=== PATIENT | female | born 1995 | race Caucasian/White ===

== ENCOUNTER 2022-07-21 11:40 | Day surgery (SDC) | payer OTHER, SELFPAY ==
[2022-07-21] VITALS (13 sets, daily range): BP systolic 110–158; BP diastolic 57–99; PULSE 86–136; RESP 12–26; TEMP 36.6–36.9; O2SAT 93–100; BMI 45.2
[2022-07-21 12:16] LABS: Hematocrit 40.3 % (36.0-48.0); Hemoglobin 13.6 g/dL (12.0-16.0); Mean Corpuscular HGB Conc 33.7 g/dL (29.9-35.2); Mean Corpuscular Volume 85.9 fL (81.0-99.0); Mean Platelet Volume 9.9 fL (9.5-13.5); Platelet Count 231 10^3/uL (150-450); Red Blood Count 4.69 10^6/uL (4.20-5.40); Red Cell Distribution Width 13.1 % (11.0-15.0); White Blood Count 8.1 10^3/uL (4.0-11.0)
[2022-07-21] MEDS: LACTATED RINGER'S SOLUTION 1,000 ML 50 ML IV ×3 (12:31→17:21)
[2022-07-21] MEDS: SCOPOLAMINE 1 EACH PATCH.TD.3 1 PATCH TD (12:50)
--- NOTE | 2022-07-21 15:17 | PC.NURSE ---
250 ML CLEAR PALE URINE NOTED
[2022-07-21] MEDS: LORAZEPAM 2 MG/ML 1 ML VIAL 0.5 MG IV (16:17)
[2022-07-21] MEDS: MIDAZOLAM HCL 2 MG/2 ML VIAL (16:24)
[2022-07-21] MEDS: HYDROMORPHONE HCL 1 MG/ML CARTRIDGE INJ (16:27)
--- NOTE | 2022-07-21 16:32 | PC.NURSE ---
1600- Patient arrives to PACU bay #2. Patient unresponsive to verbal and tactile stimuli. 1607- Patient jerking and shaking in bed. Unable to arouse patient. Pupil equal in size. Dr. Hallman aware. New orders received and patient medicated with Versed as ordered. 1617- Patient continues with jerking and twitching motion. Patient medicated with Ativan as ordered. Patient remains non-responsive to verbal and tactile stimuli. 1627- Patient more awake and c/o abdomina pain. Patient medicated with Dilaudid for pain as ordered.
[2022-07-21] MEDS: PROMETHAZINE HCL 25 MG/ML VIAL IM (16:50)
--- NOTE | 2022-07-21 17:16 | PC.NURSE ---
states that she typically requires a lot of pain medication.
--- NOTE | 2022-09-16 07:46 | PM.ONB ---
Brief Operative Note Date of procedure: 07/21/22 Pre-op diagnosis: PELVIC PAIN Post-op diagnosis: same Procedure: NAME OF PROCEDURE: [diagnostic laparoscopy with lysis of adhesions ] PROCEDURE: The patient was taken back to the Operating Room where she was placed in dorsal lithotomy position after given general anesthesia. The patient was prepped and draped in normal sterile fashion. A sponge stick was placed into the patient's vagina. Attention was turned to the patient's abdomen, where a small umbilical incision was made. The fascia was tented using Cherie clamps and the fascia was entered sharply. Confirmation of intraabdominal placement of the 10 mm port was confirmed under direct visualization using a laparoscope. The patient's abdomen was then insufflated using CO2 gas with approximately 4 liters. A second port was placed left laterally, this was done under direct visualization with a 5 mm port. Survey of the patient's abdomen demonstrated normal liver and gallbladder. Survey of the patient's pelvic anatomy demonstrated normal appearing ovaries and tubes as well as normal appearing uterus. No endometrial implants could be noted, no evidence of any pelvic disease was seen, normal appearing pelvic cavity. All instruments were removed from the patient's abdomen. The patient's abdomen was deinsufflated of CO2 gas. Lysis of adhesions bluntly The patient tolerated the procedure well. Sponge stick was removed from the patient's vagina. The patient's infraumbilical fascia was closed using #0 Vicryl on a GI needle. The patient's skin was closed laterally and infraumbilically using 4-0 Vicryl. The patient tolerated the procedure well. Sponge, lap and needle counts were correct x 2. The patient was taken to Recovery Room in stable condition.Clips from prior surgery noted adhered to bladder, the clips were grasped and gently removed
== END 2022-07-21 18:15 | disposition home or self-care (01) ==
LOC: SURGOUT 07-22 09:04
PROVIDERS: Visit Provider Obstetrics & Gynecology
PROC: (CPT 840; principal; 2022-07-21 13:20)
DX: R10.2 Pelvic and perineal pain (principal); N39.3 Stress incontinence (female) (male); J45.909 Unspecified asthma, uncomplicated; Z90.49 Acquired absence of other specified parts of digestive tract; Z90.710 Acquired absence of both cervix and uterus
CPT/HCPCS: 49329; 36415; 85027; J1170; J2704

== ENCOUNTER 2022-07-30 17:42 | Emergency (ER) | payer OTHER, SELFPAY ==
[2022-07-30 17:48] VITALS: BP 128/78; PULSE 85; RESP 16; TEMP 37.2; O2SAT 97; BMI 46.2
--- NOTE | 2022-07-30 18:23 | ED_ITS ---
HPI - Abdominal Pain General Chief Complaint: Abdominal Pain Stated Complaint: POST OP ISSUES Time Seen by Provider: 07/30/22 18:23 Source: patient Mode of arrival: walk-in History of Present Illness HPI narrative: Patient states on July 21 she had a laparoscopic surgery for lysis of adhesions done by Dr. Blas. She has nathan and the umbilical incision. She states she was given a prescription for 6-10 [place] since she is out of them. She states she is having pain just over the incision. She denies any abdominal pain, fever, chills, cough, chest pain, shortness of breath. She denies any wound adhesions, or drainage. She has taken Tylenol and Motrin has not had any relief of the pain. She denies any flank pain, hematuria, dysuria. She denies any vaginal bleeding, discharge. She denies any nausea, vomiting, diarrhea, or constipation. She denies any trauma. She has an appointment on Monday with Dr. Blas. Related Data Home Medications Medication Instructions Recorded Confirmed albuterol sulfate 0.63 mg/3 mL 90 mg inhalation Q4H PRN wheezing 07/20/22 07/20/22 solution for nebulization baclofen 10 mg tablet 10 mg PO Q8H 07/20/22 07/20/22 budesonide-formoterol HFA 160 2 inh inhalation BID 07/20/22 07/20/22 mcg-4.5 mcg/actuation aerosol inhaler (Symbicort) diazepam 10 mg tablet mg 07/20/22 epinephrine 0.3 mg/0.3 mL 0.3 mg IM Q10M PRN anaphylaxis 07/20/22 07/20/22 injection, auto-injector lamotrigine 150 mg tablet 150 mg PO .qhs 07/20/22 07/20/22 (Lamictal) lamotrigine 25 mg tablet (Lamictal) 25 mg PO QDAY 07/20/22 07/20/22 lithium carbonate 150 mg capsule 150 mg PO QDAY 07/20/22 07/20/22 lithium carbonate 300 mg tablet 300 mg PO .qhs 07/20/22 07/20/22 loratadine 10 mg tablet 10 mg PO QDAY 07/20/22 07/20/22 loratadine 10 mg tablet mg 07/20/22 montelukast 10 mg tablet mg 07/20/22 promethazine 25 mg tablet mg 07/20/22 trazodone 100 mg PO .qhs 07/20/22 07/20/22 Previous Rx's Medication Instructions Recorded amoxicillin 875 mg-potassium 1 tab PO Q12H #20 tabs 07/30/22 clavulanate 125 mg tablet hydrocodone 5 mg-acetaminophen 325 1 tab PO Q6H PRN pain 5 days #10 07/30/22 mg tablet tabs Allergies Allergy/AdvReac Type Severity Reaction Status Date / Time azithromycin [From Zithromax] AdvReac Intermediate Hives Verified 07/20/22 17:35 bee venom protein (honey bee) AdvReac Intermediate Hives Verified 07/20/22 17:35 metoclopramide [From Reglan] AdvReac Intermediate panic Verified 07/20/22 17:35 adhesive tape AdvReac Mild Rash Verified 07/20/22 17:35 cephalexin [From Keflex] AdvReac Mild Hives Verified 07/20/22 17:35 dextromethorphan AdvReac Mild Unknown Verified 07/20/22 17:35 [From [place] DM] pyrilamine [From [place] DM] AdvReac Mild Unknown Verified 07/20/22 17:35 propranolol AdvReac Hives Verified 07/20/22 17:35 Review of Systems ROS Status of ROS 10 or more systems reviewed and unremarkable except as noted in history and below [facility] Medical History (Updated 07/30/22 @ 18:40 by Shannon Payton MD) Surgical History (Updated 07/20/22 @ 18:18 by Irlanda Weiss RN) Family History (Updated 07/20/22 @ 17:40 by Irlanda Weiss RN) Other Acid reflux Acute renal disease Afib Chromosomal disorder Delayed developmental milestones Diabetes Family history of hypertension High cholesterol Neuro-irritability due to autonomic dysfunction Primary ciliary dyskinesia due to transposition of ciliary microtubules Pulmonary aspiration Tachycardia Social History (Updated 07/20/22 @ 18:20 by Irlanda Weiss, PRATIBHA) Within the past year, how often did you have a drink containing alcohol: never Score interpretation: A score less than 3 is consistent with normal alcohol consumption. 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 General: Nontoxic, Well-appearing and in no apparent distress. Skin: Warm, dry, no pallor noted. No Rash Head: Normocephalic, atraumatic. Neck: Supple, non-tender. Eye: Pupils are equal, round and EOMI. No scleral icterus. Ears, Nose, Mouth, and Throat: TM clear, no posterior oropharynx erythema or nasal mucosal hypertrophy, uvula is mid-line Oral mucosa is moist Cardiovascular: Regular Rate and Rhythm without murmur, gallop or rub. Respiratory: No accessory muscle use or respiratory distress. Lungs are clear to auscultation, no wheezing, rales or rhonchi Chest Wall: no tenderness Back: No midline thoracic or lumbar vertebral tenderness. No CVA tenderness Musculoskeletal: normal ROM, no calf or popliteal tenderness, no lower ex tremity edema/swelling GI: obese, Abdomen is soft, non-distended. Normal bowel sounds. No masses appreciated. Infraumbilical incision with nathan in place. This is small amount of localized erythema. There is no dehiscence noted no drainage. No areas of fluctuance. No tenderness to palpation. No rebound, guarding, or rigidity noted. Neurological: A&O x4. No cranial nerve dysfunction observed. No truncal ataxia. Moves all extremities. Sensation intact. Psychiatric: Cooperative and interactive. Normal mood and affect. Constitutional Vital Signs - 24 hr 07/30/22 17:48 Temperature 99.0 F Pulse Rate [Monitor] 85 Respiratory Rate 16 Blood Pressure [Right Arm] 128/78 H Pulse Oximetry 97 Oxygen Delivery Method Room Air Course Vital Signs Vital signs: Vital Signs Temperature 99.0 F 07/30/22 17:48 Pulse Rate 85 07/30/22 17:48 Respiratory Rate 16 07/30/22 17:48 Blood Pressure 128/78 H 07/30/22 17:48 Pulse Oximetry 97 07/30/22 17:48 Oxygen Delivery Method Room Air 07/30/22 17:48 Temperature 99.0 F 07/30/22 17:48 Pulse Rate 85 07/30/22 17:48 Respiratory Rate 16 07/30/22 17:48 Blood Pressure 128/78 H 07/30/22 17:48 Pulse Oximetry 97 07/30/22 17:48 Oxygen Delivery Method Room Air 07/30/22 17:48 MDM - Abdominal Pain MDM Narrative Medical decision making narrative: Patient denied abdominal pain. She states the pain is just in the incision. She is out of her pain medication. We discussed wound care. Patient was given a prescription for 10 Av[place]am and Augmentin. Patient is passing gas. She states she has taken amoxicillin in the past without any problems. She is nontoxic, abdomen is benign and nonsurgical. Stable for outpatient follow-up and treatment. At this time the patient is without objective evidence of an acute process requiring hospitalization or inpatient management. The patient has remained hemodynamically stable. No additional indication for emergent studies at this time. I answered all questions. Discussed discharge instructions including standard anticipatory guidance and what should prompt a return to the emergency department, including if they get worse are not getting better or develops any new or concerning symptoms. I've given them specific time frame in which to fol low-up, and who to follow-up with. The patient demonstrates understanding. Patient is nontoxic and stable for discharge with outpatient follow-up. This note was created with the assistance of a speech recognition program. Although the intention is to generate documents that actually reflects the content of the visit, no guarantees can be provided that every mistake has been identified and corrected by editing. Differential Diagnosis Differential diagnosis: Likely abdominal pain and acute appendicitis Lab Data Attestation: I reviewed the patient's lab results. Discharge Plan Discharge Chief Complaint: Abdominal Pain Clinical Impression: Post-op pain Patient Disposition: Home, Self-Care Time of Disposition Decision: 18:39 Condition: Good Mode of Transportation: Private Vehicle Prescriptions / Home Meds: New hydrocodone-acetaminophen 5-325 mg tablet 1 tab PO Q6H PRN (Reason: pain) 5 Days Qty: 10 0RF Rx Instructions: G89.18 amoxicillin-pot clavulanate 875-125 mg tablet 1 tab PO Q12H Qty: 20 0RF No Action albuterol sulfate 0.63 mg/3 mL solution for nebulization 90 mg inhalation Q4H PRN (Reason: wheezing) baclofen 10 mg tablet 10 mg PO Q8H lamotrigine [Lamictal] 150 mg tablet 150 mg PO .qhs loratadine 10 mg tablet 10 mg PO QDAY montelukast 10 mg tablet loratadine 10 mg tablet budesonide-formoterol [Symbicort] 160-4.5 mcg/actuation HFA aerosol inhaler 2 inh inhalation BID lamotrigine [Lamictal] 25 mg tablet 25 mg PO QDAY diazepam 10 mg tablet epinephrine 0.3 mg/0.3 mL auto-injector 0.3 mg IM Q10M PRN (Reason: anaphylaxis) Rx Instructions: for 2 doses lithium carbonate 150 mg capsule 150 mg PO QDAY lithium carbonate 300 mg tablet 300 mg PO .qhs promethazine 25 mg tablet trazodone 100 mg PO .qhs Instructions: Acute Wounds (ED) Stand Alone Forms: Portal Instructions Referrals: Zay Blas DO [Physician] - 08/02/22 (as scheduled) Lamont Blair MD [Primary Care Provider] - 1 week
== END 2022-07-30 18:53 | disposition home or self-care (01) ==
PROVIDERS: Emergency Provider Emergency Medicine; PCP Family Medicine
DX: G89.18 Other acute postprocedural pain (principal); R10.9 Unspecified abdominal pain; Z79.899 Other long term (current) drug therapy
CPT/HCPCS: 99282

== ENCOUNTER 2022-08-08 19:06 | Emergency (ER) | payer OTHER, SELFPAY ==
[2022-08-08 19:17] VITALS: BP 130/93; PULSE 91; RESP 18; TEMP 36.9; O2SAT 100; BMI 47.2
[2022-08-08 19:33] VITALS: BP 117/74; PULSE 81; RESP 16; TEMP 37.1; O2SAT 100; BMI 47.2
--- NOTE | 2022-08-08 19:53 | ED_ITS ---
HPI - General Adult General Chief complaint: Headache Stated complaint: HEADACHE, NAUSEA Time Seen by Provider: 08/08/22 19:11 Source: patient Mode of arrival: walk-in Limitations: no limitations History of Present Illness HPI narrative: the patient presented just with a headache for the last five days she has history of migraine she mentioned that the headache is associated with photosensitivity and nausea and that she usually get very frequently denying any head trauma or any other reason for headache right now The patient mentioned that usually she will get better by coming to the IV infusion of Phenergan Related Data Home Medications Medication Instructions Recorded Confirmed albuterol sulfate 0.63 mg/3 mL 90 mg inhalation Q4H PRN wheezing 07/20/22 08/08/22 solution for nebulization baclofen 10 mg tablet 10 mg PO Q8H 07/20/22 08/08/22 budesonide-formoterol HFA 160 2 inh inhalation BID 07/20/22 08/08/22 mcg-4.5 mcg/actuation aerosol inhaler (Symbicort) diazepam 10 mg tablet 10 mg PO BID 07/20/22 08/08/22 epinephrine 0.3 mg/0.3 mL 0.3 mg IM Q10M PRN anaphylaxis 07/20/22 08/08/22 injection, auto-injector lamotrigine 150 mg tablet 150 mg PO .qhs 07/20/22 08/08/22 (Lamictal) lamotrigine 25 mg tablet (Lamictal) 25 mg PO QDAY 07/20/22 08/08/22 lithium carbonate 150 mg capsule 150 mg PO QDAY 07/20/22 08/08/22 lithium carbonate 300 mg tablet 300 mg PO .qhs 07/20/22 08/08/22 montelukast 10 mg tablet 10 mg PO DAILY PRN allergies 07/20/22 08/08/22 trazodone 100 mg PO .qhs 07/20/22 08/08/22 codeine 10 mg-guaifenesin 100 mg/5 10 ml PO DAILY PRN cough 08/08/22 08/08/22 mL oral liquid Previous Rx's Medication Instructions Recorded amoxicillin 875 mg-potassium 1 tab PO Q12H #20 tabs 07/30/22 clavulanate 125 mg tablet meloxicam 15 mg tablet 15 mg PO DAILY PRN pain #10 tabs 08/08/22 Allergies Allergy/AdvReac Type Severity Reaction Status Date / Time dihydroergotamine Allergy Severe Rash Verified 08/08/22 19:44 azithromycin [From Zithromax] AdvReac Intermediate Hives Verified 08/08/22 19:44 bee venom protein (honey bee) AdvReac Intermediate Hives Verified 08/08/22 19:44 metoclopramide [From Reglan] AdvReac Intermediate panic Verified 08/08/22 19:44 adhesive tape AdvReac Mild Rash Verified 08/08/22 19:44 cephalexin [From Keflex] AdvReac Mild Hives Verified 08/08/22 19:44 dextromethorphan AdvReac Mild Unknown Verified 08/08/22 19:44 [From [place] DM] pyrilamine [From [place] DM] AdvReac Mild Unknown Verified 08/08/22 19:44 propranolol AdvReac Hives Verified 08/08/22 19:44 Review of Systems ROS Status of ROS 10 or more systems reviewed and unremarkable except as noted in history and below [facility] Medical History (Updated 08/08/22 @ 20:41 by Komal Damian MD) Surgical History (Updated 07/20/22 @ 18:18 by Irlanda Weiss RN) Family History (Updated 07/20/22 @ 17:40 by Irlanda Weiss, PRATIBHA) Other Acid reflux Acute renal disease Afib Chromosomal disorder Delayed developmental milestones Diabetes Family history of hypertension High cholesterol Neuro-irritability due to autonomic dysfunction Primary ciliary dyskinesia due to transposition of ciliary microtubules Pulmonary aspiration Tachycardia Social History (Updated 07/20/22 @ 18:20 by Irlanda Weiss, PRATIBHA) Within the past year, how often did you have a drink containing alcohol: never Score interpretation: A score less than 3 is consistent with normal alcohol consumption. 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 General: Well-appearing and in no apparent distress. Skin: Warm, dry, no pallor noted. No rash. Head: Normocephalic, atraumatic. Neck: Supple, non-tender. Eye: Pupils are equal, round and EOMI. No scleral icterus. Ears, Nose, Mouth, and Throat: TM are clear, no nasal mucosal hypertrophy. Oral mucosa is moist, no posterior oropharynx erythema, uvula is mid-line Cardiovascular: Regular Rate and Rhythm without murmur, gallop or rub. Respiratory: No accessory muscle use or respiratory distress. Lungs are clear to auscultation, no wheezing, rales or rhonchi Chest Wall: no tenderness Back: No midline thoracic or lumbar vertebral tenderness. No CVA tenderness Musculoskeletal: normal ROM, no calf or popliteal tenderness, no lower extremity edema/swelling GI: Abdomen is soft, non-distended. Normal bowel sounds. No masses appreciated. No tenderness to palpation. No rebound, guarding, or rigidity noted. Neurological: A&O x4. No cranial nerve dysfunction observed. No truncal ataxia. Moves all extremities. Sensation intact. Psychiatric: Cooperative and interactive. Normal mood and affect. Constitutional Vital Signs - 24 hr 08/08/22 19:17 08/08/22 19:33 08/08/22 21:51 Temperature 98.4 F 98.8 F Pulse Rate [Monitor] 91 H 81 74 Respiratory Rate 18 16 18 Blood Pressure [Left Arm] 130/93 H 117/74 104/63 Pulse Oximetry 100 100 98 Oxygen Delivery Method Room Air Room Air Room Air Course Vital Signs Vital signs: Vital Signs Temperature 98.4 F 08/08/22 19:17 Pulse Rate 91 H 08/08/22 19:17 Respiratory Rate 18 08/08/22 19:17 Blood Pressure 130/93 H 08/08/22 19:17 Pulse Oximetry 100 08/08/22 19:17 Oxygen Delivery Method Room Air 08/08/22 19:17 Temperature 98.8 F 08/08/22 19:33 Pulse Rate 74 08/08/22 21:51 Respiratory Rate 18 08/08/22 21:51 Blood Pressure 104/63 08/08/22 21:51 Pulse Oximetry 98 08/08/22 21:51 Oxygen Delivery Method Room Air 08/08/22 21:51 Medical Decision Making MDM Narrative Medical decision making narrative: the patient was treated in the Emergency Room with IV Phenergan as well as IV Toradol-----it was noted that after the treatment was over the patient was sleeping when he presented to evaluate her she mentioned that the headache is we nt down from ten over to 09/29 I explained to the patient that she will be discharged with anti-inflammatory and need to follow-up with her neurologist outpatient I explained to the patient after she asked about giving her one dose of Keppra that right now she will be discharged to follow up with neurology as an outpatient and Not indicated that the movement for treatment of the migraine The patient is to followup with primary care physician in next 2-3 days or to return to the emergency department should any of the signs or symptoms worsen or new symptoms develop. The patient agrees with the following Diagnosis and Treatment plan and the patient will be discharged home. Discharge Plan Discharge Chief Complaint: Headache Clinical Impression: Migraine Patient Disposition: Home, Self-Care Time of Disposition Decision: 22:10 Condition: Fair Mode of Transportation: Private Vehicle Prescriptions / Home Meds: New meloxicam 15 mg tablet 15 mg PO DAILY PRN (Reason: pain) Qty: 10 0RF No Action albuterol sulfate 0.63 mg/3 mL solution for nebulization 90 mg inhalation Q4H PRN (Reason: wheezing) baclofen 10 mg tablet 10 mg PO Q8H lamotrigine [Lamictal] 150 mg tablet 150 mg PO .qhs montelukast 10 mg tablet 10 mg PO DAILY PRN (Reason: allergies) budesonide-formoterol [Symbicort] 160-4.5 mcg/actuation HFA aerosol inhaler 2 inh inhalation BID lamotrigine [Lamictal] 25 mg tablet 25 mg PO QDAY diazepam 10 mg tablet 10 mg PO BID epinephrine 0.3 mg/0.3 mL auto-injector 0.3 mg IM Q10M PRN (Reason: anaphylaxis) Rx Instructions: for 2 doses lithium carbonate 150 mg capsule 150 mg PO QDAY lithium carbonate 300 mg tablet 300 mg PO .qhs trazodone 100 mg PO .qhs codeine-guaifenesin 10-100 mg/5 mL liquid 10 ml PO DAILY PRN (Reason: cough) amoxicillin-pot clavulanate 875-125 mg tablet 1 tab PO Q12H Qty: 20 0RF Instructions: Acute Headache (ED) Stand Alone Forms: Portal Instructions Referrals: Lamont Blair MD [Primary Care Provider] - 1 week Discharge Date/Time: 08/08/22 22:32
[2022-08-08] MEDS: KETOROLAC TROMETHAMINE 30 MG/ML VIAL 15 MG IVP (20:31)
[2022-08-08] MEDS: PROMETHAZINE HCL 25 MG in 0.9 % SODIUM CHLORIDE 50 ML 204 MG IV (20:31)
--- NOTE | 2022-08-08 21:49 | PC.NURSE ---
Patient woken for reassessment. States pain still bad. 09/29
[2022-08-08 21:51] VITALS: BP 104/63; PULSE 74; RESP 18; O2SAT 98
== END 2022-08-08 22:32 | disposition home or self-care (01) ==
PROVIDERS: Emergency Provider Emergency Medicine; PCP Family Medicine
DX: G43.909 Migraine, unspecified, not intractable, without status migrainosus (principal); Z79.899 Other long term (current) drug therapy
CPT/HCPCS: 96365; 96375; 99284

== ENCOUNTER 2022-08-31 16:16 | Emergency (ER) | payer OTHER, SELFPAY ==
[2022-08-31 16:20] VITALS: BP 110/64; PULSE 90; RESP 18; TEMP 36.6; O2SAT 97; BMI 45.3
--- NOTE | 2022-08-31 16:45 | ED_ITS ---
HPI - General Adult General Chief complaint: Headache Stated complaint: HEADACHE-MIGRAIN Time Seen by Provider: 08/31/22 16:28 Source: patient Mode of arrival: walk-in Limitations: no limitations History of Present Illness HPI narrative: 26-year-old female with past medical history of seizures and migraines presents for migraine for the past 7 days. Headache is located in the frontal area as well as the back of the neck. She complains of nausea. Gradual in onset and denies thunderclap headache. Admits to photophobia. She had an IM Solu-Medrol today by her PCP without relief. She had Toradol and Phenergan called into the pharmacy, but is not ready yet. She states that they just increased her Keppra for her headaches. Denies fever, dizziness, vision changes Related Data Home Medications Medication Instructions Recorded Confirmed albuterol sulfate 0.63 mg/3 mL 90 mg inhalation Q4H PRN wheezing 07/20/22 08/08/22 solution for nebulization baclofen 10 mg tablet 10 mg PO Q8H 07/20/22 08/08/22 budesonide-formoterol HFA 160 2 inh inhalation BID 07/20/22 08/08/22 mcg-4.5 mcg/actuation aerosol inhaler (Symbicort) diazepam 10 mg tablet 10 mg PO BID 07/20/22 08/08/22 epinephrine 0.3 mg/0.3 mL 0.3 mg IM Q10M PRN anaphylaxis 07/20/22 08/08/22 injection, auto-injector lamotrigine 150 mg tablet 150 mg PO .qhs 07/20/22 08/08/22 (Lamictal) lamotrigine 25 mg tablet (Lamictal) 25 mg PO QDAY 07/20/22 08/08/22 lithium carbonate 150 mg capsule 150 mg PO QDAY 07/20/22 08/08/22 lithium carbonate 300 mg tablet 300 mg PO .qhs 07/20/22 08/08/22 montelukast 10 mg tablet 10 mg PO DAILY PRN allergies 07/20/22 08/08/22 trazodone 100 mg PO .qhs 07/20/22 08/08/22 codeine 10 mg-guaifenesin 100 mg/5 10 ml PO DAILY PRN cough 08/08/22 08/08/22 mL oral liquid Previous Rx's Medication Instructions Recorded amoxicillin 875 mg-potassium 1 tab PO Q12H #20 tabs 07/30/22 clavulanate 125 mg tablet meloxicam 15 mg tablet 15 mg PO DAILY PRN pain #10 tabs 08/08/22 Allergies Allergy/AdvReac Type Severity Reaction Status Date / Time dihydroergotamine Allergy Severe Rash Verified 08/08/22 19:44 azithromycin [From Zithromax] AdvReac Intermediate Hives Verified 08/08/22 19:44 bee venom protein (honey bee) AdvReac Intermediate Hives Verified 08/08/22 19:44 metoclopramide [From Reglan] AdvReac Intermediate panic Verified 08/08/22 19:44 adhesive tape AdvReac Mild Rash Verified 08/08/22 19:44 cephalexin [From Keflex] AdvReac Mild Hives Verified 08/08/22 19:44 dextromethorphan AdvReac Mild Unknown Verified 08/08/22 19:44 [From [place] DM] pyrilamine [From [place] [facility]] AdvReac Mild Unknown Verified 08/08/22 19:44 propranolol AdvReac Hives Verified 08/08/22 19:44 Review of Systems ROS Status of ROS 10 or more systems reviewed and unremarkable except as noted in history and below [facility] Medical History (Updated 08/31/22 @ 16:52 by MARY Yadav) Surgical History (Updated 07/20/22 @ 18:18 by Irlanda Weiss RN) Family History (Updated 07/20/22 @ 17:40 by Irlanda Weiss RN) Other Acid reflux Acute renal disease Afib Chromosomal disorder Delayed developmental milestones Diabetes Family history of hypertension High cholesterol Neuro-irritability due to autonomic dysfunction Primary ciliary dyskinesia due to transposition of ciliary microtubules Pulmonary aspiration Tachycardia Social History (Updated 07/20/22 @ 18:20 by Irlanda Weiss RN) Within the past year, how often did you have a drink containing alcohol: never Score interpretation: A score less than 3 is consistent with normal alcohol consumption. 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 level of school completed/degree received: high school graduate Exam Narrative Exam Narrative: General: A&Ox3, no distress, talking in full an complete sentences skin: warm, dry, intact head: normocephalic, atraumatic eyes: PERRLA, EOMI, normal conjunctiva, no nystagmus nose: nares patent neck: supple, trachea midline, bilateral occipital neuralgia respiratory: non-labored, no wheezing, no retractions extremities: FROM x 4, strength +5/5 neuro: A&Ox3, no focal deficits psych: appropriate mood and affect, cooperative Constitutional Vital Signs, click to edit/add: Last Vital Signs Temp 98 F 08/31/22 16:20 Pulse 90 08/31/22 16:20 Resp 18 08/31/22 16:20 BP 110/64 08/31/22 16:20 Pulse Ox 97 08/31/22 16:20 O2 Del Method Room Air 08/31/22 16:20 Course Vital Signs Vital signs: Vital Signs Temperature 98 F 08/31/22 16:20 Pulse Rate 90 08/31/22 16:20 Respiratory Rate 18 08/31/22 16:20 Blood Pressure 110/64 08/31/22 16:20 Pulse Oximetry 97 08/31/22 16:20 Oxygen Delivery Method Room Air 08/31/22 16:20 Temperature 98 F 08/31/22 16:20 Pulse Rate 90 08/31/22 16:20 Respiratory Rate 18 08/31/22 16:20 Blood Pressure 110/64 08/31/22 16:20 Pulse Oximetry 97 08/31/22 16:20 Oxygen Delivery Method Room Air 08/31/22 16:20 Medical Decision Making MDM Narrative Medical decision making narrative: Medical records reviewed and she has 2 previous visits for pain. Patient is medicated with Toradol and Phenergan. She has bilateral occipital tenderness and will be given Norflex. Upon recheck, patient states that her pain has improved and she is ready to be discharged home. She is to follow-up with her neurologist and pick her prescriptions up that are at the pharmacy that were prescribed today. Afebrile, not tachycardic, not hypoxic, non toxic appearing and ambulating at baseline and hemodynamically stable to be d/c. answered all questions. pt in agreement with tx. educated when to return to ER. Discharge Plan Discharge Chief Complaint: Headache Clinical Impression: Bilateral occipital neuralgia Migraine Qualifiers: Migraine type: unspecified Status migrainosus presence: without status migrainosus Intractability: not intractable Qualified Code(s): G43.909 - Migraine, unspecified, not intractable, without status migrainosus Patient Disposition: Home, Self-Care Time of Disposition Decision: 18:02 Mode of Transportation: Private Vehicle Prescriptions / Home Meds: No Action albuterol sulfate 0.63 mg/3 mL solution for nebulization 90 mg inhalation Q4H PRN (Reason: wheezing) baclofen 10 mg tablet 10 mg PO Q8H lamotrigine [Lamictal] 150 mg tablet 150 mg PO .qhs montelukast 10 mg tablet 10 mg PO DAILY PRN (Reason: allergies) budesonide-formoterol [Symbicort] 160-4.5 mcg/actuation HFA aerosol inhaler 2 inh inhalation BID lamotrigine [Lamictal] 25 mg tablet 25 mg PO QDAY diazepam 10 mg tablet 10 mg PO BID epinephrine 0.3 mg/0.3 mL auto-injector 0.3 mg IM Q10M PRN (Reason: anaphylaxis) Rx Instructions: for 2 doses lithium carbonate 150 mg capsule 150 mg PO QDAY lithium carbonate 300 mg tablet 300 mg PO .qhs trazodone 100 mg PO .qhs codeine-guaifenesin 10-100 mg/5 mL liquid 10 ml PO DAILY PRN (Reason: cough) meloxicam 15 mg tablet 15 mg PO DAILY PRN (Reason: pain) Qty: 10 0RF amoxicillin-pot clavulanate 875-125 mg tablet 1 tab PO Q12H Qty: 20 0RF Instructions: Migraine Headache (ED) Stand Alone Forms: Portal Instructions Referrals: Lamont Blair MD [Primary Care Provider] - 1 week
[2022-08-31] MEDS: ORPHENADRINE 60 MG/ 2 ML VIAL 30 MG IV (17:23)
[2022-08-31] MEDS: 0.9 % SODIUM CHLORIDE 1,000 ML 1000 ML IV (17:23)
[2022-08-31] MEDS: PROMETHAZINE HCL 25 MG/ML VIAL 12.5 MG IV (17:23)
[2022-08-31] MEDS: KETOROLAC TROMETHAMINE 30 MG/ML VIAL 15 MG IVP (17:23)
== END 2022-08-31 18:19 | disposition home or self-care (01) ==
PROVIDERS: Emergency Provider Emergency Medicine Emergency Medical Services; PCP Family Medicine
DX: M54.81 Occipital neuralgia (principal); Z79.899 Other long term (current) drug therapy
CPT/HCPCS: 96374; 96375; 99284

== ENCOUNTER 2022-09-28 14:50 | Emergency (ER) | payer OTHER, SELFPAY ==
[2022-09-28 14:54] VITALS: BP 116/79; PULSE 95; RESP 16; TEMP 36.8; O2SAT 98; BMI 45.3
--- NOTE | 2022-09-28 15:36 | ED.GENADUL1 ---
Documented by User: MARY Celis 09/28/22 15:36 HPI - General Adult General Chief complaint: Headache Stated complaint: HEADACHE Time Seen by Provider: 09/28/22 15:35 Source: patient Mode of arrival: walk-in Limitations: no limitations Related Data Home Medications Medication Instructions Recorded Confirmed albuterol sulfate 0.63 mg/3 mL 90 mg inhalation Q4H PRN wheezing 07/20/22 08/08/22 solution for nebulization baclofen 10 mg tablet 10 mg PO Q8H 07/20/22 08/08/22 budesonide-formoterol HFA 160 2 inh inhalation BID 07/20/22 08/08/22 mcg-4.5 mcg/actuation aerosol inhaler (Symbicort) diazepam 10 mg tablet 10 mg PO BID 07/20/22 08/08/22 epinephrine 0.3 mg/0.3 mL 0.3 mg IM Q10M PRN anaphylaxis 07/20/22 08/08/22 injection, auto-injector lamotrigine 150 mg tablet 150 mg PO .qhs 07/20/22 08/08/22 (Lamictal) lamotrigine 25 mg tablet (Lamictal) 25 mg PO QDAY 07/20/22 08/08/22 lithium carbonate 150 mg capsule 150 mg PO QDAY 07/20/22 08/08/22 lithium carbonate 300 mg tablet 300 mg PO .qhs 07/20/22 08/08/22 montelukast 10 mg tablet 10 mg PO DAILY PRN allergies 07/20/22 08/08/22 trazodone 100 mg PO .qhs 07/20/22 08/08/22 codeine 10 mg-guaifenesin 100 mg/5 10 ml PO DAILY PRN cough 08/08/22 08/08/22 mL oral liquid Previous Rx's Medication Instructions Recorded amoxicillin 875 mg-potassium 1 tab PO Q12H #20 tabs 07/30/22 clavulanate 125 mg tablet meloxicam 15 mg tablet 15 mg PO DAILY PRN pain #10 tabs 08/08/22 promethazine 25 mg rectal 25 mg NM Q6H PRN nausea and 09/28/22 suppository vomiting #6 ea promethazine 25 mg tablet 25 mg PO BID PRN nausea and 09/28/22 vomiting #7 tabs Allergies Allergy/AdvReac Type Severity Reaction Status Date / Time dihydroergotamine Allergy Severe Rash Verified 08/08/22 19:44 azithromycin [From Zithromax] AdvReac Intermediate Hives Verified 08/08/22 19:44 bee venom protein (honey bee) AdvReac Intermediate Hives Verified 08/08/22 19:44 metoclopramide [From Reglan] AdvReac Intermediate panic Verified 08/08/22 19:44 adhesive tape AdvReac Mild Rash Verified 08/08/22 19:44 cephalexin [From Keflex] AdvReac Mild Hives Verified 08/08/22 19:44 dextromethorphan AdvReac Mild Unknown Verified 08/08/22 19:44 [From [place] DM] pyrilamine [From [place] [facility]] AdvReac Mild Unknown Verified 08/08/22 19:44 propranolol AdvReac Hives Verified 08/08/22 19:44 [facility] Medical History (Updated 09/28/22 @ 19:16 by Kings Wallace MD) Surgical History (Updated 07/20/22 @ 18:18 by Irlanda Weiss, PRATIBHA) Family History (Updated 07/20/22 @ 17:40 by Irlanda Weiss, PRATIBHA) Other Acid reflux Acute renal disease Afib Chromosomal disorder Delayed developmental milestones Diabetes Family history of hypertension High cholesterol Neuro-irritability due to autonomic dysfunction Primary ciliary dyskinesia due to transposition of ciliary microtubules Pulmonary aspiration Tachycardia Social History (Updated 07/20/22 @ 18:20 by Irlanda Weiss, RN) Within the past year, how often did you have a drink containing alcohol: never Score interpretation: A score less than 3 is consistent with normal alcohol consumption. 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 level of school completed/degree received: high school graduate Exam Constitutional Vital Signs, click to edit/add: Last Vital Signs Temp 98.3 F 09/28/22 14:54 Pulse 75 09/28/22 18:21 Resp 16 09/28/22 18:21 BP 131/75 09/28/22 18:21 Pulse Ox 100 09/28/22 18:27 O2 Del Method Room Air 09/28/22 18:27 Course Vital Signs Vital signs: Vital Signs Temperature 98.3 F 09/28/22 14:54 Pulse Rate 95 H 09/28/22 14:54 Respiratory Rate 16 09/28/22 14:54 Blood Pressure 116/79 09/28/22 14:54 Pulse Oximetry 98 09/28/22 14:54 Oxygen Delivery Method Room Air 09/28/22 14:54 Temperature 98.3 F 09/28/22 14:54 Pulse Rate 75 09/28/22 18:21 Respiratory Rate 16 09/28/22 18:21 Blood Pressure 131/75 09/28/22 18:21 Pulse Oximetry 100 09/28/22 18:27 Oxygen Delivery Method Room Air 09/28/22 18:27 Discharge Plan Discharge Chief Complaint: Headache Clinical Impression: Headache Patient Disposition: Home, Self-Care Condition: Fair Prescriptions / Home Meds: New promethazine 25 mg suppository 25 mg NM Q6H PRN (Reason: nausea and vomiting) Qty: 6 0RF promethazine 25 mg tablet 25 mg PO BID PRN (Reason: nausea and vomiting) Qty: 7 0RF No Action albuterol sulfate 0.63 mg/3 mL solution for nebulization 90 mg inhalation Q4H PRN (Reason: wheezing) baclofen 10 mg tablet 10 mg PO Q8H lamotrigine [Lamictal] 150 mg tablet 150 mg PO .qhs montelukast 10 mg tablet 10 mg PO DAILY PRN (Reason: allergies) budesonide-formoterol [Symbicort] 160-4.5 mcg/actuation HFA aerosol inhaler 2 inh inhalation BID lamotrigine [Lamictal] 25 mg tablet 25 mg PO QDAY diazepam 10 mg tablet 10 mg PO BID epinephrine 0.3 mg/0.3 mL auto-injector 0.3 mg IM Q10M PRN (Reason: anaphylaxis) Rx Instructions: for 2 doses lithium carbonate 150 mg capsule 150 mg PO QDAY lithium carbonate 300 mg tablet 300 mg PO .qhs trazodone 100 mg PO .qhs codeine-guaifenesin 10-100 mg/5 mL liquid 10 ml PO DAILY PRN (Reason: cough) meloxicam 15 mg tablet 15 mg PO DAILY PRN (Reason: pain) Qty: 10 0RF amoxicillin-pot clavulanate 875-125 mg tablet 1 tab PO Q12H Qty: 20 0RF Instructions: Acute Headache (ED), Acute Nausea and Vomiting (ED) Additional Instructions: Follow-up with the neurologist and psychiatrist. Stand Alone Forms: Portal Instructions Referrals: Lamont Blair MD [Primary Care Provider] - 1 week Discharge Date/Time: 09/28/22 19:20 Documented by User: Kings Wallace MD 09/28/22 19:44 HPI - General Adult General Chief complaint: Headache Stated complaint: HEADACHE Time Seen by Provider: 09/28/22 15:35 History of Present Illness HPI narrative: Patient is a 26-year-old female who is presenting to the Emergency Room with chief complaint of acute on chronic headache. Patient states the headaches and there continuously for the past week. Patient was do to have injections to her cervical spine on Monday, and then insurance denied or refused injections because she is having Botox injections next week. Patient has a neurologist at the [facility], she also has a psychiatrist at the [facility] as well. Patient states She is having bilateral frontomaxillary headache. Patient also had nausea and vomiting home. Patient has Zofran at home that is not helping. Patient has photophobia and phonophobia. Patient was dropped off to the Emergency Room by her boyfriend. Patient takes multiple psychiatric medications. Patient is seeing her psychiatrist on Monday. Patient also has been taking a stimulant to help give her energy during the day. She was taking 100 mg, the increasing to 200 mg of the stimulant of modonafil. Patient believes the increase in the stimulant is what caused her headaches in the past 7 days. Patient has decreased it back 200 mg today but came into the Emergency Room for evaluation of her acute on chronic headaches. Patient feels her mouth is dry. Patient has had Phenergan before the posterior headaches. Patient states she cannot take Reglan. Patient has diffuse abdominal cramping, she's had a complete hysterectomy. Patient denies any fall or abuse. No acute complaints. . All systems are negative except as noted/marked. All systems reviewed and otherwise negative. . Nurses note and vital signs reviewed and patient is not hypoxic. General: The patient appears well and in no apparent distress. Patient is resting comfortably on cart. Patient is not toxic, lethargic, or listless Skin: Warm, dry, no pallor noted. There is no rash noted. No petechiae, purpura. Head: Normocephalic, atraumatic, Patient has reproducible bilateral frontal and maxillary tenderness to palpation, frontal greater than maxillary. Patient has mild tenderness to palpation to paracervical soft tissue, proximal C3-C7, no meningeal signs or symptoms. Eye: Normal conjunctiva, no drainage, EOMI. PERRL Ears, Nose, Mouth, and Throat: oral mucosa is moist, Not dry. No other intraoral pathology noted. Nares patent. Mouth without vesicles. Cardiovascular: Regular Rate and Rhythm, no murmur, gallop, rub Respiratory: Patient is in no distress, no accessory muscle use, lungs are clear to auscultation, no wheezing, rales or rhonchi Back: non-tender, no CVA tenderness bilaterally to percussion. No CT LS midline pain GI: soft, Obese, no tenderness to palpation, no masses appreciated. No rebound, guarding, or rigidity noted. No flank pain bilateral, No distention Musculoskeletal: Patient has full range of motion of all of the extremities, no motor, sensory, or focal neurological deficits Neurological: A&O x3, normal speech Psychiatric: Cooperative Related Data Home Medications Medication Instructions Recorded Confirmed albuterol sulfate 0.63 mg/3 mL 90 mg inhalation Q4H PRN wheezing 07/20/22 08/08/22 solution for nebulization baclofen 10 mg tablet 10 mg PO Q8H 07/20/22 08/08/22 budesonide-formoterol HFA 160 2 inh inhalation BID 07/20/22 08/08/22 mcg-4.5 mcg/actuation aerosol inhaler (Symbicort) diazepam 10 mg tablet 10 mg PO BID 07/20/22 08/08/22 epinephrine 0.3 mg/0.3 mL 0.3 mg IM Q10M PRN anaphylaxis 07/20/22 08/08/22 injection, auto-injector lamotrigine 150 mg tablet 150 mg PO .qhs 07/20/22 08/08/22 (Lamictal) lamotrigine 25 mg tablet (Lamictal) 25 mg PO QDAY 07/20/22 08/08/22 lithium carbonate 150 mg capsule 150 mg PO QDAY 07/20/22 08/08/22 lithium carbonate 300 mg tablet 300 mg PO .qhs 07/20/22 08/08/22 montelukast 10 mg tablet 10 mg PO DAILY PRN allergies 07/20/22 08/08/22 trazodone 100 mg PO .qhs 07/20/22 08/08/22 codeine 10 mg-guaifenesin 100 mg/5 10 ml PO DAILY PRN cough 08/08/22 08/08/22 mL oral liquid Previous Rx's Medication Instructions Recorded amoxicillin 875 mg-potassium 1 tab PO Q12H #20 tabs 07/30/22 clavulanate 125 mg tablet meloxicam 15 mg tablet 15 mg PO DAILY PRN pain #10 tabs 08/08/22 promethazine 25 mg rectal 25 mg NM Q6H PRN nausea and 09/28/22 suppository vomiting #6 ea promethazine 25 mg tablet 25 mg PO BID PRN nausea and 09/28/22 vomiting #7 tabs Allergies Allergy/AdvReac Type Severity Reaction Status Date / Time dihydroergotamine Allergy Severe Rash Verified 08/08/22 19:44 azithromycin [From Zithromax] AdvReac Intermediate Hives Verified 08/08/22 19:44 bee venom protein (honey bee) AdvReac Intermediate Hives Verified 08/08/22 19:44 metoclopramide [From Reglan] AdvReac Intermediate panic Verified 08/08/22 19:44 adhesive tape AdvReac Mild Rash Verified 08/08/22 19:44 cephalexin [From Keflex] AdvReac Mild Hives Verified 08/08/22 19:44 dextromethorphan AdvReac Mild Unknown Verified 08/08/22 19:44 [From [place] DM] pyrilamine [From [place] DM] AdvReac Mild Unknown Verified 08/08/22 19:44 propranolol AdvReac Hives Verified 08/08/22 19:44 [facility] Medical History (Updated 09/28/22 @ 19:16 by Kings Wallace MD) Surgical History (Updated 07/20/22 @ 18:18 by Irlanda Weiss RN) Family History (Updated 07/20/22 @ 17:40 by Irlanda Weiss RN) Other Acid reflux Acute renal disease Afib Chromosomal disorder Delayed developmental milestones Diabetes Family history of hypertension High cholesterol Neuro-irritability due to autonomic dysfunction Primary ciliary dyskinesia due to transposition of ciliary microtubules Pulmonary aspiration Tachycardia Social History (Updated 07/20/22 @ 18:20 by Irlanda Weiss RN) Within the past year, how often did you have a drink containing alcohol: never Score interpretation: A score less than 3 is consistent with normal alcohol consumption. 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 level of school completed/degree received: high school graduate Exam Constitutional Vital Signs, click to edit/add: Last Vital Signs Temp 98.3 F 09/28/22 14:54 Pulse 75 09/28/22 18:21 Resp 16 09/28/22 18:21 BP 131/75 09/28/22 18:21 Pulse Ox 100 09/28/22 18:27 O2 Del Method Room Air 09/28/22 18:27 Course Vital Signs Vital signs: Vital Signs Temperature 98.3 F 09/28/22 14:54 Pulse Rate 95 H 09/28/22 14:54 Respiratory Rate 16 09/28/22 14:54 Blood Pressure 116/79 09/28/22 14:54 Pulse Oximetry 98 09/28/22 14:54 Oxygen Delivery Method Room Air 09/28/22 14:54 Temperature 98.3 F 09/28/22 14:54 Pulse Rate 75 09/28/22 18:21 Respiratory Rate 16 09/28/22 18:21 Blood Pressure 131/75 09/28/22 18:21 Pulse Oximetry 100 09/28/22 18:27 Oxygen Delivery Method Room Air 09/28/22 18:27 Medical Decision Making [facility] Narrative Medical decision making narrative: 1750 Patient did call the nursing staff, patient was having some chest tightness, shortness of breath, itching as well. Patient had EKG that showed no acute changes, she is given Decadron and Benadryl. Patient's headache has not improved yet. Patient is aware she'll receive no narcotics for headaches today. Patient is not asking, I just educated the patient we don't treat headaches with narcotics typically 0 Patient was feeling better. The edges taken off her headache. Patient tolerated ice chips well without difficulty. Patient has no skin itching, irritation, chest pain or shortness of breath at discharge. Patient was educated to follow-up with her PCP and also psychiatrist. Patient will follow-up with her neurologist as well. Patient will continue medication as prescribed, no questions at discharge. ECG Data Attestation: I personally reviewed and interpreted this ECG as follows: Interpretation: EKG interpretation. Normal sinus rhythm at 70 beats a minute. right axis deviation. Q waves noted. No acute ST elevation, no ectopy, QTC of 411. Discharge Plan Discharge Chief Complaint: Headache Clinical Impression: Headache Patient Disposition: Home, Self-Care Condition: Fair Prescriptions / Home Meds: New promethazine 25 mg suppository 25 mg NM Q6H PRN (Reason: nausea and vomiting) Qty: 6 0RF promethazine 25 mg tablet 25 mg PO BID PRN (Reason: nausea and vomiting) Qty: 7 0RF No Action albuterol sulfate 0.63 mg/3 mL solution for nebulization 90 mg inhalation Q4H PRN (Reason: wheezing) baclofen 10 mg tablet 10 mg PO Q8H lamotrigine [Lamictal] 150 mg tablet 150 mg PO .qhs montelukast 10 mg tablet 10 mg PO DAILY PRN (Reason: allergies) budesonide-formoterol [Symbicort] 160-4.5 mcg/actuation HFA aerosol inhaler 2 inh inhalation BID lamotrigine [Lamictal] 25 mg tablet 25 mg PO QDAY diazepam 10 mg tablet 10 mg PO BID epinephrine 0.3 mg/0.3 mL auto-injector 0.3 mg IM Q10M PRN (Reason: anaphylaxis) Rx Instructions: for 2 doses lithium carbonate 150 mg capsule 150 mg PO QDAY lithium carbonate 300 mg tablet 300 mg PO .qhs trazodone 100 mg PO .qhs codeine-guaifenesin 10-100 mg/5 mL liquid 10 ml PO DAILY PRN (Reason: cough) meloxicam 15 mg tablet 15 mg PO DAILY PRN (Reason: pain) Qty: 10 0RF amoxicillin-pot clavulanate 875-125 mg tablet 1 tab PO Q12H Qty: 20 0RF Instructions: Acute Headache (ED), Acute Nausea and Vomiting (ED) Additional Instructions: Follow-up with the neurologist and psychiatrist. Stand Alone Forms: Portal Instructions Referrals: Lamont Blair MD [Primary Care Provider] - 1 week Discharge Date/Time: 09/28/22 19:20
[2022-09-28] MEDS: PROMETHAZINE HCL 25 MG/ML VIAL 12.5 MG IV (16:54)
[2022-09-28] MEDS: ORPHENADRINE 60 MG/ 2 ML VIAL IV (16:54)
[2022-09-28] MEDS: 0.9 % SODIUM CHLORIDE 1,000 ML 1000 ML IV (16:55)
[2022-09-28] MEDS: KETOROLAC TROMETHAMINE 30 MG/ML VIAL IVP (16:55)
[2022-09-28] MEDS: ONDANSETRON PF 4 MG/2 ML VIAL IV (16:55)
[2022-09-28 17:37] VITALS: PULSE 78
[2022-09-28 17:40] VITALS: PULSE 84; RESP 19; O2SAT 100
--- NOTE | 2022-09-28 17:53 | ECG_ITS ---
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
[2022-09-28 18:10] VITALS: PULSE 84; RESP 15; O2SAT 97
[2022-09-28 18:21] VITALS: BP 131/75; PULSE 75; RESP 16; O2SAT 99
[2022-09-28] MEDS: DEXAMETHASONE SODIUM PHOSPHATE 10 MG/ML VIAL IV (18:22)
[2022-09-28] MEDS: DIPHENHYDRAMINE HCL 50 MG/ML (1ML) VIAL IV (18:22)
[2022-09-28 18:27] VITALS: O2SAT 100
== END 2022-09-28 19:20 | disposition home or self-care (01) ==
PROVIDERS: Emergency Provider Emergency Medicine; PCP Family Medicine
DX: R51.9 Headache, unspecified (principal); Z79.899 Other long term (current) drug therapy
CPT/HCPCS: 93005; 96374; 96375; 99284; J1100

== ENCOUNTER 2022-10-12 18:17 | Emergency (ER) | payer OTHER, SELFPAY ==
[2022-10-12 18:25] VITALS: BP 154/92; PULSE 84; RESP 16; TEMP 37.3; O2SAT 98; BMI 45.2
[2022-10-12 19:51] VITALS: BP 151/83; PULSE 86; RESP 14; O2SAT 94
--- NOTE | 2022-10-12 20:22 | ED.GENADUL1 ---
HPI - General Adult General Chief complaint: Headache Stated complaint: Allergic Reaction Time Seen by Provider: 10/12/22 18:44 Source: patient Mode of arrival: walk-in Limitations: no limitations History of Present Illness HPI narrative: history of migraines for many years. States usually migraines 1/2 of the month. States she was seen at [facility] earlier today for Botox injections for her migraines. States at the time of the injections she had 4/10 migraine. Was informed her migraines may worsen after the Botox injections. When she returned home her headaches increased. She states she had a fever also. Called [facility] and they advised her to take Benadry and zofran and rest. She called again because of the headache and they advised her to go to the ER. She arrives here with a headache. Has low grade fever 99. no localized weakness of her extremities. Does have nausea and vomiting and photophobia Related Data Home Medications Medication Instructions Recorded Confirmed albuterol sulfate 0.63 mg/3 mL 90 mg inhalation Q4H PRN wheezing 07/20/22 08/08/22 solution for nebulization baclofen 10 mg tablet 10 mg PO Q8H 07/20/22 08/08/22 budesonide-formoterol HFA 160 2 inh inhalation BID 07/20/22 08/08/22 mcg-4.5 mcg/actuation aerosol inhaler (Symbicort) diazepam 10 mg tablet 10 mg PO BID 07/20/22 08/08/22 epinephrine 0.3 mg/0.3 mL 0.3 mg IM Q10M PRN anaphylaxis 07/20/22 08/08/22 injection, auto-injector lamotrigine 150 mg tablet 150 mg PO .qhs 07/20/22 08/08/22 (Lamictal) lamotrigine 25 mg tablet (Lamictal) 25 mg PO QDAY 07/20/22 08/08/22 lithium carbonate 150 mg capsule 150 mg PO QDAY 07/20/22 08/08/22 lithium carbonate 300 mg tablet 300 mg PO .qhs 07/20/22 08/08/22 montelukast 10 mg tablet 10 mg PO DAILY PRN allergies 07/20/22 08/08/22 trazodone 100 mg PO .qhs 07/20/22 08/08/22 codeine 10 mg-guaifenesin 100 mg/5 10 ml PO DAILY PRN cough 08/08/22 08/08/22 mL oral liquid Previous Rx's Medication Instructions Recorded amoxicillin 875 mg-potassium 1 tab PO Q12H #20 tabs 07/30/22 clavulanate 125 mg tablet meloxicam 15 mg tablet 15 mg PO DAILY PRN pain #10 tabs 08/08/22 promethazine 25 mg rectal 25 mg ME Q6H PRN nausea and 09/28/22 suppository vomiting #6 ea promethazine 25 mg tablet 25 mg PO BID PRN nausea and 09/28/22 vomiting #7 tabs Allergies Allergy/AdvReac Type Severity Reaction Status Date / Time dihydroergotamine Allergy Severe Rash Verified 08/08/22 19:44 azithromycin [From Zithromax] AdvReac Intermediate Hives Verified 08/08/22 19:44 bee venom protein (honey bee) AdvReac Intermediate Hives Verified 08/08/22 19:44 metoclopramide [From Reglan] AdvReac Intermediate panic Verified 08/08/22 19:44 adhesive tape AdvReac Mild Rash Verified 08/08/22 19:44 cephalexin [From Keflex] AdvReac Mild Hives Verified 08/08/22 19:44 dextromethorphan AdvReac Mild Unknown Verified 08/08/22 19:44 [From [place] DM] pyrilamine [From [place] [facility]] AdvReac Mild Unknown Verified 08/08/22 19:44 propranolol AdvReac Hives Verified 08/08/22 19:44 Review of Systems ROS Status of ROS 10 or more systems reviewed and unremarkable except as noted in history and below [facility] Medical History (Updated 10/13/22 @ 00:22 by Denzel Juarez MD) Surgical History (Updated 07/20/22 @ 18:18 by Irlanda Weiss RN) Family History (Updated 07/20/22 @ 17:40 by Irlanda Weiss RN) Other Acid reflux Acute renal disease Afib Chromosomal disorder Delayed developmental milestones Diabetes Family history of hypertension High cholesterol Neuro-irritability due to autonomic dysfunction Primary ciliary dyskinesia due to transposition of ciliary microtubules Pulmonary aspiration Tachycardia Social History (Updated 07/20/22 @ 18:20 by Irlanda Weiss RN) Within the past year, how often did you have a drink containing alcohol: never Score interpretation: A score less than 3 is consistent with normal alcohol consumption. 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 level of school completed/degree received: high school graduate Exam Constitutional Vital Signs, click to edit/add: Last Vital Signs Temp 98.1 F 10/12/22 23:19 Pulse 86 10/12/22 19:51 Resp 14 10/12/22 19:51 BP 151/83 H 10/12/22 19:51 Pulse Ox 94 L 10/12/22 19:51 O2 Del Method Room Air 10/12/22 18:25 Common normals: no apparent distress, oriented x3, alert and well nourished Eye Common normals: PERRL, EOMs intact bilaterally, conjunctivae normal and no scleral icterus Neck & C-Spine Common normals: full ROM Respiratory Common normals: normal respiratory effort, no retractions, no use of accessory muscles and clear to auscultation bilaterally Cardio Common normals: regular rate, regular rhythm, S1 normal heart sound and S2 normal heart sound GI Common normals: Normal to inspection, nondistended, normoactive bowel sounds present, soft to palpation and non-tender Extremity Common normals: normal to inspection Neuro Common normals: oriented x3, CN's II-XII intact bilaterally, moves all extremities, no focal motor deficits and no sensory deficits noted Psych Appearance: grossly normal Course Vital Signs Vital signs: Vital Signs Temperature 99.2 F 10/12/22 18:25 Pulse Rate 84 10/12/22 18:25 Respiratory Rate 16 10/12/22 18:25 Blood Pressure 154/92 H 10/12/22 18:25 Pulse Oximetry 98 10/12/22 18:25 Oxygen Delivery Method Room Air 10/12/22 18:25 Temperature 98.1 F 10/12/22 23:19 Pulse Rate 86 10/12/22 19:51 Respiratory Rate 14 10/12/22 19:51 Blood Pressure 151/83 H 10/12/22 19:51 Pulse Oximetry 94 L 10/12/22 19:51 Oxygen Delivery Method Room Air 10/12/22 18:25 Medical Decision Making MDM Narrative Medical decision making narrative: patient presents with chronic migraines. has botox injections at [facility] and was told she would likely have a rebound migraine after the procedure. States she had fever at home but temperature here was 99. she also complained that her face felt itchy after Botox injections. Face without any evidence of a rash. Treated with Solumedrol, Benadry and phenergan. Migraine improved some. She is now stating the treatment is wearing off and that in the past she has required benadryl at least 2 times and Toradol as well. Her labs are normal including normal WBC 6.5. will plan 2nd Benadryl injection and toradol and reassess . Patient is feeling better. Still has headache but feels it is improved enough that she can now go home and rest in her own bed. patient discharged but advised close follow up given her atypical presentation. Should follow up with her doctor tomorrow or with [facility] Lab Data Labs: Lab Results 10/12/22 Range/Units 21:00 WBC 6.5 (4.0-11.0) 10^3/uL RBC 4.21 (4.20-5.40) 10^6/uL Hgb 12.4 (12.0-16.0) g/dL Hct 36.7 (36.0-48.0) % MCV 87.2 (81.0-99.0) fL MCH 29.5 (26.7-34.0) pg MCHC 33.8 (29.9-35.2) g/dL RDW 13.1 (11.0-15.0) % Plt Count 246 (150-450) 10^3/uL MPV 9.6 (9.5-13.5) fL Neut % (Auto) 64.4 (43.0-75.0) % Lymph % (Auto) 26.0 (20.5-60.0) % [place] % (Auto) 5.9 (1.7-12.0) % Eos % (Auto) 2.9 (0.9-7.0) % Baso % (Auto) 0.3 (0.2-2.0) % Neut # (Auto) 4.2 (1.4-6.5) 10^3/uL Lymph # (Auto) 1.7 (1.2-3.8) 10^3/uL [place] # (Auto) 0.4 (0.3-0.8) 10^3/uL Eos # (Auto) 0.2 (0.0-0.7) 10^3/uL Baso # (Auto) 0.0 (0.0-0.1) 10^3/uL Abs Immat Gran (auto) 0.03 (0.00-0.03) 10^3/uL Imm/Tot Granulo (auto) 0.5 (0.0-0.5) % Sodium 136 (136-145) mmol/L Potassium 3.4 L (3.5-5.1) mmol/L Chloride 105 (98-107) mmol/L Carbon Dioxide 26.0 (21.0-32.0) mmol/L Anion Gap 8.4 BUN 10.0 (7.0-18.0) mg/dL Creatinine 0.76 (0.55-1.02) mg/dL Est GFR ( Amer) >60 (>=60) Est GFR (Non-Af Amer) >60 (>=60) BUN/Creatinine Ratio 13.2 Glucose 90 (74-106) mg/dL Calcium 8.6 (8.5-10.1) mg/dL Total Bilirubin 0.2 (0.2-1.0) mg/dL AST 9 L (15-37) U/L ALT 14 (14-59) U/L Alkaline Phosphatase 73 (46-116) U/L Total Protein 6.8 (6.4-8.2) g/dL Albumin 3.6 (3.4-5.0) g/dL Globulin 3.2 g/dL Albumin/Globulin Ratio 1.1 Discharge Plan Discharge Chief Complaint: Headache Clinical Impression: Migraine Patient Disposition: Home, Self-Care Prescriptions / Home Meds: No Action albuterol sulfate 0.63 mg/3 mL solution for nebulization 90 mg inhalation Q4H PRN (Reason: wheezing) baclofen 10 mg tablet 10 mg PO Q8H lamotrigine [Lamictal] 150 mg tablet 150 mg PO .qhs montelukast 10 mg tablet 10 mg PO DAILY PRN (Reason: allergies) budesonide-formoterol [Symbicort] 160-4.5 mcg/actuation HFA aerosol inhaler 2 inh inhalation BID lamotrigine [Lamictal] 25 mg tablet 25 mg PO QDAY diazepam 10 mg tablet 10 mg PO BID epinephrine 0.3 mg/0.3 mL auto-injector 0.3 mg IM Q10M PRN (Reason: anaphylaxis) Rx Instructions: for 2 doses lithium carbonate 150 mg capsule 150 mg PO QDAY lithium carbonate 300 mg tablet 300 mg PO .qhs trazodone 100 mg PO .qhs codeine-guaifenesin 10-100 mg/5 mL liquid 10 ml PO DAILY PRN (Reason: cough) meloxicam 15 mg tablet 15 mg PO DAILY PRN (Reason: pain) Qty: 10 0RF promethazine 25 mg suppository 25 mg ME Q6H PRN (Reason: nausea and vomiting) Qty: 6 0RF promethazine 25 mg tablet 25 mg PO BID PRN (Reason: nausea and vomiting) Qty: 7 0RF amoxicillin-pot clavulanate 875-125 mg tablet 1 tab PO Q12H Qty: 20 0RF Instructions: Migraine Headache (ED) Additional Instructions: follow up with your doctor tomorrow for recheck or follow up with [facility] tomorrow Stand Alone Forms: Portal Instructions Referrals: Lamont Blair MD [Primary Care Provider] - 1 week
--- NOTE | 2022-10-12 20:33 | CT_ITS ---
The [address] [address] Patient Name: MARGARET PLATT MRN: [id number] date: 1995 Sex: F Assigned Patient Location: ER Current Patient Location: ER Accession/Order Number: [id number] Exam Date: 10/12/2022 21:20 Report Date: 10/12/2022 21:45 At the request of: MANJINDER DEAL Procedure: CT head/brain wo con EXAM: CT head/brain wo con HISTORY: headache COMPARISON: None. TECHNIQUE: Axial CT scans through the head were obtained without IV contrast administration. Dose reduction techniques were achieved by using: automated exposure control and/or adjustment of mA and /or kV according to patient size and/or use of iterative reconstruction technique. FINDINGS: There is no acute intracranial hemorrhage or abnormal extra-axial fluid collection. No mass effect or midline shift is seen. There is no evidence of large acute territorial infarction. There is no hydrocephalus. To the limit of CT, the posterior fossa appears unremarkable. The calvaria and extra cranial soft tissues are unremarkable. The visualized orbits show no abnormal mass. The visualized paranasal sinuses show no air-fluid level. There is a small retention cyst in the right sphenoid sinus. Mastoid air cells are clear. CT/CT head/brain wo con IMPRESSION: No acute intracranial process. Electronically authenticated by: SINDY KING Date: 10/12/2022 21:45
[2022-10-12] MEDS: METHYLPREDNISOLONE SOD SUCC PF 125 MG/2 ML VIAL IVP (21:11)
[2022-10-12] MEDS: DIPHENHYDRAMINE HCL 50 MG/ML (1ML) VIAL IV ×2 (21:11→23:47)
[2022-10-12] MEDS: MAGNESIUM SULFATE IN WATER 50 ML 1.25 GM IV (21:12)
[2022-10-12 21:22] LABS: Basophils Percent Auto 0.3 % (0.2-2.0); Eosinophils Absolute Auto 0.2 10^3/uL (0.0-0.7); Eosinophils Percent Auto 2.9 % (0.9-7.0); Hematocrit 36.7 % (36.0-48.0); Hemoglobin 12.4 g/dL (12.0-16.0); Immature Granulocytes Abs Auto 0.03 10^3/uL (0.00-0.03); Immature Granulocytes Pct Auto 0.5 % (0.0-0.5); Lymphocytes Absolute Auto 1.7 10^3/uL (1.2-3.8); Mean Corpuscular HGB Conc 33.8 g/dL (29.9-35.2); Mean Corpuscular Hemoglobin 29.5 pg (26.7-34.0); Mean Corpuscular Volume 87.2 fL (81.0-99.0); Mean Platelet Volume 9.6 fL (9.5-13.5); Monocytes Absolute Auto 0.4 10^3/uL (0.3-0.8); Monocytes Percent Auto 5.9 % (1.7-12.0); Neutrophils Absolute Auto 4.2 10^3/uL (1.4-6.5); Neutrophils Percent Auto 64.4 % (43.0-75.0); Platelet Count 246 10^3/uL (150-450); Red Blood Count 4.21 10^6/uL (4.20-5.40); Red Cell Distribution Width 13.1 % (11.0-15.0); White Blood Count 6.5 10^3/uL (4.0-11.0)
[2022-10-12 21:36] LABS: Alanine Aminotransferase 14 U/L (14-59); Albumin Globulin Ratio 1.1; Albumin Level 3.6 g/dL (3.4-5.0); Alkaline Phosphatase 73 U/L (46-116); Anion Gap 8.4; Aspartate Amino Transferase 9 U/L (15-37); BUN Creatinine Ratio 13.2; Bilirubin Total 0.2 mg/dL (0.2-1.0); Calcium 8.6 mg/dL (8.5-10.1); Chloride 105 mmol/L (98-107); Estimated GFR (African America >60 (>=60); Estimated GFR (Non-African Ame >60 (>=60); Globulin 3.2 g/dL; Glucose 90 mg/dL (74-106); Potassium 3.4 mmol/L (3.5-5.1); Sodium 136 mmol/L (136-145); Total Protein 6.8 g/dL (6.4-8.2)
[2022-10-12] MEDS: PROMETHAZINE HCL 25 MG/ML VIAL 12.5 MG IV (21:42)
[2022-10-12 23:19] VITALS: TEMP 36.7
[2022-10-12] MEDS: KETOROLAC TROMETHAMINE 30 MG/ML VIAL IVP (23:47)
[2022-10-13 00:27] VITALS: PULSE 72; RESP 14; O2SAT 98
== END 2022-10-13 00:29 | disposition home or self-care (01) ==
PROVIDERS: Emergency Provider Internal Medicine; PCP Family Medicine
DX: G43.909 Migraine, unspecified, not intractable, without status migrainosus (principal); Z79.899 Other long term (current) drug therapy
CPT/HCPCS: 36415; 70450; 80053; 85025; 96365; 96375; 96376; 99285; J2930

== ENCOUNTER 2022-11-08 08:46 | Emergency (ER) | payer OTHER, SELFPAY ==
[2022-11-08 08:50] VITALS: BP 118/70; PULSE 86; RESP 16; TEMP 36.6; O2SAT 96; BMI 43.5
[2022-11-08] MEDS: DIPHENHYDRAMINE HCL 50 MG/ML (1ML) VIAL IM (09:10)
[2022-11-08] MEDS: METHYLPREDNISOLONE SOD SUCC PF 125 MG/2 ML VIAL IM (09:10)
[2022-11-08] MEDS: PROMETHAZINE HCL 25 MG/ML VIAL IM (09:10)
--- NOTE | 2022-11-08 09:16 | ED.GENADUL1 ---
HPI - General Adult General Chief complaint: Headache Stated complaint: MIGRAINE Time Seen by Provider: 11/08/22 08:54 Source: patient Mode of arrival: walk-in Limitations: no limitations History of Present Illness HPI narrative: [age] female presents for a migraine headache. It's above both eyes. No trauma fever or stiff neck and she's had this for about three days. She's been taking Zomig at home as well as some zltu-ovz-zrcvhrx medications including ibuprofen. She gets frequent migraine headaches and gets Botox injections in [place]. No localized weakness. The headache is continuous. Related Data Home Medications Medication Instructions Recorded Confirmed albuterol sulfate 0.63 mg/3 mL 90 mg inhalation Q4H PRN wheezing 07/20/22 08/08/22 solution for nebulization baclofen 10 mg tablet 10 mg PO Q8H 07/20/22 08/08/22 budesonide-formoterol HFA 160 2 inh inhalation BID 07/20/22 08/08/22 mcg-4.5 mcg/actuation aerosol inhaler (Symbicort) diazepam 10 mg tablet 10 mg PO BID 07/20/22 08/08/22 epinephrine 0.3 mg/0.3 mL 0.3 mg IM Q10M PRN anaphylaxis 07/20/22 08/08/22 injection, auto-injector lamotrigine 150 mg tablet 150 mg PO .qhs 07/20/22 08/08/22 (Lamictal) lamotrigine 25 mg tablet (Lamictal) 25 mg PO QDAY 07/20/22 08/08/22 lithium carbonate 150 mg capsule 150 mg PO QDAY 07/20/22 08/08/22 lithium carbonate 300 mg tablet 300 mg PO .qhs 07/20/22 08/08/22 montelukast 10 mg tablet 10 mg PO DAILY PRN allergies 07/20/22 08/08/22 trazodone 100 mg PO .qhs 07/20/22 08/08/22 Previous Rx's Medication Instructions Recorded meloxicam 15 mg tablet 15 mg PO DAILY PRN pain #10 tabs 08/08/22 promethazine 25 mg rectal 25 mg MO Q6H PRN nausea and 09/28/22 suppository vomiting #6 ea promethazine 25 mg tablet 25 mg PO BID PRN nausea and 09/28/22 vomiting #7 tabs mvcffulvtq-uyuuqfctyupyn-gwugtypw 1 cap PO Q6H PRN pain #20 caps 11/08/22 50 mg-300 mg-40 mg capsule (Fioricet) loratadine 5 mg-pseudoephedrine ER 1 tab PO Q12H PRN nasal congestion 11/08/22 120 mg tablet,extended #20 tabs release,12hr (Claritin-D 12 Hour) Allergies Allergy/AdvReac Type Severity Reaction Status Date / Time dihydroergotamine Allergy Severe Rash Verified 08/08/22 19:44 azithromycin [From Zithromax] AdvReac Intermediate Hives Verified 08/08/22 19:44 bee venom protein (honey bee) AdvReac Intermediate Hives Verified 08/08/22 19:44 metoclopramide [From Reglan] AdvReac Intermediate panic Verified 08/08/22 19:44 adhesive tape AdvReac Mild Rash Verified 08/08/22 19:44 cephalexin [From Keflex] AdvReac Mild Hives Verified 08/08/22 19:44 dextromethorphan AdvReac Mild Unknown Verified 08/08/22 19:44 [From [place] DM] pyrilamine [From [place] DM] AdvReac Mild Unknown Verified 08/08/22 19:44 propranolol AdvReac Hives Verified 08/08/22 19:44 Review of Systems ROS Narrative A ten point review of systems is negative except as noted above. [facility] Medical History (Updated 11/08/22 @ 11:25 by Wild Kendall MD) Surgical History (Updated 07/20/22 @ 18:18 by Irlanda Weiss RN) Family History (Updated 07/20/22 @ 17:40 by Irlanda Weiss RN) Other Acid reflux Acute renal disease Afib Chromosomal disorder Delayed developmental milestones Diabetes Family history of hypertension High cholesterol Neuro-irritability due to autonomic dysfunction Primary ciliary dyskinesia due to transposition of ciliary microtubules Pulmonary aspiration Tachycardia Social History (Updated 07/20/22 @ 18:20 by Irlanda Weiss RN) Within the past year, how often did you have a drink containing alcohol: never Score interpretation: A score less than 3 is consistent with normal alcohol consumption. 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 General: The patient appears well and in no apparent distress. Patient is resting comfortably on cart. Skin: Warm, dry, no pallor noted. There is no rash noted. Head: Normocephalic, atraumatic, no nuchal rigidity Eye: Normal conjunctiva, no drainage, EOMI. PERRL Ears, Nose, Mouth, and Throat: oral mucosa is moist. Nares patent. Cardiovascular: Regular Rate and Rhythm Respiratory: Patient is in no distress, no accessory muscle use, lungs are clear to auscultation, no wheezing, rales or rhonchi Back: non-tender GI: soft and nontender Musculoskeletal: The patient has no evidence of calf tenderness, no pitting edema, symmetrical pulses noted bilaterally Neurological: A&O x4, normal speech; upper and lower extremity strength five out of five and symmetric Psychiatric: Cooperative Constitutional Vital Signs, click to edit/add: Last Vital Signs Temp 97.8 F 11/08/22 08:50 Pulse 75 11/08/22 10:14 Resp 16 11/08/22 10:14 BP 126/86 11/08/22 10:14 Pulse Ox 98 11/08/22 10:14 O2 Del Method Room Air 11/08/22 08:50 Course Vital Signs Vital signs: Vital Signs Temperature 97.8 F 11/08/22 08:50 Pulse Rate 86 11/08/22 08:50 Respiratory Rate 16 11/08/22 08:50 Blood Pressure 118/70 11/08/22 08:50 Pulse Oximetry 96 11/08/22 08:50 Oxygen Delivery Method Room Air 11/08/22 08:50 Temperature 97.8 F 11/08/22 08:50 Pulse Rate 75 11/08/22 10:14 Respiratory Rate 16 11/08/22 10:14 Blood Pressure 126/86 11/08/22 10:14 Pulse Oximetry 98 11/08/22 10:14 Oxygen Delivery Method Room Air 11/08/22 08:50 Medical Decision Making [facility] Narrative Medical decision making narrative: the patient was given IM Phenergan, IM Benadryl, IM Solu-Medrol, and then IM Toradol and feels improved and is able to be discharged home. She'll be treated symptomatically. Treatment diagnosis and follow-up were discussed with the patient. I've no clinical suspicion of intracranial hemorrhage. Differential Diagnosis Differential Diagnosis: migraine headache, tension headache, intracranial hemorrhage, viral uri Discharge Plan Discharge Chief Complaint: Headache Clinical Impression: Migraine Patient Disposition: Home, Self-Care Time of Disposition Decision: 11:20 Condition: Good Mode of Transportation: Private Vehicle Prescriptions / Home Meds: New finrmhezcz-zfbixrswbzzez-varw [Fioricet] 50-300-40 mg capsule 1 cap PO Q6H PRN (Reason: pain) Qty: 20 0RF Claritin-D 12 Hour 5-120 mg tablet extended release 12 hr 1 tab PO Q12H PRN (Reason: nasal congestion) Qty: 20 0RF No Action albuterol sulfate 0.63 mg/3 mL solution for nebulization 90 mg inhalation Q4H PRN (Reason: wheezing) baclofen 10 mg tablet 10 mg PO Q8H lamotrigine [Lamictal] 150 mg tablet 150 mg PO .qhs montelukast 10 mg tablet 10 mg PO DAILY PRN (Reason: allergies) budesonide-formoterol [Symbicort] 160-4.5 mcg/actuation HFA aerosol inhaler 2 inh inhalation BID lamotrigine [Lamictal] 25 mg tablet 25 mg PO QDAY diazepam 10 mg tablet 10 mg PO BID epinephrine 0.3 mg/0.3 mL auto-injector 0.3 mg IM Q10M PRN (Reason: anaphylaxis) Rx Instructions: for 2 doses lithium carbonate 150 mg capsule 150 mg PO QDAY lithium carbonate 300 mg tablet 300 mg PO .qhs trazodone 100 mg PO .qhs meloxicam 15 mg tablet 15 mg PO DAILY PRN (Reason: pain) Qty: 10 0RF promethazine 25 mg suppository 25 mg MO Q6H PRN (Reason: nausea and vomiting) Qty: 6 0RF promethazine 25 mg tablet 25 mg PO BID PRN (Reason: nausea and vomiting) Qty: 7 0RF Instructions: Migraine Headache (ED) Stand Alone Forms: Portal Instructions Referrals: Lamont Blair MD [Primary Care Provider] - 1 week
[2022-11-08] MEDS: KETOROLAC TROMETHAMINE 60 MG/2 ML VIAL IM (10:09)
[2022-11-08 10:14] VITALS: BP 126/86; PULSE 75; RESP 16; O2SAT 98
== END 2022-11-08 11:32 | disposition home or self-care (01) ==
PROVIDERS: Emergency Provider Emergency Medicine; PCP Family Medicine
DX: G43.909 Migraine, unspecified, not intractable, without status migrainosus (principal)
CPT/HCPCS: 96372; 99284; J2930

== ENCOUNTER 2022-11-24 13:16 | Emergency (ER) | payer OTHER, SELFPAY ==
[2022-11-24 13:24] VITALS: BP 109/67; PULSE 90; RESP 20; TEMP 36.8; O2SAT 96; BMI 45.3
--- NOTE | 2022-11-24 14:00 | US_ITS ---
[address] [address] Patient Name: MARGARET PLATT MRN: [id number] date: 1995 Sex: F Assigned Patient Location: ER Current Patient Location: ER Accession/Order Number: [id number] Exam Date: 11/24/2022 14:38 Report Date: 11/24/2022 15:34 At the request of: PATRICIA WALSH Procedure: US pelvis transvaginal EXAMINATION: US pelvis transvaginal HISTORY: pelvic pain COMPARISON: No relevant comparison available. FINDINGS: The uterus is surgically absent The ovaries are not visualized The vaginal canal and cervix appear normal No ascites US/US pelvis transvaginal IMPRESSION: Nonvisualization of the uterus and ovaries No acute abnormality observed Electronically authenticated by: NUZHAT BAUMANN Date: 11/24/2022 15:34
--- NOTE | 2022-11-24 14:02 | ED_ITS ---
HPI - Abdominal Pain General Chief Complaint: Abdominal Pain Stated Complaint: ABDOMINAL PAIN Time Seen by Provider: 11/24/22 13:48 Source: patient Mode of arrival: walk-in Limitations: no limitations History of Present Illness HPI narrative: 27 year old female presents to the ED for low abd/pelvic pain. Onset was 11/20/22. Reports N/V. States she saw her RESEARCH ASSOCIATE yesterday and a pelvic ultrasound was ordered. She has not completed the ultrasound. She had a hysterectomy last year. Reports her RESEARCH ASSOCIATE was concerned about ovarian cysts. Denies fever, chills, injury, diarrhea, dysuria, vaginal bleeding. She was plac ed on flagyl yesterday for her vaginal discharge with odor. Rates her pain 9/10 at this time. Related Data Home Medications Medication Instructions Recorded Confirmed albuterol sulfate 0.63 mg/3 mL 90 mg inhalation Q4H PRN wheezing 07/20/22 08/08/22 solution for nebulization baclofen 10 mg tablet 10 mg PO Q8H 07/20/22 08/08/22 budesonide-formoterol HFA 160 2 inh inhalation BID 07/20/22 08/08/22 mcg-4.5 mcg/actuation aerosol inhaler (Symbicort) diazepam 10 mg tablet 10 mg PO BID 07/20/22 08/08/22 epinephrine 0.3 mg/0.3 mL 0.3 mg IM Q10M PRN anaphylaxis 07/20/22 08/08/22 injection, auto-injector lamotrigine 150 mg tablet 150 mg PO .qhs 07/20/22 08/08/22 (Lamictal) lamotrigine 25 mg tablet (Lamictal) 25 mg PO QDAY 07/20/22 08/08/22 lithium carbonate 150 mg capsule 150 mg PO QDAY 07/20/22 08/08/22 lithium carbonate 300 mg tablet 300 mg PO .qhs 07/20/22 08/08/22 montelukast 10 mg tablet 10 mg PO DAILY PRN allergies 07/20/22 08/08/22 trazodone 100 mg PO .qhs 07/20/22 08/08/22 Previous Rx's Medication Instructions Recorded meloxicam 15 mg tablet 15 mg PO DAILY PRN pain #10 tabs 08/08/22 promethazine 25 mg rectal 25 mg GA Q6H PRN nausea and 09/28/22 suppository vomiting #6 ea promethazine 25 mg tablet 25 mg PO BID PRN nausea and 09/28/22 vomiting #7 tabs ctbeotefza-upjqrykfzwmgk-puvfvjbi 1 cap PO Q6H PRN pain #20 caps 11/08/22 50 mg-300 mg-40 mg capsule (Fioricet) loratadine 5 mg-pseudoephedrine ER 1 tab PO Q12H PRN nasal congestion 11/08/22 120 mg tablet,extended #20 tabs release,12hr (Claritin-D 12 Hour) promethazine 25 mg tablet 25 mg PO TID PRN nausea and 11/24/22 vomiting #10 tabs Allergies Allergy/AdvReac Type Severity Reaction Status Date / Time dihydroergotamine Allergy Severe Rash Verified 08/08/22 19:44 azithromycin [From Zithromax] AdvReac Intermediate Hives Verified 08/08/22 19:44 bee venom protein (honey bee) AdvReac Intermediate Hives Verified 08/08/22 19:44 metoclopramide [From Reglan] AdvReac Intermediate panic Verified 08/08/22 19:44 adhesive tape AdvReac Mild Rash Verified 08/08/22 19:44 cephalexin [From Keflex] AdvReac Mild Hives Verified 08/08/22 19:44 dextromethorphan AdvReac Mild Unknown Verified 08/08/22 19:44 [From [place] DM] pyrilamine [From [place] DM] AdvReac Mild Unknown Verified 08/08/22 19:44 propranolol AdvReac Hives Verified 08/08/22 19:44 Review of Systems ROS Constitutional Denies: fever or chills Cardiovascular Denies: chest pain Respiratory Denies: shortness of breath Gastrointestinal Reports: abdominal pain, nausea and vomiting; Denies: diarrhea or constipation Genitourinary Reports: pelvic pain; Denies: painful urination, urinary frequency, urinary urgency, blood in urine or vaginal bleeding Musculoskeletal Denies: back pain or neck pain Integumentary/Breast Denies: rash Neurological Denies: headache [facility] Medical History (Updated 11/24/22 @ 16:19 by Tania Elizabeth) Abscess of vagina ?N76.0 - Acute vaginitis (ICD-10) Acne ?L70.9 - Acne, unspecified (ICD-10) Anxiety ?F41.9 - Anxiety disorder, unspecified (ICD-10) Asthma ?J45.909 - Unspecified asthma, uncomplicated (ICD-10) Blood in urine ?R31.9 - Hematuria, unspecified (ICD-10) Brain mass ?G93.89 - Other specified disorders of brain (ICD-10) Bronchitis ?J40 - Bronchitis, not specified as acute or chronic (ICD-10) COVID-19 ?U07.1 - COVID-19 (ICD-10) Depression ?F32.A - Depression, unspecified (ICD-10) Dyspareunia Dysuria ?R30.0 - Dysuria (ICD-10) Fall ?W19.XXXA - Unspecified fall, initial encounter (ICD-10) GERD (gastroesophageal reflux disease) ?K21.9 - Gastro-esophageal reflux disease without esophagitis (ICD-10) Head injury ?S09.90XA - Unspecified injury of head, initial encounter (ICD-10) Kidney stones ?N20.0 - Calculus of kidney (ICD-10) Curt curt ?B74.3 - Loiasis (ICD-10) Low back pain ?M54.50 - Low back pain, unspecified (ICD-10) Migraine ?G43.909 - Migraine, unspecified, not intractable, without status migrainosus (ICD-10) Mitral valve prolapse ?I34.1 - Nonrheumatic mitral (valve) prolapse (ICD-10) Nausea ?R11.0 - Nausea (ICD-10) Neck pain ?M54.2 - Cervicalgia (ICD-10) PCOS (polycystic ovarian syndrome) ?E28.2 - Polycystic ovarian syndrome (ICD-10) Pneumonia ?J18.9 - Pneumonia, unspecified organism (ICD-10) Seizure ?R56.9 - Unspecified convulsions (ICD-10) Stress incontinence ?N39.3 - Stress incontinence (female) (male) (ICD-10) Vaginal delivery ?O80 - Encounter for full-term uncomplicated delivery (ICD-10) Surgical History (Updated 07/20/22 @ 18:18 by Irlanda Weiss RN) H/O: ?Z98.891 - History of uterine scar from previous surgery (ICD-10) History of appendectomy ?Z90.49 - Acquired absence of other specified parts of digestive tract (ICD- 10) Hx laparoscopic cholecystectomy ?Z90.49 - Acquired absence of other specified parts of digestive tract (ICD- 10) S/P RAVI-BSO ?Z90.710 - Acquired absence of both cervix and uterus (ICD-10) ?Z90.722 - Acquired absence of ovaries, bilateral (ICD-10) ?Z90.79 - Acquired absence of other genital organ(s) (ICD-10) Family History (Updated 07/20/22 @ 17:40 by Irlanda Weiss RN) Other Acid reflux Acute renal disease Afib Chromosomal disorder Delayed developmental milestones Diabetes Family history of hypertension High cholesterol Neuro-irritability due to autonomic dysfunction Primary ciliary dyskinesia due to transposition of ciliary microtubules Pulmonary aspiration Tachycardia Social History (Updated 07/20/22 @ 18:20 by Irlanda Weiss, PRATIBHA) Within the past year, how often did you have a drink containing alcohol: never Score interpretation: A score less than 3 is consistent with normal alcohol consumption. 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 level of school completed/degree received: high school graduate Exam Constitutional Vital Signs, click to edit/add: Last Vital Signs Temp 98.3 F 11/24/22 13:24 Pulse 90 11/24/22 13:24 Resp 20 11/24/22 13:24 BP 109/67 11/24/22 13:24 Pulse Ox 96 11/24/22 13:24 O2 Del Method Room Air 11/24/22 13:24 Common normals: oriented x3 General appearance: cooperative; not ill appearing [facility] Common normals: normocephalic Mouth: lip normal (MMM) Eye Common normals: no scleral icterus Neck & C-Spine Common normals: supple Respiratory Common normals: normal respiratory effort Effort & inspection: able to speak in complete sentences and symmetric chest movement Cardio Common normals: regular rate GI Common normals: soft to palpation and non-tender Palpation: no guarding and not rigid Extremity Common normals: normal capillary refill Course Vital Signs Vital signs: Vital Signs Temperature 98.3 F 11/24/22 13:24 Pulse Rate 90 11/24/22 13:24 Respiratory Rate 20 11/24/22 13:24 Blood Pressure 109/67 11/24/22 13:24 Pulse Oximetry 96 11/24/22 13:24 Oxygen Delivery Method Room Air 11/24/22 13:24 Temperature 98.3 F 11/24/22 13:24 Pulse Rate 90 11/24/22 13:24 Respiratory Rate 20 11/24/22 13:24 Blood Pressure 109/67 11/24/22 13:24 Pulse Oximetry 96 11/24/22 13:24 Oxygen Delivery Method Room Air 11/24/22 13:24 MDM - Abdominal Pain MDM Narrative Medical decision making narrative: Pelvic ultrasound showed no acute findings. The patient declined to provide a urine specimen. She was not actively vomiting here in the ED. She reported she has been taking Zofran at home. A prescription was provided for Phenergan. Follow up with pcp and RESEARCH ASSOCIATE for a recheck, further evaluation and treatment. Medical Records Attestation: I reviewed the patient's medical records. Lab Data Attestation: I reviewed the patient's lab results. Imaging Data US- pelvis: Radiologist's impression: Procedure: US pelvis transvaginal EXAMINATION: US pelvis transvaginal HISTORY: pelvic pain COMPARISON: No relevant comparison available. FINDINGS: The uterus is surgically absent The ovaries are not visualized The vaginal canal and cervix appear normal No ascites US/US pelvis transvaginal IMPRESSION: Nonvisualization of the uterus and ovaries No acute abnormality observed Electronically authenticated by: NUZHAT BAUMANN Date: 11/24/2022 15:34 Discharge Plan Discharge Chief Complaint: Abdominal Pain Clinical Impression: Pelvic pain, Nausea & vomiting Patient Disposition: Home, Self-Care Time of Disposition Decision: 16:15 Condition: Good Mode of Transportation: Private Vehicle Prescriptions / Home Meds: New promethazine 25 mg tablet 25 mg PO TID PRN (Reason: nausea and vomiting) Qty: 10 0RF No Action albuterol sulfate 0.63 mg/3 mL solution for nebulization 90 mg inhalation Q4H PRN (Reason: wheezing) baclofen 10 mg tablet 10 mg PO Q8H lamotrigine [Lamictal] 150 mg tablet 150 mg PO .qhs montelukast 10 mg tablet 10 mg PO DAILY PRN (Reason: allergies) budesonide-formoterol [Symbicort] 160-4.5 mcg/actuation HFA aerosol inhaler 2 inh inhalation BID lamotrigine [Lamictal] 25 mg tablet 25 mg PO QDAY diazepam 10 mg tablet 10 mg PO BID epinephrine 0.3 mg/0.3 mL auto-injector 0.3 mg IM Q10M PRN (Reason: anaphylaxis) Rx Instructions: for 2 doses lithium carbonate 150 mg capsule 150 mg PO QDAY lithium carbonate 300 mg tablet 300 mg PO .qhs trazodone 100 mg PO .qhs meloxicam 15 mg tablet 15 mg PO DAILY PRN (Reason: pain) Qty: 10 0RF promethazine 25 mg suppository 25 mg GA Q6H PRN (Reason: nausea and vomiting) Qty: 6 0RF promethazine 25 mg tablet 25 mg PO BID PRN (Reason: nausea and vomiting) Qty: 7 0RF [id number] [Fioricet] 50-300-40 mg capsule 1 cap PO Q6H PRN (Reason: pain) Qty: 20 0RF Claritin-D 12 Hour 5-120 mg tablet extended release 12 hr 1 tab PO Q12H PRN (Reason: nasal congestion) Qty: 20 0RF Instructions: Acute Nausea and Vomiting (ED), Pelvic Pain (ED) Additional Instructions: Follow up with your RESEARCH ASSOCIATE for a recheck, further evaluation and treatment. Return to the ER if your condition worsens. Stand Alone Forms: Portal Instructions Referrals: Lamont Blair MD [Primary Care Provider] - 1 week Discharge Date/Time: 11/24/22 16:25
[2022-11-24] MEDS: KETOROLAC TROMETHAMINE 60 MG/2 ML VIAL IM (14:14)
[2022-11-24] MEDS: PROMETHAZINE HCL 25 MG/ML VIAL IM (14:14)
[2022-11-24] MEDS: MORPHINE SULFATE 4 MG/ML VIAL IM (15:21)
== END 2022-11-24 16:25 | disposition home or self-care (01) ==
PROVIDERS: Emergency Provider Emergency Medicine; PCP Family Medicine
DX: R10.2 Pelvic and perineal pain (principal); R11.2 Nausea with vomiting, unspecified; F41.9 Anxiety disorder, unspecified; Z86.16 Personal history of COVID-19; K21.9 Gastro-esophageal reflux disease without esophagitis; F32.A Depression, unspecified; Z87.442 Personal history of urinary calculi; I34.1 Nonrheumatic mitral (valve) prolapse; E28.2 Polycystic ovarian syndrome; Z87.01 Personal history of pneumonia (recurrent); Z79.899 Other long term (current) drug therapy; Z98.891 History of uterine scar from previous surgery; Z90.49 Acquired absence of other specified parts of digestive tract; Z90.710 Acquired absence of both cervix and uterus; Z90.722 Acquired absence of ovaries, bilateral; Z90.79 Acquired absence of other genital organ(s)
CPT/HCPCS: 76830; 96372; 99284

== ENCOUNTER 2022-12-20 18:02 | Emergency (ER) | payer OTHER, SELFPAY ==
[2022-12-20 18:09] VITALS: BP 125/83; PULSE 99; RESP 20; TEMP 36.7; O2SAT 96; BMI 45.3
--- NOTE | 2022-12-20 18:19 | ECG_ITS ---
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
[2022-12-20 19:39] VITALS: PULSE 87
--- NOTE | 2022-12-20 19:45 | XR_ITS ---
The [address] [address] Patient Name: MARGARET PLATT MRN: [id number] date: 1995 Sex: F Assigned Patient Location: ER Current Patient Location: ER Accession/Order Number: [id number] Exam Date: 12/20/2022 19:50 Report Date: 12/20/2022 20:18 At the request of: KIMMY MARKER Procedure: XR chest 2V EXAM: XR chest 2V HISTORY: SOB and chest pain for 7 days. COMPARISON: 02/22/2019 TECHNIQUE: Upright PA and lateral chest x-ray FINDINGS: The heart is not enlarged and the vasculature is not distended. No acute infiltrate, effusion or pneumothorax is identified. The osseous structures are grossly intact. XR/XR chest 2V IMPRESSION: No acute infiltrate or evidence of cardiac decompensation. The overall appearance of the chest is essentially unchanged. Electronically authenticated by: POLLO DAIGLE Date: 12/20/2022 20:18
--- NOTE | 2022-12-20 19:46 | ED_ITS ---
HPI - SOB/Dyspnea General Chief Complaint: Upper Respiratory Infection Stated Complaint: CHST PAIN SHORTNESS OF BREATH Time Seen by Provider: 12/20/22 19:32 Source: patient Mode of arrival: walk-in Limitations: no limitations History of Present Illness HPI Narrative: 27-year-old female with a history of asthma presents for evaluation of generalized chest pain and cough with shortness of breath. She states that she has been sick for the past 8 days. She went to urgent care yesterday and had an x-ray performed. She states that she tested negative for COVID 19 and was told that she had pneumonia. She was given a prescription for prednisone and 2 antibiotics one that sounds like doxycycline and another one that she states started with a CL that was not available at the pharmacy. She has been using her albuterol without improvement. She has a dry cough. She does not have any lower extremity pain or swelling. She is not on control because she has had a hysterectomy and she does not smoke. She denies any dizziness or syncope. She states she has not been able to take cough medication containing dextromethorphan because she is ALLERGIC to it. Related Data Home Medications Medication Instructions Recorded Confirmed albuterol sulfate 0.63 mg/3 mL 90 mg inhalation Q4H PRN wheezing 07/20/22 08/08/22 solution for nebulization baclofen 10 mg tablet 10 mg PO Q8H 07/20/22 08/08/22 budesonide-formoterol HFA 160 2 inh inhalation BID 07/20/22 08/08/22 mcg-4.5 mcg/actuation aerosol inhaler (Symbicort) diazepam 10 mg tablet 10 mg PO BID 07/20/22 08/08/22 epinephrine 0.3 mg/0.3 mL 0.3 mg IM Q10M PRN anaphylaxis 07/20/22 08/08/22 injection, auto-injector lamotrigine 150 mg tablet 150 mg PO .qhs 07/20/22 08/08/22 (Lamictal) lamotrigine 25 mg tablet (Lamictal) 25 mg PO QDAY 07/20/22 08/08/22 lithium carbonate 150 mg capsule 150 mg PO QDAY 07/20/22 08/08/22 lithium carbonate 300 mg tablet 300 mg PO .qhs 07/20/22 08/08/22 montelukast 10 mg tablet 10 mg PO DAILY PRN allergies 07/20/22 08/08/22 trazodone 100 mg PO .qhs 07/20/22 08/08/22 Previous Rx's Medication Instructions Recorded meloxicam 15 mg tablet 15 mg PO DAILY PRN pain #10 tabs 08/08/22 promethazine 25 mg rectal 25 mg NV Q6H PRN nausea and 09/28/22 suppository vomiting #6 ea promethazine 25 mg tablet 25 mg PO BID PRN nausea and 09/28/22 vomiting #7 tabs [id number]-zteocxiknmjcv-jjskakuf 1 cap PO Q6H PRN pain #20 caps 11/08/22 50 mg-300 mg-40 mg capsule (Fioricet) loratadine 5 mg-pseudoephedrine ER 1 tab PO Q12H PRN nasal congestion 11/08/22 120 mg tablet,extended #20 tabs release,12hr (Claritin-D 12 Hour) promethazine 25 mg tablet 25 mg PO TID PRN nausea and 11/24/22 vomiting #10 tabs Allergies Allergy/AdvReac Type Severity Reaction Status Date / Time dihydroergotamine Allergy Severe Rash Verified 08/08/22 19:44 azithromycin [From Zithromax] AdvReac Intermediate Hives Verified 08/08/22 19:44 bee venom protein (honey bee) AdvReac Intermediate Hives Verified 08/08/22 19:44 metoclopramide [From Reglan] AdvReac Intermediate panic Verified 08/08/22 19:44 adhesive tape AdvReac Mild Rash Verified 08/08/22 19:44 cephalexin [From Keflex] AdvReac Mild Hives Verified 08/08/22 19:44 dextromethorphan AdvReac Mild Unknown Verified 08/08/22 19:44 [From [place] DM] pyrilamine [From [place] [facility]] AdvReac Mild Unknown Verified 08/08/22 19:44 propranolol AdvReac Hives Verified 08/08/22 19:44 Review of Systems ROS Status of ROS 10 or more systems reviewed and unremarkable except as noted in history and below [facility] Medical History (Updated 12/20/22 @ 20:47 by Dinorah Driver MD) Abscess of vagina ?N76.0 - Acute vaginitis (ICD-10) Acne ?L70.9 - Acne, unspecified (ICD-10) Anxiety ?F41.9 - Anxiety disorder, unspecified (ICD-10) Asthma ?J45.909 - Unspecified asthma, uncomplicated (ICD-10) Blood in urine ?R31.9 - Hematuria, unspecified (ICD-10) Brain mass ?G93.89 - Other specified disorders of brain (ICD-10) Bronchitis ?J40 - Bronchitis, not specified as acute or chronic (ICD-10) COVID-19 ?U07.1 - COVID-19 (ICD-10) Depression ?F32.A - Depression, unspecified (ICD-10) Dyspareunia Dysuria ?R30.0 - Dysuria (ICD-10) Fall ?W19.XXXA - Unspecified fall, initial encounter (ICD-10) GERD (gastroesophageal reflux disease) ?K21.9 - Gastro-esophageal reflux disease without esophagitis (ICD-10) Head injury ?S09.90XA - Unspecified injury of head, initial encounter (ICD-10) Kidney stones ?N20.0 - Calculus of kidney (ICD-10) Curt curt ?B74.3 - Loiasis (ICD-10) Low back pain ?M54.50 - Low back pain, unspecified (ICD-10) Migraine ?G43.909 - Migraine, unspecified, not intractable, without status migrainosus (ICD-10) Mitral valve prolapse ?I34.1 - Nonrheumatic mitral (valve) prolapse (ICD-10) Nausea ?R11.0 - Nausea (ICD-10) Neck pain ?M54.2 - Cervicalgia (ICD-10) PCOS (polycystic ovarian syndrome) ?E28.2 - Polycystic ovarian syndrome (ICD-10) Pneumonia ?J18.9 - Pneumonia, unspecified organism (ICD-10) Seizure ?R56.9 - Unspecified convulsions (ICD-10) Stress incontinence ?N39.3 - Stress incontinence (female) (male) (ICD-10) Vaginal delivery ?O80 - Encounter for full-term uncomplicated delivery (ICD-10) Surgical History (Updated 07/20/22 @ 18:18 by Irlanda Weiss RN) H/O: ?Z98.891 - History of uterine scar from previous surgery (ICD-10) History of appendectomy ?Z90.49 - Acquired absence of other specified parts of digestive tract (ICD- 10) Hx laparoscopic cholecystectomy ?Z90.49 - Acquired absence of other specified parts of digestive tract (ICD- 10) S/P RAVI-BSO ?Z90.710 - Acquired absence of both cervix and uterus (ICD-10) ?Z90.722 - Acquired absence of ovaries, bilateral (ICD-10) ?Z90.79 - Acquired absence of other genital organ(s) (ICD-10) Family History (Updated 07/20/22 @ 17:40 by Irlanda Weiss RN) Other Acid reflux Acute renal disease Afib Chromosomal disorder Delayed developmental milestones Diabetes Family history of hypertension High cholesterol Neuro-irritability due to autonomic dysfunction Primary ciliary dyskinesia due to transposition of ciliary microtubules Pulmonary aspiration Tachycardia Social History (Updated 07/20/22 @ 18:20 by Irlanda Weiss RN) Within the past year, how often did you have a drink containing alcohol: never Score interpretation: A score less than 3 is consistent with normal alcohol consumption. 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 General: Non toxic, overweight female, she is speaking complete sentences, no respiratory distress Skin: Warm, dry, no pallor noted. There is no rash noted. Head: Normocephalic, atraumatic Eye: Normal conjunctiva, no drainage, EOMI. PERRL Ears, Nose, Mouth, and Throat: oral mucosa is moist. Nares patent. Cardiovascular: Regular Rate and Rhythm, No murmurs rubs or gallops appreciated Respiratory: Patient is in no distress, no accessory muscle use, lungs are clear to auscultation, no wheezing, rales or rhonchi Back: non-tender, no CVA tenderness bilaterally to percussion. GI: Normal bowel sounds, no tenderness to palpation, no masses appreciated. No rebound, guarding, or rigidity noted. Musculoskeletal: The patient has no evidence of calf tenderness, no pitting edema, symmetrical pulses noted bilaterally Neurological: A&O x4, normal speech Psychiatric: Cooperative Constitutional Vital Signs, click to edit/add: Last Vital Signs Temp 98.1 F 12/20/22 18:09 Pulse 87 12/20/22 20:05 Resp 22 12/20/22 20:05 BP 125/83 12/20/22 18:09 Pulse Ox 96 12/20/22 20:05 O2 Del Method Room Air 12/20/22 18:09 Course Vital Signs Vital signs: Vital Signs Temperature 98.1 F 12/20/22 18:09 Pulse Rate 99 H 12/20/22 18:09 Respiratory Rate 20 12/20/22 18:09 Blood Pressure 125/83 12/20/22 18:09 Pulse Oximetry 96 12/20/22 18:09 Oxygen Delivery Method Room Air 12/20/22 18:09 Temperature 98.1 F 12/20/22 18:09 Pulse Rate 87 12/20/22 20:05 Respiratory Rate 22 12/20/22 20:05 Blood Pressure 125/83 12/20/22 18:09 Pulse Oximetry 96 12/20/22 20:05 Oxygen Delivery Method Room Air 12/20/22 18:09 MDM - SOB/Dyspnea MDM Narrative Medical decision making narrative: 27-year-old female, nonsmoker, with a history of asthma presents for evaluation of 8 days of nonproductive cough, generalized, non-radiating chest pain with mild shortness of breath. She was seen in urgent care yesterday and told that she had pneumonia and given a prescription for steroids and 2 antibiotics. She has only been able to get a prescription for one of the antibiotics because the other one was out of stock at her pharmacy. Vital signs are stable. Her physical exam is benign. Her lungs are clear. EKG is a normal sinus rhythm. CXR was read by radiology as no acute infiltrate. She has a normal white count and hemoglobin. Her electrolytes are normal. She has normal troponin. D-dimer is also normal at 0.52. She was medicated in the ER with a Duoneb treatment. I discussed the results of her labs and gave her a copy of her chest x-ray report. I offered her a prescription for Tessalon Perles which she is in agreement with. I explained to her that she should continue her current treatment regimen and not expected to work in 24 hours. She most likely needs the steroids more than the antibiotics and I did discuss this with her. She is otherwise stable for discharge. Medical Records Medical records narrative: The [address] [address] XRay Report Signed Patient: MARGARET PLATT MR#: [id number] : 1995 Acct:[id number] Age/Sex: 27 / F ADM Date: 12/20/22 Loc: ER Attending Dr: Ordering Physician: Dinorah Driver Date of Service: 12/20/22 Procedure(s): XR chest 2V Accession Number(s): [id number] cc: Dinorahalexandr Driver; Lamont Blair M.D.~ The [place] [address] Patient Name: MARGARET PLATT MRN: [facility]:[id number] date: 1995 Sex: F Assigned Patient Location: ER Current Patient Location: ER Accession/Order Number: [id number] Exam Date: 12/20/2022 19:50 Report Date: 12/20/2022 20:18 At the request of: DINORAHALEXANDR DRIVER Procedure: XR chest 2V EXAM: XR chest 2V HISTORY: SOB and chest pain for 7 days. COMPARISON: 02/22/2019 TECHNIQUE: Upright PA and lateral chest x-ray FINDINGS: The heart is not enlarged and the vasculature is not distended. No acute infiltrate, effusion or pneumothorax is identified. The osseous structures are grossly intact. XR/XR chest 2V IMPRESSION: No acute infiltrate or evidence of cardiac decompensation. The overall appearance of the chest is essentially unchanged. Lab Data Labs: Lab Results 12/20/22 Range/Units 20:00 WBC 8.5 (4.0-11.0) 10^3/uL RBC 4.15 L (4.20-5.40) 10^6/uL Hgb 11.9 L (12.0-16.0) g/dL Hct 36.7 (36.0-48.0) % MCV 88.4 (81.0-99.0) fL MCH 28.7 (26.7-34.0) pg MCHC 32.4 (29.9-35.2) g/dL RDW 12.2 (11.0-15.0) % Plt Count 225 (150-450) 10^3/uL MPV 10.1 (9.5-13.5) fL Neut % (Auto) 71.5 (43.0-75.0) % Lymph % (Auto) 19.5 L (20.5-60.0) % [place] % (Auto) 5.5 (1.7-12.0) % Eos % (Auto) 2.8 (0.9-7.0) % Baso % (Auto) 0.5 (0.2-2.0) % Neut # (Auto) 6.1 (1.4-6.5) 10^3/uL Lymph # (Auto) 1.7 (1.2-3.8) 10^3/uL [place] # (Auto) 0.5 (0.3-0.8) 10^3/uL Eos # (Auto) 0.2 (0.0-0.7) 10^3/uL Baso # (Auto) 0.0 (0.0-0.1) 10^3/uL Abs Immat Gran (auto) 0.02 (0.00-0.03) 10^3/uL Imm/Tot Granulo (auto) 0.2 (0.0-0.5) % D-Dimer 0.52 (<=0.59) mg/L FEU Sodium 137 (136-145) mmol/L Potassium 3.5 (3.5-5.1) mmol/L Chloride 105 (98-107) mmol/L Carbon Dioxide 24.8 (21.0-32.0) mmol/L Anion Gap 10.7 BUN 10.0 (7.0-18.0) mg/dL Creatinine 0.56 (0.55-1.02) mg/dL Est GFR ( Amer) >60 (>=60) Est GFR (Non-Af Amer) >60 (>=60) BUN/Creatinine Ratio 17.9 Glucose 85 (74-106) mg/dL Calcium 8.6 (8.5-10.1) mg/dL Total Bilirubin 0.5 (0.2-1.0) mg/dL AST 15 (15-37) U/L ALT 18 (14-59) U/L Alkaline Phosphatase 79 (46-116) U/L Troponin I High Sens 4.1 (4.0-51.3) pg/mL Total Protein 6.7 (6.4-8.2) g/dL Albumin 3.5 (3.4-5.0) g/dL Globulin 3.2 g/dL Albumin/Globulin Ratio 1.1 ECG Data Attestation: I personally reviewed and interpreted this ECG as follows: (Sinus rhythm at 82 beats for minute, normal axis, normal intervals, no acute ST segment elevation or T-wave inversion) Discharge Plan Discharge Chief Complaint: Upper Respiratory Infection Clinical Impression: Viral upper respiratory tract infection with cough Patient Disposition: Home, Self-Care Time of Disposition Decision: 20:47 Condition: Good Prescriptions / Home Meds: No Action albuterol sulfate 0.63 mg/3 mL solution for nebulization 90 mg inhalation Q4H PRN (Reason: wheezing) baclofen 10 mg tablet 10 mg PO Q8H lamotrigine [Lamictal] 150 mg tablet 150 mg PO .qhs montelukast 10 mg tablet 10 mg PO DAILY PRN (Reason: allergies) budesonide-formoterol [Symbicort] 160-4.5 mcg/actuation HFA aerosol inhaler 2 inh inhalation BID lamotrigine [Lamictal] 25 mg tablet 25 mg PO QDAY diazepam 10 mg tablet 10 mg PO BID epinephrine 0.3 mg/0.3 mL auto-injector 0.3 mg IM Q10M PRN (Reason: anaphylaxis) Rx Instructions: for 2 doses lithium carbonate 150 mg capsule 150 mg PO QDAY lithium carbonate 300 mg tablet 300 mg PO .qhs trazodone 100 mg PO .qhs meloxicam 15 mg tablet 15 mg PO DAILY PRN (Reason: pain) Qty: 10 0RF promethazine 25 mg suppository 25 mg NV Q6H PRN (Reason: nausea and vomiting) Qty: 6 0RF promethazine 25 mg tablet 25 mg PO BID PRN (Reason: nausea and vomiting) Qty: 7 0RF xfaxlngiul-jufsebphzpzhj-bunc [Fioricet] 50-300-40 mg capsule 1 cap PO Q6H PRN (Reason: pain) Qty: 20 0RF Claritin-D 12 Hour 5-120 mg tablet extended release 12 hr 1 tab PO Q12H PRN (Reason: nasal congestion) Qty: 20 0RF promethazine 25 mg tablet 25 mg PO TID PRN (Reason: nausea and vomiting) Qty: 10 0RF Instructions: Upper Respiratory Infection (ED), Viral Syndrome (ED) Stand Alone Forms: Portal Instructions Referrals: Lamont Blair MD [Primary Care Provider] - 1 week
[2022-12-20 20:05] VITALS: PULSE 87; RESP 22; O2SAT 96
[2022-12-20] MEDS: IPRATROPIUM/ALBUTEROL SULFATE 3 ML AMPUL.NEB IH (20:05)
[2022-12-20 20:14] LABS: Basophils Percent Auto 0.5 % (0.2-2.0); Eosinophils Absolute Auto 0.2 10^3/uL (0.0-0.7); Eosinophils Percent Auto 2.8 % (0.9-7.0); Hematocrit 36.7 % (36.0-48.0); Hemoglobin 11.9 g/dL (12.0-16.0); Immature Granulocytes Abs Auto 0.02 10^3/uL (0.00-0.03); Immature Granulocytes Pct Auto 0.2 % (0.0-0.5); Lymphocytes Absolute Auto 1.7 10^3/uL (1.2-3.8); Lymphocytes Percent Auto 19.5 % (20.5-60.0); Mean Corpuscular HGB Conc 32.4 g/dL (29.9-35.2); Mean Corpuscular Hemoglobin 28.7 pg (26.7-34.0); Mean Corpuscular Volume 88.4 fL (81.0-99.0); Mean Platelet Volume 10.1 fL (9.5-13.5); Monocytes Absolute Auto 0.5 10^3/uL (0.3-0.8); Monocytes Percent Auto 5.5 % (1.7-12.0); Neutrophils Absolute Auto 6.1 10^3/uL (1.4-6.5); Neutrophils Percent Auto 71.5 % (43.0-75.0); Platelet Count 225 10^3/uL (150-450); Red Blood Count 4.15 10^6/uL (4.20-5.40); Red Cell Distribution Width 12.2 % (11.0-15.0); White Blood Count 8.5 10^3/uL (4.0-11.0)
[2022-12-20 20:29] LABS: Anion Gap 10.7
[2022-12-20 20:31] LABS: Alanine Aminotransferase 18 U/L (14-59); Albumin Globulin Ratio 1.1; Albumin Level 3.5 g/dL (3.4-5.0); Alkaline Phosphatase 79 U/L (46-116); Aspartate Amino Transferase 15 U/L (15-37); BUN Creatinine Ratio 17.9; Bilirubin Total 0.5 mg/dL (0.2-1.0); Calcium 8.6 mg/dL (8.5-10.1); Carbon Dioxide 24.8 mmol/L (21.0-32.0); Chloride 105 mmol/L (98-107); D Dimer 0.52 mg/L FEU (<=0.59); Estimated GFR (African America >60 (>=60); Estimated GFR (Non-African Ame >60 (>=60); Globulin 3.2 g/dL; Glucose 85 mg/dL (74-106); Potassium 3.5 mmol/L (3.5-5.1); Sodium 137 mmol/L (136-145); Total Protein 6.7 g/dL (6.4-8.2); Troponin I High Sensitivity 4.1 pg/mL (4.0-51.3)
[2022-12-20 21:04] VITALS: BP 128/80; PULSE 78; RESP 18; O2SAT 98
== END 2022-12-20 21:04 | disposition home or self-care (01) ==
PROVIDERS: Emergency Provider Emergency Medicine; PCP Family Medicine
DX: J06.9 Acute upper respiratory infection, unspecified (principal); R05.9 Cough, unspecified; J45.909 Unspecified asthma, uncomplicated; Z79.899 Other long term (current) drug therapy; Z90.710 Acquired absence of both cervix and uterus; F41.9 Anxiety disorder, unspecified; Z86.16 Personal history of COVID-19; K21.9 Gastro-esophageal reflux disease without esophagitis; Z87.442 Personal history of urinary calculi; E28.2 Polycystic ovarian syndrome; Z87.01 Personal history of pneumonia (recurrent); Z98.891 History of uterine scar from previous surgery; Z90.49 Acquired absence of other specified parts of digestive tract; Z90.722 Acquired absence of ovaries, bilateral; Z90.79 Acquired absence of other genital organ(s)
CPT/HCPCS: 36415; 71046; 80053; 84484; 85025; 85378; 93005; 94640; 99285

== ENCOUNTER 2022-12-27 20:26 | Outpatient (REF) | payer OTHER, SELFPAY ==
[2023-01-02 13:08] LABS: Age Gdln ACOG Testing Note (.); IGP, rfx Aptima HPV ASCU Note (.)
== END 2022-12-27 20:27 | disposition home or self-care (01) ==
LOC: LAB 20:26
PROVIDERS: PCP Family Medicine; Visit Provider Obstetrics & Gynecology
DX: Z01.419 Encounter for gynecological examination (general) (routine) without abnormal findings (principal)
CPT/HCPCS: G0145

== ENCOUNTER 2023-01-06 12:39 | Outpatient (OUT) | payer OTHER, SELFPAY | END 2023-01-06 12:40 | disposition home or self-care (01) | PROVIDERS: PCP Family Medicine; Visit Provider Obstetrics & Gynecology | DX: Z01.818 Encounter for other preprocedural examination (principal); R10.2 Pelvic and perineal pain; N93.9 Abnormal uterine and vaginal bleeding, unspecified ==

== ENCOUNTER 2023-01-20 08:18 | Day surgery (SDC) | payer OTHER, SELFPAY ==
[2023-01-06 13:20] VITALS: BP 103/71; PULSE 82; RESP 20; TEMP 36.5; O2SAT 94; BMI 45.5
[2023-01-20] VITALS (18 sets, daily range): BP systolic 97–130; BP diastolic 63–83; PULSE 70–89; RESP 11–19; TEMP 36.1–36.9; O2SAT 94–100
[2023-01-20 08:29] LABS: Basophils Absolute Auto 0.1 10^3/uL (0.0-0.1); Basophils Percent Auto 0.6 % (0.2-2.0); Eosinophils Absolute Auto 0.3 10^3/uL (0.0-0.7); Eosinophils Percent Auto 3.5 % (0.9-7.0); Hematocrit 37.9 % (36.0-48.0); Hemoglobin 12.5 g/dL (12.0-16.0); Immature Granulocytes Abs Auto 0.03 10^3/uL (0.00-0.03); Immature Granulocytes Pct Auto 0.4 % (0.0-0.5); Lymphocytes Absolute Auto 2.5 10^3/uL (1.2-3.8); Lymphocytes Percent Auto 30.2 % (20.5-60.0); Mean Corpuscular Hemoglobin 29.4 pg (26.7-34.0); Mean Corpuscular Volume 89.2 fL (81.0-99.0); Mean Platelet Volume 9.3 fL (9.5-13.5); Monocytes Absolute Auto 0.5 10^3/uL (0.3-0.8); Monocytes Percent Auto 6.1 % (1.7-12.0); Neutrophils Absolute Auto 4.9 10^3/uL (1.4-6.5); Neutrophils Percent Auto 59.2 % (43.0-75.0); Platelet Count 234 10^3/uL (150-450); Red Blood Count 4.25 10^6/uL (4.20-5.40); Red Cell Distribution Width 12.4 % (11.0-15.0); White Blood Count 8.2 10^3/uL (4.0-11.0)
--- NOTE | 2023-01-20 09:09 | PC.NURSE ---
Anesthesia aware of last seizure
[2023-01-20] MEDS: LACTATED RINGER'S SOLUTION 1,000 ML 50 ML IV (09:10)
[2023-01-20] MEDS: SCOPOLAMINE 1 MG/3 DAYS TRANSDERM PATCH 1 PATCH TD (09:43)
[2023-01-20] MEDS: ALBUTEROL SULFATE 2.5 MG/3 ML VIAL NEB IH (11:44)
[2023-01-20] MEDS: PROMETHAZINE HCL 25 MG/ML VIAL 12.5 MG IV (11:55)
[2023-01-20] MEDS: HALOPERIDOL LACTATE 5 MG/ML VIAL IV (12:00)
[2023-01-20] MEDS: MEPERIDINE HCL/PF 25 MG/ML VIAL IVP (12:05)
[2023-01-20] MEDS: HYDROMORPHONE HCL 1 MG/ML CARTRIDGE IV (12:10)
[2023-01-20] MEDS: LACTATED RINGER'S SOLUTION 1,000 ML 75 ML IV (12:36)
--- NOTE | 2023-01-20 12:52 | P.ON_ITS ---
Brief Operative Note Date of procedure: 01/20/23 Pre-op diagnosis: pelvic pain, dysparuenia Post-op diagnosis: same as pre-op Procedure: NAME OF PROCEDURE: [diagnostic laparoscopy with extensive lysis of omental adhesions PROCEDURE: The patient was taken back to the Operating Room where she was placed in dorsal lithotomy position after given general anesthesia. The patient was prepped and draped in normal sterile fashion. A sponge stick was placed into the patient's vagina. Attention was turned to the patient's abdomen, where a small umbilical incision was made. The fascia was tented using Cherie clamps and the fascia was entered sharply. Confirmation of intraabdominal placement of the 10 mm port was confirmed under direct visualization using a laparoscope. The patient's abdomen was then insufflated using CO2 gas with approximately 4 liters. A second port was placed left laterally, this was done under direct visualization with a 5 mm port. Survey of the patient's abdomen demonstrated normal liver and gallbladder. Survey of the patient's pelvic anatomy demonstrated absent uterus and tubes, could not visual lt ovary, rt ovary identified and normal in appearance. Extensive omental adhesion were transected and lysed using the ligasure. No endometrial implants could be noted, no evidence of any pelvic disease was seen, normal appearing pelvic cavity. All instruments were removed from the patient's abdomen. The patient's abdomen was deinsufflated of CO2 gas. The patient tolerated the procedure well. Sponge stick was removed from the patient's vagina. The patient's infraumbilical fascia was closed using #0 Vicryl on a GI needle. The patient's skin was closed laterally and infraumbilically using 4-0 Vicryl. The patient tolerated the procedure well. Sponge, lap and needle counts were correct x 2. The patient was taken to Recovery Room in stable condition. Anesthesia: ISAÍASA Surgeon: Zay Blas Vice President Media Relations: Suzan Hensley Estimated blood loss (mL): 10 Pathology: none sent Condition: stable Disposition: PACU
[2023-01-20] MEDS: HYDROCODONE/ACET 5-325 MG TABLET 2 TAB PO (18:17)
--- NOTE | 2023-01-20 19:15 | RESP.RT ---
decreased down to 2L
--- NOTE | 2023-01-20 19:35 | PC.NURSE ---
3 band aids to abdomen with drainage observed.
[2023-01-20] MEDS: LACTATED RINGER'S SOLUTION 1,000 ML 125 ML IV (20:59)
[2023-01-20] MEDS: IBUPROFEN 600 MG TABLET 800 MG PO (21:47)
[2023-01-21 02:54] VITALS: O2SAT 92
[2023-01-21 03:43] VITALS: O2SAT 99
--- NOTE | 2023-01-21 03:43 | RESP.RT ---
decreased down to room air
[2023-01-21 05:59] VITALS: BP 123/72; PULSE 87; RESP 18; TEMP 36.7; O2SAT 92
[2023-01-21] MEDS: HYDROCODONE/ACET 5-325 MG TABLET 2 TAB PO (06:05)
== END 2023-01-21 06:59 | disposition home or self-care (01) ==
LOC: SURGOUT 12:52 → MS 13:22
PROVIDERS: PCP Family Medicine; Visit Provider Obstetrics & Gynecology
PROC: (CPT 840; principal; 2023-01-20 09:30)
DX: R10.2 Pelvic and perineal pain (principal); N94.10 Unspecified dyspareunia; K66.0 Peritoneal adhesions (postprocedural) (postinfection); N93.9 Abnormal uterine and vaginal bleeding, unspecified; J45.909 Unspecified asthma, uncomplicated; F32.A Depression, unspecified; Z90.49 Acquired absence of other specified parts of digestive tract; Z90.710 Acquired absence of both cervix and uterus; Z98.51 Tubal ligation status; R56.9 Unspecified convulsions; E66.01 Morbid (severe) obesity due to excess calories; Z68.42 Body mass index [BMI] 45.0-49.9, adult; K21.9 Gastro-esophageal reflux disease without esophagitis
CPT/HCPCS: 49329; 36415; 85025; 94640; 94667; 94761; J1170; J2704

== ENCOUNTER 2023-01-26 09:50 | Observation (INO) | payer OTHER, SELFPAY ==
[2023-01-26] VITALS (9 sets, daily range): BP systolic 106–138; BP diastolic 55–83; PULSE 87–108; RESP 16–24; TEMP 36.6–36.8; O2SAT 91–96; BMI 46.3; BMI 43.4
--- NOTE | 2023-01-26 10:21 | ED_ITS ---
HPI - SOB/Dyspnea General Chief Complaint: Shortness of Breath/Dyspnea Stated Complaint: SHORTNESS OF BREATH/ POST OPERATIVE Time Seen by Provider: 01/26/23 10:21 Mode of arrival: walk-in Limitations: no limitations History of Present Illness HPI Narrative: this patient here complaining of increasing shortness of breath. She was at her [facility]M SETTER's office for routine postop evaluation. She's been ill since Monday. She's on dual nebulizers every six hours. Urgent care start her on prednisone Monday. She is not running a fever. She is known to be a severe asthmatic. She is also on Singulair, asthma medication and ALLERGY medication as well. She's not have a Covid test she's not had a chest x-ray. Related Data Home Medications Medication Instructions Recorded Confirmed albuterol sulfate 0.63 mg/3 mL 90 mg inhalation Q4H PRN wheezing 07/20/22 01/26/23 solution for nebulization baclofen 10 mg tablet 10 mg PO Q8H 07/20/22 01/26/23 budesonide-formoterol HFA 160 2 inh inhalation BID 07/20/22 01/26/23 mcg-4.5 mcg/actuation aerosol inhaler (Symbicort) diazepam 10 mg tablet 10 mg PO BID 07/20/22 01/26/23 epinephrine 0.3 mg/0.3 mL 0.3 mg IM Q10M PRN anaphylaxis 07/20/22 01/26/23 injection, auto-injector lamotrigine 150 mg tablet 150 mg PO .qhs 07/20/22 01/26/23 (Lamictal) lamotrigine 25 mg tablet (Lamictal) 500 mg PO QDAY 07/20/22 01/26/23 lithium carbonate 150 mg capsule 150 mg PO QDAY 07/20/22 01/26/23 lithium carbonate 300 mg tablet 300 mg PO .qhs 07/20/22 01/26/23 trazodone 300 mg PO .qhs 07/20/22 01/26/23 chlorzoxazone 500 mg tablet 500 mg PO TID 01/06/23 01/26/23 estradiol 0.5 mg tablet 0.5 mg PO DAILY 01/06/23 01/26/23 ciprofloxacin HCl 500 mg tablet mg 01/26/23 Previous Rx's Medication Instructions Recorded [id number] 1 cap PO Q6H PRN pain #20 caps 11/08/22 50 mg-300 mg-40 mg capsule (Fioricet) loratadine 5 mg-pseudoephedrine ER 1 tab PO Q12H PRN nasal congestion 11/08/22 120 mg tablet,extended #20 tabs release,12hr (Claritin-D 12 Hour) promethazine 25 mg tablet 25 mg PO TID PRN nausea and 11/24/22 vomiting #10 tabs ibuprofen 800 mg tablet 800 mg PO Q8H PRN pain 14 days #40 01/20/23 tabs Allergies Allergy/AdvReac Type Severity Reaction Status Date / Time dihydroergotamine Allergy Severe Rash Verified 01/06/23 13:03 buspirone Allergy Hives Verified 01/06/23 13:03 carbamazepine Allergy Unknown Verified 01/06/23 13:03 ciprofloxacin [From Cipro] Allergy Hives Verified 01/20/23 08:43 levetiracetam [From Keppra] Allergy ITCHING Verified 01/20/23 08:42 azithromycin [From Zithromax] AdvReac Intermediate Hives Verified 01/06/23 13:03 bee venom protein (honey bee) AdvReac Intermediate Hives Verified 01/06/23 13:03 metoclopramide [From Reglan] AdvReac Intermediate panic Verified 01/06/23 13:03 adhesive tape AdvReac Mild Rash Verified 01/06/23 13:03 cephalexin [From Keflex] AdvReac Mild Hives Verified 01/06/23 13:03 dextromethorphan AdvReac Mild Unknown Verified 01/06/23 13:03 [From [place] DM] pyrilamine [From [place] DM] AdvReac Mild Unknown Verified 01/06/23 13:03 propranolol AdvReac Hives Verified 01/06/23 13:03 [facility] Medical History (Updated 01/26/23 @ 12:34 by Jesse Estrada MD) Combative behavior ?R46.89 - Other symptoms and signs involving appearance and behavior (ICD-10) Postoperative nausea and vomiting ?R11.2 - Nausea with vomiting, unspecified (ICD-10) ?Z98.890 - Other specified postprocedural states (ICD-10) Vaginal bleeding ?N93.9 - Abnormal uterine and vaginal bleeding, unspecified (ICD-10) Abscess of vagina ?N76.0 - Acute vaginitis (ICD-10) PCOS (polycystic ovarian syndrome) ?E28.2 - Polycystic ovarian syndrome (ICD-10) Mitral valve prolapse ?I34.1 - Nonrheumatic mitral (valve) prolapse (ICD-10) Vaginal delivery ?O80 - Encounter for full-term uncomplicated delivery (ICD-10) Nausea ?R11.0 - Nausea (ICD-10) GERD (gastroesophageal reflux disease) ?K21.9 - Gastro-esophageal reflux disease without esophagitis (ICD-10) Depression ?F32.A - Depression, unspecified (ICD-10) Blood in urine ?R31.9 - Hematuria, unspecified (ICD-10) Acne ?L70.9 - Acne, unspecified (ICD-10) Dyspareunia Brain mass ?G93.89 - Other specified disorders of brain (ICD-10) Pneumonia ?J18.9 - Pneumonia, unspecified organism (ICD-10) Kidney stones ?N20.0 - Calculus of kidney (ICD-10) COVID-19 ?U07.1 - COVID-19 (ICD-10) Bronchitis ?J40 - Bronchitis, not specified as acute or chronic (ICD-10) Asthma ?J45.909 - Unspecified asthma, uncomplicated (ICD-10) Stress incontinence ?N39.3 - Stress incontinence (female) (male) (ICD-10) Dysuria ?R30.0 - Dysuria (ICD-10) Seizure ?R56.9 - Unspecified convulsions (ICD-10) Neck pain ?M54.2 - Cervicalgia (ICD-10) Migraine ?G43.909 - Migraine, unspecified, not intractable, without status migrainosus (ICD-10) Low back pain ?M54.50 - Low back pain, unspecified (ICD-10) Head injury ?S09.90XA - Unspecified injury of head, initial encounter (ICD-10) Anxiety ?F41.9 - Anxiety disorder, unspecified (ICD-10) Surgical History (Updated 01/06/23 @ 12:50 by Rocio Schwartz NP) H/O laparoscopy (07/21/22) ?Z98.890 - Other specified postprocedural states (ICD-10) S/P RAVI-BSO ?Z90.710 - Acquired absence of both cervix and uterus (ICD-10) ?Z90.722 - Acquired absence of ovaries, bilateral (ICD-10) ?Z90.79 - Acquired absence of other genital organ(s) (ICD-10) Hx laparoscopic cholecystectomy ?Z90.49 - Acquired absence of other specified parts of digestive tract (ICD- 10) H/O: ?Z98.891 - History of uterine scar from previous surgery (ICD-10) History of appendectomy ?Z90.49 - Acquired absence of other specified parts of digestive tract (ICD- 10) Family History (Updated 07/20/22 @ 17:40 by Irlanda Weiss RN) Other Acid reflux Acute renal disease Afib Chromosomal disorder Delayed developmental milestones Diabetes Family history of hypertension High cholesterol Neuro-irritability due to autonomic dysfunction Primary ciliary dyskinesia due to transposition of ciliary microtubules Pulmonary aspiration Tachycardia Social History (Updated 01/20/23 @ 08:49 by Joyce Zhong) Within the past year, how often did you have a drink containing alcohol: never Score interpretation: A score less than 3 is consistent with normal alcohol consumption. 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 Respiratory rate is twenty. Pulse oximetry ninety-six ninety-eight percent on room air. She on examination scan it's warm and dry with no pallor or diaphoresis or cyanosis. Eye examination shows no conjunctivitis. Chest examination shows decreased aeration bilaterally with some end expiratory wheezing. With coughing maneuvers she does have more bronchospasm and coughing. Heart rate and rhythm are normal. Lower extremities do not show evidence of deep vein thrombosis or phlebitis or erythema. Constitutional Vital Signs, click to edit/add: Last Vital Signs Temp 97.8 F 01/26/23 10:01 Pulse 97 H 01/26/23 10:01 Resp 24 01/26/23 10:01 BP 134/69 01/26/23 10:01 Pulse Ox 96 01/26/23 10:01 O2 Del Method Room Air 01/26/23 10:01 Course Vital Signs Vital signs: Vital Signs Temperature 97.8 F 01/26/23 10:01 Pulse Rate 97 H 01/26/23 10:01 Respiratory Rate 24 01/26/23 10:01 Blood Pressure 134/69 01/26/23 10:01 Pulse Oximetry 96 01/26/23 10:01 Oxygen Delivery Method Room Air 01/26/23 10:01 Temperature 97.8 F 01/26/23 10:01 Pulse Rate 97 H 01/26/23 10:01 Respiratory Rate 24 01/26/23 10:01 Blood Pressure 134/69 01/26/23 10:01 Pulse Oximetry 96 01/26/23 10:01 Oxygen Delivery Method Room Air 01/26/23 10:01 MDM - SOB/Dyspnea MDM Narrative Medical decision making narrative: patient's received a DuoNeb and submits venous Solu-Medrol here. She was reevaluated. She is moving more air and does not have as much bronchospasm. Her chest x-ray was normal. Both her influenza and cold or testing are negative. She believes she should be admitted to the hospital because she will go take care of herself at home with for special needs children. So she is requesting admission.I did speak to the hospitalist who agrees to put her in for continuation of supportive care. He has low risk factors for pulmonary embolism Discharge Plan Discharge Chief Complaint: Shortness of Breath/Dyspnea Clinical Impression: Reactive airway disease with wheezing with acute exacerbation Patient Disposition: Admitted as Observation Time of Disposition Decision: 12:34 Prescriptions / Home Meds: No Action albuterol sulfate 0.63 mg/3 mL solution for nebulization 90 mg inhalation Q4H PRN (Reason: wheezing) baclofen 10 mg tablet 10 mg PO Q8H lamotrigine [Lamictal] 150 mg tablet 150 mg PO .qhs budesonide-formoterol [Symbicort] 160-4.5 mcg/actuation HFA aerosol inhaler 2 inh inhalation BID lamotrigine [Lamictal] 25 mg tablet 500 mg PO QDAY diazepam 10 mg tablet 10 mg PO BID epinephrine 0.3 mg/0.3 mL auto-injector 0.3 mg IM Q10M PRN (Reason: anaphylaxis) Rx Instructions: for 2 doses lithium carbonate 150 mg capsule 150 mg PO QDAY lithium carbonate 300 mg tablet 300 mg PO .qhs trazodone 300 mg PO .qhs [id number] [Fioricet] 50-300-40 mg capsule 1 cap PO Q6H PRN (Reason: pain) Qty: 20 0RF Claritin-D 12 Hour 5-120 mg tablet extended release 12 hr 1 tab PO Q12H PRN (Reason: nasal congestion) Qty: 20 0RF promethazine 25 mg tablet 25 mg PO TID PRN (Reason: nausea and vomiting) Qty: 10 0RF chlorzoxazone 500 mg tablet 500 mg PO TID estradiol 0.5 mg tablet 0.5 mg PO DAILY ibuprofen 800 mg tablet 800 mg PO Q8H PRN (Reason: pain) 14 Days Qty: 40 0RF ciprofloxacin HCl 500 mg tablet Referrals: Lamont Blair MD [Primary Care Provider] - 1 week
--- NOTE | 2023-01-26 10:23 | XR_ITS ---
The [address] [address] Patient Name: MARGARET PLATT MRN: [id number] date: 1995 Sex: F Assigned Patient Location: ER Current Patient Location: ER Accession/Order Number: [id number] Exam Date: 01/26/2023 10:48 Report Date: 01/26/2023 11:07 At the request of: DENNIS TAMAYO Procedure: XR chest 1V EXAM: Chest x-ray HISTORY: . dyspnea . COMPARISON: None. TECHNIQUE: Angled view of the chest FINDINGS: Heart and vascularity are unremarkable. Lungs are free of focal infiltrates. No effusions are noted. Grossly no bony abnormality is appreciated. XR/XR chest 1V IMPRESSION: No acute heart or lung disease identified. Electronically authenticated by: NUZHAT MICHAUD Date: 01/26/2023 11:07
[2023-01-26] MEDS: IPRATROPIUM/ALBUTEROL SULFATE 3 ML AMPUL.NEB IH ×4 (10:35→23:57)
[2023-01-26] MEDS: METHYLPREDNISOLONE SOD SUCC PF 125 MG/2 ML VIAL IVP (10:46)
[2023-01-26 11:58] LABS: Influenza Virus A Antigen Negative; Influenza Virus B Antigen Negative; Internal Control Within Normal Limits
[2023-01-26 11:59] LABS: SARS-CoV-2 Ag NEGATIVE (NEGATIVE)
--- NOTE | 2023-01-26 14:26 | P.HP_ITS ---
<Statement entered by Shaikh Joanna MD - 01/27/23 13:36> This documentation has been reviewed and approved. Patient was not seen or interviewed by me. Chart reviewed and case d/w Eloina. Agree with her clinical documentation, treatment plan <Statement entered by Basil Aviles MD - 01/26/23 21:03> This documentation has been sent to me to co sign however I am not working with this individual and am signing with no other alternative thus do not validate the note. H&P: HPI History of Present Illness Chief complaint: SHORTNESS OF BREATH/ POST OPERATIVE Narrative: 01/26/23 2627 This is a 27-year-old female patient with a past medical history as outlined below including asthma, PCOS, migraine headaches, GERD, depression and anxiety, and seizure disorders; who presented to the ED today complaining of persistent asthma exacerbation with shortness of breath and activity intolerance. The patient reports that she had a exploratory lap per Dr. Blas last Monday (1 week ago). She was discharged home on Monday. By Monday evening she was beginning to have increased shortness of breath and wheezing. She presented to urgent care on Monday morning and was treated with p.o. steroids, antibiotics, and DuoNeb breathing treatments. Her symptoms have slowly worsened and she is severely activity intolerant by today and presented to the ED for further evaluation. Workup in the ED was mostly unremarkable with negative COVID and influenza swabs and chest x-ray with no acute disease identified. She was briefly on nasal cannula in the ED but was able to be weaned off after breathing treatments and Solu-Medrol were administered. The patient was initially supposed to discharge home but she felt like she was still to activity intolerance and would have difficulty at home. She is being admitted to the hospitalist service under observation for further treatment. At the time of my exam the patient is resting in bed comfortably without respiratory distress. She reports severe coughing that leads to vomiting and significant activity intolerance. She also reports poor p.o. intake over the last several days after her surgery and d/t gagging with prolonged coughing. She reports using her DuoNebs and HFA inhalers excessively over the last several days. On exam her lung sounds remain very tight with I&D wheezing scattered throughout with primary inspiratory wheezing noted. She remained stable without hypoxia on room air. Review of Systems ROS Status of ROS 10 or more systems reviewed and unremark able except as noted in history and below [facility] Medical History (Updated 01/26/23 @ 14:48 by Eloina Ledezma NP) Pelvic pain ?R10.2 - Pelvic and perineal pain (ICD-10) Headache ?R51.9 - Headache, unspecified (ICD-10) Bilateral occipital neuralgia ?M54.81 - Occipital neuralgia (ICD-10) Migraine ?G43.909 - Migraine, unspecified, not intractable, without status migrainosus (ICD-10) Post-op pain ?G89.18 - Other acute postprocedural pain (ICD-10) Combative behavior ?R46.89 - Other symptoms and signs involving appearance and behavior (ICD-10) Postoperative nausea and vomiting ?R11.2 - Nausea with vomiting, unspecified (ICD-10) ?Z98.890 - Other specified postprocedural states (ICD-10) Vaginal bleeding ?N93.9 - Abnormal uterine and vaginal bleeding, unspecified (ICD-10) Abscess of vagina ?N76.0 - Acute vaginitis (ICD-10) PCOS (polycystic ovarian syndrome) ?E28.2 - Polycystic ovarian syndrome (ICD-10) Mitral valve prolapse ?I34.1 - Nonrheumatic mitral (valve) prolapse (ICD-10) Vaginal delivery ?O80 - Encounter for full-term uncomplicated delivery (ICD-10) Nausea ?R11.0 - Nausea (ICD-10) GERD (gastroesophageal reflux disease) ?K21.9 - Gastro-esophageal reflux disease without esophagitis (ICD-10) Depression ?F32.A - Depression, unspecified (ICD-10) Blood in urine ?R31.9 - Hematuria, unspecified (ICD-10) Acne ?L70.9 - Acne, unspecified (ICD-10) Dyspareunia Brain mass ?G93.89 - Other specified disorders of brain (ICD-10) Pneumonia ?J18.9 - Pneumonia, unspecified organism (ICD-10) Kidney stones ?N20.0 - Calculus of kidney (ICD-10) COVID-19 ?U07.1 - COVID-19 (ICD-10) Bronchitis ?J40 - Bronchitis, not specified as acute or chronic (ICD-10) Asthma ?J45.909 - Unspecified asthma, uncomplicated (ICD-10) Stress incontinence ?N39.3 - Stress incontinence (female) (male) (ICD-10) Dysuria ?R30.0 - Dysuria (ICD-10) Seizure ?R56.9 - Unspecified convulsions (ICD-10) Neck pain ?M54.2 - Cervicalgia (ICD-10) Migraine ?G43.909 - Migraine, unspecified, not intractable, without status migrainosus (ICD-10) Low back pain ?M54.50 - Low back pain, unspecified (ICD-10) Head injury ?S09.90XA - Unspecified injury of head, initial encounter (ICD-10) Anxiety ?F41.9 - Anxiety disorder, unspecified (ICD-10) Surgical History (Updated 01/06/23 @ 12:50 by Rocio Schwartz NP) H/O laparoscopy (07/21/22) ?Z98.890 - Other specified postprocedural states (ICD-10) S/P RAVI-BSO ?Z90.710 - Acquired absence of both cervix and uterus (ICD-10) ?Z90.722 - Acquired absence of ovaries, bilateral (ICD-10) ?Z90.79 - Acquired absence of other genital organ(s) (ICD-10) Hx laparoscopic cholecystectomy ?Z90.49 - Acquired absence of other specified parts of digestive tract (ICD- 10) H/O: ?Z98.891 - History of uterine scar from previous surgery (ICD-10) History of appendectomy ?Z90.49 - Acquired absence of other specified parts of digestive tract (ICD- 10) Family History (Updated 07/20/22 @ 17:40 by Irlanda Weiss RN) Other Acid reflux Acute renal disease Afib Chromosomal disorder Delayed developmental milestones Diabetes Family history of hypertension High cholesterol Neuro-irritability due to autonomic dysfunction Primary ciliary dyskinesia due to transposition of ciliary microtubules Pulmonary aspiration Tachycardia Social History (Updated 01/20/23 @ 08:49 by Joyce Zhong) Within the past year, how often did you have a drink containing alcohol: never Score interpretation: A score less than 3 is consistent with normal alcohol consumption. 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 level of school completed/degree received: high school graduate Gender Identity: female Meds Home Medications and Allergies Home Medications Medication Instructions Recorded Confirmed Type baclofen 10 mg tablet 10 mg PO TID PRN spasms 07/20/22 01/26/23 History diazepam 10 mg tablet 10 mg PO BID 07/20/22 01/26/23 History epinephrine 0.3 mg/0.3 mL 0.3 mg IM Q10M PRN anaphylaxis 07/20/22 01/26/23 His tory injection, auto-injector trazodone 300 mg PO .qhs 07/20/22 01/26/23 History estradiol 0.5 mg tablet 0.5 mg PO QAM 01/06/23 01/26/23 History albuterol sulfate 2.5 mg/3 mL 2.5 mg inhalation Q6H 01/26/23 01/26/23 History (0.083 %) solution for nebulization ibuprofen 800 mg tablet 800 mg PO Q8H PRN pain 01/26/23 01/26/23 History lithium carbonate 300 mg capsule 300 mg PO BID 01/26/23 01/26/23 History loratadine-pseudoephedrine ER 10 1 tab PO DAILY 01/26/23 01/26/23 History mg-240 mg tablet,extended [id number] (AllerClear D-24hr) promethazine 25 mg tablet 12.5 mg PO Q6H PRN nausea and 01/26/23 01/26/23 History vomiting Allergies Allergy/AdvReac Type Severity Reaction Status Date / Time dihydroergotamine Allergy Severe Rash Verified 01/06/23 13:03 buspirone Allergy Hives Verified 01/06/23 13:03 carbamazepine Allergy Unknown Verified 01/06/23 13:03 ciprofloxacin [From Cipro] Allergy Hives Verified 01/20/23 08:43 levetiracetam [From Keppra] Allergy ITCHING Verified 01/20/23 08:42 azithromycin [From Zithromax] AdvReac Intermediate Hives Verified 01/06/23 13:03 bee venom protein (honey bee) AdvReac Intermediate Hives Verified 01/06/23 13:03 metoclopramide [From Reglan] AdvReac Intermediate panic Verified 01/06/23 13:03 adhesive tape AdvReac Mild Rash Verified 01/06/23 13:03 cephalexin [From Keflex] AdvReac Mild Hives Verified 01/06/23 13:03 dextromethorphan AdvReac Mild Unknown Verified 01/06/23 13:03 [From [place] DM] pyrilamine [From [place] DM] AdvReac Mild Unknown Verified 01/06/23 13:03 propranolol AdvReac Hives Verified 01/06/23 13:03 Exam Constitutional Vital Signs, click to edit/add: Last Vital Signs Temp 98.3 F 01/26/23 13:50 Pulse 87 01/26/23 13:50 Resp 20 01/26/23 13:50 BP 138/83 01/26/23 13:50 Pulse Ox 95 01/26/23 13:50 O2 Del Method Room Air 01/26/23 13:50 Common normals: no apparent distress, oriented x3, alert and well nourished General appearance: cooperative Orientation/consciousness: Yes awake HENMT Common normals: normocephalic, head/scalp atraumatic, hearing grossly normal bilaterally and external nose normal Mouth: moist mucous membranes abnormal Details: cracked Eye Common normals: PERRL, EOMs intact bilaterally, conjunctivae normal and no scleral icterus Alignment: alignment normal Eyelid: eyelids normal Neck & C-Spine Common normals: full ROM, supple and no JVD Chest Common normals: inspection of chest normal Chest: symmetrical chest wall rise Respiratory Common normals: normal respiratory effort, no retractions and no use of accessory muscles Effort & inspection: able to speak in complete sentences Auscultation: wheezes (I&E scattered throughout. Primarily insp whz noted.Tight. Poor air exchange) and diminished lung sounds (Very diminished BLL) Cardio Common normals: no JVD, regular rate, regular rhythm, S1 normal heart sound, S2 normal heart sound, no gallops, no clicks, no murmurs, no rub and peripheral pulses 2+ throughout GI Common normals: Normal to inspection, nondistended, normoactive bowel sounds present, soft to palpation, no hepatosplenomegaly, no masses and no bruits Palpation: tender ([place] incision tend. Healing well, no redness/drng) Bladder/kidney exam: bladder normal to palpation Bimanual exam- vagina & uterus: bladder normal to palpation Back & Pelvis Common normals: thoracic and lumbar spine normal to inspection Extremity Common normals: normal capillary refill General: normal exam except as noted and edema (Trace bilat insteps); no clubbing and no cyanosis Neuro Robyn Coma Scale: GCS not evaluated Common normals: CN's II-XII intact bilaterally, moves all extremities, no focal motor deficits and no sensory deficits noted Speech: speech normal Motor exam: strength 5/5 throughout Psych Common normals: mental status grossly normal, thought process normal, affect normal and activity/motor behavior normal Results Pulse Oximetry Attestation: I have reviewed the pertinent pulse oximetry results. Assessment and Plan Assessment and Plan (1) Reactive airway disease with wheezing with acute exacerbation: Assessment and Plan: ACUTE * Adm observation * Duoneb q4h scheduled, alb neb q2h PRN * Pulmicort nebs BID * Solumedrol 125 mg given in ED - continue w/ 40 mg q8h * Mag sulfate 2gm IVPB now - smooth muscle relaxation * No indication for ABX at this time * Continue home Claritin and Singulair * CBC, CMP now & in AM (2) Nausea & vomiting: Assessment and Plan: ACUTE * Post operative N/V last week * Persistent now w/ coughing only * Zofran IVP for nausea (3) Dehydration: Assessment and Plan: ACUTE * Clinical dehydration on exam * LR at 125/hr * CMP now and in AM (4) Postoperative abdominal pain: Assessment and Plan: SUBACUTE * Exp lap last one week ago w/ lysis of adhesions * Continue home PRN [place]
[2023-01-26] MEDS: ONDANSETRON PF 4 MG/2 ML VIAL IV (14:52)
[2023-01-26 14:57] LABS: Anion Gap 11.9; BUN Creatinine Ratio 23.3; Calcium 8.9 mg/dL (8.5-10.1); Carbon Dioxide 27.1 mmol/L (21.0-32.0); Chloride 103 mmol/L (98-107); Estimated GFR (African America >60 (>=60); Estimated GFR (Non-African Ame >60 (>=60); Glucose 82 mg/dL (74-106); Sodium 138 mmol/L (136-145)
[2023-01-26] MEDS: LACTATED RINGER'S SOLUTION 1,000 ML 125 ML IV ×2 (15:25→22:02)
[2023-01-26] MEDS: MAGNESIUM SULFATE IN WATER 2 GM/50 ML PREMIX IV (15:28)
[2023-01-26 15:57] LABS: Basophils Percent Auto 0.1 % (0.2-2.0); Eosinophils Percent Auto 0.3 % (0.9-7.0); Hematocrit 37.8 % (36.0-48.0); Hemoglobin 12.3 g/dL (12.0-16.0); Immature Granulocytes Abs Auto 0.06 10^3/uL (0.00-0.03); Immature Granulocytes Pct Auto 0.6 % (0.0-0.5); Lymphocytes Absolute Auto 1.4 10^3/uL (1.2-3.8); Lymphocytes Percent Auto 13.6 % (20.5-60.0); Mean Corpuscular HGB Conc 32.5 g/dL (29.9-35.2); Mean Corpuscular Hemoglobin 29.3 pg (26.7-34.0); Mean Platelet Volume 9.2 fL (9.5-13.5); Monocytes Absolute Auto 0.1 10^3/uL (0.3-0.8); Neutrophils Absolute Auto 8.5 10^3/uL (1.4-6.5); Neutrophils Percent Auto 84.4 % (43.0-75.0); Platelet Count 259 10^3/uL (150-450); Red Cell Distribution Width 12.9 % (11.0-15.0); White Blood Count 10.1 10^3/uL (4.0-11.0)
[2023-01-26] MEDS: HYDROCODONE/ACET 5-325 MG TABLET 1 TAB PO (16:00)
[2023-01-26 16:19] LABS: SARS-CoV-2 NAA NOT DETECTED (NOT DETECTE)
[2023-01-26] MEDS: GUAIFENESIN 600 MG TAB.ER.12H PO (17:02)
[2023-01-26] MEDS: BUDESONIDE 0.5 MG/2 ML AMPULE NEB IH (20:06)
[2023-01-26] MEDS: METHYLPREDNISOLONE SOD SUCC PF 40 MG/ML VIAL IVP (20:47)
[2023-01-26] MEDS: KETOROLAC TROMETHAMINE 30 MG/ML VIAL 15 MG IVP (20:47)
[2023-01-26] MEDS: LITHIUM CARBONATE 150 MG CAPSULE 300 MG PO (20:48)
[2023-01-26] MEDS: ENOXAPARIN SODIUM 40 MG/0.4 ML SYRINGE SUBQ (20:48)
[2023-01-26] MEDS: DIPHENHYDRAMINE HCL 25 MG CAPSULE 75 MG PO (20:48)
[2023-01-26] MEDS: DIAZEPAM 5 MG TABLET 10 MG PO (20:49)
[2023-01-26] MEDS: MAGNESIUM OXIDE 400 MG TABLET PO (20:49)
[2023-01-26] MEDS: ORPHENADRINE CITRATE 100 MG TABLET.ER PO (20:49)
[2023-01-26] MEDS: BACLOFEN 10 MG TABLET PO (21:48)
[2023-01-26] MEDS: TRAZODONE HCL 150 MG TABLET 300 MG PO (21:48)
[2023-01-26] MEDS: LAMOTRIGINE 100 MG TABLET 200 MG PO (21:48)
[2023-01-27 00:05] VITALS: PULSE 85; RESP 20; O2SAT 96
[2023-01-27] MEDS: GUAIFENESIN 600 MG TAB.ER.12H PO (05:07)
[2023-01-27] MEDS: METHYLPREDNISOLONE SOD SUCC PF 40 MG/ML VIAL IVP ×2 (05:07→11:36)
[2023-01-27 05:16] VITALS: PULSE 89; RESP 20; O2SAT 95
[2023-01-27] MEDS: IPRATROPIUM/ALBUTEROL SULFATE 3 ML AMPUL.NEB IH ×2 (05:16→09:24)
[2023-01-27 05:26] VITALS: BP 117/67; PULSE 81; RESP 18; TEMP 36.4; O2SAT 96
[2023-01-27] MEDS: LACTATED RINGER'S SOLUTION 1,000 ML 125 ML IV (06:10)
[2023-01-27 06:54] LABS: Basophils Percent Auto 0.1 % (0.2-2.0); Eosinophils Percent Auto 0.1 % (0.9-7.0); Hematocrit 35.8 % (36.0-48.0); Hemoglobin 11.4 g/dL (12.0-16.0); Immature Granulocytes Pct Auto 0.9 % (0.0-0.5); Lymphocytes Absolute Auto 0.7 10^3/uL (1.2-3.8); Lymphocytes Percent Auto 5.8 % (20.5-60.0); Mean Corpuscular HGB Conc 31.8 g/dL (29.9-35.2); Mean Corpuscular Hemoglobin 29.5 pg (26.7-34.0); Mean Corpuscular Volume 92.5 fL (81.0-99.0); Mean Platelet Volume 9.2 fL (9.5-13.5); Monocytes Absolute Auto 0.4 10^3/uL (0.3-0.8); Monocytes Percent Auto 3.7 % (1.7-12.0); Neutrophils Absolute Auto 10.5 10^3/uL (1.4-6.5); Neutrophils Percent Auto 89.4 % (43.0-75.0); Platelet Count 273 10^3/uL (150-450); Red Blood Count 3.87 10^6/uL (4.20-5.40); White Blood Count 11.7 10^3/uL (4.0-11.0)
[2023-01-27 07:00] LABS: Alanine Aminotransferase 35 U/L (14-59); Albumin Globulin Ratio 0.9; Albumin Level 3.2 g/dL (3.4-5.0); Alkaline Phosphatase 72 U/L (46-116); Anion Gap 16.1; Aspartate Amino Transferase 14 U/L (15-37); BUN Creatinine Ratio 19.1; Bilirubin Total 0.2 mg/dL (0.2-1.0); Calcium 8.3 mg/dL (8.5-10.1); Carbon Dioxide 21.1 mmol/L (21.0-32.0); Chloride 105 mmol/L (98-107); Estimated GFR (African America >60 (>=60); Estimated GFR (Non-African Ame >60 (>=60); Globulin 3.5 g/dL; Glucose 131 mg/dL (74-106); Potassium 4.2 mmol/L (3.5-5.1); Sodium 138 mmol/L (136-145); Total Protein 6.7 g/dL (6.4-8.2)
[2023-01-27] MEDS: LAMOTRIGINE 25 MG TABLET PO (09:22)
[2023-01-27] MEDS: CETIRIZINE HCL 10 MG TABLET PO (09:22)
[2023-01-27] MEDS: LITHIUM CARBONATE 150 MG CAPSULE 300 MG PO (09:22)
[2023-01-27] MEDS: DIAZEPAM 5 MG TABLET 10 MG PO (09:22)
[2023-01-27] MEDS: ESTRADIOL 1 MG TABLET 0.5 MG PO (09:22)
[2023-01-27] MEDS: BUDESONIDE 0.5 MG/2 ML AMPULE NEB IH (09:24)
[2023-01-27 09:25] VITALS: PULSE 98; O2SAT 96
--- NOTE | 2023-01-27 09:33 | CM.NOTE ---
Rounding with Dr. Marshall. Pt. states she feels 100% better. RT at bedside and receiving breathing treatment at this time. Likely discharge today, no anticipated needs.
--- NOTE | 2023-01-27 12:11 | PM.DS1 ---
DS: Providers Provider Date of admission: 01/26/23 12:34 Primary care physician: Lamont Blair MD Attending physician on discharge: Shaikh Joanna Discharging clinician: Shaikh Joanna Anticipated date of discharge: 01/27/23 DS: Diagnosis Discharge Diagnosis (1) Reactive airway disease with wheezing with acute exacerbation: Assessment and plan: Admitted for asthma exacerbation. Doing well. No wheezing on exam today. Comfortable. Stable for d/c Qualifiers: Asthma severity: severe Asthma persistence: persistent Qualified Code(s): J45.51 - Severe persistent asthma with (acute) exacerbation (2) Nausea & vomiting: Assessment and plan: Had poor PO intake, nausea and vomiting - suspect due to asthma along with recent diagnostic laparoscopy affecting her ability to eat adequately. Doing well, toelrating diet. Qualifiers: Vomiting type: unspecified Qualified Code(s): R11.2 - Nausea with vomiting, unspecified (3) Dehydration: Assessment and plan: Improved (4) Postoperative abdominal pain: Assessment and plan: Controlled (5) Bipolar disorder: Assessment and plan: c/w home meds Qualifiers: Active/Remission status: in full remission Most recent bipolar episode type: unspecified type Qualified Code(s): F31.70 - Bipolar disorder, currently in remission, most recent episode unspecified (6) Seizure disorder: Assessment and plan: on lamotrigine. well controlled DS: Summary Hospital Course Hospital Course: Patient presented with worsening SOB - admitted for asthma exacerbation. She had recent diagnostic laparoscopy about a week ago and with cough - she would sometimes vomit and experiencing worsening of her abdominal pain.. She is doing much better today with no active complains to offer. W/u in ED revealed no sig abnormality. She was treated with systemic steroids and duonebs overnight with improvement in her clinica/resp status. Status at Discharge Functional status at discharge: independent ambulation Overall status at discharge: patient is back to baseline Time Spent with Patient Time attestation: Total time spent providing and/or coordinating discharge services: Time spent: greater than 30 minutes Exam Constitutional Vital Signs, click to edit/add: Last Vital Signs Temp 97.5 F L 01/27/23 05:26 Pulse 98 H 01/27/23 09:25 Resp 18 01/27/23 05:26 BP 117/67 01/27/23 05:26 Pulse Ox 96 01/27/23 09:25 O2 Del Method Room Air 01/27/23 09:25 Documenting provider has reviewed patient's vital signs: yes Common normals: no apparent distress and oriented x3 General appearance: cooperative Respiratory Common normals: normal respiratory effort and clear to auscultation bilaterally Effort & inspection: able to speak in complete sentences Auscultation: clear to auscultation bilaterally Cardio Common normals: regular rate, S1 normal heart sound and S2 normal heart sound Rate: regular rate Heart sounds: S1 normal and S2 normal GI Common normals: Normal to inspection, nondistended, normoactive bowel sounds present, soft to palpation, non-tender and no hepatosplenomegaly Palpation: soft and no hepatosplenomegaly Neuro Common normals: oriented x3, moves all extremities and no focal motor deficits Psych Common normals: mental status grossly normal, denies hallucinations, denies homicidal ideation and denies suicidal ideation DS: Data Data Completed and Pending Labs on day of discharge: Labs from last 24 hours 01/27/23 01/26/23 01/26/23 06:38 15:50 10:51 WBC 11.7 H 10.1 RBC 3.87 L 4.20 Hgb 11.4 L 12.3 Hct 35.8 L 37.8 MCV 92.5 90.0 MCH 29.5 29.3 MCHC 31.8 32.5 RDW 13.0 12.9 Plt Count 273 259 MPV 9.2 L 9.2 L Neut % (Auto) 89.4 H 84.4 H Lymph % (Auto) 5.8 L 13.6 L Alfalfa % (Auto) 3.7 1.0 L Eos % (Auto) 0.1 L 0.3 L Baso % (Auto) 0.1 L 0.1 L Neut # (Auto) 10.5 H 8.5 H Lymph # (Auto) 0.7 L 1.4 Alfalfa # (Auto) 0.4 0.1 L Eos # (Auto) 0.0 0.0 Baso # (Auto) 0.0 0.0 Abs Immat Gran (auto) 0.10 H 0.06 H Imm/Tot Granulo (auto) 0.9 H 0.6 H Sodium 138 138 Potassium 4.2 4.0 Chloride 105 103 Carbon Dioxide 21.1 27.1 Anion Gap 16.1 11.9 BUN 13.0 17.0 Creatinine 0.68 0.73 Est GFR ( Amer) >60 >60 Est GFR (Non-Af Amer) >60 >60 BUN/Creatinine Ratio 19.1 23.3 Glucose 131 H 82 Calcium 8.3 L 8.9 Total Bilirubin 0.2 AST 14 L ALT 35 Alkaline Phosphatase 72 Total Protein 6.7 Albumin 3.2 L Globulin 3.5 Albumin/Globulin Ratio 0.9 SARS-CoV-2 RNA ([facility]) Not detected Discharge Plan Discharge Disposition: Home, Self-Care Discharge Medications: New prednisone 20 mg tablet 20 mg PO BID 5 Days Qty: 10 0RF Continued baclofen 10 mg tablet 10 mg PO TID PRN (Reason: spasms) Rx Instructions: per refill hx: last filled 01/17/23 for QTY 90 / 30 days diazepam 10 mg tablet 10 mg PO BID Rx Instructions: per refill hx: last filled 12/31/22 for QTY 60 / 30 days epinephrine 0.3 mg/0.3 mL auto-injector 0.3 mg IM Q10M PRN (Reason: anaphylaxis) Rx Instructions: for 2 doses trazodone 300 mg PO .qhs Rx Instructions: per refill hx: last filled 01/17/23 for QTY 30 / 30 days estradiol 0.5 mg tablet 0.5 mg PO QAM AllerClear D-24hr 10-240 mg tablet extended release 24 hr 1 tab PO DAILY Rx Instructions: per refill hx: last filled 01/17/23 for QTY 30 / 30 days ibuprofen 800 mg tablet 800 mg PO Q8H PRN (Reason: pain) Rx Instructions: per refill hx: last filled 01/21/23 QTY 40 for 13 days promethazine 25 mg tablet 12.5 mg PO Q6H PRN (Reason: nausea and vomiting) Rx Instructions: per refill hx: last filled 01/17/23 for QTY 90 / 22 days lithium carbonate 300 mg capsule 300 mg PO BID Rx Instructions: per refill hx: last filled 01/17/23 for QTY 60 / 30 days orphenadrine citrate 100 mg tablet extended release 100 mg PO PRN lamotrigine 200 mg tablet 200 mg PO .hs lamotrigine 25 mg tablet 25 mg PO .q am toradol 10 mg tablet 10 mg PO Q6H PRN (Reason: migraine headache) magnesium 400 mg tablet See Rx Instructions .ROUTE .COMPLEX PRN (Reason: migraine headache) Rx Instructions: PRN; diphenhydramine HCl [Benadryl] 25 mg capsule 75 mg PO PRN PRN (Reason: migraine headache) Patient Instructions: Asthma (DC) Forms: Portal Instructions Follow Up Appointments: @ 2:20 with MARY Child [address] [place] [address] Alejandra Vidal [phone] Patient is to call Dr. Jason (pulmonary) on Monday and schedule a New Patient follow up appt. for 7-10 days. Office #: [phone]
[2023-01-28 10:11] LABS: Lithium (Eskalith(R)), Serum 0.2 mmol/L (0.5-1.2)
--- NOTE | 2023-01-30 15:03 | CM.DCFOLLOWU ---
Person spoke with: Sandie How are you feeling? Still not great How is your pain? No pain Did you understand your discharge instructions? Yes Do you have any questions about your discharge instructions? No Were you given any prescriptions at discharge? Yes Were you able to get your prescriptions filled? Yes Do you understand how to take your medications as ordered? Yes Do you have any questions about your follow up appointment and do you plan to keep your follow up appointment? No scheduled with primary care but still need to make pulmonology appt. Is there anything else that you would like to discuss? No Questions/Comments/Concerns/Other:
[2023-01-30 17:09] LABS: Lamotrigine (Lamictal), Serum <1.0 ug/mL (2.0-20.0)
--- OUTSIDE RECORDS SUMMARY | 2023-02-08 03:12 | XMS_ITS | CCD ---
Author Name Unknown Address [address] [place] [address] Organization [facility] Care Team Providers Care Singer And Unloader Name Role Phone Maria Del Rosario Hahn (Historical) Primary Care Provide r Unavailable Sandhya SPINDRAW OPERATOR - DOPSTER, Angélica Pamela Primary Care Provider SANDHYA ANGÉLICA Santiago Primary Care Unavailable VIELKA CHING Attending Unavailable Sandhya SPINDRAW OPERATOR - DOPSTER, Angélica Pamela Primary Care Provider 1( [phone] LUCILA MOTA Attending Unavailable LYNDSEY STEWART Referring Unavailable DANIELKrupa ANGÉLICA Pamela Primary Care Unavailable LUCILA MOTA Admitting Unavailable Maria Del Rosario Hahn (Historical) Primary Care Provide r Unavailable KRISTOFER BURCIAGA Attending Unavailab Zay Tavarez Referring Unavailable Maria Del Rosario Hahn (Historical) Primary Care Provide r Unavailable BRICE ., CHAYITO Admitting Unavailable BRICE ., CHAYITO Attending Unavailable BRICE ., CHAYITO Consulting Unavailable LAURITA, DR SPENSER Garcia Primary Care Unavailable LEONARDO ., DR GUTIERREZ Admitting Unavailable LEONARDO ., DR GUTIERREZ Attending Unavailable NADMIKEY, DR SPENSER Garcia Primary Care Unavailable LEONARDO ., DR GUTIERREZ Consulting Unavailable DIAB ., L[facility] Attending Unavailable DIAB ., [facility] Consulting Unavailable MATHEUSC, DR GOMEZ Primary Care Unavailable DIAB ., [facility]UH Admitting Unavailable MANJINDER DEAL Attending Unavailable MANJINDER DEAL Consulting Unavailable MANJINDER DEAL Admitting Unavailable LAURITA, DR SPENSER Garcia Primary Care Unavailable JEFFERSON .MARY Consulting Unavaildeshaun e ANASTASIA, DR GOMEZ Primary Care Unavailable PAY ., DR SOLORIO Admitting Unavailable PAY ., DR SOLORIO Attending Unavailable LEONARDO ., DR GUTIERREZ Consulting Unavailable LEONARDO ., DR GUTIERREZ Admitting Unavailable LEONARDO ., DR GUTIERREZ Attending Unavailable REQUEST, DR NONE LISTED Primary Care Unavaila ble SUKHDEEP DOCKERY Attending Unavailable SUKHDEEP DOCKERY Admitting Unavailable KUNKrupa, DR ANGÉLICA Santiago Primary Care Unavailable GRECHNY ., MARY WHITNEY Consulting Unavailabl e ANASTASIIA, HOSM Consulting Unavailable SUKHDEEP DOCKERY Attending Unavailable KUNKrupa, DR ANGÉLICA Santiago Primary Care Unavailable SUKHDEEP DOCKERY Admitting Unavailable HAY ., DR HARMAN Consulting Unavailable SUKHDEEP DOCKERY Consulting Unavailable NABILA TONY Consulting Unavailable FAWWAD, LEW H Admitting Unavailable FAWWAD, LEW H Attending Unavailable ZISYDNIE, DR LOPEZ Santiago Consulting Unavailable REQUEST, NONE LISTED Primary Care Unavaila ble PAY ., DR SOLORIO Consulting Unavailable SAY, MANJINDER Consulting Unavailable FAWWAD, LEW H Consulting Unavailable SAY, MANJINDER Admitting Unavailable SAY, MANJINDER Attending Unavailable SAY, MANJINDER Consulting Unavailable SANDHYA, DR ANGÉLICA Santiago Primary Care Unavailable SAY, MANJINDER Attending Unavailable SAY, MANJINDER Consulting Unavailable REQUEST, DR NONE LISTED Primary Care Unavaila ble SAY, MANJINDER Admitting Unavailable PATRICIA WALSH Consulting Unavailable [facility] [place]OMEZ Primary Care Unavailable HAY ., DR HARMAN Attending Unavailable HAY ., DR HARMAN Admitting Unavailable NEWSTEWART, NICHOLAS Consulting Unavailable UNLU, SINDY Consulting Unavailable LEONARDO ., DR GUTIERREZ Admitting Unavailable LEONARDO ., DR GUTIERREZ Consulting Unavailable [facility] Primary Care Unavailable LEONARDO ., DR GUTIERREZ Attending Unavailable KUNS, DR ANGÉLICA Santiago Primary Care Unavailable LEONARDO ., DR GUTIERREZ Admitting Unavailable LEONARDO ., DR GUTIERREZ Attending Unavailable LEONARDO ., DR GUTIERREZ Consulting Unavailable LEONARDO ., DR GUTIERREZ Admitting Unavailable LEONARDO ., DR GUTIERREZ Attending Unavailable NADERER, DR SPENSER Garcia Primary Care Unavailable [facility] Primary Care Unavailable HAY ., DR HARMAN Consulting Unavailable HAY ., DR HARMAN Admitting Unavailable HAY ., DR HARMAN Attending Unavailable KONNICOLE KING Consulting Unavailable KUNKrupa, DR ANGÉLICA Santiago Primary Care Unavailable MARKER ., DR ONEAL Attending Unavailable MARKER ., DR ONEAL Consulting Unavailable MARKER ., DR ONEAL Admitting Unavailable ROBIN IRBY Consulting Unavailable SAY, MANJINDER Attending Unavailable SAY, MANJINDER Consulting Unavailable SAY, MANJINDER Admitting Unavailable KUNS, DR ANGÉLICA Santiago Primary Care Unavailable KUNS, DR ANGÉLICA Santiago Referring Unavailable LEONARDO ., DR GUTIERREZ Admitting Unavailable LEONARDO ., DR GUTIERREZ Attending Unavailable LEONARDO ., DR GUTIERREZ Consulting Unavailable REQUEST, DR RM LISTED Primary Care Unavaila ble AGUBOSIM, BARON Consulting Unavailable LEONARDO ., DR GUTIERREZ Procedure Practitioner Unavail able LONG, KRYSTIN Consulting Unavailable LUCIE, KLEBER Consulting Unavailable DORKOSKIE, SHARDA Consulting Unavailable ALECIA ., DENNIS Admitting Unavailable ALECIA ., DENNIS Attending Unavailable MISC, DR GOMEZ Primary Care Unavailable HAY ., DR HARMAN Consulting Unavailable RIZZO, ANKUR Consulting Unavailable ALECIA ., DENNIS Consulting Unavailable KUNS, DR ANGÉLICA Santiago Primary Care Unavailable LEONARDO ., DR GUTIERREZ Admitting Unavailable LEONARDO ., DR GUTIERREZ Attending Unavailable COELHO, MARIPOSA Consulting Unavailable LESLY, BLUE Primary Care Unavailable HAY ., DR HARMAN Attending Unavailable HAY ., DR HARMAN Consulting Unavailable HAY ., DR HARMAN Admitting Unavailable AHDOOT, NELI Consulting Unavailable MARIA DEL ROSARIO HAHN Referring Unavailable MARIA DEL ROSARIO HAHN Referring Unavailable GREENLOGAN Attending Unavailable GREENLOGAN Attending Unavailable ОЛЬГА AGUILAR Attending Unavailable BIDDLECOMSUZAN Attending Unavailable GREENLOGAN Referring Unavailable GREENLOGAN Attending Unavailable DAVID GOLDMAN Attending Unavailable DAVID GOLDMAN Admitting Unavailable MARKER, DINORAH ESCUDERO Referring Unavailable GREENLOGAN Attending Unavailable JESSE WHARTON Attending Unavailable MARIA DEL ROSARIO HAHN Referring Unavailable Ramsey Maloney Attending Unavailab le Ramsey Maloney Admitting Unavailab le NON STAFF Primary Care Unavailable ZAY BLAS Attending Unavailable Allergies Allergy Classification Reported Allergen(s) Allergy Type Date of Onset Reaction(s) Facility (20 sources) Azithromycin; Translations: [AZITHROMYCIN] Drug Allergy 1 Hives, Other: See Comments [facility] [employer] (2 sources) carBAMazepine Drug Allergy 1 Other (See Comments) [facility] (20 sources) Cephalexin; Translations: [CEPHALEXIN] Drug Allergy 1 Hives, Rash [facility] (20 sources) Metoclopramide; Translations: [METOCLOPRAMIDE] Drug Allergy 1 Hives, Intolerance [facility] (2 sources) Propranolol Drug Allergy 1 Hives, Other (See Comments) [employer] (20 sources) Adhesive Tape-Silicones; Translations: [ADHESIVE TAPE-SILICONES] Drug Allergy 2 Rash [facility] (20 sources) Dextromethorphan / Pyrilamine; Translations: [PYRILAMINE-DEXTROME THORPHAN] [facility] Work Phone: (20 sources) vortioxetine; Translations: [VORTIOXETINE] [facility] Work Phone: (17 sources) Dihydroergotamine; Translations: [DIHYDROERGOTAMINE] Drug Allergy 3 Intolerance [facility] (1 source) Azithromycin Drug Allergy [facility] (1 source) bee venom Drug allergy (disorder) [facility] (1 source) Cephalexin Drug Allergy [facility] (1 source) Desonide Drug Allergy [facility] (1 source) Iothalamate Drug Allergy [facility] (1 source) Propranolol Drug Allergy 1 [facility] (1 source) [place] [facility] Drug allergy (disorder) 2 [facility] (6 sources) levETIRAcetam; Translations: [LEVETIRACETAM] Drug Allergy 3 Itching [facility] Work Phone: Medications Current Medications Medication Drug Class(es) Dates Sig (Normalized) Sig (Original) Acetaminophen (2 sources) Start: 10-19-2021 acetaminophen (TYLENOL) tablet 1,000 mg Start: 10-19-2021 End: 10-19-2021 acetaminophen (TYLENOL) tabl et 650 mg lidocaine 0.04 mg/mg medicated patch (1 source) Antiarrhythmic, Amide Local Anesthetic Start: 10-20-2021 lidocaine 4 % external patch 1 patch loperamide hydrochloride 2 mg oral capsule (1 source) Opioid Agonist Start: 10-20-2021 loperamide (IMODIUM) capsule 2 mg methocarbamol 500 mg oral tablet (3 sources) Muscle Relaxant Start: 09-12-2022 End: 10-12-2022 take 1 tablet by mouth twice daily methocarbamol (ROBAXIN) 500 mg tablet Take 1 tablet by mouth twice daily. 60 tablet 2 09/12/2022 10/12/2022 Discontinued (Lack of Efficacy) Comment on above: Take 1 tablet by sami twice daily. ondansetron (ZOFRAN-ODT) disintegrating tablet 4 mg (1 source) Start: 10-19-2021 ondansetron (Z OFRAN-ODT) disintegrating tablet 4 mg Completed/Discontinued Medications Medication Drug Class(es) Dates Sig (Normalized) Sig (Original) baclofen 10 mg oral tablet (10 sources) gamma-Aminobutyric Acid-ergic Agonist Start: 11-22-2021 baclofen (LIORESAL) 10 mg tablet onabotulinumtoxina 200 unt injection (7 sources) Acetylcholine Release Inhibitor Start: 10-12-2022 onabotulinum toxin type A 200 Units injection (BOTOX) cariprazine 4.5 mg oral capsule (4 sources) Atypical Antipsychotic cariprazine (VRAYLAR) 4.5 mg capsule Vraylar 4.5 mg capsule 0 Active Comment on above: Vraylar 4.5 mg capsu le chlorzoxazone 500 mg oral tablet (6 sources) Muscle Relaxant Start: 10-12-2022 End: 12-09-2022 take 1 tablet by mouth three times daily as needed for headache chlorzoxazone (PARAFON FORTE DSC) 500 mg tablet Indications: Chronic migraine w/o aura, not intractable, w/o stat migr , Cervicalgia , Migraine without aura and without status migrainosus, not intractable Take 1 tablet by mouth up to three times a day as needed, immediately at onset of headache for rescue. 30 tablet 0 12/09/2022 Active Comment on above: Take 1 tablet by sami up to three times a day as needed, immediately at onset of headache for rescue. cyclobenzaprine hydrochloride 10 mg oral tablet (2 sources) Muscle Relaxant End: 10-20-2021 take 1 tablet by mouth three times daily cyclobenzaprine (FLEXERIL) 10 MG tablet Take 10 mg by mouth 3 times daily 0 10/20/2021 Discontinued (Stop Taking at Discharge) diazePAM 10 mg oral tablet (20 sources) Benzodiazepine Start: 10-04-2022 diazePAM (VALIUM) 10 mg tablet take 1 tablet by sami th every six hours as needed for anxiety diazePAM (VALIUM) 5 MG tablet Take 5 mg by mouth every 6 hours as needed for Anxiety. 0 Suspended 1 ml diphenhydrAMINE hydrochloride 50 mg/ml cartridge (1 source) Histamine-1 Receptor Antagonist Start: 12-24-2020 End: 12-24-2020 diphenhydrAMINE (BENADRYL) injection 50 mg 0.4 ml enoxaparin sodium 100 mg/ml prefilled syringe (1 source) Low Molecular Weight Heparin Start: 10-19-2021 inject 40 mg by subcutaneous injection once daily 40 mg, SubCUTAneous, DAILY, First dose on Mon10/19/21 at 1245, Until Discontinued Indication of Use: Prophylaxis-DVT/PE FLUoxetine 20 mg oral capsule (2 sources) Serotonin Reuptake Inhibitor End: 10-20-2021 take 3 capsules by mouth once daily FLUoxetine (PROZAC) 20 MG capsule Take 60 mg by mouth daily 0 10/20/2021 Discontinued (Stop Taking at Discharge) 1.5 ml fremanezumab-vfrm 150 mg/ml auto-injector (4 sources) Start: 11-25-2020 fremanezumab-vfrm (AJOVY AUTOINJECTOR) 225 mg/1.5 mL auto-injector Ajovy 225 mg/1.5 mL subcutaneous auto-injector 0 11/25/2020 Active Comment on above: Ajovy 225 mg/1.5 mL subcutaneous auto-injector gabapentin 600 mg oral tablet (6 sources) Anti-epileptic Agent Start: 10-23-2021 gabapenti n (NEURONTIN) 600 mg tablet End: 10-20-2021 gabapentin (NEURONTIN) 600 M G tablet Take 300 mg by mouth 3 times daily. 0 10/20/2021 Discontinued (Stop Taking at Discharge) take 1 tablet by sami th once daily gabapentin (NEURONTIN) 600 MG tablet Take 600 mg by mouth nightly. 0 Active gadoteridol (PROHANCE) injection 20 mL (1 source) Start: 10-19-2021 End: 10-19-2021 gadoteridol (PROHANCE) injection 20 mL 1 ml galcanezumab-gnlm 120 mg/ml auto-injector (20 sources) Start: 09-27-2022 End: 11-10-2022 inject 1 mL by subcutaneous injection every month galcanezumab-gnlm (EMGALITY PEN) 120 mg/mL pen Inject 1 mL subcutaneously once every month. Do not shake. 1 Each 11 09/27/2022 11/10/2022 Discontinued (Course of therapy completed) Start: 09-27-2022 End: 11-10-2022 inject 2 doses by subcutaneous injection every month galcanezumab-gnlm 120 mg/mL subcutaneous pen injector (EMGALITY) Inject 2 Pens subcutaneously one time only for 1 dose. For first month only. Refrigerate. Do not shake. 2 Each 0 09/27/2022 11/10/2022 Discontinued (Course of therapy completed) Start: 06-24-2022 inject 1 mL by subcu taneous injection every month galcanezumab-gnlm (EMGALITY PEN) 120 mg/mL pen Inject 1 mL subcutaneously once every month. Do not shake. 1 Each 2 06/24/2022 Active Start: 06-24-2022 inject 2 doses by carlos bcutaneous injection every month galcanezumab-gnlm 120 mg/mL subcutaneous pen injector (EMGALITY) Inject 2 Pens subcutaneously one time only for 1 dose. For first month only. Refrigerate. Do not shake. 2 Each 0 06/24/2022 Active Comment on above: Inject 1 mL subcutan eously once every month. Do not shake. Inject 2 Pens subcut aneously one time only for 1 dose. For first month only. Refrigerate. Do not shake. ketorolac tromethamine 10 mg oral tablet (15 sources) Nonsteroidal Anti-inflammatory Drug, Cyclooxygenase Inhibitor Start: 05-08-2022 End: 12-09-2022 take 1 tablet by mouth every six hours as needed keTORolac (TORADOL) 10 mg tablet Take 1 tablet by mouth every 6 hours as needed (severe migraine). 20 tablet 2 12/09/2022 Active Start: 12-24-2020 End: 12-24-2020 ketorolac (TORADOL) injectio n 15 mg Comment on above: Take 1 tablet by sami th every 6 hours as needed (severe migraine). Take 10 mg by mouth. lamoTRIgine 150 mg oral tablet (20 sources) Mood Stabilizer, Anti-epileptic Agent Start: 11-23-2021 lamoTRIgine (LAMICTAL) 150 mg tablet Start: 10-21-2021 take 2 tablets by mo [facility] once daily lamoTRIgine (LAMICTAL) 25 MG tablet Take 2 tablets by mouth daily 30 tablet 3 10/21/2021 Active Start: 10-19-2021 lamoTRIgine (L AMICTAL) tablet 50 mg levETIRAcetam 250 mg oral ta blet (3 sources) Start: 08-08-2022 levETIRAcetam (KEPPRA) 250 mg tablet Take 1 at bedtime. Can increase to bid after 2 weeks if needed 60 tablet 2 08/08/2022 Active Comment on above: Take 1 at bedtime. C an increase to bid after 2 weeks if needed lithium carbonate 300 mg oral tablet (17 sources) Start: 06-13-2022 lithium carbon ate 300 mg tablet LORazepam 2 mg oral tablet (2 sources) Benzodiazepine End: 10-20-2021 take 1 tablet by mouth twice daily LORazepam (ATIVAN) 2 MG tablet Take 2 mg by mouth 2 times daily. 0 10/20/2021 Discontinued (Stop Taking at Discharge) magnesium oxide 400 mg oral capsule (17 sources) magnesium oxide 400 mg magnesium cap magnesium 400 mg (as magnesium oxide) capsule 0 Active Comment on above: magnesium 400 mg (as magnesium oxide) capsule 2 ml midazolam 1 mg/ml injection (1 source) Benzodiazepine Start: 10-19-2021 End: 10-19-2021 midazolam PF (VERSED) injection 1 mg naratriptan 2.5 mg oral tablet (4 sources) Serotonin-1b and Serotonin-1d Receptor Agonist Start: 12-03-2021 take 1 tablet by mouth every four hours as needed naratriptan (AMERGE) 2.5 mg tablet Take 1 tablet by mouth as needed. 2.5 mg at onset of headache, may repeat in 4 hours if needed 10 tablet 5 12/03/2021 Active Comment on above: [facility] 2.5 mg at onset of headache, may repeat in 4 hours if needed 2 ml ondansetron 2 mg/ml injection (1 source) Serotonin-3 Receptor Antagonist Start: 12-24-2020 End: 12-24-2020 ondansetron (ZOFRAN) injection 4 mg 12 hr orphenadrine citrate 100 mg extended release oral tablet (2 sources) Muscle Relaxant Start: 12-12-2022 take 1 tablet by mouth every twelve hours as needed orphenadrine ER (NORFLEX) 100 mg tablet Take 1 tablet by mouth two times a day as needed. 30 tablet 5 12/12/2022 Active Comment on above: Take 1 tablet by sami th two times a day as needed. polyethylene glycol [id number] mg powder for oral solution (1 source) Osmotic Laxative Start: 10-19-2021 17 g, Oral, D AILY PRN, Starting on Mon10/19/21 at 1226, Until Discontinued, Constipation First line therapy for constipation promethazine hydrochloride 12.5 mg oral tablet (18 sources) Phenothiazine Start: 06-22-2022 End: 08-31-2022 take 1 tablet by mouth every six hours as needed promethazine (PHENERGAN) 12.5 mg tablet Take 1 tablet by mouth every 6 hours as needed. 90 tablet 2 08/31/2022 Active Comment on above: Take 12.5 mg by mout h every 6 hours as needed. Take 1 tablet by sami th every 6 hours as needed. 5 ml sodium chloride 9 mg/ml injection (6 sources) Start: 10-19-2021 take 1 dose intravenously twice daily 5-40 mL, IntraVENous, EVERY 12 HOURS SCHEDULED (2 times per day), First dose on Mon10/19/21 at 2100, Until Discontinued For Line Patency: Peripheral IV = 5 mL; Midline or Central Line = 10 mL/lumen. If following IV push medication, administer flush at same rate as the IV push. Flush volume is determined by type of infusion therapy being given. For non-viscous solutions use: Peripheral IV = 5 mL Midline or Central Line = 10 mL/lumen For viscous solutions (i.e. blood components, parenteral nutrition, contrast media, or after obtaining blood sample) use: Peripheral IV = 10 mL Midline or Central Line = 20 mL/lumen Start: 10-19-2021 sodium chlorid e flush 0.9 % injection 10 mL Start: 10-19-2021 End: 10-20-2021 IntraVENous, at 125 mL/hr, CONTINUOUS, Starting on Mon10/19/21 at 1245 Start: 10-19-2021 IntraVENous, a t 5-250 mL/hr, PRN, if patient receiving piggyback infusions and maintenance fluids are not ordered OR KVO fluids to protect IV site / prevent frequent line interruptions/ long duration, Starting on Mon10/19/21 at 1226 For piggyback infusion, administer at same rate as piggyback for a total of 25 mL. Enter 25 mL into dose field and piggyback rate into rate field of order. If piggyback is infusing at a rate less than 100 mL/hr, enter 25 mL into dose field and 100 mL/hr into rate field of order. For KVO fluids, enter rate of 20 mL/hr or less into rate field of order. Start: 10-19-2021 take 5-40 mL intrave nously once as needed 5-40 mL, IntraVENous, PRN, Starting on Mon10/19/21 at 1226, Until Discontinued, Line Care, After every IV line use For Line Patency: Peripheral IV = 5 mL; Midline or Central Line = 10 mL/lumen. If following IV push medication, administer flush at same rate as the IV push. Flush volume is determined by type of infusion therapy being given. For non-viscous solutions use: Peripheral IV = 5 mL Midline or Central Line = 10 mL/lumen For viscous solutions (i.e. blood components, parenteral nutrition, contrast media, or after obtaining blood sample) use: Peripheral IV = 10 mL Midline or Central Line = 20 mL/lumen Start: 12-24-2020 End: 12-24-2020 0.9 % sodium chloride bolus SUMAtriptan 100 mg oral tablet (3 sources) Serotonin-1b and Serotonin-1d Receptor Agonist End: 12-03-2021 SUMAtriptan (IMITREX) 100 mg tablet Take 100 mg by mouth. 0 12/03/2021 Discontinued (Lack of Efficacy) Comment on above: Take 100 mg by mouth . traZODone hydrochloride 100 mg oral tablet (17 sources) Serotonin Reuptake Inhibitor Start: 06-13-2022 traZODone (DESYREL) 100 mg tablet 24 hr venlafaxine 75 mg extended release oral capsule (5 sources) Serotonin and Norepinephrine Reuptake Inhibitor venlafaxine ER (EFFEXOR XR) 75 mg 24 hr capsule venlafaxine ER 75 mg capsule,extended release 24 hr 0 Active take 1 capsule by mouth once ann ly venlafaxine (EFFEXOR XR) 75 MG extended release capsule Take 75 mg by mouth daily 0 Suspended Comment on above: venlafaxine ER 75 mg capsule,extended release 24 hr vilazodone hydrochloride 20 mg oral tablet (17 sources) Start: 04-20-2022 vilazodone ( IBRYD) 20 mg tablet ZOLMitriptan 5 mg/actuat nasal spray (17 sources) Serotonin-1b and Serotonin-1d Receptor Agonist Start: 06-24-2022 ZOLMitriptan (ZOMIG) 5 mg nasal spray Use 1 [place] in the nose as needed at onset of migraine headache. If symptoms persist or return, may repeat dose in other nostril after 2 hours. Maximum of 2 sprays per 24 hours 10 Each 2 06/24/2022 Active Start: 06-24-2022 take 1 spray(s) nasa l route every twenty-four hours as needed ZOLMitriptan (ZOMIG) 5 mg nasal spray Use 1 [place] in the nose as needed. SPRAY IN 1 NOSTRIL AT ONSET OF MIGRAINE HEADACHE. If symptoms persist or return, may repeat dose after 2 hours. Maximum: 5 mg/dose; 10 mg per 24 hours 10 Each 2 06/24/2022 Active Comment on above: Use 1 [place] in the n ose as needed. SPRAY IN 1 NOSTRIL AT ONSET OF MIGRAINE HEADACHE. If symptoms persist or return, may repeat dose after 2 hours. Maximum: 5 mg/dose; 10 mg per 24 hours Use 1 [place] in the n ose as needed at onset of migraine headache. If symptoms persist or return, may repeat dose in other nostril after 2 hours. Maximum of 2 sprays per 24 hours Problems Active Problems Problem Classification Problem Date Documented Da te Episodic/Chronic Anxiety disorders (1 source) Anxiety disorder, unspecified; Translations: [ANXIETY DISORDER UNSPECIFIED] Onset: 06-22-2022 Chronic Asthma (1 source) Unspecified asthma, uncomplicated; Translations: [UNSPECIFIED ASTHMA UNCOMPLICATED] Onset: 06-22-2022 Chronic Coma; stupor; and brain damage (1 source) Somnolence; Translations: [SOMNOLENCE] Onset: 06-22-2022 Episodic E Codes: Fall (1 source) Unspecified fall, initial encounter; Translations: [UNSPECIFIED FALL INITIAL ENCOUNTER] Onset: 05-25-2022 Episodic Endometriosis (1 source) Endometriosis, unspecified; Translations: [ENDOMETRIOSIS UNSPECIFIED] Onset: 08-18-2021 Chronic Epilepsy; convulsions (4 sources) Seizure disorder; Translations: [Epilepsy, unspecified, not intractable, without status epilepticus] Onset: 10-19-2021 Chronic Esophageal disorders (1 source) Gastro-esophageal reflux disease without esophagitis; Translations: [GERD WITHOUT ESOPHAGITIS] Onset: 06-22-2022 Chronic Genitourinary symptoms and ill-defined conditions (1 source) Stress incontinence (female) (male); Translations: [STRESS INCONTINENCE FEMALE MALE] Onset: 07-14-2022 Chronic Genitourinary symptoms and ill-defined conditions (1 source) Painful micturition, unspecified; Translations: [PAINFUL MICTURITION UNSPECIFIED] Onset: 07-14-2022 Episodic Headache; including migraine (20 sources) Migraine; Translations: [Migraine, unspecified, not intractable, without status migrainosus] Onset: 01-07-2022 Chronic Headache; including migraine (1 source) Headache; Translations: [Chronic intractable headache, unspecified headache type] Episodic Headache; including migraine (4 sources) Headache; including migraine; Translations: [HEADACHE UNSPECIFIED] Onset: 06-10-2022 Heart valve disorders (1 source) Nonrheumatic mitral (valve) prolapse; Translations: [NONRHEUMATIC MITRAL VALVE PROLAPSE] Onset: 06-16-2022 Chronic Menstrual disorders (1 source) Dysmenorrhea, unspecified; Translations: [DYSMENORRHEA UNSPECIFIED] Onset: 10-08-2021 Chronic Miscellaneous mental health disorders (20 sources) Dissociative convulsions; Translations: [Conversion disorder with seizures or convulsions] Onset: 10-20-2021 Chronic Mood disorders (2 sources) Bipolar disorder, unspecified; Translations: [Major depressive disorder, single episode, unspecified] Onset: 10-21-2021 Chronic Mood disorders (1 source) Mood disorders; Translations: [DEPRESSION UNSPECIFIED] Onset: 06-22-2022 Nausea and vomiting (10 sources) Nausea; Translations: [Nausea with vomiting, unspecified] Onset: 08-14-2021 Episodic Other aftercare (1 source) Other termite technician (current) drug therapy; Translations: [OTH AIRCRAFT MECHANIC ARMAMENT CURRENT DRUG THERAPY] Onset: 06-22-2022 Episodic Other endocrine disorders (1 source) Polycystic ovarian syndrome; Translations: [POLYCYSTIC OVARIAN SYNDROME] Onset: 06-16-2022 Chronic Other female genital disorders (1 source) Unspecified dyspareunia; Translations: [UNSPECIFIED DYSPAREUNIA] Onset: 07-14-2022 Chronic Other female genital disorders (1 source) Abnormal uterine and vaginal bleeding, unspecified; Translations: [ABNORMAL UTERINE VAGINAL BLEED UNS] Onset: 10-08-2021 Chronic Other gastrointestinal disorders (1 source) Other constipation; Translations: [OTHER CONSTIPATION] Onset: 06-22-2022 Episodic Other injuries and conditions due to external causes (4 sources) Unspecified injury of head, initial encounter; Translations: [UNSPECIFIED INJURY HEAD INITIAL ENC] Onset: 05-23-2022 Episodic Other liver diseases (1 source) Fatty (change of) liver, not elsewhere classified; Translations: [FATTY CHANGE LIVER NEC] Onset: 01-19-2022 Chronic Other nervous system disorders (1 source) Tremor; Translations: [Tremor, unspecified] Episodic Other nutritional; endocrine; and metabolic disorders (1 source) Morbid (severe) obesity due to excess calories; Translations: [MORBID SEVERE OBES D/T EXCESS DAJUAN] Onset: 06-22-2022 Chronic Other nutritional; endocrine; and metabolic disorders (1 source) Body mass index (BMI) 45.0-49.9, adult; Translations: [BODY MASS INDEX BMI 45.0-49.9 ADULT] Onset: 06-22-2022 Chronic Residual codes; unclassified (1 source) Acquired absence of other specified parts of digestive tract; Translations: [ACQ ABSENCE OTH PART DIGESTV TRACT] Onset: 06-22-2022 Episodic Spondylosis; intervertebral disc disorders; other back problems (2 sources) Cervicalgia; Translations: [Neck pain] Onset: 05-25-2022 12-09-2022 Episodic Unclassified (3 sources) LOW BACK PAIN, UNSPECIFIED; Translations: [LOW BACK PAIN, UNSPECIFIED] Onset: 01-19-2022 Unclassified (1 source) CONTACT W/AND (SUSP) EXPOS COVID-19; Translations: [CONTACT W/AND (SUSP) EXPOS COVID-19] Onset: 04-04-2022 Past or Other Problems Problem Classification Problem Date Documented Da te Episodic/Chronic Abdominal pain (6 sources) Unspecified abdominal pain; Translations: [Pelvic and perineal pain] Onset: 08-17-2021 Episodic Contraceptive and procreative management (1 source) Tubal ligation status; Translations: [TUBAL LIGATION STATUS] Onset: 10-08-2021 Episodic Epilepsy; convulsions (20 sources) Neurological finding; Translations: [Unspecified convulsions] Onset: 10-19-2021 Episodic Other gastrointestinal disorders (1 source) Diarrhea, unspecified; Translations: [DIARRHEA UNSPECIFIED] Onset: 10-08-2021 Episodic Other liver diseases (1 source) Hepatomegaly, not elsewhere classified; Translations: [HEPATOMEGALY NEC] Onset: 01-19-2022 Episodic Other nervous system disorders (5 sources) Other acute postprocedural pain; Translations: [OTHER ACUTE POSTPROCEDURAL PAIN] Onset: 10-05-2021 Episodic Residual codes; unclassified (1 source) Acquired absence of both cervix and uterus; Translations: [ACQUIRED ABSENCE BOTH CERVIX AND UTERUS] Onset: 01-19-2022 Episodic Residual codes; unclassified (1 source) Other specified postprocedural states; Translations: [OTH SPECIFIED POSTPROCEDURAL STATES] Onset: 10-08-2021 Episodic Unclassified (1 source) LOW BACK PAIN, UNSPECIFIED; Translations: [LOW BACK PAIN, UNSPECIFIED] Onset: 01-14-2022 Urinary tract infections (1 source) Urinary tract infection, site not specified; Translations: [UTI SITE NOT SPECIFIED] Onset: 08-18-2021 Episodic Results Test Name Value Interpretation Reference Range Patricia Martin 12-13-2022 [facility]ASHIR Telephone ([facility]) CONI NICHOLSON ([id number]) 1995 F Date Time Provider Department 12/13/22 LOGAN BARTH [facility] During your visit today, we recorded the following information about you: Jannette Mcleod RN 12/13/2022 2:10 PM Signed Received approval for Orphenadrine Citrate ER. See attached approval. Scan on 12/13/2022 1:58 PM by Provider, External, PA-C: PA Approval for Orphenadrine Citrate Allergies As of Date: 12/13/2022 Noted Allergy Reaction DIHYDROERGOTAMINE 07/27/2022 5 - Intolerance Comments: Chest tightness, numbness and tingling in bilateral extremities, increased anxiety ADHESIVE TAPE-SILICONES 12/03/2021 2 - Rash AZITHROMYCIN 12/03/2021 14 - Other: See Comments KEFLEX (CEPHALEXIN) 12/03/2021 2 - Rash KEPPRA (LEVETIRACETAM) 11/11/2022 9 - Itching PYRILAMINE-DEXTROMETHORPHAN 01/07/2022 4 - Hives REGLAN (METOCLOPRAMIDE) 12/03/2021 5 - Intolerance VORTIOXETINE 08/06/2021 4 - Hives Date Reviewed: 12/12/2022 Reviewed by: Logan Barth APRN.DOPSTER - Fully Assessed Prescriptions as of 12/13/2022 - orphenadrine ER (NORFLEX) 100 mg tablet Take 1 tablet by mouth two times a day as needed. - keTORolac (TORADOL) 10 mg tablet Take 1 tablet by mouth every 6 hours as needed (severe migraine). - promethazine (PHENERGAN) 12.5 mg tablet Take 1 tablet by mouth every 6 hours as needed. - lithium carbonate 300 mg tablet - magnesium oxide 400 mg magnesium cap magnesium 400 mg (as magnesium oxide) capsule - traZODone (DESYREL) 100 mg tablet - vilazodone (VIIBRYD) 20 mg tablet - ZOLMitriptan (ZOMIG) 5 mg nasal spray Use 1 [place] in the nose as needed at onset of migraine headache. If symptoms persist or return, may repeat dose in other nostril after 2 hours. Maximum of 2 sprays per 24 hours - lamoTRIgine (LAMICTAL) 150 mg tablet - diazePAM (VALIUM) 10 mg tablet Facility-Administered Medications as of 12/13/2022 - onabotulinum toxin type A 200 Units injection (BOTOX) Problem List As Of Date 12/13/2022 Noted Resolved Seizure-like activity (HCC) [R56.9] 04/01/2022 Psychogenic nonepileptic seizure [F44.5] 10/20/2021 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 w*06/24/2022 Encounter Status:[facility] ([id number]) 1995 F Date Time Provider Department 12/13/22 LOGAN BARTH During your visit today, we recorded the following information about you: Mendoza Dooley 12/13/2022 2:27 PM Signed Called patient to schedule for 3 days of Non DHE IV infusions. She started she was currently driving and would call back to schedule Logan Barth APRN.DOPSTER P Headache Infusion Scheduling Pool; P C21 Botox Pool Pls schedule for infusions, and also her next botox treatment - thank you. KG Allergies As of Date: 12/13/2022 Noted Allergy Reaction DIHYDROERGOTAMINE 07/27/2022 5 - Intolerance Comments: Chest tightness, numbness and tingling in bilateral extremities, increased anxiety ADHESIVE TAPE-SILICONES 12/03/2021 2 - Rash AZITHROMYCIN 12/03/2021 14 - Other: See Comments KEFLEX (CEPHALEXIN) 12/03/2021 2 - Rash KEPPRA (LEVETIRACETAM) 11/11/2022 9 - Itching PYRILAMINE-DEXTROMETHORPHAN 01/07/2022 4 - Hives REGLAN (METOCLOPRAMIDE) 12/03/2021 5 - Intolerance VORTIOXETINE 08/06/2021 4 - Hives Date Reviewed: 12/12/2022 Reviewed by: Logan Barth APRN.DOPSTER - Fully Assessed Reason for Visit: Infusion [464] Cmt: HEADACHE INFUSIONS Prescriptions as of 12/13/2022 - orphenadrine ER (NORFLEX) 100 mg tablet Take 1 tablet by mouth two times a day as needed. - keTORolac (TORADOL) 10 mg tablet Take 1 tablet by mouth every 6 hours as needed (severe migraine). - promethazine (PHENERGAN) 12.5 mg tablet Take 1 tablet by mouth every 6 hours as needed. - lithium carbonate 300 mg tablet - magnesium oxide 400 mg magnesium cap magnesium 400 mg (as magnesium oxide) capsule - traZODone (DESYREL) 100 mg tablet - vilazodone (VIIBRYD) 20 mg tablet - ZOLMitriptan (ZOMIG) 5 mg nasal spray Use 1 [place] in the nose as needed at onset of migraine headache. If symptoms persist or return, may repeat dose in other nostril after 2 hours. Maximum of 2 sprays per 24 hours - lamoTRIgine (LAMICTAL) 150 mg tablet - diazePAM (VALIUM) 10 mg tablet Facility-Administered Medications as of 12/13/2022 - onabotulinum toxin type A 200 Units injection (BOTOX) Problem List As Of Date 12/13/2022 Noted Resolved Seizure-like activity (HCC) [R56.9] 04/01/2022 Psychogenic nonepileptic seizure [F44.5] 10/20/2021 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 w*06/24/2022 Encounter Status:Closed by MENDOZA DOOLEY on 12/13/22 [facility] 11-10-2022 [facility] Telephone (NIQ) CONI NICHOLSON ([id number]) 1995 F Date Time Provider Department 11/10/22 SUZAN DRIVER During your visit today, we recorded the following information about you: Bonnie Howard 11/10/2022 8:29 AM Signed NI PHONE Name of caller : Margaret Relationship to patient : Self If not self Will need patient permission to release results or disclose health information with called documented in fyi. Was permission obtained from patient ? Yes Patient identified by Name and Date of . ( Coin Nicholson, 1995). Yes Reason for Call : Other Patient wants to get infusions scheduled. Number to return call [phone] Okay to leave a message ? Yes Last office visit 10/12/22 with [employer] Next office visit Not scheduled. Thank you calling [facility]. You will receive a return call within 48 hours ( or 2 business days if close to the weekend). If you feel that this is an urgent issue and needs immediate attention, it is recommended that you contact your primary care provider office or proceed to your nearest Urgent Care Center of Emergency Room ED for evaluation/treatment. Mendoza Dooley 11/10/2022 9:29 AM Signed PATIENT SCHEDULED FOR TRIAGE AND TENTATIVE INFUSION Allergies As of Date: 11/10/2022 Noted Allergy Reaction DIHYDROERGOTAMINE 07/27/2022 5 - Intolerance Comments: Chest tightness, numbness and tingling in bilateral extremities, increased anxiety ADHESIVE TAPE-SILICONES 12/03/2021 2 - Rash AZITHROMYCIN 12/03/2021 14 - Other: See Comments KEFLEX (CEPHALEXIN) 12/03/2021 2 - Rash PYRILAMINE-DEXTROMETHORPHAN 01/07/2022 4 - Hives REGLAN (METOCLOPRAMIDE) 12/03/2021 5 - Intolerance VORTIOXETINE 08/06/2021 4 - Hives Date Reviewed: 10/12/2022 Reviewed by: Suzan Driver APRN.DOPSTER - Fully Assessed Reason for Visit: Infusion [464] Prescriptions as of 11/10/2022 - chlorzoxazone (PARAFON FORTE DSC) 500 mg tablet Take 1 tablet by mouth up to three times a day as needed, immediately at onset of headache for rescue. - galcanezumab-gnlm (EMGALITY PEN) 120 mg/mL pen Inject 1 mL subcutaneously once every month. Do not shake. - galcanezumab-gnlm 120 mg/mL subcutaneous pen injector (EMGALITY) Inject 2 Pens subcutaneously one time only for 1 dose. For first month only. Refrigerate. Do not shake. - promethazine (PHENERGAN) 12.5 mg tablet Take 1 tablet by mouth every 6 hours as needed. - keTORolac (TORADOL) 10 mg tablet Take 1 tablet by mouth every 6 hours as needed (severe migraine). - lithium carbonate 300 mg tablet - magnesium oxide 400 mg magnesium cap magnesium 400 mg (as magnesium oxide) capsule - traZODone (DESYREL) 100 mg tablet - vilazodone (VIIBRYD) 20 mg tablet - ZOLMitriptan (ZOMIG) 5 mg nasal spray Use 1 [place] in the nose as needed at onset of migraine headache. If symptoms persist or return, may repeat dose in other nostril after 2 hours. Maximum of 2 sprays per 24 hours - lamoTRIgine (LAMICTAL) 150 mg tablet - diazePAM (VALIUM) 10 mg tablet Facility-Administered Medications as of 11/10/2022 - onabotulinum toxin type A 200 Units injection (BOTOX) Problem List As Of Date 11/10/2022 Noted Resolved Seizure-like activity (HCC) [R56.9] 04/01/2022 Psychogenic nonepileptic seizure [F44.5] 10/20/2021 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 w*06/24/2022 Encounter Status:Closed by MENDOZA DOOLEY on 11/10/22 [facility] CNOVon 10-12-2022 CNOV Office Visit ([facility] ) CONI NICHOLSON ([id number]) 1995 F Date Time Provider Department 10/12/22 10:15 AM SUZAN DRIVER [facility] During your visit today, we recorded the following information about you: Pulse Blood pressure Weight Height 91/minute 133/63 108.8 kg 1.549 m Suzan DriverUMANG.DOPSTER 10/12/2022 11:03 AM Addendum AFTER VISIT CARE BOTOX INJECTION While these procedures can be extremely helpful as part of your headache treatment plan, they can irritate the muscles and tissues in your head, neck and shoulders. Proper follow-up care is important to avoid muscle spasms and temporary pain increase within the following 3-5 days after your clinic visit. Here are some tips to help decrease side-effects that may occur and maximize the effectiveness of your pain relief. [email or web address] Download the Chronic Migraine Anatomy Andrzej (by [employer]) to learn more about botox. -HYDRATION Hydration is important to help nourish your muscles and tissues. Drink 60-80 oz of non caffeinated fluid at least for 3 days after your visit. -REST Rest will help avoid further irritation of muscle and tissues. Remember that you need to give your body time to adjust. NO strenuous activity for at least the first 24 hours after your visit. Gentle stretching, yoga, meditation or even swimming is OK and encouraged. -No massages, rubbing around the areas injected or hair appointments for 48 hours. -No laying flat for the remainder of the day until bedtime tonight. Sit up in a recliner if you'd like to rest or sleep. -ICE/HEAT Since these procedures irritate muscles, there can be some swelling. Alternating ice and heat every 3-5 times per day may help decrease this, while also optimizing pain relief Use cool gel packs for ice for 10 min. Use a warm moist towel covered with a dry towel on neck and shoulders. Alternate stretching each side of the neck. -STRETCHING Slow, gentle stretching of the neck and shoulders once every hour is helpful to avoid muscle spasms. -TREAT MUSCLE SPASMS If you are already prescribed a muscle relaxer such as baclofen, tizanidine or flexeril, use as directed. If you do not have one, talk to your provider to find out if this would be safe for you to use. If you are paying out of pocket for Botox go online to Botox Savings Program and see if you qualify for reimbursement. [email or web address].loanDepot/ Return in 3 months for your next Botox Injection. Schedule your appointment when you check out today. Parafon Forte (Chlorzoxazone) - 500 mg Take 1 tablet by mouth immediately at onset of headache, up to three times a day as needed. This is an abortive for headache rescue. This is a muscle relaxer. Do not take any other muscle relaxers or opioids while taking this medication. This medication may make you drowsy. Please do not drive or operate machinery while taking this medication. Suzan Driver APRN.DOPSTER 10/12/2022 11:04 AM Signed New Onabotulinum Toxin A (BotoxTM) for Migraine Indication: Chronic Intractable Migraine Treatment #: 1 Referral Expiration: 09/14/2023 Number of moderate-severe migraine days/month: 15 Number of mild migraine days/month: 0 Number of headache free days/month: 15 (360 headache-free hours) The patient has been assessed for disorders which could contribute to breathing or swallowing difficulty, and there is no contraindication with PREEMPT Botox. There is no documented allergic reaction/hypersensitivity to any botulinum toxin and there is no active infection at proposed injection site. HEADACHE SCORES: Headache Questions 06/24/2022 08/31/2022 09/12/2022 ER visits since last office visit: 8 2 - Hospital stays since last office visit 2 0 - Limited ADLs in the last month: 15 15 - Days headache pain free in the last month: 10 15 - Days per month with ALL of the following symptoms - decreased productivity, light sensitivity and nausea: 15 15 - Initial improvement of headache after botox injection at last visit: Not applicable, I did not have a botox injection at my last visit Not applicable, I did not have a botox injection at my last visit - PRN medication usage in the last month: - 15 - Patient impression of improvement since last visit: Much worse Minimally improved No change HIT-6 06/24/2022 08/08/2022 09/12/2022 HIT-6 78 (Severe impact) 72 (Severe impact) 78 (Severe impact) OMID - 2/7 SCORES 06/24/2022 08/08/2022 09/12/2022 OMID-2 Score 1 2 6 OMID-7 Score - - 21 Migraine Specific QOL - Higher scores indicate better HRQL 06/24/2022 08/08/2022 09/12/2022 Role Function-Restrictive Transformed Score (range: 0-100) 0 0 0 Role Function-Preventive Transformed Score (range: 0-100) 0 20 0 Emotional Function Transformed Score (range: 0-100) 0 40 0 PHQ-9 06/24/2022 (more content not included)... Normal [facility] CNPNon 09-29-2022 CNPN Telephone ([facility]) CONI NICHOLSON ([id number]) 1995 F Date Time Provider Department 09/29/22 ANGELY COTTON [facility] During your visit today, we recorded the following information about you: Angely Cotton RN 09/29/2022 11:55 AM Signed [facility] received prescription(s) for Zomig 5MG nasal spray . Benefits investigation was conducted, indicating that a prior authorization is required. PA was initiated and pending review through [employer]. All pertinent clinical information was submitted to insurance. CM Cohen: [id number] Ordering Provider: Logan Barth APRN.DOPSTER Angely Cotton RN [facility] P: , F: Angely Cotton RN 10/07/2022 3:17 PM Signed Ambulatory Pharmacy Prior Authorization Note Provider Intervention Required?: No- Pharmacy completed on your behalf. Rx Plan: Medicaid MCO ([facility] Drug: Zomig 5MG nasal spray Cover My Meds Cohen: [id number] Determination: Approved Prior Authorization/Case #: n/a Prior Authorization Expiration: 03/27/23 Time to PA Submission in CMM: 15 min Time to PA Determination in CMM: Same day Additional Information: PLEASE NOTE: Pt will need follow up office visit to review/document efficacy and tolerability of treatment before prior auth expiration. Please ensure a future follow up appt is scheduled with your patient. This will ensure no interruption in patient's ability to obtain medication refills. Prescriptions will now be processed through [facility] for determination of next steps. For questions relating to this submission, please contact [facility] at [phone] Allergies As of Date: 09/29/2022 Noted Allergy Reaction DIHYDROERGOTAMINE 07/27/2022 5 - Intolerance Comments: Chest tightness, numbness and tingling in bilateral extremities, increased anxiety ADHESIVE TAPE-SILICONES 12/03/2021 2 - Rash AZITHROMYCIN 12/03/2021 14 - Other: See Comments KEFLEX (CEPHALEXIN) 12/03/2021 2 - Rash PYRILAMINE-DEXTROMETHORPHAN 01/07/2022 4 - Hives REGLAN (METOCLOPRAMIDE) 12/03/2021 5 - Intolerance VORTIOXETINE 08/06/2021 4 - Hives Date Reviewed: 09/12/2022 Reviewed by: Logan Barth APRN.DOPSTER - Fully Assessed Reason for Visit: Insurance Authorization [1693] Cmt: Zomig 5MG nasal spray Prescriptions as of 10/07/2022 - galcanezumab-gnlm (EMGALITY PEN) 120 mg/mL pen Inject 1 mL subcutaneously once every month. Do not shake. - galcanezumab-gnlm 120 mg/mL subcutaneous pen injector (EMGALITY) Inject 2 Pens subcutaneously one time only for 1 dose. For first month only. Refrigerate. Do not shake. - methocarbamol (ROBAXIN) 500 mg tablet Take 1 tablet by mouth twice daily. - promethazine (PHENERGAN) 12.5 mg tablet Take 1 tablet by mouth every 6 hours as needed. - keTORolac (TORADOL) 10 mg tablet Take 1 tablet by mouth every 6 hours as needed (severe migraine). - lithium carbonate 300 mg tablet - magnesium oxide 400 mg magnesium cap magnesium 400 mg (as magnesium oxide) capsule - traZODone (DESYREL) 100 mg tablet - vilazodone (VIIBRYD) 20 mg tablet - ZOLMitriptan (ZOMIG) 5 mg nasal spray Use 1 [place] in the nose as needed at onset of migraine headache. If symptoms persist or return, may repeat dose in other nostril after 2 hours. Maximum of 2 sprays per 24 hours - lamoTRIgine (LAMICTAL) 150 mg tablet - diazePAM (VALIUM) 10 mg tablet Problem List As Of Date 09/29/2022 Noted Resolved Seizure-like activity (HCC) [R56.9] 04/01/2022 Psychogenic nonepileptic seizure [F44.5] 10/20/2021 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 w*06/24/2022 Encounter Status:Closed by ANGELY COTTON on 10/07/22 [facility] 09[facility]13-20[facility] CONI NICHOLSON ([id number]) 1995 F Date Time Provider Department 09/13/22 LOGAN BARTH [facility] During your visit today, we recorded the following information about you: Enedina Tsai RN 09/13/2022 1:31 PM Signed Botox referral sent to pharmacy. PRATIBHA Graham Latonda 09/14/2022 2:43 PM Signed Patient has been scheduled. Allergies As of Date: 09/13/2022 Noted Allergy Reaction DIHYDROERGOTAMINE 07/27/2022 5 - Intolerance Comments: Chest tightness, numbness and tingling in bilateral extremities, increased anxiety ADHESIVE TAPE-SILICONES 12/03/2021 2 - Rash AZITHROMYCIN 12/03/2021 14 - Other: See Comments KEFLEX (CEPHALEXIN) 12/03/2021 2 - Rash PYRILAMINE-DEXTROMETHORPHAN 01/07/2022 4 - Hives REGLAN (METOCLOPRAMIDE) 12/03/2021 5 - Intolerance VORTIOXETINE 08/06/2021 4 - Hives Date Reviewed: 09/12/2022 Reviewed by: Logan Barth APRN.DOPSTER - Fully Assessed Reason for Visit: Referral Request [124] Prescriptions as of 09/14/2022 - methocarbamol (ROBAXIN) 500 mg tablet Take 1 tablet by mouth twice daily. - promethazine (PHENERGAN) 12.5 mg tablet Take 1 tablet by mouth every 6 hours as needed. - keTORolac (TORADOL) 10 mg tablet Take 1 tablet by mouth every 6 hours as needed (severe migraine). - lithium carbonate 300 mg tablet - magnesium oxide 400 mg magnesium cap magnesium 400 mg (as magnesium oxide) capsule - traZODone (DESYREL) 100 mg tablet - vilazodone (VIIBRYD) 20 mg tablet - ZOLMitriptan (ZOMIG) 5 mg nasal spray Use 1 [place] in the nose as needed. SPRAY IN 1 NOSTRIL AT ONSET OF MIGRAINE HEADACHE. If symptoms persist or return, may repeat dose after 2 hours. Maximum: 5 mg/dose; 10 mg per 24 hours - lamoTRIgine (LAMICTAL) 150 mg tablet - diazePAM (VALIUM) 10 mg tablet Problem List As Of Date 09/13/2022 Noted Resolved Seizure-like activity (HCC) [R56.9] 04/01/2022 Psychogenic nonepileptic seizure [F44.5] 10/20/2021 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 w*06/24/2022 Encounter Status:Closed by ENEDINA TSAI on 09/13/22 [facility] CNCOon 09-08-2022 [facility]CO Letter Text [facility] CNPNon 07-05-2022 [facility] Telephone ([facility]) CONI NICHOLSON ([id number]) 1995 F Date Time Provider Department 07/05/22 ANGELY COTTON[facility]RX During your visit today, we recorded the following information about you: Angely Cotton RN 07/05/2022 1:18 PM Signed [facility] received prescription(s) for Emgality 120MG/ML auto-injectors (migraine) . Benefits investigation was conducted, indicating that a prior authorization is required. PA was initiated and pending review through [employer]. All pertinent clinical information was submitted to insurance. CMM Cohen: [id number] Ordering Provider: GABBI Johnston Alisha, RN [facility] P: , F: Angely Cotton RN 07/11/2022 12:55 PM Signed Ambulatory Pharmacy Prior Authorization Note Provider Intervention Required?: No- Pharmacy completed on your behalf. Rx Plan: Medicaid MCO ([facility]) Drug: Emgality 120MG/ML auto-injectors (migraine) Cover My Meds Cohen: [id number] Determination: Denied PA Denied because: Step therapy requirement Prior Authorization/Case #: n/a Prior Authorization Expiration: n/a Time to PA Submission in CMM: 15 min Time to PA Determination in CMM: 1 day Additional Information: Full letter scanned into chart for reference, please review letter for full details. No further action by [facility] for now and existing order to be profiled. Angely Cotton RN [facility] P: , F: For questions relating to this submission, please contact [facility] at [phone] Logan Barth APRN.CNP 07/20/2022 12:44 PM Signed She will have follow up visit after infusions, will discuss alternative treatment options at visit. Logan Barth APRN.Sylvia Mcwilliams 08/29/2022 12:12 PM Signed Patient saw Dr. Wharton 08/08/2022, are we able to use these notes to appeal? Tamiko Riggs RN 08/30/2022 11:[address] Wharton' notes have no information or info needed for an appeal so this cannot be used. PRATIBHA Benson [place] 08/30/2022 2:45 PM Signed I did schedule patient for 08/31/2022 as backup, so those notes can be used. Thank you. Logan Barth APRN.CNP 08/31/2022 4:49 PM Addendum I saw her today. Please use my note to appeal. Thanks, Logan Barth APRN.Tamiko Colin RN 09/08/2022 2:57 PM Signed Appeal letter sent. Tamiko Riggs RN Dinorah Sofia 09/26/2022 3:34 PM Signed Recall letter placed. Uploaded to chart via [employer]. PLEASE SEND NEW RX TO PHARMACY FOR PROCESSING. Logan Barth APRN.CNP 09/27/2022 11:34 AM Signed The following approved medication requests have been transmitted electronically. Requested Prescriptions Signed Prescriptions Disp Refills galcanezumab-gnlm (EMGALITY PEN) 120 mg/mL pen 1 Each 11 Sig: Inject 1 mL subcutaneously once every month. Do not shake. Authorizing Provider: LOGAN BARTH APRN.CNP Green, Koli, APRN.CNP 09/27/2022 11:35 AM Signed Addended by: LOGAN BARTH on: 09/27/2022 11:35 AM Modules accepted: Orders Logan Barth APRN.CNP 09/27/2022 11:37 AM Signed The following approved medication requests have been transmitted electronically. Requested Prescriptions Signed Prescriptions Disp Refills galcanezumab-gnlm (EMGALITY PEN) 120 mg/mL pen 1 Each 11 Sig: Inject 1 mL subcutaneously once every month. Do not shake. Authorizing Provider: LOGAN BARTH galcanezumab-gnlm 120 mg/mL subcutaneous pen injector (EMGALITY) 2 Each 0 Sig: Inject 2 Pens subcutaneously one time only for 1 dose. For first month only. Refrigerate. Do not shake. Authorizing Provider: LOGAN BARTH APRN.CNP Green, Koli, APRN.CNP 09/27/2022 11:37 AM Signed Addended by: LOGAN BARTH on: 09/27/2022 11:37 AM Modules accepted: Orders Allergies As of Date: 07/05/2022 Noted Allergy Reaction ADHESIVE TAPE-SILICONES 12/03/2021 2 - Rash AZITHROMYCIN 12/03/2021 14 - Other: See Comments KEFLEX (CEPHALEXIN) 12/03/2021 2 - Rash PYRILAMINE-DEXTROMETHORPHAN 01/07/2022 4 - Hives REGLAN (METOCLOPRAMIDE) 12/03/2021 5 - Intolerance VORTIOXETINE 08/06/2021 4 - Hives Date Reviewed: 06/24/2022 Reviewed by: Logan Barth APRN.CNP - Fully Assessed Reason for Visit: Insurance Authorization [[id number]] Cmt: Emgality 120MG/ML auto-injectors (migraine) Order(s):Order #: [id number] Order #: [id number] Prescriptions as of 09/27/2022 - galcanezumab-gnlm (EMGALITY PEN) 120 mg/mL pen Inject 1 mL subcutaneously once every month. Do not shake. - galcanezumab-gnlm 120 mg/mL subcutaneous pen injector (EMGALITY) Inject 2 Pens subcutaneously one time only for 1 dose. For first month only. Refrigerate. Do not shake. - methocarbamol (ROBAXIN) 500 mg tablet Take 1 tablet by mouth twice daily. - prometh (more content not included)... Normal [facility] Veronica 06-27-2022 BASHIR Telephone (NIQ) MARGARET NICHOLSON ([id number]) 1995 F Date Time Provider Department 06/27/22 LOGAN BARTH During your visit today, we recorded the following information about you: Mendoza Dooley 06/27/2022 3:00 PM Signed Spoke to patient about scheduling infusions. Patient would like to callback once she can figure out transportation. Logan Barth APRN.FADY P Headache Infusion Scheduling Pool Please sched for infusions - therapy plan placed. GABBI Johnston 06/29/2022 11:55 AM Signed Patient is scheduled for 3 days of IV Infusions. Allergies As of Date: 06/27/2022 Noted Allergy Reaction ADHESIVE TAPE-SILICONES 12/03/2021 2 - Rash AZITHROMYCIN 12/03/2021 14 - Other: See Comments KEFLEX (CEPHALEXIN) 12/03/2021 2 - Rash PYRILAMINE-DEXTROMETHORPHAN 01/07/2022 4 - Hives REGLAN (METOCLOPRAMIDE) 12/03/2021 5 - Intolerance VORTIOXETINE 08/06/2021 4 - Hives Date Reviewed: 06/24/2022 Reviewed by: Logan Barth APRN.DOPSTER - Fully Assessed Reason for Visit: Appointment [186] Cmt: infusion Prescriptions as of 06/29/2022 - lithium carbonate 300 mg tablet - magnesium oxide 400 mg magnesium cap magnesium 400 mg (as magnesium oxide) capsule - promethazine (PHENERGAN) 12.5 mg tablet Take 12.5 mg by mouth every 6 hours as needed. - traZODone (DESYREL) 100 mg tablet - vilazodone (VIIBRYD) 20 mg tablet - galcanezumab-gnlm (EMGALITY PEN) 120 mg/mL pen Inject 1 mL subcutaneously once every month. Do not shake. - galcanezumab-gnlm 120 mg/mL subcutaneous pen injector (EMGALITY) Inject 2 Pens subcutaneously one time only for 1 dose. For first month only. Refrigerate. Do not shake. - ZOLMitriptan (ZOMIG) 5 mg nasal spray Use 1 [place] in the nose as needed. SPRAY IN 1 NOSTRIL AT ONSET OF MIGRAINE HEADACHE. If symptoms persist or return, may repeat dose after 2 hours. Maximum: 5 mg/dose; 10 mg per 24 hours - lamoTRIgine (LAMICTAL) 150 mg tablet - diazePAM (VALIUM) 10 mg tablet - baclofen (LIORESAL) 10 mg tablet Problem List As Of Date 06/27/2022 Noted Resolved Seizure-like activity (HCC) [R56.9] 04/01/2022 Psychogenic nonepileptic seizure [F44.5] 10/20/2021 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 w*06/24/2022 Encounter Status:Closed by MENDOZA DOOLEY on 06/27/22 Normal [facility] BLOOD GASES BTYon 06-20-2022 02 MODE ROOM AIR Normal [facility] Comment on above: Performed By: #### B MP #### [facility] [address] [place] [address] Dr. Ibis Jimenez ALLENS TEST Positive Normal [facility] Comment on above: Performed By: #### B MP #### [facility] [address] [place] [address] Dr. Ibis Jimenez Base excess Calc (Bld) [Moles/Vol] -1.6000 mmol/L Normal -2.0-2.0 [facility] Comment on above: Performed By: #### B MP #### [facility] [address] [place] [address] Dr. Ibis Jimenez BIPAP PRESSURE Normal [facility] Comment on above: Performed By: #### B MP #### [facility] [address] [place] [address] Dr. Ibis Jimenez CPAP Normal [facility] Comment on above: Performed By: #### B MP #### [facility] [address] [address] [address] Ibis Jimenez FIO2 Normal [facility] Comment on above: Performed By: #### B MP #### [facility] [address] [place] [address] Dr. Ibis Jimenez HCO3 (Bld) [Moles/Vol] 23.8 mmol/L Normal 22.0-26.0 [facility] Comment on above: Performed By: #### B MP #### [facility] [address] [place] [address] Dr. Ibis iJmenez LPM Normal [facility] Comment on above: Performed By: #### B MP #### [facility] [address] [place] [address] Dr. Ibis Jimenez MINUTE VOLUME Normal [facility] Comment on above: Performed By: #### B MP #### [facility] [address] [place] [address] Dr. Ibis Jimenez Oxygen (Bld) [Partial pressure] 75.5 mm[Hg] Critically low 80.0-100.0 [facility] Comment on above: Performed By: #### B MP #### [facility] [address] [place] [address] Dr. Ibis Jimenez Oxygen saturation in Blood 95.8 % Normal 95.0-100. 0 [facility] Comment on above: Performed By: #### B MP #### [facility] [address] [place] [address] Dr. Ibis Jimenez PCO2 41.8 mmHg Normal 35.0-45.0 [facility] Comment on above: Performed By: #### B MP #### [facility] [address] [place] [address] Dr. Ibis Jimeenz PEEP Normal [facility] Comment on above: Performed By: #### B MP #### [facility] [address] [place] [address] Dr. Ibis Jimenez pH (Bld) 7.363 [pH] Normal 7.350-7.450 [facility] Comment on above: Performed By: #### B MP #### [facility] [address] [place] [address] Dr. Ibis Jimenez PIP Normal [facility] Comment on above: Performed By: #### B MP #### [facility] [address] [place] [address] Dr. Ibis Jimenez PS Normal [facility] Comment on above: Performed By: #### B MP #### [facility] [address] [place] [address] Dr. Ibis Jimenez PUNCTURE SITE LR Normal [facility] Comment on above: Performed By: #### B MP #### [facility] [address] [place] [address] Dr. Ibis Jimenez RATE Normal [facility] Comment on above: Performed By: #### B MP #### [facility] [address] [place] [address] Dr. Ibis Jimenez VENT MODE Normal [facility] Comment on above: Performed By: #### B MP #### [facility] [address] [place] [address] Dr. Ibis Jimenez VT Normal [facility] Comment on above: Performed By: #### B MP #### [facility] [address] [place] [address] Dr. Ibis Jimenez CBC AUTO DIFFon 06-20-2022 BASO # 0.0 103/ul Normal 0.0-0.1 [facility] Comment on above: Performed By: #### A CET, SALYC #### [facility] [address] [place] [address] Dr. Ibis Jimenez Basophils/100 WBC (Bld) 0.5 % Normal 0.2-2.0 [facility] Comment on above: Performed By: #### A CET, SALYC #### [facility] [address] [place] [address] Dr. Ibis Jimenez EO # 0.3 103/ul Normal 0.0-0.7 [facility] Comment on above: Performed By: #### A CET, SALYC #### [facility] [address] [place] [address] Dr. Ibis Jimenez Eosinophils/100 WBC (Bld) 4.2 % Normal 0.9-7.0 [facility] Comment on above: Performed By: #### A CET, SALYC #### [facility] [address] [place] [address] Dr. Ibis Jimenez Erythrocyte distribution wid th (RBC) [Ratio] 13.2 % Normal 11.0-15.0 [facility] Comment on above: Performed By: #### A CET, SALYC #### [facility] [address] [place] [address] Dr. Ibis Jimenez Hematocrit (Bld) [Volume fraction] 36.5 % Normal 3 6.0-48.0 [facility] Comment on above: Performed By: #### A CET, SALYC #### [facility] [address] [place] [address] Dr. Ibis Jimenez Hemoglobin (Bld) [Mass/Vol] 11.7 g/dL Critically low 12.0 -16.0 [facility] Comment on above: Performed By: #### A CET, SALYC #### [facility] [address] [address] [address] Ibis Jimenez IG # 0.05 10e3/ul Critically high 0.00-0.03 [facility] Comment on above: Performed By: #### A CET, SALYC #### [facility] [address] [address] [address] Ibis Jimenez IG % 0.8 % Critically high 0.0-0.5 [facility] Comment on above: Performed By: #### A CET, SALYC #### [facility] [address] [address] [address] Ibis Jimenez LYMPH # 1.7 103/ul Normal 1.2-3.8 [facility] Comment on above: Performed By: #### A CET, SALYC #### [facility] [address] [place] [address] Dr. Ibis Jimenez Lymphocytes/100 WBC (Bld) 26.9 % Normal 20.5-60.0 [facility] Comment on above: Performed By: #### A CET, SALYC #### [facility] [address] [place] [address] Dr. Ibis Jimenez MANUAL DIFF REQ NO Normal [facility] Comment on above: Performed By: #### A CET, SALYC #### [facility] [address] [place] [address] Dr. Ibis Jimenez MCH (RBC) [Entitic mass] 28.7 pg Normal 26.7-34.0 [facility] Comment on above: Performed By: #### A CET, SALYC #### [facility] [address] [place] [address] Dr. Ibis Jimenez MCHC (RBC) [Mass/Vol] 32.1 g/dL Normal 29.9-35.2 [facility] Comment on above: Performed By: #### A CET, SALYC #### [facility] [address] [place] [address] Dr. Ibis Jimenez MCV (RBC) [Entitic vol] 89.7 fL Normal 81.0-99.0 [facility] Comment on above: Performed By: #### A CET, SALYC #### [facility] [address] [place] [address] Dr. Ibis Jimenez MONO # 0.6 103/ul Normal 0.3-0.8 [facility] Comment on above: Performed By: #### A CET, SALYC #### [facility] [address] [place] [address] Dr. Ibis Jimenez Monocytes/100 WBC (Bld) 8.9 % Normal 1.7-12.0 [facility] Comment on above: Performed By: #### A CET, SALYC #### [facility] [address] [place] [address] Dr. Ibis Jimenez NEUT # 3.8 103/ul Normal 1.4-6.5 [facility] Comment on above: Performed By: #### A CET, SALYC #### [facility] [address] [place] [address] Dr. Ibis Jimenez Neutrophils/100 WBC (Bld) 58.7 % Normal 43.0-75.0 [facility] Comment on above: Performed By: #### A CET, SALYC #### [facility] [address] [place] [address] Dr. Ibis Jimenez Platelet mean volume (Bld) [Entitic vol] 9.3 fL Critically low 9.5-13.5 [facility] Comment on above: Performed By: #### A CET, SALYC #### [facility] [address] [place] [address] Dr. Ibis Jimenez PLT 188 103/ul Normal 150-450 [facility] Comment on above: Performed By: #### A CET, SALYC #### [facility] [address] [place] [address] Dr. Ibis Jimenez RBC 4.07 106/ul Critically low 4.20-5.40 [facility] Comment on above: Performed By: #### A CET, SALYC #### [facility] [address] [place] [address] Dr. Ibis Jimenez WBC 6.4 103/ul Normal 4.0-11.0 [facility] Comment on above: Performed By: #### A BEE DAVISYC #### [facility] [address] [place] [address] Dr. Ibis Jimenez DRUG SCREEN RAPID (URINE)on 06-20-2022 AMP Negative Normal NEGATIVE [facility] Comment on above: Performed By: #### B MP #### [facility] [address] [place] [address] Dr. Ibis Jimenez BAR Positive Abnormal NEGATIVE [facility] Comment on above: Performed By: #### B MP #### [facility] [address] [place] [address] Dr. Ibis Jimenez BUP Negative Normal NEGATIVE [facility] Comment on above: Performed By: #### B MP #### [facility] [address] [place] [address] Dr. Ibis Jimenez BZO Positive Abnormal NEGATIVE [facility] Comment on above: Performed By: #### B MP #### [facility] [address] [place] [address] Dr. Ibis Jimenez SEMAJ Negative Normal NEGATIVE [facility] Comment on above: Performed By: #### B MP #### [facility] [address] [place] [address] Dr. Ibis Jimenez CUT-OFFS SEE BELOW Normal [facility] Comment on above: Result Comment: AMP (Amphetamine): 500ng/mL, BAR (Barbituates): 200 ng/mL, BZO (Benzodiazepines): 150 ng/mL, BUP (Buprenorphine): 10 ng/mL, SEMAJ (Cocaine): 150 ng/mL, mAMP (Methamphetamine): 500 ng/mL, MTD (Methadone): 200 ng/mL, OPI (Opiates): 100 ng/mL, OXY (Oxycodone): 100 ng/mL, PCP (Phencyclidine): 25 ng/mL, PPX (Propoxyphene): 300 ng/mL, THC (Cannabinoids): 50 ng/mL, TCA (Trycyclic Antidepressants): 300 ng/mL Performed By: #### B MP #### [facility] [address] [place] [address] Dr. Ibis Jimenez DRUG CUT HEADER DRUG CLASS TEST SYST EM CUT-OFF CONCENTRATIONS ARE FOLLOWS: Normal [facility] Comment on above: Performed By: #### B MP #### [facility] [address] [place] [address] Dr. Ibis Jimenez mAMP Negative Normal NEGATIVE [facility] Comment on above: Performed By: #### B MP #### [facility] [address] [place] [address] Dr. Ibis Jimenez MTD Negative Normal NEGATIVE [facility] Comment on above: Performed By: #### B MP #### [facility] [address] [place] [address] Dr. Ibis Jimenez OPI Negative Normal NEGATIVE [facility] Comment on above: Performed By: #### B MP #### [facility] [address] [place] [address] Dr. Ibis Jimenez OXY Negative Normal NEGATIVE [facility] Comment on above: Performed By: #### B MP #### [facility] [address] [place] [address] Dr. Ibis Jimenez PCP Negative Normal NEGATIVE [facility] Comment on above: Performed By: #### B MP #### [facility] [address] [place] [address] Dr. Ibis Jimenez PPX Negative Normal NEGATIVE [facility] Comment on above: Performed By: #### B MP #### [facility] [address] [place] [address] Dr. Ibis Jimenez TCA Positive Abnormal NEGATIVE [facility] Comment on above: Performed By: #### B MP #### [facility] [address] [place] [address] Dr. Ibis Jimenez THC Positive Abnormal NEGATIVE [facility] Comment on above: Performed By: #### B MP #### [facility] [address] [place] [address] Dr. Ibis Jimenez ER URINE PROFILEon 3 Bilirubin Ql (U) Negative Normal NEGATIVE [facility] Comment on above: Performed By: #### A CET, SALYC #### [facility] [address] [place] [address] Dr. Ibis Jimenez Clarity (U) CLEAR Normal CLEAR [facility] Comment on above: Performed By: #### A CET, SALYC #### [facility] [address] [place] [address] Dr. Ibis Jimenez Color (U) YELLOW Normal YELLOW [facility] Comment on above: Performed By: #### A CET, SALYC #### [facility] [address] [place] [address] Dr. Ibis RODRIGUEZ A micrscopic examina tion will be performed if indicated. Normal [facility] l Comment on above: Performed By: #### A CET, SALYC #### [facility] [address] [place] [address] Dr. Ibis Jimenez Glucose Ql (U) Negative Normal NEGATIVE [facility] Comment on above: Performed By: #### A CET, SALYC #### [facility] [address] [place] [address] Dr. Ibis Jimenez Hemoglobin Ql (U) Negative Normal NEGATIVE [facility] Comment on above: Performed By: #### A CET, SALYC #### [facility] [address] [place] [address] Dr. Ibis Jimenez Ketones Ql (U) Negative Normal NEGATIVE [facility] Comment on above: Performed By: #### A CET, SALYC #### [facility] [address] [place] [address] Dr. Ibis Jimenez LEUKOCYTES Negative Normal NEGATIVE [facility] Comment on above: Performed By: #### A CET, SALYC #### [facility] [address] [place] [address] Dr. Ibis Jimenez Nitrite Ql (U) Negative Normal NEGATIVE [facility] Comment on above: Performed By: #### A CET, SALYC #### [facility] [address] [place], [place] [id number] Dr. Ibis Jimenez pH (U) 5.0 [pH] Normal 5-9 [facility] Comment on above: Performed By: #### A CET, SALYC #### [facility] [address] [place] [address] Dr. Ibis Jimenez SPEC GRAVITY >=1.030 Abnormal 1.005-<=1.025 [facility] Comment on above: Performed By: #### A CET, SALYC #### [facility] [address] [place] [address] Dr. Ibis Jimenez UA PROTEIN Negative Normal NEGATIVE/ TRACE [facility] Comment on above: Performed By: #### A CET, SALYC #### [facility] [address] [place] [address] Dr. Ibis Jimenez UR MICRO IND NOT INDICATED Normal [facility] Comment on above: Performed By: #### A CET, SALYC #### [facility] [address] [place] [address] Dr. Ibis Jimenez Urobilinogen Qn (U) 0.2 {Dinorah'U}/dL Normal 0.2 - 1. 0 [facility] Comment on above: Performed By: #### A CET, SALYC #### [facility] [address] [place] [address] Dr. Ibis Jimenez PROF CHEM 8 (BAS METB)on Anion gap [Moles/Vol] 13.1 mmol/L Normal [facility] Comment on above: Performed By: #### M DAVID #### [facility] [address] [place] [address] Dr. Ibis Jimenez Calcium [Mass/Vol] 8.3 mg/dL Critically low 8.5-10.1 [facility] Comment on above: Performed By: #### M DAVID #### [facility] [address] [place] [address] Dr. Ibis Jimenez Chloride [Moles/Vol] 109 mmol/L Critically high 98-107 [facility] Comment on above: Performed By: #### M DAVID #### [facility] [address] [address] [address] Ibis Jimenez CO2 [Moles/Vol] 25.7 mmol/L Normal 21.0-32.0 [facility] Comment on above: Performed By: #### M DAVID #### [facility] [address] [address] [address] Ibis Jimenez Creatinine [Mass/Vol] 0.82 mg/dL Normal 0.55-1.02 [facility] Comment on above: Performed By: #### M DAVID #### [facility] [address] [address] [address] Ibis Jimenez EGFR-AF [facility] LUCIAN >60 Normal >=60 [facility] Comment on above: Performed By: #### M DAVID #### [facility] [address] [address] [address] Ibis Jimenez EGFR-NON AF [facility]CI[facility] >60 Normal >=60 [facility] Comment on above: Performed By: #### M DAVID #### [facility] [address] [address] [address] Ibis Jimenez Glucose [Mass/Vol] 95 mg/dL Normal 74-106 [facility] Comment on above: Performed By: #### M DAVID #### [facility] [address] [address] [address] Ibis Jimenez Potassium [Moles/Vol] 3.8 mmol/L Normal 3.5-5.1 [facility] Comment on above: Performed By: #### M DAVID #### [facility] [address] [address] [address] Ibis Jimenez Sodium [Moles/Vol] 144 mmol/L Normal 136-145 [facility] Comment on above: Performed By: #### M DAVID #### [facility] [address] [address] [address] Ibis Jimenez Urea nitrogen [Mass/Vol] 16.0 mg/dL Normal 7.0-18.0 [facility] Comment on above: Performed By: #### M DAVID #### [facility] [address] [address] [address] Ibis Jimenez Urea nitrogen/Creatinine [Mass ratio] 19.5 mg/mg Normal [facility] Comment on above: Performed By: #### M DAVID #### [facility] [address] [place] [address] Dr. Ibis Jimenez ACETAMINOPHENon 06-19-2022 Acetaminophen [Mass/Vol] ug/mL Critically low 10.0-30 .0 [facility] Comment on above: Performed By: #### A CET, SALYC #### [facility] [address] [place] [address] Dr. Ibis Jimenez DRUG SCREEN RAPID (URINE)on 06-19-2022 AMP Negative Normal NEGATIVE [facility] Comment on above: Performed By: #### M DAVID #### [facility] [address] [place] [address] Dr. Ibis Jimenez BAR Positive Abnormal NEGATIVE [facility] Comment on above: Performed By: #### M DAVID #### [facility] [address] [place] [address] Dr. Ibis Jimenez BUP Negative Normal NEGATIVE [facility] Comment on above: Performed By: #### M DAVID #### [facility] [address] [place] [address] Dr. Ibis Jimenez BZO Positive Abnormal NEGATIVE [facility] Comment on above: Performed By: #### M DAVID #### [facility] [address] [place] [address] Dr. Ibis Jimenez SEMAJ Negative Normal NEGATIVE [facility] Comment on above: Performed By: #### M DAVID #### [facility] [address] [place] [address] Dr. Ibis Jimenez CUT-OFFS SEE BELOW Normal [facility] Comment on above: Result Comment: AMP (Amphetamine): 500ng/mL, BAR (Barbituates): 200 ng/mL, BZO (Benzodiazepines): 150 ng/mL, BUP (Buprenorphine): 10 ng/mL, SEMAJ (Cocaine): 150 ng/mL, mAMP (Methamphetamine): 500 ng/mL, MTD (Methadone): 200 ng/mL, OPI (Opiates): 100 ng/mL, OXY (Oxycodone): 100 ng/mL, PCP (Phencyclidine): 25 ng/mL, PPX (Propoxyphene): 300 ng/mL, THC (Cannabinoids): 50 ng/mL, TCA (Trycyclic Antidepressants): 300 ng/mL Performed By: #### M DAVID #### [facility] [address] [place] [address] Dr. Ibis Jimenez DRUG CUT HEADER DRUG CLASS TEST SYST EM CUT-OFF CONCENTRATIONS ARE FOLLOWS: Normal [facility] Comment on above: Performed By: #### M DAVID #### [facility] [address] [place] [address] Dr. Ibis Jimenez mAMP Negative Normal NEGATIVE [facility] Comment on above: Performed By: #### M DAVID #### [facility] [address] [place] [address] Dr. Ibis Jimenez MTD Negative Normal NEGATIVE [facility] Comment on above: Performed By: #### M DAVID #### [facility] [address] [place] [address] Dr. Ibis Jimenez OPI Positive Abnormal NEGATIVE [facility] Comment on above: Performed By: #### M DAVID #### [facility] [address] [place] [address] Dr. Ibis Jimenez OXY Negative Normal NEGATIVE [facility] Comment on above: Performed By: #### M DAVID #### [facility] [address] [place] [address] Dr. Ibis Jimenez PCP Negative Normal NEGATIVE [facility] Comment on above: Performed By: #### M DAVID #### [facility] [address] [place] [address] Dr. Ibis Jimenez PPX Negative Normal NEGATIVE [facility] Comment on above: Performed By: #### M DAVID #### [facility] [address] [place] [address] Dr. Ibis Jimenez TCA Negative Normal NEGATIVE [facility] Comment on above: Performed By: #### M DAVID #### [facility] [address] [place] [address] Dr. Ibis Jimenez THC Positive Abnormal NEGATIVE [facility] Comment on above: Performed By: #### M DAVID #### [facility] [address] [place] [address] Dr. Ibis Jimenez ER URINE PROFILEon 3 Bilirubin Ql (U) Negative Normal NEGATIVE The [facility] Comment on above: Performed By: #### M DAVID #### [facility] [address] [place] [address] Dr. Ibis Jimenez Clarity (U) CLEAR Normal CLEAR [facility] Comment on above: Performed By: #### M DAVID #### [facility] [address] [place] [address] Dr. Ibis Jimenez Color (U) YELLOW Normal YELLOW The [facility] Comment on above: Performed By: #### M DAVID #### [facility] [address] [place] [address] Dr. Ibis Jimenez ERUAHD A micrscopic examina tion will be performed if indicated. Normal The [facility] l Comment on above: Performed By: #### M DAVID #### [facility] [address] [place] [address] Dr. Ibis Jimenez Glucose Ql (U) Negative Normal NEGATIVE The [facility] Comment on above: Performed By: #### M DAVID #### [facility] [address] [place] [address] Dr. Ibis Jimenez Hemoglobin Ql (U) TRACE-INTACT Abnormal NEGATIVE The [facility] Comment on above: Performed By: #### M DAVID #### [facility] [address] [place] [address] Dr. Ibis Jimenez Ketones Ql (U) Negative Normal NEGATIVE [facility] Comment on above: Performed By: #### M DAVID #### [facility] [address] [place] [address] Dr. Ibis Jimenez LEUKOCYTES Negative [facility]IVE [facility] Comment on above: Performed By: #### M DAVID #### [facility] [address] [address] [address] Ibis Jimenez Nitrite Ql (U) Negative Normal NEGATIVE The [facility] Comment on above: Performed By: #### M DAVID #### [facility] [address] [address] [address] Ibis Jimenez pH (U) 6.0 [pH] Normal 5-9 [facility] Comment on above: Performed By: #### M DAVID #### [facility] [address] [address] [address] Ibis Jimenez Protein (U) [Mass/Vol] 30 mg/dL Abnormal NEGATIVE/ TRA CE [facility] Comment on above: Performed By: #### M DAVID #### [facility] [address] [place] [address] Dr. Ibis Jimenez SPEC GRAVITY 1.025 Normal 1.005-<=1.025 [facility] Comment on above: Performed By: #### M DAVID #### [facility] [address] [place] [address] Dr. Ibis Jimenez UR MICRO IND INDICATED Normal [facility] Comment on above: Performed By: #### M DAVID #### [facility] [address] [place] [address] Dr. Ibis Jimenez Urobilinogen Qn (U) 0.2 {Dinorah'U}/dL Normal 0.2 - 1. 0 [facility] Comment on above: Performed By: #### M DAVID #### [facility] [address] [place] [address] Dr. Ibis Jimenez ETHANOL (BLD ALC)on 06-20-19 23 ALC NOTE NOTE: 80 mg/dl is th e legal limit for a blood alcohol level Normal The [facility] Comment on above: Performed By: #### A MM #### [facility] [address] [place] [address] Dr. Ibis Jimenez Ethanol [Mass/Vol] mg/dL Normal The [facility] Comment on above: Performed By: #### A MM #### [facility] [address] [address] [address] Ibis Jimenez POINT OF CARE GLUCOSEon 05-23 Glucose [Mass/Vol] 88 mg/dL Normal 74-106 [facility] Comment on above: Performed By: #### C VDTBH #### [facility] [address] [address] [address] Ibis Jimenez URon 06-19-2022 , QUAL Negative Normal NEGATIVE [facility] Comment on above: Performed By: #### M DAVID #### [facility] [address] [address] [address] Ibis Jimenez PROF CHEM 8 (BAS METB)on Anion gap [Moles/Vol] 12.6 mmol/L Normal [facility] Comment on above: Performed By: #### A MM #### [facility] [address] [place] [address] Dr. Ibis Jimenez Calcium [Mass/Vol] 8.4 mg/dL Critically low 8.5-10.1 [facility] Comment on above: Performed By: #### A MM #### [facility] [address] [address] [address] Ibis Jimenez Chloride [Moles/Vol] 107 mmol/L Normal 98-107 [facility] Comment on above: Performed By: #### A MM #### [facility] [address] [place] [address] Dr. Ibis Jimenez CO2 [Moles/Vol] 22.5 mmol/L Normal 21.0-32.0 [facility] Comment on above: Performed By: #### A MM #### [facility] [address] [place] [address] Dr. Ibis Jimenez Creatinine [Mass/Vol] 0.82 mg/dL Normal 0.55-1.02 [facility] Comment on above: Performed By: #### A MM #### [facility] [address] [place] [address] Dr. Ibis Jimenez EGFR-AF [facility] LUCIAN >60 Normal >=60 [facility] Comment on above: Performed By: #### A MM #### [facility] [address] [address] [address] Ibis Jimenez EGFR-NON AF [facility] LUCIAN >60 Normal >=60 [facility] Comment on above: Performed By: #### A MM #### [facility] [address] [address] [address] Ibis Jimenez Glucose [Mass/Vol] 87 mg/dL Normal 74-106 [facility] Comment on above: Performed By: #### A MM #### [facility] [address] [address] [address] Ibis Jimenez Potassium [Moles/Vol] 4.1 mmol/L Normal 3.5-5.1 [facility] Comment on above: Performed By: #### A MM #### [facility] [address] [place] [address] Dr. Ibis Jimenez Sodium [Moles/Vol] 138 mmol/L Normal 136-145 [facility] Comment on above: Performed By: #### A MM #### [facility] [address] [place] [address] Dr. Ibis Jimenez Urea nitrogen [Mass/Vol] 22.0 mg/dL Critically high 7.0-18 .0 [facility] Comment on above: Performed By: #### A MM #### [facility] [address] [place] [address] Dr. Ibis Jimenez Urea nitrogen/Creatinine [Mass ratio] 26.8 mg/mg Normal [facility] Comment on above: Performed By: #### A MM #### [facility] [address] [address] [address] Ibis Jimenez SALICYLATEon 06-19-2022 SALICYLATE <2.8 Normal <=19.9 [facility] Comment on above: Performed By: #### A KORI DAVIS #### [facility] [address] [place] [address] Dr. Ibis Jimenez URINE MICROSCOPIC ONLYon BACTERIA NONE SEEN Normal NONE SEEN [facility] Comment on above: Performed By: #### M DAVID #### [facility] [address] [place] [address] Dr. Ibis Jimenez Bacteria identified Cx Nom (U) NOT INDICATED Normal [facility] Comment on above: Performed By: #### M DAVID #### [facility] [address] [place] [address] Dr. Ibis Jimenez CAST SEEN Abnormal NONE SEEN [facility] Comment on above: Performed By: #### M DAVID #### [facility] [address] [place] [address] Dr. Ibis Jimenez Crystals LM Nom (Urine sed) NONE SEEN Normal NONE SEE N [facility] Comment on above: Performed By: #### M DAVID #### [facility] [address] [place] [address] Dr. Ibis Jimenez Epithelial cells LM Ql (Urin e sed) MODERATE Abnormal NONE SEEN /RARE [facility] Comment on above: Performed By: #### M DAVID #### [facility] [address] [place] [address] Dr. Ibis Jimenez HYALINE CAST FEW Normal [facility] Comment on above: Performed By: #### M DAVID #### [facility] [address] [place] [address] Dr. Ibis Jimenez MUCOUS NONE SEEN Normal NONE SEEN [facility] Comment on above: Performed By: #### M DAVID #### [facility] [address] [place] [address] Dr. Ibis Jimenez RBC 2-5 Abnormal 0-2 [facility] Comment on above: Performed By: #### M DAVID #### [facility] [address] [place] [address] Dr. Ibis Jimenez WBC NONE SEEN Normal NONE SEEN [facility] Comment on above: Performed By: #### M DAVID #### [facility] [address] [place] [address] Dr. Ibis Jimenez CBC AUTO DIFFon 06-11-2022 BASO # 0.0 103/ul Normal 0.0-0.1 [facility] Comment on above: Performed By: #### C VDTBH #### [facility] [address] [place] [address] Dr. Ibis Jimenez Basophils/100 WBC (Bld) 0.3 % Normal 0.2-2.0 [facility] Comment on above: Performed By: #### C VDTBH #### [facility] [address] [place] [address] Dr. Ibis Jimenez EO # 0.0 103/ul Normal 0.0-0.7 [facility] Comment on above: Performed By: #### C VDTBH #### [facility] [address] [place] [address] Dr. Ibis Jimenez Eosinophils/100 WBC (Bld) 0.1 % Critically low 0.9-7. 0 [facility] Comment on above: Performed By: #### C VDTBH #### [facility] [address] [place] [address] Dr. Ibis Jimenez Erythrocyte distribution wid th (RBC) [Ratio] 13.2 % Normal 11.0-15.0 [facility] Comment on above: Performed By: #### C VDTBH #### [facility] [address] [place] [address] Dr. Ibis Jimenez Hematocrit (Bld) [Volume fraction] 38.5 % Normal 3 6.0-48.0 [facility] Comment on above: Performed By: #### C VDTBH #### [facility] [address] [place] [address] Dr. Ibis Jimenez Hemoglobin (Bld) [Mass/Vol] 12.4 g/dL Normal 12.0-16. 0 [facility] Comment on above: Performed By: #### C VDTBH #### [facility] [address] [place] [address] Dr. Ibis Jimenez IG # 0.20 10e3/ul Critically high 0.00-0.03 [facility] Comment on above: Performed By: #### C VDTBH #### [facility] [address] [place] [address] Dr. Ibis Jimenez IG % 1.8 % Critically high 0.0-0.5 [facility] Comment on above: Performed By: #### C VDTBH #### [facility] [address] [place] [address] Dr. Ibis Jimenez LYMPH # 0.5 103/ul Critically low 1.2-3.8 [facility] Comment on above: Performed By: #### C VDTBH #### [facility] [address] [place] [address] Dr. Ibis Jimenez Lymphocytes/100 WBC (Bld) 4.6 % Critically low 20.5-6 0.0 [facility] Comment on above: Performed By: #### C VDTBH #### [facility] [address] [place] [address] Dr. Ibis Jimenez MANUAL DIFF REQ NO Normal [facility] Comment on above: Performed By: #### C VDTBH #### [facility] [address] [place] [address] Dr. Ibis Jimenez MCH (RBC) [Entitic mass] 28.2 pg Normal 26.7-34.0 [facility] Comment on above: Performed By: #### C VDTBH #### [facility] [address] [place] [address] Dr. Ibis Jimenez MCHC (RBC) [Mass/Vol] 32.2 g/dL Normal 29.9-35.2 [facility] Comment on above: Performed By: #### C VDTBH #### [facility] [address] [place] [address] Dr. Ibis Jimenez MCV (RBC) [Entitic vol] 87.5 fL Normal 81.0-99.0 [facility] Comment on above: Performed By: #### C VDTBH #### [facility] [address] [place] [address] Dr. Ibis Jimenez MONO # 0.1 103/ul Critically low 0.3-0.8 [facility] Comment on above: Performed By: #### C VDTBH #### [facility] [address] [place] [address] Dr. Ibis Jimenez Monocytes/100 WBC (Bld) 1.3 % Critically low 1.7-12.0 [facility] Comment on above: Performed By: #### C VDTBH #### [facility] [address] [place] [address] Dr. Ibis Jimenez NEUT # 10.1 103/ul Critically high 1.4-6.5 [facility] Comment on above: Performed By: #### C VDTBH #### [facility] [address] [place] [address] Dr. Ibis Jimenez Neutrophils/100 WBC (Bld) 91.9 % Critically high 43.0- 75.0 [facility] Comment on above: Performed By: #### C VDTBH #### [facility] [address] [place] [address] Dr. Ibis Jimenez Platelet mean volume (Bld) [Entitic vol] 9.1 fL Critically low 9.5-13.5 [facility] Comment on above: Performed By: #### C VDTBH #### [facility] [address] [place] [address] Dr. Ibis Jimenez PLT 240 103/ul Normal 150-450 [facility] Comment on above: Performed By: #### C VDTBH #### [facility] [address] [place] [address] Dr. Ibis Jimenez RBC 4.40 106/ul Normal 4.20-5.40 [facility] Comment on above: Performed By: #### C VDTBH #### [facility] [address] [place] [address] Dr. Ibis Jimenez WBC 11.0 103/ul Normal 4.0-11.0 [facility] Comment on above: Performed By: #### C VDTBH #### [facility] [address] [place] [address] Dr. Ibis Jimenez PROF 14(COMP METB)on 023 Albumin [Mass/Vol] 3.3 g/dL Critically low 3.4-5.0 [facility] Comment on above: Performed By: #### B MP #### [facility] [address] [place] [address] Dr. Ibis Jimenez Albumin/Globulin [Mass ratio] 0.9 {ratio} Normal [facility] Comment on above: Performed By: #### B MP #### [facility] [address] [place] [address] Dr. Ibis Jimenez ALP [Catalytic activity/Vol] 63 U/L Normal 46-116 [facility] Comment on above: Performed By: #### B MP #### [facility] [address] [address] [address] Ibis Jimenez ALT [Catalytic activity/Vol] 32 U/L Normal 14-59 [facility] Comment on above: Performed By: #### B MP #### [facility] [address] [place] [address] Dr. Ibis Jimenez Anion gap [Moles/Vol] 12.9 mmol/L Normal [facility] Comment on above: Performed By: #### B MP #### [facility] [address] [place] [address] Dr. Ibis Jimenez AST [Catalytic activity/Vol] 14 U/L Critically low 15- 37 [facility] Comment on above: Performed By: #### B MP #### [facility] [address] [place] [address] Dr. Ibis Jimenez Bilirubin [Mass/Vol] 0.2 mg/dL Normal 0.2-1.0 [facility] Comment on above: Performed By: #### B MP #### [facility] [address] [place] [address] Dr. Ibis Jimenez Calcium [Mass/Vol] 8.5 mg/dL Normal 8.5-10.1 [facility] Comment on above: Performed By: #### B MP #### [facility] [address] [place] [address] Dr. Ibis Jimenez Chloride [Moles/Vol] 106 mmol/L Normal 98-107 [facility] Comment on above: Performed By: #### B MP #### [facility] [address] [place] [address] Dr. Ibis Jimenez CO2 [Moles/Vol] 26.6 mmol/L Normal 21.0-32.0 [facility] Comment on above: Performed By: #### B MP #### [facility] [address] [address] [address] Ibis Jimenez Creatinine [Mass/Vol] 0.89 mg/dL Normal 0.55-1.02 [facility] Comment on above: Performed By: #### B MP #### [facility] [address] [address] [address] Ibis Jimenez EGFR-AF [facility]CIAN >60 Normal >=60 [facility] Comment on above: Performed By: #### B MP #### [facility] [address] [address] [address] Ibis Jimenez EGFR-NON AF [facility] LUCIAN >60 Normal >=60 [facility] Comment on above: Performed By: #### B MP #### [facility] [address] [address] [address] Ibis Jimenez Globulin (S) [Mass/Vol] 3.6 g/dL Normal [facility] Comment on above: Performed By: #### B MP #### [facility] [address] [address] [address] Ibis Jimenez Glucose [Mass/Vol] 134 mg/dL Critically high 74-106 [facility] Comment on above: Performed By: #### B MP #### [facility] [address] [address] [address] Ibis Jimenez Potassium [Moles/Vol] 4.5 mmol/L Normal 3.5-5.1 [facility] Comment on above: Performed By: #### B MP #### [facility] [address] [address] [address] Ibis Jimenez Protein [Mass/Vol] 6.9 g/dL Normal 6.4-8.2 [facility] Comment on above: Performed By: #### B MP #### [facility] [address] [address] [address] Ibis Jimenez Sodium [Moles/Vol] 141 mmol/L Normal 136-145 [facility] Comment on above: Performed By: #### B MP #### [facility] [address] [place], [place] [address] Dr. Ibis Jimenez Urea nitrogen [Mass/Vol] 15.0 mg/dL Normal 7.0-18.0 [facility] Comment on above: Performed By: #### B MP #### [facility] [address] [place], [place] [address] Dr. Ibis Jimenez Urea nitrogen/Creatinine [Mass ratio] 16.9 mg/mg Normal [facility] Comment on above: Performed By: #### B MP #### [facility] [address] [place], [place] [address] HEAD WO CONon 05-23-2022 CT HEAD WO CON EXAMINATION: CT HEAD CON, 05/23/2022 6:45 PM EDT HISTORY: Traumatic AND/OR non-traumatic injury COMPARISON: None. TECHNIQUE: CT scan of the head was performed without IV contrast. CT dose reduction technique was used, including Automated Exposure Control. FINDINGS: BRAIN PARENCHYMA/CSF SPACES: Ventricles are normal in size for age. There is no hemorrhage, mass effect or midline shift. There are no other significant findings. PARANASAL SINUSES: Mild to moderate right frontal sinus disease. Mild bilateral ethmoid sinus disease. SKULL BASE AND CALVARIUM: Normal. EXTRACRANIAL SOFT TISSUES: Normal. IMPRESSION: 1. No acute intracranial abnormality. 2. Sinus disease as described. Electronically authenticated by: NICHOLAS MARCUS Date: 2022-05-23 19:25 Normal [facility] CT LSHANALEI WO CONon [address] [facility] CT CERVICAL SPINE WI THOUT CONTRAST. CT LUMBAR SPINE WITHOUT CONTRAST HISTORY: Traumatic AND/OR non-traumatic injury. COMPARISON: CT abdomen and pelvis 01/14/2022, CT cervical spine from 08/28/2020. TECHNIQUE: Axial CT scans through the cervical spine and lumbar spine were obtained without contrast administration. Sagittal and coronal reconstruction images were obtained. Dose reduction techniques were achieved by using automated exposure control and/or adjustment of mA and/or kV according to patient size and/or use of iterative reconstruction technique. CT CERVICAL SPINE FINDINGS: No acute fracture or posttraumatic malalignment is seen. There is straightening of the normal cervical lordotic curvature. The prevertebral soft tissue space appears normal. Visualized neck shows no adenopathy. Visualized lung apices are clear. IMPRESSION: No acute fracture or posttraumatic malalignment. Straightening of cervical lordosis, may be related to positioning or muscle spasm. CT LUMBAR SPINE FINDINGS: No acute fracture or subluxation is seen. The vertebral body heights and alignment are maintained. The disc spaces are preserved. Facet joints are unremarkable. No significant disc herniation, spinal canal or neural foraminal stenosis. There are mild degenerative changes of bilateral sacroiliac joints with vacuum phenomenon. The soft tissues are unremarkable. IMPRESSION: No acute fracture or subluxation. Mild degenerative changes of bilateral sacroiliac joints with vacuum phenomenon. Electronically authenticated by: SINDY UNLU Date: 2022-05-23 19:41 Normal [facility] CBC W Auto Differential pane l (Bld)on 04-01-2022 Basophils (Bld) [#/Vol] 10*3/uL Normal <0.11 [facility] Comment on above: Order Comment: Speci men Type: BLOOD SPECIMENOrdering Facility: [facility] Address: [address] [place] [address] Performed By: #### 5 7021-8 ####[facility] LABIA [id number] [place] [address] [place] Basophils/100 WBC (Bld) 0.1 % Normal [facility] Comment on above: Order Comment: Speci men Type: BLOOD SPECIMENOrdering Facility: [facility] Address: [address] [place] [address] Performed By: #### 5 7021-8 ####[facility] LABCLIA [id number] [place] [address] [place] Differential cell count method Nom (Bld) Auto Normal [facility] Comment on above: Order Comment: Speci men Type: BLOOD SPECIMENOrdering Facility: [facility] Address: [address] [address] Performed By: #### 5 7021-8 ####[facility] LABCLIA [id number] [place] [address] [place] Eosinophils (Bld) [#/Vol] 10*3/uL Normal <0.46 [facility] Comment on above: Order Comment: Speci men Type: BLOOD SPECIMENOrdering Facility: [facility] Address: [address] [place] [address] Performed By: #### 5 7021-8 ####[facility] LABCLIA [id number] [place] [address] [place] Eosinophils/100 WBC (Bld) 0.1 % Normal [facility] Comment on above: Order Comment: Speci men Type: BLOOD SPECIMENOrdering Facility: [facility] Address: [address] [place] [address] Performed By: #### 5 7021-8 ####[facility] [facility] [id number] [place] [address] [place] Erythrocyte distribution wid th (RBC) [Ratio] 12.6 % Normal 11.5-15.0 [facility] Comment on above: Order Comment: Speci men Type: BLOOD SPECIMENOrdering Facility: [facility] Address: [address] [place], [place] [address] Performed By: #### 5 7021-8 ####[facility] LABCLIA [id number] [place] [address] [place] Hematocrit (Bld) [Volume fraction] 40.6 % Normal 3 6.0-46.0 [facility] Comment on above: Order Comment: Speci men Type: BLOOD SPECIMENOrdering Facility: [facility] Address: [address] [place], [place] [address] Performed By: #### 5 7021-8 ####[facility] LABCLIA [id number] [place] [address] [place] Hemoglobin (Bld) [Mass/Vol] 13.6 g/dL Normal 11.5-15. 5 [facility] Comment on above: Order Comment: Speci men Type: BLOOD SPECIMENOrdering Facility: [facility] Address: [address] Performed By: #### 5 7021-8 ####[facility] LABCLIA [id number] [place] [address] [place] Immature granulocytes (Bld) [#/Vol] 0.04 10*3/uL Normal <0.10 [facility] Comment on above: Order Comment: Speci men Type: BLOOD SPECIMENOrdering Facility: [facility] Address: [address] [place] [address] Performed By: #### 5 7021-8 ####[facility] LABCLIA [id number] [address] [place] Immature granulocytes/100 WBC (Bld) 0.5 % Normal [facility] Comment on above: Order Comment: Speci men Type: BLOOD SPECIMENOrdering Facility: [facility] Address: [address] Performed By: #### 5 7021-8 ####[facility] LABCLIA [id number] [place] [address] [place] Lymphocytes (Bld) [#/Vol] 0.84 10*3/uL Low 1.00-4.0 0 [facility] Comment on above: Order Comment: Speci men Type: BLOOD SPECIMENOrdering Facility: [facility] Address: [address] Performed By: #### 5 7021-8 ####[facility] LABCLIA [id number] [place] [address] [place] Lymphocytes/100 WBC (Bld) 9.5 % Normal [facility] Comment on above: Order Comment: Speci men Type: BLOOD SPECIMENOrdering Facility: [facility] Address: [address] Performed By: #### 5 7021-8 ####[facility] LABCLIA [id number] [place] [address] [place] MCH (RBC) [Entitic mass] 28.8 pg Normal 26.0-34.0 [facility] Comment on above: Order Comment: Speci men Type: BLOOD SPECIMENOrdering Facility: [facility] Address: [address] [place] [address] Performed By: #### 5 7021-8 ####[facility] [id number] [address] STATES OF [facility] MCHC (RBC) [Mass/Vol] 33.5 g/dL Normal 30.5-36.0 [facility] Comment on above: Order Comment: Speci men Type: BLOOD SPECIMENOrdering Facility: [facility] Address: [address] [place] [address] Performed By: #### 5 7021-8 ####[facility] [id number] [address] STATES OF [facility] MCV (RBC) [Entitic vol] 85.8 fL Normal 80.0-100.0 [facility] Comment on above: Order Comment: Speci men Type: BLOOD SPECIMENOrdering Facility: [facility] Address: [address] [place], [place] [address] Performed By: #### 5 7021-8 ####[facility] [id number] [place] [address] [place] Monocytes (Bld) [#/Vol] 0.06 10*3/uL Normal <0.87 [facility] Comment on above: Order Comment: Speci men Type: BLOOD SPECIMENOrdering Facility: [facility] Address: [address] [place], [place] [address] Performed By: #### 5 7021-8 ####[facility] [id number] [address] OF [facility] Monocytes/100 WBC (Bld) 0.7 % Normal [facility] Comment on above: Order Comment: Speci men Type: BLOOD SPECIMENOrdering Facility: [facility] Address: [address] Performed By: #### 5 7021-8 ####[facility] LABCLIA [id number] [place] [address] [place] Neutrophils (Bld) [#/Vol] 7.87 10*3/uL High 1.45-7.5 0 [facility] Comment on above: Order Comment: Speci men Type: BLOOD SPECIMENOrdering Facility: [facility] Address: [address] Performed By: #### 5 7021-8 ####[facility] LABCLIA [id number] [place] [address] [place] Neutrophils/100 WBC (Bld) 89.1 % Normal [facility] Comment on above: Order Comment: Speci men Type: BLOOD SPECIMENOrdering Facility: [facility] Address: [address] Performed By: #### 5 7021-8 ####[facility] LABCLIA [id number] [place] [address] [place] Nucleated RBC (Bld) [#/Vol] 10*3/uL Normal <0.01 [facility] Comment on above: Order Comment: Speci men Type: BLOOD SPECIMENOrdering Facility: [facility] Address: [address] Performed By: #### 5 7021-8 ####[facility] LABCLIA [id number] [place] [address] [place] Nucleated RBC/100 WBC (Bld) [Ratio] 0.0 /100 WBC Normal [facility] Comment on above: Order Comment: Speci men Type: BLOOD SPECIMENOrdering Facility: [facility] Address: [address] Performed By: #### 5 7021-8 ####[facility] LABCLIA [id number] [place] [address] [place] Platelet mean volume (Bld) [Entitic vol] 10.0 fL Normal 9.0-12.7 [facility] Comment on above: Order Comment: Speci men Type: BLOOD SPECIMENOrdering Facility: [facility] Address: [address] [place], [place] [address] Performed By: #### 5 7021-8 ####[facility] LABIA [id number] [place] [address] [place] Platelets (Bld) [#/Vol] 219 10*3/uL Normal 150-400 [facility] Comment on above: Order Comment: Speci men Type: BLOOD SPECIMENOrdering Facility: [facility] Address: [address] [place], [place] [address] Result Comment: No c lot detected. Performed By: #### 5 7021-8 ####[facility] LABIA [id number] [place] [address] [place] RBC (Bld) [#/Vol] 4.73 10*6/uL Normal 3.90-5.20 [facility] Comment on above: Order Comment: Speci men Type: BLOOD SPECIMENOrdering Facility: [facility] Address: [address] [place] [address] Performed By: #### 5 7021-8 ####[facility] LABIA [id number] [place] [address] [place] WBC (Bld) [#/Vol] 8.83 10*3/uL Normal 3.70-11.00 [facility] Comment on above: Order Comment: Speci men Type: BLOOD SPECIMENOrdering Facility: [facility] Address: [address] [place], [place] [address] Performed By: #### 5 7021-8 ####[facility] LABCLIA [id number] [place] [id number] OF [facility] CNDSon 04-01-2022 CNDS HNO ID: [id number] Author: Lo Coyle PA-C Service: Neurology Adult Epilepsy Author Type: Physician Meal Miller Type: Discharge Summary Filed: 04/01/2022 5:40 PM Note Text: Attestation signed by David Goldman MD at 04/02/2022 9:36 AM [facility] ATTENDING NOTE Date of Service: April 02, 2022 [facility] STAFF PHYSICIAN NOTE OF PERSONAL INVOLVEMENT IN CARE Patient was seen by me on rounds on this date of discharge. I have reviewed the discharge note obtained and documented by Lo as above. Please see my separate phase report for details of history, EEG interpretation, and overall impression. My personal estimated time with this patient for final examination, discharge preparation, and discussion of the hospital stay including instructions on medications and continued care was approximately 25 minutes, which is in addition to the time spent documented above. I have performed the substantive portion including [id number] and relevant services for a total of < 30 minutes. David Goldman MD Staff Physician [facility] [address] [facility], [place] [address] Office DISCHARGE SUMMARY PATIENT NAME: Margaret Nicholson ADMISSION DATE: 04/01/2022 DISCHARGE DATE: 04/01/2022 ADMITTING SERVICE: Epilepsy ATTENDING PHYSICIAN: David Goldman MD Code Status: Not on file Referring/Secondary Physician: Dr. Dolan Highest Readmission Risk Score: 9 The 30 day readmissions risk score is derived from an internally validated risk model which evaluates patient level characteristics, utilization history, medication orders and lab results up until the day of discharge. Patients with a score of 40 or above are considered highest risk for readmission. Specific patient level drivers will be listed at the bottom of the summary. The 30 day readmissions risk score is derived from an internally validated risk model which evaluates patient level characteristics, utilization history, medication orders and lab results up until the day of discharge. Patients with a score of 40 or above are considered highest risk for readmission. Specific patient level drivers will be listed at the bottom of the summary. REASON FOR HOSPITALIZATION: Diagnosis of Events IMPORTANT TESTS AND PROCEDURES: Continuous Video EEG HOSPITAL COURSE: Margaret Nicholson is a 26 year old female who presented to the [facility] EM[facility] on 04/01/2022 for diagnosis. Medications were continued during the admission. Patient noted to have multiple typical events . Please see separate video-EEG report for details. Prior to discharge, antiepileptic medications were continued at home dosing without changes: LTG 50mg/150mg . Transitions of Care Critical Issues: None LABS AND PROCEDURES PENDING AT DISCHARGE: Finalized Video EEG Report CONSULTING TEAMS DURING HOSPITALIZATION: None Treatment Team: Attending Provider: David Goldman MD PATIENT CONDITION AT DISCHARGE: Stable DISCHARGE DISPOSITION: Home with Self Care Discharge Physical Exam: VITAL SIGNS: BP 115/57 Pulse 84 Temp 36.6 ?C (97.9 ?F) (Oral) Resp 18 Ht 157.5 cm (5' 2 ) Wt 113.4 kg (250 lb) SpO2 97% BMI 45.73 kg/m? GENERAL: Alert, no distress, cooperative Cardiac - RRR per monitor Respiratory - non-labored breathing NEURO: Mental Status: Alert and oriented to person, place and time. Able to follow 1 and 2 step commands. Cranial Nerves: Pupils equal and reactive to light, extraocular muscles intact. No nystagmus, face movements symmetric. Motor: Moves all extremities equally. Gait exam deferred INFORMATION PROVIDED TO PATIENT: Nonepileptic events- DIET: Resume pre-hospital diet ACTIVITY: Resume pre-hospital activity ALLERGIES Allergen Reactions Adhesive Tape-Silic* Rash Azithromycin Other: See Comments Keflex [Cephalexin] Rash Pyrilamine-Dextrome* Hives Reglan [Metoclopram* Intolerance Vortioxetine Hives DISCHARGE MEDICATION: Current Discharge Medication List CONTINUE these medications which have NOT CHANGED lamoTRIgine (LAMICTAL) 150 mg tablet venlafaxine ER (EFFEXOR XR) 75 mg 24 hr capsule venlafaxine ER 75 mg capsule,extended release 24 hr cariprazine (VRAYLAR) 4.5 mg capsule Vraylar 4.5 mg capsule gabapentin (NEURONTIN) 600 mg tablet diazePAM (VALIUM) 10 mg tablet baclofen (LIORESAL) 10 mg tablet fremanezumab-vfrm (AJOVY AUTOINJECTOR) 225 mg/1.5 mL auto-injector Ajovy 225 mg/1.5 mL subcutaneous auto-injector naratriptan (AMERGE) 2.5 mg Take 2.5 mg by mouth as needed. 2.5 mg at onset of headache, may repeat in 4 hours if needed Qty: 10 tablet Refills: 5 PLAN OF CARE: Plan of care discussed with Provider, RN, Patient FUTURE APPOINTMENTS: Please follow up with your Epileptologist. Dr. Good (more content not included)... Normal C [facility] CT HEAD WO CONon 04-01-2022 CT HEAD WO CON Study: CT HEAD WO CO N HISTORY: HEADACHE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 SNAP benefits and Medicaid. SOCIAL SUPPORTS: Patient identifies her fiance and her parents as her most significant support, informing her parents are watching her children during her hospitalization. ABUSE/NEGLECT/EXPLOITATION CONCERNS: None identified at this time. COLLATERAL INFORMATION: None gathered. CLINICAL IMPRESSION: Patient presents as bright in affect, friendly and cooperative with SW assessment. 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 Patient has a history of PTSD, bipolar disorder, depression and anxiety. She is currently well established with local mental health provide (more content not included)... Normal [facility] TSH SerPl-aCncon 04-01-2022 TSH Qn 0.537 m[IU]/L Normal 0.270-4.200 [facility] Comment on above: Order Comment: Speci men Type: BLOOD SPECIMENOrdering Facility: [facility] Address: [address] [place] [address] [place] [address] Result Comment: If t he patient is , TSH reference range varies by gestational period: First Trimester (weeks 9-12): 0.180-2.990 mIU/L Second Trimester: 0.110-3.980 mIU/L Third Trimester: 0.480-4.710 mIU/L Sanford Fernández et al. A Practical Approach for the Verifications and Determination of Site- and Trimester-Specific Reference Intervals for Thyroid Function tests in . Thyroid, 2019:29:3:412-420. Lior Gan, et al. 2017 Guidelines of the [place] Thyroid Association for the Diagnosis and Management of Thyroid Disease during and the . Thyroid, 2017:27:3:315-389. Performed By: #### 2 4323-8, 16659-2, 2777-1, 3016-3 ####[facility]CLIA [id number] [facility] [address] STATES OF [facility] URINE MICROSCOPIC ONLYon BACTERIA TRACE Abnormal NONE SEEN [facility] Comment on above: Performed By: #### A CET, SALYC #### [facility] [address] [place] [address] Dr. Ibis Jimenez Bacteria identified Cx Nom (U) NOT INDICATED Normal [facility] Comment on above: Performed By: #### A CET, SALYC #### [facility] [address] [place] [address] Dr. Ibis Jimenez CAST NONE SEEN Normal NONE SEEN [facility] Comment on above: Performed By: #### A CET, SALYC #### [facility] [address] [place] [address] Dr. Ibis Jimenez Crystals LM Nom (Urine sed) NONE SEEN Normal NONE SEE N [facility] Comment on above: Performed By: #### A CET, SALYC #### [facility] [address] [place] [address] Dr. Ibis Jimenez Epithelial cells LM Ql (Urine sed) RARE Normal N ONE SEEN /RARE [facility] Comment on above: Performed By: #### A CET, SALYC #### [facility] [address] [place] [address] Dr. Ibis Jimenez MUCOUS TRACE Abnormal NONE SEEN [facility] Comment on above: Performed By: #### A CET, SALYC #### [facility] [address] [place] [address] Dr. Ibis Jimenez RBC 0-2 Normal 0-2 [facility] Comment on above: Performed By: #### A CET, SALYC #### [facility] [address] [place] [address] Dr. Ibis Jimenez WBC NONE SEEN Normal NONE SEEN [facility] Comment on above: Performed By: #### A BEE DAVISYC #### [facility] [address] [place] [address] Dr. Ibis Jimenez AMMONIAon 03-31-2022 Ammonia (P) [Moles/Vol] 31 umol/L Normal 11-32 T [facility] Comment on above: Performed By: #### A MM #### [facility] [address] [place] [address] Dr. Ibis Jimenez CBC AUTO DIFFon 03-31-2022 BASO # 0.0 103/ul Normal 0.0-0.1 [facility] Comment on above: Performed By: #### A MM #### [facility] [address] [place] [address] Dr. Ibis Jimenez Basophils/100 WBC (Bld) 0.4 % Normal 0.2-2.0 [facility] Comment on above: Performed By: #### A MM #### [facility] [address] [place] [address] Dr. Ibis Jimenez EO # 0.5 103/ul Normal 0.0-0.7 [facility] Comment on above: Performed By: #### A MM #### [facility] [address] [place] [address] Dr. Ibis Jimenez Eosinophils/100 WBC (Bld) 6.4 % Normal 0.9-7.0 [facility] Comment on above: Performed By: #### A MM #### [facility] [address] [place] [address] Dr. Ibis Jimenez Erythrocyte distribution wid th (RBC) [Ratio] 12.8 % Normal 11.0-15.0 [facility] Comment on above: Performed By: #### A MM #### [facility] [address] [place] [address] Dr. Ibis Jimenez Hematocrit (Bld) [Volume fraction] 36.6 % Normal 3 6.0-48.0 [facility] Comment on above: Performed By: #### A MM #### [facility] [address] [address] [address] Ibis Jimenez Hemoglobin (Bld) [Mass/Vol] 12.5 g/dL Normal 12.0-16. 0 [facility] Comment on above: Performed By: #### A MM #### [facility] [address] [address] [address] Ibis Jimenez IG # 0.02 10e3/ul Normal 0.00-0.03 [facility] Comment on above: Performed By: #### A MM #### [facility] [address] [address] [address] Ibis Jimenez IG % 0.3 % Normal 0.0-0.5 [facility] Comment on above: Performed By: #### A MM #### [facility] [address] [place] [address] Dr. Ibis Jimenez LYMPH # 2.0 103/ul Normal 1.2-3.8 [facility] Comment on above: Performed By: #### A MM #### [facility] [address] [place] [address] Dr. Ibis Jimenez Lymphocytes/100 WBC (Bld) 25.0 % Normal 20.5-60.0 [facility] Comment on above: Performed By: #### A MM #### [facility] [address] [place] [address] Dr. Ibis Jimenez MANUAL DIFF REQ NO Normal [facility] Comment on above: Performed By: #### A MM #### [facility] [address] [address] [address] Ibis Jimenez MCH (RBC) [Entitic mass] 29.5 pg Normal 26.7-34.0 [facility] Comment on above: Performed By: #### A MM #### [facility] [address] [place] [address] Dr. Ibis Jimenez MCHC (RBC) [Mass/Vol] 34.2 g/dL Normal 29.9-35.2 [facility] Comment on above: Performed By: #### A MM #### [facility] [address] [place] [address] Dr. Ibis Jimenez MCV (RBC) [Entitic vol] 86.3 fL Normal 81.0-99.0 [facility] Comment on above: Performed By: #### A MM #### [facility] [address] [place] [address] Dr. Ibis Jimenez MONO # 0.4 103/ul Normal 0.3-0.8 [facility] Comment on above: Performed By: #### A MM #### [facility] [address] [place] [address] Dr. Ibis Jimenez Monocytes/100 WBC (Bld) 5.6 % Normal 1.7-12.0 [facility] Comment on above: Performed By: #### A MM #### [facility] [address] [place] [address] Dr. Ibis Jimenez NEUT # 4.9 103/ul Normal 1.4-6.5 [facility] Comment on above: Performed By: #### A MM #### [facility] [address] [place] [address] Dr. Ibis Jimenez Neutrophils/100 WBC (Bld) 62.3 % Normal 43.0-75.0 [facility] Comment on above: Performed By: #### A MM #### [facility] [address] [place] [address] Dr. Ibis Jimenez Platelet mean volume (Bld) [Entitic vol] 9.5 fL Normal 9.5-13.5 [facility] Comment on above: Performed By: #### A MM #### [facility] [address] [place] [address] Dr. Ibis Jimenez PLT 246 103/ul Normal 150-450 [facility] Comment on above: Performed By: #### A MM #### [facility] [address] [place] [address] Dr. Ibis iJmenez RBC 4.24 106/ul Normal 4.20-5.40 [facility] Comment on above: Performed By: #### A MM #### [facility] [address] [place] [address] Dr. Ibis Jimenez WBC 7.8 103/ul Normal 4.0-11.0 [facility] Comment on above: Performed By: #### A MM #### [facility] [address] [place] [address] Dr. Ibis Jimenez CULTURE BLOODon 03-31-2022 Microscopic examination of blood, culture Culture Observations: NO GROWTH AT 5 DAYS. Normal The [facility] Comment on above: Performed By: #### B [id number] #### [facility] [address] [place] [address] Dr. Ibis Jimenez Microscopic examination of blood, culture Culture Observations: NO GROWTH AT 5 DAYS. Normal The [facility] Comment on above: Performed By: #### B MP #### [facility] [address] [place] [address] Dr. Ibis Jimenez LACTATE/LACTIC ACIDon 2022 Lactate [Moles/Vol] 2.8 mmol/L Critically high 0.4-1.9 [facility] Comment on above: Performed By: #### C VDTBH #### [facility] [address] [place] [address] Dr. Ibis Jimenez PROF 14(COMP METB)on 023 Albumin [Mass/Vol] 3.4 g/dL Normal 3.4-5.0 [facility] Comment on above: Performed By: #### B MP #### [facility] [address] [place] [address] Dr. Ibis Jimenez Albumin/Globulin [Mass ratio] 1.2 {ratio} Normal [facility] Comment on above: Performed By: #### B MP #### [facility] [address] [place] [address] Dr. Ibis Jimenez ALP [Catalytic activity/Vol] 85 U/L Normal 46-116 [facility] Comment on above: Performed By: #### B MP #### [facility] [address] [place] [address] Dr. Ibis Jimenez ALT [Catalytic activity/Vol] 18 U/L Normal 14-59 [facility] Comment on above: Performed By: #### B MP #### [facility] [address] [address] [address] Ibis Jimenez Anion gap [Moles/Vol] 13.2 mmol/L Normal [facility] Comment on above: Performed By: #### B MP #### [facility] [address] [address] [address] Ibis Jimenez AST [Catalytic activity/Vol] 11 U/L Critically low 15- 37 [facility] Comment on above: Performed By: #### B MP #### [facility] [address] [address] [address] Ibis Jimenez Bilirubin [Mass/Vol] 0.2 mg/dL Normal 0.2-1.0 [facility] Comment on above: Performed By: #### B MP #### [facility] [address] [address] [address] Ibis Jimenez Calcium [Mass/Vol] 8.6 mg/dL Normal 8.5-10.1 [facility] Comment on above: Performed By: #### B MP #### [facility] [address] [address] [address] Ibis Jimenez Chloride [Moles/Vol] 105 mmol/L Normal 98-107 [facility] Comment on above: Performed By: #### B MP #### [facility] [address] [address] [address] Ibis Jimenez CO2 [Moles/Vol] 25.1 mmol/L Normal 21.0-32.0 [facility] Comment on above: Performed By: #### B MP #### [facility] [address] [address] [address] Ibis Jimenez Creatinine [Mass/Vol] 0.80 mg/dL Normal 0.55-1.02 [facility] Comment on above: Performed By: #### B MP #### [facility] [address] [address] [address] Iibs Jimenez EGFR-AF [facility] >60 Normal >=60 [facility] Comment on above: Performed By: #### B MP #### [facility] [address] [address] [address] Ibis Jimenez EGFR-NON AF [facility] >60 Normal >=60 [facility] Comment on above: Performed By: #### B MP #### [facility] [address] [address] [address] Ibis Jimenez Globulin (S) [Mass/Vol] 2.9 g/dL Normal T [facility] Comment on above: Performed By: #### B MP #### [facility] [address] [address] [address] Ibis Jimenez Glucose [Mass/Vol] 99 mg/dL Normal 74-106 [facility] Comment on above: Performed By: #### B MP #### [facility] [address] [address] [address] Ibis Jimenez Potassium [Moles/Vol] 3.3 mmol/L Critically low 3.5-5.1 [facility] Comment on above: Performed By: #### B MP #### [facility] [address] [address] [address] Ibis Jimenez Protein [Mass/Vol] 6.3 g/dL Critically low 6.4-8.2 [facility] Comment on above: Performed By: #### B MP #### [facility] [address] [address] [address] Ibis Jimenez Sodium [Moles/Vol] 140 mmol/L Normal 136-145 [facility] Comment on above: Performed By: #### B MP #### [facility] [address] [address] [address] Ibis Jimenez Urea nitrogen [Mass/Vol] 10.0 mg/dL Normal 7.0-18.0 [facility] Comment on above: Performed By: #### B MP #### [facility] [address] [address] [address] Ibis Jimenez Urea nitrogen/Creatinine [Mass ratio] 12.5 mg/mg Normal [facility] Comment on above: Performed By: #### B MP #### [facility] [address] [place] [address] Dr. Ibis Jimenez CBC AUTO DIFFon 01-14-2022 BASO # 0.0 103/ul Normal 0.0-0.1 [facility] Comment on above: Performed By: #### A MM #### [facility] [address] [place] [address] Dr. Ibis Jimenez Basophils/100 WBC (Bld) 0.3 % Normal 0.2-2.0 [facility] Comment on above: Performed By: #### A MM #### [facility] [address] [place] [address] Dr. Ibis Jimenez EO # 0.2 103/ul Normal 0.0-0.7 [facility] Comment on above: Performed By: #### A MM #### [facility] [address] [place] [address] Dr. Ibis Jimenez Eosinophils/100 WBC (Bld) 2.7 % Normal 0.9-7.0 [facility] Comment on above: Performed By: #### A MM #### [facility] [address] [place] [address] Dr. Ibis Jimenez Erythrocyte distribution wid th (RBC) [Ratio] 13.2 % Normal 11.0-15.0 [facility] Comment on above: Performed By: #### A MM #### [facility] [address] [place] [address] Dr. Ibis Jimenez Hematocrit (Bld) [Volume fraction] 35.7 % Critically low 36.0-48.0 [facility] Comment on above: Performed By: #### A MM #### [facility] [address] [place] [address] Dr. Ibis Jimenez Hemoglobin (Bld) [Mass/Vol] 12.2 g/dL Normal 12.0-16. 0 [facility] Comment on above: Performed By: #### A MM #### [facility] [address] [place] [address] Dr. Ibis Jimenez IG # 0.04 10e3/ul Critically high 0.00-0.03 The [facility] Comment on above: Performed By: #### A MM #### [facility] [address] [place] [address] Dr. Ibis Jimenez IG % 0.5 % Normal 0.0-0.5 [facility] Comment on above: Performed By: #### A MM #### [facility] [address] [place] [address] Dr. Ibis Jimenez LYMPH # 2.1 103/ul Normal 1.2-3.8 [facility] Comment on above: Performed By: #### A MM #### [facility] [address] [place] [address] Dr. Ibis Jimenez Lymphocytes/100 WBC (Bld) 27.3 % Normal 20.5-60.0 [facility] Comment on above: Performed By: #### A MM #### [facility] [address] [place] [address] Dr. Ibis Jimenez MANUAL DIFF REQ NO Normal [facility] Comment on above: Performed By: #### A MM #### [facility] [address] [place] [address] Dr. Ibis Jimenez MCH (RBC) [Entitic mass] 29.0 pg Normal 26.7-34.0 [facility] Comment on above: Performed By: #### A MM #### [facility] [address] [place] [address] Dr. Ibis Jimenez MCHC (RBC) [Mass/Vol] 34.2 g/dL Normal 29.9-35.2 [facility] Comment on above: Performed By: #### A MM #### [facility] [address] [place] [address] Dr. Ibis Jimenez MCV (RBC) [Entitic vol] 84.8 fL Normal 81.0-99.0 [facility] Comment on above: Performed By: #### A MM #### [facility] [address] [place] [address] Dr. Ibis Jimenez MONO # 0.7 103/ul Normal 0.3-0.8 [facility] Comment on above: Performed By: #### A MM #### [facility] [address] [address] [address] Ibis Jimenez Monocytes/100 WBC (Bld) 8.7 % Normal 1.7-12.0 [facility] Comment on above: Performed By: #### A MM #### [facility] [address] [place] [address] Dr. Ibis Jimenez NEUT # 4.7 103/ul Normal 1.4-6.5 [facility] Comment on above: Performed By: #### A MM #### [facility] [address] [place] [address] Dr. Ibis Jimenez Neutrophils/100 WBC (Bld) 60.5 % Normal 43.0-75.0 [facility] Comment on above: Performed By: #### A MM #### [facility] [address] [place] [address] Dr. Ibis Jimenez Platelet mean volume (Bld) [Entitic vol] 9.6 fL Normal 9.5-13.5 [facility] Comment on above: Performed By: #### A MM #### [facility] [address] [place] [address] Dr. Ibis Jimenez PLT 212 103/ul Normal 150-450 [facility] Comment on above: Performed By: #### A MM #### [facility] [address] [place] [address] Dr. Ibis Jimenez RBC 4.21 106/ul Normal 4.20-5.40 [facility] Comment on above: Performed By: #### A MM #### [facility] [address] [place] [address] Dr. Ibis Jimenez WBC 7.7 103/ul Normal 4.0-11.0 [facility] Comment on above: Performed By: #### A MM #### [facility] [address] [place] [address] ABD/PELV W CONon 01-15-20 CT ABD/PELV W CON EXAM: CT ABD/PELV W CON REASON FOR EXAM: Female, 26 years, UNSPECIFIED ABDOMINAL PAIN. TECHNIQUE: Computed tomography of the abdomen and pelvis is performed in the axial projection from the lung bases to the pubic symphysis. Sagittal and coronal reconstructed images are performed. Dose reduction techniques were achieved by using automated exposure control and/or adjustment of mA and/or KVP according to patient size and/or use of iterative reconstruction technique. A total of 100 mL Omnipaque 300 IV contrast was given. Study was performed without oral contrast. COMPARISON: 10/06/2021 FINDINGS: Lung bases: The lung bases are clear. There is no pleural effusion. The visualized portions of the heart are unremarkable. Liver: The liver is enlarged. The liver has decreased attenuation consistent with steatosis. Gallbladder: The gallbladder has been removed. Spleen: The spleen is normal. Pancreas: The pancreas is normal. Adrenal glands: The adrenal glands are normal bilaterally. Right kidney: The kidney is normal in size. There is no renal calculus or hydronephrosis. Left kidney: The kidney is normal in size. There is no renal calculus or hydronephrosis. Stomach: The stomach is normal. Small bowel: The small bowel is normal. Large bowel: The colon is normal. Appendix: There has been an appendectomy. Aorta: The aorta is normal. IVC: The IVC is normal. Retroperitoneum: Normal retroperitoneum. Bladder: The bladder is normal. Pelvic organs: The uterus is absent, consistent with hysterectomy. Abdominal wall: Postoperative changes are seen to the anterior low abdominal wall. Osseous structures: Normal bony structures. IMPRESSION: Hepatic steatosis and hepatomegaly. Postoperative changes of cholecystectomy, appendectomy, and hysterectomy. No bowel obstruction or acute renal pathology. Electronically authenticated by: TONY DAHL Date: 2022-01-14 20:01 Normal [facility] l ER URINE PROFILEon 2 Bilirubin Ql (U) Negative Normal NEGATIVE [facility] Comment on above: Performed By: #### A KORI DAVIS #### [facility] [address] [place] [address] Dr. Ibis Jimenez Clarity (U) CLEAR Normal CLEAR [facility] Comment on above: Performed By: #### A RYNA SALYC #### [facility] [address] [place], [place] [address] Dr. Ibis Jimenez Color (U) LT. YELLOW Normal YELLOW [facility] Comment on above: Performed By: #### A CET, SALYC #### [facility] [address] [place] [address] Dr. Ibis RODRIGUEZ A micrscopic examina tion will be performed if indicated. Normal [facility] l Comment on above: Performed By: #### A CET, SALYC #### [facility] [address] [place] [address] Dr. Ibis Jimenez Glucose Ql (U) Negative Normal NEGATIVE [facility] Comment on above: Performed By: #### A CET, SALYC #### [facility] [address] [place] [address] Dr. Ibis Jimenez Hemoglobin Ql (U) Negative Normal NEGATIVE The [facility] Comment on above: Performed By: #### A CET, SALYC #### [facility] [address] [place] [address] Dr. Ibis Jimenez Ketones Ql (U) Negative Normal NEGATIVE [facility] Comment on above: Performed By: #### A CET, SALYC #### [facility] [address] [place] [address] Dr. Ibis Jimenez LEUKOCYTES TRACE Abnormal NEGATIVE [facility] Comment on above: Performed By: #### A CET, SALYC #### [facility] [address] [place] [address] Dr. Ibis Jimenez Nitrite Ql (U) Negative Normal NEGATIVE [facility] Comment on above: Performed By: #### A CET, SALYC #### [facility] [address] [place] [address] Dr. Ibis Jimenez pH (U) 5.5 [pH] Normal 5-9 [facility] Comment on above: Performed By: #### A CET, SALYC #### [facility] [address] [place] [address] Dr. Ibis Jimenez SPEC GRAVITY 1.025 Normal 1.005-<=1.025 [facility] Comment on above: Performed By: #### A CET, SALYC #### [facility] [address] [place], [place] [id number] Dr. Ibis Jimenez UA PROTEIN Negative Normal NEGATIVE/ TRACE [facility] Comment on above: Performed By: #### A CET, SALYC #### [facility] [address] [place] [address] Dr. Ibis Jimenez UR MICRO IND INDICATED Normal [facility] Comment on above: Performed By: #### A CET, SALYC #### [facility] [address] [place] [address] Dr. Ibis Jimenez Urobilinogen Qn (U) 0.2 {Dinorah'U}/dL Normal 0.2 - 1. 0 [facility] Comment on above: Performed By: #### A RYAN SALYC #### [facility] [address] [place] [address] Dr. Ibis Jimenez URon 01-14-2022 , QUAL Negative Normal NEGATIVE [facility] Comment on above: Performed By: #### A RYAN SALYC #### [facility] [address] [place] [address] Dr. Ibis Jimenez PROF CHEM 8 (BAS METB)on Anion gap [Moles/Vol] 9.9 mmol/L Normal [facility] Comment on above: Performed By: #### B MP #### [facility] [address] [place] [address] Dr. Ibis Jimenez Calcium [Mass/Vol] 8.6 mg/dL Normal 8.5-10.1 [facility] Comment on above: Performed By: #### B MP #### [facility] [address] [place] [address] Dr. Ibis Jimenez Chloride [Moles/Vol] 105 mmol/L Normal 98-107 [facility] Comment on above: Performed By: #### B MP #### [facility] [address] [place] [address] Dr. Ibis Jimenez CO2 [Moles/Vol] 27.5 mmol/L Normal 21.0-32.0 [facility] Comment on above: Performed By: #### B MP #### [facility] [address] [place], [place] [id number] Dr. Ibis Jimenez Creatinine [Mass/Vol] 0.70 mg/dL Normal 0.55-1.02 [facility] Comment on above: Performed By: #### B MP #### [facility] [address] [place] [address] Dr. Ibis Jimenez EGFR-AF [facility] >60 Normal >=60 [facility] Comment on above: Performed By: #### B MP #### [facility] [address] [address] [address] Ibis Jimenez EGFR-NON AF [facility] >60 Normal >=60 [facility] Comment on above: Performed By: #### B MP #### [facility] [address] [place] [address] Dr. Ibis Jimenez Glucose [Mass/Vol] 83 mg/dL Normal 74-106 [facility] Comment on above: Performed By: #### B MP #### [facility] [address] [place] [address] Dr. Ibis Jimenez Potassium [Moles/Vol] 4.4 mmol/L Normal 3.5-5.1 [facility] Comment on above: Performed By: #### B MP #### [facility] [address] [place] [address] Dr. Ibis Jimenez Sodium [Moles/Vol] 138 mmol/L Normal 136-145 [facility] Comment on above: Performed By: #### B MP #### [facility] [address] [place] [address] Dr. Ibis Jimenez Urea nitrogen [Mass/Vol] 13.0 mg/dL Normal 7.0-18.0 [facility] Comment on above: Performed By: #### B MP #### [facility] [address] [place] [address] Dr. Ibis Jimenez Urea nitrogen/Creatinine [Mass ratio] 18.6 mg/mg Normal [facility] Comment on above: Performed By: #### B MP #### [facility] [address] [place] [address] Dr. Ibis Jimenez URINE MICROSCOPIC ONLYon BACTERIA NONE SEEN Normal NONE SEEN [facility] Comment on above: Performed By: #### A CET, SALYC #### [facility] [address] [place] [address] Dr. Ibis Jimenez Bacteria identified Cx Nom (U) NOT INDICATED Normal [facility] Comment on above: Performed By: #### A CET, SALYC #### [facility] [address] [place] [address] Dr. Ibis Jimenez CAST NONE SEEN Normal NONE SEEN [facility] Comment on above: Performed By: #### A CET, SALYC #### [facility] [address] [place] [address] Dr. Ibis Jimenez Crystals LM Nom (Urine sed) NONE SEEN Normal NONE SEE N [facility] Comment on above: Performed By: #### A CET, SALYC #### [facility] [address] [place] [address] Dr. Ibis Jimenez Epithelial cells LM Ql (Urine sed) FEW Abnormal N ONE SEEN /RARE [facility] Comment on above: Performed By: #### A CET, SALYC #### [facility] [address] [place] [address] Dr. Ibis Jimenez MUCOUS NONE SEEN Normal NONE SEEN [facility] Comment on above: Performed By: #### A CET, SALYC #### [facility] [address] [place] [address] Dr. Ibis Jimenez RBC NONE SEEN Abnormal 0-2 [facility] Comment on above: Performed By: #### A CET, SALYC #### [facility] [address] [place] [address] Dr. Ibis Jimenez WBC NONE SEEN Normal NONE SEEN [facility] Comment on above: Performed By: #### A CET, SALYC #### [facility] [address] [place] [address] Dr. Ibis Jimenez CBC AUTO DIFFon 01-07-2022 BASO # 0.0 103/ul Normal 0.0-0.1 [facility] Comment on above: Performed By: #### A CET, SALYC #### [facility] [address] [place] [address] Dr. Ibis Jimenez Basophils/100 WBC (Bld) 0.2 % Normal 0.2-2.0 [facility] Comment on above: Performed By: #### A CET, SALYC #### [facility] [address] [place] [address] Dr. Ibis Jimenez EO # 0.0 103/ul Normal 0.0-0.7 [facility] Comment on above: Performed By: #### A CET, SALYC #### [facility] [address] [place] [address] Dr. Ibis Jimenez Eosinophils/100 WBC (Bld) 0.4 % Critically low 0.9-7. 0 [facility] Comment on above: Performed By: #### A CET, SALYC #### [facility] [address] [place] [address] Dr. Ibis Jimenez Erythrocyte distribution wid th (RBC) [Ratio] 13.2 % Normal 11.0-15.0 [facility] Comment on above: Performed By: #### A CET, SALYC #### [facility] [address] [place] [address] Dr. Ibis Jimenez Hematocrit (Bld) [Volume fraction] 39.7 % Normal 3 6.0-48.0 [facility] Comment on above: Performed By: #### A CET, SALYC #### [facility] [address] [place] [address] Dr. Ibis Jimenez Hemoglobin (Bld) [Mass/Vol] 13.4 g/dL Normal 12.0-16. 0 [facility] Comment on above: Performed By: #### A CET, SALYC #### [facility] [address] [place] [address] Dr. Ibis Jimenez IG # 0.06 10e3/ul Critically high 0.00-0.03 [facility] Comment on above: Performed By: #### A CET, SALYC #### [facility] [address] [place] [address] Dr. Ibis Jimenez IG % 0.5 % Normal 0.0-0.5 [facility] Comment on above: Performed By: #### A CET, SALYC #### [facility] [address] [place] [address] Dr. Ibis Jimenez LYMPH # 2.6 103/ul Normal 1.2-3.8 [facility] Comment on above: Performed By: #### A CET, SALYC #### [facility] [address] [place] [address] Dr. Ibis Jimenez Lymphocytes/100 WBC (Bld) 23.8 % Normal 20.5-60.0 [facility] Comment on above: Performed By: #### A CET, SALYC #### [facility] [address] [place] [address] Dr. Ibis Jimenez MANUAL DIFF REQ NO Normal [facility] Comment on above: Performed By: #### A CET, SALYC #### [facility] [address] [place] [address] Dr. Ibis Jimenez MCH (RBC) [Entitic mass] 28.8 pg Normal 26.7-34.0 [facility] Comment on above: Performed By: #### A CET, SALYC #### [facility] [address] [place] [address] Dr. Ibis Jimenez MCHC (RBC) [Mass/Vol] 33.8 g/dL Normal 29.9-35.2 [facility] Comment on above: Performed By: #### A CET, SALYC #### [facility] [address] [place] [address] Dr. Ibis Jimenez MCV (RBC) [Entitic vol] 85.2 fL Normal 81.0-99.0 [facility] Comment on above: Performed By: #### A CET, SALYC #### [facility] [address] [place] [address] Dr. Ibis Jimenez MONO # 0.8 103/ul Normal 0.3-0.8 [facility] Comment on above: Performed By: #### A CET, SALYC #### [facility] [address] [place] [address] Dr. Ibis Jimenez Monocytes/100 WBC (Bld) 7.7 % Normal 1.7-12.0 [facility] Comment on above: Performed By: #### A CET, SALYC #### [facility] [address] [place] [address] Dr. Ibis Jimenez NEUT # 7.4 103/ul Critically high 1.4-6.5 [facility] Comment on above: Performed By: #### A CET, SALYC #### [facility] [address] [place] [address] Dr. Ibis Jimenez Neutrophils/100 WBC (Bld) 67.4 % Normal 43.0-75.0 [facility] Comment on above: Performed By: #### A CET, SALYC #### [facility] [address] [place] [address] Dr. Ibis Jimenez Platelet mean volume (Bld) [Entitic vol] 9.8 fL Normal 9.5-13.5 [facility] Comment on above: Performed By: #### A CET, SALYC #### [facility] [address] [place] [address] Dr. Ibis Jimenez PLT 261 103/ul Normal 150-450 [facility] Comment on above: Performed By: #### A CET, SALYC #### [facility] [address] [place] [address] Dr. Ibis Jimenez RBC 4.66 106/ul Normal 4.20-5.40 [facility] Comment on above: Performed By: #### A CET, SALYC #### [facility] [address] [place] [address] Dr. Ibis Jimenez WBC 10.9 103/ul Normal 4.0-11.0 [facility] Comment on above: Performed By: #### A CET, SALYC #### [facility] [address] [place] [address] Dr. Ibis Jimenez PROF CHEM 8 (BAS METB)on Anion gap [Moles/Vol] 14.1 mmol/L Normal Th [facility] Comment on above: Performed By: #### B MP #### [facility] [address] [address] [address] Ibis Jimenez Calcium [Mass/Vol] 8.5 mg/dL Normal 8.5-10.1 [facility] Comment on above: Performed By: #### B MP #### [facility] [address] [address] [address] Ibis Jimenez Chloride [Moles/Vol] 103 mmol/L Normal 98-107 [facility] Comment on above: Performed By: #### B MP #### [facility] [address] [address] [address] Ibis Jimenez CO2 [Moles/Vol] 22.5 mmol/L Normal 21.0-32.0 [facility] Comment on above: Performed By: #### B MP #### [facility] [address] [place] [address] Dr. Ibis Jimenez Creatinine [Mass/Vol] 0.64 mg/dL Normal 0.55-1.02 [facility] Comment on above: Performed By: #### B MP #### [facility] [address] [address] [address] Ibis Jimenez EGFR-AF [facility]CI[facility] >60 Normal >=60 [facility] Comment on above: Performed By: #### B MP #### [facility] [address] [address] [address] Ibis Jimenez EGFR-NON AF [facility] >60 Normal >=60 [facility] Comment on above: Performed By: #### B MP #### [facility] [address] [address] [address] Ibis Jimenez Glucose [Mass/Vol] 141 mg/dL Critically high 74-106 [facility] Comment on above: Performed By: #### B MP #### [facility] [address] [address] [address] Ibis Jimenez Potassium [Moles/Vol] 3.6 mmol/L Normal 3.5-5.1 [facility] Comment on above: Performed By: #### B MP #### [facility] [address] [address] [address] Ibis Jimenez Sodium [Moles/Vol] 136 mmol/L Normal 136-145 [facility] Comment on above: Performed By: #### B MP #### [facility] [address] [place] [address] Dr. Ibis Jimenez Urea nitrogen [Mass/Vol] 16.0 mg/dL Normal 7.0-18.0 [facility] Comment on above: Performed By: #### B MP #### [facility] [address] [place] [address] Dr. Ibis Jimenez Urea nitrogen/Creatinine [Mass ratio] 25.0 mg/mg Normal [facility] Comment on above: Performed By: #### B MP #### [facility] [address] [place] [address] Dr. Ibis Jimenez CBC AUTO DIFFon 11-04-2021 BASO # 0.0 103/ul Normal 0.0-0.1 [facility] Comment on above: Performed By: #### A CET, SALYC #### [facility] [address] [place] [address] Dr. Ibis Jimenez Basophils/100 WBC (Bld) 0.4 % Normal 0.2-2.0 [facility] Comment on above: Performed By: #### A CET, SALYC #### [facility] [address] [place] [address] Dr. Ibis Jimenez EO # 0.2 103/ul Normal 0.0-0.7 [facility] Comment on above: Performed By: #### A CET, SALYC #### [facility] [address] [place] [address] Dr. Ibis Jimenez Eosinophils/100 WBC (Bld) 4.1 % Normal 0.9-7.0 [facility] Comment on above: Performed By: #### A CET, SALYC #### [facility] [address] [place] [address] Dr. Ibis Jimenez Erythrocyte distribution wid th (RBC) [Ratio] 13.2 % Normal 11.0-15.0 [facility] Comment on above: Performed By: #### A CET, SALYC #### [facility] [address] [place] [address] Dr. Ibis Jimenez Hematocrit (Bld) [Volume fraction] 34.3 % Critically low 36.0-48.0 [facility] Comment on above: Performed By: #### A CET, SALYC #### [facility] [address] [place] [address] Dr. Ibis Jimenez Hemoglobin (Bld) [Mass/Vol] 11.5 g/dL Critically low 12.0 -16.0 [facility] Comment on above: Performed By: #### A CET, SALYC #### [facility] [address] [place] [address] Dr. Ibis Jimenez IG # 0.01 10e3/ul Normal 0.00-0.03 [facility] Comment on above: Performed By: #### A CET, SALYC #### [facility] [address] [place] [address] Dr. Ibis Jimenez IG % 0.2 % Normal 0.0-0.5 [facility] Comment on above: Performed By: #### A CET, SALYC #### [facility] [address] [place] [address] Dr. Ibis Jimenez LYMPH # 1.5 103/ul Normal 1.2-3.8 [facility] Comment on above: Performed By: #### A CET, SALYC #### [facility] [address] [place] [address] Dr. Ibis Jimenez Lymphocytes/100 WBC (Bld) 26.4 % Normal 20.5-60.0 [facility] Comment on above: Performed By: #### A CET, SALYC #### [facility] [address] [place] [address] Dr. Ibis Jimenez MANUAL DIFF REQ NO Normal [facility] Comment on above: Performed By: #### A CET, SALYC #### [facility] [address] [place] [address] Dr. Ibis Jimenez MCH (RBC) [Entitic mass] 28.8 pg Normal 26.7-34.0 [facility] Comment on above: Performed By: #### A CET, SALYC #### [facility] [address] [place] [address] Dr. Ibis Jimenez MCHC (RBC) [Mass/Vol] 33.5 g/dL Normal 29.9-35.2 [facility] Comment on above: Performed By: #### A CET, SALYC #### [facility] [address] [place] [address] Dr. Ibis Jimenez MCV (RBC) [Entitic vol] 86.0 fL Normal 81.0-99.0 [facility] Comment on above: Performed By: #### A CET, SALYC #### [facility] [address] [place] [address] Dr. Ibis Jimenez MONO # 0.5 103/ul Normal 0.3-0.8 [facility] Comment on above: Performed By: #### A CET, SALYC #### [facility] [address] [place] [address] Dr. Ibis Jimenez Monocytes/100 WBC (Bld) 8.2 % Normal 1.7-12.0 [facility] Comment on above: Performed By: #### A CET, SALYC #### [facility] [address] [place] [address] Dr. Ibis Jimenez NEUT # 3.4 103/ul Normal 1.4-6.5 [facility] Comment on above: Performed By: #### A CET, SALYC #### [facility] [address] [place] [address] Dr. Ibis Jimenez Neutrophils/100 WBC (Bld) 60.7 % Normal 43.0-75.0 [facility] Comment on above: Performed By: #### A CET, SALYC #### [facility] [address] [place] [address] Dr. Ibis Jimenez Platelet mean volume (Bld) [Entitic vol] 9.9 fL Normal 9.5-13.5 [facility] Comment on above: Performed By: #### A CET, SALYC #### [facility] [address] [address] [address] Ibis Jimenez PLT 222 103/ul Normal 150-450 [facility] Comment on above: Performed By: #### A CET, SALYC #### [facility] [address] [address] [address] Ibis Jimenez RBC 3.99 106/ul Critically low 4.20-5.40 [facility] Comment on above: Performed By: #### A CET, SALYC #### [facility] [address] [place] [address] Dr. Ibsi Jimenez WBC 5.6 103/ul Normal 4.0-11.0 [facility] Comment on above: Performed By: #### A CET, SALYC #### [facility] [address] [place] [address] Dr. Ibis Jimenez PROF CHEM 8 (BAS METB)on Anion gap [Moles/Vol] 10.5 mmol/L Normal [facility] Comment on above: Performed By: #### B MP #### [facility] [address] [place] [address] Dr. Ibis Jimenez Calcium [Mass/Vol] 8.8 mg/dL Normal 8.5-10.1 [facility] Comment on above: Performed By: #### B MP #### [facility] [address] [place] [address] Dr. Ibis Jimenez Chloride [Moles/Vol] 105 mmol/L Normal 98-107 [facility] Comment on above: Performed By: #### B MP #### [facility] [address] [place] [address] Dr. Ibis Jimenez CO2 [Moles/Vol] 24.9 mmol/L Normal 21.0-32.0 [facility] Comment on above: Performed By: #### B MP #### [facility] [address] [place] [address] Dr. Ibis Jimenez Creatinine [Mass/Vol] 0.71 mg/dL Normal 0.55-1.02 [facility] Comment on above: Performed By: #### B MP #### [facility] [address] [address] [address] Ibis Jimenez EGFR-AF [facility] >60 Normal >=60 [facility] Comment on above: Performed By: #### B MP #### [facility] [address] [address] [address] Ibis Jimenez EGFR-NON AF [facility] >60 Normal >=60 [facility] Comment on above: Performed By: #### B MP #### [facility] [address] [address] [address] Ibis Jimenez Glucose [Mass/Vol] 103 mg/dL Normal 74-106 [facility] Comment on above: Performed By: #### B MP #### [facility] [address] [address] [address] Ibis Jimenez Potassium [Moles/Vol] 3.4 mmol/L Critically low 3.5-5.1 [facility] Comment on above: Performed By: #### B MP #### [facility] [address] [address] [address] Ibis Jimenez Sodium [Moles/Vol] 137 mmol/L Normal 136-145 [facility] Comment on above: Performed By: #### B MP #### [facility] [address] [address] [address] Ibis Jimenez Urea nitrogen [Mass/Vol] 17.0 mg/dL Normal 7.0-18.0 [facility] Comment on above: Performed By: #### B MP #### [facility] [address] [address] [address] Ibis Jimenez Urea nitrogen/Creatinine [Mass ratio] 23.9 mg/mg Normal [facility] Comment on above: Performed By: #### B MP #### [facility] [address] [address] [address] Ibis Jimenez Basic Metab w/rfx MGon 10-20 (cont.) Normal [facility] [place] Comment on above: Result Comment: Aver age GFR for 20-29 years old: 116 mL/min/1.73sq m Chronic Kidney Disease: <60 mL/min/1.73sq m Kidney failure: <15 mL/min/1.73sq m eGFR calculated using average adult body mass. Additional eGFR calculator available at: http://www.Electrikus/multiple_crcl_2012.htm Performed By: #### B MPX #### [address] [address] Global Compensation Director: Tavon Nicole MD Anion gap [Moles/Vol] 10 mmol/L Normal 9-17 [facility] Comment on above: Performed By: #### B MPX #### [address] [address] Global Compensation Director: Tavon Nicole MD Calcium [Mass/Vol] 7.8 mg/dL Low 8.6-10.4 [facility] Comment on above: Performed By: #### B MPX #### [address] [address] Global Compensation Director: Tavon Nicole MD Chloride [Moles/Vol] 109 mmol/L High 98-107 [facility] Comment on above: Performed By: #### B MPX #### [address] [address] Global Compensation Director: Tavon Nicole MD CO2 [Moles/Vol] 20 mmol/L Normal 20-31 [facility] Comment on above: Performed By: #### B MPX #### [address] [address] Global Compensation Director: Tavon Nicole MD Creatinine [Mass/Vol] 0.45 mg/dL Low 0.50-0.90 [facility] Comment on above: Performed By: #### B MPX #### [address] [address] Global Compensation Director: Tavon Nicole MD GFR, Amer >60 Normal >60 [facility] Comment on above: Performed By: #### B MPX #### [address] [address] Global Compensation Director: Tavon Nicole MD GFR,non Amer >60 Normal >60 [facility] Comment on above: Performed By: #### B MPX #### [address] [address] Global Compensation Director: Tavon Nicole MD Glucose [Mass/Vol] 84 mg/dL Normal 70-99 [facility] Comment on above: Performed By: #### B MPX #### [address] [address] Global Compensation Director: Tavon Nicole MD Potassium [Moles/Vol] 4.1 mmol/L Normal 3.7-5.3 [facility] Comment on above: Result Comment: SPEC IMEN SLIGHTLY HEMOLYZED, RESULTS MAY BE ADVERSELY AFFECTED. Performed By: #### B MPX #### [address] [address] Global Compensation Director: Tavon Nicole MD Sodium [Moles/Vol] 139 mmol/L Normal 135-144 [facility] Comment on above: Performed By: #### B MPX #### [address] [address] Global Compensation Director: Tavon Nicole MD Urea nitrogen [Mass/Vol] 8 mg/dL Normal 6-20 [facility] Comment on above: Performed By: #### B MPX #### [facility] [address] [place] [id number] Global Compensation Director: Tavon Nicole MD Basic Metabolic Panel w/ Ref rossi to MGon 10-20-2021 Anion gap [Moles/Vol] 10 mmol/L 9 - 17 mmol/L [facility] Calcium [Mass/Vol] 7.8 mg/dL Low 8.6 - 10.4 mg/dL [facility] Chloride [Moles/Vol] 109 mmol/L High 98 - 107 mmol/L [facility] CO2 [Moles/Vol] 20 mmol/L 20 - 31 mmol/L [facility] Creatinine [Mass/Vol] 0.45 mg/dL Low 0.5 - 0.9 mg/d L [facility] GFR >60 60 - PINF mL/mi n [facility] GFR Non- >60 60 - PINF m L/min [facility] GFR/1.73 sq M.predicted MDRD (S/P/Bld) [Vol rate/Area] [facility] Comment on above: Average GFR for 20-2 9 years old: 116 mL/min/1.73sq m Chronic Kidney Disease: <60 mL/min/1.73sq m Kidney failure: <15 mL/min/1.73sq m eGFR calculated using average adult body mass. Additional eGFR calculator available at: http://www.Electrikus/multiple_crcl_2012.htm Glucose [Mass/Vol] 84 mg/dL 70 - 99 mg/dL [facility] Interpretation and review of laboratory results Abnormal [facility] Potassium [Moles/Vol] 4.1 mmol/L 3.7 - 5.3 mmol /L [facility] Comment on above: SPECIMEN SLIGHTLY HE MOLYZED, RESULTS MAY BE ADVERSELY AFFECTED. Sodium [Moles/Vol] 139 mmol/L 135 - 144 mmol/L [facility] Urea nitrogen (BldV) [Mass/Vol] 8 mg/dL 6 - 20 mg/dL [facility] CBC with Auto Differentialon 10-20-2021 Absolute Eos # 0.15 [facility] Absolute Immature Granulocyte [facility] Absolute Lymph # 1.48 [facility] Absolute Murray # 0.[address] [facility] Basophils (Bld) [#/Vol] 0.03 10*3/uL [facility] Basophils/100 WBC (Bld) 1 % 0 - 2 % B [facility] Eosinophils/100 WBC (Bld) 3 % 1 - 4 % [facility] Hematocrit (Bld) [Volume fraction] 35.5 % Low 36.3 - 47.1 % [facility] Hemoglobin (Bld) [Mass/Vol] 11.3 g/dL Low 11.9 - 15.1 g/dL [facility] Immature granulocytes/100 WBC (Bld) 0 % 0 [facility] Interpretation and review of laboratory results Abnormal [facility] Lymphocytes/100 WBC (Bld) 34 % 24 - 43 % [facility] MCH (RBC) [Entitic mass] 27.9 pg 25.2 - 33.5 pg [facility] MCHC (RBC) [Mass/Vol] 31.8 g/dL 28.4 - 34.8 g/dL [facility] MCV (RBC) [Entitic vol] 87.7 fL 82.6 - 102.9 fL [facility] Monocytes/100 WBC (Bld) 6 % 3 - 12 % B [facility] NRBC Automated 0.0 0.0 per 100 WBC [facility] Platelet distribution width (Bld) [Ratio] 12.9 % 11.8 - 14.4 % [facility] Platelets (Bld) [#/Vol] See Reflexed IPF Result [facility] RBC (Bld) [#/Vol] 4.05 10*6/uL 3.95 - 5.1 1 m/uL [facility] Segmented neutrophils/100 WBC (Bld) 55 % 36 - 65 % [facility] Segs Absolute 2.42 [facility] WBC (Bld) [#/Vol] 4.4 10*3/uL [facility] CBC with Diffon 10-20-2021 Abs. Basophil 0.03 k/uL Normal 0.00-0.20 [facility] Comment on above: Performed By: #### C DP, IPF #### [facility] [place], [place] [id number] Global Compensation Director: Tavon Nicole MD Abs.Imm.Granulocyte <0.03 Normal 0.00-0.30 [facility] Comment on above: Performed By: #### C DP, IPF #### [address] [address] Global Compensation Director: Tavon Nicole MD Abs.Neutrophil (Seg) 2.42 k/uL Normal 1.50-8.10 [facility] Comment on above: Performed By: #### C DP, IPF #### [address] [address] Global Compensation Director: Tavon Nicole MD Basophils/100 WBC (Bld) 1 % Normal 0-2 [facility] Comment on above: Performed By: #### C DP, IPF #### [place] [address] Global Compensation Director: Tavon Nicole MD Eosinophils (Bld) [#/Vol] 0.15 10*3/uL Normal 0.00-0.4 4 [facility] Comment on above: Performed By: #### C DP, IPF #### [address] [address] Global Compensation Director: Tavon Nicole MD Eosinophils/100 WBC (Bld) 3 % Normal 1-4 [facility] Comment on above: Performed By: #### C DP, IPF #### [address] [address] Global Compensation Director: Tavon Nicole MD Immature granulocytes/100 WBC (Bld) 0 % Normal 0 [facility] Comment on above: Performed By: #### C DP, IPF #### [place] [address] Global Compensation Director: Tavon Nicole MD Lymphocytes (Bld) [#/Vol] 1.48 10*3/uL Normal 1.10-3.7 0 [facility] Comment on above: Performed By: #### C DP, IPF #### [address] [address] Global Compensation Director: Tavon Nicole MD Lymphocytes/100 WBC (Bld) 34 % Normal 24-43 [facility] Comment on above: Performed By: #### C DP, IPF #### [address] [address] Global Compensation Director: Tavon Nicole MD Monocytes (Bld) [#/Vol] 0.28 10*3/uL Normal 0.10-1.20 [facility] Comment on above: Performed By: #### C DP, IPF #### [address] [address] Global Compensation Director: Tavon Nicole MD Monocytes/100 WBC (Bld) 6 % Normal 3-12 [facility] Comment on above: Performed By: #### C DP, IPF #### [address] [address] Global Compensation Director: Tavon Nicole MD Neutrophil (Seg) 55 % Normal 36-65 [facility] Comment on above: Performed By: #### C DP, IPF #### [address] [address] Global Compensation Director: Tavon Nicole MD Erythrocyte distribution wid th (RBC) [Ratio] 12.9 % Normal 11.8-14.4 [facility] Comment on above: Performed By: #### C DP, IPF #### [address] [address] Global Compensation Director: Tavon Nicole MD Hematocrit (Bld) [Volume fraction] 35.5 % Low 3 6.3-47.1 [facility] Comment on above: Performed By: #### C DP, IPF #### [address] [address] Global Compensation Director: Tavon Nicole MD Hemoglobin (Bld) [Mass/Vol] 11.3 g/dL Low 11.9-15. 1 [facility] Comment on above: Performed By: #### C DP, IPF #### [address] [address] Global Compensation Director: Tavon Nicole MD MCH (RBC) [Entitic mass] 27.9 pg Normal 25.2-33.5 [facility] Comment on above: Performed By: #### C DP, IPF #### [address] [address] Global Compensation Director: Tavon Nicole MD MCHC (RBC) [Mass/Vol] 31.8 g/dL Normal 28.4-34.8 [facility] Comment on above: Performed By: #### C DP, IPF #### [place] [address] Global Compensation Director: Tavon Nicole MD MCV (RBC) [Entitic vol] 87.7 fL Normal 82.6-102.9 [facility] Comment on above: Performed By: #### C DP, IPF #### [address] [address] Global Compensation Director: Tavon Nicole MD NRBC Automated 0.0 per 100 WBC Normal 0.0 [facility] Comment on above: Performed By: #### C DP, IPF #### [place] [address] Global Compensation Director: Tavon Nicole MD Platelet Count See Reflexed IPF Result Normal 138-453 [facility] Comment on above: Performed By: #### C DP, IPF #### [address] [address] Global Compensation Director: Tavon Nicole MD RBC (Bld) [#/Vol] 4.05 10*6/uL Normal 3.95-5.11 [facility] Comment on above: Performed By: #### C DP, IPF #### [facility] [address] [place] [address] Global Compensation Director: Tavon Nicole MD WBC (Bld) [#/Vol] 4.4 10*3/uL Normal 3.5-11.3 [facility] Comment on above: Performed By: #### C DP, IPF #### [facility] [address] [place] [address] Global Compensation Director: Tavon Nicole MD EEG video monitoringon 10-20 Raiza Land MD 12:11 PM Referring physician: Chris Blanchard APRN Date:10/20/2021 Start Time:10/19/2021 @1258 End Time: 10/20/2021 @ 1200 Indication Patient with recurrent events Introduction This continuous video-EEG was acquired using a PostedIn workstation at 256 samples/s. Electrodes were placed according to the International 10-20 system. Automated spike and seizure detection algorithms were applied. Video was recorded during this study. Description During the maximal alert state, a well-regulated 9 Hz posterior dominant rhythm was seen which was symmetrical and attenuated to eye opening. No consistent focal slowing or interhemispheric asymmetry was noted. Normal sleep structures were observed. There were no interictal epileptiform discharges or electrographic seizures. Events 10/19/2021 @ 1806 and 1935 Clinically: sudden onset, rapid moderate amplitude head shaking, started side to side then variable direction, eyes were closed on first event then was intermittently open during the seconds event, hands flapping not in synchrony then sudden stop. At times event the activity were variable unique mpltide ans frequency. EEG: showed motion and EMG artifact, it has sudden onset and offset, no post event slowing. Impression Normal continuous video-EEG. The events that were captured did not correlate with epileptic seizures. No epileptiform discharges were identified. Please note the absence of such activity in this record cannot conclusively rule out an epileptic disorder. If such is still clinically suspected, a repeat study with prolonged sampling may be helpful. Raiza Land MD Epilepsy Board Certified. Neurology Board Certified. Electronically Signed JEREMIAH MCKAY Work Phone: EEG video monitoringOrdered By: Raiza Land on 10-20-[address] [facility] [employer] Work Phone: Immature Platelet Fractionon 10-20-2021 Platelet, Fluorescence Platelet clumps p resent, count appears adequate. [facility] [employer] PLT, Immature Fract.on 10-20 Platelet, Fluoresc. Platelet clumps pres ent, count appears adequate. Normal 138-453 [facility] Comment on above: Performed By: #### C DP, IPF #### [facility] [address] [place] [id number] Global Compensation Director: Tavon Nicole MD PROLACTINon 10-20-2021 Prolactin 41.7 ng/mL Critically high 4.8-23.3 [facility] Comment on above: Performed By: #### C VDTBH #### [facility] [address] [place], [place] [address] Dr. Ibis Jimenez CBCon 10-19-2021 Erythrocyte distribution wid th (RBC) [Ratio] 12.9 % Normal 11.8-14.4 [facility] Comment on above: Performed By: #### T ROPI, LACTIC, CMPX, CBC #### [facility] [address] [place] [phone] Global Compensation Director: Tavon Nicole MD Hematocrit (Bld) [Volume fraction] 31.5 % Low 3 6.3-47.1 [facility] Comment on above: Performed By: #### T ROPI, LACTIC, CMPX, CBC #### [facility] [address] [place] [address] Global Compensation Director: Tavon Nicole MD Hemoglobin (Bld) [Mass/Vol] 10.8 g/dL Low 11.9-15. 1 [facility] Comment on above: Performed By: #### T ROPI, LACTIC, CMPX, CBC #### [facility] [address] [place] [id number] Global Compensation Director: Tavon Nicole MD MCH (RBC) [Entitic mass] 29.1 pg Normal 25.2-33.5 [facility] Comment on above: Performed By: #### T ROPI, LACTIC, CMPX, CBC #### [address] [address] Global Compensation Director: Tavon Nicole MD MCHC (RBC) [Mass/Vol] 34.3 g/dL Normal 28.4-34.8 [facility] Comment on above: Performed By: #### T ROPI, LACTIC, CMPX, CBC #### [address] [address] Global Compensation Director: Tavon Nicole MD MCV (RBC) [Entitic vol] 84.9 fL Normal 82.6-102.9 M [facility] Comment on above: Performed By: #### T ROPI, LACTIC, CMPX, CBC #### [address] [address] Global Compensation Director: Tavon Nicole MD NRBC Automated 0.0 per 100 WBC Normal 0.0 [facility] Comment on above: Performed By: #### T ROPI, LACTIC, CMPX, CBC #### [address] [address] Global Compensation Director: Tavon Nicole MD Platelet mean volume (Bld) [Entitic vol] 9.8 fL Normal 8.1-13.5 [facility] Comment on above: Performed By: #### T ROPI, LACTIC, CMPX, CBC #### [address] [address] Global Compensation Director: Tavon Nicole MD Platelets (Bld) [#/Vol] 281 10*3/uL Normal 138-453 [facility] Comment on above: Performed By: #### T ROPI, LACTIC, CMPX, CBC #### [address] [place] [phone] Global Compensation Director: Tavon Nicole MD RBC (Bld) [#/Vol] 3.71 10*6/uL Low 3.95-5.11 [facility] Comment on above: Performed By: #### T ROPI, LACTIC, CMPX, CBC #### [facility] [address] [place], [place] [phone] Global Compensation Director: Tavon Nicole MD WBC (Bld) [#/Vol] 5.0 10*3/uL Normal 3.5-11.3 [facility] Comment on above: Performed By: #### T ROPI, LACTIC, CMPX, CBC #### [facility] [address] [place], [place] [phone] Global Compensation Director: Tavon Nicole MD Hematocrit (Bld) [Volume fraction] 31.5 % Low 36.3 - 47.1 % [facility] Hemoglobin (Bld) [Mass/Vol] 10.8 g/dL Low 11.9 - 1 5.1 g/dL [facility] Interpretation and review of laboratory results Abnormal [facility] MCH (RBC) [Entitic mass] 29.1 pg 25.2 - 33.5 pg [facility] MCHC (RBC) [Mass/Vol] 34.3 g/dL 28.4 - 34.8 g/ dL [facility] MCV (RBC) [Entitic vol] 84.9 fL 82.6 - 102.9 fL [facility] NRBC Automated 0.0 0.0 per 100 WBC [facility] Platelet distribution width (Bld) [Ratio] 12.9 % 11.8 - 14.4 % [facility] Platelet mean volume (Bld) [Entitic vol] 9.8 fL 8.1 - 13.5 fL [facility] Platelets (Bld) [#/Vol] 281 10*3/uL [facility] RBC (Bld) [#/Vol] 3.71 10*6/uL Low 3.95 - 5.11 m/uL [facility] WBC (Bld) [#/Vol] 5.0 10*3/uL [facility] CBC AUTO DIFFon 10-19-2021 EO # 0.2 103/ul Normal 0.0-0.7 [facility] Comment on above: Performed By: #### A MM #### [facility] [address] [place] [address] Dr. Ibis Jimenez Eosinophils/100 WBC (Bld) 3.9 % Normal 0.9-7.0 [facility] Comment on above: Performed By: #### A MM #### [facility] [address] [place] [address] Dr. Ibis Jimenez Erythrocyte distribution wid th (RBC) [Ratio] 13.1 % Normal 11.0-15.0 [facility] Comment on above: Performed By: #### A MM #### [facility] [address] [place] [address] Dr. Ibis Jimenez Hematocrit (Bld) [Volume fraction] 33.4 % Critically low 36.0-48.0 [facility] Comment on above: Performed By: #### A MM #### [facility] [address] [place] [address] Dr. Ibis Jimenez Hemoglobin (Bld) [Mass/Vol] 11.1 g/dL Critically low 12.0 -16.0 [facility] Comment on above: Performed By: #### A MM #### [facility] [address] [place] [address] Dr. Ibis Jimenez LYMPH # 1.2 103/ul Normal 1.2-3.8 [facility] Comment on above: Performed By: #### A MM #### [facility] [address] [place] [address] Dr. Ibis Jimenez Lymphocytes/100 WBC (Bld) 25.9 % Normal 20.5-60.0 [facility] Comment on above: Performed By: #### A MM #### [facility] [address] [place] [address] Dr. Ibis Jimenez MCHC (RBC) [Mass/Vol] 33.2 g/dL Normal 29.9-35.2 [facility] Comment on above: Performed By: #### A MM #### [facility] [address] [place] [address] Dr. Ibis Jimenez MCV (RBC) [Entitic vol] 85.9 fL Normal 81.0-99.0 [facility] Comment on above: Performed By: #### A MM #### [facility] [address] [place] [address] Dr. Ibis Jimenez Monocytes/100 WBC (Bld) 7.7 % Normal 1.7-12.0 [facility] Comment on above: Performed By: #### A MM #### [facility] [address] [place] [address] Dr. Ibis Jimenez NEUT # 2.9 103/ul Normal 1.4-6.5 [facility] Comment on above: Performed By: #### A MM #### [facility] [address] [place] [address] Dr. Ibis Jimenez Neutrophils/100 WBC (Bld) 61.5 % Normal 43.0-75.0 [facility] Comment on above: Performed By: #### A MM #### [facility] [address] [place] [address] Dr. Ibis Jimenez PLT 264 103/ul Normal 150-450 [facility] Comment on above: Performed By: #### A MM #### [facility] [address] [place] [address] Dr. Ibis Jimenez RBC 3.89 106/ul Critically low 4.20-5.40 [facility] Comment on above: Performed By: #### A MM #### [facility] [address] [place] [address] Dr. Ibis Jimenez WBC 4.7 103/ul Normal 4.0-11.0 [facility] Comment on above: Performed By: #### A MM #### [facility] [address] [place] [address] Dr. Ibis Jimenez BASO # 0.0 103/ul Normal 0.0-0.1 [facility] Comment on above: Performed By: #### A MM #### [facility] [address] [place] [address] Dr. Ibis Jmienez Performed By: #### C VDTBH #### [facility] [address] [place] [address] Dr. Ibis Jimenez Basophils/100 WBC (Bld) 0.6 % Normal 0.2-2.0 [facility] Comment on above: Performed By: #### A MM #### [facility] [address] [place] [address] Dr. Ibis Jimenez Performed By: #### C VDTBH #### [facility] [address] [place] [address] Dr. Ibis Jimenez EO # 0.3 103/ul Normal 0.0-0.7 [facility] Comment on above: Performed By: #### C VDTBH #### [facility] [address] [place] [address] Dr. Ibis Jimenez Eosinophils/100 WBC (Bld) 5.0 % Normal 0.9-7.0 [facility] Comment on above: Performed By: #### C VDTBH #### [facility] [address] [place] [address] Dr. Ibis Jimenez Erythrocyte distribution wid th (RBC) [Ratio] 12.8 % Normal 11.0-15.0 [facility] Comment on above: Performed By: #### C VDTBH #### [facility] [address] [place] [address] Dr. Ibis Jimenez Hematocrit (Bld) [Volume fraction] 38.0 % Normal 3 6.0-48.0 [facility] Comment on above: Performed By: #### C VDTBH #### [facility] [address] [place] [address] Dr. Ibis Jimenez Hemoglobin (Bld) [Mass/Vol] 12.7 g/dL Normal 12.0-16. 0 [facility] Comment on above: Performed By: #### C VDTBH #### [facility] [address] [place] [address] Dr. Ibis Jimenez IG # 0.02 10e3/ul Normal 0.00-0.03 [facility] Comment on above: Performed By: #### A MM #### [facility] [address] [place] [address] Dr. Ibis Jimenez Performed By: #### C VDTBH #### [facility] [address] [place] [address] Dr. Ibis Jimenez IG % 0.4 % Normal 0.0-0.5 [facility] Comment on above: Performed By: #### A MM #### [facility] [address] [place] [address] Dr. Ibis Jimenez Performed By: #### C VDTBH #### [facility] [address] [place] [address] Dr. Ibis Jimenez LYMPH # 1.7 103/ul Normal 1.2-3.8 [facility] Comment on above: Performed By: #### C VDTBH #### [facility] [address] [place] [address] Dr. Ibis Jimenez Lymphocytes/100 WBC (Bld) 30.7 % Normal 20.5-60.0 [facility] Comment on above: Performed By: #### C VDTBH #### [facility] [address] [place] [address] Dr. Ibis Jimenez MANUAL DIFF REQ NO Normal [facility] Comment on above: Performed By: #### A MM #### [facility] [address] [place] [address] Dr. Ibis Jimenez Performed By: #### C VDTBH #### [facility] [address] [place] [address] Dr. Ibis Jimenez MCH (RBC) [Entitic mass] 28.5 pg Normal 26.7-34.0 [facility] Comment on above: Performed By: #### A MM #### [facility] [address] [place] [address] Dr. Ibis Jimenez Performed By: #### C VDTBH #### [facility] [address] [place] [address] Dr. Ibis Jimenez MCHC (RBC) [Mass/Vol] 33.4 g/dL Normal 29.9-35.2 [facility] Comment on above: Performed By: #### C VDTBH #### [facility] [address] [place] [address] Dr. Ibis Jimenez MCV (RBC) [Entitic vol] 85.2 fL Normal 81.0-99.0 [facility] Comment on above: Performed By: #### C VDTBH #### [facility] [address] [place] [address] Dr. Ibis Jimenez MONO # 0.4 103/ul Normal 0.3-0.8 [facility] Comment on above: Performed By: #### A MM #### [facility] [address] [place] [address] Dr. Ibis Jimenez Performed By: #### C VDTBH #### [facility] [address] [place] [address] Dr. Ibis Jimenez Monocytes/100 WBC (Bld) 8.1 % Normal 1.7-12.0 [facility] Comment on above: Performed By: #### C VDTBH #### [facility] [address] [place] [address] Dr. Ibis Jimenez NEUT # 3.0 103/ul Normal 1.4-6.5 [facility] Comment on above: Performed By: #### C VDTBH #### [facility] [address] [place] [address] Dr. Ibis Jimenez Neutrophils/100 WBC (Bld) 55.2 % Normal 43.0-75.0 [facility] Comment on above: Performed By: #### C VDTBH #### [facility] [address] [place] [address] Dr. Ibis Jimenez Platelet mean volume (Bld) [Entitic vol] 9.5 fL Normal 9.5-13.5 [facility] Comment on above: Performed By: #### A MM #### [facility] [address] [place] [address] Dr. Ibis Jimenez Performed By: #### C VDTBH #### [facility] [address] [place] [address] Dr. Ibis Jimenez PLT 343 103/ul Normal 150-450 [facility] Comment on above: Performed By: #### C VDTBH #### [facility] [address] [place] [address] Dr. Ibis Jimenez RBC 4.46 106/ul Normal 4.20-5.40 [facility] Comment on above: Performed By: #### C VDTBH #### [facility] [address] [place] [address] Dr. Ibis Jimenez WBC 5.4 103/ul Normal 4.0-11.0 [facility] Comment on above: Performed By: #### C VDTBH #### [facility] [address] [place] [address] HEAD WO CONon 10-19-2021 CT HEAD WO CON EXAMINATION: CT HEAD WO CON HISTORY: seizures COMPARISON: CT head 04/07/2021 TECHNIQUE: Axial CT images were obtained without IV contrast. Dose reduction techniques were achieved by using automated exposure control and/or adjustment of mA and/or kV according to patient size and/or use of iterative reconstruction technique. FINDINGS: BRAIN: No edema, hemorrhage, mass, acute infarction, or inappropriate atrophy. CSF SPACES: No hydrocephalus, subarachnoid hemorrhage, or mass. Appropriate for age. SKULL: No fracture, mass, or other significant visible lesion. SINUSES: No significant mucosal thickening or fluid on the limited views. ORBITS: No appreciable abnormality on the limited views. OTHER: Negative IMPRESSION: 1. No intracranial hemorrhage or appreciable acute abnormality. 2. Unremarkable CT study of the brain. Consider follow-up MRI. Electronically authenticated by: LOPEZ REYNOLDS Date: 2021-10-19 07:31 Normal [facility] Comp Metabolic Pr/rfx MGon 0 10-19-2021 (cont.) Normal [facility] Comment on above: Result Comment: Aver age GFR for 20-29 years old: 116 mL/min/1.73sq m Chronic Kidney Disease: <60 mL/min/1.73sq m Kidney failure: <15 mL/min/1.73sq m eGFR calculated using average adult body mass. Additional eGFR calculator available at: http://www.[employer]ot/multiple_crcl_2012.htm Performed By: #### T ROPI, LACTIC, CMPX, CBC #### [facility] [address] [place] [phone] Global Compensation Director: Tavon Nicole MD Albumin [Mass/Vol] 3.5 g/dL Normal 3.5-5.2 [facility] Comment on above: Performed By: #### T ROPI, LACTIC, CMPX, CBC #### [facility] [address] [place] [phone] Global Compensation Director: Tavon Nicole MD Albumin/Glob Ratio 1.4 Normal 1.0-2.5 [facility] Comment on above: Performed By: #### T ROPI, LACTIC, CMPX, CBC #### [facility] [address] [place] [phone] Global Compensation Director: Tavon Nicole MD Alkaline Phos 69 U/L Normal 35-104 [facility] Comment on above: Performed By: #### T ROPI, LACTIC, CMPX, CBC #### [facility] [address] [place] [phone] Global Compensation Director: Tavon Nicole MD ALT [Catalytic activity/Vol] 15 U/L Normal 5-33 [facility] Comment on above: Performed By: #### T ROPI, LACTIC, CMPX, CBC #### [facility] [address] [place] [phone] Global Compensation Director: Tavon Nicole MD Anion gap [Moles/Vol] 13 mmol/L Normal 9-17 [facility] Comment on above: Performed By: #### T ROPI, LACTIC, CMPX, CBC #### [facility] [address] [place] [phone] Global Compensation Director: Tavon Nicole MD AST [Catalytic activity/Vol] 12 U/L Normal <32 [facility] Comment on above: Performed By: #### T ROPI, LACTIC, CMPX, CBC #### [address] [address] Global Compensation Director: Tavon Nicole MD Bilirubin [Mass/Vol] 0.24 mg/dL Low 0.3-1.2 [facility] Comment on above: Performed By: #### T ROPI, LACTIC, CMPX, CBC #### [address] [address] Global Compensation Director: Tavon Nicole MD Calcium [Mass/Vol] 8.1 mg/dL Low 8.6-10.4 [facility] Comment on above: Performed By: #### T ROPI, LACTIC, CMPX, CBC #### [address] [address] Global Compensation Director: Tavon Nicole MD Chloride [Moles/Vol] 107 mmol/L Normal 98-107 [facility] Comment on above: Performed By: #### T ROPI, LACTIC, CMPX, CBC #### [address] [address] Global Compensation Director: Tavon Nicole MD CO2 [Moles/Vol] 19 mmol/L Low 20-31 [facility] Comment on above: Performed By: #### T ROPI, LACTIC, CMPX, CBC #### [facility] [address] [place] [phone] Global Compensation Director: Tavon Nicole MD Creatinine [Mass/Vol] 0.53 mg/dL Normal 0.50-0.90 [facility] Comment on above: Performed By: #### T ROPI, LACTIC, CMPX, CBC #### [facility] [address] [place] [address] [place] [address] Global Compensation Director: Tavon Nicole MD GFR, Amer >60 Normal >60 [facility] Comment on above: Performed By: #### T ROPI, LACTIC, CMPX, CBC #### [facility] [address] [place] [phone] Global Compensation Director: Tavon Nicole MD GFR,non Amer >60 Normal >60 [facility] Comment on above: Performed By: #### T ROPI, LACTIC, CMPX, CBC #### [facility] [address] [place] [phone] Global Compensation Director: Tavon Nicole MD Glucose [Mass/Vol] 81 mg/dL Normal 70-99 [facility] Comment on above: Performed By: #### T ROPI, LACTIC, CMPX, CBC #### [facility] [address] [place] [phone] Global Compensation Director: Tavon Nicole MD Potassium [Moles/Vol] 3.9 mmol/L Normal 3.7-5.3 [facility] Comment on above: Performed By: #### T ROPI, LACTIC, CMPX, CBC #### [facility] [address] [place] [phone] Global Compensation Director: Tavon Nicole MD Protein [Mass/Vol] 6.0 g/dL Low 6.4-8.3 [facility] Comment on above: Performed By: #### T ROPI, LACTIC, CMPX, CBC #### [facility] [address] [place] [phone] Global Compensation Director: Tavon Nicole MD Sodium [Moles/Vol] 139 mmol/L Normal 135-144 [facility] Comment on above: Performed By: #### T ROPI, LACTIC, CMPX, CBC #### [facility] [address] [place] [phone] Global Compensation Director: Tavon Nicole MD Urea nitrogen [Mass/Vol] 10 mg/dL Normal 6-20 [facility] Comment on above: Performed By: #### T ROPI, LACTIC, CMPX, CBC #### [facility] [address] [place] [address] Global Compensation Director: Tavon Nicole MD Comprehensive Metabolic Pane l w/ Reflex to MGon 10-19-2021 Albumin [Mass/Vol] 3.5 g/dL 3.5 - 5.2 g/dL [facility] Albumin/Globulin [Mass ratio] 1.4 {ratio} 1 - 2.5 [facility] ALP (Bld) [Catalytic activity/Vol] 69 U/L 35 - 104 U/L [facility] ALT [Catalytic activity/Vol] 15 U/L 5 - 33 U/L [facility] Anion gap [Moles/Vol] 13 mmol/L 9 - 17 mmol/L [facility] AST [Catalytic activity/Vol] 12 U/L NINF - 32 U/L [facility] Bilirubin [Mass/Vol] 0.24 mg/dL Low 0.3 - 1.2 mg/dL [facility] Calcium [Mass/Vol] 8.1 mg/dL Low 8.6 - 10.4 mg/dL [facility] Chloride [Moles/Vol] 107 mmol/L 98 - 107 mmol/L [facility] CO2 [Moles/Vol] 19 mmol/L Low 20 - 31 mmol/L [facility] Creatinine [Mass/Vol] 0.53 mg/dL 0.5 - 0.9 mg/d L [facility] Free PSA/Total PSA [Mass fraction] 6.0 g/dL Low 6.4 - 8.3 g/dL [facility] GFR >60 60 - PINF mL/mi n [facility] GFR Non- >60 60 - PINF m L/min [facility] GFR/1.73 sq M.predicted MDRD (S/P/Bld) [Vol rate/Area] [facility] Comment on above: Average GFR for 20-2 9 years old: 116 mL/min/1.73sq m Chronic Kidney Disease: <60 mL/min/1.73sq m Kidney failure: <15 mL/min/1.73sq m eGFR calculated using average adult body mass. Additional eGFR calculator available at: http://www.[employer]/multiple_crcl_2012.htm Glucose [Mass/Vol] 81 mg/dL 70 - 99 mg/dL [facility] Interpretation and review of laboratory results Abnormal [facility] Potassium [Moles/Vol] 3.9 mmol/L 3.7 - 5.3 mmol /L [facility] Sodium [Moles/Vol] 139 mmol/L 135 - 144 mmol/L [facility] Urea nitrogen (BldV) [Mass/Vol] 10 mg/dL 6 - 20 mg/dL [facility] Covid-19 PCR ([facility])on 09-22 SARS-CoV-2 (COVID-19) RNA SAURABH+probe Ql (Unsp spec) Not detected Normal NOT DETECTED [facility] Comment on above: Result Comment: When diagnostic testing is negative, the possibility of a false negative should be considered in the context of a patient's recent exposures and the presence of clinical signs and symptoms consistent with SARS-CoV-2. This test is not yet approved or cleared by the [place] FDA. When there are no FDA-approved or cleared tests available, and other criteria are met, FDA can make tests available under an emergency access mechanism called an Emergency Use Authorization (EUA). The EUA for this test is supported by the [employer] of Health and Human Service's declaration that circumstances exist to justify the emergency use of in vitro diagnostics for the detection and/or diagnosis of the virus that causes COVID-19. This EUA will remain in effect for the duration of the COVID-19 declaration justifying emergency of IVDs, unless it is terminated or revoked by the FDA (after which the test may no longer be used). Performed By: #### [facility] #### [facility] [address] [place] [address] Dr. Ibis Jimenez DRUG SCREEN RAPID (URINE)on 10-19-2021 AMP Negative Normal NEGATIVE [facility] Comment on above: Performed By: #### B MP #### [facility] [address] [place] [address] Dr. Ibis Jimenez BAR Positive Abnormal NEGATIVE [facility] Comment on above: Performed By: #### B MP #### [facility] [address] [place] [address] Dr. Ibis Jimenez BUP Negative Normal NEGATIVE [facility] Comment on above: Performed By: #### B MP #### [facility] [address] [place] [address] Dr. Ibis Jimenez BZO Positive Abnormal NEGATIVE [facility] Comment on above: Performed By: #### B MP #### [facility] [address] [place] [address] Dr. Ibis Jimenez SEMAJ Negative Normal NEGATIVE [facility] Comment on above: Performed By: #### B MP #### [facility] [address] [place] [address] Dr. Ibis Jimenez CUT-OFFS SEE BELOW Normal [facility] Comment on above: Result Comment: AMP (Amphetamine): 500ng/mL, BAR (Barbituates): 200 ng/mL, BZO (Benzodiazepines): 150 ng/mL, BUP (Buprenorphine): 10 ng/mL, SEMAJ (Cocaine): 150 ng/mL, mAMP (Methamphetamine): 500 ng/mL, MTD (Methadone): 200 ng/mL, OPI (Opiates): 100 ng/mL, OXY (Oxycodone): 100 ng/mL, PCP (Phencyclidine): 25 ng/mL, PPX (Propoxyphene): 300 ng/mL, THC (Cannabinoids): 50 ng/mL, TCA (Trycyclic Antidepressants): 300 ng/mL Performed By: #### B MP #### [facility] [address] [place] [address] Dr. Ibis Jimenez DRUG CUT HEADER DRUG CLASS TEST SYST EM CUT-OFF CONCENTRATIONS ARE FOLLOWS: Normal [facility] Comment on above: Performed By: #### B MP #### [facility] [address] [place] [address] Dr. Ibis Jimenez mAMP Negative Normal NEGATIVE [facility] Comment on above: Performed By: #### B MP #### [facility] [address] [place] [address] Dr. Ibis Jimenez MTD Negative Normal NEGATIVE [facility] Comment on above: Performed By: #### B MP #### [facility] [address] [place] [address] Dr. Ibis Jimenez OPI Positive Abnormal NEGATIVE [facility] Comment on above: Performed By: #### B MP #### [facility] [address] [place] [address] Dr. Ibis Jimenez OXY Positive Abnormal NEGATIVE [facility] Comment on above: Performed By: #### B MP #### [facility] [address] [place] [address] Dr. Ibis Jimenez PCP Negative Normal NEGATIVE [facility] Comment on above: Performed By: #### B MP #### [facility] [address] [place] [address] Dr. Ibis Jimenez PPX Negative Normal NEGATIVE [facility] Comment on above: Performed By: #### B MP #### [facility] [address] [place] [address] Dr. Ibis Jimenez TCA Negative Normal NEGATIVE [facility] Comment on above: Performed By: #### B MP #### [facility] [address] [place] [address] Dr. Ibis Jimenez THC Negative Normal NEGATIVE [facility] Comment on above: Performed By: #### B MP #### [facility] [address] [place] [address] Dr. Ibis Jimenez ER URINE PROFILEon 2 Bilirubin Ql (U) Negative Normal NEGATIVE [facility] Comment on above: Performed By: #### B MP #### [facility] [address] [place] [address] Dr. Ibis Jimenez Clarity (U) CLEAR Normal CLEAR [facility] Comment on above: Performed By: #### B MP #### [facility] [address] [place] [address] Dr. Ibis Jimenez Color (U) YELLOW Normal YELLOW [facility] ostal Comment on above: Performed By: #### B MP #### [facility] [address] [place] [address] Dr. Ibis Jimenez ERUAHKishan A micrscopic examina tion will be performed if indicated. Normal The [facility] l Comment on above: Performed By: #### B MP #### [facility] [address] [place] [address] Dr. Ibis Jimenez Glucose Ql (U) Negative Normal NEGATIVE [facility] Comment on above: Performed By: #### B MP #### [facility] [address] [place] [address] Dr. Ibis Jimenez Hemoglobin Ql (U) TRACE-INTACT Abnormal NEGATIVE [facility] Comment on above: Performed By: #### B MP #### [facility] [address] [place] [address] Dr. Ibis Jimenez Ketones Ql (U) Negative Normal NEGATIVE [facility] Comment on above: Performed By: #### B MP #### [facility] [address] [place] [address] Dr. Ibis Jimenez LEUKOCYTES Negative Normal NEGATIVE [facility] Comment on above: Performed By: #### B MP #### [facility] [address] [place] [address] Dr. Ibis Jimenez Nitrite Ql (U) Negative Normal NEGATIVE [facility] Comment on above: Performed By: #### B MP #### [facility] [address] [place] [address] Dr. Ibis Jimenez pH (U) 5.5 [pH] Normal 5-9 [facility] Comment on above: Performed By: #### B MP #### [facility] [address] [place] [address] Dr. Ibis Jimenez SPEC GRAVITY >=1.030 Abnormal 1.005-<=1.025 [facility] Comment on above: Performed By: #### B MP #### [facility] [address] [place] [address] Dr. Ibis Jimenez UA PROTEIN Negative Normal NEGATIVE/ TRACE [facility] Comment on above: Performed By: #### B MP #### [facility] [address] [place] [address] Dr. Ibis Jimenez UR MICRO IND INDICATED Normal [facility] Comment on above: Performed By: #### B MP #### [facility] [address] [place] [address] Dr. Ibis Jimenez Urobilinogen Qn (U) 0.2 {Dinorah'U}/dL Normal 0.2 - 1. 0 [facility] Comment on above: Performed By: #### B MP #### [facility] [address] [place] [address] Dr. Ibis Jimenez LACTATE/LACTIC ACIDon 2021 Lactate [Moles/Vol] 1.2 mmol/L Normal 0.4-1.9 [facility] Comment on above: Performed By: #### A MM #### [facility] [address] [place] [address] Dr. Ibis Jimenez Lactic Acidon 10-19-2021 Lactic Acid,Whole Bl 0.9 mmol/L Normal 0.7-2.1 [facility] Comment on above: Performed By: #### T ROPI, LACTIC, CMPX, CBC #### [id number] [place] [address] Global Compensation Director: Tavon Nicole MD Lactic Acid, Whole Blood 0.9 mmol/L 0.7 - 2.1 m mol/L [facility] MONOon 10-19-2021 Monocytes (Bld) [#/Vol] Negative Normal NEGATIVE [facility] Comment on above: Performed By: #### M DAVID #### [facility] [address] [place] [address] Dr. Ibis Jimenez MRI BRAIN W WO CONTRASTon MRI BRAIN W WO CONTRAST EXAMINATION: MRI OF THE BRAIN WITHOUT AND WITH CONTRAST 10/19/2021 3:24 pm TECHNIQUE: Multiplanar multisequence MRI of the head/brain was performed without and with the administration of intravenous contrast. COMPARISON: Head CT 12/24/2020 HISTORY: ORDERING SYSTEM PROVIDED HISTORY: seizure protocol FINDINGS: INTRACRANIAL STRUCTURES/VENTRICLES: No evidence of an acute infarct or other acute parenchymal process. No evidence of acute intracranial hemorrhage. There is no evidence of an intracranial mass or extraaxial fluid collection. No significant mass effect or midline shift. The white matter signal intensity is within normal limits for patient's age. There is no significant volume loss. The ventricles are within normal limits of size and configuration for age. The sellar/suprasellar regions appear unremarkable. The normal signal voids within the major intracranial vessels appear maintained. The hippocampal formations are grossly unremarkable. No evidence of abnormal parenchymal or leptomeningeal enhancement. ORBITS: The visualized portion of the orbits demonstrate no acute abnormality. SINUSES: The visualized paranasal sinuses and mastoid air cells are well aerated. BONES/SOFT TISSUES: The bone marrow signal intensity appears normal. The soft tissues demonstrate no acute abnormality. IMPRESSION: Unremarkable MR brain. Interpreted by: Carlos Marks DO Signed by: Carlos Marks DO 10/19/21 Final result Normal [facility] Unremarkable MR brai n. [facility] RIS CONSOLIDATE D EXAMINATION: MRI OF THE BRAIN WITHOUT AND WITH CONTRAST 10/19/2021 3:24 pm TECHNIQUE: Multiplanar multisequence MRI of the head/brain was performed without and with the administration of intravenous contrast. COMPARISON: Head CT 12/24/2020 HISTORY: ORDERING SYSTEM PROVIDED HISTORY: seizure protocol FINDINGS: INTRACRANIAL STRUCTURES/VENTRICLES: No evidence of an acute infarct or other acute parenchymal process. No evidence of acute intracranial hemorrhage. There is no evidence of an intracranial mass or extraaxial fluid collection. No significant mass effect or midline shift. The white matter signal intensity is within normal limits for patient's age. There is no significant volume loss. The ventricles are within normal limits of size and configuration for age. The sellar/suprasellar regions appear unremarkable. The normal signal voids within the major intracranial vessels appear maintained. The hippocampal formations are grossly unremarkable. No evidence of abnormal parenchymal or leptomeningeal enhancement. ORBITS: The visualized portion of the orbits demonstrate no acute abnormality. SINUSES: The visualized paranasal sinuses and mastoid air cells are well aerated. BONES/SOFT TISSUES: The bone marrow signal intensity appears normal. The soft tissues demonstrate no acute abnormality. [facility] RIS CONSOLIDATE D Carlos Marks DO - 10/19/2021 EXAMINATION: MRI OF THE BRAIN WITHOUT AND WITH CONTRAST 10/19/2021 3:24 pm TECHNIQUE: Multiplanar multisequence MRI of the head/brain was performed without and with the administration of intravenous contrast. COMPARISON: Head CT 12/24/2020 HISTORY: ORDERING SYSTEM PROVIDED HISTORY: seizure protocol FINDINGS: INTRACRANIAL STRUCTURES/VENTRICLES: No evidence of an acute infarct or other acute parenchymal process. No evidence of acute intracranial hemorrhage. There is no evidence of an intracranial mass or extraaxial fluid collection. No significant mass effect or midline shift. The white matter signal intensity is within normal limits for patient's age. There is no significant volume loss. The ventricles are within normal limits of size and configuration for age. The sellar/suprasellar regions appear unremarkable. The normal signal voids within the major intracranial vessels appear maintained. The hippocampal formations are grossly unremarkable. No evidence of abnormal parenchymal or leptomeningeal enhancement. ORBITS: The visualized portion of the orbits demonstrate no acute abnormality. SINUSES: The visualized paranasal sinuses and mastoid air cells are well aerated. BONES/SOFT TISSUES: The bone marrow signal intensity appears normal. The soft tissues demonstrate no acute abnormality. IMPRESSION: Unremarkable MR brain. [employer] Phone: Radiology Study observation (narrative) [employer] Phone: MRI BRAIN W WO CONTRASTOrder ed By: Carlos aMrks on 10-19-2021 [facility] [employer] Work Phone: PH VENOUS BLOODon 10-19-2021 PCO2 VENOUS 36.6 mmHg Critically low 40.0-52.0 [facility] Comment on above: Performed By: #### B MP #### [facility] [address] [place] [address] [address] Ibis Jimenez pH VENOUS 7.387 Normal 7.330-7.430 [facility] Comment on above: Performed By: #### B MP #### [facility] [address] [address] [address] Ibis Jimenez PROF CHEM 8 (BAS METB)on Anion gap [Moles/Vol] 11.9 mmol/L Normal [facility] Comment on above: Performed By: #### M DAVID #### [facility] [address] [address] [address] Ibis Jimenez Calcium [Mass/Vol] 9.1 mg/dL Normal 8.5-10.1 [facility] Comment on above: Performed By: #### M DAVID #### [facility] [address] [address] [address] Ibis Jimenez Chloride [Moles/Vol] 104 mmol/L Normal 98-107 [facility] Comment on above: Performed By: #### M DAVID #### [facility] [address] [address] [address] Ibis Jimenez CO2 [Moles/Vol] 26.7 mmol/L Normal 21.0-32.0 [facility] Comment on above: Performed By: #### M DAVID #### [facility] [address] [address] [address] Ibis Jimenez Creatinine [Mass/Vol] 0.78 mg/dL Normal 0.55-1.02 [facility] Comment on above: Performed By: #### M DAVID #### [facility] [address] [address] [address] Ibis Jimenez EGFR-AF ST LUCIAN >60 Normal >=60 [facility] Comment on above: Performed By: #### M DAVID #### [facility] [address] [address] [address] bIis Jimenez EGFR-NON AF [facility] LUCIAN >60 Normal >=60 [facility] Comment on above: Performed By: #### M DAVID #### [facility] [address] [address] [address] Ibis Jimenez Glucose [Mass/Vol] 96 mg/dL Normal 74-106 [facility] Comment on above: Performed By: #### M DAVID #### [facility] [address] [address] [address] Ibis Jimenez Potassium [Moles/Vol] 3.6 mmol/L Normal 3.5-5.1 [facility] Comment on above: Performed By: #### M DAVID #### [facility] [address] [address] [address] Ibis Jimenez Sodium [Moles/Vol] 139 mmol/L Normal 136-145 [facility] Comment on above: Performed By: #### M DAVID #### [facility] [address] [address] [address] Ibis Jimenez Urea nitrogen [Mass/Vol] 14.0 mg/dL Normal 7.0-18.0 [facility] Comment on above: Performed By: #### M DAVID #### [facility] [address] [address] [address] Ibis Jimenez Urea nitrogen/Creatinine [Mass ratio] 17.9 mg/mg Normal [facility] Comment on above: Performed By: #### M DAVID #### [facility] [address] [address] [address] Ibis Jimenez TSHon 10-19-2021 TSH 1.389 uIU/mL Normal 0.358-3.740 [facility] Comment on above: Performed By: #### A CETBEEYC #### [facility] [address] [address] [address] Ibis Jimenez Troponinon 10-19-2021 Troponin, High Sens <6 Normal 0-14 [facility] Comment on above: Result Comment: High Sensitivity Troponin values cannot be compared with other Troponin methodologies. Patients with high levels of Biotin oral intake (i.e >5mg/day) may have falsely decreased Troponin levels. Samples collected within 8 hours of biotin intake may require additional information for diagnosis. Performed By: #### T ROPI, LACTIC, CMPX, CBC #### [facility] [place] [address] Global Compensation Director: Tavon Nicole MD Troponin, High Sensitivity ng/L 0 - 14 ng /L [facility] Comment on above: High Sensitivity Troponin values cannot be compared with other Troponin methodologies. Patients with high levels of Biotin oral intake (i.e >5mg/day) may have falsely decreased Troponin levels. Samples collected within 8 hours of biotin intake may require additional information for diagnosis. JEREMIAH BURROWS [facility] URINE MICROSCOPIC ONLYon BACTERIA TRACE Abnormal NONE SEEN [facility] Comment on above: Performed By: #### B MP #### [facility] [address] [place] [address] Dr. Ibis Jimenez Bacteria identified Cx Nom (U) NOT INDICATED Normal [facility] Comment on above: Performed By: #### B MP #### [facility] [address] [place] [address] Dr. Ibis Jimenez CAST NONE SEEN Normal NONE SEEN [facility] Comment on above: Performed By: #### B MP #### [facility] [address] [place] [address] Dr. Ibis Jimenez Crystals LM Nom (Urine sed) NONE SEEN Normal NONE SEE N [facility] Comment on above: Performed By: #### B MP #### [facility] [address] [place] [address] Dr. Ibis Jimenez Epithelial cells LM Ql (Urine sed) RARE Normal N ONE SEEN /RARE [facility] Comment on above: Performed By: #### B MP #### [facility] [address] [place] [address] Dr. Ibis Jimenez MUCOUS LARGE Abnormal NONE SEEN [facility] Comment on above: Performed By: #### B MP #### [facility] [address] [place] [address] Dr. Ibis Jimenez RBC 2-5 Abnormal 0-2 [facility] Comment on above: Performed By: #### B MP #### [facility] [address] [place] [address] Dr. Ibis Jimenez WBC 0-2 Abnormal NONE SEEN [facility] Comment on above: Performed By: #### B MP #### [facility] [address] [place] [address] ABD/PELVIS WO CONon 10-06 CT ABD/PELVIS WO CON Indication: Pelvic pain status post hysterectomy. Comparison: 08/14/2021 exam. Procedure: Axial images were made from the diaphragms through the symphysis pubis. No oral or IV contrast was given. Dose reduction techniques were achieved by using automated exposure control and/or adjustment of mA and/or kV according to patient size and/or use of iterative reconstruction technique. Findings: Pelvis: Status post hysterectomy. A 7.1 x 4.2 x 6.6 cm fluid collection is seen anterior to the rectum (LOC: 324). Postoperative changes are seen in anterior pelvic wall. No pelvic adenopathy or masses. Unremarkable bladder. Liver/Biliary System: No liver masses. No intra or extrahepatic biliary dilatation. Status postcholecystectomy. Pancreas/Spleen: No pancreatic masses are seen. Pancreatic duct is not dilated. No evidence of pancreatitis. No splenomegaly. Kidneys/Adrenals: No renal or ureteral stones are seen. No hydronephrosis or hydroureter. No adrenal nodules. Aorta/Vessels: No evidence of aortic aneurysm. Evaluation of vessels is limited due to lack of IV contrast. Bowel/Fluid/Nodes: No bowel dilatation. No bowel wall thickening. No ascites or fluid collections in the abdomen. No adenopathy. Lung bases: Small atelectasis at right lung base. No pleural effusions. Other findings: No aggressive osseous lesions are seen. Impression: 1. A 7.1 x 4.2 x 6.6 cm fluid collection anterior to the rectum. 2. Postoperative changes in anterior pelvic wall, status post hysterectomy. 3. Small atelectasis at right lung base. Electronically authenticated by: JASS LAURENT Date: 2021-10-06 20:08 Normal [facility] ER URINE PROFILEon 2 Bilirubin Ql (U) Negative Normal NEGATIVE [facility] Comment on above: Performed By: #### M DAVID #### [facility] [address] [place], [place] [address] Dr. Ibis Jimenez Clarity (U) CLEAR Normal CLEAR [facility] Comment on above: Performed By: #### M DAVID #### [facility] [address] [place], [place] [address] Dr. Ibis Jimenez Color (U) LT. YELLOW Normal YELLOW [facility] Comment on above: Performed By: #### M DAVID #### [facility] [address] [address] [address] Ibis RODRIGUEZ A micrscopic examina tion will be performed if indicated. Normal [facility] l Comment on above: Performed By: #### M DAVID #### [facility] [address] [address] [address] Ibis Jimenez Glucose Ql (U) Negative Normal NEGATIVE [facility] Comment on above: Performed By: #### M DAVID #### [facility] [address] [address] [address] Ibis Jimenez Hemoglobin Ql (U) Negative Normal NEGATIVE The [facility] Comment on above: Performed By: #### M DAVID #### [facility] [address] [place] [address] Dr. Ibis Jimenez Ketones Ql (U) Negative Normal NEGATIVE [facility] Comment on above: Performed By: #### M DAVID #### [facility] [address] [address] [address] Ibis Jimenez LEUKOCYTES Negative Normal NEGATIVE [facility] Comment on above: Performed By: #### M DAVID #### [facility] [address] [address] [address] Ibis Jimenez Nitrite Ql (U) Negative Normal NEGATIVE [facility] Comment on above: Performed By: #### M DAVID #### [facility] [address] [address] [address] Ibis Jimenez pH (U) 8.0 [pH] Normal 5-9 [facility] Comment on above: Performed By: #### M DAVID #### [facility] [address] [address] [address] Ibis Jimenez SPEC GRAVITY 1.010 Normal 1.005-<=1.025 [facility] Comment on above: Performed By: #### M DAVID #### [facility] [address] [address] [address] Ibis Jimenez UA PROTEIN Negative Normal NEGATIVE/ TRACE [facility] Comment on above: Performed By: #### M DAVID #### [facility] [address] [address] [address] Ibis Jimenez UR MICRO IND NOT INDICATED Normal [facility] Comment on above: Performed By: #### M DAVID #### [facility] [address] [address] [address] Ibis Jimenez Urobilinogen Qn (U) 0.2 {Dinorah'U}/dL Normal 0.2 - 1. 0 [facility] Comment on above: Performed By: #### M DAVID #### [facility] [address] [address] [address] Ibis Jimenez ER URINE PROFILEon 2 Bilirubin Ql (U) Negative Normal NEGATIVE [facility] Comment on above: Performed By: #### C VDTBH #### [facility] [address] [place] [address] Dr. Ibis Jimenez Clarity (U) CLEAR Normal CLEAR [facility] Comment on above: Performed By: #### C VDTBH #### [facility] [address] [place] [address] Dr. Ibis Jimenez Color (U) YELLOW Normal YELLOW [facility] Comment on above: Performed By: #### C VDTBH #### [facility] [address] [place] [address] Dr. Ibis Jimenez ERUAHD A micrscopic examina tion will be performed if indicated. Normal [facility] l Comment on above: Performed By: #### C VDTBH #### [facility] [address] [place] [address] Dr. Ibis Jimenez Glucose Ql (U) Negative Normal NEGATIVE [facility] Comment on above: Performed By: #### C VDTBH #### [facility] [address] [place] [address] Dr. Ibis Jimenez Hemoglobin Ql (U) Negative Normal NEGATIVE [facility] Comment on above: Performed By: #### C VDTBH #### [facility] [address] [place] [address] Dr. Ibis Jimenez Ketones Ql (U) Negative Normal NEGATIVE [facility] Comment on above: Performed By: #### C VDTBH #### [facility] [address] [place] [address] Dr. Ibis Jimenez LEUKOCYTES Negative Normal NEGATIVE [facility] Comment on above: Performed By: #### C VDTBH #### [facility] [address] [place] [address] Dr. Ibis Jimenez Nitrite Ql (U) Negative Normal NEGATIVE [facility] Comment on above: Performed By: #### C VDTBH #### [facility] [address] [place] [address] Dr. Iibs Jimenez pH (U) 6.0 [pH] Normal 5-9 [facility] Comment on above: Performed By: #### C VDTBH #### [facility] [address] [place] [address] Dr. Ibis Jimenez SPEC GRAVITY 1.025 Normal 1.005-<=1.025 [facility] Comment on above: Performed By: #### C VDTBH #### [facility] [address] [place] [address] Dr. Ibis Jimenez UA PROTEIN Negative Normal NEGATIVE/ TRACE [facility] Comment on above: Performed By: #### C VDTBH #### [facility] [address] [place] [address] Dr. Ibis Jimenez UR MICRO IND NOT INDICATED Normal [facility] Comment on above: Performed By: #### C VDTBH #### [facility] [address] [place] [address] Dr. Ibis Jimenez Urobilinogen Qn (U) 0.2 {Dinorah'U}/dL Normal 0.2 - 1. 0 [facility] Comment on above: Performed By: #### C VDTBH #### [facility] [address] [place] [address] Dr. Ibis Jimenez CBC AUTO DIFFon 10-03-2021 BASO # 0.0 103/ul Normal 0.0-0.1 [facility] Comment on above: Performed By: #### B MP #### [facility] [address] [place] [address] Dr. Ibis Jimenez Basophils/100 WBC (Bld) 0.3 % Normal 0.2-2.0 [facility] Comment on above: Performed By: #### B MP #### [facility] [address] [place] [address] Dr. Ibis Jimenez EO # 0.3 103/ul Normal 0.0-0.7 [facility] Comment on above: Performed By: #### B MP #### [facility] [address] [place] [address] Dr. Ibis Jimenez Eosinophils/100 WBC (Bld) 4.1 % Normal 0.9-7.0 [facility] Comment on above: Performed By: #### B MP #### [facility] [address] [place] [address] Dr. Ibis Jimenez Erythrocyte distribution wid th (RBC) [Ratio] 13.2 % Normal 11.0-15.0 [facility] Comment on above: Performed By: #### B MP #### [facility] [address] [place] [address] Dr. Ibis Jimenez Hematocrit (Bld) [Volume fraction] 35.7 % Critically low 36.0-48.0 [facility] Comment on above: Performed By: #### B MP #### [facility] [address] [place] [address] Dr. Ibis Jimenez Hemoglobin (Bld) [Mass/Vol] 11.6 g/dL Critically low 12.0 -16.0 [facility] Comment on above: Performed By: #### B MP #### [facility] [address] [place] [address] Dr. Ibis Jimenez IG # 0.02 10e3/ul Normal 0.00-0.03 [facility] Comment on above: Performed By: #### B MP #### [facility] [address] [place] [address] Dr. Ibis Jimenez IG % 0.3 % Normal 0.0-0.5 [facility] Comment on above: Performed By: #### B MP #### [facility] [address] [place] [address] Dr. Ibis Jimenez LYMPH # 1.5 103/ul Normal 1.2-3.8 [facility] Comment on above: Performed By: #### B MP #### [facility] [address] [place] [address] Dr. Ibis Jimenez Lymphocytes/100 WBC (Bld) 24.3 % Normal 20.5-60.0 [facility] Comment on above: Performed By: #### B MP #### [facility] [address] [place] [address] Dr. Ibis Jimenez MANUAL DIFF REQ NO Normal [facility] Comment on above: Performed By: #### B MP #### [facility] [address] [place] [address] Dr. Ibis Jimenez MCH (RBC) [Entitic mass] 28.9 pg Normal 26.7-34.0 [facility] Comment on above: Performed By: #### B MP #### [facility] [address] [place] [address] Dr. Ibis Jimenez MCHC (RBC) [Mass/Vol] 32.5 g/dL Normal 29.9-35.2 [facility] Comment on above: Performed By: #### B MP #### [facility] [address] [place] [address] Dr. Ibis Jimenez MCV (RBC) [Entitic vol] 89.0 fL Normal 81.0-99.0 [facility] Comment on above: Performed By: #### B MP #### [facility] [address] [place] [address] Dr. Ibis Jimenez MONO # 0.5 103/ul Normal 0.3-0.8 [facility] Comment on above: Performed By: #### B MP #### [facility] [address] [place] [address] Dr. Ibis Jimenez Monocytes/100 WBC (Bld) 7.3 % Normal 1.7-12.0 [facility] Comment on above: Performed By: #### B MP #### [facility] [address] [address] [address] Ibis Jimenez NEUT # 4.0 103/ul Normal 1.4-6.5 [facility] Comment on above: Performed By: #### B MP #### [facility] [address] [address] [address] Ibis Jimenez Neutrophils/100 WBC (Bld) 63.7 % Normal 43.0-75.0 [facility] Comment on above: Performed By: #### B MP #### [facility] [address] [place] [address] Dr. Ibis Jimenez Platelet mean volume (Bld) [Entitic vol] 9.7 fL Normal 9.5-13.5 [facility] Comment on above: Performed By: #### B MP #### [facility] [address] [address] [address] Ibis Jimenez PLT 237 103/ul Normal 150-450 [facility] Comment on above: Performed By: #### B MP #### [facility] [address] [place] [address] Dr. Ibis Jimenez RBC 4.01 106/ul Critically low 4.20-5.40 [facility] Comment on above: Performed By: #### B MP #### [facility] [address] [address] [address] Ibis Jimenez WBC 6.3 103/ul Normal 4.0-11.0 [facility] Comment on above: Performed By: #### B MP #### [facility] [address] [address] [address] Ibis Jimenez LACTATE/LACTIC ACIDon 2021 Lactate [Moles/Vol] 1.2 mmol/L Normal 0.4-1.9 [facility] Comment on above: Performed By: #### A MM #### [facility] [address] [place] [address] Dr. Ibis Jimenez BUNon 10-02-2021 Urea nitrogen [Mass/Vol] 7.0 mg/dL Normal 7.0-18.0 [facility] Comment on above: Performed By: #### C VDTB #### [facility] [address] [place] [address] Dr. Ibis Jimenez CBC AUTO DIFFon 10-02-2021 BASO # 0.0 103/ul Normal 0.0-0.1 [facility] Comment on above: Performed By: #### A MM #### [facility] [address] [place] [address] Dr. Ibis Jimenez Basophils/100 WBC (Bld) 0.2 % Normal 0.2-2.0 [facility] Comment on above: Performed By: #### A MM #### [facility] [address] [place] [address] Dr. Ibis Jimenez EO # 0.0 103/ul Normal 0.0-0.7 [facility] Comment on above: Performed By: #### A MM #### [facility] [address] [place] [address] Dr. Ibis Jimenez Eosinophils/100 WBC (Bld) 0.3 % Critically low 0.9-7. 0 [facility] Comment on above: Performed By: #### A MM #### [facility] [address] [place] [address] Dr. Ibis Jimenez Erythrocyte distribution wid th (RBC) [Ratio] 12.7 % Normal 11.0-15.0 [facility] Comment on above: Performed By: #### A MM #### [facility] [address] [place] [address] Dr. Ibis Jimenez Hematocrit (Bld) [Volume fraction] 43.4 % Normal 3 6.0-48.0 [facility] Comment on above: Performed By: #### A MM #### [facility] [address] [place] [address] Dr. Ibis Jimenez Hemoglobin (Bld) [Mass/Vol] 14.6 g/dL Normal 12.0-16. 0 [facility] Comment on above: Performed By: #### A MM #### [facility] [address] [address] [address] Ibis Jimenez IG # 0.03 10e3/ul Normal 0.00-0.03 [facility] Comment on above: Performed By: #### A MM #### [facility] [address] [place] [address] Dr. Ibis Jimenez IG % 0.3 % Normal 0.0-0.5 [facility] Comment on above: Performed By: #### A MM #### [facility] [address] [place] [address] Dr. Ibis Jimenez LYMPH # 1.2 103/ul Normal 1.2-3.8 [facility] Comment on above: Performed By: #### A MM #### [facility] [address] [place] [address] Dr. Ibis Jimenez Lymphocytes/100 WBC (Bld) 11.6 % Critically low 20.5-6 0.0 [facility] Comment on above: Performed By: #### A MM #### [facility] [address] [place] [address] Dr. Ibis Jimenez MANUAL DIFF REQ NO Normal [facility] Comment on above: Performed By: #### A MM #### [facility] [address] [place] [address] Dr. Ibis Jimenez MCH (RBC) [Entitic mass] 28.5 pg Normal 26.7-34.0 [facility] Comment on above: Performed By: #### A MM #### [facility] [address] [place] [address] Dr. Ibis Jimenez MCHC (RBC) [Mass/Vol] 33.6 g/dL Normal 29.9-35.2 [facility] Comment on above: Performed By: #### A MM #### [facility] [address] [place] [address] Dr. Ibis Jimenez MCV (RBC) [Entitic vol] 84.6 fL Normal 81.0-99.0 [facility] Comment on above: Performed By: #### A MM #### [facility] [address] [place] [address] Dr. Ibis Jimenez MONO # 0.6 103/ul Normal 0.3-0.8 [facility] Comment on above: Performed By: #### A MM #### [facility] [address] [place] [address] Dr. Ibis Jimenez Monocytes/100 WBC (Bld) 5.9 % Normal 1.7-12.0 [facility] Comment on above: Performed By: #### A MM #### [facility] [address] [place] [address] Dr. Ibis Jimenez NEUT # 8.2 103/ul Critically high 1.4-6.5 [facility] Comment on above: Performed By: #### A MM #### [facility] [address] [place] [address] Dr. Ibis Jimenez Neutrophils/100 WBC (Bld) 81.7 % Critically high 43.0- 75.0 [facility] Comment on above: Performed By: #### A MM #### [facility] [address] [place] [address] Dr. Ibis Jimenez Platelet mean volume (Bld) [Entitic vol] 9.8 fL Normal 9.5-13.5 [facility] Comment on above: Performed By: #### A MM #### [facility] [address] [place] [address] Dr. Ibis Jimenez PLT 264 103/ul Normal 150-450 [facility] Comment on above: Performed By: #### A MM #### [facility] [address] [place] [address] Dr. Ibis Jimenez RBC 5.13 106/ul Normal 4.20-5.40 [facility] Comment on above: Performed By: #### A MM #### [facility] [address] [place] [address] Dr. Ibis Jimenez WBC 10.1 103/ul Normal 4.0-11.0 [facility] Comment on above: Performed By: #### A MM #### [facility] [address] [place] [address] Dr. Ibis Jimenez CREATININEon 10-02-2021 Creatinine [Mass/Vol] 0.69 mg/dL Normal 0.55-1.02 [facility] Comment on above: Performed By: #### C VDTBH #### [facility] [address] [place] [address] Dr. Ibis Jimenez EGFR-AF [facility] >60 Normal >=60 [facility] Comment on above: Performed By: #### C VDTBH #### [facility] [address] [place] [address] Dr. Ibis Jimenez EGFR-NON AF [facility] >60 Normal >=60 [facility] Comment on above: Performed By: #### C VDTBH #### [facility] [address] [place] [address] Dr. Ibis Jimenez CBC AUTO DIFFon 10-01-2021 BASO # 0.0 103/ul Normal 0.0-0.1 [facility] Comment on above: Performed By: #### A MM #### [facility] [address] [place] [address] Dr. Ibis Jimenez Basophils/100 WBC (Bld) 0.3 % Normal 0.2-2.0 [facility] Comment on above: Performed By: #### A MM #### [facility] [address] [place] [address] Dr. Ibis Jimenez EO # 0.1 103/ul Normal 0.0-0.7 [facility] Comment on above: Performed By: #### A MM #### [facility] [address] [place] [address] Dr. Ibis Jimenez Eosinophils/100 WBC (Bld) 1.9 % Normal 0.9-7.0 [facility] Comment on above: Performed By: #### A MM #### [facility] [address] [place] [address] Dr. Ibis Jimenez Erythrocyte distribution wid th (RBC) [Ratio] 12.7 % Normal 11.0-15.0 [facility] Comment on above: Performed By: #### A MM #### [facility] [address] [address] [address] Ibis Jimenez Hematocrit (Bld) [Volume fraction] 38.1 % Normal 3 6.0-48.0 [facility] Comment on above: Performed By: #### A MM #### [facility] [address] [place] [address] Dr. Ibis Jimenez Hemoglobin (Bld) [Mass/Vol] 12.7 g/dL Normal 12.0-16. 0 [facility] Comment on above: Performed By: #### A MM #### [facility] [address] [address] [address] Ibis Jimenez IG # 0.02 10e3/ul Normal 0.00-0.03 [facility] Comment on above: Performed By: #### A MM #### [facility] [address] [place] [address] Dr. Ibis Jimenez IG % 0.3 % Normal 0.0-0.5 [facility] Comment on above: Performed By: #### A MM #### [facility] [address] [place] [address] Dr. Ibis Jimenez LYMPH # 1.9 103/ul Normal 1.2-3.8 [facility] Comment on above: Performed By: #### A MM #### [facility] [address] [place] [address] Dr. Ibis Jimenez Lymphocytes/100 WBC (Bld) 30.5 % Normal 20.5-60.0 [facility] Comment on above: Performed By: #### A MM #### [facility] [address] [place] [address] Dr. Ibis Jimenez MANUAL DIFF REQ NO Normal [facility] Comment on above: Performed By: #### A MM #### [facility] [address] [place] [address] Dr. Ibis Jimenez MCH (RBC) [Entitic mass] 28.3 pg Normal 26.7-34.0 [facility] Comment on above: Performed By: #### A MM #### [facility] [address] [place] [address] Dr. Ibis Jimenez MCHC (RBC) [Mass/Vol] 33.3 g/dL Normal 29.9-35.2 [facility] Comment on above: Performed By: #### A MM #### [facility] [address] [place] [address] Dr. Ibis Jimenez MCV (RBC) [Entitic vol] 85.0 fL Normal 81.0-99.0 [facility] Comment on above: Performed By: #### A MM #### [facility] [address] [place] [address] Dr. Ibis Jimenez MONO # 0.3 103/ul Normal 0.3-0.8 [facility] Comment on above: Performed By: #### A MM #### [facility] [address] [place] [address] Dr. Ibis Jimenez Monocytes/100 WBC (Bld) 5.2 % Normal 1.7-12.0 [facility] Comment on above: Performed By: #### A MM #### [facility] [address] [place] [address] Dr. Ibis Jimenez NEUT # 3.9 103/ul Normal 1.4-6.5 [facility] Comment on above: Performed By: #### A MM #### [facility] [address] [place] [address] Dr. Ibis Jimenez Neutrophils/100 WBC (Bld) 61.8 % Normal 43.0-75.0 [facility] Comment on above: Performed By: #### A MM #### [facility] [address] [place] [address] Dr. Ibis Jimenez Platelet mean volume (Bld) [Entitic vol] 9.7 fL Normal 9.5-13.5 [facility] Comment on above: Performed By: #### A MM #### [facility] [address] [place] [address] Dr. Ibis Jimenez PLT 255 103/ul Normal 150-450 [facility] Comment on above: Performed By: #### A MM #### [facility] [address] [address] [address] Ibis Jimenez RBC 4.48 106/ul Normal 4.20-5.40 [facility] Comment on above: Performed By: #### A MM #### [facility] [address] [address] [address] Ibis Jimenez WBC 6.3 103/ul Normal 4.0-11.0 [facility] Comment on above: Performed By: #### A MM #### [facility] [address] [address] [address] Ibis Jimenez PREG HCG QUALon 10-01-2021 , QUAL Negative Normal NEGATIVE [facility] Comment on above: Performed By: #### M DAVID #### [facility] [address] [place] [address] Dr. Ibis Jimenez Covid-19 PCR [facility] 09-20 SARS-CoV-2 (COVID-19) RNA SAURABH+probe Ql (Unsp spec) Not detected Normal NOT DETECTED [facility] Comment on above: Result Comment: This test is not yet approved or cleared by the [place] FDA. When there are no FDA-approved or cleared tests available, and other criteria are met, FDA can make tests available under an emergency access mechanism called an Emergency Use Authorization (EUA). The EUA for this test is supported by the [place] of Health and Human Service's (HHS's) declaration that circumstances exist to justify the emergency use of in vitro diagnostics for the detection and/or diagnosis of the virus that causes COVID-19. This EUA will remain in effect (meaning this test can be used) for the duration of the COVID-19 declaration justifying emergency of IVDs, unless it is terminated or revoked by FDA (after which the test may no longer be used). When diagnostic testing is negative, the possibility of a false negative should be considered in the context of a patient's recent exposures and the presence of clinical signs and symptoms consistent with SARS-CoV-2. Performed By: #### B MP #### [facility] [address] [address] [address] Ibis Jimenez TYPE AND SCREENon 09-29-2021 TYPE AND SCREEN Negative Normal [facility] Comment on above: Performed By: #### B MP #### [facility] [address] [place] [address] [address] [address] Ibis Jimenez Covid-19 PCR (CVDTB)on SARS-CoV-2 (COVID-19) RNA SAURABH+probe Ql (Unsp spec) Not detected Normal NOT DETECTED [facility] Comment on above: Result Comment: This test is not yet approved or cleared by the [place] FDA. When there are no FDA-approved or cleared tests available, and other criteria are met, FDA can make tests available under an emergency access mechanism called an Emergency Use Authorization (EUA). The EUA for this test is supported by the [place] of Health and Human Service's (HHS's) declaration that circumstances exist to justify the emergency use of in vitro diagnostics for the detection and/or diagnosis of the virus that causes COVID-19. This EUA will remain in effect (meaning this test can be used) for the duration of the COVID-19 declaration justifying emergency of IVDs, unless it is terminated or revoked by FDA (after which the test may no longer be used). When diagnostic testing is negative, the possibility of a false negative should be considered in the context of a patient's recent exposures and the presence of clinical signs and symptoms consistent with SARS-CoV-2. Performed By: #### C VDTB #### [facility] [address] [place] [address] Dr. Ibis Jimenez TYPE AND SCREENon 09-21-2021 TYPE AND SCREEN Negative Normal [facility] Comment on above: Performed By: #### B MP #### [facility] [address] [place] [address] [address] [address] Ibis Jimenez CHLAMYDIA/GONOCOCCUS SAURABH (SW AB/URINE/PAPon 08-17-2021 Chlamydia trachomatis, SAURABH Negative Normal Negative [facility] Comment on above: Performed By: #### A CET, SALYC #### [facility] [address] [place] [address] [address] [address] Ibis Jimenez Neisseria gonorrhoeae, SAURABH Negative Normal Negative [facility] Comment on above: Performed By: #### A CET, SALYC #### [facility] [address] [place] [address] Dr. Ibis Jimenez CBC AUTO DIFFon 08-14-2021 BASO # 0.0 103/ul Normal 0.0-0.1 [facility] Comment on above: Performed By: #### C VDTBH #### [facility] [address] [place] [address] Dr. Ibis Jimenez Basophils/100 WBC (Bld) 0.3 % Normal 0.2-2.0 [facility] Comment on above: Performed By: #### C VDTBH #### [facility] [address] [place] [address] Dr. Ibis Jimenez EO # 0.2 103/ul Normal 0.0-0.7 [facility] Comment on above: Performed By: #### C VDTBH #### [facility] [address] [place] [address] Dr. Ibis Jimenez Eosinophils/100 WBC (Bld) 2.5 % Normal 0.9-7.0 [facility] Comment on above: Performed By: #### C VDTBH #### [facility] [address] [place] [address] Dr. Ibis Jimenez Erythrocyte distribution wid th (RBC) [Ratio] 13.0 % Normal 11.0-15.0 [facility] Comment on above: Performed By: #### C VDTBH #### [facility] [address] [place] [address] Dr. Ibis Jimenez Hematocrit (Bld) [Volume fraction] 38.1 % Normal 3 6.0-48.0 [facility] Comment on above: Performed By: #### C VDTBH #### [facility] [address] [place] [address] Dr. Ibis Jimenez Hemoglobin (Bld) [Mass/Vol] 12.8 g/dL Normal 12.0-16. 0 [facility] Comment on above: Performed By: #### C VDTBH #### [facility] [address] [place] [address] Dr. Ibis Jimenez IG # 0.02 10e3/ul Normal 0.00-0.03 [facility] Comment on above: Performed By: #### C VDTBH #### [facility] [address] [place] [address] Dr. Ibis Jimenez IG % 0.3 % Normal 0.0-0.5 [facility] Comment on above: Performed By: #### C VDTBH #### [facility] [address] [place] [address] Dr. Ibis Jimenez LYMPH # 1.5 103/ul Normal 1.2-3.8 [facility] Comment on above: Performed By: #### C VDTBH #### [facility] [address] [place] [address] Dr. Ibis Jimenez Lymphocytes/100 WBC (Bld) 22.5 % Normal 20.5-60.0 [facility] Comment on above: Performed By: #### C VDTBH #### [facility] [address] [place] [address] Dr. Ibis Jimenez MANUAL DIFF REQ NO Normal [facility] Comment on above: Performed By: #### C VDTBH #### [facility] [address] [place] [address] Dr. Ibis Jimenez MCH (RBC) [Entitic mass] 28.6 pg Normal 26.7-34.0 [facility] Comment on above: Performed By: #### C VDTBH #### [facility] [address] [place] [address] Dr. Ibis Jimenez MCHC (RBC) [Mass/Vol] 33.6 g/dL Normal 29.9-35.2 [facility] Comment on above: Performed By: #### C VDTBH #### [facility] [address] [place] [address] Dr. Ibis Jimenez MCV (RBC) [Entitic vol] 85.0 fL Normal 81.0-99.0 [facility] Comment on above: Performed By: #### C VDTBH #### [facility] [address] [place] [address] Dr. Ibis Jimenez MONO # 0.4 103/ul Normal 0.3-0.8 [facility] Comment on above: Performed By: #### C VDTBH #### [facility] [address] [place] [address] Dr. Ibis Jimenez Monocytes/100 WBC (Bld) 6.3 % Normal 1.7-12.0 [facility] Comment on above: Performed By: #### C VDTBH #### [facility] [address] [place] [address] Dr. Ibis Jimenez NEUT # 4.6 103/ul Normal 1.4-6.5 [facility] Comment on above: Performed By: #### C VDTBH #### [facility] [address] [place] [address] Dr. Ibis Jimenez Neutrophils/100 WBC (Bld) 68.1 % Normal 43.0-75.0 [facility] Comment on above: Performed By: #### C VDTBH #### [facility] [address] [place] [address] Dr. Ibis Jimenez Platelet mean volume (Bld) [Entitic vol] 9.8 fL Normal 9.5-13.5 [facility] Comment on above: Performed By: #### C VDTBH #### [facility] [address] [place] [address] Dr. Ibis Jimenez PLT 243 103/ul Normal 150-450 [facility] Comment on above: Performed By: #### C VDTBH #### [facility] [address] [place] [address] Dr. Ibis Jimenez RBC 4.48 106/ul Normal 4.20-5.40 [facility] Comment on above: Performed By: #### C VDTBH #### [facility] [address] [place] [address] Dr. Ibis Jimenez WBC 6.7 103/ul Normal 4.0-11.0 [facility] Comment on above: Performed By: #### C VDTBH #### [facility] [address] [address] [address] ABD/PELVIS WO CONon 08-14 CT ABD/PELVIS WO CON TECHNIQUE: CT abdom en and pelvis. Helically acquired axial images of the abdomen and pelvis from the diaphragm to the iliac crest and the iliac crest to the symphysis pubis. Sagittal and coronal multiplanar reconstructions. . HISTORY: Nausea and vomiting COMPARISON: CT abdomen/pelvis dated 02/21/2020 FINDINGS: The lung bases are clear. The heart size is normal. Patient is post cholecystectomy. Surgical clips are seen in the gallbladder fossa. Mild diffuse low-attenuation of the liver is seen, which is a nonspecific finding, but which can be seen with mild diffuse fatty infiltration. The spleen, pancreas and bilateral adrenal glands appear unremarkable on this noncontrast examination. Bilateral kidneys have an unremarkable noncontrast appearance. There is no evidence for nephrolithiasis or hydronephrosis bilaterally. No ureteral calculus is seen bilaterally. The urinary bladder appears unremarkable. The stomach and duodenum appear unremarkable. Nonobstructive bowel pattern is seen. The appendix is not identified, consistent with reported history of prior appendectomy. No abnormal pericecal inflammatory changes are seen. No significant bowel wall thickening is seen. No significant free fluid or abnormal fluid collection is seen in the abdomen and pelvis. The vascular structures and should normal caliber. The abdominal wall and visualized soft tissues appear unremarkable. No acute osseous abnormality is seen. IMPRESSION: No evidence for acute abnormality on this noncontrast examination. Likely mild diffuse fatty infiltration of liver. Prior cholecystectomy and appendectomy. Electronically authenticated by: NELI COTTO Date: 2021-08-14 18:00 Normal [facility] ER URINE PROFILEon 2 Bilirubin Ql (U) SMALL Abnormal NEGATIVE [facility] Comment on above: Performed By: #### B MP #### [facility] [address] [place] [address] Dr. Ibis Jimenez Clarity (U) CLEAR Normal CLEAR [facility] Comment on above: Performed By: #### B MP #### [facility] [address] [place] [address] Dr. Ibis Jimenez Color (U) YELLOW Normal YELLOW [facility] Comment on above: Performed By: #### B MP #### [facility] [address] [address] [address] Ibis RODRIGUEZ A micrscopic examina tion will be performed if indicated. Normal [facility] Comment on above: Performed By: #### B MP #### [facility] [address] [address] [address] Ibis Jimenez Glucose Ql (U) Negative Normal NEGATIVE [facility] Comment on above: Performed By: #### B MP #### [facility] [address] [address] [address] Ibis Jimenez Hemoglobin Ql (U) SMALL Abnormal NEGATIVE [facility] Comment on above: Performed By: #### B MP #### [facility] [address] [place] [address] Dr. Ibis Jimenez Ketones Ql (U) TRACE Abnormal NEGATIVE [facility] Comment on above: Performed By: #### B MP #### [facility] [address] [place] [address] Dr. Ibis Jimenez LEUKOCYTES Negative Normal NEGATIVE [facility] Comment on above: Performed By: #### B MP #### [facility] [address] [place] [address] Dr. Ibis Jimenez Nitrite Ql (U) Negative Normal NEGATIVE [facility] Comment on above: Performed By: #### B MP #### [facility] [address] [place] [address] Dr. Ibis Jimenez pH (U) 5.5 [pH] Normal 5-9 [facility] Comment on above: Performed By: #### B MP #### [facility] [address] [place] [address] Dr. Ibis Jimenez SPEC GRAVITY >=1.030 Abnormal 1.005-<=1.025 [facility] Comment on above: Performed By: #### B MP #### [facility] [address] [place] [address] Dr. Ibis Jimenez UA PROTEIN TRACE Normal NEGATIVE/ TRACE [facility] Comment on above: Performed By: #### B MP #### [facility] [address] [address] [address] Ibis Jimenez UR MICRO IND INDICATED Normal [facility] Comment on above: Performed By: #### B MP #### [facility] [address] [address] [address] Ibis Jimenez Urobilinogen Qn (U) 1.0 {Dinorah'U}/dL Normal 0.2 - 1. 0 [facility] Comment on above: Performed By: #### B MP #### [facility] [address] [place] [address] Dr. Ibis Jimenez URon 08-14-2021 , QUAL Negative Normal NEGATIVE [facility] Comment on above: Performed By: #### B MP #### [facility] [address] [place] [address] Dr. Ibis Jimenez PROF CHEM 8 (BAS METB)on Anion gap [Moles/Vol] 15.3 mmol/L Normal [facility] Comment on above: Performed By: #### B MP #### [facility] [address] [place] [address] Dr. Ibis Jimenez Calcium [Mass/Vol] 8.4 mg/dL Critically low 8.5-10.1 [facility] Comment on above: Performed By: #### B MP #### [facility] [address] [place] [address] Dr. Ibis Jimenez Chloride [Moles/Vol] 106 mmol/L Normal 98-107 [facility] Comment on above: Performed By: #### B MP #### [facility] [address] [place] [address] Dr. Ibis Jimenez CO2 [Moles/Vol] 22.3 mmol/L Normal 21.0-32.0 [facility] Comment on above: Performed By: #### B MP #### [facility] [address] [place] [address] Dr. Ibis Jimenez Creatinine [Mass/Vol] 0.75 mg/dL Normal 0.55-1.02 [facility] Comment on above: Performed By: #### B MP #### [facility] [address] [address] [address] Ibis Jimenez EGFR-AF [facility] LUCIAN >60 Normal >=60 [facility] Comment on above: Performed By: #### B MP #### [facility] [address] [place] [address] Dr. Ibis Jimenez EGFR-NON AF [facility] LUCIAN >60 Normal >=60 [facility] Comment on above: Performed By: #### B MP #### [facility] [address] [address] [address] Ibis Jimenez Glucose [Mass/Vol] 107 mg/dL Critically high 74-106 [facility] Comment on above: Performed By: #### B MP #### [facility] [address] [place] [address] Dr. Ibis Jimenez Potassium [Moles/Vol] 3.6 mmol/L Normal 3.5-5.1 [facility] Comment on above: Performed By: #### B MP #### [facility] [address] [place] [address] Dr. Ibis Jimenez Sodium [Moles/Vol] 140 mmol/L Normal 136-145 [facility] Comment on above: Performed By: #### B MP #### [facility] [address] [place] [address] Dr. Ibis Jimenez Urea nitrogen [Mass/Vol] 13.0 mg/dL Normal 7.0-18.0 [facility] Comment on above: Performed By: #### B MP #### [facility] [address] [place] [address] Dr. Ibis Jimenez Urea nitrogen/Creatinine [Mass ratio] 17.3 mg/mg Normal [facility] Comment on above: Performed By: #### B MP #### [facility] [address] [place] [address] Dr. Ibis Jimenez URINE MICROSCOPIC ONLYon BACTERIA TRACE Abnormal NONE SEEN [facility] Comment on above: Performed By: #### B MP #### [facility] [address] [place] [address] Dr. Ibis Jimenez Bacteria identified Cx Nom (U) NOT INDICATED Normal [facility] Comment on above: Performed By: #### B MP #### [facility] [address] [place] [address] Dr. Ibis Jimenez CAST NONE SEEN Normal NONE SEEN [facility] Comment on above: Performed By: #### B MP #### [facility] [address] [place] [address] Dr. Ibis Jimenez Crystals LM Nom (Urine sed) NONE SEEN Normal NONE SEE N [facility] Comment on above: Performed By: #### B MP #### [facility] [address] [place] [address] Dr. Ibis Jimenez Epithelial cells LM Ql (Urin e sed) MANY Abnormal NONE SEEN /RARE [facility] Comment on above: Performed By: #### B MP #### [facility] [address] [place] [address] Dr. Ibis Jimenez MUCOUS SMALL Abnormal NONE SEEN [facility] Comment on above: Performed By: #### B MP #### [facility] [address] [place] [address] Dr. Ibis Jimenez RBC 2-5 Abnormal 0-2 [facility] Comment on above: Performed By: #### B MP #### [facility] [address] [place] [address] Dr. Ibis Jimenez WBC 2-5 Abnormal NONE SEEN [facility] Comment on above: Performed By: #### B MP #### [facility] [address] [place] [address] Dr. Ibis Jimenez CBC Auto DifferentialOrdered By: Vielka Ching on 12-24-2020 [employer] # 0.44 [facility] Work Phone: Absolute Immature Granulocyte 0.05 [facility] Work Phone: Absolute Lymph # 2.48 [facility] Work Phone: Absolute Murray # 0.55 [facility] Work Phone: Basophils (Bld) [#/Vol] 10*3/uL [employer] Phone: Basophils/100 WBC (Bld) 0 % 0 - 2 % [employer] Phone: Differential Type NOT REPORTED [employer] Phone: Eosinophils/100 WBC (Bld) 5 % High 1 - 4 % [employer] Phone: Hematocrit (Bld) [Volume fraction] 37.4 % 36.3 - 47.1 % [employer] Phone: Hemoglobin.gastrointestina l spec 1 Ql (Stl) 12.3 g/dL 11.9 - 15.1 g/dL [employer] Phone: Immature granulocytes/100 WBC (Bld) 1 % High 0 [facility] [facility] Phone: Interpretation and review of laboratory results Abnormal [employer] Work Phone: Lymphocytes/100 WBC (Bld) 30 % 24 - 43 % [employer] [facility] Phone: MCH (RBC) [Entitic mass] 28.5 pg 25.2 - 33.5 pg [employer] Phone: MCHC (RBC) [Mass/Vol] 32.9 g/dL 28.4 - 34.8 g/dL [employer] Phone: MCV (RBC) [Entitic vol] 86.8 fL 82.6 - 102.9 fL [employer] [facility] Phone: Monocytes/100 WBC (Bld) 7 % 3 - 12 % [employer] Phone: NRBC Automated 0.0 0.0 per 100 WBC [employer] [facility] Phone: Platelet distribution width (Bld) [Ratio] 12.7 % 11.8 - 14.4 % [employer] [facility] Phone: Platelet Estimate NOT REPORTED [employer] Phone: Platelet mean volume (Bld) [Entitic vol] 9.4 fL 8.1 - 13.5 fL [employer] Phone: Platelets (Bld) [#/Vol] 252 10*3/uL [employer] Phone: RBC (Bld) [#/Vol] 4.31 10*6/uL 3.95 - 5.1 1 m/uL [employer] Phone: RBC (Bld) [#/Vol] NOT REPORTED [employer] [facility] Phone: Segmented neutrophils/100 WBC (Bld) 57 % 36 - 65 % [employer] [facility] Phone: Segs Absolute 4.78 [employer] [facility] Work Phone: WBC (Bld) [#/Vol] 8.3 10*3/uL [employer] [facility] Phone: WBC (Bld) [#/Vol] NOT REPORTED [employer] Phone: [employer] Phone: CBC with Diffon 12-24-2020 Abs. Basophil <0.03 Normal 0.00-0.[address] [facility] Comment on above: Performed By: #### C MPX, CDP #### [address] [place] [address] Global Compensation Director: Souleymane Pineda MD Abs.Imm.Granulocyte 0.05 k/uL Normal 0.00-0.30 [facility] Comment on above: Performed By: #### C MPX, CDP #### [facility] [address] [place] [address] Global Compensation Director: Souleymane Pineda MD Abs.Neutrophil (Seg) 4.78 k/uL Normal 1.50-8.10 [facility] Comment on above: Performed By: #### C MPX, CDP #### [address] [place], [place] [id number] Global Compensation Director: Souleymane Pineda MD Basophils/100 WBC (Bld) 0 % Normal 0-2 M [facility] Comment on above: Performed By: #### C MPX, CDP #### [facility] [address] [place], [place] [id number] Global Compensation Director: Souleymane Pineda MD Eosinophils (Bld) [#/Vol] 0.44 10*3/uL Normal 0.00-0.4 4 [facility] Comment on above: Performed By: #### C MPX, CDP #### [address] [place], [id number] Global Compensation Director: Souleymane Pineda MD Eosinophils/100 WBC (Bld) 5 % High 1-4 [facility] Comment on above: Performed By: #### C MPX, CDP #### [address] [place], [id number] Global Compensation Director: Souleymane Pineda MD Erythrocyte distribution wid th (RBC) [Ratio] 12.7 % Normal 11.8-14.4 [facility] Comment on above: Performed By: #### C MPX, CDP #### [address] [place], [id number] Global Compensation Director: Souleymane Pineda MD Hematocrit (Bld) [Volume fraction] 37.4 % Normal 3 6.3-47.1 [facility] Comment on above: Performed By: #### C MPX, CDP #### [address] [place], [place] [id number] Global Compensation Director: Souleymane Pineda MD Hemoglobin (Bld) [Mass/Vol] 12.3 g/dL Normal 11.9-15. 1 [facility] Comment on above: Performed By: #### C MPX, CDP #### [address] [place] [address] Global Compensation Director: Souleymane Pineda MD Immature granulocytes/100 WBC (Bld) 1 % High 0 [facility] Comment on above: Performed By: #### C MPX, CDP #### [facility] [address] [place] [address] Global Compensation Director: Souleymane Pineda MD Lymphocytes (Bld) [#/Vol] 2.48 10*3/uL Normal 1.10-3.7 0 [facility] Comment on above: Performed By: #### C MPX, CDP #### [facility] [address] [place], [place] [id number] Global Compensation Director: Souleymane Pineda MD Lymphocytes/100 WBC (Bld) 30 % Normal 24-43 [facility] Comment on above: Performed By: #### C MPX, CDP #### [address] [place], [place] [id number] Global Compensation Director: Souleymane Pineda MD MCH (RBC) [Entitic mass] 28.5 pg Normal 25.2-33.5 [facility] Comment on above: Performed By: #### C MPX, CDP #### [address] [place], [place] 1918383 Global Compensation Director: Souleymane Pineda MD MCHC (RBC) [Mass/Vol] 32.9 g/dL Normal 28.4-34.8 [facility] Comment on above: Performed By: #### C MPX, CDP #### [facility] [address] [place] [address] Dr[address] [place], [place] [id number] Global Compensation Director: Souleymane Pineda MD MCV (RBC) [Entitic vol] 86.8 fL Normal 82.6-102.9 M [facility] Comment on above: Performed By: #### C MPX, CDP #### [address] [place] [address] Global Compensation Director: Souleymane Pineda MD Monocytes (Bld) [#/Vol] 0.55 10*3/uL Normal 0.10-1.20 [facility] Comment on above: Performed By: #### C MPX, CDP #### [facility] [address] [place] [address] Global Compensation Director: Souleymane Pineda MD Monocytes/100 WBC (Bld) 7 % Normal 3-12 M [facility] Comment on above: Performed By: #### C MPX, CDP #### [facility] [address] [place], [place] [id number] Global Compensation Director: Souleymane Pineda MD Neutrophil (Seg) 57 % Normal 36-65 [facility] Comment on above: Performed By: #### C MPX, CDP #### [facility] [address] [place] [address] Global Compensation Director: Souleymane Pineda MD NRBC Automated 0.0 per 100 WBC Normal 0.0 [facility] Comment on above: Performed By: #### C MPX, CDP #### [facility] [address] [place], [place] [id number] Global Compensation Director: Souleymane Pineda MD Platelet mean volume (Bld) [Entitic vol] 9.4 fL Normal 8.1-13.5 [facility] Comment on above: Performed By: #### C MPX, CDP #### [facility] [address] [address] Dr. [place], [place] [id number] Global Compensation Director: Souleymane Pineda MD Platelets (Bld) [#/Vol] 252 10*3/uL Normal 138-453 [facility] Comment on above: Performed By: #### C MPX, CDP #### [facility] [address] [place] [address] Global Compensation Director: Souleymane Pineda MD RBC (Bld) [#/Vol] 4.31 10*6/uL Normal 3.95-5.11 [facility] Comment on above: Performed By: #### C MPX, CDP #### [facility] [address] [place] [address] Global Compensation Director: Souleymane Pineda MD WBC (Bld) [#/Vol] 8.3 10*3/uL Normal 3.5-11.3 [facility] Comment on above: Performed By: #### C MPX, CDP #### [facility] [address] [place] [address] [place] [address] Global Compensation Director: Souleymane Pineda MD Auto Diff Performed NOT REPORTED Normal [facility] Comment on above: Performed By: #### C MPX, CDP #### [address] [place], [place] [id number] Global Compensation Director: Souleymane Pineda MD Platelet Comment NOT REPORTED Normal [facility] Comment on above: Performed By: #### C MPX, CDP #### [address] [place] [address] Global Compensation Director: Souleymane Pineda MD RBC morphology finding Nom (Bld) NOT REPORTED Normal [facility] Comment on above: Performed By: #### C MPX, CDP #### [address] [place], [place] [id number] Global Compensation Director: Souleymane Pineda MD WBC Morphology NOT REPORTED Normal [facility] Comment on above: Performed By: #### C MPX, CDP #### [address] [place], [place] [id number] Global Compensation Director: Souleymane Pineda MD CT HEAD WO CONTRASTon 2020 CT HEAD WO CONTRAST EXAMINATION: CT OF THE HEAD WITHOUT CONTRAST 12/24/2020 8:27 pm TECHNIQUE: CT of the head was performed without the administration of intravenous contrast. Dose modulation, iterative reconstruction, and/or weight based adjustment of the mA/kV was utilized to reduce the radiation dose to as low as reasonably achievable. COMPARISON: None. HISTORY: ORDERING SYSTEM PROVIDED HISTORY: headache TECHNOLOGIST PROVIDED HISTORY: headache Decision Support Exception - unselect if not a suspected or confirmed emergency medical condition->Emergency Medical Condition (MA) Is the patient ?->No FINDINGS: BRAIN/VENTRICLES: There is no acute intracranial hemorrhage, mass effect or midline shift. No abnormal extra-axial fluid collection. The antonio-white differentiation is maintained without evidence of an acute infarct. There is no evidence of hydrocephalus. ORBITS: The visualized portion of the orbits demonstrate no acute abnormality. SINUSES: Fehy-ak-aekstmta paranasal sinus mucosal thickening. SOFT TISSUES/SKULL: No acute abnormality of the visualized skull or soft tissues. IMPRESSION: No acute intracranial abnormality. Interpreted by: Edwin Bentley MD Signed by: Edwin Bentley MD 12/24/20 Final result Normal [facility] CT Head WO ContrastOrdered B y: Vielka Ching on 12-24-2020 No acute intracranial abnormality. [facility] [facility] Phone: EXAMINATION: CT OF T HE HEAD WITHOUT CONTRAST 12/24/2020 8:27 pm TECHNIQUE: CT of the head was performed without the administration of intravenous contrast. Dose modulation, iterative reconstruction, and/or weight based adjustment of the mA/kV was utilized to reduce the radiation dose to as low as reasonably achievable. COMPARISON: None. HISTORY: ORDERING SYSTEM PROVIDED HISTORY: headache TECHNOLOGIST PROVIDED HISTORY: headache Decision Support Exception - unselect if not a suspected or confirmed emergency medical condition->Emergency Medical Condition (MA) Is the patient ?->No FINDINGS: BRAIN/VENTRICLES: There is no acute intracranial hemorrhage, mass effect or midline shift. No abnormal extra-axial fluid collection. The antonio-white differentiation is maintained without evidence of an acute infarct. There is no evidence of hydrocephalus. ORBITS: The visualized portion of the orbits demonstrate no acute abnormality. SINUSES: Lsix-hr-kybiqdnx paranasal sinus mucosal thickening. SOFT TISSUES/SKULL: No acute abnormality of the visualized skull or soft tissues. [facility] Phone: Dimitri, Mhpn Incoming R adiant Results From [facility] - 12/24/2020 8:49 PM EDT EXAMINATION: CT OF THE HEAD WITHOUT CONTRAST 12/24/2020 8:27 pm TECHNIQUE: CT of the head was performed without the administration of intravenous contrast. Dose modulation, iterative reconstruction, and/or weight based adjustment of the mA/kV was utilized to reduce the radiation dose to as low as reasonably achievable. COMPARISON: None. HISTORY: ORDERING SYSTEM PROVIDED HISTORY: headache TECHNOLOGIST PROVIDED HISTORY: headache Decision Support Exception - unselect if not a suspected or confirmed emergency medical condition->Emergency Medical Condition (MA) Is the patient ?->No FINDINGS: BRAIN/VENTRICLES: There is no acute intracranial hemorrhage, mass effect or midline shift. No abnormal extra-axial fluid collection. The antonio-white differentiation is maintained without evidence of an acute infarct. There is no evidence of hydrocephalus. ORBITS: The visualized portion of the orbits demonstrate no acute abnormality. SINUSES: Udts-dj-fewgvqor paranasal sinus mucosal thickening. SOFT TISSUES/SKULL: No acute abnormality of the visualized skull or soft tissues. IMPRESSION: No acute intracranial abnormality. [facility] Work Phone: [facility] Work Phone: Comp Metabolic Pr/rfx MGon 1 02-24-2020 Bilirubin [Mass/Vol] mg/dL Low 0.3-1.2 [facility] Comment on above: Performed By: #### C RONNX, CDP #### [facility] [address] [place] [address] Global Compensation Director: Souleymane Pineda MD (cont.) Normal [facility] Comment on above: Result Comment: Aver age GFR for 20-29 years old: 116 mL/min/1.73sq m Chronic Kidney Disease: <60 mL/min/1.73sq m Kidney failure: <15 mL/min/1.73sq m eGFR calculated using average adult body mass. Additional eGFR calculator available at: http://[email or web address].com/multiple_crcl_2012.htm Performed By: #### C MPX, CDP #### [facility] [address] [place] [address] Global Compensation Director: Souleymane Pineda MD Albumin [Mass/Vol] 4.0 g/dL Normal 3.5-5.2 [facility] Comment on above: Performed By: #### C MPX, CDP #### [facility] [address] [place], [place] [id number] Global Compensation Director: Souleymane Pineda MD Albumin/Glob Ratio 1.5 Normal 1.0-2.5 [facility] Comment on above: Performed By: #### C MPX, CDP #### [facility] [address] [place], [place] [phone] Global Compensation Director: Souelymane Pineda MD Alkaline Phos 90 U/L Normal 35-[address] [facility] Comment on above: Performed By: #### C MPX, CDP #### [facility] [address] [place], [place] [phone] Global Compensation Director: Souleymane Pineda MD ALT [Catalytic activity/Vol] 40 U/L High 5-33 [facility] Comment on above: Performed By: #### C MPX, CDP #### [facility] [address] [place], [place] [phone] Global Compensation Director: Souleymane Pineda MD Anion gap [Moles/Vol] 11 mmol/L Normal 9-17 [facility] Comment on above: Performed By: #### C MPX, CDP #### [facility] [address] [place], [place] [phone] Global Compensation Director: Souleymane Pineda MD AST [Catalytic activity/Vol] 19 U/L Normal <32 [facility] Comment on above: Performed By: #### C MPX, CDP #### [facility] [address] [place], [place] [phone] Global Compensation Director: Souleymane Pineda MD BUN/CRE Ratio 15 Normal 9-[address] [facility] Comment on above: Performed By: #### C MPX, CDP #### [facility] [address] [place], [place] [phone] Global Compensation Director: Souleymane Pineda MD Calcium [Mass/Vol] 8.9 mg/dL Normal 8.6-10.4 [facility] Comment on above: Performed By: #### C MPX, CDP #### [facility] [address] [place], [place] [phone] Global Compensation Director: Souleymane Pineda MD Chloride [Moles/Vol] 104 mmol/L Normal 98-107 [facility] Comment on above: Performed By: #### C MPX, CDP #### [facility] [address] [place], [place] [phone] Global Compensation Director: Souleymane Pineda MD CO2 [Moles/Vol] 24 mmol/L Normal 20-31 [facility] Comment on above: Performed By: #### C MPX, CDP #### [facility] [address] [place], [place] [phone] Global Compensation Director: Souleymane Pineda MD Creatinine [Mass/Vol] 0.60 mg/dL Normal 0.50-0.90 [facility] Comment on above: Performed By: #### C MPX, CDP #### [facility] [address] [place], [place] [phone] Global Compensation Director: Souleymane Pineda MD GFR, Amer >60 Normal >60 [facility] Comment on above: Performed By: #### C MPX, CDP #### [facility] [address] [place], [place] [phone] Global Compensation Director: Souleymane Pineda MD GFR,non Amer >60 Normal >60 [facility] Comment on above: Performed By: #### C MPX, CDP #### [facility] [address] [place], [place] [phone] Global Compensation Director: Souleymane Pineda MD Glucose [Mass/Vol] 91 mg/dL Normal 70-99 [facility] Comment on above: Performed By: #### C MPX, CDP #### [facility] [address] [place], [place] [phone] Global Compensation Director: Souleymane Pineda MD Potassium [Moles/Vol] 4.0 mmol/L Normal 3.7-5.3 [facility] Comment on above: Performed By: #### C MPX, CDP #### [facility] [address] [place] [address] [place] [address] Global Compensation Director: Souleymane Pineda MD Protein [Mass/Vol] 6.7 g/dL Normal 6.4-8.3 [facility] Comment on above: Performed By: #### C MPX, CDP #### [facility] [address] [place] [address] Dr[place], [place] [id number] Global Compensation Director: Souleymane Pineda MD Sodium [Moles/Vol] 139 mmol/L Normal 135-144 [facility] Comment on above: Performed By: #### C MPX, CDP #### [address] [place] [address] Global Compensation Director: Souleymane Pineda MD Staging: Normal [facility] Comment on above: Result Comment: Stag e 1: Some kidney damage normal GFR Stage 2: Mild kidney damage GFR 60-89 Stage 3: Moderate kidney damage GFR 30-59 Stage 4: Severe kidney damage GFR 15-29 Stage 5: Severe kidney damage GFR <15 ESRD - chronic treatment by dialysis or transplant Performed By: #### C MPX, CDP #### [address] [place] [id number] Global Compensation Director: Souleymane Pineda MD Urea nitrogen [Mass/Vol] 9 mg/dL Normal 6-20 [facility] Comment on above: Performed By: #### C MPX, CDP #### [facility] [address] [address] [place] [address] Global Compensation Director: Souleymane Pineda MD Comprehensive Metabolic Pane l w/ Reflex to MGOrdered By: Vielka Ching on 12-24-2020 Albumin [Mass/Vol] 4 g/dL 3.5 - 5.2 g/dL [facility] [employer] Work Phone: Albumin/Globulin [Mass ratio] 1.5 {ratio} [facility] Phone: ALP (Bld) [Catalytic activity/Vol] 90 U/L 35 - 104 U/L [facility] Phone: ALT [Catalytic activity/Vol] 40 U/L High 5 - 33 [facility]/L [facility]: Anion gap [Moles/Vol] 11 mmol/L 9 - 17 mmol/L [facility]: AST [Catalytic activity/Vol] 19 U/L <[address] [facility] Phone: Bilirubin [Mass/Vol] mg/dL Low 0.3 - 1.2 mg/dL [facility] Phone: Calcium [Mass/Vol] 8.9 mg/dL 8.6 - 10.4 mg/dL [facility] Phone: Chloride [Moles/Vol] 104 mmol/L 98 - 107 mmol/L [facility]: CO2 [Moles/Vol] 24 mmol/L 20 - 31 mmol/L [facility]: Creatinine [Mass/Vol] 0.6 mg/dL 0.50 - 0.90 mg/dL [facility] Phone: Free PSA/Total PSA [Mass fraction] 6.7 g/dL 6.4 - 8.3 g/dL [facility] Phone: GFR >60 >60 mL/min [employer] Phone: GFR Non- >60 >60 mL/min [facility] Phone: Glucose [Mass/Vol] 91 mg/dL 70 - 99 mg/dL [facility] [employer] Work Phone: Interpretation and review of laboratory results Abnormal [facility] Work Phone: Potassium [Moles/Vol] 4.0 mmol/L 3.7 - 5.3 mmol /L [employer] Phone: Sodium [Moles/Vol] 139 mmol/L 135 - 144 mmol/L [facility] [facility] Phone: Urea nitrogen (BldV) [Mass/Vol] 9 mg/dL 6 - 20 mg/dL [facility] Phone: Urea nitrogen/Creatinine (Bld) [Mass ratio] 15 [facility] Phone: [facility] Phone: Laboratory - Chemistry and C hemistry - challengeOrdered By: Vielka Ching on 12-24-2020 GFR/1.73 sq M.predicted MDRD (S/P/Bld) [Vol rate/Area] [facility] Phone: Comment on above: Average GFR for 20-2 9 years old: 116 mL/min/1.73sq m Chronic Kidney Disease: <60 mL/min/1.73sq m Kidney failure: <15 mL/min/1.73sq m eGFR calculated using average adult body mass. Additional eGFR calculator available at: http://[email or web address]/multiple_crcl_2011.htm Stage 1: Some kidney damage normal GFR Stage 2: Mild kidney damage GFR 60-89 Stage 3: Moderate kidney damage GFR 30-59 Stage 4: Severe kidney damage GFR 15-29 Stage 5: Severe kidney damage GFR <15 ESRD - chronic treatment by dialysis or transplant Vital Signs Date Time Vital Sign Value Performing Clinician Anup mccray 11-11-2022 10:55-0400 Diastolic blood pressure 63 mm[Hg] Infusion 8 Work Phone: [facility] 11-11-2022 10:55-0400 Heart rate 83 /min Infusion 8 Work Phone: [facility] 11-11-2022 10:55-0400 Systolic blood pressure 110 mm[Hg] Infusion 8 Work Phone: [facility] 07-28-2022 10:15-0400 Diastolic blood pressure 50 mm[Hg] Infusion 8 Work Phone: [facility] 07-28-2022 10:15-0400 Heart rate 80 /min Infusion 8 Work Phone: [facility] 07-28-2022 10:15-0400 Systolic blood pressure 105 mm[Hg] Infusion 8 Work Phone: [facility] 12-03-2021 09:47-0400 Diastolic blood pressure 81 mm[Hg] Jesse Wharton MD Work Phone: [facility] 12-03-2021 09:47-0400 Heart rate 66 /min Jesse Wharton MD Work Phone: [facility] 12-03-2021 09:47-0400 SaO2% (BldA) [Mass fraction] 100 % Jesse Wharton MD Work Phone: [facility] 12-03-2021 09:47-0400 Systolic blood pressure 131 mm[Hg] Jesse Wharton MD Work Phone: [facility] 10-20-2021 12:00-0400 Diastolic blood pressure 101 mm[Hg] Lucila Mota MD Work Phone: [facility] [employer] 10-20-2021 12:00-0400 Heart rate 85 /min Lucila Mota MD Work Phone: [facility] [employer] 10-20-2021 12:00-0400 Respiratory rate 12 /min Lucila Mota MD Work Phone: [facility] [employer] 10-20-2021 12:00-0400 SaO2% (BldA) [Mass fraction] 98 % Lucila Mota MD Work Phone: [facility] [employer] 10-20-2021 12:00-0400 Systolic blood pressure 136 mm[Hg] Lucila Mota MD Work Phone: [facility] [employer] 10-20-2021 08:00-0400 Body temperature 98.2 [degF] Lucila Mota MD Work Phone: [facility] [employer] 12-24-2020 19:36-0400 Body temperature 99 [degF] Vielka Ching DO Work Phone: [employer] Work Phone: 12-24-2020 19:36-0400 Diastolic blood pressure 80 mm[Hg] Vielka Ching DO Work Phone: [employer] Work Phone: 12-24-2020 19:36-0400 Heart rate 108 /min Vielka Ching DO Work Phone: [employer] Work Phone: 12-24-2020 19:36-0400 Respiratory rate 20 /min Vielka Ching DO Work Phone: [employer] Work Phone: 12-24-2020 19:36-0400 SaO2% (BldA) [Mass fraction] 96 % Vielka Ching DO Work Phone: [employer] Work Phone: 12-24-2020 19:36-0400 Systolic blood pressure 136 mm[Hg] Vielka Ching DO Work Phone: [employer] Work Phone: Encounters Encounter Date Encounter Type Care Provider Facility Start: 01-26-2023 End: 01-26-2023 ambulatory ZAY GREERO Not Available Start: 12-13-2022 Refill Logan Barth APR N.DOPSTER Work Phone: [facility] Comment on above: Refill Request Infusion (HEADACHE I NFUSIONS) Start: 12-12-2022 End: 12-12-2022 ambulatory KOLI GREEN Facility:[facility] Start: 12-09-2022 Refill Ольга zazueta SPINDRAW OPERATOR.DOPSTER Work Phone: Neurology Comment on above: Refill Request Start: 11-11-2022 End: 11-11-2022 ambulatory Infusion Main Chair 8 Work Phone: Neurology Comment on above: 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 with status migrainosus (Primary Dx) Start: 11-10-2022 End: 11-10-2022 ambulatory ОЛЬГА AGUILAR Facility:[facility] Start: 11-10-2022 End: 11-10-2022 ambulatory Ольга Aguilar SPINDRAW OPERATOR.DOPSTER Work Phone: Neurology Comment on above: 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 with status migrainosus (Primary Dx) Nerve block Start: 11-10-2022 Telephone encounter Suzan dinero SPINDRAW OPERATOR.DOPSTER Work Phone: Neurology Comment on above: Infusion Start: 11-10-2022 End: 11-10-2022 Telemedicine consultation with patient Ольга Aguilar SPINDRAW OPERATOR.DOPSTER Work Phone: [facility] Start: 10-12-2022 End: 10-12-2022 ambulatory Suzan Driver SPINDRAW OPERATOR.DOPSTER Work Phone: Neurology Comment on above: Botox Start: 10-12-2022 E-mail encounter fro m caregiver Suzan Driver APRN.DOPSTER Work Phone: [facility] Start: 09-29-2022 Telephone encounter Angely rousseau RN Work Phone: [facility] Comment on above: Insurance Authorizat ion (Zomig 5MG nasal spray/) Start: 09-27-2022 ambulatory Logan Barth APR N.DOPSTER Work Phone: [facility] Comment on above: My apt Monday Start: 09-16-2022 ambulatory Logan Barth APR N.DOPSTER Work Phone: [facility] Start: 09-16-2022 Patient encounter procedure Logan Barth SPINDRAW OPERATOR.DOPSTER Work Phone: [facility]UR HEADACHE [facility] Comment on above: Appointment Start: 09-12-2022 End: 09-12-2022 ambulatory LOGAN BARTH Facility:[facility] Start: 08-31-2022 End: 08-31-2022 ambulatory LOGAN GREEN Facility:[facility] Start: 08-31-2022 End: 08-31-2022 ambulatory Logan Green SPINDRAW OPERATOR.DOPSTER Work Phone: Neurology Comment on above: Chronic migraine w/o aura, not intractable, w/o stat migr (Primary Dx) Start: 08-31-2022 End: 08-31-2022 Telemedicine consultation with patient Logan Barth SPINDRAW OPERATOR.DOPSTER Work Phone: [facility] Start: 08-19-2022 ambulatory Ramsey Nunn acility:[facility] Start: 08-09-2022 ambulatory Logan Barth APR N.DOPSTER Work Phone: [facility]UR HEADACHE [facility] Comment on above: Pain Start: 08-08-2022 End: 08-08-2022 ambulatory Jesse Wharton MD Work Phone: Neurology Comment on above: 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 with status migrainosus (Primary Dx) Start: 08-08-2022 End: 08-08-2022 Telemedicine consultation with patient Jesse Wharton MD Work Phone: [facility] Start: 08-07-2022 ambulatory Jesse rick MD Work Phone: Neurology Comment on above: Name of medication Start: 07-29-2022 End: 07-29-2022 ambulatory MARIA DEL ROSARIO HAHN Facility:[facility] Start: 07-28-2022 End: 07-28-2022 [facility] Start: 07-28-2022 End: 07-28-2022 ambulatory Infusion Main Chair 8 Work Phone: Neurology Comment on above: 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 with status migrainosus (Primary Dx) Start: 07-27-2022 End: 07-27-2022 ambulatory MARIA DEL ROSARIO HAHN Facility:[facility] Start: 07-21-[address] ZAY BLAS . Facili ty:[facility] Start: 07-14-2022 Encounter for other preprocedural examination DR ZAY BLAS . [facility] Start: 07-12-2022 End: 07-13-[address] ZAY BLAS . Facility:[facility] Start: 07-12-2022 End: 07-13-2022 Encounter for other preprocedural examination DR ZAY BLAS . Facility:[facility] Start: 07-05-2022 ambulatory KRISTOFER BURCIAGA Facility:[facility] Start: 06-27-2022 Telephone encounter Logan Barth APRN.CNP Work Phone: Neurology Comment on above: Appointment (infusio n) Start: 06-24-2022 End: 06-24-2022 ambulatory LOGAN BARTH Facility:[facility] Start: 06-20-2022 End: 06-20-2022 ambulatory MANJINDER DEAL Facility:[facility] Start: 06-19-2022 End: 06-19-2022 ambulatory CHAYITO NARVAEZ . Facility:[facility] Start: 06-13-2022 Admission to establishment Jesse Wharton MD Work Phone: Neurology Comment on above: Admission Start: 06-13-2022 ambulatory Jesse rick MD Work Phone: [facility] Start: 06-11-2022 End: 06-11-2022 ambulatory DENNIS ALSTON . Facility:[facility] Start: 06-08-2022 End: 06-08-2022 ambulatory MARY PAULINO . Facility:[facility] Start: 06-07-2022 ambulatory Jesse rick MD Work Phone: Neurology Comment on above: Migraines Start: 05-23-2022 End: 05-24-2022 ambulatory PATRICIA WALSH Facility:[facility] Start: 05-08-2022 End: 05-08-2022 ambulatory LUH CAPONE . Facility:[facility] Start: 04-01-2022 End: 04-01-2022 Evaluation and management of inpatient DAVID GOLDMAN Facility:[facility] Start: 03-31-2022 End: 04-01-[address] ANGÉLICA ARTHUR Facility:[facility] Start: 01-14-2022 End: 01-14-2022 ambulatory SUKHDEEP DOCKERY Facility:[facility] Start: 01-07-2022 End: 01-07-2022 ambulatory MANJINDER DEAL Facility:[facility] Start: 12-19-2021 ambulatory Jesse rick MD Work Phone: Neurology Comment on above: Medication Start: 12-03-2021 End: 12-03-2021 Patient encounter procedure Jesse Wharton MD Work Phone: Neurology Comment on above: Chronic migraine w/o aura, not intractable, w/o stat migr (Primary Dx) Start: 11-10-2021 End: 11-10-2021 ambulatory Nelly Saldaña KRISTOFER Work Phone: Neurology Comment on above: Seizure-like activit y (HCC) (Primary Dx) Start: 11-10-2021 End: 11-10-2021 Telemedicine consultation with patient Nelly Saldaña KRISTOFER Work Phone: [facility] Start: 11-09-2021 ambulatory Tyrone Dolan MD, PhD Work Phone: [facility] Start: 11-09-2021 Patient encounter procedure Tyrone Dolan MD, PhD Work Phone: Neurology Comment on above: Request Veido appoin tment Start: 11-08-2021 ambulatory Tyrone Dolan MD, PhD Work Phone: [facility] Start: 11-08-2021 Patient encounter procedure Tyrone Dolan MD, PhD Work Phone: Neurology Comment on above: Appointment Start: 11-08-2021 Telephone encounter Tyrone Dolan MD, PhD Work Phone: Neurology Comment on above: Orders Start: 11-04-2021 End: 11-04-2021 ambulatory MANJINDER SAY Facility: Start: 10-29-2021 End: 10-29-2021 ambulatory Tyrone Dolan MD, PhD Work Phone: Neurology Comment on above: Psychogenic nonepile ptic seizure (Primary Dx); Spells of trembling; Chronic intractable headache, unspecified headache type Start: 10-29-2021 End: 10-29-2021 Telemedicine consultation with patient Tyrone Dolan MD, PhD Work Phone: [facility] Start: 10-26-2021 Patient encounter procedure Román Storey MD Work Phone: Neurology Comment on above: Seizure-like activit y (HCC) (Primary Dx) Start: 10-19-2021 End: 10-20-2021 Evaluation and management of inpatient LUCILA MOTA [facility] Start: 10-19-2021 End: 10-20-2021 Evaluation and management of inpatient Lucila Mota MD Work Phone: [facility] Start: 10-19-2021 End: 10-19-2021 ambulatory SHAIKH Jospeh WALLS Facility:[facility] Start: 10-07-2021 End: 10-07-[address] ZAY BLAS . Facility:[facility] Start: 10-06-2021 End: 10-06-2021 ambulatory SUKHDEEP DOCKERY Facility:[facility] Start: 10-03-2021 End: 10-04-2021 ambulatory MANJINDER DEAL Facility:[facility] Start: 10-01-2021 End: 10-02-2021 Evaluation and management of inpatient DR ANGÉLICA ARTHUR Facility:[facility] Start: 10-01-2021 Encounter for preprocedural laboratory examination DR ZAY BLAS . [facility] Start: 09-29-2021 End: 09-30-[address] ZAY BLAS . Facility:[facility] Start: 09-29-2021 End: 09-30-2021 Encounter for preprocedural laboratory examination DR ZAY BLAS . Facility:[facility] Start: 09-21-2021 End: 09-22-[address] ANGÉLICA ARTHUR Facility:[facility] Start: 09-14-2021 End: 09-15-[address] ANGÉLICA ARTHUR Facility:[facility] Start: 08-14-2021 End: 08-14-2021 ambulatory BLUE GRACE Facility:[facility] Start: 08-14-2021 End: 08-14-2021 ambulatory BLUE GRACE Facility:[facility] Start: 12-24-2020 End: 12-24-2020 Emergency department patient visit ANGÉLICA ARTHUR [facility] Start: 12-24-2020 End: 12-24-2020 Emergency department patient visit Vielka Ching DO Work Phone: [facility] ED Comment on above: Migraine without sta tus migrainosus, not intractable, unspecified migraine type (Primary Dx) Start: 02-18-2020 End: 02-18-2020 Telephone encounter Román Storey Work Phone: Neurology Comment on above: Future Appointment ( [place], [place], Any) Procedures Date Procedure Procedure Detail Performing Clinician Start: 10-29-2021 Adult depression scr eening assessment Tyrone Dolan MD, PhD Work Phone: Start: 10-20-2021 EEG VIDEO MONITORING Marcy Perez SPINDRAW OPERATOR - DOPSTER Work Phone: Start: 10-20-2021 BASIC METABOLIC PANE L W/ REFLEX TO MG FOR LOW K Puri Rikki Mota MD Work Phone: Start: 10-20-2021 Blood count complete auto&auto difrntl wbc Lo Perez SPINDRAW OPERATOR - DOPSTER Work Phone: Start: 10-20-2021 IMMATURE PLATELET FRACTION Lo Perez SPINDRAW OPERATOR - DOPSTER Work Phone: Start: 10-19-2021 Assay of lactate Uday Perez SPINDRAW OPERATOR [employer] Work Phone: Start: 10-19-2021 Ecg routine ecg w/le ast 12 lds w/i&r Lo Perez SPINDRAW OPERATOR - DOPSTER Work Phone: Start: 10-19-2021 Mri brain brain stem w/o w/contrast material Lo Perez SPINDRAW OPERATOR - DOPSTER Work Phone: Start: 10-19-2021 RESPIRATORY CARE EVALUATION ONLY Lo Perez SPINDRAW OPERATOR - DOPSTER Work Phone: Start: 10-01-2021 Resection of Bilater al Fallopian Tubes, Open Approach CHAYITO NARVAEZ . Start: 10-01-2021 Resection of Uterus, Open Approach CHAYITO NARVAEZ . Start: 12-24-2020 Blood count complete auto&auto difrntl wbc Vielka Ching DO Work Phone: Start: 12-24-2020 Ct head/brain w/o co ntrast material Vielka Ching DO Work Phone: Plan of Treatment Date Care Activity Detail Author Start: 09-20-2025 DTaP/Tdap/Td vaccine (7 - Td or Tdap) DTaP/Tdap/Td vaccine (7 - Td or Tdap) [facility] Start: 09-20-2025 Urine microalbumin profile DTaP,Tdap,Td Vaccine (7 - Td or Tdap) [facility] Start: 10-29-2022 Adult depression screening assessment DEPRESSION SCREENING [facility] Start: 10-21-2022 Influenza vaccination [facility] Start: 02-20-2022 DEPRESSION ASSESSMENT DEPRESSION ASSESSMENT [facility] Start: 10-26-2021 End: 10-26-2022 SARS-CoV-2 (COVID-19) RNA [Presence] in Respiratory specimen by SAURABH with probe detection PRE-PROCEDURE & PRE-OPERATIVE COVID Microbiology Routine Seizure-like activity (HCC) Expected: 10/26/2021, Expires: 10/26/2022 [facility] Work Phone: Comment on above: Expected: 10/26/2021 , Expires: 10/26/2022 Start: 10-21-2021 Influenza vaccination [facility] Start: 02-20-2021 DEPRESSION ASSESSMENT DEPRESSION ASS ESSMENT [facility] Start: 10-21-2020 Influenza vaccination Flu vaccine (# 1) [facility] Phone: Start: 11-13-2016 PAP TESTING PAP TESTING [facility] Start: 11-13-2016 Screening for malign ant neoplasm of cervix Pap smear [facility] Start: 11-13-2014 Urine microalbumin profile [facility] Start: 11-13-2013 Hepatitis C screening Hepatitis C [facility] Start: 11-13-2013 HEPATITIS C SCRE[facility] Start: 11-13-2013 HIV SCREENING HIV SCREENING [facility] Start: 2011 Screening for Chlamy rose trachomatis Chlamydia screen [facility] Start: 11-13-2010 HIV screening HIV screen [facility] [employer] Start: 11-13-2009 PEDS TO ADULT TRANSI TION ANNUAL ASSESSMENT PEDS TO ADULT TRANSITION ANNUAL ASSESSMENT [facility] Start: 2007 Adult depression screening assessment DEPRESSION SCREENING [facility] Start: 2007 COVID-19 Vaccine (1) COVID-19 Vaccin e (1) [facility] Phone: Start: 2007 Depression Screen Depression Screen [employer] Start: 2007 PEDS TO ADULT TRANSI TION INITIAL DISCUSSION PEDS TO ADULT TRANSITION INITIAL DISCUSSION [facility] Start: 11-13-2006 HPV VACCINE (1 - 2-d ose series) HPV VACCINE (1 - 2-dose series) [facility] Start: 11-13-2004 HPV VACCINE (1 - 2-d ose series) HPV VACCINE (1 - 2-dose series) [facility] Start: 05-13-1996 COVID-19 Vaccine (#1) COVID-19 Vacci ne (#1) [facility] [employer] Start: 1995 HEPATITIS B (1 of 3 - 3-dose series) HEPATITIS B (1 of 3 - 3-dose series) [facility] Start: 1995 Hepatitis B Vaccine (1 of 3 - 3-dose series) Hepatitis B Vaccine (1 of 3 - 3-dose series) [facility] Start: 1995 Hepatitis C screening Hepatitis C [facility] [facility] Phone: End: 10-26-2021 Basic Metabolic Panel w/ Reflex to MG Basic Metabolic Panel w/ Reflex to MG Lab Routine Daily for 7 Days starting 10/20/2021 until 10/26/2021 [employer] Phone: Comment on above: Daily for 7 Days sta rting 10/20/2021 until 10/26/2021 End: 10-26-2021 CBC W Auto Differential panel - Blood CBC with Auto Differential Lab Routine Daily for 7 Days starting 10/20/2021 until 10/26/2021, 1 completed [employer] Phone: Comment on above: Daily for 7 Days sta rting 10/20/2021 until 10/26/2021, 1 completed EKG 12 Lead EKG 12 Lead ECG Routine 10/19/2021 5:55 PM EDT [employer] Phone: End: 10-29-2022 EPIL AMBULATORY EEG EPIL AMBULATORY EEG NEUROLOGY Routine Psychogenic nonepileptic seizure Spells of trembling 1 Occurrences starting 10/29/2021 until 10/29/2022 [facility] Work Phone: Comment on above: 1 Occurrences starti ng 10/29/2021 until 10/29/2022 End: 10-26-2022 EPIL EEG LEAD PLACEMENT EPIL EEG LEAD PLACEMENT NEUROLOGY Routine Seizure-like activity (HCC) 1 Occurrences starting 10/26/2021 until 10/26/2022 [facility] Work Phone: Comment on above: 1 Occurrences starti ng 10/26/2021 until 10/26/2022 End: 11-08-2022 EPIL EEG ROUTINE EPIL EEG ROUTINE NEUROLOGY Routine Seizure-like activity (HCC) 1 Occurrences starting 11/08/2021 until 11/08/2022 [facility] Work Phone: Comment on above: 1 Occurrences starti ng 11/08/2021 until 11/08/2022 EPIL VEEG ADMIT TO EMU/PMU EPIL VEEG ADMIT TO EMU/PMU NEUROLOGY Routine Seizure-like activity (HCC) Ordered: 10/26/2021 [facility] Work Phone: Comment on above: Ordered: 10/26/2021 Oxygen therapy [[facility] Data Set] Initiate Oxygen Therapy Protocol Respiratory Care Routine As Needed until discontinued starting 10/19/2021 [facility] Work Phone: Comment on above: As Needed until disc ontinued starting 10/19/2021 [facility] Immunizations Immunization Date Immunization Notes Care Provider Fa cili 12-08-2017 influenza virus vacc ine, unspecified formulation Suzan Driver APRN.FADY Work Phone: [facility] Payers Date Payer Category Payer Self-pay 2017 Medicaid [employer] [employer] [place] [employer] [id number] 2017-Present Medicaid [id number] 2013 Medicaid [id number] 2011 Unknown 1995 Unknown [id number] 2.16.840.1.045057.3.579.2.173 1995 Unknown [id number] 2.16.840.1.826961.3.579.2.175 1995 Unknown [id number] 2.16.840.1.909491.3.579.2.727 1995 Unknown [id number] 2.16.840.1.537048.3.579.2.593 1995 Unknown [id number] 2.16.840.1.233438.3.579.2.593 1995 Unknown [id number] 2.16.840.1.791222.3.579.2.593 1995 Unknown [id number] 2.16.840.1.489396.3.579.2.593 1995 Unknown [id number] 2.16.840.1.811336.3.579.2.593 1995 Unknown [id number] 2.16.840.1.372752.3.579.2.593 1995 Unknown [id number] 2.16.840.1.484490.3.579.2.593 1995 Unknown [id number] 2.16.840.1.414800.3.579.2.593 1995 Unknown [id number] 2.16.840.1.064137.3.579.2.593 1995 Unknown [id number] 2.16.840.1.041605.3.579.2.593 1995 Unknown [id number] 2.16.840.1.624417.3.579.2.593 1995 Unknown [id number] 2.16.840.1.959233.3.579.2.593 1995 Unknown [id number] 2.16.840.1.535749.3.579.2.593 1995 Unknown [id number] 2.16.840.1.753368.3.579.2.593 1995 Unknown [id number] 2.16.840.1.010697.3.579.2.593 1995 Unknown [id number] 2.16.840.1.964435.3.579.2.593 1995 Unknown [id number] 2.16.840.1.651081.3.579.2.593 1995 Unknown [id number] 2.16.840.1.456837.3.579.2.593 1995 Unknown [id number] 2.16.840.1.410508.3.579.2.593 1995 Unknown [id number] 2.16.840.1.036447.3.579.2.593 1995 Unknown [id number] 2.16.840.1.006079.3.579.2.593 1995 Unknown [id number] 2.16.840.1.813353.3.579.2.593 1995 Unknown [id number] 2.16.840.1.704399.3.579.2.1259 1959 Unknown [id number] [id number].3.6 [id number] Social History Date Type Detail Facility Tobacco smoking stat [facility] Unknown if ever smoked [facility] Start: 1995 Sex Assigned At Not on file [facility] Start: 12-24-2020 End: 10-12-2022 Tobacco smoking status NEIS Never smoker [facility] Phone: Start: 12-24-2020 End: 10-12-2022 Tobacco use and exposure Never used [employer] Start: 12-24-2020 Alcohol intake Ex-drinker (finding) [employer] Work Phone: Start: 10-16-2021 End: 07-28-2022 Exposure to SARS-CoV-2 (event) Not sure [employer] Tobacco smoking stat us NHIS Tobacco smoking consumption unknown [facility] Work Phone: Start: 06-23-2022 End: 08-08-2022 History of Social function [facility] Start: 06-23-2022 End: 08-08-2022 Patient Health Questionnaire 2 item (PHQ-2) [Reported] [facility] Adult Depression Screening Assessment 2 [facility] Clinical Notes 12-24-2020 to 12-13-2022 Telephone Encounter - Mendoza Dooley - 12/13/2022 2:24 PM EDTTelephone Encounter - Jannette Mcleod RN - 12/13/2022 10:36 AM EDTTelephone Encounter - Wellington Reilly - 12/09/2022 10:15 AM EDT Note Date & Type Note Facility 12-13-2022 Miscellaneous Notes Images from the original note were not included. Called patient to schedule for 3 days of Non DHE IV infusions. She started she was currently driving and would call back to schedule Logan Barth APRN.FADY P Headache Infusion Scheduling Pool; P C21 Botox Pool Pls schedule for infusions, and also her next botox treatment - thank you. KG documented in this encounter [facility] 12-13-2022 Miscellaneous Notes PA submitted through CoverMyMeds for Orphenadrine Citrate ER 100mg. Cohen Code: [id number] documented in this encounter [facility] 12-12-2022 Note HNO ID: [id number] Author: Logan Barth APRN.CNP Service: ? Author Type: Nurse Practitioner Type: Progress Notes Filed: 12/12/2022 5:28 PM Note Text: Headache Center - Follow up Virtual Visit This visit was conducted as a virtual visit, with patient's permission, via Zoom. Patient location - Jarod Nicholson was identified by name and and consented to the video evaluation and its limitations. Based on this evaluation it may be necessary for them to schedule a follow up evaluation with me or other neurologists for formal physical examination and if necessary,other studies. I have communicated my name and active licensure. The patient's identity and physical location were verified at the time of this visit. Either the patient or their legal indirect sales representative has been informed of the risks and benefits of -- and alternatives to -- treatment through a remote evaluation and consents to proceed with the evaluation remotely. Accompanied by: Self Primary Problem List: ACTIVE PROBLEM LIST Seizure-Like Activity (Hcc) Psychogenic Nonepileptic Seizure Intractable Chronic Migraine Without Aura and With Status Migrainosus Chief Complaint: headaches Impression and Plan from last visit 11/10/2022, Harika: IMPRESSION: Coni Nicholson is a 26 year old year old female, with a history of asthma, anxiety, depression, PCOS, occipital neuralgia, psychogenic nonepileptic seizures, and migraine . Her headache keeps coming back, abortives only decrease the intensity of the headachewho presents virtually with need for infusion therapy for migraines. PLAN: Therapy plan placed: yes Non DHE(due to itching perineum with DHE) Home meds to hold (triptan/muscle relaxer/OTC/NSAIDs): Parafon Forte,Toradol,Phenergan,Zomig Interval Headache History: Pt logged in 10 mins late for her 30 min visit and was accommodated. Coni Nicholson is a 27 year old year old female, with a history of asthma, anxiety, depression, PCOS, occipital neuralgia, psychogenic nonepileptic seizures, and migraine following up today virtually for headaches. Since the last visit, the patient states that their headaches have not changed. She sent mc message on 12/07: Hey I?m out of my muscle relaxer and it didn?t seem to help really and there no change in my mingrains Can we talk about a different shot or maybe another infusion and to maybe nerve block and changing my muscle relaxer. Headaches have been worse for the past month, went to ED 12/08. Had only one infusion 11/11 which helped, but was told there was only one day ordered so she did not return for any more infusions. Headache 1 Number of migraine headache days/month: 15 Number of headache free days/month: 10 Days missed from work or school in the last month: 15 days Preventative: Botox, Lamictal, Emgality Abortive: Parafon Forte, Toradol, Phenergan, Zomig Analgesic Ketorolac (Toradol) Anti-Convulsant Lamotrigine (Lamictal) Topiramate (Topamax, Trokendi XL, Qudexy) Anti-Depressant and Antipsychotic Amitriptyline (Elavil) [place] (Eskalith, Lithobid) Nortriptyline (Pamelor, Aventyl) Anti-Migraine Dihydroergotamine (DHE-45, Migranal) Naratriptan (Amerge) Sumatriptan (Imitrex, Sumavel) Zolmitriptan (Zomig) Blood Pressure Propranolol (Inderal) MABs Fremanezumab (Ajovy) Galcanezumab (Emgality) Muscle Relaxer Baclofen (Lioresal) ineffective Methocarbamol (Robaxin) ineffective Orphenadrine (Norflex, Norgesic forte) helpful Tizanidine (Zanaflex) ineffective Supplements Magnesium No past medical history on file. No past surgical history on file. ALLERGIES Allergen Reactions Dihydroergotamine Intolerance Chest tightness, numbness and tingling in bilateral extremities, increased anxiety Adhesive Tape-Silic* Rash Azithromycin Other: See Comments Keflex [Cephalexin] Rash Keppra [Levetiracet* Itching Pyrilamine-Dextrome* Hives Reglan [Metoclopram* Intolerance Vortioxetine Hives Current Medications: orphenadrine ER (NORFLEX) 100 mg tabletTake 1 tablet by mouth two times a day as needed.Disp: 30 tabletRfl: 5 keTORolac (TORADOL) 10 mg tabletTake 1 tablet by mouth every 6 hours as needed (severe migraine).Disp: 20 tabletRfl: 2 promethazine (PHENERGAN) 12.5 mg tabletTake 1 tablet by mouth every 6 hours as needed.Disp: 90 tabletRfl: 2 lithium carbonate 300 mg tabletDisp: Rfl: magnesium oxide 400 mg magnesium capmagnesium 400 mg (as magnesium oxide) capsuleDisp: Rfl: traZODone (DESYREL) 100 mg tabletDisp: Rfl: vilazodone (VIIBRYD) 20 mg tabletDisp: Rfl: ZOLMitriptan (ZOMIG) 5 mg nasal sprayUse 1 [place] in the nose as needed at onset of migraine headache. If symptoms persist or return, may repeat dose in other nostril after 2 hours. Maximum of 2 sprays per 24 hoursDisp: 10 EachRfl: 2 lamoTRIgine (LAMICTAL) 150 mg tabletDisp: Rfl: diazePAM (VALIUM) 10 mg tabletDisp: Rfl: I have reviewed the Hea (more content not included)... [facility] 12-09-2022 Miscellaneous Notes Patient would also like to know if new muscle relaxer can be sent to pharmacy as the current one does not really help However is new one is unable to be sent patient would like current medication to be refilled Patient has been scheduled for an appt Physician: Harika Call from patient requesting refill. Please E-Scribe Last office visit 11/10/22 with Harika virtual Next office visit 12/12/22 with Green virtual Per Patient She is out of medication and would like to know if the provider can send a urgent refill as she is experiencing symptoms Requested Prescriptions Pending Prescriptions Disp Refills chlorzoxazone (PARAFON FORTE DSC) 500 mg tablet 30 tablet 0 Sig: Take 1 tablet by mouth up to three times a day as needed, immediately at onset of headache for rescue. keTORolac (TORADOL) 10 mg tablet 20 tablet 2 Sig: Take 1 tablet by mouth every 6 hours as needed (severe migraine). Pharmacy Name: [facility] documented in this encounter [facility] 11-11-2022 Note HNO ID: [id number] Author: Suzan Driver APRN.DOPSTER Service: ? Author Type: Nurse Practitioner Type: Progress Notes Filed: 11/11/2022 11:26 AM Note Text: Coni Nicholson in for day 1 of PINEDA infusions. Pt experienced itching with keppra. Benadryl given and itching resolved. Pt has had this reaction with keppra in the past, so it has been added to her SE/intolerance list. Keppra removed from therapy plan. Depakote considered, but cannot be given d/t pt taking lamictal. Pt denies other symptoms such as throat tightness, SOB. Pt ok to d/c since symptoms have resolved. Suzan Driver APRN.DOPSTER [facility] 11-11-2022 History of Presen t illness Narrative Coni Nicholson in for day 1 of PINEDA infusions. Pt experienced itching with keppra. Benadryl given and itching resolved. Pt has had this reaction with keppra in the past, so it has been added to her SE/intolerance list. Keppra removed from therapy plan. Depakote considered, but cannot be given d/t pt taking lamictal. Pt denies other symptoms such as throat tightness, SOB. Pt ok to d/c since symptoms have resolved. Suzan Driver APRN.DOPSTER 0824: Patient in for first day of IV infusions. Patient rated headache 8/10. Patient stated severe nausea and severe dizziness. Patient educated on medications to be administered. Patient verbalized understanding and agreed to proceed with infusions. She does have a bobtail driver. She would like PRN benadryl for sedation. She also would prefer second line anti emetic, phenergan. She stated it is more effective than zofran for her. 1025: Pt slept through infusion and woke up stating her whole body feels itchy. No rash/hives noted. Denies and SOB, chest pain, etc. Pt stated she has gotten itchy in the past with keppra and has received extra dose of benadryl in the past with it. Message sent to Suzan Driver CHIROPRACTIC NEUROLOGIST to update. Benadryl hypersensitivity released and administered. Pt also very nauseated. PRN zofran administered. 1050: Pt fell back asleep. Woke pt up and she she stated relief from all itching. Denies any other symptoms/side effects at this time. Pts infusions complete. Pt rated headache 7/10. Pt stated mild nausea and denied dizziness. 1055: Suzan Driver CHIROPRACTIC NEUROLOGIST in txt room to see patient. 1105: Pt discharged from treatment room via wheelchair due to drowsiness to her significant other. 1110: When cleaning chair after pt left, white pill found in chair. Tablet identified as baclofen. During initial assessment, after reviewing home medication list, pt denied any other medications missing from the list. Baclofen not listed on home medication list. Suzan Driver CHIROPRACTIC NEUROLOGIST notified. documented in this encounter [facility] 11-11-2022 Note HNO ID: [id number] Author: Coretta Quintanilla RN Service: ? Author Type: Registered Nurse Type: Progress Notes Filed: 11/11/2022 11:27 AM Note Text: 0824: Patient in for first day of IV infusions. Patient rated headache 8/10. Patient stated severe nausea and severe dizziness. Patient educated on medications to be administered. Patient verbalized understanding and agreed to proceed with infusions. She does have a bobtail driver. She would like PRN benadryl for sedation. She also would prefer second line anti emetic, phenergan. She stated it is more effective than zofran for her. 1025: Pt slept through infusion and woke up stating her whole body feels itchy. No rash/hives noted. Denies and SOB, chest pain, etc. Pt stated she has gotten itchy in the past with keppra and has received extra dose of benadryl in the past with it. Message sent to Suzan Driver CHIROPRACTIC NEUROLOGIST to update. Benadryl hypersensitivity released and administered. Pt also very nauseated. PRN zofran administered. 1050: Pt fell back asleep. Woke pt up and she she stated relief from all itching. Denies any other symptoms/side effects at this time. Pts infusions complete. Pt rated headache 7/10. Pt stated mild nausea and denied dizziness. 1055: Suzan Driver CHIROPRACTIC NEUROLOGIST in txt room to see patient. 1105: Pt discharged from treatment room via wheelchair due to drowsiness to her significant other. 1110: When cleaning chair after pt left, white pill found in chair. Tablet identified as baclofen. During initial assessment, after reviewing home medication list, pt denied any other medications missing from the list. Baclofen not listed on home medication list. Suzan Driver CHIROPRACTIC NEUROLOGIST notified. [facility] 11-10-2022 Note HNO ID: [id number] Author: Ольга Aguilar APRN.DOPSTER Service: ? Author Type: Nurse Practitioner Type: Progress Notes Filed: 11/10/2022 1:58 PM Note Text: Headache Center - Virtual Visit Infusion Triage This visit was conducted as a virtual visit, with patient's permission, via ZOOM. It required patient-provider interaction for the medical decision making as documented below. Patient stated name and Patient location [facility] I have communicated my name and active licensure. The patient's identity and physical location were verified at the time of this visit. Either the patient or their legal indirect sales representative has been informed of the risks and benefits of -- and alternatives to -- treatment through a remote evaluation and consents to proceed with the evaluation remotely. HPI: Coni Nicholson is a 26 year old year old female, with a history of asthma, anxiety, depression, PCOS, occipital neuralgia, psychogenic nonepileptic seizures, and migraine following up today virtually to discuss infusion therapy. Date of last visit: 10/12/22 Rhina Driver APRN Onset of current headache: 2 weeks What medications have you tried for this headache cycle: ER x 1, Toradol, Parafon Forte, Zomig NS New health events/diagnosis since last visit ([place]/stroke/DM/HTN/etc): no Cardiovascular risk factors: none Past infusion intolerances: July 2022(Zofran,phenergan,benadryl,D HE,Toradol,Keppra,mag,robaxin,) DHE itching perineum Headache 1 Location: frontal Quality/Description: throbbing, pressure and piercing/stabbing Associated Symptoms: Photophobia: yes Phonophobia: yes Nausea: yes Vomiting: yes Other symptoms: neck pain Worse with activity: yes Number of migraine headache days/month: 6 Migraine headache severity: 6/10 Number of headache free days/month: 10 Duration of headaches with treatment: intermittent Triggers: stress, weather changes, sleep- too little, fasting/hunger and dehydration Onset of headache to peak: varies Positional changes: no Most common time of day for headache to begin: anytime Aura: sunspots, blurred vision and 'pixelated vision' Allodynia: yes - occipital Days missed from work or school in the last month: 18 days Headache status since the last visit: worse Lifestyle: Sleep: 5-6 hours Exercise: home videos, treadmill Current Preventative: Botox ,Lamictal , Emgality Current Abortive: Parafon Forte, Toradol,Phenergan,Zomig Labs to Review: Component Latest Ref Rng AND Units 04/01/2022 WBC 3.70 - 11.00 k/uL 8.83 RBC 3.90 - 5.20 m/uL 4.73 Hemoglobin 11.5 - 15.5 g/dL 13.6 Hematocrit 36.0 - 46.0 % 40.6 MCV 80.0 - 100.0 fL 85.8 MCH 26.0 - 34.0 pg 28.8 MCHC 30.5 - 36.0 g/dL 33.5 RDW-CV 11.5 - 15.0 % 12.6 Platelet Count 150 - 400 k/uL 219 MPV 9.0 - 12.7 fL 10.0 Neut% % 89.1 Abs Neut (ANC) 1.45 - 7.50 k/uL 7.87 (H) Lymph% % 9.5 Abs Lymph 1.00 - 4.00 k/uL 0.84 (L) Murray% % 0.7 Abs Murray <0.87 k/uL 0.06 Eosin% % 0.1 Abs Eosin <0.46 k/uL <0.03 Baso% % 0.1 Abs Baso <0.11 k/uL <0.03 Immature Gran % % 0.5 IMMATURE GRANS (ABS) <0.10 k/uL 0.04 NRBC /100 WBC 0.0 Absolute nRBC <0.01 k/uL <0.01 DTYPE Auto Protein, Total 6.3 - 8.0 g/dL 6.9 Albumin 3.9 - 4.9 g/dL 4.2 Calcium 8.5 - 10.2 mg/dL 8.9 Bilirubin, Total 0.2 - 1.3 mg/dL 0.3 Alkaline Phosphatase 34 - 123 U/L 84 AST 13 - 35 U/L 14 ALT 7 - 38 U/L 12 Glucose 74 - 99 mg/dL 120 (H) BUN 7 - 21 mg/dL 11 Creatinine 0.58 - 0.96 mg/dL 0.64 Sodium 136 - 144 mmol/L 139 Potassium 3.7 - 5.1 mmol/L 4.5 Chloride 97 - 105 mmol/L 105 CO2 22 - 30 mmol/L 20 (L) Anion Gap 9 - 18 mmol/L 14 eGFR >=60 mL/min/1.73mA? 125 Magnesium 1.7 - 2.3 mg/dL 1.8 Phosphorus 2.7 - 4.8 mg/dL 2.7 TSH 0.270 - 4.200 mIU/L 0.537 [place] 0.6 - 1.2 mmol/L 0.1 (L) Analgesic Ketorolac (Toradol) Anti-Convulsant Lamotrigine (Lamictal) Topiramate (Topamax, Trokendi XL, Qudexy) Anti-Depressant and Antipsychotic Amitriptyline (Elavil) [place] (Eskalith, Lithobid) Nortriptyline (Pamelor, Aventyl) Anti-Migraine Dihydroergotamine (DHE-45, Migranal) Naratriptan (Amerge) Sumatriptan (Imitrex, Sumavel) Zolmitriptan (Zomig) Blood Pressure Propranolol (Inderal) MABs Fremanezumab (Ajovy) Galcanezumab (Emgality) Muscle Relaxer Baclofen (Lioresal) ineffective Methocarbamol (Robaxin) ineffective Orphenadrine (Norflex, Norgesic forte) helpful Tizanidine (Zanaflex) ineffective Supplements Magnesium No past surgical history on file. ALLERGIES Allergen Reactions Dihydroergotamine Intolerance Chest tightness, numbness and tingling in bilateral extremities, increased anxiety Adhesive Tape-Silic* Rash Azithromycin Other: See Comments Keflex [Cephalexin] Rash Pyrilamine-Dextrome* Hives Reglan [Metoclopram* Intolerance Vortioxetine Hives Current Medications: chlorzoxazone (PARAFON FORTE DSC) 500 mg tabletTake 1 tablet by mouth up to three times a day as need (more content not included)... [facility] 11-10-2022 History of Presen t illness Narrative Images from the original note were not included. Headache Center - Virtual Visit Infusion Triage This visit was conducted as a virtual visit, with patient's permission, via ZOOM. It required patient-provider interaction for the medical decision making as documented below. Patient stated name and Patient location [facility] I have communicated my name and active licensure. The patient's identity and physical location were verified at the time of this visit. Either the patient or their legal indirect sales representative has been informed of the risks and benefits of -- and alternatives to -- treatment through a remote evaluation and consents to proceed with the evaluation remotely. HPI: Coni Nicholson is a 26 year old year old female, with a history of asthma, anxiety, depression, PCOS, occipital neuralgia, psychogenic nonepileptic seizures, and migraine following up today virtually to discuss infusion therapy. Date of last visit: 10/12/22 Rhina Driver APRN Onset of current headache: 2 weeks What medications have you tried for this headache cycle: ER x 1, Toradol, Parafon Forte, Zomig NS New health events/diagnosis since last visit ([place]/stroke/DM/HTN/etc): no Cardiovascular risk factors: none Past infusion intolerances: July 2022(Zofran,phenergan,benadryl,D HE,Toradol,Keppra,mag,robaxin,) DHE itching perineum Headache 1 Location: frontal Quality/Description: throbbing, pressure and piercing/stabbing Associated Symptoms: Photophobia: yes Phonophobia: yes Nausea: yes Vomiting: yes Other symptoms: neck pain Worse with activity: yes Number of migraine headache days/month: 6 Migraine headache severity: 6/10 Number of headache free days/month: 10 Duration of headaches with treatment: intermittent Triggers: stress, weather changes, sleep- too little, fasting/hunger and dehydration Onset of headache to peak: varies Positional changes: no Most common time of day for headache to begin: anytime Aura: sunspots, blurred vision and 'pixelated vision' Allodynia: yes - occipital Days missed from work or school in the last month: 18 days Headache status since the last visit: worse Lifestyle: Sleep: 5-6 hours Exercise: home videos, treadmill Current Preventative: Botox ,Lamictal , Emgality Current Abortive: Parafon Forte, Toradol,Phenergan,Zomig Labs to Review: Component Latest Ref Rng & Units 04/01/2022 WBC 3.70 - 11.00 k/uL 8.83 RBC 3.90 - 5.20 m/uL 4.73 Hemoglobin 11.5 - 15.5 g/dL 13.6 Hematocrit 36.0 - 46.0 % 40.6 MCV 80.0 - 100.0 fL 85.8 MCH 26.0 - 34.0 pg 28.8 MCHC 30.5 - 36.0 g/dL 33.5 RDW-CV 11.5 - 15.0 % 12.6 Platelet Count 150 - 400 k/uL 219 MPV 9.0 - 12.7 fL 10.0 Neut% % 89.1 Abs Neut (ANC) 1.45 - 7.50 k/uL 7.87 (H) Lymph% % 9.5 Abs Lymph 1.00 - 4.00 k/uL 0.84 (L) Murray% % 0.7 Abs Murray <0.87 k/uL 0.06 Eosin% % 0.1 Abs Eosin <0.46 k/uL <0.03 Baso% % 0.1 Abs Baso <0.11 k/uL <0.03 Immature Gran % % 0.5 IMMATURE GRANS (ABS) <0.10 k/uL 0.04 NRBC /100 WBC 0.0 Absolute nRBC <0.01 k/uL <0.01 DTYPE Auto Protein, Total 6.3 - 8.0 g/dL 6.9 Albumin 3.9 - 4.9 g/dL 4.2 Calcium 8.5 - 10.2 mg/dL 8.9 Bilirubin, Total 0.2 - 1.3 mg/dL 0.3 Alkaline Phosphatase 34 - 123 U/L 84 AST 13 - 35 U/L 14 ALT 7 - 38 U/L 12 Glucose 74 - 99 mg/dL 120 (H) BUN 7 - 21 mg/dL 11 Creatinine 0.58 - 0.96 mg/dL 0.64 Sodium 136 - 144 mmol/L 139 Potassium 3.7 - 5.1 mmol/L 4.5 Chloride 97 - 105 mmol/L 105 CO2 22 - 30 mmol/L 20 (L) Anion Gap 9 - 18 mmol/L 14 eGFR >=60 mL/min/1.73m 125 Magnesium 1.7 - 2.3 mg/dL 1.8 Phosphorus 2.7 - 4.8 mg/dL 2.7 TSH 0.270 - 4.200 mIU/L 0.537 [place] 0.6 - 1.2 mmol/L 0.1 (L) Analgesic Ketorolac (Toradol) Anti-Convulsant Lamotrigine (Lamictal) Topiramate (Topamax, Trokendi XL, Qudexy) Anti-Depressant and Antipsychotic Amitriptyline (Elavil) [place] (Eskalith, Lithobid) Nortriptyline (Pamelor, Aventyl) Anti-Migraine Dihydroergotamine (DHE-45, Migranal) Naratriptan (Amerge) Sumatriptan (Imitrex, Sumavel) Zolmitriptan (Zomig) Blood Pressure Propranolol (Inderal) MABs Fremanezumab (Ajovy) Galcanezumab (Emgality) Muscle Relaxer Baclofen (Lioresal) ineffective Methocarbamol (Robaxin) ineffective Orphenadrine (Norflex, Norgesic forte) helpful Tizanidine (Zanaflex) ineffective Supplements Magnesium No past surgical history on file. ALLERGIES Allergen Reactions Dihydroergotamine Intolerance Chest tightness, numbness and tingling in bilateral extremities, increased anxiety Adhesive Tape-Silic* Rash Azithromycin Other: See Comments Keflex [Cephalexin] Rash Pyrilamine-Dextrome* Hives Reglan [Metoclopram* Intolerance Vortioxetine Hives Current Medications: chlorzoxazone (PARAFON FORTE DSC) 500 mg tablet^Take 1 tablet by mouth up to three times a day as needed, immediately at onset of headache for rescue.^Disp: 30 tablet^Rfl: 0 galcanezumab-gnlm (EMGALITY PEN) 120 mg/mL pen^Inject 1 mL subcutaneously once every month. Do not shake.^Disp: 1 Each^Rfl: 11 (Patient not taking: Reported on 10/12/2022) galcanezumab-gnlm 120 mg/mL subcutaneous pen injector (EMGALITY)^Inject 2 Pens subcutaneously one time only for 1 dose. For first month only. Refrigerate. Do not shake.^Disp: 2 Each^Rfl: 0 (Patient not taking: Reported on 10/12/2022) promethazine (PHENERGAN) 12.5 mg tablet^Take 1 tablet by mouth every 6 hours as needed.^Disp: 90 tablet^Rfl: 2 keTORolac (TORADOL) 10 mg tablet^Take 1 tablet by mouth every 6 hours as needed (severe migraine).^Disp: 20 tablet^Rfl: 2 lithium carbonate 300 mg tablet^^Disp: ^Rfl: magnesium oxide 400 mg magnesium cap^magnesium 400 mg (as magnesium oxide) capsule^Disp: ^Rfl: traZODone (DESYREL) 100 mg tablet^^Disp: ^Rfl: vilazodone (VIIBRYD) 20 mg tablet^^Disp: ^Rfl: ZOLMitriptan (ZOMIG) 5 mg nasal spray^Use 1 [place] in the nose as needed at onset of migraine headache. If symptoms persist or return, may repeat dose in other nostril after 2 hours. Maximum of 2 sprays per 24 hours^Disp: 10 Each^Rfl: 2 lamoTRIgine (LAMICTAL) 150 mg tablet^^Disp: ^Rfl: diazePAM (VALIUM) 10 mg tablet^^Disp: ^Rfl: HEADACHE SCORES: Headache Questions 08/31/2022 09/12/2022 11/10/2022 ER visits since last office visit: 2 - 4 Hospital stays since last office visit 0 - 1 Limited ADLs in the last month: 15 - 18 Days missed from work or school in the last month: - - 18 Days headache pain free in the last month: 15 - 10 Days per month with ALL of the following symptoms - decreased productivity, light sensitivity and nausea: 15 - 6 Initial improvement of headache after botox injection at last visit: Not applicable, I did not have a botox injection at my last visit - No change PRN medication usage in the last month: 15 - 15 Patient impression of improvement since last visit: Minimally improved No change Minimally improved HIT-6 08/08/2022 09/12/2022 11/10/2022 HIT-6 72 (Severe impact) 78 (Severe impact) 78 (Severe impact) OMID - 2/7 SCORES 08/08/2022 09/12/2022 11/10/2022 OMID-2 Score 2 6 6 OMID-7 Score - 21 14 Migraine Specific QOL - Higher scores indicate better HRQL 08/08/2022 09/12/2022 11/10/2022 Role Function-Restrictive Transformed Score (range: 0-100) 0 0 20 Role Function-Preventive Transformed Score (range: 0-100) 20 0 20 Emotional Function Transformed Score (range: 0-100) 40 0 33.33 PHQ-9 08/08/2022 09/12/2022 11/10/2022 Score 7 21 8 I have reviewed the Health Status Assessment responses and discussed these with the patient: yes Ольга Aguilar APRN.DOPSTER HEADACHE SCORES: Headache Questions 06/24/2022 08/31/2022 09/12/2022 ER visits since last office visit: 8 2 - Hospital stays since last office visit 2 0 - Limited ADLs in the last month: 15 15 - Days headache pain free in the last month: 10 15 - Days per month with ALL of the following symptoms - decreased productivity, light sensitivity and nausea: 15 15 - Initial improvement of headache after botox injection at last visit: Not applicable, I did not have a botox injection at my last visit Not applicable, I did not have a botox injection at my last visit - PRN medication usage in the last month: - 15 - Patient impression of improvement since last visit: Much worse Minimally improved No change HIT-6 06/24/2022 08/08/2022 09/12/2022 HIT-6 78 (Severe impact) 72 (Severe impact) 78 (Severe impact) OMID - 2/7 SCORES 06/24/2022 08/08/2022 09/12/2022 OMID-2 Score 1 2 6 OMID-7 Score - - 21 Migraine Specific QOL - Higher scores indicate better HRQL 06/24/2022 08/08/2022 09/12/2022 Role Function-Restrictive Transformed Score (range: 0-100) 0 0 0 Role Function-Preventive Transformed Score (range: 0-100) 0 20 0 Emotional Function Transformed Score (range: 0-100) 0 40 0 PHQ-9 06/24/2022 08/08/2022 09/12/2022 Score 8 7 21 Review of Systems: Review of system : unchanged from the previous visit (sleep patterns, mood, energy, appetite, stress, exercising). Sleep: Frequent awakenings Mood: irritable Energy: Low Appetite: decreased Weight: loss 12 lbs Stress: High Exercising: Yes, videos, treadmill Physical Examination: Vital Signs: No vital signs taken due to nature of virtual visit. General: well appearing, in no acute distress, alert, obese Pain Behaviors: solicited verbal complaints Neurological: Mental Status: Alert and oriented to person, place and time. Affect is normal. Speech is spontaneous and fluent without dysarthria and normal in rate, volume and articulation. 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 Attention span and concentration are good. HEENT: Head is normocephalic and features were symmetric. Musculoskeletal: Patient able to sit upright in chair for entirety of visit. Cranial Nerves: III, IV, -EOMI: full. VII-face is symmetric without evidence of weakness. VIII-hearing intact. IMPRESSION: Coni Nicholson is a 26 year old year old female, with a history of asthma, anxiety, depression, PCOS, occipital neuralgia, psychogenic nonepileptic seizures, and migraine . Her headache keeps coming back, abortives only decrease the intensity of the headachewho presents virtually with need for infusion therapy for migraines. PLAN: Therapy plan placed: yes Non DHE(due to itching perineum with DHE) Home meds to hold (triptan/muscle relaxer/OTC/NSAIDs): Parafon Forte,Toradol,Phenergan,Zomig Instruct patient to follow up via phone/MyChart 7 days after infusion: yes 45 day follow up appointment: yes MEDICATION TREATMENT: Medications to Start Taking None HEADACHE MANAGEMENT: (You are the primary guardian of your health and headache. Keep track of all medications: This includes the reason for use, side effects and benefits.) Level of Service: Virtual Visit 25 minutes Ольга Aguilar APRN.FADY Headache Section [facility] November 10, 2022 documented in this encounter [facility] 11-10-2022 Miscellaneous Notes PATIENT SCHEDULED FOR TRIAGE AND TENTATIVE INFUSION NI PHONE Name of caller : Margaret Relationship to patient : Self If not self Will need patient permission to release results or disclose health information with called documented in fyi. Was permission obtained from patient ? Yes Patient identified by Name and Date of . ( Coni Nicholson, 1995). Yes Reason for Call : Other Patient wants to get infusions scheduled. Number to return call [phone] Okay to leave a message ? Yes Last office visit 10/12/22 with U[facility] Next office visit Not scheduled. Thank you calling [facility]. You will receive a return call within 48 hours ( or 2 business days if close to the weekend). If you feel that this is an urgent issue and needs immediate attention, it is recommended that you contact your primary care provider office or proceed to your nearest Urgent Care Center of Emergency Room ED for evaluation/treatment. documented in this encounter [facility] 10-12-2022 Note HNO ID: [id number] Author: Suzan Driver APRN.DOPSTER Service: ? Author Type: Nurse Practitioner Type: Progress Notes Filed: 10/12/2022 11:04 AM Note Text: Outpatient Headache Clinic - Follow Up Visit VS: BP 133/63 (BP Site: Left Arm, BP Position: Sitting, BP Cuff Size: Large Adult) Pulse 91 Ht 154.9 cm (5' 1 ) Wt 108.8 kg (239 lb 12.8 oz) SpO2 97% BMI 45.31 kg/m? Current Abortive: robaxin Change needed for current abortive? Yes - Specify: Ineffective Miscellaneous Patient Concerns: Pt interested in trialing a different muscle relaxer. Baclofen, tizanidine and robaxin are ineffective. Will trial parafon forte for rescue. Plan: Trial parafon forte Stop robaxin MEDICATION TREATMENT: Medications to Start Taking chlorzoxazone (PARAFON FORTE DSC) 500 mg tablet Take 1 tablet by mouth up to three times a day as needed, immediately at onset of headache for rescue. Headache education was done. Discussed lifestyle modification including increased oral hydration, decreased caffeine, exercise and stress management. Discussed treatment options including preventive and acute medications, natural supplements, and infusion therapy. Discussed medication overuse headache and to limit use of acute treatments to no more than 2 days/week or 10 days/month. Discussed medication side effects, adverse reactions and drug interactions. This was an additional level of service provided that was separate from the botox procedure. Level of service: [facility] level 3 (20-29 min). Time spent 20 min on the day of service, which included preparing to see the patient, [id number] patient care, completing clinical documentation, obtaining and/or reviewing separately obtained history, performing a medically appropriate examination, counseling and educating the patient/family/caregiver, and ordering medications, tests, or procedures. Suzan Driver APRN.DOPSTER BOTOX PROCEDURE VISIT New Onabotulinum Toxin A (BotoxTM) for Migraine Indication: Chronic Intractable Migraine Treatment #: 1 Referral Expiration: 09/14/2023 Number of moderate-severe migraine days/month: 15 Number of mild migraine days/month: 0 Number of headache free days/month: 15 (360 headache-free hours) Migraine severity: 710 The patient has been assessed for disorders which could contribute to breathing or swallowing difficulty, and there is no contraindication with PREEMPT Botox. There is no documented allergic reaction/hypersensitivity to any botulinum toxin and there is no active infection at proposed injection site. HEADACHE SCORES: Headache Questions 06/24/2022 08/31/2022 09/12/2022 ER visits since last office visit: 8 2 - Hospital stays since last office visit 2 0 - Limited ADLs in the last month: 15 15 - Days headache pain free in the last month: 10 15 - Days per month with ALL of the following symptoms - decreased productivity, light sensitivity and nausea: 15 15 - Initial improvement of headache after botox injection at last visit: Not applicable, I did not have a botox injection at my last visit Not applicable, I did not have a botox injection at my last visit - PRN medication usage in the last month: - 15 - Patient impression of improvement since last visit: Much worse Minimally improved No change HIT-6 06/24/2022 08/08/2022 09/12/2022 HIT-6 78 (Severe impact) 72 (Severe impact) 78 (Severe impact) OMID - 2/7 SCORES 06/24/2022 08/08/2022 09/12/2022 OMID-2 Score 1 2 6 OMID-7 Score - - 21 Migraine Specific QOL - Higher scores indicate better HRQL 06/24/2022 08/08/2022 09/12/2022 Role Function-Restrictive Transformed Score (range: 0-100) 0 0 0 Role Function-Preventive Transformed Score (range: 0-100) 0 20 0 Emotional Function Transformed Score (range: 0-100) 0 40 0 PHQ-9 06/24/2022 08/08/2022 09/12/2022 Score 8 7 21 Patient name: Coni Nicholson : 1995 ALLERGIES Allergen Reactions Dihydroergotamine Intolerance Chest tightness, numbness and tingling in bilateral extremities, increased anxiety Adhesive Tape-Silic* Rash Azithromycin Other: See Comments Keflex [Cephalexin] Rash Pyrilamine-Dextrome* Hives Reglan [Metoclopram* Intolerance Vortioxetine Hives UNIVERSAL PROTOCOL / SAFETY CHECKLIST Procedure: Onabotulinum toxin A for migraine Informed Consent Consent Obtained: Written [place] Protocol A moment to CARE was completed SIGN IN Personnel directly involved with the procedure wore the appropriate PPE Special Equipment: N/A Patient/Surrogate Stated/Verified: Patient name, Date of , Relevant allergies and Intended procedure TIME OUT Intended patient and procedure match the source document(s) Consent documented and matches the intended procedure No relevant labs, photos, and/or imaging studies were applicable for review. No correct side/site applicable for marking and visibility. No medicat (more content not included)... [facility] 10-12-2022 Note HNO ID: [id number] Author: Suzan Driver APRN.DOPSTER Service: ? Author Type: Nurse Practitioner Type: Progress Notes Filed: 10/12/2022 11:04 AM Note Text: New Onabotulinum Toxin A (BotoxTM) for Migraine Indication: Chronic Intractable Migraine Treatment #: 1 Referral Expiration: 09/14/2023 Number of moderate-severe migraine days/month: 15 Number of mild migraine days/month: 0 Number of headache free days/month: 15 (360 headache-free hours) The patient has been assessed for disorders which could contribute to breathing or swallowing difficulty, and there is no contraindication with PREEMPT Botox. There is no documented allergic reaction/hypersensitivity to any botulinum toxin and there is no active infection at proposed injection site. HEADACHE SCORES: Headache Questions 06/24/2022 08/31/2022 09/12/2022 ER visits since last office visit: 8 2 - Hospital stays since last office visit 2 0 - Limited ADLs in the last month: 15 15 - Days headache pain free in the last month: 10 15 - Days per month with ALL of the following symptoms - decreased productivity, light sensitivity and nausea: 15 15 - Initial improvement of headache after botox injection at last visit: Not applicable, I did not have a botox injection at my last visit Not applicable, I did not have a botox injection at my last visit - PRN medication usage in the last month: - 15 - Patient impression of improvement since last visit: Much worse Minimally improved No change HIT-6 06/24/2022 08/08/2022 09/12/2022 HIT-6 78 (Severe impact) 72 (Severe impact) 78 (Severe impact) OMID - 2/7 SCORES 06/24/2022 08/08/2022 09/12/2022 OMID-2 Score 1 2 6 OMID-7 Score - - 21 Migraine Specific QOL - Higher scores indicate better HRQL 06/24/2022 08/08/2022 09/12/2022 Role Function-Restrictive Transformed Score (range: 0-100) 0 0 0 Role Function-Preventive Transformed Score (range: 0-100) 0 20 0 Emotional Function Transformed Score (range: 0-100) 0 40 0 PHQ-9 06/24/2022 08/08/2022 09/12/2022 Score 8 7 21 VS: BP 133/63 (BP Site: Left Arm, BP Position: Sitting, BP Cuff Size: Large Adult) Pulse 91 Ht 154.9 cm (5' 1 ) Wt 108.8 kg (239 lb 12.8 oz) SpO2 97% BMI 45.31 kg/m? Patient name: Coni Nicholson : 1995 ALLERGIES Allergen Reactions Dihydroergotamine Intolerance Chest tightness, numbness and tingling in bilateral extremities, increased anxiety Adhesive Tape-Silic* Rash Azithromycin Other: See Comments Keflex [Cephalexin] Rash Pyrilamine-Dextrome* Hives Reglan [Metoclopram* Intolerance Vortioxetine Hives UNIVERSAL PROTOCOL / SAFETY CHECKLIST Procedure: Onabotulinum toxin A for migraine Informed Consent Consent Obtained: Written [place] Protocol A moment to CARE was completed SIGN IN Personnel directly involved with the procedure wore the appropriate PPE Special Equipment: N/A Patient/Surrogate Stated/Verified: Patient name, Date of , Relevant allergies and Intended procedure TIME OUT Intended patient and procedure match the source document(s) Consent documented and matches the intended procedure No relevant labs, photos, and/or imaging studies were applicable for review. No correct side/site applicable for marking and visibility. Medications required for procedure verified. No fire risk assessment and interventions applicable. No implant(s) inserted. SIGN OUT No specimen collected. No instruments, equipment or retained foreign bodies applicable. Post-procedure follow-up management communicated and Plan of Care Visit completed when applicable Written Consent Obtained: Written Injection Sites Left (Units) Left (Sites) Right (Units) Right (Sites) TOTAL (Units) Helmet Coverer 5 1 5 1 10 Procerus Units: 5 Sites: 1 5 Frontalis 10 2 10 2 20 Temporalis 20 4 20 4 40 Occipitalis 15 3 15 3 30 Cervical PSP 10 2 10 2 20 Trapezius 15 3 15 3 30 Total Units used: 155 Total Units wasted: 45 Prior Therapies Duration of Use Dose Side effect Analgesic Ketorolac (Toradol) Anti-Convulsant Lamotrigine (Lamictal) Topiramate (Topamax, Trokendi XL, Qudexy) Anti-Depressant and Antipsychotic Amitriptyline (Elavil) [place] (Eskalith, Lithobid) Nortriptyline (Pamelor, Aventyl) Anti-Migraine Naratriptan (Amerge) Sumatriptan (Imitrex, Sumavel) Zolmitriptan (Zomig) Blood Pressure Propranolol (Inderal) MABs Fremanezumab (Ajovy) Supplements Magnesium Suzan Driver APRN.DOPSTER Headache Section [facility] October 12, 2022 [facility] 10-06-2022 Miscellaneous Notes Ambulatory Pharmacy Prior Authorization Note Provider Intervention Required?: No- Pharmacy completed on your behalf. Rx Plan: Medicaid [facility] ([place]) Drug: Zomig 5MG nasal spray Cover My Meds Cohen: [id number] Determination: Approved Prior Authorization/Case #: n/a Prior Authorization Expiration: 03/27/23 Time to PA Submission in CMM: 15 min Time to PA Determination in CMM: Same day Additional Information: PLEASE NOTE: Pt will need follow up office visit to review/document efficacy and tolerability of treatment before prior auth expiration. Please ensure a future follow up appt is scheduled with your patient. This will ensure no interruption in patient's ability to obtain medication refills. Prescriptions will now be processed through [facility] for determination of next steps. For questions relating to this submission, please contact [facility] at [phone] [facility] received prescription(s) for Zomig 5MG nasal spray . Benefits investigation was conducted, indicating that a prior authorization is required. PA was initiated and pending review through [employer]. All pertinent clinical information was submitted to insurance. [facility] Cohen: [id number] Ordering Provider: Logan Barth APRN.CNP Murtaugh, Alisha, RN [facility] P: , F: documented in this encounter [facility] 09-28-2022 Miscellaneous Notes Patient last seen on 09/12/22. documented in this encounter [facility] 09-12-2022 Note HNO ID: [id number] Author: Logan Barth APRN.FADY Service: ? Author Type: Nurse Practitioner Type: Progress Notes Filed: 09/12/2022 9:35 AM Note Text: Headache Center - Follow up Virtual Visit During this COVID-19 pandemic, patient's headache clinic evaluation was scheduled as a virtual visit using the following platform Zoom - patient currently located in [place] Coni Nicholson was identified by name and and consented to the video evaluation and its limitations. Based on this evaluation it may be necessary for them to schedule a follow up evaluation with me or other neurologists for formal physical examination and if necessary,other studies. I have communicated my name and active licensure. The patient's identity and physical location were verified at the time of this visit. Either the patient or their legal indirect sales representative has been informed of the risks and benefits of -- and alternatives to -- treatment through a remote evaluation and consents to proceed with the evaluation remotely. Accompanied by: Self Primary Problem List: ACTIVE PROBLEM LIST Seizure-Like Activity (Hcc) Psychogenic Nonepileptic Seizure Intractable Chronic Migraine Without Aura and With Status Migrainosus Chief Complaint: headaches Impression and Plan from last visit 08/31/2022, me: Margaret Nicholson is a 26 year old year old female, with a history of asthma, anxiety, depression, PCOS, occipital neuralgia, psychogenic nonepileptic seizures, and migraine. Headaches were previously well controlled on Ajovy, but this is no longer covered by insurance. Has been in ED for headaches many times since discontinuing it. She does not have an effective rescue medication. Her neurological examination is essentially normal at this visit. PLAN: - Increase Keppra to 500 qhs - Emgality and Zomig NS - will follow up on auths/appeals - Toradol prn more severe migraine, rx refill sent to pharmacy - Phenergan prn, rx refill sent to pharmacy - Consider nerve block, botox Interval Headache History: Coni Nicholson is a 26 year old year old female, with a history of asthma, anxiety, depression, PCOS, occipital neuralgia, psychogenic nonepileptic seizures, and migraine following up today virtually for headaches. Since the last visit, the patient states that her headaches have improved. Keppra has helped headaches but she reports it has been making her feel irritable and angry at the world. Feels baclofen is no longer helpful and wondering if she can try a different muscle relaxant. Has tried tizanidine in the past and it did not help. She has not heard back about Emgality. Headache HPI Preventative: Lamictal 300 qhs - for depression/anxiety, lithium (also depression/anxiety) 400 qhs, mag ox 400 Abortive: naratriptan, phenergan, baclofen 10 tid, toradol Analgesic Ketorolac (Toradol) Anti-Convulsant Lamotrigine (Lamictal) Topiramate (Topamax, Trokendi XL, Qudexy) Anti-Depressant and Antipsychotic Amitriptyline (Elavil) [place] (Eskalith, Lithobid) Nortriptyline (Pamelor, Aventyl) Anti-Migraine Naratriptan (Amerge) Sumatriptan (Imitrex, Sumavel) Zolmitriptan (Zomig) Blood Pressure Propranolol (Inderal) MABs Fremanezumab (Ajovy) Supplements Magnesium History reviewed. No pertinent past medical history. History reviewed. No pertinent surgical history. ALLERGIES Allergen Reactions Dihydroergotamine Intolerance Chest tightness, numbness and tingling in bilateral extremities, increased anxiety Adhesive Tape-Silic* Rash Azithromycin Other: See Comments Keflex [Cephalexin] Rash Pyrilamine-Dextrome* Hives Reglan [Metoclopram* Intolerance Vortioxetine Hives Current Medications: methocarbamol (ROBAXIN) 500 mg tablet Take 1 tablet by mouth twice daily. promethazine (PHENERGAN) 12.5 mg tablet Take 1 tablet by mouth every 6 hours as needed. keTORolac (TORADOL) 10 mg tablet Take 1 tablet by mouth every 6 hours as needed (severe migraine). lithium carbonate 300 mg tablet magnesium oxide 400 mg magnesium cap magnesium 400 mg (as magnesium oxide) capsule traZODone (DESYREL) 100 mg tablet vilazodone (VIIBRYD) 20 mg tablet ZOLMitriptan (ZOMIG) 5 mg nasal spray Use 1 [place] in the nose as needed. SPRAY IN 1 NOSTRIL AT ONSET OF MIGRAINE HEADACHE. If symptoms persist or return, may repeat dose after 2 hours. Maximum: 5 mg/dose; 10 mg per 24 hours lamoTRIgine (LAMICTAL) 150 mg tablet diazePAM (VALIUM) 10 mg tablet I have reviewed the Health Status Assessment responses and discussed these with the patient: yes Logan Barth APRN.DOPSTER HEADACHE SCORES: Headache Questions 06/24/2022 08/31/2022 09/12/2022 ER visits since last office visit: 8 2 - Hospital stays since last office visit 2 0 - Limited ADLs in the last month: 15 15 - Days headache pain free in the last month: 10 15 - Days per month with ALL of the following symptoms - decreased productivity, light sensit (more content not included)... [facility] 08-31-2022 Note HNO ID: [id number] Author: Logan Barth APRN.FADY Service: ? Author Type: Nurse Practitioner Type: Progress Notes Filed: 08/31/2022 3:44 PM Note Text: Headache Center - Follow up Virtual Visit During this COVID-19 pandemic, patient's headache clinic evaluation was scheduled as a virtual visit using the following platform Zoom - patient currently located in [place] Coni Nicholson was identified by name and and consented to the video evaluation and its limitations. Based on this evaluation it may be necessary for them to schedule a follow up evaluation with me or other neurologists for formal physical examination and if necessary,other studies. I have communicated my name and active licensure. The patient's identity and physical location were verified at the time of this visit. Either the patient or their legal indirect sales representative has been informed of the risks and benefits of -- and alternatives to -- treatment through a remote evaluation and consents to proceed with the evaluation remotely. Accompanied by: Self Primary Problem List: ACTIVE PROBLEM LIST Seizure-Like Activity (Hcc) Psychogenic Nonepileptic Seizure Intractable Chronic Migraine Without Aura and With Status Migrainosus Chief Complaint: dizziness and headaches Impression and Plan from last visit 08/08/2022, Samples: Pt that I saw once 9 or so months ago. At the time, did not need preventative med. Since, the PINEDA's have worsened. She has been seeing one of the CHIROPRACTIC NEUROLOGIST's. It sounds like the plan is Emgality and Zomig nasal spray but it has been 2 months and she still hasn't heard about whether it has been approved. Has infusions which helped some. [place] kekenara worked the best. Has an appt with CHIROPRACTIC NEUROLOGIST in a week. I will give jeremy today until she can find out where emgality and zomig stand. Answered all questions. Interval Headache History: Coni Nicholson is a 26 year old year old female, with a history of asthma, anxiety, depression, PCOS, occipital neuralgia, psychogenic nonepileptic seizures, and migraine following up today virtually for headaches and dizziness. Plan when I last saw her on 06/24 was to start Emgality and Zomig, but she has not heard back about meds.Infusions helped for a little while, about [address] Wharton restarted her on Keppra 08/08, since that seemed to be most helpful in the past. It makes her tired but she is not getting seizures anymore with her migraines. Not sure it's helping the headaches though. She takes 250 at night and an extra 250 prn migraine. Headache 1 Number of migraine headache days/month: 15 Number of headache free days/month: 15 Preventative: Lamictal 100/150 - for depression/anxiety, lithium (also depression/anxiety), mag ox 400, keppra 250 qhs Abortive: naratriptan, phenergan, baclofen 10 tid, toradol, keppra 250 Prior therapies: Analgesic Ketorolac (Toradol) Anti-Convulsant Lamotrigine (Lamictal) Topiramate (Topamax, Trokendi XL, Qudexy) Anti-Depressant and Antipsychotic Amitriptyline (Elavil) [place] (Eskalith, Lithobid) Nortriptyline (Pamelor, Aventyl) Anti-Migraine Naratriptan (Amerge) Sumatriptan (Imitrex, Sumavel) Zolmitriptan (Zomig) Blood Pressure Propranolol (Inderal) MABs Fremanezumab (Ajovy) Supplements Magnesium No past medical history on file. No past surgical history on file. ALLERGIES Allergen Reactions Dihydroergotamine Intolerance Chest tightness, numbness and tingling in bilateral extremities, increased anxiety Adhesive Tape-Silic* Rash Azithromycin Other: See Comments Keflex [Cephalexin] Rash Pyrilamine-Dextrome* Hives Reglan [Metoclopram* Intolerance Vortioxetine Hives Current Medications: promethazine (PHENERGAN) 12.5 mg tablet Take 1 tablet by mouth every 6 hours as needed. keTORolac (TORADOL) 10 mg tablet Take 1 tablet by mouth every 6 hours as needed (severe migraine). levETIRAcetam (KEPPRA) 250 mg tablet Take 1 at bedtime. Can increase to bid after 2 weeks if needed lithium carbonate 300 mg tablet magnesium oxide 400 mg magnesium cap magnesium 400 mg (as magnesium oxide) capsule traZODone (DESYREL) 100 mg tablet vilazodone (VIIBRYD) 20 mg tablet galcanezumab-gnlm (EMGALITY PEN) 120 mg/mL pen Inject 1 mL subcutaneously once every month. Do not shake. galcanezumab-gnlm 120 mg/mL subcutaneous pen injector (EMGALITY) Inject 2 Pens subcutaneously one time only for 1 dose. For first month only. Refrigerate. Do not shake. ZOLMitriptan (ZOMIG) 5 mg nasal spray Use 1 [place] in the nose as needed. SPRAY IN 1 NOSTRIL AT ONSET OF MIGRAINE HEADACHE. If symptoms persist or return, may repeat dose after 2 hours. Maximum: 5 mg/dose; 10 mg per 24 hours lamoTRIgine (LAMICTAL) 150 mg tablet diazePAM (VALIUM) 10 mg tablet baclofen (LIORESAL) 10 mg tablet I have reviewed the Health Status Assessment responses and discussed these with the patient: yes Logan Barth APRN.DOPSTER HEADACHE SCORES: H (more content not included)... [facility] 08-31-2022 History of Presen t illness Narrative Headache Center - Follow up Virtual Visit During this COVID-19 pandemic, patient's headache clinic evaluation was scheduled as a virtual visit using the following platform Zoom - patient currently located in [facility] was identified by name and and consented to the video evaluation and its limitations. Based on this evaluation it may be necessary for them to schedule a follow up evaluation with me or other neurologists for formal physical examination and if necessary,other studies. I have communicated my name and active licensure. The patient's identity and physical location were verified at the time of this visit. Either the patient or their legal indirect sales representative has been informed of the risks and benefits of -- and alternatives to -- treatment through a remote evaluation and consents to proceed with the evaluation remotely. Accompanied by: Self Primary Problem List: ACTIVE PROBLEM LIST Seizure-Like Activity (Hcc) Psychogenic Nonepileptic Seizure Intractable Chronic Migraine Without Aura and With Status Migrainosus Chief Complaint: dizziness and headaches Impression and Plan from last visit 08/08/2022, Samples: Pt that I saw once 9 or so months ago. At the time, did not need preventative med. Since, the PINEDA's have worsened. She has been seeing one of the CHIROPRACTIC NEUROLOGIST's. It sounds like the plan is Emgality and Zomig nasal spray but it has been 2 months and she still hasn't heard about whether it has been approved. Has infusions which helped some. [place] keppra worked the best. Has an appt with CHIROPRACTIC NEUROLOGIST in a week. I will give keppra today until she can find out where emgality and zomig stand. Answered all questions. Interval Headache History: Coni Nicholson is a 26 year old year old female, with a history of asthma, anxiety, depression, PCOS, occipital neuralgia, psychogenic nonepileptic seizures, and migraine following up today virtually for headaches and dizziness. Plan when I last saw her on 06/24 was to start Emgality and Zomig, but she has not heard back about meds.Infusions helped for a little while, about [address] Wharton restarted her on Keppra 08/08, since that seemed to be most helpful in the past. It makes her tired but she is not getting seizures anymore with her migraines. Not sure it's helping the headaches though. She takes 250 at night and an extra 250 prn migraine. Headache 1 Number of migraine headache days/month: 15 Number of headache free days/month: 15 Preventative: Lamictal 100/150 - for depression/anxiety, lithium (also depression/anxiety), mag ox 400, keppra 250 qhs Abortive: naratriptan, phenergan, baclofen 10 tid, toradol, keppra 250 Prior therapies: Analgesic Ketorolac (Toradol) Anti-Convulsant Lamotrigine (Lamictal) Topiramate (Topamax, Trokendi XL, Qudexy) Anti-Depressant and Antipsychotic Amitriptyline (Elavil) [place] (Eskalith, Lithobid) Nortriptyline (Pamelor, Aventyl) Anti-Migraine Naratriptan (Amerge) Sumatriptan (Imitrex, Sumavel) Zolmitriptan (Zomig) Blood Pressure Propranolol (Inderal) MABs Fremanezumab (Ajovy) Supplements Magnesium No past medical history on file. No past surgical history on file. ALLERGIES Allergen Reactions Dihydroergotamine Intolerance Chest tightness, numbness and tingling in bilateral extremities, increased anxiety Adhesive Tape-Silic* Rash Azithromycin Other: See Comments Keflex [Cephalexin] Rash Pyrilamine-Dextrome* Hives Reglan [Metoclopram* Intolerance Vortioxetine Hives Current Medications: promethazine (PHENERGAN) 12.5 mg tablet Take 1 tablet by mouth every 6 hours as needed. keTORolac (TORADOL) 10 mg tablet Take 1 tablet by mouth every 6 hours as needed (severe migraine). levETIRAcetam (KEPPRA) 250 mg tablet Take 1 at bedtime. Can increase to bid after 2 weeks if needed lithium carbonate 300 mg tablet magnesium oxide 400 mg magnesium cap magnesium 400 mg (as magnesium oxide) capsule traZODone (DESYREL) 100 mg tablet vilazodone (VIIBRYD) 20 mg tablet galcanezumab-gnlm (EMGALITY PEN) 120 mg/mL pen Inject 1 mL subcutaneously once every month. Do not shake. galcanezumab-gnlm 120 mg/mL subcutaneous pen injector (EMGALITY) Inject 2 Pens subcutaneously one time only for 1 dose. For first month only. Refrigerate. Do not shake. ZOLMitriptan (ZOMIG) 5 mg nasal spray Use 1 [place] in the nose as needed. SPRAY IN 1 NOSTRIL AT ONSET OF MIGRAINE HEADACHE. If symptoms persist or return, may repeat dose after 2 hours. Maximum: 5 mg/dose; 10 mg per 24 hours lamoTRIgine (LAMICTAL) 150 mg tablet diazePAM (VALIUM) 10 mg tablet baclofen (LIORESAL) 10 mg tablet I have reviewed the Health Status Assessment responses and discussed these with the patient: yes Logan Barth APRN.DOPSTER HEADACHE SCORES: Headache Questions 06/24/2022 08/31/2022 ER visits since last office visit: 8 2 Hospital stays since last office visit 2 0 Limited ADLs in the last month: 15 15 Days headache pain free in the last month: 10 15 Days per month with ALL of the following symptoms - decreased productivity, light sensitivity and nausea: 15 15 Initial improvement of headache after botox injection at last visit: Not applicable, I did not have a botox injection at my last visit Not applicable, I did not have a botox injection at my last visit PRN medication usage in the last month: - 15 Patient impression of improvement since last visit: Much worse Minimally improved HIT-6 06/24/2022 08/08/2022 HIT-6 78 (Severe impact) 72 (Severe impact) OMID - 2/7 SCORES 10/29/2021 06/24/2022 08/08/2022 OMID-2 Score 2 1 2 Migraine Specific QOL - Higher scores indicate better HRQL 06/24/2022 08/08/2022 Role Function-Restrictive Transformed Score (range: 0-100) 0 0 Role Function-Preventive Transformed Score (range: 0-100) 0 20 Emotional Function Transformed Score (range: 0-100) 0 40 PHQ-9 10/29/2021 06/24/2022 08/08/2022 Score 14 8 7 Review of Systems: Review of system: unchanged from the previous visit (sleep patterns, mood, energy, appetite, stress, exercising). Physical Examination: Vital Signs: There were no vitals taken for this visit. General: well appearing, in no acute distress, alert Pain Behaviors: squinting Neurological: Mental Status: Alert and oriented to person, place and time. Affect is normal. Speech is spontaneous and fluent without dysarthria. Short and residential memory, cognition and general fund of knowledge are good. Attention span and concentration are excellent. HEENT: Head is normocephalic and features were symmetric. Musculoskeletal: Patient able to sit up right in chair for entirety of visit. Cranial Nerves: III, IV, -EOMI: full. VII-face is symmetric without evidence of weakness. VIII-hearing intact. IMPRESSION: No diagnosis found. IMPRESSION: Margaret Nicholson is a 26 year old year old female, with a history of asthma, anxiety, depression, PCOS, occipital neuralgia, psychogenic nonepileptic seizures, and migraine. Headaches were previously well controlled on Ajovy, but this is no longer covered by insurance. Has been in ED for headaches many times since discontinuing it. She does not have an effective rescue medication. Her neurological examination is essentially normal at this visit. PLAN: - Increase Keppra to 500 qhs - Emgality and Zomig NS - will follow up on auths/appeals - Toradol prn more severe migraine, rx refill sent to pharmacy - Phenergan prn, rx refill sent to pharmacy - Consider nerve block, botox Prior Authorization: We will get a precert for Calcitonin Gene Related Peptide Monoclonal Antibody, Galcanezumab. This patient meets AHS criteria for treatment with CGRP MAB, She has Chronic Migraine Headache (CM), Chronic Migraine without aura, without mention of intractable migraine without mention of status migrainosus which occurs at least 15 days per month for at least 4 hours per day. The FDA has approved CGRP MAB for prevention of migraine. Specifically, the patient has 15 migraines per month, lasting 4 or more hours/d associated with photophobia, phonophobia, nausea, neck pain for three or more months. Medication overuse headache has been ruled out. Patient is not currently taking a Gepant for acute treatment of her migraine. The following preventative medications have been tried for 3 or more months without benefit or discontinued due and/or side effects. Anti-Convulsant Lamotrigine (Lamictal) Topiramate (Topamax, Trokendi XL, Qudexy) Anti-Depressant and Antipsychotic Amitriptyline (Elavil) [place] (Eskalith, Lithobid) Nortriptyline (Pamelor, Aventyl) Blood Pressure Propranolol (Inderal) MABs Fremanezumab (Ajovy) Supplements Magnesium The following abortive medications have been tried but require high frequency use which can lead to Medication Overuse Headache: Analgesic Ketorolac (Toradol) Anti-Migraine Naratriptan (Amerge) Sumatriptan (Imitrex, Sumavel) Zolmitriptan (Zomig) HEADACHE MANAGEMENT: (You are the primary guardian of your health and headache. Keep track of all medications: This includes the reason for use, side effects and benefits.) MEDICATION TREATMENT: Medications to Start Taking promethazine (PHENERGAN) 12.5 mg tablet Take 1 tablet by mouth every 6 hours as needed. keTORolac (TORADOL) 10 mg tablet Take 1 tablet by mouth every 6 hours as needed (severe migraine). Discussed pathophysiology of headache. Discussed use of headache diary. Discussed triggers and lifestyle modifications including limiting caffeine consumption. Discussed treatment options, both abortive and preventive medications. Instructed patient about medications. Discussed potential adverse effects and drug interactions of medications. Headache education was done. Discussed lifestyle modification including increased oral hydration, decreased caffeine, exercise and stress management. Discussed treatment options including preventive and acute medications, natural supplements, and infusion therapy. Discussed medication overuse headache and to limit use of acute treatments to no more than 2 days/week or 10 days/month. Discussed medication side effects, adverse reactions and drug interactions. Written educational materials and patient instructions outlining all of the above were given. RESEARCH: None at this time Follow-up: 3 months Level of Service: Virtual Visit 30 minutes Logan Barth APRN.DOPSTER Headache Section [facility] August 31, 2022 documented in this encounter [facility] 08-11-2022 Miscellaneous Notes Patient just completed 3 days of Infusions 07/27, 07/28, and 07/29. She is also scheduled for a follow up on 08/16. Would you like me to try to move her appt sooner? Patient last seen on 08/08/22. 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 Vida Vazquez RN August 10, 2022 10:01 AM documented in this encounter [facility] 08-08-2022 Note HNO ID: [id number] Author: Jesse Wharton MD Service: ? Author Type: Physician Type: Progress Notes Filed: 08/08/2022 3:22 PM Note Text: VV I have communicated my name and active licensure. The patient's identity and physical location were verified at the time of this visit. Either the patient or their legal indirect sales representative has been informed of the risks and benefits of -- and alternatives to -- treatment through a remote evaluation and consents to proceed with the evaluation remotely. Pt that I saw once 9 or so months ago. At the time, did not need preventative med. Since, the PINEDA's have worsened. She has been seeing one of the CHIROPRACTIC NEUROLOGIST's. It sounds like the plan is Emgality and Zomig nasal spray but it has been 2 months and she still hasn't heard about whether it has been approved. Has infusions which helped some. [place] keppra worked the best. Has an appt with CHIROPRACTIC NEUROLOGIST in a week. I will give keppra today until she can find out where emgality and zomig stand. Answered all questions. Jesse Wharton MD Time spent: 18 mins (10 mins direct pt contact) [facility] 08-08-2022 History of Presen t illness Narrative VV I have communicated my name and active licensure. The patient's identity and physical location were verified at the time of this visit. Either the patient or their legal indirect sales representative has been informed of the risks and benefits of -- and alternatives to -- treatment through a remote evaluation and consents to proceed with the evaluation remotely. Pt that I saw once 9 or so months ago. At the time, did not need preventative med. Since, the PINEDA's have worsened. She has been seeing one of the CHIROPRACTIC NEUROLOGIST's. It sounds like the plan is Emgality and Zomig nasal spray but it has been 2 months and she still hasn't heard about whether it has been approved. Has infusions which helped some. [place] keppra worked the best. Has an appt with CHIROPRACTIC NEUROLOGIST in a week. I will give keppra today until she can find out where emgality and zomig stand. Answered all questions. Jesse Wharton MD Time spent: 18 mins (10 mins direct pt contact) documented in this encounter [facility] 07-29-2022 Note HNO ID: [id number] Author: Leonie Whitaker RN Service: ? Author Type: Registered Nurse Type: Progress Notes Filed: 07/29/2022 2:37 PM Note Text: Patient in for day 3 of infusion therapy. Patient rated headache pain 10 out of 10. Patient has severe nausea and mild dizziness. Education was provided for the patient on medications and treatment plan for the day. The patient verbalized understanding and agreed to the infusion. Patient reporting lower extremity edema starting yesterday. Bilateral feet and legs are swollen, no warmth or redness. Bilateral hands also appear swollen. Eloina Knight APRN. CNP in infusion room to assess patient . No change to therapy plan and advises patient to schedule follow up. Patient requesting second dose of IV benadryl for anxiety. 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 IV removed and patient discharged from infusion room to bobtail driver [facility] 07-29-2022 Note HNO ID: [id number] Author: Eloina Knight APRN.CNP Service: ? Author Type: Nurse Practitioner Type: Progress Notes Filed: 07/29/2022 2:37 PM Note Text: Margaret Nicholson presents today for day three of three days of IV infusions. Current Treatment Plan: DHE Vital Signs: BP 116/66 Pulse 79 Additional Concerns: Patient with lower extremity swelling today. Discussed importance of elevating her extremities and likely from increase in fluid volume. Also discussed that infusions can take 3 full days to work as she has not had relief. Discharge Instructions/Follow Up: Schedule follow up with ANDRZEJ next week to discuss response to IV treatment and next steps. Eloina Knight APRN.CNP July 29, 2022 [facility] 07-28-2022 Note HNO ID: [id number] Author: Leonie Whitaker RN Service: ? Author Type: Registered Nurse Type: Progress Notes Filed: 07/28/2022 11:32 AM Note Text: Patient in for day 2 of infusion therapy. Patient rated headache pain 10 out of 10. Patient has severe nausea and moderate dizziness. Education was provided for the patient on medications and treatment plan for the day. The patient verbalized understanding and agreed to the infusion. 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 IV removed and patient discharged from infusion room [facility] 07-28-2022 History of Presen t illness Narrative Patient in for day 2 of infusion therapy. Patient rated headache pain 10 out of 10. Patient has severe nausea and moderate dizziness. Education was provided for the patient on medications and treatment plan for the day. The patient verbalized understanding and agreed to the infusion. 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 IV removed and patient discharged from infusion room documented in this encounter [facility] 07-27-2022 Note HNO ID: [id number] Author: Coretta Quintanilla RN Service: ? Author Type: Registered Nurse Type: Progress Notes Filed: 07/28/2022 12:11 PM Note Text: Patient in for day 1 of infusion therapy. Patient rated headache pain 8 out of 10. Patient has severe nausea and mild dizziness. Education was provided for the patient on medications and treatment plan for the day. The patient verbalized understanding and agreed to the infusion. Patient reports that zofran is not effective for nausea for her, requests different pre-medication anti-emetic. Misty West APRN. DOPSTER messaged and orders phenergan PO to be given 1458: During first quarter dose of DHE, pt stated she is having chest tightness and numbness/tingling in bilateral hands and feet. Chest tightness rated at 5/10. Pt also feeling hot/flushed and reprting increased anxiety. DHE infusion stopped and primary fluids infusing. 1502: Chest tightness resolved. Pt still having mild tingling in bilateral feet. 1504: Pt requesting additional dose of PRN benadryl for increased anxiety. 1508: Pt stated all tingling/numbness/tightness completely resolved. Pt verbalized improvement in anxiety as well. Infusion complete, patient reports 2/10 headache, no nausea or dizziness. IV removed and patient discharged from infusion room. DHE added to patient's allergy/intolerance list and provider notified. [facility] 07-27-2022 Note HNO ID: [id number] Author: Misty West APRN.DOPSTER Service: ? Author Type: Nurse Practitioner Type: Progress Notes Filed: 07/28/2022 12:11 PM Note Text: Margaret Nicholson presents today for day 1 of three days of IV infusions. Current Treatment Plan: DHE Vital Signs: BP 117/81 Pulse 71 Additional Concerns: Could not tolerate DHE Follow up: for IV infusion 07/28/2022 Misty West APRN.CNP July 27, 2022 [facility] 06-27-2022 Miscellaneous Notes Images from the original note were not included. Spoke to patient about scheduling infusions. Patient would like to callback once she can figure out transportation. Logan Barth APRN.CNP P Headache Infusion Scheduling Pool Please sched for infusions - therapy plan placed. Logan Barth APRN.CNP documented in this encounter [facility] 06-24-2022 Note HNO ID: [id number] Author: Logan Barth APRN.CNP Service: ? Author Type: Nurse Practitioner Type: Progress Notes Filed: 07/27/2022 8:24 AM Note Text: Headache Center - Follow up Virtual Visit During this COVID-19 pandemic, patient's headache clinic evaluation was scheduled as a virtual visit using the following platform Zoom - patient currently located in [place] Margaret Nicholson was identified by name and and consented to the video evaluation and its limitations. Based on this evaluation it may be necessary for them to schedule a follow up evaluation with me or other neurologists for formal physical examination and if necessary,other studies. I have communicated my name and active licensure. The patient's identity and physical location were verified at the time of this visit. Either the patient or their legal indirect sales representative has been informed of the risks and benefits of -- and alternatives to -- treatment through a remote evaluation and consents to proceed with the evaluation remotely. Accompanied by: Self Primary Problem List: ACTIVE PROBLEM LIST Seizure-Like Activity (Hcc) Psychogenic Nonepileptic Seizure Intractable Chronic Migraine Without Aura and With Status Migrainosus Chief Complaint: dizziness Impression and Plan from last visit 12/03/2021, Samples: Ms. Nicholson has around 4 headaches a month at most. She actually probably has them only 3 times a month. They are of long duration. I think we are focused on abortive treatment now. I gave her Amerge as an abortive and recommended on the first day of the headache she take 3 ibuprofen with it as well. Another option might be Treximet, Frova or Relpax. If all that fails consider Nurtec. If I did have to add a prevention medicine I might increase her Effexor or consider adding Zonegran. I think the real treatment is going to be in her very intensive outpatient therapy. It is not a surprise that she is having intractable headaches as she is having to go through the trauma therapy. Hopefully when that improves will the headaches. Interval Headache History: Margaret Nicholson is a 26 year old year old female, with a history of asthma, anxiety, depression, PCOS, occipital neuralgia, psychogenic nonepileptic seizures, and migraine following up today virtually for headaches. Since the last visit, the patient states that her headaches are much worse. [employer] message 06/13: I was recently admitted to the [facility] for a horrible migraine I need to make a follow up visit to talk about what is the the next steps for these migraines and are they stress related? 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 Migraines and seizures keep recurring. Admitted to EMU, EEG did not show seizure activity despite observing her having seizure like episode, told stress induced. Thinks migraine triggers it because it comes before the seizure. This has been happening for a year or so. Migraine cocktail in ED sometimes helps, sometimes not, and if migraine gets worse she will have seizures. Sometimes back of head/neck pain baclofen helps, naratriptan does not help nor did Imitrex. When she was on Ajovy she had much less frequent migraines, but thinks wore off over time, and she had to stop it because insurance would no longer cover. Headache 1 Number of migraine headache days/month: 15 Number of headache free days/month: 10 Preventative: Lamictal 100/150 - for depression/anxiety, lithium (also depression/anxiety), mag ox 400 Abortive: naratriptan, phenergan, baclofen 10 tid Analgesic Ketorolac (Toradol) Anti-Convulsant Lamotrigine (Lamictal) Topiramate (Topamax, Trokendi XL, Qudexy) Anti-Depressant and Antipsychotic Amitriptyline (Elavil) [place] (Eskalith, Lithobid) Nortriptyline (Pamelor, Aventyl) Anti-Migraine Naratriptan (Amerge) Sumatriptan (Imitrex, Sumavel) Zolmitriptan (Zomig) Blood Pressure Propranolol (Inderal) MABs Fremanezumab (Ajovy) Supplements Magnesium History reviewed. No pertinent past medical history. History reviewed. No pertinent surgical history. ALLERGIES Allergen Reactions Adhesive Tape-Silic* Rash Azithromycin Other: See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 ([facility]) on 08/06/21 for migraines and seizures. There was no mention of brain mass in this documentation. She was referred to Dr. Muse for an occipital nerve block, started on Baclofen. She was instructed to get an EEG and MRI Brain with/without contrast that she was previously provided scripts for. Per the notes, patient is supposed to be on Lamictal 50mg daily but this is not one of the medications the family brought in. Patient recently underwent a total hysterectomy due to fibroids/cysts which mom states runs in the family. Mom states patient does not drink alcohol, use recreational drugs or smoke. On arrival to the Neuro ICU, Adrienne (CAMPUS AMBASSADOR) witnessed two brief (~10 seconds) episodes of generalized full body shaking. Episodes resolved without intervention. Patient examined shortly after the second episode. She opens her eyes with noxious stimuli. After a lot of encouragement, she weakly raised her arms and wiggled her toes. She will not answer simple orientation questions but when asked about pain she states her head, neck and belly hurt. States she fell a couple of days ago. She also was able to tell us that she has 4 children. No focal deficits noted. Patient not cooperative with examination. Last 24h: Patient had an episode of full body shaking lasting about 20 seconds last night witnessed by nursing, resolved spontaneously. Discussed with Dr. Land at that time and there was no EEG correlation. Patient had at least 3 more brief episodes of full body shaking overnight lasting <60 seconds each time. LTME with no epileptiform discharges. This morning, patient is Aox3 and following commands. She has a cheerful demeanor, states she was able to talk to her babies last night. Walked back from the bathroom with stand by assistance. Asking when she can get the LTME off. MRI brain results discussed with patient and mom. Records requested from [facility] where patient states she was seen and told about a brain mass. CURRENT MEDICATIONS: SCHEDULED MEDICATIONS: sodium chloride flush 5-40 mL IntraVENous 2 times per day enoxaparin 40 mg SubCUTAneous Daily lamoTRIgine 50 mg Oral Daily lidocaine 1 patch TransDERmal Daily CONTINUOUS INFUSIONS: sodium chloride PRN MEDICATIONS: sodium chloride flush, sodium chloride, ondansetron OR ondansetron, polyethylene glycol, sodium chloride flush, acetaminophen OR acetaminophen VITALS: Temperature Range: Temp: 98.5 F (36.9 C) Temp Av.7 F (37.1 C) Min: 98.3 F (36.8 C) Max: 98.9 F (37.2 C) BP Range: Systolic (24hrs), Av , Min:98 , Max:146 Diastolic (24hrs), Av, Min:52, Max:92 Pulse Range: Pulse Av.1 Min: 58 Max: 120 Respiration Range: Resp Av.1 Min: 12 Max: 19 Current Pulse Ox: SpO2: 97 % 24HR Pulse Ox Range: SpO2 Av.7 % Min: 97 % Max: 100 % Patient Vitals for the past 12 hrs: BP Temp Temp src Pulse Resp SpO2 10/20/21 0600 (!) 100/56 -- -- 83 19 97 % 10/20/21 0500 113/60 -- -- 74 19 99 % 10/20/21 0400 (!) 107/57 -- -- 75 16 99 % 10/20/21 0300 (!) 108/56 98.5 F (36.9 C) Oral 71 15 98 % 10/20/21 0200 (!) 100/53 -- -- 76 15 99 % 10/20/21 0100 (!) 98/52 98.7 F (37.1 C) -- 74 17 99 % 10/20/21 0000 127/71 98.8 F (37.1 C) Oral 88 14 99 % 10/19/21 2300 119/62 98.9 F (37.2 C) -- 72 19 99 % 10/19/21 2200 114/60 98.3 F (36.8 C) -- 73 16 97 % 10/19/21 2100 (!) 112/57 98.5 F (36.9 C) -- 78 13 97 % 08/30/22 2000 128/78 98.7 F (37.1 C) -- 80 16 100 % 10/19/21 1900 125/66 -- -- 87 12 -- There is no height or weight on file to calculate BMI. []<16 Severe malnutrition []16-16.99 Moderate malnutrition []17-18.49 Mild malnutrition []18.5-24.9 Normal []25-29.9 Overweight (not obese) []30-34.9 Obese class 1 (Low Risk) []35-39.9 Obese class 2 (Moderate Risk) []?40 Obese class 3 (High Risk) RECENT LABS: Lab Results Component Value Date WBC 4.4 10/20/2021 HGB 11.3 (L) 10/20/2021 HCT 35.5 (L) 10/20/2021 PLT See Reflexed IPF Result 10/20/2021 ALT 15 10/19/2021 AST 12 10/19/2021 NA 139 10/19/2021 K 3.9 10/19/2021 CL 107 10/19/2021 CREATININE 0.53 10/19/2021 BUN 10 10/19/2021 CO2 19 (L) 10/19/2021 24 HOUR INTAKE/OUTPUT: Intake/Output Summary (Last 24 hours) at 10/20/2021 0649 Last data filed at 10/19/2021 1800 Gross per 24 hour Intake -- Output 700 ml Net -700 ml IMAGING: MRI BRAIN W WO CONTRAST Result Date: 10/19/2021 Unremarkable MR brain. Labs and Images reviewed with: [] Dr. Nayan Badillo [] Dr. Efrain Castorena [x] Dr. Lucila Mota [] There are no new interval images to review. PHYSICAL EXAM CONSTITUTIONAL: Overweight. Sitting on the side of the bed after walking back from the bathroom. Alert and oriented x 3, in no acute distress. GCS 15. Nontoxic. No dysarthria. No aphasia. Cheerful demeanor. HEAD: normocephalic, atraumatic EYES: PERRL, EOMI ENT: moist mucous membranes NECK: supple, symmetric LUNGS: Equal air entry bilaterally, clear CARDIOVASCULAR: normal s1 / s2, RRR, distal pulses intact ABDOMEN: Soft, no rigidity NEUROLOGIC: Mental Status: A & O x3,awake Cranial Nerves: cranial nerves II-XII are grossly intact Motor Exam: Drift: absent Tone: normal Motor exam is symmetrical 5 out of 5 all extremities bilaterally Sensory: Touch: Right Upper Extremity: normal Left Upper Extremity: normal Right Lower Extremity: normal Left Lower Extremity: normal DRAINS: [x] There are no drains for Neuro Critical Care to monitor at this time. ASSESSMENT AND PLAN: This is a 25 y.o. female with a history of migraine headaches, anxiety, depression, seizures and recent total hysterectomy who presented as a transfer from [facility] for seizure like episodes. NEUROLOGIC: - Psychogenic nonepileptic seizures - MRI Brain with/without contrast unremarkable - LTME 10/19-10/20 did not show any epileptiform discharges, no EEG correlation with events captured - Continue home Lamictal 50mg QD (started by Psych) - F/U Psychiatrist (patient has appt 10/21) and Psychologist for behavioral therapy - Reduce stress - No need for AEDs - Goal SBP<160 - Neuro checks per protocol CARDIOVASCULAR: - Goal SBP<160, normotension - Check Troponin <6, EKG NSR - Continue telemetry PULMONARY: - Maintaining O2 sats on room air - History of asthma, Albuterol PRN RENAL/FLUID/ELECTROLYTE: - Normal renal functioning - BUN 8/ Creatinine 0.41 - Monitor urine output - Stop IVF - Replace electrolytes PRN - Daily BMP GI/NUTRITION: NUTRITION: - Passed nursing swallow evaluation - Start Regular diet - Bowel regimen: Glycolax PRN - GI prophylaxis: N/A ID: - Afebrile, Tmax 38.6C - No leukocytosis, WBC 4.4 - UA negative - Continue to monitor for fevers - Daily CBC HEME: - H&H 13.7/43.7 - Platelets 193 - Daily CBC ENDOCRINE: - Continue to monitor blood glucose, goal <180 OTHER: - PT/OT PROPHYLAXIS: Stress ulcer: N/A DVT PROPHYLAXIS: - SCD sleeves - Thigh High - Lovenox 40mg QD DISPOSITION: [x] OK for out of ICU from Neuro Critical Care standpoint. Plan for discharge home this afternoon. We will continue to follow along. For any changes in exam or patient status please contact Neuro Critical Care. UMANG Garcia CNP Neuro Critical Care Pager [phone] 10/20/2021 6:49 AM ALTM is running. Pt has MRI/ CT compatible electrodes Per patient mom, she is alert and oriented normally, but she is sedated at this point due to having multiple seizures. PT has a history of asthma and take ventolin 2 puffs PRN and nebulized albuterol PRN. She does not wear O2 at home, however, she currently on 1 liter saturating at 100%. documented in this encounter [email or web address] Phone: 10-01-2021 Note DISCHARGE SUMMARY DISCHARGE DATE: 10/02/2021 PRIMARY DIAGNOSES: 1. Menorrhagia. 2. Dysmenorrhea. 3. Dyspareunia. 4. Pelvic pain. PROCEDURE: Total abdominal hysterectomy with bilateral salpingectomy with cystoscopy. HOSPITAL COURSE: As expected. Please see chart for full details. LABORATORY DATA: Please see chart. COMPLICATIONS: None. DISCHARGE CONDITION: Stable. CONSULTATION: Anesthesia. DISCHARGE INSTRUCTIONS: 1.Diet: Regular. 2.Medications: a.Percocet 5/325 one to two p.o. every 4-6 hours p.r.n. pain. b.Motrin 800 one p.o. every 8 hours p.r.n. pain. 3.Followup in one week. Restrictions: Pelvic rest for 6 weeks. No heavy lifting. May drive when pain free and no longer on narcotics. [facility] 10-01-2021 Note OPERATIVE NOTE OPERATION DATE: 10/01/2021 PROCEDURE: Total abdominal hysterectomy with partial bilateral salpingectomy with cystoscopy. PREOPERATIVE DIAGNOSIS: Menorrhagia, dysmenorrhea, dyspareunia, pelvic pain. POSTOPERATIVE DIAGNOSIS: Menorrhagia, dysmenorrhea, dyspareunia, pelvic pain. ANESTHESIA: General. SURGEON: Zay Blas D.O. HOTEL SUPERINTENDENT: VERNA Yap URINE OUTPUT: Yellow and clear. BLOOD LOSS: 200 mL. FINDINGS: Significant adhesions of the bladder to the anterior abdominal wall. Normal appearing ovaries. Evidence of bilateral tubal ligation. Normal appearing uterus. SPECIMEN: Uterus and tubes. PROCEDURE: Patient was taken back to the Operating Room where she was given general anesthesia without difficulty. She was then prepped and draped in the normal sterile fashion. A Pfannenstiel skin incision was then made 2 cm above the symphysis and pubis and carried down to underlying rectus fascia using a Bovie. The fascia was incised in the midline and extended bilaterally using Smalls scissors. Two Cherie clamps were placed on the superior aspect of the fascia and dissected off the underlying rectus muscle. The same was performed on the inferior aspect as well. The muscle was then in the midline. The peritoneum was identified and entered bluntly. Peritoneum was then extended superiorly and inferiorly with good visualization of the bladder. An O'Castaneda- O-William retractor was placed into the patient's abdomen. The bowel was packed away with moist laparotomy sponges and the bladder blade was inserted. A Leahey tenaculum was placed on the patient's uterus and used for retraction. LigaSure apparatus was then used to come across the mesosalpinx from the fimbriated end to the uteroovarian ligament on the patient's right side which was then cauterized and transected. This was carried down serially through the broad ligament and across the round ligament. The bladder flap was then created using the Metzenbaum scissors, and the bladder was easily dissected off the patient's lower uterine segment. A curved Clarence was placed across the uterine artery on the right side which was clamped, transected, and suture ligated using #0 Monocryl. This was performed on the contralateral side as well. The bladder was further dissected and a Zeppelin clamp was then placed across the uterosacral and cardinal ligaments. This was transected and suture ligated using #0 Monocryl. This was performed on the contralateral side as well. The uterus was then amputated using Jaclyn scissors. The patient's cuff was closed using #0 PDS in a running locked fashion and this was transfixed to the ipsilateral uterosacral and cardinal ligaments. Excellent hemostasis was assured. The patient's abdomen was copiously irrigated using warm saline. Cystoscopy was performed. Bladder was intact. Efflux was noted from both ostia. Cystoscope was removed. After excellent hemostasis was assured, all instruments were removed from the patient's abdomen. The patient's peritoneum was closed using 3-0 Vicryl in a running fashion. The patient's fascia was closed using #0 Vicryl in a running fashion. The patient's skin was closed using 4-0 Vicryl on a Joaquín needle. The patient tolerated the procedure well. Sponge, lap, and needle counts were correct times two. Patient taken to the Recovery Room in stable condition. ?? [facility] 08-14-2021 Note PROCEDURE: US PELVIS TRANSVAG, 08/14/2021 9:01 AM EDT CLINICAL INDICATIONS: Acute pelvic pain, symptoms for 3 days 4 para 4. Personal history of endometriosis COMPARISON: CT abdomen 02/21/2020 TECHNIQUE: Transvaginal pelvic sonogram, grayscale color and spectral evaluation. FINDINGS: Uterus: 10.0 x 6.1 x 4.6 cm. Heterogeneous endometrial echo complex measures up to 1.3 cm. Subcentimeter nabothian paracervical cyst is seen. Focal uterine abnormality is not evident. Right ovary: 3.4 x 2.6 x 3.1 cm, volume 14 mL. Dominant ovarian follicle measures 2.7 x 1.9 x 2.3 cm. A small daughter cyst is favored. Left ovary: 2.4 x 1.9 x 2.5 cm, volume 6 mL. There is decreased anatomic resolution the left kidney given patient pain for acoustic transmission. Normal sonographic morphology. DUPLEX PELVIC VASCULATURE: There is intact flow within the ovarian tissue bilaterally by color-flow assessment. Combined arterial and venous spectral tracing is identified from within. Right resistive index 0.49. Left 0.40. No significant free fluid. IMPRESSION: 1. Subcentimeter nabothian paracervical cyst 2. Heterogeneous endometrium upper normal caliber, 1.3 cm. 3. Dominant 2.7 cm right ovarian follicle 4. Normal left ovarian volume in morphology. There is decreased anatomic resolution given severe pain while imaging the left adnexa. 5. No convincing sonographic sign of adnexal torsion Electronically authenticated by: NICOLE MEDELLIN Date: 2021-08-14 10:19 [facility] 12-24-2020 Hospital Discharg e Vielka Langston DO - 12/24/2020 Continue all home medications as prescribed. Follow up with your family doctor and neurologist. Return to the emergency department for new, worsening or worrisome symptoms. documented in this encounter [employer] Phone: Evaluation note Diagnosis Migraine without status migrainosus, not intractable, unspecified migraine type- Primary documented in this encounter [employer] Phone: evaluation note* Diagnosis Seizure-like activity (HCC)- Primary Other convulsions Seizure disorder (HCC) Unspecified epilepsy without mention of intractable epilepsy Psychogenic nonepileptic seizure documented in this encounter JEREMIAH BURR[facility] [employer] Phone: evaluation note* Diagnosis Seizure-like activity (HCC)- Primary Other convulsions [facility] Psychogenic nonepileptic seizure- Primary Spells of trembling Abnormal involuntary movements Chronic intractable headache, unspecified headache type [facility] Diagnosis Seizure-like activity (HCC)- Primary Other convulsions Psychogenic nonepileptic seizure [facility] Diagnosis Seizure-like activity (HCC)- Primary Other convulsions [facility] Diagnosis Chronic migraine w/o aura, not intractable, w/o stat migr- Primary [facility] Diagnosis 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 with status migrainosus- Primary Chronic migraine without aura, with intractable migraine, so stated, with status migrainosus [facility] Diagnosis 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 with status migrainosus- Primary Chronic migraine without aura, with intractable migraine, so stated, with status migrainosus [facility] Diagnosis Chronic migraine w/o aura, not intractable, w/o stat migr- Primary [facility] Diagnosis 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 with status migrainosus- Primary Chronic migraine without aura, with intractable migraine, so stated, with status migrainosus [facility] Diagnosis 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 with status migrainosus- Primary Chronic migraine without aura, with intractable migraine, so stated, with status migrainosus [facility] Chronic migraine w/o aura, not intractable, w/o stat migr Cervicalgia Migraine without aura and without status migrainosus, not intractable Migraine without aura, without mention of intractable migraine without mention of status migrainosus documented in this encounter [facility] for referral (narrative)* Outpatient Procedure (Routine) - Pending Review Specialty Diagnoses / Procedures [facility] Diagnoses Seizure-like activity (HCC) Procedures EPIL EEG LEAD PLACEMENT EEG EXTENDED MONITORING 61-119 MINUTES ELECTROENCEPHALOGRAM REC COMA/SLEEP ONLY Geri Madera APRN.CNP [address] [place] [address] [place] [address] Referral ID Status Reason Start Date Expiration Date Visits Requested Visits Authorized [id number] Pending Review Auto-Generat ed Referral 10/26/2021 10/26/2022 1 1 [facility] for referral (narrative)* Outpatient Procedure (Routine) - Pending Review Specialty Diagnoses / Procedures Referred By Contac t Referred To [facility] Diagnoses Psychogenic nonepileptic seizure Spells of trembling Procedures EPIL AMBULATORY EEG EEG COMPLETE STD PHYS/QHP&GT;84 HR W/O Tyrone Diaz MD, PhD [id number] [place] [address] [place] [id number] Referral ID Status Reason Start Date Expiration Date Visits Requested Visits Authorized [id number] Pending Review Auto-Generat ed Referral 10/29/2021 10/29/2022 1 1 * Outpatient Procedure (Routine) - Pending Review Specialty Diagnoses / Procedures [facility] Diagnoses Psychogenic nonepileptic seizure Spells of trembling Procedures EPIL AMBULATORY EEG EEG COMPLETE STD PHYS/QHP&GT;84 HR W/O VID Tyrone Dolan MD, PhD [address] [place] [address] [place] [address] Referral ID Status Reason Start Date Expiration Date Visits Requested Visits Authorized [id number] Pending Review Auto-Generat ed Referral 10/29/2021 10/29/2022 1 1 * Consult, Test, Treat (Routine) - Authorized Specialty Diagnoses / Procedures Referred By Contac t Referred To Contact Diagnoses Chronic intractable headache, unspecified headache type Procedures CONSULT TO HEADACHE CLINIC OFFICE/OUTPATIENT [facility] MDM 60-74 MINUTES Tyrone Dolan MD, PhD [address] [place] [address] Referral ID Status Reason Start Date Expiration Date Visits Requested Visits Authorized [id number] Authorized PCP Requested Referral 10/29/2021 10/29/2022 1 [facility] Procedure (Routine) - Pending Review Specialty Diagnoses / Procedures Referred By Contac t [facility] Diagnoses Seizure-like activity (HCC) Procedures EPIL EEG ROUTINE ELECTROENCEPHALOGRAM REC COMA/SLEEP ONLY Nelly Saldaña PA-C [address] [place] [address] [place] [address] Referral ID Status Reason Start Date Expiration Date Visits Requested Visits Authorized [id number] Pending Review Auto-Generat ed Referral 11/08/2021 11/08/2022 1 1 [facility] Advance Directives No Advanced Directives Records FoundDocuments on File Type Date 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 ACP-Advance Directive ACP-Power of Research Animal Attendant Latest Code Status on File Code Status Date Activated Date Inactivated Comments Full Code 10/19/2021 12:27 PM Full Code 10/19/2021 12:23 PM 10/19/2021 12:27 PM Summary Purpose Family History No Family History Records FoundNo Family History Records FoundNo Family History Records FoundNo Family History Records FoundNo Family History Records FoundNo Family History Records FoundNo Family History Records Found Medications Administered Section Inactive Administered Medications - up to 3 most recent administrations Medication Order MAR Action Action Date Dose Rate Site diphenhydrAMINE 25 mg injection (BENADRYL) 25 mg, INTRAVENOUS, NEEDED, 2 doses, Starting on Meg 07/28/22 at 0741, Until Meg 07/28/22 at 1332, Sedation/Dystonia/Akathis ia/Anxiety 3rd line Given 07/28/2022 8:28 AM EDT 25 mg keTORolac 30 mg injection (Toradol) 30 mg, INTRAVENOUS, ONCE, 1 dose, On Meg 07/28/22 at 0800, Ketorolac (Toradol) is indicated for the short-term (up to 5 days) management of moderately severe acute pain. Continuation of ketorolac (Toradol) beyond 5 days increases the risk of developing serious adverse events. Please verify the duration of therapy for ketorolac (Toradol)., If ordered PRN for pain, patient/guardian may elect to receive this medication for higher pain levels INSTEAD of the opioid, if preferred: N/A Given 07/28/2022 8:26 AM EDT 30 mg levETIRAcetam 500 mg injection (KEPPRA) 500 mg, INTRAVENOUS, ONCE, 1 dose, On Meg 07/28/22 at 0800, Administer IV push over 2-5 minutes. Given 07/28/2022 8:23 AM EDT 500 mg magnesium sulfate 1 g in D5W 100 mL 1 g, INTRAVENOUS, at 100-200 mL/hr, Administer over 0.5-1 Hours, ONCE, 1 dose, On Meg 07/28/22 at 0800, Magnesium Sulfate IV bolus will be infused at a rate of 1 gram/hr. The following care areas may administer a magnesium sulfate bolus at a rate of 2 grams/hr if necessary: 1) ICUs/PACU/ED 2) Adult Hematology/Oncology 3) Labor and Delivery 4) Cardiac Step Down 5) Headache Clinic The following care areas may administer a magnesium sulfate bolus at a rate of GREATER than 2 grams/hr if necessary: 1) Adult and Pediatric Asthma Exacerbations 2) [place] 3) Pediatric BMT and Hematology/Oncology 4) Eclampsia or Preeclampsia New Bag/Syringe/Bottle 07/28/2022 9:08 AM EDT 1 g 100 mL/hr methocarbamol iv infusion 1,000 mg in NaCl 0.9% 100 mL (ROBAXIN) 1,000 mg, INTRAVENOUS, Administer over 30 Minutes, ONCE, 1 dose, On Meg 07/28/22 at 0800, Administer IV while in recumbent position. Maintain position for at least 10-15 minutes following infusion. New Bag/Syringe/Bottle 07/28/2022 8:32 AM EDT 1,000 mg promethazine 25 mg tab(s) (PHENERGAN) 25 mg, ORAL, EVERY 4 HOURS NEEDED, 2 doses, Starting on Meg 07/28/22 at 0741, Until Meg 07/28/22 at 1332, Nausea/Vomiting - First Line - Enteral Given 07/28/2022 8:21 AM EDT 25 mg Inactive Administered Medications - up to 3 most recent administrations Medication Order MAR Action Action Date Dose Rate Site diphenhydrAMINE 25 mg injection (BENADRYL) 25 mg, INTRAVENOUS, NEEDED, 2 doses, Starting on Mon11/11/22 at 0823, Until Mon11/11/22 at 1326, Sedation/Dystonia/Akathis ia/Anxiety 3rd line Given 11/11/2022 8:39 AM EDT 25 mg diphenhydrAMINE 50 mg injection (BENADRYL) 50 mg, INTRAVENOUS, NEEDED, 1 dose, Starting on Mon11/11/22 at 1025, Until Mon11/11/22 at 1028, Administer per hypersensitivity/anaphyla xis grading in nursing communication Given 11/11/2022 10:28 AM EDT 50 mg keTORolac 30 mg injection (Toradol) 30 mg, INTRAVENOUS, ONCE, 1 dose, On Mon11/11/22 at 0830, Ketorolac (Toradol) is indicated for the short-term (up to 5 days) management of moderately severe acute pain. Continuation of ketorolac (Toradol) beyond 5 days increases the risk of developing serious adverse events. Please verify the duration of therapy for ketorolac (Toradol)., If ordered PRN for pain, patient/guardian may elect to receive this medication for higher pain levels INSTEAD of the opioid, if preferred: N/A Given 11/11/2022 8:42 AM EDT 30 mg levETIRAcetam 500 mg injection (KEPPRA) 500 mg, INTRAVENOUS, ONCE, 1 dose, On Mon11/11/22 at 0830, Administer IV push over 2-5 minutes. Given 11/11/2022 8:45 AM EDT 500 mg magnesium sulfate 1 g in D5W 100 mL 1 g, INTRAVENOUS, at 100-200 mL/hr, Administer over 0.5-1 Hours, ONCE, 1 dose, On Mon11/11/22 at 0830, Magnesium Sulfate IV bolus will be infused at a rate of 1 gram/hr. The following care areas may administer a magnesium sulfate bolus at a rate of 2 grams/hr if necessary: 1) ICUs/PACU/ED 2) Adult Hematology/Oncology 3) Labor and Delivery 4) Cardiac Step Down 5) Headache Clinic The following care areas may administer a magnesium sulfate bolus at a rate of GREATER than 2 grams/hr if necessary: 1) Adult and Pediatric Asthma Exacerbations 2) [place] 3) Pediatric BMT and Hematology/Oncology 4) Eclampsia or Preeclampsia New Bag/Syringe/Bottle 11/11/2022 9:21 AM EDT 1 g 100 mL/hr methocarbamol iv infusion 1,000 mg in NaCl 0.9% 100 mL (ROBAXIN) 1,000 mg, INTRAVENOUS, Administer over 30 Minutes, ONCE, 1 dose, On Mon11/11/22 at 0830, Administer IV while in recumbent position. Maintain position for at least 10-15 minutes following infusion. New Bag/Syringe/Bottle 11/11/2022 8:50 AM EDT 1,000 mg NaCl 0.9% 500 mL iv bolus 500 mL, INTRAVENOUS, at 999 mL/hr, Administer over 0.5 Hours, ONCE, 1 dose, On Mon11/11/22 at 0830 New Bag/Syringe/Bottle 11/11/2022 8:40 AM EDT 500 mL 999 mL/hr ondansetron (PF) 8 mg injection (ZOFRAN) 8 mg, INTRAVENOUS, EVERY 1 HOUR NEEDED, 2 doses, Starting on Mon11/11/22 at 0823, Until Mon11/11/22 at 1326, Nausea/Vomiting - First Line - Parenteral Given 11/11/2022 10:31 AM EDT 8 mg promethazine 25 mg tab(s) (PHENERGAN) 25 mg, ORAL, NEEDED, 1 dose, Starting on Mon11/11/22 at 0823, Until Mon11/11/22 at 0839, Nausea/Vomiting - Second Line - Enteral Given 11/11/2022 8:39 AM EDT 25 mg Reason for Referral Specialty Diagnoses / Procedures Referred By Contac t Referred To Contact Samples, MD Jesse [address] [place] [address] Referral ID Status Reason Start Date Expiration Date Visits Re quested Visits Authorized [id number] Closed 1 1 Additional Source Comments Source Comments (unrecognize d section and content) In the event this informatio n is protected by the Federal Confidentiality of Alcohol and Drug Abuse Patient Records regulations: The Federal rules restrict any use of the information to criminally investigate or prosecute any alcohol or drug abuse patient.[facility] the event this information is protected by the Federal Confidentiality of Alcohol and Drug Abuse Patient Records regulations: The Federal rules restrict any use of the information to criminally investigate or prosecute any alcohol or drug abuse patient.[facility] the event this information is protected by the Federal Confidentiality of Alcohol and Drug Abuse Patient Records regulations: The Federal rules restrict any use of the information to criminally investigate or prosecute any alcohol or drug abuse patient.[facility] the event this information is protected by the Federal Confidentiality of Alcohol and Drug Abuse Patient Records regulations: The Federal rules restrict any use of the information to criminally investigate or prosecute any alcohol or drug abuse patient.[facility] the event this information is protected by the Federal Confidentiality of Alcohol and Drug Abuse Patient Records regulations: The Federal rules restrict any use of the information to criminally investigate or prosecute any alcohol or drug abuse patient.[facility] the event this information is protected by the Federal Confidentiality of Alcohol and Drug Abuse Patient Records regulations: The Federal rules restrict any use of the information to criminally investigate or prosecute any alcohol or drug abuse patient.[facility] the event this information is protected by the Federal Confidentiality of Alcohol and Drug Abuse Patient Records regulations: The Federal rules restrict any use of the information to criminally investigate or prosecute any alcohol or drug abuse patient.[facility] the event this information is protected by the Federal Confidentiality of Alcohol and Drug Abuse Patient Records regulations: The Federal rules restrict any use of the information to criminally investigate or prosecute any alcohol or drug abuse patient.[facility] the event this information is protected by the Federal Confidentiality of Alcohol and Drug Abuse Patient Records regulations: The Federal rules restrict any use of the information to criminally investigate or prosecute any alcohol or drug abuse patient.[facility] the event this information is protected by the Federal Confidentiality of Alcohol and Drug Abuse Patient Records regulations: The Federal rules restrict any use of the information to criminally investigate or prosecute any alcohol or drug abuse patient.[facility] the event this information is protected by the Federal Confidentiality of Alcohol and Drug Abuse Patient Records regulations: The Federal rules restrict any use of the information to criminally investigate or prosecute any alcohol or drug abuse patient.[facility] the event this information is protected by the Federal Confidentiality of Alcohol and Drug Abuse Patient Records regulations: The Federal rules restrict any use of the information to criminally investigate or prosecute any alcohol or drug abuse patient.[facility] the event this information is protected by the Federal Confidentiality of Alcohol and Drug Abuse Patient Records regulations: The Federal rules restrict any use of the information to criminally investigate or prosecute any alcohol or drug abuse patient.[facility] the event this information is protected by the Federal Confidentiality of Alcohol and Drug Abuse Patient Records regulations: The Federal rules restrict any use of the information to criminally investigate or prosecute any alcohol or drug abuse patient.[facility] the event this information is protected by the Federal Confidentiality of Alcohol and Drug Abuse Patient Records regulations: The Federal rules restrict any use of the information to criminally investigate or prosecute any alcohol or drug abuse patient.[facility] the event this information is protected by the Federal Confidentiality of Alcohol and Drug Abuse Patient Records regulations: The Federal rules restrict any use of the information to criminally investigate or prosecute any alcohol or drug abuse patient.[facility] the event this information is protected by the Federal Confidentiality of Alcohol and Drug Abuse Patient Records regulations: The Federal rules restrict any use of the information to criminally investigate or prosecute any alcohol or drug abuse patient.[facility] the event this information is protected by the Federal Confidentiality of Alcohol and Drug Abuse Patient Records regulations: The Federal rules restrict any use of the information to criminally investigate or prosecute any alcohol or drug abuse patient.[facility] the event this information is protected by the Federal Confidentiality of Alcohol and Drug Abuse Patient Records regulations: The Federal rules restrict any use of the information to criminally investigate or prosecute any alcohol or drug abuse patient.[facility] the event this information is protected by the Federal Confidentiality of Alcohol and Drug Abuse Patient Records regulations: The Federal rules restrict any use of the information to criminally investigate or prosecute any alcohol or drug abuse patient.[facility] the event this information is protected by the Federal Confidentiality of Alcohol and Drug Abuse Patient Records regulations: The Federal rules restrict any use of the information to criminally investigate or prosecute any alcohol or drug abuse patient.[facility] the event this information is protected by the Federal Confidentiality of Alcohol and Drug Abuse Patient Records regulations: The Federal rules restrict any use of the information to criminally investigate or prosecute any alcohol or drug abuse patient.[facility] the event this information is protected by the Federal Confidentiality of Alcohol and Drug Abuse Patient Records regulations: The Federal rules restrict any use of the information to criminally investigate or prosecute any alcohol or drug abuse patient.[facility] the event this information is protected by the Federal Confidentiality of Alcohol and Drug Abuse Patient Records regulations: The Federal rules restrict any use of the information to criminally investigate or prosecute any alcohol or drug abuse patient.[facility] the event this information is protected by the Federal Confidentiality of Alcohol and Drug Abuse Patient Records regulations: The Federal rules restrict any use of the information to criminally investigate or prosecute any alcohol or drug abuse patient.[facility] the event this information is protected by the Federal Confidentiality of Alcohol and Drug Abuse Patient Records regulations: The Federal rules restrict any use of the information to criminally investigate or prosecute any alcohol or drug abuse patient.[facility] the event this information is protected by the Federal Confidentiality of Alcohol and Drug Abuse Patient Records regulations: The Federal rules restrict any use of the information to criminally investigate or prosecute any alcohol or drug abuse patient.[facility] the event this information is protected by the Federal Confidentiality of Alcohol and Drug Abuse Patient Records regulations: The Federal rules restrict any use of the information to criminally investigate or prosecute any alcohol or drug abuse patient.[facility] Reason for Visit (unrecogniz ed section and content) Reason Comments Future Appointment New PT, [place], Any Reason Comments Migraine seen at [facility] yest erday for Migrane and D & C for miscarrage Reason Comments New Patient Reason Comments Orders Reason Comments Seizures Follow Up Reason Comments Migraine x 2 week lasts up to 4 days light sensitivity, sees silver dots looks like stars. Goes into convulsions during migraines. No meds for migraines has ever worked. Reason Comments Appointment infusion Reason Comments Infusion Headache Specialty Diagnoses / Procedures Referred By Contac t Referred To Contact Neurology / HEADACHE Diagnoses DHE Procedures INFUSION HEADACHE Maria Del Rosario Hahn MD [address] [place] [address] Neur Headache [address] [place] [address] Referral ID Status Reason Start Date Expiration Date Visits Re quested Visits Authorized [id number] Closed 07/28/2022 09/26/2022 1 1 Reason Comments Chronic Migraine Reason Comments Chronic Migraine Reason Comments Insurance Authorization Zomig 5MG nasal spray Reason Comments Infusion Reason Comments Migraine Specialty Diagnoses / Procedures Referred By Contac t Referred To Contact Neurology / HEADACHE Diagnoses POSSIBLE DHE/WAITING FOR ORDERS Procedures INFUSION HEADACHE Self Neur Headache [address] [place] [address] Referral ID Status Reason Start Date Expiration Date V isits Requested Visits Authorized [id number] Authorized 11/10/2022 02/08/2023 1 99 Reason Onset Date Comments Refill Request 12/09/2022 Reason Onset Date Comments Refill Request 12/13/2022 Reason Comments Infusion HEADACHE INFUSIONS Scheduled Active and Recently Administ ered Medications (unrecognized section and content) Medication Order 12/22/2020 12/23/2020 12/24/2020 0.9 % sodium chloride bolus (COMPLETED) 1,000 mL, IntraVENous, at 1,000 mL/hr, Administer over 1 Hours, ONCE, On Meg 12/24/20 at 2030, For 1 dose 2041 (New Bag - Prov ider: Praveena Ruffin RN)2145 (Stopped - Provider: Praveena Ruffin RN) diphenhydrAMINE (BENADRYL) injection 50 mg (COMPLETED) 50 mg, IntraVENous, ONCE, On Meg 12/24/20 at 2030, For 1 dose 2044 (Given - Provid er: Praveena Ruffin RN) ketorolac (TORADOL) injection 15 mg (COMPLETED) 15 mg, IntraVENous, ONCE, On Meg 12/24/20 at 2030, For 1 dose 2044 (Given - Provid er: Praveena Ruffin RN) ondansetron (ZOFRAN) injection 4 mg (COMPLETED) 4 mg, IntraVENous, ONCE, On Meg 12/24/20 at 2030, For 1 dose 2043 (Given - Provid er: Praveena Ruffin RN) Scheduled Medication Order 10/18/2021 10/19/2021 10/20/2021 enoxaparin (LOVENOX) injection 40 mg 40 mg, SubCUTAneous, DAILY, First dose on Mon10/19/21 at 1245, Until Discontinued, Indication of Use: Prophylaxis-DVT/PE 1832 (Given - Provider: Adrienne Stephens RN) 0834 (Given - Provider: Clementine Cm RN) lamoTRIgine (LAMICTAL) tablet 50 mg 50 mg, Oral, DAILY, First dose on Mon10/19/21 at 1445, Until Discontinued 144 (Due) 0834 (Given - Provider: Clementine Cm RN) lidocaine 4 % external patch 1 patch 1 patch, TransDERmal, Administer over 12 Hours, DAILY, First dose on Mon10/20/21 at 0900, Apply 1 skin 2 packs daily for 12 hours on, 12 hours off 08 (Patch Applied - Provider: Clementine Cm RN)2033 (Due: Patch Removed - Provider: Clementine Cm RN) midazolam PF (VERSED) injection 1 mg (COMPLETED) 1 mg, IntraVENous, ONCE, 1 dose, On Mon10/19/21 at 1515, OK to repeat x1 for MRI 1707 (Given - Provider: Adrienne Stephens RN) sodium chloride flush 0.9 % injection 5-40 mL 5-40 mL, IntraVENous, EVERY 12 HOURS SCHEDULED (2 times per day), First dose on Mon10/19/21 at 2100, Until Discontinued, For Line Patency: Peripheral IV = 5 mL; Midline or Central Line = 10 mL/lumen. If following IV push medication, administer flush at same rate as the IV push. Flush volume is determined by type of infusion therapy being given. For non-viscous solutions use: Peripheral IV = 5 mL Midline or Central Line = 10 mL/lumen For viscous solutions (i.e. blood components, parenteral nutrition, contrast media, or after obtaining blood sample) use: Peripheral IV = 10 mL Midline or Central Line = 20 mL/lumen 2044 (Given - Provider: Brittney Santana RN) 1114 (Canceled Entry - Provider: Clementine R Novotney, RN)2100 (Due) Continuous Medication Order 10/18/2021 10/19/2021 10/20/2021 0.9 % sodium chloride infusion (CANCELED) IntraVENous, at 125 mL/hr, CONTINUOUS, Starting on Mon10/19/21 at 1245 1740 (New Bag - Provider: Adrienne Stephens RN) 0714 (Stopped - Provider: Yun Neal RN) PRN Medication Order 10/18/2021 10/19/2021 10/20/2021 0.9 % sodium chloride infusion IntraVENous, at 5-250 mL/hr, PRN, if patient receiving piggyback infusions and maintenance fluids are not ordered OR KVO fluids to protect IV site / prevent frequent line interruptions/ long duration, Starting on Mon10/19/21 at 1226, For piggyback infusion, administer at same rate as piggyback for a total of 25 mL. Enter 25 mL into dose field and piggyback rate into rate field of order. If piggyback is infusing at a rate less than 100 mL/hr, enter 25 mL into dose field and 100 mL/hr into rate field of order. For KVO fluids, enter rate of 20 mL/hr or less into rate field of order. acetaminophen (TYLENOL) suppository 650 mg(Linked Group 1) 650 mg, Rectal, EVERY 6 HOURS PRN, Starting on Mon10/19/21 at 2354, Until Discontinued, Pain Mild (1-3), Fever, For temp greater than 100.4 F (38 C), Administer if oral route cannot be used. 0003 (See Alternativ e - Provider: Brittney Santana RN)0834 (See Alternative - Provider: Clementine Cm RN) acetaminophen (TYLENOL) tablet 1,000 mg(Linked Group 1) 1,000 mg, Oral, EVERY 6 HOURS PRN, Starting on Mon10/19/21 at 2354, Until Discontinued, Pain Mild (1-3), Fever, For temp greater than 100.4 F (38 C), Maximum dose of acetaminophen is 4000 mg from all sources in 24 hours. 0003 (Given - Provid er: Brittney Santana RN - Comment: incision from c section)0834 (Given - Provider: Clementine Cm RN) acetaminophen (TYLENOL) tablet 650 mg (CANCELED) 650 mg, Oral, EVERY 6 HOURS PRN, Starting on Mon10/19/21 at 1226, Until Mon10/19/21 at 2354, Pain Mild (1-3), Fever, For temp greater than 100.4 F (38 C), Maximum dose of acetaminophen is 4000 mg from all sources in 24 hours. 1832 (Given - Provider: Adrienne Stephens RN) gadoteridol (PROHANCE) injection 20 mL (COMPLETED) 20 mL, IntraVENous, IMG ONCE PRN, 1 dose, Starting on Mon10/19/21 at 1552, Until Mon10/19/21 at 1552, Other 1552 (Given - Provider: Dinorah Cruz) loperamide (IMODIUM) capsule 2 mg 2 mg, Oral, 4 TIMES DAILY PRN, Starting on Mon10/20/21 at 1046, Until Discontinued, Diarrhea, After each loose stool. 1215 (Given - Provid er: Clementine Cm RN) ondansetron (ZOFRAN) injection 4 mg(Linked Group 2) 4 mg, IntraVENous, EVERY 6 HOURS PRN, Starting on Mon10/19/21 at 1226, Until Discontinued, Nausea, Vomiting, Administer if oral route cannot be used. ondansetron (ZOFRAN-ODT) disintegrating tablet 4 mg(Linked Group 2) 4 mg, Oral, EVERY 8 HOURS PRN, Starting on Mon10/19/21 at 1226, Until Discontinued, Nausea, Vomiting polyethylene glycol (GLYCOLAX) packet 17 g 17 g, Oral, DAILY PRN, Starting on Mon10/19/21 at 1226, Until Discontinued, Constipation, First line therapy for constipation sodium chloride flush 0.9 % injection 10 mL 10 mL, IntraVENous, PRN, Starting on Mon10/19/21 at 1619, Until Discontinued, Line Care sodium chloride flush 0.9 % injection 5-40 mL 5-40 mL, IntraVENous, PRN, Starting on Mon10/19/21 at 1226, Until Discontinued, Line Care, After every IV line use, For Line Patency: Peripheral IV = 5 mL; Midline or Central Line = 10 mL/lumen. If following IV push medication, administer flush at same rate as the IV push. Flush volume is determined by type of infusion therapy being given. For non-viscous solutions use: Peripheral IV = 5 mL Midline or Central Line = 10 mL/lumen For viscous solutions (i.e. blood components, parenteral nutrition, contrast media, or after obtaining blood sample) use: Peripheral IV = 10 mL Midline or Central Line = 20 mL/lumen Linked Groups Order Group 1: acetaminophen (TYLENOL) tablet 1,000 mgJump to med 1,000 mg, Oral, EVERY 6 HOURS PRN, Starting on Mon10/19/21 at 2354, Until Discontinued, Pain Mild (1-3), Fever, For temp greater than 100.4 F (38 C)
Maximum dose of acetaminophen is 4000 mg from all sources in 24 hours.
Or acetaminophen (TYLENOL) suppository 650 mgJump to med 650 mg, Rectal, EVERY 6 HOURS PRN, Starting on Mon10/19/21 at 2354, Until Discontinued, Pain Mild (1-3), Fever, For temp greater than 100.4 F (38 C)
Administer if oral route cannot be used.
Group 2: ondansetron (ZOFRAN-ODT) disintegrating tablet 4 mgJump to med 4 mg, Oral, EVERY 8 HOURS PRN, Starting on Mon10/19/21 at 1226, Until Discontinued, Nausea, Vomiting Or ondansetron (ZOFRAN) injection 4 mgJump to med 4 mg, IntraVENous, EVERY 6 HOURS PRN, Starting on Mon10/19/21 at 1226, Until Discontinued, Nausea, Vomiting
Administer if oral route cannot be used.
INFORMATION SOURCE (unrecogn ized section and content) DATE CREATED AUTHOR 12/26/2020 [facility] DATE CREATED AUTHOR AUTHOR'S ORGANIZ ATION 10/25/2021 [facility] DATE CREATED AUTHOR AUTHOR'S ORGANIZ ATION 05/26/2022 [facility] DATE CREATED AUTHOR AUTHOR'S ORGANIZ ATION 08/02/2022 [facility] DATE CREATED AUTHOR AUTHOR'S ORGANIZ ATION 12/15/2022 [facility] DATE CREATED AUTHOR AUTHOR'S ORGANIZ ATION 01/17/2023 [facility] DATE CREATED AUTHOR AUTHOR'S ORGANKYLE ATION 01/28/2023 [facility] EPIC Ordered Prescriptions (unrec ognized section and content) Prescription Sig Dispensed Refills Start Date End Da te lamoTRIgine (LAMICTAL) 25 MG tablet Take 2 tablets by mouth daily 30 tablet 3 10/21/2021 Care Teams (unrecognized sec tion and content) [employer] Relationship Specialty Start Date End Date Angélica Arthur, [employer] - [employer] [address] [place] [address] PCP - General Nurse Practitioner 12/24/20 [employer] Relationship Specialty Start Date End Date Hoy, Maria Del Rosario M (Historical) PCP - General 05/21/13 [employer] Relationship Specialty Start Date End Date Hoy, Maria Del Rosario M (Historical) PCP - General 05/21/13 [employer] Relationship Specialty Start Date End Date Hoy, Maria Del Rosario M (Historical) PCP - General 05/21/13 [employer] Relationship Specialty Start Date End Date Hoy, Maria Del Rosario M (Historical) PCP - General 05/21/13 [employer] Relationship Specialty Start Date End Date Hoy, Maria Del Rosario M (Historical) PCP - General 05/21/13 [employer] Relationship Specialty Start Date End Date Hoy, Maria Del Rosario M (Historical) PCP - General 05/21/13 [employer] Relationship Specialty Start Date End Date Hoy, Maria Del Rosario M (Historical) PCP - General 05/21/13 [employer] Relationship Specialty Start Date End Date Hoy, Maria Del Rosario M (Historical) PCP - General 05/21/13 [employer] Relationship Specialty Start Date End Date Hoy, Maria Del Rosario M (Historical) PCP - General 05/21/13 [employer] Relationship Specialty Start Date End Date Hoy, Maria Del Rosario M (Historical) PCP - General 05/21/13 [employer] Relationship Specialty Start Date End Date Hoy, Maria Del Rosario M (Historical) PCP - General 05/21/13 [employer] Relationship Specialty Start Date End Date Hoy, Maria Del Rosario M (Historical) PCP - General 05/21/13 [employer] Relationship Specialty Start Date End Date Hoy, Maria Del Rosario M (Historical) PCP - General 05/21/13 [employer] Relationship Specialty Start Date End Date Hoy, Maria Del Rosario M (Historical) PCP - General 05/21/13 [employer] Relationship Specialty Start Date End Date Hoy, Maria Del Rosario M (Historical) PCP - General 05/21/13 [employer] Relationship Specialty Start Date End Date Hoy, Maria Del Rosario M (Historical) PCP - General 05/21/13 [employer] Relationship Specialty Start Date End Date Hoy, Maria Del Rosario M (Historical) PCP - General 05/21/13 [employer] Relationship Specialty Start Date End Date Hoy, Maria Del Rosario M (Historical) PCP - General 05/21/13 [employer] Relationship Specialty Start Date End Date Hoy, Maria Del Rosario M (Historical) PCP - General 05/21/13 [employer] Relationship Specialty Start Date End Date Hoy, Maria Del Rosario M (Historical) PCP - General 05/21/13 [employer] Relationship Specialty Start Date End Date Hoy, Maria Del Rosario M (Historical) PCP - General 05/21/13 [employer] Relationship Specialty Start Date End Date Hoy, Maria Del Rosario M (Historical) PCP - General 05/21/13 FOR RECORDS PERTAINING TO PATIENTS WHO ARE OR HAVE BEEN ENROLLED IN A CHEMICAL DEPENDENCY/SUBSTANCEABUSE PROGRAM, SOME INFORMATION MAY BE OMITTED. This clinical summary was aggregated from multiple sources. Caution should be exercised in using it in the provision of clinical care. This summary normalizes information from multiple sources, and as a consequence, information in this document may materially change the coding, format and clinical context of patient data. In addition, data may be omitted in some cases. CLINICAL DECISIONS SHOULD BE BASED ON THE PRIMARY CLINICAL RECORDS. [facility] [employer] [facility]. provides no warranty or guarantee of the accuracy or completeness of information in this document.
== END 2023-01-27 13:30 | disposition home or self-care (01) ==
LOC: ER 12:34 → MS 12:49
PROVIDERS: Nurse Practitioner; Admitting Provider Internal Medicine; Emergency Provider Emergency Medicine Emergency Medical Services; PCP Family Medicine; Visit Provider Internal Medicine
DX: J45.51 Severe persistent asthma with (acute) exacerbation (principal); R11.2 Nausea with vomiting, unspecified; E86.0 Dehydration; G89.18 Other acute postprocedural pain; R10.9 Unspecified abdominal pain; F31.70 Bipolar disorder, currently in remission, most recent episode unspecified; F41.9 Anxiety disorder, unspecified; K21.9 Gastro-esophageal reflux disease without esophagitis; G40.909 Epilepsy, unspecified, not intractable, without status epilepticus; Z79.899 Other long term (current) drug therapy; Z20.822 Contact with and (suspected) exposure to COVID-19; Z90.710 Acquired absence of both cervix and uterus; Z90.722 Acquired absence of ovaries, bilateral; Z90.79 Acquired absence of other genital organ(s); Z90.49 Acquired absence of other specified parts of digestive tract; Z98.891 History of uterine scar from previous surgery; Z98.890 Other specified postprocedural states; Z86.16 Personal history of COVID-19; Z87.01 Personal history of pneumonia (recurrent); Z87.442 Personal history of urinary calculi
CPT/HCPCS: 36415; 71045; 80048; 80053; 80175; 80178; 85025; 87635; 87798; 87804; 87811; 94640; 96361; 96365; 96372; 96375; 96376; 99285; G0378; J2920; J2930

== ENCOUNTER 2023-02-25 22:33 | Emergency (ER) | payer OTHER, SELFPAY ==
[2023-02-25 22:37] VITALS: BP 103/64; PULSE 110; RESP 20; TEMP 37.2; O2SAT 99; BMI 45.3
--- OUTSIDE RECORDS SUMMARY | 2023-02-25 22:40 | XMS_ITS | CCD ---
Author Name Unknown Address [address] [place] [address] Organization [facility] Care Team Providers Care Head Loft Worker Name Role Phone Maria Del Rosario Hahn (Historical) Primary Care Provide r Unavailable Sandhya LINER REROLL TENDER - THREAD SEPARATOR, Angélica Pamela Primary Care Provider SANDHYA ANGÉLICA Santiago Primary Care Unavailable VIELKA CHING Attending Unavailable Sandhya LINER REROLL TENDER - THREAD SEPARATOR, Angélica Pamela Primary Care Provider LUCILA MOTA Attending Unavailable LYNDSEY STEWART Referring [...] MANJINDER Admitting Unavailable PATRICIA WALSH Consulting Unavailable [facility] [place] GOMEZ Primary Care Unavailable HAY ., DR HARMAN Attending Unavailable HAY ., DR HARMAN Admitting Unavailable NEWSTEWART, NICHOLAS Consulting Unavailable UNLU, SINDY Consulting Unavailable LEONARDO ., DR GUTIERREZ Admitting Unavailable LEONARDO ., DR GUTIERREZ Consulting Unavailable [facility] Primary Care Unavailable LEONARDO ., DR GUTIERREZ Attending Unavailable KUNS, DR ANGÉLICA Santiago Primary Care Unavailable LEONARDO ., DR GUTIERREZ Admitting Unavailable LEONARDO ., DR GUTIERREZ Attending Unavailable LEONARDO ., DR GUTIERREZ Consulting Unavailable LEONARDO ., DR GUTIERREZ Admitting Unavailable LEONARDO ., DR GUTIERREZ Attending Unavailable NADERER, DR SPENSER Garcia Primary Care Unavailable [facility] Primary Care Unavailable HAY ., DR HARMAN [...] Unavailable MARIA DEL ROSARIO HAHN Referring Unavailable HOMARIA DEL ROSARIO Giles Referring Unavailable GREENLOGAN Attending Unavailable GREENLOGAN Attending Unavailable JEFFОЛЬГА GEE Attending Unavailable BIDDLECOMSUZAN Attending Unavailable GREEN, CAMERONI Referring Unavailable GREENLOGAN Attending Unavailable DAVID GOLDMAN Attending Unavailable DAVID GOLDMAN Admitting Unavailable MARKER, DINORAH ESCUDERO Referring Unavailable GREENLOGAN Attending Unavailable SAMPLES, JESSE Attending Unavailable MARIA DEL ROSARIO HAHN Referring Unavailable LEONARDOZAY MOSER Attending Unavailable LEONARDOZAY Attending Unavailable Ramsey Maloney Attending Unavailab le Ramsey Maloney Admitting Unavailab le NON STAFF Primary Care Unavailable Allergies Allergy Classification Reported Allergen(s) Allergy Type Date of Onset Reaction(s) Facility (20 sources) Azithromycin; Translations: [AZITHROMYCIN] Drug Allergy 1 Hives, Other: See Comments [facility] Ratio (2 sources) carBAMazepine Drug Allergy 1 Other (See Comments) [facility] (20 sources) Cephalexin; Translations: [CEPHALEXIN] Drug Allergy 1 Hives, Rash [facility] (20 sources) Metoclopramide; Translations: [METOCLOPRAMIDE] Drug Allergy 1 Hives, Intolerance [facility] (2 sources) Propranolol Drug Allergy 1 Hives, Other (See Comments) [facility] (20 sources) Adhesive Tape-Silicones; Translations: [ADHESIVE TAPE-SILICONES] Drug Allergy 2 Rash [facility] (20 sources) Dextromethorphan / Pyrilamine; Translations: [PYRILAMINE-DEXTROME THORPHAN] Drug Allergy 2 [facility] Work Phone: (20 sources) vortioxetine; Translations: [VORTIOXETINE] Drug Allergy 2 [facility] Work Phone: (17 sources) Dihydroergotamine; Translations: [DIHYDROERGOTAMINE] Drug Allergy 3 Intolerance [facility] (1 source) Azithromycin Drug Allergy [facility] (1 source) bee venom Drug allergy (disorder) [facility] (1 source) Cephalexin Drug Allergy [facility] (1 source) Desonide Drug Allergy [facility] (1 source) Iothalamate Drug Allergy [facility] (1 source) Propranolol Drug Allergy 1 [facility] (1 source) [place] [facility] Drug allergy (disorder) 2 [facility] (6 sources) levETIRAcetam; Translations: [LEVETIRACETAM] Drug Allergy 3 Itching [facility] Work Phone: Medications Current Medications Medication Drug [...] above: Take 1 tablet by sami th twice daily. ondansetron (ZOFRAN-ODT) disintegrating tablet 4 mg (1 source) Start: 10-19-2021 ondansetron (ZOFRAN-ODT) disintegrating tablet 4 mg Completed/Discontinued Medications Medication Drug Class(es) Dates Sig (Normalized) Sig (Original) baclofen 10 mg oral tablet (10 sources) gamma-Aminobutyric Acid-ergic Agonist Start: 2 baclofen (LIORESAL) 10 mg tablet onabotulinumtoxina 200 unt injection (7 sources) Acetylcholine Release Inhibitor Start: 3 onabotulinum toxin type A 200 Units injection (BOTOX) cariprazine 4.5 mg oral capsule (4 sources) Atypical Antipsychotic cariprazine (VRAYLAR) 4.5 mg capsule Vraylar 4.5 mg capsule 0 Active Comment on above: Vraylar 4.5 mg capsu le chlorzoxazone 500 mg oral tablet (6 sources) Muscle Relaxant Start: 3 End: 3 take 1 tablet by mouth three times [...] above: Take 1 tablet by sami th up to three times a day as needed, immediately at onset of headache for rescue. cyclobenzaprine hydrochloride 10 mg oral tablet (2 sources) Muscle Relaxant End: 2 take 1 tablet by mouth three times daily cyclobenzaprine (FLEXERIL) 10 MG tablet Take 10 mg by mouth 3 times daily 0 10/20/2021 Discontinued (Stop Taking at Discharge) diazePAM 10 mg oral tablet (20 sources) Benzodiazepine Start: diazePAM (VALIUM) 10 mg tablet take 1 [...] tablet (6 sources) Anti-epileptic Agent Start: 10-23-2021 gabapentin (NEURONTIN) 600 mg tablet End: 10-20-2021 gabapentin [...] sources) Nonsteroidal Anti-inflammatory Drug, Cyclooxygenase Inhibitor Start: 3 End: 3 take 1 tablet by mouth every six [...] Start: 10-21-2021 take 2 tablets by mo [facility] once daily lamoTRIgine (LAMICTAL) 25 MG tablet Take 2 tablets by mouth daily 30 tablet 3 10/21/2021 Active Start: 10-19-2021 lamoTRIgine (L AMICTAL) tablet 50 mg levETIRAcetam 250 mg oral tablet (3 sources) Start: 08-08-2022 levETIRAcetam (KEPPRA) 250 mg tablet Take 1 at bedtime. Can increase to bid after 2 weeks if needed 60 tablet 2 08/08/2022 Active Comment on above: Take 1 at bedtime. C an increase to bid after 2 weeks if needed lithium carbonate 300 mg oral tablet (17 sources) Start: 06-13-2022 lithium carbonate 300 mg tablet LORazepam 2 mg oral [...] Comment on above: [facility] 2.5 mg at onset [...] a day as needed. polyethylene glycol 3350 [id number] mg powder for oral solution (1 source) Osmotic Laxative Start: 10-19-2021 17 g, Oral, DAILY PRN, Starting on [...] as needed. Take 1 tablet by sami every 6 hours as needed. 5 ml sodium chloride 9 mg/ml injection (6 sources) Start: 10-19-2021 take 1 dose intravenously twice daily 5-40 mL, IntraVENous, EVERY 12 HOURS SCHEDULED (2 times per day), First dose on Mon10/19/21 at 2100, Until Discontinued For Line Patency: Peripheral IV = 5 mL; Midline or Central Line = 10 mL/lumen.&nbs p; If following IV push medication, administer flush at same rate as the IV push. Flush volume is determined by type of infusion therapy being given. &nbsp ;For non-viscous solutions use: Periphe ral IV = 5 mL Midline or Central Line = 10 mL/lumen &nb sp;For viscous solutions (i.e. blood components, parenteral nutrition, contrast media, or after obtaining blood sample) use: Periphe ral IV = 10 mL Midline or Central [...] oral tablet (17 sources) Start: 04-20-2022 vilazodone (VIIBRYD) 20 mg tablet ZOLMitriptan 5 mg/actuat nasal spray (17 sources) Serotonin-1b and Serotonin-1d Receptor Agonist Start: 06-24-2022 ZOLMitriptan (ZOMIG) 5 mg nasal spray Use 1 [place] in the nose as needed at onset of migraine headache. If symptoms persist or return, may repeat dose in other nostril after 2 hours. Maximum of 2 sprays per 24 hours 10 Each 2 06/24/2022 Active Start: 06-24-2022 take 1 spray(s) nasa l route every twenty-four hours as needed ZOLMitriptan (ZOMIG) 5 mg nasal spray Use 1 [place] in the nose as needed. SPRAY IN 1 NOSTRIL AT ONSET OF MIGRAINE HEADACHE. If symptoms persist or return, may repeat dose after 2 hours. Maximum: 5 mg/dose; 10 mg per 24 hours 10 Each 2 06/24/2022 Active Comment on above: Use 1 [place] in the n ose as needed. SPRAY IN 1 NOSTRIL AT ONSET OF MIGRAINE HEADACHE. If symptoms persist or return, may repeat dose after 2 hours. Maximum: 5 mg/dose; 10 mg per 24 hours Use 1 [place] in the n ose as needed at [...] 08-14-2021 Episodic Other aftercare (1 source) Other bistro server (current) drug therapy; Translations: [OTH HAND KISS SETTER CURRENT DRUG THERAPY] Onset: 06-22-2022 Episodic Other [...] Results Test Name Value Interpretation Reference Range Facility Veronica 12-13-2022 BASHIR Telephone ([facility]) ---- CONI NICHOLSON ([id number]) 1995 F Date Time Provider Department 12/13/22 LOGAN BARTH [facility] During your visit today, we recorded the [...] Rash KEPPRA (LEVETIRACETAM) 11/11/2022 9 - Itching PYRILAMINE-DEXTROME THORPHAN 01/07/2022 4 - Hives REGLAN (METOCLOPRAMIDE) 12/03/2021 5 - Intolerance VORTIOXETINE 08/06/2021 4 - Hives Date Reviewed: 12/12/2022 Reviewed by: Logan Barth APRN.THREAD SEPARATOR - Fully Assessed Prescriptions as of 12/13/2022 [...] (ZOMIG) 5 mg nasal spray Use 1 [place] in the nose as needed at onset of migraine headache. If symptoms persist or return, may repeat dose in other nostril after 2 hours. Maximum of 2 sprays per 24 hours - lamoTRIgine (LAMICTAL) 150 mg tablet - diazePAM (VALIUM) 10 mg tablet Facility-Administer ed Medications as of 12/13/2022 - onabotulinum toxin type A 200 Units injection (BOTOX) Problem List As Of Date 12/13/2022 Noted Resolved Seizure-like activity (HCC) [R56.9] 04/01/2022 Psychogenic nonepileptic seizure [F44.5] 10/20/2021 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 w*06/24/2022 Encounter Status:Closed by JANNETTE MCLEOD [facility] CONI [facility]ICHOL[facility] ([id number]) 1995 F Date Time Provider Department 12/13/22 LOGAN BARTH NITravis During your visit today, we recorded the following information about you: Mendoza Dooley 12/13/2022 2:27 PM Signed Called patient to schedule for 3 days of Non DHE IV infusions. She started she was currently driving and would call back to schedule Logan Barth APRN.THREAD SEPARATOR P Headache Infusion Scheduling Pool; P C21 [...] Rash KEPPRA (LEVETIRACETAM) 11/11/2022 9 - Itching PYRILAMINE-DEXTROME THORPHAN 01/07/2022 4 - Hives REGLAN (METOCLOPRAMIDE) 12/03/2021 5 - Intolerance VORTIOXETINE 08/06/2021 4 - Hives Date Reviewed: 12/12/2022 Reviewed by: Logan Barth APRN.THREAD SEPARATOR - Fully Assessed Reason for Visit: Infusion [...] (ZOMIG) 5 mg nasal spray Use 1 [place] in the nose as needed at onset of migraine headache. If symptoms persist or return, may repeat dose in other nostril after 2 hours. Maximum of 2 sprays per 24 hours - lamoTRIgine (LAMICTAL) 150 mg tablet - diazePAM (VALIUM) 10 mg tablet Facility-Administer ed Medications as of 12/13/2022 - onabotulinum toxin type A 200 Units injection (BOTOX) Problem List As Of Date 12/13/2022 Noted Resolved Seizure-like activity (HCC) [R56.9] 04/01/2022 Psychogenic nonepileptic seizure [F44.5] 10/20/2021 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 w*06/24/2022 Encounter Status:Closed by MENDOZA DOOLEY on 12/13/22 [facility] BASHIR Telephone (NIQ) ---- CONI NICHOLSON ([id number]) 1995 F Date Time Provider Department 11/10/22 [...] get infusions scheduled. Number to return call [phone] Okay to leave a message ? Yes Last office visit 10/12/22 with Fliiby Next office visit Not scheduled. Thank you calling [facility]. You will receive a return call within 48 hours ( or 2 business days if close to the weekend). If you feel that this is an urgent issue and needs immediate attention, it is recommended that you contact your primary care provider office or proceed to your nearest Urgent Care Center of Emergency Room ED for evaluation/treatmen Mendoza Rashid 11/10/2022 9:29 AM Signed PATIENT SCHEDULED FOR TRIAGE AND TENTATIVE INFUSION Allergies As of Date: 11/10/2022 Noted Allergy Reaction DIHYDROERGOTAMINE 07/27/2022 5 - Intolerance Comments: Chest tightness, numbness and tingling in bilateral extremities, increased anxiety ADHESIVE TAPE-SILICONES 12/03/2021 2 - Rash AZITHROMYCIN 12/03/2021 14 - Other: See Comments KEFLEX (CEPHALEXIN) 12/03/2021 2 - Rash PYRILAMINE-DEXTROME THORPHAN 01/07/2022 4 - Hives REGLAN (METOCLOPRAMIDE) 12/03/2021 5 - Intolerance VORTIOXETINE 08/06/2021 4 - Hives Date Reviewed: 10/12/2022 Reviewed by: Suzan Driver APRN.THREAD SEPARATOR - Fully Assessed Reason for Visit: Infusion [...] (ZOMIG) 5 mg nasal spray Use 1 [place] in the nose as needed at onset of migraine headache. If symptoms persist or return, may repeat dose in other nostril after 2 hours. Maximum of 2 sprays per 24 hours - lamoTRIgine (LAMICTAL) 150 mg tablet - diazePAM (VALIUM) 10 mg tablet Facility-Administer ed Medications as of 11/10/2022 - onabotulinum toxin type A 200 Units injection (BOTOX) Problem List As Of Date 11/10/2022 Noted Resolved Seizure-like activity (HCC) [R56.9] 04/01/2022 Psychogenic nonepileptic seizure [F44.5] 10/20/2021 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 w*06/24/2022 Encounter Status:Closed by MENDOZA DOOLEY on 11/10/22 [facility] ARMANIOVshira 10-12-2022 CNOV Office Visit ([facility]) ---- CONI NICHOLSON ([id number]) 1995 F Date Time Provider Department 10/12/22 10:15 AM SUZAN DRIVER [facility] During your visit today, we recorded the following information about you: Pulse Blood pressure Weight Height 91/minute 133/63 108.8 kg 1.549 m Suzan Driver APRN.THREAD SEPARATOR 10/12/2022 11:03 AM Addendum AFTER VISIT CARE [...] maximize the effectiveness of your pain relief. https://my.[facility].org/health/ treatments/8312-bot drqllp-nzhnu-rwvpkh ions Download the Chronic Migraine Anatomy Andrzej (by [employer]) to learn more about botox. -HYDRATION Hydration [...] and see if you qualify for reimbursement. https://www.botoxsa [employer]/ Return in 3 months for your next [...] machinery while taking this medication. Suzan Driver APRN.THREAD SEPARATOR 10/12/2022 11:04 AM Signed New Onabotulinum Toxin [...] PREEMPT Botox. There is no documented allergic reaction/hypersensi tivity to any botulinum toxin and there is [...] indicate better HRQL 06/24/2022 08/08/2022 09/12/2022 Role Function-Restrictiv e Transformed Score (range: 0-100) 0 0 0 Role Function-Preventive Transformed Score (range: 0-100) 0 20 0 Emotional Function Transformed Score (range: 0-100) 0 40 0 PHQ-9 06/24/2022more content not included)... Normal [facility] CNPNon 09-29-2022 CNPN Telephone ([facility]) ---- CONI NICHOLSON ([id number]) 1995 F Date Time Provider Department 09/29/22 ANGELY COTTON [facility] During your visit today, we recorded the following information about you: Angely Cotton RN 09/29/2022 11:55 AM Signed [facility] received prescription(s) for Zomig 5MG nasal spray . Benefits investigation was conducted, indicating that a prior authorization is required. PA was initiated and pending review through [employer]. All pertinent clinical information was submitted to insurance. CMM Cohen: [id number] Ordering Provider: Logan Barth APRN.THREAD SEPARATOR Angely Cotton RN [facility] P: , F: Angely Cotton RN 10/07/2022 3:17 PM Signed Ambulatory Pharmacy Prior Authorization Note Provider Intervention Required?: No- Pharmacy completed on your behalf. Rx Plan: Medicaid [facility]CO ([facility]) Drug: Zomig 5MG nasal spray Cover My Meds Cohen: [id number] Determination: Approved Prior Authorization/Case #: n/a Prior [...] refills. Prescriptions will now be processed through [facility] for determination of next steps. For questions relating to this submission, please contact [facility] at [phone] Allergies As of Date: 09/29/2022 Noted Allergy Reaction DIHYDROERGOTAMINE 07/27/2022 5 - Intolerance Comments: Chest tightness, numbness and tingling in bilateral extremities, increased anxiety ADHESIVE TAPE-SILICONES 12/03/2021 2 - Rash AZITHROMYCIN 12/03/2021 14 - Other: See Comments KEFLEX (CEPHALEXIN) 12/03/2021 2 - Rash PYRILAMINE-DEXTROME THORPHAN 01/07/2022 4 - Hives REGLAN (METOCLOPRAMIDE) 12/03/2021 5 - Intolerance VORTIOXETINE 08/06/2021 4 - Hives Date Reviewed: 09/12/2022 Reviewed by: Logan Barth APRN.THREAD SEPARATOR - Fully Assessed Reason for Visit: Insurance Authorization [[id number]] Cmt: Zomig 5MG nasal spray Prescriptions as [...] (ZOMIG) 5 mg nasal spray Use 1 [place] in the nose as needed at onset [...] Encounter Status:Closed by ANGELY COTTON on 10/07/22 [facility] 09-13-2022 [facility] Telephone ([facility]) ---- CONI NICHOLSON ([id number]) 1995 F Date Time Provider Department 09/13/22 LOGAN BARTH [facility] During your visit today, we [...] Comments KEFLEX (CEPHALEXIN) 12/03/2021 2 - Rash PYRILAMINE-DEXTROME THORPHAN 01/07/2022 4 - Hives REGLAN (METOCLOPRAMIDE) 12/03/2021 5 - Intolerance VORTIOXETINE 08/06/2021 4 - Hives Date Reviewed: 09/12/2022 Reviewed by: Logan Barth APRN.THREAD SEPARATOR - Fully Assessed Reason for Visit: Referral [...] (ZOMIG) 5 mg nasal spray Use 1 [place] in the nose as needed. SPRAY IN [...] Encounter Status:Closed by ENEDINA TSAI on 09/13/22 [facility] CNCOon 09-08-2022 CNCO Letter Text [facility] CNPNon [facility] ---- CONI NICHOLSON ([id number]) 1995 F Date Time Provider Department 07/05/22 ANGELY COTTON [facility] During your visit today, we recorded the following information about you: Angely Cotton RN 07/05/2022 1:18 PM Signed [facility] received prescription(s) for Emgality 120MG/ML auto-injectors (migraine) . Benefits investigation was conducted, indicating that a prior authorization is required. PA was initiated and pending review through [employer]. All pertinent clinical information was submitted to insurance. CMM Cohen: [id number] Ordering Provider: GABBI Johnston Alisha, RN [facility] P: , F: Angely Cotton RN 07/11/2022 12:55 PM Signed Ambulatory Pharmacy Prior Authorization Note Provider Intervention Required?: No- Pharmacy completed on your behalf. Rx Plan: Medicaid [facility]CO ([facility]) Drug: Emgality 120MG/ML auto-injectors (migraine) Cover My Meds Cohen: [id number] Determination: Denied PA Denied because: Step therapy requirement Prior Authorization/Case #: n/a Prior Authorization Expiration: n/a Time to PA Submission in CMM: 15 min Time to PA Determination in CMM: 1 day Additional Information: Full letter scanned into chart for reference, please review letter for full details. No further action by [facility] for now and existing order to be profiled. Angely Cotton RN [facility] P: , F: For questions relating to this submission, please contact [facility] at [phone] Logan Barth APRN.CNP 07/20/2022 12:44 PM Signed She will have follow up visit after infusions, will discuss alternative treatment options at visit. GABBI Johnston [place] 08/29/2022 12:12 PM Signed Patient saw Dr. Borrego 08/08/2022, are we able to use these notes to appeal? Tamiko Riggs RN 08/30/2022 11:[address] Borrego' notes have no information or info needed [...] Recall letter placed. Uploaded to chart via [employer]. PLEASE SEND NEW RX TO PHARMACY FOR [...] Comments KEFLEX (CEPHALEXIN) 12/03/2021 2 - Rash PYRILAMINE-DEXTROME THORPHAN 01/07/2022 4 - Hives REGLAN (METOCLOPRAMIDE) 12/03/2021 5 - Intolerance VORTIOXETINE 08/06/2021 4 - Hives Date Reviewed: 06/24/2022 Reviewed by: Logan Barth APRN.THREAD SEPARATOR - Fully Assessed Reason for Visit: Insurance Authorization [[id number]] Cmt: Emgality 120MG/ML auto-injectors (migraine) Order(s):Order #: [id number] Order #: [id number] Prescriptions as of 09/27/2022 - galcanezumab-gnlm (EMGALITY [...] - prometh (more content not included)... Normal [facility] Veronica 06-27-2022 BASHIR Telephone (NIQ) ---- MARGARET NICHOLSON ([id number]) 1995 F Date Time Provider Department 06/27/22 LOGAN BARTH During your visit today, we recorded the following information about you: Mendoza Dooley 06/27/2022 3:00 PM Signed Spoke to patient about scheduling infusions. Patient would like to callback once she can figure out transportation. GABBI Johnston Headache Infusion Scheduling Pool Please sched for infusions - therapy plan placed. GABBI Johnston 06/29/2022 11:55 AM Signed Patient is scheduled for 3 days of IV Infusions. Allergies As of Date: 06/27/2022 Noted Allergy Reaction ADHESIVE TAPE-SILICONES 12/03/2021 2 - Rash AZITHROMYCIN 12/03/2021 14 - Other: See Comments KEFLEX (CEPHALEXIN) 12/03/2021 2 - Rash PYRILAMINE-DEXTROME THORPHAN 01/07/2022 4 - Hives REGLAN (METOCLOPRAMIDE) 12/03/2021 5 - Intolerance VORTIOXETINE 08/06/2021 4 - Hives Date Reviewed: 06/24/2022 Reviewed by: Logan Barth APRN.THREAD SEPARATOR - Fully Assessed Reason for Visit: Appointment [...] (ZOMIG) 5 mg nasal spray Use 1 [place] in the nose as needed. SPRAY IN [...] Status:Closed by MENDOZA DOOLEY on 06/27/22 Normal [facility] BLOOD GASES BTYon 06-20-2022 02 MODE ROOM AIR Normal [facility] Comment on above: Performed By: #### B MP #### [facility] [address] [address] [address] Ibis Jimenez ALLENS TEST Positive [facility] Comment on above: Performed By: #### B MP #### [facility] [address] [address] [address] Ibis Jimenez Base excess Calc (Bld) [Moles/Vol] -1.6000 mmol/L Normal -2.0-2.0 [facility] Comment on above: Performed By: #### B MP #### [facility] [address] [address] [address] Ibis Jimenez BIPAP PRESSURE [facility] Comment on above: Performed By: #### B MP #### [facility] [address] [address] [address] Ibis Jimenez CPAP [facility] Comment on above: Performed By: #### B MP #### [facility] [address] [address] [address] Ibis Jimenez FIO2 [facility] Comment on above: Performed By: #### B MP #### [facility] [address] [address] [address] Ibis Jimenez HCO3 (Bld) [Moles/Vol] 23.8 mmol/L Normal 22.0-26.0 [facility] Comment on above: Performed By: #### B MP #### [facility] [address] [address] [address] Ibis Jimenez LPM [facility] Comment on above: Performed By: #### B MP #### [facility] [address] [address] [address] Ibis Jimenez MINUTE VOLUME Normal [facility] Comment on above: Performed By: #### B MP #### [facility] [address] [place] [address] Dr. Ibis Jimenez Oxygen (Bld) [Partial pressure] 75.5 mm[Hg] Critically low 80.0-100.0 [facility] Comment on above: Performed By: #### B MP #### [facility] [address] [address] [address] Ibis Jimenez Oxygen saturation in Blood 95.8 % Normal 95.0-100.0 [facility] Comment on above: Performed By: #### B MP #### [facility] [address] [address] [address] Ibis Jimenez PCO2 41.8 mmHg Normal 35.0-45.0 [facility] Comment on above: Performed By: #### B MP #### [facility] [address] [place] [address] Dr. Ibis Jimenez PEEP [facility] Comment on above: Performed By: #### B MP #### [facility] [address] [place] [address] Dr. Ibis Jimenez pH (Bld) 7.363 [pH] Normal 7.350-7.450 [facility] Comment on above: Performed By: #### B MP #### [facility] [address] [place] [address] [facility] Comment on above: Performed By: #### B MP #### [facility] [address] [place] [address] Dr. Ibis Jimenez PS [facility] Comment on above: Performed By: #### B MP #### [facility] [address] [place] [address] Dr. Ibis Jimenez PUNCTURE SITE LR [facility] Comment on above: Performed By: #### B MP #### [facility] [address] [place] [address] Dr. Ibis Jimenez RATE [facility] Comment on above: Performed By: #### B MP #### [facility] [address] [place] [address] Dr. Ibis Jimenez VENT MODE [facility] Comment on above: Performed By: #### B MP #### [facility] [address] [place] [address] Dr. Ibis Jimenez [facility] Comment on above: Performed By: #### B MP #### [facility] [address] [place] [address] Dr. Ibis Jimenez CBC AUTO DIFFon 06-20-2022 BASO # 0.0 103/ul Normal 0.0-0.1 [facility] Comment on above: Performed By: #### A CET, SALYC #### [facility] [address] [place] [address] Dr. Ibis Jimenez Basophils/100 WBC (Bld) 0.5 % Normal 0.2-2.0 [facility] Comment on above: Performed By: #### A CET, SALYC #### [facility] [address] [place] [address] Dr. Ibis Jimenez EO # 0.3 103/ul Normal 0.0-0.7 [facility] Comment on above: Performed By: #### A CET, SALYC #### [facility] [address] [place] [address] Dr. Ibis Jimenez Eosinophils/100 WBC (Bld) 4.2 % Normal 0.9-7.0 [facility] Comment on above: Performed By: #### A CET, SALYC #### [facility] [address] [place] [address] Dr. Ibis Jimenez Erythrocyte distribution width (RBC) [Ratio] 13.2 % Normal 11.0-15.0 [facility] Comment on above: Performed By: #### A CET, SALYC #### [facility] [address] [place] [address] Dr. Ibis Jimenez Hematocrit (Bld) [Volume fraction] 36.5 % Normal 36.0-48.0 [facility] Comment on above: Performed By: #### A CET, SALYC #### [facility] [address] [place] [address] Dr. Ibis Jimenez Hemoglobin (Bld) [Mass/Vol] 11.7 g/dL Critically low 12.0-16.0 [facility] Comment on above: Performed By: #### A CET, SALYC #### [facility] [address] [place] [address] Dr. Ibis Jimenez IG # 0.05 10e3/ul Critically high 0.00-0.03 [facility] Comment on above: Performed By: #### A CET, SALYC #### [facility] [address] [place] [address] Dr. Ibis Jimenez IG % 0.8 % Critically high 0.0-0.5 [facility] Comment on above: Performed By: #### A CET, SALYC #### [facility] [address] [place] [address] Dr. Ibis Jimenez LYMPH # 1.7 103/ul Normal 1.2-3.8 [facility] Comment on above: Performed By: #### A CET, SALYC #### [facility] [address] [place] [address] Dr. Ibis Jimenez Lymphocytes/100 WBC (Bld) 26.9 % Normal 20.5-60.0 [facility] Comment on above: Performed By: #### A CET, SALYC #### [facility] [address] [place] [address] Dr. Ibis Jimenez MANUAL DIFF REQ NO Normal [facility] Comment on above: Performed By: #### A CET, SALYC #### [facility] [address] [place] [address] Dr. Ibis Jimenez MCH (RBC) [Entitic mass] 28.7 pg Normal 26.7-34.0 [facility] Comment on above: Performed By: #### A CET, SALYC #### [facility] [address] [place] [address] Dr. Ibis Jimenez MCHC (RBC) [Mass/Vol] 32.1 g/dL Normal 29.9-35.2 [facility] Comment on above: Performed By: #### A CET, SALYC #### [facility] [address] [place] [address] Dr. Ibis Jimenez MCV (RBC) [Entitic vol] 89.7 fL Normal 81.0-99.0 [facility] Comment on above: Performed By: #### A CET, SALYC #### [facility] [address] [place] [address] Dr. Ibis Jimenez MONO # 0.6 103/ul Normal 0.3-0.8 [facility] Comment on above: Performed By: #### A CET, SALYC #### [facility] [address] [place] [address] Dr. Ibis Jimenez Monocytes/100 WBC (Bld) 8.9 % Normal 1.7-12.0 [facility] Comment on above: Performed By: #### A CET, SALYC #### [facility] [address] [place] [address] Dr. Ibis Jimenez NEUT # 3.8 103/ul Normal 1.4-6.5 [facility] Comment on above: Performed By: #### A CET, SALYC #### [facility] [address] [place] [address] Dr. Ibis Jimenez Neutrophils/100 WBC (Bld) 58.7 % Normal 43.0-75.0 [facility] Comment on above: Performed By: #### A CET, SALYC #### [facility] [address] [place] [address] Dr. Ibis Jimenez Platelet mean volume (Bld) [Entitic vol] 9.3 fL Critically low 9.5-13.5 [facility] Comment on above: Performed By: #### A CET, SALYC #### [facility] [address] [place] [address] Dr. Ibis Jimenez PLT 188 103/ul Normal 150-450 [facility] Comment on above: Performed By: #### A CET, SALYC #### [facility] [address] [place] [address] Dr. Ibis Jimenez RBC 4.07 106/ul Critically low 4.20-5.40 [facility] Comment on above: Performed By: #### A CET, SALYC #### [facility] [address] [place] [address] Dr. Ibis Jimenez WBC 6.4 103/ul Normal 4.0-11.0 [facility] Comment on above: Performed By: #### A CET, SALYC #### [facility] [address] [place] [address] Dr. Ibis Jimenez DRUG SCREEN RAPID (URINE)on 06-20-2022 AMP Negative Normal NEGATIVE [facility] Comment on above: Performed By: #### B MP #### [facility] [address] [place] [address] Dr. Ibis Jimenez BAR Positive Abnormal NEGATIVE [facility] Comment on above: Performed By: #### B MP #### [facility] [address] [place] [address] Dr. Ibis Jimenez BUP Negative Normal NEGATIVE [facility] Comment on above: Performed By: #### B MP #### [facility] [address] [place] [address] Dr. Ibis Jimenez BZO Positive Abnormal NEGATIVE [facility] Comment on above: Performed By: #### B MP #### [facility] [address] [place] [address] Dr. Ibis Jimenez SEMAJ Negative Normal NEGATIVE [facility] Comment on above: Performed By: #### B MP #### [facility] [address] [place] [address] Dr. Ibis Jimenez CUT-OFFS SEE BELOW Normal [facility] Comment on above: Result Comment: AMP (Amphetamine): 500ng/mL, BAR (Barbituates): 200 ng/mL, BZO (Benzodiazepines): 150 ng/mL, BUP (Buprenorphine): 10 ng/mL, SEMAJ (Cocaine): 150 ng/mL, mAMP (Methamphetamine): 500 ng/mL, MTD (Methadone): 200 ng/mL, OPI (Opiates): 100 ng/mL, OXY (Oxycodone): 100 ng/mL, PCP (Phencyclidine): 25 ng/mL, PPX (Propoxyphene): 300 ng/mL, THC (Cannabinoids): 50 ng/mL, TCA (Trycyclic Antidepressants): 300 ng/mL Performed By: #### B MP #### [facility] [address] [place] [address] Dr. Ibis Jimenez DRUG CUT HEADER DRUG CLASS TEST SYSTEM CUT-OFF CONCENTRATIONS ARE FOLLOWS: Normal [facility] Comment on above: Performed By: #### B MP #### [facility] [address] [place] [address] Dr. Ibis Jimenez mAMP Negative Normal NEGATIVE [facility] Comment on above: Performed By: #### B MP #### [facility] [address] [address] [address] Ibis Jimenez MTD Negative Normal NEGATIVE [facility] Comment on above: Performed By: #### B MP #### [facility] [address] [place] [address] Dr. Ibis Jimenez OPI Negative Normal NEGATIVE [facility] Comment on above: Performed By: #### B MP #### [facility] [address] [place] [address] Dr. Ibis Jimenez OXY Negative Normal NEGATIVE [facility] Comment on above: Performed By: #### B MP #### [facility] [address] [place] [address] Dr. Ibis Jimenez PCP Negative Normal NEGATIVE [facility] Comment on above: Performed By: #### B MP #### [facility] [address] [place] [address] Dr. Ibis Jimenez PPX Negative Normal NEGATIVE [facility] Comment on above: Performed By: #### B MP #### [facility] [address] [place] [address] Dr. Ibis Jimenez TCA Positive Abnormal NEGATIVE [facility] Comment on above: Performed By: #### B MP #### [facility] [address] [place] [address] Dr. Ibis Jimenez THC Positive Abnormal NEGATIVE [facility] Comment on above: Performed By: #### B MP #### [facility] [address] [place] [address] Dr. Ibis Jimenez ER URINE PROFILEon 3 Bilirubin Ql (U) Negative Normal NEGATIVE [facility] Comment on above: Performed By: #### A CET, SALYC #### [facility] [address] [place] [address] Dr. Ibis Jimenez Clarity (U) CLEAR Normal CLEAR [facility] Comment on above: Performed By: #### A CET, SALYC #### [facility] [address] [place] [address] Dr. Ibis Jimenez Color (U) YELLOW Normal YELLOW [facility] Comment on above: Performed By: #### A CET, SALYC #### [facility] [address] [place] [address] Dr. Ibis Garcia micrscopic examination will be performed if indicated. Normal [facility] Comment on above: Performed By: #### A CET, SALYC #### [facility] [address] [place] [address] Dr. Ibis Jimenez Glucose Ql (U) Negative Normal NEGATIVE [facility] Comment on above: Performed By: #### A CET, SALYC #### [facility] [address] [place] [address] Dr. Ibis Jimenez Hemoglobin Ql (U) Negative Normal NEGATIVE [facility] Comment on above: Performed By: #### A CET, SALYC #### [facility] [address] [place] [address] Dr. Ibis Jimenez Ketones Ql (U) Negative Normal NEGATIVE [facility] Comment on above: Performed By: #### A CET, SALYC #### [facility] [address] [place] [address] Dr. Ibis Jimenez LEUKOCYTES Negative Normal NEGATIVE [facility] Comment on above: Performed By: #### A CET, SALYC #### [facility] [address] [place] [address] Dr. Ibis Jimenez Nitrite Ql (U) Negative Normal NEGATIVE [facility] Comment on above: Performed By: #### A CET, SALYC #### [facility] [address] [place] [address] Dr. Ibis Jimenez pH (U) 5.0 [pH] Normal 5-9 [facility] Comment on above: Performed By: #### A CET, SALYC #### [facility] [address] [place] [address] Dr. Ibis Jimenez SPEC GRAVITY >=1.030 Abnormal 1.005-<=1.02 5 [facility] Comment on above: Performed By: #### A CET, SALYC #### [facility] [address] [address] [address] Ibis Jimenez UA PROTEIN Negative Normal NEGATIVE/ TRACE [facility] Comment on above: Performed By: #### A CET, SALYC #### [facility] [address] [place] [address] Dr. Ibis Jimenez UR MICRO IND NOT INDICATED Normal [facility] Comment on above: Performed By: #### A CET, SALYC #### [facility] [address] [place] [address] Dr. Ibis Jimenez Urobilinogen Qn (U) 0.2 {Dinorah'U}/dL Normal 0.2 - 1. 0 [facility] Comment on above: Performed By: #### A CET, SALYC #### [facility] [address] [place] [address] Dr. Ibis Jimenez PROF CHEM 8 (BAS METB)on Anion gap [Moles/Vol] 13.1 mmol/L Normal [facility] Comment on above: Performed By: #### M DAVID #### [facility] [address] [place] [address] Dr. Ibis Jimenez Calcium [Mass/Vol] 8.3 mg/dL Critically low 8.5-10.1 [facility] Comment on above: Performed By: #### M DAVID #### [facility] [address] [place] [address] Dr. Ibis Jimenez Chloride [Moles/Vol] 109 mmol/L Critically high 98-107 [facility] Comment on above: Performed By: #### M DAVID #### [facility] [address] [place] [address] Dr. Ibis Jimenez CO2 [Moles/Vol] 25.7 mmol/L Normal 21.0-32.0 [facility] Comment on above: Performed By: #### M DAVID #### [facility] [address] [place] [address] Dr. Ibis Jimenez Creatinine [Mass/Vol] 0.82 mg/dL Normal 0.55-1.02 [facility] Comment on above: Performed By: #### M DAVID #### [facility] [address] [address] [address] Ibis Jimeenz EGFR-AF BARBADIAN >60 Normal >=60 [facility] Comment on above: Performed By: #### M DAVID #### [facility] [address] [address] [address] Ibis Jimenez EGFR-NON AF BARBADIAN >60 Normal >=60 [facility] Comment on above: Performed By: #### M DAVID #### [facility] [address] [address] [address] Ibis Jimenez Glucose [Mass/Vol] 95 mg/dL Normal 74-106 [facility] Comment on above: Performed By: #### M DAVID #### [facility] [address] [address] [address] Ibis Jimenez Potassium [Moles/Vol] 3.8 mmol/L Normal 3.5-5.1 [facility] Comment on above: Performed By: #### M DAVID #### [facility] [address] [address] [address] Ibis Jimenez Sodium [Moles/Vol] 144 mmol/L Normal 136-145 [facility] Comment on above: Performed By: #### M DAVID #### [facility] [address] [address] [address] Ibis Jimenez Urea nitrogen [Mass/Vol] 16.0 mg/dL Normal 7.0-18.0 [facility] Comment on above: Performed By: #### M DAVID #### [facility] [address] [address] [address] Ibis Jimenez Urea nitrogen/Creatinine [Mass ratio] 19.5 mg/mg Normal [facility] Comment on above: Performed By: #### M DAVID #### [facility] [address] [address] [address] Ibis Jimenez ACETAMINOPHENon 06-19-2022 Acetaminophen [Mass/Vol] ug/mL Critically low 10.0-30.0 [facility] Comment on above: Performed By: #### A KORI DAVIS #### [facility] [address] [address] [address] Ibis Jimenez DRUG SCREEN RAPID (URINE)on 06-19-2022 AMP Negative Normal NEGATIVE [facility] Comment on above: Performed By: #### M DAVID #### [facility] [address] [address] [address] Ibis Jimenez BAR Positive Abnormal NEGATIVE [facility] Comment on above: Performed By: #### M DAVID #### [facility] [address] [address] [address] Ibis Jimenez BUP Negative Normal NEGATIVE [facility] Comment on above: Performed By: #### M DAVID #### [facility] [address] [place] [address] Dr. Ibis Jimenez BZO Positive Abnormal NEGATIVE [facility] Comment on above: Performed By: #### M DAVID #### [facility] [address] [place] [address] Dr. Ibis Jimenez SEMAJ Negative Normal NEGATIVE [facility] Comment on above: Performed By: #### M DAVID #### [facility] [address] [address] [address] Ibis Jimenez CUT-OFFS SEE BELOW Normal [facility] Comment on above: Result Comment: AMP (Amphetamine): 500ng/mL, BAR (Barbituates): 200 ng/mL, BZO (Benzodiazepines): 150 ng/mL, BUP (Buprenorphine): 10 ng/mL, SEMAJ (Cocaine): 150 ng/mL, mAMP (Methamphetamine): 500 ng/mL, MTD (Methadone): 200 ng/mL, OPI (Opiates): 100 ng/mL, OXY (Oxycodone): 100 ng/mL, PCP (Phencyclidine): 25 ng/mL, PPX (Propoxyphene): 300 ng/mL, THC (Cannabinoids): 50 ng/mL, TCA (Trycyclic Antidepressants): 300 ng/mL Performed By: #### M DAVID #### [facility] [address] [place] [address] Dr. Ibis Jimenez DRUG CUT HEADER DRUG CLASS TEST SYSTEM CUT-OFF CONCENTRATIONS ARE FOLLOWS: Normal [facility] Comment on above: Performed By: #### M DAVID #### [facility] [address] [address] [address] Ibis Jimenez mAMP Negative Normal NEGATIVE [facility] Comment on above: Performed By: #### M DAVID #### [facility] [address] [address] [address] Ibis Jimenez MTD Negative Normal NEGATIVE [facility] Comment on above: Performed By: #### M DAVID #### [facility] [address] [address] [address] Ibis Jimenez OPI Positive Abnormal NEGATIVE [facility] Comment on above: Performed By: #### M DAVID #### [facility] [address] [address] [address] Ibis Jimenez OXY Negative Normal NEGATIVE [facility] Comment on above: Performed By: #### M DAVID #### [facility] [address] [address] [address] Ibis Jimenez PCP Negative Normal NEGATIVE [facility] Comment on above: Performed By: #### M DAVID #### [facility] [address] [address] [address] Ibis Jimenez PPX Negative Normal NEGATIVE [facility] Comment on above: Performed By: #### M DAVID #### [facility] [address] [address] [address] Ibis Jimenez TCA Negative Normal NEGATIVE [facility] Comment on above: Performed By: #### M DAVID #### [facility] [address] [address] [address] Ibis Jimenez THC Positive Abnormal NEGATIVE [facility] Comment on above: Performed By: #### M DAVID #### [facility] [address] [address] [address] Ibis Jimenez ER URINE PROFILEon 3 Bilirubin Ql (U) Negative Normal NEGATIVE [facility] Comment on above: Performed By: #### M DAVID #### [facility] [address] [place] [address] Dr. Ibis Jimenez Clarity (U) CLEAR Normal CLEAR [facility] Comment on above: Performed By: #### M DAVID #### [facility] [address] [address] [address] Ibis Jimenez Color (U) YELLOW Normal YELLOW [facility] Comment on above: Performed By: #### M DAVID #### [facility] [address] [place] [address] Dr. Ibis Jimenez ERUAHD A micrscopic examination will be performed if indicated. Normal [facility] Comment on above: Performed By: #### M DAVID #### [facility] [address] [address] [address] Ibis Jimenez Glucose Ql (U) Negative Normal NEGATIVE [facility] Comment on above: Performed By: #### M DAVID #### [facility] [address] [place] [address] Dr. Ibis Jimenez Hemoglobin Ql (U) TRACE-INTACT Abnormal NEGATIVE [facility] Comment on above: Performed By: #### M DAVID #### [facility] [address] [place] [address] Dr. Ibis Jimenez Ketones Ql (U) Negative Normal NEGATIVE [facility] Comment on above: Performed By: #### M DAVID #### [facility] [address] [place] [address] Dr. Ibis Jimenez LEUKOCYTES Negative Normal NEGATIVE [facility] Comment on above: Performed By: #### M DAVID #### [facility] [address] [place] [address] Dr. Ibis Jimenez Nitrite Ql (U) Negative Normal NEGATIVE [facility] Comment on above: Performed By: #### M DAVID #### [facility] [address] [place] [address] Dr. Ibis Jimenez pH (U) 6.0 [pH] Normal 5-9 [facility] Comment on above: Performed By: #### M DAVID #### [facility] [address] [place] [address] Dr. Ibis Jimenez Protein (U) [Mass/Vol] 30 mg/dL Abnormal NEGAT ADALGISA/ TRACE [facility] Comment on above: Performed By: #### M DAVID #### [facility] [address] [address] [address] Ibis Jimenez SPEC GRAVITY 1.025 Normal 1.005-<=1.02 5 [facility] Comment on above: Performed By: #### M DAVID #### [facility] [address] [address] [address] Ibis Jimenez UR MICRO IND INDICATED Normal [facility] Comment on above: Performed By: #### M DAVID #### [facility] [address] [address] [address] Ibis Jimenez Urobilinogen Qn (U) 0.2 {Dinorah'U}/dL Normal 0.2 - 1. 0 [facility] Comment on above: Performed By: #### M DAVID #### [facility] [address] [place] [address] Dr. Ibis Jimenez ETHANOL (BLD ALC)on 06-20-19 23 ALC NOTE NOTE: 80 mg/dl is the legal limit for a blood alcohol level Normal [facility] Comment on above: Performed By: #### A MM #### [facility] [address] [place] [address] Dr. Ibis Jimenez Ethanol [Mass/Vol] mg/dL Normal [facility] Comment on above: Performed By: #### A MM #### [facility] [address] [place] [address] Dr. Ibis Jimenez POINT OF CARE GLUCOSEon 05-23 Glucose [Mass/Vol] 88 mg/dL Normal 74-106 [facility] Comment on above: Performed By: #### C VDTBH #### [facility] [address] [address] [address] Ibis Jimenez URon 06-19-2022 , QUAL Negative Normal NEGATIVE [facility] Comment on above: Performed By: #### M DAVID #### [facility] [address] [place] [address] Dr. Ibis Jimenez PROF CHEM 8 (BAS METB)on Anion gap [Moles/Vol] 12.6 mmol/L Normal [facility] Comment on above: Performed By: #### A MM #### [facility] [address] [place] [address] Dr. Ibis Jimenez Calcium [Mass/Vol] 8.4 mg/dL Critically low 8.5-10.1 [facility] Comment on above: Performed By: #### A MM #### [facility] [address] [place] [address] Dr. Ibis Jimenez Chloride [Moles/Vol] 107 mmol/L Normal 98-107 [facility] Comment on above: Performed By: #### A MM #### [facility] [address] [place] [address] Dr. Ibis Jimenez CO2 [Moles/Vol] 22.5 mmol/L Normal 21.0-32.0 [facility] Comment on above: Performed By: #### A MM #### [facility] [address] [place] [address] Dr. Ibis Jimenez Creatinine [Mass/Vol] 0.82 mg/dL Normal 0.55-1.02 [facility] Comment on above: Performed By: #### A MM #### [facility] [address] [place] [address] Dr. Ibis Jimenez EGFR-AF BARBADIAN >60 Normal >=60 [facility] Comment on above: Performed By: #### A MM #### [facility] [address] [place] [address] Dr. Ibis Jimenez EGFR-NON AF BARBADIAN >60 Normal >=60 [facility] Comment on above: Performed By: #### A MM #### [facility] [address] [place] [address] Dr. Ibis Jimenez Glucose [Mass/Vol] 87 mg/dL Normal 74-106 [facility] Comment on above: Performed By: #### A MM #### [facility] [address] [place] [address] Dr. Ibis Jimenez Potassium [Moles/Vol] 4.1 mmol/L Normal 3.5-5.1 [facility] Comment on above: Performed By: #### A MM #### [facility] [address] [address] [address] Ibis Jimenez Sodium [Moles/Vol] 138 mmol/L Normal 136-145 [facility] Comment on above: Performed By: #### A MM #### [facility] [address] [place] [address] Dr. Ibis Jimenez Urea nitrogen [Mass/Vol] 22.0 mg/dL Critically high 7.0-18.0 [facility] Comment on above: Performed By: #### A MM #### [facility] [address] [place] [address] Dr. Ibis Jimenez Urea nitrogen/Creatinine [Mass ratio] 26.8 mg/mg Normal [facility] Comment on above: Performed By: #### A MM #### [facility] [address] [place] [address] Dr. Ibis Jimenez SALICYLATEon 06-19-2022 SALICYLATE <2.8 Normal <=19.9 [facility] Comment on above: Performed By: #### A CET, SALYC #### [facility] [address] [place] [address] Dr. Ibis Jimenez URINE MICROSCOPIC ONLYon BACTERIA NONE SEEN Normal NONE SEEN [facility] Comment on above: Performed By: #### M DAVID #### [facility] [address] [place] [address] Dr. Ibis Jimenez Bacteria identified Cx Nom (U) NOT INDICATED Normal [facility] Comment on above: Performed By: #### M DAVID #### [facility] [address] [place] [address] Dr. Ibis Jimenez CAST SEEN Abnormal NONE SEEN [facility] Comment on above: Performed By: #### M DAVID #### [facility] [address] [place] [address] Dr. Ibis Jimenez Crystals LM Nom (Urine sed) NONE SEEN Normal NONE SEEN [facility] Comment on above: Performed By: #### M DAVID #### [facility] [address] [place] [address] Dr. Ibis Jimenez Epithelial cells LM Ql (Urine sed) MODERATE Abnormal NONE SEEN /RARE [facility] Comment on above: Performed By: #### M DAVID #### [facility] [address] [place] [address] Dr. Ibis Jimenez HYALINE CAST FEW Normal [facility] Comment on above: Performed By: #### M DAVID #### [facility] [address] [place] [address] Dr. Ibis Jimenez MUCOUS NONE SEEN Normal NONE SEEN [facility] Comment on above: Performed By: #### M DAVID #### [facility] [address] [place] [address] Dr. Ibis Jimenez RBC 2-5 Abnormal 0-2 [facility] Comment on above: Performed By: #### M DAVID #### [facility] [address] [place] [address] Dr. Ibis Jimenez WBC NONE SEEN Normal NONE SEEN [facility] Comment on above: Performed By: #### M DAVID #### [facility] [address] [place] [address] Dr. Ibis Jimenez CBC AUTO DIFFon 06-11-2022 BASO # 0.0 103/ul Normal 0.0-0.1 [facility] Comment on above: Performed By: #### C VDTBH #### [facility] [address] [place] [address] Dr. Ibis Jimenez Basophils/100 WBC (Bld) 0.3 % Normal 0.2-2.0 [facility] Comment on above: Performed By: #### C VDTBH #### [facility] [address] [place] [address] Dr. Ibis Jimenez EO # 0.0 103/ul Normal 0.0-0.7 [facility] Comment on above: Performed By: #### C VDTBH #### [facility] [address] [place] [address] Dr. Ibis Jimenez Eosinophils/100 WBC (Bld) 0.1 % Critically low 0.9-7.0 [facility] Comment on above: Performed By: #### C VDTBH #### [facility] [address] [place] [address] Dr. Ibis Jimenez Erythrocyte distribution width (RBC) [Ratio] 13.2 % Normal 11.0-15.0 [facility] Comment on above: Performed By: #### C VDTBH #### [facility] [address] [place] [address] Dr. Ibis Jimenez Hematocrit (Bld) [Volume fraction] 38.5 % Normal 36.0-48.0 [facility] Comment on above: Performed By: #### C VDTBH #### [facility] [address] [place] [address] Dr. Ibis Jimenez Hemoglobin (Bld) [Mass/Vol] 12.4 g/dL Normal 12.0-16.0 [facility] Comment on above: Performed By: #### C VDTBH #### [facility] [address] [place] [address] Dr. Ibis Jimenez IG # 0.20 10e3/ul Critically high 0.00-0.03 [facility] Comment on above: Performed By: #### C VDTBH #### [facility] [address] [place] [address] Dr. Ibis Jimenez IG % 1.8 % Critically high 0.0-0.5 [facility] Comment on above: Performed By: #### C VDTBH #### [facility] [address] [place] [address] Dr. Ibis Jimenez LYMPH # 0.5 103/ul Critically low 1.2-3.8 [facility] Comment on above: Performed By: #### C VDTBH #### [facility] [address] [place] [address] Dr. Ibis Jimenez Lymphocytes/100 WBC (Bld) 4.6 % Critically low 20.5-60.0 [facility] Comment on above: Performed By: #### C VDTBH #### [facility] [address] [place] [address] Dr. Ibis Jimenez MANUAL DIFF REQ NO Normal [facility] Comment on above: Performed By: #### C VDTBH #### [facility] [address] [address] [address] Ibis Jimenez MCH (RBC) [Entitic mass] 28.2 pg Normal 26.7-34.0 [facility] Comment on above: Performed By: #### C VDTBH #### [facility] [address] [place] [address] Dr. Ibis Jimenez MCHC (RBC) [Mass/Vol] 32.2 g/dL Normal 29.9-35.2 [facility] Comment on above: Performed By: #### C VDTBH #### [facility] [address] [place] [address] Dr. Ibis Jimenez MCV (RBC) [Entitic vol] 87.5 fL Normal 81.0-99.0 [facility] Comment on above: Performed By: #### C VDTBH #### [facility] [address] [place] [address] Dr. Ibis Jimenez MONO # 0.1 103/ul Critically low 0.3-0.8 [facility] Comment on above: Performed By: #### C VDTBH #### [facility] [address] [place] [address] Dr. Ibis Jimenez Monocytes/100 WBC (Bld) 1.3 % Critically low 1.7-12.0 [facility] Comment on above: Performed By: #### C VDTBH #### [facility] [address] [place] [address] Dr. Ibis Jimenez NEUT # 10.1 103/ul Critically high 1.4-6.5 [facility] Comment on above: Performed By: #### C VDTBH #### [facility] [address] [place] [address] Dr. Ibis Jimenez Neutrophils/100 WBC (Bld) 91.9 % Critically high 43.0-75.0 [facility] Comment on above: Performed By: #### C VDTBH #### [facility] [address] [place] [address] Dr. Ibis Jimenez Platelet mean volume (Bld) [Entitic vol] 9.1 fL Critically low 9.5-13.5 [facility] Comment on above: Performed By: #### C VDTBH #### [facility] [address] [place] [address] Dr. Ibis Jimenez PLT 240 103/ul Normal 150-450 [facility] Comment on above: Performed By: #### C VDTBH #### [facility] [address] [place] [address] Dr. Ibis Jimenez RBC 4.40 106/ul Normal 4.20-5.40 [facility] Comment on above: Performed By: #### C VDTBH #### [facility] [address] [place] [address] Dr. Ibis Jimenez WBC 11.0 103/ul Normal 4.0-11.0 [facility] Comment on above: Performed By: #### C VDTBH #### [facility] [address] [place] [address] Dr. Ibis Jimenez PROF 14(COMP METB)on 023 Albumin [Mass/Vol] 3.3 g/dL Critically low 3.4-5.0 [facility] Comment on above: Performed By: #### B MP #### [facility] [address] [place] [address] Dr. Ibis Jimenez Albumin/Globulin [Mass ratio] 0.9 {ratio} Normal [facility] Comment on above: Performed By: #### B MP #### [facility] [address] [place] [address] Dr. Ibis Jimenez ALP [Catalytic activity/Vol] 63 U/L Normal 46-116 [facility] Comment on above: Performed By: #### B MP #### [facility] [address] [place] [address] Dr. Ibis Jimenez ALT [Catalytic activity/Vol] 32 U/L Normal 14-59 [facility] Comment on above: Performed By: #### B MP #### [facility] [address] [place] [address] Dr. Ibis Jimenez Anion gap [Moles/Vol] 12.9 mmol/L Normal [facility] Comment on above: Performed By: #### B MP #### [facility] [address] [address] [address] Ibis Jimenez AST [Catalytic activity/Vol] 14 U/L Critically low 15-37 [facility] Comment on above: Performed By: #### B MP #### [facility] [address] [address] [address] Ibis Jimenez Bilirubin [Mass/Vol] 0.2 mg/dL Normal 0.2-1.0 [facility] Comment on above: Performed By: #### B MP #### [facility]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 Author: Gabino Cadena RN Service: Nursing Author Type: Registered Nurse Type: Nursing Progress Note Filed: 04/01/2022 5:55 AM Note Text: The patient arrives to [address] at this time via cart escorted [...] admission questions when patient condition allows. Normal [facility] Phosphate [Mass/Vol] 2.7 mg/dL Normal 2.7-4.8 [facility] Comment on above: Order Comment: Speci men Type: BLOOD SPECIMENOrdering Facility: [facility] Address: [address] [place] [address] Performed By: #### 2 4323-8, 62769-0, 2776-, 3015-3 ####[facility] [id number] [place] [address] [place] SARS-CoV-2 RNA Resp Ql SAURABH+p robeon 04-01-2022 SARS-CoV-2 (COVID-19) RNA SAURABH+probe Ql (Resp) COVID 19 RESULT: Not detected The method used is RT-PCR or an equivalent NAAT method. Reference Range(the expected result in uninfected individuals): Not detected Normal [facility] Comment on above: Performed By: #### 9 4500-6 #### [facility] CLIA [id number] [address] [place] [address] [place] SOCIAL WORKon 04-01-2022 SOCIAL WORK HNO ID: [id number] Author: GABRIELE Huynh Service: Social Work Author Type: Staffing Administrator Type: Social Work Filed: 04/01/2022 4:21 PM [...] with her current mental health provider for management/treatmen t. HISTORY OBTAINED FROM: Patient CHILDHOOD HISTORY: Patient provides limited history regarding her childhood stating that's confidential information when this auto service writer asks about history of trauma during childhood. She then confirms a trauma history and states this was not from her current parents and does not provide additional history. EDUCATION/EMPLOYMEN T HISTORY: Patient informs she is currently taking [...] informs she has income from her children's [employer] benefits. PSYCHIATRIC HISTORY: Per chart review, patient has a history of depression, anxiety, PTSD, and bipolar disorder; these diagnoses are confirmed by patient. She reports having a [facility], Lucy, [facility] and also has a psychiatrist. Patient informs [...] are watching her children during her hospitalization. ABUSE/NEGLECT/EXPLO ITATION CONCERNS: None identified at this time. COLLATERAL [...] health provide (more content not included)... Normal [facility] TSH SerPl-aCncon 04-01-2022 TSH Qn 0.537 m[IU]/L Normal 0.270-4.200 [facility] Comment on above: Order Comment: Speci men Type: BLOOD SPECIMENOrdering Facility: [facility] Address: [address] [place], [place] [address] Result Comment: If t he patient is , TSH reference range varies by gestational period: First Trimester (weeks 9-12): 0.180-2.990 mIU/L Second Trimester: 0.110-3.980 mIU/L Third Trimester: 0.480-4.710 mIU/L Sanford Fernández et al. A Practical Approach for the Verifications and Determination of Site- and Trimester-Specific Reference Intervals for Thyroid Function tests in . Thyroid, 2019:29:3:412-420. Lior E, et al. 2017 Guidelines of the [place] Thyroid Association for the Diagnosis and Management of Thyroid Disease during and the . Thyroid, 2017:27:3:315-389. Performed By: #### 2 4323-8, 98539-7, 2777-1, 3016-3 ####[facility] LABCLIA [id number] [facility] [id number] [place] [address] [place] URINE MICROSCOPIC ONLYon BACTERIA TRACE Abnormal NONE SEEN [facility] Comment on above: Performed By: #### A CET, SALYC #### [facility] [address] [place] [address] Dr. Ibis Jimenez Bacteria identified Cx Nom (U) NOT INDICATED Normal [facility] Comment on above: Performed By: #### A CET, SALYC #### [facility] [address] [place] [address] Dr. Ibis Jimenez CAST NONE SEEN Normal NONE SEEN [facility] Comment on above: Performed By: #### A CET, SALYC #### [facility] [address] [place] [address] Dr. Ibis Jimenez Crystals LM Nom (Urine sed) NONE SEEN Normal NONE SEEN [facility] Comment on above: Performed By: #### A CET, SALYC #### [facility] [address] [place] [address] Dr. Ibis Jimenez Epithelial cells LM Ql (Urine sed) RARE Normal NONE SEEN /RARE [facility] Comment on above: Performed By: #### A CET, SALYC #### [facility] [address] [place] [address] Dr. Ibis Jimeenz MUCOUS TRACE Abnormal NONE SEEN [facility] Comment on above: Performed By: #### A CET, SALYC #### [facility] [address] [place] [address] Dr. Ibis Jimenez RBC 0-2 Normal 0-2 [facility] Comment on above: Performed By: #### A CET, SALYC #### [facility] [address] [place] [address] Dr. Ibis Jimenez WBC NONE SEEN Normal NONE SEEN [facility] Comment on above: Performed By: #### A CET, SALYC #### [facility] [address] [place] [address] Dr. Ibis Jimenez AMMONIAon 03-31-2022 Ammonia (P) [Moles/Vol] 31 umol/L Normal 11-32 T [facility] Comment on above: Performed By: #### A MM #### [facility] [address] [place] [address] Dr. Ibis Jimenez CBC AUTO DIFFon 03-31-2022 BASO # 0.0 103/ul Normal 0.0-0.1 [facility] Comment on above: Performed By: #### A MM #### [facility] [address] [place] [address] Dr. Ibis Jimenez Basophils/100 WBC (Bld) 0.4 % Normal 0.2-2.0 [facility] Comment on above: Performed By: #### A MM #### [facility] [address] [place] [address] Dr. Ibis Jimenez EO # 0.5 103/ul Normal 0.0-0.7 [facility] Comment on above: Performed By: #### A MM #### [facility] [address] [place] [address] Dr. Ibis Jimenez Eosinophils/100 WBC (Bld) 6.4 % Normal 0.9-7.0 [facility] Comment on above: Performed By: #### A MM #### [facility] [address] [place] [address] Dr. Ibis Jimenez Erythrocyte distribution width (RBC) [Ratio] 12.8 % Normal 11.0-15.0 [facility] Comment on above: Performed By: #### A MM #### [facility] [address] [place] [address] Dr. Ibis Jimenez Hematocrit (Bld) [Volume fraction] 36.6 % Normal 36.0-48.0 [facility] Comment on above: Performed By: #### A MM #### [facility] [address] [place] [address] Dr. Ibis Jimenez Hemoglobin (Bld) [Mass/Vol] 12.5 g/dL Normal 12.0-16.0 [facility] Comment on above: Performed By: #### A MM #### [facility] [address] [place] [address] Dr. Ibis Jimenez IG # 0.02 10e3/ul Normal 0.00-0.03 [facility] Comment on above: Performed By: #### A MM #### [facility] [address] [place] [address] Dr. Ibis Jimenez IG % 0.3 % Normal 0.0-0.5 [facility] Comment on above: Performed By: #### A MM #### [facility] [address] [place] [address] Dr. Ibis Jimenez LYMPH # 2.0 103/ul Normal 1.2-3.8 [facility] Comment on above: Performed By: #### A MM #### [facility] [address] [place] [address] Dr. Ibis Jimenez Lymphocytes/100 WBC (Bld) 25.0 % Normal 20.5-60.0 [facility] Comment on above: Performed By: #### A MM #### [facility] [address] [place] [address] Dr. Ibis Jimenez MANUAL DIFF REQ NO Normal [facility] Comment on above: Performed By: #### A MM #### [facility] [address] [place] [address] Dr. Ibis Jimenez MCH (RBC) [Entitic mass] 29.5 pg Normal 26.7-34.0 [facility] Comment on above: Performed By: #### A MM #### [facility] [address] [place] [address] Dr. Ibis Jimenez MCHC (RBC) [Mass/Vol] 34.2 g/dL Normal 29.9-35.2 [facility] Comment on above: Performed By: #### A MM #### [facility] [address] [place] [address] Dr. Ibis Jimenez MCV (RBC) [Entitic vol] 86.3 fL Normal 81.0-99.0 [facility] Comment on above: Performed By: #### A MM #### [facility] [address] [place] [address] Dr. Ibis Jimenez MONO # 0.4 103/ul Normal 0.3-0.8 [facility] Comment on above: Performed By: #### A MM #### [facility] [address] [place] [address] Dr. Ibis Jimenez Monocytes/100 WBC (Bld) 5.6 % Normal 1.7-12.0 [facility] Comment on above: Performed By: #### A MM #### [facility] [address] [place] [address] Dr. Ibis Jimenez NEUT # 4.9 103/ul Normal 1.4-6.5 [facility] Comment on above: Performed By: #### A MM #### [facility] [address] [place] [address] Dr. Ibis Jimenez Neutrophils/100 WBC (Bld) 62.3 % Normal 43.0-75.0 [facility] Comment on above: Performed By: #### A MM #### [facility] [address] [place] [address] Dr. Ibis Jimenez Platelet mean volume (Bld) [Entitic vol] 9.5 fL Normal 9.5-13.5 [facility] Comment on above: Performed By: #### A MM #### [facility] [address] [place] [address] Dr. Ibis Jimenez PLT 246 103/ul Normal 150-450 [facility] Comment on above: Performed By: #### A MM #### [facility] [address] [place] [address] Dr. Ibis Jimenez RBC 4.24 106/ul Normal 4.20-5.40 [facility] Comment on above: Performed By: #### A MM #### [facility] [address] [place] [address] Dr. Ibis Jimenez WBC 7.8 103/ul Normal 4.0-11.0 [facility] Comment on above: Performed By: #### A MM #### [facility] [address] [place] [address] Dr. Ibis Jimenez CULTURE BLOODon 03-31-2022 Microscopic examination of blood, culture Culture Observations: NO GROWTH AT 5 DAYS. Normal [facility] Comment on above: Performed By: #### B LDCX2 #### [facility] [address] [place] [address] Dr. Ibis Jimenez Microscopic examination of blood, culture Culture Observations: NO GROWTH AT 5 DAYS. Normal [facility] Comment on above: Performed By: #### B MP #### [facility] [address] [place] [address] Dr. Ibis Jimenez LACTATE/LACTIC ACIDon 2022 Lactate [Moles/Vol] 2.8 mmol/L Critically high 0.4-1.9 [facility] Comment on above: Performed By: #### C VDTBH #### [facility] [address] [place], [place] [id number] Dr. Ibis Jimneez PROF 14(COMP METB)on 023 Albumin [Mass/Vol] 3.4 g/dL Normal 3.4-5.0 [facility] Comment on above: Performed By: #### B MP #### [facility] [address] [place] [address] Dr. Ibis Jimenez Albumin/Globulin [Mass ratio] 1.2 {ratio} Normal [facility] Comment on above: Performed By: #### B MP #### [facility] [address] [place] [address] Dr. Ibis Jimenez ALP [Catalytic activity/Vol] 85 U/L Normal 46-116 [facility] Comment on above: Performed By: #### B MP #### [facility] [address] [place] [address] Dr. Ibis Jimenez ALT [Catalytic activity/Vol] 18 U/L Normal 14-59 [facility] Comment on above: Performed By: #### B MP #### [facility] [address] [place] [address] Dr. Ibis Jimenez Anion gap [Moles/Vol] 13.2 mmol/L Normal [facility] Comment on above: Performed By: #### B MP #### [facility] [address] [place] [address] Dr. Ibis Jimenez AST [Catalytic activity/Vol] 11 U/L Critically low 15-37 [facility] Comment on above: Performed By: #### B MP #### [facility] [address] [place] [address] Dr. Ibis Jimenez Bilirubin [Mass/Vol] 0.2 mg/dL Normal 0.2-1.0 [facility] Comment on above: Performed By: #### B MP #### [facility] [address] [place] [address] Dr. Ibis Jimenez Calcium [Mass/Vol] 8.6 mg/dL Normal 8.5-10.1 [facility] Comment on above: Performed By: #### B MP #### [facility] [address] [place] [address] Dr. Ibis Jimenez Chloride [Moles/Vol] 105 mmol/L Normal 98-107 [facility] Comment on above: Performed By: #### B MP #### [facility] [address] [address] [address] Ibis Jimenez CO2 [Moles/Vol] 25.1 mmol/L Normal 21.0-32.0 [facility] Comment on above: Performed By: #### B MP #### [facility] [address] [address] [address] Ibis Jimenez Creatinine [Mass/Vol] 0.80 mg/dL Normal 0.55-1.02 [facility] Comment on above: Performed By: #### B MP #### [facility] [address] [place] [address] Dr. Ibis Jimenez EGFR-AF BARBADIAN >60 Normal >=60 [facility] Comment on above: Performed By: #### B MP #### [facility] [address] [address] [address] Ibis Jimenez EGFR-NON AF BARBADIAN >60 Normal >=60 [facility] Comment on above: Performed By: #### B MP #### [facility] [address] [address] [address] Ibis Jimenez Globulin (S) [Mass/Vol] 2.9 g/dL Normal T [facility] Comment on above: Performed By: #### B MP #### [facility] [address] [address] [address] Ibis Jimenez Glucose [Mass/Vol] 99 mg/dL Normal 74-106 [facility] Comment on above: Performed By: #### B MP #### [facility] [address] [address] [address] Ibis Jimenez Potassium [Moles/Vol] 3.3 mmol/L Critically low 3.5-5.1 [facility] Comment on above: Performed By: #### B MP #### [facility] [address] [place] [address] Dr. Ibis Jimenez Protein [Mass/Vol] 6.3 g/dL Critically low 6.4-8.2 [facility] Comment on above: Performed By: #### B MP #### [facility] [address] [place] [address] Dr. Ibis Jimenez Sodium [Moles/Vol] 140 mmol/L Normal 136-145 [facility] Comment on above: Performed By: #### B MP #### [facility] [address] [place] [address] Dr. Ibis Jimenez Urea nitrogen [Mass/Vol] 10.0 mg/dL Normal 7.0-18.0 [facility] Comment on above: Performed By: #### B MP #### [facility] [address] [place] [address] Dr. Ibis Jimenez Urea nitrogen/Creatinine [Mass ratio] 12.5 mg/mg Normal [facility] Comment on above: Performed By: #### B MP #### [facility] [address] [place] [address] Dr. Ibis Jimenez CBC AUTO DIFFon 01-14-2022 BASO # 0.0 103/ul Normal 0.0-0.1 [facility] Comment on above: Performed By: #### A MM #### [facility] [address] [place] [address] Dr. Ibis Jimenez Basophils/100 WBC (Bld) 0.3 % Normal 0.2-2.0 [facility] Comment on above: Performed By: #### A MM #### [facility] [address] [place] [address] Dr. Ibis Jimenez EO # 0.2 103/ul Normal 0.0-0.7 [facility] Comment on above: Performed By: #### A MM #### [facility] [address] [place] [address] Dr. Ibis Jimenez Eosinophils/100 WBC (Bld) 2.7 % Normal 0.9-7.0 [facility] Comment on above: Performed By: #### A MM #### [facility] [address] [place] [address] Dr. Ibis Jimenez Erythrocyte distribution width (RBC) [Ratio] 13.2 % Normal 11.0-15.0 [facility] Comment on above: Performed By: #### A MM #### [facility] [address] [place] [address] Dr. Ibis Jimenez Hematocrit (Bld) [Volume fraction] 35.7 % Critically low 36.0-48.0 [facility] Comment on above: Performed By: #### A MM #### [facility] [address] [place] [address] Dr. Ibis Jimenez Hemoglobin (Bld) [Mass/Vol] 12.2 g/dL Normal 12.0-16.0 [facility] Comment on above: Performed By: #### A MM #### [facility] [address] [place] [address] Dr. Ibis Jimenez IG # 0.04 10e3/ul Critically high 0.00-0.03 [facility] Comment on above: Performed By: #### A MM #### [facility] [address] [place] [address] Dr. Ibis Jimenez IG % 0.5 % Normal 0.0-0.5 [facility] Comment on above: Performed By: #### A MM #### [facility] [address] [place] [address] Dr. Ibis Jimenez LYMPH # 2.1 103/ul Normal 1.2-3.8 [facility] Comment on above: Performed By: #### A MM #### [facility] [address] [place] [address] Dr. Ibis Jimenez Lymphocytes/100 WBC (Bld) 27.3 % Normal 20.5-60.0 [facility] Comment on above: Performed By: #### A MM #### [facility] [address] [place] [address] Dr. Ibis Jimenez MANUAL DIFF REQ NO Normal [facility] Comment on above: Performed By: #### A MM #### [facility] [address] [place] [address] Dr. Ibis Jimenez MCH (RBC) [Entitic mass] 29.0 pg Normal 26.7-34.0 [facility] Comment on above: Performed By: #### A MM #### [facility] [address] [address] [address] Ibis Jimenez MCHC (RBC) [Mass/Vol] 34.2 g/dL Normal 29.9-35.2 [facility] Comment on above: Performed By: #### A MM #### [facility] [address] [place] [address] Dr. Ibis Jimenez MCV (RBC) [Entitic vol] 84.8 fL Normal 81.0-99.0 [facility] Comment on above: Performed By: #### A MM #### [facility] [address] [place] [address] Dr. Ibis Jimenez MONO # 0.7 103/ul Normal 0.3-0.8 [facility] Comment on above: Performed By: #### A MM #### [facility] [address] [place] [address] Dr. Ibis Jimenez Monocytes/100 WBC (Bld) 8.7 % Normal 1.7-12.0 [facility] Comment on above: Performed By: #### A MM #### [facility] [address] [place] [address] Dr. Ibis Jimenez NEUT # 4.7 103/ul Normal 1.4-6.5 [facility] Comment on above: Performed By: #### A MM #### [facility] [address] [place] [address] Dr. Ibis Jimenez Neutrophils/100 WBC (Bld) 60.5 % Normal 43.0-75.0 [facility] Comment on above: Performed By: #### A MM #### [facility] [address] [place] [address] Dr. Ibis Jimenez Platelet mean volume (Bld) [Entitic vol] 9.6 fL Normal 9.5-13.5 [facility] Comment on above: Performed By: #### A MM #### [facility] [address] [place] [address] Dr. Ibis Jimenez PLT 212 103/ul Normal 150-450 [facility] Comment on above: Performed By: #### A MM #### [facility] [address] [place], [place] [address] Dr. Ibis Jimenez RBC 4.21 106/ul Normal 4.20-5.40 [facility] Comment on above: Performed By: #### A MM #### [facility] [address] [place], [place] [address] Dr. Ibis Jimenez WBC 7.7 103/ul Normal 4.0-11.0 [facility] Comment on above: Performed By: #### A MM #### [facility] [address] [place], [place] [address] ABD/PELV W CONon [...] TONY DAHL Date: 2022-01-14 20:01 Normal [facility] ER URINE PROFILEon 2 Bilirubin Ql (U) Negative Normal NEGATIVE [facility] Comment on above: Performed By: #### A CET, SALYC #### [facility] [address] [place] [address] Dr. Ibis Jimenez Clarity (U) CLEAR Normal CLEAR [facility] Comment on above: Performed By: #### A CET, SALYC #### [facility] [address] [address] [address] Ibis Jimenez Color (U) LT. YELLOW Normal YELLOW [facility] Comment on above: Performed By: #### A CET, SALYC #### [facility] [address] [place] [address] Dr. Ibis RODRIGUEZ A micrscopic examination will be performed if indicated. Normal [facility] Comment on above: Performed By: #### A CET, SALYC #### [facility] [address] [place] [address] Dr. Ibis Jimenez Glucose Ql (U) Negative Normal NEGATIVE [facility] Comment on above: Performed By: #### A CET, SALYC #### [facility] [address] [place] [address] Dr. Ibis Jimenez Hemoglobin Ql (U) Negative Normal NEGATIVE [facility] Comment on above: Performed By: #### A CET, SALYC #### [facility] [address] [place] [address] Dr. Ibis Jimenez Ketones Ql (U) Negative Normal NEGATIVE [facility] Comment on above: Performed By: #### A CET, SALYC #### [facility] [address] [place] [address] Dr. Ibis Jimenez LEUKOCYTES TRACE Abnormal NEGATIVE [facility] Comment on above: Performed By: #### A CET, SALYC #### [facility] [address] [place] [address] Dr. Ibis Jimenez Nitrite Ql (U) Negative Normal NEGATIVE [facility] Comment on above: Performed By: #### A CET, SALYC #### [facility] [address] [place] [address] Dr. Ibis Jimenez pH (U) 5.5 [pH] Normal 5-9 [facility] Comment on above: Performed By: #### A CET, SALYC #### [facility] [address] [place] [address] Dr. Ibis Jimenez SPEC GRAVITY 1.025 Normal 1.005-<=1.[address] [place] [address] Comment on above: Performed By: #### A CET, SALYC #### [facility] [address] [place] [address] Dr. Ibis Jimenez UA PROTEIN Negative Normal NEGATIVE/ TRACE [facility] Comment on above: Performed By: #### A CET, SALYC #### [facility] [address] [place] [address] Dr. Ibis Jimenez UR MICRO IND INDICATED Normal [facility] Comment on above: Performed By: #### A CET, SALYC #### [facility] [address] [place] [address] Dr. Ibis Jimenez Urobilinogen Qn (U) 0.2 {Dinorah'U}/dL Normal 0.2 - 1. 0 [facility] Comment on above: Performed By: #### A CET, SALYC #### [facility] [address] [place] [address] Dr. Ibis Jimenez URon 01-14-2022 , QUAL Negative Normal NEGATIVE [facility] Comment on above: Performed By: #### A CET, SALYC #### [facility] [address] [place] [address] Dr. Ibis Jimenez PROF CHEM 8 (BAS METB)on Anion gap [Moles/Vol] 9.9 mmol/L Normal [facility] Comment on above: Performed By: #### B MP #### [facility] [address] [place] [address] Dr. Ibis Jimenez Calcium [Mass/Vol] 8.6 mg/dL Normal 8.5-10.1 [facility] Comment on above: Performed By: #### B MP #### [facility] [address] [place] [address] Dr. Ibis Jimenez Chloride [Moles/Vol] 105 mmol/L Normal 98-107 [facility] Comment on above: Performed By: #### B MP #### [facility] [address] [address] [address] Ibis Jimenez CO2 [Moles/Vol] 27.5 mmol/L Normal 21.0-32.0 [facility] Comment on above: Performed By: #### B MP #### [facility] [address] [place] [address] Dr. Ibis Jimenez Creatinine [Mass/Vol] 0.70 mg/dL Normal 0.55-1.02 [facility] Comment on above: Performed By: #### B MP #### [facility] [address] [place] [address] Dr. Ibis Jimenez EGFR-AF BARBADIAN >60 Normal >=60 [facility] Comment on above: Performed By: #### B MP #### [facility] [address] [place] [address] Dr. Ibis Jimenez EGFR-NON AF BARBADIAN >60 Normal >=60 [facility] Comment on above: Performed By: #### B MP #### [facility] [address] [place] [address] Dr. Ibis Jimenez Glucose [Mass/Vol] 83 mg/dL Normal 74-106 [facility] Comment on above: Performed By: #### B MP #### [facility] [address] [place] [address] Dr. Ibis Jimenez Potassium [Moles/Vol] 4.4 mmol/L Normal 3.5-5.1 [facility] Comment on above: Performed By: #### B MP #### [facility] [address] [place] [address] Dr. Ibis Jimenez Sodium [Moles/Vol] 138 mmol/L Normal 136-145 [facility] Comment on above: Performed By: #### B MP #### [facility] [address] [place] [address] Dr. Ibis Jimenez Urea nitrogen [Mass/Vol] 13.0 mg/dL Normal 7.0-18.0 [facility] Comment on above: Performed By: #### B MP #### [facility] [address] [place] [address] Dr. Ibis Jimenez Urea nitrogen/Creatinine [Mass ratio] 18.6 mg/mg Normal [facility] Comment on above: Performed By: #### B MP #### [facility] [address] [place] [address] Dr. Ibis Jimenez URINE MICROSCOPIC ONLYon BACTERIA NONE SEEN Normal NONE SEEN [facility] Comment on above: Performed By: #### A CET, SALYC #### [facility] [address] [place] [address] Dr. Ibis Jimenez Bacteria identified Cx Nom (U) NOT INDICATED Normal [facility] Comment on above: Performed By: #### A CET, SALYC #### [facility] [address] [place] [address] Dr. Ibis Jimenez CAST NONE SEEN Normal NONE SEEN [facility] Comment on above: Performed By: #### A CET, SALYC #### [facility] [address] [place] [address] Dr. Ibis Jimenez Crystals LM Nom (Urine sed) NONE SEEN Normal NONE SEEN [facility] Comment on above: Performed By: #### A CET, SALYC #### [facility] [address] [place] [address] Dr. Ibis Jimenez Epithelial cells LM Ql (Urine sed) FEW Abnormal NONE SEEN /RARE [facility] Comment on above: Performed By: #### A CET, SALYC #### [facility] [address] [place] [address] Dr. Ibis Jimenez MUCOUS NONE SEEN Normal NONE SEEN [facility] Comment on above: Performed By: #### A CET, SALYC #### [facility] [address] [place] [address] Dr. Ibis Jimenez RBC NONE SEEN Abnormal 0-2 [facility] Comment on above: Performed By: #### A CET, SALYC #### [facility] [address] [place] [address] Dr. Ibis Jimenez WBC NONE SEEN Normal NONE SEEN [facility] Comment on above: Performed By: #### A CET, SALYC #### [facility] [address] [place] [address] Dr. Ibis Jimenez CBC AUTO DIFFon 01-07-2022 BASO # 0.0 103/ul Normal 0.0-0.1 [facility] Comment on above: Performed By: #### A CET, SALYC #### [facility] [address] [place] [address] Dr. Ibis Jimenez Basophils/100 WBC (Bld) 0.2 % Normal 0.2-2.0 [facility] Comment on above: Performed By: #### A CET, SALYC #### [facility] [address] [place] [address] Dr. Ibis Jimenez EO # 0.0 103/ul Normal 0.0-0.7 [facility] Comment on above: Performed By: #### A CET, SALYC #### [facility] [address] [place] [address] Dr. Ibis Jimenez Eosinophils/100 WBC (Bld) 0.4 % Critically low 0.9-7.0 [facility] Comment on above: Performed By: #### A CET, SALYC #### [facility] [address] [place] [address] Dr. Ibis Jimenez Erythrocyte distribution width (RBC) [Ratio] 13.2 % Normal 11.0-15.0 [facility] Comment on above: Performed By: #### A CET, SALYC #### [facility] [address] [place] [address] Dr. Ibis Jimenez Hematocrit (Bld) [Volume fraction] 39.7 % Normal 36.0-48.0 [facility] Comment on above: Performed By: #### A CET, SALYC #### [facility] [address] [place] [address] Dr. Iibs Jimenez Hemoglobin (Bld) [Mass/Vol] 13.4 g/dL Normal 12.0-16.0 [facility] Comment on above: Performed By: #### A CET, SALYC #### [facility] [address] [place] [address] Dr. Ibis Jimenez IG # 0.06 10e3/ul Critically high 0.00-0.03 [facility] Comment on above: Performed By: #### A CET, SALYC #### [facility] [address] [place] [address] Dr. Ibis Jimenez IG % 0.5 % Normal 0.0-0.5 [facility] Comment on above: Performed By: #### A CET, SALYC #### [facility] [address] [place] [address] Dr. Ibis Jimenez LYMPH # 2.6 103/ul Normal 1.2-3.8 [facility] Comment on above: Performed By: #### A CET, SALYC #### [facility] [address] [place] [address] Dr. Ibis Jimenez Lymphocytes/100 WBC (Bld) 23.8 % Normal 20.5-60.0 [facility] Comment on above: Performed By: #### A CET, SALYC #### [facility] [address] [place] [address] Dr. Ibis Jimenez MANUAL DIFF REQ NO Normal [facility] Comment on above: Performed By: #### A CET, SALYC #### [facility] [address] [place] [address] Dr. Ibis Jimenez MCH (RBC) [Entitic mass] 28.8 pg Normal 26.7-34.0 [facility] Comment on above: Performed By: #### A CET, SALYC #### [facility] [address] [place] [address] Dr. Ibis Jimenez MCHC (RBC) [Mass/Vol] 33.8 g/dL Normal 29.9-35.2 [facility] Comment on above: Performed By: #### A CET, SALYC #### [facility] [address] [place] [address] Dr. Ibis Jimenez MCV (RBC) [Entitic vol] 85.2 fL Normal 81.0-99.0 [facility] Comment on above: Performed By: #### A CET, SALYC #### [facility] [address] [place] [address] Dr. Ibis Jimenez MONO # 0.8 103/ul Normal 0.3-0.8 [facility] Comment on above: Performed By: #### A CET, SALYC #### [facility] [address] [place] [address] Dr. Ibis Jimenez Monocytes/100 WBC (Bld) 7.7 % Normal 1.7-12.0 [facility] Comment on above: Performed By: #### A CET, SALYC #### [facility] [address] [place] [address] Dr. Ibis Jimenez NEUT # 7.4 103/ul Critically high 1.4-6.5 [facility] Comment on above: Performed By: #### A CET, SALYC #### [facility] [address] [place] [address] Dr. Ibis Jimenez Neutrophils/100 WBC (Bld) 67.4 % Normal 43.0-75.0 [facility] Comment on above: Performed By: #### A CET, SALYC #### [facility] [address] [place] [address] Dr. Ibis Jimenez Platelet mean volume (Bld) [Entitic vol] 9.8 fL Normal 9.5-13.5 [facility] Comment on above: Performed By: #### A CET, SALYC #### [facility] [address] [place] [address] Dr. Ibis Jimenez PLT 261 103/ul Normal 150-450 [facility] Comment on above: Performed By: #### A CET, SALYC #### [facility] [address] [place] [address] Dr. Ibis Jimenez RBC 4.66 106/ul Normal 4.20-5.40 [facility] Comment on above: Performed By: #### A CET, SALYC #### [facility] [address] [address] [address] Ibis Jimenez WBC 10.9 103/ul Normal 4.0-11.0 [facility] Comment on above: Performed By: #### A KORI DVAIS #### [facility] [address] [address] [address] Ibis Jimenez PROF CHEM 8 (BAS METB)on Anion gap [Moles/Vol] 14.1 mmol/L Normal [facility] Comment on above: Performed By: #### B MP #### [facility] [address] [address] [address] Ibis Jimenez Calcium [Mass/Vol] 8.5 mg/dL Normal 8.5-10.1 [facility] Comment on above: Performed By: #### B MP #### [facility] [address] [place] [address] Dr. Ibis Jimenez Chloride [Moles/Vol] 103 mmol/L Normal 98-107 [facility] Comment on above: Performed By: #### B MP #### [facility] [address] [address] [address] Ibis Jimenez CO2 [Moles/Vol] 22.5 mmol/L Normal 21.0-32.0 [facility] Comment on above: Performed By: #### B MP #### [facility] [address] [place] [address] Dr. Ibis Jimenez Creatinine [Mass/Vol] 0.64 mg/dL Normal 0.55-1.02 [facility] Comment on above: Performed By: #### B MP #### [facility] [address] [place] [address] Dr. Ibis Jimenez EGFR-AF BARBADIAN >60 Normal >=60 [facility] Comment on above: Performed By: #### B MP #### [facility] [address] [address] [address] Ibis Jimenez EGFR-NON AF BARBADIAN >60 Normal >=60 [facility] Comment on above: Performed By: #### B MP #### [facility] [address] [address] [address] Ibis Jimenez Glucose [Mass/Vol] 141 mg/dL Critically high 74-106 [facility] Comment on above: Performed By: #### B MP #### [facility] [address] [address] [address] Ibis Jimenez Potassium [Moles/Vol] 3.6 mmol/L Normal 3.5-5.1 [facility] Comment on above: Performed By: #### B MP #### [facility] [address] [place] [address] Dr. Ibis Jimenez Sodium [Moles/Vol] 136 mmol/L Normal 136-145 [facility] Comment on above: Performed By: #### B MP #### [facility] [address] [place] [address] Dr. Ibis Jimenez Urea nitrogen [Mass/Vol] 16.0 mg/dL Normal 7.0-18.0 [facility] Comment on above: Performed By: #### B MP #### [facility] [address] [place] [address] Dr. Ibis Jimenez Urea nitrogen/Creatinine [Mass ratio] 25.0 mg/mg Normal [facility] Comment on above: Performed By: #### B MP #### [facility] [address] [place] [address] Dr. Ibis Jimenez CBC AUTO DIFFon 11-04-2021 BASO # 0.0 103/ul Normal 0.0-0.1 [facility] Comment on above: Performed By: #### A CET SALYC #### [facility] [address] [place] [address] Dr. Ibis Jimenez Basophils/100 WBC (Bld) 0.4 % Normal 0.2-2.0 [facility] Comment on above: Performed By: #### A CET, SALYC #### [facility] [address] [place] [address] Dr. Ibis Jimenez EO # 0.2 103/ul Normal 0.0-0.7 [facility] Comment on above: Performed By: #### A CET SALYC #### [facility] [address] [place] [address] Dr. Ibis Jimenez Eosinophils/100 WBC (Bld) 4.1 % Normal 0.9-7.0 [facility] Comment on above: Performed By: #### A CET, SALYC #### [facility] [address] [place] [address] Dr. Ibis Jimenez Erythrocyte distribution width (RBC) [Ratio] 13.2 % Normal 11.0-15.0 [facility] Comment on above: Performed By: #### A CET, SALYC #### [facility] [address] [place] [address] Dr. Ibis Jimenez Hematocrit (Bld) [Volume fraction] 34.3 % Critically low 36.0-48.0 [facility] Comment on above: Performed By: #### A CET, SALYC #### [facility] [address] [place] [address] Dr. Ibis Jimenez Hemoglobin (Bld) [Mass/Vol] 11.5 g/dL Critically low 12.0-16.0 [facility] Comment on above: Performed By: #### A CET, SALYC #### [facility] [address] [place] [address] Dr. Ibis Jimenez IG # 0.01 10e3/ul Normal 0.00-0.03 [facility] Comment on above: Performed By: #### A CET, SALYC #### [facility] [address] [place] [address] Dr. Ibis Jimenez IG % 0.2 % Normal 0.0-0.5 [facility] Comment on above: Performed By: #### A CET, SALYC #### [facility] [address] [place] [address] Dr. Ibis Jimenez LYMPH # 1.5 103/ul Normal 1.2-3.8 [facility] Comment on above: Performed By: #### A CET, SALYC #### [facility] [address] [place] [address] Dr. Ibis Jimenez Lymphocytes/100 WBC (Bld) 26.4 % Normal 20.5-60.0 [facility] Comment on above: Performed By: #### A CET, SALYC #### [facility] [address] [place] [address] Dr. Ibis Jimenez MANUAL DIFF REQ NO Normal [facility] Comment on above: Performed By: #### A CET, SALYC #### [facility] [address] [place] [address] Dr. Ibis Jimenez MCH (RBC) [Entitic mass] 28.8 pg Normal 26.7-34.0 [facility] Comment on above: Performed By: #### A CET, SALYC #### [facility] [address] [place] [address] Dr. Ibis Jimenez MCHC (RBC) [Mass/Vol] 33.5 g/dL Normal 29.9-35.2 [facility] Comment on above: Performed By: #### A CET, SALYC #### [facility] [address] [place] [address] Dr. Ibis Jimenez MCV (RBC) [Entitic vol] 86.0 fL Normal 81.0-99.0 [facility] Comment on above: Performed By: #### A CET, SALYC #### [facility] [address] [place] [address] Dr. Ibis Jimenez MONO # 0.5 103/ul Normal 0.3-0.8 [facility] Comment on above: Performed By: #### A CET, SALYC #### [facility] [address] [place] [address] Dr. Ibis Jimenez Monocytes/100 WBC (Bld) 8.2 % Normal 1.7-12.0 [facility] Comment on above: Performed By: #### A CET, SALYC #### [facility] [address] [place] [address] Dr. Ibis Jimenez NEUT # 3.4 103/ul Normal 1.4-6.5 [facility] Comment on above: Performed By: #### A CET, SALYC #### [facility] [address] [place] [address] Dr. Ibis Jimenez Neutrophils/100 WBC (Bld) 60.7 % Normal 43.0-75.0 [facility] Comment on above: Performed By: #### A CET, SALYC #### [facility] [address] [place] [address] Dr. Ibis Jimenez Platelet mean volume (Bld) [Entitic vol] 9.9 fL Normal 9.5-13.5 [facility] Comment on above: Performed By: #### A CET, SALYC #### [facility] [address] [address] [address] Ibis Jimenez PLT 222 103/ul Normal 150-450 [facility] Comment on above: Performed By: #### A CET, SALYC #### [facility] [address] [place] [address] Dr. Ibis Jimenez RBC 3.99 106/ul Critically low 4.20-5.40 [facility] Comment on above: Performed By: #### A CET, SALYC #### [facility] [address] [place] [address] Dr. Ibis Jimenez WBC 5.6 103/ul Normal 4.0-11.0 [facility] Comment on above: Performed By: #### A CET, SALYC #### [facility] [address] [place] [address] Dr. Ibis Jimenez PROF CHEM 8 (BAS METB)on Anion gap [Moles/Vol] 10.5 mmol/L Normal [facility] Comment on above: Performed By: #### B MP #### [facility] [address] [place] [address] Dr. Ibis Jimenez Calcium [Mass/Vol] 8.8 mg/dL Normal 8.5-10.1 [facility] Comment on above: Performed By: #### B MP #### [facility] [address] [place] [address] Dr. Ibis Jimenez Chloride [Moles/Vol] 105 mmol/L Normal 98-107 [facility] Comment on above: Performed By: #### B MP #### [facility] [address] [place] [address] Dr. Ibis Jimenez CO2 [Moles/Vol] 24.9 mmol/L Normal 21.0-32.0 [facility] Comment on above: Performed By: #### B MP #### [facility] [address] [address] [address] Ibis Jimenez Creatinine [Mass/Vol] 0.71 mg/dL Normal 0.55-1.02 [facility] Comment on above: Performed By: #### B MP #### [facility] [address] [address] [address] Ibis Jimenez EGFR-AF BARBADIAN >60 Normal >=60 [facility] Comment on above: Performed By: #### B MP #### [facility] [address] [address] [address] Ibis Jimenez EGFR-NON AF BARBADIAN >60 Normal >=60 [facility] Comment on above: Performed By: #### B MP #### [facility] [address] [address] [address] Ibis Jimenez Glucose [Mass/Vol] 103 mg/dL Normal 74-106 [facility] Comment on above: Performed By: #### B MP #### [facility] [address] [address] [address] Ibis Jimenez Potassium [Moles/Vol] 3.4 mmol/L Critically low 3.5-5.1 [facility] Comment on above: Performed By: #### B MP #### [facility] [address] [address] [address] Ibis Jimenez Sodium [Moles/Vol] 137 mmol/L Normal 136-145 [facility] Comment on above: Performed By: #### B MP #### [facility] [address] [address] [address] Ibis Jimenez Urea nitrogen [Mass/Vol] 17.0 mg/dL Normal 7.0-18.0 [facility] Comment on above: Performed By: #### B MP #### [facility] [address] [address] [address] Ibis Jimenez Urea nitrogen/Creatinine [Mass ratio] 23.9 mg/mg Normal [facility] Comment on above: Performed By: #### B MP #### [facility] [address] [place], [place] [address] Dr. Ibis Jimenez Basic Metab w/rfx MGon 10-20 (cont.) Normal [facility] Comment on above: Result Comment: Aver age GFR for 20-29 years old: 116 mL/min/1.73sq m Chronic Kidney Disease: <60 mL/min/1.73sq m Kidney failure: <15 mL/min/1.73sq m eGFR calculated using average adult body mass. Additional eGFR calculator available at: http://[email or web address]_crcl_2011.htm Performed By: #### B MPX #### [address] [address] New Account Interviewer: Tavon Nicole MD Anion gap [Moles/Vol] 10 mmol/L Normal 9-17 [facility] Comment on above: Performed By: #### B MPX #### [address] [address] New Account Interviewer: Tavon Nicole MD Calcium [Mass/Vol] 7.8 mg/dL Low 8.6-10.4 [facility] Comment on above: Performed By: #### B MPX #### [address] [address] New Account Interviewer: Tavon Nicole MD Chloride [Moles/Vol] 109 mmol/L High 98-107 [facility] Comment on above: Performed By: #### B MPX #### [address] [address] New Account Interviewer: Tavon Nicole MD CO2 [Moles/Vol] 20 mmol/L Normal - [facility] Comment on above: Performed By: #### B MPX #### [address] [address] New Account Interviewer: Tavon Nicole MD Creatinine [Mass/Vol] 0.45 mg/dL Low 0.50-0.90 [facility] Comment on above: Performed By: #### B MPX #### [address] [address] New Account Interviewer: Tavon Nicole MD GFR, Amer >60 Normal >60 [facility] Comment on above: Performed By: #### B MPX #### [facility] [employer] [address] [place] [id number] New Account Interviewer: Tavon Nicole MD GFR,non Amer >60 Normal >60 [facility] Comment on above: Performed By: #### B MPX #### [address] [address] New Account Interviewer: Tavon Nicole MD Glucose [Mass/Vol] 84 mg/dL Normal 70-99 [facility] Comment on above: Performed By: #### B MPX #### [address] [address] New Account Interviewer: Tavon Nicole MD Potassium [Moles/Vol] 4.1 mmol/L Normal 3.7-5.3 [facility] Comment on above: Result Comment: SPEC IMEN SLIGHTLY HEMOLYZED, RESULTS MAY BE ADVERSELY AFFECTED. Performed By: #### B MPX #### [address] [address] New Account Interviewer: Tavon Nicole MD Sodium [Moles/Vol] 139 mmol/L Normal 135-144 [facility] Comment on above: Performed By: #### B MPX #### [facility] [employer] [address] [place] [id number] New Account Interviewer: Tavon Nicole MD Urea nitrogen [Mass/Vol] 8 mg/dL Normal 6-20 [facility] Comment on above: Performed By: #### B MPX #### [facility] [address] [place] [address] New Account Interviewer: Tavon Nicole MD Basic Metabolic Panel w/ Ref rossi to MGon 10-20-2021 Anion gap [Moles/Vol] 10 mmol/L 9 - 17 mmol/L [facility] Calcium [Mass/Vol] 7.8 mg/dL Low 8.6 - 10. 4 mg/dL [facility] Chloride [Moles/Vol] 109 mmol/L High 98 - 10 7 mmol/L [facility] CO2 [Moles/Vol] 20 mmol/L 20 - 31 mmol/L [facility] Creatinine [Mass/Vol] 0.45 mg/dL Low 0.5 - 0.9 mg/dL [facility] GFR >60 60 - PI NF mL/min [facility] GFR Non- >60 60 - PINF mL/min [facility] GFR/1.73 sq M.predicted MDRD (S/P/Bld) [Vol rate/Area] [facility] Comment on above: Average GFR for 20-2 9 years old: 116 mL/min/1.73sq m Chronic Kidney Disease: <60 mL/min/1.73sq m Kidney failure: <15 mL/min/1.73sq m eGFR calculated using average adult body mass. Additional eGFR calculator available at: http://[email or web address]_crcl_2012.htm Glucose [Mass/Vol] 84 mg/dL 70 - 99 mg/dL [facility] Interpretation and review of laboratory results Abnormal [facility] Potassium [Moles/Vol] 4.1 mmol/L 3.7 - 5.3 mmol/L [facility] Comment on above: SPECIMEN SLIGHTLY HE MOLYZED, RESULTS MAY BE ADVERSELY AFFECTED. Sodium [Moles/Vol] 139 mmol/L 135 - 144 mmol/L [facility] Urea nitrogen (BldV) [Mass/Vol] 8 mg/dL 6 - 20 mg/dL [facility] CBC with Auto Differentialon 10-20-2021 Absolute Eos # 0.15 [facility] Absolute Immature Granulocyte [facility] Absolute Lymph # 1.48 [facility] Absolute [place] # 0.28 [facility] Basophils (Bld) [#/Vol] 0.03 10*3/uL [facility] Basophils/100 WBC (Bld) 1 % 0 - 2 % B [facility] Eosinophils/100 WBC (Bld) 3 % 1 - 4 % [facility] Hematocrit (Bld) [Volume fraction] 35.5 % Low 36.3 - 47.1 % [facility] Hemoglobin (Bld) [Mass/Vol] 11.3 g/dL Low 11.9 - 15.1 g/dL [facility] Immature granulocytes/100 WBC (Bld) 0 % 0 [facility] Interpretation and review of laboratory results Abnormal [facility] Lymphocytes/100 WBC (Bld) 34 % 24 - 43 % [facility] MCH (RBC) [Entitic mass] 27.9 pg 25.2 - 33.5 pg [facility] MCHC (RBC) [Mass/Vol] 31.8 g/dL 28.4 - 34.8 g/dL [facility] MCV (RBC) [Entitic vol] 87.7 fL 82.6 - 102.9 fL [facility] Monocytes/100 WBC (Bld) 6 % 3 - 12 % B [facility] NRBC Automated 0.0 0.0 per 100 WBC [facility] Platelet distribution width (Bld) [Ratio] 12.9 % 11.8 - 14.4 % [facility] Platelets (Bld) [#/Vol] See Reflexed IPF Result [facility] RBC (Bld) [#/Vol] 4.05 10*6/uL 3.95 - 5.1 1 m/uL [facility] Segmented neutrophils/100 WBC (Bld) 55 % 36 - 65 % [facility] Segs Absolute 2.42 [facility] WBC (Bld) [#/Vol] 4.4 10*3/uL [facility] CBC with Diffon 10-20-2021 Abs. Basophil 0.03 k/uL Normal 0.00-0.20 [facility] Comment on above: Performed By: #### C DP, IPF #### [place] [address] New Account Interviewer: Tavon Nicole MD Abs.Imm.Granulocyte <0.03 Normal 0.00-0.30 [facility] Comment on above: Performed By: #### C DP, IPF #### [place] [address] New Account Interviewer: Tavon Nicole MD Abs.Neutrophil (Seg) 2.42 k/uL Normal 1.50-8.10 [facility] Comment on above: Performed By: #### C DP, IPF #### [place] [address] New Account Interviewer: Tavon Nicole MD Basophils/100 WBC (Bld) 1 % Normal 0-2 [facility] Comment on above: Performed By: #### C DP, IPF #### [place] [address] New Account Interviewer: Tavon Nicole MD Eosinophils (Bld) [#/Vol] 0.15 10*3/uL Normal 0.00-0.44 [facility] Comment on above: Performed By: #### C DP, IPF #### [place] [address] New Account Interviewer: Tavon Nicole MD Eosinophils/100 WBC (Bld) 3 % Normal 1-4 [facility] Comment on above: Performed By: #### C DP, IPF #### [place] [address] New Account Interviewer: Tavon Nicole MD Immature granulocytes/100 WBC (Bld) 0 % Normal 0 [facility] Comment on above: Performed By: #### C DP, IPF #### [address] [address] New Account Interviewer: Tavon Nicole MD Lymphocytes (Bld) [#/Vol] 1.48 10*3/uL Normal 1.10-3.70 [facility] Comment on above: Performed By: #### C DP, IPF #### [address] [address] New Account Interviewer: Tavon Nicole MD Lymphocytes/100 WBC (Bld) 34 % Normal 24-43 [facility] Comment on above: Performed By: #### C DP, IPF #### [address] [address] New Account Interviewer: Tavon Nicole MD Monocytes (Bld) [#/Vol] 0.28 10*3/uL Normal 0.10-1.20 [facility] Comment on above: Performed By: #### C DP, IPF #### [address] [address] New Account Interviewer: Tavon Nicole MD Monocytes/100 WBC (Bld) 6 % Normal 3-12 [facility] Comment on above: Performed By: #### C DP, IPF #### [address] [address] New Account Interviewer: Tavon Nicole MD Neutrophil (Seg) 55 % Normal 36-65 [facility] Comment on above: Performed By: #### C DP, IPF #### [address] [address] New Account Interviewer: Tavon Nicole MD Erythrocyte distribution width (RBC) [Ratio] 12.9 % Normal 11.8-14.4 [facility] Comment on above: Performed By: #### C DP, IPF #### [address] [address] New Account Interviewer: Tavon Nicole MD Hematocrit (Bld) [Volume fraction] 35.5 % Low 36.3-47.1 [facility] Comment on above: Performed By: #### C DP, IPF #### [address] [address] New Account Interviewer: Tavon Nicole MD Hemoglobin (Bld) [Mass/Vol] 11.3 g/dL Low 11.9-15.1 [facility] Comment on above: Performed By: #### C DP, IPF #### [address] [address] New Account Interviewer: Tavon Nicole MD MCH (RBC) [Entitic mass] 27.9 pg Normal 25.2-33.5 [facility] Comment on above: Performed By: #### C DP, IPF #### [address] [address] New Account Interviewer: Tavon Nicole MD MCHC (RBC) [Mass/Vol] 31.8 g/dL Normal 28.4-34.8 [facility] Comment on above: Performed By: #### C DP, IPF #### [address] [address] New Account Interviewer: Tavon Nicole MD MCV (RBC) [Entitic vol] 87.7 fL Normal 82.6-102.9 [facility] Comment on above: Performed By: #### C DP, IPF #### [address] [address] New Account Interviewer: Tavon Nicole MD NRBC Automated 0.0 per 100 WBC Normal 0.0 [facility] Comment on above: Performed By: #### C DP, IPF #### [address] [address] New Account Interviewer: Tavon Nicole MD Platelet Count See Reflexed IPF Result Normal 138-453 [facility] Comment on above: Performed By: #### C DP, IPF #### [facility] [address] [place] [address] New Account Interviewer: Tavon Nicole MD RBC (Bld) [#/Vol] 4.05 10*6/uL Normal 3.95-5.11 [facility] Comment on above: Performed By: #### C DP, IPF #### [facility] [address] [place] [address] New Account Interviewer: Tavon Nicole MD WBC (Bld) [#/Vol] 4.4 10*3/uL Normal 3.5-11.3 [facility] Comment on above: Performed By: #### C DP, IPF #### [facility] [address] [place] [address] New Account Interviewer: Tavon Nicole MD EEG video monitoringon 10-20 Raiza Land MD 10/20/2021 12:11 PM Referring physician: Chris Blanchard [employer]ER Date:10/20/2021 Start Time:10/19/2021 @1258 End Time: 10/20/2021 @ 1200 Indication Patient with recurrent events Introduction This continuous video-EEG was acquired using a SideStep workstation at 256 samples/s. Electrodes were placed [...] Board Certified. Neurology Board Certified. Electronically Signed [facility] [employer] Work Phone: EEG video monitoringOrdered By: Raiza Land on 10-20-2021 [facility] [employer] Work Phone: Immature Platelet Fractionon 10-20-2021 Platelet, Fluorescence Platelet clumps present, count appears adequate. [facility] [employer] [facility] [employer] PLT, Immature Fract.on 10-20 Platelet, Fluoresc. Platelet clumps present, count appears adequate. Normal 138-453 [facility] Comment on above: Performed By: #### C DP, IPF #### [facility] [employer] [address] [place] [address] New Account Interviewer: Tavon Nicole MD PROLACTINon 10-20-2021 Prolactin 41.7 ng/mL Critically high 4.8-23.3 [facility] Comment on above: Performed By: #### C VDTBH #### [facility] [address] [address] [address] Ibis Jimenez CBCon 6 Erythrocyte distribution width (RBC) [Ratio] 12.9 % Normal 11.8-14.4 [facility] Comment on above: Performed By: #### T ROPI, LACTIC, CMPX, CBC #### [facility] [employer] [address] [place] [address] New Account Interviewer: Tavon Nicole MD Hematocrit (Bld) [Volume fraction] 31.5 % Low 36.3-47.1 [facility] Comment on above: Performed By: #### T ROPI, LACTIC, CMPX, CBC #### [facility] [employer] [address] [place] [address] New Account Interviewer: Tavon Nicole MD Hemoglobin (Bld) [Mass/Vol] 10.8 g/dL Low 11.9-15.1 [facility] Comment on above: Performed By: #### T ROPI, LACTIC, CMPX, CBC #### [address] [address] New Account Interviewer: Tavon Nicole MD MCH (RBC) [Entitic mass] 29.1 pg Normal 25.2-33.5 [facility] Comment on above: Performed By: #### T ROPI, LACTIC, CMPX, CBC #### [address] [address] New Account Interviewer: Tavon Nicole MD MCHC (RBC) [Mass/Vol] 34.3 g/dL Normal 28.4-34.8 [facility] Comment on above: Performed By: #### T ROPI, LACTIC, CMPX, CBC #### [address] [address] New Account Interviewer: Tavon Nicole MD MCV (RBC) [Entitic vol] 84.9 fL Normal 82.6-102.9 [facility] Comment on above: Performed By: #### T ROPI, LACTIC, CMPX, CBC #### [address] [address] New Account Interviewer: Tavon Nicole MD NRBC Automated 0.0 per 100 WBC Normal 0.0 [facility] Comment on above: Performed By: #### T ROPI, LACTIC, CMPX, CBC #### [address] [address] New Account Interviewer: Tavon Nicole MD Platelet mean volume (Bld) [Entitic vol] 9.8 fL Normal 8.1-13.5 [facility] Comment on above: Performed By: #### T ROPI, LACTIC, CMPX, CBC #### [address] [address] New Account Interviewer: Tavon Nicole MD Platelets (Bld) [#/Vol] 281 10*3/uL Normal 138-453 [facility] Comment on above: Performed By: #### T ROPI, LACTIC, CMPX, CBC #### [facility] [address] [place], [place] [id number] New Account Interviewer: Tavon Nicole MD RBC (Bld) [#/Vol] 3.71 10*6/uL Low 3.95-5.11 [facility] Comment on above: Performed By: #### T ROPI, LACTIC, CMPX, CBC #### [facility] [address] [place], [place] [phone] New Account Interviewer: Tavon Nicole MD WBC (Bld) [#/Vol] 5.0 10*3/uL Normal 3.5-11.3 [facility] Comment on above: Performed By: #### T ROPI, LACTIC, CMPX, CBC #### [facility] [address] [place], [place] [id number] New Account Interviewer: Tavon Nicole MD Hematocrit (Bld) [Volume fraction] 31.5 % Low 36.3 - 47.1 % [facility] Hemoglobin (Bld) [Mass/Vol] 10.8 g/dL Low 11.9 - 15.1 g/dL [facility] Interpretation and review of laboratory results Abnormal [facility] MCH (RBC) [Entitic mass] 29.1 pg 25.2 - 33.5 pg [facility] MCHC (RBC) [Mass/Vol] 34.3 g/dL 28.4 - 34.8 g/dL [facility] MCV (RBC) [Entitic vol] 84.9 fL 82.6 - 102.9 fL [facility] NRBC Automated 0.0 0.0 per 100 WBC [facility] Platelet distribution width (Bld) [Ratio] 12.9 % 11.8 - 14.4 % [facility] Platelet mean volume (Bld) [Entitic vol] 9.8 fL 8.1 - 13.5 fL [facility] Platelets (Bld) [#/Vol] 281 10*3/uL [facility] RBC (Bld) [#/Vol] 3.71 10*6/uL Low 3.95 - 5.1 1 m/uL [facility] WBC (Bld) [#/Vol] 5.0 10*3/uL [facility] CBC AUTO DIFFon 10-19-2021 EO # 0.2 103/ul Normal 0.0-0.7 [facility] Comment on above: Performed By: #### A MM #### [facility] [address] [place] [address] Dr. Ibis Jimenez Eosinophils/100 WBC (Bld) 3.9 % Normal 0.9-7.0 [facility] Comment on above: Performed By: #### A MM #### [facility] [address] [place] [address] Dr. Ibis Jimenez Erythrocyte distribution width (RBC) [Ratio] 13.1 % Normal 11.0-15.0 [facility] Comment on above: Performed By: #### A MM #### [facility] [address] [place] [address] Dr. Ibis Jimenez Hematocrit (Bld) [Volume fraction] 33.4 % Critically low 36.0-48.0 [facility] Comment on above: Performed By: #### A MM #### [facility] [address] [place] [address] Dr. Ibis Jimenez Hemoglobin (Bld) [Mass/Vol] 11.1 g/dL Critically low 12.0-16.0 [facility] Comment on above: Performed By: #### A MM #### [facility] [address] [place] [address] Dr. Ibis Jimenez LYMPH # 1.2 103/ul Normal 1.2-3.8 [facility] Comment on above: Performed By: #### A MM #### [facility] [address] [place] [address] Dr. Ibis Jimenez Lymphocytes/100 WBC (Bld) 25.9 % Normal 20.5-60.0 [facility] Comment on above: Performed By: #### A MM #### [facility] [address] [place] [address] Dr. Ibis Jimenez MCHC (RBC) [Mass/Vol] 33.2 g/dL Normal 29.9-35.2 [facility] Comment on above: Performed By: #### A MM #### [facility] [address] [place] [address] Dr. Ibis Jimenez MCV (RBC) [Entitic vol] 85.9 fL Normal 81.0-99.0 [facility] Comment on above: Performed By: #### A MM #### [facility] [address] [place] [address] Dr. Ibis Jimenez Monocytes/100 WBC (Bld) 7.7 % Normal 1.7-12.0 [facility] Comment on above: Performed By: #### A MM #### [facility] [address] [place] [address] Dr. Ibis Jimenez NEUT # 2.9 103/ul Normal 1.4-6.5 [facility] Comment on above: Performed By: #### A MM #### [facility] [address] [place] [address] Dr. Ibis Jimenez Neutrophils/100 WBC (Bld) 61.5 % Normal 43.0-75.0 [facility] Comment on above: Performed By: #### A MM #### [facility] [address] [place] [address] Dr. Ibis Jimenez PLT 264 103/ul Normal 150-450 [facility] Comment on above: Performed By: #### A MM #### [facility] [address] [place] [address] Dr. Ibis Jimenez RBC 3.89 106/ul Critically low 4.20-5.40 [facility] Comment on above: Performed By: #### A MM #### [facility] [address] [place] [address] Dr. Ibis Jimenez WBC 4.7 103/ul Normal 4.0-11.0 [facility] Comment on above: Performed By: #### A MM #### [facility] [address] [place] [address] Dr. Ibis Jimenez BASO # 0.0 103/ul Normal 0.0-0.1 [facility] Comment on above: Performed By: #### A MM #### [facility] [address] [place] [address] Dr. Ibis Jimenez Performed By: #### C VDTBH #### [facility] [address] [place] [address] Dr. Ibis Jimenez Basophils/100 WBC (Bld) 0.6 % Normal 0.2-2.0 [facility] Comment on above: Performed By: #### A MM #### [facility] [address] [place] [address] Dr. Ibis Jimenez Performed By: #### C VDTBH #### [facility] [address] [place] [address] Dr. Ibis Jimenez EO # 0.3 103/ul Normal 0.0-0.7 [facility] Comment on above: Performed By: #### C VDTBH #### [facility] [address] [place] [address] Dr. Ibis Jimenez Eosinophils/100 WBC (Bld) 5.0 % Normal 0.9-7.0 [facility] Comment on above: Performed By: #### C VDTBH #### [facility] [address] [place] [address] Dr. Ibis Jimenez Erythrocyte distribution width (RBC) [Ratio] 12.8 % Normal 11.0-15.0 [facility] Comment on above: Performed By: #### C VDTBH #### [facility] [address] [place] [address] Dr. Ibis Jimenez Hematocrit (Bld) [Volume fraction] 38.0 % Normal 36.0-48.0 [facility] Comment on above: Performed By: #### C VDTBH #### [facility] [address] [place] [address] Dr. Ibis Jimenez Hemoglobin (Bld) [Mass/Vol] 12.7 g/dL Normal 12.0-16.0 [facility] Comment on above: Performed By: #### C VDTBH #### [facility] [address] [place] [address] Dr. Ibis Jimenez IG # 0.02 10e3/ul Normal 0.00-0.03 [facility] Comment on above: Performed By: #### A MM #### [facility] [address] [place] [address] Dr. Ibis Jimenez Performed By: #### C VDTBH #### [facility] [address] [place] [address] Dr. Ibis Jimenez IG % 0.4 % Normal 0.0-0.5 [facility] Comment on above: Performed By: #### A MM #### [facility] [address] [place] [address] Dr. Ibis Jimenez Performed By: #### C VDTBH #### [facility] [address] [place] [address] Dr. Ibis Jimenez LYMPH # 1.7 103/ul Normal 1.2-3.8 [facility] Comment on above: Performed By: #### C VDTBH #### [facility] [address] [place] [address] Dr. Ibis Jimenez Lymphocytes/100 WBC (Bld) 30.7 % Normal 20.5-60.0 [facility] Comment on above: Performed By: #### C VDTBH #### [facility] [address] [place] [address] Dr. Ibis Jimenez MANUAL DIFF REQ NO Normal [facility] Comment on above: Performed By: #### A MM #### [facility] [address] [place] [address] Dr. Ibis Jimenez Performed By: #### C VDTBH #### [facility] [address] [place] [address] Dr. Ibis Jimenez MCH (RBC) [Entitic mass] 28.5 pg Normal 26.7-34.0 [facility] Comment on above: Performed By: #### A MM #### [facility] [address] [place] [address] Dr. Ibis Jimenez Performed By: #### C VDTBH #### [facility] [address] [place] [address] Dr. Ibis Jimenez MCHC (RBC) [Mass/Vol] 33.4 g/dL Normal 29.9-35.2 [facility] Comment on above: Performed By: #### C VDTBH #### [facility] [address] [place] [address] Dr. Ibis Jimenez MCV (RBC) [Entitic vol] 85.2 fL Normal 81.0-99.0 [facility] Comment on above: Performed By: #### C VDTBH #### [facility] [address] [place] [address] Dr. Ibis Jimenez MONO # 0.4 103/ul Normal 0.3-0.8 [facility] Comment on above: Performed By: #### A MM #### [facility] [address] [place] [address] Dr. Ibis Jimenez Performed By: #### C VDTBH #### [facility] [address] [place] [address] Dr. Ibis Jimenez Monocytes/100 WBC (Bld) 8.1 % Normal 1.7-12.0 [facility] Comment on above: Performed By: #### C VDTBH #### [facility] [address] [place] [address] Dr. Ibis Jimenez NEUT # 3.0 103/ul Normal 1.4-6.5 [facility] Comment on above: Performed By: #### C VDTBH #### [facility] [address] [place] [address] Dr. Ibis Jimenez Neutrophils/100 WBC (Bld) 55.2 % Normal 43.0-75.0 [facility] Comment on above: Performed By: #### C VDTBH #### [facility] [address] [place] [address] Dr. Ibis Jimenez Platelet mean volume (Bld) [Entitic vol] 9.5 fL Normal 9.5-13.5 [facility] Comment on above: Performed By: #### A MM #### [facility] [address] [place] [address] Dr. Ibis Jimenez Performed By: #### C VDTBH #### [facility] [address] [place] [address] [address] [address] Ibis Jimenez PLT 343 103/ul Normal 150-450 [facility] Comment on above: Performed By: #### C VDTBH #### [facility] [address] [place] [address] Dr. Ibis Jimenez RBC 4.46 106/ul Normal 4.20-5.40 [facility] Comment on above: Performed By: #### C VDTBH #### [facility] [address] [place] [address] Dr. Ibis Jimenez WBC 5.4 103/ul Normal 4.0-11.0 [facility] Comment on above: Performed By: #### C VDTBH #### [facility] [address] [place] [address] HEAD WO CONon [...] by: LOPEZ REYNOLDS Date: 2021-10-19 07:31 Normal [facility] Comp Metabolic Pr/rfx MGon 0 10-19-2021 (cont.) Normal [facility] Comment on above: Result Comment: Aver age GFR for 20-29 years old: 116 mL/min/1.73sq m Chronic Kidney Disease: <60 mL/min/1.73sq m Kidney failure: <15 mL/min/1.73sq m eGFR calculated using average adult body mass. Additional eGFR calculator available at: http://[email or web address]/multiple_crcl_2012.htm Performed By: #### T ROPI, LACTIC, CMPX, CBC #### [facility] [address] [place] [address] New Account Interviewer: Tavon Nicole MD Albumin [Mass/Vol] 3.5 g/dL Normal 3.5-5.2 [facility] Comment on above: Performed By: #### T ROPI, LACTIC, CMPX, CBC #### [facility] [employer] [address] [place] [address] New Account Interviewer: Tavon Nicole MD Albumin/Glob Ratio 1.4 Normal 1.0-2.5 [facility] Comment on above: Performed By: #### T ROPI, LACTIC, CMPX, CBC #### [facility] [employer] [address] [place] [address] New Account Interviewer: Tavon Nicole MD Alkaline Phos 69 U/L Normal 35-104 [facility] Comment on above: Performed By: #### T ROPI, LACTIC, CMPX, CBC #### [facility] [employer] [address] [place] [address] New Account Interviewer: Tavon Nicole MD ALT [Catalytic activity/Vol] 15 U/L Normal 5-33 [facility] Comment on above: Performed By: #### T ROPI, LACTIC, CMPX, CBC #### [facility] [employer] [address] [place] [address] New Account Interviewer: Tavon Nicole MD Anion gap [Moles/Vol] 13 mmol/L Normal 9-17 [facility] Comment on above: Performed By: #### T ROPI, LACTIC, CMPX, CBC #### [facility] [address] [place] [address] New Account Interviewer: Tavon Nicole MD AST [Catalytic activity/Vol] 12 U/L Normal <32 [facility] Comment on above: Performed By: #### T ROPI, LACTIC, CMPX, CBC #### [facility] [address] [place] [address] New Account Interviewer: Tavon Nicole MD Bilirubin [Mass/Vol] 0.24 mg/dL Low 0.3-1.2 [facility] Comment on above: Performed By: #### T ROPI, LACTIC, CMPX, CBC #### [facility] [employer] [address] [place] [address] New Account Interviewer: Tavon Nicole MD Calcium [Mass/Vol] 8.1 mg/dL Low 8.6-10.4 [facility] Comment on above: Performed By: #### T ROPI, LACTIC, CMPX, CBC #### [address] [address] New Account Interviewer: Tavon Nicole MD Chloride [Moles/Vol] 107 mmol/L Normal 98-107 [facility] Comment on above: Performed By: #### T ROPI, LACTIC, CMPX, CBC #### [facility] [employer] [address] [place] [address] New Account Interviewer: Tavon Nicole MD CO2 [Moles/Vol] 19 mmol/L Low 20-31 [facility] Comment on above: Performed By: #### T ROPI, LACTIC, CMPX, CBC #### [facility] [employer] [address] [place] [address] New Account Interviewer: Tavon Nicole MD Creatinine [Mass/Vol] 0.53 mg/dL Normal 0.50-0.90 [facility] Comment on above: Performed By: #### T ROPI, LACTIC, CMPX, CBC #### [facility] [employer] [address] [place] [address] New Account Interviewer: Tavon Nicole MD GFR, Amer >60 Normal >60 [facility] Comment on above: Performed By: #### T ROPI, LACTIC, CMPX, CBC #### [facility] [address] [place] [address] New Account Interviewer: Tavon Nicole MD GFR,non Amer >60 Normal >60 [facility] Comment on above: Performed By: #### T ROPI, LACTIC, CMPX, CBC #### [facility] [employer] [address] [place] [phone] New Account Interviewer: Tavon Nicole MD Glucose [Mass/Vol] 81 mg/dL Normal 70-99 [facility] Comment on above: Performed By: #### T ROPI, LACTIC, CMPX, CBC #### [facility] [employer] [address] [place] [address] New Account Interviewer: Tavon Nicole MD Potassium [Moles/Vol] 3.9 mmol/L Normal 3.7-5.3 [facility] Comment on above: Performed By: #### T ROPI, LACTIC, CMPX, CBC #### [address] [address] New Account Interviewer: Tavon Nicole MD Protein [Mass/Vol] 6.0 g/dL Low 6.4-8.3 [facility] Comment on above: Performed By: #### T ROPI, LACTIC, CMPX, CBC #### [facility] [employer] [address] [place] [address] New Account Interviewer: Tavon Nicole MD Sodium [Moles/Vol] 139 mmol/L Normal 135-144 [facility] Comment on above: Performed By: #### T ROPI, LACTIC, CMPX, CBC #### [facility] [employer] [address] [place] [address] [place] [id number] New Account Interviewer: Tavon Nicole MD Urea nitrogen [Mass/Vol] 10 mg/dL Normal 6-20 [facility] Comment on above: Performed By: #### T ROPI, LACTIC, CMPX, CBC #### [facility] [address] [place], [place] [id number] New Account Interviewer: Tavon Nicole MD Comprehensive Metabolic Pane l w/ Reflex to MGon 10-19-2021 Albumin [Mass/Vol] 3.5 g/dL 3.5 - 5.2 g/dL [facility] Albumin/Globulin [Mass ratio] 1.4 {ratio} 1 - 2.5 [facility] ALP (Bld) [Catalytic activity/Vol] 69 U/L 35 - 104 U/L [facility] ALT [Catalytic activity/Vol] 15 U/L 5 - 33 U/L [facility] Anion gap [Moles/Vol] 13 mmol/L 9 - 17 mmol/L [facility] AST [Catalytic activity/Vol] 12 U/L NINF - 32 U/L [facility] Bilirubin [Mass/Vol] 0.24 mg/dL Low 0.3 - 1 .2 mg/dL [facility] Calcium [Mass/Vol] 8.1 mg/dL Low 8.6 - 10. 4 mg/dL [facility] Chloride [Moles/Vol] 107 mmol/L 98 - 10 7 mmol/L [facility] CO2 [Moles/Vol] 19 mmol/L Low 20 - 31 mmol/L [facility] Creatinine [Mass/Vol] 0.53 mg/dL 0.5 - 0.9 mg/dL [facility] Free PSA/Total PSA [Mass fraction] 6.0 g/dL Low 6.4 - 8.3 g/dL [facility] GFR >60 60 - PI NF mL/min [facility] GFR Non- >60 60 - PINF mL/min [facility] GFR/1.73 sq M.predicted MDRD (S/P/Bld) [Vol rate/Area] [facility] Comment on above: Average GFR for 20-2 9 years old: 116 mL/min/1.73sq m Chronic Kidney Disease: <60 mL/min/1.73sq m Kidney failure: <15 mL/min/1.73sq m eGFR calculated using average adult body mass. Additional eGFR calculator available at: http://www.[employer]/multiple_crcl_2012.htm Glucose [Mass/Vol] 81 mg/dL 70 - 99 mg/dL [facility] Interpretation and review of laboratory results Abnormal [facility] Potassium [Moles/Vol] 3.9 mmol/L 3.7 - 5.3 mmol/L [facility] Sodium [Moles/Vol] 139 mmol/L 135 - 144 mmol/L [facility] Urea nitrogen (BldV) [Mass/Vol] 10 mg/dL 6 - 20 mg/dL [facility] Covid-19 PCR ([facility])on 09-22 SARS-CoV-2 (COVID-19) RNA SAURABH+probe Ql (Unsp spec) Not detected Normal NOT DETECTED [facility] Comment on above: Result Comment: When diagnostic [...] for this test is supported by the [place] of Health and Human Service's declaration that [...] longer be used). Performed By: #### [facility] #### [facility] [address] [place] [address] Dr. Ibis Jimenez DRUG SCREEN RAPID (URINE)on 10-19-2021 AMP Negative Normal NEGATIVE [facility] Comment on above: Performed By: #### B MP #### [facility] [address] [place] [address] Dr. Ibis Jimenez BAR Positive Abnormal NEGATIVE [facility] Comment on above: Performed By: #### B MP #### [facility] [address] [place] [address] Dr. Ibis Jimenez BUP Negative Normal NEGATIVE [facility] Comment on above: Performed By: #### B MP #### [facility] [address] [place] [address] Dr. Ibis Jimenez BZO Positive Abnormal NEGATIVE [facility] Comment on above: Performed By: #### B MP #### [facility] [address] [place] [address] Dr. Ibis Jimenez SEMAJ Negative Normal NEGATIVE [facility] Comment on above: Performed By: #### B MP #### [facility] [address] [place] [address] Dr. Ibis Jimenez CUT-OFFS SEE BELOW Normal [facility] Comment on above: Result Comment: AMP (Amphetamine): 500ng/mL, BAR (Barbituates): 200 ng/mL, BZO (Benzodiazepines): 150 ng/mL, BUP (Buprenorphine): 10 ng/mL, SEMAJ (Cocaine): 150 ng/mL, mAMP (Methamphetamine): 500 ng/mL, MTD (Methadone): 200 ng/mL, OPI (Opiates): 100 ng/mL, OXY (Oxycodone): 100 ng/mL, PCP (Phencyclidine): 25 ng/mL, PPX (Propoxyphene): 300 ng/mL, THC (Cannabinoids): 50 ng/mL, TCA (Trycyclic Antidepressants): 300 ng/mL Performed By: #### B MP #### [facility] [address] [place] [address] Dr. Ibis Jimenez DRUG CUT HEADER DRUG CLASS TEST SYSTEM CUT-OFF CONCENTRATIONS ARE FOLLOWS: Normal [facility] Comment on above: Performed By: #### B MP #### [facility] [address] [place] [address] Dr. Ibis Jimenez mAMP Negative Normal NEGATIVE [facility] Comment on above: Performed By: #### B MP #### [facility] [address] [place] [address] Dr. Ibis Jimenez MTD Negative Normal NEGATIVE [facility] Comment on above: Performed By: #### B MP #### [facility] [address] [place] [address] Dr. Ibis Jimenez OPI Positive Abnormal NEGATIVE [facility] Comment on above: Performed By: #### B MP #### [facility] [address] [place] [address] Dr. Ibis Jimenez OXY Positive Abnormal NEGATIVE [facility] Comment on above: Performed By: #### B MP #### [facility] [address] [place] [address] Dr. Iibs Jimenez PCP Negative Normal NEGATIVE [facility] Comment on above: Performed By: #### B MP #### [facility] [address] [place] [address] Dr. Ibis Jimenez PPX Negative Normal NEGATIVE [facility] Comment on above: Performed By: #### B MP #### [facility] [address] [place] [address] Dr. Ibis Jimenez TCA Negative Normal NEGATIVE [facility] Comment on above: Performed By: #### B MP #### [facility] [address] [place] [address] Dr. Ibis Jimenez THC Negative Normal NEGATIVE [facility] Comment on above: Performed By: #### B MP #### [facility] [address] [place] [address] Dr. Ibis Jimenez ER URINE PROFILEon 2 Bilirubin Ql (U) Negative Normal NEGATIVE [facility] Comment on above: Performed By: #### B MP #### [facility] [address] [place] [address] Dr. Ibis iJmenez Clarity (U) CLEAR Normal CLEAR [facility] Comment on above: Performed By: #### B MP #### [facility] [address] [place] [address] Dr. Ibis Jimenez Color (U) YELLOW Normal YELLOW [facility] Comment on above: Performed By: #### B MP #### [facility] [address] [place] [address] Dr. Ibis RODRIGUEZ A micrscopic examination will be performed if indicated. Normal [facility] Comment on above: Performed By: #### B MP #### [facility] [address] [place] [address] Dr. Ibis Jimenez Glucose Ql (U) Negative Normal NEGATIVE [facility] Comment on above: Performed By: #### B MP #### [facility] [address] [place] [address] Dr. Ibis Jimenez Hemoglobin Ql (U) TRACE-INTACT Abnormal NEGATIVE [facility] Comment on above: Performed By: #### B MP #### [facility] [address] [place] [address] Dr. Ibis Jimenez Ketones Ql (U) Negative Normal NEGATIVE [facility] Comment on above: Performed By: #### B MP #### [facility] [address] [place] [address] Dr. Ibis Jimenez LEUKOCYTES Negative Normal NEGATIVE [facility] Comment on above: Performed By: #### B MP #### [facility] [address] [place] [address] Dr. Ibis Jimenez Nitrite Ql (U) Negative Normal NEGATIVE [facility] Comment on above: Performed By: #### B MP #### [facility] [address] [place] [address] Dr. Ibis Jimenez pH (U) 5.5 [pH] Normal 5-9 [facility] Comment on above: Performed By: #### B MP #### [facility] [address] [place] [address] Dr. Ibis Jimenez SPEC GRAVITY >=1.030 Abnormal 1.005-<=1.[address] [place] [address] Comment on above: Performed By: #### B MP #### [facility] [address] [place] [address] Dr. Ibis Jimenez UA PROTEIN Negative Normal NEGATIVE/ TRACE [facility] Comment on above: Performed By: #### B MP #### [facility] [address] [place] [address] Dr. Ibis Jimenez UR MICRO IND INDICATED Normal [facility] Comment on above: Performed By: #### B MP #### [facility] [address] [place] [address] Dr. Ibis Jimenez Urobilinogen Qn (U) 0.2 {Dinorah'U}/dL Normal 0.2 - 1. 0 [facility] Comment on above: Performed By: #### B MP #### [facility] [address] [place] [address] Dr. Ibis Jimenez LACTATE/LACTIC ACIDon 2021 Lactate [Moles/Vol] 1.2 mmol/L Normal 0.4-1.9 [facility] Comment on above: Performed By: #### A MM #### [facility] [address] [place] [address] Dr. Ibis Jimenez Lactic Acidon 10-19-2021 Lactic Acid,Whole Bl 0.9 mmol/L Normal 0.7-2.1 [facility] Comment on above: Performed By: #### T ROPI, LACTIC, CMPX, CBC #### [facility] [address] [place] [address] New Account Interviewer: Tavon Nicole MD Lactic Acid, Whole Blood 0.9 mmol/L 0.7 - 2.1 mmol/L [facility] MONOon 10-19-2021 Monocytes (Bld) [#/Vol] Negative Normal NEGATIVE [facility] Comment on above: Performed By: #### M DAVID #### [facility] [address] [place] [address] Dr. Ibis Jimenez MRI BRAIN W WO CONTRASTon MRI BRAIN W WO CONTRAST EXAMINATION: MRI OF THE BRAIN WITHOUT AND WITH CONTRAST 10/19/2021 3:24 pm TECHNIQUE: Multiplanar multisequence MRI of the head/brain was performed without and with the administration of intravenous contrast. COMPARISON: Head CT 12/24/2020 HISTORY: ORDERING SYSTEM PROVIDED HISTORY: seizure protocol FINDINGS: INTRACRANIAL STRUCTURES/VENTRICL ES: No evidence of an acute infarct or [...] Carlos Marks DO 10/19/21 Final result Normal [facility] Unremarkable MR brain. [facility] EXAMINATION: MRI OF THE BRAIN WITHOUT AND WITH CONTRAST 10/19/2021 3:24 pm TECHNIQUE: Multiplanar multisequence MRI of the head/brain was performed without and with the administration of intravenous contrast. COMPARISON: Head CT 12/24/2020 HISTORY: ORDERING SYSTEM PROVIDED HISTORY: seizure protocol FINDINGS: INTRACRANIAL STRUCTURES/VENTRICL ES: No evidence of an acute infarct or [...] The soft tissues demonstrate no acute abnormality. [facility] Carlos Marks DO - 10/19/2021 EXAMINATION: MRI OF THE BRAIN WITHOUT AND WITH CONTRAST 10/19/2021 3:24 pm TECHNIQUE: Multiplanar multisequence MRI of the head/brain was performed without and with the administration of intravenous contrast. COMPARISON: Head CT 12/24/2020 HISTORY: ORDERING SYSTEM PROVIDED HISTORY: seizure protocol FINDINGS: INTRACRANIAL STRUCTURES/VENTRICL ES: No evidence of an acute infarct or [...] no acute abnormality. IMPRESSION: Unremarkable MR brain. [employer] Phone: Radiology Study observation (narrative) [employer] Phone: MRI BRAIN W WO CONTRASTOrder ed By: Carlos Marks on 10-19-2021 [facility] [employer] Phone: PH VENOUS BLOODon 10-19-2021 PCO2 VENOUS 36.6 mmHg Critically low 40.0-52.0 [facility] Comment on above: Performed By: #### B MP #### [facility] [address] [place], [place] [address] Dr. Ibis Jimenez pH VENOUS 7.387 Normal 7.330-7.430 [facility] Comment on above: Performed By: #### B MP #### [facility] [address] [place], [place] [address] Dr. Ibis Jimenez PROF CHEM 8 (BAS METB)on Anion gap [Moles/Vol] 11.9 mmol/L Normal [facility] Comment on above: Performed By: #### M DAVID #### [facility] [address] [place] [address] [address] Ibis Jimenez Calcium [Mass/Vol] 9.1 mg/dL Normal 8.5-10.1 [facility] Comment on above: Performed By: #### M DAVID #### [facility] [address] [place] [address] [address] Ibis Jimenez Chloride [Moles/Vol] 104 mmol/L Normal 98-107 [facility] Comment on above: Performed By: #### M DAVID #### [facility] [address] [place] [address] [address] Ibis Jimenez CO2 [Moles/Vol] 26.7 mmol/L Normal 21.0-32.0 [facility] Comment on above: Performed By: #### M DAVID #### [facility] [address] [place] [address] Dr. Ibis Jimenez Creatinine [Mass/Vol] 0.78 mg/dL Normal 0.55-1.02 [facility] Comment on above: Performed By: #### M DAVID #### [facility] [address] [place] [address] [address] Ibis Jimenez EGFR-AF BARBADIAN >60 Normal >=60 [facility] Comment on above: Performed By: #### M DAVID #### [facility] [address] [place] [address] Dr. Ibis Jimenez EGFR-NON AF BARBADIAN >60 Normal >=60 [facility] Comment on above: Performed By: #### M DAVID #### [facility] [address] [place] [address] [address] Ibis Jimenez Glucose [Mass/Vol] 96 mg/dL Normal 74-106 [facility] Comment on above: Performed By: #### M DAVID #### [facility] [address] [place] [address] [address] Ibis Jimenez Potassium [Moles/Vol] 3.6 mmol/L Normal 3.5-5.1 [facility] Comment on above: Performed By: #### M DAVID #### [facility] [address] [place], [place] [address] Dr. Ibis Jimenez Sodium [Moles/Vol] 139 mmol/L Normal 136-145 [facility] Comment on above: Performed By: #### M DAVID #### [facility] [address] [place], [place] [address] Dr. Ibis Jimenez Urea nitrogen [Mass/Vol] 14.0 mg/dL Normal 7.0-18.0 [facility] Comment on above: Performed By: #### M DAVID #### [facility] [address] [place], [place] [address] Dr. Ibis Jimenez Urea nitrogen/Creatinine [Mass ratio] 17.9 mg/mg Normal [facility] Comment on above: Performed By: #### M DAVID #### [facility] [address] [place] [address] [address] Ibis Jimenez TSHon 10-19-2021 TSH 1.389 uIU/mL Normal 0.358-3.740 [facility] Comment on above: Performed By: #### A CET, SALYC #### [facility] [address] [place], [place] [address] Dr. Ibis Jimenez Troponinon 10-19-2021 Troponin, High Sens <6 Normal 0-14 [facility] Comment on above: Result Comment: High Sensitivity Troponin values cannot be compared with other Troponin methodologies. Patients with high levels of Biotin oral intake (i.e >5mg/day) may have falsely decreased Troponin levels. Samples collected within 8 hours of biotin intake may require additional information for diagnosis. Performed By: #### T ROPI, LACTIC, CMPX, CBC #### [employer] [address] [place] [address] New Account Interviewer: Tavon Nicole MD Troponin, High Sensitivity ng/L 0 - 14 ng/L [facility] Comment on above: High Sensitivity Troponin values cannot be compared with other Troponin methodologies. Patients with high levels of Biotin oral intake (i.e >5mg/day) may have falsely decreased Troponin levels. Samples collected within 8 hours of biotin intake may require additional information for diagnosis. [facility] URINE MICROSCOPIC ONLYon BACTERIA TRACE Abnormal NONE SEEN [facility] Comment on above: Performed By: #### B MP #### [facility] [address] [place] [address] Dr. Ibis Jimenez Bacteria identified Cx Nom (U) NOT INDICATED Normal [facility] Comment on above: Performed By: #### B MP #### [facility] [address] [place] [address] Dr. Ibis Jimenez CAST NONE SEEN Normal NONE SEEN [facility] Comment on above: Performed By: #### B MP #### [facility] [address] [place] [address] Dr. Ibis Jimenez Crystals LM Nom (Urine sed) NONE SEEN Normal NONE SEEN [facility] Comment on above: Performed By: #### B MP #### [facility] [address] [place] [address] Dr. Ibis Jimenez Epithelial cells LM Ql (Urine sed) RARE Normal NONE SEEN /RARE [facility] Comment on above: Performed By: #### B MP #### [facility] [address] [place] [address] Dr. Ibis Jimenez MUCOUS LARGE Abnormal NONE SEEN [facility] Comment on above: Performed By: #### B MP #### [facility] [address] [place] [address] Dr. Ibis Jimenez RBC 2-5 Abnormal 0-2 [facility] Comment on above: Performed By: #### B MP #### [facility] [address] [place] [address] Dr. Ibis Jimenez WBC 0-2 Abnormal NONE SEEN [facility] Comment on above: Performed By: #### B MP #### [facility] [address] [place] [address] ABD/PELVIS WO CONon [...] No intra or extrahepatic biliary dilatation. Status postcholecystectomy . Pancreas/Spleen: No pancreatic masses are seen. Pancreatic [...] by: JASS LAURENT Date: 2021-10-06 20:08 Normal [facility] ER URINE PROFILEon 2 Bilirubin Ql (U) Negative Normal NEGATIVE [facility] Comment on above: Performed By: #### M DAVID #### [facility] [address] [place] [address] Dr. Ibis Jimenez Clarity (U) CLEAR Normal CLEAR [facility] Comment on above: Performed By: #### M DAVID #### [facility] [address] [place] [address] Dr. Ibis Jimenez Color (U) LT. YELLOW Normal YELLOW [facility] Comment on above: Performed By: #### M DAVID #### [facility] [address] [place] [address] Dr. Ibis Jimenez ERUAHD A micrscopic examination will be performed if indicated. Normal [facility] Comment on above: Performed By: #### M DAVID #### [facility] [address] [place] [address] [address] Ibis Jimenez Glucose Ql (U) Negative Normal NEGATIVE [facility] Comment on above: Performed By: #### M DAVID #### [facility] [address] [place] [address] [address] Ibis Jimenez Hemoglobin Ql (U) Negative Normal NEGATIVE [facility] Comment on above: Performed By: #### M DAVID #### [facility] [address] [place] [address] [address] Ibis Jimenez Ketones Ql (U) Negative Normal NEGATIVE [facility] Comment on above: Performed By: #### M DAVID #### [facility] [address] [place] [address] [address] Ibis Jimenez LEUKOCYTES Negative Normal NEGATIVE [facility] Comment on above: Performed By: #### M DAVID #### [facility] [address] [place] [address] Dr. Ibis Jimenez Nitrite Ql (U) Negative Normal NEGATIVE [facility] Comment on above: Performed By: #### M DAVID #### [facility] [address] [place] [address] [address] Ibis Jimenez pH (U) 8.0 [pH] Normal 5-9 [facility] Comment on above: Performed By: #### M DAVID #### [facility] [address] [place] [address] Dr. Ibis Jimenez SPEC GRAVITY 1.010 Normal 1.005-<=1.02 5 [facility] Comment on above: Performed By: #### M DAVID #### [facility] [address] [place] [address] Dr. Ibis Jimenez UA PROTEIN Negative Normal NEGATIVE/ TRACE [facility] Comment on above: Performed By: #### M DAVID #### [facility] [address] [place] [address] Dr. Ibis Jimenez UR MICRO IND NOT INDICATED Normal [facility] Comment on above: Performed By: #### M DAVID #### [facility] [address] [place] [address] [address] Ibis Jimenez Urobilinogen Qn (U) 0.2 {Dinorah'U}/dL Normal 0.2 - 1. 0 [facility] Comment on above: Performed By: #### M ADVID #### [facility] [address] [place] [address] Dr. Ibis Jimenez ER URINE PROFILEon 2 Bilirubin Ql (U) Negative Normal NEGATIVE [facility] Comment on above: Performed By: #### C VDTBH #### [facility] [address] [place] [address] Dr. Ibis Jimenez Clarity (U) CLEAR Normal CLEAR [facility] Comment on above: Performed By: #### C VDTBH #### [facility] [address] [place] [address] Dr. Ibis Jimenez Color (U) YELLOW Normal YELLOW [facility] Comment on above: Performed By: #### C VDTBH #### [facility] [address] [place] [address] Dr. Ibis LOZOYAAHKishan A micrscopic examination will be performed if indicated. Normal [facility] Comment on above: Performed By: #### C VDTBH #### [facility] [address] [place] [address] Dr. Ibis Jimenez Glucose Ql (U) Negative Normal NEGATIVE [facility] Comment on above: Performed By: #### C VDTBH #### [facility] [address] [place] [address] Dr. Ibis Jimenez Hemoglobin Ql (U) Negative Normal NEGATIVE [facility] Comment on above: Performed By: #### C VDTBH #### [facility] [address] [place] [address] Dr. Ibis Jimenez Ketones Ql (U) Negative Normal NEGATIVE [facility] Comment on above: Performed By: #### C VDTBH #### [facility] [address] [place] [address] Dr. Ibis Jimenez LEUKOCYTES Negative Normal NEGATIVE [facility] Comment on above: Performed By: #### C VDTBH #### [facility] [address] [place] [address] Dr. Ibis Jimenez Nitrite Ql (U) Negative Normal NEGATIVE [facility] Comment on above: Performed By: #### C VDTBH #### [facility] [address] [place] [address] Dr. Ibis Jimenez pH (U) 6.0 [pH] Normal 5-9 [facility] Comment on above: Performed By: #### C VDTBH #### [facility] [address] [place] [address] Dr. Ibis Jimenez SPEC GRAVITY 1.025 Normal 1.005-<=1.02 5 [facility] Comment on above: Performed By: #### C VDTBH #### [facility] [address] [place] [address] Dr. Ibis Jimenez UA PROTEIN Negative Normal NEGATIVE/ TRACE [facility] Comment on above: Performed By: #### C VDTBH #### [facility] [address] [place] [address] Dr. Ibis Jimenez UR MICRO IND NOT INDICATED Normal [facility] Comment on above: Performed By: #### C VDTBH #### [facility] [address] [place] [address] Dr. Ibis Jimenez Urobilinogen Qn (U) 0.2 {Dinorah'U}/dL Normal 0.2 - 1. 0 [facility] Comment on above: Performed By: #### C VDTBH #### [facility] [address] [place] [address] Dr. Ibis Jimenez CBC AUTO DIFFon 10-03-2021 BASO # 0.0 103/ul Normal 0.0-0.1 [facility] Comment on above: Performed By: #### B MP #### [facility] [address] [place] [address] Dr. Ibis Jimenez Basophils/100 WBC (Bld) 0.3 % Normal 0.2-2.0 [facility] Comment on above: Performed By: #### B MP #### [facility] [address] [place] [address] Dr. Ibis Jimenez EO # 0.3 103/ul Normal 0.0-0.7 [facility] Comment on above: Performed By: #### B MP #### [facility] [address] [place] [address] Dr. Ibis Jimenez Eosinophils/100 WBC (Bld) 4.1 % Normal 0.9-7.0 [facility] Comment on above: Performed By: #### B MP #### [facility] [address] [place] [address] Dr. Ibis Jimenez Erythrocyte distribution width (RBC) [Ratio] 13.2 % Normal 11.0-15.0 [facility] Comment on above: Performed By: #### B MP #### [facility] [address] [place] [address] Dr. Ibis Jimenez Hematocrit (Bld) [Volume fraction] 35.7 % Critically low 36.0-48.0 [facility] Comment on above: Performed By: #### B MP #### [facility] [address] [place] [address] Dr. Ibis Jimenez Hemoglobin (Bld) [Mass/Vol] 11.6 g/dL Critically low 12.0-16.0 [facility] Comment on above: Performed By: #### B MP #### [facility] [address] [place] [address] Dr. Ibis Jimenez IG # 0.02 10e3/ul Normal 0.00-0.03 [facility] Comment on above: Performed By: #### B MP #### [facility] [address] [place] [address] Dr. Ibis Jimenez IG % 0.3 % Normal 0.0-0.5 [facility] Comment on above: Performed By: #### B MP #### [facility] [address] [place] [address] Dr. Ibis Jimneez LYMPH # 1.5 103/ul Normal 1.2-3.8 [facility] Comment on above: Performed By: #### B MP #### [facility] [address] [place] [address] Dr. Ibis Jimenez Lymphocytes/100 WBC (Bld) 24.3 % Normal 20.5-60.0 [facility] Comment on above: Performed By: #### B MP #### [facility] [address] [place] [address] Dr. Ibis Jimenez MANUAL DIFF REQ NO Normal [facility] Comment on above: Performed By: #### B MP #### [facility] [address] [place] [address] Dr. Ibis Jimenez MCH (RBC) [Entitic mass] 28.9 pg Normal 26.7-34.0 [facility] Comment on above: Performed By: #### B MP #### [facility] [address] [place] [address] Dr. Ibis Jimenez MCHC (RBC) [Mass/Vol] 32.5 g/dL Normal 29.9-35.2 [facility] Comment on above: Performed By: #### B MP #### [facility] [address] [place] [address] Dr. Ibis Jimenez MCV (RBC) [Entitic vol] 89.0 fL Normal 81.0-99.0 [facility] Comment on above: Performed By: #### B MP #### [facility] [address] [place] [address] Dr. Ibis Jimenez MONO # 0.5 103/ul Normal 0.3-0.8 [facility] Comment on above: Performed By: #### B MP #### [facility] [address] [place] [address] Dr. Ibis Jimenez Monocytes/100 WBC (Bld) 7.3 % Normal 1.7-12.0 [facility] Comment on above: Performed By: #### B MP #### [facility] [address] [place] [address] Dr. Ibis Jimenez NEUT # 4.0 103/ul Normal 1.4-6.5 [facility] Comment on above: Performed By: #### B MP #### [facility] [address] [place] [address] Dr. Ibis Jimenez Neutrophils/100 WBC (Bld) 63.7 % Normal 43.0-75.0 [facility] Comment on above: Performed By: #### B MP #### [facility] [address] [place] [address] Dr. Ibis Jimenez Platelet mean volume (Bld) [Entitic vol] 9.7 fL Normal 9.5-13.5 [facility] Comment on above: Performed By: #### B MP #### [facility] [address] [place] [address] Dr. Ibis Jimenez PLT 237 103/ul Normal 150-450 [facility] Comment on above: Performed By: #### B MP #### [facility] [address] [place] [address] Dr. Ibis Jimenez RBC 4.01 106/ul Critically low 4.20-5.40 [facility] Comment on above: Performed By: #### B MP #### [facility] [address] [place] [address] Dr. Ibis Jimenez WBC 6.3 103/ul Normal 4.0-11.0 [facility] Comment on above: Performed By: #### B MP #### [facility] [address] [place] [address] Dr. Ibis Jimenez LACTATE/LACTIC ACIDon 2021 Lactate [Moles/Vol] 1.2 mmol/L Normal 0.4-1.9 [facility] Comment on above: Performed By: #### A MM #### [facility] [address] [place] [address] Dr. Ibis Jimenez BUNon 10-02-2021 Urea nitrogen [Mass/Vol] 7.0 mg/dL Normal 7.0-18.0 [facility] Comment on above: Performed By: #### C VDTBH #### [facility] [address] [place] [address] Dr. Ibis Jimenez CBC AUTO DIFFon 10-02-2021 BASO # 0.0 103/ul Normal 0.0-0.1 [facility] Comment on above: Performed By: #### A MM #### [facility] [address] [place] [address] Dr. Ibis Jimenez Basophils/100 WBC (Bld) 0.2 % Normal 0.2-2.0 [facility] Comment on above: Performed By: #### A MM #### [facility] [address] [place] [address] Dr. Ibis Jimenez EO # 0.0 103/ul Normal 0.0-0.7 [facility] Comment on above: Performed By: #### A MM #### [facility] [address] [place] [address] Dr. Ibis Jimenez Eosinophils/100 WBC (Bld) 0.3 % Critically low 0.9-7.0 [facility] Comment on above: Performed By: #### A MM #### [facility] [address] [place] [address] Dr. Ibis Jimenez Erythrocyte distribution width (RBC) [Ratio] 12.7 % Normal 11.0-15.0 [facility] Comment on above: Performed By: #### A MM #### [facility] [address] [place] [address] Dr. Ibis Jimenez Hematocrit (Bld) [Volume fraction] 43.4 % Normal 36.0-48.0 [facility] Comment on above: Performed By: #### A MM #### [facility] [address] [place] [address] Dr. Ibis Jimenez Hemoglobin (Bld) [Mass/Vol] 14.6 g/dL Normal 12.0-16.0 [facility] Comment on above: Performed By: #### A MM #### [facility] [address] [place] [address] Dr. Ibis Jimenez IG # 0.03 10e3/ul Normal 0.00-0.03 [facility] Comment on above: Performed By: #### A MM #### [facility] [address] [place] [address] Dr. Ibis Jimenez IG % 0.3 % Normal 0.0-0.5 [facility] Comment on above: Performed By: #### A MM #### [facility] [address] [place] [address] Dr. Ibis Jimenez LYMPH # 1.2 103/ul Normal 1.2-3.8 [facility] Comment on above: Performed By: #### A MM #### [facility] [address] [place] [address] Dr. Ibis Jimenez Lymphocytes/100 WBC (Bld) 11.6 % Critically low 20.5-60.0 [facility] Comment on above: Performed By: #### A MM #### [facility] [address] [place] [address] Dr. Ibis Jimenez MANUAL DIFF REQ NO Normal [facility] Comment on above: Performed By: #### A MM #### [facility] [address] [place] [address] Dr. Ibis Jimenez MCH (RBC) [Entitic mass] 28.5 pg Normal 26.7-34.0 [facility] Comment on above: Performed By: #### A MM #### [facility] [address] [place] [address] Dr. Ibis Jimenez MCHC (RBC) [Mass/Vol] 33.6 g/dL Normal 29.9-35.2 [facility] Comment on above: Performed By: #### A MM #### [facility] [address] [place] [address] Dr. Ibis Jimenez MCV (RBC) [Entitic vol] 84.6 fL Normal 81.0-99.0 [facility] Comment on above: Performed By: #### A MM #### [facility] [address] [place] [address] Dr. Ibis Jimenez MONO # 0.6 103/ul Normal 0.3-0.8 [facility] Comment on above: Performed By: #### A MM #### [facility] [address] [place] [address] Dr. Ibis Jimenez Monocytes/100 WBC (Bld) 5.9 % Normal 1.7-12.0 [facility] Comment on above: Performed By: #### A MM #### [facility] [address] [place] [address] Dr. Ibis Jimenez NEUT # 8.2 103/ul Critically high 1.4-6.5 [facility] Comment on above: Performed By: #### A MM #### [facility] [address] [place] [address] Dr. Ibis Jimenez Neutrophils/100 WBC (Bld) 81.7 % Critically high 43.0-75.0 [facility] Comment on above: Performed By: #### A MM #### [facility] [address] [place] [address] Dr. Ibis Jimenez Platelet mean volume (Bld) [Entitic vol] 9.8 fL Normal 9.5-13.5 [facility] Comment on above: Performed By: #### A MM #### [facility] [address] [place] [address] Dr. Ibis Jimenez PLT 264 103/ul Normal 150-450 [facility] Comment on above: Performed By: #### A MM #### [facility] [address] [place] [address] Dr. Ibis Jimenez RBC 5.13 106/ul Normal 4.20-5.40 [facility] Comment on above: Performed By: #### A MM #### [facility] [address] [place] [address] Dr. Ibis Jimenez WBC 10.1 103/ul Normal 4.0-11.0 [facility] Comment on above: Performed By: #### A MM #### [facility] [address] [place] [address] Dr. Ibis Jimenez CREATININEon 10-02-2021 Creatinine [Mass/Vol] 0.69 mg/dL Normal 0.55-1.02 [facility] Comment on above: Performed By: #### C VDTBH #### [facility] [address] [place] [address] Dr. Ibis Jimenez EGFR-AF BARBADIAN >60 Normal >=60 [facility] Comment on above: Performed By: #### C VDTBH #### [facility] [address] [place] [address] Dr. Ibis Jimenez EGFR-NON AF BAR[place]IAN >60 Normal >=60 [facility] Comment on above: Performed By: #### C VDTBH #### [facility] [address] [place] [address] Dr. Ibis Jimenez CBC AUTO DIFFon 10-01-2021 BASO # 0.0 103/ul Normal 0.0-0.1 [facility] Comment on above: Performed By: #### A MM #### [facility] [address] [place] [address] Dr. Ibis Jimenez Basophils/100 WBC (Bld) 0.3 % Normal 0.2-2.0 [facility] Comment on above: Performed By: #### A MM #### [facility] [address] [place] [address] Dr. Ibis Jimenez EO # 0.1 103/ul Normal 0.0-0.7 [facility] Comment on above: Performed By: #### A MM #### [facility] [address] [place] [address] Dr. Ibis Jimenez Eosinophils/100 WBC (Bld) 1.9 % Normal 0.9-7.0 [facility] Comment on above: Performed By: #### A MM #### [facility] [address] [place] [address] Dr. Ibis Jimenez Erythrocyte distribution width (RBC) [Ratio] 12.7 % Normal 11.0-15.0 [facility] Comment on above: Performed By: #### A MM #### [facility] [address] [place] [address] Dr. Ibis Jimenez Hematocrit (Bld) [Volume fraction] 38.1 % Normal 36.0-48.0 [facility] Comment on above: Performed By: #### A MM #### [facility] [address] [place] [address] Dr. Ibis Jimenez Hemoglobin (Bld) [Mass/Vol] 12.7 g/dL Normal 12.0-16.0 [facility] Comment on above: Performed By: #### A MM #### [facility] [address] [place] [address] Dr. Ibis Jimenez IG # 0.02 10e3/ul Normal 0.00-0.03 [facility] Comment on above: Performed By: #### A MM #### [facility] [address] [place] [address] Dr. Ibis Jimenez IG % 0.3 % Normal 0.0-0.5 [facility] Comment on above: Performed By: #### A MM #### [facility] [address] [place] [address] Dr. Ibis Jimenez LYMPH # 1.9 103/ul Normal 1.2-3.8 [facility] Comment on above: Performed By: #### A MM #### [facility] [address] [place] [address] Dr. Ibis Jimenez Lymphocytes/100 WBC (Bld) 30.5 % Normal 20.5-60.0 [facility] Comment on above: Performed By: #### A MM #### [facility] [address] [place] [address] Dr. Ibis Jimenez MANUAL DIFF REQ NO Normal [facility] Comment on above: Performed By: #### A MM #### [facility] [address] [place] [address] Dr. Ibis Jimenez MCH (RBC) [Entitic mass] 28.3 pg Normal 26.7-34.0 [facility] Comment on above: Performed By: #### A MM #### [facility] [address] [place] [address] Dr. Ibis Jimenez MCHC (RBC) [Mass/Vol] 33.3 g/dL Normal 29.9-35.2 [facility] Comment on above: Performed By: #### A MM #### [facility] [address] [place] [address] Dr. Ibis Jimenez MCV (RBC) [Entitic vol] 85.0 fL Normal 81.0-99.0 [facility] Comment on above: Performed By: #### A MM #### [facility] [address] [place] [address] Dr. Ibis Jimenez MONO # 0.3 103/ul Normal 0.3-0.8 [facility] Comment on above: Performed By: #### A MM #### [facility] [address] [address] [address] Ibis Jimenez Monocytes/100 WBC (Bld) 5.2 % Normal 1.7-12.0 [facility] Comment on above: Performed By: #### A MM #### [facility] [address] [address] [address] Ibis Jimenez NEUT # 3.9 103/ul Normal 1.4-6.5 [facility] Comment on above: Performed By: #### A MM #### [facility] [address] [address] [address] Ibis Jimenez Neutrophils/100 WBC (Bld) 61.8 % Normal 43.0-75.0 [facility] Comment on above: Performed By: #### A MM #### [facility] [address] [place] [address] Dr. Ibis Jimenez Platelet mean volume (Bld) [Entitic vol] 9.7 fL Normal 9.5-13.5 [facility] Comment on above: Performed By: #### A MM #### [facility] [address] [place] [address] Dr. Ibis Jimenez PLT 255 103/ul Normal 150-450 [facility] Comment on above: Performed By: #### A MM #### [facility] [address] [place] [address] Dr. Ibis Jimenez RBC 4.48 106/ul Normal 4.20-5.40 [facility] Comment on above: Performed By: #### A MM #### [facility] [address] [place] [address] Dr. bIis Jimenez WBC 6.3 103/ul Normal 4.0-11.0 [facility] Comment on above: Performed By: #### A MM #### [facility] [address] [place] [address] Dr. Ibis Jimenez PREG HCG QUALon 10-01-2021 , QUAL Negative Normal NEGATIVE [facility] Comment on above: Performed By: #### M DAVID #### [facility] [address] [address] [address] Ibis Jimenez Covid-19 PCR (CVDTB)on 09-20 SARS-CoV-2 (COVID-19) RNA SAURABH+probe Ql (Unsp spec) Not detected Normal NOT DETECTED [facility] Comment on above: Result Comment: This test is not yet approved or cleared by the [place] FDA. When there are no FDA-approved or cleared tests available, and other criteria are met, FDA can make tests available under an emergency access mechanism called an Emergency Use Authorization (EUA). The EUA for this test is supported by the [place] of Health and Human Service's (HHS's) declaration [...] SARS-CoV-2. Performed By: #### B MP #### [facility] [address] [place] [address] Dr. Ibis Jimenez TYPE AND SCREENon 09-29-2021 TYPE AND SCREEN Negative Normal [facility] Comment on above: Performed By: #### B MP #### [facility] [address] [place] [address] Dr. Ibis Jimenez Covid-19 PCR (CVDTBH)on SARS-CoV-2 (COVID-19) RNA SAURABH+probe Ql (Unsp spec) Not detected Normal NOT DETECTED [facility] Comment on above: Result Comment: This test is not yet approved or cleared by the [place] FDA. When there are no FDA-approved or cleared tests available, and other criteria are met, FDA can make tests available under an emergency access mechanism called an Emergency Use Authorization (EUA). The EUA for this test is supported by the [place] of Health and Human Service's (HHS's) declaration [...] consistent with SARS-CoV-2. Performed By: #### C VDTBH #### [facility] [address] [place] [address] Dr. Ibis Jimenez TYPE AND SCREENon 09-21-2021 TYPE AND SCREEN Negative Normal [facility] Comment on above: Performed By: #### B MP #### [facility] [address] [place] [address] Dr. Ibis Jimenez CHLAMYDIA/GONOCOCCUS SAURABH (SW AB/URINE/PAPon 08-17-2021 Chlamydia trachomatis, SAURABH Negative Normal Negative [facility] Comment on above: Performed By: #### A CET, SALYC #### [facility] [address] [place] [address] Dr. Ibis Jimenez Neisseria gonorrhoeae, SAURABH Negative Normal Negative [facility] Comment on above: Performed By: #### A CET, SALYC #### [facility] [address] [place] [address] Dr. Ibis Jimenez CBC AUTO DIFFon 08-14-2021 BASO # 0.0 103/ul Normal 0.0-0.1 [facility] Comment on above: Performed By: #### C VDTBH #### [facility] [address] [place] [address] Dr. Ibis Jimenez Basophils/100 WBC (Bld) 0.3 % Normal 0.2-2.0 [facility] Comment on above: Performed By: #### C VDTBH #### [facility] [address] [place] [address] Dr. Ibis Jimenez EO # 0.2 103/ul Normal 0.0-0.7 [facility] Comment on above: Performed By: #### C VDTBH #### [facility] [address] [place] [address] Dr. Ibis Jimenez Eosinophils/100 WBC (Bld) 2.5 % Normal 0.9-7.0 [facility] Comment on above: Performed By: #### C VDTBH #### [facility] [address] [place] [address] Dr. Ibis Jimenez Erythrocyte distribution width (RBC) [Ratio] 13.0 % Normal 11.0-15.0 [facility] Comment on above: Performed By: #### C VDTBH #### [facility] [address] [place] [address] Dr. Ibis Jimenez Hematocrit (Bld) [Volume fraction] 38.1 % Normal 36.0-48.0 [facility] Comment on above: Performed By: #### C VDTBH #### [facility] [address] [place] [address] Dr. Ibis Jimenez Hemoglobin (Bld) [Mass/Vol] 12.8 g/dL Normal 12.0-16.0 [facility] Comment on above: Performed By: #### C VDTBH #### [facility] [address] [place] [address] Dr. Ibis Jimenez IG # 0.02 10e3/ul Normal 0.00-0.03 [facility] Comment on above: Performed By: #### C VDTBH #### [facility] [address] [place] [address] Dr. Ibis Jimenez IG % 0.3 % Normal 0.0-0.5 [facility] Comment on above: Performed By: #### C VDTBH #### [facility] [address] [place] [address] Dr. Ibis Jimenez LYMPH # 1.5 103/ul Normal 1.2-3.8 [facility] Comment on above: Performed By: #### C VDTBH #### [facility] [address] [place] [address] Dr. Ibis Jimenez Lymphocytes/100 WBC (Bld) 22.5 % Normal 20.5-60.0 [facility] Comment on above: Performed By: #### C VDTBH #### [facility] [address] [place] [address] Dr. Ibis Jimenze MANUAL DIFF REQ NO Normal [facility] Comment on above: Performed By: #### C VDTBH #### [facility] [address] [place] [address] Dr. Ibis Jimenez MCH (RBC) [Entitic mass] 28.6 pg Normal 26.7-34.0 [facility] Comment on above: Performed By: #### C VDTBH #### [facility] [address] [place] [address] Dr. Ibis Jimenez MCHC (RBC) [Mass/Vol] 33.6 g/dL Normal 29.9-35.2 [facility] Comment on above: Performed By: #### C VDTBH #### [facility] Laboratory [address] [place] [address] Dr. Ibis Jimenez MCV (RBC) [Entitic vol] 85.0 fL Normal 81.0-99.0 [facility] Comment on above: Performed By: #### C VDTBH #### [facility] [address] [place] [address] Dr. Ibis Jimenez MONO # 0.4 103/ul Normal 0.3-0.8 [facility] Comment on above: Performed By: #### C VDTBH #### [facility] [address] [place] [address] Dr. Ibis Jimenez Monocytes/100 WBC (Bld) 6.3 % Normal 1.7-12.0 [facility] Comment on above: Performed By: #### C VDTBH #### [facility] [address] [place] [address] Dr. Ibis Jimenez NEUT # 4.6 103/ul Normal 1.4-6.5 [facility] Comment on above: Performed By: #### C VDTBH #### [facility] [address] [place] [address] Dr. Ibis Jimenez Neutrophils/100 WBC (Bld) 68.1 % Normal 43.0-75.0 [facility] Comment on above: Performed By: #### C VDTBH #### [facility] [address] [place] [address] Dr. Ibis Jimenez Platelet mean volume (Bld) [Entitic vol] 9.8 fL Normal 9.5-13.5 [facility] Comment on above: Performed By: #### C VDTBH #### [facility] [address] [place] [address] Dr. Ibis Jimenez PLT 243 103/ul Normal 150-450 [facility] Comment on above: Performed By: #### C VDTBH #### [facility] [address] [place] [address] Dr. Ibis Jimenez RBC 4.48 106/ul Normal 4.20-5.40 [facility] Comment on above: Performed By: #### C VDTBH #### [facility] [address] [place] [address] Dr. Ibis Jimenez WBC 6.7 103/ul Normal 4.0-11.0 [facility] Comment on above: Performed By: #### C VDTBH #### [facility] [address] [place] [address] ABD/PELVIS WO CONon 08-14 CT ABD/PELVIS WO CON TECHNIQUE: CT abdomen and pelvis. Helically acquired axial images of [...] NELI COTTO Date: 2021-08-14 18:00 Normal [facility] ER URINE PROFILEon 2 Bilirubin Ql (U) SMALL Abnormal NEGATIVE [facility] Comment on above: Performed By: #### B MP #### [facility] [address] [place] [address] Dr. Ibis Jimenez Clarity (U) CLEAR Normal CLEAR [facility] Comment on above: Performed By: #### B MP #### [facility] [address] [place] [address] Dr. Ibis Jimenez Color (U) YELLOW Normal YELLOW [facility] Comment on above: Performed By: #### B MP #### [facility] [address] [place] [address] Dr. Ibis Jimenez ERUAHD A micrscopic examination will be performed if indicated. Normal [facility] Comment on above: Performed By: #### B MP #### [facility] [address] [place] [address] Dr. Ibis Jimenez Glucose Ql (U) Negative Normal NEGATIVE [facility] Comment on above: Performed By: #### B MP #### [facility] [address] [place] [address] Dr. Ibis Jimenez Hemoglobin Ql (U) SMALL Abnormal NEGATIVE [facility] Comment on above: Performed By: #### B MP #### [facility] [address] [place] [address] Dr. Ibis Jimenez Ketones Ql (U) TRACE Abnormal NEGATIVE [facility] Comment on above: Performed By: #### B MP #### [facility] [address] [place] [address] Dr. Ibis Jimenez LEUKOCYTES Negative Normal NEGATIVE [facility] Comment on above: Performed By: #### B MP #### [facility] [address] [place] [address] Dr. Ibis Jimenez Nitrite Ql (U) Negative Normal NEGATIVE [facility] Comment on above: Performed By: #### B MP #### [facility] [address] [address] [address] Ibis Jimenez pH (U) 5.5 [pH] Normal 5-9 [facility] Comment on above: Performed By: #### B MP #### [facility] [address] [place] [address] Dr. Ibis Jimenez SPEC GRAVITY >=1.030 Abnormal 1.005-<=1.02 5 [facility] Comment on above: Performed By: #### B MP #### [facility] [address] [place] [address] Dr. Ibis Jimenez UA PROTEIN TRACE Normal NEGATIVE/ TRACE [facility] Comment on above: Performed By: #### B MP #### [facility] [address] [place] [address] Dr. Ibis Jimenez UR MICRO IND INDICATED Normal [facility] Comment on above: Performed By: #### B MP #### [facility] [address] [place] [address] Dr. Ibis Jimenez Urobilinogen Qn (U) 1.0 {Dinorah'U}/dL Normal 0.2 - 1. 0 [facility] Comment on above: Performed By: #### B MP #### [facility] [address] [place] [address] Dr. Ibis Jimenez URon 08-14-2021 , QUAL Negative Normal NEGATIVE [facility] Comment on above: Performed By: #### B MP #### [facility] [address] [place] [address] Dr. Ibis Jimenez PROF CHEM 8 (BAS METB)on Anion gap [Moles/Vol] 15.3 mmol/L Normal [facility] Comment on above: Performed By: #### B MP #### [facility] [address] [place] [address] Dr. Ibis Jimenez Calcium [Mass/Vol] 8.4 mg/dL Critically low 8.5-10.1 [facility] Comment on above: Performed By: #### B MP #### [facility] [address] [place] [address] Dr. Ibis Jimenez Chloride [Moles/Vol] 106 mmol/L Normal 98-107 [facility] Comment on above: Performed By: #### B MP #### [facility] [address] [place] [address] Dr. Ibis Jimenez CO2 [Moles/Vol] 22.3 mmol/L Normal 21.0-32.0 [facility] Comment on above: Performed By: #### B MP #### [facility] [address] [place] [address] Dr. Ibis Jimenez Creatinine [Mass/Vol] 0.75 mg/dL Normal 0.55-1.02 [facility] Comment on above: Performed By: #### B MP #### [facility] [address] [place] [address] Dr. Ibis Jimenez EGFR-AF BARBADIAN >60 Normal >=60 [facility] Comment on above: Performed By: #### B MP #### [facility] [address] [place] [address] Dr. Ibis Jimenez EGFR-NON AF BARBADIAN >60 Normal >=60 [facility] Comment on above: Performed By: #### B MP #### [facility] [address] [place] [address] Dr. Ibis Jimenez Glucose [Mass/Vol] 107 mg/dL Critically high 74-106 [facility] Comment on above: Performed By: #### B MP #### [facility] [address] [place] [address] Dr. Ibis Jimenez Potassium [Moles/Vol] 3.6 mmol/L Normal 3.5-5.1 [facility] Comment on above: Performed By: #### B MP #### [facility] [address] [place] [address] Dr. Ibis Jimenez Sodium [Moles/Vol] 140 mmol/L Normal 136-145 [facility] Comment on above: Performed By: #### B MP #### [facility] [address] [place] [address] Dr. Ibis Jimenez Urea nitrogen [Mass/Vol] 13.0 mg/dL Normal 7.0-18.0 [facility] Comment on above: Performed By: #### B MP #### [facility] [address] [place] [address] Dr. Ibis Jimenez Urea nitrogen/Creatinine [Mass ratio] 17.3 mg/mg Normal [facility] Comment on above: Performed By: #### B MP #### [facility] [address] [place] [address] Dr. Ibis Jimenez URINE MICROSCOPIC ONLYon BACTERIA TRACE Abnormal NONE SEEN [facility] Comment on above: Performed By: #### B MP #### [facility] [address] [place] [address] Dr. Ibis Jimenez Bacteria identified Cx Nom (U) NOT INDICATED Normal [facility] Comment on above: Performed By: #### B MP #### [facility] [address] [place] [address] Dr. Ibis Jimenez CAST NONE SEEN Normal NONE SEEN [facility] Comment on above: Performed By: #### B MP #### [facility] [address] [place] [address] Dr. Ibis Jimenez Crystals LM Nom (Urine sed) NONE SEEN Normal NONE SEEN [facility] Comment on above: Performed By: #### B MP #### [facility] [address] [place] [address] Dr. Ibis Jimenez Epithelial cells LM Ql (Urine sed) MANY Abnormal NONE SEEN /RARE [facility] Comment on above: Performed By: #### B MP #### [facility] [address] [place] [address] Dr. Ibis Jimenez MUCOUS SMALL Abnormal NONE SEEN [facility] Comment on above: Performed By: #### B MP #### [facility] [address] [place], [place] [address] Dr. Ibis Jimenez RBC 2-5 Abnormal 0-2 [facility] Comment on above: Performed By: #### B MP #### [facility] [address] [place], [place] [address] Dr. Ibis Jimenez WBC 2-5 Abnormal NONE SEEN [facility] Comment on above: Performed By: #### B MP #### [facility] [address] [place], [place] [address] Dr. Ibis Jimenez CBC Auto DifferentialOrdered By: Vielka Ching on 12-24-2020 [employer] # 0.44 [employer] [facility] Work Phone: Absolute Immature Granulocyte 0.05 [employer] Work Phone: [employer] Lymph # 2.48 [employer] [facility] Work Phone: [employer] [place] # 0.55 [facility] Work Phone: Basophils (Bld) [#/Vol] 10*3/uL [employer] Work Phone: Basophils/100 WBC (Bld) 0 % 0 - 2 % [employer] Work Phone: Differential Type NOT REPORTED [employer] Phone: Eosinophils/100 WBC (Bld) 5 % High 1 - 4 % [employer] Phone: Hematocrit (Bld) [Volume fraction] 37.4 % 36.3 - 47.1 % [employer] Work Phone: Hemoglobin.gastrointest inal spec 1 Ql (Stl) 12.3 g/dL 11.9 - 15.1 g/dL [employer] Work Phone: Immature granulocytes/100 WBC (Bld) 1 % High 0 [employer] Work Phone: Interpretation and review of laboratory results Abnormal [employer] Phone: Lymphocytes/100 WBC (Bld) 30 % 24 - 43 % [employer] Phone: MCH (RBC) [Entitic mass] 28.5 pg 25.2 - 33.5 pg [employer] Phone: MCHC (RBC) [Mass/Vol] 32.9 g/dL 28.4 - 34.8 g/dL [employer] Phone: MCV (RBC) [Entitic vol] 86.8 fL 82.6 - 102.9 fL [employer] Phone: Monocytes/100 WBC (Bld) 7 % 3 - 12 % [employer] Phone: NRBC Automated 0.0 0.0 per 100 WBC [employer] Phone: Platelet distribution width (Bld) [Ratio] 12.7 % 11.8 - 14.4 % [employer] Phone: Platelet Estimate NOT REPORTED [employer] Phone: Platelet mean volume (Bld) [Entitic vol] 9.4 fL 8.1 - 13.5 fL [employer] Phone: Platelets (Bld) [#/Vol] 252 10*3/uL [employer] Phone: RBC (Bld) [#/Vol] 4.31 10*6/uL 3.95 - 5.1 1 m/uL [employer] Work Phone: RBC (Bld) [#/Vol] NOT REPORTED [employer] Phone: Segmented neutrophils/100 WBC (Bld) 57 % 36 - 65 % [employer] Phone: Segs Absolute 4.78 [employer] Work Phone: WBC (Bld) [#/Vol] 8.3 10*3/uL [employer] Phone: WBC (Bld) [#/Vol] NOT REPORTED [employer] Phone: [facility] Work Phone: CBC with Diffon 12-24-2020 Abs. Basophil <0.03 Normal 0.00-0.20 [facility] Comment on above: Performed By: #### C MPX, CDP #### [address] [place], [place] [id number] New [employer] Interviewer: Souleymane Pineda MD Abs.Imm.Granulocyte 0.05 k/uL Normal 0.00-0.30 [facility] Comment on above: Performed By: #### C MPX, CDP #### [address] [place], [place] [id number] New Account Interviewer: Souleymane Pineda MD Abs.Neutrophil (Seg) 4.78 k/uL Normal 1.50-8.[address] [facility] Comment on above: Performed By: #### C MPX, CDP #### [address] [place], [place] [id number] New Account Interviewer: Souleymane Pineda MD Basophils/100 WBC (Bld) 0 % Normal 0-2 [facility] Comment on above: Performed By: #### C MPX, CDP #### [address] [place] [address] New Account Interviewer: Souleymane Pineda MD Eosinophils (Bld) [#/Vol] 0.44 10*3/uL Normal 0.00-0.44 [facility] Comment on above: Performed By: #### C MPX, CDP #### [address] [place], [place] [id number] New Account Interviewer: Souleymane Pineda MD Eosinophils/100 WBC (Bld) 5 % High 1-4 [facility] Comment on above: Performed By: #### C MPX, CDP #### [address] [place] [address] New Account Interviewer: Souleymane Pineda MD Erythrocyte distribution width (RBC) [Ratio] 12.7 % Normal 11.8-14.4 [facility] Comment on above: Performed By: #### C MPX, CDP #### [facility] [address] [place] [address] New Account Interviewer: Souleymane Pineda MD Hematocrit (Bld) [Volume fraction] 37.4 % Normal 36.3-47.1 [facility] Comment on above: Performed By: #### C MPX, CDP #### [facility] [address] [place] [address] New Account Interviewer: Souleymane Pineda MD Hemoglobin (Bld) [Mass/Vol] 12.3 g/dL Normal 11.9-15.1 [facility] Comment on above: Performed By: #### C MPX, CDP #### [facility] [address] [place] [address] Dr[address] [place], [place] [id number] New Account Interviewer: Souleymane Pineda MD Immature granulocytes/100 WBC (Bld) 1 % High 0 [facility] Comment on above: Performed By: #### C MPX, CDP #### [address] [place], [place] [id number] New Account Interviewer: Souleymane Pineda MD Lymphocytes (Bld) [#/Vol] 2.48 10*3/uL Normal 1.10-3.70 [facility] Comment on above: Performed By: #### C MPX, CDP #### [facility] [address] [place] [address] New Account Interviewer: Souleymane Pineda MD Lymphocytes/100 WBC (Bld) 30 % Normal 24-43 [facility] Comment on above: Performed By: #### C MPX, CDP #### [facility] [address] [place] [address] New Account Interviewer: Souleymane Pineda MD MCH (RBC) [Entitic mass] 28.5 pg Normal 25.2-33.5 [facility] Comment on above: Performed By: #### C MPX, CDP #### [facility] [address] [place] [address] New Account Interviewer: Souleymane Pineda MD MCHC (RBC) [Mass/Vol] 32.9 g/dL Normal 28.4-34.8 [facility] Comment on above: Performed By: #### C MPX, CDP #### [address] [place] [address] New Account Interviewer: Souleymane Pineda MD MCV (RBC) [Entitic vol] 86.8 fL Normal 82.6-102.9 [facility] Comment on above: Performed By: #### C MPX, CDP #### [address] [place] [address] New Account Interviewer: Souleymane Pineda MD Monocytes (Bld) [#/Vol] 0.55 10*3/uL Normal 0.10-1.20 [facility] Comment on above: Performed By: #### C MPX, CDP #### [address] [place], [place] [id number] New Account Interviewer: Souleymane Pineda MD Monocytes/100 WBC (Bld) 7 % Normal 3-12 [facility] Comment on above: Performed By: #### C MPX, CDP #### [address] [place] [address] New Account Interviewer: Souleymane Pineda MD Neutrophil (Seg) 57 % Normal 36-65 [facility] Comment on above: Performed By: #### C MPX, CDP #### [facility] [address] [place] [address] New Account Interviewer: Souleymane Pineda MD NRBC Automated 0.0 per 100 WBC Normal 0.0 [facility] Comment on above: Performed By: #### C MPX, CDP #### [facility] [address] [place], [place] [id number] New Account Interviewer: Souleymane Pineda MD Platelet mean volume (Bld) [Entitic vol] 9.4 fL Normal 8.1-13.5 [facility] Comment on above: Performed By: #### C MPX, CDP #### [facility] [address] [place], [place] [id number] New Account Interviewer: Souleymane Pineda MD Platelets (Bld) [#/Vol] 252 10*3/uL Normal 138-453 [facility] Comment on above: Performed By: #### C MPX, CDP #### [address] [place], [place] [id number] New Account Interviewer: Souleymane Pineda MD RBC (Bld) [#/Vol] 4.31 10*6/uL Normal 3.95-5.11 [facility] Comment on above: Performed By: #### C MPX, CDP #### [address] [place], [place] [id number] New Account Interviewer: Souleymane Pineda MD WBC (Bld) [#/Vol] 8.3 10*3/uL Normal 3.5-11.3 [facility] Comment on above: Performed By: #### C MPX, CDP #### [address] [place], [place] [id number] New Account Interviewer: Souleymane Pineda MD Auto Diff Performed NOT REPORTED Normal [facility] Comment on above: Performed By: #### C MPX, CDP #### [facility] [address] [place], [place] [id number] New Account Interviewer: Souleymane Pineda MD Platelet Comment NOT REPORTED Normal [facility] Comment on above: Performed By: #### C MPX, CDP #### [facility] [address] [place], [place] [id number] New Account Interviewer: Souleymane Pineda MD RBC morphology finding Nom (Bld) NOT REPORTED Normal [facility] Comment on above: Performed By: #### C MPX, CDP #### [facility] [address] [place] [address] New Account Interviewer: Souleymane Pineda MD WBC Morphology NOT REPORTED Normal [facility] Comment on above: Performed By: #### C MPX, CDP #### [facility] [address] [place] [address] New Account Interviewer: Souleymane Pineda MD CT HEAD WO CONTRASTon [...] not a suspected or confirmed emergency medical condition->Emergenc y Medical Condition (MA) Is the patient ?->No FINDINGS: BRAIN/VENTRICLES: There is no acute intracranial hemorrhage, mass effect or midline shift. No abnormal extra-axial fluid collection. The antonio-white differentiation is maintained without evidence of an acute infarct. There is no evidence of hydrocephalus. ORBITS: The visualized portion of the orbits demonstrate no acute abnormality. SINUSES: Saze-bu-dpqdukdl paranasal sinus mucosal thickening. SOFT TISSUES/SKULL: No acute abnormality of the visualized skull or soft tissues. IMPRESSION: No acute intracranial abnormality. Interpreted by: Edwin Bentley MD Signed by: Edwin Bentley MD 12/24/20 Final result Normal [facility] CT Head WO ContrastOrdered B y: Vielka Ching on 12-24-2020 No acute intracranial abnormality. [facility] Work Phone: EXAMINATION: CT OF THE HEAD WITHOUT CONTRAST [...] not a suspected or confirmed emergency medical condition->Emergenc y Medical Condition (MA) Is the patient ?->No FINDINGS: BRAIN/VENTRICLES: There is no acute intracranial hemorrhage, mass effect or midline shift. No abnormal extra-axial fluid collection. The antonio-white differentiation is maintained without evidence of an acute infarct. There is no evidence of hydrocephalus. ORBITS: The visualized portion of the orbits demonstrate no acute abnormality. SINUSES: Yynu-nl-itibnbaw paranasal sinus mucosal thickening. SOFT TISSUES/SKULL: No acute abnormality of the visualized skull or soft tissues. [employer] Phone: Dimitri, [facility] Incoming Radiant Results From [employer] - 12/24/2020 8:49 PM EDT EXAMINATION: CT [...] not a suspected or confirmed emergency medical condition->Emergenc y Medical Condition (MA) Is the patient ?->No FINDINGS: BRAIN/VENTRICLES: There is no acute intracranial hemorrhage, mass effect or midline shift. No abnormal extra-axial fluid collection. The antonio-white differentiation is maintained without evidence of an acute infarct. There is no evidence of hydrocephalus. ORBITS: The visualized portion of the orbits demonstrate no acute abnormality. SINUSES: Gdbs-hl-jnrqlbxa paranasal sinus mucosal thickening. SOFT TISSUES/SKULL: No acute abnormality of the visualized skull or soft tissues. IMPRESSION: No acute intracranial abnormality. [employer] Phone: [employer] Phone: Comp Metabolic Pr/rfx MGon 1 02-24-2020 Bilirubin [Mass/Vol] mg/dL Low 0.3-1.[address] [facility] Comment on above: Performed By: #### C MPX, CDP #### [facility] [address] [place] [address] New Account Interviewer: Souleymane Pineda MD (cont.) Normal [facility] Comment on above: Result Comment: Aver age GFR for 20-29 years old: 116 mL/min/1.73sq m Chronic Kidney Disease: <60 mL/min/1.73sq m Kidney failure: <15 mL/min/1.73sq m eGFR calculated using average adult body mass. Additional eGFR calculator available at: http://[email or web address]/multiple_crcl_2012.htm Performed By: #### C MPX, CDP #### [facility] [address] [place] [address] New Account Interviewer: Souleymane Pineda MD Albumin [Mass/Vol] 4.0 g/dL Normal 3.5-5.2 [facility] Comment on above: Performed By: #### C MPX, CDP #### [facility] [address] [place] [address] New Account Interviewer: Souleymane Pineda MD Albumin/Glob Ratio 1.5 Normal 1.0-2.5 [facility] Comment on above: Performed By: #### C MPX, CDP #### [facility] [address] [place] [address] New Account Interviewer: Souleymane Pineda MD Alkaline Phos 90 U/L Normal 35-104 [facility] Comment on above: Performed By: #### C MPX, CDP #### [facility] [address] [place] [address] New Account Interviewer: Souleymane Pineda MD ALT [Catalytic activity/Vol] 40 U/L High 5-33 [facility] Comment on above: Performed By: #### C MPX, CDP #### [facility] [address] [place] [address] New Account Interviewer: Souleymane Pineda MD Anion gap [Moles/Vol] 11 mmol/L Normal 9-17 [facility] Comment on above: Performed By: #### C MPX, CDP #### [facility] [address] [place] [address] New Account Interviewer: Souleymane Pineda MD AST [Catalytic activity/Vol] 19 U/L Normal <32 [facility] Comment on above: Performed By: #### C MPX, CDP #### [facility] [address] [place] [address] New Account Interviewer: Souleymane Pineda MD BUN/CRE Ratio 15 Normal 9-20 [facility] Comment on above: Performed By: #### C MPX, CDP #### [facility] [address] [place], [place] [id number] New Account Interviewer: Souleymane Pineda MD Calcium [Mass/Vol] 8.9 mg/dL Normal 8.6-10.4 [facility] Comment on above: Performed By: #### C MPX, CDP #### [facility] [address] [place], [place] [id number] New Account Interviewer: Souleymane Pineda MD Chloride [Moles/Vol] 104 mmol/L Normal 98-[address] [facility] Comment on above: Performed By: #### C MPX, CDP #### [facility] [address] [place], [place] [id number] New Account Interviewer: Souleymane Pineda MD CO2 [Moles/Vol] 24 mmol/L Normal 20-31 [facility] Comment on above: Performed By: #### C MPX, CDP #### [facility] [address] [place] [id number] New Account Interviewer: Souleymane Pineda MD Creatinine [Mass/Vol] 0.60 mg/dL Normal 0.50-0.90 [facility] Comment on above: Performed By: #### C MPX, CDP #### [facility] [address] [place], [place] [id number] New Account Interviewer: Souleymane Pineda MD GFR, Amer >60 Normal >60 [facility] Comment on above: Performed By: #### C MPX, CDP #### [facility] [address] [place], [place] [id number] New Account Interviewer: Souleymane Pineda MD GFR,non Amer >60 Normal >[address] [facility] Comment on above: Performed By: #### C MPX, CDP #### [facility] [address] [place], [place] [id number] New Account Interviewer: Souleymane Pineda MD Glucose [Mass/Vol] 91 mg/dL Normal 70-99 [facility] Comment on above: Performed By: #### C MPX, CDP #### [facility] [address] [place], [place] [id number] New Account Interviewer: Solueymane Pineda MD Potassium [Moles/Vol] 4.0 mmol/L Normal 3.7-5.3 [facility] Comment on above: Performed By: #### C MPX, CDP #### [facility] [address] [place], [place] [id number] New Account Interviewer: Souleymane Pineda MD Protein [Mass/Vol] 6.7 g/dL Normal 6.4-8.3 [facility] Comment on above: Performed By: #### C MPX, CDP #### [facility] [address] [place], [place] [id number] New Account Interviewer: Souleymane Pineda MD Sodium [Moles/Vol] 139 mmol/L Normal 135-144 [facility] Comment on above: Performed By: #### C MPX, CDP #### [facility] [address] [place], [place] [id number] New Account Interviewer: Souleymane Pineda MD Staging: Normal [facility] Comment on above: Result Comment: Stag e 1: Some kidney damage normal GFR Stage 2: Mild kidney damage GFR 60-89 Stage 3: Moderate kidney damage GFR 30-59 Stage 4: Severe kidney damage GFR 15-29 Stage 5: Severe kidney damage GFR <15 ESRD - chronic treatment by dialysis or transplant Performed By: #### C MPX, CDP #### [facility] [address] [place] [address] New Account Interviewer: Souleymane Pineda MD Urea nitrogen [Mass/Vol] 9 mg/dL Normal 6-20 [facility] Comment on above: Performed By: #### C MPX, CDP #### [facility] [address] [place] [address] New Account Interviewer: Souleymane Pineda MD Comprehensive Metabolic Pane l w/ Reflex to MGOrdered By: Vielka Ching on 12-24-2020 Albumin [Mass/Vol] 4 g/dL 3.5 - 5.2 g/dL [employer] Phone: Albumin/Globulin [Mass ratio] 1.5 {ratio} [employer] Phone: ALP (Bld) [Catalytic activity/Vol] 90 U/L 35 - 104 [facility]/L [facility]: ALT [Catalytic activity/Vol] 40 U/L High 5 - 33 U/L [facility] Phone: Anion gap [Moles/Vol] 11 mmol/L 9 - 17 mmol/L [facility] Phone: AST [Catalytic activity/Vol] 19 U/L <32 [employer] Phone: Bilirubin [Mass/Vol] mg/dL Low 0.3 - 1 .2 mg/dL [employer] Phone: Calcium [Mass/Vol] 8.9 mg/dL 8.6 - 10. 4 mg/dL [employer] Phone: Chloride [Moles/Vol] 104 mmol/L 98 - 10 7 mmol/L [employer] Phone: CO2 [Moles/Vol] 24 mmol/L 20 - 31 mmol/L [employer] Phone: Creatinine [Mass/Vol] 0.6 mg/dL 0.50 - 0.90 mg/dL [employer] Phone: Free PSA/Total PSA [Mass fraction] 6.7 g/dL 6.4 - 8.3 g/dL [employer] Phone: GFR >60 >60 mL/min Wordy Phone: GFR Non- >60 >60 mL/min [employer] Phone: Glucose [Mass/Vol] 91 mg/dL 70 - 99 mg/dL [employer] Phone: Interpretation and review of laboratory results Abnormal [employer] Phone: Potassium [Moles/Vol] 4.0 mmol/L 3.7 - 5.3 mmol/L [employer] Phone: Sodium [Moles/Vol] 139 mmol/L 135 - 144 mmol/L [employer] Phone: Urea nitrogen (BldV) [Mass/Vol] 9 mg/dL 6 - 20 mg/dL [employer] Phone: Urea nitrogen/Creatinine (Bld) [Mass ratio] 15 [employer] Phone: [employer] Phone: Laboratory - Chemistry and C hemistry - challengeOrdered By: Vielka Ching on 12-24-2020 GFR/1.73 sq M.predicted MDRD (S/P/Bld) [Vol rate/Area] [employer] Phone: Comment on above: Average GFR for 20-2 9 years old: 116 mL/min/1.73sq m Chronic Kidney Disease: <60 mL/min/1.73sq m Kidney failure: <15 mL/min/1.73sq m eGFR calculated using average adult body mass. Additional eGFR calculator available at: http://[email or web address]_crcl_[email or web address].htm Stage 1: Some kidney damage normal GFR [...] pressure 63 mm[Hg] Infusion 8 Work Phone: [facility] 11-11-2022 10:55-0400 Heart rate 83 /min Infusion 8 Work Phone: [facility] 11-11-2022 10:55-0400 Systolic blood pressure 110 mm[Hg] Infusion 8 Work Phone: [facility] 07-28-2022 10:15-0400 Diastolic blood pressure 50 mm[Hg] Infusion 8 Work Phone: [facility] 07-28-2022 10:15-0400 Heart rate 80 /min Infusion 8 Work Phone: [facility] 07-28-2022 10:15-0400 Systolic blood pressure 105 mm[Hg] Infusion 8 Work Phone: [facility] 12-03-2021 09:47-0400 Diastolic blood pressure 81 mm[Hg] Jesse Borrego MD Work Phone: [facility] 12-03-2021 09:47-0400 Heart rate 66 /min Jesse Borrego MD Work Phone: [facility] 12-03-2021 09:47-0400 SaO2% (BldA) [Mass fraction] 100 % Jesse Borrego MD Work Phone: [facility] 12-03-2021 09:47-0400 Systolic blood pressure 131 mm[Hg] Jesse Borrego MD Work Phone: [facility] 10-20-2021 12:00-0400 Diastolic blood pressure 101 mm[Hg] Lucila Mota MD Work Phone: [facility] 10-20-2021 12:00-0400 Heart rate 85 /min Lucila Mota MD Work Phone: [facility] 10-20-2021 12:00-0400 Respiratory rate 12 /min Lucila Mota MD Work Phone: [facility] 10-20-2021 12:00-0400 SaO2% (BldA) [Mass fraction] 98 % Lucila Mota MD Work Phone: [facility] 10-20-2021 12:00-0400 Systolic blood pressure 136 mm[Hg] Lucila Mota MD Work Phone: [facility] [employer] 10-20-2021 08:00-0400 Body temperature 98.2 [degF] Lucila Mota MD Work Phone: [facility] 12-24-2020 19:36-0400 Body temperature 99 [degF] Vielka Ching DO Work Phone: [employer] Work Phone: 12-24-2020 19:36-0400 Diastolic blood pressure 80 mm[Hg] Vielka Ching DO Work Phone: [employer] Work Phone: 12-24-2020 19:36-0400 Heart rate 108 /min Vielka Ching DO Work Phone: [employer] Work Phone: 12-24-2020 19:36-0400 Respiratory rate 20 /min Vielka Ching DO Work Phone: [employer] Work Phone: 12-24-2020 19:36-0400 SaO2% (BldA) [Mass fraction] 96 % Vielka Ching DO Work Phone: [employer] Work Phone: 12-24-2020 19:36-0400 Systolic blood pressure 136 mm[Hg] Vielka Ching DO Work Phone: [facility] Work Phone: Encounters Encounter Date Encounter Type Care Provider Facility Start: 02-07-2023 End: 02-07-2023 ambulatory ZAY LEONARDO Not Available Start: 01-26-2023 End: 01-26-2023 ambulatory ZAY LEONARDO Not Available Start: 12-13-2022 Refill Logan Barth APR N.THREAD SEPARATOR Work Phone: Neurology Headache [facility] Comment on above: Refill Request Infusion (HEADACHE I NFUSIONS) Start: 12-12-2022 End: 12-12-2022 ambulatory LOGAN BARTH Facility:[facility] Start: 12-09-2022 Refill Ольга zazueta LINER REROLL TENDER.THREAD SEPARATOR Work Phone: Neurology Comment on above: Refill Request Start: 11-11-2022 End: 11-11-2022 ambulatory Infusion Main Chair 8 Work Phone: Neurology Comment on above: 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 with status migrainosus (Primary Dx) Start: 11-10-2022 End: 11-10-2022 ambulatory ОЛЬГА AGUILAR Facility:[facility] Start: 11-10-2022 End: 11-10-2022 ambulatory Ольга Aguilar LINER REROLL TENDER.THREAD SEPARATOR Work Phone: Neurology Comment on above: 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 with status migrainosus (Primary Dx) Nerve block Start: 11-10-2022 Telephone encounter Suzan dinero APRN.THREAD SEPARATOR Work Phone: Neurology Comment on above: Infusion Start: 11-10-2022 End: 11-10-2022 Telemedicine consultation with patient Ольга Aguilar LINER REROLL TENDER.THREAD SEPARATOR Work Phone: [facility] Start: 11-10-2022 ambulatory Ramsey Nunn acility:[facility] Start: 10-12-2022 End: 10-12-2022 ambulatory Suzan Driver LINER REROLL TENDER.THREAD SEPARATOR Work Phone: Neurology Comment on above: Botox Start: 10-12-2022 E-mail encounter alexus m caregiver Suzan Driver LINER REROLL TENDER.THREAD SEPARATOR Work Phone: [facility] Start: 09-29-2022 Telephone encounter Angely rousseau RN Work Phone: [facility] Home Delivery Comment on above: Insurance Authorizat ion (Zomig 5MG nasal spray/) Start: 09-27-2022 ambulatory Cameronnisha Green APR N.THREAD SEPARATOR Work Phone: [facility] Comment on above: My apt Monday Start: 09-16-2022 ambulatory Logan Green APR N.THREAD SEPARATOR Work Phone: [facility] Start: 09-16-2022 Patient encounter procedure Logan Barth LINER REROLL TENDER.THREAD SEPARATOR Work Phone: [facility] Comment on above: Appointment Start: 09-12-2022 End: 09-12-2022 ambulatory LOGAN BARTH Facility:[facility] Start: 08-31-2022 End: 08-31-2022 ambulatory LOGAN BARTH Facility:[facility] Start: 08-31-2022 End: 08-31-2022 ambulatory Logan Barth LINER REROLL TENDER.THREAD SEPARATOR Work Phone: Neurology Comment on above: Chronic migraine w/o aura, not intractable, w/o stat migr (Primary Dx) Start: 08-31-2022 End: 08-31-2022 Telemedicine consultation with patient Logan Barth LINER REROLL TENDER.THREAD SEPARATOR Work Phone: [facility] Start: 08-09-2022 ambulatory Logan Green APR N.THREAD SEPARATOR Work Phone: [facility] Comment on above: Pain Start: 08-08-2022 End: 08-08-2022 ambulatory Jesse Borrego MD Work Phone: Neurology Comment on above: 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 with status migrainosus (Primary Dx) Start: 08-08-2022 End: 08-08-2022 Telemedicine consultation with patient Jesse Borrego MD Work Phone: [facility] Start: 08-07-2022 ambulatory Jesse rick MD Work Phone: Neurology Comment on above: Name of medication Start: 07-29-2022 End: 07-29-2022 ambulatory MARIA DEL ROSARIO HAHN Facility:[facility] Start: 07-28-2022 End: 07-28-2022 ambulatory MARIA DEL ROSARIO HAHN Facility:[facility] Start: 07-28-2022 End: 07-28-2022 ambulatory Infusion Main Chair 8 Work Phone: Neurology Comment on above: 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 with status migrainosus (Primary Dx) Start: 07-27-2022 End: 07-27-2022 ambulatory MARIA DEL ROSARIOODETTE HAHN Facility:[facility] Start: 07-21-[address] ZAY BLAS . Facili ty:[facility]1 Start: 07-14-2022 Encounter for other preprocedural examination DR ZAY BLAS . [facility] Start: 07-12-2022 End: 07-13-[address] ZAY BLAS . Facility: Start: 07-12-2022 End: 07-13-2022 Encounter for other preprocedural examination DR ZAY BLAS . Facility: Start: 07-05-2022 ambulatory KRISTOFER Nunn acility:[facility] Start: 06-27-2022 Telephone encounter Logan Barth APRN.CNP Work Phone: Neurology Comment on above: Appointment (infusio n) Start: 06-24-2022 End: 06-24-2022 ambulatory LOGAN BARTH Facility:[facility] Start: 06-20-2022 End: 06-20-2022 ambulatory MANJINDER DEAL Facility: Start: 06-19-2022 End: 06-19-2022 ambulatory CHAYITO NARVAEZ . Facility:[facility] Start: 06-13-2022 Admission to establishment Jesse Borrego MD Work Phone: Neurology Comment on above: Admission Start: 06-13-2022 ambulatory Jesse rick MD Work Phone: [facility] Start: 06-11-2022 End: 06-11-2022 ambulatory DENNIS MTZP . Facility:[facility] Start: 06-08-2022 End: 06-08-2022 ambulatory MARY PAULINO . Facility:[facility] Start: 06-07-2022 ambulatory Jesse rick MD Work Phone: Neurology Comment on above: Migraines Start: 05-23-2022 End: 05-24-2022 ambulatory PATRICIA WALSH Facility:[facility] Start: 05-08-2022 End: 05-08-2022 ambulatory LUH CAPONE . Facility:[facility] Start: 04-01-2022 End: 04-01-2022 Evaluation and management of inpatient DAVID GOLDMAN Facility:[facility] Start: 03-31-2022 End: 04-01-[address] ANGÉLICA ARTHUR Facility:[facility] Start: 01-14-2022 End: 01-14-2022 ambulatory SUKHDEEP DOCKERY Facility:[facility] Start: 01-07-2022 End: 01-07-2022 ambulatory MANJINDER DEAL Facility:[facility] Start: 12-19-2021 ambulatory Jesse rick MD Work Phone: Neurology Comment on above: Medication Start: 12-03-2021 End: 12-03-2021 Patient encounter procedure Jesse Borrego MD Work Phone: Neurology Comment on above: Chronic migraine w/o aura, not intractable, w/o stat migr (Primary Dx) Start: 11-10-2021 End: 11-10-2021 ambulatory Nelly Piotr MINER Work Phone: Neurology Comment on above: Seizure-like activit y (HCC) (Primary Dx) Start: 11-10-2021 End: 11-10-2021 Telemedicine consultation with patient Nelly Saldaña PA-C Work Phone: [facility] Start: 11-09-2021 ambulatory Tyrone Dolan MD, PhD Work Phone: [facility] Start: 11-09-2021 Patient encounter procedure Tyrone Dolan MD, PhD Work Phone: Neurology Comment on above: Request Veido appoin tment Start: 11-08-2021 ambulatory Tyrone Dolan MD, PhD Work Phone: [facility] Start: 11-08-2021 Patient encounter procedure Tyrone Dolan MD, PhD Work Phone: Neurology Comment on above: Appointment Start: 11-08-2021 Telephone encounter Tyrone Dolan MD, PhD Work Phone: Neurology Comment on above: Orders Start: 11-04-2021 End: 11-04-2021 ambulatory MANJINDER DEAL Facility:[facility] Start: 10-29-2021 End: 10-29-2021 ambulatory Tyrone Dolan MD, PhD Work Phone: Neurology Comment on above: Psychogenic nonepile ptic seizure (Primary Dx); Spells of trembling; Chronic intractable headache, unspecified headache type Start: 10-29-2021 End: 10-29-2021 Telemedicine consultation with patient Tyrone Dolan MD, PhD Work Phone: [facility] Start: 10-26-2021 Patient encounter procedure Román Storey MD Work Phone: Neurology Comment on above: Seizure-like activit y (HCC) (Primary Dx) Start: 10-19-2021 End: 10-20-2021 Evaluation and management of inpatient LUCILA MOTA [facility] Start: 10-19-2021 End: 10-20-2021 Evaluation and management of inpatient Lucila Mota MD Work Phone: [address] Neuro ICU Start: 10-19-2021 End: 10-19-2021 ambulatory SHAIKH Joseph WALLS Facility:[facility] Start: 10-07-2021 End: 10-07-[address] ZAY BLAS . Facility:[facility] Start: 10-06-2021 End: 10-06-2021 ambulatory SUKHDEEP DOCKERY Facility:[facility] Start: 10-03-2021 End: 10-04-2021 ambulatory MANJINDER DEAL Facility:[facility] Start: 10-01-2021 End: 10-02-2021 Evaluation and management of inpatient DR ANGÉLICA ARTHUR Facility:[facility] Start: 10-01-2021 Encounter for preprocedural laboratory examination DR ZAY BLAS . [facility] Start: 09-29-2021 End: 09-30-[address] ZAY BLAS . Facility:[facility] Start: 09-29-2021 End: 09-30-2021 Encounter for preprocedural laboratory examination DR ZAY BLAS . Facility:[facility] Start: 09-21-2021 End: 09-22-[address] ANGÉLICA ARTHUR Facility:[facility] Start: 09-14-2021 End: 09-15-[address] ANGÉLICA ARTHUR Facility:[facility] Start: 08-14-2021 End: 08-14-2021 ambulatory BLUE LESLY Facility:[facility] Start: 08-14-2021 End: 08-14-2021 ambulatory [facility] Facility:[facility] Start: 12-24-2020 End: 12-24-2020 Emergency department patient visit [facility] Start: 12-24-2020 End: 12-24-2020 Emergency department patient visit Vielka Joshua PETIT Work Phone: [facility] ED Comment on above: Migraine without sta tus migrainosus, not intractable, unspecified migraine type (Primary Dx) Start: 02-18-2020 End: 02-18-2020 Telephone encounter Imad Najm Work Phone: Neurology Comment on above: Future Appointment ( [place], [place], Any) Procedures Date Procedure Procedure Detail Performing Clinician Start: 10-29-2021 Adult depression scr eening assessment Tyrone Dolan MD, PhD Work Phone: Start: 10-20-2021 EEG VIDEO MONITORING Marcy sommershira Chris LINER REROLL TENDER - THREAD SEPARATOR Work Phone: Start: 10-20-2021 BASIC METABOLIC PANE L W/ REFLEX TO MG FOR LOW K Puri Rikki Mota MD Work Phone: Start: 10-20-2021 Blood count complete auto&auto difrntl wbc Lo Perez LINER REROLL TENDER - THREAD SEPARATOR Work Phone: Start: 10-20-2021 IMMATURE PLATELET FRACTION Lo Perez LINER REROLL TENDER - THREAD SEPARATOR Work Phone: Start: 10-19-2021 Assay of lactate Uday Perez LINER REROLL TENDER - THREAD SEPARATOR Work Phone: Start: 10-19-2021 Ecg routine ecg w/le ast 12 lds w/i&r Lo Perez LINER REROLL TENDER - THREAD SEPARATOR Work Phone: Start: 10-19-2021 Mri brain brain stem w/o w/contrast material Lo Perez LINER REROLL TENDER - THREAD SEPARATOR Work Phone: Start: 10-19-2021 RESPIRATORY CARE EVALUATION ONLY Lo Perez LINER REROLL TENDER - THREAD SEPARATOR Work Phone: Start: 10-01-2021 Resection of Bilater [...] vaccine (7 - Td or Tdap) [facility] Start: 09-20-2025 Urine microalbumin profile DTaP,Tdap,Td Vaccine (7 - Td or Tdap) [facility] Start: 10-29-2022 Adult depression screening assessment DEPRESSION SCREENING [facility] Start: 10-21-2022 Influenza vaccination C [facility] Start: 02-20-2022 DEPRESSION ASSESSMENT DEPRESSION ASS [facility] Start: 10-26-2021 End: 10-26-2022 SARS-CoV-2 (COVID-19) RNA [Presence] in Respiratory specimen by SAURABH with probe detection PRE-PROCEDURE & PRE-OPERATIVE COVID Microbiology Routine Seizure-like activity (HCC) Expected: 10/26/2021, Expires: 10/26/2022 [facility] Work Phone: Comment on above: Expected: 10/26/2021 , Expires: 10/26/2022 Start: 10-21-2021 Influenza vaccination [facility] Start: 02-20-2021 [facility]ION [facility]ESS[facility] Start: 10-21-2020 Influenza vaccination Flu vaccine (# 1) [employer] Phone: Start: 11-13-2016 PAP TESTING PAP TESTING [facility] Start: 11-13-2016 Screening for malign ant neoplasm of cervix Pap [facility] Start: 11-13-2014 Urine microalbumin profile [facility] Start: 11-13-2013 Hepatitis C screening Hepatitis C mt reen [facility] Start: 11-13-2013 HEPATITIS C SCREENING HEPATITIS C SC REENING [facility] Start: 11-13-2013 HIV SCREENING HIV SCREENING [facility] Start: 2011 Screening for Chlamy rose trachomatis Chlamydia screen [facility] [employer] Start: 11-13-2010 HIV screening HIV screen [facility] Start: 11-13-2009 PEDS TO ADULT TRANSITION ANNUAL ASSESSMENT PEDS TO ADULT TRANSITION ANNUAL ASSESSMENT [facility] Start: 2007 Adult depression screening assessment DEPRESSION SCREENING [facility] Start: 2007 COVID-19 Vaccine (1) COVID-19 Vaccin e (1) [employer] Phone: Start: 2007 Depression Screen [facility] Screen [facility] Start: 2007 PEDS TO ADULT TRANSITION INITIAL DISCUSSION PEDS TO ADULT TRANSITION INITIAL DISCUSSION [facility] Start: 11-13-2006 HPV VACCINE (1 - 2-d ose series) HPV VACCINE (1 - 2-dose series) [facility] Start: 11-13-2004 HPV VACCINE (1 - 2-d ose series) HPV VACCINE (1 - 2-dose series) [facility] Start: 05-13-1996 COVID-19 Vaccine (#1) COVID-19 Vacci ne (#1) [facility] Start: 1995 HEPATITIS B (1 of 3 - 3-dose series) HEPATITIS B (1 of 3 - 3-dose series) [facility] Start: 1995 Hepatitis B Vaccine (1 of 3 - 3-dose series) Hepatitis B Vaccine (1 of 3 - 3-dose series) [facility] Start: 1995 Hepatitis C screening [facility] Phone: End: 09-06-2022 Basic Metabolic Panel w/ Reflex to MG Basic Metabolic Panel w/ Reflex to MG Lab Routine Daily for 7 Days starting 10/20/2021 until 10/26/2021 [facility] Work Phone: Comment on above: Daily for 7 Days sta rting 10/20/2021 until 10/26/2021 End: 10-26-2021 CBC W Auto Differential panel - Blood CBC with Auto Differential Lab Routine Daily for 7 Days starting 10/20/2021 until 10/26/2021, 1 completed 3[facility]der Work Phone: Comment on above: Daily for 7 Days sta rting 10/20/2021 until 10/26/2021, 1 completed EKG 12 Lead EKG 12 Lead ECG Routine 10/19/2021 5:55 PM EDT [facility] Work Phone: End: 10-29-2022 EPIL AMBULATORY EEG EPIL AMBULATORY EEG NEUROLOGY Routine Psychogenic nonepileptic seizure Spells of trembling 1 Occurrences starting 10/29/2021 until 10/29/2022 [facility] Work Phone: Comment on above: 1 Occurrences starti ng 10/29/2021 until 10/29/2022 End: 10-26-2022 EPIL EEG LEAD PLACEMENT EPIL EEG LEAD PLACEMENT NEUROLOGY Routine Seizure-like activity (HCC) 1 Occurrences starting 10/26/2021 until 10/26/2022 [facility] Work Phone: Comment on above: 1 Occurrences starti ng 10/26/2021 until 10/26/2022 End: 11-08-2022 EPIL EEG ROUTINE EPIL EEG ROUTINE NEUROLOGY Routine Seizure-like activity (HCC) 1 Occurrences starting 11/08/2021 until 11/08/2022 [facility] Work Phone: Comment on above: 1 Occurrences starti ng 11/08/2021 until 11/08/2022 EPIL VEEG ADMIT TO EMU/PMU EPIL VEEG ADMIT TO EMU/PMU NEUROLOGY Routine Seizure-like activity (HCC) Ordered: 10/26/2021 [facility] Work Phone: Comment on above: Ordered: 10/26/2021 Oxygen therapy [[facility] Data Set] Initiate Oxygen Therapy Protocol Respiratory Care Routine As Needed until discontinued starting 10/19/2021 [facility]H [facility]URR[facility] Work Phone: Comment on above: As Needed until disc ontinued starting 10/19/2021 [facility] Immunizations Immunization Date Immunization Notes Care Provider Fa mayelin 12-08-2017 influenza virus vacc ine, unspecified formulation Suzan Driver LINER REROLL TENDER.[facility] Work Phone: [facility] Payers Date Payer Category Payer Self-pay 2017 Medicaid [employer] [employer] [place] [employer] [id number] 2017-Present Medicaid [id number] 2013 Medicaid [id number] 2011 Unknown 1995 Unknown [id number] 1995 Unknown [id number] [id number] 1995 Unknown [id number] 2.16.840.1.418139.3.579.2.727 1995 Unknown [id number] 2.16.840.1.104020.3.579.2.593 1995 Unknown [id number] 2.16.840.1.915446.3.579.2.593 1995 Unknown [id number] 2.16.840.1.874187.3.579.2.593 1995 Unknown [id number] 2.16.840.1.414714.3.579.2.593 1995 Unknown [id number] 2.16.840.1.790394.3.579.2.593 1995 Unknown [id number] 2.16.840.1.442063.3.579.2.593 1995 Unknown [id number] 2.16.840.1.794082.3.579.2.593 1995 Unknown [id number] 2.16.840.1.977906.3.579.2.593 1995 Unknown [id number] 2.16.840.1.252283.3.579.2.593 1995 Unknown [id number] 2.16.840.1.660457.3.579.2.593 1995 Unknown [id number] 2.16.840.1.009882.3.579.2.593 1995 Unknown [id number] 2.16.840.1.112202.3.579.2.593 1995 Unknown [id number] 2.16.840.1.516232.3.579.2.593 1995 Unknown [id number] 2.16.840.1.671342.3.579.2.593 1995 Unknown [id number] 2.16.840.1.083248.3.579.2.593 1995 Unknown [id number] 1995 Unknown [id number] 1995 Unknown [id number] 1995 Unknown [id number] 1995 Unknown [id number] 1995 Unknown [id number] 1995 Unknown [id number] 1995 Unknown [id number] 1995 Unknown [id number] 1959 Unknown [id number] Social History Date Type Detail Facility Tobacco smoking stat [facility] Unknown if ever smoked [facility] Start: 1995 Sex Assigned At Not on file [facility] Start: 12-24-2020 End: 10-12-2022 Tobacco smoking status NHIS Never smoker [employer] Phone: Start: 12-24-2020 End: 10-12-2022 Tobacco use and exposure Never used [employer] Start: 12-24-2020 Alcohol intake Ex-drinker (finding) [employer] Phone: Start: 10-16-2021 End: 07-28-2022 Exposure to SARS-CoV-2 (event) Not sure [facility] [employer] Tobacco smoking stat [facility] Tobacco smoking consumption unknown [facility] Work Phone: Start: 06-23-2022 End: 08-08-2022 History of Social function [facility] Start: 06-23-2022 End: 08-08-2022 Patient Health Questionnaire 2 item (PHQ-2) [Reported] [facility] Adult Depression Screening Assessment 2 [facility] Clinical Notes 12-24-2020 to 12-13-2022 Telephone Encounter [...] would call back to schedule Logan Barth APRN.THREAD SEPARATOR P Headache Infusion Scheduling Pool; P C21 Botox Pool Pls schedule for infusions, and also her next botox treatment - thank you. KG documented in this encounter [facility] 12-13-2022 Miscellaneous Notes PA submitted through CoverMyMeds for Orphenadrine Citrate ER 100mg. Cohen Code: [id number] documented in this encounter [facility] 12-12-2022 Note HNO ID: [id number] Author: Logan Barth APRN.FADY Service: ? Author [...] visit. Either the patient or their legal wireless sales representative has been informed of the risks and benefits of -- and alternatives to -- treatment through a remote evaluation and consents to proceed with the evaluation remotely. Accompanied by: Self Primary Problem List: ACTIVE PROBLEM LIST Seizure-Like Activity (Hcc) Psychogenic Nonepileptic Seizure Intractable Chronic Migraine Without Aura and With Status Migrainosus Chief Complaint: headaches Impression and Plan from last visit 11/10/2022, Jeff: IMPRESSION: Coni Nicholson is a 26 year [...] their headaches have not changed. She sent [employer] message on 12/07: Hey I?m out of [...] XL, Qudexy) Anti-Depressant and Antipsychotic Amitriptyline (Elavil) Vandemere (Eskalith, Lithobid) Nortriptyline (Pamelor, Aventyl) Anti-Migraine Dihydroergotamine [...] ZOLMitriptan (ZOMIG) 5 mg nasal sprayUse 1 [place] in the nose as needed at onset of migraine headache. If symptoms persist or return, may repeat dose in other nostril after 2 hours. Maximum of 2 sprays per 24 hoursDisp: 10 EachRfl: 2 lamoTRIgine (LAMICTAL) 150 mg tabletDisp: Rfl: diazePAM (VALIUM) 10 mg tabletDisp: Rfl: I have reviewed the Hea (more content not included)... [facility] 12-09-2022 Miscellaneous Notes Patient would also like to know if new muscle relaxer can be sent to pharmacy as the current one does not really help However is new one is unable to be sent patient would like current medication to be refilled Patient has been scheduled for an appt Physician: Jeff Call from patient requesting refill. Please E-Scribe Last office visit 11/10/22 with Jeff virtual Next office visit 12/12/22 with Tab virtual Per Patient She is out of [...] Name: Emory Reilly documented in this encounter [facility] 11-11-2022 Note HNO ID: [id number] Author: Suzan Driver APRN.THREAD SEPARATOR Service: ? Author Type: Nurse Practitioner Type: [...] d/c since symptoms have resolved. Suzan Driver APRN.THREAD SEPARATOR [facility] 11-11-2022 History of Presen t illness Narrative Coni L Nicholson in for day 1 of PINEDA [...] d/c since symptoms have resolved. Suzan Driver APRN.THREAD SEPARATOR 0824: Patient in for first day of IV infusions. Patient rated headache 8/10. Patient stated severe nausea and severe dizziness. Patient educated on medications to be administered. Patient verbalized understanding and agreed to proceed with infusions. 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 She would like PRN benadryl for [...] with it. Message sent to Suzan Driver [employer] to update. Benadryl hypersensitivity released and administered. Pt also very nauseated. PRN zofran administered. 1050: Pt fell back asleep. Woke pt up and she she stated relief from all itching. Denies any other symptoms/side effects at this time. Pts infusions complete. Pt rated headache 7/10. Pt stated mild nausea and denied dizziness. 1055: Suzan Driver [employer] WORKER in txt room to see patient. 1105: Pt discharged from treatment room via wheelchair due to drowsiness to her significant other. 1110: When cleaning chair after pt left, white pill found in chair. Tablet identified as baclofen. During initial assessment, after reviewing home medication list, pt denied any other medications missing from the list. Baclofen not listed on home medication list. Suzan Driver NP notified. documented in this encounter [facility] 11-11-2022 Note HNO ID: [id number] Author: Coretta Quintanilla RN Service: ? Author Type: Registered Nurse Type: Progress Notes Filed: 11/11/2022 11:27 AM Note Text: 0824: Patient in for first day of IV infusions. Patient rated headache 8/10. Patient stated severe nausea and severe dizziness. Patient educated on medications to be administered. Patient verbalized understanding and agreed to proceed with infusions. 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 She would like PRN benadryl for [...] with it. Message sent to Suzan Driver NP to update. Benadryl hypersensitivity released and administered. Pt also very nauseated. PRN zofran administered. 1050: Pt fell back asleep. Woke pt up and she she stated relief from all itching. Denies any other symptoms/side effects at this time. Pts infusions complete. Pt rated headache 7/10. Pt stated mild nausea and denied dizziness. 1055: Suzan Driver NP in txt room to see patient. 1105: Pt discharged from treatment room via wheelchair due to drowsiness to her significant other. 1110: When cleaning chair after pt left, white pill found in chair. Tablet identified as baclofen. During initial assessment, after reviewing home medication list, pt denied any other medications missing from the list. Baclofen not listed on home medication list. Suzan Driver NP notified. [facility] 11-10-2022 Note HNO ID: [id number] Author: Ольга Aguilar APRN.FADY Service: ? Author Type: Nurse Practitioner Type: Progress Notes Filed: 11/10/2022 1:58 PM Note Text: Headache Center - Virtual Visit Infusion Triage This visit was conducted as a virtual visit, with patient's permission, via ZOOM. It required patient-provider interaction for the medical decision making as documented below. Patient stated name and Patient location [facility] I have communicated my name and active licensure. The patient's identity and physical location were verified at the time of this visit. Either the patient or their legal wireless sales representative has been informed of the [...] therapy. Date of last visit: 10/12/22 Rhina Drievr APRN Onset of current headache: 2 weeks What medications have you tried for this headache cycle: ER x 1, Toradol, Parafon Forte, Zomig NS New health events/diagnosis since last visit ([place]/stroke/DM/HTN/etc): no Cardiovascular risk factors: none Past infusion [...] Lymph 1.00 - 4.00 k/uL 0.84 (L) [place]% % 0.7 Abs [place] <0.87 k/uL 0.06 Eosin% % 0.1 Abs [...] 2.7 TSH 0.270 - 4.200 mIU/L 0.537 Vandemere 0.6 - 1.2 mmol/L 0.1 (L) Analgesic Ketorolac (Toradol) Anti-Convulsant Lamotrigine (Lamictal) Topiramate (Topamax, Trokendi XL, Qudexy) Anti-Depressant and Antipsychotic Amitriptyline (Elavil) Vandemere (Eskalith, Lithobid) Nortriptyline (Pamelor, Aventyl) Anti-Migraine Dihydroergotamine [...] day as need (more content not included)... [facility] 11-10-2022 History of Presen t illness Narrative Images from the original note were not included. Headache Center - Virtual Visit Infusion Triage This visit was conducted as a virtual visit, with patient's permission, via ZOOM. It required patient-provider interaction for the medical decision making as documented below. Patient stated name and Patient location [facility] I have communicated my name and active licensure. The patient's identity and physical location were verified at the time of this visit. Either the patient or their legal wireless sales representative has been informed of the [...] NS New health events/diagnosis since last visit ([place]/stroke/DM/HTN/etc): no Cardiovascular risk factors: none Past infusion [...] Lymph 1.00 - 4.00 k/uL 0.84 (L) [place]% % 0.7 Abs [place] <0.87 k/uL 0.06 Eosin% % 0.1 Abs [...] 2.7 TSH 0.270 - 4.200 mIU/L 0.537 Vandemere 0.6 - 1.2 mmol/L 0.1 (L) Analgesic Ketorolac (Toradol) Anti-Convulsant Lamotrigine (Lamictal) Topiramate (Topamax, Trokendi XL, Qudexy) Anti-Depressant and Antipsychotic Amitriptyline (Elavil) Vandemere (Eskalith, Lithobid) Nortriptyline (Pamelor, Aventyl) Anti-Migraine Dihydroergotamine [...] ZOLMitriptan (ZOMIG) 5 mg nasal spray^Use 1 [place] in the nose as needed at onset [...] these with the patient: yes Ольга Aguilar APRN.THREAD SEPARATOR HEADACHE SCORES: Headache Questions 06/24/2022 08/31/2022 09/12/2022 [...] in rate, volume and articulation. Short and bistro server memory, cognition and general fund of knowledge [...] Service: Virtual Visit 25 minutes Ольга Aguilar APRN.THREAD SEPARATOR Headache Section [facility] November 10, 2022 documented in this encounter [facility] 11-10-2022 Miscellaneous Notes PATIENT SCHEDULED FOR TRIAGE AND TENTATIVE INFUSION NI PHONE Name of caller : Margaret Relationship to patient : Self If not self Will need patient permission to release results or disclose health information with called documented in i. Was permission obtained from patient ? Yes Patient identified by Name and Date of . ( Coni Nicholson, 1995). Yes Reason for Call : Other Patient wants to get infusions scheduled. Number to return call [phone] Okay to leave a message ? Yes Last office visit 10/12/22 with Fliiby Next office visit Not scheduled. Thank you calling [facility] [place]. You will receive a return call within 48 hours ( or 2 business days if close to the weekend). If you feel that this is an urgent issue and needs immediate attention, it is recommended that you contact your primary care provider office or proceed to your nearest Urgent Care Center of Emergency Room ED for evaluation/treatment. documented in this encounter [facility] 10-12-2022 Note HNO ID: [id number] Author: Suzan Driver APRN.CNP Service: ? Author Type: Nurse Practitioner [...] from the botox procedure. Level of service: Est level 3 (20-29 min). Time spent 20 min on the day of service, which included preparing to see the patient, mgil-wo-nflu patient care, completing clinical documentation, obtaining and/or reviewing separately obtained history, performing a medically appropriate examination, counseling and educating the patient/family/caregiver, and ordering medications, tests, or procedures. Suzan Driver APRN.FADY BOTOX PROCEDURE VISIT New Onabotulinum Toxin A (BotoxTM) for Migraine Indication: Chronic Intractable Migraine Treatment #: 1 Referral Expiration: 09/14/2023 Number of moderate-severe migraine days/month: 15 Number of mild migraine days/month: 0 Number of headache free days/month: 15 (360 headache-free hours) Migraine severity: 08/29 The patient has been assessed for disorders [...] for migraine Informed Consent Consent Obtained: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 (HCC)- Primary Other convulsions Psychogenic nonepileptic seizure documented in this encounter [facility] note* Diagnosis Seizure-like activity (HCC)- Primary Other convulsions documented in this encounter [facility] note* Diagnosis Chronic migraine w/o aura, not intractable, w/o stat migr- Primary documented in this encounter [facility] note* Diagnosis 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 with status migrainosus- Primary Chronic migraine without aura, with intractable migraine, so stated, with status migrainosus documented in this encounter [facility] note* Diagnosis 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 with status migrainosus- Primary Chronic migraine without aura, with intractable migraine, so stated, with status migrainosus documented in this encounter [facility] note* Diagnosis Chronic migraine w/o aura, not intractable, w/o stat migr- Primary documented in this encounter [facility] note* Diagnosis 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 with status migrainosus- Primary Chronic migraine without aura, with intractable migraine, so stated, with status migrainosus [facility] Diagnosis 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 with status migrainosus- Primary Chronic migraine without aura, with intractable migraine, so stated, with status migrainosus documented in this encounter [facility] note* Diagnosis Chronic migraine w/o aura, not intractable, w/o stat migr Cervicalgia Migraine without aura and without status migrainosus, not intractable Migraine without aura, without mention of intractable migraine without mention of status migrainosus documented in this encounter [facility] for referral (narrative)* Outpatient Procedure (Routine) - Pending Review Specialty Diagnoses / Procedures Referred By Sushma veloz Referred To [facility] Diagnoses Seizure-like activity (HCC) Procedures EPIL EEG LEAD PLACEMENT EEG EXTENDED MONITORING 61-119 MINUTES ELECTROENCEPHALOGRAM REC COMA/SLEEP ONLY Geri Madera, LINER REROLL TENDER.THREAD SEPARATOR [address] [place] [address] [facility] [address] [place] [address] Referral ID Status Reason Start Date Expiration Date Visits Requested Visits Authorized [id number] Pending Review Auto-Generat ed Referral 10/26/2021 10/26/2022 1 1 [facility] for referral (narrative)* Outpatient Procedure (Routine) - Pending Review Specialty Diagnoses / Procedures Referred By Contac t Referred To [facility] Diagnoses Psychogenic nonepileptic seizure Spells of trembling Procedures EPIL AMBULATORY EEG EEG COMPLETE STD PHYS/QHP&GT;84 HR W/O Tyrone Diaz MD, PhD [address] [place] [address] [place] [address] Referral ID Status Reason Start Date Expiration Date Visits Requested Visits Authorized [id number] Pending Review Auto-Generat ed Referral 10/29/2021 10/29/2022 1 1 * Outpatient Procedure (Routine) - Pending Review Specialty Diagnoses / Procedures Referred By Contac t Referred To Contact [facility] Diagnoses Psychogenic nonepileptic seizure Spells of trembling Procedures EPIL AMBULATORY EEG EEG COMPLETE STD PHYS/QHP&GT;84 HR W/O Tyrone Diaz MD, PhD [address] [address] Referral ID Status Reason Start Date Expiration Date Visits Requested Visits Authorized [id number] Pending Review Auto-Generat ed Referral 10/29/2021 10/29/2022 1 1 * Consult, Test, Treat (Routine) - Authorized Specialty Diagnoses / Procedures Referred By Contac t Referred To Contact Diagnoses Chronic intractable headache, unspecified headache type Procedures CONSULT TO HEADACHE CLINIC OFFICE/OUTPATIENT NEW HIGH MDM 60-74 MINUTES Tyrone Dolan MD, PhD [address] [address] Referral ID Status Reason Start Date Expiration Date Visits Requested Visits Authorized [id number] Authorized PCP Requested Referral 10/29/2021 10/29/2022 1 1 [facility] Outpatient Procedure (Routine) - Pending Review Specialty Diagnoses / Procedures Referred By Sushma veloz Referred To Contact [facility] Diagnoses Seizure-like activity (HCC) Procedures EPIL EEG ROUTINE ELECTROENCEPHALOGRAM REC COMA/SLEEP ONLY Nelly Saldaña PA-C [address] [facility] [address] [place] [id number] [facility] [address] [place] [address] Referral ID Status Reason Start Date Expiration Date Visits Requested Visits Authorized [id number] Pending Review Auto-Generat ed Referral 11/08/2021 11/08/2022 1 1 [facility] Advance Directives No Advanced Directives Records FoundDocuments on File Type Date Recorded 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 Expl 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 ACP-Advance Directive ACP-Power of Tree Puller Latest Code Status on File Code Status [...] Referral Specialty Diagnoses / Procedures Referred By Sushma veloz Referred To Contact Jesse Borrego MD [address] [place] [address] Referral ID Status Reason Start Date Expiration Date Visits Re quested Visits Authorized [id number] Closed 1 1 Additional Source Comments Source Comments (unrecognize d section and content) In the event this informatio n is protected by the Federal Confidentiality of Alcohol and Drug Abuse Patient Records regulations: The Federal rules restrict any use of the information to criminally investigate or prosecute any alcohol or drug abuse patient.[facility] the event this information is protected by the Federal Confidentiality of Alcohol and Drug Abuse Patient Records regulations: The Federal rules restrict any use of the information to criminally investigate or prosecute any alcohol or drug abuse patient.[facility] the event this information is protected by the Federal Confidentiality of Alcohol and Drug Abuse Patient Records regulations: The Federal rules restrict any use of the information to criminally investigate or prosecute any alcohol or drug abuse patient.[facility] the event this information is protected by the Federal Confidentiality of Alcohol and Drug Abuse Patient Records regulations: The Federal rules restrict any use of the information to criminally investigate or prosecute any alcohol or drug abuse patient.[facility] the event this information is protected by the Federal Confidentiality of Alcohol and Drug Abuse Patient Records regulations: The Federal rules restrict any use of the information to criminally investigate or prosecute any alcohol or drug abuse patient.[facility] the event this information is protected by the Federal Confidentiality of Alcohol and Drug Abuse Patient Records regulations: The Federal rules restrict any use of the information to criminally investigate or prosecute any alcohol or drug abuse patient.[facility] the event this information is protected by the Federal Confidentiality of Alcohol and Drug Abuse Patient Records regulations: The Federal rules restrict any use of the information to criminally investigate or prosecute any alcohol or drug abuse patient.[facility] the event this information is protected by the Federal Confidentiality of Alcohol and Drug Abuse Patient Records regulations: The Federal rules restrict any use of the information to criminally investigate or prosecute any alcohol or drug abuse patient.[facility] the event this information is protected by the Federal Confidentiality of Alcohol and Drug Abuse Patient Records regulations: The Federal rules restrict any use of the information to criminally investigate or prosecute any alcohol or drug abuse patient.[facility] the event this information is protected by the Federal Confidentiality of Alcohol and Drug Abuse Patient Records regulations: The Federal rules restrict any use of the information to criminally investigate or prosecute any alcohol or drug abuse patient.[facility] the event this information is protected by the Federal Confidentiality of Alcohol and Drug Abuse Patient Records regulations: The Federal rules restrict any use of the information to criminally investigate or prosecute any alcohol or drug abuse patient.[facility] the event this information is protected by the Federal Confidentiality of Alcohol and Drug Abuse Patient Records regulations: The Federal rules restrict any use of the information to criminally investigate or prosecute any alcohol or drug abuse patient.[facility] the event this information is protected by the Federal Confidentiality of Alcohol and Drug Abuse Patient Records regulations: The Federal rules restrict any use of the information to criminally investigate or prosecute any alcohol or drug abuse patient.[facility] the event this information is protected by the Federal Confidentiality of Alcohol and Drug Abuse Patient Records regulations: The Federal rules restrict any use of the information to criminally investigate or prosecute any alcohol or drug abuse patient.[facility]In the event this information is protected by the Federal Confidentiality of Alcohol and Drug Abuse Patient Records regulations: The Federal rules restrict any use of the information to criminally investigate or prosecute any alcohol or drug abuse patient.[facility] SouthIn the event this information is protected by the Federal Confidentiality of Alcohol and Drug Abuse Patient Records regulations: The Federal rules restrict any use of the information to criminally investigate or prosecute any alcohol or drug abuse patient.[facility] SouthIn the event this information is protected by the Federal Confidentiality of Alcohol and Drug Abuse Patient Records regulations: The Federal rules restrict any use of the information to criminally investigate or prosecute any alcohol or drug abuse patient.[facility] SouthIn the event this information is protected by the Federal Confidentiality of Alcohol and Drug Abuse Patient Records regulations: The Federal rules restrict any use of the information to criminally investigate or prosecute any alcohol or drug abuse patient.[facility] SouthIn the event this information is protected by the Federal Confidentiality of Alcohol and Drug Abuse Patient Records regulations: The Federal rules restrict any use of the information to criminally investigate or prosecute any alcohol or drug abuse patient.[facility] SouthIn the event this information is protected by the Federal Confidentiality of Alcohol and Drug Abuse Patient Records regulations: The Federal rules restrict any use of the information to criminally investigate or prosecute any alcohol or drug abuse patient.[facility] SouthIn the event this information is protected by the Federal Confidentiality of Alcohol and Drug Abuse Patient Records regulations: The Federal rules restrict any use of the information to criminally investigate or prosecute any alcohol or drug abuse patient.[facility] SouthIn the event this information is protected by the Federal Confidentiality of Alcohol and Drug Abuse Patient Records regulations: The Federal rules restrict any use of the information to criminally investigate or prosecute any alcohol or drug abuse patient.[facility] SouthIn the event this information is protected by the Federal Confidentiality of Alcohol and Drug Abuse Patient Records regulations: The Federal rules restrict any use of the information to criminally investigate or prosecute any alcohol or drug abuse patient.[facility] SouthIn the event this information is protected by the Federal Confidentiality of Alcohol and Drug Abuse Patient Records regulations: The Federal rules restrict any use of the information to criminally investigate or prosecute any alcohol or drug abuse patient.[facility] SouthIn the event this information is protected by the Federal Confidentiality of Alcohol and Drug Abuse Patient Records regulations: The Federal rules restrict any use of the information to criminally investigate or prosecute any alcohol or drug abuse patient.[facility] SouthIn the event this information is protected by the Federal Confidentiality of Alcohol and Drug Abuse Patient Records regulations: The Federal rules restrict any use of the information to criminally investigate or prosecute any alcohol or drug abuse patient.[facility] SouthIn the event this information is protected by the Federal Confidentiality of Alcohol and Drug Abuse Patient Records regulations: The Federal rules restrict any use of the information to criminally investigate or prosecute any alcohol or drug abuse patient.[facility] SouthIn the event this information is protected by the Federal Confidentiality of Alcohol and Drug Abuse Patient Records regulations: The Federal rules restrict any use of the information to criminally investigate or prosecute any alcohol or drug abuse patient.[facility] Reason for Visit (unrecogniz ed section and content) Reason Comments Future Appointment [place], [place], Any Reason Comments Migraine seen at [facility] yest erday for Migrane and D & [...] INFUSION HEADACHE Maria Del Rosario Hahn MD [address] [place] [address] Neur Headache [address] [place] [address] Referral ID Status Reason Start Date Expiration Date Visits Re quested Visits Authorized [id number] Closed 07/28/2022 09/26/2022 1 1 Reason Comments Chronic Migraine Reason Comments Chronic Migraine Reason Comments Insurance Authorization Zomig 5MG nasal spray Reason Comments Infusion Reason Comments Migraine Specialty Diagnoses / Procedures Referred By Contac t Referred To Contact Neurology / HEADACHE Diagnoses POSSIBLE DHE/WAITING FOR ORDERS Procedures INFUSION HEADACHE Self Neur Headache [address] [place] [address] Referral ID Status Reason Start Date Expiration Date V isits Requested Visits Authorized [id number] Authorized 11/10/2022 02/08/2023 1 99 Reason Onset [...] Use: Prophylaxis-DVT/PE 1832 (Given - Provider: Adrienne Stephens, PRATIBHA) 0834 (Given - Provider: Clementine Cm, PRATIBHA) lamoTRIgine (LAMICTAL) tablet 50 mg 50 mg, Oral, DAILY, First dose on Mon10/19/21 at 1445, Until Discontinued 1445 (Due) 0834 (Given - Provider: Clementine Cm, PRATIBHA) lidocaine 4 % external patch 1 patch 1 patch, TransDERmal, Administer over 12 Hours, DAILY, First dose on Mon10/20/21 at 0900, Apply 1 skin 2 packs daily for 12 hours on, 12 hours off 0834 (Patch Applied - Provider: Clementine Cm, RN)2033 (Due: Patch Removed - Provider: Clementine Cm RN) midazolam PF (VERSED) injection 1 mg (COMPLETED) 1 mg, IntraVENous, ONCE, 1 dose, On Mon10/19/21 at 1515, OK to repeat x1 for MRI 1707 (Given - Provider: Adrienne Stephens, RN) sodium chloride flush 0.9 % injection [...] RN) 1114 (Canceled Entry - Provider: Clementine Cm, PRATIBHA)2100 (Due) Continuous Medication Order 10/18/2021 10/19/2021 10/20/2021 0.9 % sodium chloride infusion (CANCELED) IntraVENous, at 125 mL/hr, CONTINUOUS, Starting on Mon10/19/21 at 1245 1740 (New Bag - Provider: Adrienne Stephens, PRATIBHA) 0714 (Stopped - Provider: Yun Neal RN) [...] Santana RN)0834 (See Alternative - Provider: Clementine Cm, PRATIBHA) acetaminophen (TYLENOL) tablet 1,000 mg(Linked Group 1) [...] 24 hours. 1832 (Given - Provider: Adrienne Stephens, PRATIBHA) gadoteridol (PROHANCE) injection 20 mL (COMPLETED) 20 [...] section and content) DATE CREATED AUTHOR 12/26/2020 [facility] DATE CREATED AUTHOR AUTHOR'S ORGANIZ ATION 10/25/2021 [facility] DATE CREATED AUTHOR AUTHOR'S ORGANIZ ATION 05/26/2022 [facility] DATE CREATED AUTHOR AUTHOR'S ORGANIZ ATION 08/02/2022 [facility] DATE CREATED AUTHOR AUTHOR'S ORGANIZ ATION 12/15/2022 [facility] DATE CREATED AUTHOR AUTHOR'S ORGANIZ ATION 02/10/2023 [facility] DATE CREATED AUTHOR AUTHOR'S ORGANIZ ATION 02/21/2023 [facility] Ordered Prescriptions (unrec ognized section and content) Prescription Sig Dispensed Refills Start Date End Da te lamoTRIgine (LAMICTAL) 25 MG tablet Take 2 tablets by mouth daily 30 tablet 3 10/21/2021 Care Teams (unrecognized sec tion and content) Head Loft Worker Relationship Specialty Start Date End Date Angélica Arthur, LINER REROLL TENDER - THREAD SEPARATOR [address] [place] [address] PCP - General Nurse Practitioner 12/24/20 Head Loft Worker Relationship Specialty Start Date End Date Maria Del Rosario Hahn (Historical) PCP - General 05/21/13 Head Loft Worker Relationship Specialty Start Date End Date Maria Del Rosario Hahn (Historical) PCP - General 05/21/13 Head Loft Worker Relationship Specialty Start Date End Date Maria Del Rosario Hahn (Historical) PCP - General 05/21/13 Head Loft Worker Relationship Specialty Start Date End Date Hoy, Maria Del Rosario M (Historical) PCP - General 05/21/13 Head Loft Worker Relationship Specialty Start Date End Date Hoy, Maria Del Rosario M (Historical) PCP - General 05/21/13 Head Loft Worker Relationship Specialty Start Date End Date Hoy, Maria Del Rosario M (Historical) PCP - General 05/21/13 Head Loft Worker Relationship Specialty Start Date End Date Hoy, Maria Del Rosario M (Historical) PCP - General 05/21/13 Head Loft Worker Relationship Specialty Start Date End Date Hoy, Maria Del Rosario M (Historical) PCP - General 05/21/13 Head Loft Worker Relationship Specialty Start Date End Date Hoy, Maria Del Rosario M (Historical) PCP - General 05/21/13 Head Loft Worker Relationship Specialty Start Date End Date Hoy, Maria Del Rosario M (Historical) PCP - General 05/21/13 Head Loft Worker Relationship Specialty Start Date End Date Hoy, Maria Del Rosario M (Historical) PCP - General 05/21/13 Head Loft Worker Relationship Specialty Start Date End Date Hoy, Maria Del Rosario M (Historical) PCP - General 05/21/13 Head Loft Worker Relationship Specialty Start Date End Date Hoy, Maria Del Rosario M (Historical) PCP - General 05/21/13 Head Loft Worker Relationship Specialty Start Date End Date Hoy, Maria Del Rosario M (Historical) PCP - General 05/21/13 Head Loft Worker Relationship Specialty Start Date End Date Hoy, Maria Del Rosario M (Historical) PCP - General 05/21/13 Head Loft Worker Relationship Specialty Start Date End Date Hoy, Maria Del Rosario M (Historical) PCP - General 05/21/13 Head Loft Worker Relationship Specialty Start Date End Date Hoy, Maria Del Rosario M (Historical) PCP - General 05/21/13 Head Loft Worker Relationship Specialty Start Date End Date Hoy, Maria Del Rosario M (Historical) PCP - General 05/21/13 Head Loft Worker Relationship Specialty Start Date End Date Hoy, Maria Del Rosario M (Historical) PCP - General 05/21/13 Head Loft Worker Relationship Specialty Start Date End Date Hoy, Maria Del Rosario M (Historical) PCP - General 05/21/13 Head Loft Worker Relationship Specialty Start Date End Date Hoy, Maria Del Rosario M (Historical) PCP - General 05/21/13 Head Loft Worker Relationship Specialty Start Date End Date Hoy, [...] BE BASED ON THE PRIMARY CLINICAL RECORDS. [facility]. provides no warranty or guarantee of the accuracy or completeness of information in this document.
--- NOTE | 2023-02-25 22:48 | ED.GENADUL1 ---
HPI - General Adult General Chief complaint: Headache Stated complaint: MIGRAINE Time Seen by Provider: 02/25/23 22:35 Source: patient Mode of arrival: walk-in Limitations: no limitations History of Present Illness HPI narrative: 27-year-old female presents for chief complaint of headache. She's had it for five days and it's continuous. She has a history of migraine headaches. She sees a neurologist in [place] and gets Botox injections and some other infusions. No fever or trauma. No localized weakness. She's noticed that her left eye was a bit puffy. No drainage from it. Related Data Home Medications Medication Instructions Recorded Confirmed baclofen 10 mg tablet 10 mg PO TID PRN spasms 07/20/22 01/26/23 diazepam 10 mg tablet 10 mg PO BID 07/20/22 01/26/23 epinephrine 0.3 mg/0.3 mL 0.3 mg IM Q10M PRN anaphylaxis 07/20/22 01/26/23 injection, auto-injector trazodone 300 mg PO .qhs 07/20/22 01/26/23 estradiol 0.5 mg tablet 0.5 mg PO QAM 01/06/23 01/26/23 diphenhydramine HCl 25 mg capsule 75 mg PO PRN PRN migraine headache 01/26/23 01/26/23 (Benadryl) ibuprofen 800 mg tablet 800 mg PO Q8H PRN pain 01/26/23 01/26/23 lamotrigine 200 mg tablet 200 mg PO .hs 01/26/23 01/26/23 lamotrigine 25 mg tablet 25 mg PO .q am 01/26/23 01/26/23 lithium carbonate 300 mg capsule 300 mg PO BID 01/26/23 01/26/23 loratadine-pseudoephedrine ER 10 1 tab PO DAILY 01/26/23 01/26/23 mg-240 mg tablet,extended [id number] (AllerClear D-24hr) magnesium See Rx Instructions .Route 01/26/23 01/26/23 .COMPLEX PRN migraine headache orphenadrine citrate 100 mg 100 mg PO PRN migraine 01/26/23 01/26/23 tablet,extended release promethazine 25 mg tablet 12.5 mg PO Q6H PRN nausea and 12/07/23 12/07/23 vomiting toradol 10 mg PO Q6H PRN migraine headache 01/26/23 01/27/23 Previous Rx's Medication Instructions Recorded prednisone 20 mg tablet 20 mg PO BID 5 days #10 tabs 01/27/23 sulfacetamide sodium 10 % eye drops 2 drp ophthalmic (eye) Q4H #15 mL 02/26/23 Allergies Allergy/AdvReac Type Severity Reaction Status Date / Time dihydroergotamine Allergy Severe Rash Verified 02/25/23 22:37 buspirone Allergy Hives Verified 02/25/23 22:37 carbamazepine Allergy Unknown Verified 02/25/23 22:37 ciprofloxacin [From Cipro] Allergy Hives Verified 02/25/23 22:37 levetiracetam [From Keppra] Allergy ITCHING Verified 02/25/23 22:37 azithromycin [From Zithromax] AdvReac Intermediate Hives Verified 02/25/23 22:37 bee venom protein (honey bee) AdvReac Intermediate Hives Verified 02/25/23 22:37 metoclopramide [From Reglan] AdvReac Intermediate panic Verified 02/25/23 22:37 adhesive tape AdvReac Mild Rash Verified 02/25/23 22:37 cephalexin [From Keflex] AdvReac Mild Hives Verified 02/25/23 22:37 dextromethorphan AdvReac Mild Unknown Verified 02/25/23 22:37 [From [place] [facility]] pyrilamine [From [place] [facility]] AdvReac Mild Unknown Verified 02/25/23 22:37 propranolol AdvReac Hives Verified 02/25/23 22:37 Review of Systems ROS Narrative A ten point review of systems is negative except as noted above. [facility] Medical History (Updated 02/26/23 @ 00:36 by Wild Kendall MD) Seizure disorder ?G40.909 - Epilepsy, unspecified, not intractable, without status epilepticus (ICD-10) Bipolar disorder ?F31.9 - Bipolar disorder, unspecified (ICD-10) Pelvic pain ?R10.2 - Pelvic and perineal pain (ICD-10) Headache ?R51.9 - Headache, unspecified (ICD-10) Bilateral occipital neuralgia ?M54.81 - Occipital neuralgia (ICD-10) Migraine ?G43.909 - Migraine, unspecified, not intractable, without status migrainosus (ICD-10) Post-op pain ?G89.18 - Other acute postprocedural pain (ICD-10) Combative behavior ?R46.89 - Other symptoms and signs involving appearance and behavior (ICD-10) Postoperative nausea and vomiting ?R11.2 - Nausea with vomiting, unspecified (ICD-10) ?Z98.890 - Other specified postprocedural states (ICD-10) Vaginal bleeding ?N93.9 - Abnormal uterine and vaginal bleeding, unspecified (ICD-10) Abscess of vagina ?N76.0 - Acute vaginitis (ICD-10) PCOS (polycystic ovarian syndrome) ?E28.2 - Polycystic ovarian syndrome (ICD-10) Mitral valve prolapse ?I34.1 - Nonrheumatic mitral (valve) prolapse (ICD-10) Vaginal delivery ?O80 - Encounter for full-term uncomplicated delivery (ICD-10) Nausea ?R11.0 - Nausea (ICD-10) GERD (gastroesophageal reflux disease) ?K21.9 - Gastro-esophageal reflux disease without esophagitis (ICD-10) Depression ?F32.A - Depression, unspecified (ICD-10) Blood in urine ?R31.9 - Hematuria, unspecified (ICD-10) Acne ?L70.9 - Acne, unspecified (ICD-10) Dyspareunia Brain mass ?G93.89 - Other specified disorders of brain (ICD-10) Pneumonia ?J18.9 - Pneumonia, unspecified organism (ICD-10) Kidney stones ?N20.0 - Calculus of kidney (ICD-10) COVID-19 ?U07.1 - COVID-19 (ICD-10) Bronchitis ?J40 - Bronchitis, not specified as acute or chronic (ICD-10) Asthma ?J45.909 - Unspecified asthma, uncomplicated (ICD-10) Stress incontinence ?N39.3 - Stress incontinence (female) (male) (ICD-10) Dysuria ?R30.0 - Dysuria (ICD-10) Seizure ?R56.9 - Unspecified convulsions (ICD-10) Neck pain ?M54.2 - Cervicalgia (ICD-10) Migraine ?G43.909 - Migraine, unspecified, not intractable, without status migrainosus (ICD-10) Low back pain ?M54.50 - Low back pain, unspecified (ICD-10) Head injury ?S09.90XA - Unspecified injury of head, initial encounter (ICD-10) Anxiety ?F41.9 - Anxiety disorder, unspecified (ICD-10) Surgical History (Updated 01/06/23 @ 12:50 by Rocio Schwartz NP) H/O laparoscopy (07/21/22) ?Z98.890 - Other specified postprocedural states (ICD-10) S/P RAVI-BSO ?Z90.710 - Acquired absence of both cervix and uterus (ICD-10) ?Z90.722 - Acquired absence of ovaries, bilateral (ICD-10) ?Z90.79 - Acquired absence of other genital organ(s) (ICD-10) Hx laparoscopic cholecystectomy ?Z90.49 - Acquired absence of other specified parts of digestive tract (ICD-10) H/O: ?Z98.891 - History of uterine scar from previous surgery (ICD-10) History of appendectomy ?Z90.49 - Acquired absence of other specified parts of digestive tract (ICD-10) Family History (Updated 07/20/22 @ 17:40 by Irlanda Weiss RN) Other Acid reflux Acute renal disease Afib Chromosomal disorder Delayed developmental milestones Diabetes Family history of hypertension High cholesterol Neuro-irritability due to autonomic dysfunction Primary ciliary dyskinesia due to transposition of ciliary microtubules Pulmonary aspiration Tachycardia Social History (Updated 01/20/23 @ 08:49 by Joyce Zhong) Within the past year, how often did you have a drink containing alcohol: never Score interpretation: A score less than 3 is consistent with normal alcohol consumption. 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 General: The patient appears well and in no apparent distress. Patient is resting comfortably on cart. Skin: Warm, dry, no pallor noted. There is no rash noted. Head: Normocephalic, atraumatic Eye: Normal conjunctiva, no drainage, EOMI. PERRL; left eye has mild chemosis. Ears, Nose, Mouth, and Throat: oral mucosa is moist. Nares patent. Cardiovascular: Regular Rate and Rhythm Respiratory: Patient is in no distress, no accessory muscle use, lungs are clear to auscultation, no wheezing, rales or rhonchi Back: non-tender GI: no tenderness to palpation, no masses appreciated. No rebound, guarding, or rigidity noted. Musculoskeletal: The patient has no evidence of calf tenderness, no pitting edema, symmetrical pulses noted bilaterally Neurological: A&O, normal speech; upper and lower extremity strength intact. Psychiatric: Cooperative Constitutional Vital Signs, click to edit/add: Last Vital Signs Temp 98.9 F 02/25/23 22:37 Pulse 110 H 02/25/23 22:37 Resp 20 02/25/23 22:37 BP 103/64 02/25/23 22:37 Pulse Ox 99 02/25/23 22:37 Course Vital Signs Vital signs: Vital Signs Temperature 98.9 F 02/25/23 22:37 Pulse Rate 110 H 02/25/23 22:37 Respiratory Rate 20 02/25/23 22:37 Blood Pressure 103/64 02/25/23 22:37 Pulse Oximetry 99 02/25/23 22:37 Temperature 98.9 F 02/25/23 22:37 Pulse Rate 110 H 02/25/23 22:37 Respiratory Rate 20 02/25/23 22:37 Blood Pressure 103/64 02/25/23 22:37 Pulse Oximetry 99 02/25/23 22:37 Medical Decision Making MDM Narrative Medical decision making narrative: The patient is improved with medications given. She'll also be prescribed Bleph-10 for her eyes. Treatment diagnosis and follow-up were discussed with the patient. I have no clinical suspicion of acute intracranial pathology. Differential Diagnosis Differential Diagnosis: migraine headache, conjunctivitis, intracranial hemorrhage Discharge Plan Discharge Chief Complaint: Headache Clinical Impression: Migraine, Conjunctivitis Patient Disposition: Home, Self-Care Time of Disposition Decision: 00:36 Condition: Good Mode of Transportation: Private Vehicle Prescriptions / Home Meds: New sulfacetamide sodium 10 % drops 2 drp ophthalmic (eye) Q4H Qty: 15 0RF No Action baclofen 10 mg tablet 10 mg PO TID PRN (Reason: spasms) Rx Instructions: per refill hx: last filled 01/17/23 for QTY 90 / 30 days diazepam 10 mg tablet 10 mg PO BID Rx Instructions: per refill hx: last filled 12/31/22 for QTY 60 / 30 days epinephrine 0.3 mg/0.3 mL auto-injector 0.3 mg IM Q10M PRN (Reason: anaphylaxis) Rx Instructions: for 2 doses trazodone 300 mg PO .qhs Rx Instructions: per refill hx: last filled 01/17/23 for QTY 30 / 30 days estradiol 0.5 mg tablet 0.5 mg PO QAM AllerClear D-24hr 10-240 mg tablet extended release 24 hr 1 tab PO DAILY Rx Instructions: per refill hx: last filled 01/17/23 for QTY 30 / 30 days ibuprofen 800 mg tablet 800 mg PO Q8H PRN (Reason: pain) Rx Instructions: per refill hx: last filled 01/21/23 QTY 40 for 13 days promethazine 25 mg tablet 12.5 mg PO Q6H PRN (Reason: nausea and vomiting) Rx Instructions: per refill hx: last filled 01/17/23 for QTY 90 / 22 days lithium carbonate 300 mg capsule 300 mg PO BID Rx Instructions: per refill hx: last filled 01/17/23 for QTY 60 / 30 days orphenadrine citrate 100 mg tablet extended release 100 mg PO PRN lamotrigine 200 mg tablet 200 mg PO .hs lamotrigine 25 mg tablet 25 mg PO .q am toradol 10 mg tablet 10 mg PO Q6H PRN (Reason: migraine headache) magnesium 400 mg tablet See Rx Instructions .ROUTE .COMPLEX PRN (Reason: migraine headache) Rx Instructions: PRN; diphenhydramine HCl [Benadryl] 25 mg capsule 75 mg PO PRN PRN (Reason: migraine headache) prednisone 20 mg tablet 20 mg PO BID 5 Days Qty: 10 0RF Instructions: Migraine Headache (ED), Conjunctivitis (ED) Stand Alone Forms: Portal Instructions Referrals: Lamont Blair MD [Primary Care Provider] - 1 week
[2023-02-25] MEDS: KETOROLAC TROMETHAMINE 60 MG/2 ML VIAL IM (23:08)
[2023-02-25] MEDS: DIPHENHYDRAMINE HCL 50 MG/ML (1ML) VIAL 25 MG IM (23:09)
[2023-02-25] MEDS: METHYLPREDNISOLONE SOD SUCC PF 125 MG/2 ML VIAL IM (23:09)
[2023-02-25] MEDS: ONDANSETRON 4 MG RAPDIS TABLET SL (23:37)
[2023-02-25] MEDS: MORPHINE SULFATE 4 MG/ML VIAL 10 MG IM (23:59)
[2023-02-26 00:45] VITALS: BP 110/72; PULSE 84; RESP 16; TEMP 36.8; O2SAT 96
== END 2023-02-26 00:59 | disposition home or self-care (01) ==
PROVIDERS: Emergency Provider Emergency Medicine; PCP Family Medicine
DX: G43.909 Migraine, unspecified, not intractable, without status migrainosus (principal); H10.9 Unspecified conjunctivitis; G40.909 Epilepsy, unspecified, not intractable, without status epilepticus; F31.9 Bipolar disorder, unspecified; E28.2 Polycystic ovarian syndrome; I34.1 Nonrheumatic mitral (valve) prolapse; K21.9 Gastro-esophageal reflux disease without esophagitis; Z86.16 Personal history of COVID-19; Z87.442 Personal history of urinary calculi; Z87.01 Personal history of pneumonia (recurrent); Z79.899 Other long term (current) drug therapy; J45.909 Unspecified asthma, uncomplicated; F41.9 Anxiety disorder, unspecified; Z98.890 Other specified postprocedural states; Z90.710 Acquired absence of both cervix and uterus; Z90.722 Acquired absence of ovaries, bilateral; Z90.79 Acquired absence of other genital organ(s); Z90.49 Acquired absence of other specified parts of digestive tract; Z98.891 History of uterine scar from previous surgery
CPT/HCPCS: 99284; J1200; J1885; J2270; J2930; Q0162

== ENCOUNTER 2023-03-03 08:54 | Observation (INO) | payer OTHER, SELFPAY ==
[2023-03-03] VITALS (10 sets, daily range): BP systolic 93–148; BP diastolic 57–92; PULSE 75–110; RESP 16–24; TEMP 36.1–36.6; O2SAT 90–98; BMI 46.3; BMI 102.9
--- OUTSIDE RECORDS SUMMARY | 2023-03-03 09:02 | XMS_ITS | CCD ---
Author Name Unknown Address [address] [place] [address] Organization [facility] Care Team Providers Care Supervisor Varnish Name Role Phone Maria Del Rosario Hahn (Historical) Primary Care Provide r Unavailable Sandhya POWER ELECTRONICS ENGINEER - STRUCTURAL DRAFTSMAN, Angélica Pamela Primary Care Provider SANDHYA ANGÉLICA Santiago Primary Care Unavailable VIELKA CHING Attending Unavailable Sandhya POWER ELECTRONICS ENGINEER - STRUCTURAL DRAFTSMAN, Angélica Pamela Primary Care Provider LUCILA MOTA Attending Unavailable LYNDSEY STEWART Referring Unavailable DANIELKrupa ANGÉLICA Pamela Primary Care Unavailable LUCILA MOTA Admitting Unavailable Maria Del Rosario Hahn (Historical) Primary Care Provide r Unavailable KRISTOFER BURCIAGA Attending Unavailab Zay Tavarez Referring Unavailable Maria Del Rosario Hahn (Historical) Primary Care Provide r Unavailable BRICE ., CHAYITO Admitting Unavailable BRICE ., CHAYITO Attending Unavailable BRICE ., CHYAITO Consulting Unavailable LAURITA, DR SPENSER Garcia Primary [...] MANJINDER Admitting Unavailable PATRICIA WALSH Consulting Unavailable [facility], DR GOMEZ Primary Care Unavailable HAY ., DR HARMAN Attending Unavailable HAY ., DR HARMAN Admitting Unavailable NEWSTEWART, NICHOLAS Consulting Unavailable UNLU, SINDY Consulting Unavailable LEONARDO ., DR GUTIERREZ Admitting Unavailable LEONARDO ., DR GUTIERREZ Consulting Unavailable [facility] Primary Care Unavailable LEONARDO ., DR GUTIERREZ Attending Unavailable KUNS, DR ANGÉLICA Santiago Primary Care Unavailable LEONARDO ., DR GUTIERREZ Admitting Unavailable LEONARDO ., DR GUTIERREZ Attending Unavailable LEONARDO ., DR GUTIERREZ Consulting Unavailable LEONARDO ., DR GUTIERREZ Admitting Unavailable LEONARDO ., DR GUTIERREZ Attending Unavailable NADERER, DR SPENSER Garcia Primary Care Unavailable [facility] Primary Care Unavailable HAY ., DR HARMAN [...] Consulting Unavailable LUCIE, KLEBER Consulting Unavailable DORKOSKIE, SHIRLENE Consulting Unavailable ALECIA ., DENNIS Admitting Unavailable [...] HARMAN Admitting Unavailable AHDOOT, NELI Consulting Unavailable ZAY BLAS Attending Unavailable LEONARDOZAY Attending Unavailable HaiderDomenicoan Attending Unavailab le HaiderRamsey Admitting Unavailab le NON STAFF Primary Care Unavailable MARIA DEL ROSARIO HAHN Referring Unavailable MARIA DEL ROSARIO HAHN Referring Unavailable LOGAN BARTH Attending Unavailable LOGAN BARTH Attending Unavailable ОЛЬГА AGUILAR Attending Unavailable LOGAN BARTH Referring Unavailable BIDSUZAN CORTES Attending Unavailable LOGAN BARTH Attending Unavailable DINORAH IVY Referring Unavailable DAVID GOLDMAN Admitting Unavailable DAVID GOLDMAN Attending Unavailable LOGAN BARTH Attending Unavailable SAMPLESJESSE Attending Unavailable MARIA DEL ROSARIO HAHN Referring Unavailable Allergies Allergy Classification Reported Allergen(s) Allergy Type Date of Onset Reaction(s) Facility (20 sources) Azithromycin; Translations: [AZITHROMYCIN] Drug Allergy 1 Hives, Other: See Comments [facility] [email or web address] (2 sources) carBAMazepine Drug Allergy 1 Other (See Comments) [facility] (20 sources) Cephalexin; Translations: [CEPHALEXIN] Drug Allergy 1 Hives, Rash [facility] (20 sources) Metoclopramide; Translations: [METOCLOPRAMIDE] Drug Allergy 1 Hives, Intolerance [facility] (2 sources) Propranolol Drug Allergy 1 Hives, Other (See Comments) [facility] (20 sources) Adhesive Tape-Silicones; Translations: [ADHESIVE TAPE-SILICONES] Drug Allergy 2 Rash [facility] (20 sources) Dextromethorphan / Pyrilamine; Translations: [PYRILAMINE-DEXTROME THORPHAN] Drug Allergy 2 [facility] Work Phone: (20 sources) vortioxetine; Translations: [VORTIOXETINE] [facility] Work Phone: (17 sources) Dihydroergotamine; Translations: [DIHYDROERGOTAMINE] Drug Allergy 3 Intolerance [facility] (1 source) Azithromycin Drug Allergy [facility] (1 source) bee venom Drug allergy (disorder) [facility] (1 source) Cephalexin Drug Allergy [facility] (1 source) Desonide Drug Allergy [facility] (1 source) Iothalamate Drug Allergy [facility] (1 source) Propranolol Drug Allergy 1 [facility] (1 source) [place] DM Drug allergy (disorder) 2 [facility] (6 sources) levETIRAcetam; Translations: [LEVETIRACETAM] Drug Allergy 3 Itching [facility] Work Phone: Medications Current Medications [...] Start: 10-21-2021 [facility] 2 tablets [facility] lamoTRIgine (LAMICTAL) 25 MG [...] Comment on above: [facility]. 2.5 mg at onset of [...] a day as needed. polyethylene glycol [phone] [id number] mg powder for oral solution (1 source) [...] (ZOMIG) 5 mg nasal spray Use 1 [place] in the nose as needed at onset of migraine headache. If symptoms persist or return, may repeat dose in other nostril after 2 hours. Maximum of 2 sprays per 24 hours 10 Each 2 06/24/2022 Active Start: 06-24-2022 take 1 spray(s) nasa l route every twenty-four hours as needed ZOLMitriptan (ZOMIG) 5 mg nasal spray Use 1 [place] in the nose as needed. SPRAY IN 1 NOSTRIL AT ONSET OF MIGRAINE HEADACHE. If symptoms persist or return, may repeat dose after 2 hours. Maximum: 5 mg/dose; 10 mg per 24 hours 10 Each 2 06/24/2022 Active Comment on above: Use 1 [place] in the n ose as needed. SPRAY IN 1 NOSTRIL AT ONSET OF MIGRAINE HEADACHE. If symptoms persist or return, may repeat dose after 2 hours. Maximum: 5 mg/dose; 10 mg per 24 hours Use 1 [place] in the n ose as needed at [...] 08-14-2021 Episodic Other aftercare (1 source) Other [facility] (current) drug therapy; Translations: [OTH CROP RANCH HAND CURRENT DRUG THERAPY] Onset: 06-22-2022 Episodic Other [...] Reference Range Facility Veronica 12-13-2022 BASHIR Telephone ([facility]) ---- CONI NICHOLSON ([id number]) 1995 F Date Time Provider Department 12/13/22 LOGAN BARTH [facility] During your visit today, we recorded [...] Date Reviewed: 12/12/2022 Reviewed by: Logan Barth APRN.STRUCTURAL DRAFTSMAN - Fully Assessed Prescriptions as of 12/13/2022 [...] (ZOMIG) 5 mg nasal spray Use 1 [place] in the nose as needed at onset [...] Encounter Status:Closed by JANNETTE MCLEOD [facility] CONI NICHOL[facility] ([id number]) 1995 F Date Time Provider Department 12/13/22 LOGAN BARTH NITravis During your visit today, we recorded the following information about you: Mendoza Dooley 12/13/2022 2:27 PM Signed Called patient to schedule for 3 days of Non DHE IV infusions. She started she was currently driving and would call back to schedule Logan Barth APRN.STRUCTURAL DRAFTSMAN P Headache Infusion Scheduling Pool; P C21 [...] Date Reviewed: 12/12/2022 Reviewed by: Logan Barth APRN.STRUCTURAL DRAFTSMAN - Fully Assessed Reason for Visit: Infusion [...] (ZOMIG) 5 mg nasal spray Use 1 [place] in the nose as needed at onset [...] Encounter Status:Closed by MENDOZA DOOLEY on 12/13/22 [facility] BASHIR Tele[facility] (NIQ) ---- CONI NICHOLSON ([id number]) 1995 F Date Time Provider Department 11/10/22 [...] get infusions scheduled. Number to return call [phone] Okay to leave a message ? Yes Last office visit 10/12/22 with [facility] Next office visit Not scheduled. Thank you calling [facility]. You will receive a return call within [...] Date Reviewed: 10/12/2022 Reviewed by: Suzan Driver APRN.STRUCTURAL DRAFTSMAN - Fully Assessed Reason for Visit: Infusion [...] (ZOMIG) 5 mg nasal spray Use 1 [place] in the nose as needed at onset [...] by MENDOZA DOOLEY on 11/10/22 [facility] ARMANIOVshira 10-12-2022 CNOV Office Visit ([facility]) ---- CONI NICHOLSON ([id number]) 1995 F Date Time Provider Department 10/12/22 10:15 AM [address] [facility] During your visit today, we recorded the following information about you: Pulse Blood pressure Weight Height 91/minute 133/63 108.8 kg 1.549 m Suzan Driver APRN.STRUCTURAL DRAFTSMAN 10/12/2022 11:03 AM Addendum AFTER VISIT CARE [...] maximize the effectiveness of your pain relief. https://my.[facility].org/health/ treatments/8312-bot zqyvmc-taruw-hpigzp ions Download the Chronic Migraine Anatomy Andrzej (by [employer]) to learn more about botox. -HYDRATION Hydration [...] see if you qualify for reimbursement. https://www.botoxsa [employer]proContactual.com/ Return in 3 months for your next [...] machinery while taking this medication. Suzan Driver APRN.STRUCTURAL DRAFTSMAN 10/12/2022 11:04 AM Signed New Onabotulinum Toxin [...] 0 PHQ-9 06/24/2022more content not included)... Normal [facility] CNPNon 09-29-2022 CNPN Telephone ([facility]) ---- CONI NICHOLSON ([id number]) 1995 F Date Time Provider Department 09/29/22 ANGELY COTTON [facility] During your visit today, we recorded the following information about you: Angely Cotton RN 09/29/2022 11:55 AM Signed [facility] received prescription(s) for Zomig 5MG nasal spray . Benefits investigation was conducted, indicating that a prior authorization is required. PA was initiated and pending review through [employer]. All pertinent clinical information was submitted to insurance. CMM Cohen: [id number] Ordering Provider: Logan Barth APRN.STRUCTURAL DRAFTSMAN Angely Cotton RN [facility] P: , F: Angely Cotton RN 10/07/2022 3:17 PM Signed Ambulatory Pharmacy Prior Authorization Note Provider Intervention Required?: No- Pharmacy completed on your behalf. Rx Plan: Medicaid MCO ([facility]) Drug: Zomig 5MG nasal spray Cover My Meds Cohen: [id number] Determination: Approved Prior Authorization/Case #: n/a Prior [...] refills. Prescriptions will now be processed through [facility] for determination of next steps. For questions relating to this submission, please contact [facility] at [phone] Allergies As of Date: 09/29/2022 Noted Allergy [...] Date Reviewed: 09/12/2022 Reviewed by: Logan Barth APRN.STRUCTURAL DRAFTSMAN - Fully Assessed Reason for Visit: Insurance Authorization [8423] Cmt: Zomig 5MG nasal spray Prescriptions as [...] (ZOMIG) 5 mg nasal spray Use 1 [place] in the nose as needed at onset [...] Encounter Status:Closed by ANGELY COTTON on 10/07/22 [facility] 09-13-2022 [facility] Telephone (NHMNS2) ---- CONI NICHOLSON ([id number]) 1995 F Date Time Provider Department 09/13/[address] [facility] During your visit today, we recorded the [...] Date Reviewed: 09/12/2022 Reviewed by: Logan Barth APRN.STRUCTURAL DRAFTSMAN - Fully Assessed Reason for Visit: Referral [...] (ZOMIG) 5 mg nasal spray Use 1 [place] in the nose as needed. SPRAY IN [...] by ENEDINA TSAI on 09/13/22 [facility] CNCOon 09-08-2022 CNCO Letter Text [facility] CNPNon [facility]-2022 [facility] ---- CONI NICHOLSON ([id number]) 1995 F Date Time Provider Department 07/05/22 ANGELY COTTON [facility] During your visit today, we recorded the following information about you: Angely Cotton RN 07/05/2022 1:18 PM Signed [facility] received prescription(s) for Emgality 120MG/ML auto-injectors (migraine) . Benefits investigation was conducted, indicating that a prior authorization is required. PA was initiated and pending review through [employer]. All pertinent clinical information was submitted to insurance. CMM Cohen: [id number] Ordering Provider: GABBI Johnston Alisha, RN [facility] P: , F: Angely Cotton RN 07/11/2022 12:55 PM Signed Ambulatory Pharmacy Prior Authorization Note Provider Intervention Required?: No- Pharmacy completed on your behalf. Rx Plan: Medicaid MCO ([facility]) Drug: Emgality 120MG/ML auto-injectors (migraine) Cover My Meds Cohen: [id number] Determination: Denied PA Denied because: Step therapy requirement Prior Authorization/Case #: n/a Prior Authorization Expiration: n/a Time to PA Submission in CMM: 15 min Time to PA Determination in CMM: 1 day Additional Information: Full letter scanned into chart for reference, please review letter for full details. No further action by [facility] for now and existing order to be profiled. Angely Cotton RN [facility] P: , F: For questions relating to this submission, please contact [facility] at [phone] Logan Barth APRN.CNP 07/20/2022 12:44 PM Signed [...] Recall letter placed. Uploaded to chart via [employer]. PLEASE SEND NEW RX TO PHARMACY FOR [...] Date Reviewed: 06/24/2022 Reviewed by: Logan Barth APRN.STRUCTURAL DRAFTSMAN - Fully Assessed Reason for Visit: Insurance Authorization [1153] Cmt: Emgality 120MG/ML auto-injectors (migraine) Order(s):Order #: [id number] Order #: [id number] Prescriptions as of 09/27/2022 - galcanezumab-gnlm (EMGALITY [...] - prometh (more content not included)... [facility] ---- CONI NICHOLSON ([id number]) 1995 F Date Time Provider Department 07/04/22 LOGAN BARTH [facility] During your visit today, we recorded the following information about you: Shirlene Leon 07/04/2022 4:01 PM Signed Ambulatory Pharmacy Prior Authorization Note Provider Intervention Required?: Yes- [place] Medicaid (PCN: [id number]) requires prior authorization to be submitted by the provider. Prior authorization forms required for submission can be found at: [email or web address].medica id.[place].gov/SPConte nt/DocumentLibrary/ Forms Drug: EMGALITY PEN 120 mg/mL pen Additional Information: n/a URGENT! Please select Urgent when requesting prior authorization using either [employer] or [facility] sites. This should result in a 24 hour turnaround from [facility]. Please send electronic fax using [employer] or [facility] or manually fax completed paperwork to [phone] with ATTN: PA Help Desk. Any questions, please contact us at [facility] [phone] Enedina Tsai RN 07/27/2022 8:32 AM Addendum Submitted PA via [employer] Margaret Nicholson (Cohen: [id number]) Emgality 120MG/ML auto-injectors (migraine) Form: [place] Managed Medicaid [email or web address] Standard Pharmacy Prior Authorization Form Your PA has been faxed to the [facility] as a paper copy. Please contact the [facility] directly if you haven't received a determination in a typical timeframe. You will be notified of the determination electronically and via fax. Enedina Tsai RN Allergies As of Date: 07/04/2022 Noted Allergy Reaction ADHESIVE TAPE-SILICONES 12/03/2021 2 - Rash AZITHROMYCIN 12/03/2021 14 - Other: See Comments KEFLEX (CEPHALEXIN) 12/03/2021 2 - Rash PYRILAMINE-DEXTROME THORPHAN 01/07/2022 4 - Hives REGLAN (METOCLOPRAMIDE) 12/03/2021 5 - Intolerance VORTIOXETINE 08/06/2021 4 - Hives Date Reviewed: 06/24/2022 Reviewed by: Logan Barth APRN.STRUCTURAL DRAFTSMAN - Fully Assessed Prescriptions as of 02/28/2023 - promethazine (PHENERGAN) 12.5 mg tablet Take 1 tablet by mouth every 6 hours as needed. - orphenadrine ER (NORFLEX) 100 mg tablet [...] (ZOMIG) 5 mg nasal spray Use 1 [place] in the nose as needed at onset of migraine headache. If symptoms persist or return, may repeat dose in other nostril after 2 hours. 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 SPRAY IN [...] Status:Closed by MENDOZA DOOLEY on 06/27/22 Normal [facility] BLOOD GASES BTYon 06-20-2022 02 MODE ROOM AIR Normal [facility] Comment on above: Performed By: #### B MP #### [facility] [address] [place] [address] Dr. Ibis BETH TEST Positive Normal [facility] Comment on above: Performed By: #### B MP #### [facility] [address] [address] [address] Ibis Jimenez Base excess Calc (Bld) [Moles/Vol] -1.6000 mmol/L Normal -2.0-2.0 [facility] Comment on above: Performed By: #### B MP #### [facility] [address] [address] [address] Ibis Jimenez BIPAP PRESSURE Normal [facility] Comment on above: Performed By: #### B MP #### [facility] [address] [address] [address] Ibis Jimenez CPAP [facility] Comment on above: Performed By: #### B MP #### [facility] [address] [place] [address] Dr. Ibis Jimenez FIO2 [facility] Comment on above: Performed By: #### B MP #### [facility] [address] [address] [address] Ibis Jimenez HCO3 (Bld) [Moles/Vol] 23.8 mmol/L Normal 22.0-26.0 [facility] Comment on above: Performed By: #### B MP #### [facility] [address] [place] [address] Dr. Ibis Jimenez LPM [facility] Comment on above: Performed By: #### B MP #### [facility] [address] [place] [address] Dr. Ibis Jimenez MINUTE VOLUME Normal [facility] Comment on above: Performed By: #### B MP #### [facility] [address] [place] [address] Dr. Ibis Jimenez Oxygen (Bld) [Partial pressure] 75.5 mm[Hg] Critically low 80.0-100.0 [facility] Comment on above: Performed By: #### B MP #### [facility] [address] [place] [address] Dr. Ibis Jimenez Oxygen saturation in Blood 95.8 % Normal 95.0-100.0 [facility] Comment on above: Performed By: #### B MP #### [facility] [address] [address] [address] Ibis Jimenez PCO2 41.8 mmHg Normal 35.0-45.0 [facility] Comment on above: Performed By: #### B MP #### [facility] [address] [address] [address] Ibis Jimenez PEEP [facility] Comment on above: Performed By: #### B MP #### [facility] [address] [address] [address] Ibis Jimenez pH (Bld) 7.363 [pH] Normal 7.350-7.450 [facility] Comment on above: Performed By: #### B MP #### [facility] [address] [place] [address] Dr. Ibis Jimenez [facility] Comment on above: Performed By: #### B MP #### [facility] [address] [address] [address] Ibis Jimenez [facility] Comment on above: Performed By: #### B MP #### [facility] [address] [address] [address] Ibis Jimenez PUNCTURE SITE LR [facility] Comment on above: Performed By: #### B MP #### [facility] [address] [place] [address] Dr. Ibis Jimenez RATE [facility] Comment on above: Performed By: #### B MP #### [facility] [address] [address] [address] Ibis Jimenez VENT MODE [facility] Comment on above: Performed By: #### B MP #### [facility] [address] [address] [address] Ibis Jimenez [facility] Comment on above: Performed By: #### B MP #### [facility] [address] [place] [address] Dr. Ibis Jimenez CBC AUTO DIFFon 06-20-2022 BASO # 0.0 103/ul Normal 0.0-0.1 [facility] Comment on above: Performed By: #### A CET, SALYC #### [facility] [address] [place] [address] Dr. Ibis Jimenez Basophils/100 WBC (Bld) 0.5 % Normal 0.2-2.0 [facility] Comment on above: Performed By: #### A CET, SALYC #### [facility] [address] [place] [address] Dr. Ibis Jimenez EO # 0.3 103/ul Normal 0.0-0.7 [facility] Comment on above: Performed By: #### A CET, SALYC #### [facility] [address] [place] [address] Dr. Ibis Jimenez Eosinophils/100 WBC (Bld) 4.2 % Normal 0.9-7.0 [facility] Comment on above: Performed By: #### A CET, SALYC #### [facility] [address] [place] [address] Dr. Ibis Jimenez Erythrocyte distribution width (RBC) [Ratio] 13.2 % Normal 11.0-15.0 [facility] Comment on above: Performed By: #### A CET, SALYC #### [facility] [address] [place] [address] Dr. Ibis Jimenez Hematocrit (Bld) [Volume fraction] 36.5 % Normal 36.0-48.0 [facility] Comment on above: Performed By: #### A CET, SALYC #### [facility] [address] [place] [address] Dr. Ibis Jimenez Hemoglobin (Bld) [Mass/Vol] 11.7 g/dL Critically low 12.0-16.0 [facility] Comment on above: Performed By: #### A CET, SALYC #### [facility] [address] [place] [address] Dr. Ibis Jimenez IG # 0.05 10e3/ul Critically high 0.00-0.03 [facility] Comment on above: Performed By: #### A CET, SALYC #### [facility] [address] [place] [address] Dr. Ibis Jimenez IG % 0.8 % Critically high 0.0-0.5 [facility] Comment on above: Performed By: #### A CET, SALYC #### [facility] [address] [place] [address] Dr. Ibis Jimenez LYMPH # 1.7 103/ul Normal 1.2-3.8 [facility] Comment on above: Performed By: #### A CET, SALYC #### [facility] [address] [place] [address] Dr. Ibis Jimenez Lymphocytes/100 WBC (Bld) 26.9 % Normal 20.5-60.0 [facility] Comment on above: Performed By: #### A CET, SALYC #### [facility] [address] [place] [address] Dr. Ibis Jimenez MANUAL DIFF REQ NO Normal [facility] Comment on above: Performed By: #### A CET, SALYC #### [facility] [address] [place] [address] Dr. Ibis Jimenez MCH (RBC) [Entitic mass] 28.7 pg Normal 26.7-34.0 [facility] Comment on above: Performed By: #### A CET, SALYC #### [facility] [address] [place] [address] Dr. Ibis Jimenez MCHC (RBC) [Mass/Vol] 32.1 g/dL Normal 29.9-35.2 [facility] Comment on above: Performed By: #### A CET, SALYC #### [facility] [address] [place] [address] Dr. Ibis Jimenez MCV (RBC) [Entitic vol] 89.7 fL Normal 81.0-99.0 [facility] Comment on above: Performed By: #### A CET, SALYC #### [facility] [address] [place] [address] Dr. Ibis Jimenez MONO # 0.6 103/ul Normal 0.3-0.8 [facility] Comment on above: Performed By: #### A CET, SALYC #### [facility] [address] [address] [address] Ibis Jimenez Monocytes/100 WBC (Bld) 8.9 % Normal 1.7-12.0 [facility] Comment on above: Performed By: #### A CET, SALYC #### [facility] [address] [place] [address] Dr. Ibis Jimenez NEUT # 3.8 103/ul Normal 1.4-6.5 [facility] Comment on above: Performed By: #### A CET, SALYC #### [facility] [address] [place] [address] Dr. Ibis Jimenez Neutrophils/100 WBC (Bld) 58.7 % Normal 43.0-75.0 [facility] Comment on above: Performed By: #### A CET, SALYC #### [facility] [address] [place] [address] Dr. Ibis Jimenez Platelet mean volume (Bld) [Entitic vol] 9.3 fL Critically low 9.5-13.5 [facility] Comment on above: Performed By: #### A CET, SALYC #### [facility] [address] [place] [address] Dr. Ibis Jimenez PLT 188 103/ul Normal 150-450 [facility] Comment on above: Performed By: #### A CET, SALYC #### [facility] [address] [place] [address] Dr. Ibis Jimenez RBC 4.07 106/ul Critically low 4.20-5.40 [facility] Comment on above: Performed By: #### A CET, SALYC #### [facility] [address] [place] [address] Dr. Ibis Jimenez WBC 6.4 103/ul Normal 4.0-11.0 [facility] Comment on above: Performed By: #### A CET, SALYC #### [facility] [address] [place] [address] Dr. Ibis Jimenez DRUG SCREEN RAPID (URINE)on 06-20-2022 AMP Negative Normal NEGATIVE [facility] Comment on above: Performed By: #### B MP #### [facility] [address] [place] [address] Dr. Ibis Jimenez BAR Positive Abnormal NEGATIVE [facility] Comment on above: Performed By: #### B MP #### [facility] [address] [place] [address] Dr. Ibis Jimenez BUP Negative Normal NEGATIVE [facility] Comment on above: Performed By: #### B MP #### [facility] [address] [place] [address] Dr. Ibis Jimenez BZO Positive Abnormal NEGATIVE [facility] Comment on above: Performed By: #### B MP #### [facility] [address] [place] [address] Dr. Ibis Jimenez SEMAJ Negative Normal NEGATIVE [facility] Comment on above: Performed By: #### B MP #### [facility] [address] [place] [address] Dr. Ibis Jimenez CUT-OFFS SEE BELOW Normal [facility] Comment on above: Result Comment: AMP [...] ng/mL Performed By: #### B MP #### [facility] [address] [place] [address] Dr. Ibis Jimeenz DRUG CUT HEADER DRUG CLASS TEST SYSTEM CUT-OFF CONCENTRATIONS ARE FOLLOWS: Normal [facility] Comment on above: Performed By: #### B MP #### [facility] [address] [place] [address] Dr. Ibis Jimenez mAMP Negative Normal NEGATIVE [facility] Comment on above: Performed By: #### B MP #### [facility] [address] [place] [address] Dr. Ibis Jimenez MTD Negative Normal NEGATIVE [facility] Comment on above: Performed By: #### B MP #### [facility] [address] [address] [address] Ibis Jimenez OPI Negative Normal NEGATIVE [facility] Comment on above: Performed By: #### B MP #### [facility] [address] [place] [address] Dr. Ibis Jimenez OXY Negative Normal NEGATIVE [facility] Comment on above: Performed By: #### B MP #### [facility] [address] [place] [address] Dr. Ibis Jimenez PCP Negative Normal NEGATIVE [facility] Comment on above: Performed By: #### B MP #### [facility] [address] [place] [address] Dr. Ibis Jimenez PPX Negative Normal NEGATIVE [facility] Comment on above: Performed By: #### B MP #### [facility] [address] [place] [address] Dr. Ibis Jimenez TCA Positive Abnormal NEGATIVE [facility] Comment on above: Performed By: #### B MP #### [facility] [address] [place] [address] Dr. Ibis Jimenez THC Positive Abnormal NEGATIVE [facility] Comment on above: Performed By: #### B MP #### [facility] [address] [place] [address] Dr. Ibis Jimenez ER URINE PROFILEon 3 Bilirubin Ql (U) Negative Normal NEGATIVE [facility] Comment on above: Performed By: #### A CET, SALYC #### [facility] [address] [place] [address] Dr. Ibis Jimenez Clarity (U) CLEAR Normal CLEAR [facility] Comment on above: Performed By: #### A CET, SALYC #### [facility] [address] [place] [address] Dr. Ibis Jimenez Color (U) YELLOW Normal YELLOW [facility] Comment on above: Performed By: #### A CET, SALYC #### [facility] [address] [place] [address] Dr. Ibis Garcia micrscopic examination will be performed if indicated. Normal [facility] Comment on above: Performed By: #### A CET, SALYC #### [facility] [address] [place] [address] Dr. Ibis Jimenez Glucose Ql (U) Negative Normal NEGATIVE [facility] Comment on above: Performed By: #### A CET, SALYC #### [facility] [address] [place] [address] Dr. Ibis Jimenez Hemoglobin Ql (U) Negative Normal NEGATIVE [facility] Comment on above: Performed By: #### A CET, SALYC #### [facility] [address] [place] [address] Dr. Ibis Jimenez Ketones Ql (U) Negative Normal NEGATIVE [facility] Comment on above: Performed By: #### A CET, SALYC #### [facility] [address] [place] [address] Dr. Ibis Jimenez LEUKOCYTES Negative Normal NEGATIVE [facility] Comment on above: Performed By: #### A CET, SALYC #### [facility] [address] [place] [address] Dr. Ibis Jimenez Nitrite Ql (U) Negative Normal NEGATIVE [facility] Comment on above: Performed By: #### A CET, SALYC #### [facility] [address] [place] [address] Dr. Ibis Jimeenz pH (U) 5.0 [pH] Normal 5-9 [facility] Comment on above: Performed By: #### A CET, SALYC #### [facility] [address] [place] [address] Dr. Ibis Jimenez SPEC GRAVITY >=1.030 Abnormal 1.005-<=1.02 5 [facility] Comment on above: Performed By: #### A CET, SALYC #### [facility] [address] [place] [address] Dr. Ibis Jimenez UA PROTEIN Negative Normal NEGATIVE/ TRACE [facility] Comment on above: Performed By: #### A CET, SALYC #### [facility] [address] [address] [address] Ibis Jimenez UR MICRO IND NOT INDICATED Normal [facility] Comment on above: Performed By: #### A CET, SALYC #### [facility] [address] [address] [address] Ibis Jimenez Urobilinogen Qn (U) 0.2 {Dinorah'U}/dL Normal 0.2 - 1. 0 [facility] Comment on above: Performed By: #### A CET, SALYC #### [facility] [address] [address] [address] Ibis Jimenez PROF CHEM 8 (BAS METB)on Anion gap [Moles/Vol] 13.1 mmol/L Normal [facility] Comment on above: Performed By: #### M DAVID #### [facility] [address] [address] [address] Ibis Jimenez Calcium [Mass/Vol] 8.3 mg/dL Critically low 8.5-10.1 [facility] Comment on above: Performed By: #### M DAVID #### [facility] [address] [address] [address] Ibis Jimenez Chloride [Moles/Vol] 109 mmol/L Critically high 98-107 [facility] Comment on above: Performed By: #### M DAVID #### [facility] [address] [address] [address] Ibis Jimenez CO2 [Moles/Vol] 25.7 mmol/L Normal 21.0-32.0 [facility] Comment on above: Performed By: #### M DAVID #### [facility] [address] [address] [address] Ibis Jimenez Creatinine [Mass/Vol] 0.82 mg/dL Normal 0.55-1.02 [facility] Comment on above: Performed By: #### M DAVID #### [facility] [address] [address] [address] Ibis Jimenez EGFR-AF INDIAN >60 Normal >=60 [facility] Comment on above: Performed By: #### M DAVID #### [facility] [address] [address] [address] Ibis Jimenez EGFR-NON AF INDIAN >60 Normal >=60 [facility] Comment on above: Performed By: #### M DAVID #### [facility] [address] [address] [address] Ibis Jimenez Glucose [Mass/Vol] 95 mg/dL Normal 74-106 [facility] Comment on above: Performed By: #### M DAVID #### [facility] [address] [address] [address] Ibis Jimenez Potassium [Moles/Vol] 3.8 mmol/L Normal 3.5-5.1 [facility] Comment on above: Performed By: #### M DAVID #### [facility] [address] [place] [address] Dr. Ibis Jimenez Sodium [Moles/Vol] 144 mmol/L Normal 136-145 [facility] Comment on above: Performed By: #### M DAVID #### [facility] [address] [address] [address] Ibis Jimenez Urea nitrogen [Mass/Vol] 16.0 mg/dL Normal 7.0-18.0 [facility] Comment on above: Performed By: #### M DAVID #### [facility] [address] [place] [address] Dr. Ibis Jimenez Urea nitrogen/Creatinine [Mass ratio] 19.5 mg/mg Normal [facility] Comment on above: Performed By: #### M DAVID #### [facility] [address] [address] [address] Ibsi Jimenez ACETAMINOPHENon 06-19-2022 Acetaminophen [Mass/Vol] ug/mL Critically low 10.0-30.0 [facility] Comment on above: Performed By: #### A CET, SALYC #### [facility] [address] [address] [address] Ibis Jimenez DRUG SCREEN RAPID (URINE)on 06-19-2022 AMP Negative Normal NEGATIVE [facility] Comment on above: Performed By: #### M DAVID #### [facility] [address] [address] [address] Ibis Jimenez BAR Positive Abnormal NEGATIVE [facility] Comment on above: Performed By: #### M DAVID #### [facility] [address] [place] [address] Dr. Ibis Jimenez BUP Negative Normal NEGATIVE [facility] Comment on above: Performed By: #### M DAVID #### [facility] [address] [place] [address] Dr. Ibis Jimenez BZO Positive Abnormal NEGATIVE [facility] Comment on above: Performed By: #### M DAVID #### [facility] [address] [place] [address] Dr. Ibis Jimenez SEMAJ Negative Normal NEGATIVE [facility] Comment on above: Performed By: #### M DAVID #### [facility] [address] [place] [address] Dr. Ibis Jimenez CUT-OFFS SEE BELOW Normal [facility] Comment on above: Result Comment: AMP [...] ng/mL Performed By: #### M DAVID #### [facility] [address] [place] [address] Dr. Ibis Jimenez DRUG CUT HEADER DRUG CLASS TEST SYSTEM CUT-OFF CONCENTRATIONS ARE FOLLOWS: Normal [facility] Comment on above: Performed By: #### M DAVID #### [facility] [address] [place] [address] Dr. Ibis Jimenez mAMP Negative Normal NEGATIVE [facility] Comment on above: Performed By: #### M DAVID #### [facility] [address] [address] [address] Ibis Jimenez MTD Negative Normal NEGATIVE [facility] Comment on above: Performed By: #### M DAVID #### [facility] [address] [address] [address] Ibis Jimenez OPI Positive Abnormal NEGATIVE [facility] Comment on above: Performed By: #### M DAVID #### [facility] [address] [address] [address] Ibis Jimenez OXY Negative Normal NEGATIVE [facility] Comment on above: Performed By: #### M DAVID #### [facility] [address] [address] [address] Ibis Jimenez PCP Negative Normal NEGATIVE [facility] Comment on above: Performed By: #### M DAVID #### [facility] [address] [place] [address] Dr. Ibis Jimenez PPX Negative Normal NEGATIVE [facility] Comment on above: Performed By: #### M DAVID #### [facility] [address] [address] [address] Ibis Jimenez TCA Negative Normal NEGATIVE [facility] Comment on above: Performed By: #### M DAVID #### [facility] [address] [address] [address] Ibis Jimenez THC Positive Abnormal NEGATIVE [facility] Comment on above: Performed By: #### M DAVID #### [facility] [address] [address] [address] Ibis Jimenez ER URINE PROFILEon 3 Bilirubin Ql (U) Negative Normal NEGATIVE [facility] Comment on above: Performed By: #### M DAVID #### [facility] [address] [place] [address] Dr. Ibis Jimenez Clarity (U) CLEAR Normal CLEAR [facility] Comment on above: Performed By: #### M DAVID #### [facility] [address] [place] [address] Dr. Ibis Jimenez Color (U) YELLOW Normal YELLOW [facility] Comment on above: Performed By: #### M DAVID #### [facility] [address] [address] [address] Ibis RODRIGUEZ A micrscopic examination will be performed if indicated. Normal [facility] Comment on above: Performed By: #### M DAVID #### [facility] [address] [address] [address] Ibis Jimenez Glucose Ql (U) Negative Normal NEGATIVE [facility] Comment on above: Performed By: #### M DAVID #### [facility] [address] [address] [address] Ibis Jimenez Hemoglobin Ql (U) TRACE-INTACT Abnormal NEGATIVE [facility] Comment on above: Performed By: #### M DAVID #### [facility] [address] [address] [address] Ibis Jimenez Ketones Ql (U) Negative Normal NEGATIVE [facility] Comment on above: Performed By: #### M DAVID #### [facility] [address] [address] [address] Ibis Jimenez LEUKOCYTES Negative Normal NEGATIVE [facility] Comment on above: Performed By: #### M DAVID #### [facility] [address] [address] [address] Ibis Jimenez Nitrite Ql (U) Negative Normal NEGATIVE [facility] Comment on above: Performed By: #### M DAVID #### [facility] [address] [address] [address] Ibis Jimenez pH (U) 6.0 [pH] Normal 5-9 [facility] Comment on above: Performed By: #### M DAVID #### [facility] [address] [address] [address] Ibis Jimenez Protein (U) [Mass/Vol] 30 mg/dL Abnormal NEGAT ADALGISA/ TRACE [facility] Comment on above: Performed By: #### M DAVID #### [facility] [address] [place] [address] Dr. Ibis Jimenez SPEC GRAVITY 1.025 Normal 1.005-<=1.02 5 [facility] Comment on above: Performed By: #### M DAVID #### [facility] [address] [address] [address] Ibis Jimenez UR MICRO IND INDICATED Normal [facility] Comment on above: Performed By: #### M DAVID #### [facility] [address] [address] [address] Ibis Jimenez Urobilinogen Qn (U) 0.2 {Dinorah'U}/dL Normal 0.2 - 1. 0 [facility] Comment on above: Performed By: #### M DAVID #### [facility] [address] [address] [address] Ibis Jimenez ETHANOL (BLD ALC)on 06-20-19 ALC NOTE NOTE: 80 mg/dl is the legal limit for a blood alcohol level Normal [facility] Comment on above: Performed By: #### A MM #### [facility] [address] [place] [address] Dr. Ibis Jimenez Ethanol [Mass/Vol] mg/dL Normal [facility] Comment on above: Performed By: #### A MM #### [facility] [address] [place] [address] Dr. Ibis Jimenez POINT OF CARE GLUCOSEon 05-23 Glucose [Mass/Vol] 88 mg/dL Normal 74-106 [facility] Comment on above: Performed By: #### C VDTBH #### [facility] [address] [place] [address] Dr. Ibis Jimenez URon 06-19-2022 , QUAL Negative Normal NEGATIVE [facility] Comment on above: Performed By: #### M DAVID #### [facility] [address] [address] [address] Ibis Jimenez PROF CHEM 8 (BAS METB)on Anion gap [Moles/Vol] 12.6 mmol/L Normal [facility] Comment on above: Performed By: #### A MM #### [facility] [address] [place] [address] Dr. Ibis Jimenez Calcium [Mass/Vol] 8.4 mg/dL Critically low 8.5-10.1 [facility] Comment on above: Performed By: #### A MM #### [facility] [address] [place] [address] Dr. Ibis Jimenez Chloride [Moles/Vol] 107 mmol/L Normal 98-107 [facility] Comment on above: Performed By: #### A MM #### [facility] [address] [place] [address] Dr. Ibis Jimenez CO2 [Moles/Vol] 22.5 mmol/L Normal 21.0-32.0 [facility] Comment on above: Performed By: #### A MM #### [facility] [address] [place] [address] Dr. Ibis Jimenez Creatinine [Mass/Vol] 0.82 mg/dL Normal 0.55-1.02 [facility] Comment on above: Performed By: #### A MM #### [facility] [address] [place] [address] Dr. Ibis Jimenez EGFR-AF INDIAN >60 Normal >=60 [facility] Comment on above: Performed By: #### A MM #### [facility] [address] [place] [address] Dr. Ibis Jimenez EGFR-NON AF INDIAN >60 Normal >=60 [facility] Comment on above: Performed By: #### A MM #### [facility] [address] [place] [address] Dr. Ibis Jimenez Glucose [Mass/Vol] 87 mg/dL Normal 74-106 [facility] Comment on above: Performed By: #### A MM #### [facility] [address] [place] [address] Dr. Ibis Jimenez Potassium [Moles/Vol] 4.1 mmol/L Normal 3.5-5.1 [facility] Comment on above: Performed By: #### A MM #### [facility] [address] [place] [address] Dr. Ibis Jimenez Sodium [Moles/Vol] 138 mmol/L Normal 136-145 [facility] Comment on above: Performed By: #### A MM #### [facility] [address] [address] [address] Ibis Jimenez Urea nitrogen [Mass/Vol] 22.0 mg/dL Critically high 7.0-18.0 [facility] Comment on above: Performed By: #### A MM #### [facility] [address] [place] [address] Dr. Ibis Jimenez Urea nitrogen/Creatinine [Mass ratio] 26.8 mg/mg Normal [facility] Comment on above: Performed By: #### A MM #### [facility] [address] [place] [address] Dr. Ibis Jimenez SALICYLATEon 06-19-2022 SALICYLATE <2.8 Normal <=19.9 [facility] Comment on above: Performed By: #### A CET, SALYC #### [facility] [address] [place] [address] Dr. Ibis Jimenez URINE MICROSCOPIC ONLYon BACTERIA NONE SEEN Normal NONE SEEN [facility] Comment on above: Performed By: #### M DAVID #### [facility] [address] [place] [address] Dr. Ibis Jimenez Bacteria identified Cx Nom (U) NOT INDICATED Normal [facility] Comment on above: Performed By: #### M DAVID #### [facility] [address] [place] [address] Dr. Ibis Jimenez CAST SEEN Abnormal NONE SEEN [facility] Comment on above: Performed By: #### M DAVID #### [facility] [address] [place] [address] Dr. Ibis Jimenez Crystals LM Nom (Urine sed) NONE SEEN Normal NONE SEEN [facility] Comment on above: Performed By: #### M DAVID #### [facility] [address] [place] [address] Dr. Ibis Jimenez Epithelial cells LM Ql (Urine sed) MODERATE Abnormal NONE SEEN /RARE [facility] Comment on above: Performed By: #### M DAVID #### [facility] [address] [place] [address] Dr. Ibis Jimenez HYALINE CAST FEW Normal [facility] Comment on above: Performed By: #### M DAVID #### [facility] [address] [address] [address] Ibis Jimenez MUCOUS NONE SEEN Normal NONE SEEN [facility] Comment on above: Performed By: #### M DAVID #### [facility] [address] [place] [address] Dr. Ibis Jimenez RBC 2-5 Abnormal 0-2 [facility] Comment on above: Performed By: #### M DAVID #### [facility] [address] [address] [address] Ibis Jimenez WBC NONE SEEN Normal NONE SEEN [facility] Comment on above: Performed By: #### M DAVID #### [facility] [address] [place] [address] Dr. Ibis Jimenez CBC AUTO DIFFon 06-11-2022 BASO # 0.0 103/ul Normal 0.0-0.1 [facility] Comment on above: Performed By: #### C VDTBH #### [facility] [address] [place] [address] Dr. Ibis Jimenez Basophils/100 WBC (Bld) 0.3 % Normal 0.2-2.0 [facility] Comment on above: Performed By: #### C VDTBH #### [facility] [address] [place] [address] Dr. Ibis Jimenez EO # 0.0 103/ul Normal 0.0-0.7 [facility] Comment on above: Performed By: #### C VDTBH #### [facility] [address] [place] [address] Dr. Ibis Jimenez Eosinophils/100 WBC (Bld) 0.1 % Critically low 0.9-7.0 [facility] Comment on above: Performed By: #### C VDTBH #### [facility] [address] [place] [address] Dr. Ibis Jimenez Erythrocyte distribution width (RBC) [Ratio] 13.2 % Normal 11.0-15.0 [facility] Comment on above: Performed By: #### C VDTBH #### [facility] [address] [place] [address] Dr. Ibis Jimenez Hematocrit (Bld) [Volume fraction] 38.5 % Normal 36.0-48.0 [facility] Comment on above: Performed By: #### C VDTBH #### [facility] [address] [place] [address] Dr. Ibis Jimenez Hemoglobin (Bld) [Mass/Vol] 12.4 g/dL Normal 12.0-16.0 [facility] Comment on above: Performed By: #### C VDTBH #### [facility] [address] [place] [address] Dr. Ibis Jimenez IG # 0.20 10e3/ul Critically high 0.00-0.03 [facility] Comment on above: Performed By: #### C VDTBH #### [facility] [address] [place] [address] Dr. Ibis Jimenez IG % 1.8 % Critically high 0.0-0.5 [facility] Comment on above: Performed By: #### C VDTBH #### [facility] [address] [place] [address] Dr. Ibis Jimenez LYMPH # 0.5 103/ul Critically low 1.2-3.8 [facility] Comment on above: Performed By: #### C VDTBH #### [facility] [address] [place] [address] Dr. Ibis Jimenez Lymphocytes/100 WBC (Bld) 4.6 % Critically low 20.5-60.0 [facility] Comment on above: Performed By: #### C VDTBH #### [facility] [address] [place] [address] Dr. Ibis Jimenez MANUAL DIFF REQ NO Normal [facility] Comment on above: Performed By: #### C VDTBH #### [facility] [address] [place] [address] Dr. Ibis Jimenez MCH (RBC) [Entitic mass] 28.2 pg Normal 26.7-34.0 [facility] Comment on above: Performed By: #### C VDTBH #### [facility] Laboratory [address] [place] [address] Dr. Ibis Jimenez MCHC (RBC) [Mass/Vol] 32.2 g/dL Normal 29.9-35.2 [facility] Comment on above: Performed By: #### C VDTBH #### [facility] [address] [place] [address] Dr. Ibis Jimenez MCV (RBC) [Entitic vol] 87.5 fL Normal 81.0-99.0 [facility] Comment on above: Performed By: #### C VDTBH #### [facility] [address] [place] [address] Dr. Ibis Jimenez MONO # 0.1 103/ul Critically low 0.3-0.8 [facility] Comment on above: Performed By: #### C VDTBH #### [facility] [address] [place] [address] Dr. Ibis Jimenez Monocytes/100 WBC (Bld) 1.3 % Critically low 1.7-12.0 [facility] Comment on above: Performed By: #### C VDTBH #### [facility] [address] [place] [address] Dr. Ibis Jimenez NEUT # 10.1 103/ul Critically high 1.4-6.5 [facility] Comment on above: Performed By: #### C VDTBH #### [facility] [address] [place] [address] Dr. Ibis Jimenez Neutrophils/100 WBC (Bld) 91.9 % Critically high 43.0-75.0 [facility] Comment on above: Performed By: #### C VDTBH #### [facility] [address] [place] [address] Dr. Ibis Jimenez Platelet mean volume (Bld) [Entitic vol] 9.1 fL Critically low 9.5-13.5 [facility] Comment on above: Performed By: #### C VDTBH #### [facility] [address] [place] [address] Dr. Ibis Jimenze PLT 240 103/ul Normal 150-450 [facility] Comment on above: Performed By: #### C VDTBH #### [facility] [address] [place] [address] Dr. Ibis Jimenez RBC 4.40 106/ul Normal 4.20-5.40 [facility] Comment on above: Performed By: #### C VDTBH #### [facility] [address] [place] [address] Dr. Ibis Jimenez WBC 11.0 103/ul Normal 4.0-11.0 [facility] Comment on above: Performed By: #### C VDTBH #### [facility] [address] [place] [address] Dr. Ibis Jimenez PROF 14(COMP METB)on 023 Albumin [Mass/Vol] 3.3 g/dL Critically low 3.4-5.0 [facility] Comment on above: Performed By: #### B MP #### [facility] [address] [place] [address] Dr. Ibis Jimenez Albumin/Globulin [Mass ratio] 0.9 {ratio} Normal [facility] Comment on above: Performed By: #### B MP #### [facility] [address] [place] [address] Dr. Ibis Jimenez ALP [Catalytic activity/Vol] 63 U/L Normal 46-116 [facility] Comment on above: Performed By: #### B MP #### [facility] [address] [place] [address] Dr. Ibis Jimenez ALT [Catalytic activity/Vol] 32 U/L Normal 14-59 [facility] Comment on above: Performed By: #### B MP #### [facility] [address] [place] [address] Dr. Ibis Jimenez Anion gap [Moles/Vol] 12.9 mmol/L Normal [facility] Comment on above: Performed By: #### B MP #### [facility] [address] [place] [address] Dr. Ibis Jimenez AST [Catalytic activity/Vol] 14 U/L Critically low 15-37 [facility] Comment on above: Performed By: #### B MP #### [facility] [address] [address] [address] Ibis Jimenez Bilirubin [Mass/Vol] 0.2 mg/dL Normal 0.2-1.0 [facility] Comment on above: Performed By: #### B MP #### [facility] [address] [address] [address] Ibis Jimenez Calcium [Mass/Vol] 8.5 mg/dL Normal 8.5-10.1 [facility] Comment on above: Performed By: #### B MP #### [facility] [address] [address] [address] Ibis Jimenez Chloride [Moles/Vol] 106 mmol/L Normal 98-107 [facility] Comment on above: Performed By: #### B MP #### [facility] [address] [address] [address] Ibis Jimenez CO2 [Moles/Vol] 26.6 mmol/L Normal 21.0-32.0 [facility] Comment on above: Performed By: #### B MP #### [facility] [address] [place] [address] Dr. Ibis Jimenez Creatinine [Mass/Vol] 0.89 mg/dL Normal 0.55-1.02 [facility] Comment on above: Performed By: #### B MP #### [facility] [address] [address] [address] Ibis Jimenez EGFR-AF INDIAN >60 Normal >=60 [facility] Comment on above: Performed By: #### B MP #### [facility] [address] [address] [address] Ibis Jimenez EGFR-NON AF INDIAN >60 Normal >=60 [facility] Comment on above: Performed By: #### B MP #### [facility] [address] [address] [address] Ibis Jimenez Globulin (S) [Mass/Vol] 3.6 g/dL Normal T [facility] Comment on above: Performed By: #### B MP #### [facility] [address] [address] [address] Ibis Jimenez Glucose [Mass/Vol] 134 mg/dL Critically high 74-106 T [facility] Comment on above: Performed By: #### B MP #### [facility] [address] [address] [address] Ibis Jimenez Potassium [Moles/Vol] 4.5 mmol/L Normal 3.5-5.1 [facility] Comment on above: Performed By: #### B MP #### [facility] [address] [address] [address] Ibis Jimenez Protein [Mass/Vol] 6.9 g/dL Normal 6.4-8.2 [facility] Comment on above: Performed By: #### B MP #### [facility] [address] [address] [address] Ibis Jimenez Sodium [Moles/Vol] 141 mmol/L Normal 136-145 [facility] Comment on above: Performed By: #### B MP #### [facility] [address] [address] [address] Ibis Jimenez Urea nitrogen [Mass/Vol] 15.0 mg/dL Normal 7.0-18.0 [facility] Comment on above: Performed By: #### B MP #### [facility] [address] [address] [address] Ibis Jimenez Urea nitrogen/Creatinine [Mass ratio] 16.9 mg/mg Normal [facility] Comment on above: Performed By: #### B MP #### [facility] [address] HEAD WO CONon [...] by: NICHOLAS MARCUS Date: 2022-05-23 19:25 Normal [facility] CT [place]SPINE WO CONon [address] [place] CERVICAL SPINE WITHOUT CONTRAST. [...] by: SINDY UNLU Date: 2022-05-23 19:41 Normal [facility] CBC W Auto Differential pane l (Bld)on 04-01-2022 Basophils (Bld) [#/Vol] 10*3/uL Normal <0.11 [facility] Comment on above: Order Comment: Speci men Type: BLOOD SPECIMEN Ordering Facility: [facility] Address: [address] [place] [id number] Performed By: #### 1 4334-7 #### [facility] CLIA [id number] [address] [place] [address] [place] Basophils/100 WBC (Bld) 0.1 % Normal [facility] Comment on above: Order Comment: Speci men Type: BLOOD SPECIMEN Ordering Facility: [facility] Address: [address] [place] [address] Performed By: #### 1 4334-7 #### [facility] CLIA [id number] [address] [place] [address] [place] Differential cell count method Nom (Bld) Auto Normal [facility] Comment on above: Order Comment: Speci men Type: BLOOD SPECIMEN Ordering Facility: [facility] Address: [address] [place] [address] Performed By: #### 1 4334-7 #### [facility] CLIA [id number] [address] [place] [address] [place] Eosinophils (Bld) [#/Vol] 10*3/uL Normal <0.46 [facility] Comment on above: Order Comment: Speci men Type: BLOOD SPECIMEN Ordering Facility: [facility] Address: [address] [place], [place] [address] Performed By: #### 1 4334-7 #### [facility] CLIA [id number] [address] [place] [address] [place] Eosinophils/100 WBC (Bld) 0.1 % Normal [facility] Comment on above: Order Comment: Speci men Type: BLOOD SPECIMEN Ordering Facility: [facility] Address: [address] [place], [place] [address] Performed By: #### 1 4334-7 #### [facility] CLIA [id number] [address] [place] [address] [place] Erythrocyte distribution width (RBC) [Ratio] 12.6 % Normal 11.5-15.0 [facility] Comment on above: Order Comment: Speci men Type: BLOOD SPECIMEN Ordering Facility: [facility] Address: [address] Performed By: #### 1 4334-7 #### [facility] CLIA [id number] [address] [place] [address] [place] Hematocrit (Bld) [Volume fraction] 40.6 % Normal 36.0-46.0 [facility] Comment on above: Order Comment: Speci men Type: BLOOD SPECIMEN Ordering Facility: [facility] Address: [address] Performed By: #### 1 4334-7 #### [facility] CLIA [id number] [address] [place] [address] [place] Hemoglobin (Bld) [Mass/Vol] 13.6 g/dL Normal 11.5-15.5 [facility] Comment on above: Order Comment: Speci men Type: BLOOD SPECIMEN Ordering Facility: [facility] Address: [address] Performed By: #### 1 4334-7 #### [facility] CLIA [id number] [address] [place] [address] [place] Immature granulocytes (Bld) [#/Vol] 0.04 10*3/uL Normal <0.10 [facility] Comment on above: Order Comment: Speci men Type: BLOOD SPECIMEN Ordering Facility: [facility] Address: [address] Performed By: #### 1 4334-7 #### [facility] CLIA [id number] [address] [place] [address] [place] Immature granulocytes/100 WBC (Bld) 0.5 % Normal [facility] Comment on above: Order Comment: Speci men Type: BLOOD SPECIMEN Ordering Facility: [facility] Address: [address] Performed By: #### 1 4334-7 #### [facility] CLIA [id number] [address] [place] [address] [place] Lymphocytes (Bld) [#/Vol] 0.84 10*3/uL Low 1.00-4.00 [facility] Comment on above: Order Comment: Speci men Type: BLOOD SPECIMEN Ordering Facility: [facility] Address: [address] [place] [address] Performed By: #### 1 4334-7 #### [facility] CLIA [id number] [address] [place] [address] [place] Lymphocytes/100 WBC (Bld) 9.5 % Normal [facility] Comment on above: Order Comment: Speci men Type: BLOOD SPECIMEN Ordering Facility: [facility] Address: [address] [place] [address] Performed By: #### 1 4334-7 #### [facility] CLIA [id number] [address] [place] [address] [place] MCH (RBC) [Entitic mass] 28.8 pg Normal 26.0-34.0 [facility] Comment on above: Order Comment: Speci men Type: BLOOD SPECIMEN Ordering Facility: [facility] Address: [address] [place] [address] Performed By: #### 1 4334-7 #### [facility] CLIA [id number] [address] [place] [address] [place] MCHC (RBC) [Mass/Vol] 33.5 g/dL Normal 30.5-36.0 [facility] Comment on above: Order Comment: Speci men Type: BLOOD SPECIMEN Ordering Facility: [facility] Address: [address] [place], [place] [address] Performed By: #### 1 4334-7 #### [facility] CLIA [id number] [address] [place] [address] [place] MCV (RBC) [Entitic vol] 85.8 fL Normal 80.0-100.0 [facility] Comment on above: Order Comment: Speci men Type: BLOOD SPECIMEN Ordering Facility: [facility] Address: [address] [place] [address] Performed By: #### 1 4334-7 #### [facility] CLIA [id number] [address] [place] [address] [place] Monocytes (Bld) [#/Vol] 0.06 10*3/uL Normal <0.87 [facility] Comment on above: Order Comment: Speci men Type: BLOOD SPECIMEN Ordering Facility: [facility] Address: [address] Performed By: #### 1 4334-7 #### [facility] CLIA [id number] [address] [place] [address] [place] Monocytes/100 WBC (Bld) 0.7 % Normal [facility] Comment on above: Order Comment: Speci men Type: BLOOD SPECIMEN Ordering Facility: [facility] Address: [address] Performed By: #### 1 4334-7 #### [facility] CLIA [id number] [address] [place] [address] [place] Neutrophils (Bld) [#/Vol] 7.87 10*3/uL High 1.45-7.50 [facility] Comment on above: Order Comment: Speci men Type: BLOOD SPECIMEN Ordering Facility: [facility] Address: [address] Performed By: #### 1 4334-7 #### [facility] CLIA [id number] [address] [place] [address] [place] Neutrophils/100 WBC (Bld) 89.1 % Normal [facility] Comment on above: Order Comment: Speci men Type: BLOOD SPECIMEN Ordering Facility: [facility] Address: [address] Performed By: #### 1 4334-7 #### [facility] CLIA [id number] [address] [place] [address] [place] Nucleated RBC (Bld) [#/Vol] 10*3/uL Normal <0.01 [facility] Comment on above: Order Comment: Speci men Type: BLOOD SPECIMEN Ordering Facility: [facility] Address: [address] [place] [address] Performed By: #### 1 4334-7 #### [facility] CLIA [id number] [address] [place] [address] [place] Nucleated RBC/100 WBC (Bld) [Ratio] 0.0 /100 WBC Normal [facility] Comment on above: Order Comment: Speci men Type: BLOOD SPECIMEN Ordering Facility: [facility] Address: [address] [place], [place] [address] Performed By: #### 1 4334-7 #### [facility] CLIA [id number] [address] [place] [address] [place] Platelet mean volume (Bld) [Entitic vol] 10.0 fL Normal 9.0-12.7 [facility] Comment on above: Order Comment: Speci men Type: BLOOD SPECIMEN Ordering Facility: [facility] Address: [address] [place] [phone] Performed By: #### 1 4334-7 #### [facility] CLIA [id number] [address] [place] [address] [place] Platelets (Bld) [#/Vol] 219 10*3/uL Normal 150-400 [facility] Comment on above: Order Comment: Speci men Type: BLOOD SPECIMEN Ordering Facility: [facility] Address: [address] [place] [address] Result Comment: No c lot detected. Performed By: #### 1 4334-7 #### [facility] CLIA [id number] [address] [place] [address] [place] RBC (Bld) [#/Vol] 4.73 10*6/uL Normal 3.90-5.20 [facility] Comment on above: Order Comment: Speci men Type: BLOOD SPECIMEN Ordering Facility: [facility] Address: [address] [place] [address] Performed By: #### 1 4334-7 #### [facility] CLIA [id number] [address] [place] [address] OF [facility] WBC (Bld) [#/Vol] 8.83 10*3/uL Normal 3.70-11.00 [facility] Comment on above: Order Comment: Speci men Type: BLOOD SPECIMEN Ordering Facility: [facility] Address: [address] [place] [address] Performed By: #### 1 4334-7 #### [facility] CLIA [id number] [address] [place] [address] OF [facility] CNDSon 04-01-2022 CNDS HNO ID: [id number] Author: Lo Coyle PA-C Service: Neurology Adult Epilepsy Author Type: Physician Horticultural Farmworker Type: Discharge Summary Filed: 04/01/2022 5:40 PM Note Text: ---- Attestation signed by David Goldman MD at 04/02/2022 9:36 AM [facility] ATTENDING NOTE Date of Service: April 02, 2022 [facility] STAFF PHYSICIAN NOTE OF PERSONAL INVOLVEMENT IN [...] I have performed the substantive portion including dvze-im-zhya and relevant services for a total of < 30 minutes. David Goldman MD Staff Physician [facility] [address] [place] [address] Office ---- DISCHARGE SUMMARY PATIENT NAME: Margaret [...] year old female who presented to the [facility] on 04/01/2022 for diagnosis. [...] Dr. Good (more content not included)... Normal [facility] CT HEAD WO CONon 04-01-2022 CT HEAD [...] ROBIN IRBY Date: 2022-03-31 22:40 Normal [facility] Comprehensive metabolic 2000 panelon 04-01-2022 Albumin [Mass/Vol] 4.2 g/dL Normal 3.9-4.9 [facility] Comment on above: Order Comment: Speci men Type: BLOOD SPECIMEN Ordering Facility: [facility] Address: [address] [address] Performed By: #### 1 4334-7 #### [facility] CLIA [id number] [address] [place] [address] [place] ALP [Catalytic activity/Vol] 84 U/L Normal 34-123 [facility] Comment on above: Order Comment: Speci men Type: BLOOD SPECIMEN Ordering Facility: [facility] Address: [address] Performed By: #### 1 4334-7 #### [facility] CLIA [id number] [address] [place] [address] [place] ALT [Catalytic activity/Vol] 12 U/L Normal 7-38 [facility] Comment on above: Order Comment: Speci men Type: BLOOD SPECIMEN Ordering Facility: [facility] Address: [address] [address] Performed By: #### 1 4334-7 #### [facility] CLIA [id number] [address] [place] [address] [place] Anion gap [Moles/Vol] 14 mmol/L Normal 9-18 [facility] Comment on above: Order Comment: Speci men Type: BLOOD SPECIMEN Ordering Facility: [facility] Address: [address] Performed By: #### 1 4334-7 #### [facility] CLIA [id number] [address] [place] [address] [place] AST [Catalytic activity/Vol] 14 U/L Normal 13-35 [facility] Comment on above: Order Comment: Speci men Type: BLOOD SPECIMEN Ordering Facility: [facility] Address: [address] [place] [address] Performed By: #### 1 4334-7 #### [facility] CLIA [id number] [address] [place] [address] [place] Bilirubin [Mass/Vol] 0.3 mg/dL Normal 0.2-1.3 [facility] Comment on above: Order Comment: Speci men Type: BLOOD SPECIMEN Ordering Facility: [facility] Address: [address] [place], [place] [address] Performed By: #### 1 4334-7 #### [facility] CLIA [id number] [address] [place] [address] [place] Calcium [Mass/Vol] 8.9 mg/dL Normal 8.5-10.2 [facility] Comment on above: Order Comment: Speci men Type: BLOOD SPECIMEN Ordering Facility: [facility] Address: [address] [place] [address] Performed By: #### 1 4334-7 #### [facility] CLIA [id number] [address] [place] [address] [place] Chloride [Moles/Vol] 105 mmol/L Normal 97-105 [facility] Comment on above: Order Comment: Speci men Type: BLOOD SPECIMEN Ordering Facility: [facility] Address: [address] [address] Performed By: #### 1 4334-7 #### [facility] CLIA [id number] [address] [place] [address] [place] CO2 [Moles/Vol] 20 mmol/L Low 22-30 [facility] Comment on above: Order Comment: Speci men Type: BLOOD SPECIMEN Ordering Facility: [facility] Address: [address] [address] Performed By: #### 1 4334-7 #### [facility] CLIA [id number] [address] [place] [address] OF [facility] Creatinine [Mass/Vol] 0.64 mg/dL Normal 0.58-0.96 [facility] Comment on above: Order Comment: Speci men Type: BLOOD SPECIMEN Ordering Facility: [facility] Address: [address] [address] Performed By: #### 1 4334-7 #### [facility] CLIA [id number] [address] [place] [address] ESTIMATED GLOMERULAR FILTRATION RATE 125 mL/min/1.73m??? Normal >=60 [facility] Comment on above: Order Comment: Speci men Type: BLOOD SPECIMEN Ordering Facility: [facility] Address: [address] [place] [address] Result Comment: Fatou mated Glomerular Filtration Rate [...] accurately reflect actual GFR. Performed By: #### 1 4334-7 #### [facility] CLIA [id number] [address] [place] [address] [place] Glucose [Mass/Vol] 120 mg/dL High 74-99 [facility] Comment on above: Order Comment: Speci men Type: BLOOD SPECIMEN Ordering Facility: [facility] Address: [address] [address] Result Comment: The [place] [employer] (ADA) provides guidance for cutoff [...] Standards of Medical Care in Diabetes 2016, [place] [employer]. Diabetes Care. 2016.39(Suppl 1). Performed By: #### 1 4334-7 #### [facility] CLIA [id number] [address] [place] [address] [place] Potassium [Moles/Vol] 4.5 mmol/L Normal 3.7-5.1 [facility] Comment on above: Order Comment: Chaitanya baker Type: BLOOD SPECIMEN Ordering Facility: [facility] Address: [address] [place] [address] Performed By: #### 1 4334-7 #### [facility] CLIA [id number] [address] [place] [address] [place] Protein [Mass/Vol] 6.9 g/dL Normal 6.3-8.0 [facility] Comment on above: Order Comment: Maria Luisai men Type: BLOOD SPECIMEN Ordering Facility: [facility] Address: [address] Performed By: #### 1 4334-7 #### [facility] CLIA [id number] [facility] [place] [address] [place] Sodium [Moles/Vol] 139 mmol/L Normal 136-144 [facility] Comment on above: Order Comment: Speci men Type: BLOOD SPECIMEN Ordering Facility: [facility] Address: [address] [address] Performed By: #### 1 4334-7 #### [facility] CLIA [id number] [address] [place] [address] [place] Urea nitrogen [Mass/Vol] 11 mg/dL Normal 7-21 [facility] Comment on above: Order Comment: Speci men Type: BLOOD SPECIMEN Ordering Facility: [facility] Address: [address] [address] Performed By: #### 1 4334-7 #### [facility] CLIA [id number] [address] [place] [address] OF [place] Covid-19 PCR (CVDTB)on 03-23 SARS-CoV-2 (COVID-19) RNA SAURABH+probe Ql (Unsp spec) Not detected Normal NOT DETECTED [facility] Comment on above: Result Comment: When [...] for this test is supported by the Emergency Vehicle Technician of Health and Human Service's declaration that [...] longer be used). Performed By: #### C VDTBH #### [facility] [address] [place] [address] Dr. Ibis Jimenez ECG COMPLETEon 04-01-2022 ECG COMPLETE Ventricular Rate : 98 BPM Atrial Rate : 98 BPM P-R Interval : 154 ms QRS Duration : 76 ms Q-T Interval : 364 ms QTC Calculation(Bazett) : 464 ms Calculated P Dema : 51 degrees Calculated R Dema : 60 degrees Calculated T Dema : 54 degrees NORMAL SINUS RHYTHM NORMAL ECG Confirmed by MD MELTON HEBA ([id number]) on 04/04/2022 2:47:00 PM NAME : MARGARET NICHOLSON PID : [id number] : 1995 Gender : Female Race : ORD : [id number] Procedure Date : Apr 01 2022 11:53:22 Edit Date : Apr 04 2022 14:47:01 Diagnosis: NORMAL SINUS RHYTHM NORMAL ECG Confirmed by MD MELTON HEBA ([id number]) on 04/04/2022 2:47:00 PM Test Reason : Chest Pain Location : 89 : M80 M080-06 Overread By : MD MELTON HEBA Edited By : MD MELTON HEBA Referred By : DINORAH IVY Acquired by : AUSTIN HSU Normal [facility] URINE PROFILEon 3 Bilirubin Ql (U) Negative Normal NEGATIVE [facility] Comment on above: Performed By: #### A CET SALYC #### [facility] [address] [place] [address] Dr. Ibis Jimenez Clarity (U) CLEAR Normal CLEAR [facility] Comment on above: Performed By: #### A CET, SALYC #### [facility] [address] [place] [address] Dr. Ibis Jimenez Color (U) YELLOW Normal YELLOW [facility] Comment on above: Performed By: #### A CET, SALYC #### [facility] [address] [place] [address] Dr. Ibis Jimenez ERUSYLVAIN A micrscopic examination will be performed if indicated. Normal [facility] Comment on above: Performed By: #### A CET, SALYC #### [facility] [address] [place] [address] Dr. Ibis Jimenez Glucose Ql (U) Negative Normal NEGATIVE [facility] Comment on above: Performed By: #### A CET, SALYC #### [facility] [address] [place] [address] Dr. Ibis Jimenez Hemoglobin Ql (U) SMALL Abnormal NEGATIVE [facility] Comment on above: Performed By: #### A CET, SALYC #### [facility] [address] [place] [address] Dr. Ibis Jimenez Ketones Ql (U) Negative Normal NEGATIVE [facility] Comment on above: Performed By: #### A CET, SALYC #### [facility] [address] [place] [address] Dr. Ibis Jimenez LEUKOCYTES Negative Normal NEGATIVE [facility] Comment on above: Performed By: #### A CET, SALYC #### [facility] [address] [place] [address] Dr. Ibis Jimenez Nitrite Ql (U) Negative Normal NEGATIVE [facility] Comment on above: Performed By: #### A CET, SALYC #### [facility] [address] [place] [address] Dr. Ibis Jimenez pH (U) 5.5 [pH] Normal 5-9 [facility] Comment on above: Performed By: #### A CET, SALYC #### [facility] [address] [place] [address] Dr. Ibis Jimenez SPEC GRAVITY >=1.030 Abnormal 1.005-<=1.[address] [place] [address] Comment on above: Performed By: #### A CET, SALYC #### [facility] [address] [place] [address] Dr. Ibis Jimenez UA PROTEIN Negative Normal NEGATIVE/ TRACE [facility] Comment on above: Performed By: #### A CET, SALYC #### [facility] [address] [place] [address] Dr. Ibis Jimenez UR MICRO IND INDICATED Normal [facility] Comment on above: Performed By: #### A CET, SALYC #### [facility] [address] [place] [address] Dr. Ibis Jimenez Urobilinogen Qn (U) 0.2 {Dinorah'U}/dL Normal 0.2 - 1. 0 [facility] Comment on above: Performed By: #### A KORI DAVIS #### [facility] [address] [address] [address] Ibis Jimenez HISTORY PHYSICALon 3 HISTORY PHYSICAL HNO ID: [id number] Author: David Goldman MD Service: Neurology Adult Epilepsy Author Type: Physician Type: HANDP Filed: 04/01/2022 5:15 PM Note Text: NEURO EPILEPSY ADMIT NOTE SERVICE DATE: 04/01/2022 SERVICE TIME: 5:10 AM NIGHT AND WEEKEND COVERAGE: After 5 pm and over the weekends, please page [phone] to contact the epilepsy resident/fellow/pro vider master control supervisor ATTENDING PHYSICIAN: Dr. Goldman [facility] UNIT: M60 - Adult Epilepsy Monitoring [...] transfer for seizure-like activity. Episodes began in 2018. [...] seizures. Margaret was transferred this morning from [place] [facility] for reported 15-16 seizures. She was given 1,000mg IV Keppra at 6 and a total of 4mg IV Ativan at (1mg at 2026, 1mg at 2118 and 2mg at 224). CT brain completed read as no acute intracranial abnormality. UA negative for infection. From ER records: Brought by her family's dean of men after she had some seizures at home. [...] After event, she complains memory issues/vision issues. [facility] admission documentation ([facility] [place]) ADMISSION DATE: 10/19/21 DISCHARGE DATE: 10/20/21 Patient was hooked up to mcfp video EEG monitoring or LTME. Overnight, patient [...] Onset: 2018 (more content not included)... Normal [facility] INFLUENZA A AND B AGon 04[facility] BELOW Normal [facility] Comment on above: Result Comment: Nega tive for Flu A protein angiten. Infection due to Flu A cannot be ruled out. Flu A angiten in the sample may be below the detection limit of the test. Performed By: #### A MM #### [facility] [address] [place] [address] Dr. Ibis Jim[facility] BEL[facility] Normal [facility] Comment on above: Result Comment: Nega tive for Flu B protein antigen. Infection due to Flu B cannot be ruled out. Flu B antigen in the sample may be below the detection limit of the test. Performed By: #### A MM #### [facility] [address] [place] [address] Dr. Ibis Jimenez INFLUENZA A AG Negative Normal NEGATIVE SEE COMMENT [facility] Comment on above: Performed By: #### A MM #### [facility] [address] [place] [address] Dr. Ibis Jimenez INFLUENZA B AG Negative Normal NEGATIVE SEE COMMENT [facility] Comment on above: Performed By: #### A MM #### [facility] [address] [place] [address] Dr. Ibis Jimenez LACTATE/LACTIC ACIDon 2022 Lactate [Moles/Vol] 1.9 mmol/L Normal 0.4-1.9 [facility] Comment on above: Performed By: #### L ACT #### [facility] [address] [address] [address] Ibis Jimenez [place] SerPl-sCncon 023 [place] [Moles/Vol] 0.1 mmol/L Low 0.6-1.2 [facility] Comment on above: Order Comment: Chaitanya baker Type: BLOOD SPECIMEN Ordering Facility: [facility] Address: [address] [place] [address] Result Comment: Refe rence ranges and high/low indicator flags are provided as general guidelines only. The treating physician must determine appropriate target levels/dosing based on the specific clinical situation. Performed By: #### 1 4334-7 #### [facility] CLIA [id number] [address] [place] [address] [place] Magnesium SerPl-mCncon 04-01 Magnesium [Mass/Vol] 1.8 mg/dL Normal 1.7-2.3 [facility] Comment on above: Order Comment: Chaitanya baker Type: BLOOD SPECIMEN Ordering Facility: [facility] Address: [address] [place] [address] Performed By: #### 1 4334-7 #### [facility] CLIA [id number] [address] [place] [address] [place] NURSING PROGon 04-01-2022 NURSING PROG HNO ID: [id number] Author: Gabino Cadena RN Service: Nursing Author [...] admission questions when patient condition allows. Normal [facility] Phosphate SerPl-mCncon 04-01 Phosphate [Mass/Vol] 2.7 mg/dL Normal 2.7-4.8 [facility] Comment on above: Order Comment: Chaitanya men Type: BLOOD SPECIMEN Ordering Facility: [facility] Address: [address] [id number] Performed By: #### 1 4334-7 #### [facility] CLIA [id number] [address] [place] [address] [place] SARS-CoV-2 RNA Resp Ql SAURABH+p robeon 04-01-2022 SARS-CoV-2 (COVID-19) RNA SAURABH+probe Ql (Resp) COVID 19 RESULT: Not detected The method used is RT-PCR or an equivalent NAAT method. Reference Range(the expected result in uninfected individuals): Not detected Normal [facility] Comment on above: Performed By: #### 9 4500-6 ####[facility] [id number] [address] [place] SOCIAL WORKon 04-01-2022 SOCIAL WORK HNO ID: [id number] Author: GABRIELE Huynh Service: Social Work Author Type: House Admin Type: Social Work Filed: 04/01/2022 4:21 PM [...] childhood stating that's confidential information when this sba underwriter asks about history of trauma during [...] informs she has income from her children's [employer] benefits. PSYCHIATRIC HISTORY: Per chart review, patient has a history of depression, anxiety, PTSD, and bipolar disorder; these diagnoses are confirmed by patient. She reports having a [facility], Lucy[facility] and also has a psychiatrist. Patient informs [...] health provide (more content not included)... Normal [facility] TSH SerPl-aCncon 04-01-2022 TSH Qn 0.537 m[IU]/L Normal 0.270-4.200 [facility] Comment on above: Order Comment: Speci men Type: BLOOD SPECIMEN Ordering Facility: [facility] Address: [address] [place] [id number] Result Comment: If t he patient is , TSH reference range varies by gestational period: First Trimester (weeks 9-12): 0.180-2.990 mIU/L Second Trimester: 0.110-3.980 mIU/L Third Trimester: 0.480-4.710 mIU/L Sanford Fernández et al. A Practical Approach for the Verifications and Determination of Site- and Trimester-Specific Reference Intervals for Thyroid Function tests in . Thyroid, 2019:29:3:412-420. Lior Gan et al. 2017 Guidelines of the [place] Thyroid [employer] for the Diagnosis and Management of Thyroid Disease during and the . Thyroid, 2017:27:3:315-389. Performed By: #### 1 4334-7 #### [facility] CLIA [id number] [address] [place] [address] [place] URINE MICROSCOPIC ONLYon BACTERIA TRACE Abnormal NONE SEEN [facility] Comment on above: Performed By: #### A CET, SALYC #### [facility] [address] [place] [address] Dr. Ibis Jimenez Bacteria identified Cx Nom (U) NOT INDICATED Normal [facility] Comment on above: Performed By: #### A CET, SALYC #### [facility] [address] [place] [address] Dr. Ibis Jimenez CAST NONE SEEN Normal NONE SEEN [facility] Comment on above: Performed By: #### A CET, SALYC #### [facility] [address] [place] [address] Dr. Ibis Jimneez Crystals LM Nom (Urine sed) NONE SEEN Normal NONE SEEN [facility] Comment on above: Performed By: #### A CET, SALYC #### [facility] [address] [place] [address] Dr. Ibis Jimenez Epithelial cells LM Ql (Urine sed) RARE Normal NONE SEEN /RARE [facility] Comment on above: Performed By: #### A CET, SALYC #### [facility] [address] [place] [address] Dr. Ibis Jimenez MUCOUS TRACE Abnormal NONE SEEN [facility] Comment on above: Performed By: #### A CET, SALYC #### [facility] [address] [place] [address] Dr. Ibis Jimenez RBC 0-2 Normal 0-2 [facility] Comment on above: Performed By: #### A CET, SALYC #### [facility] [address] [place] [address] Dr. Ibis Jimenez WBC NONE SEEN Normal NONE SEEN [facility] Comment on above: Performed By: #### A CET, SALYC #### [facility] [address] [place] [address] Dr. Ibis Jimenez AMMONIAon 03-31-2022 Ammonia (P) [Moles/Vol] 31 umol/L Normal 11-32 [facility] Comment on above: Performed By: #### A MM #### [facility] [address] [place] [address] Dr. Ibis Jimenez CBC AUTO DIFFon 03-31-2022 BASO # 0.0 103/ul Normal 0.0-0.1 [facility] Comment on above: Performed By: #### A MM #### [facility] [address] [place] [address] Dr. Ibis Jmienez Basophils/100 WBC (Bld) 0.4 % Normal 0.2-2.0 [facility] Comment on above: Performed By: #### A MM #### [facility] [address] [place] [address] Dr. Ibis Jimenez EO # 0.5 103/ul Normal 0.0-0.7 [facility] Comment on above: Performed By: #### A MM #### [facility] [address] [place] [address] Dr. Ibis Jimenez Eosinophils/100 WBC (Bld) 6.4 % Normal 0.9-7.0 [facility] Comment on above: Performed By: #### A MM #### [facility] [address] [place] [address] Dr. Ibis Jimenez Erythrocyte distribution width (RBC) [Ratio] 12.8 % Normal 11.0-15.0 [facility] Comment on above: Performed By: #### A MM #### [facility] [address] [place] [address] Dr. Ibis Jimenez Hematocrit (Bld) [Volume fraction] 36.6 % Normal 36.0-48.0 [facility] Comment on above: Performed By: #### A MM #### [facility] [address] [place] [address] Dr. Ibis Jimenez Hemoglobin (Bld) [Mass/Vol] 12.5 g/dL Normal 12.0-16.0 [facility] Comment on above: Performed By: #### A MM #### [facility] [address] [place] [address] Dr. Ibis Jimenez IG # 0.02 10e3/ul Normal 0.00-0.03 [facility] Comment on above: Performed By: #### A MM #### [facility] [address] [place] [address] Dr. Ibis Jimenez IG % 0.3 % Normal 0.0-0.5 [facility] Comment on above: Performed By: #### A MM #### [facility] [address] [place] [address] Dr. Ibis Jimenez LYMPH # 2.0 103/ul Normal 1.2-3.8 [facility] Comment on above: Performed By: #### A MM #### [facility] [address] [place] [address] Dr. Ibis Jimenez Lymphocytes/100 WBC (Bld) 25.0 % Normal 20.5-60.0 [facility] Comment on above: Performed By: #### A MM #### [facility] [address] [place] [address] Dr. Ibis Jimenez MANUAL DIFF REQ NO Normal [facility] Comment on above: Performed By: #### A MM #### [facility] [address] [place] [address] Dr. Ibis Jimenez MCH (RBC) [Entitic mass] 29.5 pg Normal 26.7-34.0 [facility] Comment on above: Performed By: #### A MM #### [facility] [address] [place] [address] Dr. Ibis Jimenez MCHC (RBC) [Mass/Vol] 34.2 g/dL Normal 29.9-35.2 [facility] Comment on above: Performed By: #### A MM #### [facility] [address] [place] [address] Dr. Ibis Jimenez MCV (RBC) [Entitic vol] 86.3 fL Normal 81.0-99.0 [facility] Comment on above: Performed By: #### A MM #### [facility] [address] [place] [address] Dr. Ibis Jimenez MONO # 0.4 103/ul Normal 0.3-0.8 [facility] Comment on above: Performed By: #### A MM #### [facility] [address] [place] [address] Dr. Ibis Jimenez Monocytes/100 WBC (Bld) 5.6 % Normal 1.7-12.0 T [facility] Comment on above: Performed By: #### A MM #### [facility] [address] [place] [address] Dr. Ibis Jimenez NEUT # 4.9 103/ul Normal 1.4-6.5 [facility] Comment on above: Performed By: #### A MM #### [facility] [address] [place] [address] Dr. Ibis Jimenez Neutrophils/100 WBC (Bld) 62.3 % Normal 43.0-75.0 [facility] Comment on above: Performed By: #### A MM #### [facility] [address] [place] [address] Dr. Ibis Jimenez Platelet mean volume (Bld) [Entitic vol] 9.5 fL Normal 9.5-13.5 [facility] Comment on above: Performed By: #### A MM #### [facility] [address] [place] [address] Dr. Ibis Jimenez PLT 246 103/ul Normal 150-450 [facility] Comment on above: Performed By: #### A MM #### [facility] [address] [place] [address] Dr. Ibis Jimenez RBC 4.24 106/ul Normal 4.20-5.40 [facility] Comment on above: Performed By: #### A MM #### [facility] [address] [place] [address] Dr. Ibis Jimenez WBC 7.8 103/ul Normal 4.0-11.0 [facility] Comment on above: Performed By: #### A MM #### [facility] [address] [place] [address] Dr. Ibis Jimenez CULTURE BLOODon 03-31-2022 Microscopic examination of blood, culture Culture Observations: NO GROWTH AT 5 DAYS. Normal [facility] Comment on above: Performed By: #### B LDCX2 #### [facility] [address] [place] [address] Dr. Ibis Jimenez Microscopic examination of blood, culture Culture Observations: NO GROWTH AT 5 DAYS. Normal [facility] Comment on above: Performed By: #### B MP #### [facility] [address] [place] [address] Dr. Ibis Jimenez LACTATE/LACTIC ACIDon 2022 Lactate [Moles/Vol] 2.8 mmol/L Critically high 0.4-1.9 [facility] Comment on above: Performed By: #### C VDTBH #### [facility] [address] [place] [address] Dr. Ibis Jimenez PROF 14(COMP METB)on 023 Albumin [Mass/Vol] 3.4 g/dL Normal 3.4-5.0 [facility] Comment on above: Performed By: #### B MP #### [facility] [address] [place] [address] Dr. Ibis Jimenez Albumin/Globulin [Mass ratio] 1.2 {ratio} Normal [facility] Comment on above: Performed By: #### B MP #### [facility] [address] [place] [address] Dr. Ibis Jimenez ALP [Catalytic activity/Vol] 85 U/L Normal 46-116 [facility] Comment on above: Performed By: #### B MP #### [facility] [address] [place] [address] Dr. Ibis Jimenez ALT [Catalytic activity/Vol] 18 U/L Normal 14-59 [facility] Comment on above: Performed By: #### B MP #### [facility] [address] [place] [address] Dr. Ibis Jimenez Anion gap [Moles/Vol] 13.2 mmol/L Normal [facility] Comment on above: Performed By: #### B MP #### [facility] [address] [place] [address] Dr. Ibis Jimenez AST [Catalytic activity/Vol] 11 U/L Critically low 15-37 [facility] Comment on above: Performed By: #### B MP #### [facility] [address] [address] [address] Ibis Jimenez Bilirubin [Mass/Vol] 0.2 mg/dL Normal 0.2-1.0 [facility] Comment on above: Performed By: #### B MP #### [facility] [address] [address] [address] Ibis Jimenez Calcium [Mass/Vol] 8.6 mg/dL Normal 8.5-10.1 [facility] Comment on above: Performed By: #### B MP #### [facility] [address] [address] [address] Ibis Jimenez Chloride [Moles/Vol] 105 mmol/L Normal 98-107 [facility] Comment on above: Performed By: #### B MP #### [facility] [address] [address] [address] Ibis Jimenez CO2 [Moles/Vol] 25.1 mmol/L Normal 21.0-32.0 [facility] Comment on above: Performed By: #### B MP #### [facility] [address] [address] [address] Ibis Jimenez Creatinine [Mass/Vol] 0.80 mg/dL Normal 0.55-1.02 [facility] Comment on above: Performed By: #### B MP #### [facility] [address] [address] [address] Ibis Jimenez EGFR-AF INDIAN >60 Normal >=60 [facility] Comment on above: Performed By: #### B MP #### [facility] [address] [address] [address] Ibis Jimenez EGFR-NON AF INDIAN >60 Normal >=60 [facility] Comment on above: Performed By: #### B MP #### [facility] [address] [address] [address] Ibis Jimenez Globulin (S) [Mass/Vol] 2.9 g/dL Normal T [facility] Comment on above: Performed By: #### B MP #### [facility] [address] [address] [address] Ibis Jimenez Glucose [Mass/Vol] 99 mg/dL Normal 74-106 [facility] Comment on above: Performed By: #### B MP #### [facility] [address] [address] [address] Ibis Jimenez Potassium [Moles/Vol] 3.3 mmol/L Critically low 3.5-5.1 [facility] Comment on above: Performed By: #### B MP #### [facility] [address] [address] [address] Ibis Jimenez Protein [Mass/Vol] 6.3 g/dL Critically low 6.4-8.2 [facility] Comment on above: Performed By: #### B MP #### [facility] [address] [place] [address] Dr. Ibis Jimenez Sodium [Moles/Vol] 140 mmol/L Normal 136-145 [facility] Comment on above: Performed By: #### B MP #### [facility] [address] [place] [address] Dr. Ibis Jimenez Urea nitrogen [Mass/Vol] 10.0 mg/dL Normal 7.0-18.0 [facility] Comment on above: Performed By: #### B MP #### [facility] [address] [place] [address] Dr. Ibis Jimenez Urea nitrogen/Creatinine [Mass ratio] 12.5 mg/mg Normal [facility] Comment on above: Performed By: #### B MP #### [facility] [address] [place] [address] Dr. Ibis Jimenez CBC AUTO DIFFon 01-14-2022 BASO # 0.0 103/ul Normal 0.0-0.1 [facility] Comment on above: Performed By: #### A MM #### [facility] [address] [place] [address] Dr. Ibis Jimenez Basophils/100 WBC (Bld) 0.3 % Normal 0.2-2.0 [facility] Comment on above: Performed By: #### A MM #### [facility] [address] [place] [address] Dr. Ibis Jimenez EO # 0.2 103/ul Normal 0.0-0.7 [facility] Comment on above: Performed By: #### A MM #### [facility] [address] [place] [address] Dr. Ibis Jimenez Eosinophils/100 WBC (Bld) 2.7 % Normal 0.9-7.0 [facility] Comment on above: Performed By: #### A MM #### [facility] [address] [place] [address] Dr. Ibis Jimenez Erythrocyte distribution width (RBC) [Ratio] 13.2 % Normal 11.0-15.0 [facility] Comment on above: Performed By: #### A MM #### [facility] [address] [place] [address] Dr. Ibis Jimenez Hematocrit (Bld) [Volume fraction] 35.7 % Critically low 36.0-48.0 [facility] Comment on above: Performed By: #### A MM #### [facility] [address] [place] [address] Dr. Ibis Jimenez Hemoglobin (Bld) [Mass/Vol] 12.2 g/dL Normal 12.0-16.0 [facility] Comment on above: Performed By: #### A MM #### [facility] [address] [place] [address] Dr. Ibis Jimenez IG # 0.04 10e3/ul Critically high 0.00-0.03 [facility] Comment on above: Performed By: #### A MM #### [facility] [address] [place] [address] Dr. Ibis Jimenez IG % 0.5 % Normal 0.0-0.5 [facility] Comment on above: Performed By: #### A MM #### [facility] [address] [place] [address] Dr. Ibis Jimenez LYMPH # 2.1 103/ul Normal 1.2-3.8 [facility] Comment on above: Performed By: #### A MM #### [facility] [address] [place] [address] Dr. Ibis Jimenez Lymphocytes/100 WBC (Bld) 27.3 % Normal 20.5-60.0 [facility] Comment on above: Performed By: #### A MM #### [facility] [address] [place] [address] Dr. Ibis Jimenez MANUAL DIFF REQ NO Normal [facility] Comment on above: Performed By: #### A MM #### [facility] [address] [place] [address] Dr. Ibis Jimenez MCH (RBC) [Entitic mass] 29.0 pg Normal 26.7-34.0 [facility] Comment on above: Performed By: #### A MM #### [facility] [address] [place] [address] Dr. Ibis Jimenez MCHC (RBC) [Mass/Vol] 34.2 g/dL Normal 29.9-35.2 [facility] Comment on above: Performed By: #### A MM #### [facility] [address] [place] [address] Dr. Ibis Jimenez MCV (RBC) [Entitic vol] 84.8 fL Normal 81.0-99.0 [facility] Comment on above: Performed By: #### A MM #### [facility] [address] [place] [address] Dr. Ibis Jimenez MONO # 0.7 103/ul Normal 0.3-0.8 [facility] Comment on above: Performed By: #### A MM #### [facility] [address] [place] [address] Dr. Ibis Jimenez Monocytes/100 WBC (Bld) 8.7 % Normal 1.7-12.0 [facility] Comment on above: Performed By: #### A MM #### [facility] [address] [place] [address] Dr. Ibis Jimenez NEUT # 4.7 103/ul Normal 1.4-6.5 [facility] Comment on above: Performed By: #### A MM #### [facility] [address] [place] [address] Dr. Ibis Jimenez Neutrophils/100 WBC (Bld) 60.5 % Normal 43.0-75.0 [facility] Comment on above: Performed By: #### A MM #### [facility] [address] [place] [address] Dr. Ibis Jimenez Platelet mean volume (Bld) [Entitic vol] 9.6 fL Normal 9.5-13.5 [facility] Comment on above: Performed By: #### A MM #### [facility] [address] [place] [address] Dr. Ibis Jimenez PLT 212 103/ul Normal 150-450 [facility] Comment on above: Performed By: #### A MM #### [facility] [address] [place] [address] Dr. Ibis Jimenez RBC 4.21 106/ul Normal 4.20-5.40 [facility] Comment on above: Performed By: #### A MM #### [facility] [address] [place] [address] Dr. Ibis Jimenez WBC 7.7 103/ul Normal 4.0-11.0 [facility] Comment on above: Performed By: #### A MM #### [facility] [address] [place] [address] ABD/PELV W CONon [...] TONY DAHL Date: 2022-01-14 20:01 Normal [facility] ER URINE PROFILEon 2 Bilirubin Ql (U) Negative Normal NEGATIVE [facility] Comment on above: Performed By: #### A CET, SALYC #### [facility] [address] [place] [address] Dr. Ibis Jimenez Clarity (U) CLEAR Normal CLEAR [facility] Comment on above: Performed By: #### A CET, SALYC #### [facility] [address] [place] [address] Dr. Ibis Jimenez Color (U) LT. YELLOW Normal YELLOW [facility] Comment on above: Performed By: #### A CET, SALYC #### [facility] [address] [place] [address] Dr. Ibis Jimenez ERUAHKishan A micrscopic examination will be performed if indicated. Normal [facility] Comment on above: Performed By: #### A CET, SALYC #### [facility] [address] [place] [address] Dr. Ibis Jimenez Glucose Ql (U) Negative Normal NEGATIVE [facility] Comment on above: Performed By: #### A CET, SALYC #### [facility] [address] [place] [address] Dr. Ibis Jimenez Hemoglobin Ql (U) Negative Normal NEGATIVE [facility] Comment on above: Performed By: #### A CET, SALYC #### [facility] [address] [place] [address] Dr. Ibis Jimenez Ketones Ql (U) Negative Normal NEGATIVE [facility] Comment on above: Performed By: #### A CET, SALYC #### [facility] [address] [place] [address] Dr. Ibis Jimenez LEUKOCYTES TRACE Abnormal NEGATIVE [facility] Comment on above: Performed By: #### A CET, SALYC #### [facility] [address] [place] [address] Dr. Ibis Jimenez Nitrite Ql (U) Negative Normal NEGATIVE [facility] Comment on above: Performed By: #### A CET, SALYC #### [facility] [address] [place] [address] Dr. Ibis Jimenez pH (U) 5.5 [pH] Normal 5-9 [facility] Comment on above: Performed By: #### A CET, SALYC #### [facility] [address] [place] [address] Dr. Ibis Jimenez SPEC GRAVITY 1.025 Normal 1.005-<=1.02 5 [facility] Comment on above: Performed By: #### A CET, SALYC #### [facility] [address] [place] [address] Dr. Ibis Jimenez UA PROTEIN Negative Normal NEGATIVE/ TRACE [facility] Comment on above: Performed By: #### A CET, SALYC #### [facility] [address] [place] [address] Dr. Ibis Jimenez UR MICRO IND INDICATED Normal [facility] Comment on above: Performed By: #### A CET, SALYC #### [facility] [address] [place] [address] Dr. Ibis Jimenez Urobilinogen Qn (U) 0.2 {Dinorah'U}/dL Normal 0.2 - 1. 0 [facility] Comment on above: Performed By: #### A CET, SALYC #### [facility] [address] [address] [address] Ibis Jimenez URon 01-14-2022 , QUAL Negative Normal NEGATIVE [facility] Comment on above: Performed By: #### A KORI DAVIS #### [facility] [address] [address] [address] Ibis Jimenez PROF CHEM 8 (BAS METB)on Anion gap [Moles/Vol] 9.9 mmol/L Normal [facility] Comment on above: Performed By: #### B MP #### [facility] [address] [address] [address] Ibis Jimenez Calcium [Mass/Vol] 8.6 mg/dL Normal 8.5-10.1 [facility] Comment on above: Performed By: #### B MP #### [facility] [address] [place] [address] Dr. Ibis Jimenez Chloride [Moles/Vol] 105 mmol/L Normal 98-107 [facility] Comment on above: Performed By: #### B MP #### [facility] [address] [address] [address] Ibis Jimenez CO2 [Moles/Vol] 27.5 mmol/L Normal 21.0-32.0 [facility] Comment on above: Performed By: #### B MP #### [facility] [address] [address] [address] Ibis Jimenez Creatinine [Mass/Vol] 0.70 mg/dL Normal 0.55-1.02 [facility] Comment on above: Performed By: #### B MP #### [facility] [address] [address] [address] Ibis Jimenez EGFR-AF INDIAN >60 Normal >=60 [facility] Comment on above: Performed By: #### B MP #### [facility] [address] [place] [address] Dr. Ibis Jimenez EGFR-NON AF INDIAN >60 Normal >=60 [facility] Comment on above: Performed By: #### B MP #### [facility] [address] [address] [address] Ibis Jimenez Glucose [Mass/Vol] 83 mg/dL Normal 74-106 [facility] Comment on above: Performed By: #### B MP #### [facility] [address] [place] [address] Dr. Ibis Jimenez Potassium [Moles/Vol] 4.4 mmol/L Normal 3.5-5.1 [facility] Comment on above: Performed By: #### B MP #### [facility] [address] [place] [address] Dr. Ibis Jimenez Sodium [Moles/Vol] 138 mmol/L Normal 136-145 [facility] Comment on above: Performed By: #### B MP #### [facility] [address] [place] [address] Dr. Ibis Jimenez Urea nitrogen [Mass/Vol] 13.0 mg/dL Normal 7.0-18.0 [facility] Comment on above: Performed By: #### B MP #### [facility] [address] [place] [address] Dr. Ibis Jimenez Urea nitrogen/Creatinine [Mass ratio] 18.6 mg/mg Normal [facility] Comment on above: Performed By: #### B MP #### [facility] [address] [place] [address] Dr. Ibis Jimenez URINE MICROSCOPIC ONLYon BACTERIA NONE SEEN Normal NONE SEEN [facility] Comment on above: Performed By: #### A CET SALYC #### [facility] [address] [place] [address] Dr. Ibis Jimenez Bacteria identified Cx Nom (U) NOT INDICATED Normal [facility] Comment on above: Performed By: #### A CET, SALYC #### [facility] [address] [place] [address] Dr. Ibis Jimenez CAST NONE SEEN Normal NONE SEEN [facility] Comment on above: Performed By: #### A CET, SALYC #### [facility] [address] [place] [address] Dr. Ibis Jimenez Crystals LM Nom (Urine sed) NONE SEEN Normal NONE SEEN [facility] Comment on above: Performed By: #### A CET, SALYC #### [facility] [address] [place] [address] Dr. Ibis Jimenez Epithelial cells LM Ql (Urine sed) FEW Abnormal NONE SEEN /RARE [facility] Comment on above: Performed By: #### A CET, SALYC #### [facility] [address] [place] [address] Dr. Ibis Jimenez MUCOUS NONE SEEN Normal NONE SEEN [facility] Comment on above: Performed By: #### A CET, SALYC #### [facility] [address] [place] [address] Dr. Ibis Jimenez RBC NONE SEEN Abnormal 0-2 [facility] Comment on above: Performed By: #### A CET, SALYC #### [facility] [address] [place] [address] Dr. Ibis Jimenez WBC NONE SEEN Normal NONE SEEN [facility] Comment on above: Performed By: #### A CET, SALYC #### [facility] [address] [place] [address] Dr. Ibis Jimenez CBC AUTO DIFFon 01-07-2022 BASO # 0.0 103/ul Normal 0.0-0.1 [facility] Comment on above: Performed By: #### A CET, SALYC #### [facility] [address] [place] [address] Dr. Ibis Jimenez Basophils/100 WBC (Bld) 0.2 % Normal 0.2-2.0 [facility] Comment on above: Performed By: #### A CET, SALYC #### [facility] [address] [place] [address] Dr. Ibis Jimenez EO # 0.0 103/ul Normal 0.0-0.7 [facility] Comment on above: Performed By: #### A CET, SALYC #### [facility] [address] [place] [address] Dr. Ibis Jimenez Eosinophils/100 WBC (Bld) 0.4 % Critically low 0.9-7.0 [facility] Comment on above: Performed By: #### A CET, SALYC #### [facility] [address] [address] [address] Ibis Jimenez Erythrocyte distribution width (RBC) [Ratio] 13.2 % Normal 11.0-15.0 [facility] Comment on above: Performed By: #### A CET, SALYC #### [facility] [address] [place] [address] Dr. Ibis Jimenez Hematocrit (Bld) [Volume fraction] 39.7 % Normal 36.0-48.0 [facility] Comment on above: Performed By: #### A CET, SALYC #### [facility] [address] [place] [address] Dr. Ibis Jimenez Hemoglobin (Bld) [Mass/Vol] 13.4 g/dL Normal 12.0-16.0 [facility] Comment on above: Performed By: #### A CET, SALYC #### [facility] [address] [place] [address] Dr. Ibis Jimenez IG # 0.06 10e3/ul Critically high 0.00-0.03 [facility] Comment on above: Performed By: #### A CET, SALYC #### [facility] [address] [place] [address] Dr. Ibis Jimenez IG % 0.5 % Normal 0.0-0.5 [facility] Comment on above: Performed By: #### A CET, SALYC #### [facility] [address] [place] [address] Dr. Ibis Jimenez LYMPH # 2.6 103/ul Normal 1.2-3.8 [facility] Comment on above: Performed By: #### A CET, SALYC #### [facility] [address] [place] [address] Dr. Ibis Jimenez Lymphocytes/100 WBC (Bld) 23.8 % Normal 20.5-60.0 [facility] Comment on above: Performed By: #### A CET, SALYC #### [facility] [address] [place] [address] Dr. Ibis Jimenez MANUAL DIFF REQ NO Normal [facility] Comment on above: Performed By: #### A CET, SALYC #### [facility] [address] [place] [address] Dr. Ibis Jimenez MCH (RBC) [Entitic mass] 28.8 pg Normal 26.7-34.0 [facility] Comment on above: Performed By: #### A CET, SALYC #### [facility] [address] [place] [address] Dr. Ibis Jimenez MCHC (RBC) [Mass/Vol] 33.8 g/dL Normal 29.9-35.2 [facility] Comment on above: Performed By: #### A CET, SALYC #### [facility] [address] [place] [address] Dr. Ibis Jimenez MCV (RBC) [Entitic vol] 85.2 fL Normal 81.0-99.0 [facility] Comment on above: Performed By: #### A CET, SALYC #### [facility] [address] [place] [address] Dr. Ibis Jimenez MONO # 0.8 103/ul Normal 0.3-0.8 [facility] Comment on above: Performed By: #### A CET, SALYC #### [facility] [address] [place] [address] Dr. Ibis Jimenez Monocytes/100 WBC (Bld) 7.7 % Normal 1.7-12.0 [facility] Comment on above: Performed By: #### A CET, SALYC #### [facility] [address] [place] [address] Dr. Ibis Jimenez NEUT # 7.4 103/ul Critically high 1.4-6.5 [facility] Comment on above: Performed By: #### A CET, SALYC #### [facility] [address] [place] [address] Dr. Ibis Jimenez Neutrophils/100 WBC (Bld) 67.4 % Normal 43.0-75.0 [facility] Comment on above: Performed By: #### A CET, SALYC #### [facility] [address] [place] [address] Dr. Ibis Jimenez Platelet mean volume (Bld) [Entitic vol] 9.8 fL Normal 9.5-13.5 [facility] Comment on above: Performed By: #### A CET, SALYC #### [facility] [address] [place] [address] Dr. Ibis Jimenez PLT 261 103/ul Normal 150-450 [facility] Comment on above: Performed By: #### A CET, SALYC #### [facility] [address] [place] [address] Dr. Ibis Jimenez RBC 4.66 106/ul Normal 4.20-5.40 [facility] Comment on above: Performed By: #### A CET, SALYC #### [facility] [address] [place] [address] Dr. Ibis Jimenez WBC 10.9 103/ul Normal 4.0-11.0 [facility] Comment on above: Performed By: #### A CET, SALYC #### [facility] [address] [place] [address] Dr. Ibis Jimenez PROF CHEM 8 (BAS METB)on Anion gap [Moles/Vol] 14.1 mmol/L Normal [facility] Comment on above: Performed By: #### B MP #### [facility] [address] [place] [address] Dr. Ibis Jimenez Calcium [Mass/Vol] 8.5 mg/dL Normal 8.5-10.1 [facility] Comment on above: Performed By: #### B MP #### [facility] [address] [place] [address] Dr. Ibis Jimenez Chloride [Moles/Vol] 103 mmol/L Normal 98-107 [facility] Comment on above: Performed By: #### B MP #### [facility] [address] [place] [address] Dr. Ibis Jimenez CO2 [Moles/Vol] 22.5 mmol/L Normal 21.0-32.0 [facility] Comment on above: Performed By: #### B MP #### [facility] [address] [place] [address] Dr. Ibis Jimenez Creatinine [Mass/Vol] 0.64 mg/dL Normal 0.55-1.02 [facility] Comment on above: Performed By: #### B MP #### [facility] [address] [place] [address] Dr. Ibis Jimenez EGFR-AF INDIAN >60 Normal >=60 [facility] Comment on above: Performed By: #### B MP #### [facility] [address] [place] [address] Dr. Ibis Jimenez EGFR-NON AF INDIAN >60 Normal >=60 [facility] Comment on above: Performed By: #### B MP #### [facility] [address] [address] [address] Ibis Jimenez Glucose [Mass/Vol] 141 mg/dL Critically high 74-106 [facility] Comment on above: Performed By: #### B MP #### [facility] [address] [place] [address] Dr. Ibis Jimenez Potassium [Moles/Vol] 3.6 mmol/L Normal 3.5-5.1 [facility] Comment on above: Performed By: #### B MP #### [facility] [address] [place] [address] Dr. Ibis Jimenez Sodium [Moles/Vol] 136 mmol/L Normal 136-145 [facility] Comment on above: Performed By: #### B MP #### [facility] [address] [place] [address] Dr. Ibis Jimenez Urea nitrogen [Mass/Vol] 16.0 mg/dL Normal 7.0-18.0 [facility] Comment on above: Performed By: #### B MP #### [facility] [address] [place] [address] Dr. Ibis Jimenez Urea nitrogen/Creatinine [Mass ratio] 25.0 mg/mg Normal [facility] Comment on above: Performed By: #### B MP #### [facility] [address] [place] [address] Dr. Ibis Jimenez CBC AUTO DIFFon 11-04-2021 BASO # 0.0 103/ul Normal 0.0-0.1 [facility] Comment on above: Performed By: #### A CET, SALYC #### [facility] [address] [place] [address] Dr. Ibis Jimenez Basophils/100 WBC (Bld) 0.4 % Normal 0.2-2.0 [facility] Comment on above: Performed By: #### A CET, SALYC #### [facility] [address] [place] [address] Dr. Ibis Jimenez EO # 0.2 103/ul Normal 0.0-0.7 [facility] Comment on above: Performed By: #### A CET, SALYC #### [facility] [address] [place] [address] Dr. Ibis Jimenez Eosinophils/100 WBC (Bld) 4.1 % Normal 0.9-7.0 [facility] Comment on above: Performed By: #### A CET, SALYC #### [facility] [address] [place] [address] Dr. Ibis Jimenez Erythrocyte distribution width (RBC) [Ratio] 13.2 % Normal 11.0-15.0 [facility] Comment on above: Performed By: #### A CET, SALYC #### [facility] [address] [place] [address] Dr. Ibis Jimenez Hematocrit (Bld) [Volume fraction] 34.3 % Critically low 36.0-48.0 [facility] Comment on above: Performed By: #### A CET, SALYC #### [facility] [address] [place] [address] Dr. Ibis Jimenez Hemoglobin (Bld) [Mass/Vol] 11.5 g/dL Critically low 12.0-16.0 [facility] Comment on above: Performed By: #### A CET, SALYC #### [facility] [address] [place] [address] Dr. Ibis Jimenez IG # 0.01 10e3/ul Normal 0.00-0.03 [facility] Comment on above: Performed By: #### A CET, SALYC #### [facility] [address] [place] [address] Dr. Ibis Jimenez IG % 0.2 % Normal 0.0-0.5 [facility] Comment on above: Performed By: #### A CET, SALYC #### [facility] [address] [place] [address] Dr. Ibis Jimenez LYMPH # 1.5 103/ul Normal 1.2-3.8 [facility] Comment on above: Performed By: #### A CET, SALYC #### [facility] [address] [place] [address] Dr. Ibis Jimenez Lymphocytes/100 WBC (Bld) 26.4 % Normal 20.5-60.0 [facility] Comment on above: Performed By: #### A CET, SALYC #### [facility] [address] [place] [address] Dr. Ibis Jimenez MANUAL DIFF REQ NO Normal [facility] Comment on above: Performed By: #### A CET, SALYC #### [facility] [address] [place] [address] Dr. Ibis Jimenez MCH (RBC) [Entitic mass] 28.8 pg Normal 26.7-34.0 [facility] Comment on above: Performed By: #### A CET, SALYC #### [facility] [address] [place] [address] Dr. Ibis Jimenez MCHC (RBC) [Mass/Vol] 33.5 g/dL Normal 29.9-35.2 [facility] Comment on above: Performed By: #### A CET, SALYC #### [facility] [address] [place] [address] Dr. Ibis Jimenez MCV (RBC) [Entitic vol] 86.0 fL Normal 81.0-99.0 [facility] Comment on above: Performed By: #### A CET, SALYC #### [facility] [address] [place] [address] Dr. Ibis Jimenez MONO # 0.5 103/ul Normal 0.3-0.8 [facility] Comment on above: Performed By: #### A CET, SALYC #### [facility] [address] [address] [address] Ibis Jimenez Monocytes/100 WBC (Bld) 8.2 % Normal 1.7-12.0 [facility] Comment on above: Performed By: #### A CET, SALYC #### [facility] [address] [place] [address] Dr. Ibis Jimenez NEUT # 3.4 103/ul Normal 1.4-6.5 [facility] Comment on above: Performed By: #### A CET, SALYC #### [facility] [address] [place] [address] Dr. Ibis Jimenez Neutrophils/100 WBC (Bld) 60.7 % Normal 43.0-75.0 [facility] Comment on above: Performed By: #### A CET, SALYC #### [facility] [address] [place] [address] Dr. Ibis Jimenez Platelet mean volume (Bld) [Entitic vol] 9.9 fL Normal 9.5-13.5 [facility] Comment on above: Performed By: #### A CET, SALYC #### [facility] [address] [place] [address] Dr. Ibis Jimenez PLT 222 103/ul Normal 150-450 [facility] Comment on above: Performed By: #### A CET, SALYC #### [facility] [address] [place] [address] Dr. Ibis Jimenez RBC 3.99 106/ul Critically low 4.20-5.40 [facility] Comment on above: Performed By: #### A CET, SALYC #### [facility] [address] [place] [address] Dr. Ibis Jimenez WBC 5.6 103/ul Normal 4.0-11.0 [facility] Comment on above: Performed By: #### A CET, SALYC #### [facility] [address] [place] [address] Dr. Ibis Jimenez PROF CHEM 8 (BAS METB)on Anion gap [Moles/Vol] 10.5 mmol/L Normal [facility] Comment on above: Performed By: #### B MP #### [facility] [address] [address] [address] Ibis Jimenez Calcium [Mass/Vol] 8.8 mg/dL Normal 8.5-10.1 [facility] Comment on above: Performed By: #### B MP #### [facility] [address] [address] [address] Ibis Jimenez Chloride [Moles/Vol] 105 mmol/L Normal 98-107 [facility] Comment on above: Performed By: #### B MP #### [facility] [address] [address] [address] Ibis Jimenez CO2 [Moles/Vol] 24.9 mmol/L Normal 21.0-32.0 [facility] Comment on above: Performed By: #### B MP #### [facility] [address] [address] [address] Ibis Jimenez Creatinine [Mass/Vol] 0.71 mg/dL Normal 0.55-1.02 [facility] Comment on above: Performed By: #### B MP #### [facility] [address] [address] [address] Ibis Jimenez EGFR-AF INDIAN >60 Normal >=60 [facility] Comment on above: Performed By: #### B MP #### [facility] [address] [address] [address] Ibis Jimenez EGFR-NON AF INDIAN >60 Normal >=60 [facility] Comment on above: Performed By: #### B MP #### [facility] [address] [address] [address] Ibis Jimenez Glucose [Mass/Vol] 103 mg/dL Normal 74-106 [facility] Comment on above: Performed By: #### B MP #### [facility] [address] [address] [address] Ibis Jimenez Potassium [Moles/Vol] 3.4 mmol/L Critically low 3.5-5.1 [facility] Comment on above: Performed By: #### B MP #### [facility] [address] [place], [place] [address] Dr. Ibis Jimenez Sodium [Moles/Vol] 137 mmol/L Normal 136-145 [facility] Comment on above: Performed By: #### B MP #### [facility] [facility] [address] [place], [place] [address] Dr. Ibis Jimenez Urea nitrogen [Mass/Vol] 17.0 mg/dL Normal 7.0-18.0 [facility] Comment on above: Performed By: #### B MP #### [facility] [address] [place], [place] [address] Dr. Ibis Jimenez Urea nitrogen/Creatinine [Mass ratio] 23.9 mg/mg Normal [facility] Comment on above: Performed By: #### B MP #### [facility] [address] [place], [place] [address] Dr. Ibis Jimenez Basic Metab w/rfx MGon 10-20 (cont.) Normal [facility] Comment on above: Result Comment: Aver age GFR for 20-29 years old: 116 mL/min/1.73sq m Chronic Kidney Disease: <60 mL/min/1.73sq m Kidney failure: <15 mL/min/1.73sq m eGFR calculated using average adult body mass. Additional eGFR calculator available at: http://www.[employer]/multiple_crcl_2012.htm Performed By: #### B MPX #### [facility] [employer] [address] [place] [address] [employer]: Tavon Nicole MD Anion gap [Moles/Vol] 10 mmol/L Normal 9-17 [facility] Comment on above: Performed By: #### B MPX #### [facility] [employer] [address] [place] [phone] [employer]: Tavon Nicole MD Calcium [Mass/Vol] 7.8 mg/dL Low 8.6-10.4 [facility] Comment on above: Performed By: #### B MPX #### [address] [address] [employer]: Tavon Nicole MD Chloride [Moles/Vol] 109 mmol/L High 98-107 [facility] Comment on above: Performed By: #### B MPX #### [facility] [address] [place] [address] [employer]: Tavon Nicole MD CO2 [Moles/Vol] 20 mmol/L Normal 20-31 [facility] Comment on above: Performed By: #### B MPX #### [address] [address] [employer]: Tavon Nicole MD Creatinine [Mass/Vol] 0.45 mg/dL Low 0.50-0.90 [facility] Comment on above: Performed By: #### B MPX #### [address] [address] [employer]: Tavon Nicole MD GFR, Amer >60 Normal >60 [facility] Comment on above: Performed By: #### B MPX #### [address] [address] [employer]: Tavon Nicole MD GFR,non Amer >60 Normal >60 [facility] Comment on above: Performed By: #### B MPX #### [address] [address] [employer]: Tavon Nicole MD Glucose [Mass/Vol] 84 mg/dL Normal 70-99 [facility] Comment on above: Performed By: #### B MPX #### [address] [address] [employer]: Tavon Nicole MD Potassium [Moles/Vol] 4.1 mmol/L Normal 3.7-5.3 [facility] Comment on above: Result Comment: SPEC IMEN SLIGHTLY HEMOLYZED, RESULTS MAY BE ADVERSELY AFFECTED. Performed By: #### B MPX #### [facility] [address] [place], [place] [phone] [employer]: Tavon Nicole MD Sodium [Moles/Vol] 139 mmol/L Normal 135-144 [facility] Comment on above: Performed By: #### B MPX #### [facility] [address] [place], [place] [phone] [employer]: Tavon Nicole MD Urea nitrogen [Mass/Vol] 8 mg/dL Normal 6-20 [facility] Comment on above: Performed By: #### B MPX #### [facility] [address] [place], [place] [phone] [employer]: Tavon Nicole MD Basic Metabolic Panel w/ Ref rossi to MGon 10-20-2021 Anion gap [Moles/Vol] 10 mmol/L 9 - 17 mmol/L [facility] Calcium [Mass/Vol] 7.8 mg/dL Low 8.6 - 10. 4 mg/dL [facility] Chloride [Moles/Vol] 109 mmol/L High 98 - 10 7 mmol/L [facility] CO2 [Moles/Vol] 20 mmol/L 20 - 31 mmol/L [facility] Creatinine [Mass/Vol] 0.45 mg/dL Low 0.5 - 0.9 mg/dL [facility] GFR >60 60 - PI NF mL/min [facility] GFR Non- >60 60 - PINF mL/min [facility] GFR/1.73 sq M.predicted MDRD (S/P/Bld) [Vol rate/Area] [facility] Comment on above: Average GFR for 20-2 9 years old: 116 mL/min/1.73sq m Chronic Kidney Disease: <60 mL/min/1.73sq m Kidney failure: <15 mL/min/1.73sq m eGFR calculated using average adult body mass. Additional eGFR calculator available at: http://www.[employer]/multiple_crcl_2012.htm Glucose [Mass/Vol] 84 mg/dL 70 - 99 mg/dL [facility] Interpretation and review of laboratory results Abnormal [facility] Potassium [Moles/Vol] 4.1 mmol/L 3.7 - 5.3 mmol/L [facility] Comment on above: SPECIMEN SLIGHTLY HE MOLYZED, RESULTS MAY BE ADVERSELY AFFECTED. Sodium [Moles/Vol] 139 mmol/L 135 - 144 mmol/L [facility] Urea nitrogen (BldV) [Mass/Vol] 8 mg/dL 6 - 20 mg/dL [facility] CBC with Auto Differentialon 10-20-2021 Absolute Eos # 0.15 [facility] Absolute Immature Granulocyte [facility] Absolute Lymph # 1[facility]48 [facility] Absolute Grainger # 0.[address] [facility] Basophils (Bld) [#/Vol] 0.03 10*3/uL [facility] Basophils/100 WBC (Bld) 1 % 0 - 2 % B ON [facility] Eosinophils/100 WBC (Bld) 3 % 1 - 4 % [facility] Hematocrit (Bld) [Volume fraction] 35.5 % Low 36.3 - 47.1 % [facility] Hemoglobin (Bld) [Mass/Vol] 11.3 g/dL Low 11.9 - 15.1 g/dL [facility] Immature granulocytes/100 WBC (Bld) 0 % 0 [facility] Interpretation and review of laboratory results Abnormal [facility] Lymphocytes/100 WBC (Bld) 34 % 24 - 43 % [facility] MCH (RBC) [Entitic mass] 27.9 pg 25.2 - 33.5 pg [facility] MCHC (RBC) [Mass/Vol] 31.8 g/dL 28.4 - 34.8 g/dL [facility] MCV (RBC) [Entitic vol] 87.7 fL 82.6 - 102.9 fL [facility] Monocytes/100 WBC (Bld) 6 % 3 - 12 % B ON [facility] NRBC Automated 0.0 0.0 per 100 WBC [facility] Platelet distribution width (Bld) [Ratio] 12.9 % 11.8 - 14.4 % [facility] Platelets (Bld) [#/Vol] See Reflexed IPF Result [facility] RBC (Bld) [#/Vol] 4.05 10*6/uL 3.95 - 5.1 1 m/uL [facility] Segmented neutrophils/100 WBC (Bld) 55 % 36 - 65 % [facility] Segs Absolute 2.42 [facility] WBC (Bld) [#/Vol] 4.4 10*3/uL [facility] CBC with Diffon 10-20-2021 Abs. Basophil 0.03 k/uL Normal 0.00-0.20 [facility] Comment on above: Performed By: #### C DP, IPF #### [place] [address] [employer]: Tavon Nicole MD Abs.Imm.Granulocyte <0.03 Normal 0.00-0.30 [facility] Comment on above: Performed By: #### C DP, IPF #### [place] [address] [employer]: Tavon Nicole MD Abs.Neutrophil (Seg) 2.42 k/uL Normal 1.50-8.10 [facility] Comment on above: Performed By: #### C DP, IPF #### [place] [address] [employer]: Tavon Nicole MD Basophils/100 WBC (Bld) 1 % Normal 0-2 [facility] Comment on above: Performed By: #### C DP, IPF #### [place] [address] [employer]: Tavon Nicole MD Eosinophils (Bld) [#/Vol] 0.15 10*3/uL Normal 0.00-0.44 [facility] Comment on above: Performed By: #### C DP, IPF #### [address] [address] [employer]: Tavon Nicole MD Eosinophils/100 WBC (Bld) 3 % Normal 1-4 [facility] Comment on above: Performed By: #### C DP, IPF #### [address] [address] [employer]: Tavon Nicole MD Immature granulocytes/100 WBC (Bld) 0 % Normal 0 [facility] Comment on above: Performed By: #### C DP, IPF #### [address] [address] [employer]: Tavon Nicole MD Lymphocytes (Bld) [#/Vol] 1.48 10*3/uL Normal 1.10-3.70 [facility] Comment on above: Performed By: #### C DP, IPF #### [address] [address] [employer]: Tavon Nicole MD Lymphocytes/100 WBC (Bld) 34 % Normal 24-43 [facility] Comment on above: Performed By: #### C DP, IPF #### [address] [address] [employer]: Tavon Nicole MD Monocytes (Bld) [#/Vol] 0.28 10*3/uL Normal 0.10-1.20 [facility] Comment on above: Performed By: #### C DP, IPF #### [address] [address] [employer]: Tavon Nicole MD Monocytes/100 WBC (Bld) 6 % Normal 3-12 M [facility] Comment on above: Performed By: #### C DP, IPF #### [address] [address] [employer]: Tavon Nicole MD Neutrophil (Seg) 55 % Normal 36-65 [facility] Comment on above: Performed By: #### C DP, IPF #### [address] [address] [employer]: Tavon Nicole MD Erythrocyte distribution width (RBC) [Ratio] 12.9 % Normal 11.8-14.4 [facility] Comment on above: Performed By: #### C DP, IPF #### [address] [address] [employer]: Tavon Nicole MD Hematocrit (Bld) [Volume fraction] 35.5 % Low 36.3-47.1 [facility] Comment on above: Performed By: #### C DP, IPF #### [address] [address] [employer]: Tavon Nicole MD Hemoglobin (Bld) [Mass/Vol] 11.3 g/dL Low 11.9-15.1 [facility] Comment on above: Performed By: #### C DP, IPF #### [address] [address] [employer]: Tavon iNcole MD MCH (RBC) [Entitic mass] 27.9 pg Normal 25.2-33.5 [facility] Comment on above: Performed By: #### C DP, IPF #### [address] [address] [employer]: Tavon Nicole MD MCHC (RBC) [Mass/Vol] 31.8 g/dL Normal 28.4-34.8 [facility] Comment on above: Performed By: #### C DP, IPF #### [address] [address] [employer]: Tavon Nicole MD MCV (RBC) [Entitic vol] 87.7 fL Normal 82.6-102.9 M [facility] Comment on above: Performed By: #### C DP, IPF #### [address] [address] [employer]: Tavon Nicole MD NRBC Automated 0.0 per 100 WBC Normal 0.0 [facility] Comment on above: Performed By: #### C DP, IPF #### [address] [address] [employer]: Tavon Nicole MD Platelet Count See Reflexed IPF Result Normal 138-453 [facility] Comment on above: Performed By: #### C DP, IPF #### [address] [address] [employer]: Tavon Nicole MD RBC (Bld) [#/Vol] 4.05 10*6/uL Normal 3.95-5.11 [facility] Comment on above: Performed By: #### C DP, IPF #### [address] [address] [employer]: Tavon Nicole MD WBC (Bld) [#/Vol] 4.4 10*3/uL Normal 3.5-11.3 [facility] Comment on above: Performed By: #### C DP, IPF #### [address] [address] [employer]: Tavon Nicole MD EEG video monitoringon 10-20 Raiza Land MD 10/20/2021 12:11 PM Referring physician: Chris Blanchard APRN Date:10/20/2021 Start Time:10/19/2021 @1258 End Time: 10/20/2021 @ 1200 Indication Patient with recurrent events Introduction This continuous video-EEG was acquired using a [employer] workstation at 256 samples/s. Electrodes were placed [...] Board Certified. Neurology Board Certified. Electronically Signed [facility] Work Phone: EEG video monitoringOrdered By: Raiza Land on 10-20-2021 [facility] Work Phone: Immature Platelet Fractionon 10-20-2021 Platelet, Fluorescence Platelet clumps present, count appears adequate. [facility] PLT, Immature Fract.on 10-20 Platelet, Fluoresc. Platelet clumps present, count appears adequate. Normal 138-453 [facility] Comment on above: Performed By: #### C DP, IPF #### [facility] [address] [place] [address] [employer]: Tavon Nicole MD PROLACTINon 10-20-2021 Prolactin 41.7 ng/mL Critically high 4.8-23.3 [facility] Comment on above: Performed By: #### C VDTBH #### [facility] [address] [place], [place] [address] Dr. Ibis Jimenez CBCon 10-19-2021 Erythrocyte distribution width (RBC) [Ratio] 12.9 % Normal 11.8-14.4 [facility] Comment on above: Performed By: #### T ROPI, LACTIC, CMPX, CBC #### [facility] [address] [place] [address] [employer]: Tavon Nicole MD Hematocrit (Bld) [Volume fraction] 31.5 % Low 36.3-47.1 [facility] Comment on above: Performed By: #### T ROPI, LACTIC, CMPX, CBC #### [facility] [address] [place] [address] [employer]: Tavon Nicole MD Hemoglobin (Bld) [Mass/Vol] 10.8 g/dL Low 11.9-15.1 [facility] Comment on above: Performed By: #### T ROPI, LACTIC, CMPX, CBC #### [address] [address] [employer]: Tavon Nicole MD MCH (RBC) [Entitic mass] 29.1 pg Normal 25.2-33.5 [facility] Comment on above: Performed By: #### T ROPI, LACTIC, CMPX, CBC #### [facility] [employer] [address] [place] [address] [employer]: Tavon Nicole MD MCHC (RBC) [Mass/Vol] 34.3 g/dL Normal 28.4-34.8 [facility] Comment on above: Performed By: #### T ROPI, LACTIC, CMPX, CBC #### [facility] [employer] [address] [place] [address] [employer]: Tavon Nicole MD MCV (RBC) [Entitic vol] 84.9 fL Normal 82.6-102.9 [facility] Comment on above: Performed By: #### T ROPI, LACTIC, CMPX, CBC #### [facility] [employer] [address] [place] [phone] [employer]: Tavon Nicole MD NRBC Automated 0.0 per 100 WBC Normal 0.0 [facility] Comment on above: Performed By: #### T ROPI, LACTIC, CMPX, CBC #### [facility] [employer] [address] [place] [address] [employer]: Tavon Nicole MD Platelet mean volume (Bld) [Entitic vol] 9.8 fL Normal 8.1-13.5 [facility] Comment on above: Performed By: #### T ROPI, LACTIC, CMPX, CBC #### [facility] [employer] [address] [place] [address] [employer]: Tavon Nicole MD Platelets (Bld) [#/Vol] 281 10*3/uL Normal 138-453 [facility] Comment on above: Performed By: #### T ROPI, LACTIC, CMPX, CBC #### [facility] [employer] [address] [place] [address] [employer]: Tavon Nicole MD RBC (Bld) [#/Vol] 3.71 10*6/uL Low 3.95-5.11 [facility] Comment on above: Performed By: #### T ROPI, LACTIC, CMPX, CBC #### [facility] [employer] [address] [place] [address] [employer]: Tavon Nicole MD WBC (Bld) [#/Vol] 5.0 10*3/uL Normal 3.5-11.3 [facility] Comment on above: Performed By: #### T ROPI, LACTIC, CMPX, CBC #### [facility] [employer] [address] [place] [address] [employer]: Tavon Nicole MD Hematocrit (Bld) [Volume fraction] 31.5 % Low 36.3 - 47.1 % [facility] Hemoglobin (Bld) [Mass/Vol] 10.8 g/dL Low 11.9 - 15.1 g/dL [facility] Interpretation and review of laboratory results Abnormal [facility] MCH (RBC) [Entitic mass] 29.1 pg 25.2 - 33.5 pg [facility] MCHC (RBC) [Mass/Vol] 34.3 g/dL 28.4 - 34.8 g/dL [facility] MCV (RBC) [Entitic vol] 84.9 fL 82.6 - 102.9 fL [facility] NRBC Automated 0.0 0.0 per 100 WBC [facility] Platelet distribution width (Bld) [Ratio] 12.9 % 11.8 - 14.4 % [facility] Platelet mean volume (Bld) [Entitic vol] 9.8 fL 8.1 - 13.5 fL [facility] Platelets (Bld) [#/Vol] 281 10*3/uL [facility] RBC (Bld) [#/Vol] 3.71 10*6/uL Low 3.95 - 5.1 1 m/uL [facility] WBC (Bld) [#/Vol] 5.0 10*3/uL [facility] CBC AUTO DIFFon 10-19-2021 EO # 0.2 103/ul Normal 0.0-0.7 [facility] Comment on above: Performed By: #### A MM #### [facility] [address] [place] [address] Dr. Ibis Jimenez Eosinophils/100 WBC (Bld) 3.9 % Normal 0.9-7.0 [facility] Comment on above: Performed By: #### A MM #### [facility] [address] [place] [address] [address] Ibis Jimenez Erythrocyte distribution width (RBC) [Ratio] 13.1 % Normal 11.0-15.0 [facility] Comment on above: Performed By: #### A MM #### [facility] [address] [place] [address] Dr. Ibis Jimenez Hematocrit (Bld) [Volume fraction] 33.4 % Critically low 36.0-48.0 [facility] Comment on above: Performed By: #### A MM #### [facility] [address] [place] [address] Dr. Ibis Jimenez Hemoglobin (Bld) [Mass/Vol] 11.1 g/dL Critically low 12.0-16.0 [facility] Comment on above: Performed By: #### A MM #### [facility] [address] [place] [address] Dr. Ibis Jimenez LYMPH # 1.2 103/ul Normal 1.2-3.8 [facility] Comment on above: Performed By: #### A MM #### [facility] [address] [place] [address] Dr. Ibis Jimenez Lymphocytes/100 WBC (Bld) 25.9 % Normal 20.5-60.0 [facility] Comment on above: Performed By: #### A MM #### [facility] [address] [place] [address] Dr. Ibis Jimenez MCHC (RBC) [Mass/Vol] 33.2 g/dL Normal 29.9-35.2 [facility] Comment on above: Performed By: #### A MM #### [facility] [address] [place] [address] Dr. Ibis Jimenez MCV (RBC) [Entitic vol] 85.9 fL Normal 81.0-99.0 [facility] Comment on above: Performed By: #### A MM #### [facility] [address] [place] [address] Dr. Ibis Jimenez Monocytes/100 WBC (Bld) 7.7 % Normal 1.7-12.0 [facility] Comment on above: Performed By: #### A MM #### [facility] [address] [place] [address] Dr. Ibis Jimenez NEUT # 2.9 103/ul Normal 1.4-6.5 [facility] Comment on above: Performed By: #### A MM #### [facility] [address] [place] [address] Dr. Ibis Jimenez Neutrophils/100 WBC (Bld) 61.5 % Normal 43.0-75.0 [facility] Comment on above: Performed By: #### A MM #### [facility] [address] [place] [address] Dr. Ibis Jimenez PLT 264 103/ul Normal 150-450 [facility] Comment on above: Performed By: #### A MM #### [facility] [address] [place] [address] Dr. Ibis Jimenez RBC 3.89 106/ul Critically low 4.20-5.40 [facility] Comment on above: Performed By: #### A MM #### [facility] [address] [place] [address] Dr. Ibis Jimenez WBC 4.7 103/ul Normal 4.0-11.0 [facility] Comment on above: Performed By: #### A MM #### [facility] [address] [place] [address] Dr. Ibis Jimenez BASO # 0.0 103/ul Normal 0.0-0.1 [facility] Comment on above: Performed By: #### A MM #### [facility] [address] [place] [address] Dr. Ibis Jimenez Performed By: #### C VDTBH #### [facility] [address] [place] [address] Dr. Ibis Jimenez Basophils/100 WBC (Bld) 0.6 % Normal 0.2-2.0 [facility] Comment on above: Performed By: #### A MM #### [facility] [address] [place] [address] Dr. Ibis Jimenez Performed By: #### C VDTBH #### [facility] [address] [place] [address] Dr. Ibis Jimenez EO # 0.3 103/ul Normal 0.0-0.7 [facility] Comment on above: Performed By: #### C VDTBH #### [facility] [address] [place] [address] Dr. Ibis Jimenez Eosinophils/100 WBC (Bld) 5.0 % Normal 0.9-7.0 [facility] Comment on above: Performed By: #### C VDTBH #### [facility] [address] [place] [address] Dr. Ibis Jimenez Erythrocyte distribution width (RBC) [Ratio] 12.8 % Normal 11.0-15.0 [facility] Comment on above: Performed By: #### C VDTBH #### [facility] [address] [place] [address] Dr. Ibis Jimenez Hematocrit (Bld) [Volume fraction] 38.0 % Normal 36.0-48.0 [facility] Comment on above: Performed By: #### C VDTBH #### [facility] [address] [place] [address] Dr. Ibis Jimenez Hemoglobin (Bld) [Mass/Vol] 12.7 g/dL Normal 12.0-16.0 [facility] Comment on above: Performed By: #### C VDTBH #### [facility] [address] [place] [address] Dr. Ibis Jimenez IG # 0.02 10e3/ul Normal 0.00-0.03 [facility] Comment on above: Performed By: #### A MM #### [facility] [address] [place] [address] Dr. Ibis Jimenez Performed By: #### C VDTBH #### [facility] [address] [place] [address] Dr. Ibis Jimenez IG % 0.4 % Normal 0.0-0.5 [facility] Comment on above: Performed By: #### A MM #### [facility] [address] [place] [address] Dr. Ibis Jimenez Performed By: #### C VDTBH #### [facility] [address] [place] [address] Dr. Ibis Jimenez LYMPH # 1.7 103/ul Normal 1.2-3.8 [facility] Comment on above: Performed By: #### C VDTBH #### [facility] [address] [place] [address] Dr. Ibis Jimenez Lymphocytes/100 WBC (Bld) 30.7 % Normal 20.5-60.0 [facility] Comment on above: Performed By: #### C VDTBH #### [facility] [address] [place] [address] Dr. Ibis Jimenez MANUAL DIFF REQ NO Normal [facility] Comment on above: Performed By: #### A MM #### [facility] [address] [place] [address] Dr. Ibis Jimenez Performed By: #### C VDTBH #### [facility] [address] [place] [address] Dr. Ibis Jimenez MCH (RBC) [Entitic mass] 28.5 pg Normal 26.7-34.0 [facility] Comment on above: Performed By: #### A MM #### [facility] [address] [place] [address] Dr. Ibis Jimenez Performed By: #### C VDTBH #### [facility] [address] [place] [address] Dr. Ibis Jimenez MCHC (RBC) [Mass/Vol] 33.4 g/dL Normal 29.9-35.2 [facility] Comment on above: Performed By: #### C VDTBH #### [facility] [address] [place] [address] Dr. Ibis Jimenez MCV (RBC) [Entitic vol] 85.2 fL Normal 81.0-99.0 [facility] Comment on above: Performed By: #### C VDTBH #### [facility] [address] [place] [address] Dr. Ibis Jimenez MONO # 0.4 103/ul Normal 0.3-0.8 [facility] Comment on above: Performed By: #### A MM #### [facility] [address] [place] [address] Dr. Ibis Jimenez Performed By: #### C VDTBH #### [facility] [address] [place] [address] Dr. Ibis Jimenez Monocytes/100 WBC (Bld) 8.1 % Normal 1.7-12.0 [facility] Comment on above: Performed By: #### C VDTBH #### [facility] [address] [place] [address] Dr. Ibis Jimenez NEUT # 3.0 103/ul Normal 1.4-6.5 [facility] Comment on above: Performed By: #### C VDTBH #### [facility] [address] [place] [address] Dr. Ibis Jimenez Neutrophils/100 WBC (Bld) 55.2 % Normal 43.0-75.0 [facility] Comment on above: Performed By: #### C VDTBH #### [facility] [address] [place] [address] Dr. Ibis Jimenez Platelet mean volume (Bld) [Entitic vol] 9.5 fL Normal 9.5-13.5 [facility] Comment on above: Performed By: #### A MM #### [facility] [address] [place] [address] Dr. Ibis Jimenez Performed By: #### C VDTBH #### [facility] [address] [place] [address] Dr. Ibis Jimenez PLT 343 103/ul Normal 150-450 [facility] Comment on above: Performed By: #### C VDTBH #### [facility] [address] [place] [address] Dr. Ibis Jimenez RBC 4.46 106/ul Normal 4.20-5.40 [facility] Comment on above: Performed By: #### C VDTBH #### [facility] [address] [place] [address] Dr. Ibis Jimenez WBC 5.4 103/ul Normal 4.0-11.0 [facility] Comment on above: Performed By: #### C VDTBH #### [facility] [address] [place] [address] HEAD WO CONon [...] by: LOPEZ REYNOLDS Date: 2021-10-19 07:31 Normal [facility] Comp Metabolic Pr/rfx MGon 0 10-19-2021 (cont.) Normal [facility] Comment on above: Result Comment: Aver age GFR for 20-29 years old: 116 mL/min/1.73sq m Chronic Kidney Disease: <60 mL/min/1.73sq m Kidney failure: <15 mL/min/1.73sq m eGFR calculated using average adult body mass. Additional eGFR calculator available at: http://www.Microarrays/multiple_crcl_2012.htm Performed By: #### T ROPI, LACTIC, CMPX, CBC #### [facility] [address] [place] [phone] [employer]: Tavon Nicole MD Albumin [Mass/Vol] 3.5 g/dL Normal 3.5-5.2 [facility] Comment on above: Performed By: #### T ROPI, LACTIC, CMPX, CBC #### [facility] [address] [place] [address] [phone] [employer]: Tavon Nicole MD Albumin/Glob Ratio 1.4 Normal 1.0-2.5 [facility] Comment on above: Performed By: #### T ROPI, LACTIC, CMPX, CBC #### [facility] [address] [place] [address] [phone] [employer]: Tavon Nicole MD Alkaline Phos 69 U/L Normal 35-104 [facility] Comment on above: Performed By: #### T ROPI, LACTIC, CMPX, CBC #### [facility] [employer] [address] [place] [phone] [employer]: Tavon Nicole MD ALT [Catalytic activity/Vol] 15 U/L Normal 5-33 [facility] Comment on above: Performed By: #### T ROPI, LACTIC, CMPX, CBC #### [address] [address] [employer]: Tavon Nicole MD Anion gap [Moles/Vol] 13 mmol/L Normal 9-17 [facility] Comment on above: Performed By: #### T ROPI, LACTIC, CMPX, CBC #### [address] [address] [employer]: Tavon Nicole MD AST [Catalytic activity/Vol] 12 U/L Normal <32 [facility] Comment on above: Performed By: #### T ROPI, LACTIC, CMPX, CBC #### [address] [address] [employer]: Tavon Nicole MD Bilirubin [Mass/Vol] 0.24 mg/dL Low 0.3-1.2 [facility] Comment on above: Performed By: #### T ROPI, LACTIC, CMPX, CBC #### [address] [address] [employer]: Tavon Nicole MD Calcium [Mass/Vol] 8.1 mg/dL Low 8.6-10.4 [facility] Comment on above: Performed By: #### T ROPI, LACTIC, CMPX, CBC #### [facility] [employer] [address] [place] [phone] [employer]: Tavon Nicole MD Chloride [Moles/Vol] 107 mmol/L Normal 98-107 [facility] Comment on above: Performed By: #### T ROPI, LACTIC, CMPX, CBC #### [facility] [address] [place] [phone] [employer]: Tavon Nicole MD CO2 [Moles/Vol] 19 mmol/L Low 20-31 [facility] Comment on above: Performed By: #### T ROPI, LACTIC, CMPX, CBC #### [facility] [address] [place] [phone] [employer]: Tavon Nicole MD Creatinine [Mass/Vol] 0.53 mg/dL Normal 0.50-0.90 [facility] Comment on above: Performed By: #### T ROPI, LACTIC, CMPX, CBC #### [facility] [address] [place] [phone] [employer]: Tavon Nicole MD GFR, Amer >60 Normal >60 [facility] Comment on above: Performed By: #### T ROPI, LACTIC, CMPX, CBC #### [facility] [address] [place] [phone] [employer]: Tavon Nicole MD GFR,non Amer >60 Normal >60 [facility] Comment on above: Performed By: #### T ROPI, LACTIC, CMPX, CBC #### [facility] [address] [place] [phone] [employer]: Tavon Nicole MD Glucose [Mass/Vol] 81 mg/dL Normal 70-99 [facility] Comment on above: Performed By: #### T ROPI, LACTIC, CMPX, CBC #### [facility] [address] [place] [phone] [employer]: Tavon Nicole MD Potassium [Moles/Vol] 3.9 mmol/L Normal 3.7-5.3 [facility] Comment on above: Performed By: #### T ROPI, LACTIC, CMPX, CBC #### [facility] [address] [place] [address] [phone] [employer]: Tavon Nicole MD Protein [Mass/Vol] 6.0 g/dL Low 6.4-8.3 [facility] Comment on above: Performed By: #### T ROPI, LACTIC, CMPX, CBC #### [facility] [address], [place] [phone] [employer]: Tavon Nicole MD Sodium [Moles/Vol] 139 mmol/L Normal 135-144 [facility] Comment on above: Performed By: #### T ROPI, LACTIC, CMPX, CBC #### [facility] [address], [place] [phone] [employer]: Tavon Nicole MD Urea nitrogen [Mass/Vol] 10 mg/dL Normal 6-20 [facility] Comment on above: Performed By: #### T ROPI, LACTIC, CMPX, CBC #### [facility] [address], [place] [phone] [employer]: Tavon Nicole MD Comprehensive Metabolic Pane l w/ Reflex to MGon 10-19-2021 Albumin [Mass/Vol] 3.5 g/dL 3.5 - 5.2 g/dL [facility] Albumin/Globulin [Mass ratio] 1.4 {ratio} 1 - 2.5 [facility] ALP (Bld) [Catalytic activity/Vol] 69 U/L 35 - 104 U/L [facility] ALT [Catalytic activity/Vol] 15 U/L 5 - 33 U/L [facility] Anion gap [Moles/Vol] 13 mmol/L 9 - 17 mmol/L [facility] AST [Catalytic activity/Vol] 12 U/L NINF - 32 U/L [facility] Bilirubin [Mass/Vol] 0.24 mg/dL Low 0.3 - 1 .2 mg/dL [facility] Calcium [Mass/Vol] 8.1 mg/dL Low 8.6 - 10. 4 mg/dL [facility] Chloride [Moles/Vol] 107 mmol/L 98 - 10 7 mmol/L [facility] CO2 [Moles/Vol] 19 mmol/L Low 20 - 31 mmol/L [facility] Creatinine [Mass/Vol] 0.53 mg/dL 0.5 - 0.9 mg/dL [facility] Free PSA/Total PSA [Mass fraction] 6.0 g/dL Low 6.4 - 8.3 g/dL [facility] GFR >60 60 - PI NF mL/min [facility] GFR Non- >60 60 - PINF mL/min [facility] GFR/1.73 sq M.predicted MDRD (S/P/Bld) [Vol rate/Area] [facility] Comment on above: Average GFR for 20-2 9 years old: 116 mL/min/1.73sq m Chronic Kidney Disease: <60 mL/min/1.73sq m Kidney failure: <15 mL/min/1.73sq m eGFR calculated using average adult body mass. Additional eGFR calculator available at: http://www.Microarrays/multiple_crcl_2012.htm Glucose [Mass/Vol] 81 mg/dL 70 - 99 mg/dL [facility] Interpretation and review of laboratory results Abnormal [facility] Potassium [Moles/Vol] 3.9 mmol/L 3.7 - 5.3 mmol/L [facility] Sodium [Moles/Vol] 139 mmol/L 135 - 144 mmol/L [facility] Urea nitrogen (BldV) [Mass/Vol] 10 mg/dL 6 - 20 mg/dL [facility] Covid-19 PCR (CVDTBH)on 09-22 SARS-CoV-2 (COVID-19) RNA SAURABH+probe Ql (Unsp spec) Not detected Normal NOT DETECTED [facility] Comment on above: Result Comment: When [...] for this test is supported by the [place] of Health and Human Service's declaration that [...] used). Performed By: #### C VDTB #### [facility] [address] [place] [address] Dr. Ibis Jimenez DRUG SCREEN RAPID (URINE)on 10-19-2021 AMP Negative Normal NEGATIVE [facility] Comment on above: Performed By: #### B MP #### [facility] [address] [place] [address] Dr. Ibis Jimenez BAR Positive Abnormal NEGATIVE [facility] Comment on above: Performed By: #### B MP #### [facility] [address] [place] [address] Dr. Ibis Jimenez BUP Negative Normal NEGATIVE [facility] Comment on above: Performed By: #### B MP #### [facility] [address] [place] [address] Dr. Ibis Jimenez BZO Positive Abnormal NEGATIVE [facility] Comment on above: Performed By: #### B MP #### [facility] [address] [place] [address] Dr. Ibis Jimenez SEMAJ Negative Normal NEGATIVE [facility] Comment on above: Performed By: #### B MP #### [facility] [address] [place] [address] Dr. Ibis Jimenez CUT-OFFS SEE BELOW Normal [facility] Comment on above: Result Comment: AMP [...] ng/mL Performed By: #### B MP #### [facility] [address] [place] [address] Dr. Ibis Jimenez DRUG CUT HEADER DRUG CLASS TEST SYSTEM CUT-OFF CONCENTRATIONS ARE FOLLOWS: Normal [facility] Comment on above: Performed By: #### B MP #### [facility] [address] [place] [address] Dr. Ibis Jimenez mAMP Negative Normal NEGATIVE [facility] Comment on above: Performed By: #### B MP #### [facility] [address] [place] [address] Dr. Ibis Jimenez MTD Negative Normal NEGATIVE [facility] Comment on above: Performed By: #### B MP #### [facility] [address] [place] [address] Dr. Ibis Jimenez OPI Positive Abnormal NEGATIVE [facility] Comment on above: Performed By: #### B MP #### [facility] [address] [place] [address] Dr. Ibis Jimenez OXY Positive Abnormal NEGATIVE [facility] Comment on above: Performed By: #### B MP #### [facility] [address] [place] [address] Dr. Ibis Jimenez PCP Negative Normal NEGATIVE [facility] Comment on above: Performed By: #### B MP #### [facility] [address] [place] [address] Dr. Ibis Jimenez PPX Negative Normal NEGATIVE [facility] Comment on above: Performed By: #### B MP #### [facility] [address] [place] [address] Dr. Ibis Jimenez TCA Negative Normal NEGATIVE [facility] Comment on above: Performed By: #### B MP #### [facility] [address] [place] [address] Dr. Ibis Jimenez THC Negative Normal NEGATIVE [facility] Comment on above: Performed By: #### B MP #### [facility] [address] [address] [address] Ibis Jimenez ER URINE PROFILEon 2 Bilirubin Ql (U) Negative Normal NEGATIVE [facility] Comment on above: Performed By: #### B MP #### [facility] [address] [address] [address] Ibis Jimenez Clarity (U) CLEAR Normal CLEAR [facility] Comment on above: Performed By: #### B MP #### [facility] [address] [place] [address] Dr. Ibis Jimenez Color (U) YELLOW Normal YELLOW [facility] Comment on above: Performed By: #### B MP #### [facility] [address] [place] [address] Dr. Ibis RODRIGUEZ A micrscopic examination will be performed if indicated. Normal [facility] Comment on above: Performed By: #### B MP #### [facility] [address] [place] [address] Dr. Ibis Jimenez Glucose Ql (U) Negative Normal NEGATIVE [facility] Comment on above: Performed By: #### B MP #### [facility] [address] [place] [address] Dr. Ibis Jimenez Hemoglobin Ql (U) TRACE-INTACT Abnormal NEGATIVE [facility] Comment on above: Performed By: #### B MP #### [facility] [address] [address] [address] Ibis Jimenez Ketones Ql (U) Negative Normal NEGATIVE [facility] Comment on above: Performed By: #### B MP #### [facility] [address] [address] [address] Ibis Jimenez LEUKOCYTES Negative Normal NEGATIVE [facility] Comment on above: Performed By: #### B MP #### [facility] [address] [place] [address] Dr. Ibis Jimenez Nitrite Ql (U) Negative Normal NEGATIVE [facility] Comment on above: Performed By: #### B MP #### [facility] [address] [place] [address] Dr. Ibis Jimenez pH (U) 5.5 [pH] Normal 5-9 [facility] Comment on above: Performed By: #### B MP #### [facility] [address] [place] [address] Dr. Ibis Jimenez SPEC GRAVITY >=1.030 Abnormal 1.005-<=1.[address] [place] [address] Comment on above: Performed By: #### B MP #### [facility] [address] [place] [address] Dr. Ibis Jimenez UA PROTEIN Negative Normal NEGATIVE/ TRACE [facility] Comment on above: Performed By: #### B MP #### [facility] [address] [place] [address] Dr. Ibis Jimenez UR MICRO IND INDICATED Normal [facility] Comment on above: Performed By: #### B MP #### [facility] [address] [place] [address] Dr. Ibis Jimenez Urobilinogen Qn (U) 0.2 {Dinorah'U}/dL Normal 0.2 - 1. 0 [facility] Comment on above: Performed By: #### B MP #### [facility] [address] [place] [address] Dr. Ibis Jimenez LACTATE/LACTIC ACIDon 2021 Lactate [Moles/Vol] 1.2 mmol/L Normal 0.4-1.9 [facility] Comment on above: Performed By: #### A MM #### [facility] [address] [place] [address] Dr. Ibis Jimenez Lactic Acidon 10-19-2021 Lactic Acid,Whole Bl 0.9 mmol/L Normal 0.7-2.1 [facility] Comment on above: Performed By: #### T ROPI, LACTIC, CMPX, CBC #### [facility] [address], [place] [phone] [employer]: Tavon Nicole MD Lactic Acid, Whole Blood 0.9 mmol/L 0.7 - 2.1 mmol/L [facility] MONOon 10-19-2021 Monocytes (Bld) [#/Vol] Negative Normal NEGATIVE [facility] Comment on above: Performed By: #### M DAVID #### [facility] [address] [address] [address] Ibis Jimenez MRI BRAIN W WO [...] Carlos Marks DO 10/19/21 Final result Normal [facility] Unremarkable MR brain. [facility] RIS CONSOLIDATED EXAMINATION: MRI OF THE BRAIN WITHOUT [...] The soft tissues demonstrate no acute abnormality. [facility] Carlos Marks, DO - 10/19/2021 EXAMINATION: MRI OF THE [...] no acute abnormality. IMPRESSION: Unremarkable MR brain. [employer] Phone: Radiology Study observation (narrative) [employer] Phone: MRI BRAIN W WO CONTRASTOrder ed By: Carlos Marks on 10-19-2021 [employer] Phone: PH VENOUS BLOODon 10-19-2021 PCO2 VENOUS 36.6 mmHg Critically low 40.0-52.0 [facility] Comment on above: Performed By: #### B MP #### [facility] [address] [place] [address] Dr. Ibis Jimenez pH VENOUS 7.387 Normal 7.330-7.430 [facility] Comment on above: Performed By: #### B MP #### [facility] [address] [place] [address] Dr. Ibis Jimenez PROF CHEM 8 (BAS METB)on Anion gap [Moles/Vol] 11.9 mmol/L Normal [facility] Comment on above: Performed By: #### M DAVID #### [facility] [address] [place] [address] Dr. Ibis Jimenez Calcium [Mass/Vol] 9.1 mg/dL Normal 8.5-10.1 [facility] Comment on above: Performed By: #### M DAVID #### [facility] [address] [place] [address] Dr. Ibis Jimenez Chloride [Moles/Vol] 104 mmol/L Normal 98-107 [facility] Comment on above: Performed By: #### M DAVID #### [facility] [address] [place] [address] Dr. Ibis Jimenez CO2 [Moles/Vol] 26.7 mmol/L Normal 21.0-32.0 [facility] Comment on above: Performed By: #### M DAVID #### [facility] [address] [place] [address] Dr. Ibis Jimenez Creatinine [Mass/Vol] 0.78 mg/dL Normal 0.55-1.02 [facility] Comment on above: Performed By: #### M DAVID #### [facility] [address] [place] [address] Dr. Ibis Jimenez EGFR-AF INDIAN >60 Normal >=60 [facility] Comment on above: Performed By: #### M DAVID #### [facility] [address] [place] [address] Dr. Ibis Jimenez EGFR-NON AF INDIAN >60 Normal >=60 [facility] Comment on above: Performed By: #### M DAVID #### [facility] [address] [address] [address] Ibis Jimenez Glucose [Mass/Vol] 96 mg/dL Normal 74-106 [facility] Comment on above: Performed By: #### M DAVID #### [facility] [address] [address] [address] Ibis Jimenez Potassium [Moles/Vol] 3.6 mmol/L Normal 3.5-5.1 [facility] Comment on above: Performed By: #### M DAVID #### [facility] [address] [address] [address] Ibis Jimenez Sodium [Moles/Vol] 139 mmol/L Normal 136-145 [facility] Comment on above: Performed By: #### M DAVID #### [facility] [address] [address] [address] Ibis Jimenez Urea nitrogen [Mass/Vol] 14.0 mg/dL Normal 7.0-18.0 [facility] Comment on above: Performed By: #### M DAVID #### [facility] [address] [address] [address] Ibis Jimenez Urea nitrogen/Creatinine [Mass ratio] 17.9 mg/mg Normal [facility] Comment on above: Performed By: #### M DAVID #### [facility] [address] [address] [address] Ibis Jimenez TSHon 10-19-2021 TSH 1.389 uIU/mL Normal 0.358-3.740 [facility] Comment on above: Performed By: #### A KORI DAVIS #### [facility] [address] [address] [address] Ibis Jimenez Troponinon 10-19-2021 Troponin, High Sens <6 Normal 0-14 [facility] Comment on above: Result Comment: High Sensitivity Troponin values cannot be compared with other Troponin methodologies. Patients with high levels of Biotin oral intake (i.e >5mg/day) may have falsely decreased Troponin levels. Samples collected within 8 hours of biotin intake may require additional information for diagnosis. Performed By: #### T ROPI, LACTIC, CMPX, CBC #### [facility] [employer] [address] [place] [address] [employer]: Tavon Nicole MD Troponin, High Sensitivity ng/L 0 - 14 ng/L [facility] Comment on above: High Sensitivity Troponin values cannot be compared with other Troponin methodologies. Patients with high levels of Biotin oral intake (i.e >5mg/day) may have falsely decreased Troponin levels. Samples collected within 8 hours of biotin intake may require additional information for diagnosis. [facility] URINE MICROSCOPIC ONLYon BACTERIA TRACE Abnormal NONE SEEN [facility] Comment on above: Performed By: #### B MP #### [facility] [address] [place] [address] Dr. Ibis Jimenez Bacteria identified Cx Nom (U) NOT INDICATED Normal [facility] Comment on above: Performed By: #### B MP #### [facility] [address] [place] [address] Dr. Ibis Jimenez CAST NONE SEEN Normal NONE SEEN [facility] Comment on above: Performed By: #### B MP #### [facility] [address] [place] [address] Dr. Ibis Jimenez Crystals LM Nom (Urine sed) NONE SEEN Normal NONE SEEN [facility] Comment on above: Performed By: #### B MP #### [facility] [address] [place] [address] Dr. Ibis Jimenez Epithelial cells LM Ql (Urine sed) RARE Normal NONE SEEN /RARE [facility] Comment on above: Performed By: #### B MP #### [facility] [address] [place] [address] Dr. Ibis Jimenez MUCOUS LARGE Abnormal NONE SEEN [facility] Comment on above: Performed By: #### B MP #### [facility] [address] [place] [address] Dr. Ibis Jimenez RBC 2-5 Abnormal 0-2 [facility] Comment on above: Performed By: #### B MP #### [facility] [address] [place], [place] [address] Dr. Ibis Jimenez WBC 0-2 Abnormal NONE SEEN [facility] Comment on above: Performed By: #### B MP #### [facility] [address] [place], [place] [address] ABD/PELVIS WO CONon [...] by: JASS LAURENT Date: 2021-10-06 20:08 Normal [facility] ER URINE PROFILEon 2 Bilirubin Ql (U) Negative Normal NEGATIVE [facility] Comment on above: Performed By: #### M DAVID #### [facility] [address] [place] [address] Dr. Ibis Jimenez Clarity (U) CLEAR Normal CLEAR [facility] Comment on above: Performed By: #### M DAVID #### [facility] [address] [place] [address] Dr. Ibis Jimenez Color (U) LT. YELLOW Normal YELLOW [facility] Comment on above: Performed By: #### M DAVID #### [facility] [address] [place] [address] Dr. Ibis RODRIGUEZ A micrscopic examination will be performed if indicated. Normal [facility] Comment on above: Performed By: #### M DAVID #### [facility] [address] [place] [address] Dr. Ibis Jimenez Glucose Ql (U) Negative Normal NEGATIVE [facility] Comment on above: Performed By: #### M DAVID #### [facility] [address] [place] [address] Dr. Ibis Jimenez Hemoglobin Ql (U) Negative Normal NEGATIVE [facility] Comment on above: Performed By: #### M DAVID #### [facility] [address] [place] [address] Dr. Ibis Jimenez Ketones Ql (U) Negative Normal NEGATIVE [facility] Comment on above: Performed By: #### M DAVID #### [facility] [address] [place] [address] Dr. Ibis Jimenez LEUKOCYTES Negative Normal NEGATIVE [facility] Comment on above: Performed By: #### M DAVID #### [facility] [address] [place] [address] Dr. Ibis Jimenez Nitrite Ql (U) Negative Normal NEGATIVE [facility] Comment on above: Performed By: #### M DAVID #### [facility] [address] [place] [address] Dr. Ibis Jimenez pH (U) 8.0 [pH] Normal 5-9 [facility] Comment on above: Performed By: #### M DAVID #### [facility] [address] [place] [address] Dr. Ibis Jimenez SPEC GRAVITY 1.010 Normal 1.005-<=1.02 5 [facility] Comment on above: Performed By: #### M DAVID #### [facility] [address] [place] [address] Dr. Ibis Jimenez UA PROTEIN Negative Normal NEGATIVE/ TRACE [facility] Comment on above: Performed By: #### M DAVID #### [facility] [address] [place] [address] Dr. Ibis Jimenez UR MICRO IND NOT INDICATED Normal [facility] Comment on above: Performed By: #### M DAVID #### [facility] [address] [place] [address] Dr. Ibis Jimenez Urobilinogen Qn (U) 0.2 {Dinorah'U}/dL Normal 0.2 - 1. 0 [facility] Comment on above: Performed By: #### M DAVID #### [facility] [address] [place] [address] Dr. Ibis Jimenez ER URINE PROFILEon 2 Bilirubin Ql (U) Negative Normal NEGATIVE [facility] Comment on above: Performed By: #### C VDTBH #### [facility] [address] [place] [address] Dr. Ibis Jimenez Clarity (U) CLEAR Normal CLEAR [facility] Comment on above: Performed By: #### C VDTBH #### [facility] [address] [place] [address] Dr. Ibis Jimenez Color (U) YELLOW Normal YELLOW [facility] Comment on above: Performed By: #### C VDTBH #### [facility] [address] [place] [address] Dr. Ibis Jimenez ERUAHD A micrscopic examination will be performed if indicated. Normal [facility] Comment on above: Performed By: #### C VDTBH #### [facility] [address] [place] [address] Dr. Ibis Jimenez Glucose Ql (U) Negative Normal NEGATIVE [facility] Comment on above: Performed By: #### C VDTBH #### [facility] [address] [place] [address] Dr. Ibis Jimenez Hemoglobin Ql (U) Negative Normal NEGATIVE [facility] Comment on above: Performed By: #### C VDTBH #### [facility] [address] [place] [address] Dr. Ibis Jimenez Ketones Ql (U) Negative Normal NEGATIVE [facility] Comment on above: Performed By: #### C VDTBH #### [facility] [address] [place] [address] Dr. Ibis Jimenez LEUKOCYTES Negative Normal NEGATIVE [facility] Comment on above: Performed By: #### C VDTBH #### [facility] [address] [place] [address] Dr. Ibis Jimenez Nitrite Ql (U) Negative Normal NEGATIVE [facility] Comment on above: Performed By: #### C VDTBH #### [facility] [address] [place] [address] Dr. Ibis Jimenez pH (U) 6.0 [pH] Normal 5-9 [facility] Comment on above: Performed By: #### C VDTB #### [facility] [address] [place] [address] Dr. Ibis Jimenez SPEC GRAVITY 1.025 Normal 1.005-<=1.02 5 [facility] Comment on above: Performed By: #### C VDTBH #### [facility] [address] [place] [address] Dr. Ibis Jimenez UA PROTEIN Negative Normal NEGATIVE/ TRACE [facility] Comment on above: Performed By: #### C VDTBH #### [facility] [address] [place] [address] Dr. Ibis Jimenez UR MICRO IND NOT INDICATED Normal [facility] Comment on above: Performed By: #### C VDTBH #### [facility] [address] [place] [address] Dr. Ibis Jimenez Urobilinogen Qn (U) 0.2 {Dinorah'U}/dL Normal 0.2 - 1. 0 [facility] Comment on above: Performed By: #### C VDTB #### [facility] [address] [address] [address] Ibis Jimenez CBC AUTO DIFFon 10-03-2021 BASO # 0.0 103/ul Normal 0.0-0.1 [facility] Comment on above: Performed By: #### B MP #### [facility] [address] [address] [address] Ibis Jimenez Basophils/100 WBC (Bld) 0.3 % Normal 0.2-2.0 [facility] Comment on above: Performed By: #### B MP #### [facility] [address] [address] [address] Ibis Jimenez EO # 0.3 103/ul Normal 0.0-0.7 [facility] Comment on above: Performed By: #### B MP #### [facility] [address] [place] [address] Dr. Ibis Jimenez Eosinophils/100 WBC (Bld) 4.1 % Normal 0.9-7.0 [facility] Comment on above: Performed By: #### B MP #### [facility] [address] [address] [address] Ibis Jimenez Erythrocyte distribution width (RBC) [Ratio] 13.2 % Normal 11.0-15.0 [facility] Comment on above: Performed By: #### B MP #### [facility] [address] [address] [address] Ibis Jimenez Hematocrit (Bld) [Volume fraction] 35.7 % Critically low 36.0-48.0 [facility] Comment on above: Performed By: #### B MP #### [facility] [address] [address] [address] Ibis Jimenez Hemoglobin (Bld) [Mass/Vol] 11.6 g/dL Critically low 12.0-16.0 [facility] Comment on above: Performed By: #### B MP #### [facility] [address] [address] [address] Ibis Jimenez IG # 0.02 10e3/ul Normal 0.00-0.03 [facility] Comment on above: Performed By: #### B MP #### [facility] [address] [place] [address] Dr. Ibis Jimenez IG % 0.3 % Normal 0.0-0.5 [facility] Comment on above: Performed By: #### B MP #### [facility] [address] [place] [address] Dr. Ibis Jimenez LYMPH # 1.5 103/ul Normal 1.2-3.8 [facility] Comment on above: Performed By: #### B MP #### [facility] [address] [place] [address] Dr. Ibis Jimenez Lymphocytes/100 WBC (Bld) 24.3 % Normal 20.5-60.0 [facility] Comment on above: Performed By: #### B MP #### [facility] [address] [place] [address] Dr. Ibis Jimenez MANUAL DIFF REQ NO Normal [facility] Comment on above: Performed By: #### B MP #### [facility] [address] [place] [address] Dr. Ibis Jimenez MCH (RBC) [Entitic mass] 28.9 pg Normal 26.7-34.0 [facility] Comment on above: Performed By: #### B MP #### [facility] [address] [place] [address] Dr. Ibis Jimenez MCHC (RBC) [Mass/Vol] 32.5 g/dL Normal 29.9-35.2 [facility] Comment on above: Performed By: #### B MP #### [facility] [address] [place] [address] Dr. Ibis Jimenez MCV (RBC) [Entitic vol] 89.0 fL Normal 81.0-99.0 [facility] Comment on above: Performed By: #### B MP #### [facility] [address] [place] [address] Dr. Ibis Jimenez MONO # 0.5 103/ul Normal 0.3-0.8 [facility] Comment on above: Performed By: #### B MP #### [facility] [address] [address] [address] Ibis Jimenez Monocytes/100 WBC (Bld) 7.3 % Normal 1.7-12.0 [facility] Comment on above: Performed By: #### B MP #### [facility] [address] [address] [address] Ibis Jimenez NEUT # 4.0 103/ul Normal 1.4-6.5 [facility] Comment on above: Performed By: #### B MP #### [facility] [address] [place] [address] Dr. Ibis Jimenez Neutrophils/100 WBC (Bld) 63.7 % Normal 43.0-75.0 [facility] Comment on above: Performed By: #### B MP #### [facility] [address] [place] [address] Dr. Ibis Jimenez Platelet mean volume (Bld) [Entitic vol] 9.7 fL Normal 9.5-13.5 [facility] Comment on above: Performed By: #### B MP #### [facility] [address] [place] [address] Dr. Ibis Jimenez PLT 237 103/ul Normal 150-450 [facility] Comment on above: Performed By: #### B MP #### [facility] [address] [place] [address] Dr. Ibis Jimenez RBC 4.01 106/ul Critically low 4.20-5.40 [facility] Comment on above: Performed By: #### B MP #### [facility] [address] [place] [address] Dr. Ibis Jimenez WBC 6.3 103/ul Normal 4.0-11.0 [facility] Comment on above: Performed By: #### B MP #### [facility] [address] [place] [address] Dr. Ibis Jimenez LACTATE/LACTIC ACIDon 2021 Lactate [Moles/Vol] 1.2 mmol/L Normal 0.4-1.9 [facility] Comment on above: Performed By: #### A MM #### [facility] [address] [place] [address] Dr. Ibis Jimenez BUNon 10-02-2021 Urea nitrogen [Mass/Vol] 7.0 mg/dL Normal 7.0-18.0 [facility] Comment on above: Performed By: #### C VDTBH #### [facility] [address] [place] [address] Dr. Ibis Jimenez CBC AUTO DIFFon 10-02-2021 BASO # 0.0 103/ul Normal 0.0-0.1 [facility] Comment on above: Performed By: #### A MM #### [facility] [address] [place] [address] Dr. Ibis Jimenez Basophils/100 WBC (Bld) 0.2 % Normal 0.2-2.0 [facility] Comment on above: Performed By: #### A MM #### [facility] [address] [place] [address] Dr. Ibis Jimenez EO # 0.0 103/ul Normal 0.0-0.7 [facility] Comment on above: Performed By: #### A MM #### [facility] [address] [place] [address] Dr. Ibis Jimenez Eosinophils/100 WBC (Bld) 0.3 % Critically low 0.9-7.0 [facility] Comment on above: Performed By: #### A MM #### [facility] [address] [place] [address] Dr. Ibis Jimenez Erythrocyte distribution width (RBC) [Ratio] 12.7 % Normal 11.0-15.0 [facility] Comment on above: Performed By: #### A MM #### [facility] [address] [place] [address] Dr. Ibis Jimenez Hematocrit (Bld) [Volume fraction] 43.4 % Normal 36.0-48.0 [facility] Comment on above: Performed By: #### A MM #### [facility] [address] [place] [address] Dr. Ibis Jimenez Hemoglobin (Bld) [Mass/Vol] 14.6 g/dL Normal 12.0-16.0 [facility] Comment on above: Performed By: #### A MM #### [facility] [address] [place] [address] Dr. Ibis Jimenez IG # 0.03 10e3/ul Normal 0.00-0.03 [facility] Comment on above: Performed By: #### A MM #### [facility] [address] [place] [address] Dr. Ibis Jimenez IG % 0.3 % Normal 0.0-0.5 [facility] Comment on above: Performed By: #### A MM #### [facility] [address] [place] [address] Dr. Ibis Jimenez LYMPH # 1.2 103/ul Normal 1.2-3.8 [facility] Comment on above: Performed By: #### A MM #### [facility] [address] [place] [address] Dr. Ibis Jimenez Lymphocytes/100 WBC (Bld) 11.6 % Critically low 20.5-60.0 [facility] Comment on above: Performed By: #### A MM #### [facility] [address] [place] [address] Dr. Ibis Jimenez MANUAL DIFF REQ NO Normal [facility] Comment on above: Performed By: #### A MM #### [facility] [address] [place] [address] Dr. Ibis Jimenez MCH (RBC) [Entitic mass] 28.5 pg Normal 26.7-34.0 [facility] Comment on above: Performed By: #### A MM #### [facility] [address] [place] [address] Dr. Ibis Jimenez MCHC (RBC) [Mass/Vol] 33.6 g/dL Normal 29.9-35.2 [facility] Comment on above: Performed By: #### A MM #### [facility] [address] [place] [address] Dr. Ibis Jimenez MCV (RBC) [Entitic vol] 84.6 fL Normal 81.0-99.0 [facility] Comment on above: Performed By: #### A MM #### [facility] [address] [address] [address] Ibis Jimenez MONO # 0.6 103/ul Normal 0.3-0.8 [facility] Comment on above: Performed By: #### A MM #### [facility] [address] [address] [address] Ibis Jimenez Monocytes/100 WBC (Bld) 5.9 % Normal 1.7-12.0 [facility] Comment on above: Performed By: #### A MM #### [facility] [address] [address] [address] Ibis Jimenez NEUT # 8.2 103/ul Critically high 1.4-6.5 [facility] Comment on above: Performed By: #### A MM #### [facility] [address] [place] [address] Dr. Ibis Jimenez Neutrophils/100 WBC (Bld) 81.7 % Critically high 43.0-75.0 [facility] Comment on above: Performed By: #### A MM #### [facility] [address] [address] [address] Ibis Jimenez Platelet mean volume (Bld) [Entitic vol] 9.8 fL Normal 9.5-13.5 [facility] Comment on above: Performed By: #### A MM #### [facility] [address] [address] [address] Ibis Jimenez PLT 264 103/ul Normal 150-450 [facility] Comment on above: Performed By: #### A MM #### [facility] [address] [address] [address] Ibis Jimenez RBC 5.13 106/ul Normal 4.20-5.40 [facility] Comment on above: Performed By: #### A MM #### [facility] [address] [place] [address] Dr. Ibis Jimenez WBC 10.1 103/ul Normal 4.0-11.0 [facility] Comment on above: Performed By: #### A MM #### [facility] [address] [place] [address] Dr. Ibis Jimenez CREATININEon 10-02-2021 Creatinine [Mass/Vol] 0.69 mg/dL Normal 0.55-1.02 [facility] Comment on above: Performed By: #### C VDTBH #### [facility] [address] [place] [address] Dr. Ibis Jimenez EGFR-AF INDIAN >60 Normal >=60 [facility] Comment on above: Performed By: #### C VDTBH #### [facility] [address] [place] [address] Dr. Ibis Jimenez EGFR-NON AF INDIAN >60 Normal >=60 [facility] Comment on above: Performed By: #### C VDTBH #### [facility] [address] [place] [address] Dr. Ibis Jimenez CBC AUTO DIFFon 10-01-2021 BASO # 0.0 103/ul Normal 0.0-0.1 [facility] Comment on above: Performed By: #### A MM #### [facility] [address] [place] [address] Dr. Ibis Jimenez Basophils/100 WBC (Bld) 0.3 % Normal 0.2-2.0 [facility] Comment on above: Performed By: #### A MM #### [facility] [address] [place] [address] Dr. Ibis Jimenez EO # 0.1 103/ul Normal 0.0-0.7 [facility] Comment on above: Performed By: #### A MM #### [facility] [address] [place] [address] Dr. Ibis Jimenez Eosinophils/100 WBC (Bld) 1.9 % Normal 0.9-7.0 [facility] Comment on above: Performed By: #### A MM #### [facility] [address] [place] [address] Dr. Ibis Jimenez Erythrocyte distribution width (RBC) [Ratio] 12.7 % Normal 11.0-15.0 [facility] Comment on above: Performed By: #### A MM #### [facility] [address] [place] [address] Dr. Ibis Jimenez Hematocrit (Bld) [Volume fraction] 38.1 % Normal 36.0-48.0 [facility] Comment on above: Performed By: #### A MM #### [facility] [address] [place] [address] Dr. Ibis Jimenez Hemoglobin (Bld) [Mass/Vol] 12.7 g/dL Normal 12.0-16.0 [facility] Comment on above: Performed By: #### A MM #### [facility] [address] [place] [address] Dr. Ibis Jimenez IG # 0.02 10e3/ul Normal 0.00-0.03 [facility] Comment on above: Performed By: #### A MM #### [facility] [address] [place] [address] Dr. Ibis Jimenez IG % 0.3 % Normal 0.0-0.5 [facility] Comment on above: Performed By: #### A MM #### [facility] [address] [place] [address] Dr. Ibis Jimenez LYMPH # 1.9 103/ul Normal 1.2-3.8 [facility] Comment on above: Performed By: #### A MM #### [facility] [address] [place] [address] Dr. Ibis Jimenez Lymphocytes/100 WBC (Bld) 30.5 % Normal 20.5-60.0 [facility] Comment on above: Performed By: #### A MM #### [facility] [address] [place] [address] Dr. Ibis Jimenez MANUAL DIFF REQ NO Normal [facility] Comment on above: Performed By: #### A MM #### [facility] [address] [place] [address] Dr. Ibis Jimenez MCH (RBC) [Entitic mass] 28.3 pg Normal 26.7-34.0 [facility] Comment on above: Performed By: #### A MM #### [facility] [address] [place] [address] Dr. Ibis Jimenez MCHC (RBC) [Mass/Vol] 33.3 g/dL Normal 29.9-35.2 [facility] Comment on above: Performed By: #### A MM #### [facility] [address] [place] [address] Dr. Ibis Jimenez MCV (RBC) [Entitic vol] 85.0 fL Normal 81.0-99.0 [facility] Comment on above: Performed By: #### A MM #### [facility] [address] [place] [address] Dr. Ibis Jimenez MONO # 0.3 103/ul Normal 0.3-0.8 [facility] Comment on above: Performed By: #### A MM #### [facility] [address] [place] [address] Dr. Ibis Jimenez Monocytes/100 WBC (Bld) 5.2 % Normal 1.7-12.0 [facility] Comment on above: Performed By: #### A MM #### [facility] [address] [place] [address] Dr. Ibis Jimenez NEUT # 3.9 103/ul Normal 1.4-6.5 [facility] Comment on above: Performed By: #### A MM #### [facility] [address] [place] [address] Dr. Ibis Jimenez Neutrophils/100 WBC (Bld) 61.8 % Normal 43.0-75.0 [facility] Comment on above: Performed By: #### A MM #### [facility] [address] [place] [address] Dr. Ibis Jimenez Platelet mean volume (Bld) [Entitic vol] 9.7 fL Normal 9.5-13.5 [facility] Comment on above: Performed By: #### A MM #### [facility] [address] [place] [address] Dr. Ibis Jimenez PLT 255 103/ul Normal 150-450 [facility] Comment on above: Performed By: #### A MM #### [facility] [address] [place] [address] Dr. Ibis Jimenez RBC 4.48 106/ul Normal 4.20-5.40 [facility] Comment on above: Performed By: #### A MM #### [facility] [address] [place] [address] Dr. Ibis Jimenez WBC 6.3 103/ul Normal 4.0-11.0 [facility] Comment on above: Performed By: #### A MM #### [facility] [address] [place] [address] Dr. Ibis Jimenez PREG HCG QUALon 10-01-2021 , QUAL Negative Normal NEGATIVE [facility] Comment on above: Performed By: #### M DAVID #### [facility] [address] [place] [address] Dr. Ibis Jimenez [facility] SARS-CoV-2 (COVID-19) RNA SAURABH+probe Ql (Unsp spec) Not detected Normal NOT DETECTED [facility] Comment on above: Result Comment: This test is not yet approved or cleared by the [place] FDA. When there are no FDA-approved or cleared tests available, and other criteria are met, FDA can make tests available under an emergency access mechanism called an Emergency Use Authorization (EUA). The EUA for this test is supported by the [place] of Health and Human Service's (HHS's) declaration [...] SARS-CoV-2. Performed By: #### B MP #### [facility] [address] [place] [address] Dr. Ibis Jimenez TYPE AND SCREENon 09-29-2021 TYPE AND SCREEN Negative Normal [facility] Comment on above: Performed By: #### B MP #### [facility] [address] [place] [address] Dr. Ibis Jimenez Covid-19 PCR ([facility])on SARS-CoV-2 (COVID-19) RNA SAURABH+probe Ql (Unsp spec) Not detected Normal NOT DETECTED [facility] Comment on above: Result Comment: This test is not yet approved or cleared by the [place] FDA. When there are no FDA-approved or cleared tests available, and other criteria are met, FDA can make tests available under an emergency access mechanism called an Emergency Use Authorization (EUA). The EUA for this test is supported by the [place] of Health and Human Service's (HHS's) declaration [...] SARS-CoV-2. Performed By: #### C VDTB #### [facility] [address] [place] [address] Dr. Ibis Jimenez TYPE AND SCREENon 09-21-2021 TYPE AND SCREEN Negative Normal [facility] Comment on above: Performed By: #### B MP #### [facility] [address] [place] [address] Dr. Ibis Jimenez CHLAMYDIA/GONOCOCCUS SAURABH (SW AB/URINE/PAPon 08-17-2021 Chlamydia trachomatis, SAURABH Negative Normal Negative [facility] Comment on above: Performed By: #### A CET SALYC #### [facility] [address] [place] [address] Dr. Ibis Jimenez Neisseria gonorrhoeae, SAURABH Negative Normal Negative [facility] Comment on above: Performed By: #### A CET, SALYC #### [facility] [address] [place] [address] Dr. Ibis Jimenez CBC AUTO DIFFon 08-14-2021 BASO # 0.0 103/ul Normal 0.0-0.1 [facility] Comment on above: Performed By: #### C VDTBH #### [facility] [address] [place] [address] Dr. Ibsi Jimenez Basophils/100 WBC (Bld) 0.3 % Normal 0.2-2.0 [facility] Comment on above: Performed By: #### C VDTBH #### [facility] [address] [place] [address] Dr. Ibis Jimenez EO # 0.2 103/ul Normal 0.0-0.7 [facility] Comment on above: Performed By: #### C VDTBH #### [facility] [address] [place] [address] Dr. Ibis Jimenez Eosinophils/100 WBC (Bld) 2.5 % Normal 0.9-7.0 [facility] Comment on above: Performed By: #### C VDTBH #### [facility] [address] [place] [address] Dr. Ibis Jimenez Erythrocyte distribution width (RBC) [Ratio] 13.0 % Normal 11.0-15.0 [facility] Comment on above: Performed By: #### C VDTBH #### [facility] [address] [place] [address] Dr. Ibis Jimenez Hematocrit (Bld) [Volume fraction] 38.1 % Normal 36.0-48.0 [facility] Comment on above: Performed By: #### C VDTBH #### [facility] [address] [place] [address] Dr. Ibis Jimenez Hemoglobin (Bld) [Mass/Vol] 12.8 g/dL Normal 12.0-16.0 [facility] Comment on above: Performed By: #### C VDTBH #### [facility] [address] [place] [address] Dr. Ibis Jimenez IG # 0.02 10e3/ul Normal 0.00-0.03 [facility] Comment on above: Performed By: #### C VDTBH #### [facility] [address] [address] [address] Ibis Jimenez IG % 0.3 % Normal 0.0-0.5 [facility] Comment on above: Performed By: #### C VDTBH #### [facility] [address] [address] [address] Ibis Jimenez LYMPH # 1.5 103/ul Normal 1.2-3.8 [facility] Comment on above: Performed By: #### C VDTBH #### [facility] [address] [place] [address] Dr. Ibis Jimenez Lymphocytes/100 WBC (Bld) 22.5 % Normal 20.5-60.0 [facility] Comment on above: Performed By: #### C VDTBH #### [facility] [address] [place] [address] Dr. Ibis Jimenez MANUAL DIFF REQ NO Normal [facility] Comment on above: Performed By: #### C VDTBH #### [facility] [address] [place] [address] Dr. Ibis Jimenez MCH (RBC) [Entitic mass] 28.6 pg Normal 26.7-34.0 [facility] Comment on above: Performed By: #### C VDTBH #### [facility] [address] [place] [address] Dr. Ibis Jimenez MCHC (RBC) [Mass/Vol] 33.6 g/dL Normal 29.9-35.2 [facility] Comment on above: Performed By: #### C VDTBH #### [facility] [address] [place] [address] Dr. Ibis Jimenez MCV (RBC) [Entitic vol] 85.0 fL Normal 81.0-99.0 [facility] Comment on above: Performed By: #### C VDTBH #### [facility] [address] [place] [address] Dr. Ibis Jimenez MONO # 0.4 103/ul Normal 0.3-0.8 [facility] Comment on above: Performed By: #### C VDTBH #### [facility] [address] [place] [address] Dr. Ibis Jimenez Monocytes/100 WBC (Bld) 6.3 % Normal 1.7-12.0 [facility] Comment on above: Performed By: #### C VDTBH #### [facility] [address] [place] [address] Dr. Ibis Jimenez NEUT # 4.6 103/ul Normal 1.4-6.5 [facility] Comment on above: Performed By: #### C VDTBH #### [facility] [address] [place] [address] Dr. Ibis Jimenez Neutrophils/100 WBC (Bld) 68.1 % Normal 43.0-75.0 [facility] Comment on above: Performed By: #### C VDTBH #### [facility] [address] [place] [address] Dr. Ibis Jimenez Platelet mean volume (Bld) [Entitic vol] 9.8 fL Normal 9.5-13.5 [facility] Comment on above: Performed By: #### C VDTBH #### [facility] [facility] [address] [place] [address] Dr. Ibis Jimenez PLT 243 103/ul Normal 150-450 [facility] Comment on above: Performed By: #### C VDTBH #### [facility] [address] [place] [address] Dr. Ibis Jimenez RBC 4.48 106/ul Normal 4.20-5.40 [facility] Comment on above: Performed By: #### C VDTBH #### [facility] [address] [place] [address] Dr. Ibis Jimenez WBC 6.7 103/ul Normal 4.0-11.0 [facility] Comment on above: Performed By: #### C VDTBH #### [facility] [address] [place] [address] ABD/PELVIS WO CONon [...] NELI COTTO Date: 2021-08-14 18:00 Normal [facility] ER URINE PROFILEon 2 Bilirubin Ql (U) SMALL Abnormal NEGATIVE [facility] Comment on above: Performed By: #### B MP #### [facility] [address] [place] [address] Dr. Ibis Jimenez Clarity (U) CLEAR Normal CLEAR [facility] Comment on above: Performed By: #### B MP #### [facility] [address] [address] [address] bIis Jimenez Color (U) YELLOW Normal YELLOW [facility] Comment on above: Performed By: #### B MP #### [facility] [address] [address] [address] Ibis Jimenez ERUAHD A micrscopic examination will be performed if indicated. Normal [facility] Comment on above: Performed By: #### B MP #### [facility] [address] [address] [address] Ibis Jimenez Glucose Ql (U) Negative Normal NEGATIVE [facility] Comment on above: Performed By: #### B MP #### [facility] [address] [address] [address] Ibis Jimenez Hemoglobin Ql (U) SMALL Abnormal NEGATIVE [facility] Comment on above: Performed By: #### B MP #### [facility] [address] [address] [address] Ibis Jimenez Ketones Ql (U) TRACE Abnormal NEGATIVE [facility] Comment on above: Performed By: #### B MP #### [facility] [address] [place] [address] Dr. Ibis Jimenez LEUKOCYTES Negative Normal NEGATIVE [facility] Comment on above: Performed By: #### B MP #### [facility] [address] [address] [address] Ibis Jimenez Nitrite Ql (U) Negative Normal NEGATIVE [facility] Comment on above: Performed By: #### B MP #### [facility] [address] [address] [address] Ibis Jimenez pH (U) 5.5 [pH] Normal 5-9 [facility] Comment on above: Performed By: #### B MP #### [facility] [address] [place] [address] Dr. Ibis Jimenez SPEC GRAVITY >=1.030 Abnormal 1.005-<=1.[address] [place] [address] Comment on above: Performed By: #### B MP #### [facility] [address] [place] [address] Dr. Ibis Jimenez UA PROTEIN TRACE Normal NEGATIVE/ TRACE [facility] Comment on above: Performed By: #### B MP #### [facility] [address] [place] [address] Dr. Ibis Jimenez UR MICRO IND INDICATED Normal [facility] Comment on above: Performed By: #### B MP #### [facility] [address] [place] [address] Dr. Ibis Jimenez Urobilinogen Qn (U) 1.0 {Dinorah'U}/dL Normal 0.2 - 1. 0 [facility] Comment on above: Performed By: #### B MP #### [facility] [address] [address] [address] Ibis Jimenez URon 08-14-2021 , QUAL Negative Normal NEGATIVE [facility] Comment on above: Performed By: #### B MP #### [facility] [address] [address] [address] Ibis Jimenez PROF CHEM 8 (BAS METB)on Anion gap [Moles/Vol] 15.3 mmol/L Normal [facility] Comment on above: Performed By: #### B MP #### [facility] [address] [place] [address] Dr. Ibis Jimenez Calcium [Mass/Vol] 8.4 mg/dL Critically low 8.5-10.1 [facility] Comment on above: Performed By: #### B MP #### [facility] [address] [address] [address] Ibis Jimenez Chloride [Moles/Vol] 106 mmol/L Normal 98-107 [facility] Comment on above: Performed By: #### B MP #### [facility] [address] [place] [address] Dr. Ibis Jimenez CO2 [Moles/Vol] 22.3 mmol/L Normal 21.0-32.0 [facility] Comment on above: Performed By: #### B MP #### [facility] [address] [address] [address] Ibis Jimenez Creatinine [Mass/Vol] 0.75 mg/dL Normal 0.55-1.02 [facility] Comment on above: Performed By: #### B MP #### [facility] [address] [place] [address] Dr. Ibis Jimenez EGFR-AF INDIAN >60 Normal >=60 [facility] Comment on above: Performed By: #### B MP #### [facility] [address] [place] [address] Dr. Ibis Jimenez EGFR-NON AF INDIAN >60 Normal >=60 [facility] Comment on above: Performed By: #### B MP #### [facility] [address] [address] [address] Ibis Jimenez Glucose [Mass/Vol] 107 mg/dL Critically high 74-106 [facility] Comment on above: Performed By: #### B MP #### [facility] [address] [address] [address] Ibis Jimenez Potassium [Moles/Vol] 3.6 mmol/L Normal 3.5-5.1 [facility] Comment on above: Performed By: #### B MP #### [facility] [address] [place] [address] Dr. Ibis Jimenez Sodium [Moles/Vol] 140 mmol/L Normal 136-145 [facility] Comment on above: Performed By: #### B MP #### [facility] [address] [place] [address] Dr. Ibis Jimenez Urea nitrogen [Mass/Vol] 13.0 mg/dL Normal 7.0-18.0 [facility] Comment on above: Performed By: #### B MP #### [facility] [address] [place] [address] Dr. Ibis Jimenez Urea nitrogen/Creatinine [Mass ratio] 17.3 mg/mg Normal [facility] Comment on above: Performed By: #### B MP #### [facility] [address] [place] [address] Dr. Ibis Jimenez URINE MICROSCOPIC ONLYon BACTERIA TRACE Abnormal NONE SEEN [facility] Comment on above: Performed By: #### B MP #### [facility] [address] [place] [address] Dr. Ibis Jimenez Bacteria identified Cx Nom (U) NOT INDICATED Normal [facility] Comment on above: Performed By: #### B MP #### [facility] [address] [place] [address] Dr. Ibis Jimenez CAST NONE SEEN Normal NONE SEEN [facility] Comment on above: Performed By: #### B MP #### [facility] [address] [address] [address] Ibis Jimenez Crystals LM Nom (Urine sed) NONE SEEN Normal NONE SEEN [facility] Comment on above: Performed By: #### B MP #### [facility] [address] [address] [address] Ibis Jimenez Epithelial cells LM Ql (Urine sed) MANY Abnormal NONE SEEN /RARE [facility] Comment on above: Performed By: #### B MP #### [facility] [address] [address] [address] Ibis Jimenez MUCOUS SMALL Abnormal NONE SEEN [facility] Comment on above: Performed By: #### B MP #### [facility] [address] [address] [address] Ibis Jimenez RBC 2-5 Abnormal 0-2 [facility] Comment on above: Performed By: #### B MP #### [facility] [address] [address] [address] Ibis iJmenez WBC 2-5 Abnormal NONE SEEN [facility] Comment on above: Performed By: #### B MP #### [facility] [address] [address] [address] Ibis Jimenez CBC Auto DifferentialOrdered By: Vielka Ching on 12-24-2020 [facility] # 0.44 [facility] Work Phone: Absolute Immature Granulocyte 0.05 [employer] [facility] Work Phone: Absolute Lymph # 2.48 [employer] [facility] Work Phone: Absolute Grainger # 0.55 [facility] Work Phone: Basophils (Bld) [#/Vol] 10*3/uL M [employer] Work Phone: Basophils/100 WBC (Bld) 0 % 0 - 2 % M [employer] Work Phone: Differential Type NOT REPORTED [employer] Work Phone: Eosinophils/100 WBC (Bld) 5 % High 1 - 4 % [employer] Phone: Hematocrit (Bld) [Volume fraction] 37.4 % 36.3 - 47.1 % [employer] Phone: Hemoglobin.gastrointest inal spec 1 Ql (Stl) 12.3 g/dL 11.9 - 15.1 g/dL [employer] Phone: Immature granulocytes/100 WBC (Bld) 1 % High 0 [employer] Phone: Interpretation and review of laboratory results Abnormal [employer] Phone: Lymphocytes/100 WBC (Bld) 30 % 24 - 43 % [employer] Phone: MCH (RBC) [Entitic mass] 28.5 pg 25.2 - 33.5 pg [employer] Phone: MCHC (RBC) [Mass/Vol] 32.9 g/dL 28.4 - 34.8 g/dL [employer] Phone: MCV (RBC) [Entitic vol] 86.8 fL 82.6 - 102.9 fL [employer] Phone: Monocytes/100 WBC (Bld) 7 % 3 - 12 % M [employer] Phone: NRBC Automated 0.0 0.0 per 100 WBC [employer] Phone: Platelet distribution width (Bld) [Ratio] 12.7 % 11.8 - 14.4 % [employer] Phone: Platelet Estimate NOT REPORTED [employer] Phone: Platelet mean volume (Bld) [Entitic vol] 9.4 fL 8.1 - 13.5 fL [employer] Phone: Platelets (Bld) [#/Vol] 252 10*3/uL [employer] Phone: RBC (Bld) [#/Vol] 4.31 10*6/uL 3.95 - 5.1 1 m/uL [facility] Work Phone: RBC (Bld) [#/Vol] NOT REPORTED [facility] [employer] Work Phone: Segmented neutrophils/100 WBC (Bld) 57 % 36 - 65 % [facility] [employer] Work Phone: Segs Absolute 4.78 [facility] Work Phone: WBC (Bld) [#/Vol] 8.3 10*3/uL [facility] Work Phone: WBC (Bld) [#/Vol] NOT REPORTED [facility] Work Phone: [facility] [employer] Work Phone: CBC with Diffon 12-24-2020 Abs. Basophil <0.03 Normal 0.00-0.20 [facility] Comment on above: Performed By: #### C MPX, CDP #### [address] [place] [address] [employer]: Souleymane Pineda MD Abs.Imm.Granulocyte 0.05 k/uL Normal 0.00-0.30 [facility] Comment on above: Performed By: #### C MPX, CDP #### [address] [place], [place] [id number] [employer]: Souleymane Pineda MD Abs.Neutrophil (Seg) 4.78 k/uL Normal 1.50-8.10 [facility] Comment on above: Performed By: #### C MPX, CDP #### [address] [place] [address] [employer]: Souleymane Pineda MD Basophils/100 WBC (Bld) 0 % Normal 0-2 [facility] Comment on above: Performed By: #### C MPX, CDP #### [address] [place] [address] [employer]: Souleymane Pineda MD Eosinophils (Bld) [#/Vol] 0.44 10*3/uL Normal 0.00-0.44 [facility] Comment on above: Performed By: #### C MPX, CDP #### [facility] [address] [place] [address] Dr. [place], [place] [id number] [employer]: Souleymane Pineda MD Eosinophils/100 WBC (Bld) 5 % High 1-4 [facility] Comment on above: Performed By: #### C MPX, CDP #### [address] [place], [place] [id number] [employer]: Souleymane Pineda MD Erythrocyte distribution width (RBC) [Ratio] 12.7 % Normal 11.8-14.4 [facility] Comment on above: Performed By: #### C MPX, CDP #### [address] [place], [facility] [employer]: Souleymane Pineda MD Hematocrit (Bld) [Volume fraction] 37.4 % Normal 36.3-47.1 [facility] Comment on above: Performed By: #### C MPX, CDP #### [address] [place], [place] [id number] [employer]: Souleymane Pineda MD Hemoglobin (Bld) [Mass/Vol] 12.3 g/dL Normal 11.9-15.1 [facility] Comment on above: Performed By: #### C MPX, CDP #### [facility] [address] [place] [address] Dr[place], [place] [id number] [employer]: Souleymane Pineda MD Immature granulocytes/100 WBC (Bld) 1 % High 0 [facility] Comment on above: Performed By: #### C MPX, CDP #### [facility] [address] [place] [address] [place] [address] [employer]: Souleymane Pineda MD Lymphocytes (Bld) [#/Vol] 2.48 10*3/uL Normal 1.10-3.70 [facility] Comment on above: Performed By: #### C MPX, CDP #### [address] [place] [address] [employer]: Souleymane Pineda MD Lymphocytes/100 WBC (Bld) 30 % Normal 24-43 [facility] Comment on above: Performed By: #### C MPX, CDP #### [address] [place] [address] [employer]: Souleymane Pineda MD MCH (RBC) [Entitic mass] 28.5 pg Normal 25.2-33.5 [facility] Comment on above: Performed By: #### C MPX, CDP #### [address] [place] [address] [employer]: Souleymane Pineda MD MCHC (RBC) [Mass/Vol] 32.9 g/dL Normal 28.4-34.[address] [facility] Comment on above: Performed By: #### C MPX, CDP #### [address] [place] [address] [employer]: Souleymane Pineda MD MCV (RBC) [Entitic vol] 86.8 fL Normal 82.6-102.9 [facility] Comment on above: Performed By: #### C MPX, CDP #### [address] [place] [address] [employer]: Souleymane Pineda MD Monocytes (Bld) [#/Vol] 0.55 10*3/uL Normal 0.10-1.20 [facility] Comment on above: Performed By: #### C MPX, CDP #### [address] [place] [address] [employer]: Souleymane Pineda MD Monocytes/100 WBC (Bld) 7 % Normal 3-12 [facility] Comment on above: Performed By: #### C MPX, CDP #### [facility] [address] [place], [place] [id number] [employer]: Souleymane Pineda MD Neutrophil (Seg) 57 % Normal 36-65 [facility] Comment on above: Performed By: #### C MPX, CDP #### [facility] [address] [place], [place] [id number] [employer]: Souleymane Pineda MD NRBC Automated 0.0 per 100 WBC Normal 0.0 [facility] Comment on above: Performed By: #### C MPX, CDP #### [facility] [address] [place], [place] [id number] [employer]: Souleymane Pineda MD Platelet mean volume (Bld) [Entitic vol] 9.4 fL Normal 8.1-13.5 [facility] Comment on above: Performed By: #### C MPX, CDP #### [address] [place], [place] [address]83 [employer]: Souleymane Pineda MD Platelets (Bld) [#/Vol] 252 10*3/uL Normal 138-453 [facility] Comment on above: Performed By: #### C MPX, CDP #### [address] [place] [address] [employer]: Souleymane Pineda MD RBC (Bld) [#/Vol] 4.31 10*6/uL Normal 3.95-5.11 [facility] Comment on above: Performed By: #### C MPX, CDP #### [facility] [address] [place] [address] [employer]: Souleymane Pineda MD WBC (Bld) [#/Vol] 8.3 10*3/uL Normal 3.5-11.3 [facility] Comment on above: Performed By: #### C MPX, CDP #### [facility] [address] [place] [address] [employer]: Souleymane Pineda MD Auto Diff Performed NOT REPORTED Normal [facility] Comment on above: Performed By: #### C MPX, CDP #### [facility] [address] [place] [address] [employer]: Souleymane Pineda MD Platelet Comment NOT REPORTED Normal [facility] Comment on above: Performed By: #### C MPX, CDP #### [facility] [address] [place] [address] [employer]: Souleymane Pineda MD RBC morphology finding Nom (Bld) NOT REPORTED Normal [facility] Comment on above: Performed By: #### C MPX, CDP #### [facility] [address] [place] [address] [place] [address] [employer]: Souleymane Pineda MD WBC Morphology NOT REPORTED Normal [facility] Comment on above: Performed By: #### C MPX, CDP #### [facility] [address] [place] [address] Dr[place], [place] [id number] [employer]: Souleymane Pineda MD CT HEAD WO CONTRASTon [...] the orbits demonstrate no acute abnormality. SINUSES: Jztc-vb-rhrclbez paranasal sinus mucosal thickening. SOFT TISSUES/SKULL: No acute abnormality of the visualized skull or soft tissues. IMPRESSION: No acute intracranial abnormality. Interpreted by: Edwin Bentley MD Signed by: Edwin Bentley MD 12/24/20 Final result Normal [facility] CT Head WO ContrastOrdered B y: Vielka Ching on 12-24-2020 No acute intracranial abnormality. [employer] Phone: EXAMINATION: CT OF THE HEAD WITHOUT [...] the orbits demonstrate no acute abnormality. SINUSES: Urbp-jl-jfztfjty paranasal sinus mucosal thickening. SOFT TISSUES/SKULL: No acute abnormality of the visualized skull or soft tissues. [employer] Phone: Dimitri, [facility] Incoming Radiant Results From [employer] - 12/24/2020 8:49 PM EDT EXAMINATION: CT [...] the orbits demonstrate no acute abnormality. SINUSES: Gtba-gl-cplxieix paranasal sinus mucosal thickening. SOFT TISSUES/SKULL: No acute abnormality of the visualized skull or soft tissues. IMPRESSION: No acute intracranial abnormality. [facility] Work Phone: [facility] Work Phone: Comp Metabolic Pr/rfx MGon 1 02-24-2020 Bilirubin [Mass/Vol] mg/dL Low 0.3-1.2 [facility] Comment on above: Performed By: #### C RONNX, CDP #### [facility] [address] [place] [address] [employer]: Souleymane Pineda MD (cont.) Normal [facility] Comment on above: Result Comment: Aver age GFR for 20-29 years old: 116 mL/min/1.73sq m Chronic Kidney Disease: <60 mL/min/1.73sq m Kidney failure: <15 mL/min/1.73sq m eGFR calculated using average adult body mass. Additional eGFR calculator available at: http://www.[employer]/multiple_crcl_2012.htm Performed By: #### C JULIA, CDP #### [address] [place] [address] [employer]: Souleymane Pineda MD Albumin [Mass/Vol] 4.0 g/dL Normal 3.5-5.2 [facility] Comment on above: Performed By: #### C RONNX, CDP #### [facility] [address] [place] [address] [employer]: Souleymane Pineda MD Albumin/Glob Ratio 1.5 Normal 1.0-2.5 [facility] Comment on above: Performed By: #### C RONNX, CDP #### [facility] [address] [place] [id number] [employer]: Souleymane Pineda MD Alkaline Phos 90 U/L Normal 35-104 [facility] Comment on above: Performed By: #### C MPX, CDP #### [facility] [address] [place], [place] [id number] [employer]: Souleymane Pineda MD ALT [Catalytic activity/Vol] 40 U/L High 5-33 [facility] Comment on above: Performed By: #### C MPX, CDP #### [facility] [address] [place], [place] [id number] [employer]: Souleymane Pineda MD Anion gap [Moles/Vol] 11 mmol/L Normal 9-[address] [facility] Comment on above: Performed By: #### C MPX, CDP #### [facility] [address] [place], [place] [id number] [employer]: Souleymane Pineda MD AST [Catalytic activity/Vol] 19 U/L Normal <32 [facility] Comment on above: Performed By: #### C MPX, CDP #### [facility] [address] [place], [place] [id number] [employer]: Souleymane Pineda MD BUN/CRE Ratio 15 Normal 9-20 [facility] Comment on above: Performed By: #### C MPX, CDP #### [facility] [address] [place], [place] [id number] [employer]: Souleymane Pineda MD Calcium [Mass/Vol] 8.9 mg/dL Normal 8.6-10.4 [facility] Comment on above: Performed By: #### C MPX, CDP #### [facility] [address] [place], [place] [id number] [employer]: Souleymane Pineda MD Chloride [Moles/Vol] 104 mmol/L Normal 98-107 [facility] Comment on above: Performed By: #### C MPX, CDP #### [facility] [address] [place], [place] [id number] [employer]: Souleymane Pineda MD CO2 [Moles/Vol] 24 mmol/L Normal 20-31 [facility] Comment on above: Performed By: #### C MPX, CDP #### [facility] [address] [place], [place] [id number] [employer]: Souleymane Pineda MD Creatinine [Mass/Vol] 0.60 mg/dL Normal 0.50-0.[address] [facility] Comment on above: Performed By: #### C MPX, CDP #### [facility] [address] [place], [place] [id number] [employer]: Souleymane Pineda MD GFR, Amer >60 Normal >60 [facility] Comment on above: Performed By: #### C MPX, CDP #### [facility] [address] [place], [place] [id number] [employer]: Souleymane Pineda MD GFR,non Amer >60 Normal >60 [facility] Comment on above: Performed By: #### C MPX, CDP #### [facility] [address] [place], [place] [id number] [employer]: Souleymane Pineda MD Glucose [Mass/Vol] 91 mg/dL Normal 70-99 [facility] Comment on above: Performed By: #### C MPX, CDP #### [facility] [address] [place], [place] [address]208483 [employer]: Souleymane Pineda MD Potassium [Moles/Vol] 4.0 mmol/L Normal 3.7-5.[address] [facility] Comment on above: Performed By: #### C MPX, CDP #### [facility] [address] [place], [place] [id number] [employer]: Souleymane Pineda MD Protein [Mass/Vol] 6.7 g/dL Normal 6.4-8.3 [facility] Comment on above: Performed By: #### C MPX, CDP #### [facility] [address] [place] [address] [employer]: Souleymane Pineda MD Sodium [Moles/Vol] 139 mmol/L Normal 135-144 [facility] Comment on above: Performed By: #### C MPX, CDP #### [facility] [address] [place] [address] [employer]: Souleymane Pineda MD Staging: Normal [facility] Comment on above: Result Comment: Stag e 1: Some kidney damage normal GFR Stage 2: Mild kidney damage GFR 60-89 Stage 3: Moderate kidney damage GFR 30-59 Stage 4: Severe kidney damage GFR 15-29 Stage 5: Severe kidney damage GFR <15 ESRD - chronic treatment by dialysis or transplant Performed By: #### C MPX, CDP #### [facility] [address] [place] [address] [employer]: Souleymane Pineda MD Urea nitrogen [Mass/Vol] 9 mg/dL Normal 6-20 [facility] Comment on above: Performed By: #### C MPX, CDP #### [facility] [address] [place] [address] [place] [address] [employer]: Souleymane Pineda MD Comprehensive Metabolic Pane l w/ Reflex to MGOrdered By: Vielka Ching on 12-24-2020 Albumin [Mass/Vol] 4 g/dL 3.5 - 5.2 g/dL [employer] [facility] Work Phone: Albumin/Globulin [Mass ratio] 1.5 {ratio} [employer] Phone: ALP (Bld) [Catalytic activity/Vol] 90 U/L 35 - 104 U/L [employer] Phone: ALT [Catalytic activity/Vol] 40 U/L High 5 - 33 U/L [employer] Phone: Anion gap [Moles/Vol] 11 mmol/L 9 - 17 mmol/L [employer] Phone: AST [Catalytic activity/Vol] 19 U/L <32 [employer] Phone: Bilirubin [Mass/Vol] mg/dL Low 0.3 - 1 .2 mg/dL [employer] Phone: Calcium [Mass/Vol] 8.9 mg/dL 8.6 - 10. 4 mg/dL [employer] Phone: Chloride [Moles/Vol] 104 mmol/L 98 - 10 7 mmol/L [employer] Phone: CO2 [Moles/Vol] 24 mmol/L 20 - 31 mmol/L [employer] Phone: Creatinine [Mass/Vol] 0.6 mg/dL 0.50 - 0.90 mg/dL [employer] Phone: Free PSA/Total PSA [Mass fraction] 6.7 g/dL 6.4 - 8.3 g/dL [employer] Phone: GFR >60 >60 mL/min [employer] Phone: GFR Non- >60 >60 mL/min [employer] Phone: Glucose [Mass/Vol] 91 mg/dL 70 - 99 mg/dL [employer] Phone: Interpretation and review of laboratory results Abnormal [employer] Phone: Potassium [Moles/Vol] 4.0 mmol/L 3.7 - 5.3 mmol/L [employer] Phone: Sodium [Moles/Vol] 139 mmol/L 135 - 144 mmol/L [employer] Phone: Urea nitrogen (BldV) [Mass/Vol] 9 mg/dL 6 - 20 mg/dL [employer] Phone: Urea nitrogen/Creatinine (Bld) [Mass ratio] 15 [employer] Work Phone: [employer] Work Phone: Laboratory - Chemistry and C hemistry - challengeOrdered By: Vielka Ching on 12-24-2020 GFR/1.73 sq M.predicted MDRD (S/P/Bld) [Vol rate/Area] [facility] Work Phone: Comment on above: Average GFR for 20-2 9 years old: 116 mL/min/1.73sq m Chronic Kidney Disease: <60 mL/min/1.73sq m Kidney failure: <15 mL/min/1.73sq m eGFR calculated using average adult body mass. Additional eGFR calculator available at: http://www.Microarrays/multiple_crcl_2012.htm Stage 1: Some kidney damage normal GFR [...] pressure 63 mm[Hg] Infusion 8 Work Phone: [facility] 11-11-2022 10:55-0400 Heart rate 83 /min Infusion 8 Work Phone: [facility] 11-11-2022 10:55-0400 Systolic blood pressure 110 mm[Hg] Infusion 8 Work Phone: [facility] 07-28-2022 10:15-0400 Diastolic blood pressure 50 mm[Hg] Infusion 8 Work Phone: [facility] 07-28-2022 10:15-0400 Heart rate 80 /min Infusion 8 Work Phone: [facility] 07-28-2022 10:15-0400 Systolic blood pressure 105 mm[Hg] Infusion 8 Work Phone: [facility] 12-03-2021 09:47-0400 Diastolic blood pressure 81 mm[Hg] Jessecristiana Borrego Work Phone: [facility] 12-03-2021 09:47-0400 Heart rate 66 /min Jesse Borrego MD Work Phone: [facility] 12-03-2021 09:47-0400 SaO2% (BldA) [Mass fraction] 100 % Jesse Salima Work Phone: [facility] 12-03-2021 09:47-0400 Systolic blood pressure 131 mm[Hg] Jesse Borrego MD Work Phone: [facility] 10-20-2021 12:00-0400 Diastolic blood pressure 101 mm[Hg] Lucila Mota MD Work Phone: [facility] [employer] 10-20-2021 12:00-0400 Heart rate 85 /min Lucila Mota MD Work Phone: [facility] [employer] 10-20-2021 12:00-0400 Respiratory rate 12 /min Lucila Mota MD Work Phone: [facility] [employer] 10-20-2021 12:00-0400 SaO2% (BldA) [Mass fraction] 98 % Lucila Mota MD Work Phone: [facility] [employer] 10-20-2021 12:00-0400 Systolic blood pressure 136 mm[Hg] Lucila Mota MD Work Phone: [employer] 10-20-2021 08:00-0400 Body temperature 98.2 [degF] Lucila Mota MD Work Phone: [facility] [employer] 12-24-2020 19:36-0400 Body temperature 99 [degF] Vielka Ching DO Work Phone: [employer] Work Phone: 12-24-2020 19:36-0400 Diastolic blood pressure 80 mm[Hg] Vielka Ching DO Work Phone: [employer] Work Phone: 12-24-2020 19:36-0400 Heart rate 108 /min Vielka Ching [employer] Work Phone: [employer] Work Phone: 12-24-2020 19:36-0400 Respiratory rate 20 /min Vielka Ching DO Work Phone: [employer] Work Phone: 12-24-2020 19:36-0400 SaO2% (BldA) [Mass fraction] 96 % Vielka Ching [employer] Work Phone: [employer] Work Phone: 12-24-2020 19:36-0400 Systolic blood pressure 136 mm[Hg] Vielka Ching DO Work Phone: [employer] Work Phone: Encounters Encounter Date Encounter Type Care Provider Facility Start: 02-07-2023 End: 02-07-2023 ambulatory ZAY LEONARDO Not Available Start: 01-26-2023 End: 01-26-2023 ambulatory ZAY LEONARDO Not Available Start: 12-13-2022 Refill Cameroni Green APR N.STRUCTURAL DRAFTSMAN Work Phone: Neurology Headache [facility] Comment on above: Refill Request Infusion (HEADACHE I NFUSIONS) Start: 12-12-2022 End: 12-12-2022 ambulatory KOLI GREEN Facility:[facility] Start: 12-09-2022 Refill Ольга Cardona er POWER ELECTRONICS ENGINEER.STRUCTURAL DRAFTSMAN Work Phone: Neurology Comment on above: Refill Request Start: 11-11-2022 End: 11-11-2022 ambulatory Infusion Main Chair 8 Work Phone: Neurology Comment on above: 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 with status migrainosus (Primary Dx) Start: 11-10-2022 End: 11-10-2022 ambulatory ОЛЬГА Rhina AGUILAR Facility:[facility] Start: 11-10-2022 End: 11-10-2022 ambulatory Ольга Aguilar POWER ELECTRONICS ENGINEER.STRUCTURAL DRAFTSMAN Work Phone: Neurology Comment on above: 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 with status migrainosus (Primary Dx) Nerve block Start: 11-10-2022 Telephone encounter Suzan dinero APRN.STRUCTURAL DRAFTSMAN Work Phone: Neurology Comment on above: Infusion Start: 11-10-2022 End: 11-10-2022 Telemedicine consultation with patient Ольга Aguilar UMANG.STRUCTURAL DRAFTSMAN Work Phone: [facility] Start: 11-10-2022 ambulatory Ramsey Nunn acility:[facility] Start: 10-12-2022 End: 10-12-2022 ambulatory Suzan Uche HECK.STRUCTURAL DRAFTSMAN Work Phone: Neurology Comment on above: Botox Start: 10-12-2022 E-mail encounter alexus brown caregiver Suzan Uche HECK.FADY Work Phone: [facility] Start: 09-29-2022 Telephone encounter Angely rousseau RN Work Phone: [facility] Comment on above: Insurance Authorizat ion (Zomig 5MG nasal spray/) Start: 09-27-2022 ambulatory Logan Barth APR N.STRUCTURAL DRAFTSMAN Work Phone: NEUR HEADACHE [facility] Comment on above: My apt Monday Start: 09-16-2022 ambulatory Logan Barth APR N.STRUCTURAL DRAFTSMAN Work Phone: [facility] Start: 09-16-2022 Patient encounter procedure Logan Barth APRN.STRUCTURAL DRAFTSMAN Work Phone: NEUR HEADACHE [facility] Comment on above: Appointment Start: 09-12-2022 End: 09-12-2022 ambulatory LOGAN BARTH Facility:[facility] Start: 08-31-2022 End: 08-31-2022 ambulatory LOGAN BARTH Facility:[facility] Start: 08-31-2022 End: 08-31-2022 ambulatory Logan Barth POWER ELECTRONICS ENGINEER.STRUCTURAL DRAFTSMAN Work Phone: Neurology Comment on above: Chronic migraine w/o aura, not intractable, w/o stat migr (Primary Dx) Start: 08-31-2022 End: 08-31-2022 Telemedicine consultation with patient Logan Barth POWER ELECTRONICS ENGINEER.STRUCTURAL DRAFTSMAN Work Phone: [facility] Start: 08-09-2022 ambulatory Logan Barth APR N.STRUCTURAL DRAFTSMAN Work Phone: NEUR HEADACHE [facility] Comment on above: Pain Start: 08-08-2022 End: 08-08-2022 ambulatory Jesse Borrego MD Work Phone: Neurology Comment on above: 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 with status migrainosus (Primary Dx) Start: 08-08-2022 End: 08-08-2022 Telemedicine consultation with patient Jesse Salima Work Phone: [facility] Start: 08-07-2022 ambulatory Jesse rick MD Work Phone: Neurology Comment on above: Name of medication Start: 07-29-2022 End: 07-29-2022 ambulatory MARIA DEL ROSARIO HAHN Facility:[facility] Start: 07-28-2022 End: 07-28-2022 ambulatory MARIA DEL ROSARIOODETTE HAHN Facility:[facility] Start: 07-28-2022 End: 07-28-2022 ambulatory Infusion Main Chair 8 Work Phone: Neurology Comment on above: 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 with status migrainosus (Primary Dx) Start: 07-27-2022 End: 07-27-2022 ambulatory MARIA DEL ROSARIO HAHN Facility:[facility] Start: 07-21-[address] ZAY BLAS . Facili ty:[facility] Start: 07-14-2022 Encounter for other preprocedural examination DR ZAY BLAS . [facility] Start: 07-12-2022 End: 07-13-[address] ZAY BLAS . Facility:[facility] Start: 07-12-2022 End: 07-13-2022 Encounter for other preprocedural examination DR ZAY BLAS . Facility:[facility] Start: 07-05-2022 ambulatory KRISTOFER Nunn acility:[facility] Start: 06-27-2022 Telephone encounter Logan Tab SCHMITTN.STRUCTURAL DRAFTSMAN Work Phone: Neurology Comment on above: Appointment (infusio n) Start: 06-24-2022 End: 06-24-2022 ambulatory LOGAN BARTH Facility:[facility] Start: 06-20-2022 End: 06-20-2022 ambulatory MANJINDER [...] Migraines Start: 05-23-2022 End: 05-24-2022 ambulatory PATRICIA Shane WALSH Facility:[facility] Start: 05-08-2022 End: 05-08-2022 ambulatory LUH CAPONE . Facility:[facility] Start: 04-01-2022 End: 04-01-2022 Evaluation and management of inpatient DINORAH IVY Facility:[facility] Start: 03-31-2022 End: 04-01-[address] [...] Start: 11-10-2021 End: 11-10-2021 ambulatory Nelly Saldaña PA-C Work Phone: Neurology Comment on above: Seizure-like activit y (HCC) (Primary Dx) Start: 11-10-2021 End: 11-10-2021 Telemedicine consultation with patient Nelly Saldaña KRISTOFER Work Phone: [facility] Start: 11-09-2021 ambulatory Tyrone Dolan MD, PhD Work Phone: [facility] Start: 11-09-2021 Patient encounter procedure Tyrone Dolan MD, PhD Work Phone: Neurology Comment on above: Request Georgianaido appoin tment Start: 11-08-2021 ambulatory Tyrone Dolan MD, PhD Work Phone: [facility] Start: 11-08-2021 Patient encounter procedure Tyrone Dolan MD, PhD Work Phone: Neurology Comment on above: Appointment Start: 11-08-2021 Telephone encounter Tyrone Dolan MD, PhD Work Phone: Neurology Comment on above: Orders Start: 11-04-2021 End: 11-04-2021 ambulatory MANJINDER GLADSTONE Facility: Start: 10-29-2021 End: 10-29-2021 ambulatory Tyrone Dolan MD, PhD Work Phone: Neurology Comment on above: Psychogenic nonepile ptic seizure (Primary Dx); Spells of trembling; Chronic intractable headache, unspecified headache type Start: 10-29-2021 End: 10-29-2021 Telemedicine consultation with patient Tyrone Dolan MD, PhD Work Phone: [facility] Start: 10-26-2021 Patient encounter procedure Román Storey MD Work Phone: Neurology Comment on above: Seizure-like activit y (HCC) (Primary Dx) Start: 10-19-2021 End: 10-20-2021 Evaluation and management of inpatient LUCILA MOTA [facility] Start: 10-19-2021 End: 10-20-2021 Evaluation and management of inpatient Lucila Mota MD Work Phone: [facility] 1B Neuro ICU Start: 10-19-2021 End: 10-19-2021 ambulatory Joseph KAVITA Facility:[facility] Start: 10-07-2021 End: 10-07-[address] ZAY BLAS . Facility:[facility] Start: 10-06-2021 End: 10-06-2021 ambulatory SUKHDEEP Kishan MAURERMINOO Facility:[facility] Start: 10-03-2021 End: 10-04-2021 ambulatory MANJINDER DEAL Facility:[facility] Start: 10-01-2021 End: 10-02-2021 Evaluation and management of inpatient DR ANGÉLICA ARTHUR Facility:[facility] Start: 10-01-2021 Encounter for preprocedural laboratory examination DR ZAY BLAS . [facility] Start: 09-29-2021 End: 09-30-[address] ZAY BLAS . Facility:[facility] Start: 09-29-2021 End: 09-30-2021 Encounter for preprocedural laboratory examination DR ZAY BLAS . Facility:[facility] Start: 09-21-2021 End: 09-22-[address] AGNÉLICA ARTHUR Facility:[facility] Start: 09-14-2021 End: 09-15-[address] ANGÉLICA ARTHUR Facility:[facility] Start: 08-14-2021 End: 08-14-2021 ambulatory BLUE GRACE Facility:[facility] Start: 08-14-2021 End: 08-14-2021 ambulatory BLUE GRACE Facility:[facility] Start: 12-24-2020 End: 12-24-2020 Emergency department patient visit ANGÉLICA ARTHUR [facility] Start: 12-24-2020 End: 12-24-2020 Emergency department patient visit Vielka Joshua PETIT Work Phone: [facility] ED Comment on above: Migraine without [...] Start: 10-20-2021 EEG VIDEO MONITORING Marcy Perez POWER ELECTRONICS ENGINEER - [facility] Work Phone: Start: 10-20-2021 BASIC METABOLIC PANE L W/ REFLEX TO MG FOR LOW K Puri Rikki Mota MD Work Phone: Start: 10-20-2021 Blood count complete auto&auto difrntl wbc Lo Perez [facility] Work Phone: Start: 10-20-2021 IMMATURE PLATELET FRACTION Lo Perez [facility] Work Phone: Start: 10-19-2021 Assay of lactate Alexiso radha Perez [facility] Work Phone: Start: 10-19-2021 Ecg routine ecg w/le ast 12 lds w/i&r Lo Perez [facility] Work Phone: Start: 10-19-2021 Mri brain brain stem w/o w/contrast material Lo Perez [facility] Work Phone: Start: 10-19-2021 RESPIRATORY CARE EVALUATION ONLY Lo Perez [facility] Work Phone: Start: 10-01-2021 Resection of Bilater [...] DTaP/Tdap/Td vaccine (7 - Td or Tdap) [facility] Start: 09-20-2025 Urine microalbumin profile DTaP,Tdap,Td Vaccine (7 - Td or Tdap) [facility] Start: 10-29-2022 Adult depression screening assessment DEPRESSION SCREENING [facility] Start: 10-21-2022 Influenza vaccination [facility] Start: 02-20-2022 DEPRESSION ASSESSMENT DEPRESSION ASS [facility] Start: 10-26-2021 End: 10-26-2022 SARS-CoV-2 (COVID-19) RNA [Presence] in Respiratory specimen by SAURABH with probe detection PRE-PROCEDURE & PRE-OPERATIVE COVID Microbiology Routine Seizure-like activity (HCC) Expected: 10/26/2021, Expires: 10/26/2022 [facility] Work Phone: Comment on above: Expected: 10/26/2021 , Expires: 10/26/2022 Start: 10-21-2021 Influenza vaccination B ON [facility] Start: 02-20-2021 DEPRESSION ASSESSMENT DEPRESSION ASS [facility] Start: 10-21-2020 Influenza vaccination Flu vaccine (# 1) [facility] Phone: Start: 11-13-2016 PAP TESTING PAP TESTING [facility] Start: 11-13-2016 Screening for malign ant neoplasm of cervix Pap smear [facility] Start: 11-13-2014 Urine microalbumin profile [facility] Start: 11-13-2013 Hepatitis C screening Hepatitis C sc reen [facility] Start: 11-13-2013 HEPATITIS C SCREENING HEPATITIS C [facility] Start: 11-13-2013 HIV SCREENING HIV SCREENING [facility] Start: 2011 Screening for Chlamy rose trachomatis Chlamydia screen [facility] Start: 11-13-2010 HIV screening HIV screen [facility] Start: 11-13-2009 PEDS TO ADULT TRANSITION ANNUAL ASSESSMENT PEDS TO ADULT TRANSITION ANNUAL ASSESSMENT [facility] Start: 2007 Adult depression screening assessment DEPRESSION SCREENING [facility] Start: 2007 COVID-19 Vaccine (1) COVID-19 Vaccin e (1) [employer] Phone: Start: 2007 Depression Screen Depression Screen [facility] Start: 2007 PEDS TO ADULT TRANSITION INITIAL DISCUSSION PEDS TO ADULT TRANSITION INITIAL DISCUSSION [facility] Start: 11-13-2006 HPV VACCINE (1 - 2-d ose series) HPV VACCINE (1 - 2-dose series) [facility] Start: 11-13-2004 HPV VACCINE (1 - 2-d ose series) HPV VACCINE (1 - 2-dose series) [facility] Start: 05-13-1996 COVID-19 Vaccine (#1) COVID-19 Vacci ne (#1) [facility] [employer] Start: 1995 HEPATITIS B (1 of 3 - 3-dose series) HEPATITIS B (1 of 3 - 3-dose series) [facility] Start: 1995 Hepatitis B Vaccine (1 of 3 - 3-dose series) Hepatitis B Vaccine (1 of 3 - 3-dose series) [facility] Start: 1995 Hepatitis C screening Hepatitis C [facility] [employer] Phone: End: 10-26-2021 Basic Metabolic Panel w/ Reflex to MG Basic Metabolic Panel w/ Reflex to MG Lab Routine Daily for 7 Days starting 10/20/2021 until 10/26/2021 [employer] Phone: Comment on above: Daily for 7 Days sta rting 10/20/2021 until 10/26/2021 End: 10-26-2021 CBC W Auto Differential panel - Blood CBC with Auto Differential Lab Routine Daily for 7 Days starting 10/20/2021 until 10/26/2021, 1 completed [employer] Phone: Comment on above: Daily for 7 Days sta rting 10/20/2021 until 10/26/2021, 1 completed EKG 12 Lead EKG 12 Lead ECG Routine 10/19/2021 5:55 PM EDT [employer] Phone: End: 10-29-2022 EPIL AMBULATORY EEG EPIL AMBULATORY EEG NEUROLOGY Routine Psychogenic nonepileptic seizure Spells of trembling 1 Occurrences starting 10/29/2021 until 10/29/2022 [facility] [employer] Work Phone: Comment on above: 1 Occurrences starti ng 10/29/2021 until 10/29/2022 End: 10-26-2022 EPIL EEG LEAD PLACEMENT EPIL EEG LEAD PLACEMENT NEUROLOGY Routine Seizure-like activity (HCC) 1 Occurrences starting 10/26/2021 until 10/26/2022 [facility] Work Phone: Comment on above: 1 Occurrences starti ng 10/26/2021 until 10/26/2022 End: 11-08-2022 EPIL EEG ROUTINE EPIL EEG ROUTINE NEUROLOGY Routine Seizure-like activity (HCC) 1 Occurrences starting 11/08/2021 until 11/08/2022 [facility] Work Phone: Comment on above: 1 Occurrences starti ng 11/08/2021 until 11/08/2022 EPIL VEEG ADMIT TO EMU/PMU EPIL VEEG ADMIT TO EMU/PMU NEUROLOGY Routine Seizure-like activity (HCC) Ordered: 10/26/2021 [facility] Work Phone: Comment on above: Ordered: 10/26/2021 Oxygen therapy [[facility] Data Set] Initiate Oxygen Therapy Protocol Respiratory Care Routine As Needed until discontinued starting 10/19/2021 [facility] Work Phone: Comment on above: As Needed until disc ontinued starting 10/19/2021 [facility] Immunizations Immunization Date Immunization Notes Care Provider Preethi black 12-08-2017 influenza virus vacc ine, unspecified formulation Suzan Driver APRN.STRUCTURAL DRAFTSMAN Work Phone: [facility] Payers Date Payer Category Payer Self-pay 2017 Medicaid [place] [employer] [employer] [id number] 2017-Present Medicaid [id number] 2013 Medicaid [id number] 2011 Unknown 1995 Unknown [id number] 2.16.840.1.699637.3.579.2.173 1995 Unknown [id number] 2.16.840.1.743177.3.579.2.175 1995 Unknown [id number] 2.16.840.1.723292.3.579.2.727 1995 Unknown [id number] 2.16.840.1.939454.3.579.2.593 1995 Unknown [id number] 2.16.840.1.881514.3.579.2.593 1995 Unknown [id number] 2.16.840.1.394477.3.579.2.593 1995 Unknown [id number] 2.16.840.1.881967.3.579.2.593 1995 Unknown [id number] 2.16.840.1.218199.3.579.2.593 1995 Unknown [id number] 2.16.840.1.340144.3.579.2.593 1995 Unknown [id number] 2.16.840.1.319612.3.579.2.593 1995 Unknown [id number] 2.16.840.1.284383.3.579.2.593 1995 Unknown [id number] 2.16.840.1.696728.3.579.2.593 1995 Unknown [id number] 2.16.840.1.965693.3.579.2.593 1995 Unknown [id number] 2.16.840.1.392452.3.579.2.593 1995 Unknown [id number] 2.16.840.1.558251.3.579.2.593 1995 Unknown [id number] 2.16.840.1.924869.3.579.2.593 1995 Unknown [id number] 2.16.840.1.885322.3.579.2.593 1995 Unknown [id number] 2.16.840.1.156009.3.579.2.593 1995 Unknown [id number] 2.16.840.1.424718.3.579.2.593 1995 Unknown [id number] 2.16.840.1.799433.3.579.2.593 1995 Unknown [id number] 2.16.840.1.872511.3.579.2.593 1995 Unknown [id number] 2.16.840.1.899635.3.579.2.593 1995 Unknown [id number] 2.16.840.1.432250.3.579.2.593 1995 Unknown [id number] 2.16.840.1.160389.3.579.2.593 1995 Unknown [id number] 2.16.840.1.664361.3.579.2.593 1995 Unknown [id number] 2.16.840.1.646726.3.579.2.1259 1995 Unknown [id number] 2.16.840.1.794690.3.579.2.1259 1959 Unknown [id number] 1.2.840.273351.1.13.239.2.7.3.6 [id number] Social History Date Type Detail Facility Tobacco smoking stat [facility] Unknown if ever smoked [facility] Start: 1995 Sex Assigned At Not on file [facility] Start: 12-24-2020 End: 10-12-2022 Tobacco smoking status WVIS Never smoker [employer] Phone: Start: 12-24-2020 End: 10-12-2022 Tobacco use and exposure Never used [employer] Start: 12-24-2020 Alcohol intake Ex-drinker (finding) [employer] Phone: Start: 10-16-2021 End: 07-28-2022 Exposure to SARS-CoV-2 (event) Not sure [employer] Tobacco smoking stat us [facility] Tobacco smoking consumption unknown [facility] Work Phone: Start: 06-23-2022 End: 08-08-2022 History of Social function [facility] Start: 06-23-2022 End: 08-08-2022 Patient Health Questionnaire 2 item (PHQ-2) [Reported] [facility] Adult Depression Screening Assessment 2 [facility] Clinical Notes 12-24-2020 to 12-13-2022 [...] would call back to schedule Logan Barth APRN.STRUCTURAL DRAFTSMAN P Headache Infusion Scheduling Pool; P C21 Botox Pool Pls schedule for infusions, and also her next botox treatment - thank you. KG documented in this encounter [facility] 12-13-2022 Miscellaneous Notes PA submitted through [employer] for Orphenadrine Citrate ER 100mg. Cohen Code: [id number] documented in this encounter [facility] 12-12-2022 Note HNO ID: [id number] Author: Logan Barth APRN.FADY Service: ? Author [...] visit. Either the patient or their legal passenger representative has been informed of the risks [...] XL, Qudexy) Anti-Depressant and Antipsychotic Amitriptyline (Elavil) [place]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 Epilepsy [facility] Review of Records Patient: Margaret Nicholson Address: [address] [place] [address] Impression: Review of records for Margaret Nicholson, [...] cholecystectomy, caesarean , tubal ligation PRIOR EVALUATIONS: [place] [address] Video EEG ([facility], 10/19/2021-10/20/2021): Normal continuous video-EEG. The events that were captured did not correlate with epileptic seizures. No epileptiform discharges were identified. MRI brain wo/w contrast ([facility], 10/19/2021): Unremarkable MRI of the brain ANDRZEJ Recommendations: - Admit to U for VEEG monitoring, diagnostic evaluation Location: Main [place] - Visit with epileptologist prior to admission - Additional testing to be considered by epilepsy clinicians Signed: Geri Madera APRN.STRUCTURAL DRAFTSMAN October 26, [address] Storey for review and recommendations. --------- Recommendations (as discussed with Dr. Storey): - Please proceed with the above plan. Please route this encounter to the EMU Scheduling Pool ( P EMU ) or PMU Scheduling Pool ( P PMU ) through LOS & Follow up PHASE 1.0 AND 1.5 ORDER SYNOPSIS Patient: Margaret Nicholson ([id number]) Best contact number: [phone] Insurance: No coverage found. Scheduling Team: Please call for adult patients: Mendoza Torres ([phone]) Chucky Cantor ([phone]) Fabiola Sharpe([phone]) Nikkie Mahajan([phone]) Please call for pediatric patients: Chucky Cantor ([phone]) Fabiola Sharpe ([phone]) Mendoza Torres ([phone]) Nikkie Mahajan([phone]) Appointments and Tests PRE-PROCEDURE & PRE-OPERATIVE COVID [...] off/on office visits. documented in this encounter [facility] 10-20-2021 Hospital Discharg e instructions UMANG Garcia [...] sent through Care Everywhere.Non-Epileptic Seizure: General Info ([place])documented in this encounter [facility] Work Phone: 10-20-2021 History of Presen t [...] hysterectomy who presented as a transfer from [facility] for seizure like episodes. Per [...] [facility], [facility] 12. Per documentation, patient had at least 13 seizure like episodes, lasting 10-60 seconds, described as grand mal. She was given 10mg Valium IV, 1g Keppra IV, 720mg Phenobarbital IV. CT Head without contrast unremarkable. Labs unremarkable including normal TSH, lactic, negative UA. Transferred to [facility] Neuro ICU for further management. Per mother, [...] brain mass recently (last 6 months) at [facility] and is supposed to have a brain biopsy in November 2021. Patient recently saw Dr. Vicky De Dios ([facility]) on 08/06/21 for migraines and [...] On arrival to the Neuro ICU, Adrienne (RODEO PERFORMER) witnessed two brief (~10 seconds) episodes of [...] with patient and mom. Records requested from [facility] where patient states she was seen and [...] hysterectomy who presented as a transfer from [place] ED for seizure like episodes. NEUROLOGIC: - [...] UMANG Garcia CNP Neuro Critical Care Pager [phone] 10/20/2021 6:49 AM ALTM is running. Pt [...] at 100%. [facility] Work Phone: 10-01-2021 Note DISCHARGE SUMMARY DISCHARGE DATE: [...] free and no longer on narcotics. [facility] 10-01-2021 Note OPERATIVE NOTE OPERATION DATE: 10/01/2021 PROCEDURE: Total abdominal hysterectomy with partial bilateral salpingectomy with cystoscopy. PREOPERATIVE DIAGNOSIS: Menorrhagia, dysmenorrhea, dyspareunia, pelvic pain. POSTOPERATIVE DIAGNOSIS: Menorrhagia, dysmenorrhea, dyspareunia, pelvic pain. ANESTHESIA: General. SURGEON: Zay Blas D.O. MAGNETIC TAPE TYPEWRITER OPERATOR: VERNA Yap URINE OUTPUT: Yellow and clear. [...] Recovery Room in stable condition. ?? [facility] 08-14-2021 Note PROCEDURE: US PELVIS TRANSVAG, [...] by: NICOLE MEDELLIN Date: 2021-08-14 10:19 [facility] 12-24-2020 Hospital Vielka Griffiths DO - 12/24/2020 Continue all home medications as prescribed. Follow up with your family doctor and neurologist. Return to the emergency department for new, worsening or worrisome symptoms. documented in this encounter [employer] Phone: Evaluation note Diagnosis Migraine without status migrainosus, not intractable, unspecified migraine type- Primary documented in this encounter [employer] Phone: evaluation note* Diagnosis Seizure-like activity (HCC)- Primary Other convulsions Seizure disorder (HCC) Unspecified epilepsy without mention of intractable epilepsy Psychogenic nonepileptic seizure documented in this encounter JEREMIAH SINGHBAKARI [employer] Phone: evaluation note* Diagnosis Seizure-like activity (HCC)- Primary Other convulsions [facility] [place] Diagnosis Psychogenic nonepileptic seizure- Primary Spells of trembling Abnormal involuntary movements Chronic intractable headache, unspecified headache type [facility] [place] [facility] Diagnosis Seizure-like activity (HCC)- Primary Other convulsions Psychogenic nonepileptic seizure [facility] [place] [facility]* Diagnosis Seizure-like activity (HCC)- Primary Other convulsions [facility] [place] [facility] Diagnosis Chronic migraine w/o aura, not intractable, w/o stat migr- Primary [facility] [place] [facility]* Diagnosis 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 with status migrainosus- Primary Chronic migraine without aura, with intractable migraine, so stated, with status migrainosus [facility] [place] [facility]* Diagnosis 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 with status migrainosus- Primary Chronic migraine without aura, with intractable migraine, so stated, with status migrainosus [facility] [place] [facility]* Diagnosis Chronic migraine w/o aura, not intractable, w/o stat migr- Primary documented [facility] this [facility] [place] [facility]* Diagnosis 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 with status migrainosus- Primary Chronic migraine without aura, with intractable migraine, so stated, with status migrainosus documented [facility] [place] [facility]* Diagnosis 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 with status migrainosus- Primary Chronic migraine without aura, with intractable migraine, so stated, with status migrainosus documented [facility] [place] [facility]* Diagnosis Chronic migraine w/o aura, not intractable, w/o stat migr Cervicalgia Migraine without aura and without status migrainosus, not intractable Migraine without aura, without mention of intractable migraine without mention of status migrainosus documented in this encounter [facility] for referral (narrative)* Outpatient Procedure (Routine) - Pending Review Specialty Diagnoses / Procedures Referred By Contac t Referred To [facility] Diagnoses Seizure-like activity (HCC) Procedures EPIL EEG LEAD PLACEMENT EEG EXTENDED MONITORING 61-119 MINUTES ELECTROENCEPHALOGRAM REC COMA/SLEEP ONLY Geri Madera APRN.CNP [address] [place] [address] [place] [address] Referral ID Status Reason Start Date Expiration Date Visits Requested Visits Authorized [id number] Pending Review Auto-Generat ed Referral 10/26/2021 10/26/2022 1 1 [facility] for referral (narrative)* Outpatient Procedure (Routine) - Pending Review Specialty Diagnoses / Procedures Referred By Contac t Referred To [facility] Diagnoses Psychogenic nonepileptic seizure Spells of trembling Procedures EPIL AMBULATORY EEG EEG COMPLETE STD PHYS/QHP&GT;84 HR W/O Tyrone Diaz MD, PhD [id number] [place] [address] Referral ID Status Reason Start Date Expiration Date Visits Requested Visits Authorized [id number] Pending Review Auto-Generat ed Referral 10/29/2021 10/29/2022 1 1 * Outpatient Procedure (Routine) - Pending Review Specialty Diagnoses / Procedures Referred By Contac t Referred To [facility] Diagnoses Psychogenic nonepileptic seizure Spells of trembling Procedures EPIL AMBULATORY EEG EEG COMPLETE STD PHYS/QHP&GT;84 HR W/O Tyrone Diaz MD, PhD [id number] [place] [address] Referral ID Status Reason Start Date Expiration Date Visits Requested Visits Authorized [id number] Pending Review Auto-Generat ed Referral 10/29/2021 10/29/2022 1 1 * Consult, Test, Treat (Routine) - Authorized Specialty Diagnoses / Procedures Referred By Contac t Referred To Contact Diagnoses Chronic intractable headache, unspecified headache type Procedures CONSULT TO HEADACHE CLINIC OFFICE/OUTPATIENT [facility] MDM 60-74 MINUTES Tyrone Dolan MD, PhD [address] [facility] [address] [place] [address] Referral ID Status Reason Start Date Expiration Date Visits Requested Visits Authorized [id number] Authorized PCP Requested Referral 10/29/2021 10/29/2022 1 1 [facility] Outpatient Procedure (Routine) - Pending Review Specialty Diagnoses / Procedures Referred By Contac t Referred To Contact [facility] Diagnoses Seizure-like activity (HCC) Procedures EPIL EEG ROUTINE ELECTROENCEPHALOGRAM REC COMA/SLEEP ONLY Nelly Saldaña PA-C [address] [place] [address] [place] [address] Referral ID Status Reason Start Date Expiration Date Visits Requested Visits Authorized [id number] Pending Review Auto-Generat ed Referral 11/08/2021 11/08/2022 1 1 [facility] Advance Directives No Advanced Directives Records FoundDocuments on File Type Date Recorded Patient Director Of Graduate Medical Education Expl anation ACP-Advance Directive ACP-Power of Circular Clerk Latest Code Status on File Code Status [...] t Referred To Contact Samples, MD Jesse [address] [place] [address] Referral ID Status Reason Start Date Expiration Date Visits Re quested Visits Authorized [id number] Closed 1 1 Additional Source Comments Source Comments (unrecognize d section and content) In the event this informatio n is protected by the Federal Confidentiality of Alcohol and Drug Abuse Patient Records regulations: The Federal rules restrict any use of the information to criminally investigate or prosecute any alcohol or drug abuse patient.[facility] the event this information is protected by the Federal Confidentiality of Alcohol and Drug Abuse Patient Records regulations: The Federal rules restrict any use of the information to criminally investigate or prosecute any alcohol or drug abuse patient.[facility] the event this information is protected by the Federal Confidentiality of Alcohol and Drug Abuse Patient Records regulations: The Federal rules restrict any use of the information to criminally investigate or prosecute any alcohol or drug abuse patient.[facility] the event this information is protected by the Federal Confidentiality of Alcohol and Drug Abuse Patient Records regulations: The Federal rules restrict any use of the information to criminally investigate or prosecute any alcohol or drug abuse patient.[facility] the event this information is protected by the Federal Confidentiality of Alcohol and Drug Abuse Patient Records regulations: The Federal rules restrict any use of the information to criminally investigate or prosecute any alcohol or drug abuse patient.[facility] the event this information is protected by the Federal Confidentiality of Alcohol and Drug Abuse Patient Records regulations: The Federal rules restrict any use of the information to criminally investigate or prosecute any alcohol or drug abuse patient.[facility] the event this information is protected by the Federal Confidentiality of Alcohol and Drug Abuse Patient Records regulations: The Federal rules restrict any use of the information to criminally investigate or prosecute any alcohol or drug abuse patient.[facility] the event this information is protected by the Federal Confidentiality of Alcohol and Drug Abuse Patient Records regulations: The Federal rules restrict any use of the information to criminally investigate or prosecute any alcohol or drug abuse patient.[facility] the event this information is protected by the Federal Confidentiality of Alcohol and Drug Abuse Patient Records regulations: The Federal rules restrict any use of the information to criminally investigate or prosecute any alcohol or drug abuse patient.[facility] the event this information is protected by the Federal Confidentiality of Alcohol and Drug Abuse Patient Records regulations: The Federal rules restrict any use of the information to criminally investigate or prosecute any alcohol or drug abuse patient.[facility] the event this information is protected by the Federal Confidentiality of Alcohol and Drug Abuse Patient Records regulations: The Federal rules restrict any use of the information to criminally investigate or prosecute any alcohol or drug abuse patient.[facility] the event this information is protected by the Federal Confidentiality of Alcohol and Drug Abuse Patient Records regulations: The Federal rules restrict any use of the information to criminally investigate or prosecute any alcohol or drug abuse patient.[facility] the event this information is protected by the Federal Confidentiality of Alcohol and Drug Abuse Patient Records regulations: The Federal rules restrict any use of the information to criminally investigate or prosecute any alcohol or drug abuse patient.[facility] the event this information is protected by the Federal Confidentiality of Alcohol and Drug Abuse Patient Records regulations: The Federal rules restrict any use of the information to criminally investigate or prosecute any alcohol or drug abuse patient.[facility] the event this information is protected by the Federal Confidentiality of Alcohol and Drug Abuse Patient Records regulations: The Federal rules restrict any use of the information to criminally investigate or prosecute any alcohol or drug abuse patient.[facility] the event this information is protected by the Federal Confidentiality of Alcohol and Drug Abuse Patient Records regulations: The Federal rules restrict any use of the information to criminally investigate or prosecute any alcohol or drug abuse patient.[facility] the event this information is protected by the Federal Confidentiality of Alcohol and Drug Abuse Patient Records regulations: The Federal rules restrict any use of the information to criminally investigate or prosecute any alcohol or drug abuse patient.[facility] the event this information is protected by the Federal Confidentiality of Alcohol and Drug Abuse Patient Records regulations: The Federal rules restrict any use of the information to criminally investigate or prosecute any alcohol or drug abuse patient.[facility] the event this information is protected by the Federal Confidentiality of Alcohol and Drug Abuse Patient Records regulations: The Federal rules restrict any use of the information to criminally investigate or prosecute any alcohol or drug abuse patient.[facility] the event this information is protected by the Federal Confidentiality of Alcohol and Drug Abuse Patient Records regulations: The Federal rules restrict any use of the information to criminally investigate or prosecute any alcohol or drug abuse patient.[facility] the event this information is protected by the Federal Confidentiality of Alcohol and Drug Abuse Patient Records regulations: The Federal rules restrict any use of the information to criminally investigate or prosecute any alcohol or drug abuse patient.[facility] the event this information is protected by the Federal Confidentiality of Alcohol and Drug Abuse Patient Records regulations: The Federal rules restrict any use of the information to criminally investigate or prosecute any alcohol or drug abuse patient.[facility] the event this information is protected by the Federal Confidentiality of Alcohol and Drug Abuse Patient Records regulations: The Federal rules restrict any use of the information to criminally investigate or prosecute any alcohol or drug abuse patient.[facility] the event this information is protected by the Federal Confidentiality of Alcohol and Drug Abuse Patient Records regulations: The Federal rules restrict any use of the information to criminally investigate or prosecute any alcohol or drug abuse patient.[facility] the event this information is protected by the Federal Confidentiality of Alcohol and Drug Abuse Patient Records regulations: The Federal rules restrict any use of the information to criminally investigate or prosecute any alcohol or drug abuse patient.[facility] the event this information is protected by the Federal Confidentiality of Alcohol and Drug Abuse Patient Records regulations: The Federal rules restrict any use of the information to criminally investigate or prosecute any alcohol or drug abuse patient.[facility] the event this information is protected by the Federal Confidentiality of Alcohol and Drug Abuse Patient Records regulations: The Federal rules restrict any use of the information to criminally investigate or prosecute any alcohol or drug abuse patient.[facility] the event this information is protected by the Federal Confidentiality of Alcohol and Drug Abuse Patient Records regulations: The Federal rules restrict any use of the information to criminally investigate or prosecute any alcohol or drug abuse patient.[facility] Reason for Visit (unrecogniz ed section and content) Reason Comments Future Appointment [place], [place], Any Reason Comments Migraine seen at [place] yest erday for Migrane and D & [...] Headache Specialty Diagnoses / Procedures Referred By Sushma t Referred To Contact Neurology / HEADACHE Diagnoses DHE Procedures INFUSION HEADACHE Maria Del Rosario Hahn MD [address] [place] [address] Neur Headache Main [address] [place] [address] Referral ID Status Reason Start Date Expiration Date Visits Re quested Visits Authorized [id number] Closed 07/28/2022 09/26/2022 1 1 Reason Comments Chronic Migraine Reason Comments Chronic Migraine Reason Comments Insurance Authorization Zomig 5MG nasal spray Reason Comments Infusion Reason Comments Migraine Specialty Diagnoses / Procedures Referred By Contac t Referred To Contact Neurology / HEADACHE Diagnoses POSSIBLE DHE/WAITING FOR ORDERS Procedures INFUSION HEADACHE Self Neur Headache Main [address] [id number] Referral ID Status Reason Start Date Expiration Date V isits Requested Visits Authorized [id number] Authorized 11/10/2022 02/08/2023 1 99 Reason Onset [...] 1245, Until Discontinued, Indication of Use: Prophylaxis-DVT/PE 183 (Given - Provider: Adrienne Stephens RN) 0834 (Given - Provider: Clementine Cm, PRATIBHA) [...] 1515, OK to repeat x1 for MRI 170 (Given - Provider: Adrienne Stephens RN) sodium [...] RN) 1114 (Canceled Entry - Provider: Clementine Cm RN)2100 (Due) Continuous Medication Order 10/18/2021 10/19/2021 [...] section and content) DATE CREATED AUTHOR 12/26/2020 [facility] DATE CREATED AUTHOR AUTHOR'S ORGANIZ ATION 10/25/2021 [facility] DATE CREATED AUTHOR AUTHOR'S ORGANIZ ATION 05/26/2022 [facility] DATE CREATED AUTHOR AUTHOR'S ORGANIZ ATION 08/02/2022 [facility] DATE CREATED AUTHOR AUTHOR'S ORGANIZ ATION 02/10/2023 [facility] DATE CREATED AUTHOR AUTHOR'S ORGANIZ ATION 02/21/2023 [facility] DATE CREATED AUTHOR AUTHOR'S ORGANIZ ATION 03/01/2023 [facility] Ordered Prescriptions (unrec ognized section and content) Prescription Sig Dispensed Refills Start Date End Da te lamoTRIgine (LAMICTAL) 25 MG tablet Take 2 tablets by mouth daily 30 tablet 3 10/21/2021 Care Teams (unrecognized sec tion and content) Supervisor Varnish Relationship Specialty Start Date End Date Angélica Arthur, POWER ELECTRONICS ENGINEER - STRUCTURAL DRAFTSMAN [address] [place] [address] PCP - General Nurse Practitioner 12/24/20 Supervisor Varnish Relationship Specialty Start Date End Date Hoy, Maria Del Rosario M (Historical) PCP - General 05/21/13 Supervisor Varnish Relationship Specialty Start Date End Date Hoy, Maria Del Rosario M (Historical) PCP - General 05/21/13 Supervisor Varnish Relationship Specialty Start Date End Date Hoy, Maria Del Rosario M (Historical) PCP - General 05/21/13 Supervisor Varnish Relationship Specialty Start Date End Date Hoy, Maria Del Rosario M (Historical) PCP - General 05/21/13 Supervisor Varnish Relationship Specialty Start Date End Date Hoy, Maria Del Rosario M (Historical) PCP - General 05/21/13 Supervisor Varnish Relationship Specialty Start Date End Date Hoy, Maria Del Rosario M (Historical) PCP - General 05/21/13 Supervisor Varnish Relationship Specialty Start Date End Date Hoy, Maria Del Rosario M (Historical) PCP - General 05/21/13 Supervisor Varnish Relationship Specialty Start Date End Date Hoy, Maria Del Rosario M (Historical) PCP - General 05/21/13 Supervisor Varnish Relationship Specialty Start Date End Date Hoy, Maria Del Rosario M (Historical) PCP - General 05/21/13 Supervisor Varnish Relationship Specialty Start Date End Date Hoy, Maria Del Rosario M (Historical) PCP - General 05/21/13 Supervisor Varnish Relationship Specialty Start Date End Date Hoy, Maria Del Rosario M (Historical) PCP - General 05/21/13 Supervisor Varnish Relationship Specialty Start Date End Date Hoy, Maria Del Rosario M (Historical) PCP - General 05/21/13 Supervisor Varnish Relationship Specialty Start Date End Date Hoy, Maria Del Rosario M (Historical) PCP - General 05/21/13 Supervisor Varnish Relationship Specialty Start Date End Date Hoy, Maria Del Rosario M (Historical) PCP - General 05/21/13 Supervisor Varnish Relationship Specialty Start Date End Date Hoy, Maria Del Rosario M (Historical) PCP - General 05/21/13 Supervisor Varnish Relationship Specialty Start Date End Date Hoy, Maria Del Rosario M (Historical) PCP - General 05/21/13 Supervisor Varnish Relationship Specialty Start Date End Date Hoy, Maria Del Rosario M (Historical) PCP - General 05/21/13 Supervisor Varnish Relationship Specialty Start Date End Date Hoy, Maria Del Rosario M (Historical) PCP - General 05/21/13 Supervisor Varnish Relationship Specialty Start Date End Date Hoy, Maria Del Rosario M (Historical) PCP - General 05/21/13 Supervisor Varnish Relationship Specialty Start Date End Date Hoy, Maria Del Rosario M (Historical) PCP - General 05/21/13 Supervisor Varnish Relationship Specialty Start Date End Date Hoy, Maria Del Rosario M (Historical) PCP - General 05/21/13 Supervisor Varnish Relationship Specialty Start Date End Date Hoy, [...] BE BASED ON THE PRIMARY CLINICAL RECORDS. [facility] [employer]. provides no warranty or guarantee of the accuracy or completeness of information in this document.
--- NOTE | 2023-03-03 09:37 | XR_ITS ---
The [address] [address] Patient Name: MARGARET PLATT MRN: [id number] date: 1995 Sex: F Assigned Patient Location: ER Current Patient Location: ER Accession/Order Number: [id number] Exam Date: 03/03/2023 09:40 Report Date: 03/03/2023 10:00 At the request of: DENNIS TAMAYO Procedure: XR chest 1V FRONTAL CHEST; 03/03/2023 9:40 AM EST Clinical History:dyspnea Comparison: 01/26/2023 . AP portable upright film. No apparent change osseous structures. No change cardiac and mediastinal silhouettes or rosalba. No failure pattern. No focal infiltrate. No pleural effusion. Lungs are well expanded. XR/XR chest 1V IMPRESSION: 1. No acute findings Electronically authenticated by: NICOLE CORNEJO Date: 03/03/2023 10:00
--- NOTE | 2023-03-03 09:42 | ED.URI1 ---
HPI - URI/Sore Throat General Chief Complaint: Upper Respiratory Infection Stated Complaint: SHORTNESS OF BREATH Time Seen by Provider: 03/03/23 09:36 Source: patient History of Present Illness HPI Narrative: patient's here for continued shortness of breath and coughing. Historically said she started getting sick seven days ago. She states her initial symptoms were slight runny nose slight headache increasing cough and shortness of breath. Five days ago she went to local urgent care and they started her on Cipro and steroids. She's been using back to back nebulizer treatments at home. She says she was admitted to the hospital here several months ago for exacerbation of asthma. She does not use tobacco products. She's not had any sputum production. She denies any pain or pressure in her chest. She says she just developed a little bit of sore throat yesterday. She states that the urgent care tested her for Covid it was negative. She retested several days at home and it was still negative. She was not tested for influenza or respiratorry syncytial virus that she is aware of. She does not have any gastrointestinal symptoms today. Her vital signs are noted. She does have pulse ox ninety-five percent on room air. Rest rewrite is clinically elevated when I examine her. Related Data Home Medications Medication Instructions Recorded Confirmed baclofen 10 mg tablet 10 mg PO TID PRN spasms 07/20/22 03/03/23 diazepam 10 mg tablet 10 mg PO BID 07/20/22 03/03/23 epinephrine 0.3 mg/0.3 mL 0.3 mg IM Q10M PRN anaphylaxis 07/20/22 03/03/23 injection, auto-injector trazodone 300 mg PO .qhs 07/20/22 03/03/23 estradiol 0.5 mg tablet 0.5 mg PO QAM 01/06/23 03/03/23 diphenhydramine HCl 25 mg capsule 75 mg PO PRN PRN migraine headache 01/26/23 03/03/23 (Benadryl) ibuprofen 800 mg tablet 800 mg PO Q8H PRN pain 01/26/23 03/03/23 lamotrigine 200 mg tablet 200 mg PO .hs 01/26/23 03/03/23 lamotrigine 25 mg tablet 25 mg PO .q am 01/26/23 01/26/23 lithium carbonate 300 mg capsule 300 mg PO BID 01/26/23 03/03/23 loratadine-pseudoephedrine ER 10 1 tab PO DAILY 01/26/23 01/26/23 mg-240 mg tablet,extended [id number] (AllerClear D-24hr) magnesium See Rx Instructions .Route 01/26/23 03/03/23 .COMPLEX PRN migraine headache orphenadrine citrate 100 mg 100 mg PO PRN migraine 01/26/23 03/03/23 tablet,extended release promethazine 25 mg tablet 12.5 mg PO Q6H PRN nausea and 01/26/23 03/03/23 vomiting toradol 10 mg PO Q6H PRN migraine headache 01/26/23 03/03/23 albuterol sulfate 2.5 mg/3 mL 2.5 mg inhalation Q4H PRN 03/03/23 03/03/23 (0.083 %) solution for nebulization shortness of breath or wheezing Previous Rx's Medication Instructions Recorded prednisone 20 mg tablet 20 mg PO BID 5 days #10 tabs 01/27/23 ondansetron 4 mg disintegrating 4 mg PO Q6H PRN nausea and 02/26/23 tablet vomiting #20 tabs sulfacetamide sodium 10 % eye drops 2 drp ophthalmic (eye) Q4H #15 mL 02/26/23 Allergies Allergy/AdvReac Type Severity Reaction Status Date / Time buspirone Allergy Hives Verified 03/03/23 09:09 carbamazepine Allergy Unknown Verified 03/03/23 09:09 levetiracetam [From Keppra] Allergy ITCHING Verified 03/03/23 09:09 azithromycin [From Zithromax] AdvReac Intermediate Hives Verified 03/03/23 09:09 bee venom protein (honey bee) AdvReac Intermediate Hives Verified 03/03/23 09:09 metoclopramide [From Reglan] AdvReac Intermediate panic Verified 03/03/23 09:09 adhesive tape AdvReac Mild Rash Verified 03/03/23 09:09 cephalexin [From Keflex] AdvReac Mild Hives Verified 03/03/23 09:09 dextromethorphan AdvReac Mild Unknown Verified 03/03/23 09:09 [From [place] [facility]] pyrilamine [From [place] [facility]] AdvReac Mild Unknown Verified 03/03/23 09:09 propranolol AdvReac Hives Verified 03/03/23 09:09 [facility] Medical History (Updated 03/03/23 @ 11:37 by Jesse Estrada MD) Seizure disorder ?G40.909 - Epilepsy, unspecified, not intractable, without status epilepticus (ICD-10) Bipolar disorder ?F31.9 - Bipolar disorder, unspecified (ICD-10) Pelvic pain ?R10.2 - Pelvic and perineal pain (ICD-10) Headache ?R51.9 - Headache, unspecified (ICD-10) Bilateral occipital neuralgia ?M54.81 - Occipital neuralgia (ICD-10) Migraine ?G43.909 - Migraine, unspecified, not intractable, without status migrainosus (ICD-10) Post-op pain ?G89.18 - Other acute postprocedural pain (ICD-10) Combative behavior ?R46.89 - Other symptoms and signs involving appearance and behavior (ICD-10) Postoperative nausea and vomiting ?R11.2 - Nausea with vomiting, unspecified (ICD-10) ?Z98.890 - Other specified postprocedural states (ICD-10) Vaginal bleeding ?N93.9 - Abnormal uterine and vaginal bleeding, unspecified (ICD-10) Abscess of vagina ?N76.0 - Acute vaginitis (ICD-10) PCOS (polycystic ovarian syndrome) ?E28.2 - Polycystic ovarian syndrome (ICD-10) Mitral valve prolapse ?I34.1 - Nonrheumatic mitral (valve) prolapse (ICD-10) Vaginal delivery ?O80 - Encounter for full-term uncomplicated delivery (ICD-10) Nausea ?R11.0 - Nausea (ICD-10) GERD (gastroesophageal reflux disease) ?K21.9 - Gastro-esophageal reflux disease without esophagitis (ICD-10) Depression ?F32.A - Depression, unspecified (ICD-10) Blood in urine ?R31.9 - Hematuria, unspecified (ICD-10) Acne ?L70.9 - Acne, unspecified (ICD-10) Dyspareunia Brain mass ?G93.89 - Other specified disorders of brain (ICD-10) Pneumonia ?J18.9 - Pneumonia, unspecified organism (ICD-10) Kidney stones ?N20.0 - Calculus of kidney (ICD-10) COVID-19 ?U07.1 - COVID-19 (ICD-10) Bronchitis ?J40 - Bronchitis, not specified as acute or chronic (ICD-10) Asthma ?J45.909 - Unspecified asthma, uncomplicated (ICD-10) Stress incontinence ?N39.3 - Stress incontinence (female) (male) (ICD-10) Dysuria ?R30.0 - Dysuria (ICD-10) Seizure ?R56.9 - Unspecified convulsions (ICD-10) Neck pain ?M54.2 - Cervicalgia (ICD-10) Migraine ?G43.909 - Migraine, unspecified, not intractable, without status migrainosus (ICD-10) Low back pain ?M54.50 - Low back pain, unspecified (ICD-10) Head injury ?S09.90XA - Unspecified injury of head, initial encounter (ICD-10) Anxiety ?F41.9 - Anxiety disorder, unspecified (ICD-10) Surgical History (Updated 01/06/23 @ 12:50 by Rocio Schwartz NP) H/O laparoscopy (07/21/22) ?Z98.890 - Other specified postprocedural states (ICD-10) S/P RAVI-BSO ?Z90.710 - Acquired absence of both cervix and uterus (ICD-10) ?Z90.722 - Acquired absence of ovaries, bilateral (ICD-10) ?Z90.79 - Acquired absence of other genital organ(s) (ICD-10) Hx laparoscopic cholecystectomy ?Z90.49 - Acquired absence of other specified parts of digestive tract (ICD-10) H/O: ?Z98.891 - History of uterine scar from previous surgery (ICD-10) History of appendectomy ?Z90.49 - Acquired absence of other specified parts of digestive tract (ICD-10) Family History (Updated 07/20/22 @ 17:40 by Irlanda Weiss RN) Other Acid reflux Acute renal disease Afib Chromosomal disorder Delayed developmental milestones Diabetes Family history of hypertension High cholesterol Neuro-irritability due to autonomic dysfunction Primary ciliary dyskinesia due to transposition of ciliary microtubules Pulmonary aspiration Tachycardia Social History (Updated 01/20/23 @ 08:49 by Joyce Zhong) Within the past year, how often did you have a drink containing alcohol: never Score interpretation: A score less than 3 is consistent with normal alcohol consumption. 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 She does have a bronchospastic type cough. There is no cyanosis there is no stridor is no upper airway obstruction. Her voice is normal. Lungs disclose decreased aeration bilaterally with bronchospasm. Her skin integumentary normal no evidence of petechiae purpura rash or exanthem. There is no leg edema. She does not have any abdominal tenderness. Her cognition and mentation are normal with exception of the anxiety. Incidentally old charts indicate that she does have bipolar illness. ENT examination shows no over or evidence of airway obstruction or rhinitis. There is no conjunctivitis. She is in very aggressive with breathing treatments at home. She was given IV Solu-Medrol in the Emergency Room and another DuoNeb. Constitutional Vital Signs, click to edit/add: Last Vital Signs Temp 98 F 03/03/23 08:57 Pulse 98 H 03/03/23 09:37 Resp 20 03/03/23 08:57 BP 148/92 H 03/03/23 08:57 Pulse Ox 95 03/03/23 09:37 O2 Del Method Room Air 03/03/23 09:37 Course Vital Signs Vital signs: Vital Signs Temperature 98 F 03/03/23 08:57 Pulse Rate 104 H 03/03/23 08:57 Respiratory Rate 20 03/03/23 08:57 Blood Pressure 148/92 H 03/03/23 08:57 Pulse Oximetry 95 03/03/23 08:57 Oxygen Delivery Method Room Air 03/03/23 08:57 Temperature 98 F 03/03/23 08:57 Pulse Rate 98 H 03/03/23 09:37 Respiratory Rate 20 03/03/23 08:57 Blood Pressure 148/92 H 03/03/23 08:57 Pulse Oximetry 95 03/03/23 09:37 Oxygen Delivery Method Room Air 03/03/23 09:37 MDM - URI/Sore Throat MDM Narrative Medical decision making narrative: the patient does not have any abnormalities on her chest x-ray but she does have improvement of her wheezing but gets hypoxic desaturating and ninety-one percent when she ambulates in the hallway here. We will go and talk to primary care on-call physician about admission and supportive care for her. Her viral testing titers were all negative. Discharge Plan Discharge Chief Complaint: Upper Respiratory Infection Clinical Impression: Acute exacerbation of extrinsic asthma Patient Disposition: Admitted as Observation Time of Disposition Decision: 11:37 Prescriptions / Home Meds: No Action baclofen 10 mg tablet 10 mg PO TID PRN (Reason: spasms) Rx Instructions: per refill hx: last filled 01/17/23 for QTY 90 / 30 days diazepam 10 mg tablet 10 mg PO BID Rx Instructions: per refill hx: last filled 12/31/22 for QTY 60 / 30 days epinephrine 0.3 mg/0.3 mL auto-injector 0.3 mg IM Q10M PRN (Reason: anaphylaxis) Rx Instructions: for 2 doses trazodone 300 mg PO .qhs Rx Instructions: per refill hx: last filled 01/17/23 for QTY 30 / 30 days sulfacetamide sodium 10 % drops 2 drp ophthalmic (eye) Q4H Qty: 15 0RF ondansetron 4 mg tablet,disintegrating 4 mg PO Q6H PRN (Reason: nausea and vomiting) Qty: 20 0RF albuterol sulfate 2.5 mg /3 mL (0.083 %) solution for nebulization 2.5 mg inhalation Q4H PRN (Reason: shortness of breath or wheezing) estradiol 0.5 mg tablet 0.5 mg PO QAM AllerClear D-24hr 10-240 mg tablet extended release 24 hr 1 tab PO DAILY Rx Instructions: per refill hx: last filled 01/17/23 for QTY 30 / 30 days ibuprofen 800 mg tablet 800 mg PO Q8H PRN (Reason: pain) Rx Instructions: per refill hx: last filled 01/21/23 QTY 40 for 13 days promethazine 25 mg tablet 12.5 mg PO Q6H PRN (Reason: nausea and vomiting) Rx Instructions: per refill hx: last filled 01/17/23 for QTY 90 / 22 days lithium carbonate 300 mg capsule 300 mg PO BID Rx Instructions: per refill hx: last filled 01/17/23 for QTY 60 / 30 days orphenadrine citrate 100 mg tablet extended release 100 mg PO PRN lamotrigine 200 mg tablet 200 mg PO .hs lamotrigine 25 mg tablet 25 mg PO .q am toradol 10 mg tablet 10 mg PO Q6H PRN (Reason: migraine headache) magnesium 400 mg tablet See Rx Instructions .ROUTE .COMPLEX PRN (Reason: migraine headache) Rx Instructions: PRN; diphenhydramine HCl [Benadryl] 25 mg capsule 75 mg PO PRN PRN (Reason: migraine headache) prednisone 20 mg tablet 20 mg PO BID 5 Days Qty: 10 0RF Referrals: Lamont Blair MD [Primary Care Provider] - 1 week
[2023-03-03] MEDS: METHYLPREDNISOLONE SOD SUCC PF 125 MG/2 ML VIAL IVP (10:10)
[2023-03-03 10:24] LABS: Influenza Virus A Antigen Negative; Influenza Virus B Antigen Negative; Internal Control Within Normal Limits; Respiratory Syncytial Virus Not Detected (NOT DETECTE)
[2023-03-03 10:24] LABS: Basophils Percent Auto 0.2 % (0.2-2.0); Eosinophils Absolute Auto 0.3 10^3/uL (0.0-0.7); Eosinophils Percent Auto 2.3 % (0.9-7.0); Hematocrit 35.3 % (36.0-48.0); Hemoglobin 11.7 g/dL (12.0-16.0); Immature Granulocytes Abs Auto 0.05 10^3/uL (0.00-0.03); Immature Granulocytes Pct Auto 0.4 % (0.0-0.5); Lymphocytes Absolute Auto 1.1 10^3/uL (1.2-3.8); Lymphocytes Percent Auto 9.3 % (20.5-60.0); Mean Corpuscular HGB Conc 33.1 g/dL (29.9-35.2); Mean Corpuscular Hemoglobin 28.7 pg (26.7-34.0); Mean Corpuscular Volume 86.7 fL (81.0-99.0); Mean Platelet Volume 9.6 fL (9.5-13.5); Monocytes Absolute Auto 0.6 10^3/uL (0.3-0.8); Monocytes Percent Auto 4.6 % (1.7-12.0); Neutrophils Percent Auto 83.2 % (43.0-75.0); Platelet Count 219 10^3/uL (150-450); Red Blood Count 4.07 10^6/uL (4.20-5.40); Red Cell Distribution Width 12.6 % (11.0-15.0); White Blood Count 12.1 10^3/uL (4.0-11.0)
[2023-03-03 10:25] LABS: SARS-CoV-2 Ag NEGATIVE (NEGATIVE)
[2023-03-03] MEDS: IPRATROPIUM/ALBUTEROL SULFATE 3 ML AMPUL.NEB IH ×4 (10:30→23:27)
[2023-03-03 10:45] LABS: Anion Gap 15.8; BUN Creatinine Ratio 18.3; Calcium 8.7 mg/dL (8.5-10.1); Carbon Dioxide 23.3 mmol/L (21.0-32.0); Chloride 106 mmol/L (98-107); Estimated GFR (African America >60 (>=60); Estimated GFR (Non-African Ame >60 (>=60); Glucose 91 mg/dL (74-106); Potassium 4.1 mmol/L (3.5-5.1); Sodium 141 mmol/L (136-145)
--- OUTSIDE RECORDS SUMMARY | 2023-03-03 11:58 | XMS_ITS | CCD ---
Author Name Unknown Address [address] [place] [address] Organization [facility] Care Team Providers Care Social Science Instructor Name Role Phone Maria Del Rosario Hahn (Historical) Primary Care Provide r Unavailable Sandhya EXPERIMENTAL TECHNICIAN - SOURCING ENGINEER, Angélica Pamela Primary Care Provider SANDHYA ANGÉLICA Santiago Primary Care Unavailable VIELKA CHING Attending Unavailable Sandhya EXPERIMENTAL TECHNICIAN - SOURCING ENGINEER, Angélica Pamela Primary Care Provider LUCILA MOTA [...] MANJINDER Admitting Unavailable PATRICIA WALSH Consulting Unavailable [facility] [place] Primary Care Unavailable HAY ., DR HARMAN Attending Unavailable HAY ., DR HARMAN Admitting Unavailable NEWSTEWART, NICHOLAS Consulting Unavailable UNLU, SINDY Consulting Unavailable LEONARDO ., DR GUTIERREZ Admitting Unavailable LEONARDO ., DR GUTIERREZ Consulting Unavailable [facility] Primary Care Unavailable LEONARDO ., DR GUTIERREZ Attending Unavailable KUNS, DR ANGÉLICA Santiago Primary Care Unavailable LEONARDO ., DR GUTIERREZ Admitting Unavailable LEONARDO ., DR GUTIERREZ Attending Unavailable LEONARDO ., DR GUTIERREZ Consulting Unavailable LEONARDO ., DR GUTIERREZ Admitting Unavailable LEONARDO ., DR GUTIERREZ Attending Unavailable NADERER, DR SPENSER Garcia Primary Care Unavailable [facility] Primary Care Unavailable HAY ., [...] Drug Allergy 1 Hives, Other: See Comments [facility] Flavorvanil (2 sources) carBAMazepine Drug Allergy 1 Other (See Comments) [facility] (20 sources) Cephalexin; Translations: [CEPHALEXIN] Drug Allergy 1 Hives, Rash [facility] (20 sources) Metoclopramide; Translations: [METOCLOPRAMIDE] Drug Allergy 1 Hives, Intolerance [facility] (2 sources) Propranolol Drug Allergy 1 Hives, Other (See Comments) [facility] (20 sources) Adhesive Tape-Silicones; Translations: [ADHESIVE TAPE-SILICONES] Drug Allergy 2 Rash [facility] (20 sources) Dextromethorphan / Pyrilamine; Translations: [PYRILAMINE-DEXTROME THORPHAN] Drug Allergy 2 [facility] Work Phone: (20 sources) vortioxetine; Translations: [VORTIOXETINE] [facility] Work Phone: (17 sources) Dihydroergotamine; Translations: [DIHYDROERGOTAMINE] Drug Allergy 3 Intolerance [facility] (1 source) Azithromycin Drug Allergy [facility] (1 source) bee venom Drug allergy (disorder) [facility] (1 source) Cephalexin Drug Allergy [facility] (1 source) Desonide Drug Allergy [facility] (1 source) Iothalamate Drug Allergy [facility] (1 source) Propranolol Drug Allergy 1 [facility] (1 source) [place] DM Drug allergy (disorder) 2 [facility] (6 sources) levETIRAcetam; Translations: [LEVETIRACETAM] Drug Allergy 3 Itching [facility] Work Phone: Medications Current Medications Medication [...] Start: 10-21-2021 take 2 tablets by mo [facility] once daily lamoTRIgine (LAMICTAL) 25 MG [...] Comment on above: Take 1 tablet by [facility]. 2.5 mg at onset [...] a day as needed. polyethylene glycol [phone] mg powder for oral solution (1 source) [...] (ZOMIG) 5 mg nasal spray Use 1 [place] in the nose as needed at onset of migraine headache. If symptoms persist or return, may repeat dose in other nostril after 2 hours. Maximum of 2 sprays per 24 hours 10 Each 2 06/24/2022 Active Start: 06-24-2022 take 1 spray(s) nasa l route every twenty-four hours as needed ZOLMitriptan (ZOMIG) 5 mg nasal spray Use 1 [place] in the nose as needed. SPRAY IN 1 NOSTRIL AT ONSET OF MIGRAINE HEADACHE. If symptoms persist or return, may repeat dose after 2 hours. Maximum: 5 mg/dose; 10 mg per 24 hours 10 Each 2 06/24/2022 Active Comment on above: Use 1 [place] in the n ose as needed. SPRAY IN 1 NOSTRIL AT ONSET OF MIGRAINE HEADACHE. If symptoms persist or return, may repeat dose after 2 hours. Maximum: 5 mg/dose; 10 mg per 24 hours Use 1 [place] in the n ose as needed at [...] 08-14-2021 Episodic Other aftercare (1 source) Other usp (current) drug therapy; Translations: [OTH [employer] SERV[employer] SALES REPRESENTATIVES CURRENT DRUG THERAPY] Onset: 06-22-2022 Episodic Other [...] Facility Veronica 12-13-2022 BASHIR Telephone ([facility]) ---- CONI NICHOLSON ([id number]) 1995 F Date Time Provider Department 12/13/22 LOGAN BARTH [facility] During your visit today, we recorded [...] Date Reviewed: 12/12/2022 Reviewed by: Logan Barth APRN.SOURCING ENGINEER - Fully Assessed Prescriptions as of 12/13/2022 [...] (ZOMIG) 5 mg nasal spray Use 1 [place] in the nose as needed at onset [...] Encounter Status:Closed by JANNETTE MCLEOD [facility] CONI [facility]ICHOL[facility] ([id number]) 1995 F Date Time Provider Department 12/13/22 LOGAN BARTH N[facility]is During your visit today, we recorded the following information about you: Mendoza Dooley 12/13/2022 2:27 PM Signed Called patient to schedule for 3 days of Non DHE IV infusions. She started she was currently driving and would call back to schedule Logan Barth APRN.SOURCING ENGINEER P Headache Infusion Scheduling Pool; P C21 [...] Date Reviewed: 12/12/2022 Reviewed by: Logan Barth APRN.SOURCING ENGINEER - Fully Assessed Reason for Visit: Infusion [...] (ZOMIG) 5 mg nasal spray Use 1 [place] in the nose as needed at onset [...] Encounter Status:Closed by MENDOZA DOOLEY on 12/13/22 [facility] BASHIR [facility] (NIQ) ---- CONI NICHOLSON ([id number]) 1995 F Date Time Provider Department 11/10/22 [...] get infusions scheduled. Number to return call [phone] Okay to leave a message ? Yes Last office visit 10/12/22 with [email or web address] Next office visit Not scheduled. Thank you calling [facility]. You will receive a return call within [...] Date Reviewed: 10/12/2022 Reviewed by: Suzan Driver APRN.SOURCING ENGINEER - Fully Assessed Reason for Visit: Infusion [...] (ZOMIG) 5 mg nasal spray Use 1 [place] in the nose as needed at onset [...] Encounter Status:Closed by MENDOZA DOOLEY on 11/10/22 [facility] ARMANIOVshira 10-12-2022 CNOV Office Visit ([facility]) ---- CONI NICHOLSON ([id number]) 1995 F Date Time Provider Department 10/12/22 10:15 AM SUZAN DRIVER [facility] During your visit today, we recorded the following information about you: Pulse Blood pressure Weight Height 91/minute 133/63 108.8 kg 1.549 m Suzan Driver APRN.SOURCING ENGINEER 10/12/2022 11:03 AM Addendum AFTER VISIT CARE [...] the effectiveness of your pain relief. https://my.[facility].org/health/ treatments/8312-bot aqdomz-xejhz-jtmdho ions Download the Chronic Migraine Anatomy Andrzej (by [employer]) to learn more about botox. -HYDRATION Hydration [...] see if you qualify for reimbursement. https://www.botoxsa NeuroVistagspromy6sense.com/ Return in 3 months for your next [...] machinery while taking this medication. Suzan Driver APRN.SOURCING ENGINEER 10/12/2022 11:04 AM Signed New Onabotulinum Toxin [...] 0 PHQ-9 06/24/2022more content not included)... Normal [facility] CNPNon 09-29-2022 CNPN Telephone ([facility]) ---- CONI NICHOLSON ([id number]) 1995 F Date Time Provider Department 09/29/22 ANGELY COTTON [facility] During your visit today, we recorded the following information about you: Angely Cotton RN 09/29/2022 11:55 AM Signed [facility] received prescription(s) for Zomig 5MG nasal spray . Benefits investigation was conducted, indicating that a prior authorization is required. PA was initiated and pending review through [employer]. All pertinent clinical information was submitted to insurance. CMM Cohen: [id number] Ordering Provider: Logan Barth APRN.SOURCING ENGINEER Angely Cotton RN [facility] P: , F: Angely Cotton RN 10/07/2022 3:17 PM Signed Ambulatory Pharmacy Prior Authorization Note Provider Intervention Required?: No- Pharmacy completed on your behalf. Rx Plan: Medicaid MCO ([facility]) Drug: Zomig 5MG nasal spray Cover My Meds Cohen: [id number] Determination: Approved Prior Authorization/Case #: n/a Prior [...] refills. Prescriptions will now be processed through [facility] for determination of next steps. For questions relating to this submission, please contact [facility] at [phone] Allergies As of Date: 09/29/2022 Noted Allergy [...] Date Reviewed: 09/12/2022 Reviewed by: Logan Barth APRN.SOURCING ENGINEER - Fully Assessed Reason for Visit: Insurance Authorization [[id number]] Cmt: Zomig 5MG nasal spray Prescriptions as [...] (ZOMIG) 5 mg nasal spray Use 1 [place] in the nose as needed at onset [...] Encounter Status:Closed by ANGELY COTTON on 10/07/22 [facility] 09-13-2022 [facility] Telephone ([facility]MNS2) ---- CONI NICHOLSON ([id number]) 1995 F Date Time Provider Department 09/13/22 LOGAN BARTH [facility] During your visit today, we recorded [...] Date Reviewed: 09/12/2022 Reviewed by: Logan Barth APRN.SOURCING ENGINEER - Fully Assessed Reason for Visit: Referral [...] (ZOMIG) 5 mg nasal spray Use 1 [place] in the nose as needed. SPRAY IN [...] Encounter Status:Closed by ENEDINA TSAI on 09/13/22 [facility] CNCOon 09-08-2022 CNCO Letter Text [facility] CNPNon [facility]-20[facility] CONI NICHOLSON ([id number]) 1995 F Date Time Provider Department 07/05/22 ANGELY COTTON [facility] During your visit today, we recorded the following information about you: Angely Cotton RN 07/05/2022 1:18 PM Signed [facility] received prescription(s) for Emgality 120MG/ML auto-injectors (migraine) . Benefits investigation was conducted, indicating that a prior authorization is required. PA was initiated and pending review through [employer]. All pertinent clinical information was submitted to insurance. CMM Cohen: [id number] Ordering Provider: GABBI Johnston Alisha, RN [facility] P: , F: Angely Cotton RN 07/11/2022 12:55 PM Signed Ambulatory Pharmacy Prior Authorization Note Provider Intervention Required?: No- Pharmacy completed on your behalf. Rx Plan: Medicaid MCO ([facility]) Drug: Emgality 120MG/ML auto-injectors (migraine) Cover My Meds Cohen: [id number] Determination: Denied PA Denied because: Step therapy requirement Prior Authorization/Case #: n/a Prior Authorization Expiration: n/a Time to PA Submission in CMM: 15 min Time to PA Determination in CMM: 1 day Additional Information: Full letter scanned into chart for reference, please review letter for full details. No further action by [facility] for now and existing order to be profiled. Angely Cotton RN [facility] P: , F: For questions relating to this submission, please contact [facility] at [phone] Logan Barth APRN.CNP 07/20/2022 12:44 PM Signed [...] Recall letter placed. Uploaded to chart via [employer]. PLEASE SEND NEW RX TO PHARMACY FOR [...] Date Reviewed: 06/24/2022 Reviewed by: Logan Barth APRN.SOURCING ENGINEER - Fully Assessed Reason for Visit: Insurance Authorization [[id number]] Cmt: Emgality 120MG/ML auto-injectors (migraine) Order(s):Order #: [id number] Order #: [id number] Prescriptions as of 09/27/2022 - galcanezumab-gnlm (EMGALITY [...] - prometh (more content not included)... [facility] ---- CONI NICHOLSON ([id number]) 1995 F Date Time Provider Department 07/04/22 LOGAN BARTH [facility] During your visit today, we recorded the following information about you: Shirlene Leon 07/04/2022 4:01 PM Signed Ambulatory Pharmacy Prior Authorization Note Provider Intervention Required?: Yes- [place] Medicaid (PCN: [id number]) requires prior authorization to be submitted by the provider. Prior authorization forms required for submission can be found at: [email or web address].medica id.[place].gov/[email or web address] [email or web address]/[email or web address]/ Forms Drug: EMGALITY PEN 120 mg/mL pen Additional Information: n/a URGENT! Please select Urgent when requesting prior authorization using either [employer] or [facility] sites. This should result in a 24 hour turnaround from [facility]. Please send electronic fax using [employer] or [facility] or manually fax completed paperwork to [phone] with ATTN: PA Help Desk. Any questions, please contact us at [facility] [phone] Enedina Tsai RN 07/27/2022 8:32 AM Addendum Submitted PA via [employer]. Margaret Nicholson (Cohen: [id number]) Emgality 120MG/ML auto-injectors (migraine) Form: [place] Managed Medicaid Purchasing [employer] Standard Pharmacy Prior Authorization Form Your PA has been faxed to the [facility] as a paper copy. Please contact the [facility] directly if you haven't received a determination [...] Date Reviewed: 06/24/2022 Reviewed by: Logan Barth APRN.SOURCING ENGINEER - Fully Assessed Prescriptions as of 02/28/2023 [...] (ZOMIG) 5 mg nasal spray Use 1 [place] in the nose as needed at onset [...] Encounter Status:Closed by SHIRLENE LEON on 02/28/23 [facility] Veronica 06-27-2022 BASHIR Telephone (NIQ) ---- MARGARET NICHOLSON ([id number]) 1995 F Date Time Provider Department 06/27/22 [...] Date Reviewed: 06/24/2022 Reviewed by: Logan Barth APRN.SOURCING ENGINEER - Fully Assessed Reason for Visit: Appointment [...] (ZOMIG) 5 mg nasal spray Use 1 [place] in the nose as needed. SPRAY IN [...] Status:Closed by MENDOZA DOOLEY on 06/27/22 Normal [facility] BLOOD GASES BTYon 06-20-2022 02 MODE ROOM AIR Normal [facility] Comment on above: Performed By: #### B MP #### [facility] [address] [place] [address] Dr. Ibis BETH TEST Positive Normal [facility] Comment on above: Performed By: #### B MP #### [facility] [address] [address] [address] Ibis Jimenez Base excess Calc (Bld) [Moles/Vol] -1.6000 mmol/L Normal -2.0-2.[address] [facility] Comment on above: Performed By: #### B MP #### [facility] [address] [address] [address] Ibis Jimenez BIPAP PRESSURE Normal [facility] Comment on above: Performed By: #### B MP #### [facility] [address] [address] [address] Ibis Jimenez CPAP [facility] Comment on above: Performed By: #### B MP #### [facility] [address] [place] [address] Dr. Ibis Jimenez FIO2 [facility] Comment on above: Performed By: #### B MP #### [facility] [address] [address] [address] Ibis Jimenez HCO3 (Bld) [Moles/Vol] 23.8 mmol/L Normal 22.0-26.0 [facility] Comment on above: Performed By: #### B MP #### [facility] [address] [place] [address] Dr. Ibis Jimenez LPM [facility] Comment on above: Performed By: #### B MP #### [facility] [address] [place] [address] Dr. Ibis Jimenez MINUTE VOLUME Normal [facility] Comment on above: Performed By: #### B MP #### [facility] [address] [place] [address] Dr. Ibis Jimenez Oxygen (Bld) [Partial pressure] 75.5 mm[Hg] Critically low 80.0-100.[address] [facility] Comment on above: Performed By: #### B MP #### [facility] [address] [place] [address] Dr. Ibis Jimenez Oxygen saturation in Blood 95.8 % Normal 95.0-100.[address] [facility] Comment on above: Performed By: #### B MP #### [facility] [address] [address] [address] Ibis Jimenez PCO2 41.8 mmHg Normal 35.0-45.[address] [facility] Comment on above: Performed By: #### B MP #### [facility] [address] [address] [address] Ibis Jimenez PEEP [facility] Comment on above: Performed By: #### B MP #### [facility] [address] [address] [address] Ibis Jimenez pH (Bld) 7.363 [pH] Normal 7.350-7.[address] [facility] Comment on above: Performed By: #### B MP #### [facility] [address] [place] [address] Dr. Ibis Jimenez [facility] Comment on above: Performed By: #### B MP #### [facility] [address] [address] [address] Ibis Jimenez [facility] Comment on above: Performed By: #### B MP #### [facility] [address] [address] [address] Ibis Jimenez PUNCTURE SITE LR [facility] Comment on above: Performed By: #### B MP #### [facility] [address] [place] [address] Dr. Ibis Jimenez RATE [facility] Comment on above: Performed By: #### B MP #### [facility] [address] [address] [address] Ibis Jimenez VENT MODE [facility] Comment on above: Performed By: #### B MP #### [facility] [address] [address] [address] Ibis Jimenez [facility] Comment on above: Performed By: #### B MP #### [facility] [address] [place] [address] Dr. Ibis Jimenez CBC AUTO DIFFon 06-20-2022 BASO # 0.0 103/ul Normal 0.0-0.[address] [facility] Comment on above: Performed By: #### A CET, SALYC #### [facility] [address] [place] [address] Dr. Ibis Jimenez Basophils/100 WBC (Bld) 0.5 % Normal 0.2-2.0 [facility] Comment on above: Performed By: #### A CET, SALYC #### [facility] [address] [place] [address] Dr. Ibis Jimenez EO # 0.3 103/ul Normal 0.0-0.[address] [facility] Comment on above: Performed By: #### A CET, SALYC #### [facility] [address] [place] [address] Dr. Ibis Jimenez Eosinophils/100 WBC (Bld) 4.2 % Normal 0.9-7.[address] [facility] Comment on above: Performed By: #### A CET, SALYC #### [facility] [address] [place] [address] Dr. Ibis Jimenez Erythrocyte distribution width (RBC) [Ratio] 13.2 % Normal 11.0-15.[address] [facility] Comment on above: Performed By: #### A CET, SALYC #### [facility] [address] [place] [address] Dr. Ibis Jimenez Hematocrit (Bld) [Volume fraction] 36.5 % Normal 36.0-48.[address] [facility] Comment on above: Performed By: #### A CET, SALYC #### [facility] [address] [place] [address] Dr. Ibis Jimenez Hemoglobin (Bld) [Mass/Vol] 11.7 g/dL Critically low 12.0-16.[address] [facility] Comment on above: Performed By: #### A CET, SALYC #### [facility] [address] [place] [address] Dr. Ibis Jimenez IG # 0.05 10e3/ul Critically high 0.00-0.03 [facility] Comment on above: Performed By: #### A CET, SALYC #### [facility] [address] [place] [address] Dr. Ibis Jimenez IG % 0.8 % Critically high 0.0-0.5 [facility] Comment on above: Performed By: #### A CET, SALYC #### [facility] [address] [place] [address] Dr. Ibis Jimenez LYMPH # 1.7 103/ul Normal 1.2-3.[address] [facility] Comment on above: Performed By: #### A CET, SALYC #### [facility] [address] [place] [address] Dr. Ibis Jimenez Lymphocytes/100 WBC (Bld) 26.9 % Normal 20.5-60.[address] [facility] Comment on above: Performed By: #### A CET, SALYC #### [facility] [address] [place] [address] Dr. Ibis Jimenez MANUAL DIFF REQ NO Normal [facility] Comment on above: Performed By: #### A CET, SALYC #### [facility] [address] [place] [address] Dr. Ibis Jimenez MCH (RBC) [Entitic mass] 28.7 pg Normal 26.7-34.[address] [facility] Comment on above: Performed By: #### A CET, SALYC #### [facility] [address] [place] [address] Dr. Ibis Jimenez MCHC (RBC) [Mass/Vol] 32.1 g/dL Normal 29.9-35.[address] [facility] Comment on above: Performed By: #### A CET, SALYC #### [facility] [address] [place] [address] Dr. Ibis Jimenez MCV (RBC) [Entitic vol] 89.7 fL Normal 81.0-99.0 [facility] Comment on above: Performed By: #### A CET, SALYC #### [facility] [address] [place] [address] Dr. Ibis Jimenez MONO # 0.6 103/ul Normal 0.3-0.[address] [facility] Comment on above: Performed By: #### A CET, SALYC #### [facility] [address] [address] [address] Ibis Jimenez Monocytes/100 WBC (Bld) 8.9 % Normal 1.7-12.0 [facility] Comment on above: Performed By: #### A CET, SALYC #### [facility] [address] [place] [address] Dr. Ibis Jimenez NEUT # 3.8 103/ul Normal 1.4-6.[address] [facility] Comment on above: Performed By: #### A CET, SALYC #### [facility] [address] [place] [address] Dr. Ibis Jimenez Neutrophils/100 WBC (Bld) 58.7 % Normal 43.0-75.[address] [facility] Comment on above: Performed By: #### A CET, SALYC #### [facility] [address] [place] [address] Dr. Ibis Jimenez Platelet mean volume (Bld) [Entitic vol] 9.3 fL Critically low 9.5-13.[address] [facility] Comment on above: Performed By: #### A CET, SALYC #### [facility] [address] [place] [address] Dr. Ibis Jimenez PLT 188 103/ul Normal 150-[address] [facility] Comment on above: Performed By: #### A CET, SALYC #### [facility] [address] [place] [address] Dr. Ibis Jimenez RBC 4.07 106/ul Critically low 4.20-5.40 [facility] Comment on above: Performed By: #### A CET, SALYC #### [facility] [address] [place] [address] Dr. Ibis Jimenez WBC 6.4 103/ul Normal 4.0-11.[address] [facility] Comment on above: Performed By: #### A CET, SALYC #### [facility] [address] [place] [address] Dr. Ibis Jimenez DRUG SCREEN RAPID (URINE)on 06-20-2022 AMP Negative Normal NEGATIVE [facility] Comment on above: Performed By: #### B MP #### [facility] [address] [place] [address] Dr. Ibis Jimenez BAR Positive Abnormal NEGATIVE [facility] Comment on above: Performed By: #### B MP #### [facility] [address] [place] [address] Dr. Ibis Jimenez BUP Negative Normal NEGATIVE [facility] Comment on above: Performed By: #### B MP #### [facility] [address] [place] [address] Dr. Ibis Jimenez BZO Positive Abnormal NEGATIVE [facility] Comment on above: Performed By: #### B MP #### [facility] [address] [place] [address] Dr. Ibis Jimenez SEMAJ Negative Normal NEGATIVE [facility] Comment on above: Performed By: #### B MP #### [facility] [address] [place] [address] Dr. Ibis Jimenez CUT-OFFS SEE BELOW Normal [facility] Comment on above: Result Comment: AMP [...] ng/mL Performed By: #### B MP #### [facility] [address] [place] [address] Dr. Ibis Jimenez DRUG CUT HEADER DRUG CLASS TEST SYSTEM CUT-OFF CONCENTRATIONS ARE FOLLOWS: Normal [facility] Comment on above: Performed By: #### B MP #### [facility] [address] [place] [address] Dr. Ibis Jimenez mAMP Negative Normal NEGATIVE [facility] Comment on above: Performed By: #### B MP #### [facility] [address] [place] [address] Dr. Ibis Jimenez MTD Negative Normal NEGATIVE [facility] Comment on above: Performed By: #### B MP #### [facility] [address] [address] [address] Ibis Jimenez OPI Negative Normal NEGATIVE [facility] Comment on above: Performed By: #### B MP #### [facility] [address] [place] [address] Dr. Ibis Jimenez OXY Negative Normal NEGATIVE [facility] Comment on above: Performed By: #### B MP #### [facility] [address] [place] [address] Dr. Ibis Jimenez PCP Negative Normal NEGATIVE [facility] Comment on above: Performed By: #### B MP #### [facility] [address] [place] [address] Dr. Ibis Jimenez PPX Negative Normal NEGATIVE [facility] Comment on above: Performed By: #### B MP #### [facility] [address] [place] [address] Dr. Ibis Jimenez TCA Positive Abnormal NEGATIVE [facility] Comment on above: Performed By: #### B MP #### [facility] [address] [place] [address] Dr. Ibis Jimenez THC Positive Abnormal NEGATIVE [facility] Comment on above: Performed By: #### B MP #### [facility] [address] [place] [address] Dr. Ibis Jimenez ER URINE PROFILEon 3 Bilirubin Ql (U) Negative Normal NEGATIVE [facility] Comment on above: Performed By: #### A CET, SALYC #### [facility] [address] [place] [address] Dr. Ibis Jimenez Clarity (U) CLEAR Normal CLEAR [facility] Comment on above: Performed By: #### A CET, SALYC #### [facility] [address] [place] [address] Dr. Ibis Jimenez Color (U) YELLOW Normal YELLOW [facility] Comment on above: Performed By: #### A CET, SALYC #### [facility] [address] [place] [address] Dr. Ibis Garcia micrscopic examination will be performed if indicated. Normal [facility] Comment on above: Performed By: #### A CET, SALYC #### [facility] [address] [place] [address] Dr. Ibis Jimenez Glucose Ql (U) Negative Normal NEGATIVE [facility] Comment on above: Performed By: #### A CET, SALYC #### [facility] [address] [place] [address] Dr. Ibis Jimenez Hemoglobin Ql (U) Negative Normal NEGATIVE [facility] Comment on above: Performed By: #### A CET, SALYC #### [facility] [address] [place] [address] Dr. Ibis Jimenez Ketones Ql (U) Negative Normal NEGATIVE [facility] Comment on above: Performed By: #### A CET, SALYC #### [facility] [address] [place] [address] Dr. Ibis Jimenez LEUKOCYTES Negative Normal NEGATIVE [facility] Comment on above: Performed By: #### A CET, SALYC #### [facility] [address] [place] [address] Dr. Ibis Jimenez Nitrite Ql (U) Negative Normal NEGATIVE [facility] Comment on above: Performed By: #### A CET, SALYC #### [facility] [address] [place] [address] Dr. Ibis Jimenez pH (U) 5.0 [pH] Normal 5-[address] [facility] Comment on above: Performed By: #### A CET, SALYC #### [facility] [address] [place] [address] Dr. Ibis Jimenez SPEC GRAVITY >=1.030 Abnormal 1.005-<=1.[address] [facility] Comment on above: Performed By: #### A CET, SALYC #### [facility] [address] [place] [address] Dr. Ibis Jimenez UA PROTEIN Negative Normal NEGATIVE/ TRACE [facility] Comment on above: Performed By: #### A CET, SALYC #### [facility] [address] [address] [address] Ibis Jimenez UR MICRO IND NOT INDICATED Normal [facility] Comment on above: Performed By: #### A CET, SALYC #### [facility] [address] [address] [address] Ibis Jimenez Urobilinogen Qn (U) 0.2 {Dinorah'U}/dL Normal 0.2 - 1. [address] [facility] Comment on above: Performed By: #### A CET, SALYC #### [facility] [address] [address] [address] Ibis Jimenez PROF CHEM 8 (BAS METB)on Anion gap [Moles/Vol] 13.1 mmol/L Normal [facility] Comment on above: Performed By: #### M DAVID #### [facility] [address] [address] [address] Ibis Jimenez Calcium [Mass/Vol] 8.3 mg/dL Critically low 8.5-10.[address] [facility] Comment on above: Performed By: #### M DAVID #### [facility] [address] [address] [address] Ibis Jimenez Chloride [Moles/Vol] 109 mmol/L Critically high 98-[address] [facility] Comment on above: Performed By: #### M DAVID #### [facility] [address] [address] [address] Ibis Jimenez CO2 [Moles/Vol] 25.7 mmol/L Normal 21.0-32.0 [facility] Comment on above: Performed By: #### M DAVID #### [facility] [address] [address] [address] Ibis Jimenez Creatinine [Mass/Vol] 0.82 mg/dL Normal 0.55-1.[address] [facility] Comment on above: Performed By: #### M DAVID #### [facility] [address] [address] [address] Ibis Jimenez EGFR-AF CITIZEN OF [place] >60 Normal >=60 [facility] Comment on above: Performed By: #### M DAVID #### [facility] [address] [address] [address] Ibis Jimenez EGFR-NON AF CITIZEN OF [place] >60 Normal >=[address] [facility] Comment on above: Performed By: #### M DAVID #### [facility] [address] [address] [address] Ibis Jimenez Glucose [Mass/Vol] 95 mg/dL Normal 74-106 [facility] Comment on above: Performed By: #### M DAVID #### [facility] [address] [address] [address] Ibis Jimenez Potassium [Moles/Vol] 3.8 mmol/L Normal 3.5-5.[address] [facility] Comment on above: Performed By: #### M DAVID #### [facility] [address] [place] [address] Dr. Ibis Jimenez Sodium [Moles/Vol] 144 mmol/L Normal 136-145 [facility] Comment on above: Performed By: #### M DAVID #### [facility] [address] [address] [address] Ibis Jimenez Urea nitrogen [Mass/Vol] 16.0 mg/dL Normal 7.0-18.[address] [facility] Comment on above: Performed By: #### M DAVID #### [facility] [address] [place] [address] Dr. Ibis Jimenez Urea nitrogen/Creatinine [Mass ratio] 19.5 mg/mg Normal [facility] Comment on above: Performed By: #### M DAVID #### [facility] [address] [address] [address] Ibis Jimenez ACETAMINOPHENon 06-19-2022 Acetaminophen [Mass/Vol] ug/mL Critically low 10.0-30.[address] [facility] Comment on above: Performed By: #### A CET, SALYC #### [facility] [address] [address] [address] Ibis Jimenez DRUG SCREEN RAPID (URINE)on 06-19-2022 AMP Negative Normal NEGATIVE [facility] Comment on above: Performed By: #### M DAVID #### [facility] [address] [address] [address] Ibis Jimenez BAR Positive Abnormal NEGATIVE [facility] Comment on above: Performed By: #### M DAVID #### [facility] [address] [place] [address] Dr. Ibis Jimenez BUP Negative Normal NEGATIVE [facility] Comment on above: Performed By: #### M DAVID #### [facility] [address] [place] [address] Dr. Ibis Jimenez BZO Positive Abnormal NEGATIVE [facility] Comment on above: Performed By: #### M DAVDI #### [facility] [address] [place] [address] Dr. Ibis Jimenez SEMAJ Negative Normal NEGATIVE [facility] Comment on above: Performed By: #### M DAVID #### [facility] [address] [place] [address] Dr. Ibis Jimenez CUT-OFFS SEE BELOW Normal [facility] Comment on above: Result Comment: AMP [...] ng/mL Performed By: #### M DAVID #### [facility] [address] [place] [address] Dr. Ibis Jimenez DRUG CUT HEADER DRUG CLASS TEST SYSTEM CUT-OFF CONCENTRATIONS ARE FOLLOWS: Normal [facility] Comment on above: Performed By: #### M DAVID #### [facility] [address] [place] [address] Dr. Ibis Jimenez mAMP Negative Normal NEGATIVE [facility] Comment on above: Performed By: #### M DAVID #### [facility] [address] [address] [address] Ibis Jimenez MTD Negative Normal NEGATIVE [facility] Comment on above: Performed By: #### M DAVID #### [facility] [address] [address] [address] Ibis Jimenez OPI Positive Abnormal NEGATIVE [facility] Comment on above: Performed By: #### M DAVID #### [facility] [address] [address] [address] Ibis Jimenez OXY Negative Normal NEGATIVE [facility] Comment on above: Performed By: #### M DAVID #### [facility] [address] [address] [address] Ibis Jimenez PCP Negative Normal NEGATIVE [facility] Comment on above: Performed By: #### M DAVID #### [facility] [address] [place] [address] Dr. Ibis Jimenez PPX Negative Normal NEGATIVE [facility] Comment on above: Performed By: #### M DAVID #### [facility] [address] [address] [address] Ibis Jimenez TCA Negative Normal NEGATIVE [facility] Comment on above: Performed By: #### M DAVID #### [facility] [address] [address] [address] Ibis Jimenez THC Positive Abnormal NEGATIVE [facility] Comment on above: Performed By: #### M DAVID #### [facility] [address] [address] [address] Ibis Jimenez ER URINE PROFILEon 3 Bilirubin Ql (U) Negative Normal NEGATIVE [facility] Comment on above: Performed By: #### M DAVID #### [facility] [address] [place] [address] Dr. Ibis Jimenez Clarity (U) CLEAR Normal CLEAR [facility] Comment on above: Performed By: #### M DAVID #### [facility] [address] [place] [address] Dr. Ibis Jimenez Color (U) YELLOW Normal YELLOW [facility] Comment on above: Performed By: #### M DAVID #### [facility] [address] [address] [address] Ibis RODRIGUEZ A micrscopic examination will be performed if indicated. Normal [facility] Comment on above: Performed By: #### M DAVID #### [facility] [address] [address] [address] Ibis Jimenez Glucose Ql (U) Negative Normal NEGATIVE [facility] Comment on above: Performed By: #### M DAVID #### [facility] [address] [address] [address] Ibis Jimenez Hemoglobin Ql (U) TRACE-INTACT Abnormal NEGATIVE [facility] Comment on above: Performed By: #### M DAVID #### [facility] [address] [address] [address] Ibis Jimenez Ketones Ql (U) Negative Normal NEGATIVE [facility] Comment on above: Performed By: #### M DAVID #### [facility] [address] [address] [address] Ibis Jimenez LEUKOCYTES Negative Normal NEGATIVE [facility] Comment on above: Performed By: #### M DAVID #### [facility] [address] [address] [address] Ibis Jimenez Nitrite Ql (U) Negative Normal NEGATIVE [facility] Comment on above: Performed By: #### M DAVID #### [facility] [address] [address] [address] Ibis Jmienez pH (U) 6.0 [pH] Normal 5-[address] [facility] Comment on above: Performed By: #### M DAVID #### [facility] [address] [address] [address] Ibis Jimenez Protein (U) [Mass/Vol] 30 mg/dL Abnormal NEGAT ADALGISA/ TRACE [facility] Comment on above: Performed By: #### M DAVID #### [facility] [address] [place] [address] Dr. Ibis Jimenez SPEC GRAVITY 1.025 Normal 1.005-<=1.[address] [facility] Comment on above: Performed By: #### M DAVID #### [facility] [address] [address] [address] Ibis Jimenez UR MICRO IND INDICATED Normal [facility] Comment on above: Performed By: #### M DAVID #### [facility] [address] [address] [address] Ibis Jimenez Urobilinogen Qn (U) 0.2 {Dinorah'U}/dL Normal 0.2 - 1. [address] [facility] Comment on above: Performed By: #### M DAVID #### [facility] [address] [address] [address] Ibis Jimenez ETHANOL (BLD ALC)on 06-20-19 ALC NOTE NOTE: 80 mg/dl is the legal limit for a blood alcohol level Normal [facility] Comment on above: Performed By: #### A MM #### [facility] [address] [place] [address] Dr. Ibis Jimenez Ethanol [Mass/Vol] mg/dL Normal [facility] Comment on above: Performed By: #### A MM #### [facility] [address] [place] [address] Dr. Ibis Jimenez POINT OF CARE GLUCOSEon 05-23 Glucose [Mass/Vol] 88 mg/dL Normal 74-106 [facility] Comment on above: Performed By: #### C VDTBH #### [facility] [address] [place] [address] Dr. Ibis Jimenez URon 06-19-2022 , QUAL Negative Normal NEGATIVE [facility] Comment on above: Performed By: #### M DAVID #### [facility] [address] [address] [address] Ibis Jimenez PROF CHEM 8 (BAS METB)on Anion gap [Moles/Vol] 12.6 mmol/L Normal [facility] Comment on above: Performed By: #### A MM #### [facility] [address] [place] [address] Dr. Ibis Jimenez Calcium [Mass/Vol] 8.4 mg/dL Critically low 8.5-10.1 [facility] Comment on above: Performed By: #### A MM #### [facility] [address] [place] [address] Dr. Ibis Jimenez Chloride [Moles/Vol] 107 mmol/L Normal 98-[address] [facility] Comment on above: Performed By: #### A MM #### [facility] [address] [place] [address] Dr. Ibis Jimenez CO2 [Moles/Vol] 22.5 mmol/L Normal 21.0-32.0 [facility] Comment on above: Performed By: #### A MM #### [facility] [address] [place] [address] Dr. Ibis Jimenez Creatinine [Mass/Vol] 0.82 mg/dL Normal 0.55-1.[address] [facility] Comment on above: Performed By: #### A MM #### [facility] [address] [place] [address] Dr. Ibis Jimenez EGFR-AF CITIZEN OF [place] >60 Normal >=60 [facility] Comment on above: Performed By: #### A MM #### [facility] [address] [place] [address] Dr. Ibis Jimenez EGFR-NON AF CITIZEN OF [place] >60 Normal >=[address] [facility] Comment on above: Performed By: #### A MM #### [facility] [address] [place] [address] Dr. Ibis Jimenez Glucose [Mass/Vol] 87 mg/dL Normal 74-106 [facility] Comment on above: Performed By: #### A MM #### [facility] [address] [place] [address] Dr. Ibis Jimenez Potassium [Moles/Vol] 4.1 mmol/L Normal 3.5-5.[address] [facility] Comment on above: Performed By: #### A MM #### [facility] [address] [place] [address] Dr. Ibis Jimenez Sodium [Moles/Vol] 138 mmol/L Normal 136-145 [facility] Comment on above: Performed By: #### A MM #### [facility] [address] [address] [address] Ibis Jimenez Urea nitrogen [Mass/Vol] 22.0 mg/dL Critically high 7.0-18.0 [facility] Comment on above: Performed By: #### A MM #### [facility] [address] [place] [address] Dr. Ibis Jimenez Urea nitrogen/Creatinine [Mass ratio] 26.8 mg/mg Normal [facility] Comment on above: Performed By: #### A MM #### [facility] [address] [place] [address] Dr. Ibis Jimenez SALICYLATEon 06-19-2022 SALICYLATE <2.8 Normal <=19.9 [facility] Comment on above: Performed By: #### A CET, SALYC #### [facility] [address] [place] [address] Dr. Ibis Jimenez URINE MICROSCOPIC ONLYon BACTERIA NONE SEEN Normal NONE SEEN [facility] Comment on above: Performed By: #### M DAVID #### [facility] [address] [place] [address] Dr. Ibis Jimenez Bacteria identified Cx Nom (U) NOT INDICATED Normal [facility] Comment on above: Performed By: #### M DAVID #### [facility] [address] [place] [address] Dr. Ibis Jimenez CAST SEEN Abnormal NONE SEEN [facility] Comment on above: Performed By: #### M DAVID #### [facility] [address] [place] [address] Dr. Ibis Jimenez Crystals LM Nom (Urine sed) NONE SEEN Normal NONE SEEN [facility] Comment on above: Performed By: #### M DAVID #### [facility] [address] [place] [address] Dr. Ibis Jimenez Epithelial cells LM Ql (Urine sed) MODERATE Abnormal NONE SEEN /RARE [facility] Comment on above: Performed By: #### M DAVID #### [facility] [address] [place] [address] Dr. Ibis Jimenez HYALINE CAST FEW Normal [facility] Comment on above: Performed By: #### M DAVID #### [facility] [address] [address] [address] Ibis Jimenez MUCOUS NONE SEEN Normal NONE SEEN [facility] Comment on above: Performed By: #### M DAVID #### [facility] [address] [place] [address] Dr. Ibis Jimenez RBC 2-5 Abnormal 0-[address] [facility] Comment on above: Performed By: #### M DAVID #### [facility] [address] [address] [address] Ibis Jimenez WBC NONE SEEN Normal NONE SEEN [facility] Comment on above: Performed By: #### M DAVID #### [facility] [address] [place] [address] Dr. Ibis Jimenez CBC AUTO DIFFon 06-11-2022 BASO # 0.0 103/ul Normal 0.0-0.[address] [facility] Comment on above: Performed By: #### C VDTBH #### [facility] [address] [place] [address] Dr. Ibis Jimenez Basophils/100 WBC (Bld) 0.3 % Normal 0.2-2.0 [facility] Comment on above: Performed By: #### C VDTBH #### [facility] [address] [place] [address] Dr. Ibis Jimenez EO # 0.0 103/ul Normal 0.0-0.[address] [facility] Comment on above: Performed By: #### C VDTBH #### [facility] [address] [place] [address] Dr. Ibis Jimenez Eosinophils/100 WBC (Bld) 0.1 % Critically low 0.9-7.[address] [facility] Comment on above: Performed By: #### C VDTBH #### [facility] [address] [place] [address] Dr. Ibis Jimenez Erythrocyte distribution width (RBC) [Ratio] 13.2 % Normal 11.0-15.[address] [facility] Comment on above: Performed By: #### C VDTBH #### [facility] [address] [place] [address] Dr. Ibis Jimenez Hematocrit (Bld) [Volume fraction] 38.5 % Normal 36.0-48.[address] [facility] Comment on above: Performed By: #### C VDTBH #### [facility] [address] [place] [address] Dr. Ibis Jimenez Hemoglobin (Bld) [Mass/Vol] 12.4 g/dL Normal 12.0-16.[address] [facility] Comment on above: Performed By: #### C VDTBH #### [facility] [address] [place] [address] Dr. Ibis Jimenez IG # 0.20 10e3/ul Critically high 0.00-0.03 [facility] Comment on above: Performed By: #### C VDTBH #### [facility] [address] [place] [address] Dr. Ibis Jimenez IG % 1.8 % Critically high 0.0-0.5 [facility] Comment on above: Performed By: #### C VDTBH #### [facility] [address] [place] [address] Dr. Ibis Jimenez LYMPH # 0.5 103/ul Critically low 1.2-3.8 [facility] Comment on above: Performed By: #### C VDTBH #### [facility] [address] [place] [address] Dr. Ibis Jimenez Lymphocytes/100 WBC (Bld) 4.6 % Critically low 20.5-60.[address] [facility] Comment on above: Performed By: #### C VDTBH #### [facility] [address] [place] [address] Dr. Ibis Jimenez MANUAL DIFF REQ NO Normal [facility] Comment on above: Performed By: #### C VDTBH #### [facility] [address] [place] [address] Dr. Ibis Jimenez MCH (RBC) [Entitic mass] 28.2 pg Normal 26.7-34.[address] [facility] Comment on above: Performed By: #### C VDTBH #### [facility] [address] [place] [address] Dr. Ibis Jimenez MCHC (RBC) [Mass/Vol] 32.2 g/dL Normal 29.9-35.[address] [facility] Comment on above: Performed By: #### C VDTBH #### [facility] [address] [place] [address] Dr. Ibis Jimenez MCV (RBC) [Entitic vol] 87.5 fL Normal 81.0-99.0 [facility] Comment on above: Performed By: #### C VDTBH #### [facility] [address] [place] [address] Dr. Ibis Jimenez MONO # 0.1 103/ul Critically low 0.3-0.8 [facility] Comment on above: Performed By: #### C VDTBH #### [facility] [address] [place] [address] Dr. Ibis Jimenez Monocytes/100 WBC (Bld) 1.3 % Critically low 1.7-12.[address] [facility] Comment on above: Performed By: #### C VDTBH #### [facility] [address] [place] [address] Dr. Ibis Jimenez NEUT # 10.1 103/ul Critically high 1.4-6.5 [facility] Comment on above: Performed By: #### C VDTBH #### [facility] [address] [place] [address] Dr. Ibis Jimenez Neutrophils/100 WBC (Bld) 91.9 % Critically high 43.0-75.[address] [facility] Comment on above: Performed By: #### C VDTBH #### [facility] [address] [place] [address] Dr. Ibis Jimenez Platelet mean volume (Bld) [Entitic vol] 9.1 fL Critically low 9.5-13.[address] [facility] Comment on above: Performed By: #### C VDTBH #### [facility] [address] [place] [address] Dr. Ibis Jimenez PLT 240 103/ul Normal 150-[address] [facility] Comment on above: Performed By: #### C VDTBH #### [facility] [address] [place] [address] Dr. Ibis Jimenez RBC 4.40 106/ul Normal 4.20-5.[address] [facility] Comment on above: Performed By: #### C VDTBH #### [facility] [address] [place] [address] Dr. Ibis Jimenez WBC 11.0 103/ul Normal 4.0-11.[address] [facility] Comment on above: Performed By: #### C VDTBH #### [facility] [address] [place] [address] Dr. Ibis Jimenez PROF 14(COMP METB)on 023 Albumin [Mass/Vol] 3.3 g/dL Critically low 3.4-5.[address] [facility] [facility] Comment on above: Performed By: #### B MP #### [facility] [address] [place] [address] Dr. Ibis Jimenez Albumin/Globulin [Mass ratio] 0.9 {ratio} Normal [facility] Comment on above: Performed By: #### B MP #### [facility] [address] [place] [address] Dr. Ibis Jimenez ALP [Catalytic activity/Vol] 63 U/L Normal 46-[address] [facility] Comment on above: Performed By: #### B MP #### [facility] [address] [place] [address] Dr. Ibis Jimenez ALT [Catalytic activity/Vol] 32 U/L Normal 14-[address] [facility] Comment on above: Performed By: #### B MP #### [facility] [address] [place] [address] Dr. Ibis Jimenez Anion gap [Moles/Vol] 12.9 mmol/L Normal [facility] Comment on above: Performed By: #### B MP #### [facility] [address] [place] [address] Dr. Ibis Jimenez AST [Catalytic activity/Vol] 14 U/L Critically low 15-37 [facility] Comment on above: Performed By: #### B MP #### [facility] [address] [address] [address] Ibis Jimenez Bilirubin [Mass/Vol] 0.2 mg/dL Normal 0.2-1.[address] [facility] Comment on above: Performed By: #### B MP #### [facility] [address] [address] [address] Ibis Jimenez Calcium [Mass/Vol] 8.5 mg/dL Normal 8.5-10.1 [facility] Comment on above: Performed By: #### B MP #### [facility] [address] [address] [address] Ibis Jimenez Chloride [Moles/Vol] 106 mmol/L Normal 98-[address] [facility] Comment on above: Performed By: #### B MP #### [facility] [address] [address] [address] Ibis Jimenez CO2 [Moles/Vol] 26.6 mmol/L Normal 21.0-32.0 [facility] Comment on above: Performed By: #### B MP #### [facility] [address] [place] [address] Dr. Ibis Jimenez Creatinine [Mass/Vol] 0.89 mg/dL Normal 0.55-1.[address] [facility] Comment on above: Performed By: #### B MP #### [facility] [address] [address] [address] Ibis Jimenez EGFR-AF CITIZEN OF [place] >60 Normal >=60 [facility] Comment on above: Performed By: #### B MP #### [facility] [address] [address] [address] Ibis Jimenez EGFR-NON AF CITIZEN OF [place] >60 Normal >=[address] [facility] Comment on above: Performed By: #### B MP #### [facility] [address] [address] [address] Ibis Jimenez Globulin (S) [Mass/Vol] 3.6 g/dL Normal T [facility] Comment on above: Performed By: #### B MP #### [facility] [address] [address] [address] Ibis Jimenez Glucose [Mass/Vol] 134 mg/dL Critically high 74-106 T [facility] Comment on above: Performed By: #### B MP #### [facility] [address] [address] [address] Ibis Jimenez Potassium [Moles/Vol] 4.5 mmol/L Normal 3.5-5.[address] [facility] Comment on above: Performed By: #### B MP #### [facility] [address] [address] [address] Ibis Jimenez Protein [Mass/Vol] 6.9 g/dL Normal 6.4-8.2 [facility] Comment on above: Performed By: #### B MP #### [facility] [address] [address] [address] Ibis Jimenez Sodium [Moles/Vol] 141 mmol/L Normal 136-145 [facility] Comment on above: Performed By: #### B MP #### [facility] [address] [address] [address] Ibis Jimenez Urea nitrogen [Mass/Vol] 15.0 mg/dL Normal 7.0-18.[address] [facility] Comment on above: Performed By: #### B MP #### [facility] [address] [address] [address] Ibis Jimenez Urea nitrogen/Creatinine [Mass ratio] 16.9 mg/mg Normal [facility] Comment on above: Performed By: #### B MP #### [facility] [address] HEAD WO CONon [...] NICHOLAS MARCUS Date: 2022-05-23 19:25 Normal [facility] CT LSPINE WO CONon [address] LSM[address] WO CON CT CERVICAL SPINE WITHOUT CONTRAST. [...] by: SINDY UNLU Date: 2022-05-23 19:[address] [facility] CBC W Auto Differential pane l (Bld)on 04-01-2022 Basophils (Bld) [#/Vol] 10*3/uL Normal <0.11 C [facility] Comment on above: Order Comment: Speci men Type: BLOOD SPECIMEN [facility] Facility[facility] Address: [address] [place] [phone] Performed By: #### 1 4334-7 #### [facility] CLIA [id number] [address] [place] [address] [place] Basophils/100 WBC (Bld) 0.1 % Normal [facility] Comment on above: Order Comment: Speci men Type: BLOOD SPECIMEN Ordering Facility: [facility] Address: [address] [place] [address] Performed By: #### 1 4334-7 #### [facility] CLIA [id number] [address] [place] [address] [place] Differential cell count method Nom (Bld) Auto Normal [facility] Comment on above: Order Comment: Speci men Type: BLOOD SPECIMEN Ordering Facility: [facility] Address: [address] [place] [address] Performed By: #### 1 4334-7 #### [facility] CLIA [id number] [address] [place] [address] [place] Eosinophils (Bld) [#/Vol] 10*3/uL Normal <0.46 [facility] Comment on above: Order Comment: Speci men Type: BLOOD SPECIMEN Ordering Facility: [facility] Address: [address] [place], [place] [address] Performed By: #### 1 4334-7 #### [facility] CLIA [id number] [address] [place] [address] [place] Eosinophils/100 WBC (Bld) 0.1 % Normal [facility] Comment on above: Order Comment: Speci men Type: BLOOD SPECIMEN Ordering Facility: [facility] Address: [address] [place], [place] [address] Performed By: #### 1 4334-7 #### [facility] CLIA [id number] [address] [place] [address] [place] Erythrocyte distribution width (RBC) [Ratio] 12.6 % Normal 11.5-15.0 [facility] Comment on above: Order Comment: Speci men Type: BLOOD SPECIMEN Ordering Facility: [facility] Address: [address] Performed By: #### 1 4334-7 #### [facility] CLIA [id number] [address] [place] [address] [place] Hematocrit (Bld) [Volume fraction] 40.6 % Normal 36.0-46.0 [facility] Comment on above: Order Comment: Speci men Type: BLOOD SPECIMEN Ordering Facility: [facility] Address: [address] Performed By: #### 1 4334-7 #### [facility] CLIA [id number] [address] [place] [address] [place] Hemoglobin (Bld) [Mass/Vol] 13.6 g/dL Normal 11.5-15.5 [facility] Comment on above: Order Comment: Speci men Type: BLOOD SPECIMEN Ordering Facility: [facility] Address: [address] Performed By: #### 1 4334-7 #### [facility] CLIA [id number] [address] [place] [address] [place] Immature granulocytes (Bld) [#/Vol] 0.04 10*3/uL Normal <0.10 [facility] Comment on above: Order Comment: Speci men Type: BLOOD SPECIMEN Ordering Facility: [facility] Address: [address] Performed By: #### 1 4334-7 #### [facility] CLIA [id number] [address] [place] [address] [place] Immature granulocytes/100 WBC (Bld) 0.5 % Normal [facility] Comment on above: Order Comment: Speci men Type: BLOOD SPECIMEN Ordering Facility[facility] Address: [address] Performed By: #### 1 4334-7 #### [facility] CLIA [id number] [address] [place] [address] [place] Lymphocytes (Bld) [#/Vol] 0.84 10*3/uL Low 1.00-4.00 [facility] Comment on above: Order Comment: Speci men Type: BLOOD SPECIMEN Ordering Facility[facility] Address: [address] [place] [address] Performed By: #### 1 4334-7 #### [facility] CLIA [id number] [address] [place] [address] [place] Lymphocytes/100 WBC (Bld) 9.5 % Normal [facility] Comment on above: Order Comment: Speci men Type: BLOOD SPECIMEN Ordering Facility[facility] Address: [address] [place] [address] Performed By: #### 1 4334-7 #### [facility] CLIA [id number] [address] [place] [address] [place] MCH (RBC) [Entitic mass] 28.8 pg Normal 26.0-34.0 [facility] Comment on above: Order Comment: Speci men Type: BLOOD SPECIMEN Ordering Facility[facility] Address: [address] [place] [address] Performed By: #### 1 4334-7 #### [facility] CLIA [id number] [address] [place] [address] [place] MCHC (RBC) [Mass/Vol] 33.5 g/dL Normal 30.5-36.0 [facility] Comment on above: Order Comment: Speci men Type: BLOOD SPECIMEN Ordering Facility[facility] Address: [address] [place], [place] [address] Performed By: #### 1 4334-7 #### [facility] CLIA [id number] [address] [place] [address] [place] MCV (RBC) [Entitic vol] 85.8 fL Normal 80.0-100.0 C [facility] Comment on above: Order Comment: Speci men Type: BLOOD SPECIMEN Ordering Facility[facility] Address: [address] [place] [address] Performed By: #### 1 4334-7 #### [facility] CLIA [id number] [address] [place] [address] [place] Monocytes (Bld) [#/Vol] 0.06 10*3/uL Normal <0.87 [facility] Comment on above: Order Comment: Speci men Type: BLOOD SPECIMEN Ordering [facility] Address: [address] Performed By: #### 1 4334-7 #### [facility] CLIA [id number] [address] [place] [address] [place] Monocytes/100 WBC (Bld) 0.7 % Normal [facility] Comment on above: Order Comment: Speci men Type: BLOOD SPECIMEN Order[facility] Address: [address] Performed By: #### 1 4334-7 #### [facility] CLIA [id number] [address] [place] [address] [place] Neutrophils (Bld) [#/Vol] 7.87 10*3/uL High 1.45-7.50 [facility] Comment on above: Order Comment: Speci men Type: BLOOD SPECIMEN Ordering [facility] Address: [address] Performed By: #### 1 4334-7 #### [facility] CLIA [id number] [address] [place] [address] [place] Neutrophils/100 WBC (Bld) 89.1 % Normal [facility] Comment on above: Order Comment: Speci men Type: BLOOD SPECIMEN Order[facility] Address: [address] Performed By: #### 1 4334-7 #### [facility] CLIA [id number] [address] [place] [address] [place] Nucleated RBC (Bld) [#/Vol] 10*3/uL Normal <0.01 [facility] Comment on above: Order Comment: Speci men Type: BLOOD SPECIMEN Order[facility] Facility[facility] Address: [address] [place] [address] Performed By: #### 1 4334-7 #### [facility] CLIA [id number] [address] [place] [address] [place] Nucleated RBC/100 WBC (Bld) [Ratio] 0.0 /100 WBC Normal [facility] Comment on above: Order Comment: Speci men Type: BLOOD SPECIMEN Ordering Facility[facility] Address: [address] [place], [place] [address] Performed By: #### 1 4334-7 #### [facility] CLIA [id number] [address] [place] [address] [place] Platelet mean volume (Bld) [Entitic vol] 10.0 fL Normal 9.0-12.7 [facility] Comment on above: Order Comment: Speci men Type: BLOOD SPECIMEN Ordering Facility[facility] Address: [address] [place] [phone] Performed By: #### 1 4334-7 #### [facility] CLIA [id number] [address] [place] [address] [place] Platelets (Bld) [#/Vol] 219 10*3/uL Normal 150-400 [facility] Comment on above: Order Comment: Speci men Type: BLOOD SPECIMEN Ordering Facility[facility] Address: [address] [place] [address] Result Comment: No c lot detected. Performed By: #### 1 4334-7 #### [facility] CLIA [id number] [address] [place] [address] [place] RBC (Bld) [#/Vol] 4.73 10*6/uL Normal 3.90-5.20 [facility] Comment on above: Order Comment: Speci men Type: BLOOD SPECIMEN Order[facility] Address: [address] [place] [address] Performed By: #### 1 4334-7 #### [facility] CLIA [id number] [address] [place] [address] [facility] WBC (Bld) [#/Vol] 8.83 10*3/uL Normal 3.70-11.00 [facility] Comment on above: Order Comment: Speci men Type: BLOOD SPECIMEN Ordering Facility[facility] Address: [address] [place] [address] Performed By: #### 1 4334-7 #### [facility] CLIA [id number] [address] [place] [address] [facility] CNDSon 04-01-2022 CNDS HNO ID: [id number] Author: Lo Coyle PA-C Service: Neurology Adult Epilepsy Author Type: Physician [employer] Type: Discharge Summary Filed: 04/01/2022 5:40 PM Note Text: ---- Attestation signed by David Goldman MD at 04/02/2022 9:36 AM [facility] ATTENDING NOTE Date of Service: April 02, 2022 [facility] STAFF PHYSICIAN NOTE OF PERSONAL INVOLVEMENT [...] I have performed the substantive portion including [id number] and relevant services for a total of < 30 minutes. David Goldman MD Staff Physician [facility] [address] [place] [address] Office ---- DISCHARGE SUMMARY PATIENT NAME: Margaret [...] year old female who presented to the [facility] on 04/01/2022 for diagnosis. Medications were [...] Dr. Good (more content not included)... Normal [facility] CT HEAD WO CONon 04-01-2022 CT [...] ROBIN IRBY Date: 2022-03-31 22:40 Normal [facility] Comprehensive metabolic 2000 panelon 04-01-2022 Albumin [Mass/Vol] 4.2 g/dL Normal 3.9-4.9 [facility] Comment on above: Order Comment: Speci men Type: BLOOD SPECIMEN Order[facility] Address: [address] [address] Performed By: #### 1 4334-7 #### [facility] CLIA [id number] [address] [place] [address] [place] ALP [Catalytic activity/Vol] 84 U/L Normal 34-123 [facility] Comment on above: Order Comment: Speci men Type: BLOOD SPECIMEN Order[facility] Address: [address] Performed By: #### 1 4334-7 #### [facility] CLIA [id number] [address] [place] [address] [place] ALT [Catalytic activity/Vol] 12 U/L Normal 7-38 [facility] Comment on above: Order Comment: Speci men Type: BLOOD SPECIMEN Order[facility] Address: [address] [address] Performed By: #### 1 4334-7 #### [facility] CLIA [id number] [address] [place] [address] [place] Anion gap [Moles/Vol] 14 mmol/L Normal 9-18 [facility] Comment on above: Order Comment: Speci men Type: BLOOD SPECIMEN Order[facility] Address: [address] Performed By: #### 1 4334-7 #### [facility] CLIA [id number] [address] [place] [address] [place] AST [Catalytic activity/Vol] 14 U/L Normal 13-35 [facility] Comment on above: Order Comment: Speci men Type: BLOOD SPECIMEN Order[facility] Address: [address] [place] [address] Performed By: #### 1 4334-7 #### [facility] CLIA [id number] [address] [place] [address] [place] Bilirubin [Mass/Vol] 0.3 mg/dL Normal 0.2-1.3 [facility] Comment on above: Order Comment: Speci men Type: BLOOD SPECIMEN Order[facility] Address: [address] [place], [place] [address] Performed By: #### 1 4334-7 #### [facility] CLIA [id number] [address] [place] [address] [place] Calcium [Mass/Vol] 8.9 mg/dL Normal 8.5-10.2 [facility] Comment on above: Order Comment: Speci men Type: BLOOD SPECIMEN Order[facility] Facility[facility] Address: [address] [place] [address] Performed By: #### 1 4334-7 #### [facility] CLIA [id number] [address] [place] [address] [place] Chloride [Moles/Vol] 105 mmol/L Normal 97-105 [facility] Comment on above: Order Comment: Speci men Type: BLOOD SPECIMEN [facility] Address: [address] [address] Performed By: #### 1 4334-7 #### [facility] CLIA [id number] [address] [place] [address] [place] CO2 [Moles/Vol] 20 mmol/L Low 22-30 [facility] Comment on above: Order Comment: Speci men Type: BLOOD SPECIMEN [facility] Address: [address] [address] Performed By: #### 1 4334-7 #### [facility] CLIA [id number] [address] [place] [address] [facility] Creatinine [Mass/Vol] 0.64 mg/dL Normal 0.58-0.96 [facility] Comment on above: Order Comment: Speci men Type: BLOOD SPECIMEN Order[facility] Address: [address] [address] Performed By: #### 1 4334-7 #### [facility] CLIA [id number] [address] [place] [address] ESTIMATED GLOMERULAR FILTRATION RATE 125 mL/min/1.73m??? Normal >=60 [facility] Comment on above: Order Comment: Speci men Type: BLOOD SPECIMEN Order[facility] Address: [address] [place] [address] Result Comment: Fatou mated Glomerular Filtration Rate [...] GFR. Performed By: #### 1 4334-7 #### [facility] CLIA [id number] [address] [place] [address] [place] Glucose [Mass/Vol] 120 mg/dL High 74-99 [facility] Comment on above: Order Comment: Speci men Type: BLOOD SPECIMEN Order[facility] Address: [address] [address] Result Comment: The [place] [employer] Association (ADA) provides guidance for cutoff [...] Standards of Medical Care in Diabetes 2016, [place] [employer]. Diabetes Care. 2016.39(Suppl 1). Performed By: #### 1 4334-7 #### [facility] CLIA [id number] [address] [place] [address] [place] Potassium [Moles/Vol] 4.5 mmol/L Normal 3.7-5.1 [facility] Comment on above: Order Comment: Chaitanya baker Type: BLOOD SPECIMEN Order[facility] Address: [address] [place] [address] Performed By: #### 1 4334-7 #### [facility] CLIA [id number] [address] [place] [address] [place] Protein [Mass/Vol] 6.9 g/dL Normal 6.3-8.0 [facility] Comment on above: Order Comment: Maria Luisai men Type: BLOOD SPECIMEN Order[facility] Address: [address] Performed By: #### 1 4334-7 #### [facility] CLIA [id number] [facility] [place] [address] [place] Sodium [Moles/Vol] 139 mmol/L Normal 136-144 [facility] Comment on above: Order Comment: Speci men Type: BLOOD SPECIMEN [facility] Address: [address] [address] Performed By: #### 1 4334-7 #### [facility] CLIA [id number] [address] [place] [address] [place] Urea nitrogen [Mass/Vol] 11 mg/dL Normal 7-21 [facility] Comment on above: Order Comment: Speci men Type: BLOOD SPECIMEN [facility] Address: [address] [address] Performed By: #### 1 4334-7 #### [facility] CLIA [id number] [address] [place] [address] [place] Covid-19 PCR (CVDTB)on 03-23 SARS-CoV-2 (COVID-19) RNA SAURABH+probe Ql (Unsp spec) Not detected Normal NOT DETECTED [facility] Comment on above: Result Comment: When [...] for this test is supported by the Instrument Designer of Health and Human Service's declaration that [...] used). Performed By: #### C VDTBH #### [facility] [address] [place] [address] Dr. Ibis Jimenez ECG COMPLETEon 04-01-2022 ECG COMPLETE Ventricular Rate : 98 BPM Atrial Rate : 98 BPM P-R Interval : 154 ms QRS Duration : 76 ms Q-T Interval : 364 ms QTC Calculation(Bazett) : 464 ms Calculated P [place] : 51 degrees Calculated R [place] : 60 degrees Calculated T [place] : 54 degrees NORMAL SINUS RHYTHM NORMAL ECG Confirmed by MD MELTON HEBA ([id number]) on 04/04/2022 2:47:00 PM NAME : MARGARET NICHOLSON PID : [id number] : 1995 Gender : Female Race : ORD : [id number] Procedure Date : Apr 01 2022 11:53:22 Edit Date : Apr 04 2022 14:47:01 Diagnosis: NORMAL SINUS RHYTHM NORMAL ECG Confirmed by MD MELTON HEBA ([id number]) on 04/04/2022 2:47:00 PM Test Reason : Chest Pain Location : 89 : M80 M080-06 Overread By : MD MELTON HEBA Edited By : MD MELTON HEBA Referred By : DINORAH IVY Acquired by : AUSTIN HSU Normal [facility] URINE PROFILEon 3 Bilirubin Ql (U) Negative Normal NEGATIVE [facility] Comment on above: Performed By: #### A CET SALYC #### [facility] [address] [place] [address] Dr. Ibis Jimenez Clarity (U) CLEAR Normal CLEAR [facility] Comment on above: Performed By: #### A CET, SALYC #### [facility] [address] [place] [address] Dr. Ibis Jimenez Color (U) YELLOW Normal YELLOW [facility] Comment on above: Performed By: #### A CET, SALYC #### [facility] [address] [place] [address] Dr. Ibis Jimenez ERUSYLVAIN A micrscopic examination will be performed if indicated. Normal [facility] Comment on above: Performed By: #### A CET, SALYC #### [facility] [address] [place] [address] Dr. Ibis Jimenez Glucose Ql (U) Negative Normal NEGATIVE [facility] Comment on above: Performed By: #### A CET, SALYC #### [facility] [address] [place] [address] Dr. Ibis Jimenez Hemoglobin Ql (U) SMALL Abnormal NEGATIVE [facility] Comment on above: Performed By: #### A CET, SALYC #### [facility] [address] [place] [address] Dr. Ibis Jimenez Ketones Ql (U) Negative Normal NEGATIVE [facility] Comment on above: Performed By: #### A CET, SALYC #### [facility] [address] [place] [address] Dr. Ibis Jimenez LEUKOCYTES Negative Normal NEGATIVE [facility] Comment on above: Performed By: #### A CET, SALYC #### [facility] [address] [place] [address] Dr. Ibis Jimenez Nitrite Ql (U) Negative Normal NEGATIVE [facility] Comment on above: Performed By: #### A CET, SALYC #### [facility] [address] [place] [address] Dr. Ibis Jimenez pH (U) 5.5 [pH] Normal 5-[address] [facility] Comment on above: Performed By: #### A CET, SALYC #### [facility] [address] [place] [address] Dr. Ibis Jimenez SPEC GRAVITY >=1.030 Abnormal 1.005-<=1.[address] [place] [address] Comment on above: Performed By: #### A CET, SALYC #### [facility] [address] [place] [address] Dr. Ibis Jimenez UA PROTEIN Negative Normal NEGATIVE/ TRACE [facility] Comment on above: Performed By: #### A CET, SALYC #### [facility] [address] [place] [address] Dr. Ibis Jimenez UR MICRO IND INDICATED Normal [facility] Comment on above: Performed By: #### A CET, SALYC #### [facility] [address] [place] [address] Dr. Ibis Jimenez Urobilinogen Qn (U) 0.2 {Dinorah'U}/dL Normal 0.2 - 1. 0 [facility] Comment on above: Performed By: #### A KORI DAVIS #### [facility] [address] [address] [address] Ibis Jimenez HISTORY PHYSICALon 3 HISTORY PHYSICAL HNO ID: [id number] Author: David Goldman MD Service: Neurology Adult Epilepsy Author Type: Physician Type: HANDP Filed: 04/01/2022 5:15 PM Note Text: NEURO EPILEPSY ADMIT NOTE SERVICE DATE: 04/01/2022 SERVICE TIME: 5:10 AM NIGHT AND WEEKEND COVERAGE: After 5 pm and over the weekends, please page [phone] to contact the epilepsy resident/fellow/pro vider retail sales consultant ATTENDING PHYSICIAN: Dr. Goldman [facility] UNIT: M60 - Adult Epilepsy Monitoring Unit [...] seizures. Margaret was transferred this morning from [place] [facility] for reported 15-16 seizures. She was given 1,000mg IV Keppra at 6 and a total of 4mg IV Ativan at (1mg at 2026, 1mg at 2118 and 2mg at 224). CT brain completed read as no acute intracranial abnormality. UA negative for infection. From ER records: Brought by her family's web production manager after she had some seizures at home. [...] After event, she complains memory issues/vision issues. [facility] admission documentation ([facility] [place]) ADMISSION DATE: 10/19/21 DISCHARGE DATE: 10/20/21 Patient [...] Onset: 2018 (more content not included)... Normal [facility] INFLUENZA A AND B [facility] BELOW Normal [facility] Comment on above: Result Comment: Nega tive for Flu A protein angiten. Infection due to Flu A cannot be ruled out. Flu A angiten in the sample may be below the detection limit of the test. Performed By: #### A MM #### [facility] [address] [place] [address] Dr. Ibis Jimenez [facility] BEL[facility] Normal [facility] Comment on above: Result Comment: Nega tive for Flu B protein antigen. Infection due to Flu B cannot be ruled out. Flu B antigen in the sample may be below the detection limit of the test. Performed By: #### A MM #### [facility] [address] [place] [address] Dr. Ibis Jimenez INFLUENZA A AG Negative Normal NEGATIVE SEE COMMENT [facility] Comment on above: Performed By: #### A MM #### [facility] [address] [place] [address] Dr. Ibis Jimenez INFLUENZA B AG Negative Normal NEGATIVE SEE COMMENT [facility] Comment on above: Performed By: #### A MM #### [facility] [address] [place] [address] Dr. Ibis Jimenez LACTATE/LACTIC ACIDon 2022 Lactate [Moles/Vol] 1.9 mmol/L Normal 0.4-1.9 [facility] Comment on above: Performed By: #### L ACT #### [facility] [address] [address] [address] Ibis Jimenez Baring SerPl-sCncon 023 Baring [Moles/Vol] 0.1 mmol/L Low 0.6-1.2 [facility] Comment on above: Order Comment: Chaitanya baker Type: BLOOD SPECIMEN Ordering Facility: [facility] Address: [address] [place] [address] Result Comment: Refe rence ranges and high/low indicator flags are provided as general guidelines only. The treating physician must determine appropriate target levels/dosing based on the specific clinical situation. Performed By: #### 1 4334-7 #### [facility] CLIA [id number] [address] [place] [address] [place] Magnesium SerPl-mCncon 04-01 Magnesium [Mass/Vol] 1.8 mg/dL Normal 1.7-2.3 [facility] Comment on above: Order Comment: Chaitanya baker Type: BLOOD SPECIMEN Ordering Facility: [facility] Address: [address] [place] [address] Performed By: #### 1 4334-7 #### [facility] CLIA [id number] [address] [place] [address] [place] NURSING PROGon 04-01-2022 NURSING PROG HNO ID: [id number] Author: Gabino Cadena RN Service: Nursing Author Type: Registered Nurse Type: Nursing Progress Note Filed: 04/01/2022 5:55 AM Note Text: The patient arrives to [facility] bed 6 at this time via cart [...] admission questions when patient condition allows. Normal [facility] Phosphate SerPl-mCncon 04-01 Phosphate [Mass/Vol] 2.7 mg/dL Normal 2.7-4.8 [facility] Comment on above: Order Comment: Chaitanya men Type: BLOOD SPECIMEN Ordering Facility: [facility] Address: [address] [id number] Performed By: #### 1 4334-7 #### [facility] CLIA [id number] [address] [place] [address] [place] SARS-CoV-2 RNA Resp Ql SAURABH+p robeon 04-01-2022 SARS-CoV-2 (COVID-19) RNA SAURABH+probe Ql (Resp) COVID 19 RESULT: Not detected The method used is RT-PCR or an equivalent NAAT method. Reference Range(the expected result in uninfected individuals): Not detected Normal [facility] Comment on above: Performed By: #### 9 4500-6 ####[facility] [id number] [address] [place] SOCIAL WORKon 04-01-2022 SOCIAL WORK HNO ID: [id number] Author: GABRIELE Huynh Service: Social Work Author Type: Heel Sewer Type: Social Work Filed: 04/01/2022 4:21 PM [...] childhood stating that's confidential information when this investment underwriter asks about history of trauma during [...] informs she has income from her children's [employer] benefits. PSYCHIATRIC HISTORY: Per chart review, patient has a history of depression, anxiety, PTSD, and bipolar disorder; these diagnoses are confirmed by patient. She [facility] and also has a psychiatrist. Patient informs [...] health provide (more content not included)... Normal [facility] TSH SerPl-aCncon 04-01-2022 TSH Qn 0.537 m[IU]/L Normal 0.270-4.200 [facility] Comment on above: Order Comment: Speci men Type: BLOOD SPECIMEN Ordering Facility: [facility] Address: [address] [place] [id number] Result Comment: If t he patient is , TSH reference range varies by gestational period: First Trimester (weeks 9-12): 0.180-2.990 mIU/L Second Trimester: 0.110-3.980 mIU/L Third Trimester: 0.480-4.710 mIU/L Sanford Fernández et al. A Practical Approach for the Verifications and Determination of Site- and Trimester-Specific Reference Intervals for Thyroid Function tests in . Thyroid, 2019:29:3:412-420. Lior Gan et al. 2017 Guidelines of the [place] Thyroid Association for the Diagnosis and Management of Thyroid Disease during and the . Thyroid, 2017:27:3:315-389. Performed By: #### 1 4334-7 #### [facility] CLIA [id number] [address] [place] [address] [place] URINE MICROSCOPIC ONLYon BACTERIA TRACE Abnormal NONE SEEN [facility] Comment on above: Performed By: #### A CET, SALYC #### [facility] [address] [place] [address] Dr. Ibis Jimenez Bacteria identified Cx Nom (U) NOT INDICATED Normal [facility] Comment on above: Performed By: #### A CET, SALYC #### [facility] [address] [place] [address] Dr. Ibis Jimenez CAST NONE SEEN Normal NONE SEEN [facility] Comment on above: Performed By: #### A CET, SALYC #### [facility] [address] [place] [address] Dr. Ibis Jimenez Crystals LM Nom (Urine sed) NONE SEEN Normal NONE SEEN [facility] Comment on above: Performed By: #### A CET, SALYC #### [facility] [address] [place] [address] Dr. Ibis Jimenez Epithelial cells LM Ql (Urine sed) RARE Normal NONE SEEN /RARE [facility] Comment on above: Performed By: #### A CET, SALYC #### [facility] [address] [place] [address] Dr. Ibis Jimenez MUCOUS TRACE Abnormal NONE SEEN [facility] Comment on above: Performed By: #### A CET, SALYC #### [facility] [address] [place] [address] Dr. Ibis Jimenez RBC 0-2 Normal 0-2 [facility] Comment on above: Performed By: #### A CET, SALYC #### [facility] [address] [place] [address] Dr. Ibis Jimenez WBC NONE SEEN Normal NONE SEEN [facility] Comment on above: Performed By: #### A CET, SALYC #### [facility] [address] [place] [address] Dr. Ibis Jimenez AMMONIAon 03-31-2022 Ammonia (P) [Moles/Vol] 31 umol/L Normal 11-32 [facility] Comment on above: Performed By: #### A MM #### [facility] [address] [place] [address] Dr. Ibis Jimenez CBC AUTO DIFFon 03-31-2022 BASO # 0.0 103/ul Normal 0.0-0.[address] [facility] Comment on above: Performed By: #### A MM #### [facility] [address] [place] [address] Dr. Ibis Jimenez Basophils/100 WBC (Bld) 0.4 % Normal 0.2-2.0 [facility] Comment on above: Performed By: #### A MM #### [facility] [address] [place] [address] Dr. Ibis Jimenez EO # 0.5 103/ul Normal 0.0-0.[address] [facility] Comment on above: Performed By: #### A MM #### [facility] [address] [place] [address] Dr. Ibis Jimenez Eosinophils/100 WBC (Bld) 6.4 % Normal 0.9-7.[address] [facility] Comment on above: Performed By: #### A MM #### [facility] [address] [place] [address] Dr. Ibis Jimenez Erythrocyte distribution width (RBC) [Ratio] 12.8 % Normal 11.0-15.[address] [facility] Comment on above: Performed By: #### A MM #### [facility] [address] [place] [address] Dr. Ibis Jimenez Hematocrit (Bld) [Volume fraction] 36.6 % Normal 36.0-48.[address] [facility] Comment on above: Performed By: #### A MM #### [facility] [address] [place] [address] Dr. Ibis Jimenez Hemoglobin (Bld) [Mass/Vol] 12.5 g/dL Normal 12.0-16.[address] [facility] Comment on above: Performed By: #### A MM #### [facility] [address] [place] [address] Dr. Ibis Jimenez IG # 0.02 10e3/ul Normal 0.00-0.[address] [facility] Comment on above: Performed By: #### A MM #### [facility] [address] [place] [address] Dr. Ibis Jimenez IG % 0.3 % Normal 0.0-0.[address] [facility] Comment on above: Performed By: #### A MM #### [facility] [address] [place] [address] Dr. Ibis Jimenez LYMPH # 2.0 103/ul Normal 1.2-3.[address] [facility] Comment on above: Performed By: #### A MM #### [facility] [address] [place] [address] Dr. Ibis Jimenez Lymphocytes/100 WBC (Bld) 25.0 % Normal 20.5-60.[address] [facility] Comment on above: Performed By: #### A MM #### [facility] [address] [place] [address] Dr. Ibis Jimenez MANUAL DIFF REQ NO Normal [facility] Comment on above: Performed By: #### A MM #### [facility] [address] [place] [address] Dr. Ibis Jimenez MCH (RBC) [Entitic mass] 29.5 pg Normal 26.7-34.[address] [facility] Comment on above: Performed By: #### A MM #### [facility] [address] [place] [address] Dr. Ibis Jimenez MCHC (RBC) [Mass/Vol] 34.2 g/dL Normal 29.9-35.[address] [facility] Comment on above: Performed By: #### A MM #### [facility] [address] [place] [address] Dr. Ibis Jimenez MCV (RBC) [Entitic vol] 86.3 fL Normal 81.0-99.0 [facility] Comment on above: Performed By: #### A MM #### [facility] [address] [place] [address] Dr. Ibis Jimenez MONO # 0.4 103/ul Normal 0.3-0.[address] [facility] Comment on above: Performed By: #### A MM #### [facility] [address] [place] [address] Dr. Ibis Jimenez Monocytes/100 WBC (Bld) 5.6 % Normal 1.7-12.0 T [facility] Comment on above: Performed By: #### A MM #### [facility] [address] [place] [address] Dr. Ibis Jimenez NEUT # 4.9 103/ul Normal 1.4-6.[address] [facility] Comment on above: Performed By: #### A MM #### [facility] [address] [place] [address] Dr. Ibis Jimenez Neutrophils/100 WBC (Bld) 62.3 % Normal 43.0-75.[address] [facility] Comment on above: Performed By: #### A MM #### [facility] [address] [place] [address] Dr. Ibis Jimenez Platelet mean volume (Bld) [Entitic vol] 9.5 fL Normal 9.5-13.[address] [facility] Comment on above: Performed By: #### A MM #### [facility] [address] [place] [address] Dr. Ibis Jimenez PLT 246 103/ul Normal 150-[address] [facility] Comment on above: Performed By: #### A MM #### [facility] [address] [place] [address] Dr. Ibis Jimenez RBC 4.24 106/ul Normal 4.20-5.[address] [facility] Comment on above: Performed By: #### A MM #### [facility] [address] [place] [address] Dr. Ibis Jimenez WBC 7.8 103/ul Normal 4.0-11.[address] [facility] Comment on above: Performed By: #### A MM #### [facility] [address] [place] [address] Dr. Ibis Jimenez CULTURE BLOODon 03-31-2022 Microscopic examination of blood, culture Culture Observations: NO GROWTH AT 5 DAYS. Normal [facility] Comment on above: Performed By: #### B [id number] #### [facility] [address] [place] [address] Dr. Ibis Jimenez Microscopic examination of blood, culture Culture Observations: NO GROWTH AT [address] [facility] Comment on above: Performed By: #### B MP #### [facility] [address] [place] [address] Dr. Ibis Jimenez LACTATE/LACTIC ACIDon 2022 Lactate [Moles/Vol] 2.8 mmol/L Critically high 0.4-1.[address] [facility] Comment on above: Performed By: #### C VDTBH #### [facility] [address] [place] [address] Dr. Ibis Jimenez PROF 14(COMP METB)on 023 Albumin [Mass/Vol] 3.4 g/dL Normal 3.4-5.0 [facility] Comment on above: Performed By: #### B MP #### [facility] [address] [place] [address] Dr. Ibis Jimenez Albumin/Globulin [Mass ratio] 1.2 {ratio} Normal [facility] Comment on above: Performed By: #### B MP #### [facility] [address] [place] [address] Dr. Ibis Jimenez ALP [Catalytic activity/Vol] 85 U/L Normal 46-[address] [facility] Comment on above: Performed By: #### B MP #### [facility] [address] [place] [address] Dr. Ibis Jimenez ALT [Catalytic activity/Vol] 18 U/L Normal 14-[address] [facility] Comment on above: Performed By: #### B MP #### [facility] [address] [place] [address] Dr. Ibis Jimenez Anion gap [Moles/Vol] 13.2 mmol/L Normal [facility] Comment on above: Performed By: #### B MP #### [facility] [address] [place] [address] Dr. Ibis Jimenez AST [Catalytic activity/Vol] 11 U/L Critically low 15-[address] [facility] Comment on above: Performed By: #### B MP #### [facility] [address] [address] [address] Ibis Jimenez Bilirubin [Mass/Vol] 0.2 mg/dL Normal 0.2-1.[address] [facility] Comment on above: Performed By: #### B MP #### [facility] [address] [address] [address] Ibis Jimenez Calcium [Mass/Vol] 8.6 mg/dL Normal 8.5-10.1 [facility] Comment on above: Performed By: #### B MP #### [facility] [address] [address] [address] Ibis Jimenez Chloride [Moles/Vol] 105 mmol/L Normal 98-[address] [facility] Comment on above: Performed By: #### B MP #### [facility] [address] [address] [address] Ibis Jimenez CO2 [Moles/Vol] 25.1 mmol/L Normal 21.0-32.0 [facility] Comment on above: Performed By: #### B MP #### [facility] [address] [address] [address] Ibis Jimenez Creatinine [Mass/Vol] 0.80 mg/dL Normal 0.55-1.[address] [facility] Comment on above: Performed By: #### B MP #### [facility] [address] [address] [address] Ibis Jimenez EGFR-AF CITIZEN OF [place] >60 Normal >=60 [facility] Comment on above: Performed By: #### B MP #### [facility] [address] [address] [address] Ibis Jimenez EGFR-NON AF CITIZEN OF [place] >60 Normal >=[address] [facility] Comment on above: Performed By: #### B MP #### [facility] [address] [address] [address] Ibis Jimenez Globulin (S) [Mass/Vol] 2.9 g/dL Normal T [facility] Comment on above: Performed By: #### B MP #### [facility] [address] [address] [address] Ibis Jimenez Glucose [Mass/Vol] 99 mg/dL Normal 74-106 [facility] Comment on above: Performed By: #### B MP #### [facility] [address] [address] [address] Ibis Jimenez Potassium [Moles/Vol] 3.3 mmol/L Critically low 3.5-5.[address] [facility] Comment on above: Performed By: #### B MP #### [facility] [address] [address] [address] Ibis Jimenez Protein [Mass/Vol] 6.3 g/dL Critically low 6.4-8.2 [facility] Comment on above: Performed By: #### B MP #### [facility] [address] [place] [address] Dr. Ibis Jimenez Sodium [Moles/Vol] 140 mmol/L Normal 136-145 [facility] Comment on above: Performed By: #### B MP #### [facility] [address] [place] [address] Dr. Ibis Jimenez Urea nitrogen [Mass/Vol] 10.0 mg/dL Normal 7.0-18.[address] [facility] Comment on above: Performed By: #### B MP #### [facility] [address] [place] [address] Dr. Ibis Jimenez Urea nitrogen/Creatinine [Mass ratio] 12.5 mg/mg Normal [facility] Comment on above: Performed By: #### B MP #### [facility] [address] [place] [address] Dr. Ibis Jimenez CBC AUTO DIFFon 01-14-2022 BASO # 0.0 103/ul Normal 0.0-0.[address] [facility] Comment on above: Performed By: #### A MM #### [facility] [address] [place] [address] Dr. Ibis Jimenez Basophils/100 WBC (Bld) 0.3 % Normal 0.2-2.0 [facility] Comment on above: Performed By: #### A MM #### [facility] [address] [place] [address] Dr. Ibis Jimenez EO # 0.2 103/ul Normal 0.0-0.7 [facility] Comment on above: Performed By: #### A MM #### [facility] [address] [place] [address] Dr. Ibis Jimenez Eosinophils/100 WBC (Bld) 2.7 % Normal 0.9-7.[address] [facility] Comment on above: Performed By: #### A MM #### [facility] [address] [place] [address] Dr. Ibis Jimenez Erythrocyte distribution width (RBC) [Ratio] 13.2 % Normal 11.0-15.[address] [facility] Comment on above: Performed By: #### A MM #### [facility] [address] [place] [address] Dr. Ibis Jimenez Hematocrit (Bld) [Volume fraction] 35.7 % Critically low 36.0-48.[address] [facility] Comment on above: Performed By: #### A MM #### [facility] [address] [place] [address] Dr. Ibis Jimenez Hemoglobin (Bld) [Mass/Vol] 12.2 g/dL Normal 12.0-16.[address] [facility] Comment on above: Performed By: #### A MM #### [facility] [address] [place] [address] Dr. Ibis Jimenez IG # 0.04 10e3/ul Critically high 0.00-0.03 [facility] Comment on above: Performed By: #### A MM #### [facility] [address] [place] [address] Dr. Ibis Jimenez IG % 0.5 % Normal 0.0-0.5 [facility] Comment on above: Performed By: #### A MM #### [facility] [address] [place] [address] Dr. Ibis Jimenez LYMPH # 2.1 103/ul Normal 1.2-3.8 [facility] Comment on above: Performed By: #### A MM #### [facility] [address] [place] [address] Dr. Ibis Jimenez Lymphocytes/100 WBC (Bld) 27.3 % Normal 20.5-60.[address] [facility] Comment on above: Performed By: #### A MM #### [facility] [address] [place] [address] Dr. Ibis Jimenez MANUAL DIFF REQ NO Normal [facility] Comment on above: Performed By: #### A MM #### [facility] [address] [place] [address] Dr. Ibis Jimenez MCH (RBC) [Entitic mass] 29.0 pg Normal 26.7-34.[address] [facility] Comment on above: Performed By: #### A MM #### [facility] [address] [place] [address] Dr. Ibis Jimenez MCHC (RBC) [Mass/Vol] 34.2 g/dL Normal 29.9-35.[address] [facility] Comment on above: Performed By: #### A MM #### [facility] [address] [place] [address] Dr. Ibis Jimenez MCV (RBC) [Entitic vol] 84.8 fL Normal 81.0-99.0 [facility] Comment on above: Performed By: #### A MM #### [facility] [address] [place] [address] Dr. Ibis Jimenez MONO # 0.7 103/ul Normal 0.3-0.[address] [facility] Comment on above: Performed By: #### A MM #### [facility] [address] [place] [address] Dr. Ibis Jimenez Monocytes/100 WBC (Bld) 8.7 % Normal 1.7-12.0 [facility] Comment on above: Performed By: #### A MM #### [facility] [address] [place] [address] Dr. Ibis Jimenez NEUT # 4.7 103/ul Normal 1.4-6.[address] [facility] Comment on above: Performed By: #### A MM #### [facility] [address] [place] [address] Dr. Ibis Jimenez Neutrophils/100 WBC (Bld) 60.5 % Normal 43.0-75.[address] [facility] Comment on above: Performed By: #### A MM #### [facility] [address] [place] [address] Dr. Ibis Jimenez Platelet mean volume (Bld) [Entitic vol] 9.6 fL Normal 9.5-13.[address] [facility] Comment on above: Performed By: #### A MM #### [facility] [address] [place] [address] Dr. Ibis Jimenez PLT 212 103/ul Normal 150-[address] [facility] Comment on above: Performed By: #### A MM #### [facility] [address] [place] [address] Dr. Ibis Jimenez RBC 4.21 106/ul Normal 4.20-5.40 [facility] Comment on above: Performed By: #### A MM #### [facility] [address] [place] [address] Dr. Ibis Jimenez WBC 7.7 103/ul Normal 4.0-11.0 [facility] Comment on above: Performed By: #### A MM #### [facility] [address] [place] [address] ABD/PELV W CONon [...] TONY DAHL Date: 2022-01-14 20:01 Normal [facility] ER URINE PROFILEon 2 Bilirubin Ql (U) Negative Normal NEGATIVE [facility] Comment on above: Performed By: #### A CET, SALYC #### [facility] [facility] [address] [place] [address] Dr. Ibis Jimenez Clarity (U) CLEAR Normal CLEAR [facility] Comment on above: Performed By: #### A CET, SALYC #### [facility] [address] [place] [address] Dr. Ibis Jimenez Color (U) LT. YELLOW Normal YELLOW [facility] Comment on above: Performed By: #### A CET, SALYC #### [facility] [address] [place] [address] Dr. Ibis Jimenez ERUAHKishan A micrscopic examination will be performed if indicated. Normal [facility] Comment on above: Performed By: #### A CET, SALYC #### [facility] [address] [place] [address] Dr. Ibis Jimenez Glucose Ql (U) Negative Normal NEGATIVE [facility] Comment on above: Performed By: #### A CET, SALYC #### [facility] [address] [place] [address] Dr. Ibis Jimenez Hemoglobin Ql (U) Negative Normal NEGATIVE [facility] Comment on above: Performed By: #### A CET, SALYC #### [facility] [address] [place] [address] Dr. Ibis Jimenez Ketones Ql (U) Negative Normal NEGATIVE [facility] Comment on above: Performed By: #### A CET, SALYC #### [facility] [address] [place] [address] Dr. Ibis Jimenez LEUKOCYTES TRACE Abnormal NEGATIVE [facility] Comment on above: Performed By: #### A CET, SALYC #### [facility] [address] [place] [address] Dr. Ibis Jimenez Nitrite Ql (U) Negative Normal NEGATIVE [facility] Comment on above: Performed By: #### A CET, SALYC #### [facility] [address] [place] [address] Dr. Ibis Jimenez pH (U) 5.5 [pH] Normal 5-[address] [facility] Comment on above: Performed By: #### A CET, SALYC #### [facility] [address] [place] [address] Dr. Ibis Jimenez SPEC GRAVITY 1.025 Normal 1.005-<=1.[address] [facility] Comment on above: Performed By: #### A CET, SALYC #### [facility] [address] [place] [address] Dr. Ibis Jimenez UA PROTEIN Negative Normal NEGATIVE/ TRACE [facility] Comment on above: Performed By: #### A CET, SALYC #### [facility] [address] [place] [address] Dr. Ibis Jimenez UR MICRO IND INDICATED Normal [facility] Comment on above: Performed By: #### A CET, SALYC #### [facility] [address] [place] [address] Dr. Ibis Jimenez Urobilinogen Qn (U) 0.2 {Dinorah'U}/dL Normal 0.2 - 1. [address] [facility] Comment on above: Performed By: #### A CET, SALYC #### [facility] [address] [address] [address] Ibis Jimenez URon 01-14-2022 , QUAL Negative Normal NEGATIVE The [facility] Comment on above: Performed By: #### A KORI DAVIS #### [facility] [address] [address] [address] Ibis Jimenez PROF CHEM 8 (BAS METB)on Anion gap [Moles/Vol] 9.9 mmol/L Normal [facility] Comment on above: Performed By: #### B MP #### [facility] [address] [address] [address] Ibis Jimenez Calcium [Mass/Vol] 8.6 mg/dL Normal 8.5-10.1 [facility] Comment on above: Performed By: #### B MP #### [facility] [address] [place] [address] Dr. Ibis Jimenez Chloride [Moles/Vol] 105 mmol/L Normal 98-[address] [facility] Comment on above: Performed By: #### B MP #### [facility] [address] [address] [address] Ibis Jimenez CO2 [Moles/Vol] 27.5 mmol/L Normal 21.0-32.0 [facility] Comment on above: Performed By: #### B MP #### [facility] [address] [address] [address] Ibis Jimenez Creatinine [Mass/Vol] 0.70 mg/dL Normal 0.55-1.[address] [facility] Comment on above: Performed By: #### B MP #### [facility] [address] [address] [address] Ibis Jimenez EGFR-AF CITIZEN OF [place] >60 Normal >=60 [facility] Comment on above: Performed By: #### B MP #### [facility] [address] [place] [address] Dr. Ibis Jimenez EGFR-NON AF CITIZEN OF [place] >60 Normal >=[address] [facility] Comment on above: Performed By: #### B MP #### [facility] [address] [address] [address] Ibis Jimenez Glucose [Mass/Vol] 83 mg/dL Normal 74-106 [facility] Comment on above: Performed By: #### B MP #### [facility] [address] [place] [address] Dr. Ibis Jimenez Potassium [Moles/Vol] 4.4 mmol/L Normal 3.5-5.[address] [facility] Comment on above: Performed By: #### B MP #### [facility] [address] [place] [address] Dr. Ibis Jimenez Sodium [Moles/Vol] 138 mmol/L Normal 136-145 [facility] Comment on above: Performed By: #### B MP #### [facility] [address] [place] [address] Dr. Ibis Jimenez Urea nitrogen [Mass/Vol] 13.0 mg/dL Normal 7.0-18.[address] [facility] Comment on above: Performed By: #### B MP #### [facility] [address] [place] [address] Dr. Ibis Jimenez Urea nitrogen/Creatinine [Mass ratio] 18.6 mg/mg Normal [facility] Comment on above: Performed By: #### B MP #### [facility] [address] [place] [address] Dr. Ibis Jimenez URINE MICROSCOPIC ONLYon BACTERIA NONE SEEN Normal NONE SEEN [facility] Comment on above: Performed By: #### A CET SALYC #### [facility] [address] [place] [address] Dr. Ibis Jimenez Bacteria identified Cx Nom (U) NOT INDICATED Normal [facility] Comment on above: Performed By: #### A CET, SALYC #### [facility] [address] [place] [address] Dr. Ibis Jimenez CAST NONE SEEN Normal NONE SEEN [facility] Comment on above: Performed By: #### A CET, SALYC #### [facility] [address] [place] [address] Dr. Ibis Jimenez Crystals LM Nom (Urine sed) NONE SEEN Normal NONE SEEN [facility] Comment on above: Performed By: #### A CET, SALYC #### [facility] [address] [place] [address] Dr. Ibis Jimenez Epithelial cells LM Ql (Urine sed) FEW Abnormal NONE SEEN /RARE [facility] Comment on above: Performed By: #### A CET, SALYC #### [facility] [address] [place] [address] Dr. Ibis Jimenez MUCOUS NONE SEEN Normal NONE SEEN [facility] Comment on above: Performed By: #### A CET, SALYC #### [facility] [address] [place] [address] Dr. Ibis Jimenez RBC NONE SEEN Abnormal 0-[address] [facility] Comment on above: Performed By: #### A CET, SALYC #### [facility] [address] [place] [address] Dr. Ibis Jimenez WBC NONE SEEN Normal NONE SEEN [facility] Comment on above: Performed By: #### A CET, SALYC #### [facility] [address] [place] [address] Dr. Ibis Jimenez CBC AUTO DIFFon 01-07-2022 BASO # 0.0 103/ul Normal 0.0-0.[address] [facility] Comment on above: Performed By: #### A CET, SALYC #### [facility] [address] [place] [address] Dr. Ibis Jimenez Basophils/100 WBC (Bld) 0.2 % Normal 0.2-2.0 [facility] Comment on above: Performed By: #### A CET, SALYC #### [facility] [address] [place] [address] Dr. Ibis Jimenez EO # 0.0 103/ul Normal 0.0-0.[address] [facility] Comment on above: Performed By: #### A CET, SALYC #### [facility] [address] [place] [address] Dr. Ibis Jimenez Eosinophils/100 WBC (Bld) 0.4 % Critically low 0.9-7.[address] [facility] Comment on above: Performed By: #### A CET, SALYC #### [facility] [address] [address] [address] Ibis Jimenez Erythrocyte distribution width (RBC) [Ratio] 13.2 % Normal 11.0-15.[address] [facility] Comment on above: Performed By: #### A CET, SALYC #### [facility] [address] [place] [address] Dr. Ibis Jimenez Hematocrit (Bld) [Volume fraction] 39.7 % Normal 36.0-48.[address] [facility] Comment on above: Performed By: #### A CET, SALYC #### [facility] [address] [place] [address] Dr. Ibis Jimenez Hemoglobin (Bld) [Mass/Vol] 13.4 g/dL Normal 12.0-16.[address] [facility] Comment on above: Performed By: #### A CET, SALYC #### [facility] [address] [place] [address] Dr. Ibis Jimenez IG # 0.06 10e3/ul Critically high 0.00-0.03 [facility] Comment on above: Performed By: #### A CET, SALYC #### [facility] [address] [place] [address] Dr. Ibis Jimenez IG % 0.5 % Normal 0.0-0.[address] [facility] Comment on above: Performed By: #### A CET, SALYC #### [facility] [address] [place] [address] Dr. bIis Jimenez LYMPH # 2.6 103/ul Normal 1.2-3.[address] [facility] Comment on above: Performed By: #### A CET, SALYC #### [facility] [address] [place] [address] Dr. Ibis Jimenez Lymphocytes/100 WBC (Bld) 23.8 % Normal 20.5-60.[address] [facility] Comment on above: Performed By: #### A CET, SALYC #### [facility] [address] [place] [address] Dr. Ibis Jimenez MANUAL DIFF REQ NO Normal [facility] Comment on above: Performed By: #### A CET, SALYC #### [facility] [address] [place] [address] Dr. Ibis Jimenez MCH (RBC) [Entitic mass] 28.8 pg Normal 26.7-34.[address] [facility] Comment on above: Performed By: #### A CET, SALYC #### [facility] [address] [place] [address] Dr. Ibis Jimenez MCHC (RBC) [Mass/Vol] 33.8 g/dL Normal 29.9-35.[address] [facility] Comment on above: Performed By: #### A CET, SALYC #### [facility] [address] [place] [address] Dr. Ibis Jimenez MCV (RBC) [Entitic vol] 85.2 fL Normal 81.0-99.0 [facility] Comment on above: Performed By: #### A CET, SALYC #### [facility] [address] [place] [address] Dr. Ibis Jimenez MONO # 0.8 103/ul Normal 0.3-0.[address] [facility] Comment on above: Performed By: #### A CET, SALYC #### [facility] [address] [place] [address] Dr. Ibis Jimenez Monocytes/100 WBC (Bld) 7.7 % Normal 1.7-12.0 [facility] Comment on above: Performed By: #### A CET, SALYC #### [facility] [address] [place] [address] Dr. Ibis Jimenez NEUT # 7.4 103/ul Critically high 1.4-6.5 [facility] Comment on above: Performed By: #### A CET, SALYC #### [facility] [address] [place] [address] Dr. Ibis Jimenez Neutrophils/100 WBC (Bld) 67.4 % Normal 43.0-75.[address] [facility] Comment on above: Performed By: #### A CET, SALYC #### [facility] [address] [place] [address] Dr. Ibis Jimenez Platelet mean volume (Bld) [Entitic vol] 9.8 fL Normal 9.5-13.[address] [facility] Comment on above: Performed By: #### A CET, SALYC #### [facility] [address] [place] [address] Dr. Ibis Jimenez PLT 261 103/ul Normal 150-[address] [facility] Comment on above: Performed By: #### A CET, SALYC #### [facility] [address] [place] [address] Dr. Ibis Jimenez RBC 4.66 106/ul Normal 4.20-5.[address] [facility] Comment on above: Performed By: #### A CET, SALYC #### [facility] [address] [place] [address] Dr. Ibis Jimenez WBC 10.9 103/ul Normal 4.0-11.[address] [facility] Comment on above: Performed By: #### A CET, SALYC #### [facility] [address] [place] [address] Dr. Ibis Jimenez PROF CHEM 8 (BAS METB)on Anion gap [Moles/Vol] 14.1 mmol/L Normal [facility] Comment on above: Performed By: #### B MP #### [facility] [address] [place] [address] Dr. Ibis Jimenez Calcium [Mass/Vol] 8.5 mg/dL Normal 8.5-10.1 [facility] Comment on above: Performed By: #### B MP #### [facility] [address] [place] [address] Dr. Ibis Jimenez Chloride [Moles/Vol] 103 mmol/L Normal 98-[address] [facility] Comment on above: Performed By: #### B MP #### [facility] [address] [place] [address] Dr. Ibis Jimenez CO2 [Moles/Vol] 22.5 mmol/L Normal 21.0-32.0 [facility] Comment on above: Performed By: #### B MP #### [facility] [address] [place] [address] Dr. Ibis Jimenez Creatinine [Mass/Vol] 0.64 mg/dL Normal 0.55-1.[address] [facility] Comment on above: Performed By: #### B MP #### [facility] [address] [place] [address] Dr. Ibis Jimenez EGFR-AF CITIZEN OF [place] >60 Normal >=60 [facility] Comment on above: Performed By: #### B MP #### [facility] [address] [place] [address] Dr. Ibis Jimenez EGFR-NON AF CITIZEN OF [place] >60 Normal >=[address] [facility] Comment on above: Performed By: #### B MP #### [facility] [address] [address] [address] Ibis Jimenez Glucose [Mass/Vol] 141 mg/dL Critically high 74-106 T [facility] Comment on above: Performed By: #### B MP #### [facility] [address] [place] [address] Dr. Ibis Jimenez Potassium [Moles/Vol] 3.6 mmol/L Normal 3.5-5.[address] [facility] Comment on above: Performed By: #### B MP #### [facility] [address] [place] [address] Dr. Ibis Jimenez Sodium [Moles/Vol] 136 mmol/L Normal 136-145 [facility] Comment on above: Performed By: #### B MP #### [facility] [address] [place] [address] Dr. Ibis Jimenez Urea nitrogen [Mass/Vol] 16.0 mg/dL Normal 7.0-18.[address] [facility] Comment on above: Performed By: #### B MP #### [facility] [address] [place] [address] Dr. Ibis Jimenez Urea nitrogen/Creatinine [Mass ratio] 25.0 mg/mg Normal [facility] Comment on above: Performed By: #### B MP #### [facility] [address] [place] [address] Dr. Ibis Jimenez CBC AUTO DIFFon 11-04-2021 BASO # 0.0 103/ul Normal 0.0-0.[address] [facility] Comment on above: Performed By: #### A CET, SALYC #### [facility] [address] [place] [address] Dr. Ibis Jimenez Basophils/100 WBC (Bld) 0.4 % Normal 0.2-2.0 [facility] Comment on above: Performed By: #### A CET, SALYC #### [facility] [address] [place] [address] Dr. Ibis Jimenez EO # 0.2 103/ul Normal 0.0-0.[address] [facility] Comment on above: Performed By: #### A CET, SALYC #### [facility] [address] [place] [address] Dr. Ibis Jimenez Eosinophils/100 WBC (Bld) 4.1 % Normal 0.9-7.[address] [facility] Comment on above: Performed By: #### A CET, SALYC #### [facility] [address] [place] [address] Dr. Ibis Jimenez Erythrocyte distribution width (RBC) [Ratio] 13.2 % Normal 11.0-15.[address] [facility] Comment on above: Performed By: #### A CET, SALYC #### [facility] [address] [place] [address] Dr. Ibis Jimenez Hematocrit (Bld) [Volume fraction] 34.3 % Critically low 36.0-48.[address] [facility] Comment on above: Performed By: #### A CET, SALYC #### [facility] [address] [place] [address] Dr. Ibis Jimenez Hemoglobin (Bld) [Mass/Vol] 11.5 g/dL Critically low 12.0-16.[address] [facility] Comment on above: Performed By: #### A CET, SALYC #### [facility] [address] [place] [address] Dr. Ibis Jimenez IG # 0.01 10e3/ul Normal 0.00-0.[address] [facility] Comment on above: Performed By: #### A CET, SALYC #### [facility] [address] [place] [address] Dr. Ibis Jimenez IG % 0.2 % Normal 0.0-0.[address] [facility] Comment on above: Performed By: #### A CET, SALYC #### [facility] [address] [place] [address] Dr. Ibis Jimenez LYMPH # 1.5 103/ul Normal 1.2-3.[address] [facility] Comment on above: Performed By: #### A CET, SALYC #### [facility] [address] [place] [address] Dr. Ibis Jimenez Lymphocytes/100 WBC (Bld) 26.4 % Normal 20.5-60.[address] [facility] Comment on above: Performed By: #### A CET, SALYC #### [facility] [address] [place] [address] Dr. Ibis Jimenez MANUAL DIFF REQ NO Normal [facility] Comment on above: Performed By: #### A CET, SALYC #### [facility] [address] [place] [address] Dr. Ibis Jimenez MCH (RBC) [Entitic mass] 28.8 pg Normal 26.7-34.[address] [facility] Comment on above: Performed By: #### A CET, SALYC #### [facility] [address] [place] [address] Dr. Ibis Jimenez MCHC (RBC) [Mass/Vol] 33.5 g/dL Normal 29.9-35.[address] [facility] Comment on above: Performed By: #### A CET, SALYC #### [facility] [address] [place] [address] Dr. Ibis Jimenez MCV (RBC) [Entitic vol] 86.0 fL Normal 81.0-99.0 [facility] Comment on above: Performed By: #### A CET, SALYC #### [facility] [address] [place] [address] Dr. Ibis Jimenez MONO # 0.5 103/ul Normal 0.3-0.[address] [facility] Comment on above: Performed By: #### A CET, SALYC #### [facility] [address] [address] [address] Ibis Jimenez Monocytes/100 WBC (Bld) 8.2 % Normal 1.7-12.0 [facility] Comment on above: Performed By: #### A CET, SALYC #### [facility] [address] [place] [address] Dr. Ibis Jimenez NEUT # 3.4 103/ul Normal 1.4-6.[address] [facility] Comment on above: Performed By: #### A CET, SALYC #### [facility] [address] [place] [address] Dr. Ibis Jimenez Neutrophils/100 WBC (Bld) 60.7 % Normal 43.0-75.[address] [facility] Comment on above: Performed By: #### A CET, SALYC #### [facility] [address] [place] [address] Dr. Ibsi Jimenez Platelet mean volume (Bld) [Entitic vol] 9.9 fL Normal 9.5-13.[address] [facility] Comment on above: Performed By: #### A CET, SALYC #### [facility] [address] [place] [address] Dr. Ibis Jimenez PLT 222 103/ul Normal 150-[address] [facility] Comment on above: Performed By: #### A CET, SALYC #### [facility] [address] [place] [address] Dr. Ibis Jimenez RBC 3.99 106/ul Critically low 4.20-5.40 [facility] Comment on above: Performed By: #### A CET, SALYC #### [facility] [address] [place] [address] Dr. Ibis Jimenez WBC 5.6 103/ul Normal 4.0-11.[address] [facility] Comment on above: Performed By: #### A CET, SALYC #### [facility] [address] [place] [address] Dr. Ibis Jimenez PROF CHEM 8 (BAS METB)on Anion gap [Moles/Vol] 10.5 mmol/L Normal [facility] Comment on above: Performed By: #### B MP #### [facility] [address] [address] [address] Ibis Jimenez Calcium [Mass/Vol] 8.8 mg/dL Normal 8.5-10.1 [facility] Comment on above: Performed By: #### B MP #### [facility] [address] [address] [address] Ibis Jimenez Chloride [Moles/Vol] 105 mmol/L Normal 98-[address] [facility] Comment on above: Performed By: #### B MP #### [facility] [address] [address] [address] Ibis Jimenez CO2 [Moles/Vol] 24.9 mmol/L Normal 21.0-32.0 [facility] Comment on above: Performed By: #### B MP #### [facility] [address] [address] [address] Ibis Jimenez Creatinine [Mass/Vol] 0.71 mg/dL Normal 0.55-1.[address] [facility] Comment on above: Performed By: #### B MP #### [facility] [address] [address] [address] Ibis Jimenez EGFR-AF CITIZEN OF [place] >60 Normal >=60 [facility] Comment on above: Performed By: #### B MP #### [facility] [address] [address] [address] Ibis Jimenez EGFR-NON AF CITIZEN OF [place] >60 Normal >=60 [facility] Comment on above: Performed By: #### B MP #### [facility] [address] [address] [address] Ibis Jimenez Glucose [Mass/Vol] 103 mg/dL Normal 74-106 [facility] Comment on above: Performed By: #### B MP #### [facility] [address] [address] [address] Ibis Jimenez Potassium [Moles/Vol] 3.4 mmol/L Critically low 3.5-5.[address] [facility] Comment on above: Performed By: #### B MP #### [facility] [address] [place], [place] [address] Dr. Ibis Jimenez Sodium [Moles/Vol] 137 mmol/L Normal 136-145 [facility] Comment on above: Performed By: #### B MP #### [facility] [address] [place], [place] [address] Dr. Ibis Jimenez Urea nitrogen [Mass/Vol] 17.0 mg/dL Normal 7.0-18.[address] [facility] Comment on above: Performed By: #### B MP #### [facility] [address] [place], [place] [address] Dr. Ibis Jimenez Urea nitrogen/Creatinine [Mass ratio] 23.9 mg/mg Normal [facility] Comment on above: Performed By: #### B MP #### [facility] [address] [place], [place] [address] Dr. Ibis Jimenez Basic Metab w/rfx MGon 10-20 (cont.) Normal [facility] Comment on above: Result Comment: Aver age GFR for 20-29 years old: 116 mL/min/1.73sq m Chronic Kidney Disease: <60 mL/min/1.73sq m Kidney failure: <15 mL/min/1.73sq m eGFR calculated using average adult body mass. Additional eGFR calculator available at: http://www.[employer]/multiple_crcl_2012.htm Performed By: #### B MPX #### [facility] [address] [place] [address] Employment Specialist/Program Manager: Tavon Nicole MD Anion gap [Moles/Vol] 10 mmol/L Normal 9-17 [facility] Comment on above: Performed By: #### B MPX #### [facility] [address] [place] [address] [id number] Employment Specialist/Program Manager: Tavon Nicole MD Calcium [Mass/Vol] 7.8 mg/dL Low 8.6-10.4 [facility] Comment on above: Performed By: #### B MPX #### [address] [address] Employment Specialist/Program Manager: Tavon Nicole MD Chloride [Moles/Vol] 109 mmol/L High 98-107 [facility] Comment on above: Performed By: #### B MPX #### [facility] [address] [place] [id number] Employment Specialist/Program Manager: Tavon Nicole MD CO2 [Moles/Vol] 20 mmol/L Normal 20-31 [facility] Comment on above: Performed By: #### B MPX #### [address] [address] Employment Specialist/Program Manager: Tavon Nicole MD Creatinine [Mass/Vol] 0.45 mg/dL Low 0.50-0.90 [facility] Comment on above: Performed By: #### B MPX #### [address] [address] Employment Specialist/Program Manager: Tavon Nicole MD GFR, Amer >60 Normal >60 [facility] Comment on above: Performed By: #### B MPX #### [address] [address] Employment Specialist/Program Manager: Tavon Nicole MD GFR,non Amer >60 Normal >60 [facility] Comment on above: Performed By: #### B MPX #### [address] [address] Employment Specialist/Program Manager: Tavon Nicole MD Glucose [Mass/Vol] 84 mg/dL Normal 70-99 [facility] Comment on above: Performed By: #### B MPX #### [address] [address] Employment Specialist/Program Manager: Tavon Nicole MD Potassium [Moles/Vol] 4.1 mmol/L Normal 3.7-5.3 [facility] Comment on above: Result Comment: SPEC IMEN SLIGHTLY HEMOLYZED, RESULTS MAY BE ADVERSELY AFFECTED. Performed By: #### B MPX #### [facility] [address] [place], [place] [id number] Employment Specialist/Program Manager: Tavon Nicole MD Sodium [Moles/Vol] 139 mmol/L Normal 135-144 [facility] Comment on above: Performed By: #### B MPX #### [facility] [address] [place], [place] [id number] Employment Specialist/Program Manager: Tavon Nicole MD Urea nitrogen [Mass/Vol] 8 mg/dL Normal 6-20 [facility] Comment on above: Performed By: #### B MPX #### [facility] [address] [place], [place] [id number] Employment Specialist/Program Manager: Tavon Nicole MD Basic Metabolic Panel w/ Ref rossi to MGon 10-20-2021 Anion gap [Moles/Vol] 10 mmol/L 9 - 17 mmol/L [facility] Calcium [Mass/Vol] 7.8 mg/dL Low 8.6 - 10. 4 mg/dL [facility] Chloride [Moles/Vol] 109 mmol/L High 98 - 10 7 mmol/L [facility] CO2 [Moles/Vol] 20 mmol/L 20 - 31 mmol/L [facility] Creatinine [Mass/Vol] 0.45 mg/dL Low 0.5 - 0.9 mg/dL [facility] GFR >60 60 - PI NF mL/min [facility] GFR Non- >60 60 - PINF mL/min [facility] GFR/1.73 sq M.predicted MDRD (S/P/Bld) [Vol rate/Area] [facility] Comment on above: Average GFR for 20-2 9 years old: 116 mL/min/1.73sq m Chronic Kidney Disease: <60 mL/min/1.73sq m Kidney failure: <15 mL/min/1.73sq m eGFR calculated using average adult body mass. Additional eGFR calculator available at: http://www.Bellstrike.Arriendas.cl/multiple_crcl_2012.htm Glucose [Mass/Vol] 84 mg/dL 70 - 99 mg/dL [facility] Interpretation and review of laboratory results Abnormal [facility] Potassium [Moles/Vol] 4.1 mmol/L 3.7 - 5.3 mmol/L [facility] Comment on above: SPECIMEN SLIGHTLY HE MOLYZED, RESULTS MAY BE ADVERSELY AFFECTED. Sodium [Moles/Vol] 139 mmol/L 135 - 144 mmol/L [facility] Urea nitrogen (BldV) [Mass/Vol] 8 mg/dL 6 - 20 mg/dL [facility] CBC with Auto Differentialon 10-20-2021 Absolute Eos # 0.15 [facility] Absolute Immature Granulocyte [facility] Absolute Lymph # 1.48 [facility] Absolute [place] # 0.28 [facility] Basophils (Bld) [#/Vol] 0.03 10*3/uL [facility] Basophils/100 WBC (Bld) 1 % 0 - 2 % B ON [facility] Eosinophils/100 WBC (Bld) 3 % 1 - 4 % [facility] Hematocrit (Bld) [Volume fraction] 35.5 % Low 36.3 - 47.1 % [facility] Hemoglobin (Bld) [Mass/Vol] 11.3 g/dL Low 11.9 - 15.1 g/dL [facility] Immature granulocytes/100 WBC (Bld) 0 % 0 [facility] Interpretation and review of laboratory results Abnormal [facility] Lymphocytes/100 WBC (Bld) 34 % 24 - 43 % [facility] MCH (RBC) [Entitic mass] 27.9 pg 25.2 - 33.5 pg [facility] MCHC (RBC) [Mass/Vol] 31.8 g/dL 28.4 - 34.8 g/dL [facility] MCV (RBC) [Entitic vol] 87.7 fL 82.6 - 102.9 fL [facility] Monocytes/100 WBC (Bld) 6 % 3 - 12 % B ON [facility] NRBC Automated 0.0 0.0 per 100 WBC [facility] Platelet distribution width (Bld) [Ratio] 12.9 % 11.8 - 14.4 % [facility] Platelets (Bld) [#/Vol] See Reflexed IPF Result [facility] RBC (Bld) [#/Vol] 4.05 10*6/uL 3.95 - 5.1 1 m/uL [facility] Segmented neutrophils/100 WBC (Bld) 55 % 36 - 65 % [facility] Segs Absolute 2.42 [facility] WBC (Bld) [#/Vol] 4.4 10*3/uL [facility] CBC with Diffon 10-20-2021 Abs. Basophil 0.03 k/uL Normal 0.00-0.20 [facility] Comment on above: Performed By: #### C DP, IPF #### [place] [address] Employment Specialist/Program Manager: Tavon Nicole MD Abs.Imm.Granulocyte <0.03 Normal 0.00-0.30 [facility] Comment on above: Performed By: #### C DP, IPF #### [place] [address] Employment Specialist/Program Manager: Tavon Nicole MD Abs.Neutrophil (Seg) 2.42 k/uL Normal 1.50-8.10 [facility] Comment on above: Performed By: #### C DP, IPF #### [place] [address] Employment Specialist/Program Manager: Tavon Nicole MD Basophils/100 WBC (Bld) 1 % Normal 0-2 [facility] Comment on above: Performed By: #### C DP, IPF #### [place] [address] Employment Specialist/Program Manager: Tavon Nicole MD Eosinophils (Bld) [#/Vol] 0.15 10*3/uL Normal 0.00-0.44 [facility] Comment on above: Performed By: #### C DP, IPF #### [address] [address] Employment Specialist/Program Manager: Tavon Nicole MD Eosinophils/100 WBC (Bld) 3 % Normal 1-4 [facility] Comment on above: Performed By: #### C DP, IPF #### [address] [address] Employment Specialist/Program Manager: Tavon Nicole MD Immature granulocytes/100 WBC (Bld) 0 % Normal 0 [facility] Comment on above: Performed By: #### C DP, IPF #### [address] [address] Employment Specialist/Program Manager: Tavon Nicole MD Lymphocytes (Bld) [#/Vol] 1.48 10*3/uL Normal 1.10-3.70 [facility] Comment on above: Performed By: #### C DP, IPF #### [address] [address] Employment Specialist/Program Manager: Tavon Nicole MD Lymphocytes/100 WBC (Bld) 34 % Normal 24-43 [facility] Comment on above: Performed By: #### C DP, IPF #### [address] [address] Employment Specialist/Program Manager: Tavon Nicole MD Monocytes (Bld) [#/Vol] 0.28 10*3/uL Normal 0.10-1.20 [facility] Comment on above: Performed By: #### C DP, IPF #### [address] [address] Employment Specialist/Program Manager: Tavon Nicole MD Monocytes/100 WBC (Bld) 6 % Normal 3-12 [facility] Comment on above: Performed By: #### C DP, IPF #### [address] [address] Employment Specialist/Program Manager: Tavon Nicole MD Neutrophil (Seg) 55 % Normal 36-65 [facility] Comment on above: Performed By: #### C DP, IPF #### [address] [address] Employment Specialist/Program Manager: Tavon Nicole MD Erythrocyte distribution width (RBC) [Ratio] 12.9 % Normal 11.8-14.4 [facility] Comment on above: Performed By: #### C DP, IPF #### [address] [address] Employment Specialist/Program Manager: Tavon Nicole MD Hematocrit (Bld) [Volume fraction] 35.5 % Low 36.3-47.1 [facility] Comment on above: Performed By: #### C DP, IPF #### [address] [address] Employment Specialist/Program Manager: Tavon Nicole MD Hemoglobin (Bld) [Mass/Vol] 11.3 g/dL Low 11.9-15.1 [facility] Comment on above: Performed By: #### C DP, IPF #### [address] [address] Employment Specialist/Program Manager: Tavon Nicole MD MCH (RBC) [Entitic mass] 27.9 pg Normal 25.2-33.5 [facility] Comment on above: Performed By: #### C DP, IPF #### [address] [address] Employment Specialist/Program Manager: Tavon Nicole MD MCHC (RBC) [Mass/Vol] 31.8 g/dL Normal 28.4-34.8 [facility] Comment on above: Performed By: #### C DP, IPF #### [address] [address] Employment Specialist/Program Manager: Tavon Nicole MD MCV (RBC) [Entitic vol] 87.7 fL Normal 82.6-102.9 [facility] Comment on above: Performed By: #### C DP, IPF #### [address] [address] Employment Specialist/Program Manager: Tavon Nicole MD NRBC Automated 0.0 per 100 WBC Normal 0.0 [facility] Comment on above: Performed By: #### C DP, IPF #### [address] [address] Employment Specialist/Program Manager: Tavon Nicole MD Platelet Count See Reflexed IPF Result Normal 138-453 [facility] Comment on above: Performed By: #### C DP, IPF #### [address] [address] Employment Specialist/Program Manager: Tavon Nicole MD RBC (Bld) [#/Vol] 4.05 10*6/uL Normal 3.95-5.11 [facility] Comment on above: Performed By: #### C DP, IPF #### [address] [address] Employment Specialist/Program Manager: Tavon Nicole MD WBC (Bld) [#/Vol] 4.4 10*3/uL Normal 3.5-11.3 [facility] Comment on above: Performed By: #### C DP, IPF #### [address] [address] Employment Specialist/Program Manager: Tavon Nicole MD EEG video monitoringon 10-20 Raiza Land MD 10/20/2021 12:11 PM Referring physician: Chris Blanchard APRN Date:10/20/2021 Start Time:10/19/2021 @1258 End Time: 10/20/2021 @ 1200 Indication Patient with recurrent events Introduction This continuous video-EEG was acquired using a [employer] workstation at 256 samples/s. Electrodes were placed [...] Board Certified. Neurology Board Certified. Electronically Signed [facility] Work Phone: EEG video monitoringOrdered By: Raiza Land on 10-20-2021 [facility] Work Phone: Immature Platelet Fractionon 10-20-2021 Platelet, Fluorescence Platelet clumps present, count appears adequate. [facility] PLT, Immature Fract.on 10-20 Platelet, Fluoresc. Platelet clumps present, count appears adequate. Normal 138-453 [facility] Comment on above: Performed By: #### C DP, IPF #### [facility] [address] [place] [address] Employment Specialist/Program Manager: Tavon Nicole MD PROLACTINon 10-20-2021 Prolactin 41.7 ng/mL Critically high 4.8-23.[address] [facility] Comment on above: Performed By: #### C VDTBH #### [facility] [address] [place], [place] [address] Dr. Ibis Jimenez CBCon 10-19-2021 Erythrocyte distribution width (RBC) [Ratio] 12.9 % Normal 11.8-14.4 [facility] Comment on above: Performed By: #### T ROPI, LACTIC, CMPX, CBC #### [facility] [address] [place] [address] Employment Specialist/Program Manager: Tavon Nicole MD Hematocrit (Bld) [Volume fraction] 31.5 % Low 36.3-47.1 [facility] Comment on above: Performed By: #### T ROPI, LACTIC, CMPX, CBC #### [facility] [address] [place] [address] Employment Specialist/Program Manager: Tavon Nicole MD Hemoglobin (Bld) [Mass/Vol] 10.8 g/dL Low 11.9-15.1 [facility] Comment on above: Performed By: #### T ROPI, LACTIC, CMPX, CBC #### [address] [address] Employment Specialist/Program Manager: Tavon Nicole MD MCH (RBC) [Entitic mass] 29.1 pg Normal 25.2-33.5 [facility] Comment on above: Performed By: #### T ROPI, LACTIC, CMPX, CBC #### [facility] [address] [place] [address] Employment Specialist/Program Manager: Tavon Nicole MD MCHC (RBC) [Mass/Vol] 34.3 g/dL Normal 28.4-34.8 [facility] Comment on above: Performed By: #### T ROPI, LACTIC, CMPX, CBC #### [facility] [address] [place] [address] Employment Specialist/Program Manager: Tavon Nicole MD MCV (RBC) [Entitic vol] 84.9 fL Normal 82.6-102.9 [facility] Comment on above: Performed By: #### T ROPI, LACTIC, CMPX, CBC #### [facility] [address] [place] [phone] Employment Specialist/Program Manager: Tavon Nicole MD NRBC Automated 0.0 per 100 WBC Normal 0.0 [facility] Comment on above: Performed By: #### T ROPI, LACTIC, CMPX, CBC #### [facility] [address] [place] [address] Employment Specialist/Program Manager: Tavon Nicole MD Platelet mean volume (Bld) [Entitic vol] 9.8 fL Normal 8.1-13.5 [facility] Comment on above: Performed By: #### T ROPI, LACTIC, CMPX, CBC #### [facility] [address] [place] [address] Employment Specialist/Program Manager: Tavon Nicole MD Platelets (Bld) [#/Vol] 281 10*3/uL Normal 138-453 [facility] Comment on above: Performed By: #### T ROPI, LACTIC, CMPX, CBC #### [facility] [address] [place] [address] Employment Specialist/Program Manager: Tavon Nicole MD RBC (Bld) [#/Vol] 3.71 10*6/uL Low 3.95-5.11 [facility] Comment on above: Performed By: #### T ROPI, LACTIC, CMPX, CBC #### [facility] [address] [place] [address] Employment Specialist/Program Manager: Tavon Nicole MD WBC (Bld) [#/Vol] 5.0 10*3/uL Normal 3.5-11.3 [facility] Comment on above: Performed By: #### T ROPI, LACTIC, CMPX, CBC #### [facility] [address] [place] [address] Employment Specialist/Program Manager: Tavon Nicole MD Hematocrit (Bld) [Volume fraction] 31.5 % Low 36.3 - 47.1 % [facility] Hemoglobin (Bld) [Mass/Vol] 10.8 g/dL Low 11.9 - 15.1 g/dL [facility] Interpretation and review of laboratory results Abnormal [facility] MCH (RBC) [Entitic mass] 29.1 pg 25.2 - 33.5 pg [facility] MCHC (RBC) [Mass/Vol] 34.3 g/dL 28.4 - 34.8 g/dL [facility] MCV (RBC) [Entitic vol] 84.9 fL 82.6 - 102.9 fL [facility] NRBC Automated 0.0 0.0 per 100 WBC [facility] Platelet distribution width (Bld) [Ratio] 12.9 % 11.8 - 14.4 % [facility] Platelet mean volume (Bld) [Entitic vol] 9.8 fL 8.1 - 13.5 fL [facility] Platelets (Bld) [#/Vol] 281 10*3/uL [facility] RBC (Bld) [#/Vol] 3.71 10*6/uL Low 3.95 - 5.1 1 m/uL [facility] WBC (Bld) [#/Vol] 5.0 10*3/uL [facility] CBC AUTO DIFFon 10-19-2021 EO # 0.2 103/ul Normal 0.0-0.[address] [facility] Comment on above: Performed By: #### A MM #### [facility] [address] [place] [address] Dr. Ibis Jimenez Eosinophils/100 WBC (Bld) 3.9 % Normal 0.9-7.0 [facility] Comment on above: Performed By: #### A MM #### [facility] [address] [address] [address] Ibis Jimenez Erythrocyte distribution width (RBC) [Ratio] 13.1 % Normal 11.0-15.[address] [facility] Comment on above: Performed By: #### A MM #### [facility] [address] [place] [address] Dr. Ibis Jimenez Hematocrit (Bld) [Volume fraction] 33.4 % Critically low 36.0-48.[address] [facility] Comment on above: Performed By: #### A MM #### [facility] [address] [place] [address] Dr. Ibis Jimenez Hemoglobin (Bld) [Mass/Vol] 11.1 g/dL Critically low 12.0-16.[address] [facility] Comment on above: Performed By: #### A MM #### [facility] [address] [place] [address] Dr. Ibis Jimenez LYMPH # 1.2 103/ul Normal 1.2-3.[address] [facility] Comment on above: Performed By: #### A MM #### [facility] [address] [place] [address] Dr. Ibis Jimenez Lymphocytes/100 WBC (Bld) 25.9 % Normal 20.5-60.[address] [facility] Comment on above: Performed By: #### A MM #### [facility] [address] [place] [address] Dr. Ibis Jimenez MCHC (RBC) [Mass/Vol] 33.2 g/dL Normal 29.9-35.[address] [facility] Comment on above: Performed By: #### A MM #### [facility] [address] [place] [address] Dr. Ibis Jimenez MCV (RBC) [Entitic vol] 85.9 fL Normal 81.0-99.0 [facility] Comment on above: Performed By: #### A MM #### [facility] [address] [place] [address] Dr. Ibis Jimenez Monocytes/100 WBC (Bld) 7.7 % Normal 1.7-12.0 [facility] Comment on above: Performed By: #### A MM #### [facility] [address] [place] [address] Dr. Ibis Jimenez NEUT # 2.9 103/ul Normal 1.4-6.[address] [facility] Comment on above: Performed By: #### A MM #### [facility] [address] [place] [address] Dr. Ibis Jimenez Neutrophils/100 WBC (Bld) 61.5 % Normal 43.0-75.[address] [facility] Comment on above: Performed By: #### A MM #### [facility] [address] [place] [address] Dr. Ibis Jimenez PLT 264 103/ul Normal 150-[address] [facility] Comment on above: Performed By: #### A MM #### [facility] [address] [place] [address] Dr. Ibis Jimenez RBC 3.89 106/ul Critically low 4.20-5.40 [facility] Comment on above: Performed By: #### A MM #### [facility] [address] [place] [address] Dr. Ibis Jimenez WBC 4.7 103/ul Normal 4.0-11.[address] [facility] Comment on above: Performed By: #### A MM #### [facility] [address] [place] [address] Dr. Ibis Jimenez BASO # 0.0 103/ul Normal 0.0-0.[address] [facility] Comment on above: Performed By: #### A MM #### [facility] [address] [place] [address] Dr. Ibis Jimenez Performed By: #### C VDTBH #### [facility] [address] [place] [address] Dr. Ibis Jimenez Basophils/100 WBC (Bld) 0.6 % Normal 0.2-2.0 [facility] Comment on above: Performed By: #### A MM #### [facility] [address] [place] [address] Dr. Ibis Jimenez Performed By: #### C VDTBH #### [facility] [address] [place] [address] Dr. Ibis Jimenez EO # 0.3 103/ul Normal 0.0-0.[address] [facility] Comment on above: Performed By: #### C VDTBH #### [facility] [address] [place] [address] Dr. Ibis Jimenez Eosinophils/100 WBC (Bld) 5.0 % Normal 0.9-7.[address] [facility] Comment on above: Performed By: #### C VDTBH #### [facility] [address] [place] [address] Dr. Ibis Jimenez Erythrocyte distribution width (RBC) [Ratio] 12.8 % Normal 11.0-15.[address] [facility] Comment on above: Performed By: #### C VDTBH #### [facility] [address] [place] [address] Dr. Ibis Jimenez Hematocrit (Bld) [Volume fraction] 38.0 % Normal 36.0-48.[address] [facility] Comment on above: Performed By: #### C VDTBH #### [facility] [address] [place] [address] Dr. Ibis Jimenez Hemoglobin (Bld) [Mass/Vol] 12.7 g/dL Normal 12.0-16.[address] [facility] Comment on above: Performed By: #### C VDTBH #### [facility] [address] [place] [address] Dr. Ibis Jimenez IG # 0.02 10e3/ul Normal 0.00-0.[address] [facility] Comment on above: Performed By: #### A MM #### [facility] [address] [place] [address] Dr. Ibis Jimenez Performed By: #### C VDTBH #### [facility] [address] [place] [address] Dr. Ibis Jimenez IG % 0.4 % Normal 0.0-0.[address] [facility] Comment on above: Performed By: #### A MM #### [facility] [address] [place] [address] Dr. Ibis Jimenez Performed By: #### C VDTBH #### [facility] [address] [place] [address] Dr. Ibis Jimenez LYMPH # 1.7 103/ul Normal 1.2-3.[address] [facility] Comment on above: Performed By: #### C VDTBH #### [facility] [address] [place] [address] Dr. Ibis Jimenez Lymphocytes/100 WBC (Bld) 30.7 % Normal 20.5-60.[address] [facility] Comment on above: Performed By: #### C VDTBH #### [facility] [address] [place] [address] Dr. Ibis Jimenez MANUAL DIFF REQ NO Normal [facility] Comment on above: Performed By: #### A MM #### [facility] [address] [place] [address] Dr. Ibis Jimenez Performed By: #### C VDTBH #### [facility] [address] [place] [address] Dr. Ibis Jimenez MCH (RBC) [Entitic mass] 28.5 pg Normal 26.7-34.[address] [facility] Comment on above: Performed By: #### A MM #### [facility] [address] [place] [address] Dr. Ibis Jimenez Performed By: #### C VDTBH #### [facility] [address] [place] [address] Dr. Ibis Jimenez MCHC (RBC) [Mass/Vol] 33.4 g/dL Normal 29.9-35.[address] [facility] Comment on above: Performed By: #### C VDTBH #### [facility] [address] [place] [address] Dr. Ibis Jimenez MCV (RBC) [Entitic vol] 85.2 fL Normal 81.0-99.0 [facility] Comment on above: Performed By: #### C VDTBH #### [facility] [address] [place] [address] Dr. Ibis Jimenez MONO # 0.4 103/ul Normal 0.3-0.[address] [facility] Comment on above: Performed By: #### A MM #### [facility] [address] [place] [address] Dr. Ibis Jimenez Performed By: #### C VDTBH #### [facility] [address] [place] [address] Dr. Ibis Jimenez Monocytes/100 WBC (Bld) 8.1 % Normal 1.7-12.0 [facility] Comment on above: Performed By: #### C VDTBH #### [facility] [address] [place] [address] Dr. Ibis Jimenez NEUT # 3.0 103/ul Normal 1.4-6.[address] [facility] Comment on above: Performed By: #### C VDTBH #### [facility] [address] [place] [address] Dr. Ibis Jimenez Neutrophils/100 WBC (Bld) 55.2 % Normal 43.0-75.[address] [facility] Comment on above: Performed By: #### C VDTBH #### [facility] [address] [place] [address] Dr. Ibis Jimenez Platelet mean volume (Bld) [Entitic vol] 9.5 fL Normal 9.5-13.[address] [facility] Comment on above: Performed By: #### A MM #### [facility] [address] [place] [address] Dr. Ibis Jimenez Performed By: #### C VDTBH #### [facility] [address] [place] [address] Dr. Ibis Jimenez PLT 343 103/ul Normal 150-450 [facility] Comment on above: Performed By: #### C VDTBH #### [facility] [address] [place] [address] Dr. Ibis Jimenez RBC 4.46 106/ul Normal 4.20-5.40 [facility] Comment on above: Performed By: #### C VDTBH #### [facility] [address] [place] [address] Dr. Ibis Jimenez WBC 5.4 103/ul Normal 4.0-11.[address] [facility] Comment on above: Performed By: #### C VDTBH #### [facility] [address] [place] [address] HEAD WO CONon [...] by: LOPEZ REYNOLDS Date: 2021-10-19 07:[address] [facility] Comp Metabolic Pr/rfx MGon 0 10-19-2021 (cont.) Normal [facility] Comment on above: Result Comment: Aver age GFR for 20-29 years old: 116 mL/min/1.73sq m Chronic Kidney Disease: <60 mL/min/1.73sq m Kidney failure: <15 mL/min/1.73sq m eGFR calculated using average adult body mass. Additional eGFR calculator available at: http://www.[employer]iger[employer]/multiple_crcl_2012.htm Performed By: #### T ROPI, LACTIC, CMPX, CBC #### [facility] [address] [place] [phone] Employment Specialist/Program Manager: Tavon Nicole MD Albumin [Mass/Vol] 3.5 g/dL Normal 3.5-5.2 [facility] Comment on above: Performed By: #### T ROPI, LACTIC, CMPX, CBC #### [facility] [address] [place] [address] [phone] Employment Specialist/Program Manager: Tavon Nicole MD Albumin/Glob Ratio 1.4 Normal 1.0-2.5 [facility] Comment on above: Performed By: #### T ROPI, LACTIC, CMPX, CBC #### [facility] [address] [place] [address] [phone] Employment Specialist/Program Manager: Tavon Nicole MD Alkaline Phos 69 U/L Normal 35-104 [facility] Comment on above: Performed By: #### T ROPI, LACTIC, CMPX, CBC #### [facility] [address] [place] [phone] Employment Specialist/Program Manager: Tavon Nicole MD ALT [Catalytic activity/Vol] 15 U/L Normal 5-33 [facility] Comment on above: Performed By: #### T ROPI, LACTIC, CMPX, CBC #### [address] [id number] Employment Specialist/Program Manager: Tavon Nicole MD Anion gap [Moles/Vol] 13 mmol/L Normal 9-17 [facility] Comment on above: Performed By: #### T ROPI, LACTIC, CMPX, CBC #### [address] [address] Employment Specialist/Program Manager: Tavon Nicole MD AST [Catalytic activity/Vol] 12 U/L Normal <32 [facility] Comment on above: Performed By: #### T ROPI, LACTIC, CMPX, CBC #### [address] [address] Employment Specialist/Program Manager: Tavon Nicole MD Bilirubin [Mass/Vol] 0.24 mg/dL Low 0.3-1.2 [facility] Comment on above: Performed By: #### T ROPI, LACTIC, CMPX, CBC #### [address] [address] Employment Specialist/Program Manager: Tavon Nicole MD Calcium [Mass/Vol] 8.1 mg/dL Low 8.6-10.4 [facility] Comment on above: Performed By: #### T ROPI, LACTIC, CMPX, CBC #### [facility] [address] [place] [id number] Employment Specialist/Program Manager: Tavon Nicole MD Chloride [Moles/Vol] 107 mmol/L Normal 98-107 [facility] Comment on above: Performed By: #### T ROPI, LACTIC, CMPX, CBC #### [facility] [address] [place] [phone] Employment Specialist/Program Manager: Tavon Nicole MD CO2 [Moles/Vol] 19 mmol/L Low 20-31 [facility] Comment on above: Performed By: #### T ROPI, LACTIC, CMPX, CBC #### [facility] [address] [place] [address] Employment Specialist/Program Manager: Tavon Nicole MD Creatinine [Mass/Vol] 0.53 mg/dL Normal 0.50-0.90 [facility] Comment on above: Performed By: #### T ROPI, LACTIC, CMPX, CBC #### [facility] [address] [place] [phone] Employment Specialist/Program Manager: Tavon Nicole MD GFR, Amer >60 Normal >60 [facility] Comment on above: Performed By: #### T ROPI, LACTIC, CMPX, CBC #### [facility] [address] [place] [address] Employment Specialist/Program Manager: Tavon Nicole MD GFR,non Amer >60 Normal >60 [facility] Comment on above: Performed By: #### T ROPI, LACTIC, CMPX, CBC #### [facility] [address] [place] [address] Employment Specialist/Program Manager: Tavon Nicole MD Glucose [Mass/Vol] 81 mg/dL Normal 70-99 [facility] Comment on above: Performed By: #### T ROPI, LACTIC, CMPX, CBC #### [facility] [address] [place] [address] Employment Specialist/Program Manager: Tavon Nicole MD Potassium [Moles/Vol] 3.9 mmol/L Normal 3.7-5.3 [facility] Comment on above: Performed By: #### T ROPI, LACTIC, CMPX, CBC #### [facility] [address] [place] [address] [phone] Employment Specialist/Program Manager: Tavon Nicole MD Protein [Mass/Vol] 6.0 g/dL Low 6.4-8.3 [facility] Comment on above: Performed By: #### T ROPI, LACTIC, CMPX, CBC #### [facility] [address] [place], [place] [phone] Employment Specialist/Program Manager: Tavon Nicole MD Sodium [Moles/Vol] 139 mmol/L Normal 135-144 [facility] Comment on above: Performed By: #### T ROPI, LACTIC, CMPX, CBC #### [facility] [address] [place], [place] [phone] Employment Specialist/Program Manager: Tavon Nicole MD Urea nitrogen [Mass/Vol] 10 mg/dL Normal 6-20 [facility] Comment on above: Performed By: #### T ROPI, LACTIC, CMPX, CBC #### [facility] [address] [place], [place] [phone] Employment Specialist/Program Manager: Tavon Nicole MD Comprehensive Metabolic Pane l w/ Reflex to MGon 10-19-2021 Albumin [Mass/Vol] 3.5 g/dL 3.5 - 5.2 g/dL [facility] Albumin/Globulin [Mass ratio] 1.4 {ratio} 1 - 2.5 [facility] ALP (Bld) [Catalytic activity/Vol] 69 U/L 35 - 104 U/L [facility] ALT [Catalytic activity/Vol] 15 U/L 5 - 33 U/L [facility] Anion gap [Moles/Vol] 13 mmol/L 9 - 17 mmol/L [facility] AST [Catalytic activity/Vol] 12 U/L NINF - 32 U/L [facility] Bilirubin [Mass/Vol] 0.24 mg/dL Low 0.3 - 1 .2 mg/dL [facility] Calcium [Mass/Vol] 8.1 mg/dL Low 8.6 - 10. 4 mg/dL [facility] Chloride [Moles/Vol] 107 mmol/L 98 - 10 7 mmol/L [facility] CO2 [Moles/Vol] 19 mmol/L Low 20 - 31 mmol/L [facility] Creatinine [Mass/Vol] 0.53 mg/dL 0.5 - 0.9 mg/dL [facility] Free PSA/Total PSA [Mass fraction] 6.0 g/dL Low 6.4 - 8.3 g/dL [facility] GFR >60 60 - PI NF mL/min [facility] GFR Non- >60 60 - PINF mL/min [facility] GFR/1.73 sq M.predicted MDRD (S/P/Bld) [Vol rate/Area] [facility] Comment on above: Average GFR for 20-2 9 years old: 116 mL/min/1.73sq m Chronic Kidney Disease: <60 mL/min/1.73sq m Kidney failure: <15 mL/min/1.73sq m eGFR calculated using average adult body mass. Additional eGFR calculator available at: http://www.[employer]/multiple_crcl_2012.htm Glucose [Mass/Vol] 81 mg/dL 70 - 99 mg/dL [facility] Interpretation and review of laboratory results Abnormal [facility] Potassium [Moles/Vol] 3.9 mmol/L 3.7 - 5.3 mmol/L [facility] Sodium [Moles/Vol] 139 mmol/L 135 - 144 mmol/L [facility] Urea nitrogen (BldV) [Mass/Vol] 10 mg/dL 6 - 20 mg/dL [facility] Covid-19 PCR (CVDTBH)on 09-22 SARS-CoV-2 (COVID-19) RNA SAURABH+probe Ql (Unsp spec) Not detected Normal NOT DETECTED [facility] Comment on above: Result Comment: When [...] for this test is supported by the [place] [employer]'s declaration that [...] used). Performed By: #### C VDTB #### [facility] [address] [place] [address] Dr. Ibis Jimenez DRUG SCREEN RAPID (URINE)on 10-19-2021 AMP Negative Normal NEGATIVE [facility] Comment on above: Performed By: #### B MP #### [facility] [address] [place] [address] Dr. Ibis Jimenez BAR Positive Abnormal NEGATIVE [facility] Comment on above: Performed By: #### B MP #### [facility] [address] [place] [address] Dr. Ibis Jimenez BUP Negative Normal NEGATIVE [facility] Comment on above: Performed By: #### B MP #### [facility] [address] [place] [address] Dr. Ibis Jimenez BZO Positive Abnormal NEGATIVE [facility] Comment on above: Performed By: #### B MP #### [facility] [address] [place] [address] Dr. Ibis Jimenez SEMAJ Negative Normal NEGATIVE [facility] Comment on above: Performed By: #### B MP #### [facility] [address] [place] [address] Dr. Ibis Jmienez CUT-OFFS SEE BELOW Normal [facility] Comment on above: Result Comment: AMP [...] ng/mL Performed By: #### B MP #### [facility] [address] [place] [address] Dr. Ibis Jimenez DRUG CUT HEADER DRUG CLASS TEST SYSTEM CUT-OFF CONCENTRATIONS ARE FOLLOWS: Normal [facility] Comment on above: Performed By: #### B MP #### [facility] [address] [place] [address] Dr. Ibis Jimenez mAMP Negative Normal NEGATIVE [facility] Comment on above: Performed By: #### B MP #### [facility] [address] [place] [address] Dr. Ibis Jimenez MTD Negative Normal NEGATIVE [facility] Comment on above: Performed By: #### B MP #### [facility] [address] [place] [address] Dr. Ibis Jimenez OPI Positive Abnormal NEGATIVE [facility] Comment on above: Performed By: #### B MP #### [facility] [address] [place] [address] Dr. Ibis Jimenez OXY Positive Abnormal NEGATIVE [facility] Comment on above: Performed By: #### B MP #### [facility] [address] [place] [address] Dr. Ibis Jimenez PCP Negative Normal NEGATIVE [facility] Comment on above: Performed By: #### B MP #### [facility] [address] [place] [address] Dr. Ibis Jimenez PPX Negative Normal NEGATIVE [facility] Comment on above: Performed By: #### B MP #### [facility] [address] [place] [address] Dr. Ibis Jimenez TCA Negative Normal NEGATIVE [facility] Comment on above: Performed By: #### B MP #### [facility] [address] [place] [address] Dr. Ibis Jimenez THC Negative Normal NEGATIVE [facility] Comment on above: Performed By: #### B MP #### [facility] [address] [address] [address] Ibis Jimenez ER URINE PROFILEon 2 Bilirubin Ql (U) Negative Normal NEGATIVE [facility] Comment on above: Performed By: #### B MP #### [facility] [address] [address] [address] Ibis Jimenez Clarity (U) CLEAR Normal CLEAR [facility] Comment on above: Performed By: #### B MP #### [facility] [address] [place] [address] Dr. Ibis Jimenez Color (U) YELLOW Normal YELLOW [facility] Comment on above: Performed By: #### B MP #### [facility] [address] [place] [address] Dr. Ibis RODRIGUEZ A micrscopic examination will be performed if indicated. Normal [facility] Comment on above: Performed By: #### B MP #### [facility] [address] [place] [address] Dr. Ibis Jimenez Glucose Ql (U) Negative Normal NEGATIVE [facility] Comment on above: Performed By: #### B MP #### [facility] [address] [place] [address] Dr. Ibis Jimenez Hemoglobin Ql (U) TRACE-INTACT Abnormal NEGATIVE [facility] Comment on above: Performed By: #### B MP #### [facility] [address] [address] [address] Ibis Jimenez Ketones Ql (U) Negative Normal NEGATIVE [facility] Comment on above: Performed By: #### B MP #### [facility] [address] [address] [address] Ibis Jimenez LEUKOCYTES Negative Normal NEGATIVE [facility] Comment on above: Performed By: #### B MP #### [facility] [address] [place] [address] Dr. Ibis Jimenez Nitrite Ql (U) Negative Normal NEGATIVE [facility] Comment on above: Performed By: #### B MP #### [facility] [address] [place] [address] Dr. Ibis Jimenez pH (U) 5.5 [pH] Normal 5-[address] [facility] Comment on above: Performed By: #### B MP #### [facility] [address] [place] [address] Dr. Ibis Jimenez SPEC GRAVITY >=1.030 Abnormal 1.005-<=1.[address] [place] [address] Comment on above: Performed By: #### B MP #### [facility] [address] [place] [address] Dr. Ibis Jimenez UA PROTEIN Negative Normal NEGATIVE/ TRACE [facility] Comment on above: Performed By: #### B MP #### [facility] [address] [place] [address] Dr. Ibis Jimenez UR MICRO IND INDICATED Normal [facility] Comment on above: Performed By: #### B MP #### [facility] [address] [place] [address] Dr. Ibis Jimenez Urobilinogen Qn (U) 0.2 {Dinorah'U}/dL Normal 0.2 - 1. [address] [facility] Comment on above: Performed By: #### B MP #### [facility] [address] [place] [address] Dr. Ibis Jimenez LACTATE/LACTIC ACIDon 2021 Lactate [Moles/Vol] 1.2 mmol/L Normal 0.4-1.9 [facility] Comment on above: Performed By: #### A MM #### [facility] [address] [place] [address] Dr. Ibis Jimenez Lactic Acidon 10-19-2021 Lactic Acid,Whole Bl 0.9 mmol/L Normal 0.7-2.1 [facility] Comment on above: Performed By: #### T ROPI, LACTIC, CMPX, CBC #### [facility] [address] [place], [place] [phone] Employment Specialist/Program Manager: Tavon Nicole MD Lactic Acid, Whole Blood 0.9 mmol/L 0.7 - 2.1 mmol/L [facility] MONOon 10-19-2021 Monocytes (Bld) [#/Vol] Negative Normal NEGATIVE T [facility] Comment on above: Performed By: #### M DAVID #### [facility] [address] [address] [address] Ibis Jimenez MRI BRAIN W WO [...] Carlos Marks DO 10/19/21 Final result Normal [facility] Unremarkable MR brain. [facility] RIS CONSOLIDATED EXAMINATION: MRI OF THE BRAIN [...] The soft tissues demonstrate no acute abnormality. [facility] Carlos Marks, DO - 10/19/2021 EXAMINATION: [...] no acute abnormality. IMPRESSION: Unremarkable MR brain. [employer] Phone: Radiology Study observation (narrative) [employer] Phone: MRI BRAIN W WO CONTRASTOrder ed By: Carlos Marks on 10-19-2021 [employer] Phone: PH VENOUS BLOODon 10-19-2021 PCO2 VENOUS 36.6 mmHg Critically low 40.0-52.0 [facility] Comment on above: Performed By: #### B MP #### [facility] [address] [place] [address] Dr. Ibis Jimenez pH VENOUS 7.387 Normal 7.330-7.[address] [facility] Comment on above: Performed By: #### B MP #### [facility] [address] [place] [address] Dr. Ibis Jimenez PROF CHEM 8 (BAS METB)on Anion gap [Moles/Vol] 11.9 mmol/L Normal [facility] Comment on above: Performed By: #### M DAVID #### [facility] [address] [place] [address] Dr. Ibis Jimenez Calcium [Mass/Vol] 9.1 mg/dL Normal 8.5-10.1 [facility] Comment on above: Performed By: #### M DAVDI #### [facility] [address] [place] [address] Dr. Ibis Jimenez Chloride [Moles/Vol] 104 mmol/L Normal 98-[address] [facility] Comment on above: Performed By: #### M DAVID #### [facility] [address] [place] [address] Dr. Ibis Jimenez CO2 [Moles/Vol] 26.7 mmol/L Normal 21.0-32.0 [facility] Comment on above: Performed By: #### M DAVID #### [facility] [address] [place] [address] Dr. Ibis Jimenez Creatinine [Mass/Vol] 0.78 mg/dL Normal 0.55-1.[address] [facility] Comment on above: Performed By: #### M DAVID #### [facility] [address] [place] [address] Dr. Ibis Jimenez EGFR-AF CITIZEN OF [place] >60 Normal >=60 [facility] Comment on above: Performed By: #### M DAVID #### [facility] [address] [place] [address] Dr. Ibis Jimenez EGFR-NON AF CITIZEN OF [place] >60 Normal >=[address] [facility] Comment on above: Performed By: #### M DAVID #### [facility] [address] [address] [address] Ibis Jimenez Glucose [Mass/Vol] 96 mg/dL Normal 74-106 [facility] Comment on above: Performed By: #### M DAVID #### [facility] [address] [address] [address] Ibis Jimenez Potassium [Moles/Vol] 3.6 mmol/L Normal 3.5-5.[address] [facility] Comment on above: Performed By: #### M DAVID #### [facility] [address] [address] [address] Ibis Jimenez Sodium [Moles/Vol] 139 mmol/L Normal 136-145 [facility] Comment on above: Performed By: #### M DAVID #### [facility] [address] [address] [address] Ibis Jimenez Urea nitrogen [Mass/Vol] 14.0 mg/dL Normal 7.0-18.[address] [facility] Comment on above: Performed By: #### M DAVID #### [facility] [address] [address] [address] Ibis Jimenez Urea nitrogen/Creatinine [Mass ratio] 17.9 mg/mg Normal [facility] Comment on above: Performed By: #### M DAVID #### [facility] [address] [address] [address] Ibis Jimenez TSHon 10-19-2021 TSH 1.389 uIU/mL Normal 0.358-3.740 [facility] Comment on above: Performed By: #### A KORI DAVIS #### [facility] [address] [address] [address] Ibis Jimenez Troponinon 10-19-2021 Troponin, High Sens <6 Normal 0-14 [facility] Comment on above: Result Comment: High Sensitivity Troponin values cannot be compared with other Troponin methodologies. Patients with high levels of Biotin oral intake (i.e >5mg/day) may have falsely decreased Troponin levels. Samples collected within 8 hours of biotin intake may require additional information for diagnosis. Performed By: #### T ROPI, LACTIC, CMPX, CBC #### [facility] [address] [place] [address] Employment Specialist/Program Manager: Tavon Nicole MD Troponin, High Sensitivity ng/L 0 - 14 ng/L [facility] Comment on above: High Sensitivity Troponin values cannot be compared with other Troponin methodologies. Patients with high levels of Biotin oral intake (i.e >5mg/day) may have falsely decreased Troponin levels. Samples collected within 8 hours of biotin intake may require additional information for diagnosis. [facility] URINE MICROSCOPIC ONLYon BACTERIA TRACE Abnormal NONE SEEN [facility] Comment on above: Performed By: #### B MP #### [facility] [address] [place] [address] Dr. Ibis Jimenez Bacteria identified Cx Nom (U) NOT INDICATED Normal [facility] Comment on above: Performed By: #### B MP #### [facility] [address] [place] [address] Dr. Ibis Jimenez CAST NONE SEEN Normal NONE SEEN [facility] Comment on above: Performed By: #### B MP #### [facility] [address] [place] [address] Dr. Ibis Jimenez Crystals LM Nom (Urine sed) NONE SEEN Normal NONE SEEN [facility] Comment on above: Performed By: #### B MP #### [facility] [address] [place] [address] Dr. Ibis Jimenez Epithelial cells LM Ql (Urine sed) RARE Normal NONE SEEN /RARE [facility] Comment on above: Performed By: #### B MP #### [facility] [address] [place] [address] Dr. Ibis Jimenez MUCOUS LARGE Abnormal NONE SEEN [facility] Comment on above: Performed By: #### B MP #### [facility] [address] [place] [address] Dr. Ibis Jimenez RBC 2-5 Abnormal 0-2 [facility] Comment on above: Performed By: #### B MP #### [facility] [address] [place], [place] [address] Dr. Ibis Jimenez WBC 0-2 Abnormal NONE SEEN [facility] Comment on above: Performed By: #### B MP #### [facility] [address] [place], [place] [address] ABD/PELVIS WO CONon [...] JASS LAURENT Date: 2021-10-06 20:08 Normal [facility] ER URINE PROFILEon 2 Bilirubin Ql (U) Negative Normal NEGATIVE [facility] Comment on above: Performed By: #### M DAVID #### [facility] [address] [place] [address] Dr. Ibis Jimenez Clarity (U) CLEAR Normal CLEAR [facility] Comment on above: Performed By: #### M DAVID #### [facility] [address] [place] [address] Dr. Ibis Jimenez Color (U) LT. YELLOW Normal YELLOW [facility] Comment on above: Performed By: #### M DAVID #### [facility] [address] [place] [address] Dr. Ibis RODRIGUEZ A micrscopic examination will be performed if indicated. Normal [facility] Comment on above: Performed By: #### M DAVID #### [facility] [address] [place] [address] Dr. Ibis Jimenez Glucose Ql (U) Negative Normal NEGATIVE [facility] Comment on above: Performed By: #### M DAVID #### [facility] [address] [place] [address] Dr. Ibis Jimenez Hemoglobin Ql (U) Negative Normal NEGATIVE [facility] Comment on above: Performed By: #### M DAVID #### [facility] [address] [place] [address] Dr. Ibis Jimenez Ketones Ql (U) Negative Normal NEGATIVE [facility] Comment on above: Performed By: #### M DAVID #### [facility] [address] [place] [address] Dr. Ibis Jimenez LEUKOCYTES Negative Normal NEGATIVE [facility] Comment on above: Performed By: #### M DAVID #### [facility] [address] [place] [address] Dr. Ibis Jimenez Nitrite Ql (U) Negative Normal NEGATIVE [facility] Comment on above: Performed By: #### M DAVID #### [facility] [address] [place] [address] Dr. Ibis Jimenez pH (U) 8.0 [pH] Normal 5-9 [facility] Comment on above: Performed By: #### M DAVID #### [facility] [address] [place] [address] Dr. Ibis Jimenez SPEC GRAVITY 1.010 Normal 1.005-<=1.02 5 [facility] Comment on above: Performed By: #### M DAVID #### [facility] [address] [place] [address] Dr. Ibis Jimenez UA PROTEIN Negative Normal NEGATIVE/ TRACE [facility] Comment on above: Performed By: #### M DAVID #### [facility] [address] [place] [address] Dr. Ibis Jimenez UR MICRO IND NOT INDICATED Normal [facility] Comment on above: Performed By: #### M DAVID #### [facility] [address] [place] [address] Dr. Ibis Jimenez Urobilinogen Qn (U) 0.2 {Dinorah'U}/dL Normal 0.2 - 1. [address] [facility] Comment on above: Performed By: #### M DAVID #### [facility] [address] [place] [address] Dr. Ibis Jimenez ER URINE PROFILEon 2 Bilirubin Ql (U) Negative Normal NEGATIVE [facility] Comment on above: Performed By: #### C VDTBH #### [facility] [address] [place] [address] Dr. Ibis Jimenez Clarity (U) CLEAR Normal CLEAR [facility] Comment on above: Performed By: #### C VDTBH #### [facility] [address] [place] [address] Dr. Ibis Jimenez Color (U) YELLOW Normal YELLOW [facility] Comment on above: Performed By: #### C VDTBH #### [facility] [address] [place] [address] Dr. Ibis Jimenez ERUAHD A micrscopic examination will be performed if indicated. Normal [facility] Comment on above: Performed By: #### C VDTBH #### [facility] [address] [place] [address] Dr. Ibis Jimenez Glucose Ql (U) Negative Normal NEGATIVE [facility] Comment on above: Performed By: #### C VDTBH #### [facility] [address] [place] [address] Dr. Ibis Jimenez Hemoglobin Ql (U) Negative Normal NEGATIVE [facility] Comment on above: Performed By: #### C VDTBH #### [facility] [address] [place] [address] Dr. Ibis Jimenez Ketones Ql (U) Negative Normal NEGATIVE [facility] Comment on above: Performed By: #### C VDTBH #### [facility] [address] [place] [address] Dr. Ibis Jimenez LEUKOCYTES Negative Normal NEGATIVE [facility] Comment on above: Performed By: #### C VDTBH #### [facility] [address] [place] [address] Dr. Ibis Jimenez Nitrite Ql (U) Negative Normal NEGATIVE [facility] Comment on above: Performed By: #### C VDTBH #### [facility] [address] [place] [address] Dr. Ibis Jimenez pH (U) 6.0 [pH] Normal 5-[address] [facility] Comment on above: Performed By: #### C VDTB #### [facility] [address] [place] [address] Dr. Ibis Jimenez SPEC GRAVITY 1.025 Normal 1.005-<=1.[address] [facility] Comment on above: Performed By: #### C VDTBH #### [facility] [address] [place] [address] Dr. Ibis Jimenez UA PROTEIN Negative Normal NEGATIVE/ TRACE [facility] Comment on above: Performed By: #### C VDTBH #### [facility] [address] [place] [address] Dr. Ibis Jimenez UR MICRO IND NOT INDICATED Normal [facility] Comment on above: Performed By: #### C VDTBH #### [facility] [address] [place] [address] Dr. Ibis Jimenez Urobilinogen Qn (U) 0.2 {Dinorah'U}/dL Normal 0.2 - 1. [address] [facility] Comment on above: Performed By: #### C VDTB #### [facility] [address] [address] [address] Ibis Jimenez CBC AUTO DIFFon 10-03-2021 BASO # 0.0 103/ul Normal 0.0-0.[address] [facility] Comment on above: Performed By: #### B MP #### [facility] [address] [address] [address] Ibis Jimenze Basophils/100 WBC (Bld) 0.3 % Normal 0.2-2.0 [facility] Comment on above: Performed By: #### B MP #### [facility] [address] [address] [address] Ibis Jimenez EO # 0.3 103/ul Normal 0.0-0.[address] [facility] Comment on above: Performed By: #### B MP #### [facility] [address] [place] [address] Dr. Ibis Jimenez Eosinophils/100 WBC (Bld) 4.1 % Normal 0.9-7.[address] [facility] Comment on above: Performed By: #### B MP #### [facility] [address] [address] [address] Ibis Jimenez Erythrocyte distribution width (RBC) [Ratio] 13.2 % Normal 11.0-15.[address] [facility] Comment on above: Performed By: #### B MP #### [facility] [address] [address] [address] Ibis Jimenez Hematocrit (Bld) [Volume fraction] 35.7 % Critically low 36.0-48.[address] [facility] Comment on above: Performed By: #### B MP #### [facility] [address] [address] [address] Ibis Jimenez Hemoglobin (Bld) [Mass/Vol] 11.6 g/dL Critically low 12.0-16.[address] [facility] Comment on above: Performed By: #### B MP #### [facility] [address] [address] [address] Ibis Jimenez IG # 0.02 10e3/ul Normal 0.00-0.[address] [facility] Comment on above: Performed By: #### B MP #### [facility] [address] [place] [address] Dr. Ibis Jimenez IG % 0.3 % Normal 0.0-0.[address] [facility] Comment on above: Performed By: #### B MP #### [facility] [address] [place] [address] Dr. Ibis Jimenez LYMPH # 1.5 103/ul Normal 1.2-3.[address] [facility] Comment on above: Performed By: #### B MP #### [facility] [address] [place] [address] Dr. Ibis Jimenez Lymphocytes/100 WBC (Bld) 24.3 % Normal 20.5-60.[address] [facility] Comment on above: Performed By: #### B MP #### [facility] [address] [place] [address] Dr. Ibis Jimenez MANUAL DIFF REQ NO Normal [facility] Comment on above: Performed By: #### B MP #### [facility] [address] [place] [address] Dr. Ibis Jimenez MCH (RBC) [Entitic mass] 28.9 pg Normal 26.7-34.[address] [facility] Comment on above: Performed By: #### B MP #### [facility] [address] [place] [address] Dr. Ibis Jimenez MCHC (RBC) [Mass/Vol] 32.5 g/dL Normal 29.9-35.[address] [facility] Comment on above: Performed By: #### B MP #### [facility] [address] [place] [address] Dr. Ibis Jimenez MCV (RBC) [Entitic vol] 89.0 fL Normal 81.0-99.0 [facility] Comment on above: Performed By: #### B MP #### [facility] [address] [place] [address] Dr. Ibis Jimenez MONO # 0.5 103/ul Normal 0.3-0.[address] [facility] Comment on above: Performed By: #### B MP #### [facility] [address] [address] [address] Ibis Jimenez Monocytes/100 WBC (Bld) 7.3 % Normal 1.7-12.0 [facility] Comment on above: Performed By: #### B MP #### [facility] [address] [address] [address] Ibis Jimenez NEUT # 4.0 103/ul Normal 1.4-6.[address] [facility] Comment on above: Performed By: #### B MP #### [facility] [address] [place] [address] Dr. Ibis Jimenez Neutrophils/100 WBC (Bld) 63.7 % Normal 43.0-75.[address] [facility] Comment on above: Performed By: #### B MP #### [facility] [address] [place] [address] Dr. Ibis Jimenez Platelet mean volume (Bld) [Entitic vol] 9.7 fL Normal 9.5-13.[address] [facility] Comment on above: Performed By: #### B MP #### [facility] [address] [place] [address] Dr. Ibis Jimenez PLT 237 103/ul Normal 150-[address] [facility] Comment on above: Performed By: #### B MP #### [facility] [address] [place] [address] Dr. Ibis Jimenez RBC 4.01 106/ul Critically low 4.20-5.40 [facility] Comment on above: Performed By: #### B MP #### [facility] [address] [place] [address] Dr. Ibis Jimenez WBC 6.3 103/ul Normal 4.0-11.[address] [facility] Comment on above: Performed By: #### B MP #### [facility] [address] [place] [address] Dr. Ibis Jimenez LACTATE/LACTIC ACIDon 2021 Lactate [Moles/Vol] 1.2 mmol/L Normal 0.4-1.9 [facility] Comment on above: Performed By: #### A MM #### [facility] [address] [place] [address] Dr. Ibis Jimenez BUNon 10-02-2021 Urea nitrogen [Mass/Vol] 7.0 mg/dL Normal 7.0-18.[address] [facility] Comment on above: Performed By: #### C VDTBH #### [facility] [address] [place] [address] Dr. Ibis Jimenez CBC AUTO DIFFon 10-02-2021 BASO # 0.0 103/ul Normal 0.0-0.[address] [facility] Comment on above: Performed By: #### A MM #### [facility] [address] [place] [address] Dr. Ibis Jimenez Basophils/100 WBC (Bld) 0.2 % Normal 0.2-2.0 [facility] Comment on above: Performed By: #### A MM #### [facility] [address] [place] [address] Dr. Ibis Jimenez EO # 0.0 103/ul Normal 0.0-0.[address] [facility] Comment on above: Performed By: #### A MM #### [facility] [address] [place] [address] Dr. Ibis Jimenez Eosinophils/100 WBC (Bld) 0.3 % Critically low 0.9-7.[address] [facility] Comment on above: Performed By: #### A MM #### [facility] [address] [place] [address] Dr. Ibis Jimenez Erythrocyte distribution width (RBC) [Ratio] 12.7 % Normal 11.0-15.[address] [facility] Comment on above: Performed By: #### A MM #### [facility] [address] [place] [address] Dr. Ibis Jimenez Hematocrit (Bld) [Volume fraction] 43.4 % Normal 36.0-48.[address] [facility] Comment on above: Performed By: #### A MM #### [facility] [address] [place] [address] Dr. Ibis Jimenez Hemoglobin (Bld) [Mass/Vol] 14.6 g/dL Normal 12.0-16.[address] [facility] Comment on above: Performed By: #### A MM #### [facility] [address] [place] [address] Dr. Ibis Jimenez IG # 0.03 10e3/ul Normal 0.00-0.[address] [facility] Comment on above: Performed By: #### A MM #### [facility] [address] [place] [address] Dr. Ibis Jimenez IG % 0.3 % Normal 0.0-0.[address] [facility] Comment on above: Performed By: #### A MM #### [facility] [address] [place] [address] Dr. Ibis Jimenez LYMPH # 1.2 103/ul Normal 1.2-3.[address] [facility] Comment on above: Performed By: #### A MM #### [facility] [address] [place] [address] Dr. Ibis Jimenez Lymphocytes/100 WBC (Bld) 11.6 % Critically low 20.5-60.[address] [facility] Comment on above: Performed By: #### A MM #### [facility] [address] [place] [address] Dr. Ibis Jimenez MANUAL DIFF REQ NO Normal [facility] Comment on above: Performed By: #### A MM #### [facility] [address] [place] [address] Dr. Ibis Jimenez MCH (RBC) [Entitic mass] 28.5 pg Normal 26.7-34.[address] [facility] Comment on above: Performed By: #### A MM #### [facility] [address] [place] [address] Dr. Ibis Jimenez MCHC (RBC) [Mass/Vol] 33.6 g/dL Normal 29.9-35.[address] [facility] Comment on above: Performed By: #### A MM #### [facility] [address] [place] [address] Dr. Ibis Jimenez MCV (RBC) [Entitic vol] 84.6 fL Normal 81.0-99.0 [facility] Comment on above: Performed By: #### A MM #### [facility] [address] [address] [address] Ibis Jimenez MONO # 0.6 103/ul Normal 0.3-0.[address] [facility] Comment on above: Performed By: #### A MM #### [facility] [address] [address] [address] Ibis Jimenez Monocytes/100 WBC (Bld) 5.9 % Normal 1.7-12.0 [facility] Comment on above: Performed By: #### A MM #### [facility] [address] [address] [address] Ibis Jimenez NEUT # 8.2 103/ul Critically high 1.4-6.5 [facility] Comment on above: Performed By: #### A MM #### [facility] [address] [place] [address] Dr. Ibis Jimenez Neutrophils/100 WBC (Bld) 81.7 % Critically high 43.0-75.[address] [facility] Comment on above: Performed By: #### A MM #### [facility] [address] [address] [address] Ibis Jimenez Platelet mean volume (Bld) [Entitic vol] 9.8 fL Normal 9.5-13.[address] [facility] Comment on above: Performed By: #### A MM #### [facility] [address] [address] [address] Ibis Jimenez PLT 264 103/ul Normal 150-450 [facility] Comment on above: Performed By: #### A MM #### [facility] [address] [address] [address] Ibis Jimenez RBC 5.13 106/ul Normal 4.20-5.40 [facility] Comment on above: Performed By: #### A MM #### [facility] [address] [place] [address] Dr. Ibis Jimenez WBC 10.1 103/ul Normal 4.0-11.0 [facility] Comment on above: Performed By: #### A MM #### [facility] [address] [place] [address] Dr. Ibis Jimenez CREATININEon 10-02-2021 Creatinine [Mass/Vol] 0.69 mg/dL Normal 0.55-1.[address] [facility] Comment on above: Performed By: #### C VDTBH #### [facility] [address] [place] [address] Dr. Ibis Jimenez EGFR-AF CITIZEN OF [place] >60 Normal >=60 [facility] Comment on above: Performed By: #### C VDTBH #### [facility] [address] [place] [address] Dr. Ibis Jimenez EGFR-NON AF CITIZEN OF [place] >60 Normal >=[address] [facility] Comment on above: Performed By: #### C VDTBH #### [facility] [address] [place] [address] Dr. Ibis Jimenez CBC AUTO DIFFon 10-01-2021 BASO # 0.0 103/ul Normal 0.0-0.[address] [facility] Comment on above: Performed By: #### A MM #### [facility] [address] [place] [address] Dr. Ibis Jimenez Basophils/100 WBC (Bld) 0.3 % Normal 0.2-2.0 [facility] Comment on above: Performed By: #### A MM #### [facility] [address] [place] [address] Dr. Ibis Jimenez EO # 0.1 103/ul Normal 0.0-0.[address] [facility] Comment on above: Performed By: #### A MM #### [facility] [address] [place] [address] Dr. Ibis Jimenez Eosinophils/100 WBC (Bld) 1.9 % Normal 0.9-7.[address] [facility] Comment on above: Performed By: #### A MM #### [facility] [address] [place] [address] Dr. Ibis Jimenez Erythrocyte distribution width (RBC) [Ratio] 12.7 % Normal 11.0-15.[address] [facility] Comment on above: Performed By: #### A MM #### [facility] [address] [place] [address] Dr. Ibis Jimenez Hematocrit (Bld) [Volume fraction] 38.1 % Normal 36.0-48.[address] [facility] Comment on above: Performed By: #### A MM #### [facility] [address] [place] [address] Dr. Ibis Jimenez Hemoglobin (Bld) [Mass/Vol] 12.7 g/dL Normal 12.0-16.[address] [facility] Comment on above: Performed By: #### A MM #### [facility] [address] [place] [address] Dr. Ibis Jimenez IG # 0.02 10e3/ul Normal 0.00-0.[address] [facility] Comment on above: Performed By: #### A MM #### [facility] [address] [place] [address] Dr. Ibis Jimenez IG % 0.3 % Normal 0.0-0.[address] [facility] Comment on above: Performed By: #### A MM #### [facility] [address] [place] [address] Dr. Ibis Jimenez LYMPH # 1.9 103/ul Normal 1.2-3.[address] [facility] Comment on above: Performed By: #### A MM #### [facility] [address] [place] [address] Dr. Ibis Jimenez Lymphocytes/100 WBC (Bld) 30.5 % Normal 20.5-60.[address] [facility] Comment on above: Performed By: #### A MM #### [facility] [address] [place] [address] Dr. Ibis Jimenez MANUAL DIFF REQ NO Normal [facility] Comment on above: Performed By: #### A MM #### [facility] [address] [place] [address] Dr. Ibis Jimenez MCH (RBC) [Entitic mass] 28.3 pg Normal 26.7-34.[address] [facility] Comment on above: Performed By: #### A MM #### [facility] [address] [place] [address] Dr. Ibis Jimenez MCHC (RBC) [Mass/Vol] 33.3 g/dL Normal 29.9-35.[address] [facility] Comment on above: Performed By: #### A MM #### [facility] [address] [place] [address] Dr. Ibis Jimenez MCV (RBC) [Entitic vol] 85.0 fL Normal 81.0-99.0 [facility] Comment on above: Performed By: #### A MM #### [facility] [address] [place] [address] Dr. Ibis Jimenez MONO # 0.3 103/ul Normal 0.3-0.[address] [facility] Comment on above: Performed By: #### A MM #### [facility] [address] [place] [address] Dr. Ibis Jimenez Monocytes/100 WBC (Bld) 5.2 % Normal 1.7-12.0 [facility] Comment on above: Performed By: #### A MM #### [facility] [address] [place] [address] Dr. Ibis Jimenez NEUT # 3.9 103/ul Normal 1.4-6.[address] [facility] Comment on above: Performed By: #### A MM #### [facility] [address] [place] [address] Dr. Ibis Jimenez Neutrophils/100 WBC (Bld) 61.8 % Normal 43.0-75.[address] [facility] Comment on above: Performed By: #### A MM #### [facility] [address] [place] [address] Dr. Ibis Jimenez Platelet mean volume (Bld) [Entitic vol] 9.7 fL Normal 9.5-13.[address] [facility] Comment on above: Performed By: #### A MM #### [facility] [address] [place] [address] Dr. Ibis Jimenez PLT 255 103/ul Normal 150-450 [facility] Comment on above: Performed By: #### A MM #### [facility] [address] [place] [address] Dr. Ibis Jimenez RBC 4.48 106/ul Normal 4.20-5.40 [facility] Comment on above: Performed By: #### A MM #### [facility] [address] [place] [address] Dr. Ibis Jimenez WBC 6.3 103/ul Normal 4.0-11.[address] [facility] Comment on above: Performed By: #### A MM #### [facility] [address] [place] [address] Dr. Ibis Jimenez PREG HCG QUALon 10-01-2021 , QUAL Negative Normal NEGATIVE [facility] Comment on above: Performed By: #### M DAVID #### [facility] [address] [place] [address] Dr. Ibis Jimenez [facility]20 SARS-CoV-2 (COVID-19) RNA SAURABH+probe Ql (Unsp spec) Not detected Normal NOT DETECTED [facility] Comment on above: Result Comment: This test is not yet approved or cleared by the [place] FDA. When there are no FDA-approved or cleared tests available, and other criteria are met, FDA can make tests available under an emergency access mechanism called an Emergency Use Authorization (EUA). The EUA for this test is supported by the [place] of Health and Human Service's (HHS's) declaration [...] SARS-CoV-2. Performed By: #### B MP #### [facility] [address] [place] [address] Dr. Ibis Jimenez TYPE AND SCREENon 09-29-2021 TYPE AND SCREEN Negative Normal [facility] Comment on above: Performed By: #### B MP #### [facility] [address] [place] [address] Dr. Ibis Jimenez Covid-19 PCR ([facility])on SARS-CoV-2 (COVID-19) RNA SAURABH+probe Ql (Unsp spec) Not detected Normal NOT DETECTED [facility] Comment on above: Result Comment: This test is not yet approved or cleared by the [place] FDA. When there are no FDA-approved or cleared tests available, and other criteria are met, FDA can make tests available under an emergency access mechanism called an Emergency Use Authorization (EUA). The EUA for this test is supported by the [place] of Health and Human Service's (HHS's) declaration [...] SARS-CoV-2. Performed By: #### C VDTB #### [facility] [address] [place] [address] Dr. Ibis Jimenez TYPE AND SCREENon 09-21-2021 TYPE AND SCREEN Negative Normal [facility] Comment on above: Performed By: #### B MP #### [facility] [address] [place] [address] Dr. Ibis Jimenez CHLAMYDIA/GONOCOCCUS SAURABH (SW AB/URINE/PAPon 08-17-2021 Chlamydia trachomatis, SAURABH Negative Normal Negative [facility] Comment on above: Performed By: #### A CET SALYC #### [facility] [address] [place] [address] Dr. Ibis Jimenez Neisseria gonorrhoeae, SAURABH Negative Normal Negative [facility] Comment on above: Performed By: #### A CET, SALYC #### [facility] [address] [place] [address] Dr. Ibis Jimenez CBC AUTO DIFFon 08-14-2021 BASO # 0.0 103/ul Normal 0.0-0.[address] [facility] Comment on above: Performed By: #### C VDTBH #### [facility] [address] [place] [address] Dr. Ibis Jimenez Basophils/100 WBC (Bld) 0.3 % Normal 0.2-2.0 [facility] Comment on above: Performed By: #### C VDTBH #### [facility] [address] [place] [address] Dr. Ibis Jimenez EO # 0.2 103/ul Normal 0.0-0.[address] [facility] Comment on above: Performed By: #### C VDTBH #### [facility] [address] [place] [address] Dr. Ibis Jimenez Eosinophils/100 WBC (Bld) 2.5 % Normal 0.9-7.[address] [facility] Comment on above: Performed By: #### C VDTBH #### [facility] [address] [place] [address] Dr. Ibis Jimenez Erythrocyte distribution width (RBC) [Ratio] 13.0 % Normal 11.0-15.[address] [facility] Comment on above: Performed By: #### C VDTBH #### [facility] [address] [place] [address] Dr. Ibis Jimenez Hematocrit (Bld) [Volume fraction] 38.1 % Normal 36.0-48.[address] [facility] Comment on above: Performed By: #### C VDTBH #### [facility] [address] [place] [address] Dr. Ibis Jimenez Hemoglobin (Bld) [Mass/Vol] 12.8 g/dL Normal 12.0-16.[address] [facility] Comment on above: Performed By: #### C VDTBH #### [facility] [address] [place] [address] Dr. Ibis Jimenez IG # 0.02 10e3/ul Normal 0.00-0.[address] [facility] Comment on above: Performed By: #### C VDTBH #### [facility] [address] [address] [address] Ibis Jimenez IG % 0.3 % Normal 0.0-0.[address] [facility] Comment on above: Performed By: #### C VDTBH #### [facility] [address] [address] [address] Ibis Jimenez LYMPH # 1.5 103/ul Normal 1.2-3.[address] [facility] Comment on above: Performed By: #### C VDTBH #### [facility] [address] [place] [address] Dr. Ibis Jimenez Lymphocytes/100 WBC (Bld) 22.5 % Normal 20.5-60.[address] [facility] Comment on above: Performed By: #### C VDTBH #### [facility] [address] [place] [address] Dr. Ibis Jimenez MANUAL DIFF REQ NO Normal [facility] Comment on above: Performed By: #### C VDTBH #### [facility] [address] [place] [address] Dr. Ibis Jimenez MCH (RBC) [Entitic mass] 28.6 pg Normal 26.7-34.[address] [facility] Comment on above: Performed By: #### C VDTBH #### [facility] [address] [place] [address] Dr. Ibis Jimenez MCHC (RBC) [Mass/Vol] 33.6 g/dL Normal 29.9-35.[address] [facility] Comment on above: Performed By: #### C VDTBH #### [facility] [address] [place] [address] Dr. Ibis Jimenez MCV (RBC) [Entitic vol] 85.0 fL Normal 81.0-99.0 [facility] Comment on above: Performed By: #### C VDTBH #### [facility] [address] [place] [address] Dr. Ibis Jimenez MONO # 0.4 103/ul Normal 0.3-0.[address] [facility] Comment on above: Performed By: #### C VDTBH #### [facility] [address] [place] [address] Dr. Ibis Jimenez Monocytes/100 WBC (Bld) 6.3 % Normal 1.7-12.0 [facility] Comment on above: Performed By: #### C VDTBH #### [facility] [address] [place] [address] Dr. Ibis Jimenez NEUT # 4.6 103/ul Normal 1.4-6.[address] [facility] Comment on above: Performed By: #### C VDTBH #### [facility] [address] [place] [address] Dr. Ibis Jimenez Neutrophils/100 WBC (Bld) 68.1 % Normal 43.0-75.[address] [facility] Comment on above: Performed By: #### C VDTBH #### [facility] [address] [place] [address] Dr. Ibis Jimenez Platelet mean volume (Bld) [Entitic vol] 9.8 fL Normal 9.5-13.[address] [facility] Comment on above: Performed By: #### C VDTBH #### [facility] [address] [place] [address] Dr. Ibis Jimenez PLT 243 103/ul Normal 150-[address] [facility] Comment on above: Performed By: #### C VDTBH #### [facility] [address] [place] [address] Dr. Ibis Jimenez RBC 4.48 106/ul Normal 4.20-5.[address] [facility] Comment on above: Performed By: #### C VDTBH #### [facility] [address] [place] [address] Dr. Ibis Jimenez WBC 6.7 103/ul Normal 4.0-11.[address] [facility] Comment on above: Performed By: #### C VDTBH #### [facility] [address] [place] [address] ABD/PELVIS WO CONon [...] NELI COTTO Date: 2021-08-14 18:00 Normal [facility] ER URINE PROFILEon 2 Bilirubin Ql (U) SMALL Abnormal NEGATIVE [facility] Comment on above: Performed By: #### B MP #### [facility] [facility] [address] [place] [address] Dr. Ibis Jimenez Clarity (U) CLEAR Normal CLEAR [facility] Comment on above: Performed By: #### B MP #### [facility] [address] [address] [address] Ibis Jimenez Color (U) YELLOW Normal YELLOW [facility] Comment on above: Performed By: #### B MP #### [facility] [address] [address] [address] Ibis Jimenez ERUAHD A micrscopic examination will be performed if indicated. Normal [facility] Comment on above: Performed By: #### B MP #### [facility] [address] [address] [address] Ibis Jimenez Glucose Ql (U) Negative Normal NEGATIVE [facility] Comment on above: Performed By: #### B MP #### [facility] [address] [address] [address] Ibis Jimenez Hemoglobin Ql (U) SMALL Abnormal NEGATIVE [facility] Comment on above: Performed By: #### B MP #### [facility] [address] [address] [address] Ibis Jimenez Ketones Ql (U) TRACE Abnormal NEGATIVE [facility] Comment on above: Performed By: #### B MP #### [facility] [address] [place] [address] Dr. Ibis Jimenez LEUKOCYTES Negative Normal NEGATIVE [facility] Comment on above: Performed By: #### B MP #### [facility] [address] [address] [address] Ibis Jimenez Nitrite Ql (U) Negative Normal NEGATIVE [facility] Comment on above: Performed By: #### B MP #### [facility] [address] [address] [address] Ibis Jimenez pH (U) 5.5 [pH] Normal 5-[address] [facility] Comment on above: Performed By: #### B MP #### [facility] [address] [place] [address] Dr. Ibis Jimenez SPEC GRAVITY >=1.030 Abnormal 1.005-<=1.[address] [place] [address] Comment on above: Performed By: #### B MP #### [facility] [address] [place] [address] Dr. Ibis Jimenez UA PROTEIN TRACE Normal NEGATIVE/ TRACE [facility] Comment on above: Performed By: #### B MP #### [facility] [address] [place] [address] Dr. Ibis Jimenez UR MICRO IND INDICATED Normal [facility] Comment on above: Performed By: #### B MP #### [facility] [address] [place] [address] Dr. Ibis Jimenez Urobilinogen Qn (U) 1.0 {Dinorah'U}/dL Normal 0.2 - 1. [address] [facility] Comment on above: Performed By: #### B MP #### [facility] [address] [address] [address] Ibis Jimenez URon 08-14-2021 , QUAL Negative Normal NEGATIVE [facility] Comment on above: Performed By: #### B MP #### [facility] [address] [address] [address] Ibis Jimenez PROF CHEM 8 (BAS METB)on Anion gap [Moles/Vol] 15.3 mmol/L Normal [facility] Comment on above: Performed By: #### B MP #### [facility] [address] [place] [address] Dr. Ibis Jimenez Calcium [Mass/Vol] 8.4 mg/dL Critically low 8.5-10.[address] [facility] Comment on above: Performed By: #### B MP #### [facility] [address] [address] [address] Ibis Jimenez Chloride [Moles/Vol] 106 mmol/L Normal 98-[address] [facility] Comment on above: Performed By: #### B MP #### [facility] [address] [place] [address] Dr. Ibis Jimenez CO2 [Moles/Vol] 22.3 mmol/L Normal 21.0-32.0 [facility] Comment on above: Performed By: #### B MP #### [facility] [address] [address] [address] Ibis Jimenez Creatinine [Mass/Vol] 0.75 mg/dL Normal 0.55-1.02 [facility] Comment on above: Performed By: #### B MP #### [facility] [address] [place] [address] Dr. Ibis Jimenez EGFR-AF CITIZEN OF [place] >60 Normal >=60 [facility] Comment on above: Performed By: #### B MP #### [facility] [address] [place] [address] Dr. Ibis Jimenez EGFR-NON AF CITIZEN OF [place] >60 Normal >=[address] [facility] Comment on above: Performed By: #### B MP #### [facility] [address] [address] [address] Ibis Jimenez Glucose [Mass/Vol] 107 mg/dL Critically high 74-106 T [facility] Comment on above: Performed By: #### B MP #### [facility] [address] [address] [address] Ibis Jimenez Potassium [Moles/Vol] 3.6 mmol/L Normal 3.5-5.[address] [facility] Comment on above: Performed By: #### B MP #### [facility] [address] [place] [address] Dr. Ibis Jimenez Sodium [Moles/Vol] 140 mmol/L Normal 136-145 [facility] Comment on above: Performed By: #### B MP #### [facility] [address] [place] [address] Dr. Ibis Jimenez Urea nitrogen [Mass/Vol] 13.0 mg/dL Normal 7.0-18.[address] [facility] Comment on above: Performed By: #### B MP #### [facility] [address] [place] [address] Dr. Ibis Jimenez Urea nitrogen/Creatinine [Mass ratio] 17.3 mg/mg Normal [facility] Comment on above: Performed By: #### B MP #### [facility] [address] [place] [address] Dr. Ibis Jimenez URINE MICROSCOPIC ONLYon BACTERIA TRACE Abnormal NONE SEEN [facility] Comment on above: Performed By: #### B MP #### [facility] [address] [place] [address] Dr. Ibis Jimenez Bacteria identified Cx Nom (U) NOT INDICATED Normal [facility] Comment on above: Performed By: #### B MP #### [facility] [address] [place] [address] Dr. Ibis Jimenez CAST NONE SEEN Normal NONE SEEN [facility] Comment on above: Performed By: #### B MP #### [facility] [address] [address] [address] Ibis Jimenez Crystals LM Nom (Urine sed) NONE SEEN Normal NONE SEEN [facility] Comment on above: Performed By: #### B MP #### [facility] [address] [address] [address] Ibis Jimenez Epithelial cells LM Ql (Urine sed) MANY Abnormal NONE SEEN /RARE [facility] Comment on above: Performed By: #### B MP #### [facility] [address] [address] [address] Ibis Jimenez MUCOUS SMALL Abnormal NONE SEEN [facility] Comment on above: Performed By: #### B MP #### [facility] [address] [address] [address] Ibis Jimenez RBC 2-5 Abnormal 0-2 [facility] Comment on above: Performed By: #### B MP #### [facility] [address] [address] [address] Ibis Jimenez WBC 2-5 Abnormal NONE SEEN [facility] Comment on above: Performed By: #### B MP #### [facility] [address] [address] [address] Ibis Jimenez CBC Auto DifferentialOrdered By: Vielka Ching on 12-24-2020 [facility] # 0.44 [facility] Work Phone: Absolute Immature Granulocyte 0.[address] [facility] Work Phone: Absolute Lymph # 2.48 [facility] Work Phone: Absolute [facility] [place] # 0.55 [facility] Work Phone: Basophils (Bld) [#/Vol] 10*3/uL [employer] Work Phone: Basophils/100 WBC (Bld) 0 % 0 - 2 % [employer] Work Phone: Differential Type NOT REPORTED [employer] Work Phone: Eosinophils/100 WBC (Bld) 5 % High 1 - 4 % [employer] Phone: Hematocrit (Bld) [Volume fraction] 37.4 % 36.3 - 47.1 % [employer] Phone: Hemoglobin.gastrointest inal spec 1 Ql (Stl) 12.3 g/dL 11.9 - 15.1 g/dL [employer] Phone: Immature granulocytes/100 WBC (Bld) 1 % High 0 [employer] Phone: Interpretation and review of laboratory results Abnormal [employer] Phone: Lymphocytes/100 WBC (Bld) 30 % 24 - 43 % [employer] Phone: MCH (RBC) [Entitic mass] 28.5 pg 25.2 - 33.5 pg [employer] Phone: MCHC (RBC) [Mass/Vol] 32.9 g/dL 28.4 - 34.8 g/dL [employer] Phone: MCV (RBC) [Entitic vol] 86.8 fL 82.6 - 102.9 fL [employer] Phone: Monocytes/100 WBC (Bld) 7 % 3 - 12 % [employer] Phone: NRBC Automated 0.0 0.0 per 100 WBC [employer] Phone: Platelet distribution width (Bld) [Ratio] 12.7 % 11.8 - 14.4 % [employer] Phone: Platelet Estimate NOT REPORTED [employer] Phone: Platelet mean volume (Bld) [Entitic vol] 9.4 fL 8.1 - 13.5 fL [employer] Phone: Platelets (Bld) [#/Vol] 252 10*3/uL [employer] Phone: RBC (Bld) [#/Vol] 4.31 10*6/uL 3.95 - 5.1 1 m/uL [facility] Work Phone: RBC (Bld) [#/Vol] NOT REPORTED [facility] [employer] Work Phone: Segmented neutrophils/100 WBC (Bld) 57 % 36 - 65 % [facility] [employer] Work Phone: Segs [facility] 4.78 [facility] Work Phone: WBC (Bld) [#/Vol] 8.3 10*3/uL [facility] Work Phone: WBC (Bld) [#/Vol] NOT REPORTED [facility] Work Phone: [facility] [employer] Work Phone: CBC with Diffon 12-24-2020 Abs. Basophil <0.03 Normal 0.00-0.20 [facility] Comment on above: Performed By: #### C MPX, CDP #### [address] [place] [address] Employment Specialist/Program Manager: Souleymane Pineda MD Abs.Imm.Granulocyte 0.05 k/uL Normal 0.00-0.30 [facility] Comment on above: Performed By: #### C MPX, CDP #### [address] [place], [place] [id number] Employment Specialist/Program Manager: Souleymane Pineda MD Abs.Neutrophil (Seg) 4.78 k/uL Normal 1.50-8.10 [facility] Comment on above: Performed By: #### C MPX, CDP #### [address] [place] [address] Employment Specialist/Program Manager: Souleymane Pineda MD Basophils/100 WBC (Bld) 0 % Normal 0-2 M [facility] Comment on above: Performed By: #### C MPX, CDP #### [address] [place] [address] Employment Specialist/Program Manager: Souleymane Pineda MD Eosinophils (Bld) [#/Vol] 0.44 10*3/uL Normal 0.00-0.44 [facility] Comment on above: Performed By: #### C MPX, CDP #### [facility] [address] [place] [address] Dr. [place], [place] [id number] Employment Specialist/Program Manager: Souleymane Pineda MD Eosinophils/100 WBC (Bld) 5 % High 1-4 [facility] Comment on above: Performed By: #### C MPX, CDP #### [address] [place], [place] [id number] Employment Specialist/Program Manager: Souleymane Pineda MD Erythrocyte distribution width (RBC) [Ratio] 12.7 % Normal 11.8-14.4 [facility] Comment on above: Performed By: #### C MPX, CDP #### [address] [place], [facility] Employment Specialist/Program Manager: Souleymane Pineda MD Hematocrit (Bld) [Volume fraction] 37.4 % Normal 36.3-47.1 [facility] Comment on above: Performed By: #### C MPX, CDP #### [address] [place], [place] [id number] Employment Specialist/Program Manager: Souleymane Pineda MD Hemoglobin (Bld) [Mass/Vol] 12.3 g/dL Normal 11.9-15.1 [facility] Comment on above: Performed By: #### C MPX, CDP #### [facility] [address] [place] [address] Dr[place], [place] [id number] Employment Specialist/Program Manager: Souleymane Pineda MD Immature granulocytes/100 WBC (Bld) 1 % High 0 [facility] Comment on above: Performed By: #### C MPX, CDP #### [facility] [address] [place] [address] [place] [address] Employment Specialist/Program Manager: Souleymane Pineda MD Lymphocytes (Bld) [#/Vol] 2.48 10*3/uL Normal 1.10-3.70 [facility] Comment on above: Performed By: #### C MPX, CDP #### [address] [place] [address] Employment Specialist/Program Manager: Souleymane Pineda MD Lymphocytes/100 WBC (Bld) 30 % Normal 24-43 [facility] Comment on above: Performed By: #### C MPX, CDP #### [address] [place] [address] Employment Specialist/Program Manager: Souleymane Pineda MD MCH (RBC) [Entitic mass] 28.5 pg Normal 25.2-33.5 [facility] Comment on above: Performed By: #### C MPX, CDP #### [address] [place] [address] Employment Specialist/Program Manager: Souleymane Pineda MD MCHC (RBC) [Mass/Vol] 32.9 g/dL Normal 28.4-34.8 [facility] Comment on above: Performed By: #### C MPX, CDP #### [address] [place] [address] Employment Specialist/Program Manager: Souleymane Pineda MD MCV (RBC) [Entitic vol] 86.8 fL Normal 82.6-102.9 [facility] Comment on above: Performed By: #### C MPX, CDP #### [address] [place] [address] Employment Specialist/Program Manager: Souleymane Pineda MD Monocytes (Bld) [#/Vol] 0.55 10*3/uL Normal 0.10-1.20 [facility] Comment on above: Performed By: #### C MPX, CDP #### [address] [place] [address] Employment Specialist/Program Manager: Souleymane Pineda MD Monocytes/100 WBC (Bld) 7 % Normal 3-12 M [facility] Comment on above: Performed By: #### C MPX, CDP #### [facility] [address] [place], [place] [id number] Employment Specialist/Program Manager: Souleymane Pineda MD Neutrophil (Seg) 57 % Normal 36-65 [facility] Comment on above: Performed By: #### C MPX, CDP #### [facility] [address] [place], [place] [id number] Employment Specialist/Program Manager: Souleymane Pineda MD NRBC Automated 0.0 per 100 WBC Normal 0.0 [facility] Comment on above: Performed By: #### C MPX, CDP #### [facility] [address] [place], [place] [id number] Employment Specialist/Program Manager: Souleymane Pineda MD Platelet mean volume (Bld) [Entitic vol] 9.4 fL Normal 8.1-13.5 [facility] Comment on above: Performed By: #### C MPX, CDP #### [address] [place], [place] [id number] Employment Specialist/Program Manager: Souleymane Pineda MD Platelets (Bld) [#/Vol] 252 10*3/uL Normal 138-453 [facility] Comment on above: Performed By: #### C MPX, CDP #### [address] [place] [address] Employment Specialist/Program Manager: Souleymane Pineda MD RBC (Bld) [#/Vol] 4.31 10*6/uL Normal 3.95-5.11 [facility] Comment on above: Performed By: #### C MPX, CDP #### [facility] [address] [place] [address] Employment Specialist/Program Manager: Souleymane Pineda MD WBC (Bld) [#/Vol] 8.3 10*3/uL Normal 3.5-11.3 [facility] Comment on above: Performed By: #### C MPX, CDP #### [facility] [address] [place] [address] Employment Specialist/Program Manager: Souleymane Pineda MD Auto Diff Performed NOT REPORTED Normal [facility] Comment on above: Performed By: #### C MPX, CDP #### [facility] [address] [place] [address] Employment Specialist/Program Manager: Souleymane Pineda MD Platelet Comment NOT REPORTED Normal [facility] Comment on above: Performed By: #### C MPX, CDP #### [facility] [address] [place] [address] Employment Specialist/Program Manager: Souleymane Pineda MD RBC morphology finding Nom (Bld) NOT REPORTED Normal [facility] Comment on above: Performed By: #### C MPX, CDP #### [facility] [address] [place] [address] [place] [address] Employment Specialist/Program Manager: Souleymane Pineda MD WBC Morphology NOT REPORTED Normal [facility] Comment on above: Performed By: #### C MPX, CDP #### [facility] [address] [place] [address] Dr. [place], [place] [id number] Employment Specialist/Program Manager: Souleymane Pineda MD CT HEAD WO CONTRASTon [...] the orbits demonstrate no acute abnormality. SINUSES: Cjkx-jk-awlprmkw paranasal sinus mucosal thickening. SOFT TISSUES/SKULL: No acute abnormality of the visualized skull or soft tissues. IMPRESSION: No acute intracranial abnormality. Interpreted by: Edwin Bentley MD Signed by: Edwin Bentley MD 12/24/20 Final result Normal [facility] CT Head WO ContrastOrdered B y: Vielka Ching on 12-24-2020 No acute intracranial abnormality. [employer] Phone: EXAMINATION: CT OF THE HEAD WITHOUT [...] the orbits demonstrate no acute abnormality. SINUSES: Ylyd-il-zqtdbvaf paranasal sinus mucosal thickening. SOFT TISSUES/SKULL: No acute abnormality of the visualized skull or soft tissues. [employer] Phone: Dimitri, Rust Incoming Radiant Results From [facility] [facility] - 12/24/2020 8:49 PM EDT EXAMINATION: CT [...] the orbits demonstrate no acute abnormality. SINUSES: Ckjo-ys-yvbrzvjy paranasal sinus mucosal thickening. SOFT TISSUES/SKULL: No acute abnormality of the visualized skull or soft tissues. IMPRESSION: No acute intracranial abnormality. [facility] Work Phone: [facility] Work Phone: Comp Metabolic Pr/rfx MGon 1 02-24-2020 Bilirubin [Mass/Vol] mg/dL Low 0.3-1.2 [facility] Comment on above: Performed By: #### C RONNX, CDP #### [facility] [address] [place] [address] Employment Specialist/Program Manager: Souleymane Pineda MD (cont.) Normal [facility] Comment on above: Result Comment: Aver age GFR for 20-29 years old: 116 mL/min/1.73sq m Chronic Kidney Disease: <60 mL/min/1.73sq m Kidney failure: <15 mL/min/1.73sq m eGFR calculated using average adult body mass. Additional eGFR calculator available at: http://www.Bellstrike.Arriendas.cl/multiple_crcl_2012.htm Performed By: #### C JULIA, CDP #### [address] [place] [address] Employment Specialist/Program Manager: Souleymane Pineda MD Albumin [Mass/Vol] 4.0 g/dL Normal 3.5-5.2 [facility] Comment on above: Performed By: #### C RONNX, CDP #### [facility] [address] [place] [address] Employment Specialist/Program Manager: Souleymane Pineda MD Albumin/Glob Ratio 1.5 Normal 1.0-2.5 [facility] Comment on above: Performed By: #### C RONNX, CDP #### [facility] [address] [place] [id number] Employment Specialist/Program Manager: Souleymane Pineda MD Alkaline Phos 90 U/L Normal 35-104 [facility] Comment on above: Performed By: #### C MPX, CDP #### [facility] [address] [place], [place] [id number] Employment Specialist/Program Manager: Souleymane Pineda MD ALT [Catalytic activity/Vol] 40 U/L High 5-33 [facility] Comment on above: Performed By: #### C MPX, CDP #### [facility] [address] [place], [place] [id number] Employment Specialist/Program Manager: Souleymane Pineda MD Anion gap [Moles/Vol] 11 mmol/L Normal 9-17 [facility] Comment on above: Performed By: #### C MPX, CDP #### [facility] [address] [place], [place] [id number] Employment Specialist/Program Manager: Souleymane Pineda MD AST [Catalytic activity/Vol] 19 U/L Normal <32 [facility] Comment on above: Performed By: #### C MPX, CDP #### [facility] [address] [place], [place] [address]83 Employment Specialist/Program Manager: Souleymane Pineda MD BUN/CRE Ratio 15 Normal 9-20 [facility] Comment on above: Performed By: #### C MPX, CDP #### [facility] [address] [place], [place] [id number] Employment Specialist/Program Manager: Souleymane Pineda MD Calcium [Mass/Vol] 8.9 mg/dL Normal 8.6-10.4 [facility] Comment on above: Performed By: #### C MPX, CDP #### [facility] [address] [place], [place] 2345383 Employment Specialist/Program Manager: Souleymane Pineda MD Chloride [Moles/Vol] 104 mmol/L Normal 98-107 [facility] Comment on above: Performed By: #### C MPX, CDP #### [facility] [address] [place], [place] [phone] Employment Specialist/Program Manager: Souleymane Pineda MD CO2 [Moles/Vol] 24 mmol/L Normal 20-31 [facility] Comment on above: Performed By: #### C MPX, CDP #### [facility] [address] [place], [place] 1597383 Employment Specialist/Program Manager: Souleymane Pineda MD Creatinine [Mass/Vol] 0.60 mg/dL Normal 0.50-0.90 [facility] Comment on above: Performed By: #### C MPX, CDP #### [facility] [address] [place], [place] 150[address]183 Employment Specialist/Program Manager: Souleymane Pineda MD GFR, Amer >60 Normal >60 [facility] Comment on above: Performed By: #### C MPX, CDP #### [facility] [address] [place], [place] 5909283 Employment Specialist/Program Manager: Souleymane Pineda MD GFR,non Amer >60 Normal >60 [facility] Comment on above: Performed By: #### C MPX, CDP #### [facility] [address] [place], [place] [phone] Employment Specialist/Program Manager: Souleymane Pineda MD Glucose [Mass/Vol] 91 mg/dL Normal 70-99 [facility] Comment on above: Performed By: #### C MPX, CDP #### [facility] [address] [place], [place] [phone] Employment Specialist/Program Manager: Souleymane Pineda MD Potassium [Moles/Vol] 4.0 mmol/L Normal 3.7-5.3 [facility] Comment on above: Performed By: #### C MPX, CDP #### [facility] [address] [place], [place] [address]83 Employment Specialist/Program Manager: Souleymane Pineda MD Protein [Mass/Vol] 6.7 g/dL Normal 6.4-8.3 [facility] Comment on above: Performed By: #### C MPX, CDP #### [facility] [address] [place] [address] Employment Specialist/Program Manager: Souleymane Pineda MD Sodium [Moles/Vol] 139 mmol/L Normal 135-144 [facility] Comment on above: Performed By: #### C MPX, CDP #### [facility] [address] [place] [address] Employment Specialist/Program Manager: Souleymane Pineda MD Staging: Normal [facility] Comment on above: Result Comment: Stag e 1: Some kidney damage normal GFR Stage 2: Mild kidney damage GFR 60-89 Stage 3: Moderate kidney damage GFR 30-59 Stage 4: Severe kidney damage GFR 15-29 Stage 5: Severe kidney damage GFR <15 ESRD - chronic treatment by dialysis or transplant Performed By: #### C MPX, CDP #### [facility] [address] [place] [address] Employment Specialist/Program Manager: Souleymane Pineda MD Urea nitrogen [Mass/Vol] 9 mg/dL Normal 6-20 [facility] Comment on above: Performed By: #### C MPX, CDP #### [facility] [address] [place] [address] [place] [address] Employment Specialist/Program Manager: Souleymane Pineda MD Comprehensive Metabolic Pane l w/ Reflex to MGOrdered By: Vielka Ching on 12-24-2020 Albumin [Mass/Vol] 4 g/dL 3.5 - 5.2 g/dL [facility] Work Phone: Albumin/Globulin [Mass ratio] 1.5 {ratio} [employer] Phone: ALP (Bld) [Catalytic activity/Vol] 90 U/L 35 - 104 U/L [employer] Phone: ALT [Catalytic activity/Vol] 40 U/L High 5 - 33 U/L [employer] Phone: Anion gap [Moles/Vol] 11 mmol/L 9 - 17 mmol/L [employer] Phone: AST [Catalytic activity/Vol] 19 U/L <32 [employer] Phone: Bilirubin [Mass/Vol] mg/dL Low 0.3 - 1 .2 mg/dL [employer] Phone: Calcium [Mass/Vol] 8.9 mg/dL 8.6 - 10. 4 mg/dL [employer]: Chloride [Moles/Vol] 104 mmol/L 98 - 10 7 mmol/L [employer] Phone: CO2 [Moles/Vol] 24 mmol/L 20 - 31 mmol/L [employer] Phone: Creatinine [Mass/Vol] 0.6 mg/dL 0.50 - 0.90 mg/dL [employer] Phone: Free PSA/Total PSA [Mass fraction] 6.7 g/dL 6.4 - 8.3 g/dL [employer] Phone: GFR >60 >60 mL/min [employer] Phone: GFR Non- >60 >60 mL/min [employer]: Glucose [Mass/Vol] 91 mg/dL 70 - 99 mg/dL [employer] Phone: Interpretation and review of laboratory results Abnormal [employer] Phone: Potassium [Moles/Vol] 4.0 mmol/L 3.7 - 5.3 mmol/L [employer] Phone: Sodium [Moles/Vol] 139 mmol/L 135 - 144 mmol/L [employer] Phone: Urea nitrogen (BldV) [Mass/Vol] 9 mg/dL 6 - 20 mg/dL [employer] Phone: Urea nitrogen/Creatinine (Bld) [Mass ratio] 15 [employer] Work Phone: [facility] [employer] Work Phone: Laboratory - Chemistry and C hemistry - challengeOrdered By: Vielka Ching on 12-24-2020 GFR/1.73 sq M.predicted MDRD (S/P/Bld) [Vol rate/Area] [email or web address] Work Phone: Comment on above: Average GFR for 20-2 9 years old: 116 mL/min/1.73sq m Chronic Kidney Disease: <60 mL/min/1.73sq m Kidney failure: <15 mL/min/1.73sq m eGFR calculated using average adult body mass. Additional eGFR calculator available at: http://[email or web address]/multiple_crcl_2012.htm Stage 1: Some kidney damage normal GFR [...] pressure 63 mm[Hg] Infusion 8 Work Phone: [facility] 11-11-2022 10:55-0400 Heart rate 83 /min Infusion 8 Work Phone: [facility] 11-11-2022 10:55-0400 Systolic blood pressure 110 mm[Hg] Infusion 8 Work Phone: [facility] 07-28-2022 10:15-0400 Diastolic blood pressure 50 mm[Hg] Infusion 8 Work Phone: [facility] 07-28-2022 10:15-0400 Heart rate 80 /min Infusion 8 Work Phone: [facility] 07-28-2022 10:15-0400 Systolic blood pressure 105 mm[Hg] Infusion 8 Work Phone: [facility] 12-03-2021 09:47-0400 Diastolic blood pressure 81 mm[Hg] Jessecristiana Borrego Work Phone: [facility] 12-03-2021 09:47-0400 Heart rate 66 /min Jesse Borrego MD Work Phone: [facility] 12-03-2021 09:47-0400 SaO2% (BldA) [Mass fraction] 100 % Jesse Salima Work Phone: [facility] 12-03-2021 09:47-0400 Systolic blood pressure 131 mm[Hg] Jesse Borrego MD Work Phone: [facility] 10-20-2021 12:00-0400 Diastolic blood pressure 101 mm[Hg] Lucila Mota MD Work Phone: [facility] [employer] 10-20-2021 12:00-0400 Heart rate 85 /min Lucila Mota MD Work Phone: [facility] [employer] 10-20-2021 12:00-0400 Respiratory rate 12 /min Lucila Mota MD Work Phone: [facility] [employer] 10-20-2021 12:00-0400 SaO2% (BldA) [Mass fraction] 98 % Lucila Mota MD Work Phone: [facility] [employer] 10-20-2021 12:00-0400 Systolic blood pressure 136 mm[Hg] Lucila Mota MD Work Phone: [employer] 10-20-2021 08:00-0400 Body temperature 98.2 [degF] Lucila Mota MD Work Phone: [facility] [employer] 12-24-2020 19:36-0400 Body temperature 99 [degF] Vielka Ching DO Work Phone: [facility] Work Phone: 12-24-2020 19:36-0400 Diastolic blood pressure 80 mm[Hg] Vielka Ching DO Work Phone: [facility] Work Phone: 12-24-2020 19:36-0400 Heart rate 108 /min Vielka Ching [employer] Work Phone: [facility] Work Phone: 12-24-2020 19:36-0400 Respiratory rate 20 /min Vielka Ching DO Work Phone: [facility] Work Phone: 12-24-2020 19:36-0400 SaO2% (BldA) [Mass fraction] 96 % Vielka Ching [employer] Work Phone: [facility] Work Phone: 12-24-2020 19:36-0400 Systolic blood pressure 136 mm[Hg] Vielka Ching DO Work Phone: [facility] Work Phone: Encounters Encounter Date Encounter Type Care Provider Facility Start: 02-07-2023 End: 02-07-2023 ambulatory ZAY LEONARDO Not Available Start: 01-26-2023 End: 01-26-2023 ambulatory ZAY LEONARDO Not Available Start: 12-13-2022 Refill Cameroni Green APR N.SOURCING ENGINEER Work Phone: Neurology Headache [facility] Comment on above: Refill Request Infusion (HEADACHE I NFUSIONS) Start: 12-12-2022 End: 12-12-2022 ambulatory KOLI GREEN Facility:[facility] Start: 12-09-2022 Refill Ольга Cardona er EXPERIMENTAL TECHNICIAN.SOURCING ENGINEER Work Phone: Neurology Comment on above: Refill Request Start: 11-11-2022 End: 11-11-2022 ambulatory Infusion Main Chair 8 Work Phone: Neurology Comment on above: 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 with status migrainosus (Primary Dx) Start: 11-10-2022 End: 11-10-2022 ambulatory ОЛЬГА Rhina AGUILAR Facility:[facility] Start: 11-10-2022 End: 11-10-2022 ambulatory Ольга Aguilar EXPERIMENTAL TECHNICIAN.SOURCING ENGINEER Work Phone: Neurology Comment on above: 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 with status migrainosus (Primary Dx) Nerve block Start: 11-10-2022 Telephone encounter Suzan dinero APRN.SOURCING ENGINEER Work Phone: Neurology Comment on above: Infusion Start: 11-10-2022 End: 11-10-2022 Telemedicine consultation with patient Ольга Aguilar UMANG.SOURCING ENGINEER Work Phone: [facility] Start: 11-10-2022 ambulatory Ramsey Nunn acility:[facility] Start: 10-12-2022 End: 10-12-2022 ambulatory Suzan Uche HECK.SOURCING ENGINEER Work Phone: Neurology Comment on above: Botox Start: 10-12-2022 E-mail encounter alexus brown caregiver Suzan Uche HECK.FADY Work Phone: [facility] Start: 09-29-2022 Telephone encounter Angely rousseau RN Work Phone: [facility] Comment on above: Insurance Authorizat ion (Zomig 5MG nasal spray/) Start: 09-27-2022 ambulatory Logan Barth APR N.SOURCING ENGINEER Work Phone: [facility] Comment on above: My apt Monday Start: 09-16-2022 ambulatory Logan Barth APR N.SOURCING ENGINEER Work Phone: [facility] Start: 09-16-2022 Patient encounter procedure Logan Barth APRN.SOURCING ENGINEER Work Phone: [facility] Comment on above: Appointment Start: 09-12-2022 End: 09-12-2022 ambulatory LOGAN BARTH Facility:[facility] Start: 08-31-2022 End: 08-31-2022 ambulatory LOGAN BARTH Facility:[facility] Start: 08-31-2022 End: 08-31-2022 ambulatory Logan Barth EXPERIMENTAL TECHNICIAN.SOURCING ENGINEER Work Phone: Neurology Comment on above: Chronic migraine w/o aura, not intractable, w/o stat migr (Primary Dx) Start: 08-31-2022 End: 08-31-2022 Telemedicine consultation with patient Logan Barth EXPERIMENTAL TECHNICIAN.SOURCING ENGINEER Work Phone: [facility] Start: 08-09-2022 ambulatory Logan Barth APR N.SOURCING ENGINEER Work Phone: [facility] Comment on above: Pain Start: 08-08-2022 End: 08-08-2022 ambulatory Jesse Borrego MD Work Phone: Neurology Comment on above: 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 with status migrainosus (Primary Dx) Start: 08-08-2022 End: 08-08-2022 Telemedicine consultation with patient Jesse Salima Work Phone: [facility] Start: 08-07-2022 ambulatory Jesse rick MD Work Phone: Neurology Comment on above: Name of medication Start: 07-29-2022 End: 07-29-2022 ambulatory MARIA DEL ROSARIO HAHN Facility:[facility] Start: 07-28-2022 End: 07-28-2022 ambulatory MARIA DEL ROSARIOODETTE HAHN Facility:[facility] Start: 07-28-2022 End: 07-28-2022 ambulatory Infusion Main Chair 8 Work Phone: Neurology Comment on above: 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 with status migrainosus (Primary Dx) Start: 07-27-2022 End: 07-27-2022 ambulatory MARIA DEL ROSARIO HAHN Facility:[facility] Start: 07-21-[address] ZAY BLAS . Facili ty:[facility] Start: 07-14-2022 Encounter for other preprocedural examination DR ZAY BLAS . [facility] Start: 07-12-2022 End: 07-13-[address] ZAY BLAS . Facility:[facility] Start: 07-12-2022 End: 07-13-2022 Encounter for other preprocedural examination DR ZAY BLAS . Facility:[facility] Start: 07-05-2022 ambulatory KRISTOFER Nunn acility:[facility] Start: 06-27-2022 Telephone encounter Logan Tab SCHMITTN.SOURCING ENGINEER Work Phone: Neurology Comment on above: Appointment (infusio n) Start: 06-24-2022 End: 06-24-2022 ambulatory LOGAN BARTH Facility:[facility] Start: 06-20-2022 End: 06-20-2022 ambulatory MANJINDER [...] Evaluation and management of inpatient DINORAH IVY Facility:[facility] Start: 03-31-2022 End: 04-01-[address] ANGÉLICA ARTHUR Facility:[facility] Start: 01-14-2022 End: 01-14-2022 ambulatory SUKHDEEP DOCKERY Facility:[facility] Start: 01-07-2022 End: 01-07-2022 ambulatory MANJINDER DEAL Facility:[facility] Start: 12-19-2021 ambulatory Jesse rick MD Work Phone: Neurology Comment on above: Medication Start: 12-03-2021 End: 12-03-2021 Patient encounter procedure Jesse Borreog MD Work Phone: Neurology Comment on above: Chronic migraine w/o aura, not intractable, w/o stat migr (Primary Dx) Start: 11-10-2021 End: 11-10-2021 ambulatory Nelly Saldaña PA-C Work Phone: Neurology Comment on above: Seizure-like activit y (HCC) (Primary Dx) Start: 11-10-2021 End: 11-10-2021 Telemedicine consultation with patient Nelly Saldaña KRISTOFER Work Phone: [facility] Start: 11-09-2021 ambulatory Tyrone Dolan MD, PhD Work Phone: [facility] Start: 11-09-2021 Patient encounter procedure Tyrone Dolan MD, PhD Work Phone: Neurology Comment on above: Request Georgianaido appoin tment Start: 11-08-2021 ambulatory Tyrone Dolan MD, PhD Work Phone: [facility] Start: 11-08-2021 Patient encounter procedure Tyrone Dolan MD, PhD Work Phone: Neurology Comment on above: Appointment Start: 11-08-2021 Telephone encounter Tyrone Dolan MD, PhD Work Phone: Neurology Comment on above: Orders Start: 11-04-2021 End: 11-04-2021 ambulatory MANJINDER WOOLRICH Facility: Start: 10-29-2021 End: 10-29-2021 ambulatory Tyrone Dolan MD, PhD Work Phone: Neurology Comment on above: Psychogenic nonepile ptic seizure (Primary Dx); Spells of trembling; Chronic intractable headache, unspecified headache type Start: 10-29-2021 End: 10-29-2021 Telemedicine consultation with patient Tyrone Dolan MD, PhD Work Phone: [facility] Start: 10-26-2021 Patient encounter procedure Román Storey MD Work Phone: Neurology Comment on above: Seizure-like activit y (HCC) (Primary Dx) Start: 10-19-2021 End: 10-20-2021 Evaluation and management of inpatient LUCILA MOTA [facility] Start: 10-19-2021 End: 10-20-2021 Evaluation and management of inpatient Lucila Mota MD Work Phone: [facility] Neuro ICU Start: 10-19-2021 End: 10-19-2021 ambulatory Joseph KAVITA Facility:[facility] Start: 10-07-2021 End: 10-07-[address] ZAY BLAS . Facility:[facility] Start: 10-06-2021 End: 10-06-2021 ambulatory SUKHDEEP Kishan MAURERMINOO Facility:[facility] Start: 10-03-2021 End: 10-04-2021 ambulatory MANJINDER DEAL Facility:[facility] Start: 10-01-2021 End: 10-02-2021 Evaluation and management of inpatient DR ANGÉLICA ARTHUR Facility:[facility] Start: 10-01-2021 Encounter for preprocedural laboratory examination DR ZAY BLAS . [facility] Start: 09-29-2021 End: 09-30-[address] [...] 12-24-2020 Emergency department patient visit ANGÉLICA ARTHUR [facility] Start: 12-24-2020 End: 12-24-2020 Emergency department patient visit Vielka Joshua PETIT Work Phone: [facility] ED Comment on above: Migraine without [...] Start: 10-20-2021 EEG VIDEO MONITORING Marcy Perez EXPERIMENTAL TECHNICIAN - [facility] Work Phone: Start: 10-20-2021 BASIC METABOLIC PANE L W/ REFLEX TO MG FOR LOW K Puri Rikki Mota MD Work Phone: Start: 10-20-2021 Blood count complete auto&auto difrntl wbc Lo Perez [facility] Work Phone: Start: 10-20-2021 IMMATURE PLATELET FRACTION Lo Perez [facility] Work Phone: Start: 10-19-2021 Assay of lactate Alexiso radha Perez [facility] Work Phone: Start: 10-19-2021 Ecg routine ecg w/le ast 12 lds w/i&r Lo Perez [facility] Work Phone: Start: 10-19-2021 Mri brain brain stem w/o w/contrast material Lo Perez [facility] Work Phone: Start: 10-19-2021 RESPIRATORY CARE EVALUATION ONLY Lo Perez [facility] Work Phone: Start: 10-01-2021 Resection of Bilater [...] DTaP/Tdap/Td vaccine (7 - Td or Tdap) [facility] Start: 09-20-2025 Urine microalbumin profile DTaP,Tdap,Td Vaccine (7 - Td or Tdap) [facility] Start: 10-29-2022 Adult depression screening assessment DEPRESSION SCREENING [facility] Start: 10-21-2022 Influenza vaccination [facility] Start: 02-20-2022 DEPRESSION ASSESSMENT DEPRESSION ASS [facility] Start: 10-26-2021 End: 10-26-2022 SARS-CoV-2 (COVID-19) RNA [Presence] in Respiratory specimen by SAURABH with probe detection PRE-PROCEDURE & PRE-OPERATIVE COVID Microbiology Routine Seizure-like activity (HCC) Expected: 10/26/2021, Expires: 10/26/2022 [facility] Work Phone: Comment on above: Expected: 10/26/2021 , Expires: 10/26/2022 Start: 10-21-2021 Influenza vaccination B ON [facility] Start: 02-20-2021 DEPRESSION ASSESSMENT DEPRESSION ASS [facility] Start: 10-21-2020 Influenza vaccination Flu [facility] (# [facility] Start: 11-13-2016 PAP TESTING PAP TESTING [facility] Start: 11-13-2016 Screening for malign ant neoplasm of cervix Pap smear [facility] Start: 11-13-2014 Urine microalbumin profile [facility] Start: 11-13-2013 Hepatitis C screening Hepatitis C sc reen [facility] Start: 11-13-2013 HEPATITIS C SCREENING HEPATITIS C SC [facility] Start: 11-13-2013 HIV SCREENING HIV SCREENING [facility] Start: 2011 Screening for Chlamy rose trachomatis Chlamydia screen [facility] Start: 11-13-2010 HIV screening HIV screen [facility] Start: 11-13-2009 PEDS TO ADULT TRANSITION ANNUAL ASSESSMENT PEDS TO ADULT TRANSITION ANNUAL ASSESSMENT [facility] Start: 2007 Adult depression screening assessment DEPRESSION SCREENING [facility] Start: 2007 COVID-19 Vaccine (1) COVID-19 Vaccin e (1) [facility] Phone: Start: 2007 Depression Screen Depression Screen [facility] Start: 2007 PEDS TO ADULT TRANSITION INITIAL DISCUSSION PEDS TO ADULT TRANSITION INITIAL DISCUSSION [facility] Start: 11-13-2006 HPV VACCINE (1 - 2-d ose series) HPV VACCINE (1 - 2-dose series) [facility] Start: 11-13-2004 HPV VACCINE (1 - 2-d ose series) HPV VACCINE (1 - 2-dose series) [facility] Start: 05-13-1996 COVID-19 Vaccine (#1) COVID-19 Vacci ne (#1) [facility] Start: 1995 HEPATITIS B (1 of 3 - 3-dose series) HEPATITIS B (1 of 3 - 3-dose series) [facility] Start: 1995 Hepatitis B Vaccine (1 of 3 - 3-dose series) Hepatitis B Vaccine (1 of 3 - 3-dose series) [facility] Start: 1995 Hepatitis C screening Hepatitis C [facility] [employer] Phone: End: 10-26-2021 Basic Metabolic Panel w/ Reflex to MG Basic Metabolic Panel w/ Reflex to MG Lab Routine Daily for 7 Days starting 10/20/2021 until 10/26/2021 [employer] Phone: Comment on above: Daily for 7 Days sta rting 10/20/2021 until 10/26/2021 End: 10-26-2021 CBC W Auto Differential panel - Blood CBC with Auto Differential Lab Routine Daily for 7 Days starting 10/20/2021 until 10/26/2021, 1 completed [employer] Phone: Comment on above: Daily for 7 Days sta rting 10/20/2021 until 10/26/2021, 1 completed EKG 12 Lead EKG 12 Lead ECG Routine 10/19/2021 5:55 PM EDT [employer] Phone: End: 10-29-2022 EPIL AMBULATORY EEG EPIL AMBULATORY EEG NEUROLOGY Routine Psychogenic nonepileptic seizure Spells of trembling 1 Occurrences starting 10/29/2021 until 10/29/2022 [facility] Work Phone: Comment on above: 1 Occurrences starti ng 10/29/2021 until 10/29/2022 End: 10-26-2022 EPIL EEG LEAD PLACEMENT EPIL EEG LEAD PLACEMENT NEUROLOGY Routine Seizure-like activity (HCC) 1 Occurrences starting 10/26/2021 until 10/26/2022 [facility] Work Phone: Comment on above: 1 Occurrences starti ng 10/26/2021 until 10/26/2022 End: 11-08-2022 EPIL EEG ROUTINE EPIL EEG ROUTINE NEUROLOGY Routine Seizure-like activity (HCC) 1 Occurrences starting 11/08/2021 until 11/08/2022 [facility] Work Phone: Comment on above: 1 Occurrences starti ng 11/08/2021 until 11/08/2022 EPIL VEEG ADMIT TO EMU/PMU EPIL VEEG ADMIT TO EMU/PMU NEUROLOGY Routine Seizure-like activity (HCC) Ordered: 10/26/2021 [facility] Work Phone: Comment on above: Ordered: 10/26/2021 Oxygen therapy [[facility] Data Set] Initiate Oxygen Therapy Protocol Respiratory Care Routine As Needed until discontinued starting 10/19/2021 [facility] Work Phone: Comment on above: As Needed until disc ontinued starting 10/19/2021 [facility] Immunizations Immunization Date Immunization Notes Care Provider Preethi black 12-08-2017 influenza virus vacc ine, unspecified formulation Suzan Driver APRN.SOURCING ENGINEER Work Phone: [facility] Payers Date Payer Category Payer Self-pay 2017 Medicaid [employer] [employer] [place] [employer] [id number] 2017-Present Medicaid [id number] 2013 Medicaid [id number] 2011 Unknown 1995 Unknown [id number] 2.16.840.1.736690.3.579.2.173 1995 Unknown [id number] 2.16.840.1.543883.3.579.2.175 1995 Unknown [id number] 2.16.840.1.399314.3.579.2.727 1995 Unknown [id number] 2.16.840.1.693143.3.579.2.593 1995 Unknown [id number] 2.16.840.1.188607.3.579.2.593 1995 Unknown [id number] 2.16.840.1.255724.3.579.2.593 1995 Unknown [id number] 2.16.840.1.882532.3.579.2.593 1995 Unknown [id number] 2.16.840.1.759095.3.579.2.593 1995 Unknown [id number] 2.16.840.1.234843.3.579.2.593 1995 Unknown [id number] 2.16.840.1.571306.3.579.2.593 1995 Unknown [id number] 2.16.840.1.385313.3.579.2.593 1995 Unknown [id number] 2.16.840.1.734997.3.579.2.593 1995 Unknown [id number] 2.16.840.1.247546.3.579.2.593 1995 Unknown [id number] 2.16.840.1.604032.3.579.2.593 1995 Unknown [id number] 2.16.840.1.687391.3.579.2.593 1995 Unknown [id number] 2.16.840.1.007615.3.579.2.593 1995 Unknown [id number] 2.16.840.1.492728.3.579.2.593 1995 Unknown [id number] 2.16.840.1.861327.3.579.2.593 1995 Unknown [id number]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 documented in this encounter [facility] 11-08-2021 Miscellaneous Notes Order placed. Nelly Saldaña PA-C Good Afternoon, Dr. Dolan placed an Str[facility] Ambulatory EEG for the patient. In order to send over the order to stratus the patient will need an Routine EEG order on file. Can someone please assist with placing the order? Thank you, Chucky documented in this encounter [facility] 10-29-2021 History of Presen t illness Narrative [facility] Epilepsy Center Patient Name: Margaret Nicholson Date [...] complains memory issues/vision issues. OSH admission documentation ([facility] [place]) ADMISSION DATE: 10/19/21 DISCHARGE DATE: 10/20/21 Patient [...] treatment of PNES with specialized CBT at [facility] psychology program. -No driving Patient agreed Consult headache center for headache. Continue to follow up local psychiatrist/conseling for mood disorder, anxiety and PTSD. I spent 58 minutes including face to face on the date of the service, preparing to see the patient, reviewing medical records, completing clinical documentation, counseling, and ordering medications, tests, or procedures. Tyrone Dolan MD PhD Staff, Epilepsy Center [facility] [place], [place] Primary Care Physician: Maria Del Rosario Brown (Historical) Jose Antonio (Inactive) No address on file Referring Physician: SELF Ms. Margaret Nicholson [address] [place] [address] documented in this encounter [facility] 10-26-2021 History of Presen t illness Narrative [facility] Review of Records Patient: Margaret Nicholson Address: [address] [place] [address] Impression: Review of records for Margaret Nicholson, [...] cholecystectomy, caesarean , tubal ligation PRIOR EVALUATIONS: [place] [address] Video EEG ([facility], 10/19/2021-10/20/2021): Normal continuous video-EEG. The events that were captured did not correlate with epileptic seizures. No epileptiform discharges were identified. MRI brain wo/w contrast ([facility], 10/19/2021): Unremarkable MRI of the brain [id number] Recommendations: - Admit to U for VEEG monitoring, diagnostic evaluation Location: [facility] [place] - Visit with epileptologist prior to admission - Additional testing to be considered by epilepsy clinicians Signed: Geri Madera APRN.SOURCING ENGINEER October 26, [address] Storey for review and recommendations. --------- Recommendations (as discussed with Dr. Storey): - Please proceed with the above plan. Please route this encounter to the EMU Scheduling Pool ( P EMU ) or PMU Scheduling Pool ( P PMU ) through LOS & Follow up PHASE 1.0 AND 1.5 ORDER SYNOPSIS Patient: Margaret Nicholson ([id number]) Best contact number: [phone] Insurance: No coverage found. Scheduling Team: Please call for adult patients: Mendoza Torres ([phone]) Chucky Cantor ([phone]) Fabiola Sharpe([phone]) Nikkie Mahajan([phone]) Please call for pediatric patients: Chucky Cantor ([phone]) Fabiola Sharpe ([phone]) Mendoza Torres ([phone]) Nikkie Mahajan([phone]) Appointments and Tests PRE-PROCEDURE & PRE-OPERATIVE COVID [...] off/on office visits. documented in this encounter [facility] 10-20-2021 Hospital Discharg e instructions UMANG [...] sent through Care Everywhere.Non-Epileptic Seizure: General Info ([place])documented in this encounter [facility] Work Phone: 10-20-2021 History of Presen t [...] hysterectomy who presented as a transfer from [facility] for seizure like episodes. Per [...] [facility]. Per documentation, patient had at least 13 seizure like episodes, lasting 10-60 seconds, described as grand mal. She was given 10mg Valium IV, 1g Keppra IV, 720mg Phenobarbital IV. CT Head without contrast unremarkable. Labs unremarkable including normal TSH, lactic, negative UA. Transferred to [facility] Neuro ICU for further management. Per [...] brain mass recently (last 6 months) at [facility] and is supposed to have a brain biopsy in November 2021. Patient recently saw Dr. Vicky De Dios ([facility]) on 08/06/21 for migraines and seizures. [...] On arrival to the Neuro ICU, Adrienne (ARMATURE WINDER) witnessed two brief (~10 seconds) episodes of [...] with patient and mom. Records requested from [facility] where patient states she was seen and [...] hysterectomy who presented as a transfer from [place] [facility] for seizure like episodes. NEUROLOGIC: - [...] UMANG Garcia CNP Neuro Critical Care Pager [phone] 10/20/2021 6:49 AM ALTM is running. Pt [...] at 100%. documented in this encounter [facility] Work Phone: 10-01-2021 Note DISCHARGE SUMMARY DISCHARGE [...] free and no longer on narcotics. [facility] 10-01-2021 Note OPERATIVE NOTE OPERATION DATE: 10/01/2021 PROCEDURE: Total abdominal hysterectomy with partial bilateral salpingectomy with cystoscopy. PREOPERATIVE DIAGNOSIS: Menorrhagia, dysmenorrhea, dyspareunia, pelvic pain. POSTOPERATIVE DIAGNOSIS: Menorrhagia, dysmenorrhea, dyspareunia, pelvic pain. ANESTHESIA: General. SURGEON: Zay Blas D.O. RIGHT OF WAY MAN: VERNA Yap URINE OUTPUT: Yellow and clear. [...] Recovery Room in stable condition. ?? [facility] 08-14-2021 Note PROCEDURE: US PELVIS TRANSVAG, [...] by: NICOLE MEDELLIN Date: 2021-08-14 10:19 [facility] 12-24-2020 Hospital Vielka Griffiths DO - 12/24/2020 Continue all home medications as prescribed. Follow up with your family doctor and neurologist. Return to the emergency department for new, worsening or worrisome symptoms. documented in this encounter [employer] Phone: Evaluation note Diagnosis Migraine without status migrainosus, not intractable, unspecified migraine type- Primary documented in this encounter [employer] Phone: evaluation note* Diagnosis Seizure-like activity (HCC)- Primary Other convulsions Seizure disorder (HCC) Unspecified epilepsy without mention of intractable epilepsy Psychogenic nonepileptic seizure documented in this encounter JEREMIAH SINGHBAKARI [employer] Phone: evaluation note* Diagnosis Seizure-like activity (HCC)- Primary Other convulsions [facility] encounter [facility] Diagnosis Psychogenic nonepileptic seizure- Primary Spells of trembling Abnormal involuntary movements Chronic intractable headache, unspecified headache type [facility] Diagnosis Seizure-like activity (HCC)- Primary Other convulsions Psychogenic nonepileptic seizure documented in this encounter [facility]* Diagnosis Seizure-like activity (HCC)- Primary Other convulsions [facility]* Diagnosis Chronic migraine w/o aura, not intractable, w/o stat migr- Primary [facility]* Diagnosis 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 with status migrainosus- Primary Chronic migraine without aura, with intractable migraine, so stated, with status migrainosus documented in this encounter [facility]* Diagnosis 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 with status migrainosus- Primary Chronic migraine without aura, with intractable migraine, so stated, with status migrainosus documented in this encounter [facility]* Diagnosis Chronic migraine w/o aura, not intractable, w/o stat migr- Primary [facility]* Diagnosis 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 with status migrainosus- Primary Chronic migraine without aura, with intractable migraine, so stated, with status migrainosus [facility]* Diagnosis 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 with status migrainosus- Primary Chronic migraine without aura, with intractable migraine, so stated, with status migrainosus [facility]* Diagnosis Chronic migraine w/o aura, not intractable, w/o stat migr Cervicalgia Migraine without aura and without status migrainosus, not intractable Migraine without aura, without mention of intractable migraine without mention of status migrainosus documented in this encounter [facility] for referral (narrative)* Outpatient Procedure (Routine) - Pending Review Specialty Diagnoses / Procedures Referred By Contac t Referred To [facility] Diagnoses Seizure-like activity (HCC) Procedures EPIL EEG LEAD PLACEMENT EEG EXTENDED MONITORING 61-119 MINUTES ELECTROENCEPHALOGRAM REC COMA/SLEEP ONLY Geri Madera APRN.CNP [address] [place] [address] [place] [address] Referral ID Status Reason Start Date Expiration Date Visits Requested Visits Authorized [id number] Pending Review Auto-Generat ed Referral 10/26/2021 10/26/2022 1 1 [facility] for referral (narrative)* Outpatient Procedure (Routine) - Pending Review Specialty Diagnoses / Procedures Referred By Contac t Referred To [facility] Diagnoses Psychogenic nonepileptic seizure Spells of trembling Procedures EPIL AMBULATORY EEG EEG COMPLETE STD PHYS/QHP&GT;84 HR W/O Tyrone Diaz MD, PhD [id number] [place] [address] Referral ID Status Reason Start Date Expiration Date Visits Requested Visits Authorized [id number] Pending Review Auto-Generat ed Referral 10/29/2021 10/29/2022 1 1 * Outpatient Procedure (Routine) - Pending Review Specialty Diagnoses / Procedures Referred By Contac t Referred To [facility] Diagnoses Psychogenic nonepileptic seizure Spells of trembling Procedures EPIL AMBULATORY EEG EEG COMPLETE STD PHYS/QHP&GT;84 HR W/O Tyrone Diaz MD, PhD [id number] [place] [address] Referral ID Status Reason Start Date Expiration Date Visits Requested Visits Authorized [id number] Pending Review Auto-Generat ed Referral 10/29/2021 10/29/2022 1 1 * Consult, Test, Treat (Routine) - Authorized Specialty Diagnoses / Procedures Referred By Contac t Referred To Contact Diagnoses Chronic intractable headache, unspecified headache type Procedures CONSULT TO HEADACHE CLINIC OFFICE/OUTPATIENT [facility] MDM 60-74 MINUTES Tyrone Dolan MD, PhD [address] [facility] [address] [place] [address] Referral ID Status Reason Start Date Expiration Date Visits Requested Visits Authorized [id number] Authorized PCP Requested Referral 10/29/2021 10/29/2022 1 1 [facility] Procedure (Routine) - Pending Review Specialty Diagnoses / Procedures Referred By Contac t Referred To Contact [facility] Diagnoses Seizure-like activity (HCC) Procedures EPIL EEG ROUTINE ELECTROENCEPHALOGRAM REC COMA/SLEEP ONLY Nelly Saldaña PA-C [address] [place] [address] [place] [address] Referral ID Status Reason Start Date Expiration Date Visits Requested Visits Authorized [id number] Pending Review Auto-Generat ed Referral 11/08/2021 11/08/2022 1 1 [facility] Advance Directives No Advanced Directives Records FoundDocuments on File Type Date Recorded Patient Project Estimator Expl anation ACP-Advance Directive ACP-Power of Solar Energy Installation Manager Latest Code Status on File Code Status [...] t Referred To Contact Samples, MD Jesse [address] [place] [address] Referral ID Status Reason Start Date Expiration Date Visits Re quested Visits Authorized [id number] Closed 1 1 Additional Source Comments Source Comments (unrecognize d section and content) In the event this informatio n is protected by the Federal Confidentiality of Alcohol and Drug Abuse Patient Records regulations: The Federal rules restrict any use of the information to criminally investigate or prosecute any alcohol or drug abuse patient.[facility] event this information is protected by the Federal Confidentiality of Alcohol and Drug Abuse Patient Records regulations: The Federal rules restrict any use of the information to criminally investigate or prosecute any alcohol or drug abuse patient.[facility] the event this information is protected by the Federal Confidentiality of Alcohol and Drug Abuse Patient Records regulations: The Federal rules restrict any use of the information to criminally investigate or prosecute any alcohol or drug abuse patient.[facility] the event this information is protected by the Federal Confidentiality of Alcohol and Drug Abuse Patient Records regulations: The Federal rules restrict any use of the information to criminally investigate or prosecute any alcohol or drug abuse patient.[facility] the event this information is protected by the Federal Confidentiality of Alcohol and Drug Abuse Patient Records regulations: The Federal rules restrict any use of the information to criminally investigate or prosecute any alcohol or drug abuse patient.[facility] the event this information is protected by the Federal Confidentiality of Alcohol and Drug Abuse Patient Records regulations: The Federal rules restrict any use of the information to criminally investigate or prosecute any alcohol or drug abuse patient.[facility] the event this information is protected by the Federal Confidentiality of Alcohol and Drug Abuse Patient Records regulations: The Federal rules restrict any use of the information to criminally investigate or prosecute any alcohol or drug abuse patient.[facility] the event this information is protected by the Federal Confidentiality of Alcohol and Drug Abuse Patient Records regulations: The Federal rules restrict any use of the information to criminally investigate or prosecute any alcohol or drug abuse patient.[facility] the event this information is protected by the Federal Confidentiality of Alcohol and Drug Abuse Patient Records regulations: The Federal rules restrict any use of the information to criminally investigate or prosecute any alcohol or drug abuse patient.[facility] the event this information is protected by the Federal Confidentiality of Alcohol and Drug Abuse Patient Records regulations: The Federal rules restrict any use of the information to criminally investigate or prosecute any alcohol or drug abuse patient.[facility] the event this information is protected by the Federal Confidentiality of Alcohol and Drug Abuse Patient Records regulations: The Federal rules restrict any use of the information to criminally investigate or prosecute any alcohol or drug abuse patient.[facility] the event this information is protected by the Federal Confidentiality of Alcohol and Drug Abuse Patient Records regulations: The Federal rules restrict any use of the information to criminally investigate or prosecute any alcohol or drug abuse patient.[facility] the event this information is protected by the Federal Confidentiality of Alcohol and Drug Abuse Patient Records regulations: The Federal rules restrict any use of the information to criminally investigate or prosecute any alcohol or drug abuse patient.[facility] the event this information is protected by the Federal Confidentiality of Alcohol and Drug Abuse Patient Records regulations: The Federal rules restrict any use of the information to criminally investigate or prosecute any alcohol or drug abuse patient.[facility] the event this information is protected by the Federal Confidentiality of Alcohol and Drug Abuse Patient Records regulations: The Federal rules restrict any use of the information to criminally investigate or prosecute any alcohol or drug abuse patient.[facility] the event this information is protected by the Federal Confidentiality of Alcohol and Drug Abuse Patient Records regulations: The Federal rules restrict any use of the information to criminally investigate or prosecute any alcohol or drug abuse patient.[facility] the event this information is protected by the Federal Confidentiality of Alcohol and Drug Abuse Patient Records regulations: The Federal rules restrict any use of the information to criminally investigate or prosecute any alcohol or drug abuse patient.[facility] the event this information is protected by the Federal Confidentiality of Alcohol and Drug Abuse Patient Records regulations: The Federal rules restrict any use of the information to criminally investigate or prosecute any alcohol or drug abuse patient.[facility] the event this information is protected by the Federal Confidentiality of Alcohol and Drug Abuse Patient Records regulations: The Federal rules restrict any use of the information to criminally investigate or prosecute any alcohol or drug abuse patient.[facility] the event this information is protected by the Federal Confidentiality of Alcohol and Drug Abuse Patient Records regulations: The Federal rules restrict any use of the information to criminally investigate or prosecute any alcohol or drug abuse patient.[facility] HospitalIn the event this information is protected by the Federal Confidentiality of Alcohol and Drug Abuse Patient Records regulations: The Federal rules restrict any use of the information to criminally investigate or prosecute any alcohol or drug abuse patient.[facility] HospitalIn the event this information is protected by the Federal Confidentiality of Alcohol and Drug Abuse Patient Records regulations: The Federal rules restrict any use of the information to criminally investigate or prosecute any alcohol or drug abuse patient.[facility] HospitalIn the event this information is protected by the Federal Confidentiality of Alcohol and Drug Abuse Patient Records regulations: The Federal rules restrict any use of the information to criminally investigate or prosecute any alcohol or drug abuse patient.[facility] the event this information is protected by the Federal Confidentiality of Alcohol and Drug Abuse Patient Records regulations: The Federal rules restrict any use of the information to criminally investigate or prosecute any alcohol or drug abuse patient.[facility]In the event this information is protected by the Federal Confidentiality of Alcohol and Drug Abuse Patient Records regulations: The Federal rules restrict any use of the information to criminally investigate or prosecute any alcohol or drug abuse patient.[facility]In the event this information is protected by the Federal Confidentiality of Alcohol and Drug Abuse Patient Records regulations: The Federal rules restrict any use of the information to criminally investigate or prosecute any alcohol or drug abuse patient.[facility]In the event this information is protected by the Federal Confidentiality of Alcohol and Drug Abuse Patient Records regulations: The Federal rules restrict any use of the information to criminally investigate or prosecute any alcohol or drug abuse patient.[facility]In the event this information is protected by the Federal Confidentiality of Alcohol and Drug Abuse Patient Records regulations: The Federal rules restrict any use of the information to criminally investigate or prosecute any alcohol or drug abuse patient.[facility] Reason for Visit (unrecogniz ed section and content) Reason Comments Future Appointment [place], [place], Any Reason Comments Migraine seen at [facility] yest erday for Migrane and D & [...] INFUSION HEADACHE Maria Del Rosario Hahn MD [address] [place] [address] Neur Headache Main [address] [place] [address] Referral ID Status Reason Start Date Expiration Date Visits Re quested Visits Authorized [id number] Closed 07/28/2022 09/26/2022 1 1 Reason Comments Chronic Migraine Reason Comments Chronic Migraine Reason Comments Insurance Authorization Zomig 5MG nasal spray Reason Comments Infusion Reason Comments Migraine Specialty Diagnoses / Procedures Referred By Contac t Referred To Contact Neurology / HEADACHE Diagnoses POSSIBLE DHE/WAITING FOR ORDERS Procedures INFUSION HEADACHE Self Neur Headache Main [address] [id number] Referral ID Status Reason Start Date Expiration Date V isits Requested Visits Authorized [id number] Authorized 11/10/2022 02/08/2023 1 99 Reason Onset [...] content) DATE CREATED AUTHOR 12/26/2020 Maggie Espinal [facility] DATE CREATED AUTHOR AUTHOR'S ORGANIZ ATION 10/25/2021 [facility] DATE CREATED AUTHOR AUTHOR'S ORGANIZ ATION 05/26/2022 [facility] DATE CREATED AUTHOR AUTHOR'S ORGANIZ ATION 08/02/2022 [facility] DATE CREATED AUTHOR AUTHOR'S ORGANIZ ATION 02/10/2023 [facility] DATE CREATED AUTHOR AUTHOR'S ORGANIZ ATION 02/21/2023 [facility] DATE CREATED AUTHOR AUTHOR'S ORGANIZ ATION 03/01/2023 [facility] Ordered Prescriptions (unrec ognized section and content) Prescription Sig Dispensed Refills Start Date End Da te lamoTRIgine (LAMICTAL) 25 MG tablet Take 2 tablets by mouth daily 30 tablet 3 10/21/2021 Care Teams (unrecognized sec tion and content) Social Science Instructor Relationship Specialty Start Date End Date Angélica Arthur, EXPERIMENTAL TECHNICIAN - SOURCING ENGINEER [address] [place] [address] PCP - General Nurse Practitioner 12/24/20 Social Science Instructor Relationship Specialty Start Date End Date Hoy, Maria Del Rosario M (Historical) PCP - General 05/21/13 Social Science Instructor Relationship Specialty Start Date End Date Hoy, Maria Del Rosario M (Historical) PCP - General 05/21/13 Social Science Instructor Relationship Specialty Start Date End Date Hoy, Maria Del Rosario M (Historical) PCP - General 05/21/13 Social Science Instructor Relationship Specialty Start Date End Date Hoy, Maria Del Rosario M (Historical) PCP - General 05/21/13 Social Science Instructor Relationship Specialty Start Date End Date Hoy, Maria Del Rosario M (Historical) PCP - General 05/21/13 Social Science Instructor Relationship Specialty Start Date End Date Hoy, Maria Del Rosario M (Historical) PCP - General 05/21/13 Social Science Instructor Relationship Specialty Start Date End Date Hoy, Maria Del Rosario M (Historical) PCP - General 05/21/13 Social Science Instructor Relationship Specialty Start Date End Date Hoy, Maria Del Rosario M (Historical) PCP - General 05/21/13 Social Science Instructor Relationship Specialty Start Date End Date Hoy, Maria Del Rosario M (Historical) PCP - General 05/21/13 Social Science Instructor Relationship Specialty Start Date End Date Hoy, Maria Del Rosario M (Historical) PCP - General 05/21/13 Social Science Instructor Relationship Specialty Start Date End Date Hoy, Maria Del Rosario M (Historical) PCP - General 05/21/13 Social Science Instructor Relationship Specialty Start Date End Date Hoy, Maria Del Rosario M (Historical) PCP - General 05/21/13 Social Science Instructor Relationship Specialty Start Date End Date Hoy, Maria Del Rosario M (Historical) PCP - General 05/21/13 Social Science Instructor Relationship Specialty Start Date End Date Hoy, Maria Del Rosario M (Historical) PCP - General 05/21/13 Social Science Instructor Relationship Specialty Start Date End Date Hoy, Maria Del Rosario M (Historical) PCP - General 05/21/13 Social Science Instructor Relationship Specialty Start Date End Date Hoy, Maria Edl Rosario M (Historical) PCP - General 05/21/13 Social Science Instructor Relationship Specialty Start Date End Date Hoy, Maria Del Rosario M (Historical) PCP - General 05/21/13 Social Science Instructor Relationship Specialty Start Date End Date Hoy, Maria Del Rosario M (Historical) PCP - General 05/21/13 Social Science Instructor Relationship Specialty Start Date End Date Hoy, Maria Del Rosario M (Historical) PCP - General 05/21/13 Social Science Instructor Relationship Specialty Start Date End Date Hoy, Maria Del Rosario M (Historical) PCP - General 05/21/13 Social Science Instructor Relationship Specialty Start Date End Date Hoy, Maria Del Rosario M (Historical) PCP - General 05/21/13 Social Science Instructor Relationship Specialty Start Date End Date Hoy, [...] BE BASED ON THE PRIMARY CLINICAL RECORDS. [facility]. provides no warranty or guarantee of the accuracy or completeness of information in this document.
--- NOTE | 2023-03-03 14:10 | P.HP_ITS ---
<Statement entered by Abdifatah Brady MD - 03/03/23 18:24> This documentation has been reviewed and approved. Agree with assesment and plan - on my exam - jaden salvadorl with some wheezing but overall sounded improved from previous H&P: HPI History of Present Illness Chief complaint: SHORTNESS OF BREATH Narrative: 03/03/23 1400 This is a 27 yo female pt w/ a PMH as outlined below including bipolar disorder, asthma, and migraine headaches who presented to the ED c/o a 7 day course of URI symptoms and SOB. She reports onset of rhinorrhea, sore throat, and migraine headaches 7-10 days ago. 1 week ago she began to experience shortness of breath which has been persistent and unrelenting. She has been using frequent nebulizer breathing treatments and taking all of her other medications as prescribed. 5 days ago she was seen in an urgent care and was prescribed Cipro and prednisone without significant improvement in symptoms. Workup in the ED was relatively benign but did show mild leukocytosis (12.1), likely secondary to steroid administration. Covid, RSV, and Influenza swabs are negative. A CXR was unremarkable. She was wheezing on arrival to ED and was treated with Solu-Medrol and breathing treatments with some improvement in her respiratory status. The patient continues to complain of dyspnea and shortness of breath at rest with tachypnea noted and she was admitted to the hospitalist service in observation. At the time of my exam the patient is resting comfortably in bed. She is still mildly tachypneic with mild abdominal accessory muscle use noted. Her lung sounds are clear but very diminished throughout. She reports that previous administration of magnesium sulfate improved her symptoms and we will give that again today in an attempt to improve her respiratory status. Review of Systems ROS Status of ROS 10 or more systems reviewed and unremark able except as noted in history and below [facility] Medical History (Updated 03/03/23 @ 15:14 by Eloina Ledezma NP) Chronic pain disorder ?G89.4 - Chronic pain syndrome (ICD-10) Conjunctivitis ?H10.9 - Unspecified conjunctivitis (ICD-10) Migraine ?G43.909 - Migraine, unspecified, not intractable, without status migrainosus (ICD-10) Viral upper respiratory tract infection with cough ?J06.9 - Acute upper respiratory infection, unspecified (ICD-10) Seizure disorder ?G40.909 - Epilepsy, unspecified, not intractable, without status epilepticus (ICD-10) Bipolar disorder ?F31.9 - Bipolar disorder, unspecified (ICD-10) Pelvic pain ?R10.2 - Pelvic and perineal pain (ICD-10) Headache ?R51.9 - Headache, unspecified (ICD-10) Bilateral occipital neuralgia ?M54.81 - Occipital neuralgia (ICD-10) Migraine ?G43.909 - Migraine, unspecified, not intractable, without status migrainosus (ICD-10) Post-op pain ?G89.18 - Other acute postprocedural pain (ICD-10) Combative behavior ?R46.89 - Other symptoms and signs involving appearance and behavior (ICD-10) Postoperative nausea and vomiting ?R11.2 - Nausea with vomiting, unspecified (ICD-10) ?Z98.890 - Other specified postprocedural states (ICD-10) Vaginal bleeding ?N93.9 - Abnormal uterine and vaginal bleeding, unspecified (ICD-10) Abscess of vagina ?N76.0 - Acute vaginitis (ICD-10) PCOS (polycystic ovarian syndrome) ?E28.2 - Polycystic ovarian syndrome (ICD-10) Mitral valve prolapse ?I34.1 - Nonrheumatic mitral (valve) prolapse (ICD-10) Vaginal delivery ?O80 - Encounter for full-term uncomplicated delivery (ICD-10) Nausea ?R11.0 - Nausea (ICD-10) GERD (gastroesophageal reflux disease) ?K21.9 - Gastro-esophageal reflux disease without esophagitis (ICD-10) Depression ?F32.A - Depression, unspecified (ICD-10) Blood in urine ?R31.9 - Hematuria, unspecified (ICD-10) Acne ?L70.9 - Acne, unspecified (ICD-10) Dyspareunia Brain mass ?G93.89 - Other specified disorders of brain (ICD-10) Pneumonia ?J18.9 - Pneumonia, unspecified organism (ICD-10) Kidney stones ?N20.0 - Calculus of kidney (ICD-10) COVID-19 ?U07.1 - COVID-19 (ICD-10) Bronchitis ?J40 - Bronchitis, not specified as acute or chronic (ICD-10) Asthma ?J45.909 - Unspecified asthma, uncomplicated (ICD-10) Stress incontinence ?N39.3 - Stress incontinence (female) (male) (ICD-10) Dysuria ?R30.0 - Dysuria (ICD-10) Seizure ?R56.9 - Unspecified convulsions (ICD-10) Neck pain ?M54.2 - Cervicalgia (ICD-10) Migraine ?G43.909 - Migraine, unspecified, not intractable, without status migrainosus (ICD-10) Low back pain ?M54.50 - Low back pain, unspecified (ICD-10) Head injury ?S09.90XA - Unspecified injury of head, initial encounter (ICD-10) Anxiety ?F41.9 - Anxiety disorder, unspecified (ICD-10) Surgical History (Updated 01/06/23 @ 12:50 by Rocio Schwartz NP) H/O laparoscopy (07/21/22) ?Z98.890 - Other specified postprocedural states (ICD-10) S/P RAVI-BSO ?Z90.710 - Acquired absence of both cervix and uterus (ICD-10) ?Z90.722 - Acquired absence of ovaries, bilateral (ICD-10) ?Z90.79 - Acquired absence of other genital organ(s) (ICD-10) Hx laparoscopic cholecystectomy ?Z90.49 - Acquired absence of other specified parts of digestive tract (ICD- 10) H/O: ?Z98.891 - History of uterine scar from previous surgery (ICD-10) History of appendectomy ?Z90.49 - Acquired absence of other specified parts of digestive tract (ICD- 10) Family History (Updated 07/20/22 @ 17:40 by Irlanda Weiss RN) Other Acid reflux Acute renal disease Afib Chromosomal disorder Delayed developmental milestones Diabetes Family history of hypertension High cholesterol Neuro-irritability due to autonomic dysfunction Primary ciliary dyskinesia due to transposition of ciliary microtubules Pulmonary aspiration Tachycardia Social History (Updated 01/20/23 @ 08:49 by Joyce Zhong) Within the past year, how often did you have a drink containing alcohol: never Score interpretation: A score less than 3 is consistent with normal alcohol consumption. 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 level of school completed/degree received: high school graduate Gender Identity: female Meds Home Medications and Allergies Home Medications Medication Instructions Recorded Confirmed Type baclofen 10 mg tablet 10 mg PO TID spasms 07/20/22 03/03/23 History diazepam 10 mg tablet 10 mg PO BID 07/20/22 03/03/23 History epinephrine 0.3 mg/0.3 mL 0.3 mg IM Q10M PRN anaphylaxis 07/20/22 03/03/23 History injection, auto-injector estradiol 0.5 mg tablet 0.5 mg PO QAM 01/06/23 03/03/23 History diphenhydramine HCl 25 mg capsule 75 mg PO Q6H PRN migraine headache 01/26/23 03/03/23 History (Benadryl) ibuprofen 800 mg tablet 800 mg PO Q8H PRN pain 01/26/23 03/03/23 History lamotrigine 200 mg tablet 200 mg PO BID 01/26/23 03/03/23 History lithium carbonate 300 mg capsule 600 mg PO BID 01/26/23 03/03/23 History orphenadrine citrate 100 mg 100 mg PO BID PRN migraine 01/26/23 03/03/23 History tablet,extended release promethazine 25 mg tablet 12.5 mg PO Q6H PRN nausea and 01/26/23 03/03/23 History vomiting ondansetron 4 mg disintegrating 4 mg PO Q6H PRN nausea and 02/26/23 03/03/23 Rx tablet vomiting #20 tabs albuterol sulfate 2.5 mg/3 mL 2.5 mg inhalation Q4H PRN 03/03/23 03/03/23 History (0.083 %) solution for nebulization shortness of breath or wheezing ketorolac 10 mg tablet 10 mg PO Q6H PRN migraine headache 03/03/23 03/03/23 History magnesium oxide 400 mg PO .qhs 03/03/23 03/03/23 History trazodone 300 mg tablet 300 mg PO .qhs 03/03/23 03/03/23 History Allergies Allergy/AdvReac Type Severity Reaction Status Date / Time buspirone Allergy Hives Verified 03/03/23 09:09 carbamazepine Allergy Unknown Verified 03/03/23 09:09 levetiracetam [From Keppra] Allergy ITCHING Verified 03/03/23 09:09 azithromycin [From Zithromax] AdvReac Intermediate Hives Verified 03/03/23 09:09 bee venom protein (honey bee) AdvReac Intermediate Hives Verified 03/03/23 09:09 metoclopramide [From Reglan] AdvReac Intermediate panic Verified 03/03/23 09:09 adhesive tape AdvReac Mild Rash Verified 03/03/23 09:09 cephalexin [From Keflex] AdvReac Mild Hives Verified 03/03/23 09:09 dextromethorphan AdvReac Mild Unknown Verified 03/03/23 09:09 [From [place] DM] pyrilamine [From [place] DM] AdvReac Mild Unknown Verified 03/03/23 09:09 propranolol AdvReac Hives Verified 03/03/23 09:09 Exam Constitutional Vital Signs, click to edit/add: Last Vital Signs Temp 97.0 F L 03/03/23 11:56 Pulse 110 H 03/03/23 11:56 Resp 22 03/03/23 11:56 BP 132/91 03/03/23 11:56 Pulse Ox 94 L 03/03/23 14:08 O2 Del Method Room Air 03/03/23 14:08 Common normals: no apparent distress, oriented x3, alert and well nourished General appearance: cooperative Orientation/consciousness: Yes awake HENGA Common normals: normocephalic, head/scalp atraumatic, hearing grossly normal bilaterally, external nose normal and moist oral mucous membranes Eye Common normals: PERRL, EOMs intact bilaterally, conjunctivae normal and no scleral icterus Alignment: alignment normal Eyelid: eyelids normal Neck & C-Spine Common normals: full ROM, supple and no JVD Chest Common normals: inspection of chest normal Chest: symmetrical chest wall rise Respiratory Common normals: normal respiratory effort, no retractions, no use of accessory muscles and clear to auscultation bilaterally Auscultation: diminished lung sounds (Tight throughout) Cardio Common normals: no JVD, regular rate, regular rhythm, S1 normal heart sound, S2 normal heart sound, no gallops, no clicks, no murmurs, no rub and peripheral pulses 2+ throughout GI Common normals: Normal to inspection, nondistended, normoactive bowel sounds present, soft to palpation, non-tender, no hepatosplenomegaly, no masses and no bruits Bladder/kidney exam: bladder normal to palpation Back & Pelvis Common normals: thoracic and lumbar spine normal to inspection Extremity Common normals: normal capillary refill and no pedal edema General: normal exam except as noted; no clubbing and no cyanosis Neuro Robyn Coma Scale: GCS not evaluated Common normals: CN's II-XII intact bilaterally, moves all extremities, no focal motor deficits and no sensory deficits noted Speech: speech normal Motor exam: strength 5/5 throughout Psych Common normals: mental status grossly normal, thought process normal, affect normal and activity/motor behavior normal Results Labs Labs: Short CBC 03/03/23 Range/Units 10:15 WBC 12.1 H (4.0-11.0) 10^3/uL Hgb 11.7 L (12.0-16.0) g/dL Hct 35.3 L (36.0-48.0) % Plt Count 219 (150-450) 10^3/uL BMP 03/03/23 10:15 Sodium 141 Potassium 4.1 Chloride 106 Carbon Dioxide 23.3 BUN 11.0 Creatinine 0.60 Glucose 91 Calcium 8.7 Pulse Oximetry Attestation: I have reviewed the pertinent pulse oximetry results. Imaging Chest x-ray: Attestation: I have reviewed the pertinent imaging results. Radiologist's impression: IMPRESSION: 1. No acute findings Assessment and Plan Assessment and Plan (1) Acute exacerbation of extrinsic asthma: Assessment and Plan: ACUTE * Adm observation * Mild asthma exacerbation without hypoxia or reactive airway refractory to treatment * Persistent increased work of breathing/dyspnea * Scheduled duonebs and pulmicort nebs * PRN Albuterol nebs * Mag Sulfate 2gm IVPB now to improve smooth muscle relaxation, thus open airways * Solumedrol 125 mg x 1 given in ED, follow with 40 mg q6h * No indication for antibiotics at this time. Leukocytosis likely 2/2 to steroid administration. * CBC, CMP in AM (2) Migraine: Assessment and Plan: CHRONIC * Continue home PRN Benadryl and ibuprofen (3) Bipolar disorder: Assessment and Plan: CHRONIC * Continue home Lamotrigine and lithium Qualifiers: Active/Remission status: in full remission Most recent bipolar episode type: unspecified type Qualified Code(s): F31.70 - Bipolar disorder, currently in remission, most recent episode unspecified (4) Seizure disorder: Assessment and Plan: CHRONIC * Stress induced * Continue home lamotrigine and lithium (5) Chronic pain disorder: Assessment and Plan: CHRONIC * Continue home baclofen and orphenadrine
[2023-03-03] MEDS: KETOROLAC TROMETHAMINE 10 MG TABLET PO (15:31)
[2023-03-03] MEDS: ENOXAPARIN SODIUM 40 MG/0.4 ML SYRINGE SUBQ (15:32)
[2023-03-03] MEDS: DIPHENHYDRAMINE HCL 25 MG CAPSULE 75 MG PO (15:32)
[2023-03-03] MEDS: MAGNESIUM SULFATE IN WATER 2 GM/50 ML PREMIX IV (15:32)
[2023-03-03] MEDS: METHYLPREDNISOLONE SOD SUCC PF 40 MG/ML VIAL IVP (15:35)
[2023-03-03 17:01] LABS: Adenovirus NOT DETECTED (NOT DETECTE); Bordetella parapertussis NOT DETECTED (NOT DETECTE); Coronavirus 229E NOT DETECTED (NOT DETECTE); Coronavirus HKU1 NOT DETECTED (NOT DETECTE); Coronavirus NL63 NOT DETECTED (NOT DETECTE); Coronavirus OC43 NOT DETECTED (NOT DETECTE); Human Metapneumovirus NOT DETECTED (NOT DETECTE); Human Rhinovirus/Enterovirus NOT DETECTED (NOT DETECTE); Influenza A NOT DETECTED (NOT DETECTE); Influenza B NOT DETECTED (NOT DETECTE); Mycoplasma pneumoniae NOT DETECTED (NOT DETECTE); Parainfluenza Virus 1 NOT DETECTED (NOT DETECTE); Parainfluenza Virus 2 NOT DETECTED (NOT DETECTE); Parainfluenza Virus 3 NOT DETECTED (NOT DETECTE); Parainfluenza Virus 4 NOT DETECTED (NOT DETECTE); Respiratory Syncytial Virus NOT DETECTED (NOT DETECTE); SARS-CoV-2 NOT DETECTED (NOT DETECTE)
[2023-03-03] MEDS: BENZONATATE 100 MG CAPSULE 200 MG PO ×2 (17:53→22:03)
[2023-03-03] MEDS: LEVOFLOXACIN IN DEXTROSE 5 % 750 MG/150 ML IV.SOLN 100 MG IV (17:55)
[2023-03-03] MEDS: LAMOTRIGINE 100 MG TABLET 200 MG PO (21:21)
[2023-03-03] MEDS: LITHIUM CARBONATE 150 MG CAPSULE 600 MG PO (21:21)
[2023-03-03] MEDS: DIAZEPAM 5 MG TABLET 10 MG PO (21:21)
[2023-03-03] MEDS: BACLOFEN 10 MG TABLET PO (21:21)
[2023-03-03] MEDS: METHYLPREDNISOLONE SOD SUCC PF 40 MG/ML VIAL 125 MG IVP (21:22)
[2023-03-03] MEDS: TRAZODONE HCL 150 MG TABLET 300 MG PO (21:22)
[2023-03-03] MEDS: BUDESONIDE 0.5 MG/2 ML AMPULE NEB IH (23:27)
[2023-03-04] MEDS: METHYLPREDNISOLONE SOD SUCC PF 40 MG/ML VIAL 125 MG IVP ×2 (03:00→08:34)
[2023-03-04 04:00] VITALS: PULSE 87; RESP 16; O2SAT 95
[2023-03-04] MEDS: IPRATROPIUM/ALBUTEROL SULFATE 3 ML AMPUL.NEB IH ×3 (04:00→11:18)
[2023-03-04] MEDS: BENZONATATE 100 MG CAPSULE 200 MG PO (05:34)
[2023-03-04] MEDS: BACLOFEN 10 MG TABLET PO (05:34)
[2023-03-04 05:43] VITALS: BP 91/55; PULSE 102; RESP 20; TEMP 36.5; O2SAT 100
[2023-03-04 05:52] LABS: Basophils Percent Auto 0.1 % (0.2-2.0); Eosinophils Percent Auto 0.1 % (0.9-7.0); Hematocrit 38.9 % (36.0-48.0); Hemoglobin 12.7 g/dL (12.0-16.0); Immature Granulocytes Abs Auto 0.12 10^3/uL (0.00-0.03); Immature Granulocytes Pct Auto 0.8 % (0.0-0.5); Lymphocytes Absolute Auto 0.7 10^3/uL (1.2-3.8); Lymphocytes Percent Auto 4.6 % (20.5-60.0); Mean Corpuscular HGB Conc 32.6 g/dL (29.9-35.2); Mean Corpuscular Hemoglobin 29.4 pg (26.7-34.0); Mean Platelet Volume 10.2 fL (9.5-13.5); Monocytes Absolute Auto 0.1 10^3/uL (0.3-0.8); Monocytes Percent Auto 0.9 % (1.7-12.0); Neutrophils Percent Auto 93.5 % (43.0-75.0); Platelet Count 263 10^3/uL (150-450); Red Blood Count 4.32 10^6/uL (4.20-5.40); Red Cell Distribution Width 12.9 % (11.0-15.0); White Blood Count 14.9 10^3/uL (4.0-11.0)
[2023-03-04 06:04] LABS: Alanine Aminotransferase 28 U/L (14-59); Albumin Globulin Ratio 0.9; Albumin Level 3.5 g/dL (3.4-5.0); Alkaline Phosphatase 81 U/L (46-116); Anion Gap 17.9; Aspartate Amino Transferase <5 U/L (15-37); BUN Creatinine Ratio 14.3; Bilirubin Total 0.2 mg/dL (0.2-1.0); Carbon Dioxide 20.2 mmol/L (21.0-32.0); Chloride 106 mmol/L (98-107); Estimated GFR (African America >60 (>=60); Estimated GFR (Non-African Ame >60 (>=60); Globulin 3.9 g/dL; Glucose 195 mg/dL (74-106); Potassium 4.1 mmol/L (3.5-5.1); Sodium 140 mmol/L (136-145); Total Protein 7.4 g/dL (6.4-8.2)
[2023-03-04 07:56] VITALS: O2SAT 97
[2023-03-04] MEDS: LAMOTRIGINE 100 MG TABLET 200 MG PO (08:33)
[2023-03-04] MEDS: ESTRADIOL 1 MG TABLET 0.5 MG PO (08:33)
[2023-03-04] MEDS: DIAZEPAM 5 MG TABLET 10 MG PO (08:33)
[2023-03-04] MEDS: LITHIUM CARBONATE 150 MG CAPSULE 600 MG PO (08:33)
[2023-03-04 11:19] VITALS: O2SAT 96
[2023-03-04] MEDS: BUDESONIDE 0.5 MG/2 ML AMPULE NEB IH (11:21)
[2023-03-04] MEDS: PNEUMOCOCCAL 23 VACCINE 25 MCG/0.5 ML SYRINGE IM (11:28)
--- NOTE | 2023-03-04 15:35 | P.DS_ITS ---
DS: Providers Provider Date of admission: 03/03/23 11:32 Primary care physician: Lamont Blair MD Attending physician on discharge: Shaikh Joanna Discharging clinician: Shaikh Joanna Anticipated date of discharge: 03/04/23 DS: Diagnosis Discharge Diagnosis (1) Acute exacerbation of extrinsic asthma: (2) Migraine: Qualifiers: Migraine type: unspecified Status migrainosus presence: without status migrainosus Intractability: not intractable Qualified Code(s): G43.909 - Migraine, unspecified, not intractable, without status migrainosus (3) Bipolar disorder: Qualifiers: Active/Remission status: in full remission Most recent bipolar episode type: unspecified type Qualified Code(s): F31.70 - Bipolar disorder, currently in remission, most recent episode unspecified (4) Seizure disorder: (5) Chronic pain disorder: DS: Summary Hospital Course Hospital Course: 27 yo female pt hx of severe persistent asthma presented with worsening SOB, wheezing and was admitted for asthma exacerbation. She was treated as outpatient when she presented to ED with URI symptoms including cough, congestion, rhinorrhea about a week ago.Patient was treated with systemic steroids, duonebs and showed improvement in her clinical status and felt better today. Stable for discharge on PO prednisone. Patient educated on worrisome signs and symptoms that should prompt her to seek urgent care. in ED Status at Discharge Functional status at discharge: independent ambulation Overall status at discharge: patient is back to baseline Time Spent with Patient Time attestation: Total time spent providing and/or coordinating discharge services: Exam Constitutional Vital Signs, click to edit/add: Last Vital Signs Temp 97.7 F 03/04/23 05:43 Pulse 102 H 03/04/23 05:43 Resp 20 03/04/23 05:43 BP 91/55 03/04/23 05:43 Pulse Ox 96 03/04/23 11:19 O2 Del Method Room Air 03/04/23 11:19 Common normals: no apparent distress General appearance: cooperative and comfortable Respiratory Common normals: normal respiratory effort and no use of accessory muscles Auscultation: clear to auscultation bilaterally Cardio Common normals: regular rate, regular rhythm, S1 normal heart sound and S2 normal heart sound GI Common normals: Normal to inspection, nondistended, normoactive bowel sounds present, soft to palpation and non-tender Neuro Common normals: oriented x3 and moves all extremities Psych Common normals: mental status grossly normal, thought process normal, cooperative, denies hallucinations and denies homicidal ideation DS: Data Data Completed and Pending Labs on day of discharge: Labs from last 24 hours 03/04/23 03/03/23 04:26 10:01 WBC 14.9 H RBC 4.32 Hgb 12.7 Hct 38.9 MCV 90.0 MCH 29.4 MCHC 32.6 RDW 12.9 Plt Count 263 MPV 10.2 Neut % (Auto) 93.5 H Lymph % (Auto) 4.6 L [place] % (Auto) 0.9 L Eos % (Auto) 0.1 L Baso % (Auto) 0.1 L Neut # (Auto) 14.0 H Lymph # (Auto) 0.7 L [place] # (Auto) 0.1 L Eos # (Auto) 0.0 Baso # (Auto) 0.0 Abs Immat Gran (auto) 0.12 H Imm/Tot Granulo (auto) 0.8 H Sodium 140 Potassium 4.1 Chloride 106 Carbon Dioxide 20.2 L Anion Gap 17.9 BUN 12.0 Creatinine 0.84 Est GFR ( Amer) >60 Est GFR (Non-Af Amer) >60 BUN/Creatinine Ratio 14.3 Glucose 195 H Calcium 9.0 Total Bilirubin 0.2 AST <5 L ALT 28 Alkaline Phosphatase 81 Total Protein 7.4 Albumin 3.5 Globulin 3.9 Albumin/Globulin Ratio 0.9 Adenovirus (PCR) Not detected C. pneumoniae DNA (PCR) Not detected Coronavirus Type OC43 Not detected Coronavirus Type HKU1 Not detected Coronavirus Type 229E Not detected Coronavirus Type NL63 Not detected Human Metapneumovir PCR Not detected M. pneumoniae (PCR) Not detected Parainfluenza PCR Not detected Parainfluenza 2 (PCR) Not detected Parainfluenza 3 (PCR) Not detected Parainfluenza 4 (PCR) Not detected RSV (RT-PCR) Not detected Entero/Rhino (PCR) Not detected SARS-CoV-2 (PCR) Not detected Bordetella pertussis (PCR) Not detected B parapertussis DNA PCR Not detected Influenza Type A (PCR) Not detected Influenza Type B (PCR) Not detected Discharge Plan Discharge Disposition: Home, Self-Care Discharge Medications: New prednisone 20 mg tablet 20 mg PO BID 5 Days Qty: 10 0RF prednisone 20 mg tablet 20 mg PO BID 5 Days Qty: 10 0RF budesonide-formoterol [Symbicort] 160-4.5 mcg/actuation HFA aerosol inhaler 2 inh inhalation Q12H Qty: 10.2 0RF Continued baclofen 10 mg tablet 10 mg PO TID diazepam 10 mg tablet 10 mg PO BID epinephrine 0.3 mg/0.3 mL auto-injector 0.3 mg IM Q10M PRN (Reason: anaphylaxis) Rx Instructions: for 2 doses ondansetron 4 mg tablet,disintegrating 4 mg PO Q6H PRN (Reason: nausea and vomiting) Qty: 20 0RF albuterol sulfate 2.5 mg /3 mL (0.083 %) solution for nebulization 2.5 mg inhalation Q4H PRN (Reason: shortness of breath or wheezing) trazodone 300 mg tablet 300 mg PO .qhs magnesium oxide 400 mg magnesium tablet 400 mg PO .qhs ketorolac 10 mg tablet 10 mg PO Q6H PRN (Reason: migraine headache) estradiol 0.5 mg tablet 0.5 mg PO QAM ibuprofen 800 mg tablet 800 mg PO Q8H PRN (Reason: pain) promethazine 25 mg tablet 12.5 mg PO Q6H PRN (Reason: nausea and vomiting) lithium carbonate 300 mg capsule 600 mg PO BID orphenadrine citrate 100 mg tablet extended release 100 mg PO BID PRN (Reason: migraine) lamotrigine 200 mg tablet 200 mg PO BID diphenhydramine HCl [Benadryl] 25 mg capsule 75 mg PO Q6H PRN (Reason: migraine headache) Activity: increase activity as tolerated Diet: advance to your usual diet Patient Instructions: Prednisone (By mouth), Asthma (DC) Forms: Portal Instructions Follow Up Appointments: Call your PCP Dr Blair ([phone]) on Monday to schedule follow up Discharge Date/Time: 03/04/23 11:40
--- NOTE | 2023-03-06 15:11 | CM.DCFOLLOWU ---
Person spoke with: Sandie How are you feeling? Much better How is your pain? No pain Did you understand your discharge instructions? Yes Do you have any questions about your discharge instructions? No Were you given any prescriptions at discharge? Yes Were you able to get your prescriptions filled? Yes Do you understand how to take your medications as ordered? Yes Do you have any questions about your follow up appointment and do you plan to keep your follow up appointment? No I need to call to schedule Is there anything else that you would like to discuss? No Questions/Comments/Concerns/Other:
== END 2023-03-04 11:40 | disposition home or self-care (01) ==
LOC: ER 11:37 → MS 11:55
PROVIDERS: Nurse Practitioner; Admitting Provider Family Medicine; Emergency Provider Emergency Medicine Emergency Medical Services; PCP Family Medicine; Visit Provider Family Medicine
DX: J45.901 Unspecified asthma with (acute) exacerbation (principal); G43.909 Migraine, unspecified, not intractable, without status migrainosus; F31.70 Bipolar disorder, currently in remission, most recent episode unspecified; G40.909 Epilepsy, unspecified, not intractable, without status epilepticus; G89.4 Chronic pain syndrome; K21.9 Gastro-esophageal reflux disease without esophagitis; F41.9 Anxiety disorder, unspecified; I34.1 Nonrheumatic mitral (valve) prolapse; Z20.822 Contact with and (suspected) exposure to COVID-19; Z86.16 Personal history of COVID-19; Z87.01 Personal history of pneumonia (recurrent); Z87.442 Personal history of urinary calculi; Z90.710 Acquired absence of both cervix and uterus; Z90.722 Acquired absence of ovaries, bilateral; Z98.890 Other specified postprocedural states; Z90.49 Acquired absence of other specified parts of digestive tract; Z79.899 Other long term (current) drug therapy; Z98.891 History of uterine scar from previous surgery; Z23 Encounter for immunization
CPT/HCPCS: 0202U; 36415; 71045; 80048; 80053; 85025; 87420; 87635; 87804; 87811; 90732; 94640; 96365; 96366; 96367; 96372; 96375; 96376; 99285; G0009; G0378; J1650; J2920; J2930; J3475

== ENCOUNTER 2023-03-15 10:59 | Emergency (ER) | payer OTHER, SELFPAY ==
[2023-03-15 11:19] VITALS: BP 129/84; PULSE 101; RESP 16; TEMP 36.4; O2SAT 99; BMI 46.3
--- NOTE | 2023-03-15 11:27 | CT_ITS ---
The [address] [address] Patient Name: MARGARET PLATT MRN: [id number] date: 1995 Sex: F Assigned Patient Location: ER Current Patient Location: ED.MAIN Accession/Order Number: [id number] Exam Date: 03/15/2023 11:38 Report Date: 03/15/2023 11:58 At the request of: [facility] CAPONE Procedure: CT head/brain wo con EXAMINATION: CT head/brain wo con, 03/15/2023 11:38 AM EST HISTORY: headache COMPARISON: 10/12/2022 TECHNIQUE: CT scan of the head was performed without IV contrast. CT dose reduction technique was used, including Automated Exposure Control. FINDINGS: BRAIN: No edema, hemorrhage, mass, acute infarction, or inappropriate atrophy. CSF SPACES: No hydrocephalus, subarachnoid hemorrhage, or mass. Appropriate for age. SKULL: No fracture, mass, or other significant visible lesion. SINUSES: No significant mucosal thickening or fluid on the limited views. ORBITS: No appreciable abnormality on the limited views. OTHER: Negative CT/CT head/brain wo con IMPRESSION: No acute intracranial abnormality Electronically authenticated by: NUZHAT BAUMANN Date: 03/15/2023 11:58
--- OUTSIDE RECORDS SUMMARY | 2023-03-15 11:55 | XMS_ITS | CCD ---
Author Name Unknown Address [address] [place] [address] Organization [facility] Care Team Providers Care Frame Polisher Name Role Phone Maria Del Rosario Hahn (Historical) Primary Care Provide r Unavailable Sandhya FINISHING LAB TECHNICIAN - PUBLIC RELATIONS SUPERVISOR, Angélica Pamela Primary Care Provider SANDHYA ANGÉLICA Santiago Primary Care Unavailable VIELKA CHING Attending Unavailable Sandhya FINISHING LAB TECHNICIAN - PUBLIC RELATIONS SUPERVISOR, Angélica Pamela Primary Care Provider LUCILA MOTA Attending Unavailable LYNDSEY STEWART Referring Unavailable SANDHYA ANGÉLICA Pamela Primary Care Unavailable LUCILA MOTA [...] Care Unavailable JEFFERSON .MARY Consulting Unavaildeshaun e NAASTASIA, DR GOMEZ Primary Care Unavailable PAY ., [...] MANJINDER Admitting Unavailable PATRICIA WALSH Consulting Unavailable [facility], DR GOMEZ Primary Care Unavailable HAY ., DR HARMAN Attending Unavailable HAY ., DR HARMAN Admitting Unavailable NEWSTEWART, NICHOLAS Consulting Unavailable UNLU, SINDY Consulting Unavailable LEONARDO ., DR GUTIERREZ Admitting Unavailable LEONARDO ., DR GUTIERREZ Consulting Unavailable [facility] Primary Care Unavailable LEONARDO ., DR GUTIERREZ Attending Unavailable KUNS, DR ANGÉLICA Santigao Primary Care Unavailable LEONARDO ., DR GUTIERREZ Admitting Unavailable LEONARDO ., DR GUTIERREZ Attending Unavailable LEONARDO ., DR GUTIERREZ Consulting Unavailable LEONARDO ., DR GUTIERREZ Admitting Unavailable LEONARDO ., DR GUTIERREZ Attending Unavailable NADERER, DR SPENSER Garcia Primary Care Unavailable [facility] Primary Care Unavailable HAY ., DR HARMAN [...] DR GUTIERREZ Procedure Practitioner Unavail able LONG, KRYSTNI Consulting Unavailable LUCIE, KLEBER Consulting Unavailable DORKOSKIE, [...] GREENLOGAN Attending Unavailable ОЛЬГА AGUILAR Attending Unavailable GREENLOGAN Referring Unavailable BIDDLECOM, SUZAN Attending Unavailable GREEN, LOGAN Attending Unavailable MARKER, DINORAH ESCUDERO Referring Unavailable MIMIDAVID Admitting Unavailable MIMIDAVID Attending Unavailable GREENLOGAN Attending Unavailable SAMPLES, JESSE Attending Unavailable MARIA DEL ROSARIO HAHN M Referring Unavailable LEONARDOZAY Attending Unavailable LEONARDOZAY Ellis Attending Unavailable LEONARDOZAY Attending Unavailable Ramsey Maloney Attending Unavailab le Ramsey Maloney Admitting Unavailab le NON STAFF Primary Care Unavailable Allergies Allergy Classification Reported Allergen(s) Allergy Type Date of Onset Reaction(s) Facility (20 sources) Azithromycin; Translations: [AZITHROMYCIN] Drug Allergy 1 Hives, Other: See Comments [facility] (2 sources) carBAMazepine Drug Allergy 1 Other (See Comments) [facility] (20 sources) Cephalexin; Translations: [CEPHALEXIN] Drug Allergy 1 Hives, Rash [facility] (20 sources) Metoclopramide; Translations: [METOCLOPRAMIDE] Drug Allergy 1 Hives, Intolerance [facility] (2 sources) Propranolol Drug Allergy 1 Hives, Other (See Comments) [facility] (20 sources) Adhesive Tape-Silicones; Translations: [ADHESIVE TAPE-SILICONES] Drug Allergy 2 Rash [facility] (20 sources) Dextromethorphan / Pyrilamine; Translations: [PYRILAMINE-DEXTROME THORPHAN] [facility] Work Phone: (20 sources) vortioxetine; Translations: [VORTIOXETINE] Drug Allergy 2 [facility] Work Phone: (17 sources) Dihydroergotamine; Translations: [DIHYDROERGOTAMINE] Drug Allergy 3 Intolerance [facility] (1 source) Azithromycin Drug Allergy [facility] (1 source) bee venom Drug allergy (disorder) [facility] (1 source) Cephalexin Drug Allergy [facility] (1 source) Desonide Drug Allergy [facility] (1 source) Iothalamate Drug Allergy [facility] (1 source) Propranolol Drug Allergy 1 [facility] (1 source) [place] DM Drug allergy (disorder) 2 [facility] (6 sources) levETIRAcetam; Translations: [LEVETIRACETAM] Drug Allergy 3 Itching [facility] Work Phone: Medications Current Medications Medication [...] Start: 10-21-2021 take 2 tablets by mo [facility] once daily lamoTRIgine (LAMICTAL) 25 MG tablet [...] on above: Take 1 tablet by sami as needed. 2.5 mg at onset of [...] a day as needed. polyethylene glycol 3350 71033 mg powder for oral solution (1 source) [...] (ZOMIG) 5 mg nasal spray Use 1 [place] in the nose as needed at onset of migraine headache. If symptoms persist or return, may repeat dose in other nostril after 2 hours. Maximum of 2 sprays per 24 hours 10 Each 2 06/24/2022 Active Start: 06-24-2022 take 1 spray(s) nasa l route every twenty-four hours as needed ZOLMitriptan (ZOMIG) 5 mg nasal spray Use 1 [place] in the nose as needed. SPRAY IN 1 NOSTRIL AT ONSET OF MIGRAINE HEADACHE. If symptoms persist or return, may repeat dose after 2 hours. Maximum: 5 mg/dose; 10 mg per 24 hours 10 Each 2 06/24/2022 Active Comment on above: Use 1 [place] in the n ose as needed. SPRAY IN 1 NOSTRIL AT ONSET OF MIGRAINE HEADACHE. If symptoms persist or return, may repeat dose after 2 hours. Maximum: 5 mg/dose; 10 mg per 24 hours Use 1 [place] in the n ose as needed at [...] [Major depressive disorder, single episode, unspecified] Onset: 09-01-2022 Chronic Mood disorders (1 source) Mood disorders; Translations: [DEPRESSION UNSPECIFIED] Onset: 06-22-2022 Nausea and vomiting (10 sources) Nausea; Translations: [Nausea with vomiting, unspecified] Onset: 08-14-2021 Episodic Other aftercare (1 source) Other fci (current) drug therapy; Translations: [OTH USP CURRENT DRUG THERAPY] Onset: 06-22-2022 Episodic Other [...] Reference Range Facility Veronica 12-13-2022 BASHIR Telephone ([facility]) ---- CONI NICHOLSON ([id number]) 1995 F Date Time Provider Department 12/13/22 LOGAN BARTH [facility] During your visit today, we recorded the following information about you: Jannette Mcleod RN 12/13/2022 2:10 PM Signed Received approval for Orphenadrine Citrate ER. See attached approval. Scan on 12/13/2022 1:58 PM by Provider, External, PA-C: MARY Approval for Orphenadrine Citrate Allergies As of [...] Date Reviewed: 12/12/2022 Reviewed by: Logan Barth APRN.PUBLIC RELATIONS SUPERVISOR - Fully Assessed Prescriptions as of 12/13/2022 [...] (ZOMIG) 5 mg nasal spray Use 1 [place] in the nose as needed at onset [...] Encounter Status:Closed by JANNETTE MCLEOD [facility]ICHOL[facility] ([id number]) 1995 F Date Time Provider Department 12/13/22 LOGAN BARTH During your visit today, we recorded the following information about you: Mendoza Dooley 12/13/2022 2:27 PM Signed Called patient to schedule for 3 days of Non DHE IV infusions. She started she was currently driving and would call back to schedule Logan Barth APRN.PUBLIC RELATIONS SUPERVISOR P Headache Infusion Scheduling Pool; P C21 [...] Date Reviewed: 12/12/2022 Reviewed by: Logan Barth APRN.PUBLIC RELATIONS SUPERVISOR - Fully Assessed Reason for Visit: Infusion [...] (ZOMIG) 5 mg nasal spray Use 1 [place] in the nose as needed at onset [...] Encounter Status:Closed by MENDOZA DOOLEY on 12/13/22 [facility] Veronica 11-10-2022 BASHIR Telephone (NIQ) ---- CONI NICHOLSON ([id number]) 1995 F Date Time Provider Department 11/10/22 [...] get infusions scheduled. Number to return call [phone] Okay to leave a message ? Yes Last office visit 10/12/22 with [facility] Next office visit Not scheduled. Thank you [...] Date Reviewed: 10/12/2022 Reviewed by: Suzan Driver APRN.PUBLIC RELATIONS SUPERVISOR - Fully Assessed Reason for Visit: Infusion [...] (ZOMIG) 5 mg nasal spray Use 1 [place] in the nose as needed at onset [...] Encounter Status:Closed by MENDOZA DOOLEY on 11/10/22 [facility] CNOVshira 10-12-2022 CNOV Office Visit (UTMNS2) ---- CONI NICHOLSON ([id number]) 1995 F Date Time Provider Department 10/12/22 10:15 AM SUZAN DRIVER [facility] During your visit today, we recorded the following information about you: Pulse Blood pressure Weight Height 91/minute 133/63 108.8 kg 1.549 m Suzan Driver APRN.FADY 10/12/2022 11:03 AM Addendum AFTER VISIT CARE [...] maximize the effectiveness of your pain relief. https://my.[facility].org/health/ treatments/8312-bot uqkicc-pnqyw-kulrjx ions Download the Chronic Migraine Anatomy Andrzej (by [employer]) to learn more about botox. -HYDRATION Hydration [...] see if you qualify for reimbursement. https://www.botoxsa Traxiangsprogram.com/ Return in 3 months for your next [...] machinery while taking this medication. Suzan Driver APRN.PUBLIC RELATIONS SUPERVISOR 10/12/2022 11:04 AM Signed New Onabotulinum Toxin [...] PHQ-9 06/24/2022 (more content not included)... Normal [facility] CNPNon 09-29-2022 CNPN Telephone ([facility]OP[facility]) ---- CONI NICHOLSON ([id number]) 1995 F Date Time Provider Department 09/29/22 ANGELY COTTON [facility] During your visit today, we recorded the following information about you: Angely Cotton RN 09/29/2022 11:55 AM Signed [facility] received prescription(s) for Zomig 5MG nasal spray . Benefits investigation was conducted, indicating that a prior authorization is required. PA was initiated and pending review through [employer]. All pertinent clinical information was submitted to insurance. CM Cohen: [id number] Ordering Provider: Logan Barth APRN.Angely Schaefer RN [facility] P: , F: Angely Cotton RN 10/07/2022 3:17 PM Signed Ambulatory Pharmacy Prior Authorization Note Provider Intervention Required?: No- Pharmacy completed on your behalf. Rx Plan: Medicaid MCO ([facility]) Drug: Zomig 5MG nasal spray Cover My Meds Cohen: [id number] Determination: Approved Prior Authorization/Case #: n/a Prior [...] questions relating to this submission, please contact [facility] at [phone] Allergies As of Date: 09/29/2022 Noted Allergy [...] Date Reviewed: 09/12/2022 Reviewed by: Logan Barth APRN.PUBLIC RELATIONS SUPERVISOR - Fully Assessed Reason for Visit: Insurance [...] (ZOMIG) 5 mg nasal spray Use 1 [place] in the nose as needed at onset [...] Encounter Status:Closed by ANGELY COTTON on 10/07/22 [facility] Telephone (NHMNS2) ---- CONI NICHOLSON ([id number]) 1995 F Date Time Provider Department 09/13/22 LOGAN BARTH [facility] During your visit today, we [...] Date Reviewed: 09/12/2022 Reviewed by: Logan Barth APRN.PUBLIC RELATIONS SUPERVISOR - Fully Assessed Reason for Visit: Referral [...] (ZOMIG) 5 mg nasal spray Use 1 [place] in the nose as needed. SPRAY IN [...] Encounter Status:Closed by ENEDINA TSAI on 09/13/22 [facility] CNCOon 09-08-2022 CNCO Letter Text [facility] CNPNon 07-05-2022 CNPN Telephone ([facility]OP[facility]) ---- CONI NICHOLSON ([id number]) 1995 F Date Time Provider Department 07/05/22 ANGELY COTTON [facility] During your visit today, we recorded the following information about you: Angely Cotton RN 07/05/2022 1:18 PM Signed [facility] received prescription(s) for Emgality 120MG/ML auto-injectors (migraine) . Benefits investigation was conducted, indicating that a prior authorization is required. PA was initiated and pending review through [employer]. All pertinent clinical information was submitted to insurance. CMM Cohen: [id number] Ordering Provider: GABBI Johnston Alisha, RN [facility] P: , F: Angely Cotton RN 07/11/2022 12:55 PM Signed Ambulatory Pharmacy Prior Authorization Note Provider Intervention Required?: No- Pharmacy completed on your behalf. Rx Plan: Medicaid MCO ([facility]) Drug: Emgality 120MG/ML auto-injectors (migraine) Cover My Meds Cohen: [id number] Determination: Denied PA Denied because: Step therapy [...] order to be profiled. Angely Cotton RN [facility] P: , F: For questions relating to this submission, please contact [facility] at [phone] Logan Barth APRN.CNP 07/20/2022 12:44 PM Signed [...] 09/08/2022 2:57 PM Signed Appeal letter sent. PRATIBHA Benson Dinorah 09/26/2022 3:34 PM Signed Recall letter placed. Uploaded to chart via [employer]. PLEASE SEND NEW RX TO PHARMACY FOR PROCESSING. Logan Barth APRN.CNP 09/27/2022 11:34 AM Signed The following approved medication requests have been transmitted electronically. Requested Prescriptions Signed Prescriptions Disp Refills galcanezumab-gnlm (EMGALITY PEN) 120 mg/mL pen 1 Each 11 Sig: Inject 1 mL subcutaneously once every month. Do not shake. Authorizing Provider: LOGAN BARTH APRN.CNP Green, Koli, APRN.[facility] 09/27/2022 11:35 AM Signed Addended by: LOGAN [...] Date Reviewed: 06/24/2022 Reviewed by: Logan Barth APRN.PUBLIC RELATIONS SUPERVISOR - Fully Assessed Reason for Visit: Insurance Authorization [9943] Cmt: Emgality 120MG/ML auto-injectors (migraine) Order(s):Order #: [id number] Order #: [id number] Prescriptions as of 09/27/2022 - galcanezumab-gnlm (EMGALITY [...] - prometh (more content not included)... Normal [facility] CNPNon 07-04-2022 CNPN Telephone ([facility]) ---- CONI NICHOLSON ([id number]) 1995 F Date Time Provider Department 07/04/22 LOGAN BARTH [facility] During your visit today, we recorded the following information about you: Shirlene Leon 07/04/2022 4:01 PM Signed Ambulatory Pharmacy Prior Authorization Note Provider Intervention Required?: Yes- [place] Medicaid (PCN: [id number]) requires prior authorization to be submitted by the provider. Prior authorization forms required for submission can be found at: Https://spbm.medica id.[place].gov/SPConte nt/DocumentLibrary/ Forms Drug: EMGALITY PEN 120 mg/mL pen Additional Information: n/a URGENT! Please select Urgent when requesting prior authorization using either [employer] or [employer] sites. This should result in a 24 hour turnaround from [facility] [place]. Please send electronic fax using [employer] or [employer] or manually fax completed paperwork to [phone] with ATTN: PA Help Desk. Any questions, please contact us at [facility] [phone] Enedina Tsai RN 07/27/2022 8:32 AM Addendum Submitted PA via [employer]. Margaret Nicholson (Cohen: [id number]) Emgality 120MG/ML auto-injectors (migraine) Form: [place] Managed Medicaid [facility] Prior Authorization Form Your PA has been faxed to the plan as a paper copy. Please contact the [facility] [place] directly if you haven't received a determination [...] Date Reviewed: 06/24/2022 Reviewed by: Logan Barth APRN.PUBLIC RELATIONS SUPERVISOR - Fully Assessed Prescriptions as of 02/28/2023 [...] (ZOMIG) 5 mg nasal spray Use 1 [place] in the nose as needed at onset [...] Encounter Status:Closed by SHIRLENE LEON on 02/28/23 [facility] Veronica 06-27-2022 BASHIR Telephone (NIQ) ---- MARGARET NICHOLSON ([id number]) 1995 F Date Time Provider Department 06/27/22 [...] Date Reviewed: 06/24/2022 Reviewed by: Logan Barth APRN.PUBLIC RELATIONS SUPERVISOR - Fully Assessed Reason for Visit: Appointment [...] (ZOMIG) 5 mg nasal spray Use 1 [place] in the nose as needed. SPRAY IN [...] Status:Closed by MENDOZA DOOLEY on 06/27/22 Normal [facility] BLOOD GASES BTYon 06-20-2022 02 MODE ROOM AIR Normal [facility] Comment on above: Performed By: #### B MP #### [facility] [address] [place] [address] Dr. Ibis BETH TEST Positive [facility] Comment on above: Performed By: #### B MP #### [facility] [address] [address] [address] Ibis Jimenez Base excess Calc (Bld) [Moles/Vol] -1.6000 mmol/L Normal -2.0-2.0 [facility] Comment on above: Performed By: #### B MP #### [facility] [address] [address] [address] Ibis Jimenez BIPAP PRESSURE [facility] Comment on above: Performed By: #### B MP #### [facility] [address] [address] [address] Ibis Jimenez CPAP [facility] Comment on above: Performed By: #### B MP #### [facility] [address] [address] [address] Ibis Jimenez FIO2 [facility] Comment on above: Performed By: #### B MP #### [facility] [address] [address] [address] Ibis Jimenez HCO3 (Bld) [Moles/Vol] 23.8 mmol/L Normal 22.0-26.0 [facility] Comment on above: Performed By: #### B MP #### [facility] [address] [address] [address] Ibis Jimenez LPM [facility] Comment on above: Performed By: #### B MP #### [facility] [address] [address] [address] Ibis Jimenez MINUTE VOLUME Normal [facility] Comment on above: Performed By: #### B MP #### [facility] [address] [address] [address] Ibis Jimenez Oxygen (Bld) [Partial pressure] 75.5 mm[Hg] Critically low 80.0-100.0 [facility] Comment on above: Performed By: #### B MP #### [facility] [address] [address] [address] Ibis Jimenez Oxygen saturation in Blood 95.8 % Normal 95.0-100.0 [facility] Comment on above: Performed By: #### B MP #### [facility] [address] [address] [address] Ibis Jimenez PCO2 41.8 mmHg Normal 35.0-45.0 [facility] Comment on above: Performed By: #### B MP #### [facility] [address] [place] [address] Dr. Ibis Jimenez PEEP [facility] Comment on above: Performed By: #### B MP #### [facility] [address] [place] [address] Dr. Ibis Jimenez pH (Bld) 7.363 [pH] Normal 7.350-7.450 [facility] Comment on above: Performed By: #### B MP #### [facility] [address] [place] [address] Dr. Ibis Jimenez [facility] Comment on above: Performed By: #### B MP #### [facility] [address] [place] [address] Dr. Ibis Jimenez [facility] Comment on above: Performed By: #### B MP #### [facility] [address] [place] [address] Dr. Ibis Jimenez PUNCTURE SITE LR [facility] Comment on above: Performed By: #### B MP #### [facility] [address] [place] [address] Dr. Ibis Jimenez RATE [facility] Comment on above: Performed By: #### B MP #### [facility] [address] [place] [address] Dr. Ibis Jimenez VENT MODE [facility] Comment on above: Performed By: #### B MP #### [facility] [address] [place] [address] Dr. Ibis Jimenez [facility] Comment on above: Performed By: #### B MP #### [facility] [address] [place] [address] Dr. Ibis Jimenez CBC AUTO DIFFon 06-20-2022 BASO # 0.0 103/ul Normal 0.0-0.1 [facility] Comment on above: Performed By: #### A CET, SALYC #### [facility] [address] [place] [address] Dr. Ibis Jimenez Basophils/100 WBC (Bld) 0.5 % Normal 0.2-2.0 [facility] Comment on above: Performed By: #### A CET, SALYC #### [facility] [address] [place] [address] Dr. Ibis Jimenez EO # 0.3 103/ul Normal 0.0-0.7 [facility] Comment on above: Performed By: #### A CET, SALYC #### [facility] [address] [place] [address] Dr. Ibis Jimenez Eosinophils/100 WBC (Bld) 4.2 % Normal 0.9-7.0 [facility] Comment on above: Performed By: #### A CET, SALYC #### [facility] [address] [place] [address] Dr. Ibis Jimenez Erythrocyte distribution width (RBC) [Ratio] 13.2 % Normal 11.0-15.0 [facility] Comment on above: Performed By: #### A CET, SALYC #### [facility] [address] [place] [address] Dr. Ibis Jimenez Hematocrit (Bld) [Volume fraction] 36.5 % Normal 36.0-48.0 [facility] Comment on above: Performed By: #### A CET, SALYC #### [facility] [address] [place] [address] Dr. Ibis Jimenez Hemoglobin (Bld) [Mass/Vol] 11.7 g/dL Critically low 12.0-16.0 [facility] Comment on above: Performed By: #### A CET, SALYC #### [facility] [address] [place] [address] Dr. Ibis Jimenez IG # 0.05 10e3/ul Critically high 0.00-0.03 [facility] Comment on above: Performed By: #### A CET, SALYC #### [facility] [address] [place] [address] Dr. Ibis Jimenez IG % 0.8 % Critically high 0.0-0.5 [facility] Comment on above: Performed By: #### A CET, SALYC #### [facility] [address] [place] [address] Dr. Ibis Jimenez LYMPH # 1.7 103/ul Normal 1.2-3.8 [facility] Comment on above: Performed By: #### A CET, SALYC #### [facility] [address] [place] [address] Dr. Ibis Jimenez Lymphocytes/100 WBC (Bld) 26.9 % Normal 20.5-60.0 [facility] Comment on above: Performed By: #### A CET, SALYC #### [facility] [address] [place] [address] Dr. Ibis Jimenez MANUAL DIFF REQ NO Normal [facility] Comment on above: Performed By: #### A CET, SALYC #### [facility] [address] [place] [address] Dr. Ibis Jimenez MCH (RBC) [Entitic mass] 28.7 pg Normal 26.7-34.0 [facility] Comment on above: Performed By: #### A CET, SALYC #### [facility] [address] [place] [address] Dr. Ibis Jimenez MCHC (RBC) [Mass/Vol] 32.1 g/dL Normal 29.9-35.2 [facility] Comment on above: Performed By: #### A CET, SALYC #### [facility] [address] [place] [address] Dr. Ibis Jimenez MCV (RBC) [Entitic vol] 89.7 fL Normal 81.0-99.0 [facility] Comment on above: Performed By: #### A CET, SALYC #### [facility] [address] [place] [address] Dr. Ibis Jimenez MONO # 0.6 103/ul Normal 0.3-0.8 [facility] Comment on above: Performed By: #### A CET, SALYC #### [facility] [address] [address] [address] Ibis Jimenez Monocytes/100 WBC (Bld) 8.9 % Normal 1.7-12.0 [facility] Comment on above: Performed By: #### A CET, SALYC #### [facility] [address] [address] [address] Ibis Jimenez NEUT # 3.8 103/ul Normal 1.4-6.5 [facility] Comment on above: Performed By: #### A CET, SALYC #### [facility] [address] [place] [address] Dr. Ibis Jimenez Neutrophils/100 WBC (Bld) 58.7 % Normal 43.0-75.0 [facility] Comment on above: Performed By: #### A CET, SALYC #### [facility] [address] [place] [address] Dr. Ibis Jimenez Platelet mean volume (Bld) [Entitic vol] 9.3 fL Critically low 9.5-13.5 [facility] Comment on above: Performed By: #### A CET, SALYC #### [facility] [address] [place] [address] Dr. Ibis Jimenez PLT 188 103/ul Normal 150-450 [facility] Comment on above: Performed By: #### A CET, SALYC #### [facility] [address] [place] [address] Dr. Ibis Jimenez RBC 4.07 106/ul Critically low 4.20-5.40 [facility] Comment on above: Performed By: #### A CET, SALYC #### [facility] [address] [place] [address] Dr. Ibis Jimenez WBC 6.4 103/ul Normal 4.0-11.0 [facility] Comment on above: Performed By: #### A CET, SALYC #### [facility] [address] [place] [address] Dr. Ibis Jimenez DRUG SCREEN RAPID (URINE)on 06-20-2022 AMP Negative Normal NEGATIVE [facility] Comment on above: Performed By: #### B MP #### [facility] [address] [place] [address] Dr. Ibis Jimenez BAR Positive Abnormal NEGATIVE [facility] Comment on above: Performed By: #### B MP #### [facility] [address] [place] [address] Dr. Ibis Jimenez BUP Negative Normal NEGATIVE [facility] Comment on above: Performed By: #### B MP #### [facility] [address] [place] [address] Dr. Ibis Jimenez BZO Positive Abnormal NEGATIVE [facility] Comment on above: Performed By: #### B MP #### [facility] [address] [place] [address] Dr. Ibis Jimenez SEMAJ Negative Normal NEGATIVE [facility] Comment on above: Performed By: #### B MP #### [facility] [address] [place] [address] Dr. Ibis Jimenez CUT-OFFS SEE BELOW Normal [facility] Comment on above: Result Comment: AMP (Amphetamine): 500ng/mL, BAR (Barbituates): 200 ng/mL, BZO (Benzodiazepines): 150 ng/mL, BUP (Buprenorphine): 10 ng/mL, SEMAJ (Cocaine): 150 ng/mL, mAMP (Methamphetamine): 500 ng/mL, MTD (Methadone): 200 ng/mL, OPI (Opiates): 100 ng/mL, OXY (Oxycodone): 100 ng/mL, PCP (Phencyclidine): 25 ng/mL, PPX (Propoxyphene): 300 ng/mL, THC (Cannabinoids): 50 ng/mL, TCA (Trycyclic Antidepressants): 300 ng/mL Performed By: #### B MP #### [facility] [address] [place] [address] Dr. Ibis Jimenez DRUG CUT HEADER DRUG CLASS TEST SYSTEM CUT-OFF CONCENTRATIONS ARE FOLLOWS: Normal [facility] Comment on above: Performed By: #### B MP #### [facility] [address] [place] [address] Dr. Ibis Jimenez mAMP Negative Normal NEGATIVE [facility] Comment on above: Performed By: #### B MP #### [facility] [address] [place] [address] Dr. Ibis Jimenez MTD Negative Normal NEGATIVE [facility] Comment on above: Performed By: #### B MP #### [facility] [address] [place] [address] Dr. Ibis Jimenez OPI Negative Normal NEGATIVE [facility] Comment on above: Performed By: #### B MP #### [facility] [address] [place] [address] Dr. Ibis Jimenez OXY Negative Normal NEGATIVE [facility] Comment on above: Performed By: #### B MP #### [facility] [address] [place] [address] Dr. Ibis Jimenez PCP Negative Normal NEGATIVE [facility] Comment on above: Performed By: #### B MP #### [facility] [address] [place] [address] Dr. Ibis Jimenez PPX Negative Normal NEGATIVE [facility] Comment on above: Performed By: #### B MP #### [facility] [address] [place] [address] Dr. Ibis Jimenez TCA Positive Abnormal NEGATIVE [facility] Comment on above: Performed By: #### B MP #### [facility] [address] [place] [address] Dr. Ibis Jimenez THC Positive Abnormal NEGATIVE [facility] Comment on above: Performed By: #### B MP #### [facility] [address] [place] [address] Dr. Ibis Jimenez ER URINE PROFILEon 3 Bilirubin Ql (U) Negative Normal NEGATIVE [facility] Comment on above: Performed By: #### A CET, SALYC #### [facility] [address] [place] [address] Dr. Ibis Jimenez Clarity (U) CLEAR Normal CLEAR [facility] Comment on above: Performed By: #### A CET, SALYC #### [facility] [address] [place] [address] Dr. Ibis Jimenez Color (U) YELLOW Normal YELLOW [facility] Comment on above: Performed By: #### A CET, SALYC #### [facility] [address] [address] [address] Ibis Garcia micrscopic examination will be performed if indicated. Normal [facility] Comment on above: Performed By: #### A CET, SALYC #### [facility] [address] [place] [address] Dr. Ibis Jimenez Glucose Ql (U) Negative Normal NEGATIVE [facility] Comment on above: Performed By: #### A CET, SALYC #### [facility] [address] [place] [address] Dr. Ibis Jimenez Hemoglobin Ql (U) Negative Normal NEGATIVE [facility] Comment on above: Performed By: #### A CET, SALYC #### [facility] [address] [place] [address] Dr. Ibis Jimenez Ketones Ql (U) Negative Normal NEGATIVE [facility] Comment on above: Performed By: #### A CET, SALYC #### [facility] [address] [place] [address] Dr. Ibis Jimenez LEUKOCYTES Negative Normal NEGATIVE [facility] Comment on above: Performed By: #### A CET, SALYC #### [facility] [address] [place] [address] Dr. Ibis Jimenez Nitrite Ql (U) Negative Normal NEGATIVE [facility] Comment on above: Performed By: #### A CET, SALYC #### [facility] [address] [place] [address] Dr. Ibis Jimenez pH (U) 5.0 [pH] Normal 5-9 [facility] Comment on above: Performed By: #### A CET, SALYC #### [facility] [address] [place] [address] Dr. Ibis Jimenez SPEC GRAVITY >=1.030 Abnormal 1.005-<=1.02 5 [facility] Comment on above: Performed By: #### A CET, SALYC #### [facility] [address] [place] [address] Dr. Ibis Jimenez UA PROTEIN Negative Normal NEGATIVE/ TRACE [facility] Comment on above: Performed By: #### A CET, SALYC #### [facility] [address] [address] [address] Ibis Jimenez UR MICRO IND NOT INDICATED Normal [facility] Comment on above: Performed By: #### A CET, SALYC #### [facility] [address] [place] [address] Dr. Ibis Jimenez Urobilinogen Qn (U) 0.2 {Dinorah'U}/dL Normal 0.2 - 1. 0 [facility] Comment on above: Performed By: #### A CET, SALYC #### [facility] [address] [place] [address] Dr. Ibis Jimenez PROF CHEM 8 (BAS METB)on Anion gap [Moles/Vol] 13.1 mmol/L Normal [facility] Comment on above: Performed By: #### M DAVID #### [facility] [address] [place] [address] Dr. Ibis Jimenez Calcium [Mass/Vol] 8.3 mg/dL Critically low 8.5-10.1 [facility] Comment on above: Performed By: #### M DAVID #### [facility] [address] [place] [address] Dr. Ibis Jimenez Chloride [Moles/Vol] 109 mmol/L Critically high 98-107 [facility] Comment on above: Performed By: #### M DAVID #### [facility] [address] [place] [address] Dr. Ibis Jimenez CO2 [Moles/Vol] 25.7 mmol/L Normal 21.0-32.0 [facility] Comment on above: Performed By: #### M DAVID #### [facility] [address] [place] [address] Dr. Ibis Jimenez Creatinine [Mass/Vol] 0.82 mg/dL Normal 0.55-1.02 [facility] Comment on above: Performed By: #### M DAVID #### [facility] [address] [place] [address] Dr. Ibis Jimenez EGFR-AF EAST [place]ESE >60 Normal >=60 [facility] Comment on above: Performed By: #### M DAVID #### [facility] [address] [address] [address] Ibis Jimenez EGFR-NON AF EAST [place]ESE >60 Normal >=60 [facility] Comment on above: Performed By: #### M DAVID #### [facility] [address] [address] [address] Ibis Jimenez Glucose [Mass/Vol] 95 mg/dL Normal 74-106 [facility] Comment on above: Performed By: #### M DAVID #### [facility] [address] [address] [address] Ibis Jimenez Potassium [Moles/Vol] 3.8 mmol/L Normal 3.5-5.1 [facility] Comment on above: Performed By: #### M DAVID #### [facility] [address] [address] [address] Ibis Jimenez Sodium [Moles/Vol] 144 mmol/L Normal 136-145 [facility] Comment on above: Performed By: #### M DAVID #### [facility] [address] [address] [address] Ibis Jimenez Urea nitrogen [Mass/Vol] 16.0 mg/dL Normal 7.0-18.0 [facility] Comment on above: Performed By: #### M DAVID #### [facility] [address] [address] [address] Ibis Jimenez Urea nitrogen/Creatinine [Mass ratio] 19.5 mg/mg Normal [facility] Comment on above: Performed By: #### M DAVID #### [facility] [address] [address] [address] Ibis Jimenez ACETAMINOPHENon 06-19-2022 Acetaminophen [Mass/Vol] ug/mL Critically low 10.0-30.0 [facility] Comment on above: Performed By: #### A CET, SALYC #### [facility] [address] [address] [address] Ibis Jimenez DRUG SCREEN RAPID (URINE)on 06-19-2022 AMP Negative Normal NEGATIVE [facility] Comment on above: Performed By: #### M DAVID #### [facility] [address] [address] [address] Ibis Jimenez BAR Positive Abnormal NEGATIVE [facility] Comment on above: Performed By: #### M DAVID #### [facility] [address] [address] [address] Ibis Jimenez BUP Negative Normal NEGATIVE [facility] Comment on above: Performed By: #### M DAVID #### [facility] [address] [place] [address] Dr. Ibis Jimenez BZO Positive Abnormal NEGATIVE [facility] Comment on above: Performed By: #### M DAVID #### [facility] [address] [place] [address] Dr. Ibis Jimenez SEMAJ Negative Normal NEGATIVE [facility] Comment on above: Performed By: #### M DAVID #### [facility] [address] [place] [address] Dr. Ibis Jimenez CUT-OFFS SEE BELOW Normal [facility] Comment on above: Result Comment: AMP (Amphetamine): 500ng/mL, BAR (Barbituates): 200 ng/mL, BZO (Benzodiazepines): 150 ng/mL, BUP (Buprenorphine): 10 ng/mL, SEMAJ (Cocaine): 150 ng/mL, mAMP (Methamphetamine): 500 ng/mL, MTD (Methadone): 200 ng/mL, OPI (Opiates): 100 ng/mL, OXY (Oxycodone): 100 ng/mL, PCP (Phencyclidine): 25 ng/mL, PPX (Propoxyphene): 300 ng/mL, THC (Cannabinoids): 50 ng/mL, TCA (Trycyclic Antidepressants): 300 ng/mL Performed By: #### M DAVID #### [facility] [address] [place] [address] Dr. Ibis Jimenez DRUG CUT HEADER DRUG CLASS TEST SYSTEM CUT-OFF CONCENTRATIONS ARE FOLLOWS: Normal [facility] Comment on above: Performed By: #### M DAVID #### [facility] [address] [place] [address] Dr. Ibis Jimenez mAMP Negative Normal NEGATIVE [facility] Comment on above: Performed By: #### M DAVID #### [facility] [address] [address] [address] Ibis Jimenez MTD Negative Normal NEGATIVE [facility] Comment on above: Performed By: #### M DAVID #### [facility] [address] [address] [address] Ibis Jimenez OPI Positive Abnormal NEGATIVE [facility] Comment on above: Performed By: #### M DAVID #### [facility] [address] [place] [address] Dr. Ibis Jimenez OXY Negative Normal NEGATIVE [facility] Comment on above: Performed By: #### M DAVID #### [facility] [address] [place] [address] Dr. Ibis Jimenez PCP Negative Normal NEGATIVE [facility] Comment on above: Performed By: #### M DAVID #### [facility] [address] [place] [address] Dr. Ibis Jimenez PPX Negative Normal NEGATIVE [facility] Comment on above: Performed By: #### M DAVID #### [facility] [address] [address] [address] Ibis Jimenez TCA Negative Normal NEGATIVE [facility] Comment on above: Performed By: #### M DAVID #### [facility] [address] [place] [address] Dr. Ibis Jimenez THC Positive Abnormal NEGATIVE [facility] Comment on above: Performed By: #### M DAVID #### [facility] [address] [place] [address] Dr. Ibis Jimenez ER URINE PROFILEon 3 Bilirubin Ql (U) Negative Normal NEGATIVE [facility] Comment on above: Performed By: #### M DAVID #### [facility] [address] [place] [address] Dr. Ibis Jimenez Clarity (U) CLEAR Normal CLEAR [facility] Comment on above: Performed By: #### M DAVID #### [facility] [address] [place] [address] Dr. Ibis Jimenez Color (U) YELLOW Normal YELLOW [facility] Comment on above: Performed By: #### M DAVID #### [facility] [address] [address] [address] Ibis RODRIGUEZ A micrscopic examination will be performed if indicated. Normal [facility] Comment on above: Performed By: #### M DAVID #### [facility] [address] [place] [address] Dr. Ibis Jimenez Glucose Ql (U) Negative Normal NEGATIVE [facility] Comment on above: Performed By: #### M DAVID #### [facility] [address] [place] [address] Dr. Ibis Jimenez Hemoglobin Ql (U) TRACE-INTACT Abnormal NEGATIVE [facility] Comment on above: Performed By: #### M DAVID #### [facility] [address] [place] [address] Dr. Ibis Jimenez Ketones Ql (U) Negative Normal NEGATIVE [facility] Comment on above: Performed By: #### M DAVID #### [facility] [address] [place] [address] Dr. Ibis Jimenez LEUKOCYTES Negative Normal NEGATIVE [facility] Comment on above: Performed By: #### M DAVID #### [facility] [address] [place] [address] Dr. Ibis Jimenez Nitrite Ql (U) Negative Normal NEGATIVE [facility] Comment on above: Performed By: #### M DAVID #### [facility] [address] [place] [address] Dr. Ibis Jimenez pH (U) 6.0 [pH] Normal 5-9 [facility] Comment on above: Performed By: #### M DAIVD #### [facility] [address] [place] [address] Dr. Ibis Jimenez Protein (U) [Mass/Vol] 30 mg/dL Abnormal NEGAT ADALGISA/ TRACE [facility] Comment on above: Performed By: #### M DAVID #### [facility] [address] [place] [address] Dr. Ibis Jimenez SPEC GRAVITY 1.025 Normal 1.005-<=1.02 5 [facility] Comment on above: Performed By: #### M DAVID #### [facility] [address] [place] [address] Dr. Ibis Jimenez UR MICRO IND INDICATED Normal [facility] Comment on above: Performed By: #### M DAVID #### [facility] [address] [place] [address] Dr. Ibis Jimenez Urobilinogen Qn (U) 0.2 {Dinorah'U}/dL Normal 0.2 - 1. 0 [facility] Comment on above: Performed By: #### M DAVID #### [facility] [address] [place] [address] Dr. Ibis Jimenez ETHANOL (BLD ALC)on 06-20-19 ALC NOTE NOTE: 80 mg/dl is the legal limit for a blood alcohol level Normal [facility] Comment on above: Performed By: #### A MM #### [facility] [address] [place] [address] Dr. Ibis Jimenez Ethanol [Mass/Vol] mg/dL Normal [facility] Comment on above: Performed By: #### A MM #### [facility] [address] [place] [address] Dr. Ibis Jimenez POINT OF CARE GLUCOSEon 05-23 Glucose [Mass/Vol] 88 mg/dL Normal 74-106 [facility] Comment on above: Performed By: #### C VDTBH #### [facility] [address] [place] [address] Dr. Ibis Jimenez URon 06-19-2022 , QUAL Negative Normal NEGATIVE [facility] Comment on above: Performed By: #### M DAVID #### [facility] [address] [place] [address] Dr. Ibis Jimenez PROF CHEM 8 (BAS METB)on Anion gap [Moles/Vol] 12.6 mmol/L Normal [facility] Comment on above: Performed By: #### A MM #### [facility] [address] [place] [address] Dr. Ibis Jimenez Calcium [Mass/Vol] 8.4 mg/dL Critically low 8.5-10.1 [facility] Comment on above: Performed By: #### A MM #### [facility] [address] [place] [address] Dr. Ibis Jimenez Chloride [Moles/Vol] 107 mmol/L Normal 98-107 [facility] Comment on above: Performed By: #### A MM #### [facility] [address] [address] [address] Ibis Jimenez CO2 [Moles/Vol] 22.5 mmol/L Normal 21.0-32.0 [facility] Comment on above: Performed By: #### A MM #### [facility] [address] [place] [address] Dr. Ibis Jimenez Creatinine [Mass/Vol] 0.82 mg/dL Normal 0.55-1.02 [facility] Comment on above: Performed By: #### A MM #### [facility] [address] [place] [address] Dr. Ibis Jimenez EGFR-AF EAST [place] >60 Normal >=60 [facility] Comment on above: Performed By: #### A MM #### [facility] [address] [place] [address] Dr. Ibis Jimenez EGFR-NON AF [place] >60 Normal >=60 [facility] Comment on above: Performed By: #### A MM #### [facility] [address] [place] [address] Dr. Ibis Jimenez Glucose [Mass/Vol] 87 mg/dL Normal 74-106 [facility] Comment on above: Performed By: #### A MM #### [facility] [address] [place] [address] Dr. Ibis Jimenez Potassium [Moles/Vol] 4.1 mmol/L Normal 3.5-5.1 [facility] Comment on above: Performed By: #### A MM #### [facility] [address] [place] [address] Dr. Ibis Jimenez Sodium [Moles/Vol] 138 mmol/L Normal 136-145 [facility] Comment on above: Performed By: #### A MM #### [facility] [address] [address] [address] Ibis Jimenez Urea nitrogen [Mass/Vol] 22.0 mg/dL Critically high 7.0-18.0 [facility] Comment on above: Performed By: #### A MM #### [facility] [address] [address] [address] Ibis Jimenez Urea nitrogen/Creatinine [Mass ratio] 26.8 mg/mg Normal [facility] Comment on above: Performed By: #### A MM #### [facility] [address] [place] [address] Dr. Ibis Jimenez SALICYLATEon 06-19-2022 SALICYLATE <2.8 Normal <=19.9 [facility] Comment on above: Performed By: #### A CET, SALYC #### [facility] [address] [place] [address] Dr. Ibis Jimenez URINE MICROSCOPIC ONLYon BACTERIA NONE SEEN Normal NONE SEEN [facility] Comment on above: Performed By: #### M DAVID #### [facility] [address] [place] [address] Dr. Ibis Jimenez Bacteria identified Cx Nom (U) NOT INDICATED Normal [facility] Comment on above: Performed By: #### M DAVID #### [facility] [address] [place] [address] Dr. Ibis Jimenez CAST SEEN Abnormal NONE SEEN [facility] Comment on above: Performed By: #### M DAVID #### [facility] [address] [place] [address] Dr. Ibis Jimenez Crystals LM Nom (Urine sed) NONE SEEN Normal NONE SEEN [facility] Comment on above: Performed By: #### M DAVID #### [facility] [address] [place] [address] Dr. Ibis Jimenez Epithelial cells LM Ql (Urine sed) MODERATE Abnormal NONE SEEN /RARE [facility] Comment on above: Performed By: #### M DAVID #### [facility] [address] [place] [address] Dr. Ibis Jimenez HYALINE CAST FEW Normal [facility] Comment on above: Performed By: #### M DAVID #### [facility] [address] [address] [address] Ibis Jimenez MUCOUS NONE SEEN Normal NONE SEEN [facility] Comment on above: Performed By: #### M DAVID #### [facility] [address] [address] [address] Ibis Jimenez RBC 2-5 Abnormal 0-2 [facility] Comment on above: Performed By: #### M DAVID #### [facility] [address] [address] [address] Ibis Jimenez WBC NONE SEEN Normal NONE SEEN [facility] Comment on above: Performed By: #### M DAVID #### [facility] [address] [place] [address] Dr. Ibis Jimenez CBC AUTO DIFFon 06-11-2022 BASO # 0.0 103/ul Normal 0.0-0.1 [facility] Comment on above: Performed By: #### C VDTBH #### [facility] [address] [address] [address] Ibis Jimenez Basophils/100 WBC (Bld) 0.3 % Normal 0.2-2.0 [facility] Comment on above: Performed By: #### C VDTBH #### [facility] [address] [address] [address] Ibis Jimenez EO # 0.0 103/ul Normal 0.0-0.7 [facility] Comment on above: Performed By: #### C VDTBH #### [facility] [address] [address] [address] Ibis Jimenez Eosinophils/100 WBC (Bld) 0.1 % Critically low 0.9-7.0 [facility] Comment on above: Performed By: #### C VDTBH #### [facility] [address] [place] [address] Dr. Ibis Jimenez Erythrocyte distribution width (RBC) [Ratio] 13.2 % Normal 11.0-15.0 [facility] Comment on above: Performed By: #### C VDTBH #### [facility] [address] [place] [address] Dr. Ibis Jimenez Hematocrit (Bld) [Volume fraction] 38.5 % Normal 36.0-48.0 [facility] Comment on above: Performed By: #### C VDTBH #### [facility] [address] [place] [address] Dr. Ibis Jimenez Hemoglobin (Bld) [Mass/Vol] 12.4 g/dL Normal 12.0-16.0 [facility] Comment on above: Performed By: #### C VDTBH #### [facility] [address] [place] [address] Dr. Ibis Jimenez IG # 0.20 10e3/ul Critically high 0.00-0.03 [facility] Comment on above: Performed By: #### C VDTBH #### [facility] [address] [place] [address] Dr. Ibis Jimenez IG % 1.8 % Critically high 0.0-0.5 [facility] Comment on above: Performed By: #### C VDTBH #### [facility] [address] [place] [address] Dr. Ibis Jimenez LYMPH # 0.5 103/ul Critically low 1.2-3.8 [facility] Comment on above: Performed By: #### C VDTBH #### [facility] [address] [place] [address] Dr. Ibis Jimenez Lymphocytes/100 WBC (Bld) 4.6 % Critically low 20.5-60.0 [facility] Comment on above: Performed By: #### C VDTBH #### [facility] [address] [place] [address] Dr. Ibis Jimenez MANUAL DIFF REQ NO Normal [facility] Comment on above: Performed By: #### C VDTBH #### [facility] [address] [place] [address] Dr. Ibis Jimenez MCH (RBC) [Entitic mass] 28.2 pg Normal 26.7-34.0 [facility] Comment on above: Performed By: #### C VDTBH #### [facility] [address] [place] [address] Dr. Ibis Jimenez MCHC (RBC) [Mass/Vol] 32.2 g/dL Normal 29.9-35.2 [facility] Comment on above: Performed By: #### C VDTBH #### [facility] [address] [place] [address] Dr. Ibis Jimenez MCV (RBC) [Entitic vol] 87.5 fL Normal 81.0-99.0 [facility] Comment on above: Performed By: #### C VDTBH #### [facility] [address] [place] [address] Dr. Ibis Jimenez MONO # 0.1 103/ul Critically low 0.3-0.8 [facility] Comment on above: Performed By: #### C VDTBH #### [facility] [address] [place] [address] Dr. Ibis Jimenez Monocytes/100 WBC (Bld) 1.3 % Critically low 1.7-12.0 [facility] Comment on above: Performed By: #### C VDTBH #### [facility] [address] [place] [address] Dr. Ibis Jimenez NEUT # 10.1 103/ul Critically high 1.4-6.5 [facility] Comment on above: Performed By: #### C VDTBH #### [facility] [address] [place] [address] Dr. Ibis Jimenez Neutrophils/100 WBC (Bld) 91.9 % Critically high 43.0-75.0 [facility] Comment on above: Performed By: #### C VDTBH #### [facility] [address] [place] [address] Dr. Ibis Jimenez Platelet mean volume (Bld) [Entitic vol] 9.1 fL Critically low 9.5-13.5 [facility] Comment on above: Performed By: #### C VDTBH #### [facility] [address] [place] [address] Dr. Ibis Jimenez PLT 240 103/ul Normal 150-450 [facility] Comment on above: Performed By: #### C VDTBH #### [facility] [address] [place] [address] Dr. Ibis Jimenez RBC 4.40 106/ul Normal 4.20-5.40 [facility] Comment on above: Performed By: #### C VDTBH #### [facility] [address] [place] [address] Dr. Ibis Jimenez WBC 11.0 103/ul Normal 4.0-11.0 [facility] Comment on above: Performed By: #### C VDTBH #### [facility] [address] [place] [address] Dr. Ibis Jimenez PROF 14(COMP METB)on 023 Albumin [Mass/Vol] 3.3 g/dL Critically low 3.4-5.0 [facility] Comment on above: Performed By: #### B MP #### [facility] [address] [place] [address] Dr. Ibis Jimenez Albumin/Globulin [Mass ratio] 0.9 {ratio} Normal [facility] Comment on above: Performed By: #### B MP #### [facility] [address] [place] [address] Dr. Ibis Jimenez ALP [Catalytic activity/Vol] 63 U/L Normal 46-116 [facility] Comment on above: Performed By: #### B MP #### [facility] [address] [place] [address] Dr. Ibis Jimenez ALT [Catalytic activity/Vol] 32 U/L Normal 14-59 [facility] Comment on above: Performed By: #### B MP #### [facility] [address] [place] [address] Dr. Ibis Jimenez Anion gap [Moles/Vol] 12.9 mmol/L Normal [facility] Comment on above: Performed By: #### B MP #### [facility] [address] [place] [address] Dr. Ibis Jimenez AST [Catalytic activity/Vol] 14 U/L Critically low 15-37 [facility] Comment on above: Performed By: #### B MP #### [facility] [address] [place] [address] Dr. Ibis Jimenez Bilirubin [Mass/Vol] 0.2 mg/dL Normal 0.2-1.0 [facility] Comment on above: Performed By: #### B MP #### [facility] [address] [place] [address] Dr. Ibis Jimenez Calcium [Mass/Vol] 8.5 mg/dL Normal 8.5-10.1 [facility] Comment on above: Performed By: #### B MP #### [facility] [address] [place] [address] Dr. Ibis Jimenez Chloride [Moles/Vol] 106 mmol/L Normal 98-107 [facility] Comment on above: Performed By: #### B MP #### [facility] [address] [place] [address] Dr. Ibis Jimenez CO2 [Moles/Vol] 26.6 mmol/L Normal 21.0-32.0 [facility] Comment on above: Performed By: #### B MP #### [facility] [address] [place] [address] Dr. Ibis Jimenez Creatinine [Mass/Vol] 0.89 mg/dL Normal 0.55-1.02 [facility] Comment on above: Performed By: #### B MP #### [facility] [address] [place] [address] Dr. Ibis Jimenez EGFR-AF [place] >60 Normal >=60 [facility] Comment on above: Performed By: #### B MP #### [facility] [address] [place] [address] Dr. Ibis Jimenez EGFR-NON AF [place] >60 Normal >=60 [facility] Comment on above: Performed By: #### B MP #### [facility] [address] [place] [address] Dr. Ibis Jimenez Globulin (S) [Mass/Vol] 3.6 g/dL Normal T [facility] Comment on above: Performed By: #### B MP #### [facility] [address] [address] [address] Ibis Jimenez Glucose [Mass/Vol] 134 mg/dL Critically high 74-106 T [facility] Comment on above: Performed By: #### B MP #### [facility] [address] [address] [address] Ibis Jimenez Potassium [Moles/Vol] 4.5 mmol/L Normal 3.5-5.1 [facility] Comment on above: Performed By: #### B MP #### [facility] [address] [address] [address] Ibis Jimenez Protein [Mass/Vol] 6.9 g/dL Normal 6.4-8.2 [facility] Comment on above: Performed By: #### B MP #### [facility] [address] [place] [address] Dr. Ibis Jimenez Sodium [Moles/Vol] 141 mmol/L Normal 136-145 [facility] Comment on above: Performed By: #### B MP #### [facility] [address] [address] [address] Ibis Jimenez Urea nitrogen [Mass/Vol] 15.0 mg/dL Normal 7.0-18.0 [facility] Comment on above: Performed By: #### B MP #### [facility] [address] [place] [address] Dr. Ibis Jimenez Urea nitrogen/Creatinine [Mass ratio] 16.9 mg/mg Normal [facility] Comment on above: Performed By: #### B MP #### [facility] [address] HEAD WO CONon [...] NICHOLAS MARCUS Date: 2022-05-23 19:25 Normal [facility] CT [place] WO CONon [address] [place] CT CERVICAL SPINE WITHOUT CONTRAST. [...] SINDY UNLU Date: 2022-05-23 19:41 Normal [facility] CBC W Auto Differential pane l (Bld)on 04-01-2022 Basophils (Bld) [#/Vol] 10*3/uL Normal <0.11 [facility] Comment on above: Order Comment: Speci men Type: BLOOD SPECIMEN Ordering Facility: [facility] Address: [address] [place] [id number] Performed By: #### 1 4334-7 #### [facility] CLIA [id number] [address] [place] [address] [place] Basophils/100 WBC (Bld) 0.1 % Normal [facility] Comment on above: Order Comment: Speci men Type: BLOOD SPECIMEN Ordering Facility: [facility] Address: [address] [address] Performed By: #### 1 4334-7 #### [facility] CLIA [id number] [address] [place] [address] [place] Differential cell count method Nom (Bld) Auto Normal [facility] Comment on above: Order Comment: Speci men Type: BLOOD SPECIMEN Ordering Facility: [facility] Address: [address] [place] [address] Performed By: #### 1 4334-7 #### [facility] CLIA [id number] [address] [place] [address] [place] Eosinophils (Bld) [#/Vol] 10*3/uL Normal <0.46 [facility] Comment on above: Order Comment: Speci men Type: BLOOD SPECIMEN Ordering Facility: [facility] Address: [address] [place], [place] [address] Performed By: #### 1 4334-7 #### [facility] CLIA [id number] [address] [place] Eosinophils/100 WBC (Bld) 0.1 % Normal [facility] Comment on above: Order Comment: Speci men Type: BLOOD SPECIMEN Ordering Facility: [facility] Address: [address] [place], [place] [address] Performed By: #### 1 4334-7 #### [facility] CLIA [id number] [address] [place] [address] [place] Erythrocyte distribution width (RBC) [Ratio] 12.6 % Normal 11.5-15.0 [facility] Comment on above: Order Comment: Speci men Type: BLOOD SPECIMEN Ordering Facility: [facility] Address: [address] Performed By: #### 1 4334-7 #### [facility] CLIA [id number] [address] [place] [address] [place] Hematocrit (Bld) [Volume fraction] 40.6 % Normal 36.0-46.0 [facility] Comment on above: Order Comment: Speci men Type: BLOOD SPECIMEN Ordering Facility: [facility] Address: [address] Performed By: #### 1 4334-7 #### [facility] CLIA [id number] [address] [place] [address] [place] Hemoglobin (Bld) [Mass/Vol] 13.6 g/dL Normal 11.5-15.5 [facility] Comment on above: Order Comment: Speci men Type: BLOOD SPECIMEN Ordering Facility: [facility] Address: [address] Performed By: #### 1 4334-7 #### [facility] CLIA [id number] [address] [place] [address] [place] Immature granulocytes (Bld) [#/Vol] 0.04 10*3/uL Normal <0.10 [facility] Comment on above: Order Comment: Speci men Type: BLOOD SPECIMEN Ordering Facility: [facility] Address: [address] [place] [address] Performed By: #### 1 4334-7 #### [facility] CLIA [id number] [address] [place] [address] [place] Immature granulocytes/100 WBC (Bld) 0.5 % Normal [facility] Comment on above: Order Comment: Speci men Type: BLOOD SPECIMEN Ordering Facility: [facility] Address: [address] Performed By: #### 1 4334-7 #### [facility] CLIA [id number] [address] [place] [address] [place] Lymphocytes (Bld) [#/Vol] 0.84 10*3/uL Low 1.00-4.00 [facility] Comment on above: Order Comment: Speci men Type: BLOOD SPECIMEN Ordering Facility: [facility] Address: [address] [place] [address] Performed By: #### 1 4334-7 #### [facility] CLIA [id number] [address] [place] [address] [place] Lymphocytes/100 WBC (Bld) 9.5 % Normal [facility] Comment on above: Order Comment: Speci men Type: BLOOD SPECIMEN Ordering Facility: [facility] Address: [address] [place] [address] Performed By: #### 1 4334-7 #### [facility] CLIA [id number] [address] [place] [address] [place] MCH (RBC) [Entitic mass] 28.8 pg Normal 26.0-34.0 [facility] Comment on above: Order Comment: Speci men Type: BLOOD SPECIMEN Ordering Facility: [facility] Address: [address] [place] [address] Performed By: #### 1 4334-7 #### [facility] CLIA [id number] [address] [place] [address] [place] MCHC (RBC) [Mass/Vol] 33.5 g/dL Normal 30.5-36.0 [facility] Comment on above: Order Comment: Speci men Type: BLOOD SPECIMEN Ordering Facility: [facility] Address: [address] [place] [address] Performed By: #### 1 4334-7 #### [facility] CLIA [id number] [facility] [place] [address] [place] MCV (RBC) [Entitic vol] 85.8 fL Normal 80.0-100.0 [facility] Comment on above: Order Comment: Speci men Type: BLOOD SPECIMEN Ordering Facility: [facility] Address: [address] [place] [address] Performed By: #### 1 4334-7 #### [facility] CLIA [id number] [address] [place] [address] [place] Monocytes (Bld) [#/Vol] 0.06 10*3/uL Normal <0.87 [facility] Comment on above: Order Comment: Speci men Type: BLOOD SPECIMEN Ordering Facility: [facility] Address: [address] [place] [address] Performed By: #### 1 4334-7 #### [facility] CLIA [id number] [address] [place] [address] [place] Monocytes/100 WBC (Bld) 0.7 % Normal [facility] Comment on above: Order Comment: Speci men Type: BLOOD SPECIMEN Ordering Facility: [facility] Address: [address] [place], [place] [address] Performed By: #### 1 4334-7 #### [facility] CLIA [id number] [address] [place] [address] [place] Neutrophils (Bld) [#/Vol] 7.87 10*3/uL High 1.45-7.50 [facility] Comment on above: Order Comment: Speci men Type: BLOOD SPECIMEN Ordering Facility: [facility] Address: [address] [place], [place] [address] Performed By: #### 1 4334-7 #### [facility] CLIA [id number] [address] [place] [address] [place] Neutrophils/100 WBC (Bld) 89.1 % Normal [facility] Comment on above: Order Comment: Speci men Type: BLOOD SPECIMEN Ordering Facility: [facility] Address: [address] [place], [place] [address] Performed By: #### 1 4334-7 #### [facility] CLIA [id number] [address] [place] [address] [place] Nucleated RBC (Bld) [#/Vol] 10*3/uL Normal <0.01 [facility] Comment on above: Order Comment: Speci men Type: BLOOD SPECIMEN Ordering Facility: [facility] Address: [address] Performed By: #### 1 4334-7 #### [facility] CLIA [id number] [address] [place] [address] [place] Nucleated RBC/100 WBC (Bld) [Ratio] 0.0 /100 WBC Normal [facility] Comment on above: Order Comment: Speci men Type: BLOOD SPECIMEN Ordering Facility: [facility] Address: [address] [place], [place] [address] Performed By: #### 1 4334-7 #### [facility] CLIA [id number] [address] [place] [address] [place] Platelet mean volume (Bld) [Entitic vol] 10.0 fL Normal 9.0-12.7 [facility] Comment on above: Order Comment: Speci men Type: BLOOD SPECIMEN Ordering Facility: [facility] Address: [address] [place] [address] Performed By: #### 1 4334-7 #### [facility] CLIA [id number] [address] [place] [address] [place] Platelets (Bld) [#/Vol] 219 10*3/uL Normal 150-400 [facility] Comment on above: Order Comment: Speci men Type: BLOOD SPECIMEN Ordering Facility: [facility] Address: [address] [place], [place] [address] Result Comment: No c lot detected. Performed By: #### 1 4334-7 #### [facility] CLIA [id number] [address] [place] [address] [place] RBC (Bld) [#/Vol] 4.73 10*6/uL Normal 3.90-5.20 [facility] Comment on above: Order Comment: Speci men Type: BLOOD SPECIMEN Ordering Facility: [facility] Address: [address] [place] [address] Performed By: #### 1 4334-7 #### [facility] CLIA [id number] [address] [place] [address] WBC (Bld) [#/Vol] 8.83 10*3/uL Normal 3.70-11.00 [facility] Comment on above: Order Comment: Speci men Type: BLOOD SPECIMEN Ordering Facility: [facility] Address: [address] [place] [address] Performed By: #### 1 4334-7 #### [facility] [place] [id number] [address] [place] [address] CNDSon 04-01-2022 CNDS HNO ID: [id number] Author: Lo Coyle PA-C Service: Neurology Adult Epilepsy Author Type: Physician Diagnostic Technologist Type: Discharge Summary Filed: 04/01/2022 5:40 PM Note Text: ---- Attestation signed by David Goldman MD at 04/02/2022 9:36 AM [facility] ATTENDING NOTE Date of Service: April 02, 2022 [facility] STAFF PHYSICIAN NOTE OF PERSONAL INVOLVEMENT IN [...] I have performed the substantive portion including [id number] and relevant services for a total of < 30 minutes. David Goldman MD Staff Physician [facility] [address] [place] [address] Office ---- DISCHARGE SUMMARY PATIENT NAME: Margaret [...] Dr. Good (more content not included)... Normal [facility] CT HEAD WO CONon 04-01-2022 CT [...] ROBIN IRBY Date: 2022-03-31 22:40 Normal [facility] Comprehensive metabolic 2000 panelon 04-01-2022 Albumin [Mass/Vol] 4.2 g/dL Normal 3.9-4.9 [facility] Comment on above: Order Comment: Chaitanya baker Type: BLOOD SPECIMEN Ordering Facility: [facility] Address: [address] [address] Performed By: #### 1 4334-7 #### [facility] CLIA [id number] [address] [place] [address] [place] ALP [Catalytic activity/Vol] 84 U/L Normal 34-123 [facility] Comment on above: Order Comment: Chaitanya baker Type: BLOOD SPECIMEN Ordering Facility: [facility] Address: [address] [address] Performed By: #### 1 4334-7 #### [facility] CLIA [id number] [address] [place] [address] [place] ALT [Catalytic activity/Vol] 12 U/L Normal 7-38 [facility] Comment on above: Order Comment: Chaitanya baker Type: BLOOD SPECIMEN Ordering Facility: [facility] Address: [address] [address] Performed By: #### 1 4334-7 #### [facility] CLIA [id number] [address] [place] [address] [place] Anion gap [Moles/Vol] 14 mmol/L Normal 9-18 [facility] Comment on above: Order Comment: Speci men Type: BLOOD SPECIMEN Ordering Facility: [facility] Address: [address] Performed By: #### 1 4334-7 #### [facility] CLIA [id number] [address] [place] [address] [place] AST [Catalytic activity/Vol] 14 U/L Normal 13-35 [facility] Comment on above: Order Comment: Speci men Type: BLOOD SPECIMEN Ordering Facility: [facility] Address: [address] [place], [place] [address] Performed By: #### 1 4334-7 #### [facility] CLIA [id number] [address] [place] [address] [place] Bilirubin [Mass/Vol] 0.3 mg/dL Normal 0.2-1.3 [facility] Comment on above: Order Comment: Speci men Type: BLOOD SPECIMEN Ordering Facility: [facility] Address: [address] Performed By: #### 1 4334-7 #### [facility] CLIA [id number] [address] [place] [address] [place] Calcium [Mass/Vol] 8.9 mg/dL Normal 8.5-10.2 [facility] Comment on above: Order Comment: Speci men Type: BLOOD SPECIMEN Ordering Facility: [facility] Address: [address] [place] [address] Performed By: #### 1 4334-7 #### [facility] CLIA [id number] [address] [place] [address] [place] Chloride [Moles/Vol] 105 mmol/L Normal 97-105 [facility] Comment on above: Order Comment: Speci men Type: BLOOD SPECIMEN Ordering Facility: [facility] Address: [address] Performed By: #### 1 4334-7 #### [facility] CLIA [id number] [address] [place] [address] [place] CO2 [Moles/Vol] 20 mmol/L Low 22-30 [facility] Comment on above: Order Comment: Speci men Type: BLOOD SPECIMEN Ordering Facility: [facility] Address: [address] [address] Performed By: #### 1 4334-7 #### [facility] CLIA [id number] [address] [place] [address] [place] Creatinine [Mass/Vol] 0.64 mg/dL Normal 0.58-0.96 [facility] Comment on above: Order Comment: Speci men Type: BLOOD SPECIMEN Ordering Facility: [facility] Address: [address] [place], [place] [address] Performed By: #### 1 4334-7 #### [facility] CLIA [id number] [address] [place] [address] [place] ESTIMATED GLOMERULAR FILTRATION RATE 125 mL/min/1.73m??? Normal >=60 [facility] Comment on above: Order Comment: Speci men Type: BLOOD SPECIMEN Ordering Facility: [facility] Address: [address] Result Comment: Fatou mated Glomerular Filtration Rate [...] GFR. Performed By: #### 1 4334-7 #### [facility] CLIA [id number] [address] [place] [address] [place] Glucose [Mass/Vol] 120 mg/dL High 74-99 [facility] Comment on above: Order Comment: Specnisha baker Type: BLOOD SPECIMEN Ordering Facility: [facility] Address: [address] [place] [address] Result Comment: The [place] [employer] (ADA) provides guidance for cutoff [...] Standards of Medical Care in Diabetes 2016, [place] [employer]. Diabetes Care. 2016.39(Suppl 1). Performed By: #### 1 4334-7 #### [facility] CLIA [id number] [address] [place] [address] [place] Potassium [Moles/Vol] 4.5 mmol/L Normal 3.7-5.1 [facility] Comment on above: Order Comment: Chaitanya men Type: BLOOD SPECIMEN Ordering Facility: [facility] Address: [address] [place] [address] Performed By: #### 1 4334-7 #### [facility] CLIA [id number] [address] [place] [address] [place] Protein [Mass/Vol] 6.9 g/dL Normal 6.3-8.0 [facility] Comment on above: Order Comment: Chaitanya baker Type: BLOOD SPECIMEN Ordering Facility: [facility] Address: [address] [place] [address] Performed By: #### 1 4334-7 #### [facility] CLIA [id number] [address] [place] [address] [place] Sodium [Moles/Vol] 139 mmol/L Normal 136-144 [facility] Comment on above: Order Comment: Speci men Type: BLOOD SPECIMEN Ordering Facility: [facility] Address: [address] [address] Performed By: #### 1 4334-7 #### [facility] CLIA [id number] [address] [place] [address] [place] Urea nitrogen [Mass/Vol] 11 mg/dL Normal 7-21 [facility] Comment on above: Order Comment: Speci men Type: BLOOD SPECIMEN Ordering Facility: [facility] Address: [address] [address] Performed By: #### 1 4334-7 #### [facility] CLIA [id number] [address] [place] [address] [place] Covid-19 PCR (CVDTB)on 03-23 SARS-CoV-2 (COVID-19) RNA SAURABH+probe Ql (Unsp spec) Not detected Normal NOT DETECTED [facility] Comment on above: Result Comment: When [...] for this test is supported by the [place] of Health and Human Service's declaration that [...] used). Performed By: #### C VDTBH #### [facility] [address] [place] [address] Dr. Ibis Jimenez ECG COMPLETEon 04-01-2022 ECG COMPLETE Ventricular Rate : 98 BPM Atrial Rate : 98 BPM P-R Interval : 154 ms QRS Duration : 76 ms Q-T Interval : 364 ms QTC Calculation(Bazett) : 464 ms Calculated P [place] : 51 degrees Calculated R [place] : 60 degrees Calculated T [place] : 54 degrees NORMAL SINUS RHYTHM NORMAL ECG Confirmed by MD MELTON HEBA ([id number]) on 04/04/2022 2:47:00 PM NAME : MARGARET NICHOLSON PID : [id number] : 1995 Gender : Female Race : ORD : [id number] Procedure Date : Apr 01 2022 11:53:22 Edit Date : Apr 04 2022 14:47:01 Diagnosis: NORMAL SINUS RHYTHM NORMAL ECG Confirmed by MD MELTON HEBA ([id number]) on 04/04/2022 2:47:00 PM Test Reason : Chest Pain Location : 89 : M80 M080-06 Overread By : MD MELTON HEBA Edited By : MD MELTON HEBA Referred By : DINORAH IVY Acquired by : AUSTIN HSU Normal [facility] URINE PROFILEon 3 Bilirubin Ql (U) Negative Normal NEGATIVE [facility] Comment on above: Performed By: #### A CET, SALYC #### [facility] [address] [place] [address] Dr. Ibis Jimenez Clarity (U) CLEAR Normal CLEAR [facility] Comment on above: Performed By: #### A CET, SALYC #### [facility] [address] [place] [address] Dr. Ibis Jimenez Color (U) YELLOW Normal YELLOW [facility] Comment on above: Performed By: #### A CET, SALYC #### [facility] [address] [place] [address] Dr. Ibis RODRIGUEZ A micrscopic examination will be performed if indicated. Normal [facility] Comment on above: Performed By: #### A CET, SALYC #### [facility] [address] [place] [address] Dr. Ibis Jimenez Glucose Ql (U) Negative Normal NEGATIVE [facility] Comment on above: Performed By: #### A CET, SALYC #### [facility] [address] [place] [address] Dr. Ibis Jimenez Hemoglobin Ql (U) SMALL Abnormal NEGATIVE [facility] Comment on above: Performed By: #### A CET, SALYC #### [facility] [address] [place] [address] Dr. Ibis Jimenez Ketones Ql (U) Negative Normal NEGATIVE [facility] Comment on above: Performed By: #### A CET, SALYC #### [facility] [address] [place] [address] Dr. Ibis Jimenez LEUKOCYTES Negative Normal NEGATIVE [facility] Comment on above: Performed By: #### A CET, SALYC #### [facility] [address] [place] [address] Dr. Ibis Jimenez Nitrite Ql (U) Negative Normal NEGATIVE [facility] Comment on above: Performed By: #### A CET, SALYC #### [facility] [address] [place] [address] Dr. Ibis Jimenez pH (U) 5.5 [pH] Normal 5-9 [facility] Comment on above: Performed By: #### A CET, SALYC #### [facility] [address] [place] [address] Dr. Ibis Jimenez SPEC GRAVITY >=1.030 Abnormal 1.005-<=1.[address] [place] [address] Comment on above: Performed By: #### A CET, SALYC #### [facility] [address] [place] [address] Dr. Ibis Jimenez UA PROTEIN Negative Normal NEGATIVE/ TRACE [facility] Comment on above: Performed By: #### A CET, SALYC #### [facility] [address] [place] [address] Dr. Ibis Jimenez UR MICRO IND INDICATED Normal [facility] Comment on above: Performed By: #### A CET, SALYC #### [facility] [address] [place] [address] Dr. Ibis Jimenez Urobilinogen Qn (U) 0.2 {Dinorah'U}/dL Normal 0.2 - 1. 0 [facility] Comment on above: Performed By: #### A KORI DAVIS #### [facility] [address] [address] [address] Ibis Jimenez HISTORY PHYSICALon 3 HISTORY PHYSICAL HNO ID: [id number] Author: David Goldman MD Service: Neurology Adult Epilepsy Author Type: Physician Type: HANDP Filed: 04/01/2022 5:15 PM Note Text: NEURO EPILEPSY ADMIT NOTE SERVICE DATE: 04/01/2022 SERVICE TIME: 5:10 AM NIGHT AND WEEKEND COVERAGE: After 5 pm and over the weekends, please page [phone] to contact the epilepsy resident/fellow/pro vider tester semiconductor packages ATTENDING PHYSICIAN: Dr. Goldman [facility] UNIT: M60 - Adult Epilepsy Monitoring Unit [...] seizures. Margaret was transferred this morning from [place] [facility] for reported 15-16 seizures. She was given 1,000mg IV Keppra at 2155 and a total of 4mg IV Ativan at (1mg at 2026, 1mg at 2118 and 2mg at 224). CT brain completed read as no acute intracranial abnormality. UA negative for infection. From ER records: Brought by her family's beautician apprentice after she had some seizures at home. [...] After event, she complains memory issues/vision issues. [facility] admission documentation ([facility] [place]) ADMISSION DATE: 10/19/21 DISCHARGE DATE: 10/20/21 Patient was hooked up to fci video EEG monitoring or LTME. Overnight, patient [...] Onset: 2018 (more content not included)... Normal [facility] INFLUENZA A AND B [facility] 04[facility] SEE BELOW Normal [facility] Comment on above: Result Comment: Nega tive for Flu A protein angiten. Infection due to Flu A cannot be ruled out. Flu A angiten in the sample may be below the detection limit of the test. Performed By: #### A MM #### [facility] [address] [place] [address] Dr. [facility]bis [facility] Comment on above: Result Comment: Nega tive for Flu B protein antigen. Infection due to Flu B cannot be ruled out. Flu B antigen in the sample may be below the detection limit of the test. Performed By: #### A MM #### [facility] [address] [place] [address] Dr. Ibis Jimenez INFLUENZA A AG Negative Normal NEGATIVE SEE COMMENT [facility] Comment on above: Performed By: #### A MM #### [facility] [address] [place] [address] Dr. Ibis Jimenez INFLUENZA B AG Negative Normal NEGATIVE SEE COMMENT [facility] Comment on above: Performed By: #### A MM #### [facility] [address] [place] [address] Dr. Ibis Jimenez LACTATE/LACTIC ACIDon 2022 Lactate [Moles/Vol] 1.9 mmol/L Normal 0.4-1.9 [facility] Comment on above: Performed By: #### L ACT #### [facility] [address] [place], [place] [address] Dr. Ibis Jimenez Marie SerPl-sCncon 023 Marie [Moles/Vol] 0.1 mmol/L Low 0.6-1.2 [facility] Comment on above: Order Comment: Specnisha baker Type: BLOOD SPECIMEN Ordering Facility: [facility] Address: [address] [place] [address] Result Comment: Refe rence ranges and high/low indicator flags are provided as general guidelines only. The treating physician must determine appropriate target levels/dosing based on the specific clinical situation. Performed By: #### 1 4334-7 #### [facility] CLIA [id number] [address] [place] [address] OF [place] Magnesium SerPl-mCncon 04-01 Magnesium [Mass/Vol] 1.8 mg/dL Normal 1.7-2.3 [facility] Comment on above: Order Comment: Chaitanya baker Type: BLOOD SPECIMEN Ordering Facility: [facility] Address: [address] [place] [address] Performed By: #### 1 4334-7 #### [facility] CLIA [id number] [address] [place] [address] [place] NURSING PROGon 04-01-2022 NURSING PROG HNO ID: [id number] Author: Gabino Cadena RN Service: Nursing Author Type: Registered Nurse Type: Nursing Progress Note Filed: 04/01/2022 5:55 AM Note Text: The patient arrives to [facility] bed 6 at this time via cart [...] admission questions when patient condition allows. Normal [facility] Phosphate SerPl-mCncon 04-01 Phosphate [Mass/Vol] 2.7 mg/dL Normal 2.7-4.8 [facility] Comment on above: Order Comment: Speci men Type: BLOOD SPECIMEN Ordering Facility: [facility] Address: [address] [place] [address] Performed By: #### 1 4334-7 #### [facility] CLIA [id number] [address] [place] [address] [place] SARS-CoV-2 RNA Resp Ql SAURABH+p robeon 04-01-2022 SARS-CoV-2 (COVID-19) RNA SAURABH+probe Ql (Resp) COVID 19 RESULT: Not detected The method used is RT-PCR or an equivalent NAAT method. Reference Range(the expected result in uninfected individuals): Not detected Normal [facility] Comment on above: Performed By: #### 9 4500-6 ####[facility] [id number] [address] [place] SOCIAL WORKon 04-01-2022 SOCIAL WORK HNO ID: [id number] Author: GABRIELE Huynh Service: Social Work Author Type: [employer] Maker Type: Social Work Filed: 04/01/2022 4:21 PM [...] childhood stating that's confidential information when this procedure writer asks about history of trauma during [...] informs she has income from her children's [employer] benefits. PSYCHIATRIC HISTORY: Per chart review, patient has a history of depression, anxiety, PTSD, and bipolar disorder; these diagnoses are confirmed by patient. She reports having a therapist, Lucy, through [facility] and also has a psychiatrist. Patient informs [...] health provide (more content not included)... Normal [facility] TSH SerPl-aCncon 04-01-2022 TSH Qn 0.537 m[IU]/L Normal 0.270-4.200 [facility] Comment on above: Order Comment: Speci men Type: BLOOD SPECIMEN Ordering Facility: [facility] Address: [address] [place] [id number] Result Comment: If t he patient is , TSH reference range varies by gestational period: First Trimester (weeks 9-12): 0.180-2.990 mIU/L Second Trimester: 0.110-3.980 mIU/L Third Trimester: 0.480-4.710 mIU/L Sanford Fernández et al. A Practical Approach for the Verifications and Determination of Site- and Trimester-Specific Reference Intervals for Thyroid Function tests in . Thyroid, 2019:29:3:412-420. Lior Gan et al. 2017 Guidelines of the [place] Thyroid [employer] for the Diagnosis and Management of Thyroid Disease during and the . Thyroid, 2017:27:3:315-389. Performed By: #### 1 4334-7 #### [facility] CLIA [id number] [address] [place] [address] [place] [facility] URINE MICROSCOPIC ONLYon BACTERIA TRACE Abnormal NONE SEEN [facility] Comment on above: Performed By: #### A CET, SALYC #### [facility] [address] [place] [address] Dr. Ibis Jimenez Bacteria identified Cx Nom (U) NOT INDICATED Normal [facility] Comment on above: Performed By: #### A CET, SALYC #### [facility] [address] [place] [address] Dr. Ibis Jimenez CAST NONE SEEN Normal NONE SEEN [facility] Comment on above: Performed By: #### A CET, SALYC #### [facility] [address] [place] [address] Dr. Ibis Jimenez Crystals LM Nom (Urine sed) NONE SEEN Normal NONE SEEN [facility] Comment on above: Performed By: #### A CET, SALYC #### [facility] [address] [place] [address] Dr. Ibis Jimenez Epithelial cells LM Ql (Urine sed) RARE Normal NONE SEEN /RARE [facility] Comment on above: Performed By: #### A CET, SALYC #### [facility] [address] [place] [address] Dr. Ibis Jimenez MUCOUS TRACE Abnormal NONE SEEN [facility] Comment on above: Performed By: #### A CET, SALYC #### [facility] [address] [place] [address] Dr. Ibis Jimenez RBC 0-2 Normal 0-2 [facility] Comment on above: Performed By: #### A CET, SALYC #### [facility] [address] [place] [address] Dr. Ibis Jimenez WBC NONE SEEN Normal NONE SEEN [facility] Comment on above: Performed By: #### A CET, SALYC #### [facility] [address] [place] [address] Dr. Ibis Jimenez AMMONIAon 03-31-2022 Ammonia (P) [Moles/Vol] 31 umol/L Normal 11-32 [facility] Comment on above: Performed By: #### A MM #### [facility] [address] [place] [address] Dr. Ibis Jimenez CBC AUTO DIFFon 03-31-2022 BASO # 0.0 103/ul Normal 0.0-0.1 [facility] Comment on above: Performed By: #### A MM #### [facility] [address] [place] [address] Dr. Ibis Jimenez Basophils/100 WBC (Bld) 0.4 % Normal 0.2-2.0 [facility] Comment on above: Performed By: #### A MM #### [facility] [address] [place] [address] Dr. Ibis Jimenez EO # 0.5 103/ul Normal 0.0-0.7 [facility] Comment on above: Performed By: #### A MM #### [facility] [address] [place] [address] Dr. Ibis Jimenez Eosinophils/100 WBC (Bld) 6.4 % Normal 0.9-7.0 [facility] Comment on above: Performed By: #### A MM #### [facility] [address] [place] [address] Dr. Ibis Jimenez Erythrocyte distribution width (RBC) [Ratio] 12.8 % Normal 11.0-15.0 [facility] Comment on above: Performed By: #### A MM #### [facility] [address] [place] [address] Dr. Ibis Jimenez Hematocrit (Bld) [Volume fraction] 36.6 % Normal 36.0-48.0 [facility] Comment on above: Performed By: #### A MM #### [facility] [address] [place] [address] Dr. Ibis Jimenez Hemoglobin (Bld) [Mass/Vol] 12.5 g/dL Normal 12.0-16.0 [facility] Comment on above: Performed By: #### A MM #### [facility] [address] [place] [address] Dr. Ibis Jimenez IG # 0.02 10e3/ul Normal 0.00-0.03 [facility] Comment on above: Performed By: #### A MM #### [facility] [address] [place] [address] Dr. Ibis Jimenez IG % 0.3 % Normal 0.0-0.5 [facility] Comment on above: Performed By: #### A MM #### [facility] [address] [place] [address] Dr. Ibis Jimenez LYMPH # 2.0 103/ul Normal 1.2-3.8 [facility] Comment on above: Performed By: #### A MM #### [facility] [address] [place] [address] Dr. Ibis Jimenez Lymphocytes/100 WBC (Bld) 25.0 % Normal 20.5-60.0 [facility] Comment on above: Performed By: #### A MM #### [facility] [address] [place] [address] Dr. Ibis Jimenez MANUAL DIFF REQ NO Normal [facility] Comment on above: Performed By: #### A MM #### [facility] [address] [place] [address] Dr. Ibis Jimenez MCH (RBC) [Entitic mass] 29.5 pg Normal 26.7-34.0 [facility] Comment on above: Performed By: #### A MM #### [facility] [address] [place] [address] Dr. Ibis Jimenez MCHC (RBC) [Mass/Vol] 34.2 g/dL Normal 29.9-35.2 [facility] Comment on above: Performed By: #### A MM #### [facility] [address] [place] [address] Dr. Ibis Jimenez MCV (RBC) [Entitic vol] 86.3 fL Normal 81.0-99.0 [facility] Comment on above: Performed By: #### A MM #### [facility] [address] [place] [address] Dr. Ibis Jimenez MONO # 0.4 103/ul Normal 0.3-0.8 [facility] Comment on above: Performed By: #### A MM #### [facility] [address] [place] [address] Dr. Ibis Jimenez Monocytes/100 WBC (Bld) 5.6 % Normal 1.7-12.0 [facility] Comment on above: Performed By: #### A MM #### [facility] [address] [place] [address] Dr. Ibis Jimenez NEUT # 4.9 103/ul Normal 1.4-6.5 [facility] Comment on above: Performed By: #### A MM #### [facility] [address] [place] [address] Dr. Ibis Jimenez Neutrophils/100 WBC (Bld) 62.3 % Normal 43.0-75.0 [facility] Comment on above: Performed By: #### A MM #### [facility] [address] [place] [address] Dr. Ibis Jimenez Platelet mean volume (Bld) [Entitic vol] 9.5 fL Normal 9.5-13.5 [facility] Comment on above: Performed By: #### A MM #### [facility] [address] [place] [address] Dr. Ibis Jimenez PLT 246 103/ul Normal 150-450 [facility] Comment on above: Performed By: #### A MM #### [facility] [address] [place] [address] Dr. Ibis Jimenez RBC 4.24 106/ul Normal 4.20-5.40 [facility] Comment on above: Performed By: #### A MM #### [facility] [address] [place] [address] Dr. Ibis Jimenez WBC 7.8 103/ul Normal 4.0-11.0 [facility] Comment on above: Performed By: #### A MM #### [facility] [address] [place] [address] Dr. Ibis Jimenez CULTURE BLOODon 03-31-2022 Microscopic examination of blood, culture Culture Observations: NO GROWTH AT 5 DAYS. Normal [facility] Comment on above: Performed By: #### B LDCX2 #### [facility] [address] [place] [address] Dr. Ibis Jimenez Microscopic examination of blood, culture Culture Observations: NO GROWTH AT 5 DAYS. Normal [facility] Comment on above: Performed By: #### B MP #### [facility] [address] [place] [address] Dr. Ibis Jimenez LACTATE/LACTIC ACIDon 2022 Lactate [Moles/Vol] 2.8 mmol/L Critically high 0.4-1.9 [facility] Comment on above: Performed By: #### C VDTBH #### [facility] [address] [place] [address] Dr. Ibis Jimenez PROF 14(COMP METB)on 023 Albumin [Mass/Vol] 3.4 g/dL Normal 3.4-5.0 [facility] Comment on above: Performed By: #### B MP #### [facility] [address] [place] [address] Dr. Ibis Jimenez Albumin/Globulin [Mass ratio] 1.2 {ratio} Normal [facility] Comment on above: Performed By: #### B MP #### [facility] [address] [place] [address] Dr. Ibsi Jimenez ALP [Catalytic activity/Vol] 85 U/L Normal 46-116 [facility] Comment on above: Performed By: #### B MP #### [facility] [address] [place] [address] Dr. Ibis Jimenez ALT [Catalytic activity/Vol] 18 U/L Normal 14-59 [facility] Comment on above: Performed By: #### B MP #### [facility] [address] [place] [address] Dr. Ibis Jimenez Anion gap [Moles/Vol] 13.2 mmol/L Normal [facility] Comment on above: Performed By: #### B MP #### [facility] [address] [place] [address] Dr. Ibis Jimenez AST [Catalytic activity/Vol] 11 U/L Critically low 15-37 [facility] Comment on above: Performed By: #### B MP #### [facility] [address] [place] [address] Dr. Ibis Jimenez Bilirubin [Mass/Vol] 0.2 mg/dL Normal 0.2-1.0 [facility] Comment on above: Performed By: #### B MP #### [facility] [address] [address] [address] Ibis Jimenez Calcium [Mass/Vol] 8.6 mg/dL Normal 8.5-10.1 [facility] Comment on above: Performed By: #### B MP #### [facility] [address] [place] [address] Dr. Ibis Jimenez Chloride [Moles/Vol] 105 mmol/L Normal 98-107 [facility] Comment on above: Performed By: #### B MP #### [facility] [address] [place] [address] Dr. Ibis Jimenez CO2 [Moles/Vol] 25.1 mmol/L Normal 21.0-32.0 [facility] Comment on above: Performed By: #### B MP #### [facility] [address] [place] [address] Dr. Ibis Jimenez Creatinine [Mass/Vol] 0.80 mg/dL Normal 0.55-1.02 [facility] Comment on above: Performed By: #### B MP #### [facility] [address] [place] [address] Dr. Ibis Jimenez EGFR-AF [place]AST [place] >60 Normal >=60 [facility] Comment on above: Performed By: #### B MP #### [facility] [address] [place] [address] Dr. Ibis Jimenez EGFR-NON AF [place] >60 Normal >=60 [facility] Comment on above: Performed By: #### B MP #### [facility] [address] [place] [address] Dr. Ibis Jimenez Globulin (S) [Mass/Vol] 2.9 g/dL Normal T [facility] Comment on above: Performed By: #### B MP #### [facility] [address] [address] [address] Ibis Jimenez Glucose [Mass/Vol] 99 mg/dL Normal 74-106 [facility] Comment on above: Performed By: #### B MP #### [facility] [address] [address] [address] Ibis Jimenez Potassium [Moles/Vol] 3.3 mmol/L Critically low 3.5-5.1 [facility] Comment on above: Performed By: #### B MP #### [facility] [address] [address] [address] Ibis Jimenez Protein [Mass/Vol] 6.3 g/dL Critically low 6.4-8.2 [facility] Comment on above: Performed By: #### B MP #### [facility] [address] [place] [address] Dr. Ibis Jimenez Sodium [Moles/Vol] 140 mmol/L Normal 136-145 [facility] Comment on above: Performed By: #### B MP #### [facility] [address] [place] [address] Dr. Ibis Jimenez Urea nitrogen [Mass/Vol] 10.0 mg/dL Normal 7.0-18.0 [facility] Comment on above: Performed By: #### B MP #### [facility] [address] [place] [address] Dr. Ibis Jimenez Urea nitrogen/Creatinine [Mass ratio] 12.5 mg/mg Normal [facility] Comment on above: Performed By: #### B MP #### [facility] [address] [address] [address] Ibis Jimenez CBC AUTO DIFFon 01-14-2022 BASO # 0.0 103/ul Normal 0.0-0.1 [facility] Comment on above: Performed By: #### A MM #### [facility] [address] [address] [address] Ibis Jimenez Basophils/100 WBC (Bld) 0.3 % Normal 0.2-2.0 [facility] Comment on above: Performed By: #### A MM #### [facility] [address] [place] [address] Dr. Ibis Jimenez EO # 0.2 103/ul Normal 0.0-0.7 [facility] Comment on above: Performed By: #### A MM #### [facility] [address] [place] [address] Dr. Ibis Jimenez Eosinophils/100 WBC (Bld) 2.7 % Normal 0.9-7.0 [facility] Comment on above: Performed By: #### A MM #### [facility] [address] [place] [address] Dr. Ibis Jimenez Erythrocyte distribution width (RBC) [Ratio] 13.2 % Normal 11.0-15.0 [facility] Comment on above: Performed By: #### A MM #### [facility] [address] [place] [address] Dr. Ibis Jimenez Hematocrit (Bld) [Volume fraction] 35.7 % Critically low 36.0-48.0 [facility] Comment on above: Performed By: #### A MM #### [facility] [address] [place] [address] Dr. Ibis Jimenez Hemoglobin (Bld) [Mass/Vol] 12.2 g/dL Normal 12.0-16.0 [facility] Comment on above: Performed By: #### A MM #### [facility] [address] [place] [address] Dr. Ibis Jimenez IG # 0.04 10e3/ul Critically high 0.00-0.03 [facility] Comment on above: Performed By: #### A MM #### [facility] [address] [place] [address] Dr. Ibis Jimenez IG % 0.5 % Normal 0.0-0.5 [facility] Comment on above: Performed By: #### A MM #### [facility] [address] [place] [address] Dr. Ibis Jimenez LYMPH # 2.1 103/ul Normal 1.2-3.8 [facility] Comment on above: Performed By: #### A MM #### [facility] [address] [address] [address] Ibis Jimenez Lymphocytes/100 WBC (Bld) 27.3 % Normal 20.5-60.0 [facility] Comment on above: Performed By: #### A MM #### [facility] [address] [address] [address] Ibis Jimenez MANUAL DIFF REQ NO Normal [facility] Comment on above: Performed By: #### A MM #### [facility] [address] [place] [address] Dr. Ibis Jimenez MCH (RBC) [Entitic mass] 29.0 pg Normal 26.7-34.0 [facility] Comment on above: Performed By: #### A MM #### [facility] [address] [place] [address] Dr. Ibis Jimenez MCHC (RBC) [Mass/Vol] 34.2 g/dL Normal 29.9-35.2 [facility] Comment on above: Performed By: #### A MM #### [facility] [address] [place] [address] Dr. Ibis Jimenez MCV (RBC) [Entitic vol] 84.8 fL Normal 81.0-99.0 [facility] Comment on above: Performed By: #### A MM #### [facility] [address] [place] [address] Dr. Ibis Jimenez MONO # 0.7 103/ul Normal 0.3-0.8 [facility] Comment on above: Performed By: #### A MM #### [facility] [address] [place] [address] Dr. Ibis Jimenez Monocytes/100 WBC (Bld) 8.7 % Normal 1.7-12.0 [facility] Comment on above: Performed By: #### A MM #### [facility] [address] [place] [address] Dr. Ibis Jimenez NEUT # 4.7 103/ul Normal 1.4-6.5 [facility] Comment on above: Performed By: #### A MM #### [facility] [address] [place] [address] Dr. Ibis Jimenez Neutrophils/100 WBC (Bld) 60.5 % Normal 43.0-75.0 [facility] Comment on above: Performed By: #### A MM #### [facility] [address] [place] [address] Dr. Ibis Jimenez Platelet mean volume (Bld) [Entitic vol] 9.6 fL Normal 9.5-13.5 [facility] Comment on above: Performed By: #### A MM #### [facility] [address] [place] [address] Dr. Ibis Jimenez PLT 212 103/ul Normal 150-450 [facility] Comment on above: Performed By: #### A MM #### [facility] [address] [place] [address] Dr. Ibis Jimenez RBC 4.21 106/ul Normal 4.20-5.40 [facility] Comment on above: Performed By: #### A MM #### [facility] [address] [place] [address] Dr. Ibis Jimenez WBC 7.7 103/ul Normal 4.0-11.0 [facility] Comment on above: Performed By: #### A MM #### [facility] [address] [place] [address] ABD/PELV W CONon [...] TONY DAHL Date: 2022-01-14 20:01 Normal [facility] URINE PROFILEon 2 Bilirubin Ql (U) Negative Normal NEGATIVE [facility] Comment on above: Performed By: #### A CET, SALYC #### [facility] [address] [place] [address] Dr. Ibis Jimenez Clarity (U) CLEAR Normal CLEAR [facility] Comment on above: Performed By: #### A CET, SALYC #### [facility] [address] [place] [address] Dr. Ibis Jimenez Color (U) LT. YELLOW Normal YELLOW [facility] Comment on above: Performed By: #### A CET, SALYC #### [facility] [address] [place] [address] Dr. Ibis Jimenez ERUAHKishan A micrscopic examination will be performed if indicated. Normal [facility] Comment on above: Performed By: #### A CET, SALYC #### [facility] [address] [place] [address] Dr. Ibis iJmenez Glucose Ql (U) Negative Normal NEGATIVE [facility] Comment on above: Performed By: #### A CET, SALYC #### [facility] [address] [place], [place] [id number] Dr. Ibis Jimenez Hemoglobin Ql (U) Negative Normal NEGATIVE [facility] Comment on above: Performed By: #### A CET, SALYC #### [facility] [address] [place] [address] Dr. Ibis Jimenez Ketones Ql (U) Negative Normal NEGATIVE [facility] Comment on above: Performed By: #### A CET, SALYC #### [facility] [address] [place] [address] Dr. Ibis Jimenez LEUKOCYTES TRACE Abnormal NEGATIVE [facility] Comment on above: Performed By: #### A CET, SALYC #### [facility] [address] [place] [address] Dr. Ibis Jimenez Nitrite Ql (U) Negative Normal NEGATIVE [facility] Comment on above: Performed By: #### A CET, SALYC #### [facility] [address] [place] [address] Dr. Ibis Jimenez pH (U) 5.5 [pH] Normal 5-9 [facility] Comment on above: Performed By: #### A CET, SALYC #### [facility] [address] [place] [address] Dr. Ibis Jimenez SPEC GRAVITY 1.025 Normal 1.005-<=1.[address] [place] [address] Comment on above: Performed By: #### A CET, SALYC #### [facility] [address] [place] [address] Dr. Ibis Jimenez UA PROTEIN Negative Normal NEGATIVE/ TRACE [facility] Comment on above: Performed By: #### A CET, SALYC #### [facility] [address] [place] [address] Dr. Ibis Jimenez UR MICRO IND INDICATED Normal [facility] Comment on above: Performed By: #### A CET, SALYC #### [facility] [address] [place] [address] Dr. Ibis Jimenez Urobilinogen Qn (U) 0.2 {Dinorah'U}/dL Normal 0.2 - 1. 0 [facility] Comment on above: Performed By: #### A CET, SALYC #### [facility] [address] [address] [address] Ibis Jimenez URon 01-14-2022 , QUAL Negative Normal NEGATIVE [facility] Comment on above: Performed By: #### A CET, SALYC #### [facility] [address] [address] [address] Ibis Jimenez PROF CHEM 8 (BAS METB)on Anion gap [Moles/Vol] 9.9 mmol/L Normal [facility] Comment on above: Performed By: #### B MP #### [facility] [address] [address] [address] Ibis Jimenez Calcium [Mass/Vol] 8.6 mg/dL Normal 8.5-10.1 [facility] Comment on above: Performed By: #### B MP #### [facility] [address] [address] [address] Ibis Jimenez Chloride [Moles/Vol] 105 mmol/L Normal 98-107 [facility] Comment on above: Performed By: #### B MP #### [facility] [address] [address] [address] Ibis Jimenez CO2 [Moles/Vol] 27.5 mmol/L Normal 21.0-32.0 [facility] Comment on above: Performed By: #### B MP #### [facility] [address] [address] [address] Ibis Jimenez Creatinine [Mass/Vol] 0.70 mg/dL Normal 0.55-1.02 [facility] Comment on above: Performed By: #### B MP #### [facility] [address] [address] [address] Ibis Jimenez EGFR-AF EAST [place] >60 Normal >=60 [facility] Comment on above: Performed By: #### B MP #### [facility] [address] [address] [address] Ibis Jimenez EGFR-NON AF [place] >60 Normal >=60 [facility] Comment on above: Performed By: #### B MP #### [facility] [address] [place] [address] Dr. Ibis Jimenez Glucose [Mass/Vol] 83 mg/dL Normal 74-106 [facility] Comment on above: Performed By: #### B MP #### [facility] [address] [place] [address] Dr. Ibis Jimenez Potassium [Moles/Vol] 4.4 mmol/L Normal 3.5-5.1 [facility] Comment on above: Performed By: #### B MP #### [facility] [address] [place] [address] Dr. Ibis Jimenez Sodium [Moles/Vol] 138 mmol/L Normal 136-145 [facility] Comment on above: Performed By: #### B MP #### [facility] [address] [place] [address] Dr. Ibis Jimenez Urea nitrogen [Mass/Vol] 13.0 mg/dL Normal 7.0-18.0 [facility] Comment on above: Performed By: #### B MP #### [facility] [address] [place] [address] Dr. Ibis Jimenez Urea nitrogen/Creatinine [Mass ratio] 18.6 mg/mg Normal [facility] Comment on above: Performed By: #### B MP #### [facility] [address] [place] [address] Dr. Ibis Jimenez URINE MICROSCOPIC ONLYon BACTERIA NONE SEEN Normal NONE SEEN [facility] Comment on above: Performed By: #### A CET SALYC #### [facility] [address] [place] [address] Dr. Ibis Jimenez Bacteria identified Cx Nom (U) NOT INDICATED Normal [facility] Comment on above: Performed By: #### A CET, SALYC #### [facility] [address] [place] [address] Dr. Ibis Jimenez CAST NONE SEEN Normal NONE SEEN [facility] Comment on above: Performed By: #### A CET, SALYC #### [facility] [address] [place] [address] Dr. Ibis Jimenez Crystals LM Nom (Urine sed) NONE SEEN Normal NONE SEEN [facility] Comment on above: Performed By: #### A CET, SALYC #### [facility] [address] [place] [address] Dr. Ibis Jimenez Epithelial cells LM Ql (Urine sed) FEW Abnormal NONE SEEN /RARE [facility] Comment on above: Performed By: #### A CET, SALYC #### [facility] [address] [place] [address] Dr. Ibis Jimenez MUCOUS NONE SEEN Normal NONE SEEN [facility] Comment on above: Performed By: #### A CET, SALYC #### [facility] [address] [place] [address] Dr. Ibis Jimenez RBC NONE SEEN Abnormal 0-2 [facility] Comment on above: Performed By: #### A CET, SALYC #### [facility] [address] [place] [address] Dr. Ibis Jimenez WBC NONE SEEN Normal NONE SEEN [facility] Comment on above: Performed By: #### A CET, SALYC #### [facility] [address] [place] [address] Dr. Ibis Jimenez CBC AUTO DIFFon 01-07-2022 BASO # 0.0 103/ul Normal 0.0-0.1 [facility] Comment on above: Performed By: #### A CET, SALYC #### [facility] [address] [place] [address] Dr. Ibis Jimenez Basophils/100 WBC (Bld) 0.2 % Normal 0.2-2.0 [facility] Comment on above: Performed By: #### A CET, SALYC #### [facility] [address] [place] [address] Dr. Ibis Jimenez EO # 0.0 103/ul Normal 0.0-0.7 [facility] Comment on above: Performed By: #### A CET, SALYC #### [facility] [address] [place] [address] Dr. Ibis Jimenez Eosinophils/100 WBC (Bld) 0.4 % Critically low 0.9-7.0 [facility] Comment on above: Performed By: #### A CET, SALYC #### [facility] [address] [place] [address] Dr. Ibis Jimenez Erythrocyte distribution width (RBC) [Ratio] 13.2 % Normal 11.0-15.0 [facility] Comment on above: Performed By: #### A CET, SALYC #### [facility] [address] [place] [address] Dr. Ibis Jimenez Hematocrit (Bld) [Volume fraction] 39.7 % Normal 36.0-48.0 [facility] Comment on above: Performed By: #### A CET, SALYC #### [facility] [address] [place] [address] Dr. Ibis Jimenez Hemoglobin (Bld) [Mass/Vol] 13.4 g/dL Normal 12.0-16.0 [facility] Comment on above: Performed By: #### A CET, SALYC #### [facility] [address] [place] [address] Dr. Ibis Jimenez IG # 0.06 10e3/ul Critically high 0.00-0.03 [facility] Comment on above: Performed By: #### A CET, SALYC #### [facility] [address] [place] [address] Dr. Ibis Jimenez IG % 0.5 % Normal 0.0-0.5 [facility] Comment on above: Performed By: #### A CET, SALYC #### [facility] [address] [place] [address] Dr. Ibis Jimenez LYMPH # 2.6 103/ul Normal 1.2-3.8 [facility] Comment on above: Performed By: #### A CET, SALYC #### [facility] [address] [place] [address] Dr. Ibis Jimenez Lymphocytes/100 WBC (Bld) 23.8 % Normal 20.5-60.0 [facility] Comment on above: Performed By: #### A CET, SALYC #### [facility] [address] [place] [address] Dr. Ibis Jimenez MANUAL DIFF REQ NO Normal [facility] Comment on above: Performed By: #### A CET, SALYC #### [facility] [address] [place] [address] Dr. Ibis Jimenez MCH (RBC) [Entitic mass] 28.8 pg Normal 26.7-34.0 [facility] Comment on above: Performed By: #### A CET, SALYC #### [facility] [address] [place] [address] Dr. Ibis Jimenez MCHC (RBC) [Mass/Vol] 33.8 g/dL Normal 29.9-35.2 [facility] Comment on above: Performed By: #### A CET, SALYC #### [facility] [address] [place] [address] Dr. Ibis Jimenez MCV (RBC) [Entitic vol] 85.2 fL Normal 81.0-99.0 [facility] Comment on above: Performed By: #### A CET, SALYC #### [facility] [address] [place] [address] Dr. Ibis Jimenez MONO # 0.8 103/ul Normal 0.3-0.8 [facility] Comment on above: Performed By: #### A CET, SALYC #### [facility] [address] [place] [address] Dr. Ibis Jimenez Monocytes/100 WBC (Bld) 7.7 % Normal 1.7-12.0 [facility] Comment on above: Performed By: #### A CET, SALYC #### [facility] [address] [place] [address] Dr. Ibis Jimenez NEUT # 7.4 103/ul Critically high 1.4-6.5 [facility] Comment on above: Performed By: #### A CET, SALYC #### [facility] [address] [place] [address] Dr. Ibis Jimenez Neutrophils/100 WBC (Bld) 67.4 % Normal 43.0-75.0 [facility] Comment on above: Performed By: #### A CET, SALYC #### [facility] [address] [place] [address] Dr. Ibis Jimenez Platelet mean volume (Bld) [Entitic vol] 9.8 fL Normal 9.5-13.5 [facility] Comment on above: Performed By: #### A CET, SALYC #### [facility] [address] [place] [address] Dr. Ibis Jimenez PLT 261 103/ul Normal 150-450 [facility] Comment on above: Performed By: #### A CET, SALYC #### [facility] [address] [place] [address] Dr. Ibis Jimenez RBC 4.66 106/ul Normal 4.20-5.40 [facility] Comment on above: Performed By: #### A CET, SALYC #### [facility] [address] [place] [address] Dr. Ibis Jimenez WBC 10.9 103/ul Normal 4.0-11.0 [facility] Comment on above: Performed By: #### A RYAN, SALYC #### [facility] [address] [place] [address] Dr. Ibis Jimenez PROF CHEM 8 (BAS METB)on Anion gap [Moles/Vol] 14.1 mmol/L Normal [facility] Comment on above: Performed By: #### B MP #### [facility] [address] [place] [address] Dr. Ibis Jimenez Calcium [Mass/Vol] 8.5 mg/dL Normal 8.5-10.1 [facility] Comment on above: Performed By: #### B MP #### [facility] [address] [place] [address] Dr. Ibis Jimenez Chloride [Moles/Vol] 103 mmol/L Normal 98-107 [facility] Comment on above: Performed By: #### B MP #### [facility] [address] [place] [address] Dr. Ibis Jimenez CO2 [Moles/Vol] 22.5 mmol/L Normal 21.0-32.0 [facility] Comment on above: Performed By: #### B MP #### [facility] [address] [place] [address] Dr. Ibis Jimenez Creatinine [Mass/Vol] 0.64 mg/dL Normal 0.55-1.02 [facility] Comment on above: Performed By: #### B MP #### [facility] [address] [place] [address] Dr. Ibis Jimenez EGFR-AF [place] >60 Normal >=60 [facility] Comment on above: Performed By: #### B MP #### [facility] [address] [address] [address] Ibis Jimenez EGFR-NON AF [place] >60 Normal >=60 [facility] Comment on above: Performed By: #### B MP #### [facility] [address] [place] [address] Dr. Ibis Jimenez Glucose [Mass/Vol] 141 mg/dL Critically high 74-106 [facility] Comment on above: Performed By: #### B MP #### [facility] [address] [place] [address] Dr. Ibis Jimenez Potassium [Moles/Vol] 3.6 mmol/L Normal 3.5-5.1 [facility] Comment on above: Performed By: #### B MP #### [facility] [address] [place] [address] Dr. Ibis Jimenez Sodium [Moles/Vol] 136 mmol/L Normal 136-145 [facility] Comment on above: Performed By: #### B MP #### [facility] [address] [place] [address] Dr. Ibis Jimenez Urea nitrogen [Mass/Vol] 16.0 mg/dL Normal 7.0-18.0 [facility] Comment on above: Performed By: #### B MP #### [facility] [address] [place] [address] Dr. Ibis Jimenez Urea nitrogen/Creatinine [Mass ratio] 25.0 mg/mg Normal [facility] Comment on above: Performed By: #### B MP #### [facility] [address] [place] [address] Dr. Ibis Jimenez CBC AUTO DIFFon 11-04-2021 BASO # 0.0 103/ul Normal 0.0-0.1 [facility] Comment on above: Performed By: #### A CET, SALYC #### [facility] [address] [place] [address] Dr. Ibis Jimenez Basophils/100 WBC (Bld) 0.4 % Normal 0.2-2.0 [facility] Comment on above: Performed By: #### A CET, SALYC #### [facility] [address] [place] [address] Dr. Ibis Jimenez EO # 0.2 103/ul Normal 0.0-0.7 [facility] Comment on above: Performed By: #### A CET, SALYC #### [facility] [address] [place] [address] Dr. Ibis Jimenez Eosinophils/100 WBC (Bld) 4.1 % Normal 0.9-7.0 [facility] Comment on above: Performed By: #### A CET, SALYC #### [facility] [address] [place] [address] Dr. Ibis Jimenez Erythrocyte distribution width (RBC) [Ratio] 13.2 % Normal 11.0-15.0 [facility] Comment on above: Performed By: #### A CET, SALYC #### [facility] [address] [place] [address] Dr. Ibis Jimenez Hematocrit (Bld) [Volume fraction] 34.3 % Critically low 36.0-48.0 [facility] Comment on above: Performed By: #### A CET, SALYC #### [facility] [address] [place] [address] Dr. Ibis Jimenez Hemoglobin (Bld) [Mass/Vol] 11.5 g/dL Critically low 12.0-16.0 [facility] Comment on above: Performed By: #### A CET, SALYC #### [facility] [address] [place] [address] Dr. Ibis Jimenez IG # 0.01 10e3/ul Normal 0.00-0.03 [facility] Comment on above: Performed By: #### A CET, SALYC #### [facility] [address] [address] [address] Ibis Jimenez IG % 0.2 % Normal 0.0-0.5 [facility] Comment on above: Performed By: #### A CET, SALYC #### [facility] [address] [address] [address] Ibis Jimenez LYMPH # 1.5 103/ul Normal 1.2-3.8 [facility] Comment on above: Performed By: #### A CET, SALYC #### [facility] [address] [place] [address] Dr. Ibis Jimenez Lymphocytes/100 WBC (Bld) 26.4 % Normal 20.5-60.0 [facility] Comment on above: Performed By: #### A CET, SALYC #### [facility] [address] [place] [address] Dr. Ibis Jimenez MANUAL DIFF REQ NO Normal [facility] Comment on above: Performed By: #### A CET, SALYC #### [facility] [address] [place] [address] Dr. Ibis Jimenez MCH (RBC) [Entitic mass] 28.8 pg Normal 26.7-34.0 [facility] Comment on above: Performed By: #### A CET, SALYC #### [facility] [address] [place] [address] Dr. Ibis Jimenez MCHC (RBC) [Mass/Vol] 33.5 g/dL Normal 29.9-35.2 [facility] Comment on above: Performed By: #### A CET, SALYC #### [facility] [address] [place] [address] Dr. Ibis Jimenez MCV (RBC) [Entitic vol] 86.0 fL Normal 81.0-99.0 [facility] Comment on above: Performed By: #### A CET, SALYC #### [facility] [address] [place] [address] Dr. Ibis Jimenez MONO # 0.5 103/ul Normal 0.3-0.8 [facility] Comment on above: Performed By: #### A CET, SALYC #### [facility] [address] [address] [address] Ibis Jimenez Monocytes/100 WBC (Bld) 8.2 % Normal 1.7-12.0 [facility] Comment on above: Performed By: #### A CET, SALYC #### [facility] [address] [place] [address] Dr. Ibis Jimenez NEUT # 3.4 103/ul Normal 1.4-6.5 [facility] Comment on above: Performed By: #### A CET, SALYC #### [facility] [address] [place] [address] Dr. Ibis Jimenez Neutrophils/100 WBC (Bld) 60.7 % Normal 43.0-75.0 [facility] Comment on above: Performed By: #### A CET, SALYC #### [facility] [address] [place] [address] Dr. Ibis Jimenez Platelet mean volume (Bld) [Entitic vol] 9.9 fL Normal 9.5-13.5 [facility] Comment on above: Performed By: #### A CET, SALYC #### [facility] [address] [place] [address] Dr. Ibis Jimenez PLT 222 103/ul Normal 150-450 [facility] Comment on above: Performed By: #### A CET, SALYC #### [facility] [facility] [address] [place] [address] Dr. Ibis Jimenez RBC 3.99 106/ul Critically low 4.20-5.40 [facility] Comment on above: Performed By: #### A CET, SALYC #### [facility] [address] [place] [address] Dr. Ibis Jimenez WBC 5.6 103/ul Normal 4.0-11.0 [facility] Comment on above: Performed By: #### A CET, SALYC #### [facility] [address] [place] [address] Dr. Ibis Jimenez PROF CHEM 8 (BAS METB)on Anion gap [Moles/Vol] 10.5 mmol/L Normal Th e [facility] Comment on above: Performed By: #### B MP #### [facility] [address] [address] [address] Ibis Jimenez Calcium [Mass/Vol] 8.8 mg/dL Normal 8.5-10.1 [facility] Comment on above: Performed By: #### B MP #### [facility] [address] [address] [address] Ibis Jimenez Chloride [Moles/Vol] 105 mmol/L Normal 98-107 [facility] Comment on above: Performed By: #### B MP #### [facility] [address] [place] [address] Dr. Ibis Jimenez CO2 [Moles/Vol] 24.9 mmol/L Normal 21.0-32.0 [facility] Comment on above: Performed By: #### B MP #### [facility] [address] [place] [address] Dr. Ibis Jimenez Creatinine [Mass/Vol] 0.71 mg/dL Normal 0.55-1.02 [facility] Comment on above: Performed By: #### B MP #### [facility] [address] [place] [address] Dr. Ibis Jimenez EGFR-AF [place]AST [place] >60 Normal >=60 [facility] Comment on above: Performed By: #### B MP #### [facility] [address] [place] [address] Dr. Ibis Jimenez EGFR-NON AF [place] >60 Normal >=60 [facility] Comment on above: Performed By: #### B MP #### [facility] [address] [place] [address] Dr. Ibis Jimenez Glucose [Mass/Vol] 103 mg/dL Normal 74-106 [facility] Comment on above: Performed By: #### B MP #### [facility] [address] [place] [address] Dr. Ibis Jimenez Potassium [Moles/Vol] 3.4 mmol/L Critically low 3.5-5.1 [facility] Comment on above: Performed By: #### B MP #### [facility] [address] [place], [place] [address] Dr. Ibis Jimenez Sodium [Moles/Vol] 137 mmol/L Normal 136-145 [facility] Comment on above: Performed By: #### B MP #### [facility] [address] [place], [place] [address] Dr. Ibis Jimenez Urea nitrogen [Mass/Vol] 17.0 mg/dL Normal 7.0-18.0 [facility] Comment on above: Performed By: #### B MP #### [facility] [address] [place], [place] [address] Dr. Ibis Jimenez Urea nitrogen/Creatinine [Mass ratio] 23.9 mg/mg Normal [facility] Comment on above: Performed By: #### B MP #### [facility] [address] [place] [address] Dr. Ibis Jimenez Basic Metab w/rfx MGon 10-20 (cont.) Normal [facility] Comment on above: Result Comment: Aver age GFR for 20-29 years old: 116 mL/min/1.73sq m Chronic Kidney Disease: <60 mL/min/1.73sq m Kidney failure: <15 mL/min/1.73sq m eGFR calculated using average adult body mass. Additional eGFR calculator available at: http://www.[employer]/multiple_crcl_2012.htm Performed By: #### B MPX #### [facility] [address] [place], [place] [id number] [employer]: Tavon Nicole MD Anion gap [Moles/Vol] 10 mmol/L Normal 9-17 [facility] Comment on above: Performed By: #### B MPX #### [facility] [address] [place] [address] [employer]ic: Tavon Nicole MD Calcium [Mass/Vol] 7.8 mg/dL Low 8.6-10.4 [facility] Comment on above: Performed By: #### B MPX #### [address] [address] [employer]: Tavon Nicole MD Chloride [Moles/Vol] 109 mmol/L High 98-107 [facility] Comment on above: Performed By: #### B MPX #### [address] [address] [employer]: Tavon Nicole MD CO2 [Moles/Vol] 20 mmol/L Normal 20-31 [facility] Comment on above: Performed By: #### B MPX #### [address] [address] [employer]ic: Tavon Nicole MD Creatinine [Mass/Vol] 0.45 mg/dL Low 0.50-0.90 [facility] Comment on above: Performed By: #### B MPX #### [address] [address] [employer]: Tavon Nicole MD GFR, Amer >60 Normal >60 [facility] Comment on above: Performed By: #### B MPX #### [address] [address] [employer]: Tavon Nicole MD GFR,non Amer >60 Normal >60 [facility] Comment on above: Performed By: #### B MPX #### [address] [address] [employer]: Tavon Nicole MD Glucose [Mass/Vol] 84 mg/dL Normal 70-99 [facility] Comment on above: Performed By: #### B MPX #### [address] [address] [employer]: Tavon Nicole MD Potassium [Moles/Vol] 4.1 mmol/L Normal 3.7-5.3 [facility] Comment on above: Result Comment: SPEC IMEN SLIGHTLY HEMOLYZED, RESULTS MAY BE ADVERSELY AFFECTED. Performed By: #### B MPX #### [facility] [address] [place], [place] [id number] [employer]: Tavon Nicole MD Sodium [Moles/Vol] 139 mmol/L Normal 135-144 [facility] Comment on above: Performed By: #### B MPX #### [facility] [address] [place], [place] [id number] [employer]ic: Tavon Nicole MD Urea nitrogen [Mass/Vol] 8 mg/dL Normal 6-20 [facility] Comment on above: Performed By: #### B MPX #### [facility] [address] [place], [place] [id number] [employer]ic: Tavon Nicole MD Basic Metabolic Panel w/ Ref rossi to MGon 10-20-2021 Anion gap [Moles/Vol] 10 mmol/L 9 - 17 mmol/L [facility] Calcium [Mass/Vol] 7.8 mg/dL Low 8.6 - 10. 4 mg/dL [facility] Chloride [Moles/Vol] 109 mmol/L High 98 - 10 7 mmol/L [facility] CO2 [Moles/Vol] 20 mmol/L 20 - 31 mmol/L [facility] Creatinine [Mass/Vol] 0.45 mg/dL Low 0.5 - 0.9 mg/dL [facility] GFR >60 60 - PI NF mL/min [facility] GFR Non- >60 60 - PINF mL/min [facility] GFR/1.73 sq M.predicted MDRD (S/P/Bld) [Vol rate/Area] [facility] Comment on above: Average GFR for 20-2 9 years old: 116 mL/min/1.73sq m Chronic Kidney Disease: <60 mL/min/1.73sq m Kidney failure: <15 mL/min/1.73sq m eGFR calculated using average adult body mass. Additional eGFR calculator available at: http://www.globalrph.com/multiple_crcl_2012.htm Glucose [Mass/Vol] 84 mg/dL 70 - 99 mg/dL [facility] Interpretation and review of laboratory results Abnormal [facility] Potassium [Moles/Vol] 4.1 mmol/L 3.7 - 5.3 mmol/L [facility] Comment on above: SPECIMEN SLIGHTLY HE MOLYZED, RESULTS MAY BE ADVERSELY AFFECTED. Sodium [Moles/Vol] 139 mmol/L 135 - 144 mmol/L [facility] Urea nitrogen (BldV) [Mass/Vol] 8 mg/dL 6 - 20 mg/dL [facility] CBC with Auto Differentialon 10-20-2021 Absolute Eos # 0.15 [facility] Absolute Immature Granulocyte [facility] Absolute Lymph # 1.48 [facility] Absolute Banks # 0.28 [facility] Basophils (Bld) [#/Vol] 0.03 10*3/uL [facility] Basophils/100 WBC (Bld) 1 % 0 - 2 % B ON [facility] Eosinophils/100 WBC (Bld) 3 % 1 - 4 % [facility] Hematocrit (Bld) [Volume fraction] 35.5 % Low 36.3 - 47.1 % [facility] Hemoglobin (Bld) [Mass/Vol] 11.3 g/dL Low 11.9 - 15.1 g/dL [facility] Immature granulocytes/100 WBC (Bld) 0 % 0 [facility] Interpretation and review of laboratory results Abnormal [facility] Lymphocytes/100 WBC (Bld) 34 % 24 - 43 % [facility] MCH (RBC) [Entitic mass] 27.9 pg 25.2 - 33.5 pg [facility] MCHC (RBC) [Mass/Vol] 31.8 g/dL 28.4 - 34.8 g/dL [facility] MCV (RBC) [Entitic vol] 87.7 fL 82.6 - 102.9 fL [facility] Monocytes/100 WBC (Bld) 6 % 3 - 12 % B ON [facility] NRBC Automated 0.0 0.0 per 100 WBC [facility] Platelet distribution width (Bld) [Ratio] 12.9 % 11.8 - 14.4 % [facility] Platelets (Bld) [#/Vol] See Reflexed IPF Result [facility] RBC (Bld) [#/Vol] 4.05 10*6/uL 3.95 - 5.1 1 m/uL [facility] Segmented neutrophils/100 WBC (Bld) 55 % 36 - 65 % [facility] Segs Absolute 2.42 [facility] WBC (Bld) [#/Vol] 4.4 10*3/uL [facility] CBC with Diffon 10-20-2021 Abs. Basophil 0.03 k/uL Normal 0.00-0.20 [facility] Comment on above: Performed By: #### C DP, IPF #### [place] [address] [employer]: Tavon Nicole MD Abs.Imm.Granulocyte <0.03 Normal 0.00-0.30 [facility] Comment on above: Performed By: #### C DP, IPF #### [place] [address] [employer]: Tavon Nicole MD Abs.Neutrophil (Seg) 2.42 k/uL Normal 1.50-8.10 [facility] Comment on above: Performed By: #### C DP, IPF #### [place] [address] [employer]: Tavon Nicole MD Basophils/100 WBC (Bld) 1 % Normal 0-2 [facility] Comment on above: Performed By: #### C DP, IPF #### [place] [address] [employer]: Tavon Nicole MD Eosinophils (Bld) [#/Vol] 0.15 10*3/uL Normal 0.00-0.44 [facility] Comment on above: Performed By: #### C DP, IPF #### [address] [address] [employer]: Tavon Nicole MD Eosinophils/100 WBC (Bld) 3 % Normal 1-4 [facility] Comment on above: Performed By: #### C DP, IPF #### [address] [address] [employer]: Tavon Nicole MD Immature granulocytes/100 WBC (Bld) 0 % Normal 0 [facility] Comment on above: Performed By: #### C DP, IPF #### [address] [address] [employer]: Tavon Nicole MD Lymphocytes (Bld) [#/Vol] 1.48 10*3/uL Normal 1.10-3.70 [facility] Comment on above: Performed By: #### C DP, IPF #### [address] [address] [employer]: Tavon Nicole MD Lymphocytes/100 WBC (Bld) 34 % Normal 24-43 [facility] Comment on above: Performed By: #### C DP, IPF #### [address] [address] [employer]: Tavon Nicole MD Monocytes (Bld) [#/Vol] 0.28 10*3/uL Normal 0.10-1.20 [facility] Comment on above: Performed By: #### C DP, IPF #### [address] [address] [employer]: Tavon Nicole MD Monocytes/100 WBC (Bld) 6 % Normal 3-12 [facility] Comment on above: Performed By: #### C DP, IPF #### [address] [address] [employer]: Tavon Nicole MD Neutrophil (Seg) 55 % Normal 36-65 [facility] Comment on above: Performed By: #### C DP, IPF #### [address] [address] [employer]: Tavon Nicole MD Erythrocyte distribution width (RBC) [Ratio] 12.9 % Normal 11.8-14.4 [facility] Comment on above: Performed By: #### C DP, IPF #### [address] [address] [employer]: Tavon Nicole MD Hematocrit (Bld) [Volume fraction] 35.5 % Low 36.3-47.1 [facility] Comment on above: Performed By: #### C DP, IPF #### [address] [address] [employer]: Tavon Nicole MD Hemoglobin (Bld) [Mass/Vol] 11.3 g/dL Low 11.9-15.1 [facility] Comment on above: Performed By: #### C DP, IPF #### [address] [address] [employer]: Tavon Nicole MD MCH (RBC) [Entitic mass] 27.9 pg Normal 25.2-33.5 [facility] Comment on above: Performed By: #### C DP, IPF #### [address] [address] [employer]ic: Tavon Nicole MD MCHC (RBC) [Mass/Vol] 31.8 g/dL Normal 28.4-34.8 [facility] Comment on above: Performed By: #### C DP, IPF #### [address] [address] [employer]ic: Tavon Nicole MD MCV (RBC) [Entitic vol] 87.7 fL Normal 82.6-102.9 [facility] Comment on above: Performed By: #### C DP, IPF #### [address] [address] [employer]ic: Tavon Nicole MD NRBC Automated 0.0 per 100 WBC Normal 0.0 [facility] Comment on above: Performed By: #### C DP, IPF #### [address] [address] [employer]: Tavon Nicole MD Platelet Count See Reflexed IPF Result Normal 138-453 [facility] Comment on above: Performed By: #### C DP, IPF #### [address] [address] [employer]ic: Tavon Nicole MD RBC (Bld) [#/Vol] 4.05 10*6/uL Normal 3.95-5.11 [facility] Comment on above: Performed By: #### C DP, IPF #### [address] [address] [employer]: Tavon Nicole MD WBC (Bld) [#/Vol] 4.4 10*3/uL Normal 3.5-11.3 [facility] Comment on above: Performed By: #### C DP, IPF #### [address] [address] [employer]ic: Tavon Nicole MD EEG video monitoringon 10-20 Raiza Land MD 10/20/2021 12:11 PM Referring physician: Chris Blanchard APRN Date:10/20/2021 Start Time:10/19/2021 @1258 End Time: 10/20/2021 @ 1200 Indication Patient with recurrent events Introduction This continuous video-EEG was acquired using a Banjo workstation at 256 samples/s. Electrodes were placed [...] Board Certified. Neurology Board Certified. Electronically Signed [facility] Work Phone: EEG video monitoringOrdered By: Raiza Land on 10-20-2021 [facility] Work Phone: Immature Platelet Fractionon 10-20-2021 Platelet, Fluorescence Platelet clumps present, count appears adequate. [facility] PLT, Immature Fract.on 10-20 Platelet, Fluoresc. Platelet clumps present, count appears adequate. Normal 138-453 [facility] Comment on above: Performed By: #### C DP, IPF #### [facility] [address] [place] [address] [employer]ic: Tavon Nicole MD PROLACTINon 10-20-2021 Prolactin 41.7 ng/mL Critically high 4.8-23.3 [facility] Comment on above: Performed By: #### C VDTBH #### [facility] [address] [place], [place] [address] Dr. Ibis Jimenez CBCon 10-19-2021 Erythrocyte distribution width (RBC) [Ratio] 12.9 % Normal 11.8-14.4 [facility] Comment on above: Performed By: #### T ROPI, LACTIC, CMPX, CBC #### [address] [address] [employer]: Tavon Nicole MD Hematocrit (Bld) [Volume fraction] 31.5 % Low 36.3-47.1 [facility] Comment on above: Performed By: #### T ROPI, LACTIC, CMPX, CBC #### [address] [address] [employer]: Tavon Nicole MD Hemoglobin (Bld) [Mass/Vol] 10.8 g/dL Low 11.9-15.1 [facility] Comment on above: Performed By: #### T ROPI, LACTIC, CMPX, CBC #### [address] [address] [employer]: Tavon Nicole MD MCH (RBC) [Entitic mass] 29.1 pg Normal 25.2-33.5 [facility] Comment on above: Performed By: #### T ROPI, LACTIC, CMPX, CBC #### [facility] [address] [place] [address] [employer]ic: Tavon Nicole MD MCHC (RBC) [Mass/Vol] 34.3 g/dL Normal 28.4-34.8 [facility] Comment on above: Performed By: #### T ROPI, LACTIC, CMPX, CBC #### [facility] [address] [place] [address] [employer]ic: Tavon Nicole MD MCV (RBC) [Entitic vol] 84.9 fL Normal 82.6-102.9 [facility] Comment on above: Performed By: #### T ROPI, LACTIC, CMPX, CBC #### [address] [address] [employer]ic: Tavon Nicole MD NRBC Automated 0.0 per 100 WBC Normal 0.0 [facility] Comment on above: Performed By: #### T ROPI, LACTIC, CMPX, CBC #### [address] [address] [employer]ic: Tavon Nicole MD Platelet mean volume (Bld) [Entitic vol] 9.8 fL Normal 8.1-13.5 [facility] Comment on above: Performed By: #### T ROPI, LACTIC, CMPX, CBC #### [address] [address] [employer]: Tavon Nicole MD Platelets (Bld) [#/Vol] 281 10*3/uL Normal 138-453 [facility] Comment on above: Performed By: #### T ROPI, LACTIC, CMPX, CBC #### [address] [address] [employer]: Tavon Nicole MD RBC (Bld) [#/Vol] 3.71 10*6/uL Low 3.95-5.11 [facility] Comment on above: Performed By: #### T ROPI, LACTIC, CMPX, CBC #### [address] [address] [employer]: Tavon Nicole MD WBC (Bld) [#/Vol] 5.0 10*3/uL Normal 3.5-11.3 [facility] Comment on above: Performed By: #### T ROPI, LACTIC, CMPX, CBC #### [address] [address] [employer]: Tavon Nicole MD Hematocrit (Bld) [Volume fraction] 31.5 % Low 36.3 - 47.1 % [facility] Hemoglobin (Bld) [Mass/Vol] 10.8 g/dL Low 11.9 - 15.1 g/dL [facility] Interpretation and review of laboratory results Abnormal [facility] MCH (RBC) [Entitic mass] 29.1 pg 25.2 - 33.5 pg [facility] MCHC (RBC) [Mass/Vol] 34.3 g/dL 28.4 - 34.8 g/dL [facility] MCV (RBC) [Entitic vol] 84.9 fL 82.6 - 102.9 fL [facility] NRBC Automated 0.0 0.0 per 100 WBC [facility] Platelet distribution width (Bld) [Ratio] 12.9 % 11.8 - 14.4 % [facility] Platelet mean volume (Bld) [Entitic vol] 9.8 fL 8.1 - 13.5 fL [facility] Platelets (Bld) [#/Vol] 281 10*3/uL [facility] RBC (Bld) [#/Vol] 3.71 10*6/uL Low 3.95 - 5.1 1 m/uL [facility] WBC (Bld) [#/Vol] 5.0 10*3/uL [facility] CBC AUTO DIFFon 10-19-2021 EO # 0.2 103/ul Normal 0.0-0.7 [facility] Comment on above: Performed By: #### A MM #### [facility] [address] [place] [address] Dr. Ibis Jimenez Eosinophils/100 WBC (Bld) 3.9 % Normal 0.9-7.0 [facility] Comment on above: Performed By: #### A MM #### [facility] [address] [address] [address] Ibis Jimenez Erythrocyte distribution width (RBC) [Ratio] 13.1 % Normal 11.0-15.0 [facility] Comment on above: Performed By: #### A MM #### [facility] [address] [place] [address] Dr. Ibis Jimenez Hematocrit (Bld) [Volume fraction] 33.4 % Critically low 36.0-48.0 [facility] Comment on above: Performed By: #### A MM #### [facility] [address] [address] [address] Ibis Jimenez Hemoglobin (Bld) [Mass/Vol] 11.1 g/dL Critically low 12.0-16.0 [facility] Comment on above: Performed By: #### A MM #### [facility] [address] [place] [address] Dr. Ibis Jimenez LYMPH # 1.2 103/ul Normal 1.2-3.8 [facility] Comment on above: Performed By: #### A MM #### [facility] [address] [place] [address] Dr. Ibis Jimenez Lymphocytes/100 WBC (Bld) 25.9 % Normal 20.5-60.0 [facility] Comment on above: Performed By: #### A MM #### [facility] [address] [place] [address] Dr. Ibis Jimenez MCHC (RBC) [Mass/Vol] 33.2 g/dL Normal 29.9-35.2 [facility] Comment on above: Performed By: #### A MM #### [facility] [address] [place] [address] Dr. Ibis Jimenze MCV (RBC) [Entitic vol] 85.9 fL Normal 81.0-99.0 [facility] Comment on above: Performed By: #### A MM #### [facility] [address] [place] [address] Dr. Ibis Jimenez Monocytes/100 WBC (Bld) 7.7 % Normal 1.7-12.0 [facility] Comment on above: Performed By: #### A MM #### [facility] [address] [place] [address] Dr. Ibis Jimenez NEUT # 2.9 103/ul Normal 1.4-6.5 [facility] Comment on above: Performed By: #### A MM #### [facility] [address] [place] [address] Dr. Ibis Jimenez Neutrophils/100 WBC (Bld) 61.5 % Normal 43.0-75.0 [facility] Comment on above: Performed By: #### A MM #### [facility] [address] [place] [address] Dr. Ibis Jimenez PLT 264 103/ul Normal 150-450 [facility] Comment on above: Performed By: #### A MM #### [facility] [address] [place] [address] Dr. Ibis Jimenez RBC 3.89 106/ul Critically low 4.20-5.40 [facility] Comment on above: Performed By: #### A MM #### [facility] [address] [place] [address] Dr. Ibis Jimenez WBC 4.7 103/ul Normal 4.0-11.0 [facility] Comment on above: Performed By: #### A MM #### [facility] [address] [place] [address] Dr. Ibis Jimeenz BASO # 0.0 103/ul Normal 0.0-0.1 [facility] Comment on above: Performed By: #### A MM #### [facility] [address] [place] [address] Dr. Ibis Jimenez Performed By: #### C VDTBH #### [facility] [address] [place] [address] Dr. Ibis Jimenez Basophils/100 WBC (Bld) 0.6 % Normal 0.2-2.0 [facility] Comment on above: Performed By: #### A MM #### [facility] [address] [place] [address] Dr. Ibis Jimenez Performed By: #### C VDTBH #### [facility] [address] [place] [address] Dr. Ibis Jimenez EO # 0.3 103/ul Normal 0.0-0.7 [facility] Comment on above: Performed By: #### C VDTBH #### [facility] [address] [place] [address] Dr. Ibis Jimenez Eosinophils/100 WBC (Bld) 5.0 % Normal 0.9-7.0 [facility] Comment on above: Performed By: #### C VDTBH #### [facility] [address] [place] [address] Dr. Ibis Jimenez Erythrocyte distribution width (RBC) [Ratio] 12.8 % Normal 11.0-15.0 [facility] Comment on above: Performed By: #### C VDTBH #### [facility] [address] [place] [address] Dr. Ibis Jimenez Hematocrit (Bld) [Volume fraction] 38.0 % Normal 36.0-48.0 [facility] Comment on above: Performed By: #### C VDTBH #### [facility] [address] [place] [address] Dr. Ibis Jimenez Hemoglobin (Bld) [Mass/Vol] 12.7 g/dL Normal 12.0-16.0 [facility] Comment on above: Performed By: #### C VDTBH #### [facility] [address] [place] [address] Dr. Ibis Jimenez IG # 0.02 10e3/ul Normal 0.00-0.03 [facility] Comment on above: Performed By: #### A MM #### [facility] [address] [place] [address] Dr. Ibis Jimenez Performed By: #### C VDTBH #### [facility] [address] [place] [address] Dr. Ibis Jimenez IG % 0.4 % Normal 0.0-0.5 [facility] Comment on above: Performed By: #### A MM #### [facility] [address] [place] [address] Dr. Ibis Jimenez Performed By: #### C VDTBH #### [facility] [address] [place] [address] Dr. Ibis Jimenez LYMPH # 1.7 103/ul Normal 1.2-3.8 [facility] Comment on above: Performed By: #### C VDTBH #### [facility] [address] [place] [address] Dr. Ibis Jimenez Lymphocytes/100 WBC (Bld) 30.7 % Normal 20.5-60.0 [facility] Comment on above: Performed By: #### C VDTBH #### [facility] [address] [place] [address] Dr. Ibis Jimenez MANUAL DIFF REQ NO Normal [facility] Comment on above: Performed By: #### A MM #### [facility] [address] [place] [address] Dr. Ibis Jimenez Performed By: #### C VDTBH #### [facility] [facility] [address] [place] [address] Dr. Ibis Jimenez MCH (RBC) [Entitic mass] 28.5 pg Normal 26.7-34.0 [facility] Comment on above: Performed By: #### A MM #### [facility] [address] [place] [address] Dr. Ibis Jimenez Performed By: #### C VDTBH #### [facility] [address] [place] [address] Dr. Ibis Jimenez MCHC (RBC) [Mass/Vol] 33.4 g/dL Normal 29.9-35.2 [facility] Comment on above: Performed By: #### C VDTBH #### [facility] [address] [place] [address] Dr. Ibis Jimenez MCV (RBC) [Entitic vol] 85.2 fL Normal 81.0-99.0 [facility] Comment on above: Performed By: #### C VDTBH #### [facility] [address] [place] [address] Dr. Ibis Jimenez MONO # 0.4 103/ul Normal 0.3-0.8 [facility] Comment on above: Performed By: #### A MM #### [facility] [address] [place] [address] Dr. Ibis Jimenez Performed By: #### C VDTBH #### [facility] [address] [place] [address] Dr. Ibis Jimenez Monocytes/100 WBC (Bld) 8.1 % Normal 1.7-12.0 [facility] Comment on above: Performed By: #### C VDTBH #### [facility] [address] [place] [address] Dr. Ibis Jimenez NEUT # 3.0 103/ul Normal 1.4-6.5 [facility] Comment on above: Performed By: #### C VDTBH #### [facility] [address] [place] [address] Dr. Ibis Jimenez Neutrophils/100 WBC (Bld) 55.2 % Normal 43.0-75.0 [facility] Comment on above: Performed By: #### C VDTBH #### [facility] [address] [place] [address] Dr. Ibis Jimenez Platelet mean volume (Bld) [Entitic vol] 9.5 fL Normal 9.5-13.5 [facility] Comment on above: Performed By: #### A MM #### [facility] [address] [place] [address] Dr. Ibis Jimenez Performed By: #### C VDTBH #### [facility] [address] [place] [address] Dr. Ibis Jimenez PLT 343 103/ul Normal 150-450 [facility] Comment on above: Performed By: #### C VDTBH #### [facility] [address] [place] [address] Dr. Ibis Jimenez RBC 4.46 106/ul Normal 4.20-5.40 [facility] Comment on above: Performed By: #### C VDTBH #### [facility] [address] [place] [address] Dr. Ibis Jimenez WBC 5.4 103/ul Normal 4.0-11.0 [facility] Comment on above: Performed By: #### C VDTBH #### [facility] [address] [place] [address] HEAD WO CONon [...] by: LOPEZ REYNOLDS Date: 2021-10-19 07:31 Normal [facility] Comp Metabolic Pr/rfx MGon 0 10-19-2021 (cont.) Normal [facility] Comment on above: Result Comment: Aver age GFR for 20-29 years old: 116 mL/min/1.73sq m Chronic Kidney Disease: <60 mL/min/1.73sq m Kidney failure: <15 mL/min/1.73sq m eGFR calculated using average adult body mass. Additional eGFR calculator available at: http://www.Modac[employer].RE2/multiple_crcl_2012.htm Performed By: #### T ROPI, LACTIC, CMPX, CBC #### [facility] [address] [place] [address] [phone] [employer]: Tavon Nicole MD Albumin [Mass/Vol] 3.5 g/dL Normal 3.5-5.2 [facility] Comment on above: Performed By: #### T ROPI, LACTIC, CMPX, CBC #### [facility] [address] [place] [address] [phone] [employer]ic: Tavon Nicole MD Albumin/Glob Ratio 1.4 Normal 1.0-2.5 [facility] Comment on above: Performed By: #### T ROPI, LACTIC, CMPX, CBC #### [facility] [address] [place] [address] [phone] [employer]ic: Tavon Nicole MD Alkaline Phos 69 U/L Normal 35-104 [facility] Comment on above: Performed By: #### T ROPI, LACTIC, CMPX, CBC #### [facility] [address] [place] [address] [phone] [employer]ic: Tavon Nicole MD ALT [Catalytic activity/Vol] 15 U/L Normal 5-33 [facility] Comment on above: Performed By: #### T ROPI, LACTIC, CMPX, CBC #### [facility] [address] [place] [address] [phone] [employer]ic: Tavon Nicole MD Anion gap [Moles/Vol] 13 mmol/L Normal 9-17 [facility] Comment on above: Performed By: #### T ROPI, LACTIC, CMPX, CBC #### [facility] [address] [place] [address] 53153 [employer]ic: Tavon Nicole MD AST [Catalytic activity/Vol] 12 U/L Normal <32 [facility] Comment on above: Performed By: #### T ROPI, LACTIC, CMPX, CBC #### [facility] [address] [place] [address] [phone] [employer]ic: Tavon Nicole MD Bilirubin [Mass/Vol] 0.24 mg/dL Low 0.3-1.2 [facility] Comment on above: Performed By: #### T ROPI, LACTIC, CMPX, CBC #### [facility] [address] [place] [address] [phone] [employer]ic: Tavon Nicole MD Calcium [Mass/Vol] 8.1 mg/dL Low 8.6-10.4 [facility] Comment on above: Performed By: #### T ROPI, LACTIC, CMPX, CBC #### [facility] [address] [place] [address] [phone] [employer]ic: Tavon Nicole MD Chloride [Moles/Vol] 107 mmol/L Normal 98-107 [facility] Comment on above: Performed By: #### T ROPI, LACTIC, CMPX, CBC #### [facility] [address] [place] [address] [phone] [employer]ic: Tavon Nicole MD CO2 [Moles/Vol] 19 mmol/L Low 20-31 [facility] Comment on above: Performed By: #### T ROPI, LACTIC, CMPX, CBC #### [facility] [address] [place] [address] [phone] [employer]ic: Tavon Nicole MD Creatinine [Mass/Vol] 0.53 mg/dL Normal 0.50-0.90 [facility] Comment on above: Performed By: #### T ROPI, LACTIC, CMPX, CBC #### [facility] [address] [place] [address] [phone] [employer]ic: Tavon Nicole MD GFR, Amer >60 Normal >60 [facility] Comment on above: Performed By: #### T ROPI, LACTIC, CMPX, CBC #### [facility] [address] [place] [address] [phone] [employer]ic: Tavon Nicole MD GFR,non Amer >60 Normal >60 [facility] Comment on above: Performed By: #### T ROPI, LACTIC, CMPX, CBC #### [facility] [address] [place] [address] 05457 [employer]ic: Tavon Nicole MD Glucose [Mass/Vol] 81 mg/dL Normal 70-99 [facility] Comment on above: Performed By: #### T ROPI, LACTIC, CMPX, CBC #### [facility] [address] [place] [address] [phone] [employer]ic: Tavon Nicole MD Potassium [Moles/Vol] 3.9 mmol/L Normal 3.7-5.3 [facility] Comment on above: Performed By: #### T ROPI, LACTIC, CMPX, CBC #### [facility] [address] [place], [place] [phone] [employer]ic: Tavon Nicole MD Protein [Mass/Vol] 6.0 g/dL Low 6.4-8.3 [facility] Comment on above: Performed By: #### T ROPI, LACTIC, CMPX, CBC #### [facility] [address] [place], [place] [phone] [employer]ic: Tavon Nicole MD Sodium [Moles/Vol] 139 mmol/L Normal 135-144 [facility] Comment on above: Performed By: #### T ROPI, LACTIC, CMPX, CBC #### [facility] [place], [place] [phone] [employer]ic: Tavon Nicole MD Urea nitrogen [Mass/Vol] 10 mg/dL Normal 6-20 [facility] Comment on above: Performed By: #### T ROPI, LACTIC, CMPX, CBC #### [facility] [place], [place] [phone] [employer]ic: Tavon Nicole MD Comprehensive Metabolic Pane l w/ Reflex to MGon 10-19-2021 Albumin [Mass/Vol] 3.5 g/dL 3.5 - 5.2 g/dL [facility] Albumin/Globulin [Mass ratio] 1.4 {ratio} 1 - 2.5 [facility] ALP (Bld) [Catalytic activity/Vol] 69 U/L 35 - 104 U/L [facility] ALT [Catalytic activity/Vol] 15 U/L 5 - 33 U/L [facility] Anion gap [Moles/Vol] 13 mmol/L 9 - 17 mmol/L [facility] AST [Catalytic activity/Vol] 12 U/L NINF - 32 U/L [facility] Bilirubin [Mass/Vol] 0.24 mg/dL Low 0.3 - 1 .2 mg/dL [facility] Calcium [Mass/Vol] 8.1 mg/dL Low 8.6 - 10. 4 mg/dL [facility] Chloride [Moles/Vol] 107 mmol/L 98 - 10 7 mmol/L [facility] CO2 [Moles/Vol] 19 mmol/L Low 20 - 31 mmol/L [facility] Creatinine [Mass/Vol] 0.53 mg/dL 0.5 - 0.9 mg/dL [facility] Free PSA/Total PSA [Mass fraction] 6.0 g/dL Low 6.4 - 8.3 g/dL [facility] GFR >60 60 - PI NF mL/min [facility] GFR Non- >60 60 - PINF mL/min [facility] GFR/1.73 sq M.predicted MDRD (S/P/Bld) [Vol rate/Area] [facility] Comment on above: Average GFR for 20-2 9 years old: 116 mL/min/1.73sq m Chronic Kidney Disease: <60 mL/min/1.73sq m Kidney failure: <15 mL/min/1.73sq m eGFR calculated using average adult body mass. Additional eGFR calculator available at: http://www.[employer]/multiple_crcl_2012.htm Glucose [Mass/Vol] 81 mg/dL 70 - 99 mg/dL [facility] Interpretation and review of laboratory results Abnormal [facility] Potassium [Moles/Vol] 3.9 mmol/L 3.7 - 5.3 mmol/L [facility] Sodium [Moles/Vol] 139 mmol/L 135 - 144 mmol/L [facility] Urea nitrogen (BldV) [Mass/Vol] 10 mg/dL 6 - 20 mg/dL [facility] Covid-19 PCR (CVDTBH)on 09-22 SARS-CoV-2 (COVID-19) RNA SAURABH+probe Ql (Unsp spec) Not detected Normal NOT DETECTED [facility] Comment on above: Result Comment: When [...] for this test is supported by the [employer] Dock Attendant of Health and Human Service's declaration that [...] used). Performed By: #### C VDTB #### [facility] [address] [place] [address] Dr. Ibis Jimenez DRUG SCREEN RAPID (URINE)on 10-19-2021 AMP Negative Normal NEGATIVE [facility] Comment on above: Performed By: #### B MP #### [facility] [address] [place] [address] Dr. Ibis Jimenez BAR Positive Abnormal NEGATIVE [facility] Comment on above: Performed By: #### B MP #### [facility] [address] [place] [address] Dr. Ibis Jimenez BUP Negative Normal NEGATIVE [facility] Comment on above: Performed By: #### B MP #### [facility] [address] [place] [address] Dr. Ibis Jimenez BZO Positive Abnormal NEGATIVE [facility] Comment on above: Performed By: #### B MP #### [facility] [address] [place] [address] Dr. Ibis Jimenez SEMAJ Negative Normal NEGATIVE [facility] Comment on above: Performed By: #### B MP #### [facility] [address] [place] [address] Dr. Ibis Jimenez CUT-OFFS SEE BELOW Normal [facility] Comment on above: Result Comment: AMP [...] ng/mL Performed By: #### B MP #### [facility] [address] [place] [address] Dr. Ibis Jimenez DRUG CUT HEADER DRUG CLASS TEST SYSTEM CUT-OFF CONCENTRATIONS ARE FOLLOWS: Normal [facility] Comment on above: Performed By: #### B MP #### [facility] [address] [place] [address] Dr. Ibis Jimenez mAMP Negative Normal NEGATIVE [facility] Comment on above: Performed By: #### B MP #### [facility] [address] [place] [address] Dr. Ibis Jimenez MTD Negative Normal NEGATIVE [facility] Comment on above: Performed By: #### B MP #### [facility] [address] [place] [address] Dr. Ibis Jimenez OPI Positive Abnormal NEGATIVE [facility] Comment on above: Performed By: #### B MP #### [facility] [address] [place] [address] Dr. Ibis Jimenez OXY Positive Abnormal NEGATIVE [facility] Comment on above: Performed By: #### B MP #### [facility] [address] [place] [address] Dr. Ibis Jimenez PCP Negative Normal NEGATIVE [facility] Comment on above: Performed By: #### B MP #### [facility] [address] [place] [address] Dr. Ibis Jimenez PPX Negative Normal NEGATIVE [facility] Comment on above: Performed By: #### B MP #### [facility] [address] [place] [address] Dr. Ibis Jimenez TCA Negative Normal NEGATIVE [facility] Comment on above: Performed By: #### B MP #### [facility] [address] [place] [address] Dr. Ibis Jimenez THC Negative Normal NEGATIVE [facility] Comment on above: Performed By: #### B MP #### [facility] [address] [place] [address] Dr. Ibis Jimenez ER URINE PROFILEon 2 Bilirubin Ql (U) Negative Normal NEGATIVE [facility] Comment on above: Performed By: #### B MP #### [facility] [address] [place] [address] Dr. Ibis Jimenez Clarity (U) CLEAR Normal CLEAR [facility] Comment on above: Performed By: #### B MP #### [facility] [address] [place] [address] Dr. Ibis Jimenez Color (U) YELLOW Normal YELLOW [facility] Comment on above: Performed By: #### B MP #### [facility] [address] [place] [address] Dr. Ibis LOZOYAKishan A micrscopic examination will be performed if indicated. Normal [facility] Comment on above: Performed By: #### B MP #### [facility] [address] [place] [address] Dr. Ibis Jimenez Glucose Ql (U) Negative Normal NEGATIVE [facility] Comment on above: Performed By: #### B MP #### [facility] [address] [place] [address] Dr. Ibis Jimenez Hemoglobin Ql (U) TRACE-INTACT Abnormal NEGATIVE [facility] Comment on above: Performed By: #### B MP #### [facility] [address] [place] [address] Dr. Ibis Jimenez Ketones Ql (U) Negative Normal NEGATIVE [facility] Comment on above: Performed By: #### B MP #### [facility] [address] [place] [address] Dr. Ibis Jimenez LEUKOCYTES Negative Normal NEGATIVE [facility] Comment on above: Performed By: #### B MP #### [facility] [address] [place] [address] Dr. Ibis Jimenez Nitrite Ql (U) Negative Normal NEGATIVE [facility] Comment on above: Performed By: #### B MP #### [facility] [address] [place] [address] Dr. Ibis Jimenez pH (U) 5.5 [pH] Normal 5-9 [facility] Comment on above: Performed By: #### B MP #### [facility] [address] [place] [address] Dr. Ibis Jimenez SPEC GRAVITY >=1.030 Abnormal 1.005-<=1.02 5 [facility] Comment on above: Performed By: #### B MP #### [facility] [address] [place] [address] Dr. Ibis Jimenez UA PROTEIN Negative Normal NEGATIVE/ TRACE [facility] Comment on above: Performed By: #### B MP #### [facility] [address] [place] [address] Dr. Ibis Jimenez UR MICRO IND INDICATED Normal [facility] Comment on above: Performed By: #### B MP #### [facility] [address] [place] [address] Dr. Ibis Jimenez Urobilinogen Qn (U) 0.2 {Dinorah'U}/dL Normal 0.2 - 1. 0 [facility] Comment on above: Performed By: #### B MP #### [facility] [address] [place] [address] Dr. Ibis Jimenez LACTATE/LACTIC ACIDon 2021 Lactate [Moles/Vol] 1.2 mmol/L Normal 0.4-1.9 [facility] Comment on above: Performed By: #### A MM #### [facility] [address] [place] [address] Dr. Ibis Jimenez Lactic Acidon 10-19-2021 Lactic Acid,Whole Bl 0.9 mmol/L Normal 0.7-2.1 [facility] Comment on above: Performed By: #### T ROPI, LACTIC, CMPX, CBC #### [address] [id number] [employer] Mechanic: Tavon Nicole MD Lactic Acid, Whole Blood 0.9 mmol/L 0.7 - 2.1 mmol/L [facility] MONOon 10-19-2021 Monocytes (Bld) [#/Vol] Negative Normal NEGATIVE T [facility] Comment on above: Performed By: #### M DAVID #### [facility] [address] [address] [address] Ibis Jimenez MRI BRAIN W WO [...] Carlos Marks DO 10/19/21 Final result Normal [facility] Unremarkable MR brain. [facility] RIS CONSOLIDATED EXAMINATION: MRI OF THE [...] The soft tissues demonstrate no acute abnormality. [facility] Carlos Marks, DO - 10/19/2021 EXAMINATION: [...] no acute abnormality. IMPRESSION: Unremarkable MR brain. [employer] Phone: Radiology Study observation (narrative) [employer] Phone: MRI BRAIN W WO CONTRASTOrder ed By: Carlos Marks on 10-19-2021 [employer] Phone: PH VENOUS BLOODon 10-19-2021 PCO2 VENOUS 36.6 mmHg Critically low 40.0-52.0 [facility] Comment on above: Performed By: #### B MP #### [facility] [address] [place] [address] Dr. Ibis Jimenez pH VENOUS 7.387 Normal 7.330-7.430 [facility] Comment on above: Performed By: #### B MP #### [facility] [address] [address] [address] Ibis Jimenez PROF CHEM 8 (BAS METB)on Anion gap [Moles/Vol] 11.9 mmol/L Normal [facility] Comment on above: Performed By: #### M DAVID #### [facility] [address] [place] [address] Dr. Ibis Jimeenz Calcium [Mass/Vol] 9.1 mg/dL Normal 8.5-10.1 [facility] Comment on above: Performed By: #### M DAVID #### [facility] [address] [address] [address] Ibis Jimenez Chloride [Moles/Vol] 104 mmol/L Normal 98-107 [facility] Comment on above: Performed By: #### M DAVID #### [facility] [address] [place] [address] Dr. Ibis Jimenez CO2 [Moles/Vol] 26.7 mmol/L Normal 21.0-32.0 [facility] Comment on above: Performed By: #### M DAVID #### [facility] [address] [address] [address] Iibs Jimenez Creatinine [Mass/Vol] 0.78 mg/dL Normal 0.55-1.02 [facility] Comment on above: Performed By: #### M DAVID #### [facility] [address] [place] [address] Dr. Ibis Jimenez EGFR-AF EAST TIMORESE >60 Normal >=60 [facility] Comment on above: Performed By: #### M DAVID #### [facility] [address] [address] [address] Ibis Jimenez EGFR-NON AF EAST [place] >60 Normal >=60 [facility] Comment on above: Performed By: #### M DAVID #### [facility] [address] [address] [address] Ibis Jimenez Glucose [Mass/Vol] 96 mg/dL Normal 74-106 [facility] Comment on above: Performed By: #### M DAVID #### [facility] [address] [address] [address] Ibis Jimenez Potassium [Moles/Vol] 3.6 mmol/L Normal 3.5-5.1 [facility] Comment on above: Performed By: #### M DAVID #### [facility] [address] [address] [address] Ibis Jimenez Sodium [Moles/Vol] 139 mmol/L Normal 136-145 [facility] Comment on above: Performed By: #### M DAVID #### [facility] [address] [address] [address] Ibis Jimenez Urea nitrogen [Mass/Vol] 14.0 mg/dL Normal 7.0-18.0 [facility] Comment on above: Performed By: #### M DAVID #### [facility] [address] [address] [address] Ibis Jimenez Urea nitrogen/Creatinine [Mass ratio] 17.9 mg/mg Normal [facility] Comment on above: Performed By: #### M DAVID #### [facility] [address] [address] [address] Ibis Jimenez TSHon 10-19-2021 TSH 1.389 uIU/mL Normal 0.358-3.740 [facility] Comment on above: Performed By: #### A KORI DAVIS #### [facility] [address] [address] [address] Ibis Jimenez Troponinon 10-19-2021 Troponin, High Sens <6 Normal 0-14 [facility] Comment on above: Result Comment: High Sensitivity Troponin values cannot be compared with other Troponin methodologies. Patients with high levels of Biotin oral intake (i.e >5mg/day) may have falsely decreased Troponin levels. Samples collected within 8 hours of biotin intake may require additional information for diagnosis. Performed By: #### T ROPI, LACTIC, CMPX, CBC #### [facility] [address] [place] [address] [employer]ic: Tavon Nicole MD Troponin, High Sensitivity ng/L 0 - 14 ng/L [facility] Comment on above: High Sensitivity Troponin values cannot be compared with other Troponin methodologies. Patients with high levels of Biotin oral intake (i.e >5mg/day) may have falsely decreased Troponin levels. Samples collected within 8 hours of biotin intake may require additional information for diagnosis. [facility] URINE MICROSCOPIC ONLYon BACTERIA TRACE Abnormal NONE SEEN [facility] Comment on above: Performed By: #### B MP #### [facility] [address] [place] [address] Dr. Ibis Jimenez Bacteria identified Cx Nom (U) NOT INDICATED Normal [facility] Comment on above: Performed By: #### B MP #### [facility] [address] [place] [address] Dr. Ibis Jimenez CAST NONE SEEN Normal NONE SEEN [facility] Comment on above: Performed By: #### B MP #### [facility] [address] [place] [address] Dr. Ibis Jimenez Crystals LM Nom (Urine sed) NONE SEEN Normal NONE SEEN [facility] Comment on above: Performed By: #### B MP #### [facility] [address] [place] [address] Dr. Ibis Jimenez Epithelial cells LM Ql (Urine sed) RARE Normal NONE SEEN /RARE [facility] Comment on above: Performed By: #### B MP #### [facility] [address] [place] [address] Dr. Ibis Jimenez MUCOUS LARGE Abnormal NONE SEEN [facility] Comment on above: Performed By: #### B MP #### [facility] [address] [place] [address] Dr. Ibis Jimenez RBC 2-5 Abnormal 0-2 [facility] Comment on above: Performed By: #### B MP #### [facility] [address] [place], [place] [address] Dr. Ibis Jimenez WBC 0-2 Abnormal NONE SEEN [facility] Comment on above: Performed By: #### B MP #### [facility] [address] [place], [place] [address] ABD/PELVIS WO CONon [...] JASS LAURENT Date: 2021-10-06 20:08 Normal [facility] ER URINE PROFILEon 2 Bilirubin Ql (U) Negative Normal NEGATIVE [facility] Comment on above: Performed By: #### M DAVID #### [facility] [address] [address] [address] Ibis Jimenez Clarity (U) CLEAR Normal CLEAR [facility] Comment on above: Performed By: #### M DAVID #### [facility] [address] [address] [address] Ibis Jimenez Color (U) LT. YELLOW Normal YELLOW [facility] Comment on above: Performed By: #### M DAVID #### [facility] [address] [place] [address] Dr. Ibis RODRIGUEZ A micrscopic examination will be performed if indicated. Normal [facility] Comment on above: Performed By: #### M DAVID #### [facility] [address] [place] [address] Dr. Ibis Jimenez Glucose Ql (U) Negative Normal NEGATIVE [facility] Comment on above: Performed By: #### M DAVID #### [facility] [address] [place] [address] Dr. Ibis Jimenez Hemoglobin Ql (U) Negative Normal NEGATIVE [facility] Comment on above: Performed By: #### M DAVID #### [facility] [address] [place] [address] Dr. Ibis Jimenez Ketones Ql (U) Negative Normal NEGATIVE [facility] Comment on above: Performed By: #### M DAVID #### [facility] [address] [place] [address] Dr. Ibis Jimenez LEUKOCYTES Negative Normal NEGATIVE [facility] Comment on above: Performed By: #### M DAVID #### [facility] [address] [place] [address] Dr. Ibis Jimenez Nitrite Ql (U) Negative Normal NEGATIVE [facility] Comment on above: Performed By: #### M DAVID #### [facility] [address] [place] [address] Dr. Ibis Jimenez pH (U) 8.0 [pH] Normal 5-9 [facility] Comment on above: Performed By: #### M DAVID #### [facility] [address] [place] [address] Dr. Ibis Jimenez SPEC GRAVITY 1.010 Normal 1.005-<=1.02 5 [facility] Comment on above: Performed By: #### M DAVID #### [facility] [address] [place] [address] Dr. Ibis Jimenez UA PROTEIN Negative Normal NEGATIVE/ TRACE [facility] Comment on above: Performed By: #### M DAVID #### [facility] [address] [address] [address] Ibis Jimenez UR MICRO IND NOT INDICATED Normal [facility] Comment on above: Performed By: #### M DAVID #### [facility] [address] [place] [address] Dr. Ibis Jimenez Urobilinogen Qn (U) 0.2 {Dinorah'U}/dL Normal 0.2 - 1. 0 [facility] Comment on above: Performed By: #### M DAVID #### [facility] [address] [place] [address] Dr. Ibis Jimenez ER URINE PROFILEon 2 Bilirubin Ql (U) Negative Normal NEGATIVE [facility] Comment on above: Performed By: #### C VDTBH #### [facility] [address] [place] [address] Dr. Ibis Jimenez Clarity (U) CLEAR Normal CLEAR [facility] Comment on above: Performed By: #### C VDTBH #### [facility] [address] [place] [address] Dr. Ibis Jimenez Color (U) YELLOW Normal YELLOW [facility] Comment on above: Performed By: #### C VDTBH #### [facility] [address] [place] [address] Dr. Ibis LOZOYAKishan A micrscopic examination will be performed if indicated. Normal [facility] Comment on above: Performed By: #### C VDTBH #### [facility] [address] [place] [address] Dr. Ibis Jimenez Glucose Ql (U) Negative Normal NEGATIVE [facility] Comment on above: Performed By: #### C VDTBH #### [facility] [address] [place] [address] Dr. Ibis Jimenez Hemoglobin Ql (U) Negative Normal NEGATIVE [facility] Comment on above: Performed By: #### C VDTBH #### [facility] [address] [place] [address] Dr. Ibis Jimenez Ketones Ql (U) Negative Normal NEGATIVE [facility] Comment on above: Performed By: #### C VDTBH #### [facility] [address] [place] [address] Dr. Ibis Jimenez LEUKOCYTES Negative Normal NEGATIVE [facility] Comment on above: Performed By: #### C VDTBH #### [facility] [address] [place] [address] Dr. Ibis Jimenez Nitrite Ql (U) Negative Normal NEGATIVE [facility] Comment on above: Performed By: #### C VDTBH #### [facility] [address] [place] [address] Dr. Ibis Jimenez pH (U) 6.0 [pH] Normal 5-9 [facility] Comment on above: Performed By: #### C VDTBH #### [facility] [address] [place] [address] Dr. Ibis Jimenez SPEC GRAVITY 1.025 Normal 1.005-<=1.02 5 [facility] Comment on above: Performed By: #### C VDTBH #### [facility] [address] [place] [address] Dr. Ibis Jimenez UA PROTEIN Negative Normal NEGATIVE/ TRACE [facility] Comment on above: Performed By: #### C VDTBH #### [facility] [address] [place] [address] Dr. Ibis Jimenez UR MICRO IND NOT INDICATED Normal [facility] Comment on above: Performed By: #### C VDTBH #### [facility] [address] [place] [address] Dr. Ibis Jimenez Urobilinogen Qn (U) 0.2 {Dinorah'U}/dL Normal 0.2 - 1. 0 [facility] Comment on above: Performed By: #### C VDTBH #### [facility] [address] [address] [address] Ibis Jimenez CBC AUTO DIFFon 10-03-2021 BASO # 0.0 103/ul Normal 0.0-0.1 [facility] Comment on above: Performed By: #### B MP #### [facility] [address] [address] [address] Ibis Jimenez Basophils/100 WBC (Bld) 0.3 % Normal 0.2-2.0 [facility] Comment on above: Performed By: #### B MP #### [facility] [address] [address] [address] Ibis Jimenez EO # 0.3 103/ul Normal 0.0-0.7 [facility] Comment on above: Performed By: #### B MP #### [facility] [address] [place] [address] Dr. Ibis Jimenez Eosinophils/100 WBC (Bld) 4.1 % Normal 0.9-7.0 [facility] Comment on above: Performed By: #### B MP #### [facility] [address] [place] [address] Dr. Ibis Jimenez Erythrocyte distribution width (RBC) [Ratio] 13.2 % Normal 11.0-15.0 [facility] Comment on above: Performed By: #### B MP #### [facility] [address] [place] [address] Dr. Ibis Jiemnez Hematocrit (Bld) [Volume fraction] 35.7 % Critically low 36.0-48.0 [facility] Comment on above: Performed By: #### B MP #### [facility] [address] [place] [address] Dr. Ibis Jimenez Hemoglobin (Bld) [Mass/Vol] 11.6 g/dL Critically low 12.0-16.0 [facility] Comment on above: Performed By: #### B MP #### [facility] [address] [place] [address] Dr. Ibis Jimenez IG # 0.02 10e3/ul Normal 0.00-0.03 [facility] Comment on above: Performed By: #### B MP #### [facility] [address] [place] [address] Dr. Ibis Jimenez IG % 0.3 % Normal 0.0-0.5 [facility] Comment on above: Performed By: #### B MP #### [facility] [address] [place] [address] Dr. Ibis Jimenez LYMPH # 1.5 103/ul Normal 1.2-3.8 [facility] Comment on above: Performed By: #### B MP #### [facility] [address] [place] [address] Dr. Ibis Jimenez Lymphocytes/100 WBC (Bld) 24.3 % Normal 20.5-60.0 [facility] Comment on above: Performed By: #### B MP #### [facility] [address] [place] [address] Dr. Ibis Jimenez MANUAL DIFF REQ NO Normal [facility] Comment on above: Performed By: #### B MP #### [facility] [address] [place] [address] Dr. Ibis Jimenez MCH (RBC) [Entitic mass] 28.9 pg Normal 26.7-34.0 [facility] Comment on above: Performed By: #### B MP #### [facility] [address] [place] [address] Dr. Ibis Jimenez MCHC (RBC) [Mass/Vol] 32.5 g/dL Normal 29.9-35.2 [facility] Comment on above: Performed By: #### B MP #### [facility] [address] [place] [address] Dr. Ibis Jimenez MCV (RBC) [Entitic vol] 89.0 fL Normal 81.0-99.0 [facility] Comment on above: Performed By: #### B MP #### [facility] [address] [place] [address] Dr. Ibis Jimenez MONO # 0.5 103/ul Normal 0.3-0.8 [facility] Comment on above: Performed By: #### B MP #### [facility] [address] [address] [address] Ibis Jimenez Monocytes/100 WBC (Bld) 7.3 % Normal 1.7-12.0 [facility] Comment on above: Performed By: #### B MP #### [facility] [address] [address] [address] Ibis Jimenez NEUT # 4.0 103/ul Normal 1.4-6.5 [facility] Comment on above: Performed By: #### B MP #### [facility] [address] [address] [address] Ibis Jimenez Neutrophils/100 WBC (Bld) 63.7 % Normal 43.0-75.0 [facility] Comment on above: Performed By: #### B MP #### [facility] [address] [address] [address] Ibis Jimenez Platelet mean volume (Bld) [Entitic vol] 9.7 fL Normal 9.5-13.5 [facility] Comment on above: Performed By: #### B MP #### [facility] [address] [address] [address] Ibis Jimenez PLT 237 103/ul Normal 150-450 [facility] Comment on above: Performed By: #### B MP #### [facility] [address] [address] [address] Ibis Jimenez RBC 4.01 106/ul Critically low 4.20-5.40 [facility] Comment on above: Performed By: #### B MP #### [facility] [address] [address] [address] Ibis Jimenez WBC 6.3 103/ul Normal 4.0-11.0 [facility] Comment on above: Performed By: #### B MP #### [facility] [address] [address] [address] Ibis Jimenez LACTATE/LACTIC ACIDon 2021 Lactate [Moles/Vol] 1.2 mmol/L Normal 0.4-1.9 [facility] Comment on above: Performed By: #### A MM #### [facility] [address] [place] [address] Dr. Ibis Jimenez BUNon 10-02-2021 Urea nitrogen [Mass/Vol] 7.0 mg/dL Normal 7.0-18.0 [facility] Comment on above: Performed By: #### C VDTBH #### [facility] [address] [place] [address] Dr. Ibis Jimenez CBC AUTO DIFFon 10-02-2021 BASO # 0.0 103/ul Normal 0.0-0.1 [facility] Comment on above: Performed By: #### A MM #### [facility] [address] [place] [address] Dr. Ibis Jimenez Basophils/100 WBC (Bld) 0.2 % Normal 0.2-2.0 [facility] Comment on above: Performed By: #### A MM #### [facility] [address] [place] [address] Dr. Ibis Jimenez EO # 0.0 103/ul Normal 0.0-0.7 [facility] Comment on above: Performed By: #### A MM #### [facility] [address] [place] [address] Dr. Ibis Jimenez Eosinophils/100 WBC (Bld) 0.3 % Critically low 0.9-7.0 [facility] Comment on above: Performed By: #### A MM #### [facility] [address] [place] [address] Dr. Ibis Jimenez Erythrocyte distribution width (RBC) [Ratio] 12.7 % Normal 11.0-15.0 [facility] Comment on above: Performed By: #### A MM #### [facility] [address] [place] [address] Dr. Ibis Jimenez Hematocrit (Bld) [Volume fraction] 43.4 % Normal 36.0-48.0 [facility] Comment on above: Performed By: #### A MM #### [facility] [address] [place] [address] Dr. Ibis Jimenez Hemoglobin (Bld) [Mass/Vol] 14.6 g/dL Normal 12.0-16.0 [facility] Comment on above: Performed By: #### A MM #### [facility] [address] [place] [address] Dr. Ibis Jimenez IG # 0.03 10e3/ul Normal 0.00-0.03 [facility] Comment on above: Performed By: #### A MM #### [facility] [address] [place] [address] Dr. Ibis Jimenez IG % 0.3 % Normal 0.0-0.5 [facility] Comment on above: Performed By: #### A MM #### [facility] [address] [place] [address] Dr. Ibis Jimenez LYMPH # 1.2 103/ul Normal 1.2-3.8 [facility] Comment on above: Performed By: #### A MM #### [facility] [address] [place] [address] Dr. Ibis Jimenez Lymphocytes/100 WBC (Bld) 11.6 % Critically low 20.5-60.0 [facility] Comment on above: Performed By: #### A MM #### [facility] [address] [place] [address] Dr. Ibis Jimenez MANUAL DIFF REQ NO Normal [facility] Comment on above: Performed By: #### A MM #### [facility] [address] [place] [address] Dr. Ibis Jimenez MCH (RBC) [Entitic mass] 28.5 pg Normal 26.7-34.0 [facility] Comment on above: Performed By: #### A MM #### [facility] [address] [place] [address] Dr. Ibis Jimenez MCHC (RBC) [Mass/Vol] 33.6 g/dL Normal 29.9-35.2 [facility] Comment on above: Performed By: #### A MM #### [facility] [address] [place] [address] Dr. Ibis Jimenez MCV (RBC) [Entitic vol] 84.6 fL Normal 81.0-99.0 [facility] Comment on above: Performed By: #### A MM #### [facility] [address] [place] [address] Dr. Ibis Jimenez MONO # 0.6 103/ul Normal 0.3-0.8 [facility] Comment on above: Performed By: #### A MM #### [facility] [address] [place] [address] Dr. Ibis Jimenez Monocytes/100 WBC (Bld) 5.9 % Normal 1.7-12.0 [facility] Comment on above: Performed By: #### A MM #### [facility] [address] [place] [address] Dr. Ibis Jimenez NEUT # 8.2 103/ul Critically high 1.4-6.5 [facility] Comment on above: Performed By: #### A MM #### [facility] [address] [place] [address] Dr. Ibis Jimenez Neutrophils/100 WBC (Bld) 81.7 % Critically high 43.0-75.0 [facility] Comment on above: Performed By: #### A MM #### [facility] [address] [place] [address] Dr. Ibis Jimenez Platelet mean volume (Bld) [Entitic vol] 9.8 fL Normal 9.5-13.5 [facility] Comment on above: Performed By: #### A MM #### [facility] [address] [place] [address] Dr. Ibis Jimenez PLT 264 103/ul Normal 150-450 [facility] Comment on above: Performed By: #### A MM #### [facility] [address] [place] [address] Dr. Ibis Jimenez RBC 5.13 106/ul Normal 4.20-5.40 [facility] Comment on above: Performed By: #### A MM #### [facility] [address] [place] [address] Dr. Ibis Jimenez WBC 10.1 103/ul Normal 4.0-11.0 [facility] Comment on above: Performed By: #### A MM #### [facility] [address] [place] [address] Dr. Ibis Jimenez CREATININEon 10-02-2021 Creatinine [Mass/Vol] 0.69 mg/dL Normal 0.55-1.02 [facility] Comment on above: Performed By: #### C VDTBH #### [facility] [address] [place] [address] Dr. Ibis Jimenez EGFR-AF [place] >60 Normal >=60 [facility] Comment on above: Performed By: #### C VDTBH #### [facility] [address] [place] [address] Dr. Ibis Jimenez EGFR-NON AF [place] >60 Normal >=60 [facility] Comment on above: Performed By: #### C VDTBH #### [facility] [address] [place] [address] Dr. Ibis Jimenez CBC AUTO DIFFon 10-01-2021 BASO # 0.0 103/ul Normal 0.0-0.1 [facility] Comment on above: Performed By: #### A MM #### [facility] [address] [place] [address] Dr. Ibis Jimenez Basophils/100 WBC (Bld) 0.3 % Normal 0.2-2.0 [facility] Comment on above: Performed By: #### A MM #### [facility] [address] [place] [address] Dr. Ibis Jimenez EO # 0.1 103/ul Normal 0.0-0.7 [facility] Comment on above: Performed By: #### A MM #### [facility] [address] [place] [address] Dr. Ibis Jimenez Eosinophils/100 WBC (Bld) 1.9 % Normal 0.9-7.0 [facility] Comment on above: Performed By: #### A MM #### [facility] [address] [place] [address] Dr. Ibis Jimenez Erythrocyte distribution width (RBC) [Ratio] 12.7 % Normal 11.0-15.0 [facility] Comment on above: Performed By: #### A MM #### [facility] [address] [address] [address] Ibis Jimenez Hematocrit (Bld) [Volume fraction] 38.1 % Normal 36.0-48.0 [facility] Comment on above: Performed By: #### A MM #### [facility] [address] [place] [address] Dr. Ibis Jimenez Hemoglobin (Bld) [Mass/Vol] 12.7 g/dL Normal 12.0-16.0 [facility] Comment on above: Performed By: #### A MM #### [facility] [address] [place] [address] Dr. Ibis Jimenez IG # 0.02 10e3/ul Normal 0.00-0.03 [facility] Comment on above: Performed By: #### A MM #### [facility] [address] [place] [address] Dr. Ibis Jimenez IG % 0.3 % Normal 0.0-0.5 [facility] Comment on above: Performed By: #### A MM #### [facility] [address] [place] [address] Dr. Ibis Jimenez LYMPH # 1.9 103/ul Normal 1.2-3.8 [facility] Comment on above: Performed By: #### A MM #### [facility] [address] [place] [address] Dr. Ibis Jimenez Lymphocytes/100 WBC (Bld) 30.5 % Normal 20.5-60.0 [facility] Comment on above: Performed By: #### A MM #### [facility] [address] [place] [address] Dr. Ibis Jimenez MANUAL DIFF REQ NO Normal [facility] Comment on above: Performed By: #### A MM #### [facility] [address] [place] [address] Dr. Ibis Jimenez MCH (RBC) [Entitic mass] 28.3 pg Normal 26.7-34.0 [facility] Comment on above: Performed By: #### A MM #### [facility] [address] [address] [address] Ibis Jimenez MCHC (RBC) [Mass/Vol] 33.3 g/dL Normal 29.9-35.2 [facility] Comment on above: Performed By: #### A MM #### [facility] [address] [address] [address] Ibis Jimenez MCV (RBC) [Entitic vol] 85.0 fL Normal 81.0-99.0 [facility] Comment on above: Performed By: #### A MM #### [facility] [address] [address] [address] Ibis Jimenez MONO # 0.3 103/ul Normal 0.3-0.8 [facility] Comment on above: Performed By: #### A MM #### [facility] [address] [place] [address] Dr. Ibis Jimenez Monocytes/100 WBC (Bld) 5.2 % Normal 1.7-12.0 [facility] Comment on above: Performed By: #### A MM #### [facility] [address] [place] [address] Dr. Ibis Jimenez NEUT # 3.9 103/ul Normal 1.4-6.5 [facility] Comment on above: Performed By: #### A MM #### [facility] [address] [place] [address] Dr. Ibis Jimenez Neutrophils/100 WBC (Bld) 61.8 % Normal 43.0-75.0 [facility] Comment on above: Performed By: #### A MM #### [facility] [address] [place] [address] Dr. Ibis Jimenez Platelet mean volume (Bld) [Entitic vol] 9.7 fL Normal 9.5-13.5 [facility] Comment on above: Performed By: #### A MM #### [facility] [address] [place] [address] Dr. Ibis Jimenez PLT 255 103/ul Normal 150-450 [facility] Comment on above: Performed By: #### A MM #### [facility] [address] [address] [address] Ibis Jimenez RBC 4.48 106/ul Normal 4.20-5.40 [facility] Comment on above: Performed By: #### A MM #### [facility] [address] [place] [address] Dr. Ibis Jimenez WBC 6.3 103/ul Normal 4.0-11.0 [facility] Comment on above: Performed By: #### A MM #### [facility] [address] [address] [address] Ibis Jimenez PREG HCG QUALon 10-01-2021 , QUAL Negative Normal NEGATIVE [facility] Comment on above: Performed By: #### M DAVID #### [facility] [address] [place] [address] Dr. Ibis Jimenez Covid-19 PCR (CVDTB)on 09-20 SARS-CoV-2 (COVID-19) RNA SAURABH+probe Ql (Unsp spec) Not detected Normal NOT DETECTED [facility] Comment on above: Result Comment: This test is not yet approved or cleared by the [place] FDA. When there are no FDA-approved or cleared tests available, and other criteria are met, FDA can make tests available under an emergency access mechanism called an Emergency Use Authorization (EUA). The EUA for this test is supported by the [place] of Health and Human Service's (HHS's) declaration [...] SARS-CoV-2. Performed By: #### B MP #### [facility] [address] [place] [address] Dr. Ibis Jimenez TYPE AND SCREENon 09-29-2021 TYPE AND SCREEN Negative Normal [facility] Comment on above: Performed By: #### B MP #### [facility] [address] [place] [address] [id number] [address] Ibis Jimenez Covid-19 PCR ([facility])on SARS-CoV-2 (COVID-19) RNA SAURABH+probe Ql (Unsp spec) Not detected Normal NOT DETECTED [facility] Comment on above: Result Comment: This test is not yet approved or cleared by the [place] FDA. When there are no FDA-approved or cleared tests available, and other criteria are met, FDA can make tests available under an emergency access mechanism called an Emergency Use Authorization (EUA). The EUA for this test is supported by the [place] of Health and Human Service's (HHS's) declaration [...] SARS-CoV-2. Performed By: #### C VDTB #### [facility] [address] [place] [address] Dr. Ibis Jimenez TYPE AND SCREENon 09-21-2021 TYPE AND SCREEN Negative Normal [facility] Comment on above: Performed By: #### B MP #### [facility] [address] [place] [address] [id number] [address] Ibis Jimenez CHLAMYDIA/GONOCOCCUS SAURABH (SW AB/URINE/PAPon 08-17-2021 Chlamydia trachomatis, SAURABH Negative Normal Negative [facility] Comment on above: Performed By: #### A CET, SALYC #### [facility] [address] [place] [id number] [address] Ibis Jimenez Neisseria gonorrhoeae, SAURABH Negative Normal Negative [facility] Comment on above: Performed By: #### A CET, SALYC #### [facility] [address] [place] [id number] Dr. Ibis Jimenez CBC AUTO DIFFon 08-14-2021 BASO # 0.0 103/ul Normal 0.0-0.1 [facility] Comment on above: Performed By: #### C VDTBH #### [facility] [address] [place] [address] Dr. Ibis Jimenez Basophils/100 WBC (Bld) 0.3 % Normal 0.2-2.0 [facility] Comment on above: Performed By: #### C VDTBH #### [facility] [address] [place] [address] Dr. Ibis Jimenez EO # 0.2 103/ul Normal 0.0-0.7 [facility] Comment on above: Performed By: #### C VDTBH #### [facility] [address] [place] [address] Dr. Ibis Jimenez Eosinophils/100 WBC (Bld) 2.5 % Normal 0.9-7.0 [facility] Comment on above: Performed By: #### C VDTBH #### [facility] [address] [place] [address] Dr. Ibis Jimenez Erythrocyte distribution width (RBC) [Ratio] 13.0 % Normal 11.0-15.0 [facility] Comment on above: Performed By: #### C VDTBH #### [facility] [address] [place] [address] Dr. Ibis Jimenez Hematocrit (Bld) [Volume fraction] 38.1 % Normal 36.0-48.0 [facility] Comment on above: Performed By: #### C VDTBH #### [facility] [address] [place] [address] Dr. Ibis Jimenez Hemoglobin (Bld) [Mass/Vol] 12.8 g/dL Normal 12.0-16.0 [facility] Comment on above: Performed By: #### C VDTBH #### [facility] [address] [place] [address] Dr. Ibis Jimenez IG # 0.02 10e3/ul Normal 0.00-0.03 [facility] Comment on above: Performed By: #### C VDTBH #### [facility] [address] [address] [address] Ibis Jimenez IG % 0.3 % Normal 0.0-0.5 [facility] Comment on above: Performed By: #### C VDTBH #### [facility] [address] [address] [address] Ibis Jimenez LYMPH # 1.5 103/ul Normal 1.2-3.8 [facility] Comment on above: Performed By: #### C VDTBH #### [facility] [address] [address] [address] Ibis Jimenez Lymphocytes/100 WBC (Bld) 22.5 % Normal 20.5-60.0 [facility] Comment on above: Performed By: #### C VDTBH #### [facility] [address] [place] [address] Dr. Ibis Jimenez MANUAL DIFF REQ NO Normal [facility] Comment on above: Performed By: #### C VDTBH #### [facility] [address] [address] [address] Ibis Jimenez MCH (RBC) [Entitic mass] 28.6 pg Normal 26.7-34.0 [facility] Comment on above: Performed By: #### C VDTBH #### [facility] [address] [address] [address] Ibis Jimenez MCHC (RBC) [Mass/Vol] 33.6 g/dL Normal 29.9-35.2 [facility] Comment on above: Performed By: #### C VDTBH #### [facility] [address] [address] [address] Ibis Jimenez MCV (RBC) [Entitic vol] 85.0 fL Normal 81.0-99.0 [facility] Comment on above: Performed By: #### C VDTBH #### [facility] [address] [address] [address] Ibis Jimenez MONO # 0.4 103/ul Normal 0.3-0.8 [facility] Comment on above: Performed By: #### C VDTBH #### [facility] [address] [place] [address] Dr. Ibis Jimenez Monocytes/100 WBC (Bld) 6.3 % Normal 1.7-12.0 [facility] Comment on above: Performed By: #### C VDTBH #### [facility] [address] [place] [address] Dr. Ibis Jimenez NEUT # 4.6 103/ul Normal 1.4-6.5 [facility] Comment on above: Performed By: #### C VDTBH #### [facility] [address] [place] [address] Dr. Ibis Jimenez Neutrophils/100 WBC (Bld) 68.1 % Normal 43.0-75.0 [facility] Comment on above: Performed By: #### C VDTBH #### [facility] [address] [place] [address] Dr. Ibis Jimenez Platelet mean volume (Bld) [Entitic vol] 9.8 fL Normal 9.5-13.5 [facility] Comment on above: Performed By: #### C VDTBH #### [facility] [address] [place] [address] Dr. Ibis Jimenez PLT 243 103/ul Normal 150-450 [facility] Comment on above: Performed By: #### C VDTBH #### [facility] [address] [place] [address] Dr. Ibis Jimenez RBC 4.48 106/ul Normal 4.20-5.40 [facility] Comment on above: Performed By: #### C VDTBH #### [facility] [address] [place] [address] Dr. Ibis Jimenez WBC 6.7 103/ul Normal 4.0-11.0 [facility] Comment on above: Performed By: #### C VDTBH #### [facility] [address] [place] [address] ABD/PELVIS WO CONon 06-25 -2022 CT ABD/PELVIS WO CON TECHNIQUE: CT abdomen [...] Prior cholecystectomy and appendectomy. Electronically authenticated by: ENLI COTTO Date: 2021-08-14 18:00 Normal [facility] URINE PROFILEon 2 Bilirubin Ql (U) SMALL Abnormal NEGATIVE [facility] Comment on above: Performed By: #### B MP #### [facility] [address] [place] [address] Dr. Ibis Jimenez Clarity (U) CLEAR Normal CLEAR [facility] Comment on above: Performed By: #### B MP #### [facility] [address] [address] [address] Ibis Jimenez Color (U) YELLOW Normal YELLOW [facility] Comment on above: Performed By: #### B MP #### [facility] [address] [address] [address] Ibis Jimenez ERUAHD A micrscopic examination will be performed if indicated. Normal [facility] Comment on above: Performed By: #### B MP #### [facility] [address] [address] [address] Ibis Jimenez Glucose Ql (U) Negative Normal NEGATIVE [facility] Comment on above: Performed By: #### B MP #### [facility] [address] [place] [address] Dr. Ibis Jimenez Hemoglobin Ql (U) SMALL Abnormal NEGATIVE [facility] Comment on above: Performed By: #### B MP #### [facility] [address] [address] [address] Ibis Jimenez Ketones Ql (U) TRACE Abnormal NEGATIVE [facility] Comment on above: Performed By: #### B MP #### [facility] [address] [place] [address] Dr. Ibis Jimenez LEUKOCYTES Negative Normal NEGATIVE [facility] Comment on above: Performed By: #### B MP #### [facility] [address] [place] [address] Dr. Ibis Jimenez Nitrite Ql (U) Negative Normal NEGATIVE [facility] Comment on above: Performed By: #### B MP #### [facility] [address] [place] [address] Dr. Ibis Jimenez pH (U) 5.5 [pH] Normal 5-9 [facility] Comment on above: Performed By: #### B MP #### [facility] [address] [place] [address] Dr. Ibis Jimenez SPEC GRAVITY >=1.030 Abnormal 1.005-<=1.02 5 [facility] Comment on above: Performed By: #### B MP #### [facility] [address] [place] [address] Dr. Ibis Jimenez UA PROTEIN TRACE Normal NEGATIVE/ TRACE [facility] Comment on above: Performed By: #### B MP #### [facility] [address] [place] [address] Dr. Ibis Jimenez UR MICRO IND INDICATED Normal [facility] Comment on above: Performed By: #### B MP #### [facility] [address] [address] [address] Ibis Jimenez Urobilinogen Qn (U) 1.0 {Dinorah'U}/dL Normal 0.2 - 1. 0 [facility] Comment on above: Performed By: #### B MP #### [facility] [address] [address] [address] Ibis Jimenez URon 08-14-2021 , QUAL Negative Normal NEGATIVE [facility] Comment on above: Performed By: #### B MP #### [facility] [address] [address] [address] Ibis Jimenez PROF CHEM 8 (BAS METB)on Anion gap [Moles/Vol] 15.3 mmol/L Normal [facility] Comment on above: Performed By: #### B MP #### [facility] [address] [place] [address] Dr. Ibis Jimenez Calcium [Mass/Vol] 8.4 mg/dL Critically low 8.5-10.1 [facility] Comment on above: Performed By: #### B MP #### [facility] [address] [address] [address] Ibis Jimenez Chloride [Moles/Vol] 106 mmol/L Normal 98-107 [facility] Comment on above: Performed By: #### B MP #### [facility] [address] [place] [address] Dr. Ibis Jimenez CO2 [Moles/Vol] 22.3 mmol/L Normal 21.0-32.0 [facility] Comment on above: Performed By: #### B MP #### [facility] [address] [address] [address] Ibis Jimenez Creatinine [Mass/Vol] 0.75 mg/dL Normal 0.55-1.02 [facility] Comment on above: Performed By: #### B MP #### [facility] [address] [address] [address] Ibis Jimenez EGFR-AF EAST [place] >60 Normal >=60 [facility] Comment on above: Performed By: #### B MP #### [facility] [address] [place] [address] Dr. Ibis Jimenez EGFR-NON AF [place] >60 Normal >=60 [facility] Comment on above: Performed By: #### B MP #### [facility] [address] [place] [address] Dr. Ibis Jimenez Glucose [Mass/Vol] 107 mg/dL Critically high 74-106 [facility] Comment on above: Performed By: #### B MP #### [facility] [address] [place] [address] Dr. Ibis Jimenez Potassium [Moles/Vol] 3.6 mmol/L Normal 3.5-5.1 [facility] Comment on above: Performed By: #### B MP #### [facility] [address] [place] [address] Dr. Ibis Jimenez Sodium [Moles/Vol] 140 mmol/L Normal 136-145 [facility] Comment on above: Performed By: #### B MP #### [facility] [address] [place] [address] Dr. Ibis Jimenez Urea nitrogen [Mass/Vol] 13.0 mg/dL Normal 7.0-18.0 [facility] Comment on above: Performed By: #### B MP #### [facility] [address] [place] [address] Dr. Ibis Jimenez Urea nitrogen/Creatinine [Mass ratio] 17.3 mg/mg Normal [facility] Comment on above: Performed By: #### B MP #### [facility] [address] [place] [address] Dr. Ibis Jimenez URINE MICROSCOPIC ONLYon BACTERIA TRACE Abnormal NONE SEEN [facility] Comment on above: Performed By: #### B MP #### [facility] [address] [place] [address] Dr. Ibis Jimenez Bacteria identified Cx Nom (U) NOT INDICATED Normal [facility] Comment on above: Performed By: #### B MP #### [facility] [address] [place] [address] Dr. Ibis Jimenez CAST NONE SEEN Normal NONE SEEN [facility] Comment on above: Performed By: #### B MP #### [facility] [address] [address] [address] Ibis Jimenez Crystals LM Nom (Urine sed) NONE SEEN Normal NONE SEEN [facility] Comment on above: Performed By: #### B MP #### [facility] [address] [address] [address] Ibis Jimenez Epithelial cells LM Ql (Urine sed) MANY Abnormal NONE SEEN /RARE [facility] Comment on above: Performed By: #### B MP #### [facility] [address] [address] [address] Ibis Jimenez MUCOUS SMALL Abnormal NONE SEEN [facility] Comment on above: Performed By: #### B MP #### [facility] [address] [address] [address] Ibis Jimenez RBC 2-5 Abnormal 0-2 [facility] Comment on above: Performed By: #### B MP #### [facility] [address] [address] [address] Ibis Jimenez WBC 2-5 Abnormal NONE SEEN [facility] Comment on above: Performed By: #### B MP #### [facility] [address] [address] [address] Ibis Jimenez CBC Auto DifferentialOrdered By: Vielka Ching on 12-24-2020 [employer] Eos # 0.44 [employer] [facility] Work Phone: Absolute Immature Granulocyte 0.05 [employer] Work Phone: Absolute Lymph # 2.48 [employer] [facility] Work Phone: [employer] Banks # 0.55 [facility] Work Phone: Basophils (Bld) [#/Vol] 10*3/uL [employer] Work Phone: Basophils/100 WBC (Bld) 0 % 0 - 2 % M [employer] Work Phone: Differential Type NOT REPORTED [employer] Work Phone: Eosinophils/100 WBC (Bld) 5 % High 1 - 4 % [employer] Phone: Hematocrit (Bld) [Volume fraction] 37.4 % 36.3 - 47.1 % [employer] Phone: Hemoglobin.gastrointest inal spec 1 Ql (Stl) 12.3 g/dL 11.9 - 15.1 g/dL [employer] Phone: Immature granulocytes/100 WBC (Bld) 1 % High 0 [employer] Phone: Interpretation and review of laboratory results Abnormal [employer] Phone: Lymphocytes/100 WBC (Bld) 30 % 24 - 43 % [employer] Phone: MCH (RBC) [Entitic mass] 28.5 pg 25.2 - 33.5 pg [employer] Phone: MCHC (RBC) [Mass/Vol] 32.9 g/dL 28.4 - 34.8 g/dL [employer] Phone: MCV (RBC) [Entitic vol] 86.8 fL 82.6 - 102.9 fL [employer] Phone: Monocytes/100 WBC (Bld) 7 % 3 - 12 % M [employer] Phone: NRBC Automated 0.0 0.0 per 100 WBC [employer] Phone: Platelet distribution width (Bld) [Ratio] 12.7 % 11.8 - 14.4 % [employer] Phone: Platelet Estimate NOT REPORTED [employer] Phone: Platelet mean volume (Bld) [Entitic vol] 9.4 fL 8.1 - 13.5 fL [employer] Phone: Platelets (Bld) [#/Vol] 252 10*3/uL [employer] Phone: RBC (Bld) [#/Vol] 4.31 10*6/uL 3.95 - 5.1 1 m/uL [facility] Work Phone: RBC (Bld) [#/Vol] NOT REPORTED [facility] Work Phone: Segmented neutrophils/100 WBC (Bld) 57 % 36 - 65 % [employer] Work Phone: Segs Absolute 4.78 [facility] [employer] Work Phone: WBC (Bld) [#/Vol] 8.3 10*3/uL [facility] Work Phone: WBC (Bld) [#/Vol] NOT REPORTED [facility] Work Phone: [facility] Work Phone: CBC with Diffon 12-24-2020 Abs. Basophil <0.03 Normal 0.00-0.20 [facility] Comment on above: Performed By: #### C MPX, CDP #### [facility] [address] [place] [address] [place] [address] [employer]: Souleymane Pineda MD Abs.Imm.Granulocyte 0.05 k/uL Normal 0.00-0.30 [facility] Comment on above: Performed By: #### C MPX, CDP #### [address] [place] [id number] [employer]: Souleymane Pineda MD Abs.Neutrophil (Seg) 4.78 k/uL Normal 1.50-8.10 [facility] Comment on above: Performed By: #### C MPX, CDP #### [address] [place] [address] [employer]: Souleymane Pineda MD Basophils/100 WBC (Bld) 0 % Normal 0-2 M [facility] Comment on above: Performed By: #### C MPX, CDP #### [address] [place], [facility]83 [employer]: Souleymane Pineda MD Eosinophils (Bld) [#/Vol] 0.44 10*3/uL Normal 0.00-0.44 [facility] Comment on above: Performed By: #### C MPX, CDP #### [facility] [address] [place], [facility]83 [employer]: Souleymane Pineda MD Eosinophils/100 WBC (Bld) 5 % High 1-4 [facility] Comment on above: Performed By: #### C MPX, CDP #### [facility] [address] [place] [address] [employer]: Souleymane Pineda MD Erythrocyte distribution width (RBC) [Ratio] 12.7 % Normal 11.8-14.4 [facility] Comment on above: Performed By: #### C MPX, CDP #### [facility] [address] [place] [address] Dr. [place], [facility]83 [employer]: Souleymane Pineda MD Hematocrit (Bld) [Volume fraction] 37.4 % Normal 36.3-47.1 [facility] Comment on above: Performed By: #### C MPX, CDP #### [facility] [address] [place] [address] Dr. [place], [facility]83 [employer]: Souleymane Pineda MD Hemoglobin (Bld) [Mass/Vol] 12.3 g/dL Normal 11.9-15.1 [facility] Comment on above: Performed By: #### C MPX, CDP #### [facility] [address] [place], [facility]83 [employer]: Souleymane Pineda MD Immature granulocytes/100 WBC (Bld) 1 % High 0 [facility] Comment on above: Performed By: #### C MPX, CDP #### [facility] [address] [place], [facility]83 [employer]: Souleymane Pineda MD Lymphocytes (Bld) [#/Vol] 2.48 10*3/uL Normal 1.10-3.70 [facility] Comment on above: Performed By: #### C MPX, CDP #### [address] [place], [place] [id number] [employer]: Souleymane Pineda MD Lymphocytes/100 WBC (Bld) 30 % Normal 24-43 [facility] Comment on above: Performed By: #### C MPX, CDP #### [address] [place], [place] [id number] [employer]: Souleymane Pineda MD MCH (RBC) [Entitic mass] 28.5 pg Normal 25.2-33.5 [facility] Comment on above: Performed By: #### C MPX, CDP #### [address] [place], [place] [id number] [employer]: Souleymane Pineda MD MCHC (RBC) [Mass/Vol] 32.9 g/dL Normal 28.4-34.8 [facility] Comment on above: Performed By: #### C MPX, CDP #### [address] [place], [place] [id number] [employer]: Souleymane Pineda MD MCV (RBC) [Entitic vol] 86.8 fL Normal 82.6-102.9 M [facility] Comment on above: Performed By: #### C MPX, CDP #### [address] [place], [place] [address]83 [employer]: Souleymane Pineda MD Monocytes (Bld) [#/Vol] 0.55 10*3/uL Normal 0.10-1.20 [facility] Comment on above: Performed By: #### C MPX, CDP #### [address] [place] [address] [employer]: Souleymane Pineda MD Monocytes/100 WBC (Bld) 7 % Normal 3-12 M [facility] Comment on above: Performed By: #### C MPX, CDP #### [facility] [address] [place], [place] [id number] [employer]: Souleymane Pineda MD Neutrophil (Seg) 57 % Normal 36-65 [facility] Comment on above: Performed By: #### C MPX, CDP #### [facility] [address] [place], [place] [id number] [employer]: Souleymane Pineda MD NRBC Automated 0.0 per 100 WBC Normal 0.0 [facility] Comment on above: Performed By: #### C MPX, CDP #### [facility] [address] [place], [place] [id number] [employer]: Souleymane Pineda MD Platelet mean volume (Bld) [Entitic vol] 9.4 fL Normal 8.1-13.5 [facility] Comment on above: Performed By: #### C MPX, CDP #### [address] [place], [place] [id number] [employer]: Souleymane Pineda MD Platelets (Bld) [#/Vol] 252 10*3/uL Normal 138-453 [facility] Comment on above: Performed By: #### C MPX, CDP #### [facility] [address] [place] [address] Dr. [place], [place] [id number] [employer]: Souleymane Pineda MD RBC (Bld) [#/Vol] 4.31 10*6/uL Normal 3.95-5.11 [facility] Comment on above: Performed By: #### C MPX, CDP #### [facility] [address] [place] [address] [employer]: Souleymane Pineda MD WBC (Bld) [#/Vol] 8.3 10*3/uL Normal 3.5-11.3 [facility] Comment on above: Performed By: #### C MPX, CDP #### [facility] [address] [place], [place] [id number] [employer]: Souleymane Pineda MD Auto Diff Performed NOT REPORTED Normal [facility] Comment on above: Performed By: #### C MPX, CDP #### [facility] [address] [place], [place] [id number] [employer]: Souleymane Pineda MD Platelet Comment NOT REPORTED Normal [facility] Comment on above: Performed By: #### C MPX, CDP #### [facility] [address] [place], [place] [phone] [employer]: Souleymane Pineda MD RBC morphology finding Nom (Bld) NOT REPORTED Normal [facility] Comment on above: Performed By: #### C MPX, CDP #### [facility] [address] [place], [place] [id number] [employer]: Souleymane Pineda MD WBC Morphology NOT REPORTED Normal [facility] Comment on above: Performed By: #### C MPX, CDP #### [facility] [address] [place] [address] [place] [address] [employer]: Souleymane Pineda MD CT HEAD WO CONTRASTon [...] the orbits demonstrate no acute abnormality. SINUSES: Vkbl-[id number] paranasal sinus mucosal thickening. SOFT TISSUES/SKULL: No acute abnormality of the visualized skull or soft tissues. IMPRESSION: No acute intracranial abnormality. Interpreted by: Edwin Bentley MD Signed by: Edwin Bentley MD 12/24/20 Final result Normal [facility] CT Head WO ContrastOrdered B y: Vielka Ching on 12-24-2020 No acute intracranial abnormality. [employer] Phone: EXAMINATION: CT OF THE HEAD WITHOUT [...] the orbits demonstrate no acute abnormality. SINUSES: Pryt-kk-vbqowabp paranasal sinus mucosal thickening. SOFT TISSUES/SKULL: No acute abnormality of the visualized skull or soft tissues. [employer] Phone: Dimitri, [facility] Incoming Radiant Results From [employer] - 12/24/2020 8:49 PM EDT EXAMINATION: CT [...] the orbits demonstrate no acute abnormality. SINUSES: Yyfi-nk-[id number] paranasal sinus mucosal thickening. SOFT TISSUES/SKULL: No acute abnormality of the visualized skull or soft tissues. IMPRESSION: No acute intracranial abnormality. [facility] Work Phone: [facility] Work Phone: Comp Metabolic Pr/rfx MGon 1 02-24-2020 Bilirubin [Mass/Vol] mg/dL Low 0.3-1.2 [facility] Comment on above: Performed By: #### C RONNX, CDP #### [address] [place] [address] [employer]: Souleymane Pineda MD (cont.) Normal [facility] Comment on above: Result Comment: Aver age GFR for 20-29 years old: 116 mL/min/1.73sq m Chronic Kidney Disease: <60 mL/min/1.73sq m Kidney failure: <15 mL/min/1.73sq m eGFR calculated using average adult body mass. Additional eGFR calculator available at: http://[email or web address].RE2/multiple_crcl_2012.htm Performed By: #### C JULIA, CDP #### [address] [place] [address] [employer]: Souleymane Pineda MD Albumin [Mass/Vol] 4.0 g/dL Normal 3.5-5.2 [facility] Comment on above: Performed By: #### C RONNX, CDP #### [facility] [address] [place] [address] [employer]: Souleymane Pineda MD Albumin/Glob Ratio 1.5 Normal 1.0-2.5 [facility] Comment on above: Performed By: #### C MPX, CDP #### [facility] [address] [place], [place] [id number] [employer]: Souleymane Pineda MD Alkaline Phos 90 U/L Normal 35-104 [facility] Comment on above: Performed By: #### C MPX, CDP #### [facility] [address] [place], [place] [phone] [employer]: Souleymane Pineda MD ALT [Catalytic activity/Vol] 40 U/L High 5-33 [facility] Comment on above: Performed By: #### C MPX, CDP #### [facility] [address] [place], [place] [address]83 [employer]: Souleymane Pineda MD Anion gap [Moles/Vol] 11 mmol/L Normal 9-17 [facility] Comment on above: Performed By: #### C MPX, CDP #### [facility] [address] [place], [place] [phone] [employer]: Souleymane Pineda MD AST [Catalytic activity/Vol] 19 U/L Normal <32 [facility] Comment on above: Performed By: #### C MPX, CDP #### [facility] [address] [place], [place] [id number] [employer]: Souleymane Pineda MD BUN/CRE Ratio 15 Normal 9-20 [facility] Comment on above: Performed By: #### C MPX, CDP #### [facility] [address] [place], [place] [id number] Automotive Light Mechanic: Souleymane Pineda MD Calcium [Mass/Vol] 8.9 mg/dL Normal 8.6-10.4 [facility] Comment on above: Performed By: #### C MPX, CDP #### [facility] [address] [place], [place] [id number] [employer]otive Light Mechanic: Souleymane Pineda MD Chloride [Moles/Vol] 104 mmol/L Normal 98-107 [facility] Comment on above: Performed By: #### C MPX, CDP #### [facility] [address] [place], [place] [id number] Automotive Light Mechanic: Souleymane Pineda MD CO2 [Moles/Vol] 24 mmol/L Normal 20-31 [facility] Comment on above: Performed By: #### C MPX, CDP #### [facility] [address] [place], [place] [id number] Automotive Light Mechanic: Souleymane Pineda MD Creatinine [Mass/Vol] 0.60 mg/dL Normal 0.50-0.90 [facility] Comment on above: Performed By: #### C MPX, CDP #### [facility] [address] [place], [place] [id number] Automotive Light Mechanic: Souleymane Pineda MD GFR, Amer >60 Normal >60 [facility] Comment on above: Performed By: #### C MPX, CDP #### [facility] [address] [place], [place] [id number] Automotive Light Mechanic: Souleymane Pineda MD GFR,non Amer >60 Normal >60 [facility] Comment on above: Performed By: #### C MPX, CDP #### [facility] [address] [place], [place] [id number] Automotive Light Mechanic: Souleymane Pineda MD Glucose [Mass/Vol] 91 mg/dL Normal 70-99 [facility] Comment on above: Performed By: #### C MPX, CDP #### [facility] [address] [place], [place] [id number] Automotive Light Mechanic: Souleymane Pineda MD Potassium [Moles/Vol] 4.0 mmol/L Normal 3.7-5.3 [facility] Comment on above: Performed By: #### C MPX, CDP #### [facility] [address] [place], [place] [id number] Automotive Light Mechanic: Souleymane Pineda MD Protein [Mass/Vol] 6.7 g/dL Normal 6.4-8.3 [facility] Comment on above: Performed By: #### C MPX, CDP #### [facility] [address] [place] [address] Automotive Light Mechanic: Souleymane Pineda MD Sodium [Moles/Vol] 139 mmol/L Normal 135-144 [facility] Comment on above: Performed By: #### C MPX, CDP #### [facility] [address] [place] [address] Automotive Light Mechanic: Souleymane Pineda MD Staging: Normal [facility] Comment on above: Result Comment: Stag e 1: Some kidney damage normal GFR Stage 2: Mild kidney damage GFR 60-89 Stage 3: Moderate kidney damage GFR 30-59 Stage 4: Severe kidney damage GFR 15-29 Stage 5: Severe kidney damage GFR <15 ESRD - chronic treatment by dialysis or transplant Performed By: #### C MPX, CDP #### [facility] [address] [place], [place] [id number] Automotive Light Mechanic: Souleymane Pineda MD Urea nitrogen [Mass/Vol] 9 mg/dL Normal 6-20 [facility] Comment on above: Performed By: #### C MPX, CDP #### [facility] [address] [place] [address] Automotive Light Mechanic: Souleymane Pineda MD Comprehensive Metabolic Pane l w/ Reflex to MGOrdered By: Vielka Ching on 12-24-2020 Albumin [Mass/Vol] 4 g/dL 3.5 - 5.2 g/dL [facility] Work Phone: Albumin/Globulin [Mass ratio] 1.5 {ratio} [facility] [employer] Phone: ALP (Bld) [Catalytic activity/Vol] 90 U/L 35 - 104 U/L [facility] Work Phone: ALT [Catalytic activity/Vol] 40 U/L High 5 - 33 U/L [employer] Phone: Anion gap [Moles/Vol] 11 mmol/L 9 - 17 mmol/L [employer] Phone: AST [Catalytic activity/Vol] 19 U/L <32 [employer] Phone: Bilirubin [Mass/Vol] mg/dL Low 0.3 - 1 .2 mg/dL [employer] Phone: Calcium [Mass/Vol] 8.9 mg/dL 8.6 - 10. 4 mg/dL [employer] Phone: Chloride [Moles/Vol] 104 mmol/L 98 - 10 7 mmol/L [employer] Phone: CO2 [Moles/Vol] 24 mmol/L 20 - 31 mmol/L [employer] Phone: Creatinine [Mass/Vol] 0.6 mg/dL 0.50 - 0.90 mg/dL [employer] Phone: Free PSA/Total PSA [Mass fraction] 6.7 g/dL 6.4 - 8.3 g/dL [employer] Phone: GFR >60 >60 mL/min [employer] Phone: GFR Non- >60 >60 mL/min [employer] Phone: Glucose [Mass/Vol] 91 mg/dL 70 - 99 mg/dL [employer] Phone: Interpretation and review of laboratory results Abnormal [employer] Phone: Potassium [Moles/Vol] 4.0 mmol/L 3.7 - 5.3 mmol/L [employer] Phone: Sodium [Moles/Vol] 139 mmol/L 135 - 144 mmol/L [employer] Phone: Urea nitrogen (BldV) [Mass/Vol] 9 mg/dL 6 - 20 mg/dL [employer] Work Phone: Urea nitrogen/Creatinine (Bld) [Mass ratio] 15 [employer] Work Phone: [facility] Work Phone: Laboratory - Chemistry and C hemistry - challengeOrdered By: Vielka Ching on 12-24-2020 GFR/1.73 sq M.predicted MDRD (S/P/Bld) [Vol rate/Area] [facility] Work Phone: Comment on above: Average GFR for 20-2 9 years old: 116 mL/min/1.73sq m Chronic Kidney Disease: <60 mL/min/1.73sq m Kidney failure: <15 mL/min/1.73sq m eGFR calculated using average adult body mass. Additional eGFR calculator available at: http://www.[employer]/multiple_crcl_2012.htm Stage 1: Some kidney damage normal GFR [...] pressure 63 mm[Hg] Infusion 8 Work Phone: [facility] 11-11-2022 10:55-0400 Heart rate 83 /min Infusion 8 Work Phone: [facility] 11-11-2022 10:55-0400 Systolic blood pressure 110 mm[Hg] Infusion 8 Work Phone: [facility] 07-28-2022 10:15-0400 Diastolic blood pressure 50 mm[Hg] Infusion 8 Work Phone: [facility] 07-28-2022 10:15-0400 Heart rate 80 /min Infusion 8 Work Phone: [facility] 07-28-2022 10:15-0400 Systolic blood pressure 105 mm[Hg] Infusion 8 Work Phone: [facility] 12-03-2021 09:47-0400 Diastolic blood pressure 81 mm[Hg] Jesse Salima Work Phone: [facility] 12-03-2021 09:47-0400 Heart rate 66 /min Jesse Salima Work Phone: [facility] 12-03-2021 09:47-0400 SaO2% (BldA) [Mass fraction] 100 % Jesse Salima Work Phone: [facility] 12-03-2021 09:47-0400 Systolic blood pressure 131 mm[Hg] Jesse Borrego Work Phone: [facility] 10-20-2021 12:00-0400 Diastolic blood pressure 101 mm[Hg] Lucila Mota MD Work Phone: [facility] [employer] 10-20-2021 12:00-0400 Heart rate 85 /min Lucila Mota MD Work Phone: [facility] [employer] 10-20-2021 12:00-0400 Respiratory rate 12 /min Lucila Mota MD Work Phone: [facility] [employer] 10-20-2021 12:00-0400 SaO2% (BldA) [Mass fraction] 98 % Lucila Mota MD Work Phone: [facility] [employer] 10-20-2021 12:00-0400 Systolic blood pressure 136 mm[Hg] Lucila Mota MD Work Phone: [facility] [employer] 10-20-2021 08:00-0400 Body temperature 98.2 [degF] Lucila Mota MD Work Phone: [facility] [employer] 12-24-2020 19:36-0400 Body temperature 99 [degF] Vielka Ching DO Work Phone: [employer] Work Phone: 12-24-2020 19:36-0400 Diastolic blood pressure 80 mm[Hg] Vielka Ching DO Work Phone: [employer] Work Phone: 12-24-2020 19:36-0400 Heart rate 108 /min Vielka Ching DO Work Phone: [employer] Work Phone: 12-24-2020 19:36-0400 Respiratory rate 20 /min Vielka Ching DO Work Phone: [employer] Work Phone: 12-24-2020 19:36-0400 SaO2% (BldA) [Mass fraction] 96 % Vielka Ching DO Work Phone: [employer] Work Phone: 12-24-2020 19:36-0400 Systolic blood pressure 136 mm[Hg] Vielka Ching DO Work Phone: [employer] Work Phone: Encounters Encounter Date Encounter Type Care Provider Facility Start: 03-07-2023 End: 03-07-2023 ambulatory ZAY LEONARDO Not Available Start: 02-07-2023 End: 02-07-2023 ambulatory ZAY LEONARDO Not Available Start: 01-26-2023 End: 01-26-2023 ambulatory ZAY LEONARDO Not Available Start: 12-13-2022 Refill Logan Barth APR N.PUBLIC RELATIONS SUPERVISOR Work Phone: Neurology Headache [facility] Comment on above: Refill Request Infusion (HEADACHE I NFUSIONS) Start: 12-12-2022 End: 12-12-2022 ambulatory LOGAN BARTH Facility:[facility] Start: 12-09-2022 Refill Ольга Cardona er FINISHING LAB TECHNICIAN.PUBLIC RELATIONS SUPERVISOR Work Phone: Neurology Comment on above: Refill Request Start: 12-02-2022 ambulatory Ramsey Nunn acility:[facility] Start: 11-11-2022 End: 11-11-2022 ambulatory Infusion Main Chair 8 Work Phone: Neurology Comment on above: 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 with status migrainosus (Primary Dx) Start: 11-10-2022 End: 11-10-2022 ambulatory ОЛЬГА AGUILAR Facility:[facility] Start: 11-10-2022 End: 11-10-2022 ambulatory Ольга Aguilar FINISHING LAB TECHNICIAN.PUBLIC RELATIONS SUPERVISOR Work Phone: Neurology Comment on above: 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 with status migrainosus (Primary Dx) Nerve block Start: 11-10-2022 Telephone encounter Suzan dinero APRN.PUBLIC RELATIONS SUPERVISOR Work Phone: Neurology Comment on above: Infusion Start: 11-10-2022 End: 11-10-2022 Telemedicine consultation with patient Ольга Aguilar FINISHING LAB TECHNICIAN.PUBLIC RELATIONS SUPERVISOR Work Phone: [facility] Start: 10-12-2022 End: 10-12-2022 ambulatory Suzan Driver APRN.PUBLIC RELATIONS SUPERVISOR Work Phone: Neurology Comment on above: Botox Start: 10-12-2022 E-mail encounter fro m caregiver Suzan Uche HECK.PUBLIC RELATIONS SUPERVISOR Work Phone: [facility] Start: 09-29-2022 Telephone encounter Angely rousseau RN Work Phone: [facility] Comment on above: Insurance Authorizat ion (Zomig 5MG nasal spray/) Start: 09-27-2022 ambulatory Logan Barth APR N.PUBLIC RELATIONS SUPERVISOR Work Phone: NEUR HEADACHE [facility] Comment on above: My apt Monday Start: 09-16-2022 ambulatory Logan Barth APR N.PUBLIC RELATIONS SUPERVISOR Work Phone: [facility] Start: 09-16-2022 Patient encounter procedure Logan Barth FINISHING LAB TECHNICIAN.PUBLIC RELATIONS SUPERVISOR Work Phone: [facility]UR [facility] Comment on above: Appointment Start: 09-12-2022 End: 09-12-2022 ambulatory LOGAN BARTH Facility:[facility] Start: 08-31-2022 End: 08-31-2022 ambulatory LOGAN BARTH Facility:[facility] Start: 08-31-2022 End: 08-31-2022 ambulatory Logan Barth FINISHING LAB TECHNICIAN.PUBLIC RELATIONS SUPERVISOR Work Phone: Neurology Comment on above: Chronic migraine w/o aura, not intractable, w/o stat migr (Primary Dx) Start: 08-31-2022 End: 08-31-2022 Telemedicine consultation with patient Logan Barth APRN.PUBLIC RELATIONS SUPERVISOR Work Phone: [facility] Start: 08-09-2022 ambulatory Logan Barth APR N.PUBLIC RELATIONS SUPERVISOR Work Phone: NEUR [facility]AC[facility] Comment on above: Pain Start: 08-08-2022 End: 08-08-2022 ambulatory Jesse Borrego MD Work Phone: Neurology Comment on above: 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 with status migrainosus (Primary Dx) Start: 08-08-2022 End: 08-08-2022 Telemedicine consultation with patient Jesse Borrego MD Work Phone: [facility] Start: 08-07-2022 ambulatory Jesse rick MD Work Phone: Neurology Comment on above: Name of medication Start: 07-29-2022 End: 07-29-2022 ambulatory MARIA DEL ROSARIO HAHN Facility:[facility] Start: 07-28-2022 End: 07-28-2022 ambulatory MARIA DEL ROSARIO HAHN Facility:[facility] Start: 07-28-2022 End: 07-28-2022 ambulatory Infusion Main Chair 8 Work Phone: Neurology Comment on above: 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 with status migrainosus (Primary Dx) Start: 07-27-2022 End: 07-27-2022 ambulatory MARIA DEL ROSARIO HAHN Facility:[facility] Start: 07-21-[address] ZAY BLAS . Facili ty:[facility] Start: 07-14-2022 Encounter for other preprocedural examination DR ZAY BLAS . [facility] Start: 07-12-2022 End: 07-13-[address] ZAY BLAS . Facility:[facility] Start: 07-12-2022 End: 07-13-2022 Encounter for other preprocedural examination DR ZAY BLAS . Facility:[facility] Start: 07-05-2022 ambulatory KRISTOFER Nunn acility:[facility] Start: 06-27-2022 Telephone encounter Logan Barth FINISHING LAB TECHNICIAN.PUBLIC RELATIONS SUPERVISOR Work Phone: Neurology Comment on above: Appointment (infusio n) Start: 06-24-2022 End: 06-24-2022 ambulatory LOGAN BARTH Facility:[facility] Start: 06-20-2022 End: 06-20-2022 ambulatory MANJINDER [...] Evaluation and management of inpatient DINORAH IVY Facility:[facility] Start: 03-31-2022 End: 04-01-[address] [...] with patient Nelly Saldaña KRISTOFER Work Phone: [facility] Start: 11-09-2021 ambulatory Tyrone Dolan MD, PhD Work Phone: [facility] Start: 11-09-2021 Patient encounter procedure Tyrone Dolan MD, PhD Work Phone: Neurology Comment on above: Request Didi castaneda tment Start: 11-08-2021 ambulatory Tyrone Dolan MD, PhD Work Phone: [facility] Start: 11-08-2021 Patient encounter procedure Tyrone Dolan MD, PhD Work Phone: Neurology Comment on above: Appointment Start: 11-08-2021 Telephone encounter Tyrone Dolan MD, PhD Work Phone: Neurology Comment on above: Orders Start: 11-04-2021 End: 11-04-2021 ambulatory MANJINDER KAMIAH Facility: Start: 10-29-2021 End: 10-29-2021 ambulatory Tyrone Dolan MD, PhD Work Phone: Neurology Comment on above: Psychogenic nonepile ptic seizure (Primary Dx); Spells of trembling; Chronic intractable headache, unspecified headache type Start: 10-29-2021 End: 10-29-2021 Telemedicine consultation with patient Tyrone Dolan MD, PhD Work Phone: [facility] Start: 10-26-2021 Patient encounter procedure Román Storey MD Work Phone: Neurology Comment on above: Seizure-like activit y (HCC) (Primary Dx) Start: 10-19-2021 End: 10-20-2021 Evaluation and management of inpatient [facility] Start: 10-19-2021 End: 10-20-2021 Evaluation and management of inpatient Lucila Mota MD Work Phone: [facility] Start: 10-19-2021 End: 10-19-2021 ambulatory SHAIKH Joseph ISRAELRACHELKishan Facility:[facility] Start: 10-07-2021 End: 10-07-[address] ZAY BLAS . Facility:[facility] Start: 10-06-2021 End: 10-06-2021 ambulatory SUKHDEEP Kishan MAURERMINOO Facility:[facility] Start: 10-03-2021 End: 10-04-2021 ambulatory MANJINDER DEAL Facility:[facility] Start: 10-01-2021 End: 10-02-2021 Evaluation and management of inpatient DR ANGÉLICA ARTHUR Facility:[facility] Start: 10-01-2021 Encounter for preprocedural laboratory examination DR ZAY BLAS . [facility] Start: 09-29-2021 End: 09-30-[address] ZAY [...] 12-24-2020 Emergency department patient visit ANGÉLICA ARTHUR [facility] Start: 12-24-2020 End: 12-24-2020 Emergency department patient visit Vielka Ching DO Work Phone: [facility] ED Comment on above: Migraine without sta [...] Start: 10-20-2021 EEG VIDEO MONITORING Marcy Perez FINISHING LAB TECHNICIAN [employer] Work Phone: Start: 10-20-2021 BASIC METABOLIC PANE L W/ REFLEX TO MG FOR LOW K Puri Rikki Mota MD Work Phone: Start: 10-20-2021 Blood count complete auto&auto difrntl wbc Lo Perez [facility] [employer] [facility] Work Phone: Start: 10-20-2021 IMMATURE PLATELET FRACTION Lo Perez [facility] [employer] [facility] Work Phone: Start: 10-19-2021 Assay of lactate Uday Perez [facility] [employer] Work Phone: Start: 10-19-2021 Ecg routine ecg w/le ast 12 lds w/i&r Lo Perez [facility] [employer] [facility] Work Phone: Start: 10-19-2021 Mri brain brain stem w/o w/contrast material Lo Perez FINISHING LAB TECHNICIAN [employer] [facility] Work Phone: Start: 10-19-2021 RESPIRATORY CARE EVALUATION ONLY Lo Perez FINISHING LAB TECHNICIAN [employer] [facility] Work Phone: Start: 10-01-2021 Resection of [...] DTaP/Tdap/Td vaccine (7 - Td or Tdap) [facility] Start: 09-20-2025 Urine microalbumin profile DTaP,Tdap,Td Vaccine (7 - Td or Tdap) [facility] Start: 10-29-2022 Adult depression screening assessment DEPRESSION SCREENING [facility] Start: 10-21-2022 Influenza vaccination [facility] Start: 02-20-2022 DEPRESSION ASSESSMENT DEPRESSION ASS [facility] Start: 10-26-2021 End: 10-26-2022 SARS-CoV-2 (COVID-19) RNA [Presence] in Respiratory specimen by SAURABH with probe detection PRE-PROCEDURE & PRE-OPERATIVE COVID Microbiology Routine Seizure-like activity (HCC) Expected: 10/26/2021, Expires: 10/26/2022 [facility] Work Phone: Comment on above: Expected: 10/26/2021 , Expires: 10/26/2022 Start: 10-21-2021 Influenza vaccination B [facility] [employer] Start: 02-20-2021 DEPRESSION ASSESSMENT DEPRESSION ASS [facility] Start: 10-21-2020 Influenza vaccination Flu vaccine (# 1) [employer] Phone: Start: 11-13-2016 PAP TESTING PAP TESTING [facility] Start: 11-13-2016 Screening for malign ant neoplasm of cervix Pap smear [facility] Start: 11-13-2014 Urine microalbumin profile [facility] Start: 11-13-2013 Hepatitis C screening Hepatitis C [facility] Start: 11-13-2013 HEPATITIS C SCREENING HEPATITIS C [facility] Start: 11-13-2013 HIV SCREENING HIV SCREENING [facility] Start: 2011 Screening for Chlamy rose trachomatis Chlamydia screen [facility] Start: 11-13-2010 HIV screening HIV screen [facility] [employer] [facility] [facility] [employer] Start: 11-13-2009 PEDS TO ADULT TRANSITION ANNUAL ASSESSMENT PEDS TO ADULT TRANSITION ANNUAL ASSESSMENT [facility] Start: 2007 Adult depression screening assessment DEPRESSION SCREENING [facility] Start: 2007 COVID-19 Vaccine (1) COVID-19 Vaccin e (1) [employer] Phone: Start: 2007 Depression Screen Depression Screen [facility] Start: 2007 PEDS TO ADULT TRANSITION INITIAL DISCUSSION PEDS TO ADULT TRANSITION INITIAL DISCUSSION [facility] Start: 11-13-2006 HPV VACCINE (1 - 2-d ose series) HPV VACCINE (1 - 2-dose series) [facility] Start: 11-13-2004 HPV VACCINE (1 - 2-d ose series) HPV VACCINE (1 - 2-dose series) [facility] Start: 05-13-1996 COVID-19 Vaccine (#1) COVID-19 Vacci ne (#1) [facility] Start: 1995 HEPATITIS B (1 of 3 - 3-dose series) HEPATITIS B (1 of 3 - 3-dose series) [facility] Start: 1995 Hepatitis B Vaccine (1 of 3 - 3-dose series) Hepatitis B Vaccine (1 of 3 - 3-dose series) [facility] Start: 1995 Hepatitis C screening Hepatitis C [facility] [employer] Phone: End: 10-26-2021 Basic Metabolic Panel w/ Reflex to MG Basic Metabolic Panel w/ Reflex to MG Lab Routine Daily for 7 Days starting 10/20/2021 until 10/26/2021 [employer] Phone: Comment on above: Daily for 7 Days sta rting 10/20/2021 until 10/26/2021 End: 10-26-2021 CBC W Auto Differential panel - Blood CBC with Auto Differential Lab Routine Daily for 7 Days starting 10/20/2021 until 10/26/2021, 1 completed [employer] Phone: Comment on above: Daily for 7 Days sta rting 10/20/2021 until 10/26/2021, 1 completed EKG 12 Lead EKG 12 Lead ECG Routine 10/19/2021 5:55 PM EDT [employer] Phone: End: 10-29-2022 EPIL AMBULATORY EEG EPIL AMBULATORY EEG NEUROLOGY Routine Psychogenic nonepileptic seizure Spells of trembling 1 Occurrences starting 10/29/2021 until 10/29/2022 [facility] Work Phone: Comment on above: 1 Occurrences starti ng 10/29/2021 until 10/29/2022 End: 10-26-2022 EPIL EEG LEAD PLACEMENT EPIL EEG LEAD PLACEMENT NEUROLOGY Routine Seizure-like activity (HCC) 1 Occurrences starting 10/26/2021 until 10/26/2022 [facility] Work Phone: Comment on above: 1 Occurrences starti ng 10/26/2021 until 10/26/2022 End: 11-08-2022 EPIL EEG ROUTINE EPIL EEG ROUTINE NEUROLOGY Routine Seizure-like activity (HCC) 1 Occurrences starting 11/08/2021 until 11/08/2022 [facility] Work Phone: Comment on above: 1 Occurrences starti ng 11/08/2021 until 11/08/2022 EPIL VEEG ADMIT TO EMU/PMU EPIL VEEG ADMIT TO EMU/PMU NEUROLOGY Routine Seizure-like activity (HCC) Ordered: 10/26/2021 [facility] Work Phone: Comment on above: Ordered: 10/26/2021 Oxygen therapy [[facility] Data Set] Initiate Oxygen Therapy Protocol Respiratory Care Routine As Needed until discontinued starting 10/19/2021 [facility] Work Phone: Comment on above: As Needed until disc ontinued starting 10/19/2021 [facility] c [facility] Immunizations Immunization Date Immunization Notes Care Provider Israel black 12-08-2017 influenza virus vacc ine, unspecified formulation Suzan Driver APRN.PUBLIC RELATIONS SUPERVISOR Work Phone: [facility] Payers Date Payer Category Payer Self-pay 2017 Medicaid [place] [employer] [place] [employer] [id number] 2017-Present Medicaid [id number] 2013 Medicaid [id number] 2011 Unknown 1995 Unknown [id number] 2.16.840.1.312225.3.579.2.173 1995 Unknown [id number] 2.16.840.1.724109.3.579.2.175 1995 Unknown [id number] 2.16.840.1.500462.3.579.2.727 1995 Unknown [id number] 2.16.840.1.410825.3.579.2.593 1995 Unknown [id number] 2.16.840.1.099199.3.579.2.593 1995 Unknown [id number] 2.16.840.1.113971.3.579.2.593 1995 Unknown [id number] 2.16.840.1.899081.3.579.2.593 1995 Unknown [id number] 2.16.840.1.874657.3.579.2.593 1995 Unknown [id number] 2.16.840.1.005171.3.579.2.593 1995 Unknown [id number] 2.16.840.1.862071.3.579.2.593 1995 Unknown [id number] 2.16.840.1.664867.3.579.2.593 1995 Unknown [id number] 2.16.840.1.772235.3.579.2.593 1995 Unknown [id number] 2.16.840.1.903240.3.579.2.593 1995 Unknown [id number] 2.16.840.1.270696.3.579.2.593 1995 Unknown [id number] 2.16.840.1.569413.3.579.2.593 1995 Unknown [id number] 2.16.840.1.021223.3.579.2.593 1995 Unknown [id number] 2.16.840.1.200426.3.579.2.593 1995 Unknown [id number] 2.16.840.1.302592.3.579.2.593 1995 Unknown [id number] 2.16.840.1.842714.3.579.2.593 1995 Unknown [id number] 2.16.840.1.624444.3.579.2.593 1995 Unknown [id number] 2.16.840.1.306275.3.579.2.593 1995 Unknown [id number] 2.16.840.1.834789.3.579.2.593 1995 Unknown [id number] 2.16.840.1.364873.3.579.2.593 1995 Unknown [id number] 2.16.840.1.075713.3.579.2.593 1995 Unknown [id number] 2.16.840.1.674782.3.579.2.593 1995 Unknown [id number] 2.16.840.1.253773.3.579.2.1259 1995 Unknown [id number] 2.16.840.1.829691.3.579.2.1259 1995 Unknown [id number] 2.16.840.1.271201.3.579.2.1259 1959 Unknown [id number] [id number].3.6 [id number] Social History Date Type Detail Facility Tobacco smoking stat [facility] Unknown if ever smoked [facility] Start: 1995 Sex Assigned At Not on file [facility] Start: 12-24-2020 End: 10-12-2022 Tobacco smoking status UTIS Never smoker [employer] Phone: Start: 12-24-2020 End: 10-12-2022 Tobacco use and exposure Never used [employer] Start: 12-24-2020 Alcohol intake Ex-drinker (finding) [employer] Work Phone: Start: 10-16-2021 End: 07-28-2022 Exposure to SARS-CoV-2 (event) Not sure [employer] Tobacco smoking stat us [facility] Tobacco smoking consumption unknown [facility] Work Phone: Start: 06-23-2022 End: 08-08-2022 History of Social function [facility] Start: 06-23-2022 End: 08-08-2022 Patient Health Questionnaire 2 item (PHQ-2) [Reported] [facility] Adult Depression Screening Assessment 2 [facility] Clinical Notes 12-24-2020 to 12-13-2022 Telephone [...] thank you. KG documented in this encounter [facility] 12-13-2022 Miscellaneous Notes PA submitted through CoverMyMeds for Orphenadrine Citrate ER 100mg. Cohen Code: [id number] documented in this encounter [facility] 12-12-2022 Note HNO ID: [id number] Author: Logan Barth APRN.CNP Service: ? Author [...] visit. Either the patient or their legal school admissions representative has been informed of the risks [...] XL, Qudexy) Anti-Depressant and Antipsychotic Amitriptyline (Elavil) Marie (Eskalith, Lithobid) Nortriptyline (Pamelor, Aventyl) Anti-Migraine Dihydroergotamine [...] ZOLMitriptan (ZOMIG) 5 mg nasal sprayUse 1 [place] in the nose as needed at onset of migraine headache. If symptoms persist or return, may repeat dose in other nostril after 2 hours. Maximum of 2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 [facility] 10-29-2021 History of Presen t illness Narrative [facility] Patient Name: Margaret Nicholson Date [...] complains memory issues/vision issues. OSH admission documentation ([facility] [place]) ADMISSION DATE: 10/19/21 DISCHARGE DATE: 10/20/21 Patient was hooked up to [facility]ci video EEG monitoring or LTME. Overnight, patient [...] Dolan MD PhD Staff, Epilepsy [facility] [place], [place] Primary Care Physician: Maria Del Rosario Lynn (Historical) Jose Antonio (Inactive) No address on file Referring Physician: SELF Ms. Margaret Nicholson [address] [facility] [address] documented in this encounter [facility] 10-26-2021 History of Presen t illness Narrative [facility] Review of Records Patient: Margaret Nicholson Address: [address] [place] [id number] Impression: Review of records for Margaret Nicholson, [...] cholecystectomy, caesarean , tubal ligation PRIOR EVALUATIONS: [place] [address] Video EEG ([facility], 10/19/2021-10/20/2021): Normal continuous video-EEG. The events that were captured did not correlate with epileptic seizures. No epileptiform discharges were identified. MRI brain wo/w contrast ([facility], 10/19/2021): Unremarkable MRI of the brain ANDRZEJ Recommendations: - Admit to EMU for VEEG monitoring, diagnostic evaluation Location: [facility] [place] - Visit with epileptologist prior to admission - Additional testing to be considered by epilepsy clinicians Signed: Geri Madera APRN.PUBLIC RELATIONS SUPERVISOR October 26, [address] Storey for review and recommendations. --------- MD Recommendations (as discussed with Dr. Storey): - Please proceed with the above plan. Please route this encounter to the EMU Scheduling Pool ( P EMU ) or PMU Scheduling Pool ( P PMU ) through LOS & Follow up PHASE 1.0 AND 1.5 ORDER SYNOPSIS Patient: Margaret Nicholson ([id number]) Best contact number: [phone] Insurance: No coverage found. Scheduling Team: Please call for adult patients: Mendoza Torres ([phone]) Chucky Cantor ([phone]) Fabiola Sharpe([phone]) Nikkie Mahajan([phone]) Please call for pediatric patients: Chucky Cantor ([phone]) Fabiola Sharpe ([phone]) Mendoza Torres ([phone]) Nikkie Mahajan([phone]) Appointments and Tests PRE-PROCEDURE & PRE-OPERATIVE COVID ([facility] COVID PRE-PROCEDURE TESTING PANEL) EPIL EEG LEAD PLACEMENT EPIL VEEG ADMIT TO EMU/PMU Consultations None Please route this encounter to the EMU Scheduling pool ( P EMU ) or PMU Scheduling pool ( P PMU ) through LOS & Follow up Scheduling coordinators: For all VNS patients being scheduled for JESSY, please schedule VNS off/on office visits. documented in this encounter [facility] 10-20-2021 Hospital Discharg e UMANG Diaz [...] sent through Care Everywhere.Non-Epileptic Seizure: General Info (Irish)documented in this encounter JEREMIAH BURROWS [employer] Work Phone: 10-20-2021 History of Presen t [...] hysterectomy who presented as a transfer from [facility] for seizure like episodes. Per records, patient's boyfriend called EMS this morning as patient had multiple episodes of seizure like episodes. On EMS arrival, patient was laying in bed with violent 5 second full body tremors/convulsion like activity . Significant other had reported patient had 3 other episodes prior to their arrival. Per records, patient had another similar episode en route to [facility] ED. On arrival to [facility] ED, GCS 12. Per documentation, patient had at least 13 seizure like episodes, lasting 10-60 seconds, described as grand mal. She was given 10mg Valium IV, 1g Keppra IV, 720mg Phenobarbital IV. CT Head without contrast unremarkable. Labs unremarkable including normal TSH, lactic, negative UA. Transferred to [facility] Neuro ICU for further management. Per [...] brain mass recently (last 6 months) at [facility] and is supposed to have a brain biopsy in November 2021. Patient recently saw Dr. Vicky De Dios ([facility]) on 08/06/21 for migraines and seizures. [...] On arrival to the Neuro ICU, Adrienne (DYE ROOM HELPER) witnessed two brief (~10 seconds) episodes of [...] with patient and mom. Records requested from [facility] where patient states she was seen [...] (36.9 C) -- 78 13 97 % 10/19/211999 128/78 98.7 F (37.1 C) -- 80 [...] hysterectomy who presented as a transfer from [place] ED for seizure like episodes. NEUROLOGIC: - [...] patient status please contact Neuro Critical Care. Lo Perez APRN - [facility] Neuro Critical Care Pager [phone] 10/20/2021 6:49 AM ALTM is running. Pt [...] at 100%. documented in this encounter [employer] Phone: 10-01-2021 Note DISCHARGE SUMMARY DISCHARGE DATE: [...] pain free and no longer on narcotics. [facility] 10-01-2021 Note OPERATIVE NOTE OPERATION DATE: 10/01/2021 PROCEDURE: Total abdominal hysterectomy with partial bilateral salpingectomy with cystoscopy. PREOPERATIVE DIAGNOSIS: Menorrhagia, dysmenorrhea, dyspareunia, pelvic pain. POSTOPERATIVE DIAGNOSIS: Menorrhagia, dysmenorrhea, dyspareunia, pelvic pain. ANESTHESIA: General. SURGEON: Zay Blas D.O. FUR TRIMMER: VERNA Yap URINE OUTPUT: Yellow and clear. [...] Recovery Room in stable condition. ?? [facility] 08-14-2021 Note PROCEDURE: US PELVIS TRANSVAG, [...] authenticated by: NICOLE MEDELLIN Date: 2021-08-14 10:19 [facility] 12-24-2020 Hospital DischVielka Luis DO - 12/24/2020 Continue all home medications as prescribed. Follow up with your family doctor and neurologist. Return to the emergency department for new, worsening or worrisome symptoms. documented in this encounter [employer] Phone: Evaluation note Diagnosis Migraine without status migrainosus, not intractable, unspecified migraine type- Primary documented in this encounter [employer] Phone: evaluation note* Diagnosis Seizure-like activity (HCC)- Primary Other convulsions Seizure disorder (HCC) Unspecified epilepsy without mention of intractable epilepsy Psychogenic nonepileptic seizure documented in this encounter JEREMIAH BURROWS [employer] Phone: evaluation note* Diagnosis Seizure-like activity (HCC)- Primary Other convulsions [facility] Psychogenic nonepileptic seizure- Primary Spells of trembling Abnormal involuntary movements Chronic intractable headache, unspecified headache type [facility] Diagnosis Seizure-like activity (HCC)- Primary Other convulsions Psychogenic nonepileptic seizure [facility] Diagnosis Seizure-like activity (HCC)- Primary Other convulsions [facility] Diagnosis Chronic migraine w/o aura, not intractable, w/o stat migr- Primary [facility] Diagnosis 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 with status migrainosus- Primary Chronic migraine without aura, with intractable migraine, so stated, with status migrainosus [facility] Diagnosis 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 with status migrainosus- Primary Chronic migraine without aura, with intractable migraine, so stated, with status migrainosus [facility] Diagnosis Chronic migraine w/o aura, not intractable, w/o stat migr- Primary [facility] Diagnosis 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 with status migrainosus- Primary Chronic migraine without aura, with intractable migraine, so stated, with status migrainosus [facility] Diagnosis 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 with status migrainosus- Primary Chronic migraine without aura, with intractable migraine, so stated, with status migrainosus [facility] Chronic migraine w/o aura, not intractable, w/o stat migr Cervicalgia Migraine without aura and without status migrainosus, not intractable Migraine without aura, without mention of intractable migraine without mention of status migrainosus documented in this encounter [facility] for referral (narrative)* Outpatient Procedure (Routine) - Pending Review Specialty Diagnoses / Procedures Referred By Contac t Referred To [facility] Diagnoses Seizure-like activity (HCC) Procedures EPIL EEG LEAD PLACEMENT EEG EXTENDED MONITORING 61-119 MINUTES ELECTROENCEPHALOGRAM REC COMA/SLEEP ONLY Geri Madera APRN.CNP [address] [place] [address] [place] [address] Referral ID Status Reason Start Date Expiration Date Visits Requested Visits Authorized [id number] Pending Review Auto-Generat ed Referral 10/26/2021 10/26/2022 1 1 [facility] for referral (narrative)* Outpatient Procedure (Routine) - Pending Review Specialty Diagnoses / Procedures Referred By Sushma t Referred To [facility] Diagnoses Psychogenic nonepileptic seizure Spells of trembling Procedures EPIL AMBULATORY EEG EEG COMPLETE STD PHYS/QHP&GT;84 HR W/O Tyrone Diaz MD, PhD [address] [facility] [address] [place] [address] [facility] [address] [place], [place] [id number] Referral ID Status Reason Start Date Expiration Date Visits Requested Visits Authorized [id number] Pending Review Auto-Generat ed Referral 10/29/2021 10/29/2022 1 1 * Outpatient Procedure (Routine) - Pending Review Specialty Diagnoses / Procedures [facility] Diagnoses Psychogenic nonepileptic seizure Spells of trembling Procedures EPIL AMBULATORY EEG EEG COMPLETE STD PHYS/QHP&GT;84 HR W/O VID Tyrone Dolan MD, PhD [address] [facility] [place] [place] [address] [place] [address] Referral ID Status Reason Start Date Expiration Date Visits Requested Visits Authorized [id number] Pending Review Auto-Generat ed Referral 10/29/2021 10/29/2022 1 1 * Consult, Test, Treat (Routine) - Authorized Specialty Diagnoses / Procedures Referred By Contac t Referred To Contact Diagnoses Chronic intractable headache, unspecified headache type Procedures CONSULT TO HEADACHE CLINIC OFFICE/OUTPATIENT [facility] MDM 60-74 MINUTES Tyrone Dolan MD, PhD [address] [facility] [place] [address] Referral ID Status Reason Start Date Expiration Date Visits Requested Visits Authorized [id number] Authorized PCP Requested Referral 10/29/2021 10/29/2022 1 1 [facility] Procedure (Routine) - Pending Review Specialty Diagnoses / Procedures Referred By Contac t Referred [facility] Diagnoses Seizure-like activity (HCC) Procedures EPIL EEG ROUTINE ELECTROENCEPHALOGRAM REC COMA/SLEEP ONLY Nelly Saldaña PA-C [address] [place] [address] [place] [address] Referral ID Status Reason Start Date Expiration Date Visits Requested Visits Authorized [id number] Pending Review Auto-Generat ed Referral 11/08/2021 11/08/2022 1 1 [facility] Advance Directives No Advanced Directives Records FoundDocuments on File Type Date Recorded Patient Train Brakeman Expl anation ACP-Advance Directive ACP-Power of Cardiopulmonary Technician And Eeg Tech Latest Code Status on File Code Status [...] t Referred To Contact Samples, MD Jesse [address] [place] [address] Referral ID Status Reason Start Date Expiration Date Visits Re quested Visits Authorized [id number] Closed 1 1 Additional Source Comments Source Comments (unrecognize d section and content) In the event this informatio n is protected by the Federal Confidentiality of Alcohol and Drug Abuse Patient Records regulations: The Federal rules restrict any use of the information to criminally investigate or prosecute any alcohol or drug abuse patient.[facility] the event this information is protected by the Federal Confidentiality of Alcohol and Drug Abuse Patient Records regulations: The Federal rules restrict any use of the information to criminally investigate or prosecute any alcohol or drug abuse patient.[facility] the event this information is protected by the Federal Confidentiality of Alcohol and Drug Abuse Patient Records regulations: The Federal rules restrict any use of the information to criminally investigate or prosecute any alcohol or drug abuse patient.[facility] the event this information is protected by the Federal Confidentiality of Alcohol and Drug Abuse Patient Records regulations: The Federal rules restrict any use of the information to criminally investigate or prosecute any alcohol or drug abuse patient.[facility] the event this information is protected by the Federal Confidentiality of Alcohol and Drug Abuse Patient Records regulations: The Federal rules restrict any use of the information to criminally investigate or prosecute any alcohol or drug abuse patient.[facility] the event this information is protected by the Federal Confidentiality of Alcohol and Drug Abuse Patient Records regulations: The Federal rules restrict any use of the information to criminally investigate or prosecute any alcohol or drug abuse patient.[facility] the event this information is protected by the Federal Confidentiality of Alcohol and Drug Abuse Patient Records regulations: The Federal rules restrict any use of the information to criminally investigate or prosecute any alcohol or drug abuse patient.[facility] the event this information is protected by the Federal Confidentiality of Alcohol and Drug Abuse Patient Records regulations: The Federal rules restrict any use of the information to criminally investigate or prosecute any alcohol or drug abuse patient.[facility] the event this information is protected by the Federal Confidentiality of Alcohol and Drug Abuse Patient Records regulations: The Federal rules restrict any use of the information to criminally investigate or prosecute any alcohol or drug abuse patient.[facility] the event this information is protected by the Federal Confidentiality of Alcohol and Drug Abuse Patient Records regulations: The Federal rules restrict any use of the information to criminally investigate or prosecute any alcohol or drug abuse patient.[facility] the event this information is protected by the Federal Confidentiality of Alcohol and Drug Abuse Patient Records regulations: The Federal rules restrict any use of the information to criminally investigate or prosecute any alcohol or drug abuse patient.[facility] the event this information is protected by the Federal Confidentiality of Alcohol and Drug Abuse Patient Records regulations: The Federal rules restrict any use of the information to criminally investigate or prosecute any alcohol or drug abuse patient.[facility] the event this information is protected by the Federal Confidentiality of Alcohol and Drug Abuse Patient Records regulations: The Federal rules restrict any use of the information to criminally investigate or prosecute any alcohol or drug abuse patient.[facility] the event this information is protected by the Federal Confidentiality of Alcohol and Drug Abuse Patient Records regulations: The Federal rules restrict any use of the information to criminally investigate or prosecute any alcohol or drug abuse patient.[facility] the event this information is protected by the Federal Confidentiality of Alcohol and Drug Abuse Patient Records regulations: The Federal rules restrict any use of the information to criminally investigate or prosecute any alcohol or drug abuse patient.[facility] the event this information is protected by the Federal Confidentiality of Alcohol and Drug Abuse Patient Records regulations: The Federal rules restrict any use of the information to criminally investigate or prosecute any alcohol or drug abuse patient.[facility] the event this information is protected by the Federal Confidentiality of Alcohol and Drug Abuse Patient Records regulations: The Federal rules restrict any use of the information to criminally investigate or prosecute any alcohol or drug abuse patient.[facility] the event this information is protected by the Federal Confidentiality of Alcohol and Drug Abuse Patient Records regulations: The Federal rules restrict any use of the information to criminally investigate or prosecute any alcohol or drug abuse patient.[facility]In the event this information is protected by the Federal Confidentiality of Alcohol and Drug Abuse Patient Records regulations: The Federal rules restrict any use of the information to criminally investigate or prosecute any alcohol or drug abuse patient.[facility] the event this information is protected by the Federal Confidentiality of Alcohol and Drug Abuse Patient Records regulations: The Federal rules restrict any use of the information to criminally investigate or prosecute any alcohol or drug abuse patient.[facility]In the event this information is protected by the Federal Confidentiality of Alcohol and Drug Abuse Patient Records regulations: The Federal rules restrict any use of the information to criminally investigate or prosecute any alcohol or drug abuse patient.[facility]In the event this information is protected by the Federal Confidentiality of Alcohol and Drug Abuse Patient Records regulations: The Federal rules restrict any use of the information to criminally investigate or prosecute any alcohol or drug abuse patient.[facility]In the event this information is protected by the Federal Confidentiality of Alcohol and Drug Abuse Patient Records regulations: The Federal rules restrict any use of the information to criminally investigate or prosecute any alcohol or drug abuse patient.[facility]In the event this information is protected by the Federal Confidentiality of Alcohol and Drug Abuse Patient Records regulations: The Federal rules restrict any use of the information to criminally investigate or prosecute any alcohol or drug abuse patient.[facility]In the event this information is protected by the Federal Confidentiality of Alcohol and Drug Abuse Patient Records regulations: The Federal rules restrict any use of the information to criminally investigate or prosecute any alcohol or drug abuse patient.[facility]In the event this information is protected by the Federal Confidentiality of Alcohol and Drug Abuse Patient Records regulations: The Federal rules restrict any use of the information to criminally investigate or prosecute any alcohol or drug abuse patient.[facility]In the event this information is protected by the Federal Confidentiality of Alcohol and Drug Abuse Patient Records regulations: The Federal rules restrict any use of the information to criminally investigate or prosecute any alcohol or drug abuse patient.[facility]In the event this information is protected by the Federal Confidentiality of Alcohol and Drug Abuse Patient Records regulations: The Federal rules restrict any use of the information to criminally investigate or prosecute any alcohol or drug abuse patient.[facility] Reason for Visit (unrecogniz ed section and content) Reason Comments Future Appointment [place], [place], Any Reason Comments Migraine seen at [place] yest erday for Migrane and D & [...] Maria Del Rosario Hahn MD [address] [place] [address] Neur Headache Main [address] [place] [address] Referral ID Status Reason Start Date Expiration Date Visits Re quested Visits Authorized [id number] Closed 07/28/2022 09/26/2022 1 1 Reason Comments Chronic Migraine Reason Comments Chronic Migraine Reason Comments Insurance Authorization Zomig 5MG nasal spray Reason Comments Infusion Reason Comments Migraine Specialty Diagnoses / Procedures Referred By Contac t Referred To Contact Neurology / HEADACHE Diagnoses POSSIBLE DHE/WAITING FOR ORDERS Procedures INFUSION HEADACHE Self Neur Headache Main [address] [place] [address] Referral ID Status Reason Start Date Expiration Date V isits Requested Visits Authorized [id number] Authorized 11/10/2022 02/08/2023 1 99 Reason Onset [...] 1245, Until Discontinued, Indication of Use: Prophylaxis-DVT/PE 1831 (Given - Provider: Adrienne Stephens RN) 0834 (Given - Provider: Clementine Cm, PRATIBHA) lamoTRIgine (LAMICTAL) tablet 50 mg 50 mg, Oral, DAILY, First dose on Mon10/19/21 at 1445, Until Discontinued 1444 (Due) 08 (Given - Provider: Clementine Cm, PRATIBHA) lidocaine 4 % external patch 1 patch 1 patch, TransDERmal, Administer over 12 Hours, DAILY, First dose on Mon10/20/21 at 0900, Apply 1 skin 2 packs daily for 12 hours on, 12 hours off 833 (Patch Applied - Provider: Clementine Cm RN)2033 [...] 2044 (Given - Provider: Brittney Santana RN) 111 (Canceled Entry - Provider: Clementine Cm RN)2100 [...] section and content) DATE CREATED AUTHOR 12/26/2020 [facility] DATE CREATED AUTHOR AUTHOR'S ORGANIZ ATION 10/25/2021 [facility] DATE CREATED AUTHOR AUTHOR'S ORGANIZ ATION 05/26/2022 [facility] DATE CREATED AUTHOR AUTHOR'S ORGANIZ ATION 08/02/2022 [facility] DATE CREATED AUTHOR AUTHOR'S ORGANIZ ATION 03/01/2023 [facility] DATE CREATED AUTHOR AUTHOR'S ORGANIZ ATION 03/08/2023 [facility] DATE CREATED AUTHOR AUTHOR'S WOODROW ATION 03/11/2023 [facility] Ordered Prescriptions (unrec ognized section and content) Prescription Sig Dispensed Refills Start Date End Da te lamoTRIgine (LAMICTAL) 25 MG tablet Take 2 tablets by mouth daily 30 tablet 3 10/21/2021 Care Teams (unrecognized sec tion and content) Frame Polisher Relationship Specialty Start Date End Date Angélica Arthur, FINISHING LAB TECHNICIAN - PUBLIC RELATIONS SUPERVISOR [address] [place] [address] PCP - General Nurse Practitioner 12/24/20 Frame Polisher Relationship Specialty Start Date End Date Hoy, Maria Del Rosario M (Historical) PCP - General 05/21/13 Frame [employer] Relationship Specialty Start Date End Date Hoy, Maria Del Rosario M (Historical) PCP - General 05/21/13 Frame Polisher Relationship Specialty Start Date End Date Hoy, Maria Del Rosario M (Historical) PCP - General 05/21/13 Frame Polisher Relationship Specialty Start Date End Date Hoy, Maria Del Rosario M (Historical) PCP - General 05/21/13 Frame Polisher Relationship Specialty Start Date End Date Hoy, Maria Del Rosario M (Historical) PCP - General 05/21/13 Frame Polisher Relationship Specialty Start Date End Date Hoy, Maria Del Rosario M (Historical) PCP - General 05/21/13 Frame Polisher Relationship Specialty Start Date End Date Hoy, Maria Del Rosario M (Historical) PCP - General 05/21/13 Frame Polisher Relationship Specialty Start Date End Date Hoy, Maria Del Rosario M (Historical) PCP - General 05/21/13 Frame Polisher Relationship Specialty Start Date End Date Hoy, Maria Del Rosario M (Historical) PCP - General 05/21/13 Frame Polisher Relationship Specialty Start Date End Date Hoy, Maria Del Rosario M (Historical) PCP - General 05/21/13 Frame Polisher Relationship Specialty Start Date End Date Hoy, Maria Del Rosario M (Historical) PCP - General 05/21/13 Frame Polisher Relationship Specialty Start Date End Date Hoy, Maria Del Rosario M (Historical) PCP - General 05/21/13 Frame Polisher Relationship Specialty Start Date End Date Hoy, Maria Del Rosario M (Historical) PCP - General 05/21/13 Frame Polisher Relationship Specialty Start Date End Date Hoy, Maria Del Rosario M (Historical) PCP - General 05/21/13 Frame Polisher Relationship Specialty Start Date End Date Hoy, Maria Del Rosario M (Historical) PCP - General 05/21/13 Frame Polisher Relationship Specialty Start Date End Date Hoy, Maria Del Rosario M (Historical) PCP - General 05/21/13 Frame Polisher Relationship Specialty Start Date End Date Hoy, Maria Del Rosario M (Historical) PCP - General 05/21/13 Frame Polisher Relationship Specialty Start Date End Date Hoy, Maria Del Rosario M (Historical) PCP - General 05/21/13 Frame Polisher Relationship Specialty Start Date End Date Hoy, Maria Del Rosario M (Historical) PCP - General 05/21/13 Frame Polisher Relationship Specialty Start Date End Date Hoy, Maria Del Rosario M (Historical) PCP - General 05/21/13 Frame Polisher Relationship Specialty Start Date End Date Hoy, Maria Del Rosario M (Historical) PCP - General 05/21/13 Frame Polisher Relationship Specialty Start Date End Date Hoy, [...] BE BASED ON THE PRIMARY CLINICAL RECORDS. [facility]. provides no warranty or guarantee of the accuracy or completeness of information in this document.
--- NOTE | 2023-03-15 13:01 | ED.GENADUL1 ---
HPI - General Adult General Chief complaint: Headache Stated complaint: headache Time Seen by Provider: 03/15/23 11:26 Source: patient Mode of arrival: walk-in Limitations: no limitations History of Present Illness HPI narrative: Patient presenting to us with a headache she have history of multiple presentation with similar migraine symptoms there is no changes in her headache , she does have nausea and vomiting and also photosensitivity and she mentioned that she tried all her medication at home with no effect. The patient is coming to the ER requesting the cocktail that we give for migraine Related Data Home Medications Medication Instructions Recorded Confirmed baclofen 10 mg tablet 10 mg PO TID spasms 07/20/22 03/03/23 diazepam 10 mg tablet 10 mg PO BID 07/20/22 03/03/23 epinephrine 0.3 mg/0.3 mL 0.3 mg IM Q10M PRN anaphylaxis 07/20/22 03/03/23 injection, auto-injector estradiol 0.5 mg tablet 0.5 mg PO QAM 01/06/23 03/03/23 diphenhydramine HCl 25 mg capsule 75 mg PO Q6H PRN migraine headache 01/26/23 03/03/23 (Benadryl) ibuprofen 800 mg tablet 800 mg PO Q8H PRN pain 01/26/23 03/03/23 lamotrigine 200 mg tablet 200 mg PO BID 01/26/23 03/03/23 lithium carbonate 300 mg capsule 600 mg PO BID 01/26/23 03/03/23 orphenadrine citrate 100 mg 100 mg PO BID PRN migraine 01/26/23 03/03/23 tablet,extended release promethazine 25 mg tablet 12.5 mg PO Q6H PRN nausea and 01/26/23 03/03/23 vomiting albuterol sulfate 2.5 mg/3 mL 2.5 mg inhalation Q4H PRN 03/03/23 03/03/23 (0.083 %) solution for nebulization shortness of breath or wheezing ketorolac 10 mg tablet 10 mg PO Q6H PRN migraine headache 03/03/23 03/03/23 magnesium oxide 400 mg PO .qhs 03/03/23 03/03/23 trazodone 300 mg tablet 300 mg PO .qhs 03/03/23 03/03/23 Previous Rx's Medication Instructions Recorded ondansetron 4 mg disintegrating 4 mg PO Q6H PRN nausea and 02/26/23 tablet vomiting #20 tabs budesonide-formoterol HFA 160 2 inh inhalation Q12H #10.2 grams 03/04/23 mcg-4.5 mcg/actuation aerosol inhaler (Symbicort) prednisone 20 mg tablet 20 mg PO BID 5 days #10 tabs 03/04/23 prednisone 20 mg tablet 20 mg PO BID 5 days #10 tabs 03/04/23 Allergies Allergy/AdvReac Type Severity Reaction Status Date / Time buspirone Allergy Hives Verified 03/03/23 09:09 carbamazepine Allergy Unknown Verified 03/03/23 09:09 levetiracetam [From Keppra] Allergy ITCHING Verified 03/03/23 09:09 azithromycin [From Zithromax] AdvReac Intermediate Hives Verified 03/03/23 09:09 bee venom protein (honey bee) AdvReac Intermediate Hives Verified 03/03/23 09:09 metoclopramide [From Reglan] AdvReac Intermediate panic Verified 03/03/23 09:09 adhesive tape AdvReac Mild Rash Verified 03/03/23 09:09 cephalexin [From Keflex] AdvReac Mild Hives Verified 03/03/23 09:09 dextromethorphan AdvReac Mild Unknown Verified 03/03/23 09:09 [From [facility] [facility]] pyrilamine [From [facility] [facility]] AdvReac Mild Unknown Verified 03/03/23 09:09 propranolol AdvReac Hives Verified 03/03/23 09:09 Review of Systems ROS Status of ROS 10 or more systems reviewed and unremarkable except as noted in history and below [facility] Medical History (Updated 03/15/23 @ 14:35 by Komal Damian MD) Chronic pain disorder ?G89.4 - Chronic pain syndrome (ICD-10) Conjunctivitis ?H10.9 - Unspecified conjunctivitis (ICD-10) Migraine ?G43.909 - Migraine, unspecified, not intractable, without status migrainosus (ICD-10) Viral upper respiratory tract infection with cough ?J06.9 - Acute upper respiratory infection, unspecified (ICD-10) Seizure disorder ?G40.909 - Epilepsy, unspecified, not intractable, without status epilepticus (ICD-10) Bipolar disorder ?F31.9 - Bipolar disorder, unspecified (ICD-10) Pelvic pain ?R10.2 - Pelvic and perineal pain (ICD-10) Headache ?R51.9 - Headache, unspecified (ICD-10) Bilateral occipital neuralgia ?M54.81 - Occipital neuralgia (ICD-10) Migraine ?G43.909 - Migraine, unspecified, not intractable, without status migrainosus (ICD-10) Post-op pain ?G89.18 - Other acute postprocedural pain (ICD-10) Combative behavior ?R46.89 - Other symptoms and signs involving appearance and behavior (ICD-10) Postoperative nausea and vomiting ?R11.2 - Nausea with vomiting, unspecified (ICD-10) ?Z98.890 - Other specified postprocedural states (ICD-10) Vaginal bleeding ?N93.9 - Abnormal uterine and vaginal bleeding, unspecified (ICD-10) Abscess of vagina ?N76.0 - Acute vaginitis (ICD-10) PCOS (polycystic ovarian syndrome) ?E28.2 - Polycystic ovarian syndrome (ICD-10) Mitral valve prolapse ?I34.1 - Nonrheumatic mitral (valve) prolapse (ICD-10) Vaginal delivery ?O80 - Encounter for full-term uncomplicated delivery (ICD-10) Nausea ?R11.0 - Nausea (ICD-10) GERD (gastroesophageal reflux disease) ?K21.9 - Gastro-esophageal reflux disease without esophagitis (ICD-10) Depression ?F32.A - Depression, unspecified (ICD-10) Blood in urine ?R31.9 - Hematuria, unspecified (ICD-10) Acne ?L70.9 - Acne, unspecified (ICD-10) Dyspareunia Brain mass ?G93.89 - Other specified disorders of brain (ICD-10) Pneumonia ?J18.9 - Pneumonia, unspecified organism (ICD-10) Kidney stones ?N20.0 - Calculus of kidney (ICD-10) COVID-19 ?U07.1 - COVID-19 (ICD-10) Bronchitis ?J40 - Bronchitis, not specified as acute or chronic (ICD-10) Asthma ?J45.909 - Unspecified asthma, uncomplicated (ICD-10) Stress incontinence ?N39.3 - Stress incontinence (female) (male) (ICD-10) Dysuria ?R30.0 - Dysuria (ICD-10) Seizure ?R56.9 - Unspecified convulsions (ICD-10) Neck pain ?M54.2 - Cervicalgia (ICD-10) Migraine ?G43.909 - Migraine, unspecified, not intractable, without status migrainosus (ICD-10) Low back pain ?M54.50 - Low back pain, unspecified (ICD-10) Head injury ?S09.90XA - Unspecified injury of head, initial encounter (ICD-10) Anxiety ?F41.9 - Anxiety disorder, unspecified (ICD-10) Surgical History (Updated 01/06/23 @ 12:50 by Rocio Schwartz NP) H/O laparoscopy (07/21/22) ?Z98.890 - Other specified postprocedural states (ICD-10) S/P RAVI-BSO ?Z90.710 - Acquired absence of both cervix and uterus (ICD-10) ?Z90.722 - Acquired absence of ovaries, bilateral (ICD-10) ?Z90.79 - Acquired absence of other genital organ(s) (ICD-10) Hx laparoscopic cholecystectomy ?Z90.49 - Acquired absence of other specified parts of digestive tract (ICD-10) H/O: ?Z98.891 - History of uterine scar from previous surgery (ICD-10) History of appendectomy ?Z90.49 - Acquired absence of other specified parts of digestive tract (ICD-10) Family History (Updated 07/20/22 @ 17:40 by Irlanda Weiss RN) Other Acid reflux Acute renal disease Afib Chromosomal disorder Delayed developmental milestones Diabetes Family history of hypertension High cholesterol Neuro-irritability due to autonomic dysfunction Primary ciliary dyskinesia due to transposition of ciliary microtubules Pulmonary aspiration Tachycardia Social History (Updated 01/20/23 @ 08:49 by Joyce Zhong) Within the past year, how often did you have a drink containing alcohol: never Score interpretation: A score less than 3 is consistent with normal alcohol consumption. 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 General: Well-appearing and in no apparent distress. Skin: Warm, dry, no pallor noted. No rash. Head: Normocephalic, atraumatic. Neck: Supple, non-tender. Eye: Pupils are equal, round and EOMI. No scleral icterus. Ears, Nose, Mouth, and Throat: TM are clear, no nasal mucosal hypertrophy. Oral mucosa is moist, no posterior oropharynx erythema, uvula is mid-line Cardiovascular: Regular Rate and Rhythm without murmur, gallop or rub. Respiratory: No accessory muscle use or respiratory distress. Lungs are clear to auscultation, no wheezing, rales or rhonchi Chest Wall: no tenderness Back: No midline thoracic or lumbar vertebral tenderness. No CVA tenderness Musculoskeletal: normal ROM, no calf or popliteal tenderness, no lower extremity edema/swelling GI: Abdomen is soft, non-distended. Normal bowel sounds. No masses appreciated. No tenderness to palpation. No rebound, guarding, or rigidity noted. Neurological: A&O x4. No cranial nerve dysfunction observed. No truncal ataxia. Moves all extremities. Sensation intact. Psychiatric: Cooperative and interactive. Normal mood and affect. Constitutional Vital Signs, click to edit/add: Last Vital Signs Temp 97.6 F 03/15/23 11:19 Pulse 101 H 03/15/23 11:19 Resp 16 03/15/23 11:19 BP 129/84 03/15/23 11:19 Pulse Ox 99 03/15/23 11:19 O2 Del Method Room Air 03/15/23 14:19 Course Vital Signs Vital signs: Vital Signs Temperature 97.6 F 03/15/23 11:19 Pulse Rate 101 H 03/15/23 11:19 Respiratory Rate 16 03/15/23 11:19 Blood Pressure 129/84 03/15/23 11:19 Pulse Oximetry 99 03/15/23 11:19 Oxygen Delivery Method Room Air 03/15/23 11:19 Temperature 97.6 F 03/15/23 11:19 Pulse Rate 101 H 03/15/23 11:19 Respiratory Rate 16 03/15/23 11:19 Blood Pressure 129/84 03/15/23 11:19 Pulse Oximetry 99 03/15/23 11:19 Oxygen Delivery Method Room Air 03/15/23 14:19 Medical Decision Making MDM Narrative Medical decision making narrative: The patient CT head showed no acute significant pathology Initially the patient was treated with Compazine as well as Toradol after which when I came to assess her she was sleeping but when she woke up she mentioned that she still have the headache I did explain to her that right now she will be given the Benadryl and then she will be discharged to go rest at home the patient to follow-up with neurology as outpatient The patient is to follow up with primary care physician in next 2-3 days or to return to the emergency department should any of the signs or symptoms worsen or new symptoms develop. The patient agrees with the following Diagnosis and Treatment plan and the patient will be discharged home. Discharge Plan Discharge Chief Complaint: Headache Clinical Impression: Migraine Qualifiers: Migraine type: other Status migrainosus presence: without status migrainosus Intractability: not intractable Qualified Code(s): G43.809 - Other migraine, not intractable, without status migrainosus Patient Disposition: Home, Self-Care Time of Disposition Decision: 14:35 Prescriptions / Home Meds: No Action baclofen 10 mg tablet 10 mg PO TID diazepam 10 mg tablet 10 mg PO BID epinephrine 0.3 mg/0.3 mL auto-injector 0.3 mg IM Q10M PRN (Reason: anaphylaxis) Rx Instructions: for 2 doses ondansetron 4 mg tablet,disintegrating 4 mg PO Q6H PRN (Reason: nausea and vomiting) Qty: 20 0RF albuterol sulfate 2.5 mg /3 mL (0.083 %) solution for nebulization 2.5 mg inhalation Q4H PRN (Reason: shortness of breath or wheezing) trazodone 300 mg tablet 300 mg PO .qhs magnesium oxide 400 mg magnesium tablet 400 mg PO .qhs ketorolac 10 mg tablet 10 mg PO Q6H PRN (Reason: migraine headache) prednisone 20 mg tablet 20 mg PO BID 5 Days Qty: 10 0RF prednisone 20 mg tablet 20 mg PO BID 5 Days Qty: 10 0RF budesonide-formoterol [Symbicort] 160-4.5 mcg/actuation HFA aerosol inhaler 2 inh inhalation Q12H Qty: 10.2 0RF estradiol 0.5 mg tablet 0.5 mg PO QAM ibuprofen 800 mg tablet 800 mg PO Q8H PRN (Reason: pain) promethazine 25 mg tablet 12.5 mg PO Q6H PRN (Reason: nausea and vomiting) lithium carbonate 300 mg capsule 600 mg PO BID orphenadrine citrate 100 mg tablet extended release 100 mg PO BID PRN (Reason: migraine) lamotrigine 200 mg tablet 200 mg PO BID diphenhydramine HCl [Benadryl] 25 mg capsule 75 mg PO Q6H PRN (Reason: migraine headache) Stand Alone Forms: Portal Instructions Referrals: Lamont Blair MD [Primary Care Provider] - 1 week
[2023-03-15] MEDS: PROCHLORPERAZINE 10 MG/2 ML VIAL IM (13:14)
[2023-03-15] MEDS: KETOROLAC TROMETHAMINE 60 MG/2 ML VIAL IM (13:15)
[2023-03-15] MEDS: DIPHENHYDRAMINE HCL 50 MG/ML (1ML) VIAL 25 MG IM (14:42)
[2023-03-15 14:46] VITALS: PULSE 75; RESP 15; TEMP 36.6; O2SAT 98
== END 2023-03-15 14:52 | disposition home or self-care (01) ==
PROVIDERS: Emergency Provider Emergency Medicine; PCP Family Medicine
DX: G43.909 Migraine, unspecified, not intractable, without status migrainosus (principal); G40.909 Epilepsy, unspecified, not intractable, without status epilepticus; F31.9 Bipolar disorder, unspecified; K21.9 Gastro-esophageal reflux disease without esophagitis; Z86.16 Personal history of COVID-19; Z87.01 Personal history of pneumonia (recurrent); Z87.442 Personal history of urinary calculi; G93.89 Other specified disorders of brain; J45.909 Unspecified asthma, uncomplicated; F41.9 Anxiety disorder, unspecified; Z79.899 Other long term (current) drug therapy; Z90.710 Acquired absence of both cervix and uterus; Z90.722 Acquired absence of ovaries, bilateral; Z90.49 Acquired absence of other specified parts of digestive tract
CPT/HCPCS: 70450; 96372; 99285; J0780; J1200; J1885

== ENCOUNTER 2023-03-25 13:04 | Emergency (ER) | payer OTHER, SELFPAY ==
[2023-03-25 13:18] VITALS: BP 144/99; PULSE 103; RESP 18; TEMP 36.7; O2SAT 96; BMI 47.2
--- OUTSIDE RECORDS SUMMARY | 2023-03-25 13:40 | XMS_ITS | CCD ---
Author Name Unknown Address [address] [place] [address] Organization [facility] Care Team Providers Care [employer] Name Role Phone Maria Del Rosario Hahn (Historical) Primary Care Provide r Unavailable Sandhya FISH FARM LABORER - ADMITTING COUNSELOR, Angélica Santiago Primary Care Provider 1( [phone] SANDHYA ANGÉLICA Santiago Primary Care Unavailable VIELKA CHING Attending Unavailable Kuns FISH FARM LABORER - ADMITTING COUNSELOR, Angélica Santiago Primary Care Provider LUCILA MOTA Attending Unavailable PAYLYNDSEY Referring Unavailable SANDHYA ANGÉLICA Pamela Primary Care [...] Attending Unavailable DIAB ., [facility] Consulting Unavailable MISC, DR GOMEZ Primary Care Unavailable DIAB ., [facility] Admitting Unavailable MANJINDER DEAL Attending Unavailable MANJINDER DEAL Consulting Unavailable MANJINDER DEAL Admitting Unavailable LAURITA, DR SPENSER Garcia Primary Care Unavailable MARY KASPER Consulting Unavaildeshaun e ANASTASIA, DR GOMEZ Primary [...] ., MARY WHITNEY Consulting Unavailabl e ANASTASIIA, JASS Consulting Unavailable SUKHDEEP DOCKERY Attending Unavailable SANDHYA, DR ANGÉLICA Santiago Primary Care Unavailable SUKHDEEP DOCKERY Admitting Unavailable HAY ., DR HARMAN Consulting Unavailable SUKHDEEP DOCKERY Consulting Unavailable NABILA TONY Consulting Unavailable FAWWAD, LEW H Admitting Unavailable FAWWAD, LEW H Attending Unavailable ZIEBER, DR LOPEZ Santiago Consulting Unavailable REQUEST, NONE [...] Admitting Unavailable PATRICIA WALSH Consulting Unavailable [facility], DR GOMEZ Primary Care Unavailable HAY ., DR HARMAN Attending Unavailable HAY ., DR HARMAN Admitting Unavailable NEWSTEWART, NICHOLAS Consulting Unavailable UNLU, SINDY Consulting Unavailable LEONARDO ., DR GUTIERREZ Admitting Unavailable LEONARDO ., DR GUTIERREZ Consulting Unavailable [facility] Primary Care Unavailable LEONARDO ., DR GUTIERREZ Attending Unavailable KUNKrupa, DR ANGÉLICA Santiago Primary Care Unavailable LEONARDO ., DR GUTIERREZ Admitting Unavailable LEONARDO ., DR GUTIERREZ Attending Unavailable LEONARDO ., DR GUTIERREZ Consulting Unavailable LEONARDO ., DR GUTIERREZ Admitting Unavailable LEONARDO ., DR GUTIERREZ Attending Unavailable NADERER, DR SPENSER Garcia Primary Care Unavailable [facility] Primary Care Unavailable HAY ., DR HARMAN [...] MANJINDER Consulting Unavailable SAY, MANJINDER Admitting Unavailable KUNKrupa, DR ANGÉLICA Santiago Primary Care Unavailable KUNS, [...] HARMAN Admitting Unavailable AHDOOT, NELI Consulting Unavailable HaiderSamuelRamsey Attending Unavailab le Haider, Ramsey Admitting Unavailab le NON STAFF Primary Care Unavailable LEONARDOHARRISY Attending Unavailable LEONARDO, ZAY Attending Unavailable NADERERSPENSER Attending Unavailable LEONARDO, ZAY Attending Unavailable LEONARDO, ZAY Attending Unavailable GREEN, LOGAN Attending Unavailable HOY, MARIA DEL ROSARIO M Referring Unavailable HOY, MARIA DEL ROSARIO M Referring Unavailable HOY MARIA DEL ROSARIO M Referring Unavailable MARKER, DINORAH ESCUDERO Referring Unavailable MIMIDAVID Giles Attending Unavailable DAVID GOLDMAN Admitting Unavailable JESSE WHARTON Attending Unavailable GREENMONICAI Attending Unavailable GREENLOGAN Attending Unavailable BIDDLECOM, SUZAN Attending Unavailable GREEN, MONICAI Referring Unavailable ОЛЬГА AGUILAR Attending Unavailable GREEN, LOGAN Attending Unavailable BIDDLECOM, SUZAN Attending Unavailable GREENLOGAN Attending Unavailable Allergies Allergy Classification Reported Allergen(s) Allergy Type Date of Onset Reaction(s) Facility (20 sources) Azithromycin; Translations: [AZITHROMYCIN] Drug Allergy 12-25-19 21 Hives, Other: See Comments [facility] (2 sources) carBAMazepine Drug Allergy 12-25-19 21 Other (See Comments) [facility] (20 sources) Cephalexin; Translations: [CEPHALEXIN] Drug Allergy 12-25-19 21 Hives, Rash [facility] (20 sources) Metoclopramide; Translations: [METOCLOPRAMIDE] Drug Allergy 12-25-19 21 Hives, Intolerance [facility] (2 sources) Propranolol Drug Allergy 12-25-19 21 Hives, Other (See Comments) [facility] (20 sources) Adhesive Tape-Silicones; Translations: [ADHESIVE TAPE-SILICONES] Drug Allergy 12-04-19 22 Rash [facility] (20 sources) Dextromethorphan / Pyrilamine; Translations: [PYRILAMINE-DEXTROM ETHORPHAN] Drug Allergy 01-08-20 22 [facility] Work Phone: (20 sources) vortioxetine; Translations: [VORTIOXETINE] Drug Allergy 08-07-19 22 [facility] Work Phone: (17 sources) Dihydroergotamine; Translations: [DIHYDROERGOTAMINE] Drug Allergy 07-28-19 23 Intolerance [facility] (1 source) Azithromycin Drug Allergy [facility] (1 source) bee venom Drug allergy (disorder) [facility] (1 source) Cephalexin Drug Allergy [facility] (1 source) Desonide Drug Allergy [facility] (1 source) Iothalamate Drug Allergy [facility] (1 source) Propranolol Drug Allergy 12-21-19 21 [facility] (1 source) [place] [facility] Drug allergy (disorder) 01-08-20 22 [facility] (6 sources) levETIRAcetam; Translations: [LEVETIRACETAM] Drug Allergy 11-12-19 23 Itching [facility] Work Phone: (1 source) DIVALPROEX; Translations: [DIVALPROEX] Propensity to adverse reactions to drug (disorder) 03-22-19 24 [facility] Repository Medications Current Medications Medication Drug Class(es) Dates [...] mg oral tablet (20 sources) Benzodiazepine Start: 2 diazePAM (VALIUM) 10 mg tablet take 1 [...] Start: 10-21-2021 take 2 tablets by mo uth once daily lamoTRIgine (LAMICTAL) 25 MG tablet [...] above: Take 1 tablet by sami th as needed. 2.5 mg at onset of [...] a day as needed. polyethylene glycol 3350 59196 mg powder for oral solution (1 source) [...] (ZOMIG) 5 mg nasal spray Use 1 Manteno in the nose as needed at onset of migraine headache. If symptoms persist or return, may repeat dose in other nostril after 2 hours. Maximum of 2 sprays per 24 hours 10 Each 2 06/24/2022 Active Start: 06-24-2022 take 1 spray(s) nasa l route every twenty-four hours as needed ZOLMitriptan (ZOMIG) 5 mg nasal spray Use 1 Manteno in the nose as needed. SPRAY IN 1 NOSTRIL AT ONSET OF MIGRAINE HEADACHE. If symptoms persist or return, may repeat dose after 2 hours. Maximum: 5 mg/dose; 10 mg per 24 hours 10 Each 2 06/24/2022 Active Comment on above: Use 1 Manteno in the n ose as needed. SPRAY IN 1 NOSTRIL AT ONSET OF MIGRAINE HEADACHE. If symptoms persist or return, may repeat dose after 2 hours. 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 I explained that she would neeed a follow up to have orders updated since patient has not been seen since 12/12/22. Patient I scheduled for virtual follow up to discuss orders. Mendoza Dooley 03/21/2023 4:01 PM Signed Patient is re-scheduled for triage visit Allergies As of Date: 03/21/2023 Noted Allergy Reaction DIHYDROERGOTAMINE 07/27/2022 5 - [...] Date Reviewed: 12/12/2022 Reviewed by: Logan Barth APRN.ADMITTING COUNSELOR - Fully Assessed Reason for Visit: Patient Request [[id number]] Cmt: Headache infusions Prescriptions as of 03/21/2023 - ZOLMitriptan (ZOMIG) 5 mg nasal spray Use 1 Manteno in the nose as needed at onset of migraine headache. If symptoms persist or return, may repeat dose in other nostril after 2 hours. Maximum of 2 sprays per 24 hours - orphenadrine ER (NORFLEX) 100 mg tablet Take 1 tablet by mouth two times a day as needed. - promethazine (PHENERGAN) 12.5 mg tablet Take [...] - vilazodone (VIIBRYD) 20 mg tablet - lamoTRIgine (LAMICTAL) 150 mg tablet - diazePAM (VALIUM) 10 mg tablet Facility-Administer ed Medications as of 03/21/2023 - onabotulinum toxin type A 200 Units injection (BOTOX) Problem List As Of Date 03/21/2023 Noted Resolved Seizure-like activity (HCC) [R56.9] 04/01/2022 Psychogenic nonepileptic seizure [F44.5] 10/20/2021 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 w*06/24/2022 Encounter Status:Closed by MENDOZA DOOLEY on 03/21/23 [facility] 12-13-2022 CNPN Telephone ([facility]) ---- CONI NICHOLSON ([id number]) 1995 F Date Time Provider Department 12/13/22 LOGAN BARTH [facility] During your visit today, we recorded the following information about you: Jannette Mcleod, PRATIBHA 12/13/2022 2:10 PM Signed Received approval for Orphenadrine Citrate ER. See attached approval. Scan on 12/13/2022 1:58 PM by Provider, External, KOKIC: MARY Approval for Orphenadrine Citrate Allergies As [...] Date Reviewed: 12/12/2022 Reviewed by: Logan Barth APRN.ADMITTING COUNSELOR - Fully Assessed Prescriptions as of 12/13/2022 [...] (ZOMIG) 5 mg nasal spray Use 1 Manteno in the nose as needed at onset [...] Encounter Status:Closed by JANNETTE MCLEOD on 12/13/[address] [facility] CONI NICHOL[facility] ([id number]) 1995 F Date Time Provider Department 12/13/22 LOGAN BARTH During your visit today, we recorded the following information about you: Mendoza Dooley 12/13/2022 2:27 PM Signed Called patient to schedule for 3 days of Non DHE IV infusions. She started she was currently driving and would call back to schedule Logan Barth APRN.ADMITTING COUNSELOR P Headache Infusion Scheduling Pool; P C21 [...] Date Reviewed: 12/12/2022 Reviewed by: Logan Barth APRN.FADY - Fully Assessed Reason for Visit: Infusion [...] (ZOMIG) 5 mg nasal spray Use 1 Manteno in the nose as needed at onset [...] Encounter Status:Closed by MENDOZA DOOLEY on 12/13/22 [facility] 11-10-2022 FADY Telephone (NIQ) ---- CONI NICHOLSON ([id number]) 1995 F Date Time Provider Department 11/10/22 [...] get infusions scheduled. Number to return call [phone] Okay to leave a message ? Yes Last office visit 10/12/22 with [facility] Next office visit Not scheduled. Thank you calling [facility]. You will receive a return [...] Date Reviewed: 10/12/2022 Reviewed by: Suzan Driver APRN.ADMITTING COUNSELOR - Fully Assessed Reason for Visit: Infusion [...] (ZOMIG) 5 mg nasal spray Use 1 Manteno in the nose as needed at onset [...] Encounter Status:Closed by MENDOZA DOOLEY on 11/10/22 [facility] CNOVon 10-12-2022 CNOV Office Visit ([facility]2) ---- CONI NICHOLSON ([id number]) 1995 F Date Time Provider Department 10/12/22 10:15 AM SUZAN DRIVER [facility] During your visit today, we recorded the following information about you: Pulse Blood pressure Weight Height 91/minute 133/63 108.8 kg 1.549 m Suzan Driver APRN.ADMITTING COUNSELOR 10/12/2022 11:03 AM Addendum AFTER VISIT CARE [...] maximize the effectiveness of your pain relief. https://[email or web address].org/health/ treatments/8312-bot pjipnq-szgpj-lklzxj ions Download the Chronic Migraine Anatomy Andrzej (by [employer]) to learn more about botox. -HYDRATION Hydration [...] see if you qualify for reimbursement. https://www.botoxsa [employer].RTB-Media/ Return in 3 months for your next [...] machinery while taking this medication. Suzan Driver APRN.FADY 10/12/2022 11:04 AM Signed New Onabotulinum Toxin [...] 0 PHQ-9 06/24/2022more content not included)... Normal [facility] Veronica 09-29-2022 FADYN Telephone ([facility]) ---- CONI NICHOLSON ([id number]) 1995 F Date Time Provider Department 09/29/22 ANGELY COTTON [facility] During your visit today, we recorded the following information about you: Angely Cotton RN 09/29/2022 11:55 AM Signed [facility] received prescription(s) for Zomig 5MG nasal spray . Benefits investigation was conducted, indicating that a prior authorization is required. PA was initiated and pending review through [employer]. All pertinent clinical information was submitted to insurance. CMM Cohen: [id number] Ordering Provider: Logan Barth APRN.CNP Murtaugh, Alisha, RN [facility] P: , F: Angely Cotton RN 10/07/2022 3:17 PM Signed Ambulatory Pharmacy Prior Authorization Note Provider Intervention Required?: No- Pharmacy completed on your behalf. Rx Plan: Medicaid MCO ([facility]) Drug: Zomig 5MG nasal spray Cover My Meds Cohen: [id number] Determination: Approved Prior Authorization/Case #: n/a Prior [...] refills. Prescriptions will now be processed through [facility] for determination of next steps. For questions relating to this submission, please contact [facility] at [phone] Allergies As of Date: 09/29/2022 Noted Allergy [...] Date Reviewed: 09/12/2022 Reviewed by: Logan Barth APRN.ADMITTING COUNSELOR - Fully Assessed Reason for Visit: Insurance Authorization [[id number]] Cmt: Zomig 5MG nasal spray Prescriptions as [...] (ZOMIG) 5 mg nasal spray Use 1 Manteno in the nose as needed at onset [...] Encounter Status:Closed by ANGELY COTTON on 10/07/[address] [facility] CONI NICHOLSON ([id number]) 1995 F Date Time Provider Department 09/13/22 LOGAN BARTH [facility] During your visit today, we recorded [...] Date Reviewed: 09/12/2022 Reviewed by: Logan Barth APRN.[facility] - Fully Assessed Reason for Visit: Referral [...] (ZOMIG) 5 mg nasal spray Use 1 Manteno in the nose as needed. SPRAY IN [...] Encounter Status:Closed by ENEDINA TSAI on 09/13/22 [facility] CNCOon 09-08-2022 CNCO Letter Text [facility] CNPNon 07-05-2022 CNPMichael Telephone ([facility]) ---- CONI NICHOLSON ([id number]) 1995 F Date Time Provider Department 07/05/22 ANGELY COTTON [facility] During your visit today, we recorded the following information about you: Angely Cotton RN 07/05/2022 1:18 PM Signed [facility] received prescription(s) for Emgality 120MG/ML auto-injectors (migraine) . Benefits investigation was conducted, indicating that a prior authorization is required. PA was initiated and pending review through [employer]. All pertinent clinical information was submitted to insurance. CMM Cohen: [id number] Ordering Provider: Logan Barth APRN.Angely Schaefer RN [facility] P: , F: Angely Cotton RN 07/11/2022 12:55 PM Signed Ambulatory Pharmacy Prior Authorization Note Provider Intervention Required?: No- Pharmacy completed on your behalf. Rx Plan: Medicaid MCO ([facility]) Drug: Emgality 120MG/ML auto-injectors (migraine) Cover My Meds Cohen: [id number] Determination: Denied PA Denied because: Step therapy requirement Prior Authorization/Case #: n/a Prior Authorization Expiration: n/a Time to PA Submission in CMM: 15 min Time to PA Determination in CMM: 1 day Additional Information: Full letter scanned into chart for reference, please review letter for full details. No further action by [facility] for now and existing order to be profiled. Angely Cotton RN [facility] P: , F: For questions relating to this submission, please contact [facility] at [phone] Logan Barth APRN.CNP 07/20/2022 12:44 PM Signed She will have follow up visit after infusions, will discuss alternative treatment options at visit. GABBI Johnston [facility] 08/29/2022 12:12 PM Signed Patient saw Dr. Wharton 08/08/2022, are we able to use these notes to appeal? Tamiko Riggs RN 08/30/2022 11:[address] Wharton' notes have no information or info needed for an appeal so this cannot be used. PRATIBHA Benson [facility] 08/30/2022 2:45 PM Signed I did schedule patient for 08/31/2022 as backup, so those notes can be used. Thank you. Logan Barth APRN.CNP 08/31/2022 4:49 PM Addendum I saw her today. Please use my note to appeal. Thanks, GABBI Johnston Kristen, RN 09/08/2022 2:57 PM Signed Appeal letter sent. PRATIBHA Benson Melissa 09/26/2022 3:34 PM Signed Recall letter placed. Uploaded to chart via OnBase. PLEASE SEND NEW RX TO PHARMACY FOR [...] 11:35 AM Modules accepted: Orders Logan Barth APRN.[facility] 09/27/2022 11:37 AM Signed The following approved [...] Authorizing Provider: LOGAN BARTH APRN.CNP Green, Koli, APRN.[facility] 09/27/2022 11:37 AM Signed Addended by: LOGAN [...] Reason for Visit: Insurance Authorization [1693] Cmt: Emgality 120MG/ML auto-injectors (migraine) Order(s):Order #: [id number] Order #: [id number] Prescriptions as of 09/27/2022 - galcanezumab-gnlm (EMGALITY [...] - prometh (more content not included)... [facility] ---- CONI NICHOLSON ([id number]) 1995 F Date Time Provider Department 07/04/22 LOGAN BARTH [facility] During your visit today, we recorded the following information about you: Shirlene Leon 07/04/2022 4:01 PM Signed Ambulatory Pharmacy Prior Authorization Note Provider Intervention Required?: Yes- [place] Medicaid (PCN: [id number]) requires prior authorization to be submitted by the provider. Prior authorization forms required for submission can be found at: [email or web address] nt/DocumentLibrary/ Forms Drug: EMGALITY PEN 120 mg/mL pen Additional Information: n/a URGENT! Please select Urgent when requesting prior authorization using either [facility] or [facility] sites. This should result in a 24 hour turnaround from plan. Please send electronic fax using [employer] or [employer] or manually fax completed paperwork to [phone] with ATTN: PA Help Desk. Any questions, please contact us at [facility] [phone] Enedina Tsai RN 07/27/2022 8:32 AM Addendum Submitted PA via coverChamelic. Margaret Nicholson (Cohen: [id number]) Emgality 120MG/ML auto-injectors (migraine) Form: [place] Managed Medicaid [facility] Prior Authorization Form Your PA has been faxed to the plan as a paper copy. Please contact the plan directly if you haven't received a determination [...] Date Reviewed: 06/24/2022 Reviewed by: Logan Barth APRN.ADMITTING COUNSELOR - Fully Assessed Prescriptions as of 02/28/2023 [...] (ZOMIG) 5 mg nasal spray Use 1 Manteno in the nose as needed at onset [...] Encounter Status:Closed by SHIRLENE LEON on 02/28/23 [facility] Veronica 06-27-2022 BASHIR Telephone (NIQ) ---- AISLINN NICHOLSONANDRA Fernández ([id number]) 1995 F Date Time Provider Department 06/27/22 LOGAN BARTH During your visit today, we recorded the following information about you: Mendoza Dooley 06/27/2022 3:00 PM Signed Spoke to patient about scheduling infusions. Patient would like to callback once she can figure out transportation. Logan Barth APRN.FADY P Headache Infusion Scheduling Pool Please sched for infusions - therapy plan placed. Logan Barth APRN.FADY Dooley 06/29/2022 11:55 AM Signed Patient is scheduled [...] APRN.CNP - Fully Assessed Reason for Visit: Appointment [...] (ZOMIG) 5 mg nasal spray Use 1 Manteno in the nose as needed. SPRAY IN [...] Status:Closed by MENDOZA DOOLEY on 06/27/22 Normal [facility] BLOOD GASES BTYon 06-20-2022 02 [address] AIR Normal [facility] Comment on above: Performed By: #### B MP #### [facility] [address] [place] [address] Dr. Ibis Jimenez ALLENS TEST Positive Normal [facility] Comment on above: Performed By: #### B MP #### [facility] [address] [address] [address] Ibis Jimenez Base excess Calc (Bld) [Moles/Vol] -1.6000 mmol/L Normal -2.0-2.0 [facility] Comment on above: Performed By: #### B MP #### [facility] [address] [place] [address] Dr. Ibis Jimenez BIPAP PRESSURE Normal [facility] Comment on above: Performed By: #### B MP #### [facility] [address] [place] [address] Dr. Ibis Jimenez CPAP [facility] Comment on above: Performed By: #### B MP #### [facility] [address] [address] [address] Ibis Jimenez FIO2 [facility] Comment on above: Performed By: #### B MP #### [facility] [address] [place] [address] Dr. Ibis Jimenez HCO3 (Bld) [Moles/Vol] 23.8 mmol/L Normal 22.0-26.0 [facility] Comment on above: Performed By: #### B MP #### [facility] [address] [place] [address] Dr. Ibis Jimenez LPM [facility] Comment on above: Performed By: #### B MP #### [facility] [address] [place] [address] Dr. Ibis Jimenez MINUTE VOLUME [facility] Comment on above: Performed By: #### B MP #### [facility] [address] [place] [address] Dr. Ibis Jimenez Oxygen (Bld) [Partial pressure] 75.5 mm[Hg] Critically low 80.0-100.0 [facility] Comment on above: Performed By: #### B MP #### [facility] [address] [place] [address] Dr. Ibis Jimenez Oxygen saturation in Blood 95.8 % Normal 95.0-100.0 [facility] Comment on above: Performed By: #### B MP #### [facility] [address] [place] [address] Dr. Ibis Jimenez PCO2 41.8 mmHg Normal 35.0-45.0 [facility] Comment on above: Performed By: #### B MP #### [facility] [address] [place] [address] Dr. Ibis Jimenez PEEP [facility] Comment on above: Performed By: #### B MP #### [facility] [address] [place] [address] Dr. Ibis Jimenez pH (Bld) 7.363 [pH] Normal 7.350-7.450 [facility] Comment on above: Performed By: #### B MP #### [facility] [address] [place] [address] Dr. Ibis Jimenez [facility] Comment on above: Performed By: #### B MP #### [facility] [address] [place] [address] Dr. Ibis Jimenez [facility] Comment on above: Performed By: #### B MP #### [facility] [address] [place] [address] Dr. Ibis Jimenez PUNCTURE SITE LR [facility] Comment on above: Performed By: #### B MP #### [facility] [address] [place] [address] Dr. Ibis Jimenez [facility] Comment on above: Performed By: #### B MP #### [facility] [address] [place] [address] Dr. Ibis Jimenez VENT [facility] Comment on above: Performed By: #### B MP #### [facility] [address] [place] [address] Dr. Ibis Jimenez [facility] Comment on above: Performed By: #### B MP #### [facility] [address] [place] [address] Dr. Ibis Jimenez CBC AUTO DIFFon 06-20-2022 BASO # 0.0 103/ul Normal 0.0-0.1 [facility] Comment on above: Performed By: #### A CET SALYC #### [facility] [address] [place] [address] Dr. Ibis Jimenez Basophils/100 WBC (Bld) 0.5 % Normal 0.2-2.0 [facility] Comment on above: Performed By: #### A CET SALYC #### [facility] [address] [place] [address] Dr. Ibis Jimenez EO # 0.3 103/ul Normal 0.0-0.7 [facility] Comment on above: Performed By: #### A CET SALYC #### [facility] [address] [place] [address] Dr. Ibis Jimenez Eosinophils/100 WBC (Bld) 4.2 % Normal 0.9-7.0 [facility] Comment on above: Performed By: #### A CET, SALYC #### [facility] [address] [place] [address] Dr. Ibis Jimenez Erythrocyte distribution width (RBC) [Ratio] 13.2 % Normal 11.0-15.0 [facility] Comment on above: Performed By: #### A CET, SALYC #### [facility] [address] [place] [address] Dr. Ibis Jimenez Hematocrit (Bld) [Volume fraction] 36.5 % Normal 36.0-48.0 [facility] Comment on above: Performed By: #### A CET, SALYC #### [facility] [address] [place] [address] Dr. Ibis Jimenez Hemoglobin (Bld) [Mass/Vol] 11.7 g/dL Critically low 12.0-16.0 [facility] Comment on above: Performed By: #### A CET, SALYC #### [facility] [address] [place] [address] Dr. Ibis Jimenez IG # 0.05 10e3/ul Critically high 0.00-0.03 [facility] Comment on above: Performed By: #### A CET, SALYC #### [facility] [address] [place] [address] Dr. Ibis Jimenez IG % 0.8 % Critically high 0.0-0.5 [facility] Comment on above: Performed By: #### A CET, SALYC #### [facility] [address] [place] [address] Dr. Ibis Jimenez LYMPH # 1.7 103/ul Normal 1.2-3.8 [facility] Comment on above: Performed By: #### A CET, SALYC #### [facility] [address] [place] [address] Dr. Ibis Jimenez Lymphocytes/100 WBC (Bld) 26.9 % Normal 20.5-60.0 [facility] Comment on above: Performed By: #### A CET, SALYC #### [facility] [address] [place] [address] Dr. Ibis Jimenez MANUAL DIFF REQ NO Normal [facility] Comment on above: Performed By: #### A CET, SALYC #### [facility] [address] [place] [address] Dr. Ibis Jimenez MCH (RBC) [Entitic mass] 28.7 pg Normal 26.7-34.0 [facility] Comment on above: Performed By: #### A CET, SALYC #### [facility] [address] [place] [address] Dr. Ibis Jimenez MCHC (RBC) [Mass/Vol] 32.1 g/dL Normal 29.9-35.2 [facility] Comment on above: Performed By: #### A CET, SALYC #### [facility] [address] [place] [address] Dr. Ibis Jimenez MCV (RBC) [Entitic vol] 89.7 fL Normal 81.0-99.0 [facility] Comment on above: Performed By: #### A CET, SALYC #### [facility] [address] [place] [address] Dr. Ibis Jimenez MONO # 0.6 103/ul Normal 0.3-0.8 [facility] Comment on above: Performed By: #### A CET, SALYC #### [facility] [address] [place] [address] Dr. Ibis Jimenez Monocytes/100 WBC (Bld) 8.9 % Normal 1.7-12.0 [facility] Comment on above: Performed By: #### A CET, SALYC #### [facility] [address] [place] [address] Dr. Ibis Jimenez NEUT # 3.8 103/ul Normal 1.4-6.5 [facility] Comment on above: Performed By: #### A CET, SALYC #### [facility] [address] [place] [address] Dr. Ibis Jimenez Neutrophils/100 WBC (Bld) 58.7 % Normal 43.0-75.0 [facility] Comment on above: Performed By: #### A CET, SALYC #### [facility] [address] [place] [address] Dr. Ibis Jimenez Platelet mean volume (Bld) [Entitic vol] 9.3 fL Critically low 9.5-13.5 [facility] Comment on above: Performed By: #### A CET, SALYC #### [facility] [address] [place] [address] Dr. Ibis Jimenez PLT 188 103/ul Normal 150-450 [facility] Comment on above: Performed By: #### A CET, SALYC #### [facility] [address] [place] [address] Dr. Ibis Jimenez RBC 4.07 106/ul Critically low 4.20-5.40 [facility] Comment on above: Performed By: #### A CET, SALYC #### [facility] [address] [place] [address] Dr. Ibis Jimenez WBC 6.4 103/ul Normal 4.0-11.0 [facility] Comment on above: Performed By: #### A CET, SALYC #### [facility] [address] [place] [address] Dr. Ibis Jimenez DRUG SCREEN RAPID (URINE)on 06-20-2022 AMP Negative Normal NEGATIVE [facility] Comment on above: Performed By: #### B MP #### [facility] [address] [place] [address] Dr. Ibis Jimenez BAR Positive Abnormal NEGATIVE [facility] Comment on above: Performed By: #### B MP #### [facility] [address] [place] [address] Dr. Ibis Jimenez BUP Negative Normal NEGATIVE [facility] Comment on above: Performed By: #### B MP #### [facility] [address] [place] [address] Dr. Ibis Jimenez BZO Positive Abnormal NEGATIVE [facility] Comment on above: Performed By: #### B MP #### [facility] [address] [place] [address] Dr. Ibis Jimenez SEMAJ Negative Normal NEGATIVE [facility] Comment on above: Performed By: #### B MP #### [facility] [address] [place] [address] Dr. Ibis Jimenez CUT-OFFS SEE BELOW Normal [facility] Comment on above: Result Comment: AMP [...] ng/mL Performed By: #### B MP #### [facility] [address] [place] [address] Dr. Ibis Jimenez DRUG CUT HEADER DRUG CLASS TEST SYSTEM CUT-OFF CONCENTRATIONS ARE FOLLOWS: Normal [facility] Comment on above: Performed By: #### B MP #### [facility] [address] [place] [address] Dr. Ibis Jimenez mAMP Negative Normal NEGATIVE [facility] Comment on above: Performed By: #### B MP #### [facility] [address] [place] [address] Dr. Ibis Jimenez MTD Negative Normal NEGATIVE [facility] Comment on above: Performed By: #### B MP #### [facility] [address] [place] [address] Dr. Ibis Jimenez OPI Negative Normal NEGATIVE [facility] Comment on above: Performed By: #### B MP #### [facility] [address] [place] [address] Dr. Ibis Jimenez OXY Negative Normal NEGATIVE [facility] Comment on above: Performed By: #### B MP #### [facility] [address] [place] [address] Dr. Ibis Jimenez PCP Negative Normal NEGATIVE [facility] Comment on above: Performed By: #### B MP #### [facility] [address] [address] [address] Ibis Jimenez PPX Negative Normal NEGATIVE [facility] Comment on above: Performed By: #### B MP #### [facility] [address] [place] [address] Dr. Ibis Jimenez TCA Positive Abnormal NEGATIVE [facility] Comment on above: Performed By: #### B MP #### [facility] [address] [place] [address] Dr. Ibis Jimenez THC Positive Abnormal NEGATIVE [facility] Comment on above: Performed By: #### B MP #### [facility] [address] [place] [address] Dr. Ibis Jimenez ER URINE PROFILEon 3 Bilirubin Ql (U) Negative Normal NEGATIVE [facility] Comment on above: Performed By: #### A CET, SALYC #### [facility] [address] [place] [address] Dr. Ibis Jimenez Clarity (U) CLEAR Normal CLEAR [facility] Comment on above: Performed By: #### A CET, SALYC #### [facility] [address] [place] [address] Dr. Ibis Jimenez Color (U) YELLOW Normal YELLOW [facility] Comment on above: Performed By: #### A CET, SALYC #### [facility] [address] [place] [address] Dr. Ibis RODRIGUEZ A micrscopic examination will be performed if indicated. Normal [facility] Comment on above: Performed By: #### A CET, SALYC #### [facility] [address] [place] [address] Dr. Ibis Jimenez Glucose Ql (U) Negative Normal NEGATIVE [place] Comment on above: Performed By: #### A CET, SALYC #### [facility] [address] [place] [address] Dr. Ibis Jimenez Hemoglobin Ql (U) Negative Normal NEGATIVE [facility] Comment on above: Performed By: #### A CET, SALYC #### [facility] [address] [place] [address] Dr. Ibis Jimenez Ketones Ql (U) Negative Normal NEGATIVE [place] Comment on above: Performed By: #### A CET, SALYC #### [facility] [address] [place] [address] Dr. Ibis Jimenez LEUKOCYTES Negative Normal NEGATIVE [facility] Comment on above: Performed By: #### A CET, SALYC #### [facility] [address] [place] [address] Dr. Ibis Jimenez Nitrite Ql (U) Negative Normal NEGATIVE [place] Comment on above: Performed By: #### A CET, SALYC #### [facility] [address] [place] [address] Dr. Ibis Jimenez pH (U) 5.0 [pH] Normal 5-9 [facility] Comment on above: Performed By: #### A CET, SALYC #### [facility] [address] [place] [address] Dr. Ibis Jimenez SPEC GRAVITY >=1.030 Abnormal 1.005-<=1.[address] [facility] Comment on above: Performed By: #### A CET, SALYC #### [facility] [address] [place] [address] Dr. Ibis Jimenez UA PROTEIN Negative Normal NEGATIVE/ TRACE [facility] Comment on above: Performed By: #### A CET, SALYC #### [facility] [address] [place] [address] Dr. Ibis Jimenez UR MICRO IND NOT INDICATED Normal [facility] Comment on above: Performed By: #### A CET, SALYC #### [facility] [address] [place] [address] Dr. Ibis Jimenez Urobilinogen Qn (U) 0.2 {Dinorah'U}/dL Normal 0.2 - 1. 0 [facility] Comment on above: Performed By: #### A CET, SALYC #### [facility] [address] [place] [address] Dr. Ibis Jimenez PROF CHEM 8 (BAS METB)on Anion gap [Moles/Vol] 13.1 mmol/L Normal [facility] Comment on above: Performed By: #### M DAVID #### [facility] [address] [address] [address] Ibis Jimenez Calcium [Mass/Vol] 8.3 mg/dL Critically low 8.5-10.1 [facility] Comment on above: Performed By: #### M DAVID #### [facility] [address] [address] [address] Ibis Jimenez Chloride [Moles/Vol] 109 mmol/L Critically high 98-107 [facility] Comment on above: Performed By: #### M DAVID #### [facility] [address] [place] [address] Dr. Ibis Jimenez CO2 [Moles/Vol] 25.7 mmol/L Normal 21.0-32.0 [facility] Comment on above: Performed By: #### M DAVID #### [facility] [address] [place] [address] Dr. Ibis Jimenez Creatinine [Mass/Vol] 0.82 mg/dL Normal 0.55-1.02 [facility] Comment on above: Performed By: #### M DAVID #### [facility] [address] [place] [address] Dr. Ibis Jimenez EGFR-AF CYMRAES >60 Normal >=60 [facility] Comment on above: Performed By: #### M DAVID #### [facility] [address] [place] [address] Dr. Ibis Jimenez EGFR-NON AF CYMRAES >60 Normal >=60 [facility] Comment on above: Performed By: #### M DAVID #### [facility] [address] [place] [address] Dr. Ibis Jimenez Glucose [Mass/Vol] 95 mg/dL Normal 74-106 [facility] Comment on above: Performed By: #### M DAVID #### [facility] [address] [place] [address] Dr. Ibis Jimenez Potassium [Moles/Vol] 3.8 mmol/L Normal 3.5-5.1 [facility] Comment on above: Performed By: #### M DAVID #### [facility] [address] [place] [address] Dr. Ibis Jimenez Sodium [Moles/Vol] 144 mmol/L Normal 136-145 [facility] Comment on above: Performed By: #### M DAVID #### [facility] [address] [place] [address] Dr. Ibis Jimenez Urea nitrogen [Mass/Vol] 16.0 mg/dL Normal 7.0-18.0 [facility] Comment on above: Performed By: #### M DAVID #### [facility] [address] [place] [address] Dr. Ibis Jimenez Urea nitrogen/Creatinine [Mass ratio] 19.5 mg/mg Normal [facility] Comment on above: Performed By: #### M DAVID #### [facility] [address] [place] [address] Dr. Ibis Jimenez ACETAMINOPHENon 06-19-2022 Acetaminophen [Mass/Vol] ug/mL Critically low 10.0-30.0 [facility] Comment on above: Performed By: #### A KORI DAVIS #### [facility] [address] [place] [address] Dr. Ibis Jimenez DRUG SCREEN RAPID (URINE)on 06-19-2022 AMP Negative Normal NEGATIVE [facility] Comment on above: Performed By: #### M DAVID #### [facility] [address] [place] [address] Dr. Ibis Jimenez BAR Positive Abnormal NEGATIVE [facility] Comment on above: Performed By: #### M DAVID #### [facility] [address] [place] [address] Dr. Ibis Jimenez BUP Negative Normal NEGATIVE [facility] Comment on above: Performed By: #### M DAVID #### [facility] [address] [place] [address] Dr. Ibis Jimenez BZO Positive Abnormal NEGATIVE [facility] Comment on above: Performed By: #### M DAVID #### [facility] [address] [address] [address] Ibis Jimenez SEMAJ Negative Normal NEGATIVE [facility] Comment on above: Performed By: #### M DAVID #### [facility] [address] [address] [address] Ibis Jimenez CUT-OFFS SEE BELOW Normal [facility] Comment on above: Result Comment: AMP [...] ng/mL Performed By: #### M DAVID #### [facility] [address] [place] [address] Dr. Ibis Jimenez DRUG CUT HEADER DRUG CLASS TEST SYSTEM CUT-OFF CONCENTRATIONS ARE FOLLOWS: Normal [facility] Comment on above: Performed By: #### M DAVID #### [facility] [address] [address] [address] Ibis Jimenez mAMP Negative Normal NEGATIVE [facility] Comment on above: Performed By: #### M DAVID #### [facility] [address] [address] [address] Ibis Jimenez MTD Negative Normal NEGATIVE [facility] Comment on above: Performed By: #### M DAVID #### [facility] [address] [address] [address] Ibis Jimenez OPI Positive Abnormal NEGATIVE [facility] Comment on above: Performed By: #### M DAVID #### [facility] [address] [address] [address] Ibis Jimenez OXY Negative Normal NEGATIVE [facility] Comment on above: Performed By: #### M DAVID #### [facility] [address] [address] [address] Ibis Jimenez PCP Negative Normal NEGATIVE [facility] Comment on above: Performed By: #### M DAVID #### [facility] [address] [address] [address] Ibis Jimenez PPX Negative Normal NEGATIVE [facility] Comment on above: Performed By: #### M DAVID #### [facility] [address] [place] [address] Dr. Ibis Jimenez TCA Negative Normal NEGATIVE [facility] Comment on above: Performed By: #### M DAVID #### [facility] [address] [address] [address] Ibis Jimenez THC Positive Abnormal NEGATIVE [facility] Comment on above: Performed By: #### M ADVID #### [facility] [address] [place] [address] Dr. Ibis Jimenez ER URINE PROFILEon 3 Bilirubin Ql (U) Negative Normal NEGATIVE [facility] Comment on above: Performed By: #### M DAVID #### [facility] [address] [place] [address] Dr. Ibis Jimenez Clarity (U) CLEAR Normal CLEAR [facility] Comment on above: Performed By: #### M DAVID #### [facility] [address] [place] [address] Dr. bIis Jimenez Color (U) YELLOW Normal YELLOW [facility] Comment on above: Performed By: #### M DAVID #### [facility] [address] [place] [address] Dr. Ibis Jimenez ERUSYLVAIN A micrscopic examination will be performed if indicated. Normal [facility] Comment on above: Performed By: #### M DAVID #### [facility] [address] [place] [address] Dr. Ibis Jimenez Glucose Ql (U) Negative Normal NEGATIVE [place] Comment on above: Performed By: #### M DAVID #### [facility] [address] [place] [address] Dr. Ibis Jimenez Hemoglobin Ql (U) TRACE-INTACT Abnormal NEGATIVE [facility] Comment on above: Performed By: #### M DAVID #### [facility] [address] [address] [address] Ibis Jimenez Ketones Ql (U) Negative Normal NEGATIVE [place] Comment on above: Performed By: #### M DAVID #### [facility] [address] [place] [address] Dr. Ibis Jimenez LEUKOCYTES Negative Normal NEGATIVE [facility] Comment on above: Performed By: #### M DAVID #### [facility] [address] [place] [address] Dr. Ibis Jimenez Nitrite Ql (U) Negative Normal NEGATIVE [place] Comment on above: Performed By: #### M DAVID #### [facility] [address] [place] [address] Dr. Ibis Jimenez pH (U) 6.0 [pH] Normal 5-9 [facility] Comment on above: Performed By: #### M DAVID #### [facility] [address] [place] [address] Dr. Ibis Jimenez Protein (U) [Mass/Vol] 30 mg/dL Abnormal NEGAT ADALGISA/ TRACE [facility] Comment on above: Performed By: #### M DAVID #### [facility] [address] [place] [address] Dr. Ibis Jimenez SPEC GRAVITY 1.025 Normal 1.005-<=1.[address] [facility] Comment on above: Performed By: #### M DAVID #### [facility] [address] [place] [address] Dr. Ibis Jimenez UR MICRO IND INDICATED Normal [facility] Comment on above: Performed By: #### M DAVID #### [facility] [address] [place] [address] Dr. Ibis Jimenez Urobilinogen Qn (U) 0.2 {Dinorah'U}/dL Normal 0.2 - 1. 0 [facility] Comment on above: Performed By: #### M DAVID #### [facility] [address] [place] [address] Dr. Ibis Jimenez ETHANOL (BLD ALC)on 06-20-19 ALC NOTE NOTE: 80 mg/dl is the legal limit for a blood alcohol level Normal [facility] Comment on above: Performed By: #### A MM #### [facility] [address] [place] [address] Dr. Ibis Jimenez Ethanol [Mass/Vol] mg/dL Normal [facility] Comment on above: Performed By: #### A MM #### [facility] [address] [address] [address] Ibis Jimenez POINT OF CARE GLUCOSEon 05-23 Glucose [Mass/Vol] 88 mg/dL Normal 74-106 [facility] Comment on above: Performed By: #### C VDTBH #### [facility] [address] [place] [address] Dr. Ibis Jimenez URon 06-19-2022 , QUAL Negative Normal NEGATIVE [facility] Comment on above: Performed By: #### M DAVID #### [facility] [address] [place] [address] Dr. Ibis Jimenez PROF CHEM 8 (BAS METB)on Anion gap [Moles/Vol] 12.6 mmol/L Normal [facility] Comment on above: Performed By: #### A MM #### [facility] [address] [place] [address] Dr. Ibis Jimenez Calcium [Mass/Vol] 8.4 mg/dL Critically low 8.5-10.1 [facility] Comment on above: Performed By: #### A MM #### [facility] [address] [place] [address] Dr. Ibis Jimenez Chloride [Moles/Vol] 107 mmol/L Normal 98-107 [facility] Comment on above: Performed By: #### A MM #### [facility] [address] [place] [address] Dr. Ibis Jimenez CO2 [Moles/Vol] 22.5 mmol/L Normal 21.0-32.0 [facility] Comment on above: Performed By: #### A MM #### [facility] [address] [address] [address] Ibis Jimenez Creatinine [Mass/Vol] 0.82 mg/dL Normal 0.55-1.02 [facility] Comment on above: Performed By: #### A MM #### [facility] [address] [address] [address] Ibis Jimenez EGFR-AF CYMRAES >60 Normal >=60 [facility] Comment on above: Performed By: #### A MM #### [facility] [address] [place] [address] Dr. Ibis Jimenez EGFR-NON AF CYMRAES >60 Normal >=60 [facility] Comment on above: Performed By: #### A MM #### [facility] [address] [place] [address] Dr. Ibis Jimenez Glucose [Mass/Vol] 87 mg/dL Normal 74-106 [facility] Comment on above: Performed By: #### A MM #### [facility] [address] [address] [address] Ibis Jimenez Potassium [Moles/Vol] 4.1 mmol/L Normal 3.5-5.1 [facility] Comment on above: Performed By: #### A MM #### [facility] [address] [place] [address] Dr. Ibis Jimenez Sodium [Moles/Vol] 138 mmol/L Normal 136-145 [facility] Comment on above: Performed By: #### A MM #### [facility] [address] [address] [address] Ibis Jimenez Urea nitrogen [Mass/Vol] 22.0 mg/dL Critically high 7.0-18.0 [facility] Comment on above: Performed By: #### A MM #### [facility] [address] [place] [address] Dr. Ibis Jimenez Urea nitrogen/Creatinine [Mass ratio] 26.8 mg/mg Normal [facility] Comment on above: Performed By: #### A MM #### [facility] [address] [place] [address] Dr. Ibis Jimenez SALICYLATEon 06-19-2022 SALICYLATE <2.8 Normal <=19.9 [facility] Comment on above: Performed By: #### A KORI DAVIS #### [facility] [address] [address] [address] Ibis Jimenez URINE MICROSCOPIC ONLYon BACTERIA NONE SEEN Normal NONE SEEN [facility] Comment on above: Performed By: #### M DAVID #### [facility] [address] [address] [address] Ibis Jimenez Bacteria identified Cx Nom (U) NOT INDICATED Normal [facility] Comment on above: Performed By: #### M DAVID #### [facility] [address] [address] [address] Ibis Jimenez CAST SEEN Abnormal NONE SEEN [facility] Comment on above: Performed By: #### M DAVID #### [facility] [address] [address] [address] Ibis Jimenez Crystals LM Nom (Urine sed) NONE SEEN Normal NONE SEEN [facility] Comment on above: Performed By: #### M DAVID #### [facility] [address] [address] [address] Ibis Jimenez Epithelial cells LM Ql (Urine sed) MODERATE Abnormal NONE SEEN /RARE [facility] Comment on above: Performed By: #### M DAVID #### [facility] [address] [address] [address] Ibis Jimenez HYALINE CAST FEW Normal [facility] Comment on above: Performed By: #### M DAVID #### [facility] [address] [address] [address] Ibis Jimenez MUCOUS NONE SEEN Normal NONE SEEN [facility] Comment on above: Performed By: #### M DAVID #### [facility] [address] [place] [address] Dr. Ibis Jimenez RBC 2-5 Abnormal 0-2 [facility] Comment on above: Performed By: #### M DAVID #### [facility] [address] [address] [address] Ibis Jimenez WBC NONE SEEN Normal NONE SEEN [facility] Comment on above: Performed By: #### M DAVID #### [facility] [address] [place] [address] Dr. Ibis Jimenez CBC AUTO DIFFon 06-11-2022 BASO # 0.0 103/ul Normal 0.0-0.1 [facility] Comment on above: Performed By: #### C VDTBH #### [facility] [address] [place] [address] Dr. Ibis Jimenez Basophils/100 WBC (Bld) 0.3 % Normal 0.2-2.0 [facility] Comment on above: Performed By: #### C VDTBH #### [facility] [address] [place] [address] Dr. Ibis Jimenez EO # 0.0 103/ul Normal 0.0-0.7 [facility] Comment on above: Performed By: #### C VDTBH #### [facility] [address] [place] [address] Dr. Ibis Jimenez Eosinophils/100 WBC (Bld) 0.1 % Critically low 0.9-7.0 [facility] Comment on above: Performed By: #### C VDTBH #### [facility] [address] [place] [address] Dr. Ibis Jimenez Erythrocyte distribution width (RBC) [Ratio] 13.2 % Normal 11.0-15.0 [facility] Comment on above: Performed By: #### C VDTBH #### [facility] [address] [place] [address] Dr. Ibis Jimenez Hematocrit (Bld) [Volume fraction] 38.5 % Normal 36.0-48.0 [facility] Comment on above: Performed By: #### C VDTBH #### [facility] [address] [place] [address] Dr. Ibis Jimenez Hemoglobin (Bld) [Mass/Vol] 12.4 g/dL Normal 12.0-16.0 [facility] Comment on above: Performed By: #### C VDTBH #### [facility] [address] [place] [address] Dr. Ibis Jimenez IG # 0.20 10e3/ul Critically high 0.00-0.03 [facility] Comment on above: Performed By: #### C VDTBH #### [facility] [address] [place] [address] Dr. Ibis Jimenez IG % 1.8 % Critically high 0.0-0.5 [facility] Comment on above: Performed By: #### C VDTBH #### [facility] [address] [place] [address] Dr. Ibis Jimenez LYMPH # 0.5 103/ul Critically low 1.2-3.8 [place] Comment on above: Performed By: #### C VDTBH #### [facility] [address] [place] [address] Dr. Ibis Jimenez Lymphocytes/100 WBC (Bld) 4.6 % Critically low 20.5-60.0 [facility] Comment on above: Performed By: #### C VDTBH #### [facility] [address] [place] [address] Dr. Ibis Jimenez MANUAL DIFF REQ NO Normal [facility] Comment on above: Performed By: #### C VDTBH #### [facility] [address] [place] [address] Dr. Ibis Jimenez MCH (RBC) [Entitic mass] 28.2 pg Normal 26.7-34.0 [facility] Comment on above: Performed By: #### C VDTBH #### [facility] [address] [place] [address] Dr. Ibis Jimenez MCHC (RBC) [Mass/Vol] 32.2 g/dL Normal 29.9-35.2 [facility] Comment on above: Performed By: #### C VDTBH #### [facility] [address] [place] [address] Dr. Ibis Jimenez MCV (RBC) [Entitic vol] 87.5 fL Normal 81.0-99.0 [facility] Comment on above: Performed By: #### C VDTBH #### [facility] [address] [place] [address] Dr. Ibis Jimenez MONO # 0.1 103/ul Critically low 0.3-0.8 [facility] Comment on above: Performed By: #### C VDTBH #### [facility] [address] [place] [address] Dr. Ibis Jimenez Monocytes/100 WBC (Bld) 1.3 % Critically low 1.7-12.0 [facility] Comment on above: Performed By: #### C VDTBH #### [facility] [address] [place] [address] Dr. Ibis Jimenez NEUT # 10.1 103/ul Critically high 1.4-6.5 [facility] Comment on above: Performed By: #### C VDTBH #### [facility] [address] [place] [address] Dr. Ibis Jimenez Neutrophils/100 WBC (Bld) 91.9 % Critically high 43.0-75.0 [facility] Comment on above: Performed By: #### C VDTBH #### [facility] [address] [place] [address] Dr. Ibis Jimenez Platelet mean volume (Bld) [Entitic vol] 9.1 fL Critically low 9.5-13.5 [facility] Comment on above: Performed By: #### C VDTBH #### [facility] [address] [place] [address] Dr. Ibis Jimenez PLT 240 103/ul Normal 150-450 [facility] Comment on above: Performed By: #### C VDTBH #### [facility] [address] [place] [address] Dr. Ibis Jimenez RBC 4.40 106/ul Normal 4.20-5.40 [facility] Comment on above: Performed By: #### C VDTBH #### [facility] [address] [place] [address] Dr. Ibis Jimenez WBC 11.0 103/ul Normal 4.0-11.0 [facility] Comment on above: Performed By: #### C VDTBH #### [facility] [address] [place] [address] Dr. Ibis Jimenez PROF 14(COMP METB)on 023 Albumin [Mass/Vol] 3.3 g/dL Critically low 3.4-5.0 [facility] Comment on above: Performed By: #### B MP #### [facility] [address] [place] [address] Dr. Ibis Jimenez Albumin/Globulin [Mass ratio] 0.9 {ratio} Normal [facility] Comment on above: Performed By: #### B MP #### [facility] [address] [place] [address] Dr. Ibis Jimenez ALP [Catalytic activity/Vol] 63 U/L Normal 46-116 [facility] Comment on above: Performed By: #### B MP #### [facility] [address] [place] [address] Dr. Ibis Jimenez ALT [Catalytic activity/Vol] 32 U/L Normal 14-59 [facility] Comment on above: Performed By: #### B MP #### [facility] [address] [place] [address] Dr. Ibis Jimenez Anion gap [Moles/Vol] 12.9 mmol/L Normal [facility] Comment on above: Performed By: #### B MP #### [facility] [address] [place] [address] Dr. Ibis Jimenez AST [Catalytic activity/Vol] 14 U/L Critically low 15-37 [facility] Comment on above: Performed By: #### B MP #### [facility] [address] [place] [address] Dr. Ibis Jimenez Bilirubin [Mass/Vol] 0.2 mg/dL Normal 0.2-1.0 [facility] Comment on above: Performed By: #### B MP #### [facility] [address] [place] [address] Dr. Ibis Jimenez Calcium [Mass/Vol] 8.5 mg/dL Normal 8.5-10.1 [facility] Comment on above: Performed By: #### B MP #### [facility] [address] [address] [address] Ibis Jimenez Chloride [Moles/Vol] 106 mmol/L Normal 98-107 [facility] Comment on above: Performed By: #### B MP #### [facility] [address] [address] [address] Ibis Jimenez CO2 [Moles/Vol] 26.6 mmol/L Normal 21.0-32.0 [facility] Comment on above: Performed By: #### B MP #### [facility] [address] [address] [address] Ibis Jimenez Creatinine [Mass/Vol] 0.89 mg/dL Normal 0.55-1.02 [facility] Comment on above: Performed By: #### B MP #### [facility] [address] [place] [address] Dr. Ibis Jimenez EGFR-AF CYMRAES >60 Normal >=60 [facility] Comment on above: Performed By: #### B MP #### [facility] [address] [address] [address] Ibis Jimenez EGFR-NON AF CYMRAES >60 Normal >=60 [facility] Comment on above: Performed By: #### B MP #### [facility] [address] [address] [address] Ibis Jimenez Globulin (S) [Mass/Vol] 3.6 g/dL Normal [facility] Comment on above: Performed By: #### B MP #### [facility] [address] [place] [address] Dr. Ibis Jimenez Glucose [Mass/Vol] 134 mg/dL Critically high 74-106 [facility] Comment on above: Performed By: #### B MP #### [facility] [address] [address] [address] Ibis Jimenez Potassium [Moles/Vol] 4.5 mmol/L Normal 3.5-5.1 [facility] Comment on above: Performed By: #### B MP #### [facility] [address] [place] [address] Dr. Ibis Jimenez Protein [Mass/Vol] 6.9 g/dL Normal 6.4-8.2 [facility] Comment on above: Performed By: #### B MP #### [facility] [address] [address] [address] Ibis Jimenez Sodium [Moles/Vol] 141 mmol/L Normal 136-145 [facility] Comment on above: Performed By: #### B MP #### [facility] [address] [address] [address] Ibis Jimenez Urea nitrogen [Mass/Vol] 15.0 mg/dL Normal 7.0-18.0 [facility] Comment on above: Performed By: #### B MP #### [facility] [address] [address] [address] Ibis Jimenez Urea nitrogen/Creatinine [Mass ratio] 16.9 mg/mg Normal [facility] Comment on above: Performed By: #### B MP #### [facility] [address] [address] [address] HEAD WO CONon 05-23-2022 CT HEAD WO CON EXAMINATION: [facility] HEAD [facility], 05/23/2022 6:45 PM EDT HISTORY: Traumatic AND/OR [...] NICHOLAS MARCUS Date: 2022-05-23 19:25 Normal [facility] CT [facility] WO CONon [address] [facility] WITHOUT CONTRAST. CT LUMBAR [...] with vacuum phenomenon. Electronically authenticated by: SINDY LIAOU Date: 2022-05-23 19:41 Normal [facility] CBC W Auto Differential pane l (Bld)on 04-01-2022 Basophils (Bld) [#/Vol] 10*3/uL Normal <0.11 [facility] Comment on above: Order Comment: Speci men Type: BLOOD SPECIMEN Ordering Facility: [facility] Address: [address] [phone] Performed By: #### 2 4323-8, 01248-1, 2777-1, 6-3 #### [facility] CLIA [id number] [address] [place] [address] [place] Basophils/100 WBC (Bld) 0.1 % Normal [facility] Comment on above: Order Comment: Speci men Type: BLOOD SPECIMEN Ordering Facility: [facility] Address: [address] [phone] Performed By: #### 2 4323-8, 92759-5, 2777-1, 3016-3 #### [facility] CLIA [id number] [address] [place] [address] [place] Differential cell count method Nom (Bld) Auto Normal [facility] Comment on above: Order Comment: Speci men Type: BLOOD SPECIMEN Ordering Facility: [facility] Address: [address] [place] [address] Performed By: #### 2 4323-8, 60033-4, 2777-1, 3016-3 #### [facility] CLIA [id number] [address] [place] [address] [place] Eosinophils (Bld) [#/Vol] 10*3/uL Normal <0.46 [facility] Comment on above: Order Comment: Speci men Type: BLOOD SPECIMEN Ordering Facility: [facility] Address: [address] [place] [address] Performed By: #### 2 4323-8, 29133-7, 277-1, 3016-3 #### [facility] CLIA [id number] [address] [place] [address] [place] Eosinophils/100 WBC (Bld) 0.1 % Normal [facility] Comment on above: Order Comment: Speci men Type: BLOOD SPECIMEN Ordering Facility: [facility] Address: [address] [place] [address] Performed By: #### 2 4323-8, 40715-6, 2777-1, 3016-3 #### [facility] CLIA [id number] [address] [place] [address] [place] Erythrocyte distribution width (RBC) [Ratio] 12.6 % Normal 11.5-15.0 [facility] Comment on above: Order Comment: Speci men Type: BLOOD SPECIMEN Ordering Facility: [facility] Address: [address] [place] [address] Performed By: #### 2 4323-8, 64511-0, 2777-1, 3016-3 #### [facility] CLIA [id number] [address] [place] [address] [place] Hematocrit (Bld) [Volume fraction] 40.6 % Normal 36.0-46.0 [facility] Comment on above: Order Comment: Speci men Type: BLOOD SPECIMEN Ordering Facility: [facility] Address: [address] [place] [address] Performed By: #### 2 4323-8, 32972-8, 2777-1, 3016-3 #### [facility] CLIA [id number] [address] [place] [address] [place] Hemoglobin (Bld) [Mass/Vol] 13.6 g/dL Normal 11.5-15.5 [facility] Comment on above: Order Comment: Speci men Type: BLOOD SPECIMEN Ordering Facility: [facility] Address: [address] [place] [address] Performed By: #### 2 4323-8, 69279-6, 277-, 6-3 #### [facility] CLIA [id number] [address] [place] [address] [place] Immature granulocytes (Bld) [#/Vol] 0.04 10*3/uL Normal <0.10 [facility] Comment on above: Order Comment: Speci men Type: BLOOD SPECIMEN Ordering Facility: [facility] Address: [address] [place] [address] Performed By: #### 2 4323-8, 55951-0, 277-, 6-3 #### [facility] CLIA [id number] [address] [place] [address] [place] Immature granulocytes/100 WBC (Bld) 0.5 % Normal [facility] Comment on above: Order Comment: Speci men Type: BLOOD SPECIMEN Ordering Facility: [facility] Address: [address] [place], [place] [phone] Performed By: #### 2 4323-8, 85130-0, 277-1, 6-3 #### [facility] CLIA [id number] [address] [place] [address] [place] Lymphocytes (Bld) [#/Vol] 0.84 10*3/uL Low 1.00-4.00 [facility] Comment on above: Order Comment: Speci men Type: BLOOD SPECIMEN Ordering Facility: [facility] Address: [address] [place] [address] Performed By: #### 2 4323-8, 94543-7, 2777-1, 3016-3 #### [facility] CLIA [id number] [address] [place] [address] [place] Lymphocytes/100 WBC (Bld) 9.5 % Normal [facility] Comment on above: Order Comment: Speci men Type: BLOOD SPECIMEN Ordering Facility: [facility] Address: [address] [place] [address] Performed By: #### 2 4323-8, 97686-5, 2777-1, 6-3 #### [facility] CLIA [id number] [address] [place] [address] [place] MCH (RBC) [Entitic mass] 28.8 pg Normal 26.0-34.0 [facility] Comment on above: Order Comment: Speci men Type: BLOOD SPECIMEN Ordering Facility: [facility] Address: [address] [place] [address] Performed By: #### 2 4323-8, 14852-6, 277-1, 6-3 #### [facility] CLIA [id number] [address] [place] [address] [place] MCHC (RBC) [Mass/Vol] 33.5 g/dL Normal 30.5-36.0 [facility] Comment on above: Order Comment: Speci men Type: BLOOD SPECIMEN Ordering Facility: [facility] Address: [address] [place] [address] Performed By: #### 2 4323-8, 86184-4, 2777-1, 6-3 #### [facility] CLIA [id number] [address] [id number] [place] MCV (RBC) [Entitic vol] 85.8 fL Normal 80.0-100.0 [facility] Comment on above: Order Comment: Speci men Type: BLOOD SPECIMEN Ordering Facility: [facility] Address: [address] [place] [address] Performed By: #### 2 4323-8, 44925-9, 2777-1, 6-3 #### [facility] CLIA [id number] [address] [place] [address] [place] Monocytes (Bld) [#/Vol] 0.06 10*3/uL Normal <0.87 [facility] Comment on above: Order Comment: Speci men Type: BLOOD SPECIMEN Ordering Facility: [facility] Address: [address] [place], [place] [phone] Performed By: #### 2 4323-8, 82793-5, 277-, 6-3 #### [facility] CLIA [id number] [address] [place] [address] [place] Monocytes/100 WBC (Bld) 0.7 % Normal [facility] Comment on above: Order Comment: Speci men Type: BLOOD SPECIMEN Ordering Facility: [facility] Address: [address] [place], [place] [phone] Performed By: #### 2 4323-8, 94693-2, 277-, 6-3 #### [facility] CLIA [id number] [address] [place] [address] [place] Neutrophils (Bld) [#/Vol] 7.87 10*3/uL High 1.45-7.50 [facility] Comment on above: Order Comment: Speci men Type: BLOOD SPECIMEN Ordering Facility: [facility] Address: [address] [place], [place] [phone] Performed By: #### 2 4323-8, 64560-2, 2777-1, 3016-3 #### [facility] CLIA [id number] [address] [place] [address] [place] Neutrophils/100 WBC (Bld) 89.1 % Normal [facility] Comment on above: Order Comment: Speci men Type: BLOOD SPECIMEN Ordering Facility: [facility] Address: [address] [place], [place] [phone] Performed By: #### 2 4323-8, 45110-6, 2777-1, 3016-3 #### [facility] CLIA [id number] [address] [place] [address] [place] Nucleated RBC (Bld) [#/Vol] 10*3/uL Normal <0.01 [facility] Comment on above: Order Comment: Speci men Type: BLOOD SPECIMEN Ordering Facility: [facility] Address: [address] [place], [place] [phone] Performed By: #### 2 4323-8, 12302-8, 2777-1, 3016-3 #### [facility] CLIA [id number] [address] [place] [address] [place] Nucleated RBC/100 WBC (Bld) [Ratio] 0.0 /100 WBC Normal [facility] Comment on above: Order Comment: Speci men Type: BLOOD SPECIMEN Ordering Facility: [facility] Address: [address] [place], [place] [phone] Performed By: #### 2 4323-8, 60212-0, 2777-1, 3016-3 #### [facility] CLIA [id number] [address] [place] [address] [place] Platelet mean volume (Bld) [Entitic vol] 10.0 fL Normal 9.0-12.7 [facility] Comment on above: Order Comment: Speci men Type: BLOOD SPECIMEN Ordering Facility: [facility] Address: [address] [place], [place] [address] Performed By: #### 2 4323-8, 31701-9, 2776-1, 6-3 #### [facility] CLIA [id number] [address] [place] [address] [place] Platelets (Bld) [#/Vol] 219 10*3/uL Normal 150-400 [facility] Comment on above: Order Comment: Speci men Type: BLOOD SPECIMEN Ordering Facility: [facility] Address: [address] [place] [address] Result Comment: No c lot detected. Performed By: #### 2 4323-8, 31116-7, 2776-, 3015-3 #### [facility] CLIA [id number] [address] [place] [address] [place] RBC (Bld) [#/Vol] 4.73 10*6/uL Normal 3.90-5.20 [facility] Comment on above: Order Comment: Speci men Type: BLOOD SPECIMEN Ordering Facility: [facility] Address: [address] [place] [address] Performed By: #### 2 4323-8, 74804-7, 2776-, 3015-3 #### [facility] CLIA [id number] [address] [place] [address] [place] WBC (Bld) [#/Vol] 8.83 10*3/uL Normal 3.70-11.00 [facility] Comment on above: Order Comment: Speci men Type: BLOOD SPECIMEN Ordering Facility: [facility] Address: [address] [place] [address] Performed By: #### 2 4323-8, 35561-4, 2776-, 3015-3 #### [facility] CLIA [id number] [address] [place] [address] [place] CNDSon 04-01-2022 CNDS HNO ID: [id number] Author: Lo Coyle PA-C Service: Neurology Adult Epilepsy Author Type: Physician [employer] Type: Discharge Summary Filed: 04/01/2022 5:40 PM Note Text: ---- Attestation signed by David Goldman MD at 04/02/2022 9:36 AM [facility] ATTENDING NOTE Date of Service: April 02, 2022 [facility] STAFF PHYSICIAN NOTE OF PERSONAL [...] I have performed the substantive portion including [id number] and relevant services for a total of < 30 minutes. David Goldman MD Staff Physician [facility] [address] [place] [address] Office ---- DISCHARGE SUMMARY PATIENT NAME: Margaret [...] year old female who presented to the [facility] on 04/01/2022 for diagnosis. [...] Dr. Good (more content not included)... Normal [facility] CT HEAD WO CONon 04-01-2022 CT HEAD [...] ROBIN IRBY Date: 2022-03-31 22:40 Normal [facility] Comprehensive metabolic 2000 panelon 04-01-2022 Albumin [Mass/Vol] 4.2 g/dL Normal 3.9-4.9 [facility] Comment on above: Order Comment: Speci men Type: BLOOD SPECIMEN Ordering Facility: [facility] Address: [address] [place] [phone] Performed By: #### 2 0273-8, 19999-4, 2777-1, 3016-3 #### [facility] CLIA [id number] [address] [place] [address] [place] ALP [Catalytic activity/Vol] 84 U/L Normal 34-123 [facility] Comment on above: Order Comment: Speci men Type: BLOOD SPECIMEN Ordering Facility: [facility] Address: [address] [place], [place] [id number] Performed By: #### 2 4323-8, 89000-5, 2777-1, 3016-3 #### [facility] CLIA [id number] [address] [place] [address] [place] ALT [Catalytic activity/Vol] 12 U/L Normal 7-38 [facility] Comment on above: Order Comment: Speci men Type: BLOOD SPECIMEN Ordering Facility: [facility] Address: [address] [place], [place] [phone] Performed By: #### 2 4323-8, 53273-2, 2777-1, 3016-3 #### [facility] CLIA [id number] [address] [place] [address] [place] Anion gap [Moles/Vol] 14 mmol/L Normal 9-18 [facility] Comment on above: Order Comment: Speci men Type: BLOOD SPECIMEN Ordering Facility: [facility] Address: [address] [place] [phone] Performed By: #### 2 4323-8, 35606-9, 277-1, 3016-3 #### [facility] CLIA [id number] [address] [place], [place] [id number] [place] AST [Catalytic activity/Vol] 14 U/L Normal 13-35 [facility] Comment on above: Order Comment: Speci men Type: BLOOD SPECIMEN Ordering Facility: [facility] Address: [address] [place], [place] [id number] Performed By: #### 2 4323-8, , 2776-1, 6-3 #### [facility] CLIA [id number] [address] [place], [place] [address] [place] Bilirubin [Mass/Vol] 0.3 mg/dL Normal 0.2-1.3 [facility] Comment on above: Order Comment: Speci men Type: BLOOD SPECIMEN Ordering Facility: [facility] Address: [address] [place], [place] [id number] Performed By: #### 2 4323-8, , 2776-, 3016-3 #### [facility] CLIA [id number] [address] [place] [address] [place] Calcium [Mass/Vol] 8.9 mg/dL Normal 8.5-10.2 [facility] Comment on above: Order Comment: Speci men Type: BLOOD SPECIMEN Ordering Facility: [facility] Address: [address] [place], [place] [id number] Performed By: #### 2 4323-8, 39876-7, 2776-, 3016-3 #### [facility] CLIA [id number] [address] [place] [address] [place] Chloride [Moles/Vol] 105 mmol/L Normal 97-105 [facility] Comment on above: Order Comment: Speci men Type: BLOOD SPECIMEN Ordering Facility: [facility] Address: [address] [place], [place] [address] Performed By: #### 2 4323-8, 72511-9, 2776-1, 3016-3 #### [facility] CLIA [id number] [address] [place] [address] [place] CO2 [Moles/Vol] 20 mmol/L Low 22-30 [facility] Comment on above: Order Comment: Speci men Type: BLOOD SPECIMEN Ordering Facility: [facility] Address: [address] [place], [place] [id number] Performed By: #### 2 4323-8, 65961-2, 2777-1, 3016-3 #### [facility] CLIA [id number] [address] [place] [address] [place] Creatinine [Mass/Vol] 0.64 mg/dL Normal 0.58-0.96 [facility] Comment on above: Order Comment: Specnisha men Type: BLOOD SPECIMEN Ordering Facility: [facility] Address: [address] [place] [address] Performed By: #### 2 4323-8, 18282-1, 7-1, 3016-3 #### [facility] CLIA [id number] [address] [place] [address] [place] ESTIMATED GLOMERULAR FILTRATION RATE 125 mL/min/1.73m??? Normal >=60 [facility] Comment on above: Order Comment: Chaitanya baker Type: BLOOD SPECIMEN Ordering Facility: [facility] Address: [address] [place] [address] Result Comment: Fatou mated Glomerular Filtration Rate [...] actual GFR. Performed By: #### 2 4323-8, 39422-1, 277-1, 3016-3 #### [facility] CLIA [id number] [address] [place] [address] [place] Glucose [Mass/Vol] 120 mg/dL High 74-99 [facility] Comment on above: Order Comment: Maria Luisai samuel Type: BLOOD SPECIMEN Ordering Facility: [facility] Address: [address] [place] [address] Result Comment: The [place] Diabetes Association (ADA) provides guidance for cutoff [...] Standards of Medical Care in Diabetes 2016, [place] [employer] Association. Diabetes Care. 2016.39(Suppl 1). Performed By: #### 2 4323-8, 33601-0, 2777-1, 3016-3 #### [facility] CLIA [id number] [address] [place] [address] [place] Potassium [Moles/Vol] 4.5 mmol/L Normal 3.7-5.1 [facility] Comment on above: Order Comment: Speci men Type: BLOOD SPECIMEN Ordering Facility: [facility] Address: [address] [place] [address] Performed By: #### 2 4323-8, 81003-4, 2777-1, 3016-3 #### [facility] CLIA [id number] [address] [place] [address] [place] Protein [Mass/Vol] 6.9 g/dL Normal 6.3-8.0 [facility] Comment on above: Order Comment: Chaitanya baker Type: BLOOD SPECIMEN Ordering Facility: [facility] Address: [address] [id number] Performed By: #### 2 4323-8, 24650-1, 2777-1, 3016-3 #### [facility] CLIA [id number] [address] [place] [address] [place] Sodium [Moles/Vol] 139 mmol/L Normal 136-144 [facility] Comment on above: Order Comment: Maria Luisai men Type: BLOOD SPECIMEN Ordering Facility: [facility] Address: [address] [place] [address] Performed By: #### 2 4323-8, 69446-7, 2777-1, 6-3 #### [facility] CLIA [id number] [facility] [place] [id number] [place] Urea nitrogen [Mass/Vol] 11 mg/dL Normal 7-21 [facility] Comment on above: Order Comment: Speci men Type: BLOOD SPECIMEN Ordering Facility: [facility] Address: [address] [place], [place] [phone] Performed By: #### 2 4323-8, 49287-3, 277-, 6-3 #### [facility] CLIA [id number] [facility] [place] [id number] [place] Covid-19 PCR ([facility]on 03-23 SARS-CoV-2 (COVID-19) RNA SAURABH+probe Ql (Unsp spec) Not detected Normal NOT DETECTED [facility] Comment on above: Result Comment: When [...] for this test is supported by the [place] of Health and Human Service's declaration that [...] used). Performed By: #### C VDTB #### [facility] [address] [place], [place] [address] Dr. Ibis Jimenez ECG COMPLETEon 04-01-2022 ECG COMPLETE Ventricular Rate : 98 BPM Atrial Rate : 98 BPM P-R Interval : 154 ms QRS Duration : 76 ms Q-T Interval : 364 ms QTC Calculation(Bazett) : 464 ms Calculated P Acosta : 51 degrees Calculated R Acosta : 60 degrees Calculated T Acosta : 54 degrees NORMAL SINUS RHYTHM NORMAL ECG Confirmed by MD MELTON HEBA ([id number]) on 04/04/2022 2:47:00 PM NAME : MARGARET NICHOLSON PID : [id number] : 1995 Gender : Female Race : ORD : [id number] Procedure Date : Apr 01 2022 11:53:22 Edit Date : Apr 04 2022 14:47:01 Diagnosis: NORMAL SINUS RHYTHM NORMAL ECG Confirmed by MD MELTON HEBA ([id number]) on 04/04/2022 2:47:00 PM Test Reason : Chest Pain Location : 89 : M80 M080-06 Overread By : MD MELTON HEBA Edited By : MD MELTON HEBA Referred By : DINORAH IVY Acquired by : AUSTIN HSU [facility] URINE PROFILEon 3 Bilirubin Ql (U) Negative Normal NEGATIVE [facility] Comment on above: Performed By: #### A CET, SALYC #### [facility] [address] [place] [address] Dr. Ibis Jimenez Clarity (U) CLEAR Normal CLEAR [facility] Comment on above: Performed By: #### A CET, SALYC #### [facility] [address] [place] [address] Dr. Ibis Jimenez Color (U) YELLOW Normal YELLOW [facility] Comment on above: Performed By: #### A CET, SALYC #### [facility] [address] [place] [address] Dr. Ibis Jimenez ERUAHD A micrscopic examination will be performed if indicated. Normal [facility] [place] [facility] Comment on above: Performed By: #### A CET, SALYC #### [facility] [address] [place] [address] Dr. Ibis Jimenez Glucose Ql (U) Negative Normal NEGATIVE [place] Comment on above: Performed By: #### A CET, SALYC #### [facility] [address] [place] [address] Dr. Ibis Jimenez Hemoglobin Ql (U) SMALL Abnormal NEGATIVE [facility] Comment on above: Performed By: #### A CET, SALYC #### [facility] [address] [place] [address] Dr. Ibis Jimenez Ketones Ql (U) Negative Normal NEGATIVE [facility] Comment on above: Performed By: #### A CET, SALYC #### [facility] [address] [place] [address] Dr. Ibis Jimenez LEUKOCYTES Negative Normal NEGATIVE [facility] Comment on above: Performed By: #### A CET, SALYC #### [facility] [address] [place] [address] Dr. Ibis Jimenez Nitrite Ql (U) Negative Normal NEGATIVE [facility] Comment on above: Performed By: #### A CET, SALYC #### [facility] [address] [place] [address] Dr. Ibis Jimenez pH (U) 5.5 [pH] Normal 5-9 [facility] Comment on above: Performed By: #### A CET, SALYC #### [facility] [address] [place] [address] Dr. Ibis Jimenez SPEC GRAVITY >=1.030 Abnormal 1.005-<=1.[address] [facility] Comment on above: Performed By: #### A CET, SALYC #### [facility] [address] [place] [address] Dr. Ibis Jimenez UA PROTEIN Negative Normal NEGATIVE/ TRACE [facility] Comment on above: Performed By: #### A CET, SALYC #### [facility] [address] [place] [address] Dr. Ibis Jimenez UR MICRO IND INDICATED Normal [facility] Comment on above: Performed By: #### A CET, SALYC #### [facility] [address] [place] [address] Dr. Ibis Jimenez Urobilinogen Qn (U) 0.2 {Dinorah'U}/dL Normal 0.2 - 1. [address] [facility] Comment on above: Performed By: #### A CET, SALYC #### [facility] [address] [address] [address] Ibis Jimenez HISTORY PHYSICALon 3 HISTORY PHYSICAL HNO ID: [id number] Author: David Goldman MD Service: Neurology Adult Epilepsy Author Type: Physician Type: HANDP Filed: 04/01/2022 5:15 PM Note Text: NEURO EPILEPSY ADMIT NOTE SERVICE DATE: 04/01/2022 SERVICE TIME: 5:10 AM NIGHT AND WEEKEND COVERAGE: After 5 pm and over the weekends, please page [phone] to contact the epilepsy resident/fellow/pro vider consumer sales representative ATTENDING PHYSICIAN: Dr. Goldman [facility] UNIT: M60 - Adult Epilepsy [...] drowsy and unable to provide any history. Fiamanda endorses that since November, her seizures have been infrequent, occurring every few months. He describes them as full body shaking, brief, and without warning. He endorses she has had falls in the past with seizures. Margaret was transferred this morning from [facility] for reported 15-16 seizures. She was given 1,000mg IV Keppra at 2155 and a total of 4mg IV Ativan at (1mg at 2026, 1mg at 2118 and 2mg at 2241). CT brain completed read as no acute intracranial abnormality. UA negative for infection. From ER records: Brought by her family's flight test shop mechanic after she had some seizures at home. [...] event, she complains memory issues/vision issues. [facility] admission documentation ([facility] [place]) ADMISSION DATE: 10/19/21 DISCHARGE DATE: 10/20/21 Patient was hooked up to jail video EEG monitoring or LTME. Overnight, patient [...] drive CURRENT SEIZURE TYPES: Type A: Onset: 2019 (more content not included)... Normal [facility] INFLUENZA A AND B AGon 04-01 INFLUANEGH SEE BELOW Normal [facility] Comment on above: Result Comment: Nega tive for Flu A protein angiten. Infection due to Flu A cannot be ruled out. Flu A angiten in the sample may be below the detection limit of the test. Performed By: #### A MM #### [facility] [address] [place] [address] Dr. Ibis Jimenez INFLUBNEGH SEE BELOW Normal [facility] Comment on above: Result Comment: Nega tive for Flu B protein antigen. Infection due to Flu B cannot be ruled out. Flu B antigen in the sample may be below the detection limit of the test. Performed By: #### A MM #### [facility] [address] [place] [address] Dr. Ibis Jimenez INFLUENZA A AG Negative Normal NEGATIVE SEE COMMENT [facility] Comment on above: Performed By: #### A MM #### [facility] [address] [place] [address] Dr. Ibis Jimenez INFLUENZA B AG Negative Normal NEGATIVE SEE COMMENT [facility] Comment on above: Performed By: #### A MM #### [facility] [address] [place] [address] Dr. Ibis Jimenez LACTATE/LACTIC ACIDon 2022 Lactate [Moles/Vol] 1.9 mmol/L Normal 0.4-1.9 [facility] Comment on above: Performed By: #### L ACT #### [facility] [address] [address] [address] Ibis Jimenez [place] SerPl-sCncon 023 [place] [Moles/Vol] 0.1 mmol/L Low 0.6-1.2 [facility] Comment on above: Order Comment: Chaitanya baker Type: BLOOD SPECIMENOrdering Facility: [facility] Address: [address] [place] [address] Result Comment: Refe rence ranges and high/low indicator flags are provided as general guidelines only. The treating physician must determine appropriate target levels/dosing based on the specific clinical situation. Performed By: #### 1 4334-7 ####[facility] [id number] [address] [place] Magnesium SerPl-mCncon 04-01 Magnesium [Mass/Vol] 1.8 mg/dL Normal 1.7-2.3 [facility] Comment on above: Order Comment: Speci men Type: BLOOD SPECIMEN Ordering Facility: [facility] Address: [address] [place] [address] Performed By: #### 2 4323-8, 01550-4, 2777-1, 3016-3 #### [facility] CLIA [id number] [address] [place] [address] [place] NURSING PROGon 04-01-2022 NURSING PROG HNO ID: [id number] Author: Gabino Cadena RN Service: Nursing Author Type: Registered Nurse Type: Nursing Progress Note Filed: 04/01/2022 5:55 AM Note Text: The patient arrives to [facility] bed 6 at this time via cart [...] admission questions when patient condition allows. Normal [facility] Phosphate SerPl-mCncon 04-01 Phosphate [Mass/Vol] 2.7 mg/dL Normal 2.7-4.8 [facility] Comment on above: Order Comment: Speci men Type: BLOOD SPECIMEN Ordering Facility: [facility] Address: [address] [place], [place] [address] [address] Performed By: #### 2 4323-8, 50757-0, 2777-1, 3016-3 #### [facility] CLIA [id number] [address] [place] [address] [place] SARS-CoV-2 RNA Resp Ql SAURABH+p robeon 04-01-2022 SARS-CoV-2 (COVID-19) RNA SAURABH+probe Ql (Resp) COVID 19 RESULT: Not detected The method used is RT-PCR or an equivalent NAAT method. Reference Range(the expected result in uninfected individuals): Not detected Normal [facility] Comment on above: Performed By: #### 2 4323-8, , 277-1, 3016-3 #### [facility] CLIA [id number] [address] [place] [address] [place] SOCIAL WORKon 04-01-2022 SOCIAL WORK HNO ID: [id number] Author: GABRIELE Huynh Service: Social Work Author Type: Herpetologist Type: Social Work Filed: 04/01/2022 4:21 PM [...] childhood stating that's confidential information when this story writer asks about history of trauma during [...] informs she has income from her children's [employer] benefits. PSYCHIATRIC HISTORY: Per chart review, patient has a history of depression, anxiety, PTSD, and bipolar disorder; these diagnoses are confirmed by patient. She reports having a therapist, Lucy, through [employer] and also has a psychiatrist. Patient informs [...] health provide (more content not included)... Normal [facility] TSH SerPl-aCncon 04-01-2022 TSH Qn 0.537 m[IU]/L Normal 0.270-4.200 [facility] Comment on above: Order Comment: Speci men Type: BLOOD SPECIMEN Ordering Facility: [facility] Address: [address] [place] [id number] Result Comment: If t he patient is , TSH reference range varies by gestational period: First Trimester (weeks 9-12): 0.180-2.990 mIU/L Second Trimester: 0.110-3.980 mIU/L Third Trimester: 0.480-4.710 mIU/L Sanford Fernández et al. A Practical Approach for the Verifications and Determination of Site- and Trimester-Specific Reference Intervals for Thyroid Function tests in . Thyroid, 2019:29:3:412-420. Lior Gan et al. 2017 Guidelines of the [place] Thyroid Association for the Diagnosis and Management of Thyroid Disease during and the . Thyroid, 2017:27:3:315-389. Performed By: #### 2 4323-8, 91493-5, 2777-1, 3016-3 #### [facility] CLIA [id number] [address] [place] [address] [place] URINE MICROSCOPIC ONLYon BACTERIA TRACE Abnormal NONE SEEN [facility] Comment on above: Performed By: #### A CET, SALYC #### [facility] [address] [place] [address] Dr. Ibis Jimenez Bacteria identified Cx Nom (U) NOT INDICATED Normal [facility] Comment on above: Performed By: #### A CET, SALYC #### [facility] [address] [place] [address] Dr. Ibis Jimenez CAST NONE SEEN Normal NONE SEEN [facility] Comment on above: Performed By: #### A CET, SALYC #### [facility] [address] [place] [address] Dr. Ibis Jimenez Crystals LM Nom (Urine sed) NONE SEEN Normal NONE SEEN [facility] Comment on above: Performed By: #### A CET, SALYC #### [facility] [address] [place] [address] Dr. Ibis Jimenez Epithelial cells LM Ql (Urine sed) RARE Normal NONE SEEN /RARE [facility] Comment on above: Performed By: #### A CET, SALYC #### [facility] [address] [place] [address] Dr. Ibis Jimenez MUCOUS TRACE Abnormal NONE SEEN [facility] Comment on above: Performed By: #### A CET, SALYC #### [facility] [address] [place] [address] Dr. Ibis Jimenez RBC 0-2 Normal 0-2 [facility] Comment on above: Performed By: #### A CET, SALYC #### [facility] [address] [place] [address] Dr. Ibis Jimenez WBC NONE SEEN Normal NONE SEEN [facility] Comment on above: Performed By: #### A CET, SALYC #### [facility] [address] [place] [address] Dr. Ibis Jimenez AMMONIAon 03-31-2022 Ammonia (P) [Moles/Vol] 31 umol/L Normal 11-32 [facility] Comment on above: Performed By: #### A MM #### [facility] [address] [place] [address] Dr. Ibis Jimenez CBC AUTO DIFFon 03-31-2022 BASO # 0.0 103/ul Normal 0.0-0.1 [facility] Comment on above: Performed By: #### A MM #### [facility] [address] [place] [address] Dr. Ibis Jimenez Basophils/100 WBC (Bld) 0.4 % Normal 0.2-2.0 [facility] Comment on above: Performed By: #### A MM #### [facility] [address] [place] [address] Dr. Ibis Jimenez EO # 0.5 103/ul Normal 0.0-0.7 [facility] Comment on above: Performed By: #### A MM #### [facility] [address] [place] [address] Dr. Ibis Jimenez Eosinophils/100 WBC (Bld) 6.4 % Normal 0.9-7.0 [facility] Comment on above: Performed By: #### A MM #### [facility] [address] [place] [address] Dr. Ibis Jimenez Erythrocyte distribution width (RBC) [Ratio] 12.8 % Normal 11.0-15.0 [facility] Comment on above: Performed By: #### A MM #### [facility] [address] [place] [address] Dr. Ibis Jimenez Hematocrit (Bld) [Volume fraction] 36.6 % Normal 36.0-48.0 [facility] Comment on above: Performed By: #### A MM #### [facility] [address] [place] [address] Dr. Ibis Jimenez Hemoglobin (Bld) [Mass/Vol] 12.5 g/dL Normal 12.0-16.0 [facility] Comment on above: Performed By: #### A MM #### [facility] [address] [place] [address] Dr. Ibis Jimenez IG # 0.02 10e3/ul Normal 0.00-0.03 [facility] Comment on above: Performed By: #### A MM #### [facility] [address] [place] [address] Dr. Ibis Jimenez IG % 0.3 % Normal 0.0-0.5 [facility] Comment on above: Performed By: #### A MM #### [facility] [address] [place] [address] Dr. Ibis Jimenez LYMPH # 2.0 103/ul Normal 1.2-3.8 [facility] Comment on above: Performed By: #### A MM #### [facility] [address] [place] [address] Dr. Ibis Jimenez Lymphocytes/100 WBC (Bld) 25.0 % Normal 20.5-60.0 [facility] Comment on above: Performed By: #### A MM #### [facility] [address] [place] [address] Dr. Ibis Jimenez MANUAL DIFF REQ NO Normal [facility] Comment on above: Performed By: #### A MM #### [facility] [address] [place] [address] Dr. Ibis Jimenez MCH (RBC) [Entitic mass] 29.5 pg Normal 26.7-34.0 [facility] Comment on above: Performed By: #### A MM #### [facility] [address] [place] [address] Dr. Ibis Jimenez MCHC (RBC) [Mass/Vol] 34.2 g/dL Normal 29.9-35.2 [facility] Comment on above: Performed By: #### A MM #### [facility] [address] [place] [address] Dr. Ibis Jimenez MCV (RBC) [Entitic vol] 86.3 fL Normal 81.0-99.0 [facility] Comment on above: Performed By: #### A MM #### [facility] [address] [place] [address] Dr. Ibis Jimenez MONO # 0.4 103/ul Normal 0.3-0.8 [facility] Comment on above: Performed By: #### A MM #### [facility] [address] [place] [address] Dr. Ibis Jimenez Monocytes/100 WBC (Bld) 5.6 % Normal 1.7-12.0 [facility] Comment on above: Performed By: #### A MM #### [facility] [address] [place] [address] Dr. Ibis Jimenez NEUT # 4.9 103/ul Normal 1.4-6.5 [facility] Comment on above: Performed By: #### A MM #### [facility] [address] [place] [address] Dr. Ibis Jimenez Neutrophils/100 WBC (Bld) 62.3 % Normal 43.0-75.0 [facility] Comment on above: Performed By: #### A MM #### [facility] [address] [place] [address] Dr. Ibis Jimenez Platelet mean volume (Bld) [Entitic vol] 9.5 fL Normal 9.5-13.5 [facility] Comment on above: Performed By: #### A MM #### [facility] [address] [place] [address] Dr. Ibis Jimenez PLT 246 103/ul Normal 150-450 [facility] Comment on above: Performed By: #### A MM #### [facility] [address] [place] [address] Dr. Ibis Jimenez RBC 4.24 106/ul Normal 4.20-5.40 [facility] Comment on above: Performed By: #### A MM #### [facility] [address] [place] [address] Dr. Ibis Jimenez WBC 7.8 103/ul Normal 4.0-11.0 [facility] Comment on above: Performed By: #### A MM #### [facility] [address] [place] [address] Dr. Ibis Jimenez CULTURE BLOODon 03-31-2022 Microscopic examination of blood, culture Culture Observations: NO GROWTH AT [address] [facility] Comment on above: Performed By: #### B LDCX2 #### [facility] [address] [place] [address] Dr. Ibis Jimenez Microscopic examination of blood, culture Culture Observations: NO GROWTH AT [address] [facility] Comment on above: Performed By: #### B MP #### [facility] [address] [place] [address] Dr. Ibis Jimenez LACTATE/LACTIC ACIDon 2022 Lactate [Moles/Vol] 2.8 mmol/L Critically high 0.4-1.9 [facility] Comment on above: Performed By: #### C VDTBH #### [facility] [address] [place] [address] Dr. Ibis Jimenez PROF 14(COMP METB)on 023 Albumin [Mass/Vol] 3.4 g/dL Normal 3.4-5.0 [facility] Comment on above: Performed By: #### B MP #### [facility] [address] [place] [address] Dr. Ibis Jimenez Albumin/Globulin [Mass ratio] 1.2 {ratio} [facility] Comment on above: Performed By: #### B MP #### [facility] [address] [place] [address] Dr. Ibis Jimenez ALP [Catalytic activity/Vol] 85 U/L Normal 46-116 [facility] Comment on above: Performed By: #### B MP #### [facility] [address] [place] [address] Dr. Ibis Jimenez ALT [Catalytic activity/Vol] 18 U/L Normal 14-59 [facility] Comment on above: Performed By: #### B MP #### [facility] [address] [place] [address] Dr. Ibis Jimenez Anion gap [Moles/Vol] 13.2 mmol/L Normal [facility] Comment on above: Performed By: #### B MP #### [facility] [address] [place] [address] Dr. Ibis Jimenez AST [Catalytic activity/Vol] 11 U/L Critically low 15-37 [facility] Comment on above: Performed By: #### B MP #### [facility] [address] [address] [address] Ibis Jimenez Bilirubin [Mass/Vol] 0.2 mg/dL Normal 0.2-1.0 [facility] Comment on above: Performed By: #### B MP #### [facility] [address] [address] [address] Ibis Jimenez Calcium [Mass/Vol] 8.6 mg/dL Normal 8.5-10.1 [facility] Comment on above: Performed By: #### B MP #### [facility] [address] [place] [address] Dr. Ibis Jimenez Chloride [Moles/Vol] 105 mmol/L Normal 98-107 [facility] Comment on above: Performed By: #### B MP #### [facility] [address] [address] [address] Ibis Jimenez CO2 [Moles/Vol] 25.1 mmol/L Normal 21.0-32.0 [facility] Comment on above: Performed By: #### B MP #### [facility] [address] [place] [address] Dr. Ibis Jimenez Creatinine [Mass/Vol] 0.80 mg/dL Normal 0.55-1.02 [facility] Comment on above: Performed By: #### B MP #### [facility] [address] [address] [address] Ibis Jimenez EGFR-AF CYMRAES >60 Normal >=60 [facility] Comment on above: Performed By: #### B MP #### [facility] [address] [address] [address] Ibis Jimenez EGFR-NON AF CYMRAES >60 Normal >=60 [facility] Comment on above: Performed By: #### B MP #### [facility] [address] [place] [address] Dr. Ibis Jimenez Globulin (S) [Mass/Vol] 2.9 g/dL Normal [facility] Comment on above: Performed By: #### B MP #### [facility] [address] [address] [address] Ibis Jimenez Glucose [Mass/Vol] 99 mg/dL Normal 74-106 [facility] Comment on above: Performed By: #### B MP #### [facility] [address] [address] [address] Ibis Jimenez Potassium [Moles/Vol] 3.3 mmol/L Critically low 3.5-5.1 [facility] Comment on above: Performed By: #### B MP #### [facility] [address] [address] [address] Ibis Jimenez Protein [Mass/Vol] 6.3 g/dL Critically low 6.4-8.2 [facility] Comment on above: Performed By: #### B MP #### [facility] [address] [address] [address] Ibis Jimenez Sodium [Moles/Vol] 140 mmol/L Normal 136-145 [facility] Comment on above: Performed By: #### B MP #### [facility] [address] [address] [address] Ibis Jimenez Urea nitrogen [Mass/Vol] 10.0 mg/dL Normal 7.0-18.0 [facility] Comment on above: Performed By: #### B MP #### [facility] [address] [address] [address] Ibis Jimenez Urea nitrogen/Creatinine [Mass ratio] 12.5 mg/mg Normal [facility] Comment on above: Performed By: #### B MP #### [facility] [address] [address] [address] Ibis Jimenez CBC AUTO DIFFon 01-14-2022 BASO # 0.0 103/ul Normal 0.0-0.1 [facility] Comment on above: Performed By: #### A MM #### [facility] [address] [address] [address] Ibis Jimenez Basophils/100 WBC (Bld) 0.3 % Normal 0.2-2.0 [facility] Comment on above: Performed By: #### A MM #### [facility] [address] [address] [address] Ibis Jimenez EO # 0.2 103/ul Normal 0.0-0.7 [facility] Comment on above: Performed By: #### A MM #### [facility] [address] [place] [address] Dr. Ibis Jimenez Eosinophils/100 WBC (Bld) 2.7 % Normal 0.9-7.0 [facility] Comment on above: Performed By: #### A MM #### [facility] [address] [place] [address] Dr. Ibis Jimenez Erythrocyte distribution width (RBC) [Ratio] 13.2 % Normal 11.0-15.0 [facility] Comment on above: Performed By: #### A MM #### [facility] [address] [place] [address] Dr. Ibis Jimenez Hematocrit (Bld) [Volume fraction] 35.7 % Critically low 36.0-48.0 [facility] Comment on above: Performed By: #### A MM #### [facility] [address] [place] [address] Dr. Ibis Jimenez Hemoglobin (Bld) [Mass/Vol] 12.2 g/dL Normal 12.0-16.0 [facility] Comment on above: Performed By: #### A MM #### [facility] [address] [place] [address] Dr. Ibis Jimenez IG # 0.04 10e3/ul Critically high 0.00-0.03 [facility] Comment on above: Performed By: #### A MM #### [facility] [address] [place] [address] Dr. Ibis Jimenez IG % 0.5 % Normal 0.0-0.5 [facility] Comment on above: Performed By: #### A MM #### [facility] [address] [place] [address] Dr. Ibis Jimenez LYMPH # 2.1 103/ul Normal 1.2-3.8 [facility] Comment on above: Performed By: #### A MM #### [facility] [address] [place] [address] Dr. Ibis Jimenez Lymphocytes/100 WBC (Bld) 27.3 % Normal 20.5-60.0 [facility] Comment on above: Performed By: #### A MM #### [facility] [address] [place] [address] Dr. Ibis Jimenez MANUAL DIFF REQ NO Normal [facility] Comment on above: Performed By: #### A MM #### [facility] [address] [place] [address] Dr. Ibis Jimenez MCH (RBC) [Entitic mass] 29.0 pg Normal 26.7-34.0 [facility] Comment on above: Performed By: #### A MM #### [facility] [address] [place] [address] Dr. Ibis Jimenez MCHC (RBC) [Mass/Vol] 34.2 g/dL Normal 29.9-35.2 [facility] Comment on above: Performed By: #### A MM #### [facility] [address] [place] [address] Dr. Ibis Jimenez MCV (RBC) [Entitic vol] 84.8 fL Normal 81.0-99.0 [facility] Comment on above: Performed By: #### A MM #### [facility] [address] [place] [address] Dr. Ibis Jimenez MONO # 0.7 103/ul Normal 0.3-0.8 [facility] Comment on above: Performed By: #### A MM #### [facility] [address] [place] [address] Dr. Ibis Jimenez Monocytes/100 WBC (Bld) 8.7 % Normal 1.7-12.0 [facility] Comment on above: Performed By: #### A MM #### [facility] [address] [place] [address] Dr. Ibis Jimenez NEUT # 4.7 103/ul Normal 1.4-6.5 [facility] Comment on above: Performed By: #### A MM #### [facility] [address] [place] [address] Dr. Ibis Jimenez Neutrophils/100 WBC (Bld) 60.5 % Normal 43.0-75.0 [facility] Comment on above: Performed By: #### A MM #### [facility] [address] [place] [address] Dr. Ibis Jimenez Platelet mean volume (Bld) [Entitic vol] 9.6 fL Normal 9.5-13.5 [facility] Comment on above: Performed By: #### A MM #### [facility] [address] [place] [address] Dr. Ibis Jimenez PLT 212 103/ul Normal 150-450 [facility] Comment on above: Performed By: #### A MM #### [facility] [address] [place] [address] Dr. Ibis Jimenez RBC 4.21 106/ul Normal 4.20-5.40 [facility] Comment on above: Performed By: #### A MM #### [facility] [address] [place] [address] Dr. Ibis Jimenez WBC 7.7 103/ul Normal 4.0-11.0 [facility] Comment on above: Performed By: #### A MM #### [facility] [address] [place] [address] ABD/PELV W CONon [...] by: TONY DAHL Date: 2022-01-14 20:[address] [facility] ER URINE PROFILEon 2 Bilirubin Ql (U) Negative Normal NEGATIVE [facility] Comment on above: Performed By: #### A CET, SALYC #### [facility] [address] [place] [address] Dr. Ibis Jimenez Clarity (U) CLEAR Normal CLEAR [facility] Comment on above: Performed By: #### A CET, SALYC #### [facility] [address] [place] [address] Dr. Ibis Jimenez Color (U) LT. YELLOW Normal YELLOW [facility] Comment on above: Performed By: #### A CET, SALYC #### [facility] [address] [address] [address] Ibis Jimenez ERUAHD A micrscopic examination will be performed if indicated. Normal [facility] Comment on above: Performed By: #### A CET, SALYC #### [facility] [address] [place] [address] Dr. Ibis Jimenez Glucose Ql (U) Negative Normal NEGATIVE [facility] Comment on above: Performed By: #### A CET, SALYC #### [facility] [address] [place] [address] Dr. Ibis Jimenez Hemoglobin Ql (U) Negative Normal NEGATIVE [facility] Comment on above: Performed By: #### A CET, SALYC #### [facility] [address] [place] [address] Dr. Ibis Jimenez Ketones Ql (U) Negative Normal NEGATIVE [facility] Comment on above: Performed By: #### A CET, SALYC #### [facility] [address] [place] [address] Dr. Ibis Jimenez LEUKOCYTES TRACE Abnormal NEGATIVE [facility] Comment on above: Performed By: #### A CET, SALYC #### [facility] [address] [place] [address] Dr. Ibis Jimenez Nitrite Ql (U) Negative Normal NEGATIVE [place] Comment on above: Performed By: #### A CET, SALYC #### [facility] [address] [place] [address] Dr. Ibis Jimenez pH (U) 5.5 [pH] Normal 5-9 [facility] Comment on above: Performed By: #### A CET, SALYC #### [facility] [address] [place] [address] Dr. Ibis Jimenez SPEC GRAVITY 1.025 Normal 1.005-<=1.[address] [facility] Comment on above: Performed By: #### A CET, SALYC #### [facility] [address] [place] [address] Dr. Ibis Jimenez UA PROTEIN Negative Normal NEGATIVE/ TRACE [facility] Comment on above: Performed By: #### A CET, SALYC #### [facility] [address] [place] [address] Dr. Ibis Jimenez UR MICRO IND INDICATED Normal [facility] Comment on above: Performed By: #### A CET, SALYC #### [facility] [address] [place] [address] Dr. Ibis Jimenez Urobilinogen Qn (U) 0.2 {Dinorah'U}/dL Normal 0.2 - 1. 0 [facility] Comment on above: Performed By: #### A CET, SALYC #### [facility] [address] [address] [address] Ibis Jimenez URon 01-14-2022 , QUAL Negative Normal NEGATIVE [facility] Comment on above: Performed By: #### A CET, SALYC #### [facility] [address] [address] [address] Ibis Jimenez PROF CHEM 8 (BAS METB)on Anion gap [Moles/Vol] 9.9 mmol/L Normal [facility] Comment on above: Performed By: #### B MP #### [facility] [address] [address] [address] Ibis Jimenez Calcium [Mass/Vol] 8.6 mg/dL Normal 8.5-10.1 [facility] Comment on above: Performed By: #### B MP #### [facility] [address] [address] [address] Ibis Jimenez Chloride [Moles/Vol] 105 mmol/L Normal 98-107 [facility] Comment on above: Performed By: #### B MP #### [facility] [address] [address] [address] Ibis Jimenez CO2 [Moles/Vol] 27.5 mmol/L Normal 21.0-32.0 [facility] Comment on above: Performed By: #### B MP #### [facility] [address] [address] [address] Ibis Jimenez Creatinine [Mass/Vol] 0.70 mg/dL Normal 0.55-1.02 [facility] Comment on above: Performed By: #### B MP #### [facility] [address] [address] [address] Ibis Jimenez EGFR-AF CYMRAES >60 Normal >=60 [facility] Comment on above: Performed By: #### B MP #### [facility] [address] [address] [address] Ibis Jimenez EGFR-NON AF CYMRAES >60 Normal >=60 [facility] Comment on above: Performed By: #### B MP #### [facility] [address] [address] [address] Ibis Jimenez Glucose [Mass/Vol] 83 mg/dL Normal 74-106 [facility] Comment on above: Performed By: #### B MP #### [facility] [address] [place] [address] Dr. Ibis Jimenez Potassium [Moles/Vol] 4.4 mmol/L Normal 3.5-5.1 [facility] Comment on above: Performed By: #### B MP #### [facility] [address] [place] [address] Dr. Ibis Jimenez Sodium [Moles/Vol] 138 mmol/L Normal 136-145 [facility] Comment on above: Performed By: #### B MP #### [facility] [address] [place] [address] Dr. Ibis Jimenez Urea nitrogen [Mass/Vol] 13.0 mg/dL Normal 7.0-18.0 [facility] Comment on above: Performed By: #### B MP #### [facility] [address] [place] [address] Dr. Ibis Jimenez Urea nitrogen/Creatinine [Mass ratio] 18.6 mg/mg Normal [facility] Comment on above: Performed By: #### B MP #### [facility] [address] [place] [address] Dr. Ibis Jimenez URINE MICROSCOPIC ONLYon BACTERIA NONE SEEN Normal NONE SEEN [facility] Comment on above: Performed By: #### A CET SALYC #### [facility] [address] [place] [address] Dr. Ibis Jimenez Bacteria identified Cx Nom (U) NOT INDICATED Normal [facility] Comment on above: Performed By: #### A CET, SALYC #### [facility] [address] [place] [address] Dr. Ibis Jimenez CAST NONE SEEN Normal NONE SEEN [facility] Comment on above: Performed By: #### A CET, SALYC #### [facility] [address] [place] [address] Dr. Ibis Jimenez Crystals LM Nom (Urine sed) NONE SEEN Normal NONE SEEN [facility] Comment on above: Performed By: #### A CET, SALYC #### [facility] [address] [place] [address] Dr. Ibis Jimenez Epithelial cells LM Ql (Urine sed) FEW Abnormal NONE SEEN /RARE [facility] Comment on above: Performed By: #### A CET, SALYC #### [facility] [address] [place] [address] Dr. Ibis Jimenez MUCOUS NONE SEEN Normal NONE SEEN [facility] Comment on above: Performed By: #### A CET, SALYC #### [facility] [address] [place] [address] Dr. Ibis Jimenez RBC NONE SEEN Abnormal 0-2 [facility] Comment on above: Performed By: #### A CET, SALYC #### [facility] [address] [place] [address] Dr. Ibis Jimenez WBC NONE SEEN Normal NONE SEEN [facility] Comment on above: Performed By: #### A CET, SALYC #### [facility] [address] [place] [address] Dr. Ibis Jimenez CBC AUTO DIFFon 01-07-2022 BASO # 0.0 103/ul Normal 0.0-0.1 [facility] Comment on above: Performed By: #### A CET, SALYC #### [facility] [address] [place] [address] Dr. Ibis Jimenez Basophils/100 WBC (Bld) 0.2 % Normal 0.2-2.0 [facility] Comment on above: Performed By: #### A CET, SALYC #### [facility] [address] [place] [address] Dr. Ibis Jimenez EO # 0.0 103/ul Normal 0.0-0.7 [facility] Comment on above: Performed By: #### A CET, SALYC #### [facility] [address] [place] [address] Dr. Ibis Jimenez Eosinophils/100 WBC (Bld) 0.4 % Critically low 0.9-7.0 [facility] Comment on above: Performed By: #### A CET, SALYC #### [facility] [address] [place] [address] Dr. Ibis Jimenez Erythrocyte distribution width (RBC) [Ratio] 13.2 % Normal 11.0-15.0 [facility] Comment on above: Performed By: #### A CET, SALYC #### [facility] [address] [place] [address] Dr. Ibis Jimenez Hematocrit (Bld) [Volume fraction] 39.7 % Normal 36.0-48.0 [facility] Comment on above: Performed By: #### A CET, SALYC #### [facility] [address] [place] [address] Dr. Ibis Jimenez Hemoglobin (Bld) [Mass/Vol] 13.4 g/dL Normal 12.0-16.0 [facility] Comment on above: Performed By: #### A CET, SALYC #### [facility] [address] [place] [address] Dr. Ibis Jimenez IG # 0.06 10e3/ul Critically high 0.00-0.03 [facility] Comment on above: Performed By: #### A CET, SALYC #### [facility] [address] [place] [address] Dr. Ibis Jimenez IG % 0.5 % Normal 0.0-0.5 [facility] Comment on above: Performed By: #### A CET, SALYC #### [facility] [address] [place] [address] Dr. Ibis Jimenez LYMPH # 2.6 103/ul Normal 1.2-3.8 [facility] Comment on above: Performed By: #### A CET, SALYC #### [facility] [address] [place] [address] Dr. Ibis Jimenez Lymphocytes/100 WBC (Bld) 23.8 % Normal 20.5-60.0 [facility] Comment on above: Performed By: #### A CET, SALYC #### [facility] [address] [place] [address] Dr. Ibis Jimenez MANUAL DIFF REQ NO Normal [facility] Comment on above: Performed By: #### A CET, SALYC #### [facility] [address] [place] [address] Dr. Ibis Jimenez MCH (RBC) [Entitic mass] 28.8 pg Normal 26.7-34.0 [facility] Comment on above: Performed By: #### A CET, SALYC #### [facility] [address] [place] [address] Dr. Ibis Jimenez MCHC (RBC) [Mass/Vol] 33.8 g/dL Normal 29.9-35.2 [facility] Comment on above: Performed By: #### A CET, SALYC #### [facility] [address] [place] [address] Dr. Ibis Jimenez MCV (RBC) [Entitic vol] 85.2 fL Normal 81.0-99.0 [facility] Comment on above: Performed By: #### A CET, SALYC #### [facility] [address] [place] [address] Dr. Ibis Jimenez MONO # 0.8 103/ul Normal 0.3-0.8 [facility] Comment on above: Performed By: #### A CET, SALYC #### [facility] [address] [place] [address] Dr. Ibis Jimenez Monocytes/100 WBC (Bld) 7.7 % Normal 1.7-12.0 [facility] Comment on above: Performed By: #### A CET, SALYC #### [facility] [address] [place] [address] Dr. Ibis Jimenez NEUT # 7.4 103/ul Critically high 1.4-6.5 [facility] Comment on above: Performed By: #### A CET, SALYC #### [facility] [address] [place] [address] Dr. Ibis Jimenez Neutrophils/100 WBC (Bld) 67.4 % Normal 43.0-75.0 [facility] Comment on above: Performed By: #### A CET, SALYC #### [facility] [address] [place] [address] Dr. Ibis Jimenez Platelet mean volume (Bld) [Entitic vol] 9.8 fL Normal 9.5-13.5 [facility] Comment on above: Performed By: #### A CET, SALYC #### [facility] [address] [place] [address] Dr. Ibis Jimenez PLT 261 103/ul Normal 150-450 [facility] Comment on above: Performed By: #### A CET, SALYC #### [facility] [address] [place] [address] Dr. Ibis Jimenez RBC 4.66 106/ul Normal 4.20-5.40 [facility] Comment on above: Performed By: #### A CET, SALYC #### [facility] [address] [place] [address] Dr. Ibis Jimenez WBC 10.9 103/ul Normal 4.0-11.0 [facility] Comment on above: Performed By: #### A CET, SALYC #### [facility] [address] [place] [address] Dr. Ibis Jimenez PROF CHEM 8 (BAS METB)on Anion gap [Moles/Vol] 14.1 mmol/L Normal [facility] Comment on above: Performed By: #### B MP #### [facility] [address] [place] [address] Dr. Ibis Jimenez Calcium [Mass/Vol] 8.5 mg/dL Normal 8.5-10.1 [facility] Comment on above: Performed By: #### B MP #### [facility] [address] [place] [address] Dr. Ibis Jimenez Chloride [Moles/Vol] 103 mmol/L Normal 98-107 [facility] Comment on above: Performed By: #### B MP #### [facility] [address] [place] [address] Dr. Ibis Jimenez CO2 [Moles/Vol] 22.5 mmol/L Normal 21.0-32.0 [facility] Comment on above: Performed By: #### B MP #### [facility] [address] [address] [address] Ibis Jimenez Creatinine [Mass/Vol] 0.64 mg/dL Normal 0.55-1.02 [facility] Comment on above: Performed By: #### B MP #### [facility] [address] [address] [address] Ibis Jimenez EGFR-AF CYMRAES >60 Normal >=60 [facility] Comment on above: Performed By: #### B MP #### [facility] [address] [address] [address] Ibis Jimenez EGFR-NON AF CYMRAES >60 Normal >=60 [facility] Comment on above: Performed By: #### B MP #### [facility] [address] [address] [address] Ibis Jimenez Glucose [Mass/Vol] 141 mg/dL Critically high 74-106 [facility] Comment on above: Performed By: #### B MP #### [facility] [address] [address] [address] Ibis Jimenez Potassium [Moles/Vol] 3.6 mmol/L Normal 3.5-5.1 [facility] Comment on above: Performed By: #### B MP #### [facility] [address] [place] [address] Dr. Ibis Jimenez Sodium [Moles/Vol] 136 mmol/L Normal 136-145 [facility] Comment on above: Performed By: #### B MP #### [facility] [address] [address] [address] Ibis Jimeenz Urea nitrogen [Mass/Vol] 16.0 mg/dL Normal 7.0-18.0 [facility] Comment on above: Performed By: #### B MP #### [facility] [address] [place] [address] Dr. Ibis Jimenez Urea nitrogen/Creatinine [Mass ratio] 25.0 mg/mg Normal [facility] Comment on above: Performed By: #### B MP #### [facility] [address] [place] [address] Dr. Ibis Jimenez CBC AUTO DIFFon 11-04-2021 BASO # 0.0 103/ul Normal 0.0-0.1 [facility] [facility] Comment on above: Performed By: #### A CET, SALYC #### [facility] [address] [place] [address] Dr. Ibis Jimenez Basophils/100 WBC (Bld) 0.4 % Normal 0.2-2.0 [facility] Comment on above: Performed By: #### A CET, SALYC #### [facility] [address] [place] [address] Dr. Ibis Jimenez EO # 0.2 103/ul Normal 0.0-0.7 [facility] Comment on above: Performed By: #### A CET, SALYC #### [facility] [address] [place] [address] Dr. Ibis Jimenez Eosinophils/100 WBC (Bld) 4.1 % Normal 0.9-7.0 [facility] Comment on above: Performed By: #### A CET, SALYC #### [facility] [address] [place] [address] Dr. Ibis Jimenez Erythrocyte distribution width (RBC) [Ratio] 13.2 % Normal 11.0-15.0 [facility] Comment on above: Performed By: #### A CET, SALYC #### [facility] [address] [place] [address] Dr. Ibis Jimenez Hematocrit (Bld) [Volume fraction] 34.3 % Critically low 36.0-48.0 [facility] Comment on above: Performed By: #### A CET, SALYC #### [facility] [address] [place] [address] Dr. Ibis Jimenez Hemoglobin (Bld) [Mass/Vol] 11.5 g/dL Critically low 12.0-16.0 [facility] Comment on above: Performed By: #### A CET, SALYC #### [facility] [address] [place] [address] Dr. Ibis Jimenez IG # 0.01 10e3/ul Normal 0.00-0.03 [facility] Comment on above: Performed By: #### A CET, SALYC #### [facility] [address] [address] [address] Ibis Jimenez IG % 0.2 % Normal 0.0-0.5 [facility] Comment on above: Performed By: #### A CET, SALYC #### [facility] [address] [address] [address] Ibis Jimenez LYMPH # 1.5 103/ul Normal 1.2-3.8 [facility] Comment on above: Performed By: #### A CET, SALYC #### [facility] [address] [place] [address] Dr. Ibis Jimenez Lymphocytes/100 WBC (Bld) 26.4 % Normal 20.5-60.0 [facility] Comment on above: Performed By: #### A CET, SALYC #### [facility] [address] [place] [address] Dr. Ibis Jimenez MANUAL DIFF REQ NO Normal [facility] Comment on above: Performed By: #### A CET, SALYC #### [facility] [address] [place] [address] Dr. Ibis Jimenez MCH (RBC) [Entitic mass] 28.8 pg Normal 26.7-34.0 [facility] Comment on above: Performed By: #### A CET, SALYC #### [facility] [address] [place] [address] Dr. Ibis Jimenez MCHC (RBC) [Mass/Vol] 33.5 g/dL Normal 29.9-35.2 [facility] Comment on above: Performed By: #### A CET, SALYC #### [facility] [address] [place] [address] Dr. Ibis Jimenez MCV (RBC) [Entitic vol] 86.0 fL Normal 81.0-99.0 [facility] Comment on above: Performed By: #### A CET, SALYC #### [facility] [address] [place] [address] Dr. Ibis Jimenez MONO # 0.5 103/ul Normal 0.3-0.8 [facility] Comment on above: Performed By: #### A CET, SALYC #### [facility] [address] [address] [address] Ibis Jimenez Monocytes/100 WBC (Bld) 8.2 % Normal 1.7-12.0 [facility] Comment on above: Performed By: #### A CET, SALYC #### [facility] [address] [place] [address] Dr. Ibis Jimenez NEUT # 3.4 103/ul Normal 1.4-6.5 [facility] Comment on above: Performed By: #### A CET, SALYC #### [facility] [address] [place] [address] Dr. Ibis Jimenez Neutrophils/100 WBC (Bld) 60.7 % Normal 43.0-75.0 [facility] Comment on above: Performed By: #### A CET, SALYC #### [facility] [address] [place] [address] Dr. Ibis Jimenez Platelet mean volume (Bld) [Entitic vol] 9.9 fL Normal 9.5-13.5 [facility] Comment on above: Performed By: #### A CET, SALYC #### [facility] [address] [place] [address] Dr. Ibis Jimenez PLT 222 103/ul Normal 150-450 [facility] Comment on above: Performed By: #### A CET, SALYC #### [facility] [address] [place] [address] Dr. Ibis Jimenez RBC 3.99 106/ul Critically low 4.20-5.40 [facility] Comment on above: Performed By: #### A CET, SALYC #### [facility] [address] [place] [address] Dr. Ibis Jimenez WBC 5.6 103/ul Normal 4.0-11.0 [facility] Comment on above: Performed By: #### A CET, SALYC #### [facility] [address] [place] [address] Dr. Ibis Jimenez PROF CHEM 8 (BAS METB)on Anion gap [Moles/Vol] 10.5 mmol/L Normal Th [facility] Comment on above: Performed By: #### B MP #### [facility] [address] [address] [address] Ibis Jimenez Calcium [Mass/Vol] 8.8 mg/dL Normal 8.5-10.1 [facility] Comment on above: Performed By: #### B MP #### [facility] [address] [address] [address] Ibis Jimenez Chloride [Moles/Vol] 105 mmol/L Normal 98-107 [facility] Comment on above: Performed By: #### B MP #### [facility] [address] [place] [address] Dr. Ibis Jimenez CO2 [Moles/Vol] 24.9 mmol/L Normal 21.0-32.0 [facility] Comment on above: Performed By: #### B MP #### [facility] [address] [place] [address] Dr. Ibis Jimenez Creatinine [Mass/Vol] 0.71 mg/dL Normal 0.55-1.02 [facility] Comment on above: Performed By: #### B MP #### [facility] [address] [place] [address] Dr. Ibis Jimenez EGFR-AF CYMRAES >60 Normal >=60 [facility] Comment on above: Performed By: #### B MP #### [facility] [address] [place] [address] Dr. Ibis Jimenez EGFR-NON AF CYMRAES >60 Normal >=60 [facility] Comment on above: Performed By: #### B MP #### [facility] [address] [address] [address] Ibis Jimenez Glucose [Mass/Vol] 103 mg/dL Normal 74-106 [facility] Comment on above: Performed By: #### B MP #### [facility] [address] [place] [address] Dr. Ibis Jimenez Potassium [Moles/Vol] 3.4 mmol/L Critically low 3.5-5.1 [facility] Comment on above: Performed By: #### B MP #### [facility] [address] [place], [place] [address] Dr. Ibis Jimenez Sodium [Moles/Vol] 137 mmol/L Normal 136-145 [facility] Comment on above: Performed By: #### B MP #### [facility] [address] [place], [place] [address] Dr. Ibis Jimenez Urea nitrogen [Mass/Vol] 17.0 mg/dL Normal 7.0-18.0 [facility] Comment on above: Performed By: #### B MP #### [facility] [address] [place], [place] [address] Dr. Ibis Jimenez Urea nitrogen/Creatinine [Mass ratio] 23.9 mg/mg Normal [facility] Comment on above: Performed By: #### B MP #### [facility] [address] [place] [address] Dr. Ibis Jimenez Basic Metab w/rfx MGon 10-20 (cont.) Normal [facility] Comment on above: Result Comment: Aver age GFR for 20-29 years old: 116 mL/min/1.73sq m Chronic Kidney Disease: <60 mL/min/1.73sq m Kidney failure: <15 mL/min/1.73sq m eGFR calculated using average adult body mass. Additional eGFR calculator available at: http://www.[employer]/multiple_crcl_2012.htm Performed By: #### B MPX #### [facility] [employer] [address] [place], [place] [id number] [employer] Operator: Tavon Nicole MD Anion gap [Moles/Vol] 10 mmol/L Normal 9-17 [facility] Comment on above: Performed By: #### B MPX #### [facility] [employer] [address] [place] [address] [employer]: Tavon Nicole MD Calcium [Mass/Vol] 7.8 mg/dL Low 8.6-10.4 [facility] Comment on above: Performed By: #### B MPX #### [address] [address] [employer]: Tavon Nicole MD Chloride [Moles/Vol] 109 mmol/L High 98-107 [facility] Comment on above: Performed By: #### B MPX #### [address] [address] [employer]: Tavon Nicole MD CO2 [Moles/Vol] 20 mmol/L Normal 20-31 [facility] Comment on above: Performed By: #### B MPX #### [address] [address] [employer]: Tavon Nicole MD Creatinine [Mass/Vol] 0.45 mg/dL Low 0.50-0.90 [facility] Comment on above: Performed By: #### B MPX #### [address] [address] [employer]: Tavon Nicole MD GFR, Amer >60 Normal >60 [facility] Comment on above: Performed By: #### B MPX #### [address] [address] [employer] Operator: Tavon Nicole MD GFR,non Amer >60 Normal >60 [facility] Comment on above: Performed By: #### B MPX #### [address] [address] [employer] Operator: Tavon Nicole MD Glucose [Mass/Vol] 84 mg/dL Normal 70-99 [facility] Comment on above: Performed By: #### B MPX #### [address] [address] [employer] Operator: Tavon Nicole MD Potassium [Moles/Vol] 4.1 mmol/L Normal 3.7-5.3 [facility] Comment on above: Result Comment: SPEC IMEN SLIGHTLY HEMOLYZED, RESULTS MAY BE ADVERSELY AFFECTED. Performed By: #### B MPX #### [facility] [address] [place], [place] [id number] [employer] Operator: Tavon Nicole MD Sodium [Moles/Vol] 139 mmol/L Normal 135-144 [facility] Comment on above: Performed By: #### B MPX #### [facility] [address] [place], [place] [id number] [employer] Operator: Tavon Nicole MD Urea nitrogen [Mass/Vol] 8 mg/dL Normal 6-20 [facility] Comment on above: Performed By: #### B MPX #### [facility] [place], [place] [phone] [employer] Operator: Tavon Nicole MD Basic Metabolic Panel w/ Ref rossi to MGon 10-20-2021 Anion gap [Moles/Vol] 10 mmol/L 9 - 17 mmol/L [facility] Calcium [Mass/Vol] 7.8 mg/dL Low 8.6 - 10. 4 mg/dL [employer] [email or web address] Chloride [Moles/Vol] 109 mmol/L High 98 - 10 7 mmol/L [employer] [facility] CO2 [Moles/Vol] 20 mmol/L 20 - 31 mmol/L [facility] Creatinine [Mass/Vol] 0.45 mg/dL Low 0.5 - 0.9 mg/dL [facility] GFR >60 60 - PI NF mL/min [facility] GFR Non- >60 60 - PINF mL/min [facility] GFR/1.73 sq M.predicted MDRD (S/P/Bld) [Vol rate/Area] [facility] Comment on above: Average GFR for 20-2 9 years old: 116 mL/min/1.73sq m Chronic Kidney Disease: <60 mL/min/1.73sq m Kidney failure: <15 mL/min/1.73sq m eGFR calculated using average adult body mass. Additional eGFR calculator available at: http://www.[employer]rph.[employer]/multiple_crcl_2012.htm Glucose [Mass/Vol] 84 mg/dL 70 - 99 mg/dL [facility] Interpretation and review of laboratory results Abnormal [facility] Potassium [Moles/Vol] 4.1 mmol/L 3.7 - 5.3 mmol/L [facility] Comment on above: SPECIMEN SLIGHTLY HE MOLYZED, RESULTS MAY BE ADVERSELY AFFECTED. Sodium [Moles/Vol] 139 mmol/L 135 - 144 mmol/L [facility] Urea nitrogen (BldV) [Mass/Vol] 8 mg/dL 6 - 20 mg/dL [facility] CBC with Auto Differentialon 10-20-2021 Absolute Eos # 0.15 [facility] Absolute Immature Granulocyte [facility] Absolute Lymph # 1.48 [facility] Absolute Runnels # 0.28 [facility] Basophils (Bld) [#/Vol] 0.03 10*3/uL [facility] Basophils/100 WBC (Bld) 1 % 0 - 2 % B ON [facility] Eosinophils/100 WBC (Bld) 3 % 1 - 4 % [facility] Hematocrit (Bld) [Volume fraction] 35.5 % Low 36.3 - 47.1 % [facility] Hemoglobin (Bld) [Mass/Vol] 11.3 g/dL Low 11.9 - 15.1 g/dL [facility] Immature granulocytes/100 WBC (Bld) 0 % 0 [facility] Interpretation and review of laboratory results Abnormal [facility] Lymphocytes/100 WBC (Bld) 34 % 24 - 43 % [facility] MCH (RBC) [Entitic mass] 27.9 pg 25.2 - 33.5 pg [facility] MCHC (RBC) [Mass/Vol] 31.8 g/dL 28.4 - 34.8 g/dL [facility] MCV (RBC) [Entitic vol] 87.7 fL 82.6 - 102.9 fL [facility] Monocytes/100 WBC (Bld) 6 % 3 - 12 % B ON [facility] NRBC Automated 0.0 0.0 per 100 WBC [facility] Platelet distribution width (Bld) [Ratio] 12.9 % 11.8 - 14.4 % [facility] Platelets (Bld) [#/Vol] See Reflexed IPF Result [facility] RBC (Bld) [#/Vol] 4.05 10*6/uL 3.95 - 5.1 1 m/uL [facility] Segmented neutrophils/100 WBC (Bld) 55 % 36 - 65 % [facility] Segs Absolute 2.42 [facility] WBC (Bld) [#/Vol] 4.4 10*3/uL [facility] CBC with Diffon 10-20-2021 Abs. Basophil 0.03 k/uL Normal 0.00-0.20 [facility] Comment on above: Performed By: #### C DP, IPF #### [place] [address] [employer]: Tavon Nicole MD Abs.Imm.Granulocyte <0.03 Normal 0.00-0.30 [facility] Comment on above: Performed By: #### C DP, IPF #### [place] [address] [employer] Operator: Tavon Nicole MD Abs.Neutrophil (Seg) 2.42 k/uL Normal 1.50-8.10 [facility] Comment on above: Performed By: #### C DP, IPF #### [place] [address] [employer] Operator: Tavon Nicole MD Basophils/100 WBC (Bld) 1 % Normal 0-2 [facility] Comment on above: Performed By: #### C DP, IPF #### [facility] [employer] [address] [place] [address] [employer] Operator: Tavon Nicole MD Eosinophils (Bld) [#/Vol] 0.15 10*3/uL Normal 0.00-0.44 [facility] Comment on above: Performed By: #### C DP, IPF #### [address] [address] [employer] Operator: Tavon Nicole MD Eosinophils/100 WBC (Bld) 3 % Normal 1-4 [facility] Comment on above: Performed By: #### C DP, IPF #### [address] [address] [employer] Operator: Tavon Nicole MD Immature granulocytes/100 WBC (Bld) 0 % Normal 0 [facility] Comment on above: Performed By: #### C DP, IPF #### [address] [address] [employer] Operator: Tavon Nicole MD Lymphocytes (Bld) [#/Vol] 1.48 10*3/uL Normal 1.10-3.70 [facility] Comment on above: Performed By: #### C DP, IPF #### [address] [address] [employer] Operator: Tavon Nicole MD Lymphocytes/100 WBC (Bld) 34 % Normal 24-43 [facility] Comment on above: Performed By: #### C DP, IPF #### [address] [address] [employer] Operator: Tavon Nicole MD Monocytes (Bld) [#/Vol] 0.28 10*3/uL Normal 0.10-1.20 [facility] Comment on above: Performed By: #### C DP, IPF #### [address] [address] [employer] Operator: Tavon Nicole MD Monocytes/100 WBC (Bld) 6 % Normal 3-12 [facility] Comment on above: Performed By: #### C DP, IPF #### [address] [place] [address] [employer] Operator: Tavon Nicole MD Neutrophil (Seg) 55 % Normal 36-65 [facility] Comment on above: Performed By: #### C DP, IPF #### [address] [address] [employer] Operator: Tavon Nicole MD Erythrocyte distribution width (RBC) [Ratio] 12.9 % Normal 11.8-14.4 [facility] Comment on above: Performed By: #### C DP, IPF #### [address] [address] [employer] Operator: Tavon Nicole MD Hematocrit (Bld) [Volume fraction] 35.5 % Low 36.3-47.1 [facility] Comment on above: Performed By: #### C DP, IPF #### [address] [address] [employer] Operator: Tavon Nicole MD Hemoglobin (Bld) [Mass/Vol] 11.3 g/dL Low 11.9-15.1 [facility] Comment on above: Performed By: #### C DP, IPF #### [address] [address] [employer] Operator: Tavon Nicole MD MCH (RBC) [Entitic mass] 27.9 pg Normal 25.2-33.5 [facility] Comment on above: Performed By: #### C DP, IPF #### [address] [address] [employer] Operator: Tavon Nicole MD MCHC (RBC) [Mass/Vol] 31.8 g/dL Normal 28.4-34.8 [facility] Comment on above: Performed By: #### C DP, IPF #### [address] [address] [employer] Operator: Tavon Nicole MD MCV (RBC) [Entitic vol] 87.7 fL Normal 82.6-102.9 [facility] Comment on above: Performed By: #### C DP, IPF #### [address] [address] [employer] Operator: Tavon Nicole MD NRBC Automated 0.0 per 100 WBC Normal 0.0 [facility] Comment on above: Performed By: #### C DP, IPF #### [address] [address] [employer] Operator: Tavon Nicole MD Platelet Count See Reflexed IPF Result Normal 138-453 [facility] Comment on above: Performed By: #### C DP, IPF #### [address] [address] [employer] Operator: Tavon Nicole MD RBC (Bld) [#/Vol] 4.05 10*6/uL Normal 3.95-5.11 [facility] Comment on above: Performed By: #### C DP, IPF #### [address] [address] [employer] Operator: Tavon Nicole MD WBC (Bld) [#/Vol] 4.4 10*3/uL Normal 3.5-11.3 [facility] Comment on above: Performed By: #### C DP, IPF #### [address] [address] [employer] Operator: Tavon Nicole MD EEG video monitoringon 10-20 Raiza Land MD 10/20/2021 12:11 PM Referring physician: Chris Blanchard APRN Date:10/20/2021 Start Time:10/19/2021 @1258 End Time: 10/20/2021 @ 1200 Indication Patient with recurrent events Introduction This continuous video-EEG was acquired using a [employer] workstation at 256 samples/s. Electrodes were placed [...] Board Certified. Neurology Board Certified. Electronically Signed [facility] Work Phone: EEG video monitoringOrdered By: Raiza Land on 10-20-2021 [facility] Work Phone: Immature Platelet Fractionon 10-20-2021 Platelet, Fluorescence Platelet clumps present, count appears adequate. [facility] O&P Pro PLT, Immature Fract.on 10-20 Platelet, Fluoresc. Platelet clumps present, count appears adequate. Normal 138-453 [facility] Comment on above: Performed By: #### C DP, IPF #### [employer] [address] [place] [address] [employer]fer Machine Operator: Tavon Nicole MD PROLACTINon 10-20-2021 Prolactin 41.7 ng/mL Critically high 4.8-23.3 [facility] Comment on above: Performed By: #### C VDTBH #### [facility] [address] [place], [place] [address] Dr. Ibis Jimenez CBCon 10-19-2021 Erythrocyte distribution width (RBC) [Ratio] 12.9 % Normal 11.8-14.4 [facility] Comment on above: Performed By: #### T ROPI, LACTIC, CMPX, CBC #### [address] [address] [employer] Operator: Tavon Nicole MD Hematocrit (Bld) [Volume fraction] 31.5 % Low 36.3-47.1 [facility] Comment on above: Performed By: #### T ROPI, LACTIC, CMPX, CBC #### [facility] [employer] [address] [place] [address] Wafer Machine Operator: Tavon Nicole MD Hemoglobin (Bld) [Mass/Vol] 10.8 g/dL Low 11.9-15.1 [facility] Comment on above: Performed By: #### T ROPI, LACTIC, CMPX, CBC #### [facility] [employer] [address] [place] [address] Wafer Machine Operator: Tavon Nicole MD MCH (RBC) [Entitic mass] 29.1 pg Normal 25.2-33.5 [facility] Comment on above: Performed By: #### T ROPI, LACTIC, CMPX, CBC #### [facility] [employer] [address] [place] [address] Wa[employer] Operator: Tavon Nicole MD MCHC (RBC) [Mass/Vol] 34.3 g/dL Normal 28.4-34.8 [facility] Comment on above: Performed By: #### T ROPI, LACTIC, CMPX, CBC #### [place] [address] [employer] Operator: Tavon Nicole MD MCV (RBC) [Entitic vol] 84.9 fL Normal 82.6-102.9 [facility] Comment on above: Performed By: #### T ROPI, LACTIC, CMPX, CBC #### [place] [address] [employer] Operator: Tavon Nicole MD NRBC Automated 0.0 per 100 WBC Normal 0.0 [facility] Comment on above: Performed By: #### T ROPI, LACTIC, CMPX, CBC #### [facility] [address] [place] [address] [employer] Operator: Tavon Nicole MD Platelet mean volume (Bld) [Entitic vol] 9.8 fL Normal 8.1-13.5 [facility] Comment on above: Performed By: #### T ROPI, LACTIC, CMPX, CBC #### [facility] [employer] [address] [place] [address] [employer] Operator: Tavon Nicole MD Platelets (Bld) [#/Vol] 281 10*3/uL Normal 138-453 [facility] Comment on above: Performed By: #### T ROPI, LACTIC, CMPX, CBC #### [facility] [employer] [address] [place] [address] Wa[employer] Operator: Tavon Nicole MD RBC (Bld) [#/Vol] 3.71 10*6/uL Low 3.95-5.11 [facility] Comment on above: Performed By: #### T ROPI, LACTIC, CMPX, CBC #### [facility] [employer] [address] [place] [address] [employer] Operator: Tavon Nicole MD WBC (Bld) [#/Vol] 5.0 10*3/uL Normal 3.5-11.3 [facility] Comment on above: Performed By: #### T ROPI, LACTIC, CMPX, CBC #### [facility] [employer] [address] [place] [address] [employer] Operator: Tavon Nicole MD Hematocrit (Bld) [Volume fraction] 31.5 % Low 36.3 - 47.1 % [facility] Hemoglobin (Bld) [Mass/Vol] 10.8 g/dL Low 11.9 - 15.1 g/dL [facility] Interpretation and review of laboratory results Abnormal [facility] MCH (RBC) [Entitic mass] 29.1 pg 25.2 - 33.5 pg [facility] MCHC (RBC) [Mass/Vol] 34.3 g/dL 28.4 - 34.8 g/dL [facility] MCV (RBC) [Entitic vol] 84.9 fL 82.6 - 102.9 fL [facility] NRBC Automated 0.0 0.0 per 100 WBC [facility] Platelet distribution width (Bld) [Ratio] 12.9 % 11.8 - 14.4 % [facility] Platelet mean volume (Bld) [Entitic vol] 9.8 fL 8.1 - 13.5 fL [facility] Platelets (Bld) [#/Vol] 281 10*3/uL [facility] RBC (Bld) [#/Vol] 3.71 10*6/uL Low 3.95 - 5.1 1 m/uL [facility] WBC (Bld) [#/Vol] 5.0 10*3/uL [facility] CBC AUTO DIFFon 10-19-2021 EO # 0.2 103/ul Normal 0.0-0.7 [facility] Comment on above: Performed By: #### A MM #### [facility] [address] [address] [address] Ibis Jimenez Eosinophils/100 WBC (Bld) 3.9 % Normal 0.9-7.0 [facility] Comment on above: Performed By: #### A MM #### [facility] [address] [address] [address] Ibis Jimenez Erythrocyte distribution width (RBC) [Ratio] 13.1 % Normal 11.0-15.0 [facility] Comment on above: Performed By: #### A MM #### [facility] [address] [address] [address] Ibis Jimenez Hematocrit (Bld) [Volume fraction] 33.4 % Critically low 36.0-48.0 [facility] Comment on above: Performed By: #### A MM #### [facility] [address] [place] [address] Dr. Ibis Jimenez Hemoglobin (Bld) [Mass/Vol] 11.1 g/dL Critically low 12.0-16.0 [facility] Comment on above: Performed By: #### A MM #### [facility] [address] [place] [address] Dr. Ibis Jimenez LYMPH # 1.2 103/ul Normal 1.2-3.8 [facility] Comment on above: Performed By: #### A MM #### [facility] [address] [place] [address] Dr. Ibis Jimenez Lymphocytes/100 WBC (Bld) 25.9 % Normal 20.5-60.0 [facility] Comment on above: Performed By: #### A MM #### [facility] [address] [place] [address] Dr. Ibis Jimenez MCHC (RBC) [Mass/Vol] 33.2 g/dL Normal 29.9-35.2 [facility] Comment on above: Performed By: #### A MM #### [facility] [address] [place] [address] Dr. Ibis Jimenez MCV (RBC) [Entitic vol] 85.9 fL Normal 81.0-99.0 [facility] Comment on above: Performed By: #### A MM #### [facility] [address] [place] [address] Dr. Ibis Jimenez Monocytes/100 WBC (Bld) 7.7 % Normal 1.7-12.0 [facility] Comment on above: Performed By: #### A MM #### [facility] [address] [place] [address] Dr. Ibis Jimenez NEUT # 2.9 103/ul Normal 1.4-6.5 [facility] Comment on above: Performed By: #### A MM #### [facility] [address] [place] [address] Dr. Ibis Jimenez Neutrophils/100 WBC (Bld) 61.5 % Normal 43.0-75.0 [facility] Comment on above: Performed By: #### A MM #### [facility] [address] [place] [address] Dr. Ibis Jimenez PLT 264 103/ul Normal 150-450 [facility] Comment on above: Performed By: #### A MM #### [facility] [address] [place] [address] Dr. Ibis Jimenez RBC 3.89 106/ul Critically low 4.20-5.40 [facility] Comment on above: Performed By: #### A MM #### [facility] [address] [place] [address] Dr. Ibis Jimenez WBC 4.7 103/ul Normal 4.0-11.0 [facility] Comment on above: Performed By: #### A MM #### [facility] [address] [place] [address] Dr. Ibis Jimenez BASO # 0.0 103/ul Normal 0.0-0.1 [facility] Comment on above: Performed By: #### A MM #### [facility] [address] [place] [address] Dr. Ibis Jimenez Performed By: #### C VDTB #### [facility] [address] [place] [address] Dr. Ibis Jimenez Basophils/100 WBC (Bld) 0.6 % Normal 0.2-2.0 [facility] Comment on above: Performed By: #### A MM #### [facility] [address] [place] [address] Dr. Ibis Jimenez Performed By: #### C VDTBH #### [facility] [address] [place] [address] Dr. Ibis Jimenez EO # 0.3 103/ul Normal 0.0-0.7 [facility] Comment on above: Performed By: #### C VDTBH #### [facility] [address] [place] [address] Dr. Ibis Jimenez Eosinophils/100 WBC (Bld) 5.0 % Normal 0.9-7.0 [facility] Comment on above: Performed By: #### C VDTBH #### [facility] [address] [place] [address] Dr. Ibis Jimenez Erythrocyte distribution width (RBC) [Ratio] 12.8 % Normal 11.0-15.0 [facility] Comment on above: Performed By: #### C VDTBH #### [facility] [address] [place] [address] Dr. Ibis Jimenez Hematocrit (Bld) [Volume fraction] 38.0 % Normal 36.0-48.0 [facility] Comment on above: Performed By: #### C VDTBH #### [facility] [address] [place] [address] Dr. Ibis Jimenez Hemoglobin (Bld) [Mass/Vol] 12.7 g/dL Normal 12.0-16.0 [facility] Comment on above: Performed By: #### C VDTBH #### [facility] [address] [place] [address] Dr. Ibis Jimenez IG # 0.02 10e3/ul Normal 0.00-0.03 [facility] Comment on above: Performed By: #### A MM #### [facility] [address] [place] [address] Dr. Ibis Jimenez Performed By: #### C VDTBH #### [facility] [address] [place] [address] Dr. Ibis Jimenez IG % 0.4 % Normal 0.0-0.5 [facility] Comment on above: Performed By: #### A MM #### [facility] [address] [place] [address] Dr. Ibis Jimenez Performed By: #### C VDTBH #### [facility] [address] [place] [address] Dr. Ibis Jimenez LYMPH # 1.7 103/ul Normal 1.2-3.8 [facility] Comment on above: Performed By: #### C VDTBH #### [facility] [address] [place] [address] Dr. Ibis Jimenez Lymphocytes/100 WBC (Bld) 30.7 % Normal 20.5-60.0 [facility] Comment on above: Performed By: #### C VDTBH #### [facility] [address] [place] [address] Dr. Ibis Jimenez MANUAL DIFF REQ NO Normal [facility] Comment on above: Performed By: #### A MM #### [facility] [address] [place] [address] Dr. Ibis Jimenez Performed By: #### C VDTBH #### [facility] [address] [place] [address] Dr. Ibis Jimenez MCH (RBC) [Entitic mass] 28.5 pg Normal 26.7-34.0 [facility] Comment on above: Performed By: #### A MM #### [facility] [address] [place] [address] Dr. Ibis Jimenez Performed By: #### C VDTBH #### [facility] [address] [place] [address] Dr. Ibis Jimenez MCHC (RBC) [Mass/Vol] 33.4 g/dL Normal 29.9-35.2 [facility] Comment on above: Performed By: #### C VDTBH #### [facility] [address] [place] [address] Dr. Ibis Jimenez MCV (RBC) [Entitic vol] 85.2 fL Normal 81.0-99.0 [facility] Comment on above: Performed By: #### C VDTBH #### [facility] [address] [place] [address] Dr. Ibis Jimenez MONO # 0.4 103/ul Normal 0.3-0.8 [facility] Comment on above: Performed By: #### A MM #### [facility] [address] [place] [address] Dr. Ibis Jimenez Performed By: #### C VDTBH #### [facility] [address] [place] [address] Dr. Ibis Jimenez Monocytes/100 WBC (Bld) 8.1 % Normal 1.7-12.0 [facility] Comment on above: Performed By: #### C VDTBH #### [facility] [address] [place] [address] Dr. Ibsi Jimenez NEUT # 3.0 103/ul Normal 1.4-6.5 [facility] Comment on above: Performed By: #### C VDTBH #### [facility] [address] [place] [address] Dr. Ibis Jimenez Neutrophils/100 WBC (Bld) 55.2 % Normal 43.0-75.0 [facility] Comment on above: Performed By: #### C VDTBH #### [facility] [address] [place] [address] Dr. Ibis Jimenez Platelet mean volume (Bld) [Entitic vol] 9.5 fL Normal 9.5-13.5 [facility] Comment on above: Performed By: #### A MM #### [facility] [address] [place] [address] Dr. Ibis Jimenez Performed By: #### C VDTBH #### [facility] [address] [place] [address] Dr. Ibis Jimenez PLT 343 103/ul Normal 150-450 [facility] Comment on above: Performed By: #### C VDTBH #### [facility] [address] [place] [address] Dr. Ibis Jimenez RBC 4.46 106/ul Normal 4.20-5.40 [facility] Comment on above: Performed By: #### C VDTBH #### [facility] [address] [place] [address] Dr. Ibis Jimenez WBC 5.4 103/ul Normal 4.0-11.0 [facility] Comment on above: Performed By: #### C VDTBH #### [facility] [address] [place] [address] HEAD WO CONon [...] by: LOPEZ REYNOLDS Date: 2021-10-19 07:[address] [facility] Comp Metabolic Pr/rfx MGon 0 10-19-2021 (cont.) Normal [facility] Comment on above: Result Comment: Aver age GFR for 20-29 years old: 116 mL/min/1.73sq m Chronic Kidney Disease: <60 mL/min/1.73sq m Kidney failure: <15 mL/min/1.73sq m eGFR calculated using average adult body mass. Additional eGFR calculator available at: http://www.[employer]/multiple_crcl_2012.htm Performed By: #### T ROPI, LACTIC, CMPX, CBC #### [facility] [employer] [address] [place] [id number] [employer] Operator: Tavon Nicole MD Albumin [Mass/Vol] 3.5 g/dL Normal 3.5-5.2 [facility] Comment on above: Performed By: #### T ROPI LACTIC, CMPX, CBC #### [facility] [address] [place] [address] [phone] [employer] Operator: Tavon Nicole MD Albumin/Glob Ratio 1.4 Normal 1.0-2.5 [facility] Comment on above: Performed By: #### T ROPI, LACTIC, CMPX, CBC #### [employer] [address] [place] [id number] [employer] Operator: Tavon Nicole MD Alkaline Phos 69 U/L Normal 35-104 [facility] Comment on above: Performed By: #### T ROPI, LACTIC, CMPX, CBC #### [facility] [address] [place] [phone] [employer] Operator: Tavon Nicole MD ALT [Catalytic activity/Vol] 15 U/L Normal 5-33 [facility] Comment on above: Performed By: #### T ROPI, LACTIC, CMPX, CBC #### [facility] [address] [place] [address] [id number] [employer] Operator: Tavon Nicole MD Anion gap [Moles/Vol] 13 mmol/L Normal 9-17 [facility] Comment on above: Performed By: #### T ROPI, LACTIC, CMPX, CBC #### [facility] [employer] [address] [place] [address] [phone] [employer] Operator: Tavon Nicole MD AST [Catalytic activity/Vol] 12 U/L Normal <32 [facility] Comment on above: Performed By: #### T ROPI, LACTIC, CMPX, CBC #### [address] [id number] [employer] Operator: Tavon Nicole MD Bilirubin [Mass/Vol] 0.24 mg/dL Low 0.3-1.2 [facility] Comment on above: Performed By: #### T ROPI, LACTIC, CMPX, CBC #### [facility] [employer] [address] [place] [phone] [employer] Operator: Tavon Nicole MD Calcium [Mass/Vol] 8.1 mg/dL Low 8.6-10.4 [facility] Comment on above: Performed By: #### T ROPI, LACTIC, CMPX, CBC #### [facility] [employer] [address] [place] [id number] Wa[employer] Operator: Tavon Nicole MD Chloride [Moles/Vol] 107 mmol/L Normal 98-107 [facility] Comment on above: Performed By: #### T ROPI, LACTIC, CMPX, CBC #### [facility] [address] [place] [phone] [employer] Operator: Tavon Nicole MD CO2 [Moles/Vol] 19 mmol/L Low 20-31 [facility] Comment on above: Performed By: #### T ROPI, LACTIC, CMPX, CBC #### [facility] [address] [place] [address] [phone] [employer] Operator: Tavon Nicole MD Creatinine [Mass/Vol] 0.53 mg/dL Normal 0.50-0.90 [facility] Comment on above: Performed By: #### T ROPI, LACTIC, CMPX, CBC #### [facility] [address] [place] [address] [phone] Wa[employer] Operator: Tavon Nicole MD GFR, Amer >60 Normal >60 [facility] Comment on above: Performed By: #### T ROPI, LACTIC, CMPX, CBC #### [facility] [address] [place] [id number] Wa[employer] Operator: Tavon Nicole MD GFR,non Amer >60 Normal >60 [facility] Comment on above: Performed By: #### T ROPI, LACTIC, CMPX, CBC #### [facility] [employer] [address] [place] [phone] Wafer Machine Operator: Tavon Nicole MD Glucose [Mass/Vol] 81 mg/dL Normal 70-99 [facility] Comment on above: Performed By: #### T ROPI, LACTIC, CMPX, CBC #### [facility] [address] [place] [phone] Wa[employer] Operator: Tavon Nicole MD Potassium [Moles/Vol] 3.9 mmol/L Normal 3.7-5.3 [facility] Comment on above: Performed By: #### T ROPI, LACTIC, CMPX, CBC #### [facility] [address] [place], [place] [phone] [employer] Operator: Tavon Nicole MD Protein [Mass/Vol] 6.0 g/dL Low 6.4-8.3 [facility] Comment on above: Performed By: #### T ROPI, LACTIC, CMPX, CBC #### [facility] [address] [place], [place] [phone] [employer] Operator: Tavon Nicole MD Sodium [Moles/Vol] 139 mmol/L Normal 135-144 [facility] Comment on above: Performed By: #### T ROPI, LACTIC, CMPX, CBC #### [facility] [address] [place], [place] [phone] [employer] Operator: Tavon Nicole MD Urea nitrogen [Mass/Vol] 10 mg/dL Normal 6-20 [facility] Comment on above: Performed By: #### T ROPI, LACTIC, CMPX, CBC #### [facility] [address] [place], [place] [phone] [employer] Operator: Tavon Nicole MD Comprehensive Metabolic Pane l w/ Reflex to MGon 10-19-2021 Albumin [Mass/Vol] 3.5 g/dL 3.5 - 5.2 g/dL [facility] Albumin/Globulin [Mass ratio] 1.4 {ratio} 1 - 2.5 [facility] ALP (Bld) [Catalytic activity/Vol] 69 U/L 35 - 104 U/L [facility] ALT [Catalytic activity/Vol] 15 U/L 5 - 33 U/L [facility] Anion gap [Moles/Vol] 13 mmol/L 9 - 17 mmol/L [facility] AST [Catalytic activity/Vol] 12 U/L NINF - 32 U/L [facility] Bilirubin [Mass/Vol] 0.24 mg/dL Low 0.3 - 1 .2 mg/dL [facility] Calcium [Mass/Vol] 8.1 mg/dL Low 8.6 - 10. 4 mg/dL [facility] Chloride [Moles/Vol] 107 mmol/L 98 - 10 7 mmol/L [facility] CO2 [Moles/Vol] 19 mmol/L Low 20 - 31 mmol/L [facility] Creatinine [Mass/Vol] 0.53 mg/dL 0.5 - 0.9 mg/dL [facility] Free PSA/Total PSA [Mass fraction] 6.0 g/dL Low 6.4 - 8.3 g/dL [facility] GFR >60 60 - PI NF mL/min [facility] GFR Non- >60 60 - PINF mL/min [facility] GFR/1.73 sq M.predicted MDRD (S/P/Bld) [Vol rate/Area] [facility] Comment on above: Average GFR for 20-2 9 years old: 116 mL/min/1.73sq m Chronic Kidney Disease: <60 mL/min/1.73sq m Kidney failure: <15 mL/min/1.73sq m eGFR calculated using average adult body mass. Additional eGFR calculator available at: http://www.[employer]/multiple_crcl_2012.htm Glucose [Mass/Vol] 81 mg/dL 70 - 99 mg/dL [facility] Interpretation and review of laboratory results Abnormal [facility] Potassium [Moles/Vol] 3.9 mmol/L 3.7 - 5.3 mmol/L [facility] Sodium [Moles/Vol] 139 mmol/L 135 - 144 mmol/L [facility] Urea nitrogen (BldV) [Mass/Vol] 10 mg/dL 6 - 20 mg/dL [facility] Covid-19 PCR (CVDTB)on 09-22 SARS-CoV-2 (COVID-19) RNA SAURABH+probe Ql (Unsp spec) Not detected Normal NOT DETECTED [facility] Comment on above: Result Comment: When [...] for this test is supported by the [employer] and Human Service's declaration that [...] used). Performed By: #### C VDTB #### [facility] [address] [place] [address] Dr. Ibis Jimenez DRUG SCREEN RAPID (URINE)on 10-19-2021 AMP Negative Normal NEGATIVE [facility] Comment on above: Performed By: #### B MP #### [facility] [address] [place] [address] Dr. Ibis Jimenez BAR Positive Abnormal NEGATIVE [facility] Comment on above: Performed By: #### B MP #### [facility] [address] [place] [address] Dr. Ibis Jimenez BUP Negative Normal NEGATIVE [facility] Comment on above: Performed By: #### B MP #### [facility] [address] [place] [address] Dr. Ibis Jimenez BZO Positive Abnormal NEGATIVE [facility] Comment on above: Performed By: #### B MP #### [facility] [address] [place] [address] Dr. Ibis Jimenez SEMAJ Negative Normal NEGATIVE [facility] Comment on above: Performed By: #### B MP #### [facility] [address] [place] [address] Dr. Ibis Jimenez CUT-OFFS SEE BELOW Normal [facility] Comment on above: Result Comment: AMP [...] ng/mL Performed By: #### B MP #### [facility] [address] [place] [address] Dr. Ibis Jimenez DRUG CUT HEADER DRUG CLASS TEST SYSTEM CUT-OFF CONCENTRATIONS ARE FOLLOWS: Normal [facility] Comment on above: Performed By: #### B MP #### [facility] [address] [place] [address] Dr. Ibis Jimenez mAMP Negative Normal NEGATIVE [facility] Comment on above: Performed By: #### B MP #### [facility] [address] [place] [address] Dr. Ibis Jimenez MTD Negative Normal NEGATIVE [facility] Comment on above: Performed By: #### B MP #### [facility] [address] [place] [address] Dr. Ibis Jimenez OPI Positive Abnormal NEGATIVE [facility] Comment on above: Performed By: #### B MP #### [facility] [address] [place] [address] Dr. Ibis Jimenez OXY Positive Abnormal NEGATIVE [facility] Comment on above: Performed By: #### B MP #### [facility] [address] [place] [address] Dr. Iibs Jimenez PCP Negative Normal NEGATIVE [facility] Comment on above: Performed By: #### B MP #### [facility] [address] [place] [address] Dr. Ibis Jimenez PPX Negative Normal NEGATIVE [facility] Comment on above: Performed By: #### B MP #### [facility] [address] [place] [address] Dr. Ibis Jimenez TCA Negative Normal NEGATIVE [facility] Comment on above: Performed By: #### B MP #### [facility] [address] [place] [address] Dr. Ibis Jimenez THC Negative Normal NEGATIVE [facility] Comment on above: Performed By: #### B MP #### [facility] [address] [place] [address] Dr. Ibis Jimenez ER URINE PROFILEon 2 Bilirubin Ql (U) Negative Normal NEGATIVE [facility] Comment on above: Performed By: #### B MP #### [facility] [address] [place] [address] Dr. Ibis Jimenez Clarity (U) CLEAR Normal CLEAR [facility] Comment on above: Performed By: #### B MP #### [facility] [address] [place] [address] Dr. Ibis Jimenez Color (U) YELLOW Normal YELLOW [facility] Comment on above: Performed By: #### B MP #### [facility] [address] [place] [address] Dr. Ibis RODRIGUEZ A micrscopic examination will be performed if indicated. Normal [facility] Comment on above: Performed By: #### B MP #### [facility] [address] [place] [address] Dr. Ibis Jimenez Glucose Ql (U) Negative Normal NEGATIVE [place] Comment on above: Performed By: #### B MP #### [facility] [address] [place] [address] Dr. Ibis Jimenez Hemoglobin Ql (U) TRACE-INTACT Abnormal NEGATIVE [facility] Comment on above: Performed By: #### B MP #### [facility] [address] [place] [address] Dr. Ibis Jimenez Ketones Ql (U) Negative Normal NEGATIVE [place] Comment on above: Performed By: #### B MP #### [facility] [address] [place] [address] Dr. Ibis Jimenez LEUKOCYTES Negative Normal NEGATIVE [facility] Comment on above: Performed By: #### B MP #### [facility] [address] [place] [address] Dr. Ibis Jimenez Nitrite Ql (U) Negative Normal NEGATIVE [place] Comment on above: Performed By: #### B MP #### [facility] [address] [place] [address] Dr. Ibis Jimenez pH (U) 5.5 [pH] Normal 5-9 [facility] Comment on above: Performed By: #### B MP #### [facility] [address] [place] [address] Dr. Ibis Jimenez SPEC GRAVITY >=1.030 Abnormal 1.005-<=1.[address] [facility] Comment on above: Performed By: #### B MP #### [facility] [address] [place] [address] Dr. Ibis Jimenez UA PROTEIN Negative Normal NEGATIVE/ TRACE [facility] Comment on above: Performed By: #### B MP #### [facility] [address] [place] [address] Dr. Ibis Jimenez UR MICRO IND INDICATED Normal [facility] Comment on above: Performed By: #### B MP #### [facility] [address] [place] [address] Dr. Ibis Jimenez Urobilinogen Qn (U) 0.2 {Dinorah'U}/dL Normal 0.2 - 1. 0 [facility] Comment on above: Performed By: #### B MP #### [facility] [address] [place] [address] Dr. Ibis Jimenez LACTATE/LACTIC ACIDon 2021 Lactate [Moles/Vol] 1.2 mmol/L Normal 0.4-1.9 [facility] Comment on above: Performed By: #### A MM #### [facility] [address] [place] [address] Dr. Ibis Jimenez Lactic Acidon 10-19-2021 Lactic Acid,Whole Bl 0.9 mmol/L Normal 0.7-2.1 [facility] Comment on above: Performed By: #### T ROPI, LACTIC, CMPX, CBC #### [place] [id number] [place] [phone] [employer] Machine Operator: Tavon Nicole MD Lactic Acid, Whole Blood 0.9 mmol/L 0.7 - 2.1 mmol/L [facility] MONOon 10-19-2021 Monocytes (Bld) [#/Vol] Negative Normal NEGATIVE [facility] Comment on above: Performed By: #### M DAVID #### [facility] [address] [place] [address] [address] Ibis Jimenez MRI BRAIN W WO [...] Carlos Marks DO 10/19/21 Final result Normal [facility] Unremarkable MR brain. [facility] RIS CONSOLIDATED EXAMINATION: MRI OF THE BRAIN [...] The soft tissues demonstrate no acute abnormality. [facility] RIS Carlos Uribe, DO - 10/19/2021 EXAMINATION: MRI OF THE [...] no acute abnormality. IMPRESSION: Unremarkable MR brain. [facility] Phone: Radiology Study observation (narrative) [employer] [facility] Phone: MRI BRAIN W WO CONTRASTOrder ed By: Carlos Marks on 10-19-2021 [facility] Phone: PH VENOUS BLOODon 10-19-2021 PCO2 VENOUS 36.6 mmHg Critically low 40.0-52.0 [facility] Comment on above: Performed By: #### B MP #### [facility] [address] [place] [address] [address] Ibis Jimenez pH VENOUS 7.387 Normal 7.330-7.430 [facility] Comment on above: Performed By: #### B MP #### [facility] [address] [place] [address] [address] Ibis Jimenez PROF CHEM 8 (BAS METB)on Anion gap [Moles/Vol] 11.9 mmol/L Normal [facility] Comment on above: Performed By: #### M DAVID #### [facility] [address] [place] [address] Dr. Ibis Jimenez Calcium [Mass/Vol] 9.1 mg/dL Normal 8.5-10.1 [facility] Comment on above: Performed By: #### M DAVID #### [facility] [address] [address] [address] Ibis Jimenez Chloride [Moles/Vol] 104 mmol/L Normal 98-107 [facility] Comment on above: Performed By: #### M DAVID #### [facility] [address] [place] [address] Dr. Ibis Jimenez CO2 [Moles/Vol] 26.7 mmol/L Normal 21.0-32.0 [facility] Comment on above: Performed By: #### M DAVID #### [facility] [address] [address] [address] Ibis Jimenez Creatinine [Mass/Vol] 0.78 mg/dL Normal 0.55-1.02 [facility] Comment on above: Performed By: #### M DAVID #### [facility] [address] [address] [address] Ibis Jimenez EGFR-AF CYMRAES >60 Normal >=60 [facility] Comment on above: Performed By: #### M DAVID #### [facility] [address] [place] [address] [address] Ibis Jimenez EGFR-NON AF CYMRAES >60 Normal >=60 [facility] Comment on above: Performed By: #### M DAVID #### [facility] [address] [place] [address] [address] Ibis Jimenez Glucose [Mass/Vol] 96 mg/dL Normal 74-106 [facility] Comment on above: Performed By: #### M DAVID #### [facility] [address] [address] [address] Ibis Jimenez Potassium [Moles/Vol] 3.6 mmol/L Normal 3.5-5.1 [facility] Comment on above: Performed By: #### M DAVID #### [facility] [address] [address] [address] Ibis Jimenez Sodium [Moles/Vol] 139 mmol/L Normal 136-145 [facility] Comment on above: Performed By: #### M DAVID #### [facility] [address] [address] Dr[address] Ibis Jimenez Urea nitrogen [Mass/Vol] 14.0 mg/dL Normal 7.0-18.0 [facility] Comment on above: Performed By: #### M DAVID #### [facility] [address] [address] [address] Ibis Jimenez Urea nitrogen/Creatinine [Mass ratio] 17.9 mg/mg Normal [facility] Comment on above: Performed By: #### M DAVID #### [facility] [address] [address] [address] Ibis Jimenez TSHon 10-19-2021 TSH 1.389 uIU/mL Normal 0.358-3.740 [facility] Comment on above: Performed By: #### A KORI DAVIS #### [facility] [address] [address] [address] Ibis Jimenez Troponinon 10-19-2021 Troponin, High Sens <6 Normal 0-14 [facility] Comment on above: Result Comment: High Sensitivity Troponin values cannot be compared with other Troponin methodologies. Patients with high levels of Biotin oral intake (i.e >5mg/day) may have falsely decreased Troponin levels. Samples collected within 8 hours of biotin intake may require additional information for diagnosis. Performed By: #### T ROPI, LACTIC, CMPX, CBC #### [facility] [address] [place] [address] [employer] Machine Operator: Tavon Nicole MD Troponin, High Sensitivity ng/L 0 - 14 ng/L [facility] Comment on above: High Sensitivity Troponin values cannot be compared with other Troponin methodologies. Patients with high levels of Biotin oral intake (i.e >5mg/day) may have falsely decreased Troponin levels. Samples collected within 8 hours of biotin intake may require additional information for diagnosis. [facility] URINE MICROSCOPIC ONLYon BACTERIA TRACE Abnormal NONE SEEN [facility] Comment on above: Performed By: #### B MP #### [facility] [address] [place] [address] Dr. Ibis Jimenez Bacteria identified Cx Nom (U) NOT INDICATED Normal [facility] Comment on above: Performed By: #### B MP #### [facility] [address] [place] [address] Dr. Ibis Jimenez CAST NONE SEEN Normal NONE SEEN [facility] Comment on above: Performed By: #### B MP #### [facility] [address] [place] [address] Dr. Ibis Jimenez Crystals LM Nom (Urine sed) NONE SEEN Normal NONE SEEN [facility] Comment on above: Performed By: #### B MP #### [facility] [address] [place] [address] Dr. Ibis Jimenez Epithelial cells LM Ql (Urine sed) RARE Normal NONE SEEN /RARE [facility] Comment on above: Performed By: #### B MP #### [facility] [address] [place] [address] Dr. Ibis Jimenez MUCOUS LARGE Abnormal NONE SEEN [facility] Comment on above: Performed By: #### B MP #### [facility] [address] [place] [address] Dr. Ibis Jimenez RBC 2-5 Abnormal 0-2 [facility] Comment on above: Performed By: #### B MP #### [facility] [address] [place], [place] [address] Dr. Ibis Jimenez WBC 0-2 Abnormal NONE SEEN [facility] Comment on above: Performed By: #### B MP #### [facility] [address] [place], [place] [address] ABD/PELVIS WO CONon [...] JASS LAURENT Date: 2021-10-06 20:08 Normal [facility] URINE PROFILEon 2 Bilirubin Ql (U) Negative Normal NEGATIVE [facility] Comment on above: Performed By: #### M DAVID #### [facility] [address] [address] [address] Ibis Jimenez Clarity (U) CLEAR Normal CLEAR [facility] Comment on above: Performed By: #### M DAVID #### [facility] [address] [address] [address] Ibis Jimenez Color (U) LT. YELLOW Normal YELLOW [facility] Comment on above: Performed By: #### M DAVID #### [facility] [address] [address] [address] Ibis RODRIGUEZ A micrscopic examination will be performed if indicated. Normal [facility] Comment on above: Performed By: #### M DAVID #### [facility] [address] [place] [address] Dr. Ibis Jimenez Glucose Ql (U) Negative Normal NEGATIVE [facility] Comment on above: Performed By: #### M DAIVD #### [facility] [address] [place] [address] Dr. Ibis Jimenez Hemoglobin Ql (U) Negative Normal NEGATIVE [facility] Comment on above: Performed By: #### M DAVID #### [facility] [address] [address] [address] Ibis Jimenez Ketones Ql (U) Negative Normal NEGATIVE [facility] Comment on above: Performed By: #### M DAVID #### [facility] [address] [address] [address] Ibis Jimenez LEUKOCYTES Negative Normal NEGATIVE [facility] Comment on above: Performed By: #### M DAVID #### [facility] [address] [address] [address] Ibis Jimenez Nitrite Ql (U) Negative Normal NEGATIVE [facility] Comment on above: Performed By: #### M DAVID #### [facility] [address] [place] [address] Dr. Ibis Jimenez pH (U) 8.0 [pH] Normal 5-9 [facility] Comment on above: Performed By: #### M DAVID #### [facility] [address] [address] [address] Ibis Jimenez SPEC GRAVITY 1.010 Normal 1.005-<=1.[address] [facility] Comment on above: Performed By: #### M DAVID #### [facility] [address] [address] [address] Ibis Jimenez UA PROTEIN Negative Normal NEGATIVE/ TRACE [facility] Comment on above: Performed By: #### M DAVID #### [facility] [address] [address] [address] Ibis Jimenez UR MICRO IND NOT INDICATED Normal [facility] Comment on above: Performed By: #### M DAVID #### [facility] [address] [address] [address] bIis Jimenez Urobilinogen Qn (U) 0.2 {Dinorah'U}/dL Normal 0.2 - 1. 0 [facility] Comment on above: Performed By: #### M DAVID #### [facility] [address] [address] [address] Ibis Jimenez ER URINE PROFILEon 2 Bilirubin Ql (U) Negative Normal NEGATIVE [facility] Comment on above: Performed By: #### C VDTBH #### [facility] [address] [place] [address] Dr. Ibis Jimenez Clarity (U) CLEAR Normal CLEAR [facility] Comment on above: Performed By: #### C VDTBH #### [facility] [address] [address] [address] Ibis Jimenez Color (U) YELLOW Normal YELLOW [facility] Comment on above: Performed By: #### C VDTBH #### [facility] [address] [address] [address] Ibis RODRIGUEZ A micrscopic examination will be performed if indicated. Normal [facility] Comment on above: Performed By: #### C VDTBH #### [facility] [address] [address] [address] Ibis Jimenez Glucose Ql (U) Negative Normal NEGATIVE [facility] Comment on above: Performed By: #### C VDTBH #### [facility] [address] [place] [address] Dr. Ibis Jimenez Hemoglobin Ql (U) Negative Normal NEGATIVE [facility] Comment on above: Performed By: #### C VDTBH #### [facility] [address] [place] [address] Dr. Ibis Jimenez Ketones Ql (U) Negative Normal NEGATIVE [facility] Comment on above: Performed By: #### C VDTBH #### [facility] [address] [place] [address] Dr. Ibis Jimenez LEUKOCYTES Negative Normal NEGATIVE [facility] Comment on above: Performed By: #### C VDTBH #### [facility] [address] [place] [address] Dr. Ibis Jimenez Nitrite Ql (U) Negative Normal NEGATIVE [place] Comment on above: Performed By: #### C VDTBH #### [facility] [address] [place] [address] Dr. Ibis Jimenez pH (U) 6.0 [pH] Normal 5-9 [facility] Comment on above: Performed By: #### C VDTBH #### [facility] [address] [place] [address] Dr. Ibis Jimenez SPEC GRAVITY 1.025 Normal 1.005-<=1.[address] [facility] Comment on above: Performed By: #### C VDTBH #### [facility] [address] [place] [address] Dr. Ibis Jimenez UA PROTEIN Negative Normal NEGATIVE/ TRACE [facility] Comment on above: Performed By: #### C VDTBH #### [facility] [address] [place] [address] Dr. Ibis Jimenez UR MICRO IND NOT INDICATED Normal [facility] Comment on above: Performed By: #### C VDTBH #### [facility] [address] [place] [address] Dr. Ibis Jimenez Urobilinogen Qn (U) 0.2 {Dinorah'U}/dL Normal 0.2 - 1. 0 [facility] Comment on above: Performed By: #### C VDTBH #### [facility] [address] [place] [address] Dr. Ibis Jimenez CBC AUTO DIFFon 10-03-2021 BASO # 0.0 103/ul Normal 0.0-0.1 [facility] Comment on above: Performed By: #### B MP #### [facility] [address] [place] [address] Dr. Ibis Jimenez Basophils/100 WBC (Bld) 0.3 % Normal 0.2-2.0 [facility] Comment on above: Performed By: #### B MP #### [facility] [address] [place] [address] Dr. Ibis Jimenez EO # 0.3 103/ul Normal 0.0-0.7 [facility] Comment on above: Performed By: #### B MP #### [facility] [address] [place] [address] Dr. Ibis Jimenez Eosinophils/100 WBC (Bld) 4.1 % Normal 0.9-7.0 [facility] Comment on above: Performed By: #### B MP #### [facility] [address] [place] [address] Dr. Ibis Jimenez Erythrocyte distribution width (RBC) [Ratio] 13.2 % Normal 11.0-15.0 [facility] Comment on above: Performed By: #### B MP #### [facility] [address] [place] [address] Dr. Ibis Jimenez Hematocrit (Bld) [Volume fraction] 35.7 % Critically low 36.0-48.0 [facility] Comment on above: Performed By: #### B MP #### [facility] [address] [place] [address] Dr. Ibis Jimenez Hemoglobin (Bld) [Mass/Vol] 11.6 g/dL Critically low 12.0-16.0 [facility] Comment on above: Performed By: #### B MP #### [facility] [address] [place] [address] Dr. Ibis Jimenez IG # 0.02 10e3/ul Normal 0.00-0.03 [facility] Comment on above: Performed By: #### B MP #### [facility] [address] [place] [address] Dr. Ibis Jimenez IG % 0.3 % Normal 0.0-0.5 [facility] Comment on above: Performed By: #### B MP #### [facility] [address] [place] [address] Dr. Ibis Jimenez LYMPH # 1.5 103/ul Normal 1.2-3.8 [facility] Comment on above: Performed By: #### B MP #### [facility] [address] [place] [address] Dr. Ibis Jimenez Lymphocytes/100 WBC (Bld) 24.3 % Normal 20.5-60.0 [facility] Comment on above: Performed By: #### B MP #### [facility] [address] [place] [address] Dr. Ibis Jimenez MANUAL DIFF REQ NO Normal [facility] Comment on above: Performed By: #### B MP #### [facility] [address] [place] [address] Dr. Ibis Jimenez MCH (RBC) [Entitic mass] 28.9 pg Normal 26.7-34.0 [facility] Comment on above: Performed By: #### B MP #### [facility] [address] [place] [address] Dr. Ibis Jimenez MCHC (RBC) [Mass/Vol] 32.5 g/dL Normal 29.9-35.2 [facility] Comment on above: Performed By: #### B MP #### [facility] [address] [place] [address] Dr. Ibis Jimenez MCV (RBC) [Entitic vol] 89.0 fL Normal 81.0-99.0 [facility] Comment on above: Performed By: #### B MP #### [facility] [address] [place] [address] Dr. Ibis Jimenez MONO # 0.5 103/ul Normal 0.3-0.8 [facility] Comment on above: Performed By: #### B MP #### [facility] [address] [address] [address] Ibis Jimenez Monocytes/100 WBC (Bld) 7.3 % Normal 1.7-12.0 [facility] Comment on above: Performed By: #### B MP #### [facility] [address] [address] [address] Ibis Jimenez NEUT # 4.0 103/ul Normal 1.4-6.5 [facility] Comment on above: Performed By: #### B MP #### [facility] [address] [address] [address] Ibis Jimenez Neutrophils/100 WBC (Bld) 63.7 % Normal 43.0-75.0 [facility] Comment on above: Performed By: #### B MP #### [facility] [address] [address] [address] Ibis Jimenez Platelet mean volume (Bld) [Entitic vol] 9.7 fL Normal 9.5-13.5 [facility] Comment on above: Performed By: #### B MP #### [facility] [address] [address] [address] Ibis Jimenez PLT 237 103/ul Normal 150-450 [facility] Comment on above: Performed By: #### B MP #### [facility] [address] [address] [address] Ibis Jimenez RBC 4.01 106/ul Critically low 4.20-5.40 [facility] Comment on above: Performed By: #### B MP #### [facility] [address] [address] [address] Ibis Jimenez WBC 6.3 103/ul Normal 4.0-11.0 [facility] Comment on above: Performed By: #### B MP #### [facility] [address] [address] [address] Ibis Jimenez LACTATE/LACTIC ACIDon 2021 Lactate [Moles/Vol] 1.2 mmol/L Normal 0.4-1.9 [facility] Comment on above: Performed By: #### A MM #### [facility] [address] [place] [address] Dr. Ibis Jimenez BUNon 10-02-2021 Urea nitrogen [Mass/Vol] 7.0 mg/dL Normal 7.0-18.0 [facility] Comment on above: Performed By: #### C VDTB #### [facility] [address] [place] [address] Dr. Ibis Jimenez CBC AUTO DIFFon 10-02-2021 BASO # 0.0 103/ul Normal 0.0-0.1 [facility] Comment on above: Performed By: #### A MM #### [facility] [address] [place] [address] Dr. Ibis Jimenez Basophils/100 WBC (Bld) 0.2 % Normal 0.2-2.0 [facility] Comment on above: Performed By: #### A MM #### [facility] [address] [place] [address] Dr. Ibis Jimenez EO # 0.0 103/ul Normal 0.0-0.7 [facility] Comment on above: Performed By: #### A MM #### [facility] [address] [place] [address] Dr. Ibis Jimenez Eosinophils/100 WBC (Bld) 0.3 % Critically low 0.9-7.0 [facility] Comment on above: Performed By: #### A MM #### [facility] [address] [place] [address] Dr. Ibis Jimenez Erythrocyte distribution width (RBC) [Ratio] 12.7 % Normal 11.0-15.0 [facility] Comment on above: Performed By: #### A MM #### [facility] [address] [place] [address] Dr. Ibis Jimenez Hematocrit (Bld) [Volume fraction] 43.4 % Normal 36.0-48.0 [facility] Comment on above: Performed By: #### A MM #### [facility] [address] [place] [address] Dr. Ibis Jimenez Hemoglobin (Bld) [Mass/Vol] 14.6 g/dL Normal 12.0-16.0 [facility] Comment on above: Performed By: #### A MM #### [facility] [address] [place] [address] Dr. Ibis Jimenez IG # 0.03 10e3/ul Normal 0.00-0.03 [facility] Comment on above: Performed By: #### A MM #### [facility] [address] [place] [address] Dr. Ibis Jimenez IG % 0.3 % Normal 0.0-0.5 [facility] Comment on above: Performed By: #### A MM #### [facility] [address] [place] [address] Dr. Ibis Jimenez LYMPH # 1.2 103/ul Normal 1.2-3.8 [facility] Comment on above: Performed By: #### A MM #### [facility] [address] [place] [address] Dr. Ibis Jimenez Lymphocytes/100 WBC (Bld) 11.6 % Critically low 20.5-60.0 [facility] Comment on above: Performed By: #### A MM #### [facility] [address] [place] [address] Dr. Ibis Jimenez MANUAL DIFF REQ NO Normal [facility] Comment on above: Performed By: #### A MM #### [facility] [address] [place] [address] Dr. Ibis Jimenez MCH (RBC) [Entitic mass] 28.5 pg Normal 26.7-34.0 [facility] Comment on above: Performed By: #### A MM #### [facility] [address] [place] [address] Dr. Ibis Jimenez MCHC (RBC) [Mass/Vol] 33.6 g/dL Normal 29.9-35.2 [facility] Comment on above: Performed By: #### A MM #### [facility] [address] [place] [address] Dr. Ibis Jimenez MCV (RBC) [Entitic vol] 84.6 fL Normal 81.0-99.0 [facility] Comment on above: Performed By: #### A MM #### [facility] [address] [place] [address] Dr. Ibis Jimenez MONO # 0.6 103/ul Normal 0.3-0.8 [facility] Comment on above: Performed By: #### A MM #### [facility] [address] [place] [address] Dr. Ibis Jimenez Monocytes/100 WBC (Bld) 5.9 % Normal 1.7-12.0 [facility] Comment on above: Performed By: #### A MM #### [facility] [address] [place] [address] Dr. Ibis Jimenez NEUT # 8.2 103/ul Critically high 1.4-6.5 [facility] Comment on above: Performed By: #### A MM #### [facility] [address] [place] [address] Dr. Ibis Jimenez Neutrophils/100 WBC (Bld) 81.7 % Critically high 43.0-75.0 [facility] Comment on above: Performed By: #### A MM #### [facility] [address] [place] [address] Dr. Ibis Jimenez Platelet mean volume (Bld) [Entitic vol] 9.8 fL Normal 9.5-13.5 [facility] Comment on above: Performed By: #### A MM #### [facility] [address] [place] [address] Dr. Ibis Jimenez PLT 264 103/ul Normal 150-450 [facility] Comment on above: Performed By: #### A MM #### [facility] [address] [place] [address] Dr. Ibis Jimenez RBC 5.13 106/ul Normal 4.20-5.40 [facility] Comment on above: Performed By: #### A MM #### [facility] [address] [place] [address] Dr. Ibis Jimenez WBC 10.1 103/ul Normal 4.0-11.0 [facility] Comment on above: Performed By: #### A MM #### [facility] [address] [place] [address] Dr. Ibis Jimenez CREATININEon 10-02-2021 Creatinine [Mass/Vol] 0.69 mg/dL Normal 0.55-1.02 [facility] Comment on above: Performed By: #### C VDTBH #### [facility] [address] [place] [address] Dr. bIis Jimenez EGFR-AF CYMRAES >60 Normal >=60 [facility] Comment on above: Performed By: #### C VDTBH #### [facility] [address] [place] [address] Dr. Ibis Jimenez EGFR-NON AF CYMRAES >60 Normal >=60 [facility] Comment on above: Performed By: #### C VDTBH #### [facility] [address] [place] [address] Dr. Ibis Jimenez CBC AUTO DIFFon 10-01-2021 BASO # 0.0 103/ul Normal 0.0-0.1 [facility] Comment on above: Performed By: #### A MM #### [facility] [address] [place] [address] Dr. Ibis Jimenez Basophils/100 WBC (Bld) 0.3 % Normal 0.2-2.0 [facility] Comment on above: Performed By: #### A MM #### [facility] [address] [place] [address] Dr. Ibis Jimenez EO # 0.1 103/ul Normal 0.0-0.7 [facility] Comment on above: Performed By: #### A MM #### [facility] [address] [place] [address] Dr. Ibis Jimenez Eosinophils/100 WBC (Bld) 1.9 % Normal 0.9-7.0 [facility] Comment on above: Performed By: #### A MM #### [facility] [address] [place] [address] Dr. Ibis Jimenez Erythrocyte distribution width (RBC) [Ratio] 12.7 % Normal 11.0-15.0 [facility] Comment on above: Performed By: #### A MM #### [facility] [address] [place] [address] Dr. Ibis Jimenez Hematocrit (Bld) [Volume fraction] 38.1 % Normal 36.0-48.0 [facility] Comment on above: Performed By: #### A MM #### [facility] [address] [place] [address] Dr. Ibis Jimenez Hemoglobin (Bld) [Mass/Vol] 12.7 g/dL Normal 12.0-16.0 [facility] Comment on above: Performed By: #### A MM #### [facility] [address] [place] [address] Dr. Ibis Jimenez IG # 0.02 10e3/ul Normal 0.00-0.03 [facility] Comment on above: Performed By: #### A MM #### [facility] [address] [place] [address] Dr. Ibis Jimenez IG % 0.3 % Normal 0.0-0.5 [facility] Comment on above: Performed By: #### A MM #### [facility] [address] [place] [address] Dr. Ibis Jimenez LYMPH # 1.9 103/ul Normal 1.2-3.8 [facility] Comment on above: Performed By: #### A MM #### [facility] [address] [place] [address] Dr. Ibis Jimenez Lymphocytes/100 WBC (Bld) 30.5 % Normal 20.5-60.0 [facility] Comment on above: Performed By: #### A MM #### [facility] [address] [place] [address] Dr. Ibis Jimenez MANUAL DIFF REQ NO Normal [facility] Comment on above: Performed By: #### A MM #### [facility] [address] [place] [address] Dr. Ibis Jimenez MCH (RBC) [Entitic mass] 28.3 pg Normal 26.7-34.0 [facility] Comment on above: Performed By: #### A MM #### [facility] [address] [address] [address] Ibis Jimenez MCHC (RBC) [Mass/Vol] 33.3 g/dL Normal 29.9-35.2 [facility] Comment on above: Performed By: #### A MM #### [facility] [address] [place] [address] Dr. Ibis Jimenez MCV (RBC) [Entitic vol] 85.0 fL Normal 81.0-99.0 [facility] Comment on above: Performed By: #### A MM #### [facility] [address] [place] [address] Dr. Ibis Jimenez MONO # 0.3 103/ul Normal 0.3-0.8 [facility] Comment on above: Performed By: #### A MM #### [facility] [address] [place] [address] Dr. Ibis Jimenez Monocytes/100 WBC (Bld) 5.2 % Normal 1.7-12.0 [facility] Comment on above: Performed By: #### A MM #### [facility] [address] [place] [address] Dr. Ibis Jimenez NEUT # 3.9 103/ul Normal 1.4-6.5 [facility] Comment on above: Performed By: #### A MM #### [facility] [address] [place] [address] Dr. Ibis Jimenez Neutrophils/100 WBC (Bld) 61.8 % Normal 43.0-75.0 [facility] Comment on above: Performed By: #### A MM #### [facility] [address] [place] [address] Dr. Ibis Jimenez Platelet mean volume (Bld) [Entitic vol] 9.7 fL Normal 9.5-13.5 [facility] Comment on above: Performed By: #### A MM #### [facility] [address] [place] [address] Dr. Ibis Jimenez PLT 255 103/ul Normal 150-450 [facility] Comment on above: Performed By: #### A MM #### [facility] [address] [address] [address] Ibis Jimenez RBC 4.48 106/ul Normal 4.20-5.40 [facility] Comment on above: Performed By: #### A MM #### [facility] [address] [place] [address] Dr. Ibis Jimenez WBC 6.3 103/ul Normal 4.0-11.0 [facility] Comment on above: Performed By: #### A MM #### [facility] [address] [address] [address] Ibis Jimenez PREG HCG QUALon 10-01-2021 , QUAL Negative Normal NEGATIVE [facility] Comment on above: Performed By: #### M DAVID #### [facility] [address] [place] [address] Dr. Ibis Jimenez Covid-19 PCR ([facility]on 09-20 SARS-CoV-2 (COVID-19) RNA SAURABH+probe Ql (Unsp spec) Not detected Normal NOT DETECTED [facility] Comment on above: Result Comment: This test is not yet approved or cleared by the [place] FDA. When there are no FDA-approved or cleared tests available, and other criteria are met, FDA can make tests available under an emergency access mechanism called an Emergency Use Authorization (EUA). The EUA for this test is supported by the [place] of Health and Human Service's (HHS's) declaration [...] SARS-CoV-2. Performed By: #### B MP #### [facility] [address] [place] [address] Dr. Ibis Jimenez TYPE AND SCREENon 09-29-2021 TYPE AND SCREEN Negative Normal [facility] Comment on above: Performed By: #### B MP #### [facility] [address] [place] [address] Dr. Ibis Jimenez Covid-19 PCR (CVDTB)on SARS-CoV-2 (COVID-19) RNA SAURABH+probe Ql (Unsp spec) Not detected Normal NOT DETECTED [facility] Comment on above: Result Comment: This test is not yet approved or cleared by the [place] FDA. When there are no FDA-approved or cleared tests available, and other criteria are met, FDA can make tests available under an emergency access mechanism called an Emergency Use Authorization (EUA). The EUA for this test is supported by the [place] of Health and Human Service's (HHS's) declaration [...] SARS-CoV-2. Performed By: #### C VDTB #### [facility] [address] [place] [address] Dr. Ibis Jimenez TYPE AND SCREENon 09-21-2021 TYPE AND SCREEN Negative Normal [facility] Comment on above: Performed By: #### B MP #### [facility] [address] [place] [address] [address] [address] Ibis Jimenez CHLAMYDIA/GONOCOCCUS SAURABH (SW AB/URINE/PAPon 08-17-2021 Chlamydia trachomatis, SAURABH Negative Normal Negative [facility] Comment on above: Performed By: #### A CET, SALYC #### [facility] [address] [place] [address] [address] [address] Ibis Jimenez Neisseria gonorrhoeae, SAURABH Negative Normal Negative [facility] Comment on above: Performed By: #### A CET, SALYC #### [facility] [address] [place] [address] Dr. Ibis Jimenez CBC AUTO DIFFon 08-14-2021 BASO # 0.0 103/ul Normal 0.0-0.1 [facility] Comment on above: Performed By: #### C VDTBH #### [facility] [address] [place] [address] Dr. Ibis Jimenez Basophils/100 WBC (Bld) 0.3 % Normal 0.2-2.0 [facility] Comment on above: Performed By: #### C VDTBH #### [facility] [address] [place] [address] Dr. Ibis Jimenez EO # 0.2 103/ul Normal 0.0-0.7 [facility] Comment on above: Performed By: #### C VDTBH #### [facility] [address] [place] [address] Dr. Ibis Jimenez Eosinophils/100 WBC (Bld) 2.5 % Normal 0.9-7.0 [facility] Comment on above: Performed By: #### C VDTBH #### [facility] [address] [place] [address] Dr. Ibis Jimenez Erythrocyte distribution width (RBC) [Ratio] 13.0 % Normal 11.0-15.0 [facility] Comment on above: Performed By: #### C VDTBH #### [facility] [address] [place] [address] Dr. Ibis Jimenez Hematocrit (Bld) [Volume fraction] 38.1 % Normal 36.0-48.0 [facility] Comment on above: Performed By: #### C VDTBH #### [facility] [address] [place] [address] Dr. Ibis Jimenez Hemoglobin (Bld) [Mass/Vol] 12.8 g/dL Normal 12.0-16.0 [facility] Comment on above: Performed By: #### C VDTBH #### [facility] [address] [place] [address] Dr. Ibis Jimenez IG # 0.02 10e3/ul Normal 0.00-0.03 [facility] Comment on above: Performed By: #### C VDTBH #### [facility] [address] [place] [address] Dr. Ibis Jimenez IG % 0.3 % Normal 0.0-0.5 [facility] Comment on above: Performed By: #### C VDTBH #### [facility] [address] [place] [address] Dr. Ibis Jimenez LYMPH # 1.5 103/ul Normal 1.2-3.8 [facility] Comment on above: Performed By: #### C VDTBH #### [facility] [address] [place] [address] Dr. Ibis Jimenez Lymphocytes/100 WBC (Bld) 22.5 % Normal 20.5-60.0 [facility] Comment on above: Performed By: #### C VDTBH #### [facility] [address] [place] [address] Dr. Ibis Jimenez MANUAL DIFF REQ NO Normal [facility] Comment on above: Performed By: #### C VDTBH #### [facility] [address] [place] [address] Dr. Ibis Jimenez MCH (RBC) [Entitic mass] 28.6 pg Normal 26.7-34.0 [facility] Comment on above: Performed By: #### C VDTBH #### [facility] [address] [place] [address] Dr. Ibis Jimenez MCHC (RBC) [Mass/Vol] 33.6 g/dL Normal 29.9-35.2 [facility] Comment on above: Performed By: #### C VDTBH #### [facility] [address] [place] [address] Dr. Ibis Jimenez MCV (RBC) [Entitic vol] 85.0 fL Normal 81.0-99.0 [facility] Comment on above: Performed By: #### C VDTBH #### [facility] [address] [place] [address] Dr. Ibis Jimenez MONO # 0.4 103/ul Normal 0.3-0.8 [facility] Comment on above: Performed By: #### C VDTBH #### [facility] [address] [place] [address] Dr. Ibis Jimenez Monocytes/100 WBC (Bld) 6.3 % Normal 1.7-12.0 [facility] Comment on above: Performed By: #### C VDTBH #### [facility] [address] [place] [address] Dr. Ibis Jimenez NEUT # 4.6 103/ul Normal 1.4-6.5 [facility] Comment on above: Performed By: #### C VDTBH #### [facility] [address] [place] [address] Dr. Ibis Jimenez Neutrophils/100 WBC (Bld) 68.1 % Normal 43.0-75.0 [facility] Comment on above: Performed By: #### C VDTBH #### [facility] [address] [place] [address] Dr. Ibis Jimenez Platelet mean volume (Bld) [Entitic vol] 9.8 fL Normal 9.5-13.5 [facility] Comment on above: Performed By: #### C VDTBH #### [facility] [address] [place] [address] Dr. Ibis Jimenez PLT 243 103/ul Normal 150-450 [facility] Comment on above: Performed By: #### C VDTBH #### [facility] [address] [place] [address] Dr. Ibis Jimenez RBC 4.48 106/ul Normal 4.20-5.40 [facility] Comment on above: Performed By: #### C VDTBH #### [facility] [address] [place] [address] Dr. Ibis Jimenez WBC 6.7 103/ul Normal 4.0-11.0 [facility] Comment on above: Performed By: #### C VDTBH #### [facility] [address] [place] [address] ABD/PELVIS WO CONon [...] NELI COTTO Date: 2021-08-14 18:00 Normal [facility] URINE PROFILEon 2 Bilirubin Ql (U) SMALL Abnormal NEGATIVE [facility] Comment on above: Performed By: #### B MP #### [facility] [address] [place] [address] Dr. Ibis Jimenez Clarity (U) CLEAR Normal CLEAR [facility] Comment on above: Performed By: #### B MP #### [facility] [address] [address] [address] Ibis Jimenez Color (U) YELLOW Normal YELLOW [facility] Comment on above: Performed By: #### B MP #### [facility] [address] [address] [address] Ibis Jimenez ERUAHD A micrscopic examination will be performed if indicated. Normal [facility] Comment on above: Performed By: #### B MP #### [facility] [address] [place] [address] Dr. Ibis Jimenez Glucose Ql (U) Negative Normal NEGATIVE [place] Comment on above: Performed By: #### B MP #### [facility] [address] [place] [address] Dr. Ibis Jimenez Hemoglobin Ql (U) SMALL Abnormal NEGATIVE [facility] Comment on above: Performed By: #### B MP #### [facility] [address] [place] [address] Dr. Ibis Jimenez Ketones Ql (U) TRACE Abnormal NEGATIVE [place] Comment on above: Performed By: #### B MP #### [facility] [address] [place] [address] Dr. Ibis Jimenez LEUKOCYTES Negative Normal NEGATIVE [facility] Comment on above: Performed By: #### B MP #### [facility] [address] [place] [address] Dr. Ibis Jimenez Nitrite Ql (U) Negative Normal NEGATIVE [place] Comment on above: Performed By: #### B MP #### [facility] [address] [place] [address] Dr. Ibis Jimenez pH (U) 5.5 [pH] Normal 5-9 [facility] Comment on above: Performed By: #### B MP #### [facility] [address] [place] [address] Dr. Ibis Jimenez SPEC GRAVITY >=1.030 Abnormal 1.005-<=1.[address] [facility] Comment on above: Performed By: #### B MP #### [facility] [address] [place] [address] Dr. Ibis Jimenez UA PROTEIN TRACE Normal NEGATIVE/ TRACE [facility] Comment on above: Performed By: #### B MP #### [facility] [address] [place] [address] Dr. Ibis Jimenez UR MICRO IND INDICATED Normal [facility] Comment on above: Performed By: #### B MP #### [facility] [address] [address] [address] Ibis Jimenez Urobilinogen Qn (U) 1.0 {Dinorah'U}/dL Normal 0.2 - 1. 0 [facility] Comment on above: Performed By: #### B MP #### [facility] [address] [address] [address] Ibis Jimenez URon 08-14-2021 , QUAL Negative Normal NEGATIVE [facility] Comment on above: Performed By: #### B MP #### [facility] [address] [address] [address] Ibis Jimenez PROF CHEM 8 (BAS METB)on Anion gap [Moles/Vol] 15.3 mmol/L Normal [facility] Comment on above: Performed By: #### B MP #### [facility] [address] [address] [address] Ibis Jimenez Calcium [Mass/Vol] 8.4 mg/dL Critically low 8.5-10.1 [facility] Comment on above: Performed By: #### B MP #### [facility] [address] [address] [address] Ibis Jimenez Chloride [Moles/Vol] 106 mmol/L Normal 98-107 [facility] Comment on above: Performed By: #### B MP #### [facility] [address] [address] [address] Ibis Jimenez CO2 [Moles/Vol] 22.3 mmol/L Normal 21.0-32.0 [facility] Comment on above: Performed By: #### B MP #### [facility] [address] [address] [address] Ibis Jimenez Creatinine [Mass/Vol] 0.75 mg/dL Normal 0.55-1.02 [facility] Comment on above: Performed By: #### B MP #### [facility] [address] [place] [address] Dr. Ibis Jimenez EGFR-AF CYMRAES >60 Normal >=60 [facility] Comment on above: Performed By: #### B MP #### [facility] [address] [place] [address] Dr. Ibis Jimenez EGFR-NON AF CYMRAES >60 Normal >=60 [facility] Comment on above: Performed By: #### B MP #### [facility] [address] [address] [address] Ibis Jimenez Glucose [Mass/Vol] 107 mg/dL Critically high 74-106 [facility] Comment on above: Performed By: #### B MP #### [facility] [address] [place] [address] Dr. Ibis Jimenez Potassium [Moles/Vol] 3.6 mmol/L Normal 3.5-5.1 [facility] Comment on above: Performed By: #### B MP #### [facility] [address] [place] [address] Dr. Ibis Jimenez Sodium [Moles/Vol] 140 mmol/L Normal 136-145 [facility] Comment on above: Performed By: #### B MP #### [facility] [address] [place] [address] Dr. Ibis Jimenez Urea nitrogen [Mass/Vol] 13.0 mg/dL Normal 7.0-18.0 [facility] Comment on above: Performed By: #### B MP #### [facility] [address] [place] [address] Dr. Ibis Jimenez Urea nitrogen/Creatinine [Mass ratio] 17.3 mg/mg Normal [facility] Comment on above: Performed By: #### B MP #### [facility] [address] [place] [address] Dr. Ibis Jimenez URINE MICROSCOPIC ONLYon BACTERIA TRACE Abnormal NONE SEEN [facility] Comment on above: Performed By: #### B MP #### [facility] [address] [place] [address] Dr. Ibis Jimenez Bacteria identified Cx Nom (U) NOT INDICATED Normal [facility] Comment on above: Performed By: #### B MP #### [facility] [address] [place] [address] Dr. Ibis Jimenez CAST NONE SEEN Normal NONE SEEN [facility] Comment on above: Performed By: #### B MP #### [facility] [address] [address] [address] Ibis Jimenez Crystals LM Nom (Urine sed) NONE SEEN Normal NONE SEEN [facility] Comment on above: Performed By: #### B MP #### [facility] [address] [address] [address] Ibis Jimenez Epithelial cells LM Ql (Urine sed) MANY Abnormal NONE SEEN /RARE [facility] Comment on above: Performed By: #### B MP #### [facility] [address] [address] [address] Ibis Jimenez MUCOUS SMALL Abnormal NONE SEEN [facility] Comment on above: Performed By: #### B MP #### [facility] [address] [address] [address] Ibis Jimenez RBC 2-5 Abnormal 0-2 [facility] Comment on above: Performed By: #### B MP #### [facility] [address] [address] [address] Ibis Jimenez WBC 2-5 Abnormal NONE SEEN [facility] Comment on above: Performed By: #### B MP #### [facility] [address] [address] [address] Ibis Jimenez CBC Auto DifferentialOrdered By: Vielka Ching on 12-24-2020 [employer] # 0.44 [employer] [facility] Work Phone: Absolute Immature Granulocyte 0.05 [facility] Work Phone: Absolute Lymph # 2.48 [employer] [facility] Work Phone: Absolute Runnels # 0.55 [facility] Work Phone: Basophils (Bld) [#/Vol] 10*3/uL [employer] Work Phone: Basophils/100 WBC (Bld) 0 % 0 - 2 % M [employer] Work Phone: Differential Type NOT REPORTED [employer] Work Phone: Eosinophils/100 WBC (Bld) 5 % High 1 - 4 % [employer] Phone: Hematocrit (Bld) [Volume fraction] 37.4 % 36.3 - 47.1 % [employer] Phone: Hemoglobin.gastrointest inal spec 1 Ql (Stl) 12.3 g/dL 11.9 - 15.1 g/dL [employer] Phone: Immature granulocytes/100 WBC (Bld) 1 % High 0 [employer] Phone: Interpretation and review of laboratory results Abnormal [employer] Phone: Lymphocytes/100 WBC (Bld) 30 % 24 - 43 % [employer] Phone: MCH (RBC) [Entitic mass] 28.5 pg 25.2 - 33.5 pg [employer] Phone: MCHC (RBC) [Mass/Vol] 32.9 g/dL 28.4 - 34.8 g/dL [employer] Phone: MCV (RBC) [Entitic vol] 86.8 fL 82.6 - 102.9 fL [employer] Phone: Monocytes/100 WBC (Bld) 7 % 3 - 12 % [employer] Phone: NRBC Automated 0.0 0.0 per 100 WBC [employer] Phone: Platelet distribution width (Bld) [Ratio] 12.7 % 11.8 - 14.4 % [employer] Phone: Platelet Estimate NOT REPORTED [employer] Phone: Platelet mean volume (Bld) [Entitic vol] 9.4 fL 8.1 - 13.5 fL [employer] Phone: Platelets (Bld) [#/Vol] 252 10*3/uL [employer] Phone: RBC (Bld) [#/Vol] 4.31 10*6/uL 3.95 - 5.1 1 m/uL [facility] [employer] Work Phone: RBC (Bld) [#/Vol] NOT REPORTED [facility] [employer] Work Phone: Segmented neutrophils/100 WBC (Bld) 57 % 36 - 65 % [facility] [employer] Work Phone: Segs Absolute 4.78 [facility] [employer] Work Phone: WBC (Bld) [#/Vol] 8.3 10*3/uL [facility] [employer] Work Phone: WBC (Bld) [#/Vol] NOT REPORTED [facility] [employer] Work Phone: [facility] [employer] Work Phone: CBC with Diffon 12-24-2020 Abs. Basophil <0.03 Normal 0.00-0.20 [facility] Comment on above: Performed By: #### C MPX, CDP #### [address] [place] [address] [employer] Machine Operator: Souleymane Pineda MD Abs.Imm.Granulocyte 0.05 k/uL Normal 0.00-0.30 [facility] Comment on above: Performed By: #### C MPX, CDP #### [address] [place] [address] [employer] Operator: Souleymane Pineda MD Abs.Neutrophil (Seg) 4.78 k/uL Normal 1.50-8.10 [facility] Comment on above: Performed By: #### C MPX, CDP #### [address] [place] [address] [employer] Operator: Souleymane Pineda MD Basophils/100 WBC (Bld) 0 % Normal 0-2 M [facility] Comment on above: Performed By: #### C MPX, CDP #### [facility] [address] [place] [address] Dr[place], [place] [id number] [employer] Operator: Souleymane Pineda MD Eosinophils (Bld) [#/Vol] 0.44 10*3/uL Normal 0.00-0.44 [facility] Comment on above: Performed By: #### C MPX, CDP #### [address] [place], [place] [id number] [employer] Operator: Souleymane Pineda MD Eosinophils/100 WBC (Bld) 5 % High 1-4 [facility] Comment on above: Performed By: #### C MPX, CDP #### [address] [place], [facility] [employer] Operator: Souleymane Pineda MD Erythrocyte distribution width (RBC) [Ratio] 12.7 % Normal 11.8-14.4 [facility] Comment on above: Performed By: #### C MPX, CDP #### [address] [place], [place] [id number] [employer] Operator: Souleymane Pineda MD Hematocrit (Bld) [Volume fraction] 37.4 % Normal 36.3-47.1 [facility] Comment on above: Performed By: #### C MPX, CDP #### [address] [place], [place] [id number] [employer] Operator: Souleymane Pineda MD Hemoglobin (Bld) [Mass/Vol] 12.3 g/dL Normal 11.9-15.1 [facility] Comment on above: Performed By: #### C MPX, CDP #### [address] [place] [address] [employer] Operator: Souleymane Pineda MD Immature granulocytes/100 WBC (Bld) 1 % High 0 [facility] Comment on above: Performed By: #### C MPX, CDP #### [address] [place], [place] [id number] [employer] Operator: Souleymane Pineda MD Lymphocytes (Bld) [#/Vol] 2.48 10*3/uL Normal 1.10-3.70 [facility] Comment on above: Performed By: #### C MPX, CDP #### [facility] [address] [place] [address] [employer] Operator: Souleymane Pineda MD Lymphocytes/100 WBC (Bld) 30 % Normal 24-43 [facility] Comment on above: Performed By: #### C MPX, CDP #### [facility] [address] [place] [address] [employer] Operator: Souleymane Pineda MD MCH (RBC) [Entitic mass] 28.5 pg Normal 25.2-33.5 [facility] Comment on above: Performed By: #### C MPX, CDP #### [address] [place], [place] [address]83 [employer] Operator: Souleymane Pineda MD MCHC (RBC) [Mass/Vol] 32.9 g/dL Normal 28.4-34.8 [facility] Comment on above: Performed By: #### C MPX, CDP #### [address] [place], [place] [id number] [employer] Operator: Souleymane Pineda MD MCV (RBC) [Entitic vol] 86.8 fL Normal 82.6-102.9 M [facility] Comment on above: Performed By: #### C MPX, CDP #### [address] [place], [place] [id number] [employer] Operator: Souleymane Pineda MD Monocytes (Bld) [#/Vol] 0.55 10*3/uL Normal 0.10-1.20 [facility] Comment on above: Performed By: #### C MPX, CDP #### [facility] [address] [place] [address] [employer] Machine Operator: Souleymane Pineda MD Monocytes/100 WBC (Bld) 7 % Normal 3-12 M [facility] Comment on above: Performed By: #### C MPX, CDP #### [facility] [address] [place], [place] [address]83 [employer] Operator: Souleymane Pineda MD Neutrophil (Seg) 57 % Normal 36-65 [facility] Comment on above: Performed By: #### C MPX, CDP #### [facility] [address] [place], [place] [id number] [employer] Operator: Souleymane Pineda MD NRBC Automated 0.0 per 100 WBC Normal 0.0 [facility] Comment on above: Performed By: #### C MPX, CDP #### [facility] [address] [place], [place] [id number] [employer] Operator: Souleymane Pineda MD Platelet mean volume (Bld) [Entitic vol] 9.4 fL Normal 8.1-13.5 [facility] Comment on above: Performed By: #### C MPX, CDP #### [address] [place], [place] [id number] [employer] Operator: Souleymane Pineda MD Platelets (Bld) [#/Vol] 252 10*3/uL Normal 138-453 [facility] [place] Comment on above: Performed By: #### C MPX, CDP #### [facility] [address] [place], [place] [id number] [employer] Operator: Souleymane Pineda MD RBC (Bld) [#/Vol] 4.31 10*6/uL Normal 3.95-5.11 [facility] Comment on above: Performed By: #### C MPX, CDP #### [facility] [address] [place] [address] [employer]fer Machine Operator: Souleymane Pineda MD WBC (Bld) [#/Vol] 8.3 10*3/uL Normal 3.5-11.3 [facility] Comment on above: Performed By: #### C MPX, CDP #### [facility] [address] [place] [address] [employer] Machine Operator: Souleymane Pineda MD Auto Diff Performed NOT REPORTED Normal [facility] Comment on above: Performed By: #### C MPX, CDP #### [facility] [address] [place], [facility] [employer] Operator: Souleymane Pineda MD Platelet Comment NOT REPORTED Normal [facility] Comment on above: Performed By: #### C MPX, CDP #### [facility] [address] [place], [place] [address] Wa[employer] Operator: Souleymane Pineda MD RBC morphology finding Nom (Bld) NOT REPORTED Normal [facility] Comment on above: Performed By: #### C MPX, CDP #### [facility] [address] [place], [facility] [employer] Operator: Souleymane Pineda MD WBC Morphology NOT REPORTED Normal [facility] Comment on above: Performed By: #### C MPX, CDP #### [facility] [address] [place] [address] [address] [place] [id number] Wafer Machine Operator: Souleymane Pineda MD CT HEAD WO CONTRASTon [...] the orbits demonstrate no acute abnormality. SINUSES: [id number] paranasal sinus mucosal thickening. SOFT TISSUES/SKULL: No acute abnormality of the visualized skull or soft tissues. IMPRESSION: No acute intracranial abnormality. Interpreted by: Edwin Bentley MD Signed by: Edwin Bentley MD 12/24/20 Final result Normal [facility] CT Head WO ContrastOrdered B y: Vielka Ching on 12-24-2020 No acute intracranial abnormality. [facility] Phone: EXAMINATION: CT OF THE HEAD WITHOUT [...] the orbits demonstrate no acute abnormality. SINUSES: Qqjk-qc-xrdalyfv paranasal sinus mucosal thickening. SOFT TISSUES/SKULL: No acute abnormality of the visualized skull or soft tissues. [facility] Phone: Dimitri, [facility] Incoming Radiant Results From [employer]Jag[employer] - 12/24/2020 8:49 PM EDT EXAMINATION: CT [...] the orbits demonstrate no acute abnormality. SINUSES: Gbfz-nu-axxobzma paranasal sinus mucosal thickening. SOFT TISSUES/SKULL: No acute abnormality of the visualized skull or soft tissues. IMPRESSION: No acute intracranial abnormality. [facility] Work Phone: [facility] Work Phone: Comp Metabolic Pr/rfx MGon 1 02-24-2020 Bilirubin [Mass/Vol] mg/dL Low 0.3-1.2 [facility] Comment on above: Performed By: #### C MPX, CDP #### [facility] [address] [place] [address] [place] [address] Wafer Machine Operator: Souleymane Pineda MD (cont.) Normal [facility] Comment on above: Result Comment: Aver age GFR for 20-29 years old: 116 mL/min/1.73sq m Chronic Kidney Disease: <60 mL/min/1.73sq m Kidney failure: <15 mL/min/1.73sq m eGFR calculated using average adult body mass. Additional eGFR calculator available at: http://www.Mambu.[employer]B-Media/multiple_crcl_2012.htm Performed By: #### C JULIA, CDP #### [facility] [address] [place] [address] [place] [address] Wafer Machine Operator: Souleymane Pineda MD Albumin [Mass/Vol] 4.0 g/dL Normal 3.5-5.2 [facility] Comment on above: Performed By: #### C MPX, CDP #### [address] [place] [address] Wafer Machine Operator: Souleymane Pineda MD Albumin/Glob Ratio 1.5 Normal 1.0-2.5 [facility] Comment on above: Performed By: #### C MPX, CDP #### [facility] [address] [place], [place] [id number] Wafer Machine Operator: Souleymane Pineda MD Alkaline Phos 90 U/L Normal 35-104 [facility] Comment on above: Performed By: #### C MPX, CDP #### [facility] [address] [place], [place] [id number] Wafer Machine Operator: Souleymane Pineda MD ALT [Catalytic activity/Vol] 40 U/L High 5-33 [facility] Comment on above: Performed By: #### C MPX, CDP #### [facility] [address] [place], [place] [id number] Wafer Machine Operator: Souleymane Pineda MD Anion gap [Moles/Vol] 11 mmol/L Normal 9-17 [facility] Comment on above: Performed By: #### C MPX, CDP #### [facility] [address] [place], [place] [id number] Wafer Machine Operator: Souleymane Pineda MD AST [Catalytic activity/Vol] 19 U/L Normal <32 [facility] Comment on above: Performed By: #### C MPX, CDP #### [facility] [address] [place], [place] [id number] Wafer Machine Operator: Souleymane Pineda MD BUN/CRE Ratio 15 Normal 9-20 [facility] Comment on above: Performed By: #### C MPX, CDP #### [facility] [address] [place], [place] [id number] Wafer Machine Operator: Souleymane Pineda MD Calcium [Mass/Vol] 8.9 mg/dL Normal 8.6-10.4 [facility] Comment on above: Performed By: #### C MPX, CDP #### [facility] [address] [place], [place] [id number] Wafer Machine Operator: Souleymane Pineda MD Chloride [Moles/Vol] 104 mmol/L Normal 98-107 [facility] Comment on above: Performed By: #### C MPX, CDP #### [facility] [address] [place], [place] [id number] Wafer Machine Operator: Souleymane Pineda MD CO2 [Moles/Vol] 24 mmol/L Normal 20-31 [facility] Comment on above: Performed By: #### C MPX, CDP #### [facility] [address] [place], [place] [id number] Wafer Machine Operator: Souleymane Pineda MD Creatinine [Mass/Vol] 0.60 mg/dL Normal 0.50-0.90 [facility] Comment on above: Performed By: #### C MPX, CDP #### [facility] [address] [place], [place] [id number] Wafer Machine Operator: Souleymane Pineda MD GFR, Amer >60 Normal >60 [facility] Comment on above: Performed By: #### C MPX, CDP #### [facility] [address] [place], [place] [id number] Wafer Machine Operator: Souleymane Pineda MD GFR,non Amer >60 Normal >60 [facility] Comment on above: Performed By: #### C MPX, CDP #### [facility] [address] [place], [place] [id number] Wafer Machine Operator: Souleymane Pineda MD Glucose [Mass/Vol] 91 mg/dL Normal 70-99 [facility] Comment on above: Performed By: #### C MPX, CDP #### [facility] [address] [place], [place] [id number] Wafer Machine Operator: Souleymane Pineda MD Potassium [Moles/Vol] 4.0 mmol/L Normal 3.7-5.3 [facility] Comment on above: Performed By: #### C MPX, CDP #### [facility] [address] [place] [address] Wafer Machine Operator: Souleymane Pineda MD Protein [Mass/Vol] 6.7 g/dL Normal 6.4-8.3 [facility] Comment on above: Performed By: #### C MPX, CDP #### [facility] [address] [place] [address] Wafer Machine Operator: Souleymane Pineda MD Sodium [Moles/Vol] 139 mmol/L Normal 135-144 [facility] Comment on above: Performed By: #### C MPX, CDP #### [facility] [address] [place] [address] Wafer Machine Operator: Souleymane Pineda MD Staging: Normal [facility] Comment on above: Result Comment: Stag e 1: Some kidney damage normal GFR Stage 2: Mild kidney damage GFR 60-89 Stage 3: Moderate kidney damage GFR 30-59 Stage 4: Severe kidney damage GFR 15-29 Stage 5: Severe kidney damage GFR <15 ESRD - chronic treatment by dialysis or transplant Performed By: #### C MPX, CDP #### [facility] [address] [place] [address] Wafer Machine Operator: Souleymane Pineda MD Urea nitrogen [Mass/Vol] 9 mg/dL Normal 6-20 [facility] Comment on above: Performed By: #### C MPX, CDP #### [facility] [address] [place] [address] Wafer Machine Operator: Souleymane Pineda MD Comprehensive Metabolic Pane l w/ Reflex to MGOrdered By: Vielka Ching on 12-24-2020 Albumin [Mass/Vol] 4 g/dL 3.5 - 5.2 g/dL [facility] Work Phone: Albumin/Globulin [Mass ratio] 1.5 {ratio} [facility] [employer] Phone: ALP (Bld) [Catalytic activity/Vol] 90 U/L 35 - 104 U/L [facility] Work Phone: ALT [Catalytic activity/Vol] 40 U/L High 5 - 33 U/L [facility] Phone: Anion gap [Moles/Vol] 11 mmol/L 9 - 17 mmol/L [employer] Phone: AST [Catalytic activity/Vol] 19 U/L <32 [employer] Phone: Bilirubin [Mass/Vol] mg/dL Low 0.3 - 1 .2 mg/dL [employer] Phone: Calcium [Mass/Vol] 8.9 mg/dL 8.6 - 10. 4 mg/dL [employer] Phone: Chloride [Moles/Vol] 104 mmol/L 98 - 10 7 mmol/L [employer] Phone: CO2 [Moles/Vol] 24 mmol/L 20 - 31 mmol/L [employer] Phone: Creatinine [Mass/Vol] 0.6 mg/dL 0.50 - 0.90 mg/dL [employer] Phone: Free PSA/Total PSA [Mass fraction] 6.7 g/dL 6.4 - 8.3 g/dL [employer] Phone: GFR >60 >60 mL/min [facility] Phone: GFR Non- >60 >60 mL/min [employer] Phone: Glucose [Mass/Vol] 91 mg/dL 70 - 99 mg/dL [employer] Phone: Interpretation and review of laboratory results Abnormal [employer] Phone: Potassium [Moles/Vol] 4.0 mmol/L 3.7 - 5.3 mmol/L [employer] Phone: Sodium [Moles/Vol] 139 mmol/L 135 - 144 mmol/L [employer] Phone: Urea nitrogen (BldV) [Mass/Vol] 9 mg/dL 6 - 20 mg/dL [employer] Work Phone: Urea nitrogen/Creatinine (Bld) [Mass ratio] 15 [employer] Work Phone: [employer] Work Phone: Laboratory - Chemistry and C hemistry - challengeOrdered By: Vielka Ching on 12-24-2020 GFR/1.73 sq M.predicted MDRD (S/P/Bld) [Vol rate/Area] [facility] Phone: Comment on above: Average GFR for 20-2 9 years old: 116 mL/min/1.73sq m Chronic Kidney Disease: <60 mL/min/1.73sq m Kidney failure: <15 mL/min/1.73sq m eGFR calculated using average adult body mass. Additional eGFR calculator available at: http://www.[employer]/multiple_crcl_2011.htm Stage 1: Some kidney damage normal GFR [...] pressure 63 mm[Hg] Infusion 8 Work Phone: [facility] 11-11-2022 10:55-0400 Heart rate 83 /min Infusion 8 Work Phone: [facility] 11-11-2022 10:55-0400 Systolic blood pressure 110 mm[Hg] Infusion 8 Work Phone: [facility] 07-28-2022 10:15-0400 Diastolic blood pressure 50 mm[Hg] Infusion 8 Work Phone: [facility] 07-28-2022 10:15-0400 Heart rate 80 /min Infusion 8 Work Phone: [facility] 07-28-2022 10:15-0400 Systolic blood pressure 105 mm[Hg] Infusion 8 Work Phone: [facility] 12-03-2021 09:47-0400 Diastolic blood pressure 81 mm[Hg] Jesse Wharton MD Work Phone: [facility] 12-03-2021 09:47-0400 Heart rate 66 /min Jesse Samples Work Phone: [facility] 12-03-2021 09:47-0400 SaO2% (BldA) [Mass fraction] 100 % Jesse Samples Work Phone: [facility] 12-03-2021 09:47-0400 Systolic blood pressure 131 mm[Hg] Jesse Wharton Work Phone: [facility] 10-20-2021 12:00-0400 Diastolic blood pressure 101 mm[Hg] Lucila Mota MD Work Phone: [facility] [employer] 10-20-2021 12:00-0400 Heart rate 85 /min Lucila Mota MD Work Phone: [employer] 10-20-2021 12:00-0400 Respiratory rate 12 /min Lucila Mota MD Work Phone: [employer] 10-20-2021 12:00-0400 SaO2% (BldA) [Mass fraction] 98 % Lucila Mota MD Work Phone: [employer] 10-20-2021 12:00-0400 Systolic blood pressure 136 mm[Hg] Lucila Mota MD Work Phone: [employer] 10-20-2021 08:00-0400 Body temperature 98.2 [degF] Lucila Mota MD Work Phone: [employer] 12-24-2020 19:36-0400 Body temperature 99 [degF] Vielka Ching DO Work Phone: [employer] Work Phone: 12-24-2020 19:36-0400 Diastolic blood pressure 80 mm[Hg] Vielka Ching DO Work Phone: [employer] Work Phone: 12-24-2020 19:36-0400 Heart rate 108 /min Vielka Ching DO Work Phone: [employer] Work Phone: 12-24-2020 19:36-0400 Respiratory rate 20 /min Vielka Ching DO Work Phone: [employer] Work Phone: 12-24-2020 19:36-0400 SaO2% (BldA) [Mass fraction] 96 % Vielka Ching DO Work Phone: [employer] Work Phone: 12-24-2020 19:36-0400 Systolic blood pressure 136 mm[Hg] Vielka Ching DO Work Phone: [employer] Work Phone: Encounters Encounter Date Encounter Type Care Provider Facility Start: 03-23-2023 End: 03-23-2023 ambulatory LOGAN BARTH Facility:[facility] Start: 03-22-2023 End: 03-22-2023 ambulatory SUZAN DRIVER Facility:[facility] Start: 03-21-2023 End: 03-21-2023 ambulatory SPENSER RAMSEYNABEELPamela Not Available Start: 03-20-2023 End: 03-20-2023 ambulatory ZAY LEONARDO Not Available Start: 03-07-2023 End: 03-07-2023 ambulatory ZAY LEONARDO Not Available Start: 02-07-2023 End: 02-07-2023 ambulatory ZAY LEONARDO Not Available Start: 01-26-2023 End: 01-26-2023 ambulatory ZAY LEONARDO Not Available Start: 01-18-2023 ambulatory Ramsey Nunn acility:[facility] Start: 12-13-2022 Refill Logan PhamADMITTING COUNSELOR Work Phone: Neurology Headache [facility] Comment on above: Refill Request Infusion (HEADACHE I NFUSIONS) Start: 12-12-2022 End: 12-12-2022 ambulatory LOGAN BARTH Facility:[facility] Start: 12-09-2022 Refill Ольга Cardona er FISH FARM LABORER.ADMITTING COUNSELOR Work Phone: Neurology Comment on above: Refill Request Start: 11-11-2022 End: 11-11-2022 ambulatory Infusion Main Chair 8 Work Phone: Neurology Comment on above: 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 with status migrainosus (Primary Dx) Start: 11-10-2022 End: 11-10-2022 ambulatory ОЛЬГА AGUILAR Facility:[facility] Start: 11-10-2022 End: 11-10-2022 ambulatory Ольга Aguilar FISH FARM LABORER.ADMITTING COUNSELOR Work Phone: Neurology Comment on above: 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 with status migrainosus (Primary Dx) Nerve block Start: 11-10-2022 Telephone encounter Suzan dinero APRN.CNP Work Phone: Neurology Comment on above: Infusion Start: 11-10-2022 End: 11-10-2022 Telemedicine consultation with patient Ольга Aguilar FISH FARM LABORER.ADMITTING COUNSELOR Work Phone: [facility] Start: 10-12-2022 End: 10-12-2022 ambulatory Suzan Driver APRN.CNP Work Phone: Neurology Comment on above: Botox Start: 10-12-2022 E-mail encounter alexus m caregiver Suzan Driver APRN.CNP Work Phone: [facility] Start: 09-29-2022 Telephone encounter Angely rousseau RN Work Phone: [facility] Home Delivery Comment on above: Insurance Authorizat ion (Zomig 5MG nasal spray/) Start: 09-27-2022 ambulatory Logan Barth APR N.FADY Work Phone: NEUR HEADACHE [facility] Comment on above: My apt Monday Start: 09-16-2022 ambulatory Logan Barth APR N.ADMITTING COUNSELOR Work Phone: [facility] Start: 09-16-2022 Patient encounter procedure Logan Barth APRN.ADMITTING COUNSELOR Work Phone: NEUR HEADACHE [facility] Comment on above: Appointment Start: 09-12-2022 End: 09-12-2022 ambulatory LOGAN BARTH Facility:[facility] Start: 08-31-2022 End: 08-31-2022 ambulatory LOGAN BARTH Facility:[facility] Start: 08-31-2022 End: 08-31-2022 ambulatory Logan Barth FISH FARM LABORER.ADMITTING COUNSELOR Work Phone: Neurology Comment on above: Chronic migraine w/o aura, not intractable, w/o stat migr (Primary Dx) Start: 08-31-2022 End: 08-31-2022 Telemedicine consultation with patient Logan Barth FISH FARM LABORER.ADMITTING COUNSELOR Work Phone: [facility] Start: 08-09-2022 ambulatory Logan Barth APR N.ADMITTING COUNSELOR Work Phone: NEUR HEADACHE [facility] Comment on above: Pain Start: 08-08-2022 End: 08-08-2022 ambulatory Jesse Wharton MD Work Phone: Neurology Comment on above: 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 with status migrainosus (Primary Dx) Start: 08-08-2022 End: 08-08-2022 Telemedicine consultation with patient Jesse Wharton MD Work Phone: [facility] Start: 08-07-2022 ambulatory Jesse rick MD Work Phone: Neurology Comment on above: Name of medication Start: 07-29-2022 End: 07-29-2022 ambulatory MARIA DEL ROSARIO HAHN Facility:[facility] Start: 07-28-2022 End: 07-28-2022 ambulatory MARIA DEL ROSARIO M SELMA Facility:[facility] Start: 07-28-2022 End: 07-28-2022 ambulatory Infusion Main Chair 8 Work Phone: Neurology Comment on above: 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 with status migrainosus (Primary Dx) Start: 07-27-2022 End: 07-27-2022 ambulatory MARIA DEL ROSARIO HAHN Facility:[facility] Start: 07-21-[address] ZAY BLAS . Facili ty:[facility] Start: 07-14-2022 Encounter for other preprocedural examination DR ZAY BLAS . [facility] Start: 07-12-2022 End: 07-13-[address] ZAY BLAS . Facility:[facility] Start: 07-12-2022 End: 07-13-2022 Encounter for other preprocedural examination DR ZAY BLAS . Facility:[facility] Start: 07-05-2022 ambulatory KRISTOFER Nunn acility:[facility] Start: 06-27-2022 Telephone encounter Logan Barth FISH FARM LABORER.ADMITTING COUNSELOR Work Phone: Neurology Comment on above: Appointment (infusio n) Start: 06-24-2022 End: 06-24-2022 ambulatory LOGAN BARTH Facility:[facility] Start: 06-20-2022 End: 06-20-2022 ambulatory MANJINDER DEAL [...] Evaluation and management of inpatient DINORAH IVY Facility:[facility] Start: 03-31-2022 End: 04-01-[address] ANGÉLICA [...] End: 11-10-2021 Telemedicine consultation with patient Nelly Piotr MINER Work Phone: [facility] Start: 11-09-2021 ambulatory Tyrone Dolan MD, PhD Work Phone: [facility] Start: 11-09-2021 Patient encounter procedure Tyrone Dolan MD, PhD Work Phone: Neurology Comment on above: Request Veido appoin tment Start: 11-08-2021 ambulatory Tyrone Dolan MD, PhD Work Phone: [facility] Start: 11-08-2021 Patient encounter procedure [...] patient Tyrone Dolan MD, PhD Work Phone: [facility] Start: 10-26-2021 Patient encounter procedure Román Storey MD Work Phone: Neurology Comment on above: Seizure-like activit y (HCC) (Primary Dx) Start: 10-19-2021 End: 10-20-2021 Evaluation and management of inpatient LUCILA MOTA [facility] Start: 10-19-2021 End: 10-20-2021 Evaluation and management [...] laboratory examination DR ZAY BLAS . [facility] Start: 09-29-2021 End: 09-30-[address] [...] 12-24-2020 Emergency department patient visit ANGÉLICA ARTHUR [facility] Start: 12-24-2020 End: 12-24-2020 Emergency department patient visit Vielka Ching DO Work Phone: [facility] ED Comment on above: Migraine without sta [...] Start: 10-20-2021 EEG VIDEO MONITORING Marcy Perez FISH FARM LABORER - ADMITTING COUNSELOR Work Phone: Start: 10-20-2021 BASIC METABOLIC PANE L W/ REFLEX TO MG FOR LOW K Puri Rikki Mota MD Work Phone: Start: 10-20-2021 Blood count complete auto&auto difrntl wbc Lo Perez FISH FARM LABORER - ADMITTING COUNSELOR Work Phone: Start: 10-20-2021 IMMATURE PLATELET FRACTION Lo Perez FISH FARM LABORER - ADMITTING COUNSELOR Work Phone: Start: 10-19-2021 Assay of lactate Uday Perez FISH FARM LABORER - ADMITTING COUNSELOR Work Phone: Start: 10-19-2021 Ecg routine ecg w/le ast 12 lds w/i&r Lo Perez FISH FARM LABORER - ADMITTING COUNSELOR Work Phone: Start: 10-19-2021 Mri brain brain stem w/o w/contrast material Lo Perez FISH FARM LABORER - ADMITTING COUNSELOR Work Phone: Start: 10-19-2021 RESPIRATORY CARE EVALUATION ONLY Lo Perez FISH FARM LABORER - ADMITTING COUNSELOR Work Phone: Start: 10-01-2021 Resection of Bilater [...] DTaP/Tdap/Td vaccine (7 - Td or Tdap) [facility] Start: 09-20-2025 Urine microalbumin profile DTaP,Tdap,Td Vaccine (7 - Td or Tdap) [facility] Start: 10-29-2022 Adult depression screening assessment DEPRESSION SCREENING [facility] Start: 10-21-2022 Influenza vaccination C [facility] Start: 02-20-2022 DEPRESSION ASSESSMENT DEPRESSION ASS [facility] Start: 10-26-2021 End: 10-26-2022 SARS-CoV-2 (COVID-19) RNA [Presence] in Respiratory specimen by SAURABH with probe detection PRE-PROCEDURE & PRE-OPERATIVE COVID Microbiology Routine Seizure-like activity (HCC) Expected: 10/26/2021, Expires: 10/26/2022 [facility] Work Phone: Comment on above: Expected: 10/26/2021 , Expires: 10/26/2022 Start: 10-21-2021 Influenza vaccination B ON [facility] Start: 02-20-2021 DEPRESSION ASSESSMENT DEPRESSION ASS [facility] Start: 10-21-2020 Influenza vaccination Flu vaccine (# 1) [facility] Work Phone: Start: 11-13-2016 PAP TESTING PAP TESTING [facility] Start: 11-13-2016 Screening for malign ant neoplasm of cervix Pap smear [facility] Start: 11-13-2014 Urine microalbumin profile [facility] Start: 11-13-2013 Hepatitis C screening Hepatitis C sc reen [facility] Start: 11-13-2013 HEPATITIS C SCREENING HEPATITIS C SC [facility] Start: 11-13-2013 HIV SCREENING HIV SCREENING [facility] Start: 2011 Screening for Chlamy rose trachomatis Chlamydia screen [facility] Start: 11-13-2010 HIV screening HIV screen [facility] Start: 11-13-2009 PEDS TO ADULT TRANSITION ANNUAL ASSESSMENT PEDS TO ADULT TRANSITION ANNUAL ASSESSMENT [facility] Start: 2007 Adult depression screening assessment DEPRESSION SCREENING [facility] Start: 2007 COVID-19 Vaccine (1) COVID-19 Vaccin e (1) [facility] Phone: Start: 2007 Depression Screen Depression Screen [employer] Start: 2007 PEDS TO ADULT TRANSITION INITIAL DISCUSSION PEDS TO ADULT TRANSITION INITIAL DISCUSSION [facility] Start: 11-13-2006 HPV VACCINE (1 - 2-d ose series) HPV VACCINE (1 - 2-dose series) [facility] Start: 11-13-2004 HPV VACCINE (1 - 2-d ose series) HPV VACCINE (1 - 2-dose series) [facility] Start: 05-13-1996 COVID-19 Vaccine (#1) COVID-19 Vacci ne (#1) [facility] Start: 1995 HEPATITIS B (1 of 3 - 3-dose series) HEPATITIS B (1 of 3 - 3-dose series) [facility] Start: 1995 Hepatitis B Vaccine (1 of 3 - 3-dose series) Hepatitis B Vaccine (1 of 3 - 3-dose series) [facility] Start: 1995 Hepatitis C screening Hepatitis C sc radha [employer] Phone: End: 10-26-2021 Basic Metabolic Panel w/ Reflex to MG Basic Metabolic Panel w/ Reflex to MG Lab Routine Daily for 7 Days starting 10/20/2021 until 10/26/2021 [facility] Phone: Comment on above: Daily for 7 Days sta rting 10/20/2021 until 10/26/2021 End: 10-26-2021 CBC W Auto Differential panel - Blood CBC with Auto Differential Lab Routine Daily for 7 Days starting 10/20/2021 until 10/26/2021, 1 completed [facility] Phone: Comment on above: Daily for 7 Days sta rting 10/20/2021 until 10/26/2021, 1 completed EKG 12 Lead EKG 12 Lead ECG Routine 10/19/2021 5:55 PM EDT [facility] Phone: End: 10-29-2022 EPIL AMBULATORY EEG EPIL AMBULATORY EEG NEUROLOGY Routine Psychogenic nonepileptic seizure Spells of trembling 1 Occurrences starting 10/29/2021 until 10/29/2022 [facility] Work Phone: Comment on above: 1 Occurrences starti ng 10/29/2021 until 10/29/2022 End: 10-26-2022 EPIL EEG LEAD PLACEMENT EPIL EEG LEAD PLACEMENT NEUROLOGY Routine Seizure-like activity (HCC) 1 Occurrences starting 10/26/2021 until 10/26/2022 [facility] Work Phone: Comment on above: 1 Occurrences starti ng 10/26/2021 until 10/26/2022 End: 11-08-2022 EPIL EEG ROUTINE EPIL EEG ROUTINE NEUROLOGY Routine Seizure-like activity (HCC) 1 Occurrences starting 11/08/2021 until 11/08/2022 [facility] Work Phone: Comment on above: 1 Occurrences starti ng 11/08/2021 until 11/08/2022 EPIL VEEG ADMIT TO EMU/PMU EPIL VEEG ADMIT TO EMU/PMU NEUROLOGY Routine Seizure-like activity (HCC) Ordered: 10/26/2021 [facility] Work Phone: Comment on above: Ordered: 10/26/2021 Oxygen therapy [[facility] Data Set] Initiate Oxygen Therapy Protocol Respiratory Care Routine As Needed until discontinued starting 10/19/2021 [facility] Work Phone: Comment on above: As Needed until disc ontinued starting 10/19/2021 [facility] Immunizations Immunization Date Immunization Notes Care Provider Fa wayne 12-08-2017 influenza virus vacc ine, unspecified formulation Suzan Driver APRN.FADY Work Phone: [facility] Payers Date Payer Category Payer Self-pay 2017 Medicaid [place] [id number] 2017-Present Medicaid [id number] 2013 Medicaid [id number] [id number] 2011 Unknown 1995 Unknown [id number] 2.16.840.1.830231.3.579.2.173 1995 Unknown [id number] 2.16.840.1.187847.3.579.2.175 1995 Unknown [id number] 2.16.840.1.492048.3.579.2.727 1995 Unknown [id number] 2.16.840.1.173322.3.579.2.593 1995 Unknown [id number] 2.16.840.1.988847.3.579.2.593 1995 Unknown [id number] 2.16.840.1.059117.3.579.2.593 1995 Unknown [id number] 2.16.840.1.999846.3.579.2.593 1995 Unknown [id number] 2.16.840.1.226177.3.579.2.593 1995 Unknown [id number] 2.16.840.1.387473.3.579.2.593 1995 Unknown [id number] 2.16.840.1.308470.3.579.2.593 1995 Unknown [id number] 2.16.840.1.424013.3.579.2.593 1995 Unknown [id number] 2.16.840.1.252336.3.579.2.593 1995 Unknown [id number] 2.16.840.1.558265.3.579.2.593 1995 Unknown [id number] 2.16.840.1.028285.3.579.2.593 1995 Unknown [id number] 2.16.840.1.564201.3.579.2.593 1995 Unknown [id number] 2.16.840.1.974947.3.579.2.593 1995 Unknown [id number] 2.16.840.1.993808.3.579.2.593 1995 Unknown [id number] 2.16.840.1.568683.3.579.2.593 1995 Unknown [id number] 2.16.840.1.977672.3.579.2.593 1995 Unknown [id number] 2.16.840.1.759846.3.579.2.593 1995 Unknown [id number] 2.16.840.1.739630.3.579.2.593 1995 Unknown [id number] 2.16.840.1.230929.3.579.2.593 1995 Unknown [id number] 2.16.840.1.972931.3.579.2.593 1995 Unknown [id number] 2.16.840.1.274393.3.579.2.593 1995 Unknown [id number] 2.16.840.1.096493.3.579.2.593 1995 Unknown [id number] 2.16.840.1.730303.3.579.2.1259 1995 Unknown [id number] 2.16.840.1.051754.3.579.2.1259 1995 Unknown [id number] 2.16.840.1.795659.3.579.2.1259 1995 Unknown [id number] 2.16.840.1.174654.3.579.2.1259 1995 Unknown [id number] 2.16.840.1.488324.3.579.2.1259 1959 Unknown [id number] 1.2.840.449211.1.13.239.2.7.3.6 [id number] Social History Date Type Detail Facility Tobacco smoking stat [facility] Unknown if ever smoked [facility] Start: 1995 Sex Assigned At Not on file [facility] Start: 12-24-2020 End: 10-12-2022 Tobacco smoking status NHIS Never smoker [employer] Phone: Start: 12-24-2020 End: 10-12-2022 Tobacco use and exposure Never used [employer] Start: 12-24-2020 Alcohol intake Ex-drinker (finding) [employer] Phone: Start: 10-16-2021 End: 07-28-2022 Exposure to SARS-CoV-2 (event) Not sure [employer] Tobacco smoking stat [facility] Tobacco smoking consumption unknown [place] [employer] Phone: Start: 06-23-2022 End: 08-08-2022 History of Social function [facility] Start: 06-23-2022 End: 08-08-2022 Patient Health Questionnaire 2 item (PHQ-2) [Reported] [facility] Adult Depression Screening Assessment 2 [facility] Clinical Notes 12-24-2020 to 03-23-2023 Telephone Encounter - Mendoza Dooley - 12/13/2022 2:24 PM EDTTelephone Encounter - Jannette Mcleod RN - 12/13/2022 10:36 AM EDTTelephone Encounter - Wellington Reilly - 12/09/2022 10:15 AM EDT Note Date & Type Note Facility 03-23-2023 Note HNO ID: [id number] Author: LOGAN BARTH APRN.ADMITTING COUNSELOR Service: ? Author Type: Nurse Practitioner Type: Progress Notes Filed: 03/23/2023 17:05 Note Text: Headache Center - Follow up [...] visit. Either the patient or their legal retail service representative has been informed of the risks and benefits of -- and alternatives to -- treatment through a remote evaluation and consents to proceed with the evaluation remotely. Accompanied by: Self Primary Problem List: ACTIVE PROBLEM LIST Seizure-Like Activity (Hcc) Psychogenic Nonepileptic Seizure Intractable Chronic Migraine Without Aura and With Status Migrainosus Chronic Migraine Without Aura, With Intractable Migraine, So Stated, With Status Migrainosus Chief Complaint: migraines Impression and Plan from last visit yesterday 03/22/2023, [place]: IMPRESSION: 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 with status migrainosus (primary encounter diagnosis) Coni Nicholson is a 27 year old year old female, with a history of asthma, anxiety, depression, PCOS, occipital neuralgia, psychogenic nonepileptic seizures and migraine following up today virtually to discuss infusion therapy. PLAN: Therapy plan placed: NON-DHE Home meds to hold (triptan/muscle relaxer/OTC/NSAIDs): toradol, norflex Interval Headache History: Pt logged in 16 minutes late for visit and was accommodated. Coni Nicholson is a 27 year old year old female, with a history of asthma, anxiety, depression, PCOS, occipital neuralgia, psychogenic nonepileptic seizures and migraine following up today virtually for headaches. Since the last visit, the patient states that their headaches are much worse. Reports she sees no change with botox. She had one round in November. Feels her migraines got worse afterwards. She would like to try another monthly self injection. She has tried Ajovy and Emgality, didn't do anything. Currently being treated for kidney stones and UTI. Also recently hospitalized for PNA. Headache 1 Number of migraine headache days/month: 15 Number of headache free days/month: 10 Days missed from work or school in the last month: 15 days Preventative: Botox, Lamictal Abortive: Parafon Forte, Toradol, Phenergan, Zomig Analgesic Ketorolac (Toradol) Anti-Convulsant Lamotrigine (Lamictal) Topiramate (Topamax, Trokendi XL, Qudexy) Anti-Depressant and Antipsychotic Amitriptyline (Elavil) [place] (Eskalith, Lithobid) Nortriptyline (Pamelor, Aventyl) Anti-Migraine Dihydroergotamine (DHE-45, Migranal) Naratriptan (Amerge) Sumatriptan (Imitrex, Sumavel) Zolmitriptan (Zomig) Blood Pressure Propranolol (Inderal) MABs Fremanezumab (Ajovy) Galcanezumab (Emgality) Botulinum Toxin Onabotulinum Toxin A (Botox) Muscle Relaxer Baclofen (Lioresal) ineffective Methocarbamol (Robaxin) ineffective Orphenadrine (Norflex, Norgesic forte) helpful Tizanidine (Zanaflex) ineffective Supplements Magnesium No past medical history on file. PAST SURGICAL HISTORY Procedure Laterality Date VAGINAL HYSTERECTOMY 2022 ALLERGIES Allergen Reactions Dihydroergotamine Intolerance Chest tightness, numbness and tingling in bilateral extremities, increased anxiety Adhesive Tape-Silic* Rash Azithromycin Other: See Comments Depakote [Divalproe* Hives Keflex [Cephalexin] Rash Keppra [Levetiracet* Itching Pyrilamine-Dextrome* Hives Reglan [Metoclopram* Intolerance Vortioxetine Hives Current Medications: Phentermine HCl 37.5 mg tablettake 1 tablet by mouth every morning before mealsDisp: Rfl: ZOLMitriptan (ZOMIG) 5 mg nasal sprayUse 1 Manteno in the nose as needed at onset of migraine headache. If symptoms persist or return, may repeat dose in other nostril after 2 hours. Maximum of 2 sprays per 24 hoursDisp: 10 EachRfl: 2 orphenadrine ER (NORFLEX) 100 mg tabletTake 1 tablet by mouth two times a day as needed.Disp: 30 tabletRfl: 5 promethazine (PHENERGAN) 12.5 mg tabletTake 1 tablet by mouth every 6 hours as needed.Disp: 90 tabletRfl: 5 keTORolac (TORADOL) 10 mg tabletTake 1 tablet by mouth every 6 hours as needed (severe migraine).Disp: 20 tabletRfl: 2 lithium carbonate 300 mg tabletDisp: Rfl: magnesium oxide 400 mg magnesium capmagnesium 400 mg (as magnesium oxide) capsuleDisp: Rfl: traZODone (DESYREL) 100 mg tabletDisp: Rfl: vilazodone (VIIBRYD) 20 mg tabletDisp: Rfl: lamoTRIgine (LAMICTAL) (more content not included)... [facility] 03-22-2023 Note HNO ID: [id number] Author: SUZAN DRIVER APRN.ADMITTING COUNSELOR Service: ? Author Type: Nurse Practitioner Type: Progress Notes Filed: 03/22/2023 16:40 Note Text: Headache Center - Virtual Visit Infusion Triage This visit was conducted as a virtual visit, with patient's permission, via Zoom. It required patient-provider interaction for the medical decision making as documented below. Patient stated name and Patient location [place] I have communicated my name and active licensure. The patient's identity and physical location were verified at the time of this visit. Either the patient or their legal retail service representative has been informed of the risks and benefits of -- and alternatives to -- treatment through a remote evaluation and consents to proceed with the evaluation remotely. Date of last visit: 12/12/22 with Logan Barth CNP PLAN: IV infusions x 3 - hold home nsaids and muscle relaxants Continue present medications as rx'ed She is due for botox shortly but not scheduled, will have schedulers contact her Parafon forte ineffective, will retrial Norflex instead If no improvement consider alternate CGRP mab, nerve block (her insurance requires auth) HPI: Coni Nicholson is a 27 year old year old female, with a history of asthma, anxiety, depression, PCOS, occipital neuralgia, psychogenic nonepileptic seizures and migraine, following up today virtually to discuss infusion therapy. Did not end up coming in for infusions after her November 2022 visit due to illness- had surgery then contracted pneumonia, kidney stone and UTI. She has been going to the ER a lot. Past infusion intolerances: She did not do well with DHE as she experienced chest tightness and paresthesias. Infusions 11/11/22 NON-DIHYDROERGOTAMINE Treatment 1 promethazine HCl 25 mg diphenhydramine HCl 25 mg 0.9 % sodium chloride 500 mL ketorolac tromethamine 30 mg levetiracetam 500 mg methocarbamol 1000 mg magnesium sulfate/D5W 1 g diphenhydramine HCl 50 mg ondansetron HCl/PF 8 mg Headache 1 Location: right, left and retro-orbital Quality/Description: throbbing and sharp Associated Symptoms: Photophobia: yes Phonophobia: yes Nausea: yes Number of migraine headache days/month: 30 Migraine headache severity: 5/10 Number of NON-migraine headache days/month: 0 Total Number of headache days/month: 30 Number of headache free days/month: 0 Days missed from work or school in the last month: 15 days Headache status since the last visit: worse Current Preventative: Botox PREEMPT Protocol (last round was 10/12/22) Current Abortive: zomig NS, norflex, phenergan, toradol Labs to Review: Yes, most recent CMP below CMP 3 mo ago Sodium 134 - 146 mmol/L 139 Potassium 3.5 - 5.0 mmol/L 4.0 Chloride 98 - 109 mmol/L 109 Carbon Dioxide 22 - 32 mmol/L 23 Anion Gap 5 - 15 mmol/L 7 BUN 5 - 23 mg/dL 16 Creatinine 0.40 - 1.00 mg/dL 0.81 Comment: METHOD TRACEABLE TO IDMS STANDARD Glucose 65 - 99 mg/dL 76 Calcium 8.5 - 10.5 mg/dL 9.3 Total Protein 6.0 - 8.0 g/dL 7.6 Albumin 3.2 - 5.3 g/dL 4.3 Alkaline Phosphatase 39 - 130 U/L 77 AST 0 - 41 U/L 14 ALT 0 - 31 U/L 16 Total bilirubin 0.3 - 1.2 mg/dL 0.4 eGFR (CKD-EPI)non-race dependent >59 ml/min/1.73sq.m >90 Analgesic Ketorolac (Toradol) Anti-Convulsant Lamotrigine (Lamictal) Topiramate (Topamax, Trokendi XL, Qudexy) Anti-Depressant and Antipsychotic Amitriptyline (Elavil) [place] (Eskalith, Lithobid) Nortriptyline (Pamelor, Aventyl) Anti-Migraine Dihydroergotamine (DHE-45, Migranal) Naratriptan (Amerge) Sumatriptan (Imitrex, Sumavel) Zolmitriptan (Zomig) Blood Pressure Propranolol (Inderal) MABs Fremanezumab (Ajovy) Galcanezumab (Emgality) Botulinum Toxin Onabotulinum Toxin A (Botox) Muscle Relaxer Baclofen (Lioresal) ineffective Methocarbamol (Robaxin) [...] Reglan [Metoclopram* Intolerance Vortioxetine Hives Current Medications: ZOLMitriptan (ZOMIG) 5 mg nasal sprayUse 1 Manteno in the nose as needed at onset of migraine headache. If symptoms persist or return, may repeat dose in other nostril after 2 hours. Maximum of 2 sprays per 24 hoursDisp: 10 EachRfl: 2 orphenadrine ER (NORFLEX) 100 mg tabletTake 1 tablet by mouth two times a day as needed.Disp: 30 tabletRfl: 5 promethazine (PHENERGAN) 12.5 mg tabletTake 1 tablet by mouth every 6 hours as needed.Disp: 90 tabletRfl: 5 keTORolac (TORADOL) 1 (more content not included)... [facility] 12-13-2022 Miscellaneous Notes Images from the original note were not included. Called patient to schedule for 3 days of Non DHE IV infusions. She started she was currently driving and would call back to schedule Logan Barth APRN.ADMITTING COUNSELOR P Headache Infusion Scheduling Pool; P C21 Botox Pool Pls schedule for infusions, and also her next botox treatment - thank you. KG documented in this encounter [facility] 10-24-2023 Miscellaneous Notes PA submitted through CoverMyMeds for Orphenadrine Citrate ER 100mg. Cohen Code: [id number] documented in this encounter [facility] 12-12-2022 Note HNO ID: [id number] Author: Logan Barth APRN.ADMITTING COUNSELOR Service: ? Author Type: Nurse Practitioner Type: [...] visit. Either the patient or their legal retail service representative has been informed of the risks [...] XL, Qudexy) Anti-Depressant and Antipsychotic Amitriptyline (Elavil) [place] (Eskalith, Lithobid) Nortriptyline (Pamelor, Aventyl) Anti-Migraine Dihydroergotamine [...] ZOLMitriptan (ZOMIG) 5 mg nasal sprayUse 1 Manteno in the nose as needed at onset of migraine headache. If symptoms persist or return, may repeat dose in other nostril after 2 hours. Maximum of 2 sprays per 24 hoursDisp: 10 EachRfl: 2 lamoTRIgine (LAMICTAL) 150 mg tabletDisp: Rfl: diazePAM (VALIUM) 10 mg tabletDisp: Rfl: I have reviewed the Hea (more content not included)... [facility] 12-09-2022 Miscellaneous Notes Patient would also like [...] E-Scribe Last office visit 11/10/22 with Harika pettit Next office visit 12/12/22 with Tab pettit Per Patient She is out of medication [...] Name: Emory Reilly documented in this encounter [facility] 11-11-2022 Note HNO ID: [id number] Author: Suzan Driver APRN.FADY Service: ? Author Type: Nurse Practitioner Type: Progress Notes Filed: 11/11/2022 11:26 AM Note Text: Coni Pradeep Nicholson in for day 1 of PINEDA [...] d/c since symptoms have resolved. Suzan Driver APRN.ADMITTING COUNSELOR [facility] 11-11-2022 History of Presen t illness Narrative Coni Pradeep Nicholson in for day 1 of PINEDA [...] d/c since symptoms have resolved. Suzan Driver APRN.ADMITTING COUNSELOR 0824: Patient in for first day of IV infusions. Patient rated headache 8/10. Patient stated severe nausea and severe dizziness. Patient educated on medications to be administered. Patient verbalized understanding and agreed to proceed with infusions. 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 She would like PRN benadryl for [...] with it. Message sent to Suzan Driver SHANK TURNER to update. Benadryl hypersensitivity released and administered. Pt also very nauseated. PRN zofran administered. 1050: Pt fell back asleep. Woke pt up and she she stated relief from all itching. Denies any other symptoms/side effects at this time. Pts infusions complete. Pt rated headache 7/10. Pt stated mild nausea and denied dizziness. 1055: Suzan Driver SHANK TURNER in txt room to see patient. 1105: [...] Driver NP notified. documented in this encounter [facility] 11-11-2022 Note HNO ID: [id number] Author: Coretta Quintanilla RN Service: ? Author Type: Registered Nurse Type: Progress Notes Filed: 11/11/2022 11:27 AM Note Text: 0824: Patient in for first day of IV infusions. Patient rated headache 8/10. Patient stated severe nausea and severe dizziness. Patient educated on medications to be administered. Patient verbalized understanding and agreed to proceed with infusions. 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 She would like PRN benadryl for [...] with it. Message sent to Suzan Driver SHANK TURNER to update. Benadryl hypersensitivity released and administered. Pt also very nauseated. PRN zofran administered. 1050: Pt fell back asleep. Woke pt up and she she stated relief from all itching. Denies any other symptoms/side effects at this time. Pts infusions complete. Pt rated headache 7/10. Pt stated mild nausea and denied dizziness. 1055: Suzan Driver SHANK TURNER in txt room to see patient. 1105: Pt discharged from treatment room via wheelchair due to drowsiness to her significant other. 1110: When cleaning chair after pt left, white pill found in chair. Tablet identified as baclofen. During initial assessment, after reviewing home medication list, pt denied any other medications missing from the list. Baclofen not listed on home medication list. Suzan Driver SHANK TURNER notified. [facility] 11-10-2022 Note HNO ID: [id number] Author: Ольга Aguilar APRN.ADMITTING COUNSELOR Service: ? Author Type: Nurse Practitioner Type: Progress Notes Filed: 11/10/2022 1:58 PM Note Text: Headache Center - Virtual Visit Infusion Triage This visit was conducted as a virtual visit, with patient's permission, via ZOOM. It required patient-provider interaction for the medical decision making as documented below. Patient stated name and Patient location [facility] I have communicated my name and active licensure. The patient's identity and physical location were verified at the time of this visit. Either the patient or their legal retail service representative has been informed of the risks [...] NS New health events/diagnosis since last visit (ID/stroke/DM/HTN/etc): no Cardiovascular risk factors: none Past infusion intolerances: July 2022(Zofran,phenergan,benadryl,D HE,Toradol,Keppra,mag,robaxin,) DHE itching perineum Headache 1 Location: frontal Quality/Description: throbbing, pressure and piercing/stabbing Associated Symptoms: Photophobia: yes Phonophobia: yes Nausea: yes Vomiting: yes Other symptoms: neck pain Worse with activity: yes Number of migraine headache days/month: 6 Migraine headache severity: 10 Number of headache free days/month: 10 Duration [...] Lymph 1.00 - 4.00 k/uL 0.84 (L) Runnels% % 0.7 Abs Runnels <0.87 k/uL 0.06 Eosin% % 0.1 Abs [...] 2.7 TSH 0.270 - 4.200 mIU/L 0.537 [place] 0.6 - 1.2 mmol/L 0.1 (L) Analgesic Ketorolac (Toradol) Anti-Convulsant Lamotrigine (Lamictal) Topiramate (Topamax, Trokendi XL, Qudexy) Anti-Depressant and Antipsychotic Amitriptyline (Elavil) [place] (Eskalith, Lithobid) Nortriptyline (Pamelor, Aventyl) Anti-Migraine Dihydroergotamine [...] day as need (more content not included)... [facility] 11-10-2022 History of Presen t illness Narrative Images from the original note were not included. Headache Center - Virtual Visit Infusion Triage This visit was conducted as a virtual visit, with patient's permission, via ZOOM. It required patient-provider interaction for the medical decision making as documented below. Patient stated name and Patient location [facility] I have communicated my name and active licensure. The patient's identity and physical location were verified at the time of this visit. Either the patient or their legal retail service representative has been informed of the risks [...] infusion therapy. Date of last visit: 10/12/22 hRina Driver APRN Onset of current headache: 2 weeks What medications have you tried for this headache cycle: ER x 1, Toradol, Parafon Forte, Zomig NS New health events/diagnosis since last visit (ID/stroke/DM/HTN/etc): no Cardiovascular risk factors: none Past infusion [...] Lymph 1.00 - 4.00 k/uL 0.84 (L) Runnels% % 0.7 Abs Runnels <0.87 k/uL 0.06 Eosin% % 0.1 Abs [...] 2.7 TSH 0.270 - 4.200 mIU/L 0.537 [place] 0.6 - 1.2 mmol/L 0.1 (L) Analgesic Ketorolac (Toradol) Anti-Convulsant Lamotrigine (Lamictal) Topiramate (Topamax, Trokendi XL, Qudexy) Anti-Depressant and Antipsychotic Amitriptyline (Elavil) [place] (Eskalith, Lithobid) Nortriptyline (Pamelor, Aventyl) Anti-Migraine Dihydroergotamine [...] ZOLMitriptan (ZOMIG) 5 mg nasal spray^Use 1 Manteno in the nose as needed at onset [...] these with the patient: yes Ольга Aguilar APRN.ADMITTING COUNSELOR HEADACHE SCORES: Headache Questions 06/24/2022 08/31/2022 09/12/2022 [...] in rate, volume and articulation. Short and jail memory, cognition and general fund of knowledge [...] 25 minutes Ольга Aguilar APRN.FADY Headache Section [facility] November 10, 2022 documented in this encounter [facility] 11-10-2022 Miscellaneous Notes PATIENT SCHEDULED FOR [...] get infusions scheduled. Number to return call [phone] Okay to leave a message ? Yes Last office visit 10/12/22 with Uche Next office visit Not scheduled. Thank you calling [facility] [place]. You will receive a return call within 48 hours ( or 2 business days if close to the weekend). If you feel that this is an urgent issue and needs immediate attention, it is recommended that you contact your primary care provider office or proceed to your nearest Urgent Care Center of Emergency Room ED for evaluation/treatment. documented in this encounter [facility] 10-12-2022 Note HNO ID: [id number] Author: Suzan Driver APRN.FADY Service: ? Author Type: Nurse Practitioner [...] from the botox procedure. Level of service: [facility] level 3 (20-29 min). Time spent 20 min on the day of service, which included preparing to see the patient, [id number] patient care, completing clinical documentation, obtaining and/or reviewing separately obtained history, performing a medically appropriate examination, counseling and educating the patient/family/caregiver, and ordering medications, tests, or procedures. Suzan Driver APRN.ADMITTING COUNSELOR BOTOX PROCEDURE VISIT [place]ulinum Toxin A (BotoxTM) for Migraine Indication: Chronic Intractable Migraine Treatment #: 1 Referral Expiration: 09/14/2023 Number of moderate-severe migraine days/month: 15 Number of mild migraine days/month: 0 Number of headache free days/month: 15 (360 headache-free hours) Migraine severity: 10 The patient has been assessed for disorders which could contribute to breathing or swallowing difficulty, and there is no contraindication with PREEMPT Botox. There is no documented allergic reaction/hypersensitivity to any botulinum toxin and there is no active infection at proposed injection site. HEADACHE SCORES: Headache Questions 06/24/2022 08/31/202209/1209/12/2022 ER visits since last office visit: 8 [...] for migraine Informed Consent Consent Obtained: Written [place] Protocol A moment to CARE was completed [...] visibility. No medicat (more content not included)... [facility] 10-12-2022 Note HNO ID: [id number] Author: Suzan Driver APRN.ADMITTING COUNSELOR Service: ? Author Type: Nurse Practitioner Type: [...] for migraine Informed Consent Consent Obtained: Written [place] Protocol A moment to CARE was completed [...] (Sites) Right (Units) Right (Sites) TOTAL (Units) Big Data Developer 5 1 5 1 10 Procerus Units: [...] XL, Qudexy) Anti-Depressant and Antipsychotic Amitriptyline (Elavil) [place] (Eskalith, Lithobid) Nortriptyline (Pamelor, Aventyl) Anti-Migraine Naratriptan (Amerge) Sumatriptan (Imitrex, Sumavel) Zolmitriptan (Zomig) Blood Pressure Propranolol (Inderal) MABs Fremanezumab (Ajovy) Supplements Magnesium Suzan Driver APRN.FADY Headache Section [facility] October 12, 2022 [facility]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 PHYS/QHP&GT;84 HR W/O VID Tyrone Dolan MD, PhD [address] [place] [address] [place] [address] Referral ID Status Reason Start Date Expiration Date Visits Requested Visits Authorized [id number] Pending Review Auto-Generat ed Referral 10/29/2021 10/29/2022 1 1 * Consult, Test, Treat (Routine) - Authorized Specialty Diagnoses / Procedures Referred By Contac t Referred To Contact Diagnoses Chronic intractable headache, unspecified headache type Procedures CONSULT TO HEADACHE CLINIC OFFICE/OUTPATIENT [facility] MDM 60-74 MINUTES Tyrone Dolan MD, PhD [address] [place] [address] Referral ID Status Reason Start Date Expiration Date Visits Requested Visits Authorized [id number] Authorized PCP Requested Referral 10/29/2021 10/29/2022 1 1 [facility] for referral (narrative)* Outpatient Procedure (Routine) - Pending Review Specialty Diagnoses / Procedures Referred By Contac t Referred To Contact [facility] Diagnoses Seizure-like activity (HCC) Procedures EPIL EEG ROUTINE ELECTROENCEPHALOGRAM REC COMA/SLEEP ONLY Nelly Saldaña PA-C [address] [place] [address] [facility] [address] [place] [address] Referral ID Status Reason Start Date Expiration Date Visits Requested Visits Authorized [id number] Pending Review Auto-Generat ed Referral 11/08/2021 11/08/2022 1 1 [facility] Advance Directives No Advanced Directives Records FoundDocuments on File Type Date Recorded Patient Reserve Officer Expl anation ACP-Advance Directive ACP-Power of Trim Setter Helper Latest Code Status on File Code Status [...] t Referred To Contact Samples, MD Jesse [address] [place] [address] Referral ID Status Reason Start Date Expiration Date Visits Re quested Visits Authorized [id number] Closed 1 1 Additional Source Comments Source Comments (unrecognize d section and content) In the event this informatio n is protected by the Federal Confidentiality of Alcohol and Drug Abuse Patient Records regulations: The Federal rules restrict any use of the information to criminally investigate or prosecute any alcohol or drug abuse patient.[facility] the event this information is protected by the Federal Confidentiality of Alcohol and Drug Abuse Patient Records regulations: The Federal rules restrict any use of the information to criminally investigate or prosecute any alcohol or drug abuse patient.[facility] the event this information is protected by the Federal Confidentiality of Alcohol and Drug Abuse Patient Records regulations: The Federal rules restrict any use of the information to criminally investigate or prosecute any alcohol or drug abuse patient.[facility] the event this information is protected by the Federal Confidentiality of Alcohol and Drug Abuse Patient Records regulations: The Federal rules restrict any use of the information to criminally investigate or prosecute any alcohol or drug abuse patient.[facility] the event this information is protected by the Federal Confidentiality of Alcohol and Drug Abuse Patient Records regulations: The Federal rules restrict any use of the information to criminally investigate or prosecute any alcohol or drug abuse patient.[facility] the event this information is protected by the Federal Confidentiality of Alcohol and Drug Abuse Patient Records regulations: The Federal rules restrict any use of the information to criminally investigate or prosecute any alcohol or drug abuse patient.[facility] the event this information is protected by the Federal Confidentiality of Alcohol and Drug Abuse Patient Records regulations: The Federal rules restrict any use of the information to criminally investigate or prosecute any alcohol or drug abuse patient.[facility] the event this information is protected by the Federal Confidentiality of Alcohol and Drug Abuse Patient Records regulations: The Federal rules restrict any use of the information to criminally investigate or prosecute any alcohol or drug abuse patient.[facility] the event this information is protected by the Federal Confidentiality of Alcohol and Drug Abuse Patient Records regulations: The Federal rules restrict any use of the information to criminally investigate or prosecute any alcohol or drug abuse patient.[facility] the event this information is protected by the Federal Confidentiality of Alcohol and Drug Abuse Patient Records regulations: The Federal rules restrict any use of the information to criminally investigate or prosecute any alcohol or drug abuse patient.[facility] the event this information is protected by the Federal Confidentiality of Alcohol and Drug Abuse Patient Records regulations: The Federal rules restrict any use of the information to criminally investigate or prosecute any alcohol or drug abuse patient.[facility] the event this information is protected by the Federal Confidentiality of Alcohol and Drug Abuse Patient Records regulations: The Federal rules restrict any use of the information to criminally investigate or prosecute any alcohol or drug abuse patient.[facility] the event this information is protected by the Federal Confidentiality of Alcohol and Drug Abuse Patient Records regulations: The Federal rules restrict any use of the information to criminally investigate or prosecute any alcohol or drug abuse patient.[facility] the event this information is protected by the Federal Confidentiality of Alcohol and Drug Abuse Patient Records regulations: The Federal rules restrict any use of the information to criminally investigate or prosecute any alcohol or drug abuse patient.[facility] the event this information is protected by the Federal Confidentiality of Alcohol and Drug Abuse Patient Records regulations: The Federal rules restrict any use of the information to criminally investigate or prosecute any alcohol or drug abuse patient.[facility] the event this information is protected by the Federal Confidentiality of Alcohol and Drug Abuse Patient Records regulations: The Federal rules restrict any use of the information to criminally investigate or prosecute any alcohol or drug abuse patient.[facility] the event this information is protected by the Federal Confidentiality of Alcohol and Drug Abuse Patient Records regulations: The Federal rules restrict any use of the information to criminally investigate or prosecute any alcohol or drug abuse patient.[facility] the event this information is protected by the Federal Confidentiality of Alcohol and Drug Abuse Patient Records regulations: The Federal rules restrict any use of the information to criminally investigate or prosecute any alcohol or drug abuse patient.[facility] the event this information is protected by the Federal Confidentiality of Alcohol and Drug Abuse Patient Records regulations: The Federal rules restrict any use of the information to criminally investigate or prosecute any alcohol or drug abuse patient.[facility] the event this information is protected by the Federal Confidentiality of Alcohol and Drug Abuse Patient Records regulations: The Federal rules restrict any use of the information to criminally investigate or prosecute any alcohol or drug abuse patient.[facility] the event this information is protected by the Federal Confidentiality of Alcohol and Drug Abuse Patient Records regulations: The Federal rules restrict any use of the information to criminally investigate or prosecute any alcohol or drug abuse patient.[facility] the event this information is protected by the Federal Confidentiality of Alcohol and Drug Abuse Patient Records regulations: The Federal rules restrict any use of the information to criminally investigate or prosecute any alcohol or drug abuse patient.[facility] the event this information is protected by the Federal Confidentiality of Alcohol and Drug Abuse Patient Records regulations: The Federal rules restrict any use of the information to criminally investigate or prosecute any alcohol or drug abuse patient.[facility] the event this information is protected by the Federal Confidentiality of Alcohol and Drug Abuse Patient Records regulations: The Federal rules restrict any use of the information to criminally investigate or prosecute any alcohol or drug abuse patient.[facility] the event this information is protected by the Federal Confidentiality of Alcohol and Drug Abuse Patient Records regulations: The Federal rules restrict any use of the information to criminally investigate or prosecute any alcohol or drug abuse patient.[facility] the event this information is protected by the Federal Confidentiality of Alcohol and Drug Abuse Patient Records regulations: The Federal rules restrict any use of the information to criminally investigate or prosecute any alcohol or drug abuse patient.[facility] the event this information is protected by the Federal Confidentiality of Alcohol and Drug Abuse Patient Records regulations: The Federal rules restrict any use of the information to criminally investigate or prosecute any alcohol or drug abuse patient.[facility] the event this information is protected by the Federal Confidentiality of Alcohol and Drug Abuse Patient Records regulations: The Federal rules restrict any use of the information to criminally investigate or prosecute any alcohol or drug abuse patient.[facility] Reason for Visit (unrecogniz ed section and content) Reason Comments Future Appointment [place], Any Reason Comments Migraine seen at [facility] yest erday for Migrane and D & [...] INFUSION HEADACHE Maria Del Rosario Hahn MD [address] [place] [address] Neur Headache Main [address] [place] [address] Referral ID Status Reason Start Date Expiration Date Visits Re quested Visits Authorized [id number] Closed 07/28/2022 09/26/2022 1 1 Reason Comments Chronic Migraine Reason Comments Chronic Migraine Reason Comments Insurance Authorization Zomig 5MG nasal spray Reason Comments Infusion Reason Comments Migraine Specialty Diagnoses / Procedures Referred By Contac t Referred To Contact Neurology / HEADACHE Diagnoses POSSIBLE DHE/WAITING FOR ORDERS Procedures INFUSION HEADACHE Self Neur Headache [address] [place] [address] Referral ID Status Reason Start Date Expiration Date V isits Requested Visits Authorized [id number] Authorized 11/10/2022 02/08/2023 1 99 Reason Onset [...] mg (COMPLETED) 15 mg, IntraVENous, ONCE, On Mon12/24/20 at 2030, For 1 dose 2044 (Given - Provid er: Praveena Ruffin RN) ondansetron (ZOFRAN) injection 4 mg (COMPLETED) 4 mg, IntraVENous, ONCE, On Mon12/24/20 at 2030, For 1 dose 2043 (Given [...] off 0834 (Patch Applied - Provider: Clementine Cm RN)2033 [...] Midline or Central Line = 20 mL/lumen 2045 (Given - Provider: Brittney Santana RN) 1114 [...] section and content) DATE CREATED AUTHOR 12/26/2020 [facility] DATE CREATED AUTHOR AUTHOR'S ORGANIZ ATION 10/25/2021 [facility] DATE CREATED AUTHOR AUTHOR'S ORGANIZ ATION 05/26/2022 Edil Salmon [facility] DATE CREATED AUTHOR AUTHOR'S ORGANIZ ATION 08/02/2022 [facility] DATE CREATED AUTHOR AUTHOR'S ORGANIZ ATION 03/22/2023 [facility] DATE CREATED AUTHOR AUTHOR'S ORGANIZ ATION 03/22/2023 [facility] EPIC DATE CREATED AUTHOR AUTHOR'S ORGANIZ ATION 03/24/2023 [facility] Ordered Prescriptions (unrec ognized section and content) Prescription Sig Dispensed Refills Start Date End Da te lamoTRIgine (LAMICTAL) 25 MG tablet Take 2 tablets by mouth daily 30 tablet 3 10/21/2021 Care Teams (unrecognized sec tion and content) [employer] Relationship Specialty Start Date End Date Angélica Arthur, FISH FARM LABORER - ADMITTING COUNSELOR [address] [place] [id number] PCP - General Nurse Practitioner 12/24/20 [employer] Relationship Specialty Start Date End Date HoyNoamMaria Del Rosario M (Historical) PCP - General 05/21/13 [employer] Relationship Specialty Start Date End Date Hoy Maria Del Rosario M (Historical) PCP - General 05/21/13 [employer] Relationship Specialty Start Date End Date Hoy Maria Del Rosario M (Historical) PCP - General 05/21/13 [employer] Relationship Specialty Start Date End Date Hoy Maria Del Rosario M (Historical) PCP - General 05/21/13 [employer] Relationship Specialty Start Date End Date Hoy, Maria Del Rosario M (Historical) PCP - General 05/21/13 [employer] Relationship Specialty Start Date End Date Hoy, Maria Del Rosario M (Historical) PCP - General 05/21/13 [employer] Relationship Specialty Start Date End Date Hoy, Maria Del Rosario M (Historical) PCP - General 05/21/13 [employer] Relationship Specialty Start Date End Date Hoy, Maria Del Rosario M (Historical) PCP - General 05/21/13 [employer] Relationship Specialty Start Date End Date Hoy, Maria Del Rosario M (Historical) PCP - General 05/21/13 [employer] Relationship Specialty Start Date End Date Hoy Maria Del Rosario M (Historical) PCP - General 05/21/13 [employer] Relationship Specialty Start Date End Date Hoy, Maria Del Rosario M (Historical) PCP - General 05/21/13 [employer] Relationship Specialty Start Date End Date Hoy, Maria Del Rosario M (Historical) PCP - General 05/21/13 [employer] Relationship Specialty Start Date End Date Hoy, Maria Del Rosario M (Historical) PCP - General 05/21/13 [employer] Relationship Specialty Start Date End Date Hoy, Maria Del Rosario M (Historical) PCP - General 05/21/13 [employer] Relationship Specialty Start Date End Date Hoy, Maria Del Rosario M (Historical) PCP - General 05/21/13 [employer] Relationship Specialty Start Date End Date Hoy, Maria Del Rosario M (Historical) PCP - General 05/21/13 [employer] Relationship Specialty Start Date End Date Hoy, Maria Del Rosario M (Historical) PCP - General 05/21/13 [employer] Relationship Specialty Start Date End Date Hoy, Maria Del Rosario M (Historical) PCP - General 05/21/13 [employer] Relationship Specialty Start Date End Date Hoy, Maria Del Rosario M (Historical) PCP - General 05/21/13 [employer] Relationship Specialty Start Date End Date Hoy, Maria Del Rosario M (Historical) PCP - General 05/21/13 [employer] Relationship Specialty Start Date End Date Hoy, Maria Del Rosario M (Historical) PCP - General 05/21/13 [employer] Relationship Specialty Start Date End Date Hoy, [...] BE BASED ON THE PRIMARY CLINICAL RECORDS. [employer] [facility]. provides no warranty or guarantee of the accuracy or completeness of information in this document.
[2023-03-25 14:54] VITALS: BP 102/57; PULSE 105; RESP 18; O2SAT 98
--- NOTE | 2023-03-25 15:10 | ED_ITS ---
HPI - General Adult General Chief complaint: Headache Stated complaint: headache Time Seen by Provider: 03/25/23 15:06 Source: patient Mode of arrival: walk-in Limitations: no limitations History of Present Illness HPI narrative: Patient is a 27-year-old female well-known to this emergency department for history of chronic migraines who presents for a headache for the last 2 to 3 days. She was seen in this emergency department 1 week ago on 03/15/[address] of the brain. She states she has some pain to the back of the head but mostly the pain is above her eyes which is typical for her. She has had no visual loss, peripheral paresthesias, fevers. She reports multiple associated episodes of nausea and vomiting and states she has not been able to eat or drink much in the last several days. She is not concerned for . She takes sumatriptan and Zomig at home which is prescribed to her by her neurologist at the [facility]. She states she is due for an infusion at the [facility] on the of this month. Related Data Home Medications Medication Instructions Recorded Confirmed baclofen 10 mg tablet 10 mg PO TID spasms 07/20/22 03/03/23 diazepam 10 mg tablet 10 mg PO BID 07/20/22 03/03/23 epinephrine 0.3 mg/0.3 mL 0.3 mg IM Q10M PRN anaphylaxis 07/20/22 03/03/23 injection, auto-injector estradiol 0.5 mg tablet 0.5 mg PO QAM 01/06/23 03/03/23 diphenhydramine HCl 25 mg capsule 75 mg PO Q6H PRN migraine headache 01/26/23 03/03/23 (Benadryl) ibuprofen 800 mg tablet 800 mg PO Q8H PRN pain 01/26/23 03/03/23 lamotrigine 200 mg tablet 200 mg PO BID 01/26/23 03/03/23 lithium carbonate 300 mg capsule 600 mg PO BID 01/26/23 03/03/23 orphenadrine citrate 100 mg 100 mg PO BID PRN migraine 01/26/23 03/03/23 tablet,extended release promethazine 25 mg tablet 12.5 mg PO Q6H PRN nausea and 01/26/23 03/03/23 vomiting albuterol sulfate 2.5 mg/3 mL 2.5 mg inhalation Q4H PRN 03/03/23 03/03/23 (0.083 %) solution for nebulization shortness of breath or wheezing ketorolac 10 mg tablet 10 mg PO Q6H PRN migraine headache 03/03/23 03/03/23 magnesium oxide 400 mg PO .qhs 03/03/23 03/03/23 trazodone 300 mg tablet 300 mg PO .qhs 03/03/23 03/03/23 Previous Rx's Medication Instructions Recorded ondansetron 4 mg disintegrating 4 mg PO Q6H PRN nausea and 02/26/23 tablet vomiting #20 tabs budesonide-formoterol HFA 160 2 inh inhalation Q12H #10.2 grams 03/04/23 mcg-4.5 mcg/actuation aerosol inhaler (Symbicort) prednisone 20 mg tablet 20 mg PO BID 5 days #10 tabs 03/04/23 prednisone 20 mg tablet 20 mg PO BID 5 days #10 tabs 03/04/23 prochlorperazine 25 mg rectal 25 mg IA BID PRN nausea and 03/25/23 suppository (Compazine) vomiting #12 ea Allergies Allergy/AdvReac Type Severity Reaction Status Date / Time buspirone Allergy Hives Verified 03/03/23 09:09 carbamazepine Allergy Unknown Verified 03/03/23 09:09 levetiracetam [From Keppra] Allergy ITCHING Verified 03/03/23 09:09 azithromycin [From Zithromax] AdvReac Intermediate Hives Verified 03/03/23 09:09 bee venom protein (honey bee) AdvReac Intermediate Hives Verified 03/03/23 09:09 metoclopramide [From Reglan] AdvReac Intermediate panic Verified 03/03/23 09:09 adhesive tape AdvReac Mild Rash Verified 03/03/23 09:09 cephalexin [From Keflex] AdvReac Mild Hives Verified 03/03/23 09:09 dextromethorphan AdvReac Mild Unknown Verified 03/03/23 09:09 [From [place] DM] pyrilamine [From [place] DM] AdvReac Mild Unknown Verified 03/03/23 09:09 propranolol AdvReac Hives Verified 03/03/23 09:09 Review of Systems ROS Constitutional Denies: fever or chills Eyes Denies: change in vision Ears, nose, mouth, and throat Denies: throat pain or nasal congestion Cardiovascular Denies: chest pain Respiratory Denies: shortness of breath Gastrointestinal Reports: nausea and vomiting Musculoskeletal Reports: neck pain; Denies: back pain, extremity pain, extremity swelling, joint pain or limited range of motion Integumentary/Breast Denies: rash Neurological Reports: headache; Denies: numbness in extremities or weakness in extremities Endocrine Denies: excessive urination [facility] Medical History (Updated 03/25/23 @ 16:33 by MARY Celis) Chronic pain disorder ?G89.4 - Chronic pain syndrome (ICD-10) Conjunctivitis ?H10.9 - Unspecified conjunctivitis (ICD-10) Migraine ?G43.909 - Migraine, unspecified, not intractable, without status migrainosus (ICD-10) Viral upper respiratory tract infection with cough ?J06.9 - Acute upper respiratory infection, unspecified (ICD-10) Seizure disorder ?G40.909 - Epilepsy, unspecified, not intractable, without status epilepticus (ICD-10) Bipolar disorder ?F31.9 - Bipolar disorder, unspecified (ICD-10) Pelvic pain ?R10.2 - Pelvic and perineal pain (ICD-10) Headache ?R51.9 - Headache, unspecified (ICD-10) Bilateral occipital neuralgia ?M54.81 - Occipital neuralgia (ICD-10) Migraine ?G43.909 - Migraine, unspecified, not intractable, without status migrainosus (ICD-10) Post-op pain ?G89.18 - Other acute postprocedural pain (ICD-10) Combative behavior ?R46.89 - Other symptoms and signs involving appearance and behavior (ICD-10) Postoperative nausea and vomiting ?R11.2 - Nausea with vomiting, unspecified (ICD-10) ?Z98.890 - Other specified postprocedural states (ICD-10) Vaginal bleeding ?N93.9 - Abnormal uterine and vaginal bleeding, unspecified (ICD-10) Abscess of vagina ?N76.0 - Acute vaginitis (ICD-10) PCOS (polycystic ovarian syndrome) ?E28.2 - Polycystic ovarian syndrome (ICD-10) Mitral valve prolapse ?I34.1 - Nonrheumatic mitral (valve) prolapse (ICD-10) Vaginal delivery ?O80 - Encounter for full-term uncomplicated delivery (ICD-10) Nausea ?R11.0 - Nausea (ICD-10) GERD (gastroesophageal reflux disease) ?K21.9 - Gastro-esophageal reflux disease without esophagitis (ICD-10) Depression ?F32.A - Depression, unspecified (ICD-10) Blood in urine ?R31.9 - Hematuria, unspecified (ICD-10) Acne ?L70.9 - Acne, unspecified (ICD-10) Dyspareunia Brain mass ?G93.89 - Other specified disorders of brain (ICD-10) Pneumonia ?J18.9 - Pneumonia, unspecified organism (ICD-10) Kidney stones ?N20.0 - Calculus of kidney (ICD-10) COVID-19 ?U07.1 - COVID-19 (ICD-10) Bronchitis ?J40 - Bronchitis, not specified as acute or chronic (ICD-10) Asthma ?J45.909 - Unspecified asthma, uncomplicated (ICD-10) Stress incontinence ?N39.3 - Stress incontinence (female) (male) (ICD-10) Dysuria ?R30.0 - Dysuria (ICD-10) Seizure ?R56.9 - Unspecified convulsions (ICD-10) Neck pain ?M54.2 - Cervicalgia (ICD-10) Migraine ?G43.909 - Migraine, unspecified, not intractable, without status migrainosus (ICD-10) Low back pain ?M54.50 - Low back pain, unspecified (ICD-10) Head injury ?S09.90XA - Unspecified injury of head, initial encounter (ICD-10) Anxiety ?F41.9 - Anxiety disorder, unspecified (ICD-10) Surgical History (Updated 01/06/23 @ 12:50 by Rocio Schwartz NP) H/O laparoscopy (07/21/22) ?Z98.890 - Other specified postprocedural states (ICD-10) S/P RAVI-BSO ?Z90.710 - Acquired absence of both cervix and uterus (ICD-10) ?Z90.722 - Acquired absence of ovaries, bilateral (ICD-10) ?Z90.79 - Acquired absence of other genital organ(s) (ICD-10) Hx laparoscopic cholecystectomy ?Z90.49 - Acquired absence of other specified parts of digestive tract (ICD- 10) H/O: ?Z98.891 - History of uterine scar from previous surgery (ICD-10) History of appendectomy ?Z90.49 - Acquired absence of other specified parts of digestive tract (ICD- 10) Family History (Updated 07/20/22 @ 17:40 by Irlanda Weiss RN) Other Acid reflux Acute renal disease Afib Chromosomal disorder Delayed developmental milestones Diabetes Family history of hypertension High cholesterol Neuro-irritability due to autonomic dysfunction 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 level of school completed/degree received: high school graduate Gender Identity: female Exam Narrative Exam Narrative: Gen.: Awake, alert, in no distress Head: Normocephalic, atraumatic ENT: Moist mucous membranes, No nuchal rigidity or photophobia noted; Clear speech Respiratory: No respiratory distress Extremities: Moves extremities equally Psych: Normal mood and affect Neuro: No focal neuro deficit Skin: Warm, dry, intact Constitutional Vital Signs, click to edit/add: Last Vital Signs Temp 98.1 F 03/25/23 13:18 Pulse 105 H 03/25/23 14:54 Resp 18 03/25/23 14:54 BP 102/57 03/25/23 14:54 Pulse Ox 98 03/25/23 14:54 O2 Del Method Room Air 03/25/23 13:18 Course Vital Signs Vital signs: Vital Signs Temperature 98.1 F 03/25/23 13:18 Pulse Rate 103 H 03/25/23 13:18 Respiratory Rate 18 03/25/23 13:18 Blood Pressure 144/99 H 03/25/23 13:18 Pulse Oximetry 96 03/25/23 13:18 Oxygen Delivery Method Room Air 03/25/23 13:18 Temperature 98.1 F 03/25/23 13:18 Pulse Rate 105 H 03/25/23 14:54 Respiratory Rate 18 03/25/23 14:54 Blood Pressure 102/57 03/25/23 14:54 Pulse Oximetry 98 03/25/23 14:54 Oxygen Delivery Method Room Air 03/25/23 13:18 Medical Decision Making MDM Narrative Medical decision making narrative: Patient had unremarkable CT imaging of the brain 1 week ago, she has no new falls or injuries. No focal neurodeficits. Headache is consistent with previous. She has unremarkable vital signs. IV was attempted without success, patient is a notoriously difficult IV start. Intramuscular injections were given in the ER. She was in the emergency department for 3-1/2 hours with no episodes of emesis. She is discharged home with a prescription of Compazine to follow-up with her neurologist at [facility]. Return to the ER if symptoms change or worsen.Patient reevaluated by attending physician prior to discharge. Patient request morphine on reevaluation, she is not typically given morphine for her headaches, I do not feel this is indicated for this patient given her history of chronic headaches. Her previous visits for migraine do not show that she was given morphine. She was given a Fioricet and discharged home with a prescription for Compazine. Return to the ER if symptoms change or worsen Medical Records Medical records reviewed: Yes I reviewed the patient's medical records Discharge Plan Discharge Chief Complaint: Headache Clinical Impression: Headache Patient Disposition: Home, Self-Care Time of Disposition Decision: 16:33 Condition: Good Prescriptions / Home Meds: New prochlorperazine [Compazine] 25 mg suppository 25 mg IA BID PRN (Reason: nausea and vomiting) Qty: 12 0RF No Action baclofen 10 mg tablet 10 mg PO TID diazepam 10 mg tablet 10 mg PO BID epinephrine 0.3 mg/0.3 mL auto-injector 0.3 mg IM Q10M PRN (Reason: anaphylaxis) Rx Instructions: for 2 doses ondansetron 4 mg tablet,disintegrating 4 mg PO Q6H PRN (Reason: nausea and vomiting) Qty: 20 0RF albuterol sulfate 2.5 mg /3 mL (0.083 %) solution for nebulization 2.5 mg inhalation Q4H PRN (Reason: shortness of breath or wheezing) trazodone 300 mg tablet 300 mg PO .qhs magnesium oxide 400 mg magnesium tablet 400 mg PO .qhs ketorolac 10 mg tablet 10 mg PO Q6H PRN (Reason: migraine headache) prednisone 20 mg tablet 20 mg PO BID 5 Days Qty: 10 0RF prednisone 20 mg tablet 20 mg PO BID 5 Days Qty: 10 0RF budesonide-formoterol [Symbicort] 160-4.5 mcg/actuation HFA aerosol inhaler 2 inh inhalation Q12H Qty: 10.2 0RF estradiol 0.5 mg tablet 0.5 mg PO QAM ibuprofen 800 mg tablet 800 mg PO Q8H PRN (Reason: pain) promethazine 25 mg tablet 12.5 mg PO Q6H PRN (Reason: nausea and vomiting) lithium carbonate 300 mg capsule 600 mg PO BID orphenadrine citrate 100 mg tablet extended release 100 mg PO BID PRN (Reason: migraine) lamotrigine 200 mg tablet 200 mg PO BID diphenhydramine HCl [Benadryl] 25 mg capsule 75 mg PO Q6H PRN (Reason: migraine headache) Instructions: Acute Headache (ED) Stand Alone Forms: Portal Instructions Referrals: Lamont Blair MD [Primary Care Provider] - 1 week
[2023-03-25] MEDS: DIPHENHYDRAMINE HCL 50 MG/ML (1ML) VIAL 25 MG IM (15:54)
[2023-03-25] MEDS: KETOROLAC TROMETHAMINE 60 MG/2 ML VIAL IM (15:54)
[2023-03-25] MEDS: PROCHLORPERAZINE 10 MG/2 ML VIAL IM (15:55)
[2023-03-25] MEDS: ORPHENADRINE 60 MG/ 2 ML VIAL IM (15:56)
[2023-03-25] MEDS: BUTALB/ACETAMINOPHEN/CAFFEINE 50-325-40MG TABLET 1 TAB PO (16:39)
[2023-03-25 16:44] VITALS: BP 121/88; PULSE 94; RESP 18; O2SAT 99
== END 2023-03-25 16:46 | disposition home or self-care (01) ==
PROVIDERS: Emergency Provider Emergency Medicine; PCP Family Medicine
DX: R51.9 Headache, unspecified (principal); F31.9 Bipolar disorder, unspecified; G40.909 Epilepsy, unspecified, not intractable, without status epilepticus; K21.9 Gastro-esophageal reflux disease without esophagitis; J45.909 Unspecified asthma, uncomplicated; F41.9 Anxiety disorder, unspecified; G89.4 Chronic pain syndrome; I34.1 Nonrheumatic mitral (valve) prolapse; Z87.01 Personal history of pneumonia (recurrent); Z86.16 Personal history of COVID-19; Z87.442 Personal history of urinary calculi; Z90.710 Acquired absence of both cervix and uterus; Z79.899 Other long term (current) drug therapy; Z90.722 Acquired absence of ovaries, bilateral; Z90.79 Acquired absence of other genital organ(s); Z90.49 Acquired absence of other specified parts of digestive tract; Z98.891 History of uterine scar from previous surgery; Z98.890 Other specified postprocedural states
CPT/HCPCS: 99284; J0780; J1200; J1885; J2360

== ENCOUNTER 2023-04-27 15:37 | Emergency (ER) | payer OTHER, SELFPAY ==
[2023-04-27 15:40] VITALS: BP 118/86; PULSE 105; RESP 18; TEMP 36.6; O2SAT 98; BMI 47.2
--- NOTE | 2023-04-27 16:03 | ED.GENADUL1 ---
HPI - General Adult General Chief complaint: Headache Stated complaint: Headache Time Seen by Provider: 04/27/23 15:54 Source: patient Mode of arrival: walk-in Limitations: no limitations History of Present Illness HPI narrative: This patient is here complaining of a headache. She has intense nausea with a headache today. She has been a frequent visitor here for similar problems in the past. She actually does not participate in a study at the [facility]. Her last series of injections for headache was approximately a month ago. This is her first recurring headaches since that time. She has failed Botox therapies in the past. She says that usually there is a combination of medications in the ER here that usually are helpful. She has not been running a fever. There is nothing different or unusual about this headache. It was not abrupt in onset. She does not have severe neck pain. She has had plenty of CT imaging in the past. She does have allergies so we cannot use Reglan for her. She has not had a cough sore throat or influenza type symptoms. She has not had a fever at home. She has not been on any recent antibiotics. She does not have sinus dry and is her symptomatology. Related Data Home Medications Medication Instructions Recorded Confirmed baclofen 10 mg tablet 10 mg PO TID spasms 07/20/22 04/27/23 diazepam 10 mg tablet 10 mg PO BID 07/20/22 04/27/23 epinephrine 0.3 mg/0.3 mL 0.3 mg IM Q10M PRN anaphylaxis 07/20/22 04/27/23 injection, auto-injector estradiol 0.5 mg tablet 0.5 mg PO QAM 01/06/23 04/27/23 diphenhydramine HCl 25 mg capsule 75 mg PO Q6H PRN migraine headache 01/26/23 04/27/23 (Benadryl) ibuprofen 800 mg tablet 800 mg PO Q8H PRN pain 01/26/23 04/27/23 lamotrigine 200 mg tablet 200 mg PO BID 01/26/23 04/27/23 lithium carbonate 300 mg capsule 600 mg PO BID 01/26/23 04/27/23 orphenadrine citrate 100 mg 100 mg PO BID PRN migraine 01/26/23 04/27/23 tablet,extended release promethazine 25 mg tablet 12.5 mg PO Q6H PRN nausea and 01/26/23 04/27/23 vomiting albuterol sulfate 2.5 mg/3 mL 2.5 mg inhalation Q4H PRN 03/03/23 04/27/23 (0.083 %) solution for nebulization shortness of breath or wheezing ketorolac 10 mg tablet 10 mg PO Q6H PRN migraine headache 03/03/23 04/27/23 magnesium oxide 400 mg PO .qhs 03/03/23 04/27/23 trazodone 300 mg tablet 300 mg PO .qhs 03/03/23 04/27/23 erenumab-aooe 70 mg/mL mg subcut 04/27/23 subcutaneous auto-injector (Aimovig Autoinjector) lithium carbonate 300 mg tablet 300 mg PO Q12H 04/27/23 04/27/23 Previous Rx's Medication Instructions Recorded ondansetron 4 mg disintegrating 4 mg PO Q6H PRN nausea and 02/26/23 tablet vomiting #20 tabs budesonide-formoterol HFA 160 2 inh inhalation Q12H #10.2 grams 03/04/23 mcg-4.5 mcg/actuation aerosol inhaler (Symbicort) Allergies Allergy/AdvReac Type Severity Reaction Status Date / Time buspirone Allergy Hives Verified 03/03/23 09:09 carbamazepine Allergy Unknown Verified 03/03/23 09:09 levetiracetam [From Keppra] Allergy ITCHING Verified 03/03/23 09:09 azithromycin [From Zithromax] AdvReac Intermediate Hives Verified 03/03/23 09:09 bee venom protein (honey bee) AdvReac Intermediate Hives Verified 03/03/23 09:09 metoclopramide [From Reglan] AdvReac Intermediate panic Verified 03/03/23 09:09 adhesive tape AdvReac Mild Rash Verified 03/03/23 09:09 cephalexin [From Keflex] AdvReac Mild Hives Verified 03/03/23 09:09 dextromethorphan AdvReac Mild Unknown Verified 03/03/23 09:09 [From [place] DM] pyrilamine [From [place] DM] AdvReac Mild Unknown Verified 03/03/23 09:09 propranolol AdvReac Hives Verified 03/03/23 09:09 [facility] Medical History (Updated 04/27/23 @ 18:04 by Jesse Estrada MD) Chronic pain disorder ?G89.4 - Chronic pain syndrome (ICD-10) Conjunctivitis ?H10.9 - Unspecified conjunctivitis (ICD-10) Migraine ?G43.909 - Migraine, unspecified, not intractable, without status migrainosus (ICD-10) Viral upper respiratory tract infection with cough ?J06.9 - Acute upper respiratory infection, unspecified (ICD-10) Seizure disorder ?G40.909 - Epilepsy, unspecified, not intractable, without status epilepticus (ICD-10) Bipolar disorder ?F31.9 - Bipolar disorder, unspecified (ICD-10) Pelvic pain ?R10.2 - Pelvic and perineal pain (ICD-10) Headache ?R51.9 - Headache, unspecified (ICD-10) Bilateral occipital neuralgia ?M54.81 - Occipital neuralgia (ICD-10) Migraine ?G43.909 - Migraine, unspecified, not intractable, without status migrainosus (ICD-10) Post-op pain ?G89.18 - Other acute postprocedural pain (ICD-10) Combative behavior ?R46.89 - Other symptoms and signs involving appearance and behavior (ICD-10) Postoperative nausea and vomiting ?R11.2 - Nausea with vomiting, unspecified (ICD-10) ?Z98.890 - Other specified postprocedural states (ICD-10) Vaginal bleeding ?N93.9 - Abnormal uterine and vaginal bleeding, unspecified (ICD-10) Abscess of vagina ?N76.0 - Acute vaginitis (ICD-10) PCOS (polycystic ovarian syndrome) ?E28.2 - Polycystic ovarian syndrome (ICD-10) Mitral valve prolapse ?I34.1 - Nonrheumatic mitral (valve) prolapse (ICD-10) Vaginal delivery ?O80 - Encounter for full-term uncomplicated delivery (ICD-10) Nausea ?R11.0 - Nausea (ICD-10) GERD (gastroesophageal reflux disease) ?K21.9 - Gastro-esophageal reflux disease without esophagitis (ICD-10) Depression ?F32.A - Depression, unspecified (ICD-10) Blood in urine ?R31.9 - Hematuria, unspecified (ICD-10) Acne ?L70.9 - Acne, unspecified (ICD-10) Dyspareunia Brain mass ?G93.89 - Other specified disorders of brain (ICD-10) Pneumonia ?J18.9 - Pneumonia, unspecified organism (ICD-10) Kidney stones ?N20.0 - Calculus of kidney (ICD-10) COVID-19 ?U07.1 - COVID-19 (ICD-10) Bronchitis ?J40 - Bronchitis, not specified as acute or chronic (ICD-10) Asthma ?J45.909 - Unspecified asthma, uncomplicated (ICD-10) Stress incontinence ?N39.3 - Stress incontinence (female) (male) (ICD-10) Dysuria ?R30.0 - Dysuria (ICD-10) Seizure ?R56.9 - Unspecified convulsions (ICD-10) Neck pain ?M54.2 - Cervicalgia (ICD-10) Migraine ?G43.909 - Migraine, unspecified, not intractable, without status migrainosus (ICD-10) Low back pain ?M54.50 - Low back pain, unspecified (ICD-10) Head injury ?S09.90XA - Unspecified injury of head, initial encounter (ICD-10) Anxiety ?F41.9 - Anxiety disorder, unspecified (ICD-10) Surgical History (Updated 01/06/23 @ 12:50 by Rocio Schwartz NP) H/O laparoscopy (07/21/22) ?Z98.890 - Other specified postprocedural states (ICD-10) S/P RAVI-BSO ?Z90.710 - Acquired absence of both cervix and uterus (ICD-10) ?Z90.722 - Acquired absence of ovaries, bilateral (ICD-10) ?Z90.79 - Acquired absence of other genital organ(s) (ICD-10) Hx laparoscopic cholecystectomy ?Z90.49 - Acquired absence of other specified parts of digestive tract (ICD-10) H/O: ?Z98.891 - History of uterine scar from previous surgery (ICD-10) History of appendectomy ?Z90.49 - Acquired absence of other specified parts of digestive tract (ICD-10) Family History (Updated 07/20/22 @ 17:40 by Irlanda Weiss RN) Other Acid reflux Acute renal disease Afib Chromosomal disorder Delayed developmental milestones Diabetes Family history of hypertension High cholesterol Neuro-irritability due to autonomic dysfunction 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 She does not have nuchal rigidity or meningeal irritation and her cognition and mentation orientation are normal with a GCS of 15. Blood pressure is good. On HEENT the pupils are 5 mm and reactive bilaterally. There is no nystagmus. There is no visual field defect and her extraocular muscles are normal. There is no facial asymmetry. She has no meningeal irritation. Her hypopharynx is not erythematous her voice is normal there is no lesions in the oral cavity. There is no skin lesions on her facial area there is no facial droop. She has no respiratory distress. Constitutional Vital Signs, click to edit/add: Last Vital Signs Temp 97.8 F 04/27/23 15:40 Pulse 105 H 04/27/23 15:40 Resp 18 04/27/23 15:40 BP 118/86 04/27/23 15:40 Pulse Ox 98 04/27/23 15:40 Course Vital Signs Vital signs: Vital Signs Temperature 97.8 F 04/27/23 15:40 Pulse Rate 105 H 04/27/23 15:40 Respiratory Rate 18 04/27/23 15:40 Blood Pressure 118/86 04/27/23 15:40 Pulse Oximetry 98 04/27/23 15:40 Temperature 97.8 F 04/27/23 15:40 Pulse Rate 105 H 04/27/23 15:40 Respiratory Rate 18 04/27/23 15:40 Blood Pressure 118/86 04/27/23 15:40 Pulse Oximetry 98 04/27/23 15:40 Medical Decision Making MDM Narrative Medical decision making narrative: I approach this patient who has been here previous episodes for migraines with a multiple drug regimen without using any opioids. That was agreeable with her. She was given a combination of medications as well as IV hydration which I believe will be helpful because she has not been eating and drinking much. Fortunately after IV fluids and medication she is feeling substantially improved. No further treatment recommendations were made at this time. I do not believe she needs any imaging or LP at this time Discharge Plan Discharge Stand Alone Forms: Portal Instructions Chief Complaint: Headache Clinical Impression: Migraine, Migraine Patient Disposition: Home, Self-Care Time of Disposition Decision: 18:03 Prescriptions / Home Meds: No Action baclofen 10 mg tablet 10 mg PO TID diazepam 10 mg tablet 10 mg PO BID epinephrine 0.3 mg/0.3 mL auto-injector 0.3 mg IM Q10M PRN (Reason: anaphylaxis) Rx Instructions: for 2 doses ondansetron 4 mg tablet,disintegrating 4 mg PO Q6H PRN (Reason: nausea and vomiting) Qty: 20 0RF albuterol sulfate 2.5 mg /3 mL (0.083 %) solution for nebulization 2.5 mg inhalation Q4H PRN (Reason: shortness of breath or wheezing) trazodone 300 mg tablet 300 mg PO .qhs magnesium oxide 400 mg magnesium tablet 400 mg PO .qhs ketorolac 10 mg tablet 10 mg PO Q6H PRN (Reason: migraine headache) budesonide-formoterol [Symbicort] 160-4.5 mcg/actuation HFA aerosol inhaler 2 inh inhalation Q12H Qty: 10.2 0RF Aimovig Autoinjector 70 mg/mL auto-injector SUBCUT lithium carbonate 300 mg tablet 300 mg PO Q12H estradiol 0.5 mg tablet 0.5 mg PO QAM ibuprofen 800 mg tablet 800 mg PO Q8H PRN (Reason: pain) promethazine 25 mg tablet 12.5 mg PO Q6H PRN (Reason: nausea and vomiting) lithium carbonate 300 mg capsule 600 mg PO BID orphenadrine citrate 100 mg tablet extended release 100 mg PO BID PRN (Reason: migraine) lamotrigine 200 mg tablet 200 mg PO BID diphenhydramine HCl [Benadryl] 25 mg capsule 75 mg PO Q6H PRN (Reason: migraine headache) Additional Instructions: Rest and quiet the remainder of the evening. May take 2 Aleve or [id number] ibuprofen for the next 24 hours only Referrals: Lamont Blair MD [Primary Care Provider] - 1 week
[2023-04-27] MEDS: 0.9 % SODIUM CHLORIDE 1,000 ML 999 ML IV (16:23)
[2023-04-27] MEDS: DIPHENHYDRAMINE HCL 50 MG/ML (1ML) VIAL 12.5 MG IV ×2 (16:24→17:10)
[2023-04-27] MEDS: ONDANSETRON PF 4 MG/2 ML VIAL IV (16:24)
[2023-04-27] MEDS: KETOROLAC TROMETHAMINE 60 MG/2 ML VIAL IVP (16:25)
[2023-04-27] MEDS: ORPHENADRINE 60 MG/ 2 ML VIAL IV (16:26)
[2023-04-27 16:32] VITALS: BP 118/86; PULSE 83; RESP 18; O2SAT 99
[2023-04-27] MEDS: DEXAMETHASONE SOD PHOS 10 MG/ML VIAL IV (17:11)
== END 2023-04-27 18:15 | disposition home or self-care (01) ==
PROVIDERS: Emergency Provider Emergency Medicine Emergency Medical Services; PCP Family Medicine
DX: G43.909 Migraine, unspecified, not intractable, without status migrainosus (principal); G40.909 Epilepsy, unspecified, not intractable, without status epilepticus; F31.9 Bipolar disorder, unspecified; M54.81 Occipital neuralgia; I34.1 Nonrheumatic mitral (valve) prolapse; E28.2 Polycystic ovarian syndrome; K21.9 Gastro-esophageal reflux disease without esophagitis; Z86.16 Personal history of COVID-19; Z87.01 Personal history of pneumonia (recurrent); Z87.442 Personal history of urinary calculi; J45.909 Unspecified asthma, uncomplicated; N39.3 Stress incontinence (female) (male); F41.9 Anxiety disorder, unspecified; Z90.710 Acquired absence of both cervix and uterus; Z90.722 Acquired absence of ovaries, bilateral; Z90.79 Acquired absence of other genital organ(s); Z90.49 Acquired absence of other specified parts of digestive tract; Z79.899 Other long term (current) drug therapy
CPT/HCPCS: 96374; 96375; 96376; 99284; J1100

== ENCOUNTER 2023-05-12 12:30 | Observation (INO) | payer OTHER, SELFPAY ==
[2023-05-12] VITALS (7 sets, daily range): BP systolic 113–141; BP diastolic 64–91; PULSE 74–102; RESP 16–20; TEMP 36.8–37.6; O2SAT 93–99; BMI 47.1; BMI 47.9
[2023-05-12] MEDS: PROMETHAZINE HCL 12.5 MG in 0.9 % SODIUM CHLORIDE 50 ML 204 MG IV (13:05)
[2023-05-12] MEDS: 0.9 % SODIUM CHLORIDE 1,000 ML 999 ML IV (13:05)
[2023-05-12] MEDS: HYDROMORPHONE HCL 1 MG/ML CARTRIDGE IVP (13:06)
--- NOTE | 2023-05-12 13:27 | ED.GENADUL1 ---
HPI - General Adult General Chief complaint: Headache Stated complaint: HEADACHE Time Seen by Provider: 05/12/23 12:41 Source: patient Mode of arrival: walk-in History of Present Illness HPI narrative: Patient complains of a global headache that began 4 days ago. She has been in contact with her [facility] neurologist and had been started on Zomig. She says that she has been vomiting as well and the Zofran she has at home has not been helping. Therefore she has taken some doses of Zomig but also has vomited while trying to take the same medication. She also complained of puffiness and clear drainage to both eyes. She is concerned about potential infection. She does not wear contact lenses. Vision is not affected at this time. When she called the [facility] today to let them know that the medications are not helping, they told her to come to the emergency department for treatment and evaluation. She has chronic, recurrent headaches - Previously diagnosed with migraines - And said that this is typical of her previous episodes with the exception of the eye puffiness and drainage. She does not recall anything getting into the eye and does not work with any devices that might yield high velocity projectile Related Data Home Medications ?Medication ?Instructions ?Recorded ?Confirmed baclofen 10 mg tablet 10 mg PO TID spasms 07/20/22 04/27/23 diazepam 10 mg tablet 10 mg PO BID 07/20/22 04/27/23 epinephrine 0.3 mg/0.3 mL 0.3 mg IM Q10M PRN anaphylaxis 07/20/22 04/27/23 injection, auto-injector estradiol 0.5 mg tablet 0.5 mg PO QAM 01/06/23 04/27/23 diphenhydramine HCl 25 mg capsule 75 mg PO Q6H PRN migraine headache 01/26/23 04/27/23 (Benadryl) ibuprofen 800 mg tablet 800 mg PO Q8H PRN pain 01/26/23 04/27/23 lamotrigine 200 mg tablet 200 mg PO BID 01/26/23 04/27/23 lithium carbonate 300 mg capsule 600 mg PO BID 01/26/23 04/27/23 orphenadrine citrate 100 mg 100 mg PO BID PRN migraine 01/26/23 04/27/23 tablet,extended release promethazine 25 mg tablet 12.5 mg PO Q6H PRN nausea and 01/26/23 04/27/23 vomiting albuterol sulfate 2.5 mg/3 mL 2.5 mg inhalation Q4H PRN 03/03/23 04/27/23 (0.083 %) solution for nebulization shortness of breath or wheezing ketorolac 10 mg tablet 10 mg PO Q6H PRN migraine headache 03/03/23 04/27/23 magnesium oxide 400 mg PO .qhs 03/03/23 04/27/23 trazodone 300 mg tablet 300 mg PO .qhs 03/03/23 04/27/23 erenumab-aooe 70 mg/mL mg subcut 04/27/23 subcutaneous auto-injector (Aimovig Autoinjector) lithium carbonate 300 mg tablet 300 mg PO Q12H 04/27/23 04/27/23 Previous Rx's ?Medication ?Instructions ?Recorded ondansetron 4 mg disintegrating 4 mg PO Q6H PRN nausea and 02/26/23 tablet vomiting #20 tabs budesonide-formoterol HFA 160 2 inh inhalation Q12H #10.2 grams 03/04/23 mcg-4.5 mcg/actuation aerosol inhaler (Symbicort) tobramycin 0.3 %-dexamethasone 0.1 1 drp ophthalmic (eye) Q6H 7 days 05/12/23 % eye drops,suspension #5 mL Allergies Allergy/AdvReac Type Severity Reaction Status Date / Time buspirone Allergy Hives Verified 03/03/23 09:09 carbamazepine Allergy Unknown Verified 03/03/23 09:09 levetiracetam [From Keppra] Allergy ITCHING Verified 03/03/23 09:09 azithromycin [From Zithromax] AdvReac Intermediate Hives Verified 03/03/23 09:09 bee venom protein (honey bee) AdvReac Intermediate Hives Verified 03/03/23 09:09 metoclopramide [From Reglan] AdvReac Intermediate panic Verified 03/03/23 09:09 adhesive tape AdvReac Mild Rash Verified 03/03/23 09:09 cephalexin [From Keflex] AdvReac Mild Hives Verified 03/03/23 09:09 dextromethorphan AdvReac Mild Unknown Verified 03/03/23 09:09 [From [place] [facility]] pyrilamine [From [place] [facility]] AdvReac Mild Unknown Verified 03/03/23 09:09 propranolol AdvReac Hives Verified 03/03/23 09:09 [facility] Medical History (Updated 05/12/23 @ 13:30 by Manpreet Hensley) Chronic pain disorder ?G89.4 - Chronic pain syndrome (ICD-10) Conjunctivitis ?H10.9 - Unspecified conjunctivitis (ICD-10) Migraine ?G43.909 - Migraine, unspecified, not intractable, without status migrainosus (ICD-10) Viral upper respiratory tract infection with cough ?J06.9 - Acute upper respiratory infection, unspecified (ICD-10) Seizure disorder ?G40.909 - Epilepsy, unspecified, not intractable, without status epilepticus (ICD-10) Bipolar disorder ?F31.9 - Bipolar disorder, unspecified (ICD-10) Pelvic pain ?R10.2 - Pelvic and perineal pain (ICD-10) Headache ?R51.9 - Headache, unspecified (ICD-10) Bilateral occipital neuralgia ?M54.81 - Occipital neuralgia (ICD-10) Migraine ?G43.909 - Migraine, unspecified, not intractable, without status migrainosus (ICD-10) Post-op pain ?G89.18 - Other acute postprocedural pain (ICD-10) Combative behavior ?R46.89 - Other symptoms and signs involving appearance and behavior (ICD-10) Postoperative nausea and vomiting ?R11.2 - Nausea with vomiting, unspecified (ICD-10) ?Z98.890 - Other specified postprocedural states (ICD-10) Vaginal bleeding ?N93.9 - Abnormal uterine and vaginal bleeding, unspecified (ICD-10) Abscess of vagina ?N76.0 - Acute vaginitis (ICD-10) PCOS (polycystic ovarian syndrome) ?E28.2 - Polycystic ovarian syndrome (ICD-10) Mitral valve prolapse ?I34.1 - Nonrheumatic mitral (valve) prolapse (ICD-10) Vaginal delivery ?O80 - Encounter for full-term uncomplicated delivery (ICD-10) Nausea ?R11.0 - Nausea (ICD-10) GERD (gastroesophageal reflux disease) ?K21.9 - Gastro-esophageal reflux disease without esophagitis (ICD-10) Depression ?F32.A - Depression, unspecified (ICD-10) Blood in urine ?R31.9 - Hematuria, unspecified (ICD-10) Acne ?L70.9 - Acne, unspecified (ICD-10) Dyspareunia Brain mass ?G93.89 - Other specified disorders of brain (ICD-10) Pneumonia ?J18.9 - Pneumonia, unspecified organism (ICD-10) Kidney stones ?N20.0 - Calculus of kidney (ICD-10) COVID-19 ?U07.1 - COVID-19 (ICD-10) Bronchitis ?J40 - Bronchitis, not specified as acute or chronic (ICD-10) Asthma ?J45.909 - Unspecified asthma, uncomplicated (ICD-10) Stress incontinence ?N39.3 - Stress incontinence (female) (male) (ICD-10) Dysuria ?R30.0 - Dysuria (ICD-10) Seizure ?R56.9 - Unspecified convulsions (ICD-10) Neck pain ?M54.2 - Cervicalgia (ICD-10) Migraine ?G43.909 - Migraine, unspecified, not intractable, without status migrainosus (ICD-10) Low back pain ?M54.50 - Low back pain, unspecified (ICD-10) Head injury ?S09.90XA - Unspecified injury of head, initial encounter (ICD-10) Anxiety ?F41.9 - Anxiety disorder, unspecified (ICD-10) Surgical History (Updated 01/06/23 @ 12:50 by Rocio Schwartz NP) H/O laparoscopy (07/21/22) ?Z98.890 - Other specified postprocedural states (ICD-10) S/P RAVI-BSO ?Z90.710 - Acquired absence of both cervix and uterus (ICD-10) ?Z90.722 - Acquired absence of ovaries, bilateral (ICD-10) ?Z90.79 - Acquired absence of other genital organ(s) (ICD-10) Hx laparoscopic cholecystectomy ?Z90.49 - Acquired absence of other specified parts of digestive tract (ICD-10) H/O: ?Z98.891 - History of uterine scar from previous surgery (ICD-10) History of appendectomy ?Z90.49 - Acquired absence of other specified parts of digestive tract (ICD-10) Family History (Updated 07/20/22 @ 17:40 by Irlanda Weiss RN) Other Acid reflux Acute renal disease Afib Chromosomal disorder Delayed developmental milestones Diabetes Family history of hypertension High cholesterol Neuro-irritability due to autonomic dysfunction 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 afebrile General: Well-appearing and in no apparent distress. Skin: Warm, dry, no pallor noted. No rash. Head: Normocephalic, atraumatic. Neck: Supple, non-tender. No meningismus Eye: Pupils are equal, round and EOMI. No scleral icterus. She has bilateral conjunctivitis and blepharitis with clear tearing but no purulent drainage. Ears, Nose, Mouth, and Throat: Oral mucosa is moist Cardiovascular: Regular Rate and Rhythm without murmur, gallop or rub. Respiratory: No accessory muscle use or respiratory distress. Lungs are clear to auscultation, no wheezing, rales or rhonchi GI: Abdomen is soft, non-distended. Normal bowel sounds. No tenderness to palpation. No rebound, guarding, or rigidity noted. Neurological: A&O x4. No cranial nerve dysfunction observed. No truncal ataxia. Moves all extremities. Sensation intact. Psychiatric: Cooperative and interactive. Normal mood and affect. Constitutional Vital Signs, click to edit/add: Last Vital Signs Temp 98.3 F 05/12/23 15:31 Pulse 94 H 05/12/23 15:31 Resp 16 05/12/23 15:31 BP 113/80 05/12/23 15:31 Pulse Ox 98 05/12/23 15:31 O2 Del Method Room Air 05/12/23 12:36 Course Vital Signs Vital signs: Vital Signs Temperature 99.7 F 05/12/23 12:36 Pulse Rate 77 05/12/23 12:36 Respiratory Rate 18 05/12/23 12:36 Blood Pressure 119/73 05/12/23 12:36 Pulse Oximetry 99 05/12/23 12:36 Oxygen Delivery Method Room Air 05/12/23 12:36 Temperature 98.3 F 05/12/23 15:31 Pulse Rate 94 H 05/12/23 15:31 Respiratory Rate 16 05/12/23 15:31 Blood Pressure 113/80 05/12/23 15:31 Pulse Oximetry 98 05/12/23 15:31 Oxygen Delivery Method Room Air 05/12/23 12:36 Medical Decision Making MDM Narrative Medical decision making narrative: Peripheral IV established and she received medicine for her pain and nausea, in addition to a liter of NS IVF. Additionally I am going to prescribe TobraDex eyedrops for her to take at home once she is discharged. On recheck at 1405, the patient's nausea is unchanged. her headache decreased from 10/10 to 7/10. She was ordered to receive IV Zofan, IV Magnesium and IV Solumedrol. Her pain did not improve further. Patient's PCP contacted and after discussing the patient's case, Dr Blair agreed to admit the patient to [facility] for intractable migraine cephalgia. Patient happy to be admitted. Discharge Plan Discharge Stand Alone Forms: Portal Instructions Chief Complaint: Headache Clinical Impression: Migraine, Acute conjunctivitis, bilateral Patient Disposition: Admitted as Observation Time of Disposition Decision: 15:10 Prescriptions / Home Meds: New tobramycin-dexamethasone 0.3-0.1 % drops,suspension 1 drp ophthalmic (eye) Q6H 7 Days Qty: 5 0RF Rx Instructions: apply to both eyes No Action baclofen 10 mg tablet 10 mg PO TID diazepam 10 mg tablet 10 mg PO BID epinephrine 0.3 mg/0.3 mL auto-injector 0.3 mg IM Q10M PRN (Reason: anaphylaxis) Rx Instructions: for 2 doses ondansetron 4 mg tablet,disintegrating 4 mg PO Q6H PRN (Reason: nausea and vomiting) Qty: 20 0RF albuterol sulfate 2.5 mg /3 mL (0.083 %) solution for nebulization 2.5 mg inhalation Q4H PRN (Reason: shortness of breath or wheezing) trazodone 300 mg tablet 300 mg PO .qhs magnesium oxide 400 mg magnesium tablet 400 mg PO .qhs ketorolac 10 mg tablet 10 mg PO Q6H PRN (Reason: migraine headache) budesonide-formoterol [Symbicort] 160-4.5 mcg/actuation HFA aerosol inhaler 2 inh inhalation Q12H Qty: 10.2 0RF Aimovig Autoinjector 70 mg/mL auto-injector SUBCUT lithium carbonate 300 mg tablet 300 mg PO Q12H estradiol 0.5 mg tablet 0.5 mg PO QAM ibuprofen 800 mg tablet 800 mg PO Q8H PRN (Reason: pain) promethazine 25 mg tablet 12.5 mg PO Q6H PRN (Reason: nausea and vomiting) lithium carbonate 300 mg capsule 600 mg PO BID orphenadrine citrate 100 mg tablet extended release 100 mg PO BID PRN (Reason: migraine) lamotrigine 200 mg tablet 200 mg PO BID diphenhydramine HCl [Benadryl] 25 mg capsule 75 mg PO Q6H PRN (Reason: migraine headache) Print Language: Swedish Instructions: Migraine Headache (ED), Conjunctivitis (ED) Referrals: Lamont Blair MD [Primary Care Provider] - 1 week
[2023-05-12] MEDS: METHYLPREDNISOLONE SOD SUCC PF 125 MG/2 ML VIAL IVP (14:32)
[2023-05-12] MEDS: ONDANSETRON PF 4 MG/2 ML VIAL IV ×2 (14:32→22:00)
[2023-05-12] MEDS: MAGNESIUM SULFATE/D5W 1 GM/100 ML PIGGYBACK IV (14:33)
[2023-05-12] MEDS: DIPHENHYDRAMINE HCL 50 MG/ML (1ML) VIAL 25 MG IV (15:42)
--- OUTSIDE RECORDS SUMMARY | 2023-05-12 16:21 | XMS_ITS | CCD ---
Author Organization [facility] Care Team Providers Care Psychiatric Secretary Name Role Phone Maria Del Rosario Hahn (Historical) Primary Care Provide r Unavailable Randells AIRPLANE ELECTRICAL REPAIRER - LAND PLANNER, Angélica Santiago Primary Care Provider SANDHYA ANGÉLICA Santiago Primary Care Unavailable VIELKA CHING Attending Unavailable Kuns AIRPLANE ELECTRICAL REPAIRER - LAND PLANNER, Angélica Santiago Primary Care Provider LUCILA MOTA Attending Unavailable PAYLYNDSEY Referring Unavailable ANGÉLICA ARTHUR Primary Care Unavailable LUCILA MOTA Admitting Unavailable [...] ., DR GUTIERREZ Attending Unavailable REQUEST, DR ABDALLA LISTED Primary Care Unavaila SUKHDEEP Centeno Attending Unavailable SUKHDEEP DOCKERY Admitting Unavailable KUNKrupa, DR ANGÉLICA Santiago Primary Care Unavailable GRECHNY ., MARY WHITNEY Consulting Unavaildeshaun LAURENT, JASS Consulting Unavailable SUKHDEEP DOCKERY Attending Unavailable KUNS, DR ANGÉLICA Santiago Primary Care Unavailable SUKHDEEP DOCKERY Admitting Unavailable HAY ., DR HARMAN Consulting Unavailable SUKHDEEP DOCKERY Consulting Unavailable NABILA TONY Consulting Unavailable FAWWAD, LEW H Admitting Unavailable FAWWAD, LEW H Attending Unavailable ZISYDNIE, DR LOPEZ Santiago Consulting Unavailable REQUEST, DR NONE LISTED Primary Care Unavaila ble PAY ., DR SOLORIO Consulting Unavailable SAY, MANJINDER Consulting Unavailable FAWWAD, LEW H Consulting Unavailable SAY, MANJINDER Admitting Unavailable SAY, MANJINDER Attending Unavailable SAY, MANJINDER Consulting Unavailable KUNKrupa, DR ANGÉLICA Santiago Primary Care Unavailable SAY, MANJINDER Attending Unavailable SAY, MANJINDER Consulting Unavailable REQUEST, DR NONE LISTED Primary Care Unavaila ble SAY, MANJINDER Admitting Unavailable PATRICIA WALSH Consulting Unavailable [facility] [place]OMEZ Primary Care Unavailable HAY ., DR HARMAN Attending Unavailable HAY ., DR HARMAN Admitting Unavailable NEWSTEWART, NICHOLAS Consulting Unavailable UNLU, SINDY Consulting Unavailable LEONARDO ., DR GUTIERREZ Admitting Unavailable LEONARDO ., DR GUTIERREZ Consulting Unavailable [facility] Primary Care Unavailable LEONARDO ., DR GUTIERREZ Attending Unavailable KUNS, DR ANGÉLICA Santiago Primary Care Unavailable LEONARDO ., DR GUTIERREZ Admitting Unavailable LEONARDO ., DR GUTIERREZ Attending Unavailable LEONARDO ., DR GUTIERREZ Consulting Unavailable LEONARDO ., DR GUTIERREZ Admitting Unavailable LEONARDO ., DR GUTIERREZ Attending Unavailable NADERER, DR SPENSER Garcia Primary Care Unavailable [facility] Primary Care Unavailable HAY ., DR HARMAN Consulting Unavailable HAY ., DR HARMAN Admitting Unavailable HAY ., DR HARMAN Attending Unavailable KONNICOLE KING Consulting Unavailable KUNS, DR ANGÉLICA Santiago Primary Care Unavailable MARKER ., DR ONEAL Attending Unavailable MARKER ., DR ONEAL Consulting Unavailable MARKER ., DR ONEAL Admitting Unavailable SCHNEBLE, ROBIN Consulting Unavailable SAY, MANJINDER Attending Unavailable SAY, MANJINDER Consulting Unavailable SAY, MANJINDER Admitting Unavailable KUNKrupa, DR ANGÉLICA Santiago Primary Care Unavailable KUNKrupa, DR ANGÉLICA Santiago Referring Unavailable LEONARDO ., DR GUTIERREZ Admitting Unavailable LEONARDO ., DR GUTIERREZ Attending Unavailable LEONARDO ., DR GUTIERREZ Consulting Unavailable REQUEST, DR RM LISTED Primary Care Unavaila ble AGUBOSIM, BARON Consulting Unavailable LEONARDO ., DR GUTIERREZ Procedure Practitioner Unavail able SATYA, KRYSTIN Consulting Unavailable LUCIE, KLEBER Consulting Unavailable DORKOSKIE, SHIRLENE Consulting Unavailable ALECIA ., DENNIS Admitting Unavailable ALECIA ., DENNIS Attending Unavailable MISC, DR GOMEZ Primary Care Unavailable HAY ., DR HARMAN Consulting Unavailable RIZZO, ANKUR Consulting Unavailable ALECIA ., DENNIS Consulting Unavailable KUNS, DR ANGLÉICA Santiago Primary Care Unavailable LEONARDO ., DR GUTIERREZ Admitting Unavailable LEONARDO ., DR GUTIERREZ Attending Unavailable COELHO, MARIPOSA Consulting Unavailable LESLY, BLUE Primary Care Unavailable HAY ., DR HARMAN Attending Unavailable HAY ., DR HARMAN Consulting Unavailable HAY ., DR HARMAN Admitting Unavailable AHDOOT, NELI Consulting Unavailable LEONARDOHARRISY Attending Unavailable LEONARDO, ZAY Attending Unavailable NADERERSPENSER Attending Unavailable LEONARDO, ZAY Attending Unavailable LEONARDOZAY Attending Unavailable BIDDLECOM, SUZAN Referring Unavailable BIDDLECOM, SUZAN Attending Unavailable BIDDLECOM, SUZAN Referring Unavailable BIDDLECOM, SUZAN Attending Unavailable BIDDLECOM, SUZAN Referring Unavailable HOY, MARIA DEL ROSARIO M Referring Unavailable GREEN, KOLI Attending Unavailable GREEN, KOLI Attending Unavailable GREEN, KOLI Referring Unavailable BIDDLECOM, SUZAN Attending Unavailable JESSE WHARTON Attending Unavailable GREEN, KOLI Attending Unavailable HOY, MARIA DEL ROSARIO M Referring Unavailable HOY, MARIA DEL ROSARIO M Referring Unavailable ОЛЬГА AGUILAR Attending Unavailable GREEN, KOLI Attending Unavailable BIDDLECOM, SUZAN Attending Unavailable GREEN, KOLI Attending Unavailable Haider, Ramsey Attending Unavailab le Haider, Ramsey Admitting Unavailab le NON STAFF Primary Care Unavailable Allergies Allergy Classification Reported Allergen(s) Allergy Type Date of Onset Reaction(s) Facility (20 sources) Azithromycin; Translations: [AZITHROMYCIN] Drug Allergy 1 Hives, Other: See Comments [facility] (2 sources) carBAMazepine Drug Allergy 1 Other (See Comments) [facility] (20 sources) Cephalexin; Translations: [CEPHALEXIN] Drug Allergy 1 Hives, Rash [facility] (20 sources) Metoclopramide; Translations: [METOCLOPRAMIDE] Drug Allergy 1 Hives, Intolerance [facility] (2 sources) Propranolol Drug Allergy 1 Hives, Other (See Comments) [facility] (20 sources) Adhesive Tape-Silicones; Translations: [ADHESIVE TAPE-SILICONES] Drug Allergy 2 Rash [facility] (20 sources) Dextromethorphan / Pyrilamine; Translations: [PYRILAMINE-DEXTROME THORPHAN] Drug Allergy 2 [facility] Work Phone: (20 sources) vortioxetine; Translations: [VORTIOXETINE] Drug Allergy 2 [facility] Work Phone: (20 sources) Dihydroergotamine; Translations: [DIHYDROERGOTAMINE] Drug Allergy 3 Intolerance [facility] (1 source) Azithromycin Drug Allergy [facility] (1 source) bee venom Drug allergy (disorder) [facility] (1 source) Cephalexin Drug Allergy [facility] (1 source) Desonide Drug Allergy [facility] (1 source) Iothalamate Drug Allergy [facility] (1 source) Propranolol Drug Allergy 1 [facility] (1 source) Junction DM Drug allergy (disorder) 2 [facility] (13 sources) levETIRAcetam; Translations: [LEVETIRACETAM] Drug Allergy 3 Itching [facility] Work Phone: (2 sources) Valproate; Translations: [DIVALPROEX] Drug Allergy 4 Hives [facility] Work Phone: Medications Current Medications Medication [...] Sig (Original) baclofen 10 mg oral tablet (15 sources) gamma-Aminobutyric Acid-ergic Agonist Start: 2 baclofen (LIORESAL) 10 mg tablet Comment on above: Take 10 mg by mouth three times a day as needed. onabotulinumtoxina 200 unt injection (14 sources) Acetylcholine Release Inhibitor Start: 3 onabotulinum [...] 1245, Until Discontinued Indication of Use: Prophylaxis-DVT/PE 1 ml erenumab-aooe 70 mg/ml auto-injector (7 sources) Start: 03-23-2023 inject 1 mL by subcutaneous injection every month erenumab-aooe (AIMOVIG AUTOINJECTOR) 70 mg/mL auto-injector Inject 1 mL subcutaneously once every month. Do not shake. 1 Each 03/23/2023 Active Comment on above: Inject 1 mL subcutan eously once every month. Do not shake. FLUoxetine 20 mg oral capsule (2 sources) [...] shake. ketorolac tromethamine 10 mg oral tablet (20 sources) Nonsteroidal Anti-inflammatory Drug, Cyclooxygenase Inhibitor Start: take 1 tablet by mouth every six hours as needed keTORolac (TORADOL) 10 mg tablet Take 1 tablet by mouth every 6 hours as needed (severe migraine). 20 tablet 2 03/16/2023 Active Start: 05-08-2022 End: 12-09-2022 take 1 tablet [...] needed lithium carbonate 300 mg oral tablet (20 sources) Start: 06-13-2022 lithium carbonate 300 mg tablet LORazepam 2 mg oral tablet (2 sources) Benzodiazepine End: 10-20-2021 take 1 tablet by mouth twice daily LORazepam (ATIVAN) 2 MG tablet Take 2 mg by mouth 2 times daily. 0 10/20/2021 Discontinued (Stop Taking at Discharge) lumateperone (CAPLYTA) 10.5 mg capsule (5 sources) take 1 capsule by mouth once daily lumateperone (CAPLYTA) 10.5 mg capsule Take 10.5 mg by mouth once daily. 0 Active Comment on above: Take 10.5 mg by mout h once daily. magnesium oxide 400 mg oral capsule (20 sources) magnesium oxide 400 mg magnesium cap [...] citrate 100 mg extended release oral tablet (9 sources) Muscle Relaxant Start: 03-17-2023 take 1 tablet by mouth every twelve hours as needed orphenadrine ER (NORFLEX) 100 mg tablet Take 1 tablet by mouth two times a day as needed. 30 tablet 5 03/17/2023 Active Start: 12-12-2022 take 1 tablet by sami th every twelve hours as needed orphenadrine ER (NORFLEX) 100 mg tablet Take 1 tablet by mouth two times a day as needed. 30 tablet 5 12/12/2022 Active Comment on above: Take 1 tablet by sami th two times a day as needed. phentermine hydrochloride 37.5 mg oral tablet (7 sources) Sympathomimetic Amine Anorectic Start: take 1 tablet by mouth once daily before mealtime Phentermine HCl 37.5 mg tablet take 1 tablet by mouth every morning before meals 0 03/21/2023 Active Comment on above: take 1 tablet by sami th every morning before meals polyethylene glycol 3350 [id number] mg powder for oral solution (1 source) Osmotic Laxative Start: 022 17 g, Oral, DAILY PRN, Starting on Mon10/19/21 at 1226, Until Discontinued, Constipation First line therapy for constipation promethazine hydrochloride 12.5 mg oral tablet (20 sources) Phenothiazine Start: 024 take 1 tablet by mouth every six hours as needed promethazine (PHENERGAN) 12.5 mg tablet Take 1 tablet by mouth every 6 hours as needed. 90 tablet 5 03/17/2023 Active Start: 06-22-2022 End: 08-31-2022 take 1 tablet [...] chloride 9 mg/ml injection (6 sources) Start: take 1 dose intravenously twice daily 5-40 mL, IntraVENous, EVERY 12 HOURS SCHEDULED (2 times per day), First dose on Mon10/19/21 at 2100, Until Discontinued For Line Patency: Peripheral IV = 5 mL; Midline or Central Line = 10 mL/lumen. & nbsp;If following IV push medication, administer flush at same rate as the IV push. Flush volume is determined by type of infusion therapy being given. Fo r non-viscous solutions use: Peripheral IV = 5 [...] . traZODone hydrochloride 100 mg oral tablet (20 sources) Serotonin Reuptake Inhibitor Start: 06-13-2022 traZODone [...] hr vilazodone hydrochloride 20 mg oral tablet (20 sources) Start: 04-20-2022 End: 04-12-2023 vilazodone (VIIBRYD) 20 mg tablet ZOLMitriptan 5 mg/actuat nasal spray (20 sources) Serotonin-1b and Serotonin-1d Receptor Agonist Start: 03-17-2023 ZOLMitriptan (ZOMIG) 5 mg nasal spray Use 1 [place] in the nose as needed at onset of migraine headache. If symptoms persist or return, may repeat dose in other nostril after 2 hours. Maximum of 2 sprays per 24 hours 10 Each 2 03/17/2023 Active Start: 06-24-2022 ZOLMitriptan ( ZOMIG) 5 mg nasal spray Use 1 [place] in the nose as needed at onset of migraine headache. If symptoms persist or return, may repeat dose in other nostril after 2 hours. Maximum of 2 sprays per 24 hours 10 Each 2 06/24/2022 Active Start: 06-24-2022 take 1 spray(s) nasa l route every twenty-four hours as needed ZOLMitriptan (ZOMIG) 5 mg nasal spray Use 1 [place] in the nose as needed. SPRAY IN 1 NOSTRIL AT ONSET OF MIGRAINE HEADACHE. If symptoms persist or return, may repeat dose after 2 hours. Maximum: 5 mg/dose; 10 mg per 24 hours 10 Each 2 06/24/2022 Active Comment on above: Use 1 [place] in the n ose as needed. SPRAY IN 1 NOSTRIL AT ONSET OF MIGRAINE HEADACHE. If symptoms persist or return, may repeat dose after 2 hours. Maximum: 5 mg/dose; 10 mg per 24 hours Use 1 [place] in the n ose as needed at [...] 08-14-2021 Episodic Other aftercare (1 source) Other snf (current) drug therapy; Translations: [OTH BUFFER OPERATOR CURRENT DRUG THERAPY] Onset: 06-22-2022 Episodic Other [...] Test Name Value Interpretation Reference Range Facility OVon 04-14-2023 CNOV Office Visit ([facility]2) ---- CONI NICHOLSON ([id number]) 1995 F Date Time Provider Department 04/14/23 8:30 AM SUZAN DRIVER [facility] During your visit today, we recorded the following information about you: Suzan Driver APRN.LAND PLANNER 04/14/2023 10:49 AM Signed [facility] ANDRZEJ Note Primary Problem List: ACTIVE PROBLEM LIST Seizure-Like Activity (Hcc) Psychogenic Nonepileptic Seizure Intractable Chronic Migraine Without Aura and With Status Migrainosus Chronic Migraine Without Aura, With Intractable Migraine, So Stated, With Status Migrainosus Subjective: Coni Nicholson is a 27 year old year old female, with a history of asthma, anxiety, depression, PCOS, occipital neuralgia, psychogenic nonepileptic seizures, and migraine following up today for day 3 of infusions. 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 Current Preventative: recently prescribed aimovig Current Abortive: zomig NS, norflex, phenergan, toradol, baclofen ALLERGIES Allergen Reactions Dihydroergotamine Intolerance Chest tightness, numbness and tingling in bilateral extremities, increased anxiety Adhesive Tape-Silic* Rash Azithromycin Other: See Comments Keflex [Cephalexin] Rash Keppra [Levetiracet* Itching Pyrilamine-Dextrome * Hives Reglan [Metoclopram* Intolerance Vortioxetine Hives Current Medications: lumateperone (CAPLYTA) 10.5 mg capsuleTake 10.5 mg by mouth once daily.Disp: Rfl: baclofen 10 mg tabletTake 10 mg by mouth three times a day as needed.Disp: Rfl: Phentermine HCl 37.5 mg tablettake 1 tablet by mouth every morning before mealsDisp: Rfl: (Patient not taking: Reported on 04/12/2023) erenumab-aooe (AIMOVIG AUTOINJECTOR) 70 mg/mL auto-injectorInject 1 mL subcutaneously once every month. Do not shake.Disp: 1 EachRfl: 11 ZOLMitriptan (ZOMIG) 5 mg nasal sprayUse 1 [place] in the nose as needed at onset [...] Rfl: traZODone (DESYREL) 100 mg tabletDisp: Rfl: lamoTRIgine (LAMICTAL) 150 mg tabletDisp: Rfl: diazePAM (VALIUM) 10 mg tabletDisp: Rfl: Review of Systems: Review of system : unchanged from the previous visit (sleep patterns, mood, energy, appetite, stress, exercising). Sleep: Insomnia Mood: normal and irritable Stress: High Objective: VS: See RN note. General: well appearing, in no acute distress, alert Neurological: Pain Behaviors: squinting Musculoskeletal: No gross joint deformities. Mental Status: Alert and oriented to person, place and time. Affect is normal and appropriate. Speech is spontaneous and fluent without dysarthria, normal in rate, volume and articulation, and clear, coherent, and relevant. Short and superintendent container terminal memory, cognition and general fund of knowledge are good. Attention span and concentration are good. Cranial Nerves: VII-face is symmetric without evidence of weakness. VIII-hearing intact. Assessment: 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 with status migrainosus (primary encounter diagnosis) Pt reports zofran not very effective, but she does respond well to compazine. Compazine added to replace zofran for 2nd line antiemetic. Plan: Coni Nicholson is a 27 year old year old female, following up today for day 3 of infusions. Response to infusions: pain and nausea are improving Follow up/ discharge plan: f/u in 3 months Start aimovig this Level of service: Est level 4 (30-39 min). Time spent 30 min on the day of service, which included preparing to see the patient, udub-br-ifgi patient care, completing clinical documentation, obtaining and/or reviewing separately obtained history, performing a medically appropriate examination, counseling and educating the patient/family/patient care technician, and ordering medications, tests, or procedures. Suzan Driver APRN.[facility] Headache Section [facility] Suzan Driver APRN.CNP 04/14/2023 10:49 AM Signed Follow up/ discharge plan: f/u in 3 months Start aimovig this Aimovig Information Aimovig is a CGRP monoclonal antibody (MAB). CGRP is a substance in the brain that plays a chong role in causing migraine. Aimovig was specifically developed t (more content not included)... Normal [facility] CNPNon 04-13-2023 [facility] Telephone ([facility]2) ---- CONI NICHOLSON ([id number]) 1995 F Date Time Provider Department 04/13/23 LOGAN BARTH [facility] During your visit today, we recorded the following information about you: Johana Cancino RN 04/13/2023 9:30 AM Signed Patient is currently receiving infusions for headache. She is interested in learning about reboot program. Please schedule for evaluation. PRATIBHA Bliss Kelly 04/17/2023 12:44 PM Signed Patient is schedule.d Allergies As of Date: 04/13/2023 Noted Allergy Reaction DIHYDROERGOTAMINE 07/27/2022 5 - Intolerance Comments: Chest tightness, numbness and tingling in bilateral extremities, increased anxiety ADHESIVE TAPE-SILICONES 12/03/2021 2 - Rash AZITHROMYCIN 12/03/2021 14 - Other: See Comments KEFLEX (CEPHALEXIN) 12/03/2021 2 - Rash KEPPRA (LEVETIRACETAM) 11/11/2022 9 - Itching PYRILAMINE-DEXTROME THORPHAN 01/07/2022 4 - Hives REGLAN (METOCLOPRAMIDE) 12/03/2021 5 - Intolerance VORTIOXETINE 08/06/2021 4 - Hives Date Reviewed: 04/13/2023 Reviewed by: Johana Cancino RN - Fully Assessed Reason for Visit: Appointment [[id number]] Cmt: Patient currently receiving infusions for headache. She is interested in learning about reboot program. Please schedule patient for evaluation if appropriate to proceed. Prescriptions as of 04/17/2023 - lumateperone (CAPLYTA) 10.5 mg capsule Take 10.5 mg by mouth once daily. - baclofen 10 mg tablet Take 10 mg by mouth three times a day as needed. - Phentermine HCl 37.5 mg tablet take 1 tablet by mouth every morning before meals - erenumab-aooe (AIMOVIG AUTOINJECTOR) 70 mg/mL auto-injector Inject 1 mL subcutaneously once every month. Do not shake. - ZOLMitriptan (ZOMIG) 5 mg nasal spray Use 1 [place] in the nose as needed at onset [...] - traZODone (DESYREL) 100 mg tablet - lamoTRIgine (LAMICTAL) 150 mg tablet - diazePAM (VALIUM) 10 mg tablet Facility-Administer ed Medications as of 04/17/2023 - onabotulinum toxin type A 200 Units injection (BOTOX) Problem List As Of Date 04/13/2023 Noted Resolved Seizure-like activity (HCC) [R56.9] 04/01/2022 Psychogenic nonepileptic seizure [F44.5] 10/20/2021 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 w*06/24/2022 Chronic migraine without aura, with intractable* 024 Encounter Status:Closed by JOHANA CANCINO on 04/13/23 [facility] CNOVon 04-12-2023 CNOV Office Visit (WAMNS2) ---- CONI NICHOLSON ([id number]) 1995 Date Time Provider Department 04/12/23 1:30 PM SUZAN DRIVER [facility] During your visit today, we recorded the following information about you: Suzan Driver APRN.LAND PLANNER 04/12/2023 11:52 AM Signed General Headache Education and Headache Prevention Strategies: 1. Maintain a headache diary; learn to identify and avoid triggers. Common triggers include: Emotional triggers: Emotional/Upset family or friends Emotional/Upset occupation Business reversal/success Anticipation anxiety Crisis-serious Post-crisis periodNew job/position Physical triggers: Vacation Day Weekend Strenuous Exercise High Altitude Location New Move Day Physical Illness Oversleep/Not enough sleep Weather changes Light: Photophobia or light sesnitivity treatment involves a balance between desensitization and reduction in overly strong input. Use dark polarized glasses outside, but not inside. Avoid bright or fluorescent light, but do not dim environment to the point that going into a normally lit room hurts. Consider FL-41 tint lenses, which reduce the most irritating wavelengths without blocking too much light. These can be obtained at [employer] or [employer]: see list below. 2. Limit use of acute treatments (uszj-bjt-kdfnvra medications, triptans, etc.) to no more than 2 days per week or 10 days per month to prevent medication overuse headache (rebound headache). 3. Follow a regular schedule (including weekends and holidays): Don't skip meals. Eat a balanced diet. 8 hours of sleep nightly. Minimize stress. Exercise 30 minutes per day. Walking is great exercise. Being overweight is associated with a 5 times increased risk of chronic migraine. Keep well hydrated and drink 6-8 glasses of water per day. Limit caffeine to 200 mg per day. 4. Initiate non-pharmacologic measures at the earliest onset of your headache. Rest and quiet environment. Relax and reduce stress. Geozknf5Naftc is a free andrzej that can instruct you on some simple relaxtion and breathing techniques. Http://[employer] is a free website that provides teaching videos on relaxation. Also, there are many apps that can be downloaded for ?mindful? relaxation. An andrzej called YOGA NIDRA will help walk you through mindfulness. Cold compresses. 5. Don't wait!! Take the maximum allowable dosage of prescribed medication at the first sign of migraine. 6. Compliance: Take prescribed medication regularly as directed and at the first sign of a migraine. 7. Communicate: Call your physician when problems arise, especially if your headaches change, increase in frequency/severity, or become associated with neurological symptoms (weakness, numbness, slurred speech, etc.). 8. Headache/pain management therapies: Consider various complementary methods, including meditation, behavioral therapy, psychological counselling, biofeedback, massage therapy, acupuncture, dry needling, and other modalities. Such measures may reduce the need for medications. Counseling for pain management, where patients learn to function and ignore/minimize their pain, seems to work very well. 9. Recommend changing family's attention and focus away from patient's headaches. Instead, emphasize daily activities. If first question of day is 'How are your headaches/Do you have a headache today?', then patient will constantly think about headaches, thus making them worse. Goal is to re-direct attention away from headaches, toward daily activities and other distractions. 10. Helpful Websites: www.AmericanHeadach eSociety.org www.migrainetrust.o rg www.headaches.org www.migraine.org.uk www.achenet.org 11. HEADACHE EXPECTATIONS: There are many types of headaches, and only a rare few in which complete relief can be expected. In general, there is no cure for headache, especially migraine based headaches. There is nothing available that completely prevents headaches from occurring, breaking through, or having periodic flare-ups and fluctuations. Regardless of what you are using on a daily basis for prevention, episodic headaches should still be expected, and periods where frequency may escalate and fluctuate are unavoidable. There is no quick fix for most headaches. Furthermore, the longer you have had high frequency headaches (such as chronic daily headache), the longer it will likely take to expect any improvement. In fact, some people will never improve, regardless of how many medications or other treatments we try. Our treatment strategy is to evaluate for possible causes of your headache, although testing is usually always normal, even in cases of daily continuous headaches for years. Most types of headache such as migraine are electrical brain disorders (similar to how epilepsy i (more content not included)... Normal [facility] 03-27-2023 CNPN Telephone (MNOPRX) ---- CONI NICHOLSON ([id number]) 1995 F Date Time Provider Department 03/27/23 ANGELY COTTON MNOPRX During your visit today, we recorded the following information about you: Angely Cotton RN 03/27/2023 1:05 PM Signed [facility] received prescription(s) for Aimovig 70MG/ML auto-injectors . Benefits investigation was conducted, indicating that a prior authorization is required. PA was initiated and pending review through [employer]. All pertinent clinical information was submitted to insurance. [facility] Chong: [id number] Ordering Provider: Logan Barth APRN.Angely Schaefer RN [facility] P: , F: Angely Cotton RN 04/03/2023 12:43 PM Signed Ambulatory Pharmacy Prior Authorization Note Provider Intervention Required?: No- Pharmacy completed on your behalf. Rx Plan: Medicaid MCO ([facility]) Drug: Aimovig 70MG/ML auto-injectors Cover My Meds Chong: [id number] Determination: Approved Prior Authorization/Case #: n/a Prior Authorization Expiration: 09/22/23 Time to PA Submission in CMM: 15 [...] refills. Prescriptions will now be processed through [facility] for determination of next steps. For questions relating to this submission, please contact [facility] at [phone] Allergies As of Date: 03/27/2023 Noted Allergy Reaction DIHYDROERGOTAMINE 07/27/2022 5 - Intolerance Comments: Chest tightness, numbness and tingling in bilateral extremities, increased anxiety ADHESIVE TAPE-SILICONES 12/03/2021 2 - Rash AZITHROMYCIN 12/03/2021 14 - Other: See Comments DEPAKOTE (DIVALPROEX) 03/22/2023 4 - Hives KEFLEX (CEPHALEXIN) 12/03/2021 2 - Rash KEPPRA (LEVETIRACETAM) 11/11/2022 9 - Itching PYRILAMINE-DEXTROME THORPHAN 01/07/2022 4 - Hives REGLAN (METOCLOPRAMIDE) 12/03/2021 5 - Intolerance VORTIOXETINE 08/06/2021 4 - Hives Date Reviewed: 03/23/2023 Reviewed by: Logan Barth APRN.[place] PLANNER - Fully Assessed Reason for Visit: Insurance Authorization [[id number]] Cmt: Aimovig 70MG/ML auto-injectors Prescriptions as of 04/03/2023 - Phentermine HCl 37.5 mg tablet take 1 tablet by mouth every morning before meals - erenumab-aooe (AIMOVIG AUTOINJECTOR) 70 mg/mL auto-injector Inject 1 mL subcutaneously once every month. Do not shake. - ZOLMitriptan (ZOMIG) 5 mg nasal spray Use 1 [place] in the nose as needed at onset [...] mg tablet Facility-Administer ed Medications as of 04/03/2023 - onabotulinum toxin type A 200 Units injection (BOTOX) Problem List As Of Date 03/27/2023 Noted Resolved Seizure-like activity (HCC) [R56.9] 04/01/2022 Psychogenic nonepileptic seizure [F44.5] 10/20/2021 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 w*06/24/2022 Chronic migraine without aura, with intractable* 024 Encounter Status:Closed by ANGELY COTTON on 04/03/23 [facility] 03-21-2023 BASHIR Telephone (NIQ) ---- CONI NICHOLSON ([id number]) 1995 F Date Time Provider Department 03/21/23 LOGAN BARTH During your visit today, we [...] Date Reviewed: 12/12/2022 Reviewed by: Logan Barth APRN.LAND PLANNER - Fully Assessed Reason for Visit: Patient Request [[id number]] Cmt: Headache infusions Prescriptions as of 03/21/2023 - ZOLMitriptan (ZOMIG) 5 mg nasal spray Use 1 [place] in the nose as needed at onset [...] Encounter Status:Closed by MENDOZA DOOLEY on 03/21/23 [facility] ---- CONI NICHOLSON ([id number]) 1995 F Date Time Provider Department 12/13/22 LOGAN BARTH [facility] During your visit today, we recorded the following information about you: Jannette Mcleod, PRATIBHA 12/13/2022 2:10 PM Signed Received approval for Orphenadrine Citrate ER. See attached approval. Scan on 12/13/2022 1:58 PM by Provider, KOKI FrancisC: MARY Approval for Orphenadrine Citrate Allergies As [...] Date Reviewed: 12/12/2022 Reviewed by: Logan Barth APRN.LAND PLANNER - Fully Assessed Prescriptions as of 12/13/2022 [...] (ZOMIG) 5 mg nasal spray Use 1 [place] in the nose as needed at onset [...] Encounter Status:Closed by JANNETTE MCLEOD on 12/13/22 [facility] BASHIR Telephone (NIQ) ---- CONI NICHOLSON ([id number]) 1995 F Date Time Provider Department 12/13/22 LOGAN BARTH During your visit today, we recorded the following information about you: Mendoza Dooley 12/13/2022 2:27 PM Signed Called patient to schedule for 3 days of Non DHE IV infusions. She started she was currently driving and would call back to schedule Logan Barth APRN.LAND PLANNER P Headache Infusion Scheduling Pool; P C21 [...] Date Reviewed: 12/12/2022 Reviewed by: Logan Barth APRN.LAND PLANNER - Fully Assessed Reason for Visit: Infusion [...] (ZOMIG) 5 mg nasal spray Use 1 [place] in the nose as needed at onset [...] Encounter Status:Closed by MENDOZA DOOLEY on 12/13/22 [facility] CNPN Telephone (NIQ) ---- CONI NICHOLSON ([id number]) 1995 F Date Time Provider Department 11/10/22 [...] get infusions scheduled. Number to return call [phone] Okay to leave a message ? Yes Last office visit 10/12/22 with [facility] Next office visit Not scheduled. Thank you calling [facility] [place]. You will receive a return call within [...] Date Reviewed: 10/12/2022 Reviewed by: Suzan Driver APRN.LAND PLANNER - Fully Assessed Reason for Visit: Infusion [...] (ZOMIG) 5 mg nasal spray Use 1 [place] in the nose as needed at onset [...] Encounter Status:Closed by MENDOZA DOOLEY on 11/10/22 Normal [facility] CNOVon 10-12-2022 CNOV Office Visit (NHMNS2) ---- GIULIACAROLINACONI L ([id number]) 1995 F Date Time Provider Department 10/12/22 10:15 AM SUZAN DRIVER [facility] During your visit today, we recorded the following information about you: Pulse Blood pressure Weight Height 91/minute 133/63 108.8 kg 1.549 m Suzan Driver APRN.LAND PLANNER 10/12/2022 11:03 AM Addendum AFTER VISIT CARE [...] maximize the effectiveness of your pain relief. https://my.[facility].org/health/ treatments/8312-bot koncta-hkooo-sbumer ions Download the Chronic Migraine Anatomy Andrzej (by EUDOWEB) to learn more about botox. -HYDRATION Hydration [...] see if you qualify for reimbursement. https://www.botoxsa The Trade Desk[employer]/ Return in 3 months for your next [...] machinery while taking this medication. Suzan Driver APRN.LAND PLANNER 10/12/2022 11:04 AM Signed New Onabotulinum Toxin [...] PHQ-9 06/24/2022 (more content not included)... Normal [facility] CNPNon 09-29-2022 CNPN Telephone (MNOPRX) ---- CONI NICHOLSON ([id number]) 1995 F Date Time Provider Department 09/29/22 ANGELY COTTON MNOPRX During your visit today, we recorded the following information about you: Angely Cotton RN 09/29/2022 11:55 AM Signed [facility] received prescription(s) for Zomig 5MG nasal spray . Benefits investigation was conducted, indicating that a prior authorization is required. PA was initiated and pending review through [email or web address]. All pertinent clinical information was submitted to insurance. CMM Chong: [id number] Ordering Provider: Logan Barth APRN.CNP Murtaugh, Alisha, RN [facility] P: , F: Angely Cotton RN 10/07/2022 3:17 PM Signed Ambulatory Pharmacy Prior Authorization Note Provider Intervention Required?: No- Pharmacy completed on your behalf. Rx Plan: Medicaid MCO ([facility]) Drug: Zomig 5MG nasal spray Cover My Meds Chong: [id number] Determination: Approved Prior Authorization/Case #: n/a Prior [...] refills. Prescriptions will now be processed through [facility] for determination of next steps. For questions relating to this submission, please contact [facility] at [phone] Allergies As of Date: 09/29/2022 Noted Allergy [...] Date Reviewed: 09/12/2022 Reviewed by: Logan Barth APRN.CNP - Fully Assessed Reason for Visit: Insurance Authorization [[id number]] Cmt: Zomig 5MG nasal spray Prescriptions as [...] (ZOMIG) 5 mg nasal spray Use 1 [place] in the nose as needed at onset [...] Encounter Status:Closed by ANGELY COTTON on 10/07/22 [facility] 09-13-2022 [facility] Telephone (NHMNS2) ---- CONI NICHOLSON ([id number]) 1995 F Date Time Provider Department 09/13/22 LOGAN BARTH [facility] During your visit today, we recorded the following information about you: Enedina Tsai RN 09/13/2022 1:31 PM Signed Botox referral sent to pharmacy. PRATIBHA Grahamjulia Pieter 09/14/2022 2:43 PM Signed Patient has been [...] Date Reviewed: 09/12/2022 Reviewed by: Logan Barth APRN.LAND PLANNER - Fully Assessed Reason for Visit: Referral [...] (ZOMIG) 5 mg nasal spray Use 1 [place] in the nose as needed. SPRAY IN [...] Encounter Status:Closed by ENEDINA TSAI on 09/13/22 [facility] CNCOon 09-08-2022 CNCO Letter Text [facility] CNPNon 07-05-2022 CNPN Telephone (MNOPRX) ---- NICHOLSONCONI ARNETT ([id number]) 1995 F Date Time Provider Department 07/05/22 ANGELY COTTON MNOPRX During your visit today, we recorded the following information about you: Angely Cotton RN 07/05/2022 1:18 PM Signed [facility] received prescription(s) for Emgality 120MG/ML auto-injectors (migraine) . Benefits investigation was conducted, indicating that a prior authorization is required. PA was initiated and pending review through [employer]. All pertinent clinical information was submitted to insurance. CMM Chong: [id number] Ordering Provider: Logan Barth APRN.Angely Schaefer RN [facility] P: , F: Angely Cotton RN 07/11/2022 12:55 PM Signed Ambulatory Pharmacy Prior Authorization Note Provider Intervention Required?: No- Pharmacy completed on your behalf. Rx Plan: Medicaid MCO ([facility]) Drug: Emgality 120MG/ML auto-injectors (migraine) Cover My Meds Chong: [id number] Determination: Denied PA Denied because: Step therapy requirement Prior Authorization/Case #: n/a Prior Authorization Expiration: n/a Time to PA Submission in CMM: 15 min Time to PA Determination in CMM: 1 day Additional Information: Full letter scanned into chart for reference, please review letter for full details. No further action by [facility] for now and existing order to be profiled. Angely Cotton RN [facility] P: , F: For questions relating to this submission, please contact [facility] at [phone] Logan Barth APRN.CNP 07/20/2022 12:44 PM Signed She will have follow up visit after infusions, will discuss alternative treatment options at visit. G[facility]BI [facility] 08/29/2022 12:12 PM Signed Patient saw Dr. Wharton 08/08/2022, are we able to use these notes to appeal? Tamiko Riggs RN 08/30/2022 11:[address] Wharton' notes have no information or info needed for an appeal so this cannot be used. Tamiko Riggs RN [facility] 08/30/2022 2:45 PM Signed I did schedule [...] Authorizing Provider: LOGAN BARTH APRN.CNP Green, Koli, APRN.[facility] 09/27/2022 11:37 AM Signed Addended by: [...] Date Reviewed: 06/24/2022 Reviewed by: Logan Barth APRN.LAND PLANNER - Fully Assessed Reason for Visit: Insurance Authorization [[id number]] Cmt: Emgality 120MG/ML auto-injectors (migraine) Order(s):Order #: [id number] Order #: [id number] Prescriptions as of 09/27/2022 - galcanezumab-gnlm (EMGALITY [...] - prometh (more content not included)... Normal [facility] 07-04-2022 FADYN Telephone (MNOPRX) ---- GIULIACONI L ([id number]) 1995 F Date Time Provider Department 07/04/22 LOGAN BARTH MNOPRX During your visit today, we recorded the following information about you: Shirlene Leon 07/04/2022 4:01 PM Signed Ambulatory Pharmacy Prior Authorization Note Provider Intervention Required?: Yes- [place] Medicaid (PCN: [id number]) requires prior authorization to be submitted by the provider. Prior authorization forms required for submission can be found at: [email or web address]/ Forms Drug: EMGALITY PEN 120 mg/mL pen Additional Information: n/a URGENT! Please select Urgent when requesting prior authorization using either [employer] or [facility] sites. This should result in a 24 hour turnaround from [facility]. Please send electronic fax using [employer] or [employer] or manually fax completed paperwork to [phone] with ATTN: PA Help Desk. Any questions, please contact us at [facility] [phone] Enedina Tsai RN 07/27/2022 8:32 AM Addendum Submitted PA via covermyNimbles. Margaret Nicholson (Hcong: [id number]) Emgality 120MG/ML auto-injectors (migraine) Form: [place] Managed Medicaid [facility] Prior Authorization Form Your PA [...] Date Reviewed: 06/24/2022 Reviewed by: Logan Barth APRN.LAND PLANNER - Fully Assessed Prescriptions as of 02/28/2023 [...] (ZOMIG) 5 mg nasal spray Use 1 [place] in the nose as needed at onset [...] Encounter Status:Closed by SHIRLENE LEON on 02/28/23 [facility] Veronica 06-27-2022 BASHIR Telephone (NIQ) ---- MARGARET NICHOLSON ([id number]) 1995 F Date Time Provider Department 06/27/22 [...] Date Reviewed: 06/24/2022 Reviewed by: Logan Barth APRN.FADY - Fully Assessed Reason for Visit: Appointment [...] (ZOMIG) 5 mg nasal spray Use 1 [place] in the nose as needed. SPRAY IN [...] Status:Closed by MENDOZA DOOLEY on 06/27/22 Normal [facility] BLOOD GASES BTYon 06-20-2022 02 MODE ROOM AIR Normal [facility] Comment on above: Performed By: #### B MP #### [facility] [address] [place] [address] Dr. Ibis Jimenez ALLENS TEST Positive [facility] Comment on above: Performed By: #### B MP #### [facility] [address] [place] [address] Dr. Ibis Jimenez Base excess Calc (Bld) [Moles/Vol] -1.6000 mmol/L Normal -2.0-2.0 [facility] Comment on above: Performed By: #### B MP #### [facility] [address] [place] [address] Dr. Ibis Jimenez BIPAP PRESSURE [facility] Comment on above: Performed By: #### B MP #### [facility] [address] [place] [address] Dr. Ibis Jimenez CPAP [facility] Comment on above: Performed By: #### B MP #### [facility] [address] [place] [address] Dr. Ibis Jimenez FIO2 [facility] Comment on above: Performed By: #### B MP #### [facility] [address] [place] [address] Dr. Ibis Jimenez HCO3 (Bld) [Moles/Vol] 23.8 mmol/L Normal 22.0-26.0 [facility] Comment on above: Performed By: #### B MP #### [facility] [address] [place] [address] Dr. Ibis Jimenez [facility] Comment on above: Performed By: #### B MP #### [facility] [address] [address] [address] Ibis Jimenez MINUTE VOLUME Normal [facility] Comment on above: Performed By: #### B MP #### [facility] [address] [place] [address] Dr. Ibis Jimenez Oxygen (Bld) [Partial pressure] 75.5 mm[Hg] Critically low 80.0-100.0 [facility] Comment on above: Performed By: #### B MP #### [facility] [address] [place] [address] Dr. Ibis Jimenez Oxygen saturation in Blood 95.8 % Normal 95.0-100.0 [facility] Comment on above: Performed By: #### B MP #### [facility] [address] [place] [address] Dr. Ibis Jimenez PCO2 41.8 mmHg Normal 35.0-45.0 [facility] Comment on above: Performed By: #### B MP #### [facility] [address] [place] [address] Dr. Ibis Jimenez PEEP [facility] Comment on above: Performed By: #### B MP #### [facility] [address] [place] [address] Dr. Ibis Jimenez pH (Bld) 7.363 [pH] Normal 7.350-7.450 [facility] Comment on above: Performed By: #### B MP #### [facility] [address] [place] [address] Dr. Ibis Jimenez PIP [facility] Comment on above: Performed By: #### B MP #### [facility] [address] [place] [address] Dr. Ibis Jimenez PS [facility] Comment on above: Performed By: #### B MP #### [facility] [address] [place] [address] Dr. Ibis Jimenez PUNCTURE SITE LR [facility] Comment on above: Performed By: #### B MP #### [facility] [address] [place] [address] Dr. Ibis Jimenez [facility] Comment on above: Performed By: #### B MP #### [facility] [address] [place] [address] Dr. Ibis Jimenez [facility] Comment on above: Performed By: #### B MP #### [facility] [address] [place] [address] Dr. Ibis Jimenez [facility] Comment on above: Performed By: #### B MP #### [facility] [address] [place] [address] Dr. Ibis Jimenez CBC AUTO DIFFon 06-20-2022 BASO # 0.0 103/ul Normal 0.0-0.1 [facility] Comment on above: Performed By: #### A CET, SALYC #### [facility] [address] [place] [address] Dr. Ibis Jimenez Basophils/100 WBC (Bld) 0.5 % Normal 0.2-2.0 [facility] Comment on above: Performed By: #### A CET, SALYC #### [facility] [address] [place] [address] Dr. Ibis Jimenez EO # 0.3 103/ul Normal 0.0-0.7 [facility] Comment on above: Performed By: #### A CET, SALYC #### [facility] [address] [place] [address] Dr. Ibis Jimenez Eosinophils/100 WBC (Bld) 4.2 % Normal 0.9-7.0 [facility] Comment on above: Performed By: #### A CET, SALYC #### [facility] [address] [place] [address] Dr. Ibis Jimenez Erythrocyte distribution width (RBC) [Ratio] 13.2 % Normal 11.0-15.0 [facility] Comment on above: Performed By: #### A CET, SALYC #### [facility] [address] [place] [address] Dr. Ibis Jimenez Hematocrit (Bld) [Volume fraction] 36.5 % Normal 36.0-48.0 [facility] Comment on above: Performed By: #### A CET, SALYC #### [facility] [address] [place] [address] Dr. Ibis Jimenez Hemoglobin (Bld) [Mass/Vol] 11.7 g/dL Critically low 12.0-16.0 [facility] Comment on above: Performed By: #### A CET, SALYC #### [facility] [address] [place] [address] Dr. Ibis Jimenez IG # 0.05 10e3/ul Critically high 0.00-0.03 [facility] Comment on above: Performed By: #### A CET, SALYC #### [facility] [address] [place] [address] Dr. Ibis Jimenez IG % 0.8 % Critically high 0.0-0.5 [facility] Comment on above: Performed By: #### A CET, SALYC #### [facility] [address] [place] [address] Dr. Ibis Jimenez LYMPH # 1.7 103/ul Normal 1.2-3.8 [facility] Comment on above: Performed By: #### A CET, SALYC #### [facility] [address] [place] [address] Dr. Ibis Jimenez Lymphocytes/100 WBC (Bld) 26.9 % Normal 20.5-60.0 [facility] Comment on above: Performed By: #### A CET, SALYC #### [facility] [address] [place] [address] Dr. Ibis Jimenez MANUAL DIFF REQ NO Normal [facility] Comment on above: Performed By: #### A CET, SALYC #### [facility] [address] [place] [address] Dr. Ibis Jimenez MCH (RBC) [Entitic mass] 28.7 pg Normal 26.7-34.0 [facility] Comment on above: Performed By: #### A CET, SALYC #### [facility] [address] [place] [address] Dr. Ibis Jimenez MCHC (RBC) [Mass/Vol] 32.1 g/dL Normal 29.9-35.2 [facility] Comment on above: Performed By: #### A CET, SALYC #### [facility] [address] [place] [address] Dr. Ibis Jimenez MCV (RBC) [Entitic vol] 89.7 fL Normal 81.0-99.0 [facility] Comment on above: Performed By: #### A CET, SALYC #### [facility] [address] [place] [address] Dr. Ibis Jimenez MONO # 0.6 103/ul Normal 0.3-0.8 [facility] Comment on above: Performed By: #### A CET, SALYC #### [facility] [address] [place] [address] Dr. Ibis Jimenez Monocytes/100 WBC (Bld) 8.9 % Normal 1.7-12.0 [facility] Comment on above: Performed By: #### A CET, SALYC #### [facility] [address] [place] [address] Dr. Ibis Jimenez NEUT # 3.8 103/ul Normal 1.4-6.5 [facility] Comment on above: Performed By: #### A CET, SALYC #### [facility] [address] [place] [address] Dr. Ibis Jimenez Neutrophils/100 WBC (Bld) 58.7 % Normal 43.0-75.0 [facility] Comment on above: Performed By: #### A CET, SALYC #### [facility] [address] [place] [address] Dr. Ibis Jimenez Platelet mean volume (Bld) [Entitic vol] 9.3 fL Critically low 9.5-13.5 [facility] Comment on above: Performed By: #### A CET, SALYC #### [facility] [address] [place] [address] Dr. Ibis Jimenez PLT 188 103/ul Normal 150-450 [facility] Comment on above: Performed By: #### A CET, SALYC #### [facility] [address] [address] [address] Ibis Jimenez RBC 4.07 106/ul Critically low 4.20-5.40 [facility] Comment on above: Performed By: #### A CET, SALYC #### [facility] [address] [address] [address] Ibis Jimenez WBC 6.4 103/ul Normal 4.0-11.0 [facility] Comment on above: Performed By: #### A CET, SALYC #### [facility] [address] [address] [address] Ibis Jimenez DRUG SCREEN RAPID (URINE)on 06-20-2022 AMP Negative Normal NEGATIVE [facility] Comment on above: Performed By: #### B MP #### [facility] [address] [place] [address] Dr. Ibis Jimenez BAR Positive Abnormal NEGATIVE [facility] Comment on above: Performed By: #### B MP #### [facility] [address] [place] [address] Dr. Ibis Jimenez BUP Negative Normal NEGATIVE [facility] Comment on above: Performed By: #### B MP #### [facility] [address] [place] [address] Dr. Ibis Jimenez BZO Positive Abnormal NEGATIVE [facility] Comment on above: Performed By: #### B MP #### [facility] [address] [place] [address] Dr. Ibis Jimenez SEMAJ Negative Normal NEGATIVE [facility] Comment on above: Performed By: #### B MP #### [facility] [address] [place] [address] Dr. Ibis Jimenez CUT-OFFS SEE BELOW Normal [facility] Comment on above: Result Comment: AMP [...] ng/mL Performed By: #### B MP #### [facility] [address] [place] [address] Dr. Ibis Jimenez DRUG CUT HEADER DRUG CLASS TEST SYSTEM CUT-OFF CONCENTRATIONS ARE FOLLOWS: Normal [facility] [facility] Comment on above: Performed By: #### B MP #### [facility] [address] [place] [address] Dr. Ibis Jimenez mAMP Negative Normal NEGATIVE [facility] Comment on above: Performed By: #### B MP #### [facility] [address] [place] [address] Dr. Ibis Jimenez MTD Negative Normal NEGATIVE [facility] Comment on above: Performed By: #### B MP #### [facility] [address] [place] [address] Dr. Ibis Jimenez OPI Negative Normal NEGATIVE [facility] Comment on above: Performed By: #### B MP #### [facility] [address] [place] [address] Dr. Ibis Jimenez OXY Negative Normal NEGATIVE [facility] Comment on above: Performed By: #### B MP #### [facility] [address] [place] [address] Dr. Ibis Jimenez PCP Negative Normal NEGATIVE [facility] Comment on above: Performed By: #### B MP #### [facility] [address] [place] [address] Dr. Ibis Jimenez PPX Negative Normal NEGATIVE [facility] Comment on above: Performed By: #### B MP #### [facility] [address] [place] [address] Dr. Ibis Jimenez TCA Positive Abnormal NEGATIVE [facility] Comment on above: Performed By: #### B MP #### [facility] [address] [place] [address] Dr. Ibis Jimenez THC Positive Abnormal NEGATIVE [facility] Comment on above: Performed By: #### B MP #### [facility] [address] [place] [address] Dr. Ibis Jimenez ER URINE PROFILEon 3 Bilirubin Ql (U) Negative Normal NEGATIVE [facility] Comment on above: Performed By: #### A CET, SALYC #### [facility] [address] [place] [address] Dr. Ibis Jimenez Clarity (U) CLEAR Normal CLEAR [facility] Comment on above: Performed By: #### A CET, SALYC #### [facility] [address] [place] [address] Dr. Ibis Jimenez Color (U) YELLOW Normal YELLOW [facility] Comment on above: Performed By: #### A CET, SALYC #### [facility] [address] [place] [address] Dr. Ibis Garcia micrscopic examination will be performed if indicated. Normal [facility] Comment on above: Performed By: #### A CET, SALYC #### [facility] [address] [place] [address] Dr. Ibis Jimenez Glucose Ql (U) Negative Normal NEGATIVE [facility] Comment on above: Performed By: #### A CET, SALYC #### [facility] [address] [place] [address] Dr. Ibis Jimenez Hemoglobin Ql (U) Negative Normal NEGATIVE [facility] Comment on above: Performed By: #### A CET, SALYC #### [facility] [address] [place] [address] Dr. Ibis Jimenez Ketones Ql (U) Negative Normal NEGATIVE [facility] Comment on above: Performed By: #### A CET, SALYC #### [facility] [address] [place] [address] Dr. Ibis Jimenez LEUKOCYTES Negative Normal NEGATIVE [facility] Comment on above: Performed By: #### A CET, SALYC #### [facility] [address] [place] [address] Dr. Ibis Jimenez Nitrite Ql (U) Negative Normal NEGATIVE [facility] Comment on above: Performed By: #### A CET, SALYC #### [facility] [address] [place] [address] Dr. Ibis Jimenez pH (U) 5.0 [pH] Normal 5-9 [facility] Comment on above: Performed By: #### A CET, SALYC #### [facility] [address] [place] [address] Dr. Ibis Jimenez SPEC GRAVITY >=1.030 Abnormal 1.005-<=1.02 5 [facility] Comment on above: Performed By: #### A CET, SALYC #### [facility] [address] [place] [address] Dr. Ibis Jimenez UA PROTEIN Negative Normal NEGATIVE/ TRACE [facility] Comment on above: Performed By: #### A CET, SALYC #### [facility] [address] [place] [address] Dr. Ibis Jimenez UR MICRO IND NOT INDICATED Normal [facility] Comment on above: Performed By: #### A CET, SALYC #### [facility] [address] [place] [address] Dr. Ibis Jimenez Urobilinogen Qn (U) 0.2 {Dinorah'U}/dL Normal 0.2 - 1. 0 [facility] Comment on above: Performed By: #### A CET, SALYC #### [facility] [address] [place] [address] Dr. Ibis Jimenez PROF CHEM 8 (BAS METB)on Anion gap [Moles/Vol] 13.1 mmol/L Normal [facility] Comment on above: Performed By: #### M DAVID #### [facility] [address] [place] [address] Dr. Ibis Jimenez Calcium [Mass/Vol] 8.3 mg/dL Critically low 8.5-10.1 [facility] Comment on above: Performed By: #### M DAVID #### [facility] [address] [place] [address] Dr. Ibis Jimenez Chloride [Moles/Vol] 109 mmol/L Critically high 98-107 [facility] Comment on above: Performed By: #### M DAVID #### [facility] [address] [address] [address] Ibis Jimenez CO2 [Moles/Vol] 25.7 mmol/L Normal 21.0-32.0 [facility] Comment on above: Performed By: #### M DAVID #### [facility] [address] [address] [address] Ibis Jimenez Creatinine [Mass/Vol] 0.82 mg/dL Normal 0.55-1.02 [facility] Comment on above: Performed By: #### M DAVID #### [facility] [address] [address] [address] Ibis Jimenez EGFR-AF TURKISH >60 Normal >=60 [facility] Comment on above: Performed By: #### M DAVID #### [facility] [address] [address] [address] Ibis Jimenez EGFR-NON AF TURKISH >60 Normal >=60 [facility] Comment on above: Performed By: #### M DAVID #### [facility] [address] [address] [address] Ibis Jimenez Glucose [Mass/Vol] 95 mg/dL Normal 74-106 [facility] Comment on above: Performed By: #### M DAVID #### [facility] [address] [address] [address] Ibis Jimenez Potassium [Moles/Vol] 3.8 mmol/L Normal 3.5-5.1 [facility] Comment on above: Performed By: #### M DAVID #### [facility] [address] [address] [address] Ibis Jimenez Sodium [Moles/Vol] 144 mmol/L Normal 136-145 [facility] Comment on above: Performed By: #### M DAVID #### [facility] [address] [address] [address] Ibis Jimenez Urea nitrogen [Mass/Vol] 16.0 mg/dL Normal 7.0-18.0 [facility] Comment on above: Performed By: #### M DAVID #### [facility] [address] [address] [address] Ibis Jimenez Urea nitrogen/Creatinine [Mass ratio] 19.5 mg/mg Normal [facility] Comment on above: Performed By: #### M DAVID #### [facility] [address] [place] [address] Dr. Ibis Jimenez ACETAMINOPHENon 06-19-2022 Acetaminophen [Mass/Vol] ug/mL Critically low 10.0-30.0 [facility] Comment on above: Performed By: #### A CET, SALYC #### [facility] [address] [place] [address] Dr. Ibis Jimenez DRUG SCREEN RAPID (URINE)on 06-19-2022 AMP Negative Normal NEGATIVE [facility] Comment on above: Performed By: #### M DAVID #### [facility] [address] [place] [address] Dr. Ibis Jimenez BAR Positive Abnormal NEGATIVE [facility] Comment on above: Performed By: #### M DAVID #### [facility] [address] [place] [address] Dr. Ibis Jimenez BUP Negative Normal NEGATIVE [facility] Comment on above: Performed By: #### M DAVID #### [facility] [address] [place] [address] Dr. Ibis Jimenez BZO Positive Abnormal NEGATIVE [facility] Comment on above: Performed By: #### M DAVID #### [facility] [address] [place] [address] Dr. Ibis Jimenez SEMAJ Negative Normal NEGATIVE [facility] Comment on above: Performed By: #### M DAVID #### [facility] [address] [place] [address] Dr. Ibis Jimenez CUT-OFFS SEE BELOW Normal [facility] Comment on above: Result Comment: AMP [...] ng/mL Performed By: #### M DAVID #### [facility] [address] [place] [address] Dr. Ibis Jimenez DRUG CUT HEADER DRUG CLASS TEST SYSTEM CUT-OFF CONCENTRATIONS ARE FOLLOWS: Normal [facility] Comment on above: Performed By: #### M DAVID #### [facility] [address] [place] [address] Dr. Ibis Jimenez mAMP Negative Normal NEGATIVE [facility] Comment on above: Performed By: #### M DAVID #### [facility] [address] [place] [address] Dr. Ibis Jimenez MTD Negative Normal NEGATIVE [facility] Comment on above: Performed By: #### M DAVID #### [facility] [address] [place] [address] Dr. Ibis Jimenez OPI Positive Abnormal NEGATIVE [facility] Comment on above: Performed By: #### M DAVID #### [facility] [address] [place] [address] Dr. Ibis Jimenez OXY Negative Normal NEGATIVE [facility] Comment on above: Performed By: #### M DAVID #### [facility] [address] [place] [address] Dr. Ibis Jimenez PCP Negative Normal NEGATIVE [facility] Comment on above: Performed By: #### M DAVID #### [facility] [address] [place] [address] Dr. Ibis Jimenez PPX Negative Normal NEGATIVE [facility] Comment on above: Performed By: #### M DAVID #### [facility] [address] [place] [address] Dr. Ibis Jimenze TCA Negative Normal NEGATIVE [facility] Comment on above: Performed By: #### M DAVID #### [facility] [address] [address] [address] Ibis Jimenez THC Positive Abnormal NEGATIVE [facility] Comment on above: Performed By: #### M DAVID #### [facility] [address] [place] [address] Dr. Ibis Jimenez ER URINE PROFILEon 3 Bilirubin Ql (U) Negative Normal NEGATIVE [facility] Comment on above: Performed By: #### M DAVID #### [facility] [address] [place] [address] Dr. Ibis Jimenez Clarity (U) CLEAR Normal CLEAR [facility] Comment on above: Performed By: #### M DAVID #### [facility] [address] [place] [address] Dr. Ibis Jimenez Color (U) YELLOW Normal YELLOW [facility] Comment on above: Performed By: #### M DAVID #### [facility] [address] [place] [address] Dr. Ibis RODRIGUEZ A micrscopic examination will be performed if indicated. Normal [facility] Comment on above: Performed By: #### M DAVID #### [facility] [address] [place] [address] Dr. Ibis Jimenez Glucose Ql (U) Negative Normal NEGATIVE [facility] Comment on above: Performed By: #### M DAVID #### [facility] [address] [place] [address] Dr. Ibis Jimenez Hemoglobin Ql (U) TRACE-INTACT Abnormal NEGATIVE [facility] Comment on above: Performed By: #### M DAVID #### [facility] [address] [place] [address] Dr. Ibis Jimenez Ketones Ql (U) Negative Normal NEGATIVE [facility] Comment on above: Performed By: #### M DAVID #### [facility] [address] [place] [address] Dr. Ibis Jimenez LEUKOCYTES Negative Normal NEGATIVE [facility] Comment on above: Performed By: #### M DAVID #### [facility] [address] [place] [address] Dr. Ibis Jimenez Nitrite Ql (U) Negative Normal NEGATIVE [facility] Comment on above: Performed By: #### M DAVID #### [facility] [address] [address] [address] Ibis Jimenez pH (U) 6.0 [pH] Normal 5-9 [facility] Comment on above: Performed By: #### M DAVID #### [facility] [address] [address] [address] Ibis Jimenez Protein (U) [Mass/Vol] 30 mg/dL Abnormal NEGAT ADALGISA/ TRACE [facility] Comment on above: Performed By: #### M DAVID #### [facility] [address] [address] [address] Ibis Jimenez SPEC GRAVITY 1.025 Normal 1.005-<=1.02 5 [facility] Comment on above: Performed By: #### M DAVID #### [facility] [address] [place] [address] Dr. Ibis Jimenez UR MICRO IND INDICATED Normal [facility] Comment on above: Performed By: #### M DAVID #### [facility] [address] [address] [address] Ibis Jimenez Urobilinogen Qn (U) 0.2 {Dinorah'U}/dL Normal 0.2 - 1. 0 [facility] Comment on above: Performed By: #### M DAVID #### [facility] [address] [place] [address] Dr. Ibis Jimenez ETHANOL (BLD ALC)on 06-20-19 ALC NOTE NOTE: 80 mg/dl is the legal limit for a blood alcohol level Normal [facility] Comment on above: Performed By: #### A MM #### [facility] [address] [address] [address] Ibis Jimenez Ethanol [Mass/Vol] mg/dL Normal [facility] Comment on above: Performed By: #### A MM #### [facility] [address] [place] [address] Dr. Ibis Jimenez POINT OF CARE GLUCOSEon 05-23 Glucose [Mass/Vol] 88 mg/dL Normal 74-106 [facility] Comment on above: Performed By: #### C VDTBH #### [facility] [address] [address] [address] Ibis Jimenez URon 06-19-2022 , QUAL Negative Normal NEGATIVE [facility] Comment on above: Performed By: #### M DAVID #### [facility] [address] [place] [address] Dr. Ibis Jimenez PROF CHEM 8 (BAS METB)on Anion gap [Moles/Vol] 12.6 mmol/L Normal [facility] Comment on above: Performed By: #### A MM #### [facility] [address] [place] [address] Dr. Ibis Jimenez Calcium [Mass/Vol] 8.4 mg/dL Critically low 8.5-10.1 [facility] Comment on above: Performed By: #### A MM #### [facility] [address] [place] [address] Dr. Ibis Jimenez Chloride [Moles/Vol] 107 mmol/L Normal 98-107 [facility] Comment on above: Performed By: #### A MM #### [facility] [address] [place] [address] Dr. Ibis Jimenez CO2 [Moles/Vol] 22.5 mmol/L Normal 21.0-32.0 [facility] Comment on above: Performed By: #### A MM #### [facility] [address] [place] [address] Dr. Ibis Jimenez Creatinine [Mass/Vol] 0.82 mg/dL Normal 0.55-1.02 [facility] Comment on above: Performed By: #### A MM #### [facility] [address] [place] [address] Dr. Ibis Jimenez EGFR-AF TURKISH >60 Normal >=60 [facility] Comment on above: Performed By: #### A MM #### [facility] [address] [place] [address] Dr. Ibis Jimenez EGFR-NON AF TURKISH >60 Normal >=60 [facility] Comment on above: Performed By: #### A MM #### [facility] [address] [address] [address] Ibis Jimenez Glucose [Mass/Vol] 87 mg/dL Normal 74-106 [facility] Comment on above: Performed By: #### A MM #### [facility] [address] [address] [address] Ibis Jimenez Potassium [Moles/Vol] 4.1 mmol/L Normal 3.5-5.1 [facility] Comment on above: Performed By: #### A MM #### [facility] [address] [address] [address] Ibis Jimenez Sodium [Moles/Vol] 138 mmol/L Normal 136-145 [facility] Comment on above: Performed By: #### A MM #### [facility] [address] [address] [address] Ibis Jimenez Urea nitrogen [Mass/Vol] 22.0 mg/dL Critically high 7.0-18.0 [facility] Comment on above: Performed By: #### A MM #### [facility] [address] [address] [address] Ibis Jimenez Urea nitrogen/Creatinine [Mass ratio] 26.8 mg/mg Normal [facility] Comment on above: Performed By: #### A MM #### [facility] [address] [place] [address] Dr. Ibis Jimenez SALICYLATEon 06-19-2022 SALICYLATE <2.8 Normal <=19.9 [facility] Comment on above: Performed By: #### A CET, SALYC #### [facility] [address] [address] [address] Ibis Jimenez URINE MICROSCOPIC ONLYon BACTERIA NONE SEEN Normal NONE SEEN [facility] Comment on above: Performed By: #### M DAVID #### [facility] [address] [address] [address] Ibis Jimenez Bacteria identified Cx Nom (U) NOT INDICATED Normal [facility] Comment on above: Performed By: #### M DAVID #### [facility] [address] [address] [address] Ibis Jimenez CAST SEEN Abnormal NONE SEEN [facility] Comment on above: Performed By: #### M DAVID #### [facility] [address] [place] [address] Dr. Ibis Jimenez Crystals LM Nom (Urine sed) NONE SEEN Normal NONE SEEN [facility] Comment on above: Performed By: #### M DAVID #### [facility] [address] [address] [address] Ibis Jimenez Epithelial cells LM Ql (Urine sed) MODERATE Abnormal NONE SEEN /RARE [facility] Comment on above: Performed By: #### M DAVID #### [facility] [address] [place] [address] Dr. Ibis Jimenez HYALINE CAST FEW Normal [facility] Comment on above: Performed By: #### M DAVID #### [facility] [address] [place] [address] Dr. Ibis Jimenez MUCOUS NONE SEEN Normal NONE SEEN [facility] Comment on above: Performed By: #### M DAVID #### [facility] [address] [place] [address] Dr. Ibis Jimenez RBC 2-5 Abnormal 0-2 [facility] Comment on above: Performed By: #### M DAVID #### [facility] [address] [place] [address] Dr. Ibis Jimenez WBC NONE SEEN Normal NONE SEEN [facility] Comment on above: Performed By: #### M DAVID #### [facility] [address] [place] [address] Dr. Ibis Jimenez CBC AUTO DIFFon 06-11-2022 BASO # 0.0 103/ul Normal 0.0-0.1 [facility] Comment on above: Performed By: #### C VDTBH #### [facility] [address] [place] [address] Dr. Ibis Jimenez Basophils/100 WBC (Bld) 0.3 % Normal 0.2-2.0 [facility] Comment on above: Performed By: #### C VDTBH #### [facility] [address] [address] [address] Ibis Jimenez EO # 0.0 103/ul Normal 0.0-0.7 [facility] Comment on above: Performed By: #### C VDTBH #### [facility] [address] [address] [address] Ibis Jimenez Eosinophils/100 WBC (Bld) 0.1 % Critically low 0.9-7.0 [facility] Comment on above: Performed By: #### C VDTBH #### [facility] [address] [place] [address] Dr. Ibis Jimenez Erythrocyte distribution width (RBC) [Ratio] 13.2 % Normal 11.0-15.0 [facility] Comment on above: Performed By: #### C VDTBH #### [facility] [address] [place] [address] Dr. Ibis Jimenez Hematocrit (Bld) [Volume fraction] 38.5 % Normal 36.0-48.0 [facility] Comment on above: Performed By: #### C VDTBH #### [facility] [address] [place] [address] Dr. Ibis Jimenez Hemoglobin (Bld) [Mass/Vol] 12.4 g/dL Normal 12.0-16.0 [facility] Comment on above: Performed By: #### C VDTBH #### [facility] [address] [place] [address] Dr. Ibis Jimenez IG # 0.20 10e3/ul Critically high 0.00-0.03 [facility] Comment on above: Performed By: #### C VDTBH #### [facility] [address] [place] [address] Dr. Ibis Jimenez IG % 1.8 % Critically high 0.0-0.5 [facility] Comment on above: Performed By: #### C VDTBH #### [facility] [address] [place] [address] Dr. Ibis Jimenez LYMPH # 0.5 103/ul Critically low 1.2-3.8 [facility] Comment on above: Performed By: #### C VDTBH #### [facility] [address] [address] [address] Ibis Jimenez Lymphocytes/100 WBC (Bld) 4.6 % Critically low 20.5-60.0 [facility] Comment on above: Performed By: #### C VDTBH #### [facility] [address] [address] [address] Ibis Jimenez MANUAL DIFF REQ NO Normal [facility] Comment on above: Performed By: #### C VDTBH #### [facility] [address] [place] [address] Dr. Ibis Jimenez MCH (RBC) [Entitic mass] 28.2 pg Normal 26.7-34.0 [facility] Comment on above: Performed By: #### C VDTBH #### [facility] [address] [place] [address] Dr. Ibis Jimenez MCHC (RBC) [Mass/Vol] 32.2 g/dL Normal 29.9-35.2 [facility] Comment on above: Performed By: #### C VDTBH #### [facility] [address] [place] [address] Dr. Ibis Jimenez MCV (RBC) [Entitic vol] 87.5 fL Normal 81.0-99.0 [facility] Comment on above: Performed By: #### C VDTBH #### [facility] [address] [place] [address] Dr. Ibis Jimenez MONO # 0.1 103/ul Critically low 0.3-0.8 [facility] Comment on above: Performed By: #### C VDTBH #### [facility] [address] [place] [address] Dr. Ibis Jimenez Monocytes/100 WBC (Bld) 1.3 % Critically low 1.7-12.0 [facility] Comment on above: Performed By: #### C VDTBH #### [facility] [address] [place] [address] Dr. Ibis Jimenez NEUT # 10.1 103/ul Critically high 1.4-6.5 [facility] Comment on above: Performed By: #### C VDTBH #### [facility] [address] [place] [address] Dr. Ibis Jimenez Neutrophils/100 WBC (Bld) 91.9 % Critically high 43.0-75.0 [facility] Comment on above: Performed By: #### C VDTBH #### [facility] [address] [place] [address] Dr. Ibis Jimenez Platelet mean volume (Bld) [Entitic vol] 9.1 fL Critically low 9.5-13.5 [facility] Comment on above: Performed By: #### C VDTBH #### [facility] [address] [place] [address] Dr. Ibis Jimenez PLT 240 103/ul Normal 150-450 [facility] Comment on above: Performed By: #### C VDTBH #### [facility] [address] [place] [address] Dr. Ibis Jimenez RBC 4.40 106/ul Normal 4.20-5.40 [facility] Comment on above: Performed By: #### C VDTBH #### [facility] [address] [place] [address] Dr. Ibis Jimenez WBC 11.0 103/ul Normal 4.0-11.0 [facility] Comment on above: Performed By: #### C VDTBH #### [facility] [address] [place] [address] Dr. Ibis Jimenez PROF 14(COMP METB)on 023 Albumin [Mass/Vol] 3.3 g/dL Critically low 3.4-5.0 [facility] Comment on above: Performed By: #### B MP #### [facility] [address] [place] [address] Dr. Ibis Jimenez Albumin/Globulin [Mass ratio] 0.9 {ratio} Normal [facility] Comment on above: Performed By: #### B MP #### [facility] [address] [place] [address] Dr. Ibis Jimenez ALP [Catalytic activity/Vol] 63 U/L Normal 46-116 [facility] Comment on above: Performed By: #### B MP #### [facility] [address] [address] [address] Ibis Jimenez ALT [Catalytic activity/Vol] 32 U/L Normal 14-59 [facility] Comment on above: Performed By: #### B MP #### [facility] [address] [address] [address] Ibis Jimenez Anion gap [Moles/Vol] 12.9 mmol/L Normal [facility] Comment on above: Performed By: #### B MP #### [facility] [address] [address] [address] Ibis Jimenez AST [Catalytic activity/Vol] 14 U/L Critically low 15-37 [facility] Comment on above: Performed By: #### B MP #### [facility] [address] [address] [address] Ibis Jimenez Bilirubin [Mass/Vol] 0.2 mg/dL Normal 0.2-1.0 [facility] Comment on above: Performed By: #### B MP #### [facility] [address] [address] [address] Ibis Jimenez Calcium [Mass/Vol] 8.5 mg/dL Normal 8.5-10.1 [facility] Comment on above: Performed By: #### B MP #### [facility] [address] [address] [address] Ibis Jimenez Chloride [Moles/Vol] 106 mmol/L Normal 98-107 [facility] Comment on above: Performed By: #### B MP #### [facility] [address] [address] [address] Ibis Jimenez CO2 [Moles/Vol] 26.6 mmol/L Normal 21.0-32.0 [facility] Comment on above: Performed By: #### B MP #### [facility] [address] [address] [address] Ibis Jimenez Creatinine [Mass/Vol] 0.89 mg/dL Normal 0.55-1.02 [facility] Comment on above: Performed By: #### B MP #### [facility] [address] [address] [address] Ibis Jimenez EGFR-AF TURKISH >60 Normal >=60 [facility] Comment on above: Performed By: #### B MP #### [facility] [address] [address] [address] Ibis Jimenez EGFR-NON AF TURKISH >60 Normal >=60 [facility] Comment on above: Performed By: #### B MP #### [facility] [address] [address] [address] Ibis Jimenez Globulin (S) [Mass/Vol] 3.6 g/dL Normal [facility] Comment on above: Performed By: #### B MP #### [facility] [address] [address] [address] Ibis Jimenez Glucose [Mass/Vol] 134 mg/dL Critically high 74-106 [facility] Comment on above: Performed By: #### B MP #### [facility] [address] [address] [address] Ibis Jimenez Potassium [Moles/Vol] 4.5 mmol/L Normal 3.5-5.1 [facility] Comment on above: Performed By: #### B MP #### [facility] [address] [address] [address] Ibis Jimenez Protein [Mass/Vol] 6.9 g/dL Normal 6.4-8.2 [facility] Comment on above: Performed By: #### B MP #### [facility] [address] [address] [address] Ibis Jimenez Sodium [Moles/Vol] 141 mmol/L Normal 136-145 [facility] Comment on above: Performed By: #### B MP #### [facility] [address] [address] [address] Ibis Jimenez Urea nitrogen [Mass/Vol] 15.0 mg/dL Normal 7.0-18.0 [facility] Comment on above: Performed By: #### B MP #### [facility] [address] [place], [place] [address] Dr. Ibis Jimenez Urea nitrogen/Creatinine [Mass ratio] 16.9 mg/mg Normal [facility] Comment on above: Performed By: #### B MP #### [facility] [address] [place], [place] [address] HEAD WO CONon [...] NICHOLAS MARCUS Date: 2022-05-23 19:25 Normal [facility] CT LSPINE WO CONon [address] [facility] CT CERVICAL SPINE WITHOUT CONTRAST. CT LUMBAR [...] SINDY LIAOU Date: 2022-05-23 19:41 Normal [facility] CT HEAD WO CONon 04-01-2022 CT [...] ROBIN IRBY Date: 2022-03-31 22:40 Normal [facility] Covid-19 PCR (CVDTB)on 03-23 SARS-CoV-2 (COVID-19) RNA SAURABH+probe Ql (Unsp spec) Not detected Normal NOT DETECTED [facility] Comment on above: Result Comment: When [...] for this test is supported by the Shareholder of Health and Human Service's declaration that [...] used). Performed By: #### C VDTB #### [facility] [address] [place] [address] Dr. Ibis Jimenez ER URINE PROFILEon 3 Bilirubin Ql (U) Negative Normal NEGATIVE [facility] Comment on above: Performed By: #### A CET, SALYC #### [facility] [address] [place] [address] Dr. Ibis Jimenez Clarity (U) CLEAR Normal CLEAR [facility] Comment on above: Performed By: #### A CET, SALYC #### [facility] [address] [place] [address] Dr. Ibis Jimenez Color (U) YELLOW Normal YELLOW [facility] Comment on above: Performed By: #### A CET, SALYC #### [facility] [address] [place] [address] Dr. Ibis Jimenez ERUAHD A micrscopic examination will be performed if indicated. Normal [facility] Comment on above: Performed By: #### A CET, SALYC #### [facility] [address] [place] [address] Dr. Ibis Jimenez Glucose Ql (U) Negative Normal NEGATIVE [facility] Comment on above: Performed By: #### A CET, SALYC #### [facility] [address] [place] [address] Dr. Ibis Jimenez Hemoglobin Ql (U) SMALL Abnormal NEGATIVE [facility] Comment on above: Performed By: #### A CET, SALYC #### [facility] [address] [place] [address] Dr. Ibis Jimenez Ketones Ql (U) Negative Normal NEGATIVE [facility] Comment on above: Performed By: #### A CET, SALYC #### [facility] [address] [place] [address] Dr. Ibis Jimenez LEUKOCYTES Negative Normal NEGATIVE [facility] Comment on above: Performed By: #### A CET, SALYC #### [facility] [address] [place] [address] Dr. Ibis Jimenez Nitrite Ql (U) Negative Normal NEGATIVE [facility] Comment on above: Performed By: #### A CET, SALYC #### [facility] [address] [place] [address] Dr. Ibis Jimenez pH (U) 5.5 [pH] Normal 5-9 [facility] Comment on above: Performed By: #### A CET, SALYC #### [facility] [address] [place] [address] Dr. Ibis Jimenez SPEC GRAVITY >=1.030 Abnormal 1.005-<=1.02 5 [facility] Comment on above: Performed By: #### A CET, SALYC #### [facility] [address] [place] [address] Dr. Ibis Jimenez UA PROTEIN Negative Normal NEGATIVE/ TRACE [facility] Comment on above: Performed By: #### A CET, SALYC #### [facility] [address] [place] [address] Dr. Ibis Jimenez UR MICRO IND INDICATED Normal [facility] Comment on above: Performed By: #### A CET, SALYC #### [facility] [address] [place] [address] Dr. Ibis Jimenez Urobilinogen Qn (U) 0.2 {Dinorah'U}/dL Normal 0.2 - 1. 0 [facility] Comment on above: Performed By: #### A CET, SALYC #### [facility] [address] [place] [address] Dr. Ibis Jimenez INFLUENZA A AND B AGon 04-01 INFLUANEGH SEE BELOW Normal [facility] Comment on above: Result Comment: Nega tive for Flu A protein angiten. Infection due to Flu A cannot be ruled out. Flu A angiten in the sample may be below the detection limit of the test. Performed By: #### A MM #### [facility] [address] [place] [address] Dr. Ibis Jimenez [facility] SEE BELOW Normal [facility] Comment on above: Result Comment: Nega tive for Flu B protein antigen. Infection due to Flu B cannot be ruled out. Flu B antigen in the sample may be below the detection limit of the test. Performed By: #### A MM #### [facility] [address] [place] [address] Dr. Ibis Jimenez INFLUENZA A AG Negative Normal NEGATIVE SEE COMMENT [facility] Comment on above: Performed By: #### A MM #### [facility] [address] [place] [address] Dr. Ibis Jimenez INFLUENZA B AG Negative Normal NEGATIVE SEE COMMENT [facility] Comment on above: Performed By: #### A MM #### [facility] [address] [place] [address] Dr. Ibis Jimenez LACTATE/LACTIC ACIDon 2022 Lactate [Moles/Vol] 1.9 mmol/L Normal 0.4-1.9 [facility] Comment on above: Performed By: #### L ACT #### [facility] [address] [place] [address] Dr. Ibis Jimenez URINE MICROSCOPIC ONLYon BACTERIA TRACE Abnormal NONE SEEN [facility] Comment on above: Performed By: #### A CET, SALYC #### [facility] [address] [place] [address] Dr. Ibis Jimenez Bacteria identified Cx Nom (U) NOT INDICATED Normal [facility] Comment on above: Performed By: #### A CET, SALYC #### [facility] [address] [place] [address] Dr. Ibis Jimenez CAST NONE SEEN Normal NONE SEEN [facility] Comment on above: Performed By: #### A CET, SALYC #### [facility] [address] [place] [address] Dr. Ibis Jimenez Crystals LM Nom (Urine sed) NONE SEEN Normal NONE SEEN [facility] Comment on above: Performed By: #### A CET, SALYC #### [facility] [address] [place] [address] Dr. Ibis Jimenez Epithelial cells LM Ql (Urine sed) RARE Normal NONE SEEN /RARE [facility] Comment on above: Performed By: #### A CET, SALYC #### [facility] [address] [place] [address] Dr. Ibis Jimenez MUCOUS TRACE Abnormal NONE SEEN [facility] Comment on above: Performed By: #### A CET, SALYC #### [facility] [address] [place] [address] Dr. Ibis Jimenez RBC 0-2 Normal 0-2 [facility] Comment on above: Performed By: #### A CET, SALYC #### [facility] [address] [place] [address] Dr. Ibis Jimenez WBC NONE SEEN Normal NONE SEEN [facility] Comment on above: Performed By: #### A CET, SALYC #### [facility] [address] [place] [address] Dr. Ibis Jimenez AMMONIAon 03-31-2022 Ammonia (P) [Moles/Vol] 31 umol/L Normal 11-32 [facility] Comment on above: Performed By: #### A MM #### [facility] [address] [place] [address] Dr. Ibis Jimenez CBC AUTO DIFFon 03-31-2022 BASO # 0.0 103/ul Normal 0.0-0.1 [facility] Comment on above: Performed By: #### A MM #### [facility] [address] [place] [address] Dr. Ibis Jimenez Basophils/100 WBC (Bld) 0.4 % Normal 0.2-2.0 [facility] Comment on above: Performed By: #### A MM #### [facility] [address] [place] [address] Dr. Ibis Jimenez EO # 0.5 103/ul Normal 0.0-0.7 [facility] Comment on above: Performed By: #### A MM #### [facility] [address] [place] [address] Dr. Ibis Jimenez Eosinophils/100 WBC (Bld) 6.4 % Normal 0.9-7.0 [facility] Comment on above: Performed By: #### A MM #### [facility] [address] [place] [address] Dr. Ibis Jimenez Erythrocyte distribution width (RBC) [Ratio] 12.8 % Normal 11.0-15.0 [facility] Comment on above: Performed By: #### A MM #### [facility] [address] [place] [address] Dr. Ibis Jimenez Hematocrit (Bld) [Volume fraction] 36.6 % Normal 36.0-48.0 [facility] Comment on above: Performed By: #### A MM #### [facility] [address] [place] [address] Dr. Ibis Jimenez Hemoglobin (Bld) [Mass/Vol] 12.5 g/dL Normal 12.0-16.0 [facility] Comment on above: Performed By: #### A MM #### [facility] [address] [place] [address] Dr. Ibis Jimenez IG # 0.02 10e3/ul Normal 0.00-0.03 [facility] Comment on above: Performed By: #### A MM #### [facility] [address] [place] [address] Dr. Ibis Jimenez IG % 0.3 % Normal 0.0-0.5 [facility] Comment on above: Performed By: #### A MM #### [facility] [address] [place] [address] Dr. Ibis Jimenez LYMPH # 2.0 103/ul Normal 1.2-3.8 [facility] Comment on above: Performed By: #### A MM #### [facility] [address] [place] [address] Dr. Ibis Jimenez Lymphocytes/100 WBC (Bld) 25.0 % Normal 20.5-60.0 [facility] Comment on above: Performed By: #### A MM #### [facility] [address] [place] [address] Dr. Ibis Jimenez MANUAL DIFF REQ NO Normal [facility] Comment on above: Performed By: #### A MM #### [facility] [address] [place] [address] Dr. Ibis Jimenez MCH (RBC) [Entitic mass] 29.5 pg Normal 26.7-34.0 [facility] Comment on above: Performed By: #### A MM #### [facility] [address] [place] [address] Dr. Ibis Jimenez MCHC (RBC) [Mass/Vol] 34.2 g/dL Normal 29.9-35.2 [facility] Comment on above: Performed By: #### A MM #### [facility] [address] [place] [address] Dr. Ibis Jimenez MCV (RBC) [Entitic vol] 86.3 fL Normal 81.0-99.0 [facility] Comment on above: Performed By: #### A MM #### [facility] [address] [place] [address] Dr. Ibis Jimenez MONO # 0.4 103/ul Normal 0.3-0.8 [facility] Comment on above: Performed By: #### A MM #### [facility] [address] [place] [address] Dr. Ibis Jimenez Monocytes/100 WBC (Bld) 5.6 % Normal 1.7-12.0 [facility] Comment on above: Performed By: #### A MM #### [facility] [address] [place] [address] Dr. Ibis Jimenez NEUT # 4.9 103/ul Normal 1.4-6.5 [facility] Comment on above: Performed By: #### A MM #### [facility] [address] [place] [address] Dr. Ibis Jimenez Neutrophils/100 WBC (Bld) 62.3 % Normal 43.0-75.0 [facility] Comment on above: Performed By: #### A MM #### [facility] [address] [place] [address] Dr. Ibis Jimenez Platelet mean volume (Bld) [Entitic vol] 9.5 fL Normal 9.5-13.5 [facility] Comment on above: Performed By: #### A MM #### [facility] [address] [place] [address] Dr. Ibis Jimenez PLT 246 103/ul Normal 150-450 [facility] Comment on above: Performed By: #### A MM #### [facility] [address] [place] [address] Dr. Ibis Jimenez RBC 4.24 106/ul Normal 4.20-5.40 [facility] Comment on above: Performed By: #### A MM #### [facility] [address] [place] [address] Dr. Ibis Jimenez WBC 7.8 103/ul Normal 4.0-11.0 [facility] Comment on above: Performed By: #### A MM #### [facility] [address] [place] [address] Dr. Ibis Jimenez CULTURE BLOODon 03-31-2022 Microscopic examination of blood, culture Culture Observations: NO GROWTH AT 5 DAYS. Normal [facility] Comment on above: Performed By: #### B LDCX2 #### [facility] [address] [place] [address] Dr. Ibis Jimenez Microscopic examination of blood, culture Culture Observations: NO GROWTH AT 5 DAYS. Normal [facility] Comment on above: Performed By: #### B MP #### [facility] [address] [place] [address] Dr. Ibis Jimenez LACTATE/LACTIC ACIDon 2022 Lactate [Moles/Vol] 2.8 mmol/L Critically high 0.4-1.9 [facility] Comment on above: Performed By: #### C VDTBH #### [facility] [address] [place] [address] Dr. Ibis Jimenez PROF 14(COMP METB)on 023 Albumin [Mass/Vol] 3.4 g/dL Normal 3.4-5.0 [facility] Comment on above: Performed By: #### B MP #### [facility] [address] [place] [address] Dr. Ibis Jimenez Albumin/Globulin [Mass ratio] 1.2 {ratio} Normal [facility] Comment on above: Performed By: #### B MP #### [facility] [address] [address] [address] Ibis Jimenez ALP [Catalytic activity/Vol] 85 U/L Normal 46-116 [facility] Comment on above: Performed By: #### B MP #### [facility] [address] [address] [address] Ibis Jimenez ALT [Catalytic activity/Vol] 18 U/L Normal 14-59 [facility] Comment on above: Performed By: #### B MP #### [facility] [address] [address] [address] Ibis Jimenez Anion gap [Moles/Vol] 13.2 mmol/L Normal [facility] Comment on above: Performed By: #### B MP #### [facility] [address] [place] [address] Dr. Ibis Jimenez AST [Catalytic activity/Vol] 11 U/L Critically low 15-37 [facility] Comment on above: Performed By: #### B MP #### [facility] [address] [address] [address] Ibis Jimenez Bilirubin [Mass/Vol] 0.2 mg/dL Normal 0.2-1.0 [facility] Comment on above: Performed By: #### B MP #### [facility] [address] [place] [address] Dr. Ibis Jimenez Calcium [Mass/Vol] 8.6 mg/dL Normal 8.5-10.1 [facility] Comment on above: Performed By: #### B MP #### [facility] [address] [address] [address] Ibis Jimenez Chloride [Moles/Vol] 105 mmol/L Normal 98-107 [facility] Comment on above: Performed By: #### B MP #### [facility] [address] [address] [address] Ibis Jimenez CO2 [Moles/Vol] 25.1 mmol/L Normal 21.0-32.0 [facility] Comment on above: Performed By: #### B MP #### [facility] [address] [address] [address] Ibis Jimenez Creatinine [Mass/Vol] 0.80 mg/dL Normal 0.55-1.02 [facility] Comment on above: Performed By: #### B MP #### [facility] [address] [address] [address] Ibis Jimenez EGFR-AF TURKISH >60 Normal >=60 [facility] Comment on above: Performed By: #### B MP #### [facility] [address] [address] [address] Ibis Jimenez EGFR-NON AF TURKISH >60 Normal >=60 [facility] Comment on above: Performed By: #### B MP #### [facility] [address] [place] [address] Dr. Ibis Jimenez Globulin (S) [Mass/Vol] 2.9 g/dL Normal [facility] Comment on above: Performed By: #### B MP #### [facility] [address] [place] [address] Dr. Ibis Jimenez Glucose [Mass/Vol] 99 mg/dL Normal 74-106 [facility] Comment on above: Performed By: #### B MP #### [facility] [address] [place] [address] Dr. Ibis Jimenez Potassium [Moles/Vol] 3.3 mmol/L Critically low 3.5-5.1 [facility] Comment on above: Performed By: #### B MP #### [facility] [address] [place] [address] Dr. Ibis Jimenez Protein [Mass/Vol] 6.3 g/dL Critically low 6.4-8.2 [facility] Comment on above: Performed By: #### B MP #### [facility] [address] [place] [address] Dr. Ibis Jimenez Sodium [Moles/Vol] 140 mmol/L Normal 136-145 [facility] Comment on above: Performed By: #### B MP #### [facility] [address] [place] [address] Dr. Ibis Jimenez Urea nitrogen [Mass/Vol] 10.0 mg/dL Normal 7.0-18.0 [facility] Comment on above: Performed By: #### B MP #### [facility] [address] [place] [address] Dr. Ibis Jimenez Urea nitrogen/Creatinine [Mass ratio] 12.5 mg/mg Normal [facility] Comment on above: Performed By: #### B MP #### [facility] [address] [place] [address] Dr. Ibis Jimenez CBC AUTO DIFFon 01-14-2022 BASO # 0.0 103/ul Normal 0.0-0.1 [facility] Comment on above: Performed By: #### A MM #### [facility] [address] [place] [address] Dr. Ibis Jimenez Basophils/100 WBC (Bld) 0.3 % Normal 0.2-2.0 [facility] Comment on above: Performed By: #### A MM #### [facility] [address] [place] [address] Dr. Ibis Jimenez EO # 0.2 103/ul Normal 0.0-0.7 [facility] Comment on above: Performed By: #### A MM #### [facility] [address] [place] [address] Dr. Ibis Jimenez Eosinophils/100 WBC (Bld) 2.7 % Normal 0.9-7.0 [facility] Comment on above: Performed By: #### A MM #### [facility] [address] [place] [address] Dr. Ibis Jimenez Erythrocyte distribution width (RBC) [Ratio] 13.2 % Normal 11.0-15.0 [facility] Comment on above: Performed By: #### A MM #### [facility] [address] [place] [address] Dr. Ibis Jimenez Hematocrit (Bld) [Volume fraction] 35.7 % Critically low 36.0-48.0 [facility] Comment on above: Performed By: #### A MM #### [facility] [address] [place] [address] Dr. Ibis Jimenez Hemoglobin (Bld) [Mass/Vol] 12.2 g/dL Normal 12.0-16.0 [facility] Comment on above: Performed By: #### A MM #### [facility] [address] [place] [address] Dr. Ibis Jimenez IG # 0.04 10e3/ul Critically high 0.00-0.03 [facility] Comment on above: Performed By: #### A MM #### [facility] [address] [place] [address] Dr. Ibis Jimenez IG % 0.5 % Normal 0.0-0.5 [facility] Comment on above: Performed By: #### A MM #### [facility] [address] [place] [address] Dr. Ibis Jimenez LYMPH # 2.1 103/ul Normal 1.2-3.8 [facility] Comment on above: Performed By: #### A MM #### [facility] [address] [place] [address] Dr. Ibis Jimenez Lymphocytes/100 WBC (Bld) 27.3 % Normal 20.5-60.0 [facility] Comment on above: Performed By: #### A MM #### [facility] [address] [place] [address] Dr. Ibis Jimenez MANUAL DIFF REQ NO Normal [facility] Comment on above: Performed By: #### A MM #### [facility] [address] [place] [address] Dr. Ibis Jimenez MCH (RBC) [Entitic mass] 29.0 pg Normal 26.7-34.0 [facility] Comment on above: Performed By: #### A MM #### [facility] [address] [place] [address] Dr. Ibis Jimenez MCHC (RBC) [Mass/Vol] 34.2 g/dL Normal 29.9-35.2 [facility] Comment on above: Performed By: #### A MM #### [facility] [address] [place] [address] Dr. Ibis Jimenez MCV (RBC) [Entitic vol] 84.8 fL Normal 81.0-99.0 [facility] Comment on above: Performed By: #### A MM #### [facility] [address] [place] [address] Dr. Ibis Jimenez MONO # 0.7 103/ul Normal 0.3-0.8 [facility] Comment on above: Performed By: #### A MM #### [facility] [address] [place] [address] Dr. Ibis Jimenez Monocytes/100 WBC (Bld) 8.7 % Normal 1.7-12.0 [facility] Comment on above: Performed By: #### A MM #### [facility] [address] [place] [address] Dr. Ibis Jimenez NEUT # 4.7 103/ul Normal 1.4-6.5 [facility] Comment on above: Performed By: #### A MM #### [facility] [address] [place] [address] Dr. Ibis Jimenez Neutrophils/100 WBC (Bld) 60.5 % Normal 43.0-75.0 [facility] Comment on above: Performed By: #### A MM #### [facility] [address] [place] [address] Dr. Ibis Jimenez Platelet mean volume (Bld) [Entitic vol] 9.6 fL Normal 9.5-13.5 [facility] Comment on above: Performed By: #### A MM #### [facility] [address] [place] [address] Dr. Ibis Jimenez PLT 212 103/ul Normal 150-450 [facility] Comment on above: Performed By: #### A MM #### [facility] [address] [place] [address] Dr. Ibis Jimenez RBC 4.21 106/ul Normal 4.20-5.40 [facility] Comment on above: Performed By: #### A MM #### [facility] [address] [place] [address] Dr. Ibis Jimenez WBC 7.7 103/ul Normal 4.0-11.0 [facility] Comment on above: Performed By: #### A MM #### [facility] [address] ABD/PELV W CONon 01-15-[address] ABD/PELV W CON EXAM: CT ABD/PELV [...] TONY DAHL Date: 2022-01-14 20:01 Normal [facility] URINE PROFILEon 2 Bilirubin Ql (U) Negative Normal NEGATIVE [facility] Comment on above: Performed By: #### A CET, SALYC #### [facility] [address] [place] [address] Dr. Ibis Jimenez Clarity (U) CLEAR Normal CLEAR [facility] Comment on above: Performed By: #### A CET, SALYC #### [facility] [address] [place] [address] Dr. Ibis Jimenez Color (U) LT. YELLOW Normal YELLOW [facility] Comment on above: Performed By: #### A CET, SALYC #### [facility] [address] [place] [address] Dr. Ibis RODRIGUEZ A micrscopic examination will be performed if indicated. Normal [facility] Comment on above: Performed By: #### A CET, SALYC #### [facility] [address] [place] [address] Dr. Ibis Jimenez Glucose Ql (U) Negative Normal NEGATIVE [facility] Comment on above: Performed By: #### A CET, SALYC #### [facility] [address] [place] [address] Dr. Ibis Jimenez Hemoglobin Ql (U) Negative Normal NEGATIVE [facility] Comment on above: Performed By: #### A CET, SALYC #### [facility] [address] [place] [address] Dr. Ibis Jimenez Ketones Ql (U) Negative Normal NEGATIVE [facility] Comment on above: Performed By: #### A CET, SALYC #### [facility] [address] [place] [address] Dr. Ibis Jimenez LEUKOCYTES TRACE Abnormal NEGATIVE [facility] Comment on above: Performed By: #### A CET, SALYC #### [facility] [address] [place] [address] Dr. Ibis Jimenez Nitrite Ql (U) Negative Normal NEGATIVE [facility] Comment on above: Performed By: #### A CET, SALYC #### [facility] [address] [place] [address] Dr. Ibis Jimenez pH (U) 5.5 [pH] Normal 5-9 [facility] Comment on above: Performed By: #### A CET, SALYC #### [facility] [address] [place] [address] Dr. Ibis Jimenez SPEC GRAVITY 1.025 Normal 1.005-<=1.02 5 [facility] Comment on above: Performed By: #### A CET, SALYC #### [facility] [address] [place] [address] Dr. Ibis Jimenez UA PROTEIN Negative Normal NEGATIVE/ TRACE [facility] Comment on above: Performed By: #### A CET, SALYC #### [facility] [address] [place] [address] Dr. Ibis Jimenez UR MICRO IND INDICATED Normal [facility] Comment on above: Performed By: #### A CET, SALYC #### [facility] [address] [place] [address] Dr. Ibis Jimenez Urobilinogen Qn (U) 0.2 {Dinorah'U}/dL Normal 0.2 - 1. 0 [facility] Comment on above: Performed By: #### A CET, SALYC #### [facility] [address] [place] [address] Dr. Ibis Jimenez URon 01-14-2022 , QUAL Negative Normal NEGATIVE [facility] Comment on above: Performed By: #### A CET, SALYC #### [facility] [address] [place] [address] Dr. Ibis Jimenez PROF CHEM 8 (BAS METB)on Anion gap [Moles/Vol] 9.9 mmol/L Normal [facility] Comment on above: Performed By: #### B MP #### [facility] [address] [place] [address] Dr. Ibis Jimenez Calcium [Mass/Vol] 8.6 mg/dL Normal 8.5-10.1 [facility] Comment on above: Performed By: #### B MP #### [facility] [address] [place] [address] Dr. Ibis Jimenez Chloride [Moles/Vol] 105 mmol/L Normal 98-107 [facility] Comment on above: Performed By: #### B MP #### [facility] [address] [address] [address] Ibis Jimenez CO2 [Moles/Vol] 27.5 mmol/L Normal 21.0-32.0 [facility] Comment on above: Performed By: #### B MP #### [facility] [address] [place] [address] Dr. Ibis Jimenez Creatinine [Mass/Vol] 0.70 mg/dL Normal 0.55-1.02 [facility] Comment on above: Performed By: #### B MP #### [facility] [address] [place] [address] Dr. Ibis Jimenez EGFR-AF TURKISH >60 Normal >=60 [facility] Comment on above: Performed By: #### B MP #### [facility] [address] [place] [address] Dr. Ibis Jimenez EGFR-NON AF TURKISH >60 Normal >=60 [facility] Comment on above: Performed By: #### B MP #### [facility] [address] [place] [address] Dr. Ibis Jimenez Glucose [Mass/Vol] 83 mg/dL Normal 74-106 [facility] Comment on above: Performed By: #### B MP #### [facility] [address] [place] [address] Dr. Ibis Jimenez Potassium [Moles/Vol] 4.4 mmol/L Normal 3.5-5.1 [facility] Comment on above: Performed By: #### B MP #### [facility] [address] [place] [address] Dr. Ibis Jimenez Sodium [Moles/Vol] 138 mmol/L Normal 136-145 [facility] Comment on above: Performed By: #### B MP #### [facility] [address] [place] [address] Dr. Ibis Jimenez Urea nitrogen [Mass/Vol] 13.0 mg/dL Normal 7.0-18.0 [facility] Comment on above: Performed By: #### B MP #### [facility] [address] [place] [address] Dr. Ibis Jimenez Urea nitrogen/Creatinine [Mass ratio] 18.6 mg/mg Normal [facility] Comment on above: Performed By: #### B MP #### [facility] [address] [place] [address] Dr. Ibis Jimenez URINE MICROSCOPIC ONLYon BACTERIA NONE SEEN Normal NONE SEEN [facility] Comment on above: Performed By: #### A CET, SALYC #### [facility] [address] [place] [address] Dr. Ibis Jimenez Bacteria identified Cx Nom (U) NOT INDICATED Normal [facility] Comment on above: Performed By: #### A CET, SALYC #### [facility] [address] [place] [address] Dr. Ibis Jimenez CAST NONE SEEN Normal NONE SEEN [facility] Comment on above: Performed By: #### A CET, SALYC #### [facility] [address] [place] [address] Dr. Ibis Jimenez Crystals LM Nom (Urine sed) NONE SEEN Normal NONE SEEN [facility] Comment on above: Performed By: #### A CET, SALYC #### [facility] [address] [place] [address] Dr. Ibis Jimenez Epithelial cells LM Ql (Urine sed) FEW Abnormal NONE SEEN /RARE [facility] Comment on above: Performed By: #### A CET, SALYC #### [facility] [address] [place] [address] Dr. Ibis Jimenez MUCOUS NONE SEEN Normal NONE SEEN [facility] Comment on above: Performed By: #### A CET, SALYC #### [facility] [address] [place] [address] Dr. Ibis Jimenez RBC NONE SEEN Abnormal 0-2 [facility] Comment on above: Performed By: #### A CET, SALYC #### [facility] [address] [place] [address] Dr. Ibis Jimenez WBC NONE SEEN Normal NONE SEEN [facility] Comment on above: Performed By: #### A CET, SALYC #### [facility] [address] [place] [address] Dr. Ibis Jimenez CBC AUTO DIFFon 01-07-2022 BASO # 0.0 103/ul Normal 0.0-0.1 [facility] Comment on above: Performed By: #### A CET, SALYC #### [facility] [address] [place] [address] Dr. Ibis Jimenez Basophils/100 WBC (Bld) 0.2 % Normal 0.2-2.0 [facility] Comment on above: Performed By: #### A CET, SALYC #### [facility] [address] [place] [address] Dr. Ibis Jimenez EO # 0.0 103/ul Normal 0.0-0.7 [facility] Comment on above: Performed By: #### A CET, SALYC #### [facility] [address] [place] [address] Dr. Ibis Jimenez Eosinophils/100 WBC (Bld) 0.4 % Critically low 0.9-7.0 [facility] Comment on above: Performed By: #### A CET, SALYC #### [facility] [address] [place] [address] Dr. Ibis Jimenez Erythrocyte distribution width (RBC) [Ratio] 13.2 % Normal 11.0-15.0 [facility] Comment on above: Performed By: #### A CET, SALYC #### [facility] [address] [place] [address] Dr. Ibis Jimenez Hematocrit (Bld) [Volume fraction] 39.7 % Normal 36.0-48.0 [facility] Comment on above: Performed By: #### A CET, SALYC #### [facility] [address] [place] [address] Dr. Ibis Jimenez Hemoglobin (Bld) [Mass/Vol] 13.4 g/dL Normal 12.0-16.0 [facility] Comment on above: Performed By: #### A CET, SALYC #### [facility] [address] [place] [address] Dr. Ibis Jimenez IG # 0.06 10e3/ul Critically high 0.00-0.03 [facility] Comment on above: Performed By: #### A CET, SALYC #### [facility] [address] [address] [address] Ibis Jimenez IG % 0.5 % Normal 0.0-0.5 [facility] Comment on above: Performed By: #### A CET, SALYC #### [facility] [address] [address] [address] Ibis Jimenez LYMPH # 2.6 103/ul Normal 1.2-3.8 [facility] Comment on above: Performed By: #### A CET, SALYC #### [facility] [address] [place] [address] Dr. Ibis Jimenez Lymphocytes/100 WBC (Bld) 23.8 % Normal 20.5-60.0 [facility] Comment on above: Performed By: #### A CET, SALYC #### [facility] [address] [place] [address] Dr. Ibis Jimenez MANUAL DIFF REQ NO Normal [facility] Comment on above: Performed By: #### A CET, SALYC #### [facility] [address] [place] [address] Dr. Ibis Jimenez MCH (RBC) [Entitic mass] 28.8 pg Normal 26.7-34.0 [facility] Comment on above: Performed By: #### A CET, SALYC #### [facility] [address] [place] [address] Dr. Ibis Jimenez MCHC (RBC) [Mass/Vol] 33.8 g/dL Normal 29.9-35.2 [facility] Comment on above: Performed By: #### A CET, SALYC #### [facility] [address] [place] [address] Dr. Ibis Jimenez MCV (RBC) [Entitic vol] 85.2 fL Normal 81.0-99.0 [facility] Comment on above: Performed By: #### A CET, SALYC #### [facility] [address] [place] [address] Dr. Ibis Jimenez MONO # 0.8 103/ul Normal 0.3-0.8 [facility] Comment on above: Performed By: #### A CET, SALYC #### [facility] [address] [place] [address] Dr. Ibis Jimenez Monocytes/100 WBC (Bld) 7.7 % Normal 1.7-12.0 [facility] Comment on above: Performed By: #### A CET, SALYC #### [facility] [address] [place] [address] Dr. Ibis Jimenez NEUT # 7.4 103/ul Critically high 1.4-6.5 [facility] Comment on above: Performed By: #### A CET, SALYC #### [facility] [address] [place] [address] Dr. Ibis Jimenez Neutrophils/100 WBC (Bld) 67.4 % Normal 43.0-75.0 [facility] Comment on above: Performed By: #### A CET, SALYC #### [facility] [address] [place] [address] Dr. Ibis Jimenez Platelet mean volume (Bld) [Entitic vol] 9.8 fL Normal 9.5-13.5 [facility] Comment on above: Performed By: #### A CET, SALYC #### [facility] [address] [place] [address] Dr. Ibis Jimenez PLT 261 103/ul Normal 150-450 [facility] Comment on above: Performed By: #### A CET, SALYC #### [facility] [address] [place] [address] Dr. Ibis Jimenez RBC 4.66 106/ul Normal 4.20-5.40 [facility] Comment on above: Performed By: #### A CET, SALYC #### [facility] [address] [place] [address] Dr. Ibis Jimenez WBC 10.9 103/ul Normal 4.0-11.0 [facility] Comment on above: Performed By: #### A CET, SALYC #### [facility] [address] [place] [address] Dr. Ibis Jimenez PROF CHEM 8 (BAS METB)on Anion gap [Moles/Vol] 14.1 mmol/L Normal [facility] Comment on above: Performed By: #### B MP #### [facility] [address] [place] [address] Dr. Ibis Jimenez Calcium [Mass/Vol] 8.5 mg/dL Normal 8.5-10.1 [facility] Comment on above: Performed By: #### B MP #### [facility] [address] [address] [address] Ibis Jimenez Chloride [Moles/Vol] 103 mmol/L Normal 98-107 [facility] Comment on above: Performed By: #### B MP #### [facility] [address] [place] [address] Dr. Ibis Jimenez CO2 [Moles/Vol] 22.5 mmol/L Normal 21.0-32.0 [facility] Comment on above: Performed By: #### B MP #### [facility] [address] [place] [address] Dr. Ibis Jimenez Creatinine [Mass/Vol] 0.64 mg/dL Normal 0.55-1.02 [facility] Comment on above: Performed By: #### B MP #### [facility] [address] [place] [address] Dr. Ibis Jimenez EGFR-AF TURKISH >60 Normal >=60 [facility] Comment on above: Performed By: #### B MP #### [facility] [address] [place] [address] Dr. Ibis Jimenez EGFR-NON AF TURKISH >60 Normal >=60 [facility] Comment on above: Performed By: #### B MP #### [facility] [address] [address] [address] Ibis Jimenez Glucose [Mass/Vol] 141 mg/dL Critically high 74-106 [facility] Comment on above: Performed By: #### B MP #### [facility] [address] [place] [address] Dr. Ibis Jimenez Potassium [Moles/Vol] 3.6 mmol/L Normal 3.5-5.1 [facility] Comment on above: Performed By: #### B MP #### [facility] [address] [place] [address] Dr. Ibis Jimenez Sodium [Moles/Vol] 136 mmol/L Normal 136-145 [facility] Comment on above: Performed By: #### B MP #### [facility] [address] [place] [address] Dr. Ibis Jimenez Urea nitrogen [Mass/Vol] 16.0 mg/dL Normal 7.0-18.0 [facility] Comment on above: Performed By: #### B MP #### [facility] [address] [place] [address] Dr. Ibis Jimenez Urea nitrogen/Creatinine [Mass ratio] 25.0 mg/mg Normal [facility] Comment on above: Performed By: #### B MP #### [facility] [address] [place] [address] Dr. Ibis Jimenez CBC AUTO DIFFon 11-04-2021 BASO # 0.0 103/ul Normal 0.0-0.1 [facility] Comment on above: Performed By: #### A CET, SALYC #### [facility] [address] [place] [address] Dr. Ibis Jimenez Basophils/100 WBC (Bld) 0.4 % Normal 0.2-2.0 [facility] Comment on above: Performed By: #### A CET, SALYC #### [facility] [address] [place] [address] Dr. Ibis Jimenez EO # 0.2 103/ul Normal 0.0-0.7 [facility] Comment on above: Performed By: #### A CET, SALYC #### [facility] [address] [place] [address] Dr. Ibis Jimenez Eosinophils/100 WBC (Bld) 4.1 % Normal 0.9-7.0 [facility] Comment on above: Performed By: #### A CET, SALYC #### [facility] [address] [place] [address] Dr. Ibis Jimenez Erythrocyte distribution width (RBC) [Ratio] 13.2 % Normal 11.0-15.0 [facility] Comment on above: Performed By: #### A CET, SALYC #### [facility] [address] [place] [address] Dr. Ibis Jimenez Hematocrit (Bld) [Volume fraction] 34.3 % Critically low 36.0-48.0 [facility] Comment on above: Performed By: #### A CET, SALYC #### [facility] [address] [place] [address] Dr. Ibis Jimenez Hemoglobin (Bld) [Mass/Vol] 11.5 g/dL Critically low 12.0-16.0 [facility] Comment on above: Performed By: #### A CET, SALYC #### [facility] [address] [place] [address] Dr. Ibis Jimenez IG # 0.01 10e3/ul Normal 0.00-0.03 [facility] Comment on above: Performed By: #### A CET, SALYC #### [facility] [address] [place] [address] Dr. Ibis Jimenez IG % 0.2 % Normal 0.0-0.5 [facility] Comment on above: Performed By: #### A CET, SALYC #### [facility] [address] [place] [address] Dr. Ibis Jimenez LYMPH # 1.5 103/ul Normal 1.2-3.8 [facility] Comment on above: Performed By: #### A CET, SALYC #### [facility] [address] [place] [address] Dr. Ibis Jimenez Lymphocytes/100 WBC (Bld) 26.4 % Normal 20.5-60.0 [facility] Comment on above: Performed By: #### A CET, SALYC #### [facility] [address] [place] [address] Dr. Ibis Jimenez MANUAL DIFF REQ NO Normal [facility] Comment on above: Performed By: #### A CET, SALYC #### [facility] [address] [place] [address] Dr. Ibis Jimenez MCH (RBC) [Entitic mass] 28.8 pg Normal 26.7-34.0 [facility] Comment on above: Performed By: #### A CET, SALYC #### [facility] [address] [place] [address] Dr. Ibis Jimenez MCHC (RBC) [Mass/Vol] 33.5 g/dL Normal 29.9-35.2 [facility] Comment on above: Performed By: #### A CET, SALYC #### [facility] [address] [place] [address] Dr. Ibis Jimenez MCV (RBC) [Entitic vol] 86.0 fL Normal 81.0-99.0 [facility] Comment on above: Performed By: #### A CET, SALYC #### [facility] [address] [place] [address] Dr. Ibis Jimenez MONO # 0.5 103/ul Normal 0.3-0.8 [facility] Comment on above: Performed By: #### A CET, SALYC #### [facility] [address] [place] [address] Dr. Ibis Jimenez Monocytes/100 WBC (Bld) 8.2 % Normal 1.7-12.0 [facility] Comment on above: Performed By: #### A CET, SALYC #### [facility] [address] [place] [address] Dr. Ibis Jimenez NEUT # 3.4 103/ul Normal 1.4-6.5 [facility] Comment on above: Performed By: #### A CET, SALYC #### [facility] [address] [place] [address] Dr. Ibis Jimenez Neutrophils/100 WBC (Bld) 60.7 % Normal 43.0-75.0 [facility] Comment on above: Performed By: #### A CET, SALYC #### [facility] [address] [place] [address] Dr. Ibsi Jimenez Platelet mean volume (Bld) [Entitic vol] 9.9 fL Normal 9.5-13.5 [facility] Comment on above: Performed By: #### A CET, SALYC #### [facility] [address] [address] [address] Ibis Jimenez PLT 222 103/ul Normal 150-450 [facility] Comment on above: Performed By: #### A CET, SALYC #### [facility] [address] [address] [address] Ibis Jimenez RBC 3.99 106/ul Critically low 4.20-5.40 [facility] Comment on above: Performed By: #### A CET, SALYC #### [facility] [address] [address] [address] Ibis Jimenez WBC 5.6 103/ul Normal 4.0-11.0 [facility] Comment on above: Performed By: #### A CET, SALYC #### [facility] [address] [place] [address] Dr. Ibis Jimenez PROF CHEM 8 (BAS METB)on Anion gap [Moles/Vol] 10.5 mmol/L Normal [facility] Comment on above: Performed By: #### B MP #### [facility] [address] [place] [address] Dr. Ibis Jimenez Calcium [Mass/Vol] 8.8 mg/dL Normal 8.5-10.1 [facility] Comment on above: Performed By: #### B MP #### [facility] [address] [place] [address] Dr. Ibis Jimenez Chloride [Moles/Vol] 105 mmol/L Normal 98-107 [facility] Comment on above: Performed By: #### B MP #### [facility] [address] [place] [address] Dr. Ibis Jimenez CO2 [Moles/Vol] 24.9 mmol/L Normal 21.0-32.0 [facility] Comment on above: Performed By: #### B MP #### [facility] [address] [place] [address] Dr. Ibis Jimenez Creatinine [Mass/Vol] 0.71 mg/dL Normal 0.55-1.02 [facility] Comment on above: Performed By: #### B MP #### [facility] [address] [address] [address] Ibis Jimenez EGFR-AF TURKISH >60 Normal >=60 [facility] Comment on above: Performed By: #### B MP #### [facility] [address] [address] [address] Ibis Jimenez EGFR-NON AF TURKISH >60 Normal >=60 [facility] Comment on above: Performed By: #### B MP #### [facility] [address] [address] [address] Ibis Jimenez Glucose [Mass/Vol] 103 mg/dL Normal 74-106 [facility] Comment on above: Performed By: #### B MP #### [facility] [address] [address] [address] Ibis Jimenez Potassium [Moles/Vol] 3.4 mmol/L Critically low 3.5-5.1 [facility] Comment on above: Performed By: #### B MP #### [facility] [address] [address] [address] Ibis Jimenez Sodium [Moles/Vol] 137 mmol/L Normal 136-145 [facility] Comment on above: Performed By: #### B MP #### [facility] [address] [address] [address] Ibis Jimenez Urea nitrogen [Mass/Vol] 17.0 mg/dL Normal 7.0-18.0 [facility] Comment on above: Performed By: #### B MP #### [facility] [address] [address] [address] Ibis Jimenez Urea nitrogen/Creatinine [Mass ratio] 23.9 mg/mg Normal [facility] Comment on above: Performed By: #### B MP #### [facility] [address] [address] [address] Ibis Jimenez Basic Metab w/rfx MGon 10-20 (cont.) Normal [facility] Comment on above: Result Comment: Aver age GFR for 20-29 years old: 116 mL/min/1.73sq m Chronic Kidney Disease: <60 mL/min/1.73sq m Kidney failure: <15 mL/min/1.73sq m eGFR calculated using average adult body mass. Additional eGFR calculator available at: http://www.WineNice/multiple_crcl_2012.htm Performed By: #### B MPX #### [address] [address] Substitute Nurse: Tavon Nicole MD Anion gap [Moles/Vol] 10 mmol/L Normal 9-17 [facility] Comment on above: Performed By: #### B MPX #### [address] [address] Substitute Nurse: Tavon Nicole MD Calcium [Mass/Vol] 7.8 mg/dL Low 8.6-10.4 [facility] Comment on above: Performed By: #### B MPX #### [address] [address] Substitute Nurse: Tavon Nicole MD Chloride [Moles/Vol] 109 mmol/L High 98-107 [facility] Comment on above: Performed By: #### B MPX #### [address] [address] Substitute Nurse: Tavon Nicole MD CO2 [Moles/Vol] 20 mmol/L Normal 20-31 [facility] Comment on above: Performed By: #### B MPX #### [address] [address] Substitute Nurse: Tavon Nicole MD Creatinine [Mass/Vol] 0.45 mg/dL Low 0.50-0.90 [facility] Comment on above: Performed By: #### B MPX #### [address] [address] Substitute Nurse: Tavon Nicole MD GFR, Amer >60 Normal >60 [facility] Comment on above: Performed By: #### B MPX #### [facility] [place] [address] Substitute Nurse: Tavon Nicole MD GFR,non Amer >60 Normal >60 [facility] Comment on above: Performed By: #### B MPX #### [facility] [employer] [address] [place] [address] Substitute Nurse: Tavon Nicole MD Glucose [Mass/Vol] 84 mg/dL Normal 70-99 [facility] Comment on above: Performed By: #### B MPX #### [facility] [employer] [address] [place] [address] Substitute Nurse: Tavon Nicole MD Potassium [Moles/Vol] 4.1 mmol/L Normal 3.7-5.3 [facility] Comment on above: Result Comment: SPEC IMEN SLIGHTLY HEMOLYZED, RESULTS MAY BE ADVERSELY AFFECTED. Performed By: #### B MPX #### [facility] [employer] [address] [place] [address] Substitute Nurse: Tavon Nicole MD Sodium [Moles/Vol] 139 mmol/L Normal 135-144 [facility] Comment on above: Performed By: #### B MPX #### [facility] [address] [place] [address] Substitute Nurse: Tavon Nicole MD Urea nitrogen [Mass/Vol] 8 mg/dL Normal 6-20 [facility] Comment on above: Performed By: #### B MPX #### [facility] [employer] [address] [place] [phone] Substitute Nurse: Tavon Nicole MD Basic Metabolic Panel w/ Ref rossi to MGon 10-20-2021 Anion gap [Moles/Vol] 10 mmol/L 9 - 17 mmol/L [facility] Calcium [Mass/Vol] 7.8 mg/dL Low 8.6 - 10. 4 mg/dL [facility] Chloride [Moles/Vol] 109 mmol/L High 98 - 10 7 mmol/L [facility] CO2 [Moles/Vol] 20 mmol/L 20 - 31 mmol/L [facility] Creatinine [Mass/Vol] 0.45 mg/dL Low 0.5 - 0.9 mg/dL [facility] GFR >60 60 - PI NF mL/min [facility] GFR Non- >60 60 - PINF mL/min [facility] GFR/1.73 sq M.predicted MDRD (S/P/Bld) [Vol rate/Area] [facility] Comment on above: Average GFR for 20-2 9 years old: 116 mL/min/1.73sq m Chronic Kidney Disease: <60 mL/min/1.73sq m Kidney failure: <15 mL/min/1.73sq m eGFR calculated using average adult body mass. Additional eGFR calculator available at: http://www.WineNice/multiple_crcl_2012.htm Glucose [Mass/Vol] 84 mg/dL 70 - 99 mg/dL [facility] Interpretation and review of laboratory results Abnormal [facility] Potassium [Moles/Vol] 4.1 mmol/L 3.7 - 5.3 mmol/L [facility] Comment on above: SPECIMEN SLIGHTLY HE MOLYZED, RESULTS MAY BE ADVERSELY AFFECTED. Sodium [Moles/Vol] 139 mmol/L 135 - 144 mmol/L [facility] Urea nitrogen (BldV) [Mass/Vol] 8 mg/dL 6 - 20 mg/dL [facility] CBC with Auto Differentialon 10-20-2021 Absolute Eos # 0.15 [facility] Absolute Immature Granulocyte [facility] Absolute Lymph # 1.48 [facility] Absolute Villalba # 0.28 [facility] Basophils (Bld) [#/Vol] 0.03 10*3/uL [facility] Basophils/100 WBC (Bld) 1 % 0 - 2 % B ON [facility] Eosinophils/100 WBC (Bld) 3 % 1 - 4 % [facility] Hematocrit (Bld) [Volume fraction] 35.5 % Low 36.3 - 47.1 % [facility] Hemoglobin (Bld) [Mass/Vol] 11.3 g/dL Low 11.9 - 15.1 g/dL [facility] Immature granulocytes/100 WBC (Bld) 0 % 0 [facility] Interpretation and review of laboratory results Abnormal [facility] Lymphocytes/100 WBC (Bld) 34 % 24 - 43 % [facility] MCH (RBC) [Entitic mass] 27.9 pg 25.2 - 33.5 pg [facility] MCHC (RBC) [Mass/Vol] 31.8 g/dL 28.4 - 34.8 g/dL [facility] MCV (RBC) [Entitic vol] 87.7 fL 82.6 - 102.9 fL [facility] Monocytes/100 WBC (Bld) 6 % 3 - 12 % B [facility] NRBC Automated 0.0 0.0 per 100 WBC [facility] Platelet distribution width (Bld) [Ratio] 12.9 % 11.8 - 14.4 % [facility] Platelets (Bld) [#/Vol] See Reflexed IPF Result [facility] RBC (Bld) [#/Vol] 4.05 10*6/uL 3.95 - 5.1 1 m/uL [facility] Segmented neutrophils/100 WBC (Bld) 55 % 36 - 65 % [facility] Segs Absolute 2.42 [facility] WBC (Bld) [#/Vol] 4.4 10*3/uL [facility] CBC with Diffon 10-20-2021 Abs. Basophil 0.03 k/uL Normal 0.00-0.20 [facility] Comment on above: Performed By: #### C DP, IPF #### [facility] [address] [place] [address] Substitute Nurse: Tavon Nicole MD Abs.Imm.Granulocyte <0.03 Normal 0.00-0.30 [facility] Comment on above: Performed By: #### C DP, IPF #### [address] [address] Substitute Nurse: Tavon Nicole MD Abs.Neutrophil (Seg) 2.42 k/uL Normal 1.50-8.10 [facility] Comment on above: Performed By: #### C DP, IPF #### [address] [address] Substitute Nurse: Tavon Nicole MD Basophils/100 WBC (Bld) 1 % Normal 0-2 [facility] Comment on above: Performed By: #### C DP, IPF #### [address] [address] Substitute Nurse: Tavon Nicole MD Eosinophils (Bld) [#/Vol] 0.15 10*3/uL Normal 0.00-0.44 [facility] Comment on above: Performed By: #### C DP, IPF #### [address] [address] Substitute Nurse: Tavon Nicole MD Eosinophils/100 WBC (Bld) 3 % Normal 1-4 [facility] Comment on above: Performed By: #### C DP, IPF #### [address] [address] Substitute Nurse: Tavon Nicole MD Immature granulocytes/100 WBC (Bld) 0 % Normal 0 [facility] Comment on above: Performed By: #### C DP, IPF #### [address] [address] Substitute Nurse: Tavon Nicole MD Lymphocytes (Bld) [#/Vol] 1.48 10*3/uL Normal 1.10-3.70 [facility] Comment on above: Performed By: #### C DP, IPF #### [address] [address] Substitute Nurse: Tavon Nicole MD Lymphocytes/100 WBC (Bld) 34 % Normal 24-43 [facility] Comment on above: Performed By: #### C DP, IPF #### [address] [address] Substitute Nurse: Tavon Nicole MD Monocytes (Bld) [#/Vol] 0.28 10*3/uL Normal 0.10-1.20 [facility] Comment on above: Performed By: #### C DP, IPF #### [address] [address] Substitute Nurse: Tavon Nicole MD Monocytes/100 WBC (Bld) 6 % Normal 3-12 [facility] Comment on above: Performed By: #### C DP, IPF #### [address] [address] Substitute Nurse: Tavon Nicole MD Neutrophil (Seg) 55 % Normal 36-65 [facility] Comment on above: Performed By: #### C DP, IPF #### [address] [address] Substitute Nurse: Tavon Nicole MD Erythrocyte distribution width (RBC) [Ratio] 12.9 % Normal 11.8-14.4 [facility] Comment on above: Performed By: #### C DP, IPF #### [address] [address] Substitute Nurse: Tavon Nicole MD Hematocrit (Bld) [Volume fraction] 35.5 % Low 36.3-47.1 [facility] Comment on above: Performed By: #### C DP, IPF #### [address] [address] Substitute Nurse: Tavon Nicole MD Hemoglobin (Bld) [Mass/Vol] 11.3 g/dL Low 11.9-15.1 [facility] Comment on above: Performed By: #### C DP, IPF #### [address] [address] Substitute Nurse: Tavon Nicole MD MCH (RBC) [Entitic mass] 27.9 pg Normal 25.2-33.5 [facility] Comment on above: Performed By: #### C DP, IPF #### [address] [address] Substitute Nurse: Tavon Nicole MD MCHC (RBC) [Mass/Vol] 31.8 g/dL Normal 28.4-34.8 [facility] Comment on above: Performed By: #### C DP, IPF #### [address] [address] Substitute Nurse: Tavon Nicole MD MCV (RBC) [Entitic vol] 87.7 fL Normal 82.6-102.9 [facility] Comment on above: Performed By: #### C DP, IPF #### [address] [address] Substitute Nurse: Tavon Nicole MD NRBC Automated 0.0 per 100 WBC Normal 0.0 [facility] Comment on above: Performed By: #### C DP, IPF #### [place] [address] Substitute Nurse: Tavon Nicole MD Platelet Count See Reflexed IPF Result Normal 138-453 [facility] Comment on above: Performed By: #### C DP, IPF #### [place] [address] Substitute Nurse: Tavon Nicole MD RBC (Bld) [#/Vol] 4.05 10*6/uL Normal 3.95-5.11 [facility] Comment on above: Performed By: #### C DP, IPF #### [address] [place] [address] Substitute Nurse: Tavon Nicole MD WBC (Bld) [#/Vol] 4.4 10*3/uL Normal 3.5-11.3 [facility] Comment on above: Performed By: #### C DP, IPF #### [facility] [employer] [address] [place] [address] Substitute Nurse: Tavon Nicole MD EEG video monitoringon 10-20 Raiza Land MD 10/20/2021 12:11 PM Referring physician: Chris Blanchard [employer] Date:10/20/2021 Start Time:10/19/2021 @1258 End Time: 10/20/2021 @ 1200 Indication Patient with recurrent events Introduction This continuous video-EEG was acquired using a [employer] workstation at 256 samples/s. Electrodes were placed [...] Board Certified. Neurology Board Certified. Electronically Signed [employer] Work Phone: EEG video monitoringOrdered By: Raiza Land on 10-20-2021 [facility] [employer] Work Phone: Immature Platelet Fractionon 10-20-2021 Platelet, Fluorescence Platelet clumps present, count appears adequate. [facility] [employer] [facility] [employer] PLT, Immature Fract.on 10-20 Platelet, Fluoresc. Platelet clumps present, count appears adequate. Normal 138-453 [facility] Comment on above: Performed By: #### C DP, IPF #### [facility] [address] [place] [phone] Substitute Nurse: Tavon Nicole MD PROLACTINon 10-20-2021 Prolactin 41.7 ng/mL Critically high 4.8-23.3 [facility] Comment on above: Performed By: #### C VDTBH #### [facility] [address] [place] [address] Dr. Ibis Jimenez CBCon 10-19-2021 Erythrocyte distribution width (RBC) [Ratio] 12.9 % Normal 11.8-14.4 [facility] Comment on above: Performed By: #### T ROPBrodie LACTIC, CMPX, CBC #### [facility] [employer] [address] [place] [phone] Substitute Nurse: Tavon Nicole MD Hematocrit (Bld) [Volume fraction] 31.5 % Low 36.3-47.1 [facility] Comment on above: Performed By: #### T ROPI, LACTIC, CMPX, CBC #### [facility] [address] [place], [place] [phone] Substitute Nurse: Tavon Nicole MD Hemoglobin (Bld) [Mass/Vol] 10.8 g/dL Low 11.9-15.1 [facility] Comment on above: Performed By: #### T ROPI, LACTIC, CMPX, CBC #### [facility] [address] [place], [place] [phone] Substitute Nurse: Tavon Nicole MD MCH (RBC) [Entitic mass] 29.1 pg Normal 25.2-33.5 [facility] Comment on above: Performed By: #### T ROPI, LACTIC, CMPX, CBC #### [address] [address] Substitute Nurse: Tavon Nicole MD MCHC (RBC) [Mass/Vol] 34.3 g/dL Normal 28.4-34.8 [facility] Comment on above: Performed By: #### T ROPI, LACTIC, CMPX, CBC #### [address] [address] Substitute Nurse: Tavon Nicole MD MCV (RBC) [Entitic vol] 84.9 fL Normal 82.6-102.9 [facility] Comment on above: Performed By: #### T ROPI, LACTIC, CMPX, CBC #### [address] [address] Substitute Nurse: Tavon Nicole MD NRBC Automated 0.0 per 100 WBC Normal 0.0 [facility] Comment on above: Performed By: #### T ROPI, LACTIC, CMPX, CBC #### [address] [address] Substitute Nurse: Tavon Nicole MD Platelet mean volume (Bld) [Entitic vol] 9.8 fL Normal 8.1-13.5 [facility] Comment on above: Performed By: #### T ROPI, LACTIC, CMPX, CBC #### [address] [address] Substitute Nurse: Tavon Nicole MD Platelets (Bld) [#/Vol] 281 10*3/uL Normal 138-453 [facility] Comment on above: Performed By: #### T ROPI, LACTIC, CMPX, CBC #### [address] [address] Substitute Nurse: Tavon Nicole MD RBC (Bld) [#/Vol] 3.71 10*6/uL Low 3.95-5.11 [facility] Comment on above: Performed By: #### T ROPI, LACTIC, CMPX, CBC #### [facility] [address] [place], [place] [phone] Substitute Nurse: Tavon Nicole MD WBC (Bld) [#/Vol] 5.0 10*3/uL Normal 3.5-11.3 [facility] Comment on above: Performed By: #### T ROPI, LACTIC, CMPX, CBC #### [facility] [address] [place], [place] [phone] Substitute Nurse: Tavon Nicole MD Hematocrit (Bld) [Volume fraction] 31.5 % Low 36.3 - 47.1 % [facility] Hemoglobin (Bld) [Mass/Vol] 10.8 g/dL Low 11.9 - 15.1 g/dL [facility] Interpretation and review of laboratory results Abnormal [facility] MCH (RBC) [Entitic mass] 29.1 pg 25.2 - 33.5 pg [facility] MCHC (RBC) [Mass/Vol] 34.3 g/dL 28.4 - 34.8 g/dL [facility] MCV (RBC) [Entitic vol] 84.9 fL 82.6 - 102.9 fL [facility] NRBC Automated 0.0 0.0 per 100 WBC [facility] Platelet distribution width (Bld) [Ratio] 12.9 % 11.8 - 14.4 % [facility] Platelet mean volume (Bld) [Entitic vol] 9.8 fL 8.1 - 13.5 fL [facility] Platelets (Bld) [#/Vol] 281 10*3/uL [facility] RBC (Bld) [#/Vol] 3.71 10*6/uL Low 3.95 - 5.1 1 m/uL [facility] WBC (Bld) [#/Vol] 5.0 10*3/uL [facility] CBC AUTO DIFFon 10-19-2021 EO # 0.2 103/ul Normal 0.0-0.7 [facility] Comment on above: Performed By: #### A MM #### [facility] [address] [place] [address] Dr. Ibis Jimenez Eosinophils/100 WBC (Bld) 3.9 % Normal 0.9-7.0 [facility] Comment on above: Performed By: #### A MM #### [facility] [address] [place] [address] Dr. Ibis Jimenez Erythrocyte distribution width (RBC) [Ratio] 13.1 % Normal 11.0-15.0 [facility] Comment on above: Performed By: #### A MM #### [facility] [address] [place] [address] Dr. Ibis Jimenez Hematocrit (Bld) [Volume fraction] 33.4 % Critically low 36.0-48.0 [facility] Comment on above: Performed By: #### A MM #### [facility] [address] [place] [address] Dr. Ibis Jimenez Hemoglobin (Bld) [Mass/Vol] 11.1 g/dL Critically low 12.0-16.0 [facility] Comment on above: Performed By: #### A MM #### [facility] [address] [place] [address] Dr. Ibis Jimenez LYMPH # 1.2 103/ul Normal 1.2-3.8 [facility] Comment on above: Performed By: #### A MM #### [facility] [address] [place] [address] Dr. Ibis Jimenez Lymphocytes/100 WBC (Bld) 25.9 % Normal 20.5-60.0 [facility] Comment on above: Performed By: #### A MM #### [facility] [address] [place] [address] Dr. Ibis Jimenez MCHC (RBC) [Mass/Vol] 33.2 g/dL Normal 29.9-35.2 [facility] Comment on above: Performed By: #### A MM #### [facility] [address] [place] [address] Dr. Ibis Jimenez MCV (RBC) [Entitic vol] 85.9 fL Normal 81.0-99.0 [facility] Comment on above: Performed By: #### A MM #### [facility] [address] [place] [address] Dr. Ibis Jimenez Monocytes/100 WBC (Bld) 7.7 % Normal 1.7-12.0 [facility] Comment on above: Performed By: #### A MM #### [facility] [address] [place] [address] Dr. Ibis Jimenez NEUT # 2.9 103/ul Normal 1.4-6.5 [facility] Comment on above: Performed By: #### A MM #### [facility] [address] [place] [address] Dr. Ibis Jimenez Neutrophils/100 WBC (Bld) 61.5 % Normal 43.0-75.0 [facility] Comment on above: Performed By: #### A MM #### [facility] [address] [place] [address] Dr. Ibis Jimenez PLT 264 103/ul Normal 150-450 [facility] Comment on above: Performed By: #### A MM #### [facility] [address] [place] [address] Dr. Ibis Jimenez RBC 3.89 106/ul Critically low 4.20-5.40 [facility] Comment on above: Performed By: #### A MM #### [facility] [address] [place] [address] Dr. Ibis Jimenez WBC 4.7 103/ul Normal 4.0-11.0 [facility] Comment on above: Performed By: #### A MM #### [facility] [address] [place] [address] Dr. Ibis Jimenez BASO # 0.0 103/ul Normal 0.0-0.1 [facility] Comment on above: Performed By: #### A MM #### [facility] [address] [place] [address] Dr. Ibis Jimenez Performed By: #### C VDTBH #### [facility] [address] [place] [address] Dr. Ibis Jimenez Basophils/100 WBC (Bld) 0.6 % Normal 0.2-2.0 [facility] Comment on above: Performed By: #### A MM #### [facility] [address] [place] [address] Dr. Ibis Jimenez Performed By: #### C VDTBH #### [facility] [address] [place] [address] Dr. Ibis Jimenez EO # 0.3 103/ul Normal 0.0-0.7 [facility] Comment on above: Performed By: #### C VDTBH #### [facility] [address] [place] [address] Dr. Ibis Jimenez Eosinophils/100 WBC (Bld) 5.0 % Normal 0.9-7.0 [facility] Comment on above: Performed By: #### C VDTBH #### [facility] [address] [place] [address] Dr. Ibis Jimenez Erythrocyte distribution width (RBC) [Ratio] 12.8 % Normal 11.0-15.0 [facility] Comment on above: Performed By: #### C VDTBH #### [facility] [address] [place] [address] Dr. Ibis Jimenez Hematocrit (Bld) [Volume fraction] 38.0 % Normal 36.0-48.0 [facility] Comment on above: Performed By: #### C VDTBH #### [facility] [address] [place] [address] Dr. Ibis Jimenez Hemoglobin (Bld) [Mass/Vol] 12.7 g/dL Normal 12.0-16.0 [facility] Comment on above: Performed By: #### C VDTBH #### [facility] [address] [place] [address] Dr. Ibis Jimenez IG # 0.02 10e3/ul Normal 0.00-0.03 [facility] Comment on above: Performed By: #### A MM #### [facility] [address] [place] [address] Dr. Ibis Jimenez Performed By: #### C VDTBH #### [facility] [address] [place] [address] Dr. Ibis Jimenez IG % 0.4 % Normal 0.0-0.5 [facility] Comment on above: Performed By: #### A MM #### [facility] [address] [place] [address] Dr. Ibis Jimenez Performed By: #### C VDTBH #### [facility] [address] [place] [address] Dr. Ibis Jimenez LYMPH # 1.7 103/ul Normal 1.2-3.8 [facility] Comment on above: Performed By: #### C VDTBH #### [facility] [address] [place] [address] Dr. Ibis Jimenez Lymphocytes/100 WBC (Bld) 30.7 % Normal 20.5-60.0 [facility] Comment on above: Performed By: #### C VDTBH #### [facility] [address] [place] [address] Dr. Ibis Jimenez MANUAL DIFF REQ NO Normal [facility] Comment on above: Performed By: #### A MM #### [facility] [address] [place] [address] Dr. Ibis Jimenez Performed By: #### C VDTBH #### [facility] [address] [place] [address] Dr. Ibis Jimenez MCH (RBC) [Entitic mass] 28.5 pg Normal 26.7-34.0 [facility] Comment on above: Performed By: #### A MM #### [facility] [address] [place] [address] Dr. Ibis Jimenez Performed By: #### C VDTBH #### [facility] [address] [place] [address] Dr. Ibis Jimenez MCHC (RBC) [Mass/Vol] 33.4 g/dL Normal 29.9-35.2 [facility] Comment on above: Performed By: #### C VDTBH #### [facility] [address] [place] [address] Dr. Ibis Jimenez MCV (RBC) [Entitic vol] 85.2 fL Normal 81.0-99.0 [facility] Comment on above: Performed By: #### C VDTBH #### [facility] [address] [place] [address] Dr. Ibis Jimenez MONO # 0.4 103/ul Normal 0.3-0.8 [facility] Comment on above: Performed By: #### A MM #### [facility] [address] [place] [address] Dr. Ibis Jimenez Performed By: #### C VDTBH #### [facility] [address] [place] [address] Dr. Ibis Jimenez Monocytes/100 WBC (Bld) 8.1 % Normal 1.7-12.0 [facility] Comment on above: Performed By: #### C VDTBH #### [facility] [address] [place] [address] Dr. Ibis Jimenez NEUT # 3.0 103/ul Normal 1.4-6.5 [facility] Comment on above: Performed By: #### C VDTBH #### [facility] [address] [place] [address] Dr. Ibis Jimenez Neutrophils/100 WBC (Bld) 55.2 % Normal 43.0-75.0 [facility] Comment on above: Performed By: #### C VDTBH #### [facility] [address] [place] [address] Dr. Ibis Jimenez Platelet mean volume (Bld) [Entitic vol] 9.5 fL Normal 9.5-13.5 [facility] Comment on above: Performed By: #### A MM #### [facility] [address] [place] [address] Dr. Ibis Jimenez Performed By: #### C VDTBH #### [facility] [address] [place] [address] Dr. Ibis Jimenez PLT 343 103/ul Normal 150-450 [facility] Comment on above: Performed By: #### C VDTBH #### [facility] [address], [place] [address] Dr. Ibis Jimenez RBC 4.46 106/ul Normal 4.20-5.40 [facility] Comment on above: Performed By: #### C VDTBH #### [facility] [address], [place] [address] Dr. Ibis Jimenez WBC 5.4 103/ul Normal 4.0-11.0 [facility] Comment on above: Performed By: #### C VDTBH #### [facility] [address], [place] [address] HEAD WO CONon [...] by: LOPEZ REYNOLDS Date: 2021-10-19 07:31 Normal [facility] Comp Metabolic Pr/rfx MGon 0 10-19-2021 (cont.) Normal [facility] Comment on above: Result Comment: Aver age GFR for 20-29 years old: 116 mL/min/1.73sq m Chronic Kidney Disease: <60 mL/min/1.73sq m Kidney failure: <15 mL/min/1.73sq m eGFR calculated using average adult body mass. Additional eGFR calculator available at: http://www.[employer]/multiple_crcl_2011.htm Performed By: #### T ROPI, LACTIC, CMPX, CBC #### [address] [address] Substitute Nurse: Tavon Nicole MD Albumin [Mass/Vol] 3.5 g/dL Normal 3.5-5.2 [facility] Comment on above: Performed By: #### T ROPI, LACTIC, CMPX, CBC #### [address] [address] Substitute Nurse: Tavon Nicole MD Albumin/Glob Ratio 1.4 Normal 1.0-2.5 [facility] Comment on above: Performed By: #### T ROPI, LACTIC, CMPX, CBC #### [address] [address] Substitute Nurse: Tavon Nicole MD Alkaline Phos 69 U/L Normal 35-104 [facility] Comment on above: Performed By: #### T ROPI, LACTIC, CMPX, CBC #### [address] [address] Substitute Nurse: Tavon Nicole MD ALT [Catalytic activity/Vol] 15 U/L Normal 5-33 [facility] Comment on above: Performed By: #### T ROPI, LACTIC, CMPX, CBC #### [address] [address] Substitute Nurse: Tavon Nicole MD Anion gap [Moles/Vol] 13 mmol/L Normal 9-17 [facility] Comment on above: Performed By: #### T ROPI, LACTIC, CMPX, CBC #### [address] [address] Substitute Nurse: Tavon Nicole MD AST [Catalytic activity/Vol] 12 U/L Normal <32 [facility] Comment on above: Performed By: #### T ROPI, LACTIC, CMPX, CBC #### [address] [address] Substitute Nurse: Tavon Nciole MD Bilirubin [Mass/Vol] 0.24 mg/dL Low 0.3-1.2 [facility] Comment on above: Performed By: #### T ROPI, LACTIC, CMPX, CBC #### [facility] [address] [place] [address] Substitute Nurse: Tavon Nicole MD Calcium [Mass/Vol] 8.1 mg/dL Low 8.6-10.4 [facility] Comment on above: Performed By: #### T ROPI, LACTIC, CMPX, CBC #### [facility] [employer] [address] [place] [address] Substitute Nurse: Tavon Nicole MD Chloride [Moles/Vol] 107 mmol/L Normal 98-107 [facility] Comment on above: Performed By: #### T ROPI, LACTIC, CMPX, CBC #### [address] [address] Substitute Nurse: Tavon Nicole MD CO2 [Moles/Vol] 19 mmol/L Low 20-31 [facility] Comment on above: Performed By: #### T ROPI, LACTIC, CMPX, CBC #### [facility] [employer] [address] [place] [address] Substitute Nurse: Tavon Nicole MD Creatinine [Mass/Vol] 0.53 mg/dL Normal 0.50-0.90 [facility] Comment on above: Performed By: #### T ROPI, LACTIC, CMPX, CBC #### [address] [address] Substitute Nurse: Tavon Nicole MD GFR, Amer >60 Normal >60 [facility] Comment on above: Performed By: #### T ROPI, LACTIC, CMPX, CBC #### [facility] [employer] [address] [place] [address] Substitute Nurse: Tavon Nicole MD GFR,non Amer >60 Normal >60 [facility] Comment on above: Performed By: #### T ROPI, LACTIC, CMPX, CBC #### [facility] [address] [place] [address] Substitute Nurse: Tavon Nicole MD Glucose [Mass/Vol] 81 mg/dL Normal 70-99 [facility] Comment on above: Performed By: #### T ROPI, LACTIC, CMPX, CBC #### [facility] [address] [place] [address] Substitute Nurse: Tavon Nicole MD Potassium [Moles/Vol] 3.9 mmol/L Normal 3.7-5.3 [facility] Comment on above: Performed By: #### T ROPI, LACTIC, CMPX, CBC #### [facility] [address] [place] [address] Substitute Nurse: Tavon Nicole MD Protein [Mass/Vol] 6.0 g/dL Low 6.4-8.3 [facility] Comment on above: Performed By: #### T ROPI, LACTIC, CMPX, CBC #### [facility] [address] [place] [address] Substitute Nurse: Tavon Nicole MD Sodium [Moles/Vol] 139 mmol/L Normal 135-144 [facility] Comment on above: Performed By: #### T ROPI, LACTIC, CMPX, CBC #### [facility] [address] [place] [address] Substitute Nurse: Tavon Nicole MD Urea nitrogen [Mass/Vol] 10 mg/dL Normal 6-20 [facility] Comment on above: Performed By: #### T ROPI, LACTIC, CMPX, CBC #### [facility] [address] [place] [address] Substitute Nurse: Tavon Nicole MD Comprehensive Metabolic Pane l w/ Reflex to MGon 10-19-2021 Albumin [Mass/Vol] 3.5 g/dL 3.5 - 5.2 g/dL [facility] Albumin/Globulin [Mass ratio] 1.4 {ratio} 1 - 2.5 [facility] ALP (Bld) [Catalytic activity/Vol] 69 U/L 35 - 104 U/L [facility] ALT [Catalytic activity/Vol] 15 U/L 5 - 33 U/L [facility] Anion gap [Moles/Vol] 13 mmol/L 9 - 17 mmol/L [facility] AST [Catalytic activity/Vol] 12 U/L NINF - 32 U/L [facility] Bilirubin [Mass/Vol] 0.24 mg/dL Low 0.3 - 1 .2 mg/dL [facility] Calcium [Mass/Vol] 8.1 mg/dL Low 8.6 - 10. 4 mg/dL [facility] Chloride [Moles/Vol] 107 mmol/L 98 - 10 7 mmol/L [facility] CO2 [Moles/Vol] 19 mmol/L Low 20 - 31 mmol/L [facility] Creatinine [Mass/Vol] 0.53 mg/dL 0.5 - 0.9 mg/dL [facility] Free PSA/Total PSA [Mass fraction] 6.0 g/dL Low 6.4 - 8.3 g/dL [facility] GFR >60 60 - PI NF mL/min [facility] GFR Non- >60 60 - PINF mL/min [facility] GFR/1.73 sq M.predicted MDRD (S/P/Bld) [Vol rate/Area] [facility] Comment on above: Average GFR for 20-2 9 years old: 116 mL/min/1.73sq m Chronic Kidney Disease: <60 mL/min/1.73sq m Kidney failure: <15 mL/min/1.73sq m eGFR calculated using average adult body mass. Additional eGFR calculator available at: http://www.[email or web address]/multiple_crcl_2011.htm Glucose [Mass/Vol] 81 mg/dL 70 - 99 mg/dL [facility] Interpretation and review of laboratory results Abnormal [facility] Potassium [Moles/Vol] 3.9 mmol/L 3.7 - 5.3 mmol/L [facility] Sodium [Moles/Vol] 139 mmol/L 135 - 144 mmol/L [facility] Urea nitrogen (BldV) [Mass/Vol] 10 mg/dL 6 - 20 mg/dL [facility] Covid-19 PCR (CVDTBH)on 09-22 SARS-CoV-2 (COVID-19) RNA SAURABH+probe Ql (Unsp spec) Not detected Normal NOT DETECTED [facility] Comment on above: Result Comment: When [...] for this test is supported by the Shareholder of Health and Human Service's declaration that [...] used). Performed By: #### C VDTBH #### [facility] [address] [place] [address] Dr. Ibis Jimenez DRUG SCREEN RAPID (URINE)on 10-19-2021 AMP Negative Normal NEGATIVE [facility] Comment on above: Performed By: #### B MP #### [facility] [address] [place] [address] Dr. Ibis Jimenez BAR Positive Abnormal NEGATIVE [facility] Comment on above: Performed By: #### B MP #### [facility] [address] [address] [address] Ibis Jimenez BUP Negative Normal NEGATIVE [facility] Comment on above: Performed By: #### B MP #### [facility] [address] [place] [address] Dr. Ibis Jimenez BZO Positive Abnormal NEGATIVE [facility] Comment on above: Performed By: #### B MP #### [facility] [address] [place] [address] Dr. Ibis Jimenez SEMAJ Negative Normal NEGATIVE [facility] Comment on above: Performed By: #### B MP #### [facility] [address] [place] [address] Dr. Ibis Jimenez CUT-OFFS SEE BELOW Normal [facility] Comment on above: Result Comment: AMP [...] ng/mL Performed By: #### B MP #### [facility] [address] [place] [address] Dr. Ibis Jimenez DRUG CUT HEADER DRUG CLASS TEST SYSTEM CUT-OFF CONCENTRATIONS ARE FOLLOWS: Normal [facility] Comment on above: Performed By: #### B MP #### [facility] [address] [place] [address] Dr. Ibis Jimenez mAMP Negative Normal NEGATIVE [facility] Comment on above: Performed By: #### B MP #### [facility] [address] [place] [address] Dr. Ibis Jimenez MTD Negative Normal NEGATIVE [facility] Comment on above: Performed By: #### B MP #### [facility] [address] [place] [address] Dr. Ibis Jimenez OPI Positive Abnormal NEGATIVE [facility] Comment on above: Performed By: #### B MP #### [facility] [address] [place] [address] Dr. Ibis Jimenez OXY Positive Abnormal NEGATIVE [facility] Comment on above: Performed By: #### B MP #### [facility] [address] [place] [address] Dr. Ibis Jimenez PCP Negative Normal NEGATIVE [facility] Comment on above: Performed By: #### B MP #### [facility] [address] [place] [address] Dr. Ibis Jimenez PPX Negative Normal NEGATIVE [facility] Comment on above: Performed By: #### B MP #### [facility] [address] [place] [address] Dr. Ibis Jimenez TCA Negative Normal NEGATIVE [facility] Comment on above: Performed By: #### B MP #### [facility] [address] [place] [address] Dr. Ibis Jimenez THC Negative Normal NEGATIVE [facility] Comment on above: Performed By: #### B MP #### [facility] [address] [place] [address] Dr. Ibis Jimenez ER URINE PROFILEon 2 Bilirubin Ql (U) Negative Normal NEGATIVE [facility] Comment on above: Performed By: #### B MP #### [facility] [address] [place] [address] Dr. Ibis Jimenez Clarity (U) CLEAR Normal CLEAR [facility] Comment on above: Performed By: #### B MP #### [facility] [address] [place] [address] Dr. Ibis Jimenez Color (U) YELLOW Normal YELLOW [facility] Comment on above: Performed By: #### B MP #### [facility] [address] [place] [address] Dr. Ibis RODRIGUEZ A micrscopic examination will be performed if indicated. Normal [facility] Comment on above: Performed By: #### B MP #### [facility] [address] [place] [address] Dr. Ibis Jimenez Glucose Ql (U) Negative Normal NEGATIVE [facility] Comment on above: Performed By: #### B MP #### [facility] [address] [place] [address] Dr. Ibis Jimenez Hemoglobin Ql (U) TRACE-INTACT Abnormal NEGATIVE [facility] Comment on above: Performed By: #### B MP #### [facility] [address] [place] [address] Dr. Ibis Jimenez Ketones Ql (U) Negative Normal NEGATIVE [facility] Comment on above: Performed By: #### B MP #### [facility] [address] [place] [address] Dr. Ibis Jimenez LEUKOCYTES Negative Normal NEGATIVE [facility] Comment on above: Performed By: #### B MP #### [facility] [address] [place] [address] Dr. Ibis Jimenez Nitrite Ql (U) Negative Normal NEGATIVE [facility] Comment on above: Performed By: #### B MP #### [facility] [address] [place] [address] Dr. Ibis Jimenez pH (U) 5.5 [pH] Normal 5-9 [facility] Comment on above: Performed By: #### B MP #### [facility] [address] [place] [address] Dr. Ibis Jimenez SPEC GRAVITY >=1.030 Abnormal 1.005-<=1.02 5 [facility] Comment on above: Performed By: #### B MP #### [facility] [address] [place] [address] Dr. Ibis Jimenez UA PROTEIN Negative Normal NEGATIVE/ TRACE [facility] Comment on above: Performed By: #### B MP #### [facility] [address] [place] [address] Dr. Ibis Jimenez UR MICRO IND INDICATED Normal [facility] Comment on above: Performed By: #### B MP #### [facility] [address] [place] [address] Dr. Ibis Jimenez Urobilinogen Qn (U) 0.2 {Dinorah'U}/dL Normal 0.2 - 1. 0 [facility] Comment on above: Performed By: #### B MP #### [facility] [address] [place] [address] [address] [address] Ibis Jimenez LACTATE/LACTIC ACIDon 2021 Lactate [Moles/Vol] 1.2 mmol/L Normal 0.4-1.9 [facility] Comment on above: Performed By: #### A MM #### [facility] [address] [place], [place] [id number] Dr. Ibis Jimenez Lactic Acidon 10-19-2021 Lactic Acid,Whole Bl 0.9 mmol/L Normal 0.7-2.1 [facility] Comment on above: Performed By: #### T ROPI, LACTIC, CMPX, CBC #### [facility] [address] [place] [address] Substitute Nurse: Tavon Nicole MD Lactic Acid, Whole Blood 0.9 mmol/L 0.7 - 2.1 mmol/L [facility] MONOon 10-19-2021 Monocytes (Bld) [#/Vol] Negative Normal NEGATIVE [facility] Comment on above: Performed By: #### M DAVID #### [facility] [address] [place], [place] [id number] Dr. Ibis Jimenez MRI BRAIN W WO [...] Carlos Marks DO 10/19/21 Final result Normal [facility] Unremarkable MR brain. [facility] EXAMINATION: MRI OF THE BRAIN WITHOUT [...] soft tissues demonstrate no acute abnormality. [facility] Carlos Marks DO - 10/19/2021 EXAMINATION: [...] no acute abnormality. IMPRESSION: Unremarkable MR brain. [employer] Phone: Radiology Study observation (narrative) [employer] Phone: MRI BRAIN W WO CONTRASTOrder ed By: Carlos Marks on 10-19-2021 [facility] [employer] Phone: PH VENOUS BLOODon 10-19-2021 PCO2 VENOUS 36.6 mmHg Critically low 40.0-52.0 [facility] Comment on above: Performed By: #### B MP #### [facility] [address] [place] [address] Dr. Ibis Jimenez pH VENOUS 7.387 Normal 7.330-7.430 [facility] Comment on above: Performed By: #### B MP #### [facility] [address] [place] [address] Dr. Ibis Jimenez PROF CHEM 8 (BAS METB)on Anion gap [Moles/Vol] 11.9 mmol/L Normal [facility] Comment on above: Performed By: #### M DAVID #### [facility] [address] [place] [address] Dr. Ibis Jimenez Calcium [Mass/Vol] 9.1 mg/dL Normal 8.5-10.1 [facility] Comment on above: Performed By: #### M DAVID #### [facility] [address] [place] [address] Dr. Ibis Jimenez Chloride [Moles/Vol] 104 mmol/L Normal 98-107 [facility] Comment on above: Performed By: #### M DAVID #### [facility] [address] [address] [address] Ibis Jimenez CO2 [Moles/Vol] 26.7 mmol/L Normal 21.0-32.0 [facility] Comment on above: Performed By: #### M DAVID #### [facility] [address] [address] [address] Ibis Jimenez Creatinine [Mass/Vol] 0.78 mg/dL Normal 0.55-1.02 [facility] Comment on above: Performed By: #### M DAVID #### [facility] [address] [address] [address] Ibis Jimenez EGFR-AF TURKISH >60 Normal >=60 [facility] Comment on above: Performed By: #### M DAVID #### [facility] [address] [address] [address] Ibis Jimenez EGFR-NON AF TURKISH >60 Normal >=60 [facility] Comment on above: Performed By: #### M DAVID #### [facility] [address] [address] [address] Ibis Jimenez Glucose [Mass/Vol] 96 mg/dL Normal 74-106 [facility] Comment on above: Performed By: #### M DAVID #### [facility] [address] [address] [address] Ibis Jimenez Potassium [Moles/Vol] 3.6 mmol/L Normal 3.5-5.1 [facility] Comment on above: Performed By: #### M DAVID #### [facility] [address] [address] [address] Ibis Jimenez Sodium [Moles/Vol] 139 mmol/L Normal 136-145 [facility] Comment on above: Performed By: #### M DAVID #### [facility] [address] [address] [address] Ibis Jimenez Urea nitrogen [Mass/Vol] 14.0 mg/dL Normal 7.0-18.0 [facility] Comment on above: Performed By: #### M DAVID #### [facility] [address] [address] [address] Ibis Jimenez Urea nitrogen/Creatinine [Mass ratio] 17.9 mg/mg Normal [facility] Comment on above: Performed By: #### M DAVID #### [facility] [address] [address] [address] Ibis Jimenez TSHon 10-19-2021 TSH 1.389 uIU/mL Normal 0.358-3.740 [facility] Comment on above: Performed By: #### A CET, SALYC #### [facility] [address] [address] [address] Ibis Jimenez Troponinon 10-19-2021 Troponin, High Sens <6 Normal 0-14 [facility] Comment on above: Result Comment: High Sensitivity Troponin values cannot be compared with other Troponin methodologies. Patients with high levels of Biotin oral intake (i.e >5mg/day) may have falsely decreased Troponin levels. Samples collected within 8 hours of biotin intake may require additional information for diagnosis. Performed By: #### T ROPI, LACTIC, CMPX, CBC #### [employer] [address] [place] [address] Substitute Nurse: Tavon Nicole MD Troponin, High Sensitivity ng/L 0 - 14 ng/L [facility] Comment on above: High Sensitivity Troponin values cannot be compared with other Troponin methodologies. Patients with high levels of Biotin oral intake (i.e >5mg/day) may have falsely decreased Troponin levels. Samples collected within 8 hours of biotin intake may require additional information for diagnosis. [facility] URINE MICROSCOPIC ONLYon BACTERIA TRACE Abnormal NONE SEEN [facility] Comment on above: Performed By: #### B MP #### [facility] [address] [place] [address] Dr. Ibis Jimenez Bacteria identified Cx Nom (U) NOT INDICATED Normal [facility] Comment on above: Performed By: #### B MP #### [facility] [address] [address] [address] Ibis Jimenez CAST NONE SEEN Normal NONE SEEN [facility] Comment on above: Performed By: #### B MP #### [facility] [address] [place] [address] Dr. Ibis Jimenez Crystals LM Nom (Urine sed) NONE SEEN Normal NONE SEEN [facility] Comment on above: Performed By: #### B MP #### [facility] [address] [place] [address] Dr. Ibis Jimenez Epithelial cells LM Ql (Urine sed) RARE Normal NONE SEEN /RARE [facility] Comment on above: Performed By: #### B MP #### [facility] [address] [place] [address] Dr. Ibis Jimenez MUCOUS LARGE Abnormal NONE SEEN [facility] Comment on above: Performed By: #### B MP #### [facility] [address] [place] [address] Dr. Ibis Jimenez RBC 2-5 Abnormal 0-2 [facility] Comment on above: Performed By: #### B MP #### [facility] [address] [place] [address] Dr. Ibis Jimenez WBC 0-2 Abnormal NONE SEEN [facility] Comment on above: Performed By: #### B MP #### [facility] [address] [place] [address] ABD/PELVIS WO CONon [...] JASS LAURENT Date: 2021-10-06 20:08 Normal [facility] ER URINE PROFILEon 2 Bilirubin Ql (U) Negative Normal NEGATIVE [facility] Comment on above: Performed By: #### M DAVID #### [facility] [address] [place] [address] Dr. Ibis Jimenez Clarity (U) CLEAR Normal CLEAR [facility] Comment on above: Performed By: #### M DAVID #### [facility] [address] [place] [address] Dr. Ibis Jimenez Color (U) LT. YELLOW Normal YELLOW [facility] Comment on above: Performed By: #### M DAVID #### [facility] [address] [place] [address] Dr. Ibis Jimenez ERUKishan A micrscopic examination will be performed if indicated. Normal [facility] Comment on above: Performed By: #### M DAVID #### [facility] [address] [place] [address] Dr. Ibis Jimenez Glucose Ql (U) Negative Normal NEGATIVE [facility] Comment on above: Performed By: #### M DAVID #### [facility] [address] [place] [address] Dr. Ibis Jimenez Hemoglobin Ql (U) Negative Normal NEGATIVE [facility] Comment on above: Performed By: #### M DAVID #### [facility] [address] [place] [address] Dr. Ibis Jimenez Ketones Ql (U) Negative Normal NEGATIVE [facility] Comment on above: Performed By: #### M DAVID #### [facility] [address] [place] [address] Dr. Ibis Jimenez LEUKOCYTES Negative Normal NEGATIVE [facility] Comment on above: Performed By: #### M DAVID #### [facility] [address] [address] [address] Ibis Jimenez Nitrite Ql (U) Negative Normal NEGATIVE [facility] Comment on above: Performed By: #### M DAVID #### [facility] [address] [place] [address] Dr. Ibis Jimenez pH (U) 8.0 [pH] Normal 5-9 [facility] Comment on above: Performed By: #### M DAVID #### [facility] [address] [place] [address] Dr. Ibis Jimenez SPEC GRAVITY 1.010 Normal 1.005-<=1.02 5 [facility] Comment on above: Performed By: #### M DAVID #### [facility] [address] [place] [address] Dr. Ibis Jimenez UA PROTEIN Negative Normal NEGATIVE/ TRACE [facility] Comment on above: Performed By: #### M DAVID #### [facility] [address] [place] [address] Dr. Ibis Jimenez UR MICRO IND NOT INDICATED Normal [facility] Comment on above: Performed By: #### M DAVID #### [facility] [address] [place] [address] Dr. Ibis Jimenez Urobilinogen Qn (U) 0.2 {Dinorah'U}/dL Normal 0.2 - 1. 0 [facility] Comment on above: Performed By: #### M DAVID #### [facility] [address] [place] [address] Dr. Ibis Jimenez ER URINE PROFILEon 2 Bilirubin Ql (U) Negative Normal NEGATIVE [facility] Comment on above: Performed By: #### C VDTBH #### [facility] [address] [address] [address] Ibis Jimenez Clarity (U) CLEAR Normal CLEAR [facility] Comment on above: Performed By: #### C VDTBH #### [facility] [address] [place] [address] Dr. Ibis Jimenez Color (U) YELLOW Normal YELLOW [facility] Comment on above: Performed By: #### C VDTBH #### [facility] [address] [place] [address] Dr. Ibis RODRIGUEZ A micrscopic examination will be performed if indicated. Normal [facility] Comment on above: Performed By: #### C VDTBH #### [facility] [address] [place] [address] Dr. Ibis Jimenez Glucose Ql (U) Negative Normal NEGATIVE [facility] Comment on above: Performed By: #### C VDTBH #### [facility] [address] [place] [address] Dr. Ibis Jimenez Hemoglobin Ql (U) Negative Normal NEGATIVE [facility] Comment on above: Performed By: #### C VDTBH #### [facility] [address] [place] [address] Dr. Ibis Jimenez Ketones Ql (U) Negative Normal NEGATIVE [facility] Comment on above: Performed By: #### C VDTBH #### [facility] [address] [place] [address] Dr. Ibis Jimenez LEUKOCYTES Negative Normal NEGATIVE [facility] Comment on above: Performed By: #### C VDTBH #### [facility] [address] [place] [address] Dr. Ibis Jimenez Nitrite Ql (U) Negative Normal NEGATIVE [facility] Comment on above: Performed By: #### C VDTBH #### [facility] [address] [place] [address] Dr. Ibis Jimenez pH (U) 6.0 [pH] Normal 5-9 [facility] Comment on above: Performed By: #### C VDTBH #### [facility] [address] [place] [address] Dr. Ibis Jimenez SPEC GRAVITY 1.025 Normal 1.005-<=1.02 5 [facility] Comment on above: Performed By: #### C VDTBH #### [facility] [address] [place] [address] Dr. Ibis Jimenez UA PROTEIN Negative Normal NEGATIVE/ TRACE [facility] Comment on above: Performed By: #### C VDTBH #### [facility] [address] [place] [address] Dr. Ibis Jimenez UR MICRO IND NOT INDICATED Normal [facility] Comment on above: Performed By: #### C VDTBH #### [facility] [address] [place] [address] Dr. Ibis Jimenez Urobilinogen Qn (U) 0.2 {Dinorah'U}/dL Normal 0.2 - 1. 0 [facility] Comment on above: Performed By: #### C VDTBH #### [facility] [address] [place] [address] Dr. Ibis Jimenez CBC AUTO DIFFon 10-03-2021 BASO # 0.0 103/ul Normal 0.0-0.1 [facility] Comment on above: Performed By: #### B MP #### [facility] [address] [place] [address] Dr. Ibis Jimenez Basophils/100 WBC (Bld) 0.3 % Normal 0.2-2.0 [facility] Comment on above: Performed By: #### B MP #### [facility] [address] [place] [address] Dr. Ibis Jimenez EO # 0.3 103/ul Normal 0.0-0.7 [facility] Comment on above: Performed By: #### B MP #### [facility] [address] [place] [address] Dr. Ibis Jimenez Eosinophils/100 WBC (Bld) 4.1 % Normal 0.9-7.0 [facility] Comment on above: Performed By: #### B MP #### [facility] [address] [place] [address] Dr. Ibis Jimenez Erythrocyte distribution width (RBC) [Ratio] 13.2 % Normal 11.0-15.0 [facility] Comment on above: Performed By: #### B MP #### [facility] [address] [place] [address] Dr. Ibis Jimenez Hematocrit (Bld) [Volume fraction] 35.7 % Critically low 36.0-48.0 [facility] Comment on above: Performed By: #### B MP #### [facility] [address] [place] [address] Dr. Ibis Jimenez Hemoglobin (Bld) [Mass/Vol] 11.6 g/dL Critically low 12.0-16.0 [facility] Comment on above: Performed By: #### B MP #### [facility] [address] [place] [address] Dr. Ibis Jimenez IG # 0.02 10e3/ul Normal 0.00-0.03 [facility] Comment on above: Performed By: #### B MP #### [facility] [address] [place] [address] Dr. Ibis Jimenez IG % 0.3 % Normal 0.0-0.5 [facility] Comment on above: Performed By: #### B MP #### [facility] [address] [place] [address] Dr. Ibis Jimenez LYMPH # 1.5 103/ul Normal 1.2-3.8 [facility] Comment on above: Performed By: #### B MP #### [facility] [address] [place] [address] Dr. Ibis Jimenez Lymphocytes/100 WBC (Bld) 24.3 % Normal 20.5-60.0 [facility] Comment on above: Performed By: #### B MP #### [facility] [address] [place] [address] Dr. Ibis Jimenez MANUAL DIFF REQ NO Normal [facility] Comment on above: Performed By: #### B MP #### [facility] [address] [place] [address] Dr. Ibis Jimenez MCH (RBC) [Entitic mass] 28.9 pg Normal 26.7-34.0 [facility] Comment on above: Performed By: #### B MP #### [facility] [address] [place] [address] Dr. Ibis Jimenez MCHC (RBC) [Mass/Vol] 32.5 g/dL Normal 29.9-35.2 [facility] Comment on above: Performed By: #### B MP #### [facility] [address] [place] [address] Dr. Ibis Jimenez MCV (RBC) [Entitic vol] 89.0 fL Normal 81.0-99.0 [facility] Comment on above: Performed By: #### B MP #### [facility] [address] [place] [address] Dr. Ibis Jimenez MONO # 0.5 103/ul Normal 0.3-0.8 [facility] Comment on above: Performed By: #### B MP #### [facility] [address] [place] [address] Dr. Ibis Jimenez Monocytes/100 WBC (Bld) 7.3 % Normal 1.7-12.0 [facility] Comment on above: Performed By: #### B MP #### [facility] [address] [place] [address] Dr. Ibis Jimenez NEUT # 4.0 103/ul Normal 1.4-6.5 [facility] Comment on above: Performed By: #### B MP #### [facility] [address] [place] [address] Dr. Ibis Jimenez Neutrophils/100 WBC (Bld) 63.7 % Normal 43.0-75.0 [facility] Comment on above: Performed By: #### B MP #### [facility] [address] [place] [address] Dr. Ibis Jimenez Platelet mean volume (Bld) [Entitic vol] 9.7 fL Normal 9.5-13.5 [facility] Comment on above: Performed By: #### B MP #### [facility] [address] [place] [address] Dr. Ibis Jimenez PLT 237 103/ul Normal 150-450 [facility] Comment on above: Performed By: #### B MP #### [facility] [address] [place] [address] Dr. Ibis Jimenez RBC 4.01 106/ul Critically low 4.20-5.40 [facility] Comment on above: Performed By: #### B MP #### [facility] [address] [place] [address] Dr. Ibis Jimenez WBC 6.3 103/ul Normal 4.0-11.0 [facility] Comment on above: Performed By: #### B MP #### [facility] [address] [place] [address] Dr. Ibis Jimenez LACTATE/LACTIC ACIDon 2021 Lactate [Moles/Vol] 1.2 mmol/L Normal 0.4-1.9 [facility] Comment on above: Performed By: #### A MM #### [facility] [address] [place] [address] Dr. Ibis Jimenez BUNon 10-02-2021 Urea nitrogen [Mass/Vol] 7.0 mg/dL Normal 7.0-18.0 [facility] Comment on above: Performed By: #### C VDTB #### [facility] [address] [place] [address] Dr. Ibis Jimenez CBC AUTO DIFFon 10-02-2021 BASO # 0.0 103/ul Normal 0.0-0.1 [facility] Comment on above: Performed By: #### A MM #### [facility] [address] [place] [address] Dr. Ibis Jimenez Basophils/100 WBC (Bld) 0.2 % Normal 0.2-2.0 [facility] Comment on above: Performed By: #### A MM #### [facility] [address] [place] [address] Dr. Ibis Jimenez EO # 0.0 103/ul Normal 0.0-0.7 [facility] Comment on above: Performed By: #### A MM #### [facility] [address] [place] [address] Dr. Ibis Jimenez Eosinophils/100 WBC (Bld) 0.3 % Critically low 0.9-7.0 [facility] Comment on above: Performed By: #### A MM #### [facility] [address] [place] [address] Dr. Ibis Jimenez Erythrocyte distribution width (RBC) [Ratio] 12.7 % Normal 11.0-15.0 [facility] Comment on above: Performed By: #### A MM #### [facility] [address] [place] [address] Dr. Ibis Jimenez Hematocrit (Bld) [Volume fraction] 43.4 % Normal 36.0-48.0 [facility] Comment on above: Performed By: #### A MM #### [facility] [address] [place] [address] Dr. Ibis Jimenez Hemoglobin (Bld) [Mass/Vol] 14.6 g/dL Normal 12.0-16.0 [facility] Comment on above: Performed By: #### A MM #### [facility] [address] [place] [address] Dr. Ibis Jimenez IG # 0.03 10e3/ul Normal 0.00-0.03 [facility] Comment on above: Performed By: #### A MM #### [facility] [address] [place] [address] Dr. Ibis Jimenez IG % 0.3 % Normal 0.0-0.5 [facility] Comment on above: Performed By: #### A MM #### [facility] [address] [place] [address] Dr. Ibis Jimenez LYMPH # 1.2 103/ul Normal 1.2-3.8 [facility] Comment on above: Performed By: #### A MM #### [facility] [address] [place] [address] Dr. Ibis Jimenez Lymphocytes/100 WBC (Bld) 11.6 % Critically low 20.5-60.0 [facility] Comment on above: Performed By: #### A MM #### [facility] [address] [place] [address] Dr. Ibis Jimenez MANUAL DIFF REQ NO Normal [facility] Comment on above: Performed By: #### A MM #### [facility] [address] [place] [address] Dr. Ibis Jimenez MCH (RBC) [Entitic mass] 28.5 pg Normal 26.7-34.0 [facility] Comment on above: Performed By: #### A MM #### [facility] [address] [place] [address] Dr. Ibis Jimenez MCHC (RBC) [Mass/Vol] 33.6 g/dL Normal 29.9-35.2 [facility] Comment on above: Performed By: #### A MM #### [facility] [address] [place] [address] Dr. Ibis Jimenez MCV (RBC) [Entitic vol] 84.6 fL Normal 81.0-99.0 [facility] Comment on above: Performed By: #### A MM #### [facility] [address] [place] [address] Dr. Ibis Jimenez MONO # 0.6 103/ul Normal 0.3-0.8 [facility] Comment on above: Performed By: #### A MM #### [facility] [address] [place] [address] Dr. Ibis Jimenez Monocytes/100 WBC (Bld) 5.9 % Normal 1.7-12.0 [facility] Comment on above: Performed By: #### A MM #### [facility] [address] [place] [address] Dr. Ibis Jimenez NEUT # 8.2 103/ul Critically high 1.4-6.5 [facility] Comment on above: Performed By: #### A MM #### [facility] [address] [place] [address] Dr. Ibis Jimenez Neutrophils/100 WBC (Bld) 81.7 % Critically high 43.0-75.0 [facility] Comment on above: Performed By: #### A MM #### [facility] [address] [place] [address] Dr. Ibis Jimenez Platelet mean volume (Bld) [Entitic vol] 9.8 fL Normal 9.5-13.5 [facility] Comment on above: Performed By: #### A MM #### [facility] [address] [place] [address] Dr. Ibis Jimenez PLT 264 103/ul Normal 150-450 [facility] Comment on above: Performed By: #### A MM #### [facility] [address] [place] [address] Dr. Ibis Jimenez RBC 5.13 106/ul Normal 4.20-5.40 [facility] Comment on above: Performed By: #### A MM #### [facility] [address] [place] [address] Dr. Ibis Jimenez WBC 10.1 103/ul Normal 4.0-11.0 [facility] Comment on above: Performed By: #### A MM #### [facility] [address] [place] [address] Dr. Ibis Jimenez CREATININEon 10-02-2021 Creatinine [Mass/Vol] 0.69 mg/dL Normal 0.55-1.02 [facility] Comment on above: Performed By: #### C VDTBH #### [facility] [address] [place] [address] Dr. Ibis Jimenez EGFR-AF TURKISH >60 Normal >=60 [facility] Comment on above: Performed By: #### C VDTBH #### [facility] [address] [place] [address] Dr. Ibis Jimenez EGFR-NON AF TURKISH >60 Normal >=60 [facility] Comment on above: Performed By: #### C VDTBH #### [facility] [address] [place] [address] Dr. Ibis Jimenez CBC AUTO DIFFon 10-01-2021 BASO # 0.0 103/ul Normal 0.0-0.1 [facility] Comment on above: Performed By: #### A MM #### [facility] [address] [place] [address] Dr. Ibis Jimenez Basophils/100 WBC (Bld) 0.3 % Normal 0.2-2.0 [facility] Comment on above: Performed By: #### A MM #### [facility] [address] [place] [address] Dr. Ibis Jimenez EO # 0.1 103/ul Normal 0.0-0.7 [facility] Comment on above: Performed By: #### A MM #### [facility] [address] [place] [address] Dr. Ibis Jimenez Eosinophils/100 WBC (Bld) 1.9 % Normal 0.9-7.0 [facility] Comment on above: Performed By: #### A MM #### [facility] [address] [place] [address] Dr. Ibis Jimenez Erythrocyte distribution width (RBC) [Ratio] 12.7 % Normal 11.0-15.0 [facility] Comment on above: Performed By: #### A MM #### [facility] [address] [place] [address] Dr. Ibis Jimenez Hematocrit (Bld) [Volume fraction] 38.1 % Normal 36.0-48.0 [facility] Comment on above: Performed By: #### A MM #### [facility] [address] [place] [address] Dr. Ibis Jimenez Hemoglobin (Bld) [Mass/Vol] 12.7 g/dL Normal 12.0-16.0 [facility] Comment on above: Performed By: #### A MM #### [facility] [address] [place] [address] Dr. Ibis Jimenez IG # 0.02 10e3/ul Normal 0.00-0.03 [facility] Comment on above: Performed By: #### A MM #### [facility] [address] [place] [address] Dr. Ibis Jimenez IG % 0.3 % Normal 0.0-0.5 [facility] Comment on above: Performed By: #### A MM #### [facility] [address] [place] [address] Dr. Ibis Jimenez LYMPH # 1.9 103/ul Normal 1.2-3.8 [facility] Comment on above: Performed By: #### A MM #### [facility] [address] [place] [address] Dr. Ibis Jimenez Lymphocytes/100 WBC (Bld) 30.5 % Normal 20.5-60.0 [facility] Comment on above: Performed By: #### A MM #### [facility] [address] [place] [address] Dr. Ibis Jimenez MANUAL DIFF REQ NO Normal [facility] Comment on above: Performed By: #### A MM #### [facility] [address] [place] [address] Dr. Ibis Jimenez MCH (RBC) [Entitic mass] 28.3 pg Normal 26.7-34.0 [facility] Comment on above: Performed By: #### A MM #### [facility] [address] [place] [address] Dr. Ibis Jimenez MCHC (RBC) [Mass/Vol] 33.3 g/dL Normal 29.9-35.2 [facility] Comment on above: Performed By: #### A MM #### [facility] [address] [place] [address] Dr. Ibis Jimenez MCV (RBC) [Entitic vol] 85.0 fL Normal 81.0-99.0 [facility] Comment on above: Performed By: #### A MM #### [facility] [address] [place] [address] Dr. Ibis Jimenez MONO # 0.3 103/ul Normal 0.3-0.8 [facility] Comment on above: Performed By: #### A MM #### [facility] [address] [place] [address] Dr. Ibis Jimenez Monocytes/100 WBC (Bld) 5.2 % Normal 1.7-12.0 [facility] Comment on above: Performed By: #### A MM #### [facility] [address] [place] [address] Dr. Ibis Jimenez NEUT # 3.9 103/ul Normal 1.4-6.5 [facility] Comment on above: Performed By: #### A MM #### [facility] [address] [place] [address] Dr. Ibis Jimenez Neutrophils/100 WBC (Bld) 61.8 % Normal 43.0-75.0 [facility] Comment on above: Performed By: #### A MM #### [facility] [address] [place] [address] Dr. Ibis Jimenez Platelet mean volume (Bld) [Entitic vol] 9.7 fL Normal 9.5-13.5 [facility] Comment on above: Performed By: #### A MM #### [facility] [address] [place] [address] Dr. Ibis Jimenez PLT 255 103/ul Normal 150-450 [facility] Comment on above: Performed By: #### A MM #### [facility] [address] [place] [address] Dr. Ibis Jimenez RBC 4.48 106/ul Normal 4.20-5.40 [facility] Comment on above: Performed By: #### A MM #### [facility] [address] [place] [address] Dr. Ibis Jimenez WBC 6.3 103/ul Normal 4.0-11.0 [facility] Comment on above: Performed By: #### A MM #### [facility] [address] [place] [address] Dr. Ibis Jimenez PREG HCG QUALon 10-01-2021 , QUAL Negative Normal NEGATIVE [facility] Comment on above: Performed By: #### M DAVID #### [facility] [address] [place] [address] Dr. Ibis Jimenez [facility] SARS-CoV-2 (COVID-19) RNA SAURABH+probe Ql (Unsp spec) Not detected Normal NOT DETECTED [facility] Comment on above: Result Comment: This test is not yet approved or cleared by the [place] FDA. When there are no FDA-approved or cleared tests available, and other criteria are met, FDA can make tests available under an emergency access mechanism called an Emergency Use Authorization (EUA). The EUA for this test is supported by the [place] of Health and Human Service's (HHS's) declaration [...] SARS-CoV-2. Performed By: #### B MP #### [facility] [address] [address] [address] Ibis Jimenez TYPE AND SCREENon 09-29-2021 TYPE AND SCREEN Negative Normal [facility] Comment on above: Performed By: #### B MP #### [facility] [address] [address] [address] Ibis Jimenez Covid-19 PCR ([facility])on SARS-CoV-2 (COVID-19) RNA SAURABH+probe Ql (Unsp spec) Not detected Normal NOT DETECTED [facility] Comment on above: Result Comment: This test is not yet approved or cleared by the [place] FDA. When there are no FDA-approved or cleared tests available, and other criteria are met, FDA can make tests available under an emergency access mechanism called an Emergency Use Authorization (EUA). The EUA for this test is supported by the [place] of Health and Human Service's (HHS's) declaration [...] SARS-CoV-2. Performed By: #### C VDTBH #### [facility] [address] [place] [address] Dr. Ibis Jimenez TYPE AND SCREENon 09-21-2021 TYPE AND SCREEN Negative Normal [facility] Comment on above: Performed By: #### B MP #### [facility] [address] [place] [address] Dr. Ibis Jimenez CHLAMYDIA/GONOCOCCUS SAURABH ( AB/URINE/PAPon 08-17-2021 Chlamydia trachomatis, SAURABH Negative Normal Negative [facility] Comment on above: Performed By: #### A KORI DAVIS #### [facility] [address] [place] [address] Dr. Ibis Jimenez Neisseria gonorrhoeae, SAURABH Negative Normal Negative [facility] Comment on above: Performed By: #### A RYAN SALYC #### [facility] [address] [place] [address] Dr. Ibis Jimenez CBC AUTO DIFFon 08-14-2021 BASO # 0.0 103/ul Normal 0.0-0.1 [facility] Comment on above: Performed By: #### C VDTBH #### [facility] [address] [place] [address] Dr. Ibis Jimenez Basophils/100 WBC (Bld) 0.3 % Normal 0.2-2.0 [facility] Comment on above: Performed By: #### C VDTBH #### [facility] [address] [place] [address] Dr. Ibis Jimenez EO # 0.2 103/ul Normal 0.0-0.7 [facility] Comment on above: Performed By: #### C VDTBH #### [facility] [address] [place] [address] Dr. Ibis Jimenez Eosinophils/100 WBC (Bld) 2.5 % Normal 0.9-7.0 [facility] Comment on above: Performed By: #### C VDTBH #### [facility] [address] [place] [address] Dr. Ibis Jimenez Erythrocyte distribution width (RBC) [Ratio] 13.0 % Normal 11.0-15.0 [facility] Comment on above: Performed By: #### C VDTBH #### [facility] [address] [place] [address] Dr. Ibsi Jimenez Hematocrit (Bld) [Volume fraction] 38.1 % Normal 36.0-48.0 [facility] Comment on above: Performed By: #### C VDTBH #### [facility] [address] [place] [address] Dr. Ibis Jimenez Hemoglobin (Bld) [Mass/Vol] 12.8 g/dL Normal 12.0-16.0 [facility] Comment on above: Performed By: #### C VDTBH #### [facility] [address] [place] [address] Dr. Ibis Jimenez IG # 0.02 10e3/ul Normal 0.00-0.03 [facility] Comment on above: Performed By: #### C VDTBH #### [facility] [address] [place] [address] Dr. Ibis Jimenez IG % 0.3 % Normal 0.0-0.5 [facility] Comment on above: Performed By: #### C VDTBH #### [facility] [address] [place] [address] Dr. Ibis Jimenez LYMPH # 1.5 103/ul Normal 1.2-3.8 [facility] Comment on above: Performed By: #### C VDTBH #### [facility] [address] [place] [address] Dr. Ibis Jimenez Lymphocytes/100 WBC (Bld) 22.5 % Normal 20.5-60.0 [facility] Comment on above: Performed By: #### C VDTBH #### [facility] [address] [place] [address] Dr. Ibis Jimenez MANUAL DIFF REQ NO Normal [facility] Comment on above: Performed By: #### C VDTBH #### [facility] [address] [place] [address] Dr. Ibis Jimenez MCH (RBC) [Entitic mass] 28.6 pg Normal 26.7-34.0 [facility] Comment on above: Performed By: #### C VDTBH #### [facility] [address] [place] [address] Dr. Ibis Jimenez MCHC (RBC) [Mass/Vol] 33.6 g/dL Normal 29.9-35.2 [facility] Comment on above: Performed By: #### C VDTBH #### [facility] [address] [place] [address] Dr. Ibis Jimenez MCV (RBC) [Entitic vol] 85.0 fL Normal 81.0-99.0 [facility] Comment on above: Performed By: #### C VDTBH #### [facility] [address] [place] [address] Dr. Ibis Jimenez MONO # 0.4 103/ul Normal 0.3-0.8 [facility] Comment on above: Performed By: #### C VDTBH #### [facility] [address] [place] [address] Dr. Ibis Jimenez Monocytes/100 WBC (Bld) 6.3 % Normal 1.7-12.0 [facility] Comment on above: Performed By: #### C VDTBH #### [facility] [address] [place] [address] Dr. Ibis Jimenez NEUT # 4.6 103/ul Normal 1.4-6.5 [facility] Comment on above: Performed By: #### C VDTBH #### [facility] [address] [place] [address] Dr. Ibis Jimenez Neutrophils/100 WBC (Bld) 68.1 % Normal 43.0-75.0 [facility] Comment on above: Performed By: #### C VDTBH #### [facility] [address] [place] [address] Dr. Ibis Jimenez Platelet mean volume (Bld) [Entitic vol] 9.8 fL Normal 9.5-13.5 [facility] Comment on above: Performed By: #### C VDTBH #### [facility] [address], [place] [address] Dr. Ibis Jimenez PLT 243 103/ul Normal 150-450 [facility] Comment on above: Performed By: #### C VDTBH #### [facility] [address], [place] [address] Dr. Ibis Jimenez RBC 4.48 106/ul Normal 4.20-5.40 The [facility] Comment on above: Performed By: #### C VDTBH #### [facility] [address], [place] [address] Dr. Ibis Jimenez WBC 6.7 103/ul Normal 4.0-11.0 [facility] Comment on above: Performed By: #### C VDTBH #### [facility] [address], [place] [address] ABD/PELVIS WO CONon [...] NELI COTTO Date: 2021-08-14 18:00 Normal [facility] ER URINE PROFILEon 2 Bilirubin Ql (U) SMALL Abnormal NEGATIVE [facility] [place] [facility] Comment on above: Performed By: #### B MP #### [facility] [address] [place] [address] Dr. Ibis Jimenez Clarity (U) CLEAR Normal CLEAR [facility] Comment on above: Performed By: #### B MP #### [facility] [address] [place] [address] Dr. Ibis Jimenez Color (U) YELLOW Normal YELLOW [facility] Comment on above: Performed By: #### B MP #### [facility] [address] [place] [address] Dr. Ibis Jimenez ERUSYLVAIN A micrscopic examination will be performed if indicated. Normal [facility] Comment on above: Performed By: #### B MP #### [facility] [address] [place] [address] Dr. Ibis Jimenez Glucose Ql (U) Negative Normal NEGATIVE [facility] Comment on above: Performed By: #### B MP #### [facility] [address] [place] [address] Dr. Ibis Jimenez Hemoglobin Ql (U) SMALL Abnormal NEGATIVE [facility] Comment on above: Performed By: #### B MP #### [facility] [address] [address] [address] Ibis Jimenez Ketones Ql (U) TRACE Abnormal NEGATIVE [facility] Comment on above: Performed By: #### B MP #### [facility] [address] [place] [address] Dr. Ibis Jimenez LEUKOCYTES Negative Normal NEGATIVE [facility] Comment on above: Performed By: #### B MP #### [facility] [address] [place] [address] Dr. Ibis Jimenez Nitrite Ql (U) Negative Normal NEGATIVE [facility] Comment on above: Performed By: #### B MP #### [facility] [address] [place] [address] Dr. Ibis Jimenez pH (U) 5.5 [pH] Normal 5-9 [facility] Comment on above: Performed By: #### B MP #### [facility] [address] [place] [address] Dr. Ibis Jimenez SPEC GRAVITY >=1.030 Abnormal 1.005-<=1.02 5 [facility] Comment on above: Performed By: #### B MP #### [facility] [address] [place] [address] Dr. Ibis Jimenez UA PROTEIN TRACE Normal NEGATIVE/ TRACE [facility] Comment on above: Performed By: #### B MP #### [facility] [address] [place] [address] Dr. Ibis Jimenez UR MICRO IND INDICATED Normal [facility] Comment on above: Performed By: #### B MP #### [facility] [address] [place] [address] Dr. Ibis Jimenez Urobilinogen Qn (U) 1.0 {Dinorah'U}/dL Normal 0.2 - 1. 0 [facility] Comment on above: Performed By: #### B MP #### [facility] [address] [place] [address] Dr. Ibis Jimenez URon 08-14-2021 , QUAL Negative Normal NEGATIVE [facility] Comment on above: Performed By: #### B MP #### [facility] [address] [place] [address] Dr. Ibis Jimenez PROF CHEM 8 (BAS METB)on Anion gap [Moles/Vol] 15.3 mmol/L Normal [facility] Comment on above: Performed By: #### B MP #### [facility] [address] [place] [address] Dr. Ibis Jimenez Calcium [Mass/Vol] 8.4 mg/dL Critically low 8.5-10.1 [facility] Comment on above: Performed By: #### B MP #### [facility] [address] [address] [address] Ibis Jimenez Chloride [Moles/Vol] 106 mmol/L Normal 98-107 [facility] Comment on above: Performed By: #### B MP #### [facility] [address] [address] [address] Ibis Jimenez CO2 [Moles/Vol] 22.3 mmol/L Normal 21.0-32.0 [facility] Comment on above: Performed By: #### B MP #### [facility] [address] [place] [address] Dr. Ibis Jimenez Creatinine [Mass/Vol] 0.75 mg/dL Normal 0.55-1.02 [facility] Comment on above: Performed By: #### B MP #### [facility] [address] [place] [address] Dr. Ibis Jimenez EGFR-AF TURKISH >60 Normal >=60 [facility] [place] [facility] Comment on above: Performed By: #### B MP #### [facility] [address] [address] [address] Ibis Jimenez EGFR-NON AF TURKISH >60 Normal >=60 [facility] Comment on above: Performed By: #### B MP #### [facility] [address] [address] [address] Ibis Jimenez Glucose [Mass/Vol] 107 mg/dL Critically high 74-106 [facility] Comment on above: Performed By: #### B MP #### [facility] [address] [address] [address] Ibis Jimenez Potassium [Moles/Vol] 3.6 mmol/L Normal 3.5-5.1 [facility] Comment on above: Performed By: #### B MP #### [facility] [address] [address] [address] Ibis Jimenez Sodium [Moles/Vol] 140 mmol/L Normal 136-145 [facility] Comment on above: Performed By: #### B MP #### [facility] [address] [address] [address] Ibis Jimenez Urea nitrogen [Mass/Vol] 13.0 mg/dL Normal 7.0-18.0 [facility] Comment on above: Performed By: #### B MP #### [facility] [address] [place] [address] Dr. Ibis Jimenez Urea nitrogen/Creatinine [Mass ratio] 17.3 mg/mg Normal [facility] Comment on above: Performed By: #### B MP #### [facility] [address] [place] [address] Dr. Ibis Jimenez URINE MICROSCOPIC ONLYon BACTERIA TRACE Abnormal NONE SEEN [facility] Comment on above: Performed By: #### B MP #### [facility] [address] [place] [address] Dr. Ibis Jimenez Bacteria identified Cx Nom (U) NOT INDICATED Normal [facility] Comment on above: Performed By: #### B MP #### [facility] [address] [place] [address] Dr. Ibis Jimenez CAST NONE SEEN Normal NONE SEEN [facility] Comment on above: Performed By: #### B MP #### [facility] [address] [place] [address] Dr. Ibis Jimenez Crystals LM Nom (Urine sed) NONE SEEN Normal NONE SEEN [facility] Comment on above: Performed By: #### B MP #### [facility] [address] [place] [address] Dr. Ibis Jimenez Epithelial cells LM Ql (Urine sed) MANY Abnormal NONE SEEN /RARE [facility] Comment on above: Performed By: #### B MP #### [facility] [address] [place] [address] Dr. Ibis Jimenez MUCOUS SMALL Abnormal NONE SEEN [facility] Comment on above: Performed By: #### B MP #### [facility] [address] [place] [address] Dr. Ibis Jimenez RBC 2-5 Abnormal 0-2 [facility] Comment on above: Performed By: #### B MP #### [facility] [address] [place] [address] Dr. Ibis Jimenez WBC 2-5 Abnormal NONE SEEN [facility] Comment on above: Performed By: #### B MP #### [facility] [address] [address] [address] Ibis Jimenez CBC Auto DifferentialOrdered By: Vielka Ching on 12-24-2020 Absolute [employer]os # 0.44 [employer] [facility] Work Phone: Absolute Immature Granulocyte 0.05 [employer] Work Phone: Absolute Lymph # 2.48 [employer] [facility] Work Phone: Absolute Villalba # 0.55 [employer] [facility] Work Phone: Basophils (Bld) [#/Vol] 10*3/uL [employer] Work Phone: Basophils/100 WBC (Bld) 0 % 0 - 2 % [employer] Work Phone: Differential Type NOT REPORTED [employer] Work Phone: Eosinophils/100 WBC (Bld) 5 % High 1 - 4 % [employer] Work Phone: Hematocrit (Bld) [Volume fraction] 37.4 % 36.3 - 47.1 % [employer] Work Phone: Hemoglobin.gastrointest inal spec 1 Ql (Stl) 12.3 g/dL 11.9 - 15.1 g/dL [employer] Phone: Immature granulocytes/100 WBC (Bld) 1 % High 0 [employer] Work Phone: Interpretation and review of laboratory results Abnormal [employer] Phone: Lymphocytes/100 WBC (Bld) 30 % 24 - 43 % [employer] Work Phone: MCH (RBC) [Entitic mass] 28.5 pg 25.2 - 33.5 pg [employer] Work Phone: MCHC (RBC) [Mass/Vol] 32.9 g/dL 28.4 - 34.8 g/dL [employer] Work Phone: MCV (RBC) [Entitic vol] 86.8 fL 82.6 - 102.9 fL [facility] Phone: Monocytes/100 WBC (Bld) 7 % 3 - 12 % [facility] Work Phone: NRBC Automated 0.0 0.0 per 100 WBC [employer] Phone: Platelet distribution width (Bld) [Ratio] 12.7 % 11.8 - 14.4 % [employer] Phone: Platelet Estimate NOT REPORTED [employer] Phone: Platelet mean volume (Bld) [Entitic vol] 9.4 fL 8.1 - 13.5 fL [employer] Phone: Platelets (Bld) [#/Vol] 252 10*3/uL [employer] Phone: RBC (Bld) [#/Vol] 4.31 10*6/uL 3.95 - 5.1 1 m/uL [employer] Work Phone: RBC (Bld) [#/Vol] NOT REPORTED [employer] Phone: Segmented neutrophils/100 WBC (Bld) 57 % 36 - 65 % [employer] Phone: Segs Absolute 4.78 [employer] Work Phone: WBC (Bld) [#/Vol] 8.3 10*3/uL [employer] Work Phone: WBC (Bld) [#/Vol] NOT REPORTED [employer] Phone: [employer] Phone: CBC with Diffon 12-24-2020 Abs. Basophil <0.03 Normal 0.00-0.20 [facility] Comment on above: Performed By: #### C JULIA, CDP #### [facility] [address] [place], [place] [id number] Substitute Nurse: Souleymane Pineda MD Abs.Imm.Granulocyte 0.05 k/uL Normal 0.00-0.30 [facility] Comment on above: Performed By: #### C MPX, CDP #### [facility] [address] [place], [place] [id number] Substitute Nurse: Souleymane Pineda MD Abs.Neutrophil (Seg) 4.78 k/uL Normal 1.50-8.10 [facility] Comment on above: Performed By: #### C MPX, CDP #### [address] [place], [place] [id number] Substitute Nurse: Souleymane Pineda MD Basophils/100 WBC (Bld) 0 % Normal 0-2 [facility] Comment on above: Performed By: #### C MPX, CDP #### [address] [place], [place] [address]83 Substitute Nurse: Souleymane Pineda MD Eosinophils (Bld) [#/Vol] 0.44 10*3/uL Normal 0.00-0.44 [facility] Comment on above: Performed By: #### C MPX, CDP #### [address] [place], [place] [id number] Substitute Nurse: Souleymane Pineda MD Eosinophils/100 WBC (Bld) 5 % High 1-4 [facility] Comment on above: Performed By: #### C MPX, CDP #### [facility] [address] [place] [address] Dr. [place], [place] [address] Substitute Nurse: Souleymane Pineda MD Erythrocyte distribution width (RBC) [Ratio] 12.7 % Normal 11.8-14.4 [facility] Comment on above: Performed By: #### C MPX, CDP #### [facility] [address] [place] [address] [place] [address] Substitute Nurse: Souleymane Pineda MD Hematocrit (Bld) [Volume fraction] 37.4 % Normal 36.3-47.1 [facility] Comment on above: Performed By: #### C MPX, CDP #### [facility] [address] [place] [address] Substitute Nurse: Souleymane Pineda MD Hemoglobin (Bld) [Mass/Vol] 12.3 g/dL Normal 11.9-15.1 [facility] Comment on above: Performed By: #### C MPX, CDP #### [facility] [address] [place] [address] Substitute Nurse: Souleymane Pineda MD Immature granulocytes/100 WBC (Bld) 1 % High 0 [facility] Comment on above: Performed By: #### C MPX, CDP #### [address] [place], [place] [id number] Substitute Nurse: Souleymane Pineda MD Lymphocytes (Bld) [#/Vol] 2.48 10*3/uL Normal 1.10-3.70 [facility] Comment on above: Performed By: #### C MPX, CDP #### [address] [place] [address] Substitute Nurse: Souleymane Pineda MD Lymphocytes/100 WBC (Bld) 30 % Normal 24-43 [facility] Comment on above: Performed By: #### C MPX, CDP #### [facility] [address] [place] [address] Dr. [place], [place] [id number] Substitute Nurse: Souleymane Pineda MD MCH (RBC) [Entitic mass] 28.5 pg Normal 25.2-33.5 [facility] Comment on above: Performed By: #### C MPX, CDP #### [address] [place] [address] Substitute Nurse: Souleymane Pineda MD MCHC (RBC) [Mass/Vol] 32.9 g/dL Normal 28.4-34.8 [facility] Comment on above: Performed By: #### C MPX, CDP #### [facility] [address] [place], [facility] Substitute Nurse: Souleymane Pineda MD MCV (RBC) [Entitic vol] 86.8 fL Normal 82.6-102.9 [facility] Comment on above: Performed By: #### C MPX, CDP #### [address] [place], [facility] Substitute Nurse: Souleymane Pineda MD Monocytes (Bld) [#/Vol] 0.55 10*3/uL Normal 0.10-1.20 [facility] Comment on above: Performed By: #### C MPX, CDP #### [address] [place], [place] [address] Substitute Nurse: Souleymane Pineda MD Monocytes/100 WBC (Bld) 7 % Normal 3-12 [facility] Comment on above: Performed By: #### C MPX, CDP #### [address] [place], [facility]83 Substitute Nurse: Souleymane Pineda MD Neutrophil (Seg) 57 % Normal 36-65 [facility] Comment on above: Performed By: #### C MPX, CDP #### [address] [place], [place] [address] Substitute Nurse: Souleymane Pineda MD NRBC Automated 0.0 per 100 WBC Normal 0.0 [facility] Comment on above: Performed By: #### C MPX, CDP #### [address] [place], [facility]83 Substitute Nurse: Souleymane Pineda MD Platelet mean volume (Bld) [Entitic vol] 9.4 fL Normal 8.1-13.5 [facility] Comment on above: Performed By: #### C MPX, CDP #### [address] [place], [place] [address]83 Substitute Nurse: Souleymane Pineda MD Platelets (Bld) [#/Vol] 252 10*3/uL Normal 138-453 [facility] Comment on above: Performed By: #### C MPX, CDP #### [facility] [address] [place], [place] [id number] Substitute Nurse: Souleymane Pineda MD RBC (Bld) [#/Vol] 4.31 10*6/uL Normal 3.95-5.11 [facility] Comment on above: Performed By: #### C MPX, CDP #### [facility] [address] [place], [place] [address]83 Substitute Nurse: Souleymane Pineda MD WBC (Bld) [#/Vol] 8.3 10*3/uL Normal 3.5-11.3 [facility] Comment on above: Performed By: #### C MPX, CDP #### [facility] [address] [place] [address] Substitute Nurse: Souleymane Pineda MD Auto Diff Performed NOT REPORTED Normal [facility] Comment on above: Performed By: #### C MPX, CDP #### [address] [place], [place] [address]83 Substitute Nurse: Souleymane Pineda MD Platelet Comment NOT REPORTED Normal [facility] Comment on above: Performed By: #### C MPX, CDP #### [facility] [address] [place], [place] [address]83 Substitute Nurse: Souleymane Pineda MD RBC morphology finding Nom (Bld) NOT REPORTED Normal [facility] Comment on above: Performed By: #### C MPX, CDP #### [facility] [address] [place], [place] [address]648[address] Substitute Nurse: Souleymane Pineda MD WBC Morphology NOT REPORTED Normal [facility] Comment on above: Performed By: #### C MPX, CDP #### [facility] [address] [place] [address] Substitute Nurse: Souleymane Pineda MD CT HEAD WO CONTRASTon [...] the orbits demonstrate no acute abnormality. SINUSES: Jrfl-bt-wqvwuiqe paranasal sinus mucosal thickening. SOFT TISSUES/SKULL: No acute abnormality of the visualized skull or soft tissues. IMPRESSION: No acute intracranial abnormality. Interpreted by: Edwin Bentley MD Signed by: Edwin Bentley MD 12/24/20 Final result Normal [facility] CT Head WO ContrastOrdered B y: Vielka [...] the orbits demonstrate no acute abnormality. SINUSES: Gwxc-wy-cbocjlah paranasal sinus mucosal thickening. SOFT TISSUES/SKULL: No acute abnormality of the visualized skull or soft tissues. [facility] Phone: Dimitri, Mhpn Incoming Radiant Results From [email or web address] - 12/24/2020 8:49 PM EDT EXAMINATION: CT [...] the orbits demonstrate no acute abnormality. SINUSES: Rvyc-pv-tlpizhso paranasal sinus mucosal thickening. SOFT TISSUES/SKULL: No acute abnormality of the visualized skull or soft tissues. IMPRESSION: No acute intracranial abnormality. [facility] Phone: [facility] Phone: Comp Metabolic Pr/rfx MGon 1 02-24-2020 Bilirubin [Mass/Vol] mg/dL Low 0.3-1.2 [facility] Comment on above: Performed By: #### C MPX, CDP #### [facility] [address] [place] [address] Substitute Nurse: Souleymane Pineda MD (cont.) Normal [facility] Comment on above: Result Comment: Aver age GFR for 20-29 years old: 116 mL/min/1.73sq m Chronic Kidney Disease: <60 mL/min/1.73sq m Kidney failure: <15 mL/min/1.73sq m eGFR calculated using average adult body mass. Additional eGFR calculator available at: http://www.[employer]/multiple_crcl_2012.htm Performed By: #### C MPX, CDP #### [facility] [address] [place] [address] Dr. [place], [place] [id number] Substitute Nurse: Souleymane Pineda MD Albumin [Mass/Vol] 4.0 g/dL Normal 3.5-5.2 [facility] Comment on above: Performed By: #### C MPX, CDP #### [facility] [address] [place] [address] Dr. [place], [place] [id number] Substitute Nurse: Souleymane Pineda MD Albumin/Glob Ratio 1.5 Normal 1.0-2.5 [facility] Comment on above: Performed By: #### C MPX, CDP #### [facility] [address] [place] [address] Dr. [place], [place] [id number] Substitute Nurse: Souleymane Pineda MD Alkaline Phos 90 U/L Normal 35-104 [facility] Comment on above: Performed By: #### C MPX, CDP #### [address] [place], [place] [address]683 Substitute Nurse: Souleymane Pineda MD ALT [Catalytic activity/Vol] 40 U/L High 5-33 [facility] Comment on above: Performed By: #### C MPX, CDP #### [facility] [address] [place], [place] [address]83 Substitute Nurse: Souleymane Pineda MD Anion gap [Moles/Vol] 11 mmol/L Normal 9-17 [facility] Comment on above: Performed By: #### C MPX, CDP #### [facility] [address] [place] [address] Dr. [place], [place] [address]12783 Substitute Nurse: Souleymane Pineda MD AST [Catalytic activity/Vol] 19 U/L Normal <32 [facility] Comment on above: Performed By: #### C MPX, CDP #### [facility] [address] [place], [place] [address]83 Substitute Nurse: Souleymane Pineda MD BUN/CRE Ratio 15 Normal 9-20 [facility] Comment on above: Performed By: #### C MPX, CDP #### [facility] [address] [place], [place] [address]83 Substitute Nurse: Souleymane Pineda MD Calcium [Mass/Vol] 8.9 mg/dL Normal 8.6-10.4 [facility] Comment on above: Performed By: #### C MPX, CDP #### [facility] [address] [place], [place] [address]83 Substitute Nurse: Souleymane Pineda MD Chloride [Moles/Vol] 104 mmol/L Normal 98-107 [facility] Comment on above: Performed By: #### C MPX, CDP #### [facility] [address] [place], [place] [address]783 Substitute Nurse: Souleymane Pineda MD CO2 [Moles/Vol] 24 mmol/L Normal 20-31 [facility] Comment on above: Performed By: #### C MPX, CDP #### [facility] [address] [place], [place] [address] Substitute Nurse: Souleymane Pineda MD Creatinine [Mass/Vol] 0.60 mg/dL Normal 0.50-0.90 [facility] Comment on above: Performed By: #### C MPX, CDP #### [facility] [address] [place] [address] Substitute Nurse: Souleymane Pineda MD GFR, Amer >60 Normal >60 [facility] Comment on above: Performed By: #### C MPX, CDP #### [facility] [address] [place] [address] Substitute Nurse: Souleymane Pineda MD GFR,non Amer >60 Normal >60 [facility] Comment on above: Performed By: #### C MPX, CDP #### [facility] [address] [place], [place] 6457483 Substitute Nurse: Souleymane Pineda MD Glucose [Mass/Vol] 91 mg/dL Normal 70-99 [facility] Comment on above: Performed By: #### C MPX, CDP #### [facility] [address] [place], [place] 12[address] Substitute Nurse: Souleymane Pineda MD Potassium [Moles/Vol] 4.0 mmol/L Normal 3.7-5.3 [facility] Comment on above: Performed By: #### C MPX, CDP #### [address] [place], [place] [address]283 Substitute Nurse: Souleymane Pineda MD Protein [Mass/Vol] 6.7 g/dL Normal 6.4-8.3 [facility] Comment on above: Performed By: #### C MPX, CDP #### [address] [place], [place] [address]83 Substitute Nurse: Souleymane Pineda MD Sodium [Moles/Vol] 139 mmol/L Normal 135-144 [facility] Comment on above: Performed By: #### C MPX, CDP #### [facility] [address] [place] [address] Dr. [place], [place] [id number] Substitute Nurse: Souleymane Pineda MD Staging: Normal [facility] Comment on above: Result Comment: Stag e 1: Some kidney damage normal GFR Stage 2: Mild kidney damage GFR 60-89 Stage 3: Moderate kidney damage GFR 30-59 Stage 4: Severe kidney damage GFR 15-29 Stage 5: Severe kidney damage GFR <15 ESRD - chronic treatment by dialysis or transplant Performed By: #### C MPX, CDP #### [facility] [address] [place] [address] [place] [address] Substitute Nurse: Souleymane Pineda MD Urea nitrogen [Mass/Vol] 9 mg/dL Normal 6-20 [facility] Comment on above: Performed By: #### C MPX, CDP #### [facility] [address] [place] [address] Substitute Nurse: Souleymane Pineda MD Comprehensive Metabolic Pane l w/ Reflex to MGOrdered By: Vielka Ching on 12-24-2020 Albumin [Mass/Vol] 4 g/dL 3.5 - 5.2 g/dL [facility] Phone: Albumin/Globulin [Mass ratio] 1.5 {ratio} [facility] Phone: ALP (Bld) [Catalytic activity/Vol] 90 U/L 35 - 104 U/L [facility] Phone: ALT [Catalytic activity/Vol] 40 U/L High 5 - 33 U/L [facility] Phone: Anion gap [Moles/Vol] 11 mmol/L 9 - 17 mmol/L [facility] Phone: AST [Catalytic activity/Vol] 19 U/L <32 [facility] Phone: Bilirubin [Mass/Vol] mg/dL Low 0.3 - 1 .2 mg/dL [facility] Phone: Calcium [Mass/Vol] 8.9 mg/dL 8.6 - 10. 4 mg/dL [facility] Phone: Chloride [Moles/Vol] 104 mmol/L 98 - 10 7 mmol/L [facility] Phone: CO2 [Moles/Vol] 24 mmol/L 20 - 31 mmol/L [facility] Phone: Creatinine [Mass/Vol] 0.6 mg/dL 0.50 - 0.90 mg/dL [facility] Phone: Free PSA/Total PSA [Mass fraction] 6.7 g/dL 6.4 - 8.3 g/dL [facility] Phone: GFR >60 >60 mL/min [facility] Phone: GFR Non- >60 >60 mL/min [facility] Phone: Glucose [Mass/Vol] 91 mg/dL 70 - 99 mg/dL [facility] Phone: Interpretation and review of laboratory results Abnormal [facility] Phone: Potassium [Moles/Vol] 4.0 mmol/L 3.7 - 5.3 mmol/L [facility] Phone: Sodium [Moles/Vol] 139 mmol/L 135 - 144 mmol/L [facility] Phone: Urea nitrogen (BldV) [Mass/Vol] 9 mg/dL 6 - 20 mg/dL [facility] Phone: Urea nitrogen/Creatinine (Bld) [Mass ratio] 15 [facility] Phone: [facility] Phone: Laboratory - Chemistry and C hemistry - challengeOrdered By: Vielka Ching on 12-24-2020 GFR/1.73 sq M.predicted MDRD (S/P/Bld) [Vol rate/Area] [facility] Phone: Comment on above: Average GFR for 20-2 9 years old: 116 mL/min/1.73sq m Chronic Kidney Disease: <60 mL/min/1.73sq m Kidney failure: <15 mL/min/1.73sq m eGFR calculated using average adult body mass. Additional eGFR calculator available at: http://www.[employer]/multiple_crcl_2012.htm Stage 1: Some kidney damage normal GFR Stage 2: Mild kidney damage GFR 60-89 Stage 3: Moderate kidney damage GFR 30-59 Stage 4: Severe kidney damage GFR 15-29 Stage 5: Severe kidney damage GFR <15 ESRD - chronic treatment by dialysis or transplant Vital Signs Date Time Vital Sign Value Performing Clinician Anup mccray 04-14-2023 11:08-0500 Diastolic blood pressure 62 mm[Hg] Infusion 7 Work Phone: [facility] 04-14-2023 11:08-0500 Heart rate 84 /min Infusion 7 Work Phone: [facility] 04-14-2023 11:08-0500 Systolic blood pressure 109 mm[Hg] Infusion 7 Work Phone: [facility] 04-13-2023 10:50-0500 Diastolic blood pressure 63 mm[Hg] Infusion 7 Work Phone: [facility] 04-13-2023 10:50-0500 Heart rate 86 /min Infusion 7 Work Phone: [facility] 04-13-2023 10:50-0500 Systolic blood pressure 127 mm[Hg] Infusion 7 Work Phone: [facility] 04-12-2023 13:45-0500 Diastolic blood pressure 58 mm[Hg] Infusion 7 Work Phone: [facility] 04-12-2023 13:45-0500 Heart rate 79 /min Infusion 7 Work Phone: [facility] 04-12-2023 13:45-0500 Systolic blood pressure 120 mm[Hg] Infusion 7 Work Phone: [facility] 11-11-2022 10:55-0400 Diastolic blood pressure 63 mm[Hg] Infusion 8 Work Phone: [facility] 11-11-2022 10:55-0400 Heart rate 83 /min Infusion 8 Work Phone: [facility] 11-11-2022 10:55-0400 Systolic blood pressure 110 mm[Hg] Infusion 8 Work Phone: [facility] 07-28-2022 10:15-0400 Diastolic blood pressure 50 mm[Hg] Infusion 8 Work Phone: [facility] 07-28-2022 10:15-0400 Heart rate 80 /min Infusion 8 Work Phone: [facility] 07-28-2022 10:15-0400 Systolic blood pressure 105 mm[Hg] Infusion 8 Work Phone: [facility] 12-03-2021 09:47-0400 Diastolic blood pressure 81 mm[Hg] Jesse Salima MORENO Work Phone: [facility] 12-03-2021 09:47-0400 Heart rate 66 /min Jesse Samples Work Phone: [facility] 12-03-2021 09:47-0400 SaO2% (BldA) [Mass fraction] 100 % Jesse Samples Work Phone: [facility] 12-03-2021 09:47-0400 Systolic blood pressure 131 mm[Hg] Jesse Samples Work Phone: [facility] 10-20-2021 12:00-0400 Diastolic blood pressure 101 mm[Hg] uLcila Mota MD [facility] 10-20-2021 12:00-0400 Heart rate 85 /min Lucila Mota MD [facility] 10-20-2021 12:00-0400 Respiratory rate 12 /min Lucila [facility]ota MD [facility] 10-20-2021 12:00-0400 SaO2% (BldA) [Mass fraction] 98 % Lucila Mota MD Work Phone: [facility] [employer] 10-20-2021 12:00-0400 Systolic blood pressure 136 mm[Hg] Lucila Mota MD Work Phone: [facility] [employer] 10-20-2021 08:00-0400 Body temperature 98.2 [degF] Lucila [facility]ota MD [facility] 12-24-2020 19:36-0400 Body temperature 99 [degF] Vielka Ching DO Work Phone: [employer] Work Phone: 12-24-2020 19:36-0400 Diastolic blood pressure 80 mm[Hg] Vielka Ching DO Work Phone: [employer] Work Phone: 12-24-2020 19:36-0400 Heart rate 108 /min Vielka Ching DO Work Phone: [employer] Work Phone: 12-24-2020 19:36-0400 Respiratory rate 20 /min Vielka Ching DO Work Phone: [employer] Work Phone: 12-24-2020 19:36-0400 SaO2% (BldA) [Mass fraction] 96 % Vielka Ching [employer] Work Phone: [facility] Phone: 12-24-2020 19:36-0400 Systolic blood pressure 136 mm[Hg] Vielka Ching DO Work Phone: [employer] Work Phone: Encounters Encounter Date Encounter Type Care Provider Facility Start: 04-14-2023 End: 04-14-2023 ambulatory SUZAN DRIVER Facility:[facility] Start: 04-14-2023 End: 04-14-2023 ambulatory Infusion Main Chair 7 Work Phone: Neurology Comment on above: Chronic migraine wit hout aura, with intractable migraine, so stated, with status migrainosus (Primary Dx); 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 with status migrainosus Start: 04-14-2023 End: 04-14-2023 Patient encounter procedure Suzan Driver [employer]PLANE ELECTRICAL REPA[employer] Work Phone: Neurology Comment on above: 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 with status migrainosus (Primary Dx); 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 without status migrainosus Start: 04-13-2023 Telephone encounter Logan Barth APRN.LAND PL[employer] Work Phone: Neurology Comment on above: Appointment (Patient currently receiving infusions for headache. She is interested in learning about reboot program. Please schedule patient for evaluation if appropriate to proceed.) Start: 04-13-2023 End: 04-13-2023 ambulatory SUZAN DRIVER Facility:[facility] Start: 04-13-2023 End: 04-13-2023 ambulatory Infusion Main Chair 7 Work Phone: Neurology Comment on above: Chronic migraine wit hout aura, with intractable migraine, so stated, with status migrainosus (Primary Dx); 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 with status migrainosus Start: 04-12-2023 End: 04-12-2023 ambulatory SUZAN PUENTEGEO Facility:[facility] Start: 04-12-2023 End: 04-12-2023 ambulatory SUZAN PUENTEGEO Facility:[facility] Start: 04-12-2023 End: 04-12-2023 Patient encounter procedure Suzan Bidgeo [employer] Work Phone: Neurology Comment on above: 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 with status migrainosus (Primary Dx) Start: 04-12-2023 End: 04-12-2023 ambulatory Infusion Main Chair 7 Work Phone: Neurology Comment on above: Chronic migraine wit hout aura, with intractable migraine, so stated, with status migrainosus (Primary Dx); 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 with status migrainosus Start: 03-27-2023 Telephone encounter Angely rousseau RN Work Phone: [facility] Comment on above: Insurance Authorizat ion (Aimovig 70MG/ML auto-injectors/) Start: 03-23-2023 End: 03-23-2023 ambulatory LOGAN BARTH Facility:[facility] Start: 03-22-2023 End: 03-22-2023 ambulatory SUZAN NEISHA Facility:[facility] Start: 03-21-2023 End: 03-21-2023 ambulatory SPENSER SHAY Not Available Start: 03-20-2023 End: 03-20-2023 ambulatory ZAY BLAS Not Available Start: 03-07-2023 End: 03-07-2023 ambulatory ZAY BLAS Not Available Start: 02-17-2023 ambulatory Ramsey Nunn acility:[facility] Start: 02-07-2023 End: 02-07-2023 ambulatory ZAY LEONARDO Not Available Start: 01-26-2023 End: 01-26-2023 ambulatory ZAY LEONARDO Not Available Start: 12-13-2022 Refill Cameroni Green APR [employer] Work Phone: Neurology Headache Psychiatric Comment on above: Refill Request Infusion (HEADACHE I NFUSIONS) Start: 12-12-2022 End: 12-12-2022 ambulatory KOLI GREEN Facility:[facility] Start: 12-09-2022 Refill Ольга Arredondol er [employer]PLANE ELECTRICAL REPAIRER[employer]NER Work Phone: Neurology Comment on above: Refill Request Start: 11-11-2022 End: 11-11-2022 ambulatory Infusion Main Chair 8 Work Phone: Neurology Comment on above: 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 with status migrainosus (Primary Dx) Start: 11-10-2022 End: 11-10-2022 ambulatory ОЛЬГА J JEFF Facility:[facility] Start: 11-10-2022 End: 11-10-2022 ambulatory Ольга Lantigua Jeff [employer]PLANE ELECTRICAL REPAIRER.[employer]NER Work Phone: Neurology Comment on above: 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 with status migrainosus (Primary Dx) Nerve block Start: 11-10-2022 Telephone encounter Suzan dinero APRN.[employer] Work Phone: Neurology Comment on above: Infusion Start: 11-10-2022 End: 11-10-2022 Telemedicine consultation with patient Ольга Arredondoler AIRPLANE ELECTRICAL REPAIRER.[employer] PL[employer]NER Work Phone: [facility] Start: 10-12-2022 End: 10-12-2022 ambulatory Suzan Driver APRN.[employer] Work Phone: Neurology Comment on above: Botox Start: 10-12-2022 E-mail encounter fro m caregiver Suzan Driver APRN.[employer] PL[employer] Work Phone: [facility] Start: 09-29-2022 Telephone encounter Angely rousseau RN Work Phone: [facility] Comment on above: Insurance Authorizat ion (Zomig 5MG nasal spray/) Start: 09-27-2022 ambulatory Logan Barth APR [employer] Work Phone: [facility] Comment on above: My apt Monday Start: 09-16-2022 ambulatory Logan Tab APR [employer] Work Phone: [facility] Start: 09-16-2022 Patient encounter procedure Logan Barth AIRPLANE ELECTRICAL REPAIRER.[employer] PL[employer]NER Work Phone: [facility] HEADACHE [facility] Comment on above: Appointment Start: 09-12-2022 End: 09-12-2022 ambulatory LOGAN BARTH Facility:[facility] Start: 08-31-2022 End: 08-31-2022 ambulatory LOGAN BARTH Facility:[facility] Start: 08-31-2022 End: 08-31-2022 ambulatory Logan Barth AIRPLANE ELECTRICAL REPAIRER[employer]NER Work Phone: Neurology Comment on above: Chronic migraine w/o aura, not intractable, w/o stat migr (Primary Dx) Start: 08-31-2022 End: 08-31-2022 Telemedicine consultation with patient Logan Barth APRN.[employer] PL[employer] Work Phone: [facility] Start: 08-09-2022 ambulatory Logan Barth APR [employer] Work Phone: [facility] Comment on above: Pain Start: 08-08-2022 End: 08-08-2022 ambulatory Jesse Wharton MD Work Phone: Neurology Comment on above: 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 with status migrainosus (Primary Dx) Start: 08-08-2022 End: 08-08-2022 Telemedicine consultation with patient Jesse Wharton MD Work Phone: [facility] Start: 08-07-2022 ambulatory Jesse rick MD Work Phone: Neurology Comment on above: Name of medication Start: 07-29-2022 End: 07-29-2022 ambulatory MARIA DEL ROSARIO HAHN Facility:[facility] Start: 07-28-2022 End: 07-28-2022 ambulatory MARIA DEL ROSARIO HAHN Facility:[facility] Start: 07-28-2022 End: 07-28-2022 ambulatory Infusion Main Chair 8 Work Phone: Neurology Comment on above: 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 with status migrainosus (Primary Dx) Start: 07-27-2022 End: 07-27-2022 ambulatory MARIA DEL ROSARIO HAHN Facility:[facility] Start: 07-21-[address] ZAY BLAS . Facili ty:[facility] Start: 07-14-2022 Encounter for other preprocedural examination DR ZAY BLAS . [facility] Start: 07-12-2022 End: 07-13-[address] ZAY BLAS . Facility:[facility] Start: 07-12-2022 End: 07-13-2022 Encounter for other preprocedural examination DR ZAY BLAS . Facility:[facility] Start: 07-05-2022 ambulatory KRISTOFER Nunn acility:[facility] Start: 06-27-2022 Telephone encounter Logan Barth APRN.[employer] PL[employer] Work Phone: Neurology Comment on above: Appointment (infusio n) Start: 06-24-2022 End: 06-24-2022 ambulatory LOGAN BARTH Facility:[facility] Start: 06-20-2022 End: 06-20-2022 ambulatory MANJINDER DEAL Facility:[facility] Start: 06-19-2022 End: 06-19-2022 ambulatory CHAYITO NARVAEZ . Facility:[facility] Start: 06-13-2022 Admission to establishment Jesse Wharton MD Work Phone: Neurology Comment on above: Admission Start: 06-13-2022 ambulatory Jesse rick MD Work Phone: [facility] Start: 06-11-2022 End: 06-11-2022 ambulatory DENNIS ALSTON . Facility:[facility] Start: 06-08-2022 End: 06-08-2022 ambulatory MARY PAULINO . Facility:[facility] Start: 06-07-2022 ambulatory Jesse rick MD Work Phone: Neurology Comment on above: Migraines Start: 05-23-2022 End: 05-24-2022 ambulatory PATRICIA WALSH Facility:[facility] Start: 05-08-2022 End: 05-08-2022 ambulatory LUH Damon Facility:[facility] Start: 03-31-2022 End: 04-01-[address] ANGÉLICA [...] with patient Nelly Saldaña PA-C Work Phone: [facility] Start: 11-09-2021 ambulatory Tyrone Dolan MD, PhD Work Phone: [facility] Start: 11-09-2021 Patient encounter procedure Tyrone Dolan MD, PhD Work Phone: Neurology Comment on above: Request Veido appoin tment Start: 11-08-2021 ambulatory Tyrone Dolan MD, PhD Work Phone: [facility] Start: 11-08-2021 Patient encounter procedure [...] patient Tyrone Dolan MD, PhD Work Phone: [facility] Start: 10-26-2021 Patient encounter procedure Román Storey MD Work Phone: Neurology Comment on above: Seizure-like activit y (HCC) (Primary Dx) Start: 10-19-2021 End: 10-20-2021 Evaluation and management of inpatient LUCILA MOTA [facility] Start: 10-19-2021 End: 10-20-2021 Evaluation and management of inpatient Lucila Mota MD Work Phone: [address] Neuro ICU Start: 10-19-2021 End: 10-19-2021 ambulatory SHAIKH Joseph WALLS Facility:[facility] Start: 10-07-2021 End: 10-07-[address] ZAY BLAS . Facility:[facility] Start: 10-06-2021 End: 10-06-2021 ambulatory SUKHDEEP DOCKERY Facility:[facility] Start: 10-03-2021 End: 10-04-2021 ambulatory MANJINDER DEAL Facility:[facility] Start: 10-01-2021 End: 10-02-2021 Evaluation and management of inpatient DR ANGÉLICA ARTHUR Facility:[facility] Start: 10-01-2021 Encounter for preprocedural laboratory examination DR ZAY BLAS . [facility] Start: 09-29-2021 End: 09-30-[address] ZAY BLAS . Facility:[facility] Start: 09-29-2021 End: 09-30-2021 Encounter for preprocedural laboratory examination DR ZAY BLAS . Facility:[facility] Start: 09-21-2021 End: 09-22-[address] ANGÉLICA ARTHUR Facility:[facility] Start: 09-14-2021 End: 09-15-[address] ANGÉLICA ARTHUR Facility:[facility] Start: 08-14-2021 End: 08-14-2021 ambulatory BLUE GRACE Facility:[facility] Start: 08-14-2021 End: 08-14-2021 ambulatory BLUELIZZETTE GRACE Facility:[facility] Start: 12-24-2020 End: 12-24-2020 Emergency department patient visit ANGÉLICA ARTHUR [facility] Start: 12-24-2020 End: 12-24-2020 Emergency department patient visit Vielka Ching DO Work Phone: [facility] ED Comment on above: Migraine without sta tus migrainosus, not intractable, unspecified migraine type (Primary Dx) Start: 02-18-2020 End: 02-18-2020 Telephone encounter Román Storey Work Phone: Neurology Comment on above: Future Appointment ( [place], [place], [place]) Procedures Date Procedure Procedure Detail Performing Clinician Start: 10-29-2021 Adult depression scr eening assessment Tyrone Dolan MD, PhD Work Phone: Start: 10-20-2021 EEG VIDEO MONITORING Marcy altman Chris AIRPLANE ELECTRICAL REPAIRER - [employer] Work Phone: Start: 10-20-2021 BASIC METABOLIC PANE L W/ REFLEX TO MG FOR LOW K Puri Rikki Mota MD Work Phone: Start: 10-20-2021 Blood count complete auto&auto difrntl wbc Lo Perez AIRPLANE ELECTRICAL REPAIRER - [employer] Work Phone: Start: 10-20-2021 IMMATURE PLATELET FRACTION Lo Perez [employer]PL[employer] ELECTRICAL REPAIRER - [employer] Work Phone: Start: 10-19-2021 Assay of lactate Madiso radha Perez AIRPLANE ELECTRICAL REPAIRER - [employer] Work Phone: Start: 10-19-2021 Ecg routine ecg w/le ast 12 lds w/i&r Lo Perez [employer]PL[employer] ELECTRICAL REPAIRER - [employer] Work Phone: Start: 10-19-2021 Mri brain brain stem w/o w/contrast material Lo Perez AIRPLANE ELECTRICAL REPAIRER - [employer] Work Phone: Start: 10-19-2021 RESPIRATORY CARE EVALUATION ONLY oL Perez AIRPLANE ELECTRICAL REPAIRER - [employer]AND PL[employer]NER Work Phone: Start: 10-01-2021 Resection of Bilater [...] vaccine (7 - Td or Tdap) [facility] Start: 09-20-2025 Urine microalbumin profile [facility] Start: 02-20-2023 Depression Assessment Depression Ass [facility] Start: 10-29-2022 Adult depression screening assessment DEPRESSION SCREENING [facility] Start: 10-21-2022 Influenza vaccination [facility] Start: 02-20-2022 DEPRESSION ASSESSMENT DEPRESSION ASS [facility] Start: 10-26-2021 End: 10-26-2022 SARS-CoV-2 (COVID-19) RNA [Presence] in Respiratory specimen by SAURABH with probe detection PRE-PROCEDURE & PRE-OPERATIVE COVID Microbiology Routine Seizure-like activity (HCC) Expected: 10/26/2021, Expires: 10/26/2022 [facility] Work Phone: Comment on above: Expected: 10/26/2021 , Expires: 10/26/2022 Start: 10-21-2021 Influenza vaccination [facility] Start: 02-20-2021 DEPRESSION ASSESSMENT DEPRESSION ASS [facility] Start: 10-21-2020 Influenza vaccination Flu vaccine (# 1) [employer] Work Phone: Start: 11-13-2016 PAP TESTING PAP TESTING [facility] Start: 11-13-2016 Screening for malign ant neoplasm of cervix [facility] Start: 11-13-2014 Urine microalbumin profile [facility] Start: 11-13-2013 Hepatitis C screening [facility] Start: 11-13-2013 HEPATITIS C SCREENING HEPATITIS C SC KALE [facility] Start: 11-13-2013 HIV SCREENING HIV SCREENING [facility] Start: 11-13-2013 HIV screening HIV Screening [facility] Start: 2011 Screening for Chlamy rose trachomatis Chlamydia screen [facility] [employer] Start: 11-13-2010 HIV screening HIV screen [facility] Start: 11-13-2009 PEDS TO ADULT TRANSITION ANNUAL ASSESSMENT PEDS TO ADULT TRANSITION ANNUAL ASSESSMENT [facility] Start: 2007 Adult depression screening assessment DEPRESSION SCREENING [facility] Start: 2007 COVID-19 Vaccine (1) COVID-19 Vaccin e (1) [facility] Phone: Start: 2007 [facility] Start: 2007 PEDS TO ADULT TRANSITION INITIAL DISCUSSION PEDS TO ADULT TRANSITION INITIAL DISCUSSION [facility] Start: 11-13-2006 HPV VACCINE (1 - 2-d ose series) HPV VACCINE (1 - 2-dose series) [facility] Start: 11-13-2004 HPV VACCINE (1 - 2-d ose series) HPV VACCINE (1 - 2-dose series) [facility] Start: 05-13-1996 COVID-19 Vaccine (#1) COVID-19 Vacci ne (#1) [facility] Start: 1995 HEPATITIS B (1 of 3 - 3-dose series) HEPATITIS B (1 of 3 - 3-dose series) [facility] Start: 1995 Hepatitis B Vaccine (1 of 3 - 3-dose series) Hepatitis B Vaccine (1 of 3 - 3-dose series) [facility] Start: 1995 Hepatitis C screening Hepatitis [facility] Phone: End: 10-26-2021 Basic Metabolic Panel w/ Reflex to MG Basic Metabolic Panel w/ Reflex to MG Lab Routine Daily for 7 Days starting 10/20/2021 until 10/26/2021 [facility] [employer] Phone: Comment on above: Daily for 7 Days sta rting 10/20/2021 until 10/26/2021 End: 10-26-2021 CBC W Auto Differential panel - Blood CBC with Auto Differential Lab Routine Daily for 7 Days starting 10/20/2021 until 10/26/2021, 1 completed [employer] Work Phone: Comment on above: Daily for 7 Days sta rting 10/20/2021 until 10/26/2021, 1 completed EKG 12 Lead EKG 12 Lead ECG Routine 10/19/2021 5:55 PM EDT [employer] Work Phone: End: 10-29-2022 EPIL AMBULATORY EEG EPIL AMBULATORY EEG NEUROLOGY Routine Psychogenic nonepileptic seizure Spells of trembling 1 Occurrences starting 10/29/2021 until 10/29/2022 [facility] Work Phone: Comment on above: 1 Occurrences starti ng 10/29/2021 until 10/29/2022 End: 10-26-2022 EPIL EEG LEAD PLACEMENT EPIL EEG LEAD PLACEMENT NEUROLOGY Routine Seizure-like activity (HCC) 1 Occurrences starting 10/26/2021 until 10/26/2022 [facility] Work Phone: Comment on above: 1 Occurrences starti ng 10/26/2021 until 10/26/2022 End: 11-08-2022 EPIL EEG ROUTINE EPIL EEG ROUTINE NEUROLOGY Routine Seizure-like activity (HCC) 1 Occurrences starting 11/08/2021 until 11/08/2022 [facility] Work Phone: Comment on above: 1 Occurrences starti ng 11/08/2021 until 11/08/2022 EPIL VEEG ADMIT TO EMU/PMU EPIL VEEG ADMIT TO EMU/PMU NEUROLOGY Routine Seizure-like activity (HCC) Ordered: 10/26/2021 [facility] Work Phone: Comment on above: Ordered: 10/26/2021 Oxygen therapy [[facility] Data Set] Initiate Oxygen Therapy Protocol Respiratory Care Routine As Needed until discontinued starting 10/19/2021 [employer] Work Phone: Comment on above: As Needed until disc ontinued starting 10/19/2021 [facility] Immunizations Immunization Date Immunization Notes Care Provider Preethi black 12-08-2017 influenza virus vacc ine, unspecified formulation Suzan Driver APRN[employer] Work Phone: [facility] Payers Date Payer Category Payer Self-pay 2017 Medicaid [place] [employer] [place] [employer] [id number] 2017-Present Medicaid [id number] 2013 Medicaid [id number] 2011 Unknown 1995 Unknown [id number] 2.16.840.1.553266.3.579.2.173 1995 Unknown [id number] 2.16840.1.288876.3.579.2.175 1995 Unknown [id number] 2.16840.1.446326.3.579.2.727 1995 Unknown [id number] 2.16840.1.755536.3.579.2.593 1995 Unknown [id number] 2.16.840.1.596759.3.579.2.593 1995 Unknown [id number] 2.16.840.1.231487.3.579.2.593 1995 Unknown [id number] 2.16.840.1.333628.3.579.2.593 1995 Unknown [id number] 2.16840.1.068219.3.579.2.593 1995 Unknown [id number] 2.16.840.1.729175.3.579.2.593 1995 Unknown [id number] 2.16.840.1.796117.3.579.2.593 1995 Unknown [id number] 2.16.840.1.164652.3.579.2.593 1995 Unknown [id number] 2.16.840.1.490152.3.579.2.593 1995 Unknown [id number] 2.16.840.1.442178.3.579.2.593 1995 Unknown [id number] 2.16.840.1.106996.3.579.2.593 1995 Unknown [id number] 2.16840.1.820013.3.579.2.593 1995 Unknown [id number] 2.16840.1.111459.3.579.2.593 1995 Unknown [id number] 2.16840.1.418303.3.579.2.593 1995 Unknown [id number] 2.16840.1.923210.3.579.2.593 1995 Unknown [id number] 2.16840.1.463514.3.579.2.593 1995 Unknown [id number] 2.16840.1.172839.3.579.2.593 1995 Unknown [id number] 2.16.840.1.455226.3.579.2.593 1995 Unknown [id number] 2.16.840.1.991936.3.579.2.593 1995 Unknown [id number] 2.16.840.1.703600.3.579.2.593 1995 Unknown [id number] 2.16840.1.538514.3.579.2.593 1995 Unknown [id number] 2.16.840.1.001253.3.579.2.593 1995 Unknown [id number] 2.16.840.1.407931.3.579.2.9 1995 Unknown [id number] 2.16.840.1.876299.3.579.2.9 1995 Unknown [id number] 2.16.840.1.354001.3.579.2.9 1995 Unknown [id number] 2.16.840.1.693897.3.579.2.9 1995 Unknown [id number] 2.16.840.1.294396.3.579.2.1259 1959 Unknown [id number] [id number] [id number] Social History Date Type Detail Facility Tobacco smoking stat [facility] Unknown if ever smoked [facility] Start: 1995 Sex Assigned At Not on file [facility] Start: 12-24-2020 End: 10-12-2022 Tobacco smoking status WAIS Never smoker [facility] Phone: Start: 12-24-2020 End: 10-12-2022 Tobacco use and exposure Never used [facility] Start: 12-24-2020 Alcohol intake Ex-drinker (finding) [employer] Phone: Start: 10-16-2021 End: 07-28-2022 Exposure to SARS-CoV-2 (event) Not sure [facility] Tobacco smoking stat [facility] Tobacco smoking consumption unknown [facility] Work Phone: Start: 06-23-2022 End: 08-08-2022 History of Social function [facility] Start: 06-23-2022 End: 08-08-2022 Patient Health Questionnaire 2 item (PHQ-2) [Reported] [facility] Adult Depression Screening Assessment 2 [facility] Clinical Notes 12-24-2020 to 04-14-2023 Patient InstructionsBiSuzan grace APRN.[employer] - 04/14/2023 8:30 AM Inocencio Braun, PRATIBHA - 04/14/2023 8:19 AM Johana Jones, PRATIBHA - 04/13/2023 9:39 AM ESTPatient InstructionsAttachments Note Date & Type Note Facility 04-14-2023 Instructions Suzan Driver APRN.[facility] - 04/14/2023 10:49 AM EST Follow up/ discharge plan: f/u in 3 months Start aimovig this weekend Aimovig Information Aimovig is a CGRP monoclonal antibody (MAB). CGRP is a substance in the brain that plays a chong role in causing migraine. Aimovig was specifically developed to block the CGRP receptor, so that CGRP cannot attach to it, thus preventing migraine. Aimovig is a once monthly injection to help prevent migraine. Try to inject on the same date each month (such as the of each month or the of each month) so that you can keep track of when your injection is due. Schedule a follow up appointment after the 3rd month of injections so we can evaluate efficacy. It can take 3-6 months of injections to notice improvement in migraine frequency and/or severity. Most patients tolerate Aimovig well. The most common side effects are constipation, worsening high blood pressure, and injection site reactions (bleeding, bruising, rash). Go to the website to learn more about Aimovig, download the copay card, and watch the video on how to give the injection: [email or web address].[email or web address] Aimovig must be approved by your insurance company through a prior authorization process which usually takes a few weeks. If it is denied, please let us know. If you have trouble getting your medication from the pharmacy and they need information for the prior authorization process, please let us know, because your pharmacy does not always contact us. Your pharmacy will not fill this medication (even if you have refills at the pharmacy) if this med has not been approved by your insurance or if the prior authorization has . Eventually the prior auth will (usually after 3-12 months, depending on your insurance). A new appointment is required in order for the prior authorization to be renewed. If this med is approved, please ask your insurance or pharmacy the prior authorization expiration date and make sure you have an appointment with us at least 3-4 weeks before it expires so that you are able to get your medication refilled without delays. documented in this encounter [facility] 04-14-2023 Note HNO ID: [id number] Author: SUZAN DRIVER APRN.CNP Service: ? Author Type: Nurse Practitioner Type: Progress Notes Filed: 04/14/2023 10:49 Note Text: [facility] Infusion ANDRZEJ Note Primary Problem List: ACTIVE PROBLEM LIST Seizure-Like Activity (Hcc) Psychogenic Nonepileptic Seizure Intractable Chronic Migraine Without Aura and With Status Migrainosus Chronic Migraine Without Aura, With Intractable Migraine, So Stated, With Status Migrainosus Subjective: Coni Nicholson is a 27 year old year old female, with a history of asthma, anxiety, depression, PCOS, occipital neuralgia, psychogenic nonepileptic seizures, and migraine following up today for day 3 of infusions. 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 Current Preventative: recently prescribed aimovig Current Abortive: zomig NS, norflex, phenergan, toradol, baclofen ALLERGIES Allergen Reactions Dihydroergotamine Intolerance Chest tightness, numbness and tingling in bilateral extremities, increased anxiety Adhesive Tape-Silic* Rash Azithromycin Other: See Comments Keflex [Cephalexin] Rash Keppra [Levetiracet* Itching Pyrilamine-Dextrome* Hives Reglan [Metoclopram* Intolerance Vortioxetine Hives Current Medications: lumateperone (CAPLYTA) 10.5 mg capsuleTake 10.5 mg by mouth once daily.Disp: Rfl: baclofen 10 mg tabletTake 10 mg by mouth three times a day as needed.Disp: Rfl: Phentermine HCl 37.5 mg tablettake 1 tablet by mouth every morning before mealsDisp: Rfl: (Patient not taking: Reported on 04/12/2023) erenumab-aooe (AIMOVIG AUTOINJECTOR) 70 mg/mL auto-injectorInject 1 mL subcutaneously once every month. Do not shake.Disp: 1 EachRfl: 11 ZOLMitriptan (ZOMIG) 5 mg nasal sprayUse 1 [place] in the nose as needed at onset [...] Rfl: traZODone (DESYREL) 100 mg tabletDisp: Rfl: lamoTRIgine (LAMICTAL) 150 mg tabletDisp: Rfl: diazePAM (VALIUM) 10 mg tabletDisp: Rfl: Review of Systems: Review of system : unchanged from the previous visit (sleep patterns, mood, energy, appetite, stress, exercising). Sleep: Insomnia Mood: normal and irritable Stress: High Objective: VS: See RN note. General: well appearing, in no acute distress, alert Neurological: Pain Behaviors: squinting Musculoskeletal: No gross joint deformities. Mental Status: Alert and oriented to person, place and time. Affect is normal and appropriate. Speech is spontaneous and fluent without dysarthria, normal in rate, volume and articulation, and clear, coherent, and relevant. Short and snf memory, cognition and general fund of knowledge are good. Attention span and concentration are good. Cranial Nerves: VII-face is symmetric without evidence of weakness. VIII-hearing intact. Assessment: 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 with status migrainosus (primary encounter diagnosis) Pt reports zofran not very effective, but she does respond well to compazine. Compazine added to replace zofran for 2nd line antiemetic. Plan: Coni Nicholson is a 27 year old year old female, following up today for day 3 of infusions. Response to infusions: pain and nausea are improving Follow up/ discharge plan: f/u in 3 months Start aimovig this weekend Level of service: Est level 4 (30-39 min). Time spent 30 min on the day of service, which included preparing to see the patient, [id number] patient care, completing clinical documentation, obtaining and/or reviewing separately obtained history, performing a medically appropriate examination, counseling and educating the patient/family/caregiver, and ordering medications, tests, or procedures. Suzan Driver APRN.[place] PLANNER Headache Section [facility] 04-14-2023 Note HNO ID: [id number] Author: INOCENCIO NAIR RN Service: ? Author Type: Registered Nurse Type: Progress Notes Filed: 04/14/2023 11:51 Note Text: Pt in for 3rd day of infusion. Pt rated headache 6/10. Pt has severe nausea and moderate dizziness. Educated pt on medications to be administered. Pt agreed to proceed as ordered. Patient has delivery driver assistant today. @0915: Patient tearful and c/o PIV site burning and very painful. No infiltration or redness of site noted, Ice-pack placed over PIV site. After a few minutes pt reported the ice-pack did not help and wanted PIV to be removed. PIV site removed. Patient remained very anxious and tearful, and requesting if anything else can be given for anxiety. [facility] GULLET SLITTER notified. New PIV site started, 2nd dose of Benadryl given for anxiety. 2nd line: Compazine given for severe nausea. Per [facility] GULLET SLITTER to hold Periactin today as the two doses of Benadryl and Compazine can cause drowsiness. Pts infusion complete, tolerated infusion. Headache 4/10. Pt stated no nausea and moderate dizziness. PIV site removed. Pt discharged from txt room at 1124 via wheelchair to ride in [facility]. [facility] 04-14-2023 History of Presen t illness Narrative Images from the original note were not included. [facility] Infusion ANDRZEJ Note Primary Problem List: ACTIVE PROBLEM LIST Seizure-Like Activity (Hcc) Psychogenic Nonepileptic Seizure Intractable Chronic Migraine Without Aura and With Status Migrainosus Chronic Migraine Without Aura, With Intractable Migraine, So Stated, With Status Migrainosus Subjective: Coni Nicholson is a 27 year old year old female, with a history of asthma, anxiety, depression, PCOS, occipital neuralgia, psychogenic nonepileptic seizures, and migraine following up today for day 3 of infusions. Therapy Plan: NON-DHE Current Pain level: 610 Nausea: SEVERE Baseline Pain Level: 4/10 Hysterectomy for contraceptive Has a delivery driver assistant Current Preventative: recently prescribed aimovig Current Abortive: zomig NS, norflex, phenergan, toradol, baclofen ALLERGIES Allergen Reactions Dihydroergotamine Intolerance Chest tightness, numbness and tingling in bilateral extremities, increased anxiety Adhesive Tape-Silic* Rash Azithromycin Other: See Comments Keflex [Cephalexin] Rash Keppra [Levetiracet* Itching Pyrilamine-Dextrome* Hives Reglan [Metoclopram* Intolerance Vortioxetine Hives Current Medications: lumateperone (CAPLYTA) 10.5 mg capsule^Take 10.5 mg by mouth once daily.^Disp: ^Rfl: baclofen 10 mg tablet^Take 10 mg by mouth three times a day as needed.^Disp: ^Rfl: Phentermine HCl 37.5 mg tablet^take 1 tablet by mouth every morning before meals^Disp: ^Rfl: (Patient not taking: Reported on 04/12/2023) erenumab-aooe (AIMOVIG AUTOINJECTOR) 70 mg/mL auto-injector^Inject 1 mL subcutaneously once every month. Do not shake.^Disp: 1 Each^Rfl: 11 ZOLMitriptan (ZOMIG) 5 mg nasal spray^Use 1 [place] in the nose as needed at onset of migraine headache. If symptoms persist or return, may repeat dose in other nostril after 2 hours. Maximum of 2 sprays per 24 hours^Disp: 10 Each^Rfl: 2 orphenadrine ER (NORFLEX) 100 mg tablet^Take 1 tablet by mouth two times a day as needed.^Disp: 30 tablet^Rfl: 5 promethazine (PHENERGAN) 12.5 mg tablet^Take 1 tablet by mouth every 6 hours as needed.^Disp: 90 tablet^Rfl: 5 keTORolac (TORADOL) 10 mg tablet^Take 1 tablet by mouth every 6 hours as needed (severe migraine).^Disp: 20 tablet^Rfl: 2 lithium carbonate 300 mg tablet^^Disp: ^Rfl: magnesium oxide 400 mg magnesium cap^magnesium 400 mg (as magnesium oxide) capsule^Disp: ^Rfl: traZODone (DESYREL) 100 mg tablet^^Disp: ^Rfl: lamoTRIgine (LAMICTAL) 150 mg tablet^^Disp: ^Rfl: diazePAM (VALIUM) 10 mg tablet^^Disp: ^Rfl: Review of Systems: Review of system : unchanged from the previous visit (sleep patterns, mood, energy, appetite, stress, exercising). Sleep: Insomnia Mood: normal and irritable Stress: High Objective: VS: See RN note. General: well appearing, in no acute distress, alert Neurological: Pain Behaviors: squinting Musculoskeletal: No gross joint deformities. Mental Status: Alert and oriented to person, place and time. Affect is normal and appropriate. Speech is spontaneous and fluent without dysarthria, normal in rate, volume and articulation, and clear, coherent, and relevant. Short and snf memory, cognition and general fund of knowledge are good. Attention span and concentration are good. Cranial Nerves: VII-face is symmetric without evidence of weakness. VIII-hearing intact. Assessment: 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 with status migrainosus (primary encounter diagnosis) Pt reports zofran not very effective, but she does respond well to compazine. Compazine added to replace zofran for 2nd line antiemetic. Plan: Coni Nicholson is a 27 year old year old female, following up today for day 3 of infusions. Response to infusions: pain and nausea are improving Follow up/ discharge plan: f/u in 3 months Start aimovig this weekend Level of service: Est level 4 (30-39 min). Time spent 30 min on the day of service, which included preparing to see the patient, [id number] patient care, completing clinical documentation, obtaining and/or reviewing separately obtained history, performing a medically appropriate examination, counseling and educating the patient/family/caregiver, and ordering medications, tests, or procedures. Suzan Driver APRN.FADY Headache Section [facility] documented in this encounter [facility] 04-14-2023 History of Presen t illness Narrative Pt in for 3rd day of infusion. Pt rated headache 6/10. Pt has severe nausea and moderate dizziness. Educated pt on medications to be administered. Pt agreed to proceed as ordered. Patient has delivery driver assistant today. @0915: Patient tearful and c/o PIV site burning and very painful. No infiltration or redness of site noted, Ice-pack placed over PIV site. After a few minutes pt reported the ice-pack did not help and wanted PIV to be removed. PIV site removed. Patient remained very anxious and tearful, and requesting if anything else can be given for anxiety. [facility] [employer]TER notified. New PIV site started, 2nd dose of Benadryl given for anxiety. 2nd line: Compazine given for severe nausea. [facility] to hold Periactin today as the two doses of Benadryl and Compazine can cause drowsiness. Pts infusion complete, tolerated infusion. Headache 4/10. Pt stated no nausea and moderate dizziness. PIV site removed. Pt discharged from txt room at 1124 via wheelchair to ride in lobby. documented in this encounter [facility] 04-13-2023 Note HNO ID: [id number] Author: JOHANA CANCINO RN Service: ? Author Type: Registered Nurse Type: Progress Notes Filed: 04/13/2023 11:15 Note Text: Pt in for second day of infusion. Pt rated headache 7/10. Pt has severe nausea and mild dizziness. Educated pt on medications to be administered. Pt agreed to proceed as ordered. Patient requested Benadryl at the beginning of TX and she would like to get Periactin toward the end. She is holding Baclofen and Norflex. She held Diazepam last night and this am. Usually she takes Diazepam twice daily. Educated patient to hold NSAIDS , she is receiving Toradol in TX room. Patient stated she slept most of the day after first infusion. She is requesting the same schedule of medications as on day 1. Stated it worked for her. PINEDA still 7/10 but she is able to sleep and this regimen takes the edge of anxiety. She is working with a psychiatrist in [place] . Voiced stress is her biggest trigger for headaches. 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 I mentioned to patient our reboot program . Patient very interested to learn about it. Message send to our professional sports scout and Rhina Lim to set up patient for evaluation. 1020 Patient sleeping on and off. Nausea subsiding. Patient declined Zofran. Stated Zofran ineffective. 1050 Infusion complete. Patient slept on and off. Nausea resolved. PINEDA 6/10. Patient verbal , appears sedated . D/c [facility] wheel [facility] her [facility] [employer] 04-13-2023 History of Presen t illness Narrative Pt in for second day of infusion. Pt rated headache 7/10. Pt has severe nausea and mild dizziness. Educated pt on medications to be administered. Pt agreed to proceed as ordered. Patient requested Benadryl at the beginning of TX and she would like to get Periactin toward the end. She is holding Baclofen and Norflex. She held Diazepam last night and this am. Usually she takes Diazepam twice daily. Educated patient to hold NSAIDS , she is receiving Toradol in TX room. Patient stated she slept most of the day after first infusion. She is requesting the same schedule of medications as on day 1. Stated it worked for her. PINEDA still 7/10 but she is able to sleep and this regimen takes the edge of anxiety. She is working with a psychiatrist in [place] . Voiced stress is her biggest trigger for headaches. 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 I mentioned to patient our reboot program . Patient very interested to learn about it. Message send to our professional sports scout and Rhina Lim to set up patient for evaluation. 1020 Patient sleeping on and off. Nausea subsiding. Patient declined Zofran. Stated Zofran ineffective. 1050 Infusion complete. Patient slept on and off. Nausea resolved. PINEDA 6/10. Patient verbal , appears sedated . D/c via wheel chair to her in [facility]. documented in this encounter [facility] 04-13-2023 Miscellaneous Notes Patient is currently receiving infusions for headache. She is interested in learning about reboot program. Please schedule for evaluation. Johana Cancino RN documented in this encounter [facility] 04-12-2023 Note HNO ID: [id number] Author: SUZAN DRIVER APRN.[place] PLANNER Service: ? Author Type: Nurse Practitioner Type: Progress Notes Filed: 04/12/2023 11:52 Note Text: Headache Center Infusion ANDRZEJ Note Primary Problem List: ACTIVE PROBLEM LIST Seizure-Like Activity (Hcc) Psychogenic Nonepileptic Seizure Intractable Chronic Migraine Without Aura and With Status Migrainosus Chronic Migraine Without Aura, With Intractable Migraine, So Stated, With Status Migrainosus Subjective: Coni Nicholson is a 27 year old year old female, with a history of asthma, anxiety, depression, PCOS, occipital neuralgia, psychogenic nonepileptic seizures, and migraine following up today for day 1 of infusions. Therapy Plan: NON-DHE New health conditions since orders were placed: NO Cardiovascular risk factors (CT/STROKE/CAD/HTN): no Last triptan dose: none in 2 weeks Last muscle relaxer dose: none in past 2 week Last NSAID dose: none in last 2 weeks Current Pain level: 8/10 Nausea: severe Baseline Pain Level: 4/10 Has a delivery driver assistant Current Preventative: Botox PREEMPT Protocol (last round was 10/12/22), recently prescribed aimovig Current Abortive: zomig NS, norflex, phenergan, toradol ALLERGIES Allergen Reactions Dihydroergotamine Intolerance Chest tightness, numbness and tingling in bilateral extremities, increased anxiety Adhesive Tape-Silic* Rash Azithromycin Other: See Comments Depakote [Divalproe* Hives Keflex [Cephalexin] Rash Keppra [Levetiracet* Itching Pyrilamine-Dextrome* Hives Reglan [Metoclopram* Intolerance Vortioxetine Hives Current Medications: Phentermine HCl 37.5 mg tablettake 1 tablet by mouth every morning before mealsDisp: Rfl: erenumab-aooe (AIMOVIG AUTOINJECTOR) 70 mg/mL auto-injectorInject 1 mL subcutaneously once every month. Do not shake.Disp: 1 EachRfl: 11 ZOLMitriptan (ZOMIG) 5 mg nasal sprayUse 1 [place] in the nose as needed at onset [...] (VIIBRYD) 20 mg tabletDisp: Rfl: lamoTRIgine (LAMICTAL) 150 mg tabletDisp: Rfl: diazePAM (VALIUM) 10 mg tabletDisp: Rfl: Review of Systems: Review of system : unchanged from the previous visit (sleep patterns, mood, energy, appetite, stress, exercising). Sleep: Insomnia Mood: normal and irritable Stress: High Objective: VS: See RN note. General: well appearing, in no acute distress, alert Neurological: Pain Behaviors: squinting Musculoskeletal: No gross joint deformities. Mental Status: Alert and oriented to person, place and time. Affect is normal and appropriate. Speech is spontaneous and fluent without dysarthria, normal in rate, volume and articulation, and clear, coherent, and relevant. Short and superintendent container terminal memory, cognition and general fund of knowledge are good. Attention span and concentration are good. Cranial Nerves: VII-face is symmetric without evidence of weakness. VIII-hearing intact. Assessment: 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 with status migrainosus (primary encounter diagnosis) Pt requesting depakote, but it's listed as an allergy. RN removed it b/c pt denies it's an allergy. Pt takes lamictal and cannot receive depakote d/t interaction. Plan: Coni Nicholson is a 27 year old year old female, following up today for day 1 of infusions. proceed with non-dhe infusions Level of service: Est level 3 (20-29 min). Time spent 25 min on the day of service, which included preparing to see the patient, [id number] patient care, completing clinical documentation, obtaining and/or reviewing separately obtained history, performing a medically appropriate examination, counseling and educating the patient/family/caregiver, and ordering medications, tests, or procedures. Suzan Driver APRN.[place] PL[employer]NER Headache Section [facility] 04-12-2023 Note HNO ID: [id number] Author: SUZAN JEFF RN Service: ? Author Type: Registered Nurse Type: Progress Notes Filed: 04/12/2023 13:59 Note Text: 1105 Patient in for first day of IV infusions. Patient rated headache 8/10. Patient stated severe nausea and mild dizziness. Patient educated on medications to be administered. Patient verbalized understanding and agreed to proceed with infusions. Patient requested the PRN IV Benadryl vs oral periactin for sedation. Rhina Driver GULLET SLITTER updated and agreeable. PIV started on 3rd attempt. Pt tolerated well. Warm blanket given for comfort. 1224 Patient requesting something else for her pain/nausea. Refused zofran and requested periactin to see how it works . PO periactin given to patient. Assisted patient to and from bathroom without incident. Patient back in position of comfort. 1345 Patient sleeping. Patient awakened as infusions are complete. Pt tolerated infusion well. Pt rated headache 6/10. Pt stated no nausea and mild dizziness. Pt discharged from treatment room with delivery driver assistant via wheelchair due to effects from oral medications. [facility] 04-12-2023 History of Presen t illness Narrative Images from the original note were not included. Headache [facility] Infusion ANDRZEJ Note Primary Problem List: ACTIVE PROBLEM LIST Seizure-Like Activity (Hcc) Psychogenic Nonepileptic Seizure Intractable Chronic Migraine Without Aura and With Status Migrainosus Chronic Migraine Without Aura, With Intractable Migraine, So Stated, With Status Migrainosus Subjective: Coni Nicholson is a 27 year old year old female, with a history of asthma, anxiety, depression, PCOS, occipital neuralgia, psychogenic nonepileptic seizures, and migraine following up today for day 1 of infusions. Therapy Plan: NON-DHE New health conditions since orders were placed: NO Cardiovascular risk factors (CT/STROKE/CAD/HTN): no Last triptan dose: none in 2 weeks Last muscle relaxer dose: none in past 2 week Last NSAID dose: none in last 2 weeks Current Pain level: 8 Nausea: severe Baseline Pain Level: 4/10 Has a delivery driver assistant Current Preventative: Botox PREEMPT Protocol (last round was 10/12/22), recently prescribed aimovig Current Abortive: zomig NS, norflex, phenergan, toradol ALLERGIES Allergen Reactions Dihydroergotamine Intolerance Chest tightness, numbness and tingling in bilateral extremities, increased anxiety Adhesive Tape-Silic* Rash Azithromycin Other: See Comments Depakote [Divalproe* Hives Keflex [Cephalexin] Rash Keppra [Levetiracet* Itching Pyrilamine-Dextrome* Hives Reglan [Metoclopram* Intolerance Vortioxetine Hives Current Medications: Phentermine HCl 37.5 mg tablet^take 1 tablet by mouth every morning before meals^Disp: ^Rfl: erenumab-aooe (AIMOVIG AUTOINJECTOR) 70 mg/mL auto-injector^Inject 1 mL subcutaneously once every month. Do not shake.^Disp: 1 Each^Rfl: 11 ZOLMitriptan (ZOMIG) 5 mg nasal spray^Use 1 [place] in the nose as needed at onset of migraine headache. If symptoms persist or return, may repeat dose in other nostril after 2 hours. Maximum of 2 sprays per 24 hours^Disp: 10 Each^Rfl: 2 orphenadrine ER (NORFLEX) 100 mg tablet^Take 1 tablet by mouth two times a day as needed.^Disp: 30 tablet^Rfl: 5 promethazine (PHENERGAN) 12.5 mg tablet^Take 1 tablet by mouth every 6 hours as needed.^Disp: 90 tablet^Rfl: 5 keTORolac (TORADOL) 10 mg tablet^Take 1 tablet by mouth every 6 hours as needed (severe migraine).^Disp: 20 tablet^Rfl: 2 lithium carbonate 300 mg tablet^^Disp: ^Rfl: magnesium oxide 400 mg magnesium cap^magnesium 400 mg (as magnesium oxide) capsule^Disp: ^Rfl: traZODone (DESYREL) 100 mg tablet^^Disp: ^Rfl: vilazodone (VIIBRYD) 20 mg tablet^^Disp: ^Rfl: lamoTRIgine (LAMICTAL) 150 mg tablet^^Disp: ^Rfl: diazePAM (VALIUM) 10 mg tablet^^Disp: ^Rfl: Review of Systems: Review of system : unchanged from the previous visit (sleep patterns, mood, energy, appetite, stress, exercising). Sleep: Insomnia Mood: normal and irritable Stress: High Objective: VS: See RN note. General: well appearing, in no acute distress, alert Neurological: Pain Behaviors: squinting Musculoskeletal: No gross joint deformities. Mental Status: Alert and oriented to person, place and time. Affect is normal and appropriate. Speech is spontaneous and fluent without dysarthria, normal in rate, volume and articulation, and clear, coherent, and relevant. Short and superintendent container terminal memory, cognition and general fund of knowledge are good. Attention span and concentration are good. Cranial Nerves: VII-face is symmetric without evidence of weakness. VIII-hearing intact. Assessment: 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 with status migrainosus (primary encounter diagnosis) Pt requesting depakote, but it's listed as an allergy. RN removed it b/c pt denies it's an allergy. Pt takes lamictal and cannot receive depakote d/t interaction. Plan: Coni Nicholson is a 27 year old year old female, following up today for day 1 of infusions. proceed with non-dhe infusions Level of service: Est level 3 (20-29 min). Time spent 25 min on the day of service, which included preparing to see the patient, [id number] patient care, completing clinical documentation, obtaining and/or reviewing separately obtained history, performing a medically appropriate examination, counseling and educating the patient/family/caregiver, and ordering medications, tests, or procedures. Suzan Driver APRN.FADY Headache [facility] documented in this encounter [facility] 04-12-2023 History of Presen t illness Narrative 1105 Patient in for first day of IV infusions. Patient rated headache 8/10. Patient stated severe nausea and mild dizziness. Patient educated on medications to be administered. Patient verbalized understanding and agreed to proceed with infusions. Patient requested the PRN IV Benadryl vs oral periactin for sedation. Rhina Driver GULLET SLITTER updated and agreeable. PIV started on 3rd attempt. Pt tolerated well. Warm blanket given for comfort. 1224 Patient requesting something else for her pain/nausea. Refused zofran and requested periactin to see how it works . PO periactin given to patient. Assisted patient to and from bathroom without incident. Patient back in position of comfort. 1345 Patient sleeping. Patient awakened as infusions are complete. Pt tolerated infusion well. Pt rated headache 6/10. Pt stated no nausea and mild dizziness. Pt discharged from treatment room with delivery driver assistant via wheelchair due to effects from oral medications. documented in this encounter [facility] 04-12-2023 Instructions Suzan Driver APRN.LAND PLANNER - 04/12/2023 11:52 AM EST General Headache Education and Headache Prevention Strategies: 1. Maintain a headache diary; learn to identify and avoid triggers. Common triggers include: Emotional triggers: Emotional/Upset family or friends Emotional/Upset occupation Business reversal/success Anticipation anxiety Crisis-serious Post-crisis periodNew job/position Physical triggers: Vacation Day Weekend Strenuous Exercise High Altitude Location New Move Day Physical Illness Oversleep/Not enough sleep Weather changes Light: Photophobia or light sesnitivity treatment involves a balance between desensitization and reduction in overly strong input. Use dark polarized glasses outside, but not inside. Avoid bright or fluorescent light, but do not dim environment to the point that going into a normally lit room hurts. Consider FL-41 tint lenses, which reduce the most irritating wavelengths without blocking too much light. These can be obtained at [employer] or [employer]: see list below. 2. Limit use of acute treatments (mlkd-eat-cijnnnw medications, triptans, etc.) to no more than 2 days per week or 10 days per month to prevent medication overuse headache (rebound headache). 3. Follow a regular schedule (including weekends and holidays): Don't skip meals. Eat a balanced diet. 8 hours of sleep nightly. Minimize stress. Exercise 30 minutes per day. Walking is great exercise. Being overweight is associated with a 5 times increased risk of chronic migraine. Keep well hydrated and drink 6-8 glasses of water per day. Limit caffeine to 200 mg per day. 4. Initiate non-pharmacologic measures at the earliest onset of your headache. Rest and quiet environment. Relax and reduce stress. Dtaeovu8Sjmqt is a free andrzej that can instruct you on some simple relaxtion and breathing techniques. Http://YouGov is a free website that provides teaching videos on relaxation. Also, there are many apps that can be downloaded for mindful relaxation. An andrzej called YOGA NIDRA will help walk you through mindfulness. Cold compresses. 5. Don't wait!! Take the maximum allowable dosage of prescribed medication at the first sign of migraine. 6. Compliance: Take prescribed medication regularly as directed and at the first sign of a migraine. 7. Communicate: Call your physician when problems arise, especially if your headaches change, increase in frequency/severity, or become associated with neurological symptoms (weakness, numbness, slurred speech, etc.). 8. Headache/pain management therapies: Consider various complementary methods, including meditation, behavioral therapy, psychological counselling, biofeedback, massage therapy, acupuncture, dry needling, and other modalities. Such measures may reduce the need for medications. Counseling for pain management, where patients learn to function and ignore/minimize their pain, seems to work very well. 9. Recommend changing family's attention and focus away from patient's headaches. Instead, emphasize daily activities. If first question of day is 'How are your headaches/Do you have a headache today?', then patient will constantly think about headaches, thus making them worse. Goal is to re-direct attention away from headaches, toward daily activities and other distractions. 10. Helpful Websites: www.AmericanHeadacheSociety.org www.migrainetrust.org www.headaches.org www.migraine.org.uk www.achenet.org 11. HEADACHE EXPECTATIONS: There are many types of headaches, and only a rare few in which complete relief can be expected. In general, there is no cure for headache, especially migraine based headaches. There is nothing available that completely prevents headaches from occurring, breaking through, or having periodic flare-ups and fluctuations. Regardless of what you are using on a daily basis for prevention, episodic headaches should still be expected, and periods where frequency may escalate and fluctuate are unavoidable. There is no quick fix for most headaches. Furthermore, the longer you have had high frequency headaches (such as chronic daily headache), the longer it will likely take to expect any improvement. In fact, some people will never improve, regardless of how many medications or other treatments we try. Our treatment strategy is to evaluate for possible causes of your headache, although testing is usually always normal, even in cases of daily continuous headaches for years. Most types of headache such as migraine are electrical brain disorders (similar to how epilepsy is an electrical brain disorders). Therefore, there is no testing that will reveal this dysfunctional electrical circuitry such on MRI, or other testing. We try to find a medication that may help lessen the frequency and/or severity of your headaches. The goal is not to completely stop them from happening, although if that happens, great! Different people respond to different medications, and some people just don't respond to anything, so it's usually a matter of trying different options. We can not predict if or when exactly you will respond to a treatment that we provide. Preventive headache medications take 4-6 weeks to start working, and 2-3 months to see full effect, assuming you reach an effective dose. Therefore, calling or messaging frequently because you have a headache flare prior to the 3 month genaro is unlikely to change anything, and unfortunately there is nothing available that will expedite this, so please try to avoid this. Our recommendation will generally be to give it adequate time first. If you are unable to wait it out for medications to work, we can also try IV infusions for some temporary relief. In general, the best that preventive medications or other treatments (including Botox) are able to offer in migraine management (variable in other headache types) is a 50% improvement in frequency and/or severity of headache. That is our goal, and any additional benefit is considered a bonus. Some people do significantly better than this, others do not get close to this. Therefore, if your headaches are not improving by at least 3 months on your preventive strategy, contact us and we can discuss further adjustments. Keep in mind that complete headache cure is not a realistic expectation. Our Team: The nursing staff, and medical assistants are a major part of YOUR TREATMENT TEAM and will be handling your phone calls and inquiries, if any. Unless explicitly told otherwise at the time of your office visit, your study results and ensuing treatment plans will be released via Epom and discussed during your follow-up appointment. Follow-up appointments are primarily provided by the Nurse Practitioners and Physician s Assistants in order to provide timely, accessible care. Epom: Please ask the schedulers to give you an activation code. The main way of communication is by [employer]hart rather than phone lines, so if you have not signed up, please do so. Epom is also the way that you can review your labs and testing. We are not able to contact everyone to tell them results are normal. If you do not hear back from us regarding testing you have had, it should be considered normal or within normal range. If you have any questions about the results, you are free to message us. Epom is meant for simple questions regarding medications, possible side effects, or other simple straight forward questions in limited sentences, rather than multiple paragraphs of discussion. Epom is not meant for, or efficient for these complex questions, extensive questions, extensive medication adjustments, complex new symptoms or concerns. These issues beyond simple questions require a follow up visit with myself, one of our physician assistants, nurse practitioners, or a Virtual Visit via computer or smart phone, as detailed further down. Please contact [employer] Support if you are having issues with Epom or logging in to your virtual visit appointment. You can reach them at [phone] Refills: Please pay attention to when your refills will need to be renewed. Due to the volume of phone calls daily, this could potentially take a few days, although we certainly try to honor your refill requests as soon as we can. You should call at least 1 week in advance of needing a refill to ensure you do not run out of medication. Keep in mind that refill requests on Fridays may not be filled until the following week. The Headache and Facial Pain Section does not complete disability or any other insurance-related forms/documention. We will complete FMLA forms. All of the office notes, study results, and other pertinent documentation generated as part of your evaluation will be available to you and to your Primary Care Physician (PCP). Use of this material to complete such forms will be at the discretion of your PCP/referring physician. HEADACHE DIET: Foods and beverages which may trigger migraine Note that only 20% of headache patients are food sensitive. You will know if you are food sensitive if you get a headache consistently 20 minutes to 2 hours after eating a certain food. Only cut out a food if it causes headaches, otherwise you might remove foods you enjoy! What matters most for diet is to eat a well balanced healthy diet full of vegetables and low fat protein, and to not miss meals. Chocolate, other sweets ALL cheeses except cottage and cream cheese Dairy products, yogurt, sour cream, ice cream Liver Meat extracts (Bovril, Marmite, meat tenderizers) Meats or fish which have undergone aging, fermenting, pickling or smoking. These include: Hotdogs,salami,Lox,sausage, mortadellas,smoked salmon, pepperoni, Pickled reynoso Pods of broad carmona (Singaporean beans, Malay pea pods, Stateless (jc) beans, frazier and navy beans Ripe avocado, ripe banana Yeast extracts or active yeast preparations such as Owen's or Maria Elena's (commercial bakes goods are permitted) Tomato based foods, pizza (lasagna, etc.) MSG (monosodium glutamate) is disguised as many things; look for these common aliases: Monopotassium glutamate Autolysed yeast Hydrolysed protein Sodium caseinate flavorings all natural preservatives Nutrasweet Avoid all other foods that convincingly provoke headaches. documented in this encounter [facility] 04-03-2023 Miscellaneous Notes Ambulatory Pharmacy Prior Authorization Note Provider Intervention Required?: No- Pharmacy completed on your behalf. Rx Plan: Medicaid [facility] ([facility]) Drug: Aimovig 70MG/ML auto-injectors Cover My Meds Chong: [id number] Determination: Approved Prior Authorization/Case #: n/a Prior Authorization Expiration: 09/22/23 Time to PA Submission in CMM: 15 [...] refills. Prescriptions will now be processed through [facility] for determination of next steps. For questions relating to this submission, please contact [facility] at [phone] [facility] received prescription(s) for Aimovig 70MG/ML auto-injectors . Benefits investigation was conducted, indicating that a prior authorization is required. PA was initiated and pending review through [employer]. All pertinent clinical information was submitted to insurance. CM Chong: [id number] Ordering Provider: Logan Barth APRN.Angely Schaefer RN [facility] P: , F: documented in this encounter [facility] 03-23-2023 Note HNO ID: [id number] Author: LOGAN BARTH APRN.FADY Service: ? Author Type: Nurse Practitioner [...] visit. Either the patient or their legal public utilities sales representative has been informed of the [...] XL, Qudexy) Anti-Depressant and Antipsychotic Amitriptyline (Elavil) [place] (Eskalith, Lithobid) Nortriptyline (Pamelor, Aventyl) Anti-Migraine Dihydroergotamine [...] ZOLMitriptan (ZOMIG) 5 mg nasal sprayUse 1 [place] in the nose as needed at onset [...] Rfl: lamoTRIgine (LAMICTAL) (more content not included)... [facility] 03-22-2023 Note HNO ID: [id number] Author: SUZAN DRIVER APRN.LAND PLANNER Service: ? Author Type: Nurse Practitioner Type: Progress Notes Filed: 03/22/2023 16:40 Note Text: Headache Center - Virtual Visit Infusion Triage This visit was conducted as a virtual visit, with patient's permission, via Zoom. It required patient-provider interaction for the medical decision making as documented below. Patient stated name and Patient location [place] I have communicated my name and active licensure. The patient's identity and physical location were verified at the time of this visit. Either the patient or their legal public utilities sales representative has been informed of the [...] Preventative: Botox PREEMPT Protocol (last round was 8/23/23) Current Abortive: zomig NS, norflex, phenergan, toradol [...] XL, Qudexy) Anti-Depressant and Antipsychotic Amitriptyline (Elavil) [place] (Eskalith, Lithobid) Nortriptyline (Pamelor, Aventyl) Anti-Migraine Dihydroergotamine [...] ZOLMitriptan (ZOMIG) 5 mg nasal sprayUse 1 [place] in the nose as needed at onset [...] keTORolac (TORADOL) 1 (more content not included)... [facility] 12-13-2022 Miscellaneous Notes Images from the original note were not included. Called patient to schedule for 3 days of Non DHE IV infusions. She started she was currently driving and would call back to schedule Logan Barth APRN.LAND PLANNER P Headache Infusion Scheduling Pool; P C21 Botox Pool Pls schedule for infusions, and also her next botox treatment - thank you. KG documented in this encounter [facility] 12-13-2022 Miscellaneous Notes PA submitted through [employer]MyMeds for Orphenadrine Citrate ER 100mg. Chong Code: [id number] documented in this encounter [facility] 12-12-2022 Note HNO ID: [id number] Author: Logan Barth APRN.FADY Service: ? Author [...] visit. Either the patient or their legal public utilities sales representative has been informed of the [...] their headaches have not changed. She sent message on 12/07: Hey I?m out of [...] XL, Qudexy) Anti-Depressant and Antipsychotic Amitriptyline (Elavil) [place] (Eskalith, Lithobid) Nortriptyline (Pamelor, Aventyl) Anti-Migraine Dihydroergotamine [...] ZOLMitriptan (ZOMIG) 5 mg nasal sprayUse 1 [place] in the nose as needed at onset of migraine headache. If symptoms persist or return, may repeat dose in other nostril after 2 hours. Maximum of 2 sprays per 24 hoursDisp: 10 EachRfl: 2 lamoTRIgine (LAMICTAL) 150 mg tabletDisp: Rfl: diazePAM (VALIUM) 10 mg tabletDisp: Rfl: I have reviewed the Hea (more content not included)... [facility] 12-09-2022 Miscellaneous Notes Patient would also like [...] Name: Emory Reilly documented in this encounter [facility] 11-11-2022 Note HNO ID: [id number] Author: Suzan Driver APRN.LAND PLANNER Service: ? Author Type: Nurse Practitioner Type: [...] since symptoms have resolved. Suzan Driver APRN.FADY [facility] 11-11-2022 History of Presen t illness Narrative [...] d/c since symptoms have resolved. Suzan Driver APRN.LAND PLANNER 0824: Patient in for first day of IV infusions. Patient rated headache 8/10. Patient stated severe nausea and severe dizziness. Patient educated on medications to be administered. Patient verbalized understanding and agreed to proceed with infusions. 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 She would like PRN benadryl for sedation. [...] with it. Message sent to Suzan Driver GULLET SLITTER to update. Benadryl hypersensitivity released and administered. Pt also very nauseated. PRN zofran administered. 1050: Pt fell back asleep. Woke pt up and she she stated relief from all itching. Denies any other symptoms/side effects at this time. Pts infusions complete. Pt rated headache 7/10. Pt stated mild nausea and denied dizziness. 1055: Suzan Driver GULLET SLITTER in txt room to see patient. 1105: Pt discharged from treatment room via wheelchair due to drowsiness to her significant other. 1110: When cleaning chair after pt left, white pill found in chair. Tablet identified as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 like episodes. NEUROLOGIC: - [...] UMANG Garcia CNP Neuro Critical Care Pager [phone] 10/20/2021 6:49 AM ALTM is running. Pt [...] at 100%. documented in this encounter [employer] Phone: 10-01-2021 Note DISCHARGE SUMMARY DISCHARGE DATE: [...] pain free and no longer on narcotics. [facility] 10-01-2021 Note OPERATIVE NOTE OPERATION DATE: 10/01/2021 PROCEDURE: Total abdominal hysterectomy with partial bilateral salpingectomy with cystoscopy. PREOPERATIVE DIAGNOSIS: Menorrhagia, dysmenorrhea, dyspareunia, pelvic pain. POSTOPERATIVE DIAGNOSIS: Menorrhagia, dysmenorrhea, dyspareunia, pelvic pain. ANESTHESIA: General. SURGEON: Zay Blas D.O. CARD RUNNER: VERNA aYp URINE OUTPUT: Yellow and clear. BLOOD LOSS: [...] Recovery Room in stable condition. ?? [facility] 08-14-2021 Note PROCEDURE: US PELVIS TRANSVAG, [...] authenticated by: NICOLE MEDELLIN Date: 2021-08-14 10:19 [facility] 12-24-2020 Hospital DischVielka Luis DO - 12/24/2020 Continue all home medications as prescribed. Follow up with your family doctor and neurologist. Return to the emergency department for new, worsening or worrisome symptoms. documented in this encounter [employer] Phone: Evaluation note Diagnosis Migraine without status migrainosus, not intractable, unspecified migraine type- Primary documented in this encounter [employer] Phone: evaluation note* Diagnosis Seizure-like activity (HCC)- Primary Other convulsions Seizure disorder (HCC) Unspecified epilepsy without mention of intractable epilepsy Psychogenic nonepileptic seizure documented in this encounter [facility] [employer] Phone: evaluation note* Diagnosis Seizure-like activity (HCC)- Primary Other convulsions [facility] Diagnosis Psychogenic nonepileptic seizure- Primary Spells of trembling Abnormal involuntary movements Chronic intractable headache, unspecified headache type [facility] Diagnosis Seizure-like activity (HCC)- Primary Other convulsions Psychogenic nonepileptic seizure [facility] Diagnosis Seizure-like activity (HCC)- Primary Other convulsions [facility]* Diagnosis Chronic migraine w/o aura, not intractable, w/o stat migr- Primary [facility] Diagnosis 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 with status migrainosus- Primary Chronic migraine without aura, with intractable migraine, so stated, with status migrainosus [facility] Diagnosis 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 with status migrainosus- Primary Chronic migraine without aura, with intractable migraine, so stated, with status migrainosus [facility] Diagnosis Chronic migraine w/o aura, not intractable, w/o stat migr- Primary [facility]* Diagnosis 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 with status migrainosus- Primary Chronic migraine without aura, with intractable migraine, so stated, with status migrainosus [facility] Diagnosis 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 with status migrainosus- Primary Chronic migraine without aura, with intractable migraine, so stated, with status migrainosus [facility]* Diagnosis Chronic migraine w/o aura, not intractable, w/o stat migr Cervicalgia Migraine without aura and without status migrainosus, not intractable Migraine without aura, without mention of intractable migraine without mention of status migrainosus [facility] Diagnosis 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 with status migrainosus- Primary Chronic migraine without aura, with intractable migraine, so stated, with status migrainosus 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 with status migrainosus- Primary Chronic migraine without aura, with intractable migraine, so stated, with status migrainosus [facility] Diagnosis Chronic migraine without aura, with intractable migraine, so stated, with status migrainosus- Primary 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 with status migrainosus Chronic migraine without aura, with intractable migraine, so stated, with status migrainosus 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 with status migrainosus- Primary Chronic migraine without aura, with intractable migraine, so stated, with status migrainosus documented in this encounter [facility] note* Diagnosis Chronic migraine without aura, with intractable migraine, so stated, with status migrainosus- Primary 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 with status migrainosus Chronic migraine without aura, with intractable migraine, so stated, with status migrainosus 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 with status migrainosus- Primary Chronic migraine without aura, with intractable migraine, so stated, with status migrainosus documented in this encounter [facility] note* Diagnosis 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 with status migrainosus- Primary Chronic migraine without aura, with intractable migraine, so stated, with status migrainosus 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 without status migrainosus Chronic migraine without aura, with intractable migraine, so stated, without mention of status migrainosus documented in this encounter [facility] note* Diagnosis Chronic migraine without aura, with intractable migraine, so stated, with status migrainosus- Primary 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 with status migrainosus Chronic migraine without aura, with intractable migraine, so stated, with status migrainosus [facility] Outpatient Procedure (Routine) - Pending Review Specialty Diagnoses / Procedures Referred By Sushma veloz Referred To Contact [facility]OLOG[facility] [place] Diagnoses Seizure-like activity (HCC) Procedures EPIL EEG LEAD PLACEMENT EEG EXTENDED MONITORING 61-119 MINUTES ELECTROENCEPHALOGRAM REC COMA/SLEEP ONLY Geri Madera APRN.CNP [address] [place] [address] [facility] [address] [place] [address] Referral ID Status Reason Start Date Expiration Date Visits Requested Visits Authorized [id number] Pending Review Auto-Generat ed Referral 10/26/2021 10/26/2022 [address] [facility] for referral (narrative)* Outpatient Procedure (Routine) - Pending Review Specialty Diagnoses / Procedures Referred By Contac t Referred To Contact [facility]UROLOGICAL [place] Diagnoses Psychogenic nonepileptic seizure Spells of trembling Procedures EPIL AMBULATORY EEG EEG COMPLETE STD PHYS/QHP&GT;84 HR W/O Tyrone Diaz MD, PhD [address] [address] [place] [address] Referral ID Status Reason Start Date Expiration Date Visits Requested Visits Authorized [id number] Pending Review Auto-Generat ed Referral 10/29/2021 10/29/2022 1 1 * Outpatient Procedure (Routine) - Pending Review Specialty Diagnoses / Procedures Referred By Contac t Referred To [facility] Diagnoses Psychogenic nonepileptic seizure Spells of trembling Procedures EPIL AMBULATORY EEG EEG COMPLETE STD PHYS/QHP&GT;84 HR W/O Tyrone Diaz MD, PhD [address] [place] [address] [place] [address] Referral ID Status Reason Start Date Expiration Date Visits Requested Visits Authorized [id number] Pending Review Auto-Generat ed Referral 10/29/2021 10/29/2022 1 1 * Consult, Test, Treat (Routine) - Authorized Specialty Diagnoses / Procedures Referred By Contac t Referred To Contact Diagnoses Chronic intractable headache, unspecified headache type Procedures CONSULT TO HEADACHE CLINIC OFFICE/OUTPATIENT NEW HIGH MDM 60-74 MINUTES Tyrone Dolan MD, PhD [address] [address] Referral ID Status Reason Start Date Expiration Date Visits Requested Visits Authorized [id number] Authorized PCP Requested Referral 10/29/2021 10/29/2022 1 1 [facility] Procedure (Routine) - Pending Review Specialty Diagnoses / Procedures Referred By Sushma veloz Referred [facility] Diagnoses Seizure-like activity (HCC) Procedures EPIL EEG ROUTINE ELECTROENCEPHALOGRAM REC COMA/SLEEP ONLY Nelly Saldaña PA-C [address] [address] [facility] [place] [address] [place] [id number] Referral ID Status Reason Start Date Expiration Date Visits Requested Visits Authorized [id number] Pending Review Auto-Generat ed Referral 11/08/2021 11/08/2022 1 1 [facility] Advance Directives No Advanced Directives Records FoundDocuments on File Type Date Recorded Patient Freight Car Inspector Expl anation ACP-Advance Directive ACP-Power of Life Skills Teacher Latest Code Status on File Code Status [...] Referred By Sushma veloz Referred To Contact SamplesJesse MD [address] [place] [address] Referral ID Status Reason Start Date Expiration Date Visits Re quested Visits Authorized [id number] Closed 1 1 Specialty Diagnoses / Procedures Referred By Sushma veloz Referred To Contact Diagnoses 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 with status migrainosus 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 without status migrainosus Procedures PROVIDER ORDERED FOLLOW UP OFFICE/OUTPATIENT [facility] 60 MINUTES Suzan Driver APRN.CNP [address] [place] [address] Referral ID Status Reason Start Date Expiration Date Visits Requested Visits Authorized [id number] Authorized PCP Requested Referral 07/13/2023 04/13/2024 1 1 Additional Source Comments Source Comments (unrecognize d section and content) In the event this informatio n is protected by the Federal Confidentiality of Alcohol and Drug Abuse Patient Records regulations: The Federal rules restrict any use of the information to criminally investigate or prosecute any alcohol or drug abuse patient.[facility] the event this information is protected by the Federal Confidentiality of Alcohol and Drug Abuse Patient Records regulations: The Federal rules restrict any use of the information to criminally investigate or prosecute any alcohol or drug abuse patient.[facility] HospitalIn the event this information is protected by the Federal Confidentiality of Alcohol and Drug Abuse Patient Records regulations: The Federal rules restrict any use of the information to criminally investigate or prosecute any alcohol or drug abuse patient.[facility] HospitalIn the event this information is protected by the Federal Confidentiality of Alcohol and Drug Abuse Patient Records regulations: The Federal rules restrict any use of the information to criminally investigate or prosecute any alcohol or drug abuse patient.[facility] HospitalIn the event this information is protected by the Federal Confidentiality of Alcohol and Drug Abuse Patient Records regulations: The Federal rules restrict any use of the information to criminally investigate or prosecute any alcohol or drug abuse patient.[facility] HospitalIn the event this information is protected by the Federal Confidentiality of Alcohol and Drug Abuse Patient Records regulations: The Federal rules restrict any use of the information to criminally investigate or prosecute any alcohol or drug abuse patient.[facility] HospitalIn the event this information is protected by the Federal Confidentiality of Alcohol and Drug Abuse Patient Records regulations: The Federal rules restrict any use of the information to criminally investigate or prosecute any alcohol or drug abuse patient.[facility] HospitalIn the event this information is protected by the Federal Confidentiality of Alcohol and Drug Abuse Patient Records regulations: The Federal rules restrict any use of the information to criminally investigate or prosecute any alcohol or drug abuse patient.[facility] HospitalIn the event this information is protected by the Federal Confidentiality of Alcohol and Drug Abuse Patient Records regulations: The Federal rules restrict any use of the information to criminally investigate or prosecute any alcohol or drug abuse patient.[facility] HospitalIn the event this information is protected by the Federal Confidentiality of Alcohol and Drug Abuse Patient Records regulations: The Federal rules restrict any use of the information to criminally investigate or prosecute any alcohol or drug abuse patient.[facility] HospitalIn the event this information is protected by the Federal Confidentiality of Alcohol and Drug Abuse Patient Records regulations: The Federal rules restrict any use of the information to criminally investigate or prosecute any alcohol or drug abuse patient.[facility] HospitalIn the event this information is protected by the Federal Confidentiality of Alcohol and Drug Abuse Patient Records regulations: The Federal rules restrict any use of the information to criminally investigate or prosecute any alcohol or drug abuse patient.[facility] HospitalIn the event this information is protected by the Federal Confidentiality of Alcohol and Drug Abuse Patient Records regulations: The Federal rules restrict any use of the information to criminally investigate or prosecute any alcohol or drug abuse patient.[facility] HospitalIn the event this information is protected by the Federal Confidentiality of Alcohol and Drug Abuse Patient Records regulations: The Federal rules restrict any use of the information to criminally investigate or prosecute any alcohol or drug abuse patient.[facility] HospitalIn the event this information is protected by the Federal Confidentiality of Alcohol and Drug Abuse Patient Records regulations: The Federal rules restrict any use of the information to criminally investigate or prosecute any alcohol or drug abuse patient.[facility] HospitalIn the event this information is protected by the Federal Confidentiality of Alcohol and Drug Abuse Patient Records regulations: The Federal rules restrict any use of the information to criminally investigate or prosecute any alcohol or drug abuse patient.[facility] HospitalIn the event this information is protected by the Federal Confidentiality of Alcohol and Drug Abuse Patient Records regulations: The Federal rules restrict any use of the information to criminally investigate or prosecute any alcohol or drug abuse patient.[facility] HospitalIn the event this information is protected by the Federal Confidentiality of Alcohol and Drug Abuse Patient Records regulations: The Federal rules restrict any use of the information to criminally investigate or prosecute any alcohol or drug abuse patient.[facility] HospitalIn the event this information is protected by the Federal Confidentiality of Alcohol and Drug Abuse Patient Records regulations: The Federal rules restrict any use of the information to criminally investigate or prosecute any alcohol or drug abuse patient.[facility] HospitalIn the event this information is protected by the Federal Confidentiality of Alcohol and Drug Abuse Patient Records regulations: The Federal rules restrict any use of the information to criminally investigate or prosecute any alcohol or drug abuse patient.[facility] HospitalIn the event this information is protected by the Federal Confidentiality of Alcohol and Drug Abuse Patient Records regulations: The Federal rules restrict any use of the information to criminally investigate or prosecute any alcohol or drug abuse patient.[facility] HospitalIn the event this information is protected by the Federal Confidentiality of Alcohol and Drug Abuse Patient Records regulations: The Federal rules restrict any use of the information to criminally investigate or prosecute any alcohol or drug abuse patient.[facility] HospitalIn the event this information is protected by the Federal Confidentiality of Alcohol and Drug Abuse Patient Records regulations: The Federal rules restrict any use of the information to criminally investigate or prosecute any alcohol or drug abuse patient.[facility] HospitalIn the event this information is protected by the Federal Confidentiality of Alcohol and Drug Abuse Patient Records regulations: The Federal rules restrict any use of the information to criminally investigate or prosecute any alcohol or drug abuse patient.[facility] HospitalIn the event this information is protected by the Federal Confidentiality of Alcohol and Drug Abuse Patient Records regulations: The Federal rules restrict any use of the information to criminally investigate or prosecute any alcohol or drug abuse patient.[facility] HospitalIn the event this information is protected by the Federal Confidentiality of Alcohol and Drug Abuse Patient Records regulations: The Federal rules restrict any use of the information to criminally investigate or prosecute any alcohol or drug abuse patient.[facility] HospitalIn the event this information is protected by the Federal Confidentiality of Alcohol and Drug Abuse Patient Records regulations: The Federal rules restrict any use of the information to criminally investigate or prosecute any alcohol or drug abuse patient.[facility] HospitalIn the event this information is protected by the Federal Confidentiality of Alcohol and Drug Abuse Patient Records regulations: The Federal rules restrict any use of the information to criminally investigate or prosecute any alcohol or drug abuse patient.[facility] HospitalIn the event this information is protected by the Federal Confidentiality of Alcohol and Drug Abuse Patient Records regulations: The Federal rules restrict any use of the information to criminally investigate or prosecute any alcohol or drug abuse patient.[facility] HospitalIn the event this information is protected by the Federal Confidentiality of Alcohol and Drug Abuse Patient Records regulations: The Federal rules restrict any use of the information to criminally investigate or prosecute any alcohol or drug abuse patient.[facility] HospitalIn the event this information is protected by the Federal Confidentiality of Alcohol and Drug Abuse Patient Records regulations: The Federal rules restrict any use of the information to criminally investigate or prosecute any alcohol or drug abuse patient.[facility] HospitalIn the event this information is protected by the Federal Confidentiality of Alcohol and Drug Abuse Patient Records regulations: The Federal rules restrict any use of the information to criminally investigate or prosecute any alcohol or drug abuse patient.[facility] HospitalIn the event this information is protected by the Federal Confidentiality of Alcohol and Drug Abuse Patient Records regulations: The Federal rules restrict any use of the information to criminally investigate or prosecute any alcohol or drug abuse patient.[facility] HospitalIn the event this information is protected by the Federal Confidentiality of Alcohol and Drug Abuse Patient Records regulations: The Federal rules restrict any use of the information to criminally investigate or prosecute any alcohol or drug abuse patient.[facility] HospitalIn the event this information is protected by the Federal Confidentiality of Alcohol and Drug Abuse Patient Records regulations: The Federal rules restrict any use of the information to criminally investigate or prosecute any alcohol or drug abuse patient.[facility] Reason for Visit (unrecogniz ed section and content) Reason Comments Headache Infusion Specialty Diagnoses / Procedures Referred By Contac t Referred To Contact Neurology / HEADACHE Diagnoses NON-DHE #1 Procedures INFUSION HEADACHE Suzan Driver APRN.[employer] PL[employer]NER [address] [place] [address] Neur Headache Main [address] [place] [address] Referral ID Status Reason Start Date Expiration Date V isits Requested Visits Authorized [id number] Authorized 04/12/2023 02/20/2024 99 99 Reason Comments Future Appointment [place], [place], Any Reason Comments Migraine seen at [facility] yest erday for Migrane and D & [...] INFUSION HEADACHE Maria Del Rosario Hahn MD [address] [place] [address] Neur Headache Main [address] [place] [address] Referral ID Status Reason Start Date Expiration Date Visits Re quested Visits Authorized [id number] Closed 07/28/2022 09/26/2022 1 1 Reason Comments Chronic Migraine Reason Comments Chronic Migraine Reason Comments Insurance Authorization Zomig 5MG nasal spray Reason Comments Infusion Reason Comments Migraine Specialty Diagnoses / Procedures Referred By Contac t Referred To Contact Neurology / HEADACHE Diagnoses POSSIBLE DHE/WAITING FOR ORDERS Procedures INFUSION HEADACHE Self Neur Headache Main [address] [place] [address] Referral ID Status Reason Start Date Expiration Date V isits Requested Visits Authorized [id number] Authorized 11/10/2022 02/08/2023 1 99 Reason Onset Date Comments Refill Request 12/09/2022 Reason Onset Date Comments Refill Request 12/13/2022 Reason Comments Infusion HEADACHE INFUSIONS Reason Comments Insurance Authorization Aimovig 70MG/ML auto-injectors Specialty Diagnoses / Procedures Referred By Contac t Referred To Contact Neurology / HEADACHE Diagnoses NON-DHE #1 Procedures INFUSION HEADACHE Suzan Driver APRN.[employer] [address] [place] [address] Neur Headache Main [address] [place] [id number] Reason Comments Appointment Patient currently re ceiving infusions for headache. She is interested in learning about reboot program. Please schedule patient for evaluation if appropriate to proceed. Reason Comments Migraine Scheduled Active and Recently Administ ered Medications [...] dose 2044 (Given - Provid er: Praveena Augustin, RN) ondansetron (ZOFRAN) injection 4 mg (COMPLETED) 4 mg, IntraVENous, ONCE, On Meg 12/24/20 at 2030, For 1 dose 2043 (Given - Provid er: Praveena Ruffin RN) Scheduled Medication Order 10/18/2021 10/19/2021 10/20/2021 enoxaparin (LOVENOX) injection 40 mg 40 mg, SubCUTAneous, DAILY, First dose on Mon10/19/21 at 1245, Until Discontinued, Indication of Use: Prophylaxis-DVT/PE 1831 (Given - Provider: Adrienne Stephens, PRATIBHA) 0834 (Given - Provider: Clementine Cm RN) lamoTRIgine (LAMICTAL) tablet 50 mg 50 mg, Oral, DAILY, First dose on Mon10/19/21 at 1445, Until Discontinued 1444 (Due) 08 (Given - Provider: Clementine Cm RN) lidocaine [...] 20 mL/lumen 2044 (Given - Provider: Brittney Santana, RN) 1114 (Canceled Entry - Provider: Clementine Cm, PRATIBHA)2100 (Due) Continuous Medication Order 10/18/2021 10/19/2021 10/20/2021 0.9 % sodium chloride infusion (CANCELED) IntraVENous, at 125 mL/hr, CONTINUOUS, Starting on Mon10/19/21 at 1245 1740 (New Bag - Provider: Adrienne Stephens, PRATBIHA) 0714 (Stopped - Provider: Yun Neal RN) [...] section and content) DATE CREATED AUTHOR [facility] DATE CREATED AUTHOR AUTHOR'S ORGANIZ ATION 10/25/2021 [facility] DATE CREATED AUTHOR AUTHOR'S ORGANIZ ATION 05/26/2022 [facility] DATE CREATED AUTHOR AUTHOR'S ORGANIZ ATION 08/02/2022 Sean Roberts [facility] DATE CREATED AUTHOR AUTHOR'S ORGANIZ ATION 03/22/2023 [facility] DATE CREATED AUTHOR AUTHOR'S ORGANIZ ATION [facility]20[facility] DATE CREATED AUTHOR AUTHOR'S ORGANIZ ATION 05/06/2023 [facility] Ordered Prescriptions (unrec ognized section and content) Prescription Sig Dispensed Refills Start Date End Da te lamoTRIgine (LAMICTAL) 25 MG tablet Take 2 tablets by mouth daily 30 tablet 3 10/21/2021 Care Teams (unrecognized sec tion and content) Psychiatric Secretary Relationship Specialty Start Date End Date Angélica Arthur, AIRPLANE ELECTRICAL REPAIRER - [employer]AND PLANNER [address] [place] [id number] PCP - General Nurse Practitioner 12/24/20 Psychiatric Secretary Relationship Specialty Start Date End Date Hoy, Maria Del Rosario M (Historical) PCP - General 05/21/13 Psychiatric Secretary Relationship Specialty Start Date End Date Hoy, Maria Del Rosario M (Historical) PCP - General 05/21/13 Psychiatric Secretary Relationship Specialty Start Date End Date Hoy, Maria Del Rosario M (Historical) PCP - General 05/21/13 Psychiatric Secretary Relationship Specialty Start Date End Date Hoy, Maria Del Rosario M (Historical) PCP - General 05/21/13 Psychiatric Secretary Relationship Specialty Start Date End Date Hoy, Maria Del Rosario M (Historical) PCP - General 05/21/13 Psychiatric Secretary Relationship Specialty Start Date End Date Hoy, Maria Del Rosario M (Historical) PCP - General 05/21/13 Psychiatric Secretary Relationship Specialty Start Date End Date Hoy, Maria Del Rosario M (Historical) PCP - General 05/21/13 Psychiatric Secretary Relationship Specialty Start Date End Date Hoy, Maria Del Rosario M (Historical) PCP - General 05/21/13 Psychiatric Secretary Relationship Specialty Start Date End Date Hoy, Maria Del Rosario M (Historical) PCP - General 05/21/13 Psychiatric Secretary Relationship Specialty Start Date End Date Hoy, Maria Del Rosario M (Historical) PCP - General 05/21/13 Psychiatric Secretary Relationship Specialty Start Date End Date Hoy, Maria Del Rosario M (Historical) PCP - General 05/21/13 Psychiatric Secretary Relationship Specialty Start Date End Date Hoy, Maria Del Rosario M (Historical) PCP - General 05/21/13 Psychiatric Secretary Relationship Specialty Start Date End Date Hoy, Maria Del Rosario M (Historical) PCP - General 05/21/13 Psychiatric Secretary Relationship Specialty Start Date End Date HoNoam beanlas M (Historical) PCP - General 05/21/13 Psychiatric Secretary Relationship Specialty Start Date End Date HoNoam beanlas M (Historical) PCP - General 05/21/13 Psychiatric Secretary Relationship Specialty Start Date End Date HoyNoamMaria Del Rosario M (Historical) PCP - General 05/21/13 Psychiatric Secretary Relationship Specialty Start Date End Date HoyNoamMaria Del Rosario M (Historical) PCP - General 05/21/13 Psychiatric Secretary Relationship Specialty Start Date End Date HoyNoamMaria Del Rosario M (Historical) PCP - General 05/21/13 Psychiatric Secretary Relationship Specialty Start Date End Date HoyNoamMaria Del Rosario M (Historical) PCP - General 05/21/13 Psychiatric Secretary Relationship Specialty Start Date End Date HoNoam beanlas M (Historical) PCP - General 05/21/13 Psychiatric Secretary Relationship Specialty Start Date End Date HoNoam beanlas M (Historical) PCP - General 05/21/13 Psychiatric Secretary Relationship Specialty Start Date End Date HoNoam beanlas M (Historical) PCP - General 05/21/13 Psychiatric Secretary Relationship Specialty Start Date End Date HoNoam beanlas M (Historical) PCP - General 05/21/13 Psychiatric Secretary Relationship Specialty Start Date End Date HoNoam beanlas M (Historical) PCP - General 05/21/13 Psychiatric Secretary Relationship Specialty Start Date End Date HoNoam beanlas M (Historical) PCP - General 05/21/13 Psychiatric Secretary Relationship Specialty Start Date End Date HoNoam beanlas M (Historical) PCP - General 05/21/13 Psychiatric Secretary Relationship Specialty Start Date End Date HoNoam beanlas M (Historical) PCP - General 05/21/13 Psychiatric Secretary Relationship Specialty Start Date End Date HoNoam beanlas M (Historical) PCP - General 05/21/13 Inactive Administered Medications - up to 3 most recent administrations Administered Medications (un recognized section and content) Medication Order MAR Action Action Date Dose Rate Site cyproheptadine 4 mg tab(s) (PERIACTIN) 4 mg, ORAL, ONCE, 1 dose, On Mon04/12/23 at 1130 Given 04/12/2023 12:24 PM EST 4 mg diphenhydrAMINE 25 mg injection (BENADRYL) 25 mg, INTRAVENOUS, NEEDED, 2 doses, Starting on Mon04/12/23 at 1103, Until Mon04/12/23 at 1559, Sedation/Dystonia/Akathis ia/Anxiety 3rd line Given 04/12/2023 11:43 AM EST 25 mg keTORolac 30 mg injection (Toradol) 30 mg, INTRAVENOUS, ONCE, 1 dose, On Mon04/12/23 at 1130, Ketorolac (Toradol) is indicated for the short-term [...] of the opioid, if preferred: N/A Given 04/12/2023 11:42 AM EST 30 mg magnesium sulfate 2 g in NaCl 0.9% 250 mL 2 g, INTRAVENOUS, at 125-250 mL/hr, Administer over 1-2 Hours, ONCE, 1 dose, On Mon04/12/23 at 1130, Magnesium Sulfate IV bolus will be infused [...] Hematology/Oncology 4) Eclampsia or Preeclampsia New Bag/Syringe/Bottle 04/12/2023 12:24 PM EST 2 g 280 mL/hr methocarbamol iv infusion 1,000 mg in NaCl 0.9% 100 mL (ROBAXIN) 1,000 mg, INTRAVENOUS, Administer over 30 Minutes, ONCE, 1 dose, On Mon04/12/23 at 1130, Administer IV while in recumbent position. Maintain position for at least 10-15 minutes following infusion. New Bag/Syringe/Bottle 04/12/2023 11:50 AM EST 1,000 mg NaCl 0.9% 1,000 mL iv bolus 1,000 mL, INTRAVENOUS, at 999 mL/hr, Administer over 1 Hours, ONCE, 1 dose, On Mon04/12/23 at 1130 New Bag/Syringe/Bottle 04/12/2023 11:30 AM EST 1,000 mL 999 mL/hr promethazine 25 mg tab(s) (PHENERGAN) 25 mg, ORAL, EVERY 4 HOURS NEEDED, 2 doses, Starting on Mon04/12/23 at 1103, Until Mon04/12/23 at 1559, Nausea/Vomiting - First Line - Enteral Given 04/12/2023 11:42 AM EST 25 mg Inactive Administered Medications - up to 3 most recent administrations Medication Order MAR Action Action Date Dose Rate Site cyproheptadine 4 mg tab(s) (PERIACTIN) 4 mg, ORAL, ONCE, 1 dose, On Meg 04/13/23 at 0830 Given 04/13/2023 10:36 AM EST 4 mg diphenhydrAMINE 25 mg injection (BENADRYL) 25 mg, INTRAVENOUS, NEEDED, 2 doses, Starting on Meg 04/13/23 at 0819, Until Meg 04/13/23 at 1315, Sedation/Dystonia/Akathis ia/Anxiety 3rd line Given 04/13/2023 9:04 AM EST 25 mg keTORolac 30 mg injection (Toradol) 30 mg, INTRAVENOUS, ONCE, 1 dose, On Meg 04/13/23 at 0830, Ketorolac (Toradol) is indicated for [...] of the opioid, if preferred: N/A Given 04/13/2023 9:09 AM EST 30 mg magnesium sulfate 2 g in NaCl 0.9% 250 mL 2 g, INTRAVENOUS, at 125-250 mL/hr, Administer over 1-2 Hours, ONCE, 1 dose, On Meg 04/13/23 at 0830, Magnesium Sulfate IV bolus will [...] Hematology/Oncology 4) Eclampsia or Preeclampsia New Bag/Syringe/Bottle 04/13/2023 9:46 AM EST 2 g 250 mL/hr methocarbamol iv infusion 1,000 mg in NaCl 0.9% 100 mL (ROBAXIN) 1,000 mg, INTRAVENOUS, Administer over 30 Minutes, ONCE, 1 dose, On Meg 04/13/23 at 0830, Administer IV while in recumbent position. Maintain position for at least 10-15 minutes following infusion. New Bag/Syringe/Bottle 04/13/2023 9:12 AM EST 1,000 mg NaCl 0.9% 1,000 mL iv bolus 1,000 mL, INTRAVENOUS, at 999 mL/hr, Administer over 1 Hours, ONCE, 1 dose, On Mon04/13/23 at 0830 New Bag/Syringe/Bottle 04/13/2023 8:53 AM EST 1,000 mL 999 mL/hr promethazine 25 mg tab(s) (PHENERGAN) 25 mg, ORAL, EVERY 4 HOURS NEEDED, 2 doses, Starting on Mon04/13/23 at 0819, Until Mon04/13/23 at 1315, Nausea/Vomiting - First Line - Enteral Given 04/13/2023 9:03 AM EST 25 mg Inactive Administered Medications - up to 3 most recent administrations Medication Order MAR Action Action Date Dose Rate Site diphenhydrAMINE 25 mg injection (BENADRYL) 25 mg, INTRAVENOUS, NEEDED, 2 doses, Starting on Mon04/14/23 at 0819, Until Mon04/14/23 at 0928, Sedation/Dystonia/Akathisia/Anxiety 3rd line Given 04/14/2023 9:28 AM EST 25 mg Given 04/14/2023 8:46 AM EST 25 mg keTORolac 30 mg injection (Toradol) 30 mg, INTRAVENOUS, ONCE, 1 dose, On Mon04/14/23 at 0830, Ketorolac (Toradol) is indicated for [...] of the opioid, if preferred: N/A Given 04/14/2023 8:49 AM EST 30 mg magnesium sulfate 2 g in NaCl 0.9% 250 mL 2 g, INTRAVENOUS, at 125-250 mL/hr, Administer over 1-2 Hours, ONCE, 1 dose, On Mon04/14/23 at 0830, Magnesium Sulfate IV bolus will [...] Hematology/Oncology 4) Eclampsia or Preeclampsia New Bag/Syringe/Bottle 04/14/2023 10:07 AM EST 2 g 250 mL/hr methocarbamol iv infusion 1,000 mg in NaCl 0.9% 100 mL (ROBAXIN) 1,000 mg, INTRAVENOUS, Administer over 30 Minutes, ONCE, 1 dose, On Mon04/14/23 at 0830, Administer IV while in recumbent position. Maintain position for at least 10-15 minutes following infusion. Restarted 04/14/2023 9:30 AM EST New Bag/Syringe/Bottle 04/14/2023 8:53 AM EST 1,000 mg NaCl 0.9% 1,000 mL iv bolus 1,000 mL, INTRAVENOUS, at 999 mL/hr, Administer over 1 Hours, ONCE, 1 dose, On Mon04/14/23 at 0830 Restarted 04/14/2023 9:30 AM EST 999 mL/h r New Bag/Syringe/Bottle 04/14/2023 8:53 AM EST 1,000 mL 9 99 mL/hr prochlorperazine 10 mg injection (COMPAZINE) 10 mg, INTRAVENOUS, NEEDED, 1 dose, Starting on Mon04/14/23 at 1019, Until Mon04/14/23 at 1028, Nausea/Vomiting - Second Line - Parenteral, IV push over 2-5 minutes. If prochlorperazine PO order also exists, use prochlorperazine IV when patient is unable to tolerate PO. Protect From Light Given 04/14/2023 10:28 AM EST 10 mg promethazine 25 mg tab(s) (PHENERGAN) 25 mg, ORAL, EVERY 4 HOURS NEEDED, 2 doses, Starting on Mon04/14/23 at 0819, Until Mon04/14/23 at 1351, Nausea/Vomiting - First Line - Enteral Given 04/14/2023 8:45 AM EST 25 mg FOR RECORDS PERTAINING TO PATIENTS WHO ARE [...] BE BASED ON THE PRIMARY CLINICAL RECORDS. [facility]. provides no warranty or guarantee of the accuracy or completeness of information in this document.
[2023-05-12] MEDS: 0.9 % SODIUM CHLORIDE 1,000 ML 100 ML IV (17:01)
[2023-05-12] MEDS: KETOROLAC TROMETHAMINE 30 MG/ML VIAL IVP (18:35)
[2023-05-12] MEDS: PROMETHAZINE HCL 25 MG in 0.9 % SODIUM CHLORIDE 50 ML 204 MG IV (18:36)
[2023-05-12 19:27] LABS: Glucometer 170 mg/dL (74-106)
[2023-05-12] MEDS: ACETAMINOPHEN 500 MG TABLET 1000 MG PO (20:47)
[2023-05-13] MEDS: 0.9 % SODIUM CHLORIDE 1,000 ML 100 ML IV (01:33)
[2023-05-13] MEDS: KETOROLAC TROMETHAMINE 30 MG/ML VIAL IVP (02:52)
[2023-05-13] MEDS: ONDANSETRON PF 4 MG/2 ML VIAL IV ×2 (02:52→09:09)
[2023-05-13 04:00] VITALS: BP 109/70; PULSE 74; RESP 18; TEMP 36.6
[2023-05-13 05:13] LABS: PCO2 VBG 42.1 mmHg (40.0-52.0); pH VBG 7.316 (7.330-7.430)
[2023-05-13 05:19] LABS: Basophils Percent Auto 0.1 % (0.2-2.0); Hematocrit 36.4 % (36.0-48.0); Hemoglobin 11.6 g/dL (12.0-16.0); Immature Granulocytes Abs Auto 0.04 10^3/uL (0.00-0.03); Immature Granulocytes Pct Auto 0.4 % (0.0-0.5); Lymphocytes Absolute Auto 0.7 10^3/uL (1.2-3.8); Lymphocytes Percent Auto 6.6 % (20.5-60.0); Mean Corpuscular HGB Conc 31.9 g/dL (29.9-35.2); Mean Corpuscular Hemoglobin 28.2 pg (26.7-34.0); Mean Corpuscular Volume 88.6 fL (81.0-99.0); Mean Platelet Volume 9.8 fL (9.5-13.5); Monocytes Absolute Auto 0.2 10^3/uL (0.3-0.8); Monocytes Percent Auto 1.8 % (1.7-12.0); Neutrophils Percent Auto 91.1 % (43.0-75.0); Platelet Count 248 10^3/uL (150-450); Red Blood Count 4.11 10^6/uL (4.20-5.40); Red Cell Distribution Width 12.5 % (11.0-15.0)
[2023-05-13 08:00] VITALS: BP 125/73; PULSE 66; RESP 18; TEMP 36.7; O2SAT 97
[2023-05-13 08:58] VITALS: TEMP 36.7
--- NOTE | 2023-05-13 09:21 | PM.HP ---
HPI H&P: HPI History of Present Illness Chief complaint: HEADACHE INTRACTABLE MIGRAINE Narrative: patient is a 27-year-old female with past medical history of chronic migraine headaches without aura. She sees a neurologist at the [facility] and sees her monthly for infusions, and is also on a new controller medication as well as abortive medication of Zomig. Yesterday she developed a migraine headache with some bilateral conjunctivitis and presented to the Emergency Room with increased nausea and vomiting despite trying her home medications. She was admitted for observation overnight. This morning she is without any nausea or vomiting, does state that she is tired but would just like to go home and sleep in her own bed. Her laboratory results this morning are within normal range. Patient will be discharged home today with refills on oral Phenergan, tramadol, Toradol. She has a follow-up appointment with her neurologist 05/31/2023 she is encouraged to keep this. Also tobramycin was sent by the Emergency Room physician for her bilateral conjunctivitis. Patient denies any other issues or complaints at the time of admission/discharge. Opioid HPI Opioid Management Most Recent Opioid Data: Last Pain Assessment 05/13/23 12:19 Last ED Pain Assessment 05/12/23 13:23 Last MAR Pain Assessment 05/13/23 03:59 Last ORT Total Score 1 05/12/23 16:27 Last ORT Risk Category Low Risk 05/12/23 16:27 Review of Systems ROS Narrative ROS: a complete review of systems were reviewed with patient and are positive as below or listed in History of Chief Complaint. General: no fever, chills, night sweats Head:headache,no trauma, visual changes, nausea or vomiting Skin: no reported rashes, itching or sores Eyes: no blurriness of vision, bilateral eye redness Ears: no reported hearing loss, vertigo, earache, or tinnitus Throat: no sore throat, hoarseness, swelling of neck, or tongue pain Heart: no chest pain Lungs: no shortness of breath or cough GI: no diarrhea or vomiting/nausea Urinary: no urinary urgency, frequency or pain Neuro: no numbness or tingling HEM: no bleeding issues or bruising ENDO: no thyroid problems Psych: no anxiety or depression PFSH PFSH Medical History Chronic pain disorder ?G89.4 - Chronic pain syndrome (ICD-10) Conjunctivitis ?H10.9 - Unspecified conjunctivitis (ICD-10) Migraine ?G43.909 - Migraine, unspecified, not intractable, without status migrainosus (ICD-10) Viral upper respiratory tract infection with cough ?J06.9 - Acute upper respiratory infection, unspecified (ICD-10) Seizure disorder ?G40.909 - Epilepsy, unspecified, not intractable, without status epilepticus (ICD-10) Bipolar disorder ?F31.9 - Bipolar disorder, unspecified (ICD-10) Pelvic pain ?R10.2 - Pelvic and perineal pain (ICD-10) Headache ?R51.9 - Headache, unspecified (ICD-10) Bilateral occipital neuralgia ?M54.81 - Occipital neuralgia (ICD-10) Migraine ?G43.909 - Migraine, unspecified, not intractable, without status migrainosus (ICD-10) Post-op pain ?G89.18 - Other acute postprocedural pain (ICD-10) Combative behavior ?R46.89 - Other symptoms and signs involving appearance and behavior (ICD-10) Postoperative nausea and vomiting ?R11.2 - Nausea with vomiting, unspecified (ICD-10) ?Z98.890 - Other specified postprocedural states (ICD-10) Vaginal bleeding ?N93.9 - Abnormal uterine and vaginal bleeding, unspecified (ICD-10) Abscess of vagina ?N76.0 - Acute vaginitis (ICD-10) PCOS (polycystic ovarian syndrome) ?E28.2 - Polycystic ovarian syndrome (ICD-10) Mitral valve prolapse ?I34.1 - Nonrheumatic mitral (valve) prolapse (ICD-10) Vaginal delivery ?O80 - Encounter for full-term uncomplicated delivery (ICD-10) Nausea ?R11.0 - Nausea (ICD-10) GERD (gastroesophageal reflux disease) ?K21.9 - Gastro-esophageal reflux disease without esophagitis (ICD-10) Depression ?F32.A - Depression, unspecified (ICD-10) Blood in urine ?R31.9 - Hematuria, unspecified (ICD-10) Acne ?L70.9 - Acne, unspecified (ICD-10) Dyspareunia Brain mass ?G93.89 - Other specified disorders of brain (ICD-10) Pneumonia ?J18.9 - Pneumonia, unspecified organism (ICD-10) Kidney stones ?N20.0 - Calculus of kidney (ICD-10) COVID-19 ?U07.1 - COVID-19 (ICD-10) Bronchitis ?J40 - Bronchitis, not specified as acute or chronic (ICD-10) Asthma ?J45.909 - Unspecified asthma, uncomplicated (ICD-10) Stress incontinence ?N39.3 - Stress incontinence (female) (male) (ICD-10) Dysuria ?R30.0 - Dysuria (ICD-10) Seizure ?R56.9 - Unspecified convulsions (ICD-10) Neck pain ?M54.2 - Cervicalgia (ICD-10) Migraine ?G43.909 - Migraine, unspecified, not intractable, without status migrainosus (ICD-10) Low back pain ?M54.50 - Low back pain, unspecified (ICD-10) Head injury ?S09.90XA - Unspecified injury of head, initial encounter (ICD-10) Anxiety ?F41.9 - Anxiety disorder, unspecified (ICD-10) Surgical History H/O laparoscopy (07/21/22) ?Z98.890 - Other specified postprocedural states (ICD-10) S/P RAVI-BSO ?Z90.710 - Acquired absence of both cervix and uterus (ICD-10) ?Z90.722 - Acquired absence of ovaries, bilateral (ICD-10) ?Z90.79 - Acquired absence of other genital organ(s) (ICD-10) Hx laparoscopic cholecystectomy ?Z90.49 - Acquired absence of other specified parts of digestive tract (ICD-10) H/O: ?Z98.891 - History of uterine scar from previous surgery (ICD-10) History of appendectomy ?Z90.49 - Acquired absence of other specified parts of digestive tract (ICD-10) Family History Other Acid reflux Acute renal disease Afib Chromosomal disorder Delayed developmental milestones Diabetes Family history of hypertension High cholesterol Neuro-irritability due to autonomic dysfunction 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 level of school completed/degree received: high school graduate Gender Identity: female Meds Home Medications and Allergies Home Medications ?Medication ?Instructions ?Recorded ?Confirmed ?Type baclofen 10 mg tablet 10 mg PO TID spasms 07/20/22 05/12/23 History diazepam 10 mg tablet 10 mg PO BID 07/20/22 05/12/23 History epinephrine 0.3 mg/0.3 mL 0.3 mg IM Q10M PRN anaphylaxis 07/20/22 05/12/23 History injection, auto-injector estradiol 0.5 mg tablet 0.5 mg PO QAM 01/06/23 05/12/23 History diphenhydramine HCl 25 mg capsule 75 mg PO Q6H PRN migraine headache 01/26/23 05/12/23 History (Benadryl) ibuprofen 800 mg tablet 800 mg PO Q8H PRN pain 01/26/23 05/12/23 History lamotrigine 200 mg tablet 200 mg PO BID 01/26/23 05/12/23 History orphenadrine citrate 100 mg 100 mg PO BID PRN migraine 01/26/23 05/12/23 History tablet,extended release promethazine 25 mg tablet 12.5 mg PO Q6H PRN nausea and 01/26/23 05/12/23 History vomiting ondansetron 4 mg disintegrating 4 mg PO Q6H PRN nausea and 02/26/23 05/12/23 Rx tablet vomiting #20 tabs albuterol sulfate 2.5 mg/3 mL 2.5 mg inhalation Q4H PRN 03/03/23 05/12/23 History (0.083 %) solution for nebulization shortness of breath or wheezing ketorolac 10 mg tablet 10 mg PO Q6H PRN migraine headache 03/03/23 05/12/23 History magnesium oxide 400 mg PO .qhs 03/03/23 05/12/23 History trazodone 300 mg tablet 300 mg PO .qhs 03/03/23 05/12/23 History budesonide-formoterol HFA 160 2 inh inhalation Q12H #10.2 grams 03/04/23 05/12/23 Rx mcg-4.5 mcg/actuation aerosol inhaler (Symbicort) erenumab-aooe 70 mg/mL 70 mg subcut ONCE PRN migraine 04/27/23 05/12/23 History subcutaneous auto-injector headache (Aimovig Autoinjector) lithium carbonate 300 mg tablet 300 mg PO Q12H 04/27/23 05/12/23 History tobramycin 0.3 %-dexamethasone 0.1 1 drp ophthalmic (eye) Q6H 7 days 05/12/23 Rx % eye drops,suspension #5 mL ketorolac 10 mg tablet 10 mg PO Q8H PRN pain 2 days #6 05/13/23 Rx tabs promethazine 25 mg tablet 25 mg PO Q6H PRN nausea and 05/13/23 Rx vomiting 3 days #12 tabs tramadol 50 mg tablet 50 mg PO BID PRN pain 3 days #6 05/13/23 Rx tabs Allergies Allergy/AdvReac Type Severity Reaction Status Date / Time dihydroergotamine Allergy Unknown Verified 05/12/23 17:18 vortioxetine Allergy Unknown Verified 05/12/23 17:19 buspirone Allergy Hives Verified 03/03/23 09:09 carbamazepine Allergy Unknown Verified 03/03/23 09:09 levetiracetam [From Keppra] Allergy ITCHING Verified 03/03/23 09:09 azithromycin [From Zithromax] AdvReac Intermediate Hives Verified 03/03/23 09:09 bee venom protein (honey bee) AdvReac Intermediate Hives Verified 03/03/23 09:09 metoclopramide [From Reglan] AdvReac Intermediate panic Verified 03/03/23 09:09 adhesive tape AdvReac Mild Rash Verified 03/03/23 09:09 cephalexin [From Keflex] AdvReac Mild Hives Verified 03/03/23 09:09 dextromethorphan AdvReac Mild Unknown Verified 03/03/23 09:09 [From [place] [facility]] pyrilamine [From [place] [facility]] AdvReac Mild Unknown Verified 03/03/23 09:09 propranolol AdvReac Hives Verified 03/03/23 09:09 Exam Narrative Exam Narrative: General: Patient is alert, and oriented to person, place and time with normal affect, proper hygiene Skin: no visible rashes, or ulcers Head: atraumatic, acephalic Eyes: PERRLA, no nystagmus present, conjunctiva with erythema bilaterally, no discharge, no scleral icterus Ears: normal gross auditory acuity Heart: Normal rate and rhythm, no murmurs/rubs/gallops Lungs: no audible wheezes, crackles and normal breath sounds all lung duarte Abdomen: Normal audible bowel sounds, no distension, No palpable masses, no organomegaly, no rebound/guarding/ or rigidity Musculoskeletal:no swelling bilateral lower extremities Neuro: CN II-X grossly intact Constitutional Vital Signs, click to edit/add: Last Vital Signs Temp 98.0 F 05/13/23 08:58 Pulse 66 05/13/23 08:00 Resp 18 05/13/23 08:00 BP 125/73 05/13/23 08:00 Pulse Ox 97 05/13/23 08:00 O2 Del Method Room Air 05/13/23 04:00 Results Labs Labs: Short CBC 05/13/23 Range/Units 04:57 WBC 11.0 (4.0-11.0) 10^3/uL Hgb 11.6 L (12.0-16.0) g/dL Hct 36.4 (36.0-48.0) % Plt Count 248 (150-450) 10^3/uL ABG ABG results: 05/13/23 04:57 VBG pH 7.316 L VBG pCO2 42.1 Assessment and Plan Assessment and Plan (1) Migraine: Assessment and Plan: patient received Toradol, Benadryl, promethazine which seemed to improve her symptoms. She'll be discharged home later today with refills. She is to keep her appointment with her neurologist in May. Qualifiers: Migraine type: chronic migraine (15 or more days per month) without aura Status migrainosus presence: with status migrainosus Intractability: intractable Qualified Code(s): G43.711 - Chronic migraine without aura, intractable, with status migrainosus (2) Acute conjunctivitis, bilateral: Assessment and Plan: tinea tobramycin ?7 days Qualifiers: Acute conjunctivitis type: bacterial Qualified Code(s): H10.33 - Unspecified acute conjunctivitis, bilateral Plan patient is observation status and is expected to be discharged home later today.
[2023-05-13 12:19] VITALS: BP 132/55; PULSE 76; RESP 18; TEMP 36.6; O2SAT 94
--- NOTE | 2023-05-13 14:52 | PC.NURSE ---
Project/[employer] asked Marcelle Kelley Rn to print off discharge instructions at this time as rfp writer and primary nurse cannot print discharge instructions
--- NOTE | 2023-05-13 15:37 | PC.NURSE ---
patient informed aid at time of discharge that she had d/c paper work from nurse and was ready to go. nursing called patient and educated patient on discharge instructions and to keep follow up with neurologist. patient refused to return to get copy of discharge instructions.
--- NOTE | 2023-05-13 16:06 | P.DS_ITS ---
DS: Providers Provider Date of admission: 05/12/23 16:04 Primary care physician: Lamont Blair MD Admitting clinician: Lamont Blair Discharging clinician: Krystle Hallman DS: Diagnosis Discharge Diagnosis (1) Migraine: Qualifiers: Intractability: intractable Migraine type: chronic migraine (15 or more days per month) without aura Status migrainosus presence: with status migrainosus Qualified Code(s): G43.711 - Chronic migraine without aura, intractable, with status migrainosus (2) Acute conjunctivitis, bilateral: Qualifiers: Acute conjunctivitis type: bacterial Qualified Code(s): H10.33 - Unspecified acute conjunctivitis, bilateral DS: Summary Hospital Course Hospital Course: please see H and P dated 05/13/23 Status at Discharge Functional status at discharge: independent ambulation Overall status at discharge: patient is back to baseline Time Spent with Patient Time attestation: Total time spent providing and/or coordinating discharge services: Time spent: less than 30 minutes Exam Narrative Exam Narrative: please see H and P exam dated 05/13/23 Constitutional Vital Signs, click to edit/add: Last Vital Signs Temp 97.9 F 05/13/23 12:19 Pulse 76 05/13/23 12:19 Resp 18 05/13/23 12:19 BP 132/55 05/13/23 12:19 Pulse Ox 94 L 05/13/23 12:19 O2 Del Method Room Air 05/13/23 12:19 DS: Data Data Completed and Pending Labs on day of discharge: Labs from last 24 hours 05/13/23 05/12/23 04:57 19:15 WBC 11.0 RBC 4.11 L Hgb 11.6 L Hct 36.4 MCV 88.6 MCH 28.2 MCHC 31.9 RDW 12.5 Plt Count 248 MPV 9.8 Neut % (Auto) 91.1 H Lymph % (Auto) 6.6 L [place] % (Auto) 1.8 Eos % (Auto) 0.0 L Baso % (Auto) 0.1 L Neut # (Auto) 10.0 H Lymph # (Auto) 0.7 L [place] # (Auto) 0.2 L Eos # (Auto) 0.0 Baso # (Auto) 0.0 Abs Immat Gran (auto) 0.04 H Imm/Tot Granulo (auto) 0.4 VBG pH 7.316 L VBG pCO2 42.1 POC Glucose 170 H Discharge Plan Discharge Disposition: Home, Self-Care Discharge Medications: New tobramycin-dexamethasone 0.3-0.1 % drops,suspension 1 drp ophthalmic (eye) Q6H 7 Days Qty: 5 0RF Rx Instructions: apply to both eyes promethazine 25 mg tablet 25 mg PO Q6H PRN (Reason: nausea and vomiting) 3 Days Qty: 12 0RF ketorolac 10 mg tablet 10 mg PO Q8H PRN (Reason: pain) 2 Days Qty: 6 0RF tramadol 50 mg tablet 50 mg PO BID PRN (Reason: pain) 3 Days Qty: 6 0RF Rx Instructions: ICD: G43.11 Continued baclofen 10 mg tablet 10 mg PO TID diazepam 10 mg tablet 10 mg PO BID epinephrine 0.3 mg/0.3 mL auto-injector 0.3 mg IM Q10M PRN (Reason: anaphylaxis) Rx Instructions: for 2 doses ondansetron 4 mg tablet,disintegrating 4 mg PO Q6H PRN (Reason: nausea and vomiting) Qty: 20 0RF albuterol sulfate 2.5 mg /3 mL (0.083 %) solution for nebulization 2.5 mg inhalation Q4H PRN (Reason: shortness of breath or wheezing) trazodone 300 mg tablet 300 mg PO .qhs magnesium oxide 400 mg magnesium tablet 400 mg PO .qhs ketorolac 10 mg tablet 10 mg PO Q6H PRN (Reason: migraine headache) budesonide-formoterol [Symbicort] 160-4.5 mcg/actuation HFA aerosol inhaler 2 inh inhalation Q12H Qty: 10.2 0RF Aimovig Autoinjector 70 mg/mL auto-injector 70 mg SUBCUT ONCE PRN (Reason: migraine headache) lithium carbonate 300 mg tablet 300 mg PO Q12H estradiol 0.5 mg tablet 0.5 mg PO QAM ibuprofen 800 mg tablet 800 mg PO Q8H PRN (Reason: pain) promethazine 25 mg tablet 12.5 mg PO Q6H PRN (Reason: nausea and vomiting) orphenadrine citrate 100 mg tablet extended release 100 mg PO BID PRN (Reason: migraine) lamotrigine 200 mg tablet 200 mg PO BID diphenhydramine HCl [Benadryl] 25 mg capsule 75 mg PO Q6H PRN (Reason: migraine headache) Activity: increase activity as tolerated Diet: advance to your usual diet Print Language: Amharic Patient Instructions: Tobramycin (Into the eye), Promethazine (By mouth), Ketorolac (By mouth), Tramadol (By mouth), Acute Headache (DC) Forms: Portal Instructions Follow Up Appointments: Keep appt with Neurologist may 31, 2023 Discharge Date/Time: 05/13/23 13:20
--- NOTE | 2023-05-15 15:51 | CM.DCFOLLOWU ---
05/14- 1st attempt. No answer
--- NOTE | 2023-05-17 12:35 | CM.DCFOLLOWU ---
2nd attempt- no answer
--- NOTE | 2023-05-18 12:41 | CM.DCFOLLOWU ---
Person spoke with: Sandie Nicholson How are you feeling? better How is your pain? 6 put have been worse Did you understand your discharge instructions? yes Do you have any questions about your discharge instructions? no Were you given any prescriptions at discharge? yes Were you able to get your prescriptions filled? yes Do you understand how to take your medications as ordered? yes Do you have any questions about your follow up appointment and do you plan to keep your follow up appointment? no Is there anything else that you would like to discuss? no Questions/Comments/Concerns/Other: none
== END 2023-05-13 13:20 | disposition home or self-care (01) ==
LOC: ER 16:13 → MS 16:15
PROVIDERS: Admitting Provider Family Medicine; Emergency Provider Emergency Medicine; PCP Family Medicine; Visit Provider Family Medicine
DX: G43.711 Chronic migraine without aura, intractable, with status migrainosus (principal); H10.33 Unspecified acute conjunctivitis, bilateral; G89.4 Chronic pain syndrome; G40.909 Epilepsy, unspecified, not intractable, without status epilepticus; F31.9 Bipolar disorder, unspecified; K21.9 Gastro-esophageal reflux disease without esophagitis; J45.909 Unspecified asthma, uncomplicated; F41.9 Anxiety disorder, unspecified; Z79.899 Other long term (current) drug therapy; Z90.49 Acquired absence of other specified parts of digestive tract; Z90.710 Acquired absence of both cervix and uterus; Z90.722 Acquired absence of ovaries, bilateral; Z90.79 Acquired absence of other genital organ(s); Z98.891 History of uterine scar from previous surgery; Z98.890 Other specified postprocedural states; Z87.442 Personal history of urinary calculi; Z87.01 Personal history of pneumonia (recurrent); Z86.16 Personal history of COVID-19
CPT/HCPCS: 36415; 82800; 85025; 96361; 96365; 96367; 96375; 96376; 99285; G0378; J1170; J2930

== ENCOUNTER 2023-05-29 19:13 | Emergency (ER) | payer OTHER, SELFPAY ==
--- OUTSIDE RECORDS SUMMARY | 2023-05-29 19:21 | XMS_ITS | CCD ---
Author Organization [facility] Care Team Providers Care Terrazzo Finisher Name Role Phone Maria Del Rosario Hahn (Historical) Primary Care Provide r Unavailable Daniels CONCRETE SMOOTHER - CEMENTER OIL WELL, Angélica Santiago Primary Care Provider DANIELKrupa ANGÉLICA Santiago Primary Care Unavailable VIELKA CHING Attending Unavailable Kuns CONCRETE SMOOTHER - CEMENTER OIL WELL, Angélica Santiago Primary Care Provider LUCILA MOTA Attending Unavailable LYNDSEY STEWART Referring Unavailable SANDHYA ANGÉLICA Santiago Primary Care Unavailable LUCILA MOTA Admitting Unavailable [...] REQUEST, DR ABDALLA LISTED Primary Care Unavaila ble SUKHDEEP DOCKERY Attending Unavailable SUKHDEEP DOCKERY Admitting Unavailable KUNKrupa, DR ANGÉLICA Santiago Primary Care Unavailable GRECHNY ., MARY WHITNEY Consulting Unavaildeshaun LAURENT, JASS Consulting Unavailable SUKHDEEP DOCKERY Attending Unavailable KUNKrupa, DR ANGÉLICA Santiago Primary Care Unavailable SUKHDEEP DOCKERY Admitting Unavailable HAY ., DR HARMAN Consulting Unavailable SUKHDEEP DOCKERY Consulting Unavailable TONY DAHL Consulting Unavailable FAWWAD, LEW H Admitting Unavailable [...] GOMEZ Primary Care Unavailable HAY ., DR HRAMAN Attending Unavailable HAY ., DR HARMAN Admitting Unavailable NEWSTEWART, NICHOLAS Consulting Unavailable UNLU, SINDY Consulting Unavailable LEONARDO ., DR GUTIERREZ Admitting Unavailable LEONARDO ., DR GUTIERREZ Consulting Unavailable [facility] Primary Care Unavailable LEONARDO ., DR GUTIERREZ Attending Unavailable KUNS, DR ANGÉLICA Santiago Primary Care Unavailable LEONARDO ., DR GUTIERREZ Admitting Unavailable LEONARDO ., DR GUTIERREZ Attending Unavailable LEONARDO ., DR GUTIERREZ Consulting Unavailable LEONARDO ., DR GUTIERREZ Admitting Unavailable LEONARDO ., DR GUTIERREZ Attending Unavailable NADERER, DR SPENSER Garcia Primary Care Unavailable [facility] Primary Care Unavailable HAY ., DR HARMAN Consulting Unavailable HAY ., DR HARMAN Admitting Unavailable HAY ., DR HARMAN Attending Unavailable NICOLE MEDELLIN Consulting Unavailable KUNKrupa, DR ANGÉLICA Santiago Primary Care Unavailable MARKER ., DR ONEAL Attending Unavailable MARKER ., DR ONEAL Consulting Unavailable MARKER ., DR ONEAL Admitting Unavailable SCHNEROBIN KING Consulting Unavailable SAY, MANJINDER Attending Unavailable SAY, [...] NADERERSPENSER Attending Unavailable LEONARDO, ZAY Attending Unavailable LEONARDOHARRISY Attending Unavailable BIDDLECOM, SUZAN Referring Unavailable BIDDLECOM, [...] Drug Allergy 1 Hives, Other: See Comments [facility] (2 sources) carBAMazepine Drug Allergy 1 Other (See Comments) [facility] (20 sources) Cephalexin; Translations: [CEPHALEXIN] Drug Allergy 1 Hives, Rash [facility] (20 sources) Metoclopramide; Translations: [METOCLOPRAMIDE] Drug Allergy 1 Hives, Intolerance [facility] (2 sources) Propranolol Drug Allergy 1 Hives, Other (See Comments) [facility] (20 sources) Adhesive Tape-Silicones; Translations: [ADHESIVE TAPE-SILICONES] Drug Allergy 2 Rash [facility] (20 sources) Dextromethorphan / Pyrilamine; Translations: [PYRILAMINE-DEXTROME THORPHAN] Drug Allergy 2 [facility] Work Phone: (20 sources) vortioxetine; Translations: [VORTIOXETINE] Drug Allergy 2 [facility] Work Phone: (20 sources) Dihydroergotamine; Translations: [DIHYDROERGOTAMINE] Drug Allergy 3 Intolerance [facility] (1 source) Azithromycin Drug Allergy [facility] (1 source) bee venom Drug allergy (disorder) [facility] (1 source) Cephalexin Drug Allergy [facility] (1 source) Desonide Drug Allergy [facility] (1 source) Iothalamate Drug Allergy [facility] (1 source) Propranolol Drug Allergy 1 [facility] (1 source) [place] DM Drug allergy (disorder) 2 [facility] (13 sources) levETIRAcetam; Translations: [LEVETIRACETAM] Drug Allergy 3 Itching [facility] Work Phone: (2 sources) Valproate; Translations: [DIVALPROEX] Drug Allergy 4 Hives [facility] Work Phone: Medications Current Medications Medication Drug [...] every morning before meals polyethylene glycol 3350 31279 mg powder for oral solution (1 source) [...] (ZOMIG) 5 mg nasal spray Use 1 Jber in the nose as needed at onset of migraine headache. If symptoms persist or return, may repeat dose in other nostril after 2 hours. Maximum of 2 sprays per 24 hours 10 Each 2 03/17/2023 Active Start: 06-24-2022 ZOLMitriptan ( ZOMIG) 5 mg nasal spray Use 1 Jber in the nose as needed at onset of migraine headache. If symptoms persist or return, may repeat dose in other nostril after 2 hours. Maximum of 2 sprays per 24 hours 10 Each 2 06/24/2022 Active Start: 06-24-2022 take 1 spray(s) nasa l route every twenty-four hours as needed ZOLMitriptan (ZOMIG) 5 mg nasal spray Use 1 Jber in the nose as needed. SPRAY IN 1 NOSTRIL AT ONSET OF MIGRAINE HEADACHE. If symptoms persist or return, may repeat dose after 2 hours. Maximum: 5 mg/dose; 10 mg per 24 hours 10 Each 2 06/24/2022 Active Comment on above: Use 1 Jber in the n ose as needed. SPRAY IN 1 NOSTRIL AT ONSET OF MIGRAINE HEADACHE. If symptoms persist or return, may repeat dose after 2 hours. Maximum: 5 mg/dose; 10 mg per 24 hours Use 1 Jber in the n ose as needed at [...] 08-14-2021 Episodic Other aftercare (1 source) Other linesperson (current) drug therapy; Translations: [OTH REIMBURSEMENT DIRECTOR CURRENT DRUG THERAPY] Onset: 06-22-2022 Episodic Other [...] Test Name Value Interpretation Reference Range Facility CNOVon 04-14-2023 CNOV Office Visit (NHMNS2) ---- CONI NICHOLSON ([id number]) 1995 F Date Time Provider Department 04/14/23 8:30 AM SUZAN DRIVER [facility] During your visit today, we recorded the following information about you: Suzan Driver APRN.CEMENTER OIL WELL 04/14/2023 10:49 AM Signed Headache Center Infusion [...] Level: 4/10 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 Short and residential memory, cognition and general [...] which included preparing to see the patient, deum-tt-qiir patient care, completing clinical documentation, obtaining and/or reviewing separately obtained history, performing a medically appropriate examination, counseling and educating the patient/family/managed care coordinator, and ordering medications, tests, or procedures. Suzan Driver APRN.[facility] Headache Section [facility] Suzan Driver APRN.CNP 04/14/2023 10:49 AM Signed Follow up/ discharge plan: f/u in 3 months Start aimovig this Aimovig Information Aimovig is a CGRP monoclonal antibody (MAB). CGRP is a substance in the brain that plays a chong role in causing migraine. Aimovig was specifically developed t (more content not included)... Normal [facility] CNPNon 04-13-2023 [facility] Telephone (VTMNS2) ---- CONI NICHOLSON ([id number]) 1995 F Date Time Provider Department 04/13/23 LOGAN BARTH [facility] During your visit today, we recorded [...] (ZOMIG) 5 mg nasal spray Use 1 Jber in the nose as needed at onset [...] Encounter Status:Closed by JOHANA CANCINO on 04/13/23 [facility] CNOVon 04-12-2023 CNOV Office Visit (VTMNS2) ---- CONI NICHOLSON ([id number]) 1995 F Date Time Provider Department 04/12/23 1:30 PM SUZAN DRIVER [facility] During your visit today, we recorded the following information about you: Suzan Driver APRN.CEMENTER OIL WELL 04/12/2023 11:52 AM Signed General Headache Education [...] much light. These can be obtained at [employer] or [employer]: see list below. 2. Limit use of acute treatments (hcdb-stt-puqmnes medications, triptans, etc.) to no more than [...] and quiet environment. Relax and reduce stress. Qakwtgq1Chavn is a free andrzej that can instruct you on some simple relaxtion and breathing techniques. Http://Evoinfinity is a free website that provides teaching [...] epilepsy i (more content not included)... Normal [facility] 03-27-2023 CNPRadha Telephone (MNOPRX) ---- CONI NICHOLSON ([id number]) 1995 F Date Time Provider Department 03/27/23 ANGELY COTTON [facility]OP[facility] During your visit today, we recorded the following information about you: Angely Cotton RN 03/27/2023 1:05 PM Signed [facility] received prescription(s) for Aimovig 70MG/ML auto-injectors . Benefits investigation was conducted, indicating that a prior authorization is required. PA was initiated and pending review through [employer]+. All pertinent clinical information was submitted to insurance. [facility] Chong: [id number] Ordering Provider: Logan Barth APRN.Angely Schaefer RN [facility] P: , F: Angely Cotton RN 04/03/2023 12:43 PM Signed Ambulatory Pharmacy Prior Authorization Note Provider Intervention Required?: No- Pharmacy completed on your behalf. Rx Plan: Medicaid MCO ([facility]) Drug: Aimovig 70MG/ML auto-injectors Cover My Meds Chong: [id number] Determination: Approved Prior Authorization/Case #: n/a Prior [...] refills. Prescriptions will now be processed through [facility] for determination of next steps. For questions relating to this submission, please contact [facility] at [phone] Allergies As of Date: 03/27/2023 Noted Allergy [...] Date Reviewed: 03/23/2023 Reviewed by: Logan Barth APRN.CEMENTER OIL WELL - Fully Assessed Reason for Visit: Insurance Authorization [[id number]] Cmt: Aimovig 70MG/ML auto-injectors Prescriptions as of 04/03/2023 - Phentermine HCl 37.5 mg tablet take 1 tablet by mouth every morning before meals - erenumab-aooe (AIMOVIG AUTOINJECTOR) 70 mg/mL auto-injector Inject 1 mL subcutaneously once every month. Do not shake. - ZOLMitriptan (ZOMIG) 5 mg nasal spray Use 1 Jber in the nose as needed at onset [...] Encounter Status:Closed by [facility]TON [facility]03[facility] (NIQ) ---- CONI NICHOLSON ([id number]) 1995 F Date Time Provider Department 03/21/23 [...] Date Reviewed: 12/12/2022 Reviewed by: Logan Barth APRN.CEMENTER OIL WELL - Fully Assessed Reason for Visit: Patient Request [2116] Cmt: Headache infusions Prescriptions as of 03/21/2023 - ZOLMitriptan (ZOMIG) 5 mg nasal spray Use 1 Jber in the nose as needed at onset [...] Encounter Status:Closed by MENDOZA DOOLEY on 03/21/23 [facility] CNPNon 12-13[facility]2022 [facility] ---- CONI NICHOLSON ([id number]) 1995 F Date Time Provider Department 12/13/22 LOGAN BARTH [facility] During your visit today, we recorded [...] Date Reviewed: 12/12/2022 Reviewed by: Logan Barth APRN.CEMENTER OIL WELL - Fully Assessed Prescriptions as of 12/13/2022 [...] (ZOMIG) 5 mg nasal spray Use 1 Jber in the nose as needed at onset [...] Status:Closed by JANNETTE MCLEOD on 12/13/22 [facility] CONI NICHOL[facility] ([id number]) 1995 F Date Time Provider Department 12/13/22 LOGAN BARTH During your visit today, we recorded the following information about you: Mendoza Dooley 12/13/2022 2:27 PM Signed Called patient to schedule for 3 days of Non DHE IV infusions. She started she was currently driving and would call back to schedule Logan Barth APRN.CEMENTER OIL WELL P Headache Infusion Scheduling Pool; P C21 [...] Date Reviewed: 12/12/2022 Reviewed by: Logan Barth APRN.CEMENTER OIL WELL - Fully Assessed Reason for Visit: Infusion [...] (ZOMIG) 5 mg nasal spray Use 1 Jber in the nose as needed at onset [...] Status:Closed by MENDOZA DOOLEY on 12/13/22 [facility] CNPN Telephone (NIQ) ---- CONI NICHOLSON ([id number]) 1995 F Date Time Provider Department 11/10/22 [...] get infusions scheduled. Number to return call [phone] Okay to leave a message ? Yes Last office visit 10/12/22 with [facility] Next office visit Not scheduled. Thank you calling [facility]. You will receive a return [...] Date Reviewed: 10/12/2022 Reviewed by: Suzan Driver APRN.CEMENTER OIL WELL - Fully Assessed Reason for Visit: Infusion [...] (ZOMIG) 5 mg nasal spray Use 1 Jber in the nose as needed at onset [...] Status:Closed by MENDOZA DOOLEY on 11/10/22 Normal [facility] CNOVon 10-12-2022 CNOV Office Visit (NHMNS2) ---- NICHOLSONCONI Pradeep ([id number]) 1995 F Date Time Provider Department 10/12/22 10:15 AM SUZAN DRIVER [facility] During your visit today, we recorded the following information about you: Pulse Blood pressure Weight Height 91/minute 133/63 108.8 kg 1.549 m Suzan Driver APRN.CEMENTER OIL WELL 10/12/2022 11:03 AM Addendum AFTER VISIT CARE [...] maximize the effectiveness of your pain relief. https://.[email or web address]/health/ treatments/8312-bot gabjgs-uytve-bkeygx ions Download the Chronic Migraine Anatomy Andrzej (by [employer]icianPortal) to learn more about botox. -HYDRATION Hydration [...] see if you qualify for reimbursement. https://www.botoxsa Myla.DiObex/ Return in 3 months for your next [...] machinery while taking this medication. Suzan Driver APRN.CEMENTER OIL WELL 10/12/2022 11:04 AM Signed New Onabotulinum Toxin [...] PHQ-9 06/24/2022 (more content not included)... Normal [facility] Veronica 09-29-2022 CNPN Telephone (MNOPRX) ---- CONI NICHOLSON ([id number]) 1995 F Date Time Provider Department 09/29/22 ANGELY COTTONOPRX During your visit today, we recorded the following information about you: Angely Cotton RN 09/29/2022 11:55 AM Signed [facility] received prescription(s) for Zomig 5MG nasal spray . Benefits investigation was conducted, indicating that a prior authorization is required. PA was initiated and pending review through CoverMyMeds.[email or web address]. All pertinent clinical information was submitted to insurance. CMM Chong: [id number] Ordering Provider: Logan Barth APRN.CNP Murtaugh, Alisha, RN [facility] P: , F: Angely Cotton RN 10/07/2022 3:17 PM Signed Ambulatory Pharmacy Prior Authorization Note Provider Intervention Required?: No- Pharmacy completed on your behalf. Rx Plan: Medicaid MCO ([facility]) Drug: Zomig 5MG nasal spray Cover My Meds Chong: [id number] Determination: Approved Prior Authorization/Case #: n/a Prior [...] refills. Prescriptions will now be processed through [facility] for determination of next steps. For questions relating to this submission, please contact [facility] at [phone] Allergies As of Date: 09/29/2022 Noted Allergy [...] Date Reviewed: 09/12/2022 Reviewed by: Logan Barth APRN.FADY - Fully Assessed Reason for Visit: Insurance Authorization [[id number]] Cmt: Zomig 5MG nasal spray Prescriptions as [...] (ZOMIG) 5 mg nasal spray Use 1 Jber in the nose as needed at onset [...] Encounter Status:Closed by ANGELY COTTON on 10/07/22 [facility] 09-13-2022 [facility] Telephone (NHMNS2) ---- CONI NICHOLSON ([id number]) 1995 F Date Time Provider Department 09/13/22 LOGAN BARTH [facility] During your visit today, we recorded the following information about you: Enedina Tsai, RN 09/13/2022 1:31 PM Signed Botox referral sent to pharmacy. Enedina Tsai RN Jia Moymila 09/14/2022 2:43 PM Signed Patient has been [...] Date Reviewed: 09/12/2022 Reviewed by: Logan Barth APRN.CEMENTER OIL WELL - Fully Assessed Reason for Visit: Referral [...] (ZOMIG) 5 mg nasal spray Use 1 Jber in the nose as needed. SPRAY IN [...] Encounter Status:Closed by ENEDINA TSAI on 09/13/22 [facility] CNCOon 09-08-2022 CNCO Letter Text [facility] CNPNon 07-05-2022 CNPN Telephone (MNOPRX) ---- NICHOLSONCONI ARNETT ([id number]) 1995 F Date Time Provider Department 07/05/22 ANGELY COTTON [facility] During your visit today, we recorded the following information about you: Angely Cotton RN 07/05/2022 1:18 PM Signed [facility] received prescription(s) for Emgality 120MG/ML auto-injectors (migraine) . Benefits investigation was conducted, indicating that a prior authorization is required. PA was initiated and pending review through [employer]. All pertinent clinical information was submitted to insurance. CMM Chong: [id number] Ordering Provider: Logan Barth APRN.CEMENTER OIL WELL Angely Cotton RN [facility] P: , F: Angely Cotton RN 07/11/2022 12:55 PM Signed Ambulatory Pharmacy Prior Authorization Note Provider Intervention Required?: No- Pharmacy completed on your behalf. Rx Plan: Medicaid MCO ([facility]) Drug: Emgality 120MG/ML auto-injectors (migraine) Cover My Meds Chong: [id number] Determination: Denied PA Denied because: Step therapy requirement Prior Authorization/Case #: n/a Prior Authorization Expiration: n/a Time to PA Submission in CMM: 15 min Time to PA Determination in CMM: 1 day Additional Information: Full letter scanned into chart for reference, please review letter for full details. No further action by [facility] for now and existing order to be profiled. Angely Cotton RN [facility] P: , F: For questions relating to this submission, please contact [facility] at [phone] Logan Barth APRN.CNP 07/20/2022 12:44 PM Signed She will have follow up visit after infusions, will discuss alternative treatment options at visit. GABBI Johnston [facility] Sylvia 08/29/2022 12:12 PM Signed Patient saw Dr. Wharton 08/08/2022, are we able to use these notes to appeal? Tamiko Riggs RN 08/30/2022 11:[address] Wharton' notes have no information or info needed for an appeal so this cannot be used. Tamiko Riggs RN [facility] 08/30/2022 2:45 PM Signed I did [...] NEW RX TO PHARMACY FOR PROCESSING. Logan aBrth APRN.CNP 09/27/2022 11:34 AM Signed The following [...] Authorizing Provider: LOGAN BARTH APRN.CNP Green, Koli, APRN.[facility] 09/27/2022 11:37 AM Signed Addended by: LOGAN [...] Date Reviewed: 06/24/2022 Reviewed by: Logan Barth APRN.CEMENTER OIL WELL - Fully Assessed Reason for Visit: Insurance Authorization [[id number]] Cmt: Emgality 120MG/ML auto-injectors (migraine) Order(s):Order #: [id number] Order #: [id number] Prescriptions as of 09/27/2022 - galcanezumab-gnlm (EMGALITY [...] - prometh (more content not included)... Normal [facility] 07-04-2022 FADYN Telephone (MNOPRX) ---- CONI NICHOLSON ([id number]) 1995 F Date Time Provider Department 07/04/22 TAB LOGAN MNOPRX During your visit today, we recorded the following information about you: Shirlene Leon 07/04/2022 4:01 PM Signed Ambulatory Pharmacy Prior Authorization Note Provider Intervention Required?: Yes- [place] Medicaid (PCN: [id number]) requires prior authorization to be submitted by the provider. Prior authorization forms required for submission can be found at: [email or web address] nt/DocumentLibrary/ Forms Drug: EMGALITY PEN 120 mg/mL pen Additional Information: n/a URGENT! Please select Urgent when requesting prior authorization using either [employer] or [facility] sites. This should result in a 24 hour turnaround from [facility][note 3]. Please send electronic fax using [employer] or [employer] or manually fax completed paperwork to [phone] with ATTN: PA Help Desk. Any questions, please contact us at [facility] [phone] Enedina Tsai RN 07/27/2022 8:32 AM Addendum Submitted PA via covermyBeth[facility]s. Margaret Nicholson (Chong: [id number]) Emgality 120MG/ML auto-injectors (migraine) Form: [place] Managed Medicaid [facility] Prior Authorization Form Your PA [...] Date Reviewed: 06/24/2022 Reviewed by: Logan Barth APRN.CEMENTER OIL WELL - Fully Assessed Prescriptions as of 02/28/2023 [...] (ZOMIG) 5 mg nasal spray Use 1 Jber in the nose as needed at onset [...] Encounter Status:Closed by SHIRLENE LEON on 02/28/23 [facility]ac 06-27-2022 BASHIR Telephone (NIQ) ---- MARGARET [id number]) 1995 F Date Time Provider Department 06/27/22 LOGAN BARTH During your visit today, we recorded the following information about you: Mendoza Dooley 06/27/2022 3:00 PM Signed Spoke to patient about scheduling infusions. Patient would like to callback once she can figure out transportation. Logan Barth APRN.CNP P Headache Infusion Scheduling Pool Please sched for infusions - therapy plan placed. Logan Barth APRN.CNP Mendoza Soumya 06/29/2022 11:55 AM Signed Patient is scheduled [...] (ZOMIG) 5 mg nasal spray Use 1 Jber in the nose as needed. SPRAY IN [...] by MENDOZA DOOLEY on 06/27/22 Normal [facility] BLOOD GASES BTYon 06-20-2022 02 MODE ROOM AIR Normal [facility] Comment on above: Performed By: #### B MP #### [facility] [address] [place] [address] Dr. Ibis Jimenez ALLENS TEST Positive [facility] Comment on above: Performed By: #### B MP #### [facility] [address] [place] [address] Dr. Ibis Jimenez Base excess Calc (Bld) [Moles/Vol] -1.6000 mmol/L Normal -2.0-2.0 [facility] Comment on above: Performed By: #### B MP #### [facility] [address] [place] [address] Dr. Ibis Jimenez BIPAP PRESSURE [facility] Comment on above: Performed By: #### B MP #### [facility] [address] [place] [address] Dr. Ibis Jimenez CPAP [facility] Comment on above: Performed By: #### B MP #### [facility] [address] [place] [address] Dr. Ibis Jimenez FIO2 [facility] Comment on above: Performed By: #### B MP #### [facility] [address] [place] [address] Dr. Ibis Jimenez HCO3 (Bld) [Moles/Vol] 23.8 mmol/L Normal 22.0-26.0 [facility] Comment on above: Performed By: #### B MP #### [facility] [address] [place] [address] Dr. [facility] Comment on above: Performed By: #### B MP #### [facility] [address] [address] [address] Ibis Jimenez MINUTE VOLUME Normal [facility] Comment on above: Performed By: #### B MP #### [facility] [address] [place] [address] Dr. Ibis Jimenez Oxygen (Bld) [Partial pressure] 75.5 mm[Hg] Critically low 80.0-100.0 [facility] Comment on above: Performed By: #### B MP #### [facility] [address] [place] [address] Dr. Ibis Jimenez Oxygen saturation in Blood 95.8 % Normal 95.0-100.0 [facility] Comment on above: Performed By: #### B MP #### [facility] [address] [place] [address] Dr. Ibis Jimenez PCO2 41.8 mmHg Normal 35.0-45.0 [facility] Comment on above: Performed By: #### B MP #### [facility] [address] [place] [address] Dr. Ibis Jimenez PEEP [facility] Comment on above: Performed By: #### B MP #### [facility] [address] [place] [address] Dr. Ibis Jimenez pH (Bld) 7.363 [pH] Normal 7.350-7.450 [facility] Comment on above: Performed By: #### B MP #### [facility] [address] [place] [address] Dr. Ibis Jimenez PIP [facility] Comment on above: Performed By: #### B MP #### [facility] [address] [place] [address] Dr. Ibis Jimenez PS [facility] Comment on above: Performed By: #### B MP #### [facility] [address] [place] [address] Dr. Ibis Jimenez PUNCTURE SITE LR [facility] Comment on above: Performed By: #### B MP #### [facility] [address] [place] [address] Dr. Ibis Jimenez [facility] Comment on above: Performed By: #### B MP #### [facility] [address] [place] [address] Dr. Ibis Jimenez [facility] Comment on above: Performed By: #### B MP #### [facility] [address] [place] [address] Dr. Ibis Jimenez [facility] Comment on above: Performed By: #### B MP #### [facility] [address] [place] [address] Dr. Ibis Jimenez CBC AUTO DIFFon 06-20-2022 BASO # 0.0 103/ul Normal 0.0-0.1 [facility] Comment on above: Performed By: #### A CET, SALYC #### [facility] [address] [place] [address] Dr. Ibis Jimenez Basophils/100 WBC (Bld) 0.5 % Normal 0.2-2.0 [facility] Comment on above: Performed By: #### A CET, SALYC #### [facility] [address] [place] [address] Dr. Ibis Jimenez EO # 0.3 103/ul Normal 0.0-0.7 [facility] Comment on above: Performed By: #### A CET, SALYC #### [facility] [address] [place] [address] Dr. Ibis Jimenez Eosinophils/100 WBC (Bld) 4.2 % Normal 0.9-7.0 [facility] Comment on above: Performed By: #### A CET, SALYC #### [facility] [address] [place] [address] Dr. Ibis Jimenez Erythrocyte distribution width (RBC) [Ratio] 13.2 % Normal 11.0-15.0 [facility] Comment on above: Performed By: #### A CET, SALYC #### [facility] [address] [place] [address] Dr. Ibis Jimenez Hematocrit (Bld) [Volume fraction] 36.5 % Normal 36.0-48.0 [facility] Comment on above: Performed By: #### A CET, SALYC #### [facility] [address] [place] [address] Dr. Ibis Jimenez Hemoglobin (Bld) [Mass/Vol] 11.7 g/dL Critically low 12.0-16.0 [facility] Comment on above: Performed By: #### A CET, SALYC #### [facility] [address] [place] [address] Dr. Ibis Jimenez IG # 0.05 10e3/ul Critically high 0.00-0.[address] [facility] Comment on above: Performed By: #### A CET, SALYC #### [facility] [address] [place] [address] Dr. Ibis Jimenez IG % 0.8 % Critically high 0.0-0.5 [facility] Comment on above: Performed By: #### A CET, SALYC #### [facility] [address] [place] [address] Dr. Ibis Jimenez LYMPH # 1.7 103/ul Normal 1.2-3.8 [facility] Comment on above: Performed By: #### A CET, SALYC #### [facility] [address] [place] [address] Dr. Ibis Jimenez Lymphocytes/100 WBC (Bld) 26.9 % Normal 20.5-60.0 [facility] Comment on above: Performed By: #### A CET, SALYC #### [facility] [address] [place] [address] Dr. Ibis Jimenez MANUAL DIFF REQ NO Normal [facility] Comment on above: Performed By: #### A CET, SALYC #### [facility] [address] [place] [address] Dr. Ibis Jimenez MCH (RBC) [Entitic mass] 28.7 pg Normal 26.7-34.0 [facility] Comment on above: Performed By: #### A CET, SALYC #### [facility] [address] [place] [address] Dr. Ibis Jimenez MCHC (RBC) [Mass/Vol] 32.1 g/dL Normal 29.9-35.2 [facility] Comment on above: Performed By: #### A CET, SALYC #### [facility] [address] [place] [address] Dr. Ibis Jimenez MCV (RBC) [Entitic vol] 89.7 fL Normal 81.0-99.0 [facility] Comment on above: Performed By: #### A CET, SALYC #### [facility] [address] [place] [address] Dr. Ibis Jimenez MONO # 0.6 103/ul Normal 0.3-0.8 [facility] Comment on above: Performed By: #### A CET, SALYC #### [facility] [address] [place] [address] Dr. Ibis Jimenez Monocytes/100 WBC (Bld) 8.9 % Normal 1.7-12.0 [facility] Comment on above: Performed By: #### A CET, SALYC #### [facility] [address] [place] [address] Dr. Ibis Jimenez NEUT # 3.8 103/ul Normal 1.4-6.5 [facility] Comment on above: Performed By: #### A CET, SALYC #### [facility] [address] [place] [address] Dr. Ibis Jimenez Neutrophils/100 WBC (Bld) 58.7 % Normal 43.0-75.0 [facility] Comment on above: Performed By: #### A CET, SALYC #### [facility] [address] [place] [address] Dr. Ibis Jimenez Platelet mean volume (Bld) [Entitic vol] 9.3 fL Critically low 9.5-13.5 [facility] Comment on above: Performed By: #### A CET, SALYC #### [facility] [address] [place] [address] Dr. Ibis Jimenez PLT 188 103/ul Normal 150-450 [facility] Comment on above: Performed By: #### A CET, SALYC #### [facility] [address] [address] [address] Ibis Jimenez RBC 4.07 106/ul Critically low 4.20-5.40 [facility] Comment on above: Performed By: #### A CET, SALYC #### [facility] [address] [address] [address] Ibis Jimenez WBC 6.4 103/ul Normal 4.0-11.0 [facility] Comment on above: Performed By: #### A CET, SALYC #### [facility] [address] [address] [address] Ibis Jimenez DRUG SCREEN RAPID (URINE)on 06-20-2022 AMP Negative Normal NEGATIVE [facility] Comment on above: Performed By: #### B MP #### [facility] [address] [place] [address] Dr. Ibis Jimenez BAR Positive Abnormal NEGATIVE [facility] Comment on above: Performed By: #### B MP #### [facility] [address] [place] [address] Dr. Ibis Jimenez BUP Negative Normal NEGATIVE [facility] Comment on above: Performed By: #### B MP #### [facility] [address] [place] [address] Dr. Ibis Jimenez BZO Positive Abnormal NEGATIVE [facility] Comment on above: Performed By: #### B MP #### [facility] [address] [place] [address] Dr. Ibis Jimenez SEMAJ Negative Normal NEGATIVE [facility] Comment on above: Performed By: #### B MP #### [facility] [address] [place] [address] Dr. Ibis Jimenez CUT-OFFS SEE BELOW Normal [facility] Comment on above: Result Comment: [...] ng/mL Performed By: #### B MP #### [facility] [address] [place] [address] Dr. Ibis Jimenez DRUG CUT HEADER DRUG CLASS TEST SYSTEM CUT-OFF CONCENTRATIONS ARE FOLLOWS: Normal [facility] Comment on above: Performed By: #### B MP #### [facility] [address] [place] [address] Dr. Ibis Jimenez mAMP Negative Normal NEGATIVE [facility] Comment on above: Performed By: #### B MP #### [facility] [address] [place] [address] Dr. Ibis Jimenez MTD Negative Normal NEGATIVE [facility] Comment on above: Performed By: #### B MP #### [facility] [address] [place] [address] Dr. Ibis Jimenez OPI Negative Normal NEGATIVE [facility] Comment on above: Performed By: #### B MP #### [facility] [address] [place] [address] Dr. Ibis Jimenez OXY Negative Normal NEGATIVE [facility] Comment on above: Performed By: #### B MP #### [facility] [address] [place] [address] Dr. Ibis Jimenez PCP Negative Normal NEGATIVE [facility] Comment on above: Performed By: #### B MP #### [facility] [address] [place] [address] Dr. Ibis Jimenez PPX Negative Normal NEGATIVE [facility] Comment on above: Performed By: #### B MP #### [facility] [address] [place] [address] Dr. Ibis Jimenez TCA Positive Abnormal NEGATIVE [facility] Comment on above: Performed By: #### B MP #### [facility] [address] [place] [address] Dr. Ibis Jimenez THC Positive Abnormal NEGATIVE [facility] Comment on above: Performed By: #### B MP #### [facility] [address] [place] [address] Dr. Ibis Jimenez ER URINE PROFILEon 3 Bilirubin Ql (U) Negative Normal NEGATIVE [facility] Comment on above: Performed By: #### A CET, SALYC #### [facility] [address] [place] [address] Dr. Ibis Jimenez Clarity (U) CLEAR Normal CLEAR [facility] Comment on above: Performed By: #### A CET, SALYC #### [facility] [address] [place] [address] Dr. Ibis Jimenez Color (U) YELLOW Normal YELLOW [facility] Comment on above: Performed By: #### A CET, SALYC #### [facility] [address] [place] [address] Dr. Ibis Garcia micrscopic examination will be performed if indicated. Normal [facility] Comment on above: Performed By: #### A CET, SALYC #### [facility] [address] [place] [address] Dr. Ibis Jimenez Glucose Ql (U) Negative Normal NEGATIVE [facility] Comment on above: Performed By: #### A CET, SALYC #### [facility] [address] [place] [address] Dr. Ibis Jimenez Hemoglobin Ql (U) Negative Normal NEGATIVE [facility] Comment on above: Performed By: #### A CET, SALYC #### [facility] [address] [place] [address] Dr. Ibis Jimenez Ketones Ql (U) Negative Normal NEGATIVE [facility] Comment on above: Performed By: #### A CET, SALYC #### [facility] [address] [place] [address] Dr. Ibis Jimenez LEUKOCYTES Negative Normal NEGATIVE [facility] Comment on above: Performed By: #### A CET, SALYC #### [facility] [address] [place] [address] Dr. Ibis Jimenez Nitrite Ql (U) Negative Normal NEGATIVE [facility] Comment on above: Performed By: #### A CET, SALYC #### [facility] [address] [address] [address] Ibis Jimenez pH (U) 5.0 [pH] Normal 5-9 [facility] Comment on above: Performed By: #### A CET, SALYC #### [facility] [address] [place] [address] Dr. Ibis Jimenez SPEC GRAVITY >=1.030 Abnormal 1.005-<=1.02 5 [facility] Comment on above: Performed By: #### A CET, SALYC #### [facility] [address] [place] [address] Dr. Ibis Jimenez UA PROTEIN Negative Normal NEGATIVE/ TRACE [facility] Comment on above: Performed By: #### A CET, SALYC #### [facility] [address] [place] [address] Dr. Ibis Jimenez UR MICRO IND NOT INDICATED Normal [facility] Comment on above: Performed By: #### A CET, SALYC #### [facility] [address] [place] [address] Dr. Ibis Jimenez Urobilinogen Qn (U) 0.2 {Dinorah'U}/dL Normal 0.2 - 1. 0 [facility] Comment on above: Performed By: #### A CET, SALYC #### [facility] [address] [place] [address] Dr. Ibis Jimenez PROF CHEM 8 (BAS METB)on Anion gap [Moles/Vol] 13.1 mmol/L Normal [facility] Comment on above: Performed By: #### M DAVID #### [facility] [address] [place] [address] Dr. Ibis Jimenez Calcium [Mass/Vol] 8.3 mg/dL Critically low 8.5-10.1 [facility] Comment on above: Performed By: #### M DAVID #### [facility] [address] [place] [address] Dr. Ibis Jimenez Chloride [Moles/Vol] 109 mmol/L Critically high 98-107 [facility] Comment on above: Performed By: #### M DAVID #### [facility] [address] [address] [address] Ibis Jimenez CO2 [Moles/Vol] 25.7 mmol/L Normal 21.0-32.0 [facility] Comment on above: Performed By: #### M DAVID #### [facility] [address] [address] [address] Ibis Jimenez Creatinine [Mass/Vol] 0.82 mg/dL Normal 0.55-1.02 [facility] Comment on above: Performed By: #### M DAVID #### [facility] [address] [address] [address] Ibis Jimenez EGFR-AF [place]AST [place] >60 Normal >=60 [facility] Comment on above: Performed By: #### M DAVID #### [facility] [address] [address] [address] Ibis Jimenez EGFR-NON AF [place] >60 Normal >=60 [facility] Comment on above: Performed By: #### M DAVID #### [facility] [address] [address] [address] Ibis Jimenez Glucose [Mass/Vol] 95 mg/dL Normal 74-106 [facility] Comment on above: Performed By: #### M DAVID #### [facility] [address] [address] [address] Ibis Jimenez Potassium [Moles/Vol] 3.8 mmol/L Normal 3.5-5.1 [facility] Comment on above: Performed By: #### M DAVID #### [facility] [address] [address] [address] Ibis Jimenez Sodium [Moles/Vol] 144 mmol/L Normal 136-145 [facility] Comment on above: Performed By: #### M DAVID #### [facility] [address] [address] [address] Ibis Jimenez Urea nitrogen [Mass/Vol] 16.0 mg/dL Normal 7.0-18.0 [facility] Comment on above: Performed By: #### M DAVID #### [facility] [address] [place] [address] Dr. Ibis Jimenez Urea nitrogen/Creatinine [Mass ratio] 19.5 mg/mg Normal [facility] Comment on above: Performed By: #### M DAVID #### [facility] [address] [place] [address] Dr. Ibis Jimenez ACETAMINOPHENon 06-19-2022 Acetaminophen [Mass/Vol] ug/mL Critically low 10.0-30.0 [facility] Comment on above: Performed By: #### A CET, SALYC #### [facility] [address] [place] [address] Dr. Ibis Jimenez DRUG SCREEN RAPID (URINE)on 06-19-2022 AMP Negative Normal NEGATIVE [facility] Comment on above: Performed By: #### M DAVID #### [facility] [address] [place] [address] Dr. Ibis Jimenez BAR Positive Abnormal NEGATIVE [facility] Comment on above: Performed By: #### M DAVID #### [facility] [address] [place] [address] Dr. Ibis Jimenez BUP Negative Normal NEGATIVE [facility] Comment on above: Performed By: #### M DAVID #### [facility] [address] [place] [address] Dr. Ibis Jimenez BZO Positive Abnormal NEGATIVE [facility] Comment on above: Performed By: #### M DAVID #### [facility] [address] [place] [address] Dr. Ibis Jimenez SEMAJ Negative Normal NEGATIVE [facility] Comment on above: Performed By: #### M DAVID #### [facility] [address] [place] [address] Dr. Ibis Jimenez CUT-OFFS SEE BELOW Normal [facility] Comment on above: Result Comment: [...] ng/mL Performed By: #### M DAVID #### [facility] [address] [place] [address] Dr. Ibis Jimenez DRUG CUT HEADER DRUG CLASS TEST SYSTEM CUT-OFF CONCENTRATIONS ARE FOLLOWS: Normal [facility] Comment on above: Performed By: #### M DAVID #### [facility] [address] [place] [address] Dr. Ibis Jimenez mAMP Negative Normal NEGATIVE [facility] Comment on above: Performed By: #### M DAVID #### [facility] [address] [place] [address] Dr. Ibis Jimenez MTD Negative Normal NEGATIVE [facility] Comment on above: Performed By: #### M DAVID #### [facility] [address] [place] [address] Dr. Ibis Jimenez OPI Positive Abnormal NEGATIVE [facility] Comment on above: Performed By: #### M DAVID #### [facility] [address] [place] [address] Dr. Ibis Jimenez OXY Negative Normal NEGATIVE [facility] Comment on above: Performed By: #### M DAVID #### [facility] [address] [place] [address] Dr. Ibis Jimenez PCP Negative Normal NEGATIVE [facility] Comment on above: Performed By: #### M DAVID #### [facility] [address] [place] [address] Dr. Ibis Jimenez PPX Negative Normal NEGATIVE [facility] Comment on above: Performed By: #### M DAVID #### [facility] [address] [place] [address] Dr. Ibis Jimenez TCA Negative Normal NEGATIVE [facility] Comment on above: Performed By: #### M DAVID #### [facility] [address] [address] [address] Ibis Jimenez THC Positive Abnormal NEGATIVE [facility] Comment on above: Performed By: #### M DAVID #### [facility] [address] [place] [address] Dr. Ibis MELÉNDEZ URINE PROFILEon 3 Bilirubin Ql (U) Negative Normal NEGATIVE [facility] Comment on above: Performed By: #### M DAVID #### [facility] [address] [place] [address] Dr. Ibis Jimenez Clarity (U) CLEAR Normal CLEAR [facility] Comment on above: Performed By: #### M DAVID #### [facility] [address] [place] [address] Dr. Ibis Jimenez Color (U) YELLOW Normal YELLOW [facility] Comment on above: Performed By: #### M DAVID #### [facility] [address] [place] [address] Dr. Ibis RODRIGUEZ A micrscopic examination will be performed if indicated. Normal [facility] Comment on above: Performed By: #### M DAVID #### [facility] [address] [place] [address] Dr. Ibis Jimenez Glucose Ql (U) Negative Normal NEGATIVE [facility] Comment on above: Performed By: #### M DAVID #### [facility] [address] [place] [address] Dr. Ibis Jimenez Hemoglobin Ql (U) TRACE-INTACT Abnormal NEGATIVE [facility] Comment on above: Performed By: #### M DAVID #### [facility] [address] [place] [address] Dr. Ibis Jimenez Ketones Ql (U) Negative Normal NEGATIVE [facility] Comment on above: Performed By: #### M DAVID #### [facility] [address] [place] [address] Dr. Ibis Jimenez LEUKOCYTES Negative Normal NEGATIVE [facility] Comment on above: Performed By: #### M DAVID #### [facility] [address] [place] [address] Dr. Ibis Jimenez Nitrite Ql (U) Negative Normal NEGATIVE [facility] Comment on above: Performed By: #### M DAVID #### [facility] [address] [address] [address] Ibis Jimenez pH (U) 6.0 [pH] Normal 5-9 [facility] Comment on above: Performed By: #### M DAVID #### [facility] [address] [address] [address] Ibis Jimenez Protein (U) [Mass/Vol] 30 mg/dL Abnormal NEGAT ADALGISA/ TRACE [facility] Comment on above: Performed By: #### M DAVID #### [facility] [address] [address] [address] Ibis Jimenez SPEC GRAVITY 1.025 Normal 1.005-<=1.02 5 [facility] Comment on above: Performed By: #### M DAVID #### [facility] [address] [place] [address] Dr. Ibis Jimenez UR MICRO IND INDICATED Normal [facility] Comment on above: Performed By: #### M DAVID #### [facility] [address] [address] [address] Ibis Jimenez Urobilinogen Qn (U) 0.2 {Dinorah'U}/dL Normal 0.2 - 1. 0 [facility] Comment on above: Performed By: #### M DAVID #### [facility] [address] [place] [address] Dr. Ibis Jimenez ETHANOL (BLD ALC)on 06-20-19 ALC NOTE NOTE: 80 mg/dl is the legal limit for a blood alcohol level Normal [facility] Comment on above: Performed By: #### A MM #### [facility] [address] [place] [address] Dr. Ibis Jimenez Ethanol [Mass/Vol] mg/dL Normal [facility] Comment on above: Performed By: #### A MM #### [facility] [address] [place] [address] Dr. Ibis Jimenez POINT OF CARE GLUCOSEon 05-23 Glucose [Mass/Vol] 88 mg/dL Normal 74-106 [facility] Comment on above: Performed By: #### C VDTBH #### [facility] [address] [address] [address] Ibis Jimenez URon 06-19-2022 , QUAL Negative Normal NEGATIVE [facility] Comment on above: Performed By: #### M DAVID #### [facility] [address] [address] [address] Ibis Jimenez PROF CHEM 8 (BAS METB)on Anion gap [Moles/Vol] 12.6 mmol/L Normal [facility] Comment on above: Performed By: #### A MM #### [facility] [address] [place] [address] Dr. Ibis Jimenez Calcium [Mass/Vol] 8.4 mg/dL Critically low 8.5-10.1 [facility] Comment on above: Performed By: #### A MM #### [facility] [address] [place] [address] Dr. Ibis Jimenez Chloride [Moles/Vol] 107 mmol/L Normal 98-107 [facility] Comment on above: Performed By: #### A MM #### [facility] [address] [place] [address] Dr. Ibis Jimenez CO2 [Moles/Vol] 22.5 mmol/L Normal 21.0-32.0 [facility] Comment on above: Performed By: #### A MM #### [facility] [address] [place] [address] Dr. Ibis Jimenez Creatinine [Mass/Vol] 0.82 mg/dL Normal 0.55-1.02 [facility] Comment on above: Performed By: #### A MM #### [facility] [address] [place] [address] Dr. Ibis Jimenez EGFR-AF EAST TIMORESE >60 Normal >=60 [facility] Comment on above: Performed By: #### A MM #### [facility] [address] [place] [address] Dr. Ibis Jimenez EGFR-NON AF EAST TIMORESE >60 Normal >=60 [facility] Comment on above: Performed By: #### A MM #### [facility] [address] [address] [address] Ibis Jimenez Glucose [Mass/Vol] 87 mg/dL Normal 74-106 [facility] Comment on above: Performed By: #### A MM #### [facility] [address] [address] [address] Ibis Jimenez Potassium [Moles/Vol] 4.1 mmol/L Normal 3.5-5.1 [facility] Comment on above: Performed By: #### A MM #### [facility] [address] [address] [address] Ibis Jimenez Sodium [Moles/Vol] 138 mmol/L Normal 136-145 [facility] Comment on above: Performed By: #### A MM #### [facility] [address] [place] [address] Dr. Ibis Jimenez Urea nitrogen [Mass/Vol] 22.0 mg/dL Critically high 7.0-18.0 [facility] Comment on above: Performed By: #### A MM #### [facility] [address] [place] [address] Dr. Ibis Jimenez Urea nitrogen/Creatinine [Mass ratio] 26.8 mg/mg Normal [facility] Comment on above: Performed By: #### A MM #### [facility] [address] [place] [address] Dr. Ibis Jimenez SALICYLATEon 06-19-2022 SALICYLATE <2.8 Normal <=19.9 [facility] Comment on above: Performed By: #### A CET, SALYC #### [facility] [address] [address] [address] Ibis Jimenez URINE MICROSCOPIC ONLYon BACTERIA NONE SEEN Normal NONE SEEN [facility] Comment on above: Performed By: #### M DAVID #### [facility] [address] [address] [address] Ibis Jimenez Bacteria identified Cx Nom (U) NOT INDICATED Normal [facility] Comment on above: Performed By: #### M DAVID #### [facility] [address] [place] [address] Dr. Ibis Jimenez CAST SEEN Abnormal NONE SEEN [facility] Comment on above: Performed By: #### M DAVID #### [facility] [address] [place] [address] Dr. Ibis Jimenez Crystals LM Nom (Urine sed) NONE SEEN Normal NONE SEEN [facility] Comment on above: Performed By: #### M DAVID #### [facility] [address] [place] [address] Dr. Ibis Jimenez Epithelial cells LM Ql (Urine sed) MODERATE Abnormal NONE SEEN /RARE [facility] Comment on above: Performed By: #### M DAVID #### [facility] [address] [place] [address] Dr. Ibis Jimenez HYALINE CAST FEW Normal [facility] Comment on above: Performed By: #### M DAVID #### [facility] [address] [place] [address] Dr. Ibis Jimenez MUCOUS NONE SEEN Normal NONE SEEN [facility] Comment on above: Performed By: #### M DAVID #### [facility] [address] [place] [address] Dr. Ibis Jimenez RBC 2-5 Abnormal 0-2 [facility] Comment on above: Performed By: #### M DAVID #### [facility] [address] [place] [address] Dr. Ibis Jimenez WBC NONE SEEN Normal NONE SEEN [facility] Comment on above: Performed By: #### M DAVID #### [facility] [address] [place] [address] Dr. Ibis Jimenez CBC AUTO DIFFon 06-11-2022 BASO # 0.0 103/ul Normal 0.0-0.1 [facility] Comment on above: Performed By: #### C VDTBH #### [facility] [address] [place] [address] Dr. Ibis Jimenez Basophils/100 WBC (Bld) 0.3 % Normal 0.2-2.0 [facility] Comment on above: Performed By: #### C VDTBH #### [facility] [address] [address] [address] Ibis Jimenez EO # 0.0 103/ul Normal 0.0-0.7 [facility] Comment on above: Performed By: #### C VDTBH #### [facility] [address] [address] [address] Ibis Jimenez Eosinophils/100 WBC (Bld) 0.1 % Critically low 0.9-7.0 [facility] Comment on above: Performed By: #### C VDTBH #### [facility] [address] [place] [address] Dr. Ibis Jimenez Erythrocyte distribution width (RBC) [Ratio] 13.2 % Normal 11.0-15.0 [facility] Comment on above: Performed By: #### C VDTBH #### [facility] [address] [place] [address] Dr. Ibis Jimenez Hematocrit (Bld) [Volume fraction] 38.5 % Normal 36.0-48.0 [facility] Comment on above: Performed By: #### C VDTBH #### [facility] [address] [place] [address] Dr. Ibis Jimenez Hemoglobin (Bld) [Mass/Vol] 12.4 g/dL Normal 12.0-16.0 [facility] Comment on above: Performed By: #### C VDTBH #### [facility] [address] [place] [address] Dr. Ibis Jimenez IG # 0.20 10e3/ul Critically high 0.00-0.[address] [facility] Comment on above: Performed By: #### C VDTBH #### [facility] [address] [place] [address] Dr. Ibis Jimenez IG % 1.8 % Critically high 0.0-0.5 [facility] Comment on above: Performed By: #### C VDTBH #### [facility] [address] [place] [address] Dr. Ibis Jimenez LYMPH # 0.5 103/ul Critically low 1.2-3.8 [facility] Comment on above: Performed By: #### C VDTBH #### [facility] [address] [place] [address] Dr. Ibis Jimenez Lymphocytes/100 WBC (Bld) 4.6 % Critically low 20.5-60.0 [facility] Comment on above: Performed By: #### C VDTBH #### [facility] [address] [place] [address] Dr. Ibis Jimenez MANUAL DIFF REQ NO Normal [facility] Comment on above: Performed By: #### C VDTBH #### [facility] [address] [place] [address] Dr. Ibis Jimenez MCH (RBC) [Entitic mass] 28.2 pg Normal 26.7-34.0 [facility] Comment on above: Performed By: #### C VDTBH #### [facility] [address] [place] [address] Dr. Ibis Jimenez MCHC (RBC) [Mass/Vol] 32.2 g/dL Normal 29.9-35.2 [facility] Comment on above: Performed By: #### C VDTBH #### [facility] [address] [place] [address] Dr. Ibis Jimenez MCV (RBC) [Entitic vol] 87.5 fL Normal 81.0-99.0 [facility] Comment on above: Performed By: #### C VDTBH #### [facility] [address] [place] [address] Dr. Ibis Jimenez MONO # 0.1 103/ul Critically low 0.3-0.8 [facility] Comment on above: Performed By: #### C VDTBH #### [facility] [address] [place] [address] Dr. Ibis Jimenez Monocytes/100 WBC (Bld) 1.3 % Critically low 1.7-12.0 [facility] Comment on above: Performed By: #### C VDTBH #### [facility] [address] [place] [address] Dr. Ibis Jimenez NEUT # 10.1 103/ul Critically high 1.4-6.5 [facility] Comment on above: Performed By: #### C VDTBH #### [facility] [address] [place] [address] Dr. Ibis Jimenez Neutrophils/100 WBC (Bld) 91.9 % Critically high 43.0-75.0 [facility] Comment on above: Performed By: #### C VDTBH #### [facility] [address] [place] [address] Dr. Ibis Jimenez Platelet mean volume (Bld) [Entitic vol] 9.1 fL Critically low 9.5-13.5 [facility] Comment on above: Performed By: #### C VDTBH #### [facility] [address] [place] [address] Dr. Ibis Jimenez PLT 240 103/ul Normal 150-450 [facility] Comment on above: Performed By: #### C VDTBH #### [facility] [address] [place] [address] Dr. Ibis Jimenez RBC 4.40 106/ul Normal 4.20-5.40 [facility] Comment on above: Performed By: #### C VDTBH #### [facility] [address] [place] [address] Dr. Ibis Jimenez WBC 11.0 103/ul Normal 4.0-11.0 [facility] Comment on above: Performed By: #### C VDTBH #### [facility] [address] [place] [address] Dr. Ibis Jimenez PROF 14(COMP METB)on 023 Albumin [Mass/Vol] 3.3 g/dL Critically low 3.4-5.0 [facility] Comment on above: Performed By: #### B MP #### [facility] [address] [place] [address] Dr. Ibis Jimenez Albumin/Globulin [Mass ratio] 0.9 {ratio} Normal [facility] Comment on above: Performed By: #### B MP #### [facility] [address] [place] [address] Dr. Ibis Jimenez ALP [Catalytic activity/Vol] 63 U/L Normal 46-116 [facility] Comment on above: Performed By: #### B MP #### [facility] [address] [address] [address] Ibis Jimenez ALT [Catalytic activity/Vol] 32 U/L Normal 14-59 [facility] Comment on above: Performed By: #### B MP #### [facility] [address] [address] [address] Ibis Jimenez Anion gap [Moles/Vol] 12.9 mmol/L Normal Th [facility] Comment on above: Performed By: #### B MP #### [facility] [address] [address] [address] Ibis Jimenez AST [Catalytic activity/Vol] 14 U/L Critically low 15-37 [facility] Comment on above: Performed By: #### B MP #### [facility] [address] [address] [address] Ibis Jimenez Bilirubin [Mass/Vol] 0.2 mg/dL Normal 0.2-1.0 [facility] Comment on above: Performed By: #### B MP #### [facility] [address] [place] [address] Dr. Ibis Jimenez Calcium [Mass/Vol] 8.5 mg/dL Normal 8.5-10.1 [facility] Comment on above: Performed By: #### B MP #### [facility] [address] [address] [address] Ibis Jimenez Chloride [Moles/Vol] 106 mmol/L Normal 98-107 [facility] Comment on above: Performed By: #### B MP #### [facility] [address] [address] [address] Ibis Jimenez CO2 [Moles/Vol] 26.6 mmol/L Normal 21.0-32.0 [facility] Comment on above: Performed By: #### B MP #### [facility] [address] [address] [address] Ibis Jimenez Creatinine [Mass/Vol] 0.89 mg/dL Normal 0.55-1.02 [facility] Comment on above: Performed By: #### B MP #### [facility] [address] [address] [address] Ibis Jimenez EGFR-AF EAST [place] >60 Normal >=60 [facility] Comment on above: Performed By: #### B MP #### [facility] [address] [address] [address] Ibis Jimenez EGFR-NON AF [place] >60 Normal >=60 [facility] Comment on above: Performed By: #### B MP #### [facility] [address] [address] [address] Ibis Jimenez Globulin (S) [Mass/Vol] 3.6 g/dL Normal [facility] Comment on above: Performed By: #### B MP #### [facility] [address] [address] [address] Ibis Jimenez Glucose [Mass/Vol] 134 mg/dL Critically high 74-106 [facility] Comment on above: Performed By: #### B MP #### [facility] [address] [address] [address] Ibis Jimenez Potassium [Moles/Vol] 4.5 mmol/L Normal 3.5-5.1 [facility] Comment on above: Performed By: #### B MP #### [facility] [address] [address] [address] Ibis Jimenez Protein [Mass/Vol] 6.9 g/dL Normal 6.4-8.2 [facility] Comment on above: Performed By: #### B MP #### [facility] [address] [address] [address] Ibis Jimenez Sodium [Moles/Vol] 141 mmol/L Normal 136-145 [facility] Comment on above: Performed By: #### B MP #### [facility] [address] [address] [address] Ibis Jimenez Urea nitrogen [Mass/Vol] 15.0 mg/dL Normal 7.0-18.0 [facility] Comment on above: Performed By: #### B MP #### [facility] [address] [place], [place] [address] Dr. Ibis Jimenez Urea nitrogen/Creatinine [Mass ratio] 16.9 mg/mg Normal [facility] Comment on above: Performed By: #### B MP #### [facility] [address] [place], [place] [address] HEAD WO CONon [...] NICHOLAS MARCUS Date: 2022-05-23 19:25 Normal [facility] CT LSPINE WO CONon [address] [facility] CT CERVICAL SPINE WITHOUT CONTRAST. CT LUMBAR [...] by: SINDY KING Date: 2022-05-23 19:41 Normal [facility] CT HEAD WO CONon 04-01-2022 CT [...] ROBIN IRBY Date: 2022-03-31 22:40 Normal [facility] SARS-CoV-2 (COVID-19) RNA SAURABH+probe Ql (Unsp spec) Not detected Normal NOT DETECTED [facility] Comment on above: Result Comment: When [...] for this test is supported by the [place] of [employer] and Human Service's declaration that [...] used). Performed By: #### C VDTB #### [facility] [address] [place] [address] Dr. Ibis Jimenez ER URINE PROFILEon 3 Bilirubin Ql (U) Negative Normal NEGATIVE [facility] Comment on above: Performed By: #### A CET, SALYC #### [facility] [address] [place] [address] Dr. Ibis Jimenez Clarity (U) CLEAR Normal CLEAR [facility] Comment on above: Performed By: #### A CET, SALYC #### [facility] [address] [place] [address] Dr. Ibis Jimenez Color (U) YELLOW Normal YELLOW [facility] Comment on above: Performed By: #### A CET, SALYC #### [facility] [address] [place] [address] Dr. Ibis Jimenez ERUAHD A micrscopic examination will be performed if indicated. Normal [facility] Comment on above: Performed By: #### A CET, SALYC #### [facility] [address] [place] [address] Dr. Ibis Jimenez Glucose Ql (U) Negative Normal NEGATIVE [facility] Comment on above: Performed By: #### A CET, SALYC #### [facility] [address] [place] [address] Dr. Ibis Jimenez Hemoglobin Ql (U) SMALL Abnormal NEGATIVE [facility] Comment on above: Performed By: #### A CET, SALYC #### [facility] [address] [place] [address] Dr. Ibis Jimenez Ketones Ql (U) Negative Normal NEGATIVE [facility] Comment on above: Performed By: #### A CET, SALYC #### [facility] [address] [place] [address] Dr. Ibis Jimenez LEUKOCYTES Negative Normal NEGATIVE [facility] Comment on above: Performed By: #### A CET, SALYC #### [facility] [address] [place] [address] Dr. Ibis Jimenez Nitrite Ql (U) Negative Normal NEGATIVE [facility] Comment on above: Performed By: #### A CET, SALYC #### [facility] [address] [place] [address] Dr. Ibis Jimenez pH (U) 5.5 [pH] Normal 5-9 [facility] Comment on above: Performed By: #### A CET, SALYC #### [facility] [address] [place] [address] Dr. Ibis Jimenez SPEC GRAVITY >=1.030 Abnormal 1.005-<=1.02 5 [facility] Comment on above: Performed By: #### A CET, SALYC #### [facility] [address] [place] [address] Dr. Ibis Jimenez UA PROTEIN Negative Normal NEGATIVE/ TRACE [facility] Comment on above: Performed By: #### A CET, SALYC #### [facility] [address] [place] [address] Dr. Ibis Jimenez UR MICRO IND INDICATED Normal [facility] Comment on above: Performed By: #### A CET, SALYC #### [facility] [address] [place] [address] Dr. Ibis Jimenez Urobilinogen Qn (U) 0.2 {Dinorah'U}/dL Normal 0.2 - 1. 0 [facility] Comment on above: Performed By: #### A CET, SALYC #### [facility] [address] [place] [address] Dr. Ibis Jimenez INFLUENZA A AND B AGon 04-01 INFLUANEGH SEE BELOW Normal [facility] Comment on above: Result Comment: Nega tive for Flu A protein angiten. Infection due to Flu A cannot be ruled out. Flu A angiten in the sample may be below the detection limit of the test. Performed By: #### A MM #### [facility] [address] [place] [address] Dr. Ibis Jimenez [facility] SEE BELOW Normal [facility] Comment on above: Result Comment: Nega tive for Flu B protein antigen. Infection due to Flu B cannot be ruled out. Flu B antigen in the sample may be below the detection limit of the test. Performed By: #### A MM #### [facility] [address] [place] [address] Dr. Ibis Jimenez INFLUENZA A AG Negative Normal NEGATIVE SEE COMMENT [facility] Comment on above: Performed By: #### A MM #### [facility] [address] [place] [address] Dr. Ibis Jimenez INFLUENZA B AG Negative Normal NEGATIVE SEE COMMENT [facility] Comment on above: Performed By: #### A MM #### [facility] [address] [place] [address] Dr. Ibis Jimenez LACTATE/LACTIC ACIDon 2022 Lactate [Moles/Vol] 1.9 mmol/L Normal 0.4-1.9 [facility] Comment on above: Performed By: #### L ACT #### [facility] [address] [place] [address] Dr. Ibis Jimenez URINE MICROSCOPIC ONLYon BACTERIA TRACE Abnormal NONE SEEN [facility] Comment on above: Performed By: #### A CET, SALYC #### [facility] [address] [place] [address] Dr. Ibis Jimenez Bacteria identified Cx Nom (U) NOT INDICATED Normal [facility] Comment on above: Performed By: #### A CET, SALYC #### [facility] [address] [place] [address] Dr. Ibis Jimenez CAST NONE SEEN Normal NONE SEEN [facility] Comment on above: Performed By: #### A CET, SALYC #### [facility] [address] [place] [address] Dr. Ibis Jimenez Crystals LM Nom (Urine sed) NONE SEEN Normal NONE SEEN [facility] Comment on above: Performed By: #### A CET, SALYC #### [facility] [address] [place] [address] Dr. Ibis Jimenez Epithelial cells LM Ql (Urine sed) RARE Normal NONE SEEN /RARE [facility] Comment on above: Performed By: #### A CET, SALYC #### [facility] [address] [place] [address] Dr. Ibis Jimenez MUCOUS TRACE Abnormal NONE SEEN [facility] Comment on above: Performed By: #### A CET, SALYC #### [facility] [address] [place] [address] Dr. Ibis Jimenez RBC 0-2 Normal 0-2 [facility] Comment on above: Performed By: #### A CET, SALYC #### [facility] [address] [place] [address] Dr. Ibis Jimenez WBC NONE SEEN Normal NONE SEEN [facility] Comment on above: Performed By: #### A CET, SALYC #### [facility] [address] [place] [address] Dr. Ibis Jimenez AMMONIAon 03-31-2022 Ammonia (P) [Moles/Vol] 31 umol/L Normal 11-32 [facility] Comment on above: Performed By: #### A MM #### [facility] [address] [place] [address] Dr. Ibis Jiemnez CBC AUTO DIFFon 03-31-2022 BASO # 0.0 103/ul Normal 0.0-0.1 [facility] Comment on above: Performed By: #### A MM #### [facility] [address] [place] [address] Dr. Ibis Jimenez Basophils/100 WBC (Bld) 0.4 % Normal 0.2-2.0 [facility] Comment on above: Performed By: #### A MM #### [facility] [address] [place] [address] Dr. Ibis Jimenez EO # 0.5 103/ul Normal 0.0-0.7 [facility] Comment on above: Performed By: #### A MM #### [facility] [address] [place] [address] Dr. Ibis Jimenez Eosinophils/100 WBC (Bld) 6.4 % Normal 0.9-7.0 [facility] Comment on above: Performed By: #### A MM #### [facility] [address] [place] [address] Dr. Ibis Jimenez Erythrocyte distribution width (RBC) [Ratio] 12.8 % Normal 11.0-15.0 [facility] Comment on above: Performed By: #### A MM #### [facility] [address] [place] [address] Dr. Ibis Jimenez Hematocrit (Bld) [Volume fraction] 36.6 % Normal 36.0-48.0 [facility] Comment on above: Performed By: #### A MM #### [facility] [address] [place] [address] Dr. Ibis Jimenez Hemoglobin (Bld) [Mass/Vol] 12.5 g/dL Normal 12.0-16.0 [facility] Comment on above: Performed By: #### A MM #### [facility] [address] [place] [address] Dr. Ibis Jimenez IG # 0.02 10e3/ul Normal 0.00-0.03 [facility] Comment on above: Performed By: #### A MM #### [facility] [address] [place] [address] Dr. Ibis Jimenez IG % 0.3 % Normal 0.0-0.5 [facility] Comment on above: Performed By: #### A MM #### [facility] [address] [place] [address] Dr. Ibis Jimenez LYMPH # 2.0 103/ul Normal 1.2-3.8 [facility] Comment on above: Performed By: #### A MM #### [facility] [address] [place] [address] Dr. Ibis Jimenez Lymphocytes/100 WBC (Bld) 25.0 % Normal 20.5-60.0 [facility] Comment on above: Performed By: #### A MM #### [facility] [address] [place] [address] Dr. Ibis Jimenez MANUAL DIFF REQ NO Normal [facility] Comment on above: Performed By: #### A MM #### [facility] [address] [place] [address] Dr. Ibis Jimenez MCH (RBC) [Entitic mass] 29.5 pg Normal 26.7-34.0 [facility] Comment on above: Performed By: #### A MM #### [facility] [address] [place] [address] Dr. Ibis Jimenez MCHC (RBC) [Mass/Vol] 34.2 g/dL Normal 29.9-35.2 [facility] Comment on above: Performed By: #### A MM #### [facility] [address] [place] [address] Dr. Ibis Jimenez MCV (RBC) [Entitic vol] 86.3 fL Normal 81.0-99.0 [facility] Comment on above: Performed By: #### A MM #### [facility] [address] [place] [address] Dr. Ibis Jimenez MONO # 0.4 103/ul Normal 0.3-0.8 [facility] Comment on above: Performed By: #### A MM #### [facility] [address] [place] [address] Dr. Ibis Jimenez Monocytes/100 WBC (Bld) 5.6 % Normal 1.7-12.0 [facility] Comment on above: Performed By: #### A MM #### [facility] [address] [place] [address] Dr. Ibis Jimenez NEUT # 4.9 103/ul Normal 1.4-6.5 [facility] Comment on above: Performed By: #### A MM #### [facility] [address] [place] [address] Dr. Ibis Jimenez Neutrophils/100 WBC (Bld) 62.3 % Normal 43.0-75.0 [facility] Comment on above: Performed By: #### A MM #### [facility] [address] [place] [address] Dr. Ibis Jimenez Platelet mean volume (Bld) [Entitic vol] 9.5 fL Normal 9.5-13.5 [facility] Comment on above: Performed By: #### A MM #### [facility] [address] [place] [address] Dr. Ibis Jimenez PLT 246 103/ul Normal 150-450 [facility] Comment on above: Performed By: #### A MM #### [facility] [address] [place] [address] Dr. Ibis Jimenez RBC 4.24 106/ul Normal 4.20-5.40 [facility] Comment on above: Performed By: #### A MM #### [facility] [address] [place] [address] Dr. Ibis Jimenez WBC 7.8 103/ul Normal 4.0-11.0 [facility] Comment on above: Performed By: #### A MM #### [facility] [address] [place] [address] Dr. Ibis Jimenez CULTURE BLOODon 03-31-2022 Microscopic examination of blood, culture Culture Observations: NO GROWTH AT 5 DAYS. Normal [facility] Comment on above: Performed By: #### B [id number] #### [facility] [address] [place] [address] Dr. Ibis Jimenez Microscopic examination of blood, culture Culture Observations: NO GROWTH AT 5 DAYS. Normal [facility] Comment on above: Performed By: #### B MP #### [facility] [address] [place] [address] Dr. Ibis Jimenez LACTATE/LACTIC ACIDon 2022 Lactate [Moles/Vol] 2.8 mmol/L Critically high 0.4-1.9 [facility] Comment on above: Performed By: #### C VDTBH #### [facility] [address] [place] [address] Dr. Ibis Jimenez PROF 14(COMP METB)on 023 Albumin [Mass/Vol] 3.4 g/dL Normal 3.4-5.0 [facility] Comment on above: Performed By: #### B MP #### [facility] [address] [place] [address] Dr. Ibis Jimenez Albumin/Globulin [Mass ratio] 1.2 {ratio} Normal [facility] Comment on above: Performed By: #### B MP #### [facility] [address] [address] [address] Ibis Jimenez ALP [Catalytic activity/Vol] 85 U/L Normal 46-116 [facility] Comment on above: Performed By: #### B MP #### [facility] [address] [address] [address] Ibis Jimenez ALT [Catalytic activity/Vol] 18 U/L Normal 14-59 [facility] Comment on above: Performed By: #### B MP #### [facility] [address] [address] [address] Ibis Jimenez Anion gap [Moles/Vol] 13.2 mmol/L Normal [facility] Comment on above: Performed By: #### B MP #### [facility] [address] [place] [address] Dr. Ibis Jimenez AST [Catalytic activity/Vol] 11 U/L Critically low 15-37 [facility] Comment on above: Performed By: #### B MP #### [facility] [address] [place] [address] Dr. Ibis Jimenez Bilirubin [Mass/Vol] 0.2 mg/dL Normal 0.2-1.0 [facility] Comment on above: Performed By: #### B MP #### [facility] [address] [place] [address] Dr. Ibis Jimenez Calcium [Mass/Vol] 8.6 mg/dL Normal 8.5-10.1 [facility] Comment on above: Performed By: #### B MP #### [facility] [address] [address] [address] Ibis Jimenez Chloride [Moles/Vol] 105 mmol/L Normal 98-107 [facility] Comment on above: Performed By: #### B MP #### [facility] [address] [address] [address] Ibis Jimenez CO2 [Moles/Vol] 25.1 mmol/L Normal 21.0-32.0 [facility] Comment on above: Performed By: #### B MP #### [facility] [address] [address] [address] Ibis Jimenez Creatinine [Mass/Vol] 0.80 mg/dL Normal 0.55-1.02 [facility] Comment on above: Performed By: #### B MP #### [facility] [address] [address] [address] Ibis Jimenez EGFR-AF [place]AST [place] >60 Normal >=60 [facility] Comment on above: Performed By: #### B MP #### [facility] [address] [address] [address] Ibis Jimenez EGFR-NON AF [place] >60 Normal >=60 [facility] Comment on above: Performed By: #### B MP #### [facility] [address] [place] [address] Dr. Ibis Jimenez Globulin (S) [Mass/Vol] 2.9 g/dL Normal [facility] Comment on above: Performed By: #### B MP #### [facility] [address] [place] [address] Dr. Ibis Jimenez Glucose [Mass/Vol] 99 mg/dL Normal 74-106 [facility] Comment on above: Performed By: #### B MP #### [facility] [address] [place] [address] Dr. Ibis Jimenez Potassium [Moles/Vol] 3.3 mmol/L Critically low 3.5-5.1 [facility] Comment on above: Performed By: #### B MP #### [facility] [address] [place] [address] Dr. Ibis Jimenez Protein [Mass/Vol] 6.3 g/dL Critically low 6.4-8.2 [facility] Comment on above: Performed By: #### B MP #### [facility] [address] [place] [address] Dr. Ibis Jimenez Sodium [Moles/Vol] 140 mmol/L Normal 136-145 [facility] Comment on above: Performed By: #### B MP #### [facility] [address] [place] [address] Dr. Ibis Jimenez Urea nitrogen [Mass/Vol] 10.0 mg/dL Normal 7.0-18.0 [facility] Comment on above: Performed By: #### B MP #### [facility] [address] [place] [address] Dr. Ibis Jimenez Urea nitrogen/Creatinine [Mass ratio] 12.5 mg/mg Normal [facility] Comment on above: Performed By: #### B MP #### [facility] [address] [place] [address] Dr. Ibis Jimenez CBC AUTO DIFFon 01-14-2022 BASO # 0.0 103/ul Normal 0.0-0.1 [facility] Comment on above: Performed By: #### A MM #### [facility] [address] [place] [address] Dr. Ibis Jimenez Basophils/100 WBC (Bld) 0.3 % Normal 0.2-2.0 [facility] Comment on above: Performed By: #### A MM #### [facility] [address] [place] [address] Dr. Ibis Jimenez EO # 0.2 103/ul Normal 0.0-0.7 [facility] Comment on above: Performed By: #### A MM #### [facility] [address] [place] [address] Dr. Ibis Jimenez Eosinophils/100 WBC (Bld) 2.7 % Normal 0.9-7.0 [facility] Comment on above: Performed By: #### A MM #### [facility] [address] [place] [address] Dr. Ibis Jimenez Erythrocyte distribution width (RBC) [Ratio] 13.2 % Normal 11.0-15.0 [facility] Comment on above: Performed By: #### A MM #### [facility] [address] [place] [address] Dr. Ibis Jimenez Hematocrit (Bld) [Volume fraction] 35.7 % Critically low 36.0-48.0 [facility] Comment on above: Performed By: #### A MM #### [facility] [address] [place] [address] Dr. Ibis Jimenez Hemoglobin (Bld) [Mass/Vol] 12.2 g/dL Normal 12.0-16.0 [facility] Comment on above: Performed By: #### A MM #### [facility] [address] [place] [address] Dr. Ibis Jimenez IG # 0.04 10e3/ul Critically high 0.00-0.[address] [facility] Comment on above: Performed By: #### A MM #### [facility] [address] [place] [address] Dr. Ibis Jimenez IG % 0.5 % Normal 0.0-0.5 [facility] Comment on above: Performed By: #### A MM #### [facility] [address] [place] [address] Dr. Ibis Jimenez LYMPH # 2.1 103/ul Normal 1.2-3.8 [facility] Comment on above: Performed By: #### A MM #### [facility] [address] [place] [address] Dr. Ibis Jimenez Lymphocytes/100 WBC (Bld) 27.3 % Normal 20.5-60.0 [facility] Comment on above: Performed By: #### A MM #### [facility] [address] [place] [address] Dr. Ibis Jimenez MANUAL DIFF REQ NO Normal [facility] Comment on above: Performed By: #### A MM #### [facility] [address] [place] [address] Dr. Ibis Jimenez MCH (RBC) [Entitic mass] 29.0 pg Normal 26.7-34.0 [facility] Comment on above: Performed By: #### A MM #### [facility] [address] [place] [address] Dr. Ibis Jimenez MCHC (RBC) [Mass/Vol] 34.2 g/dL Normal 29.9-35.2 [facility] Comment on above: Performed By: #### A MM #### [facility] [address] [place] [address] Dr. Ibis Jimenez MCV (RBC) [Entitic vol] 84.8 fL Normal 81.0-99.0 [facility] Comment on above: Performed By: #### A MM #### [facility] [address] [place] [address] Dr. Ibis Jimenez MONO # 0.7 103/ul Normal 0.3-0.8 [facility] Comment on above: Performed By: #### A MM #### [facility] [address] [place] [address] Dr. Ibis Jimenez Monocytes/100 WBC (Bld) 8.7 % Normal 1.7-12.0 [facility] Comment on above: Performed By: #### A MM #### [facility] [address] [place] [address] Dr. Ibis Jimenez NEUT # 4.7 103/ul Normal 1.4-6.5 [facility] Comment on above: Performed By: #### A MM #### [facility] [address] [place] [address] Dr. Ibis Jimenez Neutrophils/100 WBC (Bld) 60.5 % Normal 43.0-75.0 [facility] Comment on above: Performed By: #### A MM #### [facility] [address] [place] [address] Dr. Ibis Jimenez Platelet mean volume (Bld) [Entitic vol] 9.6 fL Normal 9.5-13.5 [facility] Comment on above: Performed By: #### A MM #### [facility] [address] [place] [address] Dr. Ibis Jimenez PLT 212 103/ul Normal 150-450 [facility] Comment on above: Performed By: #### A MM #### [facility] [address] [place] [address] Dr. Ibis Jimenez RBC 4.21 106/ul Normal 4.20-5.40 [facility] Comment on above: Performed By: #### A MM #### [facility] [address] [place] [address] Dr. Ibis Jimenez WBC 7.7 103/ul Normal 4.0-11.0 [facility] Comment on above: Performed By: #### A MM #### [facility] [address] [address] [address] ABD/PELV W CONon [...] TONY DAHL Date: 2022-01-14 20:01 Normal [facility] URINE PROFILEon 2 Bilirubin Ql (U) Negative Normal NEGATIVE [facility] Comment on above: Performed By: #### A CET, SALYC #### [facility] [address] [place] [address] Dr. Ibis Jimenez Clarity (U) CLEAR Normal CLEAR [facility] Comment on above: Performed By: #### A CET, SALYC #### [facility] [address] [place] [address] Dr. Ibis Jimenez Color (U) LT. YELLOW Normal YELLOW [facility] Comment on above: Performed By: #### A CET, SALYC #### [facility] [address] [place] [address] Dr. Ibis RODRIGUEZ A micrscopic examination will be performed if indicated. Normal [facility] Comment on above: Performed By: #### A CET, SALYC #### [facility] [address] [place] [address] Dr. Ibis Jimenez Glucose Ql (U) Negative Normal NEGATIVE [facility] Comment on above: Performed By: #### A CET, SALYC #### [facility] [address] [place] [address] Dr. Ibis Jimenez Hemoglobin Ql (U) Negative Normal NEGATIVE [facility] Comment on above: Performed By: #### A CET, SALYC #### [facility] [address] [place] [address] Dr. Ibis Jimenez Ketones Ql (U) Negative Normal NEGATIVE [facility] Comment on above: Performed By: #### A CET, SALYC #### [facility] [address] [place] [address] Dr. Ibis Jimenez LEUKOCYTES TRACE Abnormal NEGATIVE [facility] Comment on above: Performed By: #### A CET, SALYC #### [facility] [address] [place] [address] Dr. Ibis Jimenez Nitrite Ql (U) Negative Normal NEGATIVE [facility] Comment on above: Performed By: #### A CET, SALYC #### [facility] [address] [place] [address] Dr. Ibis Jimenez pH (U) 5.5 [pH] Normal 5-9 [facility] Comment on above: Performed By: #### A CET, SALYC #### [facility] [address] [place] [address] Dr. Ibis Jimenez SPEC GRAVITY 1.025 Normal 1.005-<=1.02 5 [facility] Comment on above: Performed By: #### A CET, SALYC #### [facility] [address] [place] [address] Dr. Ibis Jimenez UA PROTEIN Negative Normal NEGATIVE/ TRACE [facility] Comment on above: Performed By: #### A CET, SALYC #### [facility] [address] [address] [address] Ibis Jimenez UR MICRO IND INDICATED Normal [facility] Comment on above: Performed By: #### A CET, SALYC #### [facility] [address] [place] [address] Dr. Ibis Jimenez Urobilinogen Qn (U) 0.2 {Dinorah'U}/dL Normal 0.2 - 1. 0 [facility] Comment on above: Performed By: #### A CET, SALYC #### [facility] [address] [place] [address] Dr. Ibis Jimenez URon 01-14-2022 , QUAL Negative Normal NEGATIVE [facility] Comment on above: Performed By: #### A CET, SALYC #### [facility] [address] [place] [address] Dr. Ibis Jimenez PROF CHEM 8 (BAS METB)on Anion gap [Moles/Vol] 9.9 mmol/L Normal [facility] Comment on above: Performed By: #### B MP #### [facility] [address] [place] [address] Dr. Ibis Jimenez Calcium [Mass/Vol] 8.6 mg/dL Normal 8.5-10.1 [facility] Comment on above: Performed By: #### B MP #### [facility] [address] [place] [address] Dr. Ibis Jimenez Chloride [Moles/Vol] 105 mmol/L Normal 98-107 [facility] Comment on above: Performed By: #### B MP #### [facility] [address] [address] [address] Ibis Jimenez CO2 [Moles/Vol] 27.5 mmol/L Normal 21.0-32.0 [facility] Comment on above: Performed By: #### B MP #### [facility] [address] [place] [address] Dr. Ibis Jimenez Creatinine [Mass/Vol] 0.70 mg/dL Normal 0.55-1.02 [facility] Comment on above: Performed By: #### B MP #### [facility] [address] [place] [address] Dr. Ibis Jimenez EGFR-AF [place] >60 Normal >=60 [facility] Comment on above: Performed By: #### B MP #### [facility] [address] [address] [address] Ibis Jimenez EGFR-NON AF [place] >60 Normal >=60 [facility] Comment on above: Performed By: #### B MP #### [facility] [address] [address] [address] Ibis Jimenez Glucose [Mass/Vol] 83 mg/dL Normal 74-106 [facility] Comment on above: Performed By: #### B MP #### [facility] [address] [address] [address] Ibis Jimenez Potassium [Moles/Vol] 4.4 mmol/L Normal 3.5-5.1 [facility] Comment on above: Performed By: #### B MP #### [facility] [address] [address] [address] Ibis Jimenez Sodium [Moles/Vol] 138 mmol/L Normal 136-145 [facility] Comment on above: Performed By: #### B MP #### [facility] [address] [place] [address] Dr. Ibis Jimenez Urea nitrogen [Mass/Vol] 13.0 mg/dL Normal 7.0-18.0 [facility] Comment on above: Performed By: #### B MP #### [facility] [address] [address] [address] Ibis Jimenez Urea nitrogen/Creatinine [Mass ratio] 18.6 mg/mg Normal [facility] Comment on above: Performed By: #### B MP #### [facility] [address] [place] [address] Dr. Ibis Jimenez URINE MICROSCOPIC ONLYon BACTERIA NONE SEEN Normal NONE SEEN [facility] Comment on above: Performed By: #### A CET, SALYC #### [facility] [address] [place] [address] Dr. Ibis Jimenez Bacteria identified Cx Nom (U) NOT INDICATED Normal [facility] Comment on above: Performed By: #### A CET, SALYC #### [facility] [address] [place] [address] Dr. Ibis Jimenez CAST NONE SEEN Normal NONE SEEN [facility] Comment on above: Performed By: #### A CET, SALYC #### [facility] [address] [place] [address] Dr. Ibis Jimenez Crystals LM Nom (Urine sed) NONE SEEN Normal NONE SEEN [facility] Comment on above: Performed By: #### A CET, SALYC #### [facility] [address] [place] [address] Dr. Ibis Jimenez Epithelial cells LM Ql (Urine sed) FEW Abnormal NONE SEEN /RARE [facility] Comment on above: Performed By: #### A CET, SALYC #### [facility] [address] [place] [address] Dr. Ibis Jimenez MUCOUS NONE SEEN Normal NONE SEEN [facility] Comment on above: Performed By: #### A CET, SALYC #### [facility] [address] [place] [address] Dr. Ibis Jimenez RBC NONE SEEN Abnormal 0-2 [facility] Comment on above: Performed By: #### A CET, SALYC #### [facility] [address] [place] [address] Dr. Ibis Jimenez WBC NONE SEEN Normal NONE SEEN [facility] Comment on above: Performed By: #### A CET, SALYC #### [facility] [address] [place] [address] Dr. Ibis Jimenez CBC AUTO DIFFon 01-07-2022 BASO # 0.0 103/ul Normal 0.0-0.1 [facility] Comment on above: Performed By: #### A CET, SALYC #### [facility] [address] [place] [address] Dr. Ibis Jimenez Basophils/100 WBC (Bld) 0.2 % Normal 0.2-2.0 [facility] Comment on above: Performed By: #### A CET, SALYC #### [facility] [address] [place] [address] Dr. Ibis Jimenez EO # 0.0 103/ul Normal 0.0-0.7 [facility] Comment on above: Performed By: #### A CET, SALYC #### [facility] [address] [place] [address] Dr. Ibis Jimenez Eosinophils/100 WBC (Bld) 0.4 % Critically low 0.9-7.0 [facility] Comment on above: Performed By: #### A CET, SALYC #### [facility] [address] [place] [address] Dr. Ibis Jimenez Erythrocyte distribution width (RBC) [Ratio] 13.2 % Normal 11.0-15.0 [facility] Comment on above: Performed By: #### A CET, SALYC #### [facility] [address] [place] [address] Dr. Ibis Jimenez Hematocrit (Bld) [Volume fraction] 39.7 % Normal 36.0-48.0 [facility] Comment on above: Performed By: #### A CET, SALYC #### [facility] [address] [place] [address] Dr. bIis Jimenez Hemoglobin (Bld) [Mass/Vol] 13.4 g/dL Normal 12.0-16.0 [facility] Comment on above: Performed By: #### A CET, SALYC #### [facility] [address] [place] [address] Dr. Ibis Jimenez IG # 0.06 10e3/ul Critically high 0.00-0.[address] [facility] Comment on above: Performed By: #### A CET, SALYC #### [facility] [address] [address] [address] Ibis Jimenez IG % 0.5 % Normal 0.0-0.5 [facility] Comment on above: Performed By: #### A CET, SALYC #### [facility] [address] [address] [address] Ibis Jimenez LYMPH # 2.6 103/ul Normal 1.2-3.8 [facility] Comment on above: Performed By: #### A CET, SALYC #### [facility] [address] [place] [address] Dr. Ibis Jimenez Lymphocytes/100 WBC (Bld) 23.8 % Normal 20.5-60.0 [facility] Comment on above: Performed By: #### A CET, SALYC #### [facility] [address] [place] [address] Dr. Ibis Jimenez MANUAL DIFF REQ NO Normal [facility] Comment on above: Performed By: #### A CET, SALYC #### [facility] [address] [place] [address] Dr. Ibis Jimenez MCH (RBC) [Entitic mass] 28.8 pg Normal 26.7-34.0 [facility] Comment on above: Performed By: #### A CET, SALYC #### [facility] [address] [place] [address] Dr. Ibis Jimenez MCHC (RBC) [Mass/Vol] 33.8 g/dL Normal 29.9-35.2 [facility] Comment on above: Performed By: #### A CET, SALYC #### [facility] [address] [place] [address] Dr. Ibis Jimenez MCV (RBC) [Entitic vol] 85.2 fL Normal 81.0-99.0 [facility] Comment on above: Performed By: #### A CET, SALYC #### [facility] [address] [place] [address] Dr. Ibis Jimenez MONO # 0.8 103/ul Normal 0.3-0.8 [facility] Comment on above: Performed By: #### A CET, SALYC #### [facility] [address] [address] [address] bIis Jimenez Monocytes/100 WBC (Bld) 7.7 % Normal 1.7-12.0 [facility] Comment on above: Performed By: #### A CET, SALYC #### [facility] [address] [place] [address] Dr. Ibis Jimenez NEUT # 7.4 103/ul Critically high 1.4-6.5 [facility] Comment on above: Performed By: #### A CET, SALYC #### [facility] [address] [place] [address] Dr. Ibis Jimenez Neutrophils/100 WBC (Bld) 67.4 % Normal 43.0-75.0 [facility] Comment on above: Performed By: #### A CET, SALYC #### [facility] [address] [place] [address] Dr. Ibis Jimenez Platelet mean volume (Bld) [Entitic vol] 9.8 fL Normal 9.5-13.5 [facility] Comment on above: Performed By: #### A CET, SALYC #### [facility] [address] [place] [address] Dr. Ibis Jimenez PLT 261 103/ul Normal 150-450 [facility] Comment on above: Performed By: #### A CET, SALYC #### [facility] [address] [place] [address] Dr. Ibis Jimenez RBC 4.66 106/ul Normal 4.20-5.40 [facility] Comment on above: Performed By: #### A CET, SALYC #### [facility] [address] [place] [address] Dr. Ibis Jimenez WBC 10.9 103/ul Normal 4.0-11.0 [facility] Comment on above: Performed By: #### A CET, SALYC #### [facility] [address] [place] [address] Dr. Ibis Jimenez PROF CHEM 8 (BAS METB)on Anion gap [Moles/Vol] 14.1 mmol/L Normal Th [facility] Comment on above: Performed By: #### B MP #### [facility] [address] [address] [address] Ibis Jimenez Calcium [Mass/Vol] 8.5 mg/dL Normal 8.5-10.1 [facility] Comment on above: Performed By: #### B MP #### [facility] [address] [address] [address] Ibis Jimenez Chloride [Moles/Vol] 103 mmol/L Normal 98-107 [facility] Comment on above: Performed By: #### B MP #### [facility] [address] [place] [address] Dr. Ibis Jimenez CO2 [Moles/Vol] 22.5 mmol/L Normal 21.0-32.0 [facility] Comment on above: Performed By: #### B MP #### [facility] [address] [address] [address] Ibis Jimenez Creatinine [Mass/Vol] 0.64 mg/dL Normal 0.55-1.02 [facility] Comment on above: Performed By: #### B MP #### [facility] [address] [place] [address] Dr. Ibis Jimenez EGFR-AF [place]AST [place] >60 Normal >=60 [facility] Comment on above: Performed By: #### B MP #### [facility] [address] [address] [address] Ibis Jimenez EGFR-NON AF [place] >60 Normal >=60 [facility] Comment on above: Performed By: #### B MP #### [facility] [address] [address] [address] Ibis Jimenez Glucose [Mass/Vol] 141 mg/dL Critically high 74-106 [facility] Comment on above: Performed By: #### B MP #### [facility] [address] [place] [address] Dr. Ibis Jimenez Potassium [Moles/Vol] 3.6 mmol/L Normal 3.5-5.1 [facility] Comment on above: Performed By: #### B MP #### [facility] [address] [address] [address] Ibis Jimenez Sodium [Moles/Vol] 136 mmol/L Normal 136-145 [facility] Comment on above: Performed By: #### B MP #### [facility] [address] [place] [address] Dr. Ibis Jimenez Urea nitrogen [Mass/Vol] 16.0 mg/dL Normal 7.0-18.0 [facility] Comment on above: Performed By: #### B MP #### [facility] [address] [place] [address] Dr. Ibis Jimenez Urea nitrogen/Creatinine [Mass ratio] 25.0 mg/mg Normal [facility] Comment on above: Performed By: #### B MP #### [facility] [address] [place] [address] Dr. Ibis Jimenez CBC AUTO DIFFon 11-04-2021 BASO # 0.0 103/ul Normal 0.0-0.1 [facility] Comment on above: Performed By: #### A CET, SALYC #### [facility] [address] [place] [address] Dr. Ibis Jimenez Basophils/100 WBC (Bld) 0.4 % Normal 0.2-2.0 [facility] Comment on above: Performed By: #### A CET, SALYC #### [facility] [address] [place] [address] Dr. Ibis Jimenez EO # 0.2 103/ul Normal 0.0-0.7 [facility] Comment on above: Performed By: #### A CET, SALYC #### [facility] [address] [place] [address] Dr. Ibis Jimenez Eosinophils/100 WBC (Bld) 4.1 % Normal 0.9-7.0 [facility] Comment on above: Performed By: #### A CET, SALYC #### [facility] [address] [place] [address] Dr. Ibis Jimenez Erythrocyte distribution width (RBC) [Ratio] 13.2 % Normal 11.0-15.0 [facility] Comment on above: Performed By: #### A CET, SALYC #### [facility] [address] [place] [address] Dr. Ibis Jimenez Hematocrit (Bld) [Volume fraction] 34.3 % Critically low 36.0-48.0 [facility] Comment on above: Performed By: #### A CET, SALYC #### [facility] [address] [place] [address] Dr. Ibis Jimenez Hemoglobin (Bld) [Mass/Vol] 11.5 g/dL Critically low 12.0-16.0 [facility] Comment on above: Performed By: #### A CET, SALYC #### [facility] [address] [place] [address] Dr. Ibis Jimenez IG # 0.01 10e3/ul Normal 0.00-0.03 [facility] Comment on above: Performed By: #### A CET, SALYC #### [facility] [address] [place] [address] Dr. Ibis Jimenez IG % 0.2 % Normal 0.0-0.5 [facility] Comment on above: Performed By: #### A CET, SALYC #### [facility] [address] [place] [address] Dr. Ibis Jimenez LYMPH # 1.5 103/ul Normal 1.2-3.8 [facility] Comment on above: Performed By: #### A CET, SALYC #### [facility] [address] [place] [address] Dr. Ibis Jimenez Lymphocytes/100 WBC (Bld) 26.4 % Normal 20.5-60.0 [facility] Comment on above: Performed By: #### A CET, SALYC #### [facility] [address] [place] [address] Dr. Ibis Jimenez MANUAL DIFF REQ NO Normal [facility] Comment on above: Performed By: #### A CET, SALYC #### [facility] [address] [place] [address] Dr. Ibis Jimenez MCH (RBC) [Entitic mass] 28.8 pg Normal 26.7-34.0 [facility] Comment on above: Performed By: #### A CET, SALYC #### [facility] [address] [place] [address] Dr. Ibis Jimenez MCHC (RBC) [Mass/Vol] 33.5 g/dL Normal 29.9-35.2 [facility] Comment on above: Performed By: #### A CET, SALYC #### [facility] [address] [place] [address] Dr. Ibis Jimenez MCV (RBC) [Entitic vol] 86.0 fL Normal 81.0-99.0 [facility] Comment on above: Performed By: #### A CET, SALYC #### [facility] [address] [place] [address] Dr. Ibis Jimenez MONO # 0.5 103/ul Normal 0.3-0.8 [facility] Comment on above: Performed By: #### A CET, SALYC #### [facility] [address] [place] [address] Dr. Ibis Jimenez Monocytes/100 WBC (Bld) 8.2 % Normal 1.7-12.0 [facility] Comment on above: Performed By: #### A CET, SALYC #### [facility] [address] [place] [address] Dr. Ibis Jimenez NEUT # 3.4 103/ul Normal 1.4-6.5 [facility] Comment on above: Performed By: #### A CET, SALYC #### [facility] [address] [place] [address] Dr. Ibis Jimenez Neutrophils/100 WBC (Bld) 60.7 % Normal 43.0-75.0 [facility] Comment on above: Performed By: #### A CET, SALYC #### [facility] [address] [place] [address] Dr. Ibis Jimenez Platelet mean volume (Bld) [Entitic vol] 9.9 fL Normal 9.5-13.5 [facility] Comment on above: Performed By: #### A CET, SALYC #### [facility] [address] [address] [address] Ibis Jimenez PLT 222 103/ul Normal 150-450 [facility] Comment on above: Performed By: #### A CET, SALYC #### [facility] [address] [address] [address] Ibis Jimenez RBC 3.99 106/ul Critically low 4.20-5.40 [facility] Comment on above: Performed By: #### A CET, SALYC #### [facility] [address] [place] [address] Dr. Ibis Jimenez WBC 5.6 103/ul Normal 4.0-11.0 [facility] Comment on above: Performed By: #### A CET, SALYC #### [facility] [address] [place] [address] Dr. Ibis Jimenez PROF CHEM 8 (BAS METB)on Anion gap [Moles/Vol] 10.5 mmol/L Normal [facility] Comment on above: Performed By: #### B MP #### [facility] [address] [place] [address] Dr. Ibis Jimenez Calcium [Mass/Vol] 8.8 mg/dL Normal 8.5-10.1 [facility] Comment on above: Performed By: #### B MP #### [facility] [address] [place] [address] Dr. Ibis Jimenez Chloride [Moles/Vol] 105 mmol/L Normal 98-107 [facility] Comment on above: Performed By: #### B MP #### [facility] [address] [place] [address] Dr. Ibis Jimenez CO2 [Moles/Vol] 24.9 mmol/L Normal 21.0-32.0 [facility] Comment on above: Performed By: #### B MP #### [facility] [address] [place] [address] Dr. Ibis Jimenez Creatinine [Mass/Vol] 0.71 mg/dL Normal 0.55-1.02 [facility] Comment on above: Performed By: #### B MP #### [facility] [address] [address] [address] Ibis Jimenez EGFR-AF [place] >60 Normal >=60 [facility] Comment on above: Performed By: #### B MP #### [facility] [address] [address] [address] Ibis Jimenez EGFR-NON AF [place] >60 Normal >=60 [facility] Comment on above: Performed By: #### B MP #### [facility] [address] [address] [address] Ibis Jimenez Glucose [Mass/Vol] 103 mg/dL Normal 74-106 [facility] Comment on above: Performed By: #### B MP #### [facility] [address] [address] [address] Ibis Jimenez Potassium [Moles/Vol] 3.4 mmol/L Critically low 3.5-5.1 [facility] Comment on above: Performed By: #### B MP #### [facility] [address] [address] [address] Ibis Jimenez Sodium [Moles/Vol] 137 mmol/L Normal 136-145 [facility] Comment on above: Performed By: #### B MP #### [facility] [address] [address] [address] Ibis Jimenez Urea nitrogen [Mass/Vol] 17.0 mg/dL Normal 7.0-18.0 [facility] Comment on above: Performed By: #### B MP #### [facility] [address] [address] [address] Ibis Jimenez Urea nitrogen/Creatinine [Mass ratio] 23.9 mg/mg Normal [facility] Comment on above: Performed By: #### B MP #### [facility] [address] [address] [address] Ibis Jimenez Basic Metab w/rfx MGon 10-20 (cont.) Normal [facility] Comment on above: Result Comment: Aver age GFR for 20-29 years old: 116 mL/min/1.73sq m Chronic Kidney Disease: <60 mL/min/1.73sq m Kidney failure: <15 mL/min/1.73sq m eGFR calculated using average adult body mass. Additional eGFR calculator available at: http://www.TouchOfModern.com/multiple_crcl_2012.htm Performed By: #### B MPX #### [address] [address] Product Safety Consultant: Tavon Nicole MD Anion gap [Moles/Vol] 10 mmol/L Normal 9-17 [facility] Comment on above: Performed By: #### B MPX #### [address] [address] Product Safety Consultant: Tavon Nicole MD Calcium [Mass/Vol] 7.8 mg/dL Low 8.6-10.4 [facility] Comment on above: Performed By: #### B MPX #### [address] [address] Product Safety Consultant: Tavon Nicole MD Chloride [Moles/Vol] 109 mmol/L High 98-107 [facility] Comment on above: Performed By: #### B MPX #### [address] [address] Product Safety Consultant: Tavon Nicole MD CO2 [Moles/Vol] 20 mmol/L Normal 20-31 [facility] Comment on above: Performed By: #### B MPX #### [address] [address] Product Safety Consultant: Tavon Nicole MD Creatinine [Mass/Vol] 0.45 mg/dL Low 0.50-0.90 [facility] Comment on above: Performed By: #### B MPX #### [address] [address] Product Safety Consultant: Tavon Nicole MD GFR, Amer >60 Normal >60 [facility] Comment on above: Performed By: #### B MPX #### [address] [address] Product Safety Consultant: Tavon Nicole MD GFR,non Amer >60 Normal >60 [facility] Comment on above: Performed By: #### B MPX #### [address] [address] Product Safety Consultant: Tavon Nicole MD Glucose [Mass/Vol] 84 mg/dL Normal 70-99 [facility] Comment on above: Performed By: #### B MPX #### [address] [address] Product Safety Consultant: Tavon Nicole MD Potassium [Moles/Vol] 4.1 mmol/L Normal 3.7-5.3 [facility] Comment on above: Result Comment: SPEC IMEN SLIGHTLY HEMOLYZED, RESULTS MAY BE ADVERSELY AFFECTED. Performed By: #### B MPX #### [address] [address] Product Safety Consultant: Tavon Nicole MD Sodium [Moles/Vol] 139 mmol/L Normal 135-144 [facility] Comment on above: Performed By: #### B MPX #### [address] [address] Product Safety Consultant: Tavon Nicole MD Urea nitrogen [Mass/Vol] 8 mg/dL Normal 6-20 [facility] Comment on above: Performed By: #### B MPX #### [facility] [employer] [address] [place] [id number] Product Safety Consultant: Tavon Nicole MD Basic Metabolic Panel w/ Ref rossi to MGon 10-20-2021 Anion gap [Moles/Vol] 10 mmol/L 9 - 17 mmol/L [facility] Calcium [Mass/Vol] 7.8 mg/dL Low 8.6 - 10. 4 mg/dL [facility] Chloride [Moles/Vol] 109 mmol/L High 98 - 10 7 mmol/L [facility] CO2 [Moles/Vol] 20 mmol/L 20 - 31 mmol/L [facility] Creatinine [Mass/Vol] 0.45 mg/dL Low 0.5 - 0.9 mg/dL [facility] GFR >60 60 - PI NF mL/min [facility] GFR Non- >60 60 - PINF mL/min [facility] GFR/1.73 sq M.predicted MDRD (S/P/Bld) [Vol rate/Area] [facility] Comment on above: Average GFR for 20-2 9 years old: 116 mL/min/1.73sq m Chronic Kidney Disease: <60 mL/min/1.73sq m Kidney failure: <15 mL/min/1.73sq m eGFR calculated using average adult body mass. Additional eGFR calculator available at: http://www.TouchOfModern.com/multiple_crcl_2012.htm Glucose [Mass/Vol] 84 mg/dL 70 - 99 mg/dL [facility] Interpretation and review of laboratory results Abnormal [facility] Potassium [Moles/Vol] 4.1 mmol/L 3.7 - 5.3 mmol/L [facility] Comment on above: SPECIMEN SLIGHTLY HE MOLYZED, RESULTS MAY BE ADVERSELY AFFECTED. Sodium [Moles/Vol] 139 mmol/L 135 - 144 mmol/L [facility] Urea nitrogen (BldV) [Mass/Vol] 8 mg/dL 6 - 20 mg/dL [facility] CBC with Auto Differentialon 10-20-2021 Absolute Eos # 0.15 [facility] Absolute Immature Granulocyte [facility] Absolute Lymph # 1.48 [facility] Absolute Union # 0.28 [facility] Basophils (Bld) [#/Vol] 0.03 10*3/uL [facility] Basophils/100 WBC (Bld) 1 % 0 - 2 % B ON [facility] Eosinophils/100 WBC (Bld) 3 % 1 - 4 % [facility] Hematocrit (Bld) [Volume fraction] 35.5 % Low 36.3 - 47.1 % [facility] Hemoglobin (Bld) [Mass/Vol] 11.3 g/dL Low 11.9 - 15.1 g/dL [facility] Immature granulocytes/100 WBC (Bld) 0 % 0 [facility] Interpretation and review of laboratory results Abnormal [facility] Lymphocytes/100 WBC (Bld) 34 % 24 - 43 % [facility] MCH (RBC) [Entitic mass] 27.9 pg 25.2 - 33.5 pg [facility] MCHC (RBC) [Mass/Vol] 31.8 g/dL 28.4 - 34.8 g/dL [facility] MCV (RBC) [Entitic vol] 87.7 fL 82.6 - 102.9 fL [facility] Monocytes/100 WBC (Bld) 6 % 3 - 12 % B ON [facility] NRBC Automated 0.0 0.0 per 100 WBC [facility] Platelet distribution width (Bld) [Ratio] 12.9 % 11.8 - 14.4 % [facility] Platelets (Bld) [#/Vol] See Reflexed IPF Result [facility] RBC (Bld) [#/Vol] 4.05 10*6/uL 3.95 - 5.1 1 m/uL [facility] Segmented neutrophils/100 WBC (Bld) 55 % 36 - 65 % [facility] Segs Absolute 2.42 [facility] WBC (Bld) [#/Vol] 4.4 10*3/uL [facility] CBC with Diffon 10-20-2021 Abs. Basophil 0.03 k/uL Normal 0.00-0.20 [facility] Comment on above: Performed By: #### C DP, IPF #### [employer] [address] [place] [address] Product Safety Consultant: Tavon Nicole MD Abs.Imm.Granulocyte <0.03 Normal 0.00-0.30 [facility] Comment on above: Performed By: #### C DP, IPF #### [address] [address] Product Safety Consultant: Tavon Nicole MD Abs.Neutrophil (Seg) 2.42 k/uL Normal 1.50-8.10 [facility] Comment on above: Performed By: #### C DP, IPF #### [address] [address] Product Safety Consultant: Tavon Nicole MD Basophils/100 WBC (Bld) 1 % Normal 0-2 [facility] Comment on above: Performed By: #### C DP, IPF #### [address] [address] Product Safety Consultant: Tavon Nicole MD Eosinophils (Bld) [#/Vol] 0.15 10*3/uL Normal 0.00-0.44 [facility] Comment on above: Performed By: #### C DP, IPF #### [address] [address] Product Safety Consultant: Tavon Nicole MD Eosinophils/100 WBC (Bld) 3 % Normal 1-4 [facility] Comment on above: Performed By: #### C DP, IPF #### [address] [address] Product Safety Consultant: Tavon Nicole MD Immature granulocytes/100 WBC (Bld) 0 % Normal 0 [facility] Comment on above: Performed By: #### C DP, IPF #### [address] [address] Product Safety Consultant: Tavon Nicole MD Lymphocytes (Bld) [#/Vol] 1.48 10*3/uL Normal 1.10-3.70 [facility] Comment on above: Performed By: #### C DP, IPF #### [address] [address] Product Safety Consultant: Tavon iNcole MD Lymphocytes/100 WBC (Bld) 34 % Normal 24-43 [facility] Comment on above: Performed By: #### C DP, IPF #### [address] [address] Product Safety Consultant: Tavon Nicole MD Monocytes (Bld) [#/Vol] 0.28 10*3/uL Normal 0.10-1.20 [facility] Comment on above: Performed By: #### C DP, IPF #### [address] [address] Product Safety Consultant: Tavon Nicole MD Monocytes/100 WBC (Bld) 6 % Normal 3-12 [facility] Comment on above: Performed By: #### C DP, IPF #### [address] [address] Product Safety Consultant: Tavon Nicole MD Neutrophil (Seg) 55 % Normal 36-65 [facility] Comment on above: Performed By: #### C DP, IPF #### [address] [address] Product Safety Consultant: Tavon Nicole MD Erythrocyte distribution width (RBC) [Ratio] 12.9 % Normal 11.8-14.4 [facility] Comment on above: Performed By: #### C DP, IPF #### [address] [address] Product Safety Consultant: Tavon Nicole MD Hematocrit (Bld) [Volume fraction] 35.5 % Low 36.3-47.1 [facility] Comment on above: Performed By: #### C DP, IPF #### [address] [address] Product Safety Consultant: Tavon Nicole MD Hemoglobin (Bld) [Mass/Vol] 11.3 g/dL Low 11.9-15.1 [facility] Comment on above: Performed By: #### C DP, IPF #### [address] [address] Product Safety Consultant: Tavon Nicole MD MCH (RBC) [Entitic mass] 27.9 pg Normal 25.2-33.5 [facility] Comment on above: Performed By: #### C DP, IPF #### [address] [address] Product Safety Consultant: Tavon Nicole MD MCHC (RBC) [Mass/Vol] 31.8 g/dL Normal 28.4-34.8 [facility] Comment on above: Performed By: #### C DP, IPF #### [address] [address] Product Safety Consultant: Tavon Nicole MD MCV (RBC) [Entitic vol] 87.7 fL Normal 82.6-102.9 [facility] Comment on above: Performed By: #### C DP, IPF #### [address] [address] Product Safety Consultant: Tavon Nicole MD NRBC Automated 0.0 per 100 WBC Normal 0.0 [facility] Comment on above: Performed By: #### C DP, IPF #### [place] [address] Product Safety Consultant: Tavon Nicole MD Platelet Count See Reflexed IPF Result Normal 138-453 [facility] Comment on above: Performed By: #### C DP, IPF #### [place] [address] Product Safety Consultant: Tavon Nicole MD RBC (Bld) [#/Vol] 4.05 10*6/uL Normal 3.95-5.11 [facility] Comment on above: Performed By: #### C DP, IPF #### [address] [place] [address] Product Safety Consultant: Tavon Nicole MD WBC (Bld) [#/Vol] 4.4 10*3/uL Normal 3.5-11.3 [facility] Comment on above: Performed By: #### C DP, IPF #### [facility] [employer] [address] [place] [address] Product Safety Consultant: Tavon Nicole MD EEG video monitoringon 10-20 Raiza Land MD 10/20/2021 12:11 PM Referring physician: Chris Blanchard [employer] Date:10/20/2021 Start Time:10/19/2021 @1258 End Time: 10/20/2021 @ 1200 Indication Patient with recurrent events Introduction This continuous video-EEG was acquired using a [employer] workstation at 256 samples/s. Electrodes were placed [...] Certified. Neurology Board Certified. Electronically Signed [facility] [employer] Work Phone: EEG video monitoringOrdered By: Raiza Land on 10-20-2021 [facility] [employer] Work Phone: Immature Platelet Fractionon 10-20-2021 Platelet, Fluorescence Platelet clumps present, count appears adequate. [facility] [employer] PLT, Immature Fract.on 10-20 Platelet, Fluoresc. Platelet clumps present, count appears adequate. Normal 138-453 [facility] Comment on above: Performed By: #### C DP, IPF #### [facility] [employer] [address] [place] [id number] Product Safety Consultant: Tavon Nicole MD PROLACTINon 10-20-2021 Prolactin 41.7 ng/mL Critically high 4.8-23.3 [facility] Comment on above: Performed By: #### C VDTBH #### [facility] [address] [address] [address] Ibis Jimenez CBCon 10-19-2021 Erythrocyte distribution width (RBC) [Ratio] 12.9 % Normal 11.8-14.4 [facility] Comment on above: Performed By: #### T ROPI, LACTIC, CMPX, CBC #### [facility] [address] [place] [phone] Product Safety Consultant: Tavon Nicole MD Hematocrit (Bld) [Volume fraction] 31.5 % Low 36.3-47.1 [facility] Comment on above: Performed By: #### T ROPI, LACTIC, CMPX, CBC #### [employer] [facility] [place] [address] Product Safety Consultant: Tavon Nicole MD Hemoglobin (Bld) [Mass/Vol] 10.8 g/dL Low 11.9-15.1 [facility] Comment on above: Performed By: #### T ROPI, LACTIC, CMPX, CBC #### [facility] [address] [place] [phone] Product Safety Consultant: Tavon Nicole MD MCH (RBC) [Entitic mass] 29.1 pg Normal 25.2-33.5 [facility] Comment on above: Performed By: #### T ROPI, LACTIC, CMPX, CBC #### [address] [address] Product Safety Consultant: Tavon Nicole MD MCHC (RBC) [Mass/Vol] 34.3 g/dL Normal 28.4-34.8 [facility] Comment on above: Performed By: #### T ROPI, LACTIC, CMPX, CBC #### [address] [address] Product Safety Consultant: Tavon Nicole MD MCV (RBC) [Entitic vol] 84.9 fL Normal 82.6-102.9 [facility] Comment on above: Performed By: #### T ROPI, LACTIC, CMPX, CBC #### [address] [address] Product Safety Consultant: Tavon Nicole MD NRBC Automated 0.0 per 100 WBC Normal 0.0 [facility] Comment on above: Performed By: #### T ROPI, LACTIC, CMPX, CBC #### [address] [address] Product Safety Consultant: Tavon Nicole MD Platelet mean volume (Bld) [Entitic vol] 9.8 fL Normal 8.1-13.5 [facility] Comment on above: Performed By: #### T ROPI, LACTIC, CMPX, CBC #### [address] [address] Product Safety Consultant: Tavon Nicole MD Platelets (Bld) [#/Vol] 281 10*3/uL Normal 138-453 [facility] Comment on above: Performed By: #### T ROPI, LACTIC, CMPX, CBC #### [address] [address] Product Safety Consultant: Tavon Nicole MD RBC (Bld) [#/Vol] 3.71 10*6/uL Low 3.95-5.11 [facility] Comment on above: Performed By: #### T ROPI, LACTIC, CMPX, CBC #### [facility] [address] [place], [place] [id number] Product Safety Consultant: Tavon Nicole MD WBC (Bld) [#/Vol] 5.0 10*3/uL Normal 3.5-11.3 [facility] Comment on above: Performed By: #### T ROPI LACTIC, CMPX, CBC #### [facility] [address] [place] [address] Product Safety Consultant: Tavon Nicole MD Hematocrit (Bld) [Volume fraction] 31.5 % Low 36.3 - 47.1 % [facility] Hemoglobin (Bld) [Mass/Vol] 10.8 g/dL Low 11.9 - 15.1 g/dL [facility] Interpretation and review of laboratory results Abnormal [facility] MCH (RBC) [Entitic mass] 29.1 pg 25.2 - 33.5 pg [facility] MCHC (RBC) [Mass/Vol] 34.3 g/dL 28.4 - 34.8 g/dL [facility] MCV (RBC) [Entitic vol] 84.9 fL 82.6 - 102.9 fL [facility] NRBC Automated 0.0 0.0 per 100 WBC [facility] Platelet distribution width (Bld) [Ratio] 12.9 % 11.8 - 14.4 % [facility] Platelet mean volume (Bld) [Entitic vol] 9.8 fL 8.1 - 13.5 fL [facility] Platelets (Bld) [#/Vol] 281 10*3/uL [facility] RBC (Bld) [#/Vol] 3.71 10*6/uL Low 3.95 - 5.1 1 m/uL [facility] WBC (Bld) [#/Vol] 5.0 10*3/uL [facility] CBC AUTO DIFFon 10-19-2021 EO # 0.2 103/ul Normal 0.0-0.7 [facility] Comment on above: Performed By: #### A MM #### [facility] [address] [place] [address] Dr. Ibis Jimenez Eosinophils/100 WBC (Bld) 3.9 % Normal 0.9-7.0 [facility] Comment on above: Performed By: #### A MM #### [facility] [address] [place] [address] Dr. Ibis Jimenez Erythrocyte distribution width (RBC) [Ratio] 13.1 % Normal 11.0-15.0 [facility] Comment on above: Performed By: #### A MM #### [facility] [address] [place] [address] Dr. Ibis Jimenez Hematocrit (Bld) [Volume fraction] 33.4 % Critically low 36.0-48.0 [facility] Comment on above: Performed By: #### A MM #### [facility] [address] [place] [address] Dr. Ibis Jimenez Hemoglobin (Bld) [Mass/Vol] 11.1 g/dL Critically low 12.0-16.0 [facility] Comment on above: Performed By: #### A MM #### [facility] [address] [place] [address] Dr. Ibis Jimenez LYMPH # 1.2 103/ul Normal 1.2-3.8 [facility] Comment on above: Performed By: #### A MM #### [facility] [address] [place] [address] Dr. Ibis Jimenez Lymphocytes/100 WBC (Bld) 25.9 % Normal 20.5-60.0 [facility] Comment on above: Performed By: #### A MM #### [facility] [address] [place] [address] Dr. Ibis Jimenez MCHC (RBC) [Mass/Vol] 33.2 g/dL Normal 29.9-35.2 [facility] Comment on above: Performed By: #### A MM #### [facility] [address] [place] [address] Dr. Ibis Jimenez MCV (RBC) [Entitic vol] 85.9 fL Normal 81.0-99.0 [facility] Comment on above: Performed By: #### A MM #### [facility] [address] [place] [address] Dr. Ibis Jimenez Monocytes/100 WBC (Bld) 7.7 % Normal 1.7-12.0 [facility] Comment on above: Performed By: #### A MM #### [facility] [address] [place] [address] Dr. Ibis Jimenez NEUT # 2.9 103/ul Normal 1.4-6.5 [facility] Comment on above: Performed By: #### A MM #### [facility] [address] [place] [address] Dr. Ibis Jimenez Neutrophils/100 WBC (Bld) 61.5 % Normal 43.0-75.0 [facility] Comment on above: Performed By: #### A MM #### [facility] [address] [place] [address] Dr. Ibis Jimenez PLT 264 103/ul Normal 150-450 [facility] Comment on above: Performed By: #### A MM #### [facility] [address] [place] [address] Dr. Ibis Jimenez RBC 3.89 106/ul Critically low 4.20-5.40 [facility] Comment on above: Performed By: #### A MM #### [facility] [address] [place] [address] Dr. Ibis Jimenez WBC 4.7 103/ul Normal 4.0-11.0 [facility] Comment on above: Performed By: #### A MM #### [facility] [address] [place] [address] Dr. Ibis Jimenez BASO # 0.0 103/ul Normal 0.0-0.1 [facility] Comment on above: Performed By: #### A MM #### [facility] [address] [place] [address] Dr. Ibis Jimenez Performed By: #### C VDTBH #### [facility] [address] [place] [address] Dr. Ibis Jimenez Basophils/100 WBC (Bld) 0.6 % Normal 0.2-2.0 [facility] Comment on above: Performed By: #### A MM #### [facility] [address] [place] [address] Dr. Ibis Jimenez Performed By: #### C VDTBH #### [facility] [address] [place] [address] Dr. Ibis Jimenez EO # 0.3 103/ul Normal 0.0-0.7 [facility] Comment on above: Performed By: #### C VDTBH #### [facility] [address] [place] [address] Dr. Ibis Jimenez Eosinophils/100 WBC (Bld) 5.0 % Normal 0.9-7.0 [facility] Comment on above: Performed By: #### C VDTBH #### [facility] [address] [place] [address] Dr. Ibis Jimenez Erythrocyte distribution width (RBC) [Ratio] 12.8 % Normal 11.0-15.0 [facility] Comment on above: Performed By: #### C VDTBH #### [facility] [address] [place] [address] Dr. Ibis Jimenez Hematocrit (Bld) [Volume fraction] 38.0 % Normal 36.0-48.0 [facility] Comment on above: Performed By: #### C VDTBH #### [facility] [address] [place] [address] Dr. Ibis Jimenez Hemoglobin (Bld) [Mass/Vol] 12.7 g/dL Normal 12.0-16.0 [facility] Comment on above: Performed By: #### C VDTBH #### [facility] [address] [place] [address] Dr. Ibis Jimenez IG # 0.02 10e3/ul Normal 0.00-0.03 [facility] Comment on above: Performed By: #### A MM #### [facility] [address] [place] [address] Dr. Ibis Jimenez Performed By: #### C VDTBH #### [facility] [address] [place] [address] Dr. Ibis Jimenez IG % 0.4 % Normal 0.0-0.5 [facility] Comment on above: Performed By: #### A MM #### [facility] [address] [place] [address] Dr. Ibis Jimenez Performed By: #### C VDTBH #### [facility] [address] [place] [address] Dr. Ibis Jimenez LYMPH # 1.7 103/ul Normal 1.2-3.8 [facility] Comment on above: Performed By: #### C VDTBH #### [facility] [address] [place] [address] Dr. Ibis Jimenez Lymphocytes/100 WBC (Bld) 30.7 % Normal 20.5-60.0 [facility] Comment on above: Performed By: #### C VDTBH #### [facility] [address] [place] [address] Dr. Ibis Jimenez MANUAL DIFF REQ NO Normal [facility] Comment on above: Performed By: #### A MM #### [facility] [address] [place] [address] Dr. Ibis Jimenez Performed By: #### C VDTBH #### [facility] [address] [place] [address] Dr. Ibis Jimenez MCH (RBC) [Entitic mass] 28.5 pg Normal 26.7-34.0 [facility] Comment on above: Performed By: #### A MM #### [facility] [address] [place] [address] Dr. Ibis Jimenez Performed By: #### C VDTBH #### [facility] [address] [place] [address] Dr. Ibis Jimenez MCHC (RBC) [Mass/Vol] 33.4 g/dL Normal 29.9-35.2 [facility] Comment on above: Performed By: #### C VDTBH #### [facility] [address] [place] [address] Dr. Ibis Jimenez MCV (RBC) [Entitic vol] 85.2 fL Normal 81.0-99.0 [facility] Comment on above: Performed By: #### C VDTBH #### [facility] [address] [place] [address] Dr. Ibis Jimenez MONO # 0.4 103/ul Normal 0.3-0.8 [facility] Comment on above: Performed By: #### A MM #### [facility] [address] [place] [address] Dr. Ibis Jimenez Performed By: #### C VDTBH #### [facility] [address] [place] [address] Dr. Ibis Jimenez Monocytes/100 WBC (Bld) 8.1 % Normal 1.7-12.0 [facility] Comment on above: Performed By: #### C VDTBH #### [facility] [address] [place] [address] Dr. Ibis Jimenez NEUT # 3.0 103/ul Normal 1.4-6.5 [facility] Comment on above: Performed By: #### C VDTBH #### [facility] [address] [place] [address] Dr. Ibis Jimenez Neutrophils/100 WBC (Bld) 55.2 % Normal 43.0-75.0 [facility] Comment on above: Performed By: #### C VDTBH #### [facility] [address] [place] [address] Dr. Ibis Jimenez Platelet mean volume (Bld) [Entitic vol] 9.5 fL Normal 9.5-13.5 [facility] Comment on above: Performed By: #### A MM #### [facility] [address] [place] [address] Dr. Ibis Jimenez Performed By: #### C VDTBH #### [facility] [address] [place] [address] Dr. Ibis Jimenez PLT 343 103/ul Normal 150-450 [facility] Comment on above: Performed By: #### C VDTBH #### [facility] [address] [place], [place] [address] Dr. Ibis Jimenez RBC 4.46 106/ul Normal 4.20-5.40 [facility] Comment on above: Performed By: #### C VDTBH #### [facility] [address] [place], [place] [address] Dr. Ibis Jimenez WBC 5.4 103/ul Normal 4.0-11.0 [facility] Comment on above: Performed By: #### C VDTBH #### [facility] [address] [place], [place] [address] HEAD WO CONon [...] by: LOPEZ REYNOLDS Date: 2021-10-19 07:31 Normal [facility] Comp Metabolic Pr/rfx MGon 0 10-19-2021 (cont.) Normal [facility] Comment on above: Result Comment: Aver age GFR for 20-29 years old: 116 mL/min/1.73sq m Chronic Kidney Disease: <60 mL/min/1.73sq m Kidney failure: <15 mL/min/1.73sq m eGFR calculated using average adult body mass. Additional eGFR calculator available at: http://www.[employer]DiObex/multiple_crcl_2011.htm Performed By: #### T ROPI, LACTIC, CMPX, CBC #### [facility] [employer] [address] [place] [phone] Product Safety Consultant: Tavon Nicole MD Albumin [Mass/Vol] 3.5 g/dL Normal 3.5-5.2 [facility] Comment on above: Performed By: #### T ROPI, LACTIC, CMPX, CBC #### [facility] [address] [place] [address] Product Safety Consultant: Tavon Nicole MD Albumin/Glob Ratio 1.4 Normal 1.0-2.5 [facility] Comment on above: Performed By: #### T ROPI, LACTIC, CMPX, CBC #### [facility] [employer] [address] [place] [address] Product Safety Consultant: Tavon Nicole MD Alkaline Phos 69 U/L Normal 35-104 [facility] Comment on above: Performed By: #### T ROPI, LACTIC, CMPX, CBC #### [address] [address] Product Safety Consultant: Tavon Nicole MD ALT [Catalytic activity/Vol] 15 U/L Normal 5-33 [facility] Comment on above: Performed By: #### T ROPI, LACTIC, CMPX, CBC #### [address] [address] Product Safety Consultant: Tavon Nicole MD Anion gap [Moles/Vol] 13 mmol/L Normal 9-17 [facility] Comment on above: Performed By: #### T ROPI, LACTIC, CMPX, CBC #### [address] [address] Product Safety Consultant: Tavon Nicole MD AST [Catalytic activity/Vol] 12 U/L Normal <32 [facility] Comment on above: Performed By: #### T ROPI, LACTIC, CMPX, CBC #### [facility] [address] [place] [address] Product Safety Consultant: Tavon Nicole MD Bilirubin [Mass/Vol] 0.24 mg/dL Low 0.3-1.2 [facility] Comment on above: Performed By: #### T ROPI, LACTIC, CMPX, CBC #### [facility] [address] [place] [address] Product Safety Consultant: Tavon Nicole MD Calcium [Mass/Vol] 8.1 mg/dL Low 8.6-10.4 [facility] Comment on above: Performed By: #### T ROPI, LACTIC, CMPX, CBC #### [facility] [employer] [address] [place] [phone] Product Safety Consultant: Tvaon Nicole MD Chloride [Moles/Vol] 107 mmol/L Normal 98-107 [facility] Comment on above: Performed By: #### T ROPI, LACTIC, CMPX, CBC #### [facility] [employer] [address] [place] [phone] Product Safety Consultant: Tavon Nicole MD CO2 [Moles/Vol] 19 mmol/L Low 20-31 [facility] Comment on above: Performed By: #### T ROPI, LACTIC, CMPX, CBC #### [facility] [employer] [address] [place] [address] Product Safety Consultant: Tavon Nicole MD Creatinine [Mass/Vol] 0.53 mg/dL Normal 0.50-0.90 [facility] Comment on above: Performed By: #### T ROPI, LACTIC, CMPX, CBC #### [facility] [employer] [address] [place] [phone] Product Safety Consultant: Tavon Nicole MD GFR, Amer >60 Normal >60 [facility] Comment on above: Performed By: #### T ROPI, LACTIC, CMPX, CBC #### [facility] [employer] [address] [place] [phone] Product Safety Consultant: Tavon Nicole MD GFR,non Amer >60 Normal >60 [facility] Comment on above: Performed By: #### T ROPI, LACTIC, CMPX, CBC #### [facility] [address] [place] [address] Product Safety Consultant: Tavon Nicole MD Glucose [Mass/Vol] 81 mg/dL Normal 70-99 [facility] Comment on above: Performed By: #### T ROPI, LACTIC, CMPX, CBC #### [facility] [address] [place] [address] Product Safety Consultant: Tavon Nicole MD Potassium [Moles/Vol] 3.9 mmol/L Normal 3.7-5.3 [facility] Comment on above: Performed By: #### T ROPI, LACTIC, CMPX, CBC #### [facility] [address] [place] [address] Product Safety Consultant: Tavon Nicole MD Protein [Mass/Vol] 6.0 g/dL Low 6.4-8.3 [facility] Comment on above: Performed By: #### T ROPI, LACTIC, CMPX, CBC #### [facility] [employer] [address] [place] [address] Product Safety Consultant: Tavon Nicole MD Sodium [Moles/Vol] 139 mmol/L Normal 135-144 [facility] Comment on above: Performed By: #### T ROPI, LACTIC, CMPX, CBC #### [facility] [address] [place] [address] Product Safety Consultant: Tavon Nicole MD Urea nitrogen [Mass/Vol] 10 mg/dL Normal 6-20 [facility] Comment on above: Performed By: #### T ROPI, LACTIC, CMPX, CBC #### [facility] [employer] [address] [place] [phone] Product Safety Consultant: Tavon Nicole MD Comprehensive Metabolic Pane l w/ Reflex to MGon 10-19-2021 Albumin [Mass/Vol] 3.5 g/dL 3.5 - 5.2 g/dL [facility] Albumin/Globulin [Mass ratio] 1.4 {ratio} 1 - 2.5 [facility] ALP (Bld) [Catalytic activity/Vol] 69 U/L 35 - 104 U/L [facility] ALT [Catalytic activity/Vol] 15 U/L 5 - 33 U/L [facility] Anion gap [Moles/Vol] 13 mmol/L 9 - 17 mmol/L [facility] AST [Catalytic activity/Vol] 12 U/L NINF - 32 U/L [facility] Bilirubin [Mass/Vol] 0.24 mg/dL Low 0.3 - 1 .2 mg/dL [facility] [place] Calcium [Mass/Vol] 8.1 mg/dL Low 8.6 - 10. 4 mg/dL [facility] Chloride [Moles/Vol] 107 mmol/L 98 - 10 7 mmol/L [facility] CO2 [Moles/Vol] 19 mmol/L Low 20 - 31 mmol/L [facility] Creatinine [Mass/Vol] 0.53 mg/dL 0.5 - 0.9 mg/dL [facility] Free PSA/Total PSA [Mass fraction] 6.0 g/dL Low 6.4 - 8.3 g/dL [facility] GFR >60 60 - PI NF mL/min [facility] GFR Non- >60 60 - PINF mL/min [facility] GFR/1.73 sq M.predicted MDRD (S/P/Bld) [Vol rate/Area] [facility] Comment on above: Average GFR for 20-2 9 years old: 116 mL/min/1.73sq m Chronic Kidney Disease: <60 mL/min/1.73sq m Kidney failure: <15 mL/min/1.73sq m eGFR calculated using average adult body mass. Additional eGFR calculator available at: http://www.[employer]DiObex/multiple_crcl_2012.htm Glucose [Mass/Vol] 81 mg/dL 70 - 99 mg/dL [facility] Interpretation and review of laboratory results Abnormal [facility] Potassium [Moles/Vol] 3.9 mmol/L 3.7 - 5.3 mmol/L [facility] Sodium [Moles/Vol] 139 mmol/L 135 - 144 mmol/L [facility] Urea nitrogen (BldV) [Mass/Vol] 10 mg/dL 6 - 20 mg/dL [facility] Covid-19 PCR (CVDTBH)on 09-22 SARS-CoV-2 (COVID-19) RNA SAURABH+probe Ql (Unsp spec) Not detected Normal NOT DETECTED [facility] Comment on above: Result Comment: When [...] for this test is supported by the [place] of Health and Human Service's declaration that [...] used). Performed By: #### C VDTBH #### [facility] [address] [place] [address] Dr. Ibis Jimenez DRUG SCREEN RAPID (URINE)on 10-19-2021 AMP Negative Normal NEGATIVE [facility] Comment on above: Performed By: #### B MP #### [facility] [address] [place] [address] Dr. Ibis Jimenez BAR Positive Abnormal NEGATIVE [facility] Comment on above: Performed By: #### B MP #### [facility] [address] [place] [address] Dr. Ibis Jimenez BUP Negative Normal NEGATIVE [facility] Comment on above: Performed By: #### B MP #### [facility] [address] [place] [address] Dr. Ibis Jimenez BZO Positive Abnormal NEGATIVE [facility] Comment on above: Performed By: #### B MP #### [facility] [address] [place] [address] Dr. Ibis Jimenez SEMAJ Negative Normal NEGATIVE [facility] Comment on above: Performed By: #### B MP #### [facility] [address] [place] [address] Dr. Ibis Jimenez CUT-OFFS SEE BELOW Normal [facility] Comment on above: Result Comment: AMP [...] ng/mL Performed By: #### B MP #### [facility] [address] [place] [address] Dr. Iibs Jimenez DRUG CUT HEADER DRUG CLASS TEST SYSTEM CUT-OFF CONCENTRATIONS ARE FOLLOWS: Normal [facility] Comment on above: Performed By: #### B MP #### [facility] [address] [place] [address] Dr. Ibis Jimenez mAMP Negative Normal NEGATIVE [facility] Comment on above: Performed By: #### B MP #### [facility] [address] [place] [address] Dr. Ibis Jimenez MTD Negative Normal NEGATIVE [facility] Comment on above: Performed By: #### B MP #### [facility] [address] [place] [address] Dr. Ibis Jimenez OPI Positive Abnormal NEGATIVE [facility] Comment on above: Performed By: #### B MP #### [facility] [address] [place] [address] Dr. Ibis Jimenez OXY Positive Abnormal NEGATIVE [facility] Comment on above: Performed By: #### B MP #### [facility] [address] [place] [address] Dr. Ibis Jimenez PCP Negative Normal NEGATIVE [facility] Comment on above: Performed By: #### B MP #### [facility] [address] [place] [address] Dr. Ibis Jimenez PPX Negative Normal NEGATIVE [facility] Comment on above: Performed By: #### B MP #### [facility] [address] [place] [address] Dr. Ibis Jimenez TCA Negative Normal NEGATIVE [facility] Comment on above: Performed By: #### B MP #### [facility] [address] [place] [address] Dr. Ibis Jimenez THC Negative Normal NEGATIVE [facility] Comment on above: Performed By: #### B MP #### [facility] [address] [place] [address] Dr. Ibis Jimenez ER URINE PROFILEon 2 Bilirubin Ql (U) Negative Normal NEGATIVE [facility] Comment on above: Performed By: #### B MP #### [facility] [address] [place] [address] Dr. Ibis Jimenez Clarity (U) CLEAR Normal CLEAR [facility] Comment on above: Performed By: #### B MP #### [facility] [address] [place] [address] Dr. Ibis Jimenez Color (U) YELLOW Normal YELLOW [facility] Comment on above: Performed By: #### B MP #### [facility] [address] [place] [address] Dr. Ibis Jimenez ERUSYLVAIN A micrscopic examination will be performed if indicated. Normal [facility] Comment on above: Performed By: #### B MP #### [facility] [address] [place] [address] Dr. Ibis Jimenez Glucose Ql (U) Negative Normal NEGATIVE [facility] Comment on above: Performed By: #### B MP #### [facility] [address] [place] [address] Dr. Ibis Jimenez Hemoglobin Ql (U) TRACE-INTACT Abnormal NEGATIVE [facility] Comment on above: Performed By: #### B MP #### [facility] [address] [place] [address] Dr. Ibis Jimenez Ketones Ql (U) Negative Normal NEGATIVE [facility] Comment on above: Performed By: #### B MP #### [facility] [address] [place] [address] Dr. Ibis Jimenez LEUKOCYTES Negative Normal NEGATIVE [facility] Comment on above: Performed By: #### B MP #### [facility] [address] [place] [address] Dr. Ibis Jimenez Nitrite Ql (U) Negative Normal NEGATIVE [facility] Comment on above: Performed By: #### B MP #### [facility] [address] [place] [address] Dr. Ibis Jimenez pH (U) 5.5 [pH] Normal 5-9 [facility] Comment on above: Performed By: #### B MP #### [facility] [address] [place] [address] Dr. Ibis Jimenez SPEC GRAVITY >=1.030 Abnormal 1.005-<=1.02 5 [facility] Comment on above: Performed By: #### B MP #### [facility] [address] [place] [address] Dr. Ibis Jimenez UA PROTEIN Negative Normal NEGATIVE/ TRACE [facility] Comment on above: Performed By: #### B MP #### [facility] [address] [place] [address] Dr. Ibis Jimenez UR MICRO IND INDICATED Normal [facility] Comment on above: Performed By: #### B MP #### [facility] [address] [place] [address] Dr. Ibis Jimenez Urobilinogen Qn (U) 0.2 {Dinorah'U}/dL Normal 0.2 - 1. 0 [facility] Comment on above: Performed By: #### B MP #### [facility] [address] [place] [address] [address] [address] Ibis Jimenez LACTATE/LACTIC ACIDon 2021 Lactate [Moles/Vol] 1.2 mmol/L Normal 0.4-1.9 [facility] Comment on above: Performed By: #### A MM #### [facility] [address] [place], [place] [id number] Dr. Ibis Jimenez Lactic Acidon 10-19-2021 Lactic Acid,Whole Bl 0.9 mmol/L Normal 0.7-2.1 [facility] Comment on above: Performed By: #### T ROPI, LACTIC, CMPX, CBC #### [facility] [address] [place] [address] Product Safety Consultant: Tavon Nicole MD Lactic Acid, Whole Blood 0.9 mmol/L 0.7 - 2.1 mmol/L [facility] MONOon 10-19-2021 Monocytes (Bld) [#/Vol] Negative Normal NEGATIVE [facility] Comment on above: Performed By: #### M DAVID #### [facility] [address] [place], [place] [id number] Dr. Ibis Jimenez MRI BRAIN W WO [...] Carlos Marks DO 10/19/21 Final result Normal [facility] Unremarkable MR brain. [facility] EXAMINATION: MRI OF THE BRAIN WITHOUT [...] The soft tissues demonstrate no acute abnormality. [facility] Carlos Marks DO - 10/19/2021 EXAMINATION: [...] no acute abnormality. IMPRESSION: Unremarkable MR brain. [employer] Phone: Radiology Study observation (narrative) [address] Phone: MRI BRAIN W WO CONTRASTOrder ed By: Carlos Marks on 10-19-2021 [facility] PH VENOUS BLOODon 10-19-2021 PCO2 VENOUS 36.6 mmHg Critically low 40.0-52.0 [facility] Comment on above: Performed By: #### B MP #### [facility] [address] [place] [address] Dr. Ibis Jimenez pH VENOUS 7.387 Normal 7.330-7.430 [facility] Comment on above: Performed By: #### B MP #### [facility] [address] [place] [address] Dr. Ibis Jimenez PROF CHEM 8 (BAS METB)on Anion gap [Moles/Vol] 11.9 mmol/L Normal [facility] Comment on above: Performed By: #### M DAVID #### [facility] [address] [place] [address] Dr. Ibis Jimenez Calcium [Mass/Vol] 9.1 mg/dL Normal 8.5-10.1 [facility] Comment on above: Performed By: #### M DAVID #### [facility] [address] [place] [address] Dr. Ibis Jimenez Chloride [Moles/Vol] 104 mmol/L Normal 98-107 [facility] Comment on above: Performed By: #### M DAVID #### [facility] [address] [address] [address] Ibis Jimenez CO2 [Moles/Vol] 26.7 mmol/L Normal 21.0-32.0 [facility] Comment on above: Performed By: #### M DAVID #### [facility] [address] [address] [address] Ibis Jimenez Creatinine [Mass/Vol] 0.78 mg/dL Normal 0.55-1.02 [facility] Comment on above: Performed By: #### M DAVID #### [facility] [address] [address] [address] Ibis Jimenez EGFR-AF EAST [place] >60 Normal >=60 [facility] Comment on above: Performed By: #### M DAVID #### [facility] [address] [address] [address] Ibis Jimenez EGFR-NON AF EAST [place] >60 Normal >=60 [facility] Comment on above: Performed By: #### M DAVID #### [facility] [address] [place] [address] Dr. Ibis Jimenez Glucose [Mass/Vol] 96 mg/dL Normal 74-106 [facility] Comment on above: Performed By: #### M DAVID #### [facility] [address] [address] [address] Ibis Jimenez Potassium [Moles/Vol] 3.6 mmol/L Normal 3.5-5.1 [facility] Comment on above: Performed By: #### M DAVID #### [facility] [address] [address] [address] Ibis Jimenez Sodium [Moles/Vol] 139 mmol/L Normal 136-145 [facility] Comment on above: Performed By: #### M DAVID #### [facility] [address] [address] [address] Ibis Jimenez Urea nitrogen [Mass/Vol] 14.0 mg/dL Normal 7.0-18.0 [facility] Comment on above: Performed By: #### M DAVID #### [facility] [address] [address] [address] Ibis Jimenez Urea nitrogen/Creatinine [Mass ratio] 17.9 mg/mg Normal [facility] Comment on above: Performed By: #### M DAVID #### [facility] [id number] Ibis Jimenez TSHon 10-19-2021 TSH 1.389 uIU/mL Normal 0.358-3.740 [facility] Comment on above: Performed By: #### A CET, SALYC #### [facility] [address] [place], [place] [id number] Dr. Ibis Jimenez Troponinon 10-19-2021 Troponin, High Sens <6 Normal 0-14 [facility] Comment on above: Result Comment: High Sensitivity Troponin values cannot be compared with other Troponin methodologies. Patients with high levels of Biotin oral intake (i.e >5mg/day) may have falsely decreased Troponin levels. Samples collected within 8 hours of biotin intake may require additional information for diagnosis. Performed By: #### T ROPI, LACTIC, CMPX, CBC #### [facility] [address] [place] [address] Product Safety Consultant: Tavon Nicole MD Troponin, High Sensitivity ng/L 0 - 14 ng/L [facility] Comment on above: High Sensitivity Troponin values cannot be compared with other Troponin methodologies. Patients with high levels of Biotin oral intake (i.e >5mg/day) may have falsely decreased Troponin levels. Samples collected within 8 hours of biotin intake may require additional information for diagnosis. [facility] URINE MICROSCOPIC ONLYon BACTERIA TRACE Abnormal NONE SEEN [facility] Comment on above: Performed By: #### B MP #### [facility] [address] [place], [place] [id number] Dr. Ibis Jimenez Bacteria identified Cx Nom (U) NOT INDICATED Normal [facility] Comment on above: Performed By: #### B MP #### [facility] [address] [place] [address] Dr. Ibis Jimenez CAST NONE SEEN Normal NONE SEEN [facility] Comment on above: Performed By: #### B MP #### [facility] [address] [place] [address] Dr. Ibis Jimenez Crystals LM Nom (Urine sed) NONE SEEN Normal NONE SEEN [facility] Comment on above: Performed By: #### B MP #### [facility] [address] [place] [address] Dr. Ibis Jimenez Epithelial cells LM Ql (Urine sed) RARE Normal NONE SEEN /RARE [facility] Comment on above: Performed By: #### B MP #### [facility] [address] [place] [address] Dr. Ibis Jimenez MUCOUS LARGE Abnormal NONE SEEN [facility] Comment on above: Performed By: #### B MP #### [facility] [address] [place] [address] Dr. Ibis Jimenez RBC 2-5 Abnormal 0-2 [facility] Comment on above: Performed By: #### B MP #### [facility] [address] [place] [address] Dr. Ibis Jimenez WBC 0-2 Abnormal NONE SEEN [facility] Comment on above: Performed By: #### B MP #### [facility] [address] [place] [address] ABD/PELVIS WO CONon [...] JASS LAURENT Date: 2021-10-06 20:08 Normal [facility] ER URINE PROFILEon 2 Bilirubin Ql (U) Negative Normal NEGATIVE [facility] Comment on above: Performed By: #### M DAVID #### [facility] [address] [place] [address] Dr. Ibis Jimenez Clarity (U) CLEAR Normal CLEAR [facility] Comment on above: Performed By: #### M DAVID #### [facility] [address] [place] [address] Dr. Ibis Jimenez Color (U) LT. YELLOW Normal YELLOW [facility] Comment on above: Performed By: #### M DAVID #### [facility] [address] [place] [address] Dr. Ibis Jimenez ERUKishan A micrscopic examination will be performed if indicated. Normal [facility] Comment on above: Performed By: #### M DAVID #### [facility] [address] [place] [address] Dr. Ibis Jimenez Glucose Ql (U) Negative Normal NEGATIVE [facility] Comment on above: Performed By: #### M DAVID #### [facility] [address] [place] [address] Dr. Ibis Jimenez Hemoglobin Ql (U) Negative Normal NEGATIVE [facility] Comment on above: Performed By: #### M DAVID #### [facility] [address] [place] [address] Dr. Ibis Jimenez Ketones Ql (U) Negative Normal NEGATIVE [facility] Comment on above: Performed By: #### M DAVID #### [facility] [address] [place] [address] Dr. Ibis Jimenez LEUKOCYTES Negative Normal NEGATIVE [facility] Comment on above: Performed By: #### M DAVID #### [facility] [address] [place] [address] Dr. Ibis Jimenez Nitrite Ql (U) Negative Normal NEGATIVE [facility] Comment on above: Performed By: #### M DAVID #### [facility] [address] [place] [address] Dr. Ibis Jimenez pH (U) 8.0 [pH] Normal 5-9 [facility] Comment on above: Performed By: #### M DAVID #### [facility] [address] [place] [address] Dr. Ibis Jimenez SPEC GRAVITY 1.010 Normal 1.005-<=1.02 5 [facility] Comment on above: Performed By: #### M DAVID #### [facility] [address] [place] [address] Dr. Ibis Jimenez UA PROTEIN Negative Normal NEGATIVE/ TRACE [facility] Comment on above: Performed By: #### M DAVID #### [facility] [address] [place] [address] Dr. Ibis Jimenez UR MICRO IND NOT INDICATED Normal [facility] Comment on above: Performed By: #### M DAVID #### [facility] [address] [place] [address] Dr. Ibis Jmienez Urobilinogen Qn (U) 0.2 {Dinorah'U}/dL Normal 0.2 - 1. 0 [facility] Comment on above: Performed By: #### M DAVID #### [facility] [address] [place] [address] Dr. Ibis Jimenez ER URINE PROFILEon 2 Bilirubin Ql (U) Negative Normal NEGATIVE [facility] Comment on above: Performed By: #### C VDTBH #### [facility] [address] [address] [address] Ibis Jimenez Clarity (U) CLEAR Normal CLEAR [facility] Comment on above: Performed By: #### C VDTBH #### [facility] [address] [place] [address] Dr. Ibis Jimenez Color (U) YELLOW Normal YELLOW [facility] Comment on above: Performed By: #### C VDTBH #### [facility] [address] [place] [address] Dr. Ibis RODRIGUEZ A micrscopic examination will be performed if indicated. Normal [facility] Comment on above: Performed By: #### C VDTBH #### [facility] [address] [place] [address] Dr. Ibis Jimenez Glucose Ql (U) Negative Normal NEGATIVE [facility] Comment on above: Performed By: #### C VDTBH #### [facility] [address] [place] [address] Dr. Ibis Jimenez Hemoglobin Ql (U) Negative Normal NEGATIVE [facility] Comment on above: Performed By: #### C VDTBH #### [facility] [address] [place] [address] Dr. Ibis Jimenez Ketones Ql (U) Negative Normal NEGATIVE [facility] Comment on above: Performed By: #### C VDTBH #### [facility] [address] [place] [address] Dr. Ibis Jimenez LEUKOCYTES Negative Normal NEGATIVE [facility] Comment on above: Performed By: #### C VDTBH #### [facility] [address] [place] [address] Dr. Ibis Jimenez Nitrite Ql (U) Negative Normal NEGATIVE [facility] Comment on above: Performed By: #### C VDTBH #### [facility] [address] [place] [address] Dr. Ibis Jimenez pH (U) 6.0 [pH] Normal 5-9 [facility] Comment on above: Performed By: #### C VDTBH #### [facility] [address] [place] [address] Dr. Ibis Jimenez SPEC GRAVITY 1.025 Normal 1.005-<=1.02 5 [facility] Comment on above: Performed By: #### C VDTBH #### [facility] [address] [place] [address] Dr. Ibis Jimenez UA PROTEIN Negative Normal NEGATIVE/ TRACE [facility] Comment on above: Performed By: #### C VDTBH #### [facility] [address] [place] [address] Dr. Ibis Jimenez UR MICRO IND NOT INDICATED Normal [facility] Comment on above: Performed By: #### C VDTBH #### [facility] [address] [place] [address] Dr. Ibis Jimenez Urobilinogen Qn (U) 0.2 {Dinorah'U}/dL Normal 0.2 - 1. 0 [facility] Comment on above: Performed By: #### C VDTBH #### [facility] [address] [place] [address] Dr. Ibis Jimenez CBC AUTO DIFFon 10-03-2021 BASO # 0.0 103/ul Normal 0.0-0.1 [facility] Comment on above: Performed By: #### B MP #### [facility] [address] [place] [address] Dr. Ibis Jimenez Basophils/100 WBC (Bld) 0.3 % Normal 0.2-2.0 [facility] Comment on above: Performed By: #### B MP #### [facility] [address] [place] [address] Dr. Ibis Jimenez EO # 0.3 103/ul Normal 0.0-0.7 [facility] Comment on above: Performed By: #### B MP #### [facility] [address] [place] [address] Dr. Ibis Jimenez Eosinophils/100 WBC (Bld) 4.1 % Normal 0.9-7.0 [facility] Comment on above: Performed By: #### B MP #### [facility] [address] [place] [address] Dr. Ibis Jimenez Erythrocyte distribution width (RBC) [Ratio] 13.2 % Normal 11.0-15.0 [facility] Comment on above: Performed By: #### B MP #### [facility] [address] [place] [address] Dr. Ibis Jimenez Hematocrit (Bld) [Volume fraction] 35.7 % Critically low 36.0-48.0 [facility] Comment on above: Performed By: #### B MP #### [facility] [address] [place] [address] Dr. Ibis Jimenez Hemoglobin (Bld) [Mass/Vol] 11.6 g/dL Critically low 12.0-16.0 [facility] Comment on above: Performed By: #### B MP #### [facility] [address] [place] [address] Dr. Ibis Jimenez IG # 0.02 10e3/ul Normal 0.00-0.03 [facility] Comment on above: Performed By: #### B MP #### [facility] [address] [place] [address] Dr. Ibis Jimenez IG % 0.3 % Normal 0.0-0.5 [facility] Comment on above: Performed By: #### B MP #### [facility] [address] [place] [address] Dr. Ibis Jimenez LYMPH # 1.5 103/ul Normal 1.2-3.8 [facility] Comment on above: Performed By: #### B MP #### [facility] [address] [place] [address] Dr. Ibis Jimenez Lymphocytes/100 WBC (Bld) 24.3 % Normal 20.5-60.0 [facility] Comment on above: Performed By: #### B MP #### [facility] [address] [place] [address] Dr. Ibis Jimenez MANUAL DIFF REQ NO Normal [facility] Comment on above: Performed By: #### B MP #### [facility] [address] [address] [address] Ibis Jimenez MCH (RBC) [Entitic mass] 28.9 pg Normal 26.7-34.0 [facility] Comment on above: Performed By: #### B MP #### [facility] [address] [place] [address] Dr. Ibis Jimenez MCHC (RBC) [Mass/Vol] 32.5 g/dL Normal 29.9-35.2 [facility] Comment on above: Performed By: #### B MP #### [facility] [address] [place] [address] Dr. Ibis Jimenez MCV (RBC) [Entitic vol] 89.0 fL Normal 81.0-99.0 [facility] Comment on above: Performed By: #### B MP #### [facility] [address] [place] [address] Dr. Ibis Jimenez MONO # 0.5 103/ul Normal 0.3-0.8 [facility] Comment on above: Performed By: #### B MP #### [facility] [address] [place] [address] Dr. Ibis Jimenez Monocytes/100 WBC (Bld) 7.3 % Normal 1.7-12.0 [facility] Comment on above: Performed By: #### B MP #### [facility] [address] [place] [address] Dr. Ibis Jimenez NEUT # 4.0 103/ul Normal 1.4-6.5 [facility] Comment on above: Performed By: #### B MP #### [facility] [address] [place] [address] Dr. Ibis Jimenez Neutrophils/100 WBC (Bld) 63.7 % Normal 43.0-75.0 [facility] Comment on above: Performed By: #### B MP #### [facility] [address] [place] [address] Dr. Ibis Jimenez Platelet mean volume (Bld) [Entitic vol] 9.7 fL Normal 9.5-13.5 [facility] Comment on above: Performed By: #### B MP #### [facility] [address] [place] [address] Dr. Ibis Jimenez PLT 237 103/ul Normal 150-450 [facility] Comment on above: Performed By: #### B MP #### [facility] [address] [place] [address] Dr. Ibis Jimenez RBC 4.01 106/ul Critically low 4.20-5.40 [facility] Comment on above: Performed By: #### B MP #### [facility] [address] [place] [address] Dr. Ibis Jimenez WBC 6.3 103/ul Normal 4.0-11.0 [facility] Comment on above: Performed By: #### B MP #### [facility] [address] [place] [address] Dr. Ibis Jimenez LACTATE/LACTIC ACIDon 2021 Lactate [Moles/Vol] 1.2 mmol/L Normal 0.4-1.9 [facility] Comment on above: Performed By: #### A MM #### [facility] [address] [place] [address] Dr. Ibis Jimenez BUNon 10-02-2021 Urea nitrogen [Mass/Vol] 7.0 mg/dL Normal 7.0-18.0 [facility] Comment on above: Performed By: #### C VDTB #### [facility] [address] [place] [address] Dr. Ibis Jimenez CBC AUTO DIFFon 10-02-2021 BASO # 0.0 103/ul Normal 0.0-0.1 [facility] Comment on above: Performed By: #### A MM #### [facility] [address] [place] [address] Dr. Ibis Jimenez Basophils/100 WBC (Bld) 0.2 % Normal 0.2-2.0 [facility] Comment on above: Performed By: #### A MM #### [facility] [address] [place] [address] Dr. Ibis Jimenez EO # 0.0 103/ul Normal 0.0-0.7 [facility] Comment on above: Performed By: #### A MM #### [facility] [address] [place] [address] Dr. Ibis Jimenez Eosinophils/100 WBC (Bld) 0.3 % Critically low 0.9-7.0 [facility] Comment on above: Performed By: #### A MM #### [facility] [address] [place] [address] Dr. Ibis Jimenez Erythrocyte distribution width (RBC) [Ratio] 12.7 % Normal 11.0-15.0 [facility] Comment on above: Performed By: #### A MM #### [facility] [address] [place] [address] Dr. Ibis Jimenez Hematocrit (Bld) [Volume fraction] 43.4 % Normal 36.0-48.0 [facility] Comment on above: Performed By: #### A MM #### [facility] Laboratory [address] [place] [address] Dr. Ibis Jimenez Hemoglobin (Bld) [Mass/Vol] 14.6 g/dL Normal 12.0-16.0 [facility] Comment on above: Performed By: #### A MM #### [facility] [address] [place] [address] Dr. Ibis Jimenez IG # 0.03 10e3/ul Normal 0.00-0.03 [facility] Comment on above: Performed By: #### A MM #### [facility] [address] [place] [address] Dr. Ibis Jimenez IG % 0.3 % Normal 0.0-0.5 [facility] Comment on above: Performed By: #### A MM #### [facility] [address] [place] [address] Dr. Ibis Jimenez LYMPH # 1.2 103/ul Normal 1.2-3.8 [facility] Comment on above: Performed By: #### A MM #### [facility] [address] [place] [address] Dr. Ibis Jimenez Lymphocytes/100 WBC (Bld) 11.6 % Critically low 20.5-60.0 [facility] Comment on above: Performed By: #### A MM #### [facility] [address] [place] [address] Dr. Ibis Jimenez MANUAL DIFF REQ NO Normal [facility] Comment on above: Performed By: #### A MM #### [facility] [address] [place] [address] Dr. Ibis Jimenez MCH (RBC) [Entitic mass] 28.5 pg Normal 26.7-34.0 [facility] Comment on above: Performed By: #### A MM #### [facility] [address] [place] [address] Dr. Ibis Jimenez MCHC (RBC) [Mass/Vol] 33.6 g/dL Normal 29.9-35.2 [facility] Comment on above: Performed By: #### A MM #### [facility] [address] [place] [address] Dr. Ibis Jimenez MCV (RBC) [Entitic vol] 84.6 fL Normal 81.0-99.0 [facility] Comment on above: Performed By: #### A MM #### [facility] [address] [place] [address] Dr. Ibis Jimenez MONO # 0.6 103/ul Normal 0.3-0.8 [facility] Comment on above: Performed By: #### A MM #### [facility] [address] [place] [address] Dr. Ibis Jimenez Monocytes/100 WBC (Bld) 5.9 % Normal 1.7-12.0 [facility] Comment on above: Performed By: #### A MM #### [facility] [address] [place] [address] Dr. Ibis Jimenez NEUT # 8.2 103/ul Critically high 1.4-6.5 [facility] Comment on above: Performed By: #### A MM #### [facility] [address] [place] [address] Dr. Ibis Jimenez Neutrophils/100 WBC (Bld) 81.7 % Critically high 43.0-75.0 [facility] Comment on above: Performed By: #### A MM #### [facility] [address] [place] [address] Dr. Ibis Jimenez Platelet mean volume (Bld) [Entitic vol] 9.8 fL Normal 9.5-13.5 [facility] Comment on above: Performed By: #### A MM #### [facility] [address] [place] [address] Dr. Ibis Jimenez PLT 264 103/ul Normal 150-450 [facility] Comment on above: Performed By: #### A MM #### [facility] [address] [place] [address] Dr. Ibis Jimenez RBC 5.13 106/ul Normal 4.20-5.40 [facility] Comment on above: Performed By: #### A MM #### [facility] [address] [place] [address] Dr. Ibis Jimenez WBC 10.1 103/ul Normal 4.0-11.0 [facility] Comment on above: Performed By: #### A MM #### [facility] [address] [place] [address] Dr. Ibis Jimenez CREATININEon 10-02-2021 Creatinine [Mass/Vol] 0.69 mg/dL Normal 0.55-1.02 [facility] Comment on above: Performed By: #### C VDTBH #### [facility] [address] [place] [address] Dr. Ibis Jimenez EGFR-AF [place] >60 Normal >=60 [facility] Comment on above: Performed By: #### C VDTBH #### [facility] [address] [place] [address] Dr. Ibis Jimenez EGFR-NON AF [place] >60 Normal >=60 [facility] Comment on above: Performed By: #### C VDTBH #### [facility] [address] [place] [address] Dr. Ibis Jimenez CBC AUTO DIFFon 10-01-2021 BASO # 0.0 103/ul Normal 0.0-0.1 [facility] Comment on above: Performed By: #### A MM #### [facility] [address] [place] [address] Dr. Ibis Jimenez Basophils/100 WBC (Bld) 0.3 % Normal 0.2-2.0 [facility] Comment on above: Performed By: #### A MM #### [facility] [address] [place] [address] Dr. Ibis Jimenez EO # 0.1 103/ul Normal 0.0-0.7 [facility] Comment on above: Performed By: #### A MM #### [facility] [address] [place] [address] Dr. Ibis Jimenez Eosinophils/100 WBC (Bld) 1.9 % Normal 0.9-7.0 [facility] Comment on above: Performed By: #### A MM #### [facility] [address] [place] [address] Dr. Ibis Jimenez Erythrocyte distribution width (RBC) [Ratio] 12.7 % Normal 11.0-15.0 [facility] Comment on above: Performed By: #### A MM #### [facility] [address] [place] [address] Dr. Ibis Jimenez Hematocrit (Bld) [Volume fraction] 38.1 % Normal 36.0-48.0 [facility] Comment on above: Performed By: #### A MM #### [facility] [address] [place] [address] Dr. Ibis Jimenez Hemoglobin (Bld) [Mass/Vol] 12.7 g/dL Normal 12.0-16.0 [facility] Comment on above: Performed By: #### A MM #### [facility] [address] [place] [address] Dr. Ibis Jimenez IG # 0.02 10e3/ul Normal 0.00-0.03 [facility] Comment on above: Performed By: #### A MM #### [facility] [address] [place] [address] Dr. Ibis Jimenez IG % 0.3 % Normal 0.0-0.5 [facility] Comment on above: Performed By: #### A MM #### [facility] [address] [place] [address] Dr. Ibis Jimenez LYMPH # 1.9 103/ul Normal 1.2-3.8 [facility] Comment on above: Performed By: #### A MM #### [facility] [address] [place] [address] Dr. Ibis Jimenez Lymphocytes/100 WBC (Bld) 30.5 % Normal 20.5-60.0 [facility] Comment on above: Performed By: #### A MM #### [facility] [address] [place] [address] Dr. Ibis Jimenez MANUAL DIFF REQ NO Normal [facility] Comment on above: Performed By: #### A MM #### [facility] [address] [place] [address] Dr. Ibis Jimenez MCH (RBC) [Entitic mass] 28.3 pg Normal 26.7-34.0 [facility] Comment on above: Performed By: #### A MM #### [facility] [address] [place] [address] Dr. bIis Jimenez MCHC (RBC) [Mass/Vol] 33.3 g/dL Normal 29.9-35.2 [facility] Comment on above: Performed By: #### A MM #### [facility] [address] [place] [address] Dr. Ibis Jimenez MCV (RBC) [Entitic vol] 85.0 fL Normal 81.0-99.0 [facility] Comment on above: Performed By: #### A MM #### [facility] [address] [place] [address] Dr. Ibis Jimenez MONO # 0.3 103/ul Normal 0.3-0.8 [facility] Comment on above: Performed By: #### A MM #### [facility] [address] [place] [address] Dr. Ibis Jimenez Monocytes/100 WBC (Bld) 5.2 % Normal 1.7-12.0 [facility] Comment on above: Performed By: #### A MM #### [facility] [address] [place] [address] Dr. Ibis Jimenez NEUT # 3.9 103/ul Normal 1.4-6.5 [facility] Comment on above: Performed By: #### A MM #### [facility] [address] [place] [address] Dr. Ibis Jimenez Neutrophils/100 WBC (Bld) 61.8 % Normal 43.0-75.0 [facility] Comment on above: Performed By: #### A MM #### [facility] [address] [place] [address] Dr. Ibis Jimenez Platelet mean volume (Bld) [Entitic vol] 9.7 fL Normal 9.5-13.5 [facility] Comment on above: Performed By: #### A MM #### [facility] [address] [place] [address] Dr. Ibis Jimenez PLT 255 103/ul Normal 150-450 [facility] Comment on above: Performed By: #### A MM #### [facility] [address] [place] [address] Dr. Ibis Jimenez RBC 4.48 106/ul Normal 4.20-5.40 [facility] Comment on above: Performed By: #### A MM #### [facility] [address] [place] [address] Dr. Ibis Jimenez WBC 6.3 103/ul Normal 4.0-11.0 [facility] Comment on above: Performed By: #### A MM #### [facility] [address] [place] [address] Dr. Ibis Jimenez PREG HCG QUALon 10-01-2021 , QUAL Negative Normal NEGATIVE [facility] Comment on above: Performed By: #### M DAVID #### [facility] [address] [place] [address] Dr. Ibis Jimenez Cov[facility]-19 PCR [facility]20 SARS-CoV-2 (COVID-19) RNA SAURABH+probe Ql (Unsp spec) Not detected Normal NOT DETECTED [facility] Comment on above: Result Comment: This test is not yet approved or cleared by the [place] FDA. When there are no FDA-approved or cleared tests available, and other criteria are met, FDA can make tests available under an emergency access mechanism called an Emergency Use Authorization (EUA). The EUA for this test is supported by the [place] of Health and Human Service's (HHS's) declaration [...] SARS-CoV-2. Performed By: #### B MP #### [facility] [address] [address] [address] Ibis Jimenez TYPE AND SCREENon 09-29-2021 TYPE AND SCREEN Negative Normal [facility] Comment on above: Performed By: #### B MP #### [facility] [address] [address] [address] Ibis Jimenez Covid-19 PCR (CVDTB)on SARS-CoV-2 (COVID-19) RNA SAURABH+probe Ql (Unsp spec) Not detected Normal NOT DETECTED [facility] Comment on above: Result Comment: This test is not yet approved or cleared by the [place] FDA. When there are no FDA-approved or cleared tests available, and other criteria are met, FDA can make tests available under an emergency access mechanism called an Emergency Use Authorization (EUA). The EUA for this test is supported by the [employer] of Health and Human Service's (HHS's) declaration [...] SARS-CoV-2. Performed By: #### C VDTBH #### [facility] [address] [place] [address] Dr. Ibis Jimenez TYPE AND SCREENon 09-21-2021 TYPE AND SCREEN Negative Normal [facility] Comment on above: Performed By: #### B MP #### [facility] [address] [place] [address] Dr. Ibis Jimenez CHLAMYDIA/GONOCOCCUS SAURABH ( AB/URINE/PAPon 08-17-2021 Chlamydia trachomatis, SAURABH Negative Normal Negative [facility] Comment on above: Performed By: #### A BEE DAVISYC #### [facility] [address] [place] [address] Dr. Ibis Jimenez Neisseria gonorrhoeae, SAURABH Negative Normal Negative [facility] Comment on above: Performed By: #### A RYAN SALYC #### [facility] [address] [place] [address] Dr. Ibis Jimenez CBC AUTO DIFFon 08-14-2021 BASO # 0.0 103/ul Normal 0.0-0.1 [facility] Comment on above: Performed By: #### C VDTBH #### [facility] [address] [place] [address] Dr. Ibis Jimenez Basophils/100 WBC (Bld) 0.3 % Normal 0.2-2.0 [facility] Comment on above: Performed By: #### C VDTBH #### [facility] [address] [place] [address] Dr. Ibis Jimenez EO # 0.2 103/ul Normal 0.0-0.7 [facility] Comment on above: Performed By: #### C VDTBH #### [facility] [address] [place] [address] Dr. Ibis Jimenez Eosinophils/100 WBC (Bld) 2.5 % Normal 0.9-7.0 [facility] Comment on above: Performed By: #### C VDTBH #### [facility] [address] [place] [address] Dr. Ibis Jimenez Erythrocyte distribution width (RBC) [Ratio] 13.0 % Normal 11.0-15.0 [facility] Comment on above: Performed By: #### C VDTBH #### [facility] [address] [place] [address] Dr. Ibis Jimenez Hematocrit (Bld) [Volume fraction] 38.1 % Normal 36.0-48.0 [facility] Comment on above: Performed By: #### C VDTBH #### [facility] [address] [place] [address] Dr. Ibis Jimenez Hemoglobin (Bld) [Mass/Vol] 12.8 g/dL Normal 12.0-16.0 [facility] Comment on above: Performed By: #### C VDTBH #### [facility] [address] [place] [address] Dr. Ibis Jimenez IG # 0.02 10e3/ul Normal 0.00-0.03 [facility] Comment on above: Performed By: #### C VDTBH #### [facility] [address] [place] [address] Dr. Ibis Jimenez IG % 0.3 % Normal 0.0-0.5 [facility] Comment on above: Performed By: #### C VDTBH #### [facility] [address] [place] [address] Dr. Ibis Jimenez LYMPH # 1.5 103/ul Normal 1.2-3.8 [facility] Comment on above: Performed By: #### C VDTBH #### [facility] [address] [place] [address] Dr. Ibis Jimenez Lymphocytes/100 WBC (Bld) 22.5 % Normal 20.5-60.0 [facility] Comment on above: Performed By: #### C VDTBH #### [facility] [address] [place] [address] Dr. Ibis Jimenez MANUAL DIFF REQ NO Normal [facility] Comment on above: Performed By: #### C VDTBH #### [facility] [address] [place] [address] Dr. Ibis Jimenez MCH (RBC) [Entitic mass] 28.6 pg Normal 26.7-34.0 [facility] Comment on above: Performed By: #### C VDTBH #### [facility] [address] [place] [address] Dr. Ibis Jimenez MCHC (RBC) [Mass/Vol] 33.6 g/dL Normal 29.9-35.2 [facility] Comment on above: Performed By: #### C VDTBH #### [facility] [address] [place] [address] Dr. Ibis Jimenez MCV (RBC) [Entitic vol] 85.0 fL Normal 81.0-99.0 [facility] Comment on above: Performed By: #### C VDTBH #### [facility] [address] [place] [address] Dr. Ibis Jimenez MONO # 0.4 103/ul Normal 0.3-0.8 [facility] Comment on above: Performed By: #### C VDTBH #### [facility] [address] [place] [address] Dr. Ibis Jimenez Monocytes/100 WBC (Bld) 6.3 % Normal 1.7-12.0 [facility] Comment on above: Performed By: #### C VDTBH #### [facility] [address] [place] [address] Dr. Ibis Jimenez NEUT # 4.6 103/ul Normal 1.4-6.5 [facility] Comment on above: Performed By: #### C VDTBH #### [facility] [address] [place] [address] Dr. Ibis Jimenez Neutrophils/100 WBC (Bld) 68.1 % Normal 43.0-75.0 [facility] Comment on above: Performed By: #### C VDTBH #### [facility] [address] [place] [address] Dr. Ibis Jimenez Platelet mean volume (Bld) [Entitic vol] 9.8 fL Normal 9.5-13.5 [facility] Comment on above: Performed By: #### C VDTBH #### [facility] [address] [place], [place] [address] Dr. Ibis Jimenez PLT 243 103/ul Normal 150-450 [facility] Comment on above: Performed By: #### C VDTBH #### [facility] [address] [place], [place] [address] Dr. Ibis Jimenez RBC 4.48 106/ul Normal 4.20-5.40 [facility] Comment on above: Performed By: #### C VDTBH #### [facility] [address] [place], [place] [address] Dr. Ibis Jimenez WBC 6.7 103/ul Normal 4.0-11.0 [facility] Comment on above: Performed By: #### C VDTBH #### [facility] [address] [place], [place] [address] ABD/PELVIS WO CONon [...] NELI COTTO Date: 2021-08-14 18:00 Normal [facility] ER URINE PROFILEon 2 Bilirubin Ql (U) SMALL Abnormal NEGATIVE [facility] Comment on above: Performed By: #### B MP #### [facility] [address] [place] [address] Dr. Ibis Jimenez Clarity (U) CLEAR Normal CLEAR [facility] Comment on above: Performed By: #### B MP #### [facility] [address] [place] [address] Dr. Ibis Jimenez Color (U) YELLOW Normal YELLOW [facility] Comment on above: Performed By: #### B MP #### [facility] [address] [place] [address] Dr. Ibis Jimenez ERUAHKishan A micrscopic examination will be performed if indicated. Normal [facility] Comment on above: Performed By: #### B MP #### [facility] [address] [place] [address] Dr. Ibis Jimenez Glucose Ql (U) Negative Normal NEGATIVE [facility] Comment on above: Performed By: #### B MP #### [facility] [address] [place] [address] Dr. Ibis Jimenez Hemoglobin Ql (U) SMALL Abnormal NEGATIVE [facility] Comment on above: Performed By: #### B MP #### [facility] [address] [place] [address] Dr. Ibis Jimenez Ketones Ql (U) TRACE Abnormal NEGATIVE [facility] Comment on above: Performed By: #### B MP #### [facility] [address] [place] [address] Dr. Ibis Jimenez LEUKOCYTES Negative Normal NEGATIVE [facility] Comment on above: Performed By: #### B MP #### [facility] [address] [place] [address] Dr. Ibis Jimenez Nitrite Ql (U) Negative Normal NEGATIVE [facility] Comment on above: Performed By: #### B MP #### [facility] [address] [place] [address] Dr. Ibis Jimenez pH (U) 5.5 [pH] Normal 5-9 [facility] Comment on above: Performed By: #### B MP #### [facility] [address] [place] [address] Dr. Ibis Jimenez SPEC GRAVITY >=1.030 Abnormal 1.005-<=1.02 5 [facility] Comment on above: Performed By: #### B MP #### [facility] [address] [place] [address] Dr. Ibis Jimenez UA PROTEIN TRACE Normal NEGATIVE/ TRACE [facility] Comment on above: Performed By: #### B MP #### [facility] [address] [place] [address] Dr. Ibis Jimenez UR MICRO IND INDICATED Normal [facility] Comment on above: Performed By: #### B MP #### [facility] [address] [place] [address] Dr. Ibis Jimenez Urobilinogen Qn (U) 1.0 {Dinorah'U}/dL Normal 0.2 - 1. 0 [facility] Comment on above: Performed By: #### B MP #### [facility] [address] [place] [address] Dr. Ibis Jimenez URon 08-14-2021 , QUAL Negative Normal NEGATIVE [facility] Comment on above: Performed By: #### B MP #### [facility] [address] [place] [address] Dr. Ibis Jimenez PROF CHEM 8 (BAS METB)on Anion gap [Moles/Vol] 15.3 mmol/L Normal [facility] Comment on above: Performed By: #### B MP #### [facility] [address] [place] [address] Dr. Ibis Jimenez Calcium [Mass/Vol] 8.4 mg/dL Critically low 8.5-10.1 [facility] Comment on above: Performed By: #### B MP #### [facility] [address] [address] [address] Ibis Jimenez Chloride [Moles/Vol] 106 mmol/L Normal 98-107 [facility] Comment on above: Performed By: #### B MP #### [facility] [address] [address] [address] Ibis Jimenez CO2 [Moles/Vol] 22.3 mmol/L Normal 21.0-32.0 [facility] Comment on above: Performed By: #### B MP #### [facility] [address] [address] [address] Ibis Jimenez Creatinine [Mass/Vol] 0.75 mg/dL Normal 0.55-1.02 [facility] Comment on above: Performed By: #### B MP #### [facility] [address] [address] [address] Ibis Jimenez EGFR-AF [place] >60 Normal >=60 [facility] Comment on above: Performed By: #### B MP #### [facility] [address] [address] [address] Ibis Jimenez EGFR-NON AF [place] >60 Normal >=60 [facility] Comment on above: Performed By: #### B MP #### [facility] [address] [address] [address] Ibis Jimenez Glucose [Mass/Vol] 107 mg/dL Critically high 74-106 [facility] Comment on above: Performed By: #### B MP #### [facility] [address] [address] [address] Ibis Jimenez Potassium [Moles/Vol] 3.6 mmol/L Normal 3.5-5.1 [facility] Comment on above: Performed By: #### B MP #### [facility] [address] [address] [address] Ibis Jimenez Sodium [Moles/Vol] 140 mmol/L Normal 136-145 [facility] Comment on above: Performed By: #### B MP #### [facility] [address] [address] [address] Ibis Jimenez Urea nitrogen [Mass/Vol] 13.0 mg/dL Normal 7.0-18.0 [facility] Comment on above: Performed By: #### B MP #### [facility] [address] [place] [address] Dr. Ibis Jimenez Urea nitrogen/Creatinine [Mass ratio] 17.3 mg/mg Normal [facility] Comment on above: Performed By: #### B MP #### [facility] [address] [place] [address] Dr. Ibis Jimenez URINE MICROSCOPIC ONLYon BACTERIA TRACE Abnormal NONE SEEN [facility] Comment on above: Performed By: #### B MP #### [facility] [address] [place] [address] Dr. Ibis Jimenez Bacteria identified Cx Nom (U) NOT INDICATED Normal [facility] Comment on above: Performed By: #### B MP #### [facility] [address] [place] [address] Dr. Ibis Jimenez CAST NONE SEEN Normal NONE SEEN [facility] [facility] Comment on above: Performed By: #### B MP #### [facility] [address] [place] [address] Dr. Ibis Jimenez Crystals LM Nom (Urine sed) NONE SEEN Normal NONE SEEN [facility] Comment on above: Performed By: #### B MP #### [facility] [address] [place] [address] Dr. Ibis Jimenez Epithelial cells LM Ql (Urine sed) MANY Abnormal NONE SEEN /RARE [facility] Comment on above: Performed By: #### B MP #### [facility] [address] [place] [address] Dr. Ibis Jimenez MUCOUS SMALL Abnormal NONE SEEN [facility] Comment on above: Performed By: #### B MP #### [facility] [address] [place] [address] Dr. Ibis Jimenez RBC 2-5 Abnormal 0-2 [facility] Comment on above: Performed By: #### B MP #### [facility] [address] [place] [address] Dr. Ibis Jimenez WBC 2-5 Abnormal NONE SEEN [facility] Comment on above: Performed By: #### B MP #### [facility] [address] [address] [address] Ibis Jimenez CBC Auto DifferentialOrdered By: Vielka Ching on 12-24-2020 Absolute Eos # 0.44 [employer] [facility] Work Phone: Absolute Immature Granulocyte 0.05 [employer] Work Phone: Absolute Lymph # 2.48 [employer] Work Phone: Absolute Union # 0.55 [employer] [facility] Work Phone: Basophils (Bld) [#/Vol] 10*3/uL M [employer] Work Phone: Basophils/100 WBC (Bld) 0 % 0 - 2 % M [employer] Work Phone: Differential Type NOT REPORTED [employer] Work Phone: Eosinophils/100 WBC (Bld) 5 % High 1 - 4 % [employer] Work Phone: Hematocrit (Bld) [Volume fraction] 37.4 % 36.3 - 47.1 % [employer] Work Phone: Hemoglobin.gastrointest inal spec 1 Ql (Stl) 12.3 g/dL 11.9 - 15.1 g/dL [employer] Phone: Immature granulocytes/100 WBC (Bld) 1 % High 0 [employer] Work Phone: Interpretation and review of laboratory results Abnormal [employer] Phone: Lymphocytes/100 WBC (Bld) 30 % 24 - 43 % [employer] Phone: MCH (RBC) [Entitic mass] 28.5 pg 25.2 - 33.5 pg [employer] Work Phone: MCHC (RBC) [Mass/Vol] 32.9 g/dL 28.4 - 34.8 g/dL [employer] Work Phone: MCV (RBC) [Entitic vol] 86.8 fL 82.6 - 102.9 fL [employer] Phone: Monocytes/100 WBC (Bld) 7 % 3 - 12 % [facility] Work Phone: NRBC Automated 0.0 0.0 per 100 WBC [employer] Phone: Platelet distribution width (Bld) [Ratio] 12.7 % 11.8 - 14.4 % [employer] Phone: Platelet Estimate NOT REPORTED [employer] Phone: Platelet mean volume (Bld) [Entitic vol] 9.4 fL 8.1 - 13.5 fL [employer] Phone: Platelets (Bld) [#/Vol] 252 10*3/uL [employer] Phone: RBC (Bld) [#/Vol] 4.31 10*6/uL 3.95 - 5.1 1 m/uL [employer] Work Phone: RBC (Bld) [#/Vol] NOT REPORTED [employer] Phone: Segmented neutrophils/100 WBC (Bld) 57 % 36 - 65 % [employer] Phone: Segs Absolute 4.78 [employer] Work Phone: WBC (Bld) [#/Vol] 8.3 10*3/uL [employer] Work Phone: WBC (Bld) [#/Vol] NOT REPORTED [employer] Phone: [employer] Work Phone: CBC with Diffon 12-24-2020 Abs. Basophil <0.03 Normal 0.00-0.20 [facility] Comment on above: Performed By: #### C JULIA, CDP #### [facility] [address] [place], [place] [id number] Product Safety Consultant: Souleymane Pineda MD Abs.Imm.Granulocyte 0.05 k/uL Normal 0.00-0.30 [facility] Comment on above: Performed By: #### C MPX, CDP #### [facility] [address] [place], [place] [id number] Product Safety Consultant: Souleymane Pineda MD Abs.Neutrophil (Seg) 4.78 k/uL Normal 1.50-8.10 [facility] Comment on above: Performed By: #### C MPX, CDP #### [address] [place], [place] [id number] Product Safety Consultant: Souleymane Pineda MD Basophils/100 WBC (Bld) 0 % Normal 0-2 [facility] Comment on above: Performed By: #### C MPX, CDP #### [address] [place], [facility] Product Safety Consultant: Souleymane Pineda MD Eosinophils (Bld) [#/Vol] 0.44 10*3/uL Normal 0.00-0.44 [facility] Comment on above: Performed By: #### C MPX, CDP #### [address] [place], [place] [id number] Product Safety Consultant: Souleymane Pineda MD Eosinophils/100 WBC (Bld) 5 % High 1-4 [facility] Comment on above: Performed By: #### C MPX, CDP #### [facility] [address] [place] [address] Dr. [place], [place] [id number] Product Safety Consultant: Souleymane Pineda MD Erythrocyte distribution width (RBC) [Ratio] 12.7 % Normal 11.8-14.4 [facility] Comment on above: Performed By: #### C MPX, CDP #### [facility] [address] [place], [place] [id number] Product Safety Consultant: Souleymane Pineda MD Hematocrit (Bld) [Volume fraction] 37.4 % Normal 36.3-47.1 [facility] Comment on above: Performed By: #### C MPX, CDP #### [facility] [address] [place] [address] Product Safety Consultant: Souleymane Pineda MD Hemoglobin (Bld) [Mass/Vol] 12.3 g/dL Normal 11.9-15.1 [facility] Comment on above: Performed By: #### C MPX, CDP #### [address] [place] [address] Product Safety Consultant: Souleymane Pineda MD Immature granulocytes/100 WBC (Bld) 1 % High 0 [facility] Comment on above: Performed By: #### C MPX, CDP #### [address] [place] [address] Product Safety Consultant: Souleymane Pineda MD Lymphocytes (Bld) [#/Vol] 2.48 10*3/uL Normal 1.10-3.70 [facility] Comment on above: Performed By: #### C MPX, CDP #### [address] [place] [address] Product Safety Consultant: Souleymane Pineda MD Lymphocytes/100 WBC (Bld) 30 % Normal 24-43 [facility] Comment on above: Performed By: #### C MPX, CDP #### [facility] [address] [place] [address] Dr. [place], [place] [id number] Product Safety Consultant: Souleymane Pineda MD MCH (RBC) [Entitic mass] 28.5 pg Normal 25.2-33.5 [facility] Comment on above: Performed By: #### C MPX, CDP #### [address] [place] [address] Product Safety Consultant: Souleymane Pineda MD MCHC (RBC) [Mass/Vol] 32.9 g/dL Normal 28.4-34.8 [facility] Comment on above: Performed By: #### C MPX, CDP #### [facility] [address] [place] [address] Dr. [place], [facility] Product Safety Consultant: Souleymane Pineda MD MCV (RBC) [Entitic vol] 86.8 fL Normal 82.6-102.[address] [facility] Comment on above: Performed By: #### C MPX, CDP #### [address] [place], [facility] Product Safety Consultant: Souleymane Pineda MD Monocytes (Bld) [#/Vol] 0.55 10*3/uL Normal 0.10-1.20 [facility] Comment on above: Performed By: #### C MPX, CDP #### [address] [place], [facility] Product Safety Consultant: Souleymane Pineda MD Monocytes/100 WBC (Bld) 7 % Normal 3-[address] [facility] Comment on above: Performed By: #### C MPX, CDP #### [address] [place], [facility] Product Safety Consultant: Souleymane Pineda MD Neutrophil (Seg) 57 % Normal 36-65 [facility] Comment on above: Performed By: #### C MPX, CDP #### [address] [place], [place] [address] Product Safety Consultant: Souleymane Pineda MD NRBC Automated 0.0 per 100 WBC Normal 0.0 [facility] Comment on above: Performed By: #### C MPX, CDP #### [address] [place], [facility] Product Safety Consultant: Souleymane Pineda MD Platelet mean volume (Bld) [Entitic vol] 9.4 fL Normal 8.1-13.5 [facility] Comment on above: Performed By: #### C MPX, CDP #### [address] [place], [place] [id number] Product Safety Consultant: Souleymane Pineda MD Platelets (Bld) [#/Vol] 252 10*3/uL Normal 138-453 [facility] Comment on above: Performed By: #### C MPX, CDP #### [facility] [address] [place], [place] [address] Product Safety Consultant: Souleymane Pineda MD RBC (Bld) [#/Vol] 4.31 10*6/uL Normal 3.95-5.11 [facility] Comment on above: Performed By: #### C MPX, CDP #### [facility] [address] [place], [place] [address] Product Safety Consultant: Souleymane Pineda MD WBC (Bld) [#/Vol] 8.3 10*3/uL Normal 3.5-11.3 [facility] Comment on above: Performed By: #### C MPX, CDP #### [facility] [address] [place] [address] Product Safety Consultant: Souleymane Pineda MD Auto Diff Performed NOT REPORTED Normal [facility] Comment on above: Performed By: #### C MPX, CDP #### [facility] [address] [place] [address] Dr. [place], [place] [id number] Product Safety Consultant: Souleymane Pineda MD Platelet Comment NOT REPORTED Normal [facility] Comment on above: Performed By: #### C MPX, CDP #### [facility] [address] [place] [address] Product Safety Consultant: Souleymane Pineda MD RBC morphology finding Nom (Bld) NOT REPORTED Normal [facility] Comment on above: Performed By: #### C MPX, CDP #### [facility] [address] [place], [place] [id number] Product Safety Consultant: Souleymane Pineda MD WBC Morphology NOT REPORTED Normal [facility] Comment on above: Performed By: #### C MPX, CDP #### [facility] [address] [place] [address] Product Safety Consultant: Souleymane Pineda MD CT HEAD WO CONTRASTon [...] the orbits demonstrate no acute abnormality. SINUSES: Lafn-hb-kcknvayn paranasal sinus mucosal thickening. SOFT TISSUES/SKULL: No acute abnormality of the visualized skull or soft tissues. IMPRESSION: No acute intracranial abnormality. Interpreted by: Edwin Bentley MD Signed by: Edwin Bentley MD 12/24/20 Final result Normal [facility] CT Head WO ContrastOrdered B y: Vielka Ching on 12-24-2020 No acute intracranial abnormality. [facility] Work Phone: EXAMINATION: CT OF THE HEAD [...] the orbits demonstrate no acute abnormality. SINUSES: Oyed-dl-lnryyyrp paranasal sinus mucosal thickening. SOFT TISSUES/SKULL: No acute abnormality of the visualized skull or soft tissues. [employer] Phone: Dimitri, Mhpn Incoming Radiant Results From [employer] - 12/24/2020 8:49 PM EDT EXAMINATION: CT [...] the orbits demonstrate no acute abnormality. SINUSES: Cyen-td-rrcallie paranasal sinus mucosal thickening. SOFT TISSUES/SKULL: No acute abnormality of the visualized skull or soft tissues. IMPRESSION: No acute intracranial abnormality. [employer] Phone: [employer] Phone: Comp Metabolic Pr/rfx MGon 1 02-24-2020 Bilirubin [Mass/Vol] mg/dL Low 0.3-1.2 [facility] Comment on above: Performed By: #### C MPX, CDP #### [facility] [address] [place] [address] Product Safety Consultant: Souleymane Pineda MD (cont.) Normal [facility] Comment on above: Result Comment: Aver age GFR for 20-29 years old: 116 mL/min/1.73sq m Chronic Kidney Disease: <60 mL/min/1.73sq m Kidney failure: <15 mL/min/1.73sq m eGFR calculated using average adult body mass. Additional eGFR calculator available at: http://www.TouchOfModern.com/multiple_crcl_2012.htm Performed By: #### C MPX, CDP #### [facility] [address] [place], [place] [id number] Product Safety Consultant: Souleymane Pineda MD Albumin [Mass/Vol] 4.0 g/dL Normal 3.5-5.2 [facility] Comment on above: Performed By: #### C MPX, CDP #### [facility] [address] [place], [place] [address] Product Safety Consultant: Souleymane Pineda MD Albumin/Glob Ratio 1.5 Normal 1.0-2.5 [facility] Comment on above: Performed By: #### C MPX, CDP #### [facility] [address] [place], [place] [address]83 Product Safety Consultant: Souleymane Pineda MD Alkaline Phos 90 U/L Normal 35-104 [facility] Comment on above: Performed By: #### C MPX, CDP #### [address] [place], [place] [address]83 Product Safety Consultant: Souleymane Pineda MD ALT [Catalytic activity/Vol] 40 U/L High 5-33 [facility] Comment on above: Performed By: #### C MPX, CDP #### [facility] [address] [place], [place] 4708483 Product Safety Consultant: Souleymane Pineda MD Anion gap [Moles/Vol] 11 mmol/L Normal 9-17 [facility] Comment on above: Performed By: #### C MPX, CDP #### [facility] [address] [place], [place] [address] Product Safety Consultant: Souleymane Pineda MD AST [Catalytic activity/Vol] 19 U/L Normal <32 [facility] Comment on above: Performed By: #### C MPX, CDP #### [facility] [address] [place] [address] Product Safety Consultant: Souleymane Pineda MD BUN/CRE Ratio 15 Normal 9-20 [facility] Comment on above: Performed By: #### C MPX, CDP #### [facility] [address] [place], [place] [address]83 Product Safety Consultant: Souleymane Pineda MD Calcium [Mass/Vol] 8.9 mg/dL Normal 8.6-10.4 [facility] Comment on above: Performed By: #### C MPX, CDP #### [facility] [address] [place], [place] 8556283 Product Safety Consultant: Souleymane Pineda MD Chloride [Moles/Vol] 104 mmol/L Normal 98-107 [facility] Comment on above: Performed By: #### C MPX, CDP #### [facility] [address] [place], [place] [address]175483 Product Safety Consultant: Souleymane Pineda MD CO2 [Moles/Vol] 24 mmol/L Normal 20-31 [facility] Comment on above: Performed By: #### C MPX, CDP #### [facility] [address] [place] [address] Product Safety Consultant: Souleymane Pineda MD Creatinine [Mass/Vol] 0.60 mg/dL Normal 0.50-0.90 [facility] Comment on above: Performed By: #### C MPX, CDP #### [facility] [address] [place] [address] Product Safety Consultant: Souleymane Pineda MD GFR, Amer >60 Normal >60 [facility] Comment on above: Performed By: #### C MPX, CDP #### [facility] [address] [place] [address] Product Safety Consultant: Souleymane Pineda MD GFR,non Amer >60 Normal >60 [facility] Comment on above: Performed By: #### C MPX, CDP #### [facility] [address] [place], [place] [address]36[address] Product Safety Consultant: Souleymane Pineda MD Glucose [Mass/Vol] 91 mg/dL Normal 70-99 [facility] Comment on above: Performed By: #### C MPX, CDP #### [facility] [address] [place], [place] [address]89[address] Product Safety Consultant: Souleymane Pineda MD Potassium [Moles/Vol] 4.0 mmol/L Normal 3.7-5.3 [facility] Comment on above: Performed By: #### C MPX, CDP #### [address] [place], [place] [address]3 Product Safety Consultant: Souleymane Pineda MD Protein [Mass/Vol] 6.7 g/dL Normal 6.4-8.3 [facility] Comment on above: Performed By: #### C MPX, CDP #### [address] [place], [place] [address] Product Safety Consultant: Souleymane Pineda MD Sodium [Moles/Vol] 139 mmol/L Normal 135-144 [facility] Comment on above: Performed By: #### C MPX, CDP #### [facility] [address] [place], [place] [address]83 Product Safety Consultant: Souleymane Pineda MD Staging: Normal [facility] Comment on above: Result Comment: Stag e 1: Some kidney damage normal GFR Stage 2: Mild kidney damage GFR 60-89 Stage 3: Moderate kidney damage GFR 30-59 Stage 4: Severe kidney damage GFR 15-29 Stage 5: Severe kidney damage GFR <15 ESRD - chronic treatment by dialysis or transplant Performed By: #### C MPX, CDP #### [facility] [address] [place] [address] Product Safety Consultant: Souleymane Pineda MD Urea nitrogen [Mass/Vol] 9 mg/dL Normal 6-20 [facility] Comment on above: Performed By: #### C MPX, CDP #### [facility] [address] [place] [address] Product Safety Consultant: Souleymane Pineda MD Comprehensive Metabolic Pane l w/ Reflex to MGOrdered By: Vielka Ching on 12-24-2020 Albumin [Mass/Vol] 4 g/dL 3.5 - 5.2 g/dL [employer] Phone: Albumin/Globulin [Mass ratio] 1.5 {ratio} [employer] Phone: ALP (Bld) [Catalytic activity/Vol] 90 U/L 35 - 104 U/L [facility] Phone: ALT [Catalytic activity/Vol] 40 U/L High 5 - 33 U/L [facility] Phone: Anion gap [Moles/Vol] 11 mmol/L 9 - 17 mmol/L [employer] Phone: AST [Catalytic activity/Vol] 19 U/L <32 [employer] Phone: Bilirubin [Mass/Vol] mg/dL Low 0.3 - 1 .2 mg/dL [employer] Phone: Calcium [Mass/Vol] 8.9 mg/dL 8.6 - 10. 4 mg/dL [employer] Phone: Chloride [Moles/Vol] 104 mmol/L 98 - 10 7 mmol/L [employer] Phone: CO2 [Moles/Vol] 24 mmol/L 20 - 31 mmol/L [employer] Phone: Creatinine [Mass/Vol] 0.6 mg/dL 0.50 - 0.90 mg/dL [employer] Phone: Free PSA/Total PSA [Mass fraction] 6.7 g/dL 6.4 - 8.3 g/dL [employer] Phone: GFR >60 >60 mL/min [employer] Phone: GFR Non- >60 >60 mL/min [employer] Phone: Glucose [Mass/Vol] 91 mg/dL 70 - 99 mg/dL [employer] Phone: Interpretation and review of laboratory results Abnormal [employer] Phone: Potassium [Moles/Vol] 4.0 mmol/L 3.7 - 5.3 mmol/L [employer] Phone: Sodium [Moles/Vol] 139 mmol/L 135 - 144 mmol/L [employer] Phone: Urea nitrogen (BldV) [Mass/Vol] 9 mg/dL 6 - 20 mg/dL [employer] Phone: Urea nitrogen/Creatinine (Bld) [Mass ratio] 15 [employer] Phone: [employer] Phone: Laboratory - Chemistry and C hemistry - challengeOrdered By: Vielka Ching on 12-24-2020 GFR/1.73 sq M.predicted MDRD (S/P/Bld) [Vol rate/Area] [employer] Phone: Comment on above: Average GFR for 20-2 9 years old: 116 mL/min/1.73sq m Chronic Kidney Disease: <60 mL/min/1.73sq m Kidney failure: <15 mL/min/1.73sq m eGFR calculated using average adult body mass. Additional eGFR calculator available at: http://www.[employer] Inc[employer]DiObex/multiple_crcl_2012.htm Stage 1: Some kidney damage normal GFR [...] pressure 62 mm[Hg] Infusion 7 Work Phone: [facility] 04-14-2023 11:08-0500 Heart rate 84 /min Infusion 7 Work Phone: [facility] 04-14-2023 11:08-0500 Systolic blood pressure 109 mm[Hg] Infusion 7 Work Phone: [facility] 04-13-2023 10:50-0500 Diastolic blood pressure 63 mm[Hg] Infusion 7 Work Phone: [facility] 04-13-2023 10:50-0500 Heart rate 86 /min Infusion 7 Work Phone: [facility] 04-13-2023 10:50-0500 Systolic blood pressure 127 mm[Hg] Infusion 7 Work Phone: [facility] 04-12-2023 13:45-0500 Diastolic blood pressure 58 mm[Hg] Infusion 7 Work Phone: [facility] 04-12-2023 13:45-0500 Heart rate 79 /min Infusion 7 Work Phone: [facility] 04-12-2023 13:45-0500 Systolic blood pressure 120 mm[Hg] Infusion 7 Work Phone: [facility] 11-11-2022 10:55-0400 Diastolic blood pressure 63 mm[Hg] Infusion 8 Work Phone: [facility] 11-11-2022 10:55-0400 Heart rate 83 /min Infusion 8 Work Phone: [facility] 11-11-2022 10:55-0400 Systolic blood pressure 110 mm[Hg] Infusion 8 Work Phone: [facility] 07-28-2022 10:15-0400 Diastolic blood pressure 50 mm[Hg] Infusion 8 Work Phone: [facility] 07-28-2022 10:15-0400 Heart rate 80 /min Infusion 8 Work Phone: [facility] 07-28-2022 10:15-0400 Systolic blood pressure 105 mm[Hg] Infusion 8 Work Phone: [facility] 12-03-2021 09:47-0400 Diastolic blood pressure 81 mm[Hg] Jesse Wharton MD Work Phone: [facility] 12-03-2021 09:47-0400 Heart rate 66 /min Jesse Wharton MD Work Phone: [facility] 12-03-2021 09:47-0400 SaO2% (BldA) [Mass fraction] 100 % Jesse Wharton MD Work Phone: [facility] 12-03-2021 09:47-0400 Systolic blood pressure 131 mm[Hg] Jesse Wharton MD Work Phone: [facility] 10-20-2021 12:00-0400 Diastolic blood pressure 101 mm[Hg] Lucila Mota MD Work Phone: [facility] [employer] 10-20-2021 12:00-0400 Heart rate 85 /min Lucila Mota MD Work Phone: [facility] [employer] 10-20-2021 12:00-0400 Respiratory rate 12 /min Lucila Mota MD Work Phone: [facility] 10-20-2021 12:00-0400 SaO2% (BldA) [Mass fraction] 98 % Lucila Mota MD Work Phone: [facility] [employer] 10-20-2021 12:00-0400 Systolic blood pressure 136 mm[Hg] Lucila Mota MD Work Phone: [facility] [employer] 10-20-2021 08:00-0400 Body temperature 98.2 [degF] Lucila Mota MD Work Phone: [facility] [employer] 12-24-2020 19:36-0400 Body temperature 99 [degF] Vielka Ching DO Work Phone: [employer] Work Phone: 12-24-2020 19:36-0400 Diastolic blood pressure 80 mm[Hg] Vielka Ching DO Work Phone: [employer] Work Phone: 12-24-2020 19:36-0400 Heart rate 108 /min Vielka Ching DO Work Phone: [employer] Work Phone: 12-24-2020 19:36-0400 Respiratory rate 20 /min Vielka Ching DO Work Phone: [employer] Work Phone: 12-24-2020 19:36-0400 SaO2% (BldA) [Mass fraction] 96 % Vielka Ching DO Work Phone: [employer] Work Phone: 12-24-2020 19:36-0400 Systolic blood pressure 136 mm[Hg] Vielka Ching DO Work Phone: [employer] Work Phone: Encounters Encounter Date Encounter Type Care Provider Facility Start: 04-17-2023 ambulatory Ramsey Nunn acility:[facility] Start: 04-14-2023 End: 04-14-2023 ambulatory SUZAN DRIVER Facility:[facility] Start: 04-14-2023 End: 04-14-2023 ambulatory Infusion Main Chair 7 Work Phone: Neurology Comment on above: Chronic migraine wit hout aura, with intractable migraine, so stated, with status migrainosus (Primary Dx); 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 with status migrainosus Start: 04-14-2023 End: 04-14-2023 Patient encounter procedure Suzan Driver APRN.[employer] Work Phone: Neurology Comment on above: 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 with status migrainosus (Primary Dx); 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 without status migrainosus Start: 04-13-2023 Telephone encounter Logan Barth APRN.[employer] Work Phone: Neurology Comment on above: Appointment (Patient currently receiving infusions for headache. She is interested in learning about reboot program. Please schedule patient for evaluation if appropriate to proceed.) Start: 04-13-2023 End: 04-13-2023 ambulatory SUZAN DRIVER Facility:[facility] Start: 04-13-2023 End: 04-13-2023 ambulatory Infusion Main Chair 7 Work Phone: Neurology Comment on above: Chronic migraine wit hout aura, with intractable migraine, so stated, with status migrainosus (Primary Dx); 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 with status migrainosus Start: 04-12-2023 End: 04-12-2023 ambulatory SUZAN DRIVER Facility:[facility] Start: 04-12-2023 End: 04-12-2023 ambulatory SUZAN DRIVER Facility:[facility] Start: 04-12-2023 End: 04-12-2023 Patient encounter procedure Suzan Driver APRN.CNP Work Phone: Neurology Comment on above: Intractable [...] Telephone encounter Angely rousseau RN Work Phone: [facility] Comment on above: Insurance Authorizat ion ([employer] 70MG/ML auto-injectors/) Start: 03-23-2023 End: 03-23-2023 ambulatory LOGAN BARTH Facility:[facility] Start: 03-22-2023 End: 03-22-2023 ambulatory SUZAN DRIVER Facility:[facility] Start: 03-21-2023 End: 03-21-2023 ambulatory SEPNSER SHAY Not Available Start: 03-20-2023 End: 03-20-2023 ambulatory ZAY BLAS Not Available Start: 03-07-2023 End: 03-07-2023 ambulatory ZAY LEONARDO Not Available Start: 02-07-2023 End: 02-07-2023 ambulatory ZAY LEONARDO Not Available Start: 01-26-2023 End: 01-26-2023 ambulatory ZAY LEONARDO Not Available Start: 12-13-2022 Refill Cameroni Green APR N.CEMENTER [employer] Work Phone: Neurology [facility] Comment on above: Refill Request Infusion (HEADACHE I NFUSIONS) Start: 12-12-2022 End: 12-12-2022 ambulatory KOLI GREEN Facility:[facility] Start: 12-09-2022 Refill Ольга Cardona marbin CONCRETE SMOOTHER.CEMENTER [employer] Work Phone: Neurology Comment on above: Refill Request Start: 11-11-2022 End: 11-11-2022 ambulatory Infusion Main Chair 8 Work Phone: Neurology Comment on above: 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 with status migrainosus (Primary Dx) Start: 11-10-2022 End: 11-10-2022 ambulatory ОЛЬГА Rhina JEFF Facility:[facility] Start: 11-10-2022 End: 11-10-2022 ambulatory Ольга Lantigua Jeff CONCRETE SMOOTHER.CEMENTER [employer] Work Phone: Neurology Comment on above: 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 with status migrainosus (Primary Dx) Nerve block Start: 11-10-2022 Telephone encounter Suzan dinero APRN.CEMENTER [employer] Work Phone: Neurology Comment on above: Infusion Start: 11-10-2022 End: 11-10-2022 Telemedicine consultation with patient Ольга Aguilar CONCRETE SMOOTHER.CEMENTER [employer] Work Phone: [facility] Start: 10-12-2022 End: 10-12-2022 ambulatory Suzan Driver APRN.CEMENTER [employer] Work Phone: Neurology Comment on above: Botox Start: 10-12-2022 E-mail encounter fro m caregiver Suzan Driver APRN.CNP Work Phone: [facility] Start: 09-29-2022 Telephone encounter Angely rousseau RN Work Phone: [facility] Comment on above: Insurance Authorizat ion (Zomig 5MG nasal spray/) Start: 09-27-2022 ambulatory Logan Barth APR N.CEMENTER [employer] Work Phone: [facility] Comment on above: My apt Monday Start: 09-16-2022 ambulatory Logan Barth APR N.CEMENTER [employer] Work Phone: [facility] Start: 09-16-2022 Patient encounter procedure Logan Barth CONCRETE SMOOTHER.CEMENTER [employer] Work Phone: [facility] Comment on above: Appointment Start: 09-12-2022 End: 09-12-2022 ambulatory LOGAN BARTH Facility:[facility] Start: 08-31-2022 End: 08-31-2022 ambulatory LOGAN BARTH Facility:[facility] Start: 08-31-2022 End: 08-31-2022 ambulatory Logan Barth CONCRETE SMOOTHER.CEMENTER [employer] Work Phone: Neurology Comment on above: Chronic migraine w/o aura, not intractable, w/o stat migr (Primary Dx) Start: 08-31-2022 End: 08-31-2022 Telemedicine consultation with patient Logan Barth APRN.CEMENTER [employer] Work Phone: [facility] Start: 08-09-2022 ambulatory Logan Barth APR N.CEMENTER [employer] Work Phone: [facility] Comment on above: Pain Start: 08-08-2022 End: 08-08-2022 ambulatory Jesse Wharton MD Work Phone: Neurology Comment on above: 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 with status migrainosus (Primary Dx) Start: 08-08-2022 End: 08-08-2022 Telemedicine consultation with patient Jesse Wharton MD Work Phone: [facility] Start: 08-07-2022 ambulatory Jesse rick MD Work Phone: Neurology Comment on above: Name of medication Start: 07-29-2022 End: 07-29-2022 ambulatory MARIA DEL ROSARIO HAHN Facility:[facility] Start: 07-28-2022 End: 07-28-2022 ambulatory MARIA DEL ROSARIO HAHN Facility:[facility] Start: 07-28-2022 End: 07-28-2022 ambulatory Infusion Main Chair 8 Work Phone: Neurology Comment on above: 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 with status migrainosus (Primary Dx) Start: 07-27-2022 End: 07-27-2022 ambulatory MARIA DEL ROSARIO HAHN Facility:[facility] Start: 07-21-[address] ZAY BLAS . Facili ty:[facility]1 Start: 07-14-2022 Encounter for other preprocedural examination DR ZAY BLAS . [facility] Start: 07-12-2022 End: 07-13-[address] ZAY BLAS . Facility: Start: 07-12-2022 End: 07-13-2022 Encounter for other preprocedural examination DR ZAY BLAS . Facility:[facility] Start: 07-05-2022 ambulatory KRISTOFER Nunn acility:[facility] Start: 06-27-2022 Telephone encounter Logan Barth APRN.CNP Work Phone: Neurology Comment on above: Appointment (infusio n) Start: 06-24-2022 End: 06-24-2022 ambulatory LOGAN BARTH Facility:[facility] Start: 06-20-2022 End: 06-20-2022 ambulatory MANJINDER [...] Facility:[facility] Start: 01-07-2022 End: 01-07-2022 ambulatory MANJINDER SAY Facility:[facility] Start: 12-19-2021 ambulatory Jesse rick MD [...] with patient Nelly Saldaña KRISTOFER Work Phone: [facility] Start: 11-09-2021 ambulatory Tyrone Dolan MD, PhD Work Phone: [facility] Start: 11-09-2021 Patient encounter procedure Tyrone Dolan MD, PhD Work Phone: Neurology Comment on above: Request Veido appoin tment Start: 11-08-2021 ambulatory Tyrone Dolan MD, PhD Work Phone: [facility] Start: 11-08-2021 Patient encounter procedure Tyrone [...] patient Tyrone Dolan MD, PhD Work Phone: [facility] Start: 10-26-2021 Patient encounter procedure Román Storey MD Work Phone: Neurology Comment on above: Seizure-like activit y (HCC) (Primary Dx) Start: 10-19-2021 End: 10-20-2021 Evaluation and management of inpatient LUCILA MOTA [facility] Start: 10-19-2021 End: 10-20-2021 Evaluation and management of inpatient Lucila Mota MD Work Phone: [facility] 1B Neuro ICU Start: 10-19-2021 End: 10-19-2021 ambulatory SHAIKH Joseph WALLS Facility:[facility] Start: 10-07-2021 End: 10-07-[address] ZAY BLAS . Facility:[facility] Start: 10-06-2021 End: 10-06-2021 ambulatory SUKHDEEP DOCKERY Facility:[facility] Start: 10-03-2021 End: 10-04-2021 ambulatory MANJINDER DEAL Facility:[facility] Start: 10-01-2021 End: 10-02-2021 Evaluation and management of inpatient DR ANGÉLICA ARTHUR Facility:[facility] Start: 10-01-2021 Encounter for preprocedural laboratory examination DR ZAY BLAS . [facility] Start: 09-29-2021 End: 09-30-[address] ZAY BLAS . Facility:[facility] Start: 09-29-2021 End: 09-30-2021 Encounter for preprocedural laboratory examination DR ZAY BLAS . Facility:[facility] Start: 09-21-2021 End: 09-22-[address] ANGÉLICA ARTHUR Facility:[facility] Start: 09-14-2021 End: 09-15-[address] ANGÉLICA SANCHEZKrupa Facility:[facility] Start: 08-14-2021 End: 08-14-2021 ambulatory BLUE GRACE Facility:[facility] Start: 08-14-2021 End: 08-14-2021 ambulatory BLUE GRACE Facility:[facility] Start: 12-24-2020 End: 12-24-2020 Emergency department patient visit ANGÉLICA ARTHUR [facility] Start: 12-24-2020 End: 12-24-2020 Emergency department patient visit Vielka Ching DO Work Phone: [facility] ED Comment on above: Migraine without sta [...] 10-20-2021 EEG VIDEO MONITORING Marcy altman Chris CONCRETE SMOOTHER - CEMENTER [employer] Work Phone: Start: 10-20-2021 BASIC METABOLIC PANE L W/ REFLEX TO MG FOR LOW K Puri Rikki Mota MD Work Phone: Start: 10-20-2021 Blood count complete auto&auto difrntl wbc Lo Perez CONCRETE SMOOTHER - [employer]EMENTER [employer] Work Phone: Start: 10-20-2021 IMMATURE PLATELET FRACTION Lo Perez CONCRETE SMOOTHER - [employer]EMENTER [employer] Work Phone: Start: 10-19-2021 Assay of lactate Madiso radha Perez CONCRETE SMOOTHER - CEMENTER [employer] Work Phone: Start: 10-19-2021 Ecg routine ecg w/le ast 12 lds w/i&r Lo Perez CONCRETE SMOOTHER - [employer]ER [employer] Work Phone: Start: 10-19-2021 Mri brain brain stem w/o w/contrast material Lo Perez CONCRETE SMOOTHER - [employer]EMENTER [employer] Work Phone: Start: 10-19-2021 RESPIRATORY CARE EVALUATION ONLY Lo Perez CONCRETE SMOOTHER - CEMENTER [employer] Work Phone: Start: 10-01-2021 Resection of Bilater [...] vaccine (7 - Td or Tdap) [facility] Start: 09-20-2025 Urine microalbumin profile [facility] Start: 02-20-2023 Depression Assessment Depression Ass [facility] Start: 10-29-2022 Adult depression screening assessment DEPRESSION SCREENING [facility] Start: 10-21-2022 Influenza vaccination C [facility] Start: 02-20-2022 DEPRESSION ASSESSMENT DEPRESSION ASS [facility] Start: 10-26-2021 End: 10-26-2022 SARS-CoV-2 (COVID-19) RNA [Presence] in Respiratory specimen by SAURABH with probe detection PRE-PROCEDURE & PRE-OPERATIVE COVID Microbiology Routine Seizure-like activity (HCC) Expected: 10/26/2021, Expires: 10/26/2022 [facility] Work Phone: Comment on above: Expected: 10/26/2021 , Expires: 10/26/2022 Start: 10-21-2021 Influenza vaccination B ON [facility] Start: 02-20-2021 DEPRESSION ASSESSMENT DEPRESSION ASS [facility] Start: 10-21-2020 Influenza vaccination Flu vaccine (# 1) [facility] [employer] Work Phone: Start: 11-13-2016 PAP TESTING PAP TESTING [facility] Start: 11-13-2016 Screening for malign ant neoplasm of cervix [facility] Start: 11-13-2014 Urine microalbumin profile [facility] Start: 11-13-2013 Hepatitis C screening B ON [facility] Start: 11-13-2013 HEPATITIS C SCREENING HEPATITIS C SC KALE [facility] Start: 11-13-2013 HIV SCREENING HIV SCREENING [facility] Start: 11-13-2013 HIV screening HIV Screening [facility] Start: 2011 Screening for Chlamy rose trachomatis Chlamydia screen [facility] [employer] Start: 11-13-2010 HIV screening HIV screen [facility] [employer] Start: 11-13-2009 PEDS TO ADULT TRANSITION ANNUAL ASSESSMENT PEDS TO ADULT TRANSITION ANNUAL ASSESSMENT [facility] Start: 2007 Adult depression screening assessment DEPRESSION SCREENING [facility] Start: 2007 COVID-19 Vaccine (1) COVID-19 Vaccin e (1) [employer] Phone: Start: 2007 Depression Screen [facility] Start: 2007 PEDS TO ADULT TRANSITION INITIAL DISCUSSION PEDS TO ADULT TRANSITION INITIAL DISCUSSION [facility] Start: 11-13-2006 HPV VACCINE (1 - 2-d ose series) HPV VACCINE (1 - 2-dose series) [facility] Start: 11-13-2004 HPV VACCINE (1 - 2-d ose series) HPV VACCINE (1 - 2-dose series) [facility] Start: 05-13-1996 COVID-19 Vaccine (#1) COVID-19 Vacci ne (#1) [facility] [employer] Start: 1995 HEPATITIS B (1 of 3 - 3-dose series) HEPATITIS B (1 of 3 - 3-dose series) [facility] Start: 1995 Hepatitis B Vaccine (1 of 3 - 3-dose series) Hepatitis B Vaccine (1 of 3 - 3-dose series) [facility] Start: 1995 Hepatitis C screening Hepatitis C [facility] [employer] Phone: End: 10-26-2021 Basic Metabolic Panel w/ Reflex to MG Basic Metabolic Panel w/ Reflex to MG Lab Routine Daily for 7 Days starting 10/20/2021 until 10/26/2021 [facility] [employer] Phone: Comment on above: Daily for 7 Days sta rting 10/20/2021 until 10/26/2021 End: 10-26-2021 CBC W Auto Differential panel - Blood CBC with Auto Differential Lab Routine Daily for 7 Days starting 10/20/2021 until 10/26/2021, 1 completed [employer] Work Phone: Comment on above: Daily for 7 Days sta rting 10/20/2021 until 10/26/2021, 1 completed EKG 12 Lead EKG 12 Lead ECG Routine 10/19/2021 5:55 PM EDT [employer] Work Phone: End: 10-29-2022 EPIL AMBULATORY EEG EPIL AMBULATORY EEG NEUROLOGY Routine Psychogenic nonepileptic seizure Spells of trembling 1 Occurrences starting 10/29/2021 until 10/29/2022 [facility] Work Phone: Comment on above: 1 Occurrences starti ng 10/29/2021 until 10/29/2022 End: 10-26-2022 EPIL EEG LEAD PLACEMENT EPIL EEG LEAD PLACEMENT NEUROLOGY Routine Seizure-like activity (HCC) 1 Occurrences starting 10/26/2021 until 10/26/2022 [facility] Work Phone: Comment on above: 1 Occurrences starti ng 10/26/2021 until 10/26/2022 End: 11-08-2022 EPIL EEG ROUTINE EPIL EEG ROUTINE NEUROLOGY Routine Seizure-like activity (HCC) 1 Occurrences starting 11/08/2021 until 11/08/2022 [facility] Work Phone: Comment on above: 1 Occurrences starti ng 11/08/2021 until 11/08/2022 EPIL VEEG ADMIT TO EMU/PMU EPIL VEEG ADMIT TO EMU/PMU NEUROLOGY Routine Seizure-like activity (HCC) Ordered: 10/26/2021 [facility] Work Phone: Comment on above: Ordered: 10/26/2021 Oxygen therapy [[facility] Data Set] Initiate Oxygen Therapy Protocol Respiratory Care Routine As Needed until discontinued starting 10/19/2021 [employer] Work Phone: Comment on above: As Needed until disc ontinued starting 10/19/2021 [facility] Immunizations Immunization Date Immunization Notes Care Provider Preethi black 12-08-2017 influenza virus vacc ine, unspecified formulation Suzan Driver APRN.[employer]EMENTER [employer] Work Phone: [facility] Payers Date Payer Category Payer Self-pay 2017 Medicaid [place] [employer] [place] [employer] [id number] 2017-Present Medicaid [id number] 2013 Medicaid [id number] 2011 Unknown 1995 Unknown [id number] 2.16.840.1.269756.3.579.2.173 1995 Unknown [id number] 2.16.840.1.802822.3.579.2.175 1995 Unknown [id number] 2.16840.1.530288.3.579.2.727 1995 Unknown [id number] 2.16840.1.656838.3.579.2.593 1995 Unknown [id number] 2.16.840.1.587780.3.579.2.593 1995 Unknown [id number] 2.16.840.1.099225.3.579.2.593 1995 Unknown [id number] 2.16.840.1.243404.3.579.2.593 1995 Unknown [id number] 2.16.840.1.187080.3.579.2.593 1995 Unknown [id number] 2.16.840.1.018440.3.579.2.593 1995 Unknown [id number] 2.16.840.1.977282.3.579.2.593 1995 Unknown [id number] 2.16.840.1.668249.3.579.2.593 1995 Unknown [id number] 2.16.840.1.995727.3.579.2.593 1995 Unknown [id number] 2.16.840.1.418920.3.579.2.593 1995 Unknown [id number] 2.16.840.1.726863.3.579.2.593 1995 Unknown [id number] 2.16.840.1.015169.3.579.2.593 1995 Unknown [id number] 2.16.840.1.824303.3.579.2.593 1995 Unknown [id number] 2.16.840.1.917791.3.579.2.593 1995 Unknown [id number] 2.16.840.1.551225.3.579.2.593 1995 Unknown [id number] 2.16.840.1.249645.3.579.2.593 1995 Unknown [id number] 2.16.840.1.329423.3.579.2.593 1995 Unknown [id number] 2.16.840.1.486823.3.579.2.593 1995 Unknown [id number] 2.16.840.1.816041.3.579.2.593 1995 Unknown [id number] 2.16.840.1.859598.3.579.2.593 1995 Unknown [id number] 2.16.840.1.173662.3.579.2.593 1995 Unknown [id number] 2.16.840.1.899475.3.579.2.593 1995 Unknown [id number] 2.16.840.1.350097.3.579.2.9 1995 Unknown [id number] 2.16.840.1.252646.3.579.2.1259 1995 Unknown [id number] 2.16.840.1.438092.3.579.2.9 1995 Unknown [id number] 2.16.840.1.542997.3.579.2.9 1995 Unknown [id number] 2.16.840.1.332852.3.579.2.1259 1959 Unknown [id number] 1.2.840.652198.1.13.239.2.7.3.6 [id number] Social History Date Type Detail Facility Tobacco smoking stat [facility] Unknown if ever smoked [facility] Start: 1995 Sex Assigned At Not on file [facility] Start: 12-24-2020 End: 10-12-2022 Tobacco smoking status VTIS Never smoker [employer] Phone: Start: 12-24-2020 End: 10-12-2022 Tobacco use and exposure Never used [employer] Start: 12-24-2020 Alcohol intake Ex-drinker (finding) [employer] Phone: Start: 10-16-2021 End: 07-28-2022 Exposure to SARS-CoV-2 (event) Not sure [employer] Tobacco smoking stat [facility] Tobacco smoking consumption unknown [facility] Work Phone: Start: 06-23-2022 End: 08-08-2022 History of Social function [facility] Start: 06-23-2022 End: 08-08-2022 Patient Health Questionnaire 2 item (PHQ-2) [Reported] [facility] Adult Depression Screening Assessment 2 [facility] Clinical Notes 12-24-2020 to 04-14-2023 Patient InstructionsBiSuzan grace APRN.[employer] - 04/14/2023 8:30 AM Inocencio Braun RN - 04/14/2023 8:19 AM Johana Jones RN - 04/13/2023 9:39 AM ESTPatient InstructionsAttachments Note Date & Type Note Facility 04-14-2023 Instructions Suzan Driver APRN.[facility] - 04/14/2023 10:49 AM EST Follow up/ [...] refilled without delays. documented in this encounter [facility] 04-14-2023 Note HNO ID: [id number] Author: SUZAN DRIVER APRN.CNP Service: ? 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 Short and linesperson memory, cognition and general fund of knowledge [...] which included preparing to see the patient, [id number] patient care, completing clinical documentation, obtaining and/or reviewing separately obtained history, performing a medically appropriate examination, counseling and educating the patient/family/caregiver, and ordering medications, tests, or procedures. Suzan Driver APRN.CEMENTER [employer] Headache Section [facility] 04-14-2023 Note HNO ID: [id number] Author: INOCENCIO NAIR RN Service: ? Author Type: Registered Nurse Type: Progress Notes Filed: 04/14/2023 11:51 Note Text: Pt in for 3rd day of infusion. Pt rated headache 6/10. Pt has severe nausea and moderate dizziness. Educated pt on medications to be administered. Pt agreed to proceed as ordered. 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 @0915: Patient tearful and c/o PIV site burning and very painful. No infiltration or redness of site noted, Ice-pack placed over PIV site. After a few minutes pt reported the ice-pack did not help and wanted PIV to be removed. PIV site removed. Patient remained very anxious and tearful, and requesting if anything else can be given for anxiety. [facility] BULLDOZER OPERATOR notified. New PIV site started, 2nd dose of Benadryl given for anxiety. 2nd line: Compazine given for severe nausea. Per [facility] BULLDOZER OPERATOR to hold Periactin today as the two doses of Benadryl and Compazine can cause drowsiness. Pts infusion complete, tolerated infusion. Headache 4/10. Pt stated no nausea and moderate dizziness. PIV site removed. Pt discharged from txt room at 1124 via wheelchair to ride in lobby. 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 Short and residential memory, cognition and general [...] which included preparing to see the patient, [id number] patient care, completing clinical documentation, obtaining and/or reviewing separately obtained history, performing a medically appropriate examination, counseling and educating the patient/family/caregiver, and ordering medications, tests, or procedures. Suzan Driver APRN.FADY Headache Section [facility] documented in this encounter [facility] 04-14-2023 History of Presen t illness Narrative Pt in for 3rd day of infusion. Pt rated headache 6/10. Pt has severe nausea and moderate dizziness. Educated pt on medications to be administered. Pt agreed to proceed as ordered. 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 @0915: Patient tearful and c/o PIV site burning and very painful. No infiltration or redness of site noted, Ice-pack placed over PIV site. After a few minutes pt reported the ice-pack did not help and wanted PIV to be removed. PIV site removed. Patient remained very anxious and tearful, and requesting if anything else can be given for anxiety. [facility] BULLDOZER OPERATOR notified. New PIV site started, 2nd dose of Benadryl given for anxiety. 2nd line: Compazine given for severe nausea. Per [facility] BULLDOZER OPERATOR to hold Periactin today as the two doses of Benadryl and Compazine can cause drowsiness. Pts infusion complete, tolerated infusion. Headache 4/10. Pt stated no nausea and moderate dizziness. PIV site removed. Pt discharged from txt room at 1124 via wheelchair to ride in lobby. documented in this encounter [facility] 04-13-2023 Note HNO ID: [id number] Author: JOHANA CANCINO RN Service: ? Author [...] She is working with a psychiatrist in [place] . Voiced stress is her biggest trigger for headaches. 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 I mentioned to patient our reboot program . Patient very interested to learn about it. Message send to our assistant brand manager and Rhina Lim to set up patient for evaluation. 1020 Patient sleeping on and off. Nausea subsiding. Patient declined Zofran. Stated Zofran ineffective. 1050 Infusion complete. Patient slept on and off. Nausea resolved. PINEDA 6/10. Patient verbal , appears sedated . [facility] 04-13-2023 History of Presen t illness Narrative [...] She is working with a psychiatrist in [place] . Voiced stress is her biggest trigger for headaches. 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 I mentioned to patient our reboot program . Patient very interested to learn about it. Message send to our assistant brand manager and Rhina Lim to set up patient for evaluation. 1020 Patient sleeping on and off. Nausea subsiding. Patient declined Zofran. Stated Zofran ineffective. 1050 Infusion complete. Patient slept on and off. Nausea resolved. PINEDA 6/10. Patient verbal , appears sedated . D/c via wheel chair to her in [facility]. documented in this encounter [facility] 04-13-2023 Miscellaneous Notes Patient is currently receiving infusions for headache. She is interested in learning about reboot program. Please schedule for evaluation. Johana Cancino RN documented in this encounter [facility] 04-12-2023 Note HNO ID: [id number] Author: SUZAN DRIVER APRN.[employer] Service: ? 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 Short and linesperson memory, cognition and general fund of knowledge [...] which included preparing to see the patient, [id number] patient care, completing clinical documentation, obtaining and/or reviewing separately obtained history, performing a medically appropriate examination, counseling and educating the patient/family/caregiver, and ordering medications, tests, or procedures. Suzan Driver APRN.[employer] Headache Section [facility] 04-12-2023 Note HNO ID: [id number] Author: SUZAN JEFF RN Service: ? Author [...] vs oral periactin for sedation. Rhina Driver BULLDOZER OPERATOR updated and agreeable. PIV started on 3rd [...] dizziness. Pt discharged from treatment room with bulk truck driver via wheelchair due to effects from oral medications. 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 Short and linesperson memory, cognition and general fund of knowledge [...] which included preparing to see the patient, smjq-vg-wibc patient care, completing clinical documentation, obtaining and/or reviewing separately obtained history, performing a medically appropriate examination, counseling and educating the patient/family/caregiver, and ordering medications, tests, or procedures. Suzan Driver APRN.FADY Headache Section [facility] documented in this encounter [facility] 04-12-2023 History of Presen t illness Narrative 1105 Patient in for first day of IV infusions. Patient rated headache 8/10. Patient stated severe nausea and mild dizziness. Patient educated on medications to be administered. Patient verbalized understanding and agreed to proceed with infusions. Patient requested the PRN IV Benadryl vs oral periactin for sedation. Rhina Driver BULLDOZER OPERATOR updated and agreeable. PIV started on 3rd [...] dizziness. Pt discharged from treatment room with bulk truck driver via wheelchair due to effects from oral medications. documented in this encounter [facility] 04-12-2023 Instructions Suzan Driver APRN.[employer] - 04/12/2023 11:52 AM EST General Headache [...] much light. These can be obtained at [employer] or [employer]: see list below. 2. Limit use of acute treatments (osli-tuk-ujpqwqh medications, triptans, etc.) to no more than [...] and quiet environment. Relax and reduce stress. Fovvtfa9Nfsyp is a free andrzej that can instruct you on some simple relaxtion and breathing techniques. Http://Evoinfinity is a free website that provides teaching [...] ensuing treatment plans will be released via MeMeMe and discussed during your follow-up appointment. Follow-up appointments are primarily provided by the Nurse Practitioners and Physician s Assistants in order to provide timely, accessible care. MeMeMe: Please ask the schedulers to give you an activation code. The main way of communication is by Dashwirehart rather than phone lines, so if you have not signed up, please do so. MeMeMe is also the way that you can review your labs and testing. We are not able to contact everyone to tell them results are normal. If you do not hear back from us regarding testing you have had, it should be considered normal or within normal range. If you have any questions about the results, you are free to message us. MeMeMe is meant for simple questions regarding medications, possible side effects, or other simple straight forward questions in limited sentences, rather than multiple paragraphs of discussion. MeMeMe is not meant for, or efficient for these complex questions, extensive questions, extensive medication adjustments, complex new symptoms or concerns. These issues beyond simple questions require a follow up visit with myself, one of our physician assistants, nurse practitioners, or a Virtual Visit via computer or smart phone, as detailed further down. Please contact [employer] if you are having issues with MeMeMe or logging in to your virtual visit appointment. You can reach them at [phone] Refills: Please pay attention to when your [...] pepperoni, Pickled reynoso Pods of broad carmona (South Sudanese beans, Wallisian pea pods, Ugandan (jc) beans, frazier and navy beans Ripe [...] convincingly provoke headaches. documented in this encounter [facility] 04-03-2023 Miscellaneous Notes Ambulatory Pharmacy Prior Authorization Note Provider Intervention Required?: No- Pharmacy completed on your behalf. Rx Plan: Medicaid MCO ([facility]) Drug: Aimovig 70MG/ML auto-injectors Cover My Meds Chong: [id number] Determination: Approved Prior Authorization/Case #: n/a Prior [...] refills. Prescriptions will now be processed through [facility] for determination of next steps. For questions relating to this submission, please contact [facility] at [phone] [facility] received prescription(s) for Aimovig 70MG/ML auto-injectors . Benefits investigation was conducted, indicating that a prior authorization is required. PA was initiated and pending review through 9+. All pertinent clinical information was submitted to insurance. CM Chong: [id number] Ordering Provider: Logan Barth APRN.[employer] Angely Cotton RN [facility] P: , F: documented in this encounter [facility] 03-23-2023 Note HNO ID: [id number] Author: LOGAN BARTH APRN.FADY Service: ? Author [...] visit. Either the patient or their legal promotional representative has been informed of the risks [...] XL, Qudexy) Anti-Depressant and Antipsychotic Amitriptyline (Elavil) Hector (Eskalith, Lithobid) Nortriptyline (Pamelor, Aventyl) Anti-Migraine Dihydroergotamine [...] ZOLMitriptan (ZOMIG) 5 mg nasal sprayUse 1 Jber in the nose as needed at onset [...] Rfl: lamoTRIgine (LAMICTAL) (more content not included)... [facility] 03-22-2023 Note HNO ID: [id number] Author: SUZAN DRIVER APRN.FADY Service: ? Author Type: Nurse Practitioner Type: Progress Notes Filed: 03/22/2023 16:40 Note Text: Headache Center - Virtual Visit Infusion Triage This visit was conducted as a virtual visit, with patient's permission, via Zoom. It required patient-provider interaction for the medical decision making as documented below. Patient stated name and Patient location [place] I have communicated my name and active licensure. The patient's identity and physical location were verified at the time of this visit. Either the patient or their legal promotional representative has been informed of the risks [...] XL, Qudexy) Anti-Depressant and Antipsychotic Amitriptyline (Elavil) Hector (Eskalith, Lithobid) Nortriptyline (Pamelor, Aventyl) Anti-Migraine Dihydroergotamine [...] ZOLMitriptan (ZOMIG) 5 mg nasal sprayUse 1 Jber in the nose as needed at onset [...] keTORolac (TORADOL) 1 (more content not included)... [facility] 12-13-2022 Miscellaneous Notes Images from the original note were not included. Called patient to schedule for 3 days of Non DHE IV infusions. She started she was currently driving and would call back to schedule Logan Barth APRN.[employer]IL WE[employer] P Headache Infusion Scheduling Pool; P C21 Botox Pool Pls schedule for infusions, and also her next botox treatment - thank you. KG documented in this encounter [facility] 12-13-2022 Miscellaneous Notes PA submitted through CoverMyMeds for Orphenadrine Citrate ER 100mg. Chong Code: [id number] documented in this encounter [facility] 12-12-2022 Note HNO ID: [id number] Author: Logan Barth APRN.FADY Service: ? Author [...] visit. Either the patient or their legal promotional representative has been informed of the risks [...] XL, Qudexy) Anti-Depressant and Antipsychotic Amitriptyline (Elavil) Hector (Eskalith, Lithobid) Nortriptyline (Pamelor, Aventyl) Anti-Migraine Dihydroergotamine [...] ZOLMitriptan (ZOMIG) 5 mg nasal sprayUse 1 Jber in the nose as needed at onset of migraine headache. If symptoms persist or return, may repeat dose in other nostril after 2 hours. Maximum of 2 sprays per 24 hoursDisp: 10 EachRfl: 2 lamoTRIgine (LAMICTAL) 150 mg tabletDisp: Rfl: diazePAM (VALIUM) 10 mg tabletDisp: Rfl: I have reviewed the Hea (more content not included)... [facility] 12-09-2022 Miscellaneous Notes Patient would also [...] Name: Emory Reilly documented in this encounter [facility] 11-11-2022 Note HNO ID: [id number] Author: Suzan Driver APRN.[employer] Service: ? Author Type: Nurse Practitioner Type: [...] symptoms have resolved. Suzan Driver APRN.FADY [facility] 11-11-2022 History of Presen t illness [...] d/c since symptoms have resolved. Suzan Driver APRN.CEMENT[employer]IL WELL 0824: Patient in for first day of IV infusions. Patient rated headache 8/10. Patient stated severe nausea and severe dizziness. Patient educated on medications to be administered. Patient verbalized understanding and agreed to proceed with infusions. 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 She would like PRN benadryl for [...] with it. Message sent to Suzan Driver BULLDOZER OPERATOR to update. Benadryl hypersensitivity released and administered. Pt also very nauseated. PRN zofran administered. 1050: Pt fell back asleep. Woke pt up and she she stated relief from all itching. Denies any other symptoms/side effects at this time. Pts infusions complete. Pt rated headache 7/10. Pt stated mild nausea and denied dizziness. 1055: Suzan Driver BULLDOZER OPERATOR in txt room to see patient. 1105: [...] Driver NP notified. documented in this encounter [facility] 11-11-2022 Note HNO ID: [id number] Author: Coretta Quintanilla RN Service: ? Author Type: Registered Nurse Type: Progress Notes Filed: 11/11/2022 11:27 AM Note Text: 0824: Patient in for first day of IV infusions. Patient rated headache 8/10. Patient stated severe nausea and severe dizziness. Patient educated on medications to be administered. Patient verbalized understanding and agreed to proceed with infusions. 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 She would like PRN benadryl for [...] with it. Message sent to Suzan Driver BULLDOZER OPERATOR to update. Benadryl hypersensitivity released and administered. Pt also very nauseated. PRN zofran administered. 1050: Pt fell back asleep. Woke pt up and she she stated relief from all itching. Denies any other symptoms/side effects at this time. Pts infusions complete. Pt rated headache 7/10. Pt stated mild nausea and denied dizziness. 1055: Suzan Driver BULLDOZER OPERATOR in txt room to see patient. 1105: Pt discharged from treatment room via wheelchair due to drowsiness to her significant other. 1110: When cleaning chair after pt left, white pill found in chair. Tablet identified as baclofen. During initial assessment, after reviewing home medication list, pt denied any other medications missing from the list. Baclofen not listed on home medication list. Suzan Driver BULLDOZER OPERATOR notified. [facility] 11-10-2022 Note HNO ID: [id number] Author: Ольга Aguilar APRN.[employer] Service: ? Author Type: Nurse Practitioner Type: Progress Notes Filed: 11/10/2022 1:58 PM Note Text: Headache Center - Virtual Visit Infusion Triage This visit was conducted as a virtual visit, with patient's permission, via ZOOM. It required patient-provider interaction for the medical decision making as documented below. Patient stated name and Patient location [facility] I have communicated my name and active licensure. The patient's identity and physical location were verified at the time of this visit. Either the patient or their legal promotional representative has been informed of the risks [...] NS New health events/diagnosis since last visit (NV/stroke/DM/HTN/etc): no Cardiovascular risk factors: none Past infusion [...] Lymph 1.00 - 4.00 k/uL 0.84 (L) Union% % 0.7 Abs Union <0.87 k/uL 0.06 Eosin% % 0.1 Abs [...] 2.7 TSH 0.270 - 4.200 mIU/L 0.537 Hector 0.6 - 1.2 mmol/L 0.1 (L) Analgesic Ketorolac (Toradol) Anti-Convulsant Lamotrigine (Lamictal) Topiramate (Topamax, Trokendi XL, Qudexy) Anti-Depressant and Antipsychotic Amitriptyline (Elavil) Hector (Eskalith, Lithobid) Nortriptyline (Pamelor, Aventyl) Anti-Migraine Dihydroergotamine [...] as need (more content not included)... [facility] 11-10-2022 History of Presen t illness [...] visit. Either the patient or their legal promotional representative has been informed of the risks [...] NS New health events/diagnosis since last visit (NV/stroke/DM/HTN/etc): no Cardiovascular risk factors: none Past infusion [...] Lymph 1.00 - 4.00 k/uL 0.84 (L) Union% % 0.7 Abs Union <0.87 k/uL 0.06 Eosin% % 0.1 Abs [...] 2.7 TSH 0.270 - 4.200 mIU/L 0.537 Hector 0.6 - 1.2 mmol/L 0.1 (L) Analgesic Ketorolac (Toradol) Anti-Convulsant Lamotrigine (Lamictal) Topiramate (Topamax, Trokendi XL, Qudexy) Anti-Depressant and Antipsychotic Amitriptyline (Elavil) Hector (Eskalith, Lithobid) Nortriptyline (Pamelor, Aventyl) Anti-Migraine Dihydroergotamine [...] ZOLMitriptan (ZOMIG) 5 mg nasal spray^Use 1 Jber in the nose as needed at onset [...] these with the patient: yes Ольга Aguilar APRN.[employer] WELL HEADACHE SCORES: Headache Questions 06/24/2022 08/31/2022 09/12/2022 [...] in rate, volume and articulation. Short and residential memory, cognition and general [...] 25 minutes Ольга Aguilar APRN.CNP Headache Section [facility] November 10, 2022 documented in this encounter [facility] 11-10-2022 Miscellaneous Notes PATIENT SCHEDULED FOR TRIAGE [...] get infusions scheduled. Number to return call [phone] Okay to leave a message ? Yes Last office visit 10/12/22 with Uche Next office visit Not scheduled. Thank you calling [facility] [place]. You will receive a return call within 48 hours ( or 2 business days if close to the weekend). If you feel that this is an urgent issue and needs immediate attention, it is recommended that you contact your primary care provider office or proceed to your nearest Urgent Care Center of Emergency Room ED for evaluation/treatment. documented in this encounter [facility] 10-12-2022 Note HNO ID: [id number] Author: Suzan Driver APRN.[employer] Service: ? Author Type: Nurse Practitioner Type: [...] which included preparing to see the patient, lvuf-ac-btas patient care, completing clinical documentation, obtaining and/or reviewing separately obtained history, performing a medically appropriate examination, counseling and educating the patient/family/caregiver, and ordering medications, tests, or procedures. Suzan Driver APRN.CEMENT[employer]IL WELL BOTOX PROCEDURE VISIT [place] Toxin A [...] for migraine Informed Consent Consent Obtained: Written [place] Protocol A moment to CARE was completed [...] No medicat (more content not included)... [facility] 10-12-2022 Note HNO ID: [id number] Author: Suzan Driver APRN.C[employer] WELL Service: ? Author Type: Nurse Practitioner Type: [...] impact) 72 (Severe impact) 78 (Severe impact) OIMD - 2/7 SCORES 06/24/2022 08/08/2022 09/12/2022 OMID-2 [...] for migraine Informed Consent Consent Obtained: Written [place] Protocol A moment to CARE was completed [...] (Sites) Right (Units) Right (Sites) TOTAL (Units) Office Services Specialist 5 1 5 1 10 Procerus [...] XL, Qudexy) Anti-Depressant and Antipsychotic Amitriptyline (Elavil) Hector (Eskalith, Lithobid) Nortriptyline (Pamelor, Aventyl) Anti-Migraine Naratriptan (Amerge) Sumatriptan (Imitrex, Sumavel) Zolmitriptan (Zomig) Blood Pressure Propranolol (Inderal) MABs Fremanezumab (Ajovy) Supplements Magnesium Suzan Driver, UMANG.CEMENTER [employer]IL WELL Headache Section [facility] October 12, 2022 [facility] 10-06-2022 Miscellaneous Notes Ambulatory Pharmacy Prior Authorization Note Provider Intervention Required?: No- Pharmacy completed on your behalf. Rx Plan: Medicaid [facility] ([facility]) Drug: Zomig 5MG nasal spray Cover My Meds Chong: [id number] Determination: Approved Prior Authorization/Case #: n/a Prior [...] refills. Prescriptions will now be processed through [facility] for determination of next steps. For questions relating to this submission, please contact [facility] at [phone] [facility] received prescription(s) for Zomig 5MG nasal spray . Benefits investigation was conducted, indicating that a prior authorization is required. PA was initiated and pending review through 9+. All pertinent clinical information was submitted to [facility]. [facility] Chong: [id number] Ordering Provider: Logan Barth APRN.CEMENT[employer]IL WELL Angely Cotton RN [facility] P: , F: documented in this encounter [facility] 09-28-2022 Miscellaneous Notes Patient last seen on 09/12/22. documented in this encounter [facility] 09-12-2022 Note HNO ID: [id number] Author: Logan Barth APRN.FADY Service: ? Author Type: Nurse Practitioner Type: Progress Notes Filed: 09/12/2022 9:35 AM Note Text: Headache Center - Follow up Virtual Visit During this COVID-19 pandemic, patient's headache clinic evaluation was scheduled as a virtual visit using the following platform Zoom - patient currently located in [place] Coni Nicholson was identified by name and [...] visit. Either the patient or their legal promotional representative has been informed of the risks [...] XL, Qudexy) Anti-Depressant and Antipsychotic Amitriptyline (Elavil) Hector (Eskalith, Lithobid) Nortriptyline (Pamelor, Aventyl) Anti-Migraine Naratriptan [...] (ZOMIG) 5 mg nasal spray Use 1 Jber in the nose as needed. SPRAY IN 1 NOSTRIL AT ONSET OF MIGRAINE HEADACHE. If symptoms persist or return, may repeat dose after 2 hours. Maximum: 5 mg/dose; 10 mg per 24 hours lamoTRIgine (LAMICTAL) 150 mg tablet diazePAM (VALIUM) 10 mg tablet I have reviewed the Health Status Assessment responses and discussed these with the patient: yes Logan Barth APRN.C[employer] WELL HEADACHE SCORES: Headache Questions 06/24/2022 08/31/2022 09/12/2022 [...] light sensit (more content not included)... [facility] 08-31-2022 Note HNO ID: [id number] Author: Logan Barth APRN.FADY Service: ? Author Type: Nurse Practitioner Type: Progress Notes Filed: 08/31/2022 3:44 PM Note Text: Headache Center - Follow up Virtual Visit During this COVID-19 pandemic, patient's headache clinic evaluation was scheduled as a virtual visit using the following platform Zoom - patient currently located in [place] Coni Nicholson was identified by name and [...] visit. Either the patient or their legal promotional representative has been informed of the risks [...] She has been seeing one of the BULLDOZER OPERATOR's. It sounds like the plan is Emgality and Zomig nasal spray but it has been 2 months and she still hasn't heard about whether it has been approved. Has infusions which helped some. [place] keppra worked the best. Has an appt with BULLDOZER OPERATOR in a week. I will give ewara today until she can find out where [...] XL, Qudexy) Anti-Depressant and Antipsychotic Amitriptyline (Elavil) Hector (Eskalith, Lithobid) Nortriptyline (Pamelor, Aventyl) Anti-Migraine Naratriptan [...] (ZOMIG) 5 mg nasal spray Use 1 Jber in the nose as needed. SPRAY IN [...] these with the patient: yes Logan Barth APRN.C[employer] WELL HEADACHE SCORES: H (more content not included)... [facility] 08-31-2022 History of Presen t illness Narrative Headache Center - Follow up Virtual Visit During this ID- pandemic, patient's headache clinic evaluation was scheduled as a virtual visit using the following platform Zoom - patient currently located in [facility] was identified by name and and consented [...] visit. Either the patient or their legal promotional representative has been informed of the risks [...] She has been seeing one of the BULLDOZER OPERATOR's. It sounds like the plan is Emgality and Zomig nasal spray but it has been 2 months and she still hasn't heard about whether it has been approved. Has infusions which helped some. [place] keppra worked the best. Has an appt with BULLDOZER OPERATOR in a week. I will give ewara today until she can find out where [...] XL, Qudexy) Anti-Depressant and Antipsychotic Amitriptyline (Elavil) Hector (Eskalith, Lithobid) Nortriptyline (Pamelor, Aventyl) Anti-Migraine Naratriptan [...] (ZOMIG) 5 mg nasal spray Use 1 Jber in the nose as needed. SPRAY IN [...] these with the patient: yes Logan Barth APRN.CEMENT[employer]IL WELL HEADACHE SCORES: Headache Questions 06/24/2022 08/31/2022 ER [...] spontaneous and fluent without dysarthria. Short and linesperson memory, cognition and general fund of knowledge [...] XL, Qudexy) Anti-Depressant and Antipsychotic Amitriptyline (Elavil) Hector (Eskalith, Lithobid) Nortriptyline (Pamelor, Aventyl) Blood Pressure [...] Service: Virtual Visit 30 minutes Logan Barth APRN.FADY Headache Section [facility] August 31, 2022 documented in this encounter [facility] 08-11-2022 Miscellaneous Notes Patient just completed 3 days of Infusions 07/27, 07/28, and 07/29. She is also scheduled for a follow up on 08/16. Would you like me to try to move her appt sooner? Patient last seen on 08/08/22. documented in this encounter [facility] 08-10-2022 Miscellaneous Notes Message left on identified voice mail box requesting name of medication patient is attempting to parts picker. Vida Vazquez RN August 10, 2022 10:01 AM documented in this encounter [facility] 08-08-2022 Note HNO ID: [id number] Author: Jesse Wharton MD Service: ? Author Type: Physician Type: Progress Notes Filed: 08/08/2022 3:22 PM Note Text: VV I have communicated my name and active licensure. The patient's identity and physical location were verified at the time of this visit. Either the patient or their legal promotional representative has been informed of the risks and benefits of -- and alternatives to -- treatment through a remote evaluation and consents to proceed with the evaluation remotely. Pt that I saw once 9 or so months ago. At the time, did not need preventative med. Since, the PINEDA's have worsened. She has been seeing one of the BULLDOZER OPERATOR's. It sounds like the plan is Emgality and Zomig nasal spray but it has been 2 months and she still hasn't heard about whether it has been approved. Has infusions which helped some. [place] keppra worked the best. Has an appt with BULLDOZER OPERATOR in a week. I will give keppra today until she can find out where emgality and zomig stand. Answered all questions. Jesse Wharton MD Time spent: 18 mins (10 mins direct pt contact) [facility] 08-08-2022 History of Presen t illness Narrative VV I have communicated my name and active licensure. The patient's identity and physical location were verified at the time of this visit. Either the patient or their legal promotional representative has been informed of the risks and benefits of -- and alternatives to -- treatment through a remote evaluation and consents to proceed with the evaluation remotely. Pt that I saw once 9 or so months ago. At the time, did not need preventative med. Since, the PINEDA's have worsened. She has been seeing one of the BULLDOZER OPERATOR's. It sounds like the plan is Emgality and Zomig nasal spray but it has been 2 months and she still hasn't heard about whether it has been approved. Has infusions which helped some. [place] keppra worked the best. Has an appt with BULLDOZER OPERATOR in a week. I will give keppra today until she can find out where emgality and zomig stand. Answered all questions. Jesse Wharton MD Time spent: 18 mins (10 mins direct pt contact) documented in this encounter [facility] 07-29-2022 Note HNO ID: [id number] Author: Leonie Whitaker RN Service: ? Author [...] hands also appear swollen. Eloina Knight APRN. CEMENTER [employer]IL WELL in infusion room to assess patient . No change to therapy plan and advises patient to schedule follow up. Patient requesting second dose of IV benadryl for anxiety. 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 IV removed and patient discharged from infusion room to bulk truck driver [facility] 07-29-2022 Note HNO ID: [id number] Author: Eloina Knight APRN.CNP Service: ? Author [...] Eloina Knight APRN.CNP July 29, 2022 [facility] 07-28-2022 Note HNO ID: [id number] Author: Leonie Whitaker RN Service: ? Author [...] to the infusion. 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 IV removed and patient discharged from infusion room [facility] 07-28-2022 History of Presen t illness Narrative Patient in for day 2 of infusion therapy. Patient rated headache pain 10 out of 10. Patient has severe nausea and moderate dizziness. Education was provided for the patient on medications and treatment plan for the day. The patient verbalized understanding and agreed to the infusion. 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 IV removed and patient discharged from infusion room documented in this encounter [facility] 07-27-2022 Note HNO ID: [id number] Author: Coretta Quintanilla, RN Service: ? Author [...] patient's allergy/intolerance list and provider notified. [facility] 07-27-2022 Note HNO ID: [id number] Author: Misty West APRN.CNP Service: ? Author Type: Nurse Practitioner Type: Progress Notes Filed: 07/28/2022 12:11 PM Note Text: Margaret L Nicholson presents today for day 1 of three days of IV infusions. Current Treatment Plan: DHE Vital Signs: BP 117/81 Pulse 71 Additional Concerns: Could not tolerate DHE Follow up: for IV infusion 07/28/2022 Misty West APRN.CNP July 27, 2022 [facility] 06-27-2022 Miscellaneous Notes Images from the original note were not included. Spoke to patient about scheduling infusions. Patient would like to callback once she can figure out transportation. Logan Barth APRN.CNP P Headache Infusion Scheduling Pool Please sched for infusions - therapy plan placed. Logan Barth APRN.CNP documented in this encounter [facility] 06-24-2022 Note HNO ID: [id number] Author: Logan Barth APRN.CNP Service: ? Author Type: Nurse Practitioner Type: Progress Notes Filed: 07/27/2022 8:24 AM Note Text: Headache Center - Follow up Virtual Visit During this COVID-19 pandemic, patient's headache clinic evaluation was scheduled as a virtual visit using the following platform Zoom - patient currently located in [place] Margaret Nicholson was identified by name and [...] visit. Either the patient or their legal promotional representative has been informed of the risks [...] states that her headaches are much worse. Ykone message 06/13: I was recently admitted to the [facility] for a horrible migraine I need [...] XL, Qudexy) Anti-Depressant and Antipsychotic Amitriptyline (Elavil) Hector (Eskalith, Lithobid) Nortriptyline (Pamelor, Aventyl) Anti-Migraine Naratriptan [...] not shake. (more content not included)... [facility] 06-14-2022 Miscellaneous Notes Spoke with patient [...] 2022 1:29 PM documented in this encounter [facility] 06-14-2022 Miscellaneous Notes NI PHONE Name of [...] admitted to the ER couple times in [facility] and all her medication is not working. Patient scheduled to see Dr. Wharton on 07/25 and she's on a wait list for sooner appts. Number to return call [phone] Corina Thorpe I called and spoke to Margaret and scheduled her follow up for the first available virtual visit in July and placed it on the wait list for a sooner appointment. documented in this encounter [facility] 12-21-2021 Miscellaneous Notes Spoke with patient - [...] 2021 9:01 AM documented in this encounter [facility] 12-03-2021 History of Presen t illness Narrative Dictation completed. Of note, she feels her neck hurts all of the time but I do not see that on the exam today. Jesse Wharton MD documented in this encounter [facility] 11-10-2021 History of Presen t illness Narrative [facility] [place] [facility] VIRTUAL VISIT Patient Name: Margaret [...] complains memory issues/vision issues. OSH admission documentation ([facility], [place]) ADMISSION DATE: 10/19/21 DISCHARGE DATE: 10/20/21 Patient [...] November 10, 2021 documented in this encounter [facility] 11-09-2021 Miscellaneous Notes [facility]vv 10/29/2021 Dr Dolan PLAN: -Patient agreed to have 3 days home Video EEG ([facility]) to confirm the diagnosis of PNES (patient needs to be at home with her 4 kids all have special needs). -Discussed treatment of PNES with specialized CBT at [facility] psychology program. -No driving Patient agreed Consult headache center for headache. Continue to follow up local psychiatrist/conseling for mood disorder, anxiety and PTSD. documented in this encounter [facility] 11-08-2021 Miscellaneous Notes Order placed. Nelly Saldaña PA-C Good Afternoon, Dr. Dolan placed an [facility] Ambulatory EEG for the patient. In order to send over the order to [facility] the patient will need an Routine EEG order on file. Can someone please assist with placing the order? Thank you, Chucky documented in this encounter [facility] 10-29-2021 History of Presen t illness Narrative [facility] [facility] Patient Name: Margaret Nicholson Date [...] complains memory issues/vision issues. OSH admission documentation ([facility], [place]) ADMISSION DATE: 10/19/21 DISCHARGE DATE: [...] treatment of PNES with specialized CBT at [facility] psychology program. -No driving Patient agreed [...] Dolan MD PhD Staff, Epilepsy Center [facility] [place], [place] Primary Care Physician: Maria Del Rosario Lynn (Historical) Jose Antonio (Inactive) No address on file Referring Physician: SELF Ms. Margaret Nicholson [address] [place] [address] documented in this encounter [facility] 10-26-2021 History of Presen t illness Narrative [facility] Epilepsy Center Review of Records Patient: Margaret Nicholson Address: [address] [place] [address] Impression: Review of records for Margaret Nicholson, [...] cholecystectomy, caesarean , tubal ligation PRIOR EVALUATIONS: [place] [address] Video EEG ([facility], 10/19/2021-10/20/2021): Normal continuous video-EEG. The events that were captured did not correlate with epileptic seizures. No epileptiform discharges were identified. MRI brain wo/w contrast ([facility], 10/19/2021): Unremarkable MRI of the brain ANDRZEJ Recommendations: - Admit to EMU for VEEG monitoring, diagnostic evaluation Location: Main [place] - Visit with epileptologist prior to admission - Additional testing to be considered by epilepsy clinicians Signed: Geri Madera APRN.[employer] October 26, [address] Storey for review and recommendations. --------- MD Recommendations (as discussed with Dr. Storey): - Please proceed with the above plan. Please route this encounter to the EMU Scheduling Pool ( P EMU ) or PMU Scheduling Pool ( P PMU ) through LOS & Follow up PHASE 1.0 AND 1.5 ORDER SYNOPSIS Patient: Margaret Nicholson ([id number]) Best contact number: [phone] Insurance: No coverage found. Scheduling Team: Please call for adult patients: Mendoza Torres ([phone]) Chucky Cantor ([phone]) Fabiola Sharpe([phone]) Nikkie Mahajan([phone]) Please call for pediatric patients: Chucky Cantor ([phone]) Fabiola Sharpe ([phone]) Mendoza Torres ([phone]) Nikkie Mahajan([phone]) Appointments and Tests PRE-PROCEDURE & PRE-OPERATIVE COVID [...] off/on office visits. documented in this encounter [facility] 10-20-2021 Hospital Discharg e instructions UMANG Garcia [...] sent through Care Everywhere.Non-Epileptic Seizure: General Info (South Sudanese)documented in this encounter [employer] Phone: 10-20-2021 History of Presen t illness [...] hysterectomy who presented as a transfer from [facility] for seizure like episodes. Per [...] [facility] ED, GCS 12. Per documentation, patient had at least 13 seizure like episodes, lasting 10-60 seconds, described as grand mal. She was given 10mg Valium IV, 1g Keppra IV, 720mg Phenobarbital IV. CT Head without contrast unremarkable. Labs unremarkable including normal TSH, lactic, negative UA. Transferred to [facility] Neuro ICU for further management. Per [...] brain mass recently (last 6 months) at [facility] and is supposed to have a brain biopsy in November 2021. Patient recently saw Dr. Vicky De Dios ([facility] Neu[facility]) on 08/06/21 for migraines and [...] On arrival to the Neuro ICU, Adrienne (FACTORY FOCUS TECHNICIAN) witnessed two brief (~10 seconds) episodes [...] with patient and mom. Records requested from [facility] where patient states she was [...] hysterectomy who presented as a transfer from [facility] for seizure like episodes. NEUROLOGIC: - [...] UMANG Garcia CNP Neuro Critical Care Pager [phone] 10/20/2021 6:49 AM ALTM is running. Pt [...] at 100%. documented in this encounter [employer] Phone: 10-01-2021 Note DISCHARGE SUMMARY DISCHARGE DATE: [...] pain free and no longer on narcotics. [facility] 10-01-2021 Note OPERATIVE NOTE OPERATION DATE: 10/01/2021 PROCEDURE: Total abdominal hysterectomy with partial bilateral salpingectomy with cystoscopy. PREOPERATIVE DIAGNOSIS: Menorrhagia, dysmenorrhea, dyspareunia, pelvic pain. POSTOPERATIVE DIAGNOSIS: Menorrhagia, dysmenorrhea, dyspareunia, pelvic pain. ANESTHESIA: General. SURGEON: Zay Blas D.O. [employer] ADVISOR: VERNA Yap URINE OUTPUT: Yellow and clear. [...] Recovery Room in stable condition. ?? [facility] 08-14-2021 Note PROCEDURE: US PELVIS TRANSVAG, [...] authenticated by: NICOLE MEDELLIN Date: 2021-08-14 10:19 [facility] 12-24-2020 Hospital DischVielka Luis DO - 12/24/2020 Continue all home medications as prescribed. Follow up with your family doctor and neurologist. Return to the emergency department for new, worsening or worrisome symptoms. documented in this encounter [employer] Phone: Evaluation note Diagnosis Migraine without status migrainosus, not intractable, unspecified migraine type- Primary documented in this encounter [employer] Phone: evaluation note* Diagnosis Seizure-like activity (HCC)- Primary Other convulsions Seizure disorder (HCC) Unspecified epilepsy without mention of intractable epilepsy Psychogenic nonepileptic seizure documented in this encounter JEREMIAH BURR[facility] [employer] Phone: evaluation note* Diagnosis Seizure-like activity (HCC)- Primary Other convulsions [facility] Diagnosis Psychogenic nonepileptic seizure- Primary Spells [...] with status migrainosus [facility] Diagnosis Chronic migraine without aura, with intractable migraine, so stated, with status migrainosus- Primary 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 with status migrainosus Chronic migraine without aura, with intractable migraine, so stated, with status migrainosus 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 with status migrainosus- Primary Chronic migraine without aura, with intractable migraine, so stated, with status migrainosus [facility] Diagnosis 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 with status migrainosus- Primary Chronic migraine without aura, with intractable migraine, so stated, with status migrainosus 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 without status migrainosus Chronic migraine without aura, with intractable migraine, so stated, without mention of status migrainosus [facility] Diagnosis Chronic migraine without aura, with intractable migraine, so stated, with status migrainosus- Primary 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 with status migrainosus Chronic migraine without aura, with intractable migraine, so stated, with status migrainosus [facility] Outpatient Procedure (Routine) - Pending Review Specialty Diagnoses / Procedures Referred By Sushma veloz Referred To [facility] Diagnoses Seizure-like activity (HCC) Procedures EPIL EEG LEAD PLACEMENT EEG EXTENDED MONITORING 61-119 MINUTES ELECTROENCEPHALOGRAM REC COMA/SLEEP ONLY Geri Madera APRN.CNP [address] [place] [address] [facility] [address] [place] [address] Referral ID Status Reason Start Date Expiration Date Visits Requested Visits Authorized [id number] Pending Review Auto-Generat ed Referral 10/26/2021 10/26/2022 1 1 [facility] for referral (narrative)* Outpatient Procedure (Routine) - Pending Review Specialty Diagnoses / Procedures Referred By Sushma veloz Referred To [facility] Diagnoses Psychogenic nonepileptic seizure Spells of trembling Procedures EPIL AMBULATORY EEG EEG COMPLETE STD PHYS/QHP&GT;84 HR W/O Tyrone Diaz MD, PhD [address] [place] [id number] [place] [address] Referral ID Status Reason Start Date Expiration Date Visits Requested Visits Authorized [id number] Pending Review Auto-Generat ed Referral 10/29/2021 10/29/2022 1 1 * Outpatient Procedure (Routine) - Pending Review Specialty Diagnoses / Procedures Referred By Contac t Referred To [facility] Diagnoses Psychogenic nonepileptic seizure Spells of trembling Procedures EPIL AMBULATORY EEG EEG COMPLETE STD PHYS/QHP&GT;84 HR W/O Tyrone Diaz MD, PhD [address] [place] [address] [place] [address] Referral ID Status Reason Start Date Expiration Date Visits Requested Visits Authorized [id number] Pending Review Auto-Generat ed Referral 10/29/2021 10/29/2022 1 1 * Consult, Test, Treat (Routine) - Authorized Specialty Diagnoses / Procedures Referred By Contac t Referred To Contact Diagnoses Chronic intractable headache, unspecified headache type Procedures CONSULT TO HEADACHE CLINIC OFFICE/OUTPATIENT NEW HIGH MDM 60-74 MINUTES Tyrone Dolan MD, PhD [address] [address] Referral ID Status Reason Start Date Expiration Date Visits Requested Visits Authorized [id number] Authorized PCP Requested Referral 10/29/2021 10/29/2022 1 1 [facility] Outpatient Procedure (Routine) - Pending Review Specialty Diagnoses / Procedures Referred By Sushma veloz [facility] Diagnoses Seizure-like activity (HCC) Procedures EPIL EEG ROUTINE ELECTROENCEPHALOGRAM REC COMA/SLEEP ONLY Nelly Saldaña PA-C [address] [place] [address] [facility] [place] [address] [place] [address] Referral ID Status Reason Start Date Expiration Date Visits Requested Visits Authorized [id number] Pending Review Auto-Generat ed Referral 11/08/2021 11/08/2022 1 1 [facility] Advance Directives No Advanced Directives Records FoundDocuments on File Type Date Recorded 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 ACP-Advance Directive ACP-Power of [employer] Latest Code Status on File Code Status [...] By Sushma veloz Referred To Contact Jesse Wharton MD [address] [place] [address] Referral ID Status Reason Start Date Expiration Date Visits Re quested Visits Authorized [id number] Closed 1 1 Specialty Diagnoses / Procedures Referred By Sushma veloz Referred To Contact Diagnoses 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 with status migrainosus 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 without status migrainosus Procedures PROVIDER ORDERED FOLLOW UP OFFICE/OUTPATIENT [employer] [facility] 60 MINUTES Suzan Drivre APRN.CNP [address] [place] [address] Referral ID Status Reason Start Date Expiration Date Visits Requested Visits Authorized [id number] Authorized PCP Requested Referral 07/13/2023 04/13/2024 1 1 Additional Source Comments Source Comments (unrecognize d section and content) In the event this informatio n is protected by the Federal Confidentiality of Alcohol and Drug Abuse Patient Records regulations: The Federal rules restrict any use of the information to criminally investigate or prosecute any alcohol or drug abuse patient.[facility] the event this information is protected by the Federal Confidentiality of Alcohol and Drug Abuse Patient Records regulations: The Federal rules restrict any use of the information to criminally investigate or prosecute any alcohol or drug abuse patient.[facility] Center[facility] the event this information is protected by the Federal Confidentiality of Alcohol and Drug Abuse Patient Records regulations: The Federal rules restrict any use of the information to criminally investigate or prosecute any alcohol or drug abuse patient.[facility] CenterIn the event this information is protected by the Federal Confidentiality of Alcohol and Drug Abuse Patient Records regulations: The Federal rules restrict any use of the information to criminally investigate or prosecute any alcohol or drug abuse patient.[facility] CenterIn the event this information is protected by the Federal Confidentiality of Alcohol and Drug Abuse Patient Records regulations: The Federal rules restrict any use of the information to criminally investigate or prosecute any alcohol or drug abuse patient.[facility] CenterIn the event this information is protected by the Federal Confidentiality of Alcohol and Drug Abuse Patient Records regulations: The Federal rules restrict any use of the information to criminally investigate or prosecute any alcohol or drug abuse patient.[facility] CenterIn the event this information is protected by the Federal Confidentiality of Alcohol and Drug Abuse Patient Records regulations: The Federal rules restrict any use of the information to criminally investigate or prosecute any alcohol or drug abuse patient.[facility] CenterIn the event this information is protected by the Federal Confidentiality of Alcohol and Drug Abuse Patient Records regulations: The Federal rules restrict any use of the information to criminally investigate or prosecute any alcohol or drug abuse patient.[facility] CenterIn the event this information is protected by the Federal Confidentiality of Alcohol and Drug Abuse Patient Records regulations: The Federal rules restrict any use of the information to criminally investigate or prosecute any alcohol or drug abuse patient.[facility] CenterIn the event this information is protected by the Federal Confidentiality of Alcohol and Drug Abuse Patient Records regulations: The Federal rules restrict any use of the information to criminally investigate or prosecute any alcohol or drug abuse patient.[facility] CenterIn the event this information is protected by the Federal Confidentiality of Alcohol and Drug Abuse Patient Records regulations: The Federal rules restrict any use of the information to criminally investigate or prosecute any alcohol or drug abuse patient.[facility] CenterIn the event this information is protected by the Federal Confidentiality of Alcohol and Drug Abuse Patient Records regulations: The Federal rules restrict any use of the information to criminally investigate or prosecute any alcohol or drug abuse patient.[facility] CenterIn the event this information is protected by the Federal Confidentiality of Alcohol and Drug Abuse Patient Records regulations: The Federal rules restrict any use of the information to criminally investigate or prosecute any alcohol or drug abuse patient.[facility] CenterIn the event this information is protected by the Federal Confidentiality of Alcohol and Drug Abuse Patient Records regulations: The Federal rules restrict any use of the information to criminally investigate or prosecute any alcohol or drug abuse patient.[facility] CenterIn the event this information is protected by the Federal Confidentiality of Alcohol and Drug Abuse Patient Records regulations: The Federal rules restrict any use of the information to criminally investigate or prosecute any alcohol or drug abuse patient.[facility] CenterIn the event this information is protected by the Federal Confidentiality of Alcohol and Drug Abuse Patient Records regulations: The Federal rules restrict any use of the information to criminally investigate or prosecute any alcohol or drug abuse patient.[facility] CenterIn the event this information is protected by the Federal Confidentiality of Alcohol and Drug Abuse Patient Records regulations: The Federal rules restrict any use of the information to criminally investigate or prosecute any alcohol or drug abuse patient.[facility] CenterIn the event this information is protected by the Federal Confidentiality of Alcohol and Drug Abuse Patient Records regulations: The Federal rules restrict any use of the information to criminally investigate or prosecute any alcohol or drug abuse patient.[facility] CenterIn the event this information is protected by the Federal Confidentiality of Alcohol and Drug Abuse Patient Records regulations: The Federal rules restrict any use of the information to criminally investigate or prosecute any alcohol or drug abuse patient.[facility] CenterIn the event this information is protected by the Federal Confidentiality of Alcohol and Drug Abuse Patient Records regulations: The Federal rules restrict any use of the information to criminally investigate or prosecute any alcohol or drug abuse patient.[facility] CenterIn the event this information is protected by the Federal Confidentiality of Alcohol and Drug Abuse Patient Records regulations: The Federal rules restrict any use of the information to criminally investigate or prosecute any alcohol or drug abuse patient.[facility] CenterIn the event this information is protected by the Federal Confidentiality of Alcohol and Drug Abuse Patient Records regulations: The Federal rules restrict any use of the information to criminally investigate or prosecute any alcohol or drug abuse patient.[facility] CenterIn the event this information is protected by the Federal Confidentiality of Alcohol and Drug Abuse Patient Records regulations: The Federal rules restrict any use of the information to criminally investigate or prosecute any alcohol or drug abuse patient.[facility] CenterIn the event this information is protected by the Federal Confidentiality of Alcohol and Drug Abuse Patient Records regulations: The Federal rules restrict any use of the information to criminally investigate or prosecute any alcohol or drug abuse patient.[facility] CenterIn the event this information is protected by the Federal Confidentiality of Alcohol and Drug Abuse Patient Records regulations: The Federal rules restrict any use of the information to criminally investigate or prosecute any alcohol or drug abuse patient.[facility] CenterIn the event this information is protected by the Federal Confidentiality of Alcohol and Drug Abuse Patient Records regulations: The Federal rules restrict any use of the information to criminally investigate or prosecute any alcohol or drug abuse patient.[facility] CenterIn the event this information is protected by the Federal Confidentiality of Alcohol and Drug Abuse Patient Records regulations: The Federal rules restrict any use of the information to criminally investigate or prosecute any alcohol or drug abuse patient.[facility] CenterIn the event this information is protected by the Federal Confidentiality of Alcohol and Drug Abuse Patient Records regulations: The Federal rules restrict any use of the information to criminally investigate or prosecute any alcohol or drug abuse patient.[facility] CenterIn the event this information is protected by the Federal Confidentiality of Alcohol and Drug Abuse Patient Records regulations: The Federal rules restrict any use of the information to criminally investigate or prosecute any alcohol or drug abuse patient.[facility] CenterIn the event this information is protected by the Federal Confidentiality of Alcohol and Drug Abuse Patient Records regulations: The Federal rules restrict any use of the information to criminally investigate or prosecute any alcohol or drug abuse patient.[facility] CenterIn the event this information is protected by the Federal Confidentiality of Alcohol and Drug Abuse Patient Records regulations: The Federal rules restrict any use of the information to criminally investigate or prosecute any alcohol or drug abuse patient.[facility] CenterIn the event this information is protected by the Federal Confidentiality of Alcohol and Drug Abuse Patient Records regulations: The Federal rules restrict any use of the information to criminally investigate or prosecute any alcohol or drug abuse patient.[facility] CenterIn the event this information is protected by the Federal Confidentiality of Alcohol and Drug Abuse Patient Records regulations: The Federal rules restrict any use of the information to criminally investigate or prosecute any alcohol or drug abuse patient.[facility] CenterIn the event this information is protected by the Federal Confidentiality of Alcohol and Drug Abuse Patient Records regulations: The Federal rules restrict any use of the information to criminally investigate or prosecute any alcohol or drug abuse patient.[facility] CenterIn the event this information is protected by the Federal Confidentiality of Alcohol and Drug Abuse Patient Records regulations: The Federal rules restrict any use of the information to criminally investigate or prosecute any alcohol or drug abuse patient.[facility] Reason for Visit (unrecogniz ed section and content) Reason Comments Headache Infusion Specialty Diagnoses / Procedures Referred By Contac t Referred To Contact Neurology / HEADACHE Diagnoses NON-DHE #1 Procedures INFUSION HEADACHE Suzan Driver APRN.[employer] [address] [place] [address] Neur Headache [address] [place] [address] Referral ID Status Reason Start Date Expiration Date V isits Requested Visits Authorized [id number] Authorized 04/12/2023 02/20/2024 99 99 Reason Comments Future Appointment [place] PT, [place], Any Reason Comments Migraine seen at [facility] yest erday for Migrane and D & [...] Maria Del Rosario Hahn MD [address] [place] [address] Neur Headache Main [address] [place] [address] Referral ID Status Reason Start Date Expiration Date Visits Re quested Visits Authorized [id number] Closed 07/28/2022 09/26/2022 1 1 Reason Comments Chronic Migraine Reason Comments Chronic Migraine Reason Comments Insurance Authorization Zomig 5MG nasal spray Reason Comments Infusion Reason Comments Migraine Specialty Diagnoses / Procedures Referred By Contac t Referred To Contact Neurology / HEADACHE Diagnoses POSSIBLE DHE/WAITING FOR ORDERS Procedures INFUSION HEADACHE Self Neur Headache [address] [place] [address] Referral ID Status Reason Start Date Expiration Date V isits Requested Visits Authorized [id number] Authorized 11/10/2022 02/08/2023 1 99 Reason Onset Date Comments Refill Request 12/09/2022 Reason Onset Date Comments Refill Request 12/13/2022 Reason Comments Infusion HEADACHE INFUSIONS Reason Comments Insurance Authorization Aimovig 70MG/ML auto-injectors Specialty Diagnoses / Procedures Referred By Contac t Referred To Contact Neurology / HEADACHE Diagnoses NON-DHE #1 Procedures INFUSION HEADACHE Suzan Driver APRN.[employer] [address] [place] [address] Neur Headache [address] [place] [id number] Reason Comments Appointment Patient currently re ceiving [...] Mon10/19/21 at 1445, Until Discontinued 144 (Due) 08 (Given - Provider: Clementine Cm [...] section and content) DATE CREATED AUTHOR [facility] DATE CREATED AUTHOR AUTHOR'S ORGANIZ ATION 10/25/2021 [facility] DATE CREATED AUTHOR AUTHOR'S ORGANIZ ATION 05/26/2022 [facility] DATE CREATED AUTHOR AUTHOR'S ORGANIZ ATION 08/02/2022 Sean Roberts [facility] DATE CREATED AUTHOR AUTHOR'S ORGANIZ ATION 03/22/2023 [facility] DATE CREATED AUTHOR AUTHOR'S ORGANIZ ATION 04/19/2023 [facility] DATE CREATED AUTHOR AUTHOR'S ORGANIZ ATION 05/26/2023 [facility] Ordered Prescriptions (unrec ognized section and content) Prescription Sig Dispensed Refills Start Date End Da te lamoTRIgine (LAMICTAL) 25 MG tablet Take 2 tablets by mouth daily 30 tablet 3 10/21/2021 Care Teams (unrecognized sec tion and content) Terrazzo Finisher Relationship Specialty Start Date End Date Angélica Arthur, CONCRETE SMOOTHER - [employer] [address] [place] [address] PCP - General Nurse Practitioner 12/24/20 [employer]ra[employer] Finisher Relationship Specialty Start Date End Date Hoy, Maria Del Rosario M (Historical) PCP - General 05/21/13 [employer]ra[employer] Finisher Relationship Specialty Start Date End Date Hoy, Maria Del Rosario M (Historical) PCP - General 05/21/13 Terrazzo Finisher Relationship Specialty Start Date End Date Hoy, Maria Del Rosario M (Historical) PCP - General 05/21/13 Terrazzo Finisher Relationship Specialty Start Date End Date Hoy, Maria Del Rosario M (Historical) PCP - General 05/21/13 Terrazzo Finisher Relationship Specialty Start Date End Date Hoy, Maria Del Rosario M (Historical) PCP - General 05/21/13 Terrazzo Finisher Relationship Specialty Start Date End Date Hoy, Maria Del Rosario M (Historical) PCP - General 05/21/13 Terrazzo Finisher Relationship Specialty Start Date End Date Hoy, Maria Del Rosario M (Historical) PCP - General 05/21/13 Terrazzo Finisher Relationship Specialty Start Date End Date Hoy, Maria Del Rosario M (Historical) PCP - General 05/21/13 Terrazzo Finisher Relationship Specialty Start Date End Date Hoy, Maria Del Rosario M (Historical) PCP - General 05/21/13 Terrazzo Finisher Relationship Specialty Start Date End Date Hoy, Maria Del Rosario M (Historical) PCP - General 05/21/13 Terrazzo Finisher Relationship Specialty Start Date End Date Hoy, Maria Del Rosario M (Historical) PCP - General 05/21/13 Terrazzo Finisher Relationship Specialty Start Date End Date Hoy, Maria Del Rosario M (Historical) PCP - General 05/21/13 Terrazzo Finisher Relationship Specialty Start Date End Date Hoy, Maria Del Rosario M (Historical) PCP - General 05/21/13 Terrazzo Finisher Relationship Specialty Start Date End Date Hoy, Maria Del Rosario M (Historical) PCP - General 05/21/13 Terrazzo Finisher Relationship Specialty Start Date End Date HoyNoamMaria Del Rosario M (Historical) PCP - General 05/21/13 Terrazzo Finisher Relationship Specialty Start Date End Date HoyNoamMaria Del Rosario M (Historical) PCP - General 05/21/13 Terrazzo Finisher Relationship Specialty Start Date End Date HoyNoamMaria Del Rosario M (Historical) PCP - General 05/21/13 Terrazzo Finisher Relationship Specialty Start Date End Date HoyNaomMaria Del Rosario M (Historical) PCP - General 05/21/13 Terrazzo Finisher Relationship Specialty Start Date End Date Hoy, Maria Del Rosario M (Historical) PCP - General 05/21/13 Terrazzo Finisher Relationship Specialty Start Date End Date HoyNoamMaria Del Rosario M (Historical) PCP - General 05/21/13 Terrazzo Finisher Relationship Specialty Start Date End Date HoyNoamMaria Del Rosario M (Historical) PCP - General 05/21/13 Terrazzo Finisher Relationship Specialty Start Date End Date HoNoam beanlas M (Historical) PCP - General 05/21/13 Terrazzo Finisher Relationship Specialty Start Date End Date HoyNoamMaria Del Rosario M (Historical) PCP - General 05/21/13 Terrazzo Finisher Relationship Specialty Start Date End Date HoNoam beanlas M (Historical) PCP - General 05/21/13 Terrazzo Finisher Relationship Specialty Start Date End Date HoNoam beanlas M (Historical) PCP - General 05/21/13 Terrazzo Finisher Relationship Specialty Start Date End Date HoNoam beanlas M (Historical) PCP - General 05/21/13 Terrazzo Finisher Relationship Specialty Start Date End Date HoNoam beanlas M (Historical) PCP - General 05/21/13 Terrazzo Finisher Relationship Specialty Start Date End Date HoyNoamAmria Del Rosario M (Historical) PCP - General 05/21/13 Inactive [...] mg, INTRAVENOUS, NEEDED, 2 doses, Starting on 2/21/24 at 1103, Until Mon04/12/23 at 1559, Sedation/Dystonia/Akathis [...] BE BASED ON THE PRIMARY CLINICAL RECORDS. [facility]. provides no warranty or guarantee of the accuracy or completeness of information in this document.
[2023-05-29 19:27] VITALS: BP 166/87; PULSE 90; TEMP 32.2; O2SAT 98; BMI 47.2
--- NOTE | 2023-05-29 20:30 | ED_ITS ---
HPI HPI - General Adult General Chief complaint: Headache Stated complaint: migraine Time Seen by Provider: 05/29/23 19:39 Source: patient Mode of arrival: walk-in Limitations: no limitations History of Present Illness HPI narrative: patient presents complaining of migraine headache. States started yesterday and associated with nausea and vomiting. Same location as prior migraine headache. No fever, neck stiffness or numbness/weakness of her extremities. Related Data Home Medications ?Medication ?Instructions ?Recorded ?Confirmed baclofen 10 mg tablet 10 mg PO TID spasms 07/20/22 05/12/23 diazepam 10 mg tablet 10 mg PO BID 07/20/22 05/12/23 epinephrine 0.3 mg/0.3 mL 0.3 mg IM Q10M PRN anaphylaxis 07/20/22 05/12/23 injection, auto-injector estradiol 0.5 mg tablet 0.5 mg PO QAM 01/06/23 05/12/23 diphenhydramine HCl 25 mg capsule 75 mg PO Q6H PRN migraine headache 01/26/23 05/12/23 (Benadryl) ibuprofen 800 mg tablet 800 mg PO Q8H PRN pain 01/26/23 05/12/23 lamotrigine 200 mg tablet 200 mg PO BID 01/26/23 05/12/23 orphenadrine citrate 100 mg 100 mg PO BID PRN migraine 01/26/23 05/12/23 tablet,extended release promethazine 25 mg tablet 12.5 mg PO Q6H PRN nausea and 01/26/23 05/12/23 vomiting albuterol sulfate 2.5 mg/3 mL 2.5 mg inhalation Q4H PRN 03/03/23 05/12/23 (0.083 %) solution for nebulization shortness of breath or wheezing ketorolac 10 mg tablet 10 mg PO Q6H PRN migraine headache 03/03/23 05/12/23 magnesium oxide 400 mg PO .qhs 03/03/23 05/12/23 trazodone 300 mg tablet 300 mg PO .qhs 03/03/23 05/12/23 erenumab-aooe 70 mg/mL 70 mg subcut ONCE PRN migraine 04/27/23 05/12/23 subcutaneous auto-injector headache (Aimovig Autoinjector) lithium carbonate 300 mg tablet 300 mg PO Q12H 04/27/23 05/12/23 Previous Rx's ?Medication ?Instructions ?Recorded ondansetron 4 mg disintegrating 4 mg PO Q6H PRN nausea and 02/26/23 tablet vomiting #20 tabs budesonide-formoterol HFA 160 2 inh inhalation Q12H #10.2 grams 03/04/23 mcg-4.5 mcg/actuation aerosol inhaler (Symbicort) tobramycin 0.3 %-dexamethasone 0.1 1 drp ophthalmic (eye) Q6H 7 days 05/12/23 % eye drops,suspension #5 mL ketorolac 10 mg tablet 10 mg PO Q8H PRN pain 2 days #6 05/13/23 tabs promethazine 25 mg tablet 25 mg PO Q6H PRN nausea and 05/13/23 vomiting 3 days #12 tabs tramadol 50 mg tablet 50 mg PO BID PRN pain 3 days #6 05/13/23 tabs Allergies Allergy/AdvReac Type Severity Reaction Status Date / Time dihydroergotamine Allergy Unknown Verified 05/29/23 19:27 vortioxetine Allergy Unknown Verified 05/29/23 19:27 buspirone Allergy Hives Verified 05/29/23 19:27 carbamazepine Allergy Unknown Verified 05/29/23 19:27 levetiracetam [From Keppra] Allergy ITCHING Verified 05/29/23 19:27 azithromycin [From Zithromax] AdvReac Intermediate Hives Verified 05/29/23 19:27 bee venom protein (honey bee) AdvReac Intermediate Hives Verified 05/29/23 19:27 metoclopramide [From Reglan] AdvReac Intermediate panic Verified 05/29/23 19:27 adhesive tape AdvReac Mild Rash Verified 05/29/23 19:27 cephalexin [From Keflex] AdvReac Mild Hives Verified 05/29/23 19:27 dextromethorphan AdvReac Mild Unknown Verified 05/29/23 19:27 [From [place] [facility]] pyrilamine [From [place] [facility]] AdvReac Mild Unknown Verified 05/29/23 19:27 propranolol AdvReac Hives Verified 05/29/23 19:27 Opioid HPI Opioid Management Most Recent Opioid Data: Last Pain Scale 4 05/13/23 10:22 Last ORT Total Score 1 05/12/23 16:27 Last ORT Risk Category Low Risk 05/12/23 16:27 Review of Systems ROS Status of ROS 10 or more systems reviewed and unremark able except as noted in history and below PFSH PFSH Medical History Chronic pain disorder ?G89.4 - Chronic pain syndrome (ICD-10) Conjunctivitis ?H10.9 - Unspecified conjunctivitis (ICD-10) Migraine ?G43.909 - Migraine, unspecified, not intractable, without status migrainosus (ICD-10) Viral upper respiratory tract infection with cough ?J06.9 - Acute upper respiratory infection, unspecified (ICD-10) Seizure disorder ?G40.909 - Epilepsy, unspecified, not intractable, without status epilepticus (ICD-10) Bipolar disorder ?F31.9 - Bipolar disorder, unspecified (ICD-10) Pelvic pain ?R10.2 - Pelvic and perineal pain (ICD-10) Headache ?R51.9 - Headache, unspecified (ICD-10) Bilateral occipital neuralgia ?M54.81 - Occipital neuralgia (ICD-10) Migraine ?G43.909 - Migraine, unspecified, not intractable, without status migrainosus (ICD-10) Post-op pain ?G89.18 - Other acute postprocedural pain (ICD-10) Combative behavior ?R46.89 - Other symptoms and signs involving appearance and behavior (ICD-10) Postoperative nausea and vomiting ?R11.2 - Nausea with vomiting, unspecified (ICD-10) ?Z98.890 - Other specified postprocedural states (ICD-10) Vaginal bleeding ?N93.9 - Abnormal uterine and vaginal bleeding, unspecified (ICD-10) Abscess of vagina ?N76.0 - Acute vaginitis (ICD-10) PCOS (polycystic ovarian syndrome) ?E28.2 - Polycystic ovarian syndrome (ICD-10) Mitral valve prolapse ?I34.1 - Nonrheumatic mitral (valve) prolapse (ICD-10) Vaginal delivery ?O80 - Encounter for full-term uncomplicated delivery (ICD-10) Nausea ?R11.0 - Nausea (ICD-10) GERD (gastroesophageal reflux disease) ?K21.9 - Gastro-esophageal reflux disease without esophagitis (ICD-10) Depression ?F32.A - Depression, unspecified (ICD-10) Blood in urine ?R31.9 - Hematuria, unspecified (ICD-10) Acne ?L70.9 - Acne, unspecified (ICD-10) Dyspareunia Brain mass ?G93.89 - Other specified disorders of brain (ICD-10) Pneumonia ?J18.9 - Pneumonia, unspecified organism (ICD-10) Kidney stones ?N20.0 - Calculus of kidney (ICD-10) COVID-19 ?U07.1 - COVID-19 (ICD-10) Bronchitis ?J40 - Bronchitis, not specified as acute or chronic (ICD-10) Asthma ?J45.909 - Unspecified asthma, uncomplicated (ICD-10) Stress incontinence ?N39.3 - Stress incontinence (female) (male) (ICD-10) Dysuria ?R30.0 - Dysuria (ICD-10) Seizure ?R56.9 - Unspecified convulsions (ICD-10) Neck pain ?M54.2 - Cervicalgia (ICD-10) Migraine ?G43.909 - Migraine, unspecified, not intractable, without status migrainosus (ICD-10) Low back pain ?M54.50 - Low back pain, unspecified (ICD-10) Head injury ?S09.90XA - Unspecified injury of head, initial encounter (ICD-10) Anxiety ?F41.9 - Anxiety disorder, unspecified (ICD-10) Surgical History H/O laparoscopy (07/21/22) ?Z98.890 - Other specified postprocedural states (ICD-10) S/P RAVI-BSO ?Z90.710 - Acquired absence of both cervix and uterus (ICD-10) ?Z90.722 - Acquired absence of ovaries, bilateral (ICD-10) ?Z90.79 - Acquired absence of other genital organ(s) (ICD-10) Hx laparoscopic cholecystectomy ?Z90.49 - Acquired absence of other specified parts of digestive tract (ICD- 10) H/O: ?Z98.891 - History of uterine scar from previous surgery (ICD-10) History of appendectomy ?Z90.49 - Acquired absence of other specified parts of digestive tract (ICD- 10) Family History Other Acid reflux Acute renal disease Afib Chromosomal disorder Delayed developmental milestones Diabetes Family history of hypertension High cholesterol Neuro-irritability due to autonomic dysfunction 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 level of school completed/degree received: high school graduate Gender Identity: female Exam Constitutional Vital Signs, click to edit/add: Last Vital Signs Temp 90 F L 05/29/23 19:27 Pulse 90 05/29/23 19:27 Resp 14 05/29/23 19:27 BP 166/87 H 05/29/23 19:27 Pulse Ox 98 05/29/23 19:27 O2 Del Method Room Air 05/29/23 19:27 Common normals: no apparent distress, oriented x3, no limitations, alert and well nourished HENMT Common normals: normocephalic and head/scalp atraumatic Eye Common normals: PERRL and EOMs intact bilaterally Other: photosensitive Respiratory Common normals: normal respiratory effort, no retractions and no use of accessory muscles Cardio Common normals: regular rate, regular rhythm, S1 normal heart sound and S2 normal heart sound Extremity Common normals: normal to inspection and full ROM Neuro Common normals: oriented x3, CN's II-XII intact bilaterally, moves all extremities and no focal motor deficits Psych Appearance: grossly normal Course Vital Signs Vital signs: Vital Signs Temperature 90 F L 05/29/23 19:27 Pulse Rate 90 05/29/23 19:27 Respiratory Rate 14 05/29/23 19:27 Blood Pressure 166/87 H 05/29/23 19:27 Pulse Oximetry 98 05/29/23 19:27 Oxygen Delivery Method Room Air 05/29/23 19:27 Temperature 90 F L 05/29/23 19:27 Pulse Rate 90 05/29/23 19:27 Respiratory Rate 14 05/29/23 19:27 Blood Pressure 166/87 H 05/29/23 19:27 Pulse Oximetry 98 05/29/23 19:27 Oxygen Delivery Method Room Air 05/29/23 19:27 Medical Decision Making MDM Narrative Medical decision making narrative: patient presents with recurrent migraine headache. Same as past migraines. Present for a couple of days. Treated and nausea resolved but still had some pain. Solumedrol IM added to help treat pain. Patient resting comfortably in the bed in no distress. Discharged home to follow up with her doctor Discharge Plan Discharge Stand Alone Forms: Portal Instructions Chief Complaint: Headache Clinical Impression: Migraine Patient Disposition: Home, Self-Care Prescriptions / Home Meds: No Action baclofen 10 mg tablet 10 mg PO TID diazepam 10 mg tablet 10 mg PO BID epinephrine 0.3 mg/0.3 mL auto-injector 0.3 mg IM Q10M PRN (Reason: anaphylaxis) Rx Instructions: for 2 doses ondansetron 4 mg tablet,disintegrating 4 mg PO Q6H PRN (Reason: nausea and vomiting) Qty: 20 0RF albuterol sulfate 2.5 mg /3 mL (0.083 %) solution for nebulization 2.5 mg inhalation Q4H PRN (Reason: shortness of breath or wheezing) trazodone 300 mg tablet 300 mg PO .qhs magnesium oxide 400 mg magnesium tablet 400 mg PO .qhs ketorolac 10 mg tablet 10 mg PO Q6H PRN (Reason: migraine headache) budesonide-formoterol [Symbicort] 160-4.5 mcg/actuation HFA aerosol inhaler 2 inh inhalation Q12H Qty: 10.2 0RF Aimovig Autoinjector 70 mg/mL auto-injector 70 mg SUBCUT ONCE PRN (Reason: migraine headache) lithium carbonate 300 mg tablet 300 mg PO Q12H tobramycin-dexamethasone 0.3-0.1 % drops,suspension 1 drp ophthalmic (eye) Q6H 7 Days Qty: 5 0RF Rx Instructions: apply to both eyes promethazine 25 mg tablet 25 mg PO Q6H PRN (Reason: nausea and vomiting) 3 Days Qty: 12 0RF ketorolac 10 mg tablet 10 mg PO Q8H PRN (Reason: pain) 2 Days Qty: 6 0RF tramadol 50 mg tablet 50 mg PO BID PRN (Reason: pain) 3 Days Qty: 6 0RF Rx Instructions: ICD: G43.11 estradiol 0.5 mg tablet 0.5 mg PO QAM ibuprofen 800 mg tablet 800 mg PO Q8H PRN (Reason: pain) promethazine 25 mg tablet 12.5 mg PO Q6H PRN (Reason: nausea and vomiting) orphenadrine citrate 100 mg tablet extended release 100 mg PO BID PRN (Reason: migraine) lamotrigine 200 mg tablet 200 mg PO BID diphenhydramine HCl [Benadryl] 25 mg capsule 75 mg PO Q6H PRN (Reason: migraine headache) Print Language: Frisian Instructions: Migraine Headache (ED) Additional Instructions: follow up with Dr Blair in a couple of days Referrals: Lamont Blair MD [Primary Care Provider] - 1 week Discharge Date/Time: 05/29/23 22:47
[2023-05-29] MEDS: KETOROLAC TROMETHAMINE 60 MG/2 ML VIAL IM (20:59)
[2023-05-29] MEDS: DIPHENHYDRAMINE HCL 50 MG/ML (1ML) VIAL IM (20:59)
[2023-05-29] MEDS: PROCHLORPERAZINE 10 MG/2 ML VIAL IM (21:00)
[2023-05-29] MEDS: METHYLPREDNISOLONE SOD SUCC PF 125 MG/2 ML VIAL IM (22:37)
== END 2023-05-29 22:47 | disposition home or self-care (01) ==
PROVIDERS: Emergency Provider Internal Medicine; PCP Family Medicine
DX: G43.909 Migraine, unspecified, not intractable, without status migrainosus (principal); Z79.899 Other long term (current) drug therapy; G89.4 Chronic pain syndrome; G40.909 Epilepsy, unspecified, not intractable, without status epilepticus; F31.9 Bipolar disorder, unspecified; K21.9 Gastro-esophageal reflux disease without esophagitis; Z87.01 Personal history of pneumonia (recurrent); Z86.16 Personal history of COVID-19; J45.909 Unspecified asthma, uncomplicated; F41.9 Anxiety disorder, unspecified; Z90.710 Acquired absence of both cervix and uterus; Z90.722 Acquired absence of ovaries, bilateral; Z90.79 Acquired absence of other genital organ(s); Z90.49 Acquired absence of other specified parts of digestive tract; Z98.890 Other specified postprocedural states
CPT/HCPCS: 96372; 99284; J2919

== ENCOUNTER 2023-06-26 07:38 | Emergency (ER) | payer OTHER, SELFPAY ==
[2023-06-26 07:42] VITALS: BP 131/89; PULSE 85; TEMP 37.1; O2SAT 97; BMI 47.2
[2023-06-26 07:50] VITALS: O2SAT 97
--- NOTE | 2023-06-26 07:50 | ED_ITS ---
HPI HPI - General Adult General Chief complaint: Headache Stated complaint: HEADACHE Time Seen by Provider: 06/26/23 07:40 Source: patient Mode of arrival: walk-in Limitations: no limitations History of Present Illness HPI narrative: 27-year-old female presents to the emergency department for headache. She has had 10 days since mostly frontal. No trauma fever or stiff neck. She has a l beth history of these headaches and this 1 is similar. She sees a neurologist in [place]. No localized weakness. Related Data Home Medications ?Medication ?Instructions ?Recorded ?Confirmed baclofen 10 mg tablet 10 mg PO TID spasms 07/20/22 05/12/23 diazepam 10 mg tablet 10 mg PO BID 07/20/22 05/12/23 epinephrine 0.3 mg/0.3 mL 0.3 mg IM Q10M PRN anaphylaxis 07/20/22 05/12/23 injection, auto-injector estradiol 0.5 mg tablet 0.5 mg PO QAM 01/06/23 05/12/23 diphenhydramine HCl 25 mg capsule 75 mg PO Q6H PRN migraine headache 01/26/23 05/12/23 (Benadryl) ibuprofen 800 mg tablet 800 mg PO Q8H PRN pain 01/26/23 05/12/23 lamotrigine 200 mg tablet 200 mg PO BID 01/26/23 05/12/23 orphenadrine citrate 100 mg 100 mg PO BID PRN migraine 01/26/23 05/12/23 tablet,extended release promethazine 25 mg tablet 12.5 mg PO Q6H PRN nausea and 01/26/23 05/12/23 vomiting albuterol sulfate 2.5 mg/3 mL 2.5 mg inhalation Q4H PRN 03/03/23 05/12/23 (0.083 %) solution for nebulization shortness of breath or wheezing ketorolac 10 mg tablet 10 mg PO Q6H PRN migraine headache 03/03/23 05/12/23 magnesium oxide 400 mg PO .qhs 03/03/23 05/12/23 trazodone 300 mg tablet 300 mg PO .qhs 03/03/23 05/12/23 erenumab-aooe 70 mg/mL 70 mg subcut ONCE PRN migraine 04/27/23 05/12/23 subcutaneous auto-injector headache (Aimovig Autoinjector) lithium carbonate 300 mg tablet 300 mg PO Q12H 04/27/23 05/12/23 Previous Rx's ?Medication ?Instructions ?Recorded ondansetron 4 mg disintegrating 4 mg PO Q6H PRN nausea and 02/26/23 tablet vomiting #20 tabs budesonide-formoterol HFA 160 2 inh inhalation Q12H #10.2 grams 03/04/23 mcg-4.5 mcg/actuation aerosol inhaler (Symbicort) tobramycin 0.3 %-dexamethasone 0.1 1 drp ophthalmic (eye) Q6H 7 days 05/12/23 % eye drops,suspension #5 mL ketorolac 10 mg tablet 10 mg PO Q8H PRN pain 2 days #6 05/13/23 tabs promethazine 25 mg tablet 25 mg PO Q6H PRN nausea and 05/13/23 vomiting 3 days #12 tabs tramadol 50 mg tablet 50 mg PO BID PRN pain 3 days #6 05/13/23 tabs Allergies Allergy/AdvReac Type Severity Reaction Status Date / Time dihydroergotamine Allergy Unknown Verified 05/29/23 19:27 vortioxetine Allergy Unknown Verified 05/29/23 19:27 buspirone Allergy Hives Verified 05/29/23 19:27 carbamazepine Allergy Unknown Verified 05/29/23 19:27 levetiracetam [From Keppra] Allergy ITCHING Verified 05/29/23 19:27 azithromycin [From Zithromax] AdvReac Intermediate Hives Verified 05/29/23 19:27 bee venom protein (honey bee) AdvReac Intermediate Hives Verified 05/29/23 19:27 metoclopramide [From Reglan] AdvReac Intermediate panic Verified 05/29/23 19:27 adhesive tape AdvReac Mild Rash Verified 05/29/23 19:27 cephalexin [From Keflex] AdvReac Mild Hives Verified 05/29/23 19:27 dextromethorphan AdvReac Mild Unknown Verified 05/29/23 19:27 [From [place] [facility]] pyrilamine [From [place] [facility]] AdvReac Mild Unknown Verified 05/29/23 19:27 propranolol AdvReac Hives Verified 05/29/23 19:27 Opioid HPI Opioid Management Most Recent Opioid Data: Last Pain Scale 10 06/26/23 07:58 Last MAR Pain Assessment 06/26/23 07:58 Last ORT Total Score 1 05/12/23 16:27 Last ORT Risk Category Low Risk 05/12/23 16:27 Review of Systems ROS Narrative A ten point review of systems is negative except as noted above. PFSH PFS Medical History Chronic pain disorder ?G89.4 - Chronic pain syndrome (ICD-10) Conjunctivitis ?H10.9 - Unspecified conjunctivitis (ICD-10) Migraine ?G43.909 - Migraine, unspecified, not intractable, without status migrainosus (ICD-10) Viral upper respiratory tract infection with cough ?J06.9 - Acute upper respiratory infection, unspecified (ICD-10) Seizure disorder ?G40.909 - Epilepsy, unspecified, not intractable, without status epilepticus (ICD-10) Bipolar disorder ?F31.9 - Bipolar disorder, unspecified (ICD-10) Pelvic pain ?R10.2 - Pelvic and perineal pain (ICD-10) Headache ?R51.9 - Headache, unspecified (ICD-10) Bilateral occipital neuralgia ?M54.81 - Occipital neuralgia (ICD-10) Migraine ?G43.909 - Migraine, unspecified, not intractable, without status migrainosus (ICD-10) Post-op pain ?G89.18 - Other acute postprocedural pain (ICD-10) Combative behavior ?R46.89 - Other symptoms and signs involving appearance and behavior (ICD-10) Postoperative nausea and vomiting ?R11.2 - Nausea with vomiting, unspecified (ICD-10) ?Z98.890 - Other specified postprocedural states (ICD-10) Vaginal bleeding ?N93.9 - Abnormal uterine and vaginal bleeding, unspecified (ICD-10) Abscess of vagina ?N76.0 - Acute vaginitis (ICD-10) PCOS (polycystic ovarian syndrome) ?E28.2 - Polycystic ovarian syndrome (ICD-10) Mitral valve prolapse ?I34.1 - Nonrheumatic mitral (valve) prolapse (ICD-10) Vaginal delivery ?O80 - Encounter for full-term uncomplicated delivery (ICD-10) Nausea ?R11.0 - Nausea (ICD-10) GERD (gastroesophageal reflux disease) ?K21.9 - Gastro-esophageal reflux disease without esophagitis (ICD-10) Depression ?F32.A - Depression, unspecified (ICD-10) Blood in urine ?R31.9 - Hematuria, unspecified (ICD-10) Acne ?L70.9 - Acne, unspecified (ICD-10) Dyspareunia Brain mass ?G93.89 - Other specified disorders of brain (ICD-10) Pneumonia ?J18.9 - Pneumonia, unspecified organism (ICD-10) Kidney stones ?N20.0 - Calculus of kidney (ICD-10) COVID-19 ?U07.1 - COVID-19 (ICD-10) Bronchitis ?J40 - Bronchitis, not specified as acute or chronic (ICD-10) Asthma ?J45.909 - Unspecified asthma, uncomplicated (ICD-10) Stress incontinence ?N39.3 - Stress incontinence (female) (male) (ICD-10) Dysuria ?R30.0 - Dysuria (ICD-10) Seizure ?R56.9 - Unspecified convulsions (ICD-10) Neck pain ?M54.2 - Cervicalgia (ICD-10) Migraine ?G43.909 - Migraine, unspecified, not intractable, without status migrainosus (ICD-10) Low back pain ?M54.50 - Low back pain, unspecified (ICD-10) Head injury ?S09.90XA - Unspecified injury of head, initial encounter (ICD-10) Anxiety ?F41.9 - Anxiety disorder, unspecified (ICD-10) Surgical History H/O laparoscopy (07/21/22) ?Z98.890 - Other specified postprocedural states (ICD-10) S/P RAVI-BSO ?Z90.710 - Acquired absence of both cervix and uterus (ICD-10) ?Z90.722 - Acquired absence of ovaries, bilateral (ICD-10) ?Z90.79 - Acquired absence of other genital organ(s) (ICD-10) Hx laparoscopic cholecystectomy ?Z90.49 - Acquired absence of other specified parts of digestive tract (ICD- 10) H/O: ?Z98.891 - History of uterine scar from previous surgery (ICD-10) History of appendectomy ?Z90.49 - Acquired absence of other specified parts of digestive tract (ICD- 10) Family History Other Acid reflux Acute renal disease Afib Chromosomal disorder Delayed developmental milestones Diabetes Family history of hypertension High cholesterol Neuro-irritability due to autonomic dysfunction 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 General: The patient appears well and in no apparent distress. Patient is resting comfortably on cart. Skin: Warm, dry, no pallor noted. There is no rash noted. Head: Normocephalic, atraumatic, neck supple, no nuchal rigidity Eye: Normal conjunctiva, no drainage, would not allow pupillary exam, repeatedly turn head and closed eyes at attempts Ears, Nose, Mouth, and Throat: oral mucosa is moist. Nares patent. Cardiovascular: Regular Rate and Rhythm Respiratory: Patient is in no distress, no accessory muscle use, lungs are clear to auscultation, no wheezing, rales or rhonchi GI: Soft and nontender Musculoskeletal: The patient has no evidence of calf tenderness, no pitting edema, symmetrical pulses noted bilaterally Neurological: A&O, normal speech, upper and lower extremity strength symmetric Psychiatric: Cooperative Constitutional Vital Signs, click to edit/add: Last Vital Signs Temp 98.8 F 06/26/23 07:42 Pulse 85 06/26/23 07:42 Resp 18 06/26/23 07:42 BP 131/89 06/26/23 07:42 Pulse Ox 97 06/26/23 07:50 O2 Del Method Room Air 06/26/23 07:50 Course Vital Signs Vital signs: Vital Signs Temperature 98.8 F 06/26/23 07:42 Pulse Rate 85 06/26/23 07:42 Respiratory Rate 18 06/26/23 07:42 Blood Pressure 131/89 06/26/23 07:42 Pulse Oximetry 97 06/26/23 07:42 Oxygen Delivery Method Room Air 06/26/23 07:42 Temperature 98.8 F 06/26/23 07:42 Pulse Rate 85 06/26/23 07:42 Respiratory Rate 18 06/26/23 07:42 Blood Pressure 131/89 06/26/23 07:42 Pulse Oximetry 97 06/26/23 07:50 Oxygen Delivery Method Room Air 06/26/23 07:50 Medical Decision Making MDM Narrative Medical decision making narrative: She was medicated with IM Toradol, Benadryl, Compazine, and Solu-Medrol. I have no clinical suspicion of acute intracranial pathology or meningitis. Treatment diagnosis and follow-up were discussed with the patient. Differential Diagnosis Differential Diagnosis: My grain headache, tension headache, meningitis, intracranial hemorrhage Discharge Plan Discharge Stand Alone Forms: Portal Instructions Chief Complaint: Headache Clinical Impression: Migraine Patient Disposition: Home, Self-Care Time of Disposition Decision: 08:14 Condition: Good Mode of Transportation: Private Vehicle Prescriptions / Home Meds: No Action baclofen 10 mg tablet 10 mg PO TID diazepam 10 mg tablet 10 mg PO BID epinephrine 0.3 mg/0.3 mL auto-injector 0.3 mg IM Q10M PRN (Reason: anaphylaxis) Rx Instructions: for 2 doses ondansetron 4 mg tablet,disintegrating 4 mg PO Q6H PRN (Reason: nausea and vomiting) Qty: 20 0RF albuterol sulfate 2.5 mg /3 mL (0.083 %) solution for nebulization 2.5 mg inhalation Q4H PRN (Reason: shortness of breath or wheezing) trazodone 300 mg tablet 300 mg PO .qhs magnesium oxide 400 mg magnesium tablet 400 mg PO .qhs ketorolac 10 mg tablet 10 mg PO Q6H PRN (Reason: migraine headache) budesonide-formoterol [Symbicort] 160-4.5 mcg/actuation HFA aerosol inhaler 2 inh inhalation Q12H Qty: 10.2 0RF Aimovig Autoinjector 70 mg/mL auto-injector 70 mg SUBCUT ONCE PRN (Reason: migraine headache) lithium carbonate 300 mg tablet 300 mg PO Q12H tobramycin-dexamethasone 0.3-0.1 % drops,suspension 1 drp ophthalmic (eye) Q6H 7 Days Qty: 5 0RF Rx Instructions: apply to both eyes promethazine 25 mg tablet 25 mg PO Q6H PRN (Reason: nausea and vomiting) 3 Days Qty: 12 0RF ketorolac 10 mg tablet 10 mg PO Q8H PRN (Reason: pain) 2 Days Qty: 6 0RF tramadol 50 mg tablet 50 mg PO BID PRN (Reason: pain) 3 Days Qty: 6 0RF Rx Instructions: ICD: G43.11 estradiol 0.5 mg tablet 0.5 mg PO QAM ibuprofen 800 mg tablet 800 mg PO Q8H PRN (Reason: pain) promethazine 25 mg tablet 12.5 mg PO Q6H PRN (Reason: nausea and vomiting) orphenadrine citrate 100 mg tablet extended release 100 mg PO BID PRN (Reason: migraine) lamotrigine 200 mg tablet 200 mg PO BID diphenhydramine HCl [Benadryl] 25 mg capsule 75 mg PO Q6H PRN (Reason: migraine headache) Print Language: Polish Instructions: Migraine Headache (ED) Referrals: Lamont Blair MD [Primary Care Provider] - 1 week
[2023-06-26] MEDS: KETOROLAC TROMETHAMINE 60 MG/2 ML VIAL IM (07:58)
[2023-06-26] MEDS: PROCHLORPERAZINE 10 MG/2 ML VIAL IM (07:58)
[2023-06-26] MEDS: DIPHENHYDRAMINE HCL 50 MG/ML (1ML) VIAL IM (07:58)
[2023-06-26] MEDS: METHYLPREDNISOLONE SOD SUCC PF 125 MG/2 ML VIAL IM (07:59)
--- OUTSIDE RECORDS SUMMARY | 2023-06-26 08:05 | XMS_ITS | CCD ---
Author Organization [facility] Care Team Providers Care Director Corporate Sales Name Role Phone Maria Del Rosario Hahn (Historical) Primary Care Provide r Unavailable Daniels CRIMINAL JUSTICE SOCIAL WORKER - HATCH TENDER, Angélica Santiago Primary Care Provider DANIELANGÉLICA Rick Primary Care Unavailable VIELKA CHING Attending Unavailable Kuns CRIMINAL JUSTICE SOCIAL WORKER - HATCH TENDER, Angélica Santiago Primary Care Provider LUCILA MOTA Attending Unavailable LYNDSEY STEWART Referring Unavailable ANGÉLICA ARTHUR Primary Care Unavailable [...] Garcia Primary Care Unavailable JEFFERSON .MARY Consulting Unavailabl e ANASTASIA, DR GOMEZ Primary Care Unavailable [...] Unavailable GRECHNY ., MARY WHITNEY Consulting Unavaildeshaun e ANASTASIIA, JASS Consulting Unavailable SUKHDEEP DOCKERY Attending Unavailable KUNKrupa, DR ANGÉLICA Santiago Primary Care Unavailable SUKHDEEP DOCKERY Admitting Unavailable HAY ., DR HARMAN Consulting Unavailable SUKHDEEP DOCKERY Consulting Unavailable TONY DAHL Consulting Unavailable FAWWAD, LEW H Admitting Unavailable FAWWAD, LEW H Attending Unavailable ZIEBER, DR LOPEZ Santiago Consulting Unavailable REQUEST, DR [...] MANJINDER Admitting Unavailable PATRICIA WALSH Consulting Unavailable [facility] DR GOMEZ Primary Care Unavailable HAY ., DR HARMAN Attending Unavailable HAY ., DR HARMAN Admitting Unavailable NEWSTEWART, NICHOLAS Consulting Unavailable UNLU, SINDY Consulting Unavailable LEONARDO ., DR GUTIERREZ Admitting Unavailable LEONARDO ., DR GUTIERREZ Consulting Unavailable [facility] Primary Care Unavailable LEONARDO ., DR GUTIERREZ Attending Unavailable KUNS, DR ANGÉLICA Santiago Primary Care Unavailable LEONARDO ., DR GUTIERREZ Admitting Unavailable LEONARDO ., DR GUTIERREZ Attending Unavailable LEONARDO ., DR GUTIERREZ Consulting Unavailable LEONARDO ., DR GUTIERREZ Admitting Unavailable LEONARDO ., DR GUTIERREZ Attending Unavailable NADERER, DR SPENSER Garcia Primary Care Unavailable [facility] Primary Care Unavailable HAY ., DR [...] MANJINDER Consulting Unavailable SAY, MANJINDER Admitting Unavailable SANDHYA, DR ANGÉLICA Santiago Primary Care Unavailable KUNKrupa, DR ANGÉLICA Santiago Referring Unavailable LEONARDO ., DR GUTIERREZ Admitting Unavailable LEONARDO ., DR GUTIERREZ Attending Unavailable LEONARDO ., DR GUTIERREZ Consulting Unavailable REQUEST, DR NONE LISTED Primary Care Unavaila ble AGUBOSIM, BARON [...] HARMAN Admitting Unavailable AHDOOT, NELI Consulting Unavailable BIDDLECOM, SUZAN Referring Unavailable BIDDLECOM, SUZAN Attending Unavailable BIDDLECOM, SUZAN Referring Unavailable BIDDLECOM, SUZAN Attending Unavailable BIDDLECOM, SUZAN Referring Unavailable HOY, MARIA DEL ROSARIO M Referring Unavailable GREEN, KOLI Attending Unavailable GREEN, LOGAN Attending Unavailable GREEN, KOLI Referring Unavailable BIDDLECOM, SUZAN Attending Unavailable AKIKO, JESSE Attending Unavailable GREEN, KOLI Attending Unavailable HOY, MARIA DEL ROSARIO M Referring Unavailable HOY, MARIA DEL ROSARIO M Referring Unavailable ОЛЬГА AGUILAR Attending Unavailable GREEN, MONICAI Attending Unavailable BIDDLECOM, SUZAN Attending Unavailable GREEN, MONICAI Attending Unavailable LEONARDO, ZAY Attending Unavailable LEONARDO, ZAY Attending Unavailable LEONARDO, ZAY Attending Unavailable LEONARDO, ZAY Attending Unavailable NADERERSPENSER Attending Unavailable LEONARDO, ZAY Attending Unavailable Haider, Ramsey Admitting Unavailab le Haider, Ramsey Attending Unavailab le NON STAFF Primary Care Unavailable Allergies Allergy Classification Reported Allergen(s) Allergy Type Date of Onset Reaction(s) Facility (20 sources) Azithromycin; Translations: [AZITHROMYCIN] Drug Allergy 1 Hives, Other: See Comments [facility] (2 sources) carBAMazepine Drug Allergy 1 Other (See Comments) [facility] (20 sources) Cephalexin; Translations: [CEPHALEXIN] Drug Allergy 1 Hives, Rash [facility] (20 sources) Metoclopramide; Translations: [METOCLOPRAMIDE] Drug Allergy 1 Hives, Intolerance [facility] (2 sources) Propranolol Drug Allergy 1 Hives, Other (See Comments) [facility] (20 sources) Adhesive Tape-Silicones; Translations: [ADHESIVE TAPE-SILICONES] Drug Allergy 2 Rash [facility] (20 sources) Dextromethorphan / Pyrilamine; Translations: [PYRILAMINE-DEXTROME THORPHAN] Drug Allergy 2 [facility] Work Phone: (20 sources) vortioxetine; Translations: [VORTIOXETINE] Drug Allergy 2 [facility] Work Phone: (20 sources) Dihydroergotamine; Translations: [DIHYDROERGOTAMINE] Drug Allergy 3 Intolerance [facility] (1 source) Azithromycin Drug Allergy [facility] (1 source) bee venom Drug allergy (disorder) [facility] (1 source) Cephalexin Drug Allergy [facility] (1 source) Desonide Drug Allergy [facility] (1 source) Iothalamate Drug Allergy [facility] (1 source) Propranolol Drug Allergy [address] [facility] (1 source) [place] DM Drug allergy (disorder) [address] [facility] (13 sources) levETIRAcetam; Translations: [LEVETIRACETAM] Drug Allergy 3 Itching [facility] Work Phone: (2 sources) Valproate; Translations: [DIVALPROEX] Drug Allergy 4 Hives [facility] Work Phone: Medications Current Medications [...] at Discharge) take 1 tablet by sami once daily gabapentin (NEURONTIN) 600 MG tablet [...] Start: 10-21-2021 take 2 tablets by mo ut once daily lamoTRIgine (LAMICTAL) 25 MG tablet [...] tablet (7 sources) Sympathomimetic Amine Anorectic Start: 024 take 1 tablet by mouth once daily before mealtime Phentermine HCl 37.5 mg tablet take 1 tablet by mouth every morning before meals 0 03/21/2023 Active Comment on above: take 1 tablet by sami th every morning before meals polyethylene glycol 3350 93047 mg powder for oral solution (1 source) [...] (ZOMIG) 5 mg nasal spray Use 1 [place] in the nose as needed at onset of migraine headache. If symptoms persist or return, may repeat dose in other nostril after 2 hours. Maximum of 2 sprays per 24 hours 10 Each 2 03/17/2023 Active Start: 06-24-2022 ZOLMitriptan ( ZOMIG) 5 mg nasal spray Use 1 [place] in the nose as needed at onset of migraine headache. If symptoms persist or return, may repeat dose in other nostril after 2 hours. Maximum of 2 sprays per 24 hours 10 Each 2 06/24/2022 Active Start: 06-24-2022 take 1 spray(s) nasa l route every twenty-four hours as needed ZOLMitriptan (ZOMIG) 5 mg nasal spray Use 1 [place] in the nose as needed. SPRAY IN 1 NOSTRIL AT ONSET OF MIGRAINE HEADACHE. If symptoms persist or return, may repeat dose after 2 hours. Maximum: 5 mg/dose; 10 mg per 24 hours 10 Each 2 06/24/2022 Active Comment on above: Use 1 [place] in the n ose as needed. SPRAY IN 1 NOSTRIL AT ONSET OF MIGRAINE HEADACHE. If symptoms persist or return, may repeat dose after 2 hours. Maximum: 5 mg/dose; 10 mg per 24 hours Use 1 [place] in the n ose as needed at [...] 08-14-2021 Episodic Other aftercare (1 source) Other care home (current) drug therapy; Translations: [OTH SHELTER CURRENT DRUG THERAPY] Onset: 06-22-2022 Episodic Other [...] Test Name Value Interpretation Reference Range Facility [facility] 04-14-2023 CNOV Office Visit (NHMNS2) ---- CONI NICHOLSON ([id number]) 1995 F Date Time Provider Department 04/14/23 8:30 AM [facility] During your visit today, we recorded the following information about you: Suzan Driver APRN.HATCH TENDER 04/14/2023 10:49 AM Signed Headache Center Infusion [...] Level: 4/10 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 Short and care home memory, cognition and general fund of knowledge are good. Attention span and concentration are good. Cranial Nerves: VII-face is symmetric without evidence of weakness. VIII-hearing intact. Assessment: 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 with status migrainosus (primary encounter diagnosis) Pt reports zofran not very effective, but she does respond well to compazine. Compazine added to replace zofran for 2nd line antiemetic. Plan: Coni L Bharat is a 27 year old year old female, following up today for day 3 of infusions. Response to infusions: pain and nausea are improving Follow up/ discharge plan: f/u in 3 months Start aimovig this Level of service: Est level 4 (30-39 min). Time spent 30 min on the day of service, which included preparing to see the patient, fler-ai-pyzj patient care, completing clinical documentation, obtaining and/or reviewing separately obtained history, performing a medically appropriate examination, counseling and educating the patient/family/patient care associate, and ordering medications, tests, or procedures. Suzan Driver APRN.[facility] Headache Section [facility] Suzan Driver APRN.CNP 04/14/2023 10:49 AM Signed Follow up/ discharge plan: f/u in 3 months Start aimovig this Aimovig Information Aimovig is a CGRP monoclonal antibody (MAB). CGRP is a substance in the brain that plays a chong role in causing migraine. Aimovig was specifically developed t (more content not included)... Normal [facility] CNPNon 04-13-2023 [facility] ---- CONI NICHOLSON ([id number]) 1995 F Date Time Provider Department 04/13/23 [facility]AN [facility] During your visit today, we [...] (ZOMIG) 5 mg nasal spray Use 1 [place] in the nose as needed at onset [...] Encounter Status:Closed by JOHANA CANCINO on 04/13/23 [facility] CNOVon 04-12-2023 CNOV Office Visit (VTMNS2) ---- CONI NICHOLSON ([id number]) 1995 F Date Time Provider Department 04/12/23 1:30 PM [facility] During your visit today, we recorded the following information about you: Suzan Driver APRN.[facility] 04/12/2023 11:52 AM Signed General Headache Education and Headache Prevention Strategies: 1. Maintain a headache diary; learn to identify and avoid triggers. 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 These can be obtained at igobubble.AppMesh or Drive.[employer]: see list below. 2. Limit use of acute treatments (lmrd-hlv-cbucclu medications, triptans, etc.) to no more than [...] and quiet environment. Relax and reduce stress. Iyifrtl4Wkigw is a free andrzej that can instruct you on some simple relaxtion and breathing techniques. Http://Zoombu is a free website that provides teaching [...] epilepsy i (more content not included)... Normal [facility] 03-27-2023 CNPMichael Telephone (MNOPRX) ---- CONI NICHOLSON ([id number]) 1995 F Date Time Provider Department 03/27/23 ANGELY COTTON [facility] During your visit today, we recorded the following information about you: Angely Cotton RN 03/27/2023 1:05 PM Signed [facility] received prescription(s) for Aimovig 70MG/ML auto-injectors . Benefits investigation was conducted, indicating that a prior authorization is required. PA was initiated and pending review through [employer]. All pertinent clinical information was submitted to insurance. [facility] Chong: [id number] Ordering Provider: Logan Barth APRN.Angely Schaefer RN [facility] P: , F: Angely Cotton RN 04/03/2023 12:43 PM Signed Ambulatory Pharmacy Prior Authorization Note Provider Intervention Required?: No- Pharmacy completed on your behalf. Rx Plan: Medicaid MCO ([facility]) Drug: Aimovig 70MG/ML auto-injectors Cover My Meds Chong: [id number] Determination: Approved Prior Authorization/Case #: n/a Prior [...] refills. Prescriptions will now be processed through [facility] for determination of next steps. For questions relating to this submission, please contact [facility] at [phone] Allergies As of Date: 03/27/2023 Noted Allergy [...] Date Reviewed: 03/23/2023 Reviewed by: Logan Barth APRN.HATCH TENDER - Fully Assessed Reason for Visit: Insurance Authorization [1693] Cmt: Aimovig 70MG/ML auto-injectors Prescriptions as of 04/03/2023 - Phentermine HCl 37.5 mg tablet take 1 tablet by mouth every morning before meals - erenumab-aooe (AIMOVIG AUTOINJECTOR) 70 mg/mL auto-injector Inject 1 mL subcutaneously once every month. Do not shake. - ZOLMitriptan (ZOMIG) 5 mg nasal spray Use 1 [place] in the nose as needed at onset [...] Encounter Status:Closed by ANGELY COTTON [facility]03/23 [facility] Telephone (NIQ) ---- CONI NICHOLSON ([id number]) 1995 F Date Time Provider Department 03/21/23 [...] Date Reviewed: 12/12/2022 Reviewed by: Logan Barth APRN.HATCH TENDER - Fully Assessed Reason for Visit: Patient Request [4761] Cmt: Headache infusions Prescriptions as of 03/21/2023 - ZOLMitriptan (ZOMIG) 5 mg nasal spray Use 1 [place] in the nose as needed at onset [...] Encounter Status:Closed by MENDOZA DOOLEY on 03/21/23 [facility] Telephone ([facility]) ---- CONI NICHOLSON ([id number]) 1995 F Date Time Provider Department 12/13/22 LOGAN BARTH [facility] During your visit today, we recorded the [...] Date Reviewed: 12/12/2022 Reviewed by: Logan Barth APRN.HATCH TENDER - Fully Assessed Prescriptions as of 12/13/2022 [...] (ZOMIG) 5 mg nasal spray Use 1 [place] in the nose as needed at onset [...] by JANNETTE MCLEOD on 12/13/22 [facility] Telephone (NIQ) ---- CONI NICHOLSON ([id number]) 1995 F Date Time Provider Department 12/13/22 LOGAN BARTH During your visit today, we recorded the following information about you: DooleyMendoza 12/13/2022 2:27 PM Signed Called patient to schedule for 3 days of Non DHE IV infusions. She started she was currently driving and would call back to schedule Logan Barth APRN.HATCH TENDER P Headache Infusion Scheduling Pool; P C21 [...] Date Reviewed: 12/12/2022 Reviewed by: Logan Barth APRN.HATCH TENDER - Fully Assessed Reason for Visit: Infusion [...] (ZOMIG) 5 mg nasal spray Use 1 [place] in the nose as needed at onset [...] Status:Closed by MENDOZA DOOLEY on 12/13/22 [facility] CNPWendy 11-10-2022 CNPN Telephone (NIQ) ---- CONI NICHOLSON ([id number]) 1995 F Date Time Provider Department 11/10/22 [...] get infusions scheduled. Number to return call [phone] Okay to leave a message ? Yes Last office visit 10/12/22 with [facility] Next office visit Not scheduled. Thank you calling [facility] [place]. You will receive a return call within [...] Date Reviewed: 10/12/2022 Reviewed by: Suzan Driver APRN.HATCH TENDER - Fully Assessed Reason for Visit: Infusion [...] (ZOMIG) 5 mg nasal spray Use 1 [place] in the nose as needed at onset [...] Encounter Status:Closed by MENDOZA DOOLEY on 11/10/22 [facility] CNOVon 10-12-2022 CNOV Office Visit (NHMNS2) ---- CONI NICHOLSON ([id number]) 1995 F Date Time Provider Department 10/12/22 10:15 AM [facility] During your visit today, we recorded the following information about you: Pulse Blood pressure Weight Height 91/minute 133/63 108.8 kg 1.549 m Suzan Driver APRN.HATCH TENDER 10/12/2022 11:03 AM Addendum AFTER VISIT CARE [...] maximize the effectiveness of your pain relief. https://.[facility].org/health/ treatments/8312-bot oackpl-rhewe-tmgozp ions Download the Chronic Migraine Anatomy Andrzej (by [employer]ofy) to learn more about botox. -HYDRATION Hydration [...] see if you qualify for reimbursement. https://www.botoxsa MIOTtech.AppMesh/ Return in 3 months for your next [...] PHQ-9 06/24/2022 (more content not included)... Normal [facility] 09-29-2022 CNPN Telephone (MNOPRX) ---- CONI NICHOLSON ([id number]) 1995 F Date Time Provider Department 09/29/22 ANGELY COTTON [facility] During your visit today, we recorded the following information about you: Angely Cotton RN 09/29/2022 11:55 AM Signed [facility] received prescription(s) for Zomig 5MG nasal spray . Benefits investigation was conducted, indicating that a prior authorization is required. PA was initiated and pending review through [employer]. All pertinent clinical information was submitted to insurance. CMM Chong: [id number] Ordering Provider: Logan Barth APRN.CNP Murtaugh, Alisha, RN [facility] P: , F: Angely Cotton RN 10/07/2022 3:17 PM Signed Ambulatory Pharmacy Prior Authorization Note Provider Intervention Required?: No- Pharmacy completed on your behalf. Rx Plan: Medicaid MCO ([facility]) Drug: Zomig 5MG nasal spray Cover My Meds Chong: [id number] Determination: Approved Prior Authorization/Case #: n/a Prior [...] refills. Prescriptions will now be processed through [facility] for determination of next steps. For questions relating to this submission, please contact [facility] at [phone] Allergies As of Date: 09/29/2022 Noted Allergy [...] (ZOMIG) 5 mg nasal spray Use 1 [place] in the nose as needed at onset [...] Encounter Status:Closed by ANGELY COTTON on 10/07/22 [facility] 09-13-2022 [facility] Telephone (VTMNS2) ---- CONI NICHOLSON ([id number]) 1995 F Date Time Provider Department 09/13/22 LOGAN BARTH [facility] During your visit today, we [...] Date Reviewed: 09/12/2022 Reviewed by: Logan Barth APRN.HATCH TENDER - Fully Assessed Reason for Visit: Referral [...] (ZOMIG) 5 mg nasal spray Use 1 [place] in the nose as needed. SPRAY IN [...] Encounter Status:Closed by ENEDINA TSAI on 09/13/22 [facility] CNCOon 09-08-2022 CNCO Letter Text [facility] CNPNon 07-05-2022 CNPN Telephone (MNOPRX) ---- BHARATCONI L ([id number]) 1995 F Date Time Provider Department 07/05/22 ANGELY COTTON [facility] During your visit today, we recorded the following information about you: Angely Cotton RN 07/05/2022 1:18 PM Signed [facility] received prescription(s) for Emgality 120MG/ML auto-injectors (migraine) . Benefits investigation was conducted, indicating that a prior authorization is required. PA was initiated and pending review through [employer]. All pertinent clinical information was submitted to insurance. CMM Chong: [id number] Ordering Provider: Logan Barth APRN.Angely Schaefer RN [facility] P: , F: Angely Cotton RN 07/11/2022 12:55 PM Signed Ambulatory Pharmacy Prior Authorization Note Provider Intervention Required?: No- Pharmacy completed on your behalf. Rx Plan: Medicaid MCO ([facility]) Drug: Emgality 120MG/ML auto-injectors (migraine) Cover My Meds Chong: [id number] Determination: Denied PA Denied because: Step therapy requirement Prior Authorization/Case #: n/a Prior Authorization Expiration: n/a Time to PA Submission in CMM: 15 min Time to PA Determination in CMM: 1 day Additional Information: Full letter scanned into chart for reference, please review letter for full details. No further action by [facility] for now and existing order to be profiled. Angely Cotton RN [facility] P: , F: For questions relating to this submission, please contact [facility] at [phone] Logan Barth APRN.CNP 07/20/2022 12:44 PM Signed She will have follow up visit after infusions, will discuss alternative treatment options at visit. GABBI Johnston [facility], [place] 08/29/2022 12:12 PM Signed Patient saw Dr. Borrego 08/08/2022, are we able to use these notes to appeal? Tamiko Riggs RN 08/30/2022 11:[address] Borrego' notes have no information or info needed for an appeal so this cannot be used. PRATIBHA Benson [facility], [place] 08/30/2022 2:45 PM Signed I did schedule [...] Authorizing Provider: LOGAN BARTH APRN.CNP Green, Koli, APRN.[facility] 09/27/2022 11:37 AM Signed Addended by: LOGAN [...] Date Reviewed: 06/24/2022 Reviewed by: Logan Barth APRN.[facility] - Fully Assessed Reason for Visit: Insurance Authorization [1693] Cmt: Emgality 120MG/ML auto-injectors (migraine) Order(s):Order #: [id number] Order #: [id number] Prescriptions as of 09/27/2022 - galcanezumab-gnlm (EMGALITY [...] prometh (more content not included)... Normal [facility] 07[facility]04-20[facility] ---- BHARATCONI ([id number]) 1995 F Date Time Provider Department 07/04/22 LOGAN BARTH [facility] During your visit today, we recorded the following information about you: Shirlene Leon 07/04/2022 4:01 PM Signed Ambulatory Pharmacy Prior Authorization Note Provider Intervention Required?: Yes- [place] Medicaid (PCN: [id number]) requires prior authorization to be submitted by the provider. Prior authorization forms required for submission can be found at: [email or web address] nt/DocumentLibrary/ Forms Drug: EMGALITY PEN 120 mg/mL pen Additional Information: n/a URGENT! Please select Urgent when requesting prior authorization using either [employer] or [facility] sites. This should result in a 24 hour turnaround from [facility]. Please send electronic fax using [employer] or [facility] or manually fax completed paperwork to [phone] with ATTN: PA Help Desk. Any questions, please contact us at [facility] [phone] Enedina Tsai RN 07/27/2022 8:32 AM Addendum Submitted PA via covermyPanelClaws. Margaret Nicholson (Chong: [id number]) Emgality 120MG/ML auto-injectors (migraine) Form: [place] Managed Medicaid [facility] Prior Authorization Form Your PA [...] Date Reviewed: 06/24/2022 Reviewed by: Logan Barth APRN.HATCH TENDER - Fully Assessed Prescriptions as of 02/28/2023 [...] (ZOMIG) 5 mg nasal spray Use 1 [place] in the nose as needed at onset [...] Encounter Status:Closed by SHIRLENE LEON on 02/28/23 [facility] Veronica 06-27-2022 [facility] Telephone (NIQ) ---- MARGARET NICHOLSON ([id number]) 1995 F Date Time Provider Department 06/27/22 [...] (ZOMIG) 5 mg nasal spray Use 1 [place] in the nose as needed. SPRAY IN [...] Status:Closed by MENDOZA DOOLEY on 06/27/22 Normal [facility] BLOOD GASES BTYon 06-20-[address] [facility] Comment on above: Performed By: #### B MP #### [facility] [address] [place] [address] Dr. Ibis Jimenez ALLENS TEST Positive [facility] Comment on above: Performed By: #### B MP #### [facility] [address] [place] [address] Dr. Ibis Jimenez Base excess Calc (Bld) [Moles/Vol] -1.6000 mmol/L Normal -2.0-2.0 [facility] Comment on above: Performed By: #### B MP #### [facility] [address] [place] [address] Dr. Ibis Jimenez BIPAP PRESSURE [facility] Comment on above: Performed By: #### B MP #### [facility] [address] [place] [address] Dr. Ibis [address] [facility] Comment on above: Performed By: #### B MP #### [facility] [address] [place] [address] Dr. Ibis Jimenez FIO2 [facility] Comment on above: Performed By: #### B MP #### [facility] [address] [place] [address] Dr. Ibis Jimenez HCO3 (Bld) [Moles/Vol] 23.8 mmol/L Normal 22.0-26.0 [facility] Comment on above: Performed By: #### B MP #### [facility] [address] [place], [place] [id number] Dr. Ibis Jimenez LPM [facility] Comment on above: Performed By: #### B MP #### [facility] [address] [place] [address] Dr. Ibis Jimenez MINUTE VOLUME [facility] Comment on above: Performed By: #### B MP #### [facility] [address] [place] [address] Dr. Ibis Jimenez Oxygen (Bld) [Partial pressure] 75.5 mm[Hg] Critically low 80.0-100.0 [facility] Comment on above: Performed By: #### B MP #### [facility] [address] [place] [address] Dr. Ibis Jimenez Oxygen saturation in Blood 95.8 % Normal 95.0-100.0 [facility] Comment on above: Performed By: #### B MP #### [facility] [address] [place] [address] Dr. Ibis Jimenez PCO2 41.8 mmHg Normal 35.0-45.0 [facility] Comment on above: Performed By: #### B MP #### [facility] [address] [address] [address] [facility] Comment on above: Performed By: #### B MP #### [facility] [address] [place] [address] Dr. Ibis Jimenez pH (Bld) 7.363 [pH] Normal 7.350-7.450 [facility] Comment on above: Performed By: #### B MP #### [facility] [address] [place] [address] Dr. I[address] [facility] Comment on above: Performed By: #### B MP #### [facility] [address] [place] [address] Dr. I[address] Jim[address] [facility] Comment on above: Performed By: #### B MP #### [facility] [address] [place] [address] Dr. Ibis Jimenez PUNCTURE SITE LR [facility] Comment on above: Performed By: #### B MP #### [facility] [address] [place] [address] Dr. Ibis Jimenez [facility] Comment on above: Performed By: #### B MP #### [facility] [address] [place] [address] Dr. Ibis Jimenez [facility] Comment on above: Performed By: #### B MP #### [facility] [address] [place] [address] Dr. Ibis Jimenez [facility] Comment on above: Performed By: #### B MP #### [facility] [address] [place] [address] Dr. Ibis Jimenez CBC AUTO DIFFon 06-20-2022 BASO # 0.0 103/ul Normal 0.0-0.1 [facility] Comment on above: Performed By: #### A CET, SALYC #### [facility] [address] [place] [address] Dr. Ibis Jimenez Basophils/100 WBC (Bld) 0.5 % Normal 0.2-2.0 [facility] Comment on above: Performed By: #### A CET, SALYC #### [facility] [address] [place] [address] Dr. Ibis Jimenez EO # 0.3 103/ul Normal 0.0-0.7 [facility] Comment on above: Performed By: #### A CET, SALYC #### [facility] [address] [place] [address] Dr. Ibis Jimenez Eosinophils/100 WBC (Bld) 4.2 % Normal 0.9-7.0 [facility] Comment on above: Performed By: #### A CET, SALYC #### [facility] [address] [place] [address] Dr. Ibis Jimenez Erythrocyte distribution width (RBC) [Ratio] 13.2 % Normal 11.0-15.0 [facility] Comment on above: Performed By: #### A CET, SALYC #### [facility] [address] [place] [address] Dr. Ibis Jimenez Hematocrit (Bld) [Volume fraction] 36.5 % Normal 36.0-48.0 [facility] Comment on above: Performed By: #### A CET, SALYC #### [facility] [address] [place] [address] Dr. Ibis Jimenez Hemoglobin (Bld) [Mass/Vol] 11.7 g/dL Critically low 12.0-16.0 [facility] Comment on above: Performed By: #### A CET, SALYC #### [facility] [address] [place] [address] Dr. Ibis Jimenez IG # 0.05 10e3/ul Critically high 0.00-0.03 [facility] Comment on above: Performed By: #### A CET, SALYC #### [facility] [address] [place] [address] Dr. Ibis Jimenez IG % 0.8 % Critically high 0.0-0.5 [facility] Comment on above: Performed By: #### A CET, SALYC #### [facility] [address] [place] [address] Dr. Ibis Jimenez LYMPH # 1.7 103/ul Normal 1.2-3.8 [facility] Comment on above: Performed By: #### A CET, SALYC #### [facility] [address] [place] [address] Dr. Ibis Jimenez Lymphocytes/100 WBC (Bld) 26.9 % Normal 20.5-60.0 [facility] Comment on above: Performed By: #### A CET, SALYC #### [facility] [address] [place] [address] Dr. Ibis Jimenez MANUAL DIFF REQ NO Normal [facility] Comment on above: Performed By: #### A CET, SALYC #### [facility] [address] [place] [address] Dr. Ibis Jimenez MCH (RBC) [Entitic mass] 28.7 pg Normal 26.7-34.0 [facility] Comment on above: Performed By: #### A CET, SALYC #### [facility] [address] [place] [address] Dr. Ibis Jimenez MCHC (RBC) [Mass/Vol] 32.1 g/dL Normal 29.9-35.2 [facility] Comment on above: Performed By: #### A CET, SALYC #### [facility] [address] [place] [address] Dr. Ibis Jimenez MCV (RBC) [Entitic vol] 89.7 fL Normal 81.0-99.0 [facility] Comment on above: Performed By: #### A CET, SALYC #### [facility] [address] [place] [address] Dr. Ibis Jimenez MONO # 0.6 103/ul Normal 0.3-0.8 [facility] Comment on above: Performed By: #### A CET, SALYC #### [facility] [address] [place] [address] Dr. Ibis iJmenez Monocytes/100 WBC (Bld) 8.9 % Normal 1.7-12.0 [facility] Comment on above: Performed By: #### A CET, SALYC #### [facility] [address] [place] [address] Dr. Ibis Jimenez NEUT # 3.8 103/ul Normal 1.4-6.5 [facility] Comment on above: Performed By: #### A CET, SALYC #### [facility] [address] [place] [address] Dr. Ibis Jimenez Neutrophils/100 WBC (Bld) 58.7 % Normal 43.0-75.0 [facility] Comment on above: Performed By: #### A CET, SALYC #### [facility] [address] [place] [address] Dr. Ibis Jimenez Platelet mean volume (Bld) [Entitic vol] 9.3 fL Critically low 9.5-13.5 [facility] Comment on above: Performed By: #### A CET, SALYC #### [facility] [address] [place] [address] Dr. Ibis Jimenez PLT 188 103/ul Normal 150-[address] [facility] Comment on above: Performed By: #### A CET, SALYC #### [facility] [address] [address] [address] Ibis Jimenez RBC 4.07 106/ul Critically low 4.20-5.40 [facility] Comment on above: Performed By: #### A CET, SALYC #### [facility] [address] [place] [address] Dr. Ibis Jimenez WBC 6.4 103/ul Normal 4.0-11.0 [facility] Comment on above: Performed By: #### A CET, SALYC #### [facility] [address] [place] [address] Dr. Ibis Jimenez DRUG SCREEN RAPID (URINE)on 06-20-2022 AMP Negative Normal NEGATIVE [facility] Comment on above: Performed By: #### B MP #### [facility] [address] [place] [address] Dr. Ibis Jimenez BAR Positive Abnormal NEGATIVE [facility] Comment on above: Performed By: #### B MP #### [facility] [address] [place] [address] Dr. Ibis Jimenez BUP Negative Normal NEGATIVE [facility] Comment on above: Performed By: #### B MP #### [facility] [address] [place] [address] Dr. Ibis Jimenez BZO Positive Abnormal NEGATIVE [facility] Comment on above: Performed By: #### B MP #### [facility] [address] [place] [address] Dr. Ibis Jimenez SEMAJ Negative Normal NEGATIVE [facility] Comment on above: Performed By: #### B MP #### [facility] [address] [place] [address] Dr. Ibis Jimenez CUT-OFFS SEE BELOW Normal [facility] Comment on above: Result [...] ng/mL Performed By: #### B MP #### [facility] [address] [place] [address] Dr. Ibis Jimenez DRUG CUT HEADER DRUG CLASS TEST SYSTEM CUT-OFF CONCENTRATIONS ARE FOLLOWS: Normal The [facility] Comment on above: Performed By: #### B MP #### [facility] [address] [place] [address] Dr. Ibis Jimenez mAMP Negative Normal NEGATIVE [facility] Comment on above: Performed By: #### B MP #### [facility] [address] [place] [address] Dr. Ibis Jimenez MTD Negative Normal NEGATIVE [facility] Comment on above: Performed By: #### B MP #### [facility] [address] [place] [address] Dr. Ibis Jimenez OPI Negative Normal NEGATIVE [facility] Comment on above: Performed By: #### B MP #### [facility] [address] [place] [address] Dr. Ibis Jimenez OXY Negative Normal NEGATIVE [facility] Comment on above: Performed By: #### B MP #### [facility] [address] [place] [address] Dr. Ibis Jimenez PCP Negative Normal NEGATIVE [facility] Comment on above: Performed By: #### B MP #### [facility] [address] [place] [address] Dr. Ibis Jimenez PPX Negative Normal NEGATIVE [facility] Comment on above: Performed By: #### B MP #### [facility] [address] [place] [address] Dr. Ibis Jimenez TCA Positive Abnormal NEGATIVE [facility] Comment on above: Performed By: #### B MP #### [facility] [address] [place] [address] Dr. Ibis Jimenez THC Positive Abnormal NEGATIVE [facility] Comment on above: Performed By: #### B MP #### [facility] [address] [address] [address] Ibis MELÉNDEZ URINE PROFILEon 3 Bilirubin Ql (U) Negative Normal NEGATIVE [facility] Comment on above: Performed By: #### A CET, SALYC #### [facility] [address] [place] [address] Dr. Ibis Jimenez Clarity (U) CLEAR Normal CLEAR [facility] Comment on above: Performed By: #### A CET, SALYC #### [facility] [address] [place] [address] Dr. Ibis Jimenez Color (U) YELLOW Normal YELLOW [facility] Comment on above: Performed By: #### A CET, SALYC #### [facility] [address] [place] [address] Dr. Ibis RODRIGUEZ A micrscopic examination will be performed if indicated. Normal The [facility] Comment on above: Performed By: #### A CET, SALYC #### [facility] [address] [place] [address] Dr. Ibis Jimenez Glucose Ql (U) Negative Normal NEGATIVE [facility] Comment on above: Performed By: #### A CET, SALYC #### [facility] [address] [place] [address] Dr. Ibis Jimenez Hemoglobin Ql (U) Negative Normal NEGATIVE [facility] Comment on above: Performed By: #### A CET, SALYC #### [facility] [address] [place] [address] Dr. Ibis Jimenez Ketones Ql (U) Negative Normal NEGATIVE [facility] Comment on above: Performed By: #### A CET, SALYC #### [facility] [address] [place] [address] Dr. Ibis Jimenez LEUKOCYTES Negative Normal NEGATIVE [facility] Comment on above: Performed By: #### A CET, SALYC #### [facility] [address] [place] [address] Dr. Ibis Jimenez Nitrite Ql (U) Negative Normal NEGATIVE [facility] Comment on above: Performed By: #### A CET, SALYC #### [facility] [address] [address] [address] Ibis Jimenez pH (U) 5.0 [pH] Normal 5-9 [facility] Comment on above: Performed By: #### A CET, SALYC #### [facility] [address] [address] [address] Ibis Jimenez SPEC GRAVITY >=1.030 Abnormal 1.005-<=1.[address] [place] [address] Comment on above: Performed By: #### A CET, SALYC #### [facility] [address] [place] [address] Dr. Ibis Jimenez UA PROTEIN Negative Normal NEGATIVE/ TRACE [facility] Comment on above: Performed By: #### A CET, SALYC #### [facility] [address] [place] [address] Dr. Ibis Jimenez UR MICRO IND NOT INDICATED Normal [facility] Comment on above: Performed By: #### A CET, SALYC #### [facility] [address] [place] [address] Dr. Ibis Jimenez Urobilinogen Qn (U) 0.2 {Dinorah'U}/dL Normal 0.2 - 1. 0 [facility] Comment on above: Performed By: #### A CET, SALYC #### [facility] [address] [place] [address] Dr. Ibis Jimenez PROF CHEM 8 (BAS METB)on Anion gap [Moles/Vol] 13.1 mmol/L Normal [facility] Comment on above: Performed By: #### M DAVID #### [facility] [address] [place] [address] Dr. Ibis Jimenez Calcium [Mass/Vol] 8.3 mg/dL Critically low 8.5-10.1 [facility] Comment on above: Performed By: #### M DAVID #### [facility] [address] [place] [address] Dr. Ibis Jimenez Chloride [Moles/Vol] 109 mmol/L Critically high 98-107 [facility] Comment on above: Performed By: #### M DAVID #### [facility] [address] [address] [address] Ibis Jimenez CO2 [Moles/Vol] 25.7 mmol/L Normal 21.0-32.0 [facility] Comment on above: Performed By: #### M DAVID #### [facility] [address] [address] [address] Ibis Jimenez Creatinine [Mass/Vol] 0.82 mg/dL Normal 0.55-1.02 [facility] Comment on above: Performed By: #### M DAVID #### [facility] [address] [address] [address] Iibs Jimenez EGFR-AF SWISS >60 Normal >=60 [facility] Comment on above: Performed By: #### M DAVID #### [facility] [address] [address] [address] Ibis Jimenez EGFR-NON AF SWISS >60 Normal >=60 [facility] Comment on above: Performed By: #### M DAVID #### [facility] [address] [address] [address] Ibis Jimenez Glucose [Mass/Vol] 95 mg/dL Normal 74-106 [facility] Comment on above: Performed By: #### M DAVID #### [facility] [address] [address] [address] Ibis Jimenez Potassium [Moles/Vol] 3.8 mmol/L Normal 3.5-5.[address] [facility] Comment on above: Performed By: #### M DAVDI #### [facility] [address] [address] [address] Ibis Jimenez Sodium [Moles/Vol] 144 mmol/L Normal 136-145 [facility] Comment on above: Performed By: #### M DAVID #### [facility] [address] [address] [address] Ibis Jimenez Urea nitrogen [Mass/Vol] 16.0 mg/dL Normal 7.0-18.0 [facility] Comment on above: Performed By: #### M DAVID #### [facility] [address] [address] [address] Ibis Jimenez Urea nitrogen/Creatinine [Mass ratio] 19.5 mg/mg Normal [facility] Comment on above: Performed By: #### M DAVID #### [facility] [address] [place] [address] Dr. Ibis Jimenez ACETAMINOPHENon 06-19-2022 Acetaminophen [Mass/Vol] ug/mL Critically low 10.0-30.0 [facility] Comment on above: Performed By: #### A CET, SALYC #### [facility] [address] [address] [address] Ibis Jimenez DRUG SCREEN RAPID (URINE)on 06-19-2022 AMP Negative Normal NEGATIVE [facility] Comment on above: Performed By: #### M DAVID #### [facility] [address] [place] [address] Dr. Ibis Jimenez BAR Positive Abnormal NEGATIVE [facility] Comment on above: Performed By: #### M DAVID #### [facility] [address] [address] [address] Ibis Jimenez BUP Negative Normal NEGATIVE [facility] Comment on above: Performed By: #### M DAVID #### [facility] [address] [place] [address] Dr. Ibis Jimenez BZO Positive Abnormal NEGATIVE [facility] Comment on above: Performed By: #### M DAVID #### [facility] [address] [address] [address] Ibis Jimenez SEMAJ Negative Normal NEGATIVE [facility] Comment on above: Performed By: #### M DAVID #### [facility] [address] [place] [address] Dr. Ibis Jimenez CUT-OFFS SEE BELOW Normal [facility] Comment on above: Result Comment: AMP (Amphetamine): 500ng/mL, BAR (Barbituates): 200 ng/mL, BZO (Benzodiazepines): 150 ng/mL, BUP (Buprenorphine): 10 ng/mL, SEMAJ (Cocaine): 150 ng/mL, mAMP (Methamphetamine): 500 ng/mL, MTD (Methadone): 200 ng/mL, OPI (Opiates): 100 ng/mL, OXY (Oxycodone): 100 ng/mL, PCP (Phencyclidine): 25 ng/mL, PPX (Propoxyphene): 300 ng/mL, THC (Cannabinoids): 50 ng/mL, TCA (Trycyclic Antidepressants): 300 ng/mL Performed By: #### M DAVID #### [facility] [address] [place] [address] Dr. Ibis Jimenez DRUG CUT HEADER DRUG CLASS TEST SYSTEM CUT-OFF CONCENTRATIONS ARE FOLLOWS: Normal [facility] Comment on above: Performed By: #### M DAVID #### [facility] [address] [place] [address] Dr. Ibis Jimenez mAMP Negative Normal NEGATIVE [facility] Comment on above: Performed By: #### M DAVID #### [facility] [address] [place] [address] Dr. Ibis Jimenez MTD Negative Normal NEGATIVE [facility] Comment on above: Performed By: #### M DAVID #### [facility] [address] [place] [address] Dr. Ibis Jimenez OPI Positive Abnormal NEGATIVE [facility] Comment on above: Performed By: #### M DAVID #### [facility] [address] [place] [address] Dr. Ibis Jimenez OXY Negative Normal NEGATIVE [facility] Comment on above: Performed By: #### M DAVID #### [facility] [address] [place] [address] Dr. Ibis Jimenez PCP Negative Normal NEGATIVE [facility] Comment on above: Performed By: #### M DAVID #### [facility] [address] [place] [address] Dr. Ibis Jimenez PPX Negative Normal NEGATIVE [facility] Comment on above: Performed By: #### M DAVID #### [facility] [address] [place] [address] Dr. Ibis Jimenez TCA Negative Normal NEGATIVE [facility] Comment on above: Performed By: #### M DAVID #### [facility] [address] [address] [address] Ibis Jimenez THC Positive Abnormal NEGATIVE [facility] Comment on above: Performed By: #### M DAVID #### [facility] [address] [address] [address] Ibis Jimenez ER URINE PROFILEon 3 Bilirubin Ql (U) Negative Normal NEGATIVE [facility] Comment on above: Performed By: #### M DAVID #### [facility] [address] [address] [address] Ibis Jimenez Clarity (U) CLEAR Normal CLEAR [facility] Comment on above: Performed By: #### M DAVID #### [facility] [address] [place] [address] Dr. Ibis Jimenez Color (U) YELLOW Normal YELLOW [facility] Comment on above: Performed By: #### M DAVID #### [facility] [address] [place] [address] Dr. Ibis Jimenez ERUAHD A micrscopic examination will be performed if indicated. Normal [facility] Comment on above: Performed By: #### M DAVID #### [facility] [address] [place] [address] Dr. Ibis Jimenez Glucose Ql (U) Negative Normal NEGATIVE [facility] Comment on above: Performed By: #### M DAVID #### [facility] [address] [place] [address] Dr. Ibis Jimenez Hemoglobin Ql (U) TRACE-INTACT Abnormal NEGATIVE [facility] Comment on above: Performed By: #### M DAVID #### [facility] [address] [place] [address] Dr. Ibis Jimenez Ketones Ql (U) Negative Normal NEGATIVE [facility] Comment on above: Performed By: #### M DAVID #### [facility] [address] [place] [address] Dr. Ibis Jimenez LEUKOCYTES Negative Normal NEGATIVE [facility] Comment on above: Performed By: #### M DAVID #### [facility] [address] [address] [address] Ibis Jimenez Nitrite Ql (U) Negative Normal NEGATIVE [facility] Comment on above: Performed By: #### M DAVID #### [facility] [address] [place] [address] Dr. Ibis Jimenez pH (U) 6.0 [pH] Normal 5-9 [facility] Comment on above: Performed By: #### M DAVID #### [facility] [address] [place] [address] Dr. Ibis Jimenez Protein (U) [Mass/Vol] 30 mg/dL Abnormal NEGAT ADALGISA/ TRACE [facility] Comment on above: Performed By: #### M DAVID #### [facility] [address] [place] [address] Dr. Ibis Jimenez SPEC GRAVITY 1.025 Normal 1.005-<=1.02 5 [facility] Comment on above: Performed By: #### M DAVID #### [facility] [address] [place] [address] Dr. Ibis Jimenez UR MICRO IND INDICATED Normal [facility] Comment on above: Performed By: #### M DAVID #### [facility] [address] [place] [address] Dr. Ibis Jimenez Urobilinogen Qn (U) 0.2 {Dinorah'U}/dL Normal 0.2 - 1. 0 [facility] Comment on above: Performed By: #### M DAVID #### [facility] [address] [place] [address] Dr. Ibis Jimenez ETHANOL (BLD ALC)on 06-20-19 23 ALC NOTE NOTE: 80 mg/dl is the legal limit for a blood alcohol level Normal [facility] Comment on above: Performed By: #### A MM #### [facility] [address] [place] [address] Dr. Ibis Jimenez Ethanol [Mass/Vol] mg/dL Normal [facility] Comment on above: Performed By: #### A MM #### [facility] [address] [place] [address] Dr. Ibis Jimenez POINT OF CARE GLUCOSEon 05-23 Glucose [Mass/Vol] 88 mg/dL Normal 74-106 [facility] Comment on above: Performed By: #### C VDTB #### [facility] [address] [place] [address] Dr. Ibis Jimenez URon 06-19-2022 , QUAL Negative Normal NEGATIVE [facility] Comment on above: Performed By: #### M DAVID #### [facility] [address] [address] [address] Ibis Jimenez PROF CHEM 8 (BAS METB)on Anion gap [Moles/Vol] 12.6 mmol/L Normal [facility] Comment on above: Performed By: #### A MM #### [facility] [address] [place] [address] Dr. Ibis Jimenez Calcium [Mass/Vol] 8.4 mg/dL Critically low 8.5-10.1 [facility] Comment on above: Performed By: #### A MM #### [facility] [address] [place] [address] Dr. Ibis Jimenez Chloride [Moles/Vol] 107 mmol/L Normal 98-107 [facility] Comment on above: Performed By: #### A MM #### [facility] [address] [place] [address] Dr. Ibis Jimenez CO2 [Moles/Vol] 22.5 mmol/L Normal 21.0-32.0 [facility] Comment on above: Performed By: #### A MM #### [facility] [address] [place] [address] Dr. Ibis Jimenez Creatinine [Mass/Vol] 0.82 mg/dL Normal 0.55-1.02 [facility] Comment on above: Performed By: #### A MM #### [facility] [address] [place] [address] Dr. Ibis Jimenez EGFR-AF SWISS >60 Normal >=60 [facility] Comment on above: Performed By: #### A MM #### [facility] [address] [place] [address] Dr. Ibis Jimenez EGFR-NON AF SWISS >60 Normal >=60 [facility] Comment on above: Performed By: #### A MM #### [facility] [address] [address] [address] Ibis Jimenez Glucose [Mass/Vol] 87 mg/dL Normal 74-106 [facility] Comment on above: Performed By: #### A MM #### [facility] [address] [address] [address] Ibis Jimenez Potassium [Moles/Vol] 4.1 mmol/L Normal 3.5-5.1 [facility] Comment on above: Performed By: #### A MM #### [facility] [address] [address] [address] Ibis Jimenez Sodium [Moles/Vol] 138 mmol/L Normal 136-145 [facility] Comment on above: Performed By: #### A MM #### [facility] [address] [address] [address] Ibis Jimenez Urea nitrogen [Mass/Vol] 22.0 mg/dL Critically high 7.0-18.0 [facility] Comment on above: Performed By: #### A MM #### [facility] [address] [address] [address] Ibis Jimenez Urea nitrogen/Creatinine [Mass ratio] 26.8 mg/mg Normal [facility] Comment on above: Performed By: #### A MM #### [facility] [address] [address] [address] Ibis Jimenez SALICYLATEon 06-19-2022 SALICYLATE <2.8 Normal <=19.9 [facility] Comment on above: Performed By: #### A CET, SALYC #### [facility] [address] [address] [address] Ibis Jimenez URINE MICROSCOPIC ONLYon BACTERIA NONE SEEN Normal NONE SEEN [facility] Comment on above: Performed By: #### M DAVID #### [facility] [address] [address] [address] Ibis Jimenez Bacteria identified Cx Nom (U) NOT INDICATED Normal [facility] Comment on above: Performed By: #### M DAVID #### [facility] [address] [address] [address] Ibis Jimenez CAST SEEN Abnormal NONE SEEN [facility] Comment on above: Performed By: #### M DAVID #### [facility] [address] [address] [address] Ibis Jimenez Crystals LM Nom (Urine sed) NONE SEEN Normal NONE SEEN [facility] Comment on above: Performed By: #### M DAVID #### [facility] [address] [place] [address] Dr. Ibis Jimenez Epithelial cells LM Ql (Urine sed) MODERATE Abnormal NONE SEEN /RARE [facility] Comment on above: Performed By: #### M DAVID #### [facility] [address] [place] [address] Dr. Ibis Jimenez HYALINE CAST FEW Normal [facility] Comment on above: Performed By: #### M DAVID #### [facility] [address] [place] [address] Dr. Ibis Jimenez MUCOUS NONE SEEN Normal NONE SEEN [facility] Comment on above: Performed By: #### M DAVID #### [facility] [address] [place] [address] Dr. Ibis Jimenez RBC 2-5 Abnormal 0-2 [facility] Comment on above: Performed By: #### M DAVID #### [facility] [address] [place] [address] Dr. Ibis Jimenez WBC NONE SEEN Normal NONE SEEN [facility] Comment on above: Performed By: #### M DAVID #### [facility] [address] [place] [address] Dr. Ibis Jimenez CBC AUTO DIFFon 06-11-2022 BASO # 0.0 103/ul Normal 0.0-0.1 [facility] Comment on above: Performed By: #### C VDTBH #### [facility] [address] [place] [address] Dr. Ibis Jimenez Basophils/100 WBC (Bld) 0.3 % Normal 0.2-2.0 [facility] Comment on above: Performed By: #### C VDTBH #### [facility] [address] [address] [address] Ibis Jimenez EO # 0.0 103/ul Normal 0.0-0.7 [facility] Comment on above: Performed By: #### C VDTBH #### [facility] [address] [place] [address] Dr. Ibis Jimenez Eosinophils/100 WBC (Bld) 0.1 % Critically low 0.9-7.0 [facility] Comment on above: Performed By: #### C VDTBH #### [facility] [address] [place] [address] Dr. Ibis Jimenez Erythrocyte distribution width (RBC) [Ratio] 13.2 % Normal 11.0-15.0 [facility] Comment on above: Performed By: #### C VDTBH #### [facility] [address] [place] [address] Dr. Ibis Jimenez Hematocrit (Bld) [Volume fraction] 38.5 % Normal 36.0-48.0 [facility] Comment on above: Performed By: #### C VDTBH #### [facility] [address] [place] [address] Dr. Ibis Jimenez Hemoglobin (Bld) [Mass/Vol] 12.4 g/dL Normal 12.0-16.0 [facility] Comment on above: Performed By: #### C VDTBH #### [facility] [address] [place] [address] Dr. Ibis Jimenez IG # 0.20 10e3/ul Critically high 0.00-0.03 [facility] Comment on above: Performed By: #### C VDTBH #### [facility] [address] [place] [address] Dr. Ibis Jimenez IG % 1.8 % Critically high 0.0-0.5 [facility] Comment on above: Performed By: #### C VDTBH #### [facility] [address] [place] [address] Dr. Ibis Jimenez LYMPH # 0.5 103/ul Critically low 1.2-3.8 [facility] Comment on above: Performed By: #### C VDTBH #### [facility] [address] [place] [address] Dr. Ibis Jimenez Lymphocytes/100 WBC (Bld) 4.6 % Critically low 20.5-60.0 [facility] Comment on above: Performed By: #### C VDTBH #### [facility] [address] [place] [address] Dr. Ibis Jimenez MANUAL DIFF REQ NO Normal [facility] Comment on above: Performed By: #### C VDTBH #### [facility] [address] [place] [address] Dr. Ibis Jimenez MCH (RBC) [Entitic mass] 28.2 pg Normal 26.7-34.0 [facility] Comment on above: Performed By: #### C VDTBH #### [facility] [address] [place] [address] Dr. Ibis iJmenez MCHC (RBC) [Mass/Vol] 32.2 g/dL Normal 29.9-35.2 [facility] Comment on above: Performed By: #### C VDTBH #### [facility] [address] [place] [address] Dr. Ibis Jimenez MCV (RBC) [Entitic vol] 87.5 fL Normal 81.0-99.0 [facility] Comment on above: Performed By: #### C VDTBH #### [facility] [address] [place] [address] Dr. Ibis Jimenez MONO # 0.1 103/ul Critically low 0.3-0.8 [facility] Comment on above: Performed By: #### C VDTBH #### [facility] [address] [place] [address] Dr. Ibis Jimenez Monocytes/100 WBC (Bld) 1.3 % Critically low 1.7-12.0 [facility] Comment on above: Performed By: #### C VDTBH #### [facility] [address] [place] [address] Dr. Ibis Jimenez NEUT # 10.1 103/ul Critically high 1.4-6.5 [facility] Comment on above: Performed By: #### C VDTBH #### [facility] [address] [place] [address] Dr. Ibis Jimenez Neutrophils/100 WBC (Bld) 91.9 % Critically high 43.0-75.0 [facility] Comment on above: Performed By: #### C VDTBH #### [facility] [address] [place] [address] Dr. Ibis Jimenez Platelet mean volume (Bld) [Entitic vol] 9.1 fL Critically low 9.5-13.5 [facility] Comment on above: Performed By: #### C VDTBH #### [facility] [address] [place] [address] Dr. Ibis Jimenez PLT 240 103/ul Normal 150-450 [facility] Comment on above: Performed By: #### C VDTBH #### [facility] [address] [place] [address] Dr. Ibis Jimenez RBC 4.40 106/ul Normal 4.20-5.40 [facility] Comment on above: Performed By: #### C VDTBH #### [facility] [address] [place] [address] Dr. Ibis Jimenez WBC 11.0 103/ul Normal 4.0-11.0 [facility] Comment on above: Performed By: #### C VDTBH #### [facility] [address] [place] [address] Dr. Ibis Jimenez PROF 14(COMP METB)on 023 Albumin [Mass/Vol] 3.3 g/dL Critically low 3.4-5.0 [facility] Comment on above: Performed By: #### B MP #### [facility] [address] [place] [address] Dr. Ibis Jimenez Albumin/Globulin [Mass ratio] 0.9 {ratio} Normal [facility] Comment on above: Performed By: #### B MP #### [facility] [address] [place] [address] Dr. Ibis Jimenez ALP [Catalytic activity/Vol] 63 U/L Normal 46-116 [facility] Comment on above: Performed By: #### B MP #### [facility] [address] [address] [address] Ibis Jimenez ALT [Catalytic activity/Vol] 32 U/L Normal 14-59 [facility] Comment on above: Performed By: #### B MP #### [facility] [address] [address] [address] Ibis Jimenez Anion gap [Moles/Vol] 12.9 mmol/L Normal Th [facility] Comment on above: Performed By: #### B MP #### [facility] [address] [address] [address] Ibis Jimenez AST [Catalytic activity/Vol] 14 U/L Critically low 15-37 [facility] Comment on above: Performed By: #### B MP #### [facility] [address] [address] [address] Ibis Jimenez Bilirubin [Mass/Vol] 0.2 mg/dL Normal 0.2-1.0 [facility] Comment on above: Performed By: #### B MP #### [facility] [address] [place] [address] Dr. Ibis Jimenez Calcium [Mass/Vol] 8.5 mg/dL Normal 8.5-10.1 [facility] Comment on above: Performed By: #### B MP #### [facility] [address] [address] [address] Ibis Jimenez Chloride [Moles/Vol] 106 mmol/L Normal 98-107 [facility] Comment on above: Performed By: #### B MP #### [facility] [address] [address] [address] Ibis Jimenez CO2 [Moles/Vol] 26.6 mmol/L Normal 21.0-32.0 [facility] Comment on above: Performed By: #### B MP #### [facility] [address] [address] [address] Ibis Jimenez Creatinine [Mass/Vol] 0.89 mg/dL Normal 0.55-1.02 [facility] Comment on above: Performed By: #### B MP #### [facility] [address] [address] [address] Ibis Jimenez EGFR-AF SWISS >60 Normal >=60 [facility] Comment on above: Performed By: #### B MP #### [facility] [address] [address] [address] Ibis Jimenez EGFR-NON AF SWISS >60 Normal >=60 [facility] Comment on above: Performed By: #### B MP #### [facility] [address] [address] [address] Ibis Jimenez Globulin (S) [Mass/Vol] 3.6 g/dL Normal [facility] Comment on above: Performed By: #### B MP #### [facility] [address] [place] [address] Dr. Ibis Jimenez Glucose [Mass/Vol] 134 mg/dL Critically high 74-106 [facility] Comment on above: Performed By: #### B MP #### [facility] [address] [address] [address] Ibis Jimenez Potassium [Moles/Vol] 4.5 mmol/L Normal 3.5-5.1 [facility] Comment on above: Performed By: #### B MP #### [facility] [address] [address] [address] Ibis Jimenez Protein [Mass/Vol] 6.9 g/dL Normal 6.4-8.2 [facility] Comment on above: Performed By: #### B MP #### [facility] [address] [address] [address] Ibis Jimenez Sodium [Moles/Vol] 141 mmol/L Normal 136-145 [facility] Comment on above: Performed By: #### B MP #### [facility] [address] [address] [address] Ibis Jimenez Urea nitrogen [Mass/Vol] 15.0 mg/dL Normal 7.0-18.0 [facility] Comment on above: Performed By: #### B MP #### [facility] [address] [place], [place] [address] Dr. Ibis Jimenez Urea nitrogen/Creatinine [Mass ratio] 16.9 mg/mg Normal [facility] Comment on above: Performed By: #### B MP #### [facility] [address] [place], [place] [address] HEAD WO CONon [...] by: NICHOLAS MARCUS Date: 2022-05-23 19:25 Normal [facility] CT CERVICAL SPINE WITHOUT CONTRAST. [...] SINDY KING Date: 2022-05-23 19:[address] [facility] CT HEAD WO CONon 04-01-2022 CT [...] ROBIN IRBY Date: 2022-03-31 22:[address] [facility] Covid-19 PCR (CVDTB)on 03-23 SARS-CoV-2 (COVID-19) RNA SAURABH+probe Ql (Unsp spec) Not detected Normal NOT DETECTED [facility] Comment on above: Result Comment: When [...] for this test is supported by the Hotel Operations Manager of Health and Human Service's declaration [...] used). Performed By: #### C VDTB #### [facility] [address] [place] [address] Dr. Ibis Jimenez ER URINE PROFILEon 3 Bilirubin Ql (U) Negative Normal NEGATIVE [facility] Comment on above: Performed By: #### A CET, SALYC #### [facility] [address] [place] [address] Dr. Ibis Jimenez Clarity (U) CLEAR Normal CLEAR [facility] Comment on above: Performed By: #### A CET, SALYC #### [facility] [address] [place] [address] Dr. Ibis Jimenez Color (U) YELLOW Normal YELLOW [facility] Comment on above: Performed By: #### A CET, SALYC #### [facility] [address] [place] [address] Dr. Ibis Jimenez ERUAHD A micrscopic examination will be performed if indicated. Normal [facility] Comment on above: Performed By: #### A CET, SALYC #### [facility] [address] [place] [address] Dr. Ibis Jimenez Glucose Ql (U) Negative Normal NEGATIVE [facility] Comment on above: Performed By: #### A CET, SALYC #### [facility] [address] [place] [address] Dr. Ibis Jimenez Hemoglobin Ql (U) SMALL Abnormal NEGATIVE [facility] Comment on above: Performed By: #### A CET, SALYC #### [facility] [address] [place] [address] Dr. Ibis Jimenez Ketones Ql (U) Negative Normal NEGATIVE [facility] Comment on above: Performed By: #### A CET, SALYC #### [facility] [address] [place] [address] Dr. Ibis Jimenez LEUKOCYTES Negative Normal NEGATIVE [facility] Comment on above: Performed By: #### A CET, SALYC #### [facility] [address] [place] [address] Dr. Ibis Jimenez Nitrite Ql (U) Negative Normal NEGATIVE [facility] Comment on above: Performed By: #### A CET, SALYC #### [facility] [address] [place] [address] Dr. Ibis Jimenez pH (U) 5.5 [pH] Normal 5-9 [facility] Comment on above: Performed By: #### A CET, SALYC #### [facility] [address] [place] [address] Dr. Ibis Jimenez SPEC GRAVITY >=1.030 Abnormal 1.005-<=1.02 5 [facility] Comment on above: Performed By: #### A CET, SALYC #### [facility] [address] [place] [address] Dr. Ibis Jimenez UA PROTEIN Negative Normal NEGATIVE/ TRACE [facility] Comment on above: Performed By: #### A CET, SALYC #### [facility] [address] [place] [address] Dr. Ibis Jimenez UR MICRO IND INDICATED Normal [facility] Comment on above: Performed By: #### A CET, SALYC #### [facility] [address] [place] [address] Dr. Ibis Jimenez Urobilinogen Qn (U) 0.2 {Dinorah'U}/dL Normal 0.2 - 1. 0 [facility] Comment on above: Performed By: #### A CET, SALYC #### [facility] [address] [place] [address] Dr. Ibis Jimenez INFLUENZA A AND B AGon 04-01 INFLUANEGH SEE BELOW Normal [facility] Comment on above: Result Comment: Nega tive for Flu A protein angiten. Infection due to Flu A cannot be ruled out. Flu A angiten in the sample may be below the detection limit of the test. Performed By: #### A MM #### [facility] [address] [place] [address] Dr. Ibis Jimenez [facility] SEE BELOW Normal [facility] Comment on above: Result Comment: Nega tive for Flu B protein antigen. Infection due to Flu B cannot be ruled out. Flu B antigen in the sample may be below the detection limit of the test. Performed By: #### A MM #### [facility] [address] [place] [address] Dr. Ibis Jimenez INFLUENZA A AG Negative Normal NEGATIVE SEE COMMENT [facility] Comment on above: Performed By: #### A MM #### [facility] [address] [place] [address] Dr. Ibis Jimenez INFLUENZA B AG Negative Normal NEGATIVE SEE COMMENT [facility] Comment on above: Performed By: #### A MM #### [facility] [address] [place] [address] Dr. Ibis Jimenez LACTATE/LACTIC ACIDon 2022 Lactate [Moles/Vol] 1.9 mmol/L Normal 0.4-1.9 [facility] Comment on above: Performed By: #### L ACT #### [facility] [address] [place] [address] Dr. Ibis Jimenez URINE MICROSCOPIC ONLYon BACTERIA TRACE Abnormal NONE SEEN [facility] Comment on above: Performed By: #### A CET, SALYC #### [facility] [address] [place] [address] Dr. Ibis Jimenez Bacteria identified Cx Nom (U) NOT INDICATED Normal [facility] Comment on above: Performed By: #### A CET, SALYC #### [facility] [address] [place] [address] Dr. Ibis Jimenez CAST NONE SEEN Normal NONE SEEN [facility] Comment on above: Performed By: #### A CET, SALYC #### [facility] [address] [place] [address] Dr. Ibis Jimenez Crystals LM Nom (Urine sed) NONE SEEN Normal NONE SEEN [facility] Comment on above: Performed By: #### A CET, SALYC #### [facility] [address] [place] [address] Dr. Ibis Jimenez Epithelial cells LM Ql (Urine sed) RARE Normal NONE SEEN /RARE [facility] Comment on above: Performed By: #### A CET, SALYC #### [facility] [address] [place] [address] Dr. Ibis Jimenez MUCOUS TRACE Abnormal NONE SEEN [facility] Comment on above: Performed By: #### A CET, SALYC #### [facility] [address] [place] [address] Dr. Ibis Jimenez RBC 0-2 Normal 0-2 [facility] Comment on above: Performed By: #### A CET, SALYC #### [facility] [address] [place] [address] Dr. Ibis Jimenez WBC NONE SEEN Normal NONE SEEN [facility] Comment on above: Performed By: #### A CET, SALYC #### [facility] [address] [place] [address] Dr. Ibis Jimenez AMMONIAon 03-31-2022 Ammonia (P) [Moles/Vol] 31 umol/L Normal 11-32 [facility] Comment on above: Performed By: #### A MM #### [facility] [address] [place] [address] Dr. Ibis Jimenez CBC AUTO DIFFon 03-31-2022 BASO # 0.0 103/ul Normal 0.0-0.1 [facility] Comment on above: Performed By: #### A MM #### [facility] [address] [place] [address] Dr. Ibis Jimenez Basophils/100 WBC (Bld) 0.4 % Normal 0.2-2.0 [facility] Comment on above: Performed By: #### A MM #### [facility] [address] [place] [address] Dr. Ibis Jimenez EO # 0.5 103/ul Normal 0.0-0.7 [facility] Comment on above: Performed By: #### A MM #### [facility] [address] [place] [address] Dr. Ibis Jimenez Eosinophils/100 WBC (Bld) 6.4 % Normal 0.9-7.0 [facility] Comment on above: Performed By: #### A MM #### [facility] [address] [place] [address] Dr. Ibis Jimenez Erythrocyte distribution width (RBC) [Ratio] 12.8 % Normal 11.0-15.0 [facility] Comment on above: Performed By: #### A MM #### [facility] [address] [place] [address] Dr. Ibis Jimenez Hematocrit (Bld) [Volume fraction] 36.6 % Normal 36.0-48.0 [facility] Comment on above: Performed By: #### A MM #### [facility] [address] [place] [address] Dr. Ibis Jimenez Hemoglobin (Bld) [Mass/Vol] 12.5 g/dL Normal 12.0-16.0 [facility] Comment on above: Performed By: #### A MM #### [facility] [address] [place] [address] Dr. Ibis Jimenez IG # 0.02 10e3/ul Normal 0.00-0.03 [facility] Comment on above: Performed By: #### A MM #### [facility] [address] [place] [address] Dr. Ibis Jimenez IG % 0.3 % Normal 0.0-0.5 [facility] Comment on above: Performed By: #### A MM #### [facility] [address] [place] [address] Dr. Ibis Jimenez LYMPH # 2.0 103/ul Normal 1.2-3.8 [facility] Comment on above: Performed By: #### A MM #### [facility] [address] [place] [address] Dr. Ibis Jimenez Lymphocytes/100 WBC (Bld) 25.0 % Normal 20.5-60.0 [facility] Comment on above: Performed By: #### A MM #### [facility] [address] [place] [address] Dr. Ibis Jimenez MANUAL DIFF REQ NO Normal [facility] Comment on above: Performed By: #### A MM #### [facility] [address] [address] [address] Ibis Jimenez MCH (RBC) [Entitic mass] 29.5 pg Normal 26.7-34.0 [facility] Comment on above: Performed By: #### A MM #### [facility] [address] [place] [address] Dr. Ibis Jimenez MCHC (RBC) [Mass/Vol] 34.2 g/dL Normal 29.9-35.2 [facility] Comment on above: Performed By: #### A MM #### [facility] [address] [place] [address] Dr. Ibis Jimenez MCV (RBC) [Entitic vol] 86.3 fL Normal 81.0-99.0 [facility] Comment on above: Performed By: #### A MM #### [facility] [address] [place] [address] Dr. Ibis Jimenez MONO # 0.4 103/ul Normal 0.3-0.8 [facility] Comment on above: Performed By: #### A MM #### [facility] [address] [place] [address] Dr. Ibis Jimenez Monocytes/100 WBC (Bld) 5.6 % Normal 1.7-12.0 [facility] Comment on above: Performed By: #### A MM #### [facility] [address] [place] [address] Dr. Ibis Jimenez NEUT # 4.9 103/ul Normal 1.4-6.5 [facility] Comment on above: Performed By: #### A MM #### [facility] [address] [place] [address] Dr. Ibis Jimenez Neutrophils/100 WBC (Bld) 62.3 % Normal 43.0-75.0 [facility] Comment on above: Performed By: #### A MM #### [facility] [address] [place] [address] Dr. Ibis Jimenez Platelet mean volume (Bld) [Entitic vol] 9.5 fL Normal 9.5-13.5 [facility] Comment on above: Performed By: #### A MM #### [facility] [address] [place] [address] Dr. Ibis Jimenez PLT 246 103/ul Normal 150-[address] [facility] Comment on above: Performed By: #### A MM #### [facility] [address] [place] [address] Dr. Ibis Jimenez RBC 4.24 106/ul Normal 4.20-5.40 [facility] Comment on above: Performed By: #### A MM #### [facility] [facility] [address] [place] [address] Dr. Ibis Jimenez WBC 7.8 103/ul Normal 4.0-11.0 [facility] Comment on above: Performed By: #### A MM #### [facility] [address] [place] [address] Dr. Ibis Jimenez CULTURE BLOODon 03-31-2022 Microscopic examination of blood, culture Culture Observations: NO GROWTH AT 5 DAYS. Normal [facility] Comment on above: Performed By: #### B [id number] #### [facility] [address] [place] [address] Dr. Ibis Jimenez Microscopic examination of blood, culture Culture Observations: NO GROWTH AT 5 DAYS. Normal [facility] Comment on above: Performed By: #### B MP #### [facility] [address] [place] [address] Dr. Ibis Jimenez LACTATE/LACTIC ACIDon 2022 Lactate [Moles/Vol] 2.8 mmol/L Critically high 0.4-1.9 [facility] Comment on above: Performed By: #### C VDTBH #### [facility] [address] [place] [address] Dr. Ibis Jimenez PROF 14(COMP METB)on 023 Albumin [Mass/Vol] 3.4 g/dL Normal 3.4-5.0 [facility] Comment on above: Performed By: #### B MP #### [facility] [address] [place] [address] Dr. Ibis Jimenez Albumin/Globulin [Mass ratio] 1.2 {ratio} Normal [facility] Comment on above: Performed By: #### B MP #### [facility] [address] [address] [address] Ibis Jimenez ALP [Catalytic activity/Vol] 85 U/L Normal 46-116 [facility] Comment on above: Performed By: #### B MP #### [facility] [address] [address] [address] Ibis Jimenez ALT [Catalytic activity/Vol] 18 U/L Normal 14-59 [facility] Comment on above: Performed By: #### B MP #### [facility] [address] [address] [address] Ibis Jimenez Anion gap [Moles/Vol] 13.2 mmol/L Normal [facility] Comment on above: Performed By: #### B MP #### [facility] [address] [address] [address] Ibis Jimenez AST [Catalytic activity/Vol] 11 U/L Critically low 15-37 [facility] Comment on above: Performed By: #### B MP #### [facility] [address] [address] [address] Ibis Jimenez Bilirubin [Mass/Vol] 0.2 mg/dL Normal 0.2-1.0 [facility] Comment on above: Performed By: #### B MP #### [facility] [address] [address] [address] Ibis Jimenez Calcium [Mass/Vol] 8.6 mg/dL Normal 8.5-10.1 [facility] Comment on above: Performed By: #### B MP #### [facility] [address] [address] [address] Ibis Jimenez Chloride [Moles/Vol] 105 mmol/L Normal 98-107 [facility] Comment on above: Performed By: #### B MP #### [facility] [address] [address] [address] Ibis Jimenez CO2 [Moles/Vol] 25.1 mmol/L Normal 21.0-32.0 [facility] Comment on above: Performed By: #### B MP #### [facility] [address] [address] [address] Ibis Jimenez Creatinine [Mass/Vol] 0.80 mg/dL Normal 0.55-1.02 [facility] Comment on above: Performed By: #### B MP #### [facility] [address] [address] [address] Ibis Jimenez EGFR-AF SWISS >60 Normal >=60 [facility] Comment on above: Performed By: #### B MP #### [facility] [address] [address] [address] Ibis Jimenez EGFR-NON AF SWISS >60 Normal >=60 [facility] Comment on above: Performed By: #### B MP #### [facility] [address] [address] [address] Ibis Jimenez Globulin (S) [Mass/Vol] 2.9 g/dL Normal [facility] Comment on above: Performed By: #### B MP #### [facility] [address] [address] [address] Ibis Jimenez Glucose [Mass/Vol] 99 mg/dL Normal 74-106 [facility] Comment on above: Performed By: #### B MP #### [facility] [address] [address] [address] Ibis Jimenez Potassium [Moles/Vol] 3.3 mmol/L Critically low 3.5-5.1 [facility] Comment on above: Performed By: #### B MP #### [facility] [address] [address] [address] Ibis Jimenez Protein [Mass/Vol] 6.3 g/dL Critically low 6.4-8.2 [facility] Comment on above: Performed By: #### B MP #### [facility] [address] [address] [address] Ibis Jimenez Sodium [Moles/Vol] 140 mmol/L Normal 136-145 [facility] Comment on above: Performed By: #### B MP #### [facility] [address] [place] [address] Dr. Ibis Jimenez Urea nitrogen [Mass/Vol] 10.0 mg/dL Normal 7.0-18.0 [facility] Comment on above: Performed By: #### B MP #### [facility] [address] [place] [address] Dr. Ibis Jimenez Urea nitrogen/Creatinine [Mass ratio] 12.5 mg/mg Normal [facility] Comment on above: Performed By: #### B MP #### [facility] [address] [place] [address] Dr. Ibis Jimenez CBC AUTO DIFFon 01-14-2022 BASO # 0.0 103/ul Normal 0.0-0.1 [facility] Comment on above: Performed By: #### A MM #### [facility] [address] [place] [address] Dr. Ibis Jimenez Basophils/100 WBC (Bld) 0.3 % Normal 0.2-2.0 [facility] Comment on above: Performed By: #### A MM #### [facility] [address] [place] [address] Dr. Ibis Jimenez EO # 0.2 103/ul Normal 0.0-0.7 [facility] Comment on above: Performed By: #### A MM #### [facility] [address] [place] [address] Dr. Ibis Jimenez Eosinophils/100 WBC (Bld) 2.7 % Normal 0.9-7.0 [facility] Comment on above: Performed By: #### A MM #### [facility] [address] [place] [address] Dr. Ibis Jimenez Erythrocyte distribution width (RBC) [Ratio] 13.2 % Normal 11.0-15.0 [facility] Comment on above: Performed By: #### A MM #### [facility] [address] [place] [address] Dr. Ibis Jimenez Hematocrit (Bld) [Volume fraction] 35.7 % Critically low 36.0-48.0 [facility] Comment on above: Performed By: #### A MM #### [facility] [address] [address] [address] Ibis Jimenez Hemoglobin (Bld) [Mass/Vol] 12.2 g/dL Normal 12.0-16.0 [facility] Comment on above: Performed By: #### A MM #### [facility] [address] [address] [address] Ibis Jimenez IG # 0.04 10e3/ul Critically high 0.00-0.03 [facility] Comment on above: Performed By: #### A MM #### [facility] [address] [place] [address] Dr. Ibis Jimenez IG % 0.5 % Normal 0.0-0.5 [facility] Comment on above: Performed By: #### A MM #### [facility] [address] [place] [address] Dr. Ibis Jimenez LYMPH # 2.1 103/ul Normal 1.2-3.[address] [facility] Comment on above: Performed By: #### A MM #### [facility] [address] [place] [address] Dr. Ibis Jimenez Lymphocytes/100 WBC (Bld) 27.3 % Normal 20.5-60.0 [facility] Comment on above: Performed By: #### A MM #### [facility] [address] [place] [address] Dr. Ibis Jimenez MANUAL DIFF REQ NO Normal [facility] Comment on above: Performed By: #### A MM #### [facility] [address] [place] [address] Dr. Ibis Jimenez MCH (RBC) [Entitic mass] 29.0 pg Normal 26.7-34.0 [facility] Comment on above: Performed By: #### A MM #### [facility] [address] [place] [address] Dr. Ibis Jimenez MCHC (RBC) [Mass/Vol] 34.2 g/dL Normal 29.9-35.2 [facility] Comment on above: Performed By: #### A MM #### [facility] [address] [place], [place] [id number] Dr. Ibis Jimenez MCV (RBC) [Entitic vol] 84.8 fL Normal 81.0-99.0 [facility] Comment on above: Performed By: #### A MM #### [facility] [address] [place] [address] Dr. Ibis Jimenez MONO # 0.7 103/ul Normal 0.3-0.8 [facility] Comment on above: Performed By: #### A MM #### [facility] [address] [place] [address] Dr. Ibis Jimenez Monocytes/100 WBC (Bld) 8.7 % Normal 1.7-12.0 [facility] Comment on above: Performed By: #### A MM #### [facility] [address] [place] [address] Dr. Ibis Jimenez NEUT # 4.7 103/ul Normal 1.4-6.5 [facility] Comment on above: Performed By: #### A MM #### [facility] [address] [place] [address] Dr. Ibis Jimenez Neutrophils/100 WBC (Bld) 60.5 % Normal 43.0-75.0 [facility] Comment on above: Performed By: #### A MM #### [facility] [address] [place] [address] Dr. Ibis Jimenez Platelet mean volume (Bld) [Entitic vol] 9.6 fL Normal 9.5-13.5 [facility] Comment on above: Performed By: #### A MM #### [facility] [address] [place] [address] Dr. Ibis Jimenez PLT 212 103/ul Normal 150-[address] [facility] Comment on above: Performed By: #### A MM #### [facility] [address] [place] [address] Dr. Ibis Jimenez RBC 4.21 106/ul Normal 4.20-5.40 [facility] Comment on above: Performed By: #### A MM #### [facility] [address] [place] [address] Dr. Ibis Jimenez WBC 7.7 103/ul Normal 4.0-11.0 [facility] Comment on above: Performed By: #### A MM #### [facility] [address] [address] [address] ABD/PELV W CONon [...] TONY DAHL Date: 2022-01-14 20:[address] [facility] ER URINE PROFILEon 2 Bilirubin Ql (U) Negative Normal NEGATIVE [facility] Comment on above: Performed By: #### A CET, SALYC #### [facility] [address] [place] [address] Dr. Ibis Jimenez Clarity (U) CLEAR Normal CLEAR [facility] Comment on above: Performed By: #### A CET, SALYC #### [facility] [address] [place] [address] Dr. Ibis Jimenez Color (U) LT. YELLOW Normal YELLOW [facility] Comment on above: Performed By: #### A CET, SALYC #### [facility] [address] [place] [address] Dr. Ibis Jimenez ERUSYLVAIN A micrscopic examination will be performed if indicated. Normal [facility] Comment on above: Performed By: #### A CET, SALYC #### [facility] [address] [place] [address] Dr. Ibis Jimenez Glucose Ql (U) Negative Normal NEGATIVE [facility] Comment on above: Performed By: #### A CET, SALYC #### [facility] [address] [place] [address] Dr. Ibis Jimenez Hemoglobin Ql (U) Negative Normal NEGATIVE [facility] Comment on above: Performed By: #### A CET, SALYC #### [facility] [address] [place] [address] Dr. Ibis Jimenez Ketones Ql (U) Negative Normal NEGATIVE [facility] Comment on above: Performed By: #### A CET, SALYC #### [facility] [address] [place] [address] Dr. Ibis Jimenez LEUKOCYTES TRACE Abnormal NEGATIVE [facility] Comment on above: Performed By: #### A CET, SALYC #### [facility] [address] [place] [address] Dr. Ibis Jimenez Nitrite Ql (U) Negative Normal NEGATIVE [facility] Comment on above: Performed By: #### A CET, SALYC #### [facility] [address] [place] [address] Dr. Ibis Jimenez pH (U) 5.5 [pH] Normal 5-[address] [facility] Comment on above: Performed By: #### A CET, SALYC #### [facility] [address] [address] [address] Ibis Jimenez SPEC GRAVITY 1.025 Normal 1.005-<=1.02 5 [facility] Comment on above: Performed By: #### A CET, SALYC #### [facility] [address] [address] [address] Ibis Jimenez UA PROTEIN Negative Normal NEGATIVE/ TRACE [facility] Comment on above: Performed By: #### A CET, SALYC #### [facility] [address] [address] [address] Ibis Jimenez UR MICRO IND INDICATED Normal [facility] Comment on above: Performed By: #### A CET, SALYC #### [facility] [address] [address] [address] Ibis Jimenez Urobilinogen Qn (U) 0.2 {Dinorah'U}/dL Normal 0.2 - 1. 0 [facility] Comment on above: Performed By: #### A CET, SALYC #### [facility] [address] [place] [address] Dr. Ibis Jimenez URon 01-14-2022 , QUAL Negative Normal NEGATIVE [facility] Comment on above: Performed By: #### A CET, SALYC #### [facility] [address] [place] [address] Dr. Ibis Jimenez PROF CHEM 8 (BAS METB)on Anion gap [Moles/Vol] 9.9 mmol/L Normal [facility] Comment on above: Performed By: #### B MP #### [facility] [address] [place] [address] Dr. Ibis Jimenez Calcium [Mass/Vol] 8.6 mg/dL Normal 8.5-10.1 [facility] Comment on above: Performed By: #### B MP #### [facility] [address] [address] [address] Ibis Jimenez Chloride [Moles/Vol] 105 mmol/L Normal 98-107 [facility] Comment on above: Performed By: #### B MP #### [facility] [address] [address] [address] Ibis Jimenez CO2 [Moles/Vol] 27.5 mmol/L Normal 21.0-32.0 [facility] Comment on above: Performed By: #### B MP #### [facility] [address] [address] [address] Ibis Jimenez Creatinine [Mass/Vol] 0.70 mg/dL Normal 0.55-1.[address] [facility] Comment on above: Performed By: #### B MP #### [facility] [address] [address] [address] Ibis Jimenez EGFR-AF SWISS >60 Normal >=60 [facility] Comment on above: Performed By: #### B MP #### [facility] [address] [place] [address] Dr. Ibis Jimenez EGFR-NON AF SWISS >60 Normal >=[address] [facility] Comment on above: Performed By: #### B MP #### [facility] [address] [place] [address] Dr. Ibis Jimenez Glucose [Mass/Vol] 83 mg/dL Normal 74-106 [facility] Comment on above: Performed By: #### B MP #### [facility] [address] [address] [address] Ibis Jimenez Potassium [Moles/Vol] 4.4 mmol/L Normal 3.5-5.[address] [facility] Comment on above: Performed By: #### B MP #### [facility] [address] [address] [address] Ibis Jimenez Sodium [Moles/Vol] 138 mmol/L Normal 136-145 [facility] Comment on above: Performed By: #### B MP #### [facility] [address] [place] [address] Dr. Ibis Jimenez Urea nitrogen [Mass/Vol] 13.0 mg/dL Normal 7.0-18.0 [facility] Comment on above: Performed By: #### B MP #### [facility] [address] [address] [address] Ibis Jimenez Urea nitrogen/Creatinine [Mass ratio] 18.6 mg/mg Normal [facility] Comment on above: Performed By: #### B MP #### [facility] [address] [place] [address] Dr. Ibis Jimenez URINE MICROSCOPIC ONLYon BACTERIA NONE SEEN Normal NONE SEEN [facility] Comment on above: Performed By: #### A CET, SALYC #### [facility] [address] [place] [address] Dr. Ibis Jimenez Bacteria identified Cx Nom (U) NOT INDICATED Normal [facility] Comment on above: Performed By: #### A CET, SALYC #### [facility] [address] [place] [address] Dr. Ibis Jimenez CAST NONE SEEN Normal NONE SEEN [facility] Comment on above: Performed By: #### A CET, SALYC #### [facility] [address] [place] [address] Dr. Ibis Jimenez Crystals LM Nom (Urine sed) NONE SEEN Normal NONE SEEN [facility] Comment on above: Performed By: #### A CET, SALYC #### [facility] [address] [place] [address] Dr. Ibis Jimenez Epithelial cells LM Ql (Urine sed) FEW Abnormal NONE SEEN /RARE [facility] Comment on above: Performed By: #### A CET, SALYC #### [facility] [address] [place] [address] Dr. Ibis Jimenez MUCOUS NONE SEEN Normal NONE SEEN [facility] Comment on above: Performed By: #### A CET, SALYC #### [facility] [address] [place] [address] Dr. Ibis Jimenez RBC NONE SEEN Abnormal 0-[address] [facility] Comment on above: Performed By: #### A CET, SALYC #### [facility] [address] [place] [address] Dr. Ibis Jimenez WBC NONE SEEN Normal NONE SEEN [facility] Comment on above: Performed By: #### A CET, SALYC #### [facility] [address] [place] [address] Dr. Ibis Jimenez CBC AUTO DIFFon 01-07-2022 BASO # 0.0 103/ul Normal 0.0-0.1 [facility] Comment on above: Performed By: #### A CET, SALYC #### [facility] [address] [place] [address] Dr. Ibis Jimenez Basophils/100 WBC (Bld) 0.2 % Normal 0.2-2.0 [facility] Comment on above: Performed By: #### A CET, SALYC #### [facility] [address] [place] [address] Dr. Ibis Jimenez EO # 0.0 103/ul Normal 0.0-0.7 [facility] Comment on above: Performed By: #### A CET, SALYC #### [facility] [address] [place] [address] Dr. Ibis Jimenez Eosinophils/100 WBC (Bld) 0.4 % Critically low 0.9-7.0 [facility] Comment on above: Performed By: #### A CET, SALYC #### [facility] [address] [place] [address] Dr. Ibis Jimenez Erythrocyte distribution width (RBC) [Ratio] 13.2 % Normal 11.0-15.0 [facility] Comment on above: Performed By: #### A CET, SALYC #### [facility] [address] [place] [address] Dr. Ibis Jimenez Hematocrit (Bld) [Volume fraction] 39.7 % Normal 36.0-48.0 [facility] Comment on above: Performed By: #### A CET, SALYC #### [facility] [address] [place] [address] Dr. Ibis Jimenez Hemoglobin (Bld) [Mass/Vol] 13.4 g/dL Normal 12.0-16.0 [facility] Comment on above: Performed By: #### A CET, SALYC #### [facility] [address] [place] [address] Dr. Ibis Jimenez IG # 0.06 10e3/ul Critically high 0.00-0.03 [facility] Comment on above: Performed By: #### A CET, SALYC #### [facility] [address] [address] [address] Ibis Jimenez IG % 0.5 % Normal 0.0-0.5 [facility] Comment on above: Performed By: #### A CET, SALYC #### [facility] [address] [address] [address] Ibis Jimenez LYMPH # 2.6 103/ul Normal 1.2-3.8 [facility] Comment on above: Performed By: #### A CET, SALYC #### [facility] [address] [address] [address] Ibis Jimenez Lymphocytes/100 WBC (Bld) 23.8 % Normal 20.5-60.0 [facility] Comment on above: Performed By: #### A CET, SALYC #### [facility] [address] [address] [address] Ibis Jimenez MANUAL DIFF REQ NO Normal [facility] Comment on above: Performed By: #### A CET, SALYC #### [facility] [address] [address] [address] Ibis Jimenez MCH (RBC) [Entitic mass] 28.8 pg Normal 26.7-34.0 [facility] Comment on above: Performed By: #### A CET, SALYC #### [facility] [address] [address] [address] Ibis Jimenez MCHC (RBC) [Mass/Vol] 33.8 g/dL Normal 29.9-35.2 [facility] Comment on above: Performed By: #### A CET, SALYC #### [facility] [address] [address] [address] Ibis Jimenez MCV (RBC) [Entitic vol] 85.2 fL Normal 81.0-99.0 [facility] Comment on above: Performed By: #### A CET, SALYC #### [facility] [address] [address] [address] Ibis Jimenez MONO # 0.8 103/ul Normal 0.3-0.8 [facility] Comment on above: Performed By: #### A CET, SALYC #### [facility] [address] [place] [address] Dr. Ibis Jimenez Monocytes/100 WBC (Bld) 7.7 % Normal 1.7-12.0 [facility] Comment on above: Performed By: #### A CET, SALYC #### [facility] [address] [place] [address] Dr. Ibis Jimenez NEUT # 7.4 103/ul Critically high 1.4-6.5 [facility] Comment on above: Performed By: #### A CET, SALYC #### [facility] [address] [place] [address] Dr. Ibis Jimenez Neutrophils/100 WBC (Bld) 67.4 % Normal 43.0-75.0 [facility] Comment on above: Performed By: #### A CET, SALYC #### [facility] [address] [place] [address] Dr. Ibis Jimenez Platelet mean volume (Bld) [Entitic vol] 9.8 fL Normal 9.5-13.5 [facility] Comment on above: Performed By: #### A CET, SALYC #### [facility] [address] [place] [address] Dr. Ibis Jimenez PLT 261 103/ul Normal 150-[address] [facility] Comment on above: Performed By: #### A CET, SALYC #### [facility] [address] [place] [address] Dr. Ibis Jimenez RBC 4.66 106/ul Normal 4.20-5.40 [facility] Comment on above: Performed By: #### A CET, SALYC #### [facility] [address] [place] [address] Dr. Ibis Jimenez WBC 10.9 103/ul Normal 4.0-11.0 [facility] Comment on above: Performed By: #### A CET, SALYC #### [facility] [address] [place] [address] Dr. Ibis Jimenez PROF CHEM 8 (BAS METB)on Anion gap [Moles/Vol] 14.1 mmol/L Normal [facility] Comment on above: Performed By: #### B MP #### [facility] [address] [address] [address] Ibis Jimenez Calcium [Mass/Vol] 8.5 mg/dL Normal 8.5-10.1 [facility] Comment on above: Performed By: #### B MP #### [facility] [address] [address] [address] Ibis Jimenez Chloride [Moles/Vol] 103 mmol/L Normal 98-107 [facility] Comment on above: Performed By: #### B MP #### [facility] [address] [address] [address] Ibis Jimenez CO2 [Moles/Vol] 22.5 mmol/L Normal 21.0-32.0 [facility] Comment on above: Performed By: #### B MP #### [facility] [address] [address] [address] Ibis Jimenez Creatinine [Mass/Vol] 0.64 mg/dL Normal 0.55-1.02 [facility] Comment on above: Performed By: #### B MP #### [facility] [address] [place] [address] Dr. Ibis Jimenez EGFR-AF SWISS >60 Normal >=60 [facility] Comment on above: Performed By: #### B MP #### [facility] [address] [address] [address] Ibis Jimenez EGFR-NON AF SWISS >60 Normal >=60 [facility] Comment on above: Performed By: #### B MP #### [facility] [address] [address] [address] Ibis Jimenez Glucose [Mass/Vol] 141 mg/dL Critically high 74-106 [facility] Comment on above: Performed By: #### B MP #### [facility] [address] [address] [address] Ibis Jimenez Potassium [Moles/Vol] 3.6 mmol/L Normal 3.5-5.1 [facility] Comment on above: Performed By: #### B MP #### [facility] [address] [place] [address] Dr. Ibis Jimenez Sodium [Moles/Vol] 136 mmol/L Normal 136-145 [facility] Comment on above: Performed By: #### B MP #### [facility] [address] [place] [address] Dr. Ibis Jimenez Urea nitrogen [Mass/Vol] 16.0 mg/dL Normal 7.0-18.0 [facility] Comment on above: Performed By: #### B MP #### [facility] [address] [place] [address] Dr. Ibis Jimenez Urea nitrogen/Creatinine [Mass ratio] 25.0 mg/mg [facility] [facility] Comment on above: Performed By: #### B MP #### [facility] [address] [place] [address] Dr. Ibis Jimenez CBC AUTO DIFFon 11-04-2021 BASO # 0.0 103/ul Normal 0.0-0.1 [facility] Comment on above: Performed By: #### A CET, SALYC #### [facility] [address] [place] [address] Dr. Ibis Jimenez Basophils/100 WBC (Bld) 0.4 % Normal 0.2-2.0 [facility] Comment on above: Performed By: #### A CET, SALYC #### [facility] [address] [place] [address] Dr. Ibis Jimenez EO # 0.2 103/ul Normal 0.0-0.7 [facility] Comment on above: Performed By: #### A CET, SALYC #### [facility] [address] [place] [address] Dr. Ibis Jimenez Eosinophils/100 WBC (Bld) 4.1 % Normal 0.9-7.0 [facility] Comment on above: Performed By: #### A CET, SALYC #### [facility] [address] [place] [address] Dr. Ibis Jimenez Erythrocyte distribution width (RBC) [Ratio] 13.2 % Normal 11.0-15.0 [facility] Comment on above: Performed By: #### A CET, SALYC #### [facility] [address] [place] [address] Dr. Ibis Jimenez Hematocrit (Bld) [Volume fraction] 34.3 % Critically low 36.0-48.0 [facility] Comment on above: Performed By: #### A CET, SALYC #### [facility] [address] [place] [address] Dr. Ibis Jimenez Hemoglobin (Bld) [Mass/Vol] 11.5 g/dL Critically low 12.0-16.0 [facility] Comment on above: Performed By: #### A CET, SALYC #### [facility] [address] [place] [address] Dr. Ibis Jimenez IG # 0.01 10e3/ul Normal 0.00-0.03 [facility] Comment on above: Performed By: #### A CET, SALYC #### [facility] [address] [place] [address] Dr. Ibis Jimenez IG % 0.2 % Normal 0.0-0.5 [facility] Comment on above: Performed By: #### A CET, SALYC #### [facility] [address] [place] [address] Dr. Ibis Jimenez LYMPH # 1.5 103/ul Normal 1.2-3.8 [facility] Comment on above: Performed By: #### A CET, SALYC #### [facility] [address] [place] [address] Dr. Ibis Jimenez Lymphocytes/100 WBC (Bld) 26.4 % Normal 20.5-60.[address] [facility] Comment on above: Performed By: #### A CET, SALYC #### [facility] [address] [place] [address] Dr. Ibis Jimenez MANUAL DIFF REQ NO Normal [facility] Comment on above: Performed By: #### A CET, SALYC #### [facility] [address] [place] [address] Dr. Ibis Jimenez MCH (RBC) [Entitic mass] 28.8 pg Normal 26.7-34.0 [facility] Comment on above: Performed By: #### A CET, SALYC #### [facility] [address] [place] [address] Dr. Ibis Jimenez MCHC (RBC) [Mass/Vol] 33.5 g/dL Normal 29.9-35.2 [facility] Comment on above: Performed By: #### A CET, SALYC #### [facility] [address] [place] [address] Dr. Ibis Jimenez MCV (RBC) [Entitic vol] 86.0 fL Normal 81.0-99.0 [facility] Comment on above: Performed By: #### A CET, SALYC #### [facility] [address] [place] [address] Dr. Ibis Jimenez MONO # 0.5 103/ul Normal 0.3-0.8 [facility] Comment on above: Performed By: #### A CET, SALYC #### [facility] [address] [place] [address] Dr. Ibis Jimenez Monocytes/100 WBC (Bld) 8.2 % Normal 1.7-12.0 [facility] Comment on above: Performed By: #### A CET, SALYC #### [facility] [address] [place] [address] Dr. Ibis Jimenez NEUT # 3.4 103/ul Normal 1.4-6.5 [facility] Comment on above: Performed By: #### A CET, SALYC #### [facility] [address] [place] [address] Dr. Ibis Jimenez Neutrophils/100 WBC (Bld) 60.7 % Normal 43.0-75.0 [facility] Comment on above: Performed By: #### A CET, SALYC #### [facility] [address] [place] [address] Dr. Ibis Jimenez Platelet mean volume (Bld) [Entitic vol] 9.9 fL Normal 9.5-13.5 [facility] Comment on above: Performed By: #### A CET, SALYC #### [facility] [address] [address] [address] Ibis Jimenez PLT 222 103/ul Normal 150-450 [facility] Comment on above: Performed By: #### A CET, SALYC #### [facility] [address] [address] [address] Ibis Jimenez RBC 3.99 106/ul Critically low 4.20-5.40 [facility] Comment on above: Performed By: #### A CET, SALYC #### [facility] [address] [address] [address] Ibis Jimenez WBC 5.6 103/ul Normal 4.0-11.0 [facility] Comment on above: Performed By: #### A CET, SALYC #### [facility] [address] [place] [address] Dr. Ibis Jimenez PROF CHEM 8 (BAS METB)on Anion gap [Moles/Vol] 10.5 mmol/L Normal [facility] Comment on above: Performed By: #### B MP #### [facility] [address] [place] [address] Dr. Ibis Jimenez Calcium [Mass/Vol] 8.8 mg/dL Normal 8.5-10.1 [facility] Comment on above: Performed By: #### B MP #### [facility] [address] [place] [address] Dr. Ibis Jimenez Chloride [Moles/Vol] 105 mmol/L Normal 98-107 [facility] Comment on above: Performed By: #### B MP #### [facility] [address] [place] [address] Dr. Ibis Jimenez CO2 [Moles/Vol] 24.9 mmol/L Normal 21.0-32.0 [facility] Comment on above: Performed By: #### B MP #### [facility] [address] [place] [address] Dr. Ibis Jimenez Creatinine [Mass/Vol] 0.71 mg/dL Normal 0.55-1.02 [facility] Comment on above: Performed By: #### B MP #### [facility] [address] [address] [address] Ibis Jimenez EGFR-AF SWISS >60 Normal >=60 [facility] Comment on above: Performed By: #### B MP #### [facility] [address] [address] [address] Ibis Jimenez EGFR-NON AF SWISS >60 Normal >=[address] [facility] Comment on above: Performed By: #### B MP #### [facility] [address] [address] [address] Ibis iJmenez Glucose [Mass/Vol] 103 mg/dL Normal 74-106 [facility] Comment on above: Performed By: #### B MP #### [facility] [address] [address] [address] Ibis Jimenez Potassium [Moles/Vol] 3.4 mmol/L Critically low 3.5-5.1 [facility] Comment on above: Performed By: #### B MP #### [facility] [address] [address] [address] Ibis Jimenez Sodium [Moles/Vol] 137 mmol/L Normal 136-145 [facility] Comment on above: Performed By: #### B MP #### [facility] [address] [address] [address] Ibis Jimenez Urea nitrogen [Mass/Vol] 17.0 mg/dL Normal 7.0-18.0 [facility] Comment on above: Performed By: #### B MP #### [facility] [address] [address] [address] Ibis Jimenez Urea nitrogen/Creatinine [Mass ratio] 23.9 mg/mg Normal [facility] Comment on above: Performed By: #### B MP #### [facility] [address] [address] [address] Ibis Jimenez Basic Metab w/rfx MGon 10-20 (cont.) Normal [facility] Comment on above: Result Comment: Aver age GFR for 20-29 years old: 116 mL/min/1.73sq m Chronic Kidney Disease: <60 mL/min/1.73sq m Kidney failure: <15 mL/min/1.73sq m eGFR calculated using average adult body mass. Additional eGFR calculator available at: http://www.[employer].AppMesh/multiple_crcl_2012.htm Performed By: #### B MPX #### [facility] [address] [place] [address] Electrical Unit Rebuilder: Tavon Nicole MD Anion gap [Moles/Vol] 10 mmol/L Normal 9-17 [facility] Comment on above: Performed By: #### B MPX #### [address] [address] Electrical Unit Rebuilder: Tavon Nicole MD Calcium [Mass/Vol] 7.8 mg/dL Low 8.6-10.4 [facility] Comment on above: Performed By: #### B MPX #### [address] [address] Electrical Unit Rebuilder: Tavon Nicole MD Chloride [Moles/Vol] 109 mmol/L High 98-107 [facility] Comment on above: Performed By: #### B MPX #### [facility] [address] [place] [address] Electrical Unit Rebuilder: Tavon Nicole MD CO2 [Moles/Vol] 20 mmol/L Normal 20-31 [facility] Comment on above: Performed By: #### B MPX #### [facility] [address] [place] [address] Electrical Unit Rebuilder: Tavon Nicole MD Creatinine [Mass/Vol] 0.45 mg/dL Low 0.50-0.90 [facility] Comment on above: Performed By: #### B MPX #### [address] [address] Electrical Unit Rebuilder: Tavon Nicole MD GFR, Amer >60 Normal >60 [facility] Comment on above: Performed By: #### B MPX #### [address] [address] Electrical Unit Rebuilder: Tavon Nicole MD GFR,non Amer >60 Normal >60 [facility] Comment on above: Performed By: #### B MPX #### [address] [address] Electrical Unit Rebuilder: Tavon Nicole MD Glucose [Mass/Vol] 84 mg/dL Normal 70-99 [facility] Comment on above: Performed By: #### B MPX #### [address] [address] Electrical Unit Rebuilder: Tavon Nicole MD Potassium [Moles/Vol] 4.1 mmol/L Normal 3.7-5.3 [facility] Comment on above: Result Comment: SPEC IMEN SLIGHTLY HEMOLYZED, RESULTS MAY BE ADVERSELY AFFECTED. Performed By: #### B MPX #### [address] [address] Electrical Unit Rebuilder: Tavon Nicole MD Sodium [Moles/Vol] 139 mmol/L Normal 135-144 [facility] Comment on above: Performed By: #### B MPX #### [address] [address] Electrical Unit [employer]builder: Tavon Nicole MD Urea nitrogen [Mass/Vol] 8 mg/dL Normal 6-20 [facility] Comment on above: Performed By: #### B MPX #### [address] [address] Electrical Unit Rebuilder: Tavon Nicole MD Basic Metabolic Panel w/ Ref rossi to MGon 10-20-2021 Anion gap [Moles/Vol] 10 mmol/L 9 - 17 mmol/L [facility] Calcium [Mass/Vol] 7.8 mg/dL Low 8.6 - 10. 4 mg/dL [facility] Chloride [Moles/Vol] 109 mmol/L High 98 - 10 7 mmol/L [facility] CO2 [Moles/Vol] 20 mmol/L 20 - 31 mmol/L [facility] Creatinine [Mass/Vol] 0.45 mg/dL Low 0.5 - 0.9 mg/dL [facility] GFR >60 60 - PI NF mL/min [facility] GFR Non- >60 60 - PINF mL/min [facility] GFR/1.73 sq M.predicted MDRD (S/P/Bld) [Vol rate/Area] [facility] Comment on above: Average GFR for 20-2 9 years old: 116 mL/min/1.73sq m Chronic Kidney Disease: <60 mL/min/1.73sq m Kidney failure: <15 mL/min/1.73sq m eGFR calculated using average adult body mass. Additional eGFR calculator available at: http://www.[employer]/multiple_crcl_2012.htm Glucose [Mass/Vol] 84 mg/dL 70 - 99 mg/dL [facility] Interpretation and review of laboratory results Abnormal [facility] Potassium [Moles/Vol] 4.1 mmol/L 3.7 - 5.3 mmol/L [facility] Comment on above: SPECIMEN SLIGHTLY HE MOLYZED, RESULTS MAY BE ADVERSELY AFFECTED. Sodium [Moles/Vol] 139 mmol/L 135 - 144 mmol/L [facility] Urea nitrogen (BldV) [Mass/Vol] 8 mg/dL 6 - 20 mg/dL [facility] CBC with Auto Differentialon 10-20-2021 Absolute E[facility] # 0.15 [facility] Absolute Immature Granulocyte [facility] Absolute Lymph # 1.48 [facility] Absolute [place] # 0.28 [facility] Basophils (Bld) [#/Vol] 0.03 10*3/uL [facility] Basophils/100 WBC (Bld) 1 % 0 - 2 % [facility] Eosinophils/100 WBC (Bld) 3 % 1 - 4 % [facility] Hematocrit (Bld) [Volume fraction] 35.5 % Low 36.3 - 47.1 % [facility] Hemoglobin (Bld) [Mass/Vol] 11.3 g/dL Low 11.9 - 15.1 g/dL [facility] Immature granulocytes/100 WBC (Bld) 0 % 0 [facility] Interpretation and review of laboratory results Abnormal [facility] Lymphocytes/100 WBC (Bld) 34 % 24 - 43 % [facility] MCH (RBC) [Entitic mass] 27.9 pg 25.2 - 33.5 pg [facility] MCHC (RBC) [Mass/Vol] 31.8 g/dL 28.4 - 34.8 g/dL [facility] MCV (RBC) [Entitic vol] 87.7 fL 82.6 - 102.9 fL [facility] Monocytes/100 WBC (Bld) 6 % 3 - 12 % B ON [facility] NRBC Automated 0.0 0.0 per 100 WBC [facility] Platelet distribution width (Bld) [Ratio] 12.9 % 11.8 - 14.4 % [facility] Platelets (Bld) [#/Vol] See Reflexed IPF Result [facility] RBC (Bld) [#/Vol] 4.05 10*6/uL 3.95 - 5.1 1 m/uL [facility] Segmented neutrophils/100 WBC (Bld) 55 % 36 - 65 % [facility] Segs Absolute 2.42 [facility] WBC (Bld) [#/Vol] 4.4 10*3/uL [facility] CBC with Diffon 10-20-2021 Abs. Basophil 0.03 k/uL Normal 0.00-0.20 [facility] Comment on above: Performed By: #### C DP, IPF #### [facility] [address] [place], [place] [id number] Electrical Unit Rebuilder: Tavon Nicole MD Abs.Imm.Granulocyte <0.03 Normal 0.00-0.30 [facility] Comment on above: Performed By: #### C DP, IPF #### [address] [address] Electrical Unit Rebuilder: Tavon Nicole MD Abs.Neutrophil (Seg) 2.42 k/uL Normal 1.50-8.10 [facility] Comment on above: Performed By: #### C DP, IPF #### [address] [address] Electrical Unit Rebuilder: Tavon Nicole MD Basophils/100 WBC (Bld) 1 % Normal 0-2 [facility] Comment on above: Performed By: #### C DP, IPF #### [address] [address] Electrical Unit Rebuilder: Tavon Nicole MD Eosinophils (Bld) [#/Vol] 0.15 10*3/uL Normal 0.00-0.44 [facility] Comment on above: Performed By: #### C DP, IPF #### [address] [address] Electrical Unit Rebuilder: Tavon Nicole MD Eosinophils/100 WBC (Bld) 3 % Normal 1-4 [facility] Comment on above: Performed By: #### C DP, IPF #### [address] [address] Electrical Unit Rebuilder: Tavon Nicole MD Immature granulocytes/100 WBC (Bld) 0 % Normal 0 [facility] Comment on above: Performed By: #### C DP, IPF #### [address] [address] Electrical Unit Rebuilder: Tavon Nicole MD Lymphocytes (Bld) [#/Vol] 1.48 10*3/uL Normal 1.10-3.70 [facility] Comment on above: Performed By: #### C DP, IPF #### [address] [place] [address] Electrical Unit Rebuilder: Tavon Nicole MD Lymphocytes/100 WBC (Bld) 34 % Normal 24-43 [facility] Comment on above: Performed By: #### C DP, IPF #### [address] [address] Electrical Unit Rebuilder: Tavon Nicole MD Monocytes (Bld) [#/Vol] 0.28 10*3/uL Normal 0.10-1.20 [facility] Comment on above: Performed By: #### C DP, IPF #### [address] [address] Electrical Unit Rebuilder: Tavon Nicole MD Monocytes/100 WBC (Bld) 6 % Normal 3-12 [facility] Comment on above: Performed By: #### C DP, IPF #### [address] [address] Electrical Unit Rebuilder: Tavon Nicole MD Neutrophil (Seg) 55 % Normal 36-65 [facility] Comment on above: Performed By: #### C DP, IPF #### [address] [address] Electrical Unit Rebuilder: Tavon Nicole MD Erythrocyte distribution width (RBC) [Ratio] 12.9 % Normal 11.8-14.4 [facility] Comment on above: Performed By: #### C DP, IPF #### [address] [address] Electrical Unit Rebuilder: Tavon Nicole MD Hematocrit (Bld) [Volume fraction] 35.5 % Low 36.3-47.1 [facility] Comment on above: Performed By: #### C DP, IPF #### [address] [address] Electrical Unit Rebuilder: Tavon Nicole MD Hemoglobin (Bld) [Mass/Vol] 11.3 g/dL Low 11.9-15.1 [facility] Comment on above: Performed By: #### C DP, IPF #### [address] [address] Electrical Unit Rebuilder: Tavon Nicole MD MCH (RBC) [Entitic mass] 27.9 pg Normal 25.2-33.5 [facility] Comment on above: Performed By: #### C DP, IPF #### [place] [address] Electrical Unit Rebuilder: Tavon Nicole MD MCHC (RBC) [Mass/Vol] 31.8 g/dL Normal 28.4-34.8 [facility] Comment on above: Performed By: #### C DP, IPF #### [place] [address] Electrical Unit Rebuilder: Tavon Nicole MD MCV (RBC) [Entitic vol] 87.7 fL Normal 82.6-102.9 [facility] Comment on above: Performed By: #### C DP, IPF #### [place] [address] Electrical Unit Rebuilder: Tavon Nicole MD NRBC Automated 0.0 per 100 WBC Normal 0.0 [facility] Comment on above: Performed By: #### C DP, IPF #### [place] [address] Electrical Unit Rebuilder: Tavon Nicole MD Platelet Count See Reflexed IPF Result Normal 138-453 [facility] Comment on above: Performed By: #### C DP, IPF #### [place] [address] Electrical Unit Rebuilder: Tavon Nicole MD RBC (Bld) [#/Vol] 4.05 10*6/uL Normal 3.95-5.11 [facility] Comment on above: Performed By: #### C DP, IPF #### [facility] [address] [place] [address] Electrical Unit Rebuilder: Tavon Nicole MD WBC (Bld) [#/Vol] 4.4 10*3/uL Normal 3.5-11.3 [facility] Comment on above: Performed By: #### C DP, IPF #### [facility] [address] [place] [address] Electrical Unit Rebuilder: Tavon Nicole MD EEG video monitoringon 10-20 Raiza Land MD 10/20/2021 12:11 PM Referring physician: Chris Blanchard [employer] Date:10/20/2021 Start Time:10/19/2021 @1258 End Time: 10/20/2021 @ 1200 Indication Patient with recurrent events Introduction This continuous video-EEG was acquired using a [facility] workstation at 256 samples/s. Electrodes were placed [...] Certified. Neurology Board Certified. Electronically Signed [facility] [employer] Work Phone: EEG video monitoringOrdered By: Raiza Land on 10-20-2021 [facility] [employer] Work Phone: Immature Platelet Fractionon 10-20-2021 Platelet, Fluorescence Platelet clumps present, count appears adequate. [facility] PLT, Immature Fract.on 10-20 Platelet, Fluoresc. Platelet clumps present, count appears adequate. Normal 138-453 [facility] Comment on above: Performed By: #### C DP, IPF #### [facility] [address] [place] [address] Electrical Unit Rebuilder: Tavon Nicole MD PROLACTINon 10-20-2021 Prolactin 41.7 ng/mL Critically high 4.8-23.3 [facility] Comment on above: Performed By: #### C VDTBH #### [facility] [address] [place], [place] [address] Dr. Ibis Jimenez CBCon 10-19-2021 Erythrocyte distribution width (RBC) [Ratio] 12.9 % Normal 11.8-14.4 [facility] Comment on above: Performed By: #### T ROPI LACTIC, CMPX, CBC #### [facility] [address] [place] [address] Electrical Unit Rebuilder: Tavon Nicole MD Hematocrit (Bld) [Volume fraction] 31.5 % Low 36.3-47.1 [facility] Comment on above: Performed By: #### T ROPI, LACTIC, CMPX, CBC #### [facility] [place] [address] Electrical Unit Rebuilder: Tavon Nicole MD Hemoglobin (Bld) [Mass/Vol] 10.8 g/dL Low 11.9-15.1 [facility] Comment on above: Performed By: #### T ROPI, LACTIC, CMPX, CBC #### [facility] [address] [place] [address] Electrical Unit Rebuilder: Tavon Nicole MD MCH (RBC) [Entitic mass] 29.1 pg Normal 25.2-33.5 [facility] Comment on above: Performed By: #### T ROPI, LACTIC, CMPX, CBC #### [address] [address] Electrical Unit Rebuilder: Tavon Nicole MD MCHC (RBC) [Mass/Vol] 34.3 g/dL Normal 28.4-34.8 [facility] Comment on above: Performed By: #### T ROPI, LACTIC, CMPX, CBC #### [address] [address] Electrical Unit Rebuilder: Tavon Nicole MD MCV (RBC) [Entitic vol] 84.9 fL Normal 82.6-102.9 [facility] Comment on above: Performed By: #### T ROPI, LACTIC, CMPX, CBC #### [address] [address] Electrical Unit Rebuilder: Tavon Nicole MD NRBC Automated 0.0 per 100 WBC Normal 0.0 [facility] Comment on above: Performed By: #### T ROPI, LACTIC, CMPX, CBC #### [address] [address] Electrical Unit Rebuilder: Tavon Nicole MD Platelet mean volume (Bld) [Entitic vol] 9.8 fL Normal 8.1-13.5 [facility] Comment on above: Performed By: #### T ROPI, LACTIC, CMPX, CBC #### [address] [address] Electrical Unit Rebuilder: Tavon Nicole MD Platelets (Bld) [#/Vol] 281 10*3/uL Normal 138-453 [facility] Comment on above: Performed By: #### T ROPI, LACTIC, CMPX, CBC #### [address] [address] Electrical Unit Rebuilder: Tavon Nicole MD RBC (Bld) [#/Vol] 3.71 10*6/uL Low 3.95-5.11 [facility] Comment on above: Performed By: #### T ROPI, LACTIC, CMPX, CBC #### [facility] [address] [place], [place] [id number] Electrical Unit Rebuilder: Tavon Nicole MD WBC (Bld) [#/Vol] 5.0 10*3/uL Normal 3.5-11.3 [facility] Comment on above: Performed By: #### T ROPI, LACTIC, CMPX, CBC #### [facility] [address] [place] [address] Electrical Unit Rebuilder: Tavon Nicole MD Hematocrit (Bld) [Volume fraction] 31.5 % Low 36.3 - 47.1 % [facility] Hemoglobin (Bld) [Mass/Vol] 10.8 g/dL Low 11.9 - 15.1 g/dL [facility] Interpretation and review of laboratory results Abnormal [facility] MCH (RBC) [Entitic mass] 29.1 pg 25.2 - 33.5 pg [facility] MCHC (RBC) [Mass/Vol] 34.3 g/dL 28.4 - 34.8 g/dL [facility] MCV (RBC) [Entitic vol] 84.9 fL 82.6 - 102.9 fL [facility] NRBC Automated 0.0 0.0 per 100 WBC [facility] Platelet distribution width (Bld) [Ratio] 12.9 % 11.8 - 14.4 % [facility] Platelet mean volume (Bld) [Entitic vol] 9.8 fL 8.1 - 13.5 fL [facility] Platelets (Bld) [#/Vol] 281 10*3/uL [facility] RBC (Bld) [#/Vol] 3.71 10*6/uL Low 3.95 - 5.1 1 m/uL [facility] WBC (Bld) [#/Vol] 5.0 10*3/uL [facility] AUTO DIFFon 10-19-2021 EO # 0.2 103/ul Normal 0.0-0.7 [facility] Comment on above: Performed By: #### A MM #### [facility] [address] [place] [address] Dr. Ibis Jimenez Eosinophils/100 WBC (Bld) 3.9 % Normal 0.9-7.[address] [facility] Comment on above: Performed By: #### A MM #### [facility] [address] [place] [address] Dr. Ibis Jimenez Erythrocyte distribution width (RBC) [Ratio] 13.1 % Normal 11.0-15.0 [facility] Comment on above: Performed By: #### A MM #### [facility] [address] [place] [address] Dr. Ibis Jimenez Hematocrit (Bld) [Volume fraction] 33.4 % Critically low 36.0-48.0 [facility] Comment on above: Performed By: #### A MM #### [facility] [address] [place] [address] Dr. Ibis Jimenez Hemoglobin (Bld) [Mass/Vol] 11.1 g/dL Critically low 12.0-16.0 [facility] Comment on above: Performed By: #### A MM #### [facility] [address] [place] [address] Dr. Ibis Jimenez LYMPH # 1.2 103/ul Normal 1.2-3.[address] [facility] Comment on above: Performed By: #### A MM #### [facility] [address] [place] [address] Dr. Ibis Jimenez Lymphocytes/100 WBC (Bld) 25.9 % Normal 20.5-60.[address] [facility] Comment on above: Performed By: #### A MM #### [facility] [address] [place] [address] Dr. Ibis Jimenez MCHC (RBC) [Mass/Vol] 33.2 g/dL Normal 29.9-35.[address] [facility] Comment on above: Performed By: #### A MM #### [facility] [facility] [address] [place] [address] Dr. Ibis Jimenez MCV (RBC) [Entitic vol] 85.9 fL Normal 81.0-99.0 [facility] Comment on above: Performed By: #### A MM #### [facility] [address] [place] [address] Dr. Ibis Jimenez Monocytes/100 WBC (Bld) 7.7 % Normal 1.7-12.0 [facility] Comment on above: Performed By: #### A MM #### [facility] [address] [place] [address] Dr. Ibis Jimenez NEUT # 2.9 103/ul Normal 1.4-6.5 [facility] Comment on above: Performed By: #### A MM #### [facility] [address] [place] [address] Dr. Ibis Jimenez Neutrophils/100 WBC (Bld) 61.5 % Normal 43.0-75.0 [facility] Comment on above: Performed By: #### A MM #### [facility] [address] [place] [address] Dr. Ibis Jimenez PLT 264 103/ul Normal 150-450 [facility] Comment on above: Performed By: #### A MM #### [facility] [address] [place] [address] Dr. Ibis Jimenez RBC 3.89 106/ul Critically low 4.20-5.40 [facility] Comment on above: Performed By: #### A MM #### [facility] [address] [place] [address] Dr. Ibis Jimenez WBC 4.7 103/ul Normal 4.0-11.0 [facility] Comment on above: Performed By: #### A MM #### [facility] [address] [place] [address] Dr. Ibis Jimenez BASO # 0.0 103/ul Normal 0.0-0.1 [facility] Comment on above: Performed By: #### A MM #### [facility] [address] [place] [address] Dr. Ibis Jimenez Performed By: #### C VDTBH #### [facility] [address] [place] [address] Dr. Ibis Jimenez Basophils/100 WBC (Bld) 0.6 % Normal 0.2-2.0 [facility] Comment on above: Performed By: #### A MM #### [facility] [address] [place] [address] Dr. Ibis Jimenez Performed By: #### C VDTBH #### [facility] [address] [place] [address] Dr. Ibis Jimenez EO # 0.3 103/ul Normal 0.0-0.7 [facility] Comment on above: Performed By: #### C VDTBH #### [facility] [address] [place] [address] Dr. Ibis Jimenez Eosinophils/100 WBC (Bld) 5.0 % Normal 0.9-7.0 [facility] Comment on above: Performed By: #### C VDTBH #### [facility] [address] [place] [address] Dr. Ibis Jimenez Erythrocyte distribution width (RBC) [Ratio] 12.8 % Normal 11.0-15.0 [facility] Comment on above: Performed By: #### C VDTBH #### [facility] [address] [place] [address] Dr. Ibis Jimenez Hematocrit (Bld) [Volume fraction] 38.0 % Normal 36.0-48.0 [facility] Comment on above: Performed By: #### C VDTBH #### [facility] [address] [place] [address] Dr. Ibis Jimenez Hemoglobin (Bld) [Mass/Vol] 12.7 g/dL Normal 12.0-16.0 [facility] Comment on above: Performed By: #### C VDTBH #### [facility] [address] [place] [address] Dr. Ibis Jimenez IG # 0.02 10e3/ul Normal 0.00-0.03 [facility] Comment on above: Performed By: #### A MM #### [facility] [address] [place] [address] Dr. Ibis Jimenez Performed By: #### C VDTBH #### [facility] [address] [place] [address] Dr. Ibis Jimenez IG % 0.4 % Normal 0.0-0.5 [facility] Comment on above: Performed By: #### A MM #### [facility] [address] [place] [address] Dr. Ibis Jimenez Performed By: #### C VDTBH #### [facility] [address] [place] [address] Dr. Ibis Jimenez LYMPH # 1.7 103/ul Normal 1.2-3.8 [facility] Comment on above: Performed By: #### C VDTBH #### [facility] [address] [place] [address] Dr. Ibsi Jimenez Lymphocytes/100 WBC (Bld) 30.7 % Normal 20.5-60.0 [facility] Comment on above: Performed By: #### C VDTBH #### [facility] [address] [place] [address] Dr. Ibis Jimenez MANUAL DIFF REQ NO Normal [facility] Comment on above: Performed By: #### A MM #### [facility] [address] [place] [address] Dr. Ibis Jimenez Performed By: #### C VDTBH #### [facility] [address] [place] [address] Dr. Ibis Jimenez MCH (RBC) [Entitic mass] 28.5 pg Normal 26.7-34.0 [facility] Comment on above: Performed By: #### A MM #### [facility] [address] [place] [address] Dr. Ibis Jimenez Performed By: #### C VDTBH #### [facility] [address] [place] [address] Dr. Ibis Jimenez MCHC (RBC) [Mass/Vol] 33.4 g/dL Normal 29.9-35.2 [facility] Comment on above: Performed By: #### C VDTBH #### [facility] [address] [place] [address] Dr. Ibis Jimenez MCV (RBC) [Entitic vol] 85.2 fL Normal 81.0-99.0 [facility] Comment on above: Performed By: #### C VDTBH #### [facility] [address] [place] [address] Dr. Ibis Jimenez MONO # 0.4 103/ul Normal 0.3-0.8 [facility] Comment on above: Performed By: #### A MM #### [facility] [address] [place] [address] Dr. Ibis Jimenez Performed By: #### C VDTBH #### [facility] [address] [place] [address] Dr. Ibis Jimenez Monocytes/100 WBC (Bld) 8.1 % Normal 1.7-12.0 [facility] Comment on above: Performed By: #### C VDTBH #### [facility] [address] [place] [address] Dr. Ibis Jimenez NEUT # 3.0 103/ul Normal 1.4-6.5 [facility] Comment on above: Performed By: #### C VDTBH #### [facility] [address] [place] [address] Dr. Ibis Jimenez Neutrophils/100 WBC (Bld) 55.2 % Normal 43.0-75.0 [facility] Comment on above: Performed By: #### C VDTBH #### [facility] [address] [place] [address] Dr. Ibis Jimenez Platelet mean volume (Bld) [Entitic vol] 9.5 fL Normal 9.5-13.5 [facility] Comment on above: Performed By: #### A MM #### [facility] [address] [place] [address] Dr. Ibis Jimenez Performed By: #### C VDTBH #### [facility] [address] [place] [address] Dr. Ibis Jimenez PLT 343 103/ul Normal 150-450 [facility] Comment on above: Performed By: #### C VDTBH #### [facility] [address] [place], [place] [address] Dr. Ibis Jimenez RBC 4.46 106/ul Normal 4.20-5.40 [facility] Comment on above: Performed By: #### C VDTBH #### [facility] [address] [place], [place] [address] Dr. Ibis Jimenez WBC 5.4 103/ul Normal 4.0-11.0 [facility] Comment on above: Performed By: #### C VDTBH #### [facility] [id number] Ibis Jimenez [address] HEAD WO CONon [...] by: LOPEZ REYNOLDS Date: 2021-10-19 07:31 Normal [facility] Comp Metabolic Pr/rfx MGon 0 10-19-2021 (cont.) Normal [facility] Comment on above: Result Comment: Aver age GFR for 20-29 years old: 116 mL/min/1.73sq m Chronic Kidney Disease: <60 mL/min/1.73sq m Kidney failure: <15 mL/min/1.73sq m eGFR calculated using average adult body mass. Additional eGFR calculator available at: http://www.[employer].AppMesh/multiple_crcl_2011.htm Performed By: #### T ROPI, LACTIC, CMPX, CBC #### [facility] [address] [place] [address] Electrical Unit Re[employer]: Tavon Nicole MD Albumin [Mass/Vol] 3.5 g/dL Normal 3.5-5.2 [facility] Comment on above: Performed By: #### T ROPI, LACTIC, CMPX, CBC #### [facility] [address] [place] [address] Electrical Unit Rebuilder: Tavon Nicole MD Albumin/Glob Ratio 1.4 Normal 1.0-2.5 [facility] Comment on above: Performed By: #### T ROPI, LACTIC, CMPX, CBC #### [facility] [address] [place] [address] Electrical Unit Re[employer]: Tavon Nicole MD Alkaline Phos 69 U/L Normal 35-104 [facility] Comment on above: Performed By: #### T ROPI, LACTIC, CMPX, CBC #### [facility] [address] [place] [address] Electrical [employer] Rebuilder: Tavon Nicole MD ALT [Catalytic activity/Vol] 15 U/L Normal 5-33 [facility] Comment on above: Performed By: #### T ROPI, LACTIC, CMPX, CBC #### [facility] [address] [place] [address] [employer]: Tavon Nicole MD Anion gap [Moles/Vol] 13 mmol/L Normal 9-17 [facility] Comment on above: Performed By: #### T ROPI, LACTIC, CMPX, CBC #### [facility] [address] [place] [address] Electrical Unit Rebuilder: Tavon Nicole MD AST [Catalytic activity/Vol] 12 U/L Normal <32 [facility] Comment on above: Performed By: #### T ROPI, LACTIC, CMPX, CBC #### [facility] [address] [place] [address] Electrical Unit Rebuilder: Tavon Nicole MD Bilirubin [Mass/Vol] 0.24 mg/dL Low 0.3-1.2 [facility] Comment on above: Performed By: #### T ROPI, LACTIC, CMPX, CBC #### [facility] [address] [place] [address] Electrical Unit Rebuilder: Tavon Nicole MD Calcium [Mass/Vol] 8.1 mg/dL Low 8.6-10.4 [facility] Comment on above: Performed By: #### T ROPI, LACTIC, CMPX, CBC #### [facility] [address] [place] [address] Electrical Unit Rebuilder: Tavon Nicole MD Chloride [Moles/Vol] 107 mmol/L Normal 98-107 [facility] Comment on above: Performed By: #### T ROPI, LACTIC, CMPX, CBC #### [facility] [address] [place] [address] Electrical Unit Rebuilder: Tavon Nicole MD CO2 [Moles/Vol] 19 mmol/L Low 20-31 [facility] Comment on above: Performed By: #### T ROPI, LACTIC, CMPX, CBC #### [facility] [address] [place] [address] Electrical Unit Rebuilder: Tavno Nicole MD Creatinine [Mass/Vol] 0.53 mg/dL Normal 0.50-0.90 [facility] Comment on above: Performed By: #### T ROPI, LACTIC, CMPX, CBC #### [facility] [address] [place] [address] Electrical Unit Rebuilder: Tavon Nicole MD GFR, Amer >60 Normal >60 [facility] Comment on above: Performed By: #### T ROPI, LACTIC, CMPX, CBC #### [facility] [address] [place] [address] Electrical Unit Rebuilder: Tavon Nicole MD GFR,non Amer >60 Normal >60 [facility] Comment on above: Performed By: #### T ROPI, LACTIC, CMPX, CBC #### [address] [address] Electrical Unit Rebuilder: Tavon Nicole MD Glucose [Mass/Vol] 81 mg/dL Normal 70-99 [facility] Comment on above: Performed By: #### T ROPI, LACTIC, CMPX, CBC #### [address] [address] Electrical Unit Rebuilder: Tavon Nicole MD Potassium [Moles/Vol] 3.9 mmol/L Normal 3.7-5.3 [facility] Comment on above: Performed By: #### T ROPI, LACTIC, CMPX, CBC #### [address] [address] Electrical Unit Rebuilder: Tvaon Nicole MD Protein [Mass/Vol] 6.0 g/dL Low 6.4-8.3 [facility] Comment on above: Performed By: #### T ROPI, LACTIC, CMPX, CBC #### [facility] [address] [place] [address] Electrical Unit Rebuilder: Tavon Nicole MD Sodium [Moles/Vol] 139 mmol/L Normal 135-144 [facility] Comment on above: Performed By: #### T ROPI, LACTIC, CMPX, CBC #### [facility] [address] [place] [address] Electrical Unit Rebuilder: Tavon Nicole MD Urea nitrogen [Mass/Vol] 10 mg/dL Normal 6-20 [facility] Comment on above: Performed By: #### T ROPI, LACTIC, CMPX, CBC #### [facility] [address] [place] [address] Electrical Unit Rebuilder: Tavon Nicole MD Comprehensive Metabolic Pane l w/ Reflex to MGon 10-19-2021 Albumin [Mass/Vol] 3.5 g/dL 3.5 - 5.2 g/dL [facility] Albumin/Globulin [Mass ratio] 1.4 {ratio} 1 - 2.5 [facility] ALP (Bld) [Catalytic activity/Vol] 69 U/L 35 - 104 U/L [facility] [employer] ALT [Catalytic activity/Vol] 15 U/L 5 - 33 U/L [facility] Anion gap [Moles/Vol] 13 mmol/L 9 - 17 mmol/L [facility] [employer] AST [Catalytic activity/Vol] 12 U/L NINF - 32 U/L [facility] Bilirubin [Mass/Vol] 0.24 mg/dL Low 0.3 - 1 .2 mg/dL [facility] [employer] Calcium [Mass/Vol] 8.1 mg/dL Low 8.6 - 10. 4 mg/dL [facility] Chloride [Moles/Vol] 107 mmol/L 98 - 10 7 mmol/L [facility] CO2 [Moles/Vol] 19 mmol/L Low 20 - 31 mmol/L [facility] Creatinine [Mass/Vol] 0.53 mg/dL 0.5 - 0.9 mg/dL [facility] Free PSA/Total PSA [Mass fraction] 6.0 g/dL Low 6.4 - 8.3 g/dL [facility] GFR >60 60 - PI NF mL/min [facility] GFR Non- >60 60 - PINF mL/min [facility] GFR/1.73 sq M.predicted MDRD (S/P/Bld) [Vol rate/Area] [facility] Comment on above: Average GFR for 20-2 9 years old: 116 mL/min/1.73sq m Chronic Kidney Disease: <60 mL/min/1.73sq m Kidney failure: <15 mL/min/1.73sq m eGFR calculated using average adult body mass. Additional eGFR calculator available at: http://www.[employer].com/multiple_crcl_2012.htm Glucose [Mass/Vol] 81 mg/dL 70 - 99 mg/dL [facility] Interpretation and review of laboratory results Abnormal [facility] Potassium [Moles/Vol] 3.9 mmol/L 3.7 - 5.3 mmol/L [facility] Sodium [Moles/Vol] 139 mmol/L 135 - 144 mmol/L [facility] Urea nitrogen (BldV) [Mass/Vol] 10 mg/dL 6 - 20 mg/dL [facility] Covid-19 PCR (CVDTB)on 09-22 SARS-CoV-2 (COVID-19) RNA SAURABH+probe Ql (Unsp spec) Not detected Normal NOT DETECTED [facility] Comment on above: Result Comment: When [...] for this test is supported by the [place] of [employer] and Human Service's declaration that [...] used). Performed By: #### C VDTB #### [facility] [address] [place] [address] Dr. Ibis Jimenez DRUG SCREEN RAPID (URINE)on 10-19-2021 AMP Negative Normal NEGATIVE [facility] Comment on above: Performed By: #### B MP #### [facility] [address] [place], [place] [address] Dr. Ibis Jimenez BAR Positive Abnormal NEGATIVE [facility] Comment on above: Performed By: #### B MP #### [facility] [address] [place] [address] Dr. Ibis Jimenez BUP Negative Normal NEGATIVE [facility] Comment on above: Performed By: #### B MP #### [facility] [address] [place] [address] Dr. Ibis Jimenez BZO Positive Abnormal NEGATIVE [facility] Comment on above: Performed By: #### B MP #### [facility] [address] [place] [address] Dr. Ibis Jimenez SEMAJ Negative Normal NEGATIVE [facility] Comment on above: Performed By: #### B MP #### [facility] [address] [place] [address] Dr. Ibis Jimenez CUT-OFFS SEE BELOW Normal [facility] Comment on above: Result Comment: AMP (Amphetamine): 500ng/mL, BAR (Barbituates): 200 ng/mL, BZO (Benzodiazepines): 150 ng/mL, BUP (Buprenorphine): 10 ng/mL, SEMAJ (Cocaine): 150 ng/mL, mAMP (Methamphetamine): 500 ng/mL, MTD (Methadone): 200 ng/mL, OPI (Opiates): 100 ng/mL, OXY (Oxycodone): 100 ng/mL, PCP (Phencyclidine): 25 ng/mL, PPX (Propoxyphene): 300 ng/mL, THC (Cannabinoids): 50 ng/mL, TCA (Trycyclic Antidepressants): 300 ng/mL Performed By: #### B MP #### [facility] [address] [place] [address] Dr. Ibis Jimenez DRUG CUT HEADER DRUG CLASS TEST SYSTEM CUT-OFF CONCENTRATIONS ARE FOLLOWS: Normal [facility] Comment on above: Performed By: #### B MP #### [facility] [address] [place] [address] Dr. Ibis Jimenez mAMP Negative Normal NEGATIVE [facility] Comment on above: Performed By: #### B MP #### [facility] [address] [place] [address] Dr. Ibis Jimenez MTD Negative Normal NEGATIVE [facility] Comment on above: Performed By: #### B MP #### [facility] [address] [place], [place] [id number] Dr. Ibis Jimenez OPI Positive Abnormal NEGATIVE [facility] Comment on above: Performed By: #### B MP #### [facility] [address] [place] [address] Dr. Ibis Jimenez OXY Positive Abnormal NEGATIVE [facility] Comment on above: Performed By: #### B MP #### [facility] [address] [place] [address] Dr. Ibis Jimenez PCP Negative Normal NEGATIVE [facility] Comment on above: Performed By: #### B MP #### [facility] [address] [place] [address] Dr. Ibis Jimenez PPX Negative Normal NEGATIVE [facility] Comment on above: Performed By: #### B MP #### [facility] [address] [place] [address] Dr. Ibis Jimenez TCA Negative Normal NEGATIVE [facility] Comment on above: Performed By: #### B MP #### [facility] [address] [place] [address] Dr. Ibis Jimenez THC Negative Normal NEGATIVE [facility] Comment on above: Performed By: #### B MP #### [facility] [address] [place] [address] Dr. Ibis Jimenez ER URINE PROFILEon 2 Bilirubin Ql (U) Negative Normal NEGATIVE [facility] Comment on above: Performed By: #### B MP #### [facility] [address] [place] [address] Dr. Ibis Jimenez Clarity (U) CLEAR Normal CLEAR [facility] Comment on above: Performed By: #### B MP #### [facility] [address] [place] [address] Dr. Ibis Jimenez Color (U) YELLOW Normal YELLOW [facility] Comment on above: Performed By: #### B MP #### [facility] [address] [place] [address] Dr. Ibis RODRIGUEZ A micrscopic examination will be performed if indicated. Normal [facility] Comment on above: Performed By: #### B MP #### [facility] [address] [place] [address] Dr. Ibis Jimenez Glucose Ql (U) Negative Normal NEGATIVE [facility] Comment on above: Performed By: #### B MP #### [facility] [address] [place] [address] Dr. Ibis Jimenez Hemoglobin Ql (U) TRACE-INTACT Abnormal NEGATIVE [facility] Comment on above: Performed By: #### B MP #### [facility] [address] [place] [address] Dr. Ibis Jimenez Ketones Ql (U) Negative Normal NEGATIVE [facility] Comment on above: Performed By: #### B MP #### [facility] [address] [place] [address] Dr. Ibis Jimenez LEUKOCYTES Negative Normal NEGATIVE [facility] Comment on above: Performed By: #### B MP #### [facility] [address] [place] [address] Dr. Ibis Jimenez Nitrite Ql (U) Negative Normal NEGATIVE [facility] Comment on above: Performed By: #### B MP #### [facility] [address] [place] [address] Dr. Ibis Jimenez pH (U) 5.5 [pH] Normal 5-9 [facility] Comment on above: Performed By: #### B MP #### [facility] [address] [place] [address] Dr. Ibis Jimenez SPEC GRAVITY >=1.030 Abnormal 1.005-<=1.[address] [place] [address] Comment on above: Performed By: #### B MP #### [facility] [address] [place] [address] Dr. Ibis Jimenez UA PROTEIN Negative Normal NEGATIVE/ TRACE [facility] Comment on above: Performed By: #### B MP #### [facility] [address] [place] [address] Dr. Ibis Jimenez UR MICRO IND INDICATED Normal [facility] Comment on above: Performed By: #### B MP #### [facility] [address] [place] [address] Dr. Ibis Jimenez Urobilinogen Qn (U) 0.2 {Dinorah'U}/dL Normal 0.2 - 1. 0 [facility] Comment on above: Performed By: #### B MP #### [facility] [address] [place] [address] [address] [address] Ibis Jimenez LACTATE/LACTIC ACIDon 2021 Lactate [Moles/Vol] 1.2 mmol/L Normal 0.4-1.9 [facility] Comment on above: Performed By: #### A MM #### [facility] [address] [place], [place] [address] Dr. Ibis Jimenez Lactic Acidon 10-19-2021 Lactic Acid,Whole Bl 0.9 mmol/L Normal 0.7-2.1 [facility] Comment on above: Performed By: #### T ROPI, LACTIC, CMPX, CBC #### [facility] [address] [place] [address] Electrical Unit Rebuilder: Tavon Nicole MD Lactic Acid, Whole Blood 0.9 mmol/L 0.7 - 2.1 mmol/L [facility] MONOon 10-19-2021 Monocytes (Bld) [#/Vol] Negative Normal NEGATIVE [facility] Comment on above: Performed By: #### M DAVID #### [facility] [address] [place] [address] [address] [address] Ibis Jimenez MRI BRAIN W WO [...] Carlos Marks DO 10/19/21 Final result Normal [facility] Unremarkable MR brain. [facility] EXAMINATION: MRI OF THE [...] The soft tissues demonstrate no acute abnormality. [facility] Carlos Marks DO - [...] no acute abnormality. IMPRESSION: Unremarkable MR brain. [employer] Phone: Radiology Study observation (narrative) [employer] Phone: MRI BRAIN W WO CONTRASTOrder ed By: Carlos Marks on 10-19-2021 [facility] [employer] Phone: PH VENOUS BLOODon 10-19-2021 PCO2 VENOUS 36.6 mmHg Critically low 40.0-52.0 [facility] Comment on above: Performed By: #### B MP #### [facility] [address] [place] [address] Dr. Ibis Jimenez pH VENOUS 7.387 Normal 7.330-7.430 [facility] Comment on above: Performed By: #### B MP #### [facility] [address] [place] [address] Dr. bIis Jimenez PROF CHEM 8 (BAS METB)on Anion gap [Moles/Vol] 11.9 mmol/L Normal [facility] Comment on above: Performed By: #### M DAVID #### [facility] [address] [place] [address] Dr. Ibis Jimenez Calcium [Mass/Vol] 9.1 mg/dL Normal 8.5-10.1 [facility] Comment on above: Performed By: #### M DAVID #### [facility] [address] [address] [address] Ibis Jimenez Chloride [Moles/Vol] 104 mmol/L Normal 98-[address] [facility] Comment on above: Performed By: #### M DAVID #### [facility] [address] [address] [address] Ibis Jimenez CO2 [Moles/Vol] 26.7 mmol/L Normal 21.0-32.0 [facility] Comment on above: Performed By: #### M DAVID #### [facility] [address] [place] [address] Dr. Ibis Jimenez Creatinine [Mass/Vol] 0.78 mg/dL Normal 0.55-1.[address] [facility] Comment on above: Performed By: #### M DAVID #### [facility] [address] [place] [address] Dr. Ibis Jimenez EGFR-AF SWISS >60 Normal >=60 [facility] Comment on above: Performed By: #### M DAVID #### [facility] [address] [place] [address] Dr. Ibis Jimenez EGFR-NON AF SWISS >60 Normal >=[address] [facility] Comment on above: Performed By: #### M DAVID #### [facility] [address] [place] [address] Dr. Ibis Jimenez Glucose [Mass/Vol] 96 mg/dL Normal 74-106 [facility] Comment on above: Performed By: #### M DAVID #### [facility] [address] [place] [address] Dr. Ibis Jimenez Potassium [Moles/Vol] 3.6 mmol/L Normal 3.5-5.[address] [facility] Comment on above: Performed By: #### M DAVID #### [facility] [address] [place] [address] Dr. Ibis Jimenez Sodium [Moles/Vol] 139 mmol/L Normal 136-145 [facility] Comment on above: Performed By: #### M DAVID #### [facility] [address] [place] [address] Dr. Ibis Jimenez Urea nitrogen [Mass/Vol] 14.0 mg/dL Normal 7.0-18.0 [facility] Comment on above: Performed By: #### M DAVID #### [facility] [address] [place] [address] Dr. Ibis Jimenez Urea nitrogen/Creatinine [Mass ratio] 17.9 mg/mg Normal [facility] Comment on above: Performed By: #### M DAVID #### [facility] [id number] Ibis Jimenez TSHon 10-19-2021 TSH 1.389 uIU/mL Normal 0.358-3.740 [facility] Comment on above: Performed By: #### A CET, SALYC #### [facility] [address] [place] [address] Dr. Ibis Jimenez Troponinon 10-19-2021 Troponin, High Sens <6 Normal 0-14 [facility] Comment on above: Result Comment: High Sensitivity Troponin values cannot be compared with other Troponin methodologies. Patients with high levels of Biotin oral intake (i.e >5mg/day) may have falsely decreased Troponin levels. Samples collected within 8 hours of biotin intake may require additional information for diagnosis. Performed By: #### T ROPI, LACTIC, CMPX, CBC #### [employer] [address] [place] [address] Electrical Unit [employer]: Tavon Nicole MD Troponin, High Sensitivity ng/L 0 - 14 ng/L [facility] Comment on above: High Sensitivity Troponin values cannot be compared with other Troponin methodologies. Patients with high levels of Biotin oral intake (i.e >5mg/day) may have falsely decreased Troponin levels. Samples collected within 8 hours of biotin intake may require additional information for diagnosis. [facility] [employer] URINE MICROSCOPIC ONLYon BACTERIA TRACE Abnormal NONE SEEN [facility] Comment on above: Performed By: #### B MP #### [facility] [address] [place] [address] [id number] [address] Ibis Jimenez Bacteria identified Cx Nom (U) NOT INDICATED Normal [facility] Comment on above: Performed By: #### B MP #### [facility] [address] [place] [address] Dr. Ibis Jimenez CAST NONE SEEN Normal NONE SEEN [facility] Comment on above: Performed By: #### B MP #### [facility] [address] [place] [address] Dr. Ibis Jimenez Crystals LM Nom (Urine sed) NONE SEEN Normal NONE SEEN [facility] Comment on above: Performed By: #### B MP #### [facility] [address] [place] [address] Dr. Ibis Jimenez Epithelial cells LM Ql (Urine sed) RARE Normal NONE SEEN /RARE [facility] Comment on above: Performed By: #### B MP #### [facility] [address] [place] [address] Dr. Ibis Jimenez MUCOUS LARGE Abnormal NONE SEEN [facility] Comment on above: Performed By: #### B MP #### [facility] [address] [place] [address] Dr. Ibis Jimenez RBC 2-5 Abnormal 0-[address] [facility] Comment on above: Performed By: #### B MP #### [facility] [address] [place] [address] Dr. Ibis Jimenez WBC 0-2 Abnormal NONE SEEN [facility] Comment on above: Performed By: #### B MP #### [facility] [address] [place] [address] ABD/PELVIS WO CONon [...] JASS LAURENT Date: 2021-10-06 20:[address] [facility] ER URINE PROFILEon 2 Bilirubin Ql (U) Negative Normal NEGATIVE The [facility] Comment on above: Performed By: #### M DAVID #### [facility] [address] [place] [address] Dr. Ibis Jimenez Clarity (U) CLEAR Normal CLEAR [facility] Comment on above: Performed By: #### M DAVID #### [facility] [address] [place] [address] Dr. Ibis Jimenez Color (U) LT. YELLOW Normal YELLOW [facility] Comment on above: Performed By: #### M DAVID #### [facility] [address] [address] [address] Ibis RODRIGUEZ A micrscopic examination will be performed if indicated. Normal [facility] Comment on above: Performed By: #### M DAVID #### [facility] [address] [address] [address] Ibis Jimenez Glucose Ql (U) Negative Normal NEGATIVE [facility] Comment on above: Performed By: #### M DAVID #### [facility] [address] [address] [address] Ibis Jimenez Hemoglobin Ql (U) Negative Normal NEGATIVE [facility] Comment on above: Performed By: #### M DAVID #### [facility] [address] [address] [address] Ibis Jimenez Ketones Ql (U) Negative Normal NEGATIVE [facility] Comment on above: Performed By: #### M DAVID #### [facility] [address] [address] [address] Ibis Jimenez LEUKOCYTES Negative Normal NEGATIVE [facility] Comment on above: Performed By: #### M DAVID #### [facility] [address] [address] [address] Ibis Jimenez Nitrite Ql (U) Negative Normal NEGATIVE [facility] Comment on above: Performed By: #### M DAVID #### [facility] [address] [place] [address] Dr. Ibis Jimenez pH (U) 8.0 [pH] Normal 5-9 [facility] Comment on above: Performed By: #### M DAVID #### [facility] [address] [address] [address] Ibis Jimenez SPEC GRAVITY 1.010 Normal 1.005-<=1.02 5 [facility] Comment on above: Performed By: #### M DAVID #### [facility] [address] [place] [address] Dr. Ibis Jimenez UA PROTEIN Negative Normal NEGATIVE/ TRACE [facility] Comment on above: Performed By: #### M DAVID #### [facility] [address] [address] [address] Ibis Jimenez UR MICRO IND NOT INDICATED Normal The [facility] Comment on above: Performed By: #### M DAVID #### [facility] [address] [address] [address] Ibis Jimenez Urobilinogen Qn (U) 0.2 {Dinorah'U}/dL Normal 0.2 - 1. 0 [facility] Comment on above: Performed By: #### M DAVID #### [facility] [address] [place] [address] Dr. Ibis Jimenez ER URINE PROFILEon 2 Bilirubin Ql (U) Negative Normal NEGATIVE [facility] Comment on above: Performed By: #### C VDTBH #### [facility] [address] [place] [address] Dr. Ibis Jimenez Clarity (U) CLEAR Normal CLEAR [facility] Comment on above: Performed By: #### C VDTBH #### [facility] [address] [place] [address] Dr. Ibis Jimenez Color (U) YELLOW Normal YELLOW [facility] Comment on above: Performed By: #### C VDTBH #### [facility] [address] [place] [address] Dr. Ibis Jimenez ERUAHKishan A micrscopic examination will be performed if indicated. Normal [facility] Comment on above: Performed By: #### C VDTBH #### [facility] [address] [place] [address] Dr. Ibis Jimenez Glucose Ql (U) Negative Normal NEGATIVE [facility] Comment on above: Performed By: #### C VDTBH #### [facility] [address] [place] [address] Dr. Ibis Jimenez Hemoglobin Ql (U) Negative Normal NEGATIVE [facility] Comment on above: Performed By: #### C VDTBH #### [facility] [address] [place] [address] Dr. Ibis Jimenez Ketones Ql (U) Negative Normal NEGATIVE [facility] Comment on above: Performed By: #### C VDTBH #### [facility] [address] [place] [address] Dr. Ibis Jimenez LEUKOCYTES Negative Normal NEGATIVE [facility] Comment on above: Performed By: #### C VDTBH #### [facility] [address] [place] [address] Dr. Ibis Jimenez Nitrite Ql (U) Negative Normal NEGATIVE [facility] Comment on above: Performed By: #### C VDTBH #### [facility] [address] [place] [address] Dr. Ibis Jimenez pH (U) 6.0 [pH] Normal 5-9 [facility] Comment on above: Performed By: #### C VDTBH #### [facility] [address] [place] [address] Dr. Ibis Jimenez SPEC GRAVITY 1.025 Normal 1.005-<=1.02 5 [facility] Comment on above: Performed By: #### C VDTBH #### [facility] [address] [place] [address] Dr. Ibis Jimenez UA PROTEIN Negative Normal NEGATIVE/ TRACE [facility] Comment on above: Performed By: #### C VDTBH #### [facility] [address] [place] [address] Dr. Ibis Jimenez UR MICRO IND NOT INDICATED Normal [facility] Comment on above: Performed By: #### C VDTBH #### [facility] [address] [place] [address] Dr. Ibis Jimenez Urobilinogen Qn (U) 0.2 {Dinorah'U}/dL Normal 0.2 - 1. 0 [facility] Comment on above: Performed By: #### C VDTBH #### [facility] [address] [place] [address] Dr. Ibis Jimenez CBC AUTO DIFFon 10-03-2021 BASO # 0.0 103/ul Normal 0.0-0.1 [facility] Comment on above: Performed By: #### B MP #### [facility] [address] [place] [address] Dr. Ibis Jimenez Basophils/100 WBC (Bld) 0.3 % Normal 0.2-2.0 [facility] Comment on above: Performed By: #### B MP #### [facility] [address] [place] [address] Dr. Ibis Jimenez EO # 0.3 103/ul Normal 0.0-0.7 [facility] Comment on above: Performed By: #### B MP #### [facility] [address] [place] [address] Dr. Ibis Jimenez Eosinophils/100 WBC (Bld) 4.1 % Normal 0.9-7.0 [facility] Comment on above: Performed By: #### B MP #### [facility] [address] [address] [address] Ibis Jimenez Erythrocyte distribution width (RBC) [Ratio] 13.2 % Normal 11.0-15.0 [facility] Comment on above: Performed By: #### B MP #### [facility] [address] [place] [address] Dr. Ibis Jimenez Hematocrit (Bld) [Volume fraction] 35.7 % Critically low 36.0-48.0 [facility] Comment on above: Performed By: #### B MP #### [facility] [address] [place] [address] Dr. Ibis Jimenez Hemoglobin (Bld) [Mass/Vol] 11.6 g/dL Critically low 12.0-16.0 [facility] Comment on above: Performed By: #### B MP #### [facility] [address] [place] [address] Dr. Ibis Jimenez IG # 0.02 10e3/ul Normal 0.00-0.03 [facility] Comment on above: Performed By: #### B MP #### [facility] [address] [place] [address] Dr. Ibis Jimenez IG % 0.3 % Normal 0.0-0.5 [facility] Comment on above: Performed By: #### B MP #### [facility] [address] [place] [address] Dr. Ibis Jimenez LYMPH # 1.5 103/ul Normal 1.2-3.[address] [facility] Comment on above: Performed By: #### B MP #### [facility] [address] [place] [address] Dr. Ibis Jimenez Lymphocytes/100 WBC (Bld) 24.3 % Normal 20.5-60.0 [facility] Comment on above: Performed By: #### B MP #### [facility] [address] [place] [address] Dr. Ibis Jimenez MANUAL DIFF REQ NO Normal [facility] Comment on above: Performed By: #### B MP #### [facility] [address] [place] [address] Dr. Ibis Jimenez MCH (RBC) [Entitic mass] 28.9 pg Normal 26.7-34.0 [facility] Comment on above: Performed By: #### B MP #### [facility] [address] [place] [address] Dr. Ibis Jimenez MCHC (RBC) [Mass/Vol] 32.5 g/dL Normal 29.9-35.2 [facility] Comment on above: Performed By: #### B MP #### [facility] [address] [place] [address] Dr. Ibis Jimenez MCV (RBC) [Entitic vol] 89.0 fL Normal 81.0-99.0 [facility] Comment on above: Performed By: #### B MP #### [facility] [address] [place] [address] Dr. Ibis Jimenez MONO # 0.5 103/ul Normal 0.3-0.8 [facility] Comment on above: Performed By: #### B MP #### [facility] [address] [place] [address] Dr. Ibis Jimenez Monocytes/100 WBC (Bld) 7.3 % Normal 1.7-12.0 [facility] Comment on above: Performed By: #### B MP #### [facility] [address] [place] [address] Dr. Ibis Jimenez NEUT # 4.0 103/ul Normal 1.4-6.5 [facility] Comment on above: Performed By: #### B MP #### [facility] [address] [place] [address] Dr. Ibis Jimenez Neutrophils/100 WBC (Bld) 63.7 % Normal 43.0-75.0 [facility] Comment on above: Performed By: #### B MP #### [facility] [address] [place] [address] Dr. Ibis Jimenez Platelet mean volume (Bld) [Entitic vol] 9.7 fL Normal 9.5-13.5 [facility] Comment on above: Performed By: #### B MP #### [facility] [address] [address] [address] Ibis Jimenez PLT 237 103/ul Normal 150-450 [facility] Comment on above: Performed By: #### B MP #### [facility] [address] [place] [address] Dr. Ibis Jimenez RBC 4.01 106/ul Critically low 4.20-5.40 [facility] Comment on above: Performed By: #### B MP #### [facility] [address] [place] [address] Dr. Ibis Jimenez WBC 6.3 103/ul Normal 4.0-11.0 [facility] Comment on above: Performed By: #### B MP #### [facility] [address] [place] [address] Dr. Ibis Jimenez LACTATE/LACTIC ACIDon 2021 Lactate [Moles/Vol] 1.2 mmol/L Normal 0.4-1.9 [facility] Comment on above: Performed By: #### A MM #### [facility] [address] [place] [address] Dr. Ibis Jimenez BUNon 10-02-2021 Urea nitrogen [Mass/Vol] 7.0 mg/dL Normal 7.0-18.0 [facility] Comment on above: Performed By: #### C VDTBH #### [facility] [address] [place] [address] Dr. Ibis Jimenez CBC AUTO DIFFon 10-02-2021 BASO # 0.0 103/ul Normal 0.0-0.1 [facility] Comment on above: Performed By: #### A MM #### [facility] [address] [place] [address] Dr. Ibis Jimenez Basophils/100 WBC (Bld) 0.2 % Normal 0.2-2.0 [facility] Comment on above: Performed By: #### A MM #### [facility] [address] [place] [address] Dr. Ibis Jimenez EO # 0.0 103/ul Normal 0.0-0.7 [facility] Comment on above: Performed By: #### A MM #### [facility] [address] [place] [address] Dr. Ibis Jimenez Eosinophils/100 WBC (Bld) 0.3 % Critically low 0.9-7.0 [facility] Comment on above: Performed By: #### A MM #### [facility] [address] [place] [address] Dr. Ibis Jimenez Erythrocyte distribution width (RBC) [Ratio] 12.7 % Normal 11.0-15.0 [facility] Comment on above: Performed By: #### A MM #### [facility] [address] [place] [address] Dr. Ibis Jimenez Hematocrit (Bld) [Volume fraction] 43.4 % Normal 36.0-48.0 [facility] Comment on above: Performed By: #### A MM #### [facility] [address] [place] [address] Dr. Ibis Jimenez Hemoglobin (Bld) [Mass/Vol] 14.6 g/dL Normal 12.0-16.0 [facility] Comment on above: Performed By: #### A MM #### [facility] [address] [place] [address] Dr. Ibis Jimenez IG # 0.03 10e3/ul Normal 0.00-0.03 [facility] Comment on above: Performed By: #### A MM #### [facility] [address] [place] [address] Dr. Ibis Jimenez IG % 0.3 % Normal 0.0-0.[address] [facility] Comment on above: Performed By: #### A MM #### [facility] [address] [place] [address] Dr. Ibis Jimenez LYMPH # 1.2 103/ul Normal 1.2-3.[address] [facility] Comment on above: Performed By: #### A MM #### [facility] [address] [place] [address] Dr. Ibis Jimenez Lymphocytes/100 WBC (Bld) 11.6 % Critically low 20.5-60.0 [facility] Comment on above: Performed By: #### A MM #### [facility] [address] [place] [address] Dr. Ibis Jimenez MANUAL DIFF REQ NO Normal [facility] Comment on above: Performed By: #### A MM #### [facility] [address] [place] [address] Dr. Ibis Jimenez MCH (RBC) [Entitic mass] 28.5 pg Normal 26.7-34.0 [facility] Comment on above: Performed By: #### A MM #### [facility] [address] [place] [address] Dr. Ibis Jimenez MCHC (RBC) [Mass/Vol] 33.6 g/dL Normal 29.9-35.2 [facility] Comment on above: Performed By: #### A MM #### [facility] [address] [place] [address] Dr. Ibis Jimenez MCV (RBC) [Entitic vol] 84.6 fL Normal 81.0-99.0 [facility] Comment on above: Performed By: #### A MM #### [facility] [address] [place] [address] Dr. Ibis Jimenez MONO # 0.6 103/ul Normal 0.3-0.8 [facility] Comment on above: Performed By: #### A MM #### [facility] [address] [place] [address] Dr. Ibis Jimenez Monocytes/100 WBC (Bld) 5.9 % Normal 1.7-12.0 [facility] Comment on above: Performed By: #### A MM #### [facility] [address] [place] [address] Dr. Ibis Jimenez NEUT # 8.2 103/ul Critically high 1.4-6.5 [facility] Comment on above: Performed By: #### A MM #### [facility] [address] [place] [address] Dr. Ibis Jimenez Neutrophils/100 WBC (Bld) 81.7 % Critically high 43.0-75.0 [facility] Comment on above: Performed By: #### A MM #### [facility] [address] [place] [address] Dr. Ibis Jimenez Platelet mean volume (Bld) [Entitic vol] 9.8 fL Normal 9.5-13.5 [facility] Comment on above: Performed By: #### A MM #### [facility] [address] [place] [address] Dr. Ibis Jimenez PLT 264 103/ul Normal 150-[address] [facility] Comment on above: Performed By: #### A MM #### [facility] [address] [place] [address] Dr. Ibis Jimenez RBC 5.13 106/ul Normal 4.20-5.[address] [facility] Comment on above: Performed By: #### A MM #### [facility] [address] [place] [address] Dr. Ibis Jimenez WBC 10.1 103/ul Normal 4.0-11.0 [facility] Comment on above: Performed By: #### A MM #### [facility] [address] [place] [address] Dr. Ibis Jimenez CREATININEon 10-02-2021 Creatinine [Mass/Vol] 0.69 mg/dL Normal 0.55-1.02 [facility] Comment on above: Performed By: #### C VDTBH #### [facility] [address] [place] [address] Dr. Ibis Jimenez EGFR-AF SWISS >60 Normal >=60 [facility] Comment on above: Performed By: #### C VDTBH #### [facility] [address] [place] [address] Dr. Ibis Jimenez EGFR-NON AF SWISS >60 Normal >=60 [facility] Comment on above: Performed By: #### C VDTBH #### [facility] [address] [place] [address] Dr. Ibis Jimenez CBC AUTO DIFFon 10-01-2021 BASO # 0.0 103/ul Normal 0.0-0.1 [facility] Comment on above: Performed By: #### A MM #### [facility] [address] [place] [address] Dr. Ibis Jimenez Basophils/100 WBC (Bld) 0.3 % Normal 0.2-2.0 [facility] Comment on above: Performed By: #### A MM #### [facility] [address] [place] [address] Dr. Ibis Jimenez EO # 0.1 103/ul Normal 0.0-0.7 [facility] Comment on above: Performed By: #### A MM #### [facility] [address] [place] [address] Dr. Ibis Jimenez Eosinophils/100 WBC (Bld) 1.9 % Normal 0.9-7.0 [facility] Comment on above: Performed By: #### A MM #### [facility] [address] [place] [address] Dr. Ibis Jimenez Erythrocyte distribution width (RBC) [Ratio] 12.7 % Normal 11.0-15.0 [facility] Comment on above: Performed By: #### A MM #### [facility] [address] [place] [address] Dr. Ibis Jimenez Hematocrit (Bld) [Volume fraction] 38.1 % Normal 36.0-48.0 [facility] Comment on above: Performed By: #### A MM #### [facility] [address] [place] [address] Dr. Ibis Jimenez Hemoglobin (Bld) [Mass/Vol] 12.7 g/dL Normal 12.0-16.0 [facility] Comment on above: Performed By: #### A MM #### [facility] [address] [place] [address] Dr. Ibis Jimenez IG # 0.02 10e3/ul Normal 0.00-0.03 [facility] Comment on above: Performed By: #### A MM #### [facility] [address] [place] [address] Dr. Ibis Jimenez IG % 0.3 % Normal 0.0-0.5 [facility] Comment on above: Performed By: #### A MM #### [facility] [address] [place] [address] Dr. Ibis Jimenez LYMPH # 1.9 103/ul Normal 1.2-3.8 [facility] Comment on above: Performed By: #### A MM #### [facility] [address] [place] [address] Dr. Ibis Jimenez Lymphocytes/100 WBC (Bld) 30.5 % Normal 20.5-60.0 [facility] Comment on above: Performed By: #### A MM #### [facility] [address] [place] [address] Dr. Ibis Jimenez MANUAL DIFF REQ NO Normal [facility] Comment on above: Performed By: #### A MM #### [facility] [address] [place] [address] Dr. Ibis Jimenez MCH (RBC) [Entitic mass] 28.3 pg Normal 26.7-34.0 [facility] Comment on above: Performed By: #### A MM #### [facility] [address] [place] [address] Dr. Ibis Jimenez MCHC (RBC) [Mass/Vol] 33.3 g/dL Normal 29.9-35.2 [facility] Comment on above: Performed By: #### A MM #### [facility] [address] [place] [address] Dr. Ibis Jimenez MCV (RBC) [Entitic vol] 85.0 fL Normal 81.0-99.0 [facility] Comment on above: Performed By: #### A MM #### [facility] [address] [place] [address] Dr. Ibis Jimenez MONO # 0.3 103/ul Normal 0.3-0.8 [facility] Comment on above: Performed By: #### A MM #### [facility] [address] [place] [address] Dr. Ibis Jimenez Monocytes/100 WBC (Bld) 5.2 % Normal 1.7-12.0 [facility] Comment on above: Performed By: #### A MM #### [facility] [address] [place] [address] Dr. Ibis Jimenez NEUT # 3.9 103/ul Normal 1.4-6.[address] [facility] Comment on above: Performed By: #### A MM #### [facility] [address] [place] [address] Dr. Ibis Jimenez Neutrophils/100 WBC (Bld) 61.8 % Normal 43.0-75.[address] [facility] Comment on above: Performed By: #### A MM #### [facility] [address] [place] [address] Dr. Ibis Jimenez Platelet mean volume (Bld) [Entitic vol] 9.7 fL Normal 9.5-13.[address] [facility] Comment on above: Performed By: #### A MM #### [facility] [address] [place] [address] Dr. Ibis Jimenez PLT 255 103/ul Normal 150-[address] [facility] Comment on above: Performed By: #### A MM #### [facility] [address] [place] [address] Dr. Ibis Jimenez RBC 4.48 106/ul Normal 4.20-5.[address] [facility] Comment on above: Performed By: #### A MM #### [facility] [address] [place] [address] Dr. Ibis Jimenez WBC 6.3 103/ul Normal 4.0-11.[address] [facility] Comment on above: Performed By: #### A MM #### [facility] [address] [place] [address] Dr. Ibis Jimenez PREG HCG QUALon 10-01-2021 , QUAL Negative Normal NEGATIVE The [facility] Comment on above: Performed By: #### M DAVID #### [facility] [address] [place] [address] Dr. Ibis Jimenez Covid-19 PCR (CVDTB)on 09-20 SARS-CoV-2 (COVID-19) RNA SAURABH+probe Ql (Unsp spec) Not detected Normal NOT DETECTED [facility] Comment on above: Result Comment: This test is not yet approved or cleared by the [place] FDA. When there are no FDA-approved or cleared tests available, and other criteria are met, FDA can make tests available under an emergency access mechanism called an Emergency Use Authorization (EUA). The EUA for this test is supported by the [place] of Health and Human Service's (HHS's) declaration [...] SARS-CoV-2. Performed By: #### B MP #### [facility] [address] [address] [address] Ibis Jimenez TYPE AND SCREENon 09-29-2021 TYPE AND SCREEN Negative Normal The [facility] Comment on above: Performed By: #### B MP #### [facility] [address] [address] [address] Ibis Jimenez Covid-19 PCR (CVDTB)on SARS-CoV-2 (COVID-19) RNA SAURABH+probe Ql (Unsp spec) Not detected Normal NOT DETECTED [facility] Comment on above: Result Comment: This test is not yet approved or cleared by the [place] FDA. When there are no FDA-approved or cleared tests available, and other criteria are met, FDA can make tests available under an emergency access mechanism called an Emergency Use Authorization (EUA). The EUA for this test is supported by the [employer] of Health and Human Service's (HHS's) [...] SARS-CoV-2. Performed By: #### C VDTBH #### [facility] [address] [place] [address] Dr. Ibis Jimneez TYPE AND SCREENon 09-21-2021 TYPE AND SCREEN Negative Normal The [facility] Comment on above: Performed By: #### B MP #### [facility] [address] [place] [address] Dr. Ibis Jimenez CHLAMYDIA/GONOCOCCUS SAURABH ( AB/URINE/PAPon 08-17-2021 Chlamydia trachomatis, SAURABH Negative Normal Negative [facility] Comment on above: Performed By: #### A RYAN SALYC #### [facility] [address] [place] [address] Dr. Ibis Jimenez Neisseria gonorrhoeae, SAURABH Negative Normal Negative [facility] Comment on above: Performed By: #### A RYAN SALYC #### [facility] [address] [place] [address] Dr. Ibis Jimenez CBC AUTO DIFFon 08-14-2021 BASO # 0.0 103/ul Normal 0.0-0.1 [facility] Comment on above: Performed By: #### C VDTBH #### [facility] [address] [place] [address] Dr. Ibis Jimenez Basophils/100 WBC (Bld) 0.3 % Normal 0.2-2.0 [facility] Comment on above: Performed By: #### C VDTBH #### [facility] [address] [place] [address] Dr. Ibis Jimenez EO # 0.2 103/ul Normal 0.0-0.7 [facility] Comment on above: Performed By: #### C VDTBH #### [facility] [address] [place] [address] Dr. Ibis Jimenez Eosinophils/100 WBC (Bld) 2.5 % Normal 0.9-7.0 [facility] Comment on above: Performed By: #### C VDTBH #### [facility] [address] [place] [address] Dr. Ibis Jimenez Erythrocyte distribution width (RBC) [Ratio] 13.0 % Normal 11.0-15.0 [facility] Comment on above: Performed By: #### C VDTBH #### [facility] [address] [place] [address] Dr. Ibis Jimenez Hematocrit (Bld) [Volume fraction] 38.1 % Normal 36.0-48.0 [facility] Comment on above: Performed By: #### C VDTBH #### [facility] [address] [place] [address] Dr. Ibis Jimenez Hemoglobin (Bld) [Mass/Vol] 12.8 g/dL Normal 12.0-16.0 [facility] Comment on above: Performed By: #### C VDTBH #### [facility] [address] [place] [address] Dr. Ibis Jimenez IG # 0.02 10e3/ul Normal 0.00-0.03 [facility] Comment on above: Performed By: #### C VDTBH #### [facility] [address] [place] [address] Dr. Ibis Jimenez IG % 0.3 % Normal 0.0-0.5 [facility] Comment on above: Performed By: #### C VDTBH #### [facility] [address] [place] [address] Dr. Ibis Jimenez LYMPH # 1.5 103/ul Normal 1.2-3.[address] [facility] Comment on above: Performed By: #### C VDTBH #### [facility] [address] [place] [address] Dr. Ibis Jimenez Lymphocytes/100 WBC (Bld) 22.5 % Normal 20.5-60.0 [facility] Comment on above: Performed By: #### C VDTBH #### [facility] [address] [place] [address] Dr. Ibis Jimenez MANUAL DIFF REQ NO Normal [facility] Comment on above: Performed By: #### C VDTBH #### [facility] [address] [place] [address] Dr. Ibis Jimenez MCH (RBC) [Entitic mass] 28.6 pg Normal 26.7-34.0 [facility] Comment on above: Performed By: #### C VDTBH #### [facility] [address] [place] [address] Dr. Ibis Jimenez MCHC (RBC) [Mass/Vol] 33.6 g/dL Normal 29.9-35.2 [facility] Comment on above: Performed By: #### C VDTBH #### [facility] [address] [place] [address] Dr. Ibis Jimenez MCV (RBC) [Entitic vol] 85.0 fL Normal 81.0-99.0 [facility] Comment on above: Performed By: #### C VDTBH #### [facility] [address] [place] [address] Dr. Ibis Jimenez MONO # 0.4 103/ul Normal 0.3-0.8 [facility] Comment on above: Performed By: #### C VDTBH #### [facility] [address] [place] [address] Dr. Ibis Jimenez Monocytes/100 WBC (Bld) 6.3 % Normal 1.7-12.0 [facility] Comment on above: Performed By: #### C VDTBH #### [facility] [address] [place] [address] Dr. Ibis Jimenez NEUT # 4.6 103/ul Normal 1.4-6.5 [facility] Comment on above: Performed By: #### C VDTBH #### [facility] [address] [place] [address] Dr. Ibis Jimenez Neutrophils/100 WBC (Bld) 68.1 % Normal 43.0-75.0 [facility] Comment on above: Performed By: #### C VDTBH #### [facility] [address] [place] [address] Dr. Ibis Jimenez Platelet mean volume (Bld) [Entitic vol] 9.8 fL Normal 9.5-13.5 [facility] Comment on above: Performed By: #### C VDTBH #### [facility] [address] [place], [place] [address] Dr. Ibis Jimenez PLT 243 103/ul Normal 150-[address] [facility] Comment on above: Performed By: #### C VDTBH #### [facility] [address] [place], [place] [address] Dr. Ibis Jimenez RBC 4.48 106/ul Normal 4.20-5.40 [facility] Comment on above: Performed By: #### C VDTBH #### [facility] [address] [place], [place] [address] Dr. Ibis Jimenez WBC 6.7 103/ul Normal 4.0-11.0 [facility] Comment on above: Performed By: #### C VDTBH #### [facility] [address] [place], [place] [address] ABD/PELVIS WO CONon [...] cholecystectomy and appendectomy. Electronically authenticated by: NELI CARRLANNY Date: 2021-08-14 18:[address] [facility] ER URINE PROFILEon 2 Bilirubin Ql (U) SMALL Abnormal NEGATIVE The [facility] Comment on above: Performed By: #### B MP #### [facility] [address] [address] [address] Ibis Jimenez Clarity (U) CLEAR Normal CLEAR [facility] Comment on above: Performed By: #### B MP #### [facility] [address] [place] [address] Dr. Ibis Jimenez Color (U) YELLOW Normal YELLOW [facility] Comment on above: Performed By: #### B MP #### [facility] [address] [place] [address] Dr. Ibis RODRIGUEZ A micrscopic examination will be performed if indicated. Normal [facility] Comment on above: Performed By: #### B MP #### [facility] [address] [place] [address] Dr. Ibis Jimenez Glucose Ql (U) Negative Normal NEGATIVE [facility] Comment on above: Performed By: #### B MP #### [facility] [address] [place] [address] Dr. Ibis Jimenez Hemoglobin Ql (U) SMALL Abnormal NEGATIVE [facility] Comment on above: Performed By: #### B MP #### [facility] [address] [place] [address] Dr. Ibis Jimenez Ketones Ql (U) TRACE Abnormal NEGATIVE [facility] Comment on above: Performed By: #### B MP #### [facility] [address] [place] [address] Dr. Ibis Jimenez LEUKOCYTES Negative Normal NEGATIVE [facility] Comment on above: Performed By: #### B MP #### [facility] [address] [place] [address] Dr. Ibis Jimenez Nitrite Ql (U) Negative Normal NEGATIVE [facility] Comment on above: Performed By: #### B MP #### [facility] [address] [address] [address] Ibis Jimenez pH (U) 5.5 [pH] Normal 5-9 [facility] Comment on above: Performed By: #### B MP #### [facility] [address] [place] [address] Dr. Ibis Jimenez SPEC GRAVITY >=1.030 Abnormal 1.005-<=1.02 5 [facility] Comment on above: Performed By: #### B MP #### [facility] [address] [place] [address] Dr. Ibis Jimenez UA PROTEIN TRACE Normal NEGATIVE/ TRACE [facility] Comment on above: Performed By: #### B MP #### [facility] [address] [place] [address] Dr. Ibis Jimenez UR MICRO IND INDICATED Normal [facility] Comment on above: Performed By: #### B MP #### [facility] [address] [place] [address] Dr. Ibis Jimenez Urobilinogen Qn (U) 1.0 {Dinorah'U}/dL Normal 0.2 - 1. 0 [facility] Comment on above: Performed By: #### B MP #### [facility] [address] [place] [address] Dr. Ibis Jimenez URon 08-14-2021 , QUAL Negative Normal NEGATIVE [facility] Comment on above: Performed By: #### B MP #### [facility] [address] [place] [address] Dr. Ibis Jimenez PROF CHEM 8 (BAS METB)on Anion gap [Moles/Vol] 15.3 mmol/L Normal [facility] Comment on above: Performed By: #### B MP #### [facility] [address] [place] [address] Dr. Ibis Jimenez Calcium [Mass/Vol] 8.4 mg/dL Critically low 8.5-10.1 [facility] Comment on above: Performed By: #### B MP #### [facility] [address] [address] [address] Ibis Jimenez Chloride [Moles/Vol] 106 mmol/L Normal 98-107 [facility] Comment on above: Performed By: #### B MP #### [facility] [address] [address] [address] Ibis Jimenez CO2 [Moles/Vol] 22.3 mmol/L Normal 21.0-32.0 [facility] Comment on above: Performed By: #### B MP #### [facility] [address] [address] [address] Ibis Jimenez Creatinine [Mass/Vol] 0.75 mg/dL Normal 0.55-1.02 [facility] Comment on above: Performed By: #### B MP #### [facility] [address] [place] [address] Dr. Ibis Jimenez EGFR-AF SWISS >60 Normal >=60 [facility] Comment on above: Performed By: #### B MP #### [facility] [address] [place] [address] Dr. Ibis Jimenez EGFR-NON AF SWISS >60 Normal >=60 [facility] Comment on above: Performed By: #### B MP #### [facility] [address] [place] [address] Dr. Ibis Jimenez Glucose [Mass/Vol] 107 mg/dL Critically high 74-106 [facility] Comment on above: Performed By: #### B MP #### [facility] [address] [address] [address] Ibis Jimenez Potassium [Moles/Vol] 3.6 mmol/L Normal 3.5-5.1 [facility] Comment on above: Performed By: #### B MP #### [facility] [address] [place] [address] Dr. Ibis Jimenez Sodium [Moles/Vol] 140 mmol/L Normal 136-145 [facility] Comment on above: Performed By: #### B MP #### [facility] [address] [place] [address] Dr. Ibis Jimenez Urea nitrogen [Mass/Vol] 13.0 mg/dL Normal 7.0-18.[address] [facility] Comment on above: Performed By: #### B MP #### [facility] [address] [place] [address] Dr. Ibis Jimenez Urea nitrogen/Creatinine [Mass ratio] 17.3 mg/mg Normal [facility] Comment on above: Performed By: #### B MP #### [facility] [address] [place] [address] Dr. Ibis Jimenez URINE MICROSCOPIC ONLYon BACTERIA TRACE Abnormal NONE SEEN [facility] Comment on above: Performed By: #### B MP #### [facility] [address] [place] [address] Dr. Ibis Jimenez Bacteria identified Cx Nom (U) NOT INDICATED Normal [facility] Comment on above: Performed By: #### B MP #### [facility] [address] [place] [address] Dr. Ibis Jimenez CAST NONE SEEN Normal NONE SEEN [facility] Comment on above: Performed By: #### B MP #### [facility] [address] [place] [address] Dr. Ibis Jimenez Crystals LM Nom (Urine sed) NONE SEEN Normal NONE SEEN [facility] Comment on above: Performed By: #### B MP #### [facility] [address] [place] [address] Dr. Ibis Jimenez Epithelial cells LM Ql (Urine sed) MANY Abnormal NONE SEEN /RARE [facility] Comment on above: Performed By: #### B MP #### [facility] [address] [place] [address] Dr. Ibis Jimenez MUCOUS SMALL Abnormal NONE SEEN [facility] Comment on above: Performed By: #### B MP #### [facility] [address] [place] [address] Dr. Ibis Jimenez RBC 2-5 Abnormal 0-[address] [facility] Comment on above: Performed By: #### B MP #### [facility] [address] [place] [address] Dr. Ibis Jimenez WBC 2-5 Abnormal NONE SEEN [facility] Comment on above: Performed By: #### B MP #### [facility] [address] [address] [address] Ibis Jimenze CBC Auto DifferentialOrdered By: Vielka Ching on 12-24-2020 [employer] Eos # 0.44 [employer] [facility] Work Phone: Absolute Immature Granulocyte 0.05 [employer] Work Phone: Absolute Lymph # 2.48 [employer] [facility] Work Phone: Absolute [place] # 0.55 [employer] [facility] Work Phone: Basophils (Bld) [#/Vol] 10*3/uL [employer] Work Phone: Basophils/100 WBC (Bld) 0 % 0 - 2 % [employer] Work Phone: Differential Type NOT REPORTED [employer] Work Phone: Eosinophils/100 WBC (Bld) 5 % High 1 - 4 % [employer] Work Phone: Hematocrit (Bld) [Volume fraction] 37.4 % 36.3 - 47.1 % [employer] Work Phone: Hemoglobin.gastrointest inal spec 1 Ql (Stl) 12.3 g/dL 11.9 - 15.1 g/dL [employer] Phone: Immature granulocytes/100 WBC (Bld) 1 % High 0 [employer] Work Phone: Interpretation and review of laboratory results Abnormal [facility] Phone: Lymphocytes/100 WBC (Bld) 30 % 24 - 43 % [employer] Work Phone: MCH (RBC) [Entitic mass] 28.5 pg 25.2 - 33.5 pg [employer] Work Phone: MCHC (RBC) [Mass/Vol] 32.9 g/dL 28.4 - 34.8 g/dL [facility] Phone: MCV (RBC) [Entitic vol] 86.8 fL 82.6 - 102.9 fL [facility] Phone: Monocytes/100 WBC (Bld) 7 % 3 - 12 % M [facility] [employer] Work Phone: NRBC Automated 0.0 0.0 per 100 WBC [facility] Phone: Platelet distribution width (Bld) [Ratio] 12.7 % 11.8 - 14.4 % [facility] Phone: Platelet Estimate NOT REPORTED [facility] Phone: Platelet mean volume (Bld) [Entitic vol] 9.4 fL 8.1 - 13.5 fL [facility] Phone: Platelets (Bld) [#/Vol] 252 10*3/uL [facility] Phone: RBC (Bld) [#/Vol] 4.31 10*6/uL 3.95 - 5.1 1 m/uL [facility] Phone: RBC (Bld) [#/Vol] NOT REPORTED [facility] Phone: Segmented neutrophils/100 WBC (Bld) 57 % 36 - 65 % [facility] Phone: Segs Absolute 4.78 [employer] [facility] [employer] Work Phone: WBC (Bld) [#/Vol] 8.3 10*3/uL [facility] Phone: WBC (Bld) [#/Vol] NOT REPORTED [facility] Phone: [facility] Work Phone: CBC with Diffon 12-24-2020 Abs. Basophil <0.03 Normal 0.00-0.20 [facility] Comment on above: Performed By: #### C MPX, CDP #### [facility] [address] [place] [address] Dr. [place], [place] [id number] Electrical Unit Rebuilder: Souleymane Pineda MD Abs.Imm.Granulocyte 0.05 k/uL Normal 0.00-0.30 [facility] Comment on above: Performed By: #### C MPX, CDP #### [address] [place] [address] Electrical Unit Rebuilder: Souleymane Pineda MD Abs.Neutrophil (Seg) 4.78 k/uL Normal 1.50-8.10 [facility] Comment on above: Performed By: #### C MPX, CDP #### [address] [place] [id number] [employer]: Souleymane Pineda MD Basophils/100 WBC (Bld) 0 % Normal 0-2 [facility] Comment on above: Performed By: #### C MPX, CDP #### [address] [place], [place] [address] Electrical [employer]builder: Souleymane Pineda MD Eosinophils (Bld) [#/Vol] 0.44 10*3/uL Normal 0.00-0.44 [facility] Comment on above: Performed By: #### C MPX, CDP #### [address] [place], [facility] Electrical [employer]builder: Souleymane Pineda MD Eosinophils/100 WBC (Bld) 5 % High 1-4 [facility] Comment on above: Performed By: #### C MPX, CDP #### [address] [place], [facility] Electrical Unit Rebuilder: Souleymane Pineda MD Erythrocyte distribution width (RBC) [Ratio] 12.7 % Normal 11.8-14.4 [facility] Comment on above: Performed By: #### C MPX, CDP #### [address] [place] [id number] Electrical [employer]builder: Souleymane Pineda MD Hematocrit (Bld) [Volume fraction] 37.4 % Normal 36.3-47.1 [facility] Comment on above: Performed By: #### C MPX, CDP #### [facility] [address] [place], [place] [id number] Electrical Unit Rebuilder: Souleymane Pineda MD Hemoglobin (Bld) [Mass/Vol] 12.3 g/dL Normal 11.9-15.1 [facility] Comment on above: Performed By: #### C MPX, CDP #### [facility] [address] [place], [place] [id number] Electrical Unit Rebuilder: Souleymane Pineda MD Immature granulocytes/100 WBC (Bld) 1 % High 0 [facility] Comment on above: Performed By: #### C MPX, CDP #### [facility] [address] [place] [address] Dr. [place], [place] [id number] Electrical Unit Rebuilder: Souleymane Pineda MD Lymphocytes (Bld) [#/Vol] 2.48 10*3/uL Normal 1.10-3.70 [facility] Comment on above: Performed By: #### C MPX, CDP #### [address] [place], [place] [id number] Electrical Unit Rebuilder: Souleymane Pineda MD Lymphocytes/100 WBC (Bld) 30 % Normal 24-43 [facility] Comment on above: Performed By: #### C MPX, CDP #### [facility] [address] [place], [place] [id number] Electrical Unit Rebuilder: Souleymane Pineda MD MCH (RBC) [Entitic mass] 28.5 pg Normal 25.2-33.5 [facility] Comment on above: Performed By: #### C MPX, CDP #### [facility] [address] [place], [place] [id number] Electrical Unit Rebuilder: Souleymane Pineda MD MCHC (RBC) [Mass/Vol] 32.9 g/dL Normal 28.4-34.8 [facility] Comment on above: Performed By: #### C MPX, CDP #### [address] [place] [address] Electrical Unit Rebuilder: Souleymane Pineda MD MCV (RBC) [Entitic vol] 86.8 fL Normal 82.6-102.9 [facility] Comment on above: Performed By: #### C MPX, CDP #### [facility] [address] [place] [address] Electrical Unit Rebuilder: Souleymane Pineda MD Monocytes (Bld) [#/Vol] 0.55 10*3/uL Normal 0.10-1.20 [facility] Comment on above: Performed By: #### C MPX, CDP #### [address] [place] [address] Electrical Unit Rebuilder: Souleymane Pineda MD Monocytes/100 WBC (Bld) 7 % Normal 3-12 [facility] Comment on above: Performed By: #### C MPX, CDP #### [address] [place], [facility]83 Electrical Unit Rebuilder: Souleymane Pineda MD Neutrophil (Seg) 57 % Normal 36-65 [facility] Comment on above: Performed By: #### C MPX, CDP #### [address] [place] [address] Electrical Unit Rebuilder: Souleymane Pineda MD NRBC Automated 0.0 per 100 WBC Normal 0.0 [facility] Comment on above: Performed By: #### C MPX, CDP #### [address] [place] [address] Electrical Unit Rebuilder: Souleymane Pineda MD Platelet mean volume (Bld) [Entitic vol] 9.4 fL Normal 8.1-13.5 [facility] Comment on above: Performed By: #### C MPX, CDP #### [facility] [address] [place], [place] [id number] Electrical Unit Rebuilder: Souleymane Pineda MD Platelets (Bld) [#/Vol] 252 10*3/uL Normal 138-453 [facility] Comment on above: Performed By: #### C MPX, CDP #### [facility] [address] [place], [place] [id number] Electrical Unit Rebuilder: Souleymane Pineda MD RBC (Bld) [#/Vol] 4.31 10*6/uL Normal 3.95-5.11 [facility] Comment on above: Performed By: #### C MPX, CDP #### [facility] [address] [place], [place] [id number] Electrical Unit Rebuilder: Souleymane Pineda MD WBC (Bld) [#/Vol] 8.3 10*3/uL Normal 3.5-11.3 [facility] Comment on above: Performed By: #### C MPX, CDP #### [facility] [address] [place], [place] [id number] Electrical Unit Rebuilder: Souleymane Pineda MD Auto Diff Performed NOT REPORTED Normal [facility] Comment on above: Performed By: #### C MPX, CDP #### [facility] [address] [place], [place] [id number] Electrical Unit Rebuilder: Souleymane Pineda MD Platelet Comment NOT REPORTED Normal [facility] Comment on above: Performed By: #### C MPX, CDP #### [facility] [address] [place], [place] [phone] Electrical Unit Rebuilder: Souleymane Pineda MD RBC morphology finding Nom (Bld) NOT REPORTED Normal [facility] Comment on above: Performed By: #### C MPX, CDP #### [facility] [address] [place], [place] [phone] Electrical Unit Rebuilder: Souleymane Pineda MD WBC Morphology NOT REPORTED Normal [facility] Comment on above: Performed By: #### C MPX, CDP #### [facility] [address] [place] [address] Electrical Unit Rebuilder: Souleymane Pineda MD CT HEAD WO CONTRASTon [...] the orbits demonstrate no acute abnormality. SINUSES: Umbg-ow-oxelihnr paranasal sinus mucosal thickening. SOFT TISSUES/SKULL: No acute abnormality of the visualized skull or soft tissues. IMPRESSION: No acute intracranial abnormality. Interpreted by: Edwin Bentley MD Signed by: Edwin Bentley MD 12/24/20 Final result Normal [facility] CT Head WO ContrastOrdered B y: Vielka Ching on 12-24-2020 No acute intracranial abnormality. [facility] Work Phone: EXAMINATION: CT OF [...] the orbits demonstrate no acute abnormality. SINUSES: Pbjz-ff-xinlhymc paranasal sinus mucosal thickening. SOFT TISSUES/SKULL: No acute abnormality of the visualized skull or soft tissues. [facility] Phone: Dimitri, Mhpn Incoming Radiant Results From [employer] - 12/24/2020 8:49 PM EDT EXAMINATION: CT [...] the orbits demonstrate no acute abnormality. SINUSES: Yimk-ms-utcivisu paranasal sinus mucosal thickening. SOFT TISSUES/SKULL: No acute abnormality of the visualized skull or soft tissues. IMPRESSION: No acute intracranial abnormality. [facility] Phone: [facility] Phone: Comp Metabolic Pr/rfx MGon 1 02-24-2020 Bilirubin [Mass/Vol] mg/dL Low 0.3-1.2 [facility] Comment on above: Performed By: #### C MPX, CDP #### [facility] [address] [place] [address] Electrical Unit Rebuilder: Souleymane Pineda MD (cont.) Normal [facility] Comment on above: Result Comment: Aver age GFR for 20-29 years old: 116 mL/min/1.73sq m Chronic Kidney Disease: <60 mL/min/1.73sq m Kidney failure: <15 mL/min/1.73sq m eGFR calculated using average adult body mass. Additional eGFR calculator available at: http://www.[employer]/multiple_crcl_2012.htm Performed By: #### C MPX, CDP #### [facility] [address] [place] [address] Electrical Unit Rebuilder: Souleymane Pineda MD Albumin [Mass/Vol] 4.0 g/dL Normal 3.5-5.2 [facility] Comment on above: Performed By: #### C MPX, CDP #### [facility] [address] [place] [address] Electrical Unit Rebuilder: Souleymane Pineda MD Albumin/Glob Ratio 1.5 Normal 1.0-2.5 [facility] Comment on above: Performed By: #### C MPX, CDP #### [facility] [address] [place], [place] [id number] Electrical Unit Rebuilder: Souleymane Pineda MD Alkaline Phos 90 U/L Normal 35-104 [facility] Comment on above: Performed By: #### C MPX, CDP #### [facility] [address] [place], [place] [id number] Electrical Unit Rebuilder: Souleymane Pineda MD ALT [Catalytic activity/Vol] 40 U/L High 5-33 [facility] Comment on above: Performed By: #### C MPX, CDP #### [facility] [address] [place], [place] [id number] Electrical Unit Rebuilder: Souleymane Pineda MD Anion gap [Moles/Vol] 11 mmol/L Normal 9-17 [facility] Comment on above: Performed By: #### C MPX, CDP #### [facility] [address] [place] [address] Electrical Unit Rebuilder: Souleymane Pineda MD AST [Catalytic activity/Vol] 19 U/L Normal <32 [facility] Comment on above: Performed By: #### C MPX, CDP #### [facility] [address] [place] [address] Electrical Unit Rebuilder: Souelymane Pineda MD BUN/CRE Ratio 15 Normal 9-20 [facility] Comment on above: Performed By: #### C MPX, CDP #### [facility] [address] [place], [place] [id number] Electrical Unit Rebuilder: Souleymane Pineda MD Calcium [Mass/Vol] 8.9 mg/dL Normal 8.6-10.4 [facility] Comment on above: Performed By: #### C MPX, CDP #### [facility] [address] [place], [place] [id number] Electrical Unit Rebuilder: Souleymane Pineda MD Chloride [Moles/Vol] 104 mmol/L Normal 98-107 [facility] Comment on above: Performed By: #### C MPX, CDP #### [facility] [address] [place], [place] [id number] Electrical Unit Rebuilder: Souleymane Pineda MD CO2 [Moles/Vol] 24 mmol/L Normal 20-31 [facility] Comment on above: Performed By: #### C MPX, CDP #### [facility] [address] [place], [place] [id number] Electrical Unit Rebuilder: Souleymane Pineda MD Creatinine [Mass/Vol] 0.60 mg/dL Normal 0.50-0.90 [facility] Comment on above: Performed By: #### C MPX, CDP #### [facility] [address] [place] [address] Electrical Unit Rebuilder: Souleymane Pineda MD GFR, Amer >60 Normal >60 [facility] Comment on above: Performed By: #### C MPX, CDP #### [facility] [address] [place], [place] [phone] Electrical Unit Rebuilder: Souleymane Pineda MD GFR,non Amer >60 Normal >60 [facility] Comment on above: Performed By: #### C MPX, CDP #### [facility] [address] [place], [place] [id number] Electrical Unit Rebuilder: Souleymane Pineda MD Glucose [Mass/Vol] 91 mg/dL Normal 70-99 [facility] Comment on above: Performed By: #### C MPX, CDP #### [facility] [address] [place], [place] [id number] Electrical Unit Rebuilder: Souleymane Pineda MD Potassium [Moles/Vol] 4.0 mmol/L Normal 3.7-5.3 [facility] Comment on above: Performed By: #### C MPX, CDP #### [facility] [address] [place] [address] Dr. [place], [place] [id number] Electrical Unit Rebuilder: Souleymane Pineda MD Protein [Mass/Vol] 6.7 g/dL Normal 6.4-8.3 [facility] Comment on above: Performed By: #### C MPX, CDP #### [address] [place], [place] [id number] Electrical Unit Rebuilder: Suoleymane Pineda MD Sodium [Moles/Vol] 139 mmol/L Normal 135-144 [facility] Comment on above: Performed By: #### C MPX, CDP #### [facility] [address] [place], [place] [phone] Electrical Unit Rebuilder: Souleymane Pineda MD Staging: Normal [facility] Comment on above: Result Comment: Stag e 1: Some kidney damage normal GFR Stage 2: Mild kidney damage GFR 60-89 Stage 3: Moderate kidney damage GFR 30-59 Stage 4: Severe kidney damage GFR 15-29 Stage 5: Severe kidney damage GFR <15 ESRD - chronic treatment by dialysis or transplant Performed By: #### C MPX, CDP #### [facility] [address] [place] [address] Electrical Unit Rebuilder: Souleymane Pineda MD Urea nitrogen [Mass/Vol] 9 mg/dL Normal 6-20 [facility] Comment on above: Performed By: #### C MPX, CDP #### [facility] [address] [place] [address] Electrical Unit Rebuilder: Souleymane Pineda MD Comprehensive Metabolic Pane l w/ Reflex to MGOrdered By: Vielka Ching on 12-24-2020 Albumin [Mass/Vol] 4 g/dL 3.5 - 5.2 g/dL [facility] Phone: Albumin/Globulin [Mass ratio] 1.5 {ratio} [facility] Phone: ALP (Bld) [Catalytic activity/Vol] 90 U/L 35 - 104 U/L [facility] Phone: ALT [Catalytic activity/Vol] 40 U/L High 5 - 33 U/L [facility] Phone: Anion gap [Moles/Vol] 11 mmol/L 9 - 17 mmol/L [facility] Phone: AST [Catalytic activity/Vol] 19 U/L <32 [facility] Phone: Bilirubin [Mass/Vol] mg/dL Low 0.3 - 1 .2 mg/dL [facility] Phone: Calcium [Mass/Vol] 8.9 mg/dL 8.6 - 10. 4 mg/dL [facility] Phone: Chloride [Moles/Vol] 104 mmol/L 98 - 10 7 mmol/L [facility] Phone: CO2 [Moles/Vol] 24 mmol/L 20 - 31 mmol/L [facility] Phone: Creatinine [Mass/Vol] 0.6 mg/dL 0.50 - 0.90 mg/dL [facility] Phone: Free PSA/Total PSA [Mass fraction] 6.7 g/dL 6.4 - 8.3 g/dL [facility] Phone: GFR >60 >60 mL/min [employer] Phone: GFR Non- >60 >60 mL/min [facility] Phone: Glucose [Mass/Vol] 91 mg/dL 70 - 99 mg/dL [facility] Phone: Interpretation and review of laboratory results Abnormal [facility] Phone: Potassium [Moles/Vol] 4.0 mmol/L 3.7 - 5.3 mmol/L [facility] Phone: Sodium [Moles/Vol] 139 mmol/L 135 - 144 mmol/L [facility] Phone: Urea nitrogen (BldV) [Mass/Vol] 9 mg/dL 6 - 20 mg/dL [facility] Phone: Urea nitrogen/Creatinine (Bld) [Mass ratio] 15 [facility] Phone: [facility] Phone: Laboratory - Chemistry and C hemistry - challengeOrdered By: Vielka Ching on 12-24-2020 GFR/1.73 sq M.predicted MDRD (S/P/Bld) [Vol rate/Area] [facility] Phone: Comment on above: Average GFR for 20-2 9 years old: 116 mL/min/1.73sq m Chronic Kidney Disease: <60 mL/min/1.73sq m Kidney failure: <15 mL/min/1.73sq m eGFR calculated using average adult body mass. Additional eGFR calculator available at: http://www.[employer]/multiple_crcl_2012.htm Stage 1: Some kidney damage normal GFR [...] pressure 62 mm[Hg] Infusion 7 Work Phone: [facility] 04-14-2023 11:08-0500 Heart rate 84 /min Infusion 7 Work Phone: [facility] 04-14-2023 11:08-0500 Systolic blood pressure 109 mm[Hg] Infusion 7 Work Phone: [facility] 04-13-2023 10:50-0500 Diastolic blood pressure 63 mm[Hg] Infusion 7 Work Phone: [facility] 04-13-2023 10:50-0500 Heart rate 86 /min Infusion 7 Work Phone: [facility] 04-13-2023 10:50-0500 Systolic blood pressure 127 mm[Hg] Infusion 7 Work Phone: [facility] 04-12-2023 13:45-0500 Diastolic blood pressure 58 mm[Hg] Infusion 7 Work Phone: [facility] 04-12-2023 13:45-0500 Heart rate 79 /min Infusion 7 Work Phone: [facility] 04-12-2023 13:45-0500 Systolic blood pressure 120 mm[Hg] Infusion 7 Work Phone: [facility] 11-11-2022 10:55-0400 Diastolic blood pressure 63 mm[Hg] Infusion 8 Work Phone: [facility] 11-11-2022 10:55-0400 Heart rate 83 /min Infusion 8 Work Phone: [facility] 11-11-2022 10:55-0400 Systolic blood pressure 110 mm[Hg] Infusion 8 Work Phone: [facility] 07-28-2022 10:15-0400 Diastolic blood pressure 50 mm[Hg] Infusion 8 Work Phone: [facility] 07-28-2022 10:15-0400 Heart rate 80 /min Infusion 8 Work Phone: [facility] 07-28-2022 10:15-0400 Systolic blood pressure 105 mm[Hg] Infusion 8 Work Phone: [facility] 12-03-2021 09:47-0400 Diastolic blood pressure 81 mm[Hg] Jesse Borrego MD Work Phone: [facility] 12-03-2021 09:47-0400 Heart rate 66 /min Jesse Borrego MD Work Phone: [facility] 12-03-2021 09:47-0400 SaO2% (BldA) [Mass fraction] 100 % Jesse Borrego MD Work Phone: [facility] 12-03-2021 09:47-0400 Systolic blood pressure 131 mm[Hg] Jesse Borrego MD Work Phone: [facility] 10-20-2021 12:00-0400 Diastolic blood pressure 101 mm[Hg] Lucila Mota MD Work Phone: [facility] 10-20-2021 12:00-0400 Heart rate 85 /min Lucila Mota MD Work Phone: [facility] 10-20-2021 12:00-0400 Respiratory rate 12 /min Lucila Mota MD Work Phone: [facility] 10-20-2021 12:00-0400 SaO2% (BldA) [Mass fraction] 98 % Lucila Mota MD Work Phone: [facility] 10-20-2021 12:00-0400 Systolic blood pressure 136 mm[Hg] Lucila Mota MD Work Phone: [facility] 10-20-2021 08:00-0400 Body temperature 98.2 [degF] Lucila Mota MD Work Phone: [facility] 12-24-2020 19:36-0400 Body temperature 99 [degF] Vielka Ching DO Work Phone: [facility] Phone: 12-24-2020 19:36-0400 Diastolic blood pressure 80 mm[Hg] Vielka Ching DO Work Phone: [employer] Work Phone: 12-24-2020 19:36-0400 Heart rate 108 /min Vielka Ching DO Work Phone: [employer] Work Phone: 12-24-2020 19:36-0400 Respiratory rate 20 /min Vielka Ching DO Work Phone: [employer] Work Phone: 12-24-2020 19:36-0400 SaO2% (BldA) [Mass fraction] 96 % Vielka Ching DO Work Phone: [facility] Phone: 12-24-2020 19:36-0400 Systolic blood pressure 136 mm[Hg] Vielka Ching DO Work Phone: [facility] Phone: Encounters Encounter Date Encounter Type Care Provider Facility Start: 06-23-2023 ambulatory Ramsey Nunn acility:[facility] Start: 06-19-2023 End: 06-19-2023 ambulatory ZAY BLAS Not Available Start: 04-14-2023 End: 04-14-2023 ambulatory SUZAN DRIVER Facility:[facility] Start: 04-14-2023 End: 04-14-2023 ambulatory Infusion Main Chair 7 Work Phone: Neurology Comment on above: Chronic migraine wit hout aura, with intractable migraine, so stated, with status migrainosus (Primary Dx); 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 with status migrainosus Start: 04-14-2023 End: 04-14-2023 Patient encounter procedure Suzan Driver [employer] SOCIAL WORKER.HATCH TENDER Work Phone: Neurology Comment on above: 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 with status migrainosus (Primary Dx); 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 without status migrainosus Start: 04-13-2023 Telephone encounter Logan Barth APRN.CNP Work Phone: Neurology Comment on above: Appointment (Patient currently receiving infusions for headache. She is interested in learning about reboot program. 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 with status migrainosus Start: 04-12-2023 End: 04-12-2023 ambulatory SUZAN PAKCOM Facility:[facility] Start: 04-12-2023 End: 04-12-2023 ambulatory SUZAN NEISHA Facility:[facility] Start: 04-12-2023 End: 04-12-2023 Patient encounter procedure Suzan Driver APRN.HATCH TENDER Work Phone: Neurology Comment on above: Intractable [...] Telephone encounter Angely rousseau RN Work Phone: [facility] Home Delivery Comment on above: Insurance Authorizat ion (Aimovig 70MG/ML auto-injectors/) Start: 03-23-2023 End: 03-23-2023 ambulatory LOGAN BARTH Facility:[facility] Start: 03-22-2023 End: 03-22-2023 ambulatory SUZAN MELLISACOM Facility:[facility] Start: 03-21-2023 End: 03-21-2023 ambulatory SPENSER NADERER Not Available Start: 03-20-2023 End: 03-20-2023 ambulatory ZAY LEONARDO Not Available Start: 03-07-2023 End: 03-07-2023 ambulatory ZAY LEONARDO Not Available Start: 02-07-2023 End: 02-07-2023 ambulatory ZAY LEONARDO Not Available Start: 01-26-2023 End: 01-26-2023 ambulatory ZAY LEONARDO Not Available Start: 12-13-2022 Refill Logan Barth APR N.HATCH TENDER Work Phone: Neurology Headache [facility] Comment on above: Refill Request Infusion (HEADACHE I NFUSIONS) Start: 12-12-2022 End: 12-12-2022 ambulatory LOGAN BARTH Facility:[facility] Start: 12-09-2022 Refill Ольга Lantigua Brendan meléndez [employer] SOCIAL WORKER.HATCH TENDER Work Phone: Neurology Comment on above: Refill Request Start: 11-11-2022 End: 11-11-2022 ambulatory Infusion Main Chair 8 Work Phone: Neurology Comment on above: 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 with status migrainosus (Primary Dx) Start: 11-10-2022 End: 11-10-2022 ambulatory ОЛЬГА AGUILAR Facility:[facility] Start: 11-10-2022 End: 11-10-2022 ambulatory Ольга Aguilar [employer] SOCIAL WORKER.HATCH TENDER Work Phone: Neurology Comment on above: 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 with status migrainosus (Primary Dx) Nerve block Start: 11-10-2022 Telephone encounter Suzan dinero APRN.HATCH TENDER Work Phone: Neurology Comment on above: Infusion Start: 11-10-2022 End: 11-10-2022 Telemedicine consultation with patient Ольга Lantigua Harika [employer] SOCIAL WORKER.HATCH TENDER Work Phone: [facility] Start: 10-12-2022 End: 10-12-2022 ambulatory Suzan Driver APRN.HATCH TENDER Work Phone: Neurology Comment on above: Botox Start: 10-12-2022 E-mail encounter fro m caregiver Suzan Driver CR[employer]ICE SOCIAL WORKER.HATCH TENDER Work Phone: [facility] Start: 09-29-2022 Telephone encounter Angely rousseau RN Work Phone: [facility] Home Delivery Comment on above: Insurance Authorizat ion (Zomig 5MG nasal spray/) Start: 09-27-2022 ambulatory Logan Green APR N.HATCH TENDER Work Phone: [facility]ACHE [facility] Comment on above: My apt Monday Start: 09-16-2022 ambulatory Logan Barth APR N.HATCH TENDER Work Phone: [facility] Start: 09-16-2022 Patient encounter procedure Logan Barth [employer] SOCIAL WORKER.HATCH TENDER Work Phone: [facility]ACHE [facility] Comment on above: Appointment Start: 09-12-2022 End: 09-12-2022 ambulatory LOGAN BARTH Facility:[facility] Start: 08-31-2022 End: 08-31-2022 ambulatory LOGAN BARTH Facility:[facility] Start: 08-31-2022 End: 08-31-2022 ambulatory Logan Barth [employer] SOCIAL WORKER.HATCH TENDER Work Phone: Neurology Comment on above: Chronic migraine w/o aura, not intractable, w/o stat migr (Primary Dx) Start: 08-31-2022 End: 08-31-2022 Telemedicine consultation with patient Logan Barth APRN.HATCH TENDER Work Phone: [facility] Start: 08-09-2022 ambulatory Logan Barth APR N.HATCH TENDER Work Phone: [facility] Comment on above: Pain Start: 08-08-2022 End: 08-08-2022 ambulatory Jesse Borrego MD Work Phone: Neurology Comment on above: 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 with status migrainosus (Primary Dx) Start: 08-08-2022 End: 08-08-2022 Telemedicine consultation with patient Jesse Borrego MD Work Phone: [facility] Start: 08-07-2022 ambulatory Jesse rick MD Work Phone: Neurology Comment on above: Name of medication Start: 07-29-2022 End: 07-29-2022 ambulatory MARIA DEL ROSARIO HAHN Facility:[facility] Start: 07-28-2022 End: 07-28-2022 ambulatory MARIA DEL ROSARIO HAHN Facility:[facility] Start: 07-28-2022 End: 07-28-2022 ambulatory Infusion Main Chair 8 Work Phone: Neurology Comment on above: 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 with status migrainosus (Primary Dx) Start: 07-27-2022 End: 07-27-2022 ambulatory MARIA DEL ROSARIO HAHN Facility:[facility] Start: 07-21-[address] ZAY BLAS . Facili ty:[facility] Start: 07-14-2022 Encounter for other preprocedural examination DR ZAY BLAS . [facility] Start: 07-12-2022 End: 07-13-[address] ZAY BLAS . Facility:[facility] Start: 07-12-2022 End: 07-13-2022 Encounter for other preprocedural examination DR ZAY BLAS . Facility:[facility] Start: 07-05-2022 ambulatory MAYR-Gilson Nunn acility:[facility] Start: 06-27-2022 Telephone encounter Logan Barth APRN.CNP Work Phone: Neurology Comment on above: Appointment (infusio n) Start: 06-24-2022 End: 06-24-2022 ambulatory LOGAN BARTH Facility:[facility] Start: 06-20-2022 End: 06-20-2022 ambulatory MANJINDER [...] Facility:[facility] Start: 05-08-2022 End: 05-08-2022 ambulatory LUH LIBORIO Damon Facility:[facility] Start: 03-31-2022 End: 04-01-2022 ambulatory [...] with patient Nelly Saldaña PA-C Work Phone: [facility] Start: 11-09-2021 ambulatory Tyrone Dolan MD, PhD Work Phone: [facility] Start: 11-09-2021 Patient encounter procedure Tyrone Dolan MD, PhD Work Phone: Neurology Comment on above: Request Veido appoin tment Start: 11-08-2021 ambulatory Tyrone Dolan MD, PhD Work Phone: [facility] Start: 11-08-2021 Patient encounter procedure [...] Dolan MD, PhD Work Phone: [facility] Start: 10-26-2021 Patient encounter procedure Román Storey MD Work Phone: Neurology Comment on above: Seizure-like activit y (HCC) (Primary Dx) Start: 10-19-2021 End: 10-20-2021 Evaluation and management of inpatient LUCILA MOTA [facility] Start: 10-19-2021 End: 10-20-2021 Evaluation and management of inpatient Lucila Mota MD Work Phone: [address] Neuro ICU Start: 10-19-2021 End: 10-19-2021 ambulatory SHAIKH Joseph WALLS Facility:[facility] Start: 10-07-2021 End: 10-07-[address] ZAY BLAS . Facility:[facility] Start: 10-06-2021 End: 10-06-2021 ambulatory SUKHDEEP DOCKERY Facility:[facility] Start: 10-03-2021 End: 10-04-2021 ambulatory MANJINDER DEAL Facility:[facility] Start: 10-01-2021 End: 10-02-2021 Evaluation and management of inpatient DR ANGÉLICA ARTHUR Facility:[facility] Start: 10-01-2021 Encounter for preprocedural laboratory examination DR ZAY BLAS . [facility] Start: 09-29-2021 End: 09-30-[address] ZAY BLAS . Facility:[facility] Start: 09-29-2021 End: 09-30-2021 Encounter for preprocedural laboratory examination DR ZAY BLAS . Facility:[facility] Start: 09-21-2021 End: 09-22-[address] ANGÉLICA ARTHUR Facility:[facility] Start: 09-14-2021 End: 09-15-[address] ANGÉLICA ARTHUR Facility:[facility] Start: 08-14-2021 End: 08-14-2021 ambulatory BLUELIZZETTE GRACE Facility:[facility] Start: 08-14-2021 End: 08-14-2021 ambulatory BLUE LESLY Facility:[facility] Start: 12-24-2020 End: 12-24-2020 Emergency department patient visit ANGÉLICA ARTHUR [facility] Start: 12-24-2020 End: 12-24-2020 Emergency department patient visit Vielka Ching Work Phone: [facility] ED Comment on above: Migraine [...] 10-20-2021 EEG VIDEO MONITORING Marcy sommershira Chris [employer] SOCIAL WORKER - HATCH TENDER Work Phone: Start: 10-20-2021 BASIC METABOLIC PANE L W/ REFLEX TO MG FOR LOW K Puri Rikki Mota MD Work Phone: Start: 10-20-2021 Blood count complete auto&auto difrntl wbc Lo Perez [employer] SOCIAL WORKER - HATCH TENDER Work Phone: Start: 10-20-2021 IMMATURE PLATELET FRACTION Lo Perez [employer] SOCIAL WORKER - HATCH TENDER Work Phone: Start: 10-19-2021 Assay of lactate Uday Perez [employer]ICE SOCIAL WORKER - HATCH TENDER Work Phone: Start: 10-19-2021 Ecg routine ecg w/le ast 12 lds w/i&r Lo Perez [employer] SOCIAL WORKER - HATCH TENDER Work Phone: Start: 10-19-2021 Mri brain brain stem w/o w/contrast material Lo Perez [employer] SOCIAL WORKER - HATCH TENDER Work Phone: Start: 10-19-2021 RESPIRATORY CARE EVALUATION ONLY Lo Perez [employer]ICE SOCIAL WORKER - HATCH TENDER Work Phone: Start: 10-01-2021 Resection of Bilater [...] DTaP/Tdap/Td vaccine (7 - Td or Tdap) [facility] Start: 09-20-2025 Urine microalbumin profile [facility] Start: 02-20-2023 Depression Assessment Depression Ass [facility] Start: 10-29-2022 Adult depression screening assessment DEPRESSION SCREENING [facility] Start: 10-21-2022 Influenza vaccination C [facility] Start: 02-20-2022 DEPRESSION ASSESSMENT DEPRESSION ASS [facility] Start: 10-26-2021 End: 10-26-2022 SARS-CoV-2 (COVID-19) RNA [Presence] in Respiratory specimen by SAURABH with probe detection PRE-PROCEDURE & PRE-OPERATIVE COVID Microbiology Routine Seizure-like activity (HCC) Expected: 10/26/2021, Expires: 10/26/2022 [facility] Work Phone: Comment on above: Expected: 10/26/2021 , Expires: 10/26/2022 Start: 10-21-2021 Influenza vaccination B ON [facility] Start: 02-20-2021 DEPRESSION ASSESSMENT DEPRESSION ASS [facility] Start: 10-21-2020 Influenza vaccination Flu vaccine (# 1) [facility] Work Phone: Start: 11-13-2016 PAP TESTING PAP TESTING [facility] Start: 11-13-2016 Screening for malign ant neoplasm [facility] cervix [facility] Start: 11-13-2014 Urine microalbumin profile [facility] Start: 11-13-2013 Hepatitis C screening B ON [facility] Start: 11-13-2013 HEPATITIS C SCREENING HEPATITIS C NM KALE [facility] Start: 11-13-2013 HIV SCREENING HIV SCREENING [facility] Start: 11-13-2013 HIV screening HIV Screening [facility] Start: 2011 Screening for Chlamy rose trachomatis Chlamydia screen [facility] Start: 11-13-2010 HIV screening HIV screen [facility] Start: 11-13-2009 PEDS TO ADULT TRANSITION ANNUAL ASSESSMENT PEDS TO ADULT TRANSITION ANNUAL ASSESSMENT [facility] Start: 2007 Adult depression screening assessment DEPRESSION SCREENING [facility] Start: 2007 COVID-19 Vaccine (1) COVID-19 Vaccin e (1) [facility] Phone: Start: 2007 Depression Screen [facility] Start: 2007 PEDS TO ADULT TRANSITION INITIAL DISCUSSION PEDS TO ADULT TRANSITION INITIAL DISCUSSION [facility] Start: 11-13-2006 HPV VACCINE (1 - 2-d ose series) HPV VACCINE (1 - 2-dose series) [facility] Start: 11-13-2004 HPV VACCINE (1 - 2-d ose series) HPV VACCINE (1 - 2-dose series) [facility] Start: 05-13-1996 COVID-19 Vaccine (#1) COVID-19 Vacci ne (#1) [facility] Start: 1995 HEPATITIS B (1 of 3 - 3-dose series) HEPATITIS B (1 of 3 - 3-dose series) [facility] Start: 1995 Hepatitis B Vaccine (1 of 3 - 3-dose series) Hepatitis B Vaccine (1 of 3 - 3-dose series) [facility] Start: 1995 Hepatitis C screening Hepatitis C md radha [facility] [employer] Phone: End: 10-26-2021 Basic Metabolic Panel w/ Reflex to MG Basic Metabolic Panel w/ Reflex to MG Lab Routine Daily for 7 Days starting 10/20/2021 until 10/26/2021 [facility] Work Phone: Comment on above: Daily for 7 Days sta rting 10/20/2021 until 10/26/2021 End: 10-26-2021 CBC W Auto Differential panel - Blood CBC with Auto Differential Lab Routine Daily for 7 Days starting 10/20/2021 until 10/26/2021, 1 completed [employer] Phone: Comment on above: Daily for 7 Days sta rting 10/20/2021 until 10/26/2021, 1 completed EKG 12 Lead EKG 12 Lead ECG Routine 10/19/2021 5:55 PM EDT [employer] Phone: End: 10-29-2022 EPIL AMBULATORY EEG EPIL AMBULATORY EEG NEUROLOGY Routine Psychogenic nonepileptic seizure Spells of trembling 1 Occurrences starting 10/29/2021 until 10/29/2022 [facility] [employer] Work Phone: Comment on above: 1 Occurrences starti ng 10/29/2021 until 10/29/2022 End: 10-26-2022 EPIL EEG LEAD PLACEMENT EPIL EEG LEAD PLACEMENT NEUROLOGY Routine Seizure-like activity (HCC) 1 Occurrences starting 10/26/2021 until 10/26/2022 [employer] [employer] Work Phone: Comment on above: 1 Occurrences starti ng 10/26/2021 until 10/26/2022 End: 11-08-2022 EPIL EEG ROUTINE EPIL EEG ROUTINE NEUROLOGY Routine Seizure-like activity (HCC) 1 Occurrences starting 11/08/2021 until 11/08/2022 [facility] [employer] Work Phone: Comment on above: 1 Occurrences starti ng 11/08/2021 until 11/08/2022 EPIL VEEG ADMIT TO EMU/PMU EPIL VEEG ADMIT TO EMU/PMU NEUROLOGY Routine Seizure-like activity (HCC) Ordered: 10/26/2021 Rivera [facility] [employer] Work Phone: Comment on above: Ordered: 10/26/2021 Oxygen therapy [[facility] Data Set] Initiate Oxygen Therapy Protocol Respiratory Care Routine As Needed until discontinued starting 10/19/2021 [employer] [facility] Work Phone: Comment on above: As Needed [...] virus vacc ine, unspecified formulation Suzan Driver APRN.[facility] Work Phone: [facility] Payers Date Payer Category Payer Self-pay 2017 Medicaid [place] [employer] [employer] [id number] 2017-Present Medicaid [id number] 2013 Medicaid [id number] [id number] 2011 Unknown 1995 Unknown [id number] 2.16840.1.123531.3.579.2.173 1995 Unknown [id number] 2.16840.1.220047.3.579.2.175 1995 Unknown [id number] 2.840.1.392497.3.579.2.727 1995 Unknown [id number] 2.16.840.1.315091.3.579.2.593 1995 Unknown [id number] 2.16.840.1.966562.3.579.2.593 1995 Unknown [id number] 2.16.840.1.867924.3.579.2.593 1995 Unknown [id number] 2.16.840.1.184121.3.579.2.593 1995 Unknown [id number] 2.16.840.1.754950.3.579.2.593 1995 Unknown [id number] 2.16.840.1.819669.3.579.2.593 1995 Unknown [id number] 2.16.840.1.651083.3.579.2.593 1995 Unknown [id number] 2.16.840.1.960783.3.579.2.593 1995 Unknown [id number] 2.16.840.1.399272.3.579.2.593 1995 Unknown [id number] 2.16.840.1.775554.3.579.2.593 1995 Unknown [id number] 2.16.840.1.485517.3.579.2.593 1995 Unknown [id number] 2.16.840.1.820193.3.579.2.593 1995 Unknown [id number] 2.16.840.1.266667.3.579.2.593 1995 Unknown [id number] 2.16.840.1.410415.3.579.2.593 1995 Unknown [id number] 2.16.840.1.267233.3.579.2.593 1995 Unknown [id number] 2.16.840.1.651811.3.579.2.593 1995 Unknown [id number] 2.16.840.1.671504.3.579.2.593 1995 Unknown [id number] 2.16.840.1.199167.3.579.2.593 1995 Unknown [id number] 2.16.840.1.607178.3.579.2.593 1995 Unknown [id number] 2.16.840.1.919672.3.579.2.593 1995 Unknown [id number] 2.16.840.1.509357.3.579.2.593 1995 Unknown [id number] 2.16.840.1.685331.3.579.2.593 1995 Unknown [id number] 2.16.840.1.182609.3.579.2.1259 1995 Unknown [id number] 2.16.840.1.572457.3.579.2.9 1995 Unknown [id number] 2.16.840.1.999768.3.579.2.1259 1995 Unknown [id number] 2.16.840.1.183798.3.579.2.9 1995 Unknown [id number] 2.16.840.1.003688.3.579.2.9 1995 Unknown [id number] 2.16.840.1.800400.3.579.2.1259 1959 Unknown [id number] 1.2.840.161107.1.13.239.2.7.3.6 [id number] Social History Date Type Detail Facility Tobacco smoking stat [facility] Unknown if ever smoked [facility] Start: 1995 Sex Assigned At Not on file [facility] Start: 12-24-2020 End: 10-12-2022 Tobacco smoking status NHIS Never smoker [facility] Phone: Start: 12-24-2020 End: 10-12-2022 Tobacco use and exposure Never used [employer] Start: 12-24-2020 Alcohol intake Ex-drinker (finding) [facility] Phone: Start: 10-16-2021 End: 07-28-2022 Exposure to SARS-CoV-2 (event) Not sure [employer] Tobacco smoking stat [facility] Tobacco smoking consumption unknown [facility] Work Phone: Start: 06-23-2022 End: 08-08-2022 History of Social function [facility] Start: 06-23-2022 End: 08-08-2022 Patient Health Questionnaire 2 item (PHQ-2) [Reported] [facility] Adult Depression Screening Assessment 2 [facility] Clinical Notes 12-24-2020 to 04-14-2023 Patient InstructionsSuzan Driver APRN.HATCH TENDER - 04/14/2023 8:30 AM Inocencio Braun RN - 04/14/2023 8:19 AM Johana Jones RN - 04/13/2023 9:39 AM ESTPatient InstructionsAttachments Note Date & Type Note Facility 04-14-2023 Instructions Suzan Driver APRN.HATCH TENDER - 04/14/2023 10:49 AM EST Follow up/ [...] refilled without delays. documented in this encounter [facility] 04-14-2023 Note HNO ID: [id number] Author: SUZAN DRIVER APRN.FADY Service: ? 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 Short and care home memory, cognition and general fund of knowledge [...] which included preparing to see the patient, [id number] patient care, completing clinical documentation, obtaining and/or reviewing separately obtained history, performing a medically appropriate examination, counseling and educating the patient/family/caregiver, and ordering medications, tests, or procedures. Suzan Driver, UMANG.HATCH TENDER Headache Section [facility] 04-14-2023 Note HNO ID: [id number] Author: INOCENCIO NAIR RN Service: ? Author Type: Registered Nurse Type: Progress Notes Filed: 04/14/2023 11:51 Note Text: Pt in for 3rd day of infusion. Pt rated headache 6/10. Pt has severe nausea and moderate dizziness. Educated pt on medications to be administered. Pt agreed to proceed as ordered. 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 @0915: Patient tearful and c/o PIV site burning and very painful. No infiltration or redness of site noted, Ice-pack placed over PIV site. After a few minutes pt reported the ice-pack did not help and wanted PIV to be removed. PIV site removed. Patient remained very anxious and tearful, and requesting if anything else can be given for anxiety. [facility] ARCHITECT INTERN notified. New PIV site started, 2nd dose of Benadryl given for anxiety. 2nd line: Compazine given for severe nausea. Per [facility] ARCHITECT INTERN to hold Periactin today as the two doses of Benadryl and Compazine can cause drowsiness. Pts infusion complete, tolerated infusion. Headache 4/10. Pt stated no nausea and moderate dizziness. PIV site removed. Pt discharged from txt room at 1124 via wheelchair to ride in lobby. [facility] 04-14-2023 History of Presen t illness [...] infusions. 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 Short and terminal make up operator memory, cognition and general fund of [...] which included preparing to see the patient, zqct-[id number]-ptyk patient care, completing clinical documentation, obtaining and/or reviewing separately obtained history, performing a medically appropriate examination, counseling and educating the patient/family/caregiver, and ordering medications, tests, or procedures. Suzan Driver APRN.HATCH TENDER Headache Section [facility] documented in this encounter [facility] 04-14-2023 History of Presen t illness Narrative Pt in for 3rd day of infusion. Pt rated headache 6/10. Pt has severe nausea and moderate dizziness. Educated pt on medications to be administered. Pt agreed to proceed as ordered. 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 @0915: Patient tearful and c/o PIV site burning and very painful. No infiltration or redness of site noted, Ice-pack placed over PIV site. After a few minutes pt reported the ice-pack did not help and wanted PIV to be removed. PIV site removed. Patient remained very anxious and tearful, and requesting if anything else can be given for anxiety. [facility] ARCHITECT INTERN notified. New PIV site started, 2nd dose of Benadryl given for anxiety. 2nd line: Compazine given for severe nausea. Per [facility] ARCHITECT INTERN to hold Periactin today as the two doses of Benadryl and Compazine can cause drowsiness. Pts infusion complete, tolerated infusion. Headache 4/10. Pt stated no nausea and moderate dizziness. PIV site removed. Pt discharged from txt room at 1124 via wheelchair to ride in lobby. documented in this encounter [facility] 04-13-2023 Note HNO ID: [id number] Author: JOHANA CANCINO RN Service: ? Author [...] She is working with a psychiatrist in [place] . Voiced stress is her biggest trigger for headaches. 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 I mentioned to patient our reboot program . Patient very interested to learn about it. Message send to our market garden worker and Rhina Lim to set up patient for evaluation. 1020 Patient sleeping on and off. Nausea subsiding. Patient declined Zofran. Stated Zofran ineffective. 1050 Infusion complete. Patient slept on and off. Nausea resolved. PINEDA 6/10. Patient verbal , appears sedated . D/c via wheel chair to her in [facility]. [facility] 04-13-2023 History of Presen t illness [...] She is working with a psychiatrist in [place] . Voiced stress is her biggest trigger for headaches. 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 I mentioned to patient our reboot program . Patient very interested to learn about it. Message send to our market garden worker and Rhina Lim to set up patient for evaluation. 1020 Patient sleeping on and off. Nausea subsiding. Patient declined Zofran. Stated Zofran ineffective. 1050 Infusion complete. Patient slept on and off. Nausea resolved. PINEDA 6/10. Patient verbal , appears sedated . D/c via wheel chair to her in [facility]. documented in this encounter [facility] 04-13-2023 Miscellaneous Notes Patient is currently receiving infusions for headache. She is interested in learning about reboot program. Please schedule for evaluation. Johana Cancino RN documented in this encounter [facility] 04-12-2023 Note HNO ID: [id number] Author: SUZAN DRIVER APRN.HATCH TENDER Service: ? 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 Short and care home memory, cognition and general fund of knowledge [...] which included preparing to see the patient, rxdm-ie-wuym patient care, completing clinical documentation, obtaining and/or reviewing separately obtained history, performing a medically appropriate examination, counseling and educating the patient/family/caregiver, and ordering medications, tests, or procedures. Suzan Driver APRN.HATCH TENDER Headache Section [facility] 04-12-2023 Note HNO ID: [id number] Author: SUZAN JEFF RN Service: ? Author [...] vs oral periactin for sedation. Rhina Driver ARCHITECT INTERN updated and agreeable. PIV started on 3rd [...] dizziness. 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 Short and care home memory, cognition and general fund of knowledge [...] which included preparing to see the patient, izgr-ge-uqov patient care, completing clinical documentation, obtaining and/or reviewing separately obtained history, performing a medically appropriate examination, counseling and educating the patient/family/caregiver, and ordering medications, tests, or procedures. Suzan Driver APRN.FADY Headache Section [facility] documented in this encounter [facility] 04-12-2023 History of Presen t illness Narrative 1105 Patient in for first day of IV infusions. Patient rated headache 8/10. Patient stated severe nausea and mild dizziness. Patient educated on medications to be administered. Patient verbalized understanding and agreed to proceed with infusions. Patient requested the PRN IV Benadryl vs oral periactin for sedation. Rhina Driver ARCHITECT INTERN updated and agreeable. PIV started on 3rd [...] dizziness. 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 documented in this encounter [facility] 04-12-2023 Instructions Suzan Driver APRN.HATCH TENDER - 04/12/2023 11:52 AM EST General Headache [...] much light. These can be obtained at [employer]obubble[employer] or [employer]: see list below. 2. Limit use of acute treatments (rnzj-ixa-mmxpcsp medications, triptans, etc.) to no more than [...] and quiet environment. Relax and reduce stress. Jwugiqx5Xvfoi is a free andrzej that can instruct you on some simple relaxtion and breathing techniques. Http://[employer] is a free website that provides teaching [...] ensuing treatment plans will be released via [employer] and discussed during your follow-up appointment. Follow-up appointments are primarily provided by the Nurse Practitioners and Physician s Assistants in order to provide timely, accessible care. [employer]: Please ask the schedulers to give you an activation code. The main way of communication is by [employer] rather than phone lines, so if you have not signed up, please do so. [employer] is also the way that you can review your labs and testing. We are not able to contact everyone to tell them results are normal. If you do not hear back from us regarding testing you have had, it should be considered normal or within normal range. If you have any questions about the results, you are free to message us. [employer] is meant for simple questions regarding medications, possible side effects, or other simple straight forward questions in limited sentences, rather than multiple paragraphs of discussion. [employer] is not meant for, or efficient for these complex questions, extensive questions, extensive medication adjustments, complex new symptoms or concerns. These issues beyond simple questions require a follow up visit with myself, one of our physician assistants, nurse practitioners, or a Virtual Visit via computer or smart phone, as detailed further down. Please contact [employer] Support if you are having issues with [employer] or logging in to your virtual visit appointment. You can reach them at [phone] Refills: Please pay attention to when your [...] pepperoni, Pickled reynoso Pods of broad carmona (Czech beans, Upper Sorbian pea pods, Lithuanian (jc) beans, frazier and navy beans Ripe [...] convincingly provoke headaches. documented in this encounter [facility] 04-03-2023 Miscellaneous Notes Ambulatory Pharmacy Prior Authorization Note Provider Intervention Required?: No- Pharmacy completed on your behalf. Rx Plan: Medicaid [facility] ([facility]) Drug: Aimovig 70MG/ML auto-injectors Cover My Meds Chong: [id number] Determination: Approved Prior Authorization/Case #: n/a Prior [...] refills. Prescriptions will now be processed through [facility] for determination of next steps. For questions relating to this submission, please contact [facility] at [phone] [facility] received prescription(s) for Aimovig 70MG/ML auto-injectors . Benefits investigation was conducted, indicating that a prior authorization is required. PA was initiated and pending review through [employer]. All pertinent clinical information was submitted to insurance. [facility] Chong: [id number] Ordering Provider: Logan Barth APRN.HATCH TENDER Angely Cotton RN [facility] P: , F: documented in this encounter [facility] 03-23-2023 Note HNO ID: [id number] Author: LOGAN BARTH APRN.FADY Service: ? Author [...] visit. Either the patient or their legal event sales representative has been informed of the [...] XL, Qudexy) Anti-Depressant and Antipsychotic Amitriptyline (Elavil) Ambridge (Eskalith, Lithobid) Nortriptyline (Pamelor, Aventyl) Anti-Migraine Dihydroergotamine [...] ZOLMitriptan (ZOMIG) 5 mg nasal sprayUse 1 [place] in the nose as needed at onset [...] Rfl: lamoTRIgine (LAMICTAL) (more content not included)... [facility] 03-22-2023 Note HNO ID: [id number] Author: SUZAN DRIVER APRN.FADY Service: ? Author Type: Nurse Practitioner Type: Progress Notes Filed: 03/22/2023 16:40 Note Text: Headache Center - Virtual Visit Infusion Triage This visit was conducted as a virtual visit, with patient's permission, via Zoom. It required patient-provider interaction for the medical decision making as documented below. Patient stated name and Patient location [place] I have communicated my name and active licensure. The patient's identity and physical location were verified at the time of this visit. Either the patient or their legal event sales representative has been informed of the [...] XL, Qudexy) Anti-Depressant and Antipsychotic Amitriptyline (Elavil) Ambridge (Eskalith, Lithobid) Nortriptyline (Pamelor, Aventyl) Anti-Migraine Dihydroergotamine [...] ZOLMitriptan (ZOMIG) 5 mg nasal sprayUse 1 [place] in the nose as needed at onset [...] keTORolac (TORADOL) 1 (more content not included)... [facility] 12-13-2022 Miscellaneous Notes Images from the original note were not included. Called patient to schedule for 3 days of Non DHE IV infusions. She started she was currently driving and would call back to schedule Logan Barth APRN.HATCH TENDER P Headache Infusion Scheduling Pool; P C21 Botox Pool Pls schedule for infusions, and also her next botox treatment - thank you. KG documented in this encounter [facility] 12-13-2022 Miscellaneous Notes PA submitted through [employer] for Orphenadrine Citrate ER 100mg. Chong Code: [id number] documented in this encounter [facility] 12-12-2022 Note HNO ID: [id number] Author: Logan Barth APRN.FADY Service: ? Author [...] visit. Either the patient or their legal event sales representative has been informed of the [...] XL, Qudexy) Anti-Depressant and Antipsychotic Amitriptyline (Elavil) Ambridge (Eskalith, Lithobid) Nortriptyline (Pamelor, Aventyl) Anti-Migraine Dihydroergotamine [...] ZOLMitriptan (ZOMIG) 5 mg nasal sprayUse 1 [place] in the nose as needed at onset of migraine headache. If symptoms persist or return, may repeat dose in other nostril after 2 hours. Maximum of 2 sprays per 24 hoursDisp: 10 EachRfl: 2 lamoTRIgine (LAMICTAL) 150 mg tabletDisp: Rfl: diazePAM (VALIUM) 10 mg tabletDisp: Rfl: I have reviewed the Hea (more content not included)... [facility] 12-09-2022 Miscellaneous Notes Patient would also [...] Name: Emory Reilly documented in this encounter [facility] 11-11-2022 Note HNO ID: [id number] Author: Suzan Driver APRN.HATCH TENDER Service: ? Author Type: Nurse Practitioner Type: [...] d/c since symptoms have resolved. Suzan Driver APRN.HATCH TENDER [facility] 11-11-2022 History of Presen t illness [...] d/c since symptoms have resolved. Suzan Driver APRN.HATCH TENDER 0824: Patient in for first day of IV infusions. Patient rated headache 8/10. Patient stated severe nausea and severe dizziness. Patient educated on medications to be administered. Patient verbalized understanding and agreed to proceed with infusions. 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 She would like PRN benadryl for sedation. [...] with it. Message sent to Suzan Driver ARCHITECT INTERN to update. Benadryl hypersensitivity released and administered. Pt also very nauseated. PRN zofran administered. 1050: Pt fell back asleep. Woke pt up and she she stated relief from all itching. Denies any other symptoms/side effects at this time. Pts infusions complete. Pt rated headache 7/10. Pt stated mild nausea and denied dizziness. 1055: Suzan Driver ARCHITECT INTERN in txt room to see patient. 1105: [...] Driver NP notified. documented in this encounter [facility] 11-11-2022 Note HNO ID: [id number] Author: Coretta Quintanilla RN Service: ? Author Type: Registered Nurse Type: Progress Notes Filed: 11/11/2022 11:27 AM Note Text: 0824: Patient in for first day of IV infusions. Patient rated headache 8/10. Patient stated severe nausea and severe dizziness. Patient educated on medications to be administered. Patient verbalized understanding and agreed to proceed with infusions. 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 She would like PRN benadryl for sedation. [...] nausea and denied dizziness. 1055: Suzan Driver ARCHITECT INTERN in txt room to see patient. 1105: Pt discharged from treatment room via wheelchair due to drowsiness to her significant other. 1110: When cleaning chair after pt left, white pill found in chair. Tablet identified as baclofen. During initial assessment, after reviewing home medication list, pt denied any other medications missing from the list. Baclofen not listed on home medication list. Suzan Driver ARCHITECT INTERN notified. [facility] 11-10-2022 Note HNO ID: [id number] Author: Ольга Aguilar APRN.HATCH TENDER Service: ? Author Type: Nurse Practitioner Type: Progress Notes Filed: 11/10/2022 1:58 PM Note Text: Headache Center - Virtual Visit Infusion Triage This visit was conducted as a virtual visit, with patient's permission, via ZOOM. It required patient-provider interaction for the medical decision making as documented below. Patient stated name and Patient location [facility] I have communicated my name and active licensure. The patient's identity and physical location were verified at the time of this visit. Either the patient or their legal event sales representative has been informed of the [...] NS New health events/diagnosis since last visit ([place]/stroke/DM/HTN/etc): no Cardiovascular risk factors: none Past infusion [...] Lymph 1.00 - 4.00 k/uL 0.84 (L) [place]% % 0.7 Abs [place] <0.87 k/uL 0.06 Eosin% % 0.1 Abs [...] 2.7 TSH 0.270 - 4.200 mIU/L 0.537 Ambridge 0.6 - 1.2 mmol/L 0.1 (L) Analgesic Ketorolac (Toradol) Anti-Convulsant Lamotrigine (Lamictal) Topiramate (Topamax, Trokendi XL, Qudexy) Anti-Depressant and Antipsychotic Amitriptyline (Elavil) Ambridge (Eskalith, Lithobid) Nortriptyline (Pamelor, Aventyl) Anti-Migraine Dihydroergotamine [...] day as need (more content not included)... [facility] 11-10-2022 History of Presen t illness Narrative Images from the original note were not included. Headache Center - Virtual Visit Infusion Triage This visit was conducted as a virtual visit, with patient's permission, via ZOOM. It required patient-provider interaction for the medical decision making as documented below. Patient stated name and Patient location [facility] I have communicated my name and active licensure. The patient's identity and physical location were verified at the time of this visit. Either the patient or their legal event sales representative has been informed of the [...] NS New health events/diagnosis since last visit ([place]/stroke/DM/HTN/etc): no Cardiovascular risk factors: none Past infusion [...] Lymph 1.00 - 4.00 k/uL 0.84 (L) [place]% % 0.7 Abs [place] <0.87 k/uL 0.06 Eosin% % 0.1 Abs [...] 2.7 TSH 0.270 - 4.200 mIU/L 0.537 Ambridge 0.6 - 1.2 mmol/L 0.1 (L) Analgesic Ketorolac (Toradol) Anti-Convulsant Lamotrigine (Lamictal) Topiramate (Topamax, Trokendi XL, Qudexy) Anti-Depressant and Antipsychotic Amitriptyline (Elavil) Ambridge (Eskalith, Lithobid) Nortriptyline (Pamelor, Aventyl) Anti-Migraine Dihydroergotamine [...] ZOLMitriptan (ZOMIG) 5 mg nasal spray^Use 1 [place] in the nose as needed at onset [...] these with the patient: yes Ольга Aguilar APRN.HATCH TENDER HEADACHE SCORES: Headache Questions 06/24/2022 08/31/2022 09/12/2022 [...] rate, volume and articulation. Short and terminal make up operator memory, cognition and general fund of [...] 25 minutes Ольга Aguilar APRN.FADY Headache Section [facility] November 10, 2022 documented in this encounter [facility] 11-10-2022 Miscellaneous Notes PATIENT SCHEDULED [...] get infusions scheduled. Number to return call [phone] Okay to leave a message ? Yes Last office visit 10/12/22 with Neisha Next office visit Not scheduled. Thank you calling [facility] [place]. You will receive a return call within 48 hours ( or 2 business days if close to the weekend). If you feel that this is an urgent issue and needs immediate attention, it is recommended that you contact your primary care provider office or proceed to your nearest Urgent Care Center of Emergency Room ED for evaluation/treatment. documented in this encounter [facility] 10-12-2022 Note HNO ID: [id number] Author: Suzan Driver APRN.HATCH TENDER Service: ? Author Type: Nurse Practitioner Type: [...] procedure. Level of service: [facility] level 3 (20-29 min). Time spent 20 min on the day of service, which included preparing to see the patient, [id number] patient care, completing clinical documentation, obtaining and/or reviewing separately obtained history, performing a medically appropriate examination, counseling and educating the patient/family/caregiver, and ordering medications, tests, or procedures. Suzan Driver APRN.HATCH TENDER BOTOX PROCEDURE VISIT [place] Toxin A [...] for migraine Informed Consent Consent Obtained: Written [place] Protocol A moment to CARE was completed [...] visibility. No medicat (more content not included)... [facility] 10-12-2022 Note HNO ID: [id number] Author: Suzan Driver APRN.HATCH TENDER Service: ? Author Type: Nurse Practitioner Type: [...] for migraine Informed Consent Consent Obtained: Written [place] Protocol A moment to CARE was completed [...] (Sites) Right (Units) Right (Sites) TOTAL (Units) Application Support Manager 5 1 5 1 10 Procerus Units: [...] XL, Qudexy) Anti-Depressant and Antipsychotic Amitriptyline (Elavil) Ambridge (Eskalith, Lithobid) Nortriptyline (Pamelor, Aventyl) Anti-Migraine Naratriptan (Amerge) Sumatriptan (Imitrex, Sumavel) Zolmitriptan (Zomig) Blood Pressure Propranolol (Inderal) MABs Fremanezumab (Ajovy) Supplements Magnesium Suzan Driver APRN.HATCH TENDER Headache Section [facility] October 12, 2022 [facility] 10-06-2022 Miscellaneous Notes Ambulatory Pharmacy Prior Authorization Note Provider Intervention Required?: No- Pharmacy completed on your behalf. Rx Plan: Medicaid [facility] ([facility]) Drug: Zomig 5MG nasal spray Cover My Meds Chong: [id number] Determination: Approved Prior Authorization/Case #: n/a Prior [...] refills. Prescriptions will now be processed through [facility] for determination of next steps. For questions relating to this submission, please contact [facility] at [phone] [facility] received prescription(s) for Zomig 5MG nasal spray . Benefits investigation was conducted, indicating that a prior authorization is required. PA was initiated and pending review through [employer]. All pertinent clinical information was submitted to insurance. [facility] Chong: [id number] Ordering Provider: Logan Barth APRN.HATCH TENDER Angely Cotton RN [facility] P: , F: documented in this encounter [facility] 09-28-2022 Miscellaneous Notes Patient last seen on 09/12/22. documented in this encounter [facility] 09-12-2022 Note HNO ID: [id number] Author: Logan Barth APRN.FADY Service: ? Author Type: Nurse Practitioner Type: Progress Notes Filed: 09/12/2022 9:35 AM Note Text: Headache Center - Follow up Virtual Visit During this COVID-19 pandemic, patient's headache clinic evaluation was scheduled as a virtual visit using the following platform Zoom - patient currently located in [place] Coni Nicholson was identified by name [...] visit. Either the patient or their legal event sales representative has been informed of the [...] XL, Qudexy) Anti-Depressant and Antipsychotic Amitriptyline (Elavil) Ambridge (Eskalith, Lithobid) Nortriptyline (Pamelor, Aventyl) Anti-Migraine Naratriptan [...] (ZOMIG) 5 mg nasal spray Use 1 [place] in the nose as needed. SPRAY IN 1 NOSTRIL AT ONSET OF MIGRAINE HEADACHE. If symptoms persist or return, may repeat dose after 2 hours. Maximum: 5 mg/dose; 10 mg per 24 hours lamoTRIgine (LAMICTAL) 150 mg tablet diazePAM (VALIUM) 10 mg tablet I have reviewed the Health Status Assessment responses and discussed these with the patient: yes Logan Barth APRN.HATCH TENDER HEADACHE SCORES: Headache Questions 06/24/2022 08/31/2022 09/12/2022 ER visits since last office visit: 8 2 - Hospital stays since last office visit 2 0 - Limited ADLs in the last month: 15 15 - Days headache pain free in the last month: 10 15 - Days per month with ALL of the following symptoms - decreased productivity, light sensit (more content not included)... [facility] 08-31-2022 Note HNO ID: [id number] Author: Logan Barth APRN.FADY Service: ? Author Type: Nurse Practitioner Type: Progress Notes Filed: 08/31/2022 3:44 PM Note Text: Headache Center - Follow up Virtual Visit During this COVID-19 pandemic, patient's headache clinic evaluation was scheduled as a virtual visit using the following platform Zoom - patient currently located in [place] Coni Nicholson was identified by name and [...] visit. Either the patient or their legal event sales representative has been informed of the [...] She has been seeing one of the ARCHITECT INTERN's. It sounds like the plan is Emgality and Zomig nasal spray but it has been 2 months and she still hasn't heard about whether it has been approved. Has infusions which helped some. [place] keppra worked the best. Has an appt with ARCHITECT INTERN in a week. I will give ewara [...] XL, Qudexy) Anti-Depressant and Antipsychotic Amitriptyline (Elavil) Ambridge (Eskalith, Lithobid) Nortriptyline (Pamelor, Aventyl) Anti-Migraine Naratriptan [...] (ZOMIG) 5 mg nasal spray Use 1 [place] in the nose as needed. SPRAY IN [...] these with the patient: yes Logan Barth APRN.HATCH TENDER HEADACHE SCORES: H (more content not included)... [facility] 08-31-2022 History of Presen t illness Narrative Headache Center - Follow up Virtual Visit During this COVID-19 pandemic, patient's headache clinic evaluation was scheduled as a virtual visit using the following platform Zoom - patient currently located in [facility] was identified by name and [...] visit. Either the patient or their legal event sales representative has been informed of the [...] She has been seeing one of the ARCHITECT INTERN's. It sounds like the plan is Emgality and Zomig nasal spray but it has been 2 months and she still hasn't heard about whether it has been approved. Has infusions which helped some. [place] keppra worked the best. Has an appt with ARCHITECT INTERN in a week. I will give keppra [...] XL, Qudexy) Anti-Depressant and Antipsychotic Amitriptyline (Elavil) Ambridge (Eskalith, Lithobid) Nortriptyline (Pamelor, Aventyl) Anti-Migraine Naratriptan [...] (ZOMIG) 5 mg nasal spray Use 1 [place] in the nose as needed. SPRAY IN [...] these with the patient: yes Logan Barth APRN.HATCH TENDER HEADACHE SCORES: Headache Questions 06/24/2022 08/31/2022 ER [...] spontaneous and fluent without dysarthria. Short and care home memory, cognition and general fund of knowledge [...] XL, Qudexy) Anti-Depressant and Antipsychotic Amitriptyline (Elavil) Ambridge (Eskalith, Lithobid) Nortriptyline (Pamelor, Aventyl) Blood Pressure [...] Service: Virtual Visit 30 minutes Logan Barth APRN.HATCH TENDER Headache Section [facility] August 31, 2022 documented in this encounter [facility] 08-11-2022 Miscellaneous Notes Patient just completed 3 days of Infusions 07/27, 07/28, and 07/29. She is also scheduled for a follow up on 08/16. Would you like me to try to move her appt sooner? Patient last seen on 08/08/22. 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 Vida Vazquez RN August 10, 2022 10:01 AM documented in this encounter [facility] 08-08-2022 Note HNO ID: [id number] Author: Jesse Borrego MD Service: ? Author Type: Physician Type: Progress Notes Filed: 08/08/2022 3:22 PM Note Text: VV I have communicated my name and active licensure. The patient's identity and physical location were verified at the time of this visit. Either the patient or their legal event sales representative has been informed of the risks and benefits of -- and alternatives to -- treatment through a remote evaluation and consents to proceed with the evaluation remotely. Pt that I saw once 9 or so months ago. At the time, did not need preventative med. Since, the PINEDA's have worsened. She has been seeing one of the ARCHITECT INTERN's. It sounds like the plan is Emgality and Zomig nasal spray but it has been 2 months and she still hasn't heard about whether it has been approved. Has infusions which helped some. [place] keppra worked the best. Has an appt with ARCHITECT INTERN in a week. I will give keppra today until she can find out where emgality and zomig stand. Answered all questions. Jesse Borrego MD Time spent: 18 mins (10 mins direct pt contact) [facility] 08-08-2022 History of Presen t illness Narrative VV I have communicated my name and active licensure. The patient's identity and physical location were verified at the time of this visit. Either the patient or their legal event sales representative has been informed of the risks and benefits of -- and alternatives to -- treatment through a remote evaluation and consents to proceed with the evaluation remotely. Pt that I saw once 9 or so months ago. At the time, did not need preventative med. Since, the PINEDA's have worsened. She has been seeing one of the ARCHITECT INTERN's. It sounds like the plan is Emgality and Zomig nasal spray but it has been 2 months and she still hasn't heard about whether it has been approved. Has infusions which helped some. [place] keppra worked the best. Has an appt with ARCHITECT INTERN in a week. I will give keppra today until she can find out where emgality and zomig stand. Answered all questions. Jesse Borrego MD Time spent: 18 mins (10 mins direct pt contact) documented in this encounter [facility] 07-29-2022 Note HNO ID: [id number] Author: Leonie Whitaker RN Service: ? Author [...] benadryl for anxiety. 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 IV removed and patient discharged from infusion room to concrete pile driver operator [facility] 07-29-2022 Note HNO ID: [id number] Author: Eloina Knight APRN.CNP Service: ? Author [...] steps. Eloina Knight APRN.CNP July 29, 2022 [facility] 07-28-2022 Note HNO ID: [id number] Author: Leonie Whitaker RN Service: ? Author [...] to the infusion. 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 IV removed and patient discharged from infusion room [facility] 07-28-2022 History of Presen t illness Narrative Patient in for day 2 of infusion therapy. Patient rated headache pain 10 out of 10. Patient has severe nausea and moderate dizziness. Education was provided for the patient on medications and treatment plan for the day. The patient verbalized understanding and agreed to the infusion. 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 IV removed and patient discharged from infusion room documented in this encounter [facility] 07-27-2022 Note HNO ID: [id number] Author: Coretta Quintanilla RN Service: ? Author [...] requests different pre-medication anti-emetic. Misty West APRN. HATCH TENDER messaged and orders phenergan PO to be [...] to patient's allergy/intolerance list and provider notified. [facility] 07-27-2022 Note HNO ID: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 rules restrict any use of the information to criminally investigate or prosecute any alcohol or drug abuse patient.[facility] CenterIn the event this information is protected by the Federal Confidentiality of Alcohol and Drug Abuse Patient Records regulations: The Federal rules restrict any use of the information to criminally investigate or prosecute any alcohol or drug abuse patient.[facility] CenterIn the event this information is protected by the Federal Confidentiality of Alcohol and Drug Abuse Patient Records regulations: The Federal rules restrict any use of the information to criminally investigate or prosecute any alcohol or drug abuse patient.[facility] CenterIn the event this information is protected by the Federal Confidentiality of Alcohol and Drug Abuse Patient Records regulations: The Federal rules restrict any use of the information to criminally investigate or prosecute any alcohol or drug abuse patient.[facility] CenterIn the event this information is protected by the Federal Confidentiality of Alcohol and Drug Abuse Patient Records regulations: The Federal rules restrict any use of the information to criminally investigate or prosecute any alcohol or drug abuse patient.[facility] CenterIn the event this information is protected by the Federal Confidentiality of Alcohol and Drug Abuse Patient Records regulations: The Federal rules restrict any use of the information to criminally investigate or prosecute any alcohol or drug abuse patient.[facility] CenterIn the event this information is protected by the Federal Confidentiality of Alcohol and Drug Abuse Patient Records regulations: The Federal rules restrict any use of the information to criminally investigate or prosecute any alcohol or drug abuse patient.[facility] CenterIn the event this information is protected by the Federal Confidentiality of Alcohol and Drug Abuse Patient Records regulations: The Federal rules restrict any use of the information to criminally investigate or prosecute any alcohol or drug abuse patient.[facility] CenterIn the event this information is protected by the Federal Confidentiality of Alcohol and Drug Abuse Patient Records regulations: The Federal rules restrict any use of the information to criminally investigate or prosecute any alcohol or drug abuse patient.[facility] CenterIn the event this information is protected by the Federal Confidentiality of Alcohol and Drug Abuse Patient Records regulations: The Federal rules restrict any use of the information to criminally investigate or prosecute any alcohol or drug abuse patient.[facility] CenterIn the event this information is protected by the Federal Confidentiality of Alcohol and Drug Abuse Patient Records regulations: The Federal rules restrict any use of the information to criminally investigate or prosecute any alcohol or drug abuse patient.[facility] Reason for Visit (unrecogniz ed section and content) Reason Comments Headache Infusion Specialty Diagnoses / Procedures Referred By Contselena veloz Referred To Contact Neurology / HEADACHE Diagnoses NON-DHE #1 Procedures INFUSION HEADACHE Suzan Driver APRN.HATCH TENDER [address] [place] [address] Neur Headache Main [address] [place] [address] Referral ID Status Reason Start Date Expiration Date V isits Requested Visits Authorized [id number] Authorized 04/12/2023 02/20/2024 99 99 Reason Comments Future Appointment [place], [place], Any Reason Comments Migraine seen at [place] yest erday for Migrane and D & [...] Maria Del Rosario Hahn MD [address] [place] [address] Neur Headache Main [address] [place] [address] Referral ID Status Reason Start Date Expiration Date Visits Re quested Visits Authorized [id number] Closed 07/28/2022 09/26/2022 1 1 Reason Comments Chronic Migraine Reason Comments Chronic Migraine Reason Comments Insurance Authorization Zomig 5MG nasal spray Reason Comments Infusion Reason Comments Migraine Specialty Diagnoses / Procedures Referred By Contac t Referred To Contact Neurology / HEADACHE Diagnoses POSSIBLE DHE/WAITING FOR ORDERS Procedures INFUSION HEADACHE Self Neur Headache Main [address] [place] [id number] Referral ID Status Reason Start Date Expiration Date V isits Requested Visits Authorized [id number] Authorized 11/10/2022 02/08/2023 1 99 Reason Onset Date Comments Refill Request 12/09/2022 Reason Onset Date Comments Refill Request 12/13/2022 Reason Comments Infusion HEADACHE INFUSIONS Reason Comments Insurance Authorization Aimovig 70MG/ML auto-injectors Specialty Diagnoses / Procedures Referred By Contac t Referred To Contact Neurology / HEADACHE Diagnoses NON-DHE #1 Procedures INFUSION HEADACHE Suzan Driver, UMANG.HATCH TENDER [address] [place] [address] Neur Headache Main [address] [place] [phone] Reason Comments Appointment Patient currently re ceiving [...] Mon10/19/21 at 1445, Until Discontinued 1444 (Due) 0834 (Given - Provider: Clementine Cm [...] MRI 1707 (Given - Provider: Adrienne Stephens, PRATIBHA) sodium chloride flush 0.9 % injection 5-40 [...] and content) DATE CREATED AUTHOR 12/26/2020 Maggie vila DATE CREATED AUTHOR AUTHOR'S ORGANIZ ATION 10/25/2021 [facility] DATE CREATED AUTHOR AUTHOR'S ORGANIZ ATION 05/26/2022 [facility] DATE CREATED AUTHOR AUTHOR'S ORGANIZ ATION 08/02/2022 [facility] DATE CREATED AUTHOR AUTHOR'S ORGANIZ ATION 04/19/2023 [facility] DATE CREATED AUTHOR AUTHOR'S ORGANIZ ATION 06/19/2023 [facility] EPIC DATE CREATED AUTHOR AUTHOR'S ORGANIZ ATION 06/24/2023 [facility] Ordered Prescriptions (unrec ognized section and content) Prescription Sig Dispensed Refills Start Date End Da te lamoTRIgine (LAMICTAL) 25 MG tablet Take 2 tablets by mouth daily 30 tablet 3 10/21/2021 Care Teams (unrecognized sec tion and content) Director Corporate Sales Relationship Specialty Start Date End Date Angélica Arthur, CRIMINAL JUSTICE SOCIAL WORKER - HATCH TENDER [address] [place] [address] PCP - General Nurse Practitioner 12/24/20 Director Corporate Sales Relationship Specialty Start Date End Date HoMaria Del Rosario bean M (Historical) PCP - General 05/21/13 Director Corporate Sales Relationship Specialty Start Date End Date HoMaria Del Rosario bean M (Historical) PCP - General 05/21/13 Director Corporate Sales Relationship Specialty Start Date End Date HoyNoamMaria Del Rosario M (Historical) PCP - General 05/21/13 Director Corporate Sales Relationship Specialty Start Date End Date HoNoam beanlas M (Historical) PCP - General 05/21/13 Director Corporate Sales Relationship Specialty Start Date End Date HoyNoamMaria Del Rosario M (Historical) PCP - General 05/21/13 Director Corporate Sales Relationship Specialty Start Date End Date Hoy Maria Del Rosario M (Historical) PCP - General 05/21/13 Director Corporate Sales Relationship Specialty Start Date End Date Hoy Maria Del Rosario M (Historical) PCP - General 05/21/13 Director Corporate Sales Relationship Specialty Start Date End Date Hoy Maria Del Rosario M (Historical) PCP - General 05/21/13 Director Corporate Sales Relationship Specialty Start Date End Date Hoy Maria Del Rosario M (Historical) PCP - General 05/21/13 Director Corporate Sales Relationship Specialty Start Date End Date HoyNoamMaria Del Rosario M (Historical) PCP - General 05/21/13 Director Corporate Sales Relationship Specialty Start Date End Date HoyNoamMaria Del Rosario M (Historical) PCP - General 05/21/13 Director Corporate Sales Relationship Specialty Start Date End Date Hoy, Maria Del Rosario M (Historical) PCP - General 05/21/13 Director Corporate Sales Relationship Specialty Start Date End Date Hoy, Maria Del Rosario M (Historical) PCP - General 05/21/13 Director Corporate Sales Relationship Specialty Start Date End Date Hoy, Maria Del Rosario M (Historical) PCP - General 05/21/13 Director Corporate Sales Relationship Specialty Start Date End Date Hoy, Maria Del Rosario M (Historical) PCP - General 05/21/13 Director Corporate Sales Relationship Specialty Start Date End Date Hoy, Maria Del Rosario M (Historical) PCP - General 05/21/13 Director Corporate Sales Relationship Specialty Start Date End Date Hoy, Maria Del Rosario M (Historical) PCP - General 05/21/13 Director Corporate Sales Relationship Specialty Start Date End Date Hoy, Maria Del Rosario M (Historical) PCP - General 05/21/13 Director Corporate Sales Relationship Specialty Start Date End Date HoyNoamMaria Del Rosario M (Historical) PCP - General 05/21/13 Director Corporate Sales Relationship Specialty Start Date End Date HoyNoamMaria Del Rosario M (Historical) PCP - General 05/21/13 Director Corporate Sales Relationship Specialty Start Date End Date HoyNoamMaria Del Rosario M (Historical) PCP - General 05/21/13 Director Corporate Sales Relationship Specialty Start Date End Date HoyNoamMaria Del Rosario M (Historical) PCP - General 05/21/13 Director Corporate Sales Relationship Specialty Start Date End Date HoyNoamMaria Del Rosario M (Historical) PCP - General 05/21/13 Director Corporate Sales Relationship Specialty Start Date End Date HoNoam beanlas M (Historical) PCP - General 05/21/13 Director Corporate Sales Relationship Specialty Start Date End Date HoyNoamMaria Del Rosario M (Historical) PCP - General 05/21/13 Director Corporate Sales Relationship Specialty Start Date End Date Hoy, Maria Del Rosario M (Historical) PCP - General 05/21/13 Director Corporate Sales Relationship Specialty Start Date End Date Hoy, Maria Del Rosario M (Historical) PCP - General 05/21/13 Director Corporate Sales Relationship Specialty Start Date End Date Hoy, [...] 4 mg, ORAL, ONCE, 1 dose, On Mon04/13/23 at 0830 Given 04/13/2023 10:36 AM EST [...] over 1 Hours, ONCE, 1 dose, On Meg 04/13/23 at 0830 New Bag/Syringe/Bottle 04/13/2023 8:53 AM EST 1,000 mL 999 mL/hr promethazine 25 mg tab(s) (PHENERGAN) 25 mg, ORAL, EVERY 4 HOURS NEEDED, 2 doses, Starting on Meg 04/13/23 at 0819, Until Mon04/13/23 at 1315, Nausea/Vomiting [...] BE BASED ON THE PRIMARY CLINICAL RECORDS. [employer] provides no warranty or guarantee of the accuracy or completeness of information in this document.
== END 2023-06-26 08:29 | disposition home or self-care (01) ==
PROVIDERS: Emergency Provider Emergency Medicine; PCP Family Medicine
DX: G43.909 Migraine, unspecified, not intractable, without status migrainosus (principal); G40.909 Epilepsy, unspecified, not intractable, without status epilepticus; F31.9 Bipolar disorder, unspecified; E28.2 Polycystic ovarian syndrome; K21.9 Gastro-esophageal reflux disease without esophagitis; Z87.442 Personal history of urinary calculi; Z86.16 Personal history of COVID-19; Z87.01 Personal history of pneumonia (recurrent); J45.909 Unspecified asthma, uncomplicated; G89.4 Chronic pain syndrome; F41.9 Anxiety disorder, unspecified; Z79.899 Other long term (current) drug therapy; Z90.710 Acquired absence of both cervix and uterus; Z90.722 Acquired absence of ovaries, bilateral; Z90.79 Acquired absence of other genital organ(s); Z98.890 Other specified postprocedural states; Z90.49 Acquired absence of other specified parts of digestive tract
CPT/HCPCS: 96372; 99284; J2919

== ENCOUNTER 2023-08-01 10:23 | Emergency (ER) | payer OTHER, SELFPAY ==
[2023-08-01 10:26] VITALS: BP 122/74; PULSE 87; TEMP 36.2; O2SAT 96; BMI 51.0
--- NOTE | 2023-08-01 10:56 | ED_ITS ---
HPI HPI - General Adult General Chief complaint: Headache Stated complaint: HEADACHE Time Seen by Provider: 08/01/23 10:55 Source: patient Mode of arrival: walk-in Limitations: no limitations History of Present Illness HPI narrative: Patient is a 27-year-old female who is presenting to the ER with chief complaint of acute on chronic headache. Patient states she typically gets bilateral f rontal headache, sometimes more on the right than the left.Patient is appearing with very flat affect.Patient states Patient's headache was not the worse headache of her life, not sudden onset, not thunderclap in nature. Mild nausea no vomiting. No injury, no trauma.Patient recently had a CT of the brain 1 to 2 months ago.Patient comes to the ER multiple times for headache.Patient states there is nothing different with his headache to other headaches, able just not go away and has been present for 3 days. Patient states her headache is a 10/10. All systems are negative except as noted/marked. All systems reviewed and otherwise negative. Nurses note and vital signs reviewed and patient is not hypoxic. General: The patient appears well and in no apparent distress. Patient is resting comfortably on cart. Patient is not toxic, lethargic, or listless Skin: Warm, dry, no pallor noted. There is no rash noted. No petechiae, purpura.Multiple tattoos, no secondary signs of infection. Patient denies any type of insect bite, rash Head: Normocephalic, atraumatic; Mild tenderness to palpation to bilateral frontal sinuses, no tenderness to palpation to bilateral maxillary sinuses. Eye: Normal conjunctiva, no drainage, EOMI. PERRL Ears, Nose, Mouth, and Throat: oral mucosa is moist. Nares patent. Mouth without vesicles. Cardiovascular: Regular Rate and Rhythm, no murmur, gallop, rub Respiratory: Patient is in no distress, no accessory muscle use, lungs are clear to auscultation, no wheezing, rales or rhonchi Back: non-tender, no CVA tenderness bilaterally to percussion. No CT LS midline pain GI: Morbidly obese, no tenderness to palpation, no masses appreciated. No rebound, guarding, or rigidity noted. No distention Musculoskeletal: Patient has full range of motion of all of the extremities, no motor, sensory, or focal neurological deficits Neurological: A&O x4, normal speech Psychiatric: Cooperative Related Data Home Medications ?Medication ?Instructions ?Recorded ?Confirmed baclofen 10 mg tablet 10 mg PO TID spasms 07/20/22 05/12/23 diazepam 10 mg tablet 10 mg PO BID 07/20/22 05/12/23 epinephrine 0.3 mg/0.3 mL 0.3 mg IM Q10M PRN anaphylaxis 07/20/22 05/12/23 injection, auto-injector estradiol 0.5 mg tablet 0.5 mg PO QAM 01/06/23 05/12/23 diphenhydramine HCl 25 mg capsule 75 mg PO Q6H PRN migraine headache 01/26/23 05/12/23 (Benadryl) ibuprofen 800 mg tablet 800 mg PO Q8H PRN pain 01/26/23 05/12/23 lamotrigine 200 mg tablet 200 mg PO BID 01/26/23 05/12/23 orphenadrine citrate 100 mg 100 mg PO BID PRN migraine 01/26/23 05/12/23 tablet,extended release promethazine 25 mg tablet 12.5 mg PO Q6H PRN nausea and 01/26/23 05/12/23 vomiting albuterol sulfate 2.5 mg/3 mL 2.5 mg inhalation Q4H PRN 03/03/23 05/12/23 (0.083 %) solution for nebulization shortness of breath or wheezing ketorolac 10 mg tablet 10 mg PO Q6H PRN migraine headache 03/03/23 05/12/23 magnesium oxide 400 mg PO .qhs 03/03/23 05/12/23 trazodone 300 mg tablet 300 mg PO .qhs 03/03/23 05/12/23 erenumab-aooe 70 mg/mL 70 mg subcut ONCE PRN migraine 04/27/23 05/12/23 subcutaneous auto-injector headache (Aimovig Autoinjector) lithium carbonate 300 mg tablet 300 mg PO Q12H 04/27/23 05/12/23 Previous Rx's ?Medication ?Instructions ?Recorded ondansetron 4 mg disintegrating 4 mg PO Q6H PRN nausea and 02/26/23 tablet vomiting #20 tabs budesonide-formoterol HFA 160 2 inh inhalation Q12H #10.2 grams 03/04/23 mcg-4.5 mcg/actuation aerosol inhaler (Symbicort) tobramycin 0.3 %-dexamethasone 0.1 1 drp ophthalmic (eye) Q6H 7 days 05/12/23 % eye drops,suspension #5 mL ketorolac 10 mg tablet 10 mg PO Q8H PRN pain 2 days #6 05/13/23 tabs promethazine 25 mg tablet 25 mg PO Q6H PRN nausea and 05/13/23 vomiting 3 days #12 tabs tramadol 50 mg tablet 50 mg PO BID PRN pain 3 days #6 05/13/23 tabs Allergies Allergy/AdvReac Type Severity Reaction Status Date / Time dihydroergotamine Allergy Unknown Verified 05/29/23 19:27 vortioxetine Allergy Unknown Verified 05/29/23 19:27 buspirone Allergy Hives Verified 05/29/23 19:27 carbamazepine Allergy Unknown Verified 05/29/23 19:27 levetiracetam [From Keppra] Allergy ITCHING Verified 05/29/23 19:27 azithromycin [From Zithromax] AdvReac Intermediate Hives Verified 05/29/23 19:27 bee venom protein (honey bee) AdvReac Intermediate Hives Verified 05/29/23 19:27 metoclopramide [From Reglan] AdvReac Intermediate panic Verified 05/29/23 19:27 adhesive tape AdvReac Mild Rash Verified 05/29/23 19:27 cephalexin [From Keflex] AdvReac Mild Hives Verified 05/29/23 19:27 dextromethorphan AdvReac Mild Unknown Verified 05/29/23 19:27 [From [place] [facility]] pyrilamine [From [place] [facility]] AdvReac Mild Unknown Verified 05/29/23 19:27 propranolol AdvReac Hives Verified 05/29/23 19:27 Opioid HPI Opioid Management Most Recent Opioid Data: Last Pain Scale 10 08/01/23 11:14 Last MAR Pain Assessment 08/01/23 11:14 Last ORT Total Score 1 05/12/23 16:27 Last ORT Risk Category Low Risk 05/12/23 16:27 PFSH PFSH Medical History Chronic pain disorder ?G89.4 - Chronic pain syndrome (ICD-10) Conjunctivitis ?H10.9 - Unspecified conjunctivitis (ICD-10) Migraine ?G43.909 - Migraine, unspecified, not intractable, without status migrainosus (ICD-10) Viral upper respiratory tract infection with cough ?J06.9 - Acute upper respiratory infection, unspecified (ICD-10) Seizure disorder ?G40.909 - Epilepsy, unspecified, not intractable, without status epilepticus (ICD-10) Bipolar disorder ?F31.9 - Bipolar disorder, unspecified (ICD-10) Pelvic pain ?R10.2 - Pelvic and perineal pain (ICD-10) Headache ?R51.9 - Headache, unspecified (ICD-10) Bilateral occipital neuralgia ?M54.81 - Occipital neuralgia (ICD-10) Migraine ?G43.909 - Migraine, unspecified, not intractable, without status migrainosus (ICD-10) Post-op pain ?G89.18 - Other acute postprocedural pain (ICD-10) Combative behavior ?R46.89 - Other symptoms and signs involving appearance and behavior (ICD-10) Postoperative nausea and vomiting ?R11.2 - Nausea with vomiting, unspecified (ICD-10) ?Z98.890 - Other specified postprocedural states (ICD-10) Vaginal bleeding ?N93.9 - Abnormal uterine and vaginal bleeding, unspecified (ICD-10) Abscess of vagina ?N76.0 - Acute vaginitis (ICD-10) PCOS (polycystic ovarian syndrome) ?E28.2 - Polycystic ovarian syndrome (ICD-10) Mitral valve prolapse ?I34.1 - Nonrheumatic mitral (valve) prolapse (ICD-10) Vaginal delivery ?O80 - Encounter for full-term uncomplicated delivery (ICD-10) Nausea ?R11.0 - Nausea (ICD-10) GERD (gastroesophageal reflux disease) ?K21.9 - Gastro-esophageal reflux disease without esophagitis (ICD-10) Depression ?F32.A - Depression, unspecified (ICD-10) Blood in urine ?R31.9 - Hematuria, unspecified (ICD-10) Acne ?L70.9 - Acne, unspecified (ICD-10) Dyspareunia Brain mass ?G93.89 - Other specified disorders of brain (ICD-10) Pneumonia ?J18.9 - Pneumonia, unspecified organism (ICD-10) Kidney stones ?N20.0 - Calculus of kidney (ICD-10) COVID-19 ?U07.1 - COVID-19 (ICD-10) Bronchitis ?J40 - Bronchitis, not specified as acute or chronic (ICD-10) Asthma ?J45.909 - Unspecified asthma, uncomplicated (ICD-10) Stress incontinence ?N39.3 - Stress incontinence (female) (male) (ICD-10) Dysuria ?R30.0 - Dysuria (ICD-10) Seizure ?R56.9 - Unspecified convulsions (ICD-10) Neck pain ?M54.2 - Cervicalgia (ICD-10) Migraine ?G43.909 - Migraine, unspecified, not intractable, without status migrainosus (ICD-10) Low back pain ?M54.50 - Low back pain, unspecified (ICD-10) Head injury ?S09.90XA - Unspecified injury of head, initial encounter (ICD-10) Anxiety ?F41.9 - Anxiety disorder, unspecified (ICD-10) Surgical History H/O laparoscopy (07/21/22) ?Z98.890 - Other specified postprocedural states (ICD-10) S/P RAVI-BSO ?Z90.710 - Acquired absence of both cervix and uterus (ICD-10) ?Z90.722 - Acquired absence of ovaries, bilateral (ICD-10) ?Z90.79 - Acquired absence of other genital organ(s) (ICD-10) Hx laparoscopic cholecystectomy ?Z90.49 - Acquired absence of other specified parts of digestive tract (ICD- 10) H/O: ?Z98.891 - History of uterine scar from previous surgery (ICD-10) History of appendectomy ?Z90.49 - Acquired absence of other specified parts of digestive tract (ICD- 10) Family History Other Acid reflux Acute renal disease Afib Chromosomal disorder Delayed developmental milestones Diabetes Family history of hypertension High cholesterol Neuro-irritability due to autonomic dysfunction 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 level of school completed/degree received: high school graduate Gender Identity: female Exam Constitutional Vital Signs, click to edit/add: Last Vital Signs Temp 97.1 F L 08/01/23 10:26 Pulse 88 08/01/23 13:27 Resp 16 08/01/23 13:27 BP 122/86 08/01/23 13:27 Pulse Ox 99 08/01/23 13:27 Course Vital Signs Vital signs: Vital Signs Temperature 97.1 F L 08/01/23 10:26 Pulse Rate 87 08/01/23 10:26 Respiratory Rate 17 08/01/23 10:26 Blood Pressure 122/74 08/01/23 10:26 Pulse Oximetry 96 08/01/23 10:26 Temperature 97.1 F L 08/01/23 10:26 Pulse Rate 88 08/01/23 13:27 Respiratory Rate 16 08/01/23 13:27 Blood Pressure 122/86 08/01/23 13:27 Pulse Oximetry 99 08/01/23 13:27 Medical Decision Making MDM Narrative Medical decision making narrative: 1145 patient's headache has completely resolved. Patient would like to be discharged. Patient's headache is a 4/10, feels much better and is asking to go home. Patient thankful for help, will continue to follow-up with her PCP and neurologist. Discharge Plan Discharge Stand Alone Forms: Portal Instructions Chief Complaint: Headache Clinical Impression: Headache Patient Disposition: Home, Self-Care Time of Disposition Decision: 13:19 Condition: Fair Prescriptions / Home Meds: No Action baclofen 10 mg tablet 10 mg PO TID diazepam 10 mg tablet 10 mg PO BID epinephrine 0.3 mg/0.3 mL auto-injector 0.3 mg IM Q10M PRN (Reason: anaphylaxis) Rx Instructions: for 2 doses ondansetron 4 mg tablet,disintegrating 4 mg PO Q6H PRN (Reason: nausea and vomiting) Qty: 20 0RF albuterol sulfate 2.5 mg /3 mL (0.083 %) solution for nebulization 2.5 mg inhalation Q4H PRN (Reason: shortness of breath or wheezing) trazodone 300 mg tablet 300 mg PO .qhs magnesium oxide 400 mg magnesium tablet 400 mg PO .qhs ketorolac 10 mg tablet 10 mg PO Q6H PRN (Reason: migraine headache) budesonide-formoterol [Symbicort] 160-4.5 mcg/actuation HFA aerosol inhaler 2 inh inhalation Q12H Qty: 10.2 0RF Aimovig Autoinjector 70 mg/mL auto-injector 70 mg SUBCUT ONCE PRN (Reason: migraine headache) lithium carbonate 300 mg tablet 300 mg PO Q12H tobramycin-dexamethasone 0.3-0.1 % drops,suspension 1 drp ophthalmic (eye) Q6H 7 Days Qty: 5 0RF Rx Instructions: apply to both eyes promethazine 25 mg tablet 25 mg PO Q6H PRN (Reason: nausea and vomiting) 3 Days Qty: 12 0RF ketorolac 10 mg tablet 10 mg PO Q8H PRN (Reason: pain) 2 Days Qty: 6 0RF tramadol 50 mg tablet 50 mg PO BID PRN (Reason: pain) 3 Days Qty: 6 0RF Rx Instructions: ICD: G43.11 estradiol 0.5 mg tablet 0.5 mg PO QAM ibuprofen 800 mg tablet 800 mg PO Q8H PRN (Reason: pain) promethazine 25 mg tablet 12.5 mg PO Q6H PRN (Reason: nausea and vomiting) orphenadrine citrate 100 mg tablet extended release 100 mg PO BID PRN (Reason: migraine) lamotrigine 200 mg tablet 200 mg PO BID diphenhydramine HCl [Benadryl] 25 mg capsule 75 mg PO Q6H PRN (Reason: migraine headache) Print Language: Tajik Instructions: General Headache (ED) Additional Instructions: Continue to follow-up with your PCP, neurologist, and take your prescribed medications for headache. Referrals: Lamont Blair MD [Primary Care Provider] - 1 week Discharge Date/Time: 08/01/23 13:28
[2023-08-01] MEDS: DIPHENHYDRAMINE HCL 50 MG/ML VIAL 25 MG IV (11:14)
[2023-08-01] MEDS: DEXAMETHASONE SOD PHOS 10 MG/ML VIAL IV (11:14)
[2023-08-01] MEDS: 0.9 % SODIUM CHLORIDE 1,000 ML 1000 ML IV (11:14)
[2023-08-01] MEDS: KETOROLAC TROMETHAMINE 30 MG/ML VIAL 15 MG IVP (11:14)
[2023-08-01] MEDS: PROCHLORPERAZINE 10 MG/2 ML VIAL IV (11:14)
[2023-08-01 13:27] VITALS: BP 122/86; PULSE 88; O2SAT 99
== END 2023-08-01 13:28 | disposition home or self-care (01) ==
PROVIDERS: Emergency Provider Emergency Medicine; PCP Family Medicine
DX: R51.9 Headache, unspecified (principal); E66.01 Morbid (severe) obesity due to excess calories; Z68.43 Body mass index [BMI] 50.0-59.9, adult
CPT/HCPCS: 96374; 96375; 99284; J0780; J1100; J1200; J1885

== ENCOUNTER 2023-08-14 22:24 | Emergency (ER) | payer OTHER, SELFPAY ==
[2023-08-14 22:28] VITALS: BP 112/71; PULSE 100; TEMP 37.5; O2SAT 97; BMI 42.1
[2023-08-14 22:29] VITALS: BP 112/71
--- NOTE | 2023-08-14 22:32 | ECG_ITS ---
[facility] Test Date: 2023-08-14 Pat Name: MARGARET PLATT Department: Room: - Gender: Female [employer]: : 1995 Requested By: SPENSER SHAY Order Number: [id number] Reading MD: MILI GARCIA Measurements Intervals [place] Rate: 85 P: 53 RI: 140 QRS: 70 QRSD: 82 T: 48 QT: 378 QTc: 420 Interpretive Statements 1100 Sinus rhythm 9110 normal ECG Compared to ECG 12/20/2022 18:16:05 No significant changes Electronically Signed On 08-15-2023 6:45:51 EDT by MILI GARCIA
--- OUTSIDE RECORDS SUMMARY | 2023-08-14 22:46 | XMS_ITS ---
Patient Summarization (C-CDA 2.1 CCD) Created on: August 14, 2023 Sandie Nicholson : 1995 Sex: Female Author Organization Sample organization Care Team Providers Care Cloth Boil Off Machine Operator Name Role Phone Maria Del Rosario Hahn (Historical) Primary Care Provide r Unavailable Randells COMPUTER TECHNOLOGY INSTRUCTOR - MANAGER FARM, Angélica Santiago Primary Care Provider ANGÉLICA ARTHUR Primary Care Unavailable VIELKA CHING Attending Unavailable Randells COMPUTER TECHNOLOGY INSTRUCTOR - MANAGER FARM, Angélica Santiago Primary Care Provider [phone] LUCILA MOTA Attending Unavailable KINGS STEWART Referring Unavailable ANGÉLICA ARTHUR Primary Care [...] Admitting Unavailable PATRICIA WALSH Consulting Unavailable [facility], DR GMOEZ Primary Care Unavailable HAY ., DR HARMAN Attending Unavailable HAY ., DR HARMAN Admitting Unavailable NEWSTEWART, NICHOLAS Consulting Unavailable UNLU, SINDY Consulting Unavailable LEONARDO ., DR GUTIERREZ Admitting Unavailable LEONARDO ., DR GUTIERREZ Consulting Unavailable [facility] Primary Care Unavailable LEONARDO ., DR GUTIERREZ Attending Unavailable KUNS, DR ANGÉLICA Santiago Primary Care Unavailable LEONARDO ., DR GUTIERREZ Admitting Unavailable LEONARDO ., DR GUTIERREZ Attending Unavailable LEONARDO ., DR GUTIERREZ Consulting Unavailable LEONARDO ., DR GUTIERREZ Admitting Unavailable LEONARDO ., DR GUTIERREZ Attending Unavailable NADERER, DR SPENSER Garcia Primary Care Unavailable [facility] Primary Care Unavailable HAY ., DR HARMAN Consulting Unavailable HAY ., DR HARMAN Admitting Unavailable HAY ., DR HARMAN Attending Unavailable KONNICOLE KING Consulting Unavailable KUNKrupa, DR ANGÉLICA Santiago Primary Care Unavailable MARKER ., DR ONEAL Attending Unavailable MARKER ., DR ONEAL Consulting Unavailable MARKER ., DR ONEAL Admitting Unavailable SCHNECHRISTINE ROBIN Consulting Unavailable SAY, MANJINDER Attending Unavailable [...] ., DR GUTIERREZ Procedure Practitioner Unavail able KRYSTIN HERNADEZ Consulting Unavailable LUCIE, KLEBER Consulting Unavailable DORKOSKSHARDA MEI Consulting Unavailable ALECIA ., DENNIS Admitting Unavailable [...] NELI Consulting Unavailable ZAY BLAS Attending Unavailable ZAY BLAS Attending Unavailable LEONARDO, ZAY Attending Unavailable LEONARDO, ZAY Attending Unavailable NADSPENSER JENSEN Attending Unavailable LEONARDO, ZAY Attending Unavailable Maria Del Rosario Hahn (Historical) Primary Care Provide r Unavailable BIDDLECOM, SUZAN Attending Unavailable BIDDLECOM, SUZAN Referring Unavailable BIDDLECOM, SUZAN Attending Unavailable BIDDLECOM, SUZAN Referring Unavailable GREENLOGAN Attending Unavailable JESSE WHARTON Attending Unavailable GREENLOGAN Attending Unavailable GREENLOGAN Referring Unavailable BIDDLECOM, SUZAN Attending Unavailable ОЛЬГА AGUILAR Attending Unavailable GREENLOGAN Attending Unavailable MARIA DEL ROSARIO HAHN M Referring Unavailable MARIA DEL ROSARIO HAHN Referring Unavailable HOMARIA DEL ROSARIO Bean Referring Unavailable GREENLOGAN Attending Unavailable BIDDLECOM, SUZAN Attending Unavailable GREENLOGAN Attending Unavailable BIDDLECOM, SUZAN Referring Unavailable Ramsey Maloney Admitting Unavailab Ramsey Pakr Attending Unavailab le NON STAFF Primary Care Unavailable Allergies Allergy Classification Reported Allergen(s) Allergy Type Date of Onset Reaction(s) Facility Anti-Epileptic Agents (1 source) levETIRAcetam Drug Allergy 11-12-19 23 Itching [facility] Work Phone: Cephalosporins (antibiotic) (1 source) Cephalexin Drug Allergy 12-04-19 22 Rash [facility] Dextromethorphan / Pyrilamine (1 source) Dextromethorphan / Pyrilamine Drug Allergy 01-08-20 [facility] Work Phone: Dihydroergotamine (1 source) Dihydroergotamine Drug Allergy 07-28-19 Intolerance [facility] DOPamine Antagonists (1 source) Metoclopramide Drug Allergy 12-04-19 Intolerance [facility] Macrolides (antibiotic) (1 source) Azithromycin Drug Allergy 12-04-19 22 Other: See Comments [facility] vortioxetine (1 source) vortioxetine Drug Allergy 08-07-19 22 [facility] (20 sources) Azithromycin; Translations: [AZITHROMYCIN] Drug Allergy 12-25-19 21 Hives, Other: See Comments [facility] (2 sources) carBAMazepine Drug Allergy 12-25-19 Other (See Comments) [facility] (20 sources) Cephalexin; Translations: [CEPHALEXIN] Drug Allergy 12-25-19 21 Hives, Rash [facility] (20 sources) Metoclopramide; Translations: [METOCLOPRAMIDE] Drug Allergy 12-25-19 21 Hives, Intolerance [facility] (2 sources) Propranolol Drug Allergy 12-25-19 21 Hives, Other (See Comments) [facility] (20 sources) Adhesive Tape-Silicones; Translations: [ADHESIVE TAPE-SILICONES] Drug Allergy 12-04-19 [facility] (20 sources) Dextromethorphan / Pyrilamine; Translations: [PYRILAMINE-DEXTROME THORPHAN] Drug Allergy 01-08-20 [facility] Work Phone: (20 sources) vortioxetine; Translations: [VORTIOXETINE] Drug Allergy 08-07-19 [facility] Work Phone: (20 sources) Dihydroergotamine; Translations: [DIHYDROERGOTAMINE] Drug Allergy 07-28-19 23 Intolerance [facility] (1 source) Azithromycin Drug Allergy [facility] (1 source) bee venom Drug allergy (disorder) [facility] (1 source) Cephalexin Drug Allergy [facility] (1 source) Desonide Drug Allergy [facility] (1 source) Iothalamate Drug Allergy [facility] (1 source) Propranolol Drug Allergy 12-21-19 21 [facility] (1 source) [place] DM Drug allergy (disorder) 01-08-20 22 [facility] (16 sources) levETIRAcetam; Translations: [LEVETIRACETAM] Drug Allergy 11-12-19 23 Itching [facility] Work Phone: (2 sources) Valproate; Translations: [DIVALPROEX] Drug Allergy 03-22-19 24 Hives [facility] Work Phone: Encounters Encounter Date Encounter Type Care Provider Facility Start: 08-11-2023 ambulatory Ramsey Nunn acility:[facility] Start: 08-08-2023 ambulatory Logan Barth APR N.MANAGER FARM Work Phone: [facility] Comment on above: Injection Start: 07-10-2023 End: 07-10-2023 ambulatory LOGAN BARTH Facility:[facility] Start: 07-10-2023 End: 07-10-2023 ambulatory Logan Barth COMPUTER TECHNOLOGY INSTRUCTOR.MANAGER FARM Work Phone: Neu[facility] Comment on above: 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 without status migrainosus (Primary Dx) Start: 07-10-2023 End: 07-10-2023 Telemedicine consultation with patient Logan Barth COMPUTER TECHNOLOGY INSTRUCTOR.MANAGER FARM Work Phone: [facility] Start: 06-26-2023 ambulatory Ольга meléndez COMPUTER TECHNOLOGY INSTRUCTOR.MANAGER FARM Work Phone: Neurology Comment on above: Concern Headache Start: 06-19-2023 End: 06-19-2023 ambulatory ZAY BLAS Not Available Start: 04-14-2023 End: 04-14-2023 ambulatory SUZAN DRIVER Facility:[facility] Start: 04-14-2023 End: 04-14-2023 ambulatory Infusion Main Chair 7 Work Phone: Neurology Comment on above: Chronic migraine wit hout aura, with intractable migraine, so stated, with status migrainosus (Primary Dx); 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 with status migrainosus Start: 04-14-2023 End: 04-14-2023 Patient encounter procedure Suzan Driver APRN.CNP Work [...] Start: 04-13-2023 End: 04-13-2023 ambulatory SUZAN DRIVER Facility:[facility] Start: 04-13-2023 End: 04-13-2023 ambulatory Infusion Main Chair 7 Work Phone: Neurology Comment on above: Chronic migraine wit hout aura, with intractable migraine, so stated, with status migrainosus (Primary Dx); 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 with status migrainosus Start: 04-12-2023 End: 04-12-2023 ambulatory SUZAN DRIVER Facility:[facility] Start: 04-12-2023 End: 04-12-2023 ambulatory SUZAN DRIVER Facility:[facility] Start: 04-12-2023 End: 04-12-2023 Patient encounter [...] Telephone encounter Angely rousseau RN Work Phone: [facility] Comment on above: Insurance Authorizat ion (Aimovig 70MG/ML auto-injectors/) Start: 03-23-2023 End: 03-23-2023 ambulatory LOGAN BARTH Facility:[facility] Start: 03-22-2023 End: 03-22-2023 ambulatory SUZAN DRIVER Facility:[facility] Start: 03-21-2023 End: 03-21-2023 ambulatory SPENSER SHAY Not Available Start: 03-20-2023 End: 03-20-2023 ambulatory ZAY LEONARDO Not Available Start: 03-07-2023 End: 03-07-2023 ambulatory ZAY LEONARDO Not Available Start: 02-07-2023 End: 02-07-2023 ambulatory ZAY LEONARDO Not Available Start: 01-26-2023 End: 01-26-2023 ambulatory ZAY LEONARDO Not Available Start: 12-13-2022 Refill Logan Barth APR N.MANAGER FARM Work Phone: [facility] Comment on above: Refill Request Infusion (HEADACHE I NFUSIONS) Start: 12-12-2022 End: 12-12-2022 ambulatory LOGAN BARTH Facility:[facility] Start: 12-09-2022 Refill Ольга meléndez COMPUTER TECHNOLOGY INSTRUCTOR.MANAGER FARM Work Phone: Neurology Comment on above: Refill Request Start: 11-11-2022 End: 11-11-2022 ambulatory Infusion Main Chair 8 Work Phone: Neurology Comment on above: 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 with status migrainosus (Primary Dx) Start: 11-10-2022 End: 11-10-2022 ambulatory ОЛЬГА AGUILAR Facility:[facility] Start: 11-10-2022 End: 11-10-2022 ambulatory Ольга Aguilar COMPUTER TECHNOLOGY INSTRUCTOR.MANAGER FARM Work Phone: Neurology Comment on above: 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 with status migrainosus (Primary Dx) Nerve block Start: 11-10-2022 Telephone encounter Suzan dinero COMPUTER TECHNOLOGY INSTRUCTOR.MANAGER FARM Work Phone: Neurology Comment on above: Infusion Start: 11-10-2022 End: 11-10-2022 Telemedicine consultation with patient Ольга Aguilar UMANG.MANAGER FARM Work Phone: [facility] Start: 10-12-2022 End: 10-12-2022 ambulatory Suzan Driver COMPUTER TECHNOLOGY INSTRUCTOR.MANAGER FARM Work Phone: Neurology Comment on above: Botox Start: 10-12-2022 E-mail encounter fro m caregiver Suzan Puentegeo HECK.MANAGER FARM Work Phone: [facility] Start: 09-29-2022 Telephone encounter Angely rousseau RN Work Phone: [facility] Comment on above: Insurance Authorizat ion (Zomig 5MG nasal spray/) Start: 09-27-2022 ambulatory Logan Barth APR N.MANAGER FARM Work Phone: [facility] Comment on above: My apt Monday Start: 09-16-2022 ambulatory Logan Barth APR N.MANAGER FARM Work Phone: [facility] Start: 09-16-2022 Patient encounter procedure Logan Barth APRN.MANAGER FARM Work Phone: [facility] Comment on above: Appointment Start: 09-12-2022 End: 09-12-2022 ambulatory LOGAN BARTH Facility:[facility] Start: 08-31-2022 End: 08-31-2022 ambulatory LOGAN BARTH Facility:[facility] Start: 08-31-2022 End: 08-31-2022 ambulatory Logan Barth APRN.MANAGER FARM Work Phone: Neurology Comment on above: Chronic migraine w/o aura, not intractable, w/o stat migr (Primary Dx) Start: 08-31-2022 End: 08-31-2022 Telemedicine consultation with patient Logan Barth UMANG.MANAGER FARM Work Phone: [facility] Start: 08-09-2022 ambulatory Logan Barth APR N.MANAGER FARM Work Phone: [facility] Comment on above: Pain Start: 08-08-2022 End: 08-08-2022 ambulatory Jesse Wharton MD Work Phone: Neurology Comment on above: 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 with status migrainosus (Primary Dx) Start: 08-08-2022 End: 08-08-2022 Telemedicine consultation with patient Jesse Wharton Work Phone: [facility] Start: 08-07-2022 ambulatory Jesse rikc Work Phone: Neurology Comment on above: Name of medication Start: 07-29-2022 End: 07-29-2022 ambulatory MARIA DEL ROSARIO HAHN Facility:[facility] Start: 07-28-2022 End: 07-28-2022 [facility] Start: 07-28-2022 End: 07-28-2022 ambulatory Infusion Main Chair 8 Work Phone: Neurology Comment on above: 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 with status migrainosus (Primary Dx) Start: 07-27-2022 End: 07-27-2022 ambulatory MARIA DEL ROSARIO HAHN Facility:[facility] Start: 07-21-[address] ZAY BLAS . Facili ty:[facility] Start: 07-14-2022 Encounter for other preprocedural examination DR ZAY BLAS . [facility] Start: 07-12-2022 End: 07-13-[address] ZAY BLAS . Facility:[facility] Start: 07-12-2022 End: 07-13-2022 Encounter for other preprocedural examination DR ZAY BLAS . Facility:[facility] Start: 07-05-2022 ambulatory KRISTOFER Nunn acility:[facility] Start: 06-27-2022 Telephone encounter Logan Barth APRN.MANAGER FARM Work Phone: Neurology Comment on above: Appointment (infusio n) Start: 06-20-2022 End: 06-20-2022 ambulatory MANJINDER DEAL [...] 05-08-2022 ambulatory [facility] CAPONE . Facility:[facility] Start: 03-31-2022 End: 04-01-[address] [...] End: 11-10-2021 Telemedicine consultation with patient Nelly HERNANDEZ-C Work Phone: [facility] Start: 11-09-2021 ambulatory Tyrone Dolan MD, PhD Work Phone: [facility] Start: 11-09-2021 Patient encounter procedure Tyrone Dolan MD, PhD Work Phone: Neurology Comment on above: Request Veido appoin tment Start: 11-08-2021 ambulatory Tyrone Dolan MD, PhD Work Phone: [facility] Start: 11-08-2021 Patient encounter [...] patient Tyrone Dolan MD, PhD Work Phone: [facility] Start: 10-26-2021 Patient encounter procedure Román Storey MD Work Phone: Neurology Comment on above: Seizure-like activit y (HCC) (Primary Dx) Start: 10-19-2021 End: 10-20-2021 Evaluation and management of inpatient LUCILA MOTA [facility] Start: 10-19-2021 End: 10-20-2021 Evaluation and management of inpatient Lucila Mota MD Work Phone: [address] Neuro ICU Start: 10-19-2021 End: 10-19-2021 ambulatory SHAIKH Joseph WALLS Facility:[facility] Start: 10-07-2021 End: 10-07-[address] ZAY BLAS . Facility:[facility] Start: 10-06-2021 End: 10-06-2021 ambulatory SUKHDEEP DOCKERY Facility:[facility] Start: 10-03-2021 End: 10-04-2021 ambulatory MANJINDER DEAL Facility:[facility] Start: 10-01-2021 End: 10-02-2021 Evaluation and management of inpatient DR ANGÉLICA ARTHUR Facility:[facility] Start: 10-01-2021 Encounter for preprocedural laboratory examination DR ZAY BLAS . [facility] Start: 09-29-2021 End: 09-30-[address] ZAY BLAS . Facility:[facility] Start: 09-29-2021 End: 09-30-2021 Encounter for preprocedural laboratory examination DR ZAY BLAS . Facility:[facility] Start: 09-21-2021 End: 09-22-[address] ANGÉLICA ARTHUR Facility:[facility] Start: 09-14-2021 End: 09-15-[address] ANGÉLICA ARTHUR Facility:[facility] Start: 08-14-2021 End: 08-14-2021 ambulatory BLUE LESLY Facility:[facility] Start: 08-14-2021 End: 08-14-2021 ambulatory BLUE LESLY Facility:[facility] Start: 12-24-2020 End: 12-24-2020 Emergency department patient visit ANGÉLICA Pamela ARTHUR [facility] Start: 12-24-2020 End: 12-24-2020 Emergency department patient visit Vielka Ching DO Work Phone: [facility] ED Comment on above: Migraine without sta tus migrainosus, not intractable, unspecified migraine type (Primary Dx) Start: 02-18-2020 End: 02-18-2020 Telephone encounter Román Storey Work Phone: Neurology Comment on above: Future Appointment ( [place], [place], Any) Immunizations Immunization Date Immunization Notes Care Provider Preethi black 12-08-2017 influenza virus vacc ine, unspecified formulation Suzan Driver APRN.FADY Work Phone: [facility] Medications Current Medications Medication Drug Class(es) Dates Sig (Normalized) Sig (Original) Acetaminophen (2 sources) Start: 10-19-2021 acetaminophen (TYLENOL) tablet 1,000 mg Start: 10-19-2021 End: 10-19-2021 acetaminophen (TYLENOL) tabl et 650 mg onabotulinumtoxina 200 unt injection (18 sources) Acetylcholine Release Inhibitor Start: 10-12-2022 onabotulinum toxin type A 200 Units injection (BOTOX) chlorzoxazone 500 mg oral tablet (8 sources) Muscle Relaxant Start: 07-10-2023 take 1 tablet by mouth every twelve hours as needed chlorzoxazone (PARAFON FORTE DSC) 500 mg tablet Take 1 tablet by mouth two times a day as needed for muscle spasm (migraine). 20 tablet 5 07/10/2023 Active Start: 10-12-2022 End: 12-09-2022 take 1 tablet [...] immediately at onset of headache for rescue. diazePAM 10 mg oral tablet (20 sources) Benzodiazepine Start: 11-23-2021 diazePAM (VALIUM) 10 mg tablet take 1 tablet by sami th every six hours as needed for anxiety diazePAM (VALIUM) 5 MG tablet Take 5 mg by mouth every 6 hours as needed for Anxiety. 0 Suspended 1 ml erenumab-aooe 140 mg/ml auto-injector (13 sources) Start: 07-10-2023 inject 1 mL by subcutaneous injection every month erenumab-aooe (AIMOVIG AUTOINJECTOR) 140 mg/mL auto-injector Inject 1 mL subcutaneously once every month. Do not shake. 1 Each 07/10/2023 Active Start: 03-23-2023 End: 07-10-2023 inject 1 mL by subcutaneous injection every month erenumab-aooe (AIMOVIG AUTOINJECTOR) 70 mg/mL auto-injector Inject 1 mL subcutaneously once every month. Do not shake. 1 Each 07/10/2023 07/10/2023 Discontinued Comment on above: Inject 1 mL subcutan eously once every month. Do not shake. ketorolac tromethamine 10 mg oral tablet (20 sources) Nonsteroidal Anti-inflammatory Drug, Cyclooxygenase Inhibitor Start: End: take 1 tablet by mouth every six hours as needed keTORolac (TORADOL) 10 mg tablet Take 1 tablet by mouth every 6 hours as needed (severe migraine). 20 tablet 5 07/10/2023 Active Start: 05-08-2022 End: 12-09-2022 take 1 [...] 10-19-2021 lamoTRIgine (L AMICTAL) tablet 50 mg lidocaine 0.04 mg/mg medicated patch (1 source) Antiarrhythmic, Amide Local Anesthetic Start: 10-20-2021 lidocaine 4 % external patch 1 patch lithium carbonate 300 mg oral tablet (20 sources) Start: 06-13-2022 lithium carbonate 300 mg tablet loperamide hydrochloride 2 mg oral capsule (1 source) Opioid Agonist Start: 10-20-2021 loperamide (IMODIUM) capsule 2 mg lumateperone (CAPLYTA) 10.5 mg capsule (9 sources) take 1 capsule by mouth once daily lumateperone (CAPLYTA) 10.5 mg capsule Take 10.5 mg by mouth once daily. 0 Active Comment on above: Take 10.5 mg by mout h once daily. magnesium oxide 400 mg oral capsule (20 sources) Start: 07-10-2023 End: 07-10-2023 take 1 capsule by mouth once daily at bedtime magnesium oxide 400 mg magnesium cap Take 1 capsule by mouth daily at bedtime. 90 capsule 3 07/10/2023 Active Comment on above: magnesium 400 mg (as magnesium oxide) capsule methocarbamol 500 mg oral tablet (3 sources) [...] 10-19-2021 ondansetron (ZOFRAN-ODT) disintegrating tablet 4 mg phentermine hydrochloride 37.5 mg oral tablet (11 sources) Sympathomimetic Amine Anorectic Start: 03-21-2023 take 1 tablet by mouth once daily before mealtime Phentermine HCl 37.5 mg tablet take 1 tablet by mouth every morning before meals 0 03/21/2023 Active Comment on above: take 1 tablet by sami th every morning before meals promethazine hydrochloride 12.5 mg oral tablet (20 sources) Phenothiazine Start: 03-17-2023 take 1 tablet by mouth every six [...] sami th every 6 hours as needed. traZODone hydrochloride 100 mg oral tablet (20 sources) Serotonin Reuptake Inhibitor Start: 06-13-2022 traZODone (DESYREL) 100 mg tablet ZOLMitriptan 5 mg/actuat nasal spray (20 sources) Serotonin-1b and Serotonin-1d Receptor Agonist Start: 03-17-2023 End: 07-10-2023 ZOLMitriptan (ZOMIG) 5 mg nasal spray Use 1 [place] in the nose as needed at onset of migraine headache. If symptoms persist or return, may repeat dose in other nostril after 2 hours. Maximum of 2 sprays per 24 hours 10 Each 5 07/10/2023 Active Start: 06-24-2022 ZOLMitriptan ( ZOMIG) 5 mg nasal spray Use 1 [place] in the nose as needed at onset of migraine headache. If symptoms persist or return, may repeat dose in other nostril after 2 hours. Maximum of 2 sprays per 24 hours 10 Each 2 06/24/2022 Active Start: 06-24-2022 take 1 spray(s) nasa l route every twenty-four hours as needed ZOLMitriptan (ZOMIG) 5 mg nasal spray Use 1 [place] in the nose as needed. SPRAY IN 1 NOSTRIL AT ONSET OF MIGRAINE HEADACHE. If symptoms persist or return, may repeat dose after 2 hours. Maximum: 5 mg/dose; 10 mg per 24 hours 10 Each 2 06/24/2022 Active Comment on above: Use 1 [place] in the n ose as needed. SPRAY IN 1 NOSTRIL AT ONSET OF MIGRAINE HEADACHE. If symptoms persist or return, may repeat dose after 2 hours. Maximum: 5 mg/dose; 10 mg per 24 hours Use 1 [place] in the n ose as needed at onset of migraine headache. If symptoms persist or return, may repeat dose in other nostril after 2 hours. Maximum of 2 sprays per 24 hours Completed/Discontinued Medications Medication Drug Class(es) Dates Sig (Normalized) Sig (Original) baclofen 10 mg oral tablet (18 sources) gamma-Aminobutyric Acid-ergic Agonist Start: 11-22-2021 End: 07-10-2023 baclofen (LIORESAL) 10 mg tablet Comment on above: Take 10 mg by mouth three times a day as needed. cariprazine 4.5 mg oral capsule (4 sources) Atypical Antipsychotic cariprazine (VRAYLAR) 4.5 mg capsule Vraylar 4.5 mg capsule 0 Active Comment on above: Vraylar 4.5 mg capsu le cyclobenzaprine hydrochloride 10 mg oral tablet (2 sources) Muscle Relaxant End: 10-20-2021 take 1 tablet by mouth three times daily cyclobenzaprine (FLEXERIL) 10 MG tablet Take 10 mg by mouth 3 times daily 0 10/20/2021 Discontinued (Stop Taking at Discharge) 1 ml diphenhydrAMINE hydrochloride 50 mg/ml cartridge [...] every month. Do not shake. 1 Each 09/27/2022 11/10/2022 Discontinued (Course of therapy completed) [...] first month only. Refrigerate. Do not shake. levETIRAcetam 250 mg oral tablet (3 sources) Start: 08-09-19 levETIRAcetam (KEPPRA) 250 mg tablet Take 1 at bedtime. Can increase to bid after 2 weeks if needed 60 tablet 2 08/08/2022 Active Comment on above: Take 1 at bedtime. C an increase to bid after 2 weeks if needed LORazepam 2 mg oral tablet (2 sources) Benzodiazepine End: 10-21-19 take 1 tablet by mouth twice daily LORazepam (ATIVAN) 2 MG tablet Take 2 mg by mouth 2 times daily. 0 10/20/2021 Discontinued (Stop Taking at Discharge) 2 ml midazolam 1 mg/ml injection (1 source) Benzodiazepine Start: 10-20-19 End: 10-20-19 midazolam PF (VERSED) injection 1 mg naratriptan 2.5 mg oral tablet (4 sources) Serotonin-1b and Serotonin-1d Receptor Agonist Start: 12-04-19 take 1 tablet by mouth every four [...] injection (1 source) Serotonin-3 Receptor Antagonist Start: 12-25-19 End: 12-25-19 ondansetron (ZOFRAN) injection 4 mg 12 hr orphenadrine citrate 100 mg extended release oral tablet (12 sources) Muscle Relaxant Start: 03-17-19 End: 07-10-19 take 1 tablet by mouth every twelve hours as needed orphenadrine ER (NORFLEX) 100 mg tablet Take 1 tablet by mouth two times a day as needed. 30 tablet 5 03/17/2023 07/10/2023 Discontinued Start: 12-12-2022 take 1 tablet by sami every twelve hours as needed orphenadrine ER (NORFLEX) 100 mg tablet Take 1 tablet by mouth two times a day as needed. 30 tablet 5 12/12/2022 Active Comment on above: Take 1 tablet by sami two times a day as needed. polyethylene glycol [id number] [id number] mg powder for oral solution (1 source) Osmotic Laxative Start: 10-20-19 17 g, Oral, DAILY PRN, Starting on Mon10/19/21 at 1226, Until Discontinued, Constipation First line therapy for constipation 5 ml sodium chloride 9 mg/ml injection (6 sources) Start: 10-20-19 take 1 dose intravenously twice daily 5-40 [...] above: Take 100 mg by mouth . 24 hr venlafaxine 75 mg extended release [...] End: 04-12-2023 vilazodone (VIIBRYD) 20 mg tablet Payers Date Payer Category Payer Self-pay 2017 Medicaid [place] [id number] 2017-Present Medicaid [id number] 2013 Medicaid [id number] 1.13.159.2.7.3.6 [id number] 2011 Unknown 1995 Unknown [id number] 2.16.840.1.618139.3.579.2.173 1995 Unknown [id number] 2.16.840.1.628535.3.579.2.175 1995 Unknown [id number] 2.16.840.1.230389.3.579.2.727 1995 Unknown [id number] 2.16.840.1.027010.3.579.2.593 1995 Unknown [id number] 2.16.840.1.422137.3.579.2.593 1995 Unknown [id number] 2.16.840.1.033000.3.579.2.593 1995 Unknown [id number] 2.16.840.1.883985.3.579.2.593 1995 Unknown [id number] 2.16.840.1.666240.3.579.2.593 1995 Unknown [id number] 2.16.840.1.496067.3.579.2.593 1995 Unknown [id number] 2.16.840.1.641229.3.579.2.593 1995 Unknown [id number] 2.16.840.1.991701.3.579.2.593 1995 Unknown [id number] 2.16.840.1.694626.3.579.2.593 1995 Unknown [id number] 2.16.840.1.439899.3.579.2.593 1995 Unknown [id number] 2.16.840.1.559256.3.579.2.593 1995 Unknown [id number] 2.16.840.1.761025.3.579.2.593 1995 Unknown [id number] 2.16.840.1.550985.3.579.2.593 1995 Unknown [id number] 2.16.840.1.166911.3.579.2.593 1995 Unknown [id number] 2.16.840.1.022349.3.579.2.593 1995 Unknown [id number] 2.16.840.1.229938.3.579.2.593 1995 Unknown [id number] 2.16.840.1.226198.3.579.2.593 1995 Unknown [id number] 2.16.840.1.119092.3.579.2.593 1995 Unknown [id number] 2.16.840.1.089647.3.579.2.593 1995 Unknown [id number] 2.16.840.1.268574.3.579.2.593 1995 Unknown [id number] 2.16.840.1.580324.3.579.2.593 1995 Unknown [id number] 2.16.840.1.739564.3.579.2.593 1995 Unknown [id number] 2.16.840.1.327415.3.579.2.1259 1995 Unknown [id number] 2.16.840.1.214545.3.579.2.1259 1995 Unknown [id number] 2.16.840.1.285819.3.579.2.1259 1995 Unknown [id number] 2.16.840.1.372368.3.579.2.1259 1995 Unknown [id number] 2.16.840.1.156600.3.579.2.9 1995 Unknown [id number] 2.16.840.1.044107.3.579.2.1259 1959 Unknown [id number] 1.2.840.814924.1.13.239.2.7.3.6 [id number] Plan of Treatment Date Care Activity Detail Author Start: 09-20-2025 DTaP/Tdap/Td vaccine (7 - Td or Tdap) DTaP/Tdap/Td vaccine (7 - Td or Tdap) [facility] Start: 09-20-2025 Urine microalbumin profile [facility] Start: 10-22-2023 Influenza vaccination Influenz a Vaccine (Season Ended) [facility] Start: 02-20-2023 Depression Assessment Depression Ass essment [facility] Start: 10-29-2022 Adult depression screening assessment DEPRESSION SCREENING [facility] Start: 10-21-2022 Covid-19 Vaccine ( season) Covid-19 Vaccine ( season) [facility] Start: 10-21-2022 [facility] Start: 02-20-2022 DEPRESSION ASSESSMENT DEPRESSION ASS ESSMENT [facility] Start: 10-26-2021 End: 10-26-2022 SARS-CoV-2 (COVID-19) RNA [Presence] in Respiratory specimen by SAURABH with probe detection PRE-PROCEDURE & PRE-OPERATIVE COVID Microbiology Routine Seizure-like activity (HCC) Expected: 10/26/2021, Expires: 10/26/2022 [facility] [employer] Work Phone: Comment on above: Expected: 10/26/2021 , Expires: 10/26/2022 Start: 10-21-2021 Influenza vaccination B [facility] Start: 02-20-2021 DEPRESSION ASSESSMENT DEPRESSION ASS ESSMENT [facility] Start: 10-21-2020 Influenza vaccination Flu vaccine (# 1) [facility] Phone: Start: 11-13-2016 PAP TESTING PAP TESTING [facility] Start: 11-13-2016 Screening for malign ant neoplasm of cervix [facility] Start: 11-13-2014 Urine microalbumin profile [facility] Start: 11-13-2013 Hepatitis C screening B [facility] Start: 11-13-2013 HEPATITIS C SCREENING HEPATITIS C SC REENING [facility] Start: 11-13-2013 HIV SCREENING HIV SCREENING [facility] Start: 11-13-2013 HIV screening HIV Screening [facility] Start: 2011 Screening for Chlamy rose trachomatis Chlamydia screen [facility] Start: 11-13-2010 HIV screening HIV screen [facility] Start: 11-13-2009 PEDS TO ADULT TRANSITION ANNUAL ASSESSMENT PEDS TO ADULT TRANSITION ANNUAL ASSESSMENT [facility] Start: 2007 Adult depression screening assessment DEPRESSION SCREENING [facility] Start: 2007 COVID-19 Vaccine (1) COVID-19 Vaccin e (1) [employer] Phone: Start: 2007 Depression Screen Depression Screen [facility] Start: 2007 PEDS TO ADULT TRANSITION INITIAL DISCUSSION PEDS TO ADULT TRANSITION INITIAL DISCUSSION [facility] Start: 11-13-2006 HPV VACCINE (1 - 2-d ose series) HPV VACCINE (1 - 2-dose series) [facility] Start: 11-13-2004 HPV VACCINE (1 - 2-d ose series) HPV VACCINE (1 - 2-dose series) [facility] Start: 05-13-1996 COVID-19 Vaccine (#1) COVID-19 Vacci ne (#1) [employer] Start: 1995 HEPATITIS B (1 of 3 - 3-dose series) HEPATITIS B (1 of 3 - 3-dose series) [facility] Start: 1995 Hepatitis B Vaccine (1 of 3 - 3-dose series) Hepatitis B Vaccine (1 of 3 - 3-dose series) [facility] Start: 1995 Hepatitis C screening Hepatitis C [facility] [employer] Work Phone: End: 10-26-2021 Basic Metabolic Panel w/ Reflex to MG Basic Metabolic Panel w/ Reflex to MG Lab Routine Daily for 7 Days starting 10/20/2021 until 10/26/2021 [employer] Phone: Comment on above: Daily for 7 Days sta rting 10/20/2021 until 10/26/2021 End: 10-26-2021 CBC W Auto Differential panel - Blood CBC with Auto Differential Lab Routine Daily for 7 Days starting 10/20/2021 until 10/26/2021, 1 completed [employer] Phone: Comment on above: Daily for 7 Days sta rting 10/20/2021 until 10/26/2021, 1 completed EKG 12 Lead EKG 12 Lead ECG Routine 10/19/2021 5:55 PM EDT [employer] Phone: End: 10-29-2022 EPIL AMBULATORY EEG EPIL AMBULATORY EEG NEUROLOGY Routine Psychogenic nonepileptic seizure Spells of trembling 1 Occurrences starting 10/29/2021 until 10/29/2022 [facility] [employer] Work Phone: Comment on above: 1 Occurrences starti ng 10/29/2021 until 10/29/2022 End: 10-26-2022 EPIL EEG LEAD PLACEMENT EPIL EEG LEAD PLACEMENT NEUROLOGY Routine Seizure-like activity (HCC) 1 Occurrences starting 10/26/2021 until 10/26/2022 [facility] [employer] Work Phone: Comment on above: 1 Occurrences starti ng 10/26/2021 until 10/26/2022 End: 11-08-2022 EPIL EEG ROUTINE EPIL EEG ROUTINE NEUROLOGY Routine Seizure-like activity (HCC) 1 Occurrences starting 11/08/2021 until 11/08/2022 [facility] [employer] Work Phone: Comment on above: 1 Occurrences starti ng 11/08/2021 until 11/08/2022 EPIL VEEG ADMIT TO EMU/PMU EPIL VEEG ADMIT TO EMU/PMU NEUROLOGY Routine Seizure-like activity (HCC) Ordered: 10/26/[address] 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) drug therapy; Translations: [OTH LINE SERVICE PERSON CURRENT DRUG THERAPY] Onset: 06-22-2022 Episodic Other [...] [UTI SITE NOT SPECIFIED] Onset: 08-18-2021 Episodic Procedures Date Procedure Procedure Detail Performing Clinician Start: 10-29-2021 Adult depression scr eening assessment Tyrone Dolan MD, PhD Work Phone: Start: 10-20-2021 EEG VIDEO MONITORING Marcy Perez COMPUTER TECHNOLOGY INSTRUCTOR - [facility] Work Phone: Start: 10-20-2021 BASIC METABOLIC PANE L W/ REFLEX TO MG FOR LOW K Lucila Mota MD Work Phone: Start: 10-20-2021 Blood count complete auto&auto difrntl wbc Lo Perez COMPUTER TECHNOLOGY INSTRUCTOR - [facility] Work Phone: Start: 10-20-2021 IMMATURE PLATELET FRACTION Lo Perez COMPUTER TECHNOLOGY INSTRUCTOR - [facility] Work Phone: Start: 10-19-2021 Assay of lactate Uday radha Perez COMPUTER TECHNOLOGY INSTRUCTOR - [facility] Work Phone: Start: 10-19-2021 Ecg routine ecg w/le ast 12 lds w/i&r Lo Perez COMPUTER TECHNOLOGY INSTRUCTOR - [facility] Work Phone: Start: 10-19-2021 Mri brain brain stem w/o w/contrast material Lo Perez COMPUTER TECHNOLOGY INSTRUCTOR - [employer] Work Phone: Start: 10-19-2021 RESPIRATORY CARE EVALUATION ONLY Lo Perez COMPUTER TECHNOLOGY INSTRUCTOR - [employer] Work Phone: Start: 10-01-2021 Resection of Bilater al Fallopian Tubes, Open Approach CHAYITO NARVAEZ . Start: 10-01-2021 Resection of Uterus, Open Approach CHAYITO NARVAEZ . Start: 12-24-2020 Blood count complete auto&auto difrntl wbc Vielka Ching DO Work Phone: Start: 12-24-2020 Ct head/brain w/o co ntrast material Vielka Ching DO Work Phone: Results Test Name Value Interpretation Reference Range Facility [facility] 04-14-2023 CNOV Office Visit (NHMNS2) ---- CONI NICHOLSON ([id number]) 1995 F Date Time Provider Department 04/14/23 8:30 AM SUZAN DRIVER [facility] During your visit today, we recorded the following information about you: Suzan Driver APRN.CNP 04/14/2023 10:49 AM Signed [facility] ANDRZEJ Note Primary Problem List: ACTIVE PROBLEM LIST Seizure-Like Activity (Hcc) 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 Short and retirement memory, cognition and general fund of knowledge [...] which included preparing to see the patient, cyfk-uw-fafa patient care, completing clinical documentation, obtaining and/or reviewing separately obtained history, performing a medically appropriate examination, counseling and educating the patient/family/chronic care nurse, and ordering medications, tests, or procedures. Suzan Driver APRN.[facility] Headache Section [facility] Suzan Driver APRN.[facility] 04/14/2023 10:49 AM Signed Follow up/ discharge plan: f/u in 3 months Start aimovig this weekend Aimovig Information Aimovig is a CGRP monoclonal antibody (MAB). CGRP is a substance in the brain that plays a chong role in causing migraine. Aimovig was specifically developed t (more content not included)... Normal [facility] CNPNon 04-13-2023 [facility] ---- NICHOLSONCONI ROGERS ([id number]) 1995 F Date Time Provider Department 04/13/23 LOGAN BARTH NHMNS2 During your visit today, [...] (ZOMIG) 5 mg nasal spray Use 1 [place] in the nose as needed at onset [...] Encounter Status:Closed by JOHANA CANCINO [facility] (NHNDS2) ---- CONI NICHOLSON ([id number]) 1995 F Date Time Provider Department 04/12/23 1:30 PM SUZAN DRIVER [facility] During your visit today, we recorded the following information about you: Suzan Driver APRN.[employer] 04/12/2023 11:52 AM Signed General Headache Education [...] much light. These can be obtained at [employer] or [employer]: see list below. 2. Limit use of acute treatments (vzfu-ebe-ikjmglq medications, triptans, etc.) to no more than [...] and quiet environment. Relax and reduce stress. Qqbsxjm3Olhtv is a free andrzej that can instruct you on some simple relaxtion and breathing techniques. Http://[employer] is a free website that provides teaching [...] epilepsy i (more content not included)... Normal [facility] Veronica 03-27-2023 [facility]ASHIR Telephone ([facility]) ---- CONI [id number]) 1995 F Date Time Provider Department 03/27/23 ANGEYL COTTON [facility] During your visit today, we recorded the following information about you: Angely Cotton RN 03/27/2023 1:05 PM Signed [facility] received prescription(s) for Aimovig 70MG/ML auto-injectors . Benefits investigation was conducted, indicating that a prior authorization is required. PA was initiated and pending review through [employer]. All pertinent clinical information was submitted to insurance. CMM Chong: [id number] Ordering Provider: Logan Barth APRN.CNP Murtaugh, Alisha, RN [facility] P: , F: Angely Cotton RN 04/03/2023 12:43 PM Signed Ambulatory Pharmacy Prior Authorization Note Provider Intervention Required?: No- Pharmacy completed on your behalf. Rx Plan: Medicaid [facility] ([facility]) Drug: Aimovig 70MG/ML auto-injectors Cover My Meds Chong: [id number] Determination: Approved Prior Authorization/Case #: n/a Prior [...] refills. Prescriptions will now be processed through [facility] for determination of next steps. For questions relating to this submission, please contact [facility] at [phone] Allergies As of Date: 03/27/2023 Noted Allergy [...] Date Reviewed: 03/23/2023 Reviewed by: Logan Barth APRN.[employer] - Fully Assessed Reason for Visit: Insurance Authorization [[id number]] Cmt: Aimovig 70MG/ML auto-injectors Prescriptions as of 04/03/2023 - Phentermine HCl 37.5 mg tablet take 1 tablet by mouth every morning before meals - erenumab-aooe (AIMOVIG AUTOINJECTOR) 70 mg/mL auto-injector Inject 1 mL subcutaneously once every month. Do not shake. - ZOLMitriptan (ZOMIG) 5 mg nasal spray Use 1 [place] in the nose as needed at onset [...] Encounter Status:Closed by ANGELY COTTON on 04/03/23 [facility] Veronica 03-21-2023 CNPN Telephone (NIQ) ---- CONI NICHOLSON ([id number]) 1995 F Date Time Provider Department 03/21/23 LOGAN BARTH NIQ During your visit today, we recorded the [...] Date Reviewed: 12/12/2022 Reviewed by: Logan Barth APRN.MANAGER [employer]ARM - Fully Assessed Reason for Visit: Patient Request [[id number]] Cmt: Headache infusions Prescriptions as of 03/21/2023 - ZOLMitriptan (ZOMIG) 5 mg nasal spray Use 1 [place] in the nose as needed at onset [...] Encounter Status:Closed by MENDOZA DOOLEY on 03/21/23 [facility] 12-13-2022 [facility] Tele[facility] ([facility]) ---- CONI NICHOLSON ([id number]) 1995 F Date Time Provider Department 12/13/22 LOGAN BARTH [facility] During your visit today, we recorded the following information about you: Jannette Mcleod, PRATIBHA 12/13/2022 2:10 PM Signed Received approval for Orphenadrine Citrate ER. See attached approval. Scan on 12/13/2022 1:58 PM by Provider, External, PAClydeC: MARY Approval for Orphenadrine Citrate Allergies As [...] Date Reviewed: 12/12/2022 Reviewed by: Logan Barth APRN.MANA[employer] - Fully Assessed Prescriptions as of 12/13/2022 [...] (ZOMIG) 5 mg nasal spray Use 1 [place] in the nose as needed at onset [...] Status:Closed by JANNETTE MCLEOD on 12/13/22 [facility] BASHIR Telephone (NIQ) ---- BHARATCAROLINACONI L ([id number]) 1995 F Date Time Provider Department 12/13/22 LOGAN BARTH NIQ During your visit today, we recorded the following information about you: Mendoza Dooley 12/13/2022 2:27 PM Signed Called patient to schedule for 3 days of Non DHE IV infusions. She started she was currently driving and would call back to schedule Logan Barth APRN.MA[employer] P Headache Infusion Scheduling Pool; P C21 [...] Date Reviewed: 12/12/2022 Reviewed by: Logan Barth APRN.MANAGER [employer]ARM - Fully Assessed Reason for Visit: Infusion [...] (ZOMIG) 5 mg nasal spray Use 1 [place] in the nose as needed at onset [...] Encounter Status:Closed by MENDOZA DOOLEY on 12/13/22 [facility] 11-10-2022 [facility] Telephone (NIQ) ---- CONI NICHOLSON ([id number]) 1995 F Date Time Provider Department 11/10/22 SUZAN DRIVER During your visit today, we recorded the following information about you: Bonnie Howard 11/10/2022 8:29 AM Signed NI PHONE Name of caller : Sandie Relationship to patient : Self If not self Will need patient permission to release results or disclose health information with called documented in fyi. Was permission obtained from patient ? Yes Patient identified by Name and Date of . ( Coni Nicholson, 1995). Yes Reason for Call : Other Patient wants to get infusions scheduled. Number to return call [phone] Okay to leave a message ? Yes Last office visit 10/12/22 with [facility] Next office visit Not scheduled. Thank you calling [facility]. You will receive a return call within [...] Date Reviewed: 10/12/2022 Reviewed by: Suzan Driver APRN.MANAGER FARM - Fully Assessed Reason for Visit: Infusion [...] (ZOMIG) 5 mg nasal spray Use 1 [place] in the nose as needed at onset [...] by MENDOZA DOOLEY on 11/10/22 [facility] CNOVon 10-12-2022 CNOV Office Visit ([facility]) ---- CONI NICHOLSON ([id number]) 1995 F Date Time Provider Department 10/12/22 10:15 AM SUZAN DRIVER [facility] During your visit today, we recorded the following information about you: Pulse Blood pressure Weight Height 91/minute 133/63 108.8 kg 1.549 m Suzan Driver APRN.[employer] 10/12/2022 11:03 AM Addendum AFTER VISIT CARE [...] maximize the effectiveness of your pain relief. https://[email or web address]/health/ treatments/8312-bot ynduhu-ysxyf-xcpgws ions Download the Chronic Migraine Anatomy Andrzej (by Causes) to learn more about botox. -HYDRATION Hydration [...] see if you qualify for reimbursement. https://www.botoxsa [place] [employer].com/ Return in 3 months for your next [...] or operate machinery while taking this medication. [employer], Suzan, COMPUTER TECHNOLOGY INSTRUCTOR.MANAGER FARM 10/12/2022 11:04 AM Signed New Onabotulinum Toxin [...] Score (range: 0-100) 0 40 0 PHQ-9 06/24/202208/08/ (more content not included)... [facility] ---- CONI NICHOLSON ([id number]) 1995 F Date Time Provider Department 09/29/22 ANGELY COTTON [facility] During your visit today, we recorded the following information about you: Angely Cotton RN 09/29/2022 11:55 AM Signed [facility] received prescription(s) for Zomig 5MG nasal spray . Benefits investigation was conducted, indicating that a prior authorization is required. PA was initiated and pending review through [employer]. All pertinent clinical information was submitted to insurance. CMM Chong: [id number] Ordering Provider: Logan Barth APRN.Angely Schaefer RN [facility] P: , F: Angely Cotton RN 10/07/2022 3:17 PM Signed Ambulatory Pharmacy Prior Authorization Note Provider Intervention Required?: No- Pharmacy completed on your behalf. Rx Plan: Medicaid [facility] ([facility]) Drug: Zomig 5MG nasal spray Cover My Meds Chong: [id number] Determination: Approved Prior Authorization/Case #: n/a Prior [...] refills. Prescriptions will now be processed through [facility] for determination of next steps. For questions relating to this submission, please contact [facility] at [phone] Allergies As of Date: 09/29/2022 Noted Allergy [...] Date Reviewed: 09/12/2022 Reviewed by: Logan Barth APRN.MANAGER FARM - Fully Assessed Reason for Visit: Insurance Authorization [[id number]] Cmt: Zomig 5MG nasal spray Prescriptions as [...] (ZOMIG) 5 mg nasal spray Use 1 [place] in the nose as needed at onset [...] Encounter Status:Closed by ANGELY COTTON on 10/07/22 [facility] 09-13-2022 [facility] ---- CONI NICHOLSON ([id number]) 1995 F Date Time Provider Department 09/13/22 LOGAN BARTH [facility] During your visit today, we [...] Date Reviewed: 09/12/2022 Reviewed by: Logan Barth APRN.MANAGER FARM - Fully Assessed Reason for Visit: Referral [...] (ZOMIG) 5 mg nasal spray Use 1 [place] in the nose as needed. SPRAY IN [...] Encounter Status:Closed by ENEDINA TSAI on 09/13/22 Normal [facility] CNCOon 09-08-2022 CNCO Letter Text Normal [facility] BLOOD GASES BTYon 06-20-2022 02 MODE ROOM AIR Normal [facility] Comment on above: Performed By: #### B MP #### [facility] [address] [place] [address] Dr. Ibis Jimenez ALLENS TEST Positive Normal [facility] Comment on above: Performed By: #### B MP #### [facility] [address] [place] [address] Dr. Ibis Jimenez Base excess Calc (Bld) [Moles/Vol] -1.6000 mmol/L Normal -2.0-2.0 [facility] Comment on above: Performed By: #### B MP #### [facility] [address] [place] [address] Dr. Ibis Jimenez BIPAP PRESSURE Normal [facility] Comment on above: Performed By: #### B MP #### [facility] [address] [place] [address] Dr. Ibis Jimenez CPAP Normal [facility] Comment on above: Performed By: #### B MP #### [facility] [address] [place] [address] Dr. Ibis Jimenez FIO2 [facility] Comment on above: Performed By: #### B MP #### [facility] [address] [address] [address] Ibis Jimenez HCO3 (Bld) [Moles/Vol] 23.8 mmol/L Normal 22.0-26.0 [facility] Comment on above: Performed By: #### B MP #### [facility] [address] [place] [address] Dr. Ibis Jimenez LPM [facility] Comment on above: Performed By: #### B MP #### [facility] [address] [place] [address] Dr. Ibis Jimenez MINUTE VOLUME Normal [facility] Comment on above: Performed By: #### B MP #### [facility] [address] [place] [address] Dr. Ibis Jimenez Oxygen (Bld) [Partial pressure] 75.5 mm[Hg] Critically low 80.0-100.0 [facility] Comment on above: Performed By: #### B MP #### [facility] [address] [place] [address] Dr. Ibis Jimenez Oxygen saturation in Blood 95.8 % Normal 95.0-100.0 [facility] Comment on above: Performed By: #### B MP #### [facility] [address] [place] [address] Dr. Ibis Jimenez PCO2 41.8 mmHg Normal 35.0-45.0 [facility] Comment on above: Performed By: #### B MP #### [facility] [address] [place] [address] Dr. Ibis Jimenez PEEP [facility] Comment on above: Performed By: #### B MP #### [facility] [address] [place] [address] Dr. Ibis Jimenez pH (Bld) 7.363 [pH] Normal 7.350-7.450 [facility] Comment on above: Performed By: #### B MP #### [facility] [address] [place] [address] Dr. Ibis Jimenez PIP [facility] Comment on above: Performed By: #### B MP #### [facility] [address] [address] [address] Ibis Jimenez [facility] Comment on above: Performed By: #### B MP #### [facility] [address] [place] [address] Dr. Ibis Jimenez PUNCTURE SITE LR [facility] Comment on above: Performed By: #### B MP #### [facility] [address] [place] [address] Dr. Ibis Jimenez RATE [facility] Comment on above: Performed By: #### B MP #### [facility] [address] [place] [address] Dr. Ibis Jimenez VENT [facility] Comment on above: Performed By: #### B MP #### [facility] [address] [place] [address] Dr. Ibis Jimenez [facility] Comment on above: Performed By: #### B MP #### [facility] [address] [place] [address] Dr. Ibis Jimenez CBC AUTO DIFFon 06-20-2022 BASO # 0.0 103/ul Normal 0.0-0.1 [facility] Comment on above: Performed By: #### A CET, SALYC #### [facility] [address] [place] [address] Dr. Ibis Jimenez Basophils/100 WBC (Bld) 0.5 % Normal 0.2-2.0 [facility] Comment on above: Performed By: #### A CET, SALYC #### [facility] [address] [place] [address] Dr. Ibis Jimenez EO # 0.3 103/ul Normal 0.0-0.7 [facility] Comment on above: Performed By: #### A CET, SALYC #### [facility] [address] [place] [address] Dr. Ibis Jimenez Eosinophils/100 WBC (Bld) 4.2 % Normal 0.9-7.0 [facility] Comment on above: Performed By: #### A CET, SALYC #### [facility] [address] [place] [address] Dr. Ibis Jimenez Erythrocyte distribution width (RBC) [Ratio] 13.2 % Normal 11.0-15.0 [facility] Comment on above: Performed By: #### A CET, SALYC #### [facility] [address] [place] [address] Dr. Ibis Jimenez Hematocrit (Bld) [Volume fraction] 36.5 % Normal 36.0-48.0 [facility] Comment on above: Performed By: #### A CET, SALYC #### [facility] [address] [place] [address] Dr. Ibis Jimenez Hemoglobin (Bld) [Mass/Vol] 11.7 g/dL Critically low 12.0-16.0 [facility] Comment on above: Performed By: #### A CET, SALYC #### [facility] [address] [place] [address] Dr. Ibis Jimenez IG # 0.05 10e3/ul Critically high 0.00-0.03 [facility] Comment on above: Performed By: #### A CET, SALYC #### [facility] [address] [place] [address] Dr. Ibis Jimenez IG % 0.8 % Critically high 0.0-0.5 [facility] Comment on above: Performed By: #### A CET, SALYC #### [facility] [address] [place] [address] Dr. Ibis Jimenez LYMPH # 1.7 103/ul Normal 1.2-3.8 [facility] Comment on above: Performed By: #### A CET, SALYC #### [facility] [address] [place] [address] Dr. Ibis Jimenez Lymphocytes/100 WBC (Bld) 26.9 % Normal 20.5-60.0 [facility] Comment on above: Performed By: #### A CET, SALYC #### [facility] [address] [place] [address] Dr. Ibis Jimenez MANUAL DIFF REQ NO Normal [facility] Comment on above: Performed By: #### A CET, SALYC #### [facility] [address] [place] [address] Dr. Ibis Jimenez MCH (RBC) [Entitic mass] 28.7 pg Normal 26.7-34.0 [facility] Comment on above: Performed By: #### A CET, SALYC #### [facility] [address] [place] [address] Dr. Ibis Jimenez MCHC (RBC) [Mass/Vol] 32.1 g/dL Normal 29.9-35.2 [facility] Comment on above: Performed By: #### A CET, SALYC #### [facility] [address] [place] [address] Dr. Ibis Jimenez MCV (RBC) [Entitic vol] 89.7 fL Normal 81.0-99.0 [facility] Comment on above: Performed By: #### A CET, SALYC #### [facility] [address] [place] [address] Dr. Ibis Jimenez MONO # 0.6 103/ul Normal 0.3-0.8 [facility] Comment on above: Performed By: #### A CET, SALYC #### [facility] [address] [place] [address] Dr. Ibis Jimenez Monocytes/100 WBC (Bld) 8.9 % Normal 1.7-12.0 [facility] Comment on above: Performed By: #### A CET, SALYC #### [facility] [address] [place] [address] Dr. Ibis Jimenez NEUT # 3.8 103/ul Normal 1.4-6.5 [facility] Comment on above: Performed By: #### A CET, SALYC #### [facility] [address] [place] [address] Dr. Ibis Jimenez Neutrophils/100 WBC (Bld) 58.7 % Normal 43.0-75.0 [facility] Comment on above: Performed By: #### A CET, SALYC #### [facility] [address] [place] [address] Dr. Ibis Jimenez Platelet mean volume (Bld) [Entitic vol] 9.3 fL Critically low 9.5-13.5 [facility] Comment on above: Performed By: #### A CET, SALYC #### [facility] [address] [place] [address] Dr. Ibis Jimenez PLT 188 103/ul Normal 150-450 [facility] Comment on above: Performed By: #### A CET, SALYC #### [facility] [address] [place] [address] Dr. Ibis Jimenez RBC 4.07 106/ul Critically low 4.20-5.40 [facility] Comment on above: Performed By: #### A CET, SALYC #### [facility] [address] [place] [address] Dr. Ibis Jimenez WBC 6.4 103/ul Normal 4.0-11.0 [facility] Comment on above: Performed By: #### A CET, SALYC #### [facility] [address] [place] [address] Dr. Ibis Jimenez DRUG SCREEN RAPID (URINE)on 06-20-2022 AMP Negative Normal NEGATIVE [facility] Comment on above: Performed By: #### B MP #### [facility] [address] [place] [address] Dr. Ibis Jimenez BAR Positive Abnormal NEGATIVE [facility] Comment on above: Performed By: #### B MP #### [facility] [address] [place] [address] Dr. Ibis Jimenez BUP Negative Normal NEGATIVE [facility] Comment on above: Performed By: #### B MP #### [facility] [address] [place] [address] Dr. Ibis Jimenez BZO Positive Abnormal NEGATIVE [facility] Comment on above: Performed By: #### B MP #### [facility] [address] [place] [address] Dr. Ibis Jimenez SMEAJ Negative Normal NEGATIVE [facility] Comment on above: Performed By: #### B MP #### [facility] [address] [place] [address] Dr. Ibis Jimenez CUT-OFFS SEE BELOW Normal [facility] Comment on above: Result Comment: AMP (Amphetamine): 500ng/mL, BAR (Barbituates): 200 ng/mL, BZO (Benzodiazepines): 150 ng/mL, BUP (Buprenorphine): 10 ng/mL, SEMAJ (Cocaine): 150 ng/mL, mAMP (Methamphetamine): 500 ng/mL, MTD (Methadone): 200 ng/mL, OPI (Opiates): 100 ng/mL, OXY (Oxycodone): 100 ng/mL, PCP (Phencyclidine): 25 ng/mL, PPX (Propoxyphene): 300 ng/mL, THC (Cannabinoids): 50 ng/mL, TCA (Trycyclic Antidepressants): 300 ng/mL Performed By: #### B MP #### [facility] [address] [place] [address] Dr. Ibis Jimenez DRUG CUT HEADER DRUG CLASS TEST SYSTEM CUT-OFF CONCENTRATIONS ARE FOLLOWS: Normal [facility] Comment on above: Performed By: #### B MP #### [facility] [address] [place] [address] Dr. Ibis Jimenez mAMP Negative Normal NEGATIVE [facility] Comment on above: Performed By: #### B MP #### [facility] [address] [place] [address] Dr. Ibis Jimenez MTD Negative Normal NEGATIVE [facility] Comment on above: Performed By: #### B MP #### [facility] [address] [place] [address] Dr. Ibis Jimenez OPI Negative Normal NEGATIVE [facility] Comment on above: Performed By: #### B MP #### [facility] [address] [place] [address] Dr. Ibis Jimenez OXY Negative Normal NEGATIVE [facility] Comment on above: Performed By: #### B MP #### [facility] [address] [place] [address] Dr. Ibis Jimenez PCP Negative Normal NEGATIVE [facility] Comment on above: Performed By: #### B MP #### [facility] [address] [place] [address] Dr. Ibis Jimenez PPX Negative Normal NEGATIVE [facility] Comment on above: Performed By: #### B MP #### [facility] [address] [place] [address] Dr. Ibis Jimenez TCA Positive Abnormal NEGATIVE [facility] Comment on above: Performed By: #### B MP #### [facility] [address] [place] [address] Dr. Ibis Jimenez THC Positive Abnormal NEGATIVE [facility] Comment on above: Performed By: #### B MP #### [facility] [address] [place] [address] Dr. Ibis Jimenez ER URINE PROFILEon 3 Bilirubin Ql (U) Negative Normal NEGATIVE [facility] Comment on above: Performed By: #### A CET, SALYC #### [facility] [address] [place] [address] Dr. Ibis Jimenez Clarity (U) CLEAR Normal CLEAR [facility] Comment on above: Performed By: #### A CET, SALYC #### [facility] [address] [place] [address] Dr. Ibis Jimenez Color (U) YELLOW Normal YELLOW [facility] Comment on above: Performed By: #### A CET, SALYC #### [facility] [address] [place] [address] Dr. Ibis RODRIGUEZ A micrscopic examination will be performed if indicated. Normal [facility] Comment on above: Performed By: #### A CET, SALYC #### [facility] [address] [place] [address] Dr. Ibis Jimenez Glucose Ql (U) Negative Normal NEGATIVE [facility] Comment on above: Performed By: #### A CET, SALYC #### [facility] [address] [place] [address] Dr. Ibis Jimenez Hemoglobin Ql (U) Negative Normal NEGATIVE [facility] Comment on above: Performed By: #### A CET, SALYC #### [facility] [address] [place] [address] Dr. Ibis Jimenez Ketones Ql (U) Negative Normal NEGATIVE [facility] Comment on above: Performed By: #### A CET, SALYC #### [facility] [address] [place] [address] Dr. Ibis Jimenez LEUKOCYTES Negative Normal NEGATIVE [facility] Comment on above: Performed By: #### A CET, SALYC #### [facility] [address] [place] [address] Dr. Ibis Jimenez Nitrite Ql (U) Negative Normal NEGATIVE [facility] Comment on above: Performed By: #### A CET, SALYC #### [facility] [address] [place] [address] Dr. Ibis Jimenez pH (U) 5.0 [pH] Normal 5-9 [facility] Comment on above: Performed By: #### A CET, SALYC #### [facility] [address] [place] [address] Dr. Ibis Jimenez SPEC GRAVITY >=1.030 Abnormal 1.005-<=1.02 5 [facility] Comment on above: Performed By: #### A CET, SALYC #### [facility] [address] [place] [address] Dr. Ibis Jimenez UA PROTEIN Negative Normal NEGATIVE/ TRACE [facility] Comment on above: Performed By: #### A CET, SALYC #### [facility] [address] [place] [address] Dr. Ibis Jimenez UR MICRO IND NOT INDICATED Normal [facility] Comment on above: Performed By: #### A CET, SALYC #### [facility] [address] [place] [address] Dr. Ibis Jimenez Urobilinogen Qn (U) 0.2 {Dinorah'U}/dL Normal 0.2 - 1. 0 [facility] Comment on above: Performed By: #### A CET, SALYC #### [facility] [address] [place] [address] Dr. Ibis Jimenez PROF CHEM 8 (BAS METB)on Anion gap [Moles/Vol] 13.1 mmol/L Normal [facility] Comment on above: Performed By: #### M DAVID #### [facility] [address] [address] [address] Ibis Jimenez Calcium [Mass/Vol] 8.3 mg/dL Critically low 8.5-10.1 [facility] Comment on above: Performed By: #### M DAVID #### [facility] [address] [address] [address] Ibis Jimenez Chloride [Moles/Vol] 109 mmol/L Critically high 98-107 [facility] Comment on above: Performed By: #### M DAVID #### [facility] [address] [address] [address] Ibis Jimenez CO2 [Moles/Vol] 25.7 mmol/L Normal 21.0-32.0 [facility] Comment on above: Performed By: #### M DAVID #### [facility] [address] [address] [address] Ibis Jimenez Creatinine [Mass/Vol] 0.82 mg/dL Normal 0.55-1.02 [facility] Comment on above: Performed By: #### M DAVID #### [facility] [address] [address] [address] Ibis Jimenez EGFR-AF BURMESE >60 Normal >=60 [facility] Comment on above: Performed By: #### M DAVID #### [facility] [address] [address] [address] Ibis Jimenez EGFR-NON AF BURMESE >60 Normal >=60 [facility] Comment on above: Performed By: #### M DAVID #### [facility] [address] [address] [address] Ibis Jimenez Glucose [Mass/Vol] 95 mg/dL Normal 74-106 [facility] Comment on above: Performed By: #### M DAVID #### [facility] [address] [address] [address] Ibis Jimenez Potassium [Moles/Vol] 3.8 mmol/L Normal 3.5-5.1 [facility] Comment on above: Performed By: #### M DAVID #### [facility] [address] [address] [address] Ibis Jimenez Sodium [Moles/Vol] 144 mmol/L Normal 136-145 [facility] Comment on above: Performed By: #### M DAVID #### [facility] [address] [place] [address] Dr. Ibis Jimenez Urea nitrogen [Mass/Vol] 16.0 mg/dL Normal 7.0-18.0 [facility] Comment on above: Performed By: #### M DAVID #### [facility] [address] [place] [address] Dr. Ibis Jimenez Urea nitrogen/Creatinine [Mass ratio] 19.5 mg/mg Normal [facility] Comment on above: Performed By: #### M DAVID #### [facility] [address] [place] [address] Dr. Ibis Jimenez ACETAMINOPHENon 06-19-2022 Acetaminophen [Mass/Vol] ug/mL Critically low 10.0-30.0 [facility] Comment on above: Performed By: #### A KORI DAVIS #### [facility] [address] [place] [address] Dr. Ibis Jimenez DRUG SCREEN RAPID (URINE)on 06-19-2022 AMP Negative Normal NEGATIVE [facility] Comment on above: Performed By: #### M DAVID #### [facility] [address] [place] [address] Dr. Ibis Jimenez BAR Positive Abnormal NEGATIVE [facility] Comment on above: Performed By: #### M DAVID #### [facility] [address] [place] [address] Dr. Ibis Jimenez BUP Negative Normal NEGATIVE [facility] Comment on above: Performed By: #### M DAVID #### [facility] [address] [place] [address] Dr. Ibis Jimenez BZO Positive Abnormal NEGATIVE [facility] Comment on above: Performed By: #### M DAVID #### [facility] [address] [place] [address] Dr. Ibis Jimenez SEMAJ Negative Normal NEGATIVE [facility] Comment on above: Performed By: #### M DAVID #### [facility] [address] [place] [address] Dr. Ibis Jimenez CUT-OFFS SEE BELOW Normal [facility] Comment on above: Result Comment: AMP (Amphetamine): 500ng/mL, BAR (Barbituates): 200 ng/mL, BZO (Benzodiazepines): 150 ng/mL, BUP (Buprenorphine): 10 ng/mL, SEMAJ (Cocaine): 150 ng/mL, mAMP (Methamphetamine): 500 ng/mL, MTD (Methadone): 200 ng/mL, OPI (Opiates): 100 ng/mL, OXY (Oxycodone): 100 ng/mL, PCP (Phencyclidine): 25 ng/mL, PPX (Propoxyphene): 300 ng/mL, THC (Cannabinoids): 50 ng/mL, TCA (Trycyclic Antidepressants): 300 ng/mL Performed By: #### M DAVID #### [facility] [address] [place] [address] Dr. Ibis Jimenez DRUG CUT HEADER DRUG CLASS TEST SYSTEM CUT-OFF CONCENTRATIONS ARE FOLLOWS: Normal [facility] Comment on above: Performed By: #### M DAVID #### [facility] [address] [place] [address] Dr. Ibis Jimenez mAMP Negative Normal NEGATIVE [facility] Comment on above: Performed By: #### M DAVID #### [facility] [address] [place] [address] Dr. Ibis Jimenez MTD Negative Normal NEGATIVE [facility] Comment on above: Performed By: #### M DAVID #### [facility] [address] [place] [address] Dr. Ibis Jimenez OPI Positive Abnormal NEGATIVE [facility] Comment on above: Performed By: #### M DAVID #### [facility] [address] [place] [address] Dr. Ibis Jimenez OXY Negative Normal NEGATIVE [facility] Comment on above: Performed By: #### M DAVID #### [facility] [address] [place] [address] Dr. Ibis Jimenez PCP Negative Normal NEGATIVE [facility] Comment on above: Performed By: #### M DAVID #### [facility] [address] [place] [address] Dr. Ibis Jimenez PPX Negative Normal NEGATIVE [facility] Comment on above: Performed By: #### M DAVID #### [facility] [address] [place] [address] Dr. Ibis Jimenez TCA Negative Normal NEGATIVE [facility] Comment on above: Performed By: #### M DAVID #### [facility] [address] [place] [address] Dr. Ibis Jimenez THC Positive Abnormal NEGATIVE [facility] Comment on above: Performed By: #### M DAVID #### [facility] [address] [place] [address] Dr. Ibis Jimenez ER URINE PROFILEon 3 Bilirubin Ql (U) Negative Normal NEGATIVE [facility] Comment on above: Performed By: #### M DAVID #### [facility] [address] [place] [address] Dr. Ibis Jimenez Clarity (U) CLEAR Normal CLEAR [facility] Comment on above: Performed By: #### M DAVID #### [facility] [address] [place] [address] Dr. Ibis Jimenez Color (U) YELLOW Normal YELLOW [facility] Comment on above: Performed By: #### M DAVID #### [facility] [address] [place] [address] Dr. Ibis Jimenez ERUAHD A micrscopic examination will be performed if indicated. Normal [facility] Comment on above: Performed By: #### M DAVID #### [facility] [address] [place] [address] Dr. Ibis Jimenez Glucose Ql (U) Negative Normal NEGATIVE [facility] Comment on above: Performed By: #### M DAVID #### [facility] [address] [place] [address] Dr. Ibis Jimenez Hemoglobin Ql (U) TRACE-INTACT Abnormal NEGATIVE [facility] Comment on above: Performed By: #### M DAVID #### [facility] [address] [place] [address] Dr. Ibis Jimenez Ketones Ql (U) Negative Normal NEGATIVE [facility] Comment on above: Performed By: #### M DAVID #### [facility] [address] [place] [address] Dr. Ibis Jimenez LEUKOCYTES Negative Normal NEGATIVE [facility] Comment on above: Performed By: #### M DAVID #### [facility] [address] [address] [address] Ibis Jimenez Nitrite Ql (U) Negative Normal NEGATIVE [facility] Comment on above: Performed By: #### M DAVID #### [facility] [address] [place] [address] Dr. Ibis Jimenez pH (U) 6.0 [pH] Normal 5-9 [facility] Comment on above: Performed By: #### M DAVID #### [facility] [address] [place] [address] Dr. Ibis Jimenez Protein (U) [Mass/Vol] 30 mg/dL Abnormal NEGAT ADALGISA/ TRACE [facility] Comment on above: Performed By: #### M DAVID #### [facility] [address] [place] [address] Dr. Ibis Jimenez SPEC GRAVITY 1.025 Normal 1.005-<=1.02 5 [facility] Comment on above: Performed By: #### M DAVID #### [facility] [address] [place] [address] Dr. Ibis Jimenez UR MICRO IND INDICATED Normal [facility] Comment on above: Performed By: #### M DAVID #### [facility] [address] [place] [address] Dr. Ibis Jimenez Urobilinogen Qn (U) 0.2 {Dinorah'U}/dL Normal 0.2 - 1. 0 [facility] Comment on above: Performed By: #### M DAVID #### [facility] [address] [place] [address] Dr. Ibis Jimenez ETHANOL (BLD ALC)on 06-20-19 ALC NOTE NOTE: 80 mg/dl is the legal limit for a blood alcohol level Normal [facility] Comment on above: Performed By: #### A MM #### [facility] [address] [address] [address] Ibis Jimenez Ethanol [Mass/Vol] mg/dL Normal [facility] Comment on above: Performed By: #### A MM #### [facility] [address] [address] [address] Ibis Jimenez POINT OF CARE GLUCOSEon 05-23 Glucose [Mass/Vol] 88 mg/dL Normal 74-106 [facility] Comment on above: Performed By: #### C VDTBH #### [facility] Laboratory [address] [address] [address] Ibis Jimenez URon 06-19-2022 , QUAL Negative Normal NEGATIVE [facility] Comment on above: Performed By: #### M DAVID #### [facility] [address] [place] [address] Dr. Ibis Jimenez PROF CHEM 8 (BAS METB)on Anion gap [Moles/Vol] 12.6 mmol/L Normal [facility] Comment on above: Performed By: #### A MM #### [facility] [address] [place] [address] Dr. Ibis Jimenez Calcium [Mass/Vol] 8.4 mg/dL Critically low 8.5-10.1 [facility] Comment on above: Performed By: #### A MM #### [facility] [address] [place] [address] Dr. Ibis Jimenez Chloride [Moles/Vol] 107 mmol/L Normal 98-107 [facility] Comment on above: Performed By: #### A MM #### [facility] [address] [place] [address] Dr. Ibis Jimenez CO2 [Moles/Vol] 22.5 mmol/L Normal 21.0-32.0 [facility] Comment on above: Performed By: #### A MM #### [facility] [address] [place] [address] Dr. Ibis Jimenez Creatinine [Mass/Vol] 0.82 mg/dL Normal 0.55-1.02 [facility] Comment on above: Performed By: #### A MM #### [facility] [address] [address] [address] Ibis Jimenez EGFR-AF BURMESE >60 Normal >=60 [facility] Comment on above: Performed By: #### A MM #### [facility] [address] [address] [address] Ibis Jimenez EGFR-NON AF BURMESE >60 Normal >=60 [facility] Comment on above: Performed By: #### A MM #### [facility] [address] [address] [address] Ibis Jimenez Glucose [Mass/Vol] 87 mg/dL Normal 74-106 [facility] Comment on above: Performed By: #### A MM #### [facility] [address] [place] [address] Dr. Ibis Jimenez Potassium [Moles/Vol] 4.1 mmol/L Normal 3.5-5.1 [facility] Comment on above: Performed By: #### A MM #### [facility] [address] [place] [address] Dr. Ibis Jimenez Sodium [Moles/Vol] 138 mmol/L Normal 136-145 [facility] Comment on above: Performed By: #### A MM #### [facility] [address] [place] [address] Dr. Ibis Jimenez Urea nitrogen [Mass/Vol] 22.0 mg/dL Critically high 7.0-18.0 [facility] Comment on above: Performed By: #### A MM #### [facility] [address] [place] [address] Dr. Ibis Jimenez Urea nitrogen/Creatinine [Mass ratio] 26.8 mg/mg Normal [facility] Comment on above: Performed By: #### A MM #### [facility] [address] [place] [address] Dr. Ibis Jimenez SALICYLATEon 06-19-2022 SALICYLATE <2.8 Normal <=19.9 [facility] Comment on above: Performed By: #### A CET, SALYC #### [facility] [address] [address] [address] Ibis Jimenez URINE MICROSCOPIC ONLYon BACTERIA NONE SEEN Normal NONE SEEN [facility] Comment on above: Performed By: #### M DAVID #### [facility] [address] [address] [address] Ibis Jimenez Bacteria identified Cx Nom (U) NOT INDICATED Normal [facility] Comment on above: Performed By: #### M DAVID #### [facility] [address] [place] [address] Dr. Ibis Jimenez CAST SEEN Abnormal NONE SEEN [facility] Comment on above: Performed By: #### M DAVID #### [facility] [address] [place] [address] Dr. Ibis Jimenez Crystals LM Nom (Urine sed) NONE SEEN Normal NONE SEEN [facility] Comment on above: Performed By: #### M DAVID #### [facility] [address] [place] [address] Dr. Ibis Jimenez Epithelial cells LM Ql (Urine sed) MODERATE Abnormal NONE SEEN /RARE [facility] Comment on above: Performed By: #### M DAVID #### [facility] [address] [place] [address] Dr. Ibis Jimenez HYALINE CAST FEW Normal [facility] Comment on above: Performed By: #### M DAVID #### [facility] [address] [place] [address] Dr. Ibis Jimenez MUCOUS NONE SEEN Normal NONE SEEN [facility] Comment on above: Performed By: #### M DAVID #### [facility] [address] [place] [address] Dr. Ibis Jimenez RBC 2-5 Abnormal 0-2 [facility] Comment on above: Performed By: #### M DAVID #### [facility] [address] [place] [address] Dr. Ibis Jimenez WBC NONE SEEN Normal NONE SEEN [facility] Comment on above: Performed By: #### M DAVID #### [facility] [address] [place] [address] Dr. Ibis Jimenez CBC AUTO DIFFon 06-11-2022 BASO # 0.0 103/ul Normal 0.0-0.1 [facility] Comment on above: Performed By: #### C VDTBH #### [facility] [address] [place] [address] Dr. Ibis Jimenez Basophils/100 WBC (Bld) 0.3 % Normal 0.2-2.0 [facility] Comment on above: Performed By: #### C VDTBH #### [facility] [address] [place] [address] Dr. Ibis Jimenez EO # 0.0 103/ul Normal 0.0-0.7 [facility] Comment on above: Performed By: #### C VDTBH #### [facility] [address] [place] [address] Dr. Ibis Jimenez Eosinophils/100 WBC (Bld) 0.1 % Critically low 0.9-7.0 [facility] Comment on above: Performed By: #### C VDTBH #### [facility] [address] [place] [address] Dr. Ibis Jimenez Erythrocyte distribution width (RBC) [Ratio] 13.2 % Normal 11.0-15.0 [facility] Comment on above: Performed By: #### C VDTBH #### [facility] [address] [place] [address] Dr. Ibis Jimenez Hematocrit (Bld) [Volume fraction] 38.5 % Normal 36.0-48.0 [facility] Comment on above: Performed By: #### C VDTBH #### [facility] [address] [place] [address] Dr. Ibis Jimenez Hemoglobin (Bld) [Mass/Vol] 12.4 g/dL Normal 12.0-16.0 [facility] Comment on above: Performed By: #### C VDTBH #### [facility] [address] [place] [address] Dr. Ibis Jimenez IG # 0.20 10e3/ul Critically high 0.00-0.03 [facility] Comment on above: Performed By: #### C VDTBH #### [facility] [address] [address] [address] Ibis Jimenez IG % 1.8 % Critically high 0.0-0.5 [facility] Comment on above: Performed By: #### C VDTBH #### [facility] [address] [address] [address] Ibis Jimenez LYMPH # 0.5 103/ul Critically low 1.2-3.8 [facility] Comment on above: Performed By: #### C VDTBH #### [facility] [address] [place] [address] Dr. Ibis Jimenez Lymphocytes/100 WBC (Bld) 4.6 % Critically low 20.5-60.0 [facility] Comment on above: Performed By: #### C VDTBH #### [facility] [address] [place] [address] Dr. Ibis Jimenez MANUAL DIFF REQ NO Normal [facility] Comment on above: Performed By: #### C VDTBH #### [facility] [address] [place] [address] Dr. Ibis Jimenez MCH (RBC) [Entitic mass] 28.2 pg Normal 26.7-34.0 [facility] Comment on above: Performed By: #### C VDTBH #### [facility] [address] [place] [address] Dr. Ibis Jimenez MCHC (RBC) [Mass/Vol] 32.2 g/dL Normal 29.9-35.2 [facility] Comment on above: Performed By: #### C VDTBH #### [facility] [address] [place] [address] Dr. Ibis Jimenez MCV (RBC) [Entitic vol] 87.5 fL Normal 81.0-99.0 [facility] Comment on above: Performed By: #### C VDTBH #### [facility] [address] [place] [address] Dr. Ibis Jimenez MONO # 0.1 103/ul Critically low 0.3-0.8 [facility] Comment on above: Performed By: #### C VDTBH #### [facility] [address] [address] [address] Ibis Jimenez Monocytes/100 WBC (Bld) 1.3 % Critically low 1.7-12.0 [facility] Comment on above: Performed By: #### C VDTBH #### [facility] [address] [place] [address] Dr. Ibis Jimenez NEUT # 10.1 103/ul Critically high 1.4-6.5 [facility] Comment on above: Performed By: #### C VDTBH #### [facility] [address] [place] [address] Dr. Ibis Jimenez Neutrophils/100 WBC (Bld) 91.9 % Critically high 43.0-75.0 [facility] Comment on above: Performed By: #### C VDTBH #### [facility] [address] [place] [address] Dr. Ibis Jimenez Platelet mean volume (Bld) [Entitic vol] 9.1 fL Critically low 9.5-13.5 [facility] Comment on above: Performed By: #### C VDTBH #### [facility] [address] [place] [address] Dr. Ibis Jimenez PLT 240 103/ul Normal 150-450 [facility] Comment on above: Performed By: #### C VDTBH #### [facility] [address] [place] [address] Dr. Ibis Jimenez RBC 4.40 106/ul Normal 4.20-5.40 [facility] Comment on above: Performed By: #### C VDTBH #### [facility] [address] [place] [address] Dr. Ibis Jimenez WBC 11.0 103/ul Normal 4.0-11.0 [facility] Comment on above: Performed By: #### C VDTBH #### [facility] [address] [place] [address] Dr. Ibis Jimenez PROF 14(COMP METB)on 023 Albumin [Mass/Vol] 3.3 g/dL Critically low 3.4-5.0 [facility] Comment on above: Performed By: #### B MP #### [facility] [address] [place] [address] Dr. Ibis Jimenez Albumin/Globulin [Mass ratio] 0.9 {ratio} Normal [facility] Comment on above: Performed By: #### B MP #### [facility] [address] [address] [address] Ibis Jimenez ALP [Catalytic activity/Vol] 63 U/L Normal 46-116 [facility] Comment on above: Performed By: #### B MP #### [facility] [address] [place] [address] Dr. Ibis Jimenez ALT [Catalytic activity/Vol] 32 U/L Normal 14-59 [facility] Comment on above: Performed By: #### B MP #### [facility] [address] [place] [address] Dr. Ibis Jimenez Anion gap [Moles/Vol] 12.9 mmol/L Normal [facility] Comment on above: Performed By: #### B MP #### [facility] [address] [address] [address] Ibis Jimenez AST [Catalytic activity/Vol] 14 U/L Critically low 15-37 [facility] Comment on above: Performed By: #### B MP #### [facility] [address] [place] [address] Dr. Ibis Jimenez Bilirubin [Mass/Vol] 0.2 mg/dL Normal 0.2-1.0 [facility] Comment on above: Performed By: #### B MP #### [facility] [address] [place] [address] Dr. Ibis Jimenez Calcium [Mass/Vol] 8.5 mg/dL Normal 8.5-10.1 [facility] Comment on above: Performed By: #### B MP #### [facility] [address] [place] [address] Dr. Ibis Jimenez Chloride [Moles/Vol] 106 mmol/L Normal 98-107 [facility] Comment on above: Performed By: #### B MP #### [facility] [address] [address] [address] Ibis Jimenez CO2 [Moles/Vol] 26.6 mmol/L Normal 21.0-32.0 [facility] Comment on above: Performed By: #### B MP #### [facility] [address] [address] [address] Ibis Jimenez Creatinine [Mass/Vol] 0.89 mg/dL Normal 0.55-1.02 [facility] Comment on above: Performed By: #### B MP #### [facility] [address] [address] [address] Ibis Jimenez EGFR-AF BURMESE >60 Normal >=60 [facility] Comment on above: Performed By: #### B MP #### [facility] [address] [place] [address] Dr. Ibis Jimenez EGFR-NON AF BURMESE >60 Normal >=60 [facility] Comment on above: Performed By: #### B MP #### [facility] [address] [address] [address] Ibis Jimenez Globulin (S) [Mass/Vol] 3.6 g/dL Normal [facility] Comment on above: Performed By: #### B MP #### [facility] [address] [place] [address] Dr. Ibis Jimenez Glucose [Mass/Vol] 134 mg/dL Critically high 74-106 [facility] Comment on above: Performed By: #### B MP #### [facility] [address] [place] [address] Dr. Ibis Jimenez Potassium [Moles/Vol] 4.5 mmol/L Normal 3.5-5.1 [facility] Comment on above: Performed By: #### B MP #### [facility] [address] [address] [address] Ibis Jimenez Protein [Mass/Vol] 6.9 g/dL Normal 6.4-8.2 [facility] Comment on above: Performed By: #### B MP #### [facility] [address] [address] [address] Ibis Jimenez Sodium [Moles/Vol] 141 mmol/L Normal 136-145 [facility] Comment on above: Performed By: #### B MP #### [facility] [address] [address] [address] Ibis Jimenez Urea nitrogen [Mass/Vol] 15.0 mg/dL Normal 7.0-18.0 [facility] Comment on above: Performed By: #### B MP #### [facility] [address] [address] [address] Ibis Jimenez Urea nitrogen/Creatinine [Mass ratio] 16.9 mg/mg Normal [facility] Comment on above: Performed By: #### B MP #### [facility] [address] [address] [address] HEAD WO CONon [...] by: NICHOLAS MARCUS Date: 2022-05-23 19:25 Normal [facility] CT LSPINE WO CONon 3 CT LSPINE WO CON CT CERVICAL SPINE WITHOUT CONTRAST. [...] SINDY LIAOU Date: 2022-05-23 19:41 Normal [facility] CT HEAD WO CONon 04-01-2022 [...] ROBIN IRBY Date: 2022-03-31 22:40 Normal [facility]23 SARS-CoV-2 (COVID-19) RNA ASURABH+probe Ql (Unsp spec) Not detected Normal NOT DETECTED [facility] Comment on above: Result Comment: [...] for this test is supported by the Med Admin of Health and Human Service's declaration that [...] used). Performed By: #### C VDTB #### [facility] [address] [place] [address] Dr. Ibis Jimenez ER URINE PROFILEon 3 Bilirubin Ql (U) Negative Normal NEGATIVE [facility] Comment on above: Performed By: #### A CET, SALYC #### [facility] [address] [place] [address] Dr. Ibis Jimenez Clarity (U) CLEAR Normal CLEAR [facility] Comment on above: Performed By: #### A CET, SALYC #### [facility] [address] [place] [address] Dr. Ibis Jimenez Color (U) YELLOW Normal YELLOW [facility] Comment on above: Performed By: #### A CET, SALYC #### [facility] [address] [place] [address] Dr. Ibis Jimenez ERUAHD A micrscopic examination will be performed if indicated. Normal [facility] Comment on above: Performed By: #### A CET, SALYC #### [facility] [address] [place] [address] Dr. Ibis Jimenez Glucose Ql (U) Negative Normal NEGATIVE [facility] Comment on above: Performed By: #### A CET, SALYC #### [facility] [address] [place] [address] Dr. Ibis Jimenez Hemoglobin Ql (U) SMALL Abnormal NEGATIVE [facility] Comment on above: Performed By: #### A CET, SALYC #### [facility] [address] [place] [address] Dr. Ibis Jimenez Ketones Ql (U) Negative Normal NEGATIVE [facility] Comment on above: Performed By: #### A CET, SALYC #### [facility] [address] [place] [address] Dr. Ibis Jimenez LEUKOCYTES Negative Normal NEGATIVE [facility] Comment on above: Performed By: #### A CET, SALYC #### [facility] [address] [place] [address] Dr. Ibis Jimenez Nitrite Ql (U) Negative Normal NEGATIVE [facility] Comment on above: Performed By: #### A CET, SALYC #### [facility] [address] [place] [address] Dr. Ibis Jimenez pH (U) 5.5 [pH] Normal 5-9 [facility] Comment on above: Performed By: #### A CET, SALYC #### [facility] [address] [place] [address] Dr. Ibis Jimenez SPEC GRAVITY >=1.030 Abnormal 1.005-<=1.02 5 [facility] Comment on above: Performed By: #### A CET, SALYC #### [facility] [address] [place] [address] Dr. Ibis Jimenez UA PROTEIN Negative Normal NEGATIVE/ TRACE [facility] Comment on above: Performed By: #### A CET, SALYC #### [facility] [address] [place] [address] Dr. Ibis Jimenez UR MICRO IND INDICATED Normal [facility] Comment on above: Performed By: #### A CET, SALYC #### [facility] [address] [place] [address] Dr. Ibis Jimenez Urobilinogen Qn (U) 0.2 {Dinorah'U}/dL Normal 0.2 - 1. 0 [facility] Comment on above: Performed By: #### A CET, SALYC #### [facility] [address] [place] [address] Dr. Ibis Jimenez INFLUENZA A AND B AGon 04-01 INFLUANEGH SEE BELOW Normal [facility] Comment on above: Result Comment: Nega tive for Flu A protein angiten. Infection due to Flu A cannot be ruled out. Flu A angiten in the sample may be below the detection limit of the test. Performed By: #### A MM #### [facility] [address] [place] [address] Dr. Ibis Jimenez INFLUBNEGH SEE BELOW Normal [facility] Comment on above: Result Comment: Nega tive for Flu B protein antigen. Infection due to Flu B cannot be ruled out. Flu B antigen in the sample may be below the detection limit of the test. Performed By: #### A MM #### [facility] [address] [place] [address] Dr. Ibis Jimenez INFLUENZA A AG Negative Normal NEGATIVE SEE COMMENT [facility] Comment on above: Performed By: #### A MM #### [facility] [address] [place] [address] Dr. Ibis Jimenez INFLUENZA B AG Negative Normal NEGATIVE SEE COMMENT [facility] Comment on above: Performed By: #### A MM #### [facility] [address] [place] [address] Dr. Ibis Jimenez LACTATE/LACTIC ACIDon 2022 Lactate [Moles/Vol] 1.9 mmol/L Normal 0.4-1.[address] [facility] Comment on above: Performed By: #### L ACT #### [facility] [address] [place] [address] Dr. Ibis Jimenez URINE MICROSCOPIC ONLYon BACTERIA TRACE Abnormal NONE SEEN [facility] Comment on above: Performed By: #### A KORI DAVIS #### [facility] [address] [place] [address] Dr. Ibis Jimenez Bacteria identified Cx Nom (U) NOT INDICATED Normal [facility] Comment on above: Performed By: #### A KORI DAVIS #### [facility] [address] [place] [address] Dr. Ibis Jimenez CAST NONE SEEN Normal NONE SEEN [facility] Comment on above: Performed By: #### A CET, SALYC #### [facility] [address] [place] [address] Dr. Ibis Jimenez Crystals LM Nom (Urine sed) NONE SEEN Normal NONE SEEN [facility] Comment on above: Performed By: #### A CET, SALYC #### [facility] [address] [place] [address] Dr. Ibis Jimenez Epithelial cells LM Ql (Urine sed) RARE Normal NONE SEEN /RARE [facility] Comment on above: Performed By: #### A CET, SALYC #### [facility] [address] [place] [address] Dr. Iibs Jimenez MUCOUS TRACE Abnormal NONE SEEN [facility] Comment on above: Performed By: #### A CET, SALYC #### [facility] [address] [place] [address] Dr. Ibis Jimenez RBC 0-2 Normal 0-2 [facility] Comment on above: Performed By: #### A CET, SALYC #### [facility] [address] [place] [address] Dr. Ibis Jimenez WBC NONE SEEN Normal NONE SEEN [facility] Comment on above: Performed By: #### A CET, SALYC #### [facility] [address] [place] [address] Dr. Ibis Jimenez AMMONIAon 03-31-2022 Ammonia (P) [Moles/Vol] 31 umol/L Normal 11-32 [facility] Comment on above: Performed By: #### A MM #### [facility] [address] [place] [address] Dr. Ibis Jimenez CBC AUTO DIFFon 03-31-2022 BASO # 0.0 103/ul Normal 0.0-0.1 [facility] Comment on above: Performed By: #### A MM #### [facility] [address] [place] [address] Dr. Ibis Jimenez Basophils/100 WBC (Bld) 0.4 % Normal 0.2-2.0 [facility] Comment on above: Performed By: #### A MM #### [facility] [address] [place] [address] Dr. Ibis Jimenez EO # 0.5 103/ul Normal 0.0-0.7 [facility] Comment on above: Performed By: #### A MM #### [facility] [address] [place] [address] Dr. Ibis Jimenez Eosinophils/100 WBC (Bld) 6.4 % Normal 0.9-7.0 [facility] Comment on above: Performed By: #### A MM #### [facility] [address] [place] [address] Dr. Ibis Jimenez Erythrocyte distribution width (RBC) [Ratio] 12.8 % Normal 11.0-15.0 [facility] Comment on above: Performed By: #### A MM #### [facility] [address] [place] [address] Dr. Ibis Jimenez Hematocrit (Bld) [Volume fraction] 36.6 % Normal 36.0-48.0 [facility] Comment on above: Performed By: #### A MM #### [facility] [address] [place] [address] Dr. Ibis Jimenez Hemoglobin (Bld) [Mass/Vol] 12.5 g/dL Normal 12.0-16.0 [facility] Comment on above: Performed By: #### A MM #### [facility] [address] [place] [address] Dr. Ibis Jimenez IG # 0.02 10e3/ul Normal 0.00-0.03 [facility] Comment on above: Performed By: #### A MM #### [facility] [address] [place] [address] Dr. Ibis Jimenez IG % 0.3 % Normal 0.0-0.5 [facility] Comment on above: Performed By: #### A MM #### [facility] [address] [place] [address] Dr. Ibis Jimenez LYMPH # 2.0 103/ul Normal 1.2-3.8 [facility] Comment on above: Performed By: #### A MM #### [facility] [address] [place] [address] Dr. Ibis Jimenez Lymphocytes/100 WBC (Bld) 25.0 % Normal 20.5-60.0 [facility] Comment on above: Performed By: #### A MM #### [facility] [address] [place] [address] Dr. Ibis Jimenez MANUAL DIFF REQ NO Normal [facility] Comment on above: Performed By: #### A MM #### [facility] [address] [place] [address] Dr. Ibis Jimenez MCH (RBC) [Entitic mass] 29.5 pg Normal 26.7-34.0 [facility] Comment on above: Performed By: #### A MM #### [facility] [address] [place] [address] Dr. Ibis Jimenez MCHC (RBC) [Mass/Vol] 34.2 g/dL Normal 29.9-35.2 [facility] Comment on above: Performed By: #### A MM #### [facility] [address] [place] [address] Dr. Ibis Jimenez MCV (RBC) [Entitic vol] 86.3 fL Normal 81.0-99.0 [facility] Comment on above: Performed By: #### A MM #### [facility] [address] [place] [address] Dr. Ibis Jimenez MONO # 0.4 103/ul Normal 0.3-0.8 [facility] Comment on above: Performed By: #### A MM #### [facility] [address] [place] [address] Dr. Ibis Jimenez Monocytes/100 WBC (Bld) 5.6 % Normal 1.7-12.0 [facility] Comment on above: Performed By: #### A MM #### [facility] [address] [place] [address] Dr. Ibis Jimenez NEUT # 4.9 103/ul Normal 1.4-6.5 [facility] Comment on above: Performed By: #### A MM #### [facility] [address] [place] [address] Dr. Ibis Jimenez Neutrophils/100 WBC (Bld) 62.3 % Normal 43.0-75.0 [facility] Comment on above: Performed By: #### A MM #### [facility] [address] [place] [address] Dr. Ibis Jimenez Platelet mean volume (Bld) [Entitic vol] 9.5 fL Normal 9.5-13.5 [facility] Comment on above: Performed By: #### A MM #### [facility] [address] [place] [address] Dr. Ibis Jimenez PLT 246 103/ul Normal 150-450 [facility] Comment on above: Performed By: #### A MM #### [facility] [address] [place] [address] Dr. Ibis Jimenez RBC 4.24 106/ul Normal 4.20-5.40 [facility] Comment on above: Performed By: #### A MM #### [facility] [address] [place] [address] Dr. Ibis Jimenez WBC 7.8 103/ul Normal 4.0-11.0 [facility] Comment on above: Performed By: #### A MM #### [facility] [address] [place] [address] Dr. Ibis Jimenez CULTURE BLOODon 03-31-2022 Microscopic examination of blood, culture Culture Observations: NO GROWTH AT 5 DAYS. Normal [facility] Comment on above: Performed By: #### B [id number] #### [facility] [address] [place] [address] Dr. Ibis Jimenez Performed By: #### B MP #### [facility] [address] [place] [address] Dr. Ibis Jimenez LACTATE/LACTIC ACIDon 2022 Lactate [Moles/Vol] 2.8 mmol/L Critically high 0.4-1.9 [facility] Comment on above: Performed By: #### C VDTBH #### [facility] [address] [place] [address] Dr. Ibis Jimenez PROF 14(COMP METB)on 023 Albumin [Mass/Vol] 3.4 g/dL Normal 3.4-5.0 [facility] Comment on above: Performed By: #### B MP #### [facility] [address] [place] [address] Dr. Ibis Jimenez Albumin/Globulin [Mass ratio] 1.2 {ratio} Normal [facility] Comment on above: Performed By: #### B MP #### [facility] [address] [place] [address] Dr. Ibis Jimenez ALP [Catalytic activity/Vol] 85 U/L Normal 46-116 [facility] Comment on above: Performed By: #### B MP #### [facility] [address] [place] [address] Dr. Ibis Jimenez ALT [Catalytic activity/Vol] 18 U/L Normal 14-59 [facility] Comment on above: Performed By: #### B MP #### [facility] [address] [place] [address] Dr. Ibis Jimenez Anion gap [Moles/Vol] 13.2 mmol/L Normal [facility] Comment on above: Performed By: #### B MP #### [facility] [address] [place] [address] Dr. Ibis Jimenez AST [Catalytic activity/Vol] 11 U/L Critically low 15-37 [facility] Comment on above: Performed By: #### B MP #### [facility] [address] [place] [address] Dr. Ibis Jimenez Bilirubin [Mass/Vol] 0.2 mg/dL Normal 0.2-1.0 [facility] Comment on above: Performed By: #### B MP #### [facility] [address] [place] [address] Dr. Ibis Jimenez Calcium [Mass/Vol] 8.6 mg/dL Normal 8.5-10.1 [facility] Comment on above: Performed By: #### B MP #### [facility] [address] [place] [address] Dr. Ibis Jimenez Chloride [Moles/Vol] 105 mmol/L Normal 98-107 [facility] Comment on above: Performed By: #### B MP #### [facility] [address] [address] [address] Ibis Jimenez CO2 [Moles/Vol] 25.1 mmol/L Normal 21.0-32.0 [facility] Comment on above: Performed By: #### B MP #### [facility] [address] [address] [address] Ibis Jimenez Creatinine [Mass/Vol] 0.80 mg/dL Normal 0.55-1.02 [facility] Comment on above: Performed By: #### B MP #### [facility] [address] [place] [address] Dr. Ibis Jimenez EGFR-AF BURMESE >60 Normal >=60 [facility] Comment on above: Performed By: #### B MP #### [facility] [address] [place] [address] Dr. Ibis Jimenez EGFR-NON AF BURMESE >60 Normal >=60 [facility] Comment on above: Performed By: #### B MP #### [facility] [address] [address] [address] Ibis Jimenez Globulin (S) [Mass/Vol] 2.9 g/dL Normal [facility] Comment on above: Performed By: #### B MP #### [facility] [address] [place] [address] Dr. Ibis Jimenez Glucose [Mass/Vol] 99 mg/dL Normal 74-106 [facility] Comment on above: Performed By: #### B MP #### [facility] [address] [place] [address] Dr. Ibis Jimenez Potassium [Moles/Vol] 3.3 mmol/L Critically low 3.5-5.1 [facility] Comment on above: Performed By: #### B MP #### [facility] [address] [address] [address] Ibis Jimenez Protein [Mass/Vol] 6.3 g/dL Critically low 6.4-8.2 [facility] Comment on above: Performed By: #### B MP #### [facility] [address] [address] [address] Ibis Jimenez Sodium [Moles/Vol] 140 mmol/L Normal 136-145 [facility] Comment on above: Performed By: #### B MP #### [facility] [address] [place] [address] Dr. Ibis Jimenez Urea nitrogen [Mass/Vol] 10.0 mg/dL Normal 7.0-18.0 [facility] Comment on above: Performed By: #### B MP #### [facility] [address] [place] [address] Dr. Ibis Jimenez Urea nitrogen/Creatinine [Mass ratio] 12.5 mg/mg Normal [facility] Comment on above: Performed By: #### B MP #### [facility] [address] [place] [address] Dr. Ibis Jimenez CBC AUTO DIFFon 01-14-2022 BASO # 0.0 103/ul Normal 0.0-0.1 [facility] Comment on above: Performed By: #### A MM #### [facility] [address] [place] [address] Dr. Ibis Jimenez Basophils/100 WBC (Bld) 0.3 % Normal 0.2-2.0 [facility] Comment on above: Performed By: #### A MM #### [facility] [address] [place] [address] Dr. Ibis Jimenez EO # 0.2 103/ul Normal 0.0-0.7 [facility] Comment on above: Performed By: #### A MM #### [facility] [address] [place] [address] Dr. Ibis Jimenez Eosinophils/100 WBC (Bld) 2.7 % Normal 0.9-7.0 [facility] Comment on above: Performed By: #### A MM #### [facility] [address] [place] [address] Dr. Ibis Jimenez Erythrocyte distribution width (RBC) [Ratio] 13.2 % Normal 11.0-15.0 [facility] Comment on above: Performed By: #### A MM #### [facility] [address] [address] [address] Ibis Jimenez Hematocrit (Bld) [Volume fraction] 35.7 % Critically low 36.0-48.0 [facility] Comment on above: Performed By: #### A MM #### [facility] [address] [place] [address] Dr. Ibis Jimenez Hemoglobin (Bld) [Mass/Vol] 12.2 g/dL Normal 12.0-16.0 [facility] Comment on above: Performed By: #### A MM #### [facility] [address] [place] [address] Dr. Ibis Jimenez IG # 0.04 10e3/ul Critically high 0.00-0.03 [facility] Comment on above: Performed By: #### A MM #### [facility] [address] [place] [address] Dr. Ibis Jimenez IG % 0.5 % Normal 0.0-0.5 [facility] Comment on above: Performed By: #### A MM #### [facility] [address] [place] [address] Dr. Ibis Jimenez LYMPH # 2.1 103/ul Normal 1.2-3.8 [facility] Comment on above: Performed By: #### A MM #### [facility] [address] [place] [address] Dr. Ibis Jimenez Lymphocytes/100 WBC (Bld) 27.3 % Normal 20.5-60.0 [facility] Comment on above: Performed By: #### A MM #### [facility] [address] [place] [address] Dr. Ibis Jimenez MANUAL DIFF REQ NO Normal [facility] Comment on above: Performed By: #### A MM #### [facility] [address] [place] [address] Dr. Ibis Jimenez MCH (RBC) [Entitic mass] 29.0 pg Normal 26.7-34.0 [facility] Comment on above: Performed By: #### A MM #### [facility] [address] [address] [address] Ibis Jimenez MCHC (RBC) [Mass/Vol] 34.2 g/dL Normal 29.9-35.2 [facility] Comment on above: Performed By: #### A MM #### [facility] [address] [address] [address] Ibis Jimenez MCV (RBC) [Entitic vol] 84.8 fL Normal 81.0-99.0 [facility] Comment on above: Performed By: #### A MM #### [facility] [address] [place] [address] Dr. Ibis Jimenez MONO # 0.7 103/ul Normal 0.3-0.8 [facility] Comment on above: Performed By: #### A MM #### [facility] [address] [place] [address] Dr. Ibis Jimenez Monocytes/100 WBC (Bld) 8.7 % Normal 1.7-12.0 [facility] Comment on above: Performed By: #### A MM #### [facility] [address] [place] [address] Dr. Ibis Jimenez NEUT # 4.7 103/ul Normal 1.4-6.5 [facility] Comment on above: Performed By: #### A MM #### [facility] [address] [place] [address] Dr. Ibis Jimenez Neutrophils/100 WBC (Bld) 60.5 % Normal 43.0-75.0 [facility] Comment on above: Performed By: #### A MM #### [facility] [address] [place] [address] Dr. Ibis Jimenez Platelet mean volume (Bld) [Entitic vol] 9.6 fL Normal 9.5-13.5 [facility] Comment on above: Performed By: #### A MM #### [facility] [address] [place] [address] Dr. Ibis Jimenez PLT 212 103/ul Normal 150-450 [facility] Comment on above: Performed By: #### A MM #### [facility] [address] [place], [place] [address] Dr. Ibis Jimenez RBC 4.21 106/ul Normal 4.20-5.40 [facility] Comment on above: Performed By: #### A MM #### [facility] [address] [place], [place] [address] Dr. Ibis Jimenez WBC 7.7 103/ul Normal 4.0-11.0 [facility] Comment on above: Performed By: #### A MM #### [facility] [address] [place], [place] [address] ABD/PELV W CONon [...] acute renal pathology. Electronically authenticated by: TONY NABILA Date: 2022-01-14 20:01 Normal [facility] URINE PROFILEon 2 Bilirubin Ql (U) Negative Normal NEGATIVE [facility] Comment on above: Performed By: #### A CET, SALYC #### [facility] [address] [place] [address] Dr. Ibis Jimenez Clarity (U) CLEAR Normal CLEAR [facility] Comment on above: Performed By: #### A CET, SALYC #### [facility] [address] [place] [address] Dr. Ibis Jimenez Color (U) LT. YELLOW Normal YELLOW [facility] Comment on above: Performed By: #### A CET, SALYC #### [facility] [address] [place] [address] Dr. Ibis RODRIGUEZ A micrscopic examination will be performed if indicated. Normal [facility] Comment on above: Performed By: #### A CET, SALYC #### [facility] [address] [place] [address] Dr. Ibis Jimenez Glucose Ql (U) Negative Normal NEGATIVE [facility] Comment on above: Performed By: #### A CET, SALYC #### [facility] [address] [place] [address] Dr. Ibis Jimenez Hemoglobin Ql (U) Negative Normal NEGATIVE [facility] Comment on above: Performed By: #### A CET, SALYC #### [facility] [address] [place] [address] Dr. Ibis Jimenez Ketones Ql (U) Negative Normal NEGATIVE [facility] Comment on above: Performed By: #### A CET, SALYC #### [facility] [address] [place] [address] Dr. Ibis Jimenez LEUKOCYTES TRACE Abnormal NEGATIVE [facility] Comment on above: Performed By: #### A CET, SALYC #### [facility] [address] [place] [address] Dr. Ibis Jimenez Nitrite Ql (U) Negative Normal NEGATIVE [facility] Comment on above: Performed By: #### A CET, SALYC #### [facility] [address] [address] [address] Ibis Jimenez pH (U) 5.5 [pH] Normal 5-9 [facility] Comment on above: Performed By: #### A CET, SALYC #### [facility] [address] [address] [address] Ibis Jimenez SPEC GRAVITY 1.025 Normal 1.005-<=1.[address] [place] [address] Comment on above: Performed By: #### A CET, SALYC #### [facility] [address] [place] [address] Dr. Ibis Jimenez UA PROTEIN Negative Normal NEGATIVE/ TRACE [facility] Comment on above: Performed By: #### A CET, SALYC #### [facility] [address] [place] [address] Dr. Ibis Jimenez UR MICRO IND INDICATED Normal [facility] Comment on above: Performed By: #### A CET, SALYC #### [facility] [address] [address] [address] Ibis Jimenez Urobilinogen Qn (U) 0.2 {Dinorah'U}/dL Normal 0.2 - 1. 0 [facility] Comment on above: Performed By: #### A CET, SALYC #### [facility] [address] [place] [address] Dr. Ibis Jimenez URon 01-14-2022 , QUAL Negative Normal NEGATIVE [facility] Comment on above: Performed By: #### A CET, SALYC #### [facility] [address] [place] [address] Dr. Ibis Jimenez PROF CHEM 8 (BAS METB)on Anion gap [Moles/Vol] 9.9 mmol/L Normal [facility] Comment on above: Performed By: #### B MP #### [facility] [address] [place] [address] Dr. Ibis Jimenez Calcium [Mass/Vol] 8.6 mg/dL Normal 8.5-10.1 [facility] Comment on above: Performed By: #### B MP #### [facility] [address] [address] [address] Ibis Jimenez Chloride [Moles/Vol] 105 mmol/L Normal 98-107 [facility] Comment on above: Performed By: #### B MP #### [facility] [address] [address] [address] Ibis Jimenez CO2 [Moles/Vol] 27.5 mmol/L Normal 21.0-32.0 [facility] Comment on above: Performed By: #### B MP #### [facility] [address] [address] [address] Ibis Jimenez Creatinine [Mass/Vol] 0.70 mg/dL Normal 0.55-1.02 [facility] Comment on above: Performed By: #### B MP #### [facility] [address] [address] [address] Ibis Jimenez EGFR-AF BURMESE >60 Normal >=60 [facility] Comment on above: Performed By: #### B MP #### [facility] [address] [address] [address] Ibis Jimenez EGFR-NON AF BURMESE >60 Normal >=60 [facility] Comment on above: Performed By: #### B MP #### [facility] [address] [address] [address] Ibis Jimenez Glucose [Mass/Vol] 83 mg/dL Normal 74-106 [facility] Comment on above: Performed By: #### B MP #### [facility] [address] [address] [address] Ibis Jimenez Potassium [Moles/Vol] 4.4 mmol/L Normal 3.5-5.1 [facility] Comment on above: Performed By: #### B MP #### [facility] [address] [address] [address] Ibis Jimenez Sodium [Moles/Vol] 138 mmol/L Normal 136-145 [facility] Comment on above: Performed By: #### B MP #### [facility] [address] [place] [address] Dr. Ibis Jimenez Urea nitrogen [Mass/Vol] 13.0 mg/dL Normal 7.0-18.0 [facility] Comment on above: Performed By: #### B MP #### [facility] [address] [place] [address] Dr. Ibis Jimenez Urea nitrogen/Creatinine [Mass ratio] 18.6 mg/mg Normal [facility] Comment on above: Performed By: #### B MP #### [facility] [address] [place] [address] Dr. Ibis Jimenez URINE MICROSCOPIC ONLYon BACTERIA NONE SEEN Normal NONE SEEN [facility] Comment on above: Performed By: #### A CET, SALYC #### [facility] [address] [place] [address] Dr. Ibis Jimenez Bacteria identified Cx Nom (U) NOT INDICATED Normal [facility] Comment on above: Performed By: #### A CET, SALYC #### [facility] [address] [place] [address] Dr. Ibis Jimenez CAST NONE SEEN Normal NONE SEEN [facility] Comment on above: Performed By: #### A CET, SALYC #### [facility] [address] [place] [address] Dr. Ibis Jimenez Crystals LM Nom (Urine sed) NONE SEEN Normal NONE SEEN [facility] Comment on above: Performed By: #### A CET, SALYC #### [facility] [address] [place] [address] Dr. Ibis Jimenez Epithelial cells LM Ql (Urine sed) FEW Abnormal NONE SEEN /RARE [facility] Comment on above: Performed By: #### A CET, SALYC #### [facility] [address] [place] [address] Dr. Ibis Jimenez MUCOUS NONE SEEN Normal NONE SEEN [facility] Comment on above: Performed By: #### A CET, SALYC #### [facility] [address] [place] [address] Dr. Ibis Jimenez RBC NONE SEEN Abnormal 0-2 [facility] Comment on above: Performed By: #### A CET, SALYC #### [facility] [address] [place] [address] Dr. Ibis Jimenez WBC NONE SEEN Normal NONE SEEN [facility] Comment on above: Performed By: #### A CET, SALYC #### [facility] [address] [place] [address] Dr. Ibis Jimenez CBC AUTO DIFFon 01-07-2022 BASO # 0.0 103/ul Normal 0.0-0.1 [facility] Comment on above: Performed By: #### A CET, SALYC #### [facility] [address] [place] [address] Dr. Ibis Jimenez Basophils/100 WBC (Bld) 0.2 % Normal 0.2-2.0 [facility] Comment on above: Performed By: #### A CET, SALYC #### [facility] [address] [place] [address] Dr. Ibis Jimenez EO # 0.0 103/ul Normal 0.0-0.7 [facility] Comment on above: Performed By: #### A CET, SALYC #### [facility] [address] [place] [address] Dr. Ibis Jimenez Eosinophils/100 WBC (Bld) 0.4 % Critically low 0.9-7.0 [facility] [place] Comment on above: Performed By: #### A CET, SALYC #### [facility] [address] [place] [address] Dr. Ibis Jimenez Erythrocyte distribution width (RBC) [Ratio] 13.2 % Normal 11.0-15.0 [facility] [place] Comment on above: Performed By: #### A CET, SALYC #### [facility] [address] [place] [address] Dr. Ibis Jimenez Hematocrit (Bld) [Volume fraction] 39.7 % Normal 36.0-48.0 [facility] [place] Comment on above: Performed By: #### A CET, SALYC #### [facility] [address] [place] [address] Dr. Ibis Jimenez Hemoglobin (Bld) [Mass/Vol] 13.4 g/dL Normal 12.0-16.0 [facility] [place] Comment on above: Performed By: #### A CET, SALYC #### [facility] [address] [place] [address] Dr. Ibis Jimenez IG # 0.06 10e3/ul Critically high 0.00-0.03 [facility] Comment on above: Performed By: #### A CET, SALYC #### [facility] [address] [place] [address] Dr. Ibis Jimenez IG % 0.5 % Normal 0.0-0.5 [facility] [place] Comment on above: Performed By: #### A CET, SALYC #### [facility] [address] [place] [address] Dr. Ibis Jimenez LYMPH # 2.6 103/ul Normal 1.2-3.8 [facility] [place] Comment on above: Performed By: #### A CET, SALYC #### [facility] [address] [place] [address] Dr. Ibis Jimenez Lymphocytes/100 WBC (Bld) 23.8 % Normal 20.5-60.0 [facility] [place] Comment on above: Performed By: #### A CET, SALYC #### [facility] [address] [place] [address] Dr. Ibis Jimenez MANUAL DIFF REQ NO Normal [facility] Comment on above: Performed By: #### A CET, SALYC #### [facility] [address] [place] [address] Dr. Ibis Jimenez MCH (RBC) [Entitic mass] 28.8 pg Normal 26.7-34.0 [facility] [place] Comment on above: Performed By: #### A CET, SALYC #### [facility] [address] [place] [address] Dr. Ibis Jimenez MCHC (RBC) [Mass/Vol] 33.8 g/dL Normal 29.9-35.2 [facility] [place] Comment on above: Performed By: #### A CET, SALYC #### [facility] [address] [place] [address] Dr. Ibis Jimenez MCV (RBC) [Entitic vol] 85.2 fL Normal 81.0-99.0 [facility] Comment on above: Performed By: #### A CET, SALYC #### [facility] [address] [place] [address] Dr. Ibis Jimenez MONO # 0.8 103/ul Normal 0.3-0.8 [facility] [place] Comment on above: Performed By: #### A CET, SALYC #### [facility] [address] [place] [address] Dr. Ibis Jimenez Monocytes/100 WBC (Bld) 7.7 % Normal 1.7-12.0 [facility] Comment on above: Performed By: #### A CET, SALYC #### [facility] [address] [place] [address] Dr. Ibis Jimenez NEUT # 7.4 103/ul Critically high 1.4-6.5 [facility] Comment on above: Performed By: #### A CET, SALYC #### [facility] [address] [place] [address] Dr. Ibis Jimenez Neutrophils/100 WBC (Bld) 67.4 % Normal 43.0-75.0 [facility] [place] Comment on above: Performed By: #### A CET, SALYC #### [facility] [address] [place] [address] Dr. Ibis Jimenez Platelet mean volume (Bld) [Entitic vol] 9.8 fL Normal 9.5-13.5 [facility] [place] Comment on above: Performed By: #### A CET, SALYC #### [facility] [address] [place] [address] Dr. Ibis Jimenez PLT 261 103/ul Normal 150-450 [facility] Comment on above: Performed By: #### A CET, SALYC #### [facility] [address] [place] [address] Dr. Ibis Jimenez RBC 4.66 106/ul Normal 4.20-5.40 [facility] [place] Comment on above: Performed By: #### A CET, SALYC #### [facility] [address] [place], [place] [id number] Dr. Ibis Jimenez WBC 10.9 103/ul Normal 4.0-11.0 [facility] [place] Comment on above: Performed By: #### A KORI DAVIS #### [facility] [address] [place] [address] Dr. Ibis Jimenez PROF CHEM 8 (BAS METB)on Anion gap [Moles/Vol] 14.1 mmol/L Normal Th [facility] Comment on above: Performed By: #### B MP #### [facility] [address] [place] [address] Dr. Ibis Jimenez Calcium [Mass/Vol] 8.5 mg/dL Normal 8.5-10.1 [facility] Comment on above: Performed By: #### B MP #### [facility] [address] [place] [address] Dr. Ibis Jimenez Chloride [Moles/Vol] 103 mmol/L Normal 98-107 [facility] [place] Comment on above: Performed By: #### B MP #### [facility] [address] [place] [address] Dr. Ibis Jimenez CO2 [Moles/Vol] 22.5 mmol/L Normal 21.0-32.0 [facility] Comment on above: Performed By: #### B MP #### [facility] [address] [place] [address] Dr. Ibis Jimenez Creatinine [Mass/Vol] 0.64 mg/dL Normal 0.55-1.02 [facility] [place] Comment on above: Performed By: #### B MP #### [facility] [address] [place] [address] Dr. Ibis Jimenez EGFR-AF BURMESE >60 Normal >=60 [facility] Comment on above: Performed By: #### B MP #### [facility] [address] [place] [address] Dr. Ibis Jimenez EGFR-NON AF BURMESE >60 Normal >=60 [facility] [place] Comment on above: Performed By: #### B MP #### [facility] [address] [place] [address] Dr. Ibis Jimenez Glucose [Mass/Vol] 141 mg/dL Critically high 74-106 [facility] Comment on above: Performed By: #### B MP #### [facility] [address] [place] [address] Dr. Ibis Jimenez Potassium [Moles/Vol] 3.6 mmol/L Normal 3.5-5.1 [facility] [place] Comment on above: Performed By: #### B MP #### [facility] [address] [place] [address] Dr. Ibis Jimenez Sodium [Moles/Vol] 136 mmol/L Normal 136-145 [facility] Comment on above: Performed By: #### B MP #### [facility] [address] [place] [address] Dr. Ibis Jimenez Urea nitrogen [Mass/Vol] 16.0 mg/dL Normal 7.0-18.0 [facility] [place] Comment on above: Performed By: #### B MP #### [facility] [address] [place] [address] Dr. Ibis Jimenez Urea nitrogen/Creatinine [Mass ratio] 25.0 mg/mg Normal [facility] [place] Comment on above: Performed By: #### B MP #### [facility] [address] [place] [address] Dr. Iibs Jimenez CBC AUTO DIFFon 11-04-2021 BASO # 0.0 103/ul Normal 0.0-0.1 [facility] [place] Comment on above: Performed By: #### A RYAN SALYC #### [facility] [address] [place] [address] Dr. Ibis Jimenez Basophils/100 WBC (Bld) 0.4 % Normal 0.2-2.0 [facility] Comment on above: Performed By: #### A RYAN SALYC #### [facility] [address] [place] [address] Dr. Ibis Jimenez EO # 0.2 103/ul Normal 0.0-0.7 [facility] [place] Comment on above: Performed By: #### A RYAN SALYC #### [facility] [address] [place] [address] Dr. Ibis Jimenez Eosinophils/100 WBC (Bld) 4.1 % Normal 0.9-7.0 [facility] Comment on above: Performed By: #### A CET, SALYC #### [facility] [address] [place] [address] Dr. Ibis Jimenez Erythrocyte distribution width (RBC) [Ratio] 13.2 % Normal 11.0-15.0 [facility] Comment on above: Performed By: #### A CET, SALYC #### [facility] [address] [place] [address] Dr. Ibis Jimenez Hematocrit (Bld) [Volume fraction] 34.3 % Critically low 36.0-48.0 [facility] Comment on above: Performed By: #### A CET, SALYC #### [facility] [address] [place] [address] Dr. Ibis Jimenez Hemoglobin (Bld) [Mass/Vol] 11.5 g/dL Critically low 12.0-16.0 [facility] [place] Comment on above: Performed By: #### A CET, SALYC #### [facility] [address] [place] [address] Dr. Ibis Jimenez IG # 0.01 10e3/ul Normal 0.00-0.03 [facility] Comment on above: Performed By: #### A CET, SALYC #### [facility] [address] [place] [address] Dr. Ibis Jimenez IG % 0.2 % Normal 0.0-0.5 [facility] Comment on above: Performed By: #### A CET, SALYC #### [facility] [address] [place] [address] Dr. Ibis Jimenez LYMPH # 1.5 103/ul Normal 1.2-3.8 [facility] Comment on above: Performed By: #### A CET, SALYC #### [facility] [address] [place] [address] Dr. Ibis Jimenez Lymphocytes/100 WBC (Bld) 26.4 % Normal 20.5-60.0 [facility] Comment on above: Performed By: #### A CET, SALYC #### [facility] [address] [place] [address] Dr. Ibis Jimenez MANUAL DIFF REQ NO Normal [facility] Comment on above: Performed By: #### A CET, SALYC #### [facility] [address] [place] [address] Dr. Ibis Jimenez MCH (RBC) [Entitic mass] 28.8 pg Normal 26.7-34.0 [facility] [place] Comment on above: Performed By: #### A CET, SALYC #### [facility] [address] [place] [address] Dr. Ibis Jimenez MCHC (RBC) [Mass/Vol] 33.5 g/dL Normal 29.9-35.2 [facility] [place] Comment on above: Performed By: #### A CET, SALYC #### [facility] [address] [place] [address] Dr. Ibis Jimenez MCV (RBC) [Entitic vol] 86.0 fL Normal 81.0-99.0 [facility] Comment on above: Performed By: #### A CET, SALYC #### [facility] [address] [place] [address] Dr. Ibis Jimenez MONO # 0.5 103/ul Normal 0.3-0.8 [facility] [place] Comment on above: Performed By: #### A CET, SALYC #### [facility] [address] [place] [address] Dr. Ibis Jimenez Monocytes/100 WBC (Bld) 8.2 % Normal 1.7-12.0 [facility] Comment on above: Performed By: #### A CET, SALYC #### [facility] [address] [place] [address] Dr. Ibis Jimenez NEUT # 3.4 103/ul Normal 1.4-6.5 [facility] [place] Comment on above: Performed By: #### A CET, SALYC #### [facility] [address] [place] [address] Dr. Ibis Jimenez Neutrophils/100 WBC (Bld) 60.7 % Normal 43.0-75.0 [facility] [place] Comment on above: Performed By: #### A CET, SALYC #### [facility] [address] [address] [address] Ibis Jimenez Platelet mean volume (Bld) [Entitic vol] 9.9 fL Normal 9.5-13.5 [facility] [place] Comment on above: Performed By: #### A CET, SALYC #### [facility] [address] [address] [address] Ibis Jimenez PLT 222 103/ul Normal 150-450 [facility] [place] Comment on above: Performed By: #### A CET, SALYC #### [facility] [address] [address] [address] Ibis Jimenez RBC 3.99 106/ul Critically low 4.20-5.40 [facility] Comment on above: Performed By: #### A CET, SALYC #### [facility] [address] [place] [address] Dr. Ibis Jimenez WBC 5.6 103/ul Normal 4.0-11.0 [facility] [place] Comment on above: Performed By: #### A CET, SALYC #### [facility] [address] [place] [address] Dr. Ibis Jimenez PROF CHEM 8 (BAS METB)on Anion gap [Moles/Vol] 10.5 mmol/L Normal [facility] Comment on above: Performed By: #### B MP #### [facility] [address] [place] [address] Dr. Ibis Jimenez Calcium [Mass/Vol] 8.8 mg/dL Normal 8.5-10.1 [facility] Comment on above: Performed By: #### B MP #### [facility] [address] [place] [address] Dr. Ibis Jimenez Chloride [Moles/Vol] 105 mmol/L Normal 98-107 [facility] [place] Comment on above: Performed By: #### B MP #### [facility] [address] [place] [address] Dr. Ibis Jimenez CO2 [Moles/Vol] 24.9 mmol/L Normal 21.0-32.0 [facility] Comment on above: Performed By: #### B MP #### [facility] [address] [address] [address] Ibis Jimenez Creatinine [Mass/Vol] 0.71 mg/dL Normal 0.55-1.02 [facility] [place] Comment on above: Performed By: #### B MP #### [facility] [address] [address] [address] Ibis Jimenez EGFR-AF BURMESE >60 Normal >=60 [facility] Comment on above: Performed By: #### B MP #### [facility] [address] [address] [address] Ibis Jimenez EGFR-NON AF BURMESE >60 Normal >=60 [facility] [place] Comment on above: Performed By: #### B MP #### [facility] [address] [place] [address] Dr. Ibis Jimenez Glucose [Mass/Vol] 103 mg/dL Normal 74-106 [facility] Comment on above: Performed By: #### B MP #### [facility] [address] [place] [address] Dr. Ibis Jimenez Potassium [Moles/Vol] 3.4 mmol/L Critically low 3.5-5.1 [facility] [place] Comment on above: Performed By: #### B MP #### [facility] [address] [place] [address] Dr. Ibis Jimenez Sodium [Moles/Vol] 137 mmol/L Normal 136-145 [facility] Comment on above: Performed By: #### B MP #### [facility] [address] [place] [address] Dr. Ibis Jimenez Urea nitrogen [Mass/Vol] 17.0 mg/dL Normal 7.0-18.0 [facility] [place] Comment on above: Performed By: #### B MP #### [facility] [address] [place] [address] Dr. Ibis Jimenez Urea nitrogen/Creatinine [Mass ratio] 23.9 mg/mg Normal [facility] [place] Comment on above: Performed By: #### B MP #### [facility] [address] [address] [address] Ibis Jimenez Basic Metab w/rfx MGon 10-20 (cont.) Normal [facility] Comment on above: Result Comment: Aver age GFR for 20-29 years old: 116 mL/min/1.73sq m Chronic Kidney Disease: <60 mL/min/1.73sq m Kidney failure: <15 mL/min/1.73sq m eGFR calculated using average adult body mass. Additional eGFR calculator available at: http://www.[employer]/multiple_crcl_2011.htm Performed By: #### B MPX #### [address] [address] [employer]: Tavon Nicoel MD Anion gap [Moles/Vol] 10 mmol/L Normal 9-17 [facility] Comment on above: Performed By: #### B MPX #### [address] [address] [employer]: Tavon Nicole MD Calcium [Mass/Vol] 7.8 mg/dL Low 8.6-10.4 [facility] Comment on above: Performed By: #### B MPX #### [address] [address] [employer]: Tavon Nicole MD Chloride [Moles/Vol] 109 mmol/L High 98-107 [facility] Comment on above: Performed By: #### B MPX #### [address] [address] [employer]: Tavon Nicole MD CO2 [Moles/Vol] 20 mmol/L Normal - [facility] Comment on above: Performed By: #### B MPX #### [address] [address] [employer]: Tavon Nicole MD Creatinine [Mass/Vol] 0.45 mg/dL Low 0.50-0.90 [facility] Comment on above: Performed By: #### B MPX #### [address] [address] [employer]: Tavon Nicole MD GFR, Amer >60 Normal >60 [facility] Comment on above: Performed By: #### B MPX #### [address] [address] [employer]: Tavon Nicole MD GFR,non Amer >60 Normal >60 [facility] Comment on above: Performed By: #### B MPX #### [address] [address] [employer]: Tavon Nicole MD Glucose [Mass/Vol] 84 mg/dL Normal 70-99 [facility] Comment on above: Performed By: #### B MPX #### [address] [address] [employer]: Tavon Nicole MD Potassium [Moles/Vol] 4.1 mmol/L Normal 3.7-5.3 [facility] Comment on above: Result Comment: SPEC IMEN SLIGHTLY HEMOLYZED, RESULTS MAY BE ADVERSELY AFFECTED. Performed By: #### B MPX #### [address] [address] [employer]: Tavon Nicole MD Sodium [Moles/Vol] 139 mmol/L Normal 135-144 [facility] Comment on above: Performed By: #### B MPX #### [address] [address] [employer]: Tavon Nicole MD Urea nitrogen [Mass/Vol] 8 mg/dL Normal 6-20 [facility] Comment on above: Performed By: #### B MPX #### [address] [address] [employer]: Tavon Nicole MD Basic Metabolic Panel w/ Ref rossi to MGon 10-20-2021 Anion gap [Moles/Vol] 10 mmol/L 9 - 17 mmol/L [facility] Calcium [Mass/Vol] 7.8 mg/dL Low 8.6 - 10. 4 mg/dL [facility] Chloride [Moles/Vol] 109 mmol/L High 98 - 10 7 mmol/L [facility] CO2 [Moles/Vol] 20 mmol/L 20 - 31 mmol/L [facility] Creatinine [Mass/Vol] 0.45 mg/dL Low 0.5 - 0.9 mg/dL [facility] [place] [facility] GFR >60 60 - PI NF mL/min [facility] GFR Non- >60 60 - PINF mL/min [facility] GFR/1.73 sq M.predicted MDRD (S/P/Bld) [Vol rate/Area] [facility] Comment on above: Average GFR for 20-2 9 years old: 116 mL/min/1.73sq m Chronic Kidney Disease: <60 mL/min/1.73sq m Kidney failure: <15 mL/min/1.73sq m eGFR calculated using average adult body mass. Additional eGFR calculator available at: http://www.[employer]/multiple_crcl_2012.htm Glucose [Mass/Vol] 84 mg/dL 70 - 99 mg/dL [facility] Interpretation and review of laboratory results Abnormal [facility] Potassium [Moles/Vol] 4.1 mmol/L 3.7 - 5.3 mmol/L [facility] Comment on above: SPECIMEN SLIGHTLY HE MOLYZED, RESULTS MAY BE ADVERSELY AFFECTED. Sodium [Moles/Vol] 139 mmol/L 135 - 144 mmol/L [facility]ITANCongo [facility] Management[facility] Urea nitrogen (BldV) [Mass/Vol] 8 mg/dL 6 - 20 mg/dL [facility] CBC with Auto Differentialon 10-20-2021 Absolute Eos # 0.15 [facility] Aere[employer] Absolute Immature Granulocyte [facility] Absolute Lymph # 1.48 [facility] Absolute Mcleod # 0.28 [facility] Basophils (Bld) [#/Vol] 0.03 10*3/uL [facility] Basophils/100 WBC (Bld) 1 % 0 - 2 % B ON [facility] Eosinophils/100 WBC (Bld) 3 % 1 - 4 % [facility] Hematocrit (Bld) [Volume fraction] 35.5 % Low 36.3 - 47.1 % [facility] Hemoglobin (Bld) [Mass/Vol] 11.3 g/dL Low 11.9 - 15.1 g/dL [facility] Immature granulocytes/100 WBC (Bld) 0 % 0 [facility] Interpretation and review of laboratory results Abnormal [facility] Lymphocytes/100 WBC (Bld) 34 % 24 - 43 % [facility] MCH (RBC) [Entitic mass] 27.9 pg 25.2 - 33.5 pg [facility] MCHC (RBC) [Mass/Vol] 31.8 g/dL 28.4 - 34.8 g/dL [facility] MCV (RBC) [Entitic vol] 87.7 fL 82.6 - 102.9 fL [facility] Monocytes/100 WBC (Bld) 6 % 3 - 12 % B ON [facility] NRBC Automated 0.0 0.0 per 100 WBC [facility] Platelet distribution width (Bld) [Ratio] 12.9 % 11.8 - 14.4 % [facility] Platelets (Bld) [#/Vol] See Reflexed IPF Result [facility] RBC (Bld) [#/Vol] 4.05 10*6/uL 3.95 - 5.1 1 m/uL [facility] Segmented neutrophils/100 WBC (Bld) 55 % 36 - 65 % [facility] Segs Absolute 2.42 [facility] WBC (Bld) [#/Vol] 4.4 10*3/uL [facility] CBC with Diffon 10-20-2021 Abs. Basophil 0.03 k/uL Normal 0.00-0.20 [facility] Comment on above: Performed By: #### C DP, IPF #### [address] [id number] [employer] Manager [employer]: Tavon Nicole MD Abs.Imm.Granulocyte <0.03 Normal 0.00-0.30 [facility] Comment on above: Performed By: #### C DP, IPF #### [address] [address] [employer]: Tavon Nicole MD Abs.Neutrophil (Seg) 2.42 k/uL Normal 1.50-8.10 [facility] Comment on above: Performed By: #### C DP, IPF #### [address] [address] [employer] Manager [employer]: Tavon Nicole MD Basophils/100 WBC (Bld) 1 % Normal 0-2 [facility] Comment on above: Performed By: #### C DP, IPF #### [address] [address] [employer]: Tavon Nicole MD Eosinophils (Bld) [#/Vol] 0.15 10*3/uL Normal 0.00-0.44 [facility] Comment on above: Performed By: #### C DP, IPF #### [address] [address] [employer]: Tavon Nicole MD Eosinophils/100 WBC (Bld) 3 % Normal 1-4 [facility] Comment on above: Performed By: #### C DP, IPF #### [address] [address] [employer]: Tavon Nicole MD Erythrocyte distribution width (RBC) [Ratio] 12.9 % Normal 11.8-14.4 [facility] Comment on above: Performed By: #### C DP, IPF #### [address] [address] [employer]: Tavon Nicole MD Hematocrit (Bld) [Volume fraction] 35.5 % Low 36.3-47.1 [facility] Comment on above: Performed By: #### C DP, IPF #### [address] [address] [employer]: Tavon Nicole MD Hemoglobin (Bld) [Mass/Vol] 11.3 g/dL Low 11.9-15.1 [facility] Comment on above: Performed By: #### C DP, IPF #### [address] [address] Engineering Manager Electronics: Tvaon Nicole MD Immature granulocytes/100 WBC (Bld) 0 % Normal 0 [facility] Comment on above: Performed By: #### C DP, IPF #### [address] [address] Engineering Manager Electronics: Tavon Nicole MD Lymphocytes (Bld) [#/Vol] 1.48 10*3/uL Normal 1.10-3.70 [facility] Comment on above: Performed By: #### C DP, IPF #### [address] [address] Engineering Manager Electronics: Tavon Nicole MD Lymphocytes/100 WBC (Bld) 34 % Normal 24-43 [facility] Comment on above: Performed By: #### C DP, IPF #### [address] [id number] Engineering Manager Electronics: Tavon Nicole MD MCH (RBC) [Entitic mass] 27.9 pg Normal 25.2-33.5 [facility] Comment on above: Performed By: #### C DP, IPF #### [address] [address] Engineering Manager Electronics: Tavon Nicole MD MCHC (RBC) [Mass/Vol] 31.8 g/dL Normal 28.4-34.8 [facility] Comment on above: Performed By: #### C DP, IPF #### [address] [address] Engineering Manager Electronics: Tavon Nicole MD MCV (RBC) [Entitic vol] 87.7 fL Normal 82.6-102.9 [facility] Comment on above: Performed By: #### C DP, IPF #### [address] [address] Engineering Manager Electronics: Tavon Nicole MD Monocytes (Bld) [#/Vol] 0.28 10*3/uL Normal 0.10-1.20 [facility] Comment on above: Performed By: #### C DP, IPF #### [place] [address] Engineering Manager [employer]: Tavon Nicole MD Monocytes/100 WBC (Bld) 6 % Normal 3-[address] [facility] Comment on above: Performed By: #### C DP, IPF #### [address] [address] Engineering Manager Electronics: Tavon Nicole MD Neutrophil (Seg) 55 % Normal 36-65 [facility] Comment on above: Performed By: #### C DP, IPF #### [place] [address] Engineering Manager Electronics: Tavon Nicole MD NRBC Automated 0.0 per 100 WBC Normal 0.0 [facility] Comment on above: Performed By: #### C DP, IPF #### [address] [address] Engineering Manager Electronics: Tavon Nicole MD Platelet Count See Reflexed IPF Result Normal 138-453 [facility] Comment on above: Performed By: #### C DP, IPF #### [address], [place] [phone] Engineering Manager Electronics: Tavon Nicole MD RBC (Bld) [#/Vol] 4.05 10*6/uL Normal 3.95-5.11 [facility] Comment on above: Performed By: #### C DP, IPF #### [address] [phone] Engineering Manager Electronics: Tavon Nicole MD WBC (Bld) [#/Vol] 4.4 10*3/uL Normal 3.5-11.3 [facility] Comment on above: Performed By: #### C DP, IPF #### [address] [phone] Engineering Manager Electronics: Tavon Nicole MD EEG video monitoringon 10-20 Raiza Land MD 10/20/2021 12:11 PM Referring physician: Chris Blanchard APRN Date:10/20/2021 Start Time:10/19/2021 @1258 End Time: 10/20/2021 @ 1200 Indication Patient with recurrent events Introduction This continuous video-EEG was acquired using a [employer] workstation at 256 samples/s. Electrodes were placed [...] Board Certified. Neurology Board Certified. Electronically Signed [facility] Work Phone: EEG video monitoringOrdered By: Raiza Land on 10-20-2021 [facility] [employer] Work Phone: Immature Platelet Fractionon 10-20-2021 Platelet, Fluorescence Platelet clumps present, count appears adequate. [facility] No Panel Informationon 10-20 [facility]T, Immature Fract.on 10-20 Platelet, Fluoresc. Platelet clumps present, count appears adequate. Normal 138-453 [facility] Comment on above: Performed By: #### C DP, IPF #### [facility] [address] [place] [phone] Engineering Manager Electronics: Tavon Nicole MD PROLACTINon 10-20-2021 Prolactin 41.7 ng/mL Critically high 4.8-23.3 [facility] Comment on above: Performed By: #### C VDTBH #### [facility] [address] [address] [address] Ibis Jimenez CBCon 10-19-2021 Erythrocyte distribution width (RBC) [Ratio] 12.9 % Normal 11.8-14.4 [facility] Comment on above: Performed By: #### T ROPI LACTIC, CMPX, CBC #### [facility] [place], [place] [phone] Engineering Manager Electronics: Tavon Nicole MD Hematocrit (Bld) [Volume fraction] 31.5 % Low 36.3 - 47.1 % [facility] Hematocrit (Bld) [Volume fraction] 31.5 % Low 36.3-47.1 [facility] Comment on above: Performed By: #### T ROPI LACTIC, CMPX, CBC #### [facility] [address] [place] [phone] Engineering Manager Electronics: Tavon Nicole MD Hemoglobin (Bld) [Mass/Vol] 10.8 g/dL Low 11.9 - 15.1 g/dL [facility] Hemoglobin (Bld) [Mass/Vol] 10.8 g/dL Low 11.9-15.1 [facility] Comment on above: Performed By: #### T ROPI LACTIC, CMPX, CBC #### [facility] [address] [place] [phone] Engineering Manager Electronics: Tavon Nicole MD MCH (RBC) [Entitic mass] 29.1 pg 25.2 - 33.5 pg [facility] MCH (RBC) [Entitic mass] 29.1 pg Normal 25.2-33.5 [facility] Comment on above: Performed By: #### T ROPI LACTIC, CMPX, CBC #### [facility] [address] [place] [phone] Engineering Manager Electronics: Tavon Nicole MD MCHC (RBC) [Mass/Vol] 34.3 g/dL 28.4 - 34.8 g/dL [facility] MCHC (RBC) [Mass/Vol] 34.3 g/dL Normal 28.4-34.8 [facility] Comment on above: Performed By: #### T ROPI LACTIC, CMPX, CBC #### [facility] [address] [place] [phone] Engineering Manager Electronics: Tavon Nicole MD MCV (RBC) [Entitic vol] 84.9 fL 82.6 - 102.9 fL [facility] MCV (RBC) [Entitic vol] 84.9 fL Normal 82.6-102.9 [facility] Comment on above: Performed By: #### T ROPI, LACTIC, CMPX, CBC #### [facility] [address] [place] [phone] Engineering Manager Electronics: Tavon Nicole MD NRBC Automated 0.0 0.0 per 100 WBC [facility] NRBC Automated 0.0 per 100 WBC Normal 0.0 [facility] Comment on above: Performed By: #### T BRETT LACTIC, CMPX, CBC #### [facility] [address] [place], [place] [phone] Engineering Manager Electronics: Tavon Nicole MD Platelet distribution width (Bld) [Ratio] 12.9 % 11.8 - 14.4 % [facility] Platelet mean volume (Bld) [Entitic vol] 9.8 fL 8.1 - 13.5 fL [facility] Platelet mean volume (Bld) [Entitic vol] 9.8 fL Normal 8.1-13.5 [facility] Comment on above: Performed By: #### T BRETT LACTIC, CMPX, CBC #### [facility] [address] [place], [place] [phone] Engineering Manager Electronics: Tavon Nicole MD Platelets (Bld) [#/Vol] 281 10*3/uL [facility] Platelets (Bld) [#/Vol] 281 10*3/uL Normal 138-453 [facility] Comment on above: Performed By: #### T BRETT LACTIC, CMPX, CBC #### [facility] [address] [place], [place] [phone] Engineering Manager Electronics: Tavon Nicole MD RBC (Bld) [#/Vol] 3.71 10*6/uL Low 3.95 - 5.1 1 m/uL [facility] RBC (Bld) [#/Vol] 3.71 10*6/uL Low 3.95-5.11 [facility] Comment on above: Performed By: #### T BRETT LACTIC, CMPX, CBC #### [facility] [address] [place], [place] [phone] Engineering Manager Electronics: Tavon Nicole MD WBC (Bld) [#/Vol] 5.0 10*3/uL [facility] WBC (Bld) [#/Vol] 5.0 10*3/uL Normal 3.5-11.3 [facility] Comment on above: Performed By: #### T ROPI LACTIC, CMPX, CBC #### [facility] [address] [place] [address] Engineering Manager Electronics: Tavon Nicole MD CBC AUTO DIFFon 10-19-2021 BASO # 0.0 103/ul Normal 0.0-0.1 [facility] Comment on above: Performed By: #### A MM #### [facility] [address] [place] [address] Dr. Ibis Jimenez Performed By: #### C VDTBH #### [facility] [address] [place] [address] Dr. Ibis Jimenez Basophils/100 WBC (Bld) 0.6 % Normal 0.2-2.0 [facility] Comment on above: Performed By: #### A MM #### [facility] [address] [place] [address] Dr. Ibis Jimenez Performed By: #### C VDTBH #### [facility] [address] [place] [address] Dr. Ibis Jimenez EO # 0.3 103/ul Normal 0.0-0.7 [facility] Comment on above: Performed By: #### C VDTBH #### [facility] [address] [place] [address] Dr. Ibis Jimenez EO # 0.2 103/ul Normal 0.0-0.7 [facility] Comment on above: Performed By: #### A MM #### [facility] [address] [place] [address] Dr. Ibis Jimenez Eosinophils/100 WBC (Bld) 5.0 % Normal 0.9-7.0 [facility] Comment on above: Performed By: #### C VDTBH #### [facility] [address] [place] [address] Dr. Ibis Jimenez Eosinophils/100 WBC (Bld) 3.9 % Normal 0.9-7.0 [facility] Comment on above: Performed By: #### A MM #### [facility] [address] [place] [address] Dr. Ibis Jimenez Erythrocyte distribution width (RBC) [Ratio] 12.8 % Normal 11.0-15.0 [facility] Comment on above: Performed By: #### C VDTBH #### [facility] [address] [place] [address] Dr. Ibis Jimenez Erythrocyte distribution width (RBC) [Ratio] 13.1 % Normal 11.0-15.0 [facility] Comment on above: Performed By: #### A MM #### [facility] [address] [place] [address] Dr. Ibis Jimenez Hematocrit (Bld) [Volume fraction] 38.0 % Normal 36.0-48.0 [facility] Comment on above: Performed By: #### C VDTBH #### [facility] [address] [place] [address] Dr. Ibis Jimenez Hematocrit (Bld) [Volume fraction] 33.4 % Critically low 36.0-48.0 [facility] Comment on above: Performed By: #### A MM #### [facility] [address] [place] [address] Dr. Ibis Jimenez Hemoglobin (Bld) [Mass/Vol] 12.7 g/dL Normal 12.0-16.0 [facility] Comment on above: Performed By: #### C VDTBH #### [facility] [address] [place] [address] Dr. Ibis Jimenez Hemoglobin (Bld) [Mass/Vol] 11.1 g/dL Critically low 12.0-16.0 [facility] Comment on above: Performed By: #### A MM #### [facility] [address] [place] [address] Dr. Ibis Jimenez IG # 0.02 10e3/ul Normal 0.00-0.03 [facility] Comment on above: Performed By: #### A MM #### [facility] [address] [place] [address] Dr. Ibis Jimenez Performed By: #### C VDTBH #### [facility] [address] [place] [address] Dr. Ibis Jimenez IG % 0.4 % Normal 0.0-0.5 [facility] Comment on above: Performed By: #### A MM #### [facility] [address] [place] [address] Dr. Ibis Jimenez Performed By: #### C VDTBH #### [facility] [address] [place] [address] Dr. Ibis Jimenez LYMPH # 1.7 103/ul Normal 1.2-3.8 [facility] Comment on above: Performed By: #### C VDTBH #### [facility] [address] [place] [address] Dr. Ibis Jimenez LYMPH # 1.2 103/ul Normal 1.2-3.8 [facility] Comment on above: Performed By: #### A MM #### [facility] [address] [place] [address] Dr. Ibis Jimenez Lymphocytes/100 WBC (Bld) 30.7 % Normal 20.5-60.0 [facility] Comment on above: Performed By: #### C VDTBH #### [facility] [address] [place] [address] Dr. Ibis Jimenez Lymphocytes/100 WBC (Bld) 25.9 % Normal 20.5-60.0 [facility] Comment on above: Performed By: #### A MM #### [facility] [address] [place] [address] Dr. Ibis Jimenez MANUAL DIFF REQ NO Normal [facility] Comment on above: Performed By: #### A MM #### [facility] [address] [place] [address] Dr. Ibis Jimenez Performed By: #### C VDTBH #### [facility] [address] [place] [address] Dr. Ibis Jimenez MCH (RBC) [Entitic mass] 28.5 pg Normal 26.7-34.0 [facility] Comment on above: Performed By: #### A MM #### [facility] [address] [place] [address] Dr. Ibis Jimenez Performed By: #### C VDTBH #### [facility] [address] [place] [address] Dr. Ibis Jimenez MCHC (RBC) [Mass/Vol] 33.4 g/dL Normal 29.9-35.2 [facility] Comment on above: Performed By: #### C VDTBH #### [facility] [address] [place] [address] Dr. Ibis Jimenez MCHC (RBC) [Mass/Vol] 33.2 g/dL Normal 29.9-35.2 [facility] Comment on above: Performed By: #### A MM #### [facility] [address] [place] [address] Dr. Ibis Jimenez MCV (RBC) [Entitic vol] 85.2 fL Normal 81.0-99.0 [facility] Comment on above: Performed By: #### C VDTBH #### [facility] [address] [place] [address] Dr. Ibis Jimenez MCV (RBC) [Entitic vol] 85.9 fL Normal 81.0-99.0 [facility] Comment on above: Performed By: #### A MM #### [facility] [address] [place] [address] Dr. Ibis Jimenez MONO # 0.4 103/ul Normal 0.3-0.8 [facility] Comment on above: Performed By: #### A MM #### [facility] [address] [place] [address] Dr. Ibis Jimenez Performed By: #### C VDTBH #### [facility] [address] [place] [address] Dr. Ibis Jimenez Monocytes/100 WBC (Bld) 8.1 % Normal 1.7-12.0 [facility] Comment on above: Performed By: #### C VDTBH #### [facility] [address] [place] [address] Dr. Ibis Jimenez Monocytes/100 WBC (Bld) 7.7 % Normal 1.7-12.0 [facility] Comment on above: Performed By: #### A MM #### [facility] [address] [place] [address] Dr. Ibis Jimenez NEUT # 3.0 103/ul Normal 1.4-6.5 [facility] Comment on above: Performed By: #### C VDTBH #### [facility] [address] [place] [address] Dr. Ibis Jimenez NEUT # 2.9 103/ul Normal 1.4-6.5 [facility] Comment on above: Performed By: #### A MM #### [facility] [address] [place] [address] Dr. Ibis Jimenez Neutrophils/100 WBC (Bld) 55.2 % Normal 43.0-75.0 [facility] Comment on above: Performed By: #### C VDTBH #### [facility] [address] [place] [address] Dr. Ibis Jimenez Neutrophils/100 WBC (Bld) 61.5 % Normal 43.0-75.0 [facility] Comment on above: Performed By: #### A MM #### [facility] [address] [place] [address] Dr. Ibis Jimenez Platelet mean volume (Bld) [Entitic vol] 9.5 fL Normal 9.5-13.5 [facility] Comment on above: Performed By: #### A MM #### [facility] [address] [place] [address] Dr. Ibis Jimenez Performed By: #### C VDTBH #### [facility] [address] [place] [address] Dr. Ibis Jimenez PLT 343 103/ul Normal 150-450 [facility] Comment on above: Performed By: #### C VDTBH #### [facility] [address] [place] [address] Dr. Ibis Jimenez PLT 264 103/ul Normal 150-450 [facility] Comment on above: Performed By: #### A MM #### [facility] [address] [place] [address] Dr. Ibis Jimenez RBC 4.46 106/ul Normal 4.20-5.40 [facility] Comment on above: Performed By: #### C VDTBH #### [facility] [address] [place] [address] Dr. Ibis Jimenez RBC 3.89 106/ul Critically low 4.20-5.40 [facility] Comment on above: Performed By: #### A MM #### [facility] [address] [place] [address] Dr. Ibis Jimenez WBC 5.4 103/ul Normal 4.0-11.0 [facility] Comment on above: Performed By: #### C VDTBH #### [facility] [address] [place] [address] Dr. Ibis Jimenez WBC 4.7 103/ul Normal 4.0-11.0 [facility] Comment on above: Performed By: #### A MM #### [facility] [address] [place] [address] HEAD WO CONon [...] by: LOPEZ REYNOLDS Date: 2021-10-19 07:31 Normal [facility] Comp Metabolic Pr/rfx MGon 0 10-19-2021 (cont.) Normal [facility] Comment on above: Result Comment: Aver age GFR for 20-29 years old: 116 mL/min/1.73sq m Chronic Kidney Disease: <60 mL/min/1.73sq m Kidney failure: <15 mL/min/1.73sq m eGFR calculated using average adult body mass. Additional eGFR calculator available at: http://www.[employer]/multiple_crcl_2012.htm Performed By: #### T ROPI, LACTIC, CMPX, CBC #### [facility] [address] [place] [phone] Engineering Manager Electronics: Tavon Nicole MD Albumin [Mass/Vol] 3.5 g/dL Normal 3.5-5.2 [facility] Comment on above: Performed By: #### T ROPI, LACTIC, CMPX, CBC #### [facility] [address] [place] [phone] Engineering Manager Electronics: Tavon Nicole MD Albumin/Glob Ratio 1.4 Normal 1.0-2.5 [facility] Comment on above: Performed By: #### T ROPI, LACTIC, CMPX, CBC #### [facility] [address] [place] [phone] Engineering Manager Electronics: Tavon Nicole MD Alkaline Phos 69 U/L Normal 35-104 [facility] Comment on above: Performed By: #### T ROPI, LACTIC, CMPX, CBC #### [facility] [address] [place] [phone] Engineering Manager Electronics: Tavon Nicole MD ALT [Catalytic activity/Vol] 15 U/L Normal 5-33 [facility] Comment on above: Performed By: #### T ROPI, LACTIC, CMPX, CBC #### [facility] [address] [place] [phone] Engineering Manager Electronics: Tavon Nicole MD Anion gap [Moles/Vol] 13 mmol/L Normal 9-17 [facility] Comment on above: Performed By: #### T ROPI, LACTIC, CMPX, CBC #### [facility] [address] [place] [phone] Engineering Manager Electronics: Tavon Nicole MD AST [Catalytic activity/Vol] 12 U/L Normal <32 [facility] Comment on above: Performed By: #### T ROPI, LACTIC, CMPX, CBC #### [facility] [address] [place] [phone] Engineering Manager Electronics: Tavon Nicole MD Bilirubin [Mass/Vol] 0.24 mg/dL Low 0.3-1.2 [facility] Comment on above: Performed By: #### T ROPI, LACTIC, CMPX, CBC #### [facility] [address] [place] [phone] Engineering Manager Electronics: Tavon Nicole MD Calcium [Mass/Vol] 8.1 mg/dL Low 8.6-10.4 [facility] Comment on above: Performed By: #### T ROPI, LACTIC, CMPX, CBC #### [facility] [address] [place] [phone] Engineering Manager Electronics: Tavon Nicole MD Chloride [Moles/Vol] 107 mmol/L Normal 98-107 [facility] Comment on above: Performed By: #### T ROPI, LACTIC, CMPX, CBC #### [facility] [address] [place] [phone] Engineering Manager Electronics: Tavon Nicole MD CO2 [Moles/Vol] 19 mmol/L Low 20-31 [facility] Comment on above: Performed By: #### T ROPI, LACTIC, CMPX, CBC #### [facility] [address] [place] [phone] Engineering Manager Electronics: Tavon Nicole MD Creatinine [Mass/Vol] 0.53 mg/dL Normal 0.50-0.90 [facility] Comment on above: Performed By: #### T ROPI, LACTIC, CMPX, CBC #### [facility] [address] [place] [phone] Engineering Manager Electronics: Tavon Nicole MD GFR, Amer >60 Normal >60 [facility] Comment on above: Performed By: #### T ROPI, LACTIC, CMPX, CBC #### [facility] [address] [place] [phone] Engineering Manager Electronics: Tavon Nicole MD GFR,non Amer >60 Normal >60 [facility] Comment on above: Performed By: #### T ROPI, LACTIC, CMPX, CBC #### [facility] [address] [place] [phone] Engineering Manager Electronics: Tavon Nicole MD Glucose [Mass/Vol] 81 mg/dL Normal 70-99 [facility] Comment on above: Performed By: #### T ROPI, LACTIC, CMPX, CBC #### [facility] [address] [place] [phone] Engineering Manager Electronics: Tavon Nicole MD Potassium [Moles/Vol] 3.9 mmol/L Normal 3.7-5.3 [facility] Comment on above: Performed By: #### T ROPI, LACTIC, CMPX, CBC #### [facility] [address] [place] [phone] Engineering Manager Electronics: Tavon Nicole MD Protein [Mass/Vol] 6.0 g/dL Low 6.4-8.3 [facility] Comment on above: Performed By: #### T ROPI, LACTIC, CMPX, CBC #### [facility] [address] [place] [phone] Engineering Manager Electronics: Tavon Nicole MD Sodium [Moles/Vol] 139 mmol/L Normal 135-144 [facility] Comment on above: Performed By: #### T ROPI, LACTIC, CMPX, CBC #### [facility] [address] [place] [phone] Engineering Manager Electronics: Tavon Nicole MD Urea nitrogen [Mass/Vol] 10 mg/dL Normal 6-20 [facility] Comment on above: Performed By: #### T ROPI, LACTIC, CMPX, CBC #### [facility] [address] [place] [address] Engineering Manager Electronics: Tavon Nicole MD Comprehensive Metabolic Pane l w/ Reflex to MGon 10-19-2021 Albumin [Mass/Vol] 3.5 g/dL 3.5 - 5.2 g/dL [facility] Albumin/Globulin [Mass ratio] 1.4 {ratio} 1 - 2.5 [facility] ALP (Bld) [Catalytic activity/Vol] 69 U/L 35 - 104 U/L [facility] ALT [Catalytic activity/Vol] 15 U/L 5 - 33 U/L [facility] Anion gap [Moles/Vol] 13 mmol/L 9 - 17 mmol/L [facility] AST [Catalytic activity/Vol] 12 U/L NINF - 32 U/L [facility] Bilirubin [Mass/Vol] 0.24 mg/dL Low 0.3 - 1 .2 mg/dL [facility] Calcium [Mass/Vol] 8.1 mg/dL Low 8.6 - 10. 4 mg/dL [facility] Chloride [Moles/Vol] 107 mmol/L 98 - 10 7 mmol/L [facility] CO2 [Moles/Vol] 19 mmol/L Low 20 - 31 mmol/L [facility] Creatinine [Mass/Vol] 0.53 mg/dL 0.5 - 0.9 mg/dL [facility] Free PSA/Total PSA [Mass fraction] 6.0 g/dL Low 6.4 - 8.3 g/dL [facility] GFR >60 60 - PI NF mL/min [facility] GFR Non- >60 60 - PINF mL/min [facility] GFR/1.73 sq M.predicted MDRD (S/P/Bld) [Vol rate/Area] [facility] Comment on above: Average GFR for 20-2 9 years old: 116 mL/min/1.73sq m Chronic Kidney Disease: <60 mL/min/1.73sq m Kidney failure: <15 mL/min/1.73sq m eGFR calculated using average adult body mass. Additional eGFR calculator available at: http://www.[employer]/multiple_crcl_2012.htm Glucose [Mass/Vol] 81 mg/dL 70 - 99 mg/dL [facility] Potassium [Moles/Vol] 3.9 mmol/L 3.7 - 5.3 mmol/L [facility] Sodium [Moles/Vol] 139 mmol/L 135 - 144 mmol/L [facility] Urea nitrogen (BldV) [Mass/Vol] 10 mg/dL 6 - 20 mg/dL [facility] Covid-19 PCR (CVDTBH)on 09-22 SARS-CoV-2 (COVID-19) RNA SAURABH+probe Ql (Unsp spec) Not detected Normal NOT DETECTED [facility] Comment on above: Result Comment: [...] for this test is supported by the Med Admin of Health and Human Service's declaration that [...] used). Performed By: #### C VDTBH #### [facility] [address] [place] [id number] [address] Ibis Jimenez DRUG SCREEN RAPID (URINE)on 10-19-2021 AMP Negative Normal NEGATIVE [facility] Comment on above: Performed By: #### B MP #### [facility] [address] [address] [address] Ibis Jimenez BAR Positive Abnormal NEGATIVE [facility] Comment on above: Performed By: #### B MP #### [facility] [address] [place] [address] Dr. Ibis Jimenez BUP Negative Normal NEGATIVE [facility] Comment on above: Performed By: #### B MP #### [facility] [address] [place] [address] Dr. Ibis Jimenez BZO Positive Abnormal NEGATIVE [facility] Comment on above: Performed By: #### B MP #### [facility] [address] [place] [address] Dr. Ibis Jimenez SEMAJ Negative Normal NEGATIVE [facility] Comment on above: Performed By: #### B MP #### [facility] [address] [place] [address] Dr. Ibis Jimenez CUT-OFFS SEE BELOW Normal [facility] Comment on above: Result Comment: AMP (Amphetamine): 500ng/mL, BAR (Barbituates): 200 ng/mL, BZO (Benzodiazepines): 150 ng/mL, BUP (Buprenorphine): 10 ng/mL, SEMAJ (Cocaine): 150 ng/mL, mAMP (Methamphetamine): 500 ng/mL, MTD (Methadone): 200 ng/mL, OPI (Opiates): 100 ng/mL, OXY (Oxycodone): 100 ng/mL, PCP (Phencyclidine): 25 ng/mL, PPX (Propoxyphene): 300 ng/mL, THC (Cannabinoids): 50 ng/mL, TCA (Trycyclic Antidepressants): 300 ng/mL Performed By: #### B MP #### [facility] [address] [place] [address] Dr. Ibis Jimenez DRUG CUT HEADER DRUG CLASS TEST SYSTEM CUT-OFF CONCENTRATIONS ARE FOLLOWS: Normal [facility] Comment on above: Performed By: #### B MP #### [facility] [address] [place] [address] Dr. Ibis Jimenez mAMP Negative Normal NEGATIVE [facility] Comment on above: Performed By: #### B MP #### [facility] [address] [place] [address] Dr. bIis Jimenez MTD Negative Normal NEGATIVE [facility] Comment on above: Performed By: #### B MP #### [facility] [address] [place] [address] Dr. Ibis Jimenez OPI Positive Abnormal NEGATIVE [facility] Comment on above: Performed By: #### B MP #### [facility] [address] [place] [address] Dr. Ibis Jimenez OXY Positive Abnormal NEGATIVE [facility] Comment on above: Performed By: #### B MP #### [facility] [address] [place] [address] Dr. Ibis Jimenez PCP Negative Normal NEGATIVE [facility] Comment on above: Performed By: #### B MP #### [facility] [address] [place] [address] Dr. Ibis Jimenez PPX Negative Normal NEGATIVE [facility] Comment on above: Performed By: #### B MP #### [facility] [address] [place] [address] Dr. Ibis Jimenez TCA Negative Normal NEGATIVE [facility] Comment on above: Performed By: #### B MP #### [facility] [address] [place] [address] Dr. Ibis Jimenez THC Negative Normal NEGATIVE [facility] Comment on above: Performed By: #### B MP #### [facility] [address] [place] [address] Dr. Ibis Jimenez ER URINE PROFILEon 2 Bilirubin Ql (U) Negative Normal NEGATIVE [facility] Comment on above: Performed By: #### B MP #### [facility] [address] [place] [address] Dr. Ibis Jimenez Clarity (U) CLEAR Normal CLEAR [facility] Comment on above: Performed By: #### B MP #### [facility] [address] [place] [address] Dr. Ibis Jimenez Color (U) YELLOW Normal YELLOW [facility] Comment on above: Performed By: #### B MP #### [facility] [address] [place] [address] DrMarisol RODRIGUEZ A micrscopic examination will be performed if indicated. Normal [facility] Comment on above: Performed By: #### B MP #### [facility] [address] [place] [address] Dr. Ibis Jimenez Glucose Ql (U) Negative Normal NEGATIVE [facility] Comment on above: Performed By: #### B MP #### [facility] [address] [place] [address] Dr. Ibis Jimenez Hemoglobin Ql (U) TRACE-INTACT Abnormal NEGATIVE [facility] Comment on above: Performed By: #### B MP #### [facility] [address] [place] [address] Dr. Ibis Jimenez Ketones Ql (U) Negative Normal NEGATIVE [facility] Comment on above: Performed By: #### B MP #### [facility] [address] [place] [address] Dr. Ibis Jimenez LEUKOCYTES Negative Normal NEGATIVE [facility] Comment on above: Performed By: #### B MP #### [facility] [address] [place] [address] Dr. Ibis Jimenez Nitrite Ql (U) Negative Normal NEGATIVE [facility] Comment on above: Performed By: #### B MP #### [facility] [address] [place] [address] Dr. Ibis Jimenez pH (U) 5.5 [pH] Normal 5-9 [facility] Comment on above: Performed By: #### B MP #### [facility] [address] [place] [address] Dr. Ibis Jimenez SPEC GRAVITY >=1.030 Abnormal 1.005-<=1.02 5 [facility] Comment on above: Performed By: #### B MP #### [facility] [address] [place] [address] Dr. Ibis Jimenez UA PROTEIN Negative Normal NEGATIVE/ TRACE [facility] Comment on above: Performed By: #### B MP #### [facility] [address] [place] [address] Dr. Ibis Jimenez UR MICRO IND INDICATED Normal [facility] Comment on above: Performed By: #### B MP #### [facility] [address] [place] [address] Dr. Ibis Jimenez Urobilinogen Qn (U) 0.2 {Dinorah'U}/dL Normal 0.2 - 1. 0 [facility] Comment on above: Performed By: #### B MP #### [facility] [address] [place] [address] Dr. Ibis Jimenez LACTATE/LACTIC ACIDon 2021 Lactate [Moles/Vol] 1.2 mmol/L Normal 0.4-1.[address] [facility] Comment on above: Performed By: #### A MM #### [facility] [address] [place] [address] Dr. Ibis Jimenez Lactic Acidon 10-19-2021 Lactic Acid, Whole Blood 0.9 mmol/L 0.7 - 2.1 mmol/L [facility] Lactic Acid,Whole Bl 0.9 mmol/L Normal 0.7-2.1 [facility] Comment on above: Performed By: #### T ROPI, LACTIC, CMPX, CBC #### [facility] [address] [id number] [employer]: Tavon Nicole MD MONOon 10-19-2021 Monocytes (Bld) [#/Vol] Negative Normal NEGATIVE [facility] Comment on above: Performed By: #### M DAVID #### [facility] [address] [place] [address] Dr. Ibis Jimenez MRI BRAIN W WO [...] Carlos Marks DO 10/19/21 Final result Normal [facility] Radiology Study observation (narrative) JEREMIAH HEATH [facility] [employer] Work Phone: Unremarkable MR brain. [facility] EXAMINATION: MRI OF THE [...] The soft tissues demonstrate no acute abnormality. [facility] Carlos Marks DO - [...] no acute abnormality. IMPRESSION: Unremarkable MR brain. [facility] Work Phone: MRI BRAIN W WO CONTRASTOrder ed By: Carlos Marks on 10-19-2021 [facility] Work Phone: No Panel Informationon 10-19 Interpretation and review of laboratory results Abnormal [facility] PH VENOUS BLOODon 10-19-2021 PCO2 VENOUS 36.6 mmHg Critically low 40.0-52.0 [facility] Comment on above: Performed By: #### B MP #### [facility] [address] [place] [address] Dr. Ibis Jimenez pH VENOUS 7.387 Normal 7.330-7.430 [facility] Comment on above: Performed By: #### B MP #### [facility] [address] [address] [address] Ibis Jimenez PROF CHEM 8 (BAS METB)on Anion gap [Moles/Vol] 11.9 mmol/L Normal [facility] Comment on above: Performed By: #### M DAVID #### [facility] [address] [address] [address] Ibis Jimenez Calcium [Mass/Vol] 9.1 mg/dL Normal 8.5-10.1 [facility] Comment on above: Performed By: #### M DAVID #### [facility] [address] [place] [address] Dr. Ibis Jimenez Chloride [Moles/Vol] 104 mmol/L Normal 98-107 [facility] Comment on above: Performed By: #### M DAVID #### [facility] [address] [place] [address] Dr. Ibis Jimenez CO2 [Moles/Vol] 26.7 mmol/L Normal 21.0-32.0 [facility] Comment on above: Performed By: #### M DAVID #### [facility] [address] [place] [address] Dr. Ibis Jimenez Creatinine [Mass/Vol] 0.78 mg/dL Normal 0.55-1.02 [facility] Comment on above: Performed By: #### M DAVID #### [facility] [address] [place] [address] Dr. Ibis Jimenez EGFR-AF BURMESE >60 Normal >=60 [facility] Comment on above: Performed By: #### M DAVID #### [facility] [address] [place] [address] Dr. Ibis Jimenez EGFR-NON AF BURMESE >60 Normal >=60 [facility] Comment on above: Performed By: #### M DAVID #### [facility] [address] [address] [address] Ibis Jimenez Glucose [Mass/Vol] 96 mg/dL Normal 74-106 [facility] Comment on above: Performed By: #### M DAVID #### [facility] [address] [place] [address] Dr. Ibis Jimenez Potassium [Moles/Vol] 3.6 mmol/L Normal 3.5-5.1 [facility] Comment on above: Performed By: #### M DAVID #### [facility] [address] [place] [address] Dr. Ibis Jimenez Sodium [Moles/Vol] 139 mmol/L Normal 136-145 [facility] Comment on above: Performed By: #### M DAVID #### [facility] [address] [address] [address] Ibis Jimenez Urea nitrogen [Mass/Vol] 14.0 mg/dL Normal 7.0-18.0 [facility] Comment on above: Performed By: #### M DAVID #### [facility] [address] [address] [address] Ibis Jimenez Urea nitrogen/Creatinine [Mass ratio] 17.9 mg/mg Normal [facility] Comment on above: Performed By: #### M DAVID #### [facility] [address] [place] [address] Dr. Ibis Jimenez TSHon 10-19-2021 TSH 1.389 uIU/mL Normal 0.358-3.740 [facility] Comment on above: Performed By: #### A CET, SALYC #### [facility] [address] [place] [address] Dr. Ibis Jimenez Troponinon 10-19-2021 Troponin, High Sens <6 Normal 0-14 [facility] Comment on above: Result Comment: High Sensitivity Troponin values cannot be compared with other Troponin methodologies. Patients with high levels of Biotin oral intake (i.e >5mg/day) may have falsely decreased Troponin levels. Samples collected within 8 hours of biotin intake may require additional information for diagnosis. Performed By: #### T ROPI, LACTIC, CMPX, CBC #### [facility] [address] [place] [id number] [employer] Manager [employer]: Tavon Nicole MD Troponin, High Sensitivity ng/L 0 - 14 ng/L [facility] Comment on above: High Sensitivity Troponin values cannot be compared with other Troponin methodologies. Patients with high levels of Biotin oral intake (i.e >5mg/day) may have falsely decreased Troponin levels. Samples collected within 8 hours of biotin intake may require additional information for diagnosis. URINE MICROSCOPIC ONLYon BACTERIA TRACE Abnormal NONE SEEN [facility] Comment on above: Performed By: #### B MP #### [facility] [address] [place] [address] Dr. Ibis Jimenez Bacteria identified Cx Nom (U) NOT INDICATED Normal [facility] Comment on above: Performed By: #### B MP #### [facility] [address] [place] [address] Dr. Ibis Jimenez CAST NONE SEEN Normal NONE SEEN [facility] Comment on above: Performed By: #### B MP #### [facility] [address] [place] [address] Dr. Ibis Jimenez Crystals LM Nom (Urine sed) NONE SEEN Normal NONE SEEN [facility] Comment on above: Performed By: #### B MP #### [facility] [address] [place] [address] Dr. Ibis Jimenez Epithelial cells LM Ql (Urine sed) RARE Normal NONE SEEN /RARE [facility] Comment on above: Performed By: #### B MP #### [facility] [address] [place] [address] Dr. Ibis Jimenez MUCOUS LARGE Abnormal NONE SEEN [facility] Comment on above: Performed By: #### B MP #### [facility] [address] [place] [address] Dr. Ibis Jimenez RBC 2-5 Abnormal 0-2 [facility] Comment on above: Performed By: #### B MP #### [facility] [address] [place] [address] Dr. Ibis Jimenez WBC 0-2 Abnormal NONE SEEN [facility] Comment on above: Performed By: #### B MP #### [facility] [address] [place] [address] ABD/PELVIS WO CONon [...] JASS LAURENT Date: 2021-10-06 20:08 Normal [facility] ER URINE PROFILEon 2 Bilirubin Ql (U) Negative Normal NEGATIVE [facility] Comment on above: Performed By: #### M DAVID #### [facility] [address] [place] [address] Dr. Ibis Jimenez Clarity (U) CLEAR Normal CLEAR [facility] Comment on above: Performed By: #### M DAVID #### [facility] [address] [place] [address] Dr. Ibis Jimenez Color (U) LT. YELLOW Normal YELLOW [facility] Comment on above: Performed By: #### M DAVID #### [facility] [address] [place] [address] Dr. Ibis RODRIGUEZ A micrscopic examination will be performed if indicated. Normal [facility] Comment on above: Performed By: #### M DAVID #### [facility] [address] [place] [address] Dr. Ibis Jimenez Glucose Ql (U) Negative Normal NEGATIVE [facility] Comment on above: Performed By: #### M DAVID #### [facility] [address] [address] [address] Ibis Jimenez Hemoglobin Ql (U) Negative Normal NEGATIVE [facility] Comment on above: Performed By: #### M DAVID #### [facility] [address] [address] [address] Ibis Jimenez Ketones Ql (U) Negative Normal NEGATIVE [facility] Comment on above: Performed By: #### M DAVID #### [facility] [address] [address] [address] Ibis Jimenez LEUKOCYTES Negative Normal NEGATIVE [facility] Comment on above: Performed By: #### M DAVID #### [facility] [address] [address] [address] Ibis Jimenez Nitrite Ql (U) Negative Normal NEGATIVE [facility] Comment on above: Performed By: #### M DAVID #### [facility] [address] [address] [address] Ibis Jimenez pH (U) 8.0 [pH] Normal 5-9 [facility] Comment on above: Performed By: #### M DAVID #### [facility] [address] [address] [address] Ibis Jimenez SPEC GRAVITY 1.010 Normal 1.005-<=1.02 5 [facility] Comment on above: Performed By: #### M DAVID #### [facility] [address] [address] [address] Ibis Jimenez UA PROTEIN Negative Normal NEGATIVE/ TRACE [facility] Comment on above: Performed By: #### M DAVID #### [facility] [address] [address] [address] Ibis Jimenez UR MICRO IND NOT INDICATED Normal [facility] Comment on above: Performed By: #### M DAVID #### [facility] [address] [place] [address] Dr. Ibis Jimenez Urobilinogen Qn (U) 0.2 {Dinorah'U}/dL Normal 0.2 - 1. 0 [facility] Comment on above: Performed By: #### M DAVID #### [facility] [address] [place] [address] Dr. Ibis MELÉNDEZ URINE PROFILEon 2 Bilirubin Ql (U) Negative Normal NEGATIVE [facility] Comment on above: Performed By: #### C VDTBH #### [facility] [address] [place] [address] Dr. Ibis Jimenez Clarity (U) CLEAR Normal CLEAR [facility] Comment on above: Performed By: #### C VDTBH #### [facility] [address] [place] [address] Dr. Ibis Jimenez Color (U) YELLOW Normal YELLOW [facility] Comment on above: Performed By: #### C VDTBH #### [facility] [address] [place] [address] Dr. Ibis RODRIGUEZ A micrscopic examination will be performed if indicated. Normal [facility] Comment on above: Performed By: #### C VDTBH #### [facility] [address] [place] [address] Dr. Ibis Jimenez Glucose Ql (U) Negative Normal NEGATIVE [facility] Comment on above: Performed By: #### C VDTBH #### [facility] [address] [place] [address] Dr. Ibis Jimenez Hemoglobin Ql (U) Negative Normal NEGATIVE [facility] Comment on above: Performed By: #### C VDTBH #### [facility] [address] [place] [address] Dr. Ibis Jimenez Ketones Ql (U) Negative Normal NEGATIVE [facility] Comment on above: Performed By: #### C VDTBH #### [facility] [address] [place] [address] Dr. Ibis Jimenez LEUKOCYTES Negative Normal NEGATIVE [facility] Comment on above: Performed By: #### C VDTBH #### [facility] [address] [place] [address] Dr. Ibis Jimenez Nitrite Ql (U) Negative Normal NEGATIVE [facility] Comment on above: Performed By: #### C VDTBH #### [facility] [address] [place] [address] Dr. Ibis Jimenez pH (U) 6.0 [pH] Normal 5-9 [facility] Comment on above: Performed By: #### C VDTBH #### [facility] [address] [place] [address] Dr. Ibis Jimenez SPEC GRAVITY 1.025 Normal 1.005-<=1.02 5 [facility] Comment on above: Performed By: #### C VDTBH #### [facility] [address] [place] [address] Dr. Ibis Jimenez UA PROTEIN Negative Normal NEGATIVE/ TRACE [facility] Comment on above: Performed By: #### C VDTBH #### [facility] [address] [place] [address] Dr. Ibis Jimenez UR MICRO IND NOT INDICATED Normal [facility] Comment on above: Performed By: #### C VDTBH #### [facility] [address] [place] [address] Dr. Ibis Jimenez Urobilinogen Qn (U) 0.2 {Dinorah'U}/dL Normal 0.2 - 1. 0 [facility] Comment on above: Performed By: #### C VDTBH #### [facility] [address] [place] [address] Dr. Ibis Jimenez CBC AUTO DIFFon 10-03-2021 BASO # 0.0 103/ul Normal 0.0-0.1 [facility] Comment on above: Performed By: #### B MP #### [facility] [address] [place] [address] Dr. Ibis Jimenez Basophils/100 WBC (Bld) 0.3 % Normal 0.2-2.0 [facility] Comment on above: Performed By: #### B MP #### [facility] [address] [place] [address] Dr. Ibis Jimenez EO # 0.3 103/ul Normal 0.0-0.7 [facility] Comment on above: Performed By: #### B MP #### [facility] [address] [place] [address] Dr. Ibis Jimenez Eosinophils/100 WBC (Bld) 4.1 % Normal 0.9-7.0 [facility] Comment on above: Performed By: #### B MP #### [facility] [address] [place] [address] Dr. Ibis Jimenez Erythrocyte distribution width (RBC) [Ratio] 13.2 % Normal 11.0-15.0 [facility] Comment on above: Performed By: #### B MP #### [facility] [address] [place] [address] Dr. Ibis Jimenez Hematocrit (Bld) [Volume fraction] 35.7 % Critically low 36.0-48.0 [facility] Comment on above: Performed By: #### B MP #### [facility] [address] [place] [address] Dr. Ibis Jimenez Hemoglobin (Bld) [Mass/Vol] 11.6 g/dL Critically low 12.0-16.0 [facility] Comment on above: Performed By: #### B MP #### [facility] [address] [place] [address] Dr. Ibis Jimenez IG # 0.02 10e3/ul Normal 0.00-0.03 [facility] Comment on above: Performed By: #### B MP #### [facility] [address] [place] [address] Dr. Ibis Jimenez IG % 0.3 % Normal 0.0-0.5 [facility] Comment on above: Performed By: #### B MP #### [facility] [address] [place] [address] Dr. Ibis Jimenez LYMPH # 1.5 103/ul Normal 1.2-3.8 [facility] Comment on above: Performed By: #### B MP #### [facility] [address] [place] [address] Dr. Ibis Jimenez Lymphocytes/100 WBC (Bld) 24.3 % Normal 20.5-60.0 [facility] Comment on above: Performed By: #### B MP #### [facility] [address] [place] [address] Dr. Ibis Jimenez MANUAL DIFF REQ NO Normal [facility] Comment on above: Performed By: #### B MP #### [facility] [address] [place] [address] Dr. Ibis Jimenez MCH (RBC) [Entitic mass] 28.9 pg Normal 26.7-34.0 [facility] Comment on above: Performed By: #### B MP #### [facility] [address] [place] [address] Dr. Ibis Jimenez MCHC (RBC) [Mass/Vol] 32.5 g/dL Normal 29.9-35.2 [facility] Comment on above: Performed By: #### B MP #### [facility] [address] [place] [address] Dr. Ibis Jimenez MCV (RBC) [Entitic vol] 89.0 fL Normal 81.0-99.0 [facility] Comment on above: Performed By: #### B MP #### [facility] [address] [place] [address] Dr. Ibis Jimenez MONO # 0.5 103/ul Normal 0.3-0.8 [facility] Comment on above: Performed By: #### B MP #### [facility] [address] [place] [address] Dr. Ibis Jimenez Monocytes/100 WBC (Bld) 7.3 % Normal 1.7-12.0 [facility] Comment on above: Performed By: #### B MP #### [facility] [address] [place] [address] Dr. Ibis Jimenez NEUT # 4.0 103/ul Normal 1.4-6.5 [facility] Comment on above: Performed By: #### B MP #### [facility] [address] [place] [address] Dr. Ibis Jimenez Neutrophils/100 WBC (Bld) 63.7 % Normal 43.0-75.0 [facility] Comment on above: Performed By: #### B MP #### [facility] [address] [address] [address] Ibis Jimenez Platelet mean volume (Bld) [Entitic vol] 9.7 fL Normal 9.5-13.5 [facility] Comment on above: Performed By: #### B MP #### [facility] [address] [address] [address] Ibis Jimenez PLT 237 103/ul Normal 150-450 [facility] Comment on above: Performed By: #### B MP #### [facility] [address] [place] [address] Dr. Ibis Jimenez RBC 4.01 106/ul Critically low 4.20-5.40 [facility] Comment on above: Performed By: #### B MP #### [facility] [address] [place] [address] Dr. Ibis Jimenez WBC 6.3 103/ul Normal 4.0-11.0 [facility] Comment on above: Performed By: #### B MP #### [facility] [address] [place] [address] Dr. Ibis Jimenez LACTATE/LACTIC ACIDon 2021 Lactate [Moles/Vol] 1.2 mmol/L Normal 0.4-1.[address] [facility] Comment on above: Performed By: #### A MM #### [facility] [address] [place] [address] Dr. Ibis Jimenez BUNon 10-02-2021 Urea nitrogen [Mass/Vol] 7.0 mg/dL Normal 7.0-18.0 [facility] Comment on above: Performed By: #### C VDTBH #### [facility] [address] [place] [address] Dr. Ibis Jimenez CBC AUTO DIFFon 10-02-2021 BASO # 0.0 103/ul Normal 0.0-0.1 [facility] Comment on above: Performed By: #### A MM #### [facility] [address] [place] [address] Dr. Ibis Jimenez Basophils/100 WBC (Bld) 0.2 % Normal 0.2-2.0 [facility] Comment on above: Performed By: #### A MM #### [facility] [address] [place] [address] Dr. Ibis Jimenez EO # 0.0 103/ul Normal 0.0-0.7 [facility] Comment on above: Performed By: #### A MM #### [facility] [address] [place] [address] Dr. Ibis Jimenez Eosinophils/100 WBC (Bld) 0.3 % Critically low 0.9-7.0 [facility] Comment on above: Performed By: #### A MM #### [facility] [address] [place] [address] Dr. Ibis Jimenez Erythrocyte distribution width (RBC) [Ratio] 12.7 % Normal 11.0-15.0 [facility] Comment on above: Performed By: #### A MM #### [facility] [address] [place] [address] Dr. Ibis Jimenez Hematocrit (Bld) [Volume fraction] 43.4 % Normal 36.0-48.0 [facility] Comment on above: Performed By: #### A MM #### [facility] [address] [place] [address] Dr. Ibis Jimenez Hemoglobin (Bld) [Mass/Vol] 14.6 g/dL Normal 12.0-16.0 [facility] Comment on above: Performed By: #### A MM #### [facility] [address] [place] [address] Dr. Ibis Jimenez IG # 0.03 10e3/ul Normal 0.00-0.03 [facility] Comment on above: Performed By: #### A MM #### [facility] [address] [place] [address] Dr. Ibis Jimenez IG % 0.3 % Normal 0.0-0.5 [facility] Comment on above: Performed By: #### A MM #### [facility] [address] [place] [address] Dr. Ibis Jimenez LYMPH # 1.2 103/ul Normal 1.2-3.8 [facility] Comment on above: Performed By: #### A MM #### [facility] [address] [place] [address] Dr. Ibis Jimenez Lymphocytes/100 WBC (Bld) 11.6 % Critically low 20.5-60.0 [facility] Comment on above: Performed By: #### A MM #### [facility] [address] [place] [address] Dr. Ibis Jimenez MANUAL DIFF REQ NO Normal [facility] Comment on above: Performed By: #### A MM #### [facility] [address] [place] [address] Dr. Ibis Jimenez MCH (RBC) [Entitic mass] 28.5 pg Normal 26.7-34.0 [facility] Comment on above: Performed By: #### A MM #### [facility] [address] [place] [address] Dr. Ibis Jimenez MCHC (RBC) [Mass/Vol] 33.6 g/dL Normal 29.9-35.2 [facility] Comment on above: Performed By: #### A MM #### [facility] [address] [place] [address] Dr. Ibis Jimenez MCV (RBC) [Entitic vol] 84.6 fL Normal 81.0-99.0 [facility] Comment on above: Performed By: #### A MM #### [facility] [address] [place] [address] Dr. Ibis Jimenez MONO # 0.6 103/ul Normal 0.3-0.8 [facility] Comment on above: Performed By: #### A MM #### [facility] [address] [place] [address] Dr. Ibis Jimenez Monocytes/100 WBC (Bld) 5.9 % Normal 1.7-12.0 [facility] Comment on above: Performed By: #### A MM #### [facility] [address] [place] [address] Dr. Ibis Jimenez NEUT # 8.2 103/ul Critically high 1.4-6.5 [facility] Comment on above: Performed By: #### A MM #### [facility] [address] [place] [address] Dr. Ibis Jimenez Neutrophils/100 WBC (Bld) 81.7 % Critically high 43.0-75.0 [facility] Comment on above: Performed By: #### A MM #### [facility] [address] [place] [address] Dr. Ibis Jimenez Platelet mean volume (Bld) [Entitic vol] 9.8 fL Normal 9.5-13.5 [facility] Comment on above: Performed By: #### A MM #### [facility] [address] [place] [address] Dr. Ibis Jimenez PLT 264 103/ul Normal 150-450 [facility] Comment on above: Performed By: #### A MM #### [facility] [address] [place] [address] Dr. Ibis Jimenez RBC 5.13 106/ul Normal 4.20-5.40 [facility] Comment on above: Performed By: #### A MM #### [facility] [address] [place] [address] Dr. Ibis Jimenez WBC 10.1 103/ul Normal 4.0-11.0 [facility] Comment on above: Performed By: #### A MM #### [facility] [address] [place] [address] Dr. Ibis Jimenez CREATININEon 10-02-2021 Creatinine [Mass/Vol] 0.69 mg/dL Normal 0.55-1.02 [facility] Comment on above: Performed By: #### C VDTBH #### [facility] [address] [place] [address] Dr. Ibis Jimenez EGFR-AF BURMESE >60 Normal >=60 [facility] Comment on above: Performed By: #### C VDTBH #### [facility] [address] [place] [address] Dr. Ibis Jimenez EGFR-NON AF BURMESE >60 Normal >=60 [facility] Comment on above: Performed By: #### C VDTBH #### [facility] [address] [place] [address] Dr. Ibis Jimenez CBC AUTO DIFFon 10-01-2021 BASO # 0.0 103/ul Normal 0.0-0.1 [facility] Comment on above: Performed By: #### A MM #### [facility] [address] [place] [address] Dr. Ibis Jimenez Basophils/100 WBC (Bld) 0.3 % Normal 0.2-2.0 [facility] Comment on above: Performed By: #### A MM #### [facility] [address] [place] [address] Dr. Ibis Jimenez EO # 0.1 103/ul Normal 0.0-0.7 [facility] Comment on above: Performed By: #### A MM #### [facility] [address] [place] [address] Dr. Ibis Jimenez Eosinophils/100 WBC (Bld) 1.9 % Normal 0.9-7.0 [facility] Comment on above: Performed By: #### A MM #### [facility] [address] [place] [address] Dr. Ibis Jimenez Erythrocyte distribution width (RBC) [Ratio] 12.7 % Normal 11.0-15.0 [facility] Comment on above: Performed By: #### A MM #### [facility] [address] [place] [address] Dr. Ibis Jimenez Hematocrit (Bld) [Volume fraction] 38.1 % Normal 36.0-48.0 [facility] Comment on above: Performed By: #### A MM #### [facility] [address] [place] [address] Dr. Ibis Jimenez Hemoglobin (Bld) [Mass/Vol] 12.7 g/dL Normal 12.0-16.0 [facility] Comment on above: Performed By: #### A MM #### [facility] [address] [place] [address] Dr. Ibis Jimenez IG # 0.02 10e3/ul Normal 0.00-0.03 [facility] Comment on above: Performed By: #### A MM #### [facility] [address] [place] [address] Dr. Ibis Jimenez IG % 0.3 % Normal 0.0-0.5 [facility] Comment on above: Performed By: #### A MM #### [facility] [address] [place] [address] Dr. Ibis Jimenez LYMPH # 1.9 103/ul Normal 1.2-3.8 [facility] Comment on above: Performed By: #### A MM #### [facility] [address] [place] [address] Dr. Ibis Jimenez Lymphocytes/100 WBC (Bld) 30.5 % Normal 20.5-60.0 [facility] Comment on above: Performed By: #### A MM #### [facility] [address] [place] [address] Dr. Ibis Jimenez MANUAL DIFF REQ NO Normal [facility] Comment on above: Performed By: #### A MM #### [facility] [address] [place] [address] Dr. Ibis Jimenez MCH (RBC) [Entitic mass] 28.3 pg Normal 26.7-34.0 [facility] Comment on above: Performed By: #### A MM #### [facility] [address] [place] [address] Dr. Ibis Jimenez MCHC (RBC) [Mass/Vol] 33.3 g/dL Normal 29.9-35.2 [facility] Comment on above: Performed By: #### A MM #### [facility] [address] [place] [address] Dr. Ibis Jimenez MCV (RBC) [Entitic vol] 85.0 fL Normal 81.0-99.0 [facility] Comment on above: Performed By: #### A MM #### [facility] [address] [place] [address] Dr. Ibis Jimenez MONO # 0.3 103/ul Normal 0.3-0.8 [facility] Comment on above: Performed By: #### A MM #### [facility] [address] [place] [address] Dr. Ibis Jimenez Monocytes/100 WBC (Bld) 5.2 % Normal 1.7-12.0 [facility] Comment on above: Performed By: #### A MM #### [facility] [address] [place] [address] Dr. Ibis Jimenez NEUT # 3.9 103/ul Normal 1.4-6.5 [facility] Comment on above: Performed By: #### A MM #### [facility] [address] [place] [address] Dr. Ibis Jimenez Neutrophils/100 WBC (Bld) 61.8 % Normal 43.0-75.0 [facility] Comment on above: Performed By: #### A MM #### [facility] [address] [place] [address] Dr. Ibis Jimenez Platelet mean volume (Bld) [Entitic vol] 9.7 fL Normal 9.5-13.5 [facility] Comment on above: Performed By: #### A MM #### [facility] [address] [place] [address] Dr. Ibis Jimenez PLT 255 103/ul Normal 150-450 [facility] Comment on above: Performed By: #### A MM #### [facility] [address] [place] [address] Dr. Ibis Jimenez RBC 4.48 106/ul Normal 4.20-5.40 [facility] Comment on above: Performed By: #### A MM #### [facility] [address] [place] [address] Dr. Ibis Jimenez WBC 6.3 103/ul Normal 4.0-11.0 [facility] Comment on above: Performed By: #### A MM #### [facility] [address] [place] [address] Dr. Ibis Jimenez PREG HCG QUALon 10-01-2021 , QUAL Negative Normal NEGATIVE [facility] Comment on above: Performed By: #### M DAVID #### [facility] [address] [place] [address] Dr. Ibis Jimenez Covid-19 PCR (CVDTBH)on 09-20 SARS-CoV-2 (COVID-19) RNA SAURABH+probe Ql (Unsp spec) Not detected Normal NOT DETECTED [facility] Comment on above: Result Comment: This test is not yet approved or cleared by the [place] FDA. When there are no FDA-approved or cleared tests available, and other criteria are met, FDA can make tests available under an emergency access mechanism called an Emergency Use Authorization (EUA). The EUA for this test is supported by the [employer] of Health and Human Service's (HHS's) declaration [...] SARS-CoV-2. Performed By: #### B MP #### [facility] [address] [address] [address] Ibis Jimenez TYPE AND SCREENon 09-29-2021 TYPE AND SCREEN Negative Normal [facility] Comment on above: Performed By: #### B MP #### [facility] [address] [address] [address] Ibis Jimenez Covid-19 PCR (CVDTB)on SARS-CoV-2 (COVID-19) RNA SAURABH+probe Ql (Unsp spec) Not detected Normal NOT DETECTED [facility] Comment on above: Result Comment: This test is not yet approved or cleared by the [place] FDA. When there are no FDA-approved or cleared tests available, and other criteria are met, FDA can make tests available under an emergency access mechanism called an Emergency Use Authorization (EUA). The EUA for this test is supported by the [place] of Health and Human Service's (HHS's) declaration [...] SARS-CoV-2. Performed By: #### C VDTBH #### [facility] [address] [place] [address] Dr. Ibis Jimenez TYPE AND SCREENon 09-21-2021 TYPE AND SCREEN Negative Normal [facility] Comment on above: Performed By: #### B MP #### [facility] [address] [place] [address] Dr. Ibis Jimenez CHLAMYDIA/GONOCOCCUS SAURABH ( AB/URINE/PAPon 08-17-2021 Chlamydia trachomatis, SAURABH Negative Normal Negative [facility] Comment on above: Performed By: #### A CET, SALYC #### [facility] [address] [place] [address] Dr. Ibis Jimenez Neisseria gonorrhoeae, SAURABH Negative Normal Negative [facility] Comment on above: Performed By: #### A CET, SALYC #### [facility] [address] [place] [address] Dr. Ibis Jimenez CBC AUTO DIFFon 08-14-2021 BASO # 0.0 103/ul Normal 0.0-0.1 [facility] Comment on above: Performed By: #### C VDTBH #### [facility] [address] [place] [address] Dr. Ibis Jimenez Basophils/100 WBC (Bld) 0.3 % Normal 0.2-2.0 [facility] Comment on above: Performed By: #### C VDTBH #### [facility] [address] [place] [address] Dr. Ibis Jimenez EO # 0.2 103/ul Normal 0.0-0.7 [facility] Comment on above: Performed By: #### C VDTBH #### [facility] [address] [place] [address] Dr. Ibis Jimenez Eosinophils/100 WBC (Bld) 2.5 % Normal 0.9-7.0 [facility] Comment on above: Performed By: #### C VDTBH #### [facility] [address] [place] [address] Dr. Ibis Jimenez Erythrocyte distribution width (RBC) [Ratio] 13.0 % Normal 11.0-15.0 [facility] Comment on above: Performed By: #### C VDTBH #### [facility] [address] [place] [address] Dr. Ibis Jimenez Hematocrit (Bld) [Volume fraction] 38.1 % Normal 36.0-48.0 [facility] Comment on above: Performed By: #### C VDTBH #### [facility] [address] [place] [address] Dr. Ibis Jimenez Hemoglobin (Bld) [Mass/Vol] 12.8 g/dL Normal 12.0-16.0 [facility] Comment on above: Performed By: #### C VDTBH #### [facility] [address] [place] [address] Dr. Ibis Jimenez IG # 0.02 10e3/ul Normal 0.00-0.03 [facility] Comment on above: Performed By: #### C VDTBH #### [facility] [address] [place] [address] Dr. Ibis Jimenez IG % 0.3 % Normal 0.0-0.5 [facility] Comment on above: Performed By: #### C VDTBH #### [facility] [address] [place] [address] Dr. Ibis Jimenez LYMPH # 1.5 103/ul Normal 1.2-3.8 [facility] Comment on above: Performed By: #### C VDTBH #### [facility] [address] [place] [address] Dr. Ibis Jimenez Lymphocytes/100 WBC (Bld) 22.5 % Normal 20.5-60.0 [facility] Comment on above: Performed By: #### C VDTBH #### [facility] [address] [place] [address] Dr. Ibis Jimenez MANUAL DIFF REQ NO Normal [facility] Comment on above: Performed By: #### C VDTBH #### [facility] [address] [place] [address] Dr. Ibis Jimenez MCH (RBC) [Entitic mass] 28.6 pg Normal 26.7-34.0 [facility] Comment on above: Performed By: #### C VDTBH #### [facility] [address] [place] [address] Dr. Ibis Jimenez MCHC (RBC) [Mass/Vol] 33.6 g/dL Normal 29.9-35.2 [facility] Comment on above: Performed By: #### C VDTBH #### [facility] [address] [place] [address] Dr. Ibis Jimenez MCV (RBC) [Entitic vol] 85.0 fL Normal 81.0-99.0 [facility] Comment on above: Performed By: #### C VDTBH #### [facility] [address] [place] [address] Dr. Ibis Jimenez MONO # 0.4 103/ul Normal 0.3-0.8 [facility] Comment on above: Performed By: #### C VDTBH #### [facility] [address] [place] [address] Dr. Ibis Jimenez Monocytes/100 WBC (Bld) 6.3 % Normal 1.7-12.0 [facility] Comment on above: Performed By: #### C VDTBH #### [facility] [address] [place] [address] Dr. Ibis Jimenez NEUT # 4.6 103/ul Normal 1.4-6.5 [facility] Comment on above: Performed By: #### C VDTBH #### [facility] [address] [place] [address] Dr. Ibis Jimenez Neutrophils/100 WBC (Bld) 68.1 % Normal 43.0-75.0 [facility] Comment on above: Performed By: #### C VDTBH #### [facility] [address] [place], [place] [address] Dr. Ibis Jimenez Platelet mean volume (Bld) [Entitic vol] 9.8 fL Normal 9.5-13.5 [facility] Comment on above: Performed By: #### C VDTBH #### [facility] [address] [address] [address] Ibis Jimenez PLT 243 103/ul Normal 150-450 [facility] Comment on above: Performed By: #### C VDTBH #### [facility] [address] [place], [place] [address] Dr. Ibis Jimenez RBC 4.48 106/ul Normal 4.20-5.40 [facility] Comment on above: Performed By: #### C VDTBH #### [facility] [id number] Ibis Jimenez WBC 6.7 103/ul Normal 4.0-11.0 [facility] Comment on above: Performed By: #### C VDTBH #### [facility] [address] [place], [place] [address] ABD/PELVIS WO CONon [...] by: NELI COTTO Date: 2021-08-14 18:00 [facility] [facility] URINE PROFILEon 2 Bilirubin Ql (U) SMALL Abnormal NEGATIVE [facility] Comment on above: Performed By: #### B MP #### [facility] [address] [place] [address] Dr. Ibis Jimenez Clarity (U) CLEAR Normal CLEAR [facility] Comment on above: Performed By: #### B MP #### [facility] [address] [place] [address] Dr. Ibis Jimenez Color (U) YELLOW Normal YELLOW [facility] Comment on above: Performed By: #### B MP #### [facility] [address] [place] [address] Dr. Ibis LOZOYAKishan A micrscopic examination will be performed if indicated. Normal [facility] Comment on above: Performed By: #### B MP #### [facility] [address] [place] [address] Dr. Ibis Jimenez Glucose Ql (U) Negative Normal NEGATIVE [facility] Comment on above: Performed By: #### B MP #### [facility] [address] [place] [address] Dr. Ibis Jimenez Hemoglobin Ql (U) SMALL Abnormal NEGATIVE The [facility] Comment on above: Performed By: #### B MP #### [facility] [address] [place] [address] Dr. Ibis Jimenez Ketones Ql (U) TRACE Abnormal NEGATIVE [facility] Comment on above: Performed By: #### B MP #### [facility] [address] [place] [address] Dr. Ibis Jimenez LEUKOCYTES Negative Normal NEGATIVE [facility] Comment on above: Performed By: #### B MP #### [facility] [address] [address] [address] Ibis Jimenez Nitrite Ql (U) Negative Normal NEGATIVE [facility] Comment on above: Performed By: #### B MP #### [facility] [address] [place] [address] Dr. Ibis Jimenez pH (U) 5.5 [pH] Normal 5-9 [facility] Comment on above: Performed By: #### B MP #### [facility] [address] [place] [address] Dr. Ibis Jimenez SPEC GRAVITY >=1.030 Abnormal 1.005-<=1.02 5 [facility] Comment on above: Performed By: #### B MP #### [facility] [address] [place] [address] Dr. Ibis Jimenez UA PROTEIN TRACE Normal NEGATIVE/ TRACE [facility] Comment on above: Performed By: #### B MP #### [facility] [address] [address] [address] Ibis Jimenez UR MICRO IND INDICATED Normal [facility] Comment on above: Performed By: #### B MP #### [facility] [address] [place] [address] Dr. Ibis Jimenez Urobilinogen Qn (U) 1.0 {Dinorah'U}/dL Normal 0.2 - 1. 0 [facility] Comment on above: Performed By: #### B MP #### [facility] [address] [place] [address] Dr. Ibis Jimenez URon 08-14-2021 , QUAL Negative Normal NEGATIVE [facility] Comment on above: Performed By: #### B MP #### [facility] [address] [place] [address] Dr. Ibis Jimenez PROF CHEM 8 (BAS METB)on Anion gap [Moles/Vol] 15.3 mmol/L Normal [facility] Comment on above: Performed By: #### B MP #### [facility] [address] [address] [address] Ibis Jimenez Calcium [Mass/Vol] 8.4 mg/dL Critically low 8.5-10.1 [facility] Comment on above: Performed By: #### B MP #### [facility] [address] [address] [address] Ibis Jimenez Chloride [Moles/Vol] 106 mmol/L Normal 98-107 [facility] Comment on above: Performed By: #### B MP #### [facility] [address] [address] [address] Ibis Jimenez CO2 [Moles/Vol] 22.3 mmol/L Normal 21.0-32.0 [facility] Comment on above: Performed By: #### B MP #### [facility] [address] [place] [address] Dr. Ibis Jimenez Creatinine [Mass/Vol] 0.75 mg/dL Normal 0.55-1.02 [facility] Comment on above: Performed By: #### B MP #### [facility] [address] [address] [address] Ibis Jimenez EGFR-AF BURMESE >60 Normal >=60 [facility] Comment on above: Performed By: #### B MP #### [facility] [address] [address] [address] Ibis Jimenez EGFR-NON AF BURMESE >60 Normal >=60 [facility] Comment on above: Performed By: #### B MP #### [facility] [address] [address] [address] Ibis Jimenez Glucose [Mass/Vol] 107 mg/dL Critically high 74-106 [facility] Comment on above: Performed By: #### B MP #### [facility] [address] [address] [address] Ibis Jimenez Potassium [Moles/Vol] 3.6 mmol/L Normal 3.5-5.1 [facility] Comment on above: Performed By: #### B MP #### [facility] [address] [address] [address] Ibis Jimenez Sodium [Moles/Vol] 140 mmol/L Normal 136-145 [facility] Comment on above: Performed By: #### B MP #### [facility] [address] [place] [address] Dr. Ibis Jimenez Urea nitrogen [Mass/Vol] 13.0 mg/dL Normal 7.0-18.0 [facility] Comment on above: Performed By: #### B MP #### [facility] [address] [place] [address] Dr. Ibis Jimenez Urea nitrogen/Creatinine [Mass ratio] 17.3 mg/mg Normal [facility] Comment on above: Performed By: #### B MP #### [facility] [address] [place] [address] Dr. Ibis Jimenez URINE MICROSCOPIC ONLYon BACTERIA TRACE Abnormal NONE SEEN [facility] Comment on above: Performed By: #### B MP #### [facility] [address] [place] [address] Dr. Ibis Jimenez Bacteria identified Cx Nom (U) NOT INDICATED Normal [facility] Comment on above: Performed By: #### B MP #### [facility] [address] [place] [address] Dr. Ibis Jimenez CAST NONE SEEN Normal NONE SEEN [facility] Comment on above: Performed By: #### B MP #### [facility] [address] [place] [address] Dr. Ibis Jimenez Crystals LM Nom (Urine sed) NONE SEEN Normal NONE SEEN [facility] Comment on above: Performed By: #### B MP #### [facility] [address] [place] [address] Dr. Ibis Jimenez Epithelial cells LM Ql (Urine sed) MANY Abnormal NONE SEEN /RARE [facility] Comment on above: Performed By: #### B MP #### [facility] [address] [place] [address] Dr. Ibis Jimenez MUCOUS SMALL Abnormal NONE SEEN [facility] Comment on above: Performed By: #### B MP #### [facility] [address] [place] [address] Dr. Ibis Jimenez RBC 2-5 Abnormal 0-2 [facility] Comment on above: Performed By: #### B MP #### [facility] [id number] Ibis Jimenez WBC 2-5 Abnormal NONE SEEN The [facility] Comment on above: Performed By: #### B MP #### [facility] [id number] Ibis Jimenez CBC Auto DifferentialOrdered By: Vielka Ching on 12-24-2020 [employer] # 0.[address] [facility] Work Phone: Absolute Immature Granulocyte 0.05 [employer] Work Phone: Absolute Lymph # 2.48 Mayomi [facility] Work Phone: Absolute Mcleod # 0.55 [employer] [facility] Work Phone: Basophils (Bld) [#/Vol] 10*3/uL [employer] Work Phone: Basophils/100 WBC (Bld) 0 % 0 - 2 % [employer] Work Phone: Differential Type NOT REPORTED [employer] Phone: Eosinophils/100 WBC (Bld) 5 % High 1 - 4 % [employer] Work Phone: Hematocrit (Bld) [Volume fraction] 37.4 % 36.3 - 47.1 % [employer] Work Phone: Hemoglobin.gastrointest inal spec 1 Ql (Stl) 12.3 g/dL 11.9 - 15.1 g/dL [employer] Phone: Immature granulocytes/100 WBC (Bld) 1 % High 0 [employer] Work Phone: Lymphocytes/100 WBC (Bld) 30 % 24 - 43 % [employer] Work Phone: MCH (RBC) [Entitic mass] 28.5 pg 25.2 - 33.5 pg [employer] Work Phone: MCHC (RBC) [Mass/Vol] 32.9 g/dL 28.4 - 34.8 g/dL [employer] Phone: MCV (RBC) [Entitic vol] 86.8 fL 82.6 - 102.9 fL [employer] Phone: Monocytes/100 WBC (Bld) 7 % 3 - 12 % [employer] Work Phone: NRBC Automated 0.0 0.0 per 100 WBC [employer] Phone: Platelet distribution width (Bld) [Ratio] 12.7 % 11.8 - 14.4 % [employer] Phone: Platelet Estimate NOT REPORTED [employer] Phone: Platelet mean volume (Bld) [Entitic vol] 9.4 fL 8.1 - 13.5 fL [employer] Phone: Platelets (Bld) [#/Vol] 252 10*3/uL [employer] Phone: RBC (Bld) [#/Vol] 4.31 10*6/uL 3.95 - 5.1 1 m/uL [employer] Phone: RBC (Bld) [#/Vol] NOT REPORTED [employer] Phone: Segmented neutrophils/100 WBC (Bld) 57 % 36 - 65 % [employer] Work Phone: Segs Absolute 4.78 [employer] Work Phone: WBC (Bld) [#/Vol] 8.3 10*3/uL [employer] Phone: WBC (Bld) [#/Vol] NOT REPORTED [employer] Phone: CBC with Diffon 12-24-2020 Abs. Basophil <0.03 Normal 0.00-0.20 [facility] Comment on above: Performed By: #### C MPX, CDP #### [facility] [address] [place], [place] [id number] [employer]: Souleymane Pineda MD Abs.Imm.Granulocyte 0.05 k/uL Normal 0.00-0.30 [facility] Comment on above: Performed By: #### C MPX, CDP #### [facility] [address] [place], [place] [id number] [employer]: Souleymane Pineda MD Abs.Neutrophil (Seg) 4.78 k/uL Normal 1.50-8.[address] [facility] Comment on above: Performed By: #### C MPX, CDP #### [address] [place], [place] [id number] [employer]: Souleymane Pineda MD Auto Diff Performed NOT REPORTED Normal [facility] Comment on above: Performed By: #### C MPX, CDP #### [address] [place], [place] [id number] [employer]: Souleymane Pineda MD Basophils/100 WBC (Bld) 0 % Normal 0-2 [facility] Comment on above: Performed By: #### C MPX, CDP #### [address] [place], [place] [id number] [employer]: Souleymane Pineda MD Eosinophils (Bld) [#/Vol] 0.44 10*3/uL Normal 0.00-0.44 [facility] Comment on above: Performed By: #### C MPX, CDP #### [facility] [address] [place], [place] [id number] [employer]: Souleymane Pineda MD Eosinophils/100 WBC (Bld) 5 % High 1-4 [facility] Comment on above: Performed By: #### C MPX, CDP #### [facility] [address] [place], [place] [id number] [employer]: Souleymane Pineda MD Erythrocyte distribution width (RBC) [Ratio] 12.7 % Normal 11.8-14.4 [facility] Comment on above: Performed By: #### C MPX, CDP #### [facility] [address] [place], [place] [id number] [employer]: Souleymane Pineda MD Hematocrit (Bld) [Volume fraction] 37.4 % Normal 36.3-47.1 [facility] Comment on above: Performed By: #### C MPX, CDP #### [facility] [address] [place], [place] [id number] [employer]: Souleymane Pineda MD Hemoglobin (Bld) [Mass/Vol] 12.3 g/dL Normal 11.9-15.1 [facility] Comment on above: Performed By: #### C MPX, CDP #### [address] [place], [place] [id number] [employer]: Souleymane Pineda MD Immature granulocytes/100 WBC (Bld) 1 % High 0 [facility] Comment on above: Performed By: #### C MPX, CDP #### [address] [place], [place] [id number] [employer]: Souleymane Pineda MD Lymphocytes (Bld) [#/Vol] 2.48 10*3/uL Normal 1.10-3.70 [facility] Comment on above: Performed By: #### C MPX, CDP #### [facility] [address] [place] [address] Dr[address] [place], [place] [id number] [employer]: Souleymane Pineda MD Lymphocytes/100 WBC (Bld) 30 % Normal 24-43 [facility] Comment on above: Performed By: #### C MPX, CDP #### [facility] [address] [place], [place] [id number] [employer]: Souleymane Pineda MD MCH (RBC) [Entitic mass] 28.5 pg Normal 25.2-33.5 [facility] Comment on above: Performed By: #### C MPX, CDP #### [address] [place] [address] [employer]: Souleymane Pineda MD MCHC (RBC) [Mass/Vol] 32.9 g/dL Normal 28.4-34.8 [facility] Comment on above: Performed By: #### C MPX, CDP #### [address] [place] [address] [employer]: Souleymane Pineda MD MCV (RBC) [Entitic vol] 86.8 fL Normal 82.6-102.9 [facility] Comment on above: Performed By: #### C MPX, CDP #### [address] [place] [address] [employer]: Souleymane Pineda MD Monocytes (Bld) [#/Vol] 0.55 10*3/uL Normal 0.10-1.20 [facility] Comment on above: Performed By: #### C MPX, CDP #### [address] [place], [place] [id number] [employer]: Souleymane Pineda MD Monocytes/100 WBC (Bld) 7 % Normal 3-12 [facility] Comment on above: Performed By: #### C MPX, CDP #### [address] [place], [place] [id number] [employer]: Souleymane Pineda MD Neutrophil (Seg) 57 % Normal 36-65 [facility] Comment on above: Performed By: #### C MPX, CDP #### [address] [place] [address] [employer]: Souleymane Pineda MD NRBC Automated 0.0 per 100 WBC Normal 0.0 [facility] Comment on above: Performed By: #### C MPX, CDP #### [facility] [address] [place], [place] [phone] [employer]: Souleymane Pineda MD Platelet Comment NOT REPORTED Normal [facility] Comment on above: Performed By: #### C MPX, CDP #### [facility] [address] [place], [place] [id number] [employer]: Souleymane Pineda MD Platelet mean volume (Bld) [Entitic vol] 9.4 fL Normal 8.1-13.5 [facility] Comment on above: Performed By: #### C MPX, CDP #### [address] [place], [place] [id number] [employer]: Souleymane Pineda MD Platelets (Bld) [#/Vol] 252 10*3/uL Normal 138-453 [facility] Comment on above: Performed By: #### C MPX, CDP #### [address] [place], [place] [id number] [employer]: Souleymane Pineda MD RBC (Bld) [#/Vol] 4.31 10*6/uL Normal 3.95-5.11 [facility] Comment on above: Performed By: #### C MPX, CDP #### [address] [place], [place] [id number] [employer]: Souleymane Pineda MD RBC morphology finding Nom (Bld) NOT REPORTED Normal [facility] Comment on above: Performed By: #### C MPX, CDP #### [address] [place], [place] [id number] [employer]: Souleymane Pineda MD WBC (Bld) [#/Vol] 8.3 10*3/uL Normal 3.5-11.3 [facility] Comment on above: Performed By: #### C MPX, CDP #### [address] [place], [place] [id number] [employer]: Souleymane Pineda MD WBC Morphology NOT REPORTED Normal [facility] Comment on above: Performed By: #### C MPX, CDP #### [facility] [address] [place], [place] [phone] [employer]: Souleymane Pineda MD CT HEAD WO CONTRASTon [...] the orbits demonstrate no acute abnormality. SINUSES: Jtsk-cy-udkegkbg paranasal sinus mucosal thickening. SOFT TISSUES/SKULL: No acute abnormality of the visualized skull or soft tissues. IMPRESSION: No acute intracranial abnormality. Interpreted by: Edwin Bentley MD Signed by: Edwin Bentley MD 12/24/20 Final result Normal [facility] CT Head WO ContrastOrdered B y: Vielka Ching on 12-24-2020 No acute intracranial abnormality. [facility] Work Phone: EXAMINATION: CT OF THE HEAD [...] the orbits demonstrate no acute abnormality. SINUSES: Rosn-dz-npaadxlx paranasal sinus mucosal thickening. SOFT TISSUES/SKULL: No acute abnormality of the visualized skull or soft tissues. [employer] Phone: Dimitri, [facility] Incoming Radiant Results From [employer] - 12/24/2020 8:49 PM EDT EXAMINATION: CT [...] the orbits demonstrate no acute abnormality. SINUSES: Tdkv-tu-ciheksjs paranasal sinus mucosal thickening. SOFT TISSUES/SKULL: No acute abnormality of the visualized skull or soft tissues. IMPRESSION: No acute intracranial abnormality. [employer] Phone: [facility] Phone: Comp Metabolic Pr/rfx MGon 1 02-24-2020 (cont.) Normal [facility] Comment on above: Result Comment: Aver age GFR for 20-29 years old: 116 mL/min/1.73sq m Chronic Kidney Disease: <60 mL/min/1.73sq m Kidney failure: <15 mL/min/1.73sq m eGFR calculated using average adult body mass. Additional eGFR calculator available at: http://www.[employer]/multiple_crcl_2011.htm Performed By: #### C MPX, CDP #### [facility] [address] [place], [place] [id number] [employer]: Souleymane Pineda MD Albumin [Mass/Vol] 4.0 g/dL Normal 3.5-5.2 [facility] Comment on above: Performed By: #### C MPX, CDP #### [facility] [address] [place], [place] [id number] [employer]: Souleymane Pineda MD Albumin/Glob Ratio 1.5 Normal 1.0-2.5 [facility] Comment on above: Performed By: #### C MPX, CDP #### [facility] [address] [place], [place] [id number] [employer]: Souleymane Pineda MD Alkaline Phos 90 U/L Normal 35-104 [facility] Comment on above: Performed By: #### C MPX, CDP #### [facility] [address] [place], [place] [phone] [employer]: Souleymane Pineda MD ALT [Catalytic activity/Vol] 40 U/L High 5-33 [facility] Comment on above: Performed By: #### C MPX, CDP #### [facility] [address] [place], [place] [phone] [employer]: Souleymane Pineda MD Anion gap [Moles/Vol] 11 mmol/L Normal 9-17 [facility] Comment on above: Performed By: #### C MPX, CDP #### [facility] [address] [place], [place] [id number] [employer]: Souleymane Pineda MD AST [Catalytic activity/Vol] 19 U/L Normal <32 [facility] Comment on above: Performed By: #### C MPX, CDP #### [facility] [address] [place], [place] [id number] [employer]: Souleymane Pineda MD Bilirubin [Mass/Vol] mg/dL Low 0.3-1.[address] [facility] Comment on above: Performed By: #### C MPX, CDP #### [facility] [address] [place], [place] [id number] [employer]: Souleymane Pineda MD BUN/CRE Ratio 15 Normal 9-20 [facility] Comment on above: Performed By: #### C MPX, CDP #### [facility] [address] [place], [place] [id number] [employer]: Souleymane Pineda MD Calcium [Mass/Vol] 8.9 mg/dL Normal 8.6-10.4 [facility] Comment on above: Performed By: #### C MPX, CDP #### [facility] [address] [place], [place] [phone] [employer]: Souleymane Pineda MD Chloride [Moles/Vol] 104 mmol/L Normal 98-[address] [facility] Comment on above: Performed By: #### C MPX, CDP #### [facility] [address] [place], [place] [id number] [employer]: Souleymane Pineda MD CO2 [Moles/Vol] 24 mmol/L Normal 20-31 [facility] Comment on above: Performed By: #### C MPX, CDP #### [facility] [address] [place], [place] [phone] [employer]: Souleymane Pineda MD Creatinine [Mass/Vol] 0.60 mg/dL Normal 0.50-0.90 [facility] Comment on above: Performed By: #### C MPX, CDP #### [facility] [address] [place] [address] [employer]: Souleymane Pineda MD GFR, Amer >60 Normal >60 [facility] Comment on above: Performed By: #### C MPX, CDP #### [facility] [address] [place], [place] [id number] [employer]: Souleymane Pineda MD GFR,non Amer >60 Normal >[address] [facility] Comment on above: Performed By: #### C MPX, CDP #### [facility] [address] [place], [place] [id number] [employer]: Souleymane Pineda MD Glucose [Mass/Vol] 91 mg/dL Normal 70-99 [facility] Comment on above: Performed By: #### C MPX, CDP #### [facility] [address] [place], [place] [id number] [employer]: Souleymane Pineda MD Potassium [Moles/Vol] 4.0 mmol/L Normal 3.7-5.3 [facility] Comment on above: Performed By: #### C MPX, CDP #### [facility] [address] [place], [place] [id number] [employer]: Souleymane Pineda MD Protein [Mass/Vol] 6.7 g/dL Normal 6.4-8.3 [facility] Comment on above: Performed By: #### C MPX, CDP #### [facility] [address] [place] [address] Dr[address] [place], [place] [phone] [employer]: Souleymane Pineda MD Sodium [Moles/Vol] 139 mmol/L Normal 135-144 [facility] Comment on above: Performed By: #### C MPX, CDP #### [facility] [address] [place], [place] [phone] [employer]: Souleymane Pineda MD Staging: Normal [facility] Comment on above: Result Comment: Stag e 1: Some kidney damage normal GFR Stage 2: Mild kidney damage GFR 60-89 Stage 3: Moderate kidney damage GFR 30-59 Stage 4: Severe kidney damage GFR 15-29 Stage 5: Severe kidney damage GFR <15 ESRD - chronic treatment by dialysis or transplant Performed By: #### C MPX, CDP #### [facility] [address] [place] [address] [employer]: Souleymane Pineda MD Urea nitrogen [Mass/Vol] 9 mg/dL Normal 6-20 [facility] Comment on above: Performed By: #### C MPX, CDP #### [facility] [address] [place] [address] [employer]: Souleymane Pineda MD Comprehensive Metabolic Pane l w/ Reflex to MGOrdered By: Vielka Ching on 12-24-2020 Albumin [Mass/Vol] 4 g/dL 3.5 - 5.2 g/dL [employer] Phone: Albumin/Globulin [Mass ratio] 1.5 {ratio} [employer] Phone: ALP (Bld) [Catalytic activity/Vol] 90 U/L 35 - 104 U/L [facility] Phone: ALT [Catalytic activity/Vol] 40 U/L High 5 - 33 U/L [facility] Phone: Anion gap [Moles/Vol] 11 mmol/L 9 - 17 mmol/L [facility] Phone: AST [Catalytic activity/Vol] 19 U/L <32 [employer] Phone: Bilirubin [Mass/Vol] mg/dL Low 0.3 - 1 .2 mg/dL [employer] Phone: Calcium [Mass/Vol] 8.9 mg/dL 8.6 - 10. 4 mg/dL [employer] Phone: Chloride [Moles/Vol] 104 mmol/L 98 - 10 7 mmol/L [employer] Phone: CO2 [Moles/Vol] 24 mmol/L 20 - 31 mmol/L [facility] Phone: Creatinine [Mass/Vol] 0.6 mg/dL 0.50 - 0.90 mg/dL [employer] Phone: Free PSA/Total PSA [Mass fraction] 6.7 g/dL 6.4 - 8.3 g/dL [employer] Phone: GFR >60 >60 mL/min [employer] Phone: GFR Non- >60 >60 mL/min [employer] Phone: Glucose [Mass/Vol] 91 mg/dL 70 - 99 mg/dL [employer] Phone: Potassium [Moles/Vol] 4.0 mmol/L 3.7 - 5.3 mmol/L [employer] Phone: Sodium [Moles/Vol] 139 mmol/L 135 - 144 mmol/L [employer] Phone: Urea nitrogen (BldV) [Mass/Vol] 9 mg/dL 6 - 20 mg/dL [employer] Phone: Urea nitrogen/Creatinine (Bld) [Mass ratio] 15 [employer] Phone: Laboratory - Chemistry and C hemistry - challengeOrdered By: Vielka Ching on 12-24-2020 GFR/1.73 sq M.predicted MDRD (S/P/Bld) [Vol rate/Area] [employer] Phone: Comment on above: Average GFR for 20-2 9 years old: 116 mL/min/1.73sq m Chronic Kidney Disease: <60 mL/min/1.73sq m Kidney failure: <15 mL/min/1.73sq m eGFR calculated using average adult body mass. Additional eGFR calculator available at: http://www.[employer]/multiple_crcl_2012.htm Stage 1: Some kidney damage normal GFR Stage 2: Mild kidney damage GFR 60-89 Stage 3: Moderate kidney damage GFR 30-59 Stage 4: Severe kidney damage GFR 15-29 Stage 5: Severe kidney damage GFR <15 ESRD - chronic treatment by dialysis or transplant No Panel InformationOrdered By: Vielka Ching on 12-24-2020 Interpretation and review of laboratory results Abnormal [employer] Phone: [employer] Phone: Social History Date Type Detail Facility Start: 06-23-2022 End: 08-08-2022 History of Social function [facility] Start: 06-23-2022 End: 08-08-2022 Patient Health Questionnaire 2 item (PHQ-2) [Reported] [facility] Start: 10-16-2021 End: 07-28-2022 Exposure to SARS-CoV-2 (event) Not sure [employer] Start: 12-24-2020 End: 10-12-2022 Tobacco smoking status NHIS Never smoker [employer] Phone: Start: 12-24-2020 End: 10-12-2022 Tobacco use and exposure Never used [employer] Start: 12-24-2020 Alcohol intake Ex-drinker (finding) [employer] Phone: Start: 1995 Sex Assigned At Not on file [facility] Tobacco smoking stat [facility] Unknown if ever smoked [facility] Tobacco smoking stat [facility] Tobacco smoking consumption unknown [facility] Work Phone: Adult Depression Screening Assessment 2 [facility] Vital Signs Date Time Vital Sign Value Performing Clinician Faci [facility] 04-14-2023 11:08-0500 Diastolic blood pressure 62 mm[Hg] Infusion 7 Work Phone: [facility] 04-14-2023 11:08-0500 Heart rate 84 /min Infusion 7 Work Phone: [facility] 04-14-2023 11:08-0500 Systolic blood pressure 109 mm[Hg] Infusion 7 Work Phone: [facility] 04-13-2023 10:50-0500 Diastolic blood pressure 63 mm[Hg] Infusion 7 Work Phone: [facility] 04-13-2023 10:50-0500 Heart rate 86 /min Infusion 7 Work Phone: [facility] 04-13-2023 10:50-0500 Systolic blood pressure 127 mm[Hg] Infusion 7 Work Phone: [facility] 04-12-2023 13:45-0500 Diastolic blood pressure 58 mm[Hg] Infusion 7 Work Phone: [facility] 04-12-2023 13:45-0500 Heart rate 79 /min Infusion 7 Work Phone: [facility] 04-12-2023 13:45-0500 Systolic blood pressure 120 mm[Hg] Infusion 7 Work Phone: [facility] 11-11-2022 10:55-0400 Diastolic blood pressure 63 mm[Hg] Infusion 8 Work Phone: [facility] 11-11-2022 10:55-0400 Heart rate 83 /min Infusion 8 Work Phone: [facility] 11-11-2022 10:55-0400 Systolic blood pressure 110 mm[Hg] Infusion 8 Work Phone: [facility] 07-28-2022 10:15-0400 Diastolic blood pressure 50 mm[Hg] Infusion 8 Work Phone: [facility] 07-28-2022 10:15-0400 Heart rate 80 /min Infusion 8 Work Phone: [facility] 07-28-2022 10:15-0400 Systolic blood pressure 105 mm[Hg] Infusion 8 Work Phone: [facility] 12-03-2021 09:47-0400 Diastolic blood pressure 81 mm[Hg] Jesse Wharton MD Work Phone: [facility] 12-03-2021 09:47-0400 Heart rate 66 /min Jesse Wharton MD Work Phone: [facility] 12-03-2021 09:47-0400 SaO2% (BldA) [Mass fraction] 100 % Jesse Wharton MD Work Phone: [facility] 12-03-2021 09:47-0400 Systolic blood pressure 131 mm[Hg] Jesse Wharton MD Work Phone: [facility] 10-20-2021 12:00-0400 Diastolic blood pressure 101 mm[Hg] Lucila Mota MD Work Phone: [facility] [employer] 10-20-2021 12:00-0400 Heart rate 85 /min Lucila Mota MD Work Phone: [employer] 10-20-2021 12:00-0400 Respiratory rate 12 /min Lucila Mota MD Work Phone: [facility] [employer] 10-20-2021 12:00-0400 SaO2% (BldA) [Mass fraction] 98 % Lucila Mota MD Work Phone: [facility] [employer] 10-20-2021 12:00-0400 Systolic blood pressure 136 mm[Hg] Lucila Mota MD Work Phone: [facility] [employer] 10-20-2021 08:00-0400 Body temperature 98.2 [degF] Lucila Mota MD Work Phone: [facility] [employer] 12-24-2020 19:36-0400 Body temperature 99 [degF] Vielkaeduardo Ching DO Work Phone: [employer] Work Phone: 12-24-2020 19:36-0400 Diastolic blood pressure 80 mm[Hg] Vielka Ching DO Work Phone: [employer] Work Phone: 12-24-2020 19:36-0400 Heart rate 108 /min Vielka Ching DO Work Phone: [employer] Work Phone: 12-24-2020 19:36-0400 Respiratory rate 20 /min Vielka Ching DO Work Phone: [employer] Work Phone: 12-24-2020 19:36-0400 SaO2% (BldA) [Mass fraction] 96 % Vielka Ching DO Work Phone: [employer] Work Phone: 12-24-2020 19:36-0400 Systolic blood pressure 136 mm[Hg] Vielka hCing DO Work Phone: [employer] Work Phone: Clinical Notes 12-24-2020 to 07-10-2023 Logan Barth APRN.MANAGER FARM - 07/10/2023 11:30 AM EDTTelephone Encounter - Kings Saez RN - 06/26/2023 3:00 PM EDTTelephone Encounter - Kings Saez RN - 06/26/2023 3:00 PM EDTAttachments Note Date & Type Note Facility 07-10-2023 Note HNO ID: [id number] Author: LOGAN BARTH APRN.MANAGER FARM Service: ? Author Type: Nurse Practitioner Type: Progress Notes Filed: 07/10/2023 13:07 Note Text: Headache Center - Follow up [...] visit. Either the patient or their legal reimbursement representative has been informed of the risks [...] So Stated, With Status Migrainosus Chief Complaint: migraine Interval Headache History: Coni Nicholson is a 27 year old year old female, with a history of asthma, anxiety, depression, PCOS, occipital neuralgia, psychogenic nonepileptic seizures, and migraine following up today virtually for headaches. Since the last visit, the patient states that their headaches are much worse. Pharmacy has not sent her aimovig in over a month. In general she has issues every month getting her injections from the pharmacy. She is not sure anymore if they are helping. First few months she had good results. No side effects. Does not think norflex is helping. Inquiring if nerve blocks are appropriate for her to try. Infusions have offered temporarily relief for a few weeks. Requesting refills of rescue meds. Headache 1 Number of migraine headache days/month: 30 Preventative: aimovig 70, magnesium Abortive: phenergan, norflex, toradol, zomig ns Analgesic Ketorolac (Toradol) Anti-Convulsant Lamotrigine (Lamictal) Topiramate (Topamax, Trokendi XL, Qudexy) Anti-Depressant and Antipsychotic Amitriptyline (Elavil) Emlenton (Eskalith, Lithobid) Nortriptyline (Pamelor, Aventyl) Anti-Migraine Dihydroergotamine (DHE-45, Migranal) Naratriptan (Amerge) Sumatriptan (Imitrex, Sumavel) Zolmitriptan (Zomig) Blood Pressure Propranolol (Inderal) MABs Fremanezumab (Ajovy) Galcanezumab (Emgality) Botulinum Toxin Onabotulinum Toxin A (Botox) Muscle Relaxer Baclofen (Lioresal) ineffective Methocarbamol (Robaxin) ineffective Orphenadrine (Norflex, Norgesic forte) helpful Tizanidine (Zanaflex) ineffective Supplements Magnesium History reviewed. No pertinent past medical history. PAST SURGICAL HISTORY Procedure Laterality Date VAGINAL HYSTERECTOMY 2022 ALLERGIES Allergen Reactions Dihydroergotamine Intolerance Chest tightness, numbness and tingling in bilateral extremities, increased anxiety Adhesive Tape-Silic* Rash Azithromycin Other: See Comments Keflex [Cephalexin] Rash Keppra [Levetiracet* Itching Pyrilamine-Dextrome* Hives Reglan [Metoclopram* Intolerance Vortioxetine Hives Current Medications: ZOLMitriptan (ZOMIG) 5 mg nasal sprayUse 1 [place] in the nose as needed at onset of migraine headache. If symptoms persist or return, may repeat dose in other nostril after 2 hours. Maximum of 2 sprays per 24 hoursDisp: 10 EachRfl: 5 erenumab-aooe (AIMOVIG AUTOINJECTOR) 140 mg/mL auto-injectorInject 1 mL subcutaneously once every month. Do not shake.Disp: 1 EachRfl: 11 keTORolac (TORADOL) 10 mg tabletTake 1 tablet by mouth every 6 hours as needed (severe migraine).Disp: 20 tabletRfl: 5 magnesium oxide 400 mg magnesium capTake 1 capsule by mouth daily at bedtime.Disp: 90 capsuleRfl: 3 chlorzoxazone (PARAFON FORTE DSC) 500 mg tabletTake 1 tablet by mouth two times a day as needed for muscle spasm (migraine).Disp: 20 tabletRfl: 5 lumateperone (CAPLYTA) 10.5 mg capsuleTake 10.5 mg by mouth once daily.Disp: Rfl: Phentermine HCl 37.5 mg tablettake 1 tablet by mouth every morning before mealsDisp: Rfl: (Patient not taking: Reported on 04/12/2023) promethazine (PHENERGAN) 12.5 mg tabletTake 1 tablet by mouth every 6 hours as needed.Disp: 90 tabletRfl: 5 lithium carbonate 300 mg tabletDisp: Rfl: traZODone (DESYREL) 100 mg tabletDisp: Rfl: lamoTRIgine (LAMICTAL) 150 mg tabletDisp: Rfl: diazePAM (VALIUM) 10 mg tabletDisp: Rfl: I have reviewed the Health Status Assessment responses and discussed these with the patient: yes Logan Barth APRN.[facility] HEADACHE SCORES: 12/12/2022 03/22/2023 07/10/2023 Headache Questions ER visits since last office visit: 6 6 8 Hospital stays [facility] (more content not included)... [facility] 07-10-2023 History of Presen t illness Narrative Images from the original note were not included. Headache Center - Follow up Virtual Visit [...] visit. Either the patient or their legal reimbursement representative has been informed of the risks [...] So Stated, With Status Migrainosus Chief Complaint: migraine Interval Headache History: Coni Nicholson is a 27 year old year old female, with a history of asthma, anxiety, depression, PCOS, occipital neuralgia, psychogenic nonepileptic seizures, and migraine following up today virtually for headaches. Since the last visit, the patient states that their headaches are much worse. Pharmacy has not sent her aimovig in over a month. In general she has issues every month getting her injections from the pharmacy. She is not sure anymore if they are helping. First few months she had good results. No side effects. Does not think norflex is helping. Inquiring if nerve blocks are appropriate for her to try. Infusions have offered temporarily relief for a few weeks. Requesting refills of rescue meds. Headache 1 Number of migraine headache days/month: 30 Preventative: aimovig 70, magnesium Abortive: phenergan, norflex, toradol, zomig ns Analgesic Ketorolac (Toradol) Anti-Convulsant Lamotrigine (Lamictal) Topiramate (Topamax, Trokendi XL, Qudexy) Anti-Depressant and Antipsychotic Amitriptyline (Elavil) Emlenton (Eskalith, Lithobid) Nortriptyline (Pamelor, Aventyl) Anti-Migraine Dihydroergotamine (DHE-45, Migranal) Naratriptan (Amerge) Sumatriptan (Imitrex, Sumavel) Zolmitriptan (Zomig) Blood Pressure Propranolol (Inderal) MABs Fremanezumab (Ajovy) Galcanezumab (Emgality) Botulinum Toxin Onabotulinum Toxin A (Botox) Muscle Relaxer Baclofen (Lioresal) ineffective Methocarbamol (Robaxin) ineffective Orphenadrine (Norflex, Norgesic forte) helpful Tizanidine (Zanaflex) ineffective Supplements Magnesium History reviewed. No pertinent past medical history. PAST SURGICAL HISTORY Procedure Laterality Date VAGINAL HYSTERECTOMY 2022 ALLERGIES Allergen Reactions Dihydroergotamine Intolerance Chest tightness, numbness and tingling in bilateral extremities, increased anxiety Adhesive Tape-Silic* Rash Azithromycin Other: See Comments Keflex [Cephalexin] Rash Keppra [Levetiracet* Itching Pyrilamine-Dextrome* Hives Reglan [Metoclopram* Intolerance Vortioxetine Hives Current Medications: ZOLMitriptan (ZOMIG) 5 mg nasal spray^Use 1 [place] in the nose as needed at onset of migraine headache. If symptoms persist or return, may repeat dose in other nostril after 2 hours. Maximum of 2 sprays per 24 hours^Disp: 10 Each^Rfl: 5 erenumab-aooe (AIMOVIG AUTOINJECTOR) 140 mg/mL auto-injector^Inject 1 mL subcutaneously once every month. Do not shake.^Disp: 1 Each^Rfl: 11 keTORolac (TORADOL) 10 mg tablet^Take 1 tablet by mouth every 6 hours as needed (severe migraine).^Disp: 20 tablet^Rfl: 5 magnesium oxide 400 mg magnesium cap^Take 1 capsule by mouth daily at bedtime.^Disp: 90 capsule^Rfl: 3 chlorzoxazone (PARAFON FORTE DSC) 500 mg tablet^Take 1 tablet by mouth two times a day as needed for muscle spasm (migraine).^Disp: 20 tablet^Rfl: 5 lumateperone (CAPLYTA) 10.5 mg capsule^Take 10.5 mg by mouth once daily.^Disp: ^Rfl: Phentermine HCl 37.5 mg tablet^take 1 tablet by mouth every morning before meals^Disp: ^Rfl: (Patient not taking: Reported on 04/12/2023) promethazine (PHENERGAN) 12.5 mg tablet^Take 1 tablet by mouth every 6 hours as needed.^Disp: 90 tablet^Rfl: 5 lithium carbonate 300 mg tablet^^Disp: ^Rfl: traZODone (DESYREL) 100 mg tablet^^Disp: ^Rfl: lamoTRIgine (LAMICTAL) 150 mg tablet^^Disp: ^Rfl: diazePAM (VALIUM) 10 mg tablet^^Disp: ^Rfl: I have reviewed the Health Status Assessment responses and discussed these with the patient: yes Koli Green, COMPUTER TECHNOLOGY INSTRUCTOR.MANAGER FARM HEADACHE SCORES: 12/12/2022 03/22/2023 07/10/2023 Headache Questions ER visits since last office visit: 6 6 8 Hospital stays since last office visit 18 2 Limited ADLs in the last month: 15 15 Days missed from work or school in the last month: 15 15 Days headache pain free in the last month: 10 10 Days per month with ALL of the following symptoms - decreased productivity, light sensitivity and nausea: 15 15 30 Initial improvement of headache after botox injection at last visit: Much worse No change No change PRN medication usage in the last month: 18 15 Patient impression of improvement since last visit: Very much worse No change Very much worse 12/12/2022 03/22/2023 07/10/2023 HIT-6 HIT-6 78 (Severe impact) 78 (Severe impact) 76 (Severe impact) 12/12/2022 03/22/2023 07/10/2023 OMID - 2/7 SCORES OMID-2 Score 4 2 2 2 OMID-7 Score 10 12/12/2022 03/22/2023 07/10/2023 Migraine Specific QOL - Higher scores indicate better HRQL Role Function-Restrictive Transformed Score (range: 0-100) 0 0 20 Role Function-Preventive Transformed Score (range: 0-100) 0 0 35 Emotional Function Transformed Score (range: 0-100) 0 0 40 12/12/2022 03/22/2023 07/10/2023 PHQ-9 Score 11 8 8 7 Studies to Review: No MRI Head/Brain - Last 2 Impressions MRI BRAIN WO/W IVCON Exam End: 10/19/2021 4:18 PM (Final result) Impression: Unremarkable MR brain. MRA Head and/or Neck - Last 2 Impressions No resulted procedures found. MRI Cervical Spine - Last 2 Impressions No resulted procedures found. CT Head/Brain - Last [address] BRAIN WO IVCON Exam End: 12/20/2021 12:03 PM (Final result) CT BRAIN WO IVCON Exam End: 12/24/2020 8:27 PM (Final result) Impression: No acute intracranial abnormality. CTA Head and/or Neck - Last 2 No resulted procedures found. Labs to Review: No - Most recent CMP and CBC below Latest Ref Rng & Units 04/01/2022 CMP Sodium 136 - 144 mmol/L 139 Potassium 3.7 - 5.1 mmol/L 4.5 Chloride 97 - 105 mmol/L 105 CO2 22 - 30 mmol/L 20 Glucose 74 - 99 mg/dL 120 BUN 7 - 21 mg/dL 11 Creatinine 0.58 - 0.96 mg/dL 0.64 EGFR >=60 mL/min/1.73m 125 Protein, Total 6.3 - 8.0 g/dL 6.9 Albumin 3.9 - 4.9 g/dL 4.2 Calcium 8.5 - 10.2 mg/dL 8.9 Bilirubin, Total 0.2 - 1.3 mg/dL 0.3 AST 13 - 35 U/L 14 ALT 7 - 38 U/L 12 Alkaline Phosphatase 34 - 123 U/L 84 Latest Ref Rng & Units 04/01/2022 CBC WBC 3.70 - 11.00 k/uL 8.83 RBC 3.90 - 5.20 m/uL 4.73 Hemoglobin 11.5 - 15.5 g/dL 13.6 Hematocrit 36.0 - 46.0 % 40.6 MCV 80.0 - 100.0 fL 85.8 MCH 26.0 - 34.0 pg 28.8 MCHC 30.5 - 36.0 g/dL 33.5 RDW-CV 11.5 - 15.0 % 12.6 Platelet Count 150 - 400 k/uL 219 MPV 9.0 - 12.7 fL 10.0 Baso% % 0.1 Abs Neut (ANC) 1.45 - 7.50 k/uL 7.87 Abs Lymph 1.00 - 4.00 k/uL 0.84 Abs Mcleod <0.87 k/uL 0.06 Abs Eosin <0.46 k/uL <0.03 Abs Baso <0.11 k/uL <0.03 NRBC /100 WBC 0.0 Review of Systems: Review of system: unchanged from the previous visit (sleep patterns, mood, energy, appetite, stress, exercising). Physical Examination: Vital Signs: No vital signs taken for this visit due to nature of virtual visit. General: well appearing, in no acute distress, alert Pain Behaviors: no pain behaviors observed Neurological: Mental Status: Alert and oriented to person, place and time. Affect is normal. Speech is spontaneous and fluent without dysarthria. Short and keno terminal operator memory, cognition and general fund of knowledge are good. Attention span and concentration are excellent. HEENT: Head is normocephalic and features were symmetric. Musculoskeletal: Patient able to sit up right in chair for entirety of visit. Cranial Nerves: III, IV, -EOMI: full. VII-face is symmetric without evidence of weakness. VIII-hearing intact. IMPRESSION: 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 without status migrainosus (primary encounter diagnosis) Coni Nicholson is a 27 year old year old female, with a history of asthma, anxiety, depression, PCOS, occipital neuralgia, psychogenic nonepileptic seizures, and chronic migraine. Their neurological examination is essentially normal at this visit although this is limited due to nature of telehealth. She has had good results with starting Aimovig, however efficacy has been waning and there may also be contribution of delayed injections due to pharmacy issues. We will increase to 140 mg and she will obtain through her retail pharmacy to optimize and avoid treatment delays. Norflex has not been effective, so we will try parafon forte instead. PLAN: Increase Aimovig 70 --> 140 monthly, will renew auth Stop Norflex --> Start parafon forte prn Continue all other present prophylactic and abortive medications as rx'ed, refills sent to pharmacy Consider nerve blocks - she will schedule prn Prior Authorization: Coni Nicholson has been previously approved for Calcitonin Gene Related Peptide Monoclonal Antibody (CGRP MAB) (Erenumab). The patient has demonstrated the following: Patient reduction in overall migraine days: Yes Patient reduction in moderate-severe migraine days: Yes Individual has obtained clinical benefit deemed significant by individual or prescriber: Yes Patient's quality of life and ability to perform ADLs has improved: Yes We suggest the patient continue treatment with CGRP MAB Erenumab. The following preventative medications have been tried for three or more months without benefit: Anti-Convulsant Lamotrigine (Lamictal) Topiramate (Topamax, Trokendi XL, Qudexy) Anti-Depressant and Antipsychotic Amitriptyline (Elavil) Emlenton (Eskalith, Lithobid) Nortriptyline (Pamelor, Aventyl) Blood Pressure Propranolol (Inderal) MABs Fremanezumab (Ajovy) Galcanezumab (Emgality) Botulinum Toxin Onabotulinum Toxin A (Botox) Supplements Magnesium The following abortive medications have been tried but require high frequency use which can lead to Medication Overuse Headache: Analgesic Ketorolac (Toradol) Anti-Migraine Dihydroergotamine (DHE-45, Migranal) Naratriptan (Amerge) Sumatriptan (Imitrex, Sumavel) Zolmitriptan (Zomig) HEADACHE MANAGEMENT: (You are the primary guardian of your health and headache. Keep track of all medications: This includes the reason for use, side effects and benefits.) MEDICATION TREATMENT: Medications to Start Taking ZOLMitriptan (ZOMIG) 5 mg nasal spray Use 1 [place] in the nose as needed at onset of migraine headache. If symptoms persist or return, may repeat dose in other nostril after 2 hours. Maximum of 2 sprays per 24 hours erenumab-aooe (AIMOVIG AUTOINJECTOR) 140 mg/mL auto-injector Inject 1 mL subcutaneously once every month. Do not shake. keTORolac (TORADOL) 10 mg tablet Take 1 tablet by mouth every 6 hours as needed (severe migraine). magnesium oxide 400 mg magnesium cap Take 1 capsule by mouth daily at bedtime. chlorzoxazone (PARAFON FORTE DSC) 500 mg tablet Take 1 tablet by mouth two times a day as needed for muscle spasm (migraine). Follow-up: 3 months, PRN Level of Service: Virtual Visit 40 minutes Logan Barth APRN.MANAGER FARM Headache Section [facility] July 10, 2023 documented in this encounter [facility] 06-26-2023 Telephone encounter Note Called Pt to clarify ER visit. States she was seen this morning at [facility] and given a Compazine and steroid shot States she cannot remember the name of steroid that was given. Information passed on to care team. Marc TOMAS, RN Clinical An/Ssn 2 4 Operator [facility] 06-26-2023 Miscellaneous Notes Called Pt to clarify ER visit. States she was seen this morning at [facility] and given a Compazine and steroid shot States she cannot remember the name of steroid that was given. Information passed on to care team. Marc TOMAS, RN Clinical An/Ssn 2 4 Operator [facility] documented in this encounter [facility] 06-26-2023 Telephone encounter Note Forwarded to provider for review. PAPO: 04/14/2023 with Suzan Driver APRN.FADY Future OV: None scheduled [facility] 06-26-2023 Miscellaneous Notes Forwarded to provider for review. PAPO: 04/14/2023 with Suzan Driver APRN.MANAGER FARM Future OV: None scheduled MyChart message sent to patient to gain more information in regards to patient's migraine. documented in this encounter [facility] 06-26-2023 Telephone encounter Note MyChart message sent to patient to gain more information in regards to patient's migraine. [facility] 04-14-2023 Instructions Suzan Driver APRN.CNP - 04/14/2023 10:49 AM EST Follow up/ [...] same date each month (such as the 1st of each month or the 15th of each month) so that you can [...] refilled without delays. documented in this encounter [facility] 04-14-2023 Note HNO ID: [id number] Author: SUZAN DRIVER APRN.CNP Service: ? 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 Short and retirement memory, cognition and general fund of knowledge [...] which included preparing to see the patient, [id number] patient care, completing clinical documentation, obtaining and/or reviewing separately obtained history, performing a medically appropriate examination, counseling and educating the patient/family/caregiver, and ordering medications, tests, or procedures. Suzan Driver APRN.MANAGER FARM Headache Section [facility] 04-14-2023 Note HNO ID: [id number] Author: INOCENCIO NAIR RN Service: ? Author Type: Registered Nurse Type: Progress Notes Filed: 04/14/2023 11:51 Note Text: Pt in for 3rd day of infusion. Pt rated headache 6/10. Pt has severe nausea and moderate dizziness. Educated pt on medications to be administered. Pt agreed to proceed as ordered. 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 @0915: Patient tearful and c/o PIV site burning and very painful. No infiltration or redness of site noted, Ice-pack placed over PIV site. After a few minutes pt reported the ice-pack did not help and wanted PIV to be removed. PIV site removed. Patient remained very anxious and tearful, and requesting if anything else can be given for anxiety. [facility] PALM AND BACK FORGER notified. New PIV site started, 2nd dose of Benadryl given for anxiety. 2nd line: Compazine given for severe nausea. Per [facility] [employer] AND BACK FORGER to hold Periactin today as the two doses of Benadryl and Compazine can cause drowsiness. Pts infusion complete, tolerated infusion. Headache 4/10. Pt stated no nausea and moderate dizziness. PIV site removed. Pt discharged from txt room at 1124 via wheelchair to ride in [place]. 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 Short and keno terminal operator memory, cognition and general fund of [...] which included preparing to see the patient, eqld-lg-euln patient care, completing clinical documentation, obtaining and/or reviewing separately obtained history, performing a medically appropriate examination, counseling and educating the patient/family/caregiver, and ordering medications, tests, or procedures. Suzan Driver APRN.MANAGER FARM Headache Section [facility] documented in this encounter [facility] 04-14-2023 History of Presen t illness Narrative Pt in for 3rd day of infusion. Pt rated headache 6/10. Pt has severe nausea and moderate dizziness. Educated pt on medications to be administered. Pt agreed to proceed as ordered. 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 @0915: Patient tearful and c/o PIV site burning and very painful. No infiltration or redness of site noted, Ice-pack placed over PIV site. After a few minutes pt reported the ice-pack did not help and wanted PIV to be removed. PIV site removed. Patient remained very anxious and tearful, and requesting if anything else can be given for anxiety. [facility] PALM AND BACK FORGER notified. New PIV site started, 2nd dose of Benadryl given for anxiety. 2nd line: Compazine given for severe nausea. Per Uche PALM AND BACK FORGER to hold Periactin today as the two doses of Benadryl and Compazine can cause drowsiness. Pts infusion complete, tolerated infusion. Headache 4/10. Pt stated no nausea and moderate dizziness. PIV site removed. Pt discharged from txt room at 1124 via wheelchair to ride in [place]. documented in this encounter [facility] 04-13-2023 Note HNO ID: [id number] Author: JOHANA CANCINO RN Service: ? Author [...] She is working with a psychiatrist in [place] . Voiced stress is her biggest trigger for headaches. 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 I mentioned to patient our reboot program . Patient very interested to learn about it. Message send to our computer processing scheduler and Rhina Lim to set up patient for evaluation. 1020 Patient sleeping on and off. Nausea subsiding. Patient declined Zofran. Stated Zofran ineffective. 1050 Infusion complete. Patient slept on and off. Nausea resolved. PINEDA 6/10. Patient verbal , appears sedated . D/c via wheel chair to her in [place]. [facility] 04-13-2023 History of Presen t illness Narrative [...] She is working with a psychiatrist in [place] . Voiced stress is her biggest trigger for headaches. 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 I mentioned to patient our reboot program . Patient very interested to learn about it. Message send to our computer processing scheduler and Rhina Lim to set up patient for evaluation. 1020 Patient sleeping on and off. Nausea subsiding. Patient declined Zofran. Stated Zofran ineffective. 1050 Infusion complete. Patient slept on and off. Nausea resolved. PINEDA 6/10. Patient verbal , appears sedated . D/[facility] wheel [facility]. documented in this encounter [facility] 04-13-2023 Miscellaneous Notes Patient is currently receiving infusions for headache. She is interested in learning about reboot program. Please schedule for evaluation. Johana Cancino RN documented in this encounter [facility] 04-12-2023 Note HNO ID: [id number] Author: SUZAN DRIVER APRN.MANAGER FARM Service: ? 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 Short and keno terminal operator memory, cognition and general fund of [...] which included preparing to see the patient, nkty-uk-bzvz patient care, completing clinical documentation, obtaining and/or reviewing separately obtained history, performing a medically appropriate examination, counseling and educating the patient/family/caregiver, and ordering medications, tests, or procedures. Suzan Driver APRN.MANAGER FARM Headache Section [facility] 04-12-2023 Note HNO ID: [id number] Author: SUZAN JEFF RN Service: ? Author [...] vs oral periactin for sedation. Rhina Driver PALM AND BACK FORGER updated and agreeable. PIV started on 3rd [...] dizziness. 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 Short and keno terminal operator memory, cognition and general fund of [...] which included preparing to see the patient, yqts-ji-doxi patient care, completing clinical documentation, obtaining and/or reviewing separately obtained history, performing a medically appropriate examination, counseling and educating the patient/family/caregiver, and ordering medications, tests, or procedures. Suzan Driver APRN.FADY Headache Section [facility] documented in this encounter [facility] 04-12-2023 History of Presen t illness Narrative 1105 Patient in for first day of IV infusions. Patient rated headache 8/10. Patient stated severe nausea and mild dizziness. Patient educated on medications to be administered. Patient verbalized understanding and agreed to proceed with infusions. Patient requested the PRN IV Benadryl vs oral periactin for sedation. Rhina Driver PALM AND BACK FORGER updated and agreeable. PIV started on 3rd [...] dizziness. 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 documented in this encounter [facility] 04-12-2023 Instructions Suzan Driver APRN.FADY - 04/12/2023 11:52 AM EST General Headache [...] much light. These can be obtained at [employer] or [employer]: see list below. 2. Limit use of acute treatments (cvxf-xfw-yejcfdr medications, triptans, etc.) to no more than [...] and quiet environment. Relax and reduce stress. Duahmwe3Bpwlk is a free andrzej that can instruct you on some simple relaxtion and breathing techniques. Http://[employer] is a free website that provides teaching [...] ensuing treatment plans will be released via [employer] and discussed during your follow-up appointment. Follow-up appointments are primarily provided by the Nurse Practitioners and Physician s Assistants in order to provide timely, accessible care. Testthart: Please ask the schedulers to give you an activation code. The main way of communication is by [employer] rather than phone lines, so if you have not signed up, please do so. [employer] is also the way that you can review your labs and testing. We are not able to contact everyone to tell them results are normal. If you do not hear back from us regarding testing you have had, it should be considered normal or within normal range. If you have any questions about the results, you are free to message us. [employer] is meant for simple questions regarding medications, possible side effects, or other simple straight forward questions in limited sentences, rather than multiple paragraphs of discussion. [employer] is not meant for, or efficient for these complex questions, extensive questions, extensive medication adjustments, complex new symptoms or concerns. These issues beyond simple questions require a follow up visit with myself, one of our physician assistants, nurse practitioners, or a Virtual Visit via computer or smart phone, as detailed further down. Please contact [employer] if you are having issues with [employer] or logging in to your virtual visit appointment. You can reach them at [phone] Refills: Please pay attention to when your [...] pepperoni, Pickled reynoso Pods of broad carmona (Cameroonian beans, Macanese pea pods, Sami (jc) beans, frazier and navy beans Ripe [...] convincingly provoke headaches. documented in this encounter [facility] 04-03-2023 Miscellaneous Notes Ambulatory Pharmacy Prior Authorization Note Provider Intervention Required?: No- Pharmacy completed on your behalf. Rx Plan: Medicaid [facility] ([facility]) Drug: Aimovig 70MG/ML auto-injectors Cover My Meds Chong: [id number] Determination: Approved Prior Authorization/Case #: n/a Prior [...] refills. Prescriptions will now be processed through [facility] for determination of next steps. For questions relating to this submission, please contact [facility] at [phone] [facility] received prescription(s) for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 any use of the information to criminally investigate or prosecute any alcohol or drug abuse patient.[facility] HospitalIn the event this information is protected by the Federal Confidentiality of Alcohol and Drug Abuse Patient Records regulations: The Federal rules restrict any use of the information to criminally investigate or prosecute any alcohol or drug abuse patient.[facility] HospitalIn the event this information is protected by the Federal Confidentiality of Alcohol and Drug Abuse Patient Records regulations: The Federal rules restrict any use of the information to criminally investigate or prosecute any alcohol or drug abuse patient.[facility] HospitalIn the event this information is protected by the Federal Confidentiality of Alcohol and Drug Abuse Patient Records regulations: The Federal rules restrict any use of the information to criminally investigate or prosecute any alcohol or drug abuse patient.[facility] Reason for Visit (unrecogniz ed section and content) Reason Comments Headache Infusion Specialty Diagnoses / Procedures Referred By Contac t Referred To Contact Neurology / HEADACHE Diagnoses NON-DHE #1 Procedures INFUSION HEADACHE ApollodudleySuzanUMANG.MANAGER FARM [address] [place] [address] Neur Headache Main [address] [phone] Referral ID Status Reason Start Date Expiration Date V isits Requested Visits Authorized [id number] Authorized 04/12/2023 02/20/2024 99 99 Reason Comments Future Appointment [place], [place], Any Reason Comments Migraine seen at [place] yest erday for Migrane and D & [...] INFUSION HEADACHE Maria Del Rosario Hahn MD [address] [place] [address] Neur Headache Main [address] [place] [address] Referral ID Status Reason Start Date Expiration Date Visits Re quested Visits Authorized [id number] Closed 07/28/2022 09/26/2022 1 1 Reason Comments Chronic Migraine Reason Comments Chronic Migraine Reason Comments Insurance Authorization Zomig 5MG nasal spray Reason Comments Infusion Reason Comments Migraine Specialty Diagnoses / Procedures Referred By Contac t Referred To Contact Neurology / HEADACHE Diagnoses POSSIBLE DHE/WAITING FOR ORDERS Procedures INFUSION HEADACHE Self Neur Headache [address] [place] [address] Referral ID Status Reason Start Date Expiration Date V isits Requested Visits Authorized [id number] Authorized 11/10/2022 02/08/2023 1 99 Reason Onset Date Comments Refill Request 12/09/2022 Reason Onset Date Comments Refill Request 12/13/2022 Reason Comments Infusion HEADACHE INFUSIONS Reason Comments Insurance Authorization Aimovig 70MG/ML auto-injectors Specialty Diagnoses / Procedures Referred By Contac t Referred To Contact Neurology / HEADACHE Diagnoses NON-DHE #1 Procedures INFUSION HEADACHE Suzan Driver APRN.MANAGER FARM [address] [place] [address] Neur Headache [address] [place] [address] Reason Comments Appointment Patient currently re ceiving infusions for headache. She is interested in learning about reboot program. Please schedule patient for evaluation if appropriate to proceed. Reason Comments Migraine Reason Comments Migraine Scheduled Active and Recently [...] 144 (Due) 0834 (Given - Provider: Clementine Cm, [...] mg from all sources in 24 hours. 183 (Given - Provider: Adrienne Stephens, PRATIBHA) gadoteridol [...] section and content) DATE CREATED AUTHOR 12/26/2020 [facility] DATE CREATED AUTHOR AUTHOR'S ORGANIZ ATION 10/25/2021 [facility] DATE CREATED AUTHOR AUTHOR'S ORGANIZ ATION 05/26/2022 [facility] DATE CREATED AUTHOR AUTHOR'S ORGANIZ ATION 08/02/2022 [facility] DATE CREATED AUTHOR AUTHOR'S ORGANIZ ATION 06/19/2023 [facility] DATE CREATED AUTHOR AUTHOR'S ORGANIZ ATION 07/12/2023 [facility] DATE CREATED AUTHOR AUTHOR'S ORGANIZ ATION 08/12/2023 [facility] Ordered Prescriptions (unrec ognized section and content) Prescription Sig Dispensed Refills Start Date End Da te lamoTRIgine (LAMICTAL) 25 MG tablet Take 2 tablets by mouth daily 30 tablet 3 10/21/2021 Care Teams (unrecognized sec tion and content) Cloth Boil Off Machine Operator Relationship Specialty Start Date End Date RandellAngélica rick Pamela, COMPUTER TECHNOLOGY INSTRUCTOR - MANAGER FARM [address] [place] [address] PCP - General Nurse Practitioner 12/24/20 Cloth Boil Off Machine Operator Relationship Specialty Start Date End Date Hoy, Maria Del Rosario M (Historical) PCP - General 05/21/13 Cloth Boil Off Machine Operator Relationship Specialty Start Date End Date Hoy, Maria Del Rosario M (Historical) PCP - General 05/21/13 Cloth Boil Off Machine Operator Relationship Specialty Start Date End Date Hoy, Maria Del Rosario M (Historical) PCP - General 05/21/13 Cloth Boil Off Machine Operator Relationship Specialty Start Date End Date Hoy, Maria Del Rosario M (Historical) PCP - General 05/21/13 Cloth Boil Off Machine Operator Relationship Specialty Start Date End Date Hoy, Maria Del Rosario M (Historical) PCP - General 05/21/13 Cloth Boil Off Machine Operator Relationship Specialty Start Date End Date Hoy, Maria Del Rosario M (Historical) PCP - General 05/21/13 Cloth Boil Off Machine Operator Relationship Specialty Start Date End Date Hoy, Maria Del Rosario M (Historical) PCP - General 05/21/13 Cloth Boil Off Machine Operator Relationship Specialty Start Date End Date Hoy, Maria Del Rosario M (Historical) PCP - General 05/21/13 Cloth Boil Off Machine Operator Relationship Specialty Start Date End Date Hoy, Maria Del Rosario M (Historical) PCP - General 05/21/13 Cloth Boil Off Machine Operator Relationship Specialty Start Date End Date Hoy, Maria Del Rosario M (Historical) PCP - General 05/21/13 Cloth Boil Off Machine Operator Relationship Specialty Start Date End Date Hoy, Maria Del Rosario M (Historical) PCP - General 05/21/13 Cloth Boil Off Machine Operator Relationship Specialty Start Date End Date Hoy, Maria Del Rosario M (Historical) PCP - General 05/21/13 Cloth Boil Off Machine Operator Relationship Specialty Start Date End Date Hoy, Maria Del Rosario M (Historical) PCP - General 05/21/13 Cloth Boil Off Machine Operator Relationship Specialty Start Date End Date Hoy, Maria Del Rosario M (Historical) PCP - General 05/21/13 Cloth Boil Off Machine Operator Relationship Specialty Start Date End Date Hoy, Maria Del Rosario M (Historical) PCP - General 05/21/13 Cloth Boil Off Machine Operator Relationship Specialty Start Date End Date HoNoam beanlas M (Historical) PCP - General 05/21/13 Cloth Boil Off Machine Operator Relationship Specialty Start Date End Date HoyNoamMaria Del Rosario M (Historical) PCP - General 05/21/13 Cloth Boil Off Machine Operator Relationship Specialty Start Date End Date HoyNoamMaria Del Rosario M (Historical) PCP - General 05/21/13 Cloth Boil Off Machine Operator Relationship Specialty Start Date End Date HoyNoamMaria Del Rosario M (Historical) PCP - General 05/21/13 Cloth Boil Off Machine Operator Relationship Specialty Start Date End Date HoyNoamMaria Del Rosario M (Historical) PCP - General 05/21/13 Cloth Boil Off Machine Operator Relationship Specialty Start Date End Date HoyNoamMaria Del Rosario M (Historical) PCP - General 05/21/13 Cloth Boil Off Machine Operator Relationship Specialty Start Date End Date HoyNoamMaria Del Rosario M (Historical) PCP - General 05/21/13 Cloth Boil Off Machine Operator Relationship Specialty Start Date End Date HoyNoamMaria Del Rosario M (Historical) PCP - General 05/21/13 Cloth Boil Off Machine Operator Relationship Specialty Start Date End Date HoyNoamMaria Del Rosario M (Historical) PCP - General 05/21/13 Cloth Boil Off Machine Operator Relationship Specialty Start Date End Date HoyNoamMaria Del Rosario M (Historical) PCP - General 05/21/13 Cloth Boil Off Machine Operator Relationship Specialty Start Date End Date HoNoam beanlas M (Historical) PCP - General 05/21/13 Cloth Boil Off Machine Operator Relationship Specialty Start Date End Date HoNoam beanlas M (Historical) PCP - General 05/21/13 Cloth Boil Off Machine Operator Relationship Specialty Start Date End Date HoNoam beanlas M (Historical) PCP - General 05/21/13 Cloth Boil Off Machine Operator Relationship Specialty Start Date End Date HoNoam beanlas M (Historical) PCP - General 05/21/13 Cloth Boil Off Machine Operator Relationship Specialty Start Date End Date HoNoam beanlas M (Historical) PCP - General 05/21/13 Cloth Boil Off Machine Operator Relationship Specialty Start Date End Date Hoy [...] BE BASED ON THE PRIMARY CLINICAL RECORDS. [employer] [facility]. provides no warranty or guarantee of the accuracy or completeness of information in this document.
[2023-08-14 23:06] LABS: Basophils Percent Auto 0.5 % (0.2-2.0); Eosinophils Absolute Auto 0.3 10^3/uL (0.0-0.7); Eosinophils Percent Auto 3.9 % (0.9-7.0); Hemoglobin 11.3 g/dL (12.0-16.0); Immature Granulocytes Abs Auto 0.04 10^3/uL (0.00-0.03); Immature Granulocytes Pct Auto 0.5 % (0.0-0.5); Lymphocytes Absolute Auto 1.8 10^3/uL (1.2-3.8); Lymphocytes Percent Auto 22.4 % (20.5-60.0); Mean Corpuscular HGB Conc 32.3 g/dL (29.9-35.2); Mean Corpuscular Hemoglobin 28.5 pg (26.7-34.0); Mean Corpuscular Volume 88.4 fL (81.0-99.0); Mean Platelet Volume 9.9 fL (9.5-13.5); Monocytes Absolute Auto 0.7 10^3/uL (0.3-0.8); Monocytes Percent Auto 8.1 % (1.7-12.0); Neutrophils Absolute Auto 5.2 10^3/uL (1.4-6.5); Neutrophils Percent Auto 64.6 % (43.0-75.0); Platelet Count 224 10^3/uL (150-450); Red Blood Count 3.96 10^6/uL (4.20-5.40)
[2023-08-14 23:08] LABS: Bilirubin Urine NEGATIVE (NEGATIVE); Blood Urine NEGATIVE (NEGATIVE); Clarity Urine CLEAR (CLEAR); Color Urine LT. YELLOW (YELLOW); Glucose Urine UA NEGATIVE (NEGATIVE); Ketones Urine NEGATIVE (NEGATIVE); Leukocyte Esterase Urine NEGATIVE (NEGATIVE); Nitrite Urine NEGATIVE (NEGATIVE); Protein Urine NEGATIVE (NEG/TRACE); Specific Gravity Urine <=1.005 (1.005-1.025); Urobilinogen Urine 0.2 EU/dL (0.2-1.0)
[2023-08-14 23:14] LABS: Bacteria Urine NONE SEEN #/HPF (NONE SEEN); Cast Seen? NONE SEEN #/LPF (NONE SEEN); Crystals Seen? None Seen #/HPF (None Seen); Mucus Urine NONE SEEN (NONE SEEN); RBC Urine 0-2 #/HPF (0-2); Squamous Epithelial Cell Urine RARE #/LPF (NONE/RARE); Urine Culture Indicated NO; WBC Urine NONE SEEN #/HPF (NONE SEEN)
[2023-08-14 23:17] LABS: Cannabinoid Screen Urine POSITIVE (NEGATIVE)
[2023-08-14 23:18] LABS: Amphetamine Screen Urine NEGATIVE (NEGATIVE); Barbiturates Screen Urine NEGATIVE (NEGATIVE); Benzodiazepines Screen Urine POSITIVE (NEGATIVE); Buprenorphine Screen Urine NEGATIVE (NEGATIVE); Cocaine Screen Urine NEGATIVE (NEGATIVE); Methadone Screen Urine NEGATIVE (NEGATIVE); Methamphetamines Screen Urine NEGATIVE (NEGATIVE); Opiate Screen Urine NEGATIVE (NEGATIVE); Oxycodone Screen Urine NEGATIVE (NEGATIVE); Phencyclidine Screen Urine NEGATIVE (NEGATIVE); Tricyclic Antidepressant Urine NEGATIVE (NEGATIVE)
--- NOTE | 2023-08-14 23:18 | PC.NURSE ---
Patient postictal n admission, but during intake she had a full body seizure lasting approx. 5 sec. No incontinence noted. Seizure pads in place
[2023-08-14 23:20] VITALS: PULSE 85
[2023-08-14] MEDS: LORAZEPAM 2 MG/ML VIAL 1 MG IV (23:22)
[2023-08-14] MEDS: 0.9 % SODIUM CHLORIDE 1,000 ML 1000 ML IV (23:22)
[2023-08-14 23:23] VITALS: BP 119/73
[2023-08-14 23:30] VITALS: BP 137/106
[2023-08-14 23:32] LABS: Alanine Aminotransferase 34 U/L (14-59); Albumin Level 3.1 g/dL (3.4-5.0); Alkaline Phosphatase 78 U/L (46-116); Anion Gap 11.9; Aspartate Amino Transferase 7 U/L (15-37); BUN Creatinine Ratio 14.3; Bilirubin Total 0.3 mg/dL (0.2-1.0); Calcium 11.9 mg/dL (8.5-10.1); Carbon Dioxide 24.6 mmol/L (21.0-32.0); Chloride 109 mmol/L (98-107); Estimated GFR (African America >60 (>=60); Estimated GFR (Non-African Ame >60 (>=60); Globulin 3.2 g/dL; Glucose 109 mg/dL (74-106); Potassium 3.5 mmol/L (3.5-5.1); Sodium 142 mmol/L (136-145); Total Protein 6.3 g/dL (6.4-8.2)
[2023-08-14 23:36] LABS: Lactate/Lactic Acid 2.3 mmol/L (0.4-2.0)
[2023-08-14 23:45] VITALS: BP 133/98
[2023-08-14 23:53] LABS: HCG Qualitative Urine* NEGATIVE (NEGATIVE); Internal Control Within Normal Limits
--- NOTE | 2023-08-14 23:53 | ED_ITS ---
HPI - Seizure General Chief Complaint: Seizure Stated Complaint: UNNOWN Time Seen by Provider: 08/14/23 22:29 Source: other Source comment: EMS Mode of arrival: ambulance Limitations: altered mental status History of Present Illness HPI Narrative: This 27-year-old female with a history of a seizure disorder and migraine headaches is brought to the emergency department by EMS from home after she had a seizure. History was obtained from paramedics as the patient is postictal upon arrival. Upon arrival she had a 5 to 10-second tonic-clonic seizure. She was medicated with a dose of IV Ativan. During her emergency department stay she has been sleepy but arousable and has asked for her mother. She did not bite her tongue and there was no sign of urinary incontinence. Seizure History: Yes (last 01/16/2023) Place: home Related Data Home Medications ?Medication ?Instructions ?Recorded ?Confirmed baclofen 10 mg tablet 10 mg PO TID spasms 07/20/22 05/12/23 diazepam 10 mg tablet 10 mg PO BID 07/20/22 05/12/23 epinephrine 0.3 mg/0.3 mL 0.3 mg IM Q10M PRN anaphylaxis 07/20/22 05/12/23 injection, auto-injector estradiol 0.5 mg tablet 0.5 mg PO QAM 01/06/23 05/12/23 diphenhydramine HCl 25 mg capsule 75 mg PO Q6H PRN migraine headache 01/26/23 05/12/23 (Benadryl) ibuprofen 800 mg tablet 800 mg PO Q8H PRN pain 01/26/23 05/12/23 lamotrigine 200 mg tablet 200 mg PO BID 01/26/23 05/12/23 orphenadrine citrate 100 mg 100 mg PO BID PRN migraine 01/26/23 05/12/23 tablet,extended release promethazine 25 mg tablet 12.5 mg PO Q6H PRN nausea and 01/26/23 05/12/23 vomiting albuterol sulfate 2.5 mg/3 mL 2.5 mg inhalation Q4H PRN 03/03/23 05/12/23 (0.083 %) solution for nebulization shortness of breath or wheezing ketorolac 10 mg tablet 10 mg PO Q6H PRN migraine headache 03/03/23 05/12/23 magnesium oxide 400 mg PO .qhs 03/03/23 05/12/23 trazodone 300 mg tablet 300 mg PO .qhs 03/03/23 05/12/23 erenumab-aooe 70 mg/mL 70 mg subcut ONCE PRN migraine 04/27/23 05/12/23 subcutaneous auto-injector headache (Aimovig Autoinjector) lithium carbonate 300 mg tablet 300 mg PO Q12H 04/27/23 05/12/23 Previous Rx's ?Medication ?Instructions ?Recorded ondansetron 4 mg disintegrating 4 mg PO Q6H PRN nausea and 02/26/23 tablet vomiting #20 tabs budesonide-formoterol HFA 160 2 inh inhalation Q12H #10.2 grams 03/04/23 mcg-4.5 mcg/actuation aerosol inhaler (Symbicort) tobramycin 0.3 %-dexamethasone 0.1 1 drp ophthalmic (eye) Q6H 7 days 05/12/23 % eye drops,suspension #5 mL ketorolac 10 mg tablet 10 mg PO Q8H PRN pain 2 days #6 05/13/23 tabs promethazine 25 mg tablet 25 mg PO Q6H PRN nausea and 05/13/23 vomiting 3 days #12 tabs tramadol 50 mg tablet 50 mg PO BID PRN pain 3 days #6 05/13/23 tabs Allergies Allergy/AdvReac Type Severity Reaction Status Date / Time dihydroergotamine Allergy Unknown Verified 05/29/23 19:27 vortioxetine Allergy Unknown Verified 05/29/23 19:27 buspirone Allergy Hives Verified 05/29/23 19:27 carbamazepine Allergy Unknown Verified 05/29/23 19:27 levetiracetam [From Keppra] Allergy ITCHING Verified 05/29/23 19:27 azithromycin [From Zithromax] AdvReac Intermediate Hives Verified 05/29/23 19:27 bee venom protein (honey bee) AdvReac Intermediate Hives Verified 05/29/23 19:27 metoclopramide [From Reglan] AdvReac Intermediate panic Verified 05/29/23 19:27 adhesive tape AdvReac Mild Rash Verified 05/29/23 19:27 cephalexin [From Keflex] AdvReac Mild Hives Verified 05/29/23 19:27 dextromethorphan AdvReac Mild Unknown Verified 05/29/23 19:27 [From [place] DM] pyrilamine [From [place] DM] AdvReac Mild Unknown Verified 05/29/23 19:27 propranolol AdvReac Hives Verified 05/29/23 19:27 Review of Systems ROS Status of ROS 10 or more systems reviewed and unremark able except as noted in history and below PFS PFS Medical History Chronic pain disorder ?G89.4 - Chronic pain syndrome (ICD-10) Conjunctivitis ?H10.9 - Unspecified conjunctivitis (ICD-10) Migraine ?G43.909 - Migraine, unspecified, not intractable, without status migrainosus (ICD-10) Viral upper respiratory tract infection with cough ?J06.9 - Acute upper respiratory infection, unspecified (ICD-10) Seizure disorder ?G40.909 - Epilepsy, unspecified, not intractable, without status epilepticus (ICD-10) Bipolar disorder ?F31.9 - Bipolar disorder, unspecified (ICD-10) Pelvic pain ?R10.2 - Pelvic and perineal pain (ICD-10) Headache ?R51.9 - Headache, unspecified (ICD-10) Bilateral occipital neuralgia ?M54.81 - Occipital neuralgia (ICD-10) Migraine ?G43.909 - Migraine, unspecified, not intractable, without status migrainosus (ICD-10) Post-op pain ?G89.18 - Other acute postprocedural pain (ICD-10) Combative behavior ?R46.89 - Other symptoms and signs involving appearance and behavior (ICD-10) Postoperative nausea and vomiting ?R11.2 - Nausea with vomiting, unspecified (ICD-10) ?Z98.890 - Other specified postprocedural states (ICD-10) Vaginal bleeding ?N93.9 - Abnormal uterine and vaginal bleeding, unspecified (ICD-10) Abscess of vagina ?N76.0 - Acute vaginitis (ICD-10) PCOS (polycystic ovarian syndrome) ?E28.2 - Polycystic ovarian syndrome (ICD-10) Mitral valve prolapse ?I34.1 - Nonrheumatic mitral (valve) prolapse (ICD-10) Vaginal delivery ?O80 - Encounter for full-term uncomplicated delivery (ICD-10) Nausea ?R11.0 - Nausea (ICD-10) GERD (gastroesophageal reflux disease) ?K21.9 - Gastro-esophageal reflux disease without esophagitis (ICD-10) Depression ?F32.A - Depression, unspecified (ICD-10) Blood in urine ?R31.9 - Hematuria, unspecified (ICD-10) Acne ?L70.9 - Acne, unspecified (ICD-10) Dyspareunia Brain mass ?G93.89 - Other specified disorders of brain (ICD-10) Pneumonia ?J18.9 - Pneumonia, unspecified organism (ICD-10) Kidney stones ?N20.0 - Calculus of kidney (ICD-10) COVID-19 ?U07.1 - COVID-19 (ICD-10) Bronchitis ?J40 - Bronchitis, not specified as acute or chronic (ICD-10) Asthma ?J45.909 - Unspecified asthma, uncomplicated (ICD-10) Stress incontinence ?N39.3 - Stress incontinence (female) (male) (ICD-10) Dysuria ?R30.0 - Dysuria (ICD-10) Seizure ?R56.9 - Unspecified convulsions (ICD-10) Neck pain ?M54.2 - Cervicalgia (ICD-10) Migraine ?G43.909 - Migraine, unspecified, not intractable, without status migrainosus (ICD-10) Low back pain ?M54.50 - Low back pain, unspecified (ICD-10) Head injury ?S09.90XA - Unspecified injury of head, initial encounter (ICD-10) Anxiety ?F41.9 - Anxiety disorder, unspecified (ICD-10) Surgical History H/O laparoscopy (07/21/22) ?Z98.890 - Other specified postprocedural states (ICD-10) S/P RAVI-BSO ?Z90.710 - Acquired absence of both cervix and uterus (ICD-10) ?Z90.722 - Acquired absence of ovaries, bilateral (ICD-10) ?Z90.79 - Acquired absence of other genital organ(s) (ICD-10) Hx laparoscopic cholecystectomy ?Z90.49 - Acquired absence of other specified parts of digestive tract (ICD- 10) H/O: ?Z98.891 - History of uterine scar from previous surgery (ICD-10) History of appendectomy ?Z90.49 - Acquired absence of other specified parts of digestive tract (ICD- 10) Family History Other Acid reflux Acute renal disease Afib Chromosomal disorder Delayed developmental milestones Diabetes Family history of hypertension High cholesterol Neuro-irritability due to autonomic dysfunction 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 level of school completed/degree received: high school graduate Gender Identity: female Exam Narrative Exam Narrative: Vital signs and Nursing Notes reviewed: Patient is afebrile with a normal pulse, normal blood pressure, she is not hypoxic with pulse ox of 97% on room air General: Patient is postictal upon arrival, she opens her eyes to a sternal rub and a appears to try to mouth some words, no facial droop, no respiratory distress HEENT: Normocephalic atraumatic, mucous membranes are moist and pink, eyes are clear, normal conjunctiva, vision is grossly intact, posterior pharynx is normal in appearance, patient is able to stick out her tongue. There is no tongue laceration contusion or swelling noted Neck: Supple, no meningeal signs, no anterior or posterior cervical l ymphadenopathy Chest: Lungs are clear to auscultation with good air entry, there is no wheezing rhonchi or rales appreciated no accessory muscle use, patient is speaking in complete sentences-no chest wall tenderness to palpation CVS: Regular rate and rhythm S1-S2, no murmurs rubs or gallops, pulses are brisk and equal bilaterally ABD: Soft, nondistended, nontender, no rebound guarding or rigidity, bowel sounds are normal, no pulsatile masses appreciated Extremities: No bony deformity or swelling noted Skin: Normal in appearance without rash,pallor, petechiae or purpura Neuro: Postictal upon arrival, after arrival able to open her eyes to verbal stimuli and requests to have her mother come to the emergency department, otherwise patient is sleeping and appears postictal Constitutional Vital Signs, click to edit/add: Last Vital Signs Temp 99.5 F 08/14/23 22:28 Pulse 81 08/15/23 01:06 Resp 25 H 08/15/23 01:06 BP 142/89 H 08/15/23 03:00 Pulse Ox 97 08/15/23 02:53 O2 Del Method Room Air 08/14/23 22:28 Course Vital Signs Vital signs: Vital Signs Temperature 99.5 F 08/14/23 22:28 Pulse Rate 100 H 08/14/23 22:28 Respiratory Rate 16 08/14/23 22:28 Blood Pressure 112/71 08/14/23 22:28 Pulse Oximetry 97 08/14/23 22:28 Oxygen Delivery Method Room Air 08/14/23 22:28 Temperature 99.5 F 08/14/23 22:28 Pulse Rate 81 08/15/23 01:06 Respiratory Rate 25 H 08/15/23 01:06 Blood Pressure 142/89 H 08/15/23 03:00 Pulse Oximetry 97 08/15/23 02:53 Oxygen Delivery Method Room Air 08/14/23 22:28 MDM - Seizure MDM Narrative Medical decision making narrative: This 27-year-old female with a history of seizures is brought to the emergency department from home after she had a seizure. Shortly after arrival she had another seizure that lasted approximately 5 to 10 seconds. She was medicated with a dose of IV Ativan at that time and given IV fluids. She was initially postictal and had the short seizure. She has not had any additional seizures since being in the emergency department. Routine labs are reviewed. She has a normal white count and hemoglobin. Electrolytes are normal. She does have a mildly elevated lactic acid at 2.3. After sleeping for a period of time she awakened and told me that she takes Vimpat for her seizures and has been compliant with that as well as Valium. Her neuroexam after awakening is normal. She does complain of a migraine headache. She will be given a dose of Toradol for the headache. Anticipate that she will be able to be discharged home as she is able to call her mother on the phone and is neurologically stable after s leeping off the postictal period and Ativan. CT scan of the brain was reviewed by radiology and is negative for acute findings. Once she was alert, she called her mother who came to the ED and demanded that the patient receive IV dilaudid for her migraine headache because, as she explained to the nurses, the migraines are what cause her seizures. She requested a 'migraine cocktail and was given IV solumedrol and IM phenergan, as she is allergic to reglan, with clinical improvement in her headache, On re-evaluation she states she is ready to go home. Her mother will drive her home. Lab Data Labs: Lab Results 08/14/23 08/14/23 08/15/23 Range/Units 22:46 22:50 01:52 WBC 8.0 (4.0-11.0) 10^3/uL RBC 3.96 L (4.20-5.40) 10^6/uL Hgb 11.3 L (12.0-16.0) g/dL Hct 35.0 L (36.0-48.0) % MCV 88.4 (81.0-99.0) fL MCH 28.5 (26.7-34.0) pg MCHC 32.3 (29.9-35.2) g/dL RDW 13.0 (11.0-15.0) % Plt Count 224 (150-450) 10^3/uL MPV 9.9 (9.5-13.5) fL Neut % (Auto) 64.6 (43.0-75.0) % Lymph % (Auto) 22.4 (20.5-60.0) % [place] % (Auto) 8.1 (1.7-12.0) % Eos % (Auto) 3.9 (0.9-7.0) % Baso % (Auto) 0.5 (0.2-2.0) % Neut # (Auto) 5.2 (1.4-6.5) 10^3/uL Lymph # (Auto) 1.8 (1.2-3.8) 10^3/uL [place] # (Auto) 0.7 (0.3-0.8) 10^3/uL Eos # (Auto) 0.3 (0.0-0.7) 10^3/uL Baso # (Auto) 0.0 (0.0-0.1) 10^3/uL Abs Immat Gran (auto) 0.04 H (0.00-0.03) 10^3/uL Imm/Tot Granulo (auto) 0.5 (0.0-0.5) % Sodium 142 (136-145) mmol/L Potassium 3.5 (3.5-5.1) mmol/L Chloride 109 H (98-107) mmol/L Carbon Dioxide 24.6 (21.0-32.0) mmol/L Anion Gap 11.9 BUN 11.0 (7.0-18.0) mg/dL Creatinine 0.77 (0.55-1.02) mg/dL Est GFR ( Amer) >60 (>=60) Est GFR (Non-Af Amer) >60 (>=60) BUN/Creatinine Ratio 14.3 Glucose 109 H (74-106) mg/dL Lactate 2.3 H* 1.4 (0.4-2.0) mmol/L Calcium 11.9 H (8.5-10.1) mg/dL Total Bilirubin 0.3 (0.2-1.0) mg/dL AST 7 L (15-37) U/L ALT 34 (14-59) U/L Alkaline Phosphatase 78 (46-116) U/L Total Protein 6.3 L (6.4-8.2) g/dL Albumin 3.1 L (3.4-5.0) g/dL Globulin 3.2 g/dL Albumin/Globulin Ratio 1.0 Urine Color Lt. yellow (YELLOW) Urine Clarity Clear (CLEAR) Urine pH 6.0 (5.0-9.0) Ur Specific Lucas <=1.005 A (1.005-1.025) Urine Protein Negative (NEG/TRACE) mg/dL Urine Glucose (UA) Negative (NEGATIVE) mg/dL Urine Ketones Negative (NEGATIVE) mg/dL Urine Occult Blood Negative (NEGATIVE) Urine Nitrite Negative (NEGATIVE) Urine Bilirubin Negative (NEGATIVE) Urine Urobilinogen 0.2 (0.2-1.0) EU/dL Ur Leukocyte Esterase Negative (NEGATIVE) Urine RBC 0-2 (0-2) #/HPF Urine WBC None seen (NONE SEEN) #/HPF Ur Squamous Epith Cells Rare (NONE/RARE) #/LPF Urine Crystals None seen (None Seen) #/HPF Urine Bacteria None seen (NONE SEEN) #/HPF Urine Casts None seen (NONE SEEN) #/LPF Urine Mucus None seen (NONE SEEN) Ur Culture Indicated? No Urine HCG, Qual Negative (NEGATIVE) Urine Opiates Screen Negative (NEGATIVE) Ur Buprenorphine Scrn Negative (NEGATIVE) Ur Oxycodone Screen Negative (NEGATIVE) Urine Methadone Screen Negative (NEGATIVE) Ur Barbiturates Screen Negative (NEGATIVE) U Tricyclic Antidepress Negative (NEGATIVE) Ur Phencyclidine Scrn Negative (NEGATIVE) Ur Amphetamines Screen Negative (NEGATIVE) U Methamphetamines Scrn Negative (NEGATIVE) U Benzodiazepines Scrn Positive A (NEGATIVE) Urine Cocaine Screen Negative (NEGATIVE) U Cannabinoids Screen Positive A (NEGATIVE) ECG Data Attestation: I personally reviewed and interpreted this ECG as follows: (Sinus rhythm 85 bpm, normal axis, normal intervals, no acute ST segment elevation or T wave inversion) Discharge Plan Discharge Stand Alone Forms: Portal Instructions Chief Complaint: Seizure Clinical Impression: Seizure Migraine Qualifiers: Migraine type: chronic migraine (15 or more days per month) without aura Status migrainosus presence: with status migrainosus Intractability: intractable Qualified Code(s): G43.711 - Chronic migraine without aura, intractable, with status migrainosus Patient Disposition: Home, Self-Care Time of Disposition Decision: 03:35 Condition: Good Prescriptions / Home Meds: No Action baclofen 10 mg tablet 10 mg PO TID diazepam 10 mg tablet 10 mg PO BID epinephrine 0.3 mg/0.3 mL auto-injector 0.3 mg IM Q10M PRN (Reason: anaphylaxis) Rx Instructions: for 2 doses ondansetron 4 mg tablet,disintegrating 4 mg PO Q6H PRN (Reason: nausea and vomiting) Qty: 20 0RF albuterol sulfate 2.5 mg /3 mL (0.083 %) solution for nebulization 2.5 mg inhalation Q4H PRN (Reason: shortness of breath or wheezing) trazodone 300 mg tablet 300 mg PO .qhs magnesium oxide 400 mg magnesium tablet 400 mg PO .qhs ketorolac 10 mg tablet 10 mg PO Q6H PRN (Reason: migraine headache) budesonide-formoterol [Symbicort] 160-4.5 mcg/actuation HFA aerosol inhaler 2 inh inhalation Q12H Qty: 10.2 0RF Aimovig Autoinjector 70 mg/mL auto-injector 70 mg SUBCUT ONCE PRN (Reason: migraine headache) lithium carbonate 300 mg tablet 300 mg PO Q12H tobramycin-dexamethasone 0.3-0.1 % drops,suspension 1 drp ophthalmic (eye) Q6H 7 Days Qty: 5 0RF Rx Instructions: apply to both eyes promethazine 25 mg tablet 25 mg PO Q6H PRN (Reason: nausea and vomiting) 3 Days Qty: 12 0RF ketorolac 10 mg tablet 10 mg PO Q8H PRN (Reason: pain) 2 Days Qty: 6 0RF tramadol 50 mg tablet 50 mg PO BID PRN (Reason: pain) 3 Days Qty: 6 0RF Rx Instructions: ICD: G43.11 estradiol 0.5 mg tablet 0.5 mg PO QAM ibuprofen 800 mg tablet 800 mg PO Q8H PRN (Reason: pain) promethazine 25 mg tablet 12.5 mg PO Q6H PRN (Reason: nausea and vomiting) orphenadrine citrate 100 mg tablet extended release 100 mg PO BID PRN (Reason: migraine) lamotrigine 200 mg tablet 200 mg PO BID diphenhydramine HCl [Benadryl] 25 mg capsule 75 mg PO Q6H PRN (Reason: migraine headache) Print Language: Luxembourger Instructions: Migraine Headache (ED), Recurrent Seizures in Adults (ED) Referrals: Lamont Blair MD [Primary Care Provider] - 1 week
[2023-08-15] VITALS (31 sets, daily range): BP systolic 119–154; BP diastolic 71–98; PULSE 76–86; O2SAT 96–97
--- NOTE | 2023-08-15 | CT_ITS ---
The [address] [address] Patient Name: MARGARET PLATT MRN: [id number] date: 1995 Sex: F Assigned Patient Location: ER Current Patient Location: ER Accession/Order Number: [id number] Exam Date: 08/15/2023 00:02 Report Date: 08/15/2023 01:57 At the request of: KIMMY MARKER Procedure: CT head/brain wo con EXAM: CT head/brain wo con HISTORY: seizure COMPARISON: CT head, 03/15/2023. TECHNIQUE: Nonenhanced CT imaging the head. Dose reduction techniques were achieved by using automated exposure control and/or adjustment of mA and/or kV according to patient size and/or use of iterative reconstruction technique. FINDINGS: No intracranial hemorrhage, edema, mass effect or midline shift is seen. The brain parenchyma, ventricles and extra-axial CSF spaces appear within normal limits. The calvarium and facial bones appear intact. There is an anterior right sphenoid retention cyst or polyp with mild ethmoid mucosal thickening. Remaining paranasal sinuses are otherwise clear. Bilateral mastoid air cells are clear. CT/CT head/brain wo con IMPRESSION: No acute intracranial abnormality. Electronically authenticated by: SILVIA WANG Date: 08/15/2023 01:57
[2023-08-15] MEDS: KETOROLAC TROMETHAMINE 30 MG/ML VIAL IVP (01:18)
[2023-08-15 02:27] LABS: Lactate/Lactic Acid 1.4 mmol/L (0.4-2.0)
[2023-08-15] MEDS: OXYCODONE HCL/ACETAMINOPHEN 5MG/325MG 1 TAB PO (02:51)
[2023-08-15] MEDS: PROMETHAZINE HCL 25 MG/ML VIAL 12.5 MG IM (02:51)
[2023-08-15] MEDS: DIPHENHYDRAMINE HCL 50 MG/ML VIAL 25 MG IV (02:51)
[2023-08-15] MEDS: METHYLPREDNISOLONE SOD SUCC PF 125 MG/2 ML VIAL IVP (02:52)
[2023-08-16 04:08] LABS: Lithium (Eskalith(R)), Serum 0.2 mmol/L (0.5-1.2)
== END 2023-08-15 03:57 | disposition home or self-care (01) ==
PROVIDERS: Emergency Provider Emergency Medicine; PCP Family Medicine
DX: G40.909 Epilepsy, unspecified, not intractable, without status epilepticus (principal); G43.711 Chronic migraine without aura, intractable, with status migrainosus
CPT/HCPCS: 36415; 51702; 70450; 80053; 80178; 80307; 81001; 83605; 84703; 85025; 93005; 96372; 96374; 96375; 99285; J1200; J1885; J2060; J2250; J2919

== ENCOUNTER 2023-08-16 08:24 | Observation (INO) | payer OTHER, SELFPAY ==
[2023-08-16] VITALS (32 sets, daily range): BP systolic 113–162; BP diastolic 68–115; PULSE 85–111; TEMP 36.6–36.9; O2SAT 92–96; BMI 47.2; BMI 50.6
--- NOTE | 2023-08-16 08:44 | ED_ITS ---
HPI HPI - General Adult General Chief complaint: Headache Stated complaint: HEADACHE Time Seen by Provider: 08/16/23 08:33 Source: patient and family Mode of arrival: Wheelchair Limitations: no limitations History of Present Illness HPI narrative: 27-year-old female presents for headache. She has had it for 3 weeks and has chronic headaches and sees a neurologist. It is severe and continuous and behind her eyes. No trauma fever or stiff neck. Related Data Home Medications ?Medication ?Instructions ?Recorded ?Confirmed baclofen 10 mg tablet 10 mg PO TID spasms 07/20/22 08/16/23 diazepam 10 mg tablet 10 mg PO BID 07/20/22 08/16/23 epinephrine 0.3 mg/0.3 mL 0.3 mg IM Q10M PRN anaphylaxis 07/20/22 08/16/23 injection, auto-injector estradiol 0.5 mg tablet 0.5 mg PO QAM 01/06/23 08/16/23 diphenhydramine HCl 25 mg capsule 75 mg PO Q6H PRN migraine headache 01/26/23 08/16/23 (Benadryl) ibuprofen 800 mg tablet 800 mg PO Q8H PRN pain 01/26/23 08/16/23 lamotrigine 200 mg tablet 200 mg PO BID 01/26/23 08/16/23 orphenadrine citrate 100 mg 100 mg PO BID PRN migraine 01/26/23 08/16/23 tablet,extended release promethazine 25 mg tablet 12.5 mg PO Q6H PRN nausea and 01/26/23 08/16/23 vomiting albuterol sulfate 2.5 mg/3 mL 2.5 mg inhalation Q4H PRN 03/03/23 08/16/23 (0.083 %) solution for nebulization shortness of breath or wheezing ketorolac 10 mg tablet 10 mg PO Q6H PRN migraine headache 03/03/23 08/16/23 magnesium oxide 400 mg PO .qhs 03/03/23 08/16/23 trazodone 300 mg tablet 300 mg PO .qhs 03/03/23 08/16/23 erenumab-aooe 70 mg/mL 70 mg subcut ONCE PRN migraine 04/27/23 08/16/23 subcutaneous auto-injector headache (Aimovig Autoinjector) lithium carbonate 300 mg tablet 300 mg PO Q12H 04/27/23 08/16/23 Previous Rx's ?Medication ?Instructions ?Recorded ondansetron 4 mg disintegrating 4 mg PO Q6H PRN nausea and 02/26/23 tablet vomiting #20 tabs budesonide-formoterol HFA 160 2 inh inhalation Q12H #10.2 grams 03/04/23 mcg-4.5 mcg/actuation aerosol inhaler (Symbicort) tobramycin 0.3 %-dexamethasone 0.1 1 drp ophthalmic (eye) Q6H 7 days 05/12/23 % eye drops,suspension #5 mL ketorolac 10 mg tablet 10 mg PO Q8H PRN pain 2 days #6 05/13/23 tabs promethazine 25 mg tablet 25 mg PO Q6H PRN nausea and 05/13/23 vomiting 3 days #12 tabs tramadol 50 mg tablet 50 mg PO BID PRN pain 3 days #6 05/13/23 tabs Allergies Allergy/AdvReac Type Severity Reaction Status Date / Time dihydroergotamine Allergy Unknown Verified 08/16/23 08:30 vortioxetine Allergy Unknown Verified 08/16/23 08:30 buspirone Allergy Hives Verified 08/16/23 08:30 carbamazepine Allergy Unknown Verified 08/16/23 08:30 levetiracetam [From Keppra] Allergy ITCHING Verified 08/16/23 08:30 azithromycin [From Zithromax] AdvReac Intermediate Hives Verified 08/16/23 08:30 bee venom protein (honey bee) AdvReac Intermediate Hives Verified 08/16/23 08:30 metoclopramide [From Reglan] AdvReac Intermediate panic Verified 08/16/23 08:30 adhesive tape AdvReac Mild Rash Verified 08/16/23 08:30 cephalexin [From Keflex] AdvReac Mild Hives Verified 08/16/23 08:30 dextromethorphan AdvReac Mild Unknown Verified 08/16/23 08:30 [From [place] DM] pyrilamine [From [place] DM] AdvReac Mild Unknown Verified 08/16/23 08:30 propranolol AdvReac Hives Verified 08/16/23 08:30 Opioid HPI Opioid Management Most Recent Opioid Data: Last Pain Scale 10 08/16/23 10:59 Last ED Pain Assessment 08/16/23 09:54 Last MAR Pain Assessment 08/16/23 10:59 Last ORT Total Score 1 05/12/23 16:27 Last ORT Risk Category Low Risk 05/12/23 16:27 Ur Phencyclidine Scrn Negative (NEGATIVE) 08/14/23 22:50 Review of Systems ROS Narrative A ten point review of systems is negative except as noted above. PFSH PFSH Medical History Chronic pain disorder ?G89.4 - Chronic pain syndrome (ICD-10) Conjunctivitis ?H10.9 - Unspecified conjunctivitis (ICD-10) Migraine ?G43.909 - Migraine, unspecified, not intractable, without status migrainosus (ICD-10) Viral upper respiratory tract infection with cough ?J06.9 - Acute upper respiratory infection, unspecified (ICD-10) Seizure disorder ?G40.909 - Epilepsy, unspecified, not intractable, without status epilepticus (ICD-10) Bipolar disorder ?F31.9 - Bipolar disorder, unspecified (ICD-10) Pelvic pain ?R10.2 - Pelvic and perineal pain (ICD-10) Headache ?R51.9 - Headache, unspecified (ICD-10) Bilateral occipital neuralgia ?M54.81 - Occipital neuralgia (ICD-10) Migraine ?G43.909 - Migraine, unspecified, not intractable, without status migrainosus (ICD-10) Post-op pain ?G89.18 - Other acute postprocedural pain (ICD-10) Combative behavior ?R46.89 - Other symptoms and signs involving appearance and behavior (ICD-10) Postoperative nausea and vomiting ?R11.2 - Nausea with vomiting, unspecified (ICD-10) ?Z98.890 - Other specified postprocedural states (ICD-10) Vaginal bleeding ?N93.9 - Abnormal uterine and vaginal bleeding, unspecified (ICD-10) Abscess of vagina ?N76.0 - Acute vaginitis (ICD-10) PCOS (polycystic ovarian syndrome) ?E28.2 - Polycystic ovarian syndrome (ICD-10) Mitral valve prolapse ?I34.1 - Nonrheumatic mitral (valve) prolapse (ICD-10) Vaginal delivery ?O80 - Encounter for full-term uncomplicated delivery (ICD-10) Nausea ?R11.0 - Nausea (ICD-10) GERD (gastroesophageal reflux disease) ?K21.9 - Gastro-esophageal reflux disease without esophagitis (ICD-10) Depression ?F32.A - Depression, unspecified (ICD-10) Blood in urine ?R31.9 - Hematuria, unspecified (ICD-10) Acne ?L70.9 - Acne, unspecified (ICD-10) Dyspareunia Brain mass ?G93.89 - Other specified disorders of brain (ICD-10) Pneumonia ?J18.9 - Pneumonia, unspecified organism (ICD-10) Kidney stones ?N20.0 - Calculus of kidney (ICD-10) COVID-19 ?U07.1 - COVID-19 (ICD-10) Bronchitis ?J40 - Bronchitis, not specified as acute or chronic (ICD-10) Asthma ?J45.909 - Unspecified asthma, uncomplicated (ICD-10) Stress incontinence ?N39.3 - Stress incontinence (female) (male) (ICD-10) Dysuria ?R30.0 - Dysuria (ICD-10) Seizure ?R56.9 - Unspecified convulsions (ICD-10) Neck pain ?M54.2 - Cervicalgia (ICD-10) Migraine ?G43.909 - Migraine, unspecified, not intractable, without status migrainosus (ICD-10) Low back pain ?M54.50 - Low back pain, unspecified (ICD-10) Head injury ?S09.90XA - Unspecified injury of head, initial encounter (ICD-10) Anxiety ?F41.9 - Anxiety disorder, unspecified (ICD-10) Surgical History H/O laparoscopy (07/21/22) ?Z98.890 - Other specified postprocedural states (ICD-10) S/P RAVI-BSO ?Z90.710 - Acquired absence of both cervix and uterus (ICD-10) ?Z90.722 - Acquired absence of ovaries, bilateral (ICD-10) ?Z90.79 - Acquired absence of other genital organ(s) (ICD-10) Hx laparoscopic cholecystectomy ?Z90.49 - Acquired absence of other specified parts of digestive tract (ICD- 10) H/O: ?Z98.891 - History of uterine scar from previous surgery (ICD-10) History of appendectomy ?Z90.49 - Acquired absence of other specified parts of digestive tract (ICD- 10) Family History Other Acid reflux Acute renal disease Afib Chromosomal disorder Delayed developmental milestones Diabetes Family history of hypertension High cholesterol Neuro-irritability due to autonomic dysfunction 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 General: The patient appears uncomfortable and in no distress. Skin: Warm, dry, no pallor noted. There is no rash noted. Head: Normocephalic, atraumatic, no nuchal rigidity Eye: Normal conjunctiva, no drainage, EOMI. PERRL Ears, Nose, Mouth, and Throat: oral mucosa is moist. Nares patent. Cardiovascular: Regular Rate and Rhythm Respiratory: Patient is in no distress, no accessory muscle use, lungs are clear to auscultation, no wheezing, rales or rhonchi GI: Soft and nontender Musculoskeletal: The patient has no evidence of calf tenderness, no pitting edema, symmetrical pulses noted bilaterally Neurological: A&O, normal speech Psychiatric: Cooperative Constitutional Vital Signs, click to edit/add: Last Vital Signs Temp 97.9 F 08/16/23 08:27 Pulse 87 08/16/23 08:27 Resp 16 08/16/23 08:27 BP 141/93 H 08/16/23 11:30 Pulse Ox 94 L 08/16/23 11:40 Course Vital Signs Vital signs: Vital Signs Temperature 97.9 F 08/16/23 08:27 Pulse Rate 87 08/16/23 08:27 Respiratory Rate 16 08/16/23 08:27 Blood Pressure 148/70 H 08/16/23 08:27 Pulse Oximetry 95 08/16/23 08:27 Temperature 97.9 F 08/16/23 08:27 Pulse Rate 87 08/16/23 08:27 Respiratory Rate 16 08/16/23 08:27 Blood Pressure 141/93 H 08/16/23 11:30 Pulse Oximetry 94 L 08/16/23 11:40 Medical Decision Making MDM Narrative Medical decision making narrative: She was given multiple medications without change in her headache. Mother states that the patient had a seizure here in the emergency department which is not unusual for her. CT is negative. Mother is requesting admission to the hospital and I have spoken to Dr. Brady and the patient will be admitted for observation. I have no clinical suspicion of meningitis in this patient. Differential Diagnosis Differential Diagnosis: Migraine headache, intracranial hemorrhage Imaging Data CT scan - head: Radiologist's impression: ITS Impressions Head CT 08/16/23 11:46 IMPRESSION: 1. No acute intracranial abnormality. Electronically authenticated by: JUSTIN JENNINGS Date: 08/16/2023 12:19 Discharge Plan Discharge Chief Complaint: Headache Clinical Impression: Intractable headache Patient Disposition: Admitted as Observation Time of Disposition Decision: 13:05 Condition: Good
[2023-08-16] MEDS: DIPHENHYDRAMINE HCL 50 MG/ML VIAL IV (09:15)
[2023-08-16] MEDS: METHYLPREDNISOLONE SOD SUCC PF 125 MG/2 ML VIAL IVP (09:16)
[2023-08-16] MEDS: PROMETHAZINE HCL 12.5 MG in 0.9 % SODIUM CHLORIDE 50 ML 202 MG IV (09:16)
[2023-08-16] MEDS: HYDROMORPHONE HCL 1 MG/ML CARTRIDGE IV (10:59)
[2023-08-16] MEDS: MAGNESIUM SULFATE/WATER 2 GM/50 ML PREMIX IV (11:00)
[2023-08-16] MEDS: 0.9 % SODIUM CHLORIDE 1,000 ML 1000 ML IV (11:00)
--- NOTE | 2023-08-16 11:46 | CT_ITS ---
The [address] [address] Patient Name: MARGARET PLATT MRN: [id number] date: 1995 Sex: F Assigned Patient Location: ER Current Patient Location: ER Accession/Order Number: [id number] Exam Date: 08/16/2023 11:56 Report Date: 08/16/2023 12:19 At the request of: SUKHDEEP DOCKERY Procedure: CT head/brain wo con EXAM: CT head/brain wo con HISTORY: PINEDA COMPARISON: CT head 08/15/2023. TECHNIQUE: Axial soft tissue and bone windows of the head with coronal and sagittal reformats. CT dose reduction technique was used including Automated Exposure Control. Findings: The paranasal sinuses and mastoid air cells are well aerated. No air-fluid levels. No extra-axial fluid collection. No intra-axial or extra-axial bleed. No mass effect or midline shift. The grant-white matter differentiation is preserved. The brain parenchymal volume is age appropriate. The ventricles are nondilated. The basal cisterns are patent. The craniovertebral junction is unremarkable. CT/CT head/brain wo con IMPRESSION: 1. No acute intracranial abnormality. Electronically authenticated by: JUSTIN JENNINGS Date: 08/16/2023 12:19
[2023-08-16 14:19] LABS: Basophils Percent Auto 0.1 % (0.2-2.0); Eosinophils Percent Auto 0.1 % (0.9-7.0); Hematocrit 37.3 % (36.0-48.0); Immature Granulocytes Abs Auto 0.05 10^3/uL (0.00-0.03); Immature Granulocytes Pct Auto 0.4 % (0.0-0.5); Lymphocytes Percent Auto 7.7 % (20.5-60.0); Mean Corpuscular HGB Conc 32.2 g/dL (29.9-35.2); Mean Corpuscular Hemoglobin 28.8 pg (26.7-34.0); Mean Corpuscular Volume 89.4 fL (81.0-99.0); Mean Platelet Volume 9.8 fL (9.5-13.5); Monocytes Absolute Auto 0.1 10^3/uL (0.3-0.8); Neutrophils Absolute Auto 11.3 10^3/uL (1.4-6.5); Neutrophils Percent Auto 90.7 % (43.0-75.0); Platelet Count 278 10^3/uL (150-450); Red Blood Count 4.17 10^6/uL (4.20-5.40); Red Cell Distribution Width 13.2 % (11.0-15.0); White Blood Count 12.5 10^3/uL (4.0-11.0)
--- NOTE | 2023-08-16 14:27 | P.HP_ITS ---
<Statement entered by Abdifatah Brady MD - 08/16/23 19:07> This documentation has been reviewed and approved. He was seen and evaluated on the medical surgical floor, difficult to arouse, reviewed chart, agree with input and findings from nurse practitioner. HPI H&P: HPI History of Present Illness Chief complaint: HEADACHE/ INTRACTABLE HEADACHE Narrative: 08/16/23 1400 This is a 27-year-old female patient with a past medical history significant for migraine headaches, seizures, bipolar disorder GERD, depression, and asthma; who presented to the ED complaining of an intractable headache for the last 2 or 3 weeks with waxing and waning characteristics. She was seen in the ER 2 days ago due to multiple seizures and discharged home. Over the last couple of days her headaches have been more intense and today she asked her mother to bring her to the ED for further evaluation. All history is obtained from the mother and ED documentation as the patient is currently postictal, is somnolent, and not answering questions. She denied trauma, fever, or stiff neck to the ED provider. Workup in the ED included a CT of the head which was benign. Labs have been ordered but are still pending as phlebotomy has had difficulty drawing the patient. She was treated for her migraine headaches with a broad range of therapies that are usually helpful for the patient including Solu-Medrol, magnesium, Phenergan, Benadryl, IV fluids, and 1 dose of Dilaudid. Her mother reports that she has had 3 seizures since arrival in the ED but these have not been witnessed by clinical staff. Her mother reports that her seizures are usually migraine or stress-induced. The patient is being admitted in observation due to her recurrent seizures to the hospitalist service. The patient follows with an outpatient neurology group at [facility] and an outpatient nerve block is planned for this Monday in [place]. At the time of my exam the patient was hypersomnolent and not arousing to stimuli. She did awaken during a lab draw attempt but was clearly postictal, disoriented, and not answering all questions appropriately although she did answer some before returning back to sleep. She does not appear to be in any significant pain at the time of my exam. Opioid HPI Opioid Management Most Recent Pain and Opioid Data: Last Pain Scale 10 08/16/23 10:59 Last ED Pain Assessment 08/16/23 09:54 Last MAR Pain Assessment 08/16/23 10:59 Last ORT Total Score 0 08/16/23 14:51 Last ORT Risk Category Low Risk 08/16/23 14:51 Ur Phencyclidine Scrn Negative (NEGATIVE) 08/14/23 22:50 Review of Systems ROS Status of ROS unobtainable due to medical condition [facility] History (Updated 08/16/23 @ 15:04 by Eloina Ledezma NP) Chronic pain disorder ?G89.4 - Chronic pain syndrome (ICD-10) Migraine ?G43.909 - Migraine, unspecified, not intractable, without status migrainosus (ICD-10) Seizure disorder ?G40.909 - Epilepsy, unspecified, not intractable, without status epilepticus (ICD-10) Bipolar disorder ?F31.9 - Bipolar disorder, unspecified (ICD-10) Pelvic pain ?R10.2 - Pelvic and perineal pain (ICD-10) Bilateral occipital neuralgia ?M54.81 - Occipital neuralgia (ICD-10) Combative behavior ?R46.89 - Other symptoms and signs involving appearance and behavior (ICD-10) PCOS (polycystic ovarian syndrome) ?E28.2 - Polycystic ovarian syndrome (ICD-10) Mitral valve prolapse ?I34.1 - Nonrheumatic mitral (valve) prolapse (ICD-10) GERD (gastroesophageal reflux disease) ?K21.9 - Gastro-esophageal reflux disease without esophagitis (ICD-10) Depression ?F32.A - Depression, unspecified (ICD-10) Blood in urine ?R31.9 - Hematuria, unspecified (ICD-10) Acne ?L70.9 - Acne, unspecified (ICD-10) Dyspareunia Brain mass ?G93.89 - Other specified disorders of brain (ICD-10) Kidney stones ?N20.0 - Calculus of kidney (ICD-10) COVID-19 ?U07.1 - COVID-19 (ICD-10) Bronchitis ?J40 - Bronchitis, not specified as acute or chronic (ICD-10) Asthma ?J45.909 - Unspecified asthma, uncomplicated (ICD-10) Stress incontinence ?N39.3 - Stress incontinence (female) (male) (ICD-10) Dysuria ?R30.0 - Dysuria (ICD-10) Anxiety ?F41.9 - Anxiety disorder, unspecified (ICD-10) Surgical History H/O laparoscopy (07/21/22) ?Z98.890 - Other specified postprocedural states (ICD-10) S/P RAVI-BSO ?Z90.710 - Acquired absence of both cervix and uterus (ICD-10) ?Z90.722 - Acquired absence of ovaries, bilateral (ICD-10) ?Z90.79 - Acquired absence of other genital organ(s) (ICD-10) Hx laparoscopic cholecystectomy ?Z90.49 - Acquired absence of other specified parts of digestive tract (ICD- 10) H/O: ?Z98.891 - History of uterine scar from previous surgery (ICD-10) History of appendectomy ?Z90.49 - Acquired absence of other specified parts of digestive tract (ICD- 10) Family History Other Acid reflux Acute renal disease Afib Chromosomal disorder Delayed developmental milestones Diabetes Family history of hypertension High cholesterol Neuro-irritability due to autonomic dysfunction 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 level of school completed/degree received: Associate degree: occupational, technical, vocational program Gender Identity: female Meds Home Medications and Allergies Home Medications ?Medication ?Instructions ?Recorded ?Confirmed ?Type baclofen 10 mg tablet 10 mg PO TID spasms 07/20/22 08/16/23 History diazepam 10 mg tablet 5 mg PO QID PRN seizures 07/20/22 08/16/23 History epinephrine 0.3 mg/0.3 mL 0.3 mg IM Q10M PRN anaphylaxis 07/20/22 08/16/23 History injection, auto-injector diphenhydramine HCl 25 mg capsule 75 mg PO Q6H PRN migraine headache 01/26/23 08/16/23 History (Benadryl) trazodone 300 mg tablet 300 mg PO .qhs 03/03/23 08/16/23 History erenumab-aooe 70 mg/mL 70 mg subcut ONCE PRN migraine 04/27/23 08/16/23 History subcutaneous auto-injector headache (Aimovig Autoinjector) lithium carbonate 300 mg tablet 600 mg PO Q12H 04/27/23 08/16/23 History ketorolac 10 mg tablet 10 mg PO Q8H PRN pain 2 days #6 05/13/23 08/16/23 Rx tabs promethazine 25 mg tablet 25 mg PO Q6H PRN nausea and 05/13/23 08/16/23 Rx vomiting 3 days #12 tabs albuterol sulfate 90 mcg/actuation 2 puff inhalation Q4H PRN 08/16/23 08/16/23 History aerosol inhaler shortness of breath or wheezing estradiol 1 mg tablet 1 mg PO QAM 08/16/23 08/16/23 History lamotrigine 150 mg tablet 150 mg PO BID 08/16/23 08/16/23 History magnesium oxide 400 mg (241.3 mg 400 mg PO .qhs 08/16/23 08/16/23 History magnesium) tablet promethazine 12.5 mg tablet 12.5 mg PO Q6H PRN nausea and 08/16/23 08/16/23 History vomiting vilazodone 40 mg tablet 40 mg PO DAILY 08/16/23 08/16/23 History zolmitriptan 5 mg nasal spray 1 spray intranasal Q2H PRN headache 08/16/23 08/16/23 History Allergies Allergy/AdvReac Type Severity Reaction Status Date / Time dihydroergotamine Allergy Unknown Verified 08/16/23 08:30 vortioxetine Allergy Unknown Verified 08/16/23 08:30 buspirone Allergy Hives Verified 08/16/23 08:30 carbamazepine Allergy Unknown Verified 08/16/23 08:30 levetiracetam [From Keppra] Allergy ITCHING Verified 08/16/23 08:30 azithromycin [From Zithromax] AdvReac Intermediate Hives Verified 08/16/23 08:30 bee venom protein (honey bee) AdvReac Intermediate Hives Verified 08/16/23 08:30 metoclopramide [From Reglan] AdvReac Intermediate panic Verified 08/16/23 08:30 adhesive tape AdvReac Mild Rash Verified 08/16/23 08:30 cephalexin [From Keflex] AdvReac Mild Hives Verified 08/16/23 08:30 dextromethorphan AdvReac Mild Unknown Verified 08/16/23 08:30 [From [place] DM] pyrilamine [From [place] DM] AdvReac Mild Unknown Verified 08/16/23 08:30 propranolol AdvReac Hives Verified 08/16/23 08:30 Exam Constitutional Vital Signs, click to edit/add: Last Vital Signs Temp 97.9 F 08/16/23 08:27 Pulse 87 08/16/23 08:27 Resp 16 08/16/23 08:27 BP 123/72 08/16/23 13:45 Pulse Ox 96 08/16/23 14:00 Common normals: no apparent distress General appearance: comfortable Nutritional appearance: obese HENMT Common normals: normocephalic, head/scalp atraumatic, hearing grossly normal bilaterally, external nose normal and moist oral mucous membranes Eye Common normals: PERRL, EOMs intact bilaterally, conjunctivae normal and no scleral icterus Alignment: alignment normal Eyelid: eyelids normal Neck & C-Spine Common normals: full ROM, supple and no JVD Chest Common normals: inspection of chest normal Chest: symmetrical chest wall rise Respiratory Common normals: normal respiratory effort, no retractions, no use of accessory muscles and clear to auscultation bilaterally Cardio Common normals: no JVD, regular rate, regular rhythm, S1 normal heart sound, S2 normal heart sound, no gallops, no clicks, no murmurs, no rub and peripheral pulses 2+ throughout GI Common normals: Normal to inspection, nondistended, normoactive bowel sounds present, soft to palpation, non-tender, no hepatosplenomegaly, no masses and no bruits Bladder/kidney exam: bladder normal to palpation Back & Pelvis Common normals: thoracic and lumbar spine normal to inspection Extremity Common normals: normal capillary refill and no pedal edema General: normal exam except as noted; no clubbing and no cyanosis Neuro Robyn Coma Scale: GCS not evaluated Common normals: moves all extremities Sensorium/orientation: somnolent and other (Unable to complete neurologic exam d/t hypersomnolence) Psych Common normals: mental status grossly normal, thought process normal, affect normal and activity/motor behavior normal Thought process: normal thought process Results Pulse Oximetry Attestation: I have reviewed the pertinent pulse oximetry results. Imaging CT scan - head: Attestation: I have reviewed the pertinent imaging results. Radiologist's impression: IMPRESSION: 1. No acute intracranial abnormality. Assessment and Plan Assessment and Plan (1) Intractable headache: Assessment and Plan: Acute on Chronic * Adm observation * Long hx of intractable migraines * Follows w/ Neurology group * Nerve block planned for 08/18/23 at * ED gave: Phenergan, Benadryl, Solu-medrol, magnesium, and Dilaudid * Pt is currently somnolent and likely post-ictal but does not appear to be in pain * CT brain unremarkable * IVP Toradol PRN - avoid narcotics if possible d/t rebound PINEDA potential * May be in part d/t dehydration - see below * Continue home migraine medications including Zomig and baclofen * No clinical concern for meningitis or cervical/cranial trauma (2) Seizure: Assessment and Plan: Acute on Chronic * Long history of poorly controlled seizures - follows with neurology at * Pt's mother reports multiple seizures in the ED but these were not witnessed by clinical staff * Pt appears post-ictal at the time of exam - hypersomnolent and disoriented on wakening * Seizure precautions * Continue home seizure medications including lamotrigine and prn diazepam * Consider neurology consult pending clinical course. Plan to have her follow up on Monday w/ Neuro as scheduled. (3) Dehydration: Assessment and Plan: Acute * Pt appears clinically dry * Pre-renal azotemia on labs * 1 liter IVF bolus given in ED * LR maintenance IVF at 125/hr * CMP in AM (4) Leukocytosis: Assessment and Plan: Acute * Unclear etiology - no infectious source identified to date * Pt afebrile w/ stable VS * May be reactive after seizure activity * CXR and UA w/ reflex Cx have been ordered to further assess for possible infectious source * No indication for antibiotics at this time (5) Bipolar disorder: Assessment and Plan: Chronic * Continue home Kieler, vilazodone, lamotrigine, & trazodone Qualifiers: Active/Remission status: in full remission Most recent bipolar episode type: unspecified type Qualified Code(s): F31.70 - Bipolar disorder, currently in remission, most recent episode unspecified (6) Asthma: Assessment and Plan: Chronic * continue home albuterol HFA
[2023-08-16 14:33] LABS: Anion Gap 15.3; BUN Creatinine Ratio 20.2; Calcium 8.4 mg/dL (8.5-10.1); Carbon Dioxide 24.1 mmol/L (21.0-32.0); Chloride 106 mmol/L (98-107); Estimated GFR (African America >60 (>=60); Estimated GFR (Non-African Ame >60 (>=60); Glucose 136 mg/dL (74-106); Potassium 4.4 mmol/L (3.5-5.1); Sodium 141 mmol/L (136-145)
--- NOTE | 2023-08-16 15:06 | XR_ITS ---
The [address] [address] Patient Name: MARGARET PLATT MRN: [id number] date: 1995 Sex: F Assigned Patient Location: [place] Current Patient Location: [place] Accession/Order Number: [id number] Exam Date: 08/16/2023 15:23 Report Date: 08/16/2023 15:57 At the request of: DANIEL NEW Procedure: XR chest 1V EXAM: XR chest 1V HISTORY: leukocytosis/cough COMPARISON: 03/03/2023 TECHNIQUE: FINDINGS: LUNGS: No significant pulmonary parenchymal abnormalities. VASCULATURE: No increased pulmonary vasculature. PLEURA: No pneumothorax, effusion, or pleural thickening. CARDIAC: No cardiomegaly or cardiac silhouette abnormality. MEDIASTINUM: No visible mass or adenopathy. BONES: No fracture or visible bone lesion. OTHER: Negative. XR/XR chest 1V IMPRESSION: No acute cardiopulmonary process Electronically authenticated by: NUZHAT BAUMANN Date: 08/16/2023 15:57
[2023-08-16] MEDS: LACTATED RINGER'S SOLUTION 1,000 ML 125 ML IV ×2 (15:13→23:21)
[2023-08-16 15:28] LABS: Bilirubin Urine NEGATIVE (NEGATIVE); Blood Urine NEGATIVE (NEGATIVE); Clarity Urine CLEAR (CLEAR); Color Urine YELLOW (YELLOW); Glucose Urine UA NEGATIVE (NEGATIVE); Ketones Urine NEGATIVE (NEGATIVE); Leukocyte Esterase Urine NEGATIVE (NEGATIVE); Nitrite Urine NEGATIVE (NEGATIVE); Protein Urine NEGATIVE (NEG/TRACE); Specific Gravity Urine >=1.030 (1.005-1.025); Urobilinogen Urine 0.2 EU/dL (0.2-1.0)
[2023-08-16 15:29] LABS: Urine Microscopic Indicated NO
[2023-08-16] MEDS: KETOROLAC TROMETHAMINE 30 MG/ML VIAL IVP (16:16)
[2023-08-16] MEDS: ONDANSETRON PF 4 MG/2 ML VIAL IV (16:19)
[2023-08-16] MEDS: TRAZODONE HCL 150 MG TABLET 300 MG PO (22:22)
[2023-08-16] MEDS: LITHIUM CARBONATE 150 MG CAPSULE 600 MG PO (22:22)
[2023-08-16] MEDS: BACLOFEN 10 MG TABLET PO (22:22)
[2023-08-16] MEDS: LAMOTRIGINE 100 MG TABLET 150 MG PO (22:22)
[2023-08-16] MEDS: MAGNESIUM OXIDE 400 MG TABLET PO (22:22)
--- NOTE | 2023-08-16 22:35 | PC.NURSE ---
Patient called out stating she needed to use restroom. 2+ staff stood by patient. She took one step and stopped. She stared off and wouldn't respond to voice. Staff attempted to return patient to bed and her knees gave out and fell back onto bed. Patient was unresponsive to sternal rub. Vitals stable.
[2023-08-17] VITALS (7 sets, daily range): BP systolic 110–122; BP diastolic 56–70; PULSE 70–98; TEMP 36.8; O2SAT 94–95
--- NOTE | 2023-08-17 | PC.NURSE ---
Addendum entered by Mary Charles RN 08/17/23 02:29: Er saw patient on [facility] floor [ Original Note: Patient called out crying sating she could not feel her legs. Painful stimuli applied to feet. Patient stated she could not feel stimuli up to bilateral knees. Paint Prepper strength equal and strong, pupils equal and reactive. Dr notified. Patient had been lethargic off and on
--- NOTE | 2023-08-17 | PC.NURSE ---
Patient's medications locked in nurse cupboard.
[2023-08-17] MEDS: NALOXONE HCL 0.4 MG/ML VIAL 0.400000000000000022 MG IV (01:07)
[2023-08-17] MEDS: KETOROLAC TROMETHAMINE 30 MG/ML VIAL IVP (02:45)
[2023-08-17] MEDS: BACLOFEN 10 MG TABLET PO (05:09)
--- NOTE | 2023-08-17 05:20 | PC.NURSE ---
2 pink pills found on patients bed that was not given to her by editorial writer.
[2023-08-17 05:42] LABS: Basophils Percent Auto 0.1 % (0.2-2.0); Eosinophils Percent Auto 0.2 % (0.9-7.0); Hematocrit 33.1 % (36.0-48.0); Hemoglobin 10.5 g/dL (12.0-16.0); Immature Granulocytes Abs Auto 0.07 10^3/uL (0.00-0.03); Immature Granulocytes Pct Auto 0.6 % (0.0-0.5); Lymphocytes Absolute Auto 1.4 10^3/uL (1.2-3.8); Mean Corpuscular HGB Conc 31.7 g/dL (29.9-35.2); Mean Corpuscular Hemoglobin 28.8 pg (26.7-34.0); Mean Corpuscular Volume 90.9 fL (81.0-99.0); Mean Platelet Volume 9.8 fL (9.5-13.5); Monocytes Absolute Auto 0.6 10^3/uL (0.3-0.8); Monocytes Percent Auto 4.8 % (1.7-12.0); Neutrophils Absolute Auto 9.7 10^3/uL (1.4-6.5); Neutrophils Percent Auto 82.3 % (43.0-75.0); Platelet Count 269 10^3/uL (150-450); Red Blood Count 3.64 10^6/uL (4.20-5.40); Red Cell Distribution Width 13.2 % (11.0-15.0); White Blood Count 11.7 10^3/uL (4.0-11.0)
--- NOTE | 2023-08-17 05:53 | PM.EN ---
Event Note Event Note: [id number] Notified by nursing for concern patient may have had a focal seizure. Patient was assisted up to go to bathroom. She took a step, stopped, and stared off and would not respond verbally Her legs out while getting her back to bed. She did not fall. She appeared to be postictal. VSS. Patient had waxing and waning of alertness and lethargy. Fall, seizure precautions, neuro checks in place. Nursing holding on giving pain meds. Later, notified patient complaining she could not feel her legs below her knees. Also, patient was incontinent of urine, but reported she had felt herself urinate on herself. Neuro assessment by nursing and laborer powerhouse revealed decreased sensation to light and painful stimuli. PERRL, skin warm to touch, pulses palpable, cap refill adequate. Patient continued to be lethargic. Narcan 0.4 mg IV x1 ordered. Discussed case with Dr. Driver, ED , which kindly agreed to evaluate patient. She updated me that patient appeared to be in a postictal state which likely contributed to sensation loss of BLE and other symptoms. Her eval noted patient had decreased sensation in BLE as above. Also, rectal exam noted patent could feel finger, but couldn't squeeze it. Noted patient more awake after Narcan and called her mother about being given Narcan. Nursing reported she continued to be upset and crying about being given Narcan. Later, nursing notified me that she found 2 Benadryl tabs laying in patient's bed, which she did not give her.
[2023-08-17 06:08] LABS: Alanine Aminotransferase 22 U/L (14-59); Albumin Level 2.9 g/dL (3.4-5.0); Alkaline Phosphatase 59 U/L (46-116); Anion Gap 11.2; Aspartate Amino Transferase 9 U/L (15-37); BUN Creatinine Ratio 29.9; Bilirubin Total 0.1 mg/dL (0.2-1.0); Calcium 8.1 mg/dL (8.5-10.1); Chloride 109 mmol/L (98-107); Estimated GFR (African America >60 (>=60); Estimated GFR (Non-African Ame >60 (>=60); Globulin 2.9 g/dL; Glucose 135 mg/dL (74-106); Potassium 4.2 mmol/L (3.5-5.1); Sodium 142 mmol/L (136-145); Total Protein 5.8 g/dL (6.4-8.2)
[2023-08-17 08:47] LABS: Amphetamine Screen Urine NEGATIVE (NEGATIVE); Barbiturates Screen Urine NEGATIVE (NEGATIVE); Benzodiazepines Screen Urine POSITIVE (NEGATIVE); Buprenorphine Screen Urine NEGATIVE (NEGATIVE); Cannabinoid Screen Urine POSITIVE (NEGATIVE); Cocaine Screen Urine NEGATIVE (NEGATIVE); Methadone Screen Urine NEGATIVE (NEGATIVE); Methamphetamines Screen Urine NEGATIVE (NEGATIVE); Opiate Screen Urine POSITIVE (NEGATIVE); Oxycodone Screen Urine NEGATIVE (NEGATIVE); Phencyclidine Screen Urine NEGATIVE (NEGATIVE); Tricyclic Antidepressant Urine NEGATIVE (NEGATIVE)
--- NOTE | 2023-08-17 08:47 | P.DS_ITS ---
<Statement entered by Abdifatah Brady MD - 08/17/23 22:58> This documentation has been reviewed and approved. [facility] and [facility] at [facility] no complaints except the persisting headache - reviewed plan with [employer], pt with procedure with neurology tomorrow so pt is comfortable wth d/c to home DS: Providers Provider Date of admission: 08/16/23 13:34 Primary care physician: Lamont Blair MD Discharging clinician: Eloina Ledezma DS: Diagnosis Discharge Diagnosis (1) Intractable headache: (2) Seizure: (3) Dehydration: (4) Leukocytosis: (5) Bipolar disorder: Qualifiers: Active/Remission status: in full remission Most recent bipolar episode type: unspecified type Qualified Code(s): F31.70 - Bipolar disorder, currently in remission, most recent episode unspecified (6) Asthma: DS: Summary Hospital Course Hospital Course: The patient was admitted in observation with intractable migraine headache and recurrent seizures. She was treated with a broad cocktail of medications including Phenergan, Benadryl, Toradol, Solu-Medrol and magnesium. Brief episodes of seizure-like activity were documented by staff but the patient's postictal period and symptoms were not always consistent with true seizure activity. Of note, nursing staff found the patient difficult to arouse overnight and she was eventually given Narcan. The patient awoke after Narcan was given and she was very angry that she was given Narcan. It was discovered that the patient had brought in all of her home oral prescriptions for Phenergan and Benadryl and had been taking them in addition to what she was given at the hospital. In addition she had also taken Tylenol with codeine that have been prescribed to her mother and this was likely the source of her hypersomnolence overnight (w/ effective narcan reversal). The patient's headache appears to have improved this morning and she is requesting to be discharged. She has an appointment tomorrow with neurology at the [facility] for a nerve block to assist with her migraine management. She is being discharged home in stable condition and is to follow-up with her regular neurologist as previously scheduled. Time Spent with Patient Time attestation: Total time spent providing and/or coordinating discharge services: Time spent: greater than 30 minutes Specific discharge activities: Physical exam, discussion of discharge plan, questions answered. Exam Constitutional Vital Signs, click to edit/add: Last Vital Signs Temp 98.2 F 08/17/23 07:58 Pulse 70 08/17/23 08:05 Resp 18 08/17/23 07:58 BP 110/66 08/17/23 07:58 Pulse Ox 95 08/17/23 07:58 O2 Del Method Room Air 08/17/23 07:58 Common normals: no apparent distress, oriented x3 and alert General appearance: cooperative Orientation/consciousness: Yes awake HENMT Common normals: normocephalic and head/scalp atraumatic Eye Common normals: PERRL, EOMs intact bilaterally, conjunctivae normal and no s cleral icterus Neck & C-Spine Common normals: no JVD Respiratory Common normals: normal respiratory effort, no use of accessory muscles and clear to auscultation bilaterally Effort & inspection: able to speak in complete sentences and symmetric chest movement Cardio Common normals: no JVD, regular rate, regular rhythm, S1 normal heart sound, S2 normal heart sound, no murmurs and peripheral pulses 2+ throughout GI Common normals: Normal to inspection, nondistended, normoactive bowel sounds present, soft to palpation and non-tender Bladder/kidney exam: bladder normal to palpation Extremity Common normals: normal to inspection, full ROM and normal capillary refill General: edema (Trace bilat insteps); no clubbing and no cyanosis Neuro Common normals: moves all extremities, no focal motor deficits and no sensory deficits noted Speech: speech normal Sensory exam: double simultaneous stimulation for sensation normal Motor exam: strength 5/5 throughout, muscle tone normal throughout and no movement abnormalities noted Psych Common normals: mental status grossly normal and activity/motor behavior normal DS: Data Data Completed and Pending Labs on day of discharge: Labs from last 24 hours 08/17/23 08/16/23 08/16/23 05:08 15:15 14:14 WBC 11.7 H 12.5 H RBC 3.64 L 4.17 L Hgb 10.5 L 12.0 Hct 33.1 L 37.3 MCV 90.9 89.4 MCH 28.8 28.8 MCHC 31.7 32.2 RDW 13.2 13.2 Plt Count 269 278 MPV 9.8 9.8 Neut % (Auto) 82.3 H 90.7 H Lymph % (Auto) 12.[address] % (Auto) 4.8 1.0 L Eos % (Auto) 0.2 L 0.1 L Baso % (Auto) 0.1 L 0.1 L Neut # (Auto) 9.7 H 11.3 H Lymph # (Auto) 1.[address] [place] # (Auto) 0.6 0.1 L Eos # (Auto) 0.0 0.0 Baso # (Auto) 0.0 0.0 Abs Immat Gran (auto) 0.07 H 0.05 H Imm/Tot Granulo (auto) 0.6 H 0.4 Sodium 142 141 Potassium 4.2 4.4 Chloride 109 H 106 Carbon Dioxide 26.0 24.1 Anion Gap 11.2 15.3 BUN 20.0 H 19.0 H Creatinine 0.67 0.94 Est GFR ( Amer) >60 >60 Est GFR (Non-Af Amer) >60 >60 BUN/Creatinine Ratio 29.9 20.2 Glucose 135 H 136 H Calcium 8.1 L 8.4 L Total Bilirubin 0.1 L AST 9 L ALT 22 Alkaline Phosphatase 59 Total Protein 5.8 L Albumin 2.9 L Globulin 2.9 Albumin/Globulin Ratio 1.0 Urine Color Yellow Urine Clarity Clear Urine pH 6.0 Ur Specific Widen >=1.030 A Urine Protein Negative Urine Glucose (UA) Negative Urine Ketones Negative Urine Occult Blood Negative Urine Nitrite Negative Urine Bilirubin Negative Urine Urobilinogen 0.2 Ur Leukocyte Esterase Negative Discharge Plan Discharge Disposition: Home, Self-Care Condition: Good Discharge Medications: Continued baclofen 10 mg tablet 10 mg PO TID diazepam 10 mg tablet 5 mg PO QID PRN (Reason: seizures) epinephrine 0.3 mg/0.3 mL auto-injector 0.3 mg IM Q10M PRN (Reason: anaphylaxis) Rx Instructions: for 2 doses trazodone 300 mg tablet 300 mg PO .qhs Aimovig Autoinjector 70 mg/mL auto-injector 70 mg SUBCUT ONCE PRN (Reason: migraine headache) lithium carbonate 300 mg tablet 600 mg PO Q12H ketorolac 10 mg tablet 10 mg PO Q8H PRN (Reason: pain) 2 Days Qty: 6 0RF albuterol sulfate 90 mcg/actuation HFA aerosol inhaler 2 puff INHALATION Q4H PRN (Reason: shortness of breath or wheezing) estradiol 1 mg tablet 1 mg PO QAM lamotrigine 150 mg tablet 150 mg PO BID magnesium oxide 400 mg (241.3 mg magnesium) tablet 400 mg PO .qhs promethazine 12.5 mg tablet 12.5 mg PO Q6H PRN (Reason: nausea and vomiting) vilazodone 40 mg tablet 40 mg PO DAILY zolmitriptan 5 mg spray,non-aerosol 1 spray INTRANASAL Q2H PRN (Reason: headache) Rx Instructions: May repeat once if needed after =2 hours diphenhydramine HCl [Benadryl] 25 mg capsule 75 mg PO Q6H PRN (Reason: migraine headache) Discontinued promethazine 25 mg tablet 25 mg PO Q6H PRN (Reason: nausea and vomiting) 3 Days Qty: 12 0RF Activity: resume usual activities as tolerated Diet: advance to your usual diet Print Language: Omani Patient Instructions: Nonepileptic Seizures (DC), Acute Headache (DC) Activity Restrictions/Additional Instructions: - Follow up with Neurology as previously scheduled Forms: Portal Instructions Follow Up Appointments: August 20 @ 2:45pm with Dr. Marshall [phone] Discharge Date/Time: 08/17/23 09:44
[2023-08-17] MEDS: ESTRADIOL 1 MG TABLET PO (08:48)
[2023-08-17] MEDS: ONDANSETRON PF 4 MG/2 ML VIAL IV (08:48)
[2023-08-17] MEDS: LITHIUM CARBONATE 150 MG CAPSULE 600 MG PO (08:48)
[2023-08-17] MEDS: LAMOTRIGINE 100 MG TABLET 150 MG PO (08:48)
== END 2023-08-17 09:44 | disposition home or self-care (01) ==
LOC: ER 13:11 → MS 14:39
PROVIDERS: Admitting Provider Family Medicine; Emergency Provider Emergency Medicine; PCP Family Medicine; Visit Provider Nurse Practitioner
DX: G43.919 Migraine, unspecified, intractable, without status migrainosus (principal); G40.909 Epilepsy, unspecified, not intractable, without status epilepticus; E86.0 Dehydration; D72.829 Elevated white blood cell count, unspecified; F31.70 Bipolar disorder, currently in remission, most recent episode unspecified; J45.909 Unspecified asthma, uncomplicated
CPT/HCPCS: 36415; 70450; 71045; 80048; 80053; 80307; 81003; 85025; 96361; 96365; 96375; 96376; 99285; G0378; J1170; J1200; J1230; J1885; J2250; J2405; J2919; J3475

== ENCOUNTER 2023-11-26 10:52 | Emergency (ER) | payer OTHER, SELFPAY ==
[2023-11-26 10:56] VITALS: BP 148/92; PULSE 75; TEMP 36.7; O2SAT 97; BMI 47.2
--- OUTSIDE RECORDS SUMMARY | 2023-11-26 11:00 | XMS_ITS | CCD ---
Author Organization [facility] Care Team Providers Care Ticket Dispenser Changer Name Role Phone Abdifatah Brady (Historical) Primary Care Provide r Unavailable Sandhya HECK - FADY Angélica Santiago Primary Care Provider SANDHYA ANGÉLICA Santiago Primary Care Unavailable VIELKA CHING Attending Unavailable Sandhya RADIO MAINTAINER - FADY, Angélica Santiago Primary Care Provider LUCILA MOTA Attending Unavailable PAYKINGS Referring Unavailable DANIELKrupa ANGÉLICA Santiago Primary Care Unavailable LUCILA MOTA Admitting Unavailable Abdifatah Brady (Historical) Primary Care Provide r Unavailable KRISTOFER BURCIAGA Attending Unavailab Zay Tavarez Referring Unavailable Abdifatah Brady (Historical) Primary Care Provide r Unavailable BRICE ., CHAYITO Admitting Unavailable BRICE ., CHAYITO Attending Unavailable BRICE ., CHAYITO Consulting Unavailable LAURITA, DR SPENSER Garcia Primary Care Unavailable LEONARDO ., DR GUTIERERZ Admitting Unavailable LEONARDO ., DR GUTIERREZ Attending Unavailable NADERER, DR SPENSER Garcia Primary Care Unavailable LEONARDO ., DR GUTIERREZ Consulting Unavailable DIAB ., [facility] Attending Unavailable DIAB ., [facility] Consulting Unavailable MISC, DR GOMEZ Primary Care Unavailable DIAB ., [facility] Admitting Unavailable MANJINDER DEAL Attending Unavailable MANJINDER DEAL Consulting Unavailable MANJINDER DEAL Admitting Unavailable LAURITA, DR SPENSER Garcia Primary Care Unavailable ASHLIECHFRED .MARY Consulting Unavaildeshaun e ANASTASIA, DR GOMEZ [...] Unavailable PATRICIA WALSH Consulting Unavailable [facility] [place] GOMEZ Primary Care Unavailable HAY ., DR HARMAN Attending Unavailable HAY ., DR HARMAN Admitting Unavailable NEWATIA, NICHOLAS Consulting Unavailable UNLU, SINDY Consulting Unavailable LEONARDO ., DR GUTIERREZ Admitting Unavailable LEONARDO ., DR GUTIERREZ Consulting Unavailable [facility] Primary Care Unavailable LEONARDO ., DR GUTIERREZ Attending Unavailable KUNS, DR ANGÉLICA Santiago Primary Care Unavailable LEONARDO ., DR GUTIERREZ Admitting Unavailable LEONARDO ., DR GUTIERREZ Attending Unavailable LEONARDO ., DR GUTIERREZ Consulting Unavailable LEONARDO ., DR GUTIERREZ Admitting Unavailable LEONARDO ., DR GUTIERREZ Attending Unavailable NADERER, DR SPENSER Garcia Primary Care Unavailable [facility] Primary Care Unavailable HAY ., DR HARMAN Consulting Unavailable HAY ., DR HARMAN Admitting Unavailable HAY ., DR HARMAN Attending Unavailable KONSTNICOLE STEPHENS Consulting Unavailable KUNKrupa, DR ANGÉLICA Santiago Primary Care Unavailable MARKER ., DR ONEAL Attending Unavailable MARKER ., DR ONEAL Consulting Unavailable MARKER ., DR ONEAL Admitting Unavailable SCHNEROBIN KING Consulting Unavailable SAY, MANJINDER Attending Unavailable SAY, MANJINDER Consulting Unavailable DOMO DEALYL Admitting Unavailable KUNKrupa, DR ANGÉLICA Santiago Primary Care Unavailable KUNKrupa, DR ANGÉLICA Santiago Referring Unavailable LEONARDO ., DR GUTIERREZ Admitting Unavailable LEONARDO ., DR GUTIERREZ Attending Unavailable LEONARDO ., DR GUTIERREZ Consulting Unavailable REQUEST, NONE LISTED Primary Care Unavaila ble AGUBOSIM, BARON Consulting Unavailable LEONARDO ., DR GUTIERREZ Procedure Practitioner Unavail able KRYSTIN HERNADEZ Consulting Unavailable LUCIE, KLEBER Consulting Unavailable DORKOSKHAMIDA, SHARDA Consulting Unavailable ALECIA ., DENNIS Admitting Unavailable ALECIA ., DENNIS Attending Unavailable MISGilson, DR GOMEZ Primary Care Unavailable HAY ., [...] HARMAN Admitting Unavailable AHDOOT, NELI Consulting Unavailable Abdifatah Brady (Historical) Primary Care Provide r Unavailable LOGAN BARTH Attending Unavailable BIDDLECOM, SUZAN Attending Unavailable GREEN, LOGAN Attending Unavailable ОЛЬГА AGUILAR Attending Unavailable GREEN, CAMERONI Referring Unavailable GREEN, LOGAN Attending Unavailable GREEN, CAMERONI Referring Unavailable CURTIS LEPE Attending Unavailable BIDDLECOM, SUZAN Referring Unavailable GREEN, LOGAN Attending Unavailable BIDDLECOM, SUZAN Referring Unavailable BIDDLECOM, SUZAN Attending Unavailable BIDDLECOM, SUZAN Referring Unavailable BIDDLECOM, SUZAN Attending Unavailable BIDDLECOM, SUZAN Referring Unavailable Ramsey Maloney Attending Unavailab [place] Admitting Unavailab le NON STAFF Primary Care Unavailable ZAY BLAS Attending Unavailable LEONARDOZAY MOSER Attending Unavailable SPENSER SHAY Attending Unavailable ZAY BLAS Attending Unavailable SHAIKH WALLS Attending Unavailable ZAY BLAS Attending Unavailable ZAY BLAS Attending Unavailable NADSPENSER JENSEN Attending Unavailable NADSPENSER JENSEN Attending Unavailable ZAY BLAS Attending Unavailable Allergies Allergy Classification Reported Allergen(s) Allergy Type Date of Onset Reaction(s) Facility Anti-Epileptic Agents (1 source) levETIRAcetam Drug Allergy 11-12-19 23 Itching [facility] Work Phone: Cephalosporins (antibiotic) (1 source) Cephalexin Drug Allergy 12-04-19 22 Rash [facility] Dextromethorphan / Pyrilamine (1 source) Dextromethorphan / Pyrilamine Drug Allergy 01-08-20 [facility] Work Phone: Dihydroergotamine (1 source) Dihydroergotamine Drug Allergy 07-28-19 Intolerance [facility] DOPamine Antagonists (1 source) Metoclopramide Drug Allergy 12-04-19 Intolerance [facility] Macrolides (antibiotic) (1 source) Azithromycin Drug Allergy 12-04-19 22 Other: See Comments [facility] vortioxetine (1 source) vortioxetine Drug Allergy 08-07-19 [facility] (20 sources) Azithromycin; Translations: [AZITHROMYCIN] Drug Allergy 12-25-19 21 Hives, Other: See Comments [facility] (2 sources) carBAMazepine Drug Allergy 12-25-19 21 [facility] (See Comments[facility] Cephalexin; Translations: [CEPHALEXIN] Drug Allergy 12-25-19 21 Hives, Rash [facility] (20 sources) Metoclopramide; Translations: [METOCLOPRAMIDE] Drug Allergy 12-25-19 21 Hives, Intolerance [facility] (2 sources) Propranolol Drug Allergy 12-25-19 21 Hives, Other (See Comments) [facility] (20 sources) Adhesive Tape-Silicones; Translations: [ADHESIVE TAPE-SILICONES] Drug Allergy 12-04-19 [facility] (20 sources) Dextromethorphan / Pyrilamine; Translations: [PYRILAMINE-DEXTROME THORPHAN] Drug Allergy 01-08-20 [facility] Work Phone: (20 sources) vortioxetine; Translations: [VORTIOXETINE] Drug Allergy 08-07-19 [facility] Work Phone: (20 sources) Dihydroergotamine; Translations: [DIHYDROERGOTAMINE] Drug Allergy 07-28-19 23 Intolerance [facility] (1 source) Azithromycin Drug Allergy [facility] (1 source) bee venom Drug allergy (disorder) [facility] (1 source) Cephalexin Drug Allergy [facility] (1 source) Desonide Drug Allergy [facility] (1 source) Iothalamate Drug Allergy [facility] (1 source) Propranolol Drug Allergy 12-21-19 21 [facility] (1 source) [place] [facility] Drug allergy (disorder) 01-08-20 22 [facility] (20 sources) levETIRAcetam; Translations: [LEVETIRACETAM] Drug Allergy 11-12-19 23 Itching [facility] Work Phone: (2 sources) Valproate; Translations: [DIVALPROEX] Drug Allergy 03-22-19 24 Hives [facility] Work Phone: Medications Current Medications Medication Drug Class(es) Dates Sig (Normalized) Sig (Original) Acetaminophen (2 sources) Start: 10-19-2021 acetaminophen (TYLENOL) tablet 1,000 mg Start: 10-19-2021 End: 10-19-2021 acetaminophen (TYLENOL) tabl et 650 mg onabotulinumtoxina 200 unt injection (20 sources) Acetylcholine Release Inhibitor Start: 10-12-2022 onabotulinum toxin type A 200 Units injection (BOTOX) chlorzoxazone 500 mg oral tablet (15 sources) Muscle Relaxant Start: 07-10-2023 End: 11-10-2023 take 1 tablet by mouth every twelve hours as needed chlorzoxazone (PARAFON FORTE DSC) 500 mg tablet Take 1 tablet by mouth two times a day as needed for muscle spasm (migraine). 20 tablet 5 11/10/2023 Active Start: 10-12-2022 End: 12-09-2022 take 1 [...] Start: 11-23-2021 diazePAM (VALIUM) 10 mg tablet 11/23/2021 Active take 1 tablet by sami th every six hours as needed for anxiety diazePAM (VALIUM) 5 MG tablet Take 5 mg by mouth every 6 hours as needed for Anxiety. 0 Suspended ketorolac tromethamine 10 mg oral tablet (20 sources) Nonsteroidal Anti-inflammatory Drug, Cyclooxygenase Inhibitor Start: 10-13-2023 End: 10-13-2023 keTORolac 30 mg injection (Toradol) Start: 10-13-2023 End: 10-13-2023 30 mg, INTRAVENOUS, ONCE, 1 dose, On Mon10/13/23 at 1330, Ketorolac (Toradol) is indicated for the short-term (up to 5 days) management of moderately severe acute pain. Continuation of ketorolac (Toradol) beyond 5 days increases the risk of developing serious adverse events. Please verify the duration of therapy for ketorolac (Toradol), If ordered PRN for pain, patient/guardian may elect to receive this medication for higher pain levels INSTEAD of the opioid, if preferred: Yes Start: 03-16-2023 End: 11-10-2023 take 1 tablet by mouth every six hours as needed keTORolac (TORADOL) 10 mg tablet Take 1 tablet by mouth every 6 hours as needed (severe migraine). 20 tablet 5 07/10/2023 11/10/2023 Discontinued Start: 05-08-2022 End: 12-09-2022 take 1 tablet [...] Start: 11-23-2021 lamoTRIgine (LAMICTAL) 150 mg tablet 11/23/2021 Active Start: 10-21-2021 take 2 tablets by mo [...] Start: 06-13-2022 lithium carbonate 300 mg tablet 06/13/2022 Active loperamide hydrochloride 2 mg oral capsule (1 source) Opioid Agonist Start: 10-20-2021 loperamide (IMODIUM) capsule 2 mg lumateperone (CAPLYTA) 10.5 mg capsule (15 sources) take 1 capsule by mouth once daily lumateperone (CAPLYTA) 10.5 mg capsule Take 10.5 mg by mouth once daily. Active take 1 capsule by mouth once ann ly lumateperone (CAPLYTA) 10.5 mg capsule Take 10.5 mg by mouth once daily. 0 Active Comment on above: Take 10.5 mg by mout h once daily. magnesium oxide 400 mg oral capsule (20 sources) Start: End: take 1 capsule by mouth once daily at bedtime magnesium oxide 400 mg magnesium cap Take 1 capsule by mouth daily at bedtime. 90 capsule 3 07/10/2023 Active Comment on above: magnesium 400 mg (as magnesium oxide) capsule methocarbamol 500 mg oral tablet (3 sources) Muscle Relaxant Start: 023 End: 023 take 1 tablet by mouth twice daily methocarbamol (ROBAXIN) 500 mg tablet Take 1 tablet by mouth twice daily. 60 tablet 2 09/12/2022 10/12/2022 Discontinued (Lack of Efficacy) Comment on above: Take 1 tablet by sami th twice daily. ondansetron (ZOFRAN-ODT) disintegrating tablet 4 mg (1 source) Start: ondansetron (ZOFRAN-ODT) disintegrating tablet 4 mg phentermine hydrochloride 37.5 mg oral tablet (17 sources) Sympathomimetic Amine Anorectic Start: Phentermine HCl 37.5 mg tablet 03/21/2023 Active Comment on above: take 1 tablet by sami th every morning before meals promethazine hydrochloride 25 mg oral tablet (20 sources) Phenothiazine Start: End: take 1 tablet by mouth every four hours as needed for nausea promethazine (PHENERGAN) 25 mg tablet Indications: 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 without status migrainosus Take 1 tablet by mouth every 4 hours as needed. FOR NAUSEA 90 tablet 5 11/10/2023 Active Start: 03-17-2023 End: 08-18-2023 take 1 tablet by mouth every six hours as needed promethazine (PHENERGAN) 12.5 mg tablet Take 1 tablet by mouth every 6 hours as needed. 90 tablet 5 08/18/2023 08/18/2023 Discontinued Start: 06-22-2022 End: 08-31-2022 take 1 tablet [...] Start: 06-13-2022 traZODone (DESYREL) 100 mg tablet 06/13/2022 Active Completed/Discontinued Medications Medication Drug Class(es) Dates Sig [...] 0 10/20/2021 Discontinued (Stop Taking at Discharge) diphenhydrAMINE (2 sources) Histamine-1 Receptor Antagonist Start: 10-13-2023 End: 10-13-2023 50 mg, INTRAVENOUS, NEEDED, 1 dose, Starting on Mon10/13/23 at 1308, Until Mon10/13/23 at 1310, Administer per hypersensitivity/grupo phylaxis grading in nursing communication Start: 12-24-2020 End: 12-24-2020 diphenhydrAMINE (BENADRYL) i njection 50 mg 0.4 ml enoxaparin sodium 100 mg/ml prefilled syringe (1 source) Low Molecular Weight Heparin Start: 10-19-2021 inject 40 mg by subcutaneous injection once daily 40 mg, SubCUTAneous, DAILY, First dose on Mon10/19/21 at 1245, Until Discontinued Indication of Use: Prophylaxis-DVT/PE eptinezumab-jjmr 100 mg in NaCl 0.9% 100 mL (VYEPTI) (1 source) Start: 10-13-2023 End: 10-13-2023 100 mg, INTRAVENOUS, at 200 mL/hr, Administer over 30 Minutes, ONCE, 1 dose, On Mon10/13/23 at 1230, EXP: Administer with 0.2 micron filter. 1 ml erenumab-aooe 140 mg/ml auto-injector (16 sources) Start: 07-10-2023 End: 09-19-2023 inject 1 mL by subcutaneous injection every month erenumab-aooe (AIMOVIG AUTOINJECTOR) 140 mg/mL auto-injector Inject 1 mL subcutaneously once every month. Do not shake. 1 Each 07/10/2023 09/19/2023 Discontinued Start: 03-23-2023 End: 07-10-2023 inject 1 mL by subcutaneous injection every month erenumab-aooe (AIMOVIG AUTOINJECTOR) 70 mg/mL auto-injector Inject 1 mL subcutaneously once every month. Do not shake. 1 Each 07/10/2023 07/10/2023 Discontinued Comment on above: Inject 1 mL subcutan eously once every month. Do not shake. FLUoxetine 20 mg oral capsule (2 sources) Serotonin Reuptake Inhibitor End: 10-21-19 take 3 capsules by mouth once daily FLUoxetine (PROZAC) 20 MG capsule Take 60 mg by mouth daily 0 10/20/2021 Discontinued (Stop Taking at Discharge) 1.5 ml fremanezumab-vfrm 150 mg/ml auto-injector (4 sources) Start: 11-26-19 21 fremanezumab-vfrm (AJOVY AUTOINJECTOR) 225 mg/1.5 mL auto-injector Ajovy 225 mg/1.5 mL subcutaneous auto-injector 0 11/25/2020 Active Comment on above: Ajovy 225 mg/1.5 mL subcutaneous auto-injector gabapentin 600 mg oral tablet (6 sources) Anti-epileptic Agent Start: 10-24-19 gabapentin (NEURONTIN) 600 mg tablet End: 10-20-2021 [...] needed 2 ml ondansetron 2 mg/ml injection (2 sources) Serotonin-3 Receptor Antagonist Start: 10-13-19 End: 10-13-19 24 8 mg, INTRAVENOUS, EVERY 1 HOUR NEEDED, 2 doses, Starting on Mon10/13/23 at 1221, Until Mon10/13/23 at 1600, Nausea/Vomiting - First Line - Parenteral Start: 12-24-2020 End: 12-24-2020 ondansetron (ZOFRAN) injecti on 4 mg 12 hr orphenadrine citrate 100 mg extended release oral tablet (12 sources) Muscle Relaxant Start: 03-17-2023 End: 07-10-2023 take 1 tablet by mouth every twelve hours as needed orphenadrine ER (NORFLEX) 100 mg tablet Take 1 tablet by mouth two times a day as needed. 30 tablet 03/17/2023 07/10/2023 Discontinued Start: 12-12-2022 take 1 tablet by sami th every twelve hours as needed orphenadrine ER (NORFLEX) 100 mg tablet Take 1 tablet by mouth two times a day as needed. 30 tablet 12/12/2022 Active Comment on above: Take 1 tablet by sami th two times a day as needed. polyethylene glycol [id number] mg powder for oral solution (1 source) Osmotic Laxative Start: 17 g, Oral, DAILY PRN, Starting on Mon10/19/21 at 1226, Until Discontinued, Constipation First line therapy for constipation 20 ml ropivacaine hydrochloride 5 mg/ml injection (2 sources) Amide Local Anesthetic Start: End: ROPivacaine (PF) 5 mg/mL (0.5 %) 100 mg injection (NAROPIN) 5 ml sodium chloride 9 mg/ml injection [...] by type of infusion therapy being given. F or non-viscous solutions use: Periphera l IV = 5 mL Midline or Central Line = 10 mL/lumen &nbsp ;For viscous solutions (i.e. blood components, parenteral nutrition, contrast media, or after obtaining blood sample) use: Periphera l IV = 10 mL Midline or Central [...] and Serotonin-1d Receptor Agonist Start: 03-17-2023 End: 11-10-2023 ZOLMitriptan (ZOMIG) 5 mg nasal spray Use 1 Hewlett in the nose as needed at onset of migraine headache. If symptoms persist or return, may repeat dose in other nostril after 2 hours. Maximum of 2 sprays per 24 hours 10 Each 5 07/10/2023 11/10/2023 Discontinued Start: 06-24-2022 ZOLMitriptan ( ZOMIG) 5 mg nasal spray Use 1 Hewlett in the nose as needed at onset of migraine headache. If symptoms persist or return, may repeat dose in other nostril after 2 hours. Maximum of 2 sprays per 24 hours 10 Each 2 06/24/2022 Active Start: 06-24-2022 take 1 spray(s) nasa l route every twenty-four hours as needed ZOLMitriptan (ZOMIG) 5 mg nasal spray Use 1 Hewlett in the nose as needed. SPRAY IN 1 NOSTRIL AT ONSET OF MIGRAINE HEADACHE. If symptoms persist or return, may repeat dose after 2 hours. Maximum: 5 mg/dose; 10 mg per 24 hours 10 Each 2 06/24/2022 Active Comment on above: Use 1 Hewlett in the n ose as needed. SPRAY IN 1 NOSTRIL AT ONSET OF MIGRAINE HEADACHE. If symptoms persist or return, may repeat dose after 2 hours. Maximum: 5 mg/dose; 10 mg per 24 hours Use 1 Hewlett in the n ose as needed at [...] 08-14-2021 Episodic Other aftercare (1 source) Other watermelon inspector (current) drug therapy; Translations: [OTH INTERMEDIATE CURRENT DRUG THERAPY] Onset: 06-22-2022 Episodic Other [...] Value Interpretation Reference Range Facility [facility] 09-19-2023 CNOV Office Visit ([facility]) ---- CONI NICHOLSON ([id number]) 1995 F Date Time Provider Department 09/19/23 2:30 PM LOGAN BATRH [facility] During your visit today, we recorded the following information about you: Temperature Pulse Blood pressure Weight 99.1 degrees 80/minute 115/81 118.8 kg Height 1.584 m Logan Barth APRN.SERVICE PARTS COORDINATOR 09/19/2023 3:12 PM Signed [facility] - Follow Up Visit Accompanied by: Self Primary Problem List: ACTIVE PROBLEM LIST Seizure-Like Activity (Hcc) Psychogenic Nonepileptic Seizure Intractable Chronic Migraine Without Aura and With Status Migrainosus Chronic Migraine Without Aura, With Intractable Migraine, So Stated, With Status Migrainosus Chief Complaint: Patient presents with: Headache Interval Headache History: Coni Nicholson is a 27 year old year old female, with a history of asthma, anxiety, depression, PCOS, occipital neuralgia, psychogenic nonepileptic seizures, chronic migraine, and chronic daily headache following up today for headaches. Since the last visit, the patient states that their headaches are much worse. She ended up in the hospital after nerve block, does not want to repeat today. She increased Aimovig. Does not feel it is helping. Having daily nausea, taking promethazine daily. Inquiring re zofran pump. Headache 1 Location: right, left and retro-orbital Quality/Description : throbbing and sharp Associated Symptoms: Photophobia: yes Phonophobia: yes Nausea: yes Vomiting: yes Other symptoms: neck pain, dizziness and relieved in supine position Worse with activity: yes Number of migraine headache days/month: 20 Migraine headache severity: 5/10 Number of NON-migraine headache days/month: 10 Total Number of headache days/month: 30 Number of headache free days/month: 0 Triggers: stress Relieving factors: migraine mask, rest Positional changes: no Days missed from work or school in the last month: 15 days Headache status since the last visit: worse Preventative: aimovig 140, magnesium Abortive: phenergan, norflex, toradol, zomig ns Medications effective? no Prior Therapies Duration of Use Dose Reason for Discontinuation Analgesic Ketorolac (Toradol) Anti-Convulsant Lamotrigine (Lamictal) Topiramate (Topamax, Trokendi XL, Qudexy) Anti-Depressant and Antipsychotic Amitriptyline (Elavil) [place] (Eskalith, Lithobid) Nortriptyline (Pamelor, Aventyl) Anti-Migraine Dihydroergotamine [...] Intolerance Vortioxetine Hives Current Medications: promethazine (PHENERGAN) 25 mg tabletTake 1 tablet by mouth every 4 hours as needed. FOR NAUSEADisp: 90 tabletRfl: 1 ZOLMitriptan (ZOMIG) 5 mg nasal sprayUse 1 Hewlett in the nose as needed at onset [...] once daily.Disp: Rfl: Phentermine HCl 37.5 mg tabletDisp: Rfl: lithium carbonate 300 mg tabletDisp: Rfl: traZODone (DESYREL) 100 mg tabletDisp: Rfl: lamoTRIgine (LAMICTAL) 150 mg tabletDisp: Rfl: diazePAM (VALIUM) 10 mg tabletDisp: Rfl: I have reviewed the Health Status Assessment responses and discussed these with the patient: yes Logan Barth APRN.SERVICE PARTS COORDINATOR HEADACHE SCORES: 03/22/2023 07/10/2023 09/19/2023 Headache Questions ER visits since last office visit: 6 8 6 Hospital stays since last office visit 2 1 Limited ADL (more content not included)... Normal [facility] CNOVon 08-18-2023 CN Office Visit ([facility]) ---- CONI NICHOLSON ([id number]) 1995 F Date Time Provider Department 08/18/23 9:30 AM [facility]IS [facility] During your visit today, we recorded the following information about you: Pulse Blood pressure 88/minute 116/51 Curtis Lepe PA-C 08/18/2023 2:39 PM Addendum Outpatient [facility]ache [facility] - Procedure Note Accompanied by: Spouse Primary Problem List: ACTIVE PROBLEM LIST Seizure-Like Activity (Hcc) Psychogenic Nonepileptic Seizure Intractable Chronic Migraine Without Aura and With Status Migrainosus Chronic Migraine Without Aura, With Intractable Migraine, So Stated, With Status Migrainosus Chief Complaint: 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 without status migrainosus (primary encounter diagnosis) Psychogenic nonepileptic seizure Interval Headache History: Coni Nicholson is a 27 year old year old female, with a history of asthma, anxiety, depression, PCOS, occipital neuralgia, psychogenic nonepileptic seizures, and migraine following up today for bilateral greater occipital nerve block. She is currently in 3-week long episode of status migrainosus. Has been hospitalized multiple times over this 3 weeks for migraine cocktails and symptoms of PNES. Patient was requesting medication for incontinence as well as an Zofran pump for constant nausea. She reports that during her last hospitalization they took her prescription drugs that include Toradol, Phenergan, and Parafon forte. She plans to establish with absolutely moving forward. Does not follow with psychology for PNES. Procedure Note: Greater Occipital Nerve Block The risks, benefits and anticipated outcomes of the procedure, the risks and benefits of the alternatives to the procedure, and the roles and tasks of the personnel to be involved, were discussed with the patient, and the patient consents to the procedure and agrees to proceed. Electronic Informed consent signed. UNIVERSAL PROTOCOL / SAFETY CHECKLIST Procedure to be Performed: Bilateral greater Occipital Nerve Block Sign In: A Moment of CARE was completed. Personnel directly involved with the procedure wore the appropriate PPE (Personal Protective Equipment). No special equipment needed. Patient/Surrogate Stated/Verified: PATIENT VERIFIED(optional for EMERGENT procedures): Patient name, Date of , Relevant allergies and The intended procedure Time Out Communication: Intended patient and procedure match the source documents. Consent documented and matches the intended procedure. No relevant labs, photos, and/or imaging studies were applicable for review. Correct side/site marked and visible. Medications required for procedure verified. No fire risk assessment and interventions applicable. No implant(s) inserted. Sign Out: SIGN OUT (optional for EMERGENT procedures): No specimen collected. All instruments, equipment, possible retained foreign bodies accounted for. Post-procedure follow-up management communicated and Plan of Care Visit completed when applicable. Curtis Lepe PA-C 6 cc 0.5% Ropivacaine prepared in 2 3cc syringe . 3cc were injected into the right and left greater Occipital Nerve(s). 0cc were wasted. The occipital nerve(s) was injected 3cm caudal and 1.5 cm lateral to the inion where the main trunk of the occipital nerve penetrates the semispinalis muscle. The needle was placed perpendicular and the needle advanced 1.5 cm. After aspiration to ensure no obstruction or presence of blood, the area was injected. The needle was repositioned in a fan-like manner and the entire area was injected. The patient was told to use heat if there was discomfort later in the day. Pre injection pain 9/10 Post injection pain 7/10 Patient tolerated the procedure well. You received a greater occipital nerve block today. You may feel sore tomorrow at the site of the injection. You may use heat or ice for discomfort. This should resolve in 24-36 hours. Curtis Lepe PA-C Impression/plan: -Can send Phenergan 25 mg for nausea. Our department does not prescribe Zofran pump. Can consider scopolamine patch. -Recommend patient follows up with PCP for incontinence -Placed referral for psychology for CBT for history of PNES -Patient plans to follow-up with epilepsy clinic -Follow-up with Logan in 1 month Curtis Lepe PA-C Headache Section [facility] August 18, 2023 Curtis Lepe PA-C 08/18/2023 2:39 PM Signed You received a greater occipital nerve block (GONB) today You may feel sore tomorrow at the site of the injection. You may use heat or ice for discomfort and gentle stretching. This should resolve in 24-36 hours. Greater Occipital Nerve Block (GONB) Article in [employer] Journal By: Molina Barraza MD Many patients with chronic headache report that their (more content not included)... 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 Short and mcfp memory, cognition and general [...] which included preparing to see the patient, [id number] patient care, completing clinical documentation, obtaining and/or reviewing separately obtained history, performing a medically appropriate examination, counseling and educating the patient/family/manager critical care, and ordering medications, tests, or procedures. Suzan Driver APRN.[facility] Headache Section [facility] Suzan Driver APRN.CNP 04/14/2023 10:49 AM Signed Follow up/ discharge plan: f/u in 3 months Start aimovig this weekend Aimovig Information Aimovig is a CGRP monoclonal antibody (MAB). CGRP is a substance in the brain that plays a chong role in causing migraine. Aimovig was specifically developed t (more content not included)... [facility] CONI NICHOLSON ([id number]) 1995 F Date Time Provider Department 04/13/23 [facility] During your visit today, we recorded the following information about you: Johana Cancino RN 04/13/2023 9:30 AM Signed Patient is currently receiving infusions for headache. She is interested in learning about rebt program. Please schedule for evaluation. PRATIBHA Bliss [...] (ZOMIG) 5 mg nasal spray Use 1 Hewlett in the nose as needed at onset [...] Encounter Status:Closed by JOHANA CANCINO on 04/13/23 [facility] CNOVon 04-12-2023 CNOV Office Visit (NHMNS2) ---- CONI NICHOLSON ([id number]) 1995 F Date Time Provider Department 04/12/23 1:30 PM SUZAN DRIVER [facility] During your visit today, we recorded the following information about you: Suzan Driver APRN.CNP 04/12/2023 11:52 AM Signed General Headache Education [...] much light. These can be obtained at [employer] or [employer]: see list below. 2. Limit use of acute treatments (aqmj-lyd-awlbdpz medications, triptans, etc.) to no more than [...] and quiet environment. Relax and reduce stress. Hviwbdq0Hhhde is a free catrina that can instruct you on some simple relaxtion and breathing techniques. Http://[employer] is a free website that provides teaching videos on relaxation. Also, there are many apps that can be downloaded for ?mindful? relaxation. An catrina called YOGA NIDRA will help walk you [...] epilepsy i (more content not included)... Normal [facility] CNPNon 03-27-2023 CNPN Telephone (MNOPRX) ---- CONI NICHOLSON ([id number]) 1995 F Date Time Provider Department 03/27/23 ANGELY COTTON [facility] During your visit today, we recorded the following information about you: Angely Cotton RN 03/27/2023 1:05 PM Signed [facility] received prescription(s) for Aimovig 70MG/ML auto-injectors . Benefits investigation was conducted, indicating that a prior authorization is required. PA was initiated and pending review through [employer]. All pertinent clinical information was submitted to insurance. [facility] Chong: [id number] Ordering Provider: Logan Barth APRN.Angely Schaefer RN [facility] P: , F: Angely Cotton RN 04/03/2023 12:43 PM Signed Ambulatory Pharmacy Prior Authorization Note Provider Intervention Required?: No- Pharmacy completed on your behalf. Rx Plan: Medicaid O ([facility]) Drug: Aimovig 70MG/ML auto-injectors Cover My Meds Chong: [id number] Determination: Approved Prior Authorization/Case #: n/a Prior [...] refills. Prescriptions will now be processed through [facility] for determination of next steps. For questions relating to this submission, please contact [facility] at [phone] Allergies As of Date: 03/27/2023 Noted Allergy [...] Date Reviewed: 03/23/2023 Reviewed by: Logan Barth APRN.SERVICE PARTS COORDINATOR - Fully Assessed Reason for Visit: Insurance Authorization [[id number]] Cmt: Aimovig 70MG/ML auto-injectors Prescriptions as of 04/03/2023 - Phentermine HCl 37.5 mg tablet take 1 tablet by mouth every morning before meals - erenumab-aooe (AIMOVIG AUTOINJECTOR) 70 mg/mL auto-injector Inject 1 mL subcutaneously once every month. Do not shake. - ZOLMitriptan (ZOMIG) 5 mg nasal spray Use 1 Hewlett in the nose as needed at onset [...] Encounter Status:Closed by ANGELY COTTON on 04/03/23 [facility] Veronica 03-21-2023 FADYN Telephone (NIQ) ---- CONI NICHOLSON ([id number]) 1995 F Date Time Provider Department 03/21/23 [...] Date Reviewed: 12/12/2022 Reviewed by: Logan Barth APRN.SERVICE PARTS COORDINATOR - Fully Assessed Reason for Visit: Patient Request [[id number]] Cmt: Headache infusions Prescriptions as of 03/21/2023 - ZOLMitriptan (ZOMIG) 5 mg nasal spray Use 1 Hewlett in the nose as needed at onset [...] Encounter Status:Closed by MENDOZA DOOLEY on 03/21/23 [facility] ---- CONI NICHOLSON ([id number]) 1995 F Date Time Provider Department 12/13/22 LOGAN BARTH [facility] During your visit today, we [...] Date Reviewed: 12/12/2022 Reviewed by: Logan Barth APRN.[facility] - Fully Assessed Prescriptions as of 12/13/2022 [...] (ZOMIG) 5 mg nasal spray Use 1 Hewlett in the nose as needed at onset [...] Encounter Status:Closed by JANNETTE MCLEOD on 12/13/22 [facility] CONI NICHOLSON ([id number]) 1995 F Date Time Provider Department 12/13/22 LOGAN BARTH During your visit today, we recorded the following information about you: Mendoza Dooley 12/13/2022 2:27 PM Signed Called patient to schedule for 3 days of Non DHE IV infusions. She started she was currently driving and would call back to schedule Logan aBrth APRN.SERVICE PARTS COORDINATOR P Headache Infusion Scheduling Pool; P C21 [...] Date Reviewed: 12/12/2022 Reviewed by: Logan Barth APRN.SERVICE PARTS COORDINATOR - Fully Assessed Reason for Visit: Infusion [...] (ZOMIG) 5 mg nasal spray Use 1 Hewlett in the nose as needed at onset [...] Encounter Status:Closed by MENDOZA DOOLEY on 12/13/22 [facility] CNPN Telephone (NIQ) ---- CONI NICHOLSON ([id number]) 1995 F Date Time Provider Department 11/10/22 SUZAN DRIVER During your visit today, we recorded the following information about you: Bonnie Howard 11/10/2022 8:29 AM Signed NI PHONE Name of caller : Margaret Relationship to patient : Self If not self Will need patient permission to release results or disclose health information with called documented in . Was permission obtained from patient ? Yes Patient identified by Name and Date of . ( Coni Nicholson, 1995). Yes Reason for Call : Other Patient wants to get infusions scheduled. Number to return call [phone] Okay to leave a message ? Yes Last office visit 10/12/22 with [facility] Next office visit Not scheduled. Thank you [...] Date Reviewed: 10/12/2022 Reviewed by: Suzan Driver APRN.SERVICE PARTS COORDINATOR - Fully Assessed Reason for Visit: Infusion [...] (ZOMIG) 5 mg nasal spray Use 1 Hewlett in the nose as needed at onset [...] Status:Closed by MENDOZA DOOLEY on 11/10/22 Normal [facility] BLOOD GASES BTYon 06-20-2022 02 MODE ROOM AIR Normal [facility] Comment on above: Performed By: #### B MP #### [facility] [address] [address] [address] Ibis Jimenez ALLENS TEST Positive [facility] Comment on above: Performed By: #### B MP #### [facility] [address] [address] [address] Ibis Jimenez Base excess Calc (Bld) [Moles/Vol] -1.6000 mmol/L Normal -2.0-2.0 [facility] Comment on above: Performed By: #### B MP #### [facility] [address] [address] [address] Ibis Jimenez BIPAP PRESSURE [facility] Comment on above: Performed By: #### B MP #### [facility] [address] [place] [address] Dr. I[address] [facility] Comment on above: Performed By: #### B MP #### [facility] [address] [address] [address] Ibis Jim[address]2 [facility] Comment on above: Performed By: #### B MP #### [facility] [address] [address] [address] Ibis Jimenez HCO3 (Bld) [Moles/Vol] 23.8 mmol/L Normal 22.0-26.0 [facility] Comment on above: Performed By: #### B MP #### [facility] [address] [address] [address] I[address] [facility] Comment on above: Performed By: #### B MP #### [facility] [address] [address] [address] Ibis Jimenez MINUTE VOLUME Normal [facility] Comment on above: Performed By: #### B MP #### [facility] [address] [address] [address] Ibis Jimenez Oxygen (Bld) [Partial pressure] 75.5 mm[Hg] Critically low 80.0-100.0 [facility] Comment on above: Performed By: #### B MP #### [facility] [address] [address] [address] Ibis Jimenez Oxygen saturation in Blood 95.8 % Normal 95.0-100.0 [facility] Comment on above: Performed By: #### B MP #### [facility] [address] [place] [address] Dr. Ibis Jimenez PCO2 41.8 mmHg Normal 35.0-45.0 [facility] Comment on above: Performed By: #### B MP #### [facility] [address] [address] [address] Ibis Jimenez [facility] Comment on above: Performed By: #### B MP #### [facility] [address] [place] [address] Dr. Ibis Jimenez pH (Bld) 7.363 [pH] Normal 7.350-7.450 [facility] Comment on above: Performed By: #### B MP #### [facility] [address] [place] [address] Dr. Ibis Jimenez [facility] Comment on above: Performed By: #### B MP #### [facility] [address] [place] [address] Dr. Ibis Jimenez [facility] Comment on above: Performed By: #### B MP #### [facility] [address] [place] [address] Dr. Ibis Jimenez PUNCTURE SITE LR [facility] Comment on above: Performed By: #### B MP #### [facility] [address] [place] [address] Dr. [address] [facility] Comment on above: Performed By: #### B MP #### [facility] [address] [place] [address] Dr. Ibis Jimenez VENT MODE [facility] Comment on above: Performed By: #### B MP #### [facility] [address] [place] [address] Dr. Ibis Jimenez [facility] Comment on above: Performed By: #### B MP #### [facility] [address] [address] [address] Ibis Jimenez CBC AUTO DIFFon 06-20-2022 BASO # 0.0 103/ul Normal 0.0-0.1 [facility] Comment on above: Performed By: #### A CET, SALYC #### [facility] [address] [place] [address] Dr. Ibis Jimenez Basophils/100 WBC (Bld) 0.5 % Normal 0.2-2.0 [facility] Comment on above: Performed By: #### A CET, SALYC #### [facility] [address] [place] [address] Dr. Ibis Jimenez EO # 0.3 103/ul Normal 0.0-0.7 [facility] Comment on above: Performed By: #### A CET, SALYC #### [facility] [address] [place] [address] Dr. Ibis Jimenez Eosinophils/100 WBC (Bld) 4.2 % Normal 0.9-7.0 [facility] Comment on above: Performed By: #### A CET, SALYC #### [facility] [address] [place] [address] Dr. Ibis Jimenez Erythrocyte distribution width (RBC) [Ratio] 13.2 % Normal 11.0-15.0 [facility] Comment on above: Performed By: #### A CET, SALYC #### [facility] [address] [place] [address] Dr. Ibis Jimenez Hematocrit (Bld) [Volume fraction] 36.5 % Normal 36.0-48.0 [facility] Comment on above: Performed By: #### A CET, SALYC #### [facility] [address] [place] [address] Dr. Ibis Jimenez Hemoglobin (Bld) [Mass/Vol] 11.7 g/dL Critically low 12.0-16.0 [facility] Comment on above: Performed By: #### A CET, SALYC #### [facility] [address] [place] [address] Dr. Ibis Jimenez IG # 0.05 10e3/ul Critically high 0.00-0.03 [facility] Comment on above: Performed By: #### A CET, SALYC #### [facility] [address] [address] [address] Ibis Jimenez IG % 0.8 % Critically high 0.0-0.5 [facility] Comment on above: Performed By: #### A CET, SALYC #### [facility] [address] [address] [address] Ibis Jimenez LYMPH # 1.7 103/ul Normal 1.2-3.8 [facility] Comment on above: Performed By: #### A CET, SALYC #### [facility] [address] [place] [address] Dr. Ibis Jimenez Lymphocytes/100 WBC (Bld) 26.9 % Normal 20.5-60.0 [facility] Comment on above: Performed By: #### A CET, SALYC #### [facility] [address] [place] [address] Dr. Ibis Jimenez MANUAL DIFF REQ NO Normal [facility] Comment on above: Performed By: #### A CET, SALYC #### [facility] [address] [place] [address] Dr. Ibis Jimenez MCH (RBC) [Entitic mass] 28.7 pg Normal 26.7-34.0 [facility] Comment on above: Performed By: #### A CET, SALYC #### [facility] [address] [place] [address] Dr. Ibis Jimenez MCHC (RBC) [Mass/Vol] 32.1 g/dL Normal 29.9-35.2 [facility] Comment on above: Performed By: #### A CET, SALYC #### [facility] [address] [place] [address] Dr. Ibis Jimenez MCV (RBC) [Entitic vol] 89.7 fL Normal 81.0-99.0 [facility] Comment on above: Performed By: #### A CET, SALYC #### [facility] [address] [place] [address] Dr. Ibis Jimenez MONO # 0.6 103/ul Normal 0.3-0.8 [facility] Comment on above: Performed By: #### A CET, SALYC #### [facility] [address] [place] [address] Dr. Ibis Jimenez Monocytes/100 WBC (Bld) 8.9 % Normal 1.7-12.0 [facility] Comment on above: Performed By: #### A CET, SALYC #### [facility] [address] [place] [address] Dr. Ibis Jimenez NEUT # 3.8 103/ul Normal 1.4-6.5 [facility] Comment on above: Performed By: #### A CET, SALYC #### [facility] [address] [place] [address] Dr. Ibis Jimenez Neutrophils/100 WBC (Bld) 58.7 % Normal 43.0-75.0 [facility] Comment on above: Performed By: #### A CET, SALYC #### [facility] [address] [place] [address] Dr. Ibis Jimenez Platelet mean volume (Bld) [Entitic vol] 9.3 fL Critically low 9.5-13.5 [facility] Comment on above: Performed By: #### A CET, SALYC #### [facility] [address] [place] [address] Dr. Ibis Jimenez PLT 188 103/ul Normal 150-450 [facility] Comment on above: Performed By: #### A CET, SALYC #### [facility] [address] [place] [address] Dr. Ibis Jimenez RBC 4.07 106/ul Critically low 4.20-5.40 [facility] Comment on above: Performed By: #### A CET, SALYC #### [facility] [address] [place] [address] Dr. Ibis Jimenez WBC 6.4 103/ul Normal 4.0-11.0 [facility] Comment on above: Performed By: #### A CET, SALYC #### [facility] [address] [place] [address] Dr. Ibis Jimenez DRUG SCREEN RAPID (URINE)on 06-20-2022 AMP Negative Normal NEGATIVE [facility] Comment on above: Performed By: #### B MP #### [facility] [address] [place] [address] Dr. Ibis Jimenez BAR Positive Abnormal NEGATIVE [facility] Comment on above: Performed By: #### B MP #### [facility] [address] [place] [address] Dr. Ibis Jimenez BUP Negative Normal NEGATIVE [facility] Comment on above: Performed By: #### B MP #### [facility] [address] [place] [address] Dr. Ibis Jimenez BZO Positive Abnormal NEGATIVE [facility] Comment on above: Performed By: #### B MP #### [facility] [address] [place] [address] Dr. Ibis Jimenez SEMAJ Negative Normal NEGATIVE [facility] Comment on above: Performed By: #### B MP #### [facility] [address] [place] [address] Dr. Ibis Jimenez CUT-OFFS SEE BELOW Normal [facility] Comment on above: Result Comment: AMP [...] ng/mL Performed By: #### B MP #### [facility] [address] [place] [address] Dr. Ibis Jimenez DRUG CUT HEADER DRUG CLASS TEST SYSTEM CUT-OFF CONCENTRATIONS ARE FOLLOWS: Normal [facility] Comment on above: Performed By: #### B MP #### [facility] [address] [address] [address] Ibis Jimenez mAMP Negative Normal NEGATIVE [facility] Comment on above: Performed By: #### B MP #### [facility] [address] [place] [address] Dr. Ibis Jimenez MTD Negative Normal NEGATIVE [facility] Comment on above: Performed By: #### B MP #### [facility] [address] [place] [address] Dr. Ibis Jimenez OPI Negative Normal NEGATIVE [facility] Comment on above: Performed By: #### B MP #### [facility] [address] [place] [address] Dr. Ibis Jimenez OXY Negative Normal NEGATIVE [facility] Comment on above: Performed By: #### B MP #### [facility] [address] [place] [address] Dr. Ibis Jimenez PCP Negative Normal NEGATIVE [facility] Comment on above: Performed By: #### B MP #### [facility] [address] [place] [address] Dr. Ibis Jimenez PPX Negative Normal NEGATIVE [facility] Comment on above: Performed By: #### B MP #### [facility] [address] [place] [address] Dr. Ibis Jimenez TCA Positive Abnormal NEGATIVE [facility] Comment on above: Performed By: #### B MP #### [facility] [address] [place] [address] Dr. Ibis Jimenez THC Positive Abnormal NEGATIVE [facility] Comment on above: Performed By: #### B MP #### [facility] [address] [place] [address] Dr. Ibis Jimenez ER URINE PROFILEon 3 Bilirubin Ql (U) Negative Normal NEGATIVE [facility] Comment on above: Performed By: #### A CET, SALYC #### [facility] [address] [place] [address] Dr. Ibis Jimenez Clarity (U) CLEAR Normal CLEAR [facility] Comment on above: Performed By: #### A CET, SALYC #### [facility] [address] [place] [address] Dr. Ibis Jimenez Color (U) YELLOW Normal YELLOW [facility] Comment on above: Performed By: #### A CET, SALYC #### [facility] [address] [place] [address] Dr. Ibis Garcia micrscopic examination will be performed if indicated. Normal [facility] Comment on above: Performed By: #### A CET, SALYC #### [facility] [address] [place] [address] Dr. Ibis Jimenez Glucose Ql (U) Negative Normal NEGATIVE [facility] Comment on above: Performed By: #### A CET, SALYC #### [facility] [address] [place] [address] Dr. Ibis Jimenez Hemoglobin Ql (U) Negative Normal NEGATIVE [facility] Comment on above: Performed By: #### A CET, SALYC #### [facility] [address] [place] [address] Dr. Ibis Jimenez Ketones Ql (U) Negative Normal NEGATIVE [facility] Comment on above: Performed By: #### A CET, SALYC #### [facility] [address] [place] [address] Dr. Ibis Jimenez LEUKOCYTES Negative Normal NEGATIVE [facility] Comment on above: Performed By: #### A CET, SALYC #### [facility] [address] [place] [address] Dr. Ibis Jimenez Nitrite Ql (U) Negative Normal NEGATIVE [facility] Comment on above: Performed By: #### A CET, SALYC #### [facility] [address] [place] [address] Dr. Ibis Jimenez pH (U) 5.0 [pH] Normal 5-9 [facility] Comment on above: Performed By: #### A CET, SALYC #### [facility] [address] [place] [address] Dr. Ibis Jimenez SPEC GRAVITY >=1.030 Abnormal 1.005-<=1.02 5 [facility] Comment on above: Performed By: #### A CET, SALYC #### [facility] [address] [place] [address] Dr. Ibis Jimenez UA PROTEIN Negative Normal NEGATIVE/ TRACE [facility] Comment on above: Performed By: #### A CET, SALYC #### [facility] [address] [place] [address] Dr. Ibis Jimenez UR MICRO IND NOT INDICATED Normal [facility] Comment on above: Performed By: #### A CET, SALYC #### [facility] [address] [place] [address] Dr. Ibis Jimenez Urobilinogen Qn (U) 0.2 {Dinorah'U}/dL Normal 0.2 - 1. 0 [facility] Comment on above: Performed By: #### A CET, SALYC #### [facility] [address] [place] [address] Dr. Ibis Jimenez PROF CHEM 8 (BAS METB)on Anion gap [Moles/Vol] 13.1 mmol/L Normal [facility] Comment on above: Performed By: #### M DAVID #### [facility] [address] [place] [address] Dr. Ibis Jimenez Calcium [Mass/Vol] 8.3 mg/dL Critically low 8.5-10.1 [facility] Comment on above: Performed By: #### M DAVID #### [facility] [address] [place] [address] Dr. Ibis Jimenez Chloride [Moles/Vol] 109 mmol/L Critically high 98-107 [facility] Comment on above: Performed By: #### M DAVID #### [facility] [address] [place] [address] Dr. Ibis Jimenez CO2 [Moles/Vol] 25.7 mmol/L Normal 21.0-32.0 [facility] Comment on above: Performed By: #### M DAVID #### [facility] [address] [place] [address] Dr. Ibis Jimenez Creatinine [Mass/Vol] 0.82 mg/dL Normal 0.55-1.02 [facility] Comment on above: Performed By: #### M DAVID #### [facility] [address] [address] [address] Ibis Jimenez EGFR-AF UGANDAN >60 Normal >=60 [facility] Comment on above: Performed By: #### M DAVID #### [facility] [address] [address] [address] Ibis Jimenez EGFR-NON AF UGANDAN >60 Normal >=60 [facility] Comment on above: Performed By: #### M DAVID #### [facility] [address] [address] [address] Ibis Jimenez Glucose [Mass/Vol] 95 mg/dL Normal 74-106 [facility] Comment on above: Performed By: #### M DAVID #### [facility] [address] [address] [address] Ibis Jimenez Potassium [Moles/Vol] 3.8 mmol/L Normal 3.5-5.1 [facility] Comment on above: Performed By: #### M DAVID #### [facility] [address] [address] [address] Ibis Jimenez Sodium [Moles/Vol] 144 mmol/L Normal 136-145 [facility] Comment on above: Performed By: #### M DAVID #### [facility] [address] [address] [address] Ibis Jimenez Urea nitrogen [Mass/Vol] 16.0 mg/dL Normal 7.0-18.0 [facility] Comment on above: Performed By: #### M DAVID #### [facility] [address] [address] [address] Ibis Jimenez Urea nitrogen/Creatinine [Mass ratio] 19.5 mg/mg Normal [facility] Comment on above: Performed By: #### M DAVID #### [facility] [address] [address] [address] Ibis Jimenez ACETAMINOPHENon 06-19-2022 Acetaminophen [Mass/Vol] ug/mL Critically low 10.0-30.0 [facility] Comment on above: Performed By: #### A KORI DAVIS #### [facility] [address] [place] [address] Dr. Ibis Jimenez DRUG SCREEN RAPID (URINE)on 06-19-2022 AMP Negative Normal NEGATIVE [facility] Comment on above: Performed By: #### M DAVID #### [facility] [address] [place] [address] Dr. Ibis Jimenez BAR Positive Abnormal NEGATIVE [facility] Comment on above: Performed By: #### M DAVID #### [facility] [address] [place] [address] Dr. Ibis Jimenez BUP Negative Normal NEGATIVE [facility] Comment on above: Performed By: #### M DAVID #### [facility] [address] [place] [address] Dr. Ibis Jimenez BZO Positive Abnormal NEGATIVE [facility] Comment on above: Performed By: #### M DAVID #### [facility] [address] [place] [address] Dr. Ibis Jimenez SEMAJ Negative Normal NEGATIVE [facility] Comment on above: Performed By: #### M DAVID #### [facility] [address] [place] [address] Dr. Ibis Jimenez CUT-OFFS SEE BELOW Normal [facility] Comment on above: Result Comment: AMP [...] ng/mL Performed By: #### M DAVID #### [facility] [address] [place] [address] Dr. Ibis Jimenez DRUG CUT HEADER DRUG CLASS TEST SYSTEM CUT-OFF CONCENTRATIONS ARE FOLLOWS: Normal [facility] Comment on above: Performed By: #### M DAVID #### [facility] [address] [place] [address] Dr. Ibis Jimenez mAMP Negative Normal NEGATIVE [facility] Comment on above: Performed By: #### M DAVID #### [facility] [address] [place] [address] Dr. Ibis Jimenez MTD Negative Normal NEGATIVE [facility] Comment on above: Performed By: #### M DAVID #### [facility] [address] [address] [address] Ibis Jimenez OPI Positive Abnormal NEGATIVE [facility] Comment on above: Performed By: #### M DAVID #### [facility] [address] [place] [address] Dr. Ibis Jimenez OXY Negative Normal NEGATIVE [facility] Comment on above: Performed By: #### M DAVID #### [facility] [address] [place] [address] Dr. Ibis Jimenez PCP Negative Normal NEGATIVE [facility] Comment on above: Performed By: #### M DAVID #### [facility] [address] [place] [address] Dr. Ibis Jimenez PPX Negative Normal NEGATIVE [facility] Comment on above: Performed By: #### M DAVID #### [facility] [address] [place] [address] Dr. Ibis Jimenez TCA Negative Normal NEGATIVE [facility] Comment on above: Performed By: #### M DAVID #### [facility] [address] [place] [address] Dr. Ibis Jimenez THC Positive Abnormal NEGATIVE [facility] Comment on above: Performed By: #### M DAVID #### [facility] [address] [place] [address] Dr. Ibis Jimenez ER URINE PROFILEon 3 Bilirubin Ql (U) Negative Normal NEGATIVE [facility] Comment on above: Performed By: #### M DAVID #### [facility] [address] [place] [address] Dr. Ibis Jimenez Clarity (U) CLEAR Normal CLEAR [facility] Comment on above: Performed By: #### M DAVID #### [facility] [address] [place] [address] Dr. Ibis Jimenez Color (U) YELLOW Normal YELLOW [facility] Comment on above: Performed By: #### M DAVID #### [facility] [address] [place] [address] Dr. Ibis RODRIGUEZ A micrscopic examination will be performed if indicated. Normal [facility] Comment on above: Performed By: #### M DAVID #### [facility] [address] [place] [address] Dr. Ibis Jimenez Glucose Ql (U) Negative Normal NEGATIVE [facility] Comment on above: Performed By: #### M DAVID #### [facility] [address] [place] [address] Dr. Ibis Jimenez Hemoglobin Ql (U) TRACE-INTACT Abnormal NEGATIVE [facility] Comment on above: Performed By: #### M DAVID #### [facility] [address] [place] [address] Dr. Ibis Jimenez Ketones Ql (U) Negative Normal NEGATIVE [facility] Comment on above: Performed By: #### M DAVID #### [facility] [address] [place] [address] Dr. Ibis Jimenez LEUKOCYTES Negative Normal NEGATIVE [facility] Comment on above: Performed By: #### M DAVID #### [facility] [address] [place] [address] Dr. Ibis Jimenez Nitrite Ql (U) Negative Normal NEGATIVE [facility] Comment on above: Performed By: #### M DAVID #### [facility] [address] [place] [address] Dr. Ibis Jimenez pH (U) 6.0 [pH] Normal 5-9 [facility] Comment on above: Performed By: #### M DAVID #### [facility] [address] [place] [address] Dr. Ibis Jimenez Protein (U) [Mass/Vol] 30 mg/dL Abnormal NEGAT ADALGISA/ TRACE [facility] Comment on above: Performed By: #### M DAVID #### [facility] [address] [address] [address] Ibis Jimenez SPEC GRAVITY 1.025 Normal 1.005-<=1.02 5 [facility] Comment on above: Performed By: #### M DAVID #### [facility] [address] [address] [address] Ibis Jimenez UR MICRO IND INDICATED Normal [facility] Comment on above: Performed By: #### M DAVID #### [facility] [address] [address] [address] Ibis Jimenez Urobilinogen Qn (U) 0.2 {Dinorah'U}/dL Normal 0.2 - 1. 0 [facility] Comment on above: Performed By: #### M DAVID #### [facility] [address] [place] [address] Dr. Ibis Jimenez ETHANOL (BLD ALC)on 06-20-19 23 ALC NOTE NOTE: 80 mg/dl is the legal limit for a blood alcohol level Normal [facility] Comment on above: Performed By: #### A MM #### [facility] [address] [place] [address] Dr. Ibis Jimenez Ethanol [Mass/Vol] mg/dL Normal [facility] Comment on above: Performed By: #### A MM #### [facility] [address] [place] [address] Dr. Ibis Jimenez POINT OF CARE GLUCOSEon 05-23 Glucose [Mass/Vol] 88 mg/dL Normal 74-106 [facility] Comment on above: Performed By: #### C VDTBH #### [facility] [address] [place] [address] Dr. Ibis Jimenez URon 06-19-2022 , QUAL Negative Normal NEGATIVE [facility] Comment on above: Performed By: #### M DAVID #### [facility] [address] [place] [address] Dr. Ibis Jimenez PROF CHEM 8 (BAS METB)on Anion gap [Moles/Vol] 12.6 mmol/L Normal [facility] Comment on above: Performed By: #### A MM #### [facility] [address] [address] [address] Ibis Jimenez Calcium [Mass/Vol] 8.4 mg/dL Critically low 8.5-10.1 [facility] Comment on above: Performed By: #### A MM #### [facility] [address] [address] [address] Ibis Jimenez Chloride [Moles/Vol] 107 mmol/L Normal 98-107 [facility] Comment on above: Performed By: #### A MM #### [facility] [address] [address] [address] Ibis Jimenez CO2 [Moles/Vol] 22.5 mmol/L Normal 21.0-32.0 [facility] Comment on above: Performed By: #### A MM #### [facility] [address] [address] [address] Ibis Jimenez Creatinine [Mass/Vol] 0.82 mg/dL Normal 0.55-1.02 [facility] Comment on above: Performed By: #### A MM #### [facility] [address] [address] [address] Ibis Jimenez EGFR-AF UGANDAN >60 Normal >=60 [facility] Comment on above: Performed By: #### A MM #### [facility] [address] [address] [address] Ibis Jimenez EGFR-NON AF UGANDAN >60 Normal >=60 [facility] Comment on above: Performed By: #### A MM #### [facility] [address] [address] [address] Ibis Jimenez Glucose [Mass/Vol] 87 mg/dL Normal 74-106 [facility] Comment on above: Performed By: #### A MM #### [facility] [address] [address] [address] Ibis Jimenez Potassium [Moles/Vol] 4.1 mmol/L Normal 3.5-5.1 [facility] Comment on above: Performed By: #### A MM #### [facility] [address] [address] [address] Ibis Jimenez Sodium [Moles/Vol] 138 mmol/L Normal 136-145 [facility] Comment on above: Performed By: #### A MM #### [facility] [address] [place] [address] Dr. Ibis Jimenez Urea nitrogen [Mass/Vol] 22.0 mg/dL Critically high 7.0-18.0 [facility] Comment on above: Performed By: #### A MM #### [facility] [address] [place] [address] Dr. Ibis Jimenez Urea nitrogen/Creatinine [Mass ratio] 26.8 mg/mg Normal [facility] Comment on above: Performed By: #### A MM #### [facility] [address] [place] [address] Dr. Ibis Jimenez SALICYLATEon 06-19-2022 SALICYLATE <2.8 Normal <=19.9 [facility] Comment on above: Performed By: #### A CET, SALYC #### [facility] [address] [place] [address] Dr. Ibis Jimenez URINE MICROSCOPIC ONLYon BACTERIA NONE SEEN Normal NONE SEEN [facility] Comment on above: Performed By: #### M DAVID #### [facility] [address] [place] [address] Dr. Ibis Jimenez Bacteria identified Cx Nom (U) NOT INDICATED Normal [facility] Comment on above: Performed By: #### M DAVID #### [facility] [address] [place] [address] Dr. Ibis Jimenez CAST SEEN Abnormal NONE SEEN [facility] Comment on above: Performed By: #### M DAVID #### [facility] [address] [place] [address] Dr. Ibis Jimenez Crystals LM Nom (Urine sed) NONE SEEN Normal NONE SEEN [facility] Comment on above: Performed By: #### M DAVID #### [facility] [address] [place] [address] Dr. Ibis Jimenez Epithelial cells LM Ql (Urine sed) MODERATE Abnormal NONE SEEN /RARE [facility] Comment on above: Performed By: #### M DAVID #### [facility] [address] [address] [address] Ibis Jimenez HYALINE CAST FEW Normal [facility] Comment on above: Performed By: #### M DAVID #### [facility] [address] [place] [address] Dr. Ibis Jimenez MUCOUS NONE SEEN Normal NONE SEEN [facility] Comment on above: Performed By: #### M DAVID #### [facility] [address] [place] [address] Dr. Ibis Jimenez RBC 2-5 Abnormal 0-2 [facility] Comment on above: Performed By: #### M DAVID #### [facility] [address] [place] [address] Dr. Ibis Jimenez WBC NONE SEEN Normal NONE SEEN [facility] Comment on above: Performed By: #### M DAVID #### [facility] [address] [place] [address] Dr. Ibis Jimenez CBC AUTO DIFFon 06-11-2022 BASO # 0.0 103/ul Normal 0.0-0.1 [facility] Comment on above: Performed By: #### C VDTBH #### [facility] [address] [place] [address] Dr. Ibis Jimenez Basophils/100 WBC (Bld) 0.3 % Normal 0.2-2.0 [facility] Comment on above: Performed By: #### C VDTBH #### [facility] [address] [place] [address] Dr. Ibis Jimenez EO # 0.0 103/ul Normal 0.0-0.7 [facility] Comment on above: Performed By: #### C VDTBH #### [facility] [address] [place] [address] Dr. Ibis Jimenez Eosinophils/100 WBC (Bld) 0.1 % Critically low 0.9-7.0 [facility] Comment on above: Performed By: #### C VDTBH #### [facility] [address] [place] [address] Dr. Ibis Jimenez Erythrocyte distribution width (RBC) [Ratio] 13.2 % Normal 11.0-15.0 [facility] Comment on above: Performed By: #### C VDTBH #### [facility] [address] [place] [address] Dr. Ibis Jimenez Hematocrit (Bld) [Volume fraction] 38.5 % Normal 36.0-48.0 [facility] Comment on above: Performed By: #### C VDTBH #### [facility] [address] [place] [address] Dr. Ibis Jimenez Hemoglobin (Bld) [Mass/Vol] 12.4 g/dL Normal 12.0-16.0 [facility] Comment on above: Performed By: #### C VDTBH #### [facility] [address] [place] [address] Dr. Ibis Jimenez IG # 0.20 10e3/ul Critically high 0.00-0.03 [facility] Comment on above: Performed By: #### C VDTBH #### [facility] [address] [place] [address] Dr. Ibis Jimenez IG % 1.8 % Critically high 0.0-0.5 [facility] Comment on above: Performed By: #### C VDTBH #### [facility] [address] [place] [address] Dr. Ibis Jimenez LYMPH # 0.5 103/ul Critically low 1.2-3.8 [facility] Comment on above: Performed By: #### C VDTBH #### [facility] [address] [place] [address] Dr. Ibis Jimenez Lymphocytes/100 WBC (Bld) 4.6 % Critically low 20.5-60.0 [facility] Comment on above: Performed By: #### C VDTBH #### [facility] [address] [place] [address] Dr. Ibis Jimenez MANUAL DIFF REQ NO Normal [facility] Comment on above: Performed By: #### C VDTBH #### [facility] [address] [address] [address] Ibis Jimenez MCH (RBC) [Entitic mass] 28.2 pg Normal 26.7-34.0 [facility] Comment on above: Performed By: #### C VDTBH #### [facility] [address] [place] [address] Dr. Ibis Jimenez MCHC (RBC) [Mass/Vol] 32.2 g/dL Normal 29.9-35.2 [facility] Comment on above: Performed By: #### C VDTBH #### [facility] [address] [place] [address] Dr. Ibis Jimenez MCV (RBC) [Entitic vol] 87.5 fL Normal 81.0-99.0 [facility] Comment on above: Performed By: #### C VDTBH #### [facility] [address] [place] [address] Dr. Ibis Jimenez MONO # 0.1 103/ul Critically low 0.3-0.8 [facility] Comment on above: Performed By: #### C VDTBH #### [facility] [address] [place] [address] Dr. Ibis Jimenez Monocytes/100 WBC (Bld) 1.3 % Critically low 1.7-12.0 [facility] Comment on above: Performed By: #### C VDTBH #### [facility] [address] [place] [address] Dr. Ibis Jimenez NEUT # 10.1 103/ul Critically high 1.4-6.5 [facility] Comment on above: Performed By: #### C VDTBH #### [facility] [address] [place] [address] Dr. Ibis Jimenez Neutrophils/100 WBC (Bld) 91.9 % Critically high 43.0-75.0 [facility] Comment on above: Performed By: #### C VDTBH #### [facility] [address] [place] [address] Dr. Ibis Jimenez Platelet mean volume (Bld) [Entitic vol] 9.1 fL Critically low 9.5-13.5 [facility] Comment on above: Performed By: #### C VDTBH #### [facility] [address] [place] [address] Dr. Ibis Jimenez PLT 240 103/ul Normal 150-450 [facility] Comment on above: Performed By: #### C VDTBH #### [facility] [address] [place] [address] Dr. Ibis Jimenez RBC 4.40 106/ul Normal 4.20-5.40 [facility] Comment on above: Performed By: #### C VDTBH #### [facility] [address] [place] [address] Dr. Ibis Jimenez WBC 11.0 103/ul Normal 4.0-11.0 [facility] Comment on above: Performed By: #### C VDTBH #### [facility] [address] [place] [address] Dr. Ibis Jimenez PROF 14(COMP METB)on 023 Albumin [Mass/Vol] 3.3 g/dL Critically low 3.4-5.0 [facility] Comment on above: Performed By: #### B MP #### [facility] [address] [place] [address] Dr. Ibis Jimenez Albumin/Globulin [Mass ratio] 0.9 {ratio} Normal [facility] Comment on above: Performed By: #### B MP #### [facility] [address] [place] [address] Dr. Ibis Jimenez ALP [Catalytic activity/Vol] 63 U/L Normal 46-116 [facility] Comment on above: Performed By: #### B MP #### [facility] [address] [place] [address] Dr. Ibis Jimenez ALT [Catalytic activity/Vol] 32 U/L Normal 14-59 [facility] Comment on above: Performed By: #### B MP #### [facility] [address] [place] [address] Dr. Ibis Jimenez Anion gap [Moles/Vol] 12.9 mmol/L Normal [facility] Comment on above: Performed By: #### B MP #### [facility] [address] [address] [address] Ibis Jimenez AST [Catalytic activity/Vol] 14 U/L Critically low 15-37 [facility] Comment on above: Performed By: #### B MP #### [facility] [address] [address] [address] Ibis Jimenez Bilirubin [Mass/Vol] 0.2 mg/dL Normal 0.2-1.0 [facility] Comment on above: Performed By: #### B MP #### [facility] [address] [address] [address] Ibis Jimenez Calcium [Mass/Vol] 8.5 mg/dL Normal 8.5-10.1 [facility] Comment on above: Performed By: #### B MP #### [facility] [address] [address] [address] Ibis Jimenez Chloride [Moles/Vol] 106 mmol/L Normal 98-107 [facility] Comment on above: Performed By: #### B MP #### [facility] [address] [address] [address] Ibis Jimenez CO2 [Moles/Vol] 26.6 mmol/L Normal 21.0-32.0 [facility] Comment on above: Performed By: #### B MP #### [facility] [address] [address] [address] Ibis Jimenez Creatinine [Mass/Vol] 0.89 mg/dL Normal 0.55-1.02 [facility] Comment on above: Performed By: #### B MP #### [facility] [address] [address] [address] Ibis Jimenez EGFR-AF UGANDAN >60 Normal >=60 [facility] Comment on above: Performed By: #### B MP #### [facility] [address] [address] [address] Ibis Jimenez EGFR-NON AF UGANDAN >60 Normal >=60 [facility] Comment on above: Performed By: #### B MP #### [facility] [address] [address] [address] Ibis Jimenez Globulin (S) [Mass/Vol] 3.6 g/dL Normal [facility] Comment on above: Performed By: #### B MP #### [facility] [address] [address] [address] Ibis Jimenez Glucose [Mass/Vol] 134 mg/dL Critically high 74-106 [facility] Comment on above: Performed By: #### B MP #### [facility] [address] [address] [address] Ibis Jimenez Potassium [Moles/Vol] 4.5 mmol/L Normal 3.5-5.1 [facility] Comment on above: Performed By: #### B MP #### [facility] [address] [place] [address] Dr. Ibis Jimenez Protein [Mass/Vol] 6.9 g/dL Normal 6.4-8.2 [facility] Comment on above: Performed By: #### B MP #### [facility] [address] [address] [address] Ibis Jimenez Sodium [Moles/Vol] 141 mmol/L Normal 136-145 [facility] Comment on above: Performed By: #### B MP #### [facility] [address] [address] [address] Ibis Jimenez Urea nitrogen [Mass/Vol] 15.0 mg/dL Normal 7.0-18.0 [facility] Comment on above: Performed By: #### B MP #### [facility] [address] [place] [address] Dr. Ibis Jimenez Urea nitrogen/Creatinine [Mass ratio] 16.9 mg/mg Normal [facility] Comment on above: Performed By: #### B MP #### [facility] [address] [place] [address] HEAD WO CONon [...] by: NICHOLAS MARCUS Date: 2022-05-23 19:25 Normal [facility] CT LSPINE WO CONon [facility] WO CON CT CERVICAL SPINE WITHOUT CONTRAST. [...] by: SINDY KING Date: 2022-05-23 19:41 Normal [facility] CT HEAD WO CONon 04-01-2022 CT [...] ROBIN IRBY Date: 2022-03-31 22:40 Normal [facility] SARS-CoV-2 (COVID-19) RNA SAURABH+probe Ql (Unsp spec) Not detected Normal NOT DETECTED [facility] Comment on above: Result Comment: When [...] for this test is supported by the [employer] of Health and Human Service's declaration that [...] used). Performed By: #### C VDTB #### [facility] [address] [address] [address] Ibis MELÉNDEZ URINE PROFILEon 3 Bilirubin Ql (U) Negative Normal NEGATIVE [facility] Comment on above: Performed By: #### A CET, SALYC #### [facility] [address] [place] [address] Dr. Ibis Jimenez Clarity (U) CLEAR Normal CLEAR [facility] Comment on above: Performed By: #### A CET, SALYC #### [facility] [address] [place] [address] Dr. Ibis Jimenez Color (U) YELLOW Normal YELLOW [facility] Comment on above: Performed By: #### A CET, SALYC #### [facility] [address] [place] [address] Dr. Ibis Jimenez ERUSYLVAIN A micrscopic examination will be performed if indicated. Normal [facility] Comment on above: Performed By: #### A CET, SALYC #### [facility] [address] [place] [address] Dr. Ibis Jimenez Glucose Ql (U) Negative Normal NEGATIVE [facility] Comment on above: Performed By: #### A CET, SALYC #### [facility] [address] [place] [address] Dr. Ibis Jimenez Hemoglobin Ql (U) SMALL Abnormal NEGATIVE [facility] Comment on above: Performed By: #### A CET, SALYC #### [facility] [address] [place] [address] Dr. Ibis Jimenez Ketones Ql (U) Negative Normal NEGATIVE [facility] Comment on above: Performed By: #### A CET, SALYC #### [facility] [address] [place] [address] Dr. Ibis Jimenez LEUKOCYTES Negative Normal NEGATIVE [facility] Comment on above: Performed By: #### A CET, SALYC #### [facility] [address] [place] [address] Dr. Ibis Jimenez Nitrite Ql (U) Negative Normal NEGATIVE [facility] Comment on above: Performed By: #### A CET, SALYC #### [facility] [address] [place] [address] Dr. Ibis Jimenez pH (U) 5.5 [pH] Normal 5-9 [facility] Comment on above: Performed By: #### A CET, SALYC #### [facility] [address] [place] [address] Dr. Ibis Jimenez SPEC GRAVITY >=1.030 Abnormal 1.005-<=1.02 5 [facility] Comment on above: Performed By: #### A CET, SALYC #### [facility] [address] [place] [address] Dr. Ibis Jimenez UA PROTEIN Negative Normal NEGATIVE/ TRACE [facility] Comment on above: Performed By: #### A CET, SALYC #### [facility] [address] [place] [address] Dr. Ibis Jimenez UR MICRO IND INDICATED Normal [facility] [facility] Comment on above: Performed By: #### A CET, SALYC #### [facility] [address] [place] [address] Dr. Ibis Jimenez Urobilinogen Qn (U) 0.2 {Dinorah'U}/dL Normal 0.2 - 1. 0 [facility] Comment on above: Performed By: #### A CET, SALYC #### [facility] [address] [place] [address] Dr. Ibis Jimenez INFLUENZA A AND B AGon 04-01 INFLUANEGH SEE BELOW Normal [facility] Comment on above: Result Comment: Nega tive for Flu A protein angiten. Infection due to Flu A cannot be ruled out. Flu A angiten in the sample may be below the detection limit of the test. Performed By: #### A MM #### [facility] [address] [place] [address] Dr. Ibis Jimenez INFLUBNEGH SEE BELOW Normal [facility] Comment on above: Result Comment: Nega tive for Flu B protein antigen. Infection due to Flu B cannot be ruled out. Flu B antigen in the sample may be below the detection limit of the test. Performed By: #### A MM #### [facility] [address] [place] [address] Dr. Ibis Jimenez INFLUENZA A AG Negative Normal NEGATIVE SEE COMMENT [facility] Comment on above: Performed By: #### A MM #### [facility] [address] [place] [address] Dr. Ibis Jimenez INFLUENZA B AG Negative Normal NEGATIVE SEE COMMENT [facility] Comment on above: Performed By: #### A MM #### [facility] [address] [place] [address] Dr. Ibis Jimenez LACTATE/LACTIC ACIDon 2022 Lactate [Moles/Vol] 1.9 mmol/L Normal 0.4-1.9 [facility] Comment on above: Performed By: #### L ACT #### [facility] [address] [place] [address] Dr. Ibis Jimenez URINE MICROSCOPIC ONLYon BACTERIA TRACE Abnormal NONE SEEN [facility] Comment on above: Performed By: #### A CET, SALYC #### [facility] [address] [place] [address] Dr. Ibis Jimenez Bacteria identified Cx Nom (U) NOT INDICATED Normal [facility] Comment on above: Performed By: #### A CET, SALYC #### [facility] [address] [place] [address] Dr. Ibis Jimenez CAST NONE SEEN Normal NONE SEEN [facility] Comment on above: Performed By: #### A CET, SALYC #### [facility] [address] [place] [address] Dr. Ibis Jimenez Crystals LM Nom (Urine sed) NONE SEEN Normal NONE SEEN [facility] Comment on above: Performed By: #### A CET, SALYC #### [facility] [address] [place] [address] Dr. Ibis Jimenez Epithelial cells LM Ql (Urine sed) RARE Normal NONE SEEN /RARE [facility] Comment on above: Performed By: #### A CET, SALYC #### [facility] [address] [place] [address] Dr. Ibis Jimenez MUCOUS TRACE Abnormal NONE SEEN [facility] Comment on above: Performed By: #### A CET, SALYC #### [facility] [address] [place] [address] Dr. Ibis Jimenez RBC 0-2 Normal 0-2 [facility] Comment on above: Performed By: #### A CET, SALYC #### [facility] [address] [place] [address] Dr. Ibis Jimenez WBC NONE SEEN Normal NONE SEEN [facility] Comment on above: Performed By: #### A KORI DAVIS #### [facility] [address] [place] [address] Dr. Ibis Jimenez AMMONIAon 03-31-2022 Ammonia (P) [Moles/Vol] 31 umol/L Normal 11-32 [facility] Comment on above: Performed By: #### A MM #### [facility] [address] [place] [address] Dr. Ibis Jimenez CBC AUTO DIFFon 03-31-2022 BASO # 0.0 103/ul Normal 0.0-0.1 [facility] Comment on above: Performed By: #### A MM #### [facility] [address] [place] [address] Dr. Ibis Jimenez Basophils/100 WBC (Bld) 0.4 % Normal 0.2-2.0 [facility] Comment on above: Performed By: #### A MM #### [facility] [address] [place] [address] Dr. Ibis Jimenez EO # 0.5 103/ul Normal 0.0-0.7 [facility] Comment on above: Performed By: #### A MM #### [facility] [address] [place] [address] Dr. Ibis Jimenez Eosinophils/100 WBC (Bld) 6.4 % Normal 0.9-7.0 [facility] Comment on above: Performed By: #### A MM #### [facility] [address] [place] [address] Dr. Ibis Jimenez Erythrocyte distribution width (RBC) [Ratio] 12.8 % Normal 11.0-15.0 [facility] Comment on above: Performed By: #### A MM #### [facility] [address] [place] [address] Dr. Ibis Jimenez Hematocrit (Bld) [Volume fraction] 36.6 % Normal 36.0-48.0 [facility] Comment on above: Performed By: #### A MM #### [facility] [address] [place] [address] Dr. Ibis Jimenez Hemoglobin (Bld) [Mass/Vol] 12.5 g/dL Normal 12.0-16.0 [facility] Comment on above: Performed By: #### A MM #### [facility] [address] [place] [address] Dr. Ibis Jimenez IG # 0.02 10e3/ul Normal 0.00-0.03 [facility] Comment on above: Performed By: #### A MM #### [facility] [address] [place] [address] Dr. Ibis Jimenez IG % 0.3 % Normal 0.0-0.5 [facility] Comment on above: Performed By: #### A MM #### [facility] [address] [place] [address] Dr. Ibis Jimenez LYMPH # 2.0 103/ul Normal 1.2-3.8 [facility] Comment on above: Performed By: #### A MM #### [facility] [address] [place] [address] Dr. Ibis Jimenez Lymphocytes/100 WBC (Bld) 25.0 % Normal 20.5-60.0 [facility] Comment on above: Performed By: #### A MM #### [facility] [address] [place] [address] Dr. Ibis Jimenez MANUAL DIFF REQ NO Normal [facility] Comment on above: Performed By: #### A MM #### [facility] [address] [place] [address] Dr. Ibis Jimenez MCH (RBC) [Entitic mass] 29.5 pg Normal 26.7-34.0 [facility] Comment on above: Performed By: #### A MM #### [facility] [address] [place] [address] Dr. Ibis Jimenez MCHC (RBC) [Mass/Vol] 34.2 g/dL Normal 29.9-35.2 [facility] Comment on above: Performed By: #### A MM #### [facility] [address] [place] [address] Dr. Ibis Jimenez MCV (RBC) [Entitic vol] 86.3 fL Normal 81.0-99.0 [facility] Comment on above: Performed By: #### A MM #### [facility] [address] [place] [address] Dr. Ibis Jimenez MONO # 0.4 103/ul Normal 0.3-0.8 [facility] Comment on above: Performed By: #### A MM #### [facility] [address] [place] [address] Dr. Ibis Jimenez Monocytes/100 WBC (Bld) 5.6 % Normal 1.7-12.0 [facility] Comment on above: Performed By: #### A MM #### [facility] [address] [place] [address] Dr. Ibis Jimenez NEUT # 4.9 103/ul Normal 1.4-6.5 [facility] Comment on above: Performed By: #### A MM #### [facility] [address] [place] [address] Dr. Ibis Jimenez Neutrophils/100 WBC (Bld) 62.3 % Normal 43.0-75.0 [facility] Comment on above: Performed By: #### A MM #### [facility] [address] [place] [address] Dr. Ibis Jimenez Platelet mean volume (Bld) [Entitic vol] 9.5 fL Normal 9.5-13.5 [facility] Comment on above: Performed By: #### A MM #### [facility] [address] [place] [address] Dr. Ibis Jimenez PLT 246 103/ul Normal 150-450 [facility] Comment on above: Performed By: #### A MM #### [facility] [address] [place] [address] Dr. Ibis Jimenez RBC 4.24 106/ul Normal 4.20-5.40 [facility] Comment on above: Performed By: #### A MM #### [facility] [address] [place] [address] Dr. Ibis Jimenez WBC 7.8 103/ul Normal 4.0-11.0 [facility] Comment on above: Performed By: #### A MM #### [facility] [address] [place] [address] Dr. Ibis Jimenez CULTURE BLOODon 03-31-2022 Microscopic examination of blood, culture Culture Observations: NO GROWTH AT 5 DAYS. Normal [facility] Comment on above: Performed By: #### B LDCX2 #### [facility] [address] [place] [address] Dr. Ibis Jimenez Microscopic examination of blood, culture Culture Observations: NO GROWTH AT 5 DAYS. Normal [facility] Comment on above: Performed By: #### B MP #### [facility] [address] [place] [address] Dr. Ibis Jimenez LACTATE/LACTIC ACIDon 2022 Lactate [Moles/Vol] 2.8 mmol/L Critically high 0.4-1.9 [facility] Comment on above: Performed By: #### C VDTBH #### [facility] [address] [place] [address] Dr. Ibis Jimenez PROF 14(COMP METB)on 023 Albumin [Mass/Vol] 3.4 g/dL Normal 3.4-5.0 [facility] Comment on above: Performed By: #### B MP #### [facility] [address] [place] [address] Dr. Ibis Jimenez Albumin/Globulin [Mass ratio] 1.2 {ratio} Normal [facility] Comment on above: Performed By: #### B MP #### [facility] [address] [place] [address] Dr. Ibis Jimenez ALP [Catalytic activity/Vol] 85 U/L Normal 46-116 [facility] Comment on above: Performed By: #### B MP #### [facility] [address] [place] [address] Dr. Ibis Jimenez ALT [Catalytic activity/Vol] 18 U/L Normal 14-59 [facility] Comment on above: Performed By: #### B MP #### [facility] [address] [address] [address] Ibis Jimenez Anion gap [Moles/Vol] 13.2 mmol/L Normal [facility] Comment on above: Performed By: #### B MP #### [facility] [address] [address] [address] Ibis Jimenez AST [Catalytic activity/Vol] 11 U/L Critically low 15-37 [facility] Comment on above: Performed By: #### B MP #### [facility] [address] [address] [address] Ibis Jimenez Bilirubin [Mass/Vol] 0.2 mg/dL Normal 0.2-1.0 [facility] Comment on above: Performed By: #### B MP #### [facility] [address] [place] [address] Dr. Ibis Jimenez Calcium [Mass/Vol] 8.6 mg/dL Normal 8.5-10.1 [facility] Comment on above: Performed By: #### B MP #### [facility] [address] [place] [address] Dr. Ibis Jimenez Chloride [Moles/Vol] 105 mmol/L Normal 98-107 [facility] Comment on above: Performed By: #### B MP #### [facility] [address] [place] [address] Dr. Ibis Jimenez CO2 [Moles/Vol] 25.1 mmol/L Normal 21.0-32.0 [facility] Comment on above: Performed By: #### B MP #### [facility] [address] [place] [address] Dr. Ibis Jimenez Creatinine [Mass/Vol] 0.80 mg/dL Normal 0.55-1.02 [facility] Comment on above: Performed By: #### B MP #### [facility] [address] [address] [address] Ibis Jimenez EGFR-AF UGANDAN >60 Normal >=60 [facility] Comment on above: Performed By: #### B MP #### [facility] [address] [place] [address] Dr. bIis Jimenez EGFR-NON AF UGANDAN >60 Normal >=60 [facility] Comment on above: Performed By: #### B MP #### [facility] [address] [place] [address] Dr. Ibis Jimenez Globulin (S) [Mass/Vol] 2.9 g/dL Normal [facility] Comment on above: Performed By: #### B MP #### [facility] [address] [address] [address] Ibis Jimenez Glucose [Mass/Vol] 99 mg/dL Normal 74-106 [facility] Comment on above: Performed By: #### B MP #### [facility] [address] [place] [address] Dr. Ibis Jimenez Potassium [Moles/Vol] 3.3 mmol/L Critically low 3.5-5.1 [facility] Comment on above: Performed By: #### B MP #### [facility] [address] [place] [address] Dr. Ibis Jimenez Protein [Mass/Vol] 6.3 g/dL Critically low 6.4-8.2 [facility] Comment on above: Performed By: #### B MP #### [facility] [address] [place] [address] Dr. Ibis Jimenez Sodium [Moles/Vol] 140 mmol/L Normal 136-145 [facility] Comment on above: Performed By: #### B MP #### [facility] [address] [place] [address] Dr. Ibis Jimenez Urea nitrogen [Mass/Vol] 10.0 mg/dL Normal 7.0-18.0 [facility] Comment on above: Performed By: #### B MP #### [facility] [address] [address] [address] Ibis Jimenez Urea nitrogen/Creatinine [Mass ratio] 12.5 mg/mg Normal [facility] Comment on above: Performed By: #### B MP #### [facility] [address] [place] [address] Dr. Ibis Jimenez CBC AUTO DIFFon 01-14-2022 BASO # 0.0 103/ul Normal 0.0-0.1 [facility] Comment on above: Performed By: #### A MM #### [facility] [address] [place] [address] Dr. Ibis Jimenez Basophils/100 WBC (Bld) 0.3 % Normal 0.2-2.0 [facility] Comment on above: Performed By: #### A MM #### [facility] [address] [place] [address] Dr. Ibis Jimenez EO # 0.2 103/ul Normal 0.0-0.7 [facility] Comment on above: Performed By: #### A MM #### [facility] [address] [place] [address] Dr. Ibis Jimenez Eosinophils/100 WBC (Bld) 2.7 % Normal 0.9-7.0 [facility] Comment on above: Performed By: #### A MM #### [facility] [address] [place] [address] Dr. Ibis Jimenez Erythrocyte distribution width (RBC) [Ratio] 13.2 % Normal 11.0-15.0 [facility] Comment on above: Performed By: #### A MM #### [facility] [address] [place] [address] Dr. Ibis Jimenez Hematocrit (Bld) [Volume fraction] 35.7 % Critically low 36.0-48.0 [facility] Comment on above: Performed By: #### A MM #### [facility] [address] [place] [address] Dr. Ibis Jimenez Hemoglobin (Bld) [Mass/Vol] 12.2 g/dL Normal 12.0-16.0 [facility] Comment on above: Performed By: #### A MM #### [facility] [address] [place] [address] Dr. Ibis Jimenez IG # 0.04 10e3/ul Critically high 0.00-0.03 [facility] Comment on above: Performed By: #### A MM #### [facility] [address] [place] [address] Dr. Ibis Jimenez IG % 0.5 % Normal 0.0-0.5 [facility] Comment on above: Performed By: #### A MM #### [facility] [address] [place] [address] Dr. Ibis Jimenez LYMPH # 2.1 103/ul Normal 1.2-3.8 [facility] Comment on above: Performed By: #### A MM #### [facility] [address] [place] [address] Dr. Ibis Jimenez Lymphocytes/100 WBC (Bld) 27.3 % Normal 20.5-60.0 [facility] Comment on above: Performed By: #### A MM #### [facility] [address] [place] [address] Dr. Ibis Jimenez MANUAL DIFF REQ NO Normal [facility] Comment on above: Performed By: #### A MM #### [facility] [address] [place] [address] Dr. Ibis Jimenez MCH (RBC) [Entitic mass] 29.0 pg Normal 26.7-34.0 [facility] Comment on above: Performed By: #### A MM #### [facility] [address] [place] [address] Dr. Ibis Jimenez MCHC (RBC) [Mass/Vol] 34.2 g/dL Normal 29.9-35.2 [facility] Comment on above: Performed By: #### A MM #### [facility] [address] [place] [address] Dr. Ibis Jimenez MCV (RBC) [Entitic vol] 84.8 fL Normal 81.0-99.0 [facility] Comment on above: Performed By: #### A MM #### [facility] [address] [place] [address] Dr. Ibis Jimenez MONO # 0.7 103/ul Normal 0.3-0.8 [facility] Comment on above: Performed By: #### A MM #### [facility] [address] [place] [address] Dr. Ibis Jimenez Monocytes/100 WBC (Bld) 8.7 % Normal 1.7-12.0 [facility] Comment on above: Performed By: #### A MM #### [facility] [address] [place] [address] Dr. Ibis Jimenez NEUT # 4.7 103/ul Normal 1.4-6.5 [facility] Comment on above: Performed By: #### A MM #### [facility] [address] [place] [address] Dr. Ibis Jimenez Neutrophils/100 WBC (Bld) 60.5 % Normal 43.0-75.0 [facility] Comment on above: Performed By: #### A MM #### [facility] [address] [place] [address] Dr. Ibis Jimenez Platelet mean volume (Bld) [Entitic vol] 9.6 fL Normal 9.5-13.5 [facility] Comment on above: Performed By: #### A MM #### [facility] [address] [place] [address] Dr. Ibis Jimenez PLT 212 103/ul Normal 150-450 [facility] Comment on above: Performed By: #### A MM #### [facility] [address] [place] [address] Dr. Ibis Jimenez RBC 4.21 106/ul Normal 4.20-5.40 [facility] Comment on above: Performed By: #### A MM #### [facility] [address] [place] [address] Dr. Ibis Jimenez WBC 7.7 103/ul Normal 4.0-11.0 [facility] Comment on above: Performed By: #### A MM #### [facility] [address] [place] [address] ABD/PELV W CONon [...] TONY DAHL Date: 2022-01-14 20:01 Normal [facility] ER URINE PROFILEon 2 Bilirubin Ql (U) Negative Normal NEGATIVE [facility] Comment on above: Performed By: #### A BEE DAVISYC #### [facility] [address] [place] [address] Dr. Ibis Jimenez Clarity (U) CLEAR Normal CLEAR [facility] Comment on above: Performed By: #### A RYAN SALYC #### [facility] [address] [place] [address] Dr. Ibis Jimenez Color (U) LT. YELLOW Normal YELLOW [facility] Comment on above: Performed By: #### A RYAN SALYC #### [facility] [address] [place] [address] Dr. Ibis Jimenez ERUAHD A micrscopic examination will be performed if indicated. Normal [facility] Comment on above: Performed By: #### A CET, SALYC #### [facility] [address] [address] [address] Ibis Jimenez Glucose Ql (U) Negative Normal NEGATIVE [facility] Comment on above: Performed By: #### A CET, SALYC #### [facility] [address] [place] [address] Dr. Ibis Jimenez Hemoglobin Ql (U) Negative Normal NEGATIVE [facility] Comment on above: Performed By: #### A CET, SALYC #### [facility] [address] [place] [address] Dr. Ibis Jimenez Ketones Ql (U) Negative Normal NEGATIVE [facility] Comment on above: Performed By: #### A CET, SALYC #### [facility] [address] [place] [address] Dr. Ibis Jimenez LEUKOCYTES TRACE Abnormal NEGATIVE [facility] Comment on above: Performed By: #### A CET, SALYC #### [facility] [address] [place] [address] Dr. Ibis Jimenez Nitrite Ql (U) Negative Normal NEGATIVE [facility] Comment on above: Performed By: #### A CET, SALYC #### [facility] [address] [place] [address] Dr. Ibis Jimenez pH (U) 5.5 [pH] Normal 5-9 [facility] Comment on above: Performed By: #### A CET, SALYC #### [facility] [address] [place] [address] Dr. Ibis Jimenez SPEC GRAVITY 1.025 Normal 1.005-<=1.02 5 [facility] Comment on above: Performed By: #### A CET, SALYC #### [facility] [address] [place] [address] Dr. Ibis Jimenez UA PROTEIN Negative Normal NEGATIVE/ TRACE [facility] Comment on above: Performed By: #### A CET, SALYC #### [facility] [address] [place] [address] Dr. Ibis Jimenez UR MICRO IND INDICATED Normal [facility] Comment on above: Performed By: #### A CET, SALYC #### [facility] [address] [address] [address] Ibis Jimenez Urobilinogen Qn (U) 0.2 {Dinorah'U}/dL Normal 0.2 - 1. 0 [facility] Comment on above: Performed By: #### A CET, SALYC #### [facility] [address] [place] [address] Dr. Ibis Jimenez URon 01-14-2022 , QUAL Negative Normal NEGATIVE [facility] Comment on above: Performed By: #### A CET, SALYC #### [facility] [address] [address] [address] Ibis Jimenez PROF CHEM 8 (BAS METB)on Anion gap [Moles/Vol] 9.9 mmol/L Normal [facility] Comment on above: Performed By: #### B MP #### [facility] [address] [place] [address] Dr. Ibis Jimenez Calcium [Mass/Vol] 8.6 mg/dL Normal 8.5-10.1 [facility] Comment on above: Performed By: #### B MP #### [facility] [address] [place] [address] Dr. Ibis Jimenez Chloride [Moles/Vol] 105 mmol/L Normal 98-107 [facility] Comment on above: Performed By: #### B MP #### [facility] [address] [place] [address] Dr. Ibis Jimenez CO2 [Moles/Vol] 27.5 mmol/L Normal 21.0-32.0 [facility] Comment on above: Performed By: #### B MP #### [facility] [address] [place] [address] Dr. Ibis Jimenez Creatinine [Mass/Vol] 0.70 mg/dL Normal 0.55-1.02 [facility] Comment on above: Performed By: #### B MP #### [facility] [address] [place] [address] Dr. Ibis Jimenez EGFR-AF UGANDAN >60 Normal >=60 [facility] Comment on above: Performed By: #### B MP #### [facility] [address] [address] [address] Ibis Jimenez EGFR-NON AF UGANDAN >60 Normal >=60 [facility] Comment on above: Performed By: #### B MP #### [facility] [address] [address] [address] Ibis Jimenez Glucose [Mass/Vol] 83 mg/dL Normal 74-106 [facility] Comment on above: Performed By: #### B MP #### [facility] [address] [address] [address] Ibis Jimenez Potassium [Moles/Vol] 4.4 mmol/L Normal 3.5-5.1 [facility] Comment on above: Performed By: #### B MP #### [facility] [address] [place] [address] Dr. Ibis Jimenez Sodium [Moles/Vol] 138 mmol/L Normal 136-145 [facility] Comment on above: Performed By: #### B MP #### [facility] [address] [address] [address] Ibis Jimenez Urea nitrogen [Mass/Vol] 13.0 mg/dL Normal 7.0-18.0 [facility] Comment on above: Performed By: #### B MP #### [facility] [address] [address] [address] Ibis Jimenez Urea nitrogen/Creatinine [Mass ratio] 18.6 mg/mg Normal [facility] Comment on above: Performed By: #### B MP #### [facility] [address] [address] [address] Ibis Jimenez URINE MICROSCOPIC ONLYon BACTERIA NONE SEEN Normal NONE SEEN [facility] Comment on above: Performed By: #### A CET, SALYC #### [facility] [address] [address] [address] Ibis Jimenez Bacteria identified Cx Nom (U) NOT INDICATED Normal [facility] Comment on above: Performed By: #### A CET, SALYC #### [facility] [address] [place] [address] Dr. Ibis Jimenez CAST NONE SEEN Normal NONE SEEN [facility] Comment on above: Performed By: #### A CET, SALYC #### [facility] [address] [place] [address] Dr. Ibis Jimenez Crystals LM Nom (Urine sed) NONE SEEN Normal NONE SEEN [facility] Comment on above: Performed By: #### A CET, SALYC #### [facility] [address] [place] [address] Dr. Ibis Jimenez Epithelial cells LM Ql (Urine sed) FEW Abnormal NONE SEEN /RARE [facility] Comment on above: Performed By: #### A CET, SALYC #### [facility] [address] [place] [address] Dr. Ibis Jimenez MUCOUS NONE SEEN Normal NONE SEEN [facility] Comment on above: Performed By: #### A CET, SALYC #### [facility] [address] [place] [address] Dr. Ibis Jimenez RBC NONE SEEN Abnormal 0-2 [facility] Comment on above: Performed By: #### A CET, SALYC #### [facility] [address] [place] [address] Dr. Ibis Jimenez WBC NONE SEEN Normal NONE SEEN [facility] Comment on above: Performed By: #### A CET, SALYC #### [facility] [address] [place] [address] Dr. Ibis Jimenez CBC AUTO DIFFon 01-07-2022 BASO # 0.0 103/ul Normal 0.0-0.1 [facility] Comment on above: Performed By: #### A CET, SALYC #### [facility] [address] [place] [address] Dr. Ibis Jimenez Basophils/100 WBC (Bld) 0.2 % Normal 0.2-2.0 [facility] Comment on above: Performed By: #### A CET, SALYC #### [facility] [address] [place] [address] Dr. Ibis Jimenez EO # 0.0 103/ul Normal 0.0-0.7 [facility] Comment on above: Performed By: #### A CET, SALYC #### [facility] [address] [place] [address] Dr. Ibis Jimenez Eosinophils/100 WBC (Bld) 0.4 % Critically low 0.9-7.0 [facility] Comment on above: Performed By: #### A CET, SALYC #### [facility] [address] [place] [address] Dr. Ibis Jimenez Erythrocyte distribution width (RBC) [Ratio] 13.2 % Normal 11.0-15.0 [facility] Comment on above: Performed By: #### A CET, SALYC #### [facility] [address] [place] [address] Dr. Ibis Jimenez Hematocrit (Bld) [Volume fraction] 39.7 % Normal 36.0-48.0 [facility] Comment on above: Performed By: #### A CET, SALYC #### [facility] [address] [place] [address] Dr. Ibis Jimenez Hemoglobin (Bld) [Mass/Vol] 13.4 g/dL Normal 12.0-16.0 [facility] Comment on above: Performed By: #### A CET, SALYC #### [facility] [address] [place] [address] Dr. Ibis Jimenez IG # 0.06 10e3/ul Critically high 0.00-0.03 [facility] Comment on above: Performed By: #### A CET, SALYC #### [facility] [address] [place] [address] Dr. Ibis Jimenez IG % 0.5 % Normal 0.0-0.5 [facility] Comment on above: Performed By: #### A CET, SALYC #### [facility] [address] [place] [address] Dr. Ibis Jimenez LYMPH # 2.6 103/ul Normal 1.2-3.8 [facility] Comment on above: Performed By: #### A CET, SALYC #### [facility] [address] [place] [address] Dr. Ibis Jimenez Lymphocytes/100 WBC (Bld) 23.8 % Normal 20.5-60.0 [facility] Comment on above: Performed By: #### A CET, SALYC #### [facility] [address] [place] [address] Dr. Ibis Jimenez MANUAL DIFF REQ NO Normal [facility] Comment on above: Performed By: #### A CET, SALYC #### [facility] [address] [place] [address] Dr. Ibis Jimenez MCH (RBC) [Entitic mass] 28.8 pg Normal 26.7-34.0 [facility] Comment on above: Performed By: #### A CET, SALYC #### [facility] [address] [place] [address] Dr. Ibis Jimenez MCHC (RBC) [Mass/Vol] 33.8 g/dL Normal 29.9-35.2 [facility] Comment on above: Performed By: #### A CET, SALYC #### [facility] [address] [place] [address] Dr. Ibis Jimenez MCV (RBC) [Entitic vol] 85.2 fL Normal 81.0-99.0 [facility] Comment on above: Performed By: #### A CET, SALYC #### [facility] [address] [place] [address] Dr. Ibis Jimenez MONO # 0.8 103/ul Normal 0.3-0.8 [facility] Comment on above: Performed By: #### A CET, SALYC #### [facility] [address] [place] [address] Dr. Ibis Jimenez Monocytes/100 WBC (Bld) 7.7 % Normal 1.7-12.0 [facility] Comment on above: Performed By: #### A CET, SALYC #### [facility] [address] [place] [address] Dr. Ibis Jimenez NEUT # 7.4 103/ul Critically high 1.4-6.5 [facility] Comment on above: Performed By: #### A CET, SALYC #### [facility] [address] [address] [address] Ibis Jimenez Neutrophils/100 WBC (Bld) 67.4 % Normal 43.0-75.0 [facility] Comment on above: Performed By: #### A CET, SALYC #### [facility] [address] [address] [address] Ibis Jimenez Platelet mean volume (Bld) [Entitic vol] 9.8 fL Normal 9.5-13.5 [facility] Comment on above: Performed By: #### A CET, SALYC #### [facility] [address] [place] [address] Dr. Ibis Jimenez PLT 261 103/ul Normal 150-450 [facility] Comment on above: Performed By: #### A CET, SALYC #### [facility] [address] [place] [address] Dr. Ibis Jimenez RBC 4.66 106/ul Normal 4.20-5.40 [facility] Comment on above: Performed By: #### A CET, SALYC #### [facility] [address] [place] [address] Dr. Ibis Jimenez WBC 10.9 103/ul Normal 4.0-11.0 [facility] Comment on above: Performed By: #### A CET, SALYC #### [facility] [address] [place] [address] Dr. Ibis Jimenez PROF CHEM 8 (BAS METB)on Anion gap [Moles/Vol] 14.1 mmol/L Normal [facility] Comment on above: Performed By: #### B MP #### [facility] [address] [place] [address] Dr. Ibis Jimenez Calcium [Mass/Vol] 8.5 mg/dL Normal 8.5-10.1 [facility] Comment on above: Performed By: #### B MP #### [facility] [address] [place] [address] Dr. Ibis Jimenez Chloride [Moles/Vol] 103 mmol/L Normal 98-107 [facility] Comment on above: Performed By: #### B MP #### [facility] [address] [address] [address] Ibis Jimenez CO2 [Moles/Vol] 22.5 mmol/L Normal 21.0-32.0 [facility] Comment on above: Performed By: #### B MP #### [facility] [address] [address] [address] Ibis Jimenez Creatinine [Mass/Vol] 0.64 mg/dL Normal 0.55-1.02 [facility] Comment on above: Performed By: #### B MP #### [facility] [address] [address] [address] Ibis Jimenez EGFR-AF UGANDAN >60 Normal >=60 [facility] Comment on above: Performed By: #### B MP #### [facility] [address] [address] [address] Ibis Jimenez EGFR-NON AF UGANDAN >60 Normal >=60 [facility] Comment on above: Performed By: #### B MP #### [facility] [address] [address] [address] Ibis Jimenez Glucose [Mass/Vol] 141 mg/dL Critically high 74-106 [facility] Comment on above: Performed By: #### B MP #### [facility] [address] [address] [address] Ibis Jimenez Potassium [Moles/Vol] 3.6 mmol/L Normal 3.5-5.1 [facility] Comment on above: Performed By: #### B MP #### [facility] [address] [address] [address] Ibis Jimenez Sodium [Moles/Vol] 136 mmol/L Normal 136-145 [facility] Comment on above: Performed By: #### B MP #### [facility] [address] [address] [address] Ibis Jimenez Urea nitrogen [Mass/Vol] 16.0 mg/dL Normal 7.0-18.0 [facility] Comment on above: Performed By: #### B MP #### [facility] [address] [place] [address] Dr. Ibis Jimenez Urea nitrogen/Creatinine [Mass ratio] 25.0 mg/mg Normal [facility] Comment on above: Performed By: #### B MP #### [facility] [address] [place] [address] Dr. Ibis Jimenez CBC AUTO DIFFon 11-04-2021 BASO # 0.0 103/ul Normal 0.0-0.1 [facility] Comment on above: Performed By: #### A CET, SALYC #### [facility] [address] [place] [address] Dr. Ibis Jimenez Basophils/100 WBC (Bld) 0.4 % Normal 0.2-2.0 [facility] Comment on above: Performed By: #### A CET, SALYC #### [facility] [address] [place] [address] Dr. Ibis Jimenez EO # 0.2 103/ul Normal 0.0-0.7 [facility] Comment on above: Performed By: #### A CET, SALYC #### [facility] [address] [place] [address] Dr. Ibis Jimenez Eosinophils/100 WBC (Bld) 4.1 % Normal 0.9-7.0 [facility] Comment on above: Performed By: #### A CET, SALYC #### [facility] [address] [place] [address] Dr. Ibis Jimenez Erythrocyte distribution width (RBC) [Ratio] 13.2 % Normal 11.0-15.0 [facility] Comment on above: Performed By: #### A CET, SALYC #### [facility] [address] [place] [address] Dr. Ibis Jimenez Hematocrit (Bld) [Volume fraction] 34.3 % Critically low 36.0-48.0 [facility] Comment on above: Performed By: #### A CET, SALYC #### [facility] [address] [place] [address] Dr. Ibis Jimenez Hemoglobin (Bld) [Mass/Vol] 11.5 g/dL Critically low 12.0-16.0 [facility] Comment on above: Performed By: #### A CET, SALYC #### [facility] [address] [address] [address] Ibis Jimenez IG # 0.01 10e3/ul Normal 0.00-0.03 [facility] Comment on above: Performed By: #### A CET, SALYC #### [facility] [address] [address] [address] Ibis Jimenez IG % 0.2 % Normal 0.0-0.5 [facility] Comment on above: Performed By: #### A CET, SALYC #### [facility] [address] [address] [address] Ibis Jimenez LYMPH # 1.5 103/ul Normal 1.2-3.8 [facility] Comment on above: Performed By: #### A CET, SALYC #### [facility] [address] [address] [address] Ibis Jimenez Lymphocytes/100 WBC (Bld) 26.4 % Normal 20.5-60.0 [facility] Comment on above: Performed By: #### A CET, SALYC #### [facility] [address] [address] [address] Ibis Jimenez MANUAL DIFF REQ NO Normal [facility] Comment on above: Performed By: #### A CET, SALYC #### [facility] [address] [address] [address] Ibis Jimenez MCH (RBC) [Entitic mass] 28.8 pg Normal 26.7-34.0 [facility] Comment on above: Performed By: #### A CET, SALYC #### [facility] [address] [address] [address] Ibis Jimenez MCHC (RBC) [Mass/Vol] 33.5 g/dL Normal 29.9-35.2 [facility] Comment on above: Performed By: #### A CET, SALYC #### [facility] [address] [address] [address] Ibis Jimenez MCV (RBC) [Entitic vol] 86.0 fL Normal 81.0-99.0 [facility] Comment on above: Performed By: #### A CET, SALYC #### [facility] [address] [place] [address] Dr. Ibis Jimenez MONO # 0.5 103/ul Normal 0.3-0.8 [facility] Comment on above: Performed By: #### A CET, SALYC #### [facility] [address] [place] [address] Dr. Ibis Jimenez Monocytes/100 WBC (Bld) 8.2 % Normal 1.7-12.0 [facility] Comment on above: Performed By: #### A CET, SALYC #### [facility] [address] [place] [address] Dr. Ibis Jimenez NEUT # 3.4 103/ul Normal 1.4-6.5 [facility] Comment on above: Performed By: #### A CET, SALYC #### [facility] [address] [place] [address] Dr. Ibis Jimenez Neutrophils/100 WBC (Bld) 60.7 % Normal 43.0-75.0 [facility] Comment on above: Performed By: #### A CET, SALYC #### [facility] [address] [place] [address] Dr. Ibis Jimenez Platelet mean volume (Bld) [Entitic vol] 9.9 fL Normal 9.5-13.5 [facility] Comment on above: Performed By: #### A CET, SALYC #### [facility] [address] [place] [address] Dr. Ibis Jimenez PLT 222 103/ul Normal 150-450 [facility] Comment on above: Performed By: #### A CET, SALYC #### [facility] [address] [place] [address] Dr. Ibis Jimenez RBC 3.99 106/ul Critically low 4.20-5.40 [facility] Comment on above: Performed By: #### A CET, SALYC #### [facility] [address] [place] [address] Dr. Ibis Jimenez WBC 5.6 103/ul Normal 4.0-11.0 [facility] Comment on above: Performed By: #### A KORI DAVIS #### [facility] [address] [place] [address] Dr. Ibis Jimenez PROF CHEM 8 (BAS METB)on Anion gap [Moles/Vol] 10.5 mmol/L Normal [facility] Comment on above: Performed By: #### B MP #### [facility] [address] [place] [address] Dr. Ibis Jimenez Calcium [Mass/Vol] 8.8 mg/dL Normal 8.5-10.1 [facility] Comment on above: Performed By: #### B MP #### [facility] [address] [place] [address] Dr. Ibis Jimenez Chloride [Moles/Vol] 105 mmol/L Normal 98-107 [facility] Comment on above: Performed By: #### B MP #### [facility] [address] [place] [address] Dr. Ibis Jimenez CO2 [Moles/Vol] 24.9 mmol/L Normal 21.0-32.0 [facility] Comment on above: Performed By: #### B MP #### [facility] [address] [place] [address] Dr. Ibis Jimenez Creatinine [Mass/Vol] 0.71 mg/dL Normal 0.55-1.02 [facility] Comment on above: Performed By: #### B MP #### [facility] [address] [place] [address] Dr. Ibis Jimenez EGFR-AF UGANDAN >60 Normal >=60 [facility] Comment on above: Performed By: #### B MP #### [facility] [address] [place] [address] Dr. Ibis Jimenez EGFR-NON AF UGANDAN >60 Normal >=60 [facility] Comment on above: Performed By: #### B MP #### [facility] [address] [place] [address] Dr. Ibis Jimenez Glucose [Mass/Vol] 103 mg/dL Normal 74-106 [facility] Comment on above: Performed By: #### B MP #### [facility] [address] [address] [address] Ibis Jimenez Potassium [Moles/Vol] 3.4 mmol/L Critically low 3.5-5.1 [facility] Comment on above: Performed By: #### B MP #### [facility] [address] [address] [address] Ibis Jimenez Sodium [Moles/Vol] 137 mmol/L Normal 136-145 [facility] Comment on above: Performed By: #### B MP #### [facility] [address] [address] [address] Ibis Jimenez Urea nitrogen [Mass/Vol] 17.0 mg/dL Normal 7.0-18.0 [facility] Comment on above: Performed By: #### B MP #### [facility] [address] [address] [address] Ibis Jimenez Urea nitrogen/Creatinine [Mass ratio] 23.9 mg/mg Normal [facility] Comment on above: Performed By: #### B MP #### [facility] [address] [address] [address] Ibis Jimenez Basic Metab w/rfx MGon 10-20 (cont.) Normal [facility] Comment on above: Result Comment: Aver age GFR for 20-29 years old: 116 mL/min/1.73sq m Chronic Kidney Disease: <60 mL/min/1.73sq m Kidney failure: <15 mL/min/1.73sq m eGFR calculated using average adult body mass. Additional eGFR calculator available at: http://www.[employer].com/multiple_crcl_2012.htm Performed By: #### B MPX #### [employer] [facility] [place], [place] [id number] [employer]: Tavon Nicole MD Anion gap [Moles/Vol] 10 mmol/L Normal 9-17 [facility] Comment on above: Performed By: #### B MPX #### [address] [address] [employer]: Tavon Nicole MD Calcium [Mass/Vol] 7.8 mg/dL Low 8.6-10.4 [facility] Comment on above: Performed By: #### B MPX #### [address] [address] [employer]: Tavon Nicole MD Chloride [Moles/Vol] 109 mmol/L High 98-107 [facility] Comment on above: Performed By: #### B MPX #### [address] [address] [employer]: Tavon Nicole MD CO2 [Moles/Vol] 20 mmol/L Normal 20-31 [facility] Comment on above: Performed By: #### B MPX #### [address] [address] [employer]: Tavon Nicole MD Creatinine [Mass/Vol] 0.45 mg/dL Low 0.50-0.90 [facility] Comment on above: Performed By: #### B MPX #### [address] [address] [employer]: Tavon Nicole MD GFR, Amer >60 Normal >[address] [facility] Comment on above: Performed By: #### B MPX #### [address] [address] [employer]: Tavon Nicole MD GFR,non Amer >60 Normal >60 [facility] Comment on above: Performed By: #### B MPX #### [address] [address] [employer]: Tavon Nicole MD Glucose [Mass/Vol] 84 mg/dL Normal 70-99 [facility] Comment on above: Performed By: #### B MPX #### [employer] [address] [place] [address] [employer]: Tavon Nicole MD Potassium [Moles/Vol] 4.1 mmol/L Normal 3.7-5.3 [facility] Comment on above: Result Comment: SPEC IMEN SLIGHTLY HEMOLYZED, RESULTS MAY BE ADVERSELY AFFECTED. Performed By: #### B MPX #### [facility] [facility] [place] [address] [employer]: Tavon Nicole MD Sodium [Moles/Vol] 139 mmol/L Normal 135-144 [facility] Comment on above: Performed By: #### B MPX #### [employer] [address] [place] [address] [employer]: Tavon Nicole MD Urea nitrogen [Mass/Vol] 8 mg/dL Normal 6-20 [facility] Comment on above: Performed By: #### B MPX #### [employer] [facility] [place] [address] [employer]: Tavon Nicole MD Basic Metabolic Panel w/ Ref rossi to MGon 10-20-2021 Anion gap [Moles/Vol] 10 mmol/L 9 - 17 mmol/L [employer] [facility] Calcium [Mass/Vol] 7.8 mg/dL Low 8.6 - 10. 4 mg/dL [employer] [facility] Chloride [Moles/Vol] 109 mmol/L High 98 - 10 7 mmol/L [employer] [facility] CO2 [Moles/Vol] 20 mmol/L 20 - 31 mmol/L [employer] [facility] Creatinine [Mass/Vol] 0.45 mg/dL Low 0.5 - 0.9 mg/dL [employer] GFR >60 60 - PI NF mL/min [employer] [facility] GFR Non- >60 60 - PINF mL/min [employer] [facility] GFR/1.73 sq M.predicted MDRD (S/P/Bld) [Vol rate/Area] [facility] Comment on above: Average GFR for 20-2 9 years old: 116 mL/min/1.73sq m Chronic Kidney Disease: <60 mL/min/1.73sq m Kidney failure: <15 mL/min/1.73sq m eGFR calculated using average adult body mass. Additional eGFR calculator available at: http://www.[employer]/multiple_crcl_2012.htm Glucose [Mass/Vol] 84 mg/dL 70 - 99 mg/dL [facility] Interpretation and review of laboratory results Abnormal [facility] Potassium [Moles/Vol] 4.1 mmol/L 3.7 - 5.3 mmol/L [facility] Comment on above: SPECIMEN SLIGHTLY HE MOLYZED, RESULTS MAY BE ADVERSELY AFFECTED. Sodium [Moles/Vol] 139 mmol/L 135 - 144 mmol/L [facility] Urea nitrogen (BldV) [Mass/Vol] 8 mg/dL 6 - 20 mg/dL [facility] CBC with Auto Differentialon 10-20-2021 Absolute Eos # 0.15 [facility] Absolute Immature Granulocyte [facility] Absolute Lymph # 1.48 [facility] Absolute [place] # 0.28 [facility] RS [facility] Basophils (Bld) [#/Vol] 0.03 10*3/uL [facility] Basophils/100 WBC (Bld) 1 % 0 - 2 % B [facility] Eosinophils/100 WBC (Bld) 3 % 1 [...] % 3 - 12 % B ON [facility] NRBC Automated 0.0 0.0 per 100 [...] [facility] WBC (Bld) [#/Vol] 4.4 10*3/uL [facility] CBC with Diffon 10-20-2021 Abs. Basophil 0.03 k/uL Normal 0.00-0.20 [facility] Comment on above: Performed By: #### C DP, IPF #### [place] [address] [employer]: Tavon Nicole MD Abs.Imm.Granulocyte <0.03 Normal 0.00-0.30 [facility] Comment on above: Performed By: #### C DP, IPF #### [facility] [address] [place] [address] [employer]: Tavon Nicole MD Abs.Neutrophil (Seg) 2.42 k/uL Normal 1.50-8.10 [facility] Comment on above: Performed By: #### C DP, IPF #### [facility] [address] [place] [address] [employer]: Tavon Nicole MD Basophils/100 WBC (Bld) 1 % Normal 0-2 [facility] Comment on above: Performed By: #### C DP, IPF #### [address] [address] [employer]: Tavon Nicole MD Eosinophils (Bld) [#/Vol] 0.15 10*3/uL Normal 0.00-0.44 [facility] Comment on above: Performed By: #### C DP, IPF #### [place] [address] [employer]: Tavon Nicole MD Eosinophils/100 WBC (Bld) 3 % Normal 1-4 [facility] Comment on above: Performed By: #### C DP, IPF #### [place] [address] [employer]: Tavon Nicole MD Immature granulocytes/100 WBC (Bld) 0 % Normal 0 [facility] Comment on above: Performed By: #### C DP, IPF #### [place] [address] [employer]: Tavon Nicole MD Lymphocytes (Bld) [#/Vol] 1.48 10*3/uL Normal 1.10-3.70 [facility] Comment on above: Performed By: #### C DP, IPF #### [place] [address] [employer]: Tavon Nicole MD Lymphocytes/100 WBC (Bld) 34 % Normal 24-43 [facility] Comment on above: Performed By: #### C DP, IPF #### [place] [address] [employer]: Tavon Nicole MD Monocytes (Bld) [#/Vol] 0.28 10*3/uL Normal 0.10-1.20 [facility] Comment on above: Performed By: #### C DP, IPF #### [address] [address] [employer]: Tavon Nicole MD Monocytes/100 WBC (Bld) 6 % Normal 3-12 [facility] Comment on above: Performed By: #### C DP, IPF #### [address] [address] [employer]: Tavon Nicole MD Neutrophil (Seg) 55 % Normal 36-[address] [facility] Comment on above: Performed By: #### C DP, IPF #### [address] [address] [employer]: Tavon Nicole MD Erythrocyte distribution width (RBC) [Ratio] 12.9 % Normal 11.8-14.4 [facility] Comment on above: Performed By: #### C DP, IPF #### [address] [address] [employer]: Tavon Nicole MD Hematocrit (Bld) [Volume fraction] 35.5 % Low 36.3-47.1 [facility] Comment on above: Performed By: #### C DP, IPF #### [address] [address] [employer]: Tavon Nicole MD Hemoglobin (Bld) [Mass/Vol] 11.3 g/dL Low 11.9-15.1 [facility] Comment on above: Performed By: #### C DP, IPF #### [address] [address] [employer]: Tavon Nicole MD MCH (RBC) [Entitic mass] 27.9 pg Normal 25.2-33.5 [facility] Comment on above: Performed By: #### C DP, IPF #### [address] [address] [employer]: Tavon Nicole MD MCHC (RBC) [Mass/Vol] 31.8 g/dL Normal 28.4-34.8 [facility] Comment on above: Performed By: #### C DP, IPF #### [address] [address] [employer]: Tavon Nicole MD MCV (RBC) [Entitic vol] 87.7 fL Normal 82.6-102.9 [facility] Comment on above: Performed By: #### C DP, IPF #### [address] [address] [employer]: Tavon Nicole MD NRBC Automated 0.0 per 100 WBC Normal 0.0 [facility] Comment on above: Performed By: #### C DP, IPF #### [address] [address] [employer]: Tavon Nicole MD Platelet Count See Reflexed IPF Result Normal 138-453 [facility] Comment on above: Performed By: #### C DP, IPF #### [address] [address] [employer]: Tavon Nicole MD RBC (Bld) [#/Vol] 4.05 10*6/uL Normal 3.95-5.11 [facility] Comment on above: Performed By: #### C DP, IPF #### [address] [address] [employer]: Tavon Nicole MD WBC (Bld) [#/Vol] 4.4 10*3/uL Normal 3.5-11.3 [facility] Comment on above: Performed By: #### C DP, IPF #### [address] [address] [employer]: Tavon Nicole MD EEG video monitoringon 10-20 Raiza Land MD 10/20/2021 12:11 PM Referring physician: Chris Blanchard APRN Date:10/20/2021 Start Time:10/19/2021 @1258 End Time: 10/20/2021 @ 1200 Indication Patient with recurrent events Introduction This continuous video-EEG was acquired using a [employer] workstation at 256 samples/s. Electrodes were placed [...] Board Certified. Neurology Board Certified. Electronically Signed [facility] Work Phone: EEG video monitoringOrdered By: Raiza Land on 10-20-2021 [facility] Work Phone: Immature Platelet Fractionon 10-20-2021 Platelet, Fluorescence Platelet clumps present, count appears adequate. [facility] PLT, Immature Fract.on 10-20 Platelet, Fluoresc. Platelet clumps present, count appears adequate. Normal 138-453 [facility] Comment on above: Performed By: #### C DP, IPF #### [facility] [address] [place] [address] [employer]work Washer: Tavon Nicole MD PROLACTINon 10-20-2021 Prolactin 41.7 ng/mL Critically high 4.8-23.3 [facility] Comment on above: Performed By: #### [facility] #### [facility] [address], [place] [address] Dr. Ibis Jimenez CBCon 10-19-2021 Erythrocyte distribution width (RBC) [Ratio] 12.9 % Normal 11.8-14.4 [facility] Comment on above: Performed By: #### T ROPI, LACTIC, CMPX, CBC #### [facility] [address] [place] [phone] [employer] Washer: Tavon Nicole MD Hematocrit (Bld) [Volume fraction] 31.5 % Low 36.3-47.1 [facility] Comment on above: Performed By: #### T ROPI, LACTIC, CMPX, CBC #### [facility] [address] [place] [phone] Flatwork Washer: Tavon Nicole MD Hemoglobin (Bld) [Mass/Vol] 10.8 g/dL Low 11.9-15.1 [facility] Comment on above: Performed By: #### T ROPI, LACTIC, CMPX, CBC #### [facility] [address] [place] [phone] Flatwork Washer: Tavon Nicole MD MCH (RBC) [Entitic mass] 29.1 pg Normal 25.2-33.5 [facility] Comment on above: Performed By: #### T ROPI, LACTIC, CMPX, CBC #### [facility] [address] [place] [phone] Flatwork Washer: Tavon Nicole MD MCHC (RBC) [Mass/Vol] 34.3 g/dL Normal 28.4-34.8 [facility] Comment on above: Performed By: #### T ROPI, LACTIC, CMPX, CBC #### [facility] [address] [place] [phone] Flatwork Washer: Tavon Nicole MD MCV (RBC) [Entitic vol] 84.9 fL Normal 82.6-102.9 [facility] Comment on above: Performed By: #### T ROPI, LACTIC, CMPX, CBC #### [address] [address] Flatwork Washer: Tavon Nicole MD NRBC Automated 0.0 per 100 WBC Normal 0.0 [facility] Comment on above: Performed By: #### T ROPI, LACTIC, CMPX, CBC #### [address] [address] Flatwork Washer: Tavon Nicole MD Platelet mean volume (Bld) [Entitic vol] 9.8 fL Normal 8.1-13.5 [facility] Comment on above: Performed By: #### T ROPI, LACTIC, CMPX, CBC #### [address] [address] Flatwork Washer: Tavon Nicole MD Platelets (Bld) [#/Vol] 281 10*3/uL Normal 138-453 [facility] Comment on above: Performed By: #### T ROPI, LACTIC, CMPX, CBC #### [address] [address] Flatwork Washer: Tavon Nicole MD RBC (Bld) [#/Vol] 3.71 10*6/uL Low 3.95-5.11 [facility] Comment on above: Performed By: #### T ROPI, LACTIC, CMPX, CBC #### [address] [address] Flatwork Washer: Tavon Nicole MD WBC (Bld) [#/Vol] 5.0 10*3/uL Normal 3.5-11.3 [facility] Comment on above: Performed By: #### T ROPI, LACTIC, CMPX, CBC #### [address] [address] [place] [address] Flatwork Washer: Tavon Nicole MD Hematocrit (Bld) [Volume fraction] 31.5 % Low 36.3 - 47.1 % [facility] Hemoglobin (Bld) [Mass/Vol] 10.8 g/dL Low 11.9 - 15.1 g/dL [facility] Interpretation and review of laboratory results Abnormal [facility] MCH (RBC) [Entitic mass] 29.1 pg 25.2 - 33.5 pg [facility] MCHC (RBC) [Mass/Vol] 34.3 g/dL 28.4 - 34.8 g/dL [facility] MCV (RBC) [Entitic vol] 84.9 fL 82.6 - 102.9 fL [facility] NRBC Automated 0.0 0.0 per 100 WBC [facility] Platelet distribution width (Bld) [Ratio] 12.9 % 11.8 - 14.4 % [facility] Platelet mean volume (Bld) [Entitic vol] 9.8 fL 8.1 - 13.5 fL [facility] Platelets (Bld) [#/Vol] 281 10*3/uL [facility] RBC (Bld) [#/Vol] 3.71 10*6/uL Low 3.95 - 5.1 1 m/uL [facility] WBC (Bld) [#/Vol] 5.0 10*3/uL [facility] CBC AUTO DIFFon 10-19-2021 EO # 0.2 103/ul Normal 0.0-0.7 [facility] Comment on above: Performed By: #### A MM #### [facility] [address], [place] [address] Dr. Ibis Jimenez Eosinophils/100 WBC (Bld) 3.9 % Normal 0.9-7.0 [facility] Comment on above: Performed By: #### A MM #### [facility] [address], [place] [address] Dr. Ibis Jimenez Erythrocyte distribution width (RBC) [Ratio] 13.1 % Normal 11.0-15.0 [facility] Comment on above: Performed By: #### A MM #### [facility] [address] [place] [address] Dr. Ibis Jimenez Hematocrit (Bld) [Volume fraction] 33.4 % Critically low 36.0-48.0 [facility] Comment on above: Performed By: #### A MM #### [facility] [address] [place] [address] Dr. Ibis Jimenez Hemoglobin (Bld) [Mass/Vol] 11.1 g/dL Critically low 12.0-16.0 [facility] Comment on above: Performed By: #### A MM #### [facility] [address] [place] [address] Dr. Ibis Jimenez LYMPH # 1.2 103/ul Normal 1.2-3.8 [facility] Comment on above: Performed By: #### A MM #### [facility] [address] [place] [address] Dr. Ibis Jimenez Lymphocytes/100 WBC (Bld) 25.9 % Normal 20.5-60.0 [facility] Comment on above: Performed By: #### A MM #### [facility] [address] [place] [address] Dr. Ibis Jimenez MCHC (RBC) [Mass/Vol] 33.2 g/dL Normal 29.9-35.2 [facility] Comment on above: Performed By: #### A MM #### [facility] [address] [place] [address] Dr. Ibis Jimenez MCV (RBC) [Entitic vol] 85.9 fL Normal 81.0-99.0 [facility] Comment on above: Performed By: #### A MM #### [facility] [address] [place] [address] Dr. Ibis Jimenez Monocytes/100 WBC (Bld) 7.7 % Normal 1.7-12.0 [facility] Comment on above: Performed By: #### A MM #### [facility] [address] [place] [address] Dr. Ibis Jimenez NEUT # 2.9 103/ul Normal 1.4-6.5 [facility] Comment on above: Performed By: #### A MM #### [facility] [address] [place] [address] Dr. Ibis Jimenez Neutrophils/100 WBC (Bld) 61.5 % Normal 43.0-75.0 [facility] Comment on above: Performed By: #### A MM #### [facility] [address] [place] [address] Dr. Ibis Jimenez PLT 264 103/ul Normal 150-450 [facility] Comment on above: Performed By: #### A MM #### [facility] [address] [place] [address] Dr. Ibis Jimenez RBC 3.89 106/ul Critically low 4.20-5.40 [facility] Comment on above: Performed By: #### A MM #### [facility] [address] [place] [address] Dr. Ibis Jimenez WBC 4.7 103/ul Normal 4.0-11.0 [facility] Comment on above: Performed By: #### A MM #### [facility] [address] [place] [address] Dr. Ibis Jimenez BASO # 0.0 103/ul Normal 0.0-0.1 [facility] Comment on above: Performed By: #### A MM #### [facility] [address] [place] [address] Dr. Ibis Jimenez Performed By: #### C VDTB #### [facility] [address] [place] [address] Dr. Ibis Jimenez Basophils/100 WBC (Bld) 0.6 % Normal 0.2-2.0 [facility] Comment on above: Performed By: #### A MM #### [facility] [address] [place] [address] Dr. Ibis Jimenez Performed By: #### C VDTBH #### [facility] [address] [place] [address] Dr. Ibis Jimenez EO # 0.3 103/ul Normal 0.0-0.7 [facility] Comment on above: Performed By: #### C VDTBH #### [facility] [address] [place] [address] Dr. Ibis Jimenez Eosinophils/100 WBC (Bld) 5.0 % Normal 0.9-7.0 [facility] Comment on above: Performed By: #### C VDTBH #### [facility] [address] [place] [address] Dr. Ibis Jimenez Erythrocyte distribution width (RBC) [Ratio] 12.8 % Normal 11.0-15.0 [facility] Comment on above: Performed By: #### C VDTBH #### [facility] [address] [place] [address] Dr. Ibis Jimenez Hematocrit (Bld) [Volume fraction] 38.0 % Normal 36.0-48.0 [facility] Comment on above: Performed By: #### C VDTBH #### [facility] [address] [place] [address] Dr. Ibis Jimenez Hemoglobin (Bld) [Mass/Vol] 12.7 g/dL Normal 12.0-16.0 [facility] Comment on above: Performed By: #### C VDTBH #### [facility] [address] [place] [address] Dr. Ibis Jimenez IG # 0.02 10e3/ul Normal 0.00-0.03 [facility] Comment on above: Performed By: #### A MM #### [facility] [address] [place] [address] Dr. Ibis Jimenez Performed By: #### C VDTBH #### [facility] [address] [place] [address] Dr. Ibis Jimenez IG % 0.4 % Normal 0.0-0.5 [facility] Comment on above: Performed By: #### A MM #### [facility] [address] [place] [address] Dr. Ibis Jimenez Performed By: #### C VDTBH #### [facility] [address] [place] [address] Dr. Ibis Jimenez LYMPH # 1.7 103/ul Normal 1.2-3.8 [facility] Comment on above: Performed By: #### C VDTBH #### [facility] [address] [place] [address] Dr. Ibis Jimenez Lymphocytes/100 WBC (Bld) 30.7 % Normal 20.5-60.0 [facility] Comment on above: Performed By: #### C VDTBH #### [facility] [address] [place] [address] Dr. Ibis Jimenez MANUAL DIFF REQ NO Normal [facility] Comment on above: Performed By: #### A MM #### [facility] [address] [place] [address] Dr. Ibis Jimenez Performed By: #### C VDTBH #### [facility] [address] [place] [address] Dr. Ibis Jimenez MCH (RBC) [Entitic mass] 28.5 pg Normal 26.7-34.0 [facility] Comment on above: Performed By: #### A MM #### [facility] [address] [place] [address] Dr. Ibis Jimenez Performed By: #### C VDTBH #### [facility] [address] [place] [address] Dr. Ibis Jimenez MCHC (RBC) [Mass/Vol] 33.4 g/dL Normal 29.9-35.2 [facility] Comment on above: Performed By: #### C VDTBH #### [facility] [address] [place] [address] Dr. Ibis Jimenez MCV (RBC) [Entitic vol] 85.2 fL Normal 81.0-99.0 [facility] Comment on above: Performed By: #### C VDTBH #### [facility] [address] [place] [address] Dr. Ibis Jimenez MONO # 0.4 103/ul Normal 0.3-0.8 [facility] Comment on above: Performed By: #### A MM #### [facility] [address] [place] [address] Dr. Ibis Jimenez Performed By: #### C VDTBH #### [facility] [address] [place] [address] Dr. Ibis Jimenez Monocytes/100 WBC (Bld) 8.1 % Normal 1.7-12.0 [facility] Comment on above: Performed By: #### C VDTBH #### [facility] [address] [place] [address] Dr. Ibis Jimenez NEUT # 3.0 103/ul Normal 1.4-6.5 [facility] Comment on above: Performed By: #### C VDTBH #### [facility] [address] [place] [address] Dr. Ibis Jimenez Neutrophils/100 WBC (Bld) 55.2 % Normal 43.0-75.0 [facility] Comment on above: Performed By: #### C VDTBH #### [facility] [address] [place] [address] Dr. Ibis Jimenez Platelet mean volume (Bld) [Entitic vol] 9.5 fL Normal 9.5-13.5 [facility] Comment on above: Performed By: #### A MM #### [facility] [address] [place] [address] Dr. Ibis Jimenez Performed By: #### C VDTBH #### [facility] [address] [place] [address] Dr. Ibis Jimenez PLT 343 103/ul Normal 150-450 [facility] Comment on above: Performed By: #### C VDTBH #### [facility] [address] [place] [address] Dr. Ibis Jimenez RBC 4.46 106/ul Normal 4.20-5.40 [facility] Comment on above: Performed By: #### C VDTBH #### [facility] [address] [place] [address] Dr. Ibis Jimenez WBC 5.4 103/ul Normal 4.0-11.0 [facility] Comment on above: Performed By: #### C VDTBH #### [facility] [id number] Ibis Jimenez CT HEAD WO CONon [...] LOPEZ REYNOLDS Date: 2021-10-19 07:31 Normal [facility] Metabolic Pr/rfx MGon 0 10-19-2021 (cont.) Normal [facility] Comment on above: Result Comment: Aver age GFR for 20-29 years old: 116 mL/min/1.73sq m Chronic Kidney Disease: <60 mL/min/1.73sq m Kidney failure: <15 mL/min/1.73sq m eGFR calculated using average adult body mass. Additional eGFR calculator available at: http://www.[employer].Xinrong/multiple_crcl_2011.htm Performed By: #### T ROPI, LACTIC, CMPX, CBC #### [facility] [address] [place] [address] Flatwork Washer: Tavon Nicole MD Albumin [Mass/Vol] 3.5 g/dL Normal 3.5-5.2 [facility] Comment on above: Performed By: #### T ROPI, LACTIC, CMPX, CBC #### [employer] [address] [place] [address] Flatwork Washer: Tavon Nicole MD Albumin/Glob Ratio 1.4 Normal 1.0-2.5 [facility] Comment on above: Performed By: #### T ROPI, LACTIC, CMPX, CBC #### [address] [address] Flatwork Washer: Tavon Nicole MD Alkaline Phos 69 U/L Normal 35-104 [facility] Comment on above: Performed By: #### T ROPI, LACTIC, CMPX, CBC #### [facility] [address] [place] [phone] Flatwork Washer: Tavon Nicole MD ALT [Catalytic activity/Vol] 15 U/L Normal 5-33 [facility] Comment on above: Performed By: #### T ROPI, LACTIC, CMPX, CBC #### [facility] [address] [place] [address] [employer] Washer: Tavon Nicole MD Anion gap [Moles/Vol] 13 mmol/L Normal 9-17 [facility] Comment on above: Performed By: #### T ROPI, LACTIC, CMPX, CBC #### [address] [address] Flatwork Washer: Tavon Nicole MD AST [Catalytic activity/Vol] 12 U/L Normal <32 [facility] Comment on above: Performed By: #### T ROPI, LACTIC, CMPX, CBC #### [address] [address] Flatwork Washer: Tavon Nicole MD Bilirubin [Mass/Vol] 0.24 mg/dL Low 0.3-1.2 [facility] Comment on above: Performed By: #### T ROPI, LACTIC, CMPX, CBC #### [address] [address] Flatwork Washer: Tavon Nicole MD Calcium [Mass/Vol] 8.1 mg/dL Low 8.6-10.4 [facility] Comment on above: Performed By: #### T ROPI, LACTIC, CMPX, CBC #### [facility] [address] [place] [phone] Flatwork Washer: Tavon Nicole MD Chloride [Moles/Vol] 107 mmol/L Normal 98-107 [facility] Comment on above: Performed By: #### T ROPI, LACTIC, CMPX, CBC #### [facility] [address] [place] [phone] Flatwork Washer: Tavon Nicole MD CO2 [Moles/Vol] 19 mmol/L Low 20-31 [facility] Comment on above: Performed By: #### T ROPI, LACTIC, CMPX, CBC #### [facility] [address] [place] [phone] [employer] Washer: Tavon Nicole MD Creatinine [Mass/Vol] 0.53 mg/dL Normal 0.50-0.90 [facility] Comment on above: Performed By: #### T ROPI, LACTIC, CMPX, CBC #### [facility] [address] [place] [phone] Flatwork Washer: Tavon Nicole MD GFR, Amer >60 Normal >[address] [facility] Comment on above: Performed By: #### T ROPI, LACTIC, CMPX, CBC #### [facility] [address] [place] [address] Flatwork Washer: Tavon Nicole MD GFR,non Amer >60 Normal >60 [facility] Comment on above: Performed By: #### T ROPI, LACTIC, CMPX, CBC #### [facility] [address] [place] [phone] Flatwork Washer: Tavon Nicole MD Glucose [Mass/Vol] 81 mg/dL Normal 70-99 [facility] Comment on above: Performed By: #### T ROPI, LACTIC, CMPX, CBC #### [employer] [address] [phone] Flatwork Washer: Tavon Nicole MD Potassium [Moles/Vol] 3.9 mmol/L Normal 3.7-5.3 [facility] Comment on above: Performed By: #### T ROPI, LACTIC, CMPX, CBC #### [facility] [address] [place] [phone] Flatwork Washer: Tavon Nicole MD Protein [Mass/Vol] 6.0 g/dL Low 6.4-8.3 [facility] Comment on above: Performed By: #### T ROPI, LACTIC, CMPX, CBC #### [facility] [address] [place] [phone] Flatwork Washer: Tavon Nicole MD Sodium [Moles/Vol] 139 mmol/L Normal 135-144 [facility] Comment on above: Performed By: #### T ROPI, LACTIC, CMPX, CBC #### [facility] [address] [place] [phone] Flatwork Washer: Tavon Nicole MD Urea nitrogen [Mass/Vol] 10 mg/dL Normal 6-20 [facility] Comment on above: Performed By: #### T ROPI, LACTIC, CMPX, CBC #### [facility] [address] [place] [phone] Flatwork Washer: Tavon Nicole MD Comprehensive Metabolic Pane l w/ Reflex to MGon 10-19-2021 Albumin [Mass/Vol] 3.5 g/dL 3.5 - 5.2 g/dL [facility] Albumin/Globulin [Mass ratio] 1.4 {ratio} 1 - 2.5 [facility] ALP (Bld) [Catalytic activity/Vol] 69 U/L 35 - 104 U/L [facility] [employer] ALT [Catalytic activity/Vol] 15 U/L 5 - 33 U/L [facility] [employer] Anion gap [Moles/Vol] 13 mmol/L 9 - [...] body mass. Additional eGFR calculator available at: http://www.[employer].Xinrong/multiple_crcl_2011.htm Glucose [Mass/Vol] 81 mg/dL 70 - 99 mg/dL [facility] Interpretation and review of laboratory results Abnormal [facility] Potassium [Moles/Vol] 3.9 mmol/L 3.7 - 5.3 mmol/L [facility] Sodium [Moles/Vol] 139 mmol/L 135 - 144 mmol/L [facility] Urea nitrogen (BldV) [Mass/Vol] 10 mg/dL 6 - 20 mg/dL [facility] Covid-19 PCR (CVDTBH)on 09-22 SARS-CoV-2 (COVID-19) RNA SAURABH+probe Ql (Unsp spec) Not detected Normal NOT DETECTED [facility] Comment on above: Result Comment: When [...] for this test is supported by the [employer] of Health and Human Service's declaration that [...] used). Performed By: #### C VDTB #### [facility] [address] [place] [address] Dr. Ibis Jimenez DRUG SCREEN RAPID (URINE)on 10-19-2021 AMP Negative Normal NEGATIVE [facility] Comment on above: Performed By: #### B MP #### [facility] [address] [place] [address] Dr. Ibis Jimenez BAR Positive Abnormal NEGATIVE [facility] Comment on above: Performed By: #### B MP #### [facility] [address] [place] [address] Dr. Ibis Jimenez BUP Negative Normal NEGATIVE [facility] Comment on above: Performed By: #### B MP #### [facility] [address] [place] [address] Dr. Ibis Jimenez BZO Positive Abnormal NEGATIVE [facility] Comment on above: Performed By: #### B MP #### [facility] [address] [place] [address] Dr. Ibis Jimenez SEMAJ Negative Normal NEGATIVE [facility] Comment on above: Performed By: #### B MP #### [facility] [address] [place] [address] Dr. Ibis Jimenez CUT-OFFS SEE BELOW Normal [facility] Comment on above: Result Comment: AMP [...] ng/mL Performed By: #### B MP #### [facility] [address] [place] [address] Dr. Ibis Jimenez DRUG CUT HEADER DRUG CLASS TEST SYSTEM CUT-OFF CONCENTRATIONS ARE FOLLOWS: Normal [facility] Comment on above: Performed By: #### B MP #### [facility] [address] [place] [address] Dr. Ibis Jimenez mAMP Negative Normal NEGATIVE [facility] Comment on above: Performed By: #### B MP #### [facility] [address] [place] [address] Dr. Ibis Jimenez MTD Negative Normal NEGATIVE [facility] Comment on above: Performed By: #### B MP #### [facility] [address] [place] [address] Dr. Ibis Jimenez OPI Positive Abnormal NEGATIVE [facility] Comment on above: Performed By: #### B MP #### [facility] [address] [place] [address] Dr. Ibis Jimenez OXY Positive Abnormal NEGATIVE [facility] Comment on above: Performed By: #### B MP #### [facility] [address] [place] [address] Dr. Ibis Jimenez PCP Negative Normal NEGATIVE [facility] Comment on above: Performed By: #### B MP #### [facility] [address] [place] [address] Dr. Ibis Jimenez PPX Negative Normal NEGATIVE [facility] Comment on above: Performed By: #### B MP #### [facility] [address] [address] [address] Ibis Jimenez TCA Negative Normal NEGATIVE [facility] Comment on above: Performed By: #### B MP #### [facility] [address] [place] [address] Dr. Ibis Jimenez THC Negative Normal NEGATIVE [facility] Comment on above: Performed By: #### B MP #### [facility] [address] [place] [address] Dr. Ibis Jimenez ER URINE PROFILEon 2 Bilirubin Ql (U) Negative Normal NEGATIVE [facility] Comment on above: Performed By: #### B MP #### [facility] [address] [place] [address] Dr. Ibis Jimenez Clarity (U) CLEAR Normal CLEAR [facility] Comment on above: Performed By: #### B MP #### [facility] [address] [place] [address] Dr. Ibis Jimenez Color (U) YELLOW Normal YELLOW [facility] Comment on above: Performed By: #### B MP #### [facility] [address] [place] [address] Dr. Ibis RODRIGUEZ A micrscopic examination will be performed if indicated. Normal [facility] Comment on above: Performed By: #### B MP #### [facility] [address] [place] [address] Dr. Ibis Jimenez Glucose Ql (U) Negative Normal NEGATIVE [facility] Comment on above: Performed By: #### B MP #### [facility] [address] [place] [address] Dr. Ibis Jimenez Hemoglobin Ql (U) TRACE-INTACT Abnormal NEGATIVE [facility] Comment on above: Performed By: #### B MP #### [facility] [address] [place] [address] Dr. Ibis Jimenez Ketones Ql (U) Negative Normal NEGATIVE [facility] Comment on above: Performed By: #### B MP #### [facility] [address] [place] [address] Dr. Ibis Jimenez LEUKOCYTES Negative Normal NEGATIVE [facility] Comment on above: Performed By: #### B MP #### [facility] [address] [place] [address] Dr. Ibis Jimenez Nitrite Ql (U) Negative Normal NEGATIVE [facility] Comment on above: Performed By: #### B MP #### [facility] [address] [place] [address] Dr. Ibis Jimenez pH (U) 5.5 [pH] Normal 5-9 [facility] Comment on above: Performed By: #### B MP #### [facility] [address] [place] [address] Dr. Ibis Jimenez SPEC GRAVITY >=1.030 Abnormal 1.005-<=1.02 5 [facility] Comment on above: Performed By: #### B MP #### [facility] [address] [place] [address] Dr. Ibis Jimenez UA PROTEIN Negative Normal NEGATIVE/ TRACE [facility] Comment on above: Performed By: #### B MP #### [facility] [address] [place] [address] Dr. Ibis Jimenez UR MICRO IND INDICATED Normal [facility] Comment on above: Performed By: #### B MP #### [facility] [address] [place] [address] Dr. Ibis Jimenez Urobilinogen Qn (U) 0.2 {Dinorah'U}/dL Normal 0.2 - 1. 0 [facility] Comment on above: Performed By: #### B MP #### [facility] [address] [place] [address] Dr. Ibis Jimenez LACTATE/LACTIC ACIDon 2021 Lactate [Moles/Vol] 1.2 mmol/L Normal 0.4-1.9 [facility] [facility] Comment on above: Performed By: #### A MM #### [facility] [address] [place] [address] Dr. Ibis Jimenez Lactic Acidon 10-19-2021 Lactic Acid,Whole Bl 0.9 mmol/L Normal 0.7-2.1 [facility] Comment on above: Performed By: #### T ROPI, LACTIC, CMPX, CBC #### [facility] [address] [place] [address] Flatwork Washer: Tavon Nicole MD Lactic Acid, Whole Blood 0.9 mmol/L 0.7 - 2.1 mmol/L [facility] MONOon 10-19-2021 Monocytes (Bld) [#/Vol] Negative Normal NEGATIVE [facility] Comment on above: Performed By: #### M DAVID #### [facility] [address], [place] [address] Dr. Ibis Jimenez MRI BRAIN W WO [...] Carlos Marks DO 10/19/21 Final result Normal [facility] Unremarkable MR brain. [facility] RIS CONSOLIDATED EXAMINATION: MRI OF THE [...] The soft tissues demonstrate no acute abnormality. [facility] R[facility] CON[facility] Carlos Marks DO - 10/19/2021 EXAMINATION: [...] no acute abnormality. IMPRESSION: Unremarkable MR brain. JEREMIAH BURROWS [employer] Work Phone: Radiology Study observation (narrative) JEREMIAH HEATH [email or web address] Work Phone: MRI BRAIN W WO CONTRASTOrder ed By: Carlos Marks on 10-19-2021 JEREMIAH BURROWS [employer] Work Phone: PH VENOUS BLOODon 10-19-2021 PCO2 VENOUS 36.6 mmHg Critically low 40.0-52.0 [facility] Comment on above: Performed By: #### B MP #### [facility] [address] [place] [address] Dr. Ibis Jimenez pH VENOUS 7.387 Normal 7.330-7.430 [facility] Comment on above: Performed By: #### B MP #### [facility] [address] [place] [address] Dr. Ibis Jimenez PROF CHEM 8 (BAS METB)on Anion gap [Moles/Vol] 11.9 mmol/L Normal [facility] Comment on above: Performed By: #### M DAVID #### [facility] [address] [address] [address] Ibis Jimenez Calcium [Mass/Vol] 9.1 mg/dL Normal 8.5-10.1 [facility] Comment on above: Performed By: #### M DAVID #### [facility] [address] [address] [address] Ibis Jimenez Chloride [Moles/Vol] 104 mmol/L Normal 98-107 [facility] Comment on above: Performed By: #### M DAVID #### [facility] [address] [address] [address] Ibis Jimenez CO2 [Moles/Vol] 26.7 mmol/L Normal 21.0-32.0 [facility] Comment on above: Performed By: #### M DAVID #### [facility] [address] [address] [address] Ibis Jimenez Creatinine [Mass/Vol] 0.78 mg/dL Normal 0.55-1.02 [facility] Comment on above: Performed By: #### M DAVID #### [facility] [address] [address] [address] Ibis Jimenez EGFR-AF UGANDAN >60 Normal >=60 [facility] Comment on above: Performed By: #### M DAVID #### [facility] [address] [address] [address] Ibis Jimenez EGFR-NON AF UGANDAN >60 Normal >=60 [facility] Comment on above: Performed By: #### M DAVID #### [facility] [address] [address] [address] Ibis Jimenez Glucose [Mass/Vol] 96 mg/dL Normal 74-106 [facility] Comment on above: Performed By: #### M DAVID #### [facility] [address] [address] [address] Ibis Jimenez Potassium [Moles/Vol] 3.6 mmol/L Normal 3.5-5.1 [facility] Comment on above: Performed By: #### M DAVID #### [facility] [address] [address] [address] Ibis Jimenez Sodium [Moles/Vol] 139 mmol/L Normal 136-145 [facility] Comment on above: Performed By: #### M DAVID #### [facility] [address] [address] [address] Ibis Jimenez Urea nitrogen [Mass/Vol] 14.0 mg/dL Normal 7.0-18.0 [facility] Comment on above: Performed By: #### M DAVID #### [facility] [address] [address] [address] Ibis Jimenez Urea nitrogen/Creatinine [Mass ratio] 17.9 mg/mg Normal [facility] Comment on above: Performed By: #### M DAVID #### [facility] [address] [address] [address] Ibis Jimenez TSHon 10-19-2021 TSH 1.389 uIU/mL Normal 0.358-3.740 [facility] Comment on above: Performed By: #### A CET, SALYC #### [facility] [address] [address] [address] Ibis Jimenez Troponinon 10-19-2021 Troponin, High Sens <6 Normal 0-14 [facility] Comment on above: Result Comment: High Sensitivity Troponin values cannot be compared with other Troponin methodologies. Patients with high levels of Biotin oral intake (i.e >5mg/day) may have falsely decreased Troponin levels. Samples collected within 8 hours of biotin intake may require additional information for diagnosis. Performed By: #### T ROPI, LACTIC, CMPX, CBC #### [facility] [address] [place] [address] [employer]work Washer: Tavon Nicole MD Troponin, High Sensitivity ng/L 0 - 14 ng/L [facility] Comment on above: High Sensitivity Troponin values cannot be compared with other Troponin methodologies. Patients with high levels of Biotin oral intake (i.e >5mg/day) may have falsely decreased Troponin levels. Samples collected within 8 hours of biotin intake may require additional information for diagnosis. [facility] URINE MICROSCOPIC ONLYon BACTERIA TRACE Abnormal NONE SEEN [facility] Comment on above: Performed By: #### B MP #### [facility] [address] [place] [address] Dr. Ibis Jimenez Bacteria identified Cx Nom (U) NOT INDICATED Normal [facility] Comment on above: Performed By: #### B MP #### [facility] [address] [place] [address] Dr. Ibis Jimenez CAST NONE SEEN Normal NONE SEEN [facility] Comment on above: Performed By: #### B MP #### [facility] [address] [place] [address] Dr. Ibis Jimenez Crystals LM Nom (Urine sed) NONE SEEN Normal NONE SEEN [facility] Comment on above: Performed By: #### B MP #### [facility] [address] [place] [address] Dr. Ibis Jimenez Epithelial cells LM Ql (Urine sed) RARE Normal NONE SEEN /RARE [facility] Comment on above: Performed By: #### B MP #### [facility] [address] [address] [address] Ibis Jimenez MUCOUS LARGE Abnormal NONE SEEN [facility] Comment on above: Performed By: #### B MP #### [facility] [id number] Ibis Jimenez RBC 2-5 Abnormal 0-2 [facility] Comment on above: Performed By: #### B MP #### [facility] [id number] Ibis Jimenez WBC 0-2 Abnormal NONE SEEN [facility] Comment on above: Performed By: #### B MP #### [facility] [address] [address] [address] ABD/PELVIS WO CONon [...] JASS LAURENT Date: 2021-10-06 20:08 Normal [facility] URINE PROFILEon 2 Bilirubin Ql (U) Negative Normal NEGATIVE [facility] Comment on above: Performed By: #### M DAVID #### [facility] [address] [address] [address] Ibis Jimenez Clarity (U) CLEAR Normal CLEAR [facility] Comment on above: Performed By: #### M DAVID #### [facility] [address] [address] [address] Ibis Jimenez Color (U) LT. YELLOW Normal YELLOW [facility] Comment on above: Performed By: #### M DAVID #### [facility] [address] [place] [address] Dr. Ibis RODRIGUEZ A micrscopic examination will be performed if indicated. Normal [facility] Comment on above: Performed By: #### M DAVID #### [facility] [address] [address] [address] Ibis Jimenez Glucose Ql (U) Negative Normal NEGATIVE [facility] Comment on above: Performed By: #### M DAVID #### [facility] [address] [place] [address] Dr. Ibis Jimenez Hemoglobin Ql (U) Negative Normal NEGATIVE [facility] Comment on above: Performed By: #### M DAVID #### [facility] [address] [address] [address] Ibis Jimenez Ketones Ql (U) Negative Normal NEGATIVE [facility] Comment on above: Performed By: #### M DAVID #### [facility] [address] [address] [address] Ibis Jimenez LEUKOCYTES Negative Normal NEGATIVE [facility] Comment on above: Performed By: #### M DAVID #### [facility] [address] [address] [address] Ibis Jimenez Nitrite Ql (U) Negative Normal NEGATIVE [facility] Comment on above: Performed By: #### M DAVID #### [facility] [address] [address] [address] Ibis Jimenez pH (U) 8.0 [pH] Normal 5-9 [facility] Comment on above: Performed By: #### M DAVID #### [facility] [address] [place] [address] Dr. Ibis Jimenez SPEC GRAVITY 1.010 Normal 1.005-<=1.02 5 [facility] Comment on above: Performed By: #### M DAVID #### [facility] [address] [place] [address] Dr. Ibis Jimenez UA PROTEIN Negative Normal NEGATIVE/ TRACE [facility] Comment on above: Performed By: #### M DAVID #### [facility] [address] [place] [address] Dr. Ibis Jimenez UR MICRO IND NOT INDICATED Normal [facility] Comment on above: Performed By: #### M DAVID #### [facility] [address] [place] [address] Dr. Ibis Jimenez Urobilinogen Qn (U) 0.2 {Dinorah'U}/dL Normal 0.2 - 1. 0 [facility] Comment on above: Performed By: #### M DAVID #### [facility] [address] [place] [address] Dr. Ibis Jimenez ER URINE PROFILEon 2 Bilirubin Ql (U) Negative Normal NEGATIVE [facility] Comment on above: Performed By: #### C VDTBH #### [facility] [address] [place] [address] Dr. Ibis Jimenez Clarity (U) CLEAR Normal CLEAR [facility] Comment on above: Performed By: #### C VDTBH #### [facility] [address] [place] [address] Dr. Ibis Jimenez Color (U) YELLOW Normal YELLOW [facility] Comment on above: Performed By: #### C VDTBH #### [facility] [address] [place] [address] Dr. Ibis RODRIGUEZ A micrscopic examination will be performed if indicated. Normal [facility] Comment on above: Performed By: #### C VDTBH #### [facility] [address] [place] [address] Dr. Ibis Jimenez Glucose Ql (U) Negative Normal NEGATIVE [facility] Comment on above: Performed By: #### C VDTBH #### [facility] [address] [place] [address] Dr. Ibis Jimenez Hemoglobin Ql (U) Negative Normal NEGATIVE [facility] Comment on above: Performed By: #### C VDTBH #### [facility] [address] [place] [address] Dr. Ibis Jimenez Ketones Ql (U) Negative Normal NEGATIVE [facility] Comment on above: Performed By: #### C VDTBH #### [facility] [address] [place] [address] Dr. Ibis Jimenez LEUKOCYTES Negative Normal NEGATIVE [facility] Comment on above: Performed By: #### C VDTBH #### [facility] [address] [place] [address] Dr. Ibis Jimenez Nitrite Ql (U) Negative Normal NEGATIVE [facility] Comment on above: Performed By: #### C VDTBH #### [facility] [address] [place] [address] Dr. Ibis Jimenez pH (U) 6.0 [pH] Normal 5-9 [facility] Comment on above: Performed By: #### C VDTBH #### [facility] [address] [place] [address] Dr. Ibis Jimenez SPEC GRAVITY 1.025 Normal 1.005-<=1.02 5 [facility] Comment on above: Performed By: #### C VDTBH #### [facility] [address] [place] [address] Dr. Ibis Jimenez UA PROTEIN Negative Normal NEGATIVE/ TRACE [facility] Comment on above: Performed By: #### C VDTBH #### [facility] [address] [place] [address] Dr. Ibis Jimenez UR MICRO IND NOT INDICATED Normal [facility] Comment on above: Performed By: #### C VDTBH #### [facility] [address] [place] [address] Dr. Ibis Jimenez Urobilinogen Qn (U) 0.2 {Dinorah'U}/dL Normal 0.2 - 1. 0 [facility] Comment on above: Performed By: #### C VDTBH #### [facility] [address] [place] [address] Dr. Ibis Jimenez CBC AUTO DIFFon 10-03-2021 BASO # 0.0 103/ul Normal 0.0-0.1 [facility] Comment on above: Performed By: #### B MP #### [facility] [address] [place] [address] Dr. Ibis Jimenez Basophils/100 WBC (Bld) 0.3 % Normal 0.2-2.0 [facility] Comment on above: Performed By: #### B MP #### [facility] [address] [place] [address] Dr. Ibis Jimenez EO # 0.3 103/ul Normal 0.0-0.7 [facility] Comment on above: Performed By: #### B MP #### [facility] [address] [place] [address] Dr. Ibis Jimenez Eosinophils/100 WBC (Bld) 4.1 % Normal 0.9-7.0 [facility] Comment on above: Performed By: #### B MP #### [facility] [address] [place] [address] Dr. Ibis Jimenez Erythrocyte distribution width (RBC) [Ratio] 13.2 % Normal 11.0-15.0 [facility] Comment on above: Performed By: #### B MP #### [facility] [address] [place] [address] Dr. Ibis Jimenez Hematocrit (Bld) [Volume fraction] 35.7 % Critically low 36.0-48.0 [facility] Comment on above: Performed By: #### B MP #### [facility] [address] [place] [address] Dr. Ibis Jimenez Hemoglobin (Bld) [Mass/Vol] 11.6 g/dL Critically low 12.0-16.0 [facility] Comment on above: Performed By: #### B MP #### [facility] [address] [place] [address] Dr. Ibis Jimenez IG # 0.02 10e3/ul Normal 0.00-0.03 [facility] Comment on above: Performed By: #### B MP #### [facility] [address] [place] [address] Dr. Ibis Jimenez IG % 0.3 % Normal 0.0-0.5 [facility] Comment on above: Performed By: #### B MP #### [facility] [address] [place] [address] Dr. Ibis Jimenez LYMPH # 1.5 103/ul Normal 1.2-3.8 [facility] Comment on above: Performed By: #### B MP #### [facility] [address] [place] [address] Dr. Ibis Jimenez Lymphocytes/100 WBC (Bld) 24.3 % Normal 20.5-60.0 [facility] Comment on above: Performed By: #### B MP #### [facility] [address] [place] [address] Dr. Ibis Jimenez MANUAL DIFF REQ NO Normal [facility] Comment on above: Performed By: #### B MP #### [facility] [address] [place] [address] Dr. Ibis Jimenez MCH (RBC) [Entitic mass] 28.9 pg Normal 26.7-34.0 [facility] Comment on above: Performed By: #### B MP #### [facility] [address] [place] [address] Dr. Ibis Jimenez MCHC (RBC) [Mass/Vol] 32.5 g/dL Normal 29.9-35.2 [facility] Comment on above: Performed By: #### B MP #### [facility] [address] [place] [address] Dr. Ibis Jimenez MCV (RBC) [Entitic vol] 89.0 fL Normal 81.0-99.0 [facility] Comment on above: Performed By: #### B MP #### [facility] [address] [place] [address] Dr. Ibis Jimenez MONO # 0.5 103/ul Normal 0.3-0.8 [facility] Comment on above: Performed By: #### B MP #### [facility] [address] [place] [address] Dr. Ibis Jimenez Monocytes/100 WBC (Bld) 7.3 % Normal 1.7-12.0 [facility] Comment on above: Performed By: #### B MP #### [facility] [address] [place] [address] Dr. Ibis Jimenez NEUT # 4.0 103/ul Normal 1.4-6.5 [facility] Comment on above: Performed By: #### B MP #### [facility] [address] [place] [address] Dr. Ibis Jimenez Neutrophils/100 WBC (Bld) 63.7 % Normal 43.0-75.0 [facility] Comment on above: Performed By: #### B MP #### [facility] [address] [place] [address] Dr. Ibis Jimenez Platelet mean volume (Bld) [Entitic vol] 9.7 fL Normal 9.5-13.5 [facility] Comment on above: Performed By: #### B MP #### [facility] [address] [place] [address] Dr. Ibis Jimenez PLT 237 103/ul Normal 150-450 [facility] Comment on above: Performed By: #### B MP #### [facility] [address] [place] [address] Dr. Ibis Jimenez RBC 4.01 106/ul Critically low 4.20-5.40 [facility] Comment on above: Performed By: #### B MP #### [facility] [address] [place] [address] Dr. Ibis Jimenez WBC 6.3 103/ul Normal 4.0-11.0 [facility] Comment on above: Performed By: #### B MP #### [facility] [address] [place] [address] Dr. Ibis Jimenez LACTATE/LACTIC ACIDon 2021 Lactate [Moles/Vol] 1.2 mmol/L Normal 0.4-1.9 [facility] Comment on above: Performed By: #### A MM #### [facility] [address] [place] [address] Dr. Ibis Jimenez BUNon 10-02-2021 Urea nitrogen [Mass/Vol] 7.0 mg/dL Normal 7.0-18.0 [facility] Comment on above: Performed By: #### C VDTB #### [facility] [address] [place] [address] Dr. Ibis Jimenez CBC AUTO DIFFon 10-02-2021 BASO # 0.0 103/ul Normal 0.0-0.1 [facility] Comment on above: Performed By: #### A MM #### [facility] [address] [place] [address] Dr. Ibis Jimenez Basophils/100 WBC (Bld) 0.2 % Normal 0.2-2.0 [facility] Comment on above: Performed By: #### A MM #### [facility] [address] [place] [address] Dr. Ibis Jimenez EO # 0.0 103/ul Normal 0.0-0.7 [facility] Comment on above: Performed By: #### A MM #### [facility] [address] [place] [address] Dr. Ibis Jimenez Eosinophils/100 WBC (Bld) 0.3 % Critically low 0.9-7.0 [facility] Comment on above: Performed By: #### A MM #### [facility] [address] [place] [address] Dr. Ibis Jimenez Erythrocyte distribution width (RBC) [Ratio] 12.7 % Normal 11.0-15.0 [facility] Comment on above: Performed By: #### A MM #### [facility] [address] [place] [address] Dr. Ibis Jimenez Hematocrit (Bld) [Volume fraction] 43.4 % Normal 36.0-48.0 [facility] Comment on above: Performed By: #### A MM #### [facility] [address] [place] [address] Dr. Ibis Jimenez Hemoglobin (Bld) [Mass/Vol] 14.6 g/dL Normal 12.0-16.0 [facility] Comment on above: Performed By: #### A MM #### [facility] [address] [place] [address] Dr. Ibis Jimenez IG # 0.03 10e3/ul Normal 0.00-0.03 [facility] Comment on above: Performed By: #### A MM #### [facility] [address] [place] [address] Dr. Ibis Jimenez IG % 0.3 % Normal 0.0-0.5 [facility] Comment on above: Performed By: #### A MM #### [facility] [address] [place] [address] Dr. Ibis Jimenez LYMPH # 1.2 103/ul Normal 1.2-3.8 [facility] Comment on above: Performed By: #### A MM #### [facility] [address] [place] [address] Dr. Ibis Jimenez Lymphocytes/100 WBC (Bld) 11.6 % Critically low 20.5-60.0 [facility] Comment on above: Performed By: #### A MM #### [facility] [address] [place] [address] Dr. Ibis Jimenez MANUAL DIFF REQ NO Normal [facility] Comment on above: Performed By: #### A MM #### [facility] [address] [place] [address] Dr. Ibsi Jimenez MCH (RBC) [Entitic mass] 28.5 pg Normal 26.7-34.0 [facility] Comment on above: Performed By: #### A MM #### [facility] [address] [place] [address] Dr. Ibis Jimenez MCHC (RBC) [Mass/Vol] 33.6 g/dL Normal 29.9-35.2 [facility] Comment on above: Performed By: #### A MM #### [facility] [address] [place] [address] Dr. Ibis Jimenez MCV (RBC) [Entitic vol] 84.6 fL Normal 81.0-99.0 [facility] Comment on above: Performed By: #### A MM #### [facility] [address] [place] [address] Dr. Ibis Jimenez MONO # 0.6 103/ul Normal 0.3-0.8 [facility] Comment on above: Performed By: #### A MM #### [facility] [address] [place] [address] Dr. Ibis Jimenez Monocytes/100 WBC (Bld) 5.9 % Normal 1.7-12.0 [facility] Comment on above: Performed By: #### A MM #### [facility] [address] [place] [address] Dr. Ibis Jimenez NEUT # 8.2 103/ul Critically high 1.4-6.5 [facility] Comment on above: Performed By: #### A MM #### [facility] [address] [place] [address] Dr. Ibis Jimenez Neutrophils/100 WBC (Bld) 81.7 % Critically high 43.0-75.0 [facility] Comment on above: Performed By: #### A MM #### [facility] [address] [place] [address] Dr. Ibis Jimenez Platelet mean volume (Bld) [Entitic vol] 9.8 fL Normal 9.5-13.5 [facility] Comment on above: Performed By: #### A MM #### [facility] [address] [place] [address] Dr. Ibis Jimenez PLT 264 103/ul Normal 150-450 [facility] Comment on above: Performed By: #### A MM #### [facility] [address] [place] [address] Dr. Ibis Jimenez RBC 5.13 106/ul Normal 4.20-5.40 [facility] Comment on above: Performed By: #### A MM #### [facility] [address] [place] [address] Dr. Ibis Jimenez WBC 10.1 103/ul Normal 4.0-11.0 [facility] Comment on above: Performed By: #### A MM #### [facility] [address] [place] [address] Dr. Ibis Jimenez CREATININEon 10-02-2021 Creatinine [Mass/Vol] 0.69 mg/dL Normal 0.55-1.02 [facility] Comment on above: Performed By: #### C VDTBH #### [facility] [address] [place] [address] Dr. Ibis Jimenez EGFR-AF UGANDAN >60 Normal >=60 [facility] Comment on above: Performed By: #### C VDTBH #### [facility] [address] [place] [address] Dr. Ibis Jimenez EGFR-NON AF UGANDAN >60 Normal >=60 [facility] Comment on above: Performed By: #### C VDTBH #### [facility] [address] [place] [address] Dr. Ibis Jimenez CBC AUTO DIFFon 10-01-2021 BASO # 0.0 103/ul Normal 0.0-0.1 [facility] Comment on above: Performed By: #### A MM #### [facility] [address] [place] [address] Dr. Ibis Jimenez Basophils/100 WBC (Bld) 0.3 % Normal 0.2-2.0 [facility] Comment on above: Performed By: #### A MM #### [facility] [address] [place] [address] Dr. Ibis Jimenez EO # 0.1 103/ul Normal 0.0-0.7 [facility] Comment on above: Performed By: #### A MM #### [facility] [address] [place] [address] Dr. Ibis Jimenez Eosinophils/100 WBC (Bld) 1.9 % Normal 0.9-7.0 [facility] Comment on above: Performed By: #### A MM #### [facility] [address] [place] [address] Dr. Ibis Jimenez Erythrocyte distribution width (RBC) [Ratio] 12.7 % Normal 11.0-15.0 [facility] Comment on above: Performed By: #### A MM #### [facility] [address] [place] [address] Dr. Ibis Jimenez Hematocrit (Bld) [Volume fraction] 38.1 % Normal 36.0-48.0 [facility] Comment on above: Performed By: #### A MM #### [facility] [address] [place] [address] Dr. Ibis Jimenez Hemoglobin (Bld) [Mass/Vol] 12.7 g/dL Normal 12.0-16.0 [facility] Comment on above: Performed By: #### A MM #### [facility] [address] [place] [address] Dr. Ibis Jimenez IG # 0.02 10e3/ul Normal 0.00-0.03 [facility] Comment on above: Performed By: #### A MM #### [facility] [address] [place] [address] Dr. Ibis Jimenez IG % 0.3 % Normal 0.0-0.5 [facility] [facility] Comment on above: Performed By: #### A MM #### [facility] [address] [place] [address] Dr. Ibis Jimenez LYMPH # 1.9 103/ul Normal 1.2-3.8 [facility] Comment on above: Performed By: #### A MM #### [facility] [address] [place] [address] Dr. Ibis Jimenez Lymphocytes/100 WBC (Bld) 30.5 % Normal 20.5-60.0 [facility] Comment on above: Performed By: #### A MM #### [facility] [address] [place] [address] Dr. Ibis Jimenez MANUAL DIFF REQ NO Normal [facility] Comment on above: Performed By: #### A MM #### [facility] [address] [address] [address] Ibis Jimenez MCH (RBC) [Entitic mass] 28.3 pg Normal 26.7-34.0 [facility] Comment on above: Performed By: #### A MM #### [facility] [address] [place] [address] Dr. Ibis Jimenez MCHC (RBC) [Mass/Vol] 33.3 g/dL Normal 29.9-35.2 [facility] Comment on above: Performed By: #### A MM #### [facility] [address] [place] [address] Dr. Ibis Jimenez MCV (RBC) [Entitic vol] 85.0 fL Normal 81.0-99.0 [facility] Comment on above: Performed By: #### A MM #### [facility] [address] [place] [address] Dr. Ibis Jimenez MONO # 0.3 103/ul Normal 0.3-0.8 [facility] Comment on above: Performed By: #### A MM #### [facility] [address] [place] [address] Dr. Ibis Jimenez Monocytes/100 WBC (Bld) 5.2 % Normal 1.7-12.0 [facility] Comment on above: Performed By: #### A MM #### [facility] [address] [place] [address] Dr. Ibis Jimenez NEUT # 3.9 103/ul Normal 1.4-6.5 [facility] Comment on above: Performed By: #### A MM #### [facility] [address] [place] [address] Dr. Ibis Jimenez Neutrophils/100 WBC (Bld) 61.8 % Normal 43.0-75.0 [facility] Comment on above: Performed By: #### A MM #### [facility] [address] [place] [address] Dr. Ibis Jimenez Platelet mean volume (Bld) [Entitic vol] 9.7 fL Normal 9.5-13.5 [facility] Comment on above: Performed By: #### A MM #### [facility] [address] [address] [address] Ibis Jimenez PLT 255 103/ul Normal 150-450 [facility] Comment on above: Performed By: #### A MM #### [facility] [id number] Ibis Jimenez RBC 4.48 106/ul Normal 4.20-5.40 [facility] Comment on above: Performed By: #### A MM #### [facility] [address] [address] [address] Ibis Jimenez WBC 6.3 103/ul Normal 4.0-11.0 [facility] Comment on above: Performed By: #### A MM #### [facility] [address] [address] [address] Ibis Jimenez PREG HCG QUALon 10-01-2021 , QUAL Negative Normal NEGATIVE [facility] Comment on above: Performed By: #### M DAVID #### [facility] [address] [address] [address] Ibis Jimenez Covid-19 PCR (CVDTB)on 09-20 SARS-CoV-2 (COVID-19) RNA SAURABH+probe Ql (Unsp spec) Not detected Normal NOT DETECTED [facility] Comment on above: Result Comment: This test is not yet approved or cleared by the [place] FDA. When there are no FDA-approved or cleared tests available, and other criteria are met, FDA can make tests available under an emergency access mechanism called an Emergency Use Authorization (EUA). The EUA for this test is supported by the [place] of Health and Human Service's (HHS's) declaration [...] SARS-CoV-2. Performed By: #### B MP #### [facility] [address] [place] [address] Dr. Ibis Jimenez TYPE AND SCREENon 09-29-2021 TYPE AND SCREEN Negative Normal [facility] Comment on above: Performed By: #### B MP #### [facility] [address] [place], [place] [id number] Dr. Ibis Jimenez Covid-19 PCR (CVDTB)on SARS-CoV-2 (COVID-19) RNA SAURABH+probe Ql (Unsp spec) Not detected Normal NOT DETECTED [facility] Comment on above: Result Comment: This test is not yet approved or cleared by the [place] FDA. When there are no FDA-approved or cleared tests available, and other criteria are met, FDA can make tests available under an emergency access mechanism called an Emergency Use Authorization (EUA). The EUA for this test is supported by the [employer] of Health and Human Service's (HHS's) declaration [...] SARS-CoV-2. Performed By: #### C VDTBH #### [facility] [address] [place] [id number] Ibis Jimenez TYPE AND SCREENon 09-21-2021 TYPE AND SCREEN Negative Normal [facility] Comment on above: Performed By: #### B MP #### [facility] [address] [place] [address] [address] [address] Ibis Jimenez CHLAMYDIA/GONOCOCCUS SAURABH (SW AB/URINE/PAPon 06-28-2022 Chlamydia trachomatis, SAURABH Negative Normal Negative [facility] Comment on above: Performed By: #### A CET, SALYC #### [facility] [address] [place] [address] Dr. Ibis Jimenez Neisseria gonorrhoeae, SAURABH Negative Normal Negative [facility] Comment on above: Performed By: #### A CET, SALYC #### [facility] [address] [place] [address] Dr. Ibis Jimenez CBC AUTO DIFFon 08-14-2021 BASO # 0.0 103/ul Normal 0.0-0.1 [facility] Comment on above: Performed By: #### C VDTBH #### [facility] [address] [place] [address] Dr. Ibis Jimenez Basophils/100 WBC (Bld) 0.3 % Normal 0.2-2.0 [facility] Comment on above: Performed By: #### C VDTBH #### [facility] [address] [place] [address] Dr. Ibis Jimenez EO # 0.2 103/ul Normal 0.0-0.7 [facility] Comment on above: Performed By: #### C VDTBH #### [facility] [address] [place] [address] Dr. Ibis Jimenez Eosinophils/100 WBC (Bld) 2.5 % Normal 0.9-7.0 [facility] Comment on above: Performed By: #### C VDTBH #### [facility] [address] [place] [address] Dr. Ibis Jimenez Erythrocyte distribution width (RBC) [Ratio] 13.0 % Normal 11.0-15.0 [facility] Comment on above: Performed By: #### C VDTBH #### [facility] [address] [place] [address] Dr. Ibis Jimenez Hematocrit (Bld) [Volume fraction] 38.1 % Normal 36.0-48.0 [facility] Comment on above: Performed By: #### C VDTBH #### [facility] [address] [place] [address] Dr. Ibis Jimenez Hemoglobin (Bld) [Mass/Vol] 12.8 g/dL Normal 12.0-16.0 [facility] Comment on above: Performed By: #### C VDTBH #### [facility] [address] [place] [address] Dr. Ibis Jimenez IG # 0.02 10e3/ul Normal 0.00-0.03 [facility] Comment on above: Performed By: #### C VDTBH #### [facility] [address] [place] [address] Dr. Ibis Jimenez IG % 0.3 % Normal 0.0-0.5 [facility] Comment on above: Performed By: #### C VDTBH #### [facility] [address] [place] [address] Dr. Ibis Jimenez LYMPH # 1.5 103/ul Normal 1.2-3.8 [facility] Comment on above: Performed By: #### C VDTBH #### [facility] [address] [place] [address] Dr. Ibis Jimenez Lymphocytes/100 WBC (Bld) 22.5 % Normal 20.5-60.0 [facility] Comment on above: Performed By: #### C VDTBH #### [facility] [address] [place] [address] Dr. Ibis Jimenez MANUAL DIFF REQ NO Normal [facility] Comment on above: Performed By: #### C VDTBH #### [facility] [address] [place] [address] Dr. Ibis Jimenez MCH (RBC) [Entitic mass] 28.6 pg Normal 26.7-34.0 [facility] Comment on above: Performed By: #### C VDTBH #### [facility] [address] [place] [address] Dr. Ibis Jimenez MCHC (RBC) [Mass/Vol] 33.6 g/dL Normal 29.9-35.2 [facility] Comment on above: Performed By: #### C VDTBH #### [facility] [address] [place] [address] Dr. Ibis Jimenez MCV (RBC) [Entitic vol] 85.0 fL Normal 81.0-99.0 [facility] Comment on above: Performed By: #### C VDTBH #### [facility] [address] [place] [address] Dr. Ibis Jimenez MONO # 0.4 103/ul Normal 0.3-0.8 [facility] Comment on above: Performed By: #### C VDTBH #### [facility] [address] [place] [address] Dr. Ibis Jimenez Monocytes/100 WBC (Bld) 6.3 % Normal 1.7-12.0 [facility] Comment on above: Performed By: #### C VDTBH #### [facility] [address] [place] [address] Dr. Ibis Jimenez NEUT # 4.6 103/ul Normal 1.4-6.5 [facility] Comment on above: Performed By: #### C VDTBH #### [facility] [address] [place] [address] Dr. Ibis Jimenez Neutrophils/100 WBC (Bld) 68.1 % Normal 43.0-75.0 [facility] Comment on above: Performed By: #### C VDTBH #### [facility] [address] [place] [address] Dr. Ibis Jimenez Platelet mean volume (Bld) [Entitic vol] 9.8 fL Normal 9.5-13.5 [facility] Comment on above: Performed By: #### C VDTBH #### [facility] [address] [place] [address] Dr. Ibis Jimenez PLT 243 103/ul Normal 150-450 [facility] Comment on above: Performed By: #### C VDTBH #### [facility] [address] [place] [address] Dr. Ibis Jimenez RBC 4.48 106/ul Normal 4.20-5.40 [facility] Comment on above: Performed By: #### C VDTBH #### [facility] [address] [place] [address] Dr. Ibis Jimenez WBC 6.7 103/ul Normal 4.0-11.0 [facility] Comment on above: Performed By: #### C VDTB #### [facility] [address] [address] [address] ABD/PELVIS WO CONon [...] NELI COTTO Date: 2021-08-14 18:00 Normal [facility] ER URINE PROFILEon 2 Bilirubin Ql (U) SMALL Abnormal NEGATIVE [facility] Comment on above: Performed By: #### B MP #### [facility] [address] [address] [address] Ibis Jimenez Clarity (U) CLEAR Normal CLEAR [facility] Comment on above: Performed By: #### B MP #### [facility] [address] [place] [address] Dr. Ibis Jimenez Color (U) YELLOW Normal YELLOW [facility] Comment on above: Performed By: #### B MP #### [facility] [address] [place] [address] Dr. Ibis RODRIGUEZ A micrscopic examination will be performed if indicated. Normal [facility] Comment on above: Performed By: #### B MP #### [facility] [address] [place] [address] Dr. Ibis Jimenez Glucose Ql (U) Negative Normal NEGATIVE [facility] Comment on above: Performed By: #### B MP #### [facility] [address] [place] [address] Dr. Ibis Jimenez Hemoglobin Ql (U) SMALL Abnormal NEGATIVE [facility] Comment on above: Performed By: #### B MP #### [facility] [address] [place] [address] Dr. Ibis Jimenez Ketones Ql (U) TRACE Abnormal NEGATIVE [facility] Comment on above: Performed By: #### B MP #### [facility] [address] [place] [address] Dr. Ibis Jimenez LEUKOCYTES Negative Normal NEGATIVE [facility] Comment on above: Performed By: #### B MP #### [facility] [address] [place] [address] Dr. Ibis Jimenez Nitrite Ql (U) Negative Normal NEGATIVE [facility] Comment on above: Performed By: #### B MP #### [facility] [address] [place] [address] Dr. Ibis Jimenez pH (U) 5.5 [pH] Normal 5-9 [facility] Comment on above: Performed By: #### B MP #### [facility] [address] [place] [address] Dr. Ibis Jimenez SPEC GRAVITY >=1.030 Abnormal 1.005-<=1.02 5 [facility] Comment on above: Performed By: #### B MP #### [facility] [address] [place] [address] Dr. Ibis Jimenez UA PROTEIN TRACE Normal NEGATIVE/ TRACE [facility] Comment on above: Performed By: #### B MP #### [facility] [address] [place] [address] Dr. Ibis Jimenez UR MICRO IND INDICATED Normal [facility] Comment on above: Performed By: #### B MP #### [facility] [address] [place] [address] Dr. Ibis Jimenez Urobilinogen Qn (U) 1.0 {Dinorah'U}/dL Normal 0.2 - 1. 0 [facility] Comment on above: Performed By: #### B MP #### [facility] [address] [place] [address] Dr. Ibis Jimenez URon 08-14-2021 , QUAL Negative Normal NEGATIVE [facility] Comment on above: Performed By: #### B MP #### [facility] [address] [place] [address] Dr. Ibis Jimenez PROF CHEM 8 (BAS METB)on Anion gap [Moles/Vol] 15.3 mmol/L Normal [facility] Comment on above: Performed By: #### B MP #### [facility] [address] [place] [address] Dr. Ibis Jimenez Calcium [Mass/Vol] 8.4 mg/dL Critically low 8.5-10.1 [facility] Comment on above: Performed By: #### B MP #### [facility] [address] [place] [address] Dr. Ibis Jimenez Chloride [Moles/Vol] 106 mmol/L Normal 98-107 [facility] Comment on above: Performed By: #### B MP #### [facility] [address] [place] [address] Dr. Ibis Jimenez CO2 [Moles/Vol] 22.3 mmol/L Normal 21.0-32.0 [facility] Comment on above: Performed By: #### B MP #### [facility] [address] [place] [address] Dr. Ibis Jimenez Creatinine [Mass/Vol] 0.75 mg/dL Normal 0.55-1.02 [facility] Comment on above: Performed By: #### B MP #### [facility] [address] [address] [address] Ibis Jimenez EGFR-AF UGANDAN >60 Normal >=60 [facility] Comment on above: Performed By: #### B MP #### [facility] [address] [address] [address] Ibis Jimenez EGFR-NON AF UGANDAN >60 Normal >=60 [facility] Comment on above: Performed By: #### B MP #### [facility] [address] [address] [address] Ibis Jimenez Glucose [Mass/Vol] 107 mg/dL Critically high 74-106 [facility] Comment on above: Performed By: #### B MP #### [facility] [address] [place] [address] Dr. Ibis Jimenez Potassium [Moles/Vol] 3.6 mmol/L Normal 3.5-5.1 [facility] Comment on above: Performed By: #### B MP #### [facility] [address] [address] [address] Ibis Jimenez Sodium [Moles/Vol] 140 mmol/L Normal 136-145 [facility] Comment on above: Performed By: #### B MP #### [facility] [address] [place] [address] Dr. Ibis Jimenez Urea nitrogen [Mass/Vol] 13.0 mg/dL Normal 7.0-18.0 [facility] Comment on above: Performed By: #### B MP #### [facility] [address] [place] [address] Dr. Ibis Jimenez Urea nitrogen/Creatinine [Mass ratio] 17.3 mg/mg Normal [facility] Comment on above: Performed By: #### B MP #### [facility] [address] [address] [address] Ibis Jimenez URINE MICROSCOPIC ONLYon BACTERIA TRACE Abnormal NONE SEEN [facility] Comment on above: Performed By: #### B MP #### [facility] [address] [place] [address] Dr. Ibis Jimenez Bacteria identified Cx Nom (U) NOT INDICATED Normal [facility] Comment on above: Performed By: #### B MP #### [facility] [address] [place] [address] Dr. Ibis Jimenez CAST NONE SEEN Normal NONE SEEN [facility] Comment on above: Performed By: #### B MP #### [facility] [address] [place] [address] Dr. Ibis Jimenez Crystals LM Nom (Urine sed) NONE SEEN Normal NONE SEEN [facility] Comment on above: Performed By: #### B MP #### [facility] [address] [place] [address] Dr. Ibis Jimenez Epithelial cells LM Ql (Urine sed) MANY Abnormal NONE SEEN /RARE [facility] Comment on above: Performed By: #### B MP #### [facility] [address] [place] [address] Dr. Ibis Jimenez MUCOUS SMALL Abnormal NONE SEEN [facility] Comment on above: Performed By: #### B MP #### [facility] [address] [place] [address] Dr. Ibis Jimenez RBC 2-5 Abnormal 0-2 [facility] Comment on above: Performed By: #### B MP #### [facility] [address] [place] [address] Dr. Ibis Jimenez WBC 2-5 Abnormal NONE SEEN [facility] Comment on above: Performed By: #### B MP #### [facility] [address] [place] [address] Dr. Ibis Jimenez CBC Auto DifferentialOrdered By: Vielka Ching on 12-24-2020 [employer] Eos # 0.44 [facility] Work Phone: Absolute Immature Granulocyte 0.05 [facility] Work Phone: Absolute Lymph # 2.48 [facility] Work Phone: [facility] [place] # 0.55 [facility] Work Phone: Basophils (Bld) [#/Vol] 10*3/uL M [employer] Phone: Basophils/100 WBC (Bld) 0 % 0 - 2 % [facility] Phone: Differential Type NOT REPORTED [employer] Phone: Eosinophils/100 WBC (Bld) 5 % High 1 - 4 % [employer] Phone: Hematocrit (Bld) [Volume fraction] 37.4 % 36.3 - 47.1 % [employer] Phone: Hemoglobin.gastrointest inal spec 1 Ql (Stl) 12.3 g/dL 11.9 - 15.1 g/dL [employer] Phone: Immature granulocytes/100 WBC (Bld) 1 % High 0 [employer] Phone: Interpretation and review of laboratory results Abnormal [employer] Phone: Lymphocytes/100 WBC (Bld) 30 % 24 - 43 % [employer] Phone: MCH (RBC) [Entitic mass] 28.5 pg 25.2 - 33.5 pg [employer] Phone: MCHC (RBC) [Mass/Vol] 32.9 g/dL 28.4 - 34.8 g/dL [employer] Phone: MCV (RBC) [Entitic vol] 86.8 fL 82.6 - 102.9 fL [employer] Phone: Monocytes/100 WBC (Bld) 7 % 3 - 12 % [facility] [employer] Phone: NRBC Automated 0.0 0.0 per 100 WBC [employer] Phone: Platelet distribution width (Bld) [Ratio] 12.7 % 11.8 - 14.4 % [employer] Phone: Platelet Estimate NOT REPORTED [employer] Phone: Platelet mean volume (Bld) [Entitic vol] 9.4 fL 8.1 - 13.5 fL [employer] Phone: Platelets (Bld) [#/Vol] 252 10*3/uL [employer] Phone: RBC (Bld) [#/Vol] 4.31 10*6/uL 3.95 - 5.1 1 m/uL [employer] Work Phone: RBC (Bld) [#/Vol] NOT REPORTED [employer] Phone: Segmented neutrophils/100 WBC (Bld) 57 % 36 - 65 % [employer] Phone: Segs [facility] 4.78 [facility]: WBC (Bld) [#/Vol] 8.3 10*3/uL [employer] Phone: WBC (Bld) [#/Vol] NOT REPORTED [employer] Phone: [employer] Phone: CBC with Diffon 12-24-2020 Abs. Basophil <0.03 Normal 0.00-0.20 [facility] Comment on above: Performed By: #### C MPX, CDP #### [address] [place] [address] [employer]: Souleymane Pineda MD Abs.Imm.Granulocyte 0.05 k/uL Normal 0.00-0.30 [facility] Comment on above: Performed By: #### C MPX, CDP #### [address] [place] [address] [employer]: Souleymane Pineda MD Abs.Neutrophil (Seg) 4.78 k/uL Normal 1.50-8.10 [facility] Comment on above: Performed By: #### C MPX, CDP #### [facility] [address] [place] [address] [employer]: Souleymane Pineda MD Basophils/100 WBC (Bld) 0 % Normal 0-2 M [facility] Comment on above: Performed By: #### C MPX, CDP #### [address] [place] [address] [employer]: Souleymane Pineda MD Eosinophils (Bld) [#/Vol] 0.44 10*3/uL Normal 0.00-0.44 [facility] Comment on above: Performed By: #### C MPX, CDP #### [address] [place], [place] [id number] [employer]: Souleymane Pineda MD Eosinophils/100 WBC (Bld) 5 % High 1-4 [facility] Comment on above: Performed By: #### C MPX, CDP #### [address] [place], [place] [id number] [employer]: Souleymane Pineda MD Erythrocyte distribution width (RBC) [Ratio] 12.7 % Normal 11.8-14.4 [facility] Comment on above: Performed By: #### C MPX, CDP #### [address] [place], [place] [id number] [employer]: Souleymane Pineda MD Hematocrit (Bld) [Volume fraction] 37.4 % Normal 36.3-47.1 [facility] Comment on above: Performed By: #### C MPX, CDP #### [address] [place] [address] [employer]: Souleymane Pineda MD Hemoglobin (Bld) [Mass/Vol] 12.3 g/dL Normal 11.9-15.1 [facility] Comment on above: Performed By: #### C MPX, CDP #### [address] [place] [address] [employer]: Souleymane Pineda MD Immature granulocytes/100 WBC (Bld) 1 % High 0 [facility] Comment on above: Performed By: #### C MPX, CDP #### [facility] [address] [place] [address] [employer]: Souleymane Pineda MD Lymphocytes (Bld) [#/Vol] 2.48 10*3/uL Normal 1.10-3.70 [facility] Comment on above: Performed By: #### C MPX, CDP #### [facility] [address] [place] [address] [employer]: Souleymane Pineda MD Lymphocytes/100 WBC (Bld) 30 % Normal 24-43 [facility] Comment on above: Performed By: #### C MPX, CDP #### [address] [place], [facility] [employer]: Souleymane Pineda MD MCH (RBC) [Entitic mass] 28.5 pg Normal 25.2-33.5 [facility] Comment on above: Performed By: #### C MPX, CDP #### [address] [place] [address] [employer]: Souleymane Pineda MD MCHC (RBC) [Mass/Vol] 32.9 g/dL Normal 28.4-34.8 [facility] Comment on above: Performed By: #### C MPX, CDP #### [facility] [address] [place] [address] [place] [address] [employer]: Souleymane Pineda MD MCV (RBC) [Entitic vol] 86.8 fL Normal 82.6-102.9 M [facility] Comment on above: Performed By: #### C MPX, CDP #### [facility] [address] [place] [address] [employer]: Souleymane Pineda MD Monocytes (Bld) [#/Vol] 0.55 10*3/uL Normal 0.10-1.20 [facility] Comment on above: Performed By: #### C MPX, CDP #### [facility] [address] [place] [address] [employer]: Souleymane Pineda MD Monocytes/100 WBC (Bld) 7 % Normal 3-12 M [facility] Comment on above: Performed By: #### C MPX, CDP #### [facility] [address] [place], [place] [id number] [employer]: Souleymane Pineda MD Neutrophil (Seg) 57 % Normal 36-65 [facility] Comment on above: Performed By: #### C MPX, CDP #### [facility] [address] [place], [place] [id number] [employer]: Souleymane Pineda MD NRBC Automated 0.0 per 100 WBC Normal 0.0 [facility] Comment on above: Performed By: #### C MPX, CDP #### [facility] [address] [place], [place] [id number] [employer]: Souleymane Pineda MD Platelet mean volume (Bld) [Entitic vol] 9.4 fL Normal 8.1-13.5 [facility] Comment on above: Performed By: #### C MPX, CDP #### [facility] [address] [place], [place] [id number] [employer]: Souleymane Pineda MD Platelets (Bld) [#/Vol] 252 10*3/uL Normal 138-453 [facility] Comment on above: Performed By: #### C MPX, CDP #### [facility] [address] [place] [address] [employer]: Souleymane Pineda MD RBC (Bld) [#/Vol] 4.31 10*6/uL Normal 3.95-5.11 [facility] Comment on above: Performed By: #### C MPX, CDP #### [facility] [address] [place], [place] [id number] [employer]: Souleymane Pineda MD WBC (Bld) [#/Vol] 8.3 10*3/uL Normal 3.5-11.3 [facility] Comment on above: Performed By: #### C MPX, CDP #### [facility] [address] [place], [place] [id number] [employer]: Souleymane Pineda MD Auto Diff Performed NOT REPORTED Normal [facility] Comment on above: Performed By: #### C MPX, CDP #### [address] [place], [place] [id number] Flatwork Washer: Souleymane Pineda MD Platelet Comment NOT REPORTED Normal [facility] Comment on above: Performed By: #### C MPX, CDP #### [facility] [address] [place] [address] [place] [address] Flatwork Washer: Souleymane Pineda MD RBC morphology finding Nom (Bld) NOT REPORTED Normal [facility] Comment on above: Performed By: #### C MPX, CDP #### [address] [place], [place] [id number] Flatwork Washer: Souleymane Pineda MD WBC Morphology NOT REPORTED Normal [facility] Comment on above: Performed By: #### C MPX, CDP #### [address] [place], [place] [id number] Flatwork Washer: Souleymane Pineda MD CT HEAD WO CONTRASTon [...] the orbits demonstrate no acute abnormality. SINUSES: Aplv-dx-lroyszqc paranasal sinus mucosal thickening. SOFT TISSUES/SKULL: No acute abnormality of the visualized skull or soft tissues. IMPRESSION: No acute intracranial abnormality. Interpreted by: Edwin Bentley MD Signed by: Edwin Bentley MD 12/24/20 Final result Normal [facility] CT Head WO ContrastOrdered B y: Vielka Ching on 12-24-2020 No acute intracranial abnormality. [employer] Phone: EXAMINATION: CT OF THE HEAD WITHOUT [...] the orbits demonstrate no acute abnormality. SINUSES: Gefc-og-zxithqvk paranasal sinus mucosal thickening. SOFT TISSUES/SKULL: No acute abnormality of the visualized skull or soft tissues. [employer]helter Phone: Dimitri, [facility] Incoming Radiant Results From [place] - 12/24/2020 8:49 PM EDT EXAMINATION: CT [...] the orbits demonstrate no acute abnormality. SINUSES: Jmpm-wz-jqyrnklu paranasal sinus mucosal thickening. SOFT TISSUES/SKULL: No acute abnormality of the visualized skull or soft tissues. IMPRESSION: No acute intracranial abnormality. [facility] Work Phone: [facility] Work Phone: Comp Metabolic Pr/rfx MGon 1 02-24-2020 Bilirubin [Mass/Vol] mg/dL Low 0.3-1.2 [facility] Comment on above: Performed By: #### C MPX, CDP #### [facility] [address] [place] [address] Flatwork Washer: Souleymane Pineda MD (cont.) Normal [facility] Comment on above: Result Comment: Aver age GFR for 20-29 years old: 116 mL/min/1.73sq m Chronic Kidney Disease: <60 mL/min/1.73sq m Kidney failure: <15 mL/min/1.73sq m eGFR calculated using average adult body mass. Additional eGFR calculator available at: http://www.[employer].com/multiple_crcl_2012.htm Performed By: #### C MPX, CDP #### [facility] [address] [place] [address] Flatwork Washer: Souleymane Pineda MD Albumin [Mass/Vol] 4.0 g/dL Normal 3.5-5.2 [facility] Comment on above: Performed By: #### C MPX, CDP #### [facility] [address] [place], [place] [id number] Flatwork Washer: Souleymane Pineda MD Albumin/Glob Ratio 1.5 Normal 1.0-2.5 [facility] Comment on above: Performed By: #### C MPX, CDP #### [facility] [address] [place], [place] [id number] Flatwork Washer: Souleymane Pineda MD Alkaline Phos 90 U/L Normal 35-104 [facility] Comment on above: Performed By: #### C MPX, CDP #### [facility] [address] [place], [place] [id number] Flatwork Washer: Souleymane iPneda MD ALT [Catalytic activity/Vol] 40 U/L High 5-33 [facility] Comment on above: Performed By: #### C MPX, CDP #### [facility] [address] [place], [place] [id number] Flatwork Washer: Souleymane Pineda MD Anion gap [Moles/Vol] 11 mmol/L Normal 9-17 [facility] Comment on above: Performed By: #### C MPX, CDP #### [facility] [address] [place], [place] [id number] Flatwork Washer: Souleymane Pineda MD AST [Catalytic activity/Vol] 19 U/L Normal <32 [facility] Comment on above: Performed By: #### C MPX, CDP #### [facility] [address] [place], [place] [id number] Flatwork Washer: Souleymane Pineda MD BUN/CRE Ratio 15 Normal 9-20 [facility] Comment on above: Performed By: #### C MPX, CDP #### [facility] [address] [place], [place] [id number] Flatwork Washer: Souleymane Pineda MD Calcium [Mass/Vol] 8.9 mg/dL Normal 8.6-10.4 [facility] Comment on above: Performed By: #### C MPX, CDP #### [facility] [address] [place], [place] [id number] Flatwork Washer: Souleymane Pineda MD Chloride [Moles/Vol] 104 mmol/L Normal 98-107 [facility] Comment on above: Performed By: #### C MPX, CDP #### [facility] [address] [place], [place] [id number] Flatwork Washer: Souleymane Pineda MD CO2 [Moles/Vol] 24 mmol/L Normal 20-31 [facility] Comment on above: Performed By: #### C MPX, CDP #### [facility] [address] [place], [place] [id number] Flatwork Washer: Souleymane Pineda MD Creatinine [Mass/Vol] 0.60 mg/dL Normal 0.50-0.90 [facility] Comment on above: Performed By: #### C MPX, CDP #### [facility] [address] [place], [place] [id number] Flatwork Washer: Souleymane Pineda MD GFR, Amer >60 Normal >60 [facility] Comment on above: Performed By: #### C MPX, CDP #### [facility] [address] [place], [place] [phone] Flatwork Washer: Souleymane Pineda MD GFR,non Amer >60 Normal >60 [facility] Comment on above: Performed By: #### C MPX, CDP #### [facility] [address] [place], [place] [id number] Flatwork Washer: Souleymane Pineda MD Glucose [Mass/Vol] 91 mg/dL Normal 70-99 [facility] Comment on above: Performed By: #### C MPX, CDP #### [facility] [address] [place] [address] Flatwork Washer: Souleymane Pineda MD Potassium [Moles/Vol] 4.0 mmol/L Normal 3.7-5.3 [facility] Comment on above: Performed By: #### C MPX, CDP #### [facility] [address] [place] [address] [place] [address] Flatwork Washer: Souleymane Pineda MD Protein [Mass/Vol] 6.7 g/dL Normal 6.4-8.3 [facility] Comment on above: Performed By: #### C MPX, CDP #### [facility] [address] [place] [address] [place] [address] Flatwork Washer: Souleymane Pineda MD Sodium [Moles/Vol] 139 mmol/L Normal 135-144 [facility] Comment on above: Performed By: #### C MPX, CDP #### [address] [place] [address] Flatwork Washer: Souleymane Pineda MD Staging: Normal [facility] Comment on above: Result Comment: Stag e 1: Some kidney damage normal GFR Stage 2: Mild kidney damage GFR 60-89 Stage 3: Moderate kidney damage GFR 30-59 Stage 4: Severe kidney damage GFR 15-29 Stage 5: Severe kidney damage GFR <15 ESRD - chronic treatment by dialysis or transplant Performed By: #### C MPX, CDP #### [address] [place] [address] Flatwork Washer: Souleymane Pineda MD Urea nitrogen [Mass/Vol] 9 mg/dL Normal 6-20 [facility] Comment on above: Performed By: #### C MPX, CDP #### [facility] [address] [place] [address] [place] [address] Flatwork Washer: Souleymane Pineda MD Comprehensive Metabolic Pane l w/ Reflex to MGOrdered By: Vielka Ching on 12-24-2020 Albumin [Mass/Vol] 4 g/dL 3.5 - 5.2 g/dL [facility] Work Phone: Albumin/Globulin [Mass ratio] 1.5 {ratio} [employer] Phone: ALP (Bld) [Catalytic activity/Vol] 90 U/L 35 - 104 U/L [employer] Phone: ALT [Catalytic activity/Vol] 40 U/L High 5 - 33 U/L [employer] Phone: Anion gap [Moles/Vol] 11 mmol/L 9 - 17 mmol/L [employer] Phone: AST [Catalytic activity/Vol] 19 U/L <32 [employer] Phone: Bilirubin [Mass/Vol] mg/dL Low 0.3 - 1 .2 mg/dL [employer] Phone: Calcium [Mass/Vol] 8.9 mg/dL 8.6 - 10. 4 mg/dL [employer] Phone: Chloride [Moles/Vol] 104 mmol/L 98 - 10 7 mmol/L [employer] Phone: CO2 [Moles/Vol] 24 mmol/L 20 - 31 mmol/L [employer] Phone: Creatinine [Mass/Vol] 0.6 mg/dL 0.50 - 0.90 mg/dL [employer] Phone: Free PSA/Total PSA [Mass fraction] 6.7 g/dL 6.4 - 8.3 g/dL [employer] Phone: GFR >60 >60 mL/min [employer] Phone: GFR Non- >60 >60 mL/min [employer] Phone: Glucose [Mass/Vol] 91 mg/dL 70 - 99 mg/dL [employer] Phone: Interpretation and review of laboratory results Abnormal [employer] Phone: Potassium [Moles/Vol] 4.0 mmol/L 3.7 - 5.3 mmol/L [employer] Phone: Sodium [Moles/Vol] 139 mmol/L 135 - 144 mmol/L [employer] Phone: Urea nitrogen (BldV) [Mass/Vol] 9 mg/dL 6 - 20 mg/dL [employer] Phone: Urea nitrogen/Creatinine (Bld) [Mass ratio] 15 [employer] Phone: [employer]ter Phone: Laboratory - Chemistry and C hemistry - challengeOrdered By: Vielka Ching on 12-24-2020 GFR/1.73 sq M.predicted MDRD (S/P/Bld) [Vol rate/Area] [employer]ter Phone: Comment on above: Average GFR for 20-2 9 years old: 116 mL/min/1.73sq m Chronic Kidney Disease: <60 mL/min/1.73sq m Kidney failure: <15 mL/min/1.73sq m eGFR calculated using average adult body mass. Additional eGFR calculator available at: http://www.[employer]/multiple_crcl_2011.htm Stage 1: Some kidney damage normal GFR Stage 2: Mild kidney damage GFR 60-89 Stage 3: Moderate kidney damage GFR 30-59 Stage 4: Severe kidney damage GFR 15-29 Stage 5: Severe kidney damage GFR <15 ESRD - chronic treatment by dialysis or transplant Vital Signs Date Time Vital Sign Value Performing Clinician Anup mccray 10-13-2023 13:51-0400 Diastolic blood pressure 74 mm[Hg] Infusion 8 Work Phone: [facility] 10-13-2023 13:51-0400 Heart rate 77 /min Infusion 8 Work Phone: [facility] 10-13-2023 13:51-0400 Systolic blood pressure 134 mm[Hg] Infusion 8 Work Phone: [facility] 09-19-2023 14:22-0400 Body height 158.4 cm Koli Green RADIO MAINTAINER.SERVICE PARTS COORDINATOR Work Phone: [facility] 09-19-2023 14:22-0400 Body mass index (BMI) [Ratio] 47.33 kg/m2 Koli Green RADIO MAINTAINER.SERVICE PARTS COORDINATOR Work Phone: [facility] 09-19-2023 14:22-0400 Body temperature 99.1 [degF] Koli Green RADIO MAINTAINER.SERVICE PARTS COORDINATOR Work Phone: [facility] 09-19-2023 14:22-0400 Body weight 118.75 kg Koli Green RADIO MAINTAINER.SERVICE PARTS COORDINATOR Work Phone: [facility] 09-19-2023 14:22-0400 Diastolic blood pressure 81 mm[Hg] Koli Green RADIO MAINTAINER.SERVICE PARTS COORDINATOR Work Phone: [facility] 09-19-2023 14:22-0400 Heart rate 80 /min Koli Green RADIO MAINTAINER.SERVICE PARTS COORDINATOR Work Phone: [facility] 09-19-2023 14:22-0400 Systolic blood pressure 115 mm[Hg] Koli Green RADIO MAINTAINER.SERVICE PARTS COORDINATOR Work Phone: [facility] 08-18-2023 09:26-0400 Diastolic blood pressure 51 mm[Hg] Curtis Lepe PA-C Work Phone: [facility] 08-18-2023 09:26-0400 Heart rate 88 /min Curtis Lepe PA-C Work Phone: [facility] 08-18-2023 09:26-0400 SaO2% (BldA) [Mass fraction] 97 % Curtis Lepe PA-C Work Phone: [facility] 08-18-2023 09:26-0400 Systolic blood pressure 116 mm[Hg] Curtis Lepe PA-C Work Phone: [facility] 04-14-2023 11:08-0500 Diastolic blood pressure 62 mm[Hg] Infusion 7 Work Phone: [facility] 04-14-2023 11:08-0500 Heart rate 84 /min Infusion 7 Work Phone: [facility] 04-14-2023 11:08-0500 Systolic blood pressure 109 mm[Hg] Infusion 7 Work Phone: [facility] 04-13-2023 10:50-0500 Diastolic blood pressure 63 mm[Hg] Infusion 7 Work Phone: [facility] 04-13-2023 10:50-0500 Heart rate 86 /min Infusion 7 Work Phone: [facility] 04-13-2023 10:50-0500 Systolic blood pressure 127 mm[Hg] Infusion 7 Work Phone: [facility] 04-12-2023 13:45-0500 Diastolic blood pressure 58 mm[Hg] Infusion 7 Work Phone: [facility] 04-12-2023 13:45-0500 Heart rate 79 /min Infusion 7 Work Phone: [facility] 04-12-2023 13:45-0500 Systolic blood pressure 120 mm[Hg] Infusion 7 Work Phone: [facility] 11-11-2022 10:55-0400 Diastolic blood pressure 63 mm[Hg] Infusion 8 Work Phone: [facility] 11-11-2022 10:55-0400 Heart rate 83 /min Infusion 8 Work Phone: [facility] 11-11-2022 10:55-0400 Systolic blood pressure 110 mm[Hg] Infusion 8 Work Phone: [facility] 07-28-2022 10:15-0400 Diastolic blood pressure 50 mm[Hg] Infusion 8 Work Phone: [facility] 07-28-2022 10:15-0400 Heart rate 80 /min Infusion 8 Work Phone: [facility] 07-28-2022 10:15-0400 Systolic blood pressure 105 mm[Hg] Infusion 8 Work Phone: [facility] 12-03-2021 09:47-0400 Diastolic blood pressure 81 mm[Hg] Jesse Borrego MD Work Phone: [facility] 12-03-2021 09:47-0400 Heart rate 66 /min Jesse Borrego MD Work Phone: [facility] 12-03-2021 09:47-0400 SaO2% (BldA) [Mass fraction] 100 % Jesse Borrego MD Work Phone: [facility] 12-03-2021 09:47-0400 Systolic blood pressure 131 mm[Hg] Jesse Borrego MD Work Phone: [facility] 10-20-2021 12:00-0400 Diastolic blood pressure 101 mm[Hg] Lucila Mota MD Work Phone: [facility] [employer] 10-20-2021 12:00-0400 Heart rate 85 /min Lucila Mota MD Work Phone: [facility] [employer] 10-20-2021 12:00-0400 Respiratory rate 12 /min Lucila Mota MD Work Phone: [facility] [employer] 10-20-2021 12:00-0400 SaO2% (BldA) [Mass fraction] 98 % Lucila Mota MD Work Phone: [facility] [employer] 10-20-2021 12:00-0400 Systolic blood pressure 136 mm[Hg] Lucila Mota MD Work Phone: [facility] [employer] 10-20-2021 08:00-0400 Body temperature 98.2 [degF] Lucila Mota MD Work Phone: [facility] [employer] 12-24-2020 19:36-0400 Body temperature 99 [degF] Vielka Ching DO Work Phone: [employer] Work Phone: 12-24-2020 19:36-0400 Diastolic blood pressure 80 mm[Hg] Vielka Ching DO Work Phone: [employer] Work Phone: 12-24-2020 19:36-0400 Heart rate 108 /min Vielka Ching DO Work Phone: [employer] Work Phone: 12-24-2020 19:36-0400 Respiratory rate 20 /min Vielka Ching DO Work Phone: [employer] Work Phone: 12-24-2020 19:36-0400 SaO2% (BldA) [Mass fraction] 96 % Vielka Ching DO Work Phone: [employer] Work Phone: 12-24-2020 19:36-0400 Systolic blood pressure 136 mm[Hg] Vielka Ching DO Work Phone: [employer] Work Phone: Encounters Encounter Date Encounter Type Care Provider Facility Start: 11-15-2023 End: 11-15-2023 ambulatory SPENSER SHAY Not Available Start: 11-10-2023 End: 11-10-2023 Refill Curtis Lepe PA-C Work Phone: Neurology Comment on above: Refill Request Start: 10-13-2023 End: 10-13-2023 ambulatory Infusion Main Chair 8 Work Phone: Neurology Comment on above: 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 without status migrainosus (Primary Dx) Start: 10-10-2023 End: 10-10-2023 ambulatory SPENSER SHAY Not Available Start: 09-25-2023 End: 09-25-2023 ambulatory ZAY BLAS Not Available Start: 09-19-2023 End: 09-19-2023 ambulatory LOGAN BARTH Facility:[facility] Start: 09-19-2023 End: 09-19-2023 Patient encounter procedure Logan Barth RADIO MAINTAINER.SERVICE PARTS COORDINATOR Work Phone: Neurology [facility] Comment on above: 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 without status migrainosus (Primary Dx) Start: 08-21-2023 End: 08-21-2023 ambulatory SHAIKH KAVITA Not Available Start: 08-18-2023 End: 08-18-2023 ambulatory CURTIS LEPE Facility:[facility] Start: 08-18-2023 End: 08-18-2023 Patient encounter procedure Curtis Lepe PA-C Work Phone: Neurology Comment on above: 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 without status migrainosus (Primary Dx); Psychogenic nonepileptic seizure Start: 08-16-2023 ambulatory Logan Barth APR N.SERVICE PARTS COORDINATOR Work Phone: Neurology [facility] Start: 08-16-2023 Subsequent hospital visit by physician Logan Barth APRN.SERVICE PARTS COORDINATOR Work Phone: Neurology [facility] Comment on above: Hospital visit Start: 08-08-2023 ambulatory Logan Barth APR N.SERVICE PARTS COORDINATOR Work Phone: Neurology [facility] Comment on above: Injection Start: 07-10-2023 End: 07-10-2023 ambulatory Logan Barth RADIO MAINTAINER.SERVICE PARTS COORDINATOR Work Phone: Neurology [facility] Comment on above: 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 without status migrainosus (Primary Dx) Start: 07-10-2023 End: 07-10-2023 Telemedicine consultation with patient Cameronnisha Tab BREWSTERSERVICE PARTS COORDINATOR Work Phone: Neurology [facility] Start: 06-26-2023 ambulatory Ольга meléndez RADIO MAINTAINERMarisolSERVICE PARTS COORDINATOR Work Phone: Neurology Comment on above: Concern Headache Start: 06-19-2023 End: 06-19-2023 ambulatory ZAY LEONARDO Not Available Start: 04-14-2023 End: 04-14-2023 ambulatory Infusion Main Chair 7 Work Phone: Neurology Comment on above: Chronic migraine wit hout aura, with intractable migraine, so stated, with status migrainosus (Primary Dx); 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 with status migrainosus Start: 04-14-2023 End: 04-14-2023 Patient encounter procedure Suzan Driver RADIO MAINTAINER.SERVICE PARTS COORDINATOR Work Phone: Neurology Comment on above: 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 with status migrainosus (Primary Dx); 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 without status migrainosus Start: 04-13-2023 Telephone encounter Logan Barth APRN.SERVICE PARTS COORDINATOR Work Phone: Neurology Comment on above: Appointment (Patient currently receiving infusions for headache. She is interested in learning about reboot program. Please schedule patient for evaluation if appropriate to proceed.) Start: 04-13-2023 End: 04-13-2023 ambulatory Infusion Main Chair 7 Work Phone: Neurology Comment on above: Chronic migraine wit hout aura, with intractable migraine, so stated, with status migrainosus (Primary Dx); 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 with status migrainosus Start: 04-12-2023 End: 04-12-2023 ambulatory SUZAN DRIVER Facility:[facility] Start: 04-12-2023 End: 04-12-2023 Patient encounter procedure Suzan Driver APRN.SERVICE PARTS COORDINATOR Work Phone: Neurology Comment on above: Intractable [...] Telephone encounter Angely rousseau RN Work Phone: [facility] Comment on above: Insurance Authorizat ion (Aimovig 70MG/ML auto-injectors/) Start: 03-23-2023 End: 03-23-2023 ambulatory LOGAN BARTH Facility:[facility] Start: 03-22-2023 End: 03-22-2023 ambulatory SUZAN DRIVER Facility:[facility] Start: 03-21-2023 End: 03-21-2023 ambulatory SPENSER SHAY Not Available Start: 03-20-2023 End: 03-20-2023 ambulatory ZAY LEONARDO Not Available Start: 03-07-2023 End: 03-07-2023 ambulatory ZAY LEONARDO Not Available Start: 02-07-2023 End: 02-07-2023 ambulatory ZAY LEONARDO Not Available Start: 01-26-2023 End: 01-26-2023 ambulatory ZAY LEONARDO Not Available Start: 12-13-2022 Refill Logan Barth APR N.SERVICE PARTS COORDINATOR Work Phone: Neurology [facility] Comment on above: Refill Request Infusion (HEADACHE I NFUSIONS) Start: 12-12-2022 End: 12-12-2022 ambulatory LOGAN BARTH Facility:[facility] Start: 12-09-2022 Refill Ольга Lantigua Brendan meléndez RADIO MAINTAINER.SERVICE PARTS COORDINATOR Work Phone: Neurology Comment on above: Refill Request Start: 11-11-2022 End: 11-11-2022 ambulatory Infusion Main Chair 8 Work Phone: Neurology Comment on above: 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 with status migrainosus (Primary Dx) Start: 11-10-2022 End: 11-10-2022 ambulatory Ольга Aguilar RADIO MAINTAINER.SERVICE PARTS COORDINATOR Work Phone: Neurology Comment on above: 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 with status migrainosus (Primary Dx) Nerve block Start: 11-10-2022 Telephone encounter Suzan dinero APRN.SERVICE PARTS COORDINATOR Work Phone: Neurology Comment on above: Infusion Start: 11-10-2022 End: 11-10-2022 Telemedicine consultation with patient Ольга Lantigua Harika RADIO MAINTAINERMarisolSERVICE PARTS COORDINATOR Work Phone: [facility] Start: 10-12-2022 ambulatory Suzan boyle RADIO MAINTAINERMarisolSERVICE PARTS COORDINATOR Work Phone: Neurology Comment on above: Botox Start: 10-12-2022 E-mail encounter fro m caregiver Suzan Driver APRN.SERVICE PARTS COORDINATOR Work Phone: [facility] Start: 09-29-2022 Telephone encounter Agnely rousseau RN Work Phone: [facility] Comment on above: Insurance Authorizat ion (Zomig 5MG nasal spray/) Start: 09-27-2022 ambulatory Logan Barth APR N.SERVICE PARTS COORDINATOR Work Phone: [facility] Comment on above: My apt Monday Start: 09-16-2022 ambulatory Logan Barth APR N.SERVICE PARTS COORDINATOR Work Phone: [facility] Start: 09-16-2022 Patient encounter procedure Logan Barth APRN.SERVICE PARTS COORDINATOR Work Phone: [facility] Comment on above: Appointment Start: 08-31-2022 End: 08-31-2022 ambulatory Logan Barth RADIO MAINTAINER.SERVICE PARTS COORDINATOR Work Phone: Neurology Comment on above: Chronic migraine w/o aura, not intractable, w/o stat migr (Primary Dx) Start: 08-31-2022 End: 08-31-2022 Telemedicine consultation with patient Logan Barth APRN.SERVICE PARTS COORDINATOR Work Phone: [facility] Start: 08-09-2022 ambulatory Logan Barth APR N.SERVICE PARTS COORDINATOR Work Phone: [facility] Comment on above: Pain Start: 08-08-2022 End: 08-08-2022 ambulatory Jesse Borrego MD Work Phone: Neurology Comment on above: 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 with status migrainosus (Primary Dx) Start: 08-08-2022 End: 08-08-2022 Telemedicine consultation with patient Jesse Borrego MD Work Phone: [facility] Start: 08-07-2022 ambulatory Jesse rick MD Work Phone: Neurology Comment on above: Name of medication Start: 07-28-2022 End: 07-28-2022 ambulatory Infusion Main Chair 8 Work Phone: Neurology Comment on above: 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 with status migrainosus (Primary Dx) Start: 07-21-[address] ZAY BLAS . Facili ty:[facility] Start: 07-14-2022 Encounter for other preprocedural examination DR ZAY BLAS . [facility] Start: 07-12-2022 End: 07-13-[address] ZAY BLAS . Facility:[facility] Start: 07-12-2022 End: 07-13-2022 Encounter for other preprocedural examination DR ZAY BLAS . Facility:[facility] Start: 07-05-2022 ambulatory KRISTOFER BURCIAGA [facility] Start: 06-27-2022 Telephone encounter Logan Tab [employer] Work Phone: Neurology Comment on above: Appointment [...] with patient Nelly Saldaña KRISTOFER Work Phone: [facility] Start: 11-09-2021 ambulatory Tyrone Dolan MD, PhD Work Phone: [facility] Start: 11-09-2021 Patient encounter procedure Tyrone Dolan MD, PhD Work Phone: Neurology Comment on above: Request Georgianaido appoin tment Start: 11-08-2021 ambulatory Tyrone Dolan MD, PhD Work Phone: [facility] Start: 11-08-2021 Patient encounter procedure Tyrone Dolan MD, PhD Work Phone: Neurology Comment on above: Appointment Start: 11-08-2021 Telephone encounter Tyrone Dolan MD, PhD Work Phone: Neurology Comment on above: Orders Start: 11-04-2021 End: 11-04-2021 ambulatory [place]ER [place] Facility: Start: 10-29-2021 End: 10-29-2021 ambulatory Tyrone Dolan MD, PhD Work Phone: Neurology Comment on above: Psychogenic nonepile ptic seizure (Primary Dx); Spells of trembling; Chronic intractable headache, unspecified headache type Start: 10-29-2021 End: 10-29-2021 Telemedicine consultation with patient Tyrone Dolan MD, PhD Work Phone: [facility] Start: 10-26-2021 Patient encounter procedure Román Storey MD Work Phone: Neurology Comment on above: Seizure-like activit y (HCC) (Primary Dx) Start: 10-19-2021 End: 10-20-2021 Evaluation and management of inpatient [facility] Start: 10-19-2021 End: 10-20-2021 Evaluation and management of inpatient Lucila Mota MD Work Phone: [id number] Neuro ICU Start: 10-19-2021 End: 10-19-2021 ambulatory SHAIKH Joseph BARTLETTKishan Facility:H1 Start: 10-07-2021 End: 10-07-[address] ZAY BLAS . Facility:H1 Start: 10-06-2021 End: 10-06-2021 ambulatory SUKHDEEP Kishan MAURERMINOO Facility:H1 Start: 10-03-2021 End: 10-04-2021 ambulatory MANJINDER SAY Facility:H1 Start: 10-01-2021 End: 10-02-2021 Evaluation and management of inpatient DR ANGÉLICA ARTHUR Facility:H1 Start: 10-01-2021 Encounter for preprocedural laboratory examination DR ZAY BLAS . [facility] Start: 09-29-2021 End: 09-30-[address] [...] department patient visit ANGÉLICA ARTHUR [facility] Start: 12-24-2020 End: 12-24-2020 Emergency department patient visit Vielka Ching DO Work Phone: [facility] ED Comment on above: Migraine without sta [...] Start: 10-20-2021 EEG VIDEO MONITORING Marcy Perez RADIO MAINTAINER Foodist SERVICE [employer]S COORDINATOR Work Phone: Start: 10-20-2021 BASIC METABOLIC PANE L W/ REFLEX TO MG FOR LOW K Puri Rikki Mota MD Work Phone: Start: 10-20-2021 Blood count complete auto&auto difrntl wbc Lo Perez RADIO MAINTAINER Foodist [facility] Work Phone: Start: 10-20-2021 IMMATURE PLATELET FRACTION Lo Perez RADIO MAINTAINER Foodist [facility] Work Phone: Start: 10-19-2021 Assay of lactate Uday Perez [facility] [employer] Work Phone: Start: 10-19-2021 Ecg routine ecg w/le ast 12 lds w/i&r Lo Perez RADIO MAINTAINER Foodist [facility] Work Phone: Start: 10-19-2021 Mri brain brain stem w/o w/contrast material Lo Perez RADIO MAINTAINER Foodist [facility] Work Phone: Start: 10-19-2021 RESPIRATORY CARE EVALUATION ONLY Lo Perez RADIO MAINTAINER Foodist [facility] Work Phone: Start: 10-01-2021 Resection of [...] [facility] Start: 09-20-2025 Urine microalbumin profile [facility] Start: 01-05-2024 End: 01-05-2024 ambulatory 01/05/2024 1:00 PM EST Infusion Center Neurology [address] [place] [address] [facility] Comment on above: [facility] Start: 10-31-2023 End: 10-31-2023 Patient encounter procedure 10/31/2023 2:30 PM EDT Office Visit Neurology [address] [place] [address] Tyrone Dolan MD, PhD [address] [facility] [address] [place] [address] Seizure Neurology Comment on above: Seizure Start: 10-22-2023 Covid-19 Vaccine () Covid-19 Vaccine () [facility] Start: 10-22-2023 Influenza vaccination C [facility] Start: 10-13-2023 End: 10-13-2023 ambulatory 10/13/2023 1:00 PM EDT Infusion Center Neurology [address] [place] [address] [facility] Comment on above: [facility] Start: 09-19-2023 End: 09-19-2023 Patient encounter procedure 09/19/2023 2:30 PM EDT Office Visit Neurology [facility] [address] [place] [address] Logan Barth APRN.SERVICE PARTS COORDINATOR [address] [place] [address] Migraines Nerve Block Neurology [facility] Comment on above: Migraines Nerve Bloc k Start: 08-18-2023 End: 08-18-2023 Patient encounter procedure 08/18/2023 9:30 AM EDT Office Visit Neurology [address] [place] [address] Curtis Lepe PA-C [address] [place] [address] NERVE BLOCK Neurology Comment on above: NERVE BLOCK Start: 01-01-2024 [facility] Start[facility] 10-29-2022 Adult depression screening assessment DEPRESSION SCREENING [facility] Start: 10-21-2022 Covid-19 Vaccine ( season) Covid-19 Vaccine ( season) [facility] Start: 10-21-2022 Influenza vaccination C [facility] Start: 02-20-2022 DEPRESSION ASSESSMENT DEPRESSION ASS [facility] Start: 10-26-2021 End: 10-26-2022 SARS-CoV-2 (COVID-19) RNA [Presence] in Respiratory specimen by SAURABH with probe detection PRE-PROCEDURE & PRE-OPERATIVE COVID Microbiology Routine Seizure-like activity (HCC) Expected: 10/26/2021, Expires: 10/26/[address] [facility] Work Phone: Comment on above: Expected: 10/26/2021 , Expires: 10/26/2022 Start: 10-21-2021 Influenza vaccination [facility] Start: 02-20-2021 DEPRESSION ASSESSMENT DEPRESSION ASS [facility] Start: 10-21-2020 Influenza vaccination Flu vaccine (# 1) [facility] Work Phone: Start: 11-13-2016 PAP TESTING PAP TESTING [facility] Start: 11-13-2016 Screening for malign ant neoplasm of cervix [facility] Start: 11-13-2014 Urine microalbumin profile [facility] Start: 11-13-2013 Anxiety Screening Anxiety Screening [facility] Start: 11-13-2013 Depression Screening Depression Scre ening [facility] Start: 11-13-2013 Hepatitis C [facility] Start: 11-13-2013 HEPATITIS C SCREENING HEPATITIS C SC REENING [facility] Start: 11-13-2013 HIV SCREENING HIV SCREENING [facility] Start: 11-13-2013 HIV screening HIV Screening [facility] Start: 2011 Screening for Chlamy rose trachomatis Chlamydia screen [facility] Start: 11-13-2010 HIV screening HIV screen [facility] Start: 11-13-2009 PEDS TO ADULT TRANSITION ANNUAL ASSESSMENT PEDS TO ADULT TRANSITION ANNUAL ASSESSMENT [facility] Start: 2007 Adult depression screening assessment DEPRESSION SCREENING [facility] Start: 2007 COVID-19 Vaccine (1) COVID-19 Vaccin e (1) [employer] Phone: Start: 2007 Depression Screen Depression Screen [employer] Start: 2007 PEDS TO ADULT TRANSITION INITIAL DISCUSSION PEDS TO ADULT TRANSITION INITIAL DISCUSSION [facility] Start: 11-13-2006 HPV VACCINE (1 - 2-d ose series) HPV VACCINE (1 - 2-dose series) [facility] Start: 11-13-2004 HPV VACCINE (1 - 2-d ose series) HPV VACCINE (1 - 2-dose series) [facility] Start: 05-13-1996 COVID-19 Vaccine (#1) COVID-19 Vacci ne (#1) [employer] Start: 1995 HEPATITIS B (1 of 3 - 3-dose series) HEPATITIS B (1 of 3 - 3-dose series) [facility] Start: 1995 Hepatitis B Vaccine (1 of 3 - 3-dose series) Hepatitis B Vaccine (1 of 3 - 3-dose series) [facility] Start: 1995 Hepatitis C screening Hepatitis C sc radha [employer] Phone: End: 10-26-2021 Basic Metabolic Panel w/ Reflex to MG Basic Metabolic Panel w/ Reflex to MG Lab Routine Daily for 7 Days starting 10/20/2021 until 10/26/2021 [employer] Phone: Comment on above: Daily for 7 Days sta rting 10/20/2021 until 10/26/2021 End: 10-26-2021 CBC W Auto Differential panel - Blood CBC with Auto Differential Lab Routine Daily for 7 Days starting 10/20/2021 until 10/26/2021, 1 completed [employer] Phone: Comment on above: Daily for 7 Days sta rting 10/20/2021 until 10/26/2021, 1 completed EKG 12 Lead EKG 12 Lead ECG Routine 10/19/2021 5:55 PM EDT [employer] Phone: End: 10-29-2022 EPIL AMBULATORY EEG EPIL AMBULATORY EEG NEUROLOGY Routine Psychogenic nonepileptic seizure Spells of trembling 1 Occurrences starting 10/29/2021 until 10/29/[address] [facility] Work Phone: Comment on above: 1 Occurrences starti ng 10/29/2021 until 10/29/2022 End: 10-26-2022 EPIL EEG LEAD PLACEMENT EPIL EEG LEAD PLACEMENT NEUROLOGY Routine Seizure-like activity (HCC) 1 Occurrences starting 10/26/2021 until 10/26/[address] [facility] Work Phone: Comment on above: 1 Occurrences starti ng 10/26/2021 until 10/26/2022 End: 11-08-2022 EPIL EEG ROUTINE EPIL EEG ROUTINE NEUROLOGY Routine Seizure-like activity (HCC) 1 Occurrences starting 11/08/2021 until 11/08/[address] [facility] Work Phone: Comment on above: 1 Occurrences starti ng 11/08/2021 until 11/08/2022 EPIL VEEG ADMIT TO EMU/PMU EPIL VEEG ADMIT TO EMU/PMU NEUROLOGY Routine Seizure-like activity (HCC) Ordered: 10/26/[address] [facility] Work Phone: Comment on above: Ordered: 10/26/2021 Oxygen therapy [[facility] Data Set] Initiate Oxygen Therapy Protocol Respiratory Care Routine As Needed until discontinued starting 10/19/2021 [facility] Work Phone: Comment on above: As Needed until disc ontinued starting 10/19/2021 [facility] Immunizations Immunization Date Immunization Notes Care Provider Preethi black 12-08-2017 influenza virus vacc ine, unspecified formulation Suzan Driver APRN.FADY Work Phone: [facility] Payers Date Payer Category Payer Self-pay 2017 Medicaid [place] [employer] [place] [id number] 2017-Present Medicaid [id number] 2013 Medicaid [id number] 2011 Unknown 1995 Unknown [id number] 2.16.840.1.739074.3.579.2.173 1995 Unknown [id number] 2.16.840.1.757276.3.579.2.175 1995 Unknown [id number] 2.16.840.1.793942.3.579.2.727 1995 Unknown [id number] 2.16.840.1.675273.3.579.2.593 1995 Unknown [id number] 2.16.840.1.186040.3.579.2.593 1995 Unknown [id number] 2.16.840.1.365225.3.579.2.593 1995 Unknown [id number] 2.16.840.1.877176.3.579.2.593 1995 Unknown [id number] 2.16.840.1.728884.3.579.2.593 1995 Unknown [id number] 2.16.840.1.297310.3.579.2.593 1995 Unknown [id number] 2.16.840.1.841195.3.579.2.593 1995 Unknown [id number] 2.16.840.1.011049.3.579.2.593 1995 Unknown [id number] 2.16.840.1.880858.3.579.2.593 1995 Unknown [id number] 2.16.840.1.875280.3.579.2.593 1995 Unknown [id number] 2.16.840.1.398601.3.579.2.593 1995 Unknown [id number] 2.16.840.1.533672.3.579.2.593 1995 Unknown [id number] 2.16.840.1.735450.3.579.2.593 1995 Unknown [id number] 2.16.840.1.701624.3.579.2.593 1995 Unknown [id number] 2.16.840.1.733073.3.579.2.593 1995 Unknown [id number] 2.16.840.1.916285.3.579.2.593 1995 Unknown [id number] 2.16.840.1.775960.3.579.2.593 1995 Unknown [id number] 2.16.840.1.265696.3.579.2.593 1995 Unknown [id number] 2.16.840.1.665826.3.579.2.593 1995 Unknown [id number] 2.16.840.1.051229.3.579.2.593 1995 Unknown [id number] 2.16.840.1.311807.3.579.2.593 1995 Unknown [id number] 2.16.840.1.771465.3.579.2.593 1995 Unknown [id number] 2.16.840.1.076945.3.579.2.1259 1995 Unknown [id number] 2.16.840.1.562063.3.579.2.1259 1995 Unknown [id number] 2.16.840.1.755614.3.579.2.1259 1995 Unknown [id number] 2.16.840.1.277335.3.579.2.1259 1995 Unknown [id number] 2.16.840.1.226951.3.579.2.9 1995 Unknown [id number] 2.16.840.1.426451.3.579.2.9 1995 Unknown [id number] 2.16.840.1.894423.3.579.2.9 1995 Unknown [id number] 2.16.840.1.829321.3.579.2.1259 1995 Unknown [id number] 2.16.840.1.335431.3.579.2.9 1995 Unknown [id number] 2.16.840.1.842647.3.579.2.1259 1959 Unknown [id number] 1.2.840.713660.1.13.239.2.7.3.6 [id number] Social History Date Type Detail Facility Tobacco smoking stat [facility] Unknown if ever smoked [facility] Start: 1995 Sex Assigned At Not on file [facility] Start: 12-24-2020 End: 10-12-2022 Tobacco smoking status UTIS Never smoker [employer] Phone: Start: 12-24-2020 End: 10-12-2022 Tobacco use and exposure Never used [employer] Start: 12-24-2020 Alcohol intake Ex-drinker (finding) [employer] Phone: Start: 10-16-2021 End: 07-28-2022 Exposure to SARS-CoV-2 (event) Not sure [employer] Tobacco smoking stat [facility] Tobacco smoking consumption unknown [facility] [employer] Phone: Start: 06-23-2022 End: 08-08-2022 History of Social function [facility] Start: 06-23-2022 End: 08-08-2022 Patient Health Questionnaire 2 item (PHQ-2) [Reported] [facility] Adult Depression Screening Assessment 2 [facility] Clinical Notes 12-24-2020 to 11-10-2023 Telephone Encounter - Logan Barth APRN.CNP - 11/10/2023 2:12 PM EDTTelephone Encounter - Logan Barth APRN.CNP - 11/10/2023 2:12 PM EDTTelephone Encounter - Shana Gibbs - 11/10/2023 1:42 PM EDT Note Date & Type Note Facility 11-10-2023 Telephone encounter Note The following approved medication requests have been transmitted electronically. Requested Prescriptions Signed Prescriptions Disp Refills ZOLMitriptan (ZOMIG) 5 mg nasal spray 10 Each 5 Sig: Use 1 Hewlett in the nose as needed at onset of migraine headache. If symptoms persist or return, may repeat dose in other nostril after 2 hours. Maximum of 2 sprays per 24 hours Authorizing Provider: LOGAN BARTH keTORolac (TORADOL) 10 mg tablet 20 tablet 5 Sig: Take 1 tablet by mouth every 6 hours as needed (severe migraine). Authorizing Provider: LOGAN BARTH chlorzoxazone (PARAFON FORTE DSC) 500 mg tablet 20 tablet 5 Sig: Take 1 tablet by mouth two times a day as needed for muscle spasm (migraine). Authorizing Provider: LOGAN BARTH APRN.CNP [facility] 11-10-2023 Miscellaneous Notes The following approved medication requests have been transmitted electronically. Requested Prescriptions Signed Prescriptions Disp Refills ZOLMitriptan (ZOMIG) 5 mg nasal spray 10 Each 5 Sig: Use 1 Hewlett in the nose as needed at onset of migraine headache. If symptoms persist or return, may repeat dose in other nostril after 2 hours. Maximum of 2 sprays per 24 hours Authorizing Provider: LOGAN BARTH keTORolac (TORADOL) 10 mg tablet 20 tablet 5 Sig: Take 1 tablet by mouth every 6 hours as needed (severe migraine). Authorizing Provider: LOGAN BARTH chlorzoxazone (PARAFON FORTE DSC) 500 mg tablet 20 tablet 5 Sig: Take 1 tablet by mouth two times a day as needed for muscle spasm (migraine). Authorizing Provider: LOGAN BARTH APRN.CNP patient requesting refill via Mychart. Last OV: 09/19/2023 Future OV: None scheduled Last prescribed: 4 months ago (07/10/2023) by Logan Barth APRN.CNP Requested Prescriptions Pending Prescriptions Disp Refills ZOLMitriptan (ZOMIG) 5 mg nasal spray 10 Each 5 Sig: Use 1 Hewlett in the nose as needed at onset of migraine headache. If symptoms persist or return, may repeat dose in other nostril after 2 hours. Maximum of 2 sprays per 24 hours keTORolac (TORADOL) 10 mg tablet 20 tablet 5 Sig: Take 1 tablet by mouth every 6 hours as needed (severe migraine). chlorzoxazone (PARAFON FORTE DSC) 500 mg tablet 20 tablet 5 Sig: Take 1 tablet by mouth two times a day as needed for muscle spasm (migraine). documented in this encounter [facility] 11-10-2023 Telephone encounter Note The following approved medication requests have been transmitted electronically. Requested Prescriptions Signed Prescriptions Disp Refills promethazine (PHENERGAN) 25 mg tablet 90 tablet 5 Sig: Take 1 tablet by mouth every 4 hours as needed. FOR NAUSEA Authorizing Provider: LOGAN BARTH APRN.CNP [facility] 11-10-2023 Miscellaneous Notes The following approved medication requests have been transmitted electronically. Requested Prescriptions Signed Prescriptions Disp Refills promethazine (PHENERGAN) 25 mg tablet 90 tablet 5 Sig: Take 1 tablet by mouth every 4 hours as needed. FOR NAUSEA Authorizing Provider: LOGAN BARTH APRN.CNP Physician: Tab Call from patient requesting refill. Please E-Scribe Last office visit 09/19/23 with Green in person Next office visit N/A Requested Prescriptions Pending Prescriptions Disp Refills promethazine (PHENERGAN) 25 mg tablet 90 tablet 1 Sig: Take 1 tablet by mouth every 4 hours as needed. FOR NAUSEA Pharmacy Name: [facility] documented in this encounter [facility] 11-10-2023 Telephone encounter Note Physician: Tab Call from patient requesting refill. Please E-Scribe Last office visit 09/19/23 with Green in person Next office visit N/A Requested Prescriptions Pending Prescriptions Disp Refills promethazine (PHENERGAN) 25 mg tablet 90 tablet 1 Sig: Take 1 tablet by mouth every 4 hours as needed. FOR NAUSEA Pharmacy Name: [facility] 11-10-2023 Telephone encounter Note patient requesting refill via Mychart. Last OV: 09/19/2023 Future OV: None scheduled Last prescribed: 4 months ago (07/10/2023) by Logan Barth APRN.SERVICE PARTS COORDINATOR Requested Prescriptions Pending Prescriptions Disp Refills ZOLMitriptan (ZOMIG) 5 mg nasal spray 10 Each 5 Sig: Use 1 Hewlett in the nose as needed at onset of migraine headache. If symptoms persist or return, may repeat dose in other nostril after 2 hours. Maximum of 2 sprays per 24 hours keTORolac (TORADOL) 10 mg tablet 20 tablet 5 Sig: Take 1 tablet by mouth every 6 hours as needed (severe migraine). chlorzoxazone (PARAFON FORTE DSC) 500 mg tablet 20 tablet 5 Sig: Take 1 tablet by mouth two times a day as needed for muscle spasm (migraine). [facility] 10-13-2023 Note HNO ID: [id number] Author: JOHANA CANCINO RN Service: ? Author Type: Registered Nurse Type: Progress Notes Filed: 10/13/2023 14:00 Note Text: Pt in for Vyepti infusion. Pt rated headache 8 /10. Pt has severe nausea and mild dizziness. Educated pt on medications to be administered. Pt agreed to proceed as ordered. 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 1310 Patient started sneezing, stated she has light congestion. Shane Lepe in to see patient. Benadryl 50 mg IVP given. Per MARY Summers ok to finish Vyepti. Toradol ordered forheadache 8/10. 1312 Toradol 30 mg IVP given, Patient didn't take any oral Toradol today. She was educated not to use any NSAID including Toradol today. Ok to schedule next [facility]pti. Per MARY Summers pt may take antihistamine like Loratadine prior to next Vyepti. 1351 Pt fell asleep after Benadryl and Toradol given, . She woke up , stated headache is getting better, pain 6/10, nausea resolved. Mild dizziness. Patient appears sleepy but she is verbal, answers questions appropriately.. Boyfriend to drive patient home. Patient d/c via wheelchair.. [facility] 10-13-2023 History of Presen t illness Narrative Pt in for Vyepti infusion. Pt rated headache 8 /10. Pt has severe nausea and mild dizziness. Educated pt on medications to be administered. Pt agreed to proceed as ordered. 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 1310 Patient started sneezing, stated she has light congestion. Shane Lepe in to see patient. Benadryl 50 mg IVP given. Per MARY Summers ok to finish Vyepti. Toradol ordered forheadache 8/10. 1312 Toradol 30 mg IVP given, Patient didn't take any oral Toradol today. She was educated not to use any NSAID including Toradol today. Ok to schedule next Vyepti. Per MARY Summers pt may take antihistamine like Loratadine prior to next Vyepti. 1351 Pt fell asleep after Benadryl and Toradol given, . She woke up , stated headache is getting better, pain 6/10, nausea resolved. Mild dizziness. Patient appears sleepy but she is verbal, answers questions appropriately.. Boyfriend to drive patient home. Patient d/c via wheelchair.. documented in this encounter [facility] 09-19-2023 History of Presen t illness Narrative Images from the original note were not included. Outpatient [facility] - Follow Up Visit Accompanied by: Self Primary Problem List: ACTIVE PROBLEM LIST Seizure-Like Activity (Hcc) Psychogenic Nonepileptic Seizure Intractable Chronic Migraine Without Aura and With Status Migrainosus Chronic Migraine Without Aura, With Intractable Migraine, So Stated, With Status Migrainosus Chief Complaint: Patient presents with: Headache Interval Headache History: Coni Nicholson is a 27 year old year old female, with a history of asthma, anxiety, depression, PCOS, occipital neuralgia, psychogenic nonepileptic seizures, chronic migraine, and chronic daily headache following up today for headaches. Since the last visit, the patient states that their headaches are much worse. She ended up in the hospital after nerve block, does not want to repeat today. She increased Aimovig. Does not feel it is helping. Having daily nausea, taking promethazine daily. Inquiring re zofran pump. Headache 1 Location: right, left and retro-orbital Quality/Description: throbbing and sharp Associated Symptoms: Photophobia: yes Phonophobia: yes Nausea: yes Vomiting: yes Other symptoms: neck pain, dizziness and relieved in supine position Worse with activity: yes Number of migraine headache days/month: 20 Migraine headache severity: 5/10 Number of NON-migraine headache days/month: 10 Total Number of headache days/month: 30 Number of headache free days/month: 0 Triggers: stress Relieving factors: migraine mask, rest Positional changes: no Days missed from work or school in the last month: 15 days Headache status since the last visit: worse Preventative: aimovig 140, magnesium Abortive: phenergan, norflex, toradol, zomig ns Medications effective? no Prior Therapies Duration of Use Dose Reason for Discontinuation Analgesic Ketorolac (Toradol) Anti-Convulsant Lamotrigine (Lamictal) Topiramate (Topamax, Trokendi XL, Qudexy) Anti-Depressant and Antipsychotic Amitriptyline (Elavil) [place] (Eskalith, Lithobid) Nortriptyline (Pamelor, Aventyl) Anti-Migraine Dihydroergotamine [...] Intolerance Vortioxetine Hives Current Medications: promethazine (PHENERGAN) 25 mg tablet^Take 1 tablet by mouth every 4 hours as needed. FOR NAUSEA^Disp: 90 tablet^Rfl: 1 ZOLMitriptan (ZOMIG) 5 mg nasal spray^Use 1 Hewlett in the nose as needed at onset [...] once daily.^Disp: ^Rfl: Phentermine HCl 37.5 mg tablet^^Disp: ^Rfl: lithium carbonate 300 mg tablet^^Disp: ^Rfl: traZODone (DESYREL) 100 mg tablet^^Disp: ^Rfl: lamoTRIgine (LAMICTAL) 150 mg tablet^^Disp: ^Rfl: diazePAM (VALIUM) 10 mg tablet^^Disp: ^Rfl: I have reviewed the Health Status Assessment responses and discussed these with the patient: yes Logan Barth APRN.SERVICE PARTS COORDINATOR HEADACHE SCORES: 03/22/2023 07/10/2023 09/19/2023 Headache Questions ER visits since last office visit: 6 8 6 Hospital stays since last office visit 2 1 Limited ADLs in the last month: 15 Days missed from work or school in the last month: 15 Days headache pain free in the last month: 10 Days per month with ALL of the following symptoms - decreased productivity, light sensitivity and nausea: 15 30 Initial improvement of headache after botox injection at last visit: No change No change PRN medication usage in the last month: 15 Patient impression of improvement since last visit: No change Very much worse No change 03/22/2023 07/10/2023 09/19/2023 HIT-6 HIT-6 78 (Severe impact) 76 (Severe impact) 67 (Severe impact) 12/12/2022 03/22/2023 07/10/2023 OMID - [...] 07/10/2023 PHQ-9 Score 11 8 8 7 Review of Systems: Review of system : unchanged from the previous visit (sleep patterns, mood, energy, appetite, stress, exercising). Physical Examination: VS: BP 115/81 (BP Site: Right Arm, BP Position: Sitting, BP Cuff Size: Extra Large Adult) Pulse 80 Temp 37.3 C (99.1 F) (Temporal) Ht 158.4 cm (5' 2.36 ) Wt 118.8 kg (261 lb 12.7 oz) BMI 47.33 kg/m General: well appearing, in no acute distress, alert HEENT: Normocephalic/atraumatic. Skin: Color, texture, turgor normal. No rashes or lesions Musculoskeletal: No gross joint deformities. Neurological: Pain Behaviors: no pain behaviors observed Mental Status: Alert and oriented to person, place and time. Affect is normal. Speech is spontaneous and fluent without dysarthria. Short and mcfp memory, cognition and general fund of knowledge are good. Attention span and concentration are excellent. Cranial Nerves: II-Visual duarte are full. III, IV, -EOMI, VII-face is symmetric without evidence of weakness. VIII-hearing grossly intact. XII-No atrophy or fasciculations of the tongue. Motor: Normal muscle tone and bulk. No evidence of atrophy or fasciculations. Gait examination is normal. IMPRESSION: Coni Nicholson is a 27 year old year old female, with a history of asthma, anxiety, depression, PCOS, occipital neuralgia, psychogenic nonepileptic seizures, and chronic migraine. She initially had good results with starting Aimovig, but it has now no longer been effective even with dose increase. We will try Vyepti instead. Her neurological examination is essentially normal at this visit. PLAN: - stop aimovig - start trial vyepti 100 q3mo - continue all other medications as rx'ed Prior Authorizations: We will request precertification for Calcitonin Gene Related Peptide Monoclonal Antibody, Eptinezumab. This patient meets ICHD-3 criteria for treatment with CGRP MAB, She has Chronic Migraine Headache (CM), Chronic Migraine without aura, without mention of intractable migraine without mention of status migrainosus which occurs at least 15 days per month for at least 4 hours per day. The FDA has approved CGRP MAB for prevention of migraine. Specifically, the patient has 20 migraines per month, lasting 4 or more hours/d associated with photophobia, phonophobia, nausea, vomiting for three or more months. Medication overuse headache has been ruled out. Patient is not currently taking a Gepant for acute treatment of her migraine. The following preventative medications have been tried for 3 or more months without benefit or discontinued due and/or side effects. Anti-Convulsant Lamotrigine (Lamictal) Topiramate (Topamax, Trokendi XL, Qudexy) Anti-Depressant and Antipsychotic Amitriptyline (Elavil) [place] (Eskalith, Lithobid) Nortriptyline (Pamelor, Aventyl) Blood Pressure [...] benefits.) MEDICATION TREATMENT: Medications to Start Taking None Discussed pathophysiology of headache. Discussed use of [...] side effects, adverse reactions and drug interactions. Follow-up: for IV Vyepti infusion Level of service: Est level 4 (30-39 min). Time spent 30 min on the day of service, which included preparing to see the patient, [id number] patient care, completing clinical documentation, obtaining and/or reviewing separately obtained history, counseling and educating the patient/family/caregiver, ordering medications, tests, or procedures, and care coordination (not separately reported). Logan Barth APRN.[facility] Headache Section [facility] September 19, 2023 documented in this encounter [facility] 09-19-2023 Note HNO ID: [id number] Author: LOGAN BARTH APRN.CNP Service: ? Author Type: Nurse Practitioner Type: Progress Notes Filed: 09/19/2023 15:12 Note Text: Outpatient Headache Clinic - Follow Up Visit Accompanied by: Self Primary Problem List: ACTIVE PROBLEM LIST Seizure-Like Activity (Hcc) Psychogenic Nonepileptic Seizure Intractable Chronic Migraine Without Aura and With Status Migrainosus Chronic Migraine Without Aura, With Intractable Migraine, So Stated, With Status Migrainosus Chief Complaint: Patient presents with: Headache Interval Headache History: Coni Nicholson is a 27 year old year old female, with a history of asthma, anxiety, depression, PCOS, occipital neuralgia, psychogenic nonepileptic seizures, chronic migraine, and chronic daily headache following up today for headaches. Since the last visit, the patient states that their headaches are much worse. She ended up in the hospital after nerve block, does not want to repeat today. She increased Aimovig. Does not feel it is helping. Having daily nausea, taking promethazine daily. Inquiring re zofran pump. Headache 1 Location: right, left and retro-orbital Quality/Description: throbbing and sharp Associated Symptoms: Photophobia: yes Phonophobia: yes Nausea: yes Vomiting: yes Other symptoms: neck pain, dizziness and relieved in supine position Worse with activity: yes Number of migraine headache days/month: 20 Migraine headache severity: 5/10 Number of NON-migraine headache days/month: 10 Total Number of headache days/month: 30 Number of headache free days/month: 0 Triggers: stress Relieving factors: migraine mask, rest Positional changes: no Days missed from work or school in the last month: 15 days Headache status since the last visit: worse Preventative: aimovig 140, magnesium Abortive: phenergan, norflex, toradol, zomig ns Medications effective? no Prior Therapies Duration of Use Dose Reason for Discontinuation Analgesic Ketorolac (Toradol) Anti-Convulsant Lamotrigine (Lamictal) Topiramate (Topamax, Trokendi XL, Qudexy) Anti-Depressant and Antipsychotic Amitriptyline (Elavil) [place] (Eskalith, Lithobid) Nortriptyline (Pamelor, Aventyl) Anti-Migraine Dihydroergotamine [...] Intolerance Vortioxetine Hives Current Medications: promethazine (PHENERGAN) 25 mg tabletTake 1 tablet by mouth every 4 hours as needed. FOR NAUSEADisp: 90 tabletRfl: 1 ZOLMitriptan (ZOMIG) 5 mg nasal sprayUse 1 Hewlett in the nose as needed at onset [...] once daily.Disp: Rfl: Phentermine HCl 37.5 mg tabletDisp: Rfl: lithium carbonate 300 mg tabletDisp: Rfl: traZODone (DESYREL) 100 mg tabletDisp: Rfl: lamoTRIgine (LAMICTAL) 150 mg tabletDisp: Rfl: diazePAM (VALIUM) 10 mg tabletDisp: Rfl: I have reviewed the Health Status Assessment responses and discussed these with the patient: yes Logan Barth APRN.SERVICE PARTS COORDINATOR HEADACHE SCORES: 03/22/2023 07/10/2023 09/19/2023 Headache Questions ER visits since last office visit: 6 8 6 Hospital stays since last office visit 2 1 Limited ADLs in the last month: 15 Days missed from work or school in the last month: 15 Days headache pain free in the last month: 10 Days per month with ALL of the following symptoms - decreased productivity, light sensitivity and nausea: 15 30 Initial improvement of headache after (more content not included)... [facility] 08-18-2023 Instructions Curtis Lepe PA-C - 08/18/2023 2:39 PM EDT You received a greater occipital nerve block (GONB) today You may feel sore tomorrow at the site of the injection. You may use heat or ice for discomfort and gentle stretching. This should resolve in 24-36 hours. Greater Occipital Nerve Block (GONB) Article in [place] [employer] Journal By: Molina Barraza MD Many patients with chronic headache report that their pain typically arises from the neck or, more specifically, the base of the skull. Often that pain arises on one side or the other and extends forward to involve the top of the head, the jehovah's witness, the forehead, the eye or some combination thereof. These are termed cervicogenic (ie, born of the neck ) headaches. Residing in those areas of the skull base are the occipital nerves. Irritation/inflammation of those nerves may cause a specific type of neuralgiform pain: occipital neuralgia. More commonly, however, those nerves serve as major on-ramps to the superhighway upon which travel the pain signals that produce migraine and other types of headache. If one can block traffic on these busy on-ramps, then it may be possible to halt the flow of pain signal on the superhighway and thus--at least temporarily--halt head pain. Such is the logic of occipital nerve blocks (ONBs) for suppression of chronic headache. The blocks themselves are relatively simple to perform. Your physician will use a small needle to inject a solution into the area around the nerves; the composition of that solution differs according to physician experience and preference but most often contains a long-acting local anesthetic and a steroid anti-inflammatory drug. Insertion of the needle is not especially painful, but infusion of the solution may cause temporary discomfort. Pain relief can occur with startling rapidity, frequently within 15 minutes of the block(s). For those who experience relief, the duration of the therapeutic response varies widely: a day or so up to weeks... even months. When the procedure is performed by an experienced healthcare provider, complications of ONBs are quite rare. Because these are sensory nerves, you may experience some temporary numbness over the regions supplied by the nerves. Because the local anesthetic may diffuse into areas close to the lower brain stem and upper spinal cord, transient (hours at most) difficulty speaking or swallowing have been reported. And, as with all steroid therapy, caution should be taken to minimize the amount of steroid injected over any given period of time. Occipital nerve blocks are not for everyone, but for selected patients they can prove a more effective means of suppressing chronic headache than any oral medication. Frequently asked questions: 1. How long will it take? Typically no more than a minute or two; the procedure usually is performed in a regular examination room and does not require any preparation on the patient s part. 2. Can I resume my activities afterwards? Absolutely; you should have no problem driving afterwards and may carry on with your day as you would otherwise. 3. If I gain significant but only very brief relief, should I have the procedure repeated? Unfortunately, your HCP cannot predict with confidence whether a given ONB will be effective or--if effective--how long the benefit will last. If your treatment response is dramatically positive but short-lived, it probably makes sense to give it at least one more try. https://americanheadachesociety. org/wp-content/uploads//O bzuqijnl-Idheh-Zguzuc_Luh-2010.p df documented in this encounter [facility] 08-18-2023 History of Presen t illness Narrative Images from the original note were not included. Outpatient Headache Clinic - Procedure Note Accompanied by: Spouse Primary Problem List: ACTIVE PROBLEM LIST Seizure-Like Activity (Hcc) Psychogenic Nonepileptic Seizure Intractable Chronic Migraine Without Aura and With Status Migrainosus Chronic Migraine Without Aura, With Intractable Migraine, So Stated, With Status Migrainosus Chief Complaint: 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 without status migrainosus (primary encounter diagnosis) Psychogenic nonepileptic seizure Interval Headache History: Coni Nicholson is a 27 year old year old female, with a history of asthma, anxiety, depression, PCOS, occipital neuralgia, psychogenic nonepileptic seizures, and migraine following up today for bilateral greater occipital nerve block. She is currently in 3-week long episode of status migrainosus. Has been hospitalized multiple times over this 3 weeks for migraine cocktails and symptoms of PNES. Patient was requesting medication for incontinence as well as an Zofran pump for constant nausea. She reports that during her last hospitalization they took her prescription drugs that include Toradol, Phenergan, and Parafon forte. She plans to establish with absolutely moving forward. Does not follow with psychology for PNES. Procedure Note: Greater Occipital Nerve Block The risks, benefits and anticipated outcomes of the procedure, the risks and benefits of the alternatives to the procedure, and the roles and tasks of the personnel to be involved, were discussed with the patient, and the patient consents to the procedure and agrees to proceed. Electronic Informed consent signed. UNIVERSAL PROTOCOL / SAFETY CHECKLIST Procedure to be Performed: Bilateral greater Occipital Nerve Block Sign In: A Moment of CARE was completed. Personnel directly involved with the procedure wore the appropriate PPE (Personal Protective Equipment). No special equipment needed. Patient/Surrogate Stated/Verified: PATIENT VERIFIED(optional for EMERGENT procedures): Patient name, Date of , Relevant allergies and The intended procedure Time Out Communication: Intended patient and procedure match the source documents. Consent documented and matches the intended procedure. No relevant labs, photos, and/or imaging studies were applicable for review. Correct side/site marked and visible. Medications required for procedure verified. No fire risk assessment and interventions applicable. No implant(s) inserted. Sign Out: SIGN OUT (optional for EMERGENT procedures): No specimen collected. All instruments, equipment, possible retained foreign bodies accounted for. Post-procedure follow-up management communicated and Plan of Care Visit completed when applicable. Curtis Lepe PA-C 6 cc 0.5% Ropivacaine prepared in 2 3cc syringe . 3cc were injected into the right and left greater Occipital Nerve(s). 0cc were wasted. The occipital nerve(s) was injected 3cm caudal and 1.5 cm lateral to the inion where the main trunk of the occipital nerve penetrates the semispinalis muscle. The needle was placed perpendicular and the needle advanced 1.5 cm. After aspiration to ensure no obstruction or presence of blood, the area was injected. The needle was repositioned in a fan-like manner and the entire area was injected. The patient was told to use heat if there was discomfort later in the day. Pre injection pain 9/10 Post injection pain 7/10 Patient tolerated the procedure well. You received a greater occipital nerve block today. You may feel sore tomorrow at the site of the injection. You may use heat or ice for discomfort. This should resolve in 24-36 hours. Curtis Lepe PA-C Impression/plan: -Can send Phenergan 25 mg for nausea. Our department does not prescribe Zofran pump. Can consider scopolamine patch. -Recommend patient follows up with PCP for incontinence -Placed referral for psychology for CBT for history of PNES -Patient plans to follow-up with epilepsy clinic -Follow-up with Logan in 1 month Curtis Lepe PA-C Headache Section [facility] August 18, 2023 documented in this encounter [facility] 08-18-2023 Note HNO ID: [id number] Author: CURTIS LEPE PA-C Service: ? Author Type: Physician Chief Clinical Dietitian Type: Progress Notes Filed: 08/18/2023 14:39 Note Text: Outpatient Headache Clinic - Procedure Note Accompanied by: Spouse Primary Problem List: ACTIVE PROBLEM LIST Seizure-Like Activity (Hcc) Psychogenic Nonepileptic Seizure Intractable Chronic Migraine Without Aura and With Status Migrainosus Chronic Migraine Without Aura, With Intractable Migraine, So Stated, With Status Migrainosus Chief Complaint: 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 without status migrainosus (primary encounter diagnosis) Psychogenic nonepileptic seizure Interval Headache History: Coni Nicholson is a 27 year old year old female, with a history of asthma, anxiety, depression, PCOS, occipital neuralgia, psychogenic nonepileptic seizures, and migraine following up today for bilateral greater occipital nerve block. She is currently in 3-week long episode of status migrainosus. Has been hospitalized multiple times over this 3 weeks for migraine cocktails and symptoms of PNES. Patient was requesting medication for incontinence as well as an Zofran pump for constant nausea. She reports that during her last hospitalization they took her prescription drugs that include Toradol, Phenergan, and Parafon forte. She plans to establish with absolutely moving forward. Does not follow with psychology for PNES. Procedure Note: Greater Occipital Nerve Block The risks, benefits and anticipated outcomes of the procedure, the risks and benefits of the alternatives to the procedure, and the roles and tasks of the personnel to be involved, were discussed with the patient, and the patient consents to the procedure and agrees to proceed. Electronic Informed consent signed. UNIVERSAL PROTOCOL / SAFETY CHECKLIST Procedure to be Performed: Bilateral greater Occipital Nerve Block Sign In: A Moment of CARE was completed. Personnel directly involved with the procedure wore the appropriate PPE (Personal Protective Equipment). No special equipment needed. Patient/Surrogate Stated/Verified: PATIENT VERIFIED(optional for EMERGENT procedures): Patient name, Date of , Relevant allergies and The intended procedure Time Out Communication: Intended patient and procedure match the source documents. Consent documented and matches the intended procedure. No relevant labs, photos, and/or imaging studies were applicable for review. Correct side/site marked and visible. Medications required for procedure verified. No fire risk assessment and interventions applicable. No implant(s) inserted. Sign Out: SIGN OUT (optional for EMERGENT procedures): No specimen collected. All instruments, equipment, possible retained foreign bodies accounted for. Post-procedure follow-up management communicated and Plan of Care Visit completed when applicable. Curtis Lepe PA-C 6 cc 0.5% Ropivacaine prepared in 2 3cc syringe . 3cc were injected into the right and left greater Occipital Nerve(s). 0cc were wasted. The occipital nerve(s) was injected 3cm caudal and 1.5 cm lateral to the inion where the main trunk of the occipital nerve penetrates the semispinalis muscle. The needle was placed perpendicular and the needle advanced 1.5 cm. After aspiration to ensure no obstruction or presence of blood, the area was injected. The needle was repositioned in a fan-like manner and the entire area was injected. The patient was told to use heat if there was discomfort later in the day. Pre injection pain 9/10 Post injection pain 7/10 Patient tolerated the procedure well. You received a greater occipital nerve block today. You may feel sore tomorrow at the site of the injection. You may use heat or ice for discomfort. This should resolve in 24-36 hours. Curtis Lepe PA-C Impression/plan: -Can send Phenergan 25 mg for nausea. Our department does not prescribe Zofran pump. Can consider scopolamine patch. -Recommend patient follows up with PCP for incontinence -Placed referral for psychology for CBT for history of PNES -Patient plans to follow-up with epilepsy clinic -Follow-up with Logan in 1 month Curtis Lepe PA-C Headache Section [facility] August 18, 2023 [facility] 08-16-2023 Telephone encounter Note Forwarded to provider for review. PAPO: 07/10/2023 Future OV: 09/19/2023 Encounter from [facility] today 08/16/2023 [facility] 08-16-2023 Miscellaneous Notes Forwarded to provider for review. PAPO: 07/10/2023 Future OV: 09/19/2023 Encounter from [facility] today 08/16/2023 documented in this encounter [facility] 07-10-2023 History of Presen t [...] XL, Qudexy) Anti-Depressant and Antipsychotic Amitriptyline (Elavil) [place] (Eskalith, Lithobid) Nortriptyline (Pamelor, Aventyl) Anti-Migraine Dihydroergotamine [...] ZOLMitriptan (ZOMIG) 5 mg nasal spray^Use 1 Hewlett in the nose as needed at onset [...] these with the patient: yes Logan Barth APRN.SERVICE PARTS COORDINATOR HEADACHE SCORES: 12/12/2022 03/22/2023 07/10/2023 Headache Questions [...] Lymph 1.00 - 4.00 k/uL 0.84 Abs [place] <0.87 k/uL 0.06 Abs Eosin <0.46 k/uL [...] spontaneous and fluent without dysarthria. Short and watermelon inspector memory, cognition and general fund of knowledge [...] XL, Qudexy) Anti-Depressant and Antipsychotic Amitriptyline (Elavil) [place] (Eskalith, Lithobid) Nortriptyline (Pamelor, Aventyl) Blood Pressure [...] (ZOMIG) 5 mg nasal spray Use 1 Hewlett in the nose as needed at onset [...] Service: Virtual Visit 40 minutes Logan Barth APRN.CNP Headache Section [facility] July 10, 2023 documented in this encounter [facility] 07-10-2023 Note HNO ID: [id number] Author: LOGAN BARTH APRN.FADY Service: ? Author [...] XL, Qudexy) Anti-Depressant and Antipsychotic Amitriptyline (Elavil) [place] (Eskalith, Lithobid) Nortriptyline (Pamelor, Aventyl) Anti-Migraine Dihydroergotamine [...] ZOLMitriptan (ZOMIG) 5 mg nasal sprayUse 1 Hewlett in the nose as needed at onset [...] these with the patient: yes Logan Barth APRN.CNP HEADACHE SCORES: 12/12/2022 03/22/2023 07/10/2023 Headache Questions ER visits since last office visit: 6 6 8 Hospital stays [facility] (more content not included)... [facility] 06-26-2023 Telephone encounter Note Called Pt to clarify ER visit. States she was seen this morning at [facility] and given a Compazine and steroid shot States she cannot remember the name of steroid that was given. Information passed on to care team. Marc TOMAS RN Clinical Web Application Dev Specialist [facility] 06-26-2023 Miscellaneous Notes Called Pt to clarify ER visit. States she was seen this morning at [facility] and given a Compazine and steroid shot States she cannot remember the name of steroid that was given. Information passed on to care team. Marc TOMAS RN Clinical Web Application Dev Specialist [facility] documented in this encounter [facility] 06-26-2023 Telephone encounter Note Forwarded to provider for review. PAPO: 04/14/2023 with Suzan Driver APRN.CNP Future OV: None scheduled [facility] 06-26-2023 Miscellaneous Notes Forwarded to provider for review. PAPO: 04/14/2023 with Suzan [employer] RADIO MAINTAINER.SERVICE PARTS COORDINATOR Future OV: None scheduled MyChart message sent to patient to gain more information in regards to patient's migraine. documented in this encounter [facility] 06-26-2023 Telephone encounter Note MyChart message sent to patient to gain more information in regards to patient's migraine. [facility] 04-14-2023 Instructions Suzan Driver APRN.CNP - 04/14/2023 [...] refilled without delays. documented in this encounter [facility] 04-14-2023 History of Presen t illness Narrative Images from the original note were not included. Headache Center Infusion [facility] Note Primary Problem List: ACTIVE PROBLEM LIST [...] Level: 4/10 Hysterectomy for contraceptive Has a truck driver helper Current Preventative: recently prescribed aimovig Current Abortive: [...] ZOLMitriptan (ZOMIG) 5 mg nasal spray^Use 1 Hewlett in the nose as needed at onset [...] and clear, coherent, and relevant. Short and mcfp memory, cognition and general [...] which included preparing to see the patient, [id number] patient care, completing clinical documentation, obtaining and/or reviewing separately obtained history, performing a medically appropriate examination, counseling and educating the patient/family/caregiver, and ordering medications, tests, or procedures. Suzan Driver APRN.FADY Headache Section [facility] documented in this encounter [facility] 04-14-2023 Note HNO ID: [id number] Author: SUZAN DRIVER APRN.FADY Service: ? Author Type: Nurse Practitioner Type: Progress Notes Filed: 04/14/2023 10:49 Note Text: Headache Center Infusion [facility] Note Primary Problem List: ACTIVE PROBLEM LIST [...] Level: 4/10 Hysterectomy for contraceptive Has a truck driver helper Current Preventative: recently prescribed aimovig Current Abortive: [...] ZOLMitriptan (ZOMIG) 5 mg nasal sprayUse 1 Hewlett in the nose as needed at onset [...] and clear, coherent, and relevant. Short and watermelon inspector memory, cognition and general fund of knowledge [...] which included preparing to see the patient, [id number] patient care, completing clinical documentation, obtaining and/or reviewing separately obtained history, performing a medically appropriate examination, counseling and educating the patient/family/caregiver, and ordering medications, tests, or procedures. Suzan Driver APRN.SERVICE PARTS COORDINATOR Headache Section [facility] 04-14-2023 Note HNO ID: [id number] Author: INOCENCIO NAIR RN Service: ? Author Type: Registered Nurse Type: Progress Notes Filed: 04/14/2023 11:51 Note Text: Pt in for 3rd day of infusion. Pt rated headache 6/10. Pt has severe nausea and moderate dizziness. Educated pt on medications to be administered. Pt agreed to proceed as ordered. Patient has truck driver helper today. @0915: Patient tearful and c/o PIV site burning and very painful. No infiltration or redness of site noted, Ice-pack placed over PIV site. After a few minutes pt reported the ice-pack did not help and wanted PIV to be removed. PIV site removed. Patient remained very anxious and tearful, and requesting if anything else can be given for anxiety. [facility] JEWELRY MAKER notified. New PIV site started, 2nd dose of Benadryl given for anxiety. 2nd line: Compazine given for severe nausea. Per [facility] JEWELRY MAKER to hold Periactin today as the two doses of Benadryl and Compazine can cause drowsiness. Pts infusion complete, tolerated infusion. Headache 4/10. Pt stated no nausea and moderate dizziness. PIV site removed. Pt discharged from txt room at 1124 via wheelchair to ride in lobby. [facility] 04-14-2023 History of Presen t illness Narrative Pt in for 3rd day of infusion. Pt rated headache 6/10. Pt has severe nausea and moderate dizziness. Educated pt on medications to be administered. Pt agreed to proceed as ordered. Patient has truck driver helper today. @0915: Patient tearful and c/o PIV site burning and very painful. No infiltration or redness of site noted, Ice-pack placed over PIV site. After a few minutes pt reported the ice-pack did not help and wanted PIV to be removed. PIV site removed. Patient remained very anxious and tearful, and requesting if anything else can be given for anxiety. [facility] JEWELRY MAKER notified. New PIV site started, 2nd dose of Benadryl given for anxiety. 2nd line: Compazine given for severe nausea. Per [facility] JEWELRY MAKER to hold Periactin today as the two doses of Benadryl and Compazine can cause drowsiness. Pts infusion complete, tolerated infusion. Headache 4/10. Pt stated no nausea and moderate dizziness. PIV site removed. Pt discharged from txt room at 1124 via wheelchair to ride in lobby. documented in this encounter [facility] 04-13-2023 Note HNO ID: [id number] Author: JOHANA CANCINO RN Service: ? Author [...] She is working with a psychiatrist in [place] . Voiced stress is her biggest trigger for headaches. 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 I mentioned to patient our reboot program . Patient very interested to learn about it. Message send to our exchange teller and Rhina Lim to set up patient for evaluation. 1020 Patient sleeping on and off. Nausea subsiding. Patient declined Zofran. Stated Zofran ineffective. 1050 Infusion complete. Patient slept on and off. Nausea resolved. PINEDA 6/10. Patient verbal , appears sedated . D/c via wheel chair to her [facility]. [facility] 04-13-2023 History of Presen t illness [...] She is working with a psychiatrist in [place] . Voiced stress is her biggest trigger for headaches. 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 I mentioned to patient our reboot program . Patient very interested to learn about it. Message send to our exchange teller and Rhina Lim to set up patient for evaluation. 1020 Patient sleeping on and off. Nausea subsiding. Patient declined Zofran. Stated Zofran ineffective. 1050 Infusion complete. Patient slept on and off. Nausea resolved. PINEDA 6/10. Patient verbal , appears sedated . D/c via wheel chair to her in [facility]. documented in this encounter [facility] 04-13-2023 Miscellaneous Notes Patient is currently receiving infusions for headache. She is interested in learning about reboot program. Please schedule for evaluation. Johana Cancino RN documented in this encounter [facility] 04-12-2023 History of Presen t illness Narrative Images from the original note were not included. Headache Center Infusion CATRINA Note Primary Problem List: ACTIVE PROBLEM LIST [...] orders were placed: NO Cardiovascular risk factors (AL/STROKE/CAD/HTN): no Last triptan dose: none in 2 weeks Last muscle relaxer dose: none in past 2 week Last NSAID dose: none in last 2 weeks Current Pain level: 8/10 Nausea: severe Baseline Pain Level: 4/10 Has a truck driver helper Current Preventative: Botox PREEMPT Protocol (last round [...] ZOLMitriptan (ZOMIG) 5 mg nasal spray^Use 1 Hewlett in the nose as needed at onset [...] and clear, coherent, and relevant. Short and mcfp memory, cognition and general [...] which included preparing to see the patient, digj-zm-ailj patient care, completing clinical documentation, obtaining and/or reviewing separately obtained history, performing a medically appropriate examination, counseling and educating the patient/family/caregiver, and ordering medications, tests, or procedures. Suzan Driver APRN.FADY Headache Section [facility] documented in this encounter [facility] 04-12-2023 Note HNO ID: [id number] Author: SUZAN DRIVER APRN.CNP Service: ? Author Type: Nurse Practitioner Type: Progress Notes Filed: 04/12/2023 11:52 Note Text: Headache Center Infusion CATRINA Note Primary Problem List: ACTIVE PROBLEM LIST [...] orders were placed: NO Cardiovascular risk factors (AL/STROKE/CAD/HTN): no Last triptan dose: none in 2 weeks Last muscle relaxer dose: none in past 2 week Last NSAID dose: none in last 2 weeks Current Pain level: 8/10 Nausea: severe Baseline Pain Level: 4/10 Has a truck driver helper Current Preventative: Botox PREEMPT Protocol (last round [...] ZOLMitriptan (ZOMIG) 5 mg nasal sprayUse 1 Hewlett in the nose as needed at onset [...] and clear, coherent, and relevant. Short and mcfp memory, cognition and general [...] which included preparing to see the patient, helw-fn-cftx patient care, completing clinical documentation, obtaining and/or reviewing separately obtained history, performing a medically appropriate examination, counseling and educating the patient/family/caregiver, and ordering medications, tests, or procedures. Suzan Driver APRN.SERVICE PARTS COORDINATOR Headache Section [facility] 04-12-2023 Note HNO ID: [id number] Author: SUZAN JEFF RN Service: ? Author [...] vs oral periactin for sedation. Rhina Driver JEWELRY MAKER updated and agreeable. PIV started on 3rd [...] dizziness. Pt discharged from treatment room with truck driver helper via wheelchair due to effects from oral medications. [facility] 04-12-2023 History of Presen t illness Narrative 1105 Patient in for first day of IV infusions. Patient rated headache 8/10. Patient stated severe nausea and mild dizziness. Patient educated on medications to be administered. Patient verbalized understanding and agreed to proceed with infusions. Patient requested the PRN IV Benadryl vs oral periactin for sedation. Rhina Driver JEWELRY MAKER updated and agreeable. PIV started on 3rd [...] dizziness. Pt discharged from treatment room with truck driver helper via wheelchair due to effects from oral medications. documented in this encounter [facility] 04-12-2023 Instructions Suzan Driver APRN.SERVICE PARTS COORDINATOR - 04/12/2023 11:52 AM EST General Headache [...] much light. These can be obtained at [employer] or [employer]: see list below. 2. Limit use of acute treatments (xxqc-qbt-uxsdqnv medications, triptans, etc.) to no more than [...] and quiet environment. Relax and reduce stress. Jdqyzog2Txtas is a free catrina that can instruct you on some simple relaxtion and breathing techniques. Http://Babelgum is a free website that provides teaching videos on relaxation. Also, there are many apps that can be downloaded for mindful relaxation. An catrina called YOGA NIDRA will help walk you [...] ensuing treatment plans will be released via EMUZE and discussed during your follow-up appointment. Follow-up appointments are primarily provided by the Nurse Practitioners and Physician s Assistants in order to provide timely, accessible care. EMUZE: Please ask the schedulers to give you an activation code. The main way of communication is by EMUZE rather than phone lines, so if you have not signed up, please do so. EMUZE is also the way that you can review your labs and testing. We are not able to contact everyone to tell them results are normal. If you do not hear back from us regarding testing you have had, it should be considered normal or within normal range. If you have any questions about the results, you are free to message us. EMUZE is meant for simple questions regarding medications, possible side effects, or other simple straight forward questions in limited sentences, rather than multiple paragraphs of discussion. EMUZE is not meant for, or efficient for these complex questions, extensive questions, extensive medication adjustments, complex new symptoms or concerns. These issues beyond simple questions require a follow up visit with myself, one of our physician assistants, nurse practitioners, or a Virtual Visit via computer or smart phone, as detailed further down. Please contact [employer] if you are having issues with EMUZE or logging in to your virtual visit appointment. You can reach them at [phone] Refills: Please pay attention to when your [...] pepperoni, Pickled reynoso Pods of broad carmona (Rwandan beans, Afghan pea pods, Malagasy (jc) beans, frazier and navy beans Ripe [...] convincingly provoke headaches. documented in this encounter [facility] 04-03-2023 Miscellaneous Notes Ambulatory Pharmacy Prior Authorization Note Provider Intervention Required?: No- Pharmacy completed on your behalf. Rx Plan: Medicaid [facility] ([facility]) Drug: Aimovig 70MG/ML auto-injectors Cover My Meds Chong: [id number] Determination: Approved Prior Authorization/Case #: n/a Prior [...] refills. Prescriptions will now be processed through [facility] for determination of next steps. For questions relating to this submission, please contact [facility] at [phone] [facility] received prescription(s) for Aimovig 70MG/ML auto-injectors . Benefits investigation was conducted, indicating that a prior authorization is required. PA was initiated and pending review through [employer]. All pertinent clinical information was submitted to insurance. [facility] Chong: [id number] Ordering Provider: Logan Barth APRN.CNP Murtaugh, Alisha, RN [facility] P: , F: documented in this encounter [facility] 03-23-2023 Note HNO ID: [id number] Author: LOGAN BARTH APRN.FADY Service: ? Author [...] XL, Qudexy) Anti-Depressant and Antipsychotic Amitriptyline (Elavil) [place] (Eskalith, Lithobid) Nortriptyline (Pamelor, Aventyl) Anti-Migraine Dihydroergotamine [...] ZOLMitriptan (ZOMIG) 5 mg nasal sprayUse 1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 status migrainosus- Primary Chronic migraine without aura, with intractable migraine, so stated, without mention of status migrainosus [facility] Diagnosis 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 without status migrainosus- Primary Chronic migraine without aura, with intractable migraine, so stated, without mention of status migrainosus Psychogenic nonepileptic seizure documented in this encounter [facility] note* Diagnosis 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 without status migrainosus- Primary Chronic migraine without aura, with intractable migraine, so stated, without mention of status migrainosus documented in this encounter [facility] note* Diagnosis 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 without status migrainosus- Primary Chronic migraine without aura, with intractable migraine, so stated, without mention of status migrainosus documented in this encounter [facility] note* Diagnosis 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 without status migrainosus Chronic migraine without aura, with intractable migraine, so stated, without mention of status migrainosus documented in this encounter [facility] for referral (narrative)* Outpatient Procedure (Routine) - Pending Review Specialty Diagnoses / Procedures Referred By Sushma veloz Referred To Contact NEUROLOGICAL RACINE Diagnoses Seizure-like activity (HCC) Procedures EPIL EEG LEAD PLACEMENT EEG EXTENDED MONITORING 61-119 MINUTES ELECTROENCEPHALOGRAM REC COMA/SLEEP ONLY Geri Madera APRN.CNP [address] [place] [address] [id number] [place] [address] Referral ID Status Reason Start Date Expiration Date Visits Requested Visits Authorized [id number] Pending Review Auto-Generat ed Referral 10/26/2021 10/26/2022 1 1 [facility] Outpatient Procedure (Routine) - Pending Review Specialty Diagnoses / Procedures Referred By Sushma veloz Referred To Contact NEUROLOGICAL RACINE Diagnoses Psychogenic nonepileptic seizure Spells of trembling Procedures EPIL AMBULATORY EEG EEG COMPLETE STD PHYS/QHP&GT;84 HR W/O Tyrone Diaz MD, PhD [address] [facility] [place] [address] [place] [address] Referral ID Status Reason Start Date Expiration Date Visits Requested Visits Authorized [id number] Pending Review Auto-Generat ed Referral 10/29/2021 10/29/2022 1 1 * Outpatient Procedure (Routine) - Pending Review Specialty Diagnoses / Procedures Referred By Contac t Referred To Contact NEUROLOGICAL RACINE Diagnoses Psychogenic nonepileptic seizure Spells of trembling Procedures EPIL AMBULATORY EEG EEG COMPLETE STD PHYS/QHP&GT;84 HR W/O VID Tyrone Dolan MD, PhD [id number] [place] [address] Referral ID Status Reason Start Date Expiration Date Visits Requested Visits Authorized [id number] Pending Review Auto-Generat ed Referral 10/29/2021 10/29/2022 1 1 * Consult, Test, Treat (Routine) - Authorized Specialty Diagnoses / Procedures Referred By Contac t Referred To Contact Diagnoses Chronic intractable headache, unspecified headache type Procedures CONSULT TO HEADACHE CLINIC OFFICE/OUTPATIENT NEW HIGH MDM 60-74 MINUTES Tyrone Dolan MD, PhD [address] [address] Referral ID Status Reason Start Date Expiration Date Visits Requested Visits Authorized [id number] Authorized PCP Requested Referral 10/29/2021 10/29/2022 1 1 [facility] for referral (narrative)* Outpatient Procedure (Routine) - Pending Review Specialty Diagnoses / Procedures Referred By Contac t Referred To Contact NEUROLOGICAL RACINE Diagnoses Seizure-like activity (HCC) Procedures EPIL EEG ROUTINE ELECTROENCEPHALOGRAM REC COMA/SLEEP ONLY Nelly Saldaña PA-C [address] [place] [address] [facility] [place] [address] Referral ID Status Reason Start Date Expiration Date Visits Requested Visits Authorized [id number] Pending Review Auto-Generat ed Referral 11/08/2021 11/08/2022 1 1 [facility] Advance Directives No Advanced Directives Records FoundDocuments on File Type Date Recorded Patient Rubber Flap Cutter Expl anation ACP-Advance Directive ACP-Power of Tile Conduit Layer Latest Code Status on File Code Status [...] Starting on Meg 07/28/22 at 0741, Until Mon07/28/22 at 1332, Nausea/Vomiting - First Line - [...] By Contac t Referred To Contact Jesse Borrego MD [address] [place] [address] Referral ID Status Reason Start Date Expiration Date Visits Re quested Visits Authorized [id number] Closed 1 1 Specialty Diagnoses / Procedures Referred By Contac t Referred To Contact Diagnoses 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 with status migrainosus 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 without status migrainosus Procedures PROVIDER ORDERED FOLLOW UP OFFICE/OUTPATIENT [facility] MDM 60 MINUTES Suzan Driver APRN.SERVICE PARTS COORDINATOR [address] [place] [address] Referral ID Status Reason Start Date Expiration Date Visits Requested Visits Authorized [id number] Authorized PCP Requested Referral 07/13/2023 04/13/2024 1 1 Specialty Diagnoses / Procedures Referred By Contac t Referred To Contact Diagnoses 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 without status migrainosus Procedures PROVIDER ORDERED FOLLOW UP OFFICE/OUTPATIENT [facility] 60 MINUTES [employer] APRN.SERVICE PARTS COORDINATOR [address] [place] [address] Referral ID Status Reason Start Date Expiration Date Visits Requested Visits Authorized [id number] Authorized PCP Requested Referral 10/10/2023 07/09/2024 1 1 Specialty Diagnoses / Procedures Referred By Contac t Referred To Contact Logan Barth APRN.SERVICE PARTS COORDINATOR [address] [id number] Referral ID Status Reason Start Date Expiration Date V isits Requested Visits Authorized [id number] Authorized 07/10/2023 09/22/2023 1 1 Specialty Diagnoses / Procedures Referred By Contac t Referred To Contact Psychology Diagnoses Psychogenic nonepileptic seizure Procedures CONSULT TO PSYCHOLOGY OFFICE/OUTPATIENT [facility] 60 MINUTES Curtis Lepe PA-C [address] [place] [address] Referral ID Status Reason Start Date Expiration Date Visits Requested Visits Authorized [id number] Pending Review PCP Requested Referral 08/18/2023 08/17/2024 1 1 Additional Source Comments Source Comments (unrecognize d section and content) In the event this informatio n is protected by the Federal Confidentiality of Alcohol and Drug Abuse Patient Records regulations: The Federal rules restrict any use of the information to criminally investigate or prosecute any alcohol or drug abuse patient.[facility] the event this information is protected by the Federal Confidentiality of Alcohol and Drug Abuse Patient Records regulations: The Federal rules restrict any use of the information to criminally investigate or prosecute any alcohol or drug abuse patient.[facility] the event this information is protected by the Federal Confidentiality of Alcohol and Drug Abuse Patient Records regulations: The Federal rules restrict any use of the information to criminally investigate or prosecute any alcohol or drug abuse patient.[facility] the event this information is protected by the Federal Confidentiality of Alcohol and Drug Abuse Patient Records regulations: The Federal rules restrict any use of the information to criminally investigate or prosecute any alcohol or drug abuse patient.[facility] the event this information is protected by the Federal Confidentiality of Alcohol and Drug Abuse Patient Records regulations: The Federal rules restrict any use of the information to criminally investigate or prosecute any alcohol or drug abuse patient.[facility] the event this information is protected by the Federal Confidentiality of Alcohol and Drug Abuse Patient Records regulations: The Federal rules restrict any use of the information to criminally investigate or prosecute any alcohol or drug abuse patient.[facility] the event this information is protected by the Federal Confidentiality of Alcohol and Drug Abuse Patient Records regulations: The Federal rules restrict any use of the information to criminally investigate or prosecute any alcohol or drug abuse patient.[facility] the event this information is protected by the Federal Confidentiality of Alcohol and Drug Abuse Patient Records regulations: The Federal rules restrict any use of the information to criminally investigate or prosecute any alcohol or drug abuse patient.[facility] the event this information is protected by the Federal Confidentiality of Alcohol and Drug Abuse Patient Records regulations: The Federal rules restrict any use of the information to criminally investigate or prosecute any alcohol or drug abuse patient.[facility] the event this information is protected by the Federal Confidentiality of Alcohol and Drug Abuse Patient Records regulations: The Federal rules restrict any use of the information to criminally investigate or prosecute any alcohol or drug abuse patient.[facility] the event this information is protected by the Federal Confidentiality of Alcohol and Drug Abuse Patient Records regulations: The Federal rules restrict any use of the information to criminally investigate or prosecute any alcohol or drug abuse patient.[facility] the event this information is protected by the Federal Confidentiality of Alcohol and Drug Abuse Patient Records regulations: The Federal rules restrict any use of the information to criminally investigate or prosecute any alcohol or drug abuse patient.[facility] the event this information is protected by the Federal Confidentiality of Alcohol and Drug Abuse Patient Records regulations: The Federal rules restrict any use of the information to criminally investigate or prosecute any alcohol or drug abuse patient.[facility] the event this information is protected by the Federal Confidentiality of Alcohol and Drug Abuse Patient Records regulations: The Federal rules restrict any use of the information to criminally investigate or prosecute any alcohol or drug abuse patient.[facility] the event this information is protected by the Federal Confidentiality of Alcohol and Drug Abuse Patient Records regulations: The Federal rules restrict any use of the information to criminally investigate or prosecute any alcohol or drug abuse patient.[facility] the event this information is protected by the Federal Confidentiality of Alcohol and Drug Abuse Patient Records regulations: The Federal rules restrict any use of the information to criminally investigate or prosecute any alcohol or drug abuse patient.[facility] the event this information is protected by the Federal Confidentiality of Alcohol and Drug Abuse Patient Records regulations: The Federal rules restrict any use of the information to criminally investigate or prosecute any alcohol or drug abuse patient.[facility] the event this information is protected by the Federal Confidentiality of Alcohol and Drug Abuse Patient Records regulations: The Federal rules restrict any use of the information to criminally investigate or prosecute any alcohol or drug abuse patient.[facility] the event this information is protected by the Federal Confidentiality of Alcohol and Drug Abuse Patient Records regulations: The Federal rules restrict any use of the information to criminally investigate or prosecute any alcohol or drug abuse patient.[facility] Center[facility] the event this information is protected by the Federal Confidentiality of Alcohol and Drug Abuse Patient Records regulations: The Federal rules restrict any use of the information to criminally investigate or prosecute any alcohol or drug abuse patient.[facility] CenterIn the event this information is protected by the Federal Confidentiality of Alcohol and Drug Abuse Patient Records regulations: The Federal rules restrict any use of the information to criminally investigate or prosecute any alcohol or drug abuse patient.[facility] CenterIn the event this information is protected by the Federal Confidentiality of Alcohol and Drug Abuse Patient Records regulations: The Federal rules restrict any use of the information to criminally investigate or prosecute any alcohol or drug abuse patient.[facility] CenterIn the event this information is protected by the Federal Confidentiality of Alcohol and Drug Abuse Patient Records regulations: The Federal rules restrict any use of the information to criminally investigate or prosecute any alcohol or drug abuse patient.[facility] CenterIn the event this information is protected by the Federal Confidentiality of Alcohol and Drug Abuse Patient Records regulations: The Federal rules restrict any use of the information to criminally investigate or prosecute any alcohol or drug abuse patient.[facility] CenterIn the event this information is protected by the Federal Confidentiality of Alcohol and Drug Abuse Patient Records regulations: The Federal rules restrict any use of the information to criminally investigate or prosecute any alcohol or drug abuse patient.[facility] CenterIn the event this information is protected by the Federal Confidentiality of Alcohol and Drug Abuse Patient Records regulations: The Federal rules restrict any use of the information to criminally investigate or prosecute any alcohol or drug abuse patient.[facility] CenterIn the event this information is protected by the Federal Confidentiality of Alcohol and Drug Abuse Patient Records regulations: The Federal rules restrict any use of the information to criminally investigate or prosecute any alcohol or drug abuse patient.[facility] CenterIn the event this information is protected by the Federal Confidentiality of Alcohol and Drug Abuse Patient Records regulations: The Federal rules restrict any use of the information to criminally investigate or prosecute any alcohol or drug abuse patient.[facility] CenterIn the event this information is protected by the Federal Confidentiality of Alcohol and Drug Abuse Patient Records regulations: The Federal rules restrict any use of the information to criminally investigate or prosecute any alcohol or drug abuse patient.[facility] CenterIn the event this information is protected by the Federal Confidentiality of Alcohol and Drug Abuse Patient Records regulations: The Federal rules restrict any use of the information to criminally investigate or prosecute any alcohol or drug abuse patient.[facility] CenterIn the event this information is protected by the Federal Confidentiality of Alcohol and Drug Abuse Patient Records regulations: The Federal rules restrict any use of the information to criminally investigate or prosecute any alcohol or drug abuse patient.[facility] CenterIn the event this information is protected by the Federal Confidentiality of Alcohol and Drug Abuse Patient Records regulations: The Federal rules restrict any use of the information to criminally investigate or prosecute any alcohol or drug abuse patient.[facility] CenterIn the event this information is protected by the Federal Confidentiality of Alcohol and Drug Abuse Patient Records regulations: The Federal rules restrict any use of the information to criminally investigate or prosecute any alcohol or drug abuse patient.[facility] CenterIn the event this information is protected by the Federal Confidentiality of Alcohol and Drug Abuse Patient Records regulations: The Federal rules restrict any use of the information to criminally investigate or prosecute any alcohol or drug abuse patient.[facility] CenterIn the event this information is protected by the Federal Confidentiality of Alcohol and Drug Abuse Patient Records regulations: The Federal rules restrict any use of the information to criminally investigate or prosecute any alcohol or drug abuse patient.[facility] CenterIn the event this information is protected by the Federal Confidentiality of Alcohol and Drug Abuse Patient Records regulations: The Federal rules restrict any use of the information to criminally investigate or prosecute any alcohol or drug abuse patient.[facility] CenterIn the event this information is protected by the Federal Confidentiality of Alcohol and Drug Abuse Patient Records regulations: The Federal rules restrict any use of the information to criminally investigate or prosecute any alcohol or drug abuse patient.[facility] CenterIn the event this information is protected by the Federal Confidentiality of Alcohol and Drug Abuse Patient Records regulations: The Federal rules restrict any use of the information to criminally investigate or prosecute any alcohol or drug abuse patient.[facility] CenterIn the event this information is protected by the Federal Confidentiality of Alcohol and Drug Abuse Patient Records regulations: The Federal rules restrict any use of the information to criminally investigate or prosecute any alcohol or drug abuse patient.[facility] CenterIn the event this information is protected by the Federal Confidentiality of Alcohol and Drug Abuse Patient Records regulations: The Federal rules restrict any use of the information to criminally investigate or prosecute any alcohol or drug abuse patient.[facility] CenterIn the event this information is protected by the Federal Confidentiality of Alcohol and Drug Abuse Patient Records regulations: The Federal rules restrict any use of the information to criminally investigate or prosecute any alcohol or drug abuse patient.[facility] CenterIn the event this information is protected by the Federal Confidentiality of Alcohol and Drug Abuse Patient Records regulations: The Federal rules restrict any use of the information to criminally investigate or prosecute any alcohol or drug abuse patient.[facility] CenterIn the event this information is protected by the Federal Confidentiality of Alcohol and Drug Abuse Patient Records regulations: The Federal rules restrict any use of the information to criminally investigate or prosecute any alcohol or drug abuse patient.[facility] CenterIn the event this information is protected by the Federal Confidentiality of Alcohol and Drug Abuse Patient Records regulations: The Federal rules restrict any use of the information to criminally investigate or prosecute any alcohol or drug abuse patient.[facility] CenterIn the event this information is protected by the Federal Confidentiality of Alcohol and Drug Abuse Patient Records regulations: The Federal rules restrict any use of the information to criminally investigate or prosecute any alcohol or drug abuse patient.[facility] Reason for Visit (unrecogniz ed section and content) Reason Comments Infusion Headache Specialty Diagnoses / Procedures Referred By Contac t Referred To Contact Diagnoses 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 without status migrainosus Procedures INJECTION, [id number], 1 MG Logan Barth APRN.SERVICE PARTS COORDINATOR [address] [place] [address] Neur Headache Main [address] [place] [address] Referral ID Status Reason Start Date Expiration Date V isits Requested Visits Authorized [id number] Authorized 09/20/2023 03/22/2024 2 2 Reason Comments Nerve Block Specialty Diagnoses / Procedures Referred By Contac t Referred To Contact Neurology / HEADACHE Diagnoses NON-DHE #1 Procedures INFUSION HEADACHE Suzan Driver APRN.SERVICE PARTS COORDINATOR [address] [id number] Neur Headache Main [address] [place] [id number] Referral ID Status Reason Start Date Expiration Date V isits Requested Visits Authorized [id number] Authorized 04/12/2023 02/20/2024 99 99 Reason Comments Headache Infusion Specialty Diagnoses / Procedures Referred By Contac t Referred To Contact Neurology / HEADACHE Diagnoses NON-DHE #1 Procedures [facility]USION HEADACHE [facility]ado RADIO MAINTAINER.SERVICE PARTS COORDINATOR [address] [phone] Neur Headache Main [address] [place] [address] Reason Comments Future Appointment [place], [place], Any Reason Comments Migraine seen at [place] yest erday for Migrane and D & C for miscarrage Reason Comments New Patient Reason Comments Orders Reason Comments Seizures Follow Up Reason Comments Migraine x 2 week lasts up to 4 days light sensitivity, sees silver dots looks like stars. Goes into convulsions during migraines. No meds for migraines has ever worked. Reason Comments Appointment infusion Specialty Diagnoses / Procedures Referred By Contac t Referred To Contact Neurology / HEADACHE Diagnoses DHE Procedures INFUSION HEADACHE Abdifatah Brady MD [address] [place] [address] Neur Headache [address] [place] [address] Referral ID Status Reason Start Date Expiration Date Visits Re quested Visits Authorized [id number] Closed 07/28/2022 09/26/2022 1 1 Reason Comments Chronic Migraine Reason Comments Chronic Migraine Reason Comments Insurance Authorization Zomig 5MG nasal spray Reason Comments Infusion Reason Comments Migraine Specialty Diagnoses / Procedures Referred By Contac t Referred To Contact Neurology / HEADACHE Diagnoses POSSIBLE DHE/WAITING FOR ORDERS Procedures INFUSION HEADACHE Self Neur Headache [address] [place] [address] Referral ID Status Reason Start Date Expiration Date V isits Requested Visits Authorized [id number] Authorized 11/10/2022 02/08/2023 1 99 Reason Onset Date Comments Refill Request 12/09/2022 Reason Onset Date Comments Refill Request 12/13/2022 Reason Comments Infusion HEADACHE INFUSIONS Reason Comments Insurance Authorization Aimovig 70MG/ML auto-injectors Reason Comments Appointment Patient currently re ceiving infusions for headache. She is interested in learning about reboot program. Please schedule patient for evaluation if appropriate to proceed. Reason Comments Migraine Reason Comments Migraine Reason Comments Headache Specialty Diagnoses / Procedures Referred By Contac t Referred To Contact Neurology / HEADACHE Diagnoses Chronic migraine without aura, intractable, without status migrainosus Migraines Nerve Block Procedures INJECTION AA&/STRD GREATER OCCIPITAL NERVE NERVE BLOCK Logan Barth APRN.SERVICE PARTS COORDINATOR [address] [place] [address] Tyrone Dolan MD, PhD [address] [place] [address] Referral ID Status Reason Start Date Expiration Date Visits Re quested Visits Authorized [id number] Closed 08/28/2023 02/20/2024 1 1 Reason Onset Date Comments Refill Request 11/10/2023 Scheduled Active and Recently Administ ered Medications [...] hours off 833 (Patch Applied - Provider: Clementien Cm RN)2033 (Due: Patch Removed - Provider: Clementine mC RN) midazolam PF (VERSED) injection 1 mg [...] from c section)0834 (Given - Provider: Clementine Cm, PRATIBHA) acetaminophen (TYLENOL) tablet 650 mg (CANCELED) 650 mg, Oral, EVERY 6 HOURS PRN, Starting on Mon10/19/21 at 1226, Until Mon10/19/21 at 2354, Pain Mild (1-3), Fever, For temp greater than 100.4 F (38 C), Maximum dose of acetaminophen is 4000 mg from all sources in 24 hours. 183 (Given - Provider: Adrienne Stephens RN) gadoteridol [...] section and content) DATE CREATED AUTHOR 12/26/2020 [facility] DATE CREATED AUTHOR AUTHOR'S ORGANIZ ATION 10/25/2021 [facility] DATE CREATED AUTHOR AUTHOR'S ORGANIZ ATION 05/26/2022 [facility] DATE CREATED AUTHOR AUTHOR'S ORGANIZ ATION 08/02/2022 [facility] DATE CREATED AUTHOR AUTHOR'S ORGANIZ ATION 10/15/2023 [facility] DATE CREATED AUTHOR AUTHOR'S ORGANIZ ATION 11/12/2023 [facility] DATE CREATED AUTHOR AUTHOR'S ORGANIZ ATION 11/17/2023 [facility] EPIC Ordered Prescriptions (unrec ognized section and content) Prescription Sig Dispensed Refills Start Date End Da te lamoTRIgine (LAMICTAL) 25 MG tablet Take 2 tablets by mouth daily 30 tablet 3 10/21/2021 Care Teams (unrecognized sec tion and content) Ticket Dispenser Changer Relationship Specialty Start Date End Date Angélica Arthur, RADIO MAINTAINER - SERVICE PARTS COORDINATOR [address] [place] [address] PCP - General Nurse Practitioner 12/24/20 Ticket Dispenser Changer Relationship Specialty Start Date End Date Hoy, Abdifatah M (Historical) PCP - General 05/21/13 Ticket Dispenser Changer Relationship Specialty Start Date End Date Hoy, Abdifatah M (Historical) PCP - General 05/21/13 Ticket Dispenser Changer Relationship Specialty Start Date End Date Hoy, Abdifatah M (Historical) PCP - General 05/21/13 Ticket Dispenser Changer Relationship Specialty Start Date End Date Hoy, Abdifatah M (Historical) PCP - General 05/21/13 Ticket Dispenser Changer Relationship Specialty Start Date End Date Hoy, Abdifatah M (Historical) PCP - General 05/21/13 Ticket Dispenser Changer Relationship Specialty Start Date End Date Hoy, Abdifatah M (Historical) PCP - General 05/21/13 Ticket 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 Changer Relationship Specialty Start Date End Date Hoy, Abdifatah M (Historical) PCP - General 05/21/13 Ticket Dispenser Changer Relationship Specialty Start Date End Date Hoy, Abdifatah M (Historical) PCP - General 05/21/13 Ticket Dispenser Changer Relationship Specialty Start Date End Date Hoy, Abdifatah M (Historical) PCP - General 05/21/13 Ticket Dispenser Changer Relationship Specialty Start Date End Date Hoy, Abdifatah M (Historical) PCP - General 05/21/13 Ticket Dispenser Changer Relationship Specialty Start Date End Date Hoy, Abdifatah M (Historical) PCP - General 05/21/13 Ticket Dispenser Changer Relationship Specialty Start Date End Date Hoy, Abdifatah M (Historical) PCP - General 05/21/13 Ticket Dispenser Changer Relationship Specialty Start Date End Date Hoy, Abdifatah M (Historical) PCP - General 05/21/13 Ticket Dispenser Changer Relationship Specialty Start Date End Date Hoy, Abdifatah M (Historical) PCP - General 05/21/13 Ticket Dispenser Changer Relationship Specialty Start Date End Date Hoy, Abdifatah M (Historical) PCP - General 05/21/13 Ticket Dispenser Changer Relationship Specialty Start Date End Date Hoy, Abdifatah M (Historical) PCP - General 05/21/13 Ticket Dispenser Changer Relationship Specialty Start Date End Date Hoy, Abdifatah M (Historical) PCP - General 05/21/13 Ticket Dispenser Changer Relationship Specialty Start Date End Date Hoy, Abdifatah M (Historical) PCP - General 05/21/13 Ticket Dispenser Changer Relationship Specialty Start Date End Date HoNoam beanlas M (Historical) PCP - General 05/21/13 Ticket Dispenser Changer Relationship Specialty Start Date End Date HoNoam beanlas M (Historical) PCP - General 05/21/13 Ticket Dispenser Changer Relationship Specialty Start Date End Date HoyNoamAbdifatah M (Historical) PCP - General 05/21/13 Ticket Dispenser Changer Relationship Specialty Start Date End Date HoyNoamAbdifatah M (Historical) PCP - General 05/21/13 Ticket Dispenser Changer Relationship Specialty Start Date End Date HoyNoamAbdifatah M (Historical) PCP - General 05/21/13 Ticket Dispenser Changer Relationship Specialty Start Date End Date Hoy Abdifatah M (Historical) PCP - General 05/21/13 Ticket Dispenser Changer Relationship Specialty Start Date End Date HoyNoamAbdifatah M (Historical) PCP - General 05/21/13 Ticket Dispenser Changer Relationship Specialty Start Date End Date Hoy Abdifatah M (Historical) PCP - General 05/21/13 Ticket Dispenser Changer Relationship Specialty Start Date End Date HoyNoamAbdifatah M (Historical) PCP - General 05/21/13 Ticket Dispenser Changer Relationship Specialty Start Date End Date HoyNoamAbdifatah M (Historical) PCP - General 05/21/13 Ticket Dispenser Changer Relationship Specialty Start Date End Date HoNoam beanlas M (Historical) PCP - General 05/21/13 Ticket Dispenser Changer Relationship Specialty Start Date End Date HoNoam beanlas M (Historical) PCP - General 05/21/13 Ticket Dispenser Changer Relationship Specialty Start Date End Date HoNoam beanlas M (Historical) PCP - General 05/21/13 Ticket Dispenser Changer Relationship Specialty Start Date End Date HoNoam beanlas M (Historical) PCP - General 05/21/13 Ticket Dispenser Changer Relationship Specialty Start Date End Date HoyNoamAbdifatah M (Historical) PCP - General 05/21/13 Ticket Dispenser Changer Relationship Specialty Start Date End Date HoyNoamAbdifatah M (Historical) PCP - General 05/21/13 Inactive [...] 4 mg, ORAL, ONCE, 1 dose, On Emg 04/13/23 at 0830 Given 04/13/2023 10:36 AM [...] BE BASED ON THE PRIMARY CLINICAL RECORDS. [facility]. provides no warranty or guarantee of the accuracy or completeness of information in this document.
--- NOTE | 2023-11-26 11:09 | ED_ITS ---
HPI HPI - General Adult General Chief complaint: Headache Stated complaint: HEADACHE Time Seen by Provider: 11/26/23 11:07 Source: patient Mode of arrival: walk-in History of Present Illness HPI narrative: Patient presented to the emergency department for evaluation of headache. Patient states that she has had headache for the last 2 days. Has a history of migraines, states this feels the same. States its behind both her eyes, up in her forehead, wraps around both sides into the back of her neck. Does not have any pain when she moves the head, is not having any difficulty tucking her chin down to her chest. Has had no neck pain. No blurry vision, double vision. States that she has not had a migraine in the last couple months. Has medication at home to take for breakthrough's, but she has been having nausea and vomiting with this migraine which have been cerebral once in a while, so she has not been able to keep her medications down. States is not the first or worst headache she is ever having, has had headaches that feel the exact same, this feels like her old migraines. No other complaints at this time Related Data Home Medications ?Medication ?Instructions ?Recorded ?Confirmed baclofen 10 mg tablet 10 mg PO TID spasms 07/20/22 08/16/23 diazepam 10 mg tablet 5 mg PO QID PRN seizures 07/20/22 08/16/23 epinephrine 0.3 mg/0.3 mL 0.3 mg IM Q10M PRN anaphylaxis 07/20/22 08/16/23 injection, auto-injector diphenhydramine HCl 25 mg capsule 75 mg PO Q6H PRN migraine headache 01/26/23 08/16/23 (Benadryl) trazodone 300 mg tablet 300 mg PO .qhs 03/03/23 08/16/23 erenumab-aooe 70 mg/mL 70 mg subcut ONCE PRN migraine 04/27/23 08/16/23 subcutaneous auto-injector headache (Aimovig Autoinjector) lithium carbonate 300 mg tablet 600 mg PO Q12H 04/27/23 08/16/23 albuterol sulfate 90 mcg/actuation 2 puff inhalation Q4H PRN 08/16/23 08/16/23 aerosol inhaler shortness of breath or wheezing estradiol 1 mg tablet 1 mg PO QAM 08/16/23 08/16/23 lamotrigine 150 mg tablet 150 mg PO BID 08/16/23 08/16/23 magnesium oxide 400 mg (241.3 mg 400 mg PO .qhs 08/16/23 08/16/23 magnesium) tablet promethazine 12.5 mg tablet 12.5 mg PO Q6H PRN nausea and 08/16/23 08/16/23 vomiting vilazodone 40 mg tablet 40 mg PO DAILY 08/16/23 08/16/23 zolmitriptan 5 mg nasal spray 1 spray intranasal Q2H PRN headache 08/16/23 08/16/23 Previous Rx's ?Medication ?Instructions ?Recorded ketorolac 10 mg tablet 10 mg PO Q8H PRN pain 2 days #6 05/13/23 tabs Allergies Allergy/AdvReac Type Severity Reaction Status Date / Time dihydroergotamine Allergy Unknown Verified 08/16/23 08:30 vortioxetine Allergy Unknown Verified 08/16/23 08:30 buspirone Allergy Hives Verified 08/16/23 08:30 carbamazepine Allergy Unknown Verified 08/16/23 08:30 levetiracetam [From Keppra] Allergy ITCHING Verified 08/16/23 08:30 azithromycin [From Zithromax] AdvReac Intermediate Hives Verified 08/16/23 08:30 bee venom protein (honey bee) AdvReac Intermediate Hives Verified 08/16/23 08:30 metoclopramide [From Reglan] AdvReac Intermediate panic Verified 08/16/23 08:30 adhesive tape AdvReac Mild Rash Verified 08/16/23 08:30 cephalexin [From Keflex] AdvReac Mild Hives Verified 08/16/23 08:30 dextromethorphan AdvReac Mild Unknown Verified 08/16/23 08:30 [From [place] [facility]] pyrilamine [From [place] [facility]] AdvReac Mild Unknown Verified 08/16/23 08:30 propranolol AdvReac Hives Verified 08/16/23 08:30 Opioid HPI Opioid Management Most Recent Opioid Data: Last Pain Scale 6 11/26/23 11:46 Last ORT Total Score 0 08/16/23 14:51 Last ORT Risk Category Low Risk 08/16/23 14:51 Ur Phencyclidine Scrn Negative (NEGATIVE) 08/16/23 15:15 Review of Systems ROS Narrative Negative unless otherwise stated in the HPI [facility] Medical History (Updated 11/26/23 @ 12:00 by Aleksandar Taylor MD) Chronic pain disorder ?G89.4 - Chronic pain syndrome (ICD-10) Migraine ?G43.909 - Migraine, unspecified, not intractable, without status migrainosus (ICD-10) Seizure disorder ?G40.909 - Epilepsy, unspecified, not intractable, without status epilepticus (ICD-10) Bipolar disorder ?F31.9 - Bipolar disorder, unspecified (ICD-10) Pelvic pain ?R10.2 - Pelvic and perineal pain (ICD-10) Bilateral occipital neuralgia ?M54.81 - Occipital neuralgia (ICD-10) Combative behavior ?R46.89 - Other symptoms and signs involving appearance and behavior (ICD-10) PCOS (polycystic ovarian syndrome) ?E28.2 - Polycystic ovarian syndrome (ICD-10) Mitral valve prolapse ?I34.1 - Nonrheumatic mitral (valve) prolapse (ICD-10) GERD (gastroesophageal reflux disease) ?K21.9 - Gastro-esophageal reflux disease without esophagitis (ICD-10) Depression ?F32.A - Depression, unspecified (ICD-10) Blood in urine ?R31.9 - Hematuria, unspecified (ICD-10) Acne ?L70.9 - Acne, unspecified (ICD-10) Dyspareunia Brain mass ?G93.89 - Other specified disorders of brain (ICD-10) Kidney stones ?N20.0 - Calculus of kidney (ICD-10) COVID-19 ?U07.1 - COVID-19 (ICD-10) Bronchitis ?J40 - Bronchitis, not specified as acute or chronic (ICD-10) Asthma ?J45.909 - Unspecified asthma, uncomplicated (ICD-10) Stress incontinence ?N39.3 - Stress incontinence (female) (male) (ICD-10) Dysuria ?R30.0 - Dysuria (ICD-10) Anxiety ?F41.9 - Anxiety disorder, unspecified (ICD-10) Surgical History H/O laparoscopy (07/21/22) ?Z98.890 - Other specified postprocedural states (ICD-10) S/P RAVI-BSO ?Z90.710 - Acquired absence of both cervix and uterus (ICD-10) ?Z90.722 - Acquired absence of ovaries, bilateral (ICD-10) ?Z90.79 - Acquired absence of other genital organ(s) (ICD-10) Hx laparoscopic cholecystectomy ?Z90.49 - Acquired absence of other specified parts of digestive tract (ICD- 10) H/O: ?Z98.891 - History of uterine scar from previous surgery (ICD-10) History of appendectomy ?Z90.49 - Acquired absence of other specified parts of digestive tract (ICD- 10) Family History Other Acid reflux Acute renal disease Afib Chromosomal disorder Delayed developmental milestones Diabetes Family history of hypertension High cholesterol Neuro-irritability due to autonomic dysfunction 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 Lungs clear to auscultation without rhonchi, wheezes, rales Cardiac: Regular rate and rhythm, no edema, regular s1/s2, no m/g/r Neuro: Speech is clear and appropriate. Normal level of consciousness. Gait and coordination are normal. 5/5 strength in all extremities. Constitutional Vital Signs, click to edit/add: Last Vital Signs Temp 98.1 F 11/26/23 10:56 Pulse 75 11/26/23 10:56 Resp 16 11/26/23 10:56 BP 148/92 H 11/26/23 10:56 Pulse Ox 97 11/26/23 10:56 O2 Del Method Room Air 11/26/23 10:56 Course Vital Signs Vital signs: Vital Signs Temperature 98.1 F 11/26/23 10:56 Pulse Rate 75 11/26/23 10:56 Respiratory Rate 16 11/26/23 10:56 Blood Pressure 148/92 H 11/26/23 10:56 Pulse Oximetry 97 11/26/23 10:56 Oxygen Delivery Method Room Air 11/26/23 10:56 Temperature 98.1 F 11/26/23 10:56 Pulse Rate 75 11/26/23 10:56 Respiratory Rate 16 11/26/23 10:56 Blood Pressure 148/92 H 11/26/23 10:56 Pulse Oximetry 97 11/26/23 10:56 Oxygen Delivery Method Room Air 11/26/23 10:56 Medical Decision Making MDM Narrative Medical decision making narrative: MDM Patient with history as above presented with headache. History obtained from patient. Patient was nontoxic, stable. Ambulatory. Exam as above. Reviewed external records. Differential diagnosis considered. Overall presentation is consistent with headache 1201 patient was reevaluated, states her headache is completely resolved she would like to go home. Pt who presents for headache. Patient on exam, was well appearing and no distress. On exam was completely neuro intact without acute deficits. Exam and history at this time do not suggest meningitis, sub-arachnoid hemorrhage, intra- cranial mass, stroke, infection or acute intra-cranial process. Given radiation risk and benign exam, CT imaging has been deferred. Although, should patient continue to have persistent headaches, may warrant an outpatient MRI. Patient at this time stable for close PCP follow up. Advanced guidance has been given. Vss, pex is benign at this time. Pt to fu with pcp 1-2 days for reeval, rter should sx worsen, persist or become worrysome in any way. Pt expressed understanding and agreement with plan of care at this time. Will fu as planned. Pt stable for discharge. Medical Records Medical records reviewed: Yes I reviewed the patient's medical records Discharge Plan Discharge Chief Complaint: Headache Clinical Impression: Headache Patient Disposition: Home, Self-Care Time of Disposition Decision: 12:00 Condition: Good Prescriptions / Home Meds: No Action baclofen 10 mg tablet 10 mg PO TID diazepam 10 mg tablet 5 mg PO QID PRN (Reason: seizures) epinephrine 0.3 mg/0.3 mL auto-injector 0.3 mg IM Q10M PRN (Reason: anaphylaxis) Rx Instructions: for 2 doses trazodone 300 mg tablet 300 mg PO .qhs Aimovig Autoinjector 70 mg/mL auto-injector 70 mg SUBCUT ONCE PRN (Reason: migraine headache) lithium carbonate 300 mg tablet 600 mg PO Q12H ketorolac 10 mg tablet 10 mg PO Q8H PRN (Reason: pain) 2 Days Qty: 6 0RF albuterol sulfate 90 mcg/actuation HFA aerosol inhaler 2 puff INHALATION Q4H PRN (Reason: shortness of breath or wheezing) estradiol 1 mg tablet 1 mg PO QAM lamotrigine 150 mg tablet 150 mg PO BID magnesium oxide 400 mg (241.3 mg magnesium) tablet 400 mg PO .qhs promethazine 12.5 mg tablet 12.5 mg PO Q6H PRN (Reason: nausea and vomiting) vilazodone 40 mg tablet 40 mg PO DAILY zolmitriptan 5 mg spray,non-aerosol 1 spray INTRANASAL Q2H PRN (Reason: headache) Rx Instructions: May repeat once if needed after =2 hours diphenhydramine HCl [Benadryl] 25 mg capsule 75 mg PO Q6H PRN (Reason: migraine headache) Print Language: [place] Instructions: Acute Headache (DC) Additional Instructions: Follow-up with your PCP in the next 1 to 2 days. Return to the emergency department should symptoms worsen or become worrisome in any way. Referrals: Lamont Blair MD [Primary Care Provider] - 1 week
[2023-11-26] MEDS: METHYLPREDNISOLONE SOD SUCC PF 125 MG/2 ML VIAL IVP (11:23)
[2023-11-26] MEDS: DIPHENHYDRAMINE HCL 50 MG/ML VIAL IV (11:23)
[2023-11-26] MEDS: PROCHLORPERAZINE 10 MG/2 ML VIAL IV (11:23)
[2023-11-26] MEDS: KETOROLAC TROMETHAMINE 30 MG/ML VIAL 15 MG IVP (11:23)
[2023-11-26 12:13] VITALS: BP 136/88; PULSE 86; O2SAT 98
== END 2023-11-26 12:14 | disposition home or self-care (01) ==
PROVIDERS: Emergency Provider Emergency Medicine; PCP Family Medicine
DX: R51.9 Headache, unspecified (principal)
CPT/HCPCS: 96374; 96375; 99284; J0780; J1200; J1885; J2919

== ENCOUNTER 2023-12-11 13:57 | Emergency (ER) | payer OTHER, SELFPAY ==
[2023-12-11 13:59] VITALS: BP 136/61; PULSE 79; TEMP 36.7; O2SAT 98; BMI 49.1
--- NOTE | 2023-12-11 14:08 | XR_ITS ---
The [address] [address] Patient Name: MARGARET PLATT MRN: [id number] date: 1995 Sex: F Assigned Patient Location: ER Current Patient Location: ER Accession/Order Number: [id number] Exam Date: 12/11/2023 14:10 Report Date: 12/11/2023 14:30 At the request of: LYNDSEY STEWART Procedure: XR chest 2V EXAMINATION: XR chest 2V HISTORY: cough COMPARISON: No relevant comparison available. TECHNIQUE: PA and lateral FINDINGS: LUNGS: No significant pulmonary parenchymal abnormalities. VASCULATURE: No increased pulmonary vasculature. PLEURA: No pneumothorax, effusion, or pleural thickening. CARDIAC: No cardiomegaly or cardiac silhouette abnormality. MEDIASTINUM: No visible mass or adenopathy. BONES: No fracture or visible bone lesion. OTHER: Negative. XR/XR chest 2V IMPRESSION: No acute cardiopulmonary process Electronically authenticated by: NUZHAT BAUMANN Date: 12/11/2023 14:30
[2023-12-11 14:10] VITALS: O2SAT 98
--- OUTSIDE RECORDS SUMMARY | 2023-12-11 14:20 | XMS_ITS | CCD ---
Author Organization [facility] Care Team Providers Care Real Estate Development Manager Name Role Phone Abdifatah Brady (Historical) Primary Care Provide r Unavailable Randells STEEL LAYOUT WORKER - PSYCHIATRIC MENTAL HEALTH NURSE, Angélica R Primary Care Provider SANDHYA ANGÉLICA Santiago Primary Care Unavailable VIELKA CHING Attending Unavailable Kuns STEEL LAYOUT WORKER - PSYCHIATRIC MENTAL HEALTH NURSE, Angélica Santiago Primary Care Provider LUCILA MOTA Attending Unavailable PAYKINGS Referring Unavailable SANDHYA ANGÉLICA Pamela Primary Care Unavailable LUCILA MOTA Admitting Unavailable Abdifatah Brady (Historical) Primary Care Provide r Unavailable KRISTOFER BURCIAGA Attending Unavailab le Zay BLAS R Referring Unavailable Abdifatah Brady (Historical) Primary Care [...] Care Unavailable DIAB ., LUH Admitting Unavailable SAY, MANJINDER Attending Unavailable SAY, MANJINDER Consulting Unavailable SAY, MANJINEDR Admitting Unavailable LAURITA, DR SPENSER Garcia Primary Care Unavailable JEFFERSON .MARY Consulting Unavaildeshaun e ANASTASIA, DR GOMEZ Primary Care Unavailable PAY ., DR SOLORIO Admitting Unavailable PAY ., DR SOLORIO Attending Unavailable LEONARDO ., DR GUTIERREZ Consulting Unavailable LEONARDO ., DR GUTIERREZ Admitting Unavailable LEONARDO ., DR GUTIERREZ Attending Unavailable REQUEST, DR RM LISTED Primary Care Unavaila SUKHDEEP Centeno Attending Unavailable SUKHDEEP DOCKERY Admitting Unavailable KUNKrupa, DR ANGÉLICA Santiago Primary Care Unavailable GRECHNY ., MARY WHITNEY Consulting Unavaildeshaun MCMAHOND, JASS Consulting Unavailable SUKHDEEP DOCKERY Attending Unavailable KUNS, DR ANGÉLICA Santiago Primary Care Unavailable SUKHDEEP DOCKERY Admitting Unavailable HAY ., DR HARMAN Consulting Unavailable SUKHDEEP DOCKERY Consulting Unavailable NABILA, TONY Consulting Unavailable FAWWAD, LEW H Admitting Unavailable FAWWAD, LEW H Attending Unavailable ZISYDNIE, DR LOPEZ Santiago Consulting Unavailable REQUEST, DR NONE LISTED Primary Care Unavaila ble PAY ., DR SOLORIO Consulting Unavailable SAY, MANJINDER Consulting Unavailable FAWWAD, LEW H Consulting Unavailable SAY, MANJINDER Admitting Unavailable SAY, MANJINDER Attending Unavailable SAY, MANJINDER Consulting Unavailable KUNS, DR ANGÉLICA Santiago Primary Care Unavailable SAY, MANJINDER Attending Unavailable SAY, MANJINDER Consulting Unavailable REQUEST, DR NONE LISTED Primary Care Unavaila ble SAY, MANJINDER Admitting Unavailable PATRICIA WALSH Consulting Unavailable [facility] [place] DR GOMEZ Primary Care Unavailable HAY ., DR HARMAN Attending Unavailable HAY ., DR HARMAN Admitting Unavailable NEWATIA, NICHOLAS Consulting Unavailable UNLU, SINDY Consulting Unavailable LEONARDO ., DR GUTIERREZ Admitting Unavailable LEONARDO ., DR GUTIERREZ Consulting Unavailable [facility] Primary Care Unavailable LEONARDO ., DR GUTIERREZ Attending Unavailable KUNS, DR ANGÉLICA Santiago Primary Care Unavailable LEONARDO ., DR GUTIERREZ Admitting Unavailable LEONARDO ., DR GUTIERREZ Attending Unavailable LEONARDO ., DR GUTIERREZ Consulting Unavailable LEONARDO ., DR GUTIERREZ Admitting Unavailable LEONARDO ., DR GUTIERREZ Attending Unavailable NADERER, DR SPENSER Garcia Primary Care Unavailable [facility] Primary Care Unavailable HAY ., [...] Practitioner Unavail able KRYSTIN HERNADEZ Consulting Unavailable KLEBER FAULKNER Consulting Unavailable SHARDA COBURN Consulting Unavailable ALECIA ., DENNIS Admitting Unavailable ALECIA ., DENNIS Attending Unavailable MISGilson, DR GOMEZ Primary Care Unavailable HAY ., DR HARMAN Consulting Unavailable RIZZOANKUR WHITTEN Consulting Unavailable ALECIA ., DENNIS Consulting Unavailable [...] Brady (Historical) Primary Care Provide r Unavailable ZAY BLAS Attending Unavailable LEONARDO, ZAY Attending Unavailable NADSPENSER JENSEN Attending Unavailable LEONARDOZAY Attending Unavailable ISRAELWSHAIKH TY Attending Unavailable LEONARDOZAY Attending Unavailable LEONARDO, ZAY Attending Unavailable NADERESPENSER Santiago Attending Unavailable NADERESPENSER Santiago Attending Unavailable LEONARDO, ZAY Attending Unavailable Ramsey Maloney Admitting Unavailab le Ramsey Maloney Attending Unavailab le NON STAFF Primary Care Unavailable CURTIS LEPE Attending Unavailable BIDDLECOM, SUZAN Referring Unavailable GREENLOGAN Attending Unavailable BIDDLECOM, SUZAN Referring Unavailable BIDDLECOM, SUZAN Attending Unavailable BIDDLECOM, SUZAN Referring Unavailable BIDDLECOM, SUZAN Attending Unavailable BIDDLECOM, SUZAN Referring Unavailable GREENCAMERONI Attending Unavailable BIDDLECOM, SUZAN Attending Unavailable GREEN, CAMERONI Attending Unavailable ОЛЬГА AGUILAR Attending Unavailable GREEN, KOLI Referring Unavailable GREEN, KOLI Referring Unavailable GREEN, KOLI Attending Unavailable GREEN, KOLI Referring Unavailable Allergies Allergy Classification Reported Allergen(s) Allergy Type Date of Onset Reaction(s) Facility Anti-Epileptic Agents (1 source) levETIRAcetam Drug Allergy 11-12-19 23 Itching [facility] Work Phone: Cephalosporins (antibiotic) (1 source) Cephalexin Drug Allergy 12-04-19 22 Rash [facility] Dextromethorphan / Pyrilamine (1 source) Dextromethorphan / Pyrilamine Drug Allergy 01-08-20 [facility] Work Phone: Dihydroergotamine (1 source) Dihydroergotamine Drug Allergy 07-28-19 23 Intolerance [facility] DOPamine Antagonists (1 source) Metoclopramide Drug Allergy 12-04-19 22 Intolerance [facility] Macrolides (antibiotic) (1 source) Azithromycin Drug Allergy 12-04-19 Other: See Comments [facility] vortioxetine (1 source) vortioxetine Drug Allergy 08-07-19 [facility] (20 sources) Azithromycin; Translations: [AZITHROMYCIN] Drug Allergy 12-25-19 21 Hives, Other: See Comments [facility] (2 sources) carBAMazepine Drug Allergy 12-25-19 21 Other (See Comments) [facility] (20 sources) Cephalexin; Translations: [CEPHALEXIN] Drug Allergy 12-25-19 21 Hives, Rash [facility] (20 sources) Metoclopramide; Translations: [METOCLOPRAMIDE] Drug Allergy 12-25-19 21 Hives, Intolerance [facility] (2 sources) Propranolol Drug Allergy 12-25-19 21 Hives, Other (See Comments) [facility] (20 sources) Adhesive Tape-Silicones; Translations: [ADHESIVE TAPE-SILICONES] Drug Allergy 12-04-19 22 [facility] (20 sources) Dextromethorphan / Pyrilamine; Translations: [PYRILAMINE-DEXTROME THORPHAN] Drug Allergy 01-08-20 [facility] Work Phone: (20 sources) vortioxetine; Translations: [VORTIOXETINE] Drug Allergy 08-07-19 [facility] Work Phone: (20 sources) Dihydroergotamine; Translations: [DIHYDROERGOTAMINE] Drug Allergy 07-28-19 23 Intolerance [facility] (1 source) Azithromycin Drug Allergy The [facility] (1 source) bee venom Drug allergy (disorder) [facility] (1 source) Cephalexin Drug Allergy [facility] (1 source) Desonide Drug Allergy [facility] (1 source) Iothalamate Drug Allergy [facility] (1 source) Propranolol Drug Allergy 12-21-[address] [facility] (1 source) Reubens DM Drug allergy (disorder) 01-08-[address] [facility] (20 sources) levETIRAcetam; Translations: [LEVETIRACETAM] Drug Allergy 11-12-19 23 Itching [facility] Work Phone: (2 sources) Valproate; Translations: [DIVALPROEX] Drug Allergy 03-22-19 24 Hives [facility] Work Phone: Medications Current Medications Medication Drug Class(es) Dates Sig (Normalized) Sig (Original) Acetaminophen (2 sources) Start: 10-19-2021 acetaminophen (TYLENOL) tablet 1,000 mg Start: 10-19-2021 End: 10-19-2021 acetaminophen (TYLENOL) tabl et 650 mg onabotulinumtoxina 200 unt injection (20 sources) Acetylcholine Release Inhibitor Start: 10-12-2022 onabotulinum toxin type A 200 Units injection (BOTOX) chlorzoxazone 500 mg oral tablet (16 sources) Muscle Relaxant Start: 07-10-2023 End: 11-10-2023 [...] as needed (severe migraine). 20 tablet 5 11/10/2023 Active Start: 05-08-2022 End: 12-09-2022 take 1 [...] 2 mg lumateperone (CAPLYTA) 10.5 mg capsule (16 sources) take 1 capsule by mouth once [...] oral tablet (3 sources) Muscle Relaxant Start: End: take 1 tablet by mouth twice daily methocarbamol (ROBAXIN) 500 mg tablet Take 1 tablet by mouth twice daily. 60 tablet 2 09/12/2022 10/12/2022 Discontinued (Lack of Efficacy) Comment on above: Take 1 tablet by sami th twice daily. ondansetron (ZOFRAN-ODT) disintegrating tablet 4 mg (1 source) Start: ondansetron (ZOFRAN-ODT) disintegrating tablet 4 mg phentermine hydrochloride 37.5 mg oral tablet (18 sources) Sympathomimetic Amine Anorectic Start: Phentermine HCl [...] traZODone (DESYREL) 100 mg tablet 06/13/2022 Active ZOLMitriptan 5 mg/actuat nasal spray (20 sources) Serotonin-1b and Serotonin-1d Receptor Agonist Start: 03-17-2023 End: 11-10-2023 ZOLMitriptan (ZOMIG) 5 mg nasal spray Use 1 [place] in the nose as needed at onset of migraine headache. If symptoms persist or return, may repeat dose in other nostril after 2 hours. Maximum of 2 sprays per 24 hours 10 Each 5 11/10/2023 Active Start: 06-24-2022 ZOLMitriptan ( ZOMIG) 5 mg nasal spray Use 1 [place] in the nose as needed at onset of migraine headache. If symptoms persist or return, may repeat dose in other nostril after 2 hours. Maximum of 2 sprays per 24 hours 10 Each 2 06/24/2022 Active Start: 06-24-2022 take 1 spray(s) nasa l route every twenty-four hours as needed ZOLMitriptan (ZOMIG) 5 mg nasal spray Use 1 [place] in the nose as needed. SPRAY IN 1 NOSTRIL AT ONSET OF MIGRAINE HEADACHE. If symptoms persist or return, may repeat dose after 2 hours. Maximum: 5 mg/dose; 10 mg per 24 hours 10 Each 2 06/24/2022 Active Comment on above: Use 1 [place] in the n ose as needed. SPRAY IN 1 NOSTRIL AT ONSET OF MIGRAINE HEADACHE. If symptoms persist or return, may repeat dose after 2 hours. Maximum: 5 mg/dose; 10 mg per 24 hours Use 1 [place] in the n ose as needed at [...] (2 sources) Serotonin Reuptake Inhibitor End: 10-21-19 22 take 3 capsules by mouth once daily [...] tablet (6 sources) Anti-epileptic Agent Start: 10-24-19 22 gabapentin (NEURONTIN) 600 mg tablet End: 10-20-2021 [...] Serotonin-3 Receptor Antagonist Start: 10-13-19 End: 10-13-19 8 mg, INTRAVENOUS, EVERY 1 HOUR NEEDED, [...] a day as needed. polyethylene glycol 3350 37231 mg powder for oral solution (1 source) [...] End: 04-12-2023 vilazodone (VIIBRYD) 20 mg tablet Problems Active Problems Problem Classification Problem Date [...] 08-14-2021 Episodic Other aftercare (1 source) Other authorization rep (current) drug therapy; Translations: [OTH [facility] CURRENT DRUG THERAPY] Onset: 06-22-2022 Episodic Other [...] Test Name Value Interpretation Reference Range Facility [facility] 09-19-2023 CNOV Office Visit ([facility]) ---- CONI NICHOLSON ([id number]) 1995 F Date Time Provider Department 09/19/23 2:30 PM LOGAN BARTH [facility] During your visit today, we recorded the following information about you: Temperature Pulse Blood pressure Weight 99.1 degrees 80/minute 115/81 118.8 kg Height 1.584 m Logan Barth APRN.CNP 09/19/2023 3:12 PM Signed Outpatient Headache Clinic [...] XL, Qudexy) Anti-Depressant and Antipsychotic Amitriptyline (Elavil) [place] (Eskalith, Lithobid) Nortriptyline (Pamelor, Aventyl) Anti-Migraine Dihydroergotamine [...] ZOLMitriptan (ZOMIG) 5 mg nasal sprayUse 1 [place] in the nose as needed at onset [...] these with the patient: yes Logan Barth APRN.[facility] HEADACHE SCORES: 03/22/2023 07/10/2023 09/19/2023 Headache Questions ER visits since last office visit: 6 8 6 Hospital stays since last office visit 2 1 Limited ADL (more content not included)... Normal [facility] CNOVon 08-18-2023 CNOV Office Visit [facility]) ---- CONI NICHOLSON ([id number]) 1995 F Date Time Provider Department 08/18/23 9:30 AM CURTIS LEPE [facility] During your visit today, we [...] to follow-up with epilepsy clinic -Follow-up with [facility] in 1 month Curtis Lepe PA-C Headache Section [facility] August 18, 2023 Curtis Lepe PA-C 08/18/2023 2:39 PM Signed You received a greater occipital nerve block (GONB) today You may feel sore tomorrow at the site of the injection. You may use heat or ice for discomfort and gentle stretching. This should resolve in 24-36 hours. Greater Occipital Nerve Block (GONB) Article in [place] [employer] Journal By: Molina Barraza MD Many patients with chronic headache report that their (more content not included)... Normal [facility] CNOVon 04-14-2023 CNOV Office Visit ([facility]) ---- CONI NICHOLSON ([id number]) 1995 F Date Time Provider Department 04/14/23 [...] ZOLMitriptan (ZOMIG) 5 mg nasal sprayUse 1 [place] in the nose as needed at onset [...] and clear, coherent, and relevant. Short and penitentiary memory, cognition and general fund of knowledge [...] which included preparing to see the patient, [id number]-[id number] patient care, completing clinical documentation, obtaining and/or reviewing separately obtained history, performing a medically appropriate examination, counseling and educating the patient/family/critical care technician, and ordering medications, tests, or procedures. Suzan Driver APRN.[facility] Headache Section [facility] Suzan Driver APRN.FADY 04/14/2023 10:49 AM Signed Follow up/ discharge plan: f/u in 3 months Start aimovig this Aimovig Information Aimovig is a CGRP monoclonal antibody (MAB). CGRP is a substance in the brain that plays a chong role in causing migraine. Aimovig was specifically developed t (more content not included)... Normal [facility] CNPNon 04-13-2023 CNPN Telephone ([facility]) ---- CONI NICHOLSON ([id number]) 1995 F Date Time Provider Department 04/13/23 LOGAN BARTH [facility] During your visit today, we recorded the following information about you: Johana Cancino RN 04/13/2023 9:30 AM Signed Patient is currently receiving infusions for headache. She is interested in learning about Th[facility] program. Please schedule for evaluation. PRATIBHA Bliss [...] (ZOMIG) 5 mg nasal spray Use 1 [place] in the nose as needed at onset [...] Status:Closed by JOHANA CANCINO on 04/13/23 [facility] CNOVon 04-12-2023 CNOV Office Visit ([facility]) ---- CONI NICHOLSON ([id number]) 1995 F Date Time Provider Department 04/12/23 1:30 PM SUZAN DRIVER [facility] During your visit today, we recorded the following information about you: Suzan Driver APRN.PSYCHIATRIC MENTAL HEALTH NURSE 04/12/2023 11:52 AM Signed General Headache Education [...] much light. These can be obtained at [employer] or [employer]: see list below. 2. Limit use of acute treatments (zumx-vmk-myfbfjk medications, triptans, etc.) to no more than [...] and quiet environment. Relax and reduce stress. Ogocfsm0Zqall is a free catrina that can instruct you on some simple relaxtion and breathing techniques. Http://dineout is a free website that provides teaching [...] epilepsy i (more content not included)... [facility] 03[facility] CONI NICHOLSON ([id number]) 1995 F Date Time Provider Department 03/27/23 ANGELY COTTON [facility] During your visit today, we recorded the following information about you: Angely Cotton RN 03/27/2023 1:05 PM Signed [facility] received prescription(s) for Aimovig 70MG/ML auto-injectors . Benefits investigation was conducted, indicating that a prior authorization is required. PA was initiated and pending review through [employer]. All pertinent clinical information was submitted to insurance. [facility] Chong: [id number] Ordering Provider: Logan Barth APRN.Angely Schaefer RN [facility] P: , F: Angely Cotton RN 04/03/2023 12:43 PM Signed Ambulatory Pharmacy Prior Authorization Note Provider Intervention Required?: No- Pharmacy completed on your behalf. Rx Plan: Medicaid O ([facility]) Drug: Aimovig 70MG/ML auto-injectors Cover My Meds Chong: [id number] Determination: Approved Prior Authorization/Case #: n/a Prior [...] questions relating to this submission, please contact [facility] at [phone] Allergies As of Date: 03/27/2023 Noted Allergy [...] Date Reviewed: 03/23/2023 Reviewed by: Logan Barth APRN.PSYCHIATRIC MENTAL HEALTH NURSE - Fully Assessed Reason for Visit: Insurance Authorization [1693] Cmt: Aimovig 70MG/ML auto-injectors Prescriptions as of 04/03/2023 - Phentermine HCl 37.5 mg tablet take 1 tablet by mouth every morning before meals - erenumab-aooe (AIMOVIG AUTOINJECTOR) 70 mg/mL auto-injector Inject 1 mL subcutaneously once every month. Do not shake. - ZOLMitriptan (ZOMIG) 5 mg nasal spray Use 1 [place] in the nose as needed at onset [...] Encounter Status:Closed by ANGELY COTTON on 04/03/23 [facility] Veronica 03-21-2023 CNPN Telephone (NI[facility]) ---- CONI NICHOLSON ([id number]) 1995 F Date Time Provider Department 03/21/23 [...] Date Reviewed: 12/12/2022 Reviewed by: Logan Barth APRN.PSYCHIATRIC MENTAL HEALTH NURSE - Fully Assessed Reason for Visit: Patient Request [1306] Cmt: Headache infusions Prescriptions as of 03/21/2023 - ZOLMitriptan (ZOMIG) 5 mg nasal spray Use 1 [place] in the nose as needed at onset [...] Encounter Status:Closed by MENDOZA DOOLEY on 03/21/23 [facility] Veronica 12-13-2022 CNPN Telephone ([facility]) ---- CONI NICHOLSON ([id number]) 1995 F Date Time Provider Department 12/13/22 LOGAN BARTH [facility] During your visit today, we recorded [...] Date Reviewed: 12/12/2022 Reviewed by: Logan Barth APRN.PSYCHIATRIC MENTAL HEALTH NURSE - Fully Assessed Prescriptions as of 12/13/2022 [...] (ZOMIG) 5 mg nasal spray Use 1 [place] in the nose as needed at onset [...] Encounter Status:Closed [facility] CONI NICHOLSON ([id number]) 1995 F Date Time Provider Department 12/13/22 LOGAN BARTH During your visit today, we recorded the following information about you: Mendoza Dooley 12/13/2022 2:27 PM Signed Called patient to schedule for 3 days of Non DHE IV infusions. She started she was currently driving and would call back to schedule Logan Barth APRN.PSYCHIATRIC MENTAL HEALTH NURSE P Headache Infusion Scheduling Pool; P C21 [...] Date Reviewed: 12/12/2022 Reviewed by: Logan Barth APRN.PSYCHIATRIC MENTAL HEALTH NURSE - Fully Assessed Reason for Visit: Infusion [...] (ZOMIG) 5 mg nasal spray Use 1 [place] in the nose as needed at onset [...] Status:Closed by MENDOZA DOOLEY on 12/13/22 [facility] BLOOD GASES BTYon 06-20-2022 02 MODE ROOM AIR Normal [facility] Comment on above: Performed By: #### B MP #### [facility] [address] [address] [address] Ibis Jimenez ALLENS TEST Positive [facility] Comment on above: Performed By: #### B MP #### [facility] [address] [address] [address] Ibis Jimenez Base excess Calc (Bld) [Moles/Vol] -1.6000 mmol/L Normal -2.0-2.0 [facility] Comment on above: Performed By: #### B MP #### [facility] [address] [address] [address] Ibis Jimenez BIPAP PRESSURE [facility] Comment on above: Performed By: #### B MP #### [facility] [address] [place] [address] Dr. Ibis Jimenez CPAP [facility] Comment on above: Performed By: #### B MP #### [facility] [address] [address] [address] Ibis Jimenez FIO2 [facility] Comment on above: Performed By: #### B MP #### [facility] [address] [address] [address] Ibis Jimenez HCO3 (Bld) [Moles/Vol] 23.8 mmol/L Normal 22.0-26.0 [facility] Comment on above: Performed By: #### B MP #### [facility] [address] [place] [address] Dr. Ibis Jimenez LPM [facility] Comment on above: Performed By: #### B MP #### [facility] [address] [address] [address] Ibis Jimenez MINUTE VOLUME Normal [facility] Comment on above: Performed By: #### B MP #### [facility] [address] [place] [address] Dr. Ibis Jimenez Oxygen (Bld) [Partial pressure] 75.5 mm[Hg] Critically low 80.0-100.0 [facility] Comment on above: Performed By: #### B MP #### [facility] [address] [address] [address] Ibis Jimenez Oxygen saturation in Blood 95.8 % Normal 95.0-100.0 [facility] Comment on above: Performed By: #### B MP #### [facility] [address] [address] [address] Ibis Jimenez PCO2 41.8 mmHg Normal 35.0-45.0 [facility] Comment on above: Performed By: #### B MP #### [facility] [address] [address] [address] Ibis Jimenez PEEP [facility] Comment on above: Performed By: #### B MP #### [facility] [address] [address] [address] Ibis Jimenez pH (Bld) 7.363 [pH] Normal 7.350-7.450 [facility] Comment on above: Performed By: #### B MP #### [facility] [address] [address] [address] Ibis Jimenez PIP [facility] Comment on above: Performed By: #### B MP #### [facility] [address] [address] [address] Ibis Jimenez PS [facility] Comment on above: Performed By: #### B MP #### [facility] [address] [address] [address] Ibis Jimenez PUNCTURE SITE LR [facility] Comment on above: Performed By: #### B MP #### [facility] [address] [address] [address] Ibis Jimenez RATE [facility] Comment on above: Performed By: #### B MP #### [facility] [address] [address] [address] Ibis Jimenez VENT MODE [facility] Comment on above: Performed By: #### B MP #### [facility] [address] [address] [address] Ibis Jimenez [facility] Comment on above: Performed By: #### B MP #### [facility] [address] [place] [address] Dr. Ibis Jimenez CBC AUTO DIFFon 06-20-2022 BASO # 0.0 103/ul Normal 0.0-0.1 [facility] Comment on above: Performed By: #### A CET, SALYC #### [facility] [address] [place] [address] Dr. Ibis Jimenez Basophils/100 WBC (Bld) 0.5 % Normal 0.2-2.0 [facility] Comment on above: Performed By: #### A CET, SALYC #### [facility] [address] [place] [address] Dr. Ibis Jimenez EO # 0.3 103/ul Normal 0.0-0.7 [facility] Comment on above: Performed By: #### A CET, SALYC #### [facility] [address] [place] [address] Dr. Ibis Jimenez Eosinophils/100 WBC (Bld) 4.2 % Normal 0.9-7.0 [facility] Comment on above: Performed By: #### A CET, SALYC #### [facility] [address] [place] [address] Dr. Ibis Jimenez Erythrocyte distribution width (RBC) [Ratio] 13.2 % Normal 11.0-15.0 [facility] Comment on above: Performed By: #### A CET, SALYC #### [facility] [address] [place] [address] Dr. Ibis Jimenez Hematocrit (Bld) [Volume fraction] 36.5 % Normal 36.0-48.0 [facility] Comment on above: Performed By: #### A CET, SALYC #### [facility] [address] [place] [address] Dr. Ibis Jimenez Hemoglobin (Bld) [Mass/Vol] 11.7 g/dL Critically low 12.0-16.0 [facility] Comment on above: Performed By: #### A CET, SALYC #### [facility] [address] [place] [address] Dr. Ibis Jimenez IG # 0.05 10e3/ul Critically high 0.00-0.03 [facility] Comment on above: Performed By: #### A CET, SALYC #### [facility] [address] [place] [address] Dr. Ibis Jimenez IG % 0.8 % Critically high 0.0-0.[address] [facility] Comment on above: Performed By: #### A CET, SALYC #### [facility] [address] [place] [address] Dr. Ibis Jimenez LYMPH # 1.7 103/ul Normal 1.2-3.8 [facility] Comment on above: Performed By: #### A CET, SALYC #### [facility] [address] [place] [address] Dr. Ibis Jimenez Lymphocytes/100 WBC (Bld) 26.9 % Normal 20.5-60.0 [facility] Comment on above: Performed By: #### A CET, SALYC #### [facility] [address] [place] [address] Dr. Ibis Jimenez MANUAL DIFF REQ NO Normal [facility] Comment on above: Performed By: #### A CET, SALYC #### [facility] [address] [place] [address] Dr. Ibis Jimenez MCH (RBC) [Entitic mass] 28.7 pg Normal 26.7-34.0 [facility] Comment on above: Performed By: #### A CET, SALYC #### [facility] [address] [place] [address] Dr. Ibis Jimenez MCHC (RBC) [Mass/Vol] 32.1 g/dL Normal 29.9-35.2 [facility] Comment on above: Performed By: #### A CET, SALYC #### [facility] [address] [place] [address] Dr. Ibis Jimenez MCV (RBC) [Entitic vol] 89.7 fL Normal 81.0-99.0 [facility] Comment on above: Performed By: #### A CET, SALYC #### [facility] [address] [place] [address] Dr. Ibis Jimenez MONO # 0.6 103/ul Normal 0.3-0.8 [facility] Comment on above: Performed By: #### A CET, SALYC #### [facility] [address] [place] [address] Dr. Ibis Jimenez Monocytes/100 WBC (Bld) 8.9 % Normal 1.7-12.0 [facility] Comment on above: Performed By: #### A CET, SALYC #### [facility] [address] [place] [address] Dr. Ibis Jimenez NEUT # 3.8 103/ul Normal 1.4-6.5 [facility] Comment on above: Performed By: #### A CET, SALYC #### [facility] [address] [place] [address] Dr. Ibis Jimenez Neutrophils/100 WBC (Bld) 58.7 % Normal 43.0-75.0 [facility] Comment on above: Performed By: #### A CET, SALYC #### [facility] [address] [place] [address] Dr. Ibis Jimenez Platelet mean volume (Bld) [Entitic vol] 9.3 fL Critically low 9.5-13.5 [facility] Comment on above: Performed By: #### A CET, SALYC #### [facility] [address] [place] [address] Dr. Ibis Jimenez PLT 188 103/ul Normal 150-[address] [facility] Comment on above: Performed By: #### A CET, SALYC #### [facility] [address] [place] [address] Dr. Ibis Jimenez RBC 4.07 106/ul Critically low 4.20-5.[address] [facility] Comment on above: Performed By: #### A CET, SALYC #### [facility] [address] [place] [address] Dr. Ibis Jimenez WBC 6.4 103/ul Normal 4.0-11.0 [facility] Comment on above: Performed By: #### A CET, SALYC #### [facility] [address] [address] [address] Ibis Jimenez DRUG SCREEN RAPID (URINE)on 06-20-2022 AMP Negative Normal NEGATIVE [facility] Comment on above: Performed By: #### B MP #### [facility] [address] [place] [address] Dr. Ibis Jimenez BAR Positive Abnormal NEGATIVE [facility] Comment on above: Performed By: #### B MP #### [facility] [address] [place] [address] Dr. Ibis Jimenez BUP Negative Normal NEGATIVE [facility] Comment on above: Performed By: #### B MP #### [facility] [address] [place] [address] Dr. Ibis Jimenez BZO Positive Abnormal NEGATIVE [facility] Comment on above: Performed By: #### B MP #### [facility] [address] [place] [address] Dr. Ibis Jimenez SEMAJ Negative Normal NEGATIVE [facility] Comment on above: Performed By: #### B MP #### [facility] [address] [place] [address] Dr. Ibis Jimenez CUT-OFFS SEE BELOW Normal [facility] Comment on above: Result Comment: AMP (Amphetamine): 500ng/mL, BAR (Barbituates): 200 ng/mL, BZO (Benzodiazepines): 150 ng/mL, BUP (Buprenorphine): 10 ng/mL, SEMAJ (Cocaine): 150 ng/mL, mAMP (Methamphetamine): 500 ng/mL, MTD (Methadone): 200 ng/mL, OPI (Opiates): 100 ng/mL, OXY (Oxycodone): 100 ng/mL, PCP (Phencyclidine): 25 ng/mL, PPX (Propoxyphene): 300 ng/mL, THC (Cannabinoids): 50 ng/mL, TCA (Trycyclic Antidepressants): 300 ng/mL Performed By: #### B MP #### [facility] [address] [place] [address] Dr. Ibis Jimenez DRUG CUT HEADER DRUG CLASS TEST SYSTEM CUT-OFF CONCENTRATIONS ARE FOLLOWS: Normal [facility] Comment on above: Performed By: #### B MP #### [facility] [address] [place] [address] Dr. Ibis Jimenez mAMP Negative Normal NEGATIVE [facility] Comment on above: Performed By: #### B MP #### [facility] [address] [address] [address] Ibis Jimenez MTD Negative Normal NEGATIVE [facility] Comment on above: Performed By: #### B MP #### [facility] [address] [place] [address] Dr. Ibis Jimenez OPI Negative Normal NEGATIVE [facility] Comment on above: Performed By: #### B MP #### [facility] [address] [place] [address] Dr. Ibis Jimenez OXY Negative Normal NEGATIVE [facility] Comment on above: Performed By: #### B MP #### [facility] [address] [place] [address] Dr. Ibis Jimenez PCP Negative Normal NEGATIVE [facility] Comment on above: Performed By: #### B MP #### [facility] [address] [place] [address] Dr. Ibis Jimenez PPX Negative Normal NEGATIVE [facility] Comment on above: Performed By: #### B MP #### [facility] [address] [place] [address] Dr. Ibis Jimenez TCA Positive Abnormal NEGATIVE [facility] Comment on above: Performed By: #### B MP #### [facility] [address] [place] [address] Dr. Ibis Jimenez THC Positive Abnormal NEGATIVE [facility] Comment on above: Performed By: #### B MP #### [facility] [address] [place] [address] Dr. Ibis Jimenez ER URINE PROFILEon 3 Bilirubin Ql (U) Negative Normal NEGATIVE [facility] Comment on above: Performed By: #### A CET, SALYC #### [facility] [address] [place] [address] Dr. Ibis Jimenez Clarity (U) CLEAR Normal CLEAR [facility] Comment on above: Performed By: #### A CET, SALYC #### [facility] [address] [place] [address] Dr. Ibis Jimenez Color (U) YELLOW Normal YELLOW [facility] Comment on above: Performed By: #### A CET, SALYC #### [facility] [address] [place] [address] Dr. Ibis Garcia micrscopic examination will be performed if indicated. Normal [facility] Comment on above: Performed By: #### A CET, SALYC #### [facility] [address] [place] [address] Dr. Ibis Jimenez Glucose Ql (U) Negative Normal NEGATIVE [facility] Comment on above: Performed By: #### A CET, SALYC #### [facility] [address] [place] [address] Dr. Ibis Jimenez Hemoglobin Ql (U) Negative Normal NEGATIVE [facility] Comment on above: Performed By: #### A CET, SALYC #### [facility] [address] [place] [address] Dr. Ibis Jimenez Ketones Ql (U) Negative Normal NEGATIVE [facility] Comment on above: Performed By: #### A CET, SALYC #### [facility] [address] [place] [address] Dr. Ibis Jimenez LEUKOCYTES Negative Normal NEGATIVE [facility] Comment on above: Performed By: #### A CET, SALYC #### [facility] [address] [place] [address] Dr. Ibis Jimenez Nitrite Ql (U) Negative Normal NEGATIVE [facility] Comment on above: Performed By: #### A CET, SALYC #### [facility] [address] [place] [address] Dr. Ibis Jimenez pH (U) 5.0 [pH] Normal 5-9 [facility] Comment on above: Performed By: #### A CET, SALYC #### [facility] [address] [place] [address] Dr. Ibis Jimenez SPEC GRAVITY >=1.030 Abnormal 1.005-<=1.02 5 [facility] Comment on above: Performed By: #### A CET, SALYC #### [facility] [address] [place] [address] Dr. Ibis Jimenez UA PROTEIN Negative Normal NEGATIVE/ TRACE [facility] Comment on above: Performed By: #### A CET, SALYC #### [facility] [address] [place] [address] Dr. Ibis Jimenez UR MICRO IND NOT INDICATED Normal [facility] Comment on above: Performed By: #### A CET, SALYC #### [facility] [address] [place] [address] Dr. Ibis Jimenez Urobilinogen Qn (U) 0.2 {Dinorah'U}/dL Normal 0.2 - 1. 0 [facility] Comment on above: Performed By: #### A CET, SALYC #### [facility] [address] [place] [address] Dr. Ibis Jimenez PROF CHEM 8 (BAS METB)on Anion gap [Moles/Vol] 13.1 mmol/L Normal [facility] Comment on above: Performed By: #### M DAVID #### [facility] [address] [place] [address] Dr. Ibis Jimenez Calcium [Mass/Vol] 8.3 mg/dL Critically low 8.5-10.[address] [facility] Comment on above: Performed By: #### M DAVID #### [facility] [address] [place] [address] Dr. Ibis Jimenez Chloride [Moles/Vol] 109 mmol/L Critically high 98-107 [facility] Comment on above: Performed By: #### M DAVID #### [facility] [address] [place] [address] Dr. Ibis Jimenez CO2 [Moles/Vol] 25.7 mmol/L Normal 21.0-32.0 [facility] Comment on above: Performed By: #### M DAVID #### [facility] [address] [place] [address] Dr. Ibis Jimenez Creatinine [Mass/Vol] 0.82 mg/dL Normal 0.55-1.02 [facility] Comment on above: Performed By: #### M DAVID #### [facility] [address] [address] [address] Ibis Jimenez EGFR-AF SAMOAN >60 Normal >=60 [facility] Comment on above: Performed By: #### M DAVID #### [facility] [address] [address] [address] Ibis Jimenez EGFR-NON AF SAMOAN >60 Normal >=60 [facility] Comment on above: Performed By: #### M DAVID #### [facility] [address] [address] [address] Ibis Jimenez Glucose [Mass/Vol] 95 mg/dL Normal 74-106 [facility] Comment on above: Performed By: #### M DAVID #### [facility] [address] [address] [address] Ibis Jimenez Potassium [Moles/Vol] 3.8 mmol/L Normal 3.5-5.1 [facility] Comment on above: Performed By: #### M DAVID #### [facility] [address] [address] [address] Ibis Jimenez Sodium [Moles/Vol] 144 mmol/L Normal 136-145 [facility] Comment on above: Performed By: #### M DAVID #### [facility] [address] [address] [address] Ibis Jimenez Urea nitrogen [Mass/Vol] 16.0 mg/dL Normal 7.0-18.0 [facility] Comment on above: Performed By: #### M DAVID #### [facility] [address] [address] [address] Ibis Jimenez Urea nitrogen/Creatinine [Mass ratio] 19.5 mg/mg Normal [facility] Comment on above: Performed By: #### M DAVID #### [facility] [address] [address] [address] Ibis Jimenez ACETAMINOPHENon 06-19-2022 Acetaminophen [Mass/Vol] ug/mL Critically low 10.0-30.0 [facility] Comment on above: Performed By: #### A KORI DAVIS #### [facility] [address] [address] [address] Ibis Jimenez DRUG SCREEN RAPID (URINE)on 06-19-2022 AMP Negative Normal NEGATIVE [facility] Comment on above: Performed By: #### M DAVID #### [facility] [address] [address] [address] Ibis Jimenez BAR Positive Abnormal NEGATIVE [facility] Comment on above: Performed By: #### M DAVID #### [facility] [address] [address] [address] Ibis Jimenez BUP Negative Normal NEGATIVE [facility] Comment on above: Performed By: #### M DAVID #### [facility] [address] [place] [address] Dr. Ibis Jimenez BZO Positive Abnormal NEGATIVE [facility] Comment on above: Performed By: #### M DAVID #### [facility] [address] [place] [address] Dr. Ibis Jimenez SEMAJ Negative Normal NEGATIVE [facility] Comment on above: Performed By: #### M DAVID #### [facility] [address] [address] [address] Ibis Jimenez CUT-OFFS SEE BELOW Normal [facility] Comment on above: Result Comment: AMP (Amphetamine): 500ng/mL, BAR (Barbituates): 200 ng/mL, BZO (Benzodiazepines): 150 ng/mL, BUP (Buprenorphine): 10 ng/mL, SEMAJ (Cocaine): 150 ng/mL, mAMP (Methamphetamine): 500 ng/mL, MTD (Methadone): 200 ng/mL, OPI (Opiates): 100 ng/mL, OXY (Oxycodone): 100 ng/mL, PCP (Phencyclidine): 25 ng/mL, PPX (Propoxyphene): 300 ng/mL, THC (Cannabinoids): 50 ng/mL, TCA (Trycyclic Antidepressants): 300 ng/mL Performed By: #### M DAVID #### [facility] [address] [place] [address] Dr. Ibis Jimenez DRUG CUT HEADER DRUG CLASS TEST SYSTEM CUT-OFF CONCENTRATIONS ARE FOLLOWS: Normal [facility] Comment on above: Performed By: #### M DAVID #### [facility] [address] [address] [address] Ibis Jimenez mAMP Negative Normal NEGATIVE [facility] Comment on above: Performed By: #### M DAVID #### [facility] [address] [address] [address] Ibis Jimenez MTD Negative Normal NEGATIVE [facility] Comment on above: Performed By: #### M DAVID #### [facility] [address] [address] [address] Ibis Jimenez OPI Positive Abnormal NEGATIVE [facility] Comment on above: Performed By: #### M DAVID #### [facility] [address] [address] [address] Ibis Jimenez OXY Negative Normal NEGATIVE [facility] Comment on above: Performed By: #### M DAVID #### [facility] [address] [address] [address] Ibis Jimenez PCP Negative Normal NEGATIVE [facility] Comment on above: Performed By: #### M DAVID #### [facility] [address] [address] [address] Ibis Jimenez PPX Negative Normal NEGATIVE [facility] Comment on above: Performed By: #### M DAVID #### [facility] [address] [address] [address] Ibis Jimenez TCA Negative Normal NEGATIVE [facility] Comment on above: Performed By: #### M DAVID #### [facility] [address] [address] [address] Ibis Jimenez THC Positive Abnormal NEGATIVE [facility] Comment on above: Performed By: #### M DAVID #### [facility] [address] [address] [address] Ibis Jimenez ER URINE PROFILEon 3 Bilirubin Ql (U) Negative Normal NEGATIVE [facility] Comment on above: Performed By: #### M DAVID #### [facility] [address] [place] [address] Dr. Ibis Jimenez Clarity (U) CLEAR Normal CLEAR [facility] Comment on above: Performed By: #### M DAVID #### [facility] [address] [address] [address] Ibis Jimenez Color (U) YELLOW Normal YELLOW [facility] Comment on above: Performed By: #### M DAVID #### [facility] [address] [place] [address] Dr. Ibis RODRIGUEZ A micrscopic examination will be performed if indicated. Normal [facility] Comment on above: Performed By: #### M DAVID #### [facility] [address] [place] [address] Dr. Ibis Jimenez Glucose Ql (U) Negative Normal NEGATIVE [facility] Comment on above: Performed By: #### M DAVID #### [facility] [address] [place] [address] Dr. Ibis Jimenez Hemoglobin Ql (U) TRACE-INTACT Abnormal NEGATIVE [facility] Comment on above: Performed By: #### M DAVID #### [facility] [address] [place] [address] Dr. Ibis Jimenez Ketones Ql (U) Negative Normal NEGATIVE [facility] Comment on above: Performed By: #### M DAVID #### [facility] [address] [place] [address] Dr. Ibis Jimenez LEUKOCYTES Negative Normal NEGATIVE [facility] Comment on above: Performed By: #### M DAVID #### [facility] [address] [place] [address] Dr. Ibis Jimenez Nitrite Ql (U) Negative Normal NEGATIVE [facility] Comment on above: Performed By: #### M DAVID #### [facility] [address] [place] [address] Dr. Ibis Jimenez pH (U) 6.0 [pH] Normal 5-9 [facility] Comment on above: Performed By: #### M DAVID #### [facility] [address] [place] [address] Dr. Ibis Jimenez Protein (U) [Mass/Vol] 30 mg/dL Abnormal NEGAT ADALGISA/ TRACE [facility] Comment on above: Performed By: #### M DAVID #### [facility] [address] [address] [address] Ibis Jimenez SPEC GRAVITY 1.025 Normal 1.005-<=1.02 5 [facility] Comment on above: Performed By: #### M DAVID #### [facility] [address] [address] [address] Ibis Jimenez UR MICRO IND INDICATED Normal [facility] Comment on above: Performed By: #### M DAVID #### [facility] [address] [address] [address] Ibis Jimenez Urobilinogen Qn (U) 0.2 {Dinorah'U}/dL Normal 0.2 - 1. 0 [facility] Comment on above: Performed By: #### M DAVID #### [facility] [address] [place] [address] Dr. Ibis Jimenez ETHANOL (BLD ALC)on 06-20-19 23 ALC NOTE NOTE: 80 mg/dl is the legal limit for a blood alcohol level Normal [facility] Comment on above: Performed By: #### A MM #### [facility] [address] [place] [address] Dr. Ibis Jimenez Ethanol [Mass/Vol] mg/dL Normal [facility] Comment on above: Performed By: #### A MM #### [facility] [address] [place] [address] Dr. Ibis Jimenez POINT OF CARE GLUCOSEon 05-23 Glucose [Mass/Vol] 88 mg/dL Normal 74-106 [facility] Comment on above: Performed By: #### C VDTBH #### [facility] [address] [place] [address] Dr. Ibis Jimenez URon 06-19-2022 , QUAL Negative Normal NEGATIVE [facility] Comment on above: Performed By: #### M DAVID #### [facility] [address] [address] [address] Ibis Jimenez PROF CHEM 8 (BAS METB)on Anion gap [Moles/Vol] 12.6 mmol/L Normal [facility] Comment on above: Performed By: #### A MM #### [facility] [address] [place] [address] Dr. Ibis Jimenez Calcium [Mass/Vol] 8.4 mg/dL Critically low 8.5-10.[address] [facility] Comment on above: Performed By: #### A MM #### [facility] [address] [address] [address] Ibis Jimenez Chloride [Moles/Vol] 107 mmol/L Normal 98-107 [facility] Comment on above: Performed By: #### A MM #### [facility] [address] [place] [address] Dr. Ibis Jimenez CO2 [Moles/Vol] 22.5 mmol/L Normal 21.0-32.0 [facility] Comment on above: Performed By: #### A MM #### [facility] [address] [place] [address] Dr. Ibis Jimenez Creatinine [Mass/Vol] 0.82 mg/dL Normal 0.55-1.02 [facility] Comment on above: Performed By: #### A MM #### [facility] [address] [place] [address] Dr. Ibis Jimenez EGFR-AF SAMOAN >60 Normal >=60 [facility] Comment on above: Performed By: #### A MM #### [facility] [address] [place] [address] Dr. Ibis Jimenez EGFR-NON AF SAMOAN >60 Normal >=60 [facility] Comment on above: Performed By: #### A MM #### [facility] [address] [place] [address] Dr. Ibis Jimenez Glucose [Mass/Vol] 87 mg/dL Normal 74-106 [facility] Comment on above: Performed By: #### A MM #### [facility] [address] [place] [address] Dr. Ibis Jimenez Potassium [Moles/Vol] 4.1 mmol/L Normal 3.5-5.1 [facility] Comment on above: Performed By: #### A MM #### [facility] [address] [address] [address] Ibis Jimenez Sodium [Moles/Vol] 138 mmol/L Normal 136-145 [facility] Comment on above: Performed By: #### A MM #### [facility] [address] [place] [address] Dr. Ibis Jimenez Urea nitrogen [Mass/Vol] 22.0 mg/dL Critically high 7.0-18.0 [facility] Comment on above: Performed By: #### A MM #### [facility] [address] [place] [address] Dr. Ibis Jimenez Urea nitrogen/Creatinine [Mass ratio] 26.8 mg/mg Normal [facility] Comment on above: Performed By: #### A MM #### [facility] [address] [place] [address] Dr. Ibis Jimenez SALICYLATEon 06-19-2022 SALICYLATE <2.8 Normal <=19.9 [facility] Comment on above: Performed By: #### A CET, SALYC #### [facility] [address] [place] [address] Dr. Ibis Jimenez URINE MICROSCOPIC ONLYon BACTERIA NONE SEEN Normal NONE SEEN [facility] Comment on above: Performed By: #### M DAVID #### [facility] [address] [place] [address] Dr. Ibis Jimenez Bacteria identified Cx Nom (U) NOT INDICATED Normal [facility] Comment on above: Performed By: #### M DAVID #### [facility] [address] [place] [address] Dr. Ibis Jimenez CAST SEEN Abnormal NONE SEEN [facility] Comment on above: Performed By: #### M DAVID #### [facility] [address] [place] [address] Dr. Ibis Jimenez Crystals LM Nom (Urine sed) NONE SEEN Normal NONE SEEN [facility] Comment on above: Performed By: #### M DAVID #### [facility] [address] [place] [address] Dr. Ibis Jimenez Epithelial cells LM Ql (Urine sed) MODERATE Abnormal NONE SEEN /RARE [facility] Comment on above: Performed By: #### M DAVID #### [facility] [address] [place] [address] Dr. Ibis Jimenez HYALINE CAST FEW Normal [facility] Comment on above: Performed By: #### M DAVID #### [facility] [address] [place] [address] Dr. Ibis Jimenez MUCOUS NONE SEEN Normal NONE SEEN [facility] Comment on above: Performed By: #### M DAVID #### [facility] [address] [place] [address] Dr. Ibis Jimenez RBC 2-5 Abnormal 0-2 [facility] Comment on above: Performed By: #### M DAVID #### [facility] [address] [place] [address] Dr. Ibis Jimenez WBC NONE SEEN Normal NONE SEEN [facility] Comment on above: Performed By: #### M DAVID #### [facility] [address] [place] [address] Dr. Ibis Jimenez CBC AUTO DIFFon 06-11-2022 BASO # 0.0 103/ul Normal 0.0-0.1 [facility] Comment on above: Performed By: #### C VDTBH #### [facility] [address] [place] [address] Dr. Ibis Jimenez Basophils/100 WBC (Bld) 0.3 % Normal 0.2-2.0 [facility] Comment on above: Performed By: #### C VDTBH #### [facility] [address] [place] [address] Dr. Ibis Jimenez EO # 0.0 103/ul Normal 0.0-0.7 [facility] Comment on above: Performed By: #### C VDTBH #### [facility] [address] [place] [address] Dr. Ibis Jimenez Eosinophils/100 WBC (Bld) 0.1 % Critically low 0.9-7.0 [facility] Comment on above: Performed By: #### C VDTBH #### [facility] [address] [place] [address] Dr. Ibis Jimenez Erythrocyte distribution width (RBC) [Ratio] 13.2 % Normal 11.0-15.0 [facility] Comment on above: Performed By: #### C VDTBH #### [facility] [address] [place] [address] Dr. Ibis Jimenez Hematocrit (Bld) [Volume fraction] 38.5 % Normal 36.0-48.0 [facility] Comment on above: Performed By: #### C VDTBH #### [facility] [address] [place] [address] Dr. Ibis Jimenez Hemoglobin (Bld) [Mass/Vol] 12.4 g/dL Normal 12.0-16.0 [facility] Comment on above: Performed By: #### C VDTBH #### [facility] [address] [place] [address] Dr. Ibis Jimenez IG # 0.20 10e3/ul Critically high 0.00-0.03 [facility] Comment on above: Performed By: #### C VDTBH #### [facility] [address] [place] [address] Dr. Ibis Jimenez IG % 1.8 % Critically high 0.0-0.[address] [facility] Comment on above: Performed By: #### C VDTBH #### [facility] [address] [place] [address] Dr. Ibis Jimenez LYMPH # 0.5 103/ul Critically low 1.2-3.8 [facility] Comment on above: Performed By: #### C VDTBH #### [facility] [address] [place] [address] Dr. Ibis Jimenez Lymphocytes/100 WBC (Bld) 4.6 % Critically low 20.5-60.0 [facility] Comment on above: Performed By: #### C VDTBH #### [facility] [address] [place] [address] Dr. Ibis Jimenez MANUAL DIFF REQ NO Normal [facility] Comment on above: Performed By: #### C VDTBH #### [facility] [address] [address] [address] Ibis Jimenez MCH (RBC) [Entitic mass] 28.2 pg Normal 26.7-34.0 [facility] Comment on above: Performed By: #### C VDTBH #### [facility] [address] [place] [address] Dr. Ibis Jimenez MCHC (RBC) [Mass/Vol] 32.2 g/dL Normal 29.9-35.2 [facility] Comment on above: Performed By: #### C VDTBH #### [facility] [address] [place] [address] Dr. Ibis Jimenez MCV (RBC) [Entitic vol] 87.5 fL Normal 81.0-99.0 [facility] Comment on above: Performed By: #### C VDTBH #### [facility] [address] [place] [address] Dr. Ibis Jimenez MONO # 0.1 103/ul Critically low 0.3-0.8 [facility] Comment on above: Performed By: #### C VDTBH #### [facility] [address] [place] [address] Dr. Ibis Jimenez Monocytes/100 WBC (Bld) 1.3 % Critically low 1.7-12.0 [facility] Comment on above: Performed By: #### C VDTBH #### [facility] [address] [place] [address] Dr. Ibis Jimenez NEUT # 10.1 103/ul Critically high 1.4-6.5 [facility] Comment on above: Performed By: #### C VDTBH #### [facility] [address] [place] [address] Dr. Ibis Jimenez Neutrophils/100 WBC (Bld) 91.9 % Critically high 43.0-75.0 [facility] Comment on above: Performed By: #### C VDTBH #### [facility] [address] [place] [address] Dr. Ibis Jimenez Platelet mean volume (Bld) [Entitic vol] 9.1 fL Critically low 9.5-13.5 [facility] Comment on above: Performed By: #### C VDTBH #### [facility] [address] [place] [address] Dr. Ibis Jimenez PLT 240 103/ul Normal 150-450 [facility] Comment on above: Performed By: #### C VDTBH #### [facility] [address] [place] [address] Dr. Ibis Jimenez RBC 4.40 106/ul Normal 4.20-5.40 [facility] Comment on above: Performed By: #### C VDTBH #### [facility] [address] [place] [address] Dr. Ibis Jimenez WBC 11.0 103/ul Normal 4.0-11.0 [facility] Comment on above: Performed By: #### C VDTBH #### [facility] [address] [place] [address] Dr. Ibis Jimenez PROF 14(COMP METB)on 023 Albumin [Mass/Vol] 3.3 g/dL Critically low 3.4-5.[address] [facility] Comment on above: Performed By: #### B MP #### [facility] [address] [place] [address] Dr. Ibis Jimenez Albumin/Globulin [Mass ratio] 0.9 {ratio} Normal [facility] Comment on above: Performed By: #### B MP #### [facility] [address] [place] [address] Dr. Ibis Jimenez ALP [Catalytic activity/Vol] 63 U/L Normal 46-116 [facility] Comment on above: Performed By: #### B MP #### [facility] [address] [place] [address] Dr. Ibis Jimenez ALT [Catalytic activity/Vol] 32 U/L Normal 14-59 [facility] Comment on above: Performed By: #### B MP #### [facility] [address] [place] [address] Dr. Ibis Jimenez Anion gap [Moles/Vol] 12.9 mmol/L Normal [facility] Comment on above: Performed By: #### B MP #### [facility] [address] [address] [address] Ibis Jimenez AST [Catalytic activity/Vol] 14 U/L Critically low 15-37 [facility] Comment on above: Performed By: #### B MP #### [facility] [address] [address] [address] Ibis Jimenez Bilirubin [Mass/Vol] 0.2 mg/dL Normal 0.2-1.0 [facility] Comment on above: Performed By: #### B MP #### [facility] [address] [address] [address] Ibis Jimenez Calcium [Mass/Vol] 8.5 mg/dL Normal 8.5-10.1 [facility] Comment on above: Performed By: #### B MP #### [facility] [address] [address] [address] Ibis Jimenez Chloride [Moles/Vol] 106 mmol/L Normal 98-107 [facility] Comment on above: Performed By: #### B MP #### [facility] [address] [address] [address] Ibis Jimenez CO2 [Moles/Vol] 26.6 mmol/L Normal 21.0-32.0 [facility] Comment on above: Performed By: #### B MP #### [facility] [address] [address] [address] Ibis Jimenez Creatinine [Mass/Vol] 0.89 mg/dL Normal 0.55-1.02 [facility] Comment on above: Performed By: #### B MP #### [facility] [address] [address] [address] Ibis Jimenez EGFR-AF SAMOAN >60 Normal >=60 [facility] Comment on above: Performed By: #### B MP #### [facility] [address] [address] [address] Ibis Jimenez EGFR-NON AF SAMOAN >60 Normal >=60 [facility] Comment on above: Performed By: #### B MP #### [facility] [address] [address] [address] Ibis Jimenez Globulin (S) [Mass/Vol] 3.6 g/dL Normal [facility] Comment on above: Performed By: #### B MP #### [facility] [address] [address] [address] Ibis Jimenez Glucose [Mass/Vol] 134 mg/dL Critically high 74-106 [facility] Comment on above: Performed By: #### B MP #### [facility] [address] [address] [address] Ibis Jimenez Potassium [Moles/Vol] 4.5 mmol/L Normal 3.5-5.1 [facility] Comment on above: Performed By: #### B MP #### [facility] [address] [place] [address] Dr. Ibis Jimenez Protein [Mass/Vol] 6.9 g/dL Normal 6.4-8.2 [facility] Comment on above: Performed By: #### B MP #### [facility] [address] [place] [address] Dr. Ibis Jimenez Sodium [Moles/Vol] 141 mmol/L Normal 136-145 [facility] Comment on above: Performed By: #### B MP #### [facility] [address] [place] [address] Dr. Ibis Jimenez Urea nitrogen [Mass/Vol] 15.0 mg/dL Normal 7.0-18.0 [facility] Comment on above: Performed By: #### B MP #### [facility] [address] [place] [address] Dr. Ibis Jimenez Urea nitrogen/Creatinine [Mass ratio] 16.9 mg/mg Normal [facility] Comment on above: Performed By: #### B MP #### [facility] [address] [place] [address] HEAD WO CONon [...] by: NICHOLAS MARCUS Date: 2022-05-23 19:25 Normal [facility] CT LSPINE WO CONon [address] [facility] WO CON CT CERVICAL SPINE WITHOUT CONTRAST. [...] by: SINDY KING Date: 2022-05-23 19:41 Normal [facility] CT HEAD WO CONon 04-01-2022 CT HEAD [...] ROBIN IRBY Date: 2022-03-31 22:40 Normal [facility] Covid-19 PCR ([facility])on 03-23 SARS-CoV-2 (COVID-19) RNA SAURABH+probe Ql (Unsp spec) Not detected Normal NOT DETECTED [facility] Comment on above: Result Comment: When [...] for this test is supported by the [place] of [employer] and Human Service's declaration that [...] used). Performed By: #### C VDTB #### [facility] [address] [place] [address] Dr. Ibis Jimenez ER URINE PROFILEon 3 Bilirubin Ql (U) Negative Normal NEGATIVE [facility] Comment on above: Performed By: #### A CET, SALYC #### [facility] [address] [address] [address] Ibis Jimenez Clarity (U) CLEAR Normal CLEAR [facility] Comment on above: Performed By: #### A CET, SALYC #### [facility] [address] [place] [address] Dr. Ibis Jimenez Color (U) YELLOW Normal YELLOW [facility] Comment on above: Performed By: #### A CET, SALYC #### [facility] [address] [address] [address] Ibis RODRIGUEZ A micrscopic examination will be performed if indicated. Normal [facility] Comment on above: Performed By: #### A CET, SALYC #### [facility] [address] [place] [address] Dr. Ibis Jimenez Glucose Ql (U) Negative Normal NEGATIVE [facility] Comment on above: Performed By: #### A CET, SALYC #### [facility] [address] [place] [address] Dr. Ibis Jimenez Hemoglobin Ql (U) SMALL Abnormal NEGATIVE [facility] Comment on above: Performed By: #### A CET, SALYC #### [facility] [address] [place] [address] Dr. Ibis Jimenez Ketones Ql (U) Negative Normal NEGATIVE [facility] Comment on above: Performed By: #### A CET, SALYC #### [facility] [address] [place] [address] Dr. Ibis Jimenez LEUKOCYTES Negative Normal NEGATIVE [facility] Comment on above: Performed By: #### A CET, SALYC #### [facility] [address] [place] [address] Dr. Ibis Jimenez Nitrite Ql (U) Negative Normal NEGATIVE [facility] Comment on above: Performed By: #### A CET, SALYC #### [facility] [address] [place] [address] Dr. Ibis Jimenez pH (U) 5.5 [pH] Normal 5-[address] [facility] Comment on above: Performed By: #### A CET, SALYC #### [facility] [address] [place] [address] Dr. Ibis Jimenez SPEC GRAVITY >=1.030 Abnormal 1.005-<=1.02 5 [facility] Comment on above: Performed By: #### A CET, SALYC #### [facility] [address] [place] [address] Dr. Ibis Jimenez UA PROTEIN Negative Normal NEGATIVE/ TRACE [facility] Comment on above: Performed By: #### A CET, SALYC #### [facility] [address] [place] [address] Dr. Ibis Jimenez UR MICRO IND INDICATED Normal [facility] Comment on above: Performed By: #### A CET, SALYC #### [facility] [address] [place] [address] Dr. Ibis Jimenez Urobilinogen Qn (U) 0.2 {Dinorah'U}/dL Normal 0.2 - 1. 0 [facility] Comment on above: Performed By: #### A CET, SALYC #### [facility] [address] [place] [address] Dr. Ibis Jimenez INFLUENZA A AND B AGon 04-01 INFLUANEGH SEE BELOW Normal [facility] Comment on above: Result Comment: Nega tive for Flu A protein angiten. Infection due to Flu A cannot be ruled out. Flu A angiten in the sample may be below the detection limit of the test. Performed By: #### A MM #### [facility] [address] [place] [address] Dr. Ibis Jimenez INFLUBNEGH SEE BELOW Normal [facility] Comment on above: Result Comment: Nega tive for Flu B protein antigen. Infection due to Flu B cannot be ruled out. Flu B antigen in the sample may be below the detection limit of the test. Performed By: #### A MM #### [facility] [address] [place] [address] Dr. Ibis Jimenez INFLUENZA A AG Negative Normal NEGATIVE SEE COMMENT [facility] Comment on above: Performed By: #### A MM #### [facility] [address] [place] [address] Dr. Ibis Jimenez INFLUENZA B AG Negative Normal NEGATIVE SEE COMMENT [facility] Comment on above: Performed By: #### A MM #### [facility] [address] [place] [address] Dr. Ibis Jimenez LACTATE/LACTIC ACIDon 2022 Lactate [Moles/Vol] 1.9 mmol/L Normal 0.4-1.9 [facility] Comment on above: Performed By: #### L ACT #### [facility] [address] [place] [address] Dr. Ibis Jimenez URINE MICROSCOPIC ONLYon BACTERIA TRACE Abnormal NONE SEEN [facility] Comment on above: Performed By: #### A CET, SALYC #### [facility] [address] [place] [address] Dr. Ibis Jimenez Bacteria identified Cx Nom (U) NOT INDICATED Normal [facility] Comment on above: Performed By: #### A CET, SALYC #### [facility] [address] [place] [address] Dr. bIis Jimenez CAST NONE SEEN Normal NONE SEEN [facility] Comment on above: Performed By: #### A CET, SALYC #### [facility] [address] [place] [address] Dr. Ibis Jimenez Crystals LM Nom (Urine sed) NONE SEEN Normal NONE SEEN [facility] Comment on above: Performed By: #### A CET, SALYC #### [facility] [address] [place] [address] Dr. Ibis Jimenez Epithelial cells LM Ql (Urine sed) RARE Normal NONE SEEN /RARE [facility] Comment on above: Performed By: #### A CET, SALYC #### [facility] [address] [place] [address] Dr. Ibis Jimenez MUCOUS TRACE Abnormal NONE SEEN [facility] Comment on above: Performed By: #### A CET, SALYC #### [facility] [address] [place] [address] Dr. Ibis Jimenez RBC 0-2 Normal 0-[address] [facility] Comment on above: Performed By: #### A CET, SALYC #### [facility] [address] [place] [address] Dr. Ibis Jimenez WBC NONE SEEN Normal NONE SEEN [facility] Comment on above: Performed By: #### A CET, SALYC #### [facility] [address] [place] [address] Dr. Ibis Jimenez AMMONIAon 03-31-2022 Ammonia (P) [Moles/Vol] 31 umol/L Normal 11-32 [facility] Comment on above: Performed By: #### A MM #### [facility] [address] [place] [address] Dr. Ibis Jimenez CBC AUTO DIFFon 03-31-2022 BASO # 0.0 103/ul Normal 0.0-0.1 [facility] Comment on above: Performed By: #### A MM #### [facility] [address] [place] [address] Dr. Ibis Jimenez Basophils/100 WBC (Bld) 0.4 % Normal 0.2-2.0 [facility] Comment on above: Performed By: #### A MM #### [facility] [address] [place] [address] Dr. Ibis Jimenez EO # 0.5 103/ul Normal 0.0-0.7 [facility] Comment on above: Performed By: #### A MM #### [facility] [address] [place] [address] Dr. Ibis Jimenez Eosinophils/100 WBC (Bld) 6.4 % Normal 0.9-7.0 [facility] Comment on above: Performed By: #### A MM #### [facility] [address] [place] [address] Dr. Ibis Jimenez Erythrocyte distribution width (RBC) [Ratio] 12.8 % Normal 11.0-15.0 [facility] Comment on above: Performed By: #### A MM #### [facility] [address] [place] [address] Dr. Ibis Jimenez Hematocrit (Bld) [Volume fraction] 36.6 % Normal 36.0-48.0 [facility] Comment on above: Performed By: #### A MM #### [facility] [address] [place] [address] Dr. Ibis Jimenez Hemoglobin (Bld) [Mass/Vol] 12.5 g/dL Normal 12.0-16.[address] [facility] Comment on above: Performed By: #### A MM #### [facility] [address] [place] [address] Dr. Ibis Jimenez IG # 0.02 10e3/ul Normal 0.00-0.03 [facility] Comment on above: Performed By: #### A MM #### [facility] [address] [place] [address] Dr. Ibis Jimenez IG % 0.3 % Normal 0.0-0.5 [facility] Comment on above: Performed By: #### A MM #### [facility] [address] [place] [address] Dr. Ibis Jimenez LYMPH # 2.0 103/ul Normal 1.2-3.[address] [facility] Comment on above: Performed By: #### A MM #### [facility] [address] [place] [address] Dr. Ibis Jimenez Lymphocytes/100 WBC (Bld) 25.0 % Normal 20.5-60.0 [facility] Comment on above: Performed By: #### A MM #### [facility] [address] [place] [address] Dr. Ibis Jimneez MANUAL DIFF REQ NO Normal [facility] Comment on above: Performed By: #### A MM #### [facility] [address] [place] [address] Dr. Ibis Jimenez MCH (RBC) [Entitic mass] 29.5 pg Normal 26.7-34.[address] [facility] Comment on above: Performed By: #### A MM #### [facility] [address] [place] [address] Dr. Ibis Jimenez MCHC (RBC) [Mass/Vol] 34.2 g/dL Normal 29.9-35.[address] [facility] Comment on above: Performed By: #### A MM #### [facility] [address] [address] [address] Ibis Jimenez MCV (RBC) [Entitic vol] 86.3 fL Normal 81.0-99.0 [facility] Comment on above: Performed By: #### A MM #### [facility] [address] [address] [address] Ibis Jimenez MONO # 0.4 103/ul Normal 0.3-0.8 [facility] Comment on above: Performed By: #### A MM #### [facility] [address] [place] [address] Dr. Ibis Jimenez Monocytes/100 WBC (Bld) 5.6 % Normal 1.7-12.0 [facility] Comment on above: Performed By: #### A MM #### [facility] [address] [place] [address] Dr. Ibis Jimenez NEUT # 4.9 103/ul Normal 1.4-6.5 [facility] Comment on above: Performed By: #### A MM #### [facility] [address] [place] [address] Dr. Ibis Jimenez Neutrophils/100 WBC (Bld) 62.3 % Normal 43.0-75.0 [facility] Comment on above: Performed By: #### A MM #### [facility] [address] [place] [address] Dr. Ibis Jimenez Platelet mean volume (Bld) [Entitic vol] 9.5 fL Normal 9.5-13.5 [facility] Comment on above: Performed By: #### A MM #### [facility] [address] [place] [address] Dr. Ibis Jimenez PLT 246 103/ul Normal 150-450 [facility] Comment on above: Performed By: #### A MM #### [facility] [address] [place] [address] Dr. Ibis Jimenez RBC 4.24 106/ul Normal 4.20-5.40 [facility] Comment on above: Performed By: #### A MM #### [facility] [address] [place] [address] Dr. Ibis Jimenez WBC 7.8 103/ul Normal 4.0-11.0 [facility] Comment on above: Performed By: #### A MM #### [facility] [address] [place] [address] Dr. Ibis Jimenez CULTURE BLOODon 03-31-2022 Microscopic examination of blood, culture Culture Observations: NO GROWTH AT 5 DAYS. Normal [facility] Comment on above: Performed By: #### B [id number] #### [facility] [address] [place] [address] Dr. Ibis Jimenez Microscopic examination of blood, culture Culture Observations: NO GROWTH AT 5 DAYS. Normal [facility] Comment on above: Performed By: #### B MP #### [facility] [address] [place] [address] Dr. Ibis Jimenez LACTATE/LACTIC ACIDon 2022 Lactate [Moles/Vol] 2.8 mmol/L Critically high 0.4-1.9 [facility] Comment on above: Performed By: #### C VDTBH #### [facility] [address] [place] [address] Dr. Ibis Jimenez PROF 14(COMP METB)on 023 Albumin [Mass/Vol] 3.4 g/dL Normal 3.4-5.0 [facility] Comment on above: Performed By: #### B MP #### [facility] [address] [place] [address] Dr. Ibis Jimenez Albumin/Globulin [Mass ratio] 1.2 {ratio} Normal [facility] Comment on above: Performed By: #### B MP #### [facility] [address] [place] [address] Dr. Ibis Jimenez ALP [Catalytic activity/Vol] 85 U/L Normal 46-116 [facility] Comment on above: Performed By: #### B MP #### [facility] [address] [place] [address] Dr. Ibis Jimenez ALT [Catalytic activity/Vol] 18 U/L Normal 14-59 [facility] Comment on above: Performed By: #### B MP #### [facility] [address] [address] [address] Ibis Jimenez Anion gap [Moles/Vol] 13.2 mmol/L Normal [facility] Comment on above: Performed By: #### B MP #### [facility] [address] [address] [address] Ibis Jimenez AST [Catalytic activity/Vol] 11 U/L Critically low 15-37 [facility] Comment on above: Performed By: #### B MP #### [facility] [address] [address] [address] Ibis Jimenez Bilirubin [Mass/Vol] 0.2 mg/dL Normal 0.2-1.0 [facility] Comment on above: Performed By: #### B MP #### [facility] [address] [place] [address] Dr. Ibis Jimenez Calcium [Mass/Vol] 8.6 mg/dL Normal 8.5-10.1 [facility] Comment on above: Performed By: #### B MP #### [facility] [address] [address] [address] Ibis Jimenez Chloride [Moles/Vol] 105 mmol/L Normal 98-107 [facility] Comment on above: Performed By: #### B MP #### [facility] [address] [place] [address] Dr. Ibis Jimenez CO2 [Moles/Vol] 25.1 mmol/L Normal 21.0-32.0 [facility] Comment on above: Performed By: #### B MP #### [facility] [address] [place] [address] Dr. Ibis Jimenez Creatinine [Mass/Vol] 0.80 mg/dL Normal 0.55-1.02 [facility] Comment on above: Performed By: #### B MP #### [facility] [address] [place] [address] Dr. Ibis Jimenez EGFR-AF SAMOAN >60 Normal >=60 [facility] Comment on above: Performed By: #### B MP #### [facility] [address] [address] [address] Ibis Jimenez EGFR-NON AF SAMOAN >60 Normal >=60 [facility] Comment on above: Performed By: #### B MP #### [facility] [address] [place] [address] Dr. Ibis Jimenez Globulin (S) [Mass/Vol] 2.9 g/dL Normal [facility] Comment on above: Performed By: #### B MP #### [facility] [address] [address] [address] Ibis Jimenez Glucose [Mass/Vol] 99 mg/dL Normal 74-106 [facility] Comment on above: Performed By: #### B MP #### [facility] [address] [place] [address] Dr. Ibis Jimenez Potassium [Moles/Vol] 3.3 mmol/L Critically low 3.5-5.1 [facility] Comment on above: Performed By: #### B MP #### [facility] [address] [place] [address] Dr. Ibis Jimenez Protein [Mass/Vol] 6.3 g/dL Critically low 6.4-8.[address] [facility] Comment on above: Performed By: #### B MP #### [facility] [address] [place] [address] Dr. Ibis Jimenez Sodium [Moles/Vol] 140 mmol/L Normal 136-145 [facility] Comment on above: Performed By: #### B MP #### [facility] [address] [place] [address] Dr. Ibis Jimenez Urea nitrogen [Mass/Vol] 10.0 mg/dL Normal 7.0-18.0 [facility] Comment on above: Performed By: #### B MP #### [facility] [address] [place] [address] Dr. Ibis Jimenez Urea nitrogen/Creatinine [Mass ratio] 12.5 mg/mg Normal [facility] Comment on above: Performed By: #### B MP #### [facility] [address] [place] [address] Dr. Ibis Jimenez CBC AUTO DIFFon 01-14-2022 BASO # 0.0 103/ul Normal 0.0-0.1 [facility] Comment on above: Performed By: #### A MM #### [facility] [address] [place] [address] Dr. Ibis Jimenez Basophils/100 WBC (Bld) 0.3 % Normal 0.2-2.0 [facility] Comment on above: Performed By: #### A MM #### [facility] [address] [place] [address] Dr. Ibis Jimenez EO # 0.2 103/ul Normal 0.0-0.7 [facility] Comment on above: Performed By: #### A MM #### [facility] [address] [place] [address] Dr. Ibis Jimenez Eosinophils/100 WBC (Bld) 2.7 % Normal 0.9-7.0 [facility] Comment on above: Performed By: #### A MM #### [facility] [address] [place] [address] Dr. Ibis Jimenez Erythrocyte distribution width (RBC) [Ratio] 13.2 % Normal 11.0-15.0 [facility] Comment on above: Performed By: #### A MM #### [facility] [address] [place] [address] Dr. Ibis Jimenez Hematocrit (Bld) [Volume fraction] 35.7 % Critically low 36.0-48.0 [facility] Comment on above: Performed By: #### A MM #### [facility] [address] [place] [address] Dr. Ibis Jimenez Hemoglobin (Bld) [Mass/Vol] 12.2 g/dL Normal 12.0-16.0 [facility] Comment on above: Performed By: #### A MM #### [facility] [address] [place] [address] Dr. Ibis Jimenez IG # 0.04 10e3/ul Critically high 0.00-0.03 [facility] Comment on above: Performed By: #### A MM #### [facility] [address] [place] [address] Dr. Ibis Jimenez IG % 0.5 % Normal 0.0-0.5 [facility] Comment on above: Performed By: #### A MM #### [facility] [address] [place] [address] Dr. Ibis Jimenez LYMPH # 2.1 103/ul Normal 1.2-3.8 [facility] Comment on above: Performed By: #### A MM #### [facility] [address] [place] [address] Dr. Ibis Jimenez Lymphocytes/100 WBC (Bld) 27.3 % Normal 20.5-60.0 [facility] Comment on above: Performed By: #### A MM #### [facility] [address] [place] [address] Dr. Ibis Jimenez MANUAL DIFF REQ NO Normal [facility] Comment on above: Performed By: #### A MM #### [facility] [address] [place] [address] Dr. Ibis Jimenez MCH (RBC) [Entitic mass] 29.0 pg Normal 26.7-34.0 [facility] Comment on above: Performed By: #### A MM #### [facility] [address] [place] [address] Dr. Ibis Jimenez MCHC (RBC) [Mass/Vol] 34.2 g/dL Normal 29.9-35.2 [facility] Comment on above: Performed By: #### A MM #### [facility] [address] [place] [address] Dr. Ibis Jimenez MCV (RBC) [Entitic vol] 84.8 fL Normal 81.0-99.0 [facility] Comment on above: Performed By: #### A MM #### [facility] [address] [place] [address] Dr. Ibis Jimenez MONO # 0.7 103/ul Normal 0.3-0.8 [facility] Comment on above: Performed By: #### A MM #### [facility] [address] [place] [address] Dr. Ibis Jimenez Monocytes/100 WBC (Bld) 8.7 % Normal 1.7-12.0 [facility] Comment on above: Performed By: #### A MM #### [facility] [address] [place] [address] Dr. Ibis Jimenez NEUT # 4.7 103/ul Normal 1.4-6.5 [facility] Comment on above: Performed By: #### A MM #### [facility] [address] [place] [address] Dr. Ibis Jimenez Neutrophils/100 WBC (Bld) 60.5 % Normal 43.0-75.0 [facility] Comment on above: Performed By: #### A MM #### [facility] [address] [place] [address] Dr. Ibis Jimenez Platelet mean volume (Bld) [Entitic vol] 9.6 fL Normal 9.5-13.5 [facility] Comment on above: Performed By: #### A MM #### [facility] [address] [place] [address] Dr. Ibis Jimenez PLT 212 103/ul Normal 150-450 [facility] Comment on above: Performed By: #### A MM #### [facility] [address] [place] [address] Dr. Ibis Jimenez RBC 4.21 106/ul Normal 4.20-5.40 [facility] Comment on above: Performed By: #### A MM #### [facility] [address] [place] [address] Dr. Ibis Jimenez WBC 7.7 103/ul Normal 4.0-11.0 [facility] Comment on above: Performed By: #### A MM #### [facility] [address] [place] [address] ABD/PELV W CONon [...] Date: 2022-01-14 20:01 Normal [facility] ER URINE PROFILEon 2 Bilirubin Ql (U) Negative Normal NEGATIVE [facility] Comment on above: Performed By: #### A RYAN SALYC #### [facility] [address] [place] [address] Dr. Ibis Jimenez Clarity (U) CLEAR Normal CLEAR [facility] Comment on above: Performed By: #### A RYAN SALYC #### [facility] [address] [place] [address] Dr. Ibis Jimenez Color (U) LT. YELLOW Normal YELLOW [facility] Comment on above: Performed By: #### A RYAN SALYC #### [facility] [address] [place] [address] Dr. Ibis Jimenez ERUAHD A micrscopic examination will be performed if indicated. Normal [facility] Comment on above: Performed By: #### A CET, SALYC #### [facility] [address] [place] [address] Dr. Ibis Jimenez Glucose Ql (U) Negative Normal NEGATIVE [facility] Comment on above: Performed By: #### A CET, SALYC #### [facility] [address] [place] [address] Dr. Ibis Jimenez Hemoglobin Ql (U) Negative Normal NEGATIVE [facility] Comment on above: Performed By: #### A CET, SALYC #### [facility] [address] [place] [address] Dr. Ibis Jimenez Ketones Ql (U) Negative Normal NEGATIVE [facility] Comment on above: Performed By: #### A CET, SALYC #### [facility] [address] [place] [address] Dr. Ibis Jimenez LEUKOCYTES TRACE Abnormal NEGATIVE [facility] Comment on above: Performed By: #### A CET, SALYC #### [facility] [address] [place] [address] Dr. Ibis Jimenez Nitrite Ql (U) Negative Normal NEGATIVE [facility] Comment on above: Performed By: #### A CET, SALYC #### [facility] [address] [place] [address] Dr. Ibis Jimenez pH (U) 5.5 [pH] Normal 5-9 [facility] Comment on above: Performed By: #### A CET, SALYC #### [facility] [address] [place] [address] Dr. Ibis Jimenez SPEC GRAVITY 1.025 Normal 1.005-<=1.02 5 [facility] Comment on above: Performed By: #### A CET, SALYC #### [facility] [address] [place] [address] Dr. Ibis Jimenez UA PROTEIN Negative Normal NEGATIVE/ TRACE [facility] Comment on above: Performed By: #### A CET, SALYC #### [facility] [address] [place] [address] Dr. Ibis Jimenez UR MICRO IND INDICATED Normal [facility] Comment on above: Performed By: #### A CET, SALYC #### [facility] [address] [place] [address] Dr. Ibis Jimenez Urobilinogen Qn (U) 0.2 {Dinorah'U}/dL Normal 0.2 - 1. 0 [facility] Comment on above: Performed By: #### A CET, SALYC #### [facility] [address] [place] [address] Dr. Ibis Jimenez URon 01-14-2022 , QUAL Negative Normal NEGATIVE [facility] Comment on above: Performed By: #### A CET SALYC #### [facility] [address] [place] [address] Dr. Ibis Jimenez PROF CHEM 8 (BAS METB)on Anion gap [Moles/Vol] 9.9 mmol/L Normal [facility] Comment on above: Performed By: #### B MP #### [facility] [address] [place] [address] Dr. Ibis Jimenez Calcium [Mass/Vol] 8.6 mg/dL Normal 8.5-10.1 [facility] Comment on above: Performed By: #### B MP #### [facility] [address] [place] [address] Dr. Ibis Jimenez Chloride [Moles/Vol] 105 mmol/L Normal 98-[address] [facility] Comment on above: Performed By: #### B MP #### [facility] [address] [place] [address] Dr. Ibis Jimenez CO2 [Moles/Vol] 27.5 mmol/L Normal 21.0-32.0 [facility] Comment on above: Performed By: #### B MP #### [facility] [address] [place] [address] Dr. Ibis Jimenez Creatinine [Mass/Vol] 0.70 mg/dL Normal 0.55-1.02 [facility] Comment on above: Performed By: #### B MP #### [facility] [address] [place] [address] Dr. Ibis Jimenez EGFR-AF SAMOAN >60 Normal >=60 [facility] Comment on above: Performed By: #### B MP #### [facility] [address] [place] [address] Dr. Ibis Jimenez EGFR-NON AF SAMOAN >60 Normal >=60 [facility] Comment on above: Performed By: #### B MP #### [facility] [address] [address] [address] Ibis Jimenez Glucose [Mass/Vol] 83 mg/dL Normal 74-106 [facility] Comment on above: Performed By: #### B MP #### [facility] [address] [address] [address] Ibis Jimenez Potassium [Moles/Vol] 4.4 mmol/L Normal 3.5-5.1 [facility] Comment on above: Performed By: #### B MP #### [facility] [address] [place] [address] Dr. Ibis Jimenez Sodium [Moles/Vol] 138 mmol/L Normal 136-145 [facility] Comment on above: Performed By: #### B MP #### [facility] [address] [place] [address] Dr. Ibis Jimenez Urea nitrogen [Mass/Vol] 13.0 mg/dL Normal 7.0-18.0 [facility] Comment on above: Performed By: #### B MP #### [facility] [address] [place] [address] Dr. Ibis Jimenez Urea nitrogen/Creatinine [Mass ratio] 18.6 mg/mg Normal [facility] Comment on above: Performed By: #### B MP #### [facility] [address] [place] [address] Dr. Ibis Jimenez URINE MICROSCOPIC ONLYon BACTERIA NONE SEEN Normal NONE SEEN [facility] Comment on above: Performed By: #### A CETBEEYC #### [facility] [address] [place] [address] Dr. Ibis Jimenez Bacteria identified Cx Nom (U) NOT INDICATED Normal [facility] Comment on above: Performed By: #### A CET SALMEI #### [facility] [address] [place] [address] Dr. Ibis Jimenez CAST NONE SEEN Normal NONE SEEN [facility] Comment on above: Performed By: #### A CET, SALYC #### [facility] [address] [place] [address] Dr. Ibis Jimenez Crystals LM Nom (Urine sed) NONE SEEN Normal NONE SEEN [facility] Comment on above: Performed By: #### A CET, SALYC #### [facility] [address] [place] [address] Dr. Ibis Jimenez Epithelial cells LM Ql (Urine sed) FEW Abnormal NONE SEEN /RARE [facility] Comment on above: Performed By: #### A CET, SALYC #### [facility] [address] [place] [address] Dr. Ibis Jimenez MUCOUS NONE SEEN Normal NONE SEEN [facility] Comment on above: Performed By: #### A CET, SALYC #### [facility] [address] [place] [address] Dr. Ibis Jimenez RBC NONE SEEN Abnormal 0-2 [facility] Comment on above: Performed By: #### A CET, SALYC #### [facility] [address] [place] [address] Dr. Ibis Jimenez WBC NONE SEEN Normal NONE SEEN [facility] Comment on above: Performed By: #### A CET, SALYC #### [facility] [address] [place] [address] Dr. Ibis Jimenez CBC AUTO DIFFon 01-07-2022 BASO # 0.0 103/ul Normal 0.0-0.1 [facility] Comment on above: Performed By: #### A CET, SALYC #### [facility] [address] [place] [address] Dr. Ibis Jimenez Basophils/100 WBC (Bld) 0.2 % Normal 0.2-2.0 [facility] Comment on above: Performed By: #### A CET, SALYC #### [facility] [address] [place] [address] Dr. Ibis Jimenez EO # 0.0 103/ul Normal 0.0-0.[address] [facility] Comment on above: Performed By: #### A CET, SALYC #### [facility] [address] [place] [address] Dr. Ibis Jimenez Eosinophils/100 WBC (Bld) 0.4 % Critically low 0.9-7.0 [facility] Comment on above: Performed By: #### A CET, SALYC #### [facility] [address] [place] [address] Dr. Ibis Jimenez Erythrocyte distribution width (RBC) [Ratio] 13.2 % Normal 11.0-15.0 [facility] Comment on above: Performed By: #### A CET, SALYC #### [facility] [address] [place] [address] Dr. Ibis Jimenez Hematocrit (Bld) [Volume fraction] 39.7 % Normal 36.0-48.0 [facility] Comment on above: Performed By: #### A CET, SALYC #### [facility] [address] [place] [address] Dr. Ibis Jimenez Hemoglobin (Bld) [Mass/Vol] 13.4 g/dL Normal 12.0-16.0 [facility] Comment on above: Performed By: #### A CET, SALYC #### [facility] [address] [place] [address] Dr. Ibis Jimenez IG # 0.06 10e3/ul Critically high 0.00-0.03 [facility] Comment on above: Performed By: #### A CET, SALYC #### [facility] [address] [place] [address] Dr. Ibis Jimenez IG % 0.5 % Normal 0.0-0.[address] [facility] Comment on above: Performed By: #### A CET, SALYC #### [facility] [address] [place] [address] Dr. Ibis Jimenez LYMPH # 2.6 103/ul Normal 1.2-3.[address] [facility] Comment on above: Performed By: #### A CET, SALYC #### [facility] [address] [place] [address] Dr. Ibis Jimenez Lymphocytes/100 WBC (Bld) 23.8 % Normal 20.5-60.0 [facility] Comment on above: Performed By: #### A CET, SALYC #### [facility] [address] [place] [address] Dr. Ibis Jimenez MANUAL DIFF REQ NO Normal [facility] Comment on above: Performed By: #### A CET, SALYC #### [facility] [address] [place] [address] Dr. Ibis Jimenez MCH (RBC) [Entitic mass] 28.8 pg Normal 26.7-34.0 [facility] Comment on above: Performed By: #### A CET, SALYC #### [facility] [address] [place] [address] Dr. Ibis Jimenez MCHC (RBC) [Mass/Vol] 33.8 g/dL Normal 29.9-35.2 [facility] Comment on above: Performed By: #### A CET, SALYC #### [facility] [address] [place] [address] Dr. Ibis Jimenez MCV (RBC) [Entitic vol] 85.2 fL Normal 81.0-99.0 [facility] Comment on above: Performed By: #### A CET, SALYC #### [facility] [address] [place] [address] Dr. Ibis Jimenez MONO # 0.8 103/ul Normal 0.3-0.8 [facility] Comment on above: Performed By: #### A CET, SALYC #### [facility] [address] [place] [address] Dr. Ibis Jimenez Monocytes/100 WBC (Bld) 7.7 % Normal 1.7-12.0 [facility] Comment on above: Performed By: #### A CET, SALYC #### [facility] [address] [place] [address] Dr. Ibis Jimenez NEUT # 7.4 103/ul Critically high 1.4-6.[address] [facility] Comment on above: Performed By: #### A CET, SALYC #### [facility] [address] [address] [address] Ibis Jimenez Neutrophils/100 WBC (Bld) 67.4 % Normal 43.0-75.0 [facility] Comment on above: Performed By: #### A CET, SALYC #### [facility] [address] [address] [address] Ibis Jimenez Platelet mean volume (Bld) [Entitic vol] 9.8 fL Normal 9.5-13.5 [facility] Comment on above: Performed By: #### A CET, SALYC #### [facility] [address] [address] [address] Ibis Jimenez PLT 261 103/ul Normal 150-450 [facility] Comment on above: Performed By: #### A CET, SALYC #### [facility] [address] [address] [address] Ibis Jimenez RBC 4.66 106/ul Normal 4.20-5.40 [facility] Comment on above: Performed By: #### A CET, SALYC #### [facility] [address] [address] [address] Ibis Jimenez WBC 10.9 103/ul Normal 4.0-11.0 [facility] Comment on above: Performed By: #### A CET, SALYC #### [facility] [address] [address] [address] Ibis Jimenez PROF CHEM 8 (BAS METB)on Anion gap [Moles/Vol] 14.1 mmol/L Normal [facility] Comment on above: Performed By: #### B MP #### [facility] [address] [address] [address] Ibis Jimenez Calcium [Mass/Vol] 8.5 mg/dL Normal 8.5-10.1 [facility] Comment on above: Performed By: #### B MP #### [facility] [address] [address] [address] Ibis Jimenez Chloride [Moles/Vol] 103 mmol/L Normal 98-107 [facility] Comment on above: Performed By: #### B MP #### [facility] [address] [address] [address] Ibis Jimenez CO2 [Moles/Vol] 22.5 mmol/L Normal 21.0-32.0 [facility] Comment on above: Performed By: #### B MP #### [facility] [address] [address] [address] Ibis Jimenez Creatinine [Mass/Vol] 0.64 mg/dL Normal 0.55-1.02 [facility] Comment on above: Performed By: #### B MP #### [facility] [address] [address] [address] Ibis Jimenez EGFR-AF SAMOAN >60 Normal >=60 [facility] Comment on above: Performed By: #### B MP #### [facility] [address] [address] [address] Ibis Jimenez EGFR-NON AF SAMOAN >60 Normal >=60 [facility] Comment on above: Performed By: #### B MP #### [facility] [address] [address] [address] Ibis Jimenez Glucose [Mass/Vol] 141 mg/dL Critically high 74-106 [facility] Comment on above: Performed By: #### B MP #### [facility] [address] [address] [address] Ibis Jimenez Potassium [Moles/Vol] 3.6 mmol/L Normal 3.5-5.1 [facility] Comment on above: Performed By: #### B MP #### [facility] [address] [address] [address] Ibis Jimenez Sodium [Moles/Vol] 136 mmol/L Normal 136-145 [facility] Comment on above: Performed By: #### B MP #### [facility] [address] [address] [address] Ibis Jimenez Urea nitrogen [Mass/Vol] 16.0 mg/dL Normal 7.0-18.0 [facility] Comment on above: Performed By: #### B MP #### [facility] [address] [place] [address] Dr. Ibis Jimenez Urea nitrogen/Creatinine [Mass ratio] 25.0 mg/mg Normal [facility] Comment on above: Performed By: #### B MP #### [facility] [address] [place] [address] Dr. Ibis Jimenez CBC AUTO DIFFon 11-04-2021 BASO # 0.0 103/ul Normal 0.0-0.1 [facility] Comment on above: Performed By: #### A CET, SALYC #### [facility] [address] [place] [address] Dr. Ibis Jimenez Basophils/100 WBC (Bld) 0.4 % Normal 0.2-2.0 [facility] Comment on above: Performed By: #### A CET, SALYC #### [facility] [address] [place] [address] Dr. Ibis Jimenez EO # 0.2 103/ul Normal 0.0-0.7 [facility] Comment on above: Performed By: #### A CET, SALYC #### [facility] [address] [place] [address] Dr. Ibis Jimenez Eosinophils/100 WBC (Bld) 4.1 % Normal 0.9-7.0 [facility] Comment on above: Performed By: #### A CET, SALYC #### [facility] [address] [place] [address] Dr. Ibis Jimenez Erythrocyte distribution width (RBC) [Ratio] 13.2 % Normal 11.0-15.0 [facility] Comment on above: Performed By: #### A CET, SALYC #### [facility] [address] [place] [address] Dr. Ibis Jimenez Hematocrit (Bld) [Volume fraction] 34.3 % Critically low 36.0-48.0 [facility] Comment on above: Performed By: #### A CET, SALYC #### [facility] [address] [place] [address] Dr. Ibis Jimenez Hemoglobin (Bld) [Mass/Vol] 11.5 g/dL Critically low 12.0-16.0 [facility] Comment on above: Performed By: #### A CET, SALYC #### [facility] [address] [place] [address] Dr. Ibis Jimenez IG # 0.01 10e3/ul Normal 0.00-0.03 [facility] Comment on above: Performed By: #### A CET, SALYC #### [facility] [address] [place] [address] Dr. Ibis Jimenez IG % 0.2 % Normal 0.0-0.5 [facility] Comment on above: Performed By: #### A CET, SALYC #### [facility] [address] [place] [address] Dr. Ibis Jimenez LYMPH # 1.5 103/ul Normal 1.2-3.8 [facility] Comment on above: Performed By: #### A CET, SALYC #### [facility] [address] [place] [address] Dr. Ibis Jimenez Lymphocytes/100 WBC (Bld) 26.4 % Normal 20.5-60.0 [facility] Comment on above: Performed By: #### A CET, SALYC #### [facility] [address] [place] [address] Dr. Ibis Jimenez MANUAL DIFF REQ NO Normal [facility] Comment on above: Performed By: #### A CET, SALYC #### [facility] [address] [place] [address] Dr. Ibis Jimenez MCH (RBC) [Entitic mass] 28.8 pg Normal 26.7-34.0 [facility] Comment on above: Performed By: #### A CET, SALYC #### [facility] [address] [place] [address] Dr. Ibis Jimenez MCHC (RBC) [Mass/Vol] 33.5 g/dL Normal 29.9-35.2 [facility] Comment on above: Performed By: #### A CET, SALYC #### [facility] [address] [place] [address] Dr. Ibis Jimenez MCV (RBC) [Entitic vol] 86.0 fL Normal 81.0-99.0 [facility] Comment on above: Performed By: #### A CET, SALYC #### [facility] [address] [place] [address] Dr. Ibis Jimenez MONO # 0.5 103/ul Normal 0.3-0.8 [facility] Comment on above: Performed By: #### A CET, SALYC #### [facility] [address] [place] [address] Dr. Ibis Jimenez Monocytes/100 WBC (Bld) 8.2 % Normal 1.7-12.0 [facility] Comment on above: Performed By: #### A CET, SALYC #### [facility] [address] [place] [address] Dr. Ibis Jimenez NEUT # 3.4 103/ul Normal 1.4-6.5 [facility] Comment on above: Performed By: #### A CET, SALYC #### [facility] [address] [place] [address] Dr. Ibis Jimenez Neutrophils/100 WBC (Bld) 60.7 % Normal 43.0-75.0 [facility] Comment on above: Performed By: #### A CET, SALYC #### [facility] [address] [place] [address] Dr. Ibis Jimenez Platelet mean volume (Bld) [Entitic vol] 9.9 fL Normal 9.5-13.5 [facility] Comment on above: Performed By: #### A CET, SALYC #### [facility] [address] [place] [address] Dr. Ibis Jimenez PLT 222 103/ul Normal 150-[address] [facility] Comment on above: Performed By: #### A CET, SALYC #### [facility] [address] [place] [address] Dr. Ibis Jimenez RBC 3.99 106/ul Critically low 4.20-5.[address] [facility] Comment on above: Performed By: #### A CET, SALYC #### [facility] [address] [place] [address] Dr. Ibis Jimenez WBC 5.6 103/ul Normal 4.0-11.0 [facility] Comment on above: Performed By: #### A KORI DAVIS #### [facility] [address] [address] [address] Ibis Jimenez PROF CHEM 8 (BAS METB)on Anion gap [Moles/Vol] 10.5 mmol/L Normal [facility] Comment on above: Performed By: #### B MP #### [facility] [address] [place] [address] Dr. Ibis Jimenez Calcium [Mass/Vol] 8.8 mg/dL Normal 8.5-10.1 [facility] Comment on above: Performed By: #### B MP #### [facility] [address] [place] [address] Dr. Ibis Jimenez Chloride [Moles/Vol] 105 mmol/L Normal 98-107 [facility] Comment on above: Performed By: #### B MP #### [facility] [address] [place] [address] Dr. Ibis Jimenez CO2 [Moles/Vol] 24.9 mmol/L Normal 21.0-32.0 [facility] Comment on above: Performed By: #### B MP #### [facility] [address] [place] [address] Dr. Ibis Jimenez Creatinine [Mass/Vol] 0.71 mg/dL Normal 0.55-1.02 [facility] Comment on above: Performed By: #### B MP #### [facility] [address] [place] [address] Dr. Ibis Jimenez EGFR-AF SAMOAN >60 Normal >=60 [facility] Comment on above: Performed By: #### B MP #### [facility] [address] [place] [address] Dr. Ibis Jimenez EGFR-NON AF SAMOAN >60 Normal >=60 [facility] Comment on above: Performed By: #### B MP #### [facility] [address] [place] [address] Dr. Ibis Jimenez Glucose [Mass/Vol] 103 mg/dL Normal 74-106 [facility] Comment on above: Performed By: #### B MP #### [facility] [address] [address] [address] Ibis Jimenez Potassium [Moles/Vol] 3.4 mmol/L Critically low 3.5-5.1 [facility] Comment on above: Performed By: #### B MP #### [facility] [address] [address] [address] Ibis Jimenez Sodium [Moles/Vol] 137 mmol/L Normal 136-145 [facility] Comment on above: Performed By: #### B MP #### [facility] [address] [place] [address] Dr. Ibis Jimenez Urea nitrogen [Mass/Vol] 17.0 mg/dL Normal 7.0-18.0 [facility] Comment on above: Performed By: #### B MP #### [facility] [address] [address] [address] Ibis Jimenez Urea nitrogen/Creatinine [Mass ratio] 23.9 mg/mg Normal [facility] Comment on above: Performed By: #### B MP #### [facility] [address] [place] [address] Dr. Ibis Jimenez Basic Metab w/rfx MGon 10-20 (cont.) Normal [facility] Comment on above: Result Comment: Aver age GFR for 20-29 years old: 116 mL/min/1.73sq m Chronic Kidney Disease: <60 mL/min/1.73sq m Kidney failure: <15 mL/min/1.73sq m eGFR calculated using average adult body mass. Additional eGFR calculator available at: http://www.PlanetTran.com/multiple_crcl_2012.htm Performed By: #### B MPX #### [facility] [address] [place], [place] [id number] [employer] Chair: Tavon Nicole MD Anion gap [Moles/Vol] 10 mmol/L Normal 9-17 [facility] Comment on above: Performed By: #### B MPX #### [facility] [employer] [address] [place] [address] [employer] Chair: Tavon Nicole MD Calcium [Mass/Vol] 7.8 mg/dL Low 8.6-10.4 [facility] Comment on above: Performed By: #### B MPX #### [address] [address] [employer] Chair: Tavon Nicole MD Chloride [Moles/Vol] 109 mmol/L High 98-107 [facility] Comment on above: Performed By: #### B MPX #### [address] [address] [employer] Chair: Tavon Nicole MD CO2 [Moles/Vol] 20 mmol/L Normal 20-31 [facility] Comment on above: Performed By: #### B MPX #### [address] [address] [employer] Chair: Tavon Nicole MD Creatinine [Mass/Vol] 0.45 mg/dL Low 0.50-0.90 [facility] Comment on above: Performed By: #### B MPX #### [address] [address] [employer] Chair: Tavon Nicole MD GFR, Amer >60 Normal >60 [facility] Comment on above: Performed By: #### B MPX #### [facility] [employer] [address] [place] [address] [employer] Chair: Tavon Nicole MD GFR,non Amer >60 Normal >60 [facility] Comment on above: Performed By: #### B MPX #### [facility] [address] [place] [address] [employer] Chair: Tavon Nicole MD Glucose [Mass/Vol] 84 mg/dL Normal 70-99 [facility] Comment on above: Performed By: #### B MPX #### [facility] [address] [place] [address] [employer] Chair: Tavon Nicole MD Potassium [Moles/Vol] 4.1 mmol/L Normal 3.7-5.3 [facility] Comment on above: Result Comment: SPEC IMEN SLIGHTLY HEMOLYZED, RESULTS MAY BE ADVERSELY AFFECTED. Performed By: #### B MPX #### [facility] [address] [place] [address] [employer] Chair: Tavon Nicole MD Sodium [Moles/Vol] 139 mmol/L Normal 135-144 [facility] Comment on above: Performed By: #### B MPX #### [facility] [address] [place] [address] [employer] Chair: Tavon Nicole MD Urea nitrogen [Mass/Vol] 8 mg/dL Normal 6-20 [facility] Comment on above: Performed By: #### B MPX #### [facility] [address] [place] [address] [employer] Chair: Tavon Nicole MD Basic Metabolic Panel w/ Ref rossi to MGon 10-20-2021 Anion gap [Moles/Vol] 10 mmol/L 9 - 17 mmol/L [employer] Calcium [Mass/Vol] 7.8 mg/dL Low 8.6 - 10. 4 mg/dL [employer] [facility] Chloride [Moles/Vol] 109 mmol/L High 98 - 10 7 mmol/L [employer] [facility] CO2 [Moles/Vol] 20 mmol/L 20 - 31 mmol/L [employer] [facility] Creatinine [Mass/Vol] 0.45 mg/dL Low 0.5 - 0.9 mg/dL [employer] GFR >60 60 - PI NF mL/min [employer] GFR Non- >60 60 - PINF mL/min [employer] GFR/1.73 sq M.predicted MDRD (S/P/Bld) [Vol rate/Area] [facility] Comment on above: Average GFR for 20-2 9 years old: 116 mL/min/1.73sq m Chronic Kidney Disease: <60 mL/min/1.73sq m Kidney failure: <15 mL/min/1.73sq m eGFR calculated using average adult body mass. Additional eGFR calculator available at: http://www.[employer]/multiple_crcl_2012.htm Glucose [Mass/Vol] 84 mg/dL 70 - 99 mg/dL [facility] Interpretation and review of laboratory results Abnormal [facility] Potassium [Moles/Vol] 4.1 mmol/L 3.7 - 5.3 mmol/L [facility] Comment on above: SPECIMEN SLIGHTLY HE MOLYZED, RESULTS MAY BE ADVERSELY AFFECTED. Sodium [Moles/Vol] 139 mmol/L 135 - 144 mmol/L [facility] Urea nitrogen (BldV) [Mass/Vol] 8 mg/dL 6 - 20 mg/dL [facility] CBC with Auto Differentialon 10-20-2021 Absolute Eos # 0.15 [facility] Absolute Immature Granulocyte [facility] Absolute Lymph # 1.48 [facility] Absolute Stoddard # 0.28 [facility] Basophils (Bld) [#/Vol] 0.03 10*3/uL [facility] Basophils/100 WBC (Bld) 1 % 0 - 2 % B [facility] Eosinophils/100 WBC (Bld) 3 % 1 - 4 % [facility] Hematocrit (Bld) [Volume fraction] 35.5 % Low 36.3 - 47.1 % [facility] Hemoglobin (Bld) [Mass/Vol] 11.3 g/dL Low 11.9 - 15.1 g/dL [facility] Immature granulocytes/100 WBC (Bld) 0 % 0 [facility] Interpretation and review of laboratory results Abnormal [facility] Lymphocytes/100 WBC (Bld) 34 % 24 - 43 % [facility] MCH (RBC) [Entitic mass] 27.9 pg 25.2 - 33.5 pg [facility] MCHC (RBC) [Mass/Vol] 31.8 g/dL 28.4 - 34.8 g/dL [facility] MCV (RBC) [Entitic vol] 87.7 fL 82.6 - 102.9 fL [facility] Monocytes/100 WBC (Bld) 6 % 3 - 12 % B ON [facility] NRBC Automated 0.0 0.0 per 100 WBC [facility] Platelet distribution width (Bld) [Ratio] 12.9 % 11.8 - 14.4 % [facility] Platelets (Bld) [#/Vol] See Reflexed IPF Result [facility] RBC (Bld) [#/Vol] 4.05 10*6/uL 3.95 - 5.1 1 m/uL [facility] Segmented neutrophils/100 WBC (Bld) 55 % 36 - 65 % [facility] Segs Absolute 2.42 [facility] WBC (Bld) [#/Vol] 4.4 10*3/uL [facility] CBC with Diffon 10-20-2021 Abs. Basophil 0.03 k/uL Normal 0.00-0.20 [facility] Comment on above: Performed By: #### C DP, IPF #### [facility] [address] [place] [address] [employer] Chair: Tavon Nicole MD Abs.Imm.Granulocyte <0.03 Normal 0.00-0.30 [facility] Comment on above: Performed By: #### C DP, IPF #### [facility] [address] [place] [phone] [employer] Chair: Tavon Nicole MD Abs.Neutrophil (Seg) 2.42 k/uL Normal 1.50-8.10 [facility] Comment on above: Performed By: #### C DP, IPF #### [facility] [address] [place] [address] [employer] Chair: Tavon Nicole MD Basophils/100 WBC (Bld) 1 % Normal 0-2 [facility] Comment on above: Performed By: #### C DP, IPF #### [place] [address] [employer] Chair: Tavon Nicole MD Eosinophils (Bld) [#/Vol] 0.15 10*3/uL Normal 0.00-0.44 [facility] Comment on above: Performed By: #### C DP, IPF #### [place] [address] [employer] Chair: Tavon Nicole MD Eosinophils/100 WBC (Bld) 3 % Normal 1-4 [facility] Comment on above: Performed By: #### C DP, IPF #### [place] [address] [employer] Chair: Tavon Nicole MD Immature granulocytes/100 WBC (Bld) 0 % Normal 0 [facility] Comment on above: Performed By: #### C DP, IPF #### [place] [address] [employer] Chair: Tavon Nicole MD Lymphocytes (Bld) [#/Vol] 1.48 10*3/uL Normal 1.10-3.70 [facility] Comment on above: Performed By: #### C DP, IPF #### [place] [address] [employer] Chair: Tavon Nicole MD Lymphocytes/100 WBC (Bld) 34 % Normal 24-43 [facility] Comment on above: Performed By: #### C DP, IPF #### [place] [address] [employer] Chair: Tavon Nicole MD Monocytes (Bld) [#/Vol] 0.28 10*3/uL Normal 0.10-1.20 [facility] Comment on above: Performed By: #### C DP, IPF #### [address] [address] [employer] Chair: Tavon Nicole MD Monocytes/100 WBC (Bld) 6 % Normal 3-12 [facility] Comment on above: Performed By: #### C DP, IPF #### [address] [address] [employer] Chair: Tavon Nicole MD Neutrophil (Seg) 55 % Normal 36-65 [facility] Comment on above: Performed By: #### C DP, IPF #### [address] [address] [employer] Chair: Tavon Nicole MD Erythrocyte distribution width (RBC) [Ratio] 12.9 % Normal 11.8-14.4 [facility] Comment on above: Performed By: #### C DP, IPF #### [address] [address] English Division Chair: Tavon Nicole MD Hematocrit (Bld) [Volume fraction] 35.5 % Low 36.3-47.1 [facility] Comment on above: Performed By: #### C DP, IPF #### [address] [address] English Division Chair: Tavon Nicole MD Hemoglobin (Bld) [Mass/Vol] 11.3 g/dL Low 11.9-15.1 [facility] Comment on above: Performed By: #### C DP, IPF #### [address] [address] English Division Chair: Tavon Nicole MD MCH (RBC) [Entitic mass] 27.9 pg Normal 25.2-33.5 [facility] Comment on above: Performed By: #### C DP, IPF #### [address] [address] English Division Chair: Tavon Nicole MD MCHC (RBC) [Mass/Vol] 31.8 g/dL Normal 28.4-34.8 [facility] Comment on above: Performed By: #### C DP, IPF #### [address] [address] English Division Chair: Tavon Nicole MD MCV (RBC) [Entitic vol] 87.7 fL Normal 82.6-102.9 [facility] Comment on above: Performed By: #### C DP, IPF #### [address] [address] English Division Chair: Tavon Nicole MD NRBC Automated 0.0 per 100 WBC Normal 0.0 [facility] Comment on above: Performed By: #### C DP, IPF #### [address] [address] English Division Chair: Tavon Nicole MD Platelet Count See Reflexed IPF Result Normal 138-453 [facility] Comment on above: Performed By: #### C DP, IPF #### [address] [address] English Division Chair: Tavon Nicole MD RBC (Bld) [#/Vol] 4.05 10*6/uL Normal 3.95-5.11 [facility] Comment on above: Performed By: #### C DP, IPF #### [address] [address] English Division Chair: Tavon Nicole MD WBC (Bld) [#/Vol] 4.4 10*3/uL Normal 3.5-11.3 [facility] Comment on above: Performed By: #### C DP, IPF #### [address] [address] English Division Chair: Tavon Nicole MD EEG video monitoringon 10-20 Raiza Land MD 10/20/2021 12:11 PM Referring physician: Chris Blanchard APRN Date:10/20/2021 Start Time:10/19/2021 @1258 End Time: 10/20/2021 @ 1200 Indication Patient with recurrent events Introduction This continuous video-EEG was acquired using a [employer] workstation at 256 samples/s. Electrodes were placed [...] Certified. Neurology Board Certified. Electronically Signed [facility] Work Phone: EEG video monitoringOrdered By: Raiza Land on 10-20-2021 [facility] Work Phone: Immature Platelet Fractionon 10-20-2021 Platelet, Fluorescence Platelet clumps present, count appears adequate. [facility] PLT, Immature Fract.on 10-20 Platelet, Fluoresc. Platelet clumps present, count appears adequate. Normal 138-453 [facility] Comment on above: Performed By: #### C DP, IPF #### [facility] [place] [address] English Division Chair: Tavon Nicole MD PROLACTINon 10-20-2021 Prolactin 41.7 ng/mL Critically high 4.8-23.3 [facility] Comment on above: Performed By: #### C VDTB #### [facility] [address] [place], [place] [address] Dr. Ibis Jimenez CBCon 10-19-2021 Erythrocyte distribution width (RBC) [Ratio] 12.9 % Normal 11.8-14.4 [facility] Comment on above: Performed By: #### T ROPI, LACTIC, CMPX, CBC #### [facility] [address] [place] [address] English Division Chair: Tavon Nicole MD Hematocrit (Bld) [Volume fraction] 31.5 % Low 36.3-47.1 [facility] Comment on above: Performed By: #### T ROPI, LACTIC, CMPX, CBC #### [facility] [address] [place] [address] English Division Chair: Tavon Nicole MD Hemoglobin (Bld) [Mass/Vol] 10.8 g/dL Low 11.9-15.1 [facility] Comment on above: Performed By: #### T ROPI, LACTIC, CMPX, CBC #### [facility] [address] [place] [address] English Division Chair: Tavon Nicole MD MCH (RBC) [Entitic mass] 29.1 pg Normal 25.2-33.5 [facility] Comment on above: Performed By: #### T ROPI, LACTIC, CMPX, CBC #### [facility] [address] [place] [address] English Division Chair: Tavon Nicole MD MCHC (RBC) [Mass/Vol] 34.3 g/dL Normal 28.4-34.8 [facility] Comment on above: Performed By: #### T ROPI, LACTIC, CMPX, CBC #### [facility] [address] [place] [address] English Division Chair: Tavon Nicole MD MCV (RBC) [Entitic vol] 84.9 fL Normal 82.6-102.9 [facility] Comment on above: Performed By: #### T ROPI, LACTIC, CMPX, CBC #### [address] [address] English Division Chair: Tavon Nicole MD NRBC Automated 0.0 per 100 WBC Normal 0.0 [facility] Comment on above: Performed By: #### T ROPI, LACTIC, CMPX, CBC #### [address] [address] English Division Chair: Tavon Nicole MD Platelet mean volume (Bld) [Entitic vol] 9.8 fL Normal 8.1-13.5 [facility] Comment on above: Performed By: #### T ROPI, LACTIC, CMPX, CBC #### [address] [address] English Division Chair: Tavon Nicole MD Platelets (Bld) [#/Vol] 281 10*3/uL Normal 138-453 [facility] Comment on above: Performed By: #### T ROPI, LACTIC, CMPX, CBC #### [address] [address] English Division Chair: Tavon Nicole MD RBC (Bld) [#/Vol] 3.71 10*6/uL Low 3.95-5.11 [facility] Comment on above: Performed By: #### T ROPI, LACTIC, CMPX, CBC #### [address] [address] English Division Chair: Tavon Nicole MD WBC (Bld) [#/Vol] 5.0 10*3/uL Normal 3.5-11.3 [facility] Comment on above: Performed By: #### T ROPI, LACTIC, CMPX, CBC #### [facility] [address] [place] [address] English Division Chair: Tavon Nicole MD Hematocrit (Bld) [Volume fraction] 31.5 % Low 36.3 - 47.1 % [facility] Hemoglobin (Bld) [Mass/Vol] 10.8 g/dL Low 11.9 - 15.1 g/dL [facility] Interpretation and review of laboratory results Abnormal [facility] MCH (RBC) [Entitic mass] 29.1 pg 25.2 - 33.5 pg [facility] MCHC (RBC) [Mass/Vol] 34.3 g/dL 28.4 - 34.8 g/dL [facility] MCV (RBC) [Entitic vol] 84.9 fL 82.6 - 102.9 fL [facility] NRBC Automated 0.0 0.0 per 100 WBC [facility] Platelet distribution width (Bld) [Ratio] 12.9 % 11.8 - 14.4 % [facility] Platelet mean volume (Bld) [Entitic vol] 9.8 fL 8.1 - 13.5 fL [facility] Platelets (Bld) [#/Vol] 281 10*3/uL [facility] RBC (Bld) [#/Vol] 3.71 10*6/uL Low 3.95 - 5.1 1 m/uL [facility] WBC (Bld) [#/Vol] 5.0 10*3/uL [facility] CBC AUTO DIFFon 10-19-2021 EO # 0.2 103/ul Normal 0.0-0.7 [facility] Comment on above: Performed By: #### A MM #### [facility] [address] [place] [address] Dr. Ibis Jimenez Eosinophils/100 WBC (Bld) 3.9 % Normal 0.9-7.0 [facility] Comment on above: Performed By: #### A MM #### [facility] [address] [place], [place] [address] Dr. Ibis Jimenez Erythrocyte distribution width (RBC) [Ratio] 13.1 % Normal 11.0-15.0 [facility] Comment on above: Performed By: #### A MM #### [facility] [address] [place] [address] Dr. Ibis Jimenez Hematocrit (Bld) [Volume fraction] 33.4 % Critically low 36.0-48.0 [facility] Comment on above: Performed By: #### A MM #### [facility] [address] [place] [address] Dr. Ibis Jimenez Hemoglobin (Bld) [Mass/Vol] 11.1 g/dL Critically low 12.0-16.0 [facility] Comment on above: Performed By: #### A MM #### [facility] [address] [place] [address] Dr. Ibis Jimenez LYMPH # 1.2 103/ul Normal 1.2-3.8 [facility] Comment on above: Performed By: #### A MM #### [facility] [address] [place] [address] Dr. Ibis Jimenez Lymphocytes/100 WBC (Bld) 25.9 % Normal 20.5-60.0 [facility] Comment on above: Performed By: #### A MM #### [facility] [address] [place] [address] Dr. Ibis Jimenez MCHC (RBC) [Mass/Vol] 33.2 g/dL Normal 29.9-35.2 [facility] Comment on above: Performed By: #### A MM #### [facility] [address] [place] [address] Dr. Ibis Jimenez MCV (RBC) [Entitic vol] 85.9 fL Normal 81.0-99.0 [facility] Comment on above: Performed By: #### A MM #### [facility] [address] [place] [address] Dr. Ibis Jimenez Monocytes/100 WBC (Bld) 7.7 % Normal 1.7-12.0 [facility] Comment on above: Performed By: #### A MM #### [facility] [address] [place] [address] Dr. Ibis Jimenez NEUT # 2.9 103/ul Normal 1.4-6.5 [facility] Comment on above: Performed By: #### A MM #### [facility] [address] [place] [address] Dr. Ibis Jimenez Neutrophils/100 WBC (Bld) 61.5 % Normal 43.0-75.0 [facility] Comment on above: Performed By: #### A MM #### [facility] [address] [place] [address] Dr. Ibis Jimenez PLT 264 103/ul Normal 150-450 [facility] Comment on above: Performed By: #### A MM #### [facility] [address] [place] [address] Dr. Ibis Jimenez RBC 3.89 106/ul Critically low 4.20-5.[address] [facility] Comment on above: Performed By: #### A MM #### [facility] [address] [place] [address] Dr. Ibis Jimenez WBC 4.7 103/ul Normal 4.0-11.0 [facility] Comment on above: Performed By: #### A MM #### [facility] [address] [place] [address] Dr. Ibis Jimenez BASO # 0.0 103/ul Normal 0.0-0.1 [facility] Comment on above: Performed By: #### A MM #### [facility] [address] [place] [address] Dr. Ibis Jimenez Performed By: #### C VDTB #### [facility] [address] [place] [address] Dr. Ibis Jimenez Basophils/100 WBC (Bld) 0.6 % Normal 0.2-2.0 [facility] Comment on above: Performed By: #### A MM #### [facility] [address] [place] [address] Dr. Ibis Jimenez Performed By: #### C VDTBH #### [facility] [address] [place] [address] Dr. Ibis Jimenez EO # 0.3 103/ul Normal 0.0-0.7 [facility] Comment on above: Performed By: #### C VDTBH #### [facility] [address] [place] [address] Dr. Ibis Jimenez Eosinophils/100 WBC (Bld) 5.0 % Normal 0.9-7.0 [facility] Comment on above: Performed By: #### C VDTBH #### [facility] [address] [place] [address] Dr. Ibis Jimenez Erythrocyte distribution width (RBC) [Ratio] 12.8 % Normal 11.0-15.0 [facility] Comment on above: Performed By: #### C VDTBH #### [facility] [address] [place] [address] Dr. Ibis Jimenez Hematocrit (Bld) [Volume fraction] 38.0 % Normal 36.0-48.0 [facility] Comment on above: Performed By: #### C VDTBH #### [facility] [address] [place] [address] Dr. Ibis Jimenez Hemoglobin (Bld) [Mass/Vol] 12.7 g/dL Normal 12.0-16.0 [facility] Comment on above: Performed By: #### C VDTBH #### [facility] [address] [place] [address] Dr. Ibis Jimenez IG # 0.02 10e3/ul Normal 0.00-0.03 [facility] Comment on above: Performed By: #### A MM #### [facility] [address] [place] [address] Dr. Ibis Jimenez Performed By: #### C VDTBH #### [facility] [address] [place] [address] Dr. Ibis Jimenez IG % 0.4 % Normal 0.0-0.5 [facility] Comment on above: Performed By: #### A MM #### [facility] [address] [place] [address] Dr. Ibis Jimenez Performed By: #### C VDTBH #### [facility] [address] [place] [address] Dr. Ibis Jimenez LYMPH # 1.7 103/ul Normal 1.2-3.8 [facility] Comment on above: Performed By: #### C VDTBH #### [facility] [address] [place] [address] Dr. Ibis Jimenez Lymphocytes/100 WBC (Bld) 30.7 % Normal 20.5-60.0 [facility] Comment on above: Performed By: #### C VDTBH #### [facility] [address] [place] [address] Dr. Ibis Jimenez MANUAL DIFF REQ NO Normal [facility] Comment on above: Performed By: #### A MM #### [facility] [address] [place] [address] Dr. Ibis Jimenez Performed By: #### C VDTBH #### [facility] [address] [place] [address] Dr. Ibis Jimenez MCH (RBC) [Entitic mass] 28.5 pg Normal 26.7-34.0 [facility] Comment on above: Performed By: #### A MM #### [facility] [address] [place] [address] Dr. Ibis Jimenez Performed By: #### C VDTBH #### [facility] [address] [place] [address] Dr. Ibis Jimenez MCHC (RBC) [Mass/Vol] 33.4 g/dL Normal 29.9-35.2 [facility] Comment on above: Performed By: #### C VDTBH #### [facility] [address] [place] [address] Dr. Ibis Jimenez MCV (RBC) [Entitic vol] 85.2 fL Normal 81.0-99.0 [facility] Comment on above: Performed By: #### C VDTBH #### [facility] [address] [place] [address] Dr. Ibis Jimenez MONO # 0.4 103/ul Normal 0.3-0.8 [facility] Comment on above: Performed By: #### A MM #### [facility] [address] [place] [address] Dr. Ibis Jimenez Performed By: #### C VDTBH #### [facility] [address] [place] [address] Dr. Ibis Jimenez Monocytes/100 WBC (Bld) 8.1 % Normal 1.7-12.0 [facility] Comment on above: Performed By: #### C VDTB #### [facility] [address] [place] [address] Dr. Ibis Jimenez NEUT # 3.0 103/ul Normal 1.4-6.5 [facility] Comment on above: Performed By: #### C VDTBH #### [facility] [address] [place] [address] Dr. Ibis Jimenez Neutrophils/100 WBC (Bld) 55.2 % Normal 43.0-75.0 [facility] Comment on above: Performed By: #### C VDTB #### [facility] [address] [place] [address] Dr. Ibis Jimenez Platelet mean volume (Bld) [Entitic vol] 9.5 fL Normal 9.5-13.5 [facility] Comment on above: Performed By: #### A MM #### [facility] [address] [place] [address] Dr. Ibis Jimenez Performed By: #### C VDTBH #### [facility] [address] [place] [address] Dr. Ibis Jimenez PLT 343 103/ul Normal 150-450 [facility] Comment on above: Performed By: #### C VDTBH #### [facility] [address] [place] [address] Dr. Ibis Jimenez RBC 4.46 106/ul Normal 4.20-5.40 [facility] Comment on above: Performed By: #### C VDTBH #### [facility] [address] [place] [address] Dr. Ibis Jimenez WBC 5.4 103/ul Normal 4.0-11.0 [facility] Comment on above: Performed By: #### C VDTBH #### [facility] [address] [address] HEAD WO CONon [...] LOPEZ REYNOLDS Date: 2021-10-19 07:31 Normal [facility] Metabolic Pr/rfx MGon 0 10-19-2021 (cont.) Normal [facility] Comment on above: Result Comment: Aver age GFR for 20-29 years old: 116 mL/min/1.73sq m Chronic Kidney Disease: <60 mL/min/1.73sq m Kidney failure: <15 mL/min/1.73sq m eGFR calculated using average adult body mass. Additional eGFR calculator available at: http://www.[employer]/multiple_crcl_2011.htm Performed By: #### T ROPI, LACTIC, CMPX, CBC #### [employer] [address] [place] [address] English Division Chair: Tavon Nicole MD Albumin [Mass/Vol] 3.5 g/dL Normal 3.5-5.2 [facility] Comment on above: Performed By: #### T ROPI, LACTIC, CMPX, CBC #### [employer] [address] [place] [address] English Division Chair: Tavon Nicole MD Albumin/Glob Ratio 1.4 Normal 1.0-2.5 [facility] Comment on above: Performed By: #### T ROPI, LACTIC, CMPX, CBC #### [facility] [employer] [address] [place] [address] English Division Chair: Tavon Nicole MD Alkaline Phos 69 U/L Normal 35-104 [facility] Comment on above: Performed By: #### T ROPI, LACTIC, CMPX, CBC #### [facility] [address] [place] [phone] English Division Chair: Tavon Nicole MD ALT [Catalytic activity/Vol] 15 U/L Normal 5-33 [facility] Comment on above: Performed By: #### T ROPI, LACTIC, CMPX, CBC #### [address] [address] English Division Chair: Tavon Nicole MD Anion gap [Moles/Vol] 13 mmol/L Normal 9-17 [facility] Comment on above: Performed By: #### T ROPI, LACTIC, CMPX, CBC #### [address] [address] English Division Chair: Tavon Nicole MD AST [Catalytic activity/Vol] 12 U/L Normal <32 [facility] Comment on above: Performed By: #### T ROPI, LACTIC, CMPX, CBC #### [facility] [employer] [address] [place] [address] English Division Chair: Tavon Nicole MD Bilirubin [Mass/Vol] 0.24 mg/dL Low 0.3-1.2 [facility] Comment on above: Performed By: #### T ROPI, LACTIC, CMPX, CBC #### [facility] [address] [place] [phone] English Division Chair: Tavon Nicole MD Calcium [Mass/Vol] 8.1 mg/dL Low 8.6-10.4 [facility] Comment on above: Performed By: #### T ROPI, LACTIC, CMPX, CBC #### [facility] [address] [place] [address] English Division Chair: Tavon Niocle MD Chloride [Moles/Vol] 107 mmol/L Normal 98-107 [facility] Comment on above: Performed By: #### T ROPI, LACTIC, CMPX, CBC #### [facility] [address] [place] [phone] English Division Chair: Tavon Nicole MD CO2 [Moles/Vol] 19 mmol/L Low 20-31 [facility] Comment on above: Performed By: #### T ROPI, LACTIC, CMPX, CBC #### [facility] [address] [place] [address] English Division Chair: Tavon Nicole MD Creatinine [Mass/Vol] 0.53 mg/dL Normal 0.50-0.90 [facility] Comment on above: Performed By: #### T ROPI, LACTIC, CMPX, CBC #### [facility] [address] [place] [phone] English Division Chair: Tavon Nicole MD GFR, Amer >60 Normal >60 [facility] Comment on above: Performed By: #### T ROPI, LACTIC, CMPX, CBC #### [facility] [address] [place] [address] English Division Chair: Tavon Nicole MD GFR,non Amer >60 Normal >60 [facility] Comment on above: Performed By: #### T ROPI, LACTIC, CMPX, CBC #### [facility] [address] [place] [address] English Division Chair: Tavon Nicole MD Glucose [Mass/Vol] 81 mg/dL Normal 70-99 [facility] Comment on above: Performed By: #### T ROPI, LACTIC, CMPX, CBC #### [facility] [place], [place] [phone] English Division Chair: Tavon Nicole MD Potassium [Moles/Vol] 3.9 mmol/L Normal 3.7-5.3 [facility] Comment on above: Performed By: #### T ROPI, LACTIC, CMPX, CBC #### [facility] [address] [place] [phone] English Division Chair: Tavon Nicole MD Protein [Mass/Vol] 6.0 g/dL Low 6.4-8.3 [facility] Comment on above: Performed By: #### T ROPI, LACTIC, CMPX, CBC #### [facility] [address] [place] [phone] English Division Chair: Tavon Nicole MD Sodium [Moles/Vol] 139 mmol/L Normal 135-144 [facility] Comment on above: Performed By: #### T ROPI, LACTIC, CMPX, CBC #### [facility] [address] [place] [phone] English Division Chair: Tavon Nicole MD Urea nitrogen [Mass/Vol] 10 mg/dL Normal 6-20 [facility] Comment on above: Performed By: #### T ROPI, LACTIC, CMPX, CBC #### [facility] [address] [place] [address] [phone] [employer] Division Chair: Tavon Nicole MD Comprehensive Metabolic Pane l w/ Reflex to MGon 10-19-2021 Albumin [Mass/Vol] 3.5 g/dL 3.5 - 5.2 g/dL [facility] Albumin/Globulin [Mass ratio] 1.4 {ratio} 1 - 2.5 [facility] ALP (Bld) [Catalytic activity/Vol] 69 U/L 35 - 104 U/L [facility] ALT [Catalytic activity/Vol] 15 U/L 5 - 33 U/L [facility] Anion gap [Moles/Vol] 13 mmol/L 9 - 17 mmol/L [facility] AST [Catalytic activity/Vol] 12 U/L NINF - 32 U/L [facility] Bilirubin [Mass/Vol] 0.24 mg/dL Low 0.3 - 1 .2 mg/dL [facility] Calcium [Mass/Vol] 8.1 mg/dL Low 8.6 - 10. 4 mg/dL [facility] Chloride [Moles/Vol] 107 mmol/L 98 - 10 7 mmol/L [facility] CO2 [Moles/Vol] 19 mmol/L Low 20 - 31 mmol/L [facility] Creatinine [Mass/Vol] 0.53 mg/dL 0.5 - 0.9 mg/dL [facility] Free PSA/Total PSA [Mass fraction] 6.0 g/dL Low 6.4 - 8.3 g/dL [facility] GFR >60 60 - PI NF mL/min [facility] GFR Non- >60 60 - PINF mL/min [facility] GFR/1.73 sq M.predicted MDRD (S/P/Bld) [Vol rate/Area] [facility] Comment on above: Average GFR for 20-2 9 years old: 116 mL/min/1.73sq m Chronic Kidney Disease: <60 mL/min/1.73sq m Kidney failure: <15 mL/min/1.73sq m eGFR calculated using average adult body mass. Additional eGFR calculator available at: http://www.[employer]Tran.[employer]/multiple_crcl_2011.htm Glucose [Mass/Vol] 81 mg/dL 70 - 99 mg/dL [facility] Interpretation and review of laboratory results Abnormal [facility] Potassium [Moles/Vol] 3.9 mmol/L 3.7 - 5.3 mmol/L [facility] Sodium [Moles/Vol] 139 mmol/L 135 - 144 mmol/L [facility] Urea nitrogen (BldV) [Mass/Vol] 10 mg/dL 6 - 20 mg/dL [facility] Covid-19 PCR (CVDTBH)on 09-22 SARS-CoV-2 (COVID-19) RNA SAURABH+probe Ql (Unsp spec) Not detected Normal NOT DETECTED [facility] Comment on above: Result Comment: When [...] for this test is supported by the [place] of Health and Human Service's declaration that [...] used). Performed By: #### C VDTB #### [facility] [address] [place] [address] Dr. Ibis Jimenez DRUG SCREEN RAPID (URINE)on 10-19-2021 AMP Negative Normal NEGATIVE [facility] Comment on above: Performed By: #### B MP #### [facility] [address] [place] [address] Dr. Ibis Jimenez BAR Positive Abnormal NEGATIVE [facility] [facility] Comment on above: Performed By: #### B MP #### [facility] [address] [place] [address] Dr. Ibis Jimenez BUP Negative Normal NEGATIVE [facility] Comment on above: Performed By: #### B MP #### [facility] [address] [place] [address] Dr. Ibis Jimenez BZO Positive Abnormal NEGATIVE [facility] Comment on above: Performed By: #### B MP #### [facility] [address] [place] [address] Dr. Ibis Jimenez SEMAJ Negative Normal NEGATIVE [facility] Comment on above: Performed By: #### B MP #### [facility] [address] [place] [address] Dr. Ibis Jimenez CUT-OFFS SEE BELOW Normal [facility] Comment on above: Result Comment: AMP (Amphetamine): 500ng/mL, BAR (Barbituates): 200 ng/mL, BZO (Benzodiazepines): 150 ng/mL, BUP (Buprenorphine): 10 ng/mL, SEMAJ (Cocaine): 150 ng/mL, mAMP (Methamphetamine): 500 ng/mL, MTD (Methadone): 200 ng/mL, OPI (Opiates): 100 ng/mL, OXY (Oxycodone): 100 ng/mL, PCP (Phencyclidine): 25 ng/mL, PPX (Propoxyphene): 300 ng/mL, THC (Cannabinoids): 50 ng/mL, TCA (Trycyclic Antidepressants): 300 ng/mL Performed By: #### B MP #### [facility] [address] [place] [address] Dr. Ibis Jimenez DRUG CUT HEADER DRUG CLASS TEST SYSTEM CUT-OFF CONCENTRATIONS ARE FOLLOWS: Normal [facility] Comment on above: Performed By: #### B MP #### [facility] [address] [place] [address] Dr. Ibis Jimenez mAMP Negative Normal NEGATIVE [facility] Comment on above: Performed By: #### B MP #### [facility] [address] [place] [address] Dr. Ibis Jimenez MTD Negative Normal NEGATIVE [facility] Comment on above: Performed By: #### B MP #### [facility] [address] [place] [address] Dr. Ibis Jimenez OPI Positive Abnormal NEGATIVE [facility] Comment on above: Performed By: #### B MP #### [facility] [address] [place] [address] Dr. Ibis Jimenez OXY Positive Abnormal NEGATIVE [facility] Comment on above: Performed By: #### B MP #### [facility] [address] [place] [address] Dr. Ibis Jimenez PCP Negative Normal NEGATIVE [facility] Comment on above: Performed By: #### B MP #### [facility] [address] [place] [address] Dr. Ibis Jimenez PPX Negative Normal NEGATIVE [facility] Comment on above: Performed By: #### B MP #### [facility] [address] [place] [address] Dr. Ibis Jimenez TCA Negative Normal NEGATIVE [facility] Comment on above: Performed By: #### B MP #### [facility] [address] [place] [address] Dr. Ibis Jimenez THC Negative Normal NEGATIVE [facility] Comment on above: Performed By: #### B MP #### [facility] [address] [place] [address] Dr. Ibis Jimenez ER URINE PROFILEon 2 Bilirubin Ql (U) Negative Normal NEGATIVE [facility] Comment on above: Performed By: #### B MP #### [facility] [address] [place] [address] Dr. Ibis Jimenez Clarity (U) CLEAR Normal CLEAR [facility] Comment on above: Performed By: #### B MP #### [facility] [address] [place] [address] Dr. Ibis Jimenez Color (U) YELLOW Normal YELLOW [facility] Comment on above: Performed By: #### B MP #### [facility] [address] [place] [address] Dr. Ibis RODRIGUEZ A micrscopic examination will be performed if indicated. Normal [facility] Comment on above: Performed By: #### B MP #### [facility] [address] [place] [address] Dr. Ibis Jimenez Glucose Ql (U) Negative Normal NEGATIVE [facility] Comment on above: Performed By: #### B MP #### [facility] [address] [place] [address] Dr. Ibis Jimenez Hemoglobin Ql (U) TRACE-INTACT Abnormal NEGATIVE [facility] Comment on above: Performed By: #### B MP #### [facility] [address] [place] [address] Dr. Ibis Jimenez Ketones Ql (U) Negative Normal NEGATIVE [facility] Comment on above: Performed By: #### B MP #### [facility] [address] [place] [address] Dr. Ibis Jimenez LEUKOCYTES Negative Normal NEGATIVE [facility] Comment on above: Performed By: #### B MP #### [facility] [address] [place] [address] Dr. Ibis Jimenez Nitrite Ql (U) Negative Normal NEGATIVE [facility] Comment on above: Performed By: #### B MP #### [facility] [address] [place] [address] Dr. Ibis Jimenez pH (U) 5.5 [pH] Normal 5-9 [facility] Comment on above: Performed By: #### B MP #### [facility] [address] [place] [address] Dr. Ibis Jimenez SPEC GRAVITY >=1.030 Abnormal 1.005-<=1.02 5 [facility] Comment on above: Performed By: #### B MP #### [facility] [address] [place] [address] Dr. Ibis Jimenez UA PROTEIN Negative Normal NEGATIVE/ TRACE [facility] Comment on above: Performed By: #### B MP #### [facility] [address] [place] [address] Dr. Ibis Jimenez UR MICRO IND INDICATED Normal [facility] Comment on above: Performed By: #### B MP #### [facility] [address] [place] [address] Dr. Ibis Jimenez Urobilinogen Qn (U) 0.2 {Dinorah'U}/dL Normal 0.2 - 1. 0 [facility] Comment on above: Performed By: #### B MP #### [facility] [address] [place] [address] Dr. Ibis Jimenez LACTATE/LACTIC ACIDon 2021 Lactate [Moles/Vol] 1.2 mmol/L Normal 0.4-1.9 [facility] Comment on above: Performed By: #### A MM #### [facility] [address] [place] [address] Dr. Ibis Jimenez Lactic Acidon 10-19-2021 Lactic Acid,Whole Bl 0.9 mmol/L Normal 0.7-2.1 [facility] Comment on above: Performed By: #### T ROPI, LACTIC, CMPX, CBC #### [facility] [address] [place] [address] [employer] Division Chair: Tavon Nicole MD Lactic Acid, Whole Blood 0.9 mmol/L 0.7 - 2.1 mmol/L [facility] MONOon 10-19-2021 Monocytes (Bld) [#/Vol] Negative Normal NEGATIVE T [facility] Comment on above: Performed By: #### M DAVID #### [facility] [address] [address] [address] Ibis Jimenez MRI BRAIN W WO [...] Carlos Marks DO 10/19/21 Final result Normal [facility] Unremarkable MR brain. [facility] RIS CONSOLIDATED EXAMINATION: MRI OF [...] The soft tissues demonstrate no acute abnormality. [facility] RIS CONSOLIDATED Carlos Marks DO - 10/19/2021 [...] abnormality. IMPRESSION: Unremarkable MR brain. JEREMIAH BURROWS [employer] Work Phone: Radiology Study observation (narrative) JEREMIAH HEATH [employer] Work Phone: MRI BRAIN W WO CONTRASTOrder ed By: Carlos Marks on 10-19-2021 JEREMIAH BURROWS [employer] Work Phone: PH VENOUS BLOODon 10-19-2021 PCO2 VENOUS 36.6 mmHg Critically low 40.0-52.[address] [facility] Comment on above: Performed By: #### B MP #### [facility] [address] [address] [address] Ibis Jimenez pH VENOUS 7.387 Normal 7.330-7.430 [facility] Comment on above: Performed By: #### B MP #### [facility] [address] [place] [address] Dr. Ibis Jimenez PROF CHEM 8 (BAS METB)on Anion gap [Moles/Vol] 11.9 mmol/L Normal [facility] Comment on above: Performed By: #### M DAVID #### [facility] [address] [address] [address] Ibis Jimenez Calcium [Mass/Vol] 9.1 mg/dL Normal 8.5-10.1 [facility] Comment on above: Performed By: #### M DAVID #### [facility] [address] [address] [address] Ibis Jimenez Chloride [Moles/Vol] 104 mmol/L Normal 98-107 [facility] Comment on above: Performed By: #### M DAVID #### [facility] [address] [address] [address] Ibis Jimenez CO2 [Moles/Vol] 26.7 mmol/L Normal 21.0-32.0 [facility] Comment on above: Performed By: #### M DAVID #### [facility] [address] [address] [address] Ibis Jimenez Creatinine [Mass/Vol] 0.78 mg/dL Normal 0.55-1.02 [facility] Comment on above: Performed By: #### M DAVID #### [facility] [address] [address] [address] Ibis Jimenez EGFR-AF SAMOAN >60 Normal >=60 [facility] Comment on above: Performed By: #### M DAVID #### [facility] [address] [address] [address] Ibis Jimenez EGFR-NON AF SAMOAN >60 Normal >=60 [facility] Comment on above: Performed By: #### M DAVID #### [facility] [address] [address] [address] Ibis Jimenez Glucose [Mass/Vol] 96 mg/dL Normal 74-106 [facility] Comment on above: Performed By: #### M DAVID #### [facility] [address] [address] [address] Ibis Jimenez Potassium [Moles/Vol] 3.6 mmol/L Normal 3.5-5.1 [facility] Comment on above: Performed By: #### M DAVID #### [facility] [address] [address] [address] Ibis Jimenez Sodium [Moles/Vol] 139 mmol/L Normal 136-145 [facility] Comment on above: Performed By: #### M DAVID #### [facility] [address] [address] [address] Ibis Jimenez Urea nitrogen [Mass/Vol] 14.0 mg/dL Normal 7.0-18.0 [facility] Comment on above: Performed By: #### M DAVID #### [facility] [address] [address] [address] Ibis Jimenez Urea nitrogen/Creatinine [Mass ratio] 17.9 mg/mg Normal [facility] Comment on above: Performed By: #### M DAVID #### [facility] [address] [address] [address] Ibis Jimenez TSHon 10-19-2021 TSH 1.389 uIU/mL Normal 0.358-3.740 [facility] Comment on above: Performed By: #### A CET, SALYC #### [facility] [address] [address] [address] Ibis Jimenez Troponinon 10-19-2021 Troponin, High Sens <6 Normal 0-14 [facility] Comment on above: Result Comment: High Sensitivity Troponin values cannot be compared with other Troponin methodologies. Patients with high levels of Biotin oral intake (i.e >5mg/day) may have falsely decreased Troponin levels. Samples collected within 8 hours of biotin intake may require additional information for diagnosis. Performed By: #### T ROPI, LACTIC, CMPX, CBC #### [facility] [address] [place] [address] [employer] Division Chair: Tavon Nicole MD Troponin, High Sensitivity ng/L 0 - 14 ng/L [facility] Comment on above: High Sensitivity Troponin values cannot be compared with other Troponin methodologies. Patients with high levels of Biotin oral intake (i.e >5mg/day) may have falsely decreased Troponin levels. Samples collected within 8 hours of biotin intake may require additional information for diagnosis. [facility] URINE MICROSCOPIC ONLYon BACTERIA TRACE Abnormal NONE SEEN [facility] Comment on above: Performed By: #### B MP #### [facility] [address] [address] [address] Ibis Jimenez Bacteria identified Cx Nom (U) NOT INDICATED Normal [facility] Comment on above: Performed By: #### B MP #### [facility] [address] [address] [address] Ibis Jimenez CAST NONE SEEN Normal NONE SEEN [facility] Comment on above: Performed By: #### B MP #### [facility] [address] [address] [address] Ibis Jimenez Crystals LM Nom (Urine sed) NONE SEEN Normal NONE SEEN [facility] Comment on above: Performed By: #### B MP #### [facility] [address] [address] [address] Ibis Jimenez Epithelial cells LM Ql (Urine sed) RARE Normal NONE SEEN /RARE [facility] Comment on above: Performed By: #### B MP #### [facility] [address] [address] [address] Ibis Jimenez MUCOUS LARGE Abnormal NONE SEEN [facility] Comment on above: Performed By: #### B MP #### [facility] [id number] Ibis Jimenez RBC 2-5 Abnormal 0-[address] [facility] Comment on above: Performed By: #### B MP #### [facility] [address] [address] [address] Ibis Jimenez WBC 0-2 Abnormal NONE SEEN [facility] Comment on above: Performed By: #### B MP #### [facility] [address] [address] [address] ABD/PELVIS WO CONon [...] JASS LAURENT Date: 2021-10-06 20:08 Normal [facility] ER URINE PROFILEon 2 Bilirubin Ql (U) Negative Normal NEGATIVE [facility] Comment on above: Performed By: #### M DAVID #### [facility] [address] [address] [address] Ibis Jimenez Clarity (U) CLEAR Normal CLEAR [facility] Comment on above: Performed By: #### M DAVID #### [facility] [address] [place] [address] Dr. Ibis Jimenez Color (U) LT. YELLOW Normal YELLOW [facility] Comment on above: Performed By: #### M DAVID #### [facility] [address] [place] [address] Dr. Ibis RODRIGUEZ A micrscopic examination will be performed if indicated. Normal [facility] Comment on above: Performed By: #### M DAVID #### [facility] [address] [address] [address] Ibis Jimenez Glucose Ql (U) Negative Normal NEGATIVE [facility] Comment on above: Performed By: #### M DAVID #### [facility] [address] [place] [address] Dr. Ibis Jimenez Hemoglobin Ql (U) Negative Normal NEGATIVE [facility] Comment on above: Performed By: #### M DAVID #### [facility] [address] [address] [address] Ibis Jimenez Ketones Ql (U) Negative Normal NEGATIVE [facility] Comment on above: Performed By: #### M DAVID #### [facility] [address] [address] [address] Ibis Jimenez LEUKOCYTES Negative Normal NEGATIVE [facility] Comment on above: Performed By: #### M DAVID #### [facility] [address] [address] [address] Ibis Jimenez Nitrite Ql (U) Negative Normal NEGATIVE [facility] Comment on above: Performed By: #### M DAVID #### [facility] [address] [address] [address] Ibis Jimenez pH (U) 8.0 [pH] Normal 5-9 [facility] Comment on above: Performed By: #### M DAVID #### [facility] [address] [address] [address] Ibis Jimenez SPEC GRAVITY 1.010 Normal 1.005-<=1.02 5 [facility] Comment on above: Performed By: #### M DAVID #### [facility] [address] [address] [address] Ibis Jimenez UA PROTEIN Negative Normal NEGATIVE/ TRACE [facility] Comment on above: Performed By: #### M DAVID #### [facility] [address] [place] [address] Dr. Ibis Jimenez UR MICRO IND NOT INDICATED Normal [facility] Comment on above: Performed By: #### M DAVID #### [facility] [address] [address] [address] Ibis Jimenez Urobilinogen Qn (U) 0.2 {Dinorah'U}/dL Normal 0.2 - 1. 0 [facility] Comment on above: Performed By: #### M DAVID #### [facility] [address] [place] [address] Dr. Ibis Jimenez ER URINE PROFILEon 2 Bilirubin Ql (U) Negative Normal NEGATIVE [facility] Comment on above: Performed By: #### C VDTBH #### [facility] [address] [place] [address] Dr. Ibis Jimenez Clarity (U) CLEAR Normal CLEAR [facility] Comment on above: Performed By: #### C VDTBH #### [facility] [address] [place] [address] Dr. Ibis Jimenez Color (U) YELLOW Normal YELLOW [facility] Comment on above: Performed By: #### C VDTBH #### [facility] [address] [place] [address] Dr. Ibis RODRIGUEZ A micrscopic examination will be performed if indicated. Normal [facility] Comment on above: Performed By: #### C VDTBH #### [facility] [address] [place] [address] Dr. Ibis Jimenez Glucose Ql (U) Negative Normal NEGATIVE [facility] Comment on above: Performed By: #### C VDTBH #### [facility] [address] [place] [address] Dr. Ibis Jimenez Hemoglobin Ql (U) Negative Normal NEGATIVE [facility] Comment on above: Performed By: #### C VDTBH #### [facility] [address] [place] [address] Dr. Ibis Jimenez Ketones Ql (U) Negative Normal NEGATIVE [facility] Comment on above: Performed By: #### C VDTBH #### [facility] [address] [place] [address] Dr. Ibis Jimenez LEUKOCYTES Negative Normal NEGATIVE [facility] Comment on above: Performed By: #### C VDTBH #### [facility] [address] [place] [address] Dr. Ibis Jimenez Nitrite Ql (U) Negative Normal NEGATIVE [facility] Comment on above: Performed By: #### C VDTBH #### [facility] [address] [place] [address] Dr. Ibis Jimenez pH (U) 6.0 [pH] Normal 5-9 [facility] Comment on above: Performed By: #### C VDTBH #### [facility] [address] [place] [address] Dr. Ibis Jimenez SPEC GRAVITY 1.025 Normal 1.005-<=1.02 5 [facility] Comment on above: Performed By: #### C VDTBH #### [facility] [address] [place] [address] Dr. Ibis Jimenez UA PROTEIN Negative Normal NEGATIVE/ TRACE [facility] Comment on above: Performed By: #### C VDTBH #### [facility] [address] [place] [address] Dr. Ibis Jimenez UR MICRO IND NOT INDICATED Normal [facility] Comment on above: Performed By: #### C VDTBH #### [facility] [address] [place] [address] Dr. Ibis Jimenez Urobilinogen Qn (U) 0.2 {Dinorah'U}/dL Normal 0.2 - 1. 0 [facility] Comment on above: Performed By: #### C VDTBH #### [facility] [address] [place] [address] Dr. Ibis Jimenez CBC AUTO DIFFon 10-03-2021 BASO # 0.0 103/ul Normal 0.0-0.1 [facility] Comment on above: Performed By: #### B MP #### [facility] [address] [place] [address] Dr. Ibis Jimenez Basophils/100 WBC (Bld) 0.3 % Normal 0.2-2.0 [facility] Comment on above: Performed By: #### B MP #### [facility] [address] [place] [address] Dr. Ibis Jimenez EO # 0.3 103/ul Normal 0.0-0.7 [facility] Comment on above: Performed By: #### B MP #### [facility] [address] [place] [address] Dr. Ibis Jimenez Eosinophils/100 WBC (Bld) 4.1 % Normal 0.9-7.0 [facility] Comment on above: Performed By: #### B MP #### [facility] [address] [place] [address] Dr. Ibis Jimenez Erythrocyte distribution width (RBC) [Ratio] 13.2 % Normal 11.0-15.0 [facility] Comment on above: Performed By: #### B MP #### [facility] [address] [place] [address] Dr. Ibis Jimenez Hematocrit (Bld) [Volume fraction] 35.7 % Critically low 36.0-48.0 [facility] Comment on above: Performed By: #### B MP #### [facility] [address] [place] [address] Dr. Ibis Jimenez Hemoglobin (Bld) [Mass/Vol] 11.6 g/dL Critically low 12.0-16.[address] [facility] Comment on above: Performed By: #### B MP #### [facility] [address] [place] [address] Dr. Ibis Jimenez IG # 0.02 10e3/ul Normal 0.00-0.[address] [facility] Comment on above: Performed By: #### B MP #### [facility] [address] [place] [address] Dr. Ibis Jimenez IG % 0.3 % Normal 0.0-0.[address] [facility] Comment on above: Performed By: #### B MP #### [facility] [address] [place] [address] Dr. Ibis Jimenez LYMPH # 1.5 103/ul Normal 1.2-3.[address] [facility] Comment on above: Performed By: #### B MP #### [facility] [address] [place] [address] Dr. Ibis Jmienez Lymphocytes/100 WBC (Bld) 24.3 % Normal 20.5-60.[address] [facility] Comment on above: Performed By: #### B MP #### [facility] [address] [place] [address] Dr. Ibis Jimenez MANUAL DIFF REQ NO Normal [facility] [facility] Comment on above: Performed By: #### B MP #### [facility] [address] [place] [address] Dr. Ibis Jimenez MCH (RBC) [Entitic mass] 28.9 pg Normal 26.7-34.[address] [facility] Comment on above: Performed By: #### B MP #### [facility] [address] [place] [address] Dr. Ibis Jimenez MCHC (RBC) [Mass/Vol] 32.5 g/dL Normal 29.9-35.[address] [facility] Comment on above: Performed By: #### B MP #### [facility] [address] [place] [address] Dr. Ibis Jimenez MCV (RBC) [Entitic vol] 89.0 fL Normal 81.0-99.0 [facility] Comment on above: Performed By: #### B MP #### [facility] [address] [place] [address] Dr. Ibis Jimenez MONO # 0.5 103/ul Normal 0.3-0.8 [facility] Comment on above: Performed By: #### B MP #### [facility] [address] [address] [address] Ibis Jimenez Monocytes/100 WBC (Bld) 7.3 % Normal 1.7-12.0 [facility] Comment on above: Performed By: #### B MP #### [facility] [address] [place] [address] Dr. Ibis Jimenez NEUT # 4.0 103/ul Normal 1.4-6.5 [facility] Comment on above: Performed By: #### B MP #### [facility] [address] [place] [address] Dr. Ibis Jimenez Neutrophils/100 WBC (Bld) 63.7 % Normal 43.0-75.0 [facility] Comment on above: Performed By: #### B MP #### [facility] [address] [place] [address] Dr. Ibis Jimenez Platelet mean volume (Bld) [Entitic vol] 9.7 fL Normal 9.5-13.5 [facility] Comment on above: Performed By: #### B MP #### [facility] [address] [place] [address] Dr. Ibis Jimenez PLT 237 103/ul Normal 150-[address] [facility] Comment on above: Performed By: #### B MP #### [facility] [address] [place] [address] Dr. Ibis Jimenez RBC 4.01 106/ul Critically low 4.20-5.[address] [facility] Comment on above: Performed By: #### B MP #### [facility] [address] [place] [address] Dr. Ibis Jimenez WBC 6.3 103/ul Normal 4.0-11.0 [facility] Comment on above: Performed By: #### B MP #### [facility] [address] [place] [address] Dr. Ibis Jimenez LACTATE/LACTIC ACIDon 2021 Lactate [Moles/Vol] 1.2 mmol/L Normal 0.4-1.9 [facility] Comment on above: Performed By: #### A MM #### [facility] [address] [place] [address] Dr. Ibis Jimenez BUNon 10-02-2021 Urea nitrogen [Mass/Vol] 7.0 mg/dL Normal 7.0-18.0 [facility] Comment on above: Performed By: #### C VDTB #### [facility] [address] [place] [address] Dr. Ibis Jimenez CBC AUTO DIFFon 10-02-2021 BASO # 0.0 103/ul Normal 0.0-0.1 [facility] Comment on above: Performed By: #### A MM #### [facility] [address] [place] [address] Dr. Ibis Jimenez Basophils/100 WBC (Bld) 0.2 % Normal 0.2-2.0 [facility] Comment on above: Performed By: #### A MM #### [facility] [address] [place] [address] Dr. Ibis Jimenez EO # 0.0 103/ul Normal 0.0-0.7 [facility] Comment on above: Performed By: #### A MM #### [facility] [address] [place] [address] Dr. Ibis Jimenez Eosinophils/100 WBC (Bld) 0.3 % Critically low 0.9-7.0 [facility] Comment on above: Performed By: #### A MM #### [facility] [address] [place] [address] Dr. Ibis Jimenez Erythrocyte distribution width (RBC) [Ratio] 12.7 % Normal 11.0-15.0 [facility] Comment on above: Performed By: #### A MM #### [facility] [address] [place] [address] Dr. Ibis Jimenez Hematocrit (Bld) [Volume fraction] 43.4 % Normal 36.0-48.0 [facility] Comment on above: Performed By: #### A MM #### [facility] [address] [place] [address] Dr. Ibis Jimenez Hemoglobin (Bld) [Mass/Vol] 14.6 g/dL Normal 12.0-16.0 [facility] Comment on above: Performed By: #### A MM #### [facility] [address] [place] [address] Dr. Ibis Jimenez IG # 0.03 10e3/ul Normal 0.00-0.03 [facility] Comment on above: Performed By: #### A MM #### [facility] [address] [place] [address] Dr. Ibis Jimenez IG % 0.3 % Normal 0.0-0.5 [facility] Comment on above: Performed By: #### A MM #### [facility] [address] [place] [address] Dr. Ibis Jimenez LYMPH # 1.2 103/ul Normal 1.2-3.8 [facility] Comment on above: Performed By: #### A MM #### [facility] [address] [place] [address] Dr. Ibis Jimenez Lymphocytes/100 WBC (Bld) 11.6 % Critically low 20.5-60.0 [facility] Comment on above: Performed By: #### A MM #### [facility] [address] [place] [address] Dr. Ibis Jimenez MANUAL DIFF REQ NO Normal [facility] Comment on above: Performed By: #### A MM #### [facility] [address] [place] [address] Dr. Ibis Jimenez MCH (RBC) [Entitic mass] 28.5 pg Normal 26.7-34.0 [facility] Comment on above: Performed By: #### A MM #### [facility] [address] [place] [address] Dr. Ibis Jimenez MCHC (RBC) [Mass/Vol] 33.6 g/dL Normal 29.9-35.2 [facility] Comment on above: Performed By: #### A MM #### [facility] [address] [address] [address] Ibis Jimenez MCV (RBC) [Entitic vol] 84.6 fL Normal 81.0-99.0 [facility] Comment on above: Performed By: #### A MM #### [facility] [address] [place] [address] Dr. Ibis Jimenez MONO # 0.6 103/ul Normal 0.3-0.8 [facility] Comment on above: Performed By: #### A MM #### [facility] [address] [place] [address] Dr. Ibis Jimenez Monocytes/100 WBC (Bld) 5.9 % Normal 1.7-12.0 [facility] Comment on above: Performed By: #### A MM #### [facility] [address] [place] [address] Dr. Ibis Jimenez NEUT # 8.2 103/ul Critically high 1.4-6.[address] [facility] Comment on above: Performed By: #### A MM #### [facility] [address] [place] [address] Dr. Ibis Jimenez Neutrophils/100 WBC (Bld) 81.7 % Critically high 43.0-75.0 [facility] Comment on above: Performed By: #### A MM #### [facility] [address] [place] [address] Dr. Ibis Jimenez Platelet mean volume (Bld) [Entitic vol] 9.8 fL Normal 9.5-13.5 [facility] Comment on above: Performed By: #### A MM #### [facility] [address] [place] [address] Dr. Ibis Jimenez PLT 264 103/ul Normal 150-[address] [facility] Comment on above: Performed By: #### A MM #### [facility] [address] [place] [address] Dr. Ibis Jimenez RBC 5.13 106/ul Normal 4.20-5.40 [facility] Comment on above: Performed By: #### A MM #### [facility] [address] [place] [address] Dr. Ibis Jimenez WBC 10.1 103/ul Normal 4.0-11.0 [facility] Comment on above: Performed By: #### A MM #### [facility] [address] [place] [address] Dr. Ibis Jimenez CREATININEon 10-02-2021 Creatinine [Mass/Vol] 0.69 mg/dL Normal 0.55-1.02 [facility] Comment on above: Performed By: #### C VDTBH #### [facility] [address] [place] [address] Dr. Ibis Jimenez EGFR-AF SAMOAN >60 Normal >=60 [facility] Comment on above: Performed By: #### C VDTBH #### [facility] [address] [place] [address] Dr. Ibis Jimenez EGFR-NON AF SAMOAN >60 Normal >=60 [facility] Comment on above: Performed By: #### C VDTBH #### [facility] [address] [place] [address] Dr. Ibis Jimenez CBC AUTO DIFFon 10-01-2021 BASO # 0.0 103/ul Normal 0.0-0.1 [facility] Comment on above: Performed By: #### A MM #### [facility] [address] [place] [address] Dr. Ibis Jimenez Basophils/100 WBC (Bld) 0.3 % Normal 0.2-2.0 [facility] Comment on above: Performed By: #### A MM #### [facility] [address] [place] [address] Dr. Ibis Jimenez EO # 0.1 103/ul Normal 0.0-0.7 [facility] Comment on above: Performed By: #### A MM #### [facility] [address] [place] [address] Dr. Ibis Jimenez Eosinophils/100 WBC (Bld) 1.9 % Normal 0.9-7.0 [facility] Comment on above: Performed By: #### A MM #### [facility] [address] [place] [address] Dr. Ibis Jimenez Erythrocyte distribution width (RBC) [Ratio] 12.7 % Normal 11.0-15.0 [facility] Comment on above: Performed By: #### A MM #### [facility] [address] [place] [address] Dr. Ibis Jimenez Hematocrit (Bld) [Volume fraction] 38.1 % Normal 36.0-48.0 [facility] Comment on above: Performed By: #### A MM #### [facility] [address] [place] [address] Dr. Ibis Jimenez Hemoglobin (Bld) [Mass/Vol] 12.7 g/dL Normal 12.0-16.0 [facility] Comment on above: Performed By: #### A MM #### [facility] [address] [place] [address] Dr. Ibis Jimenez IG # 0.02 10e3/ul Normal 0.00-0.03 [facility] Comment on above: Performed By: #### A MM #### [facility] [address] [place] [address] Dr. Ibis Jimenez IG % 0.3 % Normal 0.0-0.5 [facility] Comment on above: Performed By: #### A MM #### [facility] [address] [place] [address] Dr. Ibis Jimenez LYMPH # 1.9 103/ul Normal 1.2-3.[address] [facility] Comment on above: Performed By: #### A MM #### [facility] [address] [place] [address] Dr. Ibis Jimenez Lymphocytes/100 WBC (Bld) 30.5 % Normal 20.5-60.0 [facility] Comment on above: Performed By: #### A MM #### [facility] [address] [place] [address] Dr. Ibis Jimenez MANUAL DIFF REQ NO Normal [facility] Comment on above: Performed By: #### A MM #### [facility] [address] [place] [address] Dr. Ibis Jimenez MCH (RBC) [Entitic mass] 28.3 pg Normal 26.7-34.0 [facility] Comment on above: Performed By: #### A MM #### [facility] [address] [place] [address] Dr. Ibis Jimenez MCHC (RBC) [Mass/Vol] 33.3 g/dL Normal 29.9-35.2 [facility] Comment on above: Performed By: #### A MM #### [facility] [address] [place] [address] Dr. Ibis Jimenez MCV (RBC) [Entitic vol] 85.0 fL Normal 81.0-99.0 [facility] Comment on above: Performed By: #### A MM #### [facility] [address] [place] [address] Dr. Ibis Jimenez MONO # 0.3 103/ul Normal 0.3-0.8 [facility] Comment on above: Performed By: #### A MM #### [facility] [address] [place] [address] Dr. Ibis Jimenez Monocytes/100 WBC (Bld) 5.2 % Normal 1.7-12.0 [facility] Comment on above: Performed By: #### A MM #### [facility] [address] [place] [address] Dr. Ibis Jimenez NEUT # 3.9 103/ul Normal 1.4-6.5 [facility] Comment on above: Performed By: #### A MM #### [facility] [address] [place] [address] Dr. Ibis Jimenez Neutrophils/100 WBC (Bld) 61.8 % Normal 43.0-75.0 [facility] Comment on above: Performed By: #### A MM #### [facility] [address] [place] [address] Dr. Ibis Jimenez Platelet mean volume (Bld) [Entitic vol] 9.7 fL Normal 9.5-13.5 [facility] Comment on above: Performed By: #### A MM #### [facility] [address] [address] [address] Ibis Jimenez PLT 255 103/ul Normal 150-450 [facility] Comment on above: Performed By: #### A MM #### [facility] [id number] Ibis Jimenez RBC 4.48 106/ul Normal 4.20-5.40 [facility] Comment on above: Performed By: #### A MM #### [facility] [address] [address] [address] Ibis Jimenez WBC 6.3 103/ul Normal 4.0-11.0 [facility] Comment on above: Performed By: #### A MM #### [facility] [address] [place] [address] Dr. Ibis Jimenez PREG HCG QUALon 10-01-2021 , QUAL Negative Normal NEGATIVE [facility] Comment on above: Performed By: #### M DAVID #### [facility] [address] [place], [place] [address] Dr. Ibis Jimenez [facility]20 SARS-CoV-2 (COVID-19) RNA SAURABH+probe Ql (Unsp spec) Not detected Normal NOT DETECTED [facility] Comment on above: Result Comment: This test is not yet approved or cleared by the [place] FDA. When there are no FDA-approved or cleared tests available, and other criteria are met, FDA can make tests available under an emergency access mechanism called an Emergency Use Authorization (EUA). The EUA for this test is supported by the [place] of Health and Human Service's (HHS's) declaration [...] SARS-CoV-2. Performed By: #### B MP #### [facility] [address] [place] [address] Dr. Ibis Jimenez TYPE AND SCREENon 09-29-2021 TYPE AND SCREEN Negative Normal [facility] Comment on above: Performed By: #### B MP #### [facility] [address] [place] [address] Dr. Ibis Jimenez Covid-19 PCR ([facility])on SARS-CoV-2 (COVID-19) RNA SAURABH+probe Ql (Unsp spec) Not detected Normal NOT DETECTED [facility] Comment on above: Result Comment: This test is not yet approved or cleared by the [place] FDA. When there are no FDA-approved or cleared tests available, and other criteria are met, FDA can make tests available under an emergency access mechanism called an Emergency Use Authorization (EUA). The EUA for this test is supported by the [employer] of Health and Human Service's (HHS's) declaration [...] SARS-CoV-2. Performed By: #### C VDTBH #### [facility] [address] [place], [place] [id number] Dr. Ibis Jimenez TYPE AND SCREENon 09-21-2021 TYPE AND SCREEN Negative Normal [facility] Comment on above: Performed By: #### B MP #### [facility] [address] [place], [place] [id number] Dr. Ibis Jimenez CHLAMYDIA/GONOCOCCUS SAURABH (SW AB/URINE/PAPon 08-17-2021 Chlamydia trachomatis, SAURABH Negative Normal Negative [facility] Comment on above: Performed By: #### A KORI DAVIS #### [facility] [address] [place] [address] Dr. Ibis Jimenez Neisseria gonorrhoeae, SAURABH Negative Normal Negative [facility] Comment on above: Performed By: #### A RYAN SALYC #### [facility] [address] [place] [address] Dr. Ibis Jimenez CBC AUTO DIFFon 08-14-2021 BASO # 0.0 103/ul Normal 0.0-0.1 [facility] Comment on above: Performed By: #### C VDTBH #### [facility] [address] [place] [address] Dr. Ibis Jimenez Basophils/100 WBC (Bld) 0.3 % Normal 0.2-2.0 [facility] Comment on above: Performed By: #### C VDTBH #### [facility] [address] [place] [address] Dr. Ibis Jimenez EO # 0.2 103/ul Normal 0.0-0.7 [facility] Comment on above: Performed By: #### C VDTBH #### [facility] [address] [place] [address] Dr. Ibis Jimenez Eosinophils/100 WBC (Bld) 2.5 % Normal 0.9-7.0 [facility] Comment on above: Performed By: #### C VDTBH #### [facility] [address] [place] [address] Dr. Ibis Jimenez Erythrocyte distribution width (RBC) [Ratio] 13.0 % Normal 11.0-15.0 [facility] Comment on above: Performed By: #### C VDTBH #### [facility] [address] [place] [address] Dr. Ibis Jimenez Hematocrit (Bld) [Volume fraction] 38.1 % Normal 36.0-48.0 [facility] Comment on above: Performed By: #### C VDTBH #### [facility] [address] [place] [address] Dr. Ibis Jimenez Hemoglobin (Bld) [Mass/Vol] 12.8 g/dL Normal 12.0-16.0 [facility] Comment on above: Performed By: #### C VDTBH #### [facility] [address] [place] [address] Dr. Ibis Jimenez IG # 0.02 10e3/ul Normal 0.00-0.03 [facility] Comment on above: Performed By: #### C VDTBH #### [facility] [address] [place] [address] Dr. Ibis Jimenez IG % 0.3 % Normal 0.0-0.5 [facility] Comment on above: Performed By: #### C VDTBH #### [facility] [address] [place] [address] Dr. Ibis Jimenez LYMPH # 1.5 103/ul Normal 1.2-3.8 [facility] Comment on above: Performed By: #### C VDTBH #### [facility] [address] [place] [address] Dr. Ibis Jimenez Lymphocytes/100 WBC (Bld) 22.5 % Normal 20.5-60.0 [facility] Comment on above: Performed By: #### C VDTBH #### [facility] [address] [place] [address] Dr. Ibis Jimenez MANUAL DIFF REQ NO Normal [facility] Comment on above: Performed By: #### C VDTBH #### [facility] [address] [place] [address] Dr. Ibis Jimenez MCH (RBC) [Entitic mass] 28.6 pg Normal 26.7-34.[address] [facility] Comment on above: Performed By: #### C VDTBH #### [facility] [address] [place] [address] Dr. Ibis Jimenez MCHC (RBC) [Mass/Vol] 33.6 g/dL Normal 29.9-35.[address] [facility] Comment on above: Performed By: #### C VDTBH #### [facility] [address] [place] [address] Dr. Ibis Jimenez MCV (RBC) [Entitic vol] 85.0 fL Normal 81.0-99.0 [facility] Comment on above: Performed By: #### C VDTBH #### [facility] [address] [place] [address] Dr. Ibis Jimenez MONO # 0.4 103/ul Normal 0.3-0.8 [facility] Comment on above: Performed By: #### C VDTBH #### [facility] [address] [place] [address] Dr. Ibis Jimenez Monocytes/100 WBC (Bld) 6.3 % Normal 1.7-12.0 [facility] Comment on above: Performed By: #### C VDTBH #### [facility] [address] [place] [address] Dr. Ibis Jimenez NEUT # 4.6 103/ul Normal 1.4-6.5 [facility] Comment on above: Performed By: #### C VDTBH #### [facility] [address] [place] [address] Dr. Ibis Jimenez Neutrophils/100 WBC (Bld) 68.1 % Normal 43.0-75.0 [facility] Comment on above: Performed By: #### C VDTBH #### [facility] [address] [place] [address] Dr. Ibis Jimenez Platelet mean volume (Bld) [Entitic vol] 9.8 fL Normal 9.5-13.5 [facility] Comment on above: Performed By: #### C VDTBH #### [facility] [address] [place] [address] Dr. Ibis Jimenez PLT 243 103/ul Normal 150-[address] [facility] Comment on above: Performed By: #### C VDTBH #### [facility] [address] [place] [address] Dr. Ibis Jimenez RBC 4.48 106/ul Normal 4.20-5.40 [facility] Comment on above: Performed By: #### C VDTBH #### [facility] [address] [place] [address] Dr. Ibis Jimenez WBC 6.7 103/ul Normal 4.0-11.[address] [facility] Comment on above: Performed By: #### C VDTB #### [facility] [address] [place] [address] ABD/PELVIS WO CONon [...] NELI COTTO Date: 2021-08-14 18:00 Normal [address] [facility] ER URINE PROFILEon 2 Bilirubin Ql (U) SMALL Abnormal NEGATIVE [facility] Comment on above: Performed By: #### B MP #### [facility] [address] [place] [address] Dr. Ibis Jimenez Clarity (U) CLEAR Normal CLEAR [facility] Comment on above: Performed By: #### B MP #### [facility] [address] [place] [address] Dr. Ibis Jimenez Color (U) YELLOW Normal YELLOW [facility] Comment on above: Performed By: #### B MP #### [facility] [address] [place] [address] Dr. Ibis RODRIGUEZ A micrscopic examination will be performed if indicated. Normal [facility] Comment on above: Performed By: #### B MP #### [facility] [address] [place] [address] Dr. Ibis Jimenez Glucose Ql (U) Negative Normal NEGATIVE [facility] Comment on above: Performed By: #### B MP #### [facility] [facility] [address] [place] [address] Dr. Ibis Jimenez Hemoglobin Ql (U) SMALL Abnormal NEGATIVE [facility] Comment on above: Performed By: #### B MP #### [facility] [address] [place] [address] Dr. Ibis Jimenez Ketones Ql (U) TRACE Abnormal NEGATIVE [facility] Comment on above: Performed By: #### B MP #### [facility] [address] [place] [address] Dr. Ibis Jimenez LEUKOCYTES Negative Normal NEGATIVE [facility] Comment on above: Performed By: #### B MP #### [facility] [address] [place] [address] Dr. Ibis Jimenez Nitrite Ql (U) Negative Normal NEGATIVE [facility] Comment on above: Performed By: #### B MP #### [facility] [address] [place] [address] Dr. Ibis Jimenez pH (U) 5.5 [pH] Normal 5-9 [facility] Comment on above: Performed By: #### B MP #### [facility] [address] [place] [address] Dr. Ibis Jimenez SPEC GRAVITY >=1.030 Abnormal 1.005-<=1.02 5 [facility] Comment on above: Performed By: #### B MP #### [facility] [address] [place], [place] [id number] Dr. Ibis Jimenez UA PROTEIN TRACE Normal NEGATIVE/ TRACE [facility] Comment on above: Performed By: #### B MP #### [facility] [address] [place] [address] Dr. Ibis Jimenez UR MICRO IND INDICATED Normal [facility] Comment on above: Performed By: #### B MP #### [facility] [address] [place] [address] Dr. Ibis Jimenez Urobilinogen Qn (U) 1.0 {Dinorah'U}/dL Normal 0.2 - 1. 0 [facility] Comment on above: Performed By: #### B MP #### [facility] [address] [place] [address] Dr. Ibis Jimenez URon 08-14-2021 , QUAL Negative Normal NEGATIVE [facility] Comment on above: Performed By: #### B MP #### [facility] [address] [place] [address] Dr. Ibis Jimenez PROF CHEM 8 (BAS METB)on Anion gap [Moles/Vol] 15.3 mmol/L Normal [facility] Comment on above: Performed By: #### B MP #### [facility] [address] [place] [address] Dr. Ibis Jimenez Calcium [Mass/Vol] 8.4 mg/dL Critically low 8.5-10.[address] [facility] Comment on above: Performed By: #### B MP #### [facility] [address] [place] [address] Dr. Ibis Jimenez Chloride [Moles/Vol] 106 mmol/L Normal 98-107 [facility] Comment on above: Performed By: #### B MP #### [facility] [address] [place] [address] Dr. Ibis Jimenez CO2 [Moles/Vol] 22.3 mmol/L Normal 21.0-32.0 [facility] Comment on above: Performed By: #### B MP #### [facility] [address] [place] [address] Dr. Ibis Jimenez Creatinine [Mass/Vol] 0.75 mg/dL Normal 0.55-1.02 [facility] Comment on above: Performed By: #### B MP #### [facility] [address] [address] [address] Ibis Jimenez EGFR-AF SAMOAN >60 Normal >=60 [facility] Comment on above: Performed By: #### B MP #### [facility] [address] [address] [address] Ibis Jimenez EGFR-NON AF SAMOAN >60 Normal >=60 [facility] Comment on above: Performed By: #### B MP #### [facility] [address] [address] [address] Ibis Jimenez Glucose [Mass/Vol] 107 mg/dL Critically high 74-106 [facility] Comment on above: Performed By: #### B MP #### [facility] [address] [address] [address] Ibis Jimenez Potassium [Moles/Vol] 3.6 mmol/L Normal 3.5-5.1 [facility] Comment on above: Performed By: #### B MP #### [facility] [address] [address] [address] Ibis Jimenez Sodium [Moles/Vol] 140 mmol/L Normal 136-145 [facility] Comment on above: Performed By: #### B MP #### [facility] [address] [address] [address] Ibis Jimenez Urea nitrogen [Mass/Vol] 13.0 mg/dL Normal 7.0-18.0 [facility] Comment on above: Performed By: #### B MP #### [facility] [address] [address] [address] Ibis Jimenez Urea nitrogen/Creatinine [Mass ratio] 17.3 mg/mg Normal [facility] Comment on above: Performed By: #### B MP #### [facility] [address] [address] [address] Ibis Jimenez URINE MICROSCOPIC ONLYon BACTERIA TRACE Abnormal NONE SEEN [facility] Comment on above: Performed By: #### B MP #### [facility] [address] [place] [address] Dr. Ibis Jimenez Bacteria identified Cx Nom (U) NOT INDICATED Normal [facility] Comment on above: Performed By: #### B MP #### [facility] [address] [address] [address] Ibis Jimenez CAST NONE SEEN Normal NONE SEEN [facility] Comment on above: Performed By: #### B MP #### [facility] [address] [address] [address] Ibis Jimenez Crystals LM Nom (Urine sed) NONE SEEN Normal NONE SEEN [facility] Comment on above: Performed By: #### B MP #### [facility] [address] [place] [address] Dr. Ibis Jimenez Epithelial cells LM Ql (Urine sed) MANY Abnormal NONE SEEN /RARE [facility] Comment on above: Performed By: #### B MP #### [facility] [address] [place] [address] Dr. Ibis Jimenez MUCOUS SMALL Abnormal NONE SEEN The [facility] Comment on above: Performed By: #### B MP #### [facility] [address] [place] [address] Dr. Ibis Jimenez RBC 2-5 Abnormal 0-[address] [facility] Comment on above: Performed By: #### B MP #### [facility] [address] [place] [address] Dr. Ibis Jimenez WBC 2-5 Abnormal NONE SEEN The [facility] Comment on above: Performed By: #### B MP #### [facility] [address] [place] [address] Dr. Ibis Jimenez CBC Auto DifferentialOrdered By: Vielka Ching on 12-24-2020 [employer] # 0.44 [facility] Work Phone: [employer] Immature Granulocyte 0.05 [facility] Work Phone: [employer] Lymph # 2.48 [facility] Work Phone: [employer] Stoddard # 0.55 [facility] Work Phone: Basophils (Bld) [#/Vol] 10*3/uL M [employer] Phone: Basophils/100 WBC (Bld) 0 % 0 - 2 % [employer] Phone: Differential Type NOT REPORTED [employer] Phone: Eosinophils/100 WBC (Bld) 5 % High 1 - 4 % [employer] Phone: Hematocrit (Bld) [Volume fraction] 37.4 % 36.3 - 47.1 % [employer] Phone: Hemoglobin.gastrointest inal spec 1 Ql (Stl) 12.3 g/dL 11.9 - 15.1 g/dL [employer] Phone: Immature granulocytes/100 WBC (Bld) 1 % High 0 [employer] Phone: Interpretation and review of laboratory results Abnormal [employer] Phone: Lymphocytes/100 WBC (Bld) 30 % 24 - 43 % [employer] Phone: MCH (RBC) [Entitic mass] 28.5 pg 25.2 - 33.5 pg [employer] Phone: MCHC (RBC) [Mass/Vol] 32.9 g/dL 28.4 - 34.8 g/dL [employer] Phone: MCV (RBC) [Entitic vol] 86.8 fL 82.6 - 102.9 fL [employer] Phone: Monocytes/100 WBC (Bld) 7 % 3 - 12 % [employer] Phone: NRBC Automated 0.0 0.0 per 100 WBC [employer] Phone: Platelet distribution width (Bld) [Ratio] 12.7 % 11.8 - 14.4 % [employer] Phone: Platelet Estimate NOT REPORTED [employer] Phone: Platelet mean volume (Bld) [Entitic vol] 9.4 fL 8.1 - 13.5 fL [employer] Phone: Platelets (Bld) [#/Vol] 252 10*3/uL [employer] Phone: RBC (Bld) [#/Vol] 4.31 10*6/uL 3.95 - 5.1 1 m/uL [employer] Phone: RBC (Bld) [#/Vol] NOT REPORTED [employer] Phone: Segmented neutrophils/100 WBC (Bld) 57 % 36 - 65 % [employer] Phone: Segs [facility] 4.78 [facility] Work Phone: WBC (Bld) [#/Vol] 8.3 10*3/uL [employer] Phone: WBC (Bld) [#/Vol] NOT REPORTED [employer] Phone: [employer] Phone: CBC with Diffon 12-24-2020 Abs. Basophil <0.03 Normal 0.00-0.20 [facility] Comment on above: Performed By: #### C MPX, CDP #### [facility] [address] [place] [address] [place] [address] [employer] Chair: Souleymane Pineda MD Abs.Imm.Granulocyte 0.05 k/uL Normal 0.00-0.30 [facility] Comment on above: Performed By: #### C MPX, CDP #### [facility] [address] [place] [address] [employer] Division Chair: Souleymane Pineda MD Abs.Neutrophil (Seg) 4.78 k/uL Normal 1.50-8.10 [facility] Comment on above: Performed By: #### C MPX, CDP #### [facility] [address] [place], [place] [phone] [employer] Division Chair: Souleymane Pineda MD Basophils/100 WBC (Bld) 0 % Normal 0-2 M [facility] Comment on above: Performed By: #### C MPX, CDP #### [address] [place] [address] [employer] Chair: Souleymane Pineda MD Eosinophils (Bld) [#/Vol] 0.44 10*3/uL Normal 0.00-0.44 [facility] Comment on above: Performed By: #### C MPX, CDP #### [address] [place], [place] [id number] [employer] Chair: Souleymane Pineda MD Eosinophils/100 WBC (Bld) 5 % High 1-4 [facility] Comment on above: Performed By: #### C MPX, CDP #### [address] [place], [place] [phone] [employer] Chair: Souleymane Pineda MD Erythrocyte distribution width (RBC) [Ratio] 12.7 % Normal 11.8-14.4 [facility] Comment on above: Performed By: #### C MPX, CDP #### [address] [place] [address] [employer] Chair: Souleymane Pineda MD Hematocrit (Bld) [Volume fraction] 37.4 % Normal 36.3-47.1 [facility] Comment on above: Performed By: #### C MPX, CDP #### [address] [place] [address] [employer] Chair: Souleymane Pineda MD Hemoglobin (Bld) [Mass/Vol] 12.3 g/dL Normal 11.9-15.1 [facility] Comment on above: Performed By: #### C MPX, CDP #### [address] [place], [place] [phone] [employer] Chair: Souleymane Pineda MD Immature granulocytes/100 WBC (Bld) 1 % High 0 [facility] Comment on above: Performed By: #### C MPX, CDP #### [facility] [address] [place], [place] [phone] [employer] Division Chair: Souleymane Pineda MD Lymphocytes (Bld) [#/Vol] 2.48 10*3/uL Normal 1.10-3.70 [facility] Comment on above: Performed By: #### C MPX, CDP #### [facility] [address] [place], [place] [phone] [employer] Division Chair: Souleymane Pineda MD Lymphocytes/100 WBC (Bld) 30 % Normal 24-43 [facility] Comment on above: Performed By: #### C MPX, CDP #### [address] [place], [place] [phone] [employer] Chair: Souleymane Pineda MD MCH (RBC) [Entitic mass] 28.5 pg Normal 25.2-33.5 [facility] Comment on above: Performed By: #### C MPX, CDP #### [address] [place], [place] [phone] [employer] Chair: Souleymane Pineda MD MCHC (RBC) [Mass/Vol] 32.9 g/dL Normal 28.4-34.8 [facility] Comment on above: Performed By: #### C MPX, CDP #### [facility] [address] [place] [address] Dr[address] [place], [place] [phone] [employer] Division Chair: Souleymane Pineda MD MCV (RBC) [Entitic vol] 86.8 fL Normal 82.6-102.9 M [facility] Comment on above: Performed By: #### C MPX, CDP #### [facility] [address] [place] [address] [employer] Division Chair: Souleymane Pineda MD Monocytes (Bld) [#/Vol] 0.55 10*3/uL Normal 0.10-1.20 [facility] Comment on above: Performed By: #### C MPX, CDP #### [facility] [address] [place], [place] [phone] [employer] Chair: Souleymane Pineda MD Monocytes/100 WBC (Bld) 7 % Normal 3-12 M [facility] Comment on above: Performed By: #### C MPX, CDP #### [facility] [address] [place], [place] [phone] [employer] Division Chair: Souleymane Pineda MD Neutrophil (Seg) 57 % Normal 36-65 [facility] Comment on above: Performed By: #### C MPX, CDP #### [facility] [address] [place], [place] [phone] [employer] Division Chair: Souleymane Pineda MD NRBC Automated 0.0 per 100 WBC Normal 0.0 [facility] Comment on above: Performed By: #### C MPX, CDP #### [facility] [address] [place], [place] [phone] [employer] Chair: Souleymane Pineda MD Platelet mean volume (Bld) [Entitic vol] 9.4 fL Normal 8.1-13.5 [facility] Comment on above: Performed By: #### C MPX, CDP #### [facility] [address] [place] [address] [employer] Chair: Souleymane Pineda MD Platelets (Bld) [#/Vol] 252 10*3/uL Normal 138-453 [facility] Comment on above: Performed By: #### C MPX, CDP #### [facility] [address] [place] [address] [employer] Division Chair: Souleymane Pineda MD RBC (Bld) [#/Vol] 4.31 10*6/uL Normal 3.95-5.11 [facility] Comment on above: Performed By: #### C MPX, CDP #### [facility] [address] [place], [place] [phone] [employer] Division Chair: Souleymane Pineda MD WBC (Bld) [#/Vol] 8.3 10*3/uL Normal 3.5-11.3 [facility] Comment on above: Performed By: #### C MPX, CDP #### [facility] [address] [place] [address] [employer] Chair: Souleymane Pineda MD Auto Diff Performed NOT REPORTED Normal [facility] Comment on above: Performed By: #### C MPX, CDP #### [facility] [address] [place], [place] [phone] [employer] Division Chair: Souleymane Pineda MD Platelet Comment NOT REPORTED Normal [facility] Comment on above: Performed By: #### C MPX, CDP #### [facility] [address] [place] [address] [employer] Division Chair: Souleymane Pineda MD RBC morphology finding Nom (Bld) NOT REPORTED Normal [facility] Comment on above: Performed By: #### C MPX, CDP #### [facility] [address] [place] [address] [employer] Division Chair: Souleymane Pineda MD WBC Morphology NOT REPORTED Normal [facility] Comment on above: Performed By: #### C MPX, CDP #### [facility] [address] [place], [place] [phone] [employer] Division Chair: Souleymane Pineda MD CT HEAD WO CONTRASTon [...] the orbits demonstrate no acute abnormality. SINUSES: Bbxp-ba-lbghhava paranasal sinus mucosal thickening. SOFT TISSUES/SKULL: No acute abnormality of the visualized skull or soft tissues. IMPRESSION: No acute intracranial abnormality. Interpreted by: Edwin Bentley MD Signed by: Edwin Bentley MD 12/24/20 Final result Normal [facility] CT Head WO ContrastOrdered B y: Vielka Ching on 12-24-2020 No acute intracranial abnormality. [employer] Phone: EXAMINATION: CT OF THE HEAD WITHOUT [...] the orbits demonstrate no acute abnormality. SINUSES: Pwas-dv-wkhfsmzl paranasal sinus mucosal thickening. SOFT TISSUES/SKULL: No acute abnormality of the visualized skull or soft tissues. [employer] Phone: Dimitri, [facility] Incoming Radiant Results From [employer] - 12/24/2020 8:49 PM EDT EXAMINATION: CT [...] the orbits demonstrate no acute abnormality. SINUSES: Oqud-yo-gdthjhow paranasal sinus mucosal thickening. SOFT TISSUES/SKULL: No acute abnormality of the visualized skull or soft tissues. IMPRESSION: No acute intracranial abnormality. [facility] Work Phone: [facility] Work Phone: Comp Metabolic Pr/rfx MGon 1 02-24-2020 Bilirubin [Mass/Vol] mg/dL Low 0.3-1.2 [facility] Comment on above: Performed By: #### C JULIA, CDP #### [facility] [address] [place] [address] [employer] Division Chair: Souleymane Pineda MD (cont.) Normal [facility] Comment on above: Result Comment: Aver age GFR for 20-29 years old: 116 mL/min/1.73sq m Chronic Kidney Disease: <60 mL/min/1.73sq m Kidney failure: <15 mL/min/1.73sq m eGFR calculated using average adult body mass. Additional eGFR calculator available at: http://www.[employer].com/multiple_crcl_2012.htm Performed By: #### C JULIA, CDP #### [facility] [address] [place] [address] [employer] Division Chair: Souleymane Pineda MD Albumin [Mass/Vol] 4.0 g/dL Normal 3.5-5.2 [facility] Comment on above: Performed By: #### C MPX, CDP #### [facility] [address] [place], [place] [phone] [employer] Division Chair: Souleymane Pineda MD Albumin/Glob Ratio 1.5 Normal 1.0-2.5 [facility] Comment on above: Performed By: #### C MPX, CDP #### [facility] [address] [place], [place] [phone] English Division Chair: Souleymane Pineda MD Alkaline Phos 90 U/L Normal 35-104 [facility] Comment on above: Performed By: #### C MPX, CDP #### [facility] [address] [place], [place] [phone] [employer] Division Chair: Souleymane Pineda MD ALT [Catalytic activity/Vol] 40 U/L High 5-33 [facility] Comment on above: Performed By: #### C MPX, CDP #### [facility] [address] [place], [place] [phone] [employer] Division Chair: Souleymane Pineda MD Anion gap [Moles/Vol] 11 mmol/L Normal 9-17 [facility] Comment on above: Performed By: #### C MPX, CDP #### [facility] [address] [place], [place] [phone] [employer] Division Chair: Souleymane Pineda MD AST [Catalytic activity/Vol] 19 U/L Normal <32 [facility] Comment on above: Performed By: #### C MPX, CDP #### [facility] [address] [place], [place] [phone] [employer] Division Chair: Souleymane Pineda MD BUN/CRE Ratio 15 Normal 9-20 [facility] Comment on above: Performed By: #### C MPX, CDP #### [facility] [address] [place], [place] [phone] [employer] Division Chair: Souleymane Pineda MD Calcium [Mass/Vol] 8.9 mg/dL Normal 8.6-10.4 [facility] Comment on above: Performed By: #### C MPX, CDP #### [facility] [address] [place] [address] [employer] Division Chair: Souleymane Pineda MD Chloride [Moles/Vol] 104 mmol/L Normal 98-107 [facility] Comment on above: Performed By: #### C MPX, CDP #### [facility] [address] [place], [place] [phone] [employer] Division Chair: Souleymane Pineda MD CO2 [Moles/Vol] 24 mmol/L Normal 20-31 [facility] Comment on above: Performed By: #### C MPX, CDP #### [facility] [address] [place], [place] [phone] [employer] Division Chair: Souleymane Pineda MD Creatinine [Mass/Vol] 0.60 mg/dL Normal 0.50-0.90 [facility] Comment on above: Performed By: #### C MPX, CDP #### [facility] [address] [place], [place] [phone] [employer] Division Chair: Souleymane Pineda MD GFR, Amer >60 Normal >60 [facility] Comment on above: Performed By: #### C MPX, CDP #### [facility] [address] [place], [place] [phone] [employer] Division Chair: Souleymane Pineda MD GFR,non Amer >60 Normal >60 [facility] Comment on above: Performed By: #### C MPX, CDP #### [facility] [address] [place], [place] [phone] [employer] Division Chair: Souleymane Pineda MD Glucose [Mass/Vol] 91 mg/dL Normal 70-99 [facility] Comment on above: Performed By: #### C MPX, CDP #### [facility] [address] [place], [place] [phone] [employer] Division Chair: Souleymane Pineda MD Potassium [Moles/Vol] 4.0 mmol/L Normal 3.7-5.3 [facility] Comment on above: Performed By: #### C MPX, CDP #### [facility] [address] [place] [address] [employer] Division Chair: Souleymane Pineda MD Protein [Mass/Vol] 6.7 g/dL Normal 6.4-8.3 [facility] Comment on above: Performed By: #### C MPX, CDP #### [address] [place] [address] [employer] Division Chair: Souleymane Pineda MD Sodium [Moles/Vol] 139 mmol/L Normal 135-144 [facility] Comment on above: Performed By: #### C MPX, CDP #### [address] [place] [address] [employer] Division Chair: Souleymane Pineda MD Staging: Normal [facility] Comment on above: Result Comment: Stag e 1: Some kidney damage normal GFR Stage 2: Mild kidney damage GFR 60-89 Stage 3: Moderate kidney damage GFR 30-59 Stage 4: Severe kidney damage GFR 15-29 Stage 5: Severe kidney damage GFR <15 ESRD - chronic treatment by dialysis or transplant Performed By: #### C MPX, CDP #### [address] [place] [address] [employer] Division Chair: Souleymane Pineda MD Urea nitrogen [Mass/Vol] 9 mg/dL Normal 6-20 [facility] Comment on above: Performed By: #### C MPX, CDP #### [address] [place] [address] [employer] Division Chair: Souleymane Pineda MD Comprehensive Metabolic Pane l w/ Reflex to MGOrdered By: Vielka Ching on 12-24-2020 Albumin [Mass/Vol] 4 g/dL 3.5 - 5.2 g/dL [employer] Phone: Albumin/Globulin [Mass ratio] 1.5 {ratio} [employer] Phone: ALP (Bld) [Catalytic activity/Vol] 90 U/L 35 - 104 U/L [employer] Phone: ALT [Catalytic activity/Vol] 40 U/L High 5 - 33 U/L [employer] Phone: Anion gap [Moles/Vol] 11 mmol/L 9 - 17 mmol/L [employer] Phone: AST [Catalytic activity/Vol] 19 U/L <32 [employer] Phone: Bilirubin [Mass/Vol] mg/dL Low 0.3 - 1 .2 mg/dL [employer] Phone: Calcium [Mass/Vol] 8.9 mg/dL 8.6 - 10. 4 mg/dL [employer] Phone: Chloride [Moles/Vol] 104 mmol/L 98 - 10 7 mmol/L [employer] Phone: CO2 [Moles/Vol] 24 mmol/L 20 - 31 mmol/L [employer] Phone: Creatinine [Mass/Vol] 0.6 mg/dL 0.50 - 0.90 mg/dL [employer] Phone: Free PSA/Total PSA [Mass fraction] 6.7 g/dL 6.4 - 8.3 g/dL [employer] Phone: GFR >60 >60 mL/min [employer] Phone: GFR Non- >60 >60 mL/min [employer] Phone: Glucose [Mass/Vol] 91 mg/dL 70 - 99 mg/dL [employer] Phone: Interpretation and review of laboratory results Abnormal [employer] Phone: Potassium [Moles/Vol] 4.0 mmol/L 3.7 - 5.3 mmol/L [employer] Phone: Sodium [Moles/Vol] 139 mmol/L 135 - 144 mmol/L [employer] Phone: Urea nitrogen (BldV) [Mass/Vol] 9 mg/dL 6 - 20 mg/dL [employer] Phone: Urea nitrogen/Creatinine (Bld) [Mass ratio] 15 [employer] Phone: [employer] Phone: Laboratory - Chemistry and C hemistry - challengeOrdered By: Vielka Ching on 12-24-2020 GFR/1.73 sq M.predicted MDRD (S/P/Bld) [Vol rate/Area] [employer] Phone: Comment on above: Average GFR for 20-2 9 years old: 116 mL/min/1.73sq m Chronic Kidney Disease: <60 mL/min/1.73sq m Kidney failure: <15 mL/min/1.73sq m eGFR calculated using average adult body mass. Additional eGFR calculator available at: http://www.[employer]/multiple_crcl_2011.htm Stage 1: Some kidney damage normal GFR Stage 2: Mild kidney damage GFR 60-89 Stage 3: Moderate kidney damage GFR 30-59 Stage 4: Severe kidney damage GFR 15-29 Stage 5: Severe kidney damage GFR <15 ESRD - chronic treatment by dialysis or transplant Vital Signs Date Time Vital Sign Value Performing Clinician Narendrai mahendra 10-13-2023 13:51-0400 Diastolic blood pressure 74 mm[Hg] Infusion 8 Work Phone: [facility] [employer] [facility] 10-13-2023 13:51-0400 Heart rate 77 /min Infusion 8 Work Phone: [facility] 10-13-2023 13:51-0400 Systolic blood pressure 134 mm[Hg] Infusion 8 Work Phone: [facility] 09-19-2023 14:22-0400 Body height 158.4 cm Koli Green STEEL LAYOUT WORKER.PSYCHIATRIC MENTAL HEALTH NURSE Work Phone: [facility] 09-19-2023 14:22-0400 Body mass index (BMI) [Ratio] 47.33 kg/m2 Koli Green STEEL LAYOUT WORKER.PSYCHIATRIC MENTAL HEALTH NURSE Work Phone: [facility] 09-19-2023 14:22-0400 Body temperature 99.1 [degF] Koli Green STEEL LAYOUT WORKER.PSYCHIATRIC MENTAL HEALTH NURSE Work Phone: [facility] 09-19-2023 14:22-0400 Body weight 118.75 kg Koli Green STEEL LAYOUT WORKER.PSYCHIATRIC MENTAL HEALTH NURSE Work Phone: [facility] 09-19-2023 14:22-0400 Diastolic blood pressure 81 mm[Hg] Koli Green STEEL LAYOUT WORKER.PSYCHIATRIC MENTAL HEALTH NURSE Work Phone: [facility] 09-19-2023 14:22-0400 Heart rate 80 /min Koli Green STEEL LAYOUT WORKER.PSYCHIATRIC MENTAL HEALTH NURSE Work Phone: [facility] 09-19-2023 14:22-0400 Systolic blood pressure 115 mm[Hg] Cameroni Green STEEL LAYOUT WORKER.PSYCHIATRIC MENTAL HEALTH NURSE Work Phone: [facility] 08-18-2023 09:26-0400 Diastolic blood pressure 51 mm[Hg] Curtis Lepe PA-C Work Phone: [facility] 08-18-2023 09:26-0400 Heart rate 88 /min Curtis Lepe PA-C Work Phone: [facility] 08-18-2023 09:26-0400 SaO2% (BldA) [Mass fraction] 97 % Curtis Lepe PA-C Work Phone: [facility] 08-18-2023 09:26-0400 Systolic blood pressure 116 mm[Hg] Curtis Lepe PA-C Work Phone: [facility] 04-14-2023 11:08-0500 Diastolic blood pressure 62 mm[Hg] Infusion 7 Work Phone: [facility] 04-14-2023 11:08-0500 Heart rate 84 /min Infusion 7 Work Phone: [facility] 04-14-2023 11:08-0500 Systolic blood pressure 109 mm[Hg] Infusion 7 Work Phone: [facility] 04-13-2023 10:50-0500 Diastolic blood pressure 63 mm[Hg] Infusion 7 Work Phone: [facility] 04-13-2023 10:50-0500 Heart rate 86 /min Infusion 7 Work Phone: [facility] 04-13-2023 10:50-0500 Systolic blood pressure 127 mm[Hg] Infusion 7 Work Phone: [facility] 04-12-2023 13:45-0500 Diastolic blood pressure 58 mm[Hg] Infusion 7 Work Phone: [facility] 04-12-2023 13:45-0500 Heart rate 79 /min Infusion 7 Work Phone: [facility] 04-12-2023 13:45-0500 Systolic blood pressure 120 mm[Hg] Infusion 7 Work Phone: [facility] 11-11-2022 10:55-0400 Diastolic blood pressure 63 mm[Hg] Infusion 8 Work Phone: [facility] 11-11-2022 10:55-0400 Heart rate 83 /min Infusion 8 Work Phone: [facility] 11-11-2022 10:55-0400 Systolic blood pressure 110 mm[Hg] Infusion 8 Work Phone: [facility] 07-28-2022 10:15-0400 Diastolic blood pressure 50 mm[Hg] Infusion 8 Work Phone: [facility] 07-28-2022 10:15-0400 Heart rate 80 /min Infusion 8 Work Phone: [facility] 07-28-2022 10:15-0400 Systolic blood pressure 105 mm[Hg] Infusion 8 Work Phone: [facility] 12-03-2021 09:47-0400 Diastolic blood pressure 81 mm[Hg] Jesse Samples Work Phone: [facility] 12-03-2021 09:47-0400 Heart rate 66 /min Jesse Samples Work Phone: [facility] 12-03-2021 09:47-0400 SaO2% (BldA) [Mass fraction] 100 % Jesse Samples Work Phone: [facility] 12-03-2021 09:47-0400 Systolic blood pressure 131 mm[Hg] Jesse Samples Work Phone: [facility] 10-20-2021 12:00-0400 Diastolic blood pressure 101 mm[Hg] Lucila Mota MD Work Phone: [facility] [employer] 10-20-2021 12:00-0400 Heart rate 85 /min Lucila Mota MD Work Phone: [employer] 10-20-2021 12:00-0400 Respiratory rate 12 /min Lucila Mota MD Work Phone: [facility] [employer] 10-20-2021 12:00-0400 SaO2% (BldA) [Mass fraction] 98 % Lucila Mota MD Work Phone: [facility] [employer] 10-20-2021 12:00-0400 Systolic blood pressure 136 mm[Hg] Lucila Mota MD Work Phone: [employer] 10-20-2021 08:00-0400 Body temperature 98.2 [degF] Lucila Mota MD Work Phone: [facility] [employer] 12-24-2020 19:36-0400 Body temperature 99 [degF] Vielka Ching DO Work Phone: [employer] Work Phone: 12-24-2020 19:36-0400 Diastolic blood pressure 80 mm[Hg] Vielka Ching DO Work Phone: [employer] Work Phone: 12-24-2020 19:36-0400 Heart rate 108 /min Vielka Ching DO Work Phone: [employer] Work Phone: 12-24-2020 19:36-0400 Respiratory rate 20 /min Vielka Ching DO Work Phone: [employer] Work Phone: 12-24-2020 19:36-0400 SaO2% (BldA) [Mass fraction] 96 % Vielka Ching DO Work Phone: [employer] Work Phone: 12-24-2020 19:36-0400 Systolic blood pressure 136 mm[Hg] Vielka Ching DO Work Phone: [employer] Work Phone: Encounters Encounter Date Encounter Type Care Provider Facility Start: 12-05-2023 End: 12-05-2023 ambulatory ОЛЬГА AGUILAR Facility:[facility] Comment on above: 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 without status migrainosus (Primary Dx) Start: 12-05-2023 End: 12-05-2023 Telemedicine consultation with patient Ольга Aguilar STEEL LAYOUT WORKER.PSYCHIATRIC MENTAL HEALTH NURSE Work Phone: Neurology Start: 12-01-2023 ambulatory Ramsey Nunn acility:[facility] Start: 11-15-2023 End: 11-15-2023 ambulatory SPENSER NADERER Not Available Start: 11-10-2023 End: 11-10-2023 Refill Curtis Lepe PA-C Work Phone: Neurology Comment on above: Refill Request Start: 10-13-2023 End: 10-13-2023 ambulatory Infusion Main Chair 8 Work Phone: Neurology Comment on above: 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 without status migrainosus (Primary Dx) Start: 10-10-2023 End: 10-10-2023 ambulatory SPENSER NADERER Not Available Start: 09-25-2023 End: 09-25-2023 ambulatory ZAY GREERO Not Available Start: 09-19-2023 End: 09-19-2023 ambulatory LOGAN BARTH Facility:[facility] Start: 09-19-2023 End: 09-19-2023 Patient encounter procedure Logan Barth APRN.CNP Work Phone: Neurology [facility] Comment on above: 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 without status migrainosus (Primary Dx) Start: 08-21-2023 End: 08-21-2023 ambulatory LEW KAVITA Not Available Start: 08-18-2023 End: 08-18-2023 ambulatory CURTIS LEPE Facility:[facility] Start: 08-18-2023 End: 08-18-2023 Patient encounter procedure Curtis TELLESC Work Phone: Neurology Comment on above: 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 without status migrainosus (Primary Dx); Psychogenic nonepileptic seizure Start: 08-16-2023 ambulatory Logan Barth APR N.PSYCHIATRIC MENTAL HEALTH NURSE Work Phone: Neurology [facility] Start: 08-16-2023 Subsequent hospital visit by physician Logan Barth APRN.CNP Work Phone: Neurology [facility] Comment on above: Hospital visit Start: 08-08-2023 ambulatory Logan Barth APR N.PSYCHIATRIC MENTAL HEALTH NURSE Work Phone: Neurology [facility] Comment on above: Injection Start: 07-10-2023 End: 07-10-2023 ambulatory Logan Barth STEEL LAYOUT WORKER.PSYCHIATRIC MENTAL HEALTH NURSE Work Phone: Neurology [facility] Comment on above: 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 without status migrainosus (Primary Dx) Start: 07-10-2023 End: 07-10-2023 Telemedicine consultation with patient Logan Barth APRN.PSYCHIATRIC MENTAL HEALTH NURSE Work Phone: Neurology [facility] Start: 06-26-2023 ambulatory Ольга zazueta STEEL LAYOUT WORKER.PSYCHIATRIC MENTAL HEALTH NURSE Work Phone: Neurology Comment on above: Concern [...] End: 04-14-2023 Patient encounter procedure Suzan Driver STEEL LAYOUT WORKER.PSYCHIATRIC MENTAL HEALTH NURSE Work Phone: Neurology Comment on above: 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 with status migrainosus (Primary Dx); 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 without status migrainosus Start: 04-13-2023 Telephone encounter Logan Barth APRN.FADY Work Phone: Neurology Comment on above: Appointment [...] Start: 04-12-2023 End: 04-12-2023 ambulatory SUZAN DRIVER Facility:[facility] Start: 04-12-2023 End: 04-12-2023 Patient encounter procedure Suzan Driver STEEL LAYOUT WORKER.PSYCHIATRIC MENTAL HEALTH NURSE Work Phone: Neurology Comment on above: Intractable [...] Telephone encounter Angely rousseau RN Work Phone: [facility] Comment on above: Insurance Authorizat ion (Aimovig 70MG/ML auto-injectors/) Start: 03-23-2023 End: 03-23-2023 ambulatory LOGAN BARTH Facility:[facility] Start: 03-22-2023 End: 03-22-2023 ambulatory SUZAN DRIVER Facility:[facility] Start: 03-21-2023 End: 03-21-2023 ambulatory SPENSER SHAY Not Available Start: 03-20-2023 End: 03-20-2023 ambulatory ZAY LEONARDO Not Available Start: 03-07-2023 End: 03-07-2023 ambulatory ZAY LEONARDO Not Available Start: 02-07-2023 End: 02-07-2023 ambulatory ZAY LEONARDO Not Available Start: 01-26-2023 End: 01-26-2023 ambulatory ZAY LEONARDO Not Available Start: 12-13-2022 Refill Cameronnisha Tab APR N.PSYCHIATRIC MENTAL HEALTH NURSE Work Phone: Neurology [facility] Comment on above: Refill Request Infusion (HEADACHE I NFUSIONS) Start: 12-12-2022 End: 12-12-2022 ambulatory LOGAN BARTH Facility:[facility] Start: 12-09-2022 Refill Ольга zazueta STEEL LAYOUT WORKER.PSYCHIATRIC MENTAL HEALTH NURSE Work Phone: Neurology Comment on above: Refill Request Start: 11-11-2022 End: 11-11-2022 ambulatory Infusion Main Chair 8 Work Phone: Neurology Comment on above: 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 with status migrainosus (Primary Dx) Start: 11-10-2022 End: 11-10-2022 ambulatory Ольга Aguilar STEEL LAYOUT WORKER.PSYCHIATRIC MENTAL HEALTH NURSE Work Phone: Neurology Comment on above: 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 with status migrainosus (Primary Dx) Nerve block Start: 11-10-2022 Telephone encounter Suzan dinero STEEL LAYOUT WORKER.PSYCHIATRIC MENTAL HEALTH NURSE Work Phone: Neurology Comment on above: Infusion Start: 11-10-2022 End: 11-10-2022 Telemedicine consultation with patient Ольга Aguilar STEEL LAYOUT WORKER.PSYCHIATRIC MENTAL HEALTH NURSE Work Phone: [facility] Start: 10-12-2022 ambulatory Suzan boyle STEEL LAYOUT WORKER.PSYCHIATRIC MENTAL HEALTH NURSE Work Phone: Neurology Comment on above: Botox Start: 10-12-2022 E-mail encounter alexus brown caregiver Suzan Driver STEEL LAYOUT WORKER.PSYCHIATRIC MENTAL HEALTH NURSE Work Phone: [facility] Start: 09-29-2022 Telephone encounter Angely rousseau RN Work Phone: [facility] Comment on above: Insurance Authorizat ion (Zomig 5MG nasal spray/) Start: 09-27-2022 ambulatory Cameronnisha Barth APR N.PSYCHIATRIC MENTAL HEALTH NURSE Work Phone: [facility] Comment on above: My apt Monday Start: 09-16-2022 ambulatory Cameronnisha Barth APR N.PSYCHIATRIC MENTAL HEALTH NURSE Work Phone: [facility] Start: 09-16-2022 Patient encounter procedure Logan Barth STEEL LAYOUT WORKER.PSYCHIATRIC MENTAL HEALTH NURSE Work Phone: [facility] Comment on above: Appointment Start: 08-31-2022 End: 08-31-2022 ambulatory Logan Barth STEEL LAYOUT WORKER.PSYCHIATRIC MENTAL HEALTH NURSE Work Phone: Neurology Comment on above: Chronic migraine w/o aura, not intractable, w/o stat migr (Primary Dx) Start: 08-31-2022 End: 08-31-2022 Telemedicine consultation with patient Logan aBrth APRN.PSYCHIATRIC MENTAL HEALTH NURSE Work Phone: [facility] Start: 08-09-2022 ambulatory Logan Tab APR N.PSYCHIATRIC MENTAL HEALTH NURSE Work Phone: [facility] Comment on above: Pain Start: 08-08-2022 End: 08-08-2022 ambulatory Jesse Borrego MD Work Phone: Neurology Comment on above: 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 with status migrainosus (Primary Dx) Start: 08-08-2022 End: 08-08-2022 Telemedicine consultation with patient Jesse Borrego MD Work Phone: [facility] Start: 08-07-2022 ambulatory Jesse [...] other preprocedural examination DR ZAY BLAS . [facility] Start: 07-12-2022 End: 07-13-[address] ZAY BLAS . Facility:[facility] Start: 07-12-2022 End: 07-13-2022 Encounter for other preprocedural examination DR ZAY BLAS . Facility:[facility] Start: 07-05-2022 ambulatory KRISTOFER Nunn acility:[facility] Start: 06-27-2022 Telephone encounter Logan Barth APRN.PSYCHIATRIC MENTAL HEALTH NURSE Work Phone: Neurology Comment on above: Appointment (infusio n) Start: 06-20-2022 End: 06-20-2022 ambulatory MANJINDER DEAL Facility:[facility] Start: 06-19-2022 End: 06-19-2022 ambulatory CHAYITO NARVAEZ . Facility:[facility] Start: 06-13-2022 Admission to [facility] Jesse Borrego MD Work Phone: Neurology Comment [...] Facility:[facility] Start: 01-14-2022 End: 01-14-2022 ambulatory SUKHDEEP MAURERMINOO Facility:[facility] Start: 01-07-2022 End: 01-07-2022 ambulatory MANJINDER [...] with patient Nelly Saldaña PA-C Work Phone: [facility] Start: 11-09-2021 ambulatory Tyrone Dolan MD, PhD Work Phone: [facility] Start: 11-09-2021 Patient encounter procedure Tyrone Dolan MD, PhD Work Phone: Neurology Comment on above: Request Veido appoin tment Start: 11-08-2021 ambulatory Tyrone Dolan MD, PhD Work Phone: [facility] Start: 11-08-2021 Patient encounter [...] patient Tyrone Dolan MD, PhD Work Phone: [facility] Start: 10-26-2021 Patient encounter procedure Román Storey MD Work Phone: Neurology Comment on above: Seizure-like activit y (HCC) (Primary Dx) Start: 10-19-2021 End: 10-20-2021 Evaluation and management [facility] Start: 10-19-2021 End: 10-20-2021 Evaluation and management of inpatient Lucila Mota MD Work Phone: [facility] Neuro ICU Start: 10-19-2021 End: 10-19-2021 ambulatory SHAIKH Joseph WALLS Facility:[facility] Start: 10-07-2021 End: 10-07-[address] ZAY BLAS . Facility:[facility] Start: 10-06-2021 End: 10-06-2021 ambulatory SUKHDEEP DOCKERY Facility:[facility] Start: 10-03-2021 End: 10-04-2021 ambulatory MANJINDER DEAL Facility:[facility] Start: 10-01-2021 End: 10-02-2021 Evaluation and management of inpatient DR ANGÉLICA ARTHUR Facility:[facility] Start: 10-01-2021 Encounter for preprocedural laboratory examination DR ZAY BLAS . [facility] Start: 09-29-2021 End: 09-30-[address] [...] End: 12-24-2020 Emergency department patient visit ANGÉLICA R KUNS [facility] Start: 12-24-2020 End: 12-24-2020 Emergency department patient visit Vielka Ching DO Work Phone: [facility] ED Comment on above: Migraine without sta tus migrainosus, not intractable, unspecified migraine type (Primary Dx) Start: 02-18-2020 End: 02-18-2020 Telephone encounter Imreece Storey Work Phone: Neurology Comment on above: Future Appointment ( [place], [place], Any) Procedures Date Procedure Procedure Detail Performing Clinician Start: 10-29-2021 Adult depression scr eening assessment Tyrone Dolan MD, PhD Work Phone: Start: 10-20-2021 EEG VIDEO MONITORING Marcy Perez STEEL LAYOUT WORKER [employer] Work Phone: Start: 10-20-2021 BASIC METABOLIC PANE L W/ REFLEX TO MG FOR LOW K Puri Rikki Mota MD Work Phone: Start: 10-20-2021 Blood count complete auto&auto difrntl wbc Lo Perez STEEL LAYOUT WORKER - PSYCHIATRIC MENTAL HEALTH NURSE Work Phone: Start: 10-20-2021 IMMATURE PLATELET FRACTION Lo Perez STEEL LAYOUT WORKER - PSYCHIATRIC MENTAL HEALTH NURSE Work Phone: Start: 10-19-2021 Assay of lactate Uday Perez STEEL LAYOUT WORKER - [employer] Work Phone: Start: 10-19-2021 Ecg routine ecg w/le ast 12 lds w/i&r Lo Perez STEEL LAYOUT WORKER - PSYCHIATRIC MENTAL HEALTH NURSE Work Phone: Start: 10-19-2021 Mri brain brain stem w/o w/contrast material Lo Perez STEEL LAYOUT WORKER - PSYCHIATRIC MENTAL HEALTH NURSE Work Phone: Start: 10-19-2021 RESPIRATORY CARE EVALUATION ONLY Lo Perez STEEL LAYOUT WORKER - [employer] Work Phone: Start: 10-01-2021 Resection of Bilater [...] vaccine (7 - Td or Tdap) [facility] Start: 09-20-2025 Urine microalbumin profile [facility] Start: 01-05-2024 End: 01-05-2024 ambulatory 01/05/2024 1:00 PM EST Infusion Center Neurology [address] [id number] [facility] Comment on above: [facility] Start: 10-31-2023 End: 10-31-2023 Patient encounter procedure 10/31/2023 2:30 PM EDT Office Visit Neurology [address] [id number] Tyrone Dolan MD, PhD [address] [facility] [address] [place] [address] Seizure Neurology Comment on above: Seizure Start: 10-22-2023 Covid-19 Vaccine ( season) Covid-19 Vaccine ( season) [facility] Start: 10-22-2023 Covid-19 Vaccine ( season) Covid-19 Vaccine ( season) [facility] Start: 10-22-2023 Influenza vaccination C [facility] Start: 10-13-2023 End: 10-13-2023 ambulatory 10/13/2023 1:00 PM EDT Infusion Center Neurology [address] [id number] [facility] Neu[facility] Comment on above: [facility] Start: 09-19-2023 End: 09-19-2023 Patient encounter procedure 09/19/2023 2:30 PM EDT Office Visit Neurology Headache [facility] [address] [place] [address] Logan Barth, UMANG.PSYCHIATRIC MENTAL HEALTH NURSE [address] [place] [address] Migraines Nerve Block Neurology Headache [facility] Comment on above: Migraines Nerve Bloc k Start: 08-18-2023 End: 08-18-2023 Patient encounter procedure 08/18/2023 9:30 AM EDT Office Visit Neurology [address] [place] [address] Curtis Lepe PA-C [address] [place] [address] NERVE BLOCK Neurology Comment on above: NERVE BLOCK Start: 02-20-2023 [facility] Start: 10-29-2022 Adult depression screening assessment DEPRESSION SCREENING [facility] Start: 10-21-2022 Covid-19 Vaccine ( season) Covid-19 Vaccine () [facility] Start: 10-21-2022 Influenza vaccination C [facility] Start: 02-20-2022 [facility] Start: 10-26-2021 End: 10-26-2022 SARS-CoV-2 (COVID-19) RNA [Presence] in Respiratory specimen by SAURABH with probe detection PRE-PROCEDURE & PRE-OPERATIVE COVID Microbiology Routine Seizure-like activity (HCC) Expected: 10/26/2021, Expires: 10/26/2022 [facility] Work Phone: Comment on above: Expected: 10/26/2021 , Expires: 10/26/2022 Start: 10-21-2021 Influenza vaccination B [facility] Start: 02-20-2021 [facility] Start: 10-21-2020 Influenza vaccination Flu vaccine (# 1) [facility] Work Phone: Start: 11-13-2016 PAP TESTING PAP TESTING [facility] Start: 11-13-2016 Screening for malign ant neoplasm of cervix [facility] Start: 11-13-2014 Urine microalbumin profile [facility] Start: 11-13-2013 Anxiety Screening Anxiety Screening [facility] Start: 11-13-2013 Depression Screening Depression Scre ening [facility] Start: 11-13-2013 Hepatitis C screening B ON [employer] Start: 11-13-2013 HEPATITIS C SCREENING HEPATITIS C SC KALE [facility] Start: 11-13-2013 HIV SCREENING HIV SCREENING [facility] Start: 11-13-2013 HIV screening HIV Screening [facility] Start: 2011 Screening for Chlamy roes trachomatis Chlamydia screen [facility] [employer] Start: 11-13-2010 HIV screening HIV screen [facility] [employer] Start: 11-13-2009 PEDS TO ADULT TRANSITION ANNUAL ASSESSMENT PEDS TO ADULT TRANSITION ANNUAL ASSESSMENT [facility] Start: 2007 Adult depression screening assessment DEPRESSION SCREENING [facility] Start: 2007 COVID-19 Vaccine (1) COVID-19 Vaccin e (1) [employer] Phone: Start: 2007 Depression Screen Depression Screen [facility] [employer] Start: 2007 PEDS TO ADULT TRANSITION INITIAL DISCUSSION PEDS TO ADULT TRANSITION INITIAL DISCUSSION [facility] Start: 11-13-2006 HPV VACCINE (1 - 2-d ose series) HPV VACCINE (1 - 2-dose series) [facility] Start: 11-13-2004 HPV VACCINE (1 - 2-d ose series) HPV VACCINE (1 - 2-dose series) [facility] Start: 05-13-1996 COVID-19 Vaccine (#1) COVID-19 Vacci ne (#1) [employer] Start: 1995 HEPATITIS B (1 of 3 - 3-dose series) HEPATITIS B (1 of 3 - 3-dose series) [facility] Start: 1995 Hepatitis B Vaccine (1 of 3 - 3-dose series) Hepatitis B Vaccine (1 of 3 - 3-dose series) [facility] Start: 1995 Hepatitis C screening [facility] [employer] Phone: End: 10-26-2021 Basic Metabolic Panel w/ Reflex to MG Basic Metabolic Panel w/ Reflex to MG Lab Routine Daily for 7 Days starting 10/20/2021 until 10/26/2021 [employer] Phone: Comment on above: Daily for 7 Days sta rting 10/20/2021 until 10/26/2021 End: 10-26-2021 CBC W Auto Differential panel - Blood CBC with Auto Differential Lab Routine Daily for 7 Days starting 10/20/2021 until 10/26/2021, 1 completed [employer] Phone: Comment on above: Daily for 7 Days sta rting 10/20/2021 until 10/26/2021, 1 completed EKG 12 Lead EKG 12 Lead ECG Routine 10/19/2021 5:55 PM EDT [employer] Phone: End: 10-29-2022 EPIL AMBULATORY EEG EPIL AMBULATORY EEG NEUROLOGY Routine Psychogenic nonepileptic seizure Spells of trembling 1 Occurrences starting 10/29/2021 until 10/29/2022 [employer] Work Phone: Comment on above: 1 Occurrences starti ng 10/29/2021 until 10/29/2022 End: 10-26-2022 EPIL EEG LEAD PLACEMENT EPIL EEG LEAD PLACEMENT NEUROLOGY Routine Seizure-like activity (HCC) 1 Occurrences starting 10/26/2021 until 10/26/2022 [employer] Work Phone: Comment on above: 1 Occurrences starti ng 10/26/2021 until 10/26/2022 End: 11-08-2022 EPIL EEG ROUTINE EPIL EEG ROUTINE NEUROLOGY Routine Seizure-like activity (HCC) 1 Occurrences starting 11/08/2021 until 11/08/2022 [employer] Work Phone: Comment on above: 1 Occurrences starti ng 11/08/2021 until 11/08/2022 EPIL VEEG ADMIT TO EMU/PMU EPIL VEEG ADMIT TO EMU/PMU NEUROLOGY Routine Seizure-like activity (HCC) Ordered: 10/26/2021 [employer] Work Phone: Comment on above: Ordered: 10/26/2021 Oxygen therapy [[facility] Data Set] Initiate Oxygen Therapy Protocol Respiratory Care Routine As Needed until discontinued starting 10/19/2021 [employer] Work Phone: Comment on above: As Needed until disc ontinued starting 10/19/2021 [facility] Immunizations Immunization Date Immunization Notes Care Provider Israel black 12-08-2017 influenza virus vacc ine, unspecified formulation Suzan Driver APRN.[facility] Work Phone: [facility] Payers Date Payer Category Payer Self-pay 2017 Medicaid [place] [employer] [place] [id number] 2017-Present Medicaid [id number] 2013 Medicaid [id number] 2011 Unknown 1995 Unknown [id number] 1995 Unknown [id number] 1995 Unknown [id number] 1995 Unknown [id number] 1995 Unknown [id number] 1995 Unknown [id number] 1995 Unknown [id number] 1995 Unknown [id number] 1995 Unknown [id number] 1995 Unknown [id number] 1995 Unknown [id number] 1995 Unknown [id number] 1995 Unknown [id number] [id number] 1995 Unknown [id number] 2.16.840.1.528038.3.579.2.593 1995 Unknown [id number] 2.16.840.1.546312.3.579.2.593 1995 Unknown [id number] 2.16.840.1.376939.3.579.2.593 1995 Unknown [id number] 2.16.840.1.904012.3.579.2.593 1995 Unknown [id number] 2.16.840.1.834809.3.579.2.593 1995 Unknown [id number] 2.16.840.1.225217.3.579.2.593 1995 Unknown [id number] 2.16.840.1.892249.3.579.2.593 1995 Unknown [id number] 2.16.840.1.707542.3.579.2.593 1995 Unknown [id number] 2.16.840.1.194634.3.579.2.593 1995 Unknown [id number] 2.16.840.1.729015.3.579.2.593 1995 Unknown [id number] 2.16.840.1.789505.3.579.2.593 1995 Unknown [id number] 2.16.840.1.894388.3.579.2.593 1995 Unknown [id number] 2.16.840.1.937901.3.579.2.9 1995 Unknown [id number] 2.16.840.1.175793.3.579.2.9 1995 Unknown [id number] 2.16.840.1.665511.3.579.2.9 1995 Unknown [id number] 2.16.840.1.648185.3.579.2.1258 1995 Unknown [id number] 2.16.840.1.716121.3.579.2.9 1995 Unknown [id number] 2.16.840.1.905415.3.579.2.9 1995 Unknown [id number] 2.16.840.1.659491.3.579.2.9 1995 Unknown [id number] 2.16.840.1.280618.3.579.2.9 1995 Unknown [id number] 2.16.840.1.608958.3.579.2.9 1995 Unknown [id number] 2.16.840.1.655094.3.579.2.1259 1959 Unknown [id number] [id number].3.6 [id number] Social History Date Type Detail Facility Tobacco smoking stat [facility] Unknown if ever smoked [facility] Start: 1995 Sex Assigned At Not on file [facility] Start: 12-24-2020 End: 10-12-2022 Tobacco smoking status HIIS Never smoker [employer] Phone: Start: 12-24-2020 End: 10-12-2022 Tobacco use and exposure Never used [facility] [employer] Start: 12-24-2020 Alcohol intake Ex-drinker (finding) [facility] [employer] Work Phone: Start: 10-16-2021 End: 07-28-2022 Exposure to SARS-CoV-2 (event) Not sure [facility] [employer] Tobacco smoking stat us [facility] Tobacco smoking consumption unknown [facility] Work Phone: Start: 06-23-2022 End: 08-08-2022 History of Social function [facility] Start: 06-23-2022 End: 08-08-2022 Patient Health Questionnaire 2 item (PHQ-2) [Reported] [facility] Adult Depression Screening Assessment 2 [facility] Clinical Notes 12-24-2020 to 12-05-2023 Ольга Aguilar APRN.[facility] - 12/05/2023 7:00 AM EDTTelephone Encounter - Logan Barth APRN.[facility] - 11/10/2023 2:12 PM EDTTelephone Encounter - Logan Barth APRN.[facility] - 11/10/2023 2:12 PM EDTAttachments Note Date & Type Note Facility 12-05-2023 History of Presen t illness Narrative Images from the original note were not included. [facility] - Follow up Virtual Visit Last OV: 08/23/23 Sona Barth APRN Accompanied by: Self This visit was conducted as a virtual visit, with patient's permission, via ZOOM. It required patient-provider interaction for the medical decision making as documented below. Patient stated name and Patient location [place], [place] I have communicated my name and active licensure. The patient's identity and physical location were verified at the time of this visit. Either the patient or their legal patient care representative has been informed of the risks and benefits of -- and alternatives to -- treatment through a remote evaluation and consents to proceed with the evaluation remotely. Primary Problem List: ACTIVE PROBLEM LIST Seizure-Like Activity (Hcc) Psychogenic Nonepileptic Seizure Intractable Chronic Migraine Without Aura and With Status Migrainosus Chronic Migraine Without Aura, With Intractable Migraine, So Stated, With Status Migrainosus Intractable Chronic Migraine Without Aura and Without Status Migrainosus Chief Complaint: Headache Interval Headache Hx: Had 1 treatment Vyepti, next dose 01/05/24 Decreased Plan from last visit: IMPRESSION: Coni Nicholson is a 27 year [...] - continue all other medications as rx'ed Headache 1 Location: frontal Quality/Description: pressure, throbbing and piercing/stabbing Associated Symptoms: Photophobia: yes Phonophobia: yes Nausea: yes Vomiting: yes Other symptoms: osmophobia and neck pain Worse with activity: yes Number of migraine headache days/month: 15 Migraine headache severity: 8/10 Number of headache free days/month: 10 Duration of headaches with treatment: 2 days (48 hours) Triggers: stress, weather changes and sleep- too little Onset of headache to peak: abrupt Positional changes: no Most common time of day for headache to begin: anytime Aura: blurred vision and sparklers Allodynia: yes - scalp Headache status since the last visit: better Lifestyle: Sleep: 5-8, woken by child Issues and questions to be addressed: Medications Current Outpatient Medications Medication Sig promethazine (PHENERGAN) 25 mg tablet Take 1 tablet by mouth every 4 hours as needed. FOR NAUSEA ZOLMitriptan (ZOMIG) 5 mg nasal spray Use 1 [place] in the nose as needed at onset of migraine headache. If symptoms persist or return, may repeat dose in other nostril after 2 hours. Maximum of 2 sprays per 24 hours keTORolac (TORADOL) 10 mg tablet Take 1 tablet by mouth every 6 hours as needed (severe migraine). chlorzoxazone (PARAFON FORTE DSC) 500 mg tablet Take 1 tablet by mouth two times a day as needed for muscle spasm (migraine). magnesium oxide 400 mg magnesium cap Take 1 capsule by mouth daily at bedtime. lumateperone (CAPLYTA) 10.5 mg capsule Take 10.5 mg by mouth once daily. Phentermine HCl 37.5 mg tablet lithium carbonate 300 mg tablet traZODone (DESYREL) 100 mg tablet lamoTRIgine (LAMICTAL) 150 mg tablet diazePAM (VALIUM) 10 mg tablet Current Facility-Administered Medications Medication Dose Route Frequency onabotulinum toxin type A 200 Units injection (BOTOX) 200 Units INTRAMUSCULAR q 3 MONTHS ALLERGIES Allergen Reactions Dihydroergotamine Intolerance Chest tightness, numbness and tingling in bilateral extremities, increased anxiety Adhesive Tape-Silic* Rash Azithromycin Other: See Comments Keflex [Cephalexin] Rash Keppra [Levetiracet* Itching Pyrilamine-Dextrome* Hives Reglan [Metoclopram* Intolerance Vortioxetine Hives HEADACHE SCORES: 07/10/2023 09/19/2023 12/05/2023 Headache Questions ER visits since last office visit: 8 6 1 Hospital stays since last office visit 2 1 1 Limited ADLs in the last month: 12 Days headache pain free in the last month: 10 Days per month with ALL of the following symptoms - decreased productivity, light sensitivity and nausea: 30 Initial improvement of headache after botox injection at last visit: No change Patient impression of improvement since last visit: Very much worse No change Minimally improved 07/10/2023 09/19/2023 12/05/2023 HIT-6 HIT-6 76 (Severe impact) 67 (Severe impact) 66 (Severe impact) 03/22/2023 07/10/2023 12/05/2023 OMID - 2/7 SCORES OMID-2 Score 2 2 2 4 OMID-7 Score 8 Multiple values from one day are sorted in reverse-chronological order 03/22/2023 07/10/2023 12/05/2023 Migraine Specific QOL - Higher scores indicate better HRQL Role Function-Restrictive Transformed Score (range: 0-100) 0 20 60 Role Function-Preventive Transformed Score (range: 0-100) 0 35 65 Emotional Function Transformed Score (range: 0-100) 0 40 80 12/05/2023 07/10/2023 03/22/2023 PHQ-9 Score 6 7 8 8 Multiple values from one day are sorted in reverse-chronological order I have reviewed the Osbaldo Status Assessment responses and discussed these with the patient: yes Ольга Aguilar APRN.PSYCHIATRIC MENTAL HEALTH NURSE Studies to Review: No New Health Issues: No New Social History: No New Family History: No REVIEW OF SYSTEMS: Review of system : unchanged from the previous visit (sleep patterns, mood, energy, appetite, stress, exercising). PHYSICAL EXAMINATION: General: Alert and oriented. Answered questions in an appropriate manner. Made eye contact without apparent pain behavior. HEENT: Head is normocephalic and features were symmetric. Cranial Nerves: II: Pupils: symmetric, Ill,lV,Vl: nl eye movements VII: Face symmetric. Motor: Bulk: Normal for age and gender. No abnormal movements were appreciated. MRI Head/Brain - Last 2 Impressions MRI BRAIN WO/W IVCON Exam End: 10/19/2021 4:18 PM (Final result) Impression: Unremarkable MR brain. MRI Spine - Last 2 Impressions No resulted procedures found. CT Head/Brain - Last [address] BRAIN WO IVCON Exam End: 12/20/2021 12:03 PM (Final result) CT BRAIN WO IVCON Exam End: 12/24/2020 8:27 PM (Final result) Impression: No acute intracranial abnormality. IMPRESSION: 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 without status migrainosus (primary encounter diagnosis) Coni Nicholson is a 28 year old year old female, with a history of asthma, anxiety, depression, PCOS, occipital neuralgia, psychogenic nonepileptic seizures, and chronic migraine.. Her headache intensity decreased after first Vyepti Coni Nicholson has been previously approved for Calcitonin Gene Related Peptide Monoclonal Antibody (CGRP MAB) (Eptinezumab). The patient has demonstrated the following: Patient reduction in overall migraine days: Yes Patient reduction in moderate-severe migraine days: Yes Individual has obtained clinical benefit deemed significant by individual or prescriber: Yes Patient's quality of life and ability to perform ADLs has improved: Yes We suggest the patient continue treatment with CGRP MAB Eptinezumab. The following preventative medications have been tried for three or more months without benefit: Anti-Convulsant Lamotrigine (Lamictal) Topiramate (Topamax, Trokendi XL, Qudexy) Anti-Depressant and Antipsychotic Amitriptyline (Elavil) [place] (Eskalith, Lithobid) Nortriptyline (Pamelor, Aventyl) Blood Pressure Propranolol (Inderal) MABs Fremanezumab (Ajovy) Galcanezumab (Emgality) Botulinum Toxin Onabotulinum Toxin A (Botox) Supplements Magnesium The following abortive medications have been tried but require high frequency use which can lead to Medication Overuse Headache: Analgesic Ketorolac (Toradol) Anti-Migraine Dihydroergotamine (DHE-45, Migranal) Naratriptan (Amerge) Sumatriptan (Imitrex, Sumavel) Zolmitriptan (Zomig) PLAN: Take Parafon Forte 3 times a day x 5 days, to break current headache cycle Take Marycruz or Zyrtec prior to Vyepti infusion Toradol can be added day of infusion if headache is present MEDICATION TREATMENT: Medications to Start Taking None HEADACHE MANAGEMENT: (You are the primary guardian of your health and headache. Keep track of all medications: This includes the reason for use, side effects and benefits.) Headache education was done. Discussed lifestyle modification [...] outlining all of the above were given. Follow-up: for IV infusion Level of service: Est level 3 (20-29 min). Time spent 22 min on the day of service, which included preparing to see the patient, [id number] patient care, completing clinical documentation, and counseling and educating the patient/family/caregiver. Ольга Aguilar APRN.FADY documented in this encounter [facility] 12-05-2023 Note HNO ID: [id number] Author: ОЛЬГА AGUILAR APRN.FADY Service: ? Author Type: Nurse Practitioner Type: Progress Notes Filed: 12/05/2023 07:28 Note Text: [facility]ache Center - Follow up Virtual Visit Last OV: 08/23/23 Sona Barth APRN Accompanied by: Self This visit was conducted as a virtual visit, with patient's permission, via ZOOM. It required patient-provider interaction for the medical decision making as documented below. Patient stated name and Patient location [place], [place] I have communicated my name and active licensure. The patient's identity and physical location were verified at the time of this visit. Either the patient or their legal patient care representative has been informed of the risks and benefits of -- and alternatives to -- treatment through a remote evaluation and consents to proceed with the evaluation remotely. Primary Problem List: ACTIVE PROBLEM LIST Seizure-Like Activity (Hcc) Psychogenic Nonepileptic Seizure Intractable Chronic Migraine Without Aura and With Status Migrainosus Chronic Migraine Without Aura, With Intractable Migraine, So Stated, With Status Migrainosus Intractable Chronic Migraine Without Aura and Without Status Migrainosus Chief Complaint: Headache Interval Headache Hx: Had 1 treatment Vyepti, next dose 01/05/24 Decreased Plan from last visit: IMPRESSION: Coni Nicholson is a 27 year [...] - continue all other medications as rx'ed Headache 1 Location: frontal Quality/Description: pressure, throbbing and piercing/stabbing Associated Symptoms: Photophobia: yes Phonophobia: yes Nausea: yes Vomiting: yes Other symptoms: osmophobia and neck pain Worse with activity: yes Number of migraine headache days/month: 15 Migraine headache severity: 8/10 Number of headache free days/month: 10 Duration of headaches with treatment: 2 days (48 hours) Triggers: stress, weather changes and sleep- too little Onset of headache to peak: abrupt Positional changes: no Most common time of day for headache to begin: anytime Aura: blurred vision and sparklers Allodynia: yes - scalp Headache status since the last visit: better Lifestyle: Sleep: 5-8, woken by child Issues and questions to be addressed: Medications Current Outpatient Medications Medication Sig promethazine (PHENERGAN) 25 mg tablet Take 1 tablet by mouth every 4 hours as needed. FOR NAUSEA ZOLMitriptan (ZOMIG) 5 mg nasal spray Use 1 [place] in the nose as needed at onset of migraine headache. If symptoms persist or return, may repeat dose in other nostril after 2 hours. Maximum of 2 sprays per 24 hours keTORolac (TORADOL) 10 mg tablet Take 1 tablet by mouth every 6 hours as needed (severe migraine). chlorzoxazone (PARAFON FORTE DSC) 500 mg tablet Take 1 tablet by mouth two times a day as needed for muscle spasm (migraine). magnesium oxide 400 mg magnesium cap Take 1 capsule by mouth daily at bedtime. lumateperone (CAPLYTA) 10.5 mg capsule Take 10.5 mg by mouth once daily. Phentermine HCl 37.5 mg tablet lithium carbonate 300 mg tablet traZODone (DESYREL) 100 mg tablet lamoTRIgine (LAMICTAL) 150 mg tablet diazePAM (VALIUM) 10 mg tablet Current Facility-Administered Medications Medication Dose Route Frequency onabotulinum toxin type A 200 Units injection (BOTOX) 200 Units INTRAMUSCULAR q 3 MONTHS ALLERGIES Allergen Reactions Dihydroergotamine Intolerance Chest tightness, numbness and tingling in bilateral extremities, increased anxiety Adhesive Tape-Silic* Rash Azithromycin Other: See Comments Keflex [Cephalexin] Rash Keppra [Levetiracet* Itching Pyrilamine-Dextrome* Hives Reglan [Metoclopram* Intolerance Vortioxetine Hives HEADACHE SCORES: 07/10/2023 09/19/2023 12/05/2023 Headache Questions ER visits since last office visit: 8 6 1 Hospital stays since last office visit 2 1 1 Limited ADLs in the last month: 12 Days headache pain free in the last month: 10 Days per month with ALL of the following symptoms - decreased productivity, light sensitivity and nausea: 30 Initial improvement of headache after botox injection at last visit: No change Patient impression of improvement since last visit: Very much worse No change Minimally improved 07/10/2023 09/19/2023 12/05/2023 HIT-6 HIT-6 76 (Severe impact) 67 (Severe impact) 66 (Severe impact) 03/22/2023 07/10/2023 12/05/2023 OMID - 2/7 SCORES OMID-2 Score 2 2 2 4 OMID-7 Score 8 Multiple values from one day are sorted in reverse-chronological order 03/22/2023 07/10/2023 1 (more content not included)... [facility] 09-20-2024 Telephone encounter Note The following approved medication requests have been transmitted electronically. Requested Prescriptions Signed Prescriptions Disp Refills ZOLMitriptan (ZOMIG) 5 mg nasal spray 10 Each 5 Sig: Use 1 [place] in the nose as needed at onset [...] spasm (migraine). Authorizing Provider: LOGAN BARTH APRN.CNP [facility] 11-10-2023 Miscellaneous Notes The following approved medication requests have been transmitted electronically. Requested Prescriptions Signed Prescriptions Disp Refills ZOLMitriptan (ZOMIG) 5 mg nasal spray 10 Each 5 Sig: Use 1 [place] in the nose as needed at onset [...] LOGAN BARTH APRN.CNP patient requesting refill via Aheadhart. Last OV: 09/19/2023 Future OV: None scheduled Last prescribed: 4 months ago (07/10/2023) by Logan Barth APRN.CNP Requested Prescriptions Pending Prescriptions Disp Refills ZOLMitriptan (ZOMIG) 5 mg nasal spray 10 Each 5 Sig: Use 1 [place] in the nose as needed at onset [...] muscle spasm (migraine). documented in this encounter [facility] 11-10-2023 Telephone encounter Note The following approved medication requests have been transmitted electronically. Requested Prescriptions Signed Prescriptions Disp Refills promethazine (PHENERGAN) 25 mg tablet 90 tablet 5 Sig: Take 1 tablet by mouth every 4 hours as needed. FOR NAUSEA Authorizing Provider: LOGAN BARTH APRN.CNP [facility] 11-10-2023 Miscellaneous Notes The following approved medication requests have been transmitted electronically. Requested Prescriptions Signed Prescriptions Disp Refills promethazine (PHENERGAN) 25 mg tablet 90 tablet 5 Sig: Take 1 tablet by mouth every 4 hours as needed. FOR NAUSEA Authorizing Provider: LOGAN BARTH APRN.CNP Physician: Tab Call from patient requesting refill. Please E-Scribe Last office visit 09/19/23 with Tab in person Next office visit N/A Requested Prescriptions Pending Prescriptions Disp Refills promethazine (PHENERGAN) 25 mg tablet 90 tablet 1 Sig: Take 1 tablet by mouth every 4 hours as needed. FOR NAUSEA Pharmacy Name: [facility] documented in this encounter [facility] 11-10-2023 Telephone encounter Note Physician: Tab Call from patient requesting refill. Please E-Scribe Last office visit 09/19/23 with Tab in person Next office visit N/A Requested Prescriptions Pending Prescriptions Disp Refills promethazine (PHENERGAN) 25 mg tablet 90 tablet 1 Sig: Take 1 tablet by mouth every 4 hours as needed. FOR NAUSEA Pharmacy Name: [facility]ana Sai [facility] 11-10-2023 Telephone encounter Note patient requesting refill via Aheadhart. Last OV: 09/19/2023 Future OV: None scheduled Last prescribed: 4 months ago (07/10/2023) by Logan Barth APRN.PSYCHIATRIC MENTAL HEALTH NURSE Requested Prescriptions Pending Prescriptions Disp Refills ZOLMitriptan (ZOMIG) 5 mg nasal spray 10 Each 5 Sig: Use 1 [place] in the nose as needed at onset [...] day as needed for muscle spasm (migraine). [facility] 10-13-2023 Note HNO ID: [id number] Author: JOHANA CANCINO RN Service: ? Author Type: Registered Nurse Type: Progress Notes Filed: 10/13/2023 14:00 Note Text: Pt in for Vyepti infusion. Pt rated headache 8 /10. Pt has severe nausea and mild dizziness. Educated pt on medications to be administered. Pt agreed to proceed as ordered. Retirement Consultant: yes Zofran 8 mg IVP given for [...] drive patient home. Patient d/c via wheelchair.. [facility] 10-13-2023 History of Presen t illness Narrative Pt in for Vyepti infusion. Pt rated headache 8 /10. Pt has severe nausea and mild dizziness. Educated pt on medications to be administered. Pt agreed to proceed as ordered. Retirement Consultant: yes Zofran 8 mg IVP given for [...] d/c via wheelchair.. documented in this encounter [facility] 09-19-2023 History of Presen t illness Narrative [...] XL, Qudexy) Anti-Depressant and Antipsychotic Amitriptyline (Elavil) [place] (Eskalith, Lithobid) Nortriptyline (Pamelor, Aventyl) Anti-Migraine Dihydroergotamine [...] ZOLMitriptan (ZOMIG) 5 mg nasal spray^Use 1 [place] in the nose as needed at onset [...] these with the patient: yes Logan Barth APRN.PSYCHIATRIC MENTAL HEALTH NURSE HEADACHE SCORES: 03/22/2023 07/10/2023 09/19/2023 Headache Questions [...] spontaneous and fluent without dysarthria. Short and penitentiary memory, cognition and general fund of knowledge [...] XL, Qudexy) Anti-Depressant and Antipsychotic Amitriptyline (Elavil) [place] (Eskalith, Lithobid) Nortriptyline (Pamelor, Aventyl) Blood Pressure [...] which included preparing to see the patient, [id number] patient care, completing clinical documentation, obtaining and/or reviewing separately obtained history, counseling and educating the patient/family/caregiver, ordering medications, tests, or procedures, and care coordination (not separately reported). Logan Barth APRN.CNP Headache Section [facility] September 19, 2023 documented in this encounter [facility] 09-19-2023 Note HNO ID: [id number] Author: LOGAN BARTH APRN.CNP Service: ? Author [...] XL, Qudexy) Anti-Depressant and Antipsychotic Amitriptyline (Elavil) [place] (Eskalith, Lithobid) Nortriptyline (Pamelor, Aventyl) Anti-Migraine Dihydroergotamine [...] ZOLMitriptan (ZOMIG) 5 mg nasal sprayUse 1 [place] in the nose as needed at onset [...] these with the patient: yes Logan Barth APRN.PSYCHIATRIC MENTAL HEALTH NURSE HEADACHE SCORES: 03/22/2023 07/10/2023 09/19/2023 Headache Questions [...] of headache after (more content not included)... [facility] 08-18-2023 Instructions Curtis Lepe PA-C - 08/18/2023 2:39 PM EDT You received a greater occipital nerve block (GONB) today You may feel sore tomorrow at the site of the injection. You may use heat or ice for discomfort and gentle stretching. This should resolve in 24-36 hours. Greater Occipital Nerve Block (GONB) Article in [place] [employer] Journal By: Molina Barraza MD Many patients with chronic headache report that their pain typically arises from the neck or, more specifically, the base of the skull. Often that pain arises on one side or the other and extends forward to involve the top of the head, the mormon, the forehead, the eye or some combination [...] it at least one more try. https://americanheadachesociety. org/wp-content/uploads/2017/05/O iesdvert-Kctpp-Jdjzlk_Rzu-2010.p df documented in this encounter [facility] 08-18-2023 History of Presen t illness Narrative [...] to follow-up with epilepsy clinic -Follow-up with [facility] in 1 month Curtis Lepe PA-C Headache Section [facility] August 18, 2023 documented in this encounter [facility] 08-18-2023 Note HNO ID: [id number] Author: CURTIS LEPE PA-C Service: ? Author Type: Physician Mud Worker Type: Progress Notes Filed: 08/18/2023 14:39 Note [...] 1 month Curtis Lepe PA-C Headache Section [facility] August 18, 2023 [facility] 08-16-2023 Telephone encounter Note Forwarded to provider for review. PAPO: 07/10/2023 Future OV: 09/19/2023 Encounter from [facility] today 08/16/2023 [facility] 08-16-2023 Miscellaneous Notes Forwarded to provider for review. PAPO: 07/10/2023 Future OV: 09/19/2023 Encounter from [facility] today 08/16/2023 documented in this encounter [facility] 07-10-2023 History of Presen t illness Narrative [...] visit. Either the patient or their legal patient care representative has been informed of the risks [...] XL, Qudexy) Anti-Depressant and Antipsychotic Amitriptyline (Elavil) [place] (Eskalith, Lithobid) Nortriptyline (Pamelor, Aventyl) Anti-Migraine Dihydroergotamine [...] ZOLMitriptan (ZOMIG) 5 mg nasal spray^Use 1 [place] in the nose as needed at onset [...] these with the patient: yes Logan Barth APRN.PSYCHIATRIC MENTAL HEALTH NURSE HEADACHE SCORES: 12/12/2022 03/22/2023 07/10/2023 Headache Questions [...] Lymph 1.00 - 4.00 k/uL 0.84 Abs [place] <0.87 k/uL 0.06 Abs Eosin <0.46 k/uL [...] spontaneous and fluent without dysarthria. Short and authorization rep memory, cognition and general fund of knowledge [...] XL, Qudexy) Anti-Depressant and Antipsychotic Amitriptyline (Elavil) [place] (Eskalith, Lithobid) Nortriptyline (Pamelor, Aventyl) Blood Pressure [...] (ZOMIG) 5 mg nasal spray Use 1 [place] in the nose as needed at onset [...] Service: Virtual Visit 40 minutes Logan Barth APRN.FADY Headache Section [facility] July 10, 2023 documented in this encounter [facility] 07-10-2023 Note HNO ID: [id number] Author: LOGAN BARTH APRN.FADY Service: ? Author [...] visit. Either the patient or their legal patient care representative has been informed of the risks [...] XL, Qudexy) Anti-Depressant and Antipsychotic Amitriptyline (Elavil) [place] (Eskalith, Lithobid) Nortriptyline (Pamelor, Aventyl) Anti-Migraine Dihydroergotamine [...] ZOLMitriptan (ZOMIG) 5 mg nasal sprayUse 1 [place] in the nose as needed at onset [...] 8 [facility] (more content not included)... [facility] 06-26-2023 Telephone encounter Note Called Pt to clarify ER visit. States she was seen this morning at [facility] and given a Compazine and steroid shot States she cannot remember the name of steroid that was given. Information passed on to care team. Marc TOMAS RN Clinical Collection Systems Technician [facility] 06-26-2023 Miscellaneous Notes Called Pt to clarify ER visit. States she was seen this morning at [facility] and given a Compazine and steroid shot States she cannot remember the name of steroid that was given. Information passed on to care team. Marc TOMAS RN Clinical Collection Systems Technician [facility] documented in this encounter [facility] 06-26-2023 Telephone encounter Note Forwarded to provider for review. PAPO: 04/14/2023 with Suzan Driver APRN.FADY Future OV: None scheduled [facility] 06-26-2023 Miscellaneous Notes Forwarded to provider for review. PAPO: 04/14/2023 with Suzan Driver APRN.CNP Future OV: None scheduled [employer] message sent to patient to gain more information in regards to patient's migraine. documented in this encounter [facility] 06-26-2023 Telephone encounter Note Lender Sentinel message sent to patient to gain more information in regards to patient's migraine. [facility] 04-14-2023 Instructions Suzan Driver APRN.PSYCHIATRIC MENTAL HEALTH NURSE - 04/14/2023 10:49 AM EST Follow up/ [...] refilled without delays. documented in this encounter [facility] 04-14-2023 History of Presen t illness [...] ZOLMitriptan (ZOMIG) 5 mg nasal spray^Use 1 [place] in the nose as needed at onset [...] and clear, coherent, and relevant. Short and authorization rep memory, cognition and general fund of knowledge [...] which included preparing to see the patient, lmob-zj-ctjn patient care, completing clinical documentation, obtaining and/or reviewing separately obtained history, performing a medically appropriate examination, counseling and educating the patient/family/caregiver, and ordering medications, tests, or procedures. Suzan Driver APRN.CNP Headache Section [facility] documented in this encounter [facility] 04-14-2023 Note HNO ID: [id number] Author: SUZAN DRIVER APRN.CNP Service: ? Author [...] ZOLMitriptan (ZOMIG) 5 mg nasal sprayUse 1 [place] in the nose as needed at onset [...] and clear, coherent, and relevant. Short and penitentiary memory, cognition and general fund of knowledge [...] which included preparing to see the patient, dtks-ev-yuad patient care, completing clinical documentation, obtaining and/or reviewing separately obtained history, performing a medically appropriate examination, counseling and educating the patient/family/caregiver, and ordering medications, tests, or procedures. Suzan Driver, UMANG.PSYCHIATRIC MENTAL HEALTH NURSE Headache Section [facility] 04-14-2023 Note HNO ID: [id number] Author: INOCENCIO NAIR RN Service: ? Author [...] anything else can be given for anxiety. [facility] SURGICAL SUPERVISOR notified. New PIV site started, 2nd dose of Benadryl given for anxiety. 2nd line: Compazine given for severe nausea. [facility] SURGICAL SUPERVISOR to hold Periactin today as the two doses of Benadryl and Compazine can cause drowsiness. Pts infusion complete, tolerated infusion. Headache 4/10. Pt stated no nausea and moderate dizziness. PIV site removed. Pt discharged from txt room at 1124 via wheelchair to ride in lobby. [facility] 04-14-2023 History of Presen t illness [...] anything else can be given for anxiety. [facility] SURGICAL SUPERVISOR notified. New PIV site started, 2nd dose of Benadryl given for anxiety. 2nd line: Compazine given for severe nausea. [facility] SURGICAL SUPERVISOR to hold Periactin today as the two doses of Benadryl and Compazine can cause drowsiness. Pts infusion complete, tolerated infusion. Headache 4/10. Pt stated no nausea and moderate dizziness. PIV site removed. Pt discharged from txt room at 1124 via wheelchair to ride in [place]. documented in this encounter [facility] 04-13-2023 Note HNO ID: [id number] Author: JOHANA CANCINO RN Service: ? Author [...] She is working with a psychiatrist in [place] . Voiced stress is her biggest trigger for headaches. 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 I mentioned to patient our reboot program . Patient very interested to learn about it. Message send to our agricultural scientist and Rhina Lim to set up patient for evaluation. 1020 Patient sleeping on and off. Nausea subsiding. Patient declined Zofran. Stated Zofran ineffective. 1050 Infusion complete. Patient slept on and off. Nausea resolved. PINEDA 6/10. Patient verbal , appears sedated . D/c via wheel chair to her in [facility]. [facility] 04-13-2023 History of Presen t illness [...] She is working with a psychiatrist in [place] . Voiced stress is her biggest trigger for headaches. 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 I mentioned to patient our reboot program . Patient very interested to learn about it. Message send to our agricultural scientist and Rhina Lim to set up patient for evaluation. 1020 Patient sleeping on and off. Nausea subsiding. Patient declined Zofran. Stated Zofran ineffective. 1050 Infusion complete. Patient slept on and off. Nausea resolved. PINEDA 6/10. Patient verbal , appears sedated . D/c via wheel chair to her in [facility]. documented in this encounter [facility] 04-13-2023 Miscellaneous Notes Patient is currently receiving infusions for headache. She is interested in learning about reboot program. Please schedule for evaluation. Johana Cancino RN documented in this encounter [facility] 04-12-2023 History of Presen t illness [...] orders were placed: NO Cardiovascular risk factors ([place]/STROKE/CAD/HTN): no Last triptan dose: none in 2 [...] ZOLMitriptan (ZOMIG) 5 mg nasal spray^Use 1 [place] in the nose as needed at onset [...] and clear, coherent, and relevant. Short and authorization rep memory, cognition and general fund of knowledge [...] which included preparing to see the patient, rpyj-lu-pjbq patient care, completing clinical documentation, obtaining and/or reviewing separately obtained history, performing a medically appropriate examination, counseling and educating the patient/family/caregiver, and ordering medications, tests, or procedures. Suzan Driver APRN.CNP Headache Section [facility] documented in this encounter [facility] 04-12-2023 Note HNO ID: [id number] Author: SUZAN DRIVER APRN.CNP Service: ? Author [...] orders were placed: NO Cardiovascular risk factors ([place]/STROKE/CAD/HTN): no Last triptan dose: none in 2 [...] ZOLMitriptan (ZOMIG) 5 mg nasal sprayUse 1 [place] in the nose as needed at onset [...] and clear, coherent, and relevant. Short and penitentiary memory, cognition and general fund of knowledge [...] which included preparing to see the patient, mrki-fv-pgdq patient care, completing clinical documentation, obtaining and/or reviewing separately obtained history, performing a medically appropriate examination, counseling and educating the patient/family/caregiver, and ordering medications, tests, or procedures. Suzan Driver APRN.PSYCHIATRIC MENTAL HEALTH NURSE Headache Section [facility] 04-12-2023 Note HNO ID: [id number] Author: SUZAN JEFF RN Service: ? Author [...] vs oral periactin for sedation. Rhina Driver SURGICAL SUPERVISOR updated and agreeable. PIV started on 3rd [...] wheelchair due to effects from oral medications. [facility] 04-12-2023 History of Presen t illness Narrative 1105 Patient in for first day of IV infusions. Patient rated headache 8/10. Patient stated severe nausea and mild dizziness. Patient educated on medications to be administered. Patient verbalized understanding and agreed to proceed with infusions. Patient requested the PRN IV Benadryl vs oral periactin for sedation. Rhina Driver SURGICAL SUPERVISOR updated and agreeable. PIV started on 3rd [...] from oral medications. documented in this encounter [facility] 04-12-2023 Instructions Suzan Driver APRN.PSYCHIATRIC MENTAL HEALTH NURSE - 04/12/2023 11:52 AM EST General Headache [...] much light. These can be obtained at [employer] or [employer]: see list below. 2. Limit use of acute treatments (jgxv-vbf-dlsfluf medications, triptans, etc.) to no more than [...] and quiet environment. Relax and reduce stress. [employer] is a free catrina that can instruct you on some simple relaxtion and breathing techniques. Http://dineout is a free website that provides teaching [...] ensuing treatment plans will be released via Lender Sentinel and discussed during your follow-up appointment. Follow-up appointments are primarily provided by the Nurse Practitioners and Physician s Assistants in order to provide timely, accessible care. Lender Sentinel: Please ask the schedulers to give you an activation code. The main way of communication is by Servergyhart rather than phone lines, so if you have not signed up, please do so. Lender Sentinel is also the way that you can review your labs and testing. We are not able to contact everyone to tell them results are normal. If you do not hear back from us regarding testing you have had, it should be considered normal or within normal range. If you have any questions about the results, you are free to message us. Lender Sentinel is meant for simple questions regarding medications,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 Referral ID Status Reason Start Date Expiration Date Visits Requested Visits Authorized [id number] Authorized PCP Requested Referral 10/29/2021 10/29/2022 1 1 [facility] for referral (narrative)* Outpatient Procedure (Routine) - Pending Review Specialty Diagnoses / Procedures Referred By Contac t Referred To Contact [facility] Diagnoses Seizure-like activity (HCC) Procedures EPIL EEG ROUTINE ELECTROENCEPHALOGRAM REC COMA/SLEEP ONLY Nelly Saldaña PA-C [address] [place] [address] [place] [address] Referral ID Status Reason Start Date Expiration Date Visits Requested Visits Authorized [id number] Pending Review Auto-Generat ed Referral 11/08/2021 11/08/2022 1 1 [facility] Advance Directives Documents on File Type Date Recorded Patient Sanitarian Inspector Expl anation ACP-Advance Directive ACP-Power of High School Assistant Principal Latest Code Status on File Code Status [...] t Referred To Contact Jesse Borrego MD [address] [id number] Referral ID Status Reason Start Date Expiration Date Visits Re quested Visits Authorized [id number] Closed 1 1 Specialty Diagnoses / Procedures Referred By Contac t Referred To Contact Diagnoses 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 with status migrainosus Intractable chronic migraine without aura and without status migrainosus Procedures PROVIDER ORDERED FOLLOW UP OFFICE/OUTPATIENT [facility] 60 MINUTES Suzan Driver APRN.PSYCHIATRIC MENTAL HEALTH NURSE [address] [place] [address] Referral ID Status Reason Start Date Expiration Date Visits Requested Visits Authorized [id number] Authorized PCP Requested Referral 07/13/2023 04/13/2024 1 1 Specialty Diagnoses / Procedures Referred By Contac t Referred To Contact Diagnoses Intractable chronic migraine without aura and without status migrainosus Procedures PROVIDER ORDERED FOLLOW UP OFFICE/OUTPATIENT [facility] MDM 60 MINUTES Logan Barth APRN.PSYCHIATRIC MENTAL HEALTH NURSE [address] [place] [address] Referral ID Status Reason Start Date Expiration Date Visits Requested Visits Authorized [id number] Authorized PCP Requested Referral 10/10/2023 07/09/2024 1 1 Specialty Diagnoses / Procedures Referred By Contac t Referred To Contact Logan Barth APRN.PSYCHIATRIC MENTAL HEALTH NURSE [address] [place] [address] Referral ID Status Reason Start Date Expiration Date V isits Requested Visits Authorized [id number] Authorized 07/10/2023 09/22/2023 1 1 Specialty Diagnoses / Procedures Referred By Contac t Referred To Contact Psychology Diagnoses Psychogenic nonepileptic seizure Procedures CONSULT TO PSYCHOLOGY OFFICE/OUTPATIENT [facility] 60 MINUTES Curtis Lepe PA-C [address] [place] [address] Referral ID Status Reason Start Date Expiration Date Visits Requested Visits Authorized [id number] Pending Review PCP Requested Referral 08/18/2023 08/17/2024 1 1 Additional Source Comments Source Comments (unrecognize d section and content) In the event this informatio n is protected by the Federal Confidentiality of Alcohol and Drug Abuse Patient Records regulations: The Federal rules restrict any use of the information to criminally investigate or prosecute any alcohol or drug abuse patient.[facility] event this information is protected by the Federal Confidentiality of Alcohol and Drug Abuse Patient Records regulations: The Federal rules restrict any use of the information to criminally investigate or prosecute any alcohol or drug abuse patient.[facility] the event this information is protected by the Federal Confidentiality of Alcohol and Drug Abuse Patient Records regulations: The Federal rules restrict any use of the information to criminally investigate or prosecute any alcohol or drug abuse patient.[facility] the event this information is protected by the Federal Confidentiality of Alcohol and Drug Abuse Patient Records regulations: The Federal rules restrict any use of the information to criminally investigate or prosecute any alcohol or drug abuse patient.[facility] the event this information is protected by the Federal Confidentiality of Alcohol and Drug Abuse Patient Records regulations: The Federal rules restrict any use of the information to criminally investigate or prosecute any alcohol or drug abuse patient.[facility] the event this information is protected by the Federal Confidentiality of Alcohol and Drug Abuse Patient Records regulations: The Federal rules restrict any use of the information to criminally investigate or prosecute any alcohol or drug abuse patient.[facility] the event this information is protected by the Federal Confidentiality of Alcohol and Drug Abuse Patient Records regulations: The Federal rules restrict any use of the information to criminally investigate or prosecute any alcohol or drug abuse patient.[facility] the event this information is protected by the Federal Confidentiality of Alcohol and Drug Abuse Patient Records regulations: The Federal rules restrict any use of the information to criminally investigate or prosecute any alcohol or drug abuse patient.[facility] the event this information is protected by the Federal Confidentiality of Alcohol and Drug Abuse Patient Records regulations: The Federal rules restrict any use of the information to criminally investigate or prosecute any alcohol or drug abuse patient.[facility] the event this information is protected by the Federal Confidentiality of Alcohol and Drug Abuse Patient Records regulations: The Federal rules restrict any use of the information to criminally investigate or prosecute any alcohol or drug abuse patient.[facility] the event this information is protected by the Federal Confidentiality of Alcohol and Drug Abuse Patient Records regulations: The Federal rules restrict any use of the information to criminally investigate or prosecute any alcohol or drug abuse patient.[facility] the event this information is protected by the Federal Confidentiality of Alcohol and Drug Abuse Patient Records regulations: The Federal rules restrict any use of the information to criminally investigate or prosecute any alcohol or drug abuse patient.[facility] the event this information is protected by the Federal Confidentiality of Alcohol and Drug Abuse Patient Records regulations: The Federal rules restrict any use of the information to criminally investigate or prosecute any alcohol or drug abuse patient.[facility] the event this information is protected by the Federal Confidentiality of Alcohol and Drug Abuse Patient Records regulations: The Federal rules restrict any use of the information to criminally investigate or prosecute any alcohol or drug abuse patient.[facility] the event this information is protected by the Federal Confidentiality of Alcohol and Drug Abuse Patient Records regulations: The Federal rules restrict any use of the information to criminally investigate or prosecute any alcohol or drug abuse patient.[facility] the event this information is protected by the Federal Confidentiality of Alcohol and Drug Abuse Patient Records regulations: The Federal rules restrict any use of the information to criminally investigate or prosecute any alcohol or drug abuse patient.[facility] the event this information is protected by the Federal Confidentiality of Alcohol and Drug Abuse Patient Records regulations: The Federal rules restrict any use of the information to criminally investigate or prosecute any alcohol or drug abuse patient.[facility] the event this information is protected by the Federal Confidentiality of Alcohol and Drug Abuse Patient Records regulations: The Federal rules restrict any use of the information to criminally investigate or prosecute any alcohol or drug abuse patient.[facility] the event this information is protected by the Federal Confidentiality of Alcohol and Drug Abuse Patient Records regulations: The Federal rules restrict any use of the information to criminally investigate or prosecute any alcohol or drug abuse patient.[facility] the event this information is protected by the Federal Confidentiality of Alcohol and Drug Abuse Patient Records regulations: The Federal rules restrict any use of the information to criminally investigate or prosecute any alcohol or drug abuse patient.[facility] the event this information is protected by the Federal Confidentiality of Alcohol and Drug Abuse Patient Records regulations: The Federal rules restrict any use of the information to criminally investigate or prosecute any alcohol or drug abuse patient.[facility] the event this information is protected by the Federal Confidentiality of Alcohol and Drug Abuse Patient Records regulations: The Federal rules restrict any use of the information to criminally investigate or prosecute any alcohol or drug abuse patient.[facility] the event this information is protected by the Federal Confidentiality of Alcohol and Drug Abuse Patient Records regulations: The Federal rules restrict any use of the information to criminally investigate or prosecute any alcohol or drug abuse patient.[facility] the event this information is protected by the Federal Confidentiality of Alcohol and Drug Abuse Patient Records regulations: The Federal rules restrict any use of the information to criminally investigate or prosecute any alcohol or drug abuse patient.[facility] the event this information is protected by the Federal Confidentiality of Alcohol and Drug Abuse Patient Records regulations: The Federal rules restrict any use of the information to criminally investigate or prosecute any alcohol or drug abuse patient.[facility] the event this information is protected by the Federal Confidentiality of Alcohol and Drug Abuse Patient Records regulations: The Federal rules restrict any use of the information to criminally investigate or prosecute any alcohol or drug abuse patient.[facility] the event this information is protected by the Federal Confidentiality of Alcohol and Drug Abuse Patient Records regulations: The Federal rules restrict any use of the information to criminally investigate or prosecute any alcohol or drug abuse patient.[facility] the event this information is protected by the Federal Confidentiality of Alcohol and Drug Abuse Patient Records regulations: The Federal rules restrict any use of the information to criminally investigate or prosecute any alcohol or drug abuse patient.[facility] the event this information is protected by the Federal Confidentiality of Alcohol and Drug Abuse Patient Records regulations: The Federal rules restrict any use of the information to criminally investigate or prosecute any alcohol or drug abuse patient.[facility] the event this information is protected by the Federal Confidentiality of Alcohol and Drug Abuse Patient Records regulations: The Federal rules restrict any use of the information to criminally investigate or prosecute any alcohol or drug abuse patient.[facility] the event this information is protected by the Federal Confidentiality of Alcohol and Drug Abuse Patient Records regulations: The Federal rules restrict any use of the information to criminally investigate or prosecute any alcohol or drug abuse patient.[facility] the event this information is protected by the Federal Confidentiality of Alcohol and Drug Abuse Patient Records regulations: The Federal rules restrict any use of the information to criminally investigate or prosecute any alcohol or drug abuse patient.[facility] HospitalIn the event this information is protected by the Federal Confidentiality of Alcohol and Drug Abuse Patient Records regulations: The Federal rules restrict any use of the information to criminally investigate or prosecute any alcohol or drug abuse patient.[facility] HospitalIn the event this information is protected by the Federal Confidentiality of Alcohol and Drug Abuse Patient Records regulations: The Federal rules restrict any use of the information to criminally investigate or prosecute any alcohol or drug abuse patient.[facility]In the event this information is protected by the Federal Confidentiality of Alcohol and Drug Abuse Patient Records regulations: The Federal rules restrict any use of the information to criminally investigate or prosecute any alcohol or drug abuse patient.[facility] HospitalIn the event this information is protected by the Federal Confidentiality of Alcohol and Drug Abuse Patient Records regulations: The Federal rules restrict any use of the information to criminally investigate or prosecute any alcohol or drug abuse patient.[facility] HospitalIn the event this information is protected by the Federal Confidentiality of Alcohol and Drug Abuse Patient Records regulations: The Federal rules restrict any use of the information to criminally investigate or prosecute any alcohol or drug abuse patient.[facility] HospitalIn the event this information is protected by the Federal Confidentiality of Alcohol and Drug Abuse Patient Records regulations: The Federal rules restrict any use of the information to criminally investigate or prosecute any alcohol or drug abuse patient.[facility] HospitalIn the event this information is protected by the Federal Confidentiality of Alcohol and Drug Abuse Patient Records regulations: The Federal rules restrict any use of the information to criminally investigate or prosecute any alcohol or drug abuse patient.[facility] HospitalIn the event this information is protected by the Federal Confidentiality of Alcohol and Drug Abuse Patient Records regulations: The Federal rules restrict any use of the information to criminally investigate or prosecute any alcohol or drug abuse patient.[facility] HospitalIn the event this information is protected by the Federal Confidentiality of Alcohol and Drug Abuse Patient Records regulations: The Federal rules restrict any use of the information to criminally investigate or prosecute any alcohol or drug abuse patient.[facility] HospitalIn the event this information is protected by the Federal Confidentiality of Alcohol and Drug Abuse Patient Records regulations: The Federal rules restrict any use of the information to criminally investigate or prosecute any alcohol or drug abuse patient.[facility] HospitalIn the event this information is protected by the Federal Confidentiality of Alcohol and Drug Abuse Patient Records regulations: The Federal rules restrict any use of the information to criminally investigate or prosecute any alcohol or drug abuse patient.[facility] HospitalIn the event this information is protected by the Federal Confidentiality of Alcohol and Drug Abuse Patient Records regulations: The Federal rules restrict any use of the information to criminally investigate or prosecute any alcohol or drug abuse patient.[facility] HospitalIn the event this information is protected by the Federal Confidentiality of Alcohol and Drug Abuse Patient Records regulations: The Federal rules restrict any use of the information to criminally investigate or prosecute any alcohol or drug abuse patient.[facility] HospitalIn the event this information is protected by the Federal Confidentiality of Alcohol and Drug Abuse Patient Records regulations: The Federal rules restrict any use of the information to criminally investigate or prosecute any alcohol or drug abuse patient.[facility] Reason for Visit (unrecogniz ed section and content) Reason Comments Migraine Specialty Diagnoses / Procedures Referred By Contac t Referred To Contact Diagnoses Intractable chronic migraine without aura and without status migrainosus Procedures PROVIDER ORDERED FOLLOW UP OFFICE/OUTPATIENT [facility] 60 MINUTES Loagn Barth, STEEL LAYOUT WORKER.PSYCHIATRIC MENTAL HEALTH NURSE [address] [place] [address] Referral ID Status Reason Start Date Expiration Date V isits Requested Visits Authorized [id number] Closed PCP Requested Referral 10/10/2023 07/09/2024 1 1 Reason Comments Infusion Headache Specialty Diagnoses / Procedures Referred By Contac t Referred To Contact Diagnoses Intractable chronic migraine without aura and without status migrainosus Procedures INJECTION, EPTINEZUMAB-JJMR, 1 MG Logan Barth, STEEL LAYOUT WORKER.PSYCHIATRIC MENTAL HEALTH NURSE [address] [place] [address] Neur Headache Main [address] [place] [id number] Referral ID Status Reason Start Date Expiration Date V isits Requested Visits Authorized [id number] Authorized 09/20/2023 03/22/2024 2 2 Reason Comments Nerve Block Specialty Diagnoses / Procedures Referred By Contac t Referred To Contact Neurology / HEADACHE Diagnoses NON-DHE #1 Procedures INFUSION HEADACHE [facility] AmericaAshlynSuzan, STEEL LAYOUT WORKER.PSYCHIATRIC MENTAL HEALTH NURSE [address] [place] [address] Neur Headache Main [address] [place] [address] Referral ID Status Reason Start Date Expiration Date V isits Requested Visits Authorized [id number] Authorized 04/12/2023 02/20/2024 99 99 Reason Comments Headache Infusion Specialty Diagnoses / Procedures Referred By Contac t Referred To Contact Neurology / HEADACHE Diagnoses NON-DHE #1 Procedures INFUSION HEADACHE [facility] America[facility], STEEL LAYOUT WORKER.PSYCHIATRIC MENTAL HEALTH NURSE [address] [place] [address] Neur Headache Main [address] [place] [address] Reason Comments Future Appointment [place], [place], [...] DHE Procedures INFUSION HEADACHE Abdifatah Brady MD [address] [place] [address] Neur Headache Main [address] [place] [address] Referral ID Status Reason Start Date Expiration Date Visits Re quested Visits Authorized [id number] Closed 07/28/2022 09/26/2022 1 1 Reason Comments Chronic Migraine Reason Comments Chronic Migraine Reason Comments Insurance Authorization Zomig 5MG nasal spray Reason Comments Infusion Reason Comments Migraine Specialty Diagnoses / Procedures Referred By Contac t Referred To Contact Neurology / HEADACHE Diagnoses POSSIBLE DHE/WAITING FOR ORDERS Procedures INFUSION HEADACHE Self Neur Headache Main [address] [place] [address] Referral ID Status Reason Start Date Expiration Date V isits Requested Visits Authorized [id number] Authorized 11/10/2022 02/08/2023 1 99 Reason Onset [...] Headache Specialty Diagnoses / Procedures [facility] Contact Neurology / HEADACHE Diagnoses Chronic migraine without aura, intractable, without status migrainosus Migraines Nerve Block Procedures INJECTION AA&/STRD [facility] NERVE NERVE BLOCK Logan Barth, UMANG.PSYCHIATRIC MENTAL HEALTH NURSE [address] [place] [id number] Tyrone Dolan MD, PhD [address] [facility] [address] [place] [address] Referral ID Status Reason Start Date Expiration Date Visits Re quested Visits Authorized [id number] Closed 08/28/2023 02/20/2024 1 1 Reason Onset Date Comments Refill Request 11/10/2023 Specialty Diagnoses / Procedures Referred By Contac t Referred To Contact Diagnoses Intractable chronic migraine without aura and without status migrainosus Procedures PROVIDER ORDERED FOLLOW UP OFFICE/OUTPATIENT [facility] 60 MINUTES Logan Barth, STEEL LAYOUT WORKER.PSYCHIATRIC MENTAL HEALTH NURSE [address] [place] [address] Referral ID Status Reason Start Date Expiration Date V isits Requested Visits Authorized [id number] Closed PCP Requested Referral 10/10/2023 07/09/2024 1 1 Scheduled Active and Recently Administ ered Medications (unrecognized section and content) Medication Order 12/22/2020 12/23/2020 12/24/2020 0.9 % sodium chloride bolus (COMPLETED) 1,000 mL, IntraVENous, at 1,000 mL/hr, Administer over 1 Hours, ONCE, On Mon12/24/20 at 2030, For 1 dose 2041 (New [...] content) DATE CREATED AUTHOR 12/26/2020 [facility] DATE CREATED AUTHOR AUTHOR'S ORGANIZ ATION 10/25/2021 [facility] DATE CREATED AUTHOR AUTHOR'S ORGANIZ ATION [facility]/26/2022 [facility] DATE CREATED AUTHOR AUTHOR'S ORGANIZ ATION 08/02/2022 [facility] DATE CREATED AUTHOR AUTHOR'S ORGANIZ ATION 11/17/2023 [facility] DATE CREATED AUTHOR AUTHOR'S ORGANIZ ATION 12/03/2023 [facility] DATE CREATED AUTHOR AUTHOR'S ORGANIZ ATION 12/06/2023 [facility] Ordered Prescriptions (unrec ognized section and content) Prescription Sig Dispensed Refills Start Date End Da te lamoTRIgine (LAMICTAL) 25 MG tablet Take 2 tablets by mouth daily 30 tablet 3 10/21/2021 Care Teams (unrecognized sec tion and content) Real Estate Development Manager Relationship Specialty Start Date End Date Angélica Arthur, STEEL LAYOUT WORKER - PSYCHIATRIC MENTAL HEALTH NURSE [address] [place] [address] PCP - General Nurse Practitioner 12/24/20 Real Estate Development Manager Relationship Specialty Start Date End Date Abdifatah Brady (Historical) PCP - General 05/21/13 Real Estate Development Manager Relationship Specialty Start Date End Date Abdifatah Brady (Historical) PCP - General 05/21/13 Real Estate Development Manager Relationship Specialty Start Date End Date Abdifatah Brady (Historical) PCP - General 05/21/13 Real Estate Development Manager Relationship Specialty Start Date End Date Abdifatah Brady (Historical) PCP - General 05/21/13 Real Estate Development Manager Relationship Specialty Start Date End Date Abdifatah Brady (Historical) PCP - General 05/21/13 Real Estate Development Manager Relationship Specialty Start Date End Date Abdifatah Brady (Historical) PCP - General 05/21/13 Real Estate Development Manager Relationship Specialty Start Date End Date Hoy, Abdifatah M (Historical) PCP - General 05/21/13 Real Estate Development Manager Relationship Specialty Start Date End Date Hoy, Abdifatah M (Historical) PCP - General 05/21/13 Real Estate Development Manager Relationship Specialty Start Date End Date Hoy, Abdifatah M (Historical) PCP - General 05/21/13 Real Estate Development Manager Relationship Specialty Start Date End Date Hoy, Abdifatah M (Historical) PCP - General 05/21/13 Real Estate Development Manager Relationship Specialty Start Date End Date Hoy, Abdifatah M (Historical) PCP - General 05/21/13 Real Estate Development Manager Relationship Specialty Start Date End Date Hoy, Abdifatah M (Historical) PCP - General 05/21/13 Real Estate Development Manager Relationship Specialty Start Date End Date Hoy, Abdifatah M (Historical) PCP - General 05/21/13 Real Estate Development Manager Relationship Specialty Start Date End Date Hoy, Abdifatah M (Historical) PCP - General 05/21/13 Real Estate Development Manager Relationship Specialty Start Date End Date Hoy, Abdifatah M (Historical) PCP - General 05/21/13 Real Estate Development Manager Relationship Specialty Start Date End Date Hoy, Abdifatah M (Historical) PCP - General 05/21/13 Real Estate Development Manager Relationship Specialty Start Date End Date Hoy, Abdifatah M (Historical) PCP - General 05/21/13 Real Estate Development Manager Relationship Specialty Start Date End Date Hoy, Abdifatah M (Historical) PCP - General 05/21/13 Real Estate Development Manager Relationship Specialty Start Date End Date Hoy, Abdifatah M (Historical) PCP - General 05/21/13 Real Estate Development Manager Relationship Specialty Start Date End Date Hoy, Abdifatah M (Historical) PCP - General 05/21/13 Real Estate Development Manager Relationship Specialty Start Date End Date Hoy, Abdifatah M (Historical) PCP - General 05/21/13 Real Estate Development Manager Relationship Specialty Start Date End Date Hoy, Abdifatah M (Historical) PCP - General 05/21/13 Real Estate Development Manager Relationship Specialty Start Date End Date Hoy, Abdifatah M (Historical) PCP - General 05/21/13 Real Estate Development Manager Relationship Specialty Start Date End Date Hoy, Abdifatah M (Historical) PCP - General 05/21/13 Real Estate Development Manager Relationship Specialty Start Date End Date Hoy, Abdifatah M (Historical) PCP - General 05/21/13 Real Estate Development Manager Relationship Specialty Start Date End Date Hoy, Abdifatah M (Historical) PCP - General 05/21/13 Real Estate Development Manager Relationship Specialty Start Date End Date Abdifatah Brady (Historical) PCP - General 05/21/13 Real Estate Development Manager Relationship Specialty Start Date End Date Abdifatah Brady (Historical) PCP - General 05/21/13 Real Estate Development Manager Relationship Specialty Start Date End Date Abdifatah Brady (Historical) PCP - General 05/21/13 Real Estate Development Manager Relationship Specialty Start Date End Date Abdifatah Brady (Historical) PCP - General 05/21/13 Real Estate Development Manager Relationship Specialty Start Date End Date Abdifatah Brady (Historical) PCP - General 05/21/13 Real Estate Development Manager Relationship Specialty Start Date End Date Abdifatah Brady (Historical) PCP - General 05/21/13 Real Estate Development Manager Relationship Specialty Start Date End Date Abdifatah Brady (Historical) PCP - General 05/21/13 Real Estate Development Manager Relationship Specialty Start Date End Date Abdifatah Brady (Historical) PCP - General 05/21/13 Inactive Administered [...] at 0819, Until Meg 04/13/23 at 1315, Nausea/Vomiting - First Line - [...] BE BASED ON THE PRIMARY CLINICAL RECORDS. [employer] [facility] provides no warranty or guarantee of the accuracy or completeness of information in this document.
[2023-12-11 14:31] LABS: Influenza Virus A Antigen Negative; Influenza Virus B Antigen Negative
[2023-12-11 14:32] LABS: Internal Control Within Normal Limits; SARS-CoV-2 Ag POSITIVE (NEGATIVE)
--- NOTE | 2023-12-11 14:32 | ED_ITS ---
HPI HPI - General Adult General Chief complaint: Upper Respiratory Infection Stated complaint: COUGH Time Seen by Provider: 12/11/23 14:26 Source: patient Mode of arrival: walk-in History of Present Illness HPI narrative: Patient is a 28-year-old female who is presenting to the ER today with chief complaint of cough and upper respiratory symptoms. Patient has just finished 2 different antibiotics and 2 different courses of steroids prescribed by PCP and urgent care. Patient is here because she continues to have coughing, sinus congestion. Patient is just finished a long course of Medrol Dosepak and doxyc ycline. Patient has no fever or chills. Patient PCP is Dr. Blair. Patient Has no abdominal pain, nausea, vomiting patient's coughing during the day and at nighttime.. All systems are negative except as noted/marked. All systems reviewed and otherwise negative. Nurses note and vital signs reviewed and patient is not hypoxic. General: The patient appears well and in no apparent distress. Patient is resting comfortably on cart. Patient is not toxic, lethargic, or listless Skin: Warm, dry, no pallor noted. There is no rash noted. No petechiae, purpura. Head: Normocephalic, atraumatic; patient has mild tenderness to palpation to bilateral frontal maxillary sinus. Eye: Normal conjunctiva, no drainage, EOMI. PERRL Ears, Nose, Mouth, and Throat: oral mucosa is moist. Patient has clear drainage with cobblestoning noted to the posterior pharynx. No bilateral posterior tonsillar hypertrophic, no petechiae, exudate, no other intraoral pathology. Mucous membranes moist. Nares patent. Mouth without vesicles. Cardiovascular: Regular Rate and Rhythm, no murmur, gallop, rub Respiratory: Patient is in no distress, no accessory muscle use, lungs are clear to auscultation, no wheezing, rales or rhonchi Back: non-tender, GI: Obese, no tenderness to palpation, no masses appreciated. No rebound, guarding, or rigidity noted. No distention Musculoskeletal: Patient has full range of motion of all of the extremities, no motor, sensory, or focal neurological deficits Neurological: A&O x4, normal speech Psychiatric: Cooperative Related Data Home Medications ?Medication ?Instructions ?Recorded ?Confirmed baclofen 10 mg tablet 10 mg PO TID spasms 07/20/22 08/16/23 diazepam 10 mg tablet 5 mg PO QID PRN seizures 07/20/22 08/16/23 epinephrine 0.3 mg/0.3 mL 0.3 mg IM Q10M PRN anaphylaxis 07/20/22 08/16/23 injection, auto-injector diphenhydramine HCl 25 mg capsule 75 mg PO Q6H PRN migraine headache 01/26/23 08/16/23 (Benadryl) trazodone 300 mg tablet 300 mg PO .qhs 03/03/23 08/16/23 erenumab-aooe 70 mg/mL 70 mg subcut ONCE PRN migraine 04/27/23 08/16/23 subcutaneous auto-injector headache (Aimovig Autoinjector) lithium carbonate 300 mg tablet 600 mg PO Q12H 04/27/23 08/16/23 albuterol sulfate 90 mcg/actuation 2 puff inhalation Q4H PRN 08/16/23 08/16/23 aerosol inhaler shortness of breath or wheezing estradiol 1 mg tablet 1 mg PO QAM 08/16/23 08/16/23 lamotrigine 150 mg tablet 150 mg PO BID 08/16/23 08/16/23 magnesium oxide 400 mg (241.3 mg 400 mg PO .qhs 08/16/23 08/16/23 magnesium) tablet promethazine 12.5 mg tablet 12.5 mg PO Q6H PRN nausea and 08/16/23 08/16/23 vomiting vilazodone 40 mg tablet 40 mg PO DAILY 08/16/23 08/16/23 zolmitriptan 5 mg nasal spray 1 spray intranasal Q2H PRN headache 08/16/23 08/16/23 Previous Rx's ?Medication ?Instructions ?Recorded ketorolac 10 mg tablet 10 mg PO Q8H PRN pain 2 days #6 05/13/23 tabs Allergies Allergy/AdvReac Type Severity Reaction Status Date / Time dihydroergotamine Allergy Unknown Verified 08/16/23 08:30 vortioxetine Allergy Unknown Verified 08/16/23 08:30 buspirone Allergy Hives Verified 08/16/23 08:30 carbamazepine Allergy Unknown Verified 08/16/23 08:30 levetiracetam (From Keppra) Allergy ITCHING Verified 08/16/23 08:30 azithromycin (From Zithromax) AdvReac Intermediate Hives Verified 08/16/23 08:30 bee venom protein (honey bee) AdvReac Intermediate Hives Verified 08/16/23 08:30 metoclopramide (From Reglan) AdvReac Intermediate panic Verified 08/16/23 08:30 adhesive tape AdvReac Mild Rash Verified 08/16/23 08:30 cephalexin (From Keflex) AdvReac Mild Hives Verified 08/16/23 08:30 dextromethorphan (From AdvReac Mild Unknown Verified 08/16/23 08:30 [place] DM) pyrilamine (From [place] DM) AdvReac Mild Unknown Verified 08/16/23 08:30 propranolol AdvReac Hives Verified 08/16/23 08:30 Opioid HPI Opioid Management Most Recent Opioid Data: Last Pain Scale 6 11/26/23 11:46 11/26/23 Last ORT Total Score 0 08/16/23 14:51 08/16/23 Last ORT Risk Category Low Risk 08/16/23 14:51 08/16/23 Ur Phencyclidine Scrn Negative (NEGATIVE) 08/16/23 15:15 0608/13 PFSH PFS Medical History (Updated 12/11/23 @ 15:04 by Kings Wallace MD) Chronic pain disorder ?G89.4 - Chronic pain syndrome (ICD-10) Migraine ?G43.909 - Migraine, unspecified, not intractable, without status migrainosus (ICD-10) Seizure disorder ?G40.909 - Epilepsy, unspecified, not intractable, without status epilepticus (ICD-10) Bipolar disorder ?F31.9 - Bipolar disorder, unspecified (ICD-10) Pelvic pain ?R10.2 - Pelvic and perineal pain (ICD-10) Bilateral occipital neuralgia ?M54.81 - Occipital neuralgia (ICD-10) Combative behavior ?R46.89 - Other symptoms and signs involving appearance and behavior (ICD-10) PCOS (polycystic ovarian syndrome) ?E28.2 - Polycystic ovarian syndrome (ICD-10) Mitral valve prolapse ?I34.1 - Nonrheumatic mitral (valve) prolapse (ICD-10) GERD (gastroesophageal reflux disease) ?K21.9 - Gastro-esophageal reflux disease without esophagitis (ICD-10) Depression ?F32.A - Depression, unspecified (ICD-10) Blood in urine ?R31.9 - Hematuria, unspecified (ICD-10) Acne ?L70.9 - Acne, unspecified (ICD-10) Dyspareunia Brain mass ?G93.89 - Other specified disorders of brain (ICD-10) Kidney stones ?N20.0 - Calculus of kidney (ICD-10) COVID-19 ?U07.1 - COVID-19 (ICD-10) Bronchitis ?J40 - Bronchitis, not specified as acute or chronic (ICD-10) Asthma ?J45.909 - Unspecified asthma, uncomplicated (ICD-10) Stress incontinence ?N39.3 - Stress incontinence (female) (male) (ICD-10) Dysuria ?R30.0 - Dysuria (ICD-10) Anxiety ?F41.9 - Anxiety disorder, unspecified (ICD-10) Surgical History H/O laparoscopy (07/21/22) ?Z98.890 - Other specified postprocedural states (ICD-10) S/P RAVI-BSO ?Z90.710 - Acquired absence of both cervix and uterus (ICD-10) ?Z90.722 - Acquired absence of ovaries, bilateral (ICD-10) ?Z90.79 - Acquired absence of other genital organ(s) (ICD-10) Hx laparoscopic cholecystectomy ?Z90.49 - Acquired absence of other specified parts of digestive tract (ICD- 10) H/O: ?Z98.891 - History of uterine scar from previous surgery (ICD-10) History of appendectomy ?Z90.49 - Acquired absence of other specified parts of digestive tract (ICD- 10) Family History Other Acid reflux Acute renal disease Afib Chromosomal disorder Delayed developmental milestones Diabetes Family history of hypertension High cholesterol Neuro-irritability due to autonomic dysfunction 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 level of school completed/degree received: Associate degree: occupational, technical, vocational program Little interest or pleasure in doing things: not at all Feeling down, depressed, or hopeless: not at all Gender Identity: female Exam Constitutional Vital Signs, click to edit/add: Last Vital Signs Temp 98.1 F 12/11/23 13:59 Pulse 79 12/11/23 13:59 Resp 18 12/11/23 13:59 BP 136/61 12/11/23 13:59 Pulse Ox 98 12/11/23 14:10 O2 Del Method Room Air 12/11/23 14:10 Course Vital Signs Vital signs: Vital Signs Temperature 98.1 F 12/11/23 13:59 Pulse Rate 79 12/11/23 13:59 Respiratory Rate 18 12/11/23 13:59 Blood Pressure 136/61 12/11/23 13:59 Pulse Oximetry 98 12/11/23 13:59 Oxygen Delivery Method Room Air 12/11/23 13:59 Temperature 98.1 F 12/11/23 13:59 Pulse Rate 79 12/11/23 13:59 Respiratory Rate 18 12/11/23 13:59 Blood Pressure 136/61 12/11/23 13:59 Pulse Oximetry 98 12/11/23 14:10 Oxygen Delivery Method Room Air 12/11/23 14:10 Medical Decision Making MDM Narrative Medical decision making narrative: Patient COVID was positive, influenza negative, chest x-ray negative. A copy of the chest x-ray was given to the patient. Patient states that she is doing Claritin-D aswo-bbm-aecommw no other products. Education was done at bedside in the discharge paperwork on multiple [id number] products that can be taken. Patient increase fluids. Patient will follow-up with PCP. Patient was educated that she does not need an third round of antibiotics and steroids at this time. Lab Data Labs: Lab Results 12/11/23 Range/Units 14:07 Influenza Type A Ag Negative Influenza Type B Ag Negative SARS-CoV-2 Ag (CV2AG) Positive A (NEGATIVE) Discharge Plan Discharge Chief Complaint: Upper Respiratory Infection Clinical Impression: COVID Patient Disposition: Home, Self-Care Time of Disposition Decision: 15:03 Condition: Fair Prescriptions / Home Meds: No Action baclofen 10 mg tablet 10 mg PO TID diazepam 10 mg tablet 5 mg PO QID PRN (Reason: seizures) epinephrine 0.3 mg/0.3 mL auto-injector 0.3 mg IM Q10M PRN (Reason: anaphylaxis) Rx Instructions: for 2 doses trazodone 300 mg tablet 300 mg PO .qhs Aimovig Autoinjector 70 mg/mL auto-injector 70 mg SUBCUT ONCE PRN (Reason: migraine headache) lithium carbonate 300 mg tablet 600 mg PO Q12H ketorolac 10 mg tablet 10 mg PO Q8H PRN (Reason: pain) 2 Days Qty: 6 0RF albuterol sulfate 90 mcg/actuation HFA aerosol inhaler 2 puff INHALATION Q4H PRN (Reason: shortness of breath or wheezing) estradiol 1 mg tablet 1 mg PO QAM lamotrigine 150 mg tablet 150 mg PO BID magnesium oxide 400 mg (241.3 mg magnesium) tablet 400 mg PO .qhs promethazine 12.5 mg tablet 12.5 mg PO Q6H PRN (Reason: nausea and vomiting) vilazodone 40 mg tablet 40 mg PO DAILY zolmitriptan 5 mg spray,non-aerosol 1 spray INTRANASAL Q2H PRN (Reason: headache) Rx Instructions: May repeat once if needed after =2 hours diphenhydramine HCl [Benadryl] 25 mg capsule 75 mg PO Q6H PRN (Reason: migraine headache) Print Language: Bhutanese Instructions: How To Wash Your Hands (ED), Face Coverings (Masks) and COVID-19 (ED), How to Recover from COVID-19 at Home (ED) Additional Instructions: Increase fluids at home, Gatorade, Powerade, or water. Alternate using DayQuil, NyQuil, and Flonase. Add Mucinex as well as needed. Alternate Tylenol and Motrin every 4 hours to help with fever control, body aches or joint pain. Use ccnz-cqb-jarxcol vitamin C, vitamin D3, and zinc to help fight infection and help with her immune system. Referrals: Lamont Blair MD [Primary Care Provider] - 1 week
== END 2023-12-11 15:10 | disposition home or self-care (01) ==
PROVIDERS: Emergency Provider Emergency Medicine; PCP Family Medicine
DX: U07.1 COVID-19 (principal); E66.9 Obesity, unspecified; Z68.42 Body mass index [BMI] 45.0-49.9, adult
CPT/HCPCS: 71046; 87804; 87811; 99284

== ENCOUNTER 2024-01-15 14:13 | Emergency (ER) | payer OTHER, SELFPAY ==
[2024-01-15 14:28] VITALS: BP 150/90; PULSE 98; TEMP 36.5; O2SAT 97; BMI 53.3
[2024-01-15 15:14] VITALS: BP 128/97; PULSE 96; O2SAT 95
--- NOTE | 2024-01-15 16:00 | ED.GENADUL1 ---
HPI HPI - General Adult General Chief complaint: Headache Stated complaint: HEADACHE/NAUSEA/VOMITTING Time Seen by Provider: 01/15/24 15:13 Source: patient Mode of arrival: walk-in Limitations: no limitations History of Present Illness HPI narrative: Patient is a 28-year-old female who is presenting to the ER today with chief complaint of acute on chronic headache. Patient was at the [facility] on Monday and Monday for infusions of a medication to help with her chronic headaches/migraines. Patient has a neurologist that helps manage her headaches at the [facility]. Patient went home Monday after her infusion, and was feeling okay. Patient says that she spoke to the neurologist, and neurologist stated that rebound headaches do occur after the infusion at times and recommended coming to the ER for evaluation and this is most likely rebound headache from the medication that she received on Monday and Monday. Patient has intermittent vertigo and lightheaded/dizziness as well. Patient has no fever or chills. No chest pain or shortness of breath. Patient been having multiple episodes of nausea vomiting today and yesterday as well. All systems are negative except as noted/marked. All systems reviewed and otherwise negative. Nurses note and vital signs reviewed and patient is not hypoxic. General: The patient appears mild distress secondary to discomfort, not feeling well. Patient is resting uncomfortably on cart. Patient is not toxic, lethargic, or listless Skin: Warm, dry, no pallor noted. There is no rash noted. No petechiae, purpura. Head: Normocephalic, atraumatic; no meningeal signs or symptoms. Patient has mild tenderness to palpation to bilateral paracervical soft tissue, no nuchal rigidity. Eye: Normal conjunctiva, no drainage, EOMI. PERRL. Pupils are 4/2, equal, bilateral. Ears, Nose, Mouth, and Throat: oral mucosa is moist. Nares patent. Mouth without vesicles. Cardiovascular: Regular Rate and Rhythm, no murmur, gallop, rub Respiratory: Patient is in no distress, no accessory muscle use, lungs are clear to auscultation, no wheezing, rales or rhonchi Back: non-tender, no CVA tenderness bilaterally to percussion. No CT LS midline pain GI: Obese, no midepigastric tenderness palpation, no peritoneal signs, otherwise no tenderness to palpation, no masses appreciated. No rebound, guarding, or rigidity noted. No distention Musculoskeletal: Patient has full range of motion of all of the extremities, no motor, sensory, or focal neurological deficits Neurological: A&O x4, normal speech Psychiatric: Cooperative Related Data Home Medications ?Medication ?Instructions ?Recorded ?Confirmed baclofen 10 mg tablet 10 mg PO TID spasms 07/20/22 08/16/23 diazepam 10 mg tablet 5 mg PO QID PRN seizures 07/20/22 08/16/23 epinephrine 0.3 mg/0.3 mL 0.3 mg IM Q10M PRN anaphylaxis 07/20/22 08/16/23 injection, auto-injector diphenhydramine HCl 25 mg capsule 75 mg PO Q6H PRN migraine headache 01/26/23 08/16/23 (Benadryl) trazodone 300 mg tablet 300 mg PO .qhs 03/03/23 08/16/23 erenumab-aooe 70 mg/mL 70 mg subcut ONCE PRN migraine 04/27/23 08/16/23 subcutaneous auto-injector headache (Aimovig Autoinjector) lithium carbonate 300 mg tablet 600 mg PO Q12H 04/27/23 08/16/23 albuterol sulfate 90 mcg/actuation 2 puff inhalation Q4H PRN 08/16/23 08/16/23 aerosol inhaler shortness of breath or wheezing estradiol 1 mg tablet 1 mg PO QAM 08/16/23 08/16/23 lamotrigine 150 mg tablet 150 mg PO BID 08/16/23 08/16/23 magnesium oxide 400 mg (241.3 mg 400 mg PO .qhs 08/16/23 08/16/23 magnesium) tablet promethazine 12.5 mg tablet 12.5 mg PO Q6H PRN nausea and 08/16/23 08/16/23 vomiting vilazodone 40 mg tablet 40 mg PO DAILY 08/16/23 08/16/23 zolmitriptan 5 mg nasal spray 1 spray intranasal Q2H PRN headache 08/16/23 08/16/23 Previous Rx's ?Medication ?Instructions ?Recorded ketorolac 10 mg tablet 10 mg PO Q8H PRN pain 2 days #6 05/13/23 tabs promethazine 25 mg rectal 25 mg DC Q6H PRN nausea and 01/15/24 suppository vomiting #6 ea Allergies Allergy/AdvReac Type Severity Reaction Status Date / Time dihydroergotamine Allergy Unknown Hives Verified 01/15/24 14:27 vortioxetine Allergy Unknown Hives Verified 01/15/24 14:27 buspirone Allergy Hives Verified 01/15/24 14:27 carbamazepine Allergy Unknown Verified 01/15/24 14:27 levetiracetam (From Keppra) Allergy ITCHING Verified 01/15/24 14:27 azithromycin (From Zithromax) AdvReac Intermediate Hives Verified 01/15/24 14:27 bee venom protein (honey bee) AdvReac Intermediate Hives Verified 01/15/24 14:27 metoclopramide (From Reglan) AdvReac Intermediate panic Verified 01/15/24 14:27 adhesive tape AdvReac Mild Rash Verified 01/15/24 14:27 cephalexin (From Keflex) AdvReac Mild Hives Verified 01/15/24 14:27 dextromethorphan (From AdvReac Mild Unknown Verified 01/15/24 14:27 [place] DM) pyrilamine (From [place] DM) AdvReac Mild Unknown Verified 01/15/24 14:27 prochlorperazine (From AdvReac Anxiety Verified 01/15/24 14:27 Compazine) propranolol AdvReac Hives Verified 01/15/24 14:27 Opioid HPI Opioid Management Most Recent Opioid Data: Last Pain Scale 6 11/26/23 11:46 11/26/23 Last ORT Total Score 0 08/16/23 14:51 08/16/23 Last ORT Risk Category Low Risk 08/16/23 14:51 08/16/23 Ur Phencyclidine Scrn Negative (NEGATIVE) 08/16/23 15:15 08/16/23 PFSH PFSH Medical History (Updated 01/15/24 @ 18:07 by Kings Wallace MD) Chronic pain disorder ?G89.4 - Chronic pain syndrome (ICD-10) Migraine ?G43.909 - Migraine, unspecified, not intractable, without status migrainosus (ICD-10) Seizure disorder ?G40.909 - Epilepsy, unspecified, not intractable, without status epilepticus (ICD-10) Bipolar disorder ?F31.9 - Bipolar disorder, unspecified (ICD-10) Pelvic pain ?R10.2 - Pelvic and perineal pain (ICD-10) Bilateral occipital neuralgia ?M54.81 - Occipital neuralgia (ICD-10) Combative behavior ?R46.89 - Other symptoms and signs involving appearance and behavior (ICD-10) PCOS (polycystic ovarian syndrome) ?E28.2 - Polycystic ovarian syndrome (ICD-10) Mitral valve prolapse ?I34.1 - Nonrheumatic mitral (valve) prolapse (ICD-10) GERD (gastroesophageal reflux disease) ?K21.9 - Gastro-esophageal reflux disease without esophagitis (ICD-10) Depression ?F32.A - Depression, unspecified (ICD-10) Blood in urine ?R31.9 - Hematuria, unspecified (ICD-10) Acne ?L70.9 - Acne, unspecified (ICD-10) Dyspareunia Brain mass ?G93.89 - Other specified disorders of brain (ICD-10) Kidney stones ?N20.0 - Calculus of kidney (ICD-10) COVID-19 ?U07.1 - COVID-19 (ICD-10) Bronchitis ?J40 - Bronchitis, not specified as acute or chronic (ICD-10) Asthma ?J45.909 - Unspecified asthma, uncomplicated (ICD-10) Stress incontinence ?N39.3 - Stress incontinence (female) (male) (ICD-10) Dysuria ?R30.0 - Dysuria (ICD-10) Anxiety ?F41.9 - Anxiety disorder, unspecified (ICD-10) Surgical History H/O laparoscopy (07/21/22) ?Z98.890 - Other specified postprocedural states (ICD-10) S/P RAVI-BSO ?Z90.710 - Acquired absence of both cervix and uterus (ICD-10) ?Z90.722 - Acquired absence of ovaries, bilateral (ICD-10) ?Z90.79 - Acquired absence of other genital organ(s) (ICD-10) Hx laparoscopic cholecystectomy ?Z90.49 - Acquired absence of other specified parts of digestive tract (ICD-10) H/O: ?Z98.891 - History of uterine scar from previous surgery (ICD-10) History of appendectomy ?Z90.49 - Acquired absence of other specified parts of digestive tract (ICD-10) Family History Other Acid reflux Acute renal disease Afib Chromosomal disorder Delayed developmental milestones Diabetes Family history of hypertension High cholesterol Neuro-irritability due to autonomic dysfunction 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 level of school completed/degree received: Associate degree: occupational, technical, vocational program Little interest or pleasure in doing things: not at all Feeling down, depressed, or hopeless: not at all Gender Identity: female Exam Constitutional Vital Signs, click to edit/add: Last Vital Signs Temp 97.7 F 01/15/24 14:28 Pulse 96 H 01/15/24 15:14 Resp 20 01/15/24 15:14 BP 128/97 H 01/15/24 15:14 Pulse Ox 95 01/15/24 15:14 O2 Del Method Room Air 01/15/24 15:14 Course Vital Signs Vital signs: Vital Signs Temperature 97.7 F 01/15/24 14:28 Pulse Rate 98 H 01/15/24 14:28 Respiratory Rate 20 01/15/24 14:28 Blood Pressure 150/90 H 01/15/24 14:28 Pulse Oximetry 97 01/15/24 14:28 Oxygen Delivery Method Room Air 01/15/24 14:28 Temperature 97.7 F 01/15/24 14:28 Pulse Rate 96 H 01/15/24 15:14 Respiratory Rate 20 01/15/24 15:14 Blood Pressure 128/97 H 01/15/24 15:14 Pulse Oximetry 95 01/15/24 15:14 Oxygen Delivery Method Room Air 01/15/24 15:14 Medical Decision Making MDM Narrative Medical decision making narrative: 1600 Patient has multiple drug allergies. Patient states that her neurologist told her to come to the ER today because she could have a rebound headache from the infusions that she had at the [facility] on Monday and Monday. Patient was given Decadron, Benadryl, Compazine, Zofran, also ice. Patient also has vertigo, she was given a Antivert tablet as well. 1800 Patient's headache has almost completely resolved. Nausea has improved as well. Patient was sent home with a prescription for Phenergan suppositories to use with her tablets if needed if she cannot keep hold onto her Phenergan tablets with nausea and vomiting. Patient is to follow-up with her neurology specialist at [facility]. Patient will follow-up PCP. No question at discharge. Discharge Plan Discharge Chief Complaint: Headache Clinical Impression: Headache, Nausea & vomiting Patient Disposition: Home, Self-Care Time of Disposition Decision: 18:07 Condition: Fair Prescriptions / Home Meds: New promethazine 25 mg suppository 25 mg DC Q6H PRN (Reason: nausea and vomiting) Qty: 6 0RF No Action baclofen 10 mg tablet 10 mg PO TID diazepam 10 mg tablet 5 mg PO QID PRN (Reason: seizures) epinephrine 0.3 mg/0.3 mL auto-injector 0.3 mg IM Q10M PRN (Reason: anaphylaxis) Rx Instructions: for 2 doses trazodone 300 mg tablet 300 mg PO .qhs Aimovig Autoinjector 70 mg/mL auto-injector 70 mg SUBCUT ONCE PRN (Reason: migraine headache) lithium carbonate 300 mg tablet 600 mg PO Q12H ketorolac 10 mg tablet 10 mg PO Q8H PRN (Reason: pain) 2 Days Qty: 6 0RF albuterol sulfate 90 mcg/actuation HFA aerosol inhaler 2 puff INHALATION Q4H PRN (Reason: shortness of breath or wheezing) estradiol 1 mg tablet 1 mg PO QAM lamotrigine 150 mg tablet 150 mg PO BID magnesium oxide 400 mg (241.3 mg magnesium) tablet 400 mg PO .qhs promethazine 12.5 mg tablet 12.5 mg PO Q6H PRN (Reason: nausea and vomiting) vilazodone 40 mg tablet 40 mg PO DAILY zolmitriptan 5 mg spray,non-aerosol 1 spray INTRANASAL Q2H PRN (Reason: headache) Rx Instructions: May repeat once if needed after =2 hours diphenhydramine HCl [Benadryl] 25 mg capsule 75 mg PO Q6H PRN (Reason: migraine headache) Print Language: Eritrean Instructions: Cervical Strain (ED), Acute Nausea and Vomiting (ED), General Headache (ED) Additional Instructions: Continue medications as prescribed. Increase fluids. Use ice and cervical stretching 3-4 times a day. Follow-up with PCP and neurologist at [facility]. Referrals: Lamont Blair MD [Primary Care Provider] - 1 week
[2024-01-15] MEDS: DIPHENHYDRAMINE HCL 50 MG/ML VIAL 25 MG IV (16:20)
[2024-01-15] MEDS: ONDANSETRON PF 4 MG/2 ML VIAL IV (16:21)
[2024-01-15] MEDS: MECLIZINE HCL 12.5 MG TABLET 25 MG PO (16:23)
[2024-01-15] MEDS: KETOROLAC TROMETHAMINE 30 MG/ML VIAL 15 MG IVP (16:24)
[2024-01-15] MEDS: DEXAMETHASONE SOD PHOS 10 MG/ML VIAL IV (16:25)
[2024-01-15] MEDS: PROCHLORPERAZINE 10 MG/2 ML VIAL IV (16:26)
== END 2024-01-15 18:20 | disposition home or self-care (01) ==
PROVIDERS: Emergency Provider Emergency Medicine; PCP Family Medicine
DX: R51.9 Headache, unspecified (principal); R11.2 Nausea with vomiting, unspecified; Z90.710 Acquired absence of both cervix and uterus; Z90.49 Acquired absence of other specified parts of digestive tract
CPT/HCPCS: 96374; 96375; 99284; J0780; J1100; J1200; J1885; J2405

== ENCOUNTER 2024-01-31 10:16 | Emergency (ER) | payer OTHER, SELFPAY ==
[2024-01-31 10:30] VITALS: BP 108/80; PULSE 87; O2SAT 95; BMI 52.9
[2024-01-31 11:44] LABS: Basophils Percent Auto 0.3 % (0.2-2.0); Eosinophils Absolute Auto 0.3 10^3/uL (0.0-0.7); Eosinophils Percent Auto 4.1 % (0.9-7.0); Hematocrit 39.3 % (36.0-48.0); Hemoglobin 13.6 g/dL (12.0-16.0); Immature Granulocytes Abs Auto 0.03 10^3/uL (0.00-0.03); Immature Granulocytes Pct Auto 0.4 % (0.0-0.5); Lymphocytes Absolute Auto 1.6 10^3/uL (1.2-3.8); Lymphocytes Percent Auto 21.4 % (20.5-60.0); Mean Corpuscular HGB Conc 34.6 g/dL (29.9-35.2); Mean Corpuscular Hemoglobin 29.6 pg (26.7-34.0); Mean Corpuscular Volume 85.6 fL (81.0-99.0); Monocytes Absolute Auto 0.4 10^3/uL (0.3-0.8); Monocytes Percent Auto 4.9 % (1.7-12.0); Neutrophils Absolute Auto 5.2 10^3/uL (1.4-6.5); Neutrophils Percent Auto 68.9 % (43.0-75.0); Platelet Count 247 10^3/uL (150-450); Red Blood Count 4.59 10^6/uL (4.20-5.40); Red Cell Distribution Width 12.8 % (11.0-15.0); White Blood Count 7.5 10^3/uL (4.0-11.0)
--- NOTE | 2024-01-31 11:49 | ED_ITS ---
HPI - Nausea/Vomiting/Diarrhea General Chief complaint: Nausea/Vomiting/Diarrhea Stated complaint: NAUSEA Time Seen by Provider: 01/31/24 10:17 Source: patient Mode of arrival: walk-in Limitations: no limitations History of Present Illness HPI Narrative: Patient sent complaining of nausea vomiting. She reports that she has not been able to keep anything down since Monday. She does have a history of migraines and gets infusions and she is a difficult IV stick. She states that she feels like she needs fluids and nausea medication to the IV. No fever vital signs are stable. She is not tachycardic or hypotensive. She ambulated back to the ER room in no acute distress. She states she does have abdominal cramping and pain. Related Data Home Medications ?Medication ?Instructions ?Recorded ?Confirmed baclofen 10 mg tablet 10 mg PO TID spasms 07/20/22 08/16/23 diazepam 10 mg tablet 5 mg PO QID PRN seizures 07/20/22 08/16/23 epinephrine 0.3 mg/0.3 mL 0.3 mg IM Q10M PRN anaphylaxis 07/20/22 08/16/23 injection, auto-injector diphenhydramine HCl 25 mg capsule 75 mg PO Q6H PRN migraine headache 01/26/23 08/16/23 (Benadryl) trazodone 300 mg tablet 300 mg PO .qhs 03/03/23 08/16/23 erenumab-aooe 70 mg/mL 70 mg subcut ONCE PRN migraine 04/27/23 08/16/23 subcutaneous auto-injector headache (Aimovig Autoinjector) lithium carbonate 300 mg tablet 600 mg PO Q12H 04/27/23 08/16/23 albuterol sulfate 90 mcg/actuation 2 puff inhalation Q4H PRN 08/16/23 08/16/23 aerosol inhaler shortness of breath or wheezing estradiol 1 mg tablet 1 mg PO QAM 08/16/23 08/16/23 lamotrigine 150 mg tablet 150 mg PO BID 08/16/23 08/16/23 magnesium oxide 400 mg (241.3 mg 400 mg PO .qhs 08/16/23 08/16/23 magnesium) tablet promethazine 12.5 mg tablet 12.5 mg PO Q6H PRN nausea and 08/16/23 08/16/23 vomiting vilazodone 40 mg tablet 40 mg PO DAILY 08/16/23 08/16/23 zolmitriptan 5 mg nasal spray 1 spray intranasal Q2H PRN headache 08/16/23 08/16/23 Previous Rx's ?Medication ?Instructions ?Recorded ketorolac 10 mg tablet 10 mg PO Q8H PRN pain 2 days #6 05/13/23 tabs promethazine 25 mg rectal 25 mg [place] Q6H PRN nausea and 01/15/24 suppository vomiting #6 ea Allergies Allergy/AdvReac Type Severity Reaction Status Date / Time dihydroergotamine Allergy Unknown Hives Verified 01/31/24 10:29 vortioxetine Allergy Unknown Hives Verified 01/31/24 10:29 buspirone Allergy Hives Verified 01/31/24 10:29 carbamazepine Allergy Unknown Verified 01/31/24 10:29 levetiracetam (From Keppra) Allergy ITCHING Verified 01/31/24 10:29 azithromycin (From Zithromax) AdvReac Intermediate Hives Verified 01/31/24 10:29 bee venom protein (honey bee) AdvReac Intermediate Hives Verified 01/31/24 10:29 metoclopramide (From Reglan) AdvReac Intermediate panic Verified 01/31/24 10:29 adhesive tape AdvReac Mild Rash Verified 01/31/24 10:29 cephalexin (From Keflex) AdvReac Mild Hives Verified 01/31/24 10:29 dextromethorphan (From AdvReac Mild Unknown Verified 01/31/24 10:29 Avella DM) pyrilamine (From Avella DM) AdvReac Mild Unknown Verified 01/31/24 10:29 prochlorperazine (From AdvReac Anxiety Verified 01/31/24 10:29 Compazine) propranolol AdvReac Hives Verified 01/31/24 10:29 Review of Systems ROS Status of ROS 10 or more systems reviewed and unremark able except as noted in history and below [facility] Medical History (Updated 01/31/24 @ 13:14 by Vicki Thompson DO) Chronic pain disorder ?G89.4 - Chronic pain syndrome (ICD-10) Migraine ?G43.909 - Migraine, unspecified, not intractable, without status migrainosus (ICD-10) Seizure disorder ?G40.909 - Epilepsy, unspecified, not intractable, without status epilepticus (ICD-10) Bipolar disorder ?F31.9 - Bipolar disorder, unspecified (ICD-10) Pelvic pain ?R10.2 - Pelvic and perineal pain (ICD-10) Bilateral occipital neuralgia ?M54.81 - Occipital neuralgia (ICD-10) Combative behavior ?R46.89 - Other symptoms and signs involving appearance and behavior (ICD-10) PCOS (polycystic ovarian syndrome) ?E28.2 - Polycystic ovarian syndrome (ICD-10) Mitral valve prolapse ?I34.1 - Nonrheumatic mitral (valve) prolapse (ICD-10) GERD (gastroesophageal reflux disease) ?K21.9 - Gastro-esophageal reflux disease without esophagitis (ICD-10) Depression ?F32.A - Depression, unspecified (ICD-10) Blood in urine ?R31.9 - Hematuria, unspecified (ICD-10) Acne ?L70.9 - Acne, unspecified (ICD-10) Dyspareunia Brain mass ?G93.89 - Other specified disorders of brain (ICD-10) Kidney stones ?N20.0 - Calculus of kidney (ICD-10) COVID-19 ?U07.1 - COVID-19 (ICD-10) Bronchitis ?J40 - Bronchitis, not specified as acute or chronic (ICD-10) Asthma ?J45.909 - Unspecified asthma, uncomplicated (ICD-10) Stress incontinence ?N39.3 - Stress incontinence (female) (male) (ICD-10) Dysuria ?R30.0 - Dysuria (ICD-10) Anxiety ?F41.9 - Anxiety disorder, unspecified (ICD-10) Surgical History H/O laparoscopy (07/21/22) ?Z98.890 - Other specified postprocedural states (ICD-10) S/P RAVI-BSO ?Z90.710 - Acquired absence of both cervix and uterus (ICD-10) ?Z90.722 - Acquired absence of ovaries, bilateral (ICD-10) ?Z90.79 - Acquired absence of other genital organ(s) (ICD-10) Hx laparoscopic cholecystectomy ?Z90.49 - Acquired absence of other specified parts of digestive tract (ICD- 10) H/O: ?Z98.891 - History of uterine scar from previous surgery (ICD-10) History of appendectomy ?Z90.49 - Acquired absence of other specified parts of digestive tract (ICD- 10) Family History Other Acid reflux Acute renal disease Afib Chromosomal disorder Delayed developmental milestones Diabetes Family history of hypertension High cholesterol Neuro-irritability due to autonomic dysfunction 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 Cardiovascular: [Regular rate and rhythm, no murmur.] Respiratory: [Lungs are clear to auscultation, respirations are non-labored, breath sounds are equal.] Chest wall: [No tenderness, no deformity.] Gastrointestinal: [Soft, mild generalized tenderness, non distended, normal bowel sounds.] MSK: 5 out of 5 muscle strength x 4 extremities no calf pain or edema Lymphatics: [No lymphadenopathy.] Psychiatric: [Cooperative, appropriate mood & affect.] Neurological: [Alert and oriented to person, place, time, and situation, no focal neurological deficit observed.] Constitutional Vital Signs, click to edit/add: Last Vital Signs Pulse 88 01/31/24 13:01 Resp 18 01/31/24 13:01 BP 115/75 01/31/24 13:01 Pulse Ox 98 01/31/24 13:01 O2 Del Method Room Air 01/31/24 10:30 Course Vital Signs Vital signs: Vital Signs Pulse Rate 87 01/31/24 10:30 Respiratory Rate 14 01/31/24 10:30 Blood Pressure 108/80 01/31/24 10:30 Pulse Oximetry 95 01/31/24 10:30 Oxygen Delivery Method Room Air 01/31/24 10:30 Pulse Rate 88 01/31/24 13:01 Respiratory Rate 18 01/31/24 13:01 Blood Pressure 115/75 01/31/24 13:01 Pulse Oximetry 98 01/31/24 13:01 Oxygen Delivery Method Room Air 01/31/24 10:30 MDM - Nausea/Vomiting/Diarrhea MDM Narrative Medical decision making narrative: Multiple IV attempts were made. Unsuccessful but we did get labs. Ultrasound was being used in surgery but nurse went up to get it to see if we get an ultrasound IV. I did discuss with the patient if she needs chronic infusions for her migraines that she may need to discuss with her physician about getting a port. Nurse went up to the surgery to get the ultrasound and then was able to place an IV with ultrasound guidance. Patient received IV fluids nausea meds and Toradol. She said that she was still in pain and having nausea so I gave her another round of Toradol and gave her some morphine. After this she said that helped and her stomach it settled down and she wanted to go home. Labs are negative for any acute findings. Abdominal exam was benign, I do not believe imaging was indicated at this time. Return to ED if worsening symptoms otherwise follow-up with family doctor outpatient. Patient is comfortable care plan for home. Differential Diagnosis Differential diagnosis: Likely food poisoning, gastroenteritis and dehydration Lab Data Attestation: I reviewed the patient's lab results. Labs: Lab Results 01/31/24 01/31/24 Range/Units 11:36 11:57 WBC 7.5 (4.0-11.0) 10^3/uL RBC 4.59 (4.20-5.40) 10^6/uL Hgb 13.6 (12.0-16.0) g/dL Hct 39.3 (36.0-48.0) % MCV 85.6 (81.0-99.0) fL MCH 29.6 (26.7-34.0) pg MCHC 34.6 (29.9-35.2) g/dL RDW 12.8 (11.0-15.0) % Plt Count 247 (150-450) 10^3/uL MPV 9.0 L (9.5-13.5) fL Neut % (Auto) 68.9 (43.0-75.0) % Lymph % (Auto) 21.4 (20.5-60.0) % Lamar % (Auto) 4.9 (1.7-12.0) % Eos % (Auto) 4.1 (0.9-7.0) % Baso % (Auto) 0.3 (0.2-2.0) % Neut # (Auto) 5.2 (1.4-6.5) 10^3/uL Lymph # (Auto) 1.6 (1.2-3.8) 10^3/uL [place] # (Auto) 0.4 (0.3-0.8) 10^3/uL Eos # (Auto) 0.3 (0.0-0.7) 10^3/uL Baso # (Auto) 0.0 (0.0-0.1) 10^3/uL Abs Immat Gran (auto) 0.03 (0.00-0.03) 10^3/uL Imm/Tot Granulo (auto) 0.4 (0.0-0.5) % Sodium 140 (136-145) mmol/L Potassium 3.6 (3.5-5.1) mmol/L Chloride 105 (98-107) mmol/L Carbon Dioxide 23.7 (21.0-32.0) mmol/L Anion Gap 14.9 BUN 15.0 (7.0-18.0) mg/dL Creatinine 0.86 (0.55-1.02) mg/dL Est GFR ( Amer) >60 (>=60 mL/min/1.73m^2) Est GFR (Non-Af Amer) >60 (>=60 mL/min/1.73m^2) BUN/Creatinine Ratio 17.4 Glucose 93 (74-106) mg/dL Calcium 9.0 (8.5-10.1) mg/dL Total Bilirubin 0.5 (0.2-1.0) mg/dL AST 17 (15-37) U/L ALT 28 (14-59) U/L Alkaline Phosphatase 57 (46-116) U/L Total Protein 6.9 (6.4-8.2) g/dL Albumin 3.6 (3.4-5.0) g/dL Globulin 3.3 g/dL Albumin/Globulin Ratio 1.1 Urine Color Yellow (YELLOW) Urine Clarity Clear (CLEAR) Urine pH 6.0 (5.0-9.0) Ur Specific [place] 1.025 (1.005-1.025) Urine Protein Negative (NEG/TRACE) mg/dL Urine Glucose (UA) Negative (NEGATIVE) mg/dL Urine Ketones Trace A (NEGATIVE) mg/dL Urine Occult Blood Trace-l (NEGATIVE) Urine Nitrite Negative (NEGATIVE) Urine Bilirubin Negative (NEGATIVE) Urine Urobilinogen 0.2 (0.2-1.0) EU/dL Ur Leukocyte Esterase Negative (NEGATIVE) Urine RBC 2-5 A (0-2) #/HPF Urine WBC 2-5 A (NONE SEEN) #/HPF Ur Squamous Epith Cells Many A (NONE/RARE) #/LPF Urine Crystals None seen (None Seen) #/HPF Urine Bacteria Moderate A (NONE SEEN) #/HPF Urine Casts None seen (NONE SEEN) #/LPF Urine Mucus Large A (NONE SEEN) Ur Culture Indicated? Yes Urine HCG, Qual Negative (NEGATIVE) Discharge Plan Discharge Chief Complaint: Nausea/Vomiting/Diarrhea Clinical Impression: Nausea & vomiting Patient Disposition: Home, Self-Care Time of Disposition Decision: 13:14 Condition: Good Mode of Transportation: Private Vehicle Prescriptions / Home Meds: No Action baclofen 10 mg tablet 10 mg PO TID diazepam 10 mg tablet 5 mg PO QID PRN (Reason: seizures) epinephrine 0.3 mg/0.3 mL auto-injector 0.3 mg IM Q10M PRN (Reason: anaphylaxis) Rx Instructions: for 2 doses trazodone 300 mg tablet 300 mg PO .qhs Aimovig Autoinjector 70 mg/mL auto-injector 70 mg SUBCUT ONCE PRN (Reason: migraine headache) lithium carbonate 300 mg tablet 600 mg PO Q12H ketorolac 10 mg tablet 10 mg PO Q8H PRN (Reason: pain) 2 Days Qty: 6 0RF albuterol sulfate 90 mcg/actuation HFA aerosol inhaler 2 puff INHALATION Q4H PRN (Reason: shortness of breath or wheezing) estradiol 1 mg tablet 1 mg PO QAM lamotrigine 150 mg tablet 150 mg PO BID magnesium oxide 400 mg (241.3 mg magnesium) tablet 400 mg PO .qhs promethazine 12.5 mg tablet 12.5 mg PO Q6H PRN (Reason: nausea and vomiting) vilazodone 40 mg tablet 40 mg PO DAILY zolmitriptan 5 mg spray,non-aerosol 1 spray INTRANASAL Q2H PRN (Reason: headache) Rx Instructions: May repeat once if needed after =2 hours promethazine 25 mg suppository 25 mg [place] Q6H PRN (Reason: nausea and vomiting) Qty: 6 0RF diphenhydramine HCl [Benadryl] 25 mg capsule 75 mg PO Q6H PRN (Reason: migraine headache) Print Language: [place] Instructions: Acute Nausea and Vomiting (ED) Referrals: Lamont Blair MD [Primary Care Provider] - 1 week
[2024-01-31] MEDS: 0.9 % SODIUM CHLORIDE 1,000 ML 1000 ML IV (12:02)
[2024-01-31] MEDS: KETOROLAC TROMETHAMINE 30 MG/ML VIAL IVP (12:02)
[2024-01-31] MEDS: ONDANSETRON PF 4 MG/2 ML VIAL IV ×2 (12:02→12:55)
[2024-01-31 12:04] LABS: Alanine Aminotransferase 28 U/L (14-59); Albumin Globulin Ratio 1.1; Albumin Level 3.6 g/dL (3.4-5.0); Alkaline Phosphatase 57 U/L (46-116); Anion Gap 14.9; Aspartate Amino Transferase 17 U/L (15-37); BUN Creatinine Ratio 17.4; Bilirubin Total 0.5 mg/dL (0.2-1.0); Carbon Dioxide 23.7 mmol/L (21.0-32.0); Chloride 105 mmol/L (98-107); Estimated GFR (African America >60 (>=60 mL/min/1.73m^2); Estimated GFR (Non-African Ame >60 (>=60 mL/min/1.73m^2); Globulin 3.3 g/dL; Glucose 93 mg/dL (74-106); Potassium 3.6 mmol/L (3.5-5.1); Sodium 140 mmol/L (136-145); Total Protein 6.9 g/dL (6.4-8.2)
[2024-01-31 12:23] LABS: HCG Qualitative Urine* NEGATIVE (NEGATIVE); Internal Control Within Normal Limits
[2024-01-31 12:43] LABS: Bilirubin Urine NEGATIVE (NEGATIVE); Blood Urine TRACE-L (NEGATIVE); Clarity Urine CLEAR (CLEAR); Color Urine YELLOW (YELLOW); Glucose Urine UA NEGATIVE (NEGATIVE); Ketones Urine TRACE mg/dL (NEGATIVE); Leukocyte Esterase Urine NEGATIVE (NEGATIVE); Nitrite Urine NEGATIVE (NEGATIVE); Protein Urine NEGATIVE (NEG/TRACE); Specific Gravity Urine 1.025 (1.005-1.025); Urobilinogen Urine 0.2 EU/dL (0.2-1.0)
[2024-01-31 12:44] LABS: Urine Microscopic Indicated YES
[2024-01-31 12:51] LABS: Bacteria Urine MODERATE #/HPF (NONE SEEN); Cast Seen? NONE SEEN #/LPF (NONE SEEN); Crystals Seen? None Seen #/HPF (None Seen); Mucus Urine LARGE (NONE SEEN); Squamous Epithelial Cell Urine MANY #/LPF (NONE/RARE)
[2024-01-31 12:52] LABS: Urine Culture Indicated YES
[2024-01-31] MEDS: MORPHINE SULFATE 4 MG/ML VIAL IV (12:55)
[2024-01-31 13:01] VITALS: BP 115/75; PULSE 88; O2SAT 98
== END 2024-01-31 13:21 | disposition home or self-care (01) ==
PROVIDERS: Emergency Provider Emergency Medicine; PCP Family Medicine
DX: R11.2 Nausea with vomiting, unspecified (principal); Z90.710 Acquired absence of both cervix and uterus; Z90.49 Acquired absence of other specified parts of digestive tract; R10.9 Unspecified abdominal pain
CPT/HCPCS: 36415; 80053; 81001; 84703; 85025; 87086; 96361; 96374; 96375; 96376; 99284; J1885; J2270; J2405

== ENCOUNTER 2024-02-09 14:04 | Emergency (ER) | payer OTHER, SELFPAY ==
[2024-02-09 14:08] VITALS: BP 149/89; PULSE 113; TEMP 36.8; O2SAT 95; BMI 47.2
[2024-02-09] MEDS: PROMETHAZINE HCL 25 MG/ML VIAL IM (16:51)
--- NOTE | 2024-02-09 17:05 | ED_ITS ---
HPI HPI - General Adult General Chief complaint: Nausea/Vomiting/Diarrhea Stated complaint: VOMITING, DIARRHEA, SHORT OF BREATH Time Seen by Provider: 02/09/24 15:38 Source: patient Mode of arrival: walk-in Limitations: no limitations History of Present Illness HPI narrative: Patient is a 28-year-old female who is presenting to the ER today with chief complaint of chronic nausea and vomiting, chronic abdominal pain, intermittent chest pain going on for weeks to months. Patient saw his PCP Dr. Blair today. Patient had outpatient ultrasound, CAT scan, and testing done. Patient is also trying to get a Zofran pump through her insurance with her PCP. This is the information that the patient related to me, Leonie RN was at bedside during the entire HPI and physical exam. Patient looks comfortable, playing on her cell phone we walk into the room, sitting in awkward position in the bed, lateral decubitus. Patient states she is having a harder time swallowing anything and when she does she has vomiting. Patient was initially offered a Zofran ODT before I went into the room to see the patient, and patient refused stating that that does not work. Patient has had Phenergan suppositories and Phenergan tablets at home along with Zofran tablets that are not helping. Patient is not showing or displaying any significant signs of dehydration at this time. All systems are negative except as noted/marked. All systems reviewed and otherwise negative. Nurses note and vital signs reviewed and patient is not hypoxic. Medical was at bedside during entire physical exam. General: The patient appears well and in no apparent distress. Patient is resting comfortably on cart. Patient is not toxic, lethargic, or listless Skin: Warm, dry, no pallor noted. There is no rash noted. No petechiae, purpura. Head: Normocephalic, atraumatic Eye: Normal conjunctiva, no drainage, EOMI. PERRL Ears, Nose, Mouth, and Throat: oral mucosa is moist. Nares patent. Mouth without vesicles. Cardiovascular: Regular Rate and Rhythm, no murmur, gallop, rub; no reproducible tenderness to palpation to anterior chest wall. Patient denies rash. Respiratory: Patient is in no distress, no accessory muscle use, lungs are clear to auscultation, no wheezing, rales or rhonchi Back: non-tender, no CVA tenderness bilaterally to percussion. No CT LS midline pain GI: Obese, no midepigastric tenderness to palpation, no tenderness to palpation, no masses appreciated. No rebound, guarding, or rigidity noted. No distention, patient does not have an acute abdomen. Musculoskeletal: Patient has full range of motion of all of the extremities, no motor, sensory, or focal neurological deficits Neurological: A&O x4, normal speech Psychiatric: Cooperative Related Data Home Medications ?Medication ?Instructions ?Recorded ?Confirmed baclofen 10 mg tablet 10 mg PO TID spasms 07/20/22 08/16/23 diazepam 10 mg tablet 5 mg PO QID PRN seizures 07/20/22 08/16/23 epinephrine 0.3 mg/0.3 mL 0.3 mg IM Q10M PRN anaphylaxis 07/20/22 08/16/23 injection, auto-injector diphenhydramine HCl 25 mg capsule 75 mg PO Q6H PRN migraine headache 01/26/23 08/16/23 (Benadryl) trazodone 300 mg tablet 300 mg PO .qhs 03/03/23 08/16/23 erenumab-aooe 70 mg/mL 70 mg subcut ONCE PRN migraine 04/27/23 08/16/23 subcutaneous auto-injector headache (Aimovig Autoinjector) lithium carbonate 300 mg tablet 600 mg PO Q12H 04/27/23 08/16/23 albuterol sulfate 90 mcg/actuation 2 puff inhalation Q4H PRN 08/16/23 08/16/23 aerosol inhaler shortness of breath or wheezing estradiol 1 mg tablet 1 mg PO QAM 08/16/23 08/16/23 lamotrigine 150 mg tablet 150 mg PO BID 08/16/23 08/16/23 magnesium oxide 400 mg (241.3 mg 400 mg PO .qhs 08/16/23 08/16/23 magnesium) tablet promethazine 12.5 mg tablet 12.5 mg PO Q6H PRN nausea and 08/16/23 08/16/23 vomiting vilazodone 40 mg tablet 40 mg PO DAILY 08/16/23 08/16/23 zolmitriptan 5 mg nasal spray 1 spray intranasal Q2H PRN headache 08/16/23 08/16/23 Previous Rx's ?Medication ?Instructions ?Recorded ketorolac 10 mg tablet 10 mg PO Q8H PRN pain 2 days #6 05/13/23 tabs promethazine 25 mg rectal 25 mg NH Q6H PRN nausea and 01/15/24 suppository vomiting #6 ea Allergies Allergy/AdvReac Type Severity Reaction Status Date / Time dihydroergotamine Allergy Unknown Hives Verified 01/31/24 10:29 vortioxetine Allergy Unknown Hives Verified 01/31/24 10:29 buspirone Allergy Hives Verified 01/31/24 10:29 carbamazepine Allergy Unknown Verified 01/31/24 10:29 levetiracetam (From Keppra) Allergy ITCHING Verified 01/31/24 10:29 azithromycin (From Zithromax) AdvReac Intermediate Hives Verified 01/31/24 10:29 bee venom protein (honey bee) AdvReac Intermediate Hives Verified 01/31/24 10:29 metoclopramide (From Reglan) AdvReac Intermediate panic Verified 01/31/24 10:29 adhesive tape AdvReac Mild Rash Verified 01/31/24 10:29 cephalexin (From Keflex) AdvReac Mild Hives Verified 01/31/24 10:29 dextromethorphan (From AdvReac Mild Unknown Verified 01/31/24 10:29 [place] DM) pyrilamine (From [place] DM) AdvReac Mild Unknown Verified 01/31/24 10:29 prochlorperazine (From AdvReac Anxiety Verified 01/31/24 10:29 Compazine) propranolol AdvReac Hives Verified 01/31/24 10:29 Opioid HPI Opioid Management Most Recent Opioid Data: Last Pain Scale 7 02/09/24 15:49 02/09/24 Last ORT Total Score 0 08/16/23 14:51 08/16/23 Last ORT Risk Category Low Risk 08/16/23 14:51 08/16/23 Ur Phencyclidine Scrn Negative (NEGATIVE) 08/16/23 15:15 07/22 08/13 PFSH PFSH Medical History (Updated 02/09/24 @ 17:04 by Kings Wallace MD) Chronic pain disorder ?G89.4 - Chronic pain syndrome (ICD-10) Migraine ?G43.909 - Migraine, unspecified, not intractable, without status migrainosus (ICD-10) Seizure disorder ?G40.909 - Epilepsy, unspecified, not intractable, without status epilepticus (ICD-10) Bipolar disorder ?F31.9 - Bipolar disorder, unspecified (ICD-10) Pelvic pain ?R10.2 - Pelvic and perineal pain (ICD-10) Bilateral occipital neuralgia ?M54.81 - Occipital neuralgia (ICD-10) Combative behavior ?R46.89 - Other symptoms and signs involving appearance and behavior (ICD-10) PCOS (polycystic ovarian syndrome) ?E28.2 - Polycystic ovarian syndrome (ICD-10) Mitral valve prolapse ?I34.1 - Nonrheumatic mitral (valve) prolapse (ICD-10) GERD (gastroesophageal reflux disease) ?K21.9 - Gastro-esophageal reflux disease without esophagitis (ICD-10) Depression ?F32.A - Depression, unspecified (ICD-10) Blood in urine ?R31.9 - Hematuria, unspecified (ICD-10) Acne ?L70.9 - Acne, unspecified (ICD-10) Dyspareunia Brain mass ?G93.89 - Other specified disorders of brain (ICD-10) Kidney stones ?N20.0 - Calculus of kidney (ICD-10) COVID-19 ?U07.1 - COVID-19 (ICD-10) Bronchitis ?J40 - Bronchitis, not specified as acute or chronic (ICD-10) Asthma ?J45.909 - Unspecified asthma, uncomplicated (ICD-10) Stress incontinence ?N39.3 - Stress incontinence (female) (male) (ICD-10) Dysuria ?R30.0 - Dysuria (ICD-10) Anxiety ?F41.9 - Anxiety disorder, unspecified (ICD-10) Surgical History H/O laparoscopy (07/21/22) ?Z98.890 - Other specified postprocedural states (ICD-10) S/P RAVI-BSO ?Z90.710 - Acquired absence of both cervix and uterus (ICD-10) ?Z90.722 - Acquired absence of ovaries, bilateral (ICD-10) ?Z90.79 - Acquired absence of other genital organ(s) (ICD-10) Hx laparoscopic cholecystectomy ?Z90.49 - Acquired absence of other specified parts of digestive tract (ICD- 10) H/O: ?Z98.891 - History of uterine scar from previous surgery (ICD-10) History of appendectomy ?Z90.49 - Acquired absence of other specified parts of digestive tract (ICD- 10) Family History Other Acid reflux Acute renal disease Afib Chromosomal disorder Delayed developmental milestones Diabetes Family history of hypertension High cholesterol Neuro-irritability due to autonomic dysfunction 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 level of school completed/degree received: Associate degree: occupational, technical, vocational program Little interest or pleasure in doing things: not at all Feeling down, depressed, or hopeless: not at all Gender Identity: female Exam Constitutional Vital Signs, click to edit/add: Last Vital Signs Temp 98.3 F 02/09/24 14:08 Pulse 113 H 02/09/24 14:08 Resp 20 02/09/24 14:08 BP 149/89 H 02/09/24 14:08 Pulse Ox 95 02/09/24 14:08 Course Vital Signs Vital signs: Vital Signs Temperature 98.3 F 02/09/24 14:08 Pulse Rate 113 H 02/09/24 14:08 Respiratory Rate 20 02/09/24 14:08 Blood Pressure 149/89 H 02/09/24 14:08 Pulse Oximetry 95 02/09/24 14:08 Temperature 98.3 F 02/09/24 14:08 Pulse Rate 113 H 02/09/24 14:08 Respiratory Rate 20 02/09/24 14:08 Blood Pressure 149/89 H 02/09/24 14:08 Pulse Oximetry 95 02/09/24 14:08 Medical Decision Making MDM Narrative Medical decision making narrative: Patient refused the Zofran ODT 4 mg tablet initially. Patient was then offered IM Phenergan and then also to do EKG and x-ray. Patient was told additional testing will be done if indicated. Patient had ultrasound and CAT scan ordered as an outpatient. No acute indication for IV at this time, patient has been here for several hours and she has not vomited. Patient was educated that Zofrradha ODT typically dissolves in 1 minute, she refused again. Patient did agree to the initial testing, then approximately 10 minutes later, patient had told Souleymane MCKINNON that she wanted to leave, she is going to a higher level of care. Patient left AGAINST MEDICAL ADVICE. The patient is oriented to person, place, and time, demonstrating all chong elements of capacity to make decisions regarding the medical care offered. The patient speaks coherently and exhibits no evidence of having an altered level of consciousness or alcohol or drug intoxication to a point that would impair ability to delineate a choice. He/she is able to ambulate without difficulty. The patient demonstrates understanding and appreciation of the relevant information of the nature their medical condition, as well as the risks, benefits, and treatment alternatives (including nontreatment), Consequences of refusing care, and can appropriately communicative rational reasoning about their choice of care options. Patient is aware of a suspected diagnosis suggested by history and exam. The risks of refusing recommended care that were disclosed and acknowledged by the patient including , unforeseen complications, neurological dysfunction, permanent mental impairment, loss of limb, loss of sexual function, loss of current lifestyle, worsening chronic condition, long-term disability were disclosed. The patient understands they are welcome to return to the hospital anytime to receive the recommended care or any other care at any time, regardless of their ability to pay for such care. Discharge instructions were provided to the patient along with necessary prescriptions if indicated. Discharge Plan Discharge Stand Alone Forms: Portal Instructions Chief Complaint: Nausea/Vomiting/Diarrhea Clinical Impression: Left against medical advice, Nausea & vomiting, Chest pain Patient Disposition: Left Against Medical Advice Time of Disposition Decision: 17:04 Prescriptions / Home Meds: No Action baclofen 10 mg tablet 10 mg PO TID diazepam 10 mg tablet 5 mg PO QID PRN (Reason: seizures) epinephrine 0.3 mg/0.3 mL auto-injector 0.3 mg IM Q10M PRN (Reason: anaphylaxis) Rx Instructions: for 2 doses trazodone 300 mg tablet 300 mg PO .qhs Aimovig Autoinjector 70 mg/mL auto-injector 70 mg SUBCUT ONCE PRN (Reason: migraine headache) lithium carbonate 300 mg tablet 600 mg PO Q12H ketorolac 10 mg tablet 10 mg PO Q8H PRN (Reason: pain) 2 Days Qty: 6 0RF albuterol sulfate 90 mcg/actuation HFA aerosol inhaler 2 puff INHALATION Q4H PRN (Reason: shortness of breath or wheezing) estradiol 1 mg tablet 1 mg PO QAM lamotrigine 150 mg tablet 150 mg PO BID magnesium oxide 400 mg (241.3 mg magnesium) tablet 400 mg PO .qhs promethazine 12.5 mg tablet 12.5 mg PO Q6H PRN (Reason: nausea and vomiting) vilazodone 40 mg tablet 40 mg PO DAILY zolmitriptan 5 mg spray,non-aerosol 1 spray INTRANASAL Q2H PRN (Reason: headache) Rx Instructions: May repeat once if needed after =2 hours promethazine 25 mg suppository 25 mg NH Q6H PRN (Reason: nausea and vomiting) Qty: 6 0RF diphenhydramine HCl [Benadryl] 25 mg capsule 75 mg PO Q6H PRN (Reason: migraine headache) Print Language: Albanian Instructions: Chest Pain (ED) Additional Instructions: Return back to the ER if you change your mind and would like further evaluation. Referrals: Lamont Balir MD [Primary Care Provider] - 1 week
== END 2024-02-09 17:09 | disposition left against medical advice (07) ==
PROVIDERS: Emergency Provider Emergency Medicine; PCP Family Medicine
DX: Z53.29 Procedure and treatment not carried out because of patient's decision for other reasons (principal); R11.2 Nausea with vomiting, unspecified; R19.7 Diarrhea, unspecified; Z90.710 Acquired absence of both cervix and uterus; Z90.49 Acquired absence of other specified parts of digestive tract
CPT/HCPCS: 96372; 99285; J2550

== ENCOUNTER 2024-02-19 07:08 | Outpatient (OUT) | payer OTHER, SELFPAY ==
--- NOTE | 2024-02-19 07:10 | US_ITS ---
[address] [address] Patient Name: MARGARET PLATT MRN: [id number] date: 1995 Sex: F Assigned Patient Location: [place] Current Patient Location: [place] Accession/Order Number: [id number] Exam Date: 02/19/2024 07:11 Report Date: 02/19/2024 08:05 At the request of: BRENDA PATTERSON Procedure: US pelvis w/ transvaginal EXAMINATION: US pelvis w/ transvaginal HISTORY: Pelvic pain in female R10.2 COMPARISON: Ultrasound pelvis 11/24/2022, 08/14/2021 TECHNIQUE: Transabdominal and/or transvaginal sonographic examination was performed as indicated by examination type. FINDINGS: UTERUS: Hysterectomy. RIGHT OVARY: Contains a heterogeneous hypoechoic mass versus complex cyst, 4.6 x 3.7 x 3.2 cm. Duplex Doppler demonstrates normal waveform and flow; resistive index 0.4. Ovary size: 5.3 x 4.4 x 4.2 cm LEFT OVARY: Normal size and appearance. Duplex Doppler demonstrates normal waveform and flow; resistive index 0.4. Ovary size: 2.6 x 1.7 x 2.5 cm CUL-DE-SAC: Unremarkable. No significant free fluid. BLADDER: Unremarkable. OTHER: None. US/US pelvis w/ transvaginal IMPRESSION: 1. Right ovary contains a 4.6 cm mass versus complex cyst. Consider follow-up ultrasound evaluation in 6 weeks to document regression versus stability. 2. Normal appearance of left ovary. 3. Prior hysterectomy. Electronically authenticated by: LOPEZ REYNOLDS Date: 02/19/2024 08:05
--- OUTSIDE RECORDS SUMMARY | 2024-02-19 07:12 | XMS_ITS | CCD ---
Author Organization [facility] Care Team Providers Care Customer Service Clerk Name Role Phone Abdifatah Brady (Historical) Primary Care Provide r Unavailable Sandhya HECK - FADY Angélica Santiago Primary Care Provider SANDHYA ANGÉLICA Santiago Primary Care Unavailable VIELKA CHIGN Attending Unavailable Sandhya MANAGER CENTER - FADY, Angélica Santiago Primary Care Provider LUCILA MOTA Attending Unavailable PAYKINGS Referring Unavailable SANDHYA ANGÉLICA Santiago Primary Care Unavailable LUCILA MOTA Admitting Unavailable Abdifatah Brady (Historical) Primary Care Provide r Unavailable KRISTOFER BURCIAGA Attending Unavailab Zay Tavarez Referring Unavailable Abdifatah Brady (Historical) Primary Care Provide r Unavailable BRICE ., CHAYITO Admitting Unavailable BRICE ., CHAYITO Attending Unavailable BRICE ., CHAYITO Consulting Unavailable LAURITA, DR LAMONT Garcia Primary Care Unavailable ROOPA ., DR GUTIERREZ Admitting Unavailable ROOPA ., DR GUTIERREZ Attending Unavailable NADERER, DR LAMONT Garcia Primary Care Unavailable ROOPA ., DR GUTIERREZ Consulting Unavailable DIAB ., [facility] Attending Unavailable DIAB ., [facility] Consulting Unavailable MISC, DR GOMEZ Primary Care Unavailable DIAB ., [facility] Admitting Unavailable MANJINDER DEAL Attending Unavailable MANJINDER DEAL Consulting Unavailable MANJINDER DEAL Admitting Unavailable LAURITA, DR LAMONT Garcia Primary Care Unavailable ASHLIECHFRED .MARY Consulting Unavaildeshaun e ANASTASIA, DR GOMEZ Primary Care Unavailable PAY ., DR SOLORIO Admitting Unavailable PAY ., DR SOLORIO Attending Unavailable ROOPA ., DR GUTIERREZ Consulting Unavailable ROOPA ., DR GUTIERREZ Admitting Unavailable ROOPA ., DR GUTIERREZ Attending Unavailable REQUEST, DR NONE LISTED Primary Care Unavaila ble SUKHDEEP DOCKERY Attending Unavailable SUKHDEEP DOCKERY Admitting Unavailable KUNMerline, DR ANGÉLICA Santiago Primary Care Unavailable GRECHNY ., MARY WHITNEY Consulting Unavaildeshaun e ANASTASIIA, JASS Consulting Unavailable SUKHDEEP DOCKERY Attending Unavailable KUNMerline, DR ANGÉLICA Santiago Primary Care Unavailable SUKHDEEP [...] MANJINDER Attending Unavailable SAY, MANJINDER Consulting Unavailable KUNMerline, DR ANGÉLICA Santiago Primary Care Unavailable SAY, MANJINDER Attending Unavailable SAY, MANJINDER Consulting Unavailable REQUEST, DR NONE LISTED Primary Care Unavaila ble SAY, MANJINDER Admitting Unavailable PATRICIA WALSH Consulting Unavailable [facility], DR GOMEZ Primary Care Unavailable HAY ., DR HARMAN Attending Unavailable HAY ., DR HARMAN Admitting Unavailable NEWATIA, NICHOLAS Consulting Unavailable UNLU, SINDY Consulting Unavailable ROOPA ., DR GUTIERREZ Admitting Unavailable ROOPA ., DR GUTIERREZ Consulting Unavailable [facility] Primary Care Unavailable ROOPA ., DR GUTIERREZ Attending Unavailable KUNS, DR ANGÉLICA Santiago Primary Care Unavailable ROOPA ., DR GUTIERREZ Admitting Unavailable ROOPA ., DR GUTIERREZ Attending Unavailable ROOPA ., DR GUTIERREZ Consulting Unavailable ROOPA ., DR GUTIERREZ Admitting Unavailable ROOPA ., DR GUTIERREZ Attending Unavailable NADERER, DR LAMONT Garcia Primary Care Unavailable [facility] Primary Care Unavailable HAY ., DR HARMAN Consulting Unavailable HAY ., DR HARMAN Admitting Unavailable HAY ., DR HARMAN Attending Unavailable KONSTNICOLE STEPHENS Consulting Unavailable KUNMerline, DR ANGÉLICA Santiago Primary Care Unavailable MARKER ., DR ONEAL Attending Unavailable MARKER ., DR ONEAL Consulting Unavailable MARKER ., DR ONEAL Admitting Unavailable SCHNEROBIN KING Consulting Unavailable SAY, MANJINDER Attending Unavailable SAY, MANJINDER Consulting Unavailable DOMO DEALYL Admitting Unavailable KUNMerline, DR ANGÉLICA Santiago Primary Care Unavailable KUNMerline, DR ANGÉLICA Santiago Referring Unavailable ROOPA ., DR GUTIERREZ Admitting Unavailable ROOPA ., DR GUTIERREZ Attending Unavailable ROOPA ., DR GUTIERREZ Consulting Unavailable REQUEST, DR NONE LISTED Primary Care Unavaila ble AGUBOSIM, BARON Consulting Unavailable ROOPA ., DR GUTIERREZ Procedure Practitioner Unavail able KRYSTIN HERNADEZ Consulting Unavailable LUCIE, KLEBER Consulting Unavailable DORKOSKHAMIDA, SHARDA Consulting Unavailable ALECIA ., DENNIS Admitting Unavailable ALECIA ., DENNIS Attending Unavailable MISC, DR GOMEZ Primary Care Unavailable HAY ., DR HARMAN Consulting Unavailable RIZZO, ANKUR Consulting Unavailable ALECIA ., DENNIS Consulting Unavailable KUNS, DR ANGÉLICA Santiago Primary Care Unavailable ROOPA ., DR GUTIERREZ Admitting Unavailable ROOPA ., DR GUTIERREZ Attending Unavailable COELHO, MARIPOSA Consulting Unavailable LESLY, BLUE Primary Care Unavailable HAY ., DR HARMAN Attending Unavailable HAY ., DR HARMAN Consulting Unavailable HAY ., DR HARMAN Admitting Unavailable AHDOOT, NELI Consulting Unavailable Abdifatah Brady (Historical) Primary Care Provide r Unavailable Lamont Shay MD Primary Care Provider ОЛЬГА AGUILAR Attending Unavailable BIDDLECOM, SUZAN Referring Unavailable BIDDLECOM, SUZAN Referring Unavailable BIDDLECOM, SUZAN Referring Unavailable BIDDLECOM, SUZAN Referring Unavailable RAIZA MORALES Attending Unavailable BIDDLECOM, SUZAN Attending Unavailable BIDDLECOM, SUZAN Attending Unavailable BIDDLECOM, SUZAN Referring Unavailable GREEN, KOLI Attending Unavailable BIDDLECOM, SUZAN Referring Unavailable BIDDLECOM, SUZAN Attending Unavailable GREEN, CAMERONI Attending Unavailable BIDDLECOM, SUZAN Referring Unavailable CURTIS LEPE Attending Unavailable BIDDLECOM, SUZAN Referring Unavailable GREEN, KOLI Referring Unavailable GREEN, KOLI Attending Unavailable GREEN, KOLI Referring Unavailable GREEN, KOLI Referring Unavailable ОЛЬГА AGUILAR Attending Unavailable GREEN, CAMERONI Referring Unavailable ROOPA, ZAY Attending Unavailable ROOPA, ZAY Attending Unavailable NADERER, LAMONT Attending Unavailable ROOPA, ZAY Attending Unavailable FAWSHAIKH TY Attending Unavailable ROOPA, ZAY Attending Unavailable LAURITA, LAMONT Attending Unavailable LAURITA, LAMONT Attending Unavailable ROOPA, ZAY Attending Unavailable LAURITA, LAMONT Attending Unavailable BRAULIOERER, LAMONT Attending Unavailable NADEREPamela, LAMONT Attending Unavailable Ditty, Dariusz J Admitting Unavailable Dariusz Estrada Attending Unavailable Lamont Shay Primary Care Unavailable NON STAFF Primary Care Unavailable Ramsey Maloney Admitting Unavailab le Ramsey Maloney Attending Unavailab le Allergies Allergy Classification Reported Allergen(s) Allergy Type Date of Onset Reaction(s) Facility Anti-Epileptic Agents (1 source) levETIRAcetam Drug Allergy 023 Itching [facility] Work Phone: Cephalosporins (antibiotic) (1 source) Cephalexin Drug Allergy Rash [facility] Dextromethorphan / Pyrilamine (1 source) Dextromethorphan / Pyrilamine Drug Allergy Hives [facility] Work Phone: Dihydroergotamine (1 source) Dihydroergotamine Drug Allergy 023 Intolerance [facility] DOPamine Antagonists (1 source) Metoclopramide Drug Allergy Intolerance [facility] Macrolides (antibiotic) (1 source) Azithromycin Drug Allergy Other: See Comments [facility] vortioxetine (1 source) vortioxetine Drug Allergy [facility] (20 sources) Azithromycin; Translations: [AZITHROMYCIN] Drug Allergy Hives, Other: See Comments [facility] (2 sources) carBAMazepine Drug Allergy Other (See Comments) [employer] [facility] (20 sources) Cephalexin; Translations: [CEPHALEXIN] Drug Allergy Hives, Rash [facility] (20 sources) Metoclopramide; Translations: [METOCLOPRAMIDE] Drug Allergy 017 Hives, Intolerance, Unknown, Rash [facility] (2 sources) Propranolol Drug Allergy Hives, Other (See Comments) [employer] [facility] (20 sources) Adhesive Tape-Silicones; Translations: [ADHESIVE TAPE-SILICONES] Drug Allergy [facility] (20 sources) Dextromethorphan / Pyrilamine; Translations: [PYRILAMINE-DEXTROME THORPHAN] Drug Allergy [facility] Work Phone: (20 sources) vortioxetine; Translations: [VORTIOXETINE] Drug Allergy 022 [facility] Work Phone: (20 sources) Dihydroergotamine; Translations: [DIHYDROERGOTAMINE] Drug Allergy 023 Intolerance, GI intolerance [facility] (1 source) Azithromycin Drug Allergy [facility] (1 source) bee venom Drug allergy (disorder) [facility] (1 source) Cephalexin Drug Allergy [facility] (1 source) Desonide Drug Allergy [facility] (1 source) Iothalamate Drug Allergy [facility] (2 sources) Propranolol; Translations: [PROPRANOLOL] Drug Allergy [facility] (1 source) [place] [facility] Drug allergy (disorder) [facility] (20 sources) levETIRAcetam; Translations: [LEVETIRACETAM] Drug Allergy 023 Itching [facility] Work Phone: (2 sources) Valproate; Translations: [DIVALPROEX] [facility] 024 [facility] Work Phone: (19 sources) busPIRone Drug Allergy 022 [facility] Work Phone: (19 sources) Carbamazepine Allergy to substance 021 Unknown [facility] (19 sources) Ciprofloxacin Drug Allergy 023 [facility] (19 sources) Clarithromycin Allergy to substance 024 GI intolerance [facility] (19 sources) Clindamycin Drug Allergy 021 Unknown [facility] (19 sources) Dextromethorphan Drug Allergy 023 Hives [facility] (19 sources) Dextromethorphan / Pyrilamine Drug Allergy 022 [facility] (19 sources) Honey bee venom Allergy to substance 023 Unknown [facility] (19 sources) Levetiracetam Propensity to adverse reactions Itching [facility] (20 sources) Propranolol Drug Allergy Hives, Other: See Comments [facility] (19 sources) vortioxetine Drug Allergy Hives [facility] (19 sources) Other Allergy to substance Hives [facility] (19 sources) Wound Dressing Adhesive Drug Allergy Rash [facility] (8 sources) Prochlorperazine; Translations: [PROCHLORPERAZINE] Drug Allergy Intolerance [facility] (1 source) Azithromycin Drug Allergy [facility] (1 source) Cephalexin Drug Allergy [facility] (1 source) levETIRAcetam Drug Allergy [facility] (1 source) Metoclopramide Drug Allergy [facility] (1 source) Prochlorperazine Drug Allergy [facility] Medications Current Medications Medication Drug Class(es) Dates Sig (Normalized) Sig (Original) Acetaminophen (2 sources) Start: 10-19-2021 acetaminophen (TYLENOL) tablet 1,000 mg Start: 10-19-2021 End: 10-19-2021 acetaminophen (TYLENOL) tabl et 650 mg [id number] 200 actuat albuterol 0.09 mg/actuat metered dose inhaler (20 sources) beta2-Adrenergic Agonist Start: 12-12-2023 take 2 puff(s) by inhalation every four hours for wheezing albuterol HFA 90 mcg/act inhaler Indications: Severe persistent asthma without complication (CMS/HCC) Inhale 2 puffs every 4 (four) hours if needed for wheezing or shortness of breath 8.5 g 3 12/12/2023 Active Start: 08-16-2023 take 2 puff(s) by in halation every six hours as needed for wheezing albuterol sulfate 90 mcg/actuation breath activated powder inhaler Inhale 2 Puffs as instructed every 6 hours as needed for wheezing/shortness of breath. 08/16/2023 Active Start: 03-04-2023 End: 03-03-2024 albuterol (2.5 MG/3ML) 0.083 % nebulizer solution Indications: Severe persistent asthma without complication (CMS/HCC) Take 3 mL (2.5 mg) by nebulization every 6 (six) hours if needed for wheezing 75 mL 1 03/04/2023 03/03/2024 Active Start: 03-04-2023 End: 12-06-2023 take 2 puff(s) by inhalation every four hours for wheezing albuterol HFA 90 mcg/act inhaler Indications: Severe persistent asthma without complication (CMS/HCC) Inhale 2 puffs every 4 (four) hours if needed for wheezing 8.5 g 3 11/06/2023 12/06/2023 Active baclofen 10 mg oral tablet (20 sources) gamma-Aminobutyric Acid-ergic Agonist Start: 11-10-2023 End: 02-08-2024 take 1 tablet by mouth in the morning, then take 1 tablet by mouth in the evening, then take 1 tablet by mouth at bedtime baclofen (Lioresal) 10 MG tablet Indications: Pelvic pain in female Take 1 tablet (10 mg) by mouth in the morning and 1 tablet (10 mg) in the evening and 1 tablet (10 mg) before bedtime. 90 tablet 2 11/10/2023 Active Start: 07-14-2023 End: 10-12-2023 take 1 tablet by mouth in the morning, then take 1 tablet by mouth in the evening, then take 1 tablet by mouth at bedtime baclofen (Lioresal) 10 MG tablet Indications: Pelvic pain in female Take 1 tablet (10 mg) by mouth in the morning and 1 tablet (10 mg) in the evening and 1 tablet (10 mg) before bedtime. 90 tablet 2 07/14/2023 Active Start: 11-22-2021 End: 07-10-2023 baclofen (LIORESAL) 10 mg ta blet Comment on above: Take 10 mg by mouth three times a day as needed. benzonatate 200 mg oral capsule (12 sources) Non-narcotic Antitussive Start: End: take 1 capsule by mouth three times daily as needed for cough benzonatate (Tessalon) 200 MG capsule Indications: COVID-19 Take 1 capsule (200 mg) by mouth 3 (three) times a day as needed for cough Do not crush or chew. 30 capsule 1 01/24/2024 Active onabotulinumtoxina 200 unt injection (20 sources) Acetylcholine Release Inhibitor Start: onabotulinum toxin type A 200 Units injection (BOTOX) cetirizine hydrochloride 10 mg oral tablet (19 sources) Histamine-1 Receptor Antagonist cetirizine (ZyrTEC) 10 MG tablet Take by mouth. Active chlorzoxazone 500 mg oral tablet (20 sources) Muscle Relaxant Start: End: take 1 tablet by mouth every twelve [...] immediately at onset of headache for rescue. dexamethasone 6 mg oral tablet (3 sources) Corticosteroid Start: 12-12-19 End: 01-09-20 take 1 tablet by mouth once daily dexAMETHasone (Decadron) 6 MG tablet Indications: COVID-19 Take 1 tablet (6 mg) by mouth Daily for 6 days 6 tablet 12/12/2023 01/09/2024 Discontinued dexamethasone 1 mg/ml / tobramycin 3 mg/ml ophthalmic suspension (11 sources) Aminoglycoside Antibacterial, Corticosteroid Start: 05-12-19 End: 01-09-20 take 1 drop(s) into the eye(s) every six hours tobramycin-dexAMETHa sone (Tobradex) ophthalmic suspension instill 1 drop into both eyes every 6 hours for 7 days 05/12/2023 01/09/2024 Discontinued diazePAM 10 mg oral tablet (20 sources) Benzodiazepine Start: 11-24-19 diazePAM (Valium) 10 MG tablet 03/06/2023 Active End: 01-09-2024 diazePAM (Valium) 2 MG table t Take by mouth every 8 (eight) hours if needed for anxiety. 01/09/2024 Discontinued take 1 tablet by sami th every six hours as needed for anxiety diazePAM (VALIUM) 5 MG tablet Take 5 mg by mouth every 6 hours as needed for Anxiety. 0 Suspended doxycycline hyclate 100 mg oral tablet (6 sources) Tetracycline-class Drug Start: 01-23-2024 End: 02-09-2024 doxycycline (Vibra-Tabs) 100 MG tablet Indications: Mild persistent asthma with (acute) exacerbation (CMS/HCC) Take 1 tablet (100 mg) by mouth in the morning and 1 tablet (100 mg) before bedtime. Do all this for 10 days. Take with a full glass of water and do not lie down for at least 30 minutes after.. 20 tablet 01/23/2024 02/09/2024 Discontinued estradiol 1 mg oral tablet (19 sources) Estrogen Start: 06-29-2023 take 1 tablet by mouth once daily in the morning estradiol (Estrace) 1 MG tablet Indications: Vaginal discharge , Pelvic pain in female take 1 tablet by mouth every morning 30 tablet 3 06/29/2023 Active fluconazole 150 mg oral tablet (1 source) Azole Antifungal Start: 01-24-2024 End: 01-28-2024 take 1 tablet by mouth once fluconazole (Diflucan) 150 MG tablet Indications: Rash , Yeast dermatitis Take 1 tablet (150 mg) by mouth every 3rd (third) day for 2 doses 2 tablet 01/24/2024 01/28/2024 Active 60 actuat formoterol fumarate 0.005 mg/actuat / mometasone furoate 0.1 mg/actuat metered dose inhaler (19 sources) Corticosteroid, beta2-Adrenergic Agonist Start: 04-26-2023 take 2 puff(s) by inhalation in the morning Dulera 100-5 MCG/ACT inhaler Inhale 2 puffs in the morning and 2 puffs before bedtime. 04/26/2023 Active furosemide 40 mg oral tablet (6 sources) Loop Diuretic Start: 01-23-2024 take 1 tablet by mouth once daily as needed for edema furosemide (Lasix) 40 MG tablet Indications: Generalized edema Take 1 tablet (40 mg) by mouth Daily as needed (Edema) 30 tablet 3 01/23/2024 Active Hydrocortisone (3 sources) Corticosteroid Start: 09-25-2023 End: 10-25-2023 Hydrocortisone 2 % cream Indications: Rash Apply 1 application topically in the morning and 1 application before bedtime. 28 g 09/25/2023 10/25/2023 Active ketoconazole 20 mg/ml medicated shampoo (19 sources) Azole Antifungal Start: 11-13-2023 ketoconazole (Nizoral) 2 % shampoo Indications: Seborrheic dermatitis Apply topically 2 (two) times a week 120 mL 2 11/13/2023 Active Start: 03-16-2023 ketoconazole ( Nizoral) 2 % shampoo Indications: Seborrheic dermatitis Apply topically 2 (two) times a week 120 mL 2 03/16/2023 Active lamoTRIgine 200 mg oral tablet (20 sources) Mood Stabilizer, Anti-epileptic Agent Start: 05-18-2023 End: 01-09-2024 take 1 tablet by mouth at bedtime lamoTRIgine (LaMICtal) 200 MG tablet Take 1 tablet by mouth at bedtime 05/18/2023 01/09/2024 Discontinued Start: 11-23-2021 lamoTRIgine (L aMICtal) 150 MG tablet 150 mg. 11/23/2021 Active Start: 10-21-2021 take 2 tablets [...] 300 mg oral tablet (20 sources) Start: 06-02-2023 take 2 tablets by mouth twice daily lithium 300 MG tablet take 2 tablet by mouth twice a day 06/02/2023 Active Start: 06-13-2022 lithium carbon ate 300 mg tablet 06/13/2022 Active End: 01-09-2024 lithium ER (Eskalith) 450 MG 12 hr tablet [place] 01/09/2024 Discontinued loperamide hydrochloride 2 mg oral capsule (1 source) Opioid Agonist Start: 10-20-2021 loperamide (IMODIUM) capsule 2 mg lumateperone (CAPLYTA) 10.5 mg capsule (20 sources) take 1 capsule by mouth once daily lumateperone (CAPLYTA) 10.5 mg capsule Take 10.5 mg by mouth once daily. Active take 1 capsule by mouth once ann ly lumateperone (CAPLYTA) 10.5 mg capsule Take 10.5 mg by mouth once daily. 0 Active Comment on above: Take 10.5 mg by mout h once daily. Lumateperone Tosylate (Caplyta) 10.5 MG capsule (11 sources) End: 01-09-2024 take 1 capsule by mouth in the morning Lumateperone Tosylate (Caplyta) 10.5 MG capsule Take 10.5 mg by mouth in the morning. 01/09/2024 Discontinued take 1 capsule by mouth in the m orning Lumateperone Tosylate (Caplyta) 10.5 MG capsule Take 10.5 mg by mouth in the morning. Active magnesium oxide 400 mg oral capsule (20 [...] 1 tablet by sami th twice daily. Nirmatrelvir&Ritonav ir 300/100 (Paxlovid, 300/100,) 20 x 150 MG & 10 x 100MG tablet therapy pack (3 sources) Start: 12-12-2023 End: 01-09-2024 Nirmatrelvir&Ritonav ir 300/100 (Paxlovid, 300/100,) 20 x 150 MG & 10 x 100MG tablet therapy pack Indications: COVID-19 Take 1 each by mouth See administration instructions 1 each 12/12/2023 01/09/2024 Discontinued Start: 12-12-2023 Nirmatrelvir&R itonavir 300/100 (Paxlovid, 300/100,) 20 x 150 MG & 10 x 100MG tablet therapy pack Indications: COVID-19 Take 1 each by mouth See administration instructions 1 each 12/12/2023 Active nystatin 100 unt/mg topical powder (4 sources) Polyene Antifungal Start: 01-24-2024 End: 04-23-2024 nystatin (Mycostatin) [id number] UNIT/GM powder Indications: Rash , Yeast dermatitis Apply topically 2 (two) times a day 60 g 01/24/2024 04/23/2024 Active ondansetron (ZOFRAN-ODT) disintegrating tablet 4 mg (1 source) Start: 10-19-2021 ondansetron (ZOFRAN-ODT) disintegrating tablet 4 mg 12 hr orphenadrine citrate 100 mg extended release oral tablet (20 sources) Muscle Relaxant Start: 03-17-2023 End: 07-10-2023 take 1 tablet by mouth twice daily as needed, then take 1 tablet by mouth every twelve hours as needed orphenadrine (Norflex) 100 MG 12 hr tablet Take 100 mg by mouth 2 (two) times a day as needed 04/26/2023 Active Start: 12-12-2022 take 1 tablet by sami th every twelve hours as needed orphenadrine ER (NORFLEX) 100 mg tablet Take 1 tablet by mouth two times a day as needed. 30 tablet 5 12/12/2022 Active Comment on above: Take 1 tablet by sami th two times a day as needed. phentermine hydrochloride 37.5 mg oral tablet (20 sources) Sympathomimetic Amine Anorectic Start: End: take 50-59.9 tablets by mouth before mealtime phentermine (Adipex-P) 37.5 MG tablet Indications: Class 3 severe obesity due to excess calories without serious comorbidity with body mass index (BMI) of 50.0 to 59.9 in adult ([facility]) Take 1 tablet (37.5 mg) by mouth in the morning. Take before meals. 30 tablet 01/09/2024 Active Comment on above: take 1 tablet by sami th every morning before meals predniSONE 50 mg oral tablet (15 sources) Start: End: take 1 tablet by mouth once daily predniSONE (Deltasone) 50 MG tablet Indications: Mild persistent asthma with (acute) exacerbation (CMS/HCC) Take 1 tablet (50 mg) by mouth Daily for 6 days 6 tablet 01/23/2024 01/29/2024 Active Start: 11-15-2023 take 6 tablets by mo [facility] once daily, then take 4 tablets by mouth once daily, then take 2 tablets by mouth once daily, then take 1 tablet by mouth once daily predniSONE (Deltasone) 10 MG tablet Indications: Acute bronchitis due to other specified organisms 6 PO daily x 3 days, 4 PO daily x 3 days, 2 PO daily x 3 days, 1 PO daily x 3 days 39 tablet 11/15/2023 Active Start: 11-15-2023 take 6 tablets by mo [facility] once daily, then take 4 tablets by mouth once daily, then take 2 tablets by mouth once daily, then take 1 tablet by mouth once daily predniSONE (Deltasone) 10 MG tablet Indications: Acute bronchitis due to other specified organisms 6 PO daily x 3 days, 4 PO daily x 3 days, 2 PO daily x 3 days, 1 PO daily x 3 days 39 tablet 11/15/2023 Active Start: 10-10-2023 End: 01-09-2024 take 6 tablets by mouth once daily, then take 4 tablets by mouth once daily, then take 2 tablets by mouth once daily, then take 1 tablet by mouth once daily predniSONE (Deltasone) 10 MG tablet Indications: Acute bronchitis due to other specified organisms 6 PO daily x 3 days, 4 PO daily x 3 days, 2 PO daily x 3 days, 1 PO daily x 3 days 39 tablet 11/15/2023 01/09/2024 Discontinued promethazine hydrochloride 25 mg oral tablet (20 sources) Phenothiazine Start: 08-18-2023 End: 11-10-2023 take 1 tablet by mouth every four hours as needed for nausea promethazine (PHENERGAN) 25 mg tablet Indications: Intractable chronic migraine without aura and without status migrainosus Take 1 tablet by mouth every 4 hours as needed. FOR NAUSEA 90 tablet 5 11/10/2023 Active Start: 05-13-2023 End: 01-09-2024 take 1 tablet by mouth every six hours for nausea and vomiting promethazine (Phenergan) 25 MG tablet take 1 tablet by mouth every 6 hours if needed for nausea and vomiting 05/13/2023 01/09/2024 Discontinued Start: 03-17-2023 End: 08-18-2023 take 1 tablet by mouth every six hours as needed promethazine (Phenergan) 12.5 MG tablet Take 12.5 mg by mouth every 6 (six) hours if needed 04/02/2023 Active Start: 06-22-2022 End: 08-31-2022 take 1 tablet by mouth every six hours as needed promethazine (PHENERGAN) 12.5 mg tablet Take 1 tablet by mouth every 6 hours as needed. 90 tablet 2 08/31/2022 Active Comment on above: Take 12.5 mg by mout h every 6 hours as needed. Take 1 tablet by sami th every 6 hours as needed. sulfamethoxazole 800 mg / trimethoprim 160 mg oral tablet (4 sources) Dihydrofolate Reductase Inhibitor Antibacterial, Sulfonamide Antimicrobial Start: 11-15-19 End: 11-29-19 take 1 tablet by mouth once in the morning, then take 1 tablet by mouth once at bedtime sulfamethoxazole- trimethoprim (Bactrim DS) 800-160 MG per tablet Indications: Acute bronchitis due to other specified organisms Take 1 tablet by mouth in the morning and 1 tablet before bedtime. Do all this for 14 days. 28 tablet 11/15/2023 11/29/2023 Active Start: 10-10-2023 End: 10-24-2023 take 1 tablet by mouth once in the morning, then take 1 tablet by mouth once at bedtime sulfamethoxazole-trimethoprim (Bactrim D S) 800-160 MG per tablet Indications: Acute bronchitis due to other specified organisms Take 1 tablet by mouth in the morning and 1 tablet before bedtime. Do all this for 14 days. 28 tablet 10/10/2023 10/24/2023 Active terconazole 4 mg/ml vaginal cream (1 source) Azole Antifungal Start: 01-15-2024 End: 01-22-2024 terconazole (Terazol 7) 0.4 % vaginal cream Indications: Yeast infection Insert 1 applicator into the vagina at bedtime for 7 days 45 g 01/15/2024 01/22/2024 Active 28 actuat tiotropium 0.74248 mg/actuat inhalation spray (19 sources) Anticholinergic Start: 04-26-2023 Spiriva Respimat 1.25 MCG/ACT inhaler inhale 2 puffs by mouth once daily 04/26/2023 Active traMADol hydrochloride 50 mg oral tablet (8 sources) Opioid Agonist Start: 01-09-2024 End: 01-29-2024 take 1 tablet by mouth four times daily as needed for pain traMADol (Ultram) 50 MG tablet Indications: Pain, dental Take 1 tablet (50 mg) by mouth 4 (four) times a day as needed for severe pain for up to 7 days 28 tablet 01/22/2024 01/29/2024 Active traZODone hydrochloride 300 mg oral tablet (20 sources) Serotonin Reuptake Inhibitor Start: 05-10-2023 take 1 tablet by mouth at bedtime traZODone (Desyrel) 300 MG tablet Take 300 mg by mouth at bedtime 05/10/2023 Active Start: 06-13-2022 traZODone (BRIANDA YREL) 100 mg tablet 06/13/2022 Active End: 01-09-2024 traZODone (Desyrel) 50 MG ta blet Take by mouth at bedtime. 01/09/2024 Discontinued ZOLMitriptan 5 mg/actuat nasal spray (20 sources) Serotonin-1b and Serotonin-1d Receptor Agonist Start: 03-17-2023 End: 01-30-2024 ZOLMitriptan (ZOMIG) 5 mg nasal spray Use 1 [place] in the nose as needed at onset of migraine headache. If symptoms persist or return, may repeat dose in other nostril after 2 hours. Maximum of 2 sprays per 24 hours 12 Each 5 01/30/2024 Active Start: 06-24-2022 ZOLMitriptan ( ZOMIG) 5 mg nasal spray Use 1 [place] in the nose as needed at onset of migraine headache. If symptoms persist or return, may repeat dose in other nostril after 2 hours. Maximum of 2 sprays per 24 hours 10 Each 2 06/24/2022 Active Start: 06-24-2022 take 1 spray(s) nasa l route every twenty-four hours as needed ZOLMitriptan (ZOMIG) 5 mg nasal spray Use 1 [place] in the nose as needed. SPRAY IN 1 NOSTRIL AT ONSET OF MIGRAINE HEADACHE. If symptoms persist or return, may repeat dose after 2 hours. Maximum: 5 mg/dose; 10 mg per 24 hours 10 Each 2 06/24/2022 Active Comment on above: Use 1 [place] in the n ose as needed. SPRAY IN 1 NOSTRIL AT ONSET OF MIGRAINE HEADACHE. If symptoms persist or return, may repeat dose after 2 hours. Maximum: 5 mg/dose; 10 mg per 24 hours Use 1 [place] in the n ose as needed at onset of migraine headache. If symptoms persist or return, may repeat dose in other nostril after 2 hours. Maximum of 2 sprays per 24 hours Completed/Discontinued Medications Medication Drug Class(es) Dates Sig (Normalized) Sig (Original) cariprazine 4.5 mg oral capsule (4 sources) [...] 10/20/2021 Discontinued (Stop Taking at Discharge) diphenhydrAMINE (7 sources) Histamine-1 Receptor Antagonist Start: 01-22-2024 End: 01-22-2024 25 mg, INTRAVENOUS, NEEDED, 2 doses, Starting on Mon01/22/24 at 1328, Until Mon01/22/24 at 1429, Sedation/Dystonia/Ak athisia/Anxiety 3rd line Start: 01-19-2024 End: 01-19-2024 25 mg, INTRAVENOUS, NEEDE D, 2 doses, Starting on Mon01/19/24 at 0909, Until Mon01/19/24 at 1012, Sedation/Dystonia/Akathisia/Anxiety 3rd line Start: 01-17-2024 End: 01-17-2024 25 mg, INTRAVENOUS, NEEDE D, 2 doses, Starting on Mon01/17/24 at 0815, Until Mon01/17/24 at 0935, Sedation/Dystonia/Akathisia/Anxiety 3rd line Start: 01-05-2024 End: 01-05-2024 50 mg, INTRAVENOUS, NEEDE D, 1 dose, Starting on Mon01/05/24 at 1327, Until Mon01/05/24 at 1330, Administer per hypersensitivity/anaphylaxis grading in nursing communication Start: 01-05-2024 End: 01-05-2024 25 mg, INTRAVENOUS, NEEDE D, 2 doses, Starting on Mon01/05/24 at 1235, Until Mon01/05/24 at 1559, Sedation/Dystonia/Akathisia/Anxiety 3rd line Start: 10-13-2023 End: 10-13-2023 50 mg, INTRAVENOUS, NEEDE D, 1 dose, Starting on Mon10/13/23 at 1308, Until Mon10/13/23 at 1310, Administer per hypersensitivity/anaphylaxis grading in nursing communication Start: 12-24-2020 End: 12-24-2020 diphenhydrAMINE (BENADRYL) i njection 50 mg 0.4 ml enoxaparin sodium 100 mg/ml prefilled syringe (1 source) Low Molecular Weight Heparin Start: 10-19-2021 inject 40 mg by subcutaneous injection once daily 40 mg, SubCUTAneous, DAILY, First dose on Mon10/19/21 at 1245, Until Discontinued Indication of Use: Prophylaxis-DVT/PE eptinezumab-jjmr 100 mg in NaCl 0.9% 100 mL (VYEPTI) (2 sources) Start: 01-05-2024 End: 01-05-2024 100 mg, INTRAVENOUS, at 200 mL/hr, Administer over 30 Minutes, ONCE, 1 dose, On Mon01/05/24 at 1300, EXP: Administer with 0.2 micron filter. Start: 10-13-2023 End: 10-13-2023 100 mg, INTRAVENOUS, [...] first month only. Refrigerate. Do not shake. 1 ml ketorolac tromethamine 30 mg/ml injection (20 sources) Nonsteroidal Anti-inflammatory Drug, Cyclooxygenase Inhibitor Start: 01-22-2024 End: 01-22-2024 30 mg, INTRAVENOUS, ONCE, 1 dose, On Mon01/22/24 at 1330, Ketorolac (Toradol) is indicated for the short-term (up to 5 days) management of moderately severe acute pain. Continuation of ketorolac (Toradol) beyond 5 days increases the risk of developing serious adverse events. Please verify the duration of therapy for ketorolac (Toradol). Start: 01-19-2024 End: 01-19-2024 30 mg, INTRAVENOUS, ONCE, 1 dose, On 01/19/24 at 0930, Ketorolac (Toradol) is indicated for the short-term (up to 5 days) management of moderately severe acute pain. Continuation of ketorolac (Toradol) beyond 5 days increases the risk of developing serious adverse events. Please verify the duration of therapy for ketorolac (Toradol). Start: 01-17-2024 End: 01-17-2024 30 mg, INTRAVENOUS, ONCE, 1 dose, On Mon01/17/24 at 0830, Ketorolac (Toradol) is indicated for the short-term (up to 5 days) management of moderately severe acute pain. Continuation of ketorolac (Toradol) beyond 5 days increases the risk of developing serious adverse events. Please verify the duration of therapy for ketorolac (Toradol). Start: 01-05-2024 End: 01-05-2024 30 mg, INTRAVENOUS, ONCE, 1 dose, On Mon01/05/24 at 1330, Ketorolac (Toradol) is indicated for the short-term (up to 5 days) management of moderately severe acute pain. Continuation of ketorolac (Toradol) beyond 5 days increases the risk of developing serious adverse events. Please verify the duration of therapy for ketorolac (Toradol) Start: 01-05-2024 End: 01-05-2024 keTORolac 30 mg injection (T oradol) Start: 10-13-2023 End: 10-13-2023 30 mg, INTRAVENOUS, [...] of the opioid, if preferred: Yes Start: 10-13-2023 End: 10-13-2023 keTORolac 30 mg injection (T oradol) Start: 05-14-2023 take 1 tablet by sami th every eight hours as needed ketorolac (Toradol) 10 MG tablet Take 1 tablet by mouth every 8 (eight) hours if needed 05/14/2023 Active Start: 03-16-2023 End: 11-10-2023 take 1 tablet [...] (severe migraine). Take 10 mg by mouth. levETIRAcetam 250 mg oral tablet (3 sources) Start: 08-09-19 23 levETIRAcetam (KEPPRA) 250 mg tablet Take 1 at bedtime. Can increase to bid after 2 weeks if needed 60 tablet 2 08/08/2022 Active Comment on above: Take 1 at bedtime. C an increase to bid after 2 weeks if needed LORazepam 2 mg oral tablet (2 sources) Benzodiazepine End: 10-21-19 22 take 1 tablet by mouth twice daily LORazepam (ATIVAN) 2 MG tablet Take 2 mg by mouth 2 times daily. 0 10/20/2021 Discontinued (Stop Taking at Discharge) 100 ml magnesium sulfate 10 mg/ml injection (3 sources) Start: 01-22-20 End: 01-22-20 1 g, INTRAVENOUS, at 100-200 mL/hr, Administer over 0.5-1 Hours, ONCE, 1 dose, On Mon01/22/24 at 1330, Magnesium sulfate iv bolus will be infused at a rate of 1 gram/hr The following nursing units may administer 2 g dose over 1 hour if necessary: ICUs/PACU/ED, Adult Hematology/Oncology, Labor and Delivery, Cardiac Stepdown, Headache Clinic If necessary, a magnesium sulfate bolus may be administered greater than 2 g/hr for the following indications: Adult and Pediatric Asthma Exacerbations, Torsade de Pointes, Pediatric BMT and Hematology/Oncology, Eclampsia or Preeclampsia Start: 01-19-2024 End: 01-19-2024 1 g, INTRAVENOUS, at 100-200 mL/hr, Administer over 0.5-1 Hours, ONCE, 1 dose, On Mon01/19/24 at 0930, Magnesium sulfate iv bolus will be infused at a rate of 1 gram/hr The following nursing units may administer 2 g dose over 1 hour if necessary: ICUs/PACU/ED, Adult Hematology/Oncology, Labor and Delivery, Cardiac Stepdown, Headache Clinic If necessary, a magnesium sulfate bolus may be administered greater than 2 g/hr for the following indications: Adult and Pediatric Asthma Exacerbations, Torsade de Pointes, Pediatric BMT and Hematology/Oncology, Eclampsia or Preeclampsia Start: 01-17-2024 End: 01-17-2024 1 g, INTRAVENOUS, at 100-200 mL/hr, Administer over 0.5-1 Hours, ONCE, 1 dose, On Mon01/17/24 at 0830, Magnesium sulfate iv bolus will be infused at a rate of 1 gram/hr The following nursing units may administer 2 g dose over 1 hour if necessary: ICUs/PACU/ED, Adult Hematology/Oncology, Labor and Delivery, Cardiac Stepdown, Headache Clinic If necessary, a magnesium sulfate bolus may be administered greater than 2 g/hr for the following indications: Adult and Pediatric Asthma Exacerbations, Torsade de Pointes, Pediatric BMT and Hematology/Oncology, Eclampsia or Preeclampsia methocarbamol iv infusion 1, 000 mg in NaCl 0.9% 100 mL (ROBAXIN) (3 sources) Start: 01-22-2024 End: 01-22-2024 1,000 mg, INTRAVENOUS, Administer over 30 Minutes, ONCE, 1 dose, On Mon01/22/24 at 1330, Administer IV while in recumbent position. Maintain position for at least 10-15 minutes following infusion. Start: 01-19-2024 End: 01-19-2024 1,000 mg, INTRAVENOUS, Admin ister over 30 Minutes, ONCE, 1 dose, On Mon01/19/24 at 0930, Administer IV while in recumbent position. Maintain position for at least 10-15 minutes following infusion. Start: 01-17-2024 End: 01-17-2024 1,000 mg, INTRAVENOUS, Admin ister over 30 Minutes, ONCE, 1 dose, On Mon01/17/24 at 0830, Administer IV while in recumbent position. Maintain position for at least 10-15 minutes following infusion. 1 ml methylPREDNISolone acetate 80 mg/ml injection (4 sources) Corticosteroid Start: 02-09-2024 End: 02-09-2024 methylPREDNISolone acetate (DEPO-Medrol) injection 80 mg Start: 02-09-2024 End: 02-09-2024 methylPREDNISolone acetate ( DEPO-Medrol) injection 80 mg Start: 02-09-2024 End: 02-09-2024 80 mg, Injection, Once, On F ri 02/09/24 at 1130, For 1 dose Start: 02-09-2024 End: 02-09-2024 80 mg, Injection, Once, On F ri 02/09/24 at 1130, For 1 dose 2 ml midazolam 1 mg/ml injection (1 [...] needed 2 ml ondansetron 2 mg/ml injection (6 sources) Serotonin-3 Receptor Antagonist Start: 01-22-2024 End: 01-22-2024 8 mg, INTRAVENOUS, EVERY 1 HOUR NEEDED, 2 doses, Starting on Mon01/22/24 at 1328, Until Mon01/22/24 at 1758, Nausea/Vomiting - First Line - Parenteral Start: 01-19-2024 End: 01-19-2024 8 mg, INTRAVENOUS, EVERY 1 H OUR NEEDED, 2 doses, Starting on Mon01/19/24 at 0909, Until Mon01/19/24 at 1355, Nausea/Vomiting - First Line - Parenteral Start: 01-17-2024 End: 01-17-2024 8 mg, INTRAVENOUS, EVERY 1 H OUR NEEDED, 2 doses, Starting on Mon01/17/24 at 0815, Until Mon01/17/24 at 1329, Nausea/Vomiting - First Line - Parenteral Start: 01-05-2024 End: 01-05-2024 8 mg, INTRAVENOUS, EVERY 1 H OUR NEEDED, 2 doses, Starting on Mon01/05/24 at 1235, Until Mon01/05/24 at 1559, Nausea/Vomiting - First Line - Parenteral Start: 10-13-2023 End: 10-13-2023 8 mg, INTRAVENOUS, EVERY 1 H OUR NEEDED, 2 doses, Starting on Mon10/13/23 at 1221, Until Mon10/13/23 at 1600, Nausea/Vomiting - First Line - Parenteral Start: 12-24-2020 End: 12-24-2020 ondansetron (ZOFRAN) injecti on 4 mg polyethylene glycol [id number] mg powder for oral solution (1 source) Osmotic Laxative Start: 10-19-2021 17 g, Oral, D AILY PRN, Starting on Mon10/19/21 at 1226, Until Discontinued, Constipation First line therapy for constipation prochlorperazine 5 mg/ml injectable solution (3 sources) Phenothiazine Start: 01-22-2024 End: 01-22-2024 10 mg, INTRAVENOUS, NEEDED, 1 dose, Starting on Mon01/22/24 at 1328, Until Mon01/22/24 at 1407, for headache; previously tolerated if given with Benadryl, Protect From Light Start: 01-19-2024 End: 01-19-2024 10 mg, INTRAVENOUS, NEEDE D, 1 dose, Starting on Mon01/19/24 at 0909, Until Mon01/19/24 at 0951, for headache; previously tolerated if given with Benadryl, Protect From Light Start: 01-17-2024 End: 01-17-2024 10 mg, INTRAVENOUS, NEEDE D, 1 dose, Starting on Mon01/17/24 at 0815, Until Mon01/17/24 at 0923, for headache; previously tolerated if given with Benadryl, Protect From Light 20 ml ropivacaine hydrochloride 5 mg/ml injection (2 sources) Amide Local Anesthetic Start: 08-18-2023 End: 08-18-2023 ROPivacaine (PF) 5 mg/mL (0.5 %) 100 mg injection (NAROPIN) 1000 ml sodium chloride 9 mg/ml injection (8 sources) Start: 01-19-2024 End: 01-19-2024 500 mL, INTRAVENOUS, at 999 mL/hr, Administer over 0.5 Hours, ONCE, 1 dose, On Mon01/19/24 at 0930 Start: 01-17-2024 End: 01-17-2024 500 mL, INTRAVENOUS, at 999 mL/hr, Administer over 0.5 Hours, ONCE, 1 dose, On Mon01/17/24 at 0830 Start: 10-19-2021 take 1 dose intraven ously twice daily 5-40 mL, IntraVENous, EVERY 12 [...] Date Documented Da te Episodic/Chronic Abdominal pain (20 sources) Unspecified abdominal pain; Translations: [Pelvic and perineal pain] Onset: 08-17-2021 Resolved: 10-10-2023 Episodic Anxiety disorders (20 sources) Anxiety disorder, unspecified; Translations: [Generalized anxiety disorder] Onset: 06-22-2022 01-24-2023 Chronic Asthma (20 sources) Unspecified asthma, uncomplicated; Translations: [Mild persistent asthma] Onset: 06-22-2022 01-24-2023 Chronic Coma; stupor; and brain damage (1 source) Somnolence; Translations: [SOMNOLENCE] Onset: 06-22-2022 Episodic Disorders of teeth and jaw (13 sources) Toothache; Translations: [Other specified disorders of teeth and supporting structures] Onset: 01-09-2024 01-09-2024 Episodic E Codes: Fall (1 source) Unspecified [...] [NONRHEUMATIC MITRAL VALVE PROLAPSE] Onset: 06-16-2022 Chronic Malaise and fatigue (13 sources) Fatigue; Translations: [Other fatigue] Onset: 01-01-2024 01-01-2024 Episodic Menstrual disorders (1 source) Dysmenorrhea, unspecified; Translations: [DYSMENORRHEA UNSPECIFIED] Onset: 10-08-2021 Chronic Miscellaneous mental health disorders (20 sources) Dissociative convulsions; Translations: [Conversion disorder with seizures or convulsions] Onset: 10-20-2021 Chronic Mood disorders (20 sources) Bipolar disorder, unspecified; Translations: [Major depressive disorder, single episode, unspecified] Onset: 10-21-2021 01-24-2023 Chronic Mood disorders (1 source) Mood disorders; Translations: [DEPRESSION UNSPECIFIED] Onset: 06-22-2022 Nausea and vomiting (16 sources) Nausea; Translations: [Nausea with vomiting, unspecified] Onset: 08-14-2021 Episodic Other aftercare (1 source) Other longitudinal float operator (current) drug therapy; Translations: [OTH CAMP MANAGER CURRENT DRUG THERAPY] Onset: 06-22-2022 Episodic Other aftercare (11 sources) Long-term current use of drug therapy; Translations: [Other shelter (current) drug therapy] Onset: 01-01-2024 01-01-2024 Episodic Other endocrine disorders (1 source) Polycystic ovarian syndrome; Translations: [POLYCYSTIC OVARIAN SYNDROME] Onset: 06-16-2022 Chronic Other endocrine disorders (19 sources) Polycystic ovary; Translations: [Polycystic ovarian syndrome] Onset: 01-24-2023 01-24-2023 Chronic Other female genital disorders (1 source) [...] CHANGE LIVER NEC] Onset: 01-19-2022 Chronic Other lower respiratory disease (8 sources) Dyspnea on exertion; Translations: [Shortness of breath] Onset: 01-23-2024 01-23-2024 Episodic Other nervous system disorders (1 source) Tremor; Translations: [Tremor, unspecified] Episodic Other nutritional; endocrine; and metabolic disorders (1 source) Morbid (severe) obesity due to excess calories; Translations: [MORBID SEVERE OBES D/T EXCESS DAJUAN] Onset: 06-22-2022 Chronic Other nutritional; endocrine; and metabolic disorders (1 source) Body mass index (BMI) 45.0-49.9, adult; Translations: [BODY MASS INDEX BMI 45.0-49.9 ADULT] Onset: 06-22-2022 Chronic Other nutritional; endocrine; and metabolic disorders (8 sources) Morbid obesity; Translations: [Morbid (severe) obesity due to excess calories] Onset: 03-21-2023 03-21-2023 Chronic Other nutritional; endocrine; and metabolic disorders (13 sources) Severe obesity; Translations: [Class 3 severe obesity due to excess calories without serious comorbidity with body mass index (BMI) of 50.0 to 59.9 in adult] Onset: 03-21-2023 01-01-2024 Chronic Residual codes; unclassified (1 source) Acquired absence of other specified parts of digestive tract; Translations: [ACQ ABSENCE OTH PART DIGESTV TRACT] Onset: 06-22-2022 Episodic Residual codes; unclassified (8 sources) Edema, generalized; Translations: [Generalized edema] Onset: 01-23-2024 01-23-2024 Episodic Spondylosis; intervertebral disc disorders; other back problems (2 sources) Cervicalgia; Translations: [Neck pain] Onset: 05-25-2022 12-09-2022 Episodic Unclassified (3 sources) LOW BACK PAIN, UNSPECIFIED; Translations: [LOW BACK PAIN, UNSPECIFIED] Onset: 01-19-2022 Unclassified (1 source) CONTACT W/AND (SUSP) EXPOS COVID-19; Translations: [CONTACT W/AND (SUSP) EXPOS COVID-19] Onset: 04-04-2022 Viral infection (1 source) Disease caused by 2019-nCoV; Translations: [COVID-19] 01-24-2024 Episodic Past or Other Problems Problem Classification Problem Date Documented Da te Episodic/Chronic Acute bronchitis (20 sources) Acute infective bronchitis; Translations: [Acute bronchitis due to other specified organisms] Onset: 10-10-2023 Resolved: 01-09-2024 10-10-2023 Episodic Contraceptive and procreative management (1 source) [...] [OTH SPECIFIED POSTPROCEDURAL STATES] Onset: 10-08-2021 Episodic Residual codes; unclassified (19 sources) Persistent insomnia; Translations: [Insomnia, unspecified] Onset: 01-24-2023 01-24-2023 Episodic Unclassified (1 source) LOW BACK PAIN, UNSPECIFIED; Translations: [LOW BACK PAIN, UNSPECIFIED] Onset: 01-14-2022 Urinary tract infections (1 source) Urinary tract infection, site not specified; Translations: [UTI SITE NOT SPECIFIED] Onset: 08-18-2021 Episodic Results Test Name Value Interpretation Reference [facility] ---- CONI NICOHLSON ([id number]) 1995 F Date Time Provider Department 01/29/24 LOGAN BARTH [facility] During your visit today, we recorded the following information about you: Kelsey Patel 01/29/2024 10:53 AM Signed Name of Caller: nicky Relationship to patient: pharmacy Last visit in this department: 09/19/2023 Reason for Call: Other : need to verify quantity on zolmitriptan. Callback number: [phone] Amy Shrestha MA 01/29/2024 12:06 PM Signed Per last Rx on 11/10/2023: Disp Refills Start End ZOLMitriptan (ZOMIG) 5 mg nasal spray 10 Each 5 11/10/2023 -- Sig: Use 1 [place] in the nose as needed at onset of migraine headache. If symptoms persist or return, may repeat dose in other nostril after 2 hours. Maximum of 2 sprays per 24 hours I called the pharmacy and hey need to know if Provider would like to dispense #6 or #12 cartridges. They do not come in 10. Please advise. Thank you Logan Barth APRN.CNP 01/30/2024 2:59 PM Addendum Dispense 12 pls. I rewrote the rx. Logan Barth APRN.Logan Glass APRN.CNP 01/30/2024 2:59 PM Signed The following approved medication requests have been transmitted electronically. Requested Prescriptions Signed Prescriptions Disp Refills ZOLMitriptan (ZOMIG) 5 mg nasal spray 12 Each 5 Sig: Use 1 [place] in the nose as needed at onset of migraine headache. If symptoms persist or return, may repeat dose in other nostril after 2 hours. Maximum of 2 sprays per 24 hours Authorizing Provider: LOGAN BARTH APRN.CNP Green, Koli, APRN.CNP 01/30/2024 2:59 PM Signed Addended by: LOGAN BARTH on: 01/30/2024 02:59 PM Modules accepted: Orders Allergies As of Date: 01/29/2024 Noted Allergy Reaction DIHYDROERGOTAMINE 07/27/2022 5 - Intolerance Comments: Chest tightness, numbness and tingling in bilateral extremities, increased anxiety ADHESIVE TAPE-SILICONES 12/03/2021 2 - Rash AZITHROMYCIN 12/03/2021 14 - Other: See Comments KEFLEX (CEPHALEXIN) 12/03/2021 2 - Rash KEPPRA (LEVETIRACETAM) 11/11/2022 9 - Itching PROPRANOLOL 12/20/2020 4 - Hives 14 - Other: See Comments Comments: Migrianes PYRILAMINE-DEXTROME THORPHAN 01/07/2022 4 - Hives REGLAN (METOCLOPRAMIDE) 12/03/2021 5 - Intolerance VORTIOXETINE 08/06/2021 4 - Hives PROCHLORPERAZINE 12/29/2023 5 - Intolerance Date Reviewed: 01/22/2024 Reviewed by: Raiza Morales APRN.INSPECTOR AIDE - Fully Assessed Order(s):ZOLMitript an (ZOMIG) 5 mg nasal sprayUse 1 [place] in the nose as needed at onset of migraine headache. If symptoms persist or return, may repeat dose in other nostril after 2 hours. Maximum of 2 sprays per 24 hoursDisp: 12 EachRfl: 5 Prescriptions as of 02/01/2024 - ZOLMitriptan (ZOMIG) 5 mg nasal spray Use 1 [place] in the nose as needed at onset of migraine headache. If symptoms persist or return, may repeat dose in other nostril after 2 hours. Maximum of 2 sprays per 24 hours - albuterol sulfate 90 mcg/actuation breath activated powder inhaler Inhale 2 Puffs as instructed every 6 hours as needed for wheezing/shortness of breath. - promethazine (PHENERGAN) 25 mg tablet Take 1 tablet by mouth every 4 hours as needed. FOR NAUSEA - keTORolac (TORADOL) 10 mg tablet Take 1 tablet by mouth every 6 hours as needed (severe migraine). - chlorzoxazone (PARAFON FORTE DSC) 500 mg tablet Take 1 tablet by mouth two times a day as needed for muscle spasm (migraine). - magnesium oxide 400 mg magnesium cap Take 1 capsule by mouth daily at bedtime. - lumateperone (CAPLYTA) 10.5 mg capsule Take 10.5 mg by mouth once daily. 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 If symptoms persist or return, may repeat dose in other nostril after 2 hours. Maximum of 2 sprays per 24 hours Medications Discontinued During This Encounter Prescriptions - ZOLMitriptan (ZOMIG) 5 mg nasal spray (Discontinued) Use 1 [place] in the nose as needed at onset of migraine headache. If symptoms persist or return, may repeat dose in other nostril after 2 hours. Maximum of 2 sprays per 24 hours Encounter Status:Closed by KELSEY PATEL on 01/30/24 [facility] 01-22-2024 [facility] Office Visit ([facility]) ---- CONI NICHOLSON ([id number]) 1995 F Date Time Provider Department 01/22/24 2:30 PM [facility] During your visit today, we recorded the following information about you: Raiza Morales APRN.INSPECTOR AIDE 01/22/2024 1:57 PM Signed [facility] Note Subjective: Coni Pradeep Nicholson is a 28 year old year old female presenting for day 3 of infusions. Therapy Plan: zofran toradol magnesium robaxin New health conditions since orders were placed: No Cardiovascular risk factors: None Triptan dose in the last 24 hours: No Last muscle relaxer dose: No Last NSAID dose: No Response to infusions: Patient tolerating infusion without side effects. Current Preventative: Vyepti , Lamictal, magnesium , Botox Current Abortive: Toradol, phenergan, Parafon Forte, Zomig Labs: Latest Ref Rng AND Units 04/01/2022 CBC WBC 3.70 - 11.00 [...] Lymph 1.00 - 4.00 k/uL 0.84 Abs Dale <0.87 k/uL 0.06 Abs Eosin <0.46 k/uL <0.03 Abs Baso <0.11 k/uL <0.03 NRBC /100 WBC 0.0 Latest Ref Rng AND Units 04/01/2022 CMP Sodium 136 - 144 mmol/L 139 Potassium 3.7 - 5.1 mmol/L 4.5 Chloride 97 - 105 mmol/L 105 CO2 22 - 30 mmol/L 20 Glucose 74 - 99 mg/dL 120 BUN 7 - 21 mg/dL 11 Creatinine 0.58 - 0.96 mg/dL 0.64 EGFR >=60 mL/min/1.73m? 125 Protein, Total 6.3 - 8.0 g/dL 6.9 Albumin 3.9 - 4.9 g/dL 4.2 Calcium 8.5 - 10.2 mg/dL 8.9 Bilirubin, Total 0.2 - 1.3 mg/dL 0.3 AST 13 - 35 U/L 14 ALT 7 - 38 U/L 12 Alkaline Phosphatase 34 - 123 U/L 84 ALLERGIES Allergen Reactions Dihydroergotamine Intolerance Chest tightness, numbness and tingling in bilateral extremities, increased anxiety Adhesive Tape-Silic* Rash Azithromycin Other: See Comments Keflex [Cephalexin] Rash Keppra [Levetiracet* Itching Propranolol Hives, Other: See Comments Migrianes Pyrilamine-Dextrome * Hives Reglan [Metoclopram* Intolerance Vortioxetine Hives Prochlorperazine Intolerance Current Medications: albuterol sulfate 90 mcg/actuation breath activated powder inhalerInhale 2 Puffs as instructed every 6 hours as needed for wheezing/shortness of breath.Disp: Rfl: promethazine (PHENERGAN) 25 mg tabletTake 1 tablet by mouth every 4 hours as needed. FOR NAUSEADisp: 90 tabletRfl: 5 ZOLMitriptan (ZOMIG) 5 mg nasal sprayUse 1 Tipton in the nose as needed at onset of migraine headache. If symptoms persist or return, may repeat dose in other nostril after 2 hours. Maximum of 2 sprays per 24 hoursDisp: 10 EachRfl: 5 keTORolac (TORADOL) 10 mg tabletTake 1 tablet by mouth every 6 hours as needed (severe migraine).Disp: 20 tabletRfl: 5 chlorzoxazone (PARAFON FORTE DSC) 500 mg tabletTake 1 tablet by mouth two times a day as needed for muscle spasm (migraine).Disp: 20 tabletRfl: 5 magnesium oxide 400 mg magnesium capTake 1 capsule by mouth daily at bedtime.Disp: 90 capsuleRfl: 3 lumateperone (CAPLYTA) 10.5 mg capsuleTake 10.5 mg by mouth once daily.Disp: Rfl: (Patient not taking: Reported on 01/17/2024) lithium carbonate 300 mg tabletDisp: Rfl: traZODone (DESYREL) 100 mg tabletDisp: Rfl: lamoTRIgine (LAMICTAL) 150 mg tabletDisp: Rfl: diazePAM (VALIUM) 10 mg tabletDisp: Rfl: Review of Systems: Review of system: Patient reports no change from the prior visit. Objective: VS: see infusion note for vital signs General: well appearing, in no acute distress, alert, overweight Neurological: Pain Behaviors: no pain behaviors observed Mental Status: Alert and oriented to person, place and time. Affect is normal and appropriate. Speech is spontaneous and fluent without dysarthria, normal in rate, volume and articulation, and clear, coherent, and relevant. Short and shelter memory, cognition and general fund of knowledge are good. Attention span and concentration are good. Cranial Nerves: VII-face is symmetric without evidence of weakness. VIII-hearing intact. Assessment: (G43.711) Chronic migraine without aura, with intractable migraine, so stated, with status migrainosus (primary encounter diagnosis) Plan: Coni Nicholson is a 28 year old year old female, with a history of asthma, anxiety, depression, PCOS, occipital neuralgia, psychogenic nonepileptic seizures, and chronic migraine following up today for day 3 of infusions. Patient reports 30 pound weight gain over last few months, scheduled to see PCP tomorrow to discuss this (was previously prescribed weight loss medication but did not start this yet). Denies any chest pain, VSS. Will hold extra IV fluids (more content not included)... Normal [facility] CNOVon 09-19-2023 [facility] Office Visit ([facility]) ---- CONI NICHOLSON ([id number]) 1995 F Date Time Provider Department 09/19/23 2:30 PM LOGAN BARTH [facility] During your visit today, we recorded the following information about you: Temperature Pulse Blood pressure Weight 99.1 degrees 80/minute 115/81 118.8 kg Height 1.584 m Logan Barth APRN.INSPECTOR AIDE 09/19/2023 3:12 PM Signed Outpatient [facility] [...] XL, Qudexy) Anti-Depressant and Antipsychotic Amitriptyline (Elavil) [place] (Eskalith, Lithobid) Nortriptyline (Pamelor, Aventyl) Anti-Migraine Dihydroergotamine [...] ZOLMitriptan (ZOMIG) 5 mg nasal sprayUse 1 Tipton in the nose as needed at onset [...] these with the patient: yes Logan Barth APRN.INSPECTOR AIDE HEADACHE SCORES: 03/22/2023 07/10/2023 09/19/2023 Headache Questions ER visits since last office visit: 6 8 6 Hospital stays since last office visit 2 1 Limited ADL (more content not included)... Normal [facility] CNOVon 08-18-2023 [facility] Office Visit ([facility]) ---- CONI NICHOLSON ([id number]) 1995 F Date Time Provider Department 08/18/23 9:30 AM CURTIS LEPE [facility] During your visit today, we recorded [...] 1 month Curtis Lepe PA-C Headache Section [facility] August 18, 2023 Curtis Lepe PA-C 08/18/2023 2:39 PM Signed You received a greater occipital nerve block (GONB) today You may feel sore tomorrow at the site of the injection. You may use heat or ice for discomfort and gentle stretching. This should resolve in 24-36 hours. Greater Occipital Nerve Block (GONB) Article in [place] [employer] Journal By: Molina Barraza MD Many patients with chronic headache report that their (more content not included)... Normal [facility] CNOVon 04-14-2023 [facility] Office Visit ([facility]) ---- CONI NICHOLSON ([id number]) 1995 F Date Time Provider Department 04/14/23 8:30 AM SUZAN DRIVER [facility] During your visit today, we recorded the following information about you: Suzan Driver APRN.INSPECTOR AIDE 04/14/2023 10:49 AM Signed [facility] Infusion CATRINA Note Primary Problem List: ACTIVE PROBLEM LIST Seizure-Like Activity (Hcc) Psychogenic Nonepileptic Seizure Intractable Chronic Migraine Without Aura and With Status Migrainosus Chronic Migraine Without Aura, With Intractable Migraine, So Stated, With Status Migrainosus Subjective: Conialexandra Nicholson is a 27 year old year old female, with a history of asthma, anxiety, depression, PCOS, occipital neuralgia, psychogenic nonepileptic seizures, and migraine following up today for day 3 of infusions. 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 Short and longitudinal float operator memory, cognition and general fund of [...] which included preparing to see the patient, [id number] patient care, completing clinical documentation, obtaining and/or reviewing separately obtained history, performing a medically appropriate examination, counseling and educating the patient/family/manager medicare marketing, and ordering medications, tests, or procedures. Suzan Driver APRN.INSPECTOR AIDE Headache Section [facility] Suzan Driver APRN.INSPECTOR AIDE 04/14/2023 10:49 AM Signed Follow up/ discharge plan: f/u in 3 months Start aimovig this Aimovig Information Aimovig is a CGRP monoclonal antibody (MAB). CGRP is a substance in the brain that plays a chong role in causing migraine. Aimovig was specifically developed t (more content not included)... [facility] ---- CONI NICHOLSON ([id number]) 1995 F Date Time Provider Department 04/13/23 LOGAN BARTH [facility] During your visit today, we recorded the following information about you: Johana Cancino RN 04/13/2023 9:30 AM Signed Patient is currently receiving infusions for headache. She is interested in learning about reboot program. Please schedule for evaluation. Johana Cancino RN Soumya Mendoza 04/17/2023 12:44 PM Signed Patient is schedule.d [...] (ZOMIG) 5 mg nasal spray Use 1 Tipton in the nose as needed at onset [...] Encounter Status:Closed by JOHANA CANCINO on 04/13/23 [facility] CNOVon 04-12-2023 CN Office Visit ([facility] ---- CONI NICHOLSON ([id number]) 1995 F Date Time Provider Department 04/12/23 1:30 PM SUZAN DRIVER [facility] During your visit today, we recorded the following information about you: Suzan Driver APRN.INSPECTOR AIDE 04/12/2023 11:52 AM Signed General Headache Education [...] much light. These can be obtained at [facility] or [employer]: see list below. 2. Limit use of acute treatments (uytv-ygz-gvtxaio medications, triptans, etc.) to no more than [...] and quiet environment. Relax and reduce stress. [id number] is a free catrina that can instruct you on some simple relaxtion and breathing techniques. Http://[employer]ERads is a free website that provides teaching [...] epilepsy i (more content not included)... Normal [facility] Veronica 03-27-2023 BASHIR Telephone ([facility]) ---- CONI NICHOLSON ([id number]) 1995 F Date Time Provider Department 03/27/23 ANGELY COTTON During your visit today, we recorded the following information about you: Angely Cotton RN 03/27/2023 1:05 PM Signed [facility] received prescription(s) for Aimovig 70MG/ML auto-injectors . Benefits investigation was conducted, indicating that a prior authorization is required. PA was initiated and pending review through [employer]. All pertinent clinical information was submitted to insurance. CMM Chong: [id number] Ordering Provider: Logan Barth APRN.CNP Murtaugh, Alisha, RN [facility] P: , F: Angely Cotton RN 04/03/2023 12:43 PM Signed Ambulatory Pharmacy Prior Authorization Note Provider Intervention Required?: No- Pharmacy completed on your behalf. Rx Plan: Medicaid [facility] ([facility]) Drug: Aimovig 70MG/ML auto-injectors Cover My Meds Chong: [id number] Determination: Approved Prior Authorization/Case #: n/a Prior [...] refills. Prescriptions will now be processed through [facility] for determination of next steps. For questions relating to this submission, please contact [facility] at [phone] Allergies As of Date: 03/27/2023 Noted Allergy [...] Date Reviewed: 03/23/2023 Reviewed by: Logan Barth APRN.INSPECTOR AIDE - Fully Assessed Reason for Visit: Insurance Authorization [2023] Cmt: Aimovig 70MG/ML auto-injectors Prescriptions as of 04/03/2023 - Phentermine HCl 37.5 mg tablet take 1 tablet by mouth every morning before meals - erenumab-aooe (AIMOVIG AUTOINJECTOR) 70 mg/mL auto-injector Inject 1 mL subcutaneously once every month. Do not shake. - ZOLMitriptan (ZOMIG) 5 mg nasal spray Use 1 Tipton in the nose as needed at onset [...] Encounter Status:Closed by ANGELY COTTON on 04/03/23 Normal [facility] FADYNon 03-21-2023 BASHIR Telephone ([facility]) ---- CONI NICHOLSON ([id number]) 1995 F Date Time Provider Department 03/21/23 [...] Date Reviewed: 12/12/2022 Reviewed by: Logan Barth APRN.INSPECTOR AIDE - Fully Assessed Reason for Visit: Patient Request [[id number]] Cmt: Headache infusions Prescriptions as of 03/21/2023 - ZOLMitriptan (ZOMIG) 5 mg nasal spray Use 1 Tipton in the nose as needed at onset [...] Encounter Status:Closed by MENDOZA DOOLEY on 03/21/23 Normal [facility] BLOOD GASES BTYon 06-20-2022 02 MODE ROOM AIR Normal [facility] Comment on above: Performed By: #### B MP #### [facility] [address] [place] [address] Dr. Ibis Jimenez ALLENS TEST Positive [facility] Comment on above: Performed By: #### B MP #### [facility] [address] [address] [address] Ibis Jimenez Base excess Calc (Bld) [Moles/Vol] -1.6000 mmol/L Normal -2.0-2.0 [facility] Comment on above: Performed By: #### B MP #### [facility] [address] [address] [address] Ibis Jimenez BIPAP PRESSURE Normal [facility] Comment on above: Performed By: #### B MP #### [facility] [address] [address] [address] Ibis Jimenez CPAP [facility] Comment on above: Performed By: #### B MP #### [facility] [address] [place] [address] Dr. Ibis Jimenez FIO2 [facility] Comment on above: Performed By: #### B MP #### [facility] [address] [address] [address] Ibis Jimenez HCO3 (Bld) [Moles/Vol] 23.8 mmol/L Normal 22.0-26.0 [facility] Comment on above: Performed By: #### B MP #### [facility] [address] [place] [address] Dr. Ibis Jimenez LPM [facility] Comment on above: Performed By: #### B MP #### [facility] [address] [place] [address] Dr. Ibis Jimenez MINUTE VOLUME Normal [facility] Comment on above: Performed By: #### B MP #### [facility] [address] [place] [address] Dr. Ibis Jimenez Oxygen (Bld) [Partial pressure] 75.5 mm[Hg] Critically low 80.0-100.0 [facility] Comment on above: Performed By: #### B MP #### [facility] [address] [place] [address] Dr. Ibis Jimenez Oxygen saturation in Blood 95.8 % Normal 95.0-100.0 [facility] Comment on above: Performed By: #### B MP #### [facility] [address] [place] [address] Dr. Ibis Jimenez PCO2 41.8 mmHg Normal 35.0-45.0 [facility] Comment on above: Performed By: #### B MP #### [facility] [address] [place] [address] Dr. Ibis Jimenez PEEP [facility] Comment on above: Performed By: #### B MP #### [facility] [address] [place] [address] Dr. Ibis Jimenez pH (Bld) 7.363 [pH] Normal 7.350-7.450 [facility] Comment on above: Performed By: #### B MP #### [facility] [address] [place] [address] Dr. Ibis Jimenez PIP [facility] Comment on above: Performed By: #### B MP #### [facility] [address] [place] [address] Dr. Ibis Jimenez PS [facility] Comment on above: Performed By: #### B MP #### [facility] [address] [place] [address] Dr. Ibis Jimenez PUNCTURE SITE LR [facility] Comment on above: Performed By: #### B MP #### [facility] [address] [place] [address] Dr. Ibis Jimenez [facility] Comment on above: Performed By: #### B MP #### [facility] [address] [place] [address] Dr. Ibis Jimenez VENT [facility] Comment on above: Performed By: #### B MP #### [facility] [address] [place] [address] Dr. Ibis Jimenez [facility] Comment on above: Performed By: #### B MP #### [facility] [address] [place] [address] Dr. Ibis Jimenez CBC AUTO DIFFon 06-20-2022 BASO # 0.0 103/ul Normal 0.0-0.1 [facility] Comment on above: Performed By: #### A CET, SALYC #### [facility] [address] [place] [address] Dr. Ibis Jimenez Basophils/100 WBC (Bld) 0.5 % Normal 0.2-2.0 [facility] Comment on above: Performed By: #### A CET, SALYC #### [facility] [address] [place] [address] Dr. Ibis Jimenez EO # 0.3 103/ul Normal 0.0-0.7 [facility] Comment on above: Performed By: #### A CET, SALYC #### [facility] [address] [place] [address] Dr. Ibis Jimenez Eosinophils/100 WBC (Bld) 4.2 % Normal 0.9-7.0 [facility] Comment on above: Performed By: #### A CET, SALYC #### [facility] [address] [address] [address] Ibis Jimenez Erythrocyte distribution width (RBC) [Ratio] 13.2 % Normal 11.0-15.0 [facility] Comment on above: Performed By: #### A CET, SALYC #### [facility] [address] [place] [address] Dr. Ibis Jimenez Hematocrit (Bld) [Volume fraction] 36.5 % Normal 36.0-48.0 [facility] Comment on above: Performed By: #### A CET, SALYC #### [facility] [address] [place] [address] Dr. Ibis Jimenez Hemoglobin (Bld) [Mass/Vol] 11.7 g/dL Critically low 12.0-16.0 [facility] Comment on above: Performed By: #### A CET, SALYC #### [facility] [address] [place] [address] Dr. Ibis Jimenez IG # 0.05 10e3/ul Critically high 0.00-0.03 [facility] Comment on above: Performed By: #### A CET, SALYC #### [facility] [address] [place] [address] Dr. Ibis Jimenez IG % 0.8 % Critically high 0.0-0.5 [facility] Comment on above: Performed By: #### A CET, SALYC #### [facility] [address] [place] [address] Dr. Ibis Jimenez LYMPH # 1.7 103/ul Normal 1.2-3.8 [facility] Comment on above: Performed By: #### A CET, SALYC #### [facility] [address] [place] [address] Dr. Ibis Jimenez Lymphocytes/100 WBC (Bld) 26.9 % Normal 20.5-60.0 [facility] Comment on above: Performed By: #### A CET, SALYC #### [facility] [address] [place] [address] Dr. Ibis Jimenez MANUAL DIFF REQ NO Normal [facility] Comment on above: Performed By: #### A CET, SALYC #### [facility] [address] [place] [address] Dr. Ibis Jimenez MCH (RBC) [Entitic mass] 28.7 pg Normal 26.7-34.0 [facility] Comment on above: Performed By: #### A CET, SALYC #### [facility] [address] [place] [address] Dr. Ibis Jimenez MCHC (RBC) [Mass/Vol] 32.1 g/dL Normal 29.9-35.2 [facility] Comment on above: Performed By: #### A CET, SALYC #### [facility] [address] [place] [address] Dr. Ibis Jimenez MCV (RBC) [Entitic vol] 89.7 fL Normal 81.0-99.0 [facility] Comment on above: Performed By: #### A CET, SALYC #### [facility] [address] [place] [address] Dr. Ibis Jimenez MONO # 0.6 103/ul Normal 0.3-0.8 [facility] Comment on above: Performed By: #### A CET, SALYC #### [facility] [address] [place] [address] Dr. Ibis Jimenez Monocytes/100 WBC (Bld) 8.9 % Normal 1.7-12.0 [facility] Comment on above: Performed By: #### A CET, SALYC #### [facility] [address] [place] [address] Dr. Ibis Jimenez NEUT # 3.8 103/ul Normal 1.4-6.5 [facility] Comment on above: Performed By: #### A CET, SALYC #### [facility] [address] [place] [address] Dr. Ibis Jimenez Neutrophils/100 WBC (Bld) 58.7 % Normal 43.0-75.0 [facility] Comment on above: Performed By: #### A CET, SALYC #### [facility] [address] [place] [address] Dr. Ibis Jimenez Platelet mean volume (Bld) [Entitic vol] 9.3 fL Critically low 9.5-13.5 [facility] Comment on above: Performed By: #### A CET, SALYC #### [facility] [address] [place] [address] Dr. Ibis Jimenez PLT 188 103/ul Normal 150-450 [facility] Comment on above: Performed By: #### A CET, SALYC #### [facility] [address] [address] [address] Ibis Jimenez RBC 4.07 106/ul Critically low 4.20-5.40 [facility] Comment on above: Performed By: #### A CET, SALYC #### [facility] [address] [place] [address] Dr. Ibis Jimenez WBC 6.4 103/ul Normal 4.0-11.0 [facility] Comment on above: Performed By: #### A CET, SALYC #### [facility] [address] [place] [address] Dr. Ibis Jimenez DRUG SCREEN RAPID (URINE)on 06-20-2022 AMP Negative Normal NEGATIVE [facility] Comment on above: Performed By: #### B MP #### [facility] [address] [place] [address] Dr. Ibis Jimenez BAR Positive Abnormal NEGATIVE [facility] Comment on above: Performed By: #### B MP #### [facility] [address] [place] [address] Dr. Ibis Jimenez BUP Negative Normal NEGATIVE [facility] Comment on above: Performed By: #### B MP #### [facility] [address] [place] [address] Dr. Ibis Jimenez BZO Positive Abnormal NEGATIVE [facility] Comment on above: Performed By: #### B MP #### [facility] [address] [place] [address] Dr. Ibis Jimenez SEMAJ Negative Normal NEGATIVE [facility] Comment on above: Performed By: #### B MP #### [facility] [address] [place] [address] Dr. Ibis Jimenez CUT-OFFS SEE BELOW Normal [facility] Comment on above: Result Comment: AMP [...] By: #### B MP #### [facility] [address] [place] [address] Dr. Ibis Jimenez DRUG CUT HEADER DRUG CLASS TEST SYSTEM CUT-OFF CONCENTRATIONS ARE FOLLOWS: Normal [facility] Comment on above: Performed By: #### B MP #### [facility] [address] [place] [address] Dr. Ibis Jimenez mAMP Negative Normal NEGATIVE [facility] Comment on above: Performed By: #### B MP #### [facility] [address] [place] [address] Dr. Ibis Jimenez MTD Negative Normal NEGATIVE [facility] Comment on above: Performed By: #### B MP #### [facility] [address] [place] [address] Dr. Ibis Jimenez OPI Negative Normal NEGATIVE [facility] Comment on above: Performed By: #### B MP #### [facility] [address] [place] [address] Dr. Ibis Jimenez OXY Negative Normal NEGATIVE [facility] Comment on above: Performed By: #### B MP #### [facility] [address] [place] [address] Dr. Ibis Jimenez PCP Negative Normal NEGATIVE [facility] Comment on above: Performed By: #### B MP #### [facility] [address] [place] [address] Dr. Ibis Jimenez PPX Negative Normal NEGATIVE [facility] Comment on above: Performed By: #### B MP #### [facility] [address] [place] [address] Dr. Ibis Jimenez TCA Positive Abnormal NEGATIVE [facility] Comment on above: Performed By: #### B MP #### [facility] [address] [place] [address] Dr. Ibis Jimenez THC Positive Abnormal NEGATIVE [facility] Comment on above: Performed By: #### B MP #### [facility] [address] [place] [address] Dr. Ibis Jimenez ER URINE PROFILEon 3 Bilirubin Ql (U) Negative Normal NEGATIVE [facility] Comment on above: Performed By: #### A CET, SALYC #### [facility] [address] [place] [address] Dr. Ibis Jimenez Clarity (U) CLEAR Normal CLEAR [facility] Comment on above: Performed By: #### A CET, SALYC #### [facility] [address] [place] [address] Dr. Ibis Jimenez Color (U) YELLOW Normal YELLOW [facility] Comment on above: Performed By: #### A CET, SALYC #### [facility] [address] [place] [address] Dr. Ibis RODRIGUEZ A micrscopic examination will be performed if indicated. Normal [facility] Comment on above: Performed By: #### A CET, SALYC #### [facility] [address] [place] [address] Dr. Ibis Jimenez Glucose Ql (U) Negative Normal NEGATIVE [facility] Comment on above: Performed By: #### A CET, SALYC #### [facility] [address] [place] [address] Dr. Ibis Jimenez Hemoglobin Ql (U) Negative Normal NEGATIVE [facility] Comment on above: Performed By: #### A CET, SALYC #### [facility] [address] [place] [address] Dr. Ibis Jimenez Ketones Ql (U) Negative Normal NEGATIVE [facility] Comment on above: Performed By: #### A CET, SALYC #### [facility] [address] [place] [address] Dr. Ibis Jimenez LEUKOCYTES Negative Normal NEGATIVE [facility] Comment on above: Performed By: #### A CET, SALYC #### [facility] [address] [place] [address] Dr. Ibis Jimenez Nitrite Ql (U) Negative Normal NEGATIVE [facility] Comment on above: Performed By: #### A CET, SALYC #### [facility] [address] [place] [address] Dr. Ibis Jimenez pH (U) 5.0 [pH] Normal 5-9 [facility] Comment on above: Performed By: #### A CET, SALYC #### [facility] [address] [place] [address] Dr. Ibis Jimenez SPEC GRAVITY >=1.030 Abnormal 1.005-<=1.02 5 [facility] Comment on above: Performed By: #### A CET, SALYC #### [facility] [address] [place] [address] Dr. Ibis Jimenez UA PROTEIN Negative Normal NEGATIVE/ TRACE [facility] Comment on above: Performed By: #### A CET, SALYC #### [facility] [address] [place] [address] Dr. Ibis Jimenez UR MICRO IND NOT INDICATED Normal [facility] Comment on above: Performed By: #### A CET, SALYC #### [facility] [address] [place] [address] Dr. Ibis Jimenez Urobilinogen Qn (U) 0.2 {Dinorah'U}/dL Normal 0.2 - 1. 0 [facility] Comment on above: Performed By: #### A CET, SALYC #### [facility] [address] [place] [address] Dr. Ibis Jimenez PROF CHEM 8 (BAS METB)on Anion gap [Moles/Vol] 13.1 mmol/L Normal [facility] Comment on above: Performed By: #### M DAVID #### [facility] [address] [address] [address] Ibis Jimenez Calcium [Mass/Vol] 8.3 mg/dL Critically low 8.5-10.1 [facility] Comment on above: Performed By: #### M DAVID #### [facility] [address] [address] [address] Ibis Jimenez Chloride [Moles/Vol] 109 mmol/L Critically high 98-107 [facility] Comment on above: Performed By: #### M DAVID #### [facility] [address] [address] [address] Ibis Jimenez CO2 [Moles/Vol] 25.7 mmol/L Normal 21.0-32.0 [facility] Comment on above: Performed By: #### M DAVID #### [facility] [address] [address] [address] Ibis Jimenez Creatinine [Mass/Vol] 0.82 mg/dL Normal 0.55-1.02 [facility] Comment on above: Performed By: #### M DAVID #### [facility] [address] [address] [address] Ibis Jimenez EGFR-AF SWAZI >60 Normal >=60 [facility] Comment on above: Performed By: #### M DAVID #### [facility] [address] [address] [address] Ibis Jimenez EGFR-NON AF SWAZI >60 Normal >=60 [facility] Comment on above: Performed By: #### M DAVID #### [facility] [address] [address] [address] Ibis Jimenez Glucose [Mass/Vol] 95 mg/dL Normal 74-106 [facility] Comment on above: Performed By: #### M DAVID #### [facility] [address] [address] [address] Ibis Jimenez Potassium [Moles/Vol] 3.8 mmol/L Normal 3.5-5.1 [facility] Comment on above: Performed By: #### M DAVID #### [facility] [address] [address] [address] Ibis Jimenez Sodium [Moles/Vol] 144 mmol/L Normal 136-145 [facility] Comment on above: Performed By: #### M DAVID #### [facility] [address] [address] [address] Ibis Jimenez Urea nitrogen [Mass/Vol] 16.0 mg/dL Normal 7.0-18.0 [facility] Comment on above: Performed By: #### M DAVID #### [facility] [address] [place] [address] Dr. Ibis Jimenez Urea nitrogen/Creatinine [Mass ratio] 19.5 mg/mg Normal [facility] Comment on above: Performed By: #### M DAVID #### [facility] [address] [place] [address] Dr. Ibis Jimenez ACETAMINOPHENon 06-19-2022 Acetaminophen [Mass/Vol] ug/mL Critically low 10.0-30.0 [facility] Comment on above: Performed By: #### A KORI DAVIS #### [facility] [address] [place] [address] Dr. Ibis Jimenez DRUG SCREEN RAPID (URINE)on 06-19-2022 AMP Negative Normal NEGATIVE [facility] Comment on above: Performed By: #### M DAVID #### [facility] [address] [place] [address] Dr. Ibis Jimenez BAR Positive Abnormal NEGATIVE [facility] Comment on above: Performed By: #### M DAVID #### [facility] [address] [place] [address] Dr. Ibis Jimenez BUP Negative Normal NEGATIVE [facility] Comment on above: Performed By: #### M DAVID #### [facility] [address] [place] [address] Dr. Ibis Jimenez BZO Positive Abnormal NEGATIVE [facility] Comment on above: Performed By: #### M DAVID #### [facility] [address] [place] [address] Dr. Ibis Jimenez SEMAJ Negative Normal NEGATIVE [facility] Comment on above: Performed By: #### M DAVID #### [facility] [address] [place] [address] Dr. Ibis Jimenez CUT-OFFS SEE BELOW Normal [facility] Comment on above: Result Comment: AMP [...] By: #### M DAVID #### [facility] [address] [place] [address] Dr. Ibis Jimenez DRUG CUT HEADER DRUG CLASS TEST SYSTEM CUT-OFF CONCENTRATIONS ARE FOLLOWS: Normal [facility] Comment on above: Performed By: #### M DAVID #### [facility] [address] [place] [address] Dr. Ibis Jimenez mAMP Negative Normal NEGATIVE [facility] Comment on above: Performed By: #### M DAVID #### [facility] [address] [place] [address] Dr. Ibis Jimenez MTD Negative Normal NEGATIVE [facility] Comment on above: Performed By: #### M DAVID #### [facility] [address] [place] [address] Dr. Ibis Jimenez OPI Positive Abnormal NEGATIVE [facility] Comment on above: Performed By: #### M DAVID #### [facility] [address] [address] [address] Ibis Jimenez OXY Negative Normal NEGATIVE [facility] Comment on above: Performed By: #### M DAVID #### [facility] [address] [place] [address] Dr. Ibis Jimenez PCP Negative Normal NEGATIVE [facility] Comment on above: Performed By: #### M DAVID #### [facility] [address] [address] [address] Ibis Jimenez PPX Negative Normal NEGATIVE [facility] Comment on above: Performed By: #### M DAVID #### [facility] [address] [address] [address] Ibis Jimenez TCA Negative Normal NEGATIVE [facility] Comment on above: Performed By: #### M DAVID #### [facility] [address] [place] [address] Dr. Ibis Jimenez THC Positive Abnormal NEGATIVE [facility] Comment on above: Performed By: #### M DAVID #### [facility] [address] [place] [address] Dr. Ibis Jimenez ER URINE PROFILEon 3 Bilirubin Ql (U) Negative Normal NEGATIVE [facility] Comment on above: Performed By: #### M DAVID #### [facility] [address] [place] [address] Dr. Ibis Jimenez Clarity (U) CLEAR Normal CLEAR [facility] Comment on above: Performed By: #### M DAVID #### [facility] [address] [place] [address] Dr. Ibis Jimenez Color (U) YELLOW Normal YELLOW [facility] Comment on above: Performed By: #### M DAVID #### [facility] [address] [place] [address] Dr. Ibis RODRIGUEZ A micrscopic examination will be performed if indicated. Normal [facility] Comment on above: Performed By: #### M DAVID #### [facility] [address] [place] [address] Dr. Ibis Jimenez Glucose Ql (U) Negative Normal NEGATIVE [facility] Comment on above: Performed By: #### M DAVID #### [facility] [address] [place] [address] Dr. Ibis Jimenez Hemoglobin Ql (U) TRACE-INTACT Abnormal NEGATIVE [facility] Comment on above: Performed By: #### M DAVID #### [facility] [address] [place] [address] Dr. Ibis Jimenez Ketones Ql (U) Negative Normal NEGATIVE [facility] Comment on above: Performed By: #### M DAVID #### [facility] [address] [address] [address] Ibis Jimenez LEUKOCYTES Negative Normal NEGATIVE [facility] Comment on above: Performed By: #### M DAVID #### [facility] [address] [place] [address] Dr. Ibis Jimenez Nitrite Ql (U) Negative Normal NEGATIVE [facility] Comment on above: Performed By: #### M DAVID #### [facility] [address] [place] [address] Dr. Ibis Jimenez pH (U) 6.0 [pH] Normal 5-9 [facility] Comment on above: Performed By: #### M DAVID #### [facility] [address] [place] [address] Dr. Ibis Jimenez Protein (U) [Mass/Vol] 30 mg/dL Abnormal NEGAT ADALGISA/ TRACE [facility] Comment on above: Performed By: #### M DAVID #### [facility] [address] [place] [address] Dr. Ibis Jimenez SPEC GRAVITY 1.025 Normal 1.005-<=1.02 5 [facility] Comment on above: Performed By: #### M DAVID #### [facility] [address] [place] [address] Dr. Ibis Jimenez UR MICRO IND INDICATED Normal [facility] Comment on above: Performed By: #### M DAVID #### [facility] [address] [place] [address] Dr. Ibis Jimenez Urobilinogen Qn (U) 0.2 {Dinorah'U}/dL Normal 0.2 - 1. 0 [facility] Comment on above: Performed By: #### M DAVID #### [facility] [address] [place] [address] Dr. Ibis Jimenez ETHANOL (BLD ALC)on 06-20-19 ALC NOTE NOTE: 80 mg/dl is the legal limit for a blood alcohol level Normal [facility] Comment on above: Performed By: #### A MM #### [facility] [address] [address] [address] Ibis Jimenez Ethanol [Mass/Vol] mg/dL Normal [facility] Comment on above: Performed By: #### A MM #### [facility] [address] [address] [address] Ibis Jmienez POINT OF CARE GLUCOSEon 05-23 Glucose [Mass/Vol] 88 mg/dL Normal 74-106 [facility] Comment on above: Performed By: #### C VDTBH #### [facility] [address] [address] [address] Ibis Jimenez URon 06-19-2022 , QUAL Negative Normal NEGATIVE [facility] Comment on above: Performed By: #### M DAVID #### [facility] [address] [place] [address] Dr. Ibis Jimenez PROF CHEM 8 (BAS METB)on Anion gap [Moles/Vol] 12.6 mmol/L Normal [facility] Comment on above: Performed By: #### A MM #### [facility] [address] [address] [address] Ibis Jimenez Calcium [Mass/Vol] 8.4 mg/dL Critically low 8.5-10.1 [facility] Comment on above: Performed By: #### A MM #### [facility] [address] [place] [address] Dr. Ibis Jimenez Chloride [Moles/Vol] 107 mmol/L Normal 98-107 [facility] Comment on above: Performed By: #### A MM #### [facility] [address] [place] [address] Dr. Ibis Jimenez CO2 [Moles/Vol] 22.5 mmol/L Normal 21.0-32.0 [facility] Comment on above: Performed By: #### A MM #### [facility] [address] [place] [address] Dr. Ibis Jimenez Creatinine [Mass/Vol] 0.82 mg/dL Normal 0.55-1.02 [facility] Comment on above: Performed By: #### A MM #### [facility] [address] [address] [address] Ibis Jimenez EGFR-AF SWAZI >60 Normal >=60 [facility] Comment on above: Performed By: #### A MM #### [facility] [address] [address] [address] Ibis Jimenez EGFR-NON AF SWAZI >60 Normal >=60 [facility] Comment on above: Performed By: #### A MM #### [facility] [address] [address] [address] Ibis Jimenez Glucose [Mass/Vol] 87 mg/dL Normal 74-106 [facility] Comment on above: Performed By: #### A MM #### [facility] [address] [place] [address] Dr. Ibis Jimenez Potassium [Moles/Vol] 4.1 mmol/L Normal 3.5-5.1 [facility] Comment on above: Performed By: #### A MM #### [facility] [address] [address] [address] Ibis Jimenez Sodium [Moles/Vol] 138 mmol/L Normal 136-145 [facility] Comment on above: Performed By: #### A MM #### [facility] [address] [place] [address] Dr. Ibis Jimenez Urea nitrogen [Mass/Vol] 22.0 mg/dL Critically high 7.0-18.0 [facility] Comment on above: Performed By: #### A MM #### [facility] [address] [address] [address] Ibis Jimenez Urea nitrogen/Creatinine [Mass ratio] 26.8 mg/mg Normal [facility] Comment on above: Performed By: #### A MM #### [facility] [address] [place] [address] Dr. Ibis Jimenez SALICYLATEon 06-19-2022 SALICYLATE <2.8 Normal <=19.9 [facility] Comment on above: Performed By: #### A BEE DAVISYC #### [facility] [address] [address] [address] Ibis Jimenez URINE MICROSCOPIC ONLYon BACTERIA NONE SEEN Normal NONE SEEN [facility] Comment on above: Performed By: #### M DAVID #### [facility] [address] [place] [address] Dr. Ibis Jimenez Bacteria identified Cx Nom (U) NOT INDICATED Normal [facility] Comment on above: Performed By: #### M DAVID #### [facility] [address] [place] [address] Dr. Ibis Jimenez CAST SEEN Abnormal NONE SEEN [facility] Comment on above: Performed By: #### M DAVID #### [facility] [address] [place] [address] Dr. Ibis Jimenez Crystals LM Nom (Urine sed) NONE SEEN Normal NONE SEEN [facility] Comment on above: Performed By: #### M DAVID #### [facility] [address] [place] [address] Dr. Ibis Jimenez Epithelial cells LM Ql (Urine sed) MODERATE Abnormal NONE SEEN /RARE [facility] Comment on above: Performed By: #### M DAVID #### [facility] [address] [place] [address] Dr. Ibis Jimenez HYALINE CAST FEW Normal [facility] Comment on above: Performed By: #### M DAVID #### [facility] [address] [place] [address] Dr. Ibis Jimenez MUCOUS NONE SEEN Normal NONE SEEN [facility] Comment on above: Performed By: #### M DAVID #### [facility] [address] [place] [address] Dr. Ibis Jimenez RBC 2-5 Abnormal 0-2 [facility] Comment on above: Performed By: #### M DAVID #### [facility] [address] [place] [address] Dr. Ibis Jimenez WBC NONE SEEN Normal NONE SEEN [facility] Comment on above: Performed By: #### M DAVID #### [facility] [address] [place] [address] Dr. Ibis Jimenez CBC AUTO DIFFon 06-11-2022 BASO # 0.0 103/ul Normal 0.0-0.1 [facility] Comment on above: Performed By: #### C VDTBH #### [facility] [address] [place] [address] Dr. Ibis Jimenez Basophils/100 WBC (Bld) 0.3 % Normal 0.2-2.0 [facility] Comment on above: Performed By: #### C VDTBH #### [facility] [address] [place] [address] Dr. Ibis Jimenez EO # 0.0 103/ul Normal 0.0-0.7 [facility] Comment on above: Performed By: #### C VDTBH #### [facility] [address] [place] [address] Dr. Ibis Jimenez Eosinophils/100 WBC (Bld) 0.1 % Critically low 0.9-7.0 [facility] Comment on above: Performed By: #### C VDTBH #### [facility] [address] [place] [address] Dr. Ibis Jimenez Erythrocyte distribution width (RBC) [Ratio] 13.2 % Normal 11.0-15.0 [facility] Comment on above: Performed By: #### C VDTBH #### [facility] [address] [place] [address] Dr. Ibis Jimenez Hematocrit (Bld) [Volume fraction] 38.5 % Normal 36.0-48.0 [facility] Comment on above: Performed By: #### C VDTBH #### [facility] [address] [place] [address] Dr. Ibis Jimenez Hemoglobin (Bld) [Mass/Vol] 12.4 g/dL Normal 12.0-16.0 [facility] Comment on above: Performed By: #### C VDTBH #### [facility] [address] [place] [address] Dr. Ibis Jimenez IG # 0.20 10e3/ul Critically high 0.00-0.03 [facility] Comment on above: Performed By: #### C VDTBH #### [facility] [address] [address] [address] Ibis Jimenez IG % 1.8 % Critically high 0.0-0.5 [facility] Comment on above: Performed By: #### C VDTBH #### [facility] [address] [address] [address] Ibis Jimenez LYMPH # 0.5 103/ul Critically low 1.2-3.8 [facility] Comment on above: Performed By: #### C VDTBH #### [facility] [address] [address] [address] Ibis Jimenez Lymphocytes/100 WBC (Bld) 4.6 % Critically low 20.5-60.0 [facility] Comment on above: Performed By: #### C VDTBH #### [facility] [address] [place] [address] Dr. Ibis Jimenez MANUAL DIFF REQ NO Normal [facility] Comment on above: Performed By: #### C VDTBH #### [facility] [address] [place] [address] Dr. Ibis Jimenez MCH (RBC) [Entitic mass] 28.2 pg Normal 26.7-34.0 [facility] Comment on above: Performed By: #### C VDTBH #### [facility] [address] [place] [address] Dr. Ibis Jimenez MCHC (RBC) [Mass/Vol] 32.2 g/dL Normal 29.9-35.2 [facility] Comment on above: Performed By: #### C VDTBH #### [facility] [address] [place] [address] Dr. Ibis Jimenez MCV (RBC) [Entitic vol] 87.5 fL Normal 81.0-99.0 [facility] Comment on above: Performed By: #### C VDTBH #### [facility] [address] [place] [address] Dr. Ibis Jimenez MONO # 0.1 103/ul Critically low 0.3-0.8 [facility] Comment on above: Performed By: #### C VDTBH #### [facility] [address] [place] [address] Dr. Ibis Jimenez Monocytes/100 WBC (Bld) 1.3 % Critically low 1.7-12.0 [facility] Comment on above: Performed By: #### C VDTBH #### [facility] [address] [place] [address] Dr. Ibis Jimenez NEUT # 10.1 103/ul Critically high 1.4-6.5 [facility] Comment on above: Performed By: #### C VDTBH #### [facility] [address] [place] [address] Dr. Ibis Jimenez Neutrophils/100 WBC (Bld) 91.9 % Critically high 43.0-75.0 [facility] Comment on above: Performed By: #### C VDTBH #### [facility] [address] [place] [address] Dr. Ibis Jimenez Platelet mean volume (Bld) [Entitic vol] 9.1 fL Critically low 9.5-13.5 [facility] Comment on above: Performed By: #### C VDTBH #### [facility] [address] [place] [address] Dr. Ibis Jimenez PLT 240 103/ul Normal 150-450 [facility] Comment on above: Performed By: #### C VDTBH #### [facility] [address] [place] [address] Dr. Ibis Jimenez RBC 4.40 106/ul Normal 4.20-5.40 [facility] Comment on above: Performed By: #### C VDTBH #### [facility] [address] [place] [address] Dr. Ibis Jimenez WBC 11.0 103/ul Normal 4.0-11.0 [facility] Comment on above: Performed By: #### C VDTBH #### [facility] [address] [place] [address] Dr. Ibis Jimenez PROF 14(COMP METB)on 023 Albumin [Mass/Vol] 3.3 g/dL Critically low 3.4-5.0 [facility] Comment on above: Performed By: #### B MP #### [facility] [address] [address] [address] Ibis Jimenez Albumin/Globulin [Mass ratio] 0.9 {ratio} Normal [facility] Comment on above: Performed By: #### B MP #### [facility] [address] [address] [address] Ibis Jimenez ALP [Catalytic activity/Vol] 63 U/L Normal 46-116 [facility] Comment on above: Performed By: #### B MP #### [facility] [address] [address] [address] Ibis Jimenez ALT [Catalytic activity/Vol] 32 U/L Normal 14-59 [facility] Comment on above: Performed By: #### B MP #### [facility] [address] [place] [address] Dr. Ibis Jimenez Anion gap [Moles/Vol] 12.9 mmol/L Normal [facility] Comment on above: Performed By: #### B MP #### [facility] [address] [address] [address] Ibis Jimenez AST [Catalytic activity/Vol] 14 U/L Critically low 15-37 [facility] Comment on above: Performed By: #### B MP #### [facility] [address] [address] [address] Ibis Jimenez Bilirubin [Mass/Vol] 0.2 mg/dL Normal 0.2-1.0 [facility] Comment on above: Performed By: #### B MP #### [facility] [address] [address] [address] Ibis Jimenez Calcium [Mass/Vol] 8.5 mg/dL Normal 8.5-10.1 [facility] Comment on above: Performed By: #### B MP #### [facility] [address] [address] [address] Ibis Jimenez Chloride [Moles/Vol] 106 mmol/L Normal 98-107 [facility] Comment on above: Performed By: #### B MP #### [facility] [address] [address] [address] Ibis Jimenez CO2 [Moles/Vol] 26.6 mmol/L Normal 21.0-32.0 [facility] Comment on above: Performed By: #### B MP #### [facility] [address] [address] [address] Ibis Jimenez Creatinine [Mass/Vol] 0.89 mg/dL Normal 0.55-1.02 [facility] Comment on above: Performed By: #### B MP #### [facility] [address] [address] [address] Ibis Jimenez EGFR-AF SWAZI >60 Normal >=60 [facility] Comment on above: Performed By: #### B MP #### [facility] [address] [place] [address] Dr. Ibis Jimenez EGFR-NON AF SWAZI >60 Normal >=60 [facility] Comment on above: Performed By: #### B MP #### [facility] [address] [address] [address] Ibis Jimenez Globulin (S) [Mass/Vol] 3.6 g/dL Normal [facility] Comment on above: Performed By: #### B MP #### [facility] [address] [place] [address] Dr. Ibis Jimenez Glucose [Mass/Vol] 134 mg/dL Critically high 74-106 [facility] Comment on above: Performed By: #### B MP #### [facility] [address] [address] [address] Ibis Jimenez Potassium [Moles/Vol] 4.5 mmol/L Normal 3.5-5.1 [facility] Comment on above: Performed By: #### B MP #### [facility] [address] [place] [address] Dr. Ibis Jimenez Protein [Mass/Vol] 6.9 g/dL Normal 6.4-8.2 [facility] Comment on above: Performed By: #### B MP #### [facility] [address] [place] [address] Dr. Ibis Jimenez Sodium [Moles/Vol] 141 mmol/L Normal 136-145 [facility] Comment on above: Performed By: #### B MP #### [facility] [address] [address] [address] Ibis Jimenez Urea nitrogen [Mass/Vol] 15.0 mg/dL Normal 7.0-18.0 [facility] Comment on above: Performed By: #### B MP #### [facility] [address] [address] [address] Ibis Jimenez Urea nitrogen/Creatinine [Mass ratio] 16.9 mg/mg Normal [facility] Comment on above: Performed By: #### B MP #### [facility] [address] [address] HEAD WO CONon 05-23-2022 CT HEAD CON EXAMINATION: CT HEAD WO [facility], 05/23/2022 6:45 PM EDT HISTORY: Traumatic AND/OR [...] by: NICHOLAS MARCUS Date: 2022-05-23 19:25 Normal [facility] CT LSPINE WO CONon CT [facility] CT CERVICAL SPINE WITHOUT CONTRAST. CT LUMBAR [...] SINDY KING Date: 2022-05-23 19:41 Normal [facility] CT HEAD WO CONon 04-01-2022 CT [...] Date: 2022-03-31 22:40 Normal [facility]23 SARS-CoV-2 (COVID-19) RNA SAURABH+probe Ql (Unsp spec) Not detected Normal NOT DETECTED [facility] Comment on above: Result Comment: When [...] for this test is supported by the Broadcast Operations Manager of Health and Human Service's [...] used). Performed By: #### C VDTBH #### [facility] [address] [place] [address] Dr. Ibis Jimenez ER URINE PROFILEon 3 Bilirubin Ql (U) Negative Normal NEGATIVE [facility] Comment on above: Performed By: #### A CET, SALYC #### [facility] [address] [place] [address] Dr. Ibis Jimenez Clarity (U) CLEAR Normal CLEAR [facility] Comment on above: Performed By: #### A CET, SALYC #### [facility] [address] [place] [address] Dr. Ibis Jimenez Color (U) YELLOW Normal YELLOW [facility] Comment on above: Performed By: #### A CET, SALYC #### [facility] [address] [place] [address] Dr. Ibis Jimenez ERUAHD A micrscopic examination will be performed if indicated. Normal [facility] Comment on above: Performed By: #### A CET, SALYC #### [facility] [address] [place] [address] Dr. Ibis Jimenez Glucose Ql (U) Negative Normal NEGATIVE [facility] Comment on above: Performed By: #### A CET, SALYC #### [facility] [address] [place] [address] Dr. Ibis Jimenez Hemoglobin Ql (U) SMALL Abnormal NEGATIVE [facility] Comment on above: Performed By: #### A CET, SALYC #### [facility] [address] [place] [address] Dr. Ibis Jimenez Ketones Ql (U) Negative Normal NEGATIVE [facility] Comment on above: Performed By: #### A CET, SALYC #### [facility] [address] [place] [address] Dr. Ibis Jimenez LEUKOCYTES Negative Normal NEGATIVE [facility] Comment on above: Performed By: #### A CET, SALYC #### [facility] [address] [place] [address] Dr. Ibis Jimenez Nitrite Ql (U) Negative Normal NEGATIVE [facility] Comment on above: Performed By: #### A CET, SALYC #### [facility] [address] [place] [address] Dr. Ibis Jimenez pH (U) 5.5 [pH] Normal 5-9 [facility] Comment on above: Performed By: #### A CET, SALYC #### [facility] [address] [place] [address] Dr. Ibis Jimenez SPEC GRAVITY >=1.030 Abnormal 1.005-<=1.02 5 [facility] Comment on above: Performed By: #### A CET, SALYC #### [facility] [address] [place] [address] Dr. Ibis Jimenez UA PROTEIN Negative Normal NEGATIVE/ TRACE [facility] Comment on above: Performed By: #### A CET, SALYC #### [facility] [address] [place] [address] Dr. Ibis Jimenez UR MICRO IND INDICATED Normal [facility] Comment on above: Performed By: #### A CET, SALYC #### [facility] [address] [place] [address] Dr. Ibis Jimenez Urobilinogen Qn (U) 0.2 {Dinorah'U}/dL Normal 0.2 - 1. 0 [facility] Comment on above: Performed By: #### A CET, SALYC #### [facility] [address] [place] [address] Dr. Ibis Jimenez INFLUENZA A AND B AGon 04-01 INFLUANEGH SEE BELOW Normal [facility] Comment on above: Result Comment: Nega tive for Flu A protein angiten. Infection due to Flu A cannot be ruled out. Flu A angiten in the sample may be below the detection limit of the test. Performed By: #### A MM #### [facility] [address] [place] [address] Dr. Ibis Jimenez INFLUBNEGH SEE BELOW Normal [facility] Comment on above: Result Comment: Nega tive for Flu B protein antigen. Infection due to Flu B cannot be ruled out. Flu B antigen in the sample may be below the detection limit of the test. Performed By: #### A MM #### [facility] [address] [place] [address] Dr. Ibis Jimenez INFLUENZA A AG Negative Normal NEGATIVE SEE COMMENT [facility] Comment on above: Performed By: #### A MM #### [facility] [address] [place] [address] Dr. Ibis Jimenez INFLUENZA B AG Negative Normal NEGATIVE SEE COMMENT [facility] Comment on above: Performed By: #### A MM #### [facility] [address] [place] [address] Dr. Ibis Jimenez LACTATE/LACTIC ACIDon 2022 Lactate [Moles/Vol] 1.9 mmol/L Normal 0.4-1.9 [facility] Comment on above: Performed By: #### L ACT #### [facility] [address] [place] [address] Dr. Ibis Jimenez URINE MICROSCOPIC ONLYon BACTERIA TRACE Abnormal NONE SEEN [facility] Comment on above: Performed By: #### A CETKORI #### [facility] [address] [place] [address] Dr. Ibis Jimenez Bacteria identified Cx Nom (U) NOT INDICATED Normal [facility] Comment on above: Performed By: #### A CET, SALYC #### [facility] [address] [place] [address] Dr. Ibis Jimenez CAST NONE SEEN Normal NONE SEEN [facility] Comment on above: Performed By: #### A CET, SALYC #### [facility] [address] [place] [address] Dr. Ibis Jimenez Crystals LM Nom (Urine sed) NONE SEEN Normal NONE SEEN [facility] Comment on above: Performed By: #### A CET, SALYC #### [facility] [address] [place] [address] Dr. Ibis Jimenez Epithelial cells LM Ql (Urine sed) RARE Normal NONE SEEN /RARE [facility] Comment on above: Performed By: #### A CET, SALYC #### [facility] [address] [place] [address] Dr. Ibis Jimenez MUCOUS TRACE Abnormal NONE SEEN [facility] Comment on above: Performed By: #### A CET, SALYC #### [facility] [address] [place] [address] Dr. Ibis Jimenez RBC 0-2 Normal 0-2 [facility] Comment on above: Performed By: #### A CET, SALYC #### [facility] [address] [place] [address] Dr. Ibis Jimenez WBC NONE SEEN Normal NONE SEEN [facility] Comment on above: Performed By: #### A CET, SALYC #### [facility] [address] [place] [address] Dr. Ibis Jimenez AMMONIAon 03-31-2022 Ammonia (P) [Moles/Vol] 31 umol/L Normal 11-32 [facility] Comment on above: Performed By: #### A MM #### [facility] [address] [place] [address] Dr. Ibis Jimenez CBC AUTO DIFFon 03-31-2022 BASO # 0.0 103/ul Normal 0.0-0.1 [facility] Comment on above: Performed By: #### A MM #### [facility] [address] [place] [address] Dr. Ibis Jimenez Basophils/100 WBC (Bld) 0.4 % Normal 0.2-2.0 [facility] Comment on above: Performed By: #### A MM #### [facility] [address] [place] [address] Dr. Ibis Jimenez EO # 0.5 103/ul Normal 0.0-0.7 [facility] Comment on above: Performed By: #### A MM #### [facility] [address] [place] [address] Dr. Ibis Jimenez Eosinophils/100 WBC (Bld) 6.4 % Normal 0.9-7.0 [facility] Comment on above: Performed By: #### A MM #### [facility] [address] [place] [address] Dr. Ibis Jimenez Erythrocyte distribution width (RBC) [Ratio] 12.8 % Normal 11.0-15.0 [facility] Comment on above: Performed By: #### A MM #### [facility] [address] [place] [address] Dr. Ibis Jimenez Hematocrit (Bld) [Volume fraction] 36.6 % Normal 36.0-48.0 [facility] Comment on above: Performed By: #### A MM #### [facility] [address] [place] [address] Dr. Ibis Jimenez Hemoglobin (Bld) [Mass/Vol] 12.5 g/dL Normal 12.0-16.0 [facility] Comment on above: Performed By: #### A MM #### [facility] [address] [place] [address] Dr. Ibis Jimenez IG # 0.02 10e3/ul Normal 0.00-0.03 [facility] Comment on above: Performed By: #### A MM #### [facility] [address] [place] [address] Dr. Ibis Jimenez IG % 0.3 % Normal 0.0-0.5 [facility] Comment on above: Performed By: #### A MM #### [facility] [address] [place] [address] Dr. Ibis Jimenez LYMPH # 2.0 103/ul Normal 1.2-3.8 [facility] Comment on above: Performed By: #### A MM #### [facility] [address] [place] [address] Dr. Ibis Jimenez Lymphocytes/100 WBC (Bld) 25.0 % Normal 20.5-60.0 [facility] Comment on above: Performed By: #### A MM #### [facility] [address] [place] [address] Dr. Ibis Jimenez MANUAL DIFF REQ NO Normal [facility] Comment on above: Performed By: #### A MM #### [facility] [address] [place] [address] Dr. Ibis Jimenez MCH (RBC) [Entitic mass] 29.5 pg Normal 26.7-34.0 [facility] Comment on above: Performed By: #### A MM #### [facility] [address] [place] [address] Dr. Ibis Jimenez MCHC (RBC) [Mass/Vol] 34.2 g/dL Normal 29.9-35.2 [facility] Comment on above: Performed By: #### A MM #### [facility] [address] [place] [address] Dr. Ibis Jimenez MCV (RBC) [Entitic vol] 86.3 fL Normal 81.0-99.0 [facility] Comment on above: Performed By: #### A MM #### [facility] [address] [place] [address] Dr. Ibis Jimenez MONO # 0.4 103/ul Normal 0.3-0.8 [facility] Comment on above: Performed By: #### A MM #### [facility] [address] [place] [address] Dr. Ibis Jimenez Monocytes/100 WBC (Bld) 5.6 % Normal 1.7-12.0 [facility] Comment on above: Performed By: #### A MM #### [facility] [address] [place] [address] Dr. Ibis Jimenez NEUT # 4.9 103/ul Normal 1.4-6.5 [facility] Comment on above: Performed By: #### A MM #### [facility] [address] [place] [address] Dr. Ibis Jimenez Neutrophils/100 WBC (Bld) 62.3 % Normal 43.0-75.0 [facility] Comment on above: Performed By: #### A MM #### [facility] [address] [place] [address] Dr. Ibis Jimenez Platelet mean volume (Bld) [Entitic vol] 9.5 fL Normal 9.5-13.5 [facility] Comment on above: Performed By: #### A MM #### [facility] [address] [place] [address] Dr. Ibis Jimenez PLT 246 103/ul Normal 150-450 [facility] Comment on above: Performed By: #### A MM #### [facility] [address] [place] [address] Dr. Ibis Jimenez RBC 4.24 106/ul Normal 4.20-5.40 [facility] Comment on above: Performed By: #### A MM #### [facility] [address] [place] [address] Dr. Ibis Jimenez WBC 7.8 103/ul Normal 4.0-11.0 [facility] Comment on above: Performed By: #### A MM #### [facility] [address] [place] [address] Dr. Ibis Jimenez CULTURE BLOODon 03-31-2022 Microscopic examination of blood, culture Culture Observations: NO GROWTH AT 5 DAYS. Normal [facility] Comment on above: Performed By: #### B LDCX2 #### [facility] [address] [place] [address] Dr. Ibis Jimenez Microscopic examination of blood, culture Culture Observations: NO GROWTH AT 5 DAYS. Normal [facility] Comment on above: Performed By: #### B MP #### [facility] [address] [place] [address] Dr. Ibis Jimenez LACTATE/LACTIC ACIDon 2022 Lactate [Moles/Vol] 2.8 mmol/L Critically high 0.4-1.9 [facility] Comment on above: Performed By: #### C VDTBH #### [facility] [address] [place] [address] Dr. Ibis Jimenez PROF 14(COMP METB)on 023 Albumin [Mass/Vol] 3.4 g/dL Normal 3.4-5.0 [facility] Comment on above: Performed By: #### B MP #### [facility] [address] [place] [address] Dr. Ibis Jimenez Albumin/Globulin [Mass ratio] 1.2 {ratio} Normal [facility] Comment on above: Performed By: #### B MP #### [facility] [address] [place] [address] Dr. Ibis Jimenez ALP [Catalytic activity/Vol] 85 U/L Normal 46-116 [facility] Comment on above: Performed By: #### B MP #### [facility] [address] [place] [address] Dr. Ibis Jimenez ALT [Catalytic activity/Vol] 18 U/L Normal 14-59 [facility] Comment on above: Performed By: #### B MP #### [facility] [address] [place] [address] Dr. Ibis Jimenez Anion gap [Moles/Vol] 13.2 mmol/L Normal [facility] Comment on above: Performed By: #### B MP #### [facility] [address] [place] [address] Dr. Ibis Jimenez AST [Catalytic activity/Vol] 11 U/L Critically low 15-37 [facility] Comment on above: Performed By: #### B MP #### [facility] [address] [place] [address] Dr. Ibis Jimenez Bilirubin [Mass/Vol] 0.2 mg/dL Normal 0.2-1.0 [facility] Comment on above: Performed By: #### B MP #### [facility] [address] [place] [address] Dr. Ibis Jimenez Calcium [Mass/Vol] 8.6 mg/dL Normal 8.5-10.1 [facility] Comment on above: Performed By: #### B MP #### [facility] [address] [place] [address] Dr. Ibis Jimenez Chloride [Moles/Vol] 105 mmol/L Normal 98-107 [facility] Comment on above: Performed By: #### B MP #### [facility] [address] [address] [address] Ibis Jimenez CO2 [Moles/Vol] 25.1 mmol/L Normal 21.0-32.0 [facility] Comment on above: Performed By: #### B MP #### [facility] [address] [address] [address] Ibis Jimenez Creatinine [Mass/Vol] 0.80 mg/dL Normal 0.55-1.02 [facility] Comment on above: Performed By: #### B MP #### [facility] [address] [place] [address] Dr. Ibis Jimenez EGFR-AF SWAZI >60 Normal >=60 [facility] Comment on above: Performed By: #### B MP #### [facility] [address] [address] [address] Ibis Jimenez EGFR-NON AF SWAZI >60 Normal >=60 [facility] Comment on above: Performed By: #### B MP #### [facility] [address] [address] [address] Ibis Jimenez Globulin (S) [Mass/Vol] 2.9 g/dL Normal T [facility] Comment on above: Performed By: #### B MP #### [facility] [address] [address] [address] Ibis Jimenez Glucose [Mass/Vol] 99 mg/dL Normal 74-106 [facility] Comment on above: Performed By: #### B MP #### [facility] [address] [address] [address] Ibis Jimenez Potassium [Moles/Vol] 3.3 mmol/L Critically low 3.5-5.1 [facility] Comment on above: Performed By: #### B MP #### [facility] [address] [address] [address] Ibis Jimenez Protein [Mass/Vol] 6.3 g/dL Critically low 6.4-8.2 [facility] e [facility] Comment on above: Performed By: #### B MP #### [facility] [address] [place] [address] Dr. Ibis Jimenez Sodium [Moles/Vol] 140 mmol/L Normal 136-145 [facility] Comment on above: Performed By: #### B MP #### [facility] [address] [place] [address] Dr. Ibis Jimenez Urea nitrogen [Mass/Vol] 10.0 mg/dL Normal 7.0-18.0 [facility] Comment on above: Performed By: #### B MP #### [facility] [address] [place] [address] Dr. Ibis Jimenez Urea nitrogen/Creatinine [Mass ratio] 12.5 mg/mg Normal [facility] Comment on above: Performed By: #### B MP #### [facility] [address] [place] [address] Dr. Ibis Jimenez CBC AUTO DIFFon 01-14-2022 BASO # 0.0 103/ul Normal 0.0-0.1 [facility] Comment on above: Performed By: #### A MM #### [facility] [address] [place] [address] Dr. Ibis Jimenez Basophils/100 WBC (Bld) 0.3 % Normal 0.2-2.0 [facility] Comment on above: Performed By: #### A MM #### [facility] [address] [place] [address] Dr. Ibis Jimenez EO # 0.2 103/ul Normal 0.0-0.7 [facility] Comment on above: Performed By: #### A MM #### [facility] [address] [place] [address] Dr. Ibis Jimenez Eosinophils/100 WBC (Bld) 2.7 % Normal 0.9-7.0 [facility] Comment on above: Performed By: #### A MM #### [facility] [address] [place] [address] Dr. Ibis Jimenez Erythrocyte distribution width (RBC) [Ratio] 13.2 % Normal 11.0-15.0 [facility] Comment on above: Performed By: #### A MM #### [facility] [address] [place] [address] Dr. Ibis Jimenez Hematocrit (Bld) [Volume fraction] 35.7 % Critically low 36.0-48.0 [facility] Comment on above: Performed By: #### A MM #### [facility] [address] [place] [address] Dr. Ibis Jimenez Hemoglobin (Bld) [Mass/Vol] 12.2 g/dL Normal 12.0-16.0 [facility] Comment on above: Performed By: #### A MM #### [facility] [address] [place] [address] Dr. Ibis Jimenez IG # 0.04 10e3/ul Critically high 0.00-0.03 [facility] Comment on above: Performed By: #### A MM #### [facility] [address] [place] [address] Dr. Ibis Jimenez IG % 0.5 % Normal 0.0-0.5 [facility] Comment on above: Performed By: #### A MM #### [facility] [address] [place] [address] Dr. Ibis Jimenez LYMPH # 2.1 103/ul Normal 1.2-3.8 [facility] Comment on above: Performed By: #### A MM #### [facility] [address] [place] [address] Dr. Ibis Jimenez Lymphocytes/100 WBC (Bld) 27.3 % Normal 20.5-60.0 [facility] Comment on above: Performed By: #### A MM #### [facility] [address] [place] [address] Dr. Ibis Jimenez MANUAL DIFF REQ NO Normal [facility] Comment on above: Performed By: #### A MM #### [facility] [address] [place] [address] Dr. Ibis Jimenez MCH (RBC) [Entitic mass] 29.0 pg Normal 26.7-34.0 [facility] Comment on above: Performed By: #### A MM #### [facility] [address] [address] [address] Ibis Jimenez MCHC (RBC) [Mass/Vol] 34.2 g/dL Normal 29.9-35.2 [facility] Comment on above: Performed By: #### A MM #### [facility] [address] [address] [address] Ibis Jimenez MCV (RBC) [Entitic vol] 84.8 fL Normal 81.0-99.0 [facility] Comment on above: Performed By: #### A MM #### [facility] [address] [place] [address] Dr. Ibis Jimenez MONO # 0.7 103/ul Normal 0.3-0.8 [facility] Comment on above: Performed By: #### A MM #### [facility] [address] [place] [address] Dr. Ibis Jimenez Monocytes/100 WBC (Bld) 8.7 % Normal 1.7-12.0 [facility] Comment on above: Performed By: #### A MM #### [facility] [address] [place] [address] Dr. Ibis Jimenez NEUT # 4.7 103/ul Normal 1.4-6.5 [facility] Comment on above: Performed By: #### A MM #### [facility] [address] [place] [address] Dr. Ibis Jimenez Neutrophils/100 WBC (Bld) 60.5 % Normal 43.0-75.0 [facility] Comment on above: Performed By: #### A MM #### [facility] [address] [place] [address] Dr. Ibis Jimenez Platelet mean volume (Bld) [Entitic vol] 9.6 fL Normal 9.5-13.5 [facility] Comment on above: Performed By: #### A MM #### [facility] [address] [place] [address] Dr. Ibis Jimenez PLT 212 103/ul Normal 150-450 [facility] Comment on above: Performed By: #### A MM #### [facility] [address] [place], [place] [address] Dr. Ibis Jimenez RBC 4.21 106/ul Normal 4.20-5.40 [facility] Comment on above: Performed By: #### A MM #### [facility] [address] [place], [place] [address] Dr. Ibis Jimenez WBC 7.7 103/ul Normal 4.0-11.0 [facility] Comment on above: Performed By: #### A MM #### [facility] [address] [place], [place] [address] ABD/PELV W CONon [...] Date: 2022-01-14 20:01 Normal [facility] ER URINE PROFILEon 2 Bilirubin Ql (U) Negative Normal NEGATIVE [facility] Comment on above: Performed By: #### A CET, SALYC #### [facility] [address] [place] [address] Dr. Ibis Jimenez Clarity (U) CLEAR Normal CLEAR [facility] Comment on above: Performed By: #### A CET, SALYC #### [facility] [address] [place] [address] Dr. Ibis Jimenez Color (U) LT. YELLOW Normal YELLOW [facility] Comment on above: Performed By: #### A CET, SALYC #### [facility] [address] [place] [address] Dr. Ibis RODRIGUEZ A micrscopic examination will be performed if indicated. Normal [facility] Comment on above: Performed By: #### A CET, SALYC #### [facility] [address] [place] [address] Dr. Ibis Jimenez Glucose Ql (U) Negative Normal NEGATIVE [facility] Comment on above: Performed By: #### A CET, SALYC #### [facility] [address] [place] [address] Dr. Ibis Jimenez Hemoglobin Ql (U) Negative Normal NEGATIVE [facility] Comment on above: Performed By: #### A CET, SALYC #### [facility] [address] [address] [address] Ibis Jimenez Ketones Ql (U) Negative Normal NEGATIVE [facility] Comment on above: Performed By: #### A CET, SALYC #### [facility] [address] [place] [address] Dr. Ibis Jimenez LEUKOCYTES TRACE Abnormal NEGATIVE [facility] Comment on above: Performed By: #### A CET, SALYC #### [facility] [address] [place] [address] Dr. Ibis Jimenez Nitrite Ql (U) Negative Normal NEGATIVE [facility] Comment on above: Performed By: #### A CET, SALYC #### [facility] [address] [place] [address] Dr. Ibis Jimenez pH (U) 5.5 [pH] Normal 5-9 [facility] Comment on above: Performed By: #### A CET, SALYC #### [facility] [address] [place] [address] Dr. Ibis Jimenez SPEC GRAVITY 1.025 Normal 1.005-<=1.02 5 [facility] Comment on above: Performed By: #### A CET, SALYC #### [facility] [address] [place] [address] Dr. Ibis Jimenez UA PROTEIN Negative Normal NEGATIVE/ TRACE [facility] Comment on above: Performed By: #### A CET, SALYC #### [facility] [address] [place] [address] Dr. Ibis Jimenez UR MICRO IND INDICATED Normal [facility] Comment on above: Performed By: #### A CET, SALYC #### [facility] [address] [place] [address] Dr. Ibis Jimenez Urobilinogen Qn (U) 0.2 {Dinorah'U}/dL Normal 0.2 - 1. 0 [facility] Comment on above: Performed By: #### A CET, SALYC #### [facility] [address] [place] [address] Dr. Ibis Jimenez URon 01-14-2022 , QUAL Negative Normal NEGATIVE [facility] Comment on above: Performed By: #### A CET, SALYC #### [facility] [address] [place] [address] Dr. Ibis Jimenez PROF CHEM 8 (BAS METB)on Anion gap [Moles/Vol] 9.9 mmol/L Normal [facility] Comment on above: Performed By: #### B MP #### [facility] [address] [place] [address] Dr. Ibis Jimenez Calcium [Mass/Vol] 8.6 mg/dL Normal 8.5-10.1 [facility] Comment on above: Performed By: #### B MP #### [facility] [address] [place] [address] Dr. Ibis Jimenez Chloride [Moles/Vol] 105 mmol/L Normal 98-107 [facility] Comment on above: Performed By: #### B MP #### [facility] [address] [place] [address] Dr. Ibis Jimenez CO2 [Moles/Vol] 27.5 mmol/L Normal 21.0-32.0 [facility] Comment on above: Performed By: #### B MP #### [facility] [address] [place] [address] Dr. Ibis Jimenez Creatinine [Mass/Vol] 0.70 mg/dL Normal 0.55-1.02 [facility] Comment on above: Performed By: #### B MP #### [facility] [address] [place] [address] Dr. Ibis Jimenez EGFR-AF SWAZI >60 Normal >=60 [facility] Comment on above: Performed By: #### B MP #### [facility] [address] [place] [address] Dr. Ibis Jimenez EGFR-NON AF SWAZI >60 Normal >=60 [facility] Comment on above: Performed By: #### B MP #### [facility] [address] [place] [address] Dr. Ibis Jimenez Glucose [Mass/Vol] 83 mg/dL Normal 74-106 [facility] Comment on above: Performed By: #### B MP #### [facility] [address] [place] [address] Dr. Ibis Jimenez Potassium [Moles/Vol] 4.4 mmol/L Normal 3.5-5.1 [facility] Comment on above: Performed By: #### B MP #### [facility] [address] [place] [address] Dr. Ibis Jimenez Sodium [Moles/Vol] 138 mmol/L Normal 136-145 [facility] Comment on above: Performed By: #### B MP #### [facility] [address] [place] [address] Dr. Ibis Jimenez Urea nitrogen [Mass/Vol] 13.0 mg/dL Normal 7.0-18.0 [facility] Comment on above: Performed By: #### B MP #### [facility] [address] [place] [address] Dr. Ibis Jimenez Urea nitrogen/Creatinine [Mass ratio] 18.6 mg/mg Normal [facility] Comment on above: Performed By: #### B MP #### [facility] [address] [place] [address] Dr. Ibis Jimenez URINE MICROSCOPIC ONLYon BACTERIA NONE SEEN Normal NONE SEEN [facility] Comment on above: Performed By: #### A CET, SALYC #### [facility] [address] [place] [address] Dr. Ibis Jimenez Bacteria identified Cx Nom (U) NOT INDICATED Normal [facility] Comment on above: Performed By: #### A CET, SALYC #### [facility] [address] [place] [address] Dr. Ibis Jimenez CAST NONE SEEN Normal NONE SEEN [facility] Comment on above: Performed By: #### A CET, SALYC #### [facility] [address] [place] [address] Dr. Ibis Jiemnez Crystals LM Nom (Urine sed) NONE SEEN Normal NONE SEEN [facility] Comment on above: Performed By: #### A CET, SALYC #### [facility] [address] [place] [address] Dr. Ibis Jimenez Epithelial cells LM Ql (Urine sed) FEW Abnormal NONE SEEN /RARE [facility] Comment on above: Performed By: #### A CET, SALYC #### [facility] [address] [place] [address] Dr. Ibis Jimenez MUCOUS NONE SEEN Normal NONE SEEN [facility] Comment on above: Performed By: #### A CET, SALYC #### [facility] [address] [place] [address] Dr. Ibis Jimenez RBC NONE SEEN Abnormal 0-2 [facility] Comment on above: Performed By: #### A CET, SALYC #### [facility] [address] [place] [address] Dr. Ibis Jimenez WBC NONE SEEN Normal NONE SEEN [facility] Comment on above: Performed By: #### A CET, SALYC #### [facility] [address] [place] [address] Dr. Ibis Jimenez CBC AUTO DIFFon 01-07-2022 BASO # 0.0 103/ul Normal 0.0-0.1 [facility] Comment on above: Performed By: #### A CET, SALYC #### [facility] [address] [place] [address] Dr. Ibis Jimenez Basophils/100 WBC (Bld) 0.2 % Normal 0.2-2.0 [facility] Comment on above: Performed By: #### A CET, SALYC #### [facility] [address] [place] [address] Dr. Ibis Jimenez EO # 0.0 103/ul Normal 0.0-0.7 [facility] Comment on above: Performed By: #### A CET, SALYC #### [facility] [address] [place] [address] Dr. Ibis Jimenez Eosinophils/100 WBC (Bld) 0.4 % Critically low 0.9-7.0 [facility] Comment on above: Performed By: #### A CET, SALYC #### [facility] [address] [place] [address] Dr. Ibis Jimenez Erythrocyte distribution width (RBC) [Ratio] 13.2 % Normal 11.0-15.0 [facility] Comment on above: Performed By: #### A CET, SALYC #### [facility] [address] [place] [address] Dr. Ibis Jimenez Hematocrit (Bld) [Volume fraction] 39.7 % Normal 36.0-48.0 [facility] Comment on above: Performed By: #### A CET, SALYC #### [facility] [address] [place] [address] Dr. Ibis Jimenez Hemoglobin (Bld) [Mass/Vol] 13.4 g/dL Normal 12.0-16.0 [facility] Comment on above: Performed By: #### A CET, SALYC #### [facility] [address] [place] [address] Dr. Ibis Jimenez IG # 0.06 10e3/ul Critically high 0.00-0.03 [facility] Comment on above: Performed By: #### A CET, SALYC #### [facility] [address] [place] [address] Dr. Ibis Jimenez IG % 0.5 % Normal 0.0-0.5 [facility] Comment on above: Performed By: #### A CET, SALYC #### [facility] [address] [place] [address] Dr. Ibis Jimenez LYMPH # 2.6 103/ul Normal 1.2-3.8 [facility] Comment on above: Performed By: #### A CET, SALYC #### [facility] [address] [place] [address] Dr. Ibis Jimenez Lymphocytes/100 WBC (Bld) 23.8 % Normal 20.5-60.0 [facility] Comment on above: Performed By: #### A CET, SALYC #### [facility] [address] [place] [address] Dr. Ibis Jimenez MANUAL DIFF REQ NO Normal [facility] Comment on above: Performed By: #### A CET, SALYC #### [facility] [address] [place] [address] Dr. Ibis Jimenez MCH (RBC) [Entitic mass] 28.8 pg Normal 26.7-34.0 [facility] Comment on above: Performed By: #### A CET, SALYC #### [facility] [address] [place] [address] Dr. Ibis Jimenez MCHC (RBC) [Mass/Vol] 33.8 g/dL Normal 29.9-35.2 [facility] Comment on above: Performed By: #### A CET, SALYC #### [facility] [address] [place] [address] Dr. Ibis Jimenez MCV (RBC) [Entitic vol] 85.2 fL Normal 81.0-99.0 [facility] Comment on above: Performed By: #### A CET, SALYC #### [facility] [address] [place] [address] Dr. Ibis Jimenez MONO # 0.8 103/ul Normal 0.3-0.8 [facility] Comment on above: Performed By: #### A CET, SALYC #### [facility] [address] [place] [address] Dr. Ibis Jimenez Monocytes/100 WBC (Bld) 7.7 % Normal 1.7-12.0 [facility] Comment on above: Performed By: #### A CET, SALYC #### [facility] [address] [place] [address] Dr. Ibis Jimenez NEUT # 7.4 103/ul Critically high 1.4-6.5 [facility] Comment on above: Performed By: #### A CET, SALYC #### [facility] [address] [place] [address] Dr. Ibis Jimenez Neutrophils/100 WBC (Bld) 67.4 % Normal 43.0-75.0 [facility] Comment on above: Performed By: #### A CET, SALYC #### [facility] [address] [place] [address] Dr. Ibis Jimenez Platelet mean volume (Bld) [Entitic vol] 9.8 fL Normal 9.5-13.5 [facility] Comment on above: Performed By: #### A CET, SALYC #### [facility] [address] [place] [address] Dr. Ibis Jimenez PLT 261 103/ul Normal 150-450 [facility] Comment on above: Performed By: #### A CET, SALYC #### [facility] [address] [place] [address] Dr. Ibis Jimenez RBC 4.66 106/ul Normal 4.20-5.40 [facility] Comment on above: Performed By: #### A CET, SALYC #### [facility] [address] [address] [address] Ibis Jimenez WBC 10.9 103/ul Normal 4.0-11.0 [facility] Comment on above: Performed By: #### A KORI DAVIS #### [facility] [address] [address] [address] Ibis Jimenez PROF CHEM 8 (BAS METB)on Anion gap [Moles/Vol] 14.1 mmol/L Normal [facility] Comment on above: Performed By: #### B MP #### [facility] [address] [address] [address] Ibis Jimenez Calcium [Mass/Vol] 8.5 mg/dL Normal 8.5-10.1 [facility] Comment on above: Performed By: #### B MP #### [facility] [address] [place] [address] Dr. Ibis Jimenez Chloride [Moles/Vol] 103 mmol/L Normal 98-107 [facility] Comment on above: Performed By: #### B MP #### [facility] [address] [address] [address] Ibis Jimenez CO2 [Moles/Vol] 22.5 mmol/L Normal 21.0-32.0 [facility] Comment on above: Performed By: #### B MP #### [facility] [address] [address] [address] Ibis Jimenez Creatinine [Mass/Vol] 0.64 mg/dL Normal 0.55-1.02 [facility] Comment on above: Performed By: #### B MP #### [facility] [address] [address] [address] Ibis Jimenez EGFR-AF SWAZI >60 Normal >=60 [facility] Comment on above: Performed By: #### B MP #### [facility] [address] [address] [address] Ibis Jimenez EGFR-NON AF SWAZI >60 Normal >=60 [facility] Comment on above: Performed By: #### B MP #### [facility] [address] [address] [address] Ibis Jimenez Glucose [Mass/Vol] 141 mg/dL Critically high 74-106 [facility] Comment on above: Performed By: #### B MP #### [facility] [address] [place] [address] Dr. Ibis Jimenez Potassium [Moles/Vol] 3.6 mmol/L Normal 3.5-5.1 [facility] Comment on above: Performed By: #### B MP #### [facility] [address] [place] [address] Dr. Ibis Jimenez Sodium [Moles/Vol] 136 mmol/L Normal 136-145 [facility] Comment on above: Performed By: #### B MP #### [facility] [address] [place] [address] Dr. Ibis Jimenez Urea nitrogen [Mass/Vol] 16.0 mg/dL Normal 7.0-18.0 [facility] Comment on above: Performed By: #### B MP #### [facility] [address] [place] [address] Dr. Ibis Jimenez Urea nitrogen/Creatinine [Mass ratio] 25.0 mg/mg Normal [facility] Comment on above: Performed By: #### B MP #### [facility] [address] [place] [address] Dr. Ibis Jimenez CBC AUTO DIFFon 11-04-2021 BASO # 0.0 103/ul Normal 0.0-0.1 [facility] Comment on above: Performed By: #### A CET SALYC #### [facility] [address] [place] [address] Dr. Ibis Jimenez Basophils/100 WBC (Bld) 0.4 % Normal 0.2-2.0 [facility] Comment on above: Performed By: #### A CET, SALYC #### [facility] [address] [place] [address] Dr. Ibis Jimenez EO # 0.2 103/ul Normal 0.0-0.7 [facility] Comment on above: Performed By: #### A CET, SALYC #### [facility] [address] [place] [address] Dr. Ibis Jimenez Eosinophils/100 WBC (Bld) 4.1 % Normal 0.9-7.0 [facility] Comment on above: Performed By: #### A CET, SALYC #### [facility] [address] [place] [address] Dr. Ibis Jimenez Erythrocyte distribution width (RBC) [Ratio] 13.2 % Normal 11.0-15.0 [facility] Comment on above: Performed By: #### A CET, SALYC #### [facility] [address] [place] [address] Dr. Ibis Jimenez Hematocrit (Bld) [Volume fraction] 34.3 % Critically low 36.0-48.0 [facility] Comment on above: Performed By: #### A CET, SALYC #### [facility] [address] [place] [address] Dr. Ibis Jimenez Hemoglobin (Bld) [Mass/Vol] 11.5 g/dL Critically low 12.0-16.0 [facility] Comment on above: Performed By: #### A CET, SALYC #### [facility] [address] [place] [address] Dr. Ibis Jimenez IG # 0.01 10e3/ul Normal 0.00-0.03 [facility] Comment on above: Performed By: #### A CET, SALYC #### [facility] [address] [place] [address] Dr. Ibis Jimenez IG % 0.2 % Normal 0.0-0.5 [facility] Comment on above: Performed By: #### A CET, SALYC #### [facility] [address] [place] [address] Dr. Ibis Jimenez LYMPH # 1.5 103/ul Normal 1.2-3.8 [facility] Comment on above: Performed By: #### A CET, SALYC #### [facility] [address] [place] [address] Dr. Ibis Jimenez Lymphocytes/100 WBC (Bld) 26.4 % Normal 20.5-60.0 [facility] Comment on above: Performed By: #### A CET, SALYC #### [facility] [address] [place] [address] Dr. Ibis Jimenez MANUAL DIFF REQ NO Normal [facility] Comment on above: Performed By: #### A CET, SALYC #### [facility] [address] [place] [address] Dr. Ibis Jimenez MCH (RBC) [Entitic mass] 28.8 pg Normal 26.7-34.0 [facility] Comment on above: Performed By: #### A CET, SALYC #### [facility] [address] [place] [address] Dr. Ibis Jimenez MCHC (RBC) [Mass/Vol] 33.5 g/dL Normal 29.9-35.2 [facility] Comment on above: Performed By: #### A CET, SALYC #### [facility] [address] [place] [address] Dr. Ibis Jimenez MCV (RBC) [Entitic vol] 86.0 fL Normal 81.0-99.0 [facility] Comment on above: Performed By: #### A CET, SALYC #### [facility] [address] [place] [address] Dr. Ibis Jimenez MONO # 0.5 103/ul Normal 0.3-0.8 [facility] Comment on above: Performed By: #### A CET, SALYC #### [facility] [address] [place] [address] Dr. Ibis Jimenez Monocytes/100 WBC (Bld) 8.2 % Normal 1.7-12.0 [facility] Comment on above: Performed By: #### A CET, SALYC #### [facility] [address] [place] [address] Dr. Ibis Jimenez NEUT # 3.4 103/ul Normal 1.4-6.5 [facility] Comment on above: Performed By: #### A CET, SALYC #### [facility] [address] [place] [address] Dr. Ibis Jimenez Neutrophils/100 WBC (Bld) 60.7 % Normal 43.0-75.0 [facility] Comment on above: Performed By: #### A CET SALYC #### [facility] [address] [place] [address] Dr. Ibis Jimenez Platelet mean volume (Bld) [Entitic vol] 9.9 fL Normal 9.5-13.5 [facility] Comment on above: Performed By: #### A CET, SALYC #### [facility] [address] [place] [address] Dr. Ibis Jimenez PLT 222 103/ul Normal 150-450 [facility] Comment on above: Performed By: #### A CET, SALYC #### [facility] [address] [place] [address] Dr. Ibis Jimenez RBC 3.99 106/ul Critically low 4.20-5.40 [facility] Comment on above: Performed By: #### A CET SALYC #### [facility] [address] [place] [address] Dr. Iibs Jimenez WBC 5.6 103/ul Normal 4.0-11.0 [facility] Comment on above: Performed By: #### A CET SALYC #### [facility] [address] [place] [address] Dr. Ibis Jimenez PROF CHEM 8 (BAS METB)on Anion gap [Moles/Vol] 10.5 mmol/L Normal [facility] Comment on above: Performed By: #### B MP #### [facility] [address] [place] [address] Dr. Ibis Jimenez Calcium [Mass/Vol] 8.8 mg/dL Normal 8.5-10.1 [facility] Comment on above: Performed By: #### B MP #### [facility] [address] [place] [address] Dr. Ibis Jimenez Chloride [Moles/Vol] 105 mmol/L Normal 98-107 [facility] Comment on above: Performed By: #### B MP #### [facility] [address] [place] [address] Dr. Ibis Jimenez CO2 [Moles/Vol] 24.9 mmol/L Normal 21.0-32.0 [facility] Comment on above: Performed By: #### B MP #### [facility] [address] [address] [address] Ibis Jimenez Creatinine [Mass/Vol] 0.71 mg/dL Normal 0.55-1.02 [facility] Comment on above: Performed By: #### B MP #### [facility] [address] [address] [address] Ibis Jimenez EGFR-AF SWAZI >60 Normal >=60 [facility] Comment on above: Performed By: #### B MP #### [facility] [address] [place] [address] Dr. Ibis Jimenez EGFR-NON AF SWAZI >60 Normal >=60 [facility] Comment on above: Performed By: #### B MP #### [facility] [address] [place] [address] Dr. Ibis Jimenez Glucose [Mass/Vol] 103 mg/dL Normal 74-106 [facility] Comment on above: Performed By: #### B MP #### [facility] [address] [place] [address] Dr. Ibis Jimenez Potassium [Moles/Vol] 3.4 mmol/L Critically low 3.5-5.1 [facility] Comment on above: Performed By: #### B MP #### [facility] [address] [place] [address] Dr. Ibis Jimenez Sodium [Moles/Vol] 137 mmol/L Normal 136-145 [facility] Comment on above: Performed By: #### B MP #### [facility] [address] [address] [address] Ibis Jimenez Urea nitrogen [Mass/Vol] 17.0 mg/dL Normal 7.0-18.0 [facility] Comment on above: Performed By: #### B MP #### [facility] [address] [place] [address] Dr. Ibsi Jimenez Urea nitrogen/Creatinine [Mass ratio] 23.9 mg/mg Normal [facility] Comment on above: Performed By: #### B MP #### [facility] [address] [place], [place] [address] Dr. Ibis Jimenez Basic Metab w/rfx MGon 10-20 (cont.) Normal [facility] Comment on above: Result Comment: Aver age GFR for 20-29 years old: 116 mL/min/1.73sq m Chronic Kidney Disease: <60 mL/min/1.73sq m Kidney failure: <15 mL/min/1.73sq m eGFR calculated using average adult body mass. Additional eGFR calculator available at: http://www.[employer]/multiple_crcl_2011.htm Performed By: #### B MPX #### [address] [address] [employer] Supervisor: Tavon Nicole MD Anion gap [Moles/Vol] 10 mmol/L Normal 9-17 [facility] Comment on above: Performed By: #### B MPX #### [address] [address] [employer] Supervisor: Tavon Nicole MD Calcium [Mass/Vol] 7.8 mg/dL Low 8.6-10.4 [facility] Comment on above: Performed By: #### B MPX #### [address] [address] [employer] Supervisor: Tavon Nicole MD Chloride [Moles/Vol] 109 mmol/L High 98-107 [facility] Comment on above: Performed By: #### B MPX #### [address] [address] [employer] Supervisor: Tavon Nicole MD CO2 [Moles/Vol] 20 mmol/L Normal [facility] Comment on above: Performed By: #### B MPX #### [address] [address] [employer] Supervisor: Tavon Nicole MD Creatinine [Mass/Vol] 0.45 mg/dL Low 0.50-0.90 [facility] Comment on above: Performed By: #### B MPX #### [address] [address] [employer] Supervisor: Tavon Nicole MD GFR, Amer >60 Normal >60 [facility] Comment on above: Performed By: #### B MPX #### [address] [address] [employer] Supervisor: Tavon Nicole MD GFR,non Amer >60 Normal >60 [facility] Comment on above: Performed By: #### B MPX #### [address] [address] [employer] Supervisor: Tavon Nicole MD Glucose [Mass/Vol] 84 mg/dL Normal 70-99 [facility] Comment on above: Performed By: #### B MPX #### [address] [address] [employer] Supervisor: Tavon Nicole MD Potassium [Moles/Vol] 4.1 mmol/L Normal 3.7-5.3 [facility] Comment on above: Result Comment: SPEC IMEN SLIGHTLY HEMOLYZED, RESULTS MAY BE ADVERSELY AFFECTED. Performed By: #### B MPX #### [address] [address] [employer] Supervisor: Tavon Nicole MD Sodium [Moles/Vol] 139 mmol/L Normal 135-144 [facility] Comment on above: Performed By: #### B MPX #### [address] [address] [employer] Supervisor: Tavon Nicole MD Urea nitrogen [Mass/Vol] 8 mg/dL Normal 6-20 [facility] Comment on above: Performed By: #### B MPX #### [facility] [address] [place] [address] [employer] Super[employer]: Tavon Nicole MD Basic Metabolic Panel w/ Ref rossi to MGon 10-20-2021 Anion gap [Moles/Vol] 10 mmol/L 9 - 17 mmol/L [facility] Calcium [Mass/Vol] 7.8 mg/dL Low 8.6 - 10. 4 mg/dL [facility] Chloride [Moles/Vol] 109 mmol/L High 98 - 10 7 mmol/L [facility] CO2 [Moles/Vol] 20 mmol/L 20 - 31 mmol/L [facility] Creatinine [Mass/Vol] 0.45 mg/dL Low 0.5 - 0.9 mg/dL [facility] GFR >60 60 - PI NF mL/min [facility] GFR Non- >60 60 - PINF mL/min [facility] GFR/1.73 sq M.predicted MDRD (S/P/Bld) [Vol rate/Area] [facility] Comment on above: Average GFR for 20-2 9 years old: 116 mL/min/1.73sq m Chronic Kidney Disease: <60 mL/min/1.73sq m Kidney failure: <15 mL/min/1.73sq m eGFR calculated using average adult body mass. Additional eGFR calculator available at: http://www.[employer]/multiple_crcl_2012.htm Glucose [Mass/Vol] 84 mg/dL 70 - 99 mg/dL [facility] Interpretation and review of laboratory results Abnormal [facility] Potassium [Moles/Vol] 4.1 mmol/L 3.7 - 5.3 mmol/L [facility] Comment on above: SPECIMEN SLIGHTLY HE MOLYZED, RESULTS MAY BE ADVERSELY AFFECTED. Sodium [Moles/Vol] 139 mmol/L 135 - 144 mmol/L [facility] Urea nitrogen (BldV) [Mass/Vol] 8 mg/dL 6 - 20 mg/dL [facility] CBC with Auto Differentialon 10-20-2021 Absolute Eos # 0.15 [facility] Absolute Immature Granulocyte [facility] Absolute Lymph # 1.48 [facility] Absolute Dale # 0.28 [facility] Basophils (Bld) [#/Vol] 0.03 10*3/uL [facility] Basophils/100 WBC (Bld) 1 % 0 - 2 % [facility] Eosinophils/100 WBC (Bld) 3 % 1 - 4 % [facility] Hematocrit (Bld) [Volume fraction] 35.5 % Low 36.3 - 47.1 % [facility] Hemoglobin (Bld) [Mass/Vol] 11.3 g/dL Low 11.9 - 15.1 g/dL [facility] Immature granulocytes/100 WBC (Bld) 0 % 0 [facility] Interpretation and review of laboratory results Abnormal [facility] Lymphocytes/100 WBC (Bld) 34 % 24 - 43 % [facility] MCH (RBC) [Entitic mass] 27.9 pg 25.2 - 33.5 pg [facility] MCHC (RBC) [Mass/Vol] 31.8 g/dL 28.4 - 34.8 g/dL [facility] MCV (RBC) [Entitic vol] 87.7 fL 82.6 - 102.9 fL [facility] Monocytes/100 WBC (Bld) 6 % 3 - 12 % B [facility] NRBC Automated 0.0 0.0 per 100 WBC [facility] Platelet distribution width (Bld) [Ratio] 12.9 % 11.8 - 14.4 % [facility] Platelets (Bld) [#/Vol] See Reflexed IPF Result [facility] RBC (Bld) [#/Vol] 4.05 10*6/uL 3.95 - 5.1 1 m/uL [facility] Segmented neutrophils/100 WBC (Bld) 55 % 36 - 65 % [facility] Segs Absolute 2.42 [facility] WBC (Bld) [#/Vol] 4.4 10*3/uL [facility] CBC with Diffon 10-20-2021 Abs. Basophil 0.03 k/uL Normal 0.00-0.20 [facility] Comment on above: Performed By: #### C DP, IPF #### [place] [address] [employer] Supervisor: Tavon Nicole MD Abs.Imm.Granulocyte <0.03 Normal 0.00-0.30 [facility] Comment on above: Performed By: #### C DP, IPF #### [place] [address] [employer] Supervisor: Tavon Nicole MD Abs.Neutrophil (Seg) 2.42 k/uL Normal 1.50-8.10 [facility] Comment on above: Performed By: #### C DP, IPF #### [place] [address] [employer] Supervisor: Tavon Nicole MD Basophils/100 WBC (Bld) 1 % Normal 0-2 [facility] Comment on above: Performed By: #### C DP, IPF #### [place] [address] [employer] Supervisor: Tavon Nicole MD Eosinophils (Bld) [#/Vol] 0.15 10*3/uL Normal 0.00-0.44 [facility] Comment on above: Performed By: #### C DP, IPF #### [place] [address] [employer] Supervisor: Tavon Nicole MD Eosinophils/100 WBC (Bld) 3 % Normal 1-4 [facility] Comment on above: Performed By: #### C DP, IPF #### [place] [address] [employer] Supervisor: Tavon Nicole MD Immature granulocytes/100 WBC (Bld) 0 % Normal 0 [facility] Comment on above: Performed By: #### C DP, IPF #### [address] [address] [employer] Supervisor: Tavon Nicole MD Lymphocytes (Bld) [#/Vol] 1.48 10*3/uL Normal 1.10-3.70 [facility] Comment on above: Performed By: #### C DP, IPF #### [address] [address] [employer] Supervisor: Tavon Nicole MD Lymphocytes/100 WBC (Bld) 34 % Normal 24-43 [facility] Comment on above: Performed By: #### C DP, IPF #### [address] [address] [employer] Supervisor: Tavon Nicole MD Monocytes (Bld) [#/Vol] 0.28 10*3/uL Normal 0.10-1.20 [facility] Comment on above: Performed By: #### C DP, IPF #### [address] [address] [employer] Supervisor: Tavon Nicole MD Monocytes/100 WBC (Bld) 6 % Normal 3-12 [facility] Comment on above: Performed By: #### C DP, IPF #### [address] [address] [employer] Supervisor: Tavon Nicole MD Neutrophil (Seg) 55 % Normal 36-65 [facility] Comment on above: Performed By: #### C DP, IPF #### [address] [address] [employer] Supervisor: Tavon Nicole MD Erythrocyte distribution width (RBC) [Ratio] 12.9 % Normal 11.8-14.4 [facility] Comment on above: Performed By: #### C DP, IPF #### [address] [address] [employer] Supervisor: Tavon Nicole MD Hematocrit (Bld) [Volume fraction] 35.5 % Low 36.3-47.1 [facility] Comment on above: Performed By: #### C DP, IPF #### [address] [address] [employer] Supervisor: Tavon Nicole MD Hemoglobin (Bld) [Mass/Vol] 11.3 g/dL Low 11.9-15.1 [facility] Comment on above: Performed By: #### C DP, IPF #### [address] [address] [employer] Supervisor: Tavon Nicole MD MCH (RBC) [Entitic mass] 27.9 pg Normal 25.2-33.5 [facility] Comment on above: Performed By: #### C DP, IPF #### [address] [address] [employer] Supervisor: Tavon Nicole MD MCHC (RBC) [Mass/Vol] 31.8 g/dL Normal 28.4-34.8 [facility] Comment on above: Performed By: #### C DP, IPF #### [address] [address] [employer] Supervisor: Tavon Nicole MD MCV (RBC) [Entitic vol] 87.7 fL Normal 82.6-102.9 [facility] Comment on above: Performed By: #### C DP, IPF #### [address] [address] [employer] Supervisor: Tavon Nicole MD NRBC Automated 0.0 per 100 WBC Normal 0.0 [facility] Comment on above: Performed By: #### C DP, IPF #### [address] [address] [employer] Supervisor: Tavon Nicole MD Platelet Count See Reflexed IPF Result Normal 138-453 [facility] Comment on above: Performed By: #### C DP, IPF #### [facility] [address] [place] [address] [employer] Supervisor: Tavon Nicole MD RBC (Bld) [#/Vol] 4.05 10*6/uL Normal 3.95-5.11 [facility] Comment on above: Performed By: #### C DP, IPF #### [facility] [address] [place] [address] [employer] Supervisor: Tavon Nicole MD WBC (Bld) [#/Vol] 4.4 10*3/uL Normal 3.5-11.3 [facility] Comment on above: Performed By: #### C DP, IPF #### [facility] [place] [address] [employer] Supervisor: Tavon Nicole MD EEG video monitoringon 10-20 Raiza Land MD 10/20/2021 12:11 PM Referring physician: Chris Blanchard [facility]NA[facility] C[facility] Date:10/20/2021 Start Time:10/19/2021 @1258 End Time: 10/20/2021 @ 1200 Indication Patient with recurrent events Introduction This continuous video-EEG was acquired using a [employer] workstation at 256 samples/s. Electrodes were placed [...] Board Certified. Neurology Board Certified. Electronically Signed [facility] [employer] Work Phone: EEG video monitoringOrdered By: Raiza Land on 10-20-2021 [facility] [employer] Work Phone: Immature Platelet Fractionon 10-20-2021 Platelet, Fluorescence Platelet clumps present, count appears adequate. [facility] [employer] [facility] [employer] PLT, Immature Fract.on 10-20 Platelet, Fluoresc. Platelet clumps present, count appears adequate. Normal 138-453 [facility] Comment on above: Performed By: #### C DP, IPF #### [facility] [address] [place] [address] [employer] Supervisor: Tavon Nicole MD PROLACTINon 10-20-2021 Prolactin 41.7 ng/mL Critically high 4.8-23.3 [facility] Comment on above: Performed By: #### C VDTBH #### [facility] [address] [address] [address] Ibis Jimenez CBCon 10-19-2021 Erythrocyte distribution width (RBC) [Ratio] 12.9 % Normal 11.8-14.4 [facility] Comment on above: Performed By: #### T ROPI, LACTIC, CMPX, CBC #### [facility] [place] [address] [employer] Supervisor: Tavon Nicole MD Hematocrit (Bld) [Volume fraction] 31.5 % Low 36.3-47.1 [facility] Comment on above: Performed By: #### T ROPI, LACTIC, CMPX, CBC #### [facility] [address] [place] [id number] [employer] Supervisor: Tavon Nicole MD Hemoglobin (Bld) [Mass/Vol] 10.8 g/dL Low 11.9-15.1 [facility] Comment on above: Performed By: #### T ROPI, LACTIC, CMPX, CBC #### [facility] [address] [place] [address] [employer] Supervisor: Tavon Nicole MD MCH (RBC) [Entitic mass] 29.1 pg Normal 25.2-33.5 [facility] Comment on above: Performed By: #### T ROPI, LACTIC, CMPX, CBC #### [facility] [address] [place] [address] [employer] Supervisor: Tavon Nicole MD MCHC (RBC) [Mass/Vol] 34.3 g/dL Normal 28.4-34.8 [facility] Comment on above: Performed By: #### T ROPI, LACTIC, CMPX, CBC #### [facility] [address] [place] [address] [employer] Supervisor: Tavon Nicole MD MCV (RBC) [Entitic vol] 84.9 fL Normal 82.6-102.9 [facility] Comment on above: Performed By: #### T ROPI, LACTIC, CMPX, CBC #### [facility] [address] [place] [address] [employer] Supervisor: Tavon Nicole MD NRBC Automated 0.0 per 100 WBC Normal 0.0 [facility] Comment on above: Performed By: #### T ROPI, LACTIC, CMPX, CBC #### [address] [address] [employer] Supervisor: Tavon Nicole MD Platelet mean volume (Bld) [Entitic vol] 9.8 fL Normal 8.1-13.5 [facility] Comment on above: Performed By: #### T ROPI, LACTIC, CMPX, CBC #### [facility] [address] [place] [address] [employer] Supervisor: Tavon Nicole MD Platelets (Bld) [#/Vol] 281 10*3/uL Normal 138-453 [facility] Comment on above: Performed By: #### T ROPI, LACTIC, CMPX, CBC #### [facility] [address] [place], [place] [id number] [employer] Supervisor: Tavon Nicole MD RBC (Bld) [#/Vol] 3.71 10*6/uL Low 3.95-5.11 [facility] Comment on above: Performed By: #### T ROPI, LACTIC, CMPX, CBC #### [facility] [address] [place], [place] [phone] [employer] Supervisor: Tavon Nicole MD WBC (Bld) [#/Vol] 5.0 10*3/uL Normal 3.5-11.3 [facility] Comment on above: Performed By: #### T ROPI, LACTIC, CMPX, CBC #### [facility] [address] [place], [place] [id number] [employer] Supervisor: Tavon Nicole MD Hematocrit (Bld) [Volume fraction] 31.5 % Low 36.3 - 47.1 % [facility] Hemoglobin (Bld) [Mass/Vol] 10.8 g/dL Low 11.9 - 15.1 g/dL [facility] Interpretation and review of laboratory results Abnormal [facility] MCH (RBC) [Entitic mass] 29.1 pg 25.2 - 33.5 pg [facility] MCHC (RBC) [Mass/Vol] 34.3 g/dL 28.4 - 34.8 g/dL [facility] MCV (RBC) [Entitic vol] 84.9 fL 82.6 - 102.9 fL [facility] NRBC Automated 0.0 0.0 per 100 WBC [facility] Platelet distribution width (Bld) [Ratio] 12.9 % 11.8 - 14.4 % [facility] Platelet mean volume (Bld) [Entitic vol] 9.8 fL 8.1 - 13.5 fL [facility] Platelets (Bld) [#/Vol] 281 10*3/uL [facility] RBC (Bld) [#/Vol] 3.71 10*6/uL Low 3.95 - 5.1 1 m/uL [facility] WBC (Bld) [#/Vol] 5.0 10*3/uL [facility] CBC AUTO DIFFon 10-19-2021 EO # 0.2 103/ul Normal 0.0-0.7 [facility] Comment on above: Performed By: #### A MM #### [facility] [address] [place] [address] Dr. Ibis Jimenez Eosinophils/100 WBC (Bld) 3.9 % Normal 0.9-7.0 [facility] Comment on above: Performed By: #### A MM #### [facility] [address] [place] [address] Dr. Ibis Jimenez Erythrocyte distribution width (RBC) [Ratio] 13.1 % Normal 11.0-15.0 [facility] [facility] Comment on above: Performed By: #### A MM #### [facility] [address] [place] [address] Dr. Ibis Jimenez Hematocrit (Bld) [Volume fraction] 33.4 % Critically low 36.0-48.0 [facility] Comment on above: Performed By: #### A MM #### [facility] [address] [place] [address] Dr. Ibis Jimenez Hemoglobin (Bld) [Mass/Vol] 11.1 g/dL Critically low 12.0-16.0 [facility] Comment on above: Performed By: #### A MM #### [facility] [address] [place] [address] Dr. Ibis Jimenez LYMPH # 1.2 103/ul Normal 1.2-3.8 [facility] Comment on above: Performed By: #### A MM #### [facility] [address] [place] [address] Dr. Ibis Jimenez Lymphocytes/100 WBC (Bld) 25.9 % Normal 20.5-60.0 [facility] Comment on above: Performed By: #### A MM #### [facility] [address] [place] [address] Dr. Ibis Jimenez MCHC (RBC) [Mass/Vol] 33.2 g/dL Normal 29.9-35.2 [facility] Comment on above: Performed By: #### A MM #### [facility] [address] [place] [address] Dr. Ibis Jimenez MCV (RBC) [Entitic vol] 85.9 fL Normal 81.0-99.0 [facility] Comment on above: Performed By: #### A MM #### [facility] [address] [place] [address] Dr. Ibis Jimenez Monocytes/100 WBC (Bld) 7.7 % Normal 1.7-12.0 [facility] Comment on above: Performed By: #### A MM #### [facility] [address] [place] [address] Dr. Ibis Jimenez NEUT # 2.9 103/ul Normal 1.4-6.5 [facility] Comment on above: Performed By: #### A MM #### [facility] [address] [place] [address] Dr. Ibis Jimenez Neutrophils/100 WBC (Bld) 61.5 % Normal 43.0-75.0 [facility] Comment on above: Performed By: #### A MM #### [facility] [address] [place] [address] Dr. Ibis Jimenez PLT 264 103/ul Normal 150-450 [facility] Comment on above: Performed By: #### A MM #### [facility] [address] [place] [address] Dr. Ibis Jimenez RBC 3.89 106/ul Critically low 4.20-5.40 [facility] Comment on above: Performed By: #### A MM #### [facility] [address] [place] [address] Dr. Ibis Jimenez WBC 4.7 103/ul Normal 4.0-11.0 [facility] Comment on above: Performed By: #### A MM #### [facility] [address] [place] [address] Dr. Ibis NGUYEN # 0.0 103/ul Normal 0.0-0.1 [facility] Comment on above: Performed By: #### A MM #### [facility] [address] [place] [address] Dr. Ibis Jimenez Performed By: #### C VDTBH #### [facility] [address] [place] [address] Dr. Ibis Jimenez Basophils/100 WBC (Bld) 0.6 % Normal 0.2-2.0 [facility] Comment on above: Performed By: #### A MM #### [facility] [address] [place] [address] Dr. Ibis Jimenez Performed By: #### C VDTBH #### [facility] [address] [place] [address] Dr. Ibis Jimenez EO # 0.3 103/ul Normal 0.0-0.7 [facility] Comment on above: Performed By: #### C VDTBH #### [facility] [address] [place] [address] Dr. Ibis Jimenez Eosinophils/100 WBC (Bld) 5.0 % Normal 0.9-7.0 [facility] Comment on above: Performed By: #### C VDTBH #### [facility] [address] [place] [address] Dr. Ibis Jimenez Erythrocyte distribution width (RBC) [Ratio] 12.8 % Normal 11.0-15.0 [facility] Comment on above: Performed By: #### C VDTBH #### [facility] [address] [place] [address] Dr. Ibis Jimenez Hematocrit (Bld) [Volume fraction] 38.0 % Normal 36.0-48.0 [facility] Comment on above: Performed By: #### C VDTBH #### [facility] [address] [place] [address] Dr. Ibis Jimenez Hemoglobin (Bld) [Mass/Vol] 12.7 g/dL Normal 12.0-16.0 [facility] Comment on above: Performed By: #### C VDTBH #### [facility] [address] [place] [address] Dr. Ibis Jimenez IG # 0.02 10e3/ul Normal 0.00-0.03 [facility] Comment on above: Performed By: #### A MM #### [facility] [address] [place] [address] Dr. Ibis Jimenez Performed By: #### C VDTBH #### [facility] [address] [place] [address] Dr. Ibis Jimenez IG % 0.4 % Normal 0.0-0.5 [facility] Comment on above: Performed By: #### A MM #### [facility] [address] [place] [address] Dr. Ibis Jimenez Performed By: #### C VDTBH #### [facility] [address] [place] [address] Dr. Ibis Jimenez LYMPH # 1.7 103/ul Normal 1.2-3.8 [facility] Comment on above: Performed By: #### C VDTBH #### [facility] [address] [place] [address] Dr. Ibis Jimenez Lymphocytes/100 WBC (Bld) 30.7 % Normal 20.5-60.0 [facility] Comment on above: Performed By: #### C VDTBH #### [facility] [address] [place] [address] Dr. Ibis Jimenez MANUAL DIFF REQ NO Normal [facility] Comment on above: Performed By: #### A MM #### [facility] [address] [place] [address] Dr. Ibis Jimenez Performed By: #### C VDTBH #### [facility] [address] [place] [address] Dr. Ibis Jimenez MCH (RBC) [Entitic mass] 28.5 pg Normal 26.7-34.0 [facility] Comment on above: Performed By: #### A MM #### [facility] [address] [place] [address] Dr. Ibis Jimenez Performed By: #### C VDTBH #### [facility] [address] [place] [address] Dr. Ibis Jimenez MCHC (RBC) [Mass/Vol] 33.4 g/dL Normal 29.9-35.2 [facility] Comment on above: Performed By: #### C VDTBH #### [facility] [address] [place] [address] Dr. Ibis Jimenez MCV (RBC) [Entitic vol] 85.2 fL Normal 81.0-99.0 [facility] Comment on above: Performed By: #### C VDTBH #### [facility] [address] [place] [address] Dr. Ibis Jimenez MONO # 0.4 103/ul Normal 0.3-0.8 [facility] Comment on above: Performed By: #### A MM #### [facility] [address] [place] [address] Dr. Ibis Jimenez Performed By: #### C VDTBH #### [facility] [address] [place] [address] Dr. Ibis Jimenez Monocytes/100 WBC (Bld) 8.1 % Normal 1.7-12.0 [facility] Comment on above: Performed By: #### C VDTBH #### [facility] [address] [place] [address] Dr. Ibis Jimenez NEUT # 3.0 103/ul Normal 1.4-6.5 [facility] Comment on above: Performed By: #### C VDTBH #### [facility] [address] [place] [address] Dr. Ibis Jimenez Neutrophils/100 WBC (Bld) 55.2 % Normal 43.0-75.0 [facility] Comment on above: Performed By: #### C VDTBH #### [facility] [address] [place] [address] Dr. Ibis Jimenez Platelet mean volume (Bld) [Entitic vol] 9.5 fL Normal 9.5-13.5 [facility] Comment on above: Performed By: #### A MM #### [facility] [address] [place] [address] Dr. Ibis Jimenez Performed By: #### C VDTBH #### [facility] [address] [place] [address] Dr. Ibis Jimenez PLT 343 103/ul Normal 150-450 [facility] Comment on above: Performed By: #### C VDTBH #### [facility] [address] [place] [address] Dr. Ibis Jimenez RBC 4.46 106/ul Normal 4.20-5.40 [facility] Comment on above: Performed By: #### C VDTBH #### [facility] [address] [place] [address] Dr. Ibis Jimenez WBC 5.4 103/ul Normal 4.0-11.0 [facility] Comment on above: Performed By: #### C VDTBH #### [facility] [address] [place] [address] HEAD WO CONon [...] Date: 2021-10-19 07:31 Normal [facility] Metabolic Pr/rfx MGon 0 10-19-2021 (cont.) Normal [facility] Comment on above: Result Comment: Aver age GFR for 20-29 years old: 116 mL/min/1.73sq m Chronic Kidney Disease: <60 mL/min/1.73sq m Kidney failure: <15 mL/min/1.73sq m eGFR calculated using average adult body mass. Additional eGFR calculator available at: http://www.[employer]/multiple_crcl_2012.htm Performed By: #### T ROPI, LACTIC, CMPX, CBC #### [facility] [address] [place] [address] [employer] Supervisor: Tavon Nicole MD Albumin [Mass/Vol] 3.5 g/dL Normal 3.5-5.2 [facility] Comment on above: Performed By: #### T ROPI, LACTIC, CMPX, CBC #### [address] [address] [employer] Supervisor: Tavon Nicole MD Albumin/Glob Ratio 1.4 Normal 1.0-2.5 [facility] Comment on above: Performed By: #### T ROPI, LACTIC, CMPX, CBC #### [address] [address] [employer] Supervisor: Tavon Nicole MD Alkaline Phos 69 U/L Normal 35-104 [facility] Comment on above: Performed By: #### T ROPI, LACTIC, CMPX, CBC #### [facility] [address] [place] [address] [employer] Supervisor: Tavon Nicole MD ALT [Catalytic activity/Vol] 15 U/L Normal 5-33 [facility] Comment on above: Performed By: #### T ROPI, LACTIC, CMPX, CBC #### [facility] [address] [place] [address] [employer] Supervisor: Tavon Nicole MD Anion gap [Moles/Vol] 13 mmol/L Normal 9-17 [facility] Comment on above: Performed By: #### T ROPI, LACTIC, CMPX, CBC #### [facility] [address] [place] [address] [employer] Supervisor: Tavon Nicole MD AST [Catalytic activity/Vol] 12 U/L Normal <32 [facility] Comment on above: Performed By: #### T ROPI, LACTIC, CMPX, CBC #### [facility] [address] [place] [address] [employer] Supervisor: Tavon Nicole MD Bilirubin [Mass/Vol] 0.24 mg/dL Low 0.3-1.2 [facility] Comment on above: Performed By: #### T ROPI, LACTIC, CMPX, CBC #### [facility] [address] [place] [address] [employer] Supervisor: Tavon Nicole MD Calcium [Mass/Vol] 8.1 mg/dL Low 8.6-10.4 [facility] Comment on above: Performed By: #### T ROPI, LACTIC, CMPX, CBC #### [facility] [address] [place] [address] [employer] Supervisor: Tavon Nicole MD Chloride [Moles/Vol] 107 mmol/L Normal 98-107 [facility] Comment on above: Performed By: #### T ROPI, LACTIC, CMPX, CBC #### [facility] [address] [place] [address] [employer] Supervisor: Tavon Nicole MD CO2 [Moles/Vol] 19 mmol/L Low 20-31 [facility] Comment on above: Performed By: #### T ROPI, LACTIC, CMPX, CBC #### [facility] [address] [place] [address] [employer] Supervisor: Tavon Nicole MD Creatinine [Mass/Vol] 0.53 mg/dL Normal 0.50-0.90 [facility] Comment on above: Performed By: #### T ROPI, LACTIC, CMPX, CBC #### [facility] [address] [place] [address] [employer] Supervisor: Tavon Nicole MD GFR, Amer >60 Normal >60 [facility] Comment on above: Performed By: #### T ROPI, LACTIC, CMPX, CBC #### [facility] [address] [place] [address] [employer] Supervisor: Tavon Nicole MD GFR,non Amer >60 Normal >60 [facility] Comment on above: Performed By: #### T ROPI, LACTIC, CMPX, CBC #### [facility] [address] [place] [address] [employer] Supervisor: Tavon Nicole MD Glucose [Mass/Vol] 81 mg/dL Normal 70-99 [facility] Comment on above: Performed By: #### T ROPI, LACTIC, CMPX, CBC #### [facility] [address] [place] [address] [employer] Supervisor: Tavon Nicole MD Potassium [Moles/Vol] 3.9 mmol/L Normal 3.7-5.3 [facility] Comment on above: Performed By: #### T ROPI, LACTIC, CMPX, CBC #### [facility] [address] [place] [address] [employer] Supervisor: Tavon Nicole MD Protein [Mass/Vol] 6.0 g/dL Low 6.4-8.3 [facility] Comment on above: Performed By: #### T ROPI, LACTIC, CMPX, CBC #### [facility] [address] [place] [address] [employer] Supervisor: Tavon Nicole MD Sodium [Moles/Vol] 139 mmol/L Normal 135-144 [facility] Comment on above: Performed By: #### T ROPI, LACTIC, CMPX, CBC #### [facility] [address] [place], [place] [id number] [employer] Supervisor: Tavon Nicole MD Urea nitrogen [Mass/Vol] 10 mg/dL Normal 6-20 [facility] Comment on above: Performed By: #### T ROPI, LACTIC, CMPX, CBC #### [facility] [place], [place] [id number] [employer] Supervisor: Tavon Niocle MD Comprehensive Metabolic Pane l w/ Reflex to MGon 10-19-2021 Albumin [Mass/Vol] 3.5 g/dL 3.5 - 5.2 g/dL [facility] Albumin/Globulin [Mass ratio] 1.4 {ratio} 1 - 2.5 [facility] ALP (Bld) [Catalytic activity/Vol] 69 U/L 35 - 104 U/L [facility] ALT [Catalytic activity/Vol] 15 U/L 5 - 33 U/L [facility] Anion gap [Moles/Vol] 13 mmol/L 9 - 17 mmol/L [facility] AST [Catalytic activity/Vol] 12 U/L NINF - 32 U/L [facility] Bilirubin [Mass/Vol] 0.24 mg/dL Low 0.3 - 1 .2 mg/dL [facility] Calcium [Mass/Vol] 8.1 mg/dL Low 8.6 - 10. 4 mg/dL [facility] Chloride [Moles/Vol] 107 mmol/L 98 - 10 7 mmol/L [facility] CO2 [Moles/Vol] 19 mmol/L Low 20 - 31 mmol/L [facility] Creatinine [Mass/Vol] 0.53 mg/dL 0.5 - 0.9 mg/dL [facility] Free PSA/Total PSA [Mass fraction] 6.0 g/dL Low 6.4 - 8.3 g/dL [facility] GFR >60 60 - PI NF mL/min [facility] GFR Non- >60 60 - PINF mL/min [facility] GFR/1.73 sq M.predicted MDRD (S/P/Bld) [Vol rate/Area] [facility] Comment on above: Average GFR for 20-2 9 years old: 116 mL/min/1.73sq m Chronic Kidney Disease: <60 mL/min/1.73sq m Kidney failure: <15 mL/min/1.73sq m eGFR calculated using average adult body mass. Additional eGFR calculator available at: http://www.[employer]/multiple_crcl_2012.htm Glucose [Mass/Vol] 81 mg/dL 70 - 99 mg/dL [facility] Interpretation and review of laboratory results Abnormal [facility] Potassium [Moles/Vol] 3.9 mmol/L 3.7 - 5.3 mmol/L [facility] Sodium [Moles/Vol] 139 mmol/L 135 - 144 mmol/L [facility] Urea nitrogen (BldV) [Mass/Vol] 10 mg/dL 6 - 20 mg/dL [facility] Covid-19 PCR ([facility])on 09-22 SARS-CoV-2 (COVID-19) RNA SAURABH+probe Ql (Unsp spec) Not detected Normal NOT DETECTED [facility] Comment on above: Result Comment: When [...] for this test is supported by the Broadcast Operations Manager of Health and Human Service's [...] longer be used). Performed By: #### C [facility] #### [facility] [address] [place] [address] Dr. Ibis Jimenez DRUG SCREEN RAPID (URINE)on 10-19-2021 AMP Negative Normal NEGATIVE [facility] Comment on above: Performed By: #### B MP #### [facility] [address] [place] [address] Dr. Ibis Jimenez BAR Positive Abnormal NEGATIVE [facility] Comment on above: Performed By: #### B MP #### [facility] [address] [place] [address] Dr. Ibis Jimenez BUP Negative Normal NEGATIVE [facility] Comment on above: Performed By: #### B MP #### [facility] [address] [place] [address] Dr. Ibis Jimenez BZO Positive Abnormal NEGATIVE [facility] Comment on above: Performed By: #### B MP #### [facility] [address] [place] [address] Dr. Ibis Jimenez SEMAJ Negative Normal NEGATIVE [facility] Comment on above: Performed By: #### B MP #### [facility] [address] [place] [address] Dr. Ibis Jimenez CUT-OFFS SEE BELOW Normal [facility] Comment on above: Result Comment: AMP [...] By: #### B MP #### [facility] [address] [place] [address] Dr. Ibis Jimenez DRUG CUT HEADER DRUG CLASS TEST SYSTEM CUT-OFF CONCENTRATIONS ARE FOLLOWS: Normal [facility] Comment on above: Performed By: #### B MP #### [facility] [address] [place] [address] Dr. Ibis Jimenez mAMP Negative Normal NEGATIVE [facility] Comment on above: Performed By: #### B MP #### [facility] [address] [place] [address] Dr. Ibis Jimenez MTD Negative Normal NEGATIVE [facility] Comment on above: Performed By: #### B MP #### [facility] [address] [place] [address] Dr. Ibis Jimenez OPI Positive Abnormal NEGATIVE [facility] Comment on above: Performed By: #### B MP #### [facility] [address] [place] [address] Dr. Ibis Jimenez OXY Positive Abnormal NEGATIVE [facility] Comment on above: Performed By: #### B MP #### [facility] [address] [place] [address] Dr. Ibis Jimenez PCP Negative Normal NEGATIVE [facility] Comment on above: Performed By: #### B MP #### [facility] [address] [place] [address] Dr. Ibis Jimenez PPX Negative Normal NEGATIVE [facility] Comment on above: Performed By: #### B MP #### [facility] [address] [place] [address] Dr. Ibis Jimenez TCA Negative Normal NEGATIVE [facility] Comment on above: Performed By: #### B MP #### [facility] [address] [place] [address] Dr. Ibis Jimenez THC Negative Normal NEGATIVE [facility] Comment on above: Performed By: #### B MP #### [facility] [address] [place] [address] Dr. Ibis Jimenez ER URINE PROFILEon 2 Bilirubin Ql (U) Negative Normal NEGATIVE [facility] Comment on above: Performed By: #### B MP #### [facility] [address] [place] [address] Dr. Ibis Jimenez Clarity (U) CLEAR Normal CLEAR [facility] Comment on above: Performed By: #### B MP #### [facility] [address] [place] [address] Dr. Ibis Jimenez Color (U) YELLOW Normal YELLOW [facility] Comment on above: Performed By: #### B MP #### [facility] [address] [place] [address] Dr. Ibis RODRIGUEZ A micrscopic examination will be performed if indicated. Normal [facility] Comment on above: Performed By: #### B MP #### [facility] [address] [place] [address] Dr. Ibis Jimenez Glucose Ql (U) Negative Normal NEGATIVE [facility] Comment on above: Performed By: #### B MP #### [facility] [address] [place] [address] Dr. Ibis Jimenez Hemoglobin Ql (U) TRACE-INTACT Abnormal NEGATIVE [facility] Comment on above: Performed By: #### B MP #### [facility] [address] [place] [address] Dr. Ibis Jimenez Ketones Ql (U) Negative Normal NEGATIVE [facility] Comment on above: Performed By: #### B MP #### [facility] [address] [place] [address] Dr. Ibis Jimenez LEUKOCYTES Negative Normal NEGATIVE [facility] Comment on above: Performed By: #### B MP #### [facility] [address] [place] [address] Dr. Ibis Jimenez Nitrite Ql (U) Negative Normal NEGATIVE [facility] Comment on above: Performed By: #### B MP #### [facility] [address] [place] [address] Dr. Ibis Jimenez pH (U) 5.5 [pH] Normal 5-9 [facility] Comment on above: Performed By: #### B MP #### [facility] [address] [place] [address] Dr. Ibis Jimenez SPEC GRAVITY >=1.030 Abnormal 1.005-<=1.[address] [place] [address] Comment on above: Performed By: #### B MP #### [facility] [address] [place] [address] Dr. Ibis Jimenez UA PROTEIN Negative Normal NEGATIVE/ TRACE [facility] Comment on above: Performed By: #### B MP #### [facility] [address] [place] [address] Dr. Ibis Jimenez UR MICRO IND INDICATED Normal [facility] Comment on above: Performed By: #### B MP #### [facility] [address] [place] [address] Dr. Ibis Jimenez Urobilinogen Qn (U) 0.2 {Dinorah'U}/dL Normal 0.2 - 1. 0 [facility] Comment on above: Performed By: #### B MP #### [facility] [address] [place] [address] Dr. Ibis Jimenez LACTATE/LACTIC ACIDon 2021 Lactate [Moles/Vol] 1.2 mmol/L Normal 0.4-1.9 [facility] Comment on above: Performed By: #### A MM #### [facility] [address] [place] [address] Dr. Ibis Jimenez Lactic Acidon 10-19-2021 Lactic Acid,Whole Bl 0.9 mmol/L Normal 0.7-2.1 [facility] Comment on above: Performed By: #### T ROPI, LACTIC, CMPX, CBC #### [facility] [address] [place] [address] [employer] Reactor Supervisor: Tavon Nicole MD Lactic Acid, Whole Blood 0.9 mmol/L 0.7 - 2.1 mmol/L [facility] MONOon 10-19-2021 Monocytes (Bld) [#/Vol] Negative Normal NEGATIVE [facility] Comment on above: Performed By: #### M DAVID #### [facility] [address] [place] [address] Dr. Ibis Jimenez MRI BRAIN W WO [...] Carlos Marks DO 10/19/21 Final result Normal [facility] Unremarkable MR brain. [facility] EXAMINATION: MRI OF THE BRAIN WITHOUT [...] The soft tissues demonstrate no acute abnormality. [facility] Carlos Marks DO - 10/19/2021 EXAMINATION: [...] no acute abnormality. IMPRESSION: Unremarkable MR brain. [employer] Phone: Radiology Study observation (narrative) [place] [employer] Phone: MRI BRAIN W WO CONTRASTOrder ed By: Carlos Marks on 10-19-2021 [facility] [employer] Phone: PH VENOUS BLOODon 10-19-2021 PCO2 VENOUS 36.6 mmHg Critically low 40.0-52.0 [facility] Comment on above: Performed By: #### B MP #### [facility] [address] [place] [address] Dr. Ibis Jimenez pH VENOUS 7.387 Normal 7.330-7.430 [facility] Comment on above: Performed By: #### B MP #### [facility] [address] [place], [place] [address] Dr. Ibis Jimenez PROF CHEM 8 (BAS METB)on Anion gap [Moles/Vol] 11.9 mmol/L Normal [facility] Comment on above: Performed By: #### M DAVID #### [facility] [address] [place] [address] [address] Ibis Jimenez Calcium [Mass/Vol] 9.1 mg/dL Normal 8.5-10.1 [facility] Comment on above: Performed By: #### M DAVID #### [facility] [address] [address] [address] Ibis Jimenez Chloride [Moles/Vol] 104 mmol/L Normal 98-107 [facility] Comment on above: Performed By: #### M DVAID #### [facility] [address] [address] [address] Ibis Jimenez CO2 [Moles/Vol] 26.7 mmol/L Normal 21.0-32.0 [facility] Comment on above: Performed By: #### M DAVID #### [facility] [address] [address] [address] Ibis Jimenez Creatinine [Mass/Vol] 0.78 mg/dL Normal 0.55-1.02 [facility] Comment on above: Performed By: #### M DAVID #### [facility] [address] [address] [address] Ibis Jimenez EGFR-AF SWAZI >60 Normal >=60 [facility] Comment on above: Performed By: #### M DAVID #### [facility] [address] [address] [address] Ibis Jimenez EGFR-NON AF SWAZI >60 Normal >=60 [facility] Comment on above: Performed By: #### M DAVID #### [facility] [address] [address] [address] Ibis Jimenez Glucose [Mass/Vol] 96 mg/dL Normal 74-106 [facility] Comment on above: Performed By: #### M DAVID #### [facility] [address] [address] [address] Ibis Jimenez Potassium [Moles/Vol] 3.6 mmol/L Normal 3.5-5.1 [facility] Comment on above: Performed By: #### M DAVID #### [facility] [address] [place], [place] [address] Dr. Ibis Jimenez Sodium [Moles/Vol] 139 mmol/L Normal 136-145 [facility] Comment on above: Performed By: #### M DAVID #### [facility] [address] [place], [place] [address] Dr. Ibis Jimenez Urea nitrogen [Mass/Vol] 14.0 mg/dL Normal 7.0-18.0 [facility] Comment on above: Performed By: #### M DAVID #### [facility] [address] [place], [place] [address] Dr. Ibis Jimenez Urea nitrogen/Creatinine [Mass ratio] 17.9 mg/mg Normal [facility] Comment on above: Performed By: #### M DAVID #### [facility] [address] [address] [address] Ibis Jimenez TSHon 10-19-2021 TSH 1.389 uIU/mL Normal 0.358-3.740 [facility] Comment on above: Performed By: #### A CET, SALYC #### [facility] [address] [place], [place] [address] Dr. Ibis Jimenez Troponinon 10-19-2021 Troponin, High Sens <6 Normal 0-14 [facility] Comment on above: Result Comment: High Sensitivity Troponin values cannot be compared with other Troponin methodologies. Patients with high levels of Biotin oral intake (i.e >5mg/day) may have falsely decreased Troponin levels. Samples collected within 8 hours of biotin intake may require additional information for diagnosis. Performed By: #### T ROPI, LACTIC, CMPX, CBC #### [facility] [address] [place] [address] [employer] Supervisor: Tavon Nicole MD Troponin, High Sensitivity ng/L 0 - 14 ng/L [facility] Comment on above: High Sensitivity Troponin values cannot be compared with other Troponin methodologies. Patients with high levels of Biotin oral intake (i.e >5mg/day) may have falsely decreased Troponin levels. Samples collected within 8 hours of biotin intake may require additional information for diagnosis. [facility] URINE MICROSCOPIC ONLYon BACTERIA TRACE Abnormal NONE SEEN [facility] Comment on above: Performed By: #### B MP #### [facility] [address] [place] [address] Dr. Ibis Jimenez Bacteria identified Cx Nom (U) NOT INDICATED Normal [facility] Comment on above: Performed By: #### B MP #### [facility] [address] [place] [address] Dr. Ibis Jimenez CAST NONE SEEN Normal NONE SEEN [facility] Comment on above: Performed By: #### B MP #### [facility] [address] [place] [address] Dr. Ibis Jimenez Crystals LM Nom (Urine sed) NONE SEEN Normal NONE SEEN [facility] Comment on above: Performed By: #### B MP #### [facility] [address] [place] [address] Dr. Ibis Jimenez Epithelial cells LM Ql (Urine sed) RARE Normal NONE SEEN /RARE [facility] Comment on above: Performed By: #### B MP #### [facility] [address] [place] [address] Dr. Ibis Jimenez MUCOUS LARGE Abnormal NONE SEEN [facility] Comment on above: Performed By: #### B MP #### [facility] [address] [place] [address] Dr. Ibis Jimenez RBC 2-5 Abnormal 0-2 [facility] Comment on above: Performed By: #### B MP #### [facility] [address] [place] [address] Dr. Ibis Jimenez WBC 0-2 Abnormal NONE SEEN [facility] Comment on above: Performed By: #### B MP #### [facility] [address] [place] [address] ABD/PELVIS WO CONon [...] by: JASS LAURENT Date: 2021-10-06 20:08 Normal [facility] ER URINE PROFILEon 2 Bilirubin Ql (U) Negative Normal NEGATIVE [facility] Comment on above: Performed By: #### M DAVID #### [facility] [address] [place] [address] Dr. Ibis Jimenez Clarity (U) CLEAR Normal CLEAR [facility] Comment on above: Performed By: #### M DAVID #### [facility] [address] [address] [address] Ibis Jimenez Color (U) LT. YELLOW Normal YELLOW [facility] Comment on above: Performed By: #### M DAVID #### [facility] [address] [place] [address] Dr. Ibis Jimenez ERUAHD A micrscopic examination will be performed if indicated. Normal [facility] Comment on above: Performed By: #### M DAVID #### [facility] [address] [address] [address] Ibis Jimenez Glucose Ql (U) Negative Normal NEGATIVE [facility] Comment on above: Performed By: #### M DAVID #### [facility] [address] [address] [address] Ibis Jimenez Hemoglobin Ql (U) Negative Normal NEGATIVE [facility] Comment on above: Performed By: #### M DAVID #### [facility] [address] [address] [address] Ibis Jimenez Ketones Ql (U) Negative Normal NEGATIVE [facility] Comment on above: Performed By: #### M DAVID #### [facility] [address] [place] [address] Dr. Ibis Jimenez LEUKOCYTES Negative Normal NEGATIVE [facility] Comment on above: Performed By: #### M DAVID #### [facility] [address] [place] [address] Dr. Ibis Jimenez Nitrite Ql (U) Negative Normal NEGATIVE [facility] Comment on above: Performed By: #### M DAVID #### [facility] [address] [address] [address] Ibis Jimenez pH (U) 8.0 [pH] Normal 5-9 [facility] Comment on above: Performed By: #### M DAVID #### [facility] [address] [place] [address] Dr. Ibis Jimenez SPEC GRAVITY 1.010 Normal 1.005-<=1.02 5 [facility] Comment on above: Performed By: #### M DAVID #### [facility] [address] [place] [address] Dr. Ibis Jimenez UA PROTEIN Negative Normal NEGATIVE/ TRACE [facility] Comment on above: Performed By: #### M DAVID #### [facility] [address] [place] [address] Dr. Ibis Jimenez UR MICRO IND NOT INDICATED Normal [facility] Comment on above: Performed By: #### M DAVID #### [facility] [address] [place] [address] Dr. Ibis Jimenez Urobilinogen Qn (U) 0.2 {Dinorah'U}/dL Normal 0.2 - 1. 0 [facility] Comment on above: Performed By: #### M DAVID #### [facility] [address] [address] [address] Ibis Jimenez ER URINE PROFILEon 2 Bilirubin Ql (U) Negative Normal NEGATIVE [facility] Comment on above: Performed By: #### C VDTBH #### [facility] [address] [address] [address] Ibis Jimenez Clarity (U) CLEAR Normal CLEAR [facility] Comment on above: Performed By: #### C VDTBH #### [facility] [address] [address] [address] Ibis Jimenez Color (U) YELLOW Normal YELLOW [facility] Comment on above: Performed By: #### C VDTBH #### [facility] [address] [address] [address] Ibis LOZOYAAHKishan A micrscopic examination will be performed if indicated. Normal [facility] Comment on above: Performed By: #### C VDTBH #### [facility] [address] [address] [address] Ibis Jimenez Glucose Ql (U) Negative Normal NEGATIVE [facility] Comment on above: Performed By: #### C VDTBH #### [facility] [address] [address] [address] Ibis Jimenez Hemoglobin Ql (U) Negative Normal NEGATIVE [facility] Comment on above: Performed By: #### C VDTBH #### [facility] [address] [address] [address] Ibis Jimenez Ketones Ql (U) Negative Normal NEGATIVE [facility] Comment on above: Performed By: #### C VDTBH #### [facility] [address] [address] [address] Ibis Jimenez LEUKOCYTES Negative Normal NEGATIVE [facility] Comment on above: Performed By: #### C VDTBH #### [facility] [address] [place] [address] Dr. Ibis Jimenez Nitrite Ql (U) Negative Normal NEGATIVE [facility] Comment on above: Performed By: #### C VDTBH #### [facility] [address] [place] [address] Dr. Ibis Jimenez pH (U) 6.0 [pH] Normal 5-9 [facility] Comment on above: Performed By: #### C VDTBH #### [facility] [address] [place] [address] Dr. Ibis Jimenez SPEC GRAVITY 1.025 Normal 1.005-<=1.02 5 [facility] Comment on above: Performed By: #### C VDTBH #### [facility] [address] [place] [address] Dr. Ibis Jimenez UA PROTEIN Negative Normal NEGATIVE/ TRACE [facility] Comment on above: Performed By: #### C VDTBH #### [facility] [address] [place] [address] Dr. Ibis Jimenez UR MICRO IND NOT INDICATED Normal [facility] Comment on above: Performed By: #### C VDTBH #### [facility] [address] [place] [address] Dr. Ibis Jimenez Urobilinogen Qn (U) 0.2 {Dinorah'U}/dL Normal 0.2 - 1. 0 [facility] Comment on above: Performed By: #### C VDTBH #### [facility] [address] [place] [address] Dr. Ibis Jimenez CBC AUTO DIFFon 10-03-2021 BASO # 0.0 103/ul Normal 0.0-0.1 [facility] Comment on above: Performed By: #### B MP #### [facility] [address] [place] [address] Dr. Ibis Jimenez Basophils/100 WBC (Bld) 0.3 % Normal 0.2-2.0 [facility] Comment on above: Performed By: #### B MP #### [facility] [address] [place] [address] Dr. Ibis Jimenez EO # 0.3 103/ul Normal 0.0-0.7 [facility] Comment on above: Performed By: #### B MP #### [facility] [address] [place] [address] Dr. Ibis Jimenez Eosinophils/100 WBC (Bld) 4.1 % Normal 0.9-7.0 [facility] Comment on above: Performed By: #### B MP #### [facility] [address] [place] [address] Dr. Ibis Jimenez Erythrocyte distribution width (RBC) [Ratio] 13.2 % Normal 11.0-15.0 [facility] Comment on above: Performed By: #### B MP #### [facility] [address] [place] [address] Dr. Ibis Jimenez Hematocrit (Bld) [Volume fraction] 35.7 % Critically low 36.0-48.0 [facility] Comment on above: Performed By: #### B MP #### [facility] [address] [place] [address] Dr. Ibis Jimenez Hemoglobin (Bld) [Mass/Vol] 11.6 g/dL Critically low 12.0-16.0 [facility] Comment on above: Performed By: #### B MP #### [facility] [address] [place] [address] Dr. Ibis Jimenez IG # 0.02 10e3/ul Normal 0.00-0.03 [facility] Comment on above: Performed By: #### B MP #### [facility] [address] [place] [address] Dr. Ibis Jimenez IG % 0.3 % Normal 0.0-0.5 [facility] Comment on above: Performed By: #### B MP #### [facility] [address] [place] [address] Dr. Ibis Jimenez LYMPH # 1.5 103/ul Normal 1.2-3.8 [facility] Comment on above: Performed By: #### B MP #### [facility] [address] [place] [address] Dr. Ibis Jimenez Lymphocytes/100 WBC (Bld) 24.3 % Normal 20.5-60.0 [facility] Comment on above: Performed By: #### B MP #### [facility] [address] [place] [address] Dr. Ibis Jimenez MANUAL DIFF REQ NO Normal [facility] Comment on above: Performed By: #### B MP #### [facility] [address] [place] [address] Dr. Ibis Jimenez MCH (RBC) [Entitic mass] 28.9 pg Normal 26.7-34.0 [facility] Comment on above: Performed By: #### B MP #### [facility] [address] [place] [address] Dr. Ibis Jimenez MCHC (RBC) [Mass/Vol] 32.5 g/dL Normal 29.9-35.2 [facility] Comment on above: Performed By: #### B MP #### [facility] [address] [place] [address] Dr. Ibis Jimenez MCV (RBC) [Entitic vol] 89.0 fL Normal 81.0-99.0 [facility] Comment on above: Performed By: #### B MP #### [facility] [address] [place] [address] Dr. Ibis Jimenez MONO # 0.5 103/ul Normal 0.3-0.8 [facility] Comment on above: Performed By: #### B MP #### [facility] [address] [place] [address] Dr. Ibis Jimenez Monocytes/100 WBC (Bld) 7.3 % Normal 1.7-12.0 [facility] Comment on above: Performed By: #### B MP #### [facility] [address] [place] [address] Dr. Ibis Jimenez NEUT # 4.0 103/ul Normal 1.4-6.5 [facility] Comment on above: Performed By: #### B MP #### [facility] [address] [place] [address] Dr. Ibis Jimenez Neutrophils/100 WBC (Bld) 63.7 % Normal 43.0-75.0 [facility] Comment on above: Performed By: #### B MP #### [facility] [address] [place] [address] Dr. Ibis Jimenez Platelet mean volume (Bld) [Entitic vol] 9.7 fL Normal 9.5-13.5 [facility] Comment on above: Performed By: #### B MP #### [facility] [address] [place] [address] Dr. Ibis Jimenez PLT 237 103/ul Normal 150-450 [facility] Comment on above: Performed By: #### B MP #### [facility] [address] [place] [address] Dr. Ibis Jimenez RBC 4.01 106/ul Critically low 4.20-5.40 [facility] Comment on above: Performed By: #### B MP #### [facility] [address] [place] [address] Dr. Ibis Jimenez WBC 6.3 103/ul Normal 4.0-11.0 [facility] Comment on above: Performed By: #### B MP #### [facility] [address] [place] [address] Dr. Ibis Jimenez LACTATE/LACTIC ACIDon 2021 Lactate [Moles/Vol] 1.2 mmol/L Normal 0.4-1.9 [facility] Comment on above: Performed By: #### A MM #### [facility] [address] [place] [address] Dr. Ibis Jimenez BUNon 10-02-2021 Urea nitrogen [Mass/Vol] 7.0 mg/dL Normal 7.0-18.0 [facility] Comment on above: Performed By: #### C VDTBH #### [facility] [address] [place] [address] Dr. Ibis Jimenez CBC AUTO DIFFon 10-02-2021 BASO # 0.0 103/ul Normal 0.0-0.1 [facility] Comment on above: Performed By: #### A MM #### [facility] [address] [place], [place] [id number] Dr. Ibis Jimenez Basophils/100 WBC (Bld) 0.2 % Normal 0.2-2.0 [facility] Comment on above: Performed By: #### A MM #### [facility] [address] [place] [address] Dr. Ibis Jimenez EO # 0.0 103/ul Normal 0.0-0.7 [facility] Comment on above: Performed By: #### A MM #### [facility] [address] [place] [address] Dr. Ibis Jimenez Eosinophils/100 WBC (Bld) 0.3 % Critically low 0.9-7.0 [facility] Comment on above: Performed By: #### A MM #### [facility] [address] [place] [address] Dr. Ibis Jimenez Erythrocyte distribution width (RBC) [Ratio] 12.7 % Normal 11.0-15.0 [facility] Comment on above: Performed By: #### A MM #### [facility] [address] [place] [address] Dr. Ibis Jimenez Hematocrit (Bld) [Volume fraction] 43.4 % Normal 36.0-48.0 [facility] Comment on above: Performed By: #### A MM #### [facility] [address] [place] [address] Dr. Ibis Jimenez Hemoglobin (Bld) [Mass/Vol] 14.6 g/dL Normal 12.0-16.0 [facility] Comment on above: Performed By: #### A MM #### [facility] [address] [place] [address] Dr. Ibis Jimenez IG # 0.03 10e3/ul Normal 0.00-0.03 [facility] Comment on above: Performed By: #### A MM #### [facility] [address] [place] [address] Dr. Ibis Jimenez IG % 0.3 % Normal 0.0-0.5 [facility] Comment on above: Performed By: #### A MM #### [facility] [address] [place] [address] Dr. Ibis Jimenez LYMPH # 1.2 103/ul Normal 1.2-3.8 [facility] Comment on above: Performed By: #### A MM #### [facility] [address] [place] [address] Dr. Ibis Jimenez Lymphocytes/100 WBC (Bld) 11.6 % Critically low 20.5-60.0 [facility] Comment on above: Performed By: #### A MM #### [facility] [address] [place] [address] Dr. Ibis Jimenez MANUAL DIFF REQ NO Normal [facility] Comment on above: Performed By: #### A MM #### [facility] [address] [place] [address] Dr. Ibis Jimenez MCH (RBC) [Entitic mass] 28.5 pg Normal 26.7-34.0 [facility] Comment on above: Performed By: #### A MM #### [facility] [address] [place] [address] Dr. Ibis Jimenez MCHC (RBC) [Mass/Vol] 33.6 g/dL Normal 29.9-35.2 [facility] Comment on above: Performed By: #### A MM #### [facility] [address] [place] [address] Dr. Ibis Jimenez MCV (RBC) [Entitic vol] 84.6 fL Normal 81.0-99.0 [facility] Comment on above: Performed By: #### A MM #### [facility] [address] [place] [address] Dr. Ibis Jimenez MONO # 0.6 103/ul Normal 0.3-0.8 [facility] Comment on above: Performed By: #### A MM #### [facility] [address] [place] [address] Dr. Ibis Jimenez Monocytes/100 WBC (Bld) 5.9 % Normal 1.7-12.0 [facility] [facility] Comment on above: Performed By: #### A MM #### [facility] [address] [place] [address] Dr. Ibis Jimenez NEUT # 8.2 103/ul Critically high 1.4-6.5 [facility] Comment on above: Performed By: #### A MM #### [facility] [address] [place] [address] Dr. Ibis Jimenez Neutrophils/100 WBC (Bld) 81.7 % Critically high 43.0-75.0 [facility] Comment on above: Performed By: #### A MM #### [facility] [address] [place] [address] Dr. Ibis Jimenez Platelet mean volume (Bld) [Entitic vol] 9.8 fL Normal 9.5-13.5 [facility] Comment on above: Performed By: #### A MM #### [facility] [address] [place] [address] Dr. Ibis Jimenez PLT 264 103/ul Normal 150-450 [facility] Comment on above: Performed By: #### A MM #### [facility] [address] [place] [address] Dr. Ibis Jimenez RBC 5.13 106/ul Normal 4.20-5.40 [facility] Comment on above: Performed By: #### A MM #### [facility] [address] [place] [address] Dr. Ibis Jimenez WBC 10.1 103/ul Normal 4.0-11.0 [facility] Comment on above: Performed By: #### A MM #### [facility] [address] [place] [address] Dr. Ibis Jimenez CREATININEon 10-02-2021 Creatinine [Mass/Vol] 0.69 mg/dL Normal 0.55-1.02 [facility] Comment on above: Performed By: #### C VDTBH #### [facility] [address] [place] [address] Dr. Ibis Jimenez EGFR-AF SWAZI >60 Normal >=60 [facility] Comment on above: Performed By: #### C VDTBH #### [facility] [address] [place] [address] Dr. Ibis Jimenez EGFR-NON AF SWAZI >60 Normal >=60 [facility] Comment on above: Performed By: #### C VDTBH #### [facility] [address] [place] [address] Dr. Ibis Jimenez CBC AUTO DIFFon 10-01-2021 BASO # 0.0 103/ul Normal 0.0-0.1 [facility] Comment on above: Performed By: #### A MM #### [facility] [address] [place] [address] Dr. Ibis Jimenez Basophils/100 WBC (Bld) 0.3 % Normal 0.2-2.0 [facility] Comment on above: Performed By: #### A MM #### [facility] [address] [place] [address] Dr. Ibis Jimenez EO # 0.1 103/ul Normal 0.0-0.7 [facility] Comment on above: Performed By: #### A MM #### [facility] [address] [place] [address] Dr. Ibis Jimenez Eosinophils/100 WBC (Bld) 1.9 % Normal 0.9-7.0 [facility] Comment on above: Performed By: #### A MM #### [facility] [address] [place] [address] Dr. Ibis Jimenez Erythrocyte distribution width (RBC) [Ratio] 12.7 % Normal 11.0-15.0 [facility] Comment on above: Performed By: #### A MM #### [facility] [address] [place] [address] Dr. Ibis Jimenez Hematocrit (Bld) [Volume fraction] 38.1 % Normal 36.0-48.0 [facility] Comment on above: Performed By: #### A MM #### [facility] [address] [place] [address] Dr. Ibis Jimenez Hemoglobin (Bld) [Mass/Vol] 12.7 g/dL Normal 12.0-16.0 [facility] Comment on above: Performed By: #### A MM #### [facility] [address] [place] [address] Dr. Ibis Jimenez IG # 0.02 10e3/ul Normal 0.00-0.03 [facility] Comment on above: Performed By: #### A MM #### [facility] [address] [place] [address] Dr. Ibis Jimenez IG % 0.3 % Normal 0.0-0.5 [facility] Comment on above: Performed By: #### A MM #### [facility] [address] [place] [address] Dr. Ibis Jimenez LYMPH # 1.9 103/ul Normal 1.2-3.8 [facility] Comment on above: Performed By: #### A MM #### [facility] [address] [place] [address] Dr. Ibis Jimenez Lymphocytes/100 WBC (Bld) 30.5 % Normal 20.5-60.0 [facility] Comment on above: Performed By: #### A MM #### [facility] [address] [place] [address] Dr. Ibis Jimenez MANUAL DIFF REQ NO Normal [facility] Comment on above: Performed By: #### A MM #### [facility] [address] [place] [address] Dr. Ibis Jimenez MCH (RBC) [Entitic mass] 28.3 pg Normal 26.7-34.0 [facility] Comment on above: Performed By: #### A MM #### [facility] [address] [place] [address] Dr. Ibis Jimenez MCHC (RBC) [Mass/Vol] 33.3 g/dL Normal 29.9-35.2 [facility] Comment on above: Performed By: #### A MM #### [facility] [address] [place] [address] Dr. Ibis Jimenez MCV (RBC) [Entitic vol] 85.0 fL Normal 81.0-99.0 [facility] Comment on above: Performed By: #### A MM #### [facility] [address] [place] [address] Dr. Ibis Jimenez MONO # 0.3 103/ul Normal 0.3-0.8 [facility] Comment on above: Performed By: #### A MM #### [facility] [address] [address] [address] Ibis Jimenez Monocytes/100 WBC (Bld) 5.2 % Normal 1.7-12.0 [facility] Comment on above: Performed By: #### A MM #### [facility] [address] [address] [address] Ibis Jimenez NEUT # 3.9 103/ul Normal 1.4-6.5 [facility] Comment on above: Performed By: #### A MM #### [facility] [address] [place] [address] Dr. Ibis Jimenez Neutrophils/100 WBC (Bld) 61.8 % Normal 43.0-75.0 [facility] Comment on above: Performed By: #### A MM #### [facility] [address] [place] [address] Dr. Ibis Jimenez Platelet mean volume (Bld) [Entitic vol] 9.7 fL Normal 9.5-13.5 [facility] Comment on above: Performed By: #### A MM #### [facility] [address] [place] [address] Dr. Ibis Jimenez PLT 255 103/ul Normal 150-450 [facility] Comment on above: Performed By: #### A MM #### [facility] [address] [place] [address] Dr. Ibis Jimenez RBC 4.48 106/ul Normal 4.20-5.40 [facility] Comment on above: Performed By: #### A MM #### [facility] [address] [place] [address] Dr. Ibis Jimenez WBC 6.3 103/ul Normal 4.0-11.0 [facility] Comment on above: Performed By: #### A MM #### [facility] [address] [place] [address] Dr. Ibis Jimenez PREG HCG QUALon 10-01-2021 , QUAL Negative Normal NEGATIVE [facility] Comment on above: Performed By: #### M DAVID #### [facility] [address] [place] [address] Dr. Ibis Jimenez Covid-19 PCR (CVDTB)on 09-20 SARS-CoV-2 (COVID-19) RNA SAURABH+probe Ql (Unsp spec) Not detected Normal NOT DETECTED [facility] Comment on above: Result Comment: This test is not yet approved or cleared by the [place] FDA. When there are no FDA-approved or cleared tests available, and other criteria are met, FDA can make tests available under an emergency access mechanism called an Emergency Use Authorization (EUA). The EUA for this test is supported by the [employer] of Health and Human Service's [...] By: #### B MP #### [facility] [address] [place] [address] Dr. Ibis Jimenez TYPE AND SCREENon 09-29-2021 TYPE AND SCREEN Negative Normal [facility] Comment on above: Performed By: #### B MP #### [facility] [address] [place] [address] Dr. Ibis Jimenez Covid-19 PCR (CVDTBH)on SARS-CoV-2 (COVID-19) RNA SAURABH+probe Ql (Unsp spec) Not detected Normal NOT DETECTED [facility] Comment on above: Result Comment: This test is not yet approved or cleared by the [place] FDA. When there are no FDA-approved or cleared tests available, and other criteria are met, FDA can make tests available under an emergency access mechanism called an Emergency Use Authorization (EUA). The EUA for this test is supported by the [place] of Health and Human Service's (HHS's) declaration [...] By: #### C VDTBH #### [facility] [address] [place] [address] Dr. Ibis Jimenez TYPE AND SCREENon 09-21-2021 TYPE AND SCREEN Negative Normal [facility] Comment on above: Performed By: #### B MP #### [facility] [address] [place] [address] Dr. Ibis Jimenez CHLAMYDIA/GONOCOCCUS SAURABH (SW AB/URINE/PAPon 08-17-2021 Chlamydia trachomatis, SAURABH Negative Normal Negative [facility] Comment on above: Performed By: #### A CET, SALYC #### [facility] [address] [place] [address] Dr. Ibis Jimenez Neisseria gonorrhoeae, SAURABH Negative Normal Negative [facility] Comment on above: Performed By: #### A CET, SALYC #### [facility] [address] [place] [address] Dr. Ibis Jimenez CBC AUTO DIFFon 08-14-2021 BASO # 0.0 103/ul Normal 0.0-0.1 [facility] Comment on above: Performed By: #### C VDTBH #### [facility] [address] [place] [address] Dr. Ibis Jimenez Basophils/100 WBC (Bld) 0.3 % Normal 0.2-2.0 [facility] Comment on above: Performed By: #### C VDTBH #### [facility] [address] [place] [address] Dr. Ibis Jimenez EO # 0.2 103/ul Normal 0.0-0.7 [facility] Comment on above: Performed By: #### C VDTBH #### [facility] [address] [place] [address] Dr. Ibis Jimenez Eosinophils/100 WBC (Bld) 2.5 % Normal 0.9-7.0 [facility] Comment on above: Performed By: #### C VDTBH #### [facility] [address] [place] [address] Dr. Ibis Jimenez Erythrocyte distribution width (RBC) [Ratio] 13.0 % Normal 11.0-15.0 [facility] Comment on above: Performed By: #### C VDTBH #### [facility] [address] [place] [address] Dr. Ibis Jimenez Hematocrit (Bld) [Volume fraction] 38.1 % Normal 36.0-48.0 [facility] Comment on above: Performed By: #### C VDTBH #### [facility] [address] [place] [address] Dr. Ibis Jimenez Hemoglobin (Bld) [Mass/Vol] 12.8 g/dL Normal 12.0-16.0 [facility] Comment on above: Performed By: #### C VDTBH #### [facility] [address] [place] [address] Dr. Ibis Jimenez IG # 0.02 10e3/ul Normal 0.00-0.03 [facility] Comment on above: Performed By: #### C VDTBH #### [facility] [address] [place] [address] Dr. Ibis Jimenez IG % 0.3 % Normal 0.0-0.5 [facility] Comment on above: Performed By: #### C VDTBH #### [facility] [address] [place] [address] Dr. Ibis Jimenez LYMPH # 1.5 103/ul Normal 1.2-3.8 [facility] Comment on above: Performed By: #### C VDTBH #### [facility] [address] [place] [address] Dr. Ibis Jimenez Lymphocytes/100 WBC (Bld) 22.5 % Normal 20.5-60.0 [facility] Comment on above: Performed By: #### C VDTBH #### [facility] [address] [place] [address] Dr. Ibis Jimenez MANUAL DIFF REQ NO Normal [facility] Comment on above: Performed By: #### C VDTBH #### [facility] [address] [place] [address] Dr. Ibis Jimenez MCH (RBC) [Entitic mass] 28.6 pg Normal 26.7-34.0 [facility] Comment on above: Performed By: #### C VDTBH #### [facility] [address] [place] [address] Dr. Ibis Jimenez MCHC (RBC) [Mass/Vol] 33.6 g/dL Normal 29.9-35.2 [facility] Comment on above: Performed By: #### C VDTBH #### [facility] [address] [place] [address] Dr. Ibis Jimenez MCV (RBC) [Entitic vol] 85.0 fL Normal 81.0-99.0 [facility] Comment on above: Performed By: #### C VDTBH #### [facility] [address] [place] [address] Dr. Ibis Jimenez MONO # 0.4 103/ul Normal 0.3-0.8 [facility] Comment on above: Performed By: #### C VDTBH #### [facility] [address] [place] [address] Dr. Ibis Jimenez Monocytes/100 WBC (Bld) 6.3 % Normal 1.7-12.0 [facility] Comment on above: Performed By: #### C VDTBH #### [facility] [address] [place] [address] Dr. Ibis Jimenez NEUT # 4.6 103/ul Normal 1.4-6.5 [facility] Comment on above: Performed By: #### C VDTBH #### [facility] [address] [place] [address] Dr. Ibis Jimenez Neutrophils/100 WBC (Bld) 68.1 % Normal 43.0-75.0 [facility] Comment on above: Performed By: #### C VDTBH #### [facility] [address] [address] [address] Ibis Jimenez Platelet mean volume (Bld) [Entitic vol] 9.8 fL Normal 9.5-13.5 [facility] Comment on above: Performed By: #### C VDTBH #### [facility] [address] [place] [address] Dr. Ibis Jimenez PLT 243 103/ul Normal 150-450 [facility] Comment on above: Performed By: #### C VDTBH #### [facility] [address] [place] [address] Dr. Ibis Jimenez RBC 4.48 106/ul Normal 4.20-5.40 [facility] Comment on above: Performed By: #### C VDTBH #### [facility] [address] [place] [address] Dr. Ibis Jimenez WBC 6.7 103/ul Normal 4.0-11.0 [facility] Comment on above: Performed By: #### C VDTBH #### [facility] [address] [place] [address] ABD/PELVIS WO CONon [...] Date: 2021-08-14 18:00 Normal [facility] ER URINE PROFILEon 2 Bilirubin Ql (U) SMALL Abnormal NEGATIVE [facility] Comment on above: Performed By: #### B MP #### [facility] [address] [place] [address] Dr. Ibis Jimenez Clarity (U) CLEAR Normal CLEAR [facility] Comment on above: Performed By: #### B MP #### [facility] [address] [place] [address] Dr. Ibsi Jimenez Color (U) YELLOW Normal YELLOW [facility] Comment on above: Performed By: #### B MP #### [facility] [address] [place] [address] Dr. Ibis Jimenez ERUSYLVAIN A micrscopic examination will be performed if indicated. Normal [facility] Comment on above: Performed By: #### B MP #### [facility] [address] [place] [address] Dr. Ibis Jimenez Glucose Ql (U) Negative Normal NEGATIVE [facility] Comment on above: Performed By: #### B MP #### [facility] [address] [place] [address] Dr. Ibis Jimenez Hemoglobin Ql (U) SMALL Abnormal NEGATIVE [facility] Comment on above: Performed By: #### B MP #### [facility] [address] [place] [address] Dr. Ibis Jimenez Ketones Ql (U) TRACE Abnormal NEGATIVE [facility] Comment on above: Performed By: #### B MP #### [facility] [address] [address] [address] Ibis Jimenez LEUKOCYTES Negative Normal NEGATIVE [facility] Comment on above: Performed By: #### B MP #### [facility] [address] [address] [address] Ibis iJmenez Nitrite Ql (U) Negative Normal NEGATIVE [facility] Comment on above: Performed By: #### B MP #### [facility] [address] [address] [address] Ibis Jimenez pH (U) 5.5 [pH] Normal 5-9 [facility] Comment on above: Performed By: #### B MP #### [facility] [address] [address] [address] Ibis Jimenez SPEC GRAVITY >=1.030 Abnormal 1.005-<=1.02 5 [facility] Comment on above: Performed By: #### B MP #### [facility] [address] [address] [address] Ibis Jimenez UA PROTEIN TRACE Normal NEGATIVE/ TRACE [facility] Comment on above: Performed By: #### B MP #### [facility] [address] [address] [address] Ibis Jimenez UR MICRO IND INDICATED Normal [facility] Comment on above: Performed By: #### B MP #### [facility] [address] [address] [address] Ibis Jimenez Urobilinogen Qn (U) 1.0 {Dinorah'U}/dL Normal 0.2 - 1. 0 [facility] Comment on above: Performed By: #### B MP #### [facility] [address] [address] [address] Ibis Jimenez URon 08-14-2021 , QUAL Negative Normal NEGATIVE [facility] Comment on above: Performed By: #### B MP #### [facility] [address] [place] [address] Dr. Ibis Jimenez PROF CHEM 8 (BAS METB)on Anion gap [Moles/Vol] 15.3 mmol/L Normal [facility] Comment on above: Performed By: #### B MP #### [facility] [address] [place] [address] Dr. Ibis Jimenez Calcium [Mass/Vol] 8.4 mg/dL Critically low 8.5-10.1 [facility] Comment on above: Performed By: #### B MP #### [facility] [address] [place] [address] Dr. Ibis Jimenze Chloride [Moles/Vol] 106 mmol/L Normal 98-107 [facility] Comment on above: Performed By: #### B MP #### [facility] [address] [place] [address] Dr. Ibis Jimenez CO2 [Moles/Vol] 22.3 mmol/L Normal 21.0-32.0 [facility] Comment on above: Performed By: #### B MP #### [facility] [address] [place] [address] Dr. Ibis Jimenez Creatinine [Mass/Vol] 0.75 mg/dL Normal 0.55-1.02 [facility] Comment on above: Performed By: #### B MP #### [facility] [address] [place] [address] Dr. Ibis Jimenez EGFR-AF SWAZI >60 Normal >=60 [facility] Comment on above: Performed By: #### B MP #### [facility] [address] [place] [address] Dr. Ibis Jimenez EGFR-NON AF SWAZI >60 Normal >=60 [facility] Comment on above: Performed By: #### B MP #### [facility] [address] [place] [address] Dr. Ibis Jimenez Glucose [Mass/Vol] 107 mg/dL Critically high 74-106 [facility] Comment on above: Performed By: #### B MP #### [facility] [address] [place] [address] Dr. Ibis Jimenez Potassium [Moles/Vol] 3.6 mmol/L Normal 3.5-5.1 [facility] Comment on above: Performed By: #### B MP #### [facility] [address] [address] [address] Ibis Jimenez Sodium [Moles/Vol] 140 mmol/L Normal 136-145 [facility] Comment on above: Performed By: #### B MP #### [facility] [address] [place] [address] Dr. Ibis Jimenez Urea nitrogen [Mass/Vol] 13.0 mg/dL Normal 7.0-18.0 [facility] Comment on above: Performed By: #### B MP #### [facility] [address] [place] [address] Dr. Ibis Jimenez Urea nitrogen/Creatinine [Mass ratio] 17.3 mg/mg Normal [facility] Comment on above: Performed By: #### B MP #### [facility] [address] [place] [address] Dr. Ibis Jimenez URINE MICROSCOPIC ONLYon BACTERIA TRACE Abnormal NONE SEEN [facility] Comment on above: Performed By: #### B MP #### [facility] [address] [place] [address] Dr. Ibis Jimenez Bacteria identified Cx Nom (U) NOT INDICATED Normal [facility] Comment on above: Performed By: #### B MP #### [facility] [address] [place] [address] Dr. Ibis Jimenez CAST NONE SEEN Normal NONE SEEN [facility] Comment on above: Performed By: #### B MP #### [facility] [address] [place] [address] Dr. Ibis Jimenez Crystals LM Nom (Urine sed) NONE SEEN Normal NONE SEEN [facility] Comment on above: Performed By: #### B MP #### [facility] [address] [place] [address] Dr. Ibis Jimenez Epithelial cells LM Ql (Urine sed) MANY Abnormal NONE SEEN /RARE [facility] Comment on above: Performed By: #### B MP #### [facility] [address] [place] [address] Dr. Ibis Jimenez MUCOUS SMALL Abnormal NONE SEEN [facility] Comment on above: Performed By: #### B MP #### [facility] [address] [place], [place] [address] Dr. Ibis Jimenez RBC 2-5 Abnormal 0-2 [facility] Comment on above: Performed By: #### B MP #### [facility] [address] [place], [place] [address] Dr. Ibis Jimenez WBC 2-5 Abnormal NONE SEEN [facility] Comment on above: Performed By: #### B MP #### [facility] [address] [place], [place] [address] Dr. Ibis Jimenez CBC Auto DifferentialOrdered By: Vielka Ching on 12-24-2020 Absolute Eos # 0.44 [facility] Work Phone: Absolute Immature Granulocyte 0.05 [employer] Work Phone: Absolute Lymph # 2.48 [employer] [facility] Work Phone: Absolute Dale # 0.55 [facility] Work Phone: Basophils (Bld) [#/Vol] 10*3/uL M [employer] Work Phone: Basophils/100 WBC (Bld) 0 % 0 - 2 % M [employer] Work Phone: Differential Type NOT REPORTED [employer] Phone: Eosinophils/100 WBC (Bld) 5 % High 1 - 4 % [employer] Phone: Hematocrit (Bld) [Volume fraction] 37.4 % 36.3 - 47.1 % [employer] Work Phone: Hemoglobin.gastrointest inal spec 1 Ql (Stl) 12.3 g/dL 11.9 - 15.1 g/dL [employer] Work Phone: Immature granulocytes/100 WBC (Bld) 1 % High 0 [employer] Work Phone: Interpretation and review of laboratory results Abnormal [employer] Phone: Lymphocytes/100 WBC (Bld) 30 % 24 - 43 % [employer] Phone: MCH (RBC) [Entitic mass] 28.5 pg 25.2 - 33.5 pg [employer] Phone: MCHC (RBC) [Mass/Vol] 32.9 g/dL 28.4 - 34.8 g/dL [employer] Phone: MCV (RBC) [Entitic vol] 86.8 fL 82.6 - 102.9 fL [employer] Phone: Monocytes/100 WBC (Bld) 7 % 3 - 12 % M [employer] Phone: NRBC Automated 0.0 0.0 per 100 WBC [employer] Phone: Platelet distribution width (Bld) [Ratio] 12.7 % 11.8 - 14.4 % [employer] Phone: Platelet Estimate NOT REPORTED [employer] Phone: Platelet mean volume (Bld) [Entitic vol] 9.4 fL 8.1 - 13.5 fL [employer] Phone: Platelets (Bld) [#/Vol] 252 10*3/uL [employer] Phone: RBC (Bld) [#/Vol] 4.31 10*6/uL 3.95 - 5.1 1 m/uL [employer] Phone: RBC (Bld) [#/Vol] NOT REPORTED [employer] Phone: Segmented neutrophils/100 WBC (Bld) 57 % 36 - 65 % [employer] Phone: Segs Absolute 4.78 [employer] Work Phone: WBC (Bld) [#/Vol] 8.3 10*3/uL [employer] Phone: WBC (Bld) [#/Vol] NOT REPORTED [facility] Work Phone: [facility] Work Phone: CBC with Diffon 12-24-2020 Abs. Basophil <0.03 Normal 0.00-0.20 [facility] Comment on above: Performed By: #### C MPX, CDP #### [address] [place] [address] [employer] Supervisor: Souleymane Pineda MD Abs.Imm.Granulocyte 0.05 k/uL Normal 0.00-0.30 [facility] Comment on above: Performed By: #### C MPX, CDP #### [address] [place], [place] [id number] [employer] Supervisor: Souleymane Pineda MD Abs.Neutrophil (Seg) 4.78 k/uL Normal 1.50-8.10 [facility] Comment on above: Performed By: #### C MPX, CDP #### [address] [place] [address] [employer] Supervisor: Souleymane Pineda MD Basophils/100 WBC (Bld) 0 % Normal 0-2 [facility] Comment on above: Performed By: #### C MPX, CDP #### [address] [place] [address] [employer] Supervisor: Souleymane Pineda MD Eosinophils (Bld) [#/Vol] 0.44 10*3/uL Normal 0.00-0.44 [facility] Comment on above: Performed By: #### C MPX, CDP #### [address] [place] [address] [employer] Supervisor: Souleymane Pineda MD Eosinophils/100 WBC (Bld) 5 % High 1-4 [facility] Comment on above: Performed By: #### C MPX, CDP #### [address] [place], [place] [id number] [employer] Supervisor: Souleymane Pineda MD Erythrocyte distribution width (RBC) [Ratio] 12.7 % Normal 11.8-14.4 [facility] Comment on above: Performed By: #### C MPX, CDP #### [facility] [address] [place], [place] [id number] [employer] Supervisor: Souleymane Pineda MD Hematocrit (Bld) [Volume fraction] 37.4 % Normal 36.3-47.1 [facility] Comment on above: Performed By: #### C MPX, CDP #### [facility] [address] [place], [place] [id number] [employer] Supervisor: Souleymane Pineda MD Hemoglobin (Bld) [Mass/Vol] 12.3 g/dL Normal 11.9-15.1 [facility] Comment on above: Performed By: #### C MPX, CDP #### [facility] [address] [place] [address] Dr[place], [place] [id number] [employer] Supervisor: Souleymane Pineda MD Immature granulocytes/100 WBC (Bld) 1 % High 0 [facility] Comment on above: Performed By: #### C MPX, CDP #### [address] [place], [place] [address] [employer] Supervisor: Souleymane Pineda MD Lymphocytes (Bld) [#/Vol] 2.48 10*3/uL Normal 1.10-3.70 [facility] Comment on above: Performed By: #### C MPX, CDP #### [facility] [address] [place], [place] [id number] [employer] Supervisor: Souleymane Pineda MD Lymphocytes/100 WBC (Bld) 30 % Normal 24-43 [facility] Comment on above: Performed By: #### C MPX, CDP #### [facility] [address] [place] [address] [employer] Supervisor: Souleymane Pineda MD MCH (RBC) [Entitic mass] 28.5 pg Normal 25.2-33.5 [facility] Comment on above: Performed By: #### C MPX, CDP #### [address] [place] [address] [employer] Supervisor: Souleymane Pineda MD MCHC (RBC) [Mass/Vol] 32.9 g/dL Normal 28.4-34.8 [facility] Comment on above: Performed By: #### C MPX, CDP #### [address] [place] [address] [employer] Supervisor: Souleymane Pineda MD MCV (RBC) [Entitic vol] 86.8 fL Normal 82.6-102.9 [facility] Comment on above: Performed By: #### C MPX, CDP #### [address] [place] [address] [employer] Supervisor: Souleymane Pineda MD Monocytes (Bld) [#/Vol] 0.55 10*3/uL Normal 0.10-1.20 [facility] Comment on above: Performed By: #### C MPX, CDP #### [address] [place], [place] [id number] [employer] Supervisor: Souleymane Pineda MD Monocytes/100 WBC (Bld) 7 % Normal 3-12 [facility] Comment on above: Performed By: #### C MPX, CDP #### [address] [place] [address] [employer] Supervisor: Souleymane Pineda MD Neutrophil (Seg) 57 % Normal 36-[address] [facility] Comment on above: Performed By: #### C MPX, CDP #### [address] [place] [address] [employer] Supervisor: Souleymane Pineda MD NRBC Automated 0.0 per 100 WBC Normal 0.0 [facility] Comment on above: Performed By: #### C MPX, CDP #### [facility] [address] [place], [place] [id number] [employer] Supervisor: Souleymane Pineda MD Platelet mean volume (Bld) [Entitic vol] 9.4 fL Normal 8.1-13.5 [facility] Comment on above: Performed By: #### C MPX, CDP #### [facility] [address] [place], [place] [phone] [employer] Supervisor: Souleymane Pineda MD Platelets (Bld) [#/Vol] 252 10*3/uL Normal 138-453 [facility] Comment on above: Performed By: #### C MPX, CDP #### [address] [place], [place] [phone] [employer] Supervisor: Souleymane Pineda MD RBC (Bld) [#/Vol] 4.31 10*6/uL Normal 3.95-5.11 [facility] Comment on above: Performed By: #### C MPX, CDP #### [address] [place], [place] [phone] [employer] Supervisor: Souleymane Pineda MD WBC (Bld) [#/Vol] 8.3 10*3/uL Normal 3.5-11.3 [facility] Comment on above: Performed By: #### C MPX, CDP #### [address] [place], [place] [id number] [employer] Supervisor: Souleymane Pineda MD Auto Diff Performed NOT REPORTED Normal [facility] Comment on above: Performed By: #### C MPX, CDP #### [address] [place], [place] [phone] [employer] Supervisor: Souleymane Pineda MD Platelet Comment NOT REPORTED Normal [facility] Comment on above: Performed By: #### C MPX, CDP #### [address] [place] [address] [employer] Supervisor: Souleymane Pineda MD RBC morphology finding Nom (Bld) NOT REPORTED Normal [facility] Comment on above: Performed By: #### C MPX, CDP #### [facility] [address] [place] [address] [employer] Supervisor: Souleymane Pineda MD WBC Morphology NOT REPORTED Normal [facility] Comment on above: Performed By: #### C MPX, CDP #### [facility] [address] [place] [address] [employer] Supervisor: Souleymane Pineda MD CT HEAD WO CONTRASTon [...] the orbits demonstrate no acute abnormality. SINUSES: [id number] paranasal sinus mucosal thickening. SOFT TISSUES/SKULL: No acute abnormality of the visualized skull or soft tissues. IMPRESSION: No acute intracranial abnormality. Interpreted by: Edwin Bentley MD Signed by: Edwin Bentley MD 12/24/20 Final result Normal [facility] CT Head WO ContrastOrdered B y: Vielka Ching on 12-24-2020 No acute intracranial abnormality. [facility] Work Phone: EXAMINATION: CT OF THE [...] the orbits demonstrate no acute abnormality. SINUSES: Bmkf-uf-ypafiwud paranasal sinus mucosal thickening. SOFT TISSUES/SKULL: No acute abnormality of the visualized skull or soft tissues. [employer] Phone: Dimitri, [facility] Incoming Radiant Results From [employer] - 12/24/2020 8:49 PM EDT EXAMINATION: CT [...] the orbits demonstrate no acute abnormality. SINUSES: Bren-kc-pfyulmhh paranasal sinus mucosal thickening. SOFT TISSUES/SKULL: No acute abnormality of the visualized skull or soft tissues. IMPRESSION: No acute intracranial abnormality. [employer] Phone: [employer] Phone: Comp Metabolic Pr/rfx MGon 1 02-24-2020 Bilirubin [Mass/Vol] mg/dL Low 0.3-1.2 [facility] Comment on above: Performed By: #### C MPX, CDP #### [facility] [address] [place] [address] [employer] Supervisor: Souleymane Pineda MD (cont.) Normal [facility] Comment on above: Result Comment: Aver age GFR for 20-29 years old: 116 mL/min/1.73sq m Chronic Kidney Disease: <60 mL/min/1.73sq m Kidney failure: <15 mL/min/1.73sq m eGFR calculated using average adult body mass. Additional eGFR calculator available at: http://www.[employer]/multiple_crcl_2011.htm Performed By: #### C MPX, CDP #### [facility] [address] [place] [address] [employer] Supervisor: Souleymane Pineda MD Albumin [Mass/Vol] 4.0 g/dL Normal 3.5-5.2 [facility] Comment on above: Performed By: #### C MPX, CDP #### [facility] [address] [place] [address] [employer] Supervisor: Souleymane Pineda MD Albumin/Glob Ratio 1.5 Normal 1.0-2.5 [facility] Comment on above: Performed By: #### C MPX, CDP #### [facility] [address] [place] [address] [employer] Supervisor: Souleymane Pineda MD Alkaline Phos 90 U/L Normal 35-104 [facility] Comment on above: Performed By: #### C MPX, CDP #### [facility] [address] [place] [address] [employer] Supervisor: Souleymane Pineda MD ALT [Catalytic activity/Vol] 40 U/L High 5-33 [facility] Comment on above: Performed By: #### C MPX, CDP #### [facility] [address] [place] [address] [employer] Supervisor: Souleymane Pineda MD Anion gap [Moles/Vol] 11 mmol/L Normal 9-17 [facility] Comment on above: Performed By: #### C MPX, CDP #### [facility] [address] [place] [address] [employer] Supervisor: Souleymane Pineda MD AST [Catalytic activity/Vol] 19 U/L Normal <32 [facility] Comment on above: Performed By: #### C MPX, CDP #### [facility] [address] [place], [place] [id number] [employer] Supervisor: Souleymane Pineda MD BUN/CRE Ratio 15 Normal 9-20 [facility] Comment on above: Performed By: #### C MPX, CDP #### [facility] [address] [place], [place] [address] [employer] Supervisor: Souleymane Pineda MD Calcium [Mass/Vol] 8.9 mg/dL Normal 8.6-10.4 [facility] Comment on above: Performed By: #### C MPX, CDP #### [facility] [address] [place], [place] [address] [employer] Supervisor: Souleymane Pineda MD Chloride [Moles/Vol] 104 mmol/L Normal 98-107 [facility] Comment on above: Performed By: #### C MPX, CDP #### [facility] [address] [place], [place] [phone] [employer] Supervisor: Souleymane Pineda MD CO2 [Moles/Vol] 24 mmol/L Normal 20-31 [facility] Comment on above: Performed By: #### C MPX, CDP #### [facility] [address] [place] [address] [employer] Supervisor: Souleymane Pineda MD Creatinine [Mass/Vol] 0.60 mg/dL Normal 0.50-0.90 [facility] Comment on above: Performed By: #### C MPX, CDP #### [facility] [address] [place], [place] [id number] [employer] Supervisor: Souleymane Pineda MD GFR, Amer >60 Normal >[address] [facility] Comment on above: Performed By: #### C MPX, CDP #### [facility] [address] [place], [place] [address] [employer] Supervisor: Souleymane Pineda MD GFR,non Amer >60 Normal >60 [facility] Comment on above: Performed By: #### C MPX, CDP #### [facility] [address] [place], [place] [address] [employer] Supervisor: Souleymane Pineda MD Glucose [Mass/Vol] 91 mg/dL Normal 70-99 [facility] Comment on above: Performed By: #### C MPX, CDP #### [facility] [address] [place], [place] [address] [employer] Supervisor: Souleymane Pineda MD Potassium [Moles/Vol] 4.0 mmol/L Normal 3.7-5.3 [facility] Comment on above: Performed By: #### C MPX, CDP #### [facility] [address] [place], [place] [address] [employer] Supervisor: Souleymane Pineda MD Protein [Mass/Vol] 6.7 g/dL Normal 6.4-8.3 [facility] Comment on above: Performed By: #### C MPX, CDP #### [facility] [address] [place], [place] [address] [employer] Supervisor: Souleymane Pineda MD Sodium [Moles/Vol] 139 mmol/L Normal 135-144 [facility] Comment on above: Performed By: #### C MPX, CDP #### [facility] [address] [place], [place] [address] [employer] Supervisor: Souleymane Pineda MD Staging: Normal [facility] Comment on above: Result Comment: Stag e 1: Some kidney damage normal GFR Stage 2: Mild kidney damage GFR 60-89 Stage 3: Moderate kidney damage GFR 30-59 Stage 4: Severe kidney damage GFR 15-29 Stage 5: Severe kidney damage GFR <15 ESRD - chronic treatment by dialysis or transplant Performed By: #### C MPX, CDP #### [facility] [address] [place] [address] [employer] Supervisor: Souleymane Pineda MD Urea nitrogen [Mass/Vol] 9 mg/dL Normal 6-20 [facility] Comment on above: Performed By: #### C MPX, CDP #### [facility] [address] [place] [address] [employer] Supervisor: Souleymane Pineda MD Comprehensive Metabolic Pane l w/ Reflex to MGOrdered By: Vielka Ching on 12-24-2020 Albumin [Mass/Vol] 4 g/dL 3.5 - 5.2 g/dL [employer] Phone: Albumin/Globulin [Mass ratio] 1.5 {ratio} [employer] Phone: ALP (Bld) [Catalytic activity/Vol] 90 U/L 35 - 104 U/L [facility] Phone: ALT [Catalytic activity/Vol] 40 U/L High 5 - 33 U/L [facility] Phone: Anion gap [Moles/Vol] 11 mmol/L 9 - 17 mmol/L [facility] Phone: AST [Catalytic activity/Vol] 19 U/L <32 [employer] Phone: Bilirubin [Mass/Vol] mg/dL Low 0.3 - 1 .2 mg/dL [employer] Phone: Calcium [Mass/Vol] 8.9 mg/dL 8.6 - 10. 4 mg/dL [employer] Phone: Chloride [Moles/Vol] 104 mmol/L 98 - 10 7 mmol/L [employer] Phone: CO2 [Moles/Vol] 24 mmol/L 20 - 31 mmol/L [employer] Phone: Creatinine [Mass/Vol] 0.6 mg/dL 0.50 - 0.90 mg/dL [employer] Phone: Free PSA/Total PSA [Mass fraction] 6.7 g/dL 6.4 - 8.3 g/dL [employer] Phone: GFR >60 >60 mL/min [employer] Phone: GFR Non- >60 >60 mL/min [employer] Phone: Glucose [Mass/Vol] 91 mg/dL 70 - 99 mg/dL [employer] Phone: Interpretation and review of laboratory results Abnormal [employer] Phone: Potassium [Moles/Vol] 4.0 mmol/L 3.7 - 5.3 mmol/L [employer] Phone: Sodium [Moles/Vol] 139 mmol/L 135 - 144 mmol/L [employer] Phone: Urea nitrogen (BldV) [Mass/Vol] 9 mg/dL 6 - 20 mg/dL [employer] Phone: Urea nitrogen/Creatinine (Bld) [Mass ratio] 15 [employer] Phone: [employer] Phone: Laboratory - Chemistry and C hemistry - challengeOrdered By: Vielka Ching on 12-24-2020 GFR/1.73 sq M.predicted MDRD (S/P/Bld) [Vol rate/Area] [employer] Phone: Comment on above: Average GFR for 20-2 9 years old: 116 mL/min/1.73sq m Chronic Kidney Disease: <60 mL/min/1.73sq m Kidney failure: <15 mL/min/1.73sq m eGFR calculated using average adult body mass. Additional eGFR calculator available at: http://www.[employer]/multiple_crcl_2012.htm Stage 1: Some kidney damage normal GFR Stage 2: Mild kidney damage GFR 60-89 Stage 3: Moderate kidney damage GFR 30-59 Stage 4: Severe kidney damage GFR 15-29 Stage 5: Severe kidney damage GFR <15 ESRD - chronic treatment by dialysis or transplant Vital Signs Date Time Vital Sign Value Performing Clinician Facility 02-09-2024 10:38-0500 Body height 154.9 cm Lamont Shay MD Work Phone: [facility] 02-09-2024 10:38-0500 Body mass index (BMI) [Ratio] 49.13 kg/m2 Lamont Shay MD Work Phone: [facility] 02-09-2024 10:38-0500 Body temperature 98.01 [degF] Lamont Shay MD Work Phone: [facility] 02-09-2024 10:38-0500 Body weight 117.94 kg Lamont Shay MD Work Phone: [facility] 02-09-2024 10:38-0500 Diastolic blood pressure 58 mm[Hg] Lamont Shay MD Work Phone: [facility] 02-09-2024 10:38-0500 Heart rate 111 /min Lamont Shay MD Work Phone: [facility] 02-09-2024 10:38-0500 Respiratory rate 22 /min Lamont Shay MD Work Phone: [facility] 02-09-2024 10:38-0500 SaO2% (BldA) [Mass fraction] 90 % Lamont Shay MD Work Phone: [facility] 02-09-2024 10:38-0500 Systolic blood pressure 118 mm[Hg] Lamont Shay MD Work Phone: [facility] 01-23-2024 13:28-0500 Body height 154.9 cm Lamont Shay MD Work Phone: [facility] 01-23-2024 13:28-0500 Body mass index (BMI) [Ratio] 52.91 kg/m2 Lamont Shay MD Work Phone: [facility] 01-23-2024 13:28-0500 Body temperature 98.4 [degF] Lamont Shay MD Work Phone: [facility] 01-23-2024 13:28-0500 Body weight 127.01 kg Lamont Shay MD Work Phone: [facility] 01-23-2024 13:28-0500 Diastolic blood pressure 74 mm[Hg] Lamont Shay MD Work Phone: [facility] 01-23-2024 13:28-0500 Heart rate 123 /min Lamont Shay MD Work Phone: [facility] 01-23-2024 13:28-0500 Respiratory rate 26 /min Lamont hSay MD Work Phone: [facility] 01-23-2024 13:28-0500 SaO2% (BldA) [Mass fraction] 87 % Lamont Shay MD Work Phone: [facility] 01-23-2024 13:28-0500 Systolic blood pressure 128 mm[Hg] Lamont Shay MD Work Phone: [facility] 01-22-2024 15:39-0500 Diastolic blood pressure 82 mm[Hg] Infusion 1 Work Phone: [facility] 01-22-2024 15:39-0500 Heart rate 97 /min Infusion 1 Work Phone: [facility] 01-22-2024 15:39-0500 Systolic blood pressure 135 mm[Hg] Infusion 1 Work Phone: [facility] 01-22-2024 13:35-0500 SaO2% (BldA) [Mass fraction] 97 % Infusion 1 Work Phone: [facility] Comment on above: on room air 01-19-2024 11:28-0500 Diastolic blood pressure 75 mm[Hg] Infusion 5 Work Phone: [facility] 01-19-2024 11:28-0500 Heart rate 88 /min Infusion 5 Work Phone: [facility] 01-19-2024 11:28-0500 Systolic blood pressure 126 mm[Hg] Infusion 5 Work Phone: [facility] 01-19-2024 10:00-0500 Body temperature 97.3 [degF] Infusion 5 Work Phone: [facility] 01-17-2024 11:09-0500 Diastolic blood pressure 69 mm[Hg] Infusion 6 Work Phone: [facility] 01-17-2024 11:09-0500 Heart rate 85 /min Infusion 6 Work Phone: [facility] 01-17-2024 11:09-0500 Systolic blood pressure 129 mm[Hg] Infusion 6 Work Phone: [facility] 01-09-2024 09:18-0500 Body height 154.9 cm Lamont Shay MD Work Phone: [facility] 01-09-2024 09:18-0500 Body mass index (BMI) [Ratio] 53.66 kg/m2 Lamont Shay MD Work Phone: [facility] 01-09-2024 09:18-0500 Body temperature 98.01 [degF] Lamont Shay MD Work Phone: [facility] 01-09-2024 09:18-0500 Body weight 128.82 kg Lamont Shay MD Work Phone: [facility] 01-09-2024 09:18-0500 Diastolic blood pressure 72 mm[Hg] Lamont Shay MD Work Phone: [facility] 01-09-2024 09:18-0500 Heart rate 101 /min Lamont Shay MD Work Phone: [facility] 01-09-2024 09:18-0500 Respiratory rate 20 /min Lamont Shay MD Work Phone: [facility] 01-09-2024 09:18-0500 SaO2% (BldA) [Mass fraction] 90 % Lamont Shay MD Work Phone: [facility] 01-09-2024 09:18-0500 Systolic blood pressure 140 mm[Hg] Lamont Shay MD Work Phone: [facility] 01-05-2024 13:38-0500 Diastolic blood pressure 83 mm[Hg] Infusion 8 Work Phone: [facility] 01-05-2024 13:38-0500 Heart rate 105 /min Infusion 8 Work Phone: [facility] 01-05-2024 13:38-0500 Systolic blood pressure 139 mm[Hg] Infusion 8 Work Phone: [facility] 11-15-2023 09:05-0400 Body height 154.9 cm Lamont Shay MD Work Phone: [facility] 11-15-2023 09:05-0400 Body mass index (BMI) [Ratio] 51.58 kg/m2 Lamont Shay MD Work Phone: [facility] 11-15-2023 09:05-0400 Body temperature 97.81 [degF] Lamont Shay MD Work Phone: [facility] 11-15-2023 09:05-0400 Body weight 123.83 kg Lamont Shay MD Work Phone: [facility] 11-15-2023 09:05-0400 Diastolic blood pressure 66 mm[Hg] Lamont Shay MD Work Phone: [facility] 11-15-2023 09:05-0400 Heart rate 60 /min Lamont Shay MD Work Phone: [facility] 11-15-2023 09:05-0400 Respiratory rate 24 /min Lamont Shay MD Work Phone: [facility] 11-15-2023 09:05-0400 Systolic blood pressure 126 mm[Hg] Lamont Shay MD Work Phone: [facility] 10-13-2023 13:51-0400 Diastolic blood pressure 74 mm[Hg] Infusion 8 Work Phone: [facility] 10-13-2023 13:51-0400 Heart rate 77 /min Infusion 8 Work Phone: [facility] 10-13-2023 13:51-0400 Systolic blood pressure 134 mm[Hg] Infusion 8 Work Phone: [facility] 10-10-2023 09:25-0400 Body height 154.9 cm Lamont Shay MD Work Phone: [facility] 10-10-2023 09:25-0400 Body mass index (BMI) [Ratio] 48.94 kg/m2 Lamont Shay MD Work Phone: [facility] 10-10-2023 09:25-0400 Body temperature 97.5 [degF] Lamont Shay MD Work Phone: [facility] 10-10-2023 09:25-0400 Body weight 117.48 kg Lamont Shay MD Work Phone: [facility] 10-10-2023 09:25-0400 Diastolic blood pressure 78 mm[Hg] Lamont Shay MD Work Phone: [facility] 10-10-2023 09:25-0400 Heart rate 88 /min Lamont Shay MD Work Phone: [facility] 10-10-2023 09:25-0400 Respiratory rate 22 /min Lamont Shay MD Work Phone: [facility] 10-10-2023 09:25-0400 SaO2% (BldA) [Mass fraction] 95 % Lamont Shay MD Work Phone: [facility] 10-10-2023 09:25-0400 Systolic blood pressure 116 mm[Hg] Lamont Shay MD Work Phone: [facility] 09-19-2023 14:22-0400 Body height 158.4 cm Koli Green MANAGER C[employer].INSPECTOR AIDE Work Phone: [facility] 09-19-2023 14:22-0400 Body mass index (BMI) [Ratio] 47.33 kg/m2 Koli Green MANAGER C[employer].INSPECTOR AIDE Work Phone: [facility] 09-19-2023 14:22-0400 Body temperature 99.1 [degF] Cameroni Green MANAGER C[employer].INSPECTOR AIDE Work Phone: [facility] 09-19-2023 14:22-0400 Body weight 118.75 kg Kolnisha Green MANAGER C[employer].INSPECTOR AIDE Work Phone: [facility] 09-19-2023 14:22-0400 Diastolic blood pressure 81 mm[Hg] Cameroni Green MANAGER C[employer].INSPECTOR AIDE Work Phone: [facility] 09-19-2023 14:22-0400 Heart rate 80 /min Logan Green MANAGER CENTER.INSPECTOR AIDE Work Phone: [facility] 09-19-2023 14:22-0400 Systolic blood pressure 115 mm[Hg] Logan Green MANAGER CENTER.INSPECTOR AIDE Work Phone: [facility] 08-18-2023 09:26-0400 Diastolic blood pressure 51 mm[Hg] Curtis Lepe PA-C Work Phone: [facility] 08-18-2023 09:26-0400 Heart rate 88 /min Curtis Lepe PA-C Work Phone: [facility] 08-18-2023 09:26-0400 SaO2% (BldA) [Mass fraction] 97 % Curtis Lepe PA-C Work Phone: [facility] 08-18-2023 09:26-0400 Systolic blood pressure 116 mm[Hg] Curtis Lepe PA-C Work Phone: [facility] 04-14-2023 11:08-0500 Diastolic blood pressure 62 mm[Hg] Infusion 7 Work Phone: [facility] 04-14-2023 11:08-0500 Heart rate 84 /min Infusion 7 Work Phone: [facility] 04-14-2023 11:08-0500 Systolic blood pressure 109 mm[Hg] Infusion 7 Work Phone: [facility] 04-13-2023 10:50-0500 Diastolic blood pressure 63 mm[Hg] Infusion 7 Work Phone: [facility] 04-13-2023 10:50-0500 Heart rate 86 /min Infusion 7 Work Phone: [facility] 04-13-2023 10:50-0500 Systolic blood pressure 127 mm[Hg] Infusion 7 Work Phone: [facility] 04-12-2023 13:45-0500 Diastolic blood pressure 58 mm[Hg] Infusion 7 Work Phone: [facility] 04-12-2023 13:45-0500 Heart rate 79 /min Infusion 7 Work Phone: [facility] 04-12-2023 13:45-0500 Systolic blood pressure 120 mm[Hg] Infusion 7 Work Phone: [facility] 11-11-2022 10:55-0400 Diastolic blood pressure 63 mm[Hg] Infusion 8 Work Phone: [facility] 11-11-2022 10:55-0400 Heart rate 83 /min Infusion 8 Work Phone: [facility] 11-11-2022 10:55-0400 Systolic blood pressure 110 mm[Hg] Infusion 8 Work Phone: [facility] 07-28-2022 10:15-0400 Diastolic blood pressure 50 mm[Hg] Infusion 8 Work Phone: [facility] 07-28-2022 10:15-0400 Heart rate 80 /min Infusion 8 Work Phone: [facility] 07-28-2022 10:15-0400 Systolic blood pressure 105 mm[Hg] Infusion 8 Work Phone: [facility] 12-03-2021 09:47-0400 Diastolic blood pressure 81 mm[Hg] Jesse Borrego MD Work Phone: [facility] 12-03-2021 09:47-0400 Heart rate 66 /min Jesse Borrego MD Work Phone: [facility] 12-03-2021 09:47-0400 SaO2% (BldA) [Mass fraction] 100 % Jesse Borrego MD Work Phone: [facility] 12-03-2021 09:47-0400 Systolic blood pressure 131 mm[Hg] Jessecristiana Borrego MD Work Phone: [facility] 10-20-2021 12:00-0400 Diastolic blood pressure 101 mm[Hg] Lucila Mota MD Work Phone: [facility] [employer] 10-20-2021 12:00-0400 Heart rate 85 /min Lucila Mota MD Work Phone: [facility] [employer] 10-20-2021 12:00-0400 Respiratory rate 12 /min Lucila Mota MD Work Phone: [facility] [employer] 10-20-2021 12:00-0400 SaO2% (BldA) [Mass fraction] 98 % Lucila Mota MD Work Phone: [facility] [employer] 10-20-2021 12:00-0400 Systolic blood pressure 136 mm[Hg] Lucila Mota MD Work Phone: [facility] [employer] 10-20-2021 08:00-0400 Body temperature 98.2 [degF] Lucila Mota MD Work Phone: [facility] [employer] 12-24-2020 19:36-0400 Body temperature 99 [degF] Vielka Ching DO Work Phone: [employer] Work Phone: 12-24-2020 19:36-0400 Diastolic blood pressure 80 mm[Hg] Vielka Ching DO Work Phone: [employer] Work Phone: 12-24-2020 19:36-0400 Heart rate 108 /min Vielka Cihng DO Work Phone: [employer] Work Phone: 12-24-2020 19:36-0400 Respiratory rate 20 /min Vielka Ching DO Work Phone: [employer] Work Phone: 12-24-2020 19:36-0400 SaO2% (BldA) [Mass fraction] 96 % Vielka Ching DO Work Phone: [facility] Work Phone: 12-24-2020 19:36-0400 Systolic blood pressure 136 mm[Hg] Vielka Ching DO Work Phone: [employer] Work Phone: Encounters Encounter Date Encounter Type Care Provider Facility Start: 02-16-2024 End: 02-16-2024 ambulatory Dariusz Estrada Facility:[facility] Start: 02-09-2024 End: 02-09-2024 Office outpatient visit 25 minutes Lamont Shay MD Work Phone: [facility] Comment on above: Generalized abdomina l pain (Primary Dx); Intractable nausea and vomiting; Mild persistent asthma with (acute) exacerbation ([facility]) Start: 02-09-2024 End: 02-09-2024 ambulatory LAMONT SHAY Not Available Start: 01-31-2024 End: 02-02-2024 Clinisync Result Encounter Generic External Data Provider [facility] External Department Unsolicited Start: 01-31-2024 End: 02-02-2024 Clinisync Result Encounter Generic External Data Provider [facility] External Department Unsolicited Start: 01-29-2024 End: 01-30-2024 Telephone encounter Logan Barth APRN.CNP Work Phone: Neurology [facility] Start: 01-24-2024 End: 01-24-2024 Orders Only Lamont Shay MD Work Phone: [facility] Comment on above: COVID-19 Start: 01-23-2024 End: 01-23-2024 Bamboo flowsheet Lamont Shay MD Work Phone: [facility] Start: 01-23-2024 End: 01-23-2024 Bamboo flowsheet Lamont Shay MD Work Phone: [facility] Start: 01-23-2024 End: 01-23-2024 Office outpatient visit 25 minutes Lamont Shay MD Work Phone: [facility] Comment on above: Mild persistent asth ma with (acute) exacerbation (CMS/HCC) (Primary Dx); Generalized edema; SOB (shortness of breath) on exertion Start: 01-23-2024 End: 01-23-2024 ambulatory LAMONT SHAY Not Available Start: 01-22-2024 End: 01-22-2024 Patient encounter procedure Raiza Morales MANAGER CENTER.INSPECTOR AIDE Work Phone: Neurology Comment on above: Chronic migraine wit hout aura, with intractable migraine, so stated, with status migrainosus (Primary Dx) Start: 01-22-2024 End: 01-22-2024 ambulatory Infusion Main Chair 1 Work Phone: Neurology Comment on above: Chronic migraine wit hout aura, with intractable migraine, so stated, with status migrainosus (Primary Dx); Intractable chronic migraine without aura and with status migrainosus Start: 01-20-2024 End: 01-22-2024 Refill Lamont Shay MD Work Phone: [facility] Comment on above: Pain, dental Start: 01-19-2024 End: 01-19-2024 ambulatory Infusion Main Chair 5 Work Phone: Neurology Comment on above: Chronic migraine wit hout aura, with intractable migraine, so stated, with status migrainosus (Primary Dx); Intractable chronic migraine without aura and with status migrainosus Start: 01-17-2024 End: 01-17-2024 ambulatory Infusion Main Chair 6 Work Phone: Neurology Comment on above: Chronic migraine wit hout aura, with intractable migraine, so stated, with status migrainosus (Primary Dx); Intractable chronic migraine without aura and with status migrainosus Start: 01-16-2024 End: 01-16-2024 ambulatory Logan Tab SEO Work Phone: Neurology [facility] Comment on above: Please help Start: 01-09-2024 End: 01-09-2024 Bamboo flowsheet Lamont Shay MD Work Phone: [facility] Start: 01-09-2024 End: 01-09-2024 Bamboo flowsheet Lamont Shay MD Work Phone: [facility] Start: 01-09-2024 End: 01-09-2024 Office outpatient visit 25 minutes Lamont Shay MD Work Phone: [facility] Comment on above: Mild persistent asth ma without complication (CMS/HCC) (Primary Dx); Class 3 severe obesity due to excess calories without serious comorbidity with body mass index (BMI) of 50.0 to 59.9 in adult (CMS/HCC); Fatigue, unspecified type; Mixed bipolar I disorder (CMS/HCC); Chronic migraine without aura without status migrainosus, not intractable (CMS/HCC); Pain, dental Start: 01-09-2024 End: 01-09-2024 ambulatory LAMONT SHAY Not Available Start: 01-05-2024 End: 01-05-2024 ambulatory Infusion Main Chair 8 Work Phone: Neurology Comment on above: Intractable chronic migraine without aura and without status migrainosus (Primary Dx) Start: 12-11-2023 End: 12-11-2023 Bamboo flowsheet Zay Roopa DO Work Phone: [facility] Start: 12-11-2023 End: 12-11-2023 Bamboo flowsheet Zay Roopa DO Work Phone: [facility] Start: 12-11-2023 End: 12-11-2023 ambulatory ZAY ROOPA Not Available Start: 12-05-2023 End: 12-05-2023 ambulatory Ольга Aguilar MANAGER CENTER.INSPECTOR AIDE Work Phone: Neurology Comment on above: Intractable chronic migraine without aura and without status migrainosus (Primary Dx) Start: 12-05-2023 End: 12-05-2023 Telemedicine consultation with patient Ольга Aguilar MANAGER CENTER.INSPECTOR AIDE Work Phone: Neurology Start: 11-15-2023 End: 11-15-2023 Bamboo flowsheet Lamont Shay MD Work Phone: [facility] Start: 11-15-2023 End: 11-15-2023 Bamboo flowsheet Lamont Shay MD Work Phone: [facility] Start: 11-15-2023 End: 11-15-2023 Office outpatient visit 15 minutes Lamont Shay MD Work Phone: [facility] Comment on above: Acute bronchitis due to other specified organisms (Primary Dx); Mixed bipolar I disorder (CMS/HCC) Start: 11-15-2023 End: 11-15-2023 ambulatory LAMONT SHAY Not Available Start: 11-10-2023 End: 11-10-2023 Refill Curtis Lepe PA-C Work Phone: Neurology Comment on above: Refill Request Start: 11-06-2023 End: 11-06-2023 Orders Only Ronit Mustafa PHOTO CARTOGRAPHER Work Phone: [facility] Comment on above: Severe persistent as thma without complication (CMS/HCC) Start: 10-13-2023 End: 10-13-2023 ambulatory Infusion Main Chair 8 Work Phone: Neurology Comment on above: Intractable chronic migraine without aura and without status migrainosus (Primary Dx) Start: 10-10-2023 End: 10-10-2023 Bamboo flowsheet Lamont Shay MD Work Phone: [facility] Start: 10-10-2023 End: 10-10-2023 Bamboo flowsheet Lamont Shay MD Work Phone: [facility] Start: 10-10-2023 End: 10-10-2023 Office outpatient visit 15 minutes Lamont Shay MD Work Phone: [facility] Comment on above: Acute bronchitis due to other specified organisms (Primary Dx); Mild persistent asthma with (acute) exacerbation ([facility]) Start: 10-10-2023 End: 10-10-2023 ambulatory LAMONT SHAY Not Available Start: 09-25-2023 End: 09-25-2023 ambulatory ZAY BLAS Not Available Start: 09-19-2023 End: 09-19-2023 ambulatory LOGAN BARTH Facility:[facility] Start: 09-19-2023 End: 09-19-2023 Patient encounter procedure Logan Barth APRN.INSPECTOR AIDE Work Phone: Neurology [facility] Comment on above: Intractable chronic migraine without aura and without status migrainosus (Primary Dx) Start: 08-21-2023 End: 08-21-2023 ambulatory LEW KAVITA Not Available Start: 08-18-2023 End: 08-18-2023 ambulatory CURTIS LEPE Facility:[facility] Start: 08-18-2023 End: 08-18-2023 Patient encounter procedure Curtis Lepe PA-C Work Phone: Neurology Comment on above: Intractable chronic migraine without aura and without status migrainosus (Primary Dx); Psychogenic nonepileptic seizure Start: 08-16-2023 ambulatory Logan Barth APR N.INSPECTOR AIDE Work Phone: Neurology [facility] Start: 08-16-2023 Subsequent hospital visit by physician Logan Barth APRN.INSPECTOR AIDE Work Phone: Neurology [facility] Comment on above: Hospital visit Start: 08-08-2023 ambulatory Logan Barth APR N.INSPECTOR AIDE Work Phone: Neurology [facility] Comment on above: Injection Start: 07-10-2023 End: 07-10-2023 ambulatory Logan Barth MANAGER CENTER.INSPECTOR AIDE Work Phone: Neurology [facility] Comment on above: Intractable chronic migraine without aura and without status migrainosus (Primary Dx) Start: 07-10-2023 End: 07-10-2023 Telemedicine consultation with patient Logan Tab SEO Work Phone: Neurology Headache [facility] Start: 06-26-2023 ambulatory Ольга Lantigua Brendan zazueta APRN.CNP Work Phone: Neurology Comment on above: Concern [...] Start: 04-12-2023 End: 04-12-2023 ambulatory SUZAN DRIVER Facility:[facility] Start: 04-12-2023 End: 04-12-2023 Patient encounter [...] Telephone encounter Angely rousseau RN Work Phone: [facility] Comment on above: Insurance Authorizat ion (Aimovig 70MG/ML auto-injectors/) Start: 03-23-2023 End: 03-23-2023 ambulatory LOGAN BARTH Facility:[facility] Start: 03-22-2023 End: 03-22-2023 ambulatory SUZAN DRIVER Facility:[facility] Start: 03-21-2023 End: 03-21-2023 ambulatory LAMONT NADERER Not Available Start: 03-20-2023 End: 03-20-2023 ambulatory ZAY ROOPA Not Available Start: 03-07-2023 End: 03-07-2023 ambulatory ZAY ROOPA Not Available Start: 12-13-2022 Refill Logan Barth APR N.INSPECTOR AIDE Work Phone: Neurology Head[facility] Comment on above: Refill Request Infusion (HEADACHE I NFUSIONS) Start: 12-09-2022 Refill Ольга zazueta MANAGER CENTER.INSPECTOR AIDE Work Phone: Neurology Comment on above: Refill Request Start: 11-11-2022 End: 11-11-2022 ambulatory Infusion Main Chair 8 Work Phone: Neurology Comment on above: Intractable chronic migraine without aura and with status migrainosus (Primary Dx) Start: 11-10-2022 End: 11-10-2022 ambulatory Ольга Aguilar MANAGER CENTER.INSPECTOR AIDE Work Phone: Neurology Comment on above: Intractable chronic migraine without aura and with status migrainosus (Primary Dx) Nerve block Start: 11-10-2022 Telephone encounter Suzan dinero MANAGER CENTER.INSPECTOR AIDE Work Phone: Neurology Comment on above: Infusion Start: 11-10-2022 End: 11-10-2022 Telemedicine consultation with patient Ольга Aguilar MANAGER CENTER.INSPECTOR AIDE Work Phone: [facility] Start: 10-12-2022 ambulatory Suzan Callahan [place] MANAGER CENTER.INSPECTOR AIDE Work Phone: Neurology Comment on above: Botox Start: 10-12-2022 E-mail encounter fro m caregiver Suzan Driver MANAGER CENTER.INSPECTOR AIDE Work Phone: [facility] Start: 09-29-2022 Telephone encounter Angely rousseau RN Work Phone: [facility] Comment on above: Insurance Authorizat ion (Zomig 5MG nasal spray/) Start: 09-27-2022 ambulatory Logan Barth APR N.INSPECTOR AIDE Work Phone: [facility] Comment on above: My apt Monday Start: 09-16-2022 ambulatory Logan Barth APR N.INSPECTOR AIDE Work Phone: [facility] Start: 09-16-2022 Patient encounter procedure Logan Barth MANAGER CENTER.INSPECTOR AIDE Work Phone: [facility] Comment on above: Appointment Start: 08-31-2022 End: 08-31-2022 ambulatory Logan Barth MANAGER CENTER.INSPECTOR AIDE Work Phone: Neurology Comment on above: Chronic migraine w/o aura, not intractable, w/o stat migr (Primary Dx) Start: 08-31-2022 End: 08-31-2022 Telemedicine consultation with patient Logan Barth MANAGER CENTER.INSPECTOR AIDE Work Phone: [facility] Start: 08-09-2022 ambulatory Logan Green APR N.INSPECTOR AIDE Work Phone: [facility] Comment on above: Pain Start: 08-08-2022 End: 08-08-2022 ambulatory Jesse Borrego MD Work Phone: Neurology Comment on above: Intractable chronic migraine without aura and with status migrainosus (Primary Dx) Start: 08-08-2022 End: 08-08-2022 Telemedicine consultation with patient Jesse Borrego Work Phone: [facility] Start: 08-07-2022 ambulatory Jesse rick Work Phone: Neurology Comment on above: Name of medication Start: 07-28-2022 End: 07-28-2022 ambulatory Infusion Main Chair 8 Work Phone: Neurology Comment on above: Intractable chronic migraine without aura and with status migrainosus (Primary Dx) Start: 07-21-[address] ZAY BLAS . Facili ty:[facility] Start: 07-14-2022 Encounter for other preprocedural examination DR ZAY BLAS . [facility] Start: 07-12-2022 End: 07-13-[address] ZAY BLAS . Facility:[facility] Start: 07-12-2022 End: 07-13-2022 Encounter for other preprocedural examination DR ZAY BLAS . Facility:[facility] Start: 07-05-2022 ambulatory KRISTOFER Nunn acility:[facility] Start: 06-27-2022 Telephone encounter Logan Barth APRN.INSPECTOR AIDE Work Phone: Neurology Comment on above: Appointment (infusio n) Start: 06-20-2022 End: 06-20-2022 ambulatory MANJINDER DEAL Facility:[facility] Start: 06-19-2022 End: 06-19-2022 ambulatory CHAYITO NARVAEZ . Facility:[facility] Start: 06-13-2022 Admission to establishment Jesse Borrego Work Phone: Neurology Comment on above: Admission Start: 06-13-2022 ambulatory Jesse Rainey merline MORENO Work Phone: [facility] Start: 06-11-2022 End: 06-11-2022 ambulatory DENNIS ALSTON . Facility:[facility] Start: 06-08-2022 End: 06-08-2022 ambulatory MARY PAULINO . Facility:[facility] Start: 06-07-2022 ambulatory Jesse Rainey merline MORENO Work Phone: Neurology Comment on above: Migraines [...] with patient Nelly Saldaña PA-C Work Phone: [facility] Start: 11-09-2021 ambulatory Tyrone Dolan MD, PhD Work Phone: [facility] Start: 11-09-2021 Patient encounter procedure Tyrone Dolan MD, PhD Work Phone: Neurology Comment on above: Request Veido appoin tment Start: 11-08-2021 ambulatory Tyrone Dolan MD, PhD Work Phone: [facility] Start: 11-08-2021 Patient encounter procedure [...] Dolan MD, PhD Work Phone: [facility] Start: 10-26-2021 Patient encounter procedure Román Storey MD Work Phone: Neurology Comment on above: Seizure-like activit y (HCC) (Primary Dx) Start: 10-19-2021 End: 10-20-2021 Evaluation and management of inpatient LUCILA MURPHYG SVETLANA [facility] Start: 10-19-2021 End: 10-20-2021 Evaluation and management of inpatient Lucila Mota MD Work Phone: [address] Neuro ICU Start: 10-19-2021 End: 10-19-2021 ambulatory SHAIKH Joseph WALLS Facility:[facility] Start: 10-07-2021 End: 10-07-[address] ZAY LBAS . Facility:[facility] Start: 10-06-2021 End: 10-06-2021 ambulatory SUKHDEEP DOCKERY Facility:[facility] Start: 10-03-2021 End: 10-04-2021 ambulatory MANJINDER DEAL Facility:[facility] Start: 10-01-2021 End: 10-02-2021 Evaluation and management of inpatient DR ANGÉLICA ARTHUR Facility:[facility] Start: 10-01-2021 Encounter for preprocedural laboratory examination DR ZAY BLAS . [facility] Start: 09-29-2021 End: 09-30-[address] [...] End: 12-24-2020 Emergency department patient visit ANGÉLICA Santiago SANDHYA [facility] Start: 12-24-2020 End: 12-24-2020 Emergency department patient visit Vielka Ching DO Work Phone: [facility] ED Comment on above: Migraine without sta tus migrainosus, not intractable, unspecified migraine type (Primary Dx) Start: 02-18-2020 End: 02-18-2020 Telephone encounter Román Storey Work Phone: Neurology Comment on above: Future Appointment ( [place], [place], [place]) Procedures Date Procedure Procedure Detail Performing Clinician Start: 01-31-2024 Bacteria identified in Urine by Culture Generic External Data Provider Start: 10-29-2021 Adult depression scr eening assessment Tyrone Dolan MD, PhD Work Phone: Start: 10-20-2021 EEG VIDEO MONITORING Marcy altman Chris MANAGER CENTER - INSPECTOR AIDE Work Phone: Start: 10-20-2021 BASIC METABOLIC PANE L W/ REFLEX TO MG FOR LOW K Puri Rikki Mota MD Work Phone: Start: 10-20-2021 Blood count complete auto&auto difrntl wbc Lo Perez MANAGER CENTER - INSPECTOR AIDE Work Phone: Start: 10-20-2021 IMMATURE PLATELET FRACTION Lo Perez MANAGER CENTER - INSPECTOR AIDE Work Phone: Start: 10-19-2021 Assay of lactate Madiso radha Perez MANAGER CENTER - INSPECTOR AIDE Work Phone: Start: 10-19-2021 Ecg routine ecg w/le ast 12 lds w/i&r Lo Perez MANAGER CENTER - INSPECTOR AIDE Work Phone: Start: 10-19-2021 Mri brain brain stem w/o w/contrast material Lo Perez MANAGER CENTER - INSPECTOR AIDE Work Phone: Start: 10-19-2021 RESPIRATORY CARE EVALUATION ONLY Lo Perez MANAGER CENTER - INSPECTOR AIDE Work Phone: Start: 10-01-2021 Resection of Bilater [...] vaccine (7 - Td or Tdap) [facility] Start: 09-20-2025 Urine microalbumin profile [facility] Start: 03-22-2024 End: 03-22-2024 ambulatory 03/22/2024 1:30 PM EST Infusion Center Neurology [address] [place] [address] [facility] Neurology Comment on above: [facility] infusion Start: 02-22-2024 End: 02-22-2024 Patient encounter procedure 02/22/2024 11:15 AM EST Office Visit [facility] [address] [place] [address] Lamont Shay MD [address] [place] [id number] [facility] Start: 02-09-2024 End: 02-08-2025 CT Abdomen and Pelvis WO and W contrast IV CT abdomen pelvis w and wo IV contrast Imaging Routine Generalized abdominal pain Intractable nausea and vomiting Expected: 02/09/2024, Expires: 02/08/2025 [facility] Work Phone: Comment on above: Expected: 02/09/2024 , Expires: 02/08/2025 Start: 02-05-2024 End: 02-05-2024 ambulatory 02/05/2024 1:45 PM EST [facility] Neurology [facility] [address] [place] [address] Logan Barth APRN.INSPECTOR AIDE [address] [place] [address] [facility] Comment on above: [facility] Start: 01-24-2024 End: 01-24-2024 Patient encounter procedure 01/24/2024 3:20 PM EST Office Visit [facility] OB [address] [place] [address] Zay Blas, [address] [place] [address] [facility] Start: 01-23-2024 End: 01-22-2025 Basic metabolic 1998 panel - Serum or Plasma Basic metabolic panel Lab Routine Generalized edema Expected: 01/23/2024 (Approximate), Expires: 01/22/2025 [facility] Comment on above: Expected: 01/23/2024 (Approximate), Expires: 01/22/2025 Start: 01-23-2024 End: 01-22-2025 CBC W Auto Differential panel - Blood CBC and differential Lab Routine Generalized edema SOB (shortness of breath) on exertion Expected: 01/23/2024 (Approximate), Expires: 01/22/2025 [facility] Comment on above: Expected: 01/23/2024 (Approximate), Expires: 01/22/2025 Start: 01-23-2024 End: 01-22-2025 Hepatic function 2000 panel - Serum or Plasma Hepatic function panel Lab Routine Generalized edema SOB (shortness of breath) on exertion Expected: 01/23/2024 (Approximate), Expires: 01/22/2025 [facility] Comment on above: Expected: 01/23/2024 (Approximate), Expires: 01/22/2025 Start: 01-23-2024 End: 01-22-2025 Natriuretic peptide B [Mass/volume] in Blood B-type natriuretic peptide Lab Routine Generalized edema Expected: 01/23/2024 (Approximate), Expires: 01/22/2025 [facility] Comment on above: Expected: 01/23/2024 (Approximate), Expires: 01/22/2025 Start: 01-23-2024 End: 01-22-2025 XR Chest 2 Views XR chest 2 views Imaging Routine Mild persistent asthma with (acute) exacerbation ([facility]/HCC) Generalized edema SOB (shortness of breath) on exertion Expected: 01/23/2024, Expires: 01/22/2025 [facility] Work Phone: Comment on above: Expected: 01/23/2024 , Expires: 01/22/2025 Start: 01-23-2024 End: 01-23-2024 Patient encounter procedure [facility] Comment on above: Arrived Start: 01-22-2024 End: 01-22-2024 Patient encounter procedure 01/22/2024 2:30 PM EST Office Visit Neurology [address] [place] [address] Raiza Morales, MANAGER CENTER.INSPECTOR AIDE [address] [place] [address] Infusion Day #3 Neurology Comment on above: Infusion Day #3 Start: 01-22-2024 End: 01-22-2024 ambulatory 01/22/2024 2:00 PM EST Infusion Center Neurology [address] [place] [address] Non-[facility] Infusion Day #3 Neurology Comment on above: Non-[facility] Infusion Day #3 Start: 01-19-2024 End: 01-19-2024 ambulatory 01/19/2024 9:30 AM EST Infusion Center Neurology [address] [place] [address] Non-[facility] Infusion Day #2 Neurology Comment on above: Non-[facility] Infusion Day #2 Start: 01-09-2024 End: 01-09-2024 Patient encounter procedure [facility] Comment on above: Arrived Start: 01-05-2024 End: 01-05-2024 ambulatory 01/05/2024 1:00 PM EST Infusion Center Neurology [address] [place] [address] [facility] Comment on above: [facility] Start: 12-12-2023 End: 12-12-2023 Patient encounter procedure 12/12/2023 3:45 PM EDT Office Visit [facility] [address] [place] [address] Lamont Shay MD [address] [place] [id number] [facility] Start: 12-11-2023 End: 12-11-2023 Patient encounter procedure 12/11/2023 1:00 PM EDT Office Visit [facility] [address] [facility] [address] Zay Blas DO [address] [place], [place] [id number] Arrived [facility] Comment on above: Arrived Start: 11-15-2023 End: 11-15-2023 Patient encounter procedure 11/15/2023 8:45 AM EDT Office Visit [facility] [address] [place] [address] Lamont Shay MD [address] [place] [id number] Arrived [facility] Comment on above: Arrived Start: 11-06-2023 End: 11-06-2023 Patient encounter procedure 11/06/2023 11:30 AM EDT Office Visit [facility] [address] [facility] [address] [place] [address] Jose Martin Lopez MD [address] [facility] [address] [place] [id number] [facility] Start: 10-31-2023 End: 10-31-2023 Patient encounter procedure 10/31/2023 2:30 PM EDT Office Visit Neurology [address] [place], [place] [id number] Tyrone Dolan MD, PhD [address] [place] [address] Seizure Neurology Comment on above: Seizure Start: 10-22-2023 Covid-19 Vaccine ( season) Covid-19 Vaccine () [facility] Start: 10-22-2023 Covid-19 Vaccine ( season) Covid-19 Vaccine () [facility] Start: 10-22-2023 Influenza vaccination C [facility] Start: 10-13-2023 End: 10-13-2023 ambulatory 10/13/2023 1:00 PM EDT Infusion Center Neurology [address] [place] [address] [facility] Comment on above: [facility] Start: 10-10-2023 End: 10-10-2023 Patient encounter procedure 10/10/2023 9:15 AM EDT Office Visit [facility] [address] [place] [address] Lamont Shay MD [address] [place] [address] Arrived [facility] Comment on above: Arrived Start: 09-19-2023 End: 09-19-2023 Patient encounter procedure 09/19/2023 2:30 PM EDT Office Visit Neurology [facility] [address] [place] [address] Logan Barth APRN.INSPECTOR AIDE [address] [place] [address] Migraines Nerve Block Neurology [facility] Comment on above: Migraines Nerve Bloc k Start: 08-18-2023 End: 08-18-2023 Patient encounter procedure 08/18/2023 9:30 AM EDT Office Visit Neurology [address] [place] [address] Curtis Lepe PA-C [address] [address] NERVE BLOCK Neurology Comment on above: NERVE BLOCK Start: 02-20-2023 Depression Assessment Depression Ass [facility] Start: 10-29-2022 Adult depression screening assessment DEPRESSION SCREENING [facility] Start: 10-21-2022 Covid-19 Vaccine ( season) Covid-19 Vaccine () [facility] Start: 10-21-2022 Influenza vaccination C [facility] Start: 02-20-2022 DEPRESSION ASSESSMENT DEPRESSION ASS [facility] Start: 10-26-2021 End: 10-26-2022 SARS-CoV-2 (COVID-19) RNA [Presence] in Respiratory specimen by SAURABH with probe detection PRE-PROCEDURE & PRE-OPERATIVE COVID Microbiology Routine Seizure-like activity (HCC) Expected: 10/26/2021, Expires: 10/26/2022 [facility] Work Phone: Comment on above: Expected: 10/26/2021 , Expires: 10/26/2022 Start: 10-21-2021 Influenza vaccination B [facility] Start: 02-20-2021 DEPRESSION ASSESSMENT DEPRESSION ASS [facility] Start: 10-21-2020 Influenza vaccination Flu vaccine (# 1) [facility] Work Phone: Start: 11-13-2016 PAP TESTING PAP TESTING [facility] Start: 11-13-2016 Screening for malign ant neoplasm of cervix [facility] Start: 11-13-2014 Urine microalbumin profile [facility] Start: 11-13-2013 Anxiety Screening Anxiety Screening [facility] Start: 11-13-2013 Depression Screening Depression Scre ening [facility] Start: 11-13-2013 Hepatitis C screening B [facility] Start: 11-13-2013 HEPATITIS C SCREENING HEPATITIS C SC ELINING [facility] Start: 11-13-2013 HIV SCREENING HIV SCREENING [facility] Start: 11-13-2013 HIV screening HIV Screening [facility] Start: 2011 Screening for Chlamy rose trachomatis Chlamydia screen [facility] Start: 11-13-2010 HIV screening HIV screen [facility] Start: 11-13-2009 PEDS TO ADULT TRANSITION ANNUAL ASSESSMENT PEDS TO ADULT TRANSITION ANNUAL ASSESSMENT [facility] Start: 2007 Adult depression screening assessment DEPRESSION SCREENING [facility] Start: 2007 COVID-19 Vaccine (1) COVID-19 Vaccin e (1) [employer] Phone: Start: 2007 Depression Screen [facility] Start: 2007 PEDS TO ADULT TRANSITION INITIAL DISCUSSION PEDS TO ADULT TRANSITION INITIAL DISCUSSION [facility] Start: 11-13-2006 HPV VACCINE (1 - 2-d ose series) HPV VACCINE (1 - 2-dose series) [facility] Start: 11-13-2004 HPV VACCINE (1 - 2-d ose series) HPV VACCINE (1 - 2-dose series) [facility] Start: 05-13-1996 COVID-19 Vaccine (#1) COVID-19 Vacci ne (#1) [facility] Start: 1995 HEPATITIS B (1 of 3 - 3-dose series) HEPATITIS B (1 of 3 - 3-dose series) [facility] Start: 1995 Hepatitis B Vaccine (1 of 3 - 3-dose series) Hepatitis B Vaccine (1 of 3 - 3-dose series) [facility] Start: 1995 Hepatitis C screening Hepatitis C az radha [employer] Phone: Bacteria identified in Urine by Culture URINE CULTURE, ROUTINE Lab Routine 01/31/2024 11:57 AM [facility] End: 10-26-2021 Basic Metabolic Panel w/ Reflex to MG Basic Metabolic Panel w/ Reflex to MG Lab Routine Daily for 7 Days starting 10/20/2021 until 10/26/2021 [facility] Phone: Comment on above: Daily for 7 Days sta rting 10/20/2021 until 10/26/2021 End: 10-26-2021 CBC W Auto Differential panel - Blood CBC with Auto Differential Lab Routine Daily for 7 Days starting 10/20/2021 until 10/26/2021, 1 completed [facility] Phone: Comment on above: Daily for 7 Days sta rting 10/20/2021 until 10/26/2021, 1 completed EKG 12 Lead EKG 12 Lead ECG Routine 10/19/2021 5:55 PM EDT [facility] Phone: End: 10-29-2022 EPIL AMBULATORY EEG [facility] AMBULATORY EEG NEUROLOGY Routine Psychogenic nonepileptic seizure Spells of trembling 1 Occurrences starting 10/29/2021 until 10/29/2022 [facility] Work Phone: Comment on above: 1 Occurrences starti ng 10/29/2021 until 10/29/2022 End: 10-26-2022 EPIL EEG LEAD PLACEMENT EPIL EEG LEAD PLACEMENT NEUROLOGY Routine Seizure-like activity (HCC) 1 Occurrences starting 10/26/2021 until 10/26/2022 [facility] Work Phone: Comment on above: 1 Occurrences starti ng 10/26/2021 until 10/26/2022 End: 11-08-2022 EPIL EEG ROUTINE EPIL EEG ROUTINE NEUROLOGY Routine Seizure-like activity (HCC) 1 Occurrences starting 11/08/2021 until 11/08/2022 [facility] Work Phone: Comment on above: 1 Occurrences starti ng 11/08/2021 until 11/08/2022 EPIL VEEG ADMIT TO EMU/PMU EPIL VEEG ADMIT TO EMU/PMU NEUROLOGY Routine Seizure-like activity (HCC) Ordered: 10/26/2021 [facility] Work Phone: Comment on above: Ordered: 10/26/2021 Oxygen therapy [[facility] Data Set] Initiate Oxygen Therapy Protocol Respiratory Care Routine As Needed until discontinued starting 10/19/2021 [facility] Work Phone: Comment on above: As Needed until disc ontinued starting 10/19/2021 [facility] Immunizations Immunization Date Immunization Notes Care Provider Preethi black 12-08-2017 influenza virus vacc ine, unspecified formulation Suzan Driver APRN.CNP Work Phone: [facility] Payers Date Payer Category Payer Medicaid (Managed Care) [employer] [id number] 2022 Self-pay 2017 Medicaid [employer] [id number] 2017-Present Medicaid [id number] 2013 Medicaid [id number] [id number]. [id number] 2011 Unknown 1995 Unknown [id number] 2.16.840.1.941683.3.579.2. 173 1995 Unknown [id number] 2.16.840.1.430810.3.579.2. 175 1995 Unknown [id number] 2.16.840.1.908358.3.579.2. 727 1995 Unknown [id number] 2.16.840.1.801920.3.579.2. 593 1995 Unknown [id number] 2.16.840.1.888860.3.579.2. 593 1995 Unknown [id number] 2.16.840.1.699201.3.579.2. 593 1995 Unknown [id number] 2.16.840.1.081240.3.579.2. 593 1995 Unknown [id number] 2.16.840.1.611808.3.579.2. 593 1995 Unknown [id number] 2.16.840.1.116187.3.579.2. 593 1995 Unknown [id number] 2.16.840.1.917382.3.579.2. 593 1995 Unknown [id number] 2.16.840.1.948364.3.579.2. 593 1995 Unknown [id number] 2.16.840.1.291481.3.579.2. 593 1995 Unknown [id number] 2.16.840.1.494175.3.579.2. 593 1995 Unknown [id number] 2.16.840.1.479619.3.579.2. 593 1995 Unknown [id number] 2.16.840.1.602335.3.579.2. 593 1995 Unknown [id number] 2.16.840.1.216566.3.579.2. 593 1995 Unknown [id number] 2.16.840.1.097701.3.579.2. 593 1995 Unknown [id number] 2.16.840.1.571199.3.579.2. 593 1995 Unknown [id number] 2.16.840.1.391004.3.579.2. 593 1995 Unknown [id number] 2.16.840.1.728070.3.579.2. 593 1995 Unknown [id number] 2.16.840.1.900115.3.579.2. 593 1995 Unknown [id number] 2.16.840.1.555290.3.579.2. 593 1995 Unknown [id number] 2.16.840.1.531674.3.579.2. 593 1995 Unknown [id number] 2.16.840.1.511265.3.579.2. 593 1995 Unknown [id number] 2.16.840.1.932798.3.579.2. 593 1995 Unknown [id number] 2.16.840.1.407560.3.579.2. 125 1995 Unknown [id number] 2.16.840.1.406379.3.579.2. 125 1995 Unknown [id number] 2.16.840.1.426322.3.579.2. 125 1995 Unknown [id number] 2.16.840.1.940400.3.579.2. 125 1995 Unknown [id number] 2.16.840.1.348315.3.579.2. 1258 1995 Unknown [id number] 2.16.840.1.949679.3.579.2. 1258 1995 Unknown [id number] 2.16.840.1.201570.3.579.2. 125 1995 Unknown [id number] 2.16.840.1.199290.3.579.2. 125 1995 Unknown [id number] 2.16.840.1.581222.3.579.2. 125 1995 Unknown [id number] 2.16.840.1.567566.3.579.2. 1258 1995 Unknown [id number] 2.16.840.1.277702.3.579.2. 125 1995 Unknown [id number] 2.16.840.1.989986.3.579.2. 125 1959 Unknown [id number] 1.2.840.124728.1.13.239.2. 7.3.914762.315 Unknown [id number] 2.16.840.1.407083.3.579.2. 531 Social History Date Type Detail Facility Tobacco smoking stat [facility] Unknown if ever smoked [facility] Start: 1995 Sex Assigned At Not on file C [facility] Start: 12-24-2020 End: 08-21-2023 Tobacco smoking status NHIS Never smoker [employer] Phone: Start: 12-24-2020 End: 08-21-2023 Tobacco use and exposure Never used [facility] Start: 12-24-2020 Alcohol intake Ex-drinker (finding) [employer] Phone: Start: 10-16-2021 End: 07-28-2022 Exposure to SARS-CoV-2 (event) Not sure [facility] Tobacco smoking stat [facility] Tobacco smoking consumption unknown [facility] Work Phone: Start: 08-08-2022 End: 01-23-2024 History of Social function [facility] Start: 08-08-2022 End: 01-23-2024 Patient Health Questionnaire 2 item (PHQ-2) [Reported] [facility] Adult Depression Screening Assessment 2 [facility] Start: 11-15-2023 End: 02-09-2024 Alcoholic beverage intake Lifetime non-drinker (finding) [facility] Start: 07-31-2022 Alcohol Comment Caffeine intak e: >4 cups per day [facility] Do you belong to any clubs or organizations such as muslim groups, unions, fraternal or athletic groups, or school groups? Yes [facility] Are you now , , , , never or living with a partner? Living with partner [facility] How often to you hav e a drink containing alcohol? Never [facility] How hard is it for y ou to pay for the very basics like food, housing, medical care, and heating Not very hard [facility] Do you feel stress - tense, restless, nervous, or anxious, or unable to sleep at night because your mind is troubled all the time - these days [OSQ] Rather much [facility] (I/We) worried wheth er (my/our) food would run out before (I/we) got money to buy more. Never true [facility] In the past 12 month s, was there a time when you were not able to pay the mortgage or rent on time? No [facility] NEGATED: Highlighted rowStart: HERIF History of tobacco use Passive smoker [facility] Clinical Notes 12-24-2020 to 02-09-2024 Lamont Shay MD - 02/09/2024 12:19 PM Lucila Shay MD - 02/09/2024 12:19 PM Lucila Shay MD - 02/09/2024 12:18 PM Lucila Shay MD - 02/09/2024 10:30 AM ESTPatient InstructionsAttachments Note Date & Type Note Facility 02-09-2024 History of Presen t illness Narrative Associated Problem(s): Mild persistent asthma with (acute) exacerbation (CMS/[facility]) Recent flare but not able to take oral medication. Shot of medrol in office. Use albuterol PRN. Associated Problem(s): Intractable nausea and vomiting Severe nausea and emesis, not able to drink or take medication. To ER several times and weight down 20 pounds in the past 2 1/2 weeks. Will attempt to get zofran pump from home health. Check CT abdomen. Follow with GI. Associated Problem(s): Generalized abdominal pain Unclear cause of pain and check CT. Referred to GI. Images from the original note were not included. Subjective Patient ID: Sandie Nicholson is a 28 y.o. female who presents for Follow-up, Vomiting (Ongoing for about 3 weeks), and Diarrhea. C/o abdominal pain, nausea, vomiting, and diarrhea for over 3 weeks. Severe nausea and frequent emesis. Not able to keep anything down. Frequent cramping in lower abdomen. Severe diarrhea and watery BM several times a day. No blood with BM. Not able to take any of her medication for the past several weeks and not on bipolar medication. To ER several times and gets IV medication and improved then sent home. No imaging and has not had CT. Given oral zofran and not help. Tried phenergan suppositories and not help. Weight down 20 pounds since last visit 01/22. Requests zofran pump and used during when had hyperemesis and helped. C/o worsening asthma over past few days. Increased SOB and chest tight. Feels heaviness in chest. Albuterol not providing much relief. Review of Systems Respiratory: Negative for cough, shortness of breath and wheezing. Cardiovascular: Negative for chest pain and palpitations. Gastrointestinal: Negative for abdominal pain, diarrhea, nausea and vomiting. Genitourinary: Negative for dysuria. Objective Physical Exam Constitutional: General: She is not in acute distress. Appearance: Normal appearance. HENT: Head: Normocephalic. Right Ear: Tympanic membrane normal. Left Ear: Tympanic membrane normal. Eyes: Extraocular Movements: Extraocular movements intact. Pupils: Pupils are equal, round, and reactive to light. Cardiovascular: Rate and Rhythm: Normal rate and regular rhythm. Heart sounds: No murmur heard. No friction rub. No gallop. Pulmonary: Effort: Pulmonary effort is normal. Breath sounds: Normal breath sounds. No wheezing, rhonchi or rales. Abdominal: General: Bowel sounds are normal. There is no distension. Palpations: Abdomen is soft. Tenderness: There is no guarding or rebound. Comments: Diffuse TTP across lower abdomen Musculoskeletal: Cervical back: Neck supple. Right lower leg: No edema. Left lower leg: No edema. Neurological: Mental Status: She is alert. Assessment/Plan Problem List Items Addressed This Visit Mild persistent asthma with (acute) exacerbation (CMS/HCC) Recent flare but not able to take oral medication. Shot of medrol in office. Use albuterol PRN. Relevant Medications methylPREDNISolone acetate (DEPO-Medrol) injection 80 mg (Completed) Intractable nausea and vomiting Severe nausea and emesis, not able to drink or take medication. To ER several times and weight down 20 pounds in the past 2 1/2 weeks. Will attempt to get zofran pump from home health. Check CT abdomen. Follow with GI. Relevant Orders CT abdomen pelvis w and wo IV contrast Generalized abdominal pain - Primary Unclear cause of pain and check CT. Referred to GI. Relevant Orders CT abdomen pelvis w and wo IV contrast documented in this encounter [facility] 01-30-2024 Note Addended by: LOGAN BARTH on: 01/30/2024 02:59 PM Modules accepted: Orders [facility] 01-30-2024 Telephone encounter Note The following approved medication requests have been transmitted electronically. Requested Prescriptions Signed Prescriptions Disp Refills ZOLMitriptan (ZOMIG) 5 mg nasal spray 12 Each 5 Sig: Use 1 [place] in the nose as needed at onset of migraine headache. If symptoms persist or return, may repeat dose in other nostril after 2 hours. Maximum of 2 sprays per 24 hours Authorizing Provider: LOGAN BARTH APRN.CNP [facility] 01-30-2024 Miscellaneous Notes Addended by: LOGAN BARTH on: 01/30/2024 02:59 PM Modules accepted: Orders The following approved medication requests have been transmitted electronically. Requested Prescriptions Signed Prescriptions Disp Refills ZOLMitriptan (ZOMIG) 5 mg nasal spray 12 Each 5 Sig: Use 1 [place] in the nose as needed at onset of migraine headache. If symptoms persist or return, may repeat dose in other nostril after 2 hours. Maximum of 2 sprays per 24 hours Authorizing Provider: LOAGN BARTH APRN.CNP Dispense 12 pls. I rewrote the rx. Logan Barth APRN.CNP Per last Rx on 11/10/2023: Disp Refills Start End ZOLMitriptan (ZOMIG) 5 mg nasal spray 10 Each 5 11/10/2023 -- Sig: Use 1 [place] in the nose as needed at onset of migraine headache. If symptoms persist or return, may repeat dose in other nostril after 2 hours. Maximum of 2 sprays per 24 hours I called the pharmacy and hey need to know if Provider would like to dispense #6 or #12 cartridges. They do not come in 10. Please advise. Thank you Name of Caller: nicky Relationship to patient: pharmacy Last visit in this department: 09/19/2023 Reason for Call: Other : need to verify quantity on zolmitriptan. Callback number: [phone] documented in this encounter [facility] 01-30-2024 Telephone encounter Note Dispense 12 pls. I rewrote the rx. Logan Barth APRN.CNP [facility] 01-29-2024 Telephone encounter Note Per last Rx on 11/10/2023: Disp Refills Start End ZOLMitriptan (ZOMIG) 5 mg nasal spray 10 Each 5 11/10/2023 -- Sig: Use 1 [place] in the nose as needed at onset of migraine headache. If symptoms persist or return, may repeat dose in other nostril after 2 hours. Maximum of 2 sprays per 24 hours I called the pharmacy and hey need to know if Provider would like to dispense #6 or #12 cartridges. They do not come in 10. Please advise. Thank you [facility] 01-29-2024 Telephone encounter Note Name of Caller: nicky Relationship to patient: pharmacy Last visit in this department: 09/19/2023 Reason for Call: Other : need to verify quantity on zolmitriptan. Callback number: [phone] [facility] 01-23-2024 History of Presen t illness Narrative Associated Problem(s): SOB (shortness of breath) on exertion Severe symptom and check CXR. Use albuterol PRN and start prednisone. Associated Problem(s): Mild persistent asthma with (acute) exacerbation ([facility]) Continued symptoms and treat with prednisone and doxy. Use albuterol every 4 hours x 48 hours then PRN. Use OTC PRN cough or congestion. Associated Problem(s): Generalized edema Unclear etiology and check labs and CXR. Start lasix PRN. Images from the original note were not included. Subjective Patient ID: Sandie Nicholson is a 28 y.o. female who presents for Shortness of Breath and Leg Swelling. C/o not feeling well for several weeks. Severe fatigue for over a month. Developed severe SOB. Continued cough and SOB with exertion. Severe fatigue and no energy. Fatigue and SOB with walking around house. Cough dry and nonproductive. Reports temp 103. Using albuterol and no change. Developed swelling in feet and hand. Skin feels tight and stretched. Not able to lay flat due to SOB. No history of edema in past. Review of Systems Respiratory: Negative for cough, shortness of breath and wheezing. Cardiovascular: Negative for chest pain and palpitations. Gastrointestinal: Negative for abdominal pain, diarrhea, nausea and vomiting. Genitourinary: Negative for dysuria. Objective Physical Exam Constitutional: General: She is not in acute distress. Appearance: Normal appearance. HENT: Head: Normocephalic. Right Ear: Tympanic membrane normal. Left Ear: Tympanic membrane normal. Eyes: Extraocular Movements: Extraocular movements intact. Pupils: Pupils are equal, round, and reactive to light. Cardiovascular: Rate and Rhythm: Normal rate and regular rhythm. Heart sounds: No murmur heard. No friction rub. No gallop. Pulmonary: Effort: Pulmonary effort is normal. Breath sounds: Normal breath sounds. No wheezing, rhonchi or rales. Abdominal: General: Bowel sounds are normal. There is no distension. Palpations: Abdomen is soft. Tenderness: There is no abdominal tenderness. There is no guarding or rebound. Musculoskeletal: Cervical back: Neck supple. Right lower leg: No edema. Left lower leg: No edema. Neurological: Mental Status: She is alert. Assessment/Plan Problem List Items Addressed This Visit Mild persistent asthma with (acute) exacerbation (CMS/[facility]) - Primary Continued symptoms and treat with prednisone and doxy. Use albuterol every 4 hours x 48 hours then PRN. Use OTC PRN cough or congestion. Relevant Medications doxycycline (Vibra-Tabs) 100 MG tablet predniSONE (Deltasone) 50 MG tablet Other Relevant Orders XR chest 2 views Generalized edema Unclear etiology and check labs and CXR. Start lasix PRN. Relevant Medications furosemide (Lasix) 40 MG tablet Other Relevant Orders XR chest 2 views Basic metabolic panel Hepatic function panel CBC and differential B-type natriuretic peptide SOB (shortness of breath) on exertion Severe symptom and check CXR. Use albuterol PRN and start prednisone. Relevant Orders XR chest 2 views Hepatic function panel CBC and differential documented in this encounter [facility] 01-22-2024 Note HNO ID: [id number] Author: JOHANA CANCINO RN Service: ? Author Type: Registered Nurse Type: Progress Notes Filed: 01/22/2024 15:58 Note Text: Pt in for third day of infusion. Pt rated headache 9/10. Pt has severe nausea and moderate dizziness. Educated pt on medications to be administered. Pt agreed to proceed as ordered. Insurance Inspector yes Patient reports she stopped vomiting but nausea is still pretty severe. She continues to retain fluids, hands and lower extremities appear puffy, non pitting edema. Jace Morales CNP aware, patient seen. Patient referred to pcp for s/s management. Patient called pcp's office and got an appointment for 01/22. Patient aware if s/s of shortness of breath she is to seek medical attention sooner. Fluids held per provider. Patient requested Compazine for nausea and 2 doses of Benadryl. Provider aware. 1429 Pt requested second dose of Benadryl 25 mg IVP, started getting anxious. 1515 Patient assisted to the restroom via wheelchair. Pt reports dizziness. 1544 Pt requested Zofran. Zofran 8 mg IVP given to patient for mild- moderate nausea. 1553 Pts infusion complete. Headache 6/10. Pt stated moderate nausea and moderate dizziness. Pt discharged from txt room via wheelchair to her in the lobby. [facility] 01-22-2024 History of Presen t illness Narrative Pt in for third day of infusion. Pt rated headache 9/10. Pt has severe nausea and moderate dizziness. Educated pt on medications to be administered. Pt agreed to proceed as ordered. Insurance Inspector yes Patient reports she stopped vomiting but nausea is still pretty severe. She continues to retain fluids, hands and lower extremities appear puffy, non pitting edema. Jace Morales CNP aware, patient seen. Patient referred to pcp for s/s management. Patient called pcp's office and got an appointment for 01/22. Patient aware if s/s of shortness of breath she is to seek medical attention sooner. Fluids held per provider. Patient requested Compazine for nausea and 2 doses of Benadryl. Provider aware. 1429 Pt requested second dose of Benadryl 25 mg IVP, started getting anxious. 1515 Patient assisted to the restroom via wheelchair. Pt reports dizziness. 1544 Pt requested Zofran. Zofran 8 mg IVP given to patient for mild- moderate nausea. 1553 Pts infusion complete. Headache 07/30. Pt stated moderate nausea and moderate dizziness. Pt discharged from txt room via wheelchair to her in the lobby. documented in this encounter [facility] 01-22-2024 Note HNO ID: [id number] Author: RAIZA MORALES APRN.INSPECTOR AIDE Service: ? Author Type: Nurse Practitioner Type: Progress Notes Filed: 01/22/2024 13:57 Note Text: [facility] Note Subjective: Coni Nicholson is a 28 year old year old female presenting for day 3 of infusions. Therapy Plan: zofran toradol magnesium robaxin New health conditions since orders were placed: No Cardiovascular risk factors: None Triptan dose in the last 24 hours: No Last muscle relaxer dose: No Last NSAID dose: No Response to infusions: Patient tolerating infusion without side effects. Current Preventative: Vyepti , Lamictal, magnesium , Botox Current Abortive: Toradol, phenergan, Parafon Forte, Zomig Labs: Latest Ref Rng AND Units 04/01/2022 CBC WBC 3.70 - 11.00 [...] Lymph 1.00 - 4.00 k/uL 0.84 Abs Dale <0.87 k/uL 0.06 Abs Eosin <0.46 k/uL <0.03 Abs Baso <0.11 k/uL <0.03 NRBC /100 WBC 0.0 Latest Ref Rng AND Units 04/01/2022 CMP Sodium 136 - 144 mmol/L 139 Potassium 3.7 - 5.1 mmol/L 4.5 Chloride 97 - 105 mmol/L 105 CO2 22 - 30 mmol/L 20 Glucose 74 - 99 mg/dL 120 BUN 7 - 21 mg/dL 11 Creatinine 0.58 - 0.96 mg/dL 0.64 EGFR >=60 mL/min/1.73m? 125 Protein, Total 6.3 - 8.0 g/dL 6.9 Albumin 3.9 - 4.9 g/dL 4.2 Calcium 8.5 - 10.2 mg/dL 8.9 Bilirubin, Total 0.2 - 1.3 mg/dL 0.3 AST 13 - 35 U/L 14 ALT 7 - 38 U/L 12 Alkaline Phosphatase 34 - 123 U/L 84 ALLERGIES Allergen Reactions Dihydroergotamine Intolerance Chest tightness, numbness and tingling in bilateral extremities, increased anxiety Adhesive Tape-Silic* Rash Azithromycin Other: See Comments Keflex [Cephalexin] Rash Keppra [Levetiracet* Itching Propranolol Hives, Other: See Comments Migrianes Pyrilamine-Dextrome* Hives Reglan [Metoclopram* Intolerance Vortioxetine Hives Prochlorperazine Intolerance Current Medications: albuterol sulfate 90 mcg/actuation breath activated powder inhalerInhale 2 Puffs as instructed every 6 hours as needed for wheezing/shortness of breath.Disp: Rfl: promethazine (PHENERGAN) 25 mg tabletTake 1 tablet by mouth every 4 hours as needed. FOR NAUSEADisp: 90 tabletRfl: 5 ZOLMitriptan (ZOMIG) 5 mg nasal sprayUse 1 [place] in the nose as needed at onset of migraine headache. If symptoms persist or return, may repeat dose in other nostril after 2 hours. Maximum of 2 sprays per 24 hoursDisp: 10 EachRfl: 5 keTORolac (TORADOL) 10 mg tabletTake 1 tablet by mouth every 6 hours as needed (severe migraine).Disp: 20 tabletRfl: 5 chlorzoxazone (PARAFON FORTE DSC) 500 mg tabletTake 1 tablet by mouth two times a day as needed for muscle spasm (migraine).Disp: 20 tabletRfl: 5 magnesium oxide 400 mg magnesium capTake 1 capsule by mouth daily at bedtime.Disp: 90 capsuleRfl: 3 lumateperone (CAPLYTA) 10.5 mg capsuleTake 10.5 mg by mouth once daily.Disp: Rfl: (Patient not taking: Reported on 01/17/2024) lithium carbonate 300 mg tabletDisp: Rfl: traZODone (DESYREL) 100 mg tabletDisp: Rfl: lamoTRIgine (LAMICTAL) 150 mg tabletDisp: Rfl: diazePAM (VALIUM) 10 mg tabletDisp: Rfl: Review of Systems: Review of system: Patient reports no change from the prior visit. Objective: VS: see infusion note for vital signs General: well appearing, in no acute distress, alert, overweight Neurological: Pain Behaviors: no pain behaviors observed Mental Status: Alert and oriented to person, place and time. Affect is normal and appropriate. Speech is spontaneous and fluent without dysarthria, normal in rate, volume and articulation, and clear, coherent, and relevant. Short and longitudinal float operator memory, cognition and general fund of knowledge are good. Attention span and concentration are good. Cranial Nerves: VII-face is symmetric without evidence of weakness. VIII-hearing intact. Assessment: (G43.711) Chronic migraine without aura, with intractable migraine, so stated, with status migrainosus (primary encounter diagnosis) Plan: Coni Nicholson is a 28 year old year old female, with a history of asthma, anxiety, depression, PCOS, occipital neuralgia, psychogenic nonepileptic seizures, and chronic migraine following up today for day 3 of infusions. Patient reports 30 pound weight gain over last few months, scheduled to see PCP tomorrow to discuss this (was previously prescribed weight loss medication but did not start this yet). Denies any chest pain, VSS. Will hold extra IV fluids during today's infusions. Follow up plan: Resume previous at home medications. Level of service: Est level 2 (10-19 min). Time spent 10 min on the day of service, which included p (more content not included)... [facility] 01-22-2024 History of Presen t illness Narrative Images from the original note were not included. [facility] Note Subjective: Coni Nicholson is a 28 year old year old female presenting for day 3 of infusions. Therapy Plan: zofran toradol magnesium robaxin New health conditions since orders were placed: No Cardiovascular risk factors: None Triptan dose in the last 24 hours: No Last muscle relaxer dose: No Last NSAID dose: No Response to infusions: Patient tolerating infusion without side effects. Current Preventative: Vyepti , Lamictal, magnesium , Botox Current Abortive: Toradol, phenergan, Parafon Forte, Zomig Labs: Latest Ref Rng & Units 04/01/2022 CBC [...] Lymph 1.00 - 4.00 k/uL 0.84 Abs Dale <0.87 k/uL 0.06 Abs Eosin <0.46 k/uL <0.03 Abs Baso <0.11 k/uL <0.03 NRBC /100 WBC 0.0 Latest Ref Rng & Units 04/01/2022 CMP [...] Alkaline Phosphatase 34 - 123 U/L 84 ALLERGIES Allergen Reactions Dihydroergotamine Intolerance Chest tightness, numbness and tingling in bilateral extremities, increased anxiety Adhesive Tape-Silic* Rash Azithromycin Other: See Comments Keflex [Cephalexin] Rash Keppra [Levetiracet* Itching Propranolol Hives, Other: See Comments Migrianes Pyrilamine-Dextrome* Hives Reglan [Metoclopram* Intolerance Vortioxetine Hives Prochlorperazine Intolerance Current Medications: albuterol sulfate 90 mcg/actuation breath activated powder inhaler^Inhale 2 Puffs as instructed every 6 hours as needed for wheezing/shortness of breath.^Disp: ^Rfl: promethazine (PHENERGAN) 25 mg tablet^Take 1 tablet by mouth every 4 hours as needed. FOR NAUSEA^Disp: 90 tablet^Rfl: 5 ZOLMitriptan (ZOMIG) 5 mg nasal spray^Use 1 [place] in the nose as needed at onset of migraine headache. If symptoms persist or return, may repeat dose in other nostril after 2 hours. Maximum of 2 sprays per 24 hours^Disp: 10 Each^Rfl: 5 keTORolac (TORADOL) 10 mg tablet^Take 1 tablet by mouth every 6 hours as needed (severe migraine).^Disp: 20 tablet^Rfl: 5 chlorzoxazone (PARAFON FORTE DSC) 500 mg tablet^Take 1 tablet by mouth two times a day as needed for muscle spasm (migraine).^Disp: 20 tablet^Rfl: 5 magnesium oxide 400 mg magnesium cap^Take 1 capsule by mouth daily at bedtime.^Disp: 90 capsule^Rfl: 3 lumateperone (CAPLYTA) 10.5 mg capsule^Take 10.5 mg by mouth once daily.^Disp: ^Rfl: (Patient not taking: Reported on 01/17/2024) lithium carbonate 300 mg tablet^^Disp: ^Rfl: traZODone (DESYREL) 100 mg tablet^^Disp: ^Rfl: lamoTRIgine (LAMICTAL) 150 mg tablet^^Disp: ^Rfl: diazePAM (VALIUM) 10 mg tablet^^Disp: ^Rfl: Review of Systems: Review of system: Patient reports no change from the prior visit. Objective: VS: see infusion note for vital signs General: well appearing, in no acute distress, alert, overweight Neurological: Pain Behaviors: no pain behaviors observed Mental Status: Alert and oriented to person, place and time. Affect is normal and appropriate. Speech is spontaneous and fluent without dysarthria, normal in rate, volume and articulation, and clear, coherent, and relevant. Short and shelter memory, cognition and general fund of knowledge are good. Attention span and concentration are good. Cranial Nerves: VII-face is symmetric without evidence of weakness. VIII-hearing intact. Assessment: (G43.711) Chronic migraine without aura, with intractable migraine, so stated, with status migrainosus (primary encounter diagnosis) Plan: Coni Nicholson is a 28 year old year old female, with a history of asthma, anxiety, depression, PCOS, occipital neuralgia, psychogenic nonepileptic seizures, and chronic migraine following up today for day 3 of infusions. Patient reports 30 pound weight gain over last few months, scheduled to see PCP tomorrow to discuss this (was previously prescribed weight loss medication but did not start this yet). Denies any chest pain, VSS. Will hold extra IV fluids during today's infusions. Follow up plan: Resume previous at home medications. Level of service: Est level 2 (10-19 min). Time spent 10 min on the day of service, which included preparing to see the patient, [id number] patient care, completing clinical documentation, and obtaining and/or reviewing separately obtained history. Raiza Morales APRN.FADY Headache [facility] January 22, 2024 documented in this encounter [facility] 01-19-2024 Note HNO ID: [id number] Author: JOHANA CANCINO RN Service: ? Author Type: Registered Nurse Type: Progress Notes Filed: 01/19/2024 11:55 Note Text: Pt in for second day of infusion. Pt rated headache 10/10. Pt has severe nausea and severe dizziness. Educated pt on medications to be administered. Pt agreed to proceed as ordered. Insurance Inspector: yes Patient took Valium 10 mg tabl last night. Requested Compazine with Benadryl for headache. Has intolerance to Compazine but stated she takes it with Benadryl and it helps headache and nausea. Compazine 10 mg IVP given with Benadryl 25 mg IVP for headache. 1007 Patient requested second dose of Benadryl 25 mg IV, stated she is feeling anxious. 1012 Medicated with Benadryl 25 mg IVP Patient reported she has gained about 40 lbs over the last 2 months, saw pcp, Adipex prescribed. Labs ordered and done. Patient didn't start Adipex yet. Patient reports severe nausea and vomiting, yesterday she vomited 3 times. This morning she vomited once when she smelled food. Some ankle edema note, hands slightly puffy. Discussed with Demond Aguilar CNP. Ольга to see patient. 1102 Anxiety resolved. Headache 5/10, mild nausea. Patient sleeping on and off. Seen by Demond Aguilar CNP, per Demond Aguilar CNP continue with infusion as ordered. Pt told Ольга she has been on oral steroids for quite some time, had pneumonia post covid.. Per Leeanna, is nausea/vomiting persist pt to see pcp/GI. Pt verbalized understanding. 1130 Pt assisted to the restroom via wheelchair, pt is feeling dizzy and sleepy. 1134 Pt requested Zofran for nausea, medicated as ordered. 1143 Tx complete. Headache 5/10, nausea improving, mild-moderate dizziness. Pt d/c via wheelchair to her in [facility]. Instructed patient and to take caution with ambulating. Patient is feeling sedated. [facility] 01-19-2024 History of Presen t illness Narrative Pt in for second day of infusion. Pt rated headache 10/10. Pt has severe nausea and severe dizziness. Educated pt on medications to be administered. Pt agreed to proceed as ordered. Insurance Inspector: yes Patient took Valium 10 mg tabl last night. Requested Compazine with Benadryl for headache. Has intolerance to Compazine but stated she takes it with Benadryl and it helps headache and nausea. Compazine 10 mg IVP given with Benadryl 25 mg IVP for headache. 1007 Patient requested second dose of Benadryl 25 mg IV, stated she is feeling anxious. 1012 Medicated with Benadryl 25 mg IVP Patient reported she has gained about 40 lbs over the last 2 months, saw pcp, Adipex prescribed. Labs ordered and done. Patient didn't start Adipex yet. Patient reports severe nausea and vomiting, yesterday she vomited 3 times. This morning she vomited once when she smelled food. Some ankle edema note, hands slightly puffy. Discussed with Demond Aguilar CNP. Ольга to see patient. 1102 Anxiety resolved. Headache 5/10, mild nausea. Patient sleeping on and off. Seen by Demond Aguilar CNP, per Demond Aguilar CNP continue with infusion as ordered. Pt told Ольга she has been on oral steroids for quite some time, had pneumonia post covid.. Per Leeanna, is nausea/vomiting persist pt to see pcp/GI. Pt verbalized understanding. 1130 Pt assisted to the restroom via wheelchair, pt is feeling dizzy and sleepy. 1134 Pt requested Zofran for nausea, medicated as ordered. 1143 Tx complete. Headache 5/10, nausea improving, mild-moderate dizziness. Pt d/c via wheelchair to her in [facility]. Instructed patient and to take caution with ambulating. Patient is feeling sedated. documented in this encounter [facility] 01-17-2024 Note HNO ID: [id number] Author: CARLINE MAYNARD RN Service: ? Author Type: Registered Nurse Type: Progress Notes Filed: 01/17/2024 11:29 Note Text: Patient arrived to infusion suite rating pain 10/10 with severe nausea and severe dizziness. Educated on medications to be administered per therapy plan and verbally agreed to proceed. PRN Compazine given for headache. PRN Benadryl given for sedation (pateint requested one benadryl dose with compazine and one 10-15 min following compazine to help with side effects.) At end of infusion, patient rated pain 6/10 with moderate nausea and mild dizziness. PRN Zofran given for nausea. Discharged to school bus driver/custodian via wheelchair. [facility] 01-17-2024 History of Presen t illness Narrative Patient arrived to infusion suite rating pain 10/10 with severe nausea and severe dizziness. Educated on medications to be administered per therapy plan and verbally agreed to proceed. PRN Compazine given for headache. PRN Benadryl given for sedation (pateint requested one benadryl dose with compazine and one 10-15 min following compazine to help with side effects.) At end of infusion, patient rated pain 6/10 with moderate nausea and mild dizziness. PRN Zofran given for nausea. Discharged to school bus driver/custodian via wheelchair. documented in this encounter [facility] 01-17-2024 Note HNO ID: [id number] Author: ОЛЬГА AGUILAR APRN.INSPECTOR AIDE Service: ? Author Type: Nurse Practitioner Type: Progress Notes Filed: 01/17/2024 07:59 Note Text: [facility] - Virtual Visit Infusion Triage This visit was conducted as a virtual visit, with patient's permission, via ZOOM. It required patient-provider interaction for the medical decision making as documented below. Patient stated name and Patient location [place], [place] I have communicated my name and active licensure. The patient's identity and physical location were verified at the time of this visit. Either the patient or their legal marketing sales representative has been informed of the risks and benefits of -- and alternatives to -- treatment through a remote evaluation and consents to proceed with the evaluation remotely. HPI: Coni Nicholson is a 28 year old year old female, with a history of asthma, anxiety, depression, PCOS, occipital neuralgia, psychogenic nonepileptic seizures, and chronic migraine. following up today virtually to discuss infusion therapy. Date of last visit: 12/05/23 Onset of current headache: 12/06/23 What medications have you tried for this headache cycle: Paraabdias Cobb, New health events/diagnosis since last visit (SD/stroke/DM/HTN/etc): denies Cardiovascular risk factors: obesity Past infusion intolerances: 03/2023; Phenergan,Benadryl,Toradol,NS,R obaxin,compazine(listed intolerance) Headache 1 Location: holcephalic Quality/Description: throbbing and pressure Associated Symptoms: Photophobia: yes Phonophobia: yes Nausea: yes Vomiting: yes Other symptoms: osmophobia Worse with activity: yes Number of migraine headache days/month: 20 Migraine headache severity: 10/10 Number of headache free days/month: 7 Duration of headaches with treatment: 13 days (312 hours) Triggers: stress, weather changes, fasting/hunger and dehydration Onset of headache to peak: varies Positional changes: no Most common time of day for headache to begin: evening Aura: blurred vision Allodynia: yes Days missed from work or school in the last month: 15 days Headache status since the last visit: worse Current Preventative: Vyepti , Lamictal, magnesium , Botox Current Abortive: Toradol, phenergan, Parafon Forte, Zomig Labs to Review: Latest Ref Rng AND Units 04/01/2022 CMP Sodium 136 - 144 mmol/L 139 Potassium 3.7 - 5.1 mmol/L 4.5 Chloride 97 - 105 mmol/L 105 CO2 22 - 30 mmol/L 20 Glucose 74 - 99 mg/dL 120 BUN 7 - 21 mg/dL 11 Creatinine 0.58 - 0.96 mg/dL 0.64 EGFR >=60 mL/min/1.73m? 125 Protein, Total 6.3 - 8.0 g/dL 6.9 Albumin 3.9 - 4.9 g/dL 4.2 Calcium 8.5 - 10.2 mg/dL 8.9 Bilirubin, Total 0.2 - 1.3 mg/dL 0.3 AST 13 - 35 U/L 14 ALT 7 - 38 U/L 12 Alkaline Phosphatase 34 - 123 U/L 84 Latest Ref Rng AND Units 04/01/2022 CBC WBC 3.70 - 11.00 [...] Lymph 1.00 - 4.00 k/uL 0.84 Abs Dale <0.87 k/uL 0.06 Abs Eosin <0.46 k/uL <0.03 Abs Baso <0.11 k/uL <0.03 NRBC /100 WBC 0.0 Analgesic Ketorolac (Toradol) Anti-Convulsant Lamotrigine (Lamictal) Topiramate (Topamax, Trokendi XL, Qudexy) Anti-Depressant and Antipsychotic Amitriptyline (Elavil) [place] (Eskalith, Lithobid) Nortriptyline (Pamelor, Aventyl) Anti-Migraine Dihydroergotamine [...] Comments Keflex [Cephalexin] Rash Keppra [Levetiracet* Itching Propranolol Hives, Other: See Comments Migrianes Pyrilamine-Dextrome* Hives Reglan [Metoclopram* Intolerance Vortioxetine Hives Prochlorperazine Intolerance Current Medications: albuterol sulfate 90 mcg/actuation breath activated powder inhalerInhale 2 Puffs as instructed every 6 hours as needed for wheezing/shortness of breath.Disp: Rfl: promethazine (PHENERGAN) 25 mg tabletTake 1 tablet by mouth every 4 hours as needed. FOR NAUSEADisp: 90 tabletRfl: 5 ZOLMitriptan (ZOMIG) 5 mg nasal sprayUse 1 Sp (more content not included)... [facility] 01-16-2024 Telephone encounter Note PAPO: 12/05/2023 with Ольга Aguilar APRN.INSPECTOR AIDE [facility] 01-16-2024 Miscellaneous Notes PAPO: 12/05/2023 with Ольга Aguilar APRN.INSPECTOR AIDE documented in this encounter [facility] 01-09-2024 History of Presen t illness Narrative Associated Problem(s): Chronic migraine without aura without status migrainosus, not intractable ([facility]) PINEDA worse and follow with specialists. Associated Problem(s): Class 3 severe obesity due to excess calories without serious comorbidity with body mass index (BMI) of 50.0 to 59.9 in adult ([facility]) Patient overweight and difficult time losing weight. Discussed proper diet and regular aerobic exercise. Recommend Weight Watchers and need to limit calories and smaller portions. Need to increase activity and regular aerobic exercise several days a week for 30 minutes at a time. Interested in adipex and warned of potential cardiac side effects. Script written for first month and will need to recheck weight in 1 month. OARRS reviewed. Continue medications as prescribed. Associated Problem(s): Fatigue Possibly related to bipolar. Check labs. Associated Problem(s): Mixed bipolar I disorder ([facility]) Denies worsening symptoms and follow with specialists Associated Problem(s): Pain, dental Broken tooth and follow with dentist. Gargle with warm salt water. Start ultram PRN. Images from the original note were not included. Subjective Patient ID: Sandie Nicholson is a 28 y.o. female who presents for Fatigue (Dizzy, shaky, very tired, can't stay awake. clm). Follow up asthma and weight. C/o not feeling well. Severe fatigue and no energy. Feels off balance like will pass out. Migraines much worse and daily. Following with neurology and getting infusions but not much relief. Following with psychiatry for bipolar and doesn't feel like having worsening symptoms. C/o broken tooth causing pain and migraines. Chipped top back molar and can't get into dentist until 02/07. Increased pain and using OTC but not helping. No drainage. Asthma stable with inhalers and no SOB or cough with exertion. Weight up 34 pounds in past several months. Tries to watch diet and eat healthy. Increased fruits and vegetables. Smaller portions and limits snacking. Tries to limit total daily calories. Requests adipex and tolerated well in the past. Review of Systems Respiratory: Negative for cough, shortness of breath and wheezing. Cardiovascular: Negative for chest pain and palpitations. Gastrointestinal: Negative for abdominal pain, diarrhea, nausea and vomiting. Genitourinary: Negative for dysuria. Objective Physical Exam Constitutional: General: She is not in acute distress. Appearance: Normal appearance. HENT: Head: Normocephalic. Right Ear: Tympanic membrane normal. Left Ear: Tympanic membrane normal. Eyes: Extraocular Movements: Extraocular movements intact. Pupils: Pupils are equal, round, and reactive to light. Cardiovascular: Rate and Rhythm: Normal rate and regular rhythm. Heart sounds: No murmur heard. No friction rub. No gallop. Pulmonary: Effort: Pulmonary effort is normal. Breath sounds: Normal breath sounds. No wheezing, rhonchi or rales. Abdominal: General: Bowel sounds are normal. There is no distension. Palpations: Abdomen is soft. Tenderness: There is no abdominal tenderness. There is no guarding or rebound. Musculoskeletal: Cervical back: Neck supple. Right lower leg: No edema. Left lower leg: No edema. Neurological: Mental Status: She is alert. Assessment/Plan Problem List Items Addressed This Visit Mixed bipolar I disorder (CMS/HCC) Denies worsening symptoms and follow with specialists Chronic migraine without aura without status migrainosus, not intractable (CMS/HCC) PINEDA worse and follow with specialists. Mild persistent asthma (CMS/HCC) - Primary Class 3 severe obesity due to excess calories without serious comorbidity with body mass index (BMI) of 50.0 to 59.9 in adult (CMS/HCC) Patient overweight and difficult time losing weight. Discussed proper diet and regular aerobic exercise. Recommend Weight Watchers and need to limit calories and smaller portions. Need to increase activity and regular aerobic exercise several days a week for 30 minutes at a time. Interested in adipex and warned of potential cardiac side effects. Script written for first month and will need to recheck weight in 1 month. OARRS reviewed. Continue medications as prescribed. Relevant Medications phentermine (Adipex-P) 37.5 MG tablet Fatigue Possibly related to bipolar. Check labs. Pain, dental Broken tooth and follow with dentist. Gargle with warm salt water. Start ultram PRN. Relevant Medications traMADol (Ultram) 50 MG tablet documented in this encounter [facility] 01-05-2024 Note HNO ID: [id number] Author: LENNIE PALACIOS RN Service: ? Author Type: Registered Nurse Type: Progress Notes Filed: 01/05/2024 13:59 Note Text: 1230 Patient admitted for Vyepti 100 mg second dose. Migraine cycle for 9 days pain 8/10 severs nausea and moderate dizziness. Patient given 30 mg Toradol, 25 mg Bendryl and 8 MG Zofran IV. Patient denies any NSAIDS today including toradol po. Patient tolerated Vyepti without an incident. 1327 Patient as itching on front of chest and neck, area red. Similar reaction with previous infusion, resolved after Benadryl given. 1345 Patient discharged to school bus driver/custodian in wheelchair , patient sleepy but verbalizing and ambulating wheelchair used as a precaution Patient able to walk to wheelchair without difficulty. [facility] 01-05-2024 History of Presen t illness Narrative 1230 Patient admitted for Vyepti 100 mg second dose. Migraine cycle for 9 days pain 8/10 severs nausea and moderate dizziness. Patient given 30 mg Toradol, 25 mg Bendryl and 8 MG Zofran IV. Patient denies any NSAIDS today including toradol po. Patient tolerated Vyepti without an incident. 1327 Patient as itching on front of chest and neck, area red. Similar reaction with previous infusion, resolved after Benadryl given. 1345 Patient discharged to school bus driver/custodian in wheelchair , patient sleepy but verbalizing and ambulating wheelchair used as a precaution Patient able to walk to wheelchair without difficulty. documented in this encounter [facility] 12-05-2023 History of Presen t illness Narrative Images from the original note were not included. [facility] - Follow up Virtual Visit Last OV: 08/23/23 Sona Barth APRN Accompanied by: Self This visit was conducted as a virtual visit, with patient's permission, via ZOOM. It required patient-provider interaction for the medical decision making as documented below. Patient stated name and Patient location [place], [place] I have communicated my name and active licensure. The patient's identity and physical location were verified at the time of this visit. Either the patient or their legal marketing sales representative has been informed of the [...] (ZOMIG) 5 mg nasal spray Use 1 Tipton in the nose as needed at onset [...] these with the patient: yes Ольга Aguilar APRN.INSPECTOR AIDE Studies to Review: No New Health Issues: [...] XL, Qudexy) Anti-Depressant and Antipsychotic Amitriptyline (Elavil) [place] (Eskalith, Lithobid) Nortriptyline (Pamelor, Aventyl) Blood Pressure [...] which included preparing to see the patient, [id number] patient care, completing clinical documentation, and counseling and educating the patient/family/caregiver. Ольга Aguilar APRN.INSPECTOR AIDE documented in this encounter [facility] 12-05-2023 Note HNO ID: [id number] Author: ОЛЬГА AGUILAR APRN.INSPECTOR AIDE Service: ? Author Type: Nurse Practitioner Type: Progress Notes Filed: 12/05/2023 07:28 Note Text: Headache Center - Follow up Virtual Visit Last OV: 08/23/23 Sona Barth APRN Accompanied by: Self This visit was conducted as a virtual visit, with patient's permission, via ZOOM. It required patient-provider interaction for the medical decision making as documented below. Patient stated name and Patient location [place], [place] I have communicated my name and active licensure. The patient's identity and physical location were verified at the time of this visit. Either the patient or their legal marketing sales representative has been informed of the [...] Hx: Had 1 treatment Vyepti, next dose 11/15/24 Decreased Plan from last visit: IMPRESSION: Coni [...] (ZOMIG) 5 mg nasal spray Use 1 Tipton in the nose as needed at onset [...] 03/22/2023 07/10/2023 1 (more content not included)... [facility] 11-15-2023 History of Presen t illness Narrative Associated Problem(s): Mixed bipolar I disorder (CMS/HCC) Follow with specialists Associated Problem(s): Acute bronchitis due to other specified organisms Continued symptoms and treat with prednisone and bactrim. Use albuterol every 4 hours x 48 hours then PRN. Use OTC PRN cough or congestion. Images from the original note were not included. Subjective Patient ID: Sandie Nicholson is a 28 y.o. female who presents for Follow-up (Fever runny nose, vomiting, ). HPI Review of Systems Objective Physical Exam Assessment/Plan Images from the original note were not included. Subjective Patient ID: Sandie Nicholson is a 28 y.o. female who presents for Follow-up (Fever runny nose, vomiting, ). C/o cough, congestion, and rhinorrhea x several weeks. Temp 102. Severe fatigue and no energy. Frequent cough dry and nonproductive. Chest tight and SOB. PINEDA and sinus pressure in forehead and cheeks along with postnasal drip. Ears plugged and popping. Sore throat and pain to swallow. Mild nausea. Daughter recently sick. Using OTC medication and mild relief. No improvement in symptoms since onset. Review of Systems Respiratory: Negative for cough, shortness of breath and wheezing. Cardiovascular: Negative for chest pain and palpitations. Gastrointestinal: Negative for abdominal pain, diarrhea, nausea and vomiting. Genitourinary: Negative for dysuria. Objective Physical Exam Constitutional: General: She is not in acute distress. Appearance: Normal appearance. HENT: Head: Normocephalic. Right Ear: Tympanic membrane normal. Left Ear: Tympanic membrane normal. Eyes: Extraocular Movements: Extraocular movements intact. Pupils: Pupils are equal, round, and reactive to light. Cardiovascular: Rate and Rhythm: Normal rate and regular rhythm. Heart sounds: No murmur heard. No friction rub. No gallop. Pulmonary: Effort: Pulmonary effort is normal. Breath sounds: Normal breath sounds. No wheezing, rhonchi or rales. Abdominal: General: Bowel sounds are normal. There is no distension. Palpations: Abdomen is soft. Tenderness: There is no abdominal tenderness. There is no guarding or rebound. Musculoskeletal: Cervical back: Neck supple. Right lower leg: No edema. Left lower leg: No edema. Neurological: Mental Status: She is alert. Assessment/Plan Problem List Items Addressed This Visit Acute bronchitis due to other specified organisms - Primary Continued symptoms and treat with prednisone and bactrim. Use albuterol every 4 hours x 48 hours then PRN. Use OTC PRN cough or congestion. Relevant Medications predniSONE (Deltasone) 10 MG tablet sulfamethoxazole-trimethoprim (Bactrim DS) 800-160 MG per tablet documented in this encounter [facility] 11-10-2023 Telephone encounter Note The following approved medication requests have been transmitted electronically. Requested Prescriptions Signed Prescriptions Disp Refills ZOLMitriptan (ZOMIG) 5 mg nasal spray 10 Each 5 Sig: Use 1 Tipton in the nose as needed at onset [...] muscle spasm (migraine). Authorizing Provider: LOGAN BARTH APRN.FADY [facility] 11-10-2023 Miscellaneous Notes The following approved medication requests have been transmitted electronically. Requested Prescriptions Signed Prescriptions Disp Refills ZOLMitriptan (ZOMIG) 5 mg nasal spray 10 Each 5 Sig: Use 1 T[place]on in the nose as needed at onset [...] spray 10 Each 5 Sig: Use 1 Tipton in the nose as needed at onset [...] muscle spasm (migraine). documented in this encounter [facility] 11-10-2023 Telephone encounter Note The following approved medication requests have been transmitted electronically. Requested Prescriptions Signed Prescriptions Disp Refills promethazine (PHENERGAN) 25 mg tablet 90 tablet 5 Sig: Take 1 tablet by mouth every 4 hours as needed. FOR NAUSEA Authorizing Provider: LOGAN BARTH APRN.CNP [facility] 11-10-2023 Miscellaneous Notes The following approved medication requests have been transmitted electronically. Requested Prescriptions Signed Prescriptions Disp Refills promethazine (PHENERGAN) 25 mg tablet 90 tablet 5 Sig: Take 1 tablet by mouth every 4 hours as needed. FOR NAUSEA Authorizing Provider: LOGAN BARTH APRN.CNP Physician: Green Call from patient requesting refill. Please E-Scribe Last office visit 09/19/23 with Green in person Next office visit N/A Requested Prescriptions Pending Prescriptions Disp Refills promethazine (PHENERGAN) 25 mg tablet 90 tablet 1 Sig: Take 1 tablet by mouth every 4 hours as needed. FOR NAUSEA Pharmacy Name: [facility] documented in this encounter [facility] 11-10-2023 Telephone encounter Note Physician: Green Call from patient requesting refill. Please E-Scribe Last office visit 09/19/23 with Green in person Next office visit N/A Requested Prescriptions Pending Prescriptions Disp Refills promethazine (PHENERGAN) 25 mg tablet 90 tablet 1 Sig: Take 1 tablet by mouth every 4 hours as needed. FOR NAUSEA Pharmacy Name: [facility] 11-10-2023 Telephone encounter Note patient requesting refill via Mychart. Last OV: 09/19/2023 Future OV: None scheduled Last prescribed: 4 months ago (07/10/2023) by Logan Barth APRN.INSPECTOR AIDE Requested Prescriptions Pending Prescriptions Disp Refills ZOLMitriptan (ZOMIG) 5 mg nasal spray 10 Each 5 Sig: Use 1 [place]ipton in the nose as needed at onset [...] day as needed for muscle spasm (migraine). [facility] 10-13-2023 Note HNO ID: [id number] Author: GAJDA, JOHANA, RN Service: ? Author Type: Registered Nurse Type: Progress Notes Filed: 10/13/2023 14:00 Note Text: Pt in for Vyepti infusion. Pt rated headache 8 /10. Pt has severe nausea and mild dizziness. Educated pt on medications to be administered. Pt agreed to proceed as ordered. Insurance Inspector: yes Zofran 8 mg IVP given for severe nausea. 1310 Patient started sneezing, stated she has light congestion. Shane Lepe in to see patient. Benadryl 50 mg IVP given. Per MARY Summers ok to finish Vyepti. Toradol ordered forheadache 810. 1312 Toradol 30 mg IVP given, Patient [...] drive patient home. Patient d/c via wheelchair.. [facility] 10-13-2023 History of Presen t illness Narrative Pt in for Vyepti infusion. Pt rated headache 8 /10. Pt has severe nausea and mild dizziness. Educated pt on medications to be administered. Pt agreed to proceed as ordered. Insurance Inspector: yes Zofran 8 mg IVP given for [...] d/c via wheelchair.. documented in this encounter [facility] 10-10-2023 History of Presen t illness Narrative Associated Problem(s): Mild persistent asthma with (acute) exacerbation ([facility]) Continued symptoms and treat with prednisone and bactrim. Use albuterol every 4 hours x 48 hours then PRN. Use OTC PRN cough or congestion. Associated Problem(s): Acute bronchitis due to other specified organisms Continued symptoms and treat with prednisone and bactrim. Use albuterol every 4 hours x 48 hours then PRN. Use OTC PRN cough or congestion. Images from the original note were not included. Subjective Patient ID: Sandie Nicholson is a 27 y.o. female who presents for Follow-up (Clogged ears, hard to breathe). C/o cough, congestion, and rhinorrhea x several weeks. Temp 102 initially but not for over a week. Severe fatigue and no energy. Frequent cough dry and nonproductive of sputum. Chest tight and SOB. PINEDA and sinus pressure in forehead and cheeks along with postnasal drip. Ears plugged and popping. Sore throat and pain to swallow. Mild nausea. Denies recent sick contacts. Using OTC medication and mild relief. To urgent care 10/01 and given prednisone and augmentin. To urgent care 10/07 and given doxy and prednisone. Covid negative. Using albuterol PRN with mild relief. No improvement in symptoms since onset. Review of Systems Respiratory: Positive for cough and shortness of breath. Negative for wheezing. Cardiovascular: Negative for chest pain and palpitations. Gastrointestinal: Negative for abdominal pain, diarrhea, nausea and vomiting. Genitourinary: Negative for dysuria. Objective Physical Exam Constitutional: General: She is not in acute distress. Appearance: Normal appearance. HENT: Head: Normocephalic. Right Ear: Tympanic membrane normal. Left Ear: Tympanic membrane normal. Eyes: Extraocular Movements: Extraocular movements intact. Pupils: Pupils are equal, round, and reactive to light. Cardiovascular: Rate and Rhythm: Normal rate and regular rhythm. Heart sounds: No murmur heard. No friction rub. No gallop. Pulmonary: Effort: Pulmonary effort is normal. Breath sounds: Normal breath sounds. No wheezing, rhonchi or rales. Abdominal: General: Bowel sounds are normal. There is no distension. Palpations: Abdomen is soft. Tenderness: There is no abdominal tenderness. There is no guarding or rebound. Musculoskeletal: Cervical back: Neck supple. Right lower leg: No edema. Left lower leg: No edema. Neurological: Mental Status: She is alert. Assessment/Plan Problem List Items Addressed This Visit Mild persistent asthma with (acute) exacerbation (CMS/HCC) Continued symptoms and treat with prednisone and bactrim. Use albuterol every 4 hours x 48 hours then PRN. Use OTC PRN cough or congestion. Relevant Medications predniSONE (Deltasone) 10 MG tablet Acute bronchitis due to other specified organisms - Primary Continued symptoms and treat with prednisone and bactrim. Use albuterol every 4 hours x 48 hours then PRN. Use OTC PRN cough or congestion. Relevant Medications sulfamethoxazole-trimethoprim (Bactrim DS) 800-160 MG per tablet documented in this encounter [facility] 09-19-2023 History of Presen t illness [...] XL, Qudexy) Anti-Depressant and Antipsychotic Amitriptyline (Elavil) [place] (Eskalith, Lithobid) Nortriptyline (Pamelor, Aventyl) Anti-Migraine Dihydroergotamine [...] ZOLMitriptan (ZOMIG) 5 mg nasal spray^Use 1 Tipton in the nose as needed at onset [...] these with the patient: yes Logan Barth APRN.INSPECTOR AIDE HEADACHE SCORES: 03/22/2023 07/10/2023 09/19/2023 Headache Questions [...] spontaneous and fluent without dysarthria. Short and longitudinal float operator memory, cognition and general fund of [...] XL, Qudexy) Anti-Depressant and Antipsychotic Amitriptyline (Elavil) [place] (Eskalith, Lithobid) Nortriptyline (Pamelor, Aventyl) Blood Pressure [...] which included preparing to see the patient, [id number] patient care, completing clinical documentation, obtaining and/or reviewing separately obtained history, counseling and educating the patient/family/caregiver, ordering medications, tests, or procedures, and care coordination (not separately reported). Logan Barth APRN.CNP Headache Section [facility] September 19, 2023 documented in this encounter [facility] 09-19-2023 Note HNO ID: [id number] Author: LOGAN BARTH APRN.CNP Service: ? Author [...] XL, Qudexy) Anti-Depressant and Antipsychotic Amitriptyline (Elavil) [place] (Eskalith, Lithobid) Nortriptyline (Pamelor, Aventyl) Anti-Migraine Dihydroergotamine [...] ZOLMitriptan (ZOMIG) 5 mg nasal sprayUse 1 Tipton in the nose as needed at onset [...] these with the patient: yes Logan Barth APRN.INSPECTOR AIDE HEADACHE SCORES: 03/22/2023 07/10/2023 09/19/2023 Headache Questions [...] of headache after (more content not included)... [facility] 08-18-2023 Instructions Curtis Lepe PA-C - 08/18/2023 2:39 PM EDT You received a greater occipital nerve block (GONB) today You may feel sore tomorrow at the site of the injection. You may use heat or ice for discomfort and gentle stretching. This should resolve in 24-36 hours. Greater Occipital Nerve Block (GONB) Article in [employer] Journal By: Molina Barraza MD Many patients with chronic headache report that their pain typically arises from the neck or, more specifically, the base of the skull. Often that pain arises on one side or the other and extends forward to involve the top of the head, the restorationist, the forehead, the eye or some combination [...] give it at least one more try. https://americanheadachesociety .org/wp-content/uploads/ /Vhwdnyqkf-Epjwx-Zmoedn_[email or web address].pdf documented in this encounter [facility] 08-18-2023 History of Presen t illness [...] to follow-up with epilepsy clinic -Follow-up with [facility] in 1 month Curtis Lepe PA-C Headache Section [facility] August 18, 2023 documented in this encounter [facility] 08-18-2023 Note HNO ID: [id number] Author: CURTIS LEPE PA-C Service: ? Author Type: Physician Act Tutor Type: Progress Notes Filed: 08/18/2023 14:39 Note [...] of Care Visit completed when applicable. Curtis eLpe PA-C 6 cc 0.5% Ropivacaine prepared in [...] 1 month Curtis Lepe PA-C Headache Section [facility] August 18, 2023 [facility] 08-16-2023 Telephone encounter Note Forwarded to provider for review. PAPO: 07/10/2023 Future OV: 09/19/2023 Encounter from [facility] today 08/16/2023 [facility] 08-16-2023 Miscellaneous Notes Forwarded to provider for review. PAPO: 07/10/2023 Future OV: 09/19/2023 Encounter from [facility] today 08/16/2023 documented in this encounter [facility] 07-10-2023 History of Presen t illness [...] visit. Either the patient or their legal marketing sales representative has been informed of the [...] XL, Qudexy) Anti-Depressant and Antipsychotic Amitriptyline (Elavil) [place] (Eskalith, Lithobid) Nortriptyline (Pamelor, Aventyl) Anti-Migraine Dihydroergotamine [...] ZOLMitriptan (ZOMIG) 5 mg nasal spray^Use 1 Tipton in the nose as needed at onset [...] these with the patient: yes Logan Barth APRN.INSPECTOR AIDE HEADACHE SCORES: 12/12/2022 03/22/2023 07/10/2023 Headache Questions [...] Lymph 1.00 - 4.00 k/uL 0.84 Abs Dale <0.87 k/uL 0.06 Abs Eosin <0.46 k/uL [...] spontaneous and fluent without dysarthria. Short and shelter memory, cognition and general fund of knowledge [...] XL, Qudexy) Anti-Depressant and Antipsychotic Amitriptyline (Elavil) [place] (Eskalith, Lithobid) Nortriptyline (Pamelor, Aventyl) Blood Pressure [...] (ZOMIG) 5 mg nasal spray Use 1 [place]ipt[place] in the nose as needed at onset [...] 40 minutes Logan Barth APRN.FADY Headache [facility] July 10, 2023 documented in this encounter [facility] 07-10-2023 Note HNO ID: [id number] Author: LOGAN BARTH APRN.FADY Service: ? Author [...] visit. Either the patient or their legal marketing sales representative has been informed of the [...] XL, Qudexy) Anti-Depressant and Antipsychotic Amitriptyline (Elavil) [place] (Eskalith, Lithobid) Nortriptyline (Pamelor, Aventyl) Anti-Migraine Dihydroergotamine [...] ZOLMitriptan (ZOMIG) 5 mg nasal sprayUse 1 Tipton in the nose as needed at onset [...] these with the patient: yes Logan Barth APRN.INSPECTOR AIDE HEADACHE SCORES: 12/12/2022 03/22/2023 07/10/2023 Headache Questions ER visits since last office visit: 6 6 8 Hospital stays [facility] (more content not included)... [facility] 06-26-2023 Telephone encounter Note Called Pt to clarify ER visit. States she was seen this morning at [facility] and given a Compazine and steroid shot States she cannot remember the name of steroid that was given. Information passed on to care team. Marc TOMAS RN Clinical Jumpbasting Machine Operator [facility] 06-26-2023 Miscellaneous Notes Called Pt to clarify ER visit. States she was seen this morning at [facility] and given a Compazine and steroid shot States she cannot remember the name of steroid that was given. Information passed on to care team. Marc TOMAS, PRATIBHA Clinical Jumpbasting Machine Operator [facility] documented in this encounter [facility] 06-26-2023 Telephone encounter Note Forwarded to provider for review. PAPO: 04/14/2023 with Suzan Driver APRN.FADY Future OV: None scheduled [facility] 06-26-2023 Miscellaneous Notes Forwarded to provider for review. PAPO: 04/14/2023 with Suzan Driver APRN.INSPECTOR AIDE Future OV: None scheduled MyChart message sent to patient to gain more information in regards to patient's migraine. documented in this encounter [facility] 06-26-2023 Telephone encounter Note MyChart message sent to patient to gain more information in regards to patient's migraine. [facility] 04-14-2023 Instructions Suzan Driver APRN.FADY - 04/14/2023 10:49 AM EST Follow up/ [...] video on how to give the injection: [email or web address]/ Aimovig must be approved by your insurance [...] refilled without delays. 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 Short and longitudinal float operator memory, cognition and general fund of [...] which included preparing to see the patient, [id number] patient care, completing clinical documentation, obtaining and/or reviewing separately obtained history, performing a medically appropriate examination, counseling and educating the patient/family/caregiver, and ordering medications, tests, or procedures. Suzan Driver APRN.INSPECTOR AIDE Headache Section [facility] documented in this encounter [facility] 04-14-2023 Note HNO ID: [id number] Author: SUZAN DRIVER APRN.FADY Service: ? 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 Short and shelter memory, cognition and general fund of knowledge [...] which included preparing to see the patient, [id number] patient care, completing clinical documentation, obtaining and/or reviewing separately obtained history, performing a medically appropriate examination, counseling and educating the patient/family/caregiver, and ordering medications, tests, or procedures. Suzan Driver APRN.INSPECTOR AIDE Headache Section [facility] 04-14-2023 Note HNO ID: [id number] Author: INOCENCIO NAIR RN Service: ? Author Type: Registered Nurse Type: Progress Notes Filed: 04/14/2023 11:51 Note Text: Pt in for 3rd day of infusion. Pt rated headache 6/10. Pt has severe nausea and moderate dizziness. Educated pt on medications to be administered. Pt agreed to proceed as ordered. Patient has school bus driver/custodian today. @0915: Patient tearful and c/o PIV site burning and very painful. No infiltration or redness of site noted, Ice-pack placed over PIV site. After a few minutes pt reported the ice-pack did not help and wanted PIV to be removed. PIV site removed. Patient remained very anxious and tearful, and requesting if anything else can be given for anxiety. [facility] PHOTO CARTOGRAPHER notified. New PIV site started, 2nd dose of Benadryl given for anxiety. 2nd line: Compazine given for severe nausea. [facility]HER to hold Periactin today as the two doses of Benadryl and Compazine can cause drowsiness. Pts infusion complete, tolerated infusion. Headache 4/10. Pt stated no nausea and moderate dizziness. PIV site removed. Pt discharged from txt room at 1124 via wheelchair to ride in [employer]. [facility] 04-14-2023 History of Presen t illness Narrative Pt in for 3rd day of infusion. Pt rated headache 6/10. Pt has severe nausea and moderate dizziness. Educated pt on medications to be administered. Pt agreed to proceed as ordered. Patient has school bus driver/custodian today. @0915: Patient tearful and c/o PIV site burning and very painful. No infiltration or redness of site noted, Ice-pack placed over PIV site. After a few minutes pt reported the ice-pack did not help and wanted PIV to be removed. PIV site removed. Patient remained very anxious and tearful, and requesting if anything else can be given for anxiety. [employer] PHOTO CARTOGRAPHER notified. New PIV site started, 2nd dose of Benadryl given for anxiety. 2nd line: Compazine given for severe nausea. Per [facility] PHOTO CARTOGRAPHER to hold Periactin today as the two doses of Benadryl and Compazine can cause drowsiness. Pts infusion complete, tolerated infusion. Headache 4/10. Pt stated no nausea and moderate dizziness. PIV site removed. Pt discharged from txt room at 1124 via wheelchair to ride in [facility]. documented in this encounter [facility] 04-13-2023 Note HNO ID: [id number] Author: JOHANA CANCINO RN Service: ? Author [...] She is working with a psychiatrist in [place] . Voiced stress is her biggest trigger for headaches. 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 I mentioned to patient our reboot program . Patient very interested to learn about it. Message send to our scheduler maintenance and Rhina Lim to set up patient for evaluation. 1020 Patient sleeping on and off. Nausea subsiding. Patient declined Zofran. Stated Zofran ineffective. 1050 Infusion complete. Patient slept on and off. Nausea resolved. PINEDA 6/10. Patient verbal , appears sedated . D/c via wheel chair to her in [facility]. [facility] 04-13-2023 History of Presen t illness Narrative [...] She is working with a psychiatrist in [place] . Voiced stress is her biggest trigger for headaches. 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 I mentioned to patient our reboot program . Patient very interested to learn about it. Message send to our scheduler maintenance and Rhina Lim to set up patient for evaluation. 1020 Patient sleeping on and off. Nausea subsiding. Patient declined Zofran. Stated Zofran ineffective. 1050 Infusion complete. Patient slept on and off. Nausea resolved. PINEDA 6/10. Patient verbal , appears sedated . D/c via wheel chair to her in [facility]. documented in this encounter [facility] 04-13-2023 Miscellaneous Notes Patient is currently receiving infusions for headache. She is interested in learning about reboot program. Please schedule for evaluation. 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 Short and longitudinal float operator memory, cognition and general fund of [...] which included preparing to see the patient, xptb-dy-geiv patient care, completing clinical documentation, obtaining and/or reviewing separately obtained history, performing a medically appropriate examination, counseling and educating the patient/family/caregiver, and ordering medications, tests, or procedures. Suzan Driver APRN.FADY Headache Section [facility] documented in this encounter [facility] 04-12-2023 Note HNO ID: [id number] Author: SUZAN DRIVER APRN.FADY Service: ? 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 Short and shelter memory, cognition and general fund of knowledge [...] which included preparing to see the patient, eskr-fw-hddq patient care, completing clinical documentation, obtaining and/or reviewing separately obtained history, performing a medically appropriate examination, counseling and educating the patient/family/caregiver, and ordering medications, tests, or procedures. Suzan Driver APRN.INSPECTOR AIDE Headache Section [facility] 04-12-2023 Note HNO ID: [id number] Author: SUZAN JEFF RN Service: ? Author [...] vs oral periactin for sedation. Rhina Driver PHOTO CARTOGRAPHER updated and agreeable. PIV started on 3rd [...] dizziness. Pt discharged from treatment room with school bus driver/custodian via wheelchair due to effects from oral medications. [facility] 04-12-2023 History of Presen t illness Narrative 1105 Patient in for first day of IV infusions. Patient rated headache 8/10. Patient stated severe nausea and mild dizziness. Patient educated on medications to be administered. Patient verbalized understanding and agreed to proceed with infusions. Patient requested the PRN IV Benadryl vs oral periactin for sedation. Rhina Driver PHOTO CARTOGRAPHER updated and agreeable. PIV started on 3rd [...] dizziness. Pt discharged from treatment room with school bus driver/custodian via wheelchair due to effects from oral medications. documented in this encounter [facility] 04-12-2023 Instructions Suzan Driver APRN.INSPECTOR AIDE - 04/12/2023 11:52 AM EST General Headache [...] much light. These can be obtained at [employer] or [employer]: see list below. 2. Limit use of acute treatments (yrrh-wov-mjwbxqg medications, triptans, etc.) to no more than [...] and quiet environment. Relax and reduce stress. Smnikau8Qnvbd is a free catrina that can instruct you on some simple relaxtion and breathing techniques. Http://STEERads is a free website that provides teaching [...] ensuing treatment plans will be released via EdRover and discussed during your follow-up appointment. Follow-up appointments are primarily provided by the Nurse Practitioners and Physician s Assistants in order to provide timely, accessible care. [employer]: Please ask the schedulers to give you an activation code. The main way of communication is by [employer] rather than phone lines, so if you have not signed up, please do so. [employer] is also the way that you can review your labs and testing. We are not able to contact everyone to tell them results are normal. If you do not hear back from us regarding testing you have had, it should be considered normal or within normal range. If you have any questions about the results, you are free to message us. EdRover is meant for simple questions regarding medications, possible side effects, or other simple straight forward questions in limited sentences, rather than multiple paragraphs of discussion. Ed[employer]over is not meant for, or efficient for these complex questions, extensive questions, extensive medication adjustments, complex new symptoms or concerns. These issues beyond simple questions require a follow up visit with myself, one of our physician assistants, nurse practitioners, or a Virtual Visit via computer or smart phone, as detailed further down. Please contact [employer] if you are having issues with EdRover or logging in to your virtual visit appointment. You can reach them at [phone] Refills: Please pay attention to when your [...] pepperoni, Pickled reynoso Pods of broad carmona (Ukrainian beans, Greenlandic pea pods, Norwegian (jc) beans, frazier and navy beans Ripe [...] convincingly provoke headaches. documented in this encounter [facility] 04-03-2023 Miscellaneous Notes Ambulatory Pharmacy Prior Authorization Note Provider Intervention Required?: No- Pharmacy completed on your behalf. Rx Plan: Medicaid [facility] ([facility]) Drug: Aimovig 70MG/ML auto-injectors Cover My Meds Chong: [id number] Determination: Approved Prior Authorization/Case #: n/a Prior [...] refills. Prescriptions will now be processed through [facility] for determination of next steps. For questions relating to this submission, please contact [facility] at [phone] [facility] received prescription(s) for Aimovig 70MG/ML auto-injectors . Benefits investigation was conducted, indicating that a prior authorization is required. PA was initiated and pending review through [employer]. All pertinent clinical information was submitted to insurance. CMM Chong: [id number] Ordering Provider: Logan Barth APRN.CNP Murtaugh, Alisha, RN [facility] P: , F: documented in this encounter [facility] 03-23-2023 Note HNO ID: [id number] Author: LOGAN BARTH APRN.FADY Service: ? Author [...] visit. Either the patient or their legal marketing sales representative has been informed of the [...] XL, Qudexy) Anti-Depressant and Antipsychotic Amitriptyline (Elavil) [place] (Eskalith, Lithobid) Nortriptyline (Pamelor, Aventyl) Anti-Migraine Dihydroergotamine [...] ZOLMitriptan (ZOMIG) 5 mg nasal sprayUse 1 Tipton in the nose as needed at onset [...] Rfl: lamoTRIgine (LAMICTAL) (more content not included)... [facility] 03-22-2023 Note HNO ID: [id number] Author: SUZAN DRIVER APRN.INSPECTOR AIDE Service: ? Author Type: Nurse Practitioner Type: Progress Notes Filed: 03/22/2023 16:40 Note Text: Headache Center - Virtual Visit Infusion Triage This visit was conducted as a virtual visit, with patient's permission, via Zoom. It required patient-provider interaction for the medical decision making as documented below. Patient stated name and Patient location [place] I have communicated my name and active licensure. The patient's identity and physical location were verified at the time of this visit. Either the patient or their legal marketing sales representative has been informed of the [...] scheduled, will have schedulers contact her Parafon rudye ineffective, will retrial Norflex instead If no [...] XL, Qudexy) Anti-Depressant and Antipsychotic Amitriptyline (Elavil) [place] (Eskalith, Lithobid) Nortriptyline (Pamelor, Aventyl) Anti-Migraine Dihydroergotamine [...] ZOLMitriptan (ZOMIG) 5 mg nasal sprayUse 1 Tipton in the nose as needed at onset [...] keTORolac (TORADOL) 1 (more content not included)... [facility] 12-13-2022 Miscellaneous Notes Images from the original note were not included. Called patient to schedule for 3 days of Non DHE IV infusions. She started she was currently driving and would call back to schedule Logan Barth APRN.INSPECTOR AIDE P Headache Infusion Scheduling Pool; P C21 Botox Pool Pls schedule for infusions, and also her next botox treatment - thank you. KG documented in this encounter [facility] 12-13-2022 Miscellaneous Notes PA submitted through CoverMyMeds for Orphenadrine Citrate ER 100mg. Chong Code: [id number] documented in this encounter [facility] 12-09-2022 Miscellaneous Notes Patient would also [...] as needed (severe migraine). [facility] Name: [facility] documented in this encounter [facility] 11-11-2022 History of Presen t illness [...] d/c since symptoms have resolved. Suzan Driver APRN.INSPECTOR AIDE 0824: Patient in for first day of IV infusions. Patient rated headache 8/10. Patient stated severe nausea and severe dizziness. Patient educated on medications to be administered. Patient verbalized understanding and agreed to proceed with infusions. She does have a school bus driver/custodian. She would like PRN benadryl for sedation. [...] with it. Message sent to Suzan Driver PHOTO CARTOGRAPHER to update. Benadryl hypersensitivity released and administered. Pt also very nauseated. PRN zofran administered. 1050: Pt fell back asleep. Woke pt up and she she stated relief from all itching. Denies any other symptoms/side effects at this time. Pts infusions complete. Pt rated headache 7/10. Pt stated mild nausea and denied dizziness. 1055: Suzan Driver PHOTO CARTOGRAPHER in txt room to see patient. 1105: Pt discharged from treatment room via wheelchair due to drowsiness to her significant other. 1110: When cleaning chair after pt left, white pill found in chair. Tablet identified as baclofen. During initial assessment, after reviewing home medication list, pt denied any other medications missing from the list. Baclofen not listed on home medication list. Suzan Driver PHOTO CARTOGRAPHER notified. documented in this encounter [facility] 11-10-2022 History of Presen t illness Narrative Images from the original note were not included. Headache Center - Virtual Visit Infusion Triage This visit was conducted as a virtual visit, with patient's permission, via ZOOM. It required patient-provider interaction for the medical decision making as documented below. Patient stated name and Patient location [facility] I have communicated my name and active licensure. The patient's identity and physical location were verified at the time of this visit. Either the patient or their legal marketing sales representative has been informed of the [...] NS New health events/diagnosis since last visit (SD/stroke/DM/HTN/etc): no Cardiovascular risk factors: none Past infusion intolerances: July 2022(Zofran,phenergan,benadryl, DHE,Toradol,Keppra,mag,robaxin, ) DHE itching perineum Headache 1 Location: frontal Quality/Description: throbbing, pressure and piercing/stabbing Associated Symptoms: Photophobia: yes Phonophobia: yes Nausea: yes Vomiting: yes Other symptoms: neck pain Worse with activity: yes Number of migraine headache days/month: 6 Migraine headache severity: /10 Number of headache free days/month: 10 Duration [...] Lymph 1.00 - 4.00 k/uL 0.84 (L) Dale% % 0.7 Abs Dale <0.87 k/uL 0.06 Eosin% % 0.1 Abs [...] 2.7 TSH 0.270 - 4.200 mIU/L 0.537 [place] 0.6 - 1.2 mmol/L 0.1 (L) Analgesic Ketorolac (Toradol) Anti-Convulsant Lamotrigine (Lamictal) Topiramate (Topamax, Trokendi XL, Qudexy) Anti-Depressant and Antipsychotic Amitriptyline (Elavil) [place] (Eskalith, Lithobid) Nortriptyline (Pamelor, Aventyl) Anti-Migraine Dihydroergotamine [...] ZOLMitriptan (ZOMIG) 5 mg nasal spray^Use 1 Tipton in the nose as needed at onset [...] these with the patient: yes Ольга Aguilar APRN.INSPECTOR AIDE HEADACHE SCORES: Headache Questions 06/24/2022 08/31/2022 09/12/2022 [...] in rate, volume and articulation. Short and longitudinal float operator memory, cognition and general fund of [...] 25 minutes Ольга Aguilar APRN.FADY Headache Section [facility] November 10, 2022 documented in this encounter [facility] 11-10-2022 Miscellaneous Notes PATIENT SCHEDULED FOR TRIAGE AND TENTATIVE INFUSION NI PHONE Name of caller : Sandie Relationship to patient : Self If not self Will need patient permission to release results or disclose health information with called documented in fyi. Was permission obtained from patient ? Yes Patient identified by Name and Date of . ( Coni Pradeep Nicholson, 1995). Yes Reason for Call : Other Patient wants to get infusions scheduled. Number to return call [phone] Okay to leave a message ? Yes Last office visit 10/12/22 with Aneumed Next office visit Not scheduled. Thank you calling [facility] [place]. You will receive a return call within 48 hours ( or 2 business days if close to the weekend). If you feel that this is an urgent issue and needs immediate attention, it is recommended that you contact your primary care provider office or proceed to your nearest Urgent Care Center of Emergency Room ED for evaluation/treatment. documented in this encounter [facility] 10-06-2022 Miscellaneous Notes Ambulatory Pharmacy Prior Authorization Note Provider Intervention Required?: No- Pharmacy completed on your behalf. Rx Plan: Medicaid [facility] ([facility]) Drug: Zomig 5MG nasal spray Cover My Meds Chong: [id number] Determination: Approved Prior Authorization/Case #: n/a Prior [...] refills. Prescriptions will now be processed through [facility] for determination of next steps. For questions relating to this submission, please contact [facility] at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 Type Date 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 ACP-Advance Directive ACP-Power of Functional Analyst Latest Code Status on File Code Status [...] veloz Referred To Contact Jesse Borrego MD [address] [place] [address] Referral ID Status Reason Start Date Expiration Date Visits Re quested Visits Authorized [id number] Closed 1 1 Specialty Diagnoses / Procedures Referred By Contac t Referred To Contact Diagnoses 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 with status migrainosus Intractable chronic migraine without aura and without status migrainosus Procedures PROVIDER ORDERED FOLLOW UP OFFICE/OUTPATIENT NEW HIGH MDM 60 MINUTES Suzan Driver APRN.INSPECTOR AIDE [address] [id number] Referral ID Status Reason Start Date Expiration Date Visits Requested Visits Authorized [id number] Authorized PCP Requested Referral 07/13/2023 04/13/2024 1 1 Specialty Diagnoses / Procedures Referred By Contac t Referred To Contact Diagnoses Intractable chronic migraine without aura and without status migrainosus Procedures PROVIDER ORDERED FOLLOW UP OFFICE/OUTPATIENT NEW HIGH MDM 60 MINUTES Logan Barth APRN.INSPECTOR AIDE [address] [place] [address] Referral ID Status Reason Start Date Expiration Date Visits Requested Visits Authorized [id number] Authorized PCP Requested Referral 10/10/2023 07/09/2024 1 1 Specialty Diagnoses / Procedures Referred By Contac t Referred To Contact Logan Barth APRN.INSPECTOR AIDE [address] [place] [address] Referral ID Status Reason Start Date Expiration Date V isits Requested Visits Authorized [id number] Authorized 07/10/2023 09/22/2023 1 1 Specialty Diagnoses / Procedures Referred By Contac t Referred To Contact Psychology Diagnoses Psychogenic nonepileptic seizure Procedures CONSULT TO PSYCHOLOGY OFFICE/OUTPATIENT NEW HIGH MDM 60 MINUTES Curtis Lepe PA-C [address] [id number] Referral ID Status Reason Start Date Expiration Date Visits Requested Visits Authorized [id number] Pending Review PCP Requested Referral 08/18/2023 08/17/2024 1 1 Additional Source Comments Source Comments (unrecognize d section and content) In the event this informatio n is protected by the Federal Confidentiality of Alcohol and Drug Abuse Patient Records regulations: The Federal rules restrict any use of the information to criminally investigate or prosecute any alcohol or drug abuse patient.[facility] the event this information is protected by the Federal Confidentiality of Alcohol and Drug Abuse Patient Records regulations: The Federal rules restrict any use of the information to criminally investigate or prosecute any alcohol or drug abuse patient.[facility] the event this information is protected by the Federal Confidentiality of Alcohol and Drug Abuse Patient Records regulations: The Federal rules restrict any use of the information to criminally investigate or prosecute any alcohol or drug abuse patient.[facility] the event this information is protected by the Federal Confidentiality of Alcohol and Drug Abuse Patient Records regulations: The Federal rules restrict any use of the information to criminally investigate or prosecute any alcohol or drug abuse patient.[facility] the event this information is protected by the Federal Confidentiality of Alcohol and Drug Abuse Patient Records regulations: The Federal rules restrict any use of the information to criminally investigate or prosecute any alcohol or drug abuse patient.[facility] the event this information is protected by the Federal Confidentiality of Alcohol and Drug Abuse Patient Records regulations: The Federal rules restrict any use of the information to criminally investigate or prosecute any alcohol or drug abuse patient.[facility] Hospital[facility] the event this information is protected by the Federal Confidentiality of Alcohol and Drug Abuse Patient Records regulations: The Federal rules restrict any use of the information to criminally investigate or prosecute any alcohol or drug abuse patient.[facility] HospitalIn the event this information is protected by the Federal Confidentiality of Alcohol and Drug Abuse Patient Records regulations: The Federal rules restrict any use of the information to criminally investigate or prosecute any alcohol or drug abuse patient.[facility] HospitalIn the event this information is protected by the Federal Confidentiality of Alcohol and Drug Abuse Patient Records regulations: The Federal rules restrict any use of the information to criminally investigate or prosecute any alcohol or drug abuse patient.[facility] the event this information is protected by the Federal Confidentiality of Alcohol and Drug Abuse Patient Records regulations: The Federal rules restrict any use of the information to criminally investigate or prosecute any alcohol or drug abuse patient.[facility] HospitalIn the event this information is protected by the Federal Confidentiality of Alcohol and Drug Abuse Patient Records regulations: The Federal rules restrict any use of the information to criminally investigate or prosecute any alcohol or drug abuse patient.[facility] HospitalIn the event this information is protected [...] or prosecute any alcohol or drug abuse patient.[facility] HospitalIn the event this information is protected by the Federal Confidentiality of Alcohol and Drug Abuse Patient Records regulations: The Federal rules restrict any use of the information to criminally investigate or prosecute any alcohol or drug abuse patient.[facility] HospitalIn the event this information is protected by the Federal Confidentiality of Alcohol and Drug Abuse Patient Records regulations: The Federal rules restrict any use of the information to criminally investigate or prosecute any alcohol or drug abuse patient.[facility] HospitalIn the event this information is protected by the Federal Confidentiality of Alcohol and Drug Abuse Patient Records regulations: The Federal rules restrict any use of the information to criminally investigate or prosecute any alcohol or drug abuse patient.[facility] HospitalIn the event this information is protected by the Federal Confidentiality of Alcohol and Drug Abuse Patient Records regulations: The Federal rules restrict any use of the information to criminally investigate or prosecute any alcohol or drug abuse patient.[facility] HospitalIn the event this information is protected by the Federal Confidentiality of Alcohol and Drug Abuse Patient Records regulations: The Federal rules restrict any use of the information to criminally investigate or prosecute any alcohol or drug abuse patient.[facility] HospitalIn the event this information is protected by the Federal Confidentiality of Alcohol and Drug Abuse Patient Records regulations: The Federal rules restrict any use of the information to criminally investigate or prosecute any alcohol or drug abuse patient.[facility] HospitalIn the event this information is protected by the Federal Confidentiality of Alcohol and Drug Abuse Patient Records regulations: The Federal rules restrict any use of the information to criminally investigate or prosecute any alcohol or drug abuse patient.[facility] HospitalIn the event this information is protected by the Federal Confidentiality of Alcohol and Drug Abuse Patient Records regulations: The Federal rules restrict any use of the information to criminally investigate or prosecute any alcohol or drug abuse patient.[facility] HospitalIn the event this information is protected by the Federal Confidentiality of Alcohol and Drug Abuse Patient Records regulations: The Federal rules restrict any use of the information to criminally investigate or prosecute any alcohol or drug abuse patient.[facility] HospitalIn the event this information is protected by the Federal Confidentiality of Alcohol and Drug Abuse Patient Records regulations: The Federal rules restrict any use of the information to criminally investigate or prosecute any alcohol or drug abuse patient.[facility] HospitalIn the event this information is protected by the Federal Confidentiality of Alcohol and Drug Abuse Patient Records regulations: The Federal rules restrict any use of the information to criminally investigate or prosecute any alcohol or drug abuse patient.[facility] HospitalIn the event this information is protected by the Federal Confidentiality of Alcohol and Drug Abuse Patient Records regulations: The Federal rules restrict any use of the information to criminally investigate or prosecute any alcohol or drug abuse patient.[facility] HospitalIn the event this information is protected by the Federal Confidentiality of Alcohol and Drug Abuse Patient Records regulations: The Federal rules restrict any use of the information to criminally investigate or prosecute any alcohol or drug abuse patient.[facility] HospitalIn the event this information is protected by the Federal Confidentiality of Alcohol and Drug Abuse Patient Records regulations: The Federal rules restrict any use of the information to criminally investigate or prosecute any alcohol or drug abuse patient.[facility] HospitalIn the event this information is protected by the Federal Confidentiality of Alcohol and Drug Abuse Patient Records regulations: The Federal rules restrict any use of the information to criminally investigate or prosecute any alcohol or drug abuse patient.[facility] HospitalIn the event this information is protected by the Federal Confidentiality of Alcohol and Drug Abuse Patient Records regulations: The Federal rules restrict any use of the information to criminally investigate or prosecute any alcohol or drug abuse patient.[facility] HospitalIn the event this information is protected by the Federal Confidentiality of Alcohol and Drug Abuse Patient Records regulations: The Federal rules restrict any use of the information to criminally investigate or prosecute any alcohol or drug abuse patient.[facility] HospitalIn the event this information is protected by the Federal Confidentiality of Alcohol and Drug Abuse Patient Records regulations: The Federal rules restrict any use of the information to criminally investigate or prosecute any alcohol or drug abuse patient.[facility] HospitalIn the event this information is protected by the Federal Confidentiality of Alcohol and Drug Abuse Patient Records regulations: The Federal rules restrict any use of the information to criminally investigate or prosecute any alcohol or drug abuse patient.[facility] HospitalIn the event this information is protected by the Federal Confidentiality of Alcohol and Drug Abuse Patient Records regulations: The Federal rules restrict any use of the information to criminally investigate or prosecute any alcohol or drug abuse patient.[facility] HospitalIn the event this information is protected by the Federal Confidentiality of Alcohol and Drug Abuse Patient Records regulations: The Federal rules restrict any use of the information to criminally investigate or prosecute any alcohol or drug abuse patient.[facility] HospitalIn the event this information is protected by the Federal Confidentiality of Alcohol and Drug Abuse Patient Records regulations: The Federal rules restrict any use of the information to criminally investigate or prosecute any alcohol or drug abuse patient.[facility] HospitalIn the event this information is protected by the Federal Confidentiality of Alcohol and Drug Abuse Patient Records regulations: The Federal rules restrict any use of the information to criminally investigate or prosecute any alcohol or drug abuse patient.[facility] HospitalIn the event this information is protected by the Federal Confidentiality of Alcohol and Drug Abuse Patient Records regulations: The Federal rules restrict any use of the information to criminally investigate or prosecute any alcohol or drug abuse patient.[facility] HospitalIn the event this information is protected by the Federal Confidentiality of Alcohol and Drug Abuse Patient Records regulations: The Federal rules restrict any use of the information to criminally investigate or prosecute any alcohol or drug abuse patient.[facility] HospitalIn the event this information is protected by the Federal Confidentiality of Alcohol and Drug Abuse Patient Records regulations: The Federal rules restrict any use of the information to criminally investigate or prosecute any alcohol or drug abuse patient.[facility] HospitalIn the event this information is protected by the Federal Confidentiality of Alcohol and Drug Abuse Patient Records regulations: The Federal rules restrict any use of the information to criminally investigate or prosecute any alcohol or drug abuse patient.[facility] HospitalIn the event this information is protected by the Federal Confidentiality of Alcohol and Drug Abuse Patient Records regulations: The Federal rules restrict any use of the information to criminally investigate or prosecute any alcohol or drug abuse patient.[facility] HospitalIn the event this information is protected by the Federal Confidentiality of Alcohol and Drug Abuse Patient Records regulations: The Federal rules restrict any use of the information to criminally investigate or prosecute any alcohol or drug abuse patient.[facility] HospitalIn the event this information is protected by the Federal Confidentiality of Alcohol and Drug Abuse Patient Records regulations: The Federal rules restrict any use of the information to criminally investigate or prosecute any alcohol or drug abuse patient.[facility] HospitalIn the event this information is protected by the Federal Confidentiality of Alcohol and Drug Abuse Patient Records regulations: The Federal rules restrict any use of the information to criminally investigate or prosecute any alcohol or drug abuse patient.[facility] HospitalIn the event this information is protected by the Federal Confidentiality of Alcohol and Drug Abuse Patient Records regulations: The Federal rules restrict any use of the information to criminally investigate or prosecute any alcohol or drug abuse patient.[facility] HospitalIn the event this information is protected by the Federal Confidentiality of Alcohol and Drug Abuse Patient Records regulations: The Federal rules restrict any use of the information to criminally investigate or prosecute any alcohol or drug abuse patient.[facility] HospitalIn the event this information is protected by the Federal Confidentiality of Alcohol and Drug Abuse Patient Records regulations: The Federal rules restrict any use of the information to criminally investigate or prosecute any alcohol or drug abuse patient.[facility] HospitalIn the event this information is protected by the Federal Confidentiality of Alcohol and Drug Abuse Patient Records regulations: The Federal rules restrict any use of the information to criminally investigate or prosecute any alcohol or drug abuse patient.[facility] HospitalIn the event this information is protected by the Federal Confidentiality of Alcohol and Drug Abuse Patient Records regulations: The Federal rules restrict any use of the information to criminally investigate or prosecute any alcohol or drug abuse patient.[facility] HospitalIn the event this information is protected by the Federal Confidentiality of Alcohol and Drug Abuse Patient Records regulations: The Federal rules restrict any use of the information to criminally investigate or prosecute any alcohol or drug abuse patient.[facility] HospitalIn the event this information is protected by the Federal Confidentiality of Alcohol and Drug Abuse Patient Records regulations: The Federal rules restrict any use of the information to criminally investigate or prosecute any alcohol or drug abuse patient.[facility] HospitalIn the event this information is protected by the Federal Confidentiality of Alcohol and Drug Abuse Patient Records regulations: The Federal rules restrict any use of the information to criminally investigate or prosecute any alcohol or drug abuse patient.[facility] HospitalIn the event this information is protected by the Federal Confidentiality of Alcohol and Drug Abuse Patient Records regulations: The Federal rules restrict any use of the information to criminally investigate or prosecute any alcohol or drug abuse patient.[facility] Reason for Visit (unrecogniz ed section and content) Reason Comments Infusion Headache Specialty Diagnoses / Procedures Referred By Contac t Referred To Contact Neurology / HEADACHE Diagnoses NON-DHE #1 Procedures INFUSION HEADACHE Suzan Driver APRN.INSPECTOR AIDE [address] [place] [address] Neur Headache Main [address] [place] [address] Referral ID Status Reason Start Date Expiration Date V isits Requested Visits Authorized [id number] Authorized 04/12/2023 02/20/2024 99 99 Reason Comments Migraine Specialty Diagnoses / Procedures Referred By Contac t Referred To Contact Diagnoses Intractable chronic migraine without aura and without status migrainosus Procedures PROVIDER ORDERED FOLLOW UP OFFICE/OUTPATIENT NEW HIGH MDM 60 MINUTES Logan Barth, MANAGER CENTER.INSPECTOR AIDE [address] [place] [address] Referral ID Status Reason Start Date Expiration Date V isits Requested Visits Authorized [id number] Closed PCP Requested Referral 10/10/2023 07/09/2024 1 1 Specialty Diagnoses / Procedures Referred By Contac t Referred To Contact Diagnoses Intractable chronic migraine without aura and without status migrainosus Procedures INJECTION, EPTINEZUMAB-JJMR, 1 MG Logan Barth, MANAGER CENTER.INSPECTOR AIDE [address] [place] [address] Neur Headache Main [address] [place] [address] Referral ID Status Reason Start Date Expiration Date V isits Requested Visits Authorized [id number] Authorized 09/20/2023 03/22/2024 2 2 Reason Comments Nerve Block Specialty Diagnoses / Procedures Referred By Contac t Referred To Contact Neurology / HEADACHE Diagnoses NON-DHE #1 Procedures INFUSION HEADACHE Suzan Driver APRN.INSPECTOR AIDE [address] [place] [address] Neur Headache Main [address] [place] [address] Reason Comments Headache Infusion Reason Comments Future Appointment [place], [place], Any Reason Comments Migraine seen at [facility] yest erday for Migrane and D & [...] INFUSION HEADACHE Abdifatah Brady MD [address] [place] [address] Neur Headache Main [address] [place] [address] Referral ID Status Reason Start Date Expiration Date Visits Re quested Visits Authorized [id number] Closed 07/28/2022 09/26/2022 1 1 Reason Comments Chronic Migraine Reason Comments Chronic Migraine Reason Comments Insurance Authorization Zomig 5MG nasal spray Reason Comments Infusion Specialty Diagnoses / Procedures Referred By Contac t Referred To Contact Neurology / HEADACHE Diagnoses POSSIBLE DHE/WAITING FOR ORDERS Procedures INFUSION HEADACHE Self Neur Headache [address] [place] [address] Referral ID Status Reason Start Date Expiration Date V isits Requested Visits Authorized [id number] Authorized 11/10/2022 02/08/2023 1 99 Reason Onset [...] GREATER OCCIPITAL NERVE NERVE BLOCK Logan Barth, MANAGER CENTER.INSPECTOR AIDE [address] [place] [id number] Tyrone Dolna MD, PhD [address] [facility] [address] [place] [address] Referral ID Status Reason Start Date Expiration Date Visits Re quested Visits Authorized [id number] Closed 08/28/2023 02/20/2024 1 1 Reason Onset Date Comments Refill Request 11/10/2023 Specialty Diagnoses / Procedures Referred By Contac t Referred To Contact Diagnoses Intractable chronic migraine without aura and without status migrainosus Procedures INJECTION, EPTINEZUMAB-JJ, 1 MG Logan Barth APRN.INSPECTOR AIDE [address] [place] [address] Neur Headache Main [address] [place] [address] Reason Comments Fatigue Dizzy, shaky, very t ired, can't stay awake. clm Reason Comments Med Refill Reason Comments Shortness of Breath Leg Swelling Reason Comments Follow-up Clogged ears, hard t o breathe Reason Comments Follow-up Fever runny nose, vo miting, Reason Comments Follow-up Vomiting Ongoing for about 3 weeks Diarrhea Scheduled Active and Recently Administ ered Medications [...] content) DATE CREATED AUTHOR 12/26/2020 Maggie Espinal [facility] DATE CREATED AUTHOR AUTHOR'S ORGANIZ ATION 10/25/2021 [facility] DATE CREATED AUTHOR AUTHOR'S ORGANIZ ATION 05/26/[address] [facility] DATE CREATED AUTHOR AUTHOR'S ORGANIZ ATION 08/02/2022 [facility] DATE CREATED AUTHOR AUTHOR'S ORGANIZ ATION 02/02/2024 [facility] DATE CREATED AUTHOR AUTHOR'S ORGANIZ ATION 02/12/2024 [facility] Special[facility] DATE CREATED AUTHOR AUTHOR'S ORGANIZ ATION 02/17/2024 [facility] y[facility] Ordered Prescriptions (unrec ognized section and content) Prescription Sig Dispensed Refills Start Date End Da te lamoTRIgine (LAMICTAL) 25 MG tablet Take 2 tablets by mouth daily 30 tablet 3 10/21/2021 Care Teams (unrecognized sec tion and content) Customer Service Clerk Relationship Specialty Start Date End Date Angélica Arthur, MANAGER CENTER - INSPECTOR AIDE [address] [place] [address] PCP - General Nurse Practitioner 12/24/20 Customer Service Clerk Relationship Specialty Start Date End Date Hoy, Abdifatah M (Historical) PCP - General 05/21/13 Customer Service Clerk Relationship Specialty Start Date End Date Hoy, Abdifatah M (Historical) PCP - General 05/21/13 Customer Service Clerk Relationship Specialty Start Date End Date Hoy, Abdifatah M (Historical) PCP - General 05/21/13 Customer Service Clerk Relationship Specialty Start Date End Date Hoy, Abdifatah M (Historical) PCP - General 05/21/13 Customer Service Clerk Relationship Specialty Start Date End Date Hoy, Abdifatah M (Historical) PCP - General 05/21/13 Customer Service Clerk Relationship Specialty Start Date End Date Hoy, Abdifatah M (Historical) PCP - General 05/21/13 Customer Service Clerk Relationship Specialty Start Date End Date Hoy, Abdifatah M (Historical) PCP - General 05/21/13 Customer Service Clerk Relationship Specialty Start Date End Date Hoy, Abdifatah M (Historical) PCP - General 05/21/13 Customer Service Clerk Relationship Specialty Start Date End Date Hoy, Abdifatah M (Historical) PCP - General 05/21/13 Customer Service Clerk Relationship Specialty Start Date End Date Hoy, Abdifatah M (Historical) PCP - General 05/21/13 Customer Service Clerk Relationship Specialty Start Date End Date Hoy, Abdifatah M (Historical) PCP - General 05/21/13 Customer Service Clerk Relationship Specialty Start Date End Date Hoy, Abdifatah M (Historical) PCP - General 05/21/13 Customer Service Clerk Relationship Specialty Start Date End Date Hoy, Abdifatah M (Historical) PCP - General 05/21/13 Customer Service Clerk Relationship Specialty Start Date End Date Hoy, Abdifatah M (Historical) PCP - General 05/21/13 Customer Service Clerk Relationship Specialty Start Date End Date Hoy, Abdifatah M (Historical) PCP - General 05/21/13 Customer Service Clerk Relationship Specialty Start Date End Date Hoy, Abdifatah M (Historical) PCP - General 05/21/13 Customer Service Clerk Relationship Specialty Start Date End Date Hoy, Abdifatah M (Historical) PCP - General 05/21/13 Customer Service Clerk Relationship Specialty Start Date End Date Hoy, Abdifatah M (Historical) PCP - General 05/21/13 Customer Service Clerk Relationship Specialty Start Date End Date Hoy, Abdifatah M (Historical) PCP - General 05/21/13 Customer Service Clerk Relationship Specialty Start Date End Date Hoy, Abdifatah M (Historical) PCP - General 05/21/13 Customer Service Clerk Relationship Specialty Start Date End Date Hoy, Abdifatah M (Historical) PCP - General 05/21/13 Customer Service Clerk Relationship Specialty Start Date End Date Hoy, Abdifatah M (Historical) PCP - General 05/21/13 Customer Service Clerk Relationship Specialty Start Date End Date Hoy, Abdifatah M (Historical) PCP - General 05/21/13 Customer Service Clerk Relationship Specialty Start Date End Date Hoy, Abdifatah M (Historical) PCP - General 05/21/13 Customer Service Clerk Relationship Specialty Start Date End Date Hoy, Abdifatah M (Historical) PCP - General 05/21/13 Customer Service Clerk Relationship Specialty Start Date End Date Hoy, Abdifatah M (Historical) PCP - General 05/21/13 Customer Service Clerk Relationship Specialty Start Date End Date Hoy, Abdifatah M (Historical) PCP - General 05/21/13 Customer Service Clerk Relationship Specialty Start Date End Date Hoy, Abdifatah M (Historical) PCP - General 05/21/13 Customer Service Clerk Relationship Specialty Start Date End Date Hoy, Abdifatah M (Historical) PCP - General 05/21/13 Customer Service Clerk Relationship Specialty Start Date End Date Hoy, Abdifatah M (Historical) PCP - General 05/21/13 Customer Service Clerk Relationship Specialty Start Date End Date Hoy, Abdifatah M (Historical) PCP - General 05/21/13 Customer Service Clerk Relationship Specialty Start Date End Date Hoy, Abdifatah M (Historical) PCP - General 05/21/13 Customer Service Clerk Relationship Specialty Start Date End Date Hoy, Abdifatah M (Historical) PCP - General 05/21/13 Customer Service Clerk Relationship Specialty Start Date End Date Hoy, Abdifatah M (Historical) PCP - General 05/21/13 Customer Service Clerk Relationship Specialty Start Date End Date Lamont Shay MD [address] [place] [address] PCP - General Family Medicine 03/14/23 Customer Service Clerk Relationship Specialty Start Date End Date Hoy, Abdifatah M (Historical) PCP - General 05/21/13 Customer Service Clerk Relationship Specialty Start Date End Date Lamont Shay MD [address] [place] [address] PCP - General Family Medicine 03/14/23 Customer Service Clerk Relationship Specialty Start Date End Date Lamont Shay MD [address] [place] [address] PCP - General Family Medicine 03/14/23 Customer Service Clerk Relationship Specialty Start Date End Date Abdifatah Brady (Historical) PCP - General 05/21/13 Customer Service Clerk Relationship Specialty Start Date End Date Abdifatah Brady (Historical) PCP - General 05/21/13 Customer Service Clerk Relationship Specialty Start Date End Date Lamont Shay MD [address] [place] [address] PCP - General Family Medicine 03/14/23 Customer Service Clerk Relationship Specialty Start Date End Date Abdifatah Brady (Historical) PCP - General 05/21/13 Customer Service Clerk Relationship Specialty Start Date End Date Lamont Shay MD [address] [place] [address] [place] [address] PCP - General Family Medicine 03/14/23 Customer Service Clerk Relationship Specialty Start Date End Date Lamont Shay MD [address] [place] [address] PCP - General Family Medicine 03/14/23 Customer Service Clerk Relationship Specialty Start Date End Date Lamont Shay MD [address] [place] [address] PCP - General Family Medicine 03/14/23 Customer Service Clerk Relationship Specialty Start Date End Date Lamont Shay MD [address] [place] [address] PCP - General Family Medicine 03/14/23 Customer Service Clerk Relationship Specialty Start Date End Date Lamont Shay MD [address] [place] [address] PCP - General [facility] 03/14/23 Customer Service Clerk Relationship Specialty Start Date End Date Lamont Shay MD [address] [place] [address] PCP - [facility] 03/14/23 Customer Service Clerk Relationship Specialty Start Date End Date Lamont Shay MD [address] [place] [address] PCP - General [facility] 03/14/23 Customer Service Clerk Relationship Specialty Start Date End Date Lamont Shay MD [address] [place] [phone] PCP - General [facility] 03/14/23 Customer Service Clerk Relationship Specialty Start Date End Date Lamont Shay MD [address] [place] [phone] PCP - General Family Medicine 03/14/23 Customer Service Clerk Relationship Specialty Start Date End Date Lamont Shay MD [address] [place] [place] [phone] PCP - General Family Medicine 03/14/23 Inactive Administered Medications - up to 3 [...] BE BASED ON THE PRIMARY CLINICAL RECORDS. [employer] [facility]. provides no warranty or guarantee of the accuracy or completeness of information in this document.
== END 2024-02-19 07:09 | disposition home or self-care (01) ==
LOC: US 07:08
PROVIDERS: PCP Family Medicine; Visit Provider Obstetrics & Gynecology
DX: R10.2 Pelvic and perineal pain (principal); N83.291 Other ovarian cyst, right side
CPT/HCPCS: 76830; 76856

== ENCOUNTER 2024-03-30 06:10 | Emergency (ER) | payer OTHER, SELFPAY ==
[2024-03-30 06:15] VITALS: BP 124/81; PULSE 98; TEMP 37.3; O2SAT 95; BMI 45.3
--- OUTSIDE RECORDS SUMMARY | 2024-03-30 06:18 | XMS_ITS | CCD ---
Author Organization [facility] Care Team Providers Care Overhauler Helper Name Role Phone Abdifatah Brady (Historical) Primary Care Provide r Unavailable Kuns PROTOTYPE ENGINEER - DIET COUNSELOR, Angélica Santiago Primary Care Provider ANGÉLICA ARTHUR Primary Care Unavailable VIELKA CHING Attending Unavailable Kuns PROTOTYPE ENGINEER - DIET COUNSELOR, Angélica Santiago Primary Care Provider 1( [phone] LUCILA MOTA Attending Unavailable PAYKINGS Referring Unavailable ANGÉLICA ARTHUR Primary Care Unavailable LUCILA MOTA Admitting Unavailable Abdifatah Brady (Historical) Primary Care Provide r Unavailable KRISTOFER BURCIAGA Attending Unavailab Zay Tavarez R Referring Unavailable Abdifatah Brady (Historical) Primary Care Provide r Unavailable BRICE ., CHAYITO Admitting Unavailable BRICE ., CHAYITO Attending Unavailable BRICE ., CHAYITO Consulting Unavailable LAURITA, DR LAMONT Garcia Primary Care Unavailable ROOPA ., DR GUTIERREZ Admitting Unavailable ROOPA ., DR GUTIERREZ Attending Unavailable NADNABEELR, DR LAMONT Garcia Primary Care Unavailable ROOPA ., DR GUTIERREZ Consulting Unavailable DIAB ., [facility] Attending Unavailable DIAB ., [facility] Consulting Unavailable MISC, DR GOMEZ Primary Care Unavailable DIAB ., [facility] Admitting Unavailable MANJINDER DEAL Attending Unavailable MANJINDER DEAL Consulting Unavailable MANJINDER DEAL Admitting Unavailable NADMIKEY, DR LAMONT Garcia Primary Care Unavailable GRECHFRED .MARY Consulting Unavaildeshaun OCONNOR, DR GOMEZ Primary Care Unavailable PAY ., DR KU Admitting Unavailable PAY ., DR KU Attending Unavailable ROOPA ., DR GUTIERREZ Consulting Unavailable ROOPA ., DR GUTIERREZ Admitting Unavailable ROOPA ., DR GUTIERREZ Attending Unavailable REQUEST, DR RM LISTED Primary Care Unavaila SUKHDEEP Centeno Attending Unavailable SUKHDEEP DOCKERY Admitting Unavailable KUNKrupa, DR ANGÉLICA Santiago Primary Care Unavailable GRECHNY ., MARY WHITNEY Consulting Unavailabl e ANASTASIIA, HOSPHUONG Consulting Unavailable SUKHDEEP DOCKERY Attending Unavailable SANDHYA, DR ANGÉLICA Santiago Primary Care Unavailable SUKHDEEP DOCKERY Admitting Unavailable HAY ., DR HARMAN Consulting Unavailable KATSUKHDEEP HENNESSY Consulting Unavailable NABILA, TONY Consulting Unavailable FAWWAD, LEW H Admitting Unavailable FAWWAD, LEW H Attending Unavailable ZISYDNIE, DR LOPEZ Santiago Consulting Unavailable REQUEST, DR NONE LISTED Primary Care Unavaila ble PAY ., DR KU Consulting Unavailable SAY, MANJINDER Consulting Unavailable FAWWAD, LEW H Consulting Unavailable SAY, MANJINDER Admitting Unavailable SAY, MANJINDER Attending Unavailable SAY, MANJINDER Consulting Unavailable KUNKrupa, DR ANGÉLICA Santiago Primary Care Unavailable SAY, MANJINDER Attending Unavailable SAY, MANJINDER Consulting Unavailable REQUEST, DR NONE LISTED Primary Care Unavaila ble SAY, MANJINDER Admitting Unavailable PATRICIA WALSH Consulting Unavailable [facility] [place]OME[place] Primary Care Unavailable HAY ., DR HARMAN Attending Unavailable HAY ., DR HARMAN Admitting Unavailable NEWSTEWART, NICHOLAS Consulting Unavailable UNLU, SINDY Consulting Unavailable ROOPA ., DR GUTIERREZ Admitting Unavailable ROOPA ., DR GUTIERREZ Consulting Unavailable [facility] Primary Care Unavailable ROOPA ., DR GUTIERREZ Attending Unavailable KUNS, DR ANGÉLICA Santiago Primary Care Unavailable ROOPA ., DR GUTIERREZ Admitting Unavailable ROOPA ., DR GUTIERREZ Attending Unavailable ROOPA ., DR GUTIERREZ Consulting Unavailable ROOPA ., DR GUTIERREZ Admitting Unavailable ROOPA ., DR GUTIERREZ Attending Unavailable NADERER, DR LAMONT Garcia Primary Care Unavailable [facility] Primary Care Unavailable HAY ., DR HARMAN Consulting Unavailable HAY ., DR HARMAN Admitting Unavailable HAY ., DR HARMAN Attending Unavailable KONNICOLE KING Consulting Unavailable KUNKrupa, DR ANGÉLICA Santiago Primary Care Unavailable MARKER ., DR ONEAL Attending Unavailable MARKER ., DR ONEAL Consulting Unavailable MARKER ., DR ONEAL Admitting Unavailable SCHNECHRISTINE, ROBIN Consulting Unavailable SAY, MANJINDER Attending Unavailable SAY, MANJINDER Consulting Unavailable SAY, MANJINDER Admitting Unavailable KUNKrupa, DR ANGÉLICA Santiago Primary Care Unavailable KUNKrupa, DR ANGÉLICA Santiago Referring Unavailable ROOPA ., DR GUTIERREZ Admitting Unavailable ROOPA ., DR GUTIERREZ Attending Unavailable ROOPA ., DR GUTIERREZ Consulting Unavailable REQUEST, DR NONE LISTED Primary Care Unavaila ble AGUBOSIM, BARON Consulting Unavailable ROOPA ., DR GUTIERREZ Procedure Practitioner Unavail able KRYSTIN HERNADEZ Consulting Unavailable LUCIEKLEBER Rodriguez Consulting Unavailable DORSHARDA MCCARTY Consulting Unavailable ALECIA ., DENNIS Admitting Unavailable [...] Unavailable Lamont Shay MD Primary Care Provider ZAY BLAS Attending Unavailable LAMONT SHAY Attending Unavailable ZAY BLAS Attending Unavailable SHAIKH WALLS Attending Unavailable ZAY BLAS Attending Unavailable LAMONT SHAY Attending Unavailable LAURITA, LAMONT Attending Unavailable ROOPA, ZAY Attending Unavailable LAURITA, LAMONT Attending Unavailable LAMONT SHAY Attending Unavailable LAURITA, LAMONT Attending Unavailable ZAY BLAS Attending Unavailable ZAY BLAS Attending Unavailable Dariusz Estrada Admitting Unavailable Dariusz Estrada Attending Unavailable Lamont Shay Primary Care Unavailable NON STAFF Primary Care Unavailable Ramsey Maloney Admitting Unavailab Ramsey Park Attending Unavailab Lamont Finnegan MD Primary Care Provider LOGAN BARTH Attending Unavailable GREENCAMERONI Referring Unavailable BIDDLECOM, SUZAN Referring Unavailable BIDDLECOM, SUZAN Referring Unavailable BIDDLECOM, SUZAN Attending Unavailable ОЛЬГА AGUILAR Attending Unavailable BIDDLECOM, SUZAN Referring Unavailable GREEN, KOLI Referring Unavailable ОЛЬГА AGUILAR Attending Unavailable GREEN KOLI Referring Unavailable GREENLOGAN Attending Unavailable CURTIS LEPE Attending Unavailable BIDDLECOM, SUZAN Referring Unavailable GREEN, KOLI Referring Unavailable GREENLOGAN Attending Unavailable RAIZA MORALES Attending Unavailable BIDDLECOM, SUZAN Referring Unavailable LOGAN BARTH Attending Unavailable BIDDLECOM, SUZAN Referring Unavailable BIDDLECOM, SUZAN Attending Unavailable BIDDLECOM, SUZAN Referring Unavailable BIDDLECOM, SUZAN Referring Unavailable Asif MORENO, Corine Lynn Primary Care Provider Allergies Allergy Classification Reported Allergen(s) Allergy Type Date of Onset Reaction(s) Facility Anti-Epileptic Agents (1 source) levETIRAcetam Drug Allergy [address] [facility] Work Phone: Cephalosporins (antibiotic) (1 source) Cephalexin Drug Allergy Rash [facility] Dextromethorphan / Pyrilamine (1 source) Dextromethorphan / Pyrilamine Drug Allergy [address] [facility] Work Phone: Dihydroergotamine (1 source) Dihydroergotamine Drug Allergy [address] [facility] DOPamine Antagonists (1 source) Metoclopramide Drug Allergy Intolerance [facility] Macrolides (antibiotic) (1 source) Azithromycin Drug Allergy Other: See Comments [facility] vortioxetine (1 source) vortioxetine Drug Allergy Hives [facility] (20 sources) Azithromycin; Translations: [AZITHROMYCIN] Drug Allergy Hives, Other: See Comments [facility] (10 sources) carBAMazepine Drug Allergy Other (See Comments) [facility] (20 sources) Cephalexin; Translations: [CEPHALEXIN] Drug Allergy Hives, Rash [facility] (20 sources) Metoclopramide; Translations: [METOCLOPRAMIDE] Drug Allergy Hives, Intolerance, Unknown, Rash, Other (See Comments) [facility] (10 sources) Propranolol Drug Allergy Hives, Other (See Comments) [facility] (20 sources) Adhesive Tape-Silicones; Translations: [ADHESIVE TAPE-SILICONES] Drug Allergy Rash [facility] (20 sources) Dextromethorphan / Pyrilamine; Translations: [PYRILAMINE-DEXTROME THORPHAN] Drug Allergy 022 [facility] Work Phone: (20 sources) vortioxetine; Translations: [VORTIOXETINE] Drug Allergy 022 [facility] Work Phone: (20 sources) Dihydroergotamine; Translations: [DIHYDROERGOTAMINE] Drug Allergy 023 Intolerance, GI intolerance, GI Disturbance, [facility] (1 source) Azithromycin Drug Allergy [facility] (1 source) bee venom Drug allergy (disorder) [facility] (1 source) Cephalexin Drug Allergy [facility] (1 source) Desonide Drug Allergy [facility] (1 source) Iothalamate Drug Allergy [facility] (2 sources) Propranolol; Translations: [PROPRANOLOL] Drug Allergy 021 [facility] (1 source) [place] [facility] Drug allergy (disorder) [facility] (20 sources) levETIRAcetam; Translations: [LEVETIRACETAM] Drug Allergy 023 Itching, [facility] Work Phone: (2 sources) Valproate; Translations: [DIVALPROEX] Drug Allergy 024 [facility] Work Phone: (20 sources) busPIRone Drug Allergy 022 [facility] Work Phone: (20 sources) Carbamazepine Allergy to substance 021 Unknown [facility] (20 sources) Ciprofloxacin Drug Allergy 023 [facility] (20 sources) Clarithromycin Allergy to substance 024 GI intolerance [facility] (20 sources) Clindamycin Drug Allergy 021 Unknown, [facility] (20 sources) Dextromethorphan Drug Allergy 023 [facility] (20 sources) Dextromethorphan / Pyrilamine Drug Allergy 022 [facility] (20 sources) Honey bee venom Allergy to substance 023 Unknown [facility] (20 sources) Levetiracetam Propensity to adverse reactions Itching [facility] (20 sources) Propranolol Drug Allergy Hives, Other: See Comments [facility] (20 sources) vortioxetine Drug Allergy Hives [facility] (20 sources) Other Allergy to substance [facility] (20 sources) Wound Dressing Adhesive Drug Allergy Rash [facility] (18 sources) Prochlorperazine; Translations: [PROCHLORPERAZINE] Drug Allergy Intolerance, Anxiety [facility] (1 source) Azithromycin Drug Allergy [facility] (1 source) Cephalexin Drug Allergy [facility] (1 source) levETIRAcetam Drug Allergy [facility] (1 source) Metoclopramide Drug Allergy [facility] (1 source) Prochlorperazine Drug Allergy [facility] (8 sources) Adhesive agent Propensity to adverse reactions to drug Rash [facility] (8 sources) Dexamethasone Drug Allergy [facility] (8 sources) Metoclopramide Drug Allergy Itching, Anxiety [facility] (8 sources) Bee Venom Protein (Honey Bee) Propensity to adverse reactions to drug Anaphylaxis [facility] Medications Current Medications Medication Drug Class(es) Dates Sig (Normalized) Sig (Original) Acetaminophen (2 sources) Start: 10-19-2021 acetaminophen (TYLENOL) tablet 1,000 mg Start: 10-19-2021 End: 10-19-2021 acetaminophen (TYLENOL) tabl et 650 mg albuterol 0.83 mg/ml inhalation solution (20 sources) beta2-Adrenergic Agonist Start: 03-20-2024 take 3 mL by inhalation four times daily as needed for wheezing albuterol (PROVENTIL,VENTOLIN) 2.5 mg /3 mL (0.083 %) nebulizer solution Indications: Moderate asthma with acute exacerbation, unspecified whether persistent Inhale 3 mL (2.5 mg total) by nebulization 4 (four) times a day as needed for wheezing. 360 mL 10 03/20/2024 Active Start: 12-12-2023 End: 02-28-2024 take 2 puff(s) by inhalation every four hours for wheezing albuterol HFA 90 mcg/act inhaler Indications: Severe persistent asthma without complication (CMS/HCC) Inhale 2 puffs every 4 (four) hours if needed for wheezing or shortness of breath 8.5 g 3 12/12/2023 02/28/2024 Discontinued Start: 08-16-2023 take 2 puff(s) by in [...] needed for wheezing 75 mL 1 03/04/2023 02/28/2024 Discontinued Start: 03-04-2023 End: 12-06-2023 take 2 puff(s) by inhalation every four hours for wheezing albuterol HFA 90 mcg/act inhaler Indications: Severe persistent asthma without complication (CMS/HCC) Inhale 2 puffs every 4 (four) hours if needed for wheezing 8.5 g 3 11/06/2023 12/06/2023 Active Start: 06-07-2022 take 2 puff(s) by mo uth every four hours as needed albuterol (VENTOLIN HFA) 90 mcg/actuation inhaler Indications: Moderate persistent asthma, unspecified whether complicated INHALE TWO PUFFS BY MOUTH EVERY 4 HOURS NEEDED 18 g 1 06/07/2022 Active Start: 06-07-2022 End: 03-20-2024 take 0.63 mg by inhalation every six hours as needed for wheezing and dyspnea and dyspnea albuterol (ACCUNEB) 0.63 mg/3 mL nebulizer solution Indications: SOB (shortness of breath) Inhale 3 mL (0.63 mg total) by nebulization every 6 (six) hours as needed for wheezing. 75 mL 1 06/07/2022 03/20/2024 Discontinued baclofen 10 mg oral tablet (20 sources) gamma-Aminobutyric Acid-ergic Agonist Start: 02-15-2024 End: 02-28-2024 take 1 tablet by mouth three times daily at bedtime baclofen (Lioresal) 10 MG tablet Indications: Pelvic pain in female TAKE 1 TABLET BY MOUTH THREE TIMES DAILY (IN THE MORNING, IN THE EVENING and BEFORE bedtime) 90 tablet 2 02/15/2024 02/28/2024 Discontinued Start: 11-10-2023 End: 02-08-2024 take 1 tablet [...] as needed. benzonatate 200 mg oral capsule (16 sources) Non-narcotic Antitussive Start: 024 End: 025 take 1 capsule by mouth three times daily as needed for cough benzonatate (Tessalon) 200 MG capsule Indications: COVID-19 Take 1 capsule (200 mg) by mouth 3 (three) times a day as needed for cough Do not crush or chew. 30 capsule 1 01/24/2024 02/28/2024 Discontinued onabotulinumtoxina 200 unt injection (20 sources) Acetylcholine Release Inhibitor Start: onabotulinum toxin type A 200 Units injection (BOTOX) cetirizine hydrochloride 10 mg oral tablet (20 sources) Histamine-1 Receptor Antagonist Start: End: take 1 tablet by mouth in the morning cetirizine (ZyrTEC) 10 mg tablet Take 1 tablet (10 mg total) by mouth in the morning. 30 tablet 06/08/2022 Active chlorzoxazone 500 mg oral tablet (20 [...] for rescue. 30 tablet 0 12/09/2022 Active take 1 tablet by sami th four times daily as needed chlorzoxazone (PARAFON FORTE) 500 mg tablet Take 1 tablet (500 mg total) by mouth 4 (four) times a day as needed. Active Comment on above: Take 1 tablet [...] oral tablet (20 sources) Benzodiazepine Start: 11-24-19 End: 02-27-19 diazePAM (VALIUM) 10 mg tablet 11/23/2021 Active take 0.5 tablet by m outh at bedtime diazePAM (VALIUM) 10 mg tablet Take 0.5 tablets (5 mg total) by mouth in the morning and at bedtime. Active End: 01-09-2024 diazePAM (Valium) 2 MG [...] minutes after.. 20 tablet 01/23/2024 02/09/2024 Discontinued [id number] 0.3 ml EPINEPHrine 1 mg/ml auto-injector (8 sources) alpha-Adrenergic Agonist, beta-Adrenergic Agonist, Catecholamine Start: 06-07-2022 EPINEPHrine (EPIPEN) 0.3 mg/0.3 mL auto-injector 0.3 mL (0.3 mg total) by other route as needed (exposure to allergen). 2 each 1 06/07/2022 Active estradiol 1 mg oral tablet (20 sources) Estrogen Start: 06-29-2023 End: 02-28-2024 take 1 tablet by mouth once daily in the morning estradiol (Estrace) 1 MG tablet Indications: Vaginal discharge , Pelvic pain in female take 1 tablet by mouth every morning 30 tablet 3 06/29/2023 02/28/2024 Discontinued fluconazole 150 mg oral tablet (1 source) Azole Antifungal Start: 01-24-2024 End: 01-28-2024 take 1 tablet by mouth once fluconazole (Diflucan) 150 MG tablet Indications: Rash , Yeast dermatitis Take 1 tablet (150 mg) by mouth every 3rd (third) day for 2 doses 2 tablet 01/24/2024 01/28/2024 Active fluticasone-umecli din-vilanter (TRELEGY ELLIPTA) 200-62.5-25 mcg blister with device (4 sources) Start: 03-20-2024 take 1 puff(s) by inhalation in the morning fluticasone-umecl idin-vilanter (TRELEGY ELLIPTA) 200-62.5-25 mcg blister with device Indications: Moderate asthma with acute exacerbation, unspecified whether persistent Inhale 1 puff in the morning. 60 each 11 03/20/2024 Active 60 actuat formoterol fumarate 0.005 mg/actuat / mometasone furoate 0.1 mg/actuat metered dose inhaler (20 sources) Corticosteroid, beta2-Adrenergic Agonist Start: 04-26-2023 End: 02-28-2024 take 2 puff(s) by inhalation in the morning Dulera 100-5 MCG/ACT inhaler Inhale 2 puffs in the morning and 2 puffs before bedtime. 04/26/2023 02/28/2024 Discontinued furosemide 40 mg oral tablet (10 sources) Loop Diuretic Start: 01-23-2024 End: 02-28-2024 take 1 tablet by mouth once daily as needed for edema furosemide (Lasix) 40 MG tablet Indications: Generalized edema Take 1 tablet (40 mg) by mouth Daily as needed (Edema) 30 tablet 3 01/23/2024 02/28/2024 Discontinued Hydrocortisone (3 sources) Corticosteroid Start: 09-25-2023 End: 10-25-2023 Hydrocortisone 2 % cream Indications: Rash Apply 1 application topically in the morning and 1 application before bedtime. 28 g 09/25/2023 10/25/2023 Active ibuprofen 800 mg oral tablet (8 sources) Nonsteroidal Anti-inflammatory Drug Start: 02-10-2024 take 1 tablet by mouth three times daily ibuprofen (MOTRIN) 800 mg tablet Take 1 tablet (800 mg total) by mouth 3 (three) times a day. 21 tablet 02/10/2024 Active ketoconazole 20 mg/ml medicated shampoo (20 sources) Azole Antifungal Start: 11-26-2021 End: 02-28-2024 ketoconazole (NIZORAL) 2 % shampoo APPLY TO AFFECTED AREA(S) LATHER AND LEAVE IN PLACE FOR 5 MINUTES AND THEN RINSE OFF WITH WATER. DO THIS 2 TIMES A WEEK FOR 4 WEEKS 120 mL 11/26/2021 Active lamoTRIgine 200 mg oral tablet (20 sources) Mood Stabilizer, Anti-epileptic Agent Start: 01-29-2024 take 1 tablet by mouth in the morning, then take 1 tablet by mouth at bedtime lamoTRIgine (LaMICtal) 200 mg tablet Take 1 tablet (200 mg total) by mouth in the morning and 1 tablet (200 mg total) before bedtime. 01/29/2024 Active Start: 05-18-2023 End: 01-09-2024 take 1 tablet by mouth at bedtime lamoTRIgine (LaMICtal) 200 MG tablet Take 1 tablet by mouth at bedtime 05/18/2023 01/09/2024 Discontinued Start: 02-23-2022 End: 03-25-2024 lamoTRIgine (LaMICtal) 150 m g tablet 100mg in am 150mg at HS 02/23/2022 03/25/2024 Discontinued (Dose adjustment) Start: 11-23-2021 End: 02-28-2024 lamoTRIgine (LAMICTAL) 150 m g tablet 11/23/2021 Active Start: 10-21-2021 take 2 tablets by mo ut once daily lamoTRIgine (LAMICTAL) 25 MG tablet Take 2 tablets by mouth daily 30 tablet 3 10/21/2021 Active Start: 10-19-2021 lamoTRIgine (L AMICTAL) tablet 50 mg End: 03-25-2024 lamoTRIgine (LaMICtal) 50 MG tablet,disintegrating disintegrating tablet Dissolve 2 tablets (100 mg total) on tongue in the morning. 03/25/2024 Discontinued (Dose adjustment) lidocaine 0.04 mg/mg medicated patch (1 source) Antiarrhythmic, Amide Local Anesthetic Start: 10-20-2021 lidocaine 4 % external patch 1 patch lithium carbonate 300 mg oral tablet (20 sources) Start: 06-13-2022 lithium carbon ate 300 mg tablet 06/13/2022 Active Start: 01-17-2022 take 2 tablets by mo uth once daily lithium carbonate 300 mg tablet Take 2 tablets (600 mg total) by mouth nightly. 01/17/2022 Active Start: 01-17-2022 End: 02-28-2024 lithium carbonate 300 mg tab let 2 tablets (600 mg total). 01/17/2022 Active End: 01-09-2024 lithium ER (Eskalith) 450 MG 12 hr tablet [place] 01/09/2024 Discontinued loperamide hydrochloride 2 mg oral [...] 1 tablet by sami th twice daily. montelukast 10 mg oral tablet (8 sources) Leukotriene Receptor Antagonist Start: 06-07-2022 take 1 tablet by mouth in the morning montelukast (SINGULAIR) 10 mg tablet Take 1 tablet (10 mg total) by mouth in the morning. 30 tablet 06/07/2022 Active Nirmatrelvir&Ritona vir 300/100 (Paxlovid, 300/100,) 20 x 150 MG [...] 12/12/2023 Active nystatin 100 unt/mg topical powder (9 sources) Polyene Antifungal Start: 01-24-2024 nystatin (M YCOSTATIN) powder APPLY TO THE AFFECTED AREA(S) topically TWICE DAILY 01/24/2024 Active Start: 01-24-2024 End: 04-23-2024 nystatin (Mycostatin) 599075 UNIT/GM powder Indications: Rash , Yeast dermatitis Apply topically 2 (two) times a day 60 g 01/24/2024 02/28/2024 Discontinued omeprazole 40 mg delayed release oral capsule (12 sources) Proton Pump Inhibitor Start: 03-20-2024 take 1 capsule by mouth in the morning omeprazole (PriLOSEC) 40 mg capsule Indications: Gastroesophageal reflux disease, unspecified whether esophagitis present Take 1 capsule (40 mg total) by mouth in the morning. 30 capsule 11 03/20/2024 Active Start: 01-27-2022 take 1 capsule by mo uth in the morning omeprazole (PriLOSEC) 20 mg capsule Take 1 capsule (20 mg total) by mouth in the morning. 30 capsule 1 01/27/2022 Active ondansetron 4 mg disintegrating oral tablet (14 sources) Serotonin-3 Receptor Antagonist Start: 02-10-2024 take 1 tablet by mouth every eight hours as needed for nausea ondansetron ODT (ZOFRAN ODT) 4 mg disintegrating tablet Dissolve 1 tablet (4 mg total) on tongue every 8 (eight) hours as needed for nausea for up to 20 doses. 10 tablet 02/10/2024 Active Start: 01-22-2024 End: 01-22-2024 8 mg, INTRAVENOUS, EVERY 1 H OUR NEEDED, 2 doses, Starting on Mon01/22/24 at [...] 12-24-2020 ondansetron (ZOFRAN) injecti on 4 mg ondansetron (ZOFRAN-ODT) disintegrating tablet 4 mg (1 source) Start: 10-19-2021 ondansetron (ZOFRAN-ODT) disintegrating tablet 4 mg 12 hr orphenadrine citrate 100 mg extended release oral tablet (20 sources) Muscle Relaxant Start: 03-17-2023 End: 02-28-2024 take 1 tablet by mouth twice daily as needed, then take 1 tablet by mouth every twelve hours as needed orphenadrine (Norflex) 100 MG 12 hr tablet Take 100 mg by mouth 2 (two) times a day as needed 04/26/2023 02/28/2024 Discontinued Start: 12-12-2022 take 1 tablet by sami th every twelve hours as needed orphenadrine ER (NORFLEX) 100 mg tablet Take 1 tablet by mouth two times a day as needed. 30 tablet 5 12/12/2022 Active Comment on above: Take 1 tablet by sami th two times a day as needed. phentermine hydrochloride 37.5 mg oral tablet (20 sources) Sympathomimetic Amine Anorectic Start: 2023 End: 2024 take 1 tablet by mouth once daily before breakfast phentermine (ADIPEX-P) 37.5 mg tablet Take 1 tablet (37.5 mg total) by mouth every morning before breakfast. 01/10/2024 Active Comment on above: take 1 tablet by sami th every morning before meals microencapsulated potassium chloride 20 meq extended release oral tablet (2 sources) Start: 2024 End: 2024 take 1 tablet by mouth in the morning potassium chloride (KLOR-CON M 20) 20 MEQ CR tablet Take 1 tablet (20 mEq total) by mouth in the morning for 2 days. 2 tablet 03/26/2024 03/28/2024 Active predniSONE 50 mg oral tablet (15 sources) Start: 2023 End: 2023 take 1 tablet by mouth once daily predniSONE (Deltasone) 50 MG tablet Indications: Mild persistent asthma with (acute) exacerbation (CMS/HCC) Take 1 tablet (50 mg) by mouth Daily for 6 days 6 tablet 01/23/2024 01/29/2024 Active Start: 11-15-2023 take 6 tablets by mo uth once daily, then take 4 tablets by [...] Start: 11-15-2023 take 6 tablets by mo uth once daily, then take 4 tablets by [...] by mouth every six hours as needed for nausea and vomiting promethazine (PHENERGAN) 25 mg tablet Take 1 tablet (25 mg total) by mouth every 6 (six) hours as needed for nausea or vomiting. 15 tablet 08/10/2023 Active Start: 03-17-2023 End: 02-28-2024 take 1 tablet by mouth every six hours as needed promethazine (Phenergan) 12.5 MG tablet Take 12.5 mg by mouth every 6 (six) hours if needed 04/02/2023 02/28/2024 Discontinued Start: 06-22-2022 End: 08-31-2022 take 1 tablet by mouth every six hours as needed promethazine (PHENERGAN) 12.5 mg tablet Take 1 tablet by mouth every 6 hours as needed. 90 tablet 2 08/31/2022 Active take 25 mg rectal ro [place] every six hours as needed promethazine (PHENERGAN) 25 mg suppository Insert 1 suppository (25 mg total) into the rectum every 6 (six) hours as needed. Active Comment on above: Take 12.5 mg by mout h every 6 hours as needed. Take 1 tablet by sami th every 6 hours as needed. 72 hr scopolamine 0.0139 mg/hr transdermal system (8 sources) Anticholinergic Start: 2024 End: 2024 apply 1 dose transdermal route once daily scopolamine (TRANSDERM-SCOP) 1 mg/[address] 1 patch on the skin every third day for 10 doses. 10 patch 03/18/2024 04/15/2024 Active sulfamethoxazole 800 mg / trimethoprim 160 mg oral tablet (4 sources) Dihydrofolate Reductase Inhibitor Antibacterial, Sulfonamide Antimicrobial Start: 2023 End: 2023 take 1 tablet by mouth once in [...] g 01/15/2024 01/22/2024 Active 28 actuat tiotropium 0.12425 mg/actuat inhalation spray (20 sources) Anticholinergic Start: 04-26-2023 End: 02-28-2024 Spiriva Respimat 1.25 MCG/ACT inhaler inhale 2 puffs by mouth once daily 04/26/2023 02/28/2024 Discontinued traMADol hydrochloride 50 mg oral tablet (8 [...] tablet (20 sources) Serotonin Reuptake Inhibitor Start: 03-14-2024 take 1 tablet by mouth once daily traZODone (DESYREL) 300 MG tablet Take 1 tablet (300 mg total) by mouth nightly. 03/14/2024 Active Start: 05-10-2023 End: 02-28-2024 take 1 tablet by mouth at bedtime traZODone (Desyrel) 300 MG tablet Take 300 mg by mouth at bedtime 05/10/2023 02/28/2024 Discontinued Start: 06-13-2022 traZODone (BRIANDA YREL) 100 mg tablet 06/13/2022 Active End: 03-25-2024 take 2 tablets by mouth once daily traZODone (DESYREL) 100 mg tablet Take 2 tablets (200 mg total) by mouth nightly. 03/25/2024 Discontinued (Therapy completed) End: 01-09-2024 traZODone (Desyrel) 50 MG ta blet Take by mouth at bedtime. 01/09/2024 Discontinued ZOLMitriptan 5 mg/actuat nasal spray (20 sources) Serotonin-1b and Serotonin-1d Receptor Agonist Start: 03-17-2023 End: 01-30-2024 ZOLMitriptan (ZOMIG) 5 mg nasal solution Administer 1 spray into each nostril as needed for migraine. 01/30/2024 Active Start: 06-24-2022 ZOLMitriptan ( ZOMIG) 5 mg nasal spray Use 1 [place] in the nose as needed at onset of migraine headache. If symptoms persist or return, may repeat dose in other nostril after 2 hours. Maximum of 2 sprays per 24 hours 10 Each 2 06/24/2022 Active Start: 06-24-2022 take 1 spray(s) nasa l route every twenty-four hours as needed ZOLMitriptan (ZOMIG) 5 mg nasal spray Use 1 [place] in the nose as needed. SPRAY IN 1 NOSTRIL AT ONSET OF MIGRAINE HEADACHE. If symptoms persist or return, may repeat dose after 2 hours. Maximum: 5 mg/dose; 10 mg per 24 hours 10 Each 2 06/24/2022 Active Comment on above: Use 1 [place] in the n ose as needed. SPRAY IN 1 NOSTRIL AT ONSET OF MIGRAINE HEADACHE. If symptoms persist or return, may repeat dose after 2 hours. Maximum: 5 mg/dose; 10 mg per 24 hours Use 1 [place] in the n ose as needed at onset of migraine headache. If symptoms persist or return, may repeat dose in other nostril after 2 hours. Maximum of 2 sprays per 24 hours Completed/Discontinued Medications Medication Drug Class(es) Dates Sig (Normalized) Sig (Original) ARIPiprazole 10 mg oral tablet (8 sources) Atypical Antipsychotic End: 03-25-2024 take 1 tablet by mouth in the morning ARIPiprazole (ABILIFY) 10 mg tablet Take 1 tablet (10 mg total) by mouth in the morning. 03/25/2024 Discontinued (Dose adjustment) cariprazine 4.5 mg oral capsule (4 sources) [...] 0 10/20/2021 Discontinued (Stop Taking at Discharge) 30 actuat fluticasone furoate 0.1 mg/actuat / umeclidinium 0.0625 mg/actuat / vilanterol 0.025 mg/actuat dry powder inhaler (5 sources) Anticholinergic, Corticosteroid, beta2-Adrenergic Agonist End: 03-20-19 25 fluticasone-umeclid in-vilanter (TRELEGY ELLIPTA) 100-62.5-25 mcg blister with device daily. 03/20/2024 Discontinued 1.5 ml fremanezumab-vfrm 150 mg/ml auto-injector (12 sources) Start: 11-26-19 21 End: 03-25-19 25 fremanezumab-vfrm 225 mg/1.5 mL auto-injector Indications: Chronic mixed headache syndrome Inject 225 mg under the skin every 28 days. 1.5 mL 4 11/25/2020 03/25/2024 Discontinued (Therapy completed) Comment on above: Ajovy 225 mg/1.5 mL [...] first month only. Refrigerate. Do not shake. 12 hr guaiFENesin 600 mg extended release oral tablet (8 sources) Start: 04-22-19 End: 03-25-19 take 1 tablet by mouth once guaiFENesin (MUCINEX) 600 mg tablet extended release 12hr Take 1 tablet (600 mg total) by mouth every 12 (twelve) hours. 60 tablet 1 04/21/2022 03/25/2024 Discontinued (Therapy completed) 1 ml ketorolac tromethamine 30 mg/ml injection (20 sources) Nonsteroidal Anti-inflammatory Drug, Cyclooxygenase Inhibitor Start: 01-22-20 End: 01-22-20 30 mg, INTRAVENOUS, ONCE, 1 dose, On Mon01/22/24 at 1330, Ketorolac (Toradol) is indicated for the short-term (up to 5 days) management of moderately severe acute pain. Continuation of ketorolac (Toradol) beyond 5 days increases the risk of developing serious adverse events. Please verify the duration of therapy for ketorolac (Toradol). Start: 01-19-2024 End: 01-19-2024 30 mg, INTRAVENOUS, ONCE, 1 dose, On Mon01/19/24 at 0930, Ketorolac (Toradol) is indicated for [...] 30 mg injection (T oradol) Start: 05-14-2023 End: 02-28-2024 take 1 tablet by mouth every eight hours as needed ketorolac (Toradol) 10 MG tablet Take 1 tablet by mouth every 8 (eight) hours if needed 05/14/2023 02/28/2024 Discontinued Start: 03-16-2023 End: 11-10-2023 take 1 tablet [...] (severe migraine). Take 10 mg by mouth. 200 actuat levalbuterol 0.045 mg/actuat metered dose inhaler (8 sources) beta2-Adrenergic Agonist Start: End: take 1-2 puff(s) by inhalation every four hours as needed for wheezing levalbuterol (XOPENEX HFA) 45 mcg/actuation inhaler Inhale 1-2 puffs every 4 (four) hours as needed for wheezing. 15 g 1 01/27/2022 03/25/2024 Discontinued (Therapy completed) levETIRAcetam 250 mg oral tablet (3 sources) Start: levETIRAcetam (KEPPRA) 250 mg tablet Take 1 at bedtime. Can increase to bid after 2 weeks if needed 60 tablet 2 08/08/2022 Active Comment on above: Take 1 at bedtime. C an increase to bid after 2 weeks if needed LORazepam 2 mg oral tablet (2 sources) Benzodiazepine End: take 1 tablet by mouth twice daily LORazepam (ATIVAN) 2 MG tablet Take 2 mg by mouth 2 times daily. 0 10/20/2021 Discontinued (Stop Taking at Discharge) 100 ml magnesium sulfate 10 mg/ml injection (3 sources) Start: End: 1 g, INTRAVENOUS, at 100-200 mL/hr, Administer [...] Pediatric BMT and Hematology/Oncology, Eclampsia or Preeclampsia meclizine hydrochloride 25 mg oral tablet (8 sources) Antiemetic Start: 06-22-2022 End: 03-25-2024 take 1 tablet by mouth three times daily as needed for dizziness meclizine (ANTIVERT) 25 mg tablet Take 1 tablet (25 mg total) by mouth 3 (three) times a day as needed for dizziness. 20 tablet 06/22/2022 03/25/2024 Discontinued (Therapy completed) methocarbamol iv infusion 1,000 mg in NaCl [...] End: 02-09-2024 80 mg, Injection, Once, On ri 02/09/24 at 1130, For 1 dose Start: 02-09-2024 End: 02-09-2024 80 mg, Injection, Once, On ri 02/09/24 at 1130, For 1 dose [...] may repeat in 4 hours if needed polyethylene glycol [id number] [id number] mg powder for oral solution (1 source) [...] if given with Benadryl, Protect From Light rimegepant 75 mg disintegrating oral tablet (8 sources) Start: 10-29-2020 End: 03-25-2024 rimegepant 75 mg tablet,disintegrating Indications: Chronic mixed headache syndrome Dissolve 1 tablet on tongue daily as needed (migraines). 8 tablet 1 10/29/2020 03/25/2024 Discontinued (Therapy completed) 20 ml ropivacaine hydrochloride 5 mg/ml injection [...] oral tablet (20 sources) Start: 04-20-2022 End: 03-25-2024 vilazodone (VIIBRYD) 20 mg tablet 2 tablets (40 mg total). 04/20/2022 03/25/2024 Discontinued (Therapy completed) Start: 04-20-2022 End: 04-12-2023 vilazodone (VIIBRYD) 20 mg t ablet vitamin b12 1 mg oral tablet (8 sources) Vitamin B12 End: 03-25-2024 take 1 tablet by mouth in the morning cyanocobalamin 1000 MCG tablet Take 1 tablet (1,000 mcg total) by mouth in the morning. 03/25/2024 Discontinued (Therapy completed) Problems Active Problems Problem Classification Problem Date Documented Da te Episodic/Chronic Abdominal pain (20 sources) Unspecified abdominal pain; Translations: [Pelvic and perineal pain] Onset: 08-17-2021 Resolved: 10-10-2023 Episodic Anxiety disorders (20 sources) Anxiety disorder, unspecified; Translations: [Generalized anxiety disorder] Onset: 12-29-2021 01-24-2023 Chronic Asthma (20 sources) Unspecified asthma, uncomplicated; Translations: [Mild persistent asthma] Onset: 12-29-2021 01-24-2023 Chronic Disorders of teeth and jaw (19 sources) Toothache; Translations: [Other specified disorders of teeth and supporting structures] Onset: 01-09-2024 01-09-2024 Episodic E Codes: Fall (1 source) Unspecified fall, initial encounter; Translations: [UNSPECIFIED FALL INITIAL ENCOUNTER] Onset: 05-25-2022 Episodic Endometriosis (1 source) Endometriosis, unspecified; Translations: [ENDOMETRIOSIS UNSPECIFIED] Onset: 08-18-2021 Chronic Epilepsy; convulsions (12 sources) Seizure disorder; Translations: [Epilepsy, unspecified, not intractable, without status epilepticus] Onset: 02-18-2020 Chronic Esophageal disorders (2 sources) Gastro-esophageal reflux disease without esophagitis; Translations: [Gastroesophageal reflux disease] Onset: 06-22-2022 03-20-2024 Chronic Genitourinary symptoms and ill-defined conditions (1 source) Stress incontinence (female) (male); Translations: [STRESS INCONTINENCE FEMALE MALE] Onset: 07-14-2022 Chronic Genitourinary symptoms and ill-defined conditions (1 source) Painful micturition, unspecified; Translations: [PAINFUL MICTURITION UNSPECIFIED] Onset: 07-14-2022 Episodic Headache; including migraine (20 sources) Migraine; Translations: [Migraine, unspecified, not intractable, without status migrainosus] Onset: 08-06-2021 Chronic Headache; including migraine (1 source) Headache; Translations: [Chronic intractable headache, unspecified headache type] Episodic Headache; including migraine (4 sources) Headache; including migraine; Translations: [HEADACHE UNSPECIFIED] Onset: 06-10-2022 Heart valve disorders (1 source) Nonrheumatic mitral (valve) prolapse; Translations: [NONRHEUMATIC MITRAL VALVE PROLAPSE] Onset: 06-16-2022 Chronic Inflammatory diseases of female pelvic organs (2 sources) Female pelvic peritoneal adhesions; Translations: [Female pelvic peritoneal adhesions (postinfective)] 03-06-2024 Episodic Malaise and fatigue (19 sources) Fatigue; Translations: [Other fatigue] Onset: 01-01-2024 01-01-2024 Episodic Menstrual disorders (1 source) Dysmenorrhea, unspecified; Translations: [DYSMENORRHEA UNSPECIFIED] Onset: 10-08-2021 Chronic Miscellaneous mental health disorders (20 sources) Dissociative convulsions; Translations: [Conversion disorder with seizures or convulsions] Onset: 10-20-2021 Chronic Mood disorders (20 sources) Bipolar disorder, unspecified; Translations: [Major depressive disorder, single episode, unspecified] Onset: 10-21-2021 01-24-2023 Chronic Nausea and vomiting (20 sources) Nausea; Translations: [Nausea with vomiting, unspecified] Onset: 08-14-2021 Episodic Other aftercare (1 source) Other group home (current) drug therapy; Translations: [OTH PEDIATRIC ONCOLOGY NURSE CURRENT DRUG THERAPY] Onset: 06-22-2022 Episodic Other aftercare (17 sources) Long-term current use of drug therapy; Translations: [Other group home (current) drug therapy] Onset: 01-01-2024 01-01-2024 Episodic Other endocrine disorders (1 source) Polycystic ovarian syndrome; Translations: [POLYCYSTIC OVARIAN SYNDROME] Onset: 06-16-2022 Chronic Other endocrine disorders (20 sources) Polycystic ovary; Translations: [Polycystic ovarian syndrome] [...] Onset: 01-19-2022 Chronic Other lower respiratory disease (14 sources) Dyspnea on exertion; Translations: [Shortness of breath] Onset: 01-23-2024 01-23-2024 Episodic Other lower respiratory disease (1 source) Nodule of lung; Translations: [Solitary pulmonary nodule] 03-20-2024 Episodic Other nervous system disorders (1 source) [...] Chronic Other nutritional; endocrine; and metabolic disorders (19 sources) Severe obesity; Translations: [Class 3 severe obesity due to excess calories without serious comorbidity with body mass index (BMI) of 50.0 to 59.9 in adult] Onset: 03-21-2023 01-01-2024 Chronic Ovarian cyst (11 sources) Complex ovarian cyst; Translations: [Other ovarian cyst, unspecified side] 02-28-2024 Episodic Residual codes; unclassified (1 source) Acquired absence of other specified parts of digestive tract; Translations: [ACQ ABSENCE OTH PART DIGESTV TRACT] Onset: 06-22-2022 Episodic Residual codes; unclassified (14 sources) Edema, generalized; Translations: [Generalized edema] Onset: 01-23-2024 01-23-2024 Episodic Residual codes; unclassified (1 source) Preoperative state 03-20-2024 Episodic Unclassified (3 sources) LOW BACK PAIN, [...] organisms] Onset: 10-10-2023 Resolved: 01-09-2024 10-10-2023 Episodic Coma; stupor; and brain damage (9 sources) Somnolence; Translations: [Loss of consciousness] Onset: 08-06-2021 08-06-2021 Episodic Contraceptive and procreative management (1 source) Tubal ligation status; Translations: [TUBAL LIGATION STATUS] Onset: 10-08-2021 Episodic Epilepsy; convulsions (20 sources) Neurological finding; Translations: [Unspecified convulsions] Onset: 10-19-2021 Episodic Mood disorders (9 sources) Mood disorders; Translations: [DEPRESSION UNSPECIFIED] Onset: 06-22-2022 03-03-2022 Other gastrointestinal disorders (1 source) Diarrhea, unspecified; Translations: [DIARRHEA UNSPECIFIED] Onset: 10-08-2021 Episodic Other liver diseases (1 source) Hepatomegaly, not elsewhere classified; Translations: [HEPATOMEGALY NEC] Onset: 01-19-2022 Episodic Other lower respiratory disease (9 sources) Cough; Translations: [Acute cough] Onset: 01-27-2022 01-27-2022 Episodic Other nervous system disorders (5 sources) Other acute postprocedural pain; Translations: [OTHER ACUTE POSTPROCEDURAL PAIN] Onset: 10-05-2021 Episodic Other screening for suspected conditions (not mental disorders or infectious disease) (8 sources) Suspected disorder; Translations: [Encounter for suspected anomaly ruled out] Onset: 06-04-2019 06-04-2019 Episodic Residual codes; unclassified (1 source) Acquired absence of both cervix and uterus; Translations: [ACQUIRED ABSENCE BOTH CERVIX AND UTERUS] Onset: 01-19-2022 Episodic Residual codes; unclassified (1 source) Other specified postprocedural states; Translations: [OTH SPECIFIED POSTPROCEDURAL STATES] Onset: 10-08-2021 Episodic Residual codes; unclassified (20 sources) Persistent insomnia; Translations: [Insomnia, unspecified] Onset: 01-24-2023 01-24-2023 Episodic Spondylosis; intervertebral disc disorders; other back problems (10 sources) Cervicalgia; Translations: [Neck pain] Onset: 08-06-2021 12-09-2022 Episodic Unclassified (1 source) LOW BACK PAIN, UNSPECIFIED; Translations: [LOW BACK PAIN, UNSPECIFIED] Onset: 01-14-2022 Unclassified (1 source) Patient encounter status 03-19-2024 Urinary tract infections (1 source) Urinary tract infection, site not specified; Translations: [UTI SITE NOT SPECIFIED] Onset: 08-18-2021 Episodic Results Test Name Value Interpretation Reference Range Facility ECG 12 leadon 03-26-2024 TRACEMASTERVUE [facility] ABO Rh Repeaton 03-25-2024 ABO O [facility] Rh Nom (Bld) Positive [facility] Type and screen(includes ind irect ady)on 03-25-2024 ABO O [facility] Rh Nom (Bld) Positive [facility] Respiratory allergy panelon 03-21-2024 A. alternata IgE Qn (S) kU/L NINF - 0.10 kU/L [facility] Comment on above: Class 0: Normal A. fumigatus IgE Qn (S) kU/L NINF - 0.10 kU/L [facility] Comment on above: Class 0: Normal Palestinian house dust mite IgE Qn (S) kU/L NINF - 0.10 kU/L [facility] Comment on above: Class 0: Normal [place] grass IgE Qn (S) 0.95 kU/L High NINF - 0.10 kU/L [facility] Comment on above: Class 2:Moderate lev el of Allergy, indicative of stronger ongoing sensitization Boxelder IgE Qn (S) 0.15 kU/L High NINF - 0 .10 kU/L [facility] Comment on above: Class 0/1: Low level of Allergy, ongoing sensitization C. herbarum IgE Qn (S) kU/L NINF - 0.10 kU/L [facility] Comment on above: Class 0: Normal [place] Pollen IgE Qn (S) kU/L NINF - 0.10 kU/L [facility] Comment on above: Class 0: Normal Cat dander IgE Qn (S) 6.53 kU/L High NINF - 0.10 kU/L [facility] Comment on above: Class 3:High level o f Allergy, indicative of high level sensitization Cocklebur IgE Qn (S) 0.14 kU/L High NINF - 0.10 kU/L [facility] Comment on above: Class 0/1: Low level of Allergy, ongoing sensitization Cockroach IgE Qn (S) kU/L NINF - 0.10 kU/L [facility] Comment on above: Class 0: Normal Common Pigweed IgE Qn (S) kU/L NINF - 0.10 kU/L [facility] Comment on above: Class 0: Normal Common Ragweed IgE Qn (S) 0.37 kU/L High NINF - 0.10 kU/L [facility] Comment on above: Class 1:Low level of Allergy, indicative of ongoing sensitization Miner IgE Qn (S) 0.25 kU/L High NINF - 0.10 kU/L [facility] Comment on above: Class 0/1: Low level of Allergy, ongoing sensitization Dog dander IgE Qn (S) 52.5 kU/L [facility] Comment on above: Class 5:Very High le kyara of Allergy,indicative of very high level sensitization house dust mite IgE Qn (S) kU/L NINF - 0.10 kU/L [facility] Comment on above: Class 0: Normal Goosefoot IgE Qn (S) kU/L NINF - 0.10 kU/L [facility] Comment on above: Class 0: Normal IgE Qn 602 [IU]/L High [facility] Interpretation and review of laboratory results Abnormal [facility] Ike grass IgE Qn (S) 0.96 kU/L High NINF - 0.10 kU/L [facility] Comment on above: Class 2:Moderate lev el of Allergy, indicative of stronger ongoing sensitization [place] blue grass IgE Qn (S) 2.55 kU/L High NINF - 0.10 kU/L [facility] Comment on above: Class 2:Moderate lev el of Allergy, indicative of stronger ongoing sensitization [place] IgE Qn (S) kU/L NINF - 0.10 kU/L [facility] Comment on above: Class 0: Normal Marte Elder IgE Qn (S) kU/L NINF - 0.10 kU/L [facility] Comment on above: Class 0: Normal [place] Juniper IgE Qn (S) kU/L NINF - 0.10 kU/L [facility] Comment on above: Class 0: Normal Mouse urine proteins IgE Qn (S) 0.34 kU/L High NINF - 0.10 kU/L [facility] Comment on above: Class 0/1: Low level of Allergy, ongoing sensitization Mugwort IgE Qn (S) kU/L NINF - 0. 10 kU/L [facility] Comment on above: Class 0: Normal Nettle IgE Qn (S) kU/L NINF - 0.1 0 kU/L [facility] Comment on above: Class 0: Normal P. notatum IgE Qn (S) kU/L NINF - 0.10 kU/L [facility] Comment on above: Class 0: Normal Pecan or [place] Tree IgE Qn (S) 0.17 kU/L High NINF - 0.10 kU/L [facility] Comment on above: Class 0/1: Low level of Allergy, ongoing sensitization Saltwort IgE Qn (S) 0.38 kU/L High NINF - 0 .10 kU/L [facility] Comment on above: Class 1:Low level of Allergy, indicative of ongoing sensitization Sheep Neche IgE Qn (S) kU/L NINF - 0.10 kU/L [facility] Comment on above: Class 0: Normal Silver Birch IgE Qn (S) kU/L NINF - 0.10 kU/L [facility] Comment on above: Class 0: Normal Johan IgE Qn (S) 1.92 kU/L High NINF - 0. 10 kU/L [facility] Comment on above: Class 2:Moderate lev el of Allergy, indicative of stronger ongoing sensitization [place] IgE Qn (S) kU/L NINF - 0.10 kU/L [facility] Comment on above: Class 0: Normal White Elm IgE Qn (S) kU/L NINF - 0.10 kU/L [facility] Comment on above: Class 0: Normal White mulberry IgE Qn (S) kU/L NINF - 0.10 kU/L [facility] Comment on above: Class 0: Normal Radnor IgE Qn (S) kU/L NINF - 0.10 kU/L [facility] Comment on above: Class 0: Normal [facility] Pulmonary function test Spir ometry (Flow Volume Loop)Ordered By: Dinorah Cummins on 03-20-2024 [facility] CA 125on 03-18-2024 Cancer Ag 125 Qn 7 [arb'U]/mL 0 - 35 U/mL [facility] Comment on above: The method used for this test is Olga [employer] DXI chemiluminescent immunoassay. Values obtained by different assay methods cannot be used interchangeably. CBC auto differentialon 02-21 Basophils (Bld) [#/Vol] 0 10*3/uL [facility] Basophils/100 WBC (Bld) 0.6 % [facility] Eosinophils (Bld) [#/Vol] 0.5 10*3/uL High [facility] Eosinophils/100 WBC (Bld) 8.4 % [facility] Erythrocyte distribution width (RBC) [Ratio] 13.6 % 11.5 - 15.0 % [facility] Hematocrit (Bld) [Volume fraction] 40.6 % 35 - 47 % [facility] Hemoglobin (Bld) [Mass/Vol] 13.7 g/dL 11.7 - 15.5 g/dL [facility] Interpretation and review of laboratory results Abnormal [facility] Lymphocytes (Bld) [#/Vol] 1.3 10*3/uL [facility] Lymphocytes/100 WBC (Bld) 23.5 % [facility] MCH (RBC) [Entitic mass] 29.2 pg 27 - 34 pg [facility] MCHC (RBC) [Mass/Vol] 33.7 g/dL 32 - 36 g/dL [facility] MCV (RBC) [Entitic vol] 87 fL 80 - 100 fL [facility] Monocytes (Bld) [#/Vol] 0.3 10*3/uL [facility] Monocytes/100 WBC (Bld) 5.3 % [facility] Neutrophils (Bld) [#/Vol] 3.5 10*3/uL [facility] Neutrophils/100 WBC (Bld) 62.2 % [facility] Platelet mean volume (Bld) [Entitic vol] 8.9 fL 7 - 12 fL [facility] Platelets (Bld) [#/Vol] 233 10*3/uL [facility] RBC (Bld) [#/Vol] 4.67 10*6/uL [facility] WBC corrected for nucl RBC Auto (Bld) [#/Vol] 5.7 [facility] CEAon 03-18-2024 Carcinoembryonic Ag [Mass/Vol] 0.9 ng/mL 0.0 - 3.0 ng/mL [facility] Comment on above: 0.0-3.0 ng/mL FOR NON SMOKERS 0.0-5.0 ng/mL FOR SMOKERS The method used for this test is [employer] DXI chemiluminescent immunoassay. Values obtained by different assay methods cannot be used interchangeably. Cancer Ag 125 Qnon 5 [facility] Cancer Ag 19-9 Qnon 03-18-19 25 [facility] Cancer antigen 19-9on 2024 Cancer Ag 19-9 Qn U/mL 0.0 - 35.0 U/mL [facility] Comment on above: The method used for this test is [employer] [place] DXI chemiluminescent immunoassay. Values obtained by different assay methods cannot be used interchangeably. Carcinoembryonic Ag [Mass/Vo l]on 03-18-2024 [facility] Comprehensive metabolic pane srikanth 03-18-2024 Albumin [Mass/Vol] 4.3 g/dL 3.2 - 5.3 g/dL [facility] ALP [Catalytic activity/Vol] 51 U/L 39 - 130 U/L [facility] ALT No additional P-5'-P [Catalytic activity/Vol] 21 U/L 0 - 31 U/L [facility] Anion gap [Moles/Vol] 10 mmol/L 5 - 15 mmol/L [facility] AST [Catalytic activity/Vol] 15 U/L 0 - 41 U/L [facility] Bilirubin [Mass/Vol] 0.5 mg/dL 0.3 - 1 .2 mg/dL [facility] Calcium [Mass/Vol] 9.2 mg/dL 8.5 - 10. 5 mg/dL [facility] Chloride [Moles/Vol] 104 mmol/L 98 - 10 9 mmol/L [facility] [facility] CO2 [Moles/Vol] 27 mmol/L 22 - 32 mmol/L [facility] Creatinine [Mass/Vol] 0.62 mg/dL 0.40 - 1.00 mg/dL [facility] Comment on above: METHOD TRACEABLE TO [facility] STANDARD eGFR (CKD-EPI)non-race dependent - PINF [facility] Comment on above: Reported eGFR is based on the CKD-EPI 2020 equation that does not use a race coefficient. Glucose [Mass/Vol] 88 mg/dL 65 - 99 mg/dL [facility] Interpretation and review of laboratory results Abnormal [facility] Potassium [Moles/Vol] 3.4 mmol/L Low 3.5 - 5.0 mmol/L [facility] Protein [Mass/Vol] 6.6 g/dL 6.0 - 8.0 g/dL [facility] Sodium [Moles/Vol] 141 mmol/L 134 - 146 mmol/L [facility] Urea nitrogen [Mass/Vol] 12 mg/dL 5 - 23 mg/dL [facility] CNPNon 02-22-2024 CNPN Telephone ([facility]) ---- CONI NICHOLSON ([id number]) 1995 F Date Time Provider Department 02/22/24 LOGAN BARTH [facility] During your visit today, we recorded the following information about you: Jannette Mcleod RN 02/22/2024 12:04 PM Signed Prior Authorization submitted via [employer] on 02/22/2024: Insurance: [place] Medicaid Medication: Zolmitriptan Chong Code: [id number] Awaiting Response Jannette Mcleod RN 03/14/2024 2:23 PM Signed Allergies As of Date: 02/22/2024 Noted Allergy Reaction DIHYDROERGOTAMINE 07/27/2022 5 - [...] Date Reviewed: 01/22/2024 Reviewed by: Raiza Morales APRN.DIET COUNSELOR - Fully Assessed Reason for Visit: Insurance Authorization [[id number]] Cmt: Zolmitriptan Prescriptions as of 03/14/2024 - ZOLMitriptan (ZOMIG) 5 mg nasal spray Use 1 [place] in the nose as needed at onset [...] mg tablet Facility-Administer ed Medications as of 03/14/2024 - onabotulinum toxin type A 200 Units injection (BOTOX) Problem List As Of Date 02/22/2024 Noted Resolved Seizure-like activity (HCC) [R56.9] 04/01/2022 Psychogenic nonepileptic seizure [F44.5] 10/20/2021 Intractable chronic migraine without aura and w*06/24/2022 Chronic migraine without aura, with intractable* 024 Intractable chronic migraine without aura and w*09/19/2023 Encounter Status:Closed by JANNETTE MCLEOD on 02/22/24 Normal [facility] Pathology Request for Lab Co rpon 02-16-2024 Pathology Request for Lab Lilly Normal [facility] Comment on above: Order Comment: PATHO LOGY GI SPECIMEN Result Comment: See report. Scanned copy available in EMR. PERFORMED BY: [place] [address] PATHOLOGIST CLARIFYING PLANT OPERATOR JACE JOYCE M.D. Performed By: #### P ATH TO [facility] #### [address] Veronica 01-29-2024 CNPN Telephone ([facility]) ---- CONI NICHOLSON ([id number]) 1995 F Date Time Provider Department 01/29/24 LOGAN BARTH [facility] During your visit today, we recorded the following information about you: Kelsey Patel 01/29/2024 10:53 AM Signed Name of Caller: nicky Relationship to patient: pharmacy Last visit in this department: 09/19/2023 Reason for Call: Other : need to verify quantity on zolmitriptan. Callback number: [phone] Amy Shrestha MA 01/29/2024 12:06 PM Signed Per last Rx on 11/10/2023: Disp Refills Start End ZOLMitriptan (ZOMIG) 5 mg nasal spray 10 Each 5 11/10/2023 -- Sig: Use 1 [place] in the nose as needed at onset [...] Dispense 12 pls. I rewrote the rx. GABBI Johnston Koli, APRN.CNP 01/30/2024 2:59 PM Signed The following approved medication requests have been transmitted electronically. Requested Prescriptions Signed Prescriptions Disp Refills ZOLMitriptan (ZOMIG) 5 mg nasal spray 12 Each 5 Sig: Use 1 [place] in the nose as needed at onset [...] Date Reviewed: 01/22/2024 Reviewed by: Raiza Morales APRN.DIET COUNSELOR - Fully Assessed Order(s):ZOLMitript an (ZOMIG) 5 mg nasal sprayUse 1 [place] in the nose as needed at onset of migraine headache. If symptoms persist or return, may repeat dose in other nostril after 2 hours. Maximum of 2 sprays per 24 hoursDisp: 12 EachRfl: 5 Prescriptions as of 02/01/2024 - ZOLMitriptan (ZOMIG) 5 mg nasal spray Use 1 [place] in the nose as needed at onset [...] 5 01/30/2024 Route: NASAL Sig: Use 1 [place] in the nose as needed at onset of migraine headache. If symptoms persist or return, may repeat dose in other nostril after 2 hours. Maximum of 2 sprays per 24 hours Medications Discontinued During This Encounter Prescriptions - ZOLMitriptan (ZOMIG) 5 mg nasal spray (Discontinued) Use 1 [place] in the nose as needed at onset of migraine headache. If symptoms persist or return, may repeat dose in other nostril after 2 hours. Maximum of 2 sprays per 24 hours Encounter Status:Closed by KELSEY PATEL on 01/30/[address] [facility] CNOVon 01-22-2024 CNOV Office Visit ([facility]) ---- CONI NICHOLSON ([id number]) 1995 F Date Time Provider Department 01/22/24 2:30 PM RAIZA MORALES [facility] During your visit today, we recorded the following information about you: Raiza Morales APRN.DIET COUNSELOR 01/22/2024 1:57 PM Signed Headache Center Infusion [...] Lymph 1.00 - 4.00 k/uL 0.84 Abs [place] <0.87 k/uL 0.06 Abs Eosin <0.46 k/uL [...] ZOLMitriptan (ZOMIG) 5 mg nasal sprayUse 1 [place] in the nose as needed at onset [...] and clear, coherent, and relevant. Short and group home memory, cognition and general fund of [...] IV fluids (more content not included)... Normal [facility] CNOVon 09-19-2023 CNOV Office Visit ([facility]) ---- CONI NICHOLSON ([id number]) 1995 F Date Time Provider Department 09/19/23 2:30 PM LOGAN BARTH [facility] During your visit today, we recorded the following information about you: Temperature Pulse Blood pressure Weight 99.1 degrees 80/minute 115/81 118.8 kg Height 1.584 m Logan Barth APRN.DIET COUNSELOR 09/19/2023 3:12 PM Signed Outpatient [facility] [...] XL, Qudexy) Anti-Depressant and Antipsychotic Amitriptyline (Elavil) [place] (Eskalith, Lithobid) Nortriptyline (Pamelor, Aventyl) Anti-Migraine Dihydroergotamine [...] ZOLMitriptan (ZOMIG) 5 mg nasal sprayUse 1 [place] in the nose as needed at onset [...] these with the patient: yes Logan Barth APRN.DIET COUNSELOR HEADACHE SCORES: 03/22/2023 07/10/2023 09/19/2023 Headache Questions ER visits since last office visit: 6 8 6 Hospital stays since last office visit 2 1 Limited ADL (more content not included)... Normal [facility] CNOVon 08-18-2023 CNOV Office Visit ([facility]) ---- CONI NICHOLSON ([id number]) 1995 F Date Time Provider Department 08/18/23 9:30 AM CURTIS LEPE [facility] During your visit today, we recorded [...] 1 month Curtis Lepe PA-C Headache Section [facility] August 18, 2023 Curtis Lepe PA-C 08/18/2023 2:39 PM Signed You received a greater occipital nerve block (GONB) today You may feel sore tomorrow at the site of the injection. You may use heat or ice for discomfort and gentle stretching. This should resolve in 24-36 hours. Greater Occipital Nerve Block (GONB) Article in [employer] Journal By: Molina Barraza MD Many patients with chronic headache report that their (more content not included)... 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 Suzan Driver APRN.[facility] Headache Section [facility] Suzan Driver APRN.DIET COUNSELOR 04/14/2023 10:49 AM Signed Follow up/ discharge plan: f/u in 3 months Start aimovig this Aimovig Information Aimovig is a CGRP monoclonal antibody (MAB). CGRP is a substance in the brain that plays a chong role in causing migraine. Aimovig was specifically developed t (more content not included)... Normal [facility]-20[facility] CONI NICHOLSON ([id number]) 1995 F Date Time Provider Department 04/13/23 LOGAN BARTH [facility] During your visit today, we recorded the following information about you: Johana Cancino RN 04/13/2023 9:30 AM Signed Patient is currently receiving infusions for headache. She is interested in learning about reboot program. Please schedule for evaluation. PRATIBHA Blisson, Lelia 04/17/2023 12:44 PM Signed Patient is schedule.d [...] headache. She is interested in learning about [employer] program. Please schedule patient for evaluation if [...] (ZOMIG) 5 mg nasal spray Use 1 [place] in the nose as needed at onset [...] Encounter Status:Closed by JOHANA CANCINO on 04/13/[address] [facility] CNOVon 04-12-2023 CNOV Office Visit ([facility]) ---- CONI NICHOLSON ([id number]) 1995 F Date Time Provider Department 04/12/23 1:30 PM SUZAN DRIVER [facility] During your visit today, we recorded the following information about you: Suzan Driver APRN.[facility] 04/12/2023 11:52 AM Signed General Headache Education [...] much light. These can be obtained at [employer] or [employer]: see list below. 2. Limit use of acute treatments (uqqe-nvq-jyzvilx medications, triptans, etc.) to no more than [...] and quiet environment. Relax and reduce stress. Mhmyfea7Xsbwt is a free catrina that can instruct you on some simple relaxtion and breathing techniques. Http://[employer] is a free website that provides teaching [...] epilepsy i (more content not included)... Normal [facility] CNPWendy 03-27-2023 CNPN Telephone ([facility]) ---- CONI NICHOLSON ([id number]) 1995 F Date Time Provider Department 03/27/23 ANGELY COTTON [facility] During your visit today, we recorded the following information about you: Angely Cotton RN 03/27/2023 1:05 PM S[address] [facility] received prescription(s) for Aimovig 70MG/ML auto-injectors . Benefits investigation was conducted, indicating that a prior authorization is required. PA was initiated and pending review through [employer]. All pertinent clinical information was submitted to insurance. [facility] Chong: [id number] Ordering Provider: Logan Barth APRN.CNP Murtaugh, Alisha, RN [facility] P: , F: Angely Cotton RN 04/03/2023 12:43 PM Signed Ambulatory Pharmacy Prior Authorization Note Provider Intervention Required?: No- Pharmacy completed on your behalf. Rx Plan: Medicaid MCO ([facility]) Drug: Aimovig 70MG/ML auto-injectors Cover My Meds Chong: [id number] Determination: Approved Prior Authorization/Case #: n/a Prior [...] refills. Prescriptions will now be processed through [facility] for determination of next steps. For questions relating to this submission, please contact [facility] at [phone] Allergies As of Date: 03/27/2023 Noted Allergy [...] Date Reviewed: 03/23/2023 Reviewed by: Logan Barth APRN.DIET COUNSELOR - Fully Assessed Reason for Visit: Insurance Authorization [[id number]] Cmt: Aimovig 70MG/ML auto-injectors Prescriptions as of 04/03/2023 - Phentermine HCl 37.5 mg tablet take 1 tablet by mouth every morning before meals - erenumab-aooe (AIMOVIG AUTOINJECTOR) 70 mg/mL auto-injector Inject 1 mL subcutaneously once every month. Do not shake. - ZOLMitriptan (ZOMIG) 5 mg nasal spray Use 1 [place] in the nose as needed at onset [...] Status:Closed by ANGELY COTTON on 04/03/23 Normal [facility] BLOOD GASES BTYon 06-20-2022 02 MODE ROOM AIR Normal [facility] Comment on above: Performed By: #### B MP #### [facility] [address] [address] [address] Ibis BETH TEST Positive Normal [facility] Comment on above: Performed By: #### B MP #### [facility] [address] [address] [address] Ibis Jimenez Base excess Calc (Bld) [Moles/Vol] -1.6000 mmol/L Normal -2.0-2.0 [facility] Comment on above: Performed By: #### B MP #### [facility] [address] [address] [address] Ibis Jimenez BIPAP PRESSURE Normal [facility] Comment on above: Performed By: #### B MP #### [facility] [address] [address] [address] Ibis Jimenez CPAP [facility] Comment on above: Performed By: #### B MP #### [facility] [address] [address] [address] Ibis Jimenez FIO2 [facility] Comment on above: Performed By: #### B MP #### [facility] [address] [place] [address] Dr. Ibis Jimenez HCO3 (Bld) [Moles/Vol] 23.8 mmol/L Normal 22.0-26.0 [facility] Comment on above: Performed By: #### B MP #### [facility] [address] [address] [address] Ibis Jimenez LPM [facility] Comment on above: Performed By: #### B MP #### [facility] [address] [place] [address] Dr. Ibis Jimenez MINUTE VOLUME Normal [facility] Comment on above: Performed By: #### B MP #### [facility] [address] [place] [address] Dr. Ibis Jimenez Oxygen (Bld) [Partial pressure] 75.5 mm[Hg] Critically low 80.0-100.0 [facility] Comment on above: Performed By: #### B MP #### [facility] [address] [place] [address] Dr. Ibis Jimenez Oxygen saturation in Blood 95.8 % Normal 95.0-100.0 [facility] Comment on above: Performed By: #### B MP #### [facility] [address] [place] [address] Dr. Ibis Jimenez PCO2 41.8 mmHg Normal 35.0-45.0 [facility] Comment on above: Performed By: #### B MP #### [facility] [address] [place] [address] Dr. Ibis Jimenez [facility] Comment on above: Performed By: #### B MP #### [facility] [address] [address] [address] Ibis Jimenez pH (Bld) 7.363 [pH] Normal 7.350-7.450 [facility] Comment on above: Performed By: #### B MP #### [facility] [address] [address] [address] Ibis Jimenez [facility] Comment on above: Performed By: #### B MP #### [facility] [address] [place] [address] Dr. Ibis Jimenez [facility] Comment on above: Performed By: #### B MP #### [facility] [address] [place] [address] Dr. Ibis Jimenez PUNCTURE SITE LR [facility] Comment on above: Performed By: #### B MP #### [facility] [address] [place] [address] Dr. Ibis Jimenez [facility] Comment on above: Performed By: #### B MP #### [facility] [address] [place] [address] Dr. Ibis Jimenez VENT MODE [facility] Comment on above: Performed By: #### B MP #### [facility] [address] [place] [address] Dr. Ibis Jimenez [facility] Comment on above: Performed By: #### B MP #### [facility] [address] [place] [address] Dr. Ibis Jimenez CBC AUTO DIFFon 06-20-2022 BASO # 0.0 103/ul Normal 0.0-0.1 [facility] Comment on above: Performed By: #### A CET, SALYC #### [facility] [address] [place] [address] Dr. Ibis Jimenez Basophils/100 WBC (Bld) 0.5 % Normal 0.2-2.0 [facility] Comment on above: Performed By: #### A CET, SALYC #### [facility] [address] [place] [address] Dr. Ibis Jimenez EO # 0.3 103/ul Normal 0.0-0.7 [facility] Comment on above: Performed By: #### A CET, SALYC #### [facility] [address] [place] [address] Dr. Ibis Jimenez Eosinophils/100 WBC (Bld) 4.2 % Normal 0.9-7.0 [facility] Comment on above: Performed By: #### A CET, SALYC #### [facility] [address] [place] [address] Dr. Ibis Jimenez Erythrocyte distribution width (RBC) [Ratio] 13.2 % Normal 11.0-15.0 [facility] Comment on above: Performed By: #### A CET, SALYC #### [facility] [address] [place] [address] Dr. Ibis Jimenez Hematocrit (Bld) [Volume fraction] 36.5 % Normal 36.0-48.0 [facility] Comment on above: Performed By: #### A CET, SALYC #### [facility] [address] [place] [address] Dr. Ibis Jimenez Hemoglobin (Bld) [Mass/Vol] 11.7 g/dL Critically low 12.0-16.0 [facility] Comment on above: Performed By: #### A CET, SALYC #### [facility] [address] [place] [address] Dr. Ibis Jimenez IG # 0.05 10e3/ul Critically high 0.00-0.03 [facility] Comment on above: Performed By: #### A CET, SALYC #### [facility] [address] [place] [address] Dr. Ibis Jimenez IG % 0.8 % Critically high 0.0-0.5 [facility] Comment on above: Performed By: #### A CET, SALYC #### [facility] [address] [address] [address] Ibis Jimenez LYMPH # 1.7 103/ul Normal 1.2-3.8 [facility] Comment on above: Performed By: #### A CET, SALYC #### [facility] [address] [address] [address] Ibis Jimenez Lymphocytes/100 WBC (Bld) 26.9 % Normal 20.5-60.0 [facility] Comment on above: Performed By: #### A CET, SALYC #### [facility] [address] [place] [address] Dr. Ibis Jimenez MANUAL DIFF REQ NO Normal [facility] Comment on above: Performed By: #### A CET, SALYC #### [facility] [address] [place] [address] Dr. Ibis Jimenez MCH (RBC) [Entitic mass] 28.7 pg Normal 26.7-34.0 [facility] Comment on above: Performed By: #### A CET, SALYC #### [facility] [address] [place] [address] Dr. Ibis Jimenez MCHC (RBC) [Mass/Vol] 32.1 g/dL Normal 29.9-35.2 [facility] Comment on above: Performed By: #### A CET, SALYC #### [facility] [address] [place] [address] Dr. Ibis Jimenez MCV (RBC) [Entitic vol] 89.7 fL Normal 81.0-99.0 [facility] Comment on above: Performed By: #### A CET, SALYC #### [facility] [address] [place] [address] Dr. Ibis Jimenez MONO # 0.6 103/ul Normal 0.3-0.8 [facility] Comment on above: Performed By: #### A CET, SALYC #### [facility] [address] [place] [address] Dr. Ibis Jimenez Monocytes/100 WBC (Bld) 8.9 % Normal 1.7-12.0 [facility] Comment on above: Performed By: #### A CET, SALYC #### [facility] [address] [place] [address] Dr. Ibis Jimenez NEUT # 3.8 103/ul Normal 1.4-6.5 [facility] Comment on above: Performed By: #### A CET, SALYC #### [facility] [address] [place] [address] Dr. Ibis Jimenez Neutrophils/100 WBC (Bld) 58.7 % Normal 43.0-75.0 [facility] Comment on above: Performed By: #### A CET, SALYC #### [facility] [address] [place] [address] Dr. Ibis Jimenez Platelet mean volume (Bld) [Entitic vol] 9.3 fL Critically low 9.5-13.5 [facility] Comment on above: Performed By: #### A CET, SALYC #### [facility] [address] [place] [address] Dr. Ibis Jimenez PLT 188 103/ul Normal 150-450 [facility] Comment on above: Performed By: #### A CET, SALYC #### [facility] [address] [place] [address] Dr. Ibis Jimenez RBC 4.07 106/ul Critically low 4.20-5.40 [facility] Comment on above: Performed By: #### A CET, SALYC #### [facility] [address] [place] [address] Dr. Ibis Jimenez WBC 6.4 103/ul Normal 4.0-11.0 [facility] Comment on above: Performed By: #### A CET, SALYC #### [facility] [address] [place] [address] Dr. Ibis Jimenez DRUG SCREEN RAPID (URINE)on 06-20-2022 AMP Negative Normal NEGATIVE [facility] Comment on above: Performed By: #### B MP #### [facility] [address] [place] [address] Dr. Ibis Jimenez BAR Positive Abnormal NEGATIVE [facility] Comment on above: Performed By: #### B MP #### [facility] [address] [place] [address] Dr. Ibis Jimenez BUP Negative Normal NEGATIVE [facility] Comment on above: Performed By: #### B MP #### [facility] [address] [place] [address] Dr. Ibis Jimenez BZO Positive Abnormal NEGATIVE [facility] Comment on above: Performed By: #### B MP #### [facility] [address] [place] [address] Dr. Ibis Jimenez SEMAJ Negative Normal NEGATIVE [facility] Comment on above: Performed By: #### B MP #### [facility] [address] [place] [address] Dr. Ibis Jimenez CUT-OFFS SEE BELOW Normal [facility] Comment on above: Result Comment: AMP [...] ng/mL Performed By: #### B MP #### [facility] [address] [place] [address] Dr. Ibis Jimenez DRUG CUT HEADER DRUG CLASS TEST SYSTEM CUT-OFF CONCENTRATIONS ARE FOLLOWS: Normal [facility] Comment on above: Performed By: #### B MP #### [facility] [address] [place] [address] Dr. Ibis Jimenez mAMP Negative Normal NEGATIVE [facility] Comment on above: Performed By: #### B MP #### [facility] [address] [place] [address] Dr. Ibis Jimenez MTD Negative Normal NEGATIVE [facility] Comment on above: Performed By: #### B MP #### [facility] [address] [place] [address] Dr. Ibis Jimenez OPI Negative Normal NEGATIVE [facility] Comment on above: Performed By: #### B MP #### [facility] [address] [place] [address] Dr. Ibis Jimenez OXY Negative Normal NEGATIVE [facility] Comment on above: Performed By: #### B MP #### [facility] [address] [place] [address] Dr. Ibis Jimenez PCP Negative Normal NEGATIVE [facility] Comment on above: Performed By: #### B MP #### [facility] [address] [place] [address] Dr. Ibis Jimenez PPX Negative Normal NEGATIVE [facility] Comment on above: Performed By: #### B MP #### [facility] [address] [place] [address] Dr. Ibis Jimenez TCA Positive Abnormal NEGATIVE [facility] Comment on above: Performed By: #### B MP #### [facility] [address] [place] [address] Dr. Ibis Jimenez THC Positive Abnormal NEGATIVE [facility] Comment on above: Performed By: #### B MP #### [facility] [address] [place] [address] Dr. Ibis Jimenez ER URINE PROFILEon 3 Bilirubin Ql (U) Negative Normal NEGATIVE [facility] Comment on above: Performed By: #### A CET, SALYC #### [facility] [address] [place] [address] Dr. Ibis Jimenez Clarity (U) CLEAR Normal CLEAR [facility] Comment on above: Performed By: #### A CET, SALYC #### [facility] [address] [place] [address] Dr. Ibis Jimenez Color (U) YELLOW Normal YELLOW [facility] Comment on above: Performed By: #### A CET, SALYC #### [facility] [address] [place] [address] Dr. Ibis RODRIGUEZ A micrscopic examination will be performed if indicated. Normal [facility] Comment on above: Performed By: #### A CET, SALYC #### [facility] [address] [place] [address] Dr. Ibis Jimenez Glucose Ql (U) Negative Normal NEGATIVE [facility] Comment on above: Performed By: #### A CET, SALYC #### [facility] [address] [place] [address] Dr. Ibis Jimenez Hemoglobin Ql (U) Negative Normal NEGATIVE [facility] Comment on above: Performed By: #### A CET, SALYC #### [facility] [address] [place] [address] Dr. Ibis Jimenez Ketones Ql (U) Negative Normal NEGATIVE [facility] Comment on above: Performed By: #### A CET, SALYC #### [facility] [address] [place] [address] Dr. Ibis Jimenez LEUKOCYTES Negative Normal NEGATIVE [facility] Comment on above: Performed By: #### A CET, SALYC #### [facility] [address] [place] [address] Dr. Ibis Jimenez Nitrite Ql (U) Negative Normal NEGATIVE [facility] Comment on above: Performed By: #### A CET, SALYC #### [facility] [address] [place] [address] Dr. Ibis Jimenez pH (U) 5.0 [pH] Normal 5-9 [facility] Comment on above: Performed By: #### A CET, SALYC #### [facility] [address] [place] [address] Dr. Ibis Jimenez SPEC GRAVITY >=1.030 Abnormal 1.005-<=1.02 5 [facility] Comment on above: Performed By: #### A CET, SALYC #### [facility] [address] [place] [address] Dr. Ibis Jimenez UA PROTEIN Negative Normal NEGATIVE/ TRACE [facility] Comment on above: Performed By: #### A CET, SALYC #### [facility] [address] [place] [address] Dr. Ibis Jimenez UR MICRO IND NOT INDICATED Normal [facility] Comment on above: Performed By: #### A CET, SALYC #### [facility] [address] [address] [address] Ibis Jimenez Urobilinogen Qn (U) 0.2 {Dinorah'U}/dL Normal 0.2 - 1. 0 [facility] Comment on above: Performed By: #### A CET, SALYC #### [facility] [address] [place] [address] Dr. Ibis Jimenez PROF CHEM 8 (BAS METB)on Anion gap [Moles/Vol] 13.1 mmol/L Normal [facility] Comment on above: Performed By: #### M DAVID #### [facility] [address] [place] [address] Dr. Ibis Jimenez Calcium [Mass/Vol] 8.3 mg/dL Critically low 8.5-10.1 [facility] Comment on above: Performed By: #### M DAVID #### [facility] [address] [place] [address] Dr. Ibis Jimenez Chloride [Moles/Vol] 109 mmol/L Critically high 98-107 [facility] Comment on above: Performed By: #### M DAVID #### [facility] [address] [place] [address] Dr. Ibis Jimenez CO2 [Moles/Vol] 25.7 mmol/L Normal 21.0-32.0 [facility] Comment on above: Performed By: #### M DAVID #### [facility] [address] [place] [address] Dr. Ibis Jimenez Creatinine [Mass/Vol] 0.82 mg/dL Normal 0.55-1.02 [facility] Comment on above: Performed By: #### M DAVID #### [facility] [address] [place] [address] Dr. Ibis Jimenez EGFR-AF SWAZI >60 Normal >=60 [facility] Comment on above: Performed By: #### M DAVID #### [facility] [address] [place] [address] Dr. Ibis Jimenez EGFR-NON AF SWAZI >60 Normal >=60 [facility] Comment on above: Performed By: #### M DAVID #### [facility] [address] [address] [address] Ibis Jimenez Glucose [Mass/Vol] 95 mg/dL Normal 74-106 [facility] Comment on above: Performed By: #### M DAVID #### [facility] [address] [address] [address] Ibis Jimenez Potassium [Moles/Vol] 3.8 mmol/L Normal 3.5-5.1 [facility] Comment on above: Performed By: #### M DAVID #### [facility] [address] [address] [address] Ibis Jimenez Sodium [Moles/Vol] 144 mmol/L Normal 136-145 [facility] Comment on above: Performed By: #### M DAVID #### [facility] [address] [address] [address] Ibis Jimenez Urea nitrogen [Mass/Vol] 16.0 mg/dL Normal 7.0-18.0 [facility] Comment on above: Performed By: #### M DAVID #### [facility] [address] [address] [address] Ibis Jimenez Urea nitrogen/Creatinine [Mass ratio] 19.5 mg/mg Normal [facility] Comment on above: Performed By: #### M DAVID #### [facility] [address] [address] [address] Ibis Jimenez ACETAMINOPHENon 06-19-2022 Acetaminophen [Mass/Vol] ug/mL Critically low 10.0-30.0 [facility] Comment on above: Performed By: #### A KORI DAVIS #### [facility] [address] [place] [address] Dr. Ibis Jimenez DRUG SCREEN RAPID (URINE)on 06-19-2022 AMP Negative Normal NEGATIVE [facility] Comment on above: Performed By: #### M DAVID #### [facility] [address] [place] [address] Dr. Ibis Jimenez BAR Positive Abnormal NEGATIVE [facility] Comment on above: Performed By: #### M DAVID #### [facility] [address] [place] [address] Dr. Ibis Jimenez BUP Negative Normal NEGATIVE [facility] Comment on above: Performed By: #### M DAVID #### [facility] [address] [place] [address] Dr. Ibis Jimenez BZO Positive Abnormal NEGATIVE [facility] Comment on above: Performed By: #### M DAVID #### [facility] [address] [place] [address] Dr. Ibis Jimenez SEMAJ Negative Normal NEGATIVE [facility] Comment on above: Performed By: #### M DAVID #### [facility] [address] [place] [address] Dr. Ibis Jimenez CUT-OFFS SEE BELOW Normal [facility] Comment on above: Result Comment: AMP [...] ng/mL Performed By: #### M DAVID #### [facility] [address] [place] [address] Dr. Ibis Jimenez DRUG CUT HEADER DRUG CLASS TEST SYSTEM CUT-OFF CONCENTRATIONS ARE FOLLOWS: Normal [facility] Comment on above: Performed By: #### M DAVID #### [facility] [address] [place] [address] Dr. Ibis Jimenez mAMP Negative Normal NEGATIVE [facility] Comment on above: Performed By: #### M DAVID #### [facility] [address] [place] [address] Dr. Ibis Jimenez MTD Negative Normal NEGATIVE [facility] Comment on above: Performed By: #### M DAVID #### [facility] [address] [place] [address] Dr. Ibis Jimenez OPI Positive Abnormal NEGATIVE [facility] Comment on above: Performed By: #### M DAVID #### [facility] [address] [place] [address] Dr. Ibis Jimenez OXY Negative Normal NEGATIVE [facility] Comment on above: Performed By: #### M DAVID #### [facility] [address] [place] [address] Dr. Ibis Jimenez PCP Negative Normal NEGATIVE [facility] Comment on above: Performed By: #### M DAVID #### [facility] [address] [place] [address] Dr. Ibis Jimenez PPX Negative Normal NEGATIVE [facility] Comment on above: Performed By: #### M DAVID #### [facility] [address] [place] [address] Dr. Ibis Jimenez TCA Negative Normal NEGATIVE [facility] Comment on above: Performed By: #### M DAVID #### [facility] [address] [place] [address] Dr. Ibis Jimenez THC Positive Abnormal NEGATIVE [facility] Comment on above: Performed By: #### M DAVID #### [facility] [address] [place] [address] Dr. Ibis Jimenez ER URINE PROFILEon 3 Bilirubin Ql (U) Negative Normal NEGATIVE [facility] Comment on above: Performed By: #### M DAVID #### [facility] [address] [place] [address] Dr. Ibis Jimenez Clarity (U) CLEAR Normal CLEAR [facility] Comment on above: Performed By: #### M DAVID #### [facility] [address] [place] [address] Dr. Ibis Jimenez Color (U) YELLOW Normal YELLOW [facility] Comment on above: Performed By: #### M DAVID #### [facility] [address] [place] [address] Dr. Ibis RODRIGUEZ A micrscopic examination will be performed if indicated. Normal [facility] Comment on above: Performed By: #### M DAVID #### [facility] [address] [place] [address] Dr. Ibis Jimenez Glucose Ql (U) Negative Normal NEGATIVE [facility] Comment on above: Performed By: #### M DAVID #### [facility] [address] [address] [address] Ibis Jimenez Hemoglobin Ql (U) TRACE-INTACT Abnormal NEGATIVE [facility] Comment on above: Performed By: #### M DAVID #### [facility] [address] [place] [address] Dr. Ibis Jimenez Ketones Ql (U) Negative Normal NEGATIVE [facility] Comment on above: Performed By: #### M DAVID #### [facility] [address] [place] [address] Dr. Ibis Jimenez LEUKOCYTES Negative Normal NEGATIVE [facility] Comment on above: Performed By: #### M DAVID #### [facility] [address] [place] [address] Dr. Ibis Jimenez Nitrite Ql (U) Negative Normal NEGATIVE [facility] Comment on above: Performed By: #### M DAVID #### [facility] [address] [place] [address] Dr. Ibis Jimenez pH (U) 6.0 [pH] Normal 5-9 [facility] Comment on above: Performed By: #### M DAVID #### [facility] [address] [place] [address] Dr. Ibis Jimenez Protein (U) [Mass/Vol] 30 mg/dL Abnormal NEGAT ADALGISA/ TRACE [facility] Comment on above: Performed By: #### M DAVID #### [facility] [address] [place] [address] Dr. Ibis Jimenez SPEC GRAVITY 1.025 Normal 1.005-<=1.02 5 [facility] Comment on above: Performed By: #### M DAVID #### [facility] [address] [address] [address] Ibis Jimenez UR MICRO IND INDICATED Normal [facility] Comment on above: Performed By: #### M DAVID #### [facility] [address] [place] [address] Dr. Ibis Jimenez Urobilinogen Qn (U) 0.2 {Dinorah'U}/dL Normal 0.2 - 1. 0 [facility] Comment on above: Performed By: #### M DAVID #### [facility] [address] [place] [address] Dr. Ibis Jimenez ETHANOL (BLD ALC)on 06-20-19 ALC NOTE NOTE: 80 mg/dl is the legal limit for a blood alcohol level Normal [facility] Comment on above: Performed By: #### A MM #### [facility] [address] [place] [address] Dr. Ibis Jimenez Ethanol [Mass/Vol] mg/dL Normal [facility] Comment on above: Performed By: #### A MM #### [facility] [address] [place] [address] Dr. Ibis Jimenez POINT OF CARE GLUCOSEon 05-23 Glucose [Mass/Vol] 88 mg/dL Normal 74-106 [facility] Comment on above: Performed By: #### C VDTBH #### [facility] [address] [place] [address] Dr. Ibis Jimenez URon 06-19-2022 , QUAL Negative Normal NEGATIVE [facility] Comment on above: Performed By: #### M DAVID #### [facility] [address] [place] [address] Dr. Ibis Jimenez PROF CHEM 8 (BAS METB)on Anion gap [Moles/Vol] 12.6 mmol/L Normal [facility] Comment on above: Performed By: #### A MM #### [facility] [address] [place] [address] Dr. Ibis Jimenez Calcium [Mass/Vol] 8.4 mg/dL Critically low 8.5-10.1 [facility] Comment on above: Performed By: #### A MM #### [facility] [address] [place] [address] Dr. Ibis Jimenez Chloride [Moles/Vol] 107 mmol/L Normal 98-107 [facility] Comment on above: Performed By: #### A MM #### [facility] [address] [address] [address] Ibis Jimenez CO2 [Moles/Vol] 22.5 mmol/L Normal 21.0-32.0 [facility] Comment on above: Performed By: #### A MM #### [facility] [address] [place] [address] Dr. Ibis Jimenez Creatinine [Mass/Vol] 0.82 mg/dL Normal 0.55-1.02 [facility] Comment on above: Performed By: #### A MM #### [facility] [address] [place] [address] Dr. Ibis Jimenez EGFR-AF SWAZI >60 Normal >=60 [facility] Comment on above: Performed By: #### A MM #### [facility] [address] [place] [address] Dr. Ibis Jimenez EGFR-NON AF SWAZI >60 Normal >=60 [facility] Comment on above: Performed By: #### A MM #### [facility] [address] [place] [address] Dr. Ibis Jimenez Glucose [Mass/Vol] 87 mg/dL Normal 74-106 [facility] Comment on above: Performed By: #### A MM #### [facility] [address] [place] [address] Dr. Ibis Jimenez Potassium [Moles/Vol] 4.1 mmol/L Normal 3.5-5.1 [facility] Comment on above: Performed By: #### A MM #### [facility] [address] [place] [address] Dr. Ibis Jiemnez Sodium [Moles/Vol] 138 mmol/L Normal 136-145 [facility] Comment on above: Performed By: #### A MM #### [facility] [address] [place] [address] Dr. Ibis Jimenez Urea nitrogen [Mass/Vol] 22.0 mg/dL Critically high 7.0-18.0 [facility] Comment on above: Performed By: #### A MM #### [facility] [address] [place] [address] Dr. Ibis Jimenez Urea nitrogen/Creatinine [Mass ratio] 26.8 mg/mg Normal [facility] Comment on above: Performed By: #### A MM #### [facility] [address] [address] [address] Ibis Jimenez SALICYLATEon 06-19-2022 SALICYLATE <2.8 Normal <=19.9 [facility] Comment on above: Performed By: #### A CET, SALYC #### [facility] [address] [place] [address] Dr. Ibis Jimenez URINE MICROSCOPIC ONLYon BACTERIA NONE SEEN Normal NONE SEEN [facility] Comment on above: Performed By: #### M DAVID #### [facility] [address] [place] [address] Dr. Ibis Jimenez Bacteria identified Cx Nom (U) NOT INDICATED Normal [facility] Comment on above: Performed By: #### M DAVID #### [facility] [address] [place] [address] Dr. Ibis Jimenez CAST SEEN Abnormal NONE SEEN [facility] Comment on above: Performed By: #### M DAVID #### [facility] [address] [place] [address] Dr. Ibis Jimenez Crystals LM Nom (Urine sed) NONE SEEN Normal NONE SEEN [facility] Comment on above: Performed By: #### M DAVID #### [facility] [address] [address] [address] Ibis Jimenez Epithelial cells LM Ql (Urine sed) MODERATE Abnormal NONE SEEN /RARE [facility] Comment on above: Performed By: #### M DAVID #### [facility] [address] [place] [address] Dr. Ibis Jimenez HYALINE CAST FEW Normal [facility] Comment on above: Performed By: #### M DAVID #### [facility] [address] [place] [address] Dr. Ibis Jimenez MUCOUS NONE SEEN Normal NONE SEEN [facility] Comment on above: Performed By: #### M DAVID #### [facility] [address] [place] [address] Dr. Ibis Jimenez RBC 2-5 Abnormal 0-2 [facility] Comment on above: Performed By: #### M DAVID #### [facility] [address] [place] [address] Dr. Ibis Jimenez WBC NONE SEEN Normal NONE SEEN [facility] Comment on above: Performed By: #### M DAVID #### [facility] [address] [place] [address] Dr. Ibis Jimenez CBC AUTO DIFFon 06-11-2022 BASO # 0.0 103/ul Normal 0.0-0.1 [facility] Comment on above: Performed By: #### C VDTBH #### [facility] [address] [place] [address] Dr. Ibis Jimenez Basophils/100 WBC (Bld) 0.3 % Normal 0.2-2.0 [facility] Comment on above: Performed By: #### C VDTBH #### [facility] [address] [place] [address] Dr. Ibis Jimenez EO # 0.0 103/ul Normal 0.0-0.7 [facility] Comment on above: Performed By: #### C VDTBH #### [facility] [address] [place] [address] Dr. Ibis Jimenez Eosinophils/100 WBC (Bld) 0.1 % Critically low 0.9-7.0 [facility] Comment on above: Performed By: #### C VDTBH #### [facility] [address] [place] [address] Dr. Ibis Jimenez Erythrocyte distribution width (RBC) [Ratio] 13.2 % Normal 11.0-15.0 [facility] Comment on above: Performed By: #### C VDTBH #### [facility] [address] [place] [address] Dr. Ibis Jimenez Hematocrit (Bld) [Volume fraction] 38.5 % Normal 36.0-48.0 [facility] Comment on above: Performed By: #### C VDTBH #### [facility] [address] [place] [address] Dr. Ibis Jimenez Hemoglobin (Bld) [Mass/Vol] 12.4 g/dL Normal 12.0-16.0 [facility] Comment on above: Performed By: #### C VDTBH #### [facility] [address] [place] [address] Dr. Ibis Jimenez IG # 0.20 10e3/ul Critically high 0.00-0.03 [facility] Comment on above: Performed By: #### C VDTBH #### [facility] [address] [place] [address] Dr. Ibis Jimenez IG % 1.8 % Critically high 0.0-0.5 [facility] Comment on above: Performed By: #### C VDTBH #### [facility] [address] [place] [address] Dr. Ibis Jimenez LYMPH # 0.5 103/ul Critically low 1.2-3.8 [facility] Comment on above: Performed By: #### C VDTBH #### [facility] [address] [place] [address] Dr. Ibis Jimenez Lymphocytes/100 WBC (Bld) 4.6 % Critically low 20.5-60.0 [facility] Comment on above: Performed By: #### C VDTBH #### [facility] [address] [place] [address] Dr. Ibis Jimenez MANUAL DIFF REQ NO Normal [facility] Comment on above: Performed By: #### C VDTBH #### [facility] [address] [place] [address] Dr. Ibis Jimenez MCH (RBC) [Entitic mass] 28.2 pg Normal 26.7-34.0 [facility] Comment on above: Performed By: #### C VDTBH #### [facility] [address] [place] [address] Dr. Ibis Jimenez MCHC (RBC) [Mass/Vol] 32.2 g/dL Normal 29.9-35.2 [facility] Comment on above: Performed By: #### C VDTBH #### [facility] [address] [place] [address] Dr. Ibis Jimenez MCV (RBC) [Entitic vol] 87.5 fL Normal 81.0-99.0 [facility] Comment on above: Performed By: #### C VDTBH #### [facility] [address] [place] [address] Dr. Ibis Jimenez MONO # 0.1 103/ul Critically low 0.3-0.8 [facility] Comment on above: Performed By: #### C VDTBH #### [facility] [address] [place] [address] Dr. Ibis Jimenez Monocytes/100 WBC (Bld) 1.3 % Critically low 1.7-12.0 [facility] Comment on above: Performed By: #### C VDTBH #### [facility] [address] [place] [address] Dr. Ibis Jimenez NEUT # 10.1 103/ul Critically high 1.4-6.5 [facility] Comment on above: Performed By: #### C VDTBH #### [facility] [address] [place] [address] Dr. Ibis Jimenez Neutrophils/100 WBC (Bld) 91.9 % Critically high 43.0-75.0 [facility] Comment on above: Performed By: #### C VDTBH #### [facility] [address] [place] [address] Dr. Ibis Jimenez Platelet mean volume (Bld) [Entitic vol] 9.1 fL Critically low 9.5-13.5 [facility] Comment on above: Performed By: #### C VDTBH #### [facility] [address] [place] [address] Dr. Ibis Jimenez PLT 240 103/ul Normal 150-450 [facility] Comment on above: Performed By: #### C VDTBH #### [facility] [address] [place] [address] Dr. Ibis Jimenez RBC 4.40 106/ul Normal 4.20-5.40 [facility] Comment on above: Performed By: #### C VDTBH #### [facility] [address] [place] [address] Dr. Ibis Jimenez WBC 11.0 103/ul Normal 4.0-11.0 [facility] Comment on above: Performed By: #### C VDTB #### [facility] [address] [place] [address] Dr. Ibis Jimenez PROF 14(COMP METB)on 023 Albumin [Mass/Vol] 3.3 g/dL Critically low 3.4-5.0 [facility] Comment on above: Performed By: #### B MP #### [facility] [address] [place] [address] Dr. Ibis Jimenez Albumin/Globulin [Mass ratio] 0.9 {ratio} Normal [facility] Comment on above: Performed By: #### B MP #### [facility] [address] [place] [address] Dr. Ibis Jimenez ALP [Catalytic activity/Vol] 63 U/L Normal 46-116 [facility] Comment on above: Performed By: #### B MP #### [facility] [address] [place] [address] Dr. Ibis Jimenez ALT [Catalytic activity/Vol] 32 U/L Normal 14-59 [facility] Comment on above: Performed By: #### B MP #### [facility] [address] [place] [address] Dr. Ibis Jimenez Anion gap [Moles/Vol] 12.9 mmol/L Normal [facility] Comment on above: Performed By: #### B MP #### [facility] [address] [place] [address] Dr. Ibis Jimenez AST [Catalytic activity/Vol] 14 U/L Critically low 15-37 [facility] Comment on above: Performed By: #### B MP #### [facility] [address] [address] [address] Ibis Jimenez Bilirubin [Mass/Vol] 0.2 mg/dL Normal 0.2-1.0 [facility] Comment on above: Performed By: #### B MP #### [facility] [address] [place] [address] Dr. Ibis Jimenez Calcium [Mass/Vol] 8.5 mg/dL Normal 8.5-10.1 [facility] Comment on above: Performed By: #### B MP #### [facility] [address] [place] [address] Dr. Ibis Jimenez Chloride [Moles/Vol] 106 mmol/L Normal 98-107 [facility] Comment on above: Performed By: #### B MP #### [facility] [address] [place] [address] Dr. Ibis Jimenez CO2 [Moles/Vol] 26.6 mmol/L Normal 21.0-32.0 [facility] Comment on above: Performed By: #### B MP #### [facility] [address] [place] [address] Dr. Ibis Jimenez Creatinine [Mass/Vol] 0.89 mg/dL Normal 0.55-1.02 [facility] Comment on above: Performed By: #### B MP #### [facility] [address] [place] [address] Dr. Ibis Jimenez EGFR-AF SWAZI >60 Normal >=60 [facility] Comment on above: Performed By: #### B MP #### [facility] [address] [address] [address] Ibis Jimenez EGFR-NON AF SWAZI >60 Normal >=60 [facility] Comment on above: Performed By: #### B MP #### [facility] [address] [place] [address] Dr. Ibis Jimenez Globulin (S) [Mass/Vol] 3.6 g/dL Normal [facility] Comment on above: Performed By: #### B MP #### [facility] [address] [address] [address] Ibis Jimenez Glucose [Mass/Vol] 134 mg/dL Critically high 74-106 [facility] Comment on above: Performed By: #### B MP #### [facility] [address] [address] [address] Ibis Jimenez Potassium [Moles/Vol] 4.5 mmol/L Normal 3.5-5.1 [facility] Comment on above: Performed By: #### B MP #### [facility] [address] [address] [address] Ibis Jimenez Protein [Mass/Vol] 6.9 g/dL Normal 6.4-8.2 [facility] Comment on above: Performed By: #### B MP #### [facility] [address] [place] [address] Dr. Ibis Jimenez Sodium [Moles/Vol] 141 mmol/L Normal 136-145 [facility] Comment on above: Performed By: #### B MP #### [facility] [address] [place] [address] Dr. Ibis Jimenez Urea nitrogen [Mass/Vol] 15.0 mg/dL Normal 7.0-18.0 [facility] Comment on above: Performed By: #### B MP #### [facility] [address] [place] [address] Dr. Ibis Jimenez Urea nitrogen/Creatinine [Mass ratio] 16.9 mg/mg Normal [facility] Comment on above: Performed By: #### B MP #### [facility] [address] [place] [address] HEAD WO CONon [...] by: NICHOLAS MARCUS Date: 2022-05-23 19:[address] [facility] [address] LSPINE WO CONon CT [place] WO CON CT CERVICAL SPINE WITHOUT CONTRAST. [...] SINDY KING Date: 2022-05-23 19:41 Normal [facility] CT HEAD WO CONon 04-01-2022 CT [...] ROBIN IRBY Date: 2022-03-31 22:40 Normal [facility] Covid-19 PCR ([facility])on 03-23 SARS-CoV-2 (COVID-19) RNA SAURABH+probe Ql (Unsp spec) Not detected Normal NOT DETECTED [facility] Comment on above: Result Comment: When [...] for this test is supported by the [employer] Professor of Health and Human Service's declaration [...] used). Performed By: #### C VDTBH #### [facility] [address] [place] [address] Dr. Ibis Jimenez ER URINE PROFILEon 3 Bilirubin Ql (U) Negative Normal NEGATIVE [facility] Comment on above: Performed By: #### A KORI DAVIS #### [facility] [address] [place] [address] Dr. Ibis Jimenez Clarity (U) CLEAR Normal CLEAR [facility] Comment on above: Performed By: #### A KORI DAVIS #### [facility] [address] [place] [address] Dr. Ibis Jimenez Color (U) YELLOW Normal YELLOW [facility] Comment on above: Performed By: #### A CET, SALYC #### [facility] [address] [place] [address] Dr. Ibis RODRIGUEZ A micrscopic examination will be performed if indicated. Normal [facility] Comment on above: Performed By: #### A CET, SALYC #### [facility] [address] [place] [address] Dr. Ibis Jimenez Glucose Ql (U) Negative Normal NEGATIVE [facility] Comment on above: Performed By: #### A CET, SALYC #### [facility] [address] [place] [address] Dr. Ibis Jimenez Hemoglobin Ql (U) SMALL Abnormal NEGATIVE [facility] Comment on above: Performed By: #### A CET, SALYC #### [facility] [address] [place] [address] Dr. Ibis Jimenez Ketones Ql (U) Negative Normal NEGATIVE [facility] Comment on above: Performed By: #### A CET, SALYC #### [facility] [address] [place] [address] Dr. Ibis Jimenez LEUKOCYTES Negative Normal NEGATIVE [facility] Comment on above: Performed By: #### A CET, SALYC #### [facility] [address] [place] [address] Dr. Ibis Jimenez Nitrite Ql (U) Negative Normal NEGATIVE [facility] Comment on above: Performed By: #### A CET, SALYC #### [facility] [address] [place] [address] Dr. Ibis Jimenez pH (U) 5.5 [pH] Normal 5-9 [facility] Comment on above: Performed By: #### A CET, SALYC #### [facility] [address] [place] [address] Dr. Ibis Jimenez SPEC GRAVITY >=1.030 Abnormal 1.005-<=1.02 5 [facility] Comment on above: Performed By: #### A CET, SALYC #### [facility] [address] [place] [address] Dr. Ibis Jmienez UA PROTEIN Negative Normal NEGATIVE/ TRACE [facility] Comment on above: Performed By: #### A CET, KORI #### [facility] [address] [place] [address] Dr. Ibis Jimenez UR MICRO IND INDICATED Normal [facility] Comment on above: Performed By: #### A CET, SALYC #### [facility] [address] [place] [address] Dr. Ibis Jimenez Urobilinogen Qn (U) 0.2 {Dinorah'U}/dL Normal 0.2 - 1. 0 [facility] Comment on above: Performed By: #### A KORI DAVIS #### [facility] [address] [place] [address] Dr. Ibis Jimenez INFLUENZA A AND B AGon 04-01 INFLUANEGH SEE BELOW Normal [facility] Comment on above: Result Comment: Nega tive for Flu A protein angiten. Infection due to Flu A cannot be ruled out. Flu A angiten in the sample may be below the detection limit of the test. Performed By: #### A MM #### [facility] [address] [place] [address] Dr. Ibis Jimenez INFLUBNEGH SEE BELOW Normal [facility] Comment on above: Result Comment: Nega tive for Flu B protein antigen. Infection due to Flu B cannot be ruled out. Flu B antigen in the sample may be below the detection limit of the test. Performed By: #### A MM #### [facility] [address] [place] [address] Dr. Ibis Jimenez INFLUENZA A AG Negative Normal NEGATIVE SEE COMMENT [facility] Comment on above: Performed By: #### A MM #### [facility] [address] [place] [address] Dr. Ibis Jimenez INFLUENZA B AG Negative Normal NEGATIVE SEE COMMENT [facility] Comment on above: Performed By: #### A MM #### [facility] [address] [place] [address] Dr. Ibis Jimenez LACTATE/LACTIC ACIDon 2022 Lactate [Moles/Vol] 1.9 mmol/L Normal 0.4-1.9 [facility] Comment on above: Performed By: #### L ACT #### [facility] [address] [place] [address] Dr. Ibis Jimenez URINE MICROSCOPIC ONLYon BACTERIA TRACE Abnormal NONE SEEN [facility] Comment on above: Performed By: #### A CET, SALYC #### [facility] [address] [place] [address] Dr. Ibis Jimenez Bacteria identified Cx Nom (U) NOT INDICATED Normal [facility] Comment on above: Performed By: #### A CET, SALYC #### [facility] [address] [place] [address] Dr. Ibis Jimenez CAST NONE SEEN Normal NONE SEEN [facility] Comment on above: Performed By: #### A CET, SALYC #### [facility] [address] [place] [address] Dr. Ibis Jimenez Crystals LM Nom (Urine sed) NONE SEEN Normal NONE SEEN [facility] Comment on above: Performed By: #### A CET, SALYC #### [facility] [address] [place] [address] Dr. Ibis Jimenez Epithelial cells LM Ql (Urine sed) RARE Normal NONE SEEN /RARE [facility] Comment on above: Performed By: #### A CET, SALYC #### [facility] [address] [place] [address] Dr. Ibis Jimenez MUCOUS TRACE Abnormal NONE SEEN [facility] Comment on above: Performed By: #### A CET, SALYC #### [facility] [address] [place] [address] Dr. Ibis Jimenez RBC 0-2 Normal 0-2 [facility] Comment on above: Performed By: #### A CET, SALYC #### [facility] [address] [place] [address] Dr. Ibis Jimenez WBC NONE SEEN Normal NONE SEEN [facility] Comment on above: Performed By: #### A CET, SALYC #### [facility] [address] [place] [address] Dr. Ibis Jimenez AMMONIAon 03-31-2022 Ammonia (P) [Moles/Vol] 31 umol/L Normal 11-32 [facility] Comment on above: Performed By: #### A MM #### [facility] [address] [place] [address] Dr. Ibis Jimenez CBC AUTO DIFFon 03-31-2022 BASO # 0.0 103/ul Normal 0.0-0.1 [facility] Comment on above: Performed By: #### A MM #### [facility] [address] [place] [address] Dr. Ibis Jimenez Basophils/100 WBC (Bld) 0.4 % Normal 0.2-2.0 [facility] Comment on above: Performed By: #### A MM #### [facility] [address] [place] [address] Dr. Ibis Jimenez EO # 0.5 103/ul Normal 0.0-0.7 [facility] Comment on above: Performed By: #### A MM #### [facility] [address] [place] [address] Dr. Ibis Jimenez Eosinophils/100 WBC (Bld) 6.4 % Normal 0.9-7.0 [facility] Comment on above: Performed By: #### A MM #### [facility] [address] [place] [address] Dr. Ibis Jimenez Erythrocyte distribution width (RBC) [Ratio] 12.8 % Normal 11.0-15.0 [facility] Comment on above: Performed By: #### A MM #### [facility] [address] [place] [address] Dr. Ibis Jimenez Hematocrit (Bld) [Volume fraction] 36.6 % Normal 36.0-48.0 [facility] Comment on above: Performed By: #### A MM #### [facility] [address] [place] [address] Dr. Ibis Jimenez Hemoglobin (Bld) [Mass/Vol] 12.5 g/dL Normal 12.0-16.0 [facility] Comment on above: Performed By: #### A MM #### [facility] [address] [place] [address] Dr. Ibis Jimenez IG # 0.02 10e3/ul Normal 0.00-0.03 [facility] Comment on above: Performed By: #### A MM #### [facility] [address] [place] [address] Dr. Ibis Jimenez IG % 0.3 % Normal 0.0-0.5 [facility] Comment on above: Performed By: #### A MM #### [facility] [address] [place] [address] Dr. Ibis Jimenez LYMPH # 2.0 103/ul Normal 1.2-3.8 [facility] Comment on above: Performed By: #### A MM #### [facility] [address] [place] [address] Dr. Ibis Jimenez Lymphocytes/100 WBC (Bld) 25.0 % Normal 20.5-60.0 [facility] Comment on above: Performed By: #### A MM #### [facility] [address] [place] [address] Dr. Ibis Jimenez MANUAL DIFF REQ NO Normal [facility] Comment on above: Performed By: #### A MM #### [facility] [address] [place] [address] Dr. Ibis Jimenez MCH (RBC) [Entitic mass] 29.5 pg Normal 26.7-34.0 [facility] Comment on above: Performed By: #### A MM #### [facility] [address] [place] [address] Dr. Ibis Jimenez MCHC (RBC) [Mass/Vol] 34.2 g/dL Normal 29.9-35.2 [facility] Comment on above: Performed By: #### A MM #### [facility] [address] [place] [address] Dr. Ibis Jimenez MCV (RBC) [Entitic vol] 86.3 fL Normal 81.0-99.0 [facility] Comment on above: Performed By: #### A MM #### [facility] [address] [place] [address] Dr. Ibis Jimenez MONO # 0.4 103/ul Normal 0.3-0.8 [facility] Comment on above: Performed By: #### A MM #### [facility] [address] [place] [address] Dr. Ibis Jimenez Monocytes/100 WBC (Bld) 5.6 % Normal 1.7-12.0 [facility] Comment on above: Performed By: #### A MM #### [facility] [address] [place] [address] Dr. Ibis Jimenez NEUT # 4.9 103/ul Normal 1.4-6.5 [facility] Comment on above: Performed By: #### A MM #### [facility] [address] [place] [address] Dr. Ibis Jimenez Neutrophils/100 WBC (Bld) 62.3 % Normal 43.0-75.0 [facility] Comment on above: Performed By: #### A MM #### [facility] [address] [place] [address] Dr. Ibis Jimenez Platelet mean volume (Bld) [Entitic vol] 9.5 fL Normal 9.5-13.5 [facility] Comment on above: Performed By: #### A MM #### [facility] [address] [place] [address] Dr. Ibis Jimenez PLT 246 103/ul Normal 150-450 [facility] Comment on above: Performed By: #### A MM #### [facility] [address] [place] [address] Dr. Ibis Jimenez RBC 4.24 106/ul Normal 4.20-5.40 [facility] Comment on above: Performed By: #### A MM #### [facility] [address] [place] [address] Dr. Ibis Jimenez WBC 7.8 103/ul Normal 4.0-11.0 [facility] Comment on above: Performed By: #### A MM #### [facility] [address] [place] [address] Dr. Ibis Jimenez CULTURE BLOODon 03-31-2022 Microscopic examination of blood, culture Culture Observations: NO GROWTH AT 5 DAYS. Normal [facility] Comment on above: Performed By: #### B LDCX2 #### [facility] [address] [place] [address] Dr. Ibis Jimenez Microscopic examination of blood, culture Culture Observations: NO GROWTH AT 5 DAYS. Normal [facility] Comment on above: Performed By: #### B MP #### [facility] [address] [place] [address] Dr. Ibis Jimenez LACTATE/LACTIC ACIDon 2022 Lactate [Moles/Vol] 2.8 mmol/L Critically high 0.4-1.9 [facility] Comment on above: Performed By: #### C VDTBH #### [facility] [address] [place] [address] Dr. Ibis Jimenez PROF 14(COMP METB)on 023 Albumin [Mass/Vol] 3.4 g/dL Normal 3.4-5.0 [facility] Comment on above: Performed By: #### B MP #### [facility] [address] [place] [address] Dr. Ibis Jimenez Albumin/Globulin [Mass ratio] 1.2 {ratio} [facility] Comment on above: Performed By: #### B MP #### [facility] [address] [place] [address] Dr. Ibis Jimenez ALP [Catalytic activity/Vol] 85 U/L Normal 46-116 [facility] Comment on above: Performed By: #### B MP #### [facility] [address] [place] [address] Dr. Ibis Jimenez ALT [Catalytic activity/Vol] 18 U/L Normal 14-59 [facility] Comment on above: Performed By: #### B MP #### [facility] [address] [place] [address] Dr. Ibis Jimenez Anion gap [Moles/Vol] 13.2 mmol/L Normal [facility] Comment on above: Performed By: #### B MP #### [facility] [address] [place] [address] Dr. Ibis Jimenez AST [Catalytic activity/Vol] 11 U/L Critically low 15-37 [facility] Comment on above: Performed By: #### B MP #### [facility] [address] [address] [address] Ibis Jimenez Bilirubin [Mass/Vol] 0.2 mg/dL Normal 0.2-1.0 [facility] Comment on above: Performed By: #### B MP #### [facility] [address] [address] [address] Ibis Jimenez Calcium [Mass/Vol] 8.6 mg/dL Normal 8.5-10.1 [facility] Comment on above: Performed By: #### B MP #### [facility] [address] [address] [address] Ibis Jimenez Chloride [Moles/Vol] 105 mmol/L Normal 98-107 [facility] Comment on above: Performed By: #### B MP #### [facility] [address] [address] [address] Ibis Jimenez CO2 [Moles/Vol] 25.1 mmol/L Normal 21.0-32.0 [facility] Comment on above: Performed By: #### B MP #### [facility] [address] [place] [address] Dr. Ibis Jimenez Creatinine [Mass/Vol] 0.80 mg/dL Normal 0.55-1.02 [facility] Comment on above: Performed By: #### B MP #### [facility] [address] [address] [address] Ibis Jimenez EGFR-AF SWAZI >60 Normal >=60 [facility] Comment on above: Performed By: #### B MP #### [facility] [address] [address] [address] Ibis Jimenez EGFR-NON AF SWAZI >60 Normal >=60 [facility] Comment on above: Performed By: #### B MP #### [facility] [address] [place] [address] Dr. Ibis Jimenez Globulin (S) [Mass/Vol] 2.9 g/dL Normal [facility] Comment on above: Performed By: #### B MP #### [facility] [address] [address] [address] Ibis Jimenez Glucose [Mass/Vol] 99 mg/dL Normal 74-106 [facility] Comment on above: Performed By: #### B MP #### [facility] [address] [address] [address] Ibis Jimenez Potassium [Moles/Vol] 3.3 mmol/L Critically low 3.5-5.1 [facility] Comment on above: Performed By: #### B MP #### [facility] [address] [address] [address] Ibis Jimenez Protein [Mass/Vol] 6.3 g/dL Critically low 6.4-8.2 [facility] Comment on above: Performed By: #### B MP #### [facility] [address] [address] [address] Ibis Jimenez Sodium [Moles/Vol] 140 mmol/L Normal 136-145 [facility] Comment on above: Performed By: #### B MP #### [facility] [address] [place] [address] Dr. Ibis Jimenez Urea nitrogen [Mass/Vol] 10.0 mg/dL Normal 7.0-18.0 [facility] Comment on above: Performed By: #### B MP #### [facility] [address] [address] [address] Ibis Jimenez Urea nitrogen/Creatinine [Mass ratio] 12.5 mg/mg Normal [facility] Comment on above: Performed By: #### B MP #### [facility] [address] [address] [address] Ibis Jimenez CBC AUTO DIFFon 01-14-2022 BASO # 0.0 103/ul Normal 0.0-0.1 [facility] Comment on above: Performed By: #### A MM #### [facility] [address] [address] [address] Ibis Jimenez Basophils/100 WBC (Bld) 0.3 % Normal 0.2-2.0 [facility] Comment on above: Performed By: #### A MM #### [facility] [address] [place] [address] Dr. Ibis Jimenez EO # 0.2 103/ul Normal 0.0-0.7 [facility] Comment on above: Performed By: #### A MM #### [facility] [address] [place] [address] Dr. Ibis Jimenez Eosinophils/100 WBC (Bld) 2.7 % Normal 0.9-7.0 [facility] Comment on above: Performed By: #### A MM #### [facility] [address] [place] [address] Dr. Ibis Jimenez Erythrocyte distribution width (RBC) [Ratio] 13.2 % Normal 11.0-15.0 [facility] Comment on above: Performed By: #### A MM #### [facility] [address] [place] [address] Dr. Ibis Jimenez Hematocrit (Bld) [Volume fraction] 35.7 % Critically low 36.0-48.0 [facility] Comment on above: Performed By: #### A MM #### [facility] [address] [place] [address] Dr. Ibis Jimenez Hemoglobin (Bld) [Mass/Vol] 12.2 g/dL Normal 12.0-16.0 [facility] Comment on above: Performed By: #### A MM #### [facility] [address] [place] [address] Dr. Ibis Jimenze IG # 0.04 10e3/ul Critically high 0.00-0.03 [facility] Comment on above: Performed By: #### A MM #### [facility] [address] [place] [address] Dr. Ibis Jimenez IG % 0.5 % Normal 0.0-0.5 [facility] Comment on above: Performed By: #### A MM #### [facility] [address] [place] [address] Dr. Ibis Jimenez LYMPH # 2.1 103/ul Normal 1.2-3.8 [facility] Comment on above: Performed By: #### A MM #### [facility] [address] [place] [address] Dr. Ibis Jimenez Lymphocytes/100 WBC (Bld) 27.3 % Normal 20.5-60.0 [facility] Comment on above: Performed By: #### A MM #### [facility] [address] [place] [address] Dr. Ibis Jimenez MANUAL DIFF REQ NO Normal [facility] Comment on above: Performed By: #### A MM #### [facility] [address] [place] [address] Dr. Ibis Jimenez MCH (RBC) [Entitic mass] 29.0 pg Normal 26.7-34.0 [facility] Comment on above: Performed By: #### A MM #### [facility] [address] [place] [address] Dr. Ibis Jimenez MCHC (RBC) [Mass/Vol] 34.2 g/dL Normal 29.9-35.2 [facility] Comment on above: Performed By: #### A MM #### [facility] [address] [place] [address] Dr. Ibis Jimenez MCV (RBC) [Entitic vol] 84.8 fL Normal 81.0-99.0 [facility] Comment on above: Performed By: #### A MM #### [facility] [address] [place] [address] Dr. Ibis Jimenez MONO # 0.7 103/ul Normal 0.3-0.8 [facility] Comment on above: Performed By: #### A MM #### [facility] [address] [place] [address] Dr. Ibis Jimenez Monocytes/100 WBC (Bld) 8.7 % Normal 1.7-12.0 [facility] Comment on above: Performed By: #### A MM #### [facility] [address] [place] [address] Dr. Ibis Jimenez NEUT # 4.7 103/ul Normal 1.4-6.5 [facility] Comment on above: Performed By: #### A MM #### [facility] [address] [place] [address] Dr. Ibis Jimenez Neutrophils/100 WBC (Bld) 60.5 % Normal 43.0-75.0 [facility] Comment on above: Performed By: #### A MM #### [facility] [address] [place] [address] Dr. Ibis Jimenez Platelet mean volume (Bld) [Entitic vol] 9.6 fL Normal 9.5-13.5 [facility] Comment on above: Performed By: #### A MM #### [facility] [address] [place] [address] Dr. Ibis Jimenez PLT 212 103/ul Normal 150-450 [facility] Comment on above: Performed By: #### A MM #### [facility] [address] [place] [address] Dr. Ibis Jimenez RBC 4.21 106/ul Normal 4.20-5.40 [facility] Comment on above: Performed By: #### A MM #### [facility] [address] [place] [address] Dr. Ibis Jimenez WBC 7.7 103/ul Normal 4.0-11.0 [facility] Comment on above: Performed By: #### A MM #### [facility] [address] [place] [address] ABD/PELV W CONon [...] TONY DAHL Date: 2022-01-14 20:01 Normal [facility] ER URINE PROFILEon 2 Bilirubin Ql (U) Negative Normal NEGATIVE [facility] Comment on above: Performed By: #### A CET, SALYC #### [facility] [address] [place] [address] Dr. Ibis Jimenez Clarity (U) CLEAR Normal CLEAR [facility] Comment on above: Performed By: #### A CET, SALYC #### [facility] [address] [place] [address] Dr. Ibis Jimenez Color (U) LT. YELLOW Normal YELLOW [facility] Comment on above: Performed By: #### A CET, SALYC #### [facility] [address] [place] [address] Dr. Ibis Jimenez ERUAHD A micrscopic examination will be performed if indicated. Normal [facility] Comment on above: Performed By: #### A CET, SALYC #### [facility] [address] [place] [address] Dr. Ibis Jimenez Glucose Ql (U) Negative Normal NEGATIVE [facility] Comment on above: Performed By: #### A CET, SALYC #### [facility] [address] [place] [address] Dr. Ibis Jimenez Hemoglobin Ql (U) Negative Normal NEGATIVE [facility] Comment on above: Performed By: #### A CET, SALYC #### [facility] [address] [place] [address] Dr. Ibis Jimenez Ketones Ql (U) Negative Normal NEGATIVE [facility] Comment on above: Performed By: #### A CET, SALYC #### [facility] [address] [place] [address] Dr. Ibis Jimenez LEUKOCYTES TRACE Abnormal NEGATIVE [facility] Comment on above: Performed By: #### A CET, SALYC #### [facility] [address] [place] [address] Dr. Ibis Jimenez Nitrite Ql (U) Negative Normal NEGATIVE [facility] Comment on above: Performed By: #### A CET, SALYC #### [facility] [address] [place] [address] Dr. Ibis Jimenez pH (U) 5.5 [pH] Normal 5-9 [facility] Comment on above: Performed By: #### A CET, SALYC #### [facility] [address] [place] [address] Dr. Ibis Jimenez SPEC GRAVITY 1.025 Normal 1.005-<=1.[address] [place] [address] Comment on above: Performed By: #### A CET, SALYC #### [facility] [address] [place] [address] Dr. Ibis Jimenez UA PROTEIN Negative Normal NEGATIVE/ TRACE [facility] Comment on above: Performed By: #### A CET, SALYC #### [facility] [address] [place] [address] Dr. Ibis Jimenez UR MICRO IND INDICATED Normal [facility] Comment on above: Performed By: #### A CET, SALYC #### [facility] [address] [place] [address] Dr. Ibis Jimenez Urobilinogen Qn (U) 0.2 {Dinorah'U}/dL Normal 0.2 - 1. 0 [facility] Comment on above: Performed By: #### A CET, SALYC #### [facility] [address] [address] [address] Ibis Jimenez URon 01-14-2022 , QUAL Negative Normal NEGATIVE [facility] Comment on above: Performed By: #### A CET, SALYC #### [facility] [address] [address] [address] Ibis Jimenez PROF CHEM 8 (BAS METB)on Anion gap [Moles/Vol] 9.9 mmol/L Normal [facility] Comment on above: Performed By: #### B MP #### [facility] [address] [address] [address] Ibis Jimenez Calcium [Mass/Vol] 8.6 mg/dL Normal 8.5-10.1 [facility] Comment on above: Performed By: #### B MP #### [facility] [address] [address] [address] Ibis Jimenez Chloride [Moles/Vol] 105 mmol/L Normal 98-107 [facility] Comment on above: Performed By: #### B MP #### [facility] [address] [address] [address] Ibis Jimenez CO2 [Moles/Vol] 27.5 mmol/L Normal 21.0-32.0 [facility] Comment on above: Performed By: #### B MP #### [facility] [address] [address] [address] Ibis Jimenez Creatinine [Mass/Vol] 0.70 mg/dL Normal 0.55-1.02 [facility] Comment on above: Performed By: #### B MP #### [facility] [address] [address] [address] Ibis Jimenez EGFR-AF SWAZI >60 Normal >=60 [facility] Comment on above: Performed By: #### B MP #### [facility] [address] [address] [address] Ibis Jimenez EGFR-NON AF SWAZI >60 Normal >=60 [facility] Comment on above: Performed By: #### B MP #### [facility] [address] [address] [address] Ibis Jimenez Glucose [Mass/Vol] 83 mg/dL Normal 74-106 [facility] Comment on above: Performed By: #### B MP #### [facility] [address] [place] [address] Dr. Ibis Jimenez Potassium [Moles/Vol] 4.4 mmol/L Normal 3.5-5.1 [facility] Comment on above: Performed By: #### B MP #### [facility] [address] [place] [address] Dr. Ibis Jimenez Sodium [Moles/Vol] 138 mmol/L Normal 136-145 [facility] Comment on above: Performed By: #### B MP #### [facility] [address] [place] [address] Dr. Ibis Jimenez Urea nitrogen [Mass/Vol] 13.0 mg/dL Normal 7.0-18.0 [facility] Comment on above: Performed By: #### B MP #### [facility] [address] [place] [address] Dr. Ibis Jimenez Urea nitrogen/Creatinine [Mass ratio] 18.6 mg/mg Normal [facility] Comment on above: Performed By: #### B MP #### [facility] [address] [place] [address] Dr. Ibis Jimenez URINE MICROSCOPIC ONLYon BACTERIA NONE SEEN Normal NONE SEEN [facility] Comment on above: Performed By: #### A CET SALYC #### [facility] [address] [place] [address] Dr. Ibis Jimenez Bacteria identified Cx Nom (U) NOT INDICATED Normal [facility] Comment on above: Performed By: #### A CET, SALYC #### [facility] [address] [place] [address] Dr. Ibis Jimenez CAST NONE SEEN Normal NONE SEEN [facility] Comment on above: Performed By: #### A CET, SALYC #### [facility] [address] [place] [address] Dr. Ibis Jimenez Crystals LM Nom (Urine sed) NONE SEEN Normal NONE SEEN [facility] Comment on above: Performed By: #### A CET, SALYC #### [facility] [address] [place] [address] Dr. Ibis Jimenez Epithelial cells LM Ql (Urine sed) FEW Abnormal NONE SEEN /RARE [facility] Comment on above: Performed By: #### A CET, SALYC #### [facility] [address] [place] [address] Dr. Ibis Jimenez MUCOUS NONE SEEN Normal NONE SEEN [facility] Comment on above: Performed By: #### A CET, SALYC #### [facility] [address] [place] [address] Dr. Ibis Jimenez RBC NONE SEEN Abnormal 0-2 [facility] Comment on above: Performed By: #### A CET, SALYC #### [facility] [address] [place] [address] Dr. Ibis Jimenez WBC NONE SEEN Normal NONE SEEN [facility] Comment on above: Performed By: #### A CET, SALYC #### [facility] [address] [place] [address] Dr. Ibis Jimenez CBC AUTO DIFFon 01-07-2022 BASO # 0.0 103/ul Normal 0.0-0.1 [facility] Comment on above: Performed By: #### A CET, SALYC #### [facility] [address] [place] [address] Dr. Ibis Jimenez Basophils/100 WBC (Bld) 0.2 % Normal 0.2-2.0 [facility] Comment on above: Performed By: #### A CET, SALYC #### [facility] [address] [place] [address] Dr. Ibis Jimenez EO # 0.0 103/ul Normal 0.0-0.7 [facility] Comment on above: Performed By: #### A CET, SALYC #### [facility] [address] [place] [address] Dr. Ibis Jimenez Eosinophils/100 WBC (Bld) 0.4 % Critically low 0.9-7.0 [facility] Comment on above: Performed By: #### A CET, SALYC #### [facility] [address] [place] [address] Dr. Ibis Jimenez Erythrocyte distribution width (RBC) [Ratio] 13.2 % Normal 11.0-15.0 [facility] Comment on above: Performed By: #### A CET, SALYC #### [facility] [address] [place] [address] Dr. Ibis Jimenez Hematocrit (Bld) [Volume fraction] 39.7 % Normal 36.0-48.0 [facility] Comment on above: Performed By: #### A CET, SALYC #### [facility] [address] [place] [address] Dr. Ibis Jimenez Hemoglobin (Bld) [Mass/Vol] 13.4 g/dL Normal 12.0-16.0 [facility] Comment on above: Performed By: #### A CET, SALYC #### [facility] [address] [place] [address] Dr. Ibis Jimenez IG # 0.06 10e3/ul Critically high 0.00-0.03 [facility] Comment on above: Performed By: #### A CET, SALYC #### [facility] [address] [place] [address] Dr. Ibis Jimenez IG % 0.5 % Normal 0.0-0.5 [facility] Comment on above: Performed By: #### A CET, SALYC #### [facility] [address] [place] [address] Dr. Ibis Jimenez LYMPH # 2.6 103/ul Normal 1.2-3.8 [facility] Comment on above: Performed By: #### A CET, SALYC #### [facility] [address] [place] [address] Dr. Ibis Jimenez Lymphocytes/100 WBC (Bld) 23.8 % Normal 20.5-60.0 [facility] Comment on above: Performed By: #### A CET, SALYC #### [facility] [address] [place] [address] Dr. Ibis Jimenez MANUAL DIFF REQ NO Normal [facility] Comment on above: Performed By: #### A CET, SALYC #### [facility] [address] [place] [address] Dr. Ibis Jimenez MCH (RBC) [Entitic mass] 28.8 pg Normal 26.7-34.0 [facility] Comment on above: Performed By: #### A CET, SALYC #### [facility] [address] [place] [address] Dr. Ibis Jimenez MCHC (RBC) [Mass/Vol] 33.8 g/dL Normal 29.9-35.2 [facility] Comment on above: Performed By: #### A CET, SALYC #### [facility] [address] [place] [address] Dr. Ibis Jimenez MCV (RBC) [Entitic vol] 85.2 fL Normal 81.0-99.0 [facility] Comment on above: Performed By: #### A CET, SALYC #### [facility] [address] [place] [address] Dr. Ibis Jimenez MONO # 0.8 103/ul Normal 0.3-0.8 [facility] Comment on above: Performed By: #### A CET, SALYC #### [facility] [address] [place] [address] Dr. Ibis Jimenez Monocytes/100 WBC (Bld) 7.7 % Normal 1.7-12.0 [facility] Comment on above: Performed By: #### A CET, SALYC #### [facility] [address] [place] [address] Dr. Ibis Jimenez NEUT # 7.4 103/ul Critically high 1.4-6.5 [facility] Comment on above: Performed By: #### A CET, SALYC #### [facility] [address] [place] [address] Dr. Ibis Jimenez Neutrophils/100 WBC (Bld) 67.4 % Normal 43.0-75.0 [facility] Comment on above: Performed By: #### A CET, SALYC #### [facility] [address] [place] [address] Dr. Ibis Jimenez Platelet mean volume (Bld) [Entitic vol] 9.8 fL Normal 9.5-13.5 [facility] Comment on above: Performed By: #### A CET, SALYC #### [facility] [address] [place] [address] Dr. Ibis Jimenez PLT 261 103/ul Normal 150-450 [facility] Comment on above: Performed By: #### A CET, SALYC #### [facility] [address] [place] [address] Dr. Ibis Jimenez RBC 4.66 106/ul Normal 4.20-5.40 [facility] Comment on above: Performed By: #### A CET, SALYC #### [facility] [address] [place] [address] Dr. Ibis Jimenez WBC 10.9 103/ul Normal 4.0-11.0 [facility] Comment on above: Performed By: #### A CET, SALYC #### [facility] [address] [place] [address] Dr. Ibis Jimenez PROF CHEM 8 (BAS METB)on Anion gap [Moles/Vol] 14.1 mmol/L Normal [facility] [place] Comment on above: Performed By: #### B MP #### [facility] [address] [place] [address] Dr. Ibis Jimenez Calcium [Mass/Vol] 8.5 mg/dL Normal 8.5-10.1 [facility] Comment on above: Performed By: #### B MP #### [facility] [address] [place] [address] Dr. Ibis Jimenez Chloride [Moles/Vol] 103 mmol/L Normal 98-107 [facility] Comment on above: Performed By: #### B MP #### [facility] [address] [place] [address] Dr. Ibis Jimenez CO2 [Moles/Vol] 22.5 mmol/L Normal 21.0-32.0 [facility] Comment on above: Performed By: #### B MP #### [facility] [address] [place] [address] Dr. Ibis Jimenez Creatinine [Mass/Vol] 0.64 mg/dL Normal 0.55-1.02 [facility] Comment on above: Performed By: #### B MP #### [facility] [address] [place] [address] Dr. Ibis Jimenez EGFR-AF SWAZI >60 Normal >=60 [facility] Comment on above: Performed By: #### B MP #### [facility] [address] [place] [address] Dr. Ibis Jimenez EGFR-NON AF SWAZI >60 Normal >=60 [facility] Comment on above: Performed By: #### B MP #### [facility] [address] [place] [address] Dr. Ibis Jimenez Glucose [Mass/Vol] 141 mg/dL Critically high 74-106 [facility] Comment on above: Performed By: #### B MP #### [facility] [address] [place] [address] Dr. Ibis Jimenez Potassium [Moles/Vol] 3.6 mmol/L Normal 3.5-5.1 [facility] Comment on above: Performed By: #### B MP #### [facility] [address] [place] [address] Dr. Ibis Jimenez Sodium [Moles/Vol] 136 mmol/L Normal 136-145 [facility] Comment on above: Performed By: #### B MP #### [facility] [address] [place] [address] Dr. Ibis Jimenez Urea nitrogen [Mass/Vol] 16.0 mg/dL Normal 7.0-18.0 [facility] Comment on above: Performed By: #### B MP #### [facility] [address] [place] [address] Dr. Ibis Jimenez Urea nitrogen/Creatinine [Mass ratio] 25.0 mg/mg Normal [facility] Comment on above: Performed By: #### B MP #### [facility] [address] [place] [address] Dr. Ibis Jimenez CBC AUTO DIFFon 11-04-2021 BASO # 0.0 103/ul Normal 0.0-0.1 [facility] Comment on above: Performed By: #### A CET, SALYC #### [facility] [address] [place] [address] Dr. Ibis Jimenez Basophils/100 WBC (Bld) 0.4 % Normal 0.2-2.0 [facility] Comment on above: Performed By: #### A CET, SALYC #### [facility] [address] [place] [address] Dr. Ibis Jimenez EO # 0.2 103/ul Normal 0.0-0.7 [facility] Comment on above: Performed By: #### A CET, SALYC #### [facility] [address] [place] [address] Dr. Ibis Jimenez Eosinophils/100 WBC (Bld) 4.1 % Normal 0.9-7.0 [facility] Comment on above: Performed By: #### A CET, SALYC #### [facility] [address] [place] [address] Dr. Ibis Jimenez Erythrocyte distribution width (RBC) [Ratio] 13.2 % Normal 11.0-15.0 [facility] Comment on above: Performed By: #### A CET, SALYC #### [facility] [address] [place] [address] Dr. Ibis Jimenez Hematocrit (Bld) [Volume fraction] 34.3 % Critically low 36.0-48.0 [facility] Comment on above: Performed By: #### A CET, SALYC #### [facility] [address] [place] [address] Dr. Ibis Jimenez Hemoglobin (Bld) [Mass/Vol] 11.5 g/dL Critically low 12.0-16.0 [facility] Comment on above: Performed By: #### A CET, SALYC #### [facility] [address] [place] [address] Dr. Ibis Jimenez IG # 0.01 10e3/ul Normal 0.00-0.03 [facility] Comment on above: Performed By: #### A CET, SALYC #### [facility] [address] [address] [address] Ibis Jimenez IG % 0.2 % Normal 0.0-0.5 [facility] Comment on above: Performed By: #### A CET, SALYC #### [facility] [address] [address] [address] Ibis Jimenez LYMPH # 1.5 103/ul Normal 1.2-3.8 [facility] Comment on above: Performed By: #### A CET, SALYC #### [facility] [address] [place] [address] Dr. Ibis Jimenez Lymphocytes/100 WBC (Bld) 26.4 % Normal 20.5-60.0 [facility] Comment on above: Performed By: #### A CET, SALYC #### [facility] [address] [place] [address] Dr. Ibis Jimenez MANUAL DIFF REQ NO Normal [facility] Comment on above: Performed By: #### A CET, SALYC #### [facility] [address] [place] [address] Dr. Ibis Jimenez MCH (RBC) [Entitic mass] 28.8 pg Normal 26.7-34.0 [facility] Comment on above: Performed By: #### A CET, SALYC #### [facility] [address] [place] [address] Dr. Ibis Jimenez MCHC (RBC) [Mass/Vol] 33.5 g/dL Normal 29.9-35.2 [facility] Comment on above: Performed By: #### A CET, SALYC #### [facility] [address] [place] [address] Dr. Ibis Jimenez MCV (RBC) [Entitic vol] 86.0 fL Normal 81.0-99.0 [facility] Comment on above: Performed By: #### A CET, SALYC #### [facility] [address] [place] [address] Dr. Ibis Jimenez MONO # 0.5 103/ul Normal 0.3-0.8 [facility] Comment on above: Performed By: #### A CET, SALYC #### [facility] [address] [address] [address] Ibis Jimenez Monocytes/100 WBC (Bld) 8.2 % Normal 1.7-12.0 [facility] Comment on above: Performed By: #### A CET, SALYC #### [facility] [address] [place] [address] Dr. Ibis Jimenez NEUT # 3.4 103/ul Normal 1.4-6.5 [facility] Comment on above: Performed By: #### A CET, SALYC #### [facility] [address] [place] [address] Dr. Ibis Jimenez Neutrophils/100 WBC (Bld) 60.7 % Normal 43.0-75.0 [facility] Comment on above: Performed By: #### A CET, SALYC #### [facility] [address] [place] [address] Dr. Ibis iJmenez Platelet mean volume (Bld) [Entitic vol] 9.9 fL Normal 9.5-13.5 [facility] Comment on above: Performed By: #### A CET, SALYC #### [facility] [address] [place] [address] Dr. Ibis Jimenez PLT 222 103/ul Normal 150-450 [facility] Comment on above: Performed By: #### A CET, SALYC #### [facility] [address] [place] [address] Dr. Ibis Jimenez RBC 3.99 106/ul Critically low 4.20-5.40 [facility] Comment on above: Performed By: #### A CET, SALYC #### [facility] [address] [place] [address] Dr. Ibis Jimenez WBC 5.6 103/ul Normal 4.0-11.0 [facility] Comment on above: Performed By: #### A CET, SALYC #### [facility] [address] [place] [address] Dr. Ibis Jimenez PROF CHEM 8 (BAS METB)on Anion gap [Moles/Vol] 10.5 mmol/L Normal [facility] Comment on above: Performed By: #### B MP #### [facility] [address] [address] [address] Ibis Jimenez Calcium [Mass/Vol] 8.8 mg/dL Normal 8.5-10.1 [facility] Comment on above: Performed By: #### B MP #### [facility] [address] [address] [address] Ibis Jimenez Chloride [Moles/Vol] 105 mmol/L Normal 98-107 [facility] Comment on above: Performed By: #### B MP #### [facility] [address] [address] [address] Ibis Jimenez CO2 [Moles/Vol] 24.9 mmol/L Normal 21.0-32.0 [facility] Comment on above: Performed By: #### B MP #### [facility] [address] [place] [address] Dr. Ibis Jimenez Creatinine [Mass/Vol] 0.71 mg/dL Normal 0.55-1.02 [facility] Comment on above: Performed By: #### B MP #### [facility] [address] [place] [address] Dr. Ibis Jimenez EGFR-AF SWAZI >60 Normal >=60 [facility] Comment on above: Performed By: #### B MP #### [facility] [address] [address] [address] Ibis Jimenez EGFR-NON AF SWAZI >60 Normal >=60 [facility] Comment on above: Performed By: #### B MP #### [facility] [address] [address] [address] Ibis Jimenez Glucose [Mass/Vol] 103 mg/dL Normal 74-106 [facility] Comment on above: Performed By: #### B MP #### [facility] [address] [place] [address] Dr. Ibis Jimenez Potassium [Moles/Vol] 3.4 mmol/L Critically low 3.5-5.1 [facility] Comment on above: Performed By: #### B MP #### [facility] [address] [place], [place] [address] Dr. Ibis Jimenez Sodium [Moles/Vol] 137 mmol/L Normal 136-145 [facility] Comment on above: Performed By: #### B MP #### [facility] [address] [place], [place] [address] Dr. Ibis Jimenez Urea nitrogen [Mass/Vol] 17.0 mg/dL Normal 7.0-18.0 [facility] Comment on above: Performed By: #### B MP #### [facility] [address] [place], [place] [address] Dr. Ibis Jimenez Urea nitrogen/Creatinine [Mass ratio] 23.9 mg/mg Normal [facility] Comment on above: Performed By: #### B MP #### [facility] [address] [place], [place] [address] Dr. Ibis Jimenez Basic Metab w/rfx MGon 10-20 (cont.) Normal [facility] Comment on above: Result Comment: Aver age GFR for 20-29 years old: 116 mL/min/1.73sq m Chronic Kidney Disease: <60 mL/min/1.73sq m Kidney failure: <15 mL/min/1.73sq m eGFR calculated using average adult body mass. Additional eGFR calculator available at: http://www.[employer]/multiple_crcl_2012.htm Performed By: #### B MPX #### [facility] [employer] [address] [place], [place] [id number] [employer] Surface: Tavon Nicole MD Anion gap [Moles/Vol] 10 mmol/L Normal 9-17 [facility] Comment on above: Performed By: #### B MPX #### [facility] [address] [place] [id number] [employer] Surface: Tavon Nicole MD Calcium [Mass/Vol] 7.8 mg/dL Low 8.6-10.4 [facility] Comment on above: Performed By: #### B MPX #### [address] [address] [employer] Surface: Tavon Nicole MD Chloride [Moles/Vol] 109 mmol/L High 98-107 [facility] Comment on above: Performed By: #### B MPX #### [address] [address] [employer] Surface: Tavon Nicole MD CO2 [Moles/Vol] 20 mmol/L Normal 20-31 [facility] Comment on above: Performed By: #### B MPX #### [address] [address] [employer] Surface: Tavon Nicole MD Creatinine [Mass/Vol] 0.45 mg/dL Low 0.50-0.90 [facility] Comment on above: Performed By: #### B MPX #### [address] [address] [employer] Operator Surface: Tavon Nicole MD GFR, Amer >60 Normal >60 [facility] Comment on above: Performed By: #### B MPX #### [address] [address] [employer] Operator Surface: Tavon Nicole MD GFR,non Amer >60 Normal >60 [facility] Comment on above: Performed By: #### B MPX #### [address] [address] [employer] Operator Surface: Tavon Nicole MD Glucose [Mass/Vol] 84 mg/dL Normal 70-99 [facility] Comment on above: Performed By: #### B MPX #### [address] [address] [employer] Operator Surface: Tavon Nicole MD Potassium [Moles/Vol] 4.1 mmol/L Normal 3.7-5.3 [facility] Comment on above: Result Comment: SPEC IMEN SLIGHTLY HEMOLYZED, RESULTS MAY BE ADVERSELY AFFECTED. Performed By: #### B MPX #### [facility] [address] [place], [place] [id number] [employer] Operator Surface: Tavon Nicole MD Sodium [Moles/Vol] 139 mmol/L Normal 135-144 [facility] Comment on above: Performed By: #### B MPX #### [facility] [address] [place], [place] [id number] [employer] Operator Surface: Tavon Nicole MD Urea nitrogen [Mass/Vol] 8 mg/dL Normal 6-20 [facility] Comment on above: Performed By: #### B MPX #### [facility] [address] [place], [place] [id number] [employer] Operator Surface: Tavon Nicole MD Basic Metabolic Panel w/ Ref rossi to MG 10-20-2021 Anion gap [Moles/Vol] 10 mmol/L 9 - 17 mmol/L [facility] Calcium [Mass/Vol] 7.8 mg/dL Low 8.6 - 10. 4 mg/dL [facility] Chloride [Moles/Vol] 109 mmol/L High 98 - 10 7 mmol/L [facility] CO2 [Moles/Vol] 20 mmol/L 20 - 31 mmol/L [facility] Creatinine [Mass/Vol] 0.45 mg/dL Low 0.5 - 0.9 mg/dL [facility] GFR >60 60 - PI NF mL/min [facility] GFR Non- >60 60 - PINF mL/min [facility] GFR/1.73 sq M.predicted MDRD (S/P/Bld) [Vol rate/Area] [facility] Comment on above: Average GFR for 20-2 9 years old: 116 mL/min/1.73sq m Chronic Kidney Disease: <60 mL/min/1.73sq m Kidney failure: <15 mL/min/1.73sq m eGFR calculated using average adult body mass. Additional eGFR calculator available at: http://www.[employer]e.com/multiple_crcl_2012.htm Glucose [Mass/Vol] 84 mg/dL 70 - 99 mg/dL [facility] Interpretation and review of laboratory results Abnormal [facility] Potassium [Moles/Vol] 4.1 mmol/L 3.7 - 5.3 mmol/L [facility] Comment on above: SPECIMEN SLIGHTLY HE MOLYZED, RESULTS MAY BE ADVERSELY AFFECTED. Sodium [Moles/Vol] 139 mmol/L 135 - 144 mmol/L [facility] Urea nitrogen (BldV) [Mass/Vol] 8 mg/dL 6 - 20 mg/dL [facility] CBC with Auto Differentialon 10-20-2021 Absolute Eos # 0.15 [place] [facility] Absolute Immature Granulocyte [facility] Absolute Lymph # 1.48 [facility] Absolute [place] # 0.28 [facility] Basophils (Bld) [#/Vol] 0.03 10*3/uL [facility] Basophils/100 WBC (Bld) 1 % 0 - 2 % [facility] Eosinophils/100 WBC (Bld) 3 % 1 - 4 % [facility] Hematocrit (Bld) [Volume fraction] 35.5 % Low 36.3 - 47.1 % [facility] Hemoglobin (Bld) [Mass/Vol] 11.3 g/dL Low 11.9 - 15.1 g/dL [facility] Immature granulocytes/100 WBC (Bld) 0 % 0 [facility] Interpretation and review of laboratory results Abnormal [facility] Lymphocytes/100 WBC (Bld) 34 % 24 - 43 % [facility] MCH (RBC) [Entitic mass] 27.9 pg 25.2 - 33.5 pg [facility] MCHC (RBC) [Mass/Vol] 31.8 g/dL 28.4 - 34.8 g/dL [facility] MCV (RBC) [Entitic vol] 87.7 fL 82.6 - 102.9 fL [facility] Monocytes/100 WBC (Bld) 6 % 3 - 12 % [facility] NRBC Automated 0.0 0.0 per 100 WBC [facility] Platelet distribution width (Bld) [Ratio] 12.9 % 11.8 - 14.4 % [facility] Platelets (Bld) [#/Vol] See Reflexed IPF Result [facility] RBC (Bld) [#/Vol] 4.05 10*6/uL 3.95 - 5.1 1 m/uL [facility] Segmented neutrophils/100 WBC (Bld) 55 % 36 - 65 % [facility] Segs Absolute 2.42 [facility] WBC (Bld) [#/Vol] 4.4 10*3/uL [facility] CBC with Diffon 10-20-2021 Abs. Basophil 0.03 k/uL Normal 0.00-0.20 [facility] Comment on above: Performed By: #### C DP, IPF #### [place] [address] [employer] Surface: Tavon Nicole MD Abs.Imm.Granulocyte <0.03 Normal 0.00-0.30 [facility] Comment on above: Performed By: #### C DP, IPF #### [place] [address] [employer] Surface: Tavon Nicole MD Abs.Neutrophil (Seg) 2.42 k/uL Normal 1.50-8.10 [facility] Comment on above: Performed By: #### C DP, IPF #### [place] [address] [employer] Operator Surface: Tavon Nicole MD Basophils/100 WBC (Bld) 1 % Normal 0-2 [facility] Comment on above: Performed By: #### C DP, IPF #### [place] [address] [employer] Operator Surface: Tavon Nicole MD Eosinophils (Bld) [#/Vol] 0.15 10*3/uL Normal 0.00-0.44 [facility] Comment on above: Performed By: #### C DP, IPF #### [address] [address] [employer] Operator Surface: Tavon Nicole MD Eosinophils/100 WBC (Bld) 3 % Normal 1-4 [facility] Comment on above: Performed By: #### C DP, IPF #### [address] [address] [employer] Operator Surface: Tavon Nicole MD Immature granulocytes/100 WBC (Bld) 0 % Normal 0 [facility] Comment on above: Performed By: #### C DP, IPF #### [address] [address] [employer] Operator Surface: Tavon Nicole MD Lymphocytes (Bld) [#/Vol] 1.48 10*3/uL Normal 1.10-3.70 [facility] Comment on above: Performed By: #### C DP, IPF #### [address] [address] [employer] Operator Surface: Tavon Nicole MD Lymphocytes/100 WBC (Bld) 34 % Normal 24-43 [facility] Comment on above: Performed By: #### C DP, IPF #### [address] [address] [employer] Operator Surface: Tavon Nicole MD Monocytes (Bld) [#/Vol] 0.28 10*3/uL Normal 0.10-1.20 [facility] Comment on above: Performed By: #### C DP, IPF #### [address] [address] [employer] Operator Surface: Tavon Nicole MD Monocytes/100 WBC (Bld) 6 % Normal 3-12 [facility] Comment on above: Performed By: #### C DP, IPF #### [address] [address] [employer] Operator Surface: Tavon Nicole MD Neutrophil (Seg) 55 % Normal 36-65 [facility] Comment on above: Performed By: #### C DP, IPF #### [address] [address] [employer] Operator Surface: Tavon Nicole MD Erythrocyte distribution width (RBC) [Ratio] 12.9 % Normal 11.8-14.4 [facility] Comment on above: Performed By: #### C DP, IPF #### [address] [address] [employer] Operator Surface: Tavon Nicole MD Hematocrit (Bld) [Volume fraction] 35.5 % Low 36.3-47.1 [facility] Comment on above: Performed By: #### C DP, IPF #### [address] [address] [employer] Operator Surface: Tavon Nicole MD Hemoglobin (Bld) [Mass/Vol] 11.3 g/dL Low 11.9-15.1 [facility] Comment on above: Performed By: #### C DP, IPF #### [address] [address] [employer] Operator Surface: Tavon Nicole MD MCH (RBC) [Entitic mass] 27.9 pg Normal 25.2-33.5 [facility] Comment on above: Performed By: #### C DP, IPF #### [address] [address] [employer] Operator Surface: Tavon Nicole MD MCHC (RBC) [Mass/Vol] 31.8 g/dL Normal 28.4-34.8 [facility] Comment on above: Performed By: #### C DP, IPF #### [address] [address] [employer] Operator Surface: Tavon Nicole MD MCV (RBC) [Entitic vol] 87.7 fL Normal 82.6-102.9 [facility] Comment on above: Performed By: #### C DP, IPF #### [address] [address] [employer] Operator Surface: Tavon Nicole MD NRBC Automated 0.0 per 100 WBC Normal 0.0 [facility] Comment on above: Performed By: #### C DP, IPF #### [address] [address] [employer] Operator Surface: Tavon Nicole MD Platelet Count See Reflexed IPF Result Normal 138-453 [facility] Comment on above: Performed By: #### C DP, IPF #### [address] [address] [employer] Operator Surface: Tavon Nicole MD RBC (Bld) [#/Vol] 4.05 10*6/uL Normal 3.95-5.11 [facility] Comment on above: Performed By: #### C DP, IPF #### [address] [address] [employer] Operator Surface: Tavon Nicole MD WBC (Bld) [#/Vol] 4.4 10*3/uL Normal 3.5-11.3 [facility] Comment on above: Performed By: #### C DP, IPF #### [address] [address] [employer] Operator Surface: Tavon Nicole MD EEG video monitoringon 10-20 Raiza Land MD 10/20/2021 12:11 PM Referring physician: Chris Blanchard APRN Date:10/20/2021 Start Time:10/19/2021 @1258 End Time: 10/20/2021 @ 1200 Indication Patient with recurrent events Introduction This continuous video-EEG was acquired using a [employer] workstation at 256 samples/s. Electrodes were placed [...] Certified. Neurology Board Certified. Electronically Signed [facility] Work Phone: EEG video monitoringOrdered By: Raiza Land on 10-20-2021 [facility] Work Phone: Immature Platelet Fractionon 10-20-2021 Platelet, Fluorescence Platelet clumps present, count appears adequate. [facility] PLT, Immature Fract.on 10-20 Platelet, Fluoresc. Platelet clumps present, count appears adequate. Normal 138-453 [facility] Comment on above: Performed By: #### C DP, IPF #### [facility] [address] [place] [address] [employer]fill Operator Surface: Tavon Nicole MD PROLACTINon 10-20-2021 Prolactin 41.7 ng/mL Critically high 4.8-23.3 [facility] Comment on above: Performed By: #### C VDTBH #### [facility] [address] [place], [place] [address] Dr. Ibis Jimenez CBCon 10-19-2021 Erythrocyte distribution width (RBC) [Ratio] 12.9 % Normal 11.8-14.4 [facility] Comment on above: Performed By: #### T ROPI, LACTIC, CMPX, CBC #### [facility] [address] [place] [address] [employer] Operator Surface: Tavon Nicole MD Hematocrit (Bld) [Volume fraction] 31.5 % Low 36.3-47.1 [facility] Comment on above: Performed By: #### T ROPI, LACTIC, CMPX, CBC #### [facility] [address] [place] [address] [employer] Operator Surface: Tavon Nicole MD Hemoglobin (Bld) [Mass/Vol] 10.8 g/dL Low 11.9-15.1 [facility] Comment on above: Performed By: #### T ROPI, LACTIC, CMPX, CBC #### [facility] [address] [place] [address] [employer] Operator Surface: Tavon Nicole MD MCH (RBC) [Entitic mass] 29.1 pg Normal 25.2-33.5 [facility] Comment on above: Performed By: #### T ROPI, LACTIC, CMPX, CBC #### [facility] [employer] [address] [place] [address] [employer] Operator Surface: Tavon Nicole MD MCHC (RBC) [Mass/Vol] 34.3 g/dL Normal 28.4-34.8 [facility] Comment on above: Performed By: #### T ROPI, LACTIC, CMPX, CBC #### [facility] [employer] [address] [place] [address] Sand[employer] Operator Surface: Tavon Nicole MD MCV (RBC) [Entitic vol] 84.9 fL Normal 82.6-102.9 [facility] Comment on above: Performed By: #### T ROPI, LACTIC, CMPX, CBC #### [facility] [employer] [address] [place] [address] Sandfill Operator Surface: Tavon Nicole MD NRBC Automated 0.0 per 100 WBC Normal 0.0 [facility] Comment on above: Performed By: #### T ROPI, LACTIC, CMPX, CBC #### [facility] [employer] [address] [place] [address] [employer] Operator Surface: Tavon Nicole MD Platelet mean volume (Bld) [Entitic vol] 9.8 fL Normal 8.1-13.5 [facility] Comment on above: Performed By: #### T ROPI, LACTIC, CMPX, CBC #### [facility] [employer] [address] [place] [address] [employer] Operator Surface: Tavon Nicole MD Platelets (Bld) [#/Vol] 281 10*3/uL Normal 138-453 [facility] Comment on above: Performed By: #### T ROPI, LACTIC, CMPX, CBC #### [facility] [employer] [address] [place] [address] [employer] Operator Surface: Tavon Nicole MD RBC (Bld) [#/Vol] 3.71 10*6/uL Low 3.95-5.11 [facility] Comment on above: Performed By: #### T ROPI, LACTIC, CMPX, CBC #### [facility] [employer] [address] [place] [address] [employer] Operator Surface: Tavon Nicole MD WBC (Bld) [#/Vol] 5.0 10*3/uL Normal 3.5-11.3 [facility] Comment on above: Performed By: #### T ROPI, LACTIC, CMPX, CBC #### [facility] [employer] [address] [place] [address] [employer] Operator Surface: Tavon Nicole MD Hematocrit (Bld) [Volume fraction] 31.5 % Low 36.3 - 47.1 % [facility] Hemoglobin (Bld) [Mass/Vol] 10.8 g/dL Low 11.9 - 15.1 g/dL [facility] Interpretation and review of laboratory results Abnormal [facility] MCH (RBC) [Entitic mass] 29.1 pg 25.2 - 33.5 pg [facility] MCHC (RBC) [Mass/Vol] 34.3 g/dL 28.4 - 34.8 g/dL [facility] MCV (RBC) [Entitic vol] 84.9 fL 82.6 - 102.9 fL [facility] NRBC Automated 0.0 0.0 per 100 WBC [facility] Platelet distribution width (Bld) [Ratio] 12.9 % 11.8 - 14.4 % [facility] Platelet mean volume (Bld) [Entitic vol] 9.8 fL 8.1 - 13.5 fL [facility] Platelets (Bld) [#/Vol] 281 10*3/uL [facility] RBC (Bld) [#/Vol] 3.71 10*6/uL Low 3.95 - 5.1 1 m/uL [facility] WBC (Bld) [#/Vol] 5.0 10*3/uL [facility] CBC AUTO DIFFon 10-19-2021 EO # 0.2 103/ul Normal 0.0-0.7 [facility] Comment on above: Performed By: #### A MM #### [facility] [address] [place] [address] Dr. Ibis Jimenez Eosinophils/100 WBC (Bld) 3.9 % Normal 0.9-7.0 [facility] Comment on above: Performed By: #### A MM #### [facility] [address] [place] [address] [address] Ibis Jimenez Erythrocyte distribution width (RBC) [Ratio] 13.1 % Normal 11.0-15.0 [facility] Comment on above: Performed By: #### A MM #### [facility] [address] [place] [address] Dr. Ibis Jimenez Hematocrit (Bld) [Volume fraction] 33.4 % Critically low 36.0-48.0 [facility] Comment on above: Performed By: #### A MM #### [facility] [address] [place] [address] Dr. Ibis Jimenez Hemoglobin (Bld) [Mass/Vol] 11.1 g/dL Critically low 12.0-16.0 [facility] Comment on above: Performed By: #### A MM #### [facility] [address] [place] [address] Dr. Ibis Jimenez LYMPH # 1.2 103/ul Normal 1.2-3.8 [facility] Comment on above: Performed By: #### A MM #### [facility] [address] [place] [address] Dr. Ibis Jimenez Lymphocytes/100 WBC (Bld) 25.9 % Normal 20.5-60.0 [facility] Comment on above: Performed By: #### A MM #### [facility] [address] [place] [address] Dr. Ibis Jimenez MCHC (RBC) [Mass/Vol] 33.2 g/dL Normal 29.9-35.2 [facility] Comment on above: Performed By: #### A MM #### [facility] [address] [place] [address] Dr. Ibis Jimenez MCV (RBC) [Entitic vol] 85.9 fL Normal 81.0-99.0 [facility] Comment on above: Performed By: #### A MM #### [facility] [address] [place] [address] Dr. Ibis Jimenez Monocytes/100 WBC (Bld) 7.7 % Normal 1.7-12.0 [facility] Comment on above: Performed By: #### A MM #### [facility] [address] [place] [address] Dr. Ibis Jimenez NEUT # 2.9 103/ul Normal 1.4-6.5 [facility] Comment on above: Performed By: #### A MM #### [facility] [address] [place] [address] Dr. Ibis Jimenez Neutrophils/100 WBC (Bld) 61.5 % Normal 43.0-75.0 [facility] Comment on above: Performed By: #### A MM #### [facility] [address] [place] [address] [address] Ibis Jimenez PLT 264 103/ul Normal 150-450 [facility] Comment on above: Performed By: #### A MM #### [facility] [address] [place] [address] [address] Ibis Jimenez RBC 3.89 106/ul Critically low 4.20-5.40 [facility] Comment on above: Performed By: #### A MM #### [facility] [address] [place] [address] Dr. Ibis Jimenez WBC 4.7 103/ul Normal 4.0-11.0 [facility] Comment on above: Performed By: #### A MM #### [facility] [address] [place] [address] Dr. Ibis Jimenez BASO # 0.0 103/ul Normal 0.0-0.1 [facility] Comment on above: Performed By: #### A MM #### [facility] [address] [place] [address] Dr. Ibis Jimenez Performed By: #### C VDTBH #### [facility] [address] [place] [address] Dr. Ibis Jimenez Basophils/100 WBC (Bld) 0.6 % Normal 0.2-2.0 [facility] Comment on above: Performed By: #### A MM #### [facility] [address] [place] [address] Dr. Ibis Jimenez Performed By: #### C VDTBH #### [facility] [address] [place] [address] Dr. Ibis Jimenez EO # 0.3 103/ul Normal 0.0-0.7 [facility] Comment on above: Performed By: #### C VDTBH #### [facility] [address] [place] [address] Dr. Ibis Jimenez Eosinophils/100 WBC (Bld) 5.0 % Normal 0.9-7.0 [facility] Comment on above: Performed By: #### C VDTBH #### [facility] [address] [place] [address] Dr. Ibis Jimenez Erythrocyte distribution width (RBC) [Ratio] 12.8 % Normal 11.0-15.0 [facility] Comment on above: Performed By: #### C VDTBH #### [facility] [address] [place] [address] Dr. Ibis Jimenez Hematocrit (Bld) [Volume fraction] 38.0 % Normal 36.0-48.0 [facility] Comment on above: Performed By: #### C VDTBH #### [facility] [address] [place] [address] Dr. Ibis Jimenez Hemoglobin (Bld) [Mass/Vol] 12.7 g/dL Normal 12.0-16.0 [facility] Comment on above: Performed By: #### C VDTBH #### [facility] [address] [place] [address] Dr. Ibis Jimenez IG # 0.02 10e3/ul Normal 0.00-0.03 [facility] Comment on above: Performed By: #### A MM #### [facility] [address] [place] [address] Dr. Ibis Jimenez Performed By: #### C VDTBH #### [facility] [address] [place] [address] Dr. Ibis Jimenez IG % 0.4 % Normal 0.0-0.5 [facility] Comment on above: Performed By: #### A MM #### [facility] [address] [place] [address] Dr. Ibis Jimenez Performed By: #### C VDTBH #### [facility] [address] [place] [address] Dr. Ibis Jimenez LYMPH # 1.7 103/ul Normal 1.2-3.8 [facility] Comment on above: Performed By: #### C VDTBH #### [facility] [address] [place] [address] Dr. Ibis Jimenez Lymphocytes/100 WBC (Bld) 30.7 % Normal 20.5-60.0 [facility] Comment on above: Performed By: #### C VDTBH #### [facility] [address] [place] [address] Dr. Ibis Jimenez MANUAL DIFF REQ NO Normal [facility] Comment on above: Performed By: #### A MM #### [facility] [address] [place] [address] Dr. Ibis Jimenez Performed By: #### C VDTBH #### [facility] [address] [place] [address] Dr. Ibis Jimenez MCH (RBC) [Entitic mass] 28.5 pg Normal 26.7-34.0 [facility] Comment on above: Performed By: #### A MM #### [facility] [address] [place] [address] Dr. Ibis Jimenez Performed By: #### C VDTBH #### [facility] [address] [place] [address] Dr. Ibis Jimenez MCHC (RBC) [Mass/Vol] 33.4 g/dL Normal 29.9-35.2 [facility] Comment on above: Performed By: #### C VDTBH #### [facility] [address] [place] [address] Dr. Ibis Jimenez MCV (RBC) [Entitic vol] 85.2 fL Normal 81.0-99.0 [facility] Comment on above: Performed By: #### C VDTBH #### [facility] [address] [place] [address] Dr. Ibis Jimenez MONO # 0.4 103/ul Normal 0.3-0.8 [facility] Comment on above: Performed By: #### A MM #### [facility] [address] [place] [address] Dr. Ibis Jimenez Performed By: #### C VDTBH #### [facility] [address] [place] [address] Dr. Ibis Jimenez Monocytes/100 WBC (Bld) 8.1 % Normal 1.7-12.0 [facility] Comment on above: Performed By: #### C VDTBH #### [facility] [address] [place] [address] Dr. Ibis Jimenez NEUT # 3.0 103/ul Normal 1.4-6.5 [facility] Comment on above: Performed By: #### C VDTBH #### [facility] [address] [place] [address] Dr. Ibis Jimenez Neutrophils/100 WBC (Bld) 55.2 % Normal 43.0-75.0 [facility] Comment on above: Performed By: #### C VDTBH #### [facility] [address] [place] [address] Dr. Ibis Jimenez Platelet mean volume (Bld) [Entitic vol] 9.5 fL Normal 9.5-13.5 [facility] Comment on above: Performed By: #### A MM #### [facility] [address] [place] [address] Dr. Ibis Jimenez Performed By: #### C VDTBH #### [facility] [address] [place] [address] Dr. Ibis Jimenez PLT 343 103/ul Normal 150-450 [facility] Comment on above: Performed By: #### C VDTBH #### [facility] [address] [place] [address] Dr. Ibis iJmenez RBC 4.46 106/ul Normal 4.20-5.40 [facility] Comment on above: Performed By: #### C VDTBH #### [facility] [address] [place] [address] Dr. Ibis Jimenez WBC 5.4 103/ul Normal 4.0-11.0 [facility] Comment on above: Performed By: #### C VDTBH #### [facility] [address] [place] [address] HEAD WO CONon [...] REYNOLDS Date: 2021-10-19 07:31 Normal [facility] Comp Metabolic Pr/rfx MGon 0 10-19-2021 (cont.) Normal [facility] Comment on above: Result Comment: Aver age GFR for 20-29 years old: 116 mL/min/1.73sq m Chronic Kidney Disease: <60 mL/min/1.73sq m Kidney failure: <15 mL/min/1.73sq m eGFR calculated using average adult body mass. Additional eGFR calculator available at: http://www.[employer]/multiple_crcl_2011.htm Performed By: #### T ROPI, LACTIC, CMPX, CBC #### [facility] [address] [place] [address] [employer] Surface: Tavon Nicole MD Albumin [Mass/Vol] 3.5 g/dL Normal 3.5-5.2 [facility] Comment on above: Performed By: #### T ROPI, LACTIC, CMPX, CBC #### [facility] [address] [place] [address] [employer] Operator Surface: Tavon Nicole MD Albumin/Glob Ratio 1.4 Normal 1.0-2.5 [facility] Comment on above: Performed By: #### T ROPI, LACTIC, CMPX, CBC #### [facility] [address] [place] [address] [employer] Operator Surface: Tavon Nicole MD Alkaline Phos 69 U/L Normal 35-104 [facility] Comment on above: Performed By: #### T ROPI, LACTIC, CMPX, CBC #### [facility] [address] [place] [id number] Sandfill Operator Surface: Tavon Nicole MD ALT [Catalytic activity/Vol] 15 U/L Normal 5-33 [facility] Comment on above: Performed By: #### T ROPI, LACTIC, CMPX, CBC #### [facility] [address] [place] [id number] Sandfill Operator Surface: Tavon Nicole MD Anion gap [Moles/Vol] 13 mmol/L Normal 9-17 [facility] Comment on above: Performed By: #### T ROPI, LACTIC, CMPX, CBC #### [facility] [address] [place] [id number] Sandfill Operator Surface: Tavon Nicole MD AST [Catalytic activity/Vol] 12 U/L Normal <32 [facility] Comment on above: Performed By: #### T ROPI, LACTIC, CMPX, CBC #### [facility] [address] [place] [id number] Sandfill Operator Surface: Tavon Nicole MD Bilirubin [Mass/Vol] 0.24 mg/dL Low 0.3-1.2 [facility] Comment on above: Performed By: #### T ROPI, LACTIC, CMPX, CBC #### [facility] [address] [place] [id number] Sandfill Operator Surface: Tavon Nicole MD Calcium [Mass/Vol] 8.1 mg/dL Low 8.6-10.4 [facility] Comment on above: Performed By: #### T ROPI, LACTIC, CMPX, CBC #### [facility] [address] [place] [address] [id number] Sandfill Operator Surface: Tavon Nicole MD Chloride [Moles/Vol] 107 mmol/L Normal 98-107 [facility] Comment on above: Performed By: #### T ROPI, LACTIC, CMPX, CBC #### [facility] [address] [place] [phone] Sandfill Operator Surface: Tavon Nicole MD CO2 [Moles/Vol] 19 mmol/L Low 20-31 [facility] Comment on above: Performed By: #### T ROPI, LACTIC, CMPX, CBC #### [facility] [address] [place] [id number] Sandfill Operator Surface: Tavon Nicole MD Creatinine [Mass/Vol] 0.53 mg/dL Normal 0.50-0.90 [facility] Comment on above: Performed By: #### T ROPI, LACTIC, CMPX, CBC #### [facility] [address] [place] [address] [id number] Sandfill Operator Surface: Tavon Nicole MD GFR, Amer >60 Normal >60 [facility] Comment on above: Performed By: #### T ROPI, LACTIC, CMPX, CBC #### [facility] [address] [place] [address] [id number] Sandfill Operator Surface: Tavon Nicole MD GFR,non Amer >60 Normal >60 [facility] Comment on above: Performed By: #### T ROPI, LACTIC, CMPX, CBC #### [facility] [employer] [address] [place] [address] [id number] Sandfill Operator Surface: Tavon Nicole MD Glucose [Mass/Vol] 81 mg/dL Normal 70-99 [facility] Comment on above: Performed By: #### T ROPI, LACTIC, CMPX, CBC #### [facility] [address] [place] [address] [phone] Sandfill Operator Surface: Tavon Nicole MD Potassium [Moles/Vol] 3.9 mmol/L Normal 3.7-5.3 [facility] Comment on above: Performed By: #### T ROPI, LACTIC, CMPX, CBC #### [facility] [address] [place] [address] [phone] Sandfill Operator Surface: Tavon Nicole MD Protein [Mass/Vol] 6.0 g/dL Low 6.4-8.3 [facility] Comment on above: Performed By: #### T ROPI, LACTIC, CMPX, CBC #### [facility] [address], [place] [phone] Sandfill Operator Surface: Tavon Nicole MD Sodium [Moles/Vol] 139 mmol/L Normal 135-144 [facility] Comment on above: Performed By: #### T ROPI, LACTIC, CMPX, CBC #### [facility] [address], [place] [phone] Sandfill Operator Surface: Tavon Nicole MD Urea nitrogen [Mass/Vol] 10 mg/dL Normal 6-20 [facility] Comment on above: Performed By: #### T ROPI, LACTIC, CMPX, CBC #### [facility] [address], [place] [phone] Sandfill Operator Surface: Tavon Nicole MD Comprehensive Metabolic Pane l w/ Reflex to MGon 10-19-2021 Albumin [Mass/Vol] 3.5 g/dL 3.5 - 5.2 g/dL [facility] Albumin/Globulin [Mass ratio] 1.4 {ratio} 1 - 2.5 [facility] ALP (Bld) [Catalytic activity/Vol] 69 U/L 35 - 104 U/L [facility] ALT [Catalytic activity/Vol] 15 U/L 5 - 33 U/L [facility] Anion gap [Moles/Vol] 13 mmol/L 9 - 17 mmol/L [facility] AST [Catalytic activity/Vol] 12 U/L NINF - 32 U/L [facility] Bilirubin [Mass/Vol] 0.24 mg/dL Low 0.3 - 1 .2 mg/dL [facility] Calcium [Mass/Vol] 8.1 mg/dL Low 8.6 - 10. 4 mg/dL [facility] Chloride [Moles/Vol] 107 mmol/L 98 - 10 7 mmol/L [facility] CO2 [Moles/Vol] 19 mmol/L Low 20 - 31 mmol/L [facility] Creatinine [Mass/Vol] 0.53 mg/dL 0.5 - 0.9 mg/dL [facility] Free PSA/Total PSA [Mass fraction] 6.0 g/dL Low 6.4 - 8.3 g/dL [facility] GFR >60 60 - PI NF mL/min [facility] GFR Non- >60 60 - PINF mL/min [facility] GFR/1.73 sq M.predicted MDRD (S/P/Bld) [Vol rate/Area] [facility] Comment on above: Average GFR for 20-2 9 years old: 116 mL/min/1.73sq m Chronic Kidney Disease: <60 mL/min/1.73sq m Kidney failure: <15 mL/min/1.73sq m eGFR calculated using average adult body mass. Additional eGFR calculator available at: http://www.[employer]/multiple_crcl_2012.htm Glucose [Mass/Vol] 81 mg/dL 70 - 99 mg/dL [facility] Interpretation and review of laboratory results Abnormal [facility] Potassium [Moles/Vol] 3.9 mmol/L 3.7 - 5.3 mmol/L [facility] Sodium [Moles/Vol] 139 mmol/L 135 - 144 mmol/L [facility] Urea nitrogen (BldV) [Mass/Vol] 10 mg/dL 6 - 20 mg/dL [facility] Covid-19 PCR (CVDTBH)on 09-22 SARS-CoV-2 (COVID-19) RNA SAURABH+probe Ql (Unsp spec) Not detected Normal NOT DETECTED [facility] Comment on above: Result Comment: When [...] for this test is supported by the Nuclear [employer] Professor of Health and Human Service's declaration [...] used). Performed By: #### C VDTB #### [facility] [address] [place] [address] Dr. Ibis Jimenez DRUG SCREEN RAPID (URINE)on 10-19-2021 AMP Negative Normal NEGATIVE [facility] Comment on above: Performed By: #### B MP #### [facility] [address] [place] [address] Dr. Ibis Jimenez BAR Positive Abnormal NEGATIVE [facility] Comment on above: Performed By: #### B MP #### [facility] [address] [place] [address] Dr. Ibis Jimenez BUP Negative Normal NEGATIVE [facility] Comment on above: Performed By: #### B MP #### [facility] [address] [place] [address] Dr. Ibis Jimenez BZO Positive Abnormal NEGATIVE [facility] Comment on above: Performed By: #### B MP #### [facility] [address] [place] [address] Dr. Ibis Jimenez SEMAJ Negative Normal NEGATIVE [facility] Comment on above: Performed By: #### B MP #### [facility] [address] [place] [address] Dr. Ibis Jimenez CUT-OFFS SEE BELOW Normal [facility] Comment on above: Result Comment: AMP [...] ng/mL Performed By: #### B MP #### [facility] [address] [place] [address] Dr. Ibis Jimenez DRUG CUT HEADER DRUG CLASS TEST SYSTEM CUT-OFF CONCENTRATIONS ARE FOLLOWS: Normal [facility] Comment on above: Performed By: #### B MP #### [facility] [address] [place] [address] Dr. Ibis Jimenez mAMP Negative Normal NEGATIVE [facility] Comment on above: Performed By: #### B MP #### [facility] [address] [place] [address] Dr. Ibis Jimenez MTD Negative Normal NEGATIVE [facility] Comment on above: Performed By: #### B MP #### [facility] [address] [place] [address] Dr. Ibis Jimenez OPI Positive Abnormal NEGATIVE [facility] Comment on above: Performed By: #### B MP #### [facility] [address] [place] [address] Dr. Ibis Jimenez OXY Positive Abnormal NEGATIVE [facility] Comment on above: Performed By: #### B MP #### [facility] [address] [place] [address] Dr. Ibis Jimenez PCP Negative Normal NEGATIVE [facility] Comment on above: Performed By: #### B MP #### [facility] [address] [place] [address] Dr. Ibis Jimenez PPX Negative Normal NEGATIVE [facility] Comment on above: Performed By: #### B MP #### [facility] [address] [place] [address] Dr. Ibis Jimenez TCA Negative Normal NEGATIVE [facility] Comment on above: Performed By: #### B MP #### [facility] [address] [place] [address] Dr. Ibis Jimenez THC Negative Normal NEGATIVE [facility] Comment on above: Performed By: #### B MP #### [facility] [address] [address] [address] Ibis MELÉNDEZ URINE PROFILEon 2 Bilirubin Ql (U) Negative Normal NEGATIVE [facility] Comment on above: Performed By: #### B MP #### [facility] [address] [place] [address] Dr. Ibis Jimenez Clarity (U) CLEAR Normal CLEAR [facility] Comment on above: Performed By: #### B MP #### [facility] [address] [address] [address] Ibis Jimenez Color (U) YELLOW Normal YELLOW [facility] Comment on above: Performed By: #### B MP #### [facility] [address] [place] [address] Dr. Ibis RODRIGUEZ A micrscopic examination will be performed if indicated. Normal [facility] Comment on above: Performed By: #### B MP #### [facility] [address] [place] [address] Dr. Ibis Jimenez Glucose Ql (U) Negative Normal NEGATIVE [facility] Comment on above: Performed By: #### B MP #### [facility] [address] [place] [address] Dr. Ibis Jimenez Hemoglobin Ql (U) TRACE-INTACT Abnormal NEGATIVE [facility] Comment on above: Performed By: #### B MP #### [facility] [address] [address] [address] Ibis Jimenez Ketones Ql (U) Negative Normal NEGATIVE [facility] Comment on above: Performed By: #### B MP #### [facility] [address] [address] [address] Ibis Jimenez LEUKOCYTES Negative Normal NEGATIVE [facility] Comment on above: Performed By: #### B MP #### [facility] [address] [place] [address] Dr. Ibis Jimenez Nitrite Ql (U) Negative Normal NEGATIVE [facility] Comment on above: Performed By: #### B MP #### [facility] [address] [place] [address] Dr. Ibis Jimenez pH (U) 5.5 [pH] Normal 5-9 [facility] Comment on above: Performed By: #### B MP #### [facility] [address] [place] [address] Dr. Ibis Jimenez SPEC GRAVITY >=1.030 Abnormal 1.005-<=1.02 5 [facility] Comment on above: Performed By: #### B MP #### [facility] [address] [place] [address] Dr. bIis Jimenez UA PROTEIN Negative Normal NEGATIVE/ TRACE [facility] Comment on above: Performed By: #### B MP #### [facility] [address] [place] [address] Dr. Ibis Jimenez UR MICRO IND INDICATED Normal [facility] Comment on above: Performed By: #### B MP #### [facility] [address] [place] [address] Dr. Ibis Jimenez Urobilinogen Qn (U) 0.2 {Dinorah'U}/dL Normal 0.2 - 1. 0 [facility] Comment on above: Performed By: #### B MP #### [facility] [address] [place] [address] Dr. Ibis Jimenez LACTATE/LACTIC ACIDon 2021 Lactate [Moles/Vol] 1.2 mmol/L Normal 0.4-1.9 [facility] Comment on above: Performed By: #### A MM #### [facility] [address] [place] [address] Dr. Ibis Jimenez Lactic Acidon 10-19-2021 Lactic Acid,Whole Bl 0.9 mmol/L Normal 0.7-2.1 [facility] Comment on above: Performed By: #### T ROPI, LACTIC, CMPX, CBC #### [facility] [address] [place] [address] Sandfill Operator Surface: Tavon Nicole MD Lactic Acid, Whole Blood 0.9 mmol/L 0.7 - 2.1 mmol/L [facility] MONOon 10-19-2021 Monocytes (Bld) [#/Vol] Negative Normal NEGATIVE [facility] Comment on above: Performed By: #### M DAVID #### [facility] [address] [address] [address] Ibis Jimenez MRI BRAIN W WO [...] Normal [facility] Unremarkable MR brain. [facility] RIS CONSOLIDATED EXAMINATION: MRI OF THE [...] The soft tissues demonstrate no acute abnormality. [facility] RIS CONSOLIDATED Carlos Marks DO - [...] no acute abnormality. IMPRESSION: Unremarkable MR brain. [employer] Phone: Radiology Study observation (narrative) Unbound Phone: MRI BRAIN W WO CONTRASTOrder ed By: Carlos Marks on 10-19-2021 Unbound Phone: PH VENOUS BLOODon 10-19-2021 PCO2 VENOUS 36.6 mmHg Critically low 40.0-52.0 [facility] Comment on above: Performed By: #### B MP #### [facility] [address] [place] [address] Dr. Ibis Jimenez pH VENOUS 7.387 Normal 7.330-7.430 [facility] Comment on above: Performed By: #### B MP #### [facility] [address] [place] [address] Dr. Ibis Jimenez PROF CHEM 8 (BAS METB)on Anion gap [Moles/Vol] 11.9 mmol/L Normal [facility] [place] Comment on above: Performed By: #### M DAVID #### [facility] [address] [place] [address] Dr. Ibis Jimenez Calcium [Mass/Vol] 9.1 mg/dL Normal 8.5-10.1 [facility] Comment on above: Performed By: #### M DAVID #### [facility] [address] [place] [address] Dr. Ibis Jimenez Chloride [Moles/Vol] 104 mmol/L Normal 98-107 [facility] Comment on above: Performed By: #### M DAVID #### [facility] [address] [place] [address] Dr. Ibis Jimenez CO2 [Moles/Vol] 26.7 mmol/L Normal 21.0-32.0 [facility] Comment on above: Performed By: #### M DAVID #### [facility] [address] [place] [address] Dr. Ibis Jimenez Creatinine [Mass/Vol] 0.78 mg/dL Normal 0.55-1.02 [facility] Comment on above: Performed By: #### M DAVID #### [facility] [address] [place] [address] Dr. Ibis Jimenez EGFR-AF SWAZI >60 Normal >=60 [facility] Comment on above: Performed By: #### M DAVID #### [facility] [address] [place] [address] Dr. Ibis Jimenez EGFR-NON AF SWAZI >60 Normal >=60 [facility] Comment on above: Performed By: #### M DAVID #### [facility] [address] [address] [address] Ibis Jimenez Glucose [Mass/Vol] 96 mg/dL Normal 74-106 [facility] Comment on above: Performed By: #### M DAVID #### [facility] [address] [address] [address] Ibis Jimenez Potassium [Moles/Vol] 3.6 mmol/L Normal 3.5-5.1 [facility] Comment on above: Performed By: #### M DAVID #### [facility] [address] [address] [address] Ibis Jimenez Sodium [Moles/Vol] 139 mmol/L Normal 136-145 [facility] Comment on above: Performed By: #### M DAVID #### [facility] [address] [address] [address] Ibis Jimenez Urea nitrogen [Mass/Vol] 14.0 mg/dL Normal 7.0-18.0 [facility] Comment on above: Performed By: #### M DAVID #### [facility] [address] [address] [address] Ibis Jimenez Urea nitrogen/Creatinine [Mass ratio] 17.9 mg/mg Normal [facility] Comment on above: Performed By: #### M DAVID #### [facility] [address] [address] [address] Ibis Jimenez TSHon 10-19-2021 TSH 1.389 uIU/mL Normal 0.358-3.740 [facility] Comment on above: Performed By: #### A CET SALYC #### [facility] [address] [address] [address] Ibis Jimenez Troponinon 10-19-2021 Troponin, High [...] #### T ROPI, LACTIC, CMPX, CBC #### [facility] [address] [id number] Sandfill Operator Surface: Tavon Nicole MD Troponin, High Sensitivity ng/L 0 - 14 ng/L [facility] Comment on above: High Sensitivity Troponin values cannot be compared with other Troponin methodologies. Patients with high levels of Biotin oral intake (i.e >5mg/day) may have falsely decreased Troponin levels. Samples collected within 8 hours of biotin intake may require additional information for diagnosis. [facility] URINE MICROSCOPIC ONLYon BACTERIA TRACE Abnormal NONE SEEN [facility] Comment on above: Performed By: #### B MP #### [facility] [address] [place] [address] Dr. Ibis Jimenez Bacteria identified Cx Nom (U) NOT INDICATED Normal [facility] Comment on above: Performed By: #### B MP #### [facility] [address] [place] [address] Dr. Ibis Jimenez CAST NONE SEEN Normal NONE SEEN [facility] Comment on above: Performed By: #### B MP #### [facility] [address] [place] [address] Dr. Ibis Jimenez Crystals LM Nom (Urine sed) NONE SEEN Normal NONE SEEN [facility] Comment on above: Performed By: #### B MP #### [facility] [address] [place] [address] Dr. Ibis Jimenez Epithelial cells LM Ql (Urine sed) RARE Normal NONE SEEN /RARE [facility] Comment on above: Performed By: #### B MP #### [facility] [address] [place] [address] Dr. Ibis Jimenez MUCOUS LARGE Abnormal NONE SEEN [facility] Comment on above: Performed By: #### B MP #### [facility] [address] [place] [address] Dr. Ibis Jimenez RBC 2-5 Abnormal 0-2 [facility] Comment on above: Performed By: #### B MP #### [facility] [address] [place], [place] [address] Dr. Ibis Jimenez WBC 0-2 Abnormal NONE SEEN [facility] Comment on above: Performed By: #### B MP #### [facility] [address] [place], [place] [address] ABD/PELVIS WO CONon [...] JASS LAURENT Date: 2021-10-06 20:08 Normal [facility] ER URINE PROFILEon 2 Bilirubin Ql (U) Negative Normal NEGATIVE [facility] Comment on above: Performed By: #### M DAVID #### [facility] [address] [place] [address] Dr. Ibis Jimenez Clarity (U) CLEAR Normal CLEAR [facility] Comment on above: Performed By: #### M DAVID #### [facility] [address] [place] [address] Dr. Ibis Jimenez Color (U) LT. YELLOW Normal YELLOW [facility] Comment on above: Performed By: #### M DAVID #### [facility] [address] [place] [address] Dr. Ibis Jimenez ERUAHKishan A micrscopic examination will be performed if indicated. Normal [facility] Comment on above: Performed By: #### M DAVID #### [facility] [address] [place] [address] Dr. Ibis Jimenez Glucose Ql (U) Negative Normal NEGATIVE [facility] Comment on above: Performed By: #### M DAVID #### [facility] [address] [place] [address] Dr. Ibis Jimenez Hemoglobin Ql (U) Negative Normal NEGATIVE [facility] Comment on above: Performed By: #### M DAVID #### [facility] [address] [place] [address] Dr. Ibis Jimenez Ketones Ql (U) Negative Normal NEGATIVE [facility] Comment on above: Performed By: #### M DAVID #### [facility] [address] [place] [address] Dr. Ibis Jimenez LEUKOCYTES Negative Normal NEGATIVE [facility] Comment on above: Performed By: #### M DAVID #### [facility] [address] [place] [address] Dr. Ibis Jimenez Nitrite Ql (U) Negative Normal NEGATIVE [facility] Comment on above: Performed By: #### M DAVID #### [facility] [address] [place] [address] Dr. Ibis Jimenez pH (U) 8.0 [pH] Normal 5-9 [facility] Comment on above: Performed By: #### M DAVID #### [facility] [address] [place] [address] Dr. Ibis Jimenez SPEC GRAVITY 1.010 Normal 1.005-<=1.02 5 [facility] Comment on above: Performed By: #### M DAVID #### [facility] [address] [address] [address] Ibis Jimenez UA PROTEIN Negative Normal NEGATIVE/ TRACE [facility] Comment on above: Performed By: #### M DAVID #### [facility] [address] [address] [address] Ibis Jimenez UR MICRO IND NOT INDICATED Normal [facility] Comment on above: Performed By: #### M DAVID #### [facility] [address] [address] [address] Ibis Jimenez Urobilinogen Qn (U) 0.2 {Dinorah'U}/dL Normal 0.2 - 1. 0 [facility] Comment on above: Performed By: #### M DAVID #### [facility] [address] [place] [address] Dr. Ibis Jimenez ER URINE PROFILEon 2 Bilirubin Ql (U) Negative Normal NEGATIVE [facility] Comment on above: Performed By: #### C VDTBH #### [facility] [address] [place] [address] Dr. Ibis Jimenez Clarity (U) CLEAR Normal CLEAR [facility] Comment on above: Performed By: #### C VDTBH #### [facility] [address] [place] [address] Dr. Ibis Jimenez Color (U) YELLOW Normal YELLOW [facility] Comment on above: Performed By: #### C VDTBH #### [facility] [address] [place] [address] Dr. Ibis Jimenez ERUAHD A micrscopic examination will be performed if indicated. Normal [facility] Comment on above: Performed By: #### C VDTBH #### [facility] [address] [place] [address] Dr. Ibis Jimenez Glucose Ql (U) Negative Normal NEGATIVE [facility] Comment on above: Performed By: #### C VDTBH #### [facility] [address] [address] [address] Ibis Jimenez Hemoglobin Ql (U) Negative Normal NEGATIVE [facility] Comment on above: Performed By: #### C VDTBH #### [facility] [address] [address] [address] Ibis Jimenez Ketones Ql (U) Negative Normal NEGATIVE [facility] Comment on above: Performed By: #### C VDTBH #### [facility] [address] [place] [address] Dr. Ibis Jimenez LEUKOCYTES Negative Normal NEGATIVE [facility] Comment on above: Performed By: #### C VDTBH #### [facility] [address] [place] [address] Dr. Ibis Jimenez Nitrite Ql (U) Negative Normal NEGATIVE [facility] Comment on above: Performed By: #### C VDTBH #### [facility] [address] [place] [address] Dr. Ibis Jimenez pH (U) 6.0 [pH] Normal 5-9 [facility] Comment on above: Performed By: #### C VDTBH #### [facility] [address] [place] [address] Dr. Ibis Jimenez SPEC GRAVITY 1.025 Normal 1.005-<=1.02 5 [facility] Comment on above: Performed By: #### C VDTBH #### [facility] [address] [place] [address] Dr. Ibis Jimenez UA PROTEIN Negative Normal NEGATIVE/ TRACE [facility] Comment on above: Performed By: #### C VDTBH #### [facility] [address] [place] [address] Dr. Ibis Jimenez UR MICRO IND NOT INDICATED Normal [facility] Comment on above: Performed By: #### C VDTBH #### [facility] [address] [place] [address] Dr. Ibis Jimenez Urobilinogen Qn (U) 0.2 {Dinorah'U}/dL Normal 0.2 - 1. 0 [facility] Comment on above: Performed By: #### C VDTBH #### [facility] [address] [place] [address] Dr. Ibis Jimenez CBC AUTO DIFFon 10-03-2021 BASO # 0.0 103/ul Normal 0.0-0.1 [facility] Comment on above: Performed By: #### B MP #### [facility] [address] [place] [address] Dr. Ibis Jimenez Basophils/100 WBC (Bld) 0.3 % Normal 0.2-2.0 [facility] Comment on above: Performed By: #### B MP #### [facility] [address] [place] [address] Dr. Ibis Jimenez EO # 0.3 103/ul Normal 0.0-0.7 [facility] Comment on above: Performed By: #### B MP #### [facility] [address] [place] [address] Dr. Ibis Jimenez Eosinophils/100 WBC (Bld) 4.1 % Normal 0.9-7.0 [facility] Comment on above: Performed By: #### B MP #### [facility] [address] [place] [address] Dr. Ibis Jimenez Erythrocyte distribution width (RBC) [Ratio] 13.2 % Normal 11.0-15.0 [facility] Comment on above: Performed By: #### B MP #### [facility] [address] [place] [address] Dr. Ibis Jimenez Hematocrit (Bld) [Volume fraction] 35.7 % Critically low 36.0-48.0 [facility] Comment on above: Performed By: #### B MP #### [facility] [address] [place] [address] Dr. Ibis Jimenez Hemoglobin (Bld) [Mass/Vol] 11.6 g/dL Critically low 12.0-16.0 [facility] Comment on above: Performed By: #### B MP #### [facility] [address] [place] [address] Dr. Ibis Jimenez IG # 0.02 10e3/ul Normal 0.00-0.03 [facility] Comment on above: Performed By: #### B MP #### [facility] [address] [place] [address] Dr. Ibis Jimenez IG % 0.3 % Normal 0.0-0.5 [facility] Comment on above: Performed By: #### B MP #### [facility] [address] [place] [address] Dr. Ibis Jimenez LYMPH # 1.5 103/ul Normal 1.2-3.8 [facility] Comment on above: Performed By: #### B MP #### [facility] [address] [place] [address] Dr. Ibis Jimenez Lymphocytes/100 WBC (Bld) 24.3 % Normal 20.5-60.0 [facility] Comment on above: Performed By: #### B MP #### [facility] [address] [place] [address] Dr. Ibis Jimenez MANUAL DIFF REQ NO Normal [facility] Comment on above: Performed By: #### B MP #### [facility] [address] [place] [address] Dr. Ibis Jimenez MCH (RBC) [Entitic mass] 28.9 pg Normal 26.7-34.0 [facility] Comment on above: Performed By: #### B MP #### [facility] [address] [place] [address] Dr. Ibis Jimenez MCHC (RBC) [Mass/Vol] 32.5 g/dL Normal 29.9-35.2 [facility] Comment on above: Performed By: #### B MP #### [facility] [address] [place] [address] Dr. Ibis Jimenez MCV (RBC) [Entitic vol] 89.0 fL Normal 81.0-99.0 [facility] Comment on above: Performed By: #### B MP #### [facility] [address] [place] [address] Dr. Ibis Jimenez MONO # 0.5 103/ul Normal 0.3-0.8 [facility] Comment on above: Performed By: #### B MP #### [facility] [address] [address] [address] Ibis Jimenez Monocytes/100 WBC (Bld) 7.3 % Normal 1.7-12.0 [facility] Comment on above: Performed By: #### B MP #### [facility] [address] [place] [address] Dr. Ibis Jimenez NEUT # 4.0 103/ul Normal 1.4-6.5 [facility] Comment on above: Performed By: #### B MP #### [facility] [address] [place] [address] Dr. Ibis Jimenez Neutrophils/100 WBC (Bld) 63.7 % Normal 43.0-75.0 [facility] Comment on above: Performed By: #### B MP #### [facility] [address] [place] [address] Dr. Ibis Jimenez Platelet mean volume (Bld) [Entitic vol] 9.7 fL Normal 9.5-13.5 [facility] Comment on above: Performed By: #### B MP #### [facility] [address] [place] [address] Dr. Ibis Jimenez PLT 237 103/ul Normal 150-450 [facility] Comment on above: Performed By: #### B MP #### [facility] [address] [place] [address] Dr. Ibis Jimenez RBC 4.01 106/ul Critically low 4.20-5.40 [facility] Comment on above: Performed By: #### B MP #### [facility] [address] [place] [address] Dr. Ibis Jimenez WBC 6.3 103/ul Normal 4.0-11.0 [facility] Comment on above: Performed By: #### B MP #### [facility] [address] [place] [address] Dr. Ibis Jimenez LACTATE/LACTIC ACIDon 2021 Lactate [Moles/Vol] 1.2 mmol/L Normal 0.4-1.9 [facility] Comment on above: Performed By: #### A MM #### [facility] [address] [place] [address] Dr. Ibis Jimenez BUNon 10-02-2021 Urea nitrogen [Mass/Vol] 7.0 mg/dL Normal 7.0-18.0 [facility] Comment on above: Performed By: #### C VDTB #### [facility] [address] [place] [address] Dr. Ibis Jimenez CBC AUTO DIFFon 10-02-2021 BASO # 0.0 103/ul Normal 0.0-0.1 [facility] Comment on above: Performed By: #### A MM #### [facility] [address] [place] [address] Dr. Ibis Jimenez Basophils/100 WBC (Bld) 0.2 % Normal 0.2-2.0 [facility] Comment on above: Performed By: #### A MM #### [facility] [address] [place] [address] Dr. Ibis Jimenez EO # 0.0 103/ul Normal 0.0-0.7 [facility] Comment on above: Performed By: #### A MM #### [facility] [address] [place] [address] Dr. Ibis Jimenez Eosinophils/100 WBC (Bld) 0.3 % Critically low 0.9-7.0 [facility] Comment on above: Performed By: #### A MM #### [facility] [address] [place] [address] Dr. Ibis Jimenez Erythrocyte distribution width (RBC) [Ratio] 12.7 % Normal 11.0-15.0 [facility] Comment on above: Performed By: #### A MM #### [facility] [address] [place] [address] Dr. Ibis Jimenez Hematocrit (Bld) [Volume fraction] 43.4 % Normal 36.0-48.0 [facility] Comment on above: Performed By: #### A MM #### [facility] [address] [place] [address] Dr. Ibis Jimenez Hemoglobin (Bld) [Mass/Vol] 14.6 g/dL Normal 12.0-16.0 [facility] Comment on above: Performed By: #### A MM #### [facility] [address] [place] [address] Dr. Ibis Jimenez IG # 0.03 10e3/ul Normal 0.00-0.03 [facility] Comment on above: Performed By: #### A MM #### [facility] [address] [place] [address] Dr. Ibis Jimenez IG % 0.3 % Normal 0.0-0.5 [facility] Comment on above: Performed By: #### A MM #### [facility] [address] [place] [address] Dr. Ibis Jimenez LYMPH # 1.2 103/ul Normal 1.2-3.8 [facility] Comment on above: Performed By: #### A MM #### [facility] [address] [place] [address] Dr. Ibis Jimenez Lymphocytes/100 WBC (Bld) 11.6 % Critically low 20.5-60.0 [facility] Comment on above: Performed By: #### A MM #### [facility] [address] [place] [address] Dr. Ibis Jimenez MANUAL DIFF REQ NO Normal [facility] Comment on above: Performed By: #### A MM #### [facility] [address] [place] [address] Dr. Ibis Jimenez MCH (RBC) [Entitic mass] 28.5 pg Normal 26.7-34.0 [facility] Comment on above: Performed By: #### A MM #### [facility] [address] [place] [address] Dr. Ibis Jimenez MCHC (RBC) [Mass/Vol] 33.6 g/dL Normal 29.9-35.2 [facility] Comment on above: Performed By: #### A MM #### [facility] [address] [place] [address] Dr. Ibis Jimenez MCV (RBC) [Entitic vol] 84.6 fL Normal 81.0-99.0 [facility] Comment on above: Performed By: #### A MM #### [facility] [address] [place] [address] Dr. Ibis Jimenez MONO # 0.6 103/ul Normal 0.3-0.8 [facility] Comment on above: Performed By: #### A MM #### [facility] [address] [place] [address] Dr. Ibis Jimenez Monocytes/100 WBC (Bld) 5.9 % Normal 1.7-12.0 [facility] Comment on above: Performed By: #### A MM #### [facility] [address] [place] [address] Dr. Ibis Jimenez NEUT # 8.2 103/ul Critically high 1.4-6.5 [facility] Comment on above: Performed By: #### A MM #### [facility] [address] [place] [address] Dr. Ibis Jimenez Neutrophils/100 WBC (Bld) 81.7 % Critically high 43.0-75.0 [facility] Comment on above: Performed By: #### A MM #### [facility] [address] [place] [address] Dr. Ibis Jimenez Platelet mean volume (Bld) [Entitic vol] 9.8 fL Normal 9.5-13.5 [facility] Comment on above: Performed By: #### A MM #### [facility] [address] [place] [address] Dr. Ibis Jimenez PLT 264 103/ul Normal 150-450 [facility] Comment on above: Performed By: #### A MM #### [facility] [address] [place] [address] Dr. Ibis Jimenez RBC 5.13 106/ul Normal 4.20-5.40 [facility] Comment on above: Performed By: #### A MM #### [facility] [address] [place] [address] Dr. Ibis Jimenez WBC 10.1 103/ul Normal 4.0-11.0 [facility] Comment on above: Performed By: #### A MM #### [facility] [address] [place] [address] Dr. Ibis Jimenez CREATININEon 10-02-2021 Creatinine [Mass/Vol] 0.69 mg/dL Normal 0.55-1.02 [facility] Comment on above: Performed By: #### C VDTBH #### [facility] [address] [place] [address] Dr. Ibis Jimenez EGFR-AF SWAZI >60 Normal >=60 [facility] Comment on above: Performed By: #### C VDTBH #### [facility] [address] [place] [address] Dr. Ibis Jimenez EGFR-NON AF SWAZI >60 Normal >=60 [facility] Comment on above: Performed By: #### C VDTBH #### [facility] [address] [place] [address] Dr. Ibis Jimenez CBC AUTO DIFFon 10-01-2021 BASO # 0.0 103/ul Normal 0.0-0.1 [facility] Comment on above: Performed By: #### A MM #### [facility] [address] [place] [address] Dr. Ibis Jimenez Basophils/100 WBC (Bld) 0.3 % Normal 0.2-2.0 [facility] Comment on above: Performed By: #### A MM #### [facility] [address] [place] [address] Dr. Ibis Jimenez EO # 0.1 103/ul Normal 0.0-0.7 [facility] Comment on above: Performed By: #### A MM #### [facility] [address] [place] [address] Dr. Ibis Jimenez Eosinophils/100 WBC (Bld) 1.9 % Normal 0.9-7.0 [facility] Comment on above: Performed By: #### A MM #### [facility] [address] [place] [address] Dr. Ibis Jimenez Erythrocyte distribution width (RBC) [Ratio] 12.7 % Normal 11.0-15.0 [facility] Comment on above: Performed By: #### A MM #### [facility] [address] [place] [address] Dr. Ibis Jimenez Hematocrit (Bld) [Volume fraction] 38.1 % Normal 36.0-48.0 [facility] Comment on above: Performed By: #### A MM #### [facility] [address] [place] [address] Dr. Ibis Jimenez Hemoglobin (Bld) [Mass/Vol] 12.7 g/dL Normal 12.0-16.0 [facility] Comment on above: Performed By: #### A MM #### [facility] [address] [place] [address] Dr. Ibis Jimenez IG # 0.02 10e3/ul Normal 0.00-0.03 [facility] Comment on above: Performed By: #### A MM #### [facility] [address] [place] [address] Dr. Ibis Jimenez IG % 0.3 % Normal 0.0-0.5 [facility] Comment on above: Performed By: #### A MM #### [facility] [address] [place] [address] Dr. Ibis Jimenez LYMPH # 1.9 103/ul Normal 1.2-3.8 [facility] Comment on above: Performed By: #### A MM #### [facility] [address] [place] [address] Dr. Ibis Jimenez Lymphocytes/100 WBC (Bld) 30.5 % Normal 20.5-60.0 [facility] Comment on above: Performed By: #### A MM #### [facility] [address] [place] [address] Dr. Ibis Jimenez MANUAL DIFF REQ NO Normal [facility] Comment on above: Performed By: #### A MM #### [facility] [address] [place] [address] Dr. Ibis Jimenez MCH (RBC) [Entitic mass] 28.3 pg Normal 26.7-34.0 [facility] Comment on above: Performed By: #### A MM #### [facility] [address] [place] [address] Dr. Ibis Jimenez MCHC (RBC) [Mass/Vol] 33.3 g/dL Normal 29.9-35.2 [facility] Comment on above: Performed By: #### A MM #### [facility] [address] [place] [address] Dr. Ibis Jimenez MCV (RBC) [Entitic vol] 85.0 fL Normal 81.0-99.0 [facility] Comment on above: Performed By: #### A MM #### [facility] [address] [place] [address] Dr. Ibis Jimenez MONO # 0.3 103/ul Normal 0.3-0.8 [facility] Comment on above: Performed By: #### A MM #### [facility] [address] [place] [address] Dr. Ibis Jimenez Monocytes/100 WBC (Bld) 5.2 % Normal 1.7-12.0 [facility] Comment on above: Performed By: #### A MM #### [facility] [address] [place] [address] Dr. Ibis Jimenez NEUT # 3.9 103/ul Normal 1.4-6.5 [facility] Comment on above: Performed By: #### A MM #### [facility] [address] [place] [address] Dr. Ibis Jimenez Neutrophils/100 WBC (Bld) 61.8 % Normal 43.0-75.0 [facility] Comment on above: Performed By: #### A MM #### [facility] [address] [place] [address] Dr. Ibis Jimenez Platelet mean volume (Bld) [Entitic vol] 9.7 fL Normal 9.5-13.5 [facility] Comment on above: Performed By: #### A MM #### [facility] [address] [place] [address] Dr. Ibis Jimenez PLT 255 103/ul Normal 150-450 [facility] Comment on above: Performed By: #### A MM #### [facility] [address] [place] [address] Dr. Ibis Jimenez RBC 4.48 106/ul Normal 4.20-5.40 [facility] Comment on above: Performed By: #### A MM #### [facility] [address] [address] [address] Ibis Jimenez WBC 6.3 103/ul Normal 4.0-11.0 [facility] Comment on above: Performed By: #### A MM #### [facility] [id number] Ibis Jimenez PREG HCG QUALon 10-01-2021 , QUAL Negative Normal NEGATIVE [facility] Comment on above: Performed By: #### M DAVID #### [facility] [address] [address] [address] Ibis Jimenez Covid-19 PCR ([facility])on 09-20 SARS-CoV-2 (COVID-19) RNA SAURABH+probe Ql (Unsp spec) Not detected Normal NOT DETECTED [facility] Comment on above: Result Comment: This test is not yet approved or cleared by the [place] FDA. When there are no FDA-approved or cleared tests available, and other criteria are met, FDA can make tests available under an emergency access mechanism called an Emergency Use Authorization (EUA). The EUA for this test is supported by the [employer] Professor of Health and Human Service's (HHS's) declaration [...] SARS-CoV-2. Performed By: #### B MP #### [facility] [address] [place], [place] [id number] Dr. Ibis Jimenez TYPE AND SCREENon 09-29-2021 TYPE AND SCREEN Negative Normal [facility] Comment on above: Performed By: #### B MP #### [facility] [address] [place] [address] Dr. Ibis Jimenez Covid-19 PCR ([facility])on SARS-CoV-2 (COVID-19) RNA SAURABH+probe Ql (Unsp spec) Not detected Normal NOT DETECTED [facility] Comment on above: Result Comment: This test is not yet approved or cleared by the [place] FDA. When there are no FDA-approved or cleared tests available, and other criteria are met, FDA can make tests available under an emergency access mechanism called an Emergency Use Authorization (EUA). The EUA for this test is supported by the [employer] Professor of Health and Human Service's (HHS's) declaration [...] SARS-CoV-2. Performed By: #### C VDTBH #### [facility] [address] [place] [address] Dr. Ibis Jimenez TYPE AND SCREENon 09-21-2021 TYPE AND SCREEN Negative Normal [facility] Comment on above: Performed By: #### B MP #### [facility] [address] [place] [address] Dr. Ibis Jimenez CHLAMYDIA/GONOCOCCUS SAURABH (SW AB/URINE/PAPon 08-17-2021 Chlamydia trachomatis, SAURABH Negative Normal Negative [facility] Comment on above: Performed By: #### A CET, SALYC #### [facility] [address] [place] [address] Dr. Ibis Jimenez Neisseria gonorrhoeae, SAURABH Negative Normal Negative [facility] Comment on above: Performed By: #### A CET, SALYC #### [facility] [address] [place] [address] Dr. Ibis Jimenez CBC AUTO DIFFon 08-14-2021 BASO # 0.0 103/ul Normal 0.0-0.1 [facility] Comment on above: Performed By: #### C VDTBH #### [facility] [address] [place] [address] Dr. Ibis Jimenez Basophils/100 WBC (Bld) 0.3 % Normal 0.2-2.0 [facility] Comment on above: Performed By: #### C VDTBH #### [facility] [address] [place] [address] Dr. Ibis Jimenez EO # 0.2 103/ul Normal 0.0-0.7 [facility] Comment on above: Performed By: #### C VDTBH #### [facility] [address] [place] [address] Dr. Ibis Jimenez Eosinophils/100 WBC (Bld) 2.5 % Normal 0.9-7.0 [facility] Comment on above: Performed By: #### C VDTBH #### [facility] [address] [place] [address] Dr. Ibis Jimenez Erythrocyte distribution width (RBC) [Ratio] 13.0 % Normal 11.0-15.0 [facility] Comment on above: Performed By: #### C VDTBH #### [facility] [address] [place] [address] Dr. Ibis Jimenez Hematocrit (Bld) [Volume fraction] 38.1 % Normal 36.0-48.0 [facility] Comment on above: Performed By: #### C VDTBH #### [facility] [address] [place] [address] Dr. Ibis Jimenez Hemoglobin (Bld) [Mass/Vol] 12.8 g/dL Normal 12.0-16.0 [facility] Comment on above: Performed By: #### C VDTBH #### [facility] [address] [place] [address] Dr. Ibis Jimenez IG # 0.02 10e3/ul Normal 0.00-0.03 [facility] Comment on above: Performed By: #### C VDTBH #### [facility] [address] [address] [address] Ibis Jimenez IG % 0.3 % Normal 0.0-0.5 [facility] Comment on above: Performed By: #### C VDTBH #### [facility] [address] [address] [address] Ibis Jimenez LYMPH # 1.5 103/ul Normal 1.2-3.8 [facility] Comment on above: Performed By: #### C VDTBH #### [facility] [address] [address] [address] Ibis Jimenez Lymphocytes/100 WBC (Bld) 22.5 % Normal 20.5-60.0 [facility] Comment on above: Performed By: #### C VDTBH #### [facility] [address] [place] [address] Dr. Ibis Jimenez MANUAL DIFF REQ NO Normal [facility] Comment on above: Performed By: #### C VDTBH #### [facility] [address] [place] [address] Dr. Ibis Jimenez MCH (RBC) [Entitic mass] 28.6 pg Normal 26.7-34.0 [facility] Comment on above: Performed By: #### C VDTBH #### [facility] [address] [place] [address] Dr. Ibis Jimenez MCHC (RBC) [Mass/Vol] 33.6 g/dL Normal 29.9-35.2 [facility] Comment on above: Performed By: #### C VDTBH #### [facility] [address] [place] [address] Dr. Ibis Jimenez MCV (RBC) [Entitic vol] 85.0 fL Normal 81.0-99.0 [facility] Comment on above: Performed By: #### C VDTBH #### [facility] [address] [place] [address] Dr. Ibis Jimenez MONO # 0.4 103/ul Normal 0.3-0.8 [facility] Comment on above: Performed By: #### C VDTBH #### [facility] [address] [place] [address] Dr. Ibis Jimenez Monocytes/100 WBC (Bld) 6.3 % Normal 1.7-12.0 [facility] Comment on above: Performed By: #### C VDTBH #### [facility] [address] [place] [address] Dr. Ibis Jimenez NEUT # 4.6 103/ul Normal 1.4-6.5 [facility] Comment on above: Performed By: #### C VDTBH #### [facility] [address] [place] [address] Dr. Ibis Jimenez Neutrophils/100 WBC (Bld) 68.1 % Normal 43.0-75.0 [facility] Comment on above: Performed By: #### C VDTBH #### [facility] [address] [place] [address] Dr. Ibis Jimenez Platelet mean volume (Bld) [Entitic vol] 9.8 fL Normal 9.5-13.5 [facility] Comment on above: Performed By: #### C VDTBH #### [facility] [address] [place] [address] Dr. Ibis Jimenez PLT 243 103/ul Normal 150-450 [facility] Comment on above: Performed By: #### C VDTBH #### [facility] [address] [place] [address] Dr. Ibis Jimenez RBC 4.48 106/ul Normal 4.20-5.40 [facility] Comment on above: Performed By: #### C VDTBH #### [facility] [address] [place] [address] Dr. Ibis Jimenez WBC 6.7 103/ul Normal 4.0-11.0 [facility] Comment on above: Performed By: #### C VDTBH #### [facility] [address] [place] [id number] ABD/PELVIS WO CONon [...] NELI COTTO Date: 2021-08-14 18:00 Normal [facility] ER URINE PROFILEon 2 Bilirubin Ql (U) SMALL Abnormal NEGATIVE The [facility] Comment on above: Performed By: #### B MP #### [facility] [address] [place] [address] Dr. Ibis Jimenez Clarity (U) CLEAR Normal CLEAR [facility] Comment on above: Performed By: #### B MP #### [facility] [address] [place] [address] Dr. Ibis Jimenez Color (U) YELLOW Normal YELLOW [facility] Comment on above: Performed By: #### B MP #### [facility] [address] [place] [address] Dr. Ibis Jimenez ERUAHD A micrscopic examination will be performed if indicated. Normal [facility] Comment on above: Performed By: #### B MP #### [facility] [address] [address] [address] Ibis Jimenez Glucose Ql (U) Negative Normal NEGATIVE [facility] Comment on above: Performed By: #### B MP #### [facility] [address] [place] [address] Dr. Ibis Jimenez Hemoglobin Ql (U) SMALL Abnormal NEGATIVE [facility] Comment on above: Performed By: #### B MP #### [facility] [address] [address] [address] Ibis Jimenez Ketones Ql (U) TRACE Abnormal NEGATIVE [facility] Comment on above: Performed By: #### B MP #### [facility] [address] [place] [address] Dr. Ibis Jimenez LEUKOCYTES Negative Normal NEGATIVE [facility] Comment on above: Performed By: #### B MP #### [facility] [address] [place] [address] Dr. Ibis Jimenez Nitrite Ql (U) Negative Normal NEGATIVE [facility] Comment on above: Performed By: #### B MP #### [facility] [address] [place] [address] Dr. Ibis Jimenez pH (U) 5.5 [pH] Normal 5-9 [facility] Comment on above: Performed By: #### B MP #### [facility] [address] [place] [address] Dr. Ibis Jimenez SPEC GRAVITY >=1.030 Abnormal 1.005-<=1.[address] [place] [address] Comment on above: Performed By: #### B MP #### [facility] [address] [place] [address] Dr. Ibis Jimenez UA PROTEIN TRACE Normal NEGATIVE/ TRACE [facility] Comment on above: Performed By: #### B MP #### [facility] [address] [place] [address] Dr. Ibis Jimenez UR MICRO IND INDICATED Normal [facility] Comment on above: Performed By: #### B MP #### [facility] [address] [place] [address] Dr. Ibis Jimenez Urobilinogen Qn (U) 1.0 {Dinorah'U}/dL Normal 0.2 - 1. 0 [facility] Comment on above: Performed By: #### B MP #### [facility] [address] [place] [address] Dr. Ibis Jimenez URon 08-14-2021 , QUAL Negative Normal NEGATIVE [facility] Comment on above: Performed By: #### B MP #### [facility] [address] [place] [address] Dr. Ibis Jimenez PROF CHEM 8 (BAS METB)on Anion gap [Moles/Vol] 15.3 mmol/L Normal [facility] Comment on above: Performed By: #### B MP #### [facility] [address] [place] [address] Dr. Ibis Jimenez Calcium [Mass/Vol] 8.4 mg/dL Critically low 8.5-10.1 [facility] Comment on above: Performed By: #### B MP #### [facility] [address] [place] [address] Dr. Ibis Jimenez Chloride [Moles/Vol] 106 mmol/L Normal 98-107 [facility] Comment on above: Performed By: #### B MP #### [facility] [address] [place] [address] Dr. Ibis Jimenez CO2 [Moles/Vol] 22.3 mmol/L Normal 21.0-32.0 [facility] Comment on above: Performed By: #### B MP #### [facility] [address] [place] [address] Dr. Ibis Jimenez Creatinine [Mass/Vol] 0.75 mg/dL Normal 0.55-1.02 [facility] Comment on above: Performed By: #### B MP #### [facility] [address] [place] [address] Dr. Ibis Jimenez EGFR-AF SWAZI >60 Normal >=60 [facility] Comment on above: Performed By: #### B MP #### [facility] [address] [place] [address] Dr. Ibis Jimenez EGFR-NON AF SWAZI >60 Normal >=60 [facility] Comment on above: Performed By: #### B MP #### [facility] [address] [address] [address] Ibis Jimenez Glucose [Mass/Vol] 107 mg/dL Critically high 74-106 [facility] Comment on above: Performed By: #### B MP #### [facility] [address] [address] [address] Ibis Jimenez Potassium [Moles/Vol] 3.6 mmol/L Normal 3.5-5.1 [facility] Comment on above: Performed By: #### B MP #### [facility] [address] [address] [address] Ibis Jimenez Sodium [Moles/Vol] 140 mmol/L Normal 136-145 [facility] Comment on above: Performed By: #### B MP #### [facility] [address] [place] [address] Dr. Ibis Jimenez Urea nitrogen [Mass/Vol] 13.0 mg/dL Normal 7.0-18.0 [facility] Comment on above: Performed By: #### B MP #### [facility] [address] [place] [address] Dr. Ibis Jimenez Urea nitrogen/Creatinine [Mass ratio] 17.3 mg/mg Normal [facility] Comment on above: Performed By: #### B MP #### [facility] [address] [place] [address] Dr. Ibis Jimenez URINE MICROSCOPIC ONLYon BACTERIA TRACE Abnormal NONE SEEN [facility] Comment on above: Performed By: #### B MP #### [facility] [address] [place] [address] Dr. Ibis Jimenez Bacteria identified Cx Nom (U) NOT INDICATED Normal [facility] Comment on above: Performed By: #### B MP #### [facility] [address] [place] [address] Dr. Ibis Jimenez CAST NONE SEEN Normal NONE SEEN [facility] Comment on above: Performed By: #### B MP #### [facility] [address] [address] [address] Ibis Jimenez Crystals LM Nom (Urine sed) NONE SEEN Normal NONE SEEN [facility] Comment on above: Performed By: #### B MP #### [facility] [address] [place] [address] Dr. Ibis Jimenez Epithelial cells LM Ql (Urine sed) MANY Abnormal NONE SEEN /RARE [facility] Comment on above: Performed By: #### B MP #### [facility] [address] [place] [address] Dr. Ibis Jimenez MUCOUS SMALL Abnormal NONE SEEN [facility] Comment on above: Performed By: #### B MP #### [facility] [address] [place] [address] Dr. Ibis Jimenez RBC 2-5 Abnormal 0-2 [facility] Comment on above: Performed By: #### B MP #### [facility] [address] [place] [address] Dr. Ibis Jimenez WBC 2-5 Abnormal NONE SEEN [facility] Comment on above: Performed By: #### B MP #### [facility] [address] [place] [address] Dr. Ibis Jimenez CBC Auto DifferentialOrdered By: Vielka Ching on 12-24-2020 [employer] # 0.44 [employer] [facility] Work Phone: Absolute Immature Granulocyte 0.05 [employer] [facility] Work Phone: Absolute Lymph # 2.48 [employer] [facility] Work Phone: Absolute [place] # 0.55 [facility] Work Phone: Basophils (Bld) [#/Vol] 10*3/uL [employer] Work Phone: Basophils/100 WBC (Bld) 0 % 0 - 2 % [employer] Work Phone: Differential Type NOT REPORTED [employer] Work Phone: Eosinophils/100 WBC (Bld) 5 % High 1 - 4 % [employer] Work Phone: Hematocrit (Bld) [Volume fraction] 37.4 % 36.3 - 47.1 % [employer] Phone: Hemoglobin.gastrointes tinal spec 1 Ql (Stl) 12.3 g/dL 11.9 - 15.1 g/dL [employer] Phone: Immature granulocytes/100 WBC (Bld) 1 % High 0 [employer] Phone: Interpretation and review of laboratory results Abnormal [employer] Phone: Lymphocytes/100 WBC (Bld) 30 % 24 - 43 % [employer] Phone: MCH (RBC) [Entitic mass] 28.5 pg 25.2 - 33.5 pg [employer] Phone: MCHC (RBC) [Mass/Vol] 32.9 g/dL 28.4 - 34.8 g/dL [employer] Phone: MCV (RBC) [Entitic vol] 86.8 fL 82.6 - 102.9 fL [employer] Phone: Monocytes/100 WBC (Bld) 7 % 3 - 12 % [employer] Phone: NRBC Automated 0.0 0.0 per 100 WBC [employer] Phone: Platelet distribution width (Bld) [Ratio] 12.7 % 11.8 - 14.4 % [employer] Phone: Platelet Estimate NOT REPORTED [employer] Phone: Platelet mean volume (Bld) [Entitic vol] 9.4 fL 8.1 - 13.5 fL [employer] Phone: Platelets (Bld) [#/Vol] 252 10*3/uL [employer] Phone: RBC (Bld) [#/Vol] 4.31 10*6/uL 3.95 - 5.1 1 m/uL [employer] Phone: RBC (Bld) [#/Vol] NOT REPORTED [facility] [employer] Work Phone: Segmented neutrophils/100 WBC (Bld) 57 % 36 - 65 % [facility] [employer] Work Phone: Segs Absolute 4.[address] [facility] [employer] Work Phone: WBC (Bld) [#/Vol] 8.3 10*3/uL [facility] [employer] Work Phone: WBC (Bld) [#/Vol] NOT REPORTED [facility] [employer] Work Phone: [facility] Work Phone: CBC with Diffon 12-24-2020 Abs. Basophil <0.03 Normal 0.00-0.20 [facility] Comment on above: Performed By: #### C MPX, CDP #### [facility] [address] [place] [address] Dr[address] [place], [place] [id number] [employer] Surface: Souleymane Pineda MD Abs.Imm.Granulocyte 0.05 k/uL Normal 0.00-0.30 [facility] Comment on above: Performed By: #### C MPX, CDP #### [address] [place], [place] [id number] [employer] Surface: Souleymane Pineda MD Abs.Neutrophil (Seg) 4.78 k/uL Normal 1.50-8.10 [facility] Comment on above: Performed By: #### C MPX, CDP #### [address] [place], [place] [id number] [employer] Surface: Souleymane Pineda MD Basophils/100 WBC (Bld) 0 % Normal 0-2 [facility] Comment on above: Performed By: #### C MPX, CDP #### [address] [place], [place] [id number] [employer] Surface: Souleymane Pineda MD Eosinophils (Bld) [#/Vol] 0.44 10*3/uL Normal 0.00-0.44 [facility] Comment on above: Performed By: #### C MPX, CDP #### [address] [place] [address] [employer] Surface: Souleymane Pineda MD Eosinophils/100 WBC (Bld) 5 % High 1-4 [facility] Comment on above: Performed By: #### C MPX, CDP #### [address] [place], [place] [id number] [employer] Surface: Souleymane Pineda MD Erythrocyte distribution width (RBC) [Ratio] 12.7 % Normal 11.8-14.4 [facility] Comment on above: Performed By: #### C MPX, CDP #### [address] [place] [address] [employer] Surface: Souleymane Pineda MD Hematocrit (Bld) [Volume fraction] 37.4 % Normal 36.3-47.1 [facility] Comment on above: Performed By: #### C MPX, CDP #### [address] [place], [place] [id number] [employer] Surface: Souleymane Pineda MD Hemoglobin (Bld) [Mass/Vol] 12.3 g/dL Normal 11.9-15.1 [facility] Comment on above: Performed By: #### C MPX, CDP #### [address] [place], [place] [id number] [employer] Surface: Souleymane Pineda MD Immature granulocytes/100 WBC (Bld) 1 % High 0 [facility] Comment on above: Performed By: #### C MPX, CDP #### [address] [place] [address] [employer] Surface: Souleymane Pineda MD Lymphocytes (Bld) [#/Vol] 2.48 10*3/uL Normal 1.10-3.70 [facility] Comment on above: Performed By: #### C MPX, CDP #### [facility] [address] [place], [place] [id number] [employer] Surface: Souleymane Pineda MD Lymphocytes/100 WBC (Bld) 30 % Normal 24-43 [facility] Comment on above: Performed By: #### C MPX, CDP #### [facility] [address] [place], [facility]83 [employer] Surface: Souleymane Pineda MD MCH (RBC) [Entitic mass] 28.5 pg Normal 25.2-33.5 [facility] Comment on above: Performed By: #### C MPX, CDP #### [address] [place], [facility] [employer] Surface: Souleymane Pineda MD MCHC (RBC) [Mass/Vol] 32.9 g/dL Normal 28.4-34.8 [facility] Comment on above: Performed By: #### C MPX, CDP #### [address] [place], [place] [id number] [employer] Surface: Souleymane Pineda MD MCV (RBC) [Entitic vol] 86.8 fL Normal 82.6-102.9 [facility] Comment on above: Performed By: #### C MPX, CDP #### [address] [place], [facility] [employer] Surface: Souleymane Pineda MD Monocytes (Bld) [#/Vol] 0.55 10*3/uL Normal 0.10-1.20 [facility] Comment on above: Performed By: #### C MPX, CDP #### [facility] [address] [place] [address] [employer] Surface: Souleymane Pineda MD Monocytes/100 WBC (Bld) 7 % Normal 3-12 [facility] Comment on above: Performed By: #### C MPX, CDP #### [facility] [address] [place], [place] [id number] [employer] Surface: Souleymane Pineda MD Neutrophil (Seg) 57 % Normal 36-65 [facility] Comment on above: Performed By: #### C MPX, CDP #### [facility] [address] [place], [place] [id number] [employer] Surface: Souleymane Pineda MD NRBC Automated 0.0 per 100 WBC Normal 0.0 [facility] Comment on above: Performed By: #### C MPX, CDP #### [facility] [address] [place], [place] [id number] [employer] Surface: Souleymane Pineda MD Platelet mean volume (Bld) [Entitic vol] 9.4 fL Normal 8.1-13.5 [facility] Comment on above: Performed By: #### C MPX, CDP #### [address] [place], [place] [id number] [employer] Surface: Souleymane Pineda MD Platelets (Bld) [#/Vol] 252 10*3/uL Normal 138-453 [facility] Comment on above: Performed By: #### C MPX, CDP #### [address] [place], [place] [id number] [employer] Surface: Souleymane Pineda MD RBC (Bld) [#/Vol] 4.31 10*6/uL Normal 3.95-5.11 [facility] Comment on above: Performed By: #### C MPX, CDP #### [address] [place], [place] [id number] [employer] Surface: Souleymane Pineda MD WBC (Bld) [#/Vol] 8.3 10*3/uL Normal 3.5-11.3 [facility] Comment on above: Performed By: #### C MPX, CDP #### [address] [place], [place] [id number] [employer] Surface: Souleymane Pineda MD Auto Diff Performed NOT REPORTED Normal [facility] Comment on above: Performed By: #### C MPX, CDP #### [facility] [address] [place], [place] [id number] [employer] Surface: Souleymane Pineda MD Platelet Comment NOT REPORTED Normal [facility] Comment on above: Performed By: #### C MPX, CDP #### [facility] [address] [place] [address] [place] [address] [employer] Surface: Souleymane Pineda MD RBC morphology finding Nom (Bld) NOT REPORTED Normal [facility] Comment on above: Performed By: #### C MPX, CDP #### [address] [place], [place] [id number] [employer] Surface: Souleymane Pineda MD WBC Morphology NOT REPORTED Normal [facility] Comment on above: Performed By: #### C MPX, CDP #### [address] [place], [place] [id number] [employer] Surface: Souleymane Pineda MD CT HEAD WO CONTRASTon [...] the orbits demonstrate no acute abnormality. SINUSES: Yhxi-bw-vsmshzdy paranasal sinus mucosal thickening. SOFT TISSUES/SKULL: No acute abnormality of the visualized skull or soft tissues. IMPRESSION: No acute intracranial abnormality. Interpreted by: Edwin Bentley MD Signed by: Edwin Bentley MD 12/24/20 Final result Normal [facility] CT Head WO ContrastOrdered B y: Vielka Ching on 12-24-2020 No acute intracranial abnormality. [employer] Phone: EXAMINATION: CT OF THE HEAD WITHOUT [...] the orbits demonstrate no acute abnormality. SINUSES: Khrd-ea-eyczzcjx paranasal sinus mucosal thickening. SOFT TISSUES/SKULL: No acute abnormality of the visualized skull or soft tissues. [employer] Phone: Dimitri, [facility] Incoming Radiant Results From [employer] - 12/24/2020 8:49 PM EDT EXAMINATION: CT [...] the orbits demonstrate no acute abnormality. SINUSES: Sqlr-gz-mkxzsyfv paranasal sinus mucosal thickening. SOFT TISSUES/SKULL: No acute abnormality of the visualized skull or soft tissues. IMPRESSION: No acute intracranial abnormality. [facility] Work Phone: [facility] Work Phone: Comp Metabolic Pr/rfx MGon 1 02-24-2020 Bilirubin [Mass/Vol] mg/dL Low 0.3-1.2 [facility] Comment on above: Performed By: #### C MPX, CDP #### [facility] [address] [place] [address] [employer] Surface: Souleymane Pineda MD (cont.) Normal [facility] Comment on above: Result Comment: Aver age GFR for 20-29 years old: 116 mL/min/1.73sq m Chronic Kidney Disease: <60 mL/min/1.73sq m Kidney failure: <15 mL/min/1.73sq m eGFR calculated using average adult body mass. Additional eGFR calculator available at: http://www.[place] [employer]e.[employer]/multiple_crcl_2012.htm Performed By: #### C MPX, CDP #### [facility] [address] [place] [address] [employer] Surface: Souleymane Pineda MD Albumin [Mass/Vol] 4.0 g/dL Normal 3.5-5.2 [facility] Comment on above: Performed By: #### C MPX, CDP #### [facility] [address] [place] [address] [employer] Surface: Souleymane Pineda MD Albumin/Glob Ratio 1.5 Normal 1.0-2.5 [facility] Comment on above: Performed By: #### C MPX, CDP #### [facility] [address] [place] [address] [employer] Surface: Souleymane Pineda MD Alkaline Phos 90 U/L Normal 35-104 [facility] Comment on above: Performed By: #### C MPX, CDP #### [facility] [address] [place], [place] [phone] [employer] Surface: Souleymane Pineda MD ALT [Catalytic activity/Vol] 40 U/L High 5-33 [facility] Comment on above: Performed By: #### C MPX, CDP #### [facility] [address] [place], [place] [id number] [employer] Surface: Souleymane Pineda MD Anion gap [Moles/Vol] 11 mmol/L Normal 9-17 [facility] Comment on above: Performed By: #### C MPX, CDP #### [facility] [address] [place], [place] [id number] [employer] Surface: Souleymane Pineda MD AST [Catalytic activity/Vol] 19 U/L Normal <32 [facility] Comment on above: Performed By: #### C MPX, CDP #### [facility] [address] [place], [place] 1615383 [employer] Surface: Souleymane Pineda MD BUN/CRE Ratio 15 Normal 9-20 [facility] Comment on above: Performed By: #### C MPX, CDP #### [facility] [address] [place], [place] [phone] [employer] Surface: Souleymane Pineda MD Calcium [Mass/Vol] 8.9 mg/dL Normal 8.6-10.4 [facility] Comment on above: Performed By: #### C MPX, CDP #### [facility] [address] [place], [place] [phone] [employer] Surface: Souleymane Pineda MD Chloride [Moles/Vol] 104 mmol/L Normal 98-107 [facility] Comment on above: Performed By: #### C MPX, CDP #### [facility] [address] [place], [place] [id number] [employer] Surface: Souleymane Pineda MD CO2 [Moles/Vol] 24 mmol/L Normal 20-31 [facility] Comment on above: Performed By: #### C MPX, CDP #### [facility] [address] [place], [place] [id number] [employer] Surface: Souleymane Pineda MD Creatinine [Mass/Vol] 0.60 mg/dL Normal 0.50-0.90 [facility] Comment on above: Performed By: #### C MPX, CDP #### [facility] [address] [place], [place] [id number] [employer] Surface: Souleymane Pineda MD GFR, Amer >60 Normal >60 [facility] Comment on above: Performed By: #### C MPX, CDP #### [facility] [address] [place], [place] [address]183 [employer] Surface: Souleymane Pineda MD GFR,non Amer >60 Normal >60 [facility] Comment on above: Performed By: #### C MPX, CDP #### [facility] [address] [place], [place] [id number] [employer] Surface: Souleymane Pineda MD Glucose [Mass/Vol] 91 mg/dL Normal 70-99 [facility] Comment on above: Performed By: #### C MPX, CDP #### [facility] [address] [place], [place] [id number] [employer] Surface: Souleymane Pineda MD Potassium [Moles/Vol] 4.0 mmol/L Normal 3.7-5.3 [facility] Comment on above: Performed By: #### C MPX, CDP #### [facility] [address] [place] [address] [employer] Surface: Souleymane Pineda MD Protein [Mass/Vol] 6.7 g/dL Normal 6.4-8.3 [facility] Comment on above: Performed By: #### C MPX, CDP #### [facility] [address] [place] [address] [employer] Surface: Souleymane Pineda MD Sodium [Moles/Vol] 139 mmol/L Normal 135-144 [facility] Comment on above: Performed By: #### C MPX, CDP #### [facility] [address] [place] [address] [employer] Surface: Souleymane Pineda MD Staging: Normal [facility] Comment on above: Result Comment: Stag e 1: Some kidney damage normal GFR Stage 2: Mild kidney damage GFR 60-89 Stage 3: Moderate kidney damage GFR 30-59 Stage 4: Severe kidney damage GFR 15-29 Stage 5: Severe kidney damage GFR <15 ESRD - chronic treatment by dialysis or transplant Performed By: #### C MPX, CDP #### [facility] [address] [place] [address] [place] [address] [employer] Surface: Souleymane Pineda MD Urea nitrogen [Mass/Vol] 9 mg/dL Normal 6-20 [facility] Comment on above: Performed By: #### C MPX, CDP #### [facility] [address] [place] [address] [place] [address] [employer] Surface: Souleymane Pineda MD Comprehensive Metabolic Pane l w/ Reflex to MGOrdered By: Vielka Ching on 12-24-2020 Albumin [Mass/Vol] 4 g/dL 3.5 - 5.2 g/dL [facility] [employer] Phone: Albumin/Globulin [Mass ratio] 1.5 {ratio} [facility] Hospital[facility] SYSTEM[facility] [employer] Phone: ALP (Bld) [Catalytic activity/Vol] 90 U/L 35 - 104 U/L [facility] [employer] [facility] Phone: ALT [Catalytic activity/Vol] 40 U/L High 5 - 33 U/L [facility] Phone: Anion gap [Moles/Vol] 11 mmol/L 9 - 17 mmol/L [employer] Phone: AST [Catalytic activity/Vol] 19 U/L <32 [employer] Phone: Bilirubin [Mass/Vol] mg/dL Low 0.3 - 1 .2 mg/dL [employer] Phone: Calcium [Mass/Vol] 8.9 mg/dL 8.6 - 10. 4 mg/dL [employer] Phone: Chloride [Moles/Vol] 104 mmol/L 98 - 10 7 mmol/L [employer] Phone: CO2 [Moles/Vol] 24 mmol/L 20 - 31 mmol/L [employer] Phone: Creatinine [Mass/Vol] 0.6 mg/dL 0.50 - 0.90 mg/dL [employer] Phone: Free PSA/Total PSA [Mass fraction] 6.7 g/dL 6.4 - 8.3 g/dL [employer] Phone: GFR >60 >60 mL/min [employer] Phone: GFR Non- >60 >60 mL/min [employer] Phone: Glucose [Mass/Vol] 91 mg/dL 70 - 99 mg/dL [facility] [employer]: Interpretation and review of laboratory results Abnormal [facility] Phone: Potassium [Moles/Vol] 4.0 mmol/L 3.7 - 5.3 mmol/L [facility] Phone: Sodium [Moles/Vol] 139 mmol/L 135 - 144 mmol/L [facility] [employer]: Urea nitrogen (BldV) [Mass/Vol] 9 mg/dL 6 - 20 mg/dL [facility] Phone: Urea nitrogen/Creatinine (Bld) [Mass ratio] 15 [facility] Phone: [facility] Phone: Laboratory - Chemistry and C hemistry - challengeOrdered By: Vielka Ching on 12-24-2020 GFR/1.73 sq M.predicted MDRD (S/P/Bld) [Vol rate/Area] [employer] Phone: Comment on above: Average GFR for 20-2 9 years old: 116 mL/min/1.73sq m Chronic Kidney Disease: <60 mL/min/1.73sq m Kidney failure: <15 mL/min/1.73sq m eGFR calculated using average adult body mass. Additional eGFR calculator available at: [email or web address]_[email or web address] Stage 1: Some kidney damage normal GFR Stage 2: Mild kidney damage GFR 60-89 Stage 3: Moderate kidney damage GFR 30-59 Stage 4: Severe kidney damage GFR 15-29 Stage 5: Severe kidney damage GFR <15 ESRD - chronic treatment by dialysis or transplant Vital Signs Date Time Vital Sign Value Performing Clinician Facility 03-25-2024 15:21-0500 Body temperature 98.2 [degF] [facility] 03-25-2024 15:21-0500 Diastolic blood pressure 62 mm[Hg] [facility] 03-25-2024 15:21-0500 Heart rate 86 /min [facility] 03-25-2024 15:21-0500 Respiratory rate 20 /min [facility] 03-25-2024 15:21-0500 SaO2% (BldA) [Mass fraction] 99 % [facility] 03-25-2024 15:21-0500 Systolic blood pressure 132 mm[Hg] [facility] 03-25-2024 14:58-0500 Body height 154.9 cm [facility] 03-25-2024 14:58-0500 Body mass index (BMI) [Ratio] 45.57 kg/m2 [facility] 03-25-2024 14:58-0500 Body weight 109.4 kg [facility] 03-20-2024 12:15-0500 Body height 154.9 cm Mariah Peña DO Work Phone: [facility] 03-20-2024 12:15-0500 Body mass index (BMI) [Ratio] 45.54 kg/m2 Mariah Peña DO Work Phone: [facility] 03-20-2024 12:15-0500 Body weight 109.32 kg Mariah Peña DO Work Phone: [facility] 03-20-2024 12:15-0500 Diastolic blood pressure 80 mm[Hg] Mariah Peña DO Work Phone: [facility] 03-20-2024 12:15-0500 Heart rate 97 /min Mariah Peña DO Work Phone: [facility] 03-20-2024 12:15-0500 SaO2% (BldA) [Mass fraction] 98 % Mariah Peña DO Work Phone: [facility] 03-20-2024 12:15-0500 Systolic blood pressure 129 mm[Hg] Mariah Peña DO Work Phone: [facility] 03-20-2024 12:07-0500 Body height 154.[address] 03-20-2024 12:07-0500 Body mass index (BMI) [Ratio] 45.54 kg/m2 [address] 03-20-2024 12:07-0500 Body weight 109.[address] 03-18-2024 11:03-0500 Body height 154.9 cm Mundo Martinez MD Work Phone: [facility] 03-18-2024 11:03-0500 Body mass index (BMI) [Ratio] 45.69 kg/m2 Mundo Martinez MD Work Phone: [facility] 03-18-2024 11:03-0500 Body temperature 97.9 [degF] Mundo Martinez MD Work Phone: [facility] 03-18-2024 11:03-0500 Body weight 109.68 kg Mundo Martinez MD Work Phone: [facility] 03-18-2024 11:03-0500 Heart rate 77 /min Mundo Martinez MD Work Phone: [facility] 03-18-2024 11:03-0500 SaO2% (BldA) [Mass fraction] 99 % Mundo Martinez MD Work Phone: [facility] 03-06-2024 10:45-0500 Body mass index (BMI) [Ratio] 45.69 kg/m2 Zay Roopa DO Work Phone: [facility] 03-06-2024 10:45-0500 Body weight 109.68 kg Zay Roopa DO Work Phone: [facility] 03-06-2024 10:45-0500 Diastolic blood pressure 84 mm[Hg] Zay Roopa DO Work Phone: [facility] 03-06-2024 10:45-0500 Systolic blood pressure 122 mm[Hg] Zay Roopa DO Work Phone: [facility] 02-28-2024 11:25-0500 Body mass index (BMI) [Ratio] 47.31 kg/m2 Zay Roopa DO Work Phone: [facility] 02-28-2024 11:25-0500 Body weight 113.58 kg Zay Roopa DO Work Phone: [facility] 02-28-2024 11:25-0500 Diastolic blood pressure 80 mm[Hg] Zay Roopa DO Work Phone: [facility] 02-28-2024 11:25-0500 Systolic blood pressure 126 mm[Hg] Zay Roopa DO Work Phone: [facility] 02-09-2024 10:38-0500 Body height 154.9 cm Lamont Shay MD Work Phone: [facility] 02-09-2024 10:38-0500 Body mass index (BMI) [Ratio] 49.13 kg/m2 Lamont Shay MD Work Phone: [facility] 02-09-2024 10:38-0500 Body temperature 98.01 [degF] Lamont Shay MD Work Phone: [facility] 02-09-2024 10:38-0500 Body weight 117.94 kg Lamont Shay MD Work Phone: [facility] 02-09-2024 10:38-0500 Diastolic blood pressure 58 mm[Hg] Lamont Shay MD Work Phone: [facility] 02-09-2024 10:38-0500 Heart rate 111 /min Lamont Shay MD Work Phone: [facility] 02-09-2024 10:38-0500 Respiratory rate 22 /min Lamont Shay MD Work Phone: [facility] 02-09-2024 10:38-0500 SaO2% (BldA) [Mass fraction] 90 % Lamont Shay MD Work Phone: [facility] 02-09-2024 10:38-0500 Systolic blood pressure 118 mm[Hg] Lamont Shay MD Work Phone: [facility] 01-23-2024 13:28-0500 Body height 154.9 cm Lamont Shay MD Work Phone: [facility] 01-23-2024 13:28-0500 Body mass index (BMI) [Ratio] 52.91 kg/m2 Lamont Shay MD Work Phone: [facility] 01-23-2024 13:28-0500 Body temperature 98.4 [degF] Lamont Shay MD Work Phone: [facility] 01-23-2024 13:28-0500 Body weight 127.01 kg Lamont Shay MD Work Phone: [facility] 01-23-2024 13:28-0500 Diastolic blood pressure 74 mm[Hg] Lamont Shay MD Work Phone: [facility] 01-23-2024 13:28-0500 Heart rate 123 /min Lmaont Shay MD Work Phone: [facility] 01-23-2024 13:28-0500 Respiratory rate 26 /min Lamont Shay MD Work Phone: [facility] 01-23-2024 13:28-0500 SaO2% (BldA) [Mass fraction] 87 % Lamont Shay MD Work Phone: [facility] 01-23-2024 13:28-0500 Systolic blood pressure 128 mm[Hg] Lamont Shay MD Work Phone: [facility] 01-22-2024 15:39-0500 Diastolic blood pressure 82 mm[Hg] Infusion 1 Work Phone: [facility] 01-22-2024 15:39-0500 Heart rate 97 /min Infusion 1 Work Phone: [facility] 01-22-2024 15:39-0500 Systolic blood pressure 135 mm[Hg] Infusion 1 Work Phone: [facility] 01-22-2024 13:35-0500 SaO2% (BldA) [Mass fraction] 97 % Infusion 1 Work Phone: [facility] Comment on above: on room air 01-19-2024 11:28-0500 Diastolic blood pressure 75 mm[Hg] Infusion 5 Work Phone: [facility] 01-19-2024 11:28-0500 Heart rate 88 /min Infusion 5 Work Phone: [facility] 01-19-2024 11:28-0500 Systolic blood pressure 126 mm[Hg] Infusion 5 Work Phone: [facility] 01-19-2024 10:00-0500 Body temperature 97.3 [degF] Infusion 5 Work Phone: [facility] 01-17-2024 11:09-0500 Diastolic blood pressure 69 mm[Hg] Infusion 6 Work Phone: [facility] 01-17-2024 11:09-0500 Heart rate 85 /min Infusion 6 Work Phone: [facility] 01-17-2024 11:09-0500 Systolic blood pressure 129 mm[Hg] Infusion 6 Work Phone: [facility] 01-09-2024 09:18-0500 Body height 154.9 cm Lamont Shay MD Work Phone: [facility] 01-09-2024 09:18-0500 Body mass index (BMI) [Ratio] 53.66 kg/m2 Lamont Shay MD Work Phone: [facility] 01-09-2024 09:18-0500 Body temperature 98.01 [degF] Lamont Shay MD Work Phone: [facility] 01-09-2024 09:18-0500 Body weight 128.82 kg Lamont Shay MD Work Phone: [facility] 01-09-2024 09:18-0500 Diastolic blood pressure 72 mm[Hg] Lamont Shay MD Work Phone: [facility] 01-09-2024 09:18-0500 Heart rate 101 /min Lamont Shay MD Work Phone: [facility] 01-09-2024 09:18-0500 Respiratory rate 20 /min Lamont Shay MD Work Phone: [facility] 01-09-2024 09:18-0500 SaO2% (BldA) [Mass fraction] 90 % Lamont Shay MD Work Phone: [facility] 01-09-2024 09:18-0500 Systolic blood pressure 140 mm[Hg] Lamont Shay MD Work Phone: [facility] 01-05-2024 13:38-0500 Diastolic blood pressure 83 mm[Hg] Infusion 8 Work Phone: [facility] 01-05-2024 13:38-0500 Heart rate 105 /min Infusion 8 Work Phone: [facility] 01-05-2024 13:38-0500 Systolic blood pressure 139 mm[Hg] Infusion 8 Work Phone: [facility] 11-15-2023 09:05-0400 Body height 154.9 cm Lamont Shay MD Work Phone: [facility] 11-15-2023 09:05-0400 Body mass index (BMI) [Ratio] 51.58 kg/m2 Lamont Shay MD Work Phone: [facility] 11-15-2023 09:05-0400 Body temperature 97.81 [degF] Lamont Shay MD Work Phone: [facility] 11-15-2023 09:05-0400 Body weight 123.83 kg Lamont Shay MD Work Phone: [facility] 11-15-2023 09:05-0400 Diastolic blood pressure 66 mm[Hg] Lamont Shay MD Work Phone: [facility] 11-15-2023 09:05-0400 Heart rate 60 /min Lamont Shay MD Work Phone: [facility] 11-15-2023 09:05-0400 Respiratory rate 24 /min Lamont Shay MD Work Phone: [facility] 11-15-2023 09:05-0400 Systolic blood pressure 126 mm[Hg] Lamont Shay MD Work Phone: [facility] 10-13-2023 13:51-0400 Diastolic blood pressure 74 mm[Hg] Infusion 8 Work Phone: [facility] 10-13-2023 13:51-0400 Heart rate 77 /min Infusion 8 Work Phone: [facility] 10-13-2023 13:51-0400 Systolic blood pressure 134 mm[Hg] Infusion 8 Work Phone: [facility] 10-10-2023 09:25-0400 Body height 154.9 cm Lamont Shay MD Work Phone: [facility] 10-10-2023 09:25-0400 Body mass index (BMI) [Ratio] 48.94 kg/m2 Lamont Shay MD Work Phone: [facility] 10-10-2023 09:25-0400 Body temperature 97.5 [degF] Lamont Shay MD Work Phone: [facility] 10-10-2023 09:25-0400 Body weight 117.48 kg Lamont Shay MD Work Phone: [facility] 10-10-2023 09:25-0400 Diastolic blood pressure 78 mm[Hg] Lamont Shay MD Work Phone: [facility] 10-10-2023 09:25-0400 Heart rate 88 /min Lamont Shay MD Work Phone: [facility] 10-10-2023 09:25-0400 Respiratory rate 22 /min Lamont Shay MD Work Phone: [facility] 10-10-2023 09:25-0400 SaO2% (BldA) [Mass fraction] 95 % Lamont Shay MD Work Phone: [facility] 10-10-2023 09:25-0400 Systolic blood pressure 116 mm[Hg] Lamont Shay MD Work Phone: [facility] 09-19-2023 14:22-0400 Body height 158.4 cm Logan Barth PROTOTYPE ENGINEER.DIET COUNSELOR Work Phone: [facility] 09-19-2023 14:22-0400 Body mass index (BMI) [Ratio] 47.33 kg/m2 Logan Barth PROTOTYPE ENGINEER.DIET COUNSELOR Work Phone: [facility] 09-19-2023 14:22-0400 Body temperature 99.1 [degF] Koli Green PROTOTYPE ENGINEER.DIET COUNSELOR Work Phone: [facility] 09-19-2023 14:22-0400 Body weight 118.75 kg Logan Green PROTOTYPE ENGINEER.DIET COUNSELOR Work Phone: [facility] 09-19-2023 14:22-0400 Diastolic blood pressure 81 mm[Hg] Cameroni Green PROTOTYPE ENGINEER.DIET COUNSELOR Work Phone: [facility] 09-19-2023 14:22-0400 Heart rate 80 /min Logan Green PROTOTYPE ENGINEER.DIET COUNSELOR Work Phone: [facility] 09-19-2023 14:22-0400 Systolic blood pressure 115 mm[Hg] Cameroni Green PROTOTYPE ENGINEER.DIET COUNSELOR Work Phone: [facility] 08-18-2023 09:26-0400 Diastolic blood pressure 51 mm[Hg] Curtis Lepe PA-C Work Phone: [facility] 08-18-2023 09:26-0400 Heart rate 88 /min Curtis Lepe PA-C Work Phone: [facility] 08-18-2023 09:26-0400 SaO2% (BldA) [Mass fraction] 97 % Curtis Lepe PA-C Work Phone: [facility] 08-18-2023 09:26-0400 Systolic blood pressure 116 mm[Hg] Curtis Lepe PA-C Work Phone: [facility] 04-14-2023 11:08-0500 Diastolic blood pressure 62 mm[Hg] Infusion 7 Work Phone: [facility] 04-14-2023 11:08-0500 Heart rate 84 /min Infusion 7 Work Phone: [facility] 04-14-2023 11:08-0500 Systolic blood pressure 109 mm[Hg] Infusion 7 Work Phone: [facility] 04-13-2023 10:50-0500 Diastolic blood pressure 63 mm[Hg] Infusion 7 Work Phone: [facility] 04-13-2023 10:50-0500 Heart rate 86 /min Infusion 7 Work Phone: [facility] 04-13-2023 10:50-0500 Systolic blood pressure 127 mm[Hg] Infusion 7 Work Phone: [facility] 04-12-2023 13:45-0500 Diastolic blood pressure 58 mm[Hg] Infusion 7 Work Phone: [facility] 04-12-2023 13:45-0500 Heart rate 79 /min Infusion 7 Work Phone: [facility] 04-12-2023 13:45-0500 Systolic blood pressure 120 mm[Hg] Infusion 7 Work Phone: [facility] 11-11-2022 10:55-0400 Diastolic blood pressure 63 mm[Hg] Infusion 8 Work Phone: [facility] 11-11-2022 10:55-0400 Heart rate 83 /min Infusion 8 Work Phone: [facility] 11-11-2022 10:55-0400 Systolic blood pressure 110 mm[Hg] Infusion 8 Work Phone: [facility] 07-28-2022 10:15-0400 Diastolic blood pressure 50 mm[Hg] Infusion 8 Work Phone: [facility] 07-28-2022 10:15-0400 Heart rate 80 /min Infusion 8 Work Phone: [facility] 07-28-2022 10:15-0400 Systolic blood pressure 105 mm[Hg] Infusion 8 Work Phone: [facility] 12-03-2021 09:47-0400 Diastolic blood pressure 81 mm[Hg] Jesse Borrego MD Work Phone: [facility] 12-03-2021 09:47-0400 Heart rate 66 /min Jesse Borrego MD Work Phone: [facility] 12-03-2021 09:47-0400 SaO2% (BldA) [Mass fraction] 100 % Jesse Borrego MD Work Phone: [facility] 12-03-2021 09:47-0400 Systolic blood pressure 131 mm[Hg] Jesse Borrego MD Work Phone: [facility] 10-20-2021 12:00-0400 Diastolic blood pressure 101 mm[Hg] Lucila Mota MD Work Phone: [facility] 10-20-2021 12:00-0400 Heart rate 85 /min Lucila Mota MD Work Phone: [facility] 10-20-2021 12:00-0400 Respiratory rate 12 /min Lucila Mota MD Work Phone: [facility] 10-20-2021 12:00-0400 SaO2% (BldA) [Mass fraction] 98 % Lucila Mota MD Work Phone: [facility] 10-20-2021 12:00-0400 Systolic blood pressure 136 mm[Hg] Lucila Mota MD Work Phone: [facility] [employer] 10-20-2021 08:00-0400 Body temperature 98.2 [degF] Lucila Mota MD Work Phone: [facility] [employer] 12-24-2020 19:36-0400 Body temperature 99 [degF] Vielka Ching DO Work Phone: [facility] Work Phone: 12-24-2020 19:36-0400 Diastolic blood pressure 80 mm[Hg] Vielka Ching DO Work Phone: [facility] Work Phone: 12-24-2020 19:36-0400 Heart rate 108 /min Vielka Ching DO Work Phone: [facility] Work Phone: 12-24-2020 19:36-0400 Respiratory rate 20 /min Vielka Ching DO Work Phone: [facility] Work Phone: 12-24-2020 19:36-0400 SaO2% (BldA) [Mass fraction] 96 % Vielka Ching DO Work Phone: [facility] Work Phone: 12-24-2020 19:36-0400 Systolic blood pressure 136 mm[Hg] Vielka Ching DO Work Phone: [facility] Work Phone: Encounters Encounter Date Encounter Type Care Provider Facility Start: 03-25-2024 End: 03-25-2024 Patient encounter status [facility] Start: 03-25-2024 End: 03-25-2024 Orders Only Mundo Martinez MD Work Phone: [facility] Gynecology Oncology, A Department of [facility] Comment on above: Preop testing (Prima ry Dx); Bilateral ovarian cysts Start: 03-21-2024 End: 03-21-2024 Telephone encounter Mundo Martinez MD Work Phone: [facility] Gynecology Oncology, A Department of [facility] Comment on above: Other (Surgery quest ions) Start: 03-21-2024 End: 03-21-2024 ambulatory Logan Tab SEO Work Phone: Neurology [facility] Comment on above: Intractable chronic migraine without aura and without status migrainosus (Primary Dx) Start: 03-21-2024 End: 03-21-2024 Telemedicine consultation with patient Logan Barth GABBI Work Phone: Neurology [facility] Start: 03-20-2024 End: 03-20-2024 Office outpatient new 45 minutes Mariah Peña DO Work Phone: [facility] Comment on above: Asthma, unspecified asthma severity, unspecified whether complicated, unspecified whether persistent (Primary Dx); Bilateral ovarian cysts; Moderate asthma with acute exacerbation, unspecified whether persistent; Encounter for preoperative pulmonary examination; Pulmonary nodule; Gastroesophageal reflux disease, unspecified whether esophagitis present Start: 03-20-2024 End: 03-20-2024 Preoperative state Mundo Martinez MD Work Phone: [facility] Start: 03-20-2024 End: 03-20-2024 Orders Only Mundo Martinez MD Work Phone: [facility] Gynecology Oncology, A Department of [facility] Comment on above: Bilateral ovarian cy sts (Primary Dx); Moderate asthma with acute exacerbation, unspecified whether persistent; Encounter for preoperative pulmonary examination Acute cough [R05.1] (Primary Dx) Start: 03-19-2024 End: 03-19-2024 Orders Only Mundo Martinez MD Work Phone: [facility] Gynecology Oncology, A Department of [facility] Comment on above: Bilateral ovarian cy sts (Primary Dx); Preop testing Start: 03-19-2024 End: 03-19-2024 Patient encounter status Mundo Martinez MD Work Phone: [facility] Start: 03-18-2024 End: 03-18-2024 Office outpatient new 60 minutes Mundo Martinez MD Work Phone: [facility] Gynecology Oncology, A Department of [facility] Comment on above: Cyst of right ovary (Primary Dx) Start: 03-08-2024 ambulatory NON STAFF Facility:[facility] Start: 03-06-2024 End: 03-06-2024 Office outpatient visit 15 minutes Zay Roopa DO Work Phone: [facility] Comment on above: Cyst of right ovary; Pelvic pain in female; Pelvic peritoneal adhesions, female Start: 03-06-2024 End: 03-06-2024 ambulatory ZAY ROOPA Not Available Start: 02-28-2024 End: 02-28-2024 Bamboo flowsheet Zay Roopa DO Work Phone: [facility] Start: 02-28-2024 End: 02-28-2024 Bamboo flowsheet Zay Roopa DO Work Phone: [facility] Start: 02-28-2024 End: 02-28-2024 ambulatory ZAY ROOPA Not Available Start: 02-28-2024 End: 02-28-2024 Office outpatient visit 15 minutes Zay Roopa DO Work Phone: [facility] Comment on above: Pelvic pain in femal e; Complex ovarian cyst Start: 02-26-2024 End: 02-26-2024 Telephone encounter Lamont Shay MD Work Phone: [facility] Start: 02-22-2024 End: 02-22-2024 Telephone encounter Logan Barth APRN.DIET COUNSELOR Work Phone: Neurology [facility] Comment on above: Insurance Authorizat ion (Zolmitriptan) Start: 02-16-2024 End: 02-16-2024 ambulatory Dariusz Lantigua Sean Facility:[facility] Start: 02-09-2024 End: 02-09-2024 Office outpatient visit 25 minutes Lamont Shay MD Work Phone: [facility] Comment on above: Generalized abdomina l pain (Primary Dx); Intractable nausea and vomiting; Mild persistent asthma with (acute) exacerbation ([facility]) Start: 02-09-2024 End: 02-09-2024 ambulatory LAMONT SHAY Not Available Start: 01-31-2024 End: 02-02-2024 Clinisync Result Encounter Generic External Data Provider [facility] External Department Unsolicited Start: 01-31-2024 End: 02-02-2024 Clinisync Result Encounter Generic External Data Provider [facility] External Department Unsolicited Start: 01-29-2024 End: 01-30-2024 Telephone encounter Logan Barth APRN.DIET COUNSELOR Work Phone: Neurology [facility] Start: [...] End: 01-22-2024 Patient encounter procedure Raiza Morales PROTOTYPE ENGINEER.DIET COUNSELOR Work Phone: Neurology Comment on above: [...] 01-22-2024 Refill Lamont Shay MD Work Phone: [facility] Comment on above: Pain, dental [...] migrainosus Start: 01-16-2024 End: 01-16-2024 ambulatory Logan Barth PROTOTYPE ENGINEER.DIET COUNSELOR Work Phone: Neurology Headache [facility] Comment on above: Please help Start: 01-09-2024 [...] Start: 12-05-2023 End: 12-05-2023 ambulatory Ольга Aguilar PROTOTYPE ENGINEER.DIET COUNSELOR Work Phone: Neurology Comment on above: Intractable chronic migraine without aura and without status migrainosus (Primary Dx) Start: 12-05-2023 End: 12-05-2023 Telemedicine consultation with patient Ольга Aguilar PROTOTYPE ENGINEER.DIET COUNSELOR Work Phone: Neurology Start: 11-15-2023 End: 11-15-2023 [...] 11-06-2023 End: 11-06-2023 Orders Only Ronit Mustafa LEISURE TRAVEL AGENT Work Phone: [facility] Comment on [...] Dx); Mild persistent asthma with (acute) exacerbation ([facility]) Start: 10-10-2023 End: 10-10-2023 ambulatory LAMONT SHAY Not Available Start: 09-25-2023 End: 09-25-2023 ambulatory ZAY BLAS Not Available Start: 09-19-2023 End: 09-19-2023 ambulatory LOGAN BARTH Facility:[facility] Start: 09-19-2023 End: 09-19-2023 Patient encounter procedure Logan Barth APRN.CNP Work Phone: Neurology [facility] Comment on above: Intractable chronic migraine without aura and without status migrainosus (Primary Dx) Start: 08-21-2023 End: 08-21-2023 ambulatory KAVITA Not Available Start: 08-18-2023 End: 08-18-2023 ambulatory CURTIS LEPE Facility:[facility] Start: 08-18-2023 End: 08-18-2023 Patient encounter procedure Curtis Lepe PA-C Work Phone: Neurology Comment on above: Intractable chronic migraine without aura and without status migrainosus (Primary Dx); Psychogenic nonepileptic seizure Start: 08-16-2023 ambulatory Logan Barth APR, N.CNP Work Phone: Neurology [facility] Start: 08-16-2023 Subsequent hospital visit by physician Logan Barth APRN.DIET COUNSELOR Work Phone: Neurology [facility] Comment on above: Hospital visit Start: 08-08-2023 ambulatory Logan Barth APR N.DIET COUNSELOR Work Phone: Neurology [facility] Comment on above: Injection Start: 07-10-2023 End: 07-10-2023 ambulatory Logan Barth APRN.DIET COUNSELOR Work Phone: Neurology [facility] Comment on above: Intractable chronic migraine without aura and without status migrainosus (Primary Dx) Start: 07-10-2023 End: 07-10-2023 Telemedicine consultation with patient Logan Barth APRN.DIET COUNSELOR Work Phone: Neurology Headache [facility] Start: 06-26-2023 ambulatory Ольга Rhina meléndez APRN.CNP Work Phone: Neurology Comment on above: [...] End: 04-14-2023 Patient encounter procedure Suzan Driver APRN.FADY Work Phone: Neurology Comment on above: Intractable [...] Start: 04-12-2023 End: 04-12-2023 ambulatory SUZAN DRIVER Facility:[facility] Start: 04-12-2023 End: 04-12-2023 Patient encounter procedure Suzan Driver APRN.FADY Work Phone: Neurology Comment on above: Intractable [...] Angely rousseau RN Work Phone: [facility] Comment on above: Insurance Authorizat ion (Aimovig 70MG/ML auto-injectors/) Start: 03-23-2023 End: 03-23-2023 ambulatory LOGAN BARTH Facility:[facility] Start: 03-21-2023 End: 03-21-2023 ambulatory LAMONT SHAY Not Available Start: 03-20-2023 End: 03-20-2023 ambulatory ZAY BLAS Not Available Start: 12-13-2022 Refill Logan Barth APR N.DIET COUNSELOR Work Phone: Neurology Headache [facility] Comment on above: Refill Request Infusion (HEADACHE I NFUSIONS) Start: 12-09-2022 Refill Ольга meléndez PROTOTYPE ENGINEER.DIET COUNSELOR Work Phone: Neurology Comment on above: Refill Request Start: 11-11-2022 End: 11-11-2022 ambulatory Infusion Main Chair 8 Work Phone: Neurology Comment on above: Intractable chronic migraine without aura and with status migrainosus (Primary Dx) Start: 11-10-2022 End: 11-10-2022 ambulatory Ольга Aguilar PROTOTYPE ENGINEER.DIET COUNSELOR Work Phone: Neurology Comment on above: Intractable chronic migraine without aura and with status migrainosus (Primary Dx) Nerve block Start: 11-10-2022 Telephone encounter Suzan dinero PROTOTYPE ENGINEER.DIET COUNSELOR Work Phone: Neurology Comment on above: Infusion Start: 11-10-2022 End: 11-10-2022 Telemedicine consultation with patient Ольга Aguilar PROTOTYPE ENGINEER.DIET COUNSELOR Work Phone: [facility] Start: 10-12-2022 ambulatory Suzan boyle PROTOTYPE ENGINEER.DIET COUNSELOR Work Phone: Neurology Comment on above: Botox Start: 10-12-2022 E-mail encounter alexus m caregiver Suzan Driver PROTOTYPE ENGINEER.DIET COUNSELOR Work Phone: [facility] Start: 09-29-2022 Telephone encounter Angely rousseau RN Work Phone: [facility] Home Delivery Comment on above: Insurance Authorizat ion (Zomig 5MG nasal spray/) Start: 09-27-2022 ambulatory Logan Barth APR N.DIET COUNSELOR Work Phone: [facility] Comment on above: My apt Monday Start: 09-16-2022 ambulatory Logan Barth APR N.DIET COUNSELOR Work Phone: [facility] Start: 09-16-2022 Patient encounter procedure Logan Barth PROTOTYPE ENGINEER.DIET COUNSELOR Work Phone: [facility] Comment on above: Appointment Start: 08-31-2022 End: 08-31-2022 ambulatory Logan Barth PROTOTYPE ENGINEER.DIET COUNSELOR Work Phone: Neurology Comment on above: Chronic migraine w/o aura, not intractable, w/o stat migr (Primary Dx) Start: 08-31-2022 End: 08-31-2022 Telemedicine consultation with patient Logan Barth APRN.DIET COUNSELOR Work Phone: [facility] Start: 08-09-2022 ambulatory Logan Barth APR N.DIET COUNSELOR Work Phone: [facility] Comment on above: Pain Start: 08-08-2022 End: 08-08-2022 ambulatory Jesse Borrego MD Work Phone: Neurology Comment on above: Intractable chronic migraine without aura and with status migrainosus (Primary Dx) Start: 08-08-2022 End: 08-08-2022 Telemedicine consultation with patient Jesse Borrego MD Work Phone: [facility] Start: 08-07-2022 ambulatory Jesse rick [...] preprocedural examination DR ZAY BLAS . [facility] Start: 07-12-2022 End: 07-13-[address] ZAY BLAS . Facility:H1 Start: 07-12-2022 End: 07-13-2022 Encounter for other preprocedural examination DR ZAY BLAS . Facility:[facility]1 Start: 07-05-2022 ambulatory KRISTOFER Nunn acility:[facility] Start: 06-27-2022 Telephone encounter Logan Barth APRN.DIET COUNSELOR Work Phone: Neurology Comment on above: [...] with patient Nelly Saldaña PA-C Work Phone: [facility] Start: 11-09-2021 ambulatory Tyrone Dolan MD, PhD Work Phone: [facility] Start: 11-09-2021 Patient encounter procedure Tyrone Dolan MD, PhD Work Phone: Neurology Comment on above: Request Veido appoin tment Start: 11-08-2021 ambulatory Tyrone Dolan MD, PhD Work Phone: [facility] Start: 11-08-2021 Patient encounter procedure Tyrone Dolan MD, PhD Work Phone: Neurology Comment on above: Appointment Start: 11-08-2021 Telephone encounter Tyrone Dolan MD, PhD Work Phone: Neurology Comment on above: Orders Start: 11-04-2021 End: 11-04-2021 ambulatory [facility] Facility:H1 Start: 10-29-2021 End: 10-29-2021 ambulatory Tyrone Dolan MD, PhD Work Phone: Neurology Comment on above: Psychogenic nonepile ptic seizure (Primary Dx); Spells of trembling; Chronic intractable headache, unspecified headache type Start: 10-29-2021 End: 10-29-2021 Telemedicine consultation with patient Tyrone Dolan MD, PhD Work Phone: [facility] Start: 10-26-2021 Patient encounter procedure Román Storey MD Work Phone: Neurology Comment on above: Seizure-like activit y (HCC) (Primary Dx) Start: 10-19-2021 End: 10-20-2021 Evaluation and management of inpatient LUCILA MURPHYVasquez MOTA [facility] Start: 10-19-2021 End: 10-20-2021 Evaluation and management of inpatient Lucila Mota MD Work Phone: [facility] [place] 1B Neuro ICU Start: 10-19-2021 End: 10-19-2021 ambulatory SHAIKH Joseph WALLS Facility:H1 Start: 10-07-2021 End: 10-07-[address] ZAY BLAS . Facility:H1 Start: 10-06-2021 End: 10-06-2021 ambulatory SUKHDEEP DOCKERY Facility:H1 Start: 10-03-2021 End: 10-04-2021 ambulatory MANJINDER DEAL Facility:H1 Start: 10-01-2021 End: 10-02-2021 Evaluation and management of inpatient DR ANGÉLICA ARTHUR Facility:H1 Start: 10-01-2021 Encounter for preprocedural laboratory examination DR ZAY BLAS . [facility] Start: 09-29-2021 End: 09-30-[address] [...] 12-24-2020 Emergency department patient visit ANGÉLICA ARTHUR [facility] Start: 12-24-2020 End: 12-24-2020 Emergency department patient visit Vielka Ching DO Work Phone: [facility] ED Comment on above: Migraine without sta tus migrainosus, not intractable, unspecified migraine type (Primary Dx) Start: 02-18-2020 End: 02-18-2020 Telephone encounter Román Storey Work Phone: Neurology Comment on above: Future Appointment ( [place], [place], Any) Procedures Date Procedure Procedure Detail Performing Clinician Start: 03-25-2024 Antibody screen [facility] 3 Start: 03-25-2024 Blood typing serologic abo Mundo Martinez MD Work Phone: Start: 03-25-2024 REPEATED ABORH Mundo Martinez MD Work Phone: Start: 03-25-2024 Ecg routine ecg w/le ast 12 lds trcg only w/o i&r Mundo Martinez MD Work Phone: Start: 03-20-2024 PULMONARY FUNCTION TEST Mariah Peña DO Work Phone: Start: 01-31-2024 Bacteria identified in Urine by Culture Generic External Data Provider Start: 03-03-2022 Adult depression scr eening assessment Mnudo Martinez MD Work Phone: Start: 10-29-2021 Adult depression scr eening assessment Tyrone Dolan MD, PhD Work Phone: Start: 10-20-2021 EEG VIDEO MONITORING Marcy sommershira Chris PROTOTYPE ENGINEER - DIET COUNSELOR Work Phone: Start: 10-20-[address]IC METABOLIC PANE L W/ REFLEX TO MG FOR LOW K Lucila Mota MD Work Phone: Start: 10-20-2021 Blood count complete auto&auto difrntl wbc Lo Perez PROTOTYPE ENGINEER - DIET COUNSELOR Work Phone: Start: 10-20-2021 IMMATURE PLATELET FRACTION Lo Perez PROTOTYPE ENGINEER - DIET COUNSELOR Work Phone: Start: 10-19-2021 Assay of lactate Uday Perez PROTOTYPE ENGINEER - DIET COUNSELOR Work Phone: Start: 10-19-2021 Ecg routine ecg w/le ast 12 lds w/i&r Lo Perez PROTOTYPE ENGINEER - DIET COUNSELOR Work Phone: Start: 10-19-2021 Mri brain brain stem w/o w/contrast material Lo Perez PROTOTYPE ENGINEER - DIET COUNSELOR Work Phone: Start: 10-19-2021 RESPIRATORY CARE EVALUATION ONLY Lo Perez PROTOTYPE ENGINEER - DIET COUNSELOR Work Phone: Start: 10-01-2021 Resection of Bilater al Fallopian Tubes, Open Approach CHAYITO NARVAEZ . Start: 10-01-2021 Resection of Uterus, Open Approach CHAYITO NARVAEZ . Start: 12-24-2020 Blood count complete auto&auto difrntl wbc Vielka Ching DO Work Phone: Start: 12-24-2020 Ct head/brain w/o co ntrast material Vielka Ching DO Work Phone: Plan of Treatment Date Care Activity Detail Author Start: 09-20-2025 DTaP,Tdap and Td Vac cines (7 - Td or Tdap) DTaP,Tdap and Td Vaccines (7 - Td or Tdap) [facility] Start: 09-20-2025 DTaP/Tdap/Td vaccine (7 - Td or Tdap) DTaP/Tdap/Td vaccine (7 - Td or Tdap) [facility] Start: 09-20-2025 Urine microalbumin profile [facility] Start: 03-25-2025 Adult BMI Screening Adult BMI Screen ing [facility] Start: 03-25-2025 Tobacco Screening Tobacco Screening [facility] Start: 03-20-2025 Adult BMI Screening Adult BMI Screen ing [facility] Start: 03-20-2025 Tobacco Screening Tobacco Screening [facility] Start: 03-18-2025 Adult BMI Screening Adult BMI Screen ing [facility] Start: 03-18-2025 Tobacco Screening Tobacco Screening [facility] Start: 05-28-2024 End: 05-28-2024 Patient encounter procedure 05/28/2024 1:00 PM EDT Office Visit [facility] [address] [address] Mariah Peña DO [address] [address] [facility] Start: 04-25-2024 End: 04-25-2024 Patient encounter procedure 04/25/2024 1:00 PM EST Office Visit [facility] [address] [place] [phone] Corine Gold MD [address] [place], [place] [phone] [facility] Start: 04-16-2024 End: 04-16-2024 Patient encounter procedure 04/16/2024 8:30 AM EST Office Visit [facility] [address] [place] [address] Zay Blas, DO [address] [place], [place] [id number] [facility] Start: 04-10-2024 End: 04-10-2024 Patient encounter procedure 04/10/2024 11:30 AM EST Office Visit [facility] [address] [place] [phone] Svetlana Ye PA [address] [place] [address] [facility] Start: 04-10-2024 End: 04-10-2024 Professional / ancillary services management 04/10/2024 9:30 AM EST Ancillary Procedure [facility] [address] [place] [address] [facility] Start: 03-29-2024 End: 03-29-2024 ambulatory 03/29/2024 1:30 PM EST Infusion Center Neurology [address] [place] [address] [facility] infusion Neurology Comment on above: [facility] infusion Start: 03-28-2024 End: 03-28-2024 Admission to same day surgery center 03/28/2024 9:00 AM EST - 03/28/2024 12:45 PM EST Surgery [address] [address] Mundo Martinez MD [address] [place] [address] DAVINCI LYSIS OF ADHESIONS [facility] Comment on above: DAVINCI LYSIS OF ADH ESIONS Start: 03-28-2024 End: 03-28-2024 DAVINCI LYSIS OF ADHESIONS DAVINCI LYSIS OF ADHESIONS OVARIAN CYST BILATERAL 03/28/2024 9:00 AM EST [facility] Start: 03-28-2024 End: 03-28-2024 DAVINCI SALPINGO OOPHORECTOMY DAVINCI SALPINGO OOPHORECTOMY OVARIAN CYST BILATERAL 03/28/2024 9:00 AM EST [facility] Start: 03-28-2024 Subsequent hospital visit by physician 03/28/2024 9:00 AM EST Hospital Encounter [address] [address] Mundo Martinez MD [address] [place] [address] [facility] Start: 03-25-2024 End: 03-25-2024 Patient encounter procedure 03/25/2024 2:15 PM EST [facility] On [address] [address] [facility] Start: 03-22-2024 End: 03-22-2024 ambulatory 03/22/2024 1:30 PM EST Infusion Center Neurology [address] [facility] [place] [address] [facility] infusion Neurology Comment on above: [facility] infusion Start: 03-20-2024 End: 03-20-2025 CT Chest WO contrast CT chest without contrast Imaging Routine Moderate asthma with acute exacerbation, unspecified whether persistent Expected: 03/20/2024, Expires: 03/20/2025 [facility] Work Phone: Comment on above: Expected: 03/20/2024 , Expires: 03/20/2025 Start: 02-28-2024 End: 02-27-2025 AFP tumor marker AFP tumor marker Lab Routine Complex ovarian cyst Expected: 02/28/2024 (Approximate), Expires: 02/27/2025 [facility] Comment on above: Expected: 02/28/2024 (Approximate), Expires: 02/27/2025 Start: 02-28-2024 End: 02-27-2025 CA 125 CA 125 Lab Routine Complex ovarian cyst Expected: 02/28/2024 (Approximate), Expires: 02/27/2025 [facility] Comment on above: Expected: 02/28/2024 (Approximate), Expires: 02/27/2025 Start: 02-28-2024 End: 02-27-2025 Carcinoembryonic Ag [Mass/volume] in Serum or Plasma CEA Lab Routine Complex ovarian cyst Expected: 02/28/2024 (Approximate), Expires: 02/27/2025 [facility] Comment on above: Expected: 02/28/2024 (Approximate), Expires: 02/27/2025 Start: 02-28-2024 End: 02-27-2025 HCG, tumor marker HCG, tumor marker Lab Routine Complex ovarian cyst Expected: 02/28/2024 (Approximate), Expires: 02/27/2025 [facility] Comment on above: Expected: 02/28/2024 (Approximate), Expires: 02/27/2025 Start: 02-28-2024 End: 02-27-2025 Lactate dehydrogenase, isoenzymes Lactate dehydrogenase, isoenzymes Lab Routine Complex ovarian cyst Expected: 02/28/2024 (Approximate), Expires: 02/27/2025 [facility] Work Phone: Comment on above: Expected: 02/28/2024 (Approximate), Expires: 02/27/2025 Start: 02-28-2024 End: 02-27-2025 US Pelvis US Pelvis w/ TV Imaging Routine Pelvic pain in female Complex ovarian cyst Expected: 02/28/2024, Expires: 02/27/2025 [facility] Comment on above: Expected: 02/28/2024 , Expires: 02/27/2025 Start: 02-28-2024 End: 02-28-2024 Patient encounter procedure 02/28/2024 11:10 AM EST Office Visit [facility] [address] [place] [address] Zay Blas DO [address] [place] [address] [facility] Start: 02-22-2024 End: 02-22-2024 Patient encounter procedure 02/22/2024 11:15 AM EST Office Visit [facility] [address] [place] [address] Lamont Shay MD [address] [place] [address] [facility] Start: 02-09-2024 End: 02-08-2025 CT Abdomen and Pelvis WO and W contrast IV CT abdomen pelvis w and wo IV contrast Imaging Routine Generalized abdominal pain Intractable nausea and vomiting Expected: 02/09/2024, Expires: 02/08/2025 [facility] Work Phone: Comment on above: Expected: 02/09/2024 , Expires: 02/08/2025 Start: 02-05-2024 End: 02-05-2024 ambulatory 02/05/2024 1:45 PM EST [facility] Neurology [facility] [address] [place] [address] Logan Barth APRN.DIET COUNSELOR [address] [place] [address] [facility] Comment on above: [facility] Start: 01-24-2024 End: 01-24-2024 Patient encounter procedure 01/24/2024 3:20 PM EST Office Visit [facility] [address] [place] [address] Zay Blas DO [address] [facility] [place] [address] [facility] Start: 01-23-2024 End: 01-22-2025 Basic metabolic 1998 panel - Serum or Plasma Basic metabolic panel Lab Routine Generalized edema Expected: 01/23/2024 (Approximate), Expires: 01/22/2025 [facility] Comment on above: Expected: 01/23/2024 (Approximate), Expires: 01/22/2025 Start: 01-23-2024 End: 01-22-2025 CBC W Auto Differential panel - Blood CBC and differential Lab Routine Generalized edema SOB (shortness of breath) on exertion Expected: 01/23/2024 (Approximate), Expires: 01/22/2025 [facility] Comment on above: Expected: 01/23/2024 (Approximate), Expires: 01/22/2025 Start: 01-23-2024 End: 01-22-2025 Hepatic function 2000 panel - Serum or Plasma Hepatic function panel Lab Routine Generalized edema SOB (shortness of breath) on exertion Expected: 01/23/2024 (Approximate), Expires: 01/22/2025 [facility] Comment on above: Expected: 01/23/2024 (Approximate), Expires: 01/22/2025 Start: 01-23-2024 End: 01-22-2025 Natriuretic peptide B [Mass/volume] in Blood B-type natriuretic peptide Lab Routine Generalized edema Expected: 01/23/2024 (Approximate), Expires: 01/22/2025 [facility] Comment on above: Expected: 01/23/2024 (Approximate), Expires: 01/22/2025 Start: 01-23-2024 End: 01-22-2025 XR Chest 2 Views XR chest 2 views Imaging Routine Mild persistent asthma with (acute) exacerbation (CMS/HCC) Generalized edema SOB (shortness of breath) on exertion Expected: 01/23/2024, Expires: 01/22/2025 [facility] Work Phone: Comment on above: Expected: 01/23/2024 , Expires: 01/22/2025 Start: 01-23-2024 End: 01-23-2024 Patient encounter procedure [facility] Comment on above: Arrived Start: 01-22-2024 End: 01-22-2024 Patient encounter procedure 01/22/2024 2:30 PM EST Office Visit Neurology [address] [place] [address] Raiza Morales APRN.DIET COUNSELOR [address] [place] [address] Infusion Day #3 Neurology Comment on above: Infusion Day #3 Start: 01-22-2024 End: 01-22-2024 ambulatory 01/22/2024 2:00 PM EST Infusion Center Neurology [address] [place] [address] Non-[facility] Infusion Day #3 Neurology Comment on above: Non-[facility] Infusion Day #3 Start: 01-19-2024 End: 01-19-2024 ambulatory 01/19/2024 9:30 AM EST Infusion Center Neurology [address] [place] [address] Non-[facility] Infusion Day #2 Neurology Comment on above: Non-[facility] Infusion Day #2 Start: 01-09-2024 End: 01-09-2024 Patient encounter procedure [facility] Comment on above: Arrived Start: 01-05-2024 End: 01-05-2024 ambulatory 01/05/2024 1:00 PM EST Infusion Center Neurology [address] [place] [address] [facility] Comment on above: [facility] Start: 12-12-2023 End: 12-12-2023 Patient encounter procedure 12/12/2023 3:45 PM EDT Office Visit [facility] [address] [place] [address] Lamont Shay MD [address] [place] [address] [facility] Start: 12-11-2023 End: 12-11-2023 Patient encounter procedure 12/11/2023 1:00 PM EDT Office Visit [facility] [address] [place] [address] Zay Blas DO [address] [facility] [place] [address] Arrived [facility] Comment on above: Arrived Start: 11-15-2023 End: 11-15-2023 Patient encounter procedure 11/15/2023 8:45 AM EDT Office Visit [facility] [address] [place] [phone] Lamont Shay MD [address] [place] [phone] Arrived [facility] Comment on above: Arrived Start: 11-06-2023 End: 11-06-2023 Patient encounter procedure 11/06/2023 11:30 AM EDT Office Visit [facility] [address] [facility] [address] [place] [address] Jose Martin Lopez MD [address] [place] [id number] [facility] Start: 10-31-2023 End: 10-31-2023 Patient encounter procedure 10/31/2023 2:30 PM EDT Office Visit Neurology [address] [place], [place] [phone] Tyrone Dolan MD, PhD [address] [facility] [address] [place], [place] [phone] Seizure Neurology Comment on above: Seizure Start: 10-22-2023 Covid-19 Vaccine ( season) Covid-19 Vaccine ( season) [facility] Start: 10-22-2023 Covid-19 Vaccine ( season) Covid-19 Vaccine ( season) [facility] Start: 10-22-2023 Influenza vaccination C [facility] Start: 10-13-2023 End: 10-13-2023 ambulatory 10/13/2023 1:00 PM EDT Infusion Center Neurology [address] [place] [address] [facility] Neu[facility] Comment on above: [facility] Start: 10-10-2023 End: 10-10-2023 Patient encounter procedure 10/10/2023 9:15 AM EDT Office Visit [facility] [address] [place] [address] Lamont Shay MD [address] [facility] [place] [address] Arrived [facility] Comment on above: Arrived Start: 09-19-2023 End: 09-19-2023 Patient encounter procedure 09/19/2023 2:30 PM EDT Office Visit Neurology [facility] [address] [place] [address] Logan Barth APRN.DIET COUNSELOR [address] [place] [address] Migraines Nerve Block Neurology [facility] Comment on above: Migraines Nerve Bloc k Start: 08-18-2023 End: 08-18-2023 Patient encounter procedure 08/18/2023 9:30 AM EDT Office Visit Neurology [address] [place] [address] Curtis Lepe PA-C [address] [place] [address] NERVE BLOCK Neurology Comment on above: NERVE BLOCK Start: 03-03-2023 Depression Screening Depression [facility] Start: 02-20-2023 Depression Assessment Depression Ass [facility] Start: 10-29-2022 Adult depression scr eening assessment DEPRESSION SCREENING [facility] Start: 10-21-2022 Covid-19 Vaccine ( season) Covid-19 Vaccine ( season) [facility] Start: 10-21-2022 Influenza vaccination C [facility] Start: 02-20-2022 DEPRESSION ASSESSMENT DEPRESSION ASS [facility] Start: 10-26-2021 End: 10-26-2022 SARS-CoV-2 (COVID-19) RNA [Presence] in Respiratory specimen by SAURABH with probe detection PRE-PROCEDURE & PRE-OPERATIVE COVID Microbiology Routine Seizure-like activity (HCC) Expected: 10/26/2021, Expires: 10/26/2022 [facility] Work Phone: Comment on above: Expected: 10/26/2021 , Expires: 10/26/2022 Start: 10-21-2021 Influenza vaccination [facility] Start: 02-20-2021 DEPRESSION ASSESSMENT DEPRESSION ASS [facility] Start: 10-21-2020 Influenza vaccination Flu vaccine (# 1) [employer] Work Phone: Start: 11-13-2016 PAP TESTING PAP TESTING [facility] Start: 11-13-2016 Screening for malign ant neoplasm of cervix [facility] [employer] Start: 11-13-2014 Urine microalbumin profile [facility] Start: 11-13-2013 Adult BMI Follow Up Plan Adult BMI Follow Up Plan [facility] Start: 11-13-2013 Anxiety Screening Anxiety Screening [facility] Start: 11-13-2013 Depression Screening Depression Scre [facility] Start: 11-13-2013 Hepatitis C screening B ON [employer] Start: 11-13-2013 HEPATITIS C SCREENING HEPATITIS C SC REENING [facility] Start: 11-13-2013 HIV SCREENING HIV SCREENING [facility] Start: 11-13-2013 HIV screening HIV Screening [facility] Start: 2011 Screening for Chlamy rose trachomatis Chlamydia screen [facility] [employer] Start: 11-13-2010 HIV screening HIV screen [facility] [employer] Start: 11-13-2009 PEDS TO ADULT TRANSI TION ANNUAL ASSESSMENT PEDS TO ADULT TRANSITION ANNUAL ASSESSMENT [facility] Start: 2007 Adult depression scr eening assessment DEPRESSION SCREENING [facility] Start: 2007 COVID-19 Vaccine (1) COVID-19 Vaccin e (1) [employer] Phone: Start: 2007 Depression Screen Depression Screen [facility] Start: 2007 PEDS TO ADULT TRANSI TION INITIAL DISCUSSION PEDS TO ADULT TRANSITION INITIAL DISCUSSION [facility] Start: 11-13-2006 HPV VACCINE (1 - 2-d ose series) HPV VACCINE (1 - 2-dose series) [facility] Start: 11-13-2004 HPV VACCINE (1 - 2-d ose series) HPV VACCINE (1 - 2-dose series) [facility] Start: 05-13-1996 COVID-19 Vaccine (#1) COVID-19 Vacci ne (#1) [facility] Start: 1995 HEPATITIS B (1 of 3 - 3-dose series) HEPATITIS B (1 of 3 - 3-dose series) [facility] Start: 1995 Hepatitis B Vaccine (1 of 3 - 3-dose series) Hepatitis B Vaccine (1 of 3 - 3-dose series) [facility] Start: 1995 Hepatitis C screening Hepatitis C sc radha [employer] Phone: End: 03-20-2025 [id number] Phenotype Pwfxw-3-Vnhfsbqdcrr Phenotype Lab Routine Moderate asthma with acute exacerbation, unspecified whether persistent 1 Occurrences starting 03/20/2024 until 03/20/2025 [facility] Comment on above: 1 Occurrences starti ng 03/20/2024 until 03/20/2025 Rxnqv-3-Tpijwtxwash Phenotype Exyko-2-Wfysjgixhho Phenotype Lab Routine Moderate asthma with acute exacerbation, unspecified whether persistent 03/20/2024 1:12 PM EST [facility] Bacteria identified in Urine by Culture URINE CULTURE, ROUTINE Lab Routine 01/31/2024 11:57 AM EST [facility] End: 10-26-2021 Basic Metabolic Panel w/ Reflex to MG Basic Metabolic Panel w/ Reflex to MG Lab Routine Daily for 7 Days starting 10/20/2021 until 10/26/2021 [employer] Work Phone: Comment on above: Daily for 7 Days sta rting 10/20/2021 until 10/26/2021 End: 10-26-2021 CBC W Auto Differential panel - Blood CBC with Auto Differential Lab Routine Daily for 7 Days starting 10/20/2021 until 10/26/2021, 1 completed [facility] Work Phone: Comment on above: Daily for 7 Days sta rting 10/20/2021 until 10/26/2021, 1 completed End: 03-19-2025 ECG 12 lead ECG 12 lead ECG Routine Bilateral ovarian cysts Preop testing 1 Occurrences starting 03/19/2024 until 03/19/2025 [facility] Work Phone: Comment on above: 1 Occurrences starti ng 03/19/2024 until 03/19/2025 EKG 12 Lead EKG 12 Lead ECG Routine 10/19/2021 5:55 PM EDT [facility] Work Phone: End: 10-29-2022 [facility] AMB[facility]ATORY EEG [facility] EEG NEUROLOGY Routine Psychogenic nonepileptic seizure Spells of trembling 1 Occurrences starting 10/29/2021 until 10/29/2022 [facility] Work Phone: Comment on above: 1 Occurrences starti ng 10/29/2021 until 10/29/2022 End: 10-26-2022 EPIL EEG LEAD PLACEMENT EPIL EEG LEAD PLACEMENT NEUROLOGY Routine Seizure-like activity (HCC) 1 Occurrences starting 10/26/2021 until 10/26/2022 [facility] Work Phone: Comment on above: 1 Occurrences starti ng 10/26/2021 until 10/26/2022 End: 11-08-2022 EPIL EEG ROUTINE EPIL EEG ROUTINE NEUROLOGY Routine Seizure-like activity (HCC) 1 Occurrences starting 11/08/2021 until 11/08/2022 [facility] Work Phone: Comment on above: 1 Occurrences starti ng 11/08/2021 until 11/08/2022 EPIL VEEG ADMIT TO EMU/PMU EPIL VEEG ADMIT TO EMU/PMU NEUROLOGY Routine Seizure-like activity (HCC) Ordered: 10/26/2021 [facility] Work Phone: Comment on above: Ordered: 10/26/2021 Oxygen therapy [[facility] Data Set] Initiate Oxygen Therapy Protocol Respiratory Care Routine As Needed until discontinued starting 10/19/2021 [facility] Work Phone: Comment on above: As Needed until disc ontinued starting 10/19/2021 End: 03-19-2025 Type and screen(includes indirect ady) Type and screen(includes indirect ady) Blood Bank Routine Bilateral ovarian cysts Preop testing 1 Occurrences starting 03/19/2024 until 03/19/2025 [facility] Comment on above: 1 Occurrences starti ng 03/19/2024 until 03/19/2025 [facility] Immunizations Immunization Date Immunization Notes Care Provider Preethi blakc 12-08-2017 Influenza, injectabl e, Madin Henniker Canine Kidney, preservative free, quadrivalent Mundo Martinez MD Work Phone: [facility] 12-08-2017 influenza virus vacc ine, unspecified formulation Suzan Driver PROTOTYPE ENGINEER.DIET COUNSELOR Work Phone: [facility] 12-31-2015 influenza, seasonal, injectable, preservative free Mundo Martinez MD Work Phone: [facility] 09-21-2015 tetanus toxoid, redu ailyn diphtheria toxoid, and acellular pertussis vaccine, adsorbed Mundo Martinez MD Work Phone: [facility] 11-27-2014 influenza, seasonal, injectable, preservative free Mundo Martinez MD Work Phone: [facility] 10-23-2012 influenza, seasonal, injectable, preservative free Mundo Martinez MD Work Phone: [facility] 05-22-2012 human papilloma viru s vaccine, quadrivalent Mundo Martinez MD Work Phone: [facility] 01-20-2012 human papilloma viru s vaccine, quadrivalent Mundo Martinez MD Work Phone: [facility] 11-15-2011 human papilloma viru s vaccine, quadrivalent Mundo Martinez MD Work Phone: [facility] 11-15-2011 influenza, seasonal, injectable, preservative free Mundo Martinez MD Work Phone: [facility] 11-15-2011 meningococcal polysaccharide (groups A, C, Y and W-135) diphtheria toxoid conjugate vaccine (MCV4P) Mundo Martinez MD Work Phone: [facility] 11-15-2011 varicella virus vaccine Eloina Martinez MD Work Phone: [facility] 10-25-2002 hepatitis B vaccine, pediatric or pediatric/adolescent dosage Mundo Martinez MD Work Phone: [facility] 10-25-2002 varicella virus vaccine Eloina Martinez MD Work Phone: [facility] 09-07-2001 diphtheria, tetanus toxoids and acellular pertussis vaccine Mundo Martinez MD Work Phone: [facility] 09-07-2001 measles, mumps and rubella virus vaccine Mundo Martinez MD Work Phone: [facility] 09-07-2001 poliovirus vaccine, inactivated Mundo Martinez MD Work Phone: [facility] 03-05-1997 diphtheria, tetanus toxoids and acellular pertussis vaccine, Haemophilus influenzae type b conjugate, and poliovirus vaccine, inactivated ([id number]) Mundo Martinez MD Work Phone: [facility] 03-05-1997 measles, mumps and rubella virus vaccine Mundo Martinez MD Work Phone: [facility] 07-05-1996 diphtheria, tetanus toxoids and acellular pertussis vaccine, Haemophilus influenzae type b conjugate, and poliovirus vaccine, inactivated ([id number]) Mundo Martinez MD Work Phone: [facility] 05-06-1996 diphtheria, tetanus toxoids and acellular pertussis vaccine, Haemophilus influenzae type b conjugate, and poliovirus vaccine, inactivated ([id number]) Mundo Martinez MD Work Phone: [facility] 05-06-1996 hepatitis B vaccine, pediatric or pediatric/adolescent dosage Mundo Martinez MD Work Phone: [facility] 01-15-1996 diphtheria, tetanus toxoids and acellular pertussis vaccine, Haemophilus influenzae type b conjugate, and poliovirus vaccine, inactivated ([id number]) Mundo Martinez MD Work Phone: [facility] 1995 hepatitis B vaccine, pediatric or pediatric/adolescent dosage Mundo Martinez MD Work Phone: [facility] 1995 hepatitis B vaccine, pediatric or pediatric/adolescent dosage Mundo Martinez MD Work Phone: [facility] Payers Date Payer Category Payer Medicaid (Managed Care) [facility] MEDICA[facility] [id number] 2022 Self-pay 2017 Medicaid [place] [id number] 2017-Present Medicaid [id number] 2016 Medicaid [place] [id number] 2013 Medicaid [id number] [id number]. [id number] 2011 Unknown 1995 Unknown [id number] 2.16.840.1.622291.3.579.2. 173 1995 Unknown [id number] 2.16.840.1.089133.3.579.2. 175 1995 Unknown [id number] 2.16.840.1.421780.3.579.2. 727 1995 Unknown [id number] 2.16.840.1.707087.3.579.2. 593 1995 Unknown [id number] 2.16.840.1.619226.3.579.2. 593 1995 Unknown [id number] 2.16.840.1.837414.3.579.2. 593 1995 Unknown [id number] 2.16.840.1.716095.3.579.2. 593 1995 Unknown [id number] 2.16.840.1.493300.3.579.2. 593 1995 Unknown [id number] 2.16.840.1.967746.3.579.2. 593 1995 Unknown [id number] 2.16.840.1.399631.3.579.2. 593 1995 Unknown [id number] 2.16.840.1.865604.3.579.2. 593 1995 Unknown [id number] 2.16.840.1.439966.3.579.2. 593 1995 Unknown [id number] 2.16.840.1.134113.3.579.2. 593 1995 Unknown [id number] 2.16.840.1.962492.3.579.2. 593 1995 Unknown [id number] 2.16.840.1.720459.3.579.2. 593 1995 Unknown [id number] 2.16.840.1.886670.3.579.2. 593 1995 Unknown [id number] 2.16.840.1.108641.3.579.2. 593 1995 Unknown [id number] 2.16.840.1.822439.3.579.2. 593 1995 Unknown [id number] 2.16.840.1.997255.3.579.2. 593 1995 Unknown [id number] 2.16.840.1.290803.3.579.2. 593 1995 Unknown [id number] 2.16.840.1.889861.3.579.2. 593 1995 Unknown [id number] 2.16.840.1.297616.3.579.2. 593 1995 Unknown [id number] 2.16.840.1.991261.3.579.2. 593 1995 Unknown [id number] 2.16.840.1.356517.3.579.2. 593 1995 Unknown [id number] 2.16.840.1.435649.3.579.2. 593 1995 Unknown [id number] 2.16.840.1.730455.3.579.2. 125 1995 Unknown [id number] 2.16.840.1.100964.3.579.2. 1258 1995 Unknown [id number] 2.16.840.1.563556.3.579.2. 1258 1995 Unknown [id number] 2.16840.1.737893.3.579.2. 1258 1995 Unknown [id number] 2.16.840.1.739871.3.579.2. 125 1995 Unknown [id number] 2.16.840.1.110339.3.579.2. 1258 1995 Unknown [id number] 2.16.840.1.380344.3.579.2. 1258 1995 Unknown [id number] 2.16.840.1.462163.3.579.2. 1258 1995 Unknown [id number] 2.16.840.1.406526.3.579.2. 1258 1995 Unknown [id number] 2.16.840.1.137599.3.579.2. 1258 1995 Unknown [id number] 2.16.840.1.282520.3.579.2. 1258 1995 Unknown [id number] 2.16.840.1.391798.3.579.2. 1258 1995 Unknown [id number] 2.16.840.1.592105.3.579.2. 1259 1959 Unknown [id number] 1.2.840.720329.1.13.239.2. 7.3.155000.315 Unknown [id number] 2.16.840.1.169411.3.579.2. 531 Social History Date Type Detail Facility Tobacco smoking stat [facility] Unknown if ever smoked [facility] Start: 1995 Sex Assigned At Not on file [facility] Start: 12-24-2020 End: 12-29-2021 Tobacco smoking status NHIS Never smoker [facility] Phone: Start: 12-24-2020 End: 12-29-2021 Tobacco use and exposure Never used [facility] Start: 12-24-2020 End: 03-25-2024 Alcohol intake Ex-drinker (finding) [facility] Phone: Start: 10-16-2021 End: 07-28-2022 Exposure to SARS-CoV-2 (event) Not sure [facility] Tobacco smoking stat [facility] Tobacco smoking consumption unknown [facility] Work Phone: Start: 03-03-2020 End: 08-08-2022 History of Social function [facility] Start: 03-03-2020 End: 08-08-2022 Patient Health Questionnaire 2 item (PHQ-2) [Reported] [facility] Adult Depression Screening Assessment [address] [facility] Start: 11-15-2023 End: 03-06-2024 Alcoholic beverage intake Lifetime non-drinker (finding) [facility] Start: 07-31-2022 Alcohol Comment Caffeine intak e: >4 cups per day [facility] Do you belong to any clubs or organizations such as latter day groups, unions, fraternal or athletic groups, or [...] or rent on time? No [facility] Start: 09-25-2014 Sex Female (finding) [facility] NEGATED: Highlighted rowStart: NINF History of tobacco use Passive smoker [facility] Clinical Notes 12-24-2020 to 03-25-2024 Patient InstructionsTelephone Encounter - Nicky Zapata - 03/21/2024 11:47 AM ESTTelephone Encounter - Nicky Zapata - 03/21/2024 11:47 AM Logan Preciado APRN.CNP - 03/21/2024 8:48 AM EST Note Date & Type Note Facility 03-25-2024 Instructions Mari Saldaña RN - 03/25/2024 2:15 PM EST Your surgery/procedure is scheduled at [facility] on 03-28-2024 at 9am Arrival Time: 7am [facility] Address: [address] [place] [address] in [address] located on [facility]. Report to the Entrance B. Check in at the information desk the surgery. The waiting room located on the second floor. If you have any questions prior to surgery, please call Pre-Admission Clinic at [phone] between 7:30 am and 4:30 pm Monday through Monday. If you have questions the morning of surgery, please call the Pre-op Department at [phone]. Notify your SURGEON if you develop any illness such as a cold, cough, fever, sore throat, vomiting or are hospitalized between now and your surgery. Medication Instructions (Do not stop your medications without consulting the prescribing physician). Take the following medications the morning of surgery with a sip of water: Lamictal Diabetic or Weight loss medications: N/A Take inhalers as prescribed the morning of surgery. Due to the risk associated with these medications. If these medications are not held per instruction below, your surgery is at an increased risk for cancellation. SGLT2 Medications- Hold 3 days prior to surgery: Jardiance, Empagliflozin, Farxiga, Dapagliflozin, Invokana, Canagliflozin, Trijardy, Synjardy GLP-1 Medications (Injection or Pill)- If taken daily hold day of surgery. If taken weekly, hold 1 week prior to surgery: Adlyxin, Byetta, Bydureon, Ozempic, Rybelsus,Trulicity, Victoza, Wegovy, Lixisenatide, Exenatide, Semaglutide, Dulaglutide, Liraglutide GIP/GLP-1(Injection or Pill)- If taken daily hold day of surgery. If taken weekly, hold 1 week prior to surgery: Mounjaro . Blood thinners: Please contact your prescribing physician regarding a stop/hold date for these medications. Medications such as Coumadin, Heparin, Aspirin, Plavix, Eliquis, Pradaxa Diabetics: If you take insulin, contact your prescribing doctor for instructions on how to manage this the night before and the morning of surgery. Non-steriodal Anti-Inflammatory Drugs (NSAIDS)- Hold 3 days prior to surgery unless otherwise directed by your surgeon. Vitamins/Herbal Products: You may continue to take your prescribed vitamins such as potassium, iron, vitamin B, vitamin C, or multivitamin unless specifically instructed by your surgeon to hold. STOP taking all herbal products/teas one week prior to your surgery. Marijuana: Stop marijuana 72 hours prior to surgery, stop CBD oil 48 hours prior to surgery. If you have been given bowel prep instructions by your surgeon, please call the surgeon's office with any questions about these instructions. What do I do the day of Surgery? Age 2 through adult - Stop all solids by midnight, You may have clear liquids up to 2 hours before surgery, unless otherwise instructed by your surgeon. Clear liquids are: water, sports drinks such as Gatorade or G2, or apple juice. You may NOT have: tube feedings, dairy products, alcoholic beverages, orange juice, or any liquids with solids or pulp in it. If applicable, shower again with CHG soap the morning of your surgery. If you received a green plastic bracelet, bring it with you the day of surgery and your nurse will put it on you. In order to help prevent infection post-operatively, you may be asked to use a CHG mouthwash when you arrive to the Pre-op area. Your nurse will provide instruction the morning of. What do I need to do to prepare for surgery? If you will be going home the same day as your surgery, arrange for an adult over [address] Riding in a bus or taxi by yourself is not permitted. You should not smoke or drink alcohol 24 hours before your surgery. Alcohol thins the blood and may cause bleeding problems during surgery. Smoking increases the risk of breathing problems after surgery. Do not use lotions, creams, powders, perfume, make up, cologne or after-shaves day of surgery. Remove ALL jewelry including wedding rings, body piercings (including dermal piercings ,hair extensions that contain metal, nail spanish, make-up, and contact lens. You may brush your teeth the morning of surgery, but do not swallow the water. Wear your dentures and partial plates to the hospital (no adhesive). Shower the night the before. If applicable, use the CHG (chlorhexidine gluconate) soap or wipes What should I bring to the hospital? If you received a green plastic bracelet, bring it with you the day of surgery and your nurse will put it on you. Eyeglass or contact lens case If you will be spending the night, please bring personal care items and leave them in the car until you are taken to your room after surgery. Leave ALL valuables at home. If any of these instructions conflict with those you received from the surgeon, please seek clarification from your surgeon's office. DEEP BREATHING EXERCISES This exercise helps promote good air exchange and helps to prevent pneumonia after surgery. Breathe in slowly and deeply through the nose. Hold your breath for a few seconds and then exhale slowly through the mouth. Repeat this three times and then cough.Coughing helps to clear your lungs. If you have had a surgery with an incision into your abdomen or chest, press gently against your incision with a pillow or a folded blanket when you cough. Please be aware - it may not be wallace to cough following some types of surgeries involving the eyes, ears, sinuses and throat. Always follow your doctor's instructions. LEG EXERCISE These exercises help promote good circulation and help to prevent blood clots after surgery. Point your toes to the ceiling and then point them to the wall. Do this slowly about 15-20 times. You may also move your feet in circles. Do the exercise that is most comfortable for you. If you have had surgery involving your shoulder or arm, we recommend you move your fingers. PRACTICING We ask that you begin practicing these exercises before your surgery. After surgery try to do both exercises at least every 2 hours during the day and early evening. SURGICAL SITE INFECTION PREVENTION What is a Surgical Site Infection? Infection can happen to the area of the body where surgery is done. This is called a surgical site infection (SSI). A SSI does not happen very often. Can SSIs be treated? Antibiotics are used to treat SSI. Some patients may need another surgery to treat the infection. The doctor will discuss treatment options with you. What are some of the things that hospitals are doing to prevent SSIs? Soap and water or alcohol hand rub are used before and after caring for each patient. Special soap is used to clean surgery workers hands and arms just before the surgery. Masks, gowns, gloves and hair covers are worn during the surgery to keep the area clean. Hair in the surgery area may be removed with clippers (not razors). A special soap that kills germs is used to clean the skin at the surgery site. Antibiotics may be given before the surgery starts. What can you do to prevent SSIs? Before surgery: You may be asked to shower or bathe with a special soap that kills germs the night before and the day of surgery. Use the soap as you were told. If you smoke, stop or cut down. Ask your doctor about ways to quit. Do not shave near where you will have surgery. Shaving can irritate the skin and make it easier to get and infection. After surgery: Be sure that the doctors and nurses clean their hands before and after touching you. Be sure your family and friends clean their hands before and after visiting you. Do not be afraid to remind them. * Care for your wound at home as told by your doctor or nurse * Call your doctor right away if you have fever, redness, increased pain, or drainage at the surgery site. Further questions? Contact the doctor, nurse or the Infection Prevention and Control department if you have any questions. PATIENT RIGHTS AND RESPONSIBILITIES As a patient at [facility], you have the right to: Receive medical care and be informed of who is taking care of you Be treated with dignity and respect Have a family member/customer loyalty representative of choice and your physician notified of your admission Receive information and actively participate in decisions about your care and treatment Refuse care, treatment and services Decide who may provide your support and speak for you Access presybeterian and spiritual services Participate in ethical issues and questions about your care Receive private and confidential care Have appropriate assessment and management of your pain Know guest visitation restrictions or limitations Have an advance directive Access protective services Consent or refuse to participate in research studies or production or recordings, films or other images Have resolution of your complaints Receive information of hospital charges and payment methods Patient/patient customer loyalty representative responsibilities are to: Provide information about health status to facilitate care, treatment and services Follow the treatment, plan, keep appointments and speak up when you do not understand the plan Respect the rights of other patients and healthcare personnel Follow organizational rules and regulations that support quality care and a safe environment Fulfill financial obligations as promptly as possible Bathing Before Surgery- Patients greater than 2 months of age You can help to lower your chance of infection at the site of your surgery by showering or bathing with a special soap called chlorhexidine gluconate (CHG). Germs live on your skin. This special soap will help lower the amount of germs so they do not get into your surgery site. Special points to know: Do not use this soap if you know that you are allergic to CHG. Shower or bathe with CHG the night before and the morning of surgery. Do not shave the area of your body where the surgery will be done within 7 days of surgery. The CHG may make your skin a little dry, but do not use lotion. Steps for Bathing: Wash your hair as usual with your normal shampoo. Rinse your hair and body well after you shampoo to get rid all of the shampoo. Wash gently with the CHG from the neck down, but do not scrub the skin to hard. Be sure to wash the area of your surgery very well. If showering, turn the water off while washing and then turn the water back onto rinse. Do not get CHG in the genital (private) area. Do not get CHG in the eyes, ears, nose or mouth. (If the soap gets into the eyes, flush them immediately with water). Do not wash with regular soap after CHG is used. Pat skin dry with a soft, clean towel. Patient should sleep in freshly laundered night clothes and report for surgery in clean clothes. documented in this encounter [facility] 03-21-2024 Miscellaneous Notes ----- Message from Dr. Mundo Martinez MD sent at 03/21/2024 11:39 AM EST ----- Should be ok ----- Message ----- From: Nicky Zapata Sent: 03/21/2024 9:43 AM EST To: Mundo Martinez MD Pt is going up to the [facility] tomorrow and getting migraine infusion Vyepti infusion for migranies, during the infusion pt will get Toradol and benadryl, patient has surgery next week and she wants to make sure this infusion is ok to take and will not delay surgery, please advise. Pt was notified of Dr. Martinez response documented in this encounter [facility] 03-21-2024 Telephone encounter Note ----- Message from Dr. Mundo Martinez MD sent at 03/21/2024 11:39 AM EST ----- Should be ok ----- Message ----- From: Nicky Zapata Sent: 03/21/2024 9:43 AM EST To: Mundo Martinez MD Pt is going up to the [facility] tomorrow and getting migraine infusion Vyepti infusion for migranies, during the infusion pt will get Toradol and benadryl, patient has surgery next week and she wants to make sure this infusion is ok to take and will not delay surgery, please advise. [facility] 03-21-2024 Telephone encounter Note Pt was notified of Dr. Martinez response [facility] 03-21-2024 Note HNO ID: [id number] Author: LOGAN BARTH APRN.DIET COUNSELOR Service: ? Author Type: Nurse Practitioner Type: Progress Notes Filed: 03/21/2024 10:11 Note Text: Headache Center - Follow up [...] visit. Either the patient or their legal customer loyalty representative has been informed of the risks [...] Aura and Without Status Migrainosus Chief Complaint: headaches Impression and Plan from last visit 12/05/2023, [place]: IMPRESSION: Intractable chronic migraine without aura and without status migrainosus (primary encounter diagnosis) Coni Nicholson is a 28 year old year old female, with a history of asthma, anxiety, depression, PCOS, occipital neuralgia, psychogenic nonepileptic seizures, and chronic migraine.. Her headache intensity decreased after first Vyepti PLAN: Take Parafon Forte 3 times a day x 5 days, to break current headache cycle Take Marycruz or Zyrtec prior to Vyepti infusion Toradol can be added day of infusion if headache is present Interval Headache History: Since the last visit, the patient states that their headaches have improved. Short term, vyepti works - she has less migraines for the first two months afterwards. Third month wears off and she feels worse. She is due tomorrow for infusion, but was planning to cancel because she is not feeling well, and at first the infusion can give her ae of itchiness and nausea, but she tolerates with adding IV benadryl and toradol). Per pt she has SBO, cannot keep anything down, is scheduled for surgery next week. Told at least 3 months for recovery, she will not be able to drive/lift/bend. Plans to restart once she has recovered. Would like to have an alternative for now. Headache 1 Number of migraine headache days/month: 7 Number of headache free days/month: 14 Analgesic Ketorolac (Toradol) Anti-Convulsant Lamotrigine (Lamictal) Topiramate (Topamax, Trokendi XL, Qudexy) Anti-Depressant and Antipsychotic Amitriptyline (Elavil) [place] (Eskalith, Lithobid) Nortriptyline (Pamelor, Aventyl) Anti-Migraine Dihydroergotamine [...] Intolerance Vortioxetine Hives Prochlorperazine Intolerance Current Medications: ZOLMitriptan (ZOMIG) 5 mg nasal sprayUse 1 [place] in the nose as needed at onset of migraine headache. If symptoms persist or return, may repeat dose in other nostril after 2 hours. Maximum of 2 sprays per 24 hoursDisp: 12 EachRfl: 5 albuterol sulfate 90 mcg/actuation breath activated powder inhalerInhale 2 Puffs as instructed every 6 hours as needed for wheezing/shortness of breath.Disp: Rfl: promethazine (PHENERGAN) 25 mg tabletTake 1 tablet by mouth every 4 hours as needed. FOR NAUSEADisp: 90 tabletRfl: 5 keTORolac (TORADOL) 10 mg tabletTake 1 tablet by mouth every 6 hours as needed (severe migraine).Disp: 20 tabletRfl: 5 chlorzoxazone (PARAFON FORTE DSC) 500 mg tabletTake 1 tablet by mouth two times a day as needed for muscle spasm (migraine).Disp: 20 tabletRfl: 5 magnesium oxide 400 mg magnesium capTake 1 capsule by mouth ann (more content not included)... [facility] 03-21-2024 History of Presen t illness Narrative Images [...] visit. Either the patient or their legal customer loyalty representative has been informed of the risks [...] Aura and Without Status Migrainosus Chief Complaint: headaches Impression and Plan from last visit 12/05/2023, [place]: IMPRESSION: Intractable chronic migraine without aura and without status migrainosus (primary encounter diagnosis) Coni Nicholson is a 28 year old year old female, with a history of asthma, anxiety, depression, PCOS, occipital neuralgia, psychogenic nonepileptic seizures, and chronic migraine.. Her headache intensity decreased after first Vyepti PLAN: Take Parafon Forte 3 times a day x 5 days, to break current headache cycle Take Marycruz or Zyrtec prior to Vyepti infusion Toradol can be added day of infusion if headache is present Interval Headache History: Since the last visit, the patient states that their headaches have improved. Short term, vyepti works - she has less migraines for the first two months afterwards. Third month wears off and she feels worse. She is due tomorrow for infusion, but was planning to cancel because she is not feeling well, and at first the infusion can give her ae of itchiness and nausea, but she tolerates with adding IV benadryl and toradol). Per pt she has SBO, cannot keep anything down, is scheduled for surgery next week. Told at least 3 months for recovery, she will not be able to drive/lift/bend. Plans to restart once she has recovered. Would like to have an alternative for now. Headache 1 Number of migraine headache days/month: 7 Number of headache free days/month: 14 Analgesic Ketorolac (Toradol) Anti-Convulsant Lamotrigine (Lamictal) Topiramate (Topamax, Trokendi XL, Qudexy) Anti-Depressant and Antipsychotic Amitriptyline (Elavil) [place] (Eskalith, Lithobid) Nortriptyline (Pamelor, Aventyl) Anti-Migraine Dihydroergotamine [...] Intolerance Vortioxetine Hives Prochlorperazine Intolerance Current Medications: ZOLMitriptan (ZOMIG) 5 mg nasal spray^Use 1 [place] in the nose as needed at onset of migraine headache. If symptoms persist or return, may repeat dose in other nostril after 2 hours. Maximum of 2 sprays per 24 hours^Disp: 12 Each^Rfl: 5 albuterol sulfate 90 mcg/actuation breath activated powder inhaler^Inhale 2 Puffs as instructed every 6 hours as needed for wheezing/shortness of breath.^Disp: ^Rfl: promethazine (PHENERGAN) 25 mg tablet^Take 1 tablet by mouth every 4 hours as needed. FOR NAUSEA^Disp: 90 tablet^Rfl: 5 keTORolac (TORADOL) 10 mg [...] these with the patient: yes Logan Barth APRN.DIET COUNSELOR HEADACHE SCORES: 12/05/2023 01/17/2024 03/20/2024 Headache Questions ER visits since last office visit: 1 3 3 Hospital stays since last office visit 1 0 0 Limited ADLs in the last month: 12 20 12 Days missed from work or school in the last month: 15 Days headache pain free in the last month: 10 7 14 Days per month with ALL of the following symptoms - decreased productivity, light sensitivity and nausea: 20 7 Initial improvement of headache after botox injection at last visit: Not applicable, I did not have a botox injection at my last visit Not applicable, I did not have a botox injection at my last visit PRN medication usage in the last month: 20 Patient impression of improvement since last visit: Minimally improved Much worse Minimally improved 12/05/2023 01/17/2024 03/20/2024 HIT-6 HIT-6 66 (Severe impact) 74 (Severe impact) 72 (Severe impact) 12/05/2023 01/17/2024 03/20/2024 OMID - 2/7 SCORES OMID-2 Score 4 2 2 2 OMID-7 Score 8 12/05/2023 01/17/2024 03/20/2024 Migraine Specific QOL - Higher scores indicate better HRQL Role Function-Restrictive Transformed Score (range: 0-100) 60 0 20 Role Function-Preventive Transformed Score (range: 0-100) 65 5 35 Emotional Function Transformed Score (range: 0-100) 80 0 13.33 12/05/2023 01/17/2024 03/20/2024 PHQ-9 Score 6 9 9 12 Studies to Review: No MRI Head/Brain - [...] Lymph 1.00 - 4.00 k/uL 0.84 Abs [place] <0.87 k/uL 0.06 Abs Eosin <0.46 k/uL <0.03 Abs Baso <0.11 k/uL <0.03 NRBC /100 WBC 0.0 New Health Issues: Yes, see HPI Review of Systems: Review of system: unchanged [...] spontaneous and fluent without dysarthria. Short and group home memory, cognition and general fund of knowledge are good. Attention span and concentration are excellent. HEENT: Head is normocephalic and features were symmetric. Musculoskeletal: Patient able to sit up right in chair for entirety of visit. Cranial Nerves: III, IV, -EOMI: full. VII-face is symmetric without evidence of weakness. VIII-hearing intact. IMPRESSION/PLAN: Intractable chronic migraine without aura and without status migrainosus (primary encounter diagnosis) Coni Nicholson is a 28 year old year old female, with a history of asthma, anxiety, depression, PCOS, occipital neuralgia, psychogenic nonepileptic seizures, and chronic migraine. Her headaches have improved with Vyepti. Minimal ae of pruritus and nausea, effectively managed with co-administration of IV Benadryl, Toradol, and Zofran. I highly recommend proceeding with her Vyepti infusion as scheduled, prior to surgery next week (though would hold Toradol), if cleared by surgical team. IV therapy is the ideal route for her in the setting of persistent emesis - PO treatments would not be therapeutic at this time. Their neurological examination is essentially normal at this visit although this is limited due to nature of telehealth. Prior Authorization: Coni Nicholson has been previously [...] XL, Qudexy) Anti-Depressant and Antipsychotic Amitriptyline (Elavil) [place] (Eskalith, Lithobid) Nortriptyline (Pamelor, Aventyl) Blood Pressure [...] MEDICATION TREATMENT: Medications to Start Taking None Follow-up: for IV Vyepti infusion Level of Service: Virtual Visit 30 minutes Logan Barth APRN.CNP Headache Section [facility] March 21, 2024 documented in this encounter [facility] 03-20-2024 History of Presen t illness Narrative Images from the original note were not included. [facility] Patient - Coni Nicholson Age - 28 y.o. - 1995 Referring physician: Dr. Martinez Reason for Consultation: Asthma HPI: Coni Nicholson is a 28 y.o. female with history of asthma who presents for urgent evaluation for perioperative risk stratification from her gynecology surgeon. Patient has been having some significant pain and plan is for robotic assisted lysis of adhesions and evaluation of an ovarian cyst. Patient has history significant for asthma. She has previously seen pulmonary with Dr. Jason at [facility]. She has been treated with Trelegy 100 and has home nebulizer with pediatric dose albuterol, Singulair, Zyrtec and p.r.n. albuterol HFA. Patient states she is using rescue therapy 5 times per day on average. Sometimes more sometimes Last. She does have significant reflux which she takes omeprazole for but continues to have breakthrough symptoms particularly at night. She has been diagnosed with asthma as a child and has had multiple hospitalizations. Her last hospitalization was roughly 2018 after delivery of her 3rd child. She has not previously been on biologics and no formal allergy evaluation. She does feel as though she has seasonal and environmental allergies. Her daughter has a diagnosis of PCD and she is questioning if this is a consideration in herself. She frequently has nocturnal symptoms of her asthma. She reports that she is compliant maintenance therapy. She does feel better on steroids. She has frequent exacerbations throughout the year. She would say that she has more than 3 flare-ups per year requiring steroids. Historically on CBC with differential review she has eosinophilia with numbers greater than 300. ASSESSMENT Poorly controlled eosinophilic severe persistent asthma GERD Environmental allergies Pulmonary nodular opacities RLL on January 2023 CXR Peripheral eosinophilia Family history of PCD (daughter) PLAN I have personally reviewed the patient's most recent chest imaging and interpreted it independently. These findings were discussed with the patient. Given persistent respiratory symptoms and abnormal chest x-ray in January, patient warrants further investigation with CT scan of the chest. Order placed. Will also be beneficial and evaluated for underlying structural abnormality such as bronchiectasis Recent pertinent labs and PFT data reviewed. Will obtain respiratory allergen panel, IgE level, alpha-1 antitrypsin phenotype Patient requires maintenance inhaler therapy to be up stepped. Will increase her Trelegy 100 to Trelegy 200. New Rx was sent to pharmacy and she was given samples of the 200 dose today to start immediately Continue Singulair. Patient was advised to take daily Zyrtec Discussed her uncontrolled acid reflux. This is highly associated with poorly controlled asthma. This needs to be better controlled. Will increase her omeprazole to 40 mg daily. Her symptoms are worse at night so she was advised to take 30 minutes prior to her evening meal. New Rx for albuterol aerosols for adult dosing albuterol. Advised to use t.i.d. for now. Should use 1st in a.m. prior to using maintenance inhaler Trelegy, again mid day, again evening to optimize pulmonary status Education was provided regarding the patient's inhaler regimen and proper use reviewed. Understanding was demonstrated. Further recommendations pending laboratory review and follow up after surgery. She will likely be excellent candidate for biologic agent such as Dupixent. We briefly discussed this today. Patient is considered currently moderate risk of perioperative pulmonary complications and not prohibitive to proceed with proposed surgery. Will see back in clinic in 8 weeks or earlier if needed. The patient was encouraged to call me with any concerns prior. Thank you for allowing me to participate in your patient's care. Past Medical History: Diagnosis Date Anxiety Asthma BV (bacterial vaginosis) Depression Migraine Seizure (CMS-HCC) Past Surgical History: Procedure Laterality Date APPENDECTOMY SECTION CHOLECYSTECTOMY DILATION AND CURETTAGE OF UTERUS HYSTERECTOMY 10/01/2021 TUBAL LIGATION Bee venom protein (honey bee), Adhesive, Dihydroergotamine, Adhesive tape-silicones, Carbamazepine, Ciprofloxacin, Clindamycin, Dexamethasone, Dextromethorphan, Keflex [cephalexin], Levetiracetam, Metoclopramide, Propranolol hcl, Pyrilamine-dextromethorphan, Vortioxetine, Zithromax [azithromycin], Buspirone, Compazine [prochlorperazine], and Reglan [metoclopramide hcl] Prior to Admission medications Medication Sig Start Date End Date Taking? Authorizing Provider albuterol (ACCUNEB) 0.63 mg/3 mL nebulizer solution Inhale 3 mL (0.63 mg total) by nebulization every 6 (six) hours as needed for wheezing. 06/07/22 Yes Angélica Arthur APRN-WOOD albuterol (VENTOLIN HFA) 90 mcg/actuation inhaler INHALE TWO PUFFS BY MOUTH EVERY 4 HOURS NEEDED 06/07/22 Yes Angélica Arthur APRN-WOOD ARIPiprazole (ABILIFY) 10 mg tablet Take 1 tablet (10 mg total) by mouth in the morning. Yes Not In System Ref Prov baclofen (LIORESAL) 10 mg tablet Take 1 tablet (10 mg total) by mouth 3 (three) times a day. Yes Not In System Ref Prov cetirizine (ZyrTEC) 10 mg tablet Take 1 tablet (10 mg total) by mouth in the morning. 06/08/22 Yes Blue Grace APRN-FADY cyanocobalamin 1000 MCG tablet Take 1 tablet (1,000 mcg total) by mouth in the morning. Yes Not In System Ref Prov diazePAM (VALIUM) 10 mg tablet Take 0.5 tablets (5 mg total) by mouth in the morning and at bedtime. Yes Not In System Ref Prov EPINEPHrine (EPIPEN) 0.3 mg/0.3 mL auto-injector 0.3 mL (0.3 mg total) by other route as needed (exposure to allergen). 06/07/22 Yes ELSIE Luke cznbdnxpbgp-zumxwymvn-eclzjbon (TRELEGY ELLIPTA) 100-62.5-25 mcg blister with device daily. Yes Not In System Ref Prov fremanezumab-vfrm 225 mg/1.5 mL auto-injector Inject 225 mg under the skin every 28 days. 11/25/20 Yes SARAHI Powell guaiFENesin (MUCINEX) 600 mg tablet extended release 12hr Take 1 tablet (600 mg total) by mouth every 12 (twelve) hours. 04/21/22 Yes SARAHI Mccall ibuprofen (MOTRIN) 800 mg tablet Take 1 tablet (800 mg total) by mouth 3 (three) times a day. 02/10/24 Yes Alec Corrales MD ketoconazole (NIZORAL) 2 % shampoo APPLY TO AFFECTED AREA(S) LATHER AND LEAVE IN PLACE FOR 5 MINUTES AND THEN RINSE OFF WITH WATER. DO THIS 2 TIMES A WEEK FOR 4 WEEKS 11/26/21 Yes SARAHI Mccall lamoTRIgine (LaMICtal) 150 mg tablet 100mg in am 150mg at HS 02/23/22 Yes Not In System Ref Prov lamoTRIgine (LaMICtal) 50 MG tablet,disintegrating disintegrating tablet Dissolve 2 tablets (100 mg total) on tongue in the morning. Yes Not In System Ref Prov levalbuterol (XOPENEX HFA) 45 mcg/actuation inhaler Inhale 1-2 puffs every 4 (four) hours as needed for wheezing. 01/27/22 Yes SARAHI Mccall lithium carbonate 300 mg tablet 2 tablets (600 mg total). 01/17/22 Yes Not In System Ref Prov magnesium oxide 400 mg magnesium capsule Yes Not In System Ref Prov meclizine (ANTIVERT) 25 mg tablet Take 1 tablet (25 mg total) by mouth 3 (three) times a day as needed for dizziness. 06/22/22 Yes Fatmata Soliman MD montelukast (SINGULAIR) 10 mg tablet Take 1 tablet (10 mg total) by mouth in the morning. 06/07/22 Yes Angélica ArthurKESHIAN-GENERAL MAINTENANCE TECHNICIAN omeprazole (PriLOSEC) 20 mg capsule Take 1 capsule (20 mg total) by mouth in the morning. 01/27/22 Yes Blue Grace APRN-DIET COUNSELOR ondansetron ODT (ZOFRAN ODT) 4 mg disintegrating tablet Dissolve 1 tablet (4 mg total) on tongue every 8 (eight) hours as needed for nausea for up to 20 doses. 02/10/24 Yes Alec Corrales MD promethazine (PHENERGAN) 25 mg tablet Take 1 tablet (25 mg total) by mouth every 6 (six) hours as needed for nausea or vomiting. 08/10/23 Yes Katie Sue APRN-FADY rimegepant 75 mg tablet,disintegrating Dissolve 1 tablet on tongue daily as needed (migraines). 10/29/20 Yes Ivy Zafar APRN-DIET COUNSELOR scopolamine (TRANSDERM-SCOP) 1 mg/[address] 1 patch on the skin every third day for 10 doses. 03/18/24 04/15/24 Yes Mundo Martinez MD traZODone (DESYREL) 100 mg tablet Take 2 tablets (200 mg total) by mouth nightly. Yes Not In System Ref Prov vilazodone (VIIBRYD) 20 mg tablet 2 tablets (40 mg total). 04/20/22 Yes Not In System Ref Prov reports that she has never smoked. She has never used smokeless tobacco. She reports that she does not currently use alcohol. She reports that she does not currently use drugs. Family History Problem Relation Age of Onset Cystic fibrosis Mother Cystic fibrosis Father Ovarian cancer Maternal Aunt Review of Systems: All 11 systems have been reviewed and are negative except as mentioned in History of Present Illness. Exam: General: Alert, oriented, no acute distress, nontoxic, well nourished HEENT: Moist mucosal membranes, no oral lesions or oral thrush, trachea midline Chest: Clear to auscultation bilaterally without any crackles, wheezes, rhonchi. Normal AP diameter. CV: Regular rate regular rhythm Abdomen: Soft, nontender, no guard Extremities: No edema, erythema, distal cyanosis, clubbing Integumentary: Warm and dry. No rash or lesion Neuro: Cranial nerves 2-11 grossly intact. No lateralizing deficits. VITALS BP 129/80 Pulse 97 Ht 154.9 cm (5' 1 ) Wt 109.3 kg (241 lb) LMP (LMP Unknown) SpO2 98% BMI 45.54 kg/m PFT Results: Radiology CXR 01/23/24 Clinical history: Shortness of breath, generalized edema. Congestion and chest tightness. Comparisons: 06/29/2009 through 03/03/2022. Findings: 2 views of the chest obtained. There are ill-defined nodular opacities with in the right lower lobe. Left lung appears grossly clear. Heart size and pulmonary vasculature appear within normal limits. No pleural effusion nor pneumothorax. IMPRESSION: 1. Ill-defined nodular opacities are present within the right lower lobe. Findings are nonspecific and may represent evolving or resolving consolidation from community-acquired, atypical infection or aspiration among other etiologies. Other considerations including malignancy not excluded, therefore clinical correlation and short-term radiographic follow-up to document appropriate clearing is recommended. These findings do not clear in a timely fashion, then CT chest is warranted. Dr. Mariah Peña DO. [facility] Office: [phone] documented in this encounter [facility] 03-18-2024 History of Presen t illness Narrative Subjective: Coni is a 28 y.o. female here for consultation from Dr. Blas for evaluation and management of ovarian cysts. Pt reports multiple symptoms, primarily pelvic pain. Pelvic Pain - persistent for last several years but has gotten worse for the last 4-5 months. Consistently evaluated by [facility] for the pain. He has done numerous diagnostic laparoscopies per patient since her hyst. She has tried vaginal estrogen for vaginal pain. Pain is stabbing, throbbing consistent, intolerable located in her abdomen bilaterally. The pain causes her to hunch over. She has tried OCPs prior to her hyst which also didn't help. In 2021, she had a hyst as he didn't want any more kids and that the hyst would possibly help her pain, but it didn't. She was reported to have PCOS and since the hyst has had ruptured hemorrhagic cysts and has had a cystectomy at the time of hyst. She then had a laparoscopic exploration in 2022 for lysis of adhesions - just found a lot of scar tissue. The plan was for bilateral oophorectomy but patient states there was too much scar tissue for Dr. Blas to safely do it. Pt reports having had pelvic floor PT in 2023 but it didn't help. Se is not currently sexually active. She has been having vaginal bleeding off and on for the last several months. Dr. Blas told her that there might be a blockage somewhere. She has always had normal pap smears prior to her hyst and she has done pap smears since then of the top of the vagina. The bleeding has been going on for a long time Reports vomiting that is severe and associated with worsening pain. Has tried much for the pain because she can't keep much down. She has tried phenergan suppositories and zofran (reglan she is allergic to, compazine worsens anxiety). Urinating less probably dehydrated. She states she always feels nauseous. Patient reports that she is a hard stick for a PIV which is why she doesn't go to [place] or [place]. She has had diarrhea for the last 2-3 months. She is trying be worked up by GI - she hasn't seen them but she did have an upper endoscopy and didn't see anything. She has tried to get a CT enterography but CT wouldn't approve it. She hasn't been able to get in to see her GI. Patient has been hospitalized for her asthma and has been on a lot of steroids. 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 Last hospitalized a couple years ago. Not Intubated. Oncology History No overview note Coni : Reports Early satiety Reports Abdominal distention Denies Leg swelling Reports Shortness of breath Reports Vaginal bleeding Denies Change in bowel habits Denies Change in bladder habits Reports Nausea and vomiting All other systems negative, unless specifically noted in HPI. Past Gynecologic History: OB History 4 Para 3 Term 3 AB Living 3 SAB IAB Ectopic Multiple Live Births 3 No LMP recorded (lmp unknown). Patient has had a hysterectomy. Hormonal Contraceptives Yes OCPs HRT use No History of abnormal pap No Past Surgical History: Procedure Laterality Date APPENDECTOMY SECTION CHOLECYSTECTOMY DILATION AND CURETTAGE OF UTERUS HYSTERECTOMY 10/01/2021 TUBAL LIGATION Has had 3 sections Her appendix was removed when - done laparoscopically Her gallbladder was removed at age 13 with a ruptured gallbladder - she had a drain in and was hospitalized Past Medical History: Diagnosis Date Anxiety Asthma BV (bacterial vaginosis) Depression Migraine Seizure (CMS-HCC) Lamictal for non-epileptiform seizure and depression/anxiety - seizure looks like a Grand Mal and migraines Family History Problem Relation Age of Onset Cystic fibrosis Mother Cystic fibrosis Father Ovarian cancer Maternal Aunt She has not been tested for CF - patient's daughter had primary ciliary dyskinesia Social History Tobacco Use Smoking status: Never Smokeless tobacco: Never Substance Use Topics Alcohol use: Not Currently Review of Symptoms: Pertinent items are noted in HPI. Objective: Pulse 77 Temp 36.6 C (97.9 F) (Temporal) Ht 154.9 cm (5' 1 ) Wt 109.7 kg (241 lb 12.8 oz) LMP (LMP Unknown) SpO2 99% BMI 45.69 kg/m ECO- Asymptomatic General appearance: alert, appears stated age and cooperative Head: Normocephalic, without obvious abnormality, atraumatic Lungs: clear to auscultation bilaterally Breasts: normal appearance, no masses or tenderness Heart: regular rate and rhythm, S1, S2 normal, no murmur, click, rub or gallop Abdomen: abnormal findings: soft, tender diffusely to palpation particularly over the bilateral rectus muscles Pelvic: Absence of cervix and uterus. Diffuse bilateral levator tenderness. Pain to palpation of vaginal cuff with worsening of pain with palpation of RLQ. Vagina normal without discharge or lesions. Exam chaperoned by: Sofia Ku MA Extremities: extremities normal, atraumatic, no cyanosis or edema Skin: Skin color, texture, turgor normal. No rashes or lesions Lymph nodes: Cervical, supraclavicular, and groin nodes normal. Neurologic: Grossly normal Labs: Lab Results Component Value Date WBC 6.3 02/09/2024 HGB 13.7 02/09/2024 HCT 39.7 02/09/2024 MCH 29.5 02/09/2024 MCHC 34.5 02/09/2024 PLT 287 02/09/2024 MPV 8.0 02/09/2024 RDW 13.8 02/09/2024 Lab Results Component Value Date BUN 9 02/09/2024 K 3.2 (L) 02/09/2024 CL 104 02/09/2024 ALBUMIN 4.7 02/09/2024 AST 26 02/09/2024 AST 17 01/23/2024 No results found for: GGT No results found for: LDH Lab Results Component Value Date MG 1.8 12/20/2021 No results found for: PHOS No results found for: URIC No results found for: CA125 No results found for: CEA Path: Pathology/Cytology Results No results found for the last 720 hours. Imaging: CT abdomen and pelvis with contrast CT ABDOMEN AND PELVIS W CONT CLINICAL INFORMATION: 28 years old Female with abdominal pain that radiates to the back. TECHNIQUE/PROCEDURE: CT Abdomen and Pelvis with intravenous contrast. All CT scans at this facility use dose modulation, iterative reconstruction, and/or weight based dosing when appropriate to reduce radiation dose to as low as reasonably achievable Contrast: 100 mL Omnipaque 300 Diagnostic quality: Satisfactory COMPARISON: CT abdomen pelvis dated 12/20/2021 FINDINGS: Lower chest: Mild dependent atelectasis. Linear atelectasis or scarring in the right lower lobe. Liver: Focal fatty deposition along the falciform ligament. Gallbladder and bile ducts: Gallbladder surgically absent. No biliary dilatation. Adrenal glands: Unremarkable. Spleen: Unremarkable. Pancreas: Unremarkable. Kidneys, ureters, bladder: Unremarkable. Reproductive organs: Uterus is surgically absent. There is a 4.7 cm thin-walled cystic lesion with small fluid/fluid level in the right ovary. Vasculature: No calcification of the abdominal aorta, focal dilation, or aneurysm. Celiac trunk, SMA, ANDREW are patent. Portal vein and confluence are patent. Peritoneum and retroperitoneum:No pneumoperitoneum or retroperitoneal fluid collection. GI: No hiatal hernia. No evidence of bowel obstruction. Appendix is surgically absent. Mild fecal burden. No evidence of acute diverticulitis. Bones and soft tissues: No suspicious osseous lesion. Postsurgical changes within the anterior abdominal soft tissues. Lymphadenopathy: No lymphadenopathy. IMPRESSION: * 4.7 cm thin-walled cystic lesion with small fluid/fluid level within the right ovary which may represent a hemorrhagic ovarian cyst. Recommend pelvic ultrasound for further evaluation if clinically indicated. Approved by Resident Piero Hernandez DO on 02/10/2024 12:45 AM Sundar Calloway MD have personally reviewed the image(s) and agree with and/or edited the report Finalized by Sundar Solo MD on 02/10/2024 12:59 AM Assessment: Patient is diagnosed with Patient Active Problem List Diagnosis Encounter for observation of suspected anomaly not found LOC (loss of consciousness) ([facility]) Migraine with aura and without status migrainosus, not intractable Bilateral occipital neuralgia Asthma without status asthmaticus Anxiety Depressive disorder Seizure-like activity (CMS-HCC) Simple partial seizure disorder (CMS-HCC) Psychogenic nonepileptic seizure Acute cough Plan: 1. Right sided ovarian cyst, pelvic pain - I reviewed that the cyst itself is of low concern for malignancy based on my CT review. Awaiting US images. Will obtain tumor markers. - I reviewed with the patient that she likely has a multiple etiologies and multifactorial pelvic pain. I do think she would benefit again from pelvic floor physical therapy and continued follow up. It is possible that some of her pelvic pain is related to the right-sided ovarian cyst but it is also possible that it is not related at all and bilateral oophorectomy may not improve her pain. She has tried multiple other options including prior surgeries, ovulation suppression, and hysterectomy. I counseled her on the risks of surgical menopause including osteoporosis, cognitive health decline, cardiac events, and increase in all cause mortality. Some of these can be mitigated with hormone replacement therapy. The patient understands and still wishes to proceed with bilateral oophorectomy. - Consented for robotic FANNY, BSO, possible vaginal cuff revision with frozen section, possible staging. We discussed the risks of surgery including risk of bleeding, possibly to anemia requiring blood transfusion, risk of infection, and risk of damage to surrounding structures including, but not limited to, bowel, bladder, ureters, nerves, arteries, and veins. We also discussed the risk of need for laparotomy to complete the surgery. Patient expressed understanding and desires to proceed. All questions were answered and the consent form was signed. - Will obtain operative reports from last diagnostic laparoscopy - Send scopolamine patch for n/v - tylenol and muscle relaxants as needed for pain - Ultimately will need re-referral for PFPT and possible trigger point injections 2. Comorbidities - Obesity Body mass index is 45.69 kg/m . - Non-epileptiform seizures - Depression - on lamictal and lithium - Migraines - Moderate persistent asthma - will obtain pulmonary risk stratification 3. Total time spent was 62 minutes: Preparing to see the patient (e.g., review of tests) Performing a medically appropriate examination and/or evaluation Counseling and educating the patient/family/caregiver Ordering medications, tests, or procedures Referring and communicating with other health ocular care technician (not separately reported) Documenting clinical information in the electronic or other health record Independently interpreting results (not separately reported) and communicating results to the patient/family/caregiver Care coordination (not separately reported) [place] and lamictal, trazodone as needed MUNDO MARTINEZ MD documented in this encounter [email or web address] 03-06-2024 History of Presen t illness Narrative Reason for Appointment: Patient ID: Sandie Nicholson is a 28 y.o. female who presents for ER Follow-up Patient presents today for Acute Visit. MEDICATIONS Current Outpatient Medications Medication Instructions promethazine (PHENERGAN) 25 mg, Rectal, Every 6 hours PRN ALLERGIES Allergies Allergen Reactions Dihydroergotamine GI intolerance Chest tightness, numbness and tingling in bilateral extremities, increased anxiety Wound Dressing Adhesive Rash Azithromycin Bee Venom Unknown Carbamazepine Unknown anxiety Ciprofloxacin Hives Clarithromycin GI intolerance Clindamycin Unknown Dextromethorphan Hives Dextromethorphan-Pyrilamine Hives Levetiracetam Itching Other Hives Propranolol Hives Migrianes Vortioxetine Hives Other Reaction(s): intolerance to med Buspirone Hives Cephalexin Hives and Rash Metoclopramide Hives, Unknown and Rash PROBLEMS Active Ambulatory Problems Diagnosis Date Noted Pelvic pain in female 12/19/2022 Mixed bipolar I disorder ([facility]) 01/24/2023 Chronic migraine without aura without status migrainosus, not intractable ([facility]) 01/24/2023 Generalized anxiety disorder ([facility]) 01/24/2023 Persistent disorder of initiating or maintaining sleep 01/24/2023 Mild persistent asthma ([facility]) 01/24/2023 Polycystic ovaries 01/24/2023 Psychogenic nonepileptic seizure ([facility]) 01/24/2023 Class 3 severe obesity due to excess calories without serious comorbidity with body mass index (BMI) of 50.0 to 59.9 in adult ([facility]) 03/21/2023 Mild persistent asthma with (acute) exacerbation ([facility]) 10/10/2023 Fatigue 01/01/2024 Encounter for long-term (current) use of medications 01/01/2024 Pain, dental 01/09/2024 Generalized edema 01/23/2024 SOB (shortness of breath) on exertion 01/23/2024 Intractable nausea and vomiting 02/08/2024 Generalized abdominal pain 02/09/2024 Resolved Ambulatory Problems Diagnosis Date Noted Acute right flank pain 03/21/2023 Acute bronchitis due to other specified organisms 10/10/2023 Past Medical History: Diagnosis Date Acute exacerbation of asthma with allergic rhinitis ([facility]) Allergies Asthma ([facility]) At low risk for fall Bipolar affective, mixed (HCC) ([facility]) Change in blood pressure Cholecystitis 2008 Depressive disorder ([facility]) OMID (generalized anxiety disorder) ([facility]) History of hysterectomy 10/01/2021 Insomnia, persistent Migraines ([facility]) Mild persistent asthma without complication ([facility]) Morbid obesity with BMI of 40.0-44.9, adult ([facility]) PCOS (polycystic ovarian syndrome) Right otitis media Seizures ([facility]) HISTORY PAST MEDICAL HISTORY SOCIAL HISTORY Past Medical History: Diagnosis Date Acute exacerbation of asthma with allergic rhinitis ([facility]) Allergies Asthma ([facility]) At low risk for fall Bipolar affective, mixed (HCC) ([facility]) Change in blood pressure high and low Cholecystitis 2008 Chronic migraine without aura without status migrainosus, not intractable ([facility]) Depressive disorder ([facility]) OMID (generalized anxiety disorder) ([facility]) History of hysterectomy 10/01/2021 Insomnia, persistent Migraines ([facility]) Mild persistent asthma without complication ([facility]) Morbid obesity with BMI of 40.0-44.9, adult ([facility]) PCOS (polycystic ovarian syndrome) Psychogenic nonepileptic seizure ([facility]) Right otitis media Seizures ([facility]) stressed induced Social History Tobacco Use Smoking status: Never Passive exposure: Never Smokeless tobacco: Never Vaping Use Vaping status: Never Used Substance Use Topics Alcohol use: Never Comment: Caffeine intake: >4 cups per day Drug use: Never FAMILY HISTORY Family History Problem Relation Name Age of Onset Allergies Mother Diabetes Mother Asthma Mother Diabetes insipidus Mother Heart disease Father Asthma Father Chromosomal disorder Daughter Epididymitis Daughter Mental illness Son Mental illness Son SURGICAL HISTORY Past Surgical History: Procedure Laterality Date APPENDECTOMY 03/2016 SECTION, LOW TRANSVERSE 09/30/2016 SECTION, LOW TRANSVERSE 05/22/2015 CHOLECYSTECTOMY 05/05/2015 HYSTERECTOMY 10/01/2021 LAPAROSCOPY DIAGNOSTIC / BIOPSY / ASPIRATION / LYSIS 07/21/2022 MULTIPLE TOOTH EXTRACTIONS SKIN TAG REMOVAL 04/03/2019 benign skin tag pathology TUBAL LIGATION 08/20/2019 REVIEW OF SYSTEMS Review of Systems: Review of Systems Constitutional: Negative. HENT: Negative. Eyes: Negative. Respiratory: Negative. Cardiovascular: Negative. Gastrointestinal: Negative. Genitourinary: Positive for pelvic pain and vaginal bleeding. Musculoskeletal: Negative. Skin: Negative. Neurological: Negative. All other systems reviewed and are negative. Hematological: Negative. Endocrine: Negative. Allergic/Immunologic: Negative. OBJECTIVE Objective: Physical Exam Constitutional: Appearance: Normal appearance. She is well-developed. Cardiovascular: Rate and Rhythm: Normal rate and regular rhythm. Pulmonary: Effort: Pulmonary effort is normal. Breath sounds: Normal breath sounds. Abdominal: General: Bowel sounds are normal. There is no distension. Palpations: Abdomen is soft. Tenderness: There is no abdominal tenderness. There is no guarding or rebound. Musculoskeletal: General: No swelling. Normal range of motion. Right lower leg: No edema. Left lower leg: No edema. Neurological: Mental Status: She is alert and oriented to person, place, and time. Skin: General: Skin is warm and dry. Psychiatric: Mood and Affect: Mood normal. Behavior: Behavior normal. Vitals and nursing note reviewed. Exam conducted with a hydrographic surveyor present. Vitals: Estimated body mass index is 45.69 kg/m as calculated from the following: Height as of 02/08/: 5' 1 . Weight as of this encounter: 241 lb 12.8 oz. BP: 122/84 No LMP recorded. Patient has had a hysterectomy. ASSESSMENT & PLAN ICD-10-CM 1. Cyst of right ovary N83.201 2. Pelvic pain in female R10.2 3. Pelvic peritoneal adhesions, female N73.6 Pt presents for ER follow up for pelvic pain and ovarian cyst. Dr Blas reviewed pictures from previous surgery, extensive adhesions noted on ovaries. Discussed referral to Dr Hernandez for consult on removing ovaries d/t pain adhesions and ovarian cysts. Pt voiced understanding. Pt to return for annual unless needed sooner. Pt had multiple surgeries and extensive adhesions noted. Documented by Yumiko Worrell LPN on behalf of: Zay Blas DO documented in this encounter [facility] 02-28-2024 History of Presen t illness Narrative Reason for Appointment: Patient ID: Sandie Nicholson is a 28 y.o. female who presents for follow up ultrasound Patient presents today for Follow up appointment to discuss results. MEDICATIONS Current Outpatient Medications Medication Instructions promethazine (PHENERGAN) 25 mg, Rectal, Every 6 hours PRN ALLERGIES Allergies Allergen Reactions Dihydroergotamine GI intolerance Chest tightness, numbness and tingling in bilateral extremities, increased anxiety Wound Dressing Adhesive Rash Azithromycin Bee Venom Unknown Carbamazepine Unknown anxiety Ciprofloxacin Hives Clarithromycin GI intolerance Clindamycin Unknown Dextromethorphan Hives Dextromethorphan-Pyrilamine Hives Levetiracetam Itching Other Hives Propranolol Hives Migrianes Vortioxetine Hives Other Reaction(s): intolerance to med Buspirone Hives Cephalexin Hives and Rash Metoclopramide Hives, Unknown and Rash PROBLEMS Active Ambulatory Problems Diagnosis Date Noted Pelvic pain in female 12/19/2022 Mixed bipolar I disorder ([facility]) 01/24/2023 Chronic migraine without aura without status migrainosus, not intractable ([facility]) 01/24/2023 Generalized anxiety disorder ([facility]) 01/24/2023 Persistent disorder of initiating or maintaining sleep 01/24/2023 Mild persistent asthma ([facility]) 01/24/2023 Polycystic ovaries 01/24/2023 Psychogenic nonepileptic seizure ([facility]) 01/24/2023 Class 3 severe obesity due to excess calories without serious comorbidity with body mass index (BMI) of 50.0 to 59.9 in adult ([facility]) 03/21/2023 Mild persistent asthma with (acute) exacerbation ([facility]) 10/10/2023 Fatigue 01/01/2024 Encounter for long-term (current) use of medications 01/01/2024 Pain, dental 01/09/2024 Generalized edema 01/23/2024 SOB (shortness of breath) on exertion 01/23/2024 Intractable nausea and vomiting 02/08/2024 Generalized abdominal pain 02/09/2024 Resolved Ambulatory Problems Diagnosis Date Noted Acute right flank pain 03/21/2023 Acute bronchitis due to other specified organisms 10/10/2023 Past Medical History: Diagnosis Date Acute exacerbation of asthma with allergic rhinitis ([facility]) Allergies Asthma ([facility]) At low risk for fall Bipolar affective, mixed (HCC) ([facility]) Change in blood pressure Cholecystitis 2009 Depressive disorder ([facility]) OMID (generalized anxiety disorder) ([facility]) History of hysterectomy 10/01/2021 Insomnia, persistent Migraines ([facility]) Mild persistent asthma without complication ([facility]) Morbid obesity with BMI of 40.0-44.9, adult ([facility]) PCOS (polycystic ovarian syndrome) Right otitis media Seizures ([facility]) HISTORY PAST MEDICAL HISTORY SOCIAL HISTORY Past Medical History: Diagnosis Date Acute exacerbation of asthma with allergic rhinitis ([facility]) Allergies Asthma ([facility]) At low risk for fall Bipolar affective, mixed (HCC) ([facility]) Change in blood pressure high and low Cholecystitis 2008 Chronic migraine without aura without status migrainosus, not intractable ([facility]) Depressive disorder ([facility]) OMID (generalized anxiety disorder) ([facility]) History of hysterectomy 10/01/2021 Insomnia, persistent Migraines ([facility]) Mild persistent asthma without complication ([facility]) Morbid obesity with BMI of 40.0-44.9, adult ([facility]) PCOS (polycystic ovarian syndrome) Psychogenic nonepileptic seizure ([facility]) Right otitis media Seizures ([facility]) stressed induced Social History Tobacco Use Smoking status: Never Passive exposure: Never Smokeless tobacco: Never Vaping Use Vaping status: Never Used Substance Use Topics Alcohol use: Never Comment: Caffeine intake: >4 cups per day Drug use: Never FAMILY HISTORY Family History Problem Relation Name Age of Onset Allergies Mother Diabetes Mother Asthma Mother Diabetes insipidus Mother Heart disease Father Asthma Father Chromosomal disorder Daughter Epididymitis Daughter Mental illness Son Mental illness Son SURGICAL HISTORY Past Surgical History: Procedure Laterality Date APPENDECTOMY 03/2016 SECTION, LOW TRANSVERSE 09/30/2016 SECTION, LOW TRANSVERSE 05/22/2015 CHOLECYSTECTOMY 05/05/2015 HYSTERECTOMY 10/01/2021 LAPAROSCOPY DIAGNOSTIC / BIOPSY / ASPIRATION / LYSIS 07/21/2022 MULTIPLE TOOTH EXTRACTIONS SKIN TAG REMOVAL 04/03/2019 benign skin tag pathology TUBAL LIGATION 08/20/2019 REVIEW OF SYSTEMS Review of Systems: Review of Systems Constitutional: Negative. HENT: Negative. Eyes: Negative. Respiratory: Negative. Cardiovascular: Negative. Gastrointestinal: Positive for abdominal pain, nausea and vomiting. Genitourinary: Positive for pelvic pain. Musculoskeletal: Negative. Skin: Negative. Neurological: Negative. All other systems reviewed and are negative. Hematological: Negative. Endocrine: Negative. Allergic/Immunologic: Negative. OBJECTIVE Objective: Physical Exam Constitutional: Appearance: Normal appearance. She is well-developed. Cardiovascular: Rate and Rhythm: Normal rate and regular rhythm. Pulmonary: Effort: Pulmonary effort is normal. Breath sounds: Normal breath sounds. Abdominal: General: Bowel sounds are normal. There is no distension. Palpations: Abdomen is soft. Tenderness: There is no abdominal tenderness. There is no guarding or rebound. Musculoskeletal: General: No swelling. Normal range of motion. Right lower leg: No edema. Left lower leg: No edema. Neurological: Mental Status: She is alert and oriented to person, place, and time. Skin: General: Skin is warm and dry. Psychiatric: Mood and Affect: Mood normal. Behavior: Behavior normal. Vitals and nursing note reviewed. Exam conducted with a hydrographic surveyor present. Vitals: Estimated body mass index is 47.31 kg/m as calculated from the following: Height as of 02/09/24: 5' 1 . Weight as of this encounter: 250 lb 6.4 oz. BP: 126/80 No LMP recorded. Patient has had a hysterectomy. ASSESSMENT & PLAN ICD-10-CM 1. Pelvic pain in female R10.2 2. Complex ovarian cyst N83.299 Lactate dehydrogenase, isoenzymes CEA HCG, tumor marker CA 125 AFP tumor marker Lactate dehydrogenase, isoenzymes CEA HCG, tumor marker CA 125 AFP tumor marker Pt presents to discuss ultrasound- pt has complex cyst noted on ultrasound- pt given tumor marker for pt to have obtained. Pt given ultrasound to have obtained in 6 weeks to view for resolution. Pt to referred to pain management. Pt unable to keep nausea meds down. Pt will see GI in interim and return in 6 weeks for ultrasound and annual exam. Documented by Yumiko Worrell LPN on behalf of: Zay Blas DO documented in this encounter [facility] 02-26-2024 Telephone encounter Note Pt advised [facility] 02-26-2024 Miscellaneous Notes Pt advised [facility] Patients elizabeth harmon is gma and they are both pts of DB. She wondered if she could become a registry np here with us. And if not db she asked for dominic. Pt does know we are not accepting new patients but asked if I could send this back - was told no on Monday. documented in this encounter [facility] 02-26-2024 Telephone encounter Note [facility] ACCEPT PT [facility] 02-26-2024 Telephone encounter Note Patients elizabeth harmon is gma and they are both pts of DB. She wondered if she could become a registry np here with us. And if not db she asked for dominic. Pt does know we are not accepting new patients but asked if I could send this back - was told no on Monday. [facility] 02-22-2024 Telephone encounter Note Summary: MARY Jordan Images from the original note were not included. Prior Authorization submitted via CoverMyMeds on 02/22/2024: Insurance: [place] Medicaid Medication: Zolmitriptan Chong Code: [email or web address] Awaiting Response [facility] 02-22-2024 Miscellaneous Notes Summary: [place] Zolmitriptan Images from the original note were not included. Prior Authorization submitted via CoverMyMeds on 02/22/2024: Insurance: [place] Medicaid Medication: Zolmitriptan Chong Code: [email or web address] Awaiting Response documented in this encounter [facility] 02-09-2024 History of Presen t illness Narrative Associated Problem(s): Mild persistent asthma with (acute) exacerbation ([facility]) Recent flare but not able to [...] down 20 pounds in the past 2 /2 weeks. Will attempt to get zofran pump from home health. Check CT abdomen. Follow with GI. Relevant Orders CT abdomen pelvis w and wo IV contrast Generalized abdominal pain - Primary Unclear cause of pain and check CT. Referred to GI. Relevant Orders CT abdomen pelvis w and wo IV contrast documented in this encounter [facility] 01-30-2024 Note Addended by: LOGAN BARTH on: 01/30/2024 02:59 PM Modules accepted: Orders [facility] 01-30-2024 Telephone encounter Note The following approved medication requests have been transmitted electronically. Requested Prescriptions Signed Prescriptions Disp Refills ZOLMitriptan (ZOMIG) 5 mg nasal spray 12 Each 5 Sig: Use 1 [place] in the nose as needed at onset of migraine headache. If symptoms persist or return, may repeat dose in other nostril after 2 hours. Maximum of 2 sprays per 24 hours Authorizing Provider: LOGAN BARTH APRN.CNP [facility] 01-30-2024 Miscellaneous Notes Addended by: LOGAN BARTH on: 01/30/2024 02:59 PM Modules accepted: Orders The following approved medication requests have been transmitted electronically. Requested Prescriptions Signed Prescriptions Disp Refills ZOLMitriptan (ZOMIG) 5 mg nasal spray 12 Each 5 Sig: Use 1 [place] in the nose as needed at onset of migraine headache. If symptoms persist or return, may repeat dose in other nostril after 2 hours. Maximum of 2 sprays per 24 hours Authorizing Provider: LOGAN BARTH APRN.CNP Dispense 12 pls. I rewrote the rx. Logan Barth APRN.CNP Per last Rx on 11/10/2023: Disp Refills Start End ZOLMitriptan (ZOMIG) 5 mg nasal spray 10 Each 5 11/10/2023 -- Sig: Use 1 [place] in the nose as needed at onset [...] to verify quantity on zolmitriptan. Callback number: [phone] documented in this encounter [facility] 01-30-2024 Telephone encounter Note Dispense 12 pls. I rewrote the rx. Logan Barth APRN.CNP [facility] 01-29-2024 Telephone encounter Note Per last Rx on 11/10/2023: Disp Refills Start End ZOLMitriptan (ZOMIG) 5 mg nasal spray 10 Each 5 11/10/2023 -- Sig: Use 1 [place] in the nose as needed at onset of migraine headache. If symptoms persist or return, may repeat dose in other nostril after 2 hours. Maximum of 2 sprays per 24 hours I called the pharmacy and hey need to know if Provider would like to dispense #6 or #12 cartridges. They do not come in 10. Please advise. Thank you [facility] 01-29-2024 Telephone encounter Note Name of Caller: nicky Relationship to patient: pharmacy Last visit in this department: 09/19/2023 Reason for Call: Other : need to verify quantity on zolmitriptan. Callback number: [phone] [facility] 01-23-2024 History of Presen t illness Narrative Associated Problem(s): SOB (shortness of breath) on exertion Severe symptom and check CXR. Use albuterol PRN and start prednisone. Associated Problem(s): Mild persistent asthma with (acute) exacerbation ([facility]) Continued symptoms and treat with prednisone [...] persistent asthma with (acute) exacerbation ([facility]) - Primary Continued symptoms and treat [...] CBC and differential documented in this encounter [facility] 01-22-2024 Note HNO ID: [id number] Author: JOHANA CANCINO RN Service: ? Author Type: Registered Nurse Type: Progress Notes Filed: 01/22/2024 15:58 Note Text: Pt in for third day of infusion. Pt rated headache 9/10. Pt has severe nausea and moderate dizziness. Educated pt on medications to be administered. Pt agreed to proceed as ordered. Starter Mechanic yes Patient reports she stopped vomiting but nausea is still pretty severe. She continues to retain fluids, hands and lower extremities appear puffy, non pitting edema. Jace Morales CNP aware, patient seen. Patient referred to pcp for s/s management. Patient called pcp's office and got an appointment for 12. Patient aware if s/s of shortness of [...] room via wheelchair to her in the [facility]. [facility] 01-22-2024 History of Presen t illness Narrative Pt in for third day of infusion. Pt rated headache 9/10. Pt has severe nausea and moderate dizziness. Educated pt on medications to be administered. Pt agreed to proceed as ordered. Starter Mechanic yes Patient reports she stopped vomiting but [...] in the lobby. documented in this encounter [facility] 01-22-2024 Note HNO ID: [id number] Author: RAIZA MORALES APRN.DIET COUNSELOR Service: ? Author Type: Nurse Practitioner [...] Lymph 1.00 - 4.00 k/uL 0.84 Abs [place] <0.87 k/uL 0.06 Abs Eosin <0.46 k/uL [...] ZOLMitriptan (ZOMIG) 5 mg nasal sprayUse 1 [place] in the nose as needed at onset [...] and clear, coherent, and relevant. Short and group home memory, cognition and general fund of [...] which included p (more content not included)... [facility] 01-22-2024 History of Presen t illness Narrative [...] Lymph 1.00 - 4.00 k/uL 0.84 Abs [place] <0.87 k/uL 0.06 Abs Eosin <0.46 k/uL [...] ZOLMitriptan (ZOMIG) 5 mg nasal spray^Use 1 [place] in the nose as needed at onset [...] and clear, coherent, and relevant. Short and rat exterminator memory, cognition and general fund of knowledge [...] which included preparing to see the patient, [id number] patient care, completing clinical documentation, and obtaining and/or reviewing separately obtained history. Raiza Morales APRN.FADY Headache Section [facility] January 22, 2024 documented in this encounter [facility] 01-19-2024 Note HNO ID: [id number] Author: JOHANA CANCINO RN Service: ? Author Type: Registered Nurse Type: Progress Notes Filed: 01/19/2024 11:55 Note Text: Pt in for second day of infusion. Pt rated headache 10/10. Pt has severe nausea and severe dizziness. Educated pt on medications to be administered. Pt agreed to proceed as ordered. Starter Mechanic: yes Patient took Valium 10 mg tabl [...] Pt d/c via wheelchair to her in [facility]. Instructed patient and to take caution with ambulating. Patient is feeling sedated. [facility] 01-19-2024 History of Presen t illness Narrative Pt in for second day of infusion. Pt rated headache 10/10. Pt has severe nausea and severe dizziness. Educated pt on medications to be administered. Pt agreed to proceed as ordered. Starter Mechanic: yes Patient took Valium 10 mg tabl [...] some time, had pneumonia post covid.. Per [place], is nausea/vomiting persist pt to see pcp/GI. Pt verbalized understanding. 1130 Pt assisted to the restroom via wheelchair, pt is feeling dizzy and sleepy. 1134 Pt requested Zofran for nausea, medicated as ordered. 1143 Tx complete. Headache 5/10, nausea improving, mild-moderate dizziness. Pt d/c via wheelchair to her in [facility]. Instructed patient and to take caution with ambulating. Patient is feeling sedated. documented in this encounter [facility] 01-17-2024 Note HNO ID: [id number] Author: CARLINE MAYNARD RN Service: ? Author [...] PRN Zofran given for nausea. 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 [facility] 01-17-2024 History of Presen t illness Narrative [...] PRN Zofran given for nausea. 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 documented in this encounter [facility] 01-17-2024 Note HNO ID: [id number] Author: ОЛЬГА AGUILAR APRN.DIET COUNSELOR Service: ? Author Type: Nurse Practitioner Type: Progress Notes Filed: 01/17/2024 07:59 Note Text: Headache Center - Virtual Visit Infusion Triage This visit was conducted as a virtual visit, with patient's permission, via ZOOM. It required patient-provider interaction for the medical decision making as documented below. Patient stated name and Patient location [place], [place] I have communicated my name and active licensure. The patient's identity and physical location were verified at the time of this visit. Either the patient or their legal customer loyalty representative has been informed of the risks [...] have you tried for this headache cycle: Parafon Forte, New health events/diagnosis since last visit (ID/stroke/DM/HTN/etc): denies Cardiovascular risk factors: obesity Past infusion [...] Lymph 1.00 - 4.00 k/uL 0.84 Abs [place] <0.87 k/uL 0.06 Abs Eosin <0.46 k/uL <0.03 Abs [place] <0.11 k/uL <0.03 NRBC /100 WBC 0.0 Analgesic Ketorolac (Toradol) Anti-Convulsant Lamotrigine (Lamictal) Topiramate (Topamax, Trokendi XL, Qudexy) Anti-Depressant and Antipsychotic Amitriptyline (Elavil) Shady[place] (Eskalith, Lithobid) Nortriptyline (Pamelor, Aventyl) Anti-Migraine Dihydroergotamine [...] sprayUse 1 Sp (more content not included)... [facility] 01-16-2024 Telephone encounter Note PAPO: 12/05/2023 with Ольга Aguilar APRN.DIET COUNSELOR [facility] 01-16-2024 Miscellaneous Notes PAPO: 12/05/2023 with Ольга Aguilar APRN.DIET COUNSELOR documented in this encounter [facility] 01-09-2024 History of Presen t illness Narrative Associated Problem(s): Chronic migraine without aura without status migrainosus, not intractable ([facility]/HCC) [place] worse and follow with specialists. Associated Problem(s): Class 3 severe obesity due to excess calories without serious comorbidity with body mass index (BMI) of 50.0 to 59.9 in adult ([facility]) Patient overweight and difficult time losing [...] labs. Associated Problem(s): Mixed bipolar I disorder ([facility]) Denies worsening symptoms and follow with [...] (BMI) of 50.0 to 59.9 in adult ([facility]) Patient overweight and difficult time losing [...] 50 MG tablet documented in this encounter [facility] 01-05-2024 Note HNO ID: [id number] Author: LENNIE PALACIOS RN Service: ? Author [...] after Benadryl given. 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 [facility] 01-05-2024 History of Presen t illness Narrative [...] after Benadryl given. 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 documented in this encounter [facility] 12-05-2023 History of Presen t illness Narrative Images from the original note were not included. Headache Center - Follow up Virtual Visit Last OV: 08/23/23 Sona Barth APRN Accompanied by: Self This visit was conducted as a virtual visit, with patient's permission, via ZOOM. It required patient-provider interaction for the medical decision making as documented below. Patient stated name and Patient location [place], [place] I have communicated my name and active licensure. The patient's identity and physical location were verified at the time of this visit. Either the patient or their legal customer loyalty representative has been informed of the risks [...] (ZOMIG) 5 mg nasal spray Use 1 [place] in the nose as needed at onset [...] these with the patient: yes Ольга Aguilar APRN.DIET COUNSELOR Studies to Review: No New Health Issues: [...] XL, Qudexy) Anti-Depressant and Antipsychotic Amitriptyline (Elavil) Shadybrook (Eskalith, Lithobid) Nortriptyline (Pamelor, Aventyl) Blood Pressure [...] which included preparing to see the patient, [id number] patient care, completing clinical documentation, and counseling and educating the patient/family/caregiver. Ольга Aguilar APRN.FADY documented in this encounter [facility] 12-05-2023 Note HNO ID: [id number] Author: ОЛЬГА AGUILAR APRN.FADY Service: ? Author [...] below. Patient stated name and Patient location [place], [place] I have communicated my name and active licensure. The patient's identity and physical location were verified at the time of this visit. Either the patient or their legal customer loyalty representative has been informed of the risks [...] (ZOMIG) 5 mg nasal spray Use 1 [place] in the nose as needed at onset [...] 03/22/2023 07/10/2023 1 (more content not included)... [facility] 11-15-2023 History of Presen t illness Narrative [...] MG per tablet documented in this encounter [facility] 11-10-2023 Telephone encounter Note The following approved medication requests have been transmitted electronically. Requested Prescriptions Signed Prescriptions Disp Refills ZOLMitriptan (ZOMIG) 5 mg nasal spray 10 Each 5 Sig: Use 1 [place] in the nose as needed at onset [...] spasm (migraine). Authorizing Provider: LOGAN BARTH APRN.CNP [facility] 11-10-2023 Miscellaneous Notes The following approved medication requests have been transmitted electronically. Requested Prescriptions Signed Prescriptions Disp Refills ZOLMitriptan (ZOMIG) 5 mg nasal spray 10 Each 5 Sig: Use 1 [place] in the nose as needed at onset [...] spray 10 Each 5 Sig: Use 1 [place] in the nose as needed at onset [...] muscle spasm (migraine). documented in this encounter [facility] 11-10-2023 Telephone encounter Note The following approved medication requests have been transmitted electronically. Requested Prescriptions Signed Prescriptions Disp Refills promethazine (PHENERGAN) 25 mg tablet 90 tablet 5 Sig: Take 1 tablet by mouth every 4 hours as needed. FOR NAUSEA Authorizing Provider: LOGAN BARTH APRN.CNP [facility] 11-10-2023 Miscellaneous Notes The following [...] [facility] documented in this encounter [facility] 11-10-2023 Telephone encounter Note Physician: Tab Call from patient requesting refill. Please E-Scribe Last office visit 09/19/23 with Green in person Next office visit N/A Requested Prescriptions Pending Prescriptions Disp Refills promethazine (PHENERGAN) 25 mg tablet 90 tablet 1 Sig: Take 1 tablet by mouth every 4 hours as needed. FOR NAUSEA Pharmacy Name: [facility] 11-10-2023 Telephone encounter Note patient requesting refill via Mychart. Last OV: 09/19/2023 Future OV: None scheduled Last prescribed: 4 months ago (07/10/2023) by Logan Barth APRN.DIET COUNSELOR Requested Prescriptions Pending Prescriptions Disp Refills ZOLMitriptan (ZOMIG) 5 mg nasal spray 10 Each 5 Sig: Use 1 [place] in the nose as needed at onset [...] day as needed for muscle spasm (migraine). [facility] 10-13-2023 Note HNO ID: [id number] Author: JOHANA CANCINO RN Service: ? Author Type: Registered Nurse Type: Progress Notes Filed: 10/13/2023 14:00 Note Text: Pt in for Vyepti infusion. Pt rated headache 8 /10. Pt has severe nausea and mild dizziness. Educated pt on medications to be administered. Pt agreed to proceed as ordered. Starter Mechanic: yes Zofran 8 mg IVP given for [...] drive patient home. Patient d/c via wheelchair.. [facility] 10-13-2023 History of Presen t illness Narrative Pt in for Vyepti infusion. Pt rated headache 8 /10. Pt has severe nausea and mild dizziness. Educated pt on medications to be administered. Pt agreed to proceed as ordered. Starter Mechanic: yes Zofran 8 mg IVP given for [...] d/c via wheelchair.. documented in this encounter [facility] 10-10-2023 History of Presen t illness Narrative Associated Problem(s): Mild persistent asthma with (acute) exacerbation ([facility]) Continued symptoms and treat with prednisone [...] MG per tablet documented in this encounter [facility] 09-19-2023 History of Presen t illness Narrative [...] XL, Qudexy) Anti-Depressant and Antipsychotic Amitriptyline (Elavil) [place] (Eskalith, Lithobid) Nortriptyline (Pamelor, Aventyl) Anti-Migraine Dihydroergotamine [...] ZOLMitriptan (ZOMIG) 5 mg nasal spray^Use 1 [place] in the nose as needed at onset [...] these with the patient: yes Logan Barth APRN.DIET COUNSELOR HEADACHE SCORES: 03/22/2023 07/10/2023 09/19/2023 Headache Questions [...] spontaneous and fluent without dysarthria. Short and group home memory, cognition and general fund of [...] XL, Qudexy) Anti-Depressant and Antipsychotic Amitriptyline (Elavil) [place] (Eskalith, Lithobid) Nortriptyline (Pamelor, Aventyl) Blood Pressure [...] which included preparing to see the patient, [id number] patient care, completing clinical documentation, obtaining and/or reviewing separately obtained history, counseling and educating the patient/family/caregiver, ordering medications, tests, or procedures, and care coordination (not separately reported). Logan Barth APRN.CNP Headache Section [facility] September 19, 2023 documented in this encounter [facility] 09-19-2023 Note HNO ID: [id number] Author: LOGAN BARTH APRN.CNP Service: ? Author [...] XL, Qudexy) Anti-Depressant and Antipsychotic Amitriptyline (Elavil) [place] (Eskalith, Lithobid) Nortriptyline (Pamelor, Aventyl) Anti-Migraine Dihydroergotamine [...] ZOLMitriptan (ZOMIG) 5 mg nasal sprayUse 1 [place] in the nose as needed at onset [...] these with the patient: yes Logan Barth APRN.DIET COUNSELOR HEADACHE SCORES: 03/22/2023 07/10/2023 09/19/2023 Headache Questions [...] of headache after (more content not included)... [facility] 08-18-2023 Instructions Curtis Lepe PA-C - 08/18/2023 2:39 PM EDT You received a greater occipital nerve block (GONB) today You may feel sore tomorrow at the site of the injection. You may use heat or ice for discomfort and gentle stretching. This should resolve in 24-36 hours. Greater Occipital Nerve Block (GONB) Article in [employer] Journal By: Molina Barraza MD Many patients with chronic headache report that their pain typically arises from the neck or, more specifically, the base of the skull. Often that pain arises on one side or the other and extends forward to involve the top of the head, the mandaeism, the forehead, the eye or some combination [...] at least one more try. https://americanheadachesociety .org/wp-content/uploads/ /Ynesydndj-Tyzur-Lsvnde_Vux-201 0.pdf documented in this encounter [facility] 08-18-2023 History of Presen t [...] 1 month Curtis Lepe PA-C Headache Section [facility] August 18, 2023 documented in this encounter [facility] 08-18-2023 Note HNO ID: [id number] Author: CURTIS LEPE PA-C Service: ? Author Type: Physician Patch Press Operator Type: Progress Notes Filed: 08/18/2023 14:39 Note [...] 1 month Curtis Lepe PA-C Headache Section [facility] August 18, 2023 [facility] 08-16-2023 Telephone encounter Note Forwarded to provider for review. PAPO: 07/10/2023 Future OV: 09/19/2023 Encounter from [facility] today 08/16/[address] [facility] 08-16-2023 Miscellaneous Notes Forwarded to provider for review. PAPO: 07/10/2023 Future OV: 09/19/2023 Encounter from [facility] today 08/16/2023 documented in this encounter [facility] 07-10-2023 History of Presen t [...] visit. Either the patient or their legal customer loyalty representative has been informed of the risks [...] XL, Qudexy) Anti-Depressant and Antipsychotic Amitriptyline (Elavil) [place]ady[place] (Eskalith, Lithobid) Nortriptyline (Pamelor, Aventyl) Anti-Migraine Dihydroergotamine [...] ZOLMitriptan (ZOMIG) 5 mg nasal spray^Use 1 [place] in the nose as needed at onset [...] these with the patient: yes Logan Barth APRN.DIET COUNSELOR HEADACHE SCORES: 12/12/2022 03/22/2023 07/10/2023 Headache Questions [...] Lymph 1.00 - 4.00 k/uL 0.84 Abs [place] <0.87 k/uL 0.06 Abs Eosin <0.46 k/uL [...] spontaneous and fluent without dysarthria. Short and rat exterminator memory, cognition and general fund of knowledge [...] XL, Qudexy) Anti-Depressant and Antipsychotic Amitriptyline (Elavil) [place] (Eskalith, Lithobid) Nortriptyline (Pamelor, Aventyl) Blood Pressure [...] (ZOMIG) 5 mg nasal spray Use 1 [place] in the nose as needed at onset [...] Service: Virtual Visit 40 minutes Logan Barth APRN.DIET COUNSELOR Headache Section [facility] July 10, 2023 documented in this encounter [facility] 07-10-2023 Note HNO ID: [id number] Author: LOGAN BARTH APRN.FADY Service: ? Author [...] visit. Either the patient or their legal customer loyalty representative has been informed of the risks [...] XL, Qudexy) Anti-Depressant and Antipsychotic Amitriptyline (Elavil) [place] (Eskalith, Lithobid) Nortriptyline (Pamelor, Aventyl) Anti-Migraine Dihydroergotamine [...] ZOLMitriptan (ZOMIG) 5 mg nasal sprayUse 1 [place] in the nose as needed at onset [...] these with the patient: yes Logan Barth APRN.DIET COUNSELOR HEADACHE SCORES: 12/12/2022 03/22/2023 07/10/2023 Headache Questions ER visits since last office visit: 6 6 8 Hospital stays [facility] (more content not included)... [facility] 06-26-2023 Telephone encounter Note Called Pt to clarify ER visit. States she was seen this morning at [facility] and given a Compazine and steroid shot States she cannot remember the name of steroid that was given. Information passed on to care team. Marc TOMAS, RN Clinical Lead Level Designer [facility] 06-26-2023 Miscellaneous Notes Called Pt to clarify ER visit. States she was seen this morning at [facility] and given a Compazine and steroid shot States she cannot remember the name of steroid that was given. Information passed on to care team. Marc TOMAS, RN Clinical Lead Level Designer [facility] documented in this encounter [facility] 06-26-2023 Telephone encounter Note Forwarded to provider for review. PAPO: 04/14/2023 with Suzan Driver APRN.FADY Future OV: None scheduled [facility] 06-26-2023 Miscellaneous Notes Forwarded to provider for review. PAPO: 04/14/2023 with Suzan Driver APRN.DIET COUNSELOR Future OV: None scheduled MyChart message sent to patient to gain more information in regards to patient's migraine. documented in this encounter [facility] 06-26-2023 Telephone encounter Note MyChart message sent to patient to gain more information in regards to patient's migraine. [facility] 04-14-2023 Instructions Suzan Driver APRN.FADY - 04/14/2023 [...] delays. documented in this encounter 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 Short and rat exterminator memory, cognition and general fund of knowledge [...] which included preparing to see the patient, [id number] patient care, completing clinical documentation, obtaining and/or reviewing separately obtained history, performing a medically appropriate examination, counseling and educating the patient/family/caregiver, and ordering medications, tests, or procedures. Suzan Driver APRN.FADY Headache Section [facility] documented in this encounter [facility] 04-14-2023 Note HNO ID: [id number] Author: SUZAN DRIVER APRN.DIET COUNSELOR Service: ? 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 Short and group home memory, cognition and general fund of [...] which included preparing to see the patient, raqf-hx-wgqc patient care, completing clinical documentation, obtaining and/or reviewing separately obtained history, performing a medically appropriate examination, counseling and educating the patient/family/caregiver, and ordering medications, tests, or procedures. Suzan Driver APRN.DIET COUNSELOR Headache Section [facility] 04-14-2023 Note HNO ID: [id number] Author: INOCENCIO NAIR RN Service: ? Author Type: Registered Nurse Type: Progress Notes Filed: 04/14/2023 11:51 Note Text: Pt in for 3rd day of infusion. Pt rated headache 6/10. Pt has severe nausea and moderate dizziness. Educated pt on medications to be administered. Pt agreed to proceed as ordered. 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 @0915: Patient tearful and c/o PIV site burning and very painful. No infiltration or redness of site noted, Ice-pack placed over PIV site. After a few minutes pt reported the ice-pack did not help and wanted PIV to be removed. PIV site removed. Patient remained very anxious and tearful, and requesting if anything else can be given for anxiety. [employer] LEISURE TRAVEL AGENT notified. New PIV site started, 2nd dose of Benadryl given for anxiety. 2nd line: Compazine given for severe nausea. Per [employer] LEISURE TRAVEL AGENT to hold Periactin today as the two doses of Benadryl and Compazine can cause drowsiness. Pts infusion complete, tolerated infusion. Headache 4/10. Pt stated no nausea and moderate dizziness. PIV site removed. Pt discharged from txt room at 1124 via wheelchair to ride in [place]. [facility] 04-14-2023 History of Presen t illness Narrative Pt in for 3rd day of infusion. Pt rated headache 6/10. Pt has severe nausea and moderate dizziness. Educated pt on medications to be administered. Pt agreed to proceed as ordered. 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 @0915: Patient tearful and c/o PIV site burning and very painful. No infiltration or redness of site noted, Ice-pack placed over PIV site. After a few minutes pt reported the ice-pack did not help and wanted PIV to be removed. PIV site removed. Patient remained very anxious and tearful, and requesting if anything else can be given for anxiety. [employer] LEISURE TRAVEL AGENT notified. New PIV site started, 2nd dose of Benadryl given for anxiety. 2nd line: Compazine given for severe nausea. Per [employer] LEISURE TRAVEL AGENT to hold Periactin today as the two doses of Benadryl and Compazine can cause drowsiness. Pts infusion complete, tolerated infusion. Headache 4/10. Pt stated no nausea and moderate dizziness. PIV site removed. Pt discharged from txt room at 1124 via wheelchair to ride in [place]. documented in this encounter [facility] 04-13-2023 Note HNO ID: [id number] Author: JOHANA CANCINO RN Service: ? Author [...] She is working with a psychiatrist in [place] . Voiced stress is her biggest trigger for headaches. 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 I mentioned to patient our reboot program . Patient very interested to learn about it. Message send to our inspector open die and Rhina Lim to set up patient for evaluation. 1020 Patient sleeping on and off. Nausea subsiding. Patient declined Zofran. Stated Zofran ineffective. 1050 Infusion complete. Patient slept on and off. Nausea resolved. PINEDA 6/10. Patient verbal , appears sedated . D/c via wheel chair to her in [place]. [facility] 04-13-2023 History of Presen t illness [...] She is working with a psychiatrist in [place] . Voiced stress is her biggest trigger for headaches. 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 I mentioned to patient our reboot program . Patient very interested to learn about it. Message send to our inspector open die and Rhina Lim to set up patient for evaluation. 1020 Patient sleeping on and off. Nausea subsiding. Patient declined Zofran. Stated Zofran ineffective. 1050 Infusion complete. Patient slept on and off. Nausea resolved. PINEDA 6/10. Patient verbal , appears sedated . D/c via wheel chair to her in [facility]. documented in this encounter [facility] 04-13-2023 Miscellaneous Notes Patient is currently receiving infusions for headache. She is interested in learning about reboot program. Please schedule for evaluation. Johana Cancino RN documented in this encounter 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 Short and rat exterminator memory, cognition and general fund of knowledge [...] which included preparing to see the patient, doax-oq-hqzs patient care, completing clinical documentation, obtaining and/or reviewing separately obtained history, performing a medically appropriate examination, counseling and educating the patient/family/caregiver, and ordering medications, tests, or procedures. Suzan Driver APRN.FADY Headache Section [facility] documented in this encounter [facility] 04-12-2023 Note HNO ID: [id number] Author: SUZAN DRIVER APRN.DIET COUNSELOR Service: ? 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 Short and group home memory, cognition and general fund of [...] which included preparing to see the patient, wqvp-wa-ylqu patient care, completing clinical documentation, obtaining and/or reviewing separately obtained history, performing a medically appropriate examination, counseling and educating the patient/family/caregiver, and ordering medications, tests, or procedures. Suzan Driver APRN.DIET COUNSELOR Headache Section [facility] 04-12-2023 Note HNO ID: [id number] Author: SUZAN JEFF RN Service: ? Author [...] vs oral periactin for sedation. Rhina Driver LEISURE TRAVEL AGENT updated and agreeable. PIV started on 3rd [...] dizziness. 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 [facility] 04-12-2023 History of Presen t illness Narrative 1105 Patient in for first day of IV infusions. Patient rated headache 8/10. Patient stated severe nausea and mild dizziness. Patient educated on medications to be administered. Patient verbalized understanding and agreed to proceed with infusions. Patient requested the PRN IV Benadryl vs oral periactin for sedation. Rhina Driver LEISURE TRAVEL AGENT updated and agreeable. PIV started on 3rd [...] dizziness. 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 documented in this encounter [facility] 04-12-2023 Instructions Suzan Driver APRN.DIET COUNSELOR - 04/12/2023 11:52 AM EST General Headache [...] much light. These can be obtained at [employer] or [employer]: see list below. 2. Limit use of acute treatments (nsuu-hvv-qjqoabt medications, triptans, etc.) to no more than [...] and quiet environment. Relax and reduce stress. Yifwxzn8Rprdt is a free catrina that can instruct you on some simple relaxtion and breathing techniques. Http://[employer] is a free website that provides teaching [...] ensuing treatment plans will be released via [employer] and discussed during your follow-up appointment. Follow-up appointments are primarily provided by the Nurse Practitioners and Physician s Assistants in order to provide timely, accessible care. [employer]: Please ask the schedulers to give you an activation code. The main way of communication is by [employer] rather than phone lines, so if you have not signed up, please do so. [employer] is also the way that you can review your labs and testing. We are not able to contact everyone to tell them results are normal. If you do not hear back from us regarding testing you have had, it should be considered normal or within normal range. If you have any questions about the results, you are free to message us. [employer] is meant for simple questions regarding medications, possible side effects, or other simple straight forward questions in limited sentences, rather than multiple paragraphs of discussion. [employer] is not meant for, or efficient for these complex questions, extensive questions, extensive medication adjustments, complex new symptoms or concerns. These issues beyond simple questions require a follow up visit with myself, one of our physician assistants, nurse practitioners, or a Virtual Visit via computer or smart phone, as detailed further down. Please contact [employer] Support if you are having issues with [employer] or logging in to your virtual visit appointment. You can reach them at [phone] Refills: Please pay attention to when your [...] pepperoni, Pickled reynoso Pods of broad carmona (Cambodian beans, Burundian pea pods, Guatemalan (jc) beans, frazier and navy beans Ripe [...] headaches. documented in this encounter [facility] 04-03-2023 Miscellaneous Notes Ambulatory Pharmacy Prior Authorization Note Provider Intervention Required?: No- Pharmacy completed on your behalf. Rx Plan: Medicaid MCO ([facility]) Drug: Aimovig 70MG/ML auto-injectors Cover My Meds Chong: [id number] Determination: Approved Prior Authorization/Case #: n/a Prior [...] refills. Prescriptions will now be processed through [facility] Home Delivery Pharmacy for determination of next steps. For questions relating to this submission, please contact [facility] Delivery [facility] at [phone] [facility] received prescription(s) for Aimovig 70MG/ML auto-injectors . Benefits investigation was conducted, indicating that a prior authorization is required. PA was initiated and pending review through DOZ. All pertinent clinical information was submitted to insurance. CM Chong: [id number] Ordering Provider: Logan Barth APRN.CNP Murtaugh, Alisha, RN [facility] Delivery [facility] P: , F: documented in this encounter [facility] 03-23-2023 Note HNO ID: [id number] Author: LOGAN BARTH APRN.FADY Service: ? Author [...] visit. Either the patient or their legal customer loyalty representative has been informed of the risks [...] XL, Qudexy) Anti-Depressant and Antipsychotic Amitriptyline (Elavil) Shadybrook (Eskalith, Lithobid) Nortriptyline (Pamelor, Aventyl) Anti-Migraine Dihydroergotamine [...] ZOLMitriptan (ZOMIG) 5 mg nasal sprayUse 1 [place] in the nose as needed at onset [...] Rfl: lamoTRIgine (LAMICTAL) (more content not included)... [facility] 12-13-2022 Miscellaneous Notes Images from the original note were not included. Called patient to schedule for 3 days of Non DHE IV infusions. She started she was currently driving and would call back to schedule Logan Barth APRN.DIET COUNSELOR P Headache Infusion Scheduling Pool; P C21 Botox Pool Pls schedule for infusions, and also her next botox treatment - thank you. KG documented in this encounter [facility] 12-13-2022 Miscellaneous Notes PA submitted through CoverMyMeds for Orphenadrine Citrate ER 100mg. Chong Code: [id number] documented in this encounter [facility] 12-09-2022 Miscellaneous Notes Patient would [...] Reilly documented in this encounter [facility] 11-11-2022 History of Presen t illness Narrative Coni Nicholson in for day 1 of PIENDA infusions. Pt experienced itching with keppra. Benadryl [...] d/c since symptoms have resolved. Suzan Driver APRN.DIET COUNSELOR 0824: Patient in for first day of IV infusions. Patient rated headache 8/10. Patient stated severe nausea and severe dizziness. Patient educated on medications to be administered. Patient verbalized understanding and agreed to proceed with infusions. 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 She would like PRN benadryl for sedation. [...] nausea and denied dizziness. 1055: Suzan Driver LEISURE TRAVEL AGENT in txt room to see patient. 1105: Pt discharged from treatment room via wheelchair due to drowsiness to her significant other. 1110: When cleaning chair after pt left, white pill found in chair. Tablet identified as baclofen. During initial assessment, after reviewing home medication list, pt denied any other medications missing from the list. Baclofen not listed on home medication list. Suzan Driver LEISURE TRAVEL AGENT notified. documented in this encounter [facility] 11-10-2022 History of Presen t illness Narrative Images from the original note were not included. Headache Center - Virtual Visit Infusion Triage This visit was conducted as a virtual visit, with patient's permission, via ZOOM. It required patient-provider interaction for the medical decision making as documented below. Patient stated name and Patient location [facility] I have communicated my name and active licensure. The patient's identity and physical location were verified at the time of this visit. Either the patient or their legal customer loyalty representative has been informed of the risks [...] Lymph 1.00 - 4.00 k/uL 0.84 (L) [place]% % 0.7 Abs [place] <0.87 k/uL 0.06 Eosin% % 0.1 Abs [...] 2.7 TSH 0.270 - 4.200 mIU/L 0.537 Shadybrook 0.6 - 1.2 mmol/L 0.1 (L) Analgesic Ketorolac (Toradol) Anti-Convulsant Lamotrigine (Lamictal) Topiramate (Topamax, Trokendi XL, Qudexy) Anti-Depressant and Antipsychotic Amitriptyline (Elavil) Shadybrook (Eskalith, Lithobid) Nortriptyline (Pamelor, Aventyl) Anti-Migraine Dihydroergotamine [...] ZOLMitriptan (ZOMIG) 5 mg nasal spray^Use 1 [place] in the nose as needed at onset [...] these with the patient: yes Ольга Aguilar APRN.DIET COUNSELOR HEADACHE SCORES: Headache Questions 06/24/2022 08/31/2022 [...] in rate, volume and articulation. Short and rat exterminator memory, cognition and general fund of knowledge [...] Service: Virtual Visit 25 minutes Ольга Aguilar APRN.DIET COUNSELOR Headache Section [facility] November 10, 2022 documented in this encounter [facility] 11-10-2022 Miscellaneous Notes PATIENT SCHEDULED [...] get infusions scheduled. Number to return call [phone] Okay to leave a message ? Yes Last office visit 10/12/22 with [facility] Next office visit Not scheduled. Thank you calling [facility]. You will receive a return call within 48 hours ( or 2 business days if close to the weekend). If you feel that this is an urgent issue and needs immediate attention, it is recommended that you contact your primary care provider office or proceed to your nearest Urgent Care Center of Emergency Room ED for evaluation/treatment. documented in this encounter [facility] 10-06-2022 Miscellaneous Notes Ambulatory Pharmacy Prior Authorization Note Provider Intervention Required?: No- Pharmacy completed on your behalf. Rx Plan: Medicaid MCO ([facility]) Drug: Zomig 5MG nasal spray Cover My Meds Chong: [id number] Determination: Approved Prior Authorization/Case #: n/a Prior [...] refills. Prescriptions will now be processed through [facility] Home Delivery Pharm[facility] for determination of next steps. For questions relating to this submission, please contact [facility] at [phone] [facility] Delivery Pharm[facility] received prescription(s) for Zomig 5MG nasal spray . Benefits investigation was conducted, indicating that a prior authorization is required. PA was initiated and pending review through DOZ. All pertinent clinical information was submitted to insurance. CMM Chong: [id number] Ordering Provider: Logan Barth APRN.DIET COUNSELOR Angely Cotton, PRATIBHA [facility] Delivery Pharm[facility] P: , F: documented in this encounter [facility] 09-28-2022 Miscellaneous Notes Patient last seen on 09/12/22. documented in this encounter [facility] 08-31-2022 History of Presen t illness Narrative Headache Center - Follow up Virtual Visit During this COVID-19 pandemic, patient's headache clinic evaluation was scheduled as a virtual visit using the following platform Zoom - patient currently located in [place] Cnoi Nicholson was identified by name and and [...] visit. Either the patient or their legal customer loyalty representative has been informed of the risks [...] She has been seeing one of the LEISURE TRAVEL AGENT's. It sounds like the plan is Emgality and Zomig nasal spray but it has been 2 months and she still hasn't heard about whether it has been approved. Has infusions which helped some. [place] keppra worked the best. Has an appt with LEISURE TRAVEL AGENT in a week. I will give keppra [...] XL, Qudexy) Anti-Depressant and Antipsychotic Amitriptyline (Elavil) [place]ady[place] (Eskalith, Lithobid) Nortriptyline (Pamelor, Aventyl) Anti-Migraine Naratriptan [...] (ZOMIG) 5 mg nasal spray Use 1 [place] in the nose as needed. SPRAY IN [...] these with the patient: yes Logan Barth APRN.DIET COUNSELOR HEADACHE SCORES: Headache Questions 06/24/2022 08/31/2022 [...] spontaneous and fluent without dysarthria. Short and rat exterminator memory, cognition and general fund of knowledge [...] XL, Qudexy) Anti-Depressant and Antipsychotic Amitriptyline (Elavil) Shadybrook (Eskalith, Lithobid) Nortriptyline (Pamelor, Aventyl) Blood Pressure [...] 30 minutes Logan Barth APRN.CNP Headache Section [facility] August 31, 2022 documented in this encounter [facility] 08-11-2022 Miscellaneous Notes Patient just completed 3 days of Infusions 07/27, 07/28, and 07/29. She is also scheduled for a follow up on 08/16. Would you like me to try to move her appt sooner? Patient last seen on 08/08/22. documented in this encounter [facility] 08-10-2022 Miscellaneous Notes Message left on identified voice mail box requesting name of medication patient is attempting to bulk picker. Vida Vazquez RN August 10, 2022 10:01 AM documented in this encounter [facility] 08-08-2022 History of Presen t illness Narrative VV I have communicated my name and active licensure. The patient's identity and physical location were verified at the time of this visit. Either the patient or their legal customer loyalty representative has been informed of the risks and benefits of -- and alternatives to -- treatment through a remote evaluation and consents to proceed with the evaluation remotely. Pt that I saw once 9 or so months ago. At the time, did not need preventative med. Since, the PINEDA's have worsened. She has been seeing one of the LEISURE TRAVEL AGENT's. It sounds like the plan is Emgality and Zomig nasal spray but it has been 2 months and she still hasn't heard about whether it has been approved. Has infusions which helped some. [place] keppra worked the best. Has an appt with LEISURE TRAVEL AGENT in a week. I will give keppra today until she can find out where emgality and zomig stand. Answered all questions. Jesse Borrego MD Time spent: 18 mins (10 mins direct pt contact) documented in this encounter [facility] 07-28-2022 History of Presen t illness Narrative Patient in for day 2 of infusion therapy. Patient rated headache pain 10 out of 10. Patient has severe nausea and moderate dizziness. Education was provided for the patient on medications and treatment plan for the day. The patient verbalized understanding and agreed to the infusion. 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 IV removed and patient discharged from infusion room documented in this encounter [facility] 06-27-2022 Miscellaneous Notes Images from the original note were not included. Spoke to patient about scheduling infusions. Patient would like to callback once she can figure out transportation. Logan Barth APRN.CNP P Headache Infusion Scheduling Pool Please sched for infusions - therapy plan placed. Logan Barth APRN.CNP documented in this encounter [facility] 06-14-2022 Miscellaneous Notes Spoke with [...] PM documented in this encounter [facility] 06-14-2022 Miscellaneous Notes NI PHONE [...] for sooner appts. Number to return call [phone] Corina Thorpe I called and spoke to Sandie and scheduled her follow up for the first available virtual visit in July and placed it on the wait list for a sooner appointment. documented in this encounter [facility] 12-21-2021 Miscellaneous Notes Spoke with patient - verified name and . Reviewed medications she is currently taking. She states Amerge was not a medication she picked up. Spoke with Giovanna Pharmacist who states insurance will only pay for 9 pills not 10. Verbal order to fill for 9 pills. Patient advised to bulk picker Amerge and instruction on when to [...] AM documented in this encounter [facility] 12-03-2021 History of Presen t illness Narrative Dictation completed. Of note, she feels her neck hurts all of the time but I do not see that on the exam today. Jesse Borrego MD documented in this encounter [facility] 11-10-2021 History of Presen t illness Narrative [facility] VIRTUAL VISIT Patient Name: Sandie [...] memory issues/vision issues. OSH admission documentation ([facility], [place]) ADMISSION DATE: 10/19/21 DISCHARGE DATE: 10/20/21 Patient was hooked up to group home video EEG monitoring or LTME. Overnight, [...] 2021 documented in this encounter [facility] 11-09-2021 Miscellaneous Notes Lvv 10/29/2021 Dr Dolan PLAN: -Patient agreed to have 3 days home Video EEG (stratus) to confirm the diagnosis of PNES (patient needs to be at home with her 4 kids all have special needs). -Discussed treatment of PNES with specialized CBT at [facility] psychology program. -No driving Patient agreed Consult headache center for headache. Continue to follow up local psychiatrist/conseling for mood disorder, anxiety and PTSD. documented in this encounter [facility] 11-08-2021 Miscellaneous Notes Order placed. Nelly Saldaña PA-C Good Afternoon, Dr. Dolan placed an Stratus Ambulatory EEG for the patient. In order to send over the order to stratus the patient will need an Routine EEG order on file. Can someone please assist with placing the order? Thank you, Chucky documented in this encounter [facility] 10-29-2021 History of Presen t illness Narrative [facility] Patient Name: Sandie Nicholson Date [...] event, she complains memory issues/vision issues. [facility] admission documentation ([facility], [place]) ADMISSION DATE: 10/19/21 DISCHARGE DATE: 10/20/21 Patient was hooked up to rat exterminator video EEG monitoring or LTME. Overnight, [...] treatment of PNES with specialized CBT at [facility] psychology program. -No driving Patient [...] Dolan MD PhD Staff, Epilepsy Center [place], [place] Primary Care Physician: Abdifatah Lynn (Historical) Jose Antonio (Inactive) No address on file Referring Physician: SELF Ms. Sandie Nicholson [address] [place] [address] documented in this encounter [facility] 10-26-2021 History of Presen t illness Narrative [facility] Epilepsy Center Review of Records Patient: Sandie Nicholson Address: [address] [place] [address] Impression: Review of records for Sandie Nicholson, [...] cholecystectomy, caesarean , tubal ligation PRIOR EVALUATIONS: [address] [address] Video EEG ([facility], 10/19/2021-10/20/2021): Normal continuous video-EEG. The events that were captured did not correlate with epileptic seizures. No epileptiform discharges were identified. MRI brain wo/w contrast ([facility], 10/19/2021): Unremarkable MRI of the brain CATRINA Recommendations: - Admit to EMU for VEEG monitoring, diagnostic evaluation Location: [facility] [place] - Visit with epileptologist prior to admission - Additional testing to be considered by epilepsy clinicians Signed: Geri Madera APRN.DIET COUNSELOR October 26, [address] Storey for review and recommendations. MD Recommendations (as discussed with Dr. Storey): - Please proceed with the above plan. Please route this encounter to the EMU Scheduling Pool ( P EMU ) or PMU Scheduling Pool ( P PMU ) through LOS & Follow up PHASE 1.0 AND 1.5 ORDER SYNOPSIS Patient: Sandie Nicholson ([id number]) Best contact number: [phone] Insurance: No coverage found. Scheduling Team: Please call for adult patients: Lelia Torres ([phone]) Chucky Cantor ([phone]) Fabiola Sharpe([phone]) Nikkie Mahajan([phone]) Please call for pediatric patients: Chucky Cantor ([phone]) Fabiola Sharpe ([phone]) Lelia Torres ([phone]) Nikkie Mahajan([phone]) Appointments and Tests PRE-PROCEDURE & PRE-OPERATIVE COVID ([facility] COVID PRE-PROCEDURE TESTING PANEL) EPIL EEG LEAD PLACEMENT EPIL VEEG ADMIT TO EMU/PMU Consultations None Please route this encounter to the EMU Scheduling pool ( P EMU ) or PMU Scheduling pool ( P PMU ) through LOS & Follow up Scheduling coordinators: For all VNS patients being scheduled for JESSY, please schedule VNS off/on office visits. documented in this encounter [facility] 10-20-2021 Hospital Discharg e instructions [...] sent through Care Everywhere.Non-Epileptic Seizure: General Info (Cambodian)documented in this encounter Unbound Phone: 10-20-2021 History of Presen t illness [...] hysterectomy who presented as a transfer [facility] for seizure like episodes. Per [...] had another similar episode en route to [facility] ED. On arrival to [facility] ED, GCS 12. Per documentation, patient had at least 13 seizure like episodes, lasting 10-60 seconds, described as grand mal. She was given 10mg Valium IV, 1g Keppra IV, 720mg Phenobarbital IV. CT Head without contrast unremarkable. Labs unremarkable including normal TSH, lactic, negative UA. Transferred to [facility] Neuro ICU for further [...] brain mass recently (last 6 months) at [facility] and is supposed to have a brain biopsy in November 2021. Patient recently saw Dr. Vicky De Dios ([facility]) on 08/06/21 for migraines [...] On arrival to the Neuro ICU, Adrienne (MANUFACTURING SALES REPRESENTATIVE) witnessed two brief (~10 seconds) episodes [...] with patient and mom. Records requested from [facility] where patient states she was seen [...] hysterectomy who presented as a transfer from [facility] for seizure like episodes. NEUROLOGIC: - [...] UMANG Garcia CNP Neuro Critical Care Pager [phone] 10/20/2021 6:49 AM ALTM is running. Pt [...] at 100%. documented in this encounter [employer] Phone: 10-01-2021 Note DISCHARGE SUMMARY DISCHARGE [...] free and no longer on narcotics. [facility] 10-01-2021 Note OPERATIVE NOTE OPERATION DATE: 10/01/2021 PROCEDURE: Total abdominal hysterectomy with partial bilateral salpingectomy with cystoscopy. PREOPERATIVE DIAGNOSIS: Menorrhagia, dysmenorrhea, dyspareunia, pelvic pain. POSTOPERATIVE DIAGNOSIS: Menorrhagia, dysmenorrhea, dyspareunia, pelvic pain. ANESTHESIA: General. SURGEON: Zay Blas D.O. PERIODICALS CLERK: VERNA Yap URINE OUTPUT: Yellow and [...] Recovery Room in stable condition. ?? [facility] 08-14-2021 Note PROCEDURE: US PELVIS TRANSVAG, [...] NICOLE MEDELLIN Date: 2021-08-14 10:19 [facility] 12-24-2020 Hospital Discharg Vielka Merecr DO - 12/24/2020 Continue all home medications as prescribed. Follow up with your family doctor and neurologist. Return to the emergency department for new, worsening or worrisome symptoms. documented in this encounter [employer] Phone: Evaluation note Diagnosis Migraine without status migrainosus, not intractable, unspecified migraine type- Primary documented in this encounter [employer] Phone: evaluation note* Diagnosis Seizure-like activity (HCC)- Primary Other convulsions Seizure disorder (HCC) Unspecified epilepsy without mention of intractable epilepsy Psychogenic nonepileptic seizure documented in this encounter JEREMIAH BURROWS [employer] Phone: evaluation note* Diagnosis Seizure-like activity (HCC)- Primary Other convulsions documented in this encounter [facility] note* Diagnosis Psychogenic nonepileptic seizure- Primary Spells of trembling Abnormal involuntary movements Chronic intractable headache, unspecified headache type documented in this encounter [facility] note* Diagnosis Seizure-like activity (HCC)- [...] with status migrainosus [facility] Diagnosis Chronic migraine without aura, [...] migrainosus [facility] [place] [facility] Diagnosis Intractable chronic migraine without aura and without status migrainosus- Primary Chronic migraine without aura, with intractable migraine, so stated, without mention of status migrainosus documented in this encounter [facility] [place] [facility]* Diagnosis Acute right flank pain- Primary [...] of 50.0 to 59.9 in adult (CMS/HCC) Fatigue, unspecified type Mixed bipolar I disorder (CMS/HCC) Bipolar I disorder, most recent episode (or current) mixed, unspecified Chronic migraine without aura without status migrainosus, not intractable (CMS/HCC) Pain, dental [facility] Diagnosis Chronic migraine without aura, with intractable migraine, so stated, with status migrainosus- Primary Intractable chronic migraine without aura and with status migrainosus Chronic migraine without aura, with intractable migraine, so stated, with status migrainosus documented in this encounter [facility] [place] [facility]* Diagnosis Chronic migraine without aura, with intractable migraine, so stated, with status migrainosus- Primary Intractable chronic migraine without aura and with status migrainosus Chronic migraine without aura, with intractable migraine, so stated, with status migrainosus documented [facility] this [facility] Diagnosis Acute right flank pain- Primary [...] (BMI) of 50.0 to 59.9 in adult ([facility]) Fatigue, unspecified type Mixed bipolar I disorder ([facility]/HCC) Bipolar I disorder, most recent episode (or current) mixed, unspecified Chronic migraine without aura without status migrainosus, not intractable ([facility]/HCC) Pain, dental Pain, dental documented [facility]* Diagnosis Chronic migraine without aura, with intractable migraine, so stated, with status migrainosus- Primary documented [facility] this [facility] Diagnosis Chronic migraine without aura, with intractable migraine, so stated, with status migrainosus- Primary Intractable chronic migraine without aura and with status migrainosus Chronic migraine without aura, with intractable migraine, so stated, with status migrainosus documented [facility] this [facility] Diagnosis Acute right flank pain- Primary Mild persistent asthma without complication (CMS/HCC) Morbid obesity ([facility]) Morbid obesity Body mass index [BMI] 45.0-49.9, adult (Z68.42) Acute bronchitis due to other specified organisms- Primary Mild persistent asthma with (acute) exacerbation ([facility]) Acute bronchitis due to other specified organisms- Primary Mixed bipolar I disorder ([facility]/HCC) Bipolar I disorder, most recent episode (or current) mixed, unspecified Mild persistent asthma without complication ([facility]/HCC)- Primary Class 3 severe obesity due to excess calories without serious comorbidity with body mass index (BMI) of 50.0 to 59.9 in adult ([facility]) Fatigue, unspecified type Mixed bipolar I disorder ([facility]) Bipolar I disorder, most recent episode (or current) mixed, unspecified Chronic migraine without aura without status migrainosus, not intractable (CMS/[facility]) Pain, dental Mild persistent asthma with (acute) exacerbation ([facility]/HCC)- Primary Generalized edema Edema SOB (shortness of breath) on exertion Shortness of breath documented in this encounter [facility]* Diagnosis Acute right flank pain- Primary Mild persistent asthma without complication (CMS/HCC) Morbid obesity ([facility]) Morbid obesity Body mass index [BMI] 45.0-49.9, adult (Z68.42) Acute bronchitis due to other specified organisms- Primary Mild persistent asthma with (acute) exacerbation ([facility]) Acute bronchitis due to other specified organisms- Primary Mixed bipolar I disorder ([facility]) Bipolar I disorder, most recent episode (or current) mixed, unspecified Mild persistent asthma without complication ([facility])- Primary Class 3 severe obesity due to excess calories without serious comorbidity with body mass index (BMI) of 50.0 to 59.9 in adult ([facility]) Fatigue, unspecified type Mixed bipolar I disorder ([facility]) Bipolar I disorder, most recent episode (or current) mixed, unspecified Chronic migraine without aura without status migrainosus, not intractable ([facility]) Pain, dental Mild persistent asthma with (acute) exacerbation ([facility])- Primary Generalized edema Edema SOB (shortness of breath) on exertion Shortness of breath COVID-19 [facility]* Diagnosis Severe persistent asthma without complication ([facility]) [facility]* Diagnosis Acute bronchitis due to other specified organisms- Primary Mild persistent asthma with (acute) exacerbation ([facility]) [facility]* Diagnosis Acute bronchitis due to other specified organisms- Primary Mixed bipolar I disorder ([facility]) Bipolar I disorder, most recent episode (or current) mixed, unspecified [facility]* Diagnosis Acute right flank pain- Primary Mild persistent asthma without complication ([facility]) Morbid obesity ([facility]) Morbid obesity Body mass index [BMI] 45.0-49.9, adult (Z68.42) Acute bronchitis due to other specified organisms- Primary Mild persistent asthma with (acute) exacerbation ([facility]) Acute bronchitis due to other specified organisms- Primary Mixed bipolar I disorder ([facility]) Bipolar I disorder, most recent episode (or current) mixed, unspecified Mild persistent asthma without complication ([facility])- Primary Class 3 severe obesity due to excess calories without serious comorbidity with body mass index (BMI) of 50.0 to 59.9 in adult ([facility]) Fatigue, unspecified type Mixed bipolar I disorder ([facility]) Bipolar I disorder, most recent episode (or current) mixed, unspecified Chronic migraine without aura without status migrainosus, not intractable (CMS/HCC) Pain, dental Mild persistent asthma with (acute) exacerbation (CMS/HCC)- Primary Generalized edema Edema SOB (shortness of breath) on exertion Shortness of breath Generalized abdominal pain- Primary Abdominal pain, generalized Intractable nausea and vomiting Mild persistent asthma with (acute) exacerbation (CMS/HCC) documented in this encounter [facility]* Diagnosis Acute right flank pain- Primary Mild persistent asthma without complication (CMS/HCC) Morbid obesity (CMS/HCC) Morbid obesity Body mass index [BMI] 45.0-49.9, adult (Z68.42) Acute bronchitis due to other specified organisms- Primary Mild persistent asthma with (acute) exacerbation (CMS/HCC) Acute bronchitis due to other specified organisms- Primary Mixed bipolar I disorder (CMS/[facility]) Bipolar I disorder, most recent episode (or current) mixed, unspecified Mild persistent asthma without complication (CMS/HCC)- Primary Class 3 severe obesity due to excess calories without serious comorbidity with body mass index (BMI) of 50.0 to 59.9 in adult ([facility]) Fatigue, unspecified type Mixed bipolar I disorder (CMS/[facility]) Bipolar I disorder, most recent episode (or current) mixed, unspecified Chronic migraine without aura without status migrainosus, not intractable (CMS/HCC) Pain, dental Mild persistent asthma with (acute) exacerbation (CMS/HCC)- Primary Generalized edema Edema SOB (shortness of breath) on exertion Shortness of breath Generalized abdominal pain- Primary Abdominal pain, generalized Intractable nausea and vomiting Mild persistent asthma with (acute) exacerbation ([facility]) Pelvic pain in female Unspecified symptom associated with female genital organs Complex ovarian cyst documented in this encounter [facility]* Diagnosis Acute right flank pain- [...] (BMI) of 50.0 to 59.9 in adult ([facility]) Fatigue, unspecified type Mixed bipolar I disorder ([facility]) Bipolar I disorder, most recent episode (or current) mixed, unspecified Chronic migraine without aura without status migrainosus, not intractable ([facility]) Pain, dental Mild persistent asthma with (acute) exacerbation ([facility]/HCC)- Primary Generalized edema Edema SOB (shortness of breath) on exertion Shortness of breath Generalized abdominal pain- Primary Abdominal pain, generalized Intractable nausea and vomiting Mild persistent asthma with (acute) exacerbation ([facility]) Cyst of right ovary Other and unspecified ovarian cyst Pelvic pain in female Unspecified symptom associated with female genital organs Pelvic peritoneal adhesions, female Pelvic peritoneal adhesions, female (postoperative) (postinfection) [facility]* Diagnosis Bilateral ovarian cysts- Primary Other and unspecified ovarian cyst Preop testing Unspecified pre-operative examination [facility] Diagnosis Bilateral ovarian cysts- Primary Other and unspecified ovarian cyst Moderate asthma with acute exacerbation, unspecified whether persistent Encounter for preoperative pulmonary examination documented [facility]* Diagnosis Acute cough [R05.1]- Primary documented in this encounter [facility]* Diagnosis Intractable chronic migraine without aura and without status migrainosus- Primary Chronic migraine without aura, with intractable migraine, so stated, without mention of status migrainosus documented [facility] Diagnosis Asthma, unspecified asthma severity, unspecified whether complicated, unspecified whether persistent- Primary Bilateral ovarian cysts Other and unspecified ovarian cyst Moderate asthma with acute exacerbation, unspecified whether persistent Encounter for preoperative pulmonary examination Pulmonary nodule Other diseases of lung, not elsewhere classified Gastroesophageal reflux disease, unspecified whether esophagitis present [facility]* Diagnosis Cyst of right ovary- Primary Other and unspecified ovarian cyst documented in [facility]* Diagnosis Preop testing- Primary Unspecified pre-operative examination Bilateral ovarian cysts Other and unspecified ovarian cyst documented [facility] on filedocumented in this encounter [facility]Not on filedocumented in this encounter [facility] on filedocumented in this encounter [facility] on filedocumented in this encounter [facility]Not on filedocumented in this encounter [facility]ructionsNot on filedocumented in this encounter [facility] for [facility] (narrative)* Outpatient Procedure (Routine) - Pending Review Specialty Diagnoses / Procedures Referred By Contac t Referred To Contact [facility] Diagnoses Seizure-like activity (HCC) Procedures EPIL EEG LEAD PLACEMENT EEG EXTENDED MONITORING 61-119 MINUTES ELECTROENCEPHALOGRAM REC COMA/SLEEP ONLY Geri Madera APRN.CNP [address] [place] [address] [place] [address] Referral ID Status Reason Start Date Expiration Date Visits Requested Visits Authorized [id number] Pending Review Auto-Generat ed Referral 10/26/2021 10/26/2022 1 1 [facility] for referral (narrative)* Outpatient Procedure (Routine) - Pending Review Specialty Diagnoses / Procedures Referred By Contac t Referred To Contact [facility] Diagnoses Psychogenic nonepileptic seizure Spells of trembling Procedures EPIL AMBULATORY EEG EEG COMPLETE STD PHYS/QHP&GT;84 HR W/O VID Tyrone Dolan MD, PhD [address] [facility] [address] [id number] [place] [address] Referral ID Status Reason Start Date Expiration Date Visits Requested Visits Authorized [id number] Pending Review Auto-Generat ed Referral 10/29/2021 10/29/2022 1 1 * Outpatient Procedure (Routine) - Pending Review Specialty Diagnoses / Procedures Referred By Contac t Referred To Contact [facility] Diagnoses Psychogenic nonepileptic seizure Spells of trembling Procedures EPIL AMBULATORY EEG EEG COMPLETE STD PHYS/QHP&GT;84 HR W/O VID Tyrone Dolan MD, PhD [address] [place] [address] [place] [address] Referral ID Status Reason Start Date Expiration Date Visits Requested Visits Authorized [id number] Pending Review Auto-Generat ed Referral 10/29/2021 10/29/2022 1 1 * Consult, Test, Treat (Routine) - Authorized Specialty Diagnoses / Procedures Referred By Contac t Referred To Contact Diagnoses Chronic intractable headache, unspecified headache type Procedures CONSULT TO HEADACHE CLINIC OFFICE/OUTPATIENT [facility] MDM 60-74 MINUTES Tyrone Dolan MD, PhD [address] [place] [address] Referral ID Status Reason Start Date Expiration Date Visits Requested Visits Authorized [id number] Authorized PCP Requested Referral 10/29/2021 10/29/2022 [address] Outpatient Procedure (Routine) - Pending Review Specialty Diagnoses / Procedures Referred By Contac t Referred To Contact [facility] Diagnoses Seizure-like activity (HCC) Procedures EPIL EEG ROUTINE ELECTROENCEPHALOGRAM REC COMA/SLEEP ONLY Nelly Saldaña PA-C [address] [place] [address] [place] [address] Referral ID Status Reason Start Date Expiration Date Visits Requested Visits Authorized [id number] Pending Review Auto-Generat ed Referral 11/08/2021 11/08/2022 [address] [facility] Advance Directives Documents on File Type Date Recorded Patient Cutter Barrel Drum Expl anation ACP-Advance Directive ACP-Power of Deep Tissue Massage Therapist Latest Code Status on File Code Status [...] 30 mg, INTRAVENOUS, ONCE, 1 dose, On Emg 07/28/22 at 0800, Ketorolac (Toradol) is indicated [...] over 30 Minutes, ONCE, 1 dose, On Mge 07/28/22 at 0800, Administer IV while in [...] t Referred To Contact Jesse Borrego MD [address] [id number] Referral ID Status Reason Start Date Expiration Date Visits Re quested Visits Authorized [id number] Closed 1 1 Specialty Diagnoses / Procedures Referred By Contac t Referred To Contact Diagnoses Intractable chronic migraine without aura and with status migrainosus Intractable chronic migraine without aura and without status migrainosus Procedures PROVIDER ORDERED FOLLOW UP OFFICE/OUTPATIENT [facility] 60 MINUTES Suzan Driver APRN.CNP [address] [id number] Referral ID Status Reason Start Date Expiration Date Visits Requested Visits Authorized [id number] Authorized PCP Requested Referral 07/13/2023 04/13/2024 1 1 Specialty Diagnoses / Procedures Referred By Contac t Referred To Contact Diagnoses Intractable chronic migraine without aura and without status migrainosus Procedures PROVIDER ORDERED FOLLOW UP OFFICE/OUTPATIENT [facility] 60 MINUTES Logan Barth APRN.CNP [address] [place] [address] Referral ID Status Reason Start Date Expiration Date Visits Requested Visits Authorized [id number] Authorized PCP Requested Referral 10/10/2023 07/09/2024 1 1 Specialty Diagnoses / Procedures Referred By Contac t Referred To Contact Logan Barth APRN.CNP [address] [place] [phone] Referral ID Status Reason Start Date Expiration Date V isits Requested Visits Authorized [id number] Authorized 07/10/2023 09/22/2023 1 1 Specialty Diagnoses / Procedures Referred By Contselena t Referred To Contact Psychology Diagnoses Psychogenic nonepileptic seizure Procedures CONSULT TO PSYCHOLOGY OFFICE/OUTPATIENT [facility] 60 MINUTES Curtis Lepe PA-C [address] [place] [address] Referral ID Status Reason Start Date Expiration Date Visits Requested Visits Authorized [id number] Pending Review PCP Requested Referral 08/18/2023 08/17/2024 1 1 Additional Source Comments Source Comments (unrecognize d section and content) In the event this informatio n is protected by the Federal Confidentiality of Alcohol and Drug Abuse Patient Records regulations: The Federal rules restrict any use of the information to criminally investigate or prosecute any alcohol or drug abuse patient.[facility] the event this information is protected by the Federal Confidentiality of Alcohol and Drug Abuse Patient Records regulations: The Federal rules restrict any use of the information to criminally investigate or prosecute any alcohol or drug abuse patient.[facility] CenterIn the event this information is protected by the Federal Confidentiality of Alcohol and Drug Abuse Patient Records regulations: The Federal rules restrict any use of the information to criminally investigate or prosecute any alcohol or drug abuse patient.[facility] CenterIn the event this information is protected by the Federal Confidentiality of Alcohol and Drug Abuse Patient Records regulations: The Federal rules restrict any use of the information to criminally investigate or prosecute any alcohol or drug abuse patient.[facility] CenterIn the event this information is protected by the Federal Confidentiality of Alcohol and Drug Abuse Patient Records regulations: The Federal rules restrict any use of the information to criminally investigate or prosecute any alcohol or drug abuse patient.[facility] CenterIn the event this information is protected by the Federal Confidentiality of Alcohol and Drug Abuse Patient Records regulations: The Federal rules restrict any use of the information to criminally investigate or prosecute any alcohol or drug abuse patient.[facility] CenterIn the event this information is protected by the Federal Confidentiality of Alcohol and Drug Abuse Patient Records regulations: The Federal rules restrict any use of the information to criminally investigate or prosecute any alcohol or drug abuse patient.[facility] CenterIn the event this information is protected by the Federal Confidentiality of Alcohol and Drug Abuse Patient Records regulations: The Federal rules restrict any use of the information to criminally investigate or prosecute any alcohol or drug abuse patient.[facility] CenterIn the event this information is protected by the Federal Confidentiality of Alcohol and Drug Abuse Patient Records regulations: The Federal rules restrict any use of the information to criminally investigate or prosecute any alcohol or drug abuse patient.[facility] CenterIn the event this information is protected by the Federal Confidentiality of Alcohol and Drug Abuse Patient Records regulations: The Federal rules restrict any use of the information to criminally investigate or prosecute any alcohol or drug abuse patient.[facility] CenterIn the event this information is protected by the Federal Confidentiality of Alcohol and Drug Abuse Patient Records regulations: The Federal rules restrict any use of the information to criminally investigate or prosecute any alcohol or drug abuse patient.[facility] CenterIn the event this information is protected by the Federal Confidentiality of Alcohol and Drug Abuse Patient Records regulations: The Federal rules restrict any use of the information to criminally investigate or prosecute any alcohol or drug abuse patient.[facility] CenterIn the event this information is protected by the Federal Confidentiality of Alcohol and Drug Abuse Patient Records regulations: The Federal rules restrict any use of the information to criminally investigate or prosecute any alcohol or drug abuse patient.[facility] CenterIn the event this information is protected by the Federal Confidentiality of Alcohol and Drug Abuse Patient Records regulations: The Federal rules restrict any use of the information to criminally investigate or prosecute any alcohol or drug abuse patient.[facility] CenterIn the event this information is protected by the Federal Confidentiality of Alcohol and Drug Abuse Patient Records regulations: The Federal rules restrict any use of the information to criminally investigate or prosecute any alcohol or drug abuse patient.[facility] CenterIn the event this information is protected by the Federal Confidentiality of Alcohol and Drug Abuse Patient Records regulations: The Federal rules restrict any use of the information to criminally investigate or prosecute any alcohol or drug abuse patient.[facility] CenterIn the event this information is protected by the Federal Confidentiality of Alcohol and Drug Abuse Patient Records regulations: The Federal rules restrict any use of the information to criminally investigate or prosecute any alcohol or drug abuse patient.[facility] CenterIn the event this information is protected by the Federal Confidentiality of Alcohol and Drug Abuse Patient Records regulations: The Federal rules restrict any use of the information to criminally investigate or prosecute any alcohol or drug abuse patient.[facility] CenterIn the event this information is protected by the Federal Confidentiality of Alcohol and Drug Abuse Patient Records regulations: The Federal rules restrict any use of the information to criminally investigate or prosecute any alcohol or drug abuse patient.[facility] CenterIn the event this information is protected by the Federal Confidentiality of Alcohol and Drug Abuse Patient Records regulations: The Federal rules restrict any use of the information to criminally investigate or prosecute any alcohol or drug abuse patient.[facility] CenterIn the event this information is protected by the Federal Confidentiality of Alcohol and Drug Abuse Patient Records regulations: The Federal rules restrict any use of the information to criminally investigate or prosecute any alcohol or drug abuse patient.[facility] CenterIn the event this information is protected by the Federal Confidentiality of Alcohol and Drug Abuse Patient Records regulations: The Federal rules restrict any use of the information to criminally investigate or prosecute any alcohol or drug abuse patient.[facility] CenterIn the event this information is protected by the Federal Confidentiality of Alcohol and Drug Abuse Patient Records regulations: The Federal rules restrict any use of the information to criminally investigate or prosecute any alcohol or drug abuse patient.[facility] CenterIn the event this information is protected by the Federal Confidentiality of Alcohol and Drug Abuse Patient Records regulations: The Federal rules restrict any use of the information to criminally investigate or prosecute any alcohol or drug abuse patient.[facility] CenterIn the event this information is protected by the Federal Confidentiality of Alcohol and Drug Abuse Patient Records regulations: The Federal rules restrict any use of the information to criminally investigate or prosecute any alcohol or drug abuse patient.[facility] CenterIn the event this information is protected by the Federal Confidentiality of Alcohol and Drug Abuse Patient Records regulations: The Federal rules restrict any use of the information to criminally investigate or prosecute any alcohol or drug abuse patient.[facility] CenterIn the event this information is protected by the Federal Confidentiality of Alcohol and Drug Abuse Patient Records regulations: The Federal rules restrict any use of the information to criminally investigate or prosecute any alcohol or drug abuse patient.[facility] CenterIn the event this information is protected by the Federal Confidentiality of Alcohol and Drug Abuse Patient Records regulations: The Federal rules restrict any use of the information to criminally investigate or prosecute any alcohol or drug abuse patient.[facility] CenterIn the event this information is protected by the Federal Confidentiality of Alcohol and Drug Abuse Patient Records regulations: The Federal rules restrict any use of the information to criminally investigate or prosecute any alcohol or drug abuse patient.[facility] CenterIn the event this information is protected by the Federal Confidentiality of Alcohol and Drug Abuse Patient Records regulations: The Federal rules restrict any use of the information to criminally investigate or prosecute any alcohol or drug abuse patient.[facility] CenterIn the event this information is protected by the Federal Confidentiality of Alcohol and Drug Abuse Patient Records regulations: The Federal rules restrict any use of the information to criminally investigate or prosecute any alcohol or drug abuse patient.[facility] CenterIn the event this information is protected by the Federal Confidentiality of Alcohol and Drug Abuse Patient Records regulations: The Federal rules restrict any use of the information to criminally investigate or prosecute any alcohol or drug abuse patient.[facility] CenterIn the event this information is protected by the Federal Confidentiality of Alcohol and Drug Abuse Patient Records regulations: The Federal rules restrict any use of the information to criminally investigate or prosecute any alcohol or drug abuse patient.[facility] CenterIn the event this information is protected by the Federal Confidentiality of Alcohol and Drug Abuse Patient Records regulations: The Federal rules restrict any use of the information to criminally investigate or prosecute any alcohol or drug abuse patient.[facility] CenterIn the event this information is protected by the Federal Confidentiality of Alcohol and Drug Abuse Patient Records regulations: The Federal rules restrict any use of the information to criminally investigate or prosecute any alcohol or drug abuse patient.[facility] CenterIn the event this information is protected by the Federal Confidentiality of Alcohol and Drug Abuse Patient Records regulations: The Federal rules restrict any use of the information to criminally investigate or prosecute any alcohol or drug abuse patient.[facility] CenterIn the event this information is protected by the Federal Confidentiality of Alcohol and Drug Abuse Patient Records regulations: The Federal rules restrict any use of the information to criminally investigate or prosecute any alcohol or drug abuse patient.[facility] CenterIn the event this information is protected by the Federal Confidentiality of Alcohol and Drug Abuse Patient Records regulations: The Federal rules restrict any use of the information to criminally investigate or prosecute any alcohol or drug abuse patient.[facility] CenterIn the event this information is protected by the Federal Confidentiality of Alcohol and Drug Abuse Patient Records regulations: The Federal rules restrict any use of the information to criminally investigate or prosecute any alcohol or drug abuse patient.[facility] CenterIn the event this information is protected by the Federal Confidentiality of Alcohol and Drug Abuse Patient Records regulations: The Federal rules restrict any use of the information to criminally investigate or prosecute any alcohol or drug abuse patient.[facility] CenterIn the event this information is protected by the Federal Confidentiality of Alcohol and Drug Abuse Patient Records regulations: The Federal rules restrict any use of the information to criminally investigate or prosecute any alcohol or drug abuse patient.[facility] CenterIn the event this information is protected by the Federal Confidentiality of Alcohol and Drug Abuse Patient Records regulations: The Federal rules restrict any use of the information to criminally investigate or prosecute any alcohol or drug abuse patient.[facility] CenterIn the event this information is protected by the Federal Confidentiality of Alcohol and Drug Abuse Patient Records regulations: The Federal rules restrict any use of the information to criminally investigate or prosecute any alcohol or drug abuse patient.[facility] CenterIn the event this information is protected by the Federal Confidentiality of Alcohol and Drug Abuse Patient Records regulations: The Federal rules restrict any use of the information to criminally investigate or prosecute any alcohol or drug abuse patient.[facility] CenterIn the event this information is protected by the Federal Confidentiality of Alcohol and Drug Abuse Patient Records regulations: The Federal rules restrict any use of the information to criminally investigate or prosecute any alcohol or drug abuse patient.[facility] CenterIn the event this information is protected by the Federal Confidentiality of Alcohol and Drug Abuse Patient Records regulations: The Federal rules restrict any use of the information to criminally investigate or prosecute any alcohol or drug abuse patient.[facility] CenterIn the event this information is protected by the Federal Confidentiality of Alcohol and Drug Abuse Patient Records regulations: The Federal rules restrict any use of the information to criminally investigate or prosecute any alcohol or drug abuse patient.[facility] CenterIn the event this information is protected by the Federal Confidentiality of Alcohol and Drug Abuse Patient Records regulations: The Federal rules restrict any use of the information to criminally investigate or prosecute any alcohol or drug abuse patient.[facility] CenterIn the event this information is protected by the Federal Confidentiality of Alcohol and Drug Abuse Patient Records regulations: The Federal rules restrict any use of the information to criminally investigate or prosecute any alcohol or drug abuse patient.[facility] CenterIn the event this information is protected by the Federal Confidentiality of Alcohol and Drug Abuse Patient Records regulations: The Federal rules restrict any use of the information to criminally investigate or prosecute any alcohol or drug abuse patient.[facility] CenterIn the event this information is protected by the Federal Confidentiality of Alcohol and Drug Abuse Patient Records regulations: The Federal rules restrict any use of the information to criminally investigate or prosecute any alcohol or drug abuse patient.[facility] CenterIn the event this information is protected by the Federal Confidentiality of Alcohol and Drug Abuse Patient Records regulations: The Federal rules restrict any use of the information to criminally investigate or prosecute any alcohol or drug abuse patient.[facility] CenterIn the event this information is protected by the Federal Confidentiality of Alcohol and Drug Abuse Patient Records regulations: The Federal rules restrict any use of the information to criminally investigate or prosecute any alcohol or drug abuse patient.[facility] CenterIn the event this information is protected by the Federal Confidentiality of Alcohol and Drug Abuse Patient Records regulations: The Federal rules restrict any use of the information to criminally investigate or prosecute any alcohol or drug abuse patient.[facility] CenterIn the event this information is protected by the Federal Confidentiality of Alcohol and Drug Abuse Patient Records regulations: The Federal rules restrict any use of the information to criminally investigate or prosecute any alcohol or drug abuse patient.[facility] Reason for Visit (unrecogniz ed section and content) Reason Comments Infusion Headache Specialty Diagnoses / Procedures Referred By Contac t Referred To Contact Neurology / HEADACHE Diagnoses NON-DHE #1 Procedures INFUSION HEADACHE Suzan Driver APRN.DIET COUNSELOR [address] [place] [address] Neur Headache Main [address] [place] [address] Referral ID Status Reason Start Date Expiration Date V isits Requested Visits Authorized [id number] Authorized 04/12/2023 02/20/2024 99 99 Reason Comments Migraine Specialty Diagnoses / Procedures Referred By Contac t Referred To Contact Diagnoses Intractable chronic migraine without aura and without status migrainosus Procedures PROVIDER ORDERED FOLLOW UP OFFICE/OUTPATIENT [facility] 60 MINUTES Logan Barth, UMANG.DIET COUNSELOR [address] [place] [address] Referral ID Status Reason Start Date Expiration Date V isits Requested Visits Authorized [id number] Closed PCP Requested Referral 10/10/2023 07/09/2024 1 1 Specialty Diagnoses / Procedures Referred By Contac t Referred To Contact Diagnoses Intractable chronic migraine without aura and without status migrainosus Procedures INJECTION, EPTINEZUMAB-JJMR, 1 MG Logan Barth, PROTOTYPE ENGINEER.DIET COUNSELOR [address] [place] [address] Neur Headache Main [address] [place] [address] Referral ID Status Reason Start Date Expiration Date V isits Requested Visits Authorized [id number] Authorized 09/20/2023 03/22/2024 2 2 Reason Comments Nerve Block Specialty Diagnoses / Procedures Referred By Contac t Referred To Contact Neurology / HEADACHE Diagnoses NON-DHE #1 Procedures INFUSION HEADACHE Suzan Driver, PROTOTYPE ENGINEER.DIET COUNSELOR [address] [place] [address] Neur Headache Main [address] [place] [address] Reason Comments Headache Infusion Reason Comments Future Appointment [place], [place], Any Reason Comments Migraine seen at [place] yest erday for Migrane and D & [...] INFUSION HEADACHE Abdifatah Brady MD [address] [place] [address] Neur Headache Main [address] [place] [address] Referral ID Status Reason Start Date Expiration Date Visits Re quested Visits Authorized [id number] Closed 07/28/2022 09/26/2022 1 1 Reason Comments Chronic Migraine Reason Comments Chronic Migraine Reason Comments Insurance Authorization Zomig 5MG nasal spray Reason Comments Infusion Specialty Diagnoses / Procedures Referred By Contac t Referred To Contact Neurology / HEADACHE Diagnoses POSSIBLE DHE/WAITING FOR ORDERS Procedures INFUSION HEADACHE Self Neur Headache [address] [place] [id number] Referral ID Status Reason Start Date Expiration Date V isits Requested Visits Authorized [id number] Authorized 11/10/2022 02/08/2023 1 99 Reason Onset [...] Headache Specialty Diagnoses / Procedures [facility] To Contact Neurology / HEADACHE Diagnoses Chronic migraine without aura, intractable, without status migrainosus Migraines Nerve Block Procedures INJECTION AA&/STRD GREATER OCCIPITAL NERVE NERVE BLOCK Logan Barth APRN.DIET COUNSELOR [address] [place] [address] Tyrone Dolan MD, PhD [address] [facility] [address] [place] [address] Referral ID Status Reason Start Date Expiration Date Visits Re quested Visits Authorized [id number] Closed 08/28/2023 02/20/2024 1 1 Reason Onset Date Comments Refill Request 11/10/2023 Specialty Diagnoses / Procedures Referred By Contac t Referred To Contact Diagnoses Intractable chronic migraine without aura and without status migrainosus Procedures INJECTION, EPTINEZUMAB-JJMR, 1 MG Logan Barth, UMANG.DIET COUNSELOR [address] [place] [address] Neur Headache [address] [place] [address] Reason Comments Fatigue Dizzy, shaky, very t ired, can't stay awake. clm Reason Comments Med Refill Reason Comments Shortness of Breath Leg Swelling Reason Comments Follow-up Clogged ears, hard t o breathe Reason Comments Follow-up Fever runny nose, vo miting, Reason Comments Follow-up Vomiting Ongoing for about 3 weeks Diarrhea Reason Comments Insurance Authorization Zolmitriptan Reason Comments follow up ultrasound Reason Comments ER Follow-up Reason Comments Testing Reason Onset Date Comments Other 03/21/2024 Surgery question s Reason Comments New Patient Cough denies Wheezing Reports mostly at ni ght Shortness of Breath denies Specialty Diagnoses / Procedures Referred By Contac t Referred To Contact Pulmonary Medicine Diagnoses Bilateral ovarian cysts Moderate asthma with acute exacerbation, unspecified whether persistent Encounter for preoperative pulmonary examination Mundo Martinez MD [address] [place] [address] Phone: tel: fax: Jefry Hills MD [address], [address] [address] Phone: tel: fax: Referral ID Status Reason Start Date Expiration Date Visits Requested Visits Authorized [id number] Pending Review Specialty Services Required 03/20/2024 03/20/2025 1 1 Scheduled Active and Recently Administ [...] dose 2044 (Given - Provid er: Praveena Ruffin, PRATIBHA) ondansetron (ZOFRAN) injection 4 mg (COMPLETED) 4 mg, IntraVENous, ONCE, On Meg 12/24/20 at 2030, For 1 dose 2043 (Given - Provid er: Praveena Ruffin, PRATIBHA) Scheduled Medication Order 10/18/2021 10/19/2021 10/20/2021 enoxaparin [...] off 08 (Patch Applied - Provider: Clementine Cm, PRATIBHA)2033 (Due: Patch Removed - Provider: Clementine Cm, PRATIBHA) midazolam PF (VERSED) injection 1 mg (COMPLETED) [...] Midline or Central Line = 20 mL/lumen 5 (Given - Provider: Brittney Santana RN) 1114 (Canceled Entry - Provider: Clementine Cm, RN)2100 (Due) Continuous Medication Order 10/18/2021 10/19/2021 [...] content) DATE CREATED AUTHOR 12/26/2020 Maggie Espinal [facility] DATE CREATED AUTHOR AUTHOR'S ORGANIZ ATION 10/25/2021 [facility] DATE CREATED AUTHOR AUTHOR'S ORGANIZ ATION 05/26/2022 Edil Sherman [facility] DATE CREATED AUTHOR AUTHOR'S ORGANIZ ATION 08/02/2022 [facility] DATE CREATED AUTHOR AUTHOR'S ORGANIZ ATION 03/09/2024 [facility] Special[facility] EPIC DATE CREATED AUTHOR AUTHOR'S ORGANIZ ATION 03/15/2024 [facility] DATE CREATED AUTHOR AUTHOR'S ORGANIZ ATION 03/23/2024 [facility] Ordered Prescriptions (unrec ognized section and content) Prescription Sig Dispensed Refills Start Date End Da te lamoTRIgine (LAMICTAL) 25 MG tablet Take 2 tablets by mouth daily 30 tablet 3 10/21/2021 Care Teams (unrecognized sec tion and content) Overhauler Helper Relationship Specialty Start Date End Date Angélica Arthur, PROTOTYPE ENGINEER - DIET COUNSELOR [address] [place] [address] PCP - General Nurse Practitioner 12/24/20 Overhauler Helper Relationship Specialty Start Date End Date HoAbdifatah bean M (Historical) PCP - General 05/21/13 Overhauler Helper Relationship Specialty Start Date End Date Hoy Abdifatah M (Historical) PCP - General 05/21/13 Overhauler Helper Relationship Specialty Start Date End Date Hoy Abdifatah M (Historical) PCP - General 05/21/13 Overhauler Helper Relationship Specialty Start Date End Date Hoy, Abdifatah M (Historical) PCP - General 05/21/13 Overhauler Helper Relationship Specialty Start Date End Date Hoy Abdifatah M (Historical) PCP - General 05/21/13 Overhauler Helper Relationship Specialty Start Date End Date Hoy Abdifatah M (Historical) PCP - General 05/21/13 Overhauler Helper Relationship Specialty Start Date End Date Hoy, Abdifatah M (Historical) PCP - General 05/21/13 Overhauler Helper Relationship Specialty Start Date End Date Hoy, Abdifatah M (Historical) PCP - General 05/21/13 Overhauler Helper Relationship Specialty Start Date End Date Hoy, Abdifatah M (Historical) PCP - General 05/21/13 Overhauler Helper Relationship Specialty Start Date End Date Hoy, Abdifatah M (Historical) PCP - General 05/21/13 Overhauler Helper Relationship Specialty Start Date End Date Hoy Abdifatah M (Historical) PCP - General 05/21/13 Overhauler Helper Relationship Specialty Start Date End Date Hoy, Abdifatah M (Historical) PCP - General 05/21/13 Overhauler Helper Relationship Specialty Start Date End Date Hoy, Abdifatah M (Historical) PCP - General 05/21/13 Overhauler Helper Relationship Specialty Start Date End Date Hoy, Abdifatah M (Historical) PCP - General 05/21/13 Overhauler Helper Relationship Specialty Start Date End Date Hoy, Abdifatah M (Historical) PCP - General 05/21/13 Overhauler Helper Relationship Specialty Start Date End Date Hoy, Abdifatah M (Historical) PCP - General 05/21/13 Overhauler Helper Relationship Specialty Start Date End Date Hoy, Abdifatah M (Historical) PCP - General 05/21/13 Overhauler Helper Relationship Specialty Start Date End Date Hoy, Abdifatah M (Historical) PCP - General 05/21/13 Overhauler Helper Relationship Specialty Start Date End Date Hoy, Abdifatah M (Historical) PCP - General 05/21/13 Overhauler Helper Relationship Specialty Start Date End Date Hoy, Abdifatah M (Historical) PCP - General 05/21/13 Overhauler Helper Relationship Specialty Start Date End Date Hoy, Abdifatah M (Historical) PCP - General 05/21/13 Overhauler Helper Relationship Specialty Start Date End Date Hoy, Abdifatah M (Historical) PCP - General 05/21/13 Overhauler Helper Relationship Specialty Start Date End Date Hoy, Abdifatah M (Historical) PCP - General 05/21/13 Overhauler Helper Relationship Specialty Start Date End Date Hoy, Abdifatah M (Historical) PCP - General 05/21/13 Overhauler Helper Relationship Specialty Start Date End Date Hoy, Abdifatah M (Historical) PCP - General 05/21/13 Overhauler Helper Relationship Specialty Start Date End Date Hoy, Abdifatah M (Historical) PCP - General 05/21/13 Overhauler Helper Relationship Specialty Start Date End Date Hoy, Abdifatah M (Historical) PCP - General 05/21/13 Overhauler Helper Relationship Specialty Start Date End Date Hoy, Abdifatah M (Historical) PCP - General 05/21/13 Overhauler Helper Relationship Specialty Start Date End Date Hoy, Abdifatah M (Historical) PCP - General 05/21/13 Overhauler Helper Relationship Specialty Start Date End Date Hoy, Abdifatah M (Historical) PCP - General 05/21/13 Overhauler Helper Relationship Specialty Start Date End Date Hoy, Abdifatah M (Historical) PCP - General 05/21/13 Overhauler Helper Relationship Specialty Start Date End Date Abdifatah Brady (Historical) PCP - General 05/21/13 Overhauler Helper Relationship Specialty Start Date End Date Abdifatah Brady (Historical) PCP - General 05/21/13 Overhauler Helper Relationship Specialty Start Date End Date Abdifatah Brady (Historical) PCP - General 05/21/13 Overhauler Helper Relationship Specialty Start Date End Date Lamont Shay MD [address] [place] [phone] PCP - General Family Medicine 03/14/23 Overhauler Helper Relationship Specialty Start Date End Date Abdifatah Brady (Historical) PCP - General 05/21/13 Overhauler Helper Relationship Specialty Start Date End Date Lamont Shay MD [address] [place] [phone] PCP - General Family Medicine 03/14/23 Overhauler Helper Relationship Specialty Start Date End Date Lamont Shay MD [address] [place] [phone] PCP - General Family Medicine 03/14/23 Overhauler Helper Relationship Specialty Start Date End Date bAdifatah Brady (Historical) PCP - General 05/21/13 Overhauler Helper Relationship Specialty Start Date End Date Abdifatah Brady (Historical) PCP - General 05/21/13 Overhauler Helper Relationship Specialty Start Date End Date Lamont Shay MD [address] [place] [phone] PCP - General Family Medicine 03/14/23 Overhauler Helper Relationship Specialty Start Date End Date Abdifatah Brady (Historical) PCP - General 05/21/13 Overhauler Helper Relationship Specialty Start Date End Date Lamont Shay MD [address] [place] [phone] PCP - General Family Medicine 03/14/23 Overhauler Helper Relationship Specialty Start Date End Date Lamont Shay MD [address] [place] [address] PCP - General Family Medicine 03/14/23 Overhauler Helper Relationship Specialty Start Date End Date Lamont Shay MD [address] [place] [address] PCP - General Family Medicine 03/14/23 Overhauler Helper Relationship Specialty Start Date End Date Lamont Shay MD [address] [place] [address] PCP - General Family Medicine 03/14/23 Overhauler Helper Relationship Specialty Start Date End Date Lamont Shay MD [address] [place] [address] PCP - General Family Medicine 03/14/23 Overhauler Helper Relationship Specialty Start Date End Date Lamont Shay MD [address] [place] [address] PCP - General Family Medicine 03/14/23 Overhauler Helper Relationship Specialty Start Date End Date Lamont Shay MD [address] [place] [address] PCP - General Family Medicine 03/14/23 Overhauler Helper Relationship Specialty Start Date End Date Lamont Shay MD [address] [place] [address] PCP - General Family Medicine 03/14/23 Overhauler Helper Relationship Specialty Start Date End Date Lamont Shay MD [address] [place] [phone] PCP - General Family Medicine 03/14/23 Overhauler Helper Relationship Specialty Start Date End Date Lamont Shay MD [address] [place] [address] PCP - General Family Medicine 03/14/23 Overhauler Helper Relationship Specialty Start Date End Date Lamont Shay MD [address] [place] [address] PCP - General Family Medicine 03/14/23 Overhauler Helper Relationship Specialty Start Date End Date Lamont Shay MD [address] [place] [address] PCP - General Family Medicine 03/14/23 Overhauler Helper Relationship Specialty Start Date End Date Lamont Shay MD [address] [place] [address] PCP - General Family Medicine 03/14/23 Overhauler Helper Relationship Specialty Start Date End Date Lamont Shay MD [address] [place] [address] PCP - General Family Medicine 03/14/23 Overhauler Helper Relationship Specialty Start Date End Date Lamont Shay MD PCP - General Family Medicine 06/22/22 Overhauler Helper Relationship Specialty Start Date End Date Lamont Shay MD PCP - General Family Medicine 06/22/22 Overhauler Helper Relationship Specialty Start Date End Date Lamont Shay MD PCP - General Family Medicine 06/22/22 Overhauler Helper Relationship Specialty Start Date End Date Lamont Shay MD PCP - General Family Medicine 06/22/22 Overhauler Helper Relationship Specialty Start Date End Date Lamont Shay MD PCP - [facility] 06/22/22 Overhauler Helper Relationship Specialty Start Date End Date Lamont Shay MD PCP - [facility] 06/22/22 Overhauler Helper Relationship Specialty Start Date End Date Corine Gold MD [address] [place] [address] PCP - General Internal Medicine 03/25/24 Inactive Administered Medications - up to 3 [...] BE BASED ON THE PRIMARY CLINICAL RECORDS. [facility]. provides no warranty or guarantee of the accuracy or completeness of information in this document.
--- NOTE | 2024-03-30 06:27 | ED_ITS ---
HPI HPI - General Adult General Chief complaint: Nausea/Vomiting/Diarrhea Stated complaint: POST OP COMPLICATIONS Time Seen by Provider: 03/30/24 06:16 Source: patient Mode of arrival: walk-in Limitations: no limitations History of Present Illness HPI narrative: 28-year-old female presents to the emergency department for abdominal pain and nausea and vomiting. 2 days ago she had outpatient bilateral oophorectomy for ovarian cyst and it was done at [facility]. She has been taking Zofran and oxycodone but it does not seem to be helping. She states she spoke to her social problems specialist who told her to come to the emergency department. The pain is severe and continuous Related Data Home Medications ?Medication ?Instructions ?Recorded ?Confirmed baclofen 10 mg tablet 10 mg PO TID PRN spasms 07/20/22 03/30/24 diazepam 10 mg tablet 5 mg PO QID PRN seizures 07/20/22 03/30/24 epinephrine 0.3 mg/0.3 mL 0.3 mg IM Q10M PRN anaphylaxis 07/20/22 03/30/24 injection, auto-injector diphenhydramine HCl 25 mg capsule 75 mg PO Q6H PRN migraine headache 01/26/23 03/30/24 (Benadryl) trazodone 300 mg tablet 300 mg PO .qhs 03/03/23 03/30/24 lithium carbonate 300 mg tablet 600 mg PO Q12H 04/27/23 03/30/24 albuterol sulfate 90 mcg/actuation 2 puff inhalation Q4H PRN 08/16/23 03/30/24 aerosol inhaler shortness of breath or wheezing lamotrigine 150 mg tablet 150 mg PO BID 08/16/23 03/30/24 magnesium oxide 400 mg (241.3 mg 400 mg PO .qhs 08/16/23 03/30/24 magnesium) tablet promethazine 12.5 mg tablet 12.5 mg PO Q6H PRN nausea and 08/16/23 03/30/24 vomiting vilazodone 40 mg tablet 40 mg PO DAILY 08/16/23 03/30/24 zolmitriptan 5 mg nasal spray 1 spray intranasal Q2H PRN headache 08/16/23 03/30/24 Previous Rx's ?Medication ?Instructions ?Recorded ketorolac 10 mg tablet 10 mg PO Q8H PRN pain 2 days #6 05/13/23 tabs promethazine 25 mg rectal 25 mg LA Q6H PRN nausea and 01/15/24 suppository vomiting #6 ea Allergies Allergy/AdvReac Type Severity Reaction Status Date / Time dihydroergotamine Allergy Unknown Hives Verified 03/30/24 06:26 vortioxetine Allergy Unknown Hives Verified 03/30/24 06:26 buspirone Allergy Hives Verified 03/30/24 06:26 carbamazepine Allergy Unknown Verified 03/30/24 06:26 levetiracetam (From Keppra) Allergy ITCHING Verified 03/30/24 06:26 azithromycin (From Zithromax) AdvReac Intermediate Hives Verified 03/30/24 06:26 bee venom protein (honey bee) AdvReac Intermediate Hives Verified 03/30/24 06:26 metoclopramide (From Reglan) AdvReac Intermediate panic Verified 03/30/24 06:26 adhesive tape AdvReac Mild Rash Verified 03/30/24 06:26 cephalexin (From Keflex) AdvReac Mild Hives Verified 03/30/24 06:26 dextromethorphan (From AdvReac Mild Unknown Verified 03/30/24 06:26 [place] DM) pyrilamine (From [place] DM) AdvReac Mild Unknown Verified 03/30/24 06:26 prochlorperazine (From AdvReac Anxiety Verified 03/30/24 06:26 Compazine) propranolol AdvReac Hives Verified 03/30/24 06:26 Opioid HPI Opioid Management Most Recent Opioid Data: Last Pain Scale 7 02/09/24 15:49 02/09/24 Last ORT Total Score 0 08/16/23 14:51 08/16/23 Last ORT Risk Category Low Risk 08/16/23 14:51 08/16/23 Ur Phencyclidine Scrn Negative (NEGATIVE) 08/16/23 15:15 07/22 08/13 Review of Systems ROS Narrative A ten point review of systems is negative except as noted above. [facility] Medical History (Updated 03/30/24 @ 06:29 by Wild Kendall MD) Chronic pain disorder ?G89.4 - Chronic pain syndrome (ICD-10) Migraine ?G43.909 - Migraine, unspecified, not intractable, without status migrainosus (ICD-10) Seizure disorder ?G40.909 - Epilepsy, unspecified, not intractable, without status epilepticus (ICD-10) Bipolar disorder ?F31.9 - Bipolar disorder, unspecified (ICD-10) Pelvic pain ?R10.2 - Pelvic and perineal pain (ICD-10) Bilateral occipital neuralgia ?M54.81 - Occipital neuralgia (ICD-10) Combative behavior ?R46.89 - Other symptoms and signs involving appearance and behavior (ICD-10) PCOS (polycystic ovarian syndrome) ?E28.2 - Polycystic ovarian syndrome (ICD-10) Mitral valve prolapse ?I34.1 - Nonrheumatic mitral (valve) prolapse (ICD-10) GERD (gastroesophageal reflux disease) ?K21.9 - Gastro-esophageal reflux disease without esophagitis (ICD-10) Depression ?F32.A - Depression, unspecified (ICD-10) Blood in urine ?R31.9 - Hematuria, unspecified (ICD-10) Acne ?L70.9 - Acne, unspecified (ICD-10) Dyspareunia Brain mass ?G93.89 - Other specified disorders of brain (ICD-10) Kidney stones ?N20.0 - Calculus of kidney (ICD-10) COVID-19 ?U07.1 - COVID-19 (ICD-10) Bronchitis ?J40 - Bronchitis, not specified as acute or chronic (ICD-10) Asthma ?J45.909 - Unspecified asthma, uncomplicated (ICD-10) Stress incontinence ?N39.3 - Stress incontinence (female) (male) (ICD-10) Dysuria ?R30.0 - Dysuria (ICD-10) Anxiety ?F41.9 - Anxiety disorder, unspecified (ICD-10) Surgical History H/O laparoscopy (07/21/22) ?Z98.890 - Other specified postprocedural states (ICD-10) S/P RAVI-BSO ?Z90.710 - Acquired absence of both cervix and uterus (ICD-10) ?Z90.722 - Acquired absence of ovaries, bilateral (ICD-10) ?Z90.79 - Acquired absence of other genital organ(s) (ICD-10) Hx laparoscopic cholecystectomy ?Z90.49 - Acquired absence of other specified parts of digestive tract (ICD- 10) H/O: ?Z98.891 - History of uterine scar from previous surgery (ICD-10) History of appendectomy ?Z90.49 - Acquired absence of other specified parts of digestive tract (ICD- 10) Family History Other Acid reflux Acute renal disease Afib Chromosomal disorder Delayed developmental milestones Diabetes Family history of hypertension High cholesterol Neuro-irritability due to autonomic dysfunction 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 General: The patient appear in no apparent distress. Skin: Warm, dry, no pallor noted. There is no rash noted. Head: Normocephalic, atraumatic Eye: Normal conjunctiva, no drainage Ears, Nose, Mouth, and Throat: oral mucosa is moist. Nares patent. Cardiovascular: Regular Rate and Rhythm Respiratory: Patient is in no distress, no accessory muscle use, lungs are clear to auscultation, no wheezing, rales or rhonchi GI: Obese and nondistended. Surgical wounds are healing well. Mild diffuse tenderness Musculoskeletal: The patient has no evidence of calf tenderness, no pitting edema, symmetrical pulses noted bilaterally Neurological: A&O, normal speech Psychiatric: Cooperative Constitutional Vital Signs, click to edit/add: Last Vital Signs Temp 99.2 F 03/30/24 06:15 Pulse 98 H 03/30/24 06:15 Resp 16 03/30/24 06:15 BP 124/81 03/30/24 06:15 Pulse Ox 95 03/30/24 06:15 O2 Del Method Room Air 03/30/24 06:15 Course Vital Signs Vital signs: Vital Signs Temperature 99.2 F 03/30/24 06:15 Pulse Rate 98 H 03/30/24 06:15 Respiratory Rate 16 03/30/24 06:15 Blood Pressure 124/81 03/30/24 06:15 Pulse Oximetry 95 03/30/24 06:15 Oxygen Delivery Method Room Air 03/30/24 06:15 Temperature 99.2 F 03/30/24 06:15 Pulse Rate 98 H 03/30/24 06:15 Respiratory Rate 16 03/30/24 06:15 Blood Pressure 124/81 03/30/24 06:15 Pulse Oximetry 95 03/30/24 06:15 Oxygen Delivery Method Room Air 03/30/24 06:15 Medical Decision Making MDM Narrative Medical decision making narrative: Tests are ordered and the patient is ordered Zofran and IV fluids and morphine and the patient is signed out to Dr. Damian at change of shift. Differential Diagnosis Differential Diagnosis: Postoperative pain, UTI Discharge Plan Discharge Chief Complaint: Nausea/Vomiting/Diarrhea Clinical Impression: Abdominal pain Patient Disposition: Still a Patient Prescriptions / Home Meds: No Action baclofen 10 mg tablet 10 mg PO TID PRN (Reason: spasms) diazepam 10 mg tablet 5 mg PO QID PRN (Reason: seizures) epinephrine 0.3 mg/0.3 mL auto-injector 0.3 mg IM Q10M PRN (Reason: anaphylaxis) Rx Instructions: for 2 doses trazodone 300 mg tablet 300 mg PO .qhs lithium carbonate 300 mg tablet 600 mg PO Q12H ketorolac 10 mg tablet 10 mg PO Q8H PRN (Reason: pain) 2 Days Qty: 6 0RF albuterol sulfate 90 mcg/actuation HFA aerosol inhaler 2 puff INHALATION Q4H PRN (Reason: shortness of breath or wheezing) lamotrigine 150 mg tablet 150 mg PO BID magnesium oxide 400 mg (241.3 mg magnesium) tablet 400 mg PO .qhs promethazine 12.5 mg tablet 12.5 mg PO Q6H PRN (Reason: nausea and vomiting) vilazodone 40 mg tablet 40 mg PO DAILY zolmitriptan 5 mg spray,non-aerosol 1 spray INTRANASAL Q2H PRN (Reason: headache) Rx Instructions: May repeat once if needed after =2 hours promethazine 25 mg suppository 25 mg LA Q6H PRN (Reason: nausea and vomiting) Qty: 6 0RF diphenhydramine HCl [Benadryl] 25 mg capsule 75 mg PO Q6H PRN (Reason: migraine headache) Print Language: Zambian Referrals: Lamont Blair MD [Primary Care Provider] - 1 week
[2024-03-30 06:46] VITALS: O2SAT 95
--- NOTE | 2024-03-30 06:47 | PC.NURSE ---
This nurse attempted twice to place an IV in patient and was unsuccessful. Tawny RN attempted as well with no success. RN diet supervisor called to attempt to place IV. If unable, Day shift nurse who is ultrasound trained will attempt IV.
[2024-03-30] MEDS: ONDANSETRON PF 4 MG/2 ML VIAL IV (07:06)
[2024-03-30] MEDS: 0.9 % SODIUM CHLORIDE 1,000 ML 1000 ML IV (07:06)
[2024-03-30] MEDS: MORPHINE SULFATE 4 MG/ML VIAL IV (07:06)
[2024-03-30 07:07] LABS: Basophils Percent Auto 0.3 % (0.2-2.0); Eosinophils Absolute Auto 0.5 10^3/uL (0.0-0.7); Eosinophils Percent Auto 6.3 % (0.9-7.0); Hematocrit 34.8 % (36.0-48.0); Hemoglobin 11.3 g/dL (12.0-16.0); Immature Granulocytes Abs Auto 0.02 10^3/uL (0.00-0.03); Immature Granulocytes Pct Auto 0.3 % (0.0-0.5); Lymphocytes Absolute Auto 1.2 10^3/uL (1.2-3.8); Lymphocytes Percent Auto 16.1 % (20.5-60.0); Mean Corpuscular HGB Conc 32.5 g/dL (29.9-35.2); Mean Corpuscular Hemoglobin 28.9 pg (26.7-34.0); Mean Platelet Volume 9.7 fL (9.5-13.5); Monocytes Absolute Auto 0.6 10^3/uL (0.3-0.8); Monocytes Percent Auto 7.6 % (1.7-12.0); Neutrophils Percent Auto 69.4 % (43.0-75.0); Platelet Count 205 10^3/uL (150-450); Red Blood Count 3.91 10^6/uL (4.20-5.40); Red Cell Distribution Width 13.3 % (11.0-15.0); White Blood Count 7.3 10^3/uL (4.0-11.0)
[2024-03-30 07:12] VITALS: BP 119/85; PULSE 92; O2SAT 93
[2024-03-30 07:17] LABS: Anion Gap 11.4; BUN Creatinine Ratio 18.3; Calcium 8.7 mg/dL (8.5-10.1); Carbon Dioxide 29.7 mmol/L (21.0-32.0); Chloride 104 mmol/L (98-107); Estimated GFR (African America >60 (>=60 mL/min/1.73m^2); Estimated GFR (Non-African Ame >60 (>=60 mL/min/1.73m^2); Glucose 87 mg/dL (74-106); Potassium 3.1 mmol/L (3.5-5.1); Sodium 142 mmol/L (136-145)
== END 2024-03-30 08:11 | disposition home or self-care (01) ==
PROVIDERS: Emergency Provider Emergency Medicine; PCP Family Medicine
DX: G89.18 Other acute postprocedural pain (principal); R10.9 Unspecified abdominal pain; Z90.722 Acquired absence of ovaries, bilateral; Z90.710 Acquired absence of both cervix and uterus; Z90.49 Acquired absence of other specified parts of digestive tract
CPT/HCPCS: 36415; 80048; 81001; 85025; 96361; 96374; 96375; 99284; J2270; J2405

== ENCOUNTER 2024-04-07 13:26 | Emergency (ER) | payer OTHER, SELFPAY ==
--- OUTSIDE RECORDS SUMMARY | 2024-04-07 13:33 | XMS_ITS | CCD ---
Author Organization [facility] Care Team Providers Care Fisheries Enforcement Officer Name Role Phone Abdifatah Brady (Historical) Primary Care Provide r Unavailable Sandhya HECK - FADY Angélica Santiago Primary Care Provider SANDHYA ANGÉLICA Santiago Primary Care Unavailable VIELKA CHING Attending Unavailable Sandhya COLOR MAKER FORMULATOR - FADY, Angélica Santiago Primary Care Provider [...] Unavaila ble SUKHDEEP DOCKERY Attending Unavailable SUKHDEEP DOCEKRY Admitting Unavailable KUNKrupa, DR ANGÉLICA Santiago Primary [...] Admitting Unavailable PATRICIA WALSH Consulting Unavailable [facility], DR GOMEZ Primary Care Unavailable HAY ., DR HARMAN Attending Unavailable HAY ., DR HARMAN Admitting Unavailable NEWATIA, NICHOLAS Consulting Unavailable UNLU, SINDY Consulting Unavailable ROOPA ., DR GUTIERREZ Admitting Unavailable ROOPA ., DR GUTIERREZ Consulting Unavailable [facility] Primary Care Unavailable ROOPA ., DR GUTIERREZ Attending Unavailable KUNS, DR ANGÉLICA Santiago Primary Care Unavailable ROOPA ., DR GUTIERREZ Admitting Unavailable ROOPA ., DR GUTIERREZ Attending Unavailable ROOPA ., DR GUTIERREZ Consulting Unavailable ROOPA ., DR GUTIERREZ Admitting Unavailable ROOPA ., DR GUTIERREZ Attending Unavailable NADERER, DR LAMONT Garcia Primary Care Unavailable [facility] Primary Care Unavailable HAY ., [...] DR NONE LISTED Primary Care Unavaila ble AGUBOSIShane, BARON Consulting Unavailable ROOPA ., DR GUTIERREZ [...] Unavailable Lamont Shay MD Primary Care Provider Lamont Shay MD Primary Care Provider LOGAN BARTH Attending Unavailable GREEN, KOLI Referring Unavailable BIDDLECOM, SUZAN Referring Unavailable BIDDLECOM, SUZAN Referring Unavailable BIDDLECOM, SUZAN Attending Unavailable ОЛЬГА AGUILAR Attending Unavailable BIDDLECOM, SUZAN Referring Unavailable GREEN, KOLI Referring Unavailable ОЛЬГА AGUILAR Attending Unavailable GREEN, KOLI Referring Unavailable GREEN, LOGAN Attending Unavailable CURTIS LEPE Attending Unavailable BIDDLECOM, SUZAN Referring Unavailable GREEN, KOLI Referring Unavailable GREEN, CAMERONI Attending Unavailable RAIZA MORALES Attending Unavailable BIDDLECOM, SUZAN Referring Unavailable GREEN, KOLI Attending Unavailable BIDDLECOM, SUZAN Referring Unavailable BIDDLECOM, SUZAN Attending Unavailable BIDDLECOM, SUZAN Referring Unavailable BIDDLECOM, SUZAN Referring Unavailable Corine Gold MD Primary Care Provider [phone] ZAY BLAS Attending Unavailable ZAY BLAS Attending Unavailable SHAIKH WALLS Attending Unavailable ZAY BLAS Attending Unavailable LAMONT SHAY Attending Unavailable LAMONT SHAY Attending Unavailable ROOPAZAY MOSER Attending Unavailable LAMONT SHAY Attending Unavailable LAMONT SHAY Attending Unavailable LAMONT SHAY Attending Unavailable ZAY BLAS Attending Unavailable ZAY BLAS Attending Unavailable Dariusz Estrada Admitting Unavailable Dariusz Estrada Attending Unavailable Lamont Shay Primary Care Unavailable Ramsey Maloney Admitting Unavailab le Ramsey Maloney Attending Unavailab le NON STAFF Primary Care Unavailable Allergies Allergy Classification Reported Allergen(s) Allergy Type Date of Onset Reaction(s) Facility Anti-Epileptic Agents (1 source) levETIRAcetam Drug Allergy 023 Itching [facility] Work Phone: Cephalosporins (antibiotic) (1 source) Cephalexin Drug Allergy Rash [facility] Dextromethorphan / Pyrilamine (1 source) Dextromethorphan / Pyrilamine Drug Allergy 022 Hives [facility] Work Phone: Dihydroergotamine (1 source) Dihydroergotamine Drug Allergy 023 Intolerance [facility] DOPamine Antagonists (1 source) Metoclopramide Drug Allergy Intolerance [facility] Macrolides (antibiotic) (1 source) Azithromycin Drug Allergy Other: See Comments [facility] vortioxetine (1 source) vortioxetine Drug Allergy Hives [facility] (20 sources) Azithromycin; Translations: [AZITHROMYCIN] Drug Allergy Hives, Other: See Comments [facility] (14 sources) carBAMazepine Drug Allergy Other (See Comments) [facility] (20 sources) Cephalexin; Translations: [CEPHALEXIN] Drug Allergy Hives, Rash [facility] (20 sources) Metoclopramide; Translations: [METOCLOPRAMIDE] Drug Allergy Hives, Intolerance, Unknown, Rash, Other (See Comments) [facility] (14 sources) Propranolol Drug Allergy Hives, Other (See Comments) [facility] Adhesive Tape-Silicones; Translations: [ADHESIVE TAPE-SILICONES] Drug Allergy Rash [facility] (20 sources) Dextromethorphan / Pyrilamine; Translations: [PYRILAMINE-DEXTROME THORPHAN] Drug Allergy 022 [facility] Work Phone: (20 sources) vortioxetine; Translations: [VORTIOXETINE] Drug Allergy 022 [facility] Work Phone: (20 sources) Dihydroergotamine; Translations: [DIHYDROERGOTAMINE] Drug Allergy 023 Intolerance, GI intolerance, GI Disturbance, [facility] (1 source) Azithromycin Drug Allergy [facility] (1 source) bee venom Drug allergy (disorder) [facility] (1 source) Cephalexin Drug Allergy [facility] (1 source) Desonide Drug Allergy [facility] (1 source) Iothalamate Drug Allergy [facility] (2 sources) Propranolol; Translations: [PROPRANOLOL] Drug Allergy [address] [facility] (1 source) [place] DM Drug allergy (disorder) [facility] (20 sources) levETIRAcetam; Translations: [LEVETIRACETAM] Drug Allergy 023 Itching, [facility] Work Phone: (2 sources) Valproate; Translations: [DIVALPROEX] Drug Allergy 024 [facility] Work Phone: (20 sources) busPIRone Drug Allergy 022 [facility] Work Phone: (20 sources) Carbamazepine Allergy to substance 021 Unknown [facility] (20 sources) Ciprofloxacin Drug Allergy 023 [facility] (20 sources) Clarithromycin Allergy to substance 024 GI intolerance [facility] (20 sources) Clindamycin Drug Allergy 021 Unknown, [facility] (20 sources) Dextromethorphan Drug Allergy 023 [facility] (20 sources) Dextromethorphan / Pyrilamine Drug Allergy 022 Hives [facility] (20 sources) Honey bee venom Allergy to substance Unknown [facility] (20 sources) Levetiracetam Propensity to adverse reactions Itching [facility] (20 sources) Propranolol Drug Allergy Hives, Other: See Comments [facility] (20 sources) vortioxetine Drug Allergy Hives [facility] (20 sources) Other [facility] (20 sources) Wound Dressing Adhesive Drug Allergy Rash [facility] (20 sources) Prochlorperazine; Translations: [PROCHLORPERAZINE] Drug Allergy Intolerance, Anxiety [facility] (12 sources) Adhesive agent Propensity to adverse reactions to drug Rash [facility] (12 sources) Dexamethasone Drug Allergy [facility] (12 sources) Metoclopramide Drug Allergy Itching, Anxiety [facility] (12 sources) Bee Venom Protein (Honey Bee) Propensity to adverse reactions to drug Anaphylaxis [facility] (1 source) Azithromycin Drug Allergy [facility] (1 source) Cephalexin Drug Allergy [facility] (1 source) levETIRAcetam Drug Allergy [facility] (1 source) Metoclopramide Drug Allergy [facility] (1 source) Prochlorperazine Drug Allergy [facility] Medications Current Medications Medication Drug Class(es) Dates Sig (Normalized) Sig (Original) acetaminophen 500 mg oral tablet (6 sources) Start: 03-28-2024 take 2 tablets by mouth every six hours as needed for pain acetaminophen (TYLENOL EXTRA STRENGTH) 500 mg tablet Take 2 tablets (1,000 mg total) by mouth every 6 (six) hours as needed for pain. 30 tablet 2 03/28/2024 Active Start: 10-19-2021 acetaminophen (TYLENOL) tablet 1,000 mg [...] (16 sources) Non-narcotic Antitussive Start: 024 End: 01-08-2 025 take 1 capsule by mouth three [...] tablet (20 sources) Histamine-1 Receptor Antagonist Start: 023 End: take 1 tablet by mouth in [...] immediately at onset of headache for rescue. clindamycin 300 mg oral capsule (2 sources) Lincosamide Antibacterial Start: 04-02-19 25 End: 02-21-20 25 take 1 capsule by mouth in the morning, then take 1 capsule by mouth in the evening, then take 1 capsule by mouth at bedtime clindamycin (Cleocin) 300 MG capsule Indications: Visit for wound check Take 1 capsule (300 mg) by mouth in the morning and 1 capsule (300 mg) in the evening and 1 capsule (300 mg) before bedtime. Do all this for 10 days. 30 capsule 04/02/2024 04/12/2024 Active dexamethasone 6 mg oral tablet (3 sources) [...] for 7 days 05/12/2023 01/09/2024 Discontinued diazePAM 5 mg oral tablet (20 sources) Benzodiazepine Start: 03-28-19 diazePAM (VALIUM) tablet 5 mg Start: 11-23-2021 End: 02-28-2024 diazePAM (VALIUM) 10 mg tabl et 11/23/2021 Active take 0.5 tablet by m [...] hours as needed for Anxiety. 0 Suspended docusate sodium 50 mg / sennosides, penitentiary 8.6 mg oral tablet (4 sources) Start: 03-28-2024 take 1 tablet by mouth at bedtime sennosides-docusate sodium (SENNA WITH DOCUSATE SODIUM) 8.6-50 mg Take 1 tablet by mouth in the morning and at bedtime. 30 tablet 1 03/28/2024 Active doxycycline hyclate 100 mg oral tablet (6 [...] minutes after.. 20 tablet 01/23/2024 02/09/2024 Discontinued [id number] 0.3 ml EPINEPHrine 1 mg/ml auto-injector (12 sources) alpha-Adrenergic Agonist, beta-Adrenergic Agonist, Catecholamine Start: 06-07-2022 EPINEPHrine (EPIPEN) 0.3 mg/0.3 mL auto-injector 0.3 mL (0.3 mg total) by other route as needed (exposure to allergen). 2 each 06/07/2022 Active estradiol 1 mg oral tablet (20 sources) Estrogen Start: 06-29-2023 End: 02-28-2024 take 1 tablet by mouth once daily in the morning estradiol (Estrace) 1 MG tablet Indications: Vaginal discharge , Pelvic pain in female take 1 tablet by mouth every morning 30 tablet 3 06/29/2023 02/28/2024 Discontinued fluticasone-umecli din-vilanter (TRELEGY ELLIPTA) 200-62.5-25 mcg blister with device (8 sources) Start: 03-20-2024 take 1 puff(s) by inhalation in the morning fluticasone-umeclidin- vilanter (TRELEGY ELLIPTA) 200-62.5-25 mcg blister with device Indications: Moderate asthma with acute exacerbation, unspecified whether persistent Inhale 1 puff in the morning. 60 each 03/20/2024 Active 60 actuat formoterol fumarate 0.005 mg/actuat / mometasone furoate 0.1 mg/actuat metered dose inhaler (20 sources) Corticosteroid, beta2-Adrenergic Agonist Start: 04-26-2023 End: 01-08-2025 take 2 puff(s) by inhalation in the [...] 10/25/2023 Active ibuprofen 800 mg oral tablet (13 sources) Nonsteroidal Anti-inflammatory Drug Start: 04-01-2024 take 1 tablet by mouth three times daily ibuprofen (MOTRIN) 800 mg tablet Indications: Post-op pain Take 1 tablet (800 mg total) by mouth 3 (three) times a day. 21 tablet 04/01/2024 Active Start: 02-10-2024 End: 04-01-2024 take 1 tablet by mouth three times daily ibuprofen (MOTRIN) 800 mg tablet Indications: Post-op pain Take 1 tablet (800 mg total) by mouth 3 (three) times a day. 21 tablet 04/01/2024 Active ketoconazole 20 mg/ml medicated shampoo (20 [...] ER (Eskalith) 450 MG 12 hr tablet [place] 01/09/2024 Discontinued loperamide hydrochloride 2 mg oral [...] twice daily. montelukast 10 mg oral tablet (12 sources) Leukotriene Receptor Antagonist Start: 06-07-2022 take [...] 12/12/2023 Active nystatin 100 unt/mg topical powder (13 sources) Polyene Antifungal Start: 01-24-2024 nystatin (M YCOSTATIN) powder APPLY TO THE AFFECTED AREA(S) topically TWICE DAILY 01/24/2024 Active Start: 01-24-2024 End: 04-23-2024 nystatin (Mycostatin) 155768 UNIT/GM powder Indications: Rash , Yeast dermatitis Apply topically 2 (two) times a day 60 g 01/24/2024 02/28/2024 Discontinued omeprazole 40 mg delayed release oral capsule (20 sources) Proton Pump Inhibitor Start: 03-20-2024 take 1 capsule by mouth in the morning omeprazole (PriLOSEC) 40 mg capsule Indications: Gastroesophageal reflux disease, unspecified whether esophagitis present Take 1 capsule (40 mg total) by mouth in the morning. 30 capsule 11 03/20/2024 Active Start: 01-27-2022 take 1 capsule by mo [facility] in the morning omeprazole (PriLOSEC) 20 mg capsule Take 1 capsule (20 mg total) by mouth in the morning. 30 capsule 1 01/27/2022 Active ondansetron 4 mg disintegrating oral tablet (20 sources) Serotonin-3 Receptor Antagonist Start: 02-10-2024 take 1 tablet by mouth every eight hours as needed for nausea and vomiting ondansetron ODT (ZOFRAN ODT) 4 mg disintegrating tablet Dissolve 1 tablet (4 mg total) on tongue every 8 (eight) hours as needed for nausea or vomiting. 20 tablet 03/28/2024 Active Start: 01-22-2024 End: 01-22-2024 8 mg, [...] th two times a day as needed. oxyCODONE hydrochloride 5 mg oral tablet (5 sources) Opioid Agonist Start: 2024 End: 2024 take 1 tablet by mouth every four hours as needed for pain oxyCODONE (ROXICODONE) 5 mg immediate release tablet Indications: pain Take 1 tablet (5 mg total) by mouth every 4 (four) hours as needed for pain for up to 7 days Indications: pain. Max Daily Amount: 30 mg 42 tablet 04/01/2024 04/08/2024 Active phentermine hydrochloride 37.5 mg oral tablet (20 [...] Start: 11-15-2023 take 6 tablets by mo [facility] once daily, then take 4 tablets by [...] Start: 11-15-2023 take 6 tablets by mo [facility] once daily, then take 4 tablets by [...] 08/31/2022 Active take 25 mg rectal ro shruthi every six hours as needed for nausea and vomiting promethazine (Phenergan) 25 MG suppository Insert 25 mg into the rectum every 6 (six) hours if needed for nausea or vomiting Active Comment on above: Take 12.5 mg by mout h every 6 hours as needed. Take 1 tablet by sami th every 6 hours as needed. 72 hr scopolamine 0.0139 mg/hr transdermal system (12 sources) Anticholinergic Start: 2024 End: 2024 apply [...] g 01/15/2024 01/22/2024 Active 28 actuat tiotropium 0.12536 mg/actuat inhalation spray (20 sources) Anticholinergic Start: [...] ZOMIG) 5 mg nasal spray Use 1 [place] in the nose as needed at onset of migraine headache. If symptoms persist or return, may repeat dose in other nostril after 2 hours. Maximum of 2 sprays per 24 hours 10 Each 2 06/24/2022 Active Start: 06-24-2022 take 1 spray(s) nasa l route every twenty-four hours as needed ZOLMitriptan (ZOMIG) 5 mg nasal spray Use 1 [place] in the nose as needed. SPRAY IN 1 NOSTRIL AT ONSET OF MIGRAINE HEADACHE. If symptoms persist or return, may repeat dose after 2 hours. Maximum: 5 mg/dose; 10 mg per 24 hours 10 Each 2 06/24/2022 Active Comment on above: Use 1 [place] in the n ose as needed. SPRAY IN 1 NOSTRIL AT ONSET OF MIGRAINE HEADACHE. If symptoms persist or return, may repeat dose after 2 hours. Maximum: 5 mg/dose; 10 mg per 24 hours Use 1 [place] in the n ose as needed at [...] eously once every month. Do not shake. fluconazole 150 mg oral tablet (3 sources) Azole Antifungal Start: End: take 1 tablet by mouth once, then take 1 tablet by mouth once fluconazole (Diflucan) 150 MG tablet Indications: Yeast infection Take 1 tablet (150 mg) by mouth 1 (one) time for 1 dose This is a 1 time dose, take single tablet by mouth. 1 tablet 1 04/02/2024 04/02/2024 Start: 01-24-2024 End: 01-28-2024 take 1 tablet by mouth once fluconazole (Diflucan) 150 MG tablet Indications: Rash , Yeast dermatitis Take 1 tablet (150 mg) by mouth every 3rd (third) day for 2 doses 2 tablet 01/24/2024 01/28/2024 Active FLUoxetine 20 mg oral capsule (2 sources) Serotonin Reuptake Inhibitor End: 10-20-2021 take 3 capsules by mouth once daily FLUoxetine (PROZAC) 20 MG capsule Take 60 mg by mouth daily 0 10/20/2021 Discontinued (Stop Taking at Discharge) 30 actuat fluticasone furoate 0.1 mg/actuat / umeclidinium 0.0625 mg/actuat / vilanterol 0.025 mg/actuat dry powder inhaler (5 sources) Anticholinergic, Corticosteroid, beta2-Adrenergic Agonist End: 03-20-2024 fluticasone-umecli din-vilanter (TRELEGY ELLIPTA) 100-62.5-25 mcg blister with device daily. 03/20/2024 Discontinued 1.5 ml fremanezumab-vfrm 150 mg/ml auto-injector (12 sources) Start: 11-25-2020 End: 03-25-2024 fremanezumab-vfrm 225 mg/1.5 mL auto-injector Indications: Chronic [...] tablet (8 sources) Start: 04-22-19 End: 03-25-19 25 take 1 tablet by mouth once guaiFENesin (MUCINEX) 600 mg tablet extended release 12hr Take 1 tablet (600 mg total) by mouth every 12 (twelve) hours. 60 tablet 1 04/21/2022 03/25/2024 Discontinued (Therapy completed) 1 ml ketorolac tromethamine 30 mg/ml injection (20 sources) Nonsteroidal Anti-inflammatory Drug, Cyclooxygenase Inhibitor Start: 01-22-20 End: 01-22-20 24 30 mg, INTRAVENOUS, ONCE, 1 dose, On 01/22/24 at 1330, Ketorolac (Toradol) is indicated for [...] over 0.5-1 Hours, ONCE, 1 dose, On 01/22/24 at 1330, Magnesium sulfate iv bolus will [...] 4 hours if needed polyethylene glycol 3350 29951 mg powder for oral solution (1 source) [...] 01-24-2023 Chronic Disorders of teeth and jaw (20 sources) Toothache; Translations: [Other specified disorders of teeth and supporting structures] Onset: 01-09-2024 01-09-2024 Episodic E Codes: Fall (1 source) Unspecified fall, initial encounter; Translations: [UNSPECIFIED FALL INITIAL ENCOUNTER] Onset: 05-25-2022 Episodic Endometriosis (1 source) Endometriosis, unspecified; Translations: [ENDOMETRIOSIS UNSPECIFIED] Onset: 08-18-2021 Chronic Epilepsy; convulsions (16 sources) Seizure disorder; Translations: [Epilepsy, unspecified, not [...] prolapse; Translations: [NONRHEUMATIC MITRAL VALVE PROLAPSE] Onset: 04-27-2023 Chronic Inflammatory diseases of female pelvic organs (2 sources) Female pelvic peritoneal adhesions; Translations: [Female pelvic peritoneal adhesions (postinfective)] 03-06-2024 Episodic Menstrual disorders (1 source) Dysmenorrhea, unspecified; Translations: [DYSMENORRHEA UNSPECIFIED] Onset: 10-08-2021 Chronic Miscellaneous mental health disorders (20 sources) Dissociative convulsions; Translations: [Conversion disorder with seizures or convulsions] Onset: 10-20-2021 Chronic Mood disorders (20 sources) Bipolar disorder, unspecified; Translations: [Major depressive disorder, single episode, unspecified] Onset: 10-21-2021 01-24-2023 Chronic Mycoses (2 sources) Mycosis; Translations: [Candidiasis, unspecified] 04-02-2024 Episodic Nausea and vomiting (20 sources) Nausea; Translations: [Nausea with vomiting, unspecified] Onset: 08-14-2021 Episodic Other aftercare (1 source) Other senior care (current) drug therapy; Translations: [OTH EMPLOYEE RELATIONS CONSULTANT CURRENT DRUG THERAPY] Onset: 06-22-2022 Episodic Other aftercare (2 sources) Wound finding; Translations: [Encounter for other specified aftercare] 04-02-2024 Episodic Other endocrine disorders (1 source) Polycystic [...] Onset: 01-19-2022 Chronic Other lower respiratory disease (16 sources) Dyspnea on exertion; Translations: [Shortness of breath] Onset: 01-23-2024 01-23-2024 Episodic Other lower respiratory disease (1 source) Nodule of lung; Translations: [Solitary pulmonary nodule] 03-20-2024 Episodic Other nervous system disorders (1 source) Tremor; Translations: [Tremor, unspecified] Episodic Other nervous system disorders (1 source) Postoperative pain ; Translations: [Other acute postprocedural pain] 04-01-2024 Episodic Other nutritional; endocrine; and metabolic disorders [...] Chronic Other nutritional; endocrine; and metabolic disorders (20 sources) Severe obesity; Translations: [Class 3 severe [...] TRACT] Onset: 06-22-2022 Episodic Residual codes; unclassified (16 sources) Edema, generalized; Translations: [Generalized edema] Onset: 01-23-2024 01-23-2024 Episodic Residual codes; unclassified (1 source) Preoperative state 03-20-2024 Episodic Residual codes; unclassified (5 sources) History of bilateral salpingo-oophorectom y; 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, bilateral] Onset: 03-28-2024 04-01-2024 Episodic Unclassified (3 sources) LOW BACK PAIN, [...] 10-10-2023 Episodic Coma; stupor; and brain damage (13 sources) Somnolence; Translations: [Loss of consciousness] Onset: 08-06-2021 08-06-2021 Episodic Contraceptive and procreative management (1 source) Tubal ligation status; Translations: [TUBAL LIGATION STATUS] Onset: 10-08-2021 Episodic Epilepsy; convulsions (20 sources) Neurological finding; Translations: [Unspecified convulsions] Onset: 10-19-2021 Episodic Malaise and fatigue (20 sources) Fatigue; Translations: [Other fatigue] Onset: 01-01-2024 01-01-2024 Episodic Mood disorders (13 sources) Mood disorders; Translations: [DEPRESSION UNSPECIFIED] Onset: 06-22-2022 03-03-2022 Other aftercare (19 sources) Long-term current use of drug therapy; Translations: [Other extermination supervisor (current) drug therapy] Onset: 01-01-2024 01-01-2024 Episodic Other gastrointestinal disorders (1 source) Diarrhea, unspecified; Translations: [DIARRHEA UNSPECIFIED] Onset: 10-08-2021 Episodic Other liver diseases (1 source) Hepatomegaly, not elsewhere classified; Translations: [HEPATOMEGALY NEC] Onset: 01-19-2022 Episodic Other lower respiratory disease (13 sources) Cough; Translations: [Acute cough] Onset: 01-27-2022 01-27-2022 Episodic Other nervous system disorders (5 sources) Other acute postprocedural pain; Translations: [OTHER ACUTE POSTPROCEDURAL PAIN] Onset: 10-05-2021 Episodic Other screening for suspected conditions (not mental disorders or infectious disease) (12 sources) Suspected disorder; Translations: [Encounter for suspected [...] Spondylosis; intervertebral disc disorders; other back problems (14 sources) Cervicalgia; Translations: [Neck pain] Onset: 08-06-2021 [...] (Bld) Positive [facility] Type and screen(includes ind irect ady)on 03-25-2024 ABO O [facility] Rh Nom (Bld) Positive [facility] Respiratory allergy panelon 03-21-2024 A. alternata IgE Qn (S) kU/L NINF - 0.10 kU/L [facility] Comment on above: Class 0: Normal A. fumigatus IgE Qn (S) kU/L NINF - 0.10 kU/L [facility] Comment on above: Class 0: Normal Italian house dust mite IgE Qn (S) kU/L NINF - 0.10 kU/L [facility] Comment on above: Class 0: Normal [place] grass IgE Qn (S) 0.95 kU/L High NINF - 0.10 kU/L [facility] Comment on above: Class 2:Moderate lev el of Allergy, indicative of stronger ongoing sensitization [place] IgE Qn (S) 0.15 kU/L High NINF - 0 .10 kU/L [facility] Comment on above: Class 0/1: Low level of Allergy, ongoing sensitization C. herbarum IgE Qn (S) kU/L NINF - 0.10 kU/L [facility] Comment on above: Class 0: Normal [place] [employer] Pollen IgE Qn (S) kU/L NINF - 0.10 kU/L [facility] Comment on above: Class 0: Normal Cat dander IgE Qn (S) 6.53 kU/L High NINF - 0.10 kU/L [facility] Comment on above: Class 3:High level o f Allergy, indicative of high level sensitization Cocklebur IgE Qn (S) 0.14 kU/L High NINF - 0.10 kU/L [facility] Comment on above: Class 0/1: Low level of Allergy, ongoing sensitization Cockroach IgE Qn (S) kU/L NINF - 0.10 kU/L [facility] Comment on above: Class 0: Normal Common Pigweed IgE Qn (S) kU/L NINF - 0.10 kU/L [facility] Comment on above: Class 0: Normal Common Ragweed IgE Qn (S) 0.37 kU/L High NINF - 0.10 kU/L [facility] Comment on above: Class 1:Low level of Allergy, indicative of ongoing sensitization [place] IgE Qn (S) 0.25 kU/L High NINF - 0.10 kU/L [facility] Comment on above: Class 0/1: Low level of Allergy, ongoing sensitization Dog dander IgE Qn (S) 52.5 kU/L High NINF - 0.10 kU/L [facility] Comment on above: Class 5:Very High le kyara of Allergy,indicative of very high level sensitization house dust mite IgE Qn (S) kU/L NINF - 0.10 kU/L [facility] Comment on above: Class 0: Normal [place] IgE Qn (S) kU/L NINF - 0.10 kU/L [facility] Comment on above: Class 0: Normal IgE Qn 602 [IU]/L High [facility] Interpretation and review of laboratory results Abnormal [facility] Ike grass IgE Qn (S) 0.96 kU/L High NINF - 0.10 kU/L [facility] Comment on above: Class 2:Moderate lev el of Allergy, indicative of stronger ongoing sensitization [place] blue grass IgE Qn (S) 2.55 kU/L High NINF - 0.10 kU/L [facility] Comment on above: Class 2:Moderate lev el of Allergy, indicative of stronger ongoing sensitization [place] IgE Qn (S) kU/L NINF - 0.10 kU/L [facility] Comment on above: Class 0: Normal Marte Elder IgE Qn (S) kU/L NINF - 0.10 kU/L [facility] Comment on above: Class 0: Normal [place] Jun[place] IgE Qn (S) kU/L NINF - 0.10 kU/L [facility] Comment on above: Class 0: Normal Mouse urine proteins IgE Qn (S) 0.34 kU/L [facility]L [facility] Comment on above: Class 0/1: Low level of Allergy, ongoing sensitization Mugwort IgE Qn (S) kU/L NINF - 0. 10 kU/L [facility] Comment on above: Class 0: Normal [place] IgE Qn (S) kU/L NINF - 0.1 0 kU/L [facility] Comment on above: Class 0: Normal P. notatum IgE Qn (S) kU/L NINF - 0.10 kU/L [facility] Comment on above: Class 0: Normal Pecan or [place] IgE Qn (S) 0.17 kU/L High [facility] - 0.10 kU/L [facility] Comment on above: Class 0/1: Low level of Allergy, ongoing sensitization Saltwort IgE Qn (S) 0.38 kU/L [facility] .[facility] kU/L [facility] Comment on above: Class 1:Low level of Allergy, indicative of ongoing sensitization Sheep Ewing IgE Qn (S) kU/L NINF - 0.10 kU/L [facility] Comment on above: Class 0: Normal [place] Birch IgE Qn (S) kU/L NINF - 0.10 kU/L [facility] Comment on above: Class 0: Normal Johan IgE Qn (S) 1.92 kU/L High NINF - 0. 10 kU/L [facility] Comment on above: Class 2:Moderate lev el of Allergy, indicative of stronger ongoing sensitization [place] IgE Qn (S) kU/L NINF - 0.10 kU/L [facility] Comment on above: Class 0: Normal [place] IgE Qn (S) kU/L NINF - 0.10 kU/L [facility] Comment on above: Class 0: Normal White mulberry IgE Qn (S) kU/L NINF - 0.10 kU/L [facility] Comment on above: Class 0: Normal [place] IgE Qn (S) kU/L NINF - 0.10 kU/L [facility] Comment on above: Class 0: Normal [facility] Pulmonary function test Spir ometry (Flow Volume Loop)Ordered By: Dinorah Cummins on 03-20-2024 [facility] CA 125on 03-18-2024 Cancer Ag 125 Qn 7 [arb'U]/mL 0 - 35 U/mL [facility] Comment on above: The method used for this test is Olga Dar[employer] DXI chemiluminescent immunoassay. Values obtained by different assay methods cannot be used interchangeably. CBC auto differentialon 02-21 Basophils (Bld) [#/Vol] 0 10*3/uL [facility] Basophils/100 WBC (Bld) 0.6 % [facility] Eosinophils (Bld) [#/Vol] 0.5 10*3/uL High [facility] Eosinophils/100 WBC (Bld) 8.4 % [facility] Erythrocyte distribution width (RBC) [Ratio] 13.6 % 11.5 - 15.0 % [facility] Hematocrit (Bld) [Volume fraction] 40.6 % 35 - 47 % [facility] Hemoglobin (Bld) [Mass/Vol] 13.7 g/dL 11.7 - 15.5 g/dL [facility] Interpretation and review of laboratory results Abnormal [facility] Lymphocytes (Bld) [#/Vol] 1.3 10*3/uL [facility] Lymphocytes/100 WBC (Bld) 23.5 % [facility] MCH (RBC) [Entitic mass] 29.2 pg 27 - 34 pg [facility] MCHC (RBC) [Mass/Vol] 33.7 g/dL 32 - 36 g/dL [facility] MCV (RBC) [Entitic vol] 87 fL 80 - 100 fL [facility] Monocytes (Bld) [#/Vol] 0.3 10*3/uL [facility] Monocytes/100 WBC (Bld) 5.3 % [facility] Neutrophils (Bld) [#/Vol] 3.5 10*3/uL [facility] Neutrophils/100 WBC (Bld) 62.2 % [facility] Platelet mean volume (Bld) [Entitic vol] 8.9 fL 7 - 12 fL [facility] Platelets (Bld) [#/Vol] 233 10*3/uL [facility] RBC (Bld) [#/Vol] 4.67 10*6/uL [facility] WBC corrected for nucl RBC Auto (Bld) [#/Vol] 5.7 [facility] CEAon 03-18-2024 Carcinoembryonic Ag [Mass/Vol] 0.9 ng/mL 0.0 - 3.0 ng/mL [facility] Comment on above: 0.0-3.0 ng/mL FOR NON SMOKERS 0.0-5.0 ng/mL FOR SMOKERS The method used for this test is [employer] DXI chemiluminescent immunoassay. Values obtained by different assay methods cannot be used interchangeably. Cancer Ag 125 Qnon [facility] Cancer Ag 19-9 Qnon 03-18-19 25 [facility] Cancer antigen 19-9on 2024 Cancer Ag 19-9 Qn U/mL 0.0 - 35.0 U/mL [facility] Comment on above: The method used for this test is [employer] DXI chemiluminescent immunoassay. Values obtained by different assay methods cannot be used interchangeably. Carcinoembryonic Ag [Mass/Vo l]on 03-18-2024 [facility] Comprehensive metabolic pane srikanth 03-18-2024 Albumin [Mass/Vol] 4.3 g/dL 3.2 - 5.3 g/dL [facility] ALP [Catalytic activity/Vol] 51 U/L 39 - 130 U/L [facility] ALT No additional P-5'-P [Catalytic activity/Vol] 21 U/L 0 - 31 U/L [facility] Anion gap [Moles/Vol] 10 mmol/L 5 - 15 mmol/L [facility] AST [Catalytic activity/Vol] 15 U/L 0 - 41 U/L [facility] Bilirubin [Mass/Vol] 0.5 mg/dL 0.3 - 1 .2 mg/dL [facility] Calcium [Mass/Vol] 9.2 mg/dL 8.5 - 10. 5 mg/dL [facility] Chloride [Moles/Vol] 104 mmol/L 98 - 10 9 mmol/L [facility] CO2 [Moles/Vol] 27 mmol/L 22 - 32 mmol/L [facility] Creatinine [Mass/Vol] 0.62 mg/dL 0.40 - 1.00 mg/dL [facility] Comment on above: METHOD TRACEABLE TO IDDC STANDARD eGFR (CKD-EPI)non-race dependent - PINF [facility] Comment on above: Reported eGFR is based on the CKD-EPI 2020 equation that does not use a race coefficient. Glucose [Mass/Vol] 88 mg/dL 65 - 99 mg/dL [facility] Interpretation and review of laboratory results Abnormal [facility] Potassium [Moles/Vol] 3.4 mmol/L Low 3.5 - 5.0 mmol/L [facility] Protein [Mass/Vol] 6.6 g/dL 6.0 - 8.0 g/dL [facility] Sodium [Moles/Vol] 141 mmol/L 134 - 146 mmol/L [facility] Urea nitrogen [Mass/Vol] 12 mg/dL 5 - 23 mg/dL [facility] CNPWendy 02-22-2024 CNPN Telephone ([facility]) ---- NICHOLSONCONI Pradeep ([id number]) 1995 F Date Time Provider Department 02/22/24 LOGAN BARTH [facility] During your visit today, we recorded the following information about you: Jannette Mcleod RN 02/22/2024 12:04 PM Signed Prior Authorization submitted via [employer] on 02/22/2024: Insurance: [place] Medicaid Medication: Zolmitriptan Chong Code: [id number] Awaiting Response Jannette Mcleod RN 03/14/2024 2:23 [...] - Intolerance Date Reviewed: 01/22/2024 Reviewed by: Hamdan, Mohammad, COLOR MAKER FORMULATOR.PASTRYCOOK - Fully Assessed Reason for Visit: Insurance Authorization [0203] Cmt: Zolmitriptan Prescriptions as of 03/14/2024 - ZOLMitriptan (ZOMIG) 5 mg nasal spray Use 1 [place] in the nose as needed at onset [...] Status:Closed by JANNETTE MCLEOD on 02/22/24 Normal [facility] Pathology Request for Lab Co rpon 02-16-2024 Pathology Request for Lab Lilly Normal [facility] Comment on above: Order Comment: PATHO LOGY GI SPECIMEN Result Comment: See report. Scanned copy available in EMR. PERFORMED BY: [facility] [address] [place] [address] PATHOLOGIST DOUBLE CUT SAWYER JACE JOYCE M.D. Performed By: #### P ATH TO [facility] #### [address] Ver[facility]-20[facility] CONI NICHOLSON ([id number]) 1995 F Date Time Provider Department 01/29/24 LOGAN BARTH [facility] During your visit today, we recorded the following information about you: Kelsey Patel 01/29/2024 10:53 AM Signed Name of Caller: nicky Relationship to patient: pharmacy Last visit in this department: 09/19/2023 Reason for Call: Other : need to verify quantity on zolmitriptan. Callback number: [phone] Amy Shrestha MA 01/29/2024 12:06 PM Signed Per last Rx on 11/10/2023: Disp Refills Start End ZOLMitriptan (ZOMIG) 5 mg nasal spray 10 Each 5 11/10/2023 -- Sig: Use 1 [place] in the nose as needed at onset [...] spray 12 Each 5 Sig: Use 1 [place] in the nose as needed at onset [...] Date Reviewed: 01/22/2024 Reviewed by: Raiza Morales APRN.CNP - Fully Assessed Order(s):ZOLMitript an (ZOMIG) 5 mg nasal sprayUse 1 [place] in the nose as needed at onset of migraine headache. If symptoms persist or return, may repeat dose in other nostril after 2 hours. Maximum of 2 sprays per 24 hoursDisp: 12 EachRfl: 5 Prescriptions as of 02/01/2024 - ZOLMitriptan (ZOMIG) 5 mg nasal spray Use 1 [place] in the nose as needed at onset [...] 5 01/30/2024 Route: NASAL Sig: Use 1 [place] in the nose as needed at onset of migraine headache. If symptoms persist or return, may repeat dose in other nostril after 2 hours. Maximum of 2 sprays per 24 hours Medications Discontinued During This Encounter Prescriptions - ZOLMitriptan (ZOMIG) 5 mg nasal spray (Discontinued) Use 1 [place] in the nose as needed at onset of migraine headache. If symptoms persist or return, may repeat dose in other nostril after 2 hours. Maximum of 2 sprays per 24 hours Encounter Status:Closed by KELSEY PATEL on 01/30/24 [facility] CNOVon 01-22-2024 CNOV Office Visit ([facility]) ---- CONI NICHOLSON ([id number]) 1995 F Date Time Provider Department 01/22/24 2:30 PM RAIZA MORALES [facility] During your visit today, we recorded the following information about you: Raiza Morales APRN.PASTRYCOOK 01/22/2024 1:57 PM Signed [facility] Infusion [...] Lymph 1.00 - 4.00 k/uL 0.84 Abs [place] <0.87 k/uL 0.06 Abs Eosin <0.46 k/uL [...] ZOLMitriptan (ZOMIG) 5 mg nasal sprayUse 1 [place] in the nose as needed at onset [...] and clear, coherent, and relevant. 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 Normal [facility] CNOVon 09-19-2023 CNOV Office Visit ([facility]) ---- CONI NICHOLSON ([id number]) 1995 F Date Time Provider Department 09/19/23 2:30 PM LOGAN BARTH [facility] During your visit today, we recorded the [...] XL, Qudexy) Anti-Depressant and Antipsychotic Amitriptyline (Elavil) [place] (Eskalith, Lithobid) Nortriptyline (Pamelor, Aventyl) Anti-Migraine Dihydroergotamine [...] ZOLMitriptan (ZOMIG) 5 mg nasal sprayUse 1 [place] in the nose as needed at onset [...] these with the patient: yes Logan Barth APRN.[facility] HEADACHE SCORES: 03/22/2023 07/10/2023 09/19/2023 Headache Questions ER visits since last office visit: 6 8 6 Hospital stays since last office visit 2 1 Limited ADL (more content not included)... Normal [facility] CNOVon 08-18-2023 CNOV Office Visit ([facility]) ---- GIULIACAROLINACONI L ([id number]) 1995 F Date Time Provider Department 08/18/23 [...] 1 month Curtis Lepe PA-C Headache [facility] August 18, 2023 Curtis Lepe PA-C 08/18/2023 2:39 PM Signed You received a greater occipital nerve block (GONB) today You may feel sore tomorrow at the site of the injection. You may use heat or ice for discomfort and gentle stretching. This should resolve in 24-36 hours. Greater Occipital Nerve Block (GONB) Article in [place] Head[employer] Journal By: Molina Barraza MD Many patients with chronic headache report that their (more content not included)... 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 Suzan Driver APRN.PASTRYCOOK Headache Section [facility] Suzan Driver APRN.FADY 04/14/2023 10:49 AM Signed Follow up/ discharge plan: f/u in 3 months Start aimovig this weekend Aimovig Information Aimovig is a CGRP monoclonal antibody (MAB). CGRP is a substance in the brain that plays a chong role in causing migraine. Aimovig was specifically developed t (more content not included)... Normal [facility] CNPNon [facility]20[facility] GIULIACAROLINACONI Pradeep ([id number]) 1995 F Date Time Provider Department 04/13/23 [facility] During your visit today, we [...] (ZOMIG) 5 mg nasal spray Use 1 [place] in the nose as needed at onset [...] Encounter Status:Closed by JOHANA CANCINO on 04/13/23 [facility] CNOVon 04-12-2023 CNOV Office Visit ([facility]) ---- NICHOLSON,CONI L ([id number]) 1995 F Date Time Provider Department 04/12/23 1:30 PM NEISHA SUZAN [facility] During your visit today, we recorded the following information about you: Suzan Driver APRN.PASTRYCOOK 04/12/2023 11:52 AM Signed General Headache Education [...] much light. These can be obtained at [employer] or [employer]: see list below. 2. Limit use of acute treatments (lghk-lsr-ldswpbn medications, triptans, etc.) to no more than [...] and quiet environment. Relax and reduce stress. Vvxfvbj7Bhogi is a free catrina that can instruct you on some simple relaxtion and breathing techniques. Http://[employer]emids is a free website that provides teaching [...] i (more content not included)... Normal [facility] CNPNon 03-27-2023 [facility] Telephone ([facility]) ---- GIULIACONI Pradeep ([id number]) 1995 F Date Time Provider Department 03/27/23 ANGELY COTTON [facility] During your visit today, we recorded the following information about you: Angely Cotton RN 03/27/2023 1:05 PM Signed [facility] received prescription(s) for Aimovig 70MG/ML auto-injectors . Benefits investigation was conducted, indicating that a prior authorization is required. PA was initiated and pending review through [employer]. All pertinent clinical information was submitted to insurance. [facility] Chong: [id number] Ordering Provider: Logan Barth APRN.Angely Schaefer RN [facility] P: , F: Angely Cotton RN 04/03/2023 12:43 PM Signed Ambulatory Pharmacy Prior Authorization Note Provider Intervention Required?: No- Pharmacy completed on your behalf. Rx Plan: Medicaid [facility] ([facility]) Drug: Aimovig 70MG/ML auto-injectors Cover My Meds Chong: [id number] Determination: Approved Prior Authorization/Case #: n/a Prior [...] refills. Prescriptions will now be processed through [facility] for determination of next steps. For questions relating to this submission, please contact [facility] at [phone] Allergies As of Date: 03/27/2023 Noted Allergy [...] Date Reviewed: 03/23/2023 Reviewed by: Logan Barth APRN.PASTRYCOOK - Fully Assessed Reason for Visit: Insurance Authorization [3603] Cmt: Aimovig 70MG/ML auto-injectors Prescriptions as of 04/03/2023 - Phentermine HCl 37.5 mg tablet take 1 tablet by mouth every morning before meals - erenumab-aooe (AIMOVIG AUTOINJECTOR) 70 mg/mL auto-injector Inject 1 mL subcutaneously once every month. Do not shake. - ZOLMitriptan (ZOMIG) 5 mg nasal spray Use 1 [place] in the nose as needed at onset [...] Status:Closed by ANGELY COTTON on 04/03/23 Normal [facility] BLOOD GASES BTYon 06-20-2022 02 MODE ROOM AIR Normal [facility] Comment on above: Performed By: #### B MP #### [facility] [address] [place] [address] Dr. Ibis Jimenez ALLENS TEST Positive [facility] Comment on above: Performed By: #### B MP #### [facility] [address] [place] [address] Dr. Ibis Jimenez Base excess Calc (Bld) [Moles/Vol] -1.6000 mmol/L Normal -2.0-2.0 [facility] Comment on above: Performed By: #### B MP #### [facility] [address] [place] [address] Dr. Ibis Jimenez BIPAP PRESSURE Normal [facility] Comment on above: Performed By: #### B MP #### [facility] [address] [place] [address] Dr. Ibis Jimenez CPAP [facility] Comment on above: Performed By: #### B MP #### [facility] [address] [place] [address] Dr. Ibis Jimenez FIO2 [facility] Comment on above: Performed By: #### B MP #### [facility] [address] [place] [address] Dr. Ibis Jimenez HCO3 (Bld) [Moles/Vol] 23.8 mmol/L Normal 22.0-26.0 [facility] Comment on above: Performed By: #### B MP #### [facility] [address] [address] [address] Ibis Jimenez LPM [facility] Comment on above: Performed By: #### B MP #### [facility] [address] [place] [address] Dr. Ibis Jimenez MINUTE VOLUME [facility] Comment on above: Performed By: #### B MP #### [facility] [address] [place] [address] Dr. Ibis Jimenez Oxygen (Bld) [Partial pressure] 75.5 mm[Hg] Critically low 80.0-100.0 [facility] Comment on above: Performed By: #### B MP #### [facility] [address] [place] [address] Dr. Ibis Jimenez Oxygen saturation in Blood 95.8 % Normal 95.0-100.0 [facility] Comment on above: Performed By: #### B MP #### [facility] [address] [place] [address] Dr. Ibis Jimenez PCO2 41.8 mmHg Normal 35.0-45.0 [facility] Comment on above: Performed By: #### B MP #### [facility] [address] [place] [address] Dr. Ibis Jimenez PEEP [facility] Comment on above: Performed By: #### B MP #### [facility] [address] [place] [address] Dr. Ibis Jimenez pH (Bld) 7.363 [pH] Normal 7.350-7.450 [facility] Comment on above: Performed By: #### B MP #### [facility] [address] [place] [address] Dr. Ibis Jimenez PIP [facility] Comment on above: Performed By: #### B MP #### [facility] [address] [place] [address] Dr. Ibis Jimenez PS [facility] Comment on above: Performed By: #### B MP #### [facility] [address] [place] [address] Dr. Ibis Jimenez PUNCTURE SITE LR [facility] Comment on above: Performed By: #### B MP #### [facility] [address] [place] [address] Dr. Ibis Jimenez [facility] Comment on above: Performed By: #### B MP #### [facility] [address] [place] [address] Dr. Ibis Jimenez [facility] Comment on above: Performed By: #### B MP #### [facility] [address] [place] [address] Dr. Ibis Jimenez [facility] Comment on above: Performed By: #### B MP #### [facility] [address] [place] [address] Dr. Ibis Jimenez CBC AUTO DIFFon 06-20-2022 BASO # 0.0 103/ul Normal 0.0-0.1 [facility] Comment on above: Performed By: #### A CET SALYC #### [facility] [address] [place] [address] Dr. Ibis Jimenez Basophils/100 WBC (Bld) 0.5 % Normal 0.2-2.0 [facility] Comment on above: Performed By: #### A CET SALYC #### [facility] [address] [place] [address] Dr. Ibis Jimenez EO # 0.3 103/ul Normal 0.0-0.7 [facility] Comment on above: Performed By: #### A CET, SALYC #### [facility] [address] [place] [address] Dr. Ibis Jimenez Eosinophils/100 WBC (Bld) 4.2 % Normal 0.9-7.0 [facility] Comment on above: Performed By: #### A CET, SALYC #### [facility] [address] [place] [address] Dr. Ibis Jimenez Erythrocyte distribution width (RBC) [Ratio] 13.2 % Normal 11.0-15.0 [facility] Comment on above: Performed By: #### A CET, SALYC #### [facility] [address] [place] [address] Dr. Ibis Jimenez Hematocrit (Bld) [Volume fraction] 36.5 % Normal 36.0-48.0 [facility] Comment on above: Performed By: #### A CET, SALYC #### [facility] Laboratory [address] [place] [address] Dr. Ibis Jimenez Hemoglobin (Bld) [Mass/Vol] 11.7 g/dL Critically low 12.0-16.0 [facility] Comment on above: Performed By: #### A CET, SALYC #### [facility] [address] [place] [address] Dr. Ibis Jimenez IG # 0.05 [id number]/[id number] Critically high 0.00-0.03 [facility] Comment on above: Performed By: #### A CET, SALYC #### [facility] [address] [place] [address] Dr. Ibis Jimenez IG % 0.8 % Critically high 0.0-0.5 [facility] Comment on above: Performed By: #### A CET, SALYC #### [facility] [address] [place] [address] Dr. Ibis Jimenez LYMPH # 1.7 103/ul Normal 1.2-3.[address] [facility] Comment on above: Performed By: #### A CET, SALYC #### [facility] [address] [place] [address] Dr. Ibis Jimenez Lymphocytes/100 WBC (Bld) 26.9 % Normal 20.5-60.0 [facility] Comment on above: Performed By: #### A CET, SALYC #### [facility] [address] [place] [address] Dr. Ibis Jimenez MANUAL DIFF REQ NO Normal [facility] Comment on above: Performed By: #### A CET, SALYC #### [facility] [address] [place] [address] Dr. Ibis Jimenez MCH (RBC) [Entitic mass] 28.7 pg Normal 26.7-34.0 [facility] Comment on above: Performed By: #### A CET, SALYC #### [facility] [address] [place] [address] Dr. Ibis Jimenez MCHC (RBC) [Mass/Vol] 32.1 g/dL Normal 29.9-35.[address] [facility] Comment on above: Performed By: #### A CET, SALYC #### [facility] [address] [place] [address] Dr. Ibis Jimenez MCV (RBC) [Entitic vol] 89.7 fL Normal 81.0-99.[address] [facility] Comment on above: Performed By: #### A CET, SALYC #### [facility] [address] [place] [address] Dr. Ibis Jimenez MONO # 0.6 103/ul Normal 0.3-0.[address] [facility] Comment on above: Performed By: #### A CET, SALYC #### [facility] [address] [place] [address] Dr. Ibis Jimenez Monocytes/100 WBC (Bld) 8.9 % Normal 1.7-12.[address] [facility] Comment on above: Performed By: #### A CET, SALYC #### [facility] [address] [place] [address] Dr. Ibis Jimenez NEUT # 3.8 103/ul Normal 1.4-6.5 [facility] Comment on above: Performed By: #### A CET, SALYC #### [facility] [address] [place] [address] Dr. Ibis Jimenez Neutrophils/100 WBC (Bld) 58.7 % Normal 43.0-75.[address] [facility] Comment on above: Performed By: #### A CET, SALYC #### [facility] [address] [place] [address] Dr. Ibis Jimenez Platelet mean volume (Bld) [Entitic vol] 9.3 fL Critically low 9.5-13.[address] [facility] Comment on above: Performed By: #### A CET, SALYC #### [facility] [address] [place] [address] Dr. Ibis Jimenez PLT 188 103/ul Normal 150-[address] [facility] Comment on above: Performed By: #### A CET, SALYC #### [facility] [address] [address] [address] Ibis Jimenez RBC 4.07 106/ul Critically low 4.20-5.40 [facility] Comment on above: Performed By: #### A CET, SALYC #### [facility] [address] [place] [address] Dr. Ibis Jimenez WBC 6.4 103/ul Normal 4.0-11.0 [facility] Comment on above: Performed By: #### A CET, SALYC #### [facility] [address] [address] [address] Ibis Jimenez DRUG SCREEN RAPID (URINE)on 06-20-2022 AMP Negative Normal NEGATIVE [facility] Comment on above: Performed By: #### B MP #### [facility] [address] [place] [address] Dr. Ibis Jimenez BAR Positive Abnormal NEGATIVE [facility] Comment on above: Performed By: #### B MP #### [facility] [address] [place] [address] Dr. Ibis Jimenez BUP Negative Normal NEGATIVE [facility] Comment on above: Performed By: #### B MP #### [facility] [address] [place] [address] Dr. Ibis Jimenez BZO Positive Abnormal NEGATIVE [facility] Comment on above: Performed By: #### B MP #### [facility] [address] [place] [address] Dr. Ibis Jimenez SEMAJ Negative Normal NEGATIVE [facility] Comment on above: Performed By: #### B MP #### [facility] [address] [place] [address] Dr. Ibis Jimenez CUT-OFFS SEE BELOW Normal [...] B MP #### [facility] [address] [place] [address] Dr. Ibis Jimenez DRUG CUT HEADER DRUG CLASS TEST SYSTEM CUT-OFF CONCENTRATIONS ARE FOLLOWS: Normal [facility] Comment on above: Performed By: #### B MP #### [facility] [address] [place] [address] Dr. Ibis Jimenez mAMP Negative Normal NEGATIVE [facility] Comment on above: Performed By: #### B MP #### [facility] [address] [place] [address] Dr. Ibis Jimenez MTD Negative Normal NEGATIVE [facility] Comment on above: Performed By: #### B MP #### [facility] [address] [place] [address] Dr. Ibis Jimenez OPI Negative Normal NEGATIVE [facility] Comment on above: Performed By: #### B MP #### [facility] [address] [place] [address] Dr. Ibis Jimenez OXY Negative Normal NEGATIVE [facility] Comment on above: Performed By: #### B MP #### [facility] [address] [place] [address] Dr. Ibis Jimenez PCP Negative Normal NEGATIVE [facility] Comment on above: Performed By: #### B MP #### [facility] [address] [place] [address] Dr. Ibis Jimenez PPX Negative Normal NEGATIVE [facility] Comment on above: Performed By: #### B MP #### [facility] [address] [place] [address] Dr. Ibis Jimenez TCA Positive Abnormal NEGATIVE [facility] Comment on above: Performed By: #### B MP #### [facility] [address] [place] [address] Dr. Ibis Jimenez THC Positive Abnormal NEGATIVE [facility] Comment on above: Performed By: #### B MP #### [facility] [address] [address] [address] Ibis Jimenez ER URINE PROFILEon 3 Bilirubin Ql (U) Negative Normal NEGATIVE [facility] Comment on above: Performed By: #### A CET, SALYC #### [facility] [address] [place] [address] Dr. Ibis Jimenez Clarity (U) CLEAR Normal CLEAR [facility] Comment on above: Performed By: #### A CET, SALYC #### [facility] [address] [place] [address] Dr. Ibis iJmenez Color (U) YELLOW Normal YELLOW [facility] Comment on above: Performed By: #### A CET, SALYC #### [facility] [address] [place] [address] Dr. Ibis RODRIGUEZ A micrscopic examination will be performed if indicated. Normal [facility] Comment on above: Performed By: #### A CET, SALYC #### [facility] [address] [place] [address] Dr. Ibis Jimenez Glucose Ql (U) Negative Normal NEGATIVE [facility] Comment on above: Performed By: #### A CET, SALYC #### [facility] [address] [place] [address] Dr. Ibis Jimenez Hemoglobin Ql (U) Negative Normal NEGATIVE [facility] Comment on above: Performed By: #### A CET, SALYC #### [facility] [address] [place] [address] Dr. Ibis Jimenez Ketones Ql (U) Negative Normal NEGATIVE [facility] Comment on above: Performed By: #### A CET, SALYC #### [facility] [address] [place] [address] Dr. Ibis Jimenez LEUKOCYTES Negative Normal NEGATIVE [facility] Comment on above: Performed By: #### A CET, SALYC #### [facility] [address] [place] [address] Dr. Ibis Jimenez Nitrite Ql (U) Negative Normal NEGATIVE [facility] Comment on above: Performed By: #### A CET, SALYC #### [facility] [address] [address] [address] Ibis Jimenez pH (U) 5.0 [pH] Normal 5-9 [facility] Comment on above: Performed By: #### A CET, SALYC #### [facility] [address] [address] [address] Ibis Jimenez SPEC GRAVITY >=1.030 Abnormal 1.005-<=1.[address] [place] [address] Comment on above: Performed By: #### A CET, SALYC #### [facility] [address] [place] [address] Dr. Ibis Jimenez UA PROTEIN Negative Normal NEGATIVE/ TRACE [facility] Comment on above: Performed By: #### A CET, SALYC #### [facility] [address] [place] [address] Dr. Ibis Jimenez UR MICRO IND NOT INDICATED Normal [facility] Comment on above: Performed By: #### A CET, SALYC #### [facility] [address] [place] [address] Dr. Ibis Jimenez Urobilinogen Qn (U) 0.2 {Dinorah'U}/dL Normal 0.2 - 1. 0 [facility] Comment on above: Performed By: #### A CET, SALYC #### [facility] [address] [place] [address] Dr. Ibis Jimenez PROF CHEM 8 (BAS METB)on Anion gap [Moles/Vol] 13.1 mmol/L Normal [facility] Comment on above: Performed By: #### M DAVID #### [facility] [address] [place] [address] Dr. Ibis Jimenez Calcium [Mass/Vol] 8.3 mg/dL Critically low 8.5-10.1 [facility] Comment on above: Performed By: #### M DAVID #### [facility] [address] [place] [address] Dr. Ibis Jimenez Chloride [Moles/Vol] 109 mmol/L Critically high 98-107 [facility] Comment on above: Performed By: #### M DAVID #### [facility] [address] [address] [address] Ibis Jimenez CO2 [Moles/Vol] 25.7 mmol/L Normal 21.0-32.0 [facility] Comment on above: Performed By: #### M DAVID #### [facility] [address] [address] [address] Ibis Jimenez Creatinine [Mass/Vol] 0.82 mg/dL Normal 0.55-1.02 [facility] Comment on above: Performed By: #### M DAVID #### [facility] [address] [address] [address] Ibis Jimenez EGFR-AF [facility] >60 Normal >=60 [facility] Comment on above: Performed By: #### M DAVID #### [facility] [address] [address] [address] Ibis Jimenez EGFR-NON AF [facility] >60 Normal >=60 [facility] Comment on above: Performed By: #### M DAVID #### [facility] [address] [address] [address] Ibis Jimenez Glucose [Mass/Vol] 95 mg/dL Normal 74-106 [facility] Comment on above: Performed By: #### M DAVID #### [facility] [address] [address] [address] Ibis Jimenez Potassium [Moles/Vol] 3.8 mmol/L Normal 3.5-5.[address] [facility] Comment on above: Performed By: #### M DAVID #### [facility] [address] [address] [address] Ibis Jimenez Sodium [Moles/Vol] 144 mmol/L Normal 136-145 [facility] Comment on above: Performed By: #### M DAVID #### [facility] [address] [address] [address] Ibis Jimenez Urea nitrogen [Mass/Vol] 16.0 mg/dL Normal 7.0-18.0 [facility] Comment on above: Performed By: #### M DAVID #### [facility] [address] [address] [address] Ibis Jimenez Urea nitrogen/Creatinine [Mass ratio] 19.5 mg/mg Normal [facility] Comment on above: Performed By: #### M DAVID #### [facility] [address] [address] [address] Ibis Jimenez ACETAMINOPHENon 06-19-2022 Acetaminophen [Mass/Vol] ug/mL Critically low 10.0-30.0 [facility] Comment on above: Performed By: #### A CET, SALYC #### [facility] [address] [address] [address] Ibis Jimenez DRUG SCREEN RAPID (URINE)on 06-19-2022 AMP Negative Normal NEGATIVE [facility] Comment on above: Performed By: #### M DAVID #### [facility] [address] [address] [address] Ibis Jimenez BAR Positive Abnormal NEGATIVE [facility] Comment on above: Performed By: #### M DAVID #### [facility] [address] [address] [address] Ibis Jimenez BUP Negative Normal NEGATIVE [facility] Comment on above: Performed By: #### M DAVID #### [facility] [address] [address] [address] Ibis Jimenez BZO Positive Abnormal NEGATIVE [facility] Comment on above: Performed By: #### M DAVID #### [facility] [address] [address] [address] Ibis Jimenez SEMAJ Negative Normal NEGATIVE [facility] Comment on above: Performed By: #### M DAVID #### [facility] [address] [address] [address] Ibis Jimenez CUT-OFFS SEE BELOW Normal [facility] Comment on above: Result Comment: AMP (Amphetamine): [...] M DAVID #### [facility] [address] [place] [address] Dr. Ibis Jimenez DRUG CUT HEADER DRUG CLASS TEST SYSTEM CUT-OFF CONCENTRATIONS ARE FOLLOWS: Normal [facility] Comment on above: Performed By: #### M DAVID #### [facility] [address] [place] [address] Dr. Ibis Jimenez mAMP Negative Normal NEGATIVE [facility] Comment on above: Performed By: #### M DAVID #### [facility] [address] [place] [address] Dr. Ibis Jimenez MTD Negative Normal NEGATIVE [facility] Comment on above: Performed By: #### M DAVID #### [facility] [address] [place] [address] Dr. Ibis Jimenez OPI Positive Abnormal NEGATIVE [facility] Comment on above: Performed By: #### M DAVID #### [facility] [address] [place] [address] Dr. Ibis Jimenez OXY Negative Normal NEGATIVE [facility] Comment on above: Performed By: #### M DAVID #### [facility] [address] [place] [address] Dr. Ibis Jimenez PCP Negative Normal NEGATIVE [facility] Comment on above: Performed By: #### M DAVID #### [facility] [address] [place] [address] Dr. Ibis Jimenez PPX Negative Normal NEGATIVE [facility] Comment on above: Performed By: #### M DAVID #### [facility] [address] [place] [address] Dr. Ibis Jimenez TCA Negative Normal NEGATIVE [facility] Comment on above: Performed By: #### M DAVID #### [facility] [address] [address] [address] Ibis Jimenez THC Positive Abnormal NEGATIVE [facility] Comment on above: Performed By: #### M DAVID #### [facility] [address] [address] [address] Ibis Jimenez ER URINE PROFILEon 3 Bilirubin Ql (U) Negative Normal NEGATIVE [facility] Comment on above: Performed By: #### M DAVID #### [facility] [address] [address] [address] Ibis Jimenez Clarity (U) CLEAR Normal CLEAR [facility] Comment on above: Performed By: #### M DAVID #### [facility] [address] [place] [address] Dr. Ibis Jimenez Color (U) YELLOW Normal YELLOW [facility] Comment on above: Performed By: #### M DAVID #### [facility] [address] [place] [address] Dr. Ibis Jimenez ERUAHD A micrscopic examination will be performed if indicated. Normal [facility] Comment on above: Performed By: #### M DAVID #### [facility] [address] [place] [address] Dr. Ibis Jimenez Glucose Ql (U) Negative Normal NEGATIVE [facility] Comment on above: Performed By: #### M DAVID #### [facility] [address] [place] [address] Dr. Ibis Jimenez Hemoglobin Ql (U) TRACE-INTACT Abnormal NEGATIVE [facility] Comment on above: Performed By: #### M DAVID #### [facility] [address] [place] [address] Dr. Ibis Jimenez Ketones Ql (U) Negative Normal NEGATIVE [facility] Comment on above: Performed By: #### M DAVID #### [facility] [address] [place] [address] Dr. Ibis Jimenez LEUKOCYTES Negative Normal NEGATIVE [facility] Comment on above: Performed By: #### M DAVID #### [facility] [address] [address] [address] Ibis Jimenez Nitrite Ql (U) Negative Normal NEGATIVE [facility] Comment on above: Performed By: #### M DAVID #### [facility] [address] [place] [address] Dr. Ibis Jimenez pH (U) 6.0 [pH] Normal 5-9 [facility] Comment on above: Performed By: #### M DAVID #### [facility] [address] [place] [address] Dr. Ibis Jimenez Protein (U) [Mass/Vol] 30 mg/dL Abnormal NEGAT ADALGISA/ TRACE [facility] Comment on above: Performed By: #### M DAVID #### [facility] [address] [place] [address] Dr. Ibis Jimenez SPEC GRAVITY 1.025 Normal 1.005-<=1.02 5 [facility] Comment on above: Performed By: #### M DAVID #### [facility] [address] [place] [address] Dr. Ibis Jimenez UR MICRO IND INDICATED Normal [facility] Comment on above: Performed By: #### M DAVID #### [facility] [address] [place] [address] Dr. Ibis Jimenez Urobilinogen Qn (U) 0.2 {Dinorah'U}/dL Normal 0.2 - 1. 0 [facility] Comment on above: Performed By: #### M DAVID #### [facility] [address] [place] [address] Dr. Ibis Jimenez ETHANOL (BLD ALC)on 06-20-19 ALC NOTE NOTE: 80 mg/dl is the legal limit for a blood alcohol level Normal [facility] Comment on above: Performed By: #### A MM #### [facility] [address] [place] [address] Dr. Ibis Jimenez Ethanol [Mass/Vol] mg/dL Normal [facility] Comment on above: Performed By: #### A MM #### [facility] [address] [place] [address] Dr. Ibis Jimenez POINT OF CARE GLUCOSEon 05-23 Glucose [Mass/Vol] 88 mg/dL Normal 74-106 [facility] Comment on above: Performed By: #### C VDTB #### [facility] [address] [place] [address] Dr. Ibis Jimenez URon 06-19-2022 , QUAL Negative Normal NEGATIVE [facility] Comment on above: Performed By: #### M DAVID #### [facility] [address] [address] [address] Ibis Jimenez PROF CHEM 8 (BAS METB)on Anion gap [Moles/Vol] 12.6 mmol/L Normal [facility] Comment on above: Performed By: #### A MM #### [facility] [address] [place] [address] Dr. Ibis Jimenez Calcium [Mass/Vol] 8.4 mg/dL Critically low 8.5-10.1 [facility] Comment on above: Performed By: #### A MM #### [facility] [address] [place] [address] Dr. Ibis Jimenez Chloride [Moles/Vol] 107 mmol/L Normal 98-107 [facility] Comment on above: Performed By: #### A MM #### [facility] [address] [place] [address] Dr. Ibis Jimenez CO2 [Moles/Vol] 22.5 mmol/L Normal 21.0-32.0 [facility] Comment on above: Performed By: #### A MM #### [facility] [address] [place] [address] Dr. Ibis Jimenez Creatinine [Mass/Vol] 0.82 mg/dL Normal 0.55-1.02 [facility] Comment on above: Performed By: #### A MM #### [facility] [address] [place] [address] Dr. Ibis Jimenez EGFR-AF [facility] >60 Normal >=60 [facility] Comment on above: Performed By: #### A MM #### [facility] [address] [place] [address] Dr. Ibis Jimenez EGFR-NON AF [facility] >60 Normal >=60 [facility] Comment on above: Performed By: #### A MM #### [facility] [address] [address] [address] Ibis Jimenez Glucose [Mass/Vol] 87 mg/dL Normal 74-106 [facility] Comment on above: Performed By: #### A MM #### [facility] [address] [address] [address] Ibis Jimenez Potassium [Moles/Vol] 4.1 mmol/L Normal 3.5-5.1 [facility] Comment on above: Performed By: #### A MM #### [facility] [address] [address] [address] Ibis Jimenez Sodium [Moles/Vol] 138 mmol/L Normal 136-145 [facility] Comment on above: Performed By: #### A MM #### [facility] [address] [address] [address] Ibis Jimenez Urea nitrogen [Mass/Vol] 22.0 mg/dL Critically high 7.0-18.0 [facility] Comment on above: Performed By: #### A MM #### [facility] [address] [place] [address] Dr. Ibis Jimenez Urea nitrogen/Creatinine [Mass ratio] 26.8 mg/mg Normal [facility] Comment on above: Performed By: #### A MM #### [facility] [address] [address] [address] Ibis Jimenez SALICYLATEon 06-19-2022 SALICYLATE <2.8 Normal <=19.9 [facility] Comment on above: Performed By: #### A CET, SALYC #### [facility] [address] [address] [address] Ibis Jimenez URINE MICROSCOPIC ONLYon BACTERIA NONE SEEN Normal NONE SEEN [facility] Comment on above: Performed By: #### M DAVID #### [facility] [address] [address] [address] Ibis Jimenez Bacteria identified Cx Nom (U) NOT INDICATED Normal [facility] Comment on above: Performed By: #### M DAVID #### [facility] [address] [address] [address] Ibis Jimenez CAST SEEN Abnormal NONE SEEN [facility] Comment on above: Performed By: #### M DAVID #### [facility] [address] [place] [address] Dr. Ibis Jimenez Crystals LM Nom (Urine sed) NONE SEEN Normal NONE SEEN [facility] Comment on above: Performed By: #### M DAVID #### [facility] [address] [place] [address] Dr. Ibis Jimenez Epithelial cells LM Ql (Urine sed) MODERATE Abnormal NONE SEEN /RARE [facility] Comment on above: Performed By: #### M DAVID #### [facility] [address] [place] [address] Dr. Ibis Jimenez HYALINE CAST FEW Normal [facility] Comment on above: Performed By: #### M DAVID #### [facility] [address] [place] [address] Dr. Ibis Jimenez MUCOUS NONE SEEN Normal NONE SEEN [facility] Comment on above: Performed By: #### M DAVID #### [facility] [address] [place] [address] Dr. Ibis Jimenez RBC 2-5 Abnormal 0-2 [facility] Comment on above: Performed By: #### M DAVID #### [facility] [address] [place] [address] Dr. Ibis Jimenez WBC NONE SEEN Normal NONE SEEN [facility] Comment on above: Performed By: #### M DAVID #### [facility] [address] [place] [address] Dr. Ibis Jimenez CBC AUTO DIFFon 06-11-2022 BASO # 0.0 103/ul Normal 0.0-0.1 [facility] Comment on above: Performed By: #### C VDTBH #### [facility] [address] [place] [address] Dr. Ibis Jimenez Basophils/100 WBC (Bld) 0.3 % Normal 0.2-2.0 [facility] Comment on above: Performed By: #### C VDTBH #### [facility] [address] [address] [address] Ibis Jimenez EO # 0.0 103/ul Normal 0.0-0.7 [facility] Comment on above: Performed By: #### C VDTBH #### [facility] [address] [place] [address] Dr. Ibis Jimenez Eosinophils/100 WBC (Bld) 0.1 % Critically low 0.9-7.0 [facility] Comment on above: Performed By: #### C VDTBH #### [facility] [address] [place] [address] Dr. Ibis Jimenez Erythrocyte distribution width (RBC) [Ratio] 13.2 % Normal 11.0-15.0 [facility] Comment on above: Performed By: #### C VDTBH #### [facility] [address] [place] [address] Dr. Ibis Jimenez Hematocrit (Bld) [Volume fraction] 38.5 % Normal 36.0-48.0 [facility] Comment on above: Performed By: #### C VDTBH #### [facility] [address] [place] [address] Dr. Ibis Jimenez Hemoglobin (Bld) [Mass/Vol] 12.4 g/dL Normal 12.0-16.0 [facility] Comment on above: Performed By: #### C VDTBH #### [facility] [address] [place] [address] Dr. Ibis Jimenez IG # 0.20 10e3/ul Critically high 0.00-0.03 [facility] Comment on above: Performed By: #### C VDTBH #### [facility] [address] [place] [address] Dr. Ibis Jimenez IG % 1.8 % Critically high 0.0-0.5 [facility] Comment on above: Performed By: #### C VDTBH #### [facility] [address] [place] [address] Dr. Ibis Jimenez LYMPH # 0.5 103/ul Critically low 1.2-3.8 [facility] Comment on above: Performed By: #### C VDTBH #### [facility] [address] [place] [address] Dr. Ibis Jimenez Lymphocytes/100 WBC (Bld) 4.6 % Critically low 20.5-60.0 [facility] Comment on above: Performed By: #### C VDTBH #### [facility] [address] [place] [address] Dr. Ibis Jimenez MANUAL DIFF REQ NO Normal [facility] Comment on above: Performed By: #### C VDTBH #### [facility] [address] [place] [address] Dr. Ibis Jimenez MCH (RBC) [Entitic mass] 28.2 pg Normal 26.7-34.0 [facility] Comment on above: Performed By: #### C VDTBH #### [facility] [address] [place] [address] Dr. Ibis Jimenez MCHC (RBC) [Mass/Vol] 32.2 g/dL Normal 29.9-35.2 [facility] Comment on above: Performed By: #### C VDTBH #### [facility] [address] [place] [address] Dr. Ibis Jimenez MCV (RBC) [Entitic vol] 87.5 fL Normal 81.0-99.0 [facility] Comment on above: Performed By: #### C VDTBH #### [facility] [address] [place] [address] Dr. Ibis Jimenez MONO # 0.1 103/ul Critically low 0.3-0.8 [facility] Comment on above: Performed By: #### C VDTBH #### [facility] [address] [place] [address] Dr. Ibis Jimenez Monocytes/100 WBC (Bld) 1.3 % Critically low 1.7-12.0 [facility] Comment on above: Performed By: #### C VDTBH #### [facility] [address] [place] [address] Dr. Ibis Jimenez NEUT # 10.1 103/ul Critically high 1.4-6.5 [facility] Comment on above: Performed By: #### C VDTBH #### [facility] [address] [place] [address] Dr. Ibis Jimenez Neutrophils/100 WBC (Bld) 91.9 % Critically high 43.0-75.0 [facility] Comment on above: Performed By: #### C VDTBH #### [facility] [address] [place] [address] Dr. Ibis Jimenez Platelet mean volume (Bld) [Entitic vol] 9.1 fL Critically low 9.5-13.5 [facility] Comment on above: Performed By: #### C VDTBH #### [facility] [address] [place] [address] Dr. Ibis Jimenez PLT 240 103/ul Normal 150-450 [facility] Comment on above: Performed By: #### C VDTBH #### [facility] [address] [place] [address] Dr. Ibis Jimenez RBC 4.40 106/ul Normal 4.20-5.40 [facility] Comment on above: Performed By: #### C VDTBH #### [facility] [address] [place] [address] Dr. Ibis Jimenez WBC 11.0 103/ul Normal 4.0-11.0 [facility] Comment on above: Performed By: #### C VDTBH #### [facility] [address] [place] [address] Dr. Ibis Jimenez PROF 14(COMP METB)on 023 Albumin [Mass/Vol] 3.3 g/dL Critically low 3.4-5.0 [facility] Comment on above: Performed By: #### B MP #### [facility] [address] [place] [address] Dr. Ibis Jimenez Albumin/Globulin [Mass ratio] 0.9 {ratio} Normal [facility] Comment on above: Performed By: #### B MP #### [facility] [address] [place] [address] Dr. Ibis Jimenez ALP [Catalytic activity/Vol] 63 U/L Normal 46-116 [facility] Comment on above: Performed By: #### B MP #### [facility] [address] [address] [address] Ibis Jimenez ALT [Catalytic activity/Vol] 32 U/L Normal 14-59 [facility] Comment on above: Performed By: #### B MP #### [facility] [address] [address] [address] Ibis Jimenez Anion gap [Moles/Vol] 12.9 mmol/L Normal Th [facility] Comment on above: Performed By: #### B MP #### [facility] [address] [address] [address] Ibis Jimenez AST [Catalytic activity/Vol] 14 U/L Critically low 15-37 [facility] Comment on above: Performed By: #### B MP #### [facility] [address] [address] [address] Ibis Jimenez Bilirubin [Mass/Vol] 0.2 mg/dL Normal 0.2-1.0 [facility] Comment on above: Performed By: #### B MP #### [facility] [address] [place] [address] Dr. Ibis Jimenez Calcium [Mass/Vol] 8.5 mg/dL Normal 8.5-10.1 [facility] Comment on above: Performed By: #### B MP #### [facility] [address] [address] [address] Ibis Jimenez Chloride [Moles/Vol] 106 mmol/L Normal 98-107 [facility] Comment on above: Performed By: #### B MP #### [facility] [address] [address] [address] Ibis Jimenez CO2 [Moles/Vol] 26.6 mmol/L Normal 21.0-32.0 [facility] Comment on above: Performed By: #### B MP #### [facility] [address] [address] [address] Ibis Jimenez Creatinine [Mass/Vol] 0.89 mg/dL Normal 0.55-1.02 [facility] Comment on above: Performed By: #### B MP #### [facility] [address] [address] [address] Ibis Jimenez EGFR-AF [facility]CI[facility] >60 Normal >=60 [facility] Comment on above: Performed By: #### B MP #### [facility] [address] [address] [address] Ibis Jimenez EGFR-NON AF [facility] >60 Normal >=60 [facility] Comment on above: Performed By: #### B MP #### [facility] [address] [address] [address] Ibis Jimenez Globulin (S) [Mass/Vol] 3.6 g/dL Normal [facility] Comment on above: Performed By: #### B MP #### [facility] [address] [place] [address] Dr. Ibis Jimenez Glucose [Mass/Vol] 134 mg/dL Critically high 74-106 [facility] Comment on above: Performed By: #### B MP #### [facility] [address] [address] [address] Ibis Jimenez Potassium [Moles/Vol] 4.5 mmol/L Normal 3.5-5.1 [facility] Comment on above: Performed By: #### B MP #### [facility] [address] [place] [address] Dr. Ibis Jimenez Protein [Mass/Vol] 6.9 g/dL Normal 6.4-8.2 [facility] Comment on above: Performed By: #### B MP #### [facility] [address] [address] [address] Ibis Jimenez Sodium [Moles/Vol] 141 mmol/L Normal 136-145 [facility] Comment on above: Performed By: #### B MP #### [facility] [address] [address] [address] Ibis Jimenez Urea nitrogen [Mass/Vol] 15.0 mg/dL Normal 7.0-18.0 [facility] Comment on above: Performed By: #### B MP #### [facility] [address] [place], [place] [address] Dr. Ibis Jimenez Urea nitrogen/Creatinine [Mass ratio] 16.9 mg/mg Normal [facility] Comment on above: Performed By: #### B MP #### [facility] [address] [place], [place] [address] HEAD WO CONon [...] by: NICHOLAS MARCUS Date: 2022-05-23 19:25 Normal [facility] CONon [address] [facility] CT CERVICAL SPINE WITHOUT CONTRAST. [...] for this test is supported by the [place] of Health and Human Service's declaration that [...] C VDTB #### [facility] [address] [place] [address] Dr. Ibis Jimenez ER URINE PROFILEon 3 Bilirubin Ql (U) Negative Normal NEGATIVE [facility] Comment on above: Performed By: #### A CET, SALYC #### [facility] [address] [place] [address] Dr. Ibis Jimenez Clarity (U) CLEAR Normal CLEAR [facility] Comment on above: Performed By: #### A CET, SALYC #### [facility] [address] [place] [address] Dr. Ibis Jimenez Color (U) YELLOW Normal YELLOW [facility] Comment on above: Performed By: #### A CET, SALYC #### [facility] [address] [place] [address] Dr. Ibis Jimenez ERUAHD A micrscopic examination will be performed if indicated. Normal [facility] Comment on above: Performed By: #### A CET, SALYC #### [facility] [address] [place] [address] Dr. Ibis Jimenez Glucose Ql (U) Negative Normal NEGATIVE [facility] Comment on above: Performed By: #### A CET, SALYC #### [facility] [address] [place] [address] Dr. Ibis Jimenez Hemoglobin Ql (U) SMALL Abnormal NEGATIVE [facility] Comment on above: Performed By: #### A CET, SALYC #### [facility] [address] [place] [address] Dr. Ibis Jimenez Ketones Ql (U) Negative Normal NEGATIVE [facility] Comment on above: Performed By: #### A CET, SALYC #### [facility] [address] [place] [address] Dr. Ibis Jimenez LEUKOCYTES Negative Normal NEGATIVE [facility] Comment on above: Performed By: #### A CET, SALYC #### [facility] [address] [place] [address] Dr. Ibis Jimenez Nitrite Ql (U) Negative Normal NEGATIVE [facility] Comment on above: Performed By: #### A CET, SALYC #### [facility] [address] [place] [address] Dr. Ibis Jimenez pH (U) 5.5 [pH] Normal 5-9 [facility] Comment on above: Performed By: #### A CET, SALYC #### [facility] [address] [place] [address] Dr. Ibis Jimenez SPEC GRAVITY >=1.030 Abnormal 1.005-<=1.02 5 [facility] Comment on above: Performed By: #### A CET, SALYC #### [facility] [address] [place] [address] Dr. Ibis Jimenez UA PROTEIN Negative Normal NEGATIVE/ TRACE [facility] Comment on above: Performed By: #### A CET, SALYC #### [facility] [address] [place] [address] Dr. Ibis Jimenez UR MICRO IND INDICATED Normal [facility] Comment on above: Performed By: #### A CET, SALYC #### [facility] [address] [place] [address] Dr. Ibis Jimenez Urobilinogen Qn (U) 0.2 {Dinorah'U}/dL Normal 0.2 - 1. 0 [facility] Comment on above: Performed By: #### A CET, SALYC #### [facility] [address] [place] [address] Dr. Ibis Jimenez INFLUENZA A AND B AGon 04-01 INFLUANEGH SEE BELOW Normal [facility] Comment on above: Result Comment: Nega tive for Flu A protein angiten. Infection due to Flu A cannot be ruled out. Flu A angiten in the sample may be below the detection limit of the test. Performed By: #### A MM #### [facility] [address] [place] [address] Dr. Ibis Jimenez INFL[facility]AN [facility] SEE BELOW Normal [facility] Comment on above: Result Comment: Nega tive for Flu B protein antigen. Infection due to Flu B cannot be ruled out. Flu B antigen in the sample may be below the detection limit of the test. Performed By: #### A MM #### [facility] [address] [place] [address] Dr. Ibis Jimenez INFLUENZA A AG Negative Normal NEGATIVE SEE COMMENT [facility] Comment on above: Performed By: #### A MM #### [facility] [address] [place] [address] Dr. Ibis Jimenez INFLUENZA B AG Negative Normal NEGATIVE SEE COMMENT [facility] Comment on above: Performed By: #### A MM #### [facility] [address] [place] [address] Dr. Ibis Jimenez LACTATE/LACTIC ACIDon 2022 Lactate [Moles/Vol] 1.9 mmol/L Normal 0.4-1.9 [facility] Comment on above: Performed By: #### L ACT #### [facility] [address] [place] [address] Dr. Ibis Jimenez URINE MICROSCOPIC ONLYon BACTERIA TRACE Abnormal NONE SEEN [facility] Comment on above: Performed By: #### A CET, SALYC #### [facility] [address] [place] [address] Dr. Ibis Jimenez Bacteria identified Cx Nom (U) NOT INDICATED Normal [facility] Comment on above: Performed By: #### A CET, SALYC #### [facility] [address] [place] [address] Dr. Ibis Jimenez CAST NONE SEEN Normal NONE SEEN [facility] Comment on above: Performed By: #### A CET, SALYC #### [facility] [address] [place] [address] Dr. Ibis Jimenez Crystals LM Nom (Urine sed) NONE SEEN Normal NONE SEEN [facility] Comment on above: Performed By: #### A CET, SALYC #### [facility] [address] [place] [address] Dr. Ibis Jimenez Epithelial cells LM Ql (Urine sed) RARE Normal NONE SEEN /RARE [facility] Comment on above: Performed By: #### A CET, SALYC #### [facility] [address] [place] [address] Dr. Ibis Jimenez MUCOUS TRACE Abnormal NONE SEEN [facility] Comment on above: Performed By: #### A CET, SALYC #### [facility] [address] [place] [address] Dr. Ibis Jimenez RBC 0-2 Normal 0-2 [facility] Comment on above: Performed By: #### A CET, SALYC #### [facility] [address] [place] [address] Dr. Ibis Jimenez WBC NONE SEEN Normal NONE SEEN [facility] Comment on above: Performed By: #### A CET, SALYC #### [facility] [address] [place] [address] Dr. Ibis Jimenez AMMONIAon 03-31-2022 Ammonia (P) [Moles/Vol] 31 umol/L Normal 11-32 [facility] Comment on above: Performed By: #### A MM #### [facility] [address] [place] [address] Dr. Ibis Jimenez CBC AUTO DIFFon 03-31-2022 BASO # 0.0 103/ul Normal 0.0-0.1 [facility] Comment on above: Performed By: #### A MM #### [facility] [address] [place] [address] Dr. Ibis Jimenez Basophils/100 WBC (Bld) 0.4 % Normal 0.2-2.0 [facility] Comment on above: Performed By: #### A MM #### [facility] [address] [place] [address] Dr. Ibis Jimenez EO # 0.5 103/ul Normal 0.0-0.7 [facility] Comment on above: Performed By: #### A MM #### [facility] [address] [place] [address] Dr. Ibis Jimenez Eosinophils/100 WBC (Bld) 6.4 % Normal 0.9-7.0 [facility] Comment on above: Performed By: #### A MM #### [facility] [address] [place] [address] Dr. Ibis Jimenez Erythrocyte distribution width (RBC) [Ratio] 12.8 % Normal 11.0-15.0 [facility] Comment on above: Performed By: #### A MM #### [facility] [address] [place] [address] Dr. Ibis Jimenez Hematocrit (Bld) [Volume fraction] 36.6 % Normal 36.0-48.0 [facility] Comment on above: Performed By: #### A MM #### [facility] [address] [place] [address] Dr. Ibis Jimenez Hemoglobin (Bld) [Mass/Vol] 12.5 g/dL Normal 12.0-16.0 [facility] Comment on above: Performed By: #### A MM #### [facility] [address] [place] [address] Dr. Ibis Jimenez IG # 0.02 10e3/ul Normal 0.00-0.03 [facility] Comment on above: Performed By: #### A MM #### [facility] [address] [place] [address] Dr. Ibis Jimenez IG % 0.3 % Normal 0.0-0.5 [facility] Comment on above: Performed By: #### A MM #### [facility] [address] [place] [address] Dr. Ibis Jimenez LYMPH # 2.0 103/ul Normal 1.2-3.8 [facility] Comment on above: Performed By: #### A MM #### [facility] [address] [place] [address] Dr. Ibis Jimenez Lymphocytes/100 WBC (Bld) 25.0 % Normal 20.5-60.0 [facility] Comment on above: Performed By: #### A MM #### [facility] [address] [place] [address] Dr. Ibis Jimenez MANUAL DIFF REQ NO Normal [facility] Comment on above: Performed By: #### A MM #### [facility] [address] [address] [address] Ibis Jimenez MCH (RBC) [Entitic mass] 29.5 pg Normal 26.7-34.0 [facility] Comment on above: Performed By: #### A MM #### [facility] [address] [place] [address] Dr. Ibis Jimenez MCHC (RBC) [Mass/Vol] 34.2 g/dL Normal 29.9-35.[address] [facility] Comment on above: Performed By: #### A MM #### [facility] [address] [place] [address] Dr. Ibis Jimenez MCV (RBC) [Entitic vol] 86.3 fL Normal 81.0-99.0 [facility] Comment on above: Performed By: #### A MM #### [facility] [address] [place] [address] Dr. Ibis Jimenez MONO # 0.4 103/ul Normal 0.3-0.[address] [facility] Comment on above: Performed By: #### A MM #### [facility] [address] [place] [address] Dr. Ibis Jimenez Monocytes/100 WBC (Bld) 5.6 % Normal 1.7-12.0 [facility] Comment on above: Performed By: #### A MM #### [facility] [address] [place] [address] Dr. Ibis Jimenez NEUT # 4.9 103/ul Normal 1.4-6.[address] [facility] Comment on above: Performed By: #### A MM #### [facility] [address] [place] [address] Dr. Ibis Jimenez Neutrophils/100 WBC (Bld) 62.3 % Normal 43.0-75.[address] [facility] Comment on above: Performed By: #### A MM #### [facility] [address] [place] [address] Dr. Ibis Jimenez Platelet mean volume (Bld) [Entitic vol] 9.5 fL Normal 9.5-13.[address] [facility] Comment on above: Performed By: #### A MM #### [facility] [address] [place] [address] Dr. Ibis Jimenez PLT 246 103/ul Normal 150-450 [facility] Comment on above: Performed By: #### A MM #### [facility] [address] [place] [address] Dr. Ibis Jimenez RBC 4.24 106/ul Normal 4.20-5.40 [facility] Comment on above: Performed By: #### A MM #### [facility] [address] [place] [address] Dr. Ibis Jimenez WBC 7.8 103/ul Normal 4.0-11.0 [facility] Comment on above: Performed By: #### A MM #### [facility] [address] [place] [address] Dr. Ibis Jimenez CULTURE BLOODon 03-31-2022 Microscopic examination of blood, culture Culture Observations: NO GROWTH AT 5 DAYS. Normal [facility] Comment on above: Performed By: #### B [id number] #### [facility] [address] [place] [address] Dr. Ibis Jimenez Microscopic examination of blood, culture Culture Observations: NO GROWTH AT 5 DAYS. Normal [facility] Comment on above: Performed By: #### B MP #### [facility] [address] [place] [address] Dr. Ibis Jimenez LACTATE/LACTIC ACIDon 2022 Lactate [Moles/Vol] 2.8 mmol/L Critically high 0.4-1.9 [facility] Comment on above: Performed By: #### C VDTBH #### [facility] [address] [place] [address] Dr. Ibis Jimenez PROF 14(COMP METB)on 023 Albumin [Mass/Vol] 3.4 g/dL Normal 3.4-5.0 [facility] Comment on above: Performed By: #### B MP #### [facility] [address] [place] [address] Dr. Ibis Jimenez Albumin/Globulin [Mass ratio] 1.2 {ratio} Normal [facility] Comment on above: Performed By: #### B MP #### [facility] [address] [address] [address] Ibis Jimenez ALP [Catalytic activity/Vol] 85 U/L Normal 46-116 [facility] Comment on above: Performed By: #### B MP #### [facility] [address] [address] [address] Ibis Jimenez ALT [Catalytic activity/Vol] 18 U/L Normal 14-59 [facility] Comment on above: Performed By: #### B MP #### [facility] [address] [address] [address] Ibis Jimenez Anion gap [Moles/Vol] 13.2 mmol/L Normal [facility] Comment on above: Performed By: #### B MP #### [facility] [address] [address] [address] Ibis Jimenez AST [Catalytic activity/Vol] 11 U/L Critically low 15-37 [facility] Comment on above: Performed By: #### B MP #### [facility] [address] [address] [address] Ibis Jimenez Bilirubin [Mass/Vol] 0.2 mg/dL Normal 0.2-1.0 [facility] Comment on above: Performed By: #### B MP #### [facility] [address] [address] [address] Ibis Jimenez Calcium [Mass/Vol] 8.6 mg/dL Normal 8.5-10.1 [facility] Comment on above: Performed By: #### B MP #### [facility] [address] [address] [address] Ibis Jimenez Chloride [Moles/Vol] 105 mmol/L Normal 98-107 [facility] Comment on above: Performed By: #### B MP #### [facility] [address] [address] [address] Ibis Jimenez CO2 [Moles/Vol] 25.1 mmol/L Normal 21.0-32.0 [facility] Comment on above: Performed By: #### B MP #### [facility] [address] [address] [address] Ibis Jimenez Creatinine [Mass/Vol] 0.80 mg/dL Normal 0.55-1.02 [facility] Comment on above: Performed By: #### B MP #### [facility] [address] [address] [address] Ibis Jimenez EGFR-AF [facility] LUCIAN >60 Normal >=60 [facility] Comment on above: Performed By: #### B MP #### [facility] [address] [address] [address] Ibis Jimenez EGFR-NON AF [facility] >60 Normal >=60 [facility] Comment on above: Performed By: #### B MP #### [facility] [address] [place] [address] Dr. Ibis Jimenez Globulin (S) [Mass/Vol] 2.9 g/dL Normal [facility] Comment on above: Performed By: #### B MP #### [facility] [address] [address] [address] Ibis Jimenez Glucose [Mass/Vol] 99 mg/dL Normal 74-106 [facility] Comment on above: Performed By: #### B MP #### [facility] [address] [place] [address] Dr. Ibis Jimenez Potassium [Moles/Vol] 3.3 mmol/L Critically low 3.5-5.1 [facility] Comment on above: Performed By: #### B MP #### [facility] [address] [place] [address] Dr. Ibis Jimenez Protein [Mass/Vol] 6.3 g/dL Critically low 6.4-8.2 [facility] Comment on above: Performed By: #### B MP #### [facility] [address] [place] [address] Dr. Ibis Jimenez Sodium [Moles/Vol] 140 mmol/L Normal 136-145 [facility] Comment on above: Performed By: #### B MP #### [facility] [address] [place] [address] Dr. Ibis Jimenez Urea nitrogen [Mass/Vol] 10.0 mg/dL Normal 7.0-18.[address] [facility] Comment on above: Performed By: #### B MP #### [facility] [address] [place] [address] Dr. Ibis Jimenez Urea nitrogen/Creatinine [Mass ratio] 12.5 mg/mg Normal [facility] Comment on above: Performed By: #### B MP #### [facility] [address] [place] [address] Dr. Ibis Jimenez CBC AUTO DIFFon 01-14-2022 BASO # 0.0 103/ul Normal 0.0-0.[address] [facility] Comment on above: Performed By: #### A MM #### [facility] [address] [place] [address] Dr. Ibis Jimenez Basophils/100 WBC (Bld) 0.3 % Normal 0.2-2.[address] [facility] Comment on above: Performed By: #### A MM #### [facility] [address] [place] [address] Dr. Ibis Jimenez EO # 0.2 103/ul Normal 0.0-0.[address] [facility] Comment on above: Performed By: #### A MM #### [facility] [address] [place] [address] Dr. Ibis Jimenez Eosinophils/100 WBC (Bld) 2.7 % Normal 0.9-7.[address] [facility] Comment on above: Performed By: #### A MM #### [facility] [address] [place] [address] Dr. Ibis Jimenez Erythrocyte distribution width (RBC) [Ratio] 13.2 % Normal 11.0-15.[address] [facility] Comment on above: Performed By: #### A MM #### [facility] [address] [place] [address] Dr. Ibis Jimenez Hematocrit (Bld) [Volume fraction] 35.7 % Critically low 36.0-48.0 [facility] Comment on above: Performed By: #### A MM #### [facility] [address] [place] [address] Dr. Ibis Jimenez Hemoglobin (Bld) [Mass/Vol] 12.2 g/dL Normal 12.0-16.[address] [facility] Comment on above: Performed By: #### A MM #### [facility] [address] [place] [address] Dr. Ibis Jimenez IG # 0.04 10e3/ul Critically high 0.00-0.03 [facility] Comment on above: Performed By: #### A MM #### [facility] [address] [place] [address] Dr. Ibis Jimenez IG % 0.5 % Normal 0.0-0.5 [facility] Comment on above: Performed By: #### A MM #### [facility] [address] [place] [address] Dr. Ibis Jimenez LYMPH # 2.1 103/ul Normal 1.2-3.[address] [facility] Comment on above: Performed By: #### A MM #### [facility] [address] [place] [address] Dr. Ibis Jimenez Lymphocytes/100 WBC (Bld) 27.3 % Normal 20.5-60.0 [facility] Comment on above: Performed By: #### A MM #### [facility] [address] [place] [address] Dr. Ibis Jimenez MANUAL DIFF REQ NO Normal [facility] Comment on above: Performed By: #### A MM #### [facility] [address] [place] [address] Dr. Ibis Jimenez MCH (RBC) [Entitic mass] 29.0 pg Normal 26.7-34.[address] [facility] Comment on above: Performed By: #### A MM #### [facility] [address] [place] [address] Dr. Ibis Jimenez MCHC (RBC) [Mass/Vol] 34.2 g/dL Normal 29.9-35.[address] [facility] Comment on above: Performed By: #### A MM #### [facility] [address] [place] [address] Dr. Ibis Jimenez MCV (RBC) [Entitic vol] 84.8 fL Normal 81.0-99.0 [facility] Comment on above: Performed By: #### A MM #### [facility] [address] [place] [address] Dr. Ibis Jimenez MONO # 0.7 103/ul Normal 0.3-0.[address] [facility] Comment on above: Performed By: #### A MM #### [facility] [address] [place] [address] Dr. Ibis Jimenez Monocytes/100 WBC (Bld) 8.7 % Normal 1.7-12.[address] [facility] Comment on above: Performed By: #### A MM #### [facility] [address] [place] [address] Dr. Ibis Jimenez NEUT # 4.7 103/ul Normal 1.4-6.[address] [facility] Comment on above: Performed By: #### A MM #### [facility] [address] [place] [address] Dr. Ibis Jimenez Neutrophils/100 WBC (Bld) 60.5 % Normal 43.0-75.[address] [facility] Comment on above: Performed By: #### A MM #### [facility] [address] [place] [address] Dr. Ibis Jimenez Platelet mean volume (Bld) [Entitic vol] 9.6 fL Normal 9.5-13.[address] [facility] Comment on above: Performed By: #### A MM #### [facility] [address] [place] [address] Dr. Ibis Jimenez PLT 212 103/ul Normal 150-[address] [facility] Comment on above: Performed By: #### A MM #### [facility] [address] [place] [address] Dr. Ibis Jimenez RBC 4.21 106/ul Normal 4.20-5.[address] [facility] Comment on above: Performed By: #### A MM #### [facility] [address] [place] [address] Dr. Ibis Jimenez WBC 7.7 103/ul Normal 4.0-11.0 [facility] Comment on above: Performed By: #### A MM #### [facility] [address] [address] [address] ABD/PELV W CONon [...] Bilirubin Ql (U) Negative Normal NEGATIVE [facility] Comment on above: Performed By: #### A CET, SALYC #### [facility] [address] [place] [address] Dr. Ibis Jimenez Clarity (U) CLEAR Normal CLEAR [facility] Comment on above: Performed By: #### A CET, SALYC #### [facility] [address] [place] [address] Dr. Ibis Jimenez Color (U) LT. YELLOW Normal YELLOW [facility] Comment on above: Performed By: #### A CET, SALYC #### [facility] [address] [place] [address] Dr. Ibis RODRIGUEZ A micrscopic examination will be performed if indicated. Normal [facility] Comment on above: Performed By: #### A CET, SALYC #### [facility] [address] [place] [address] Dr. Ibis Jimenez Glucose Ql (U) Negative Normal NEGATIVE [facility] Comment on above: Performed By: #### A CET, SALYC #### [facility] [address] [place] [address] Dr. Ibis Jimenez Hemoglobin Ql (U) Negative Normal NEGATIVE [facility] Comment on above: Performed By: #### A CET, SALYC #### [facility] [address] [place] [address] Dr. Ibis Jimenez Ketones Ql (U) Negative Normal NEGATIVE [facility] Comment on above: Performed By: #### A CET, SALYC #### [facility] [address] [place] [address] Dr. Ibis Jimenez LEUKOCYTES TRACE Abnormal NEGATIVE [facility] Comment on above: Performed By: #### A CET, SALYC #### [facility] [address] [place] [address] Dr. Ibis Jimenez Nitrite Ql (U) Negative Normal NEGATIVE [facility] Comment on above: Performed By: #### A CET, SALYC #### [facility] [address] [place] [address] Dr. Ibis Jimenez pH (U) 5.5 [pH] Normal 5-9 [facility] Comment on above: Performed By: #### A CET, SALYC #### [facility] [address] [place] [address] Dr. Ibis Jimenez SPEC GRAVITY 1.025 Normal 1.005-<=1.02 5 [facility] Comment on above: Performed By: #### A CET, SALYC #### [facility] [address] [place] [address] Dr. Ibis Jimenez UA PROTEIN Negative Normal NEGATIVE/ TRACE [facility] Comment on above: Performed By: #### A CET, SALYC #### [facility] [address] [place] [address] Dr. Ibis Jimenez UR MICRO IND INDICATED Normal [facility] Comment on above: Performed By: #### A CET, SALYC #### [facility] [address] [place] [address] Dr. Ibis Jimenez Urobilinogen Qn (U) 0.2 {Dinorah'U}/dL Normal 0.2 - 1. 0 [facility] Comment on above: Performed By: #### A CET, SALYC #### [facility] [address] [place] [address] Dr. Ibis Jimenez URon 01-14-2022 , QUAL Negative Normal NEGATIVE [facility] Comment on above: Performed By: #### A CET, SALYC #### [facility] [address] [place] [address] Dr. Ibis Jimenez PROF CHEM 8 (BAS METB)on Anion gap [Moles/Vol] 9.9 mmol/L Normal [facility] Comment on above: Performed By: #### B MP #### [facility] [address] [place] [address] Dr. Ibis Jimenez Calcium [Mass/Vol] 8.6 mg/dL Normal 8.5-10.1 [facility] Comment on above: Performed By: #### B MP #### [facility] [address] [place] [address] Dr. Ibis Jimenez Chloride [Moles/Vol] 105 mmol/L Normal 98-107 [facility] Comment on above: Performed By: #### B MP #### [facility] [address] [address] [address] Ibis Jimenez CO2 [Moles/Vol] 27.5 mmol/L Normal 21.0-32.0 [facility] Comment on above: Performed By: #### B MP #### [facility] [address] [place] [address] Dr. Ibis Jimenez Creatinine [Mass/Vol] 0.70 mg/dL Normal 0.55-1.[address] [facility] Comment on above: Performed By: #### B MP #### [facility] [address] [place] [address] Dr. Ibis Jimenez EGFR-AF [facility] >60 Normal >=60 [facility] Comment on above: Performed By: #### B MP #### [facility] [address] [place] [address] Dr. Ibis Jimenez EGFR-NON AF [facility] >60 Normal >=[address] [facility] Comment on above: Performed By: #### B MP #### [facility] [address] [place] [address] Dr. Ibis Jimenez Glucose [Mass/Vol] 83 mg/dL Normal 74-106 [facility] Comment on above: Performed By: #### B MP #### [facility] [address] [place] [address] Dr. Ibis Jimenez Potassium [Moles/Vol] 4.4 mmol/L Normal 3.5-5.[address] [facility] Comment on above: Performed By: #### B MP #### [facility] [address] [place] [address] Dr. Ibis Jimenez Sodium [Moles/Vol] 138 mmol/L Normal 136-145 [facility] Comment on above: Performed By: #### B MP #### [facility] [address] [place] [address] Dr. Ibis Jimenez Urea nitrogen [Mass/Vol] 13.0 mg/dL Normal 7.0-18.[address] [facility] Comment on above: Performed By: #### B MP #### [facility] [address] [place] [address] Dr. Ibis Jimenez Urea nitrogen/Creatinine [Mass ratio] 18.6 mg/mg Normal [facility] Comment on above: Performed By: #### B MP #### [facility] [address] [place] [address] Dr. Ibis Jimenez URINE MICROSCOPIC ONLYon BACTERIA NONE SEEN Normal NONE SEEN [facility] Comment on above: Performed By: #### A CET, SALYC #### [facility] [address] [place] [address] Dr. Ibis Jimenez Bacteria identified Cx Nom (U) NOT INDICATED Normal [facility] Comment on above: Performed By: #### A CET, SALYC #### [facility] [address] [place] [address] Dr. Ibis Jimenez CAST NONE SEEN Normal NONE SEEN [facility] Comment on above: Performed By: #### A CET, SALYC #### [facility] [address] [place] [address] Dr. Ibis Jimenez Crystals LM Nom (Urine sed) NONE SEEN Normal NONE SEEN [facility] Comment on above: Performed By: #### A CET, SALYC #### [facility] [address] [place] [address] Dr. Ibis Jimenez Epithelial cells LM Ql (Urine sed) FEW Abnormal NONE SEEN /RARE [facility] Comment on above: Performed By: #### A CET, SALYC #### [facility] [address] [place] [address] Dr. Ibis Jimenez MUCOUS NONE SEEN Normal NONE SEEN [facility] Comment on above: Performed By: #### A CET, SALYC #### [facility] [address] [place] [address] Dr. Ibis Jimenez RBC NONE SEEN Abnormal 0-[address] [facility] Comment on above: Performed By: #### A CET, SALYC #### [facility] [address] [place] [address] Dr. Ibis Jimenez WBC NONE SEEN Normal NONE SEEN [facility] Comment on above: Performed By: #### A CET, SALYC #### [facility] [address] [place] [address] Dr. Ibis Jimenez CBC AUTO DIFFon 01-07-2022 BASO # 0.0 103/ul Normal 0.0-0.1 [facility] Comment on above: Performed By: #### A CET, SALYC #### [facility] [address] [place] [address] Dr. Ibis Jimenez Basophils/100 WBC (Bld) 0.2 % Normal 0.2-2.0 [facility] Comment on above: Performed By: #### A CET, SALYC #### [facility] [address] [place] [address] Dr. Ibis Jimenez EO # 0.0 103/ul Normal 0.0-0.7 [facility] Comment on above: Performed By: #### A CET, SALYC #### [facility] [address] [place] [address] Dr. Ibis Jimenez Eosinophils/100 WBC (Bld) 0.4 % Critically low 0.9-7.0 [facility] Comment on above: Performed By: #### A CET, SALYC #### [facility] [address] [place] [address] Dr. Ibis Jimenez Erythrocyte distribution width (RBC) [Ratio] 13.2 % Normal 11.0-15.0 [facility] Comment on above: Performed By: #### A CET, SALYC #### [facility] [address] [place] [address] Dr. Ibis Jimenez Hematocrit (Bld) [Volume fraction] 39.7 % Normal 36.0-48.0 [facility] Comment on above: Performed By: #### A CET, SALYC #### [facility] [address] [place] [address] Dr. Ibis Jimenez Hemoglobin (Bld) [Mass/Vol] 13.4 g/dL Normal 12.0-16.0 [facility] Comment on above: Performed By: #### A CET, SALYC #### [facility] [address] [place] [address] Dr. Ibis Jimenez IG # 0.06 10e3/ul Critically high 0.00-0.03 [facility] Comment on above: Performed By: #### A CET, SALYC #### [facility] [address] [address] [address] Ibis Jimenez IG % 0.5 % Normal 0.0-0.5 [facility] Comment on above: Performed By: #### A CET, SALYC #### [facility] [address] [address] [address] Ibis Jimenez LYMPH # 2.6 103/ul Normal 1.2-3.8 [facility] Comment on above: Performed By: #### A CET, SALYC #### [facility] [address] [place] [address] Dr. bIis Jimenez Lymphocytes/100 WBC (Bld) 23.8 % Normal 20.5-60.0 [facility] Comment on above: Performed By: #### A CET, SALYC #### [facility] [address] [place] [address] Dr. Ibis Jimenez MANUAL DIFF REQ NO Normal [facility] Comment on above: Performed By: #### A CET, SALYC #### [facility] [address] [place] [address] Dr. Ibis Jimenez MCH (RBC) [Entitic mass] 28.8 pg Normal 26.7-34.0 [facility] Comment on above: Performed By: #### A CET, SALYC #### [facility] [address] [place] [address] Dr. Ibis Jimenez MCHC (RBC) [Mass/Vol] 33.8 g/dL Normal 29.9-35.2 [facility] Comment on above: Performed By: #### A CET, SALYC #### [facility] [address] [place] [address] Dr. Ibis Jimenez MCV (RBC) [Entitic vol] 85.2 fL Normal 81.0-99.0 [facility] Comment on above: Performed By: #### A CET, SALYC #### [facility] [address] [place] [address] Dr. Ibis Jimenez MONO # 0.8 103/ul Normal 0.3-0.8 [facility] Comment on above: Performed By: #### A CET, SALYC #### [facility] [address] [address] [address] Ibis Jimenez Monocytes/100 WBC (Bld) 7.7 % Normal 1.7-12.0 [facility] Comment on above: Performed By: #### A CET, SALYC #### [facility] [address] [address] [address] Ibis Jimenez NEUT # 7.4 103/ul Critically high 1.4-6.5 [facility] Comment on above: Performed By: #### A CET, SALYC #### [facility] [address] [address] [address] Ibis Jimenez Neutrophils/100 WBC (Bld) 67.4 % Normal 43.0-75.0 [facility] Comment on above: Performed By: #### A CET, SALYC #### [facility] [address] [place] [address] Dr. bIis Jimenez Platelet mean volume (Bld) [Entitic vol] 9.8 fL Normal 9.5-13.5 [facility] Comment on above: Performed By: #### A CET, SALYC #### [facility] [address] [place] [address] Dr. Ibis Jimenez PLT 261 103/ul Normal 150-[address] [facility] Comment on above: Performed By: #### A CET, SALYC #### [facility] [address] [place] [address] Dr. Ibis Jimenez RBC 4.66 106/ul Normal 4.20-5.[address] [facility] Comment on above: Performed By: #### A CET, SALYC #### [facility] [address] [place] [address] Dr. Ibis Jimenez WBC 10.9 103/ul Normal 4.0-11.[address] [facility] Comment on above: Performed By: #### A CET, SALYC #### [facility] [address] [place] [address] Dr. Ibis Jimenez PROF CHEM 8 (BAS METB)on 11- 18-2022 Anion gap [Moles/Vol] 14.1 mmol/L Normal [facility] Comment on above: Performed By: #### B MP #### [facility] [address] [place] [address] Dr. Ibis Jimenez Calcium [Mass/Vol] 8.5 mg/dL Normal 8.5-10.1 [facility] Comment on above: Performed By: #### B MP #### [facility] [address] [address] [address] Ibis Jimenez Chloride [Moles/Vol] 103 mmol/L Normal 98-107 [facility] Comment on above: Performed By: #### B MP #### [facility] [address] [place] [address] Dr. Ibis Jimenez CO2 [Moles/Vol] 22.5 mmol/L Normal 21.0-32.0 [facility] Comment on above: Performed By: #### B MP #### [facility] [address] [place] [address] Dr. Ibis Jimenez Creatinine [Mass/Vol] 0.64 mg/dL Normal 0.55-1.02 [facility] Comment on above: Performed By: #### B MP #### [facility] [address] [place] [address] Dr. Ibis Jimenez EGFR-AF [facility] >60 Normal >=60 [facility] Comment on above: Performed By: #### B MP #### [facility] [address] [place] [address] Dr. Ibis Jimenez EGFR-NON AF [facility] >60 Normal >=60 [facility] Comment on above: Performed By: #### B MP #### [facility] [address] [place] [address] Dr. Ibis Jimenez Glucose [Mass/Vol] 141 mg/dL Critically high 74-106 [facility] Comment on above: Performed By: #### B MP #### [facility] [address] [place] [address] Dr. Ibis Jimenez Potassium [Moles/Vol] 3.6 mmol/L Normal 3.5-5.1 [facility] Comment on above: Performed By: #### B MP #### [facility] [address] [place] [address] Dr. Ibis Jimenez Sodium [Moles/Vol] 136 mmol/L Normal 136-145 [facility] Comment on above: Performed By: #### B MP #### [facility] [address] [place] [address] Dr. Ibis Jimenez Urea nitrogen [Mass/Vol] 16.0 mg/dL Normal 7.0-18.0 [facility] Comment on above: Performed By: #### B MP #### [facility] [address] [place] [address] Dr. Ibis Jimenez Urea nitrogen/Creatinine [Mass ratio] 25.0 mg/mg Normal [facility] Comment on above: Performed By: #### B MP #### [facility] [address] [place] [address] Dr. Ibis Jimenez CBC AUTO DIFFon 11-04-2021 BASO # 0.0 103/ul Normal 0.0-0.1 [facility] Comment on above: Performed By: #### A CET, SALYC #### [facility] [address] [place] [address] Dr. Ibis Jimenez Basophils/100 WBC (Bld) 0.4 % Normal 0.2-2.0 [facility] Comment on above: Performed By: #### A CET, SALYC #### [facility] [address] [place] [address] Dr. Ibis Jimenez EO # 0.2 103/ul Normal 0.0-0.7 [facility] Comment on above: Performed By: #### A CET, SALYC #### [facility] [address] [place] [address] Dr. Ibis Jimenez Eosinophils/100 WBC (Bld) 4.1 % Normal 0.9-7.0 [facility] Comment on above: Performed By: #### A CET, SALYC #### [facility] [address] [place] [address] Dr. Ibis Jimenez Erythrocyte distribution width (RBC) [Ratio] 13.2 % Normal 11.0-15.0 [facility] Comment on above: Performed By: #### A CET, SALYC #### [facility] [address] [place] [address] Dr. Ibis Jimenez Hematocrit (Bld) [Volume fraction] 34.3 % Critically low 36.0-48.0 [facility] Comment on above: Performed By: #### A CET, SALYC #### [facility] [address] [place] [address] Dr. Ibis Jimenez Hemoglobin (Bld) [Mass/Vol] 11.5 g/dL Critically low 12.0-16.0 [facility] Comment on above: Performed By: #### A CET, SALYC #### [facility] [address] [place] [address] Dr. Ibis Jimenez IG # 0.01 10e3/ul Normal 0.00-0.03 [facility] Comment on above: Performed By: #### A CET, SALYC #### [facility] [address] [place] [address] Dr. Ibis Jimenez IG % 0.2 % Normal 0.0-0.5 [facility] Comment on above: Performed By: #### A CET, SALYC #### [facility] [address] [place] [address] Dr. Ibis Jimenez LYMPH # 1.5 103/ul Normal 1.2-3.[address] [facility] Comment on above: Performed By: #### A CET, SALYC #### [facility] [address] [place] [address] Dr. Ibis Jimenez Lymphocytes/100 WBC (Bld) 26.4 % Normal 20.5-60.0 [facility] Comment on above: Performed By: #### A CET, SALYC #### [facility] [address] [place] [address] Dr. Ibis Jimenez MANUAL DIFF REQ NO Normal [facility] Comment on above: Performed By: #### A CET, SALYC #### [facility] [address] [place] [address] Dr. Ibis Jimenez MCH (RBC) [Entitic mass] 28.8 pg Normal 26.7-34.[address] [facility] Comment on above: Performed By: #### A CET, SALYC #### [facility] [address] [place] [address] Dr. Ibis Jimenez MCHC (RBC) [Mass/Vol] 33.5 g/dL Normal 29.9-35.[address] [facility] Comment on above: Performed By: #### A CET, SALYC #### [facility] [address] [place] [address] Dr. Ibis Jimenez MCV (RBC) [Entitic vol] 86.0 fL Normal 81.0-99.[address] [facility] Comment on above: Performed By: #### A CET, SALYC #### [facility] [address] [place] [address] Dr. Ibis Jimenez MONO # 0.5 103/ul Normal 0.3-0.[address] [facility] Comment on above: Performed By: #### A CET, SALYC #### [facility] [address] [place] [address] Dr. Ibis Jimenez Monocytes/100 WBC (Bld) 8.2 % Normal 1.7-12.[address] [facility] Comment on above: Performed By: #### A CET, SALYC #### [facility] [address] [place] [address] Dr. Ibis Jimenez NEUT # 3.4 103/ul Normal 1.4-6.[address] [facility] Comment on above: Performed By: #### A CET, SALYC #### [facility] [address] [place] [address] Dr. Ibis Jimenez Neutrophils/100 WBC (Bld) 60.7 % Normal 43.0-75.[address] [facility] Comment on above: Performed By: #### A CET, SALYC #### [facility] [address] [place] [address] Dr. Ibis Jimenez Platelet mean volume (Bld) [Entitic vol] 9.9 fL Normal 9.5-13.[address] [facility] Comment on above: Performed By: #### A CET, SALYC #### [facility] [address] [address] [address] Ibis Jimenez PLT 222 103/ul Normal 150-450 [facility] Comment on above: Performed By: #### A CET, SALYC #### [facility] [address] [place] [address] Dr. Ibis Jimenez RBC 3.99 106/ul Critically low 4.20-5.40 [facility] Comment on above: Performed By: #### A CET, SALYC #### [facility] [address] [place] [address] Dr. Ibis Jimenez WBC 5.6 103/ul Normal 4.0-11.0 [facility] Comment on above: Performed By: #### A CET, SALYC #### [facility] [address] [place] [address] Dr. Ibis Jimenez PROF CHEM 8 (BAS METB)on Anion gap [Moles/Vol] 10.5 mmol/L Normal [facility] Comment on above: Performed By: #### B MP #### [facility] [address] [place] [address] Dr. Ibis Jimenez Calcium [Mass/Vol] 8.8 mg/dL Normal 8.5-10.1 [facility] Comment on above: Performed By: #### B MP #### [facility] [address] [place] [address] Dr. Ibis Jimenez Chloride [Moles/Vol] 105 mmol/L Normal 98-[address] [facility] Comment on above: Performed By: #### B MP #### [facility] [address] [place] [address] Dr. Ibis Jimenez CO2 [Moles/Vol] 24.9 mmol/L Normal 21.0-32.0 [facility] Comment on above: Performed By: #### B MP #### [facility] [address] [place] [address] Dr. Ibis Jimenez Creatinine [Mass/Vol] 0.71 mg/dL Normal 0.55-1.02 [facility] Comment on above: Performed By: #### B MP #### [facility] [address] [address] [address] Ibis Jimenez EGFR-AF [facility] >60 Normal >=60 [facility] Comment on above: Performed By: #### B MP #### [facility] [address] [address] [address] Ibis Jimenez EGFR-NON AF [facility] >60 Normal >=60 [facility] Comment on above: Performed By: #### B MP #### [facility] [address] [address] [address] Ibis Jimenez Glucose [Mass/Vol] 103 mg/dL Normal 74-106 [facility] Comment on above: Performed By: #### B MP #### [facility] [address] [address] [address] Ibis Jimenez Potassium [Moles/Vol] 3.4 mmol/L Critically low 3.5-5.1 [facility] Comment on above: Performed By: #### B MP #### [facility] [address] [address] [address] Ibis Jimenez Sodium [Moles/Vol] 137 mmol/L Normal 136-145 [facility] Comment on above: Performed By: #### B MP #### [facility] [address] [address] [address] Ibis Jimenez Urea nitrogen [Mass/Vol] 17.0 mg/dL Normal 7.0-18.0 [facility] Comment on above: Performed By: #### B MP #### [facility] [address] [address] [address] Ibis Jimenez Urea nitrogen/Creatinine [Mass ratio] 23.9 mg/mg Normal [facility] Comment on above: Performed By: #### B MP #### [facility] [address] [place] [address] Dr. Ibis Jimenez Basic Metab w/rfx MGon 10-20 (cont.) Normal [facility] Comment on above: Result Comment: Aver age GFR for 20-29 years old: 116 mL/min/1.73sq m Chronic Kidney Disease: <60 mL/min/1.73sq m Kidney failure: <15 mL/min/1.73sq m eGFR calculated using average adult body mass. Additional eGFR calculator available at: http://www.[employer].emids/multiple_crcl_2012.htm Performed By: #### B MPX #### [address] [address] Neurosurgical Nurse Practitioner: Tavon Nicole MD Anion gap [Moles/Vol] 10 mmol/L Normal 9-17 [facility] Comment on above: Performed By: #### B MPX #### [address] [address] Neurosurgical Nurse Practitioner: Tavon Nicole MD Calcium [Mass/Vol] 7.8 mg/dL Low 8.6-10.4 [facility] Comment on above: Performed By: #### B MPX #### [address] [address] Neurosurgical Nurse Practitioner: Tavon Nicole MD Chloride [Moles/Vol] 109 mmol/L High 98-107 [facility] Comment on above: Performed By: #### B MPX #### [address] [address] Neurosurgical Nurse Practitioner: Tavon Nicole MD CO2 [Moles/Vol] 20 mmol/L Normal 20-31 [facility] Comment on above: Performed By: #### B MPX #### [address] [address] Neurosurgical Nurse Practitioner: Tavon Nicole MD Creatinine [Mass/Vol] 0.45 mg/dL Low 0.50-0.90 [facility] Comment on above: Performed By: #### B MPX #### [address] [address] Neurosurgical Nurse Practitioner: Tavon Nicole MD GFR, Amer >60 Normal >60 [facility] Comment on above: Performed By: #### B MPX #### [facility] [employer] [address] [place] [address] Neurosurgical Nurse Practitioner: Tavon Nicole MD GFR,non Amer >60 Normal >60 [facility] Comment on above: Performed By: #### B MPX #### [address] [address] Neurosurgical Nurse Practitioner: Tavon Nicole MD Glucose [Mass/Vol] 84 mg/dL Normal 70-99 [facility] Comment on above: Performed By: #### B MPX #### [address] [address] Neurosurgical Nurse Practitioner: Tavon Nicole MD Potassium [Moles/Vol] 4.1 mmol/L Normal 3.7-5.3 [facility] Comment on above: Result Comment: SPEC IMEN SLIGHTLY HEMOLYZED, RESULTS MAY BE ADVERSELY AFFECTED. Performed By: #### B MPX #### [address] [address] Neurosurgical Nurse Practitioner: Tavon Nicole MD Sodium [Moles/Vol] 139 mmol/L Normal 135-144 [facility] Comment on above: Performed By: #### B MPX #### [address] [address] Neurosurgical Nurse Practitioner: Tavon Nicole MD Urea nitrogen [Mass/Vol] 8 mg/dL Normal 6-20 [facility] Comment on above: Performed By: #### B MPX #### [facility] [employer] [address] [place] [address] Neurosurgical Nurse Practitioner: Tavon Nicole MD Basic Metabolic Panel w/ Ref rossi to [facility] 10-20-2021 Anion gap [Moles/Vol] 10 mmol/L 9 - 17 mmol/L [facility] Calcium [Mass/Vol] 7.8 mg/dL Low 8.6 - 10. 4 mg/dL [facility] Chloride [Moles/Vol] 109 mmol/L High 98 - 10 7 mmol/L [facility] CO2 [Moles/Vol] 20 mmol/L 20 - 31 mmol/L [facility] Creatinine [Mass/Vol] 0.45 mg/dL Low 0.5 - 0.9 mg/dL [facility] GFR >60 60 - PI NF mL/min [facility] GFR Non- >60 60 - PINF mL/min [facility] GFR/1.73 sq M.predicted MDRD (S/P/Bld) [Vol rate/Area] [facility] Comment on above: Average GFR for 20-2 9 years old: 116 mL/min/1.73sq m Chronic Kidney Disease: <60 mL/min/1.73sq m Kidney failure: <15 mL/min/1.73sq m eGFR calculated using average adult body mass. Additional eGFR calculator available at: http://www.[employer]/multiple_crcl_2011.htm Glucose [Mass/Vol] 84 mg/dL 70 - 99 mg/dL [facility] Interpretation and review of laboratory results Abnormal [facility] Potassium [Moles/Vol] 4.1 mmol/L 3.7 - 5.3 mmol/L [facility] Comment on above: SPECIMEN SLIGHTLY HE MOLYZED, RESULTS MAY BE ADVERSELY AFFECTED. Sodium [Moles/Vol] 139 mmol/L 135 - 144 mmol/L [facility] Urea nitrogen (BldV) [Mass/Vol] 8 mg/dL 6 - 20 mg/dL [facility] CBC with Auto Differentialon 10-20-2021 Absolute Eos # 0.15 [facility] Absolute Immature Granulocyte [facility] Absolute Lymph # 1.48 [facility] Absolute [place] # 0.28 [facility] Basophils (Bld) [#/Vol] 0.03 10*3/uL [facility] Basophils/100 WBC (Bld) 1 % 0 - 2 % [facility] Eosinophils/100 WBC (Bld) 3 % 1 - 4 % [facility] Hematocrit (Bld) [Volume fraction] 35.5 % Low 36.3 - 47.1 % [facility] Hemoglobin (Bld) [Mass/Vol] 11.3 g/dL Low 11.9 - 15.1 g/dL [facility] Immature granulocytes/100 WBC (Bld) 0 % 0 [facility] Interpretation and review of laboratory results Abnormal [facility] Lymphocytes/100 WBC (Bld) 34 % 24 - 43 % [facility] MCH (RBC) [Entitic mass] 27.9 pg 25.2 - 33.5 pg [facility] MCHC (RBC) [Mass/Vol] 31.8 g/dL 28.4 - 34.8 g/dL [facility] MCV (RBC) [Entitic vol] 87.7 fL 82.6 - 102.9 fL [facility] Monocytes/100 WBC (Bld) 6 % 3 - 12 % [facility] NRBC Automated 0.0 0.0 per 100 WBC [facility] Platelet distribution width (Bld) [Ratio] 12.9 % 11.8 - 14.4 % [facility] Platelets (Bld) [#/Vol] See Reflexed IPF Result [facility] RBC (Bld) [#/Vol] 4.05 10*6/uL 3.95 - 5.1 1 m/uL [facility] Segmented neutrophils/100 WBC (Bld) 55 % 36 - 65 % [facility] Segs Absolute 2.42 [facility] WBC (Bld) [#/Vol] 4.4 10*3/uL [facility] CBC with Diffon 10-20-2021 Abs. Basophil 0.03 k/uL Normal 0.00-0.20 [facility] Comment on above: Performed By: #### C DP, IPF #### [facility] [address] [place] [address] Neurosurgical Nurse Practitioner: Tavon Nicole MD Abs.Imm.Granulocyte <0.03 Normal 0.00-0.30 [facility] Comment on above: Performed By: #### C DP, IPF #### [address] [address] Neurosurgical Nurse Practitioner: Tavon Nicole MD Abs.Neutrophil (Seg) 2.42 k/uL Normal 1.50-8.10 [facility] Comment on above: Performed By: #### C DP, IPF #### [address] [address] Neurosurgical Nurse Practitioner: Tavon Nicole MD Basophils/100 WBC (Bld) 1 % Normal 0-2 [facility] Comment on above: Performed By: #### C DP, IPF #### [address] [address] Neurosurgical Nurse Practitioner: Tavon Nicole MD Eosinophils (Bld) [#/Vol] 0.15 10*3/uL Normal 0.00-0.44 [facility] Comment on above: Performed By: #### C DP, IPF #### [address] [address] Neurosurgical Nurse Practitioner: Tavon Nicole MD Eosinophils/100 WBC (Bld) 3 % Normal 1-4 [facility] Comment on above: Performed By: #### C DP, IPF #### [address] [address] Neurosurgical Nurse Practitioner: Tavon Nicole MD Immature granulocytes/100 WBC (Bld) 0 % Normal 0 [facility] Comment on above: Performed By: #### C DP, IPF #### [address] [address] Neurosurgical Nurse Practitioner: Tavon Nicole MD Lymphocytes (Bld) [#/Vol] 1.48 10*3/uL Normal 1.10-3.70 [facility] Comment on above: Performed By: #### C DP, IPF #### [address] [address] Neurosurgical Nurse Practitioner: Tavon Nicole MD Lymphocytes/100 WBC (Bld) 34 % Normal 24-43 [facility] Comment on above: Performed By: #### C DP, IPF #### [address] [address] Neurosurgical Nurse Practitioner: Tavon Nicole MD Monocytes (Bld) [#/Vol] 0.28 10*3/uL Normal 0.10-1.20 [facility] Comment on above: Performed By: #### C DP, IPF #### [address] [address] Neurosurgical Nurse Practitioner: Tavon Nicole MD Monocytes/100 WBC (Bld) 6 % Normal 3-12 [facility] Comment on above: Performed By: #### C DP, IPF #### [address] [address] Neurosurgical Nurse Practitioner: Tavon Nicole MD Neutrophil (Seg) 55 % Normal 36-65 [facility] Comment on above: Performed By: #### C DP, IPF #### [address] [address] Neurosurgical Nurse Practitioner: Tavon Nicole MD Erythrocyte distribution width (RBC) [Ratio] 12.9 % Normal 11.8-14.4 [facility] Comment on above: Performed By: #### C DP, IPF #### [address] [address] Neurosurgical Nurse Practitioner: Tavon Nicole MD Hematocrit (Bld) [Volume fraction] 35.5 % Low 36.3-47.1 [facility] Comment on above: Performed By: #### C DP, IPF #### [address] [address] Neurosurgical Nurse Practitioner: Tavon Nicole MD Hemoglobin (Bld) [Mass/Vol] 11.3 g/dL Low 11.9-15.1 [facility] Comment on above: Performed By: #### C DP, IPF #### [address] [address] Neurosurgical Nurse Practitioner: Tavon Nicole MD MCH (RBC) [Entitic mass] 27.9 pg Normal 25.2-33.5 [facility] Comment on above: Performed By: #### C DP, IPF #### [address] [address] Neurosurgical Nurse Practitioner: Tavon Nicole MD MCHC (RBC) [Mass/Vol] 31.8 g/dL Normal 28.4-34.8 [facility] Comment on above: Performed By: #### C DP, IPF #### [address] [address] Neurosurgical Nurse Practitioner: Tavon Nicole MD MCV (RBC) [Entitic vol] 87.7 fL Normal 82.6-102.9 [facility] Comment on above: Performed By: #### C DP, IPF #### [address] [address] Neurosurgical Nurse Practitioner: Tavon Nicole MD NRBC Automated 0.0 per 100 WBC Normal 0.0 [facility] Comment on above: Performed By: #### C DP, IPF #### [address] [address] Neurosurgical Nurse Practitioner: Tavon Nicole MD Platelet Count See Reflexed IPF Result Normal 138-453 [facility] Comment on above: Performed By: #### C DP, IPF #### [address] [address] Neurosurgical Nurse Practitioner: Tavon Nicole MD RBC (Bld) [#/Vol] 4.05 10*6/uL Normal 3.95-5.11 [facility] Comment on above: Performed By: #### C DP, IPF #### [address] [address] Neurosurgical Nurse Practitioner: Tavon Nicole MD WBC (Bld) [#/Vol] 4.4 10*3/uL Normal 3.5-11.3 [facility] Comment on above: Performed By: #### C DP, IPF #### [facility] [place] [facility] [address] [place] [address] Neurosurgical Nurse Practitioner: Tavon Nicole MD EEG video monitoringon 10-20 Raiza Land MD 10/20/2021 12:11 PM Referring physician: Chris Blanchard [employer] Date:10/20/2021 Start Time:10/19/2021 @1258 End Time: 10/20/2021 @ 1200 Indication Patient with recurrent events Introduction This continuous video-EEG was acquired using a [employer] workstation at 256 samples/s. Electrodes were placed [...] Board Certified. Neurology Board Certified. Electronically Signed [facility] Phone: EEG video monitoringOrdered By: Raiza Land on 10-20-2021 [facility] Phone: Immature Platelet Fractionon 10-20-2021 Platelet, Fluorescence Platelet clumps present, count appears adequate. [facility] PLT, Immature Fract.on 10-20 Platelet, Fluoresc. Platelet clumps present, count appears adequate. Normal 138-453 [facility] Comment on above: Performed By: #### C DP, IPF #### [facility] [employer] [address] [place] [id number] Neurosurgical Nurse Practitioner: Tavon Nicole MD PROLACTINon 10-20-2021 Prolactin 41.7 ng/mL Critically high 4.8-23.3 [facility] Comment on above: Performed By: #### C VDTBH #### [facility] [address] [place], [place] [address] Dr. Ibis Jimenez CBCon 10-19-2021 Erythrocyte distribution width (RBC) [Ratio] 12.9 % Normal 11.8-14.4 [facility] Comment on above: Performed By: #### T ROPI LACTIC, CMPX, CBC #### [facility] [employer] [address] [place] [address] Neurosurgical Nurse Practitioner: Tavon Nicole MD Hematocrit (Bld) [Volume fraction] 31.5 % Low 36.3-47.1 [facility] Comment on above: Performed By: #### T ROPI LACTIC, CMPX, CBC #### [facility] [employer] [address] [place] [phone] Neurosurgical Nurse Practitioner: Tavon Nicole MD Hemoglobin (Bld) [Mass/Vol] 10.8 g/dL Low 11.9-15.1 [facility] Comment on above: Performed By: #### T ROPI, LACTIC, CMPX, CBC #### [facility] [place] [address] Neurosurgical Nurse Practitioner: Tavon Nicole MD MCH (RBC) [Entitic mass] 29.1 pg Normal 25.2-33.5 [facility] Comment on above: Performed By: #### T ROPI, LACTIC, CMPX, CBC #### [address] [address] Neurosurgical Nurse Practitioner: Tavon Nicole MD MCHC (RBC) [Mass/Vol] 34.3 g/dL Normal 28.4-34.8 [facility] Comment on above: Performed By: #### T ROPI, LACTIC, CMPX, CBC #### [address] [address] Neurosurgical Nurse Practitioner: Tavon Nicole MD MCV (RBC) [Entitic vol] 84.9 fL Normal 82.6-102.9 [facility] Comment on above: Performed By: #### T ROPI, LACTIC, CMPX, CBC #### [address] [address] Neurosurgical Nurse Practitioner: Tavon Nicole MD NRBC Automated 0.0 per 100 WBC Normal 0.0 [facility] Comment on above: Performed By: #### T ROPI, LACTIC, CMPX, CBC #### [address] [address] Neurosurgical Nurse Practitioner: Tavon Nicole MD Platelet mean volume (Bld) [Entitic vol] 9.8 fL Normal 8.1-13.5 [facility] Comment on above: Performed By: #### T ROPI, LACTIC, CMPX, CBC #### [address] [address] Neurosurgical Nurse Practitioner: Tavon Nicole MD Platelets (Bld) [#/Vol] 281 10*3/uL Normal 138-453 [facility] Comment on above: Performed By: #### T ROPI, LACTIC, CMPX, CBC #### [address] [address] Neurosurgical Nurse Practitioner: Tavon Nicole MD RBC (Bld) [#/Vol] 3.71 10*6/uL Low 3.95-5.11 [facility] Comment on above: Performed By: #### T ROPI, LACTIC, CMPX, CBC #### [facility] [place] [facility] [address] [place], [place] [phone] Neurosurgical Nurse Practitioner: Tavon Nicole MD WBC (Bld) [#/Vol] 5.0 10*3/uL Normal 3.5-11.3 [facility] Comment on above: Performed By: #### T ROPI, LACTIC, CMPX, CBC #### [facility] [address] [place], [place] [id number] Neurosurgical Nurse Practitioner: Tavon Nicole MD Hematocrit (Bld) [Volume fraction] 31.5 % Low 36.3 - 47.1 % [facility] Hemoglobin (Bld) [Mass/Vol] 10.8 g/dL Low 11.9 - 15.1 g/dL [facility] Interpretation and review of laboratory results Abnormal [facility] MCH (RBC) [Entitic mass] 29.1 pg 25.2 - 33.5 pg [facility] MCHC (RBC) [Mass/Vol] 34.3 g/dL 28.4 - 34.8 g/dL [facility] MCV (RBC) [Entitic vol] 84.9 fL 82.6 - 102.9 fL [facility] NRBC Automated 0.0 0.0 per 100 WBC [facility] Platelet distribution width (Bld) [Ratio] 12.9 % 11.8 - 14.4 % [facility] Platelet mean volume (Bld) [Entitic vol] 9.8 fL 8.1 - 13.5 fL [facility] Platelets (Bld) [#/Vol] 281 10*3/uL [facility] RBC (Bld) [#/Vol] 3.71 10*6/uL Low 3.95 - 5.1 1 m/uL [facility] WBC (Bld) [#/Vol] 5.0 10*3/uL [facility] CBC AUTO DIFFon 10-19-2021 EO # 0.2 103/ul Normal 0.0-0.7 [facility] Comment on above: Performed By: #### A MM #### [facility] [address] [place] [address] Dr. Ibis Jimenez Eosinophils/100 WBC (Bld) 3.9 % Normal 0.9-7.0 [facility] Comment on above: Performed By: #### A MM #### [facility] [address] [place] [address] Dr. Ibis Jimenez Erythrocyte distribution width (RBC) [Ratio] 13.1 % Normal 11.0-15.0 [facility] Comment on above: Performed By: #### A MM #### [facility] [address] [place] [address] Dr. Ibis Jimenez Hematocrit (Bld) [Volume fraction] 33.4 % Critically low 36.0-48.0 [facility] Comment on above: Performed By: #### A MM #### [facility] [address] [place] [address] Dr. Ibis iJmenez Hemoglobin (Bld) [Mass/Vol] 11.1 g/dL Critically low 12.0-16.0 [facility] Comment on above: Performed By: #### A MM #### [facility] [address] [place] [address] Dr. Ibis Jimenez LYMPH # 1.2 103/ul Normal 1.2-3.8 [facility] Comment on above: Performed By: #### A MM #### [facility] [address] [place] [address] Dr. Ibis Jimenez Lymphocytes/100 WBC (Bld) 25.9 % Normal 20.5-60.[address] [facility] Comment on above: Performed By: #### A MM #### [facility] [address] [place] [address] Dr. Ibis Jimenez MCHC (RBC) [Mass/Vol] 33.2 g/dL Normal 29.9-35.[address] [facility] Comment on above: Performed By: #### A MM #### [facility] [address] [place] [address] Dr. Ibis Jimenez MCV (RBC) [Entitic vol] 85.9 fL Normal 81.0-99.0 [facility] Comment on above: Performed By: #### A MM #### [facility] [address] [place] [address] Dr. Ibis Jimenez Monocytes/100 WBC (Bld) 7.7 % Normal 1.7-12.0 [facility] Comment on above: Performed By: #### A MM #### [facility] [address] [place] [address] Dr. Ibis Jimenez NEUT # 2.9 103/ul Normal 1.4-6.[address] [facility] Comment on above: Performed By: #### A MM #### [facility] [address] [place] [address] Dr. Ibis Jimenez Neutrophils/100 WBC (Bld) 61.5 % Normal 43.0-75.[address] [facility] Comment on above: Performed By: #### A MM #### [facility] [address] [place] [address] Dr. Ibis Jimenez PLT 264 103/ul Normal 150-[address] [facility] Comment on above: Performed By: #### A MM #### [facility] [address] [place] [address] Dr. Ibis Jimenez RBC 3.89 106/ul Critically low 4.20-5.40 [facility] Comment on above: Performed By: #### A MM #### [facility] [address] [place] [address] Dr. Ibis Jimenez WBC 4.7 103/ul Normal 4.0-11.[address] [facility] Comment on above: Performed By: #### A MM #### [facility] [address] [place] [address] Dr. Ibis Jimenez BASO # 0.0 103/ul Normal 0.0-0.[address] [facility] Comment on above: Performed By: #### A MM #### [facility] [address] [place] [address] Dr. Ibis Jimenez Performed By: #### [facility] #### [facility] [address] [place] [address] Dr. Ibis Jimenez Basophils/100 WBC (Bld) 0.6 % Normal 0.2-2.0 [facility] Comment on above: Performed By: #### A MM #### [facility] [address] [place] [address] Dr. Ibis Jimenez Performed By: #### C VDTBH #### [facility] [address] [place] [address] Dr. Ibis Jimenez EO # 0.3 103/ul Normal 0.0-0.[address] [facility] Comment on above: Performed By: #### C VDTBH #### [facility] [address] [place] [address] Dr. Ibis Jimenez Eosinophils/100 WBC (Bld) 5.0 % Normal 0.9-7.0 [facility] Comment on above: Performed By: #### C VDTBH #### [facility] [address] [place] [address] Dr. Ibis Jimenez Erythrocyte distribution width (RBC) [Ratio] 12.8 % Normal 11.0-15.0 [facility] Comment on above: Performed By: #### C VDTBH #### [facility] [address] [place] [address] Dr. Ibis Jimenez Hematocrit (Bld) [Volume fraction] 38.0 % Normal 36.0-48.0 [facility] Comment on above: Performed By: #### C VDTBH #### [facility] [address] [place] [address] Dr. Ibis Jimenez Hemoglobin (Bld) [Mass/Vol] 12.7 g/dL Normal 12.0-16.[address] [facility] Comment on above: Performed By: #### C VDTBH #### [facility] [address] [place] [address] Dr. Ibis Jimenez IG # 0.02 10e3/ul Normal 0.00-0.03 [facility] Comment on above: Performed By: #### A MM #### [facility] [address] [place] [address] Dr. Ibis Jimenez Performed By: #### C VDTBH #### [facility] [address] [place] [address] Dr. Ibis Jimenez IG % 0.4 % Normal 0.0-0.5 [facility] Comment on above: Performed By: #### A MM #### [facility] [address] [place] [address] Dr. Ibis Jimenez Performed By: #### C VDTBH #### [facility] [address] [place] [address] Dr. Ibis Jimenez LYMPH # 1.7 103/ul Normal 1.2-3.8 [facility] Comment on above: Performed By: #### C VDTBH #### [facility] [address] [place] [address] Dr. Ibis Jimenez Lymphocytes/100 WBC (Bld) 30.7 % Normal 20.5-60.0 [facility] Comment on above: Performed By: #### C VDTBH #### [facility] [address] [place] [address] Dr. Ibis Jimenez MANUAL DIFF REQ NO Normal [facility] Comment on above: Performed By: #### A MM #### [facility] [address] [place] [address] Dr. Ibis Jimenez Performed By: #### C VDTBH #### [facility] [address] [place] [address] Dr. Ibis Jimenez MCH (RBC) [Entitic mass] 28.5 pg Normal 26.7-34.0 [facility] Comment on above: Performed By: #### A MM #### [facility] [address] [place] [address] Dr. Ibis Jimenez Performed By: #### C VDTBH #### [facility] [address] [place] [address] Dr. Ibis Jimenez MCHC (RBC) [Mass/Vol] 33.4 g/dL Normal 29.9-35.2 [facility] Comment on above: Performed By: #### C VDTBH #### [facility] [address] [place] [address] Dr. Ibis Jimenez MCV (RBC) [Entitic vol] 85.2 fL Normal 81.0-99.0 [facility] Comment on above: Performed By: #### C VDTBH #### [facility] [address] [place] [address] Dr. Ibis Jimenez MONO # 0.4 103/ul Normal 0.3-0.8 [facility] Comment on above: Performed By: #### A MM #### [facility] [address] [place] [address] Dr. Ibis Jimenez Performed By: #### C VDTBH #### [facility] [address] [place] [address] Dr. Ibis Jimenez Monocytes/100 WBC (Bld) 8.1 % Normal 1.7-12.0 [facility] Comment on above: Performed By: #### C VDTBH #### [facility] [address] [place] [address] Dr. Ibis Jimenez NEUT # 3.0 103/ul Normal 1.4-6.5 [facility] Comment on above: Performed By: #### C VDTBH #### [facility] [address] [place] [address] Dr. Ibis Jimenez Neutrophils/100 WBC (Bld) 55.2 % Normal 43.0-75.0 [facility] Comment on above: Performed By: #### C VDTBH #### [facility] [address] [place] [address] Dr. Ibis Jimenez Platelet mean volume (Bld) [Entitic vol] 9.5 fL Normal 9.5-13.5 [facility] Comment on above: Performed By: #### A MM #### [facility] [address] [place] [address] Dr. Ibis Jimenez Performed By: #### C VDTBH #### [facility] [address] [place] [address] Dr. Ibis Jimenez PLT 343 103/ul Normal 150-[address] [facility] Comment on above: Performed By: #### C VDTBH #### [facility] [address] [place], [place] [address] Dr. Ibis Jimenez RBC 4.46 106/ul Normal 4.20-5.40 [facility] Comment on above: Performed By: #### C VDTBH #### [facility] [address] [place], [place] [address] Dr. Ibis Jimenez WBC 5.4 103/ul Normal 4.0-11.0 [facility] Comment on above: Performed By: #### C VDTBH #### [facility] [address] [place], [place] [address] HEAD WO CONon [...] LOPEZ REYNOLDS Date: 2021-10-19 07:[address] [facility] Metabolic Pr/rfx MGon 0 10-19-2021 (cont.) Normal [facility] Comment on above: Result Comment: Aver age GFR for 20-29 years old: 116 mL/min/1.73sq m Chronic Kidney Disease: <60 mL/min/1.73sq m Kidney failure: <15 mL/min/1.73sq m eGFR calculated using average adult body mass. Additional eGFR calculator available at: http://www.MedS[employer].emids/multiple_crcl_2012.htm Performed By: #### T ROPI, LACTIC, CMPX, CBC #### [facility] [employer] [address] [place] [address] Neurosurgical Nurse Practitioner: Tavon Nicole MD Albumin [Mass/Vol] 3.5 g/dL Normal 3.5-5.2 [facility] Comment on above: Performed By: #### T ROPI, LACTIC, CMPX, CBC #### [address] [address] Neurosurgical Nurse Practitioner: Tavon Nicole MD Albumin/Glob Ratio 1.4 Normal 1.0-2.5 [facility] Comment on above: Performed By: #### T ROPI, LACTIC, CMPX, CBC #### [address] [address] Neurosurgical Nurse Practitioner: Tavon Nicole MD Alkaline Phos 69 U/L Normal 35-104 [facility] Comment on above: Performed By: #### T ROPI, LACTIC, CMPX, CBC #### [address] [address] Neurosurgical Nurse Practitioner: Tavon Nicole MD ALT [Catalytic activity/Vol] 15 U/L Normal 5-33 [facility] Comment on above: Performed By: #### T ROPI, LACTIC, CMPX, CBC #### [address] [address] Neurosurgical Nurse Practitioner: Tavon Nicole MD Anion gap [Moles/Vol] 13 mmol/L Normal 9-17 [facility] Comment on above: Performed By: #### T ROPI, LACTIC, CMPX, CBC #### [address] [address] Neurosurgical Nurse Practitioner: Tavon Nicole MD AST [Catalytic activity/Vol] 12 U/L Normal <32 [facility] Comment on above: Performed By: #### T ROPI, LACTIC, CMPX, CBC #### [address] [address] Neurosurgical Nurse Practitioner: Tavon Nicole MD Bilirubin [Mass/Vol] 0.24 mg/dL Low 0.3-1.2 [facility] Comment on above: Performed By: #### T ROPI, LACTIC, CMPX, CBC #### [facility] [address] [place] [address] Neurosurgical Nurse Practitioner: Tavon Nicole MD Calcium [Mass/Vol] 8.1 mg/dL Low 8.6-10.4 [facility] Comment on above: Performed By: #### T ROPI, LACTIC, CMPX, CBC #### [facility] [place] [facility] [address] [place] [address] Neurosurgical Nurse Practitioner: Tavon Nciole MD Chloride [Moles/Vol] 107 mmol/L Normal 98-107 [facility] Comment on above: Performed By: #### T ROPI, LACTIC, CMPX, CBC #### [facility] [place] [facility] [address] [place] [address] Neurosurgical Nurse Practitioner: Tavon Nicole MD CO2 [Moles/Vol] 19 mmol/L Low 20-31 [facility] Comment on above: Performed By: #### T ROPI, LACTIC, CMPX, CBC #### [facility] [place] [facility] [address] [place] [address] Neurosurgical Nurse Practitioner: Tavon Nicole MD Creatinine [Mass/Vol] 0.53 mg/dL Normal 0.50-0.90 [facility] Comment on above: Performed By: #### T ROPI, LACTIC, CMPX, CBC #### [facility] [address] [place] [address] Neurosurgical Nurse Practitioner: Tavon Nicole MD GFR, Amer >60 Normal >60 [facility] Comment on above: Performed By: #### T ROPI, LACTIC, CMPX, CBC #### [facility] [address] [place] [address] Neurosurgical Nurse Practitioner: Tavon Nicole MD GFR,non Amer >60 Normal >60 [facility] Comment on above: Performed By: #### T ROPI, LACTIC, CMPX, CBC #### [facility] [address] [place] [address] Neurosurgical Nurse Practitioner: Tavon Nicole MD Glucose [Mass/Vol] 81 mg/dL Normal 70-99 [facility] Comment on above: Performed By: #### T ROPI, LACTIC, CMPX, CBC #### [facility] [place] [facility] [address] [place] [address] Neurosurgical Nurse Practitioner: Tavon Nicole MD Potassium [Moles/Vol] 3.9 mmol/L Normal 3.7-5.3 [facility] Comment on above: Performed By: #### T ROPI, LACTIC, CMPX, CBC #### [address] [address] Neurosurgical Nurse Practitioner: Tavon Nicole MD Protein [Mass/Vol] 6.0 g/dL Low 6.4-8.3 [facility] Comment on above: Performed By: #### T ROPI, LACTIC, CMPX, CBC #### [facility] [employer] [address] [place] [address] Neurosurgical Nurse Practitioner: Tavon Nicole MD Sodium [Moles/Vol] 139 mmol/L Normal 135-144 [facility] Comment on above: Performed By: #### T ROPI, LACTIC, CMPX, CBC #### [facility] [employer] [address] [place] [address] Neurosurgical Nurse Practitioner: Tavon Nicole MD Urea nitrogen [Mass/Vol] 10 mg/dL Normal 6-20 [facility] Comment on above: Performed By: #### T ROPI, LACTIC, CMPX, CBC #### [facility] [employer] [address] [place] [address] Neurosurgical Nurse Practitioner: Tavon Nicole MD Comprehensive Metabolic Pane l w/ Reflex to MGon 10-19-2021 Albumin [Mass/Vol] 3.5 g/dL 3.5 - 5.2 g/dL [facility] Albumin/Globulin [Mass ratio] 1.4 {ratio} 1 - 2.5 [facility] ALP (Bld) [Catalytic activity/Vol] 69 U/L 35 - 104 U/L [facility] ALT [Catalytic activity/Vol] 15 U/L 5 - 33 U/L [facility] Anion gap [Moles/Vol] 13 mmol/L 9 - 17 mmol/L [facility] AST [Catalytic activity/Vol] 12 U/L NINF - 32 U/L [facility] Bilirubin [Mass/Vol] 0.24 mg/dL Low 0.3 - 1 .2 mg/dL [facility] Calcium [Mass/Vol] 8.1 mg/dL Low 8.6 - 10. 4 mg/dL [facility] Chloride [Moles/Vol] 107 mmol/L 98 - 10 7 mmol/L [facility] CO2 [Moles/Vol] 19 mmol/L Low 20 - 31 mmol/L [facility] Creatinine [Mass/Vol] 0.53 mg/dL 0.5 - 0.9 mg/dL [facility] Free PSA/Total PSA [Mass fraction] 6.0 g/dL Low 6.4 - 8.3 g/dL [facility] GFR >60 60 - PI NF mL/min [facility] GFR Non- >60 60 - PINF mL/min [facility] GFR/1.73 sq M.predicted MDRD (S/P/Bld) [Vol rate/Area] [facility] Comment on above: Average GFR for 20-2 9 years old: 116 mL/min/1.73sq m Chronic Kidney Disease: <60 mL/min/1.73sq m Kidney failure: <15 mL/min/1.73sq m eGFR calculated using average adult body mass. Additional eGFR calculator available at: http://www.MedSolutions.emids/multiple_crcl_2011.htm Glucose [Mass/Vol] 81 mg/dL 70 - 99 mg/dL [facility] Interpretation and review of laboratory results Abnormal [facility] Potassium [Moles/Vol] 3.9 mmol/L 3.7 - 5.3 mmol/L [facility] Sodium [Moles/Vol] 139 mmol/L 135 - 144 mmol/L [facility] Urea nitrogen (BldV) [Mass/Vol] 10 mg/dL 6 - 20 mg/dL [facility] Covid-19 PCR (CVDTBH)on 09-22 SARS-CoV-2 (COVID-19) RNA [...] for this test is supported by the House Supervisor of Health and Human Service's declaration that [...] used). Performed By: #### C VDTBH #### [facility] [address] [place] [address] Dr. Ibis Jimenez DRUG SCREEN RAPID (URINE)on 10-19-2021 AMP Negative Normal NEGATIVE [facility] Comment on above: Performed By: #### B MP #### [facility] [address] [place] [address] [address] Ibis Jimenez BAR Positive Abnormal NEGATIVE [facility] Comment on above: Performed By: #### B MP #### [facility] [address] [place] [address] [address] Ibis Jimenez BUP Negative Normal NEGATIVE [facility] Comment on above: Performed By: #### B MP #### [facility] [address] [place] [address] Dr. Ibis Jimenez BZO Positive Abnormal NEGATIVE [facility] Comment on above: Performed By: #### B MP #### [facility] [address] [place] [address] Dr. Ibis Jimenez SEMAJ Negative Normal NEGATIVE [facility] Comment on above: Performed By: #### B MP #### [facility] [address] [place] [address] Dr. Ibis Jimenez CUT-OFFS SEE BELOW Normal [facility] Comment on above: Result Comment: AMP (Amphetamine): [...] B MP #### [facility] [address] [place] [address] Dr. Ibis Jimenez DRUG CUT HEADER DRUG CLASS TEST SYSTEM CUT-OFF CONCENTRATIONS ARE FOLLOWS: Normal [facility] Comment on above: Performed By: #### B MP #### [facility] [address] [place] [address] Dr. Ibis Jimenez mAMP Negative Normal NEGATIVE [facility] Comment on above: Performed By: #### B MP #### [facility] [address] [place] [address] Dr. Ibis Jimenez MTD Negative Normal NEGATIVE [facility] Comment on above: Performed By: #### B MP #### [facility] [address] [place] [address] Dr. Ibis Jimenez OPI Positive Abnormal NEGATIVE [facility] Comment on above: Performed By: #### B MP #### [facility] [address] [place] [address] Dr. Ibis Jimenez OXY Positive Abnormal NEGATIVE [facility] Comment on above: Performed By: #### B MP #### [facility] [address] [place] [address] Dr. Ibis Jimenez PCP Negative Normal NEGATIVE [facility] Comment on above: Performed By: #### B MP #### [facility] [address] [place] [address] [address] Ibis Jimenez PPX Negative Normal NEGATIVE [facility] Comment on above: Performed By: #### B MP #### [facility] [address] [place] [address] [address] Ibis Jimenez TCA Negative Normal NEGATIVE [facility] Comment on above: Performed By: #### B MP #### [facility] [address] [place] [address] Dr. Ibis Jimenez THC Negative Normal NEGATIVE [facility] Comment on above: Performed By: #### B MP #### [facility] [address] [place] [address] Dr. Ibis Jimenez ER URINE PROFILEon 2 Bilirubin Ql (U) Negative Normal NEGATIVE [facility] Comment on above: Performed By: #### B MP #### [facility] [address] [place] [address] Dr. Ibis Jimenez Clarity (U) CLEAR Normal CLEAR [facility] Comment on above: Performed By: #### B MP #### [facility] [address] [place] [address] Dr. Ibis Jimenez Color (U) YELLOW Normal YELLOW [facility] Comment on above: Performed By: #### B MP #### [facility] [address] [place] [address] Dr. Ibis RODRIGUEZ A micrscopic examination will be performed if indicated. Normal [facility] Comment on above: Performed By: #### B MP #### [facility] [address] [place] [address] Dr. Ibis Jimenez Glucose Ql (U) Negative Normal NEGATIVE [facility] Comment on above: Performed By: #### B MP #### [facility] [address] [place] [address] Dr. Ibis Jimenez Hemoglobin Ql (U) TRACE-INTACT Abnormal NEGATIVE [facility] Comment on above: Performed By: #### B MP #### [facility] [address] [place] [address] Dr. Ibis Jimenez Ketones Ql (U) Negative Normal NEGATIVE [facility] Comment on above: Performed By: #### B MP #### [facility] [address] [place] [address] Dr. Ibsi Jimenez LEUKOCYTES Negative Normal NEGATIVE [facility] Comment on above: Performed By: #### B MP #### [facility] [address] [place] [address] Dr. Ibis Jimenez Nitrite Ql (U) Negative Normal NEGATIVE [facility] Comment on above: Performed By: #### B MP #### [facility] [address] [place] [address] Dr. Ibis Jimenez pH (U) 5.5 [pH] Normal 5-9 [facility] Comment on above: Performed By: #### B MP #### [facility] [address] [place] [address] Dr. Ibis Jimenez SPEC GRAVITY >=1.030 Abnormal 1.005-<=1.02 5 [facility] Comment on above: Performed By: #### B MP #### [facility] [address] [place] [address] Dr. Ibis Jimenez UA PROTEIN Negative Normal NEGATIVE/ TRACE [facility] Comment on above: Performed By: #### B MP #### [facility] [address] [place] [address] Dr. Ibis Jimenez UR MICRO IND INDICATED Normal [facility] Comment on above: Performed By: #### B MP #### [facility] [address] [place] [address] Dr. Ibis Jimenez Urobilinogen Qn (U) 0.2 {Dinorah'U}/dL Normal 0.2 - 1. 0 [facility] Comment on above: Performed By: #### B MP #### [facility] [address] [place], [place] [address] Dr. Ibis Jimenez LACTATE/LACTIC ACIDon 2021 Lactate [Moles/Vol] 1.2 mmol/L Normal 0.4-1.9 [facility] Comment on above: Performed By: #### A MM #### [facility] [address] [place], [place] [address] Dr. Ibis Jimenez Lactic Acidon 10-19-2021 Lactic Acid,Whole Bl 0.9 mmol/L Normal 0.7-2.1 [facility] Comment on above: Performed By: #### T ROPI, LACTIC, CMPX, CBC #### [facility] [address] [place] [address] Neurosurgical Nurse Practitioner: Tavon Nicole MD Lactic Acid, Whole Blood 0.9 mmol/L 0.7 - 2.1 mmol/L [facility] MONOon 10-19-2021 Monocytes (Bld) [#/Vol] Negative Normal NEGATIVE [facility] Comment on above: Performed By: #### M DAVID #### [facility] [address] [place], [place] [id number] Dr. Ibis Jimenez MRI BRAIN W WO [...] Marks DO 10/19/21 Final result Normal [facility] Unremarkable MR brain. [facility] EXAMINATION: MRI OF THE BRAIN [...] The soft tissues demonstrate no acute abnormality. [facility] Carlos Marks DO - 10/19/2021 [...] no acute abnormality. IMPRESSION: Unremarkable MR brain. [facility] Phone: Radiology Study observation (narrative) [facility] Phone: MRI BRAIN W WO CONTRASTOrder ed By: Carlos Marks on 10-19-2021 [facility] [place] [facility]: PH VENOUS BLOODon 10-19-2021 PCO2 VENOUS 36.6 mmHg Critically low 40.0-52.0 [facility] Comment on above: Performed By: #### B MP #### [facility] [address] [place] [address] Dr. Ibis Jimenez pH VENOUS 7.387 Normal 7.330-7.430 [facility] Comment on above: Performed By: #### B MP #### [facility] [address] [place] [address] [address] Ibis Jimenez PROF CHEM 8 (BAS METB)on Anion gap [Moles/Vol] 11.9 mmol/L Normal [facility] Comment on above: Performed By: #### M DAVID #### [facility] [address] [place] [address] [address] Ibis Jimenez Calcium [Mass/Vol] 9.1 mg/dL Normal 8.5-10.1 [facility] Comment on above: Performed By: #### M DAVID #### [facility] [address] [place] [address] [address] Ibis Jimenez Chloride [Moles/Vol] 104 mmol/L Normal 98-107 [facility] Comment on above: Performed By: #### M DAVID #### [facility] [address] [place] [address] [address] Ibis Jimenez CO2 [Moles/Vol] 26.7 mmol/L Normal 21.0-32.0 [facility] Comment on above: Performed By: #### M DAVID #### [facility] [address] [place] [address] [address] Ibis Jimenez Creatinine [Mass/Vol] 0.78 mg/dL Normal 0.55-1.[address] [facility] Comment on above: Performed By: #### M DAVID #### [facility] [address] [place] [address] [address] Ibis Jimenez EGFR-AF [facility] >60 Normal >=60 [facility] Comment on above: Performed By: #### M DAVID #### [facility] [address] [place] [address] [address] Ibis Jimenez EGFR-NON AF [facility] >60 Normal >=[address] [facility] Comment on above: Performed By: #### M DAVID #### [facility] [address] [place] [address] [address] Ibis Jimenez Glucose [Mass/Vol] 96 mg/dL Normal 74-106 [facility] Comment on above: Performed By: #### M DAVID #### [facility] [address] [place] [address] [address] Ibis Jimenez Potassium [Moles/Vol] 3.6 mmol/L Normal 3.5-5.[address] [facility] Comment on above: Performed By: #### M DAVID #### [facility] [address] [place] [address] [address] Ibis Jimenez Sodium [Moles/Vol] 139 mmol/L Normal 136-145 [facility] Comment on above: Performed By: #### M DAVID #### [facility] [address] [place] [address] [address] Ibis Jimenez Urea nitrogen [Mass/Vol] 14.0 mg/dL Normal 7.0-18.[address] [facility] Comment on above: Performed By: #### M DAVID #### [facility] [address] [place] [address] [address] Ibis Jimenez Urea nitrogen/Creatinine [Mass ratio] 17.9 mg/mg Normal [facility] Comment on above: Performed By: #### M DAVID #### [facility] [address] [place], [place] [address] Dr. Ibis Jimenez TSHon 10-19-2021 TSH 1.389 uIU/mL Normal 0.358-3.740 [facility] Comment on above: Performed By: #### A CET, SALYC #### [facility] [address] [place] [address] [address] Ibis Jimenez Troponinon 10-19-2021 Troponin, High Sens <6 Normal 0-14 [facility] Comment on above: Result Comment: High Sensitivity Troponin values cannot be compared with other Troponin methodologies. Patients with high levels of Biotin oral intake (i.e >5mg/day) may have falsely decreased Troponin levels. Samples collected within 8 hours of biotin intake may require additional information for diagnosis. Performed By: #### T ROPI, LACTIC, CMPX, CBC #### [facility] [address] [place] [address] Neurosurgical Nurse Practitioner: Tavon Nicole MD Troponin, High Sensitivity ng/L 0 - 14 ng/L [facility] Comment on above: High Sensitivity Troponin values cannot be compared with other Troponin methodologies. Patients with high levels of Biotin oral intake (i.e >5mg/day) may have falsely decreased Troponin levels. Samples collected within 8 hours of biotin intake may require additional information for diagnosis. [facility] URINE MICROSCOPIC ONLYon BACTERIA TRACE Abnormal NONE SEEN [facility] Comment on above: Performed By: #### B MP #### [facility] [address] [place] [address] Dr. Ibis Jimenez Bacteria identified Cx Nom (U) NOT INDICATED Normal [facility] Comment on above: Performed By: #### B MP #### [facility] [address] [address] [address] Ibis Jimenez CAST NONE SEEN Normal NONE SEEN [facility] Comment on above: Performed By: #### B MP #### [facility] [address] [address] [address] Ibis Jimenez Crystals LM Nom (Urine sed) NONE SEEN Normal NONE SEEN [facility] Comment on above: Performed By: #### B MP #### [facility] [address] [place] [address] Dr. Ibis Jimenez Epithelial cells LM Ql (Urine sed) RARE Normal NONE SEEN /RARE [facility] Comment on above: Performed By: #### B MP #### [facility] [address] [place] [address] Dr. Ibis Jimenez MUCOUS LARGE Abnormal NONE SEEN [facility] Comment on above: Performed By: #### B MP #### [facility] [address] [place] [address] Dr. Ibis Jimenez RBC 2-5 Abnormal 0-[address] [facility] Comment on above: Performed By: #### B MP #### [facility] [address] [place] [address] Dr. Ibis Jimenez WBC 0-2 Abnormal NONE SEEN [facility] Comment on above: Performed By: #### B MP #### [facility] [address] [place] [address] ABD/PELVIS WO CONon [...] by: JASS LAURENT Date: 2021-10-06 20:08 Normal [facility] ER URINE PROFILEon 2 Bilirubin Ql (U) Negative Normal NEGATIVE [facility] Comment on above: Performed By: #### M DAVID #### [facility] [address] [place] [address] Dr. Ibis Jimenez Clarity (U) CLEAR Normal CLEAR [facility] Comment on above: Performed By: #### M DAVID #### [facility] [address] [place] [address] Dr. Ibis Jimenez Color (U) LT. YELLOW Normal YELLOW [facility] Comment on above: Performed By: #### M DAVID #### [facility] [address] [place] [address] Dr. Ibis LOZOYAKishan A micrscopic examination will be performed if indicated. Normal [facility] Comment on above: Performed By: #### M DAVID #### [facility] [address] [place] [address] Dr. Ibis Jimenez Glucose Ql (U) Negative Normal NEGATIVE [facility] Comment on above: Performed By: #### M DAVID #### [facility] [address] [place] [address] Dr. Ibis Jimenez Hemoglobin Ql (U) Negative Normal NEGATIVE [facility] Comment on above: Performed By: #### M DAVID #### [facility] [address] [place] [address] Dr. Ibis Jimenez Ketones Ql (U) Negative Normal NEGATIVE [facility] Comment on above: Performed By: #### M DAVID #### [facility] [address] [place] [address] Dr. Ibis Jimenez LEUKOCYTES Negative Normal NEGATIVE [facility] Comment on above: Performed By: #### M DAVID #### [facility] [address] [place] [address] Dr. Ibis Jimenez Nitrite Ql (U) Negative Normal NEGATIVE [facility] Comment on above: Performed By: #### M DAVID #### [facility] [address] [place] [address] Dr. Ibis Jimenez pH (U) 8.0 [pH] Normal 5-9 [facility] Comment on above: Performed By: #### M DAVID #### [facility] [address] [place] [address] Dr. Ibis Jimenez SPEC GRAVITY 1.010 Normal 1.005-<=1.[address] [place] [address] Comment on above: Performed By: #### M DAVID #### [facility] [address] [place] [address] Dr. Ibis Jimenez UA PROTEIN Negative Normal NEGATIVE/ TRACE [facility] Comment on above: Performed By: #### M DAVID #### [facility] [address] [place] [address] Dr. Ibis Jimenez UR MICRO IND NOT INDICATED Normal [facility] Comment on above: Performed By: #### M DAVID #### [facility] [address] [place] [address] Dr. Ibis Jimenez Urobilinogen Qn (U) 0.2 {Dinorah'U}/dL Normal 0.2 - 1. 0 [facility] Comment on above: Performed By: #### M DAVID #### [facility] [address] [place] [address] Dr. Ibis Jimenez ER URINE PROFILEon 2 Bilirubin Ql (U) Negative Normal NEGATIVE [facility] Comment on above: Performed By: #### C VDTBH #### [facility] [address] [place] [address] Dr. Ibis Jimenez Clarity (U) CLEAR Normal CLEAR [facility] Comment on above: Performed By: #### C VDTBH #### [facility] [address] [place] [address] Dr. Ibis Jimenez Color (U) YELLOW Normal YELLOW [facility] Comment on above: Performed By: #### C VDTBH #### [facility] [address] [place] [address] Dr. Ibis RODRIGUEZ A micrscopic examination will be performed if indicated. Normal [facility] Comment on above: Performed By: #### C VDTBH #### [facility] [address] [place] [address] Dr. Ibis Jimenez Glucose Ql (U) Negative Normal NEGATIVE [facility] Comment on above: Performed By: #### C VDTBH #### [facility] [address] [place] [address] Dr. Ibis Jimenez Hemoglobin Ql (U) Negative Normal NEGATIVE [facility] Comment on above: Performed By: #### C VDTBH #### [facility] [address] [place] [address] Dr. Ibis Jimenez Ketones Ql (U) Negative Normal NEGATIVE [facility] Comment on above: Performed By: #### C VDTBH #### [facility] [address] [place] [address] Dr. Ibis Jimenez LEUKOCYTES Negative Normal NEGATIVE [facility] Comment on above: Performed By: #### C VDTBH #### [facility] [address] [place] [address] Dr. Ibis Jimenez Nitrite Ql (U) Negative Normal NEGATIVE [facility] Comment on above: Performed By: #### C VDTBH #### [facility] [address] [place] [address] Dr. Ibis Jimenez pH (U) 6.0 [pH] Normal 5-[address] [facility] Comment on above: Performed By: #### C VDTBH #### [facility] [address] [place] [address] Dr. Ibis Jimenez SPEC GRAVITY 1.025 Normal 1.005-<=1.[address] [facility] Comment on above: Performed By: #### C VDTBH #### [facility] [address] [place] [address] Dr. Ibis Jimenez UA PROTEIN Negative Normal NEGATIVE/ TRACE [facility] Comment on above: Performed By: #### C VDTBH #### [facility] [address] [place] [address] Dr. Ibis Jimenez UR MICRO IND NOT INDICATED Normal [facility] Comment on above: Performed By: #### C VDTBH #### [facility] [address] [place] [address] Dr. Ibis Jimenez Urobilinogen Qn (U) 0.2 {Dinorah'U}/dL Normal 0.2 - 1. 0 [facility] Comment on above: Performed By: #### C VDTB #### [facility] [address] [place] [address] Dr. Ibis Jimenez CBC AUTO DIFFon 10-03-2021 BASO # 0.0 103/ul Normal 0.0-0.1 [facility] Comment on above: Performed By: #### B MP #### [facility] [address] [place] [address] Dr. Ibis Jimenez Basophils/100 WBC (Bld) 0.3 % Normal 0.2-2.0 [facility] Comment on above: Performed By: #### B MP #### [facility] [address] [place] [address] Dr. Ibis Jimenez EO # 0.3 103/ul Normal 0.0-0.[address] [facility] Comment on above: Performed By: #### B MP #### [facility] [address] [place] [address] Dr. Ibis Jimenez Eosinophils/100 WBC (Bld) 4.1 % Normal 0.9-7.[address] [facility] Comment on above: Performed By: #### B MP #### [facility] [address] [place] [address] Dr. Ibis Jimenez Erythrocyte distribution width (RBC) [Ratio] 13.2 % Normal 11.0-15.0 [facility] Comment on above: Performed By: #### B MP #### [facility] [address] [place] [address] Dr. Ibis Jimenez Hematocrit (Bld) [Volume fraction] 35.7 % Critically low 36.0-48.0 [facility] Comment on above: Performed By: #### B MP #### [facility] [address] [place] [address] Dr. Ibis Jimenez Hemoglobin (Bld) [Mass/Vol] 11.6 g/dL Critically low 12.0-16.0 [facility] Comment on above: Performed By: #### B MP #### [facility] [address] [place] [address] Dr. Ibis Jimenez IG # 0.02 10e3/ul Normal 0.00-0.03 [facility] Comment on above: Performed By: #### B MP #### [facility] [address] [place] [address] Dr. Ibis Jimenez IG % 0.3 % Normal 0.0-0.5 [facility] Comment on above: Performed By: #### B MP #### [facility] [address] [place] [address] Dr. Ibis Jimenez LYMPH # 1.5 103/ul Normal 1.2-3.8 [facility] Comment on above: Performed By: #### B MP #### [facility] [address] [place] [address] Dr. Ibis Jimenez Lymphocytes/100 WBC (Bld) 24.3 % Normal 20.5-60.[address] [facility] Comment on above: Performed By: #### B MP #### [facility] [address] [place] [address] Dr. Ibis Jimenez MANUAL DIFF REQ NO Normal [facility] Comment on above: Performed By: #### B MP #### [facility] [address] [place] [address] Dr. Ibis Jimenez MCH (RBC) [Entitic mass] 28.9 pg Normal 26.7-34.0 [facility] Comment on above: Performed By: #### B MP #### [facility] [address] [place] [address] Dr. Ibis Jimenez MCHC (RBC) [Mass/Vol] 32.5 g/dL Normal 29.9-35.2 [facility] Comment on above: Performed By: #### B MP #### [facility] [address] [place] [address] Dr. Ibis Jimenez MCV (RBC) [Entitic vol] 89.0 fL Normal 81.0-99.0 [facility] Comment on above: Performed By: #### B MP #### [facility] [address] [place] [address] Dr. Ibis Jimenez MONO # 0.5 103/ul Normal 0.3-0.8 [facility] Comment on above: Performed By: #### B MP #### [facility] [address] [place] [address] Dr. Ibis Jimenez Monocytes/100 WBC (Bld) 7.3 % Normal 1.7-12.0 [facility] Comment on above: Performed By: #### B MP #### [facility] [address] [place] [address] Dr. Ibis Jimenez NEUT # 4.0 103/ul Normal 1.4-6.5 [facility] Comment on above: Performed By: #### B MP #### [facility] [address] [place] [address] Dr. Ibis Jimenez Neutrophils/100 WBC (Bld) 63.7 % Normal 43.0-75.[address] [facility] Comment on above: Performed By: #### B MP #### [facility] [address] [place] [address] Dr. Ibis Jimenez Platelet mean volume (Bld) [Entitic vol] 9.7 fL Normal 9.5-13.5 [facility] Comment on above: Performed By: #### B MP #### [facility] [address] [place] [address] Dr. Ibis Jimenez PLT 237 103/ul Normal 150-450 [facility] Comment on above: Performed By: #### B MP #### [facility] [address] [place] [address] Dr. Ibis Jimenze RBC 4.01 106/ul Critically low 4.20-5.40 [facility] Comment on above: Performed By: #### B MP #### [facility] [address] [place] [address] Dr. Ibis Jimenez WBC 6.3 103/ul Normal 4.0-11.0 [facility] Comment on above: Performed By: #### B MP #### [facility] [address] [place] [address] Dr. Ibis Jimenez LACTATE/LACTIC ACIDon 2021 Lactate [Moles/Vol] 1.2 mmol/L Normal 0.4-1.9 [facility] Comment on above: Performed By: #### A MM #### [facility] [address] [place] [address] Dr. Ibis Jimenez BUNon 10-02-2021 Urea nitrogen [Mass/Vol] 7.0 mg/dL Normal 7.0-18.0 [facility] Comment on above: Performed By: #### C VDTB #### [facility] [address] [place] [address] Dr. Ibis Jimenez CBC AUTO DIFFon 10-02-2021 BASO # 0.0 103/ul Normal 0.0-0.1 [facility] Comment on above: Performed By: #### A MM #### [facility] [address] [place] [address] Dr. Ibis Jimenez Basophils/100 WBC (Bld) 0.2 % Normal 0.2-2.[address] [facility] Comment on above: Performed By: #### A MM #### [facility] [address] [place] [address] Dr. Ibis Jimenez EO # 0.0 103/ul Normal 0.0-0.[address] [facility] Comment on above: Performed By: #### A MM #### [facility] [address] [place] [address] Dr. Ibis Jimenez Eosinophils/100 WBC (Bld) 0.3 % Critically low 0.9-7.[address] [facility] Comment on above: Performed By: #### A MM #### [facility] [address] [place] [address] Dr. Ibis Jimenez Erythrocyte distribution width (RBC) [Ratio] 12.7 % Normal 11.0-15.[address] [facility] Comment on above: Performed By: #### A MM #### [facility] [address] [place] [address] Dr. Ibis Jimenez Hematocrit (Bld) [Volume fraction] 43.4 % Normal 36.0-48.[address] [facility] Comment on above: Performed By: #### A MM #### [facility] [address] [place] [address] Dr. Ibis Jimenez Hemoglobin (Bld) [Mass/Vol] 14.6 g/dL Normal 12.0-16.[address] [facility] Comment on above: Performed By: #### A MM #### [facility] [address] [place] [address] Dr. Ibis Jimenez IG # 0.03 10e3/ul Normal 0.00-0.[address] [facility] Comment on above: Performed By: #### A MM #### [facility] [address] [place] [address] Dr. Ibis Jimenez IG % 0.3 % Normal 0.0-0.[address] [facility] Comment on above: Performed By: #### A MM #### [facility] [address] [place] [address] Dr. Ibis Jimenez LYMPH # 1.2 103/ul Normal 1.2-3.[address] [facility] Comment on above: Performed By: #### A MM #### [facility] [address] [place] [address] Dr. Ibis Jimenez Lymphocytes/100 WBC (Bld) 11.6 % Critically low 20.5-60.[address] [facility] Comment on above: Performed By: #### A MM #### [facility] [address] [place] [address] Dr. Ibis Jimenez MANUAL DIFF REQ NO Normal [facility] Comment on above: Performed By: #### A MM #### [facility] [address] [place] [address] Dr. Ibis Jimenez MCH (RBC) [Entitic mass] 28.5 pg Normal 26.7-34.0 [facility] Comment on above: Performed By: #### A MM #### [facility] [address] [place] [address] Dr. Ibis Jimenez MCHC (RBC) [Mass/Vol] 33.6 g/dL Normal 29.9-35.[address] [facility] Comment on above: Performed By: #### A MM #### [facility] [address] [place] [address] Dr. Ibis Jimenez MCV (RBC) [Entitic vol] 84.6 fL Normal 81.0-99.0 [facility] Comment on above: Performed By: #### A MM #### [facility] [address] [place] [address] Dr. Ibis Jimenez MONO # 0.6 103/ul Normal 0.3-0.[address] [facility] Comment on above: Performed By: #### A MM #### [facility] [address] [place] [address] Dr. Ibis Jimenez Monocytes/100 WBC (Bld) 5.9 % Normal 1.7-12.0 [facility] Comment on above: Performed By: #### A MM #### [facility] [address] [place] [address] Dr. Ibis Jimenez NEUT # 8.2 103/ul Critically high 1.4-6.5 [facility] Comment on above: Performed By: #### A MM #### [facility] [address] [place] [address] Dr. Ibis Jimenez Neutrophils/100 WBC (Bld) 81.7 % Critically high 43.0-75.[address] [facility] Comment on above: Performed By: #### A MM #### [facility] [address] [place] [address] Dr. Ibis Jimenez Platelet mean volume (Bld) [Entitic vol] 9.8 fL Normal 9.5-13.5 [facility] Comment on above: Performed By: #### A MM #### [facility] [address] [place] [address] Dr. Ibis Jimenez PLT 264 103/ul Normal 150-[address] [facility] Comment on above: Performed By: #### A MM #### [facility] [address] [place] [address] Dr. Ibis Jimenez RBC 5.13 106/ul Normal 4.20-5.40 [facility] Comment on above: Performed By: #### A MM #### [facility] [address] [place] [address] Dr. Ibis Jimenez WBC 10.1 103/ul Normal 4.0-11.0 [facility] Comment on above: Performed By: #### A MM #### [facility] [address] [place] [address] Dr. Ibis Jimenez CREATININEon 10-02-2021 Creatinine [Mass/Vol] 0.69 mg/dL Normal 0.55-1.02 [facility] Comment on above: Performed By: #### C VDTBH #### [facility] [address] [place] [address] Dr. Ibis Jimenez EGFR-AF [facility] >60 Normal >=60 [facility] Comment on above: Performed By: #### C VDTBH #### [facility] [address] [place] [address] Dr. Ibis Jimenez EGFR-NON AF [facility] >60 Normal >=60 [facility] Comment on above: Performed By: #### C VDTBH #### [facility] [address] [place] [address] Dr. Ibis Jimenez CBC AUTO DIFFon 10-01-2021 BASO # 0.0 103/ul Normal 0.0-0.1 [facility] Comment on above: Performed By: #### A MM #### [facility] [address] [place] [address] Dr. Ibis Jimenez Basophils/100 WBC (Bld) 0.3 % Normal 0.2-2.0 [facility] Comment on above: Performed By: #### A MM #### [facility] [address] [place] [address] Dr. Ibis Jimenez EO # 0.1 103/ul Normal 0.0-0.7 [facility] Comment on above: Performed By: #### A MM #### [facility] [address] [place] [address] Dr. Ibis Jimenez Eosinophils/100 WBC (Bld) 1.9 % Normal 0.9-7.0 [facility] Comment on above: Performed By: #### A MM #### [facility] [address] [place] [address] Dr. Ibis Jimenez Erythrocyte distribution width (RBC) [Ratio] 12.7 % Normal 11.0-15.0 [facility] Comment on above: Performed By: #### A MM #### [facility] [address] [place] [address] Dr. Ibis Jimenez Hematocrit (Bld) [Volume fraction] 38.1 % Normal 36.0-48.0 [facility] Comment on above: Performed By: #### A MM #### [facility] [address] [place] [address] Dr. Ibis Jimenez Hemoglobin (Bld) [Mass/Vol] 12.7 g/dL Normal 12.0-16.0 [facility] Comment on above: Performed By: #### A MM #### [facility] [address] [place] [address] Dr. Ibis Jimenez IG # 0.02 10e3/ul Normal 0.00-0.03 [facility] Comment on above: Performed By: #### A MM #### [facility] [address] [place] [address] Dr. Ibis Jimenez IG % 0.3 % Normal 0.0-0.[address] [facility] Comment on above: Performed By: #### A MM #### [facility] [address] [place] [address] Dr. Ibis Jimenez LYMPH # 1.9 103/ul Normal 1.2-3.8 [facility] Comment on above: Performed By: #### A MM #### [facility] [address] [place] [address] Dr. Ibis Jimenez Lymphocytes/100 WBC (Bld) 30.5 % Normal 20.5-60.0 [facility] Comment on above: Performed By: #### A MM #### [facility] [address] [place] [address] Dr. Ibis Jimenez MANUAL DIFF REQ NO Normal [facility] Comment on above: Performed By: #### A MM #### [facility] [address] [place] [address] Dr. Ibis Jimenez MCH (RBC) [Entitic mass] 28.3 pg Normal 26.7-34.0 [facility] Comment on above: Performed By: #### A MM #### [facility] [address] [place] [address] Dr. Ibis Jimenez MCHC (RBC) [Mass/Vol] 33.3 g/dL Normal 29.9-35.2 [facility] Comment on above: Performed By: #### A MM #### [facility] [address] [place] [address] Dr. Ibis Jimenez MCV (RBC) [Entitic vol] 85.0 fL Normal 81.0-99.0 [facility] Comment on above: Performed By: #### A MM #### [facility] [address] [place] [address] Dr. Ibis Jimenez MONO # 0.3 103/ul Normal 0.3-0.8 [facility] Comment on above: Performed By: #### A MM #### [facility] [address] [place] [address] Dr. Ibis Jimenez Monocytes/100 WBC (Bld) 5.2 % Normal 1.7-12.[address] [facility] Comment on above: Performed By: #### A MM #### [facility] [address] [place] [address] Dr. Ibis Jimenez NEUT # 3.9 103/ul Normal 1.4-6.[address] [facility] Comment on above: Performed By: #### A MM #### [facility] [address] [place] [address] Dr. Ibis Jimenez Neutrophils/100 WBC (Bld) 61.8 % Normal 43.0-75.0 [facility] Comment on above: Performed By: #### A MM #### [facility] [address] [place] [address] Dr. Ibis Jimenez Platelet mean volume (Bld) [Entitic vol] 9.7 fL Normal 9.5-13.5 [facility] Comment on above: Performed By: #### A MM #### [facility] [address] [place] [address] Dr. Ibis Jimenez PLT 255 103/ul Normal 150-450 [facility] Comment on above: Performed By: #### A MM #### [facility] [address] [place] [address] Dr. Ibis Jimenez RBC 4.48 106/ul Normal 4.20-5.[address] [facility] Comment on above: Performed By: #### A MM #### [facility] [address] [place] [address] Dr. Ibis Jimenez WBC 6.3 103/ul Normal 4.0-11.0 [facility] Comment on above: Performed By: #### A MM #### [facility] [address] [place] [address] Dr. Ibis Jimenez PREG HCG QUALon 10-01-2021 , QUAL Negative Normal NEGATIVE [facility] Comment on above: Performed By: #### M DAVID #### [facility] [address] [place] [address] Dr. Ibis Jimenez Covid-19 PCR (CVDTB)on 09-20 [...] for this test is supported by the [place] Supervisor of Health and Human Service's (HHS's) declaration [...] B MP #### [facility] [address] [place] [address] Dr. Ibis Jimenez TYPE AND SCREENon 09-29-2021 TYPE AND SCREEN Negative Normal [facility] Comment on above: Performed By: #### B MP #### [facility] [address] [place] [address] Dr. Ibis Jimenez Covid-19 PCR (CVDTB)on SARS-CoV-2 [...] for this test is supported by the [employer] of Health and Human Service's (HHS's) declaration [...] C VDTBH #### [facility] [address] [place] [address] Dr. Ibis Jimenez TYPE AND SCREENon 09-21-2021 TYPE AND SCREEN Negative Normal [facility] Comment on above: Performed By: #### B MP #### [facility] [address] [place] [address] Dr. Ibis Jimenez CHLAMYDIA/GONOCOCCUS SAURABH (SW AB/URINE/PAPon 08-17-2021 Chlamydia trachomatis, SAURABH Negative Normal Negative [facility] Comment on above: Performed By: #### A CET, SALYC #### [facility] [address] [place] [address] Dr. Ibis Jimenez Neisseria gonorrhoeae, SAURABH Negative Normal Negative [facility] Comment on above: Performed By: #### A CET, SALYC #### [facility] [address] [place] [address] Dr. Ibis Jimenez CBC AUTO DIFFon 08-14-2021 BASO # 0.0 103/ul Normal 0.0-0.1 [facility] Comment on above: Performed By: #### C VDTBH #### [facility] [address] [place] [address] Dr. Ibis Jimenez Basophils/100 WBC (Bld) 0.3 % Normal 0.2-2.0 [facility] Comment on above: Performed By: #### C VDTBH #### [facility] [address] [place] [address] Dr. Ibis Jimenez EO # 0.2 103/ul Normal 0.0-0.7 [facility] Comment on above: Performed By: #### C VDTBH #### [facility] [address] [place] [address] Dr. Ibis Jimenez Eosinophils/100 WBC (Bld) 2.5 % Normal 0.9-7.0 [facility] Comment on above: Performed By: #### C VDTBH #### [facility] [address] [place] [address] Dr. Ibis Jimenez Erythrocyte distribution width (RBC) [Ratio] 13.0 % Normal 11.0-15.0 [facility] Comment on above: Performed By: #### C VDTBH #### [facility] [address] [place] [address] Dr. Ibis Jimenez Hematocrit (Bld) [Volume fraction] 38.1 % Normal 36.0-48.0 [facility] Comment on above: Performed By: #### C VDTBH #### [facility] [address] [place] [address] Dr. Ibis Jimenez Hemoglobin (Bld) [Mass/Vol] 12.8 g/dL Normal 12.0-16.0 [facility] Comment on above: Performed By: #### C VDTBH #### [facility] [address] [place] [address] Dr. Ibis Jimenez IG # 0.02 10e3/ul Normal 0.00-0.03 [facility] Comment on above: Performed By: #### C VDTBH #### [facility] [address] [place] [address] Dr. Ibis Jimenez IG % 0.3 % Normal 0.0-0.5 [facility] Comment on above: Performed By: #### C VDTBH #### [facility] [address] [place] [address] Dr. Ibis Jimenez LYMPH # 1.5 103/ul Normal 1.2-3.8 [facility] Comment on above: Performed By: #### C VDTBH #### [facility] [address] [place] [address] Dr. Ibis Jimenez Lymphocytes/100 WBC (Bld) 22.5 % Normal 20.5-60.0 [facility] Comment on above: Performed By: #### C VDTBH #### [facility] [address] [place] [address] Dr. Ibis Jimenez MANUAL DIFF REQ NO Normal [facility] Comment on above: Performed By: #### C VDTBH #### [facility] [address] [place] [address] Dr. Ibis Jimenez MCH (RBC) [Entitic mass] 28.6 pg Normal 26.7-34.0 [facility] Comment on above: Performed By: #### C VDTBH #### [facility] [address] [place] [address] Dr. Ibis Jimenez MCHC (RBC) [Mass/Vol] 33.6 g/dL Normal 29.9-35.2 [facility] Comment on above: Performed By: #### C VDTBH #### [facility] [address] [place] [address] Dr. Ibis Jimenez MCV (RBC) [Entitic vol] 85.0 fL Normal 81.0-99.[address] [facility] Comment on above: Performed By: #### C VDTBH #### [facility] [address] [place] [address] Dr. Ibis Jimenez MONO # 0.4 103/ul Normal 0.3-0.[address] [facility] Comment on above: Performed By: #### C VDTBH #### [facility] [address] [place] [address] Dr. Ibis Jimenez Monocytes/100 WBC (Bld) 6.3 % Normal 1.7-12.0 [facility] Comment on above: Performed By: #### C VDTBH #### [facility] [address] [place] [address] Dr. Ibis Jimenez NEUT # 4.6 103/ul Normal 1.4-6.[address] [facility] Comment on above: Performed By: #### C VDTBH #### [facility] [address] [place] [address] Dr. Ibis Jimenez Neutrophils/100 WBC (Bld) 68.1 % Normal 43.0-75.[address] [facility] Comment on above: Performed By: #### C VDTBH #### [facility] [address] [place] [address] Dr. Ibis Jimenez Platelet mean volume (Bld) [Entitic vol] 9.8 fL Normal 9.5-13.[address] [facility] Comment on above: Performed By: #### C VDTBH #### [facility] [address] [place] [address] Dr. Ibis Jimenez PLT 243 103/ul Normal 150-[address] [facility] Comment on above: Performed By: #### C VDTBH #### [facility] [address] [place], [place] [address] Dr. Ibis Jimenez RBC 4.48 106/ul Normal 4.20-5.40 [facility] Comment on above: Performed By: #### C VDTBH #### [facility] [address] [place], [place] [address] Dr. Ibis Jimenez WBC 6.7 103/ul Normal 4.0-11.0 [facility] Comment on above: Performed By: #### C VDTBH #### [facility] [address] [place] [id number] Ibis Jimenez CT ABD/PELVIS WO CONon [...] Bilirubin Ql (U) SMALL Abnormal NEGATIVE [facility] Comment on above: Performed By: #### B MP #### [facility] [address] [place] [address] Dr. Ibis Jimenez Clarity (U) CLEAR Normal CLEAR [facility] Comment on above: Performed By: #### B MP #### [facility] [address] [place] [address] Dr. Ibis Jimenez Color (U) YELLOW Normal YELLOW [facility] Comment on above: Performed By: #### B MP #### [facility] [address] [place] [address] Dr. Ibis RODRIGUEZ A micrscopic examination will be performed if indicated. Normal [facility] Comment on above: Performed By: #### B MP #### [facility] [address] [place] [address] Dr. Ibis Jimenez Glucose Ql (U) Negative Normal NEGATIVE [facility] Comment on above: Performed By: #### B MP #### [facility] [address] [place] [address] Dr. Ibis Jimenez Hemoglobin Ql (U) SMALL Abnormal NEGATIVE [facility] Comment on above: Performed By: #### B MP #### [facility] [address] [place] [address] Dr. Ibis Jimenez Ketones Ql (U) TRACE Abnormal NEGATIVE [facility] Comment on above: Performed By: #### B MP #### [facility] [address] [place] [address] Dr. Ibis Jimenez LEUKOCYTES Negative Normal NEGATIVE [facility] Comment on above: Performed By: #### B MP #### [facility] [address] [place] [address] Dr. Ibis Jimenez Nitrite Ql (U) Negative Normal NEGATIVE [facility] Comment on above: Performed By: #### B MP #### [facility] [address] [place] [address] Dr. Ibis Jimenez pH (U) 5.5 [pH] Normal 5-9 [facility] Comment on above: Performed By: #### B MP #### [facility] [address] [place] [address] [address] Ibis Jimenez SPEC GRAVITY >=1.030 Abnormal 1.005-<=1.02 5 [facility] Comment on above: Performed By: #### B MP #### [facility] [address] [place] [address] [address] Ibis Jimenez UA PROTEIN TRACE Normal NEGATIVE/ TRACE [facility] Comment on above: Performed By: #### B MP #### [facility] [address] [place] [address] [address] Ibis Jimenez UR MICRO IND INDICATED Normal [facility] Comment on above: Performed By: #### B MP #### [facility] [address] [place] [address] Dr. Ibis Jimenez Urobilinogen Qn (U) 1.0 {Dinorah'U}/dL Normal 0.2 - 1. 0 [facility] Comment on above: Performed By: #### B MP #### [facility] [address] [place] [address] [address] Ibis Jimenez URon 08-14-2021 , QUAL Negative Normal NEGATIVE [facility] Comment on above: Performed By: #### B MP #### [facility] [address] [place] [address] Dr. Ibis Jimenez PROF CHEM 8 (BAS METB)on Anion gap [Moles/Vol] 15.3 mmol/L Normal [facility] Comment on above: Performed By: #### B MP #### [facility] [address] [place] [address] [address] Ibis Jimenez Calcium [Mass/Vol] 8.4 mg/dL Critically low 8.5-10.1 [facility] Comment on above: Performed By: #### B MP #### [facility] [address] [place] [address] [address] Ibis Jimenez Chloride [Moles/Vol] 106 mmol/L Normal 98-107 [facility] Comment on above: Performed By: #### B MP #### [facility] [address] [place] [address] [address] Ibis Jimenez CO2 [Moles/Vol] 22.3 mmol/L Normal 21.0-32.0 [facility] Comment on above: Performed By: #### B MP #### [facility] [address] [place] [address] [address] Ibis Jimenez Creatinine [Mass/Vol] 0.75 mg/dL Normal 0.55-1.02 [facility] Comment on above: Performed By: #### B MP #### [facility] [address] [place] [address] [address] Ibis Jimenez EGFR-AF [facility] LUCIAN >60 Normal >=60 [facility] Comment on above: Performed By: #### B MP #### [facility] [address] [place] [address] [address] Ibis Jimenez EGFR-NON AF [facility] >60 Normal >=60 [facility] Comment on above: Performed By: #### B MP #### [facility] [address] [place] [address] [address] Ibis Jimenez Glucose [Mass/Vol] 107 mg/dL Critically high 74-106 [facility] Comment on above: Performed By: #### B MP #### [facility] [address] [place] [address] [address] Ibis Jimenez Potassium [Moles/Vol] 3.6 mmol/L Normal 3.5-5.1 [facility] Comment on above: Performed By: #### B MP #### [facility] [address] [place] [address] [address] Ibis Jimenez Sodium [Moles/Vol] 140 mmol/L Normal 136-145 [facility] Comment on above: Performed By: #### B MP #### [facility] [address] [place] [address] [address] Ibis Jimenez Urea nitrogen [Mass/Vol] 13.0 mg/dL Normal 7.0-18.0 [facility] Comment on above: Performed By: #### B MP #### [facility] [address] [place] [address] Dr. Ibis Jimenez Urea nitrogen/Creatinine [Mass ratio] 17.3 mg/mg Normal [facility] Comment on above: Performed By: #### B MP #### [facility] [address] [place] [address] Dr. Ibis Jimenez URINE MICROSCOPIC ONLYon BACTERIA TRACE Abnormal NONE SEEN [facility] Comment on above: Performed By: #### B MP #### [facility] [address] [place] [address] Dr. Ibis Jimenez Bacteria identified Cx Nom (U) NOT INDICATED Normal [facility] Comment on above: Performed By: #### B MP #### [facility] [address] [place] [address] Dr. Ibis Jimenez CAST NONE SEEN Normal NONE SEEN [facility] Comment on above: Performed By: #### B MP #### [facility] [address] [place] [address] Dr. Ibis Jimenez Crystals LM Nom (Urine sed) NONE SEEN Normal NONE SEEN [facility] Comment on above: Performed By: #### B MP #### [facility] [address] [place] [address] Dr. Ibis Jimenez Epithelial cells LM Ql (Urine sed) MANY Abnormal NONE SEEN /RARE [facility] Comment on above: Performed By: #### B MP #### [facility] [address] [place] [address] Dr. Ibis Jimenez MUCOUS SMALL Abnormal NONE SEEN [facility] Comment on above: Performed By: #### B MP #### [facility] [address] [place] [address] Dr. Ibis Jimenez RBC 2-5 Abnormal 0-[address] [facility] Comment on above: Performed By: #### B MP #### [facility] [address] [place] [address] Dr. Ibis Jimenez WBC 2-5 Abnormal NONE SEEN [facility] Comment on above: Performed By: #### B MP #### [facility] [address] [place] [address] Dr. Ibis Jimenez CBC Auto DifferentialOrdered By: Vielka Ching on 12-24-2020 [employer] # 0.44 [employer] [facility] Work Phone: Absolute Immature Granulocyte 0.05 [employer] Work Phone: Absolute Lymph # 2.48 [employer] [facility] Work Phone: Absolute [place] # 0.55 [employer] [facility] Work Phone: Basophils (Bld) [#/Vol] 10*3/uL [employer] Work Phone: Basophils/100 WBC (Bld) 0 % 0 - 2 % [employer] Phone: Differential Type NOT REPORTED [employer] Phone: Eosinophils/100 WBC (Bld) 5 % High 1 - 4 % [employer] Phone: Hematocrit (Bld) [Volume fraction] 37.4 % 36.3 - 47.1 % [employer] Work Phone: Hemoglobin.gastrointes tinal spec 1 Ql (Stl) 12.3 g/dL 11.9 - 15.1 g/dL [employer] Phone: Immature granulocytes/100 WBC (Bld) 1 % High 0 [employer] Phone: Interpretation and review of laboratory results Abnormal [employer] Phone: Lymphocytes/100 WBC (Bld) 30 % 24 - 43 % [employer] Work Phone: MCH (RBC) [Entitic mass] 28.5 pg 25.2 - 33.5 pg [employer] Phone: MCHC (RBC) [Mass/Vol] 32.9 g/dL 28.4 - 34.8 g/dL [employer] Phone: MCV (RBC) [Entitic vol] 86.8 fL 82.6 - 102.9 fL [employer] Work Phone: Monocytes/100 WBC (Bld) 7 % 3 - 12 % [employer] Phone: NRBC Automated 0.0 0.0 per 100 WBC [employer] Phone: Platelet distribution width (Bld) [Ratio] 12.7 % 11.8 - 14.4 % [employer] Phone: Platelet Estimate NOT REPORTED [employer] Phone: Platelet mean volume (Bld) [Entitic vol] 9.4 fL 8.1 - 13.5 fL [employer] Phone: Platelets (Bld) [#/Vol] 252 10*3/uL [employer] Phone: RBC (Bld) [#/Vol] 4.31 10*6/uL 3.95 - 5.1 1 m/uL [employer] Phone: RBC (Bld) [#/Vol] NOT REPORTED [employer] Phone: Segmented neutrophils/100 WBC (Bld) 57 % 36 - 65 % [employer] Phone: Segs Absolute 4.78 [employer] Work Phone: WBC (Bld) [#/Vol] 8.3 10*3/uL [employer] Phone: WBC (Bld) [#/Vol] NOT REPORTED [employer] Phone: [employer] Work Phone: CBC with Diffon 12-24-2020 Abs. Basophil <0.03 Normal 0.00-0.20 [facility] Comment on above: Performed By: #### C MPX, CDP #### [facility] [address] [place] [address] Neurosurgical Nurse Practitioner: Souleymane Pineda MD Abs.Imm.Granulocyte 0.05 k/uL Normal 0.00-0.30 [facility] Comment on above: Performed By: #### C MPX, CDP #### [facility] [address] [place], [place] [address] Neurosurgical Nurse Practitioner: Souleymane Pineda MD Abs.Neutrophil (Seg) 4.78 k/uL Normal 1.50-8.10 [facility] Comment on above: Performed By: #### C MPX, CDP #### [facility] [address] [place], [place] [address] Neurosurgical Nurse Practitioner: Souleymane Pineda MD Basophils/100 WBC (Bld) 0 % Normal 0-2 [facility] Comment on above: Performed By: #### C MPX, CDP #### [address] [place], [place] [address] Neurosurgical Nurse Practitioner: Souleymane Pineda MD Eosinophils (Bld) [#/Vol] 0.44 10*3/uL Normal 0.00-0.44 [facility] Comment on above: Performed By: #### C MPX, CDP #### [address] [place], [place] [address] Neurosurgical Nurse Practitioner: Souleymane Pineda MD Eosinophils/100 WBC (Bld) 5 % High 1-4 [facility] Comment on above: Performed By: #### C MPX, CDP #### [address] [place], [facility] Neurosurgical Nurse Practitioner: Souleymane Pineda MD Erythrocyte distribution width (RBC) [Ratio] 12.7 % Normal 11.8-14.4 [facility] Comment on above: Performed By: #### C MPX, CDP #### [address] [place], [facility] Neurosurgical Nurse Practitioner: Souleymane Pineda MD Hematocrit (Bld) [Volume fraction] 37.4 % Normal 36.3-47.1 [facility] Comment on above: Performed By: #### C MPX, CDP #### [facility] [address] [place], [place] [id number] Neurosurgical Nurse Practitioner: Souleymane Pineda MD Hemoglobin (Bld) [Mass/Vol] 12.3 g/dL Normal 11.9-15.1 [facility] Comment on above: Performed By: #### C MPX, CDP #### [facility] [address] [place] [address] Neurosurgical Nurse Practitioner: Souleymane Pineda MD Immature granulocytes/100 WBC (Bld) 1 % High 0 [facility] Comment on above: Performed By: #### C MPX, CDP #### [facility] [address] [place] [address] Neurosurgical Nurse Practitioner: Souleymane Pineda MD Lymphocytes (Bld) [#/Vol] 2.48 10*3/uL Normal 1.10-3.70 [facility] Comment on above: Performed By: #### C MPX, CDP #### [address] [place], [place] [id number] Neurosurgical Nurse Practitioner: Souleymane Pineda MD Lymphocytes/100 WBC (Bld) 30 % Normal 24-43 [facility] Comment on above: Performed By: #### C MPX, CDP #### [address] [place] [address] Neurosurgical Nurse Practitioner: Souleymane Pineda MD MCH (RBC) [Entitic mass] 28.5 pg Normal 25.2-33.5 [facility] Comment on above: Performed By: #### C MPX, CDP #### [address] [place] [address] Neurosurgical Nurse Practitioner: Souleymane Pineda MD MCHC (RBC) [Mass/Vol] 32.9 g/dL Normal 28.4-34.8 [facility] Comment on above: Performed By: #### C MPX, CDP #### [address] [place], [place] [id number] Neurosurgical Nurse Practitioner: Souleymane Pineda MD MCV (RBC) [Entitic vol] 86.8 fL Normal 82.6-102.9 [facility] Comment on above: Performed By: #### C MPX, CDP #### [facility] [address] [place], [place] [id number] Neurosurgical Nurse Practitioner: Souleymane Pineda MD Monocytes (Bld) [#/Vol] 0.55 10*3/uL Normal 0.10-1.20 [facility] Comment on above: Performed By: #### C MPX, CDP #### [address] [place], [place] [id number] Neurosurgical Nurse Practitioner: Souleymane Pineda MD Monocytes/100 WBC (Bld) 7 % Normal 3-12 [facility] Comment on above: Performed By: #### C MPX, CDP #### [address] [place], [place] [id number] Neurosurgical Nurse Practitioner: Souleymane Pineda MD Neutrophil (Seg) 57 % Normal 36-65 [facility] Comment on above: Performed By: #### C MPX, CDP #### [address] [place], [place] [id number] Neurosurgical Nurse Practitioner: Souleymane Pineda MD NRBC Automated 0.0 per 100 WBC Normal 0.0 [facility] Comment on above: Performed By: #### C MPX, CDP #### [address] [place], [place] [id number] Neurosurgical Nurse Practitioner: Souleymane Pineda MD Platelet mean volume (Bld) [Entitic vol] 9.4 fL Normal 8.1-13.5 [facility] Comment on above: Performed By: #### C MPX, CDP #### [address] [place] [address] Neurosurgical Nurse Practitioner: Souleymane Pineda MD Platelets (Bld) [#/Vol] 252 10*3/uL Normal 138-453 [facility] Comment on above: Performed By: #### C MPX, CDP #### [facility] [address] [place], [place] [id number] Neurosurgical Nurse Practitioner: Souleymane Pineda MD RBC (Bld) [#/Vol] 4.31 10*6/uL Normal 3.95-5.11 [facility] Comment on above: Performed By: #### C MPX, CDP #### [facility] [address] [place], [place] [id number] Neurosurgical Nurse Practitioner: Souleymane Pineda MD WBC (Bld) [#/Vol] 8.3 10*3/uL Normal 3.5-11.3 [facility] Comment on above: Performed By: #### C MPX, CDP #### [facility] [address] [place], [place] [id number] Neurosurgical Nurse Practitioner: Souleymane Pineda MD Auto Diff Performed NOT REPORTED Normal [facility] Comment on above: Performed By: #### C MPX, CDP #### [facility] [address] [place], [place] [id number] Neurosurgical Nurse Practitioner: Souleymane Pineda MD Platelet Comment NOT REPORTED Normal [facility] Comment on above: Performed By: #### C MPX, CDP #### [facility] [address] [place] [address] Neurosurgical Nurse Practitioner: Souleymane Pineda MD RBC morphology finding Nom (Bld) NOT REPORTED Normal [facility] Comment on above: Performed By: #### C MPX, CDP #### [facility] [address] [place], [place] [id number] Neurosurgical Nurse Practitioner: Souleymane Pineda MD WBC Morphology NOT REPORTED Normal [facility] Comment on above: Performed By: #### C MPX, CDP #### [facility] [address] [place], [place] [address] Neurosurgical Nurse Practitioner: Souleymane Pineda MD CT HEAD WO CONTRASTon [...] the orbits demonstrate no acute abnormality. SINUSES: Ehwg-jw-momhktke paranasal sinus mucosal thickening. SOFT TISSUES/SKULL: No acute abnormality of the visualized skull or soft tissues. IMPRESSION: No acute intracranial abnormality. Interpreted by: Edwin Bentley MD Signed by: Edwin Bentley MD 12/24/20 Final result Normal [facility] CT Head WO ContrastOrdered B y: Vielka Ching on 12-24-2020 No acute intracranial abnormality. [facility] Work Phone: EXAMINATION: CT OF THE [...] the orbits demonstrate no acute abnormality. SINUSES: Rxnj-uq-udoiowkc paranasal sinus mucosal thickening. SOFT TISSUES/SKULL: No acute abnormality of the visualized skull or soft tissues. [employer] Phone: Dimitri, [employer] Incoming Radiant Results From [employer] - 12/24/2020 8:49 PM EDT EXAMINATION: CT [...] the orbits demonstrate no acute abnormality. SINUSES: Wcjq-pi-rhyxdykp paranasal sinus mucosal thickening. SOFT TISSUES/SKULL: No acute abnormality of the visualized skull or soft tissues. IMPRESSION: No acute intracranial abnormality. [facility] Phone: [facility] Phone: Comp Metabolic Pr/rfx MGon 1 02-24-2020 Bilirubin [Mass/Vol] mg/dL Low 0.3-1.2 [facility] Comment on above: Performed By: #### C MPX, CDP #### [facility] [address] [place] [address] Neurosurgical Nurse Practitioner: Souleymane Pineda MD (cont.) Normal [facility] Comment on above: Result Comment: Aver age GFR for 20-29 years old: 116 mL/min/1.73sq m Chronic Kidney Disease: <60 mL/min/1.73sq m Kidney failure: <15 mL/min/1.73sq m eGFR calculated using average adult body mass. Additional eGFR calculator available at: http://www.MedSolutions.emids/multiple_crcl_2012.htm Performed By: #### C MPX, CDP #### [facility] [address] [place] [address] Neurosurgical Nurse Practitioner: Souleymane Pineda MD Albumin [Mass/Vol] 4.0 g/dL Normal 3.5-5.2 [facility] Comment on above: Performed By: #### C MPX, CDP #### [facility] [address] [place], [place] [id number] Neurosurgical Nurse Practitioner: Souleymane Pineda MD Albumin/Glob Ratio 1.5 Normal 1.0-2.5 [facility] Comment on above: Performed By: #### C MPX, CDP #### [facility] [address] [place], [place] [id number] Neurosurgical Nurse Practitioner: Souleymane Pineda MD Alkaline Phos 90 U/L Normal 35-104 [facility] Comment on above: Performed By: #### C MPX, CDP #### [address] [place], [place] [id number] Neurosurgical Nurse Practitioner: Souleymane Pineda MD ALT [Catalytic activity/Vol] 40 U/L High 5-33 [facility] Comment on above: Performed By: #### C MPX, CDP #### [facility] [address] [place] [address] Dr[address] [place], [place] [id number] Neurosurgical Nurse Practitioner: Souleymane Pineda MD Anion gap [Moles/Vol] 11 mmol/L Normal 9-17 [facility] Comment on above: Performed By: #### C MPX, CDP #### [facility] [address] [place] [address] Neurosurgical Nurse Practitioner: Souleymane Pineda MD AST [Catalytic activity/Vol] 19 U/L Normal <32 [facility] Comment on above: Performed By: #### C MPX, CDP #### [facility] [address] [place] [address] Neurosurgical Nurse Practitioner: Souleymane Pineda MD BUN/CRE Ratio 15 Normal 9-20 [facility] Comment on above: Performed By: #### C MPX, CDP #### [facility] [address] [place], [place] [id number] Neurosurgical Nurse Practitioner: Souleymane Pineda MD Calcium [Mass/Vol] 8.9 mg/dL Normal 8.6-10.4 [facility] Comment on above: Performed By: #### C MPX, CDP #### [facility] [address] [place] [address] Neurosurgical Nurse Practitioner: Souleymane Pineda MD Chloride [Moles/Vol] 104 mmol/L Normal 98-107 [facility] Comment on above: Performed By: #### C MPX, CDP #### [facility] [address] [place], [place] [id number] Neurosurgical Nurse Practitioner: Souleymane Pineda MD CO2 [Moles/Vol] 24 mmol/L Normal 20-31 [facility] Comment on above: Performed By: #### C MPX, CDP #### [facility] [address] [place], [place] [id number] Neurosurgical Nurse Practitioner: Souleymane Pineda MD Creatinine [Mass/Vol] 0.60 mg/dL Normal 0.50-0.90 [facility] Comment on above: Performed By: #### C MPX, CDP #### [facility] [address] [place], [place] [id number] Neurosurgical Nurse Practitioner: Souleymane Pineda MD GFR, Amer >60 Normal >60 [facility] Comment on above: Performed By: #### C MPX, CDP #### [facility] [address] [place] [address] Neurosurgical Nurse Practitioner: Souleymane Pineda MD GFR,non Amer >60 Normal >60 [facility] Comment on above: Performed By: #### C MPX, CDP #### [facility] [address] [place], [place] [id number] Neurosurgical Nurse Practitioner: Souleymane Pineda MD Glucose [Mass/Vol] 91 mg/dL Normal 70-99 [facility] Comment on above: Performed By: #### C MPX, CDP #### [facility] [address] [place], [place] [id number] Neurosurgical Nurse Practitioner: Souleymane Pineda MD Potassium [Moles/Vol] 4.0 mmol/L Normal 3.7-5.3 [facility] Comment on above: Performed By: #### C MPX, CDP #### [facility] [address] [place], [place] [id number] Neurosurgical Nurse Practitioner: Souleymane Pineda MD Protein [Mass/Vol] 6.7 g/dL Normal 6.4-8.3 [facility] Comment on above: Performed By: #### C MPX, CDP #### [facility] [address] [place], [place] [id number] Neurosurgical Nurse Practitioner: Souleymane Pineda MD Sodium [Moles/Vol] 139 mmol/L Normal 135-144 [facility] Comment on above: Performed By: #### C MPX, CDP #### [facility] [address] [place], [place] [id number] Neurosurgical Nurse Practitioner: Souleymane Pineda MD Staging: Normal [facility] Comment on above: Result Comment: Stag e 1: Some kidney damage normal GFR Stage 2: Mild kidney damage GFR 60-89 Stage 3: Moderate kidney damage GFR 30-59 Stage 4: Severe kidney damage GFR 15-29 Stage 5: Severe kidney damage GFR <15 ESRD - chronic treatment by dialysis or transplant Performed By: #### C MPX, CDP #### [facility] [address] [place], [place] [id number] Neurosurgical Nurse Practitioner: Souleymane Pineda MD Urea nitrogen [Mass/Vol] 9 mg/dL Normal 6-20 [facility] Comment on above: Performed By: #### C MPX, CDP #### [facility] [address] [place] [address] Neurosurgical Nurse Practitioner: Souleymane Pineda MD Comprehensive Metabolic Pane l w/ Reflex to MGOrdered By: Vielka Ching on 12-24-2020 Albumin [Mass/Vol] 4 g/dL 3.5 - 5.2 g/dL [facility] Phone: Albumin/Globulin [Mass ratio] 1.5 {ratio} [facility] Phone: ALP (Bld) [Catalytic activity/Vol] 90 U/L 35 - 104 U/L [facility] Phone: ALT [Catalytic activity/Vol] 40 U/L High 5 - 33 U/L [facility] Phone: Anion gap [Moles/Vol] 11 mmol/L 9 - 17 mmol/L [facility] Phone: AST [Catalytic activity/Vol] 19 U/L <32 [facility] Phone: Bilirubin [Mass/Vol] mg/dL Low 0.3 - 1 .2 mg/dL [facility] Phone: Calcium [Mass/Vol] 8.9 mg/dL 8.6 - 10. 4 mg/dL [facility] Phone: Chloride [Moles/Vol] 104 mmol/L 98 - 10 7 mmol/L [facility] Phone: CO2 [Moles/Vol] 24 mmol/L 20 - 31 mmol/L [facility] Phone: Creatinine [Mass/Vol] 0.6 mg/dL 0.50 - 0.90 mg/dL [facility] Phone: Free PSA/Total PSA [Mass fraction] 6.7 g/dL 6.4 - 8.3 g/dL [facility] Phone: GFR >60 >60 mL/min [facility] [employer] Phone: GFR Non- >60 >60 mL/min [facility] Phone: Glucose [Mass/Vol] 91 mg/dL 70 - 99 mg/dL [facility] Phone: Interpretation and review of laboratory results Abnormal [facility] Phone: Potassium [Moles/Vol] 4.0 mmol/L 3.7 - 5.3 mmol/L [facility] Phone: Sodium [Moles/Vol] 139 mmol/L 135 - 144 mmol/L [facility] Phone: Urea nitrogen (BldV) [Mass/Vol] 9 mg/dL 6 - 20 mg/dL [facility] Phone: Urea nitrogen/Creatinine (Bld) [Mass ratio] 15 [facility] Phone: [facility] Phone: Laboratory - Chemistry and C hemistry - challengeOrdered By: Vielka Ching on 12-24-2020 GFR/1.73 sq M.predicted MDRD (S/P/Bld) [Vol rate/Area] [facility] Phone: Comment on above: Average GFR for 20-2 9 years old: 116 mL/min/1.73sq m Chronic Kidney Disease: <60 mL/min/1.73sq m Kidney failure: <15 mL/min/1.73sq m eGFR calculated using average adult body mass. Additional eGFR calculator available at: http://www.MedSolutions.com/multiple_crcl_2012.htm Stage 1: Some kidney damage normal GFR Stage 2: Mild kidney damage GFR 60-89 Stage 3: Moderate kidney damage GFR 30-59 Stage 4: Severe kidney damage GFR 15-29 Stage 5: Severe kidney damage GFR <15 ESRD - chronic treatment by dialysis or transplant Vital Signs Date Time Vital Sign Value Performing Clinician Facility 04-02-2024 13:07-0500 Body mass index (BMI) [Ratio] 45.73 kg/m2 Zay Roopa DO Work Phone: [facility] 04-02-2024 13:07-0500 Body weight 109.77 kg Zay Roopa DO Work Phone: [facility] 04-02-2024 13:07-0500 Diastolic blood pressure 90 mm[Hg] Zay Roopa DO Work Phone: [facility] 04-02-2024 13:07-0500 Systolic blood pressure 130 mm[Hg] Zay Roopa DO Work Phone: [facility] 03-25-2024 15:21-0500 Body temperature 98.2 [degF] [facility] [employer] 03-25-2024 15:21-0500 Diastolic blood pressure 62 mm[Hg] [facility] 03-25-2024 15:21-0500 Heart rate 86 /min [facility] 03-25-2024 15:21-0500 Respiratory rate 20 /min [facility] [employer] 03-25-2024 15:21-0500 SaO2% (BldA) [Mass fraction] 99 % [facility] 03-25-2024 15:21-0500 Systolic blood pressure 132 mm[Hg] [facility] 03-25-2024 14:58-0500 Body height 154.9 cm [facility] 03-25-2024 14:58-0500 Body mass index (BMI) [Ratio] 45.57 kg/m2 [facility] 03-25-2024 14:58-0500 Body weight 109.4 kg [facility] 03-20-2024 12:15-0500 Body height 154.9 cm Mariah Peña DO Work Phone: [facility] 03-20-2024 12:15-0500 Body mass index (BMI) [Ratio] 45.54 kg/m2 Mariah Peña DO Work Phone: [facility] 03-20-2024 12:15-0500 Body weight 109.32 kg Mariah Peña DO Work Phone: [facility] 03-20-2024 12:15-0500 Diastolic blood pressure 80 mm[Hg] Mariah Peña DO Work Phone: [facility] 03-20-2024 12:15-0500 Heart rate 97 /min Mariah Peña DO Work Phone: [facility] 03-20-2024 12:15-0500 SaO2% (BldA) [Mass fraction] 98 % Mariah Peña DO Work Phone: [facility] 03-20-2024 12:15-0500 Systolic blood pressure 129 mm[Hg] Mariah Peña DO Work Phone: [facility] 03-20-2024 12:07-0500 Body height 154.[address] 03-20-2024 12:07-0500 Body mass index (BMI) [Ratio] 45.54 kg/m2 [address] 03-20-2024 12:07-0500 Body weight 109.[address] 03-18-2024 11:03-0500 Body height 154.9 cm Mundo Martinez MD Work Phone: [facility] 03-18-2024 11:03-0500 Body mass index (BMI) [Ratio] 45.69 kg/m2 Mundo Martinez MD Work Phone: [facility] 03-18-2024 11:03-0500 Body temperature 97.9 [degF] Mundo Martinez MD Work Phone: [facility] 03-18-2024 11:03-0500 Body weight 109.68 kg Mundo Martinez MD Work Phone: [facility] 03-18-2024 11:03-0500 Heart rate 77 /min Mundo Martinez MD Work Phone: [facility] 03-18-2024 11:03-0500 SaO2% (BldA) [Mass fraction] 99 % Mundo Martinez MD Work Phone: [facility] 03-06-2024 10:45-0500 Body mass index (BMI) [Ratio] 45.69 kg/m2 Zay Roopa DO Work Phone: [facility] 03-06-2024 10:45-0500 Body weight 109.68 kg Zay Roopa DO Work Phone: [facility] 03-06-2024 10:45-0500 Diastolic blood pressure 84 mm[Hg] Zay Roopa DO Work Phone: [facility] 03-06-2024 10:45-0500 Systolic blood pressure 122 mm[Hg] Zay Roopa DO Work Phone: [facility] 02-28-2024 11:25-0500 Body mass index (BMI) [Ratio] 47.31 kg/m2 Zay Roopa DO Work Phone: [facility] 02-28-2024 11:25-0500 Body weight 113.58 kg Zay Roopa DO Work Phone: [facility] 02-28-2024 11:25-0500 Diastolic blood pressure 80 mm[Hg] Zay Roopa DO Work Phone: [facility] 02-28-2024 11:25-0500 Systolic blood pressure 126 mm[Hg] Zay Roopa DO Work Phone: [facility] 02-09-2024 10:38-0500 Body height 154.9 cm Lamont Shay MD Work Phone: [facility] 02-09-2024 10:38-0500 Body mass index (BMI) [Ratio] 49.13 kg/m2 Lamont Shay MD Work Phone: [facility] 02-09-2024 10:38-0500 Body temperature 98.01 [degF] Lamont Shay MD Work Phone: [facility] 02-09-2024 10:38-0500 Body weight 117.94 kg Lamont Shay MD Work Phone: [facility] 02-09-2024 10:38-0500 Diastolic blood pressure 58 mm[Hg] Lamont Shay MD Work Phone: [facility] 02-09-2024 10:38-0500 Heart rate 111 /min Lamont Shay MD Work Phone: [facility] 02-09-2024 10:38-0500 Respiratory rate 22 /min Lamont Shay MD Work Phone: [facility] 02-09-2024 10:38-0500 SaO2% (BldA) [Mass fraction] 90 % Lamont Shay MD Work Phone: [facility] 02-09-2024 10:38-0500 Systolic blood pressure 118 mm[Hg] Lamont Shay MD Work Phone: [facility] 01-23-2024 13:28-0500 Body height 154.9 cm Lamont Shay MD Work Phone: [facility] 01-23-2024 13:28-0500 Body mass index (BMI) [Ratio] 52.91 kg/m2 Lamont Shay MD Work Phone: [facility] 01-23-2024 13:28-0500 Body temperature 98.4 [degF] Lamont Shay MD Work Phone: [facility] 01-23-2024 13:28-0500 Body weight 127.01 kg Lamont Shay MD Work Phone: [facility] 01-23-2024 13:28-0500 Diastolic blood pressure 74 mm[Hg] Lamont Shay MD Work Phone: [facility] 01-23-2024 13:28-0500 Heart rate 123 /min Lamont Shay MD Work Phone: [facility] 01-23-2024 13:28-0500 Respiratory rate 26 /min Lamont Shay MD Work Phone: [facility] 01-23-2024 13:28-0500 SaO2% (BldA) [Mass fraction] 87 % Lamont Shay MD Work Phone: [facility] 01-23-2024 13:28-0500 Systolic blood pressure 128 mm[Hg] Lamont Shay MD Work Phone: [facility] 01-22-2024 15:39-0500 Diastolic blood pressure 82 mm[Hg] Infusion 1 Work Phone: [facility] 01-22-2024 15:39-0500 Heart rate 97 /min Infusion 1 Work Phone: [facility] 01-22-2024 15:39-0500 Systolic blood pressure 135 mm[Hg] Infusion 1 Work Phone: [facility] 01-22-2024 13:35-0500 SaO2% (BldA) [Mass fraction] 97 % Infusion 1 Work Phone: [facility] Comment on above: on room air 01-19-2024 11:28-0500 Diastolic blood pressure 75 mm[Hg] Infusion 5 Work Phone: [facility] 01-19-2024 11:28-0500 Heart rate 88 /min Infusion 5 Work Phone: [facility] 01-19-2024 11:28-0500 Systolic blood pressure 126 mm[Hg] Infusion 5 Work Phone: [facility] 01-19-2024 10:00-0500 Body temperature 97.3 [degF] Infusion 5 Work Phone: [facility] 01-17-2024 11:09-0500 Diastolic blood pressure 69 mm[Hg] Infusion 6 Work Phone: [facility] 01-17-2024 11:09-0500 Heart rate 85 /min Infusion 6 Work Phone: [facility] 01-17-2024 11:09-0500 Systolic blood pressure 129 mm[Hg] Infusion 6 Work Phone: [facility] 01-09-2024 09:18-0500 Body height 154.9 cm Lamont Shay MD Work Phone: [facility] 01-09-2024 09:18-0500 Body mass index (BMI) [Ratio] 53.66 kg/m2 Lamont Shay MD Work Phone: [facility] 01-09-2024 09:18-0500 Body temperature 98.01 [degF] Lamont Shay MD Work Phone: [facility] 01-09-2024 09:18-0500 Body weight 128.82 kg Lamont Shay MD Work Phone: [facility] 01-09-2024 09:18-0500 Diastolic blood pressure 72 mm[Hg] Lamont Shay MD Work Phone: [facility] 01-09-2024 09:18-0500 Heart rate 101 /min Lamont Shay MD Work Phone: [facility] 01-09-2024 09:18-0500 Respiratory rate 20 /min Lamont Shay MD Work Phone: [facility] 01-09-2024 09:18-0500 SaO2% (BldA) [Mass fraction] 90 % Lamont Shay MD Work Phone: [facility] 01-09-2024 09:18-0500 Systolic blood pressure 140 mm[Hg] Lamont Shay MD Work Phone: [facility] 01-05-2024 13:38-0500 Diastolic blood pressure 83 mm[Hg] Infusion 8 Work Phone: [facility] 01-05-2024 13:38-0500 Heart rate 105 /min Infusion 8 Work Phone: [facility] 01-05-2024 13:38-0500 Systolic blood pressure 139 mm[Hg] Infusion 8 Work Phone: [facility] 11-15-2023 09:05-0400 Body height 154.9 cm Lamont Shay MD Work Phone: [facility] 11-15-2023 09:05-0400 Body mass index (BMI) [Ratio] 51.58 kg/m2 Lamont Shay MD Work Phone: [facility] 11-15-2023 09:05-0400 Body temperature 97.81 [degF] Lamont Shay MD Work Phone: [facility] 11-15-2023 09:05-0400 Body weight 123.83 kg Lamont Shay MD Work Phone: [facility] 11-15-2023 09:05-0400 Diastolic blood pressure 66 mm[Hg] Lamont Shay MD Work Phone: [facility] 11-15-2023 09:05-0400 Heart rate 60 /min Lamont Shay MD Work Phone: [facility] 11-15-2023 09:05-0400 Respiratory rate 24 /min Lamont Shay MD Work Phone: [facility] 11-15-2023 09:05-0400 Systolic blood pressure 126 mm[Hg] Lamont Shay MD Work Phone: [facility] 10-13-2023 13:51-0400 Diastolic blood pressure 74 mm[Hg] Infusion 8 Work Phone: [facility] 10-13-2023 13:51-0400 Heart rate 77 /min Infusion 8 Work Phone: [facility] 10-13-2023 13:51-0400 Systolic blood pressure 134 mm[Hg] Infusion 8 Work Phone: [facility] 10-10-2023 09:25-0400 Body height 154.9 cm Lamont Shay MD Work Phone: [facility] 10-10-2023 09:25-0400 Body mass index (BMI) [Ratio] 48.94 kg/m2 Lamont Shay MD Work Phone: [facility] 10-10-2023 09:25-0400 Body temperature 97.5 [degF] Lamont Shay MD Work Phone: [facility] 10-10-2023 09:25-0400 Body weight 117.48 kg Lamont Shay MD Work Phone: [facility] 10-10-2023 09:25-0400 Diastolic blood pressure 78 mm[Hg] Lamont Shay MD Work Phone: [facility] 10-10-2023 09:25-0400 Heart rate 88 /min Lamont Shay MD Work Phone: [facility] 10-10-2023 09:25-0400 Respiratory rate 22 /min Lamont Shay MD Work Phone: [facility] 10-10-2023 09:25-0400 SaO2% (BldA) [Mass fraction] 95 % Lamont Shay MD Work Phone: [facility] 10-10-2023 09:25-0400 Systolic blood pressure 116 mm[Hg] Lamont Shay MD Work Phone: [facility] 09-19-2023 14:22-0400 Body height 158.4 cm Logan Barth [employer] Work Phone: [facility] 09-19-2023 14:22-0400 Body mass index (BMI) [Ratio] 47.33 kg/m2 Logan Barth [employer] Work Phone: [facility] 09-19-2023 14:22-0400 Body temperature 99.1 [degF] Logan Green [employer] Work Phone: [facility] 09-19-2023 14:22-0400 Body weight 118.75 kg Logan Green [employer] Work Phone: [facility] 09-19-2023 14:22-0400 Diastolic blood pressure 81 mm[Hg] Logan Barht [employer] Work Phone: [facility] 09-19-2023 14:22-0400 Heart rate 80 /min Logan Green [employer] Work Phone: [facility] 09-19-2023 14:22-0400 Systolic blood pressure 115 mm[Hg] Logan Green [employer] Work Phone: [facility] 08-18-2023 09:26-0400 Diastolic blood pressure 51 mm[Hg] Curtis Lepe PA-C Work Phone: [facility] 08-18-2023 09:26-0400 Heart rate 88 /min Curtis Lepe PA-C Work Phone: [facility] 08-18-2023 09:26-0400 SaO2% (BldA) [Mass fraction] 97 % Curtis HERNANDEZ-Gilson Work Phone: [facility] 08-18-2023 09:26-0400 Systolic blood pressure 116 mm[Hg] Curtis Lepe PA-C Work Phone: [facility] 04-14-2023 11:08-0500 Diastolic blood pressure 62 mm[Hg] Infusion 7 Work Phone: [facility] 04-14-2023 11:08-0500 Heart rate 84 /min Infusion 7 Work Phone: [facility] 04-14-2023 11:08-0500 Systolic blood pressure 109 mm[Hg] Infusion 7 Work Phone: [facility] 04-13-2023 10:50-0500 Diastolic blood pressure 63 mm[Hg] Infusion 7 Work Phone: [facility] 04-13-2023 10:50-0500 Heart rate 86 /min Infusion 7 Work Phone: [facility] 04-13-2023 10:50-0500 Systolic blood pressure 127 mm[Hg] Infusion 7 Work Phone: [facility] 04-12-2023 13:45-0500 Diastolic blood pressure 58 mm[Hg] Infusion 7 Work Phone: [facility] 04-12-2023 13:45-0500 Heart rate 79 /min Infusion 7 Work Phone: [facility] 04-12-2023 13:45-0500 Systolic blood pressure 120 mm[Hg] Infusion 7 Work Phone: [facility] 11-11-2022 10:55-0400 Diastolic blood pressure 63 mm[Hg] Infusion 8 Work Phone: [facility] 11-11-2022 10:55-0400 Heart rate 83 /min Infusion 8 Work Phone: [facility] 11-11-2022 10:55-0400 Systolic blood pressure 110 mm[Hg] Infusion 8 Work Phone: [facility] 07-28-2022 10:15-0400 Diastolic blood pressure 50 mm[Hg] Infusion 8 Work Phone: [facility] 07-28-2022 10:15-0400 Heart rate 80 /min Infusion 8 Work Phone: [facility] 07-28-2022 10:15-0400 Systolic blood pressure 105 mm[Hg] Infusion 8 Work Phone: [facility] 12-03-2021 09:47-0400 Diastolic blood pressure 81 mm[Hg] Jesse Borrego MD Work Phone: [facility] 12-03-2021 09:47-0400 Heart rate 66 /min Jesse Borrego MD Work Phone: [facility] 12-03-2021 09:47-0400 SaO2% (BldA) [Mass fraction] 100 % Jesse Borrego MD Work Phone: [facility] 12-03-2021 09:47-0400 Systolic blood pressure 131 mm[Hg] Jesse Borrego MD Work Phone: [facility] 10-20-2021 12:00-0400 Diastolic blood pressure 101 mm[Hg] Lucila Mota MD Work Phone: [facility] 10-20-2021 12:00-0400 Heart rate 85 /min Lucila Mota MD Work Phone: [employer] 10-20-2021 12:00-0400 Respiratory rate 12 /min Lucila Mota MD Work Phone: [facility] 10-20-2021 12:00-0400 SaO2% (BldA) [Mass fraction] 98 % Lucila Mota MD Work Phone: [facility] 10-20-2021 12:00-0400 Systolic blood pressure 136 mm[Hg] Lucila Mota MD Work Phone: [facility] 10-20-2021 08:00-0400 Body temperature 98.2 [degF] Lucila Mota MD Work Phone: [facility] 12-24-2020 19:36-0400 Body temperature 99 [degF] Vielka Ching DO Work Phone: [employer] Work Phone: 12-24-2020 19:36-0400 Diastolic blood pressure 80 mm[Hg] Vielka Ching DO Work Phone: [employer] Work Phone: 12-24-2020 19:36-0400 Heart rate 108 /min Vielka Ching DO Work Phone: [employer] Work Phone: 12-24-2020 19:36-0400 Respiratory rate 20 /min Vielka Ching DO Work Phone: [employer] Work Phone: 12-24-2020 19:36-0400 SaO2% (BldA) [Mass fraction] 96 % Vielka Ching DO Work Phone: [employer] Work Phone: 12-24-2020 19:36-0400 Systolic blood pressure 136 mm[Hg] Vielka Ching DO Work Phone: [employer] Work Phone: Encounters Encounter Date Encounter Type Care Provider Facility Start: 04-05-2024 ambulatory Ramsey Nunn acility:[facility] Start: 04-02-2024 End: 04-02-2024 ambulatory ZAY BLAS Not Available Start: 04-02-2024 End: 04-02-2024 Office outpatient visit 10 minutes Zay Blas DO Work Phone: [facility] Comment on above: Visit for wound chec k; Yeast infection Start: 04-01-2024 End: 04-01-2024 Orders Only Svetlana HERNANDEZ Work Phone: [facility] Oncology, [facility] Department of [facility] Comment on above: S/P bilateral salpin go-oophorectomy Post-op pain (Primar y Dx) Start: 03-25-2024 End: 03-25-2024 Patient encounter status [facility] Start: 03-25-2024 End: 03-25-2024 Orders Only Mundo Martinez MD Work Phone: [facility] Gynecology Oncology, A Department of [facility] Comment on above: Preop testing (Prima ry Dx); Bilateral ovarian cysts Start: 03-21-2024 End: 03-21-2024 Telephone encounter Mundo Martinez MD Work Phone: [facility] Gynecology Oncology, A Department of [facility] Comment on above: Other (Surgery quest ions) Start: 03-21-2024 End: 03-21-2024 ambulatory Logan Barth APRN.PASTRYCOOK Work Phone: Neurology [facility] Comment on above: Intractable chronic migraine without aura and without status migrainosus (Primary Dx) Start: 03-21-2024 End: 03-21-2024 Telemedicine consultation with patient Logan Barth APRN.PASTRYCOOK Work Phone: Neurology [facility] Start: 03-20-2024 End: 03-20-2024 Office outpatient new 45 minutes Mariah Peña DO Work Phone: [facility] Comment on above: Asthma, unspecified asthma severity, unspecified whether complicated, unspecified whether persistent (Primary Dx); Bilateral ovarian cysts; Moderate asthma with acute exacerbation, unspecified whether persistent; Encounter for preoperative pulmonary examination; Pulmonary nodule; Gastroesophageal reflux disease, unspecified whether esophagitis present Start: 03-20-2024 End: 03-20-2024 Preoperative state Mundo Martinez MD Work Phone: [facility] Start: 03-20-2024 End: 03-20-2024 Orders Only Mundo Martinez MD Work Phone: [facility] Gynecology Oncology, A Department of [facility] Comment on above: Bilateral ovarian cy sts (Primary Dx); Moderate asthma with acute exacerbation, unspecified whether persistent; Encounter for preoperative pulmonary examination Acute cough [R05.1] (Primary Dx) Start: 03-19-2024 End: 03-19-2024 Orders Only Mundo Martinez MD Work Phone: [facility] Gynecology Oncology, A Department of [facility] Comment on above: Bilateral ovarian cy sts (Primary Dx); Preop testing Start: 03-19-2024 End: 03-19-2024 Patient encounter status Mundo Martinez MD Work Phone: [facility] Start: 03-18-2024 End: 03-18-2024 Office outpatient new 60 minutes Mundo Martinez MD Work Phone: [facility] Gynecology Oncology, A Department of [facility] Comment on above: Cyst of right ovary (Primary Dx) Start: 03-06-2024 End: 03-06-2024 Office outpatient visit 15 minutes Zay Roopa DO Work Phone: [facility] Comment on above: Cyst of right ovary; Pelvic pain in female; Pelvic peritoneal adhesions, female Start: 03-06-2024 End: 03-06-2024 ambulatory ZAY ROOPA Not Available Start: 02-28-2024 End: 02-28-2024 Bamboo flowsheet Zay Roopa DO Work Phone: [facility] Start: 02-28-2024 End: 02-28-2024 Bamboo flowsheet Zay Roopa DO Work Phone: [facility] Start: 02-28-2024 End: 02-28-2024 ambulatory ZAY ROOPA Not Available Start: 02-28-2024 End: 02-28-2024 Office outpatient visit 15 minutes Zay Roopa DO Work Phone: [facility] Comment on above: Pelvic pain in femal e; Complex ovarian cyst Start: 02-26-2024 End: 02-26-2024 Telephone encounter Lamont Shay MD Work Phone: [facility] Start: 02-22-2024 End: 02-22-2024 Telephone encounter Logan Barth APRN.PASTRYCOOK Work Phone: Neurology [facility] Comment on above: Insurance Authorizat ion (Zolmitriptan) Start: 02-16-2024 End: 02-16-2024 ambulatory Dariusz Estrada Facility:[facility] Start: 02-09-2024 End: 02-09-2024 Office outpatient visit 25 minutes Lamont Shay MD Work Phone: [facility] Comment on above: Generalized abdomina l pain (Primary Dx); Intractable nausea and vomiting; Mild persistent asthma with (acute) exacerbation ([facility]) Start: 02-09-2024 End: 02-09-2024 ambulatory LAMONT SHAY Not Available Start: 01-31-2024 End: 02-02-2024 Clinisync Result Encounter Generic External Data Provider [facility] External Department Unsolicited Start: 01-31-2024 End: 02-02-2024 Clinisync Result Encounter Generic External Data Provider [facility] External Department Unsolicited Start: 01-29-2024 End: 01-30-2024 Telephone encounter Logan Barth APRN.PASTRYCOOK Work Phone: Neurology [facility] Start: 01-24-2024 End: 01-24-2024 Orders Only Lamont [...] End: 01-22-2024 Patient encounter procedure Raiza Morales APRN.PASTRYCOOK Work Phone: Neurology Comment on above: Chronic [...] 01-22-2024 Refill Lamont Shay MD Work Phone: [facility] Comment on above: Pain, dental [...] Start: 01-16-2024 End: 01-16-2024 ambulatory Logan Barth APRN.CNP Work Phone: [facility] Comment on above: Please help Start: 01-09-2024 [...] Available Start: 12-05-2023 End: 12-05-2023 ambulatory Ольга J Harika COLOR MAKER FORMULATOR.PASTRYCOOK Work Phone: Neurology Comment on above: Intractable chronic migraine without aura and without status migrainosus (Primary Dx) Start: 12-05-2023 End: 12-05-2023 Telemedicine consultation with patient Ольга Aguilar COLOR MAKER FORMULATOR.PASTRYCOOK Work Phone: Neurology Start: 11-15-2023 End: 11-15-2023 [...] 11-06-2023 End: 11-06-2023 Orders Only Ronit Mustafa PEDIATRIC NP Work Phone: [facility] Comment on [...] 15 minutes Lamont Shay MD Work Phone: [facility] Comment on above: Acute bronchitis due to other specified organisms (Primary Dx); Mild persistent asthma with (acute) exacerbation ([facility]) Start: 10-10-2023 End: 10-10-2023 ambulatory LAMONT SAHY Not Available Start: 09-25-2023 End: 09-25-2023 ambulatory ZAY ROOPA Not Available Start: 09-19-2023 End: 09-19-2023 ambulatory LOGAN BARTH Facility:[facility] Start: 09-19-2023 End: 09-19-2023 Patient encounter procedure Logan Barth APRN.PASTRYCOOK Work Phone: Neurology [facility] Comment on above: Intractable chronic migraine without aura and without status migrainosus (Primary Dx) Start: 08-21-2023 End: 08-21-2023 ambulatory SHAIKH KAVITA Not Available Start: 08-18-2023 End: 08-18-2023 ambulatory CURTIS LEPE Facility:[facility] Start: 08-18-2023 End: 08-18-2023 Patient encounter procedure Curtis Lepe PA-C Work Phone: Neurology Comment on above: Intractable chronic migraine without aura and without status migrainosus (Primary Dx); Psychogenic nonepileptic seizure Start: 08-16-2023 ambulatory Logan Barth APR N.PASTRYCOOK Work Phone: Neurology [facility] Start: 08-16-2023 Subsequent hospital visit by physician Logan Barth APRN.PASTRYCOOK Work Phone: Neurology [facility] Comment on above: Hospital visit Start: 08-08-2023 ambulatory Logan Barth APR N.PASTRYCOOK Work Phone: Neurology [facility] Comment on above: Injection Start: 07-10-2023 End: 07-10-2023 ambulatory Logan Barth APRN.PASTRYCOOK Work Phone: Neurology [facility] Comment on above: Intractable chronic migraine without aura and without status migrainosus (Primary Dx) Start: 07-10-2023 End: 07-10-2023 Telemedicine consultation with patient Cameronnisha Tab SEO Work Phone: [facility] Start: 06-26-2023 ambulatory Ольга Lantigua Brendan zazueta [...] Start: 04-12-2023 End: 04-12-2023 ambulatory SUZAN DRIVER Facility:[facility] Start: 04-12-2023 End: 04-12-2023 Patient [...] Telephone encounter Angely rousseau RN Work Phone: [facility] Comment on above: Insurance Authorizat ion (Aimovig 70MG/ML auto-injectors/) Start: 03-23-2023 End: 03-23-2023 ambulatory KOLI GREEN Facility:[facility] Start: 12-13-2022 Refill Cameroni Tab APR N.PASTRYCOOK Work Phone: [facility]rology [facility] Comment on above: Refill Request Infusion (HEADACHE I NFUSIONS) Start: 12-09-2022 Refill Ольга zazueta COLOR MAKER FORMULATOR.PASTRYCOOK Work Phone: Neurology Comment on above: Refill Request Start: 11-11-2022 End: 11-11-2022 ambulatory Infusion Main Chair 8 Work Phone: Neurology Comment on above: Intractable chronic migraine without aura and with status migrainosus (Primary Dx) Start: 11-10-2022 End: 11-10-2022 ambulatory Ольга Aguilar COLOR MAKER FORMULATOR.PASTRYCOOK Work Phone: Neurology Comment on above: Intractable chronic migraine without aura and with status migrainosus (Primary Dx) Nerve block Start: 11-10-2022 Telephone encounter Suzan dinero COLOR MAKER FORMULATOR.PASTRYCOOK Work Phone: Neurology Comment on above: Infusion Start: 11-10-2022 End: 11-10-2022 Telemedicine consultation with patient Ольга Aguilar COLOR MAKER FORMULATOR.PASTRYCOOK Work Phone: [facility] Start: 10-12-2022 ambulatory Suzan boyle COLOR MAKER FORMULATOR.PASTRYCOOK Work Phone: Neurology Comment on above: Botox Start: 10-12-2022 E-mail encounter fro m caregiver Suzan Driver COLOR MAKER FORMULATOR.PASTRYCOOK Work Phone: [facility] Start: 09-29-2022 Telephone encounter Angely rousseau RN Work Phone: [facility] Comment on above: Insurance Authorizat ion (Zomig 5MG nasal spray/) Start: 09-27-2022 ambulatory Logan Barth APR N.PASTRYCOOK Work Phone: [facility] Comment on above: My apt Monday Start: 09-16-2022 ambulatory Logan Barth APR N.PASTRYCOOK Work Phone: [facility] Start: 09-16-2022 Patient encounter procedure Logan Barth COLOR MAKER FORMULATOR.PASTRYCOOK Work Phone: [facility] Comment on above: Appointment Start: 08-31-2022 End: 08-31-2022 ambulatory Logan Tab COLOR MAKER FORMULATOR.PASTRYCOOK Work Phone: Neurology Comment on above: Chronic migraine w/o aura, not intractable, w/o stat migr (Primary Dx) Start: 08-31-2022 End: 08-31-2022 Telemedicine consultation with patient Logan Barth APRN.PASTRYCOOK Work Phone: [facility] Start: 08-09-2022 ambulatory Logan Barth APR N.PASTRYCOOK Work Phone: [facility] Comment on above: Pain Start: 08-08-2022 End: 08-08-2022 ambulatory Jesse Borrego MD Work Phone: Neurology Comment on above: Intractable chronic migraine without aura and with status migrainosus (Primary Dx) Start: 08-08-2022 End: 08-08-2022 Telemedicine consultation with patient Jesse Borrego MD Work Phone: [facility] Start: 08-07-2022 ambulatory Jesse rick MD Work Phone: Neurology Comment on above: Name of medication Start: 07-28-2022 End: 07-28-2022 ambulatory Infusion Main Chair 8 Work Phone: Neurology Comment on above: Intractable chronic migraine without aura and with status migrainosus (Primary Dx) Start: 07-21-[address] ZAY BLAS . Facili ty:[facility] Start: 07-14-2022 Encounter for other preprocedural examination DR ZAY BLAS . [facility] Start: 07-12-2022 End: 07-13-[address] ZAY BLAS . Facility:[facility] Start: 07-12-2022 End: 07-13-2022 Encounter for other preprocedural examination DR ZAY BLAS . Facility:[facility] Start: 07-05-2022 ambulatory KRISTOFER Nunn acility:[facility] Start: 06-27-2022 Telephone encounter Logan Barth [...] Nelly Saldaña PA-C Work Phone: [facility] Start: 11-09-2021 ambulatory Tyrone Dolan MD, PhD Work Phone: [facility] Start: 11-09-2021 Patient encounter procedure Tyrone Dolan MD, PhD Work Phone: Neurology Comment on above: Request Veido appoin tment Start: 11-08-2021 ambulatory Tyrone Dolan MD, PhD Work Phone: [facility] Start: 11-08-2021 Patient encounter procedure Tyrone Dolan MD, PhD Work Phone: Neurology Comment on above: Appointment Start: 11-08-2021 Telephone encounter Tyrone Dolan MD, PhD Work Phone: Neurology Comment on above: Orders Start: 11-04-2021 End: 11-04-2021 ambulatory MANJINDER SAY Facility:[facility] Start: 10-29-2021 End: 10-29-2021 ambulatory Tyrone Dolan MD, PhD Work Phone: Neurology Comment on above: Psychogenic nonepile ptic seizure (Primary Dx); Spells of trembling; Chronic intractable headache, unspecified headache type Start: 10-29-2021 End: 10-29-2021 Telemedicine consultation with patient Tyrone Dolan MD, PhD Work Phone: [facility] Start: 10-26-2021 Patient encounter procedure Román Storey MD Work Phone: Neurology Comment on above: Seizure-like activit y (HCC) (Primary Dx) Start: 10-19-2021 End: 10-20-2021 Evaluation and management of inpatient LUCILA MOTA [facility] Start: 10-19-2021 End: 10-20-2021 Evaluation and management of inpatient Lucila Mota MD Work Phone: [facility] 1B Neuro ICU Start: 10-19-2021 End: [...] Emergency department patient visit ANGÉLICA ARTHUR [facility] Start: 12-24-2020 End: 12-24-2020 Emergency department patient visit Vielka Ching DO Work Phone: [facility] ED Comment on above: Migraine without [...] Start: 03-03-2022 Adult depression scr eening assessment Mundo Martinez MD Work Phone: Start: 10-29-2021 Adult depression scr eening assessment Tyrone Dolan MD, PhD Work Phone: Start: 10-20-2021 EEG VIDEO MONITORING Marcy Perez COLOR MAKER FORMULATOR - PASTRYCOOK Work Phone: Start: 10-20-2021 BASIC METABOLIC PANE L W/ REFLEX TO MG FOR LOW K Lucila Mota MD Work Phone: Start: 10-20-2021 Blood count complete auto&auto difrntl wbc Lo Perez COLOR MAKER FORMULATOR - PASTRYCOOK Work Phone: Start: 10-20-2021 IMMATURE PLATELET FRACTION Lo Perez COLOR MAKER FORMULATOR - PASTRYCOOK Work Phone: Start: 10-19-2021 Assay of lactate Uday Perez COLOR MAKER FORMULATOR - PASTRYCOOK Work Phone: Start: 10-19-2021 Ecg routine ecg w/le ast 12 lds w/i&r Lo Perez COLOR MAKER FORMULATOR - PASTRYCOOK Work Phone: Start: 10-19-2021 Mri brain brain stem w/o w/contrast material Lo Perez COLOR MAKER FORMULATOR - PASTRYCOOK Work Phone: Start: 10-19-2021 RESPIRATORY CARE EVALUATION ONLY Lo Perez COLOR MAKER FORMULATOR - PASTRYCOOK Work Phone: Start: 10-01-2021 Resection of Bilater [...] Td Vaccines (7 - Td or Tdap) [facility] Start: 09-20-2025 DTaP/Tdap/Td vaccine (7 - Td or Tdap) DTaP/Tdap/Td vaccine (7 - Td or Tdap) [facility] Start: 09-20-2025 Urine microalbumin profile [facility] Start: 03-28-2025 Adult BMI Screening Adult BMI Screen ing [facility] Start: 03-28-2025 Tobacco Screening Tobacco Screening [facility] Start: 03-25-2025 Adult BMI Screening Adult BMI Screen ing [facility] Start: 03-25-2025 Tobacco Screening Tobacco Screening [facility] Start: 03-20-2025 Adult BMI Screening Adult BMI Screen ing [facility] Start: 03-20-2025 Tobacco Screening Tobacco Screening [facility] Start: 03-18-2025 Adult BMI Screening Adult BMI Screen ing [facility] Start: 03-18-2025 Tobacco Screening Tobacco Screening [facility] Start: 05-28-2024 End: 05-28-2024 Patient encounter procedure 05/28/2024 1:00 PM EDT Office Visit [facility] [address] [phone] Mariha Peña, [address] [address] [facility] Start: 04-25-2024 End: 04-25-2024 Patient encounter procedure 04/25/2024 1:00 PM EST Office Visit [facility] [address] [place] [phone] Corine Gold MD [address] [place] [address] [facility] Start: 04-16-2024 End: 04-16-2024 Patient encounter procedure 04/16/2024 8:30 AM EST Office Visit [facility] [address] [place] [phone] Zay Blas DO [address] [place] [address] [facility] Start: 04-10-2024 End: 04-10-2024 Patient encounter procedure 04/10/2024 11:30 AM EST Office Visit Joie Antonio [facility] - Medical Oncology [address] [place] [phone] Svetlana Ye PA [address] [place] [address] [facility] - Medical Oncology Start: 04-10-2024 End: 04-10-2024 Professional / ancillary services management 04/10/2024 9:30 AM EST Ancillary Procedure [facility] [address] [place] [phone] [facility] Start: 03-29-2024 End: 03-29-2024 ambulatory 03/29/2024 1:30 PM EST Infusion Center Neurology [address] [place] [phone] [facility] Neu[facility] Comment on above: [facility] Start: 03-28-2024 End: 03-28-2024 Admission to same day surgery center 03/28/2024 9:00 AM EST - 03/28/2024 12:45 PM EST Surgery [facility] Surgery [address] [place] [phone] Mundo Martinez MD [address] [place] [address] [facility] ADHESIONS [facility] Comment on above: DAVINCI LYSIS OF ADH ESIONS Start: 03-28-2024 End: 03-28-2024 DAVINCI LYSIS OF ADHESIONS [facility] ADHESIONS OVARIAN CYST BILATERAL 03/28/2024 9:00 AM EST [facility] Start: 03-28-2024 End: 03-28-2024 DAVINCI SALPINGO OOPHORECTOMY DAVINCI SALPINGO OOPHORECTOMY OVARIAN CYST BILATERAL 03/28/2024 9:00 AM EST [facility] Start: 03-28-2024 Subsequent hospital visit by physician 03/28/2024 9:00 AM EST Hospital Encounter [facility] Surgery [address] [place] [phone] Mundo Martinez MD [address] [place] [address] [facility] Surgery Start: 03-25-2024 End: 03-25-2024 Patient encounter procedure 03/25/2024 2:15 PM EST Procedure visit [facility] On [address] [phone] [facility] Start: 03-22-2024 End: 03-22-2024 ambulatory 03/22/2024 1:30 PM [facility] Infusion Center Neurology [address] [place] [address] [facility] Neurology Comment on above: vyepti [...] ovarian cyst Expected: 02/28/2024 (Approximate), Expires: 02/27/2025 [facility] Comment on above: Expected: 02/28/2024 (Approximate), Expires: 02/27/2025 Start: 02-28-2024 End: 02-27-2025 CA 125 CA 125 Lab Routine Complex ovarian cyst Expected: 02/28/2024 (Approximate), Expires: 02/27/2025 [facility] Comment on above: Expected: 02/28/2024 (Approximate), Expires: 02/27/2025 Start: 02-28-2024 End: 02-27-2025 Carcinoembryonic Ag [Mass/volume] in Serum or Plasma CEA Lab Routine Complex ovarian cyst Expected: 02/28/2024 (Approximate), Expires: 02/27/2025 [facility] Comment on above: Expected: 02/28/2024 (Approximate), Expires: 02/27/2025 Start: 02-28-2024 End: 02-27-2025 HCG, tumor marker HCG, tumor marker Lab Routine Complex ovarian cyst Expected: 02/28/2024 (Approximate), Expires: 02/27/2025 [facility] Comment on above: Expected: 02/28/2024 (Approximate), Expires: 02/27/2025 Start: 02-28-2024 End: 02-27-2025 Lactate dehydrogenase, isoenzymes Lactate dehydrogenase, isoenzymes Lab Routine Complex ovarian cyst Expected: 02/28/2024 (Approximate), Expires: 02/27/2025 [facility] Work Phone: Comment on above: Expected: 02/28/2024 (Approximate), Expires: 02/27/2025 Start: 02-28-2024 End: 02-27-2025 US Pelvis US Pelvis w/ TV Imaging Routine Pelvic pain in female Complex ovarian cyst Expected: 02/28/2024, Expires: 02/27/2025 [facility] Comment on above: Expected: 02/28/2024 , Expires: 02/27/2025 Start: 02-28-2024 End: 02-28-2024 Patient encounter procedure 02/28/2024 11:10 AM EST Office [facility] [address] [facility] [place] [phone] Zay Blas DO [address] [place] [address] [facility] Start: 02-22-2024 End: 02-22-2024 Patient encounter procedure 02/22/2024 11:15 AM EST Office Visit [facility] [address] [place] [phone] Lamont Shay MD [address] [place] [address] [facility] Start: 02-09-2024 End: 02-08-2025 CT Abdomen and Pelvis WO and W contrast IV CT abdomen pelvis w and wo IV contrast Imaging Routine Generalized abdominal pain Intractable nausea and vomiting Expected: 02/09/2024, Expires: 02/08/2025 [facility] Work Phone: Comment on above: Expected: 02/09/2024 , Expires: 02/08/2025 Start: 02-05-2024 End: 02-05-2024 ambulatory 02/05/2024 1:45 PM EST [facility] [address] [place] [address] Logan Barth, UMANG.PASTRYCOOK [address] [place] [address] [facility] Comment on above: [facility] Start: 01-24-2024 End: 01-24-2024 Patient encounter procedure 01/24/2024 3:20 PM EST Office Visit [facility] OB [address] [facility] [phone] Zay Blas DO [address] [facility] [place] [address] [facility] Start: 01-23-2024 End: 01-22-2025 Basic metabolic 1998 panel - Serum or Plasma Basic metabolic panel Lab Routine Generalized edema Expected: 01/23/2024 (Approximate), Expires: 01/22/2025 [facility] Comment on above: Expected: 01/23/2024 (Approximate), Expires: 01/22/2025 Start: 01-23-2024 End: 01-22-2025 CBC W Auto Differential panel - Blood CBC and differential Lab Routine Generalized edema SOB (shortness of breath) on exertion Expected: 01/23/2024 (Approximate), Expires: 01/22/2025 [facility] Comment on above: Expected: 01/23/2024 (Approximate), Expires: 01/22/2025 Start: 01-23-2024 End: 01-22-2025 Hepatic function 2000 panel - Serum or Plasma Hepatic function panel Lab Routine Generalized edema SOB (shortness of breath) on exertion Expected: 01/23/2024 (Approximate), Expires: 01/22/2025 [facility] Comment on above: Expected: 01/23/2024 (Approximate), Expires: 01/22/2025 Start: 01-23-2024 End: 01-22-2025 Natriuretic peptide B [Mass/volume] in Blood B-type natriuretic peptide Lab Routine Generalized edema Expected: 01/23/2024 (Approximate), Expires: 01/22/2025 [facility] Comment on above: Expected: 01/23/2024 (Approximate), Expires: 01/22/2025 Start: 01-23-2024 End: 01-22-2025 XR Chest 2 Views XR chest 2 views Imaging Routine Mild persistent asthma with (acute) exacerbation (CMS/HCC) Generalized edema SOB (shortness of breath) on exertion Expected: 01/23/2024, Expires: 01/22/2025 [facility] Work Phone: Comment on above: Expected: 01/23/2024 , Expires: 01/22/2025 Start: 01-23-2024 End: 01-23-2024 Patient encounter procedure [facility] Comment on above: Arrived Start: 01-22-2024 End: 01-22-2024 Patient encounter procedure 01/22/2024 2:30 PM EST Office Visit Neurology [address] [place] [address] Raiza Morales, UMANG.PASTRYCOOK [address] [place] [address] Infusion Day #3 Neurology Comment on above: Infusion Day #3 Start: 01-22-2024 End: 01-22-2024 ambulatory 01/22/2024 2:00 PM EST Infusion Center Neurology [address] [place] [address] Non-[facility] Infusion Day #3 Neurology Comment on above: Non-[facility] Infusion Day #3 Start: 01-19-2024 End: 01-19-2024 ambulatory 01/19/2024 9:30 AM EST Infusion Center Neurology [address] [place] [address] Non[facility] Infusion Day #2 Neurology Comment on above: Non-[facility] Infusion Day #2 Start: 01-09-2024 End: 01-09-2024 Patient encounter procedure [facility] Comment on above: Arrived Start: 01-05-2024 End: 01-05-2024 ambulatory 01/05/2024 1:00 PM EST Infusion Center Neurology [address] [place] [address] [facility] Comment on above: [facility] Start: 12-12-2023 End: 12-12-2023 Patient encounter procedure 12/12/2023 3:45 PM EDT Office Visit [facility] [address] [place] [address] Lamont Shay MD [address] [place] [address] [facility] Start: 12-11-2023 End: 12-11-2023 Patient encounter procedure 12/11/2023 1:00 PM EDT Office Visit [facility] [address] [place] [id number] Zay Blas DO [address] [place], [place] [id number] Arrived [facility] Comment on above: Arrived Start: 11-15-2023 End: 11-15-2023 Patient encounter procedure 11/15/2023 8:45 AM EDT Office Visit [facility] [address] [place] [address] Lamont Shay MD [address] [place] [phone] Arrived [facility] Comment on above: Arrived Start: 11-06-2023 End: 11-06-2023 Patient encounter procedure 11/06/2023 11:30 AM EDT Office Visit [facility] [address] [phone] Jose Martin Lopez MD [address] Short [address] [place] [id number] [facility] Start: 10-31-2023 End: 10-31-2023 Patient encounter procedure 10/31/2023 2:30 PM EDT Office Visit Neurology [address] [phone] Tyrone Dolan MD, PhD [address] [facility] [address] [place] [address] Seizure Neurology Comment on above: Seizure Start: 10-22-2023 Covid-19 Vaccine ( season) Covid-19 Vaccine ( season) [facility] Start: 10-22-2023 Covid-19 Vaccine ( season) Covid-19 Vaccine () [facility] Start: 10-22-2023 Influenza vaccination [facility] Start: 10-13-2023 End: 10-13-2023 ambulatory 10/13/2023 1:00 PM EDT Infusion Center Neurology [address] [place] [address] [facility] Comment on above: [facility] Start: 10-10-2023 End: 10-10-2023 Patient encounter procedure 10/10/2023 9:15 AM EDT Office Visit [facility] [address] [place] [address] Lamont Shay MD [address] [place] [address] Arrived [facility] Comment on above: Arrived Start: 09-19-2023 End: 09-19-2023 Patient encounter procedure 09/19/2023 2:30 PM EDT Office Visit Neurology [facility] [address] [place] [address] Logan Barth APRN.PASTRYCOOK [address] [place] [address] Migraines Nerve Block Neurology [facility] Comment on above: Migraines Nerve Bloc k Start: 08-18-2023 End: 08-18-2023 Patient encounter procedure 08/18/2023 9:30 AM EDT Office Visit Neurology [address] [place] [address] Curtis Lepe PA-C [address] [place] [address] NERVE BLOCK Neurology Comment on above: NERVE BLOCK Start: 03-03-2023 Depression Screening Depression Scre ening [facility] Start: 02-20-2023 Depression Assessment Depression Ass [facility] Start: 10-29-2022 Adult depression scr eening assessment DEPRESSION SCREENING [facility] Start: 10-21-2022 Covid-19 Vaccine () Covid-19 Vaccine () [facility] Start: 10-21-2022 Influenza vaccination C [facility] Start: 02-20-2022 DEPRESSION ASSESSMENT DEPRESSION ASS [facility] Start: 10-26-2021 End: 10-26-2022 SARS-CoV-2 (COVID-19) RNA [Presence] in Respiratory specimen by SAURABH with probe detection PRE-PROCEDURE & PRE-OPERATIVE COVID Microbiology Routine Seizure-like activity (HCC) Expected: 10/26/2021, Expires: 10/26/2022 [facility] Work Phone: Comment on above: Expected: 10/26/2021 , Expires: 10/26/2022 Start: 10-21-2021 Influenza vaccination B ON [facility] Start: 02-20-2021 DEPRESSION ASSESSMENT DEPRESSION ASS [facility] Start: 10-21-2020 Influenza vaccination Flu vaccine (# 1) [facility] Work Phone: Start: 11-13-2016 PAP TESTING PAP TESTING [facility] Start: 11-13-2016 Screening for malign ant neoplasm of cervix BON [facility] Start: 11-13-2014 Urine microalbumin profile [facility] Start: 11-13-2013 Adult BMI Follow Up Plan Adult BMI Follow Up Plan [facility] Start: 11-13-2013 Anxiety Screening Anxiety Screening [facility] Start: 11-13-2013 Depression Screening Depression Scre [facility] Start: 11-13-2013 Hepatitis C screening B ON [facility] Start: 11-13-2013 HEPATITIS C SCREENING HEPATITIS C SC REENING [facility] Start: 11-13-2013 HIV SCREENING HIV SCREENING [facility] Start: 11-13-2013 HIV screening HIV Screening [facility] Start: 2011 Screening for Chlamy rose trachomatis Chlamydia [facility] Start: 11-13-2010 HIV screening HIV screen [facility] [employer] Start: 11-13-2009 PEDS TO ADULT TRANSI TION ANNUAL ASSESSMENT PEDS TO ADULT TRANSITION ANNUAL ASSESSMENT [facility] Start: 2007 Adult depression scr eening assessment DEPRESSION SCREENING [facility] Start: 2007 COVID-19 Vaccine (1) COVID-19 Vaccin e (1) [facility] Phone: Start: 2007 Depression Screen Depression Screen [facility] Start: 2007 PEDS TO ADULT TRANSI TION INITIAL DISCUSSION PEDS TO ADULT TRANSITION INITIAL DISCUSSION [facility] Start: 11-13-2006 HPV VACCINE (1 - 2-d ose series) HPV VACCINE (1 - 2-dose series) [facility] Start: 11-13-2004 HPV VACCINE (1 - 2-d ose series) HPV VACCINE (1 - 2-dose series) [facility] Start: 05-13-1996 COVID-19 Vaccine (#1) COVID-19 Vacci ne (#1) [facility] Start: 1995 HEPATITIS B (1 of 3 - 3-dose series) HEPATITIS B (1 of 3 - 3-dose series) [facility] Start: 1995 Hepatitis B Vaccine (1 of 3 - 3-dose series) Hepatitis B Vaccine (1 of 3 - 3-dose series) [facility] Start: 1995 Hepatitis C screening [facility] End: 03-20-2025 Rieus-4-Hqwguzgesca Phenotype Wjqcq-5-Iofforxuyfx Phenotype Lab Routine Moderate asthma with acute exacerbation, unspecified whether persistent 1 Occurrences starting 03/20/2024 until 03/20/2025 [facility] Comment on above: 1 Occurrences starti ng 03/20/2024 until 03/20/2025 Uusyh-4-Fqibeyomvdu Phenotype Nbxeq-3-Bvrmwkfgang Phenotype Lab Routine Moderate asthma with acute exacerbation, unspecified whether persistent 03/20/2024 1:12 PM EST [facility] Bacteria identified in Urine by Culture URINE CULTURE, ROUTINE Lab Routine 01/31/2024 11:57 AM [facility] End: 10-26-2021 Basic Metabolic Panel w/ Reflex to MG Basic Metabolic Panel w/ Reflex to MG Lab Routine Daily for 7 Days starting 10/20/2021 until 10/26/2021 [facility] Work Phone: Comment on above: Daily for 7 Days sta rting 10/20/2021 until 10/26/2021 End: 10-26-2021 CBC W Auto Differential panel - Blood CBC with Auto Differential Lab Routine Daily for 7 Days starting 10/20/2021 until 10/26/2021, 1 completed [facility] Work Phone: Comment on above: Daily for 7 Days sta rting 10/20/2021 until 10/26/2021, 1 completed End: 03-19-2025 ECG 12 lead ECG 12 lead ECG Routine Bilateral ovarian cysts Preop testing 1 Occurrences starting 03/19/2024 until 03/19/2025 [facility] Work Phone: Comment on above: 1 Occurrences starti ng 03/19/2024 until 03/19/2025 EKG 12 Lead EKG 12 Lead ECG Routine 10/19/2021 5:55 PM EDT [facility] Work Phone: End: 10-29-2022 EPIL AMBULATORY EEG EPIL AMBULATORY EEG NEUROLOGY Routine Psychogenic nonepileptic seizure Spells of trembling 1 Occurrences starting 10/29/2021 until 10/29/2022 [facility] Work Phone: Comment on above: 1 Occurrences starti ng 10/29/2021 until 10/29/2022 End: 10-26-2022 EPIL EEG LEAD PLACEMENT EPIL EEG LEAD PLACEMENT NEUROLOGY Routine Seizure-like activity (HCC) 1 Occurrences starting 10/26/2021 until 10/26/2022 [facility] Work Phone: Comment on above: 1 Occurrences starti ng 10/26/2021 until 10/26/2022 End: 11-08-2022 EPIL EEG ROUTINE EPIL EEG ROUTINE NEUROLOGY Routine Seizure-like activity (HCC) 1 Occurrences starting 11/08/2021 until 11/08/2022 [facility] Work Phone: Comment on above: 1 Occurrences starti ng 11/08/2021 until 11/08/2022 EPIL VEEG ADMIT TO EMU/PMU EPIL VEEG ADMIT TO EMU/PMU NEUROLOGY Routine Seizure-like activity (HCC) Ordered: 10/26/2021 [facility] Work Phone: Comment on above: Ordered: 10/26/2021 Oxygen therapy [[facility] Data Set] Initiate Oxygen Therapy Protocol Respiratory Care Routine As Needed until discontinued starting 10/19/2021 [facility] Work Phone: Comment on above: As Needed until disc ontinued starting 10/19/2021 End: 03-19-2025 Type and screen(includes indirect ady) Type and screen(includes indirect ady) Blood Bank Routine Bilateral ovarian cysts Preop testing 1 Occurrences starting 03/19/2024 until 03/19/2025 [facility] Comment on above: 1 Occurrences starti ng 03/19/2024 until 03/19/2025 [facility] Immunizations Immunization Date Immunization Notes Care Provider [facility] 12-08-2017 Influenza, injectabl e, [place] Canine Kidney, preservative free, quadrivalent Mundo Martinez MD Work Phone: [facility] 12-08-2017 influenza virus vacc ine, unspecified formulation Suzan Driver APRN.CNP Work Phone: [facility] 12-31-2015 influenza, seasonal, injectable, preservative free Mundo Martinez MD Work Phone: [facility] 09-21-2015 tetanus toxoid, redu ailyn diphtheria toxoid, and acellular pertussis vaccine, adsorbed Mundo Martinez MD Work Phone: [facility] 11-27-2014 influenza, seasonal, injectable, preservative free Mundo Martinez MD Work Phone: [facility] 10-23-2012 influenza, seasonal, injectable, preservative free Mundo Martinez MD Work Phone: [facility] 05-22-2012 human papilloma viru s vaccine, quadrivalent Mundo Martinez MD Work Phone: [facility] 01-20-2012 human papilloma viru s vaccine, quadrivalent Mundo Martinez MD Work Phone: [facility] 11-15-2011 human papilloma viru s vaccine, quadrivalent Mundo Martinez MD Work Phone: [facility] 11-15-2011 influenza, seasonal, injectable, preservative free Mundo Martinez MD Work Phone: [facility] 11-15-2011 meningococcal polysaccharide (groups A, C, Y and W-135) diphtheria toxoid conjugate vaccine (MCV4P) Mundo Martinez MD Work Phone: [facility] 11-15-2011 varicella virus vaccine Eloina Martinez MD Work Phone: [facility] 10-25-2002 hepatitis B vaccine, pediatric or pediatric/adolescent dosage Mundo Martinez MD Work Phone: [facility] 10-25-2002 varicella virus vaccine Eloina Martinez MD Work Phone: [facility] 09-07-2001 diphtheria, tetanus toxoids and acellular pertussis vaccine Mundo Martinez MD Work Phone: [facility] 09-07-2001 measles, mumps and rubella virus vaccine Mundo Martinez MD Work Phone: [facility] 09-07-2001 poliovirus vaccine, inactivated Mundo Martinez MD Work Phone: [facility] 03-05-1997 diphtheria, tetanus toxoids and acellular pertussis vaccine, Haemophilus influenzae type b conjugate, and poliovirus vaccine, inactivated ([id number]) Mundo Martinez MD Work Phone: [facility] 03-05-1997 measles, mumps and rubella virus vaccine Mundo Martinez MD Work Phone: [facility] 07-05-1996 diphtheria, tetanus toxoids and acellular pertussis vaccine, Haemophilus influenzae type b conjugate, and poliovirus vaccine, inactivated ([id number]-Fwg-[id number]) Mundo Martinez MD Work Phone: [facility] 05-06-1996 diphtheria, tetanus toxoids and acellular pertussis vaccine, Haemophilus influenzae type b conjugate, and poliovirus vaccine, inactivated ([id number]-Rxi-[id number]) Mundo Martinez MD Work Phone: [facility] 05-06-1996 hepatitis B vaccine, pediatric or pediatric/adolescent dosage Mundo Martinez MD Work Phone: [facility] 01-15-1996 diphtheria, tetanus toxoids and acellular pertussis vaccine, Haemophilus influenzae type b conjugate, and poliovirus vaccine, inactivated ([id number]-[id number]) Mundo Martinez MD Work Phone: [facility] 1995 hepatitis B vaccine, pediatric or pediatric/adolescent dosage Mundo Martinez MD Work Phone: [facility] 1995 hepatitis B vaccine, pediatric or pediatric/adolescent dosage Mundo Martinez MD Work Phone: [facility] Payers Date Payer Category Payer Medicaid (Managed Care) [facility] MEDICAID [id number] 2022 Self-pay 2017 Medicaid [place] [id number] 2017-Present Medicaid [id number] 2016 Medicaid HMO [place] [id number] 2013 Medicaid [id number] [id number]. [id number] 2011 Unknown 1995 Unknown [id number] 2.16.840.1.775450.3.579.2. 173 1995 Unknown [id number] 2.16.840.1.441110.3.579.2. 175 1995 Unknown [id number] 2.16.840.1.568442.3.579.2. 727 1995 Unknown [id number] 2.16.840.1.406023.3.579.2. 593 1995 Unknown [id number] 2.16.840.1.624456.3.579.2. 593 1995 Unknown [id number] 2.16.840.1.008818.3.579.2. 593 1995 Unknown [id number] 2.16.840.1.020341.3.579.2. 593 1995 Unknown [id number] 2.16.840.1.780554.3.579.2. 593 1995 Unknown [id number] 2.16.840.1.840328.3.579.2. 593 1995 Unknown [id number] 2.16.840.1.567165.3.579.2. 593 1995 Unknown [id number] 2.16.840.1.524415.3.579.2. 593 1995 Unknown [id number] 2.16.840.1.646320.3.579.2. 593 1995 Unknown [id number] 2.16.840.1.834494.3.579.2. 593 1995 Unknown [id number] 2.16.840.1.685307.3.579.2. 593 1995 Unknown [id number] 2.16.840.1.501881.3.579.2. 593 1995 Unknown [id number] 2.16.840.1.525816.3.579.2. 593 1995 Unknown [id number] 2.16.840.1.364303.3.579.2. 593 1995 Unknown [id number] 2.16.840.1.682086.3.579.2. 593 1995 Unknown [id number] 2.16.840.1.710702.3.579.2. 593 1995 Unknown [id number] 2.16.840.1.038519.3.579.2. 593 1995 Unknown [id number] 2.16.840.1.475208.3.579.2. 593 1995 Unknown [id number] 2.16.840.1.102646.3.579.2. 593 1995 Unknown [id number] 2.16.840.1.935571.3.579.2. 593 1995 Unknown [id number] 2.16.840.1.409873.3.579.2. 593 1995 Unknown [id number] 2.16.840.1.526525.3.579.2. 593 1995 Unknown [id number] 2.16.840.1.096486.3.579.2. 1258 1995 Unknown [id number] 2.16.840.1.647494.3.579.2. 125 1995 Unknown [id number] 2.16.840.1.074940.3.579.2. 1258 1995 Unknown [id number] 2.16.840.1.590595.3.579.2. 1258 1995 Unknown [id number] 2.16.840.1.650734.3.579.2. 1258 1995 Unknown [id number] 2.16.840.1.120775.3.579.2. 125 1995 Unknown [id number] 2.16.840.1.528398.3.579.2. 1258 1995 Unknown [id number] 2.16.840.1.743448.3.579.2. 125 1995 Unknown [id number] 2.16.840.1.512158.3.579.2. 1258 1995 Unknown [id number] 2.16.840.1.015667.3.579.2. 1258 1995 Unknown [id number] 2.16.840.1.225605.3.579.2. 1258 1995 Unknown [id number] 2.16.840.1.545584.3.579.2. 1259 1959 Unknown [id number] 1.2.840.918532.1.13.239.2. 7.3.563770.315 Unknown [id number] 2.16.840.1.647788.3.579.2. 531 Social History Date Type Detail Facility Tobacco smoking stat [facility] Unknown if ever smoked [facility] Start: 1995 Sex Assigned At Not on file C [facility] Start: 12-24-2020 End: 08-21-2023 Tobacco smoking status MTIS Never smoker [facility] Phone: Start: 12-24-2020 End: 08-21-2023 Tobacco use and exposure Never used [facility] Start: 12-24-2020 End: 03-29-2024 Alcohol intake Ex-drinker (finding) [facility] Phone: Start: 10-16-2021 End: 07-28-2022 Exposure to SARS-CoV-2 (event) Not sure [facility] Tobacco smoking stat [facility] Tobacco smoking consumption unknown [facility] Work Phone: Start: 08-08-2022 End: 01-23-2024 History of Social function [facility] Start: 08-08-2022 End: 01-23-2024 Patient Health Questionnaire 2 item (PHQ-2) [Reported] [facility] Adult Depression Screening Assessment 2 [facility] Start: 11-15-2023 End: 03-06-2024 Alcoholic beverage intake Lifetime non-drinker (finding) [facility] Start: 07-31-2022 Alcohol Comment Caffeine intak e: >4 cups per day [facility] Do you belong to any clubs or organizations such as amish groups, unions, fraternal or athletic groups, or [...] [facility] Start: 09-25-2014 Sex Female (finding) [facility] NEGATED: Highlighted rowStart: NINF History of tobacco use Passive smoker [facility] Clinical Notes 12-24-2020 to 04-02-2024 Yumiko Worrell, [employer]IC[employer] - 04/02/2024 1:00 PM ESTTelephone Encounter - Jania Garrett, [facility] - 04/01/2024 11:12 AM ESTTelephone Encounter - Jania Garrett, [facility] - 04/01/2024 11:12 AM ESTPatient InstructionsAttachments Note Date & Type Note Facility 04-02-2024 History of Presen t illness Narrative Eyad Reason for Appointment: Patient ID: Sandie Nicholson is a 28 y.o. female who presents for Wound Check Patient presents today for 1 Week Post Op Follow Up appointment. MEDICATIONS Current Outpatient Medications Medication Instructions promethazine [...] in female 12/19/2022 Mixed bipolar I disorder (CMS/HCC) 01/24/2023 Chronic migraine without aura without status migrainosus, not intractable ([facility]) 01/24/2023 Generalized anxiety disorder ([facility]) 01/24/2023 Persistent disorder of initiating or maintaining sleep 01/24/2023 Mild persistent asthma ([facility]) 01/24/2023 Polycystic ovaries 01/24/2023 Psychogenic nonepileptic seizure ([facility]) 01/24/2023 Class 3 severe obesity due to excess calories without serious comorbidity with body mass index (BMI) of 50.0 to 59.9 in adult ([facility]) 03/21/2023 Mild persistent asthma with (acute) exacerbation ([facility]) 10/10/2023 Fatigue 01/01/2024 Encounter for long-term (current) [...] Acute exacerbation of asthma with allergic rhinitis ([facility]) Allergies Asthma ([facility]) At low risk for fall Bipolar affective, mixed (HCC) ([facility]) Change in blood pressure Cholecystitis 2008 Depressive disorder ([facility]/HCC) OMID (generalized anxiety disorder) ([facility]) History of hysterectomy 10/01/2021 Insomnia, persistent Migraines (CMS/[facility]) Mild persistent asthma without complication ([facility]) Morbid obesity with BMI of 40.0-44.9, adult ([facility]) PCOS (polycystic ovarian syndrome) Right otitis media Seizures ([facility]) HISTORY PAST MEDICAL HISTORY SOCIAL HISTORY Past Medical History: Diagnosis Date Acute exacerbation of asthma with allergic rhinitis ([facility]) Allergies Asthma ([facility]) At low risk for fall Bipolar affective, mixed (HCC) ([facility]) Change in blood pressure high and low Cholecystitis 2008 Chronic migraine without aura without status migrainosus, not intractable ([facility]/HCC) Depressive disorder ([facility]/HCC) OMID (generalized anxiety disorder) ([facility]) History of hysterectomy 10/01/2021 Insomnia, persistent Migraines (CMS/HCC) Mild persistent asthma without complication (CMS/HCC) Morbid obesity with BMI of 40.0-44.9, adult (CMS/HCC) PCOS (polycystic ovarian syndrome) Psychogenic nonepileptic seizure (CMS/HCC) Right otitis media Seizures (CMS/HCC) stressed induced Social History Tobacco Use Smoking [...] Respiratory: Negative. Cardiovascular: Negative. Gastrointestinal: Negative. Genitourinary: Negative. Musculoskeletal: Negative. Skin: Negative. Neurological: Negative. All [...] nursing note reviewed. Exam conducted with a sprinkler installer present. Vitals: Estimated body mass index is 45.73 kg/m as calculated from the following: Height as of 02/09/24: 5' 1 . Weight as of this encounter: 242 lb. BP: 130/90 No LMP recorded. Patient has had a hysterectomy. ASSESSMENT & PLAN ICD-10-CM 1. Visit for wound check Z51.89 Pt was seen in ER with her daughter, two days after abdominal surgery. Cleaned with hydrogen peroxide. Rx for cleocin faxed to pharmacy. Documented by Yumiko Worrell LPN on behalf of: Zay Blas DO documented in this encounter [facility] 04-01-2024 Miscellaneous Notes Images from the original note were not included. Medication Received: Yesterday Coni Nicholson [facility] Surg [facility] Clinical Staff afternoon I m still in a lot of pain from my surgery I ve been taking tynol and the pain pills that were given to me every four hours I was wondering if you can send it a refill of those to help me get through please Jania Garrett CMA 04/01/24 11:15 a.m. I tried to call the patient to check in with her & see how she was feeling today. Our PASTRYCOOK wanted to make sure that she's not having any nausea, vomiting, fever or chills. The patient didn't answer, so I left her a message. documented in this encounter [facility] 04-01-2024 Telephone encounter Note Images from the original note were not included. Medication Received: Yesterday Coni Nicholson [facility] Surg [facility] Clinical Staff afternoon I m still in a lot of pain from my surgery I ve been taking tynol and the pain pills that were given to me every four hours I was wondering if you can send it a refill of those to help me get through please Jania Garrett CMA 04/01/24 11:15 a.m. I tried to call the patient to check in with her & see how she was feeling today. Our PASTRYCOOK wanted to make sure that she's not having any nausea, vomiting, fever or chills. The patient didn't answer, so I left her a message. [facility] 04-01-2024 History of Presen t illness Narrative Dontrell called with persistent post operative pain s/p BSO. Her 5 day prescription for oxycodone did not contain enough tablets to be taken every 4 hours as written on prescription. Refill of 7 day supply, 42 tablets provided. Advised on proper dosing and administration, potential side effects, and post op restrictions. MARY Cintron 04/01/24 [id number] documented in this encounter [facility] 04-01-2024 Miscellaneous Notes Patient had surgery on 03/28. lysis of adhesions, bilateral salpingo-oophorectomy. She has taken all her pain meds and is requesting more. States has been taking care of her sick child and carrying her which has increased her pain. Has been taking oxycodone every 4 hours due to that. Looks like she messaged general surgery yesterday asking for pain meds also. Message to Svetlana HERNANDEZ. Oxycodone refilled by Juniro HERNANDEZ. TC to Coni to let her know. Reminded her of post op restrictions,, medication safety, and alternating with ibuprofen .She states she does not have Ibuprofen. Message to Svetlana to prescribe. Acknowledged understanding She states her mom is now helping her with her sick child. documented in this encounter [facility] 04-01-2024 Telephone encounter Note Patient had surgery on 03/28. lysis of adhesions, bilateral salpingo-oophorectomy. She has taken all her pain meds and is requesting more. States has been taking care of her sick child and carrying her which has increased her pain. Has been taking oxycodone every 4 hours due to that. Looks like she messaged general surgery yesterday asking for pain meds also. Message to Svetlana HERNANDEZ. [facility] 04-01-2024 Telephone encounter Note Oxycodone refilled by Junior HERNANDEZ. TC to Coni to let her know. Reminded her of post op restrictions,, medication safety, and alternating with ibuprofen .She states she does not have Ibuprofen. Message to Svetlana to prescribe. Acknowledged understanding She states her mom is now helping her with her sick child. [facility] 03-25-2024 Instructions Mari Saldaña RN - 03/25/2024 2:15 PM EST Your surgery/procedure is scheduled at [facility] on 03-28-2024 at 9am Arrival Time: 7am [facility] Address: [address] [place] [address] in Parking lot located on [facility]. Report to the Entrance B. Check in at the information desk the surgery. The waiting room located on the second floor. If you have any questions prior to surgery, please call Pre-Admission Clinic at [phone] between 7:30 am and 4:30 pm Monday through Monday. If you have questions the morning of surgery, please call the Pre-op Department at [phone]. Notify your SURGEON if you develop any [...] piercings ,hair extensions that contain metal, nail amharic, make-up, and contact lens. You may brush [...] RIGHTS AND RESPONSIBILITIES As a patient at [facility], you have the right to: Receive medical care and be informed of who is taking care of you Be treated with dignity and respect Have a family member/benefits representative of choice and your physician notified of your admission Receive information and actively participate in decisions about your care and treatment Refuse care, treatment and services Decide who may provide your support and speak for you Access baptism and spiritual services Participate in ethical issues [...] of hospital charges and payment methods Patient/patient benefits representative responsibilities are to: Provide information about [...] in clean clothes. documented in this encounter [facility] 03-21-2024 Miscellaneous Notes ----- Message from Dr. Mundo Martinez MD sent at 03/21/2024 11:39 AM EST ----- Should be ok ----- Message ----- From: Nicky Zapata Sent: 03/21/2024 9:43 AM EST To: Mundo Martinez MD Pt is going up to the [facility] tomorrow and getting migraine infusion Vyepti infusion for migranies, during the infusion pt will get Toradol and benadryl, patient has surgery next week and she wants to make sure this infusion is ok to take and will not delay surgery, please advise. Pt was notified of Dr. Martinez response documented in this encounter [facility] 03-21-2024 Telephone encounter Note ----- Message from Dr. Mundo Martinez MD sent at 03/21/2024 11:39 AM EST ----- Should be ok ----- Message ----- From: Nicky Zapata Sent: 03/21/2024 9:43 AM EST To: Mundo Martinez MD Pt is going up to the [facility] tomorrow and getting migraine infusion Vyepti infusion for migranies, during the infusion pt will get Toradol and benadryl, patient has surgery next week and she wants to make sure this infusion is ok to take and will not delay surgery, please advise. [facility] 03-21-2024 Telephone encounter Note Pt was notified of Dr. Martinez response [facility] 03-21-2024 Note HNO ID: [id number] Author: LOGAN BARTH APRN.PASTRYCOOK Service: ? Author Type: Nurse Practitioner Type: [...] visit. Either the patient or their legal benefits representative has been informed of the risks [...] XL, Qudexy) Anti-Depressant and Antipsychotic Amitriptyline (Elavil) [place] (Eskalith, Lithobid) Nortriptyline (Pamelor, Aventyl) Anti-Migraine Dihydroergotamine [...] ZOLMitriptan (ZOMIG) 5 mg nasal sprayUse 1 [place] in the nose as needed at onset [...] by mouth ann (more content not included)... [facility] 03-21-2024 History of Presen t illness Narrative [...] visit. Either the patient or their legal benefits representative has been informed of the risks [...] XL, Qudexy) Anti-Depressant and Antipsychotic Amitriptyline (Elavil) [place] (Eskalith, Lithobid) Nortriptyline (Pamelor, Aventyl) Anti-Migraine Dihydroergotamine [...] ZOLMitriptan (ZOMIG) 5 mg nasal spray^Use 1 [place] in the nose as needed at onset [...] these with the patient: yes Logan Barth APRN.PASTRYCOOK HEADACHE SCORES: 12/05/2023 01/17/2024 03/20/2024 Headache Questions [...] Lymph 1.00 - 4.00 k/uL 0.84 Abs [place] <0.87 k/uL 0.06 Abs Eosin <0.46 k/uL [...] spontaneous and fluent without dysarthria. Short and senior care memory, cognition and general fund of knowledge [...] XL, Qudexy) Anti-Depressant and Antipsychotic Amitriptyline (Elavil) [place] (Eskalith, Lithobid) Nortriptyline (Pamelor, Aventyl) Blood Pressure [...] 30 minutes Logan Barth APRN.CNP Headache Section [facility] March 21, 2024 documented in this encounter [facility] 03-20-2024 History of Presen t illness Narrative [...] previously seen pulmonary with Dr. Jason at [facility]. She has been treated with Trelegy [...] as needed (exposure to allergen). 06/07/22 Yes Angélica Arthur APRN-WOOD bwfutcoizaw-aruhzvxox-twxxmkdv (TRELEGY ELLIPTA) 100-62.5-25 mcg blister with device [...] mouth in the morning. 06/07/22 Yes Angélica ArthurUMANG-SURGICAL GARMENT ASSEMBLY SUPERVISOR omeprazole (PriLOSEC) 20 mg capsule Take 1 capsule (20 mg total) by mouth in the morning. 01/27/22 Yes Blue Grace APRN-PASTRYCOOK ondansetron ODT (ZOFRAN ODT) 4 mg disintegrating [...] as needed (migraines). 10/29/20 Yes Ivy Zafar APRN-FADY scopolamine (TRANSDERM-SCOP) 1 mg/[address] 1 [...] chest is warranted. Dr. Mariah Peña DO. [facility] Office: [phone] documented in this encounter [facility] 03-18-2024 History of Presen t illness Narrative [...] which is why she doesn't go to [place] or [place]. She has had diarrhea for the last [...] lot of steroids. She does have a head and neck surgeon. Last hospitalized a couple years ago. Not [...] Asthma BV (bacterial vaginosis) Depression Migraine Seizure ([facility]) Lamictal for non-epileptiform seizure and depression/anxiety - [...] Piero Hernandez DO on 02/10/2024 12:45 AM I, Sundar Solo MD have personally reviewed the image(s) and agree with and/or edited the report Finalized by Sundar Solo MD on 02/10/2024 12:59 AM Assessment: Patient is diagnosed with Patient Active Problem List Diagnosis Encounter for observation of suspected anomaly not found LOC (loss of consciousness) (CMS-HCC) Migraine with aura and without status migrainosus, [...] procedures Referring and communicating with other health nurse care manager (not separately reported) Documenting clinical information in the electronic or other health record Independently interpreting results (not separately reported) and communicating results to the patient/family/caregiver Care coordination (not separately reported) [place] and lamictal, trazodone as needed MUNDO MARTINEZ MD documented in this encounter [facility] 03-06-2024 History of Presen t illness Narrative [...] in female 12/19/2022 Mixed bipolar I disorder ([facility]) 01/24/2023 Chronic migraine without aura without status migrainosus, not intractable ([facility]) 01/24/2023 Generalized anxiety disorder ([facility]) 01/24/2023 Persistent disorder of initiating or maintaining sleep 01/24/2023 Mild persistent asthma ([facility]) 01/24/2023 Polycystic ovaries 01/24/2023 Psychogenic nonepileptic seizure ([facility]) 01/24/2023 Class 3 severe obesity due to excess calories without serious comorbidity with body mass index (BMI) of 50.0 to 59.9 in adult ([facility]) 03/21/2023 Mild persistent asthma with (acute) exacerbation ([facility]) 10/10/2023 Fatigue 01/01/2024 Encounter for long-term (current) [...] Acute exacerbation of asthma with allergic rhinitis ([facility]) Allergies Asthma ([facility]) At low risk for fall Bipolar affective, mixed (HCC) ([facility]) Change in blood pressure Cholecystitis 2008 Depressive disorder ([facility]) OMID (generalized anxiety disorder) ([facility]) History of hysterectomy 10/01/2021 Insomnia, persistent Migraines ([facility]) Mild persistent asthma without complication ([facility]) Morbid obesity with BMI of 40.0-44.9, adult ([facility]) PCOS (polycystic ovarian syndrome) Right otitis media Seizures ([facility]) HISTORY PAST MEDICAL HISTORY SOCIAL HISTORY Past Medical History: Diagnosis Date Acute exacerbation of asthma with allergic rhinitis ([facility]) Allergies Asthma ([facility]) At low risk for fall Bipolar affective, mixed (HCC) ([facility]) Change in blood pressure high and low Cholecystitis 2008 Chronic migraine without aura without status migrainosus, not intractable ([facility]) Depressive disorder ([facility]) OMID (generalized anxiety disorder) ([facility]) History of hysterectomy 10/01/2021 Insomnia, persistent Migraines ([facility]) Mild persistent asthma without complication ([facility]) Morbid obesity with BMI of 40.0-44.9, adult ([facility]) PCOS (polycystic ovarian syndrome) Psychogenic nonepileptic seizure ([facility]) Right otitis media Seizures ([facility]) stressed induced Social History Tobacco Use Smoking [...] nursing note reviewed. Exam conducted with a sprinkler installer present. Vitals: Estimated body mass index is 45.69 kg/m as calculated from the following: Height as of 02/08/24: 5' 1 . Weight as of this [...] Zay Blas DO documented in this encounter [facility] 02-28-2024 History of Presen t illness Narrative [...] in female 12/19/2022 Mixed bipolar I disorder ([facility]) 01/24/2023 Chronic migraine without aura without status migrainosus, not intractable ([facility]) 01/24/2023 Generalized anxiety disorder ([facility]) 01/24/2023 Persistent disorder of initiating or maintaining sleep 01/24/2023 Mild persistent asthma ([facility]) 01/24/2023 Polycystic ovaries 01/24/2023 Psychogenic nonepileptic seizure ([facility]) 01/24/2023 Class 3 severe obesity due to excess calories without serious comorbidity with body mass index (BMI) of 50.0 to 59.9 in adult ([facility]) 03/21/2023 Mild persistent asthma with (acute) exacerbation ([facility]) 10/10/2023 Fatigue 01/01/2024 Encounter for long-term (current) [...] Acute exacerbation of asthma with allergic rhinitis ([facility]) Allergies Asthma ([facility]) At low risk for fall Bipolar affective, mixed (HCC) ([facility]) Change in blood pressure Cholecystitis 2009 Depressive disorder ([facility]) OMID (generalized anxiety disorder) ([facility]) History of hysterectomy 10/01/2021 Insomnia, persistent Migraines ([facility] Mild persistent asthma without complication ([facility]) Morbid obesity with BMI of 40.0-44.9, adult ([facility]) PCOS (polycystic ovarian syndrome) Right otitis media Seizures ([facility]) HISTORY PAST MEDICAL HISTORY SOCIAL HISTORY Past Medical History: Diagnosis Date Acute exacerbation of asthma with allergic rhinitis ([facility]) Allergies Asthma ([facility]) At low risk for fall Bipolar affective, mixed (HCC) ([facility]) Change in blood pressure high and low Cholecystitis 2008 Chronic migraine without aura without status migrainosus, not intractable ([facility]) Depressive disorder ([facility]) OMID (generalized anxiety disorder) ([facility]) History of hysterectomy 10/01/2021 Insomnia, persistent Migraines ([facility] Mild persistent asthma without complication ([facility]) Morbid obesity with BMI of 40.0-44.9, adult ([facility]) PCOS (polycystic ovarian syndrome) Psychogenic nonepileptic seizure ([facility]) Right otitis media Seizures ([facility]) stressed induced Social History Tobacco Use Smoking [...] nursing note reviewed. Exam conducted with a sprinkler installer present. Vitals: Estimated body mass index is [...] Zay Blas DO documented in this encounter [facility] 02-26-2024 Telephone encounter Note Pt advised [facility] 02-26-2024 Miscellaneous Notes Pt advised [facility] Patients elizabeth harmon is gma and they are both pts of DB. 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 And if not db she asked for dominic. Pt does know we are not accepting new patients but asked if I could send this back - was told no on Monday. documented in this encounter [facility] 02-26-2024 Telephone encounter Note [facility] ACCEPT PT [facility] 02-26-2024 Telephone encounter Note Patients elizabeth harmon is gma and they are both pts of DB. 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 And if not db she asked for dominic. Pt does know we are not accepting new patients but asked if I could send this back - was told no on Monday. [facility] 02-22-2024 Telephone encounter Note Summary: MARY Jordan Images from the original note were not included. Prior Authorization submitted via CoverMyMeds on 02/22/2024: Insurance: [place] Medicaid Medication: Zolmitriptan Chong Code: [id number] Awaiting Response [facility] 02-22-2024 Miscellaneous Notes Summary: PA Zolmitriptan Images from the original note were not included. Prior Authorization submitted via CoverMyMeds on 02/22/2024: Insurance: [place] Medicaid Medication: Zolmitriptan Chong Code: [id number] Awaiting Response documented in this encounter [facility] 02-09-2024 History of Presen t illness Narrative Associated Problem(s): Mild persistent asthma with (acute) exacerbation ([facility]) Recent flare but not able to take [...] wo IV contrast documented in this encounter [facility] 01-30-2024 Note Addended by: LOGAN BARTH on: 01/30/2024 02:59 PM Modules accepted: Orders [facility] 01-30-2024 Telephone encounter Note The following approved medication requests have been transmitted electronically. Requested Prescriptions Signed Prescriptions Disp Refills ZOLMitriptan (ZOMIG) 5 mg nasal spray 12 Each 5 Sig: Use 1 [place] in the nose as needed at onset of migraine headache. If symptoms persist or return, may repeat dose in other nostril after 2 hours. Maximum of 2 sprays per 24 hours Authorizing Provider: LOGAN BARTH APRN.CNP [facility] 01-30-2024 Miscellaneous Notes Addended by: LOGAN BRATH on: 01/30/2024 02:59 PM Modules accepted: Orders The following approved medication requests have been transmitted electronically. Requested Prescriptions Signed Prescriptions Disp Refills ZOLMitriptan (ZOMIG) 5 mg nasal spray 12 Each 5 Sig: Use 1 [place] in the nose as needed at onset [...] Each 5 11/10/2023 -- Sig: Use 1 [place] in the nose as needed at onset [...] to verify quantity on zolmitriptan. Callback number: [phone] documented in this encounter [facility] 01-30-2024 Telephone encounter Note Dispense 12 pls. I rewrote the rx. Logan Barth APRN.CNP [facility] 01-29-2024 Telephone encounter Note Per last Rx on 11/10/2023: Disp Refills Start End ZOLMitriptan (ZOMIG) 5 mg nasal spray 10 Each 5 11/10/2023 -- Sig: Use 1 [place] in the nose as needed at onset of migraine headache. If symptoms persist or return, may repeat dose in other nostril after 2 hours. Maximum of 2 sprays per 24 hours I called the pharmacy and hey need to know if Provider would like to dispense #6 or #12 cartridges. They do not come in 10. Please advise. Thank you [facility] 01-29-2024 Telephone encounter Note Name of Caller: nicky Relationship to patient: pharmacy Last visit in this department: 09/19/2023 Reason for Call: Other : need to verify quantity on zolmitriptan. Callback number: [phone] [facility] 01-23-2024 History of Presen t illness Narrative Associated Problem(s): SOB (shortness of breath) on exertion Severe symptom and check CXR. Use albuterol PRN and start prednisone. Associated Problem(s): Mild persistent asthma with (acute) exacerbation ([facility]) Continued symptoms and treat with prednisone and [...] Visit Mild persistent asthma with (acute) exacerbation ([facility]) - Primary Continued symptoms and treat with [...] CBC and differential documented in this encounter [facility] 01-22-2024 Note HNO ID: [id number] Author: JOHANA CANCINO RN Service: ? Author Type: Registered Nurse Type: Progress Notes Filed: 01/22/2024 15:58 Note Text: Pt in for third day of infusion. Pt rated headache 9/10. Pt has severe nausea and moderate dizziness. Educated pt on medications to be administered. Pt agreed to proceed as ordered. Incinerator Plant Supervisor yes Patient reports she stopped vomiting but [...] via wheelchair to her in the lobby. [facility] 01-22-2024 History of Presen t illness Narrative Pt in for third day of infusion. Pt rated headache 9/10. Pt has severe nausea and moderate dizziness. Educated pt on medications to be administered. Pt agreed to proceed as ordered. Incinerator Plant Supervisor yes Patient reports she stopped vomiting but [...] in the lobby. documented in this encounter [facility] 01-22-2024 Note HNO ID: [id number] Author: RAIZA MORALES APRN.PASTRYCOOK Service: ? Author Type: Nurse Practitioner Type: [...] Lymph 1.00 - 4.00 k/uL 0.84 Abs [place] <0.87 k/uL 0.06 Abs Eosin <0.46 k/uL [...] ZOLMitriptan (ZOMIG) 5 mg nasal sprayUse 1 [place] in the nose as needed at onset [...] and clear, coherent, and relevant. Short and extermination supervisor memory, cognition and general fund of knowledge [...] which included p (more content not included)... [facility] 01-22-2024 History of Presen t illness Narrative [...] Lymph 1.00 - 4.00 k/uL 0.84 Abs [place] <0.87 k/uL 0.06 Abs Eosin <0.46 k/uL [...] ZOLMitriptan (ZOMIG) 5 mg nasal spray^Use 1 [place] in the nose as needed at onset [...] and clear, coherent, and relevant. Short and senior care memory, cognition and general fund of knowledge [...] which included preparing to see the patient, [id number] patient care, completing clinical documentation, and obtaining and/or reviewing separately obtained history. Raiza Morales APRN.FADY Headache Section [facility] January 22, 2024 documented in this encounter [facility] 01-19-2024 Note HNO ID: [id number] Author: JOHANA CANCINO RN Service: ? Author Type: Registered Nurse Type: Progress Notes Filed: 01/19/2024 11:55 Note Text: Pt in for second day of infusion. Pt rated headache 10/10. Pt has severe nausea and severe dizziness. Educated pt on medications to be administered. Pt agreed to proceed as ordered. Incinerator Plant Supervisor: yes Patient took Valium 10 mg tabl [...] Pt d/c via wheelchair to her in [facility]. Instructed patient and to take caution with ambulating. Patient is feeling sedated. [facility] 01-19-2024 History of Presen t illness Narrative Pt in for second day of infusion. Pt rated headache 10/10. Pt has severe nausea and severe dizziness. Educated pt on medications to be administered. Pt agreed to proceed as ordered. Incinerator Plant Supervisor: yes Patient took Valium 10 mg tabl [...] Pt d/c via wheelchair to her in [facility]. Instructed patient and to take caution with ambulating. Patient is feeling sedated. documented in this encounter [facility] 01-17-2024 Note HNO ID: [id number] Author: CARLINE MAYNARD RN Service: ? Author [...] PRN Zofran given for nausea. Discharged to speedboat driver via wheelchair. [facility] 01-17-2024 History of Presen t illness Narrative [...] PRN Zofran given for nausea. Discharged to speedboat driver via wheelchair. documented in this encounter [facility] 01-17-2024 Note HNO ID: [id number] Author: ОЛЬГА AGUILAR APRN.PASTRYCOOK Service: ? Author Type: Nurse Practitioner Type: Progress Notes Filed: 01/17/2024 07:59 Note Text: [facility]ache Center - Virtual Visit Infusion Triage This visit was conducted as a virtual visit, with patient's permission, via ZOOM. It required patient-provider interaction for the medical decision making as documented below. Patient stated name and Patient location [place], [place] I have communicated my name and active licensure. The patient's identity and physical location were verified at the time of this visit. Either the patient or their legal benefits representative has been informed of the risks [...] [place], New health events/diagnosis since last visit ([place]/stroke/DM/HTN/etc): denies Cardiovascular risk factors: obesity Past infusion [...] Lymph 1.00 - 4.00 k/uL 0.84 Abs [place] <0.87 k/uL 0.06 Abs Eosin <0.46 k/uL <0.03 Abs Baso <0.11 k/uL <0.03 NRBC /100 WBC 0.0 Analgesic Ketorolac (Toradol) Anti-Convulsant Lamotrigine (Lamictal) Topiramate (Topamax, Trokendi XL, Qudexy) Anti-Depressant and Antipsychotic Amitriptyline (Elavil) [place] (Eskalith, Lithobid) Nortriptyline (Pamelor, Aventyl) Anti-Migraine Dihydroergotamine [...] sprayUse 1 Sp (more content not included)... [facility] 01-16-2024 Telephone encounter Note PAPO: 12/05/2023 with Ольга Aguilar APRN.PASTRYCOOK [facility] 01-16-2024 Miscellaneous Notes PAPO: 12/05/2023 with Ольга Aguilar APRN.PASTRYCOOK documented in this encounter [facility] 01-09-2024 History of Presen t illness Narrative Associated Problem(s): Chronic migraine without aura without status migrainosus, not intractable ([facility]) PINEDA worse and follow with specialists. Associated Problem(s): Class 3 severe obesity due to excess calories without serious comorbidity with body mass index (BMI) of 50.0 to 59.9 in adult ([facility]) Patient overweight and difficult time losing weight. [...] labs. Associated Problem(s): Mixed bipolar I disorder ([facility]) Denies worsening symptoms and follow with specialists [...] (BMI) of 50.0 to 59.9 in adult ([facility]) Patient overweight and difficult time losing weight. [...] 50 MG tablet documented in this encounter [facility] 01-05-2024 Note HNO ID: [id number] Author: LENNIE PALACIOS RN Service: ? Author [...] after Benadryl given. 1345 Patient discharged to speedboat driver in wheelchair , patient sleepy but verbalizing and ambulating wheelchair used as a precaution Patient able to walk to wheelchair without difficulty. [facility] 01-05-2024 History of Presen t illness Narrative [...] after Benadryl given. 1345 Patient discharged to speedboat driver in wheelchair , patient sleepy but verbalizing and ambulating wheelchair used as a precaution Patient able to walk to wheelchair without difficulty. documented in this encounter [facility] 12-05-2023 History of Presen t illness Narrative Images from the original note were not included. [facility] - Follow up Virtual Visit Last OV: 08/23/23 Sona Barth APRN Accompanied by: Self This visit was conducted as a virtual visit, with patient's permission, via ZOOM. It required patient-provider interaction for the medical decision making as documented below. Patient stated name and Patient location [place], [place] I have communicated my name and active licensure. The patient's identity and physical location were verified at the time of this visit. Either the patient or their legal benefits representative has been informed of the risks [...] (ZOMIG) 5 mg nasal spray Use 1 [place] in the nose as needed at onset [...] these with the patient: yes Ольга Aguilar APRN.PASTRYCOOK Studies to Review: No New Health Issues: [...] XL, Qudexy) Anti-Depressant and Antipsychotic Amitriptyline (Elavil) [place] (Eskalith, Lithobid) Nortriptyline (Pamelor, Aventyl) Blood Pressure [...] which included preparing to see the patient, [id number] patient care, completing clinical documentation, and counseling and educating the patient/family/caregiver. Ольга Aguilar APRN.FADY documented in this encounter [facility] 12-05-2023 Note HNO ID: [id number] Author: ОЛЬГА AGUILAR APRN.PASTRYCOOK Service: ? Author Type: Nurse Practitioner Type: Progress Notes Filed: 12/05/2023 07:28 Note Text: Headache Center - Follow up Virtual Visit Last OV: 08/23/23 Sona Barth APRN Accompanied by: Self This visit was conducted as a virtual visit, with patient's permission, via ZOOM. It required patient-provider interaction for the medical decision making as documented below. Patient stated name and Patient location [place], [place] I have communicated my name and active licensure. The patient's identity and physical location were verified at the time of this visit. Either the patient or their legal benefits representative has been informed of the risks [...] (ZOMIG) 5 mg nasal spray Use 1 [place] in the nose as needed at onset [...] 03/22/2023 07/10/2023 1 (more content not included)... [facility] 11-15-2023 History of Presen t illness Narrative [...] MG per tablet documented in this encounter [facility] 11-10-2023 Telephone encounter Note The following approved medication requests have been transmitted electronically. Requested Prescriptions Signed Prescriptions Disp Refills ZOLMitriptan (ZOMIG) 5 mg nasal spray 10 Each 5 Sig: Use 1 [place] in the nose as needed at onset [...] spasm (migraine). Authorizing Provider: LOGAN BARTH APRN.CNP [facility] 11-10-2023 Miscellaneous Notes The following approved medication requests have been transmitted electronically. Requested Prescriptions Signed Prescriptions Disp Refills ZOLMitriptan (ZOMIG) 5 mg nasal spray 10 Each 5 Sig: Use 1 [place] in the nose as needed at onset [...] spray 10 Each 5 Sig: Use 1 [place] in the nose as needed at onset [...] muscle spasm (migraine). documented in this encounter [facility] 11-10-2023 Telephone encounter Note The following approved medication requests have been transmitted electronically. Requested Prescriptions Signed Prescriptions Disp Refills promethazine (PHENERGAN) 25 mg tablet 90 tablet 5 Sig: Take 1 tablet by mouth every 4 hours as needed. FOR NAUSEA Authorizing Provider: LOGAN BARTH APRN.CNP [facility] 11-10-2023 Miscellaneous Notes The following approved medication [...] DRUG [facility] documented in this encounter [facility] 11-10-2023 Telephone encounter Note Physician: Tab Call from patient requesting refill. Please E-Scribe Last office visit 09/19/23 with Green in person Next office visit N/A Requested Prescriptions Pending Prescriptions Disp Refills promethazine (PHENERGAN) 25 mg tablet 90 tablet 1 Sig: Take 1 tablet by mouth every 4 hours as needed. FOR NAUSEA Pharmacy Name: [facility] 11-10-2023 Telephone encounter Note patient requesting refill via Mychart. Last OV: 09/19/2023 Future OV: None scheduled Last prescribed: 4 months ago (07/10/2023) by Logan Barth APRN.PASTRYCOOK Requested Prescriptions Pending Prescriptions Disp Refills ZOLMitriptan (ZOMIG) 5 mg nasal spray 10 Each 5 Sig: Use 1 [place] in the nose as needed at onset [...] day as needed for muscle spasm (migraine). [facility] 10-13-2023 Note HNO ID: [id number] Author: JOHANA CANCINO RN Service: ? Author Type: Registered Nurse Type: Progress Notes Filed: 10/13/2023 14:00 Note Text: Pt in for Vyepti infusion. Pt rated headache 8 /10. Pt has severe nausea and mild dizziness. Educated pt on medications to be administered. Pt agreed to proceed as ordered. Incinerator Plant Supervisor: yes Zofran 8 mg IVP given for [...] patient home. Patient d/c via wheelchair.. [facility] 10-13-2023 History of Presen t illness Narrative Pt in for Vyepti infusion. Pt rated headache 8 /10. Pt has severe nausea and mild dizziness. Educated pt on medications to be administered. Pt agreed to proceed as ordered. Incinerator Plant Supervisor: yes Zofran 8 mg IVP given for [...] d/c via wheelchair.. documented in this encounter [facility] 10-10-2023 History of Presen t illness Narrative Associated Problem(s): Mild persistent asthma with (acute) exacerbation ([facility]) Continued symptoms and treat with prednisone and [...] MG per tablet documented in this encounter [facility] 09-19-2023 History of Presen t illness Narrative [...] XL, Qudexy) Anti-Depressant and Antipsychotic Amitriptyline (Elavil) [place] (Eskalith, Lithobid) Nortriptyline (Pamelor, Aventyl) Anti-Migraine Dihydroergotamine [...] ZOLMitriptan (ZOMIG) 5 mg nasal spray^Use 1 [place] in the nose as needed at onset [...] these with the patient: yes Logan Barth APRN.PASTRYCOOK HEADACHE SCORES: 03/22/2023 07/10/2023 09/19/2023 Headache Questions [...] SCORES OMID-2 Score 4 2 2 2 OMDI-7 Score 12/12/2022 03/22/2023 07/10/2023 Migraine Specific QOL - [...] spontaneous and fluent without dysarthria. Short and extermination supervisor memory, cognition and general fund of knowledge [...] XL, Qudexy) Anti-Depressant and Antipsychotic Amitriptyline (Elavil) [place] (Eskalith, Lithobid) Nortriptyline (Pamelor, Aventyl) Blood Pressure [...] which included preparing to see the patient, [id number] patient care, completing clinical documentation, obtaining and/or reviewing separately obtained history, counseling and educating the patient/family/caregiver, ordering medications, tests, or procedures, and care coordination (not separately reported). Logan Barth APRN.CNP Headache Section [facility] September 19, 2023 documented in this encounter [facility] 09-19-2023 Note HNO ID: [id number] Author: LOGAN BARTH APRN.CNP Service: ? Author [...] XL, Qudexy) Anti-Depressant and Antipsychotic Amitriptyline (Elavil) [place] (Eskalith, Lithobid) Nortriptyline (Pamelor, Aventyl) Anti-Migraine Dihydroergotamine [...] ZOLMitriptan (ZOMIG) 5 mg nasal sprayUse 1 [place] in the nose as needed at onset [...] these with the patient: yes Logan Barth APRN.PASTRYCOOK HEADACHE SCORES: 03/22/2023 07/10/2023 09/19/2023 Headache Questions [...] headache after (more content not included)... [facility] 08-18-2023 Instructions Curtis Lepe PA-C - 08/18/2023 2:39 PM EDT You received a greater occipital nerve block (GONB) today You may feel sore tomorrow at the site of the injection. You may use heat or ice for discomfort and gentle stretching. This should resolve in 24-36 hours. Greater Occipital Nerve Block (GONB) Article in [employer] Journal By: Molina Barraza MD Many patients with chronic headache report that their pain typically arises from the neck or, more specifically, the base of the skull. Often that pain arises on one side or the other and extends forward to involve the top of the head, the holiness, the forehead, the eye or some combination [...] at least one more try. https://americanheadachesociety .org/wp-content/uploads/ /Uspuvdxtu-Mnhua-Ekvyso_Dun-201 0.pdf documented in this encounter [facility] 08-18-2023 History of Presen t illness Narrative [...] 1 month Curtis Lepe PA-C Headache Section [facility] August 18, 2023 documented in this encounter [facility] 08-18-2023 Note HNO ID: [id number] Author: CURTIS LEPE PA-C Service: ? Author Type: Physician Color Room Attendant Type: Progress Notes Filed: 08/18/2023 14:39 Note [...] 1 month Curtis Lepe PA-C Headache Section [facility] August 18, 2023 [facility] 08-16-2023 Telephone encounter Note Forwarded to provider for review. PAPO: 07/10/2023 Future OV: 09/19/2023 Encounter from [facility] today 08/16/2023 [facility] 08-16-2023 Miscellaneous Notes Forwarded to provider for review. PAPO: 07/10/2023 Future OV: 09/19/2023 Encounter from [facility] today 08/16/2023 documented in this encounter [facility] 07-10-2023 History of Presen t illness Narrative [...] visit. Either the patient or their legal benefits representative has been informed of the risks [...] XL, Qudexy) Anti-Depressant and Antipsychotic Amitriptyline (Elavil) [place] (Eskalith, Lithobid) Nortriptyline (Pamelor, Aventyl) Anti-Migraine Dihydroergotamine [...] ZOLMitriptan (ZOMIG) 5 mg nasal spray^Use 1 [place] in the nose as needed at onset [...] these with the patient: yes Logan Barth APRN.PASTRYCOOK HEADACHE SCORES: 12/12/2022 03/22/2023 07/10/2023 Headache Questions [...] Lymph 1.00 - 4.00 k/uL 0.84 Abs [place] <0.87 k/uL 0.06 Abs Eosin <0.46 k/uL [...] spontaneous and fluent without dysarthria. Short and extermination supervisor memory, cognition and general fund of knowledge [...] XL, Qudexy) Anti-Depressant and Antipsychotic Amitriptyline (Elavil) [place] (Eskalith, Lithobid) Nortriptyline (Pamelor, Aventyl) Blood Pressure [...] (ZOMIG) 5 mg nasal spray Use 1 [place] in the nose as needed at onset [...] 40 minutes Logan Barth APRN.FADY Headache Section [facility] July 10, 2023 documented in this encounter [facility] 07-10-2023 Note HNO ID: [id number] Author: LOGAN BARTH APRN.FADY Service: ? Author [...] visit. Either the patient or their legal benefits representative has been informed of the risks [...] XL, Qudexy) Anti-Depressant and Antipsychotic Amitriptyline (Elavil) [place] (Eskalith, Lithobid) Nortriptyline (Pamelor, Aventyl) Anti-Migraine Dihydroergotamine [...] ZOLMitriptan (ZOMIG) 5 mg nasal sprayUse 1 [place] in the nose as needed at onset [...] these with the patient: yes Logan Barth APRN.PASTRYCOOK HEADACHE SCORES: 12/12/2022 03/22/2023 07/10/2023 Headache Questions ER visits since last office visit: 6 6 8 Hospital stays [facility] (more content not included)... [facility] 06-26-2023 Telephone encounter Note Called Pt to clarify ER visit. States she was seen this morning at [facility] and given a Compazine and steroid shot States she cannot remember the name of steroid that was given. Information passed on to care team. Marc TOMAS, RN Clinical Motorboat Operator [facility] 06-26-2023 Miscellaneous Notes Called Pt to clarify ER visit. States she was seen this morning at [facility] and given a Compazine and steroid shot States she cannot remember the name of steroid that was given. Information passed on to care team. Marc TOMAS, RN Clinical Motorboat Operator [facility] Headache [facility] documented in this encounter [facility] 06-26-2023 Telephone encounter Note Forwarded to provider for review. PAPO: 04/14/2023 with Suzan Driver APRN.PASTRYCOOK Future OV: None scheduled [facility] 06-26-2023 Miscellaneous Notes Forwarded to provider for review. PAPO: 04/14/2023 with Suzan Driver APRN.PASTRYCOOK Future OV: None scheduled MyChart message sent to patient to gain more information in regards to patient's migraine. documented in this encounter [facility] 06-26-2023 Telephone encounter Note MyChart message sent to patient to gain more information in regards to patient's migraine. [facility] 04-14-2023 Instructions Suzan Driver APRN.FADY - 04/14/2023 [...] as the of each month or the 15th of [...] video on how to give the injection: [email or web address].[email or web address]emids/ Aimovig must be approved by your insurance [...] refilled without delays. 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 Short and senior care memory, cognition and general fund of knowledge [...] which included preparing to see the patient, [id number] patient care, completing clinical documentation, obtaining and/or reviewing separately obtained history, performing a medically appropriate examination, counseling and educating the patient/family/caregiver, and ordering medications, tests, or procedures. Suzan Driver APRN.FADY Headache Section [facility] documented in this encounter [facility] 04-14-2023 Note HNO ID: [id number] Author: SUZAN DRIVER APRN.FADY Service: ? 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 Short and senior care memory, cognition and general fund of knowledge [...] which included preparing to see the patient, [id number] patient care, completing clinical documentation, obtaining and/or reviewing separately obtained history, performing a medically appropriate examination, counseling and educating the patient/family/caregiver, and ordering medications, tests, or procedures. Suzan Driver APRN.PASTRYCOOK Headache Section [facility] 04-14-2023 Note HNO ID: [id number] Author: INOCENCIO NAIR RN Service: ? Author Type: Registered Nurse Type: Progress Notes Filed: 04/14/2023 11:51 Note Text: Pt in for 3rd day of infusion. Pt rated headache 6/10. Pt has severe nausea and moderate dizziness. Educated pt on medications to be administered. Pt agreed to proceed as ordered. 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 @0915: Patient tearful and c/o PIV site burning and very painful. No infiltration or redness of site noted, Ice-pack placed over PIV site. After a few minutes pt reported the ice-pack did not help and wanted PIV to be removed. PIV site removed. Patient remained very anxious and tearful, and requesting if anything else can be given for anxiety. [employer] PEDIATR[facility] NP notified. New PIV site started, 2nd dose of Benadryl given for anxiety. 2nd line: Compazine given for severe nausea. Per [employer] P[facility] NP to hold Periactin today as the two doses of Benadryl and Compazine can cause drowsiness. Pts infusion complete, tolerated infusion. Headache 4/10. Pt stated no nausea and moderate dizziness. PIV site removed. Pt discharged from txt room at 1124 via wheelchair to ride in lobby. [facility] 04-14-2023 History of Presen t illness Narrative Pt in for 3rd day of infusion. Pt rated headache 6/10. Pt has severe nausea and moderate dizziness. Educated pt on medications to be administered. Pt agreed to proceed as ordered. 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 @0915: Patient tearful and c/o PIV site burning and very painful. No infiltration or redness of site noted, Ice-pack placed over PIV site. After a few minutes pt reported the ice-pack did not help and wanted PIV to be removed. PIV site removed. Patient remained very anxious and tearful, and requesting if anything else can be given for anxiety. [employer] [facility] NP notified. New PIV site started, 2nd dose of Benadryl given for anxiety. 2nd line: Compazine given for severe nausea. Per [employer] P[facility]IATR[facility] NP to hold Periactin today as the two doses of Benadryl and Compazine can cause drowsiness. Pts infusion complete, tolerated infusion. Headache 4/10. Pt stated no nausea and moderate dizziness. PIV site removed. Pt discharged from txt room at 1124 via wheelchair to ride in [facility]. documented in this encounter [facility] 04-13-2023 Note HNO ID: [id number] Author: JOHANA CANCINO RN Service: ? Author [...] She is working with a psychiatrist in [place] . Voiced stress is her biggest trigger for headaches. 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 I mentioned to patient our reboot program . Patient very interested to learn about it. Message send to our carriage rider and Rhina Lim to set up patient for evaluation. 1020 Patient sleeping on and off. Nausea subsiding. Patient declined Zofran. Stated Zofran ineffective. 1050 Infusion complete. Patient slept on and off. Nausea resolved. PINEDA 6/10. Patient verbal , appears sedated . D/c via wheel chair to her in [facility]. [facility] 04-13-2023 History of Presen t [...] She is working with a psychiatrist in [place] . Voiced stress is her biggest trigger for headaches. 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 I mentioned to patient our reboot program . Patient very interested to learn about it. Message send to our carriage rider and Rhina Lim to set up patient for evaluation. 1020 Patient sleeping on and off. Nausea subsiding. Patient declined Zofran. Stated Zofran ineffective. 1050 Infusion complete. Patient slept on and off. Nausea resolved. PINEDA 6/10. Patient verbal , appears sedated . D/c via wheel chair to her in [facility]. documented in this encounter [facility] 04-13-2023 Miscellaneous Notes Patient is currently receiving infusions for headache. She is interested in learning about reboot program. Please schedule for evaluation. 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 Short and extermination supervisor memory, cognition and general fund of knowledge [...] which included preparing to see the patient, [id number] patient care, completing clinical documentation, obtaining and/or reviewing separately obtained history, performing a medically appropriate examination, counseling and educating the patient/family/caregiver, and ordering medications, tests, or procedures. Suzan Driver APRN.FADY Headache Section [facility] documented in this encounter [facility] 04-12-2023 Note HNO ID: [id number] Author: SUZAN DRIVER APRN.PASTRYCOOK Service: ? 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 Short and senior care memory, cognition and general fund of knowledge [...] which included preparing to see the patient, [id number] patient care, completing clinical documentation, obtaining and/or reviewing separately obtained history, performing a medically appropriate examination, counseling and educating the patient/family/caregiver, and ordering medications, tests, or procedures. Suzan Driver APRN.PASTRYCOOK Headache Section [facility] 04-12-2023 Note HNO ID: [id number] Author: SUZAN JEFF RN Service: ? Author [...] vs oral periactin for sedation. Rhina Driver PEDIATRIC NP updated and agreeable. PIV started on 3rd [...] dizziness. Pt discharged from treatment room with speedboat driver via wheelchair due to effects from oral medications. [facility] 04-12-2023 History of Presen t illness Narrative 1105 Patient in for first day of IV infusions. Patient rated headache 8/10. Patient stated severe nausea and mild dizziness. Patient educated on medications to be administered. Patient verbalized understanding and agreed to proceed with infusions. Patient requested the PRN IV Benadryl vs oral periactin for sedation. [facility] P[facility]IATR[facility] NP updated and agreeable. PIV started on 3rd [...] dizziness. Pt discharged from treatment room with speedboat driver via wheelchair due to effects from oral medications. documented in this encounter [facility] 04-12-2023 Instructions Suzan Driver APRN.PASTRYCOOK - 04/12/2023 11:52 AM EST General Headache [...] much light. These can be obtained at [employer]emids or [employer].emids Foods: see list below. 2. Limit use of acute treatments (uocw-ial-zfrdblj medications, triptans, etc.) to no more than [...] and quiet environment. Relax and reduce stress. Tfgqail7Rwaqy is a free catrina that can instruct you on some simple relaxtion and breathing techniques. Http://[employer].emids is a free website that provides teaching [...] ensuing treatment plans will be released via Buyou and discussed during your follow-up appointment. Follow-up appointments are primarily provided by the Nurse Practitioners and Physician s Assistants in order to provide timely, accessible care. [employer]: Please ask the schedulers to give you an activation code. The main way of communication is by [employer] rather than phone lines, so if you have not signed up, please do so. [employer]t is also the way that you can review your labs and testing. We are not able to contact everyone to tell them results are normal. If you do not hear back from us regarding testing you have had, it should be considered normal or within normal range. If you have any questions about the results, you are free to message us. Buyou is meant for simple questions regarding medications, possible side effects, or other simple straight forward questions in limited sentences, rather than multiple paragraphs of discussion. Buyou is not meant for, or efficient for these complex questions, extensive questions, extensive medication adjustments, complex new symptoms or concerns. These issues beyond simple questions require a follow up visit with myself, one of our physician assistants, nurse practitioners, or a Virtual Visit via computer or smart phone, as detailed further down. Please contact [employer] if you are having issues with Buyou or logging in to your virtual visit appointment. You can reach them at [phone] Refills: Please pay attention to when your [...] pepperoni, Pickled reynoso Pods of broad carmona (Ethiopian beans, Hungarian pea pods, Luxembourgish (jc) beans, frazier and navy beans Ripe [...] convincingly provoke headaches. documented in this encounter [facility] 04-03-2023 Miscellaneous Notes Ambulatory Pharmacy Prior Authorization Note Provider Intervention Required?: No- Pharmacy completed on your behalf. Rx Plan: Medicaid MCO ([facility]) Drug: Aimovig 70MG/ML auto-injectors Cover My Meds Chong: [id number] Determination: Approved Prior Authorization/Case #: n/a Prior [...] refills. Prescriptions will now be processed through [facility] Home Delivery Pharm[facility] for determination of next steps. For questions relating to this submission, please contact [facility] Delivery [facility] at [phone] [facility] received prescription(s) for Aimovig 70MG/ML auto-injectors . Benefits investigation was conducted, indicating that a prior authorization is required. PA was initiated and pending review through [employer]. All pertinent clinical information was submitted to insurance. CMM Chong: [id number] Ordering Provider: Logan Barth APRN.CNP Murtaugh, Alisha, RN [facility] Delivery [facility] P: , F: documented in this encounter [facility] 03-23-2023 Note HNO ID: [id number] Author: LOGAN BARTH APRN.FADY Service: ? Author [...] visit. Either the patient or their legal benefits representative has been informed of the risks [...] XL, Qudexy) Anti-Depressant and Antipsychotic Amitriptyline (Elavil) [place] (Eskalith, Lithobid) Nortriptyline (Pamelor, Aventyl) Anti-Migraine Dihydroergotamine [...] ZOLMitriptan (ZOMIG) 5 mg nasal sprayUse 1 [place] in the nose as needed at onset [...] lamoTRIgine (LAMICTAL) (more content not included)... [facility] 12-13-2022 Miscellaneous Notes Images from the original note were not included. Called patient to schedule for 3 days of Non DHE IV infusions. She started she was currently driving and would call back to schedule Logan Barth APRN.PASTRYCOOK P Headache Infusion Scheduling Pool; P C21 Botox Pool Pls schedule for infusions, and also her next botox treatment - thank you. KG documented in this encounter [facility] 12-13-2022 Miscellaneous Notes PA submitted through CoverMyMeds for Orphenadrine Citrate ER 100mg. Chong Code: [id number] documented in this encounter [facility] 12-09-2022 Miscellaneous Notes [...] Name: Emory Reilly documented in this encounter [facility] 11-11-2022 History of [...] d/c since symptoms have resolved. Suzan Driver APRN.PASTRYCOOK 0824: Patient in for first day of IV infusions. Patient rated headache 8/10. Patient stated severe nausea and severe dizziness. Patient educated on medications to be administered. Patient verbalized understanding and agreed to proceed with infusions. 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 She would like PRN benadryl for [...] nausea and denied dizziness. 1055: Suzan Driver PEDIATRIC NP in txt room to see patient. [...] Driver NP notified. documented in this encounter [facility] 11-10-2022 History of Presen t illness Narrative Images from the original note were not included. Headache Center - Virtual Visit Infusion Triage This visit was conducted as a virtual visit, with patient's permission, via ZOOM. It required patient-provider interaction for the medical decision making as documented below. Patient stated name and Patient location [facility] I have communicated my name and active licensure. The patient's identity and physical location were verified at the time of this visit. Either the patient or their legal benefits representative has been informed of the risks [...] Lymph 1.00 - 4.00 k/uL 0.84 (L) [place]% % 0.7 Abs [place] <0.87 k/uL 0.06 Eosin% % 0.1 Abs [...] 2.7 TSH 0.270 - 4.200 mIU/L 0.537 [place] 0.6 - 1.2 mmol/L 0.1 (L) Analgesic Ketorolac (Toradol) Anti-Convulsant Lamotrigine (Lamictal) Topiramate (Topamax, Trokendi XL, Qudexy) Anti-Depressant and Antipsychotic Amitriptyline (Elavil) [place] (Eskalith, Lithobid) Nortriptyline (Pamelor, Aventyl) Anti-Migraine Dihydroergotamine [...] ZOLMitriptan (ZOMIG) 5 mg nasal spray^Use 1 [place] in the nose as needed at onset [...] these with the patient: yes Ольга Aguilar APRN.PASTRYCOOK HEADACHE SCORES: Headache Questions 06/24/2022 08/31/2022 09/12/2022 [...] in rate, volume and articulation. Short and extermination supervisor memory, cognition and general fund of knowledge [...] Service: Virtual Visit 25 minutes Ольга Aguilar APRN.PASTRYCOOK Headache Section [facility] November 10, 2022 documented in this encounter [facility] 11-10-2022 Miscellaneous Notes PATIENT SCHEDULED FOR TRIAGE [...] get infusions scheduled. Number to return call [phone] Okay to leave a message ? Yes Last office visit [facility] Next office visit Not scheduled. Thank you calling [facility]. You will receive a return call within 48 hours ( or 2 business days if close to the weekend). If you feel that this is an urgent issue and needs immediate attention, it is recommended that you contact your primary care provider office or proceed to your nearest Urgent Care Center of Emergency Room ED for evaluation/treatment. documented in this encounter [facility] 10-06-2022 Miscellaneous Notes Ambulatory Pharmacy Prior Authorization Note Provider Intervention Required?: No- Pharmacy completed on your behalf. Rx Plan: Medicaid MCO ([facility]) Drug: Zomig 5MG nasal spray Cover My Meds Chong: [id number] Determination: Approved Prior Authorization/Case #: n/a Prior [...] refills. Prescriptions will now be processed through [facility] Home Delivery Pharm[facility] for determination of next steps. For questions relating to this submission, please contact [facility] Delivery Pharm[facility] at [phone] [facility] Delivery [facility] received prescription(s) for Zomig 5MG nasal spray . Benefits investigation was conducted, indicating that a prior authorization is required. PA was initiated and pending review through [employer]. All pertinent clinical information was submitted to insurance. CMM Chong: [id number] Ordering Provider: Logan Barth APRN.Angely Schaefer RN [facility] Delivery [facility] P: , F: documented in this encounter [facility] 09-28-2022 Miscellaneous Notes Patient last seen on 09/12/22. documented in this encounter [facility] 08-31-2022 History of Presen t illness Narrative Headache Center - Follow up Virtual Visit During this COVID-19 pandemic, patient's headache clinic evaluation was scheduled as a virtual visit using the following platform Zoom - patient currently located in [place] Coni Nicholson was identified by name and [...] visit. Either the patient or their legal benefits representative has been informed of the risks [...] She has been seeing one of the PEDIATRIC NP's. It sounds like the plan is Emgality and Zomig nasal spray but it has been 2 months and she still hasn't heard about whether it has been approved. Has infusions which helped some. Mcfaddin keppra worked the best. Has an appt with PEDIATRIC NP in a week. I will give jeremy [...] XL, Qudexy) Anti-Depressant and Antipsychotic Amitriptyline (Elavil) [place] (Eskalith, Lithobid) Nortriptyline (Pamelor, Aventyl) Anti-Migraine Naratriptan [...] (ZOMIG) 5 mg nasal spray Use 1 [place] in the nose as needed. SPRAY IN [...] these with the patient: yes Logan Barth APRN.PASTRYCOOK HEADACHE SCORES: Headache Questions 06/24/2022 08/31/2022 ER [...] spontaneous and fluent without dysarthria. Short and extermination supervisor memory, cognition and general fund of knowledge [...] XL, Qudexy) Anti-Depressant and Antipsychotic Amitriptyline (Elavil) [place] (Eskalith, Lithobid) Nortriptyline (Pamelor, Aventyl) Blood Pressure [...] 30 minutes Logan Barth APRN.CNP Headache Section [facility] August 31, 2022 documented in this encounter [facility] 08-11-2022 Miscellaneous Notes Patient just completed 3 days of Infusions 07/27, 07/28, and 07/29. She is also scheduled for a follow up on 08/16. Would you like me to try to move her appt sooner? Patient last seen on 08/08/22. 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 Vida Vazquez RN August 10, 2022 10:01 AM documented in this encounter [facility] 08-08-2022 History of Presen t illness Narrative VV I have communicated my name and active licensure. The patient's identity and physical location were verified at the time of this visit. Either the patient or their legal benefits representative has been informed of the risks and benefits of -- and alternatives to -- treatment through a remote evaluation and consents to proceed with the evaluation remotely. Pt that I saw once 9 or so months ago. At the time, did not need preventative med. Since, the PINEDA's have worsened. She has been seeing one of the PEDIATRIC NP's. It sounds like the plan is Emgality and Zomig nasal spray but it has been 2 months and she still hasn't heard about whether it has been approved. Has infusions which helped some. Mcfaddin keppra worked the best. Has an appt with PEDIATRIC NP in a week. I will give keppra today until she can find out where emgality and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 Specialty Diagnoses / Procedures Referred By Contac t Referred To Contact Diagnoses Intractable chronic migraine without aura and without status migrainosus Procedures PROVIDER ORDERED FOLLOW UP OFFICE/OUTPATIENT NEW HIGH MDM 60 MINUTES Logan Barth, UMANG.PASTRYCOOK [address] [place] [address] Referral ID Status Reason Start Date Expiration Date Visits Requested Visits Authorized [id number] Authorized PCP Requested Referral 10/10/2023 07/09/2024 1 1 Specialty Diagnoses / Procedures Referred By Contac t Referred To Contact Logan Barth APRN.PASTRYCOOK [address] [place] [address] Referral ID Status Reason Start Date Expiration Date V isits Requested Visits Authorized [id number] Authorized 07/10/2023 09/22/2023 1 1 Specialty Diagnoses / Procedures Referred By Contac t Referred To Contact Psychology Diagnoses Psychogenic nonepileptic seizure Procedures CONSULT TO PSYCHOLOGY OFFICE/OUTPATIENT NEW HIGH MDM 60 MINUTES Curtis Lepe PA-C [address] [place] [address] Referral ID Status Reason Start Date Expiration Date Visits Requested Visits Authorized [id number] Pending Review PCP Requested Referral 08/18/2023 08/17/2024 1 1 Additional Source Comments Source Comments (unrecognize d section and content) In the event this informatio n is protected by the Federal Confidentiality of Alcohol and Drug Abuse Patient Records regulations: The Federal rules restrict any use of the information to criminally investigate or prosecute any alcohol or drug abuse patient.[facility] Rehabilitation[facility] the event this information is protected by the Federal Confidentiality of Alcohol and Drug Abuse Patient Records regulations: The Federal rules restrict any use of the information to criminally investigate or prosecute any alcohol or drug abuse patient.[facility] RehabilitationIn the event this information is protected by the Federal Confidentiality of Alcohol and Drug Abuse Patient Records regulations: The Federal rules restrict any use of the information to criminally investigate or prosecute any alcohol or drug abuse patient.[facility] RehabilitationIn the event this information is protected by the Federal Confidentiality of Alcohol and Drug Abuse Patient Records regulations: The Federal rules restrict any use of the information to criminally investigate or prosecute any alcohol or drug abuse patient.[facility] RehabilitationIn the event this information is protected by the Federal Confidentiality of Alcohol and Drug Abuse Patient Records regulations: The Federal rules restrict any use of the information to criminally investigate or prosecute any alcohol or drug abuse patient.[facility] RehabilitationIn the event this information is protected by the Federal Confidentiality of Alcohol and Drug Abuse Patient Records regulations: The Federal rules restrict any use of the information to criminally investigate or prosecute any alcohol or drug abuse patient.[facility] RehabilitationIn the event this information is protected by the Federal Confidentiality of Alcohol and Drug Abuse Patient Records regulations: The Federal rules restrict any use of the information to criminally investigate or prosecute any alcohol or drug abuse patient.[facility] RehabilitationIn the event this information is protected by the Federal Confidentiality of Alcohol and Drug Abuse Patient Records regulations: The Federal rules restrict any use of the information to criminally investigate or prosecute any alcohol or drug abuse patient.[facility] RehabilitationIn the event this information is protected by the Federal Confidentiality of Alcohol and Drug Abuse Patient Records regulations: The Federal rules restrict any use of the information to criminally investigate or prosecute any alcohol or drug abuse patient.[facility] RehabilitationIn the event this information is protected by the Federal Confidentiality of Alcohol and Drug Abuse Patient Records regulations: The Federal rules restrict any use of the information to criminally investigate or prosecute any alcohol or drug abuse patient.[facility] RehabilitationIn the event this information is protected by the Federal Confidentiality of Alcohol and Drug Abuse Patient Records regulations: The Federal rules restrict any use of the information to criminally investigate or prosecute any alcohol or drug abuse patient.[facility] RehabilitationIn the event this information is protected by the Federal Confidentiality of Alcohol and Drug Abuse Patient Records regulations: The Federal rules restrict any use of the information to criminally investigate or prosecute any alcohol or drug abuse patient.[facility] RehabilitationIn the event this information is protected by the Federal Confidentiality of Alcohol and Drug Abuse Patient Records regulations: The Federal rules restrict any use of the information to criminally investigate or prosecute any alcohol or drug abuse patient.[facility] RehabilitationIn the event this information is protected by the Federal Confidentiality of Alcohol and Drug Abuse Patient Records regulations: The Federal rules restrict any use of the information to criminally investigate or prosecute any alcohol or drug abuse patient.[facility] RehabilitationIn the event this information is protected by the Federal Confidentiality of Alcohol and Drug Abuse Patient Records regulations: The Federal rules restrict any use of the information to criminally investigate or prosecute any alcohol or drug abuse patient.[facility] RehabilitationIn the event this information is protected by the Federal Confidentiality of Alcohol and Drug Abuse Patient Records regulations: The Federal rules restrict any use of the information to criminally investigate or prosecute any alcohol or drug abuse patient.[facility] RehabilitationIn the event this information is protected by the Federal Confidentiality of Alcohol and Drug Abuse Patient Records regulations: The Federal rules restrict any use of the information to criminally investigate or prosecute any alcohol or drug abuse patient.[facility] RehabilitationIn the event this information is protected by the Federal Confidentiality of Alcohol and Drug Abuse Patient Records regulations: The Federal rules restrict any use of the information to criminally investigate or prosecute any alcohol or drug abuse patient.[facility] RehabilitationIn the event this information is protected by the Federal Confidentiality of Alcohol and Drug Abuse Patient Records regulations: The Federal rules restrict any use of the information to criminally investigate or prosecute any alcohol or drug abuse patient.[facility] RehabilitationIn the event this information is protected by the Federal Confidentiality of Alcohol and Drug Abuse Patient Records regulations: The Federal rules restrict any use of the information to criminally investigate or prosecute any alcohol or drug abuse patient.[facility] RehabilitationIn the event this information is protected by the Federal Confidentiality of Alcohol and Drug Abuse Patient Records regulations: The Federal rules restrict any use of the information to criminally investigate or prosecute any alcohol or drug abuse patient.[facility] RehabilitationIn the event this information is protected by the Federal Confidentiality of Alcohol and Drug Abuse Patient Records regulations: The Federal rules restrict any use of the information to criminally investigate or prosecute any alcohol or drug abuse patient.[facility] RehabilitationIn the event this information is protected by the Federal Confidentiality of Alcohol and Drug Abuse Patient Records regulations: The Federal rules restrict any use of the information to criminally investigate or prosecute any alcohol or drug abuse patient.[facility] RehabilitationIn the event this information is protected by the Federal Confidentiality of Alcohol and Drug Abuse Patient Records regulations: The Federal rules restrict any use of the information to criminally investigate or prosecute any alcohol or drug abuse patient.[facility] RehabilitationIn the event this information is protected by the Federal Confidentiality of Alcohol and Drug Abuse Patient Records regulations: The Federal rules restrict any use of the information to criminally investigate or prosecute any alcohol or drug abuse patient.[facility] RehabilitationIn the event this information is protected by the Federal Confidentiality of Alcohol and Drug Abuse Patient Records regulations: The Federal rules restrict any use of the information to criminally investigate or prosecute any alcohol or drug abuse patient.[facility] RehabilitationIn the event this information is protected by the Federal Confidentiality of Alcohol and Drug Abuse Patient Records regulations: The Federal rules restrict any use of the information to criminally investigate or prosecute any alcohol or drug abuse patient.[facility] RehabilitationIn the event this information is protected by the Federal Confidentiality of Alcohol and Drug Abuse Patient Records regulations: The Federal rules restrict any use of the information to criminally investigate or prosecute any alcohol or drug abuse patient.[facility] RehabilitationIn the event this information is protected by the Federal Confidentiality of Alcohol and Drug Abuse Patient Records regulations: The Federal rules restrict any use of the information to criminally investigate or prosecute any alcohol or drug abuse patient.[facility] RehabilitationIn the event this information is protected by the Federal Confidentiality of Alcohol and Drug Abuse Patient Records regulations: The Federal rules restrict any use of the information to criminally investigate or prosecute any alcohol or drug abuse patient.[facility] RehabilitationIn the event this information is protected by the Federal Confidentiality of Alcohol and Drug Abuse Patient Records regulations: The Federal rules restrict any use of the information to criminally investigate or prosecute any alcohol or drug abuse patient.[facility] RehabilitationIn the event this information is protected by the Federal Confidentiality of Alcohol and Drug Abuse Patient Records regulations: The Federal rules restrict any use of the information to criminally investigate or prosecute any alcohol or drug abuse patient.[facility] RehabilitationIn the event this information is protected by the Federal Confidentiality of Alcohol and Drug Abuse Patient Records regulations: The Federal rules restrict any use of the information to criminally investigate or prosecute any alcohol or drug abuse patient.[facility] RehabilitationIn the event this information is protected by the Federal Confidentiality of Alcohol and Drug Abuse Patient Records regulations: The Federal rules restrict any use of the information to criminally investigate or prosecute any alcohol or drug abuse patient.[facility] RehabilitationIn the event this information is protected by the Federal Confidentiality of Alcohol and Drug Abuse Patient Records regulations: The Federal rules restrict any use of the information to criminally investigate or prosecute any alcohol or drug abuse patient.[facility] RehabilitationIn the event this information is protected by the Federal Confidentiality of Alcohol and Drug Abuse Patient Records regulations: The Federal rules restrict any use of the information to criminally investigate or prosecute any alcohol or drug abuse patient.[facility] RehabilitationIn the event this information is protected by the Federal Confidentiality of Alcohol and Drug Abuse Patient Records regulations: The Federal rules restrict any use of the information to criminally investigate or prosecute any alcohol or drug abuse patient.[facility] RehabilitationIn the event this information is protected by the Federal Confidentiality of Alcohol and Drug Abuse Patient Records regulations: The Federal rules restrict any use of the information to criminally investigate or prosecute any alcohol or drug abuse patient.[facility] RehabilitationIn the event this information is protected by the Federal Confidentiality of Alcohol and Drug Abuse Patient Records regulations: The Federal rules restrict any use of the information to criminally investigate or prosecute any alcohol or drug abuse patient.[facility] RehabilitationIn the event this information is protected by the Federal Confidentiality of Alcohol and Drug Abuse Patient Records regulations: The Federal rules restrict any use of the information to criminally investigate or prosecute any alcohol or drug abuse patient.[facility] RehabilitationIn the event this information is protected by the Federal Confidentiality of Alcohol and Drug Abuse Patient Records regulations: The Federal rules restrict any use of the information to criminally investigate or prosecute any alcohol or drug abuse patient.[facility] RehabilitationIn the event this information is protected by the Federal Confidentiality of Alcohol and Drug Abuse Patient Records regulations: The Federal rules restrict any use of the information to criminally investigate or prosecute any alcohol or drug abuse patient.[facility] RehabilitationIn the event this information is protected by the Federal Confidentiality of Alcohol and Drug Abuse Patient Records regulations: The Federal rules restrict any use of the information to criminally investigate or prosecute any alcohol or drug abuse patient.[facility] RehabilitationIn the event this information is protected by the Federal Confidentiality of Alcohol and Drug Abuse Patient Records regulations: The Federal rules restrict any use of the information to criminally investigate or prosecute any alcohol or drug abuse patient.[facility] RehabilitationIn the event this information is protected by the Federal Confidentiality of Alcohol and Drug Abuse Patient Records regulations: The Federal rules restrict any use of the information to criminally investigate or prosecute any alcohol or drug abuse patient.[facility] RehabilitationIn the event this information is protected by the Federal Confidentiality of Alcohol and Drug Abuse Patient Records regulations: The Federal rules restrict any use of the information to criminally investigate or prosecute any alcohol or drug abuse patient.[facility] RehabilitationIn the event this information is protected by the Federal Confidentiality of Alcohol and Drug Abuse Patient Records regulations: The Federal rules restrict any use of the information to criminally investigate or prosecute any alcohol or drug abuse patient.[facility] RehabilitationIn the event this information is protected by the Federal Confidentiality of Alcohol and Drug Abuse Patient Records regulations: The Federal rules restrict any use of the information to criminally investigate or prosecute any alcohol or drug abuse patient.[facility] RehabilitationIn the event this information is protected by the Federal Confidentiality of Alcohol and Drug Abuse Patient Records regulations: The Federal rules restrict any use of the information to criminally investigate or prosecute any alcohol or drug abuse patient.[facility] RehabilitationIn the event this information is protected by the Federal Confidentiality of Alcohol and Drug Abuse Patient Records regulations: The Federal rules restrict any use of the information to criminally investigate or prosecute any alcohol or drug abuse patient.[facility] RehabilitationIn the event this information is protected by the Federal Confidentiality of Alcohol and Drug Abuse Patient Records regulations: The Federal rules restrict any use of the information to criminally investigate or prosecute any alcohol or drug abuse patient.[facility] RehabilitationIn the event this information is protected by the Federal Confidentiality of Alcohol and Drug Abuse Patient Records regulations: The Federal rules restrict any use of the information to criminally investigate or prosecute any alcohol or drug abuse patient.[facility] RehabilitationIn the event this information is protected by the Federal Confidentiality of Alcohol and Drug Abuse Patient Records regulations: The Federal rules restrict any use of the information to criminally investigate or prosecute any alcohol or drug abuse patient.[facility] RehabilitationIn the event this information is protected by the Federal Confidentiality of Alcohol and Drug Abuse Patient Records regulations: The Federal rules restrict any use of the information to criminally investigate or prosecute any alcohol or drug abuse patient.[facility] RehabilitationIn the event this information is protected by the Federal Confidentiality of Alcohol and Drug Abuse Patient Records regulations: The Federal rules restrict any use of the information to criminally investigate or prosecute any alcohol or drug abuse patient.[facility] Reason for Visit (unrecogniz ed section and content) Reason Comments Infusion Headache Specialty Diagnoses / Procedures Referred By Contac t Referred To Contact Neurology / HEADACHE Diagnoses NON-DHE #1 Procedures INFUSION HEADACHE Suzan Driver, COLOR MAKER FORMULATOR.PASTRYCOOK [address] [place] [address] Neur Headache Main [address] [place] [address] Referral ID Status Reason Start Date Expiration Date V isits Requested Visits Authorized [id number] Authorized 04/12/2023 02/20/2024 99 99 Reason Comments Migraine Specialty Diagnoses / Procedures Referred By Contac t Referred To Contact Diagnoses Intractable chronic migraine without aura and without status migrainosus Procedures PROVIDER ORDERED FOLLOW UP OFFICE/OUTPATIENT [facility] 60 MINUTES Logan Barth, COLOR MAKER FORMULATOR.PASTRYCOOK [address] [place] [address] Referral ID Status Reason Start Date Expiration Date V isits Requested Visits Authorized [id number] Closed PCP Requested Referral 10/10/2023 07/09/2024 1 1 Specialty Diagnoses / Procedures Referred By Contac t Referred To Contact Diagnoses Intractable chronic migraine without aura and without status migrainosus Procedures INJECTION, EPTINEZUMAB-JJMR, 1 MG Logan Barth, COLOR MAKER FORMULATOR.PASTRYCOOK [address] [place] [address] Neur Headache Main [address] [place] [address] Referral ID Status Reason Start Date Expiration Date V isits Requested Visits Authorized [id number] Authorized 09/20/2023 03/22/2024 2 2 Reason Comments Nerve Block Specialty Diagnoses / Procedures Referred By Contac t Referred To Contact Neurology / HEADACHE Diagnoses NON-DHE #1 Procedures INFUSION HEADACHE Suzan Driver, COLOR MAKER FORMULATOR.PASTRYCOOK [address] [place] [address] Neur Headache [address] [place] [address] Reason Comments Headache Infusion Reason Comments Future Appointment [place], [place], Any Reason Comments Migraine seen at [place] yest erday for Migrane and D & C for miscarrage Reason Comments New Patient Reason Comments Orders Reason Comments Seizures Follow Up Reason Comments Migraine x 2 week lasts up to 4 days light sensitivity, sees silver dots looks like stars. Goes into convulsions during migraines. No meds for migraines has ever worked. Reason Comments Appointment infusion Specialty Diagnoses / Procedures [facility] Referred To Contact Neurology / HEADACHE Diagnoses DHE Procedures INFUSION HEADACHE Abdifatah Brady MD [address] [place] [address] Neur Headache [address] [place] [address] Referral ID Status Reason Start Date Expiration Date Visits Re quested Visits Authorized [id number] Closed 07/28/2022 09/26/2022 1 1 Reason Comments Chronic Migraine Reason Comments Chronic Migraine Reason Comments Insurance Authorization Zomig 5MG nasal spray Reason Comments Infusion Specialty Diagnoses / Procedures Referred By Contac t Referred To Contact Neurology / HEADACHE Diagnoses POSSIBLE DHE/WAITING FOR ORDERS Procedures INFUSION HEADACHE Self Neur Headache Main [address] [place] [address] Referral ID Status Reason Start Date Expiration Date V isits Requested Visits Authorized [id number] Authorized 11/10/2022 02/08/2023 1 99 Reason Onset [...] Headache Specialty Diagnoses / Procedures Referred By [facility] Referred To Contact Neurology / HEADACHE Diagnoses Chronic migraine without aura, intractable, without status migrainosus Migraines Nerve Block Procedures INJECTION AA&/STRD GREATER OCCIPITAL NERVE NERVE BLOCK Logan Barth, COLOR MAKER FORMULATOR.PASTRYCOOK [address] [place] [id number] Tyrone Dolan MD, PhD [address] [facility] [address] [place] [address] Referral ID Status Reason Start Date Expiration Date Visits Re quested Visits Authorized [id number] Closed 08/28/2023 02/20/2024 1 1 Reason Onset Date Comments Refill Request 11/10/2023 Specialty Diagnoses / Procedures Referred By [facility] Referred To Contact Diagnoses Intractable chronic migraine without aura and without status migrainosus Procedures INJECTION, EPTINEZUMAB-JJMR, 1 MG Logan Barth, COLOR MAKER FORMULATOR.PASTRYCOOK [address] [place] [address] Neur Headache [address] [place] [address] Reason Comments Fatigue Dizzy, shaky, very t [...] for preoperative pulmonary examination Mundo Martinez MD [address] [place] [address] Phone: tel: fax: Jefry Hills MD [address], [address] [address] Phone: tel: fax: Referral ID Status Reason Start Date Expiration Date Visits Requested Visits Authorized [id number] Pending Review Specialty Services Required 03/20/2024 03/20/2025 1 1 Reason Comments Wound Check Scheduled Active and Recently Administ ered Medications [...] section and content) DATE CREATED AUTHOR 12/26/2020 [facility] DATE CREATED AUTHOR AUTHOR'S ORGANIZ ATION 10/25/2021 [facility] DATE CREATED AUTHOR AUTHOR'S ORGANIZ ATION 05/26/2022 [facility] DATE CREATED AUTHOR AUTHOR'S ORGANIZ ATION 08/02/2022 [facility] DATE CREATED AUTHOR AUTHOR'S ORGANIZ ATION 03/23/2024 [facility] DATE CREATED AUTHOR AUTHOR'S ORGANIZ ATION 04/04/2024 [facility] EPIC DATE CREATED AUTHOR AUTHOR'S ORGANKYLE ATION 04/07/2024 [facility] Ordered Prescriptions (unrec ognized section and content) Prescription Sig Dispensed Refills Start Date End Da te lamoTRIgine (LAMICTAL) 25 MG tablet Take 2 tablets by mouth daily 30 tablet 3 10/21/2021 Care Teams (unrecognized sec tion and content) Fisheries Enforcement Officer Relationship Specialty Start Date End Date Angélica Arthur, COLOR MAKER FORMULATOR - PASTRYCOOK [address] [place] [address] PCP - General Nurse Practitioner 12/24/20 Fisheries Enforcement Officer Relationship Specialty Start Date End Date Hoy, Abdifatah M (Historical) PCP - General 05/21/13 Fisheries Enforcement Officer Relationship Specialty Start Date End Date Hoy, Abdifatah M (Historical) PCP - General 05/21/13 Fisheries Enforcement Officer Relationship Specialty Start Date End Date Hoy, Abdifatah M (Historical) PCP - General 05/21/13 Fisheries Enforcement Officer Relationship Specialty Start Date End Date Hoy, Abdifatah M (Historical) PCP - General 05/21/13 Fisheries Enforcement Officer Relationship Specialty Start Date End Date Hoy, Abdifatah M (Historical) PCP - General 05/21/13 Fisheries Enforcement Officer Relationship Specialty Start Date End Date Hoy, Abdifatah M (Historical) PCP - General 05/21/13 Fisheries Enforcement Officer Relationship Specialty Start Date End Date Hoy, Abdifatah M (Historical) PCP - General 05/21/13 Fisheries Enforcement Officer Relationship Specialty Start Date End Date Hoy, Abdifatah M (Historical) PCP - General 05/21/13 Fisheries Enforcement Officer Relationship Specialty Start Date End Date Hoy, Abdifatah M (Historical) PCP - General 05/21/13 Fisheries Enforcement Officer Relationship Specialty Start Date End Date Hoy, Abdifatah M (Historical) PCP - General 05/21/13 Fisheries Enforcement Officer Relationship Specialty Start Date End Date Hoy, Abdifatah M (Historical) PCP - General 05/21/13 Fisheries Enforcement Officer Relationship Specialty Start Date End Date Hoy, Abdifatah M (Historical) PCP - General 05/21/13 Fisheries Enforcement Officer Relationship Specialty Start Date End Date Hoy, Abdifatah M (Historical) PCP - General 05/21/13 Fisheries Enforcement Officer Relationship Specialty Start Date End Date Hoy, Abdifatah M (Historical) PCP - General 05/21/13 Fisheries Enforcement Officer Relationship Specialty Start Date End Date Hoy, Abdifatah M (Historical) PCP - General 05/21/13 Fisheries Enforcement Officer Relationship Specialty Start Date End Date Hoy, Abdifatah M (Historical) PCP - General 05/21/13 Fisheries Enforcement Officer Relationship Specialty Start Date End Date Hoy, Abdifatah M (Historical) PCP - General 05/21/13 Fisheries Enforcement Officer Relationship Specialty Start Date End Date Hoy, Abdifatah M (Historical) PCP - General 05/21/13 Fisheries Enforcement Officer Relationship Specialty Start Date End Date Hoy, Abdifatah M (Historical) PCP - General 05/21/13 Fisheries Enforcement Officer Relationship Specialty Start Date End Date Hoy, Abdifatah M (Historical) PCP - General 05/21/13 Fisheries Enforcement Officer Relationship Specialty Start Date End Date Hoy, Abdifatah M (Historical) PCP - General 05/21/13 Fisheries Enforcement Officer Relationship Specialty Start Date End Date Hoy, Abdifatah M (Historical) PCP - General 05/21/13 Fisheries Enforcement Officer Relationship Specialty Start Date End Date Hoy, Abdifatah M (Historical) PCP - General 05/21/13 Fisheries Enforcement Officer Relationship Specialty Start Date End Date Hoy, Abdifatah M (Historical) PCP - General 05/21/13 Fisheries Enforcement Officer Relationship Specialty Start Date End Date Hoy, Abdifatah M (Historical) PCP - General 05/21/13 Fisheries Enforcement Officer Relationship Specialty Start Date End Date Hoy, Abdifatah M (Historical) PCP - General 05/21/13 Fisheries Enforcement Officer Relationship Specialty Start Date End Date Hoy, Abdifatah M (Historical) PCP - General 05/21/13 Fisheries Enforcement Officer Relationship Specialty Start Date End Date Hoy, Abdifatah M (Historical) PCP - General 05/21/13 Fisheries Enforcement Officer Relationship Specialty Start Date End Date Hoy, Abdifatah M (Historical) PCP - General 05/21/13 Fisheries Enforcement Officer Relationship Specialty Start Date End Date Hoy, Abdifatah M (Historical) PCP - General 05/21/13 Fisheries Enforcement Officer Relationship Specialty Start Date End Date Hoy, Abdifatah M (Historical) PCP - General 05/21/13 Fisheries Enforcement Officer Relationship Specialty Start Date End Date Hoy, Abdifatah M (Historical) PCP - General 05/21/13 Fisheries Enforcement Officer Relationship Specialty Start Date End Date Hoy, Abdifatah M (Historical) PCP - General 05/21/13 Fisheries Enforcement Officer Relationship Specialty Start Date End Date Hoy, Abdifatah M (Historical) PCP - General 05/21/13 Fisheries Enforcement Officer Relationship Specialty Start Date End Date Lamont Shay MD [address] [place] [id number] PCP - General Family Medicine 03/14/23 Fisheries Enforcement Officer Relationship Specialty Start Date End Date Abdifatah Brady (Historical) PCP - General 05/21/13 Fisheries Enforcement Officer Relationship Specialty Start Date End Date Lamont Shay MD [address] [place] [phone] PCP - General Family Medicine 03/14/23 Fisheries Enforcement Officer Relationship Specialty Start Date End Date Lamont Shay MD [address] [place] [phone] PCP - General Family Medicine 03/14/23 Fisheries Enforcement Officer Relationship Specialty Start Date End Date Abdifatah Brady (Historical) PCP - General 05/21/13 Fisheries Enforcement Officer Relationship Specialty Start Date End Date Abdifatah Brady (Historical) PCP - General 05/21/13 Fisheries Enforcement Officer Relationship Specialty Start Date End Date Lamont Shay MD [address] [address] [place] [id number] PCP - General Family Medicine 03/14/23 Fisheries Enforcement Officer Relationship Specialty Start Date End Date Abdifatah Brady (Historical) PCP - General 05/21/13 Fisheries Enforcement Officer Relationship Specialty Start Date End Date Lamont Shay MD [address] [place] [phone] PCP - General Family Medicine 03/14/23 Fisheries Enforcement Officer Relationship Specialty Start Date End Date Lamont Shay MD [address] [place] [phone] PCP - General Family Medicine 03/14/23 Fisheries Enforcement Officer Relationship Specialty Start Date End Date Lamont Shay MD [address] [place] [address] PCP - General Family Medicine 03/14/23 Fisheries Enforcement Officer Relationship Specialty Start Date End Date Lamont Shay MD [address] [place] [address] PCP - General Family Medicine 03/14/23 Fisheries Enforcement Officer Relationship Specialty Start Date End Date Lamont Shay MD [address] [place] [address] PCP - General Family Medicine 03/14/23 Fisheries Enforcement Officer Relationship Specialty Start Date End Date Lamont Shay MD [address] [place] [address] PCP - General Family Medicine 03/14/23 Fisheries Enforcement Officer Relationship Specialty Start Date End Date Lamont Shay MD [address] [place] [address] PCP - General Family Medicine 03/14/23 Fisheries Enforcement Officer Relationship Specialty Start Date End Date Lamont Shay MD [address] [place] [address] PCP - General Family Medicine 03/14/23 Fisheries Enforcement Officer Relationship Specialty Start Date End Date Lamont Sahy MD [address] [place] [address] PCP - General Family Medicine 03/14/23 Fisheries Enforcement Officer Relationship Specialty Start Date End Date Lamont Shay MD [address] [place] [address] PCP - General Family Medicine 03/14/23 Fisheries Enforcement Officer Relationship Specialty Start Date End Date Lamont Shay MD [address] [place] [place] [address] PCP - General Family Medicine 03/14/23 Fisheries Enforcement Officer Relationship Specialty Start Date End Date Lamont Shay MD [address] [place] [address] PCP - General Family Medicine 03/14/23 Fisheries Enforcement Officer Relationship Specialty Start Date End Date Lamont Shay MD [address] [place] [address] PCP - General Family Medicine 03/14/23 Fisheries Enforcement Officer Relationship Specialty Start Date End Date Lamont Shay MD [address] [place] [phone] PCP - General Family Medicine 03/14/23 Fisheries Enforcement Officer Relationship Specialty Start Date End Date Lamont Shay MD PCP - General Family Medicine 06/22/22 Fisheries Enforcement Officer Relationship Specialty Start Date End Date Lamont Shay MD PCP - General Family Medicine 06/22/22 Fisheries Enforcement Officer Relationship Specialty Start Date End Date Lamont Shay MD PCP - General Family Medicine 06/22/22 Fisheries Enforcement Officer Relationship Specialty Start Date End Date Lamont Shay MD PCP - General Family Medicine 06/22/22 Fisheries Enforcement Officer Relationship Specialty Start Date End Date Lamont Shay MD PCP - General Family Medicine 06/22/22 Fisheries Enforcement Officer Relationship Specialty Start Date End Date Lamont Shay MD PCP - General Family Medicine 06/22/22 Fisheries Enforcement Officer Relationship Specialty Start Date End Date Corine Gold MD [address] [place] [address] PCP - General Internal Medicine 03/25/24 Fisheries Enforcement Officer Relationship Specialty Start Date End Date Corine Gold MD [address] [place] [address] PCP - General Internal Medicine 03/25/24 Fisheries Enforcement Officer Relationship Specialty Start Date End Date Corine Gold MD [address] [place] [address] PCP - General Internal Medicine 03/25/24 Fisheries Enforcement Officer Relationship Specialty Start Date End Date Corine Gold MD [address] [place] [address] PCP - General Internal Medicine 03/25/24 Fisheries Enforcement Officer Relationship Specialty Start Date End Date Lamont Shay MD [address] [place] [address] PCP - General Family Medicine 03/14/23 Inactive [...] 04/13/23 at 0819, Until Mon04/13/23 at 1315, Sedation/Dystonia/Akathis ia/Anxiety 3rd line Given [...] BE BASED ON THE PRIMARY CLINICAL RECORDS. [employer] provides no warranty or guarantee of the accuracy or completeness of information in this document.
[2024-04-07 13:39] VITALS: BP 155/86; PULSE 115; TEMP 37.4; O2SAT 96; BMI 45.3
--- NOTE | 2024-04-07 14:08 | ED_ITS ---
HPI HPI - General Adult General Chief complaint: Fever Stated complaint: POST SURGICAL ISSUE - STITCHES Time Seen by Provider: 04/07/24 13:57 Source: patient Mode of arrival: walk-in Limitations: no limitations History of Present Illness HPI narrative: 28-year-old female presents for pain. She is complaining of pain at her surgical incision site. She states she had her ovaries removed on March 28 in [place]. A few days ago, she cannot remember when, she was put on clindamycin by Dr. Blas and she has been taking it. Subsequently she developed a cough which is nonproductive. She checked her forehead temperature at home and it was 105 degrees just before coming into the emergency department but it was 99.4 degrees here. No vomiting or diarrhea. Related Data Home Medications ?Medication ?Instructions ?Recorded ?Confirmed baclofen 10 mg tablet 10 mg PO TID PRN spasms 07/20/22 03/30/24 diazepam 10 mg tablet 5 mg PO QID PRN seizures 07/20/22 03/30/24 epinephrine 0.3 mg/0.3 mL 0.3 mg IM Q10M PRN anaphylaxis 07/20/22 03/30/24 injection, auto-injector diphenhydramine HCl 25 mg capsule 75 mg PO Q6H PRN migraine headache 01/26/23 03/30/24 (Benadryl) trazodone 300 mg tablet 300 mg PO .qhs 03/03/23 03/30/24 lithium carbonate 300 mg tablet 600 mg PO Q12H 04/27/23 03/30/24 albuterol sulfate 90 mcg/actuation 2 puff inhalation Q4H PRN 08/16/23 03/30/24 aerosol inhaler shortness of breath or wheezing lamotrigine 150 mg tablet 150 mg PO BID 08/16/23 03/30/24 magnesium oxide 400 mg (241.3 mg 400 mg PO .qhs 08/16/23 03/30/24 magnesium) tablet promethazine 12.5 mg tablet 12.5 mg PO Q6H PRN nausea and 08/16/23 03/30/24 vomiting vilazodone 40 mg tablet 40 mg PO DAILY 08/16/23 03/30/24 zolmitriptan 5 mg nasal spray 1 spray intranasal Q2H PRN headache 08/16/23 03/30/24 Previous Rx's ?Medication ?Instructions ?Recorded ketorolac 10 mg tablet 10 mg PO Q8H PRN pain 2 days #6 05/13/23 tabs promethazine 25 mg rectal 25 mg IN Q6H PRN nausea and 01/15/24 suppository vomiting #6 ea sulfamethoxazole 800 1 tab PO BID 10 days #20 tabs 04/07/24 mg-trimethoprim 160 mg tablet (Bactrim DS) Allergies Allergy/AdvReac Type Severity Reaction Status Date / Time dihydroergotamine Allergy Unknown Hives Verified 04/07/24 13:39 vortioxetine Allergy Unknown Hives Verified 04/07/24 13:39 buspirone Allergy Hives Verified 04/07/24 13:39 carbamazepine Allergy Unknown Verified 04/07/24 13:39 levetiracetam (From Keppra) Allergy ITCHING Verified 04/07/24 13:39 azithromycin (From Zithromax) AdvReac Intermediate Hives Verified 04/07/24 13:39 bee venom protein (honey bee) AdvReac Intermediate Hives Verified 04/07/24 13:39 metoclopramide (From Reglan) AdvReac Intermediate panic Verified 04/07/24 13:39 adhesive tape AdvReac Mild Rash Verified 04/07/24 13:39 cephalexin (From Keflex) AdvReac Mild Hives Verified 04/07/24 13:39 dextromethorphan (From AdvReac Mild Unknown Verified 04/07/24 13:39 [place]on DM) pyrilamine (From [place]on DM) AdvReac Mild Unknown Verified 04/07/24 13:39 prochlorperazine (From AdvReac Anxiety Verified 04/07/24 13:39 Compazine) propranolol AdvReac Hives Verified 04/07/24 13:39 Opioid HPI Opioid Management Most Recent Opioid Data: Last Pain Scale 7 02/09/24 15:49 02/09/24 Last ORT Total Score 0 08/16/23 14:51 08/16/23 Last ORT Risk Category Low Risk 08/16/23 14:51 08/16/23 Ur Phencyclidine Scrn Negative (NEGATIVE) 08/16/23 15:15 0608/13 Review of Systems ROS Narrative A ten point review of systems is negative except as noted above. [facility] Medical History (Updated 04/07/24 @ 15:28 by Wild Kendall MD) Chronic pain disorder ?G89.4 - Chronic pain syndrome (ICD-10) Migraine ?G43.909 - Migraine, unspecified, not intractable, without status migrainosus (ICD-10) Seizure disorder ?G40.909 - Epilepsy, unspecified, not intractable, without status epilepticus (ICD-10) Bipolar disorder ?F31.9 - Bipolar disorder, unspecified (ICD-10) Pelvic pain ?R10.2 - Pelvic and perineal pain (ICD-10) Bilateral occipital neuralgia ?M54.81 - Occipital neuralgia (ICD-10) Combative behavior ?R46.89 - Other symptoms and signs involving appearance and behavior (ICD-10) PCOS (polycystic ovarian syndrome) ?E28.2 - Polycystic ovarian syndrome (ICD-10) Mitral valve prolapse ?I34.1 - Nonrheumatic mitral (valve) prolapse (ICD-10) GERD (gastroesophageal reflux disease) ?K21.9 - Gastro-esophageal reflux disease without esophagitis (ICD-10) Depression ?F32.A - Depression, unspecified (ICD-10) Blood in urine ?R31.9 - Hematuria, unspecified (ICD-10) Acne ?L70.9 - Acne, unspecified (ICD-10) Dyspareunia Brain mass ?G93.89 - Other specified disorders of brain (ICD-10) Kidney stones ?N20.0 - Calculus of kidney (ICD-10) COVID-19 ?U07.1 - COVID-19 (ICD-10) Bronchitis ?J40 - Bronchitis, not specified as acute or chronic (ICD-10) Asthma ?J45.909 - Unspecified asthma, uncomplicated (ICD-10) Stress incontinence ?N39.3 - Stress incontinence (female) (male) (ICD-10) Dysuria ?R30.0 - Dysuria (ICD-10) Anxiety ?F41.9 - Anxiety disorder, unspecified (ICD-10) Surgical History H/O laparoscopy (07/21/22) ?Z98.890 - Other specified postprocedural states (ICD-10) S/P RAVI-BSO ?Z90.710 - Acquired absence of both cervix and uterus (ICD-10) ?Z90.722 - Acquired absence of ovaries, bilateral (ICD-10) ?Z90.79 - Acquired absence of other genital organ(s) (ICD-10) Hx laparoscopic cholecystectomy ?Z90.49 - Acquired absence of other specified parts of digestive tract (ICD- 10) H/O: ?Z98.891 - History of uterine scar from previous surgery (ICD-10) History of appendectomy ?Z90.49 - Acquired absence of other specified parts of digestive tract (ICD- 10) Family History Other Acid reflux Acute renal disease Afib Chromosomal disorder Delayed developmental milestones Diabetes Family history of hypertension High cholesterol Neuro-irritability due to autonomic dysfunction 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 General: The patient has an occasional cough Skin: Warm, dry, no pallor noted. There is no rash noted. Head: Normocephalic, atraumatic Eye: Normal conjunctiva, no drainage Ears, Nose, Mouth, and Throat: oral mucosa is moist. Nares patent. Cardiovascular: Regular Rate and Rhythm Respiratory: Patient is in no distress, no accessory muscle use, lungs are clear to auscultation, no wheezing, rales or rhonchi GI: Obese and nondistended. Surgical wounds are healing well. There is no dehiscence. The incision just above her umbilicus has some mild erythema around it but I cannot express any pus from it. Musculoskeletal: The patient has no evidence of calf tenderness, no pitting edema, symmetrical pulses noted bilaterally Neurological: A&O, normal speech Psychiatric: Cooperative Constitutional Vital Signs, click to edit/add: Last Vital Signs Temp 99.4 F 04/07/24 13:39 Pulse 115 H 04/07/24 13:39 Resp 14 04/07/24 13:39 BP 155/86 H 04/07/24 13:39 Pulse Ox 96 04/07/24 13:39 O2 Del Method Room Air 04/07/24 13:39 Course Vital Signs Vital signs: Vital Signs Temperature 99.4 F 04/07/24 13:39 Pulse Rate 115 H 04/07/24 13:39 Respiratory Rate 14 04/07/24 13:39 Blood Pressure 155/86 H 04/07/24 13:39 Pulse Oximetry 96 04/07/24 13:39 Oxygen Delivery Method Room Air 04/07/24 13:39 Temperature 99.4 F 04/07/24 13:39 Pulse Rate 115 H 04/07/24 13:39 Respiratory Rate 14 04/07/24 13:39 Blood Pressure 155/86 H 04/07/24 13:39 Pulse Oximetry 96 04/07/24 13:39 Oxygen Delivery Method Room Air 04/07/24 13:39 Medical Decision Making MDM Narrative Medical decision making narrative: WBC mildly elevated. Case discussed with Dr. Blas who recommends adding Bactrim and this is being accomplished. Treatment diagnosis and follow-up were discussed with the patient. Differential Diagnosis Differential Diagnosis: Cellulitis, COVID, influenza Lab Data Lab results reviewed: Yes I reviewed the patient's lab results Labs: Lab Results 04/07/24 04/07/24 Range/Units 13:50 14:31 WBC 14.9 H (4.0-11.0) 10^3/uL RBC 4.38 (4.20-5.40) 10^6/uL Hgb 12.7 (12.0-16.0) g/dL Hct 37.8 (36.0-48.0) % MCV 86.3 (81.0-99.0) fL MCH 29.0 (26.7-34.0) pg MCHC 33.6 (29.9-35.2) g/dL RDW 12.7 (11.0-15.0) % Plt Count 231 (150-450) 10^3/uL MPV 9.3 L (9.5-13.5) fL Neut % (Auto) 80.9 H (43.0-75.0) % Lymph % (Auto) 10.8 L (20.5-60.0) % [place] % (Auto) 4.0 (1.7-12.0) % Eos % (Auto) 3.5 (0.9-7.0) % Baso % (Auto) 0.3 (0.2-2.0) % Neut # (Auto) 12.1 H (1.4-6.5) 10^3/uL Lymph # (Auto) 1.6 (1.2-3.8) 10^3/uL [place] # (Auto) 0.6 (0.3-0.8) 10^3/uL Eos # (Auto) 0.5 (0.0-0.7) 10^3/uL Baso # (Auto) 0.1 (0.0-0.1) 10^3/uL Abs Immat Gran (auto) 0.08 H (0.00-0.03) 10^3/uL Imm/Tot Granulo (auto) 0.5 (0.0-0.5) % Sodium 141 (136-145) mmol/L Potassium 3.7 (3.5-5.1) mmol/L Chloride 106 (98-107) mmol/L Carbon Dioxide 25.1 (21.0-32.0) mmol/L Anion Gap 13.6 BUN 10.0 (7.0-18.0) mg/dL Creatinine 0.64 (0.55-1.02) mg/dL Est GFR ( Amer) >60 (>=60 mL/min/1.73m^2) Est GFR (Non-Af Amer) >60 (>=60 mL/min/1.73m^2) BUN/Creatinine Ratio 15.6 Glucose 118 H (74-106) mg/dL Calcium 9.1 (8.5-10.1) mg/dL Influenza Type A Ag Negative Influenza Type B Ag Negative SARS-CoV-2 Ag (CV2AG) Negative (NEGATIVE) Discharge Plan Discharge Chief Complaint: Fever Clinical Impression: Cellulitis Patient Disposition: Home, Self-Care Time of Disposition Decision: 15:28 Condition: Good Mode of Transportation: Private Vehicle Prescriptions / Home Meds: New sulfamethoxazole-trimethoprim [Bactrim DS] 800-160 mg tablet 1 tab PO BID 10 Days Qty: 20 0RF No Action baclofen 10 mg tablet 10 mg PO TID PRN (Reason: spasms) diazepam 10 mg tablet 5 mg PO QID PRN (Reason: seizures) epinephrine 0.3 mg/0.3 mL auto-injector 0.3 mg IM Q10M PRN (Reason: anaphylaxis) Rx Instructions: for 2 doses trazodone 300 mg tablet 300 mg PO .qhs lithium carbonate 300 mg tablet 600 mg PO Q12H ketorolac 10 mg tablet 10 mg PO Q8H PRN (Reason: pain) 2 Days Qty: 6 0RF albuterol sulfate 90 mcg/actuation HFA aerosol inhaler 2 puff INHALATION Q4H PRN (Reason: shortness of breath or wheezing) lamotrigine 150 mg tablet 150 mg PO BID magnesium oxide 400 mg (241.3 mg magnesium) tablet 400 mg PO .qhs promethazine 12.5 mg tablet 12.5 mg PO Q6H PRN (Reason: nausea and vomiting) vilazodone 40 mg tablet 40 mg PO DAILY zolmitriptan 5 mg spray,non-aerosol 1 spray INTRANASAL Q2H PRN (Reason: headache) Rx Instructions: May repeat once if needed after =2 hours promethazine 25 mg suppository 25 mg IN Q6H PRN (Reason: nausea and vomiting) Qty: 6 0RF diphenhydramine HCl [Benadryl] 25 mg capsule 75 mg PO Q6H PRN (Reason: migraine headache) Print Language: Ugandan Instructions: Cellulitis (ED) Referrals: Lamont Blair MD [Primary Care Provider] - 1 week
[2024-04-07 14:15] LABS: Influenza Virus A Antigen Negative; Influenza Virus B Antigen Negative; Internal Control Within Normal Limits; SARS-CoV-2 Ag NEGATIVE (NEGATIVE)
[2024-04-07 14:35] LABS: Basophils Absolute Auto 0.1 10^3/uL (0.0-0.1); Basophils Percent Auto 0.3 % (0.2-2.0); Eosinophils Absolute Auto 0.5 10^3/uL (0.0-0.7); Eosinophils Percent Auto 3.5 % (0.9-7.0); Hematocrit 37.8 % (36.0-48.0); Hemoglobin 12.7 g/dL (12.0-16.0); Immature Granulocytes Abs Auto 0.08 10^3/uL (0.00-0.03); Immature Granulocytes Pct Auto 0.5 % (0.0-0.5); Lymphocytes Absolute Auto 1.6 10^3/uL (1.2-3.8); Lymphocytes Percent Auto 10.8 % (20.5-60.0); Mean Corpuscular HGB Conc 33.6 g/dL (29.9-35.2); Mean Corpuscular Volume 86.3 fL (81.0-99.0); Mean Platelet Volume 9.3 fL (9.5-13.5); Monocytes Absolute Auto 0.6 10^3/uL (0.3-0.8); Neutrophils Absolute Auto 12.1 10^3/uL (1.4-6.5); Neutrophils Percent Auto 80.9 % (43.0-75.0); Platelet Count 231 10^3/uL (150-450); Red Blood Count 4.38 10^6/uL (4.20-5.40); Red Cell Distribution Width 12.7 % (11.0-15.0); White Blood Count 14.9 10^3/uL (4.0-11.0)
[2024-04-07 14:44] LABS: Anion Gap 13.6; BUN Creatinine Ratio 15.6; Calcium 9.1 mg/dL (8.5-10.1); Carbon Dioxide 25.1 mmol/L (21.0-32.0); Chloride 106 mmol/L (98-107); Estimated GFR (African America >60 (>=60 mL/min/1.73m^2); Estimated GFR (Non-African Ame >60 (>=60 mL/min/1.73m^2); Glucose 118 mg/dL (74-106); Potassium 3.7 mmol/L (3.5-5.1); Sodium 141 mmol/L (136-145)
== END 2024-04-07 15:35 | disposition home or self-care (01) ==
PROVIDERS: Emergency Provider Emergency Medicine; PCP Family Medicine
DX: L03.818 Cellulitis of other sites (principal); Z90.710 Acquired absence of both cervix and uterus; Z90.722 Acquired absence of ovaries, bilateral; Z90.79 Acquired absence of other genital organ(s); Z90.49 Acquired absence of other specified parts of digestive tract; R05.9 Cough, unspecified
CPT/HCPCS: 36415; 80048; 85025; 87804; 87811; 99283

== ENCOUNTER 2024-04-16 14:44 | Outpatient (REF) | payer OTHER, SELFPAY ==
[2024-04-18 10:08] LABS: Age Gdln ACOG Testing Note (.); IGP, rfx Aptima HPV ASCU Note (.)
== END 2024-04-16 14:45 | disposition home or self-care (01) ==
LOC: LAB 14:44
PROVIDERS: PCP Family Medicine; Visit Provider Obstetrics & Gynecology
DX: Z01.419 Encounter for gynecological examination (general) (routine) without abnormal findings (principal)
CPT/HCPCS: 88175

== ENCOUNTER 2024-04-20 13:51 | Emergency (ER) | payer OTHER, SELFPAY ==
[2024-04-20 13:56] VITALS: BP 122/87; PULSE 98; TEMP 36.5; O2SAT 99; BMI 45.7
--- OUTSIDE RECORDS SUMMARY | 2024-04-20 13:57 | XMS_ITS | CCD ---
Author Organization [facility] Care Team Providers Care Interior Horticulturist Name Role Phone Abdifatah Brady (Historical) Primary Care Provide r Unavailable Kuns RELATIONSHIP ADVISOR - INTENSIVE CARE UNIT NURSE, Derik Santiago Primary Care Provider [phone] DANIELKrupa DERIK Santiago Primary Care Unavailable KEVEN CHING Attending Unavailable Kuns RELATIONSHIP ADVISOR - INTENSIVE CARE UNIT NURSE, Derik Santiago Primary Care Provider LUCILA MOTA Attending Unavailable KINGS STEWART Referring Unavailable SANDHYA DERIK R Primary Care Unavailable LUCILA MOTA Admitting Unavailable Abdifatah Brady (Historical) Primary Care Provide r Unavailable KRISTOFER BURCIAGA Attending Unavailab le ROOPAZay R Referring Unavailable Abdifatah Brady (Historical) Primary Care Provide r Unavailable BRICE ., CHAYITO Admitting Unavailable BRICE ., CHAYITO Attending Unavailable BRICE ., CHAYITO Consulting Unavailable LAURITA, DR LAMONT Garcia Primary Care Unavailable ROOPA ., DR GUTIERREZ Admitting Unavailable ROOPA ., DR GUTIERREZ Attending Unavailable NADMIKEY, DR LAMONT Garcia Primary Care Unavailable ROOPA ., DR GUTIERREZ Consulting Unavailable DIAB ., [facility] Attending Unavailable DIAB ., [facility] Consulting Unavailable MISC, DR GOMEZ Primary Care Unavailable DIAB ., [facility] Admitting Unavailable MANJINDER DEAL Attending Unavailable MANJINDER DEAL Consulting Unavailable MANJINDER DEAL Admitting Unavailable LAURITA, DR LAMONT Garcia Primary Care Unavailable JEFFERSON .MARY Consulting Unavaildeshaun e ANASTASIA, DR GOMEZ Primary Care Unavailable PAY ., DR KU Admitting Unavailable PAY ., DR KU Attending Unavailable ROOPA ., DR GUTIERREZ Consulting Unavailable ROOPA ., DR GUTIERREZ Admitting Unavailable ROOPA ., DR GUTIERREZ Attending Unavailable REQUEST, DR ABDALLA LISTED Primary Care Unavaila SUKHDEEP Centeno Attending Unavailable SUKHDEEP DOCKERY Admitting Unavailable KUNS, DR DERIK Santiago Primary Care Unavailable GRECHNY ., MARY WHITNEY Consulting Unavailabl e ANASTASIIA, HOSSAM Consulting Unavailable SUKHDEEP DOCKERY Attending Unavailable KUNKrupa, DR DERIK Santiago Primary Care Unavailable SUKHDEEP DOCKERY Admitting Unavailable HAY ., DR HARMAN Consulting Unavailable KATMINOO, SUKHDEEP Holley Consulting Unavailable NABILA, TONY Consulting Unavailable FAWWAD, LEW H Admitting Unavailable FAWWAD, LEW H Attending Unavailable GAIL, DR LOPEZ Santiago Consulting Unavailable REQUEST, DR NONE LISTED Primary Care Unavaila ble PAY ., DR KU Consulting Unavailable SAY, MANJINDER Consulting Unavailable FAWWAD, LEW H Consulting Unavailable SAY, MANJINDER Admitting Unavailable SAY, MANJINDER Attending Unavailable SAY, MANJINDER Consulting Unavailable SANDHYA, DR DERIK Santiago Primary Care Unavailable SAY, MANJINDER Attending Unavailable SAY, MANJINDER Consulting Unavailable REQUEST, NONE LISTED Primary Care Unavaila ble SAY, MANJINDER Admitting Unavailable PATRICIA WALSH Consulting Unavailable [facility], DR GOMEZ Primary Care Unavailable HAY ., DR HARMAN Attending Unavailable HAY ., DR HARMAN Admitting Unavailable NEWATIA, NICHOLAS Consulting Unavailable UNLU, SINDY Consulting Unavailable ROOPA ., DR GUTIERREZ Admitting Unavailable ROOPA ., DR GUTIERREZ Consulting Unavailable [facility] Primary Care Unavailable ROOPA ., DR GUTIERREZ Attending Unavailable KUNS, DR DERIK Santiago Primary Care Unavailable ROOPA ., DR GUTIERREZ Admitting Unavailable ROOPA ., DR GUTIERREZ Attending Unavailable ROOPA ., DR GUTIERREZ Consulting Unavailable ROOPA ., DR GUTIERREZ Admitting Unavailable ROOPA ., DR GUTIERREZ Attending Unavailable NADERER, DR LAMONT Garcia Primary Care Unavailable [facility] Primary Care Unavailable HAY ., DR HARMAN Consulting Unavailable HAY ., DR HARMAN Admitting Unavailable HAY ., DR HARMAN Attending Unavailable KONSTNICOLE STEPHENS Consulting Unavailable KUNKrupa, DR DERIK Santiago Primary Care Unavailable MARKER ., DR ONEAL Attending Unavailable MARKER ., DR ONEAL Consulting Unavailable MARKER ., DR ONEAL Admitting Unavailable SCHNECHRISTINE ROBIN Consulting Unavailable SAY, MANJINDER Attending Unavailable SAY, MANJINDER Consulting Unavailable SAY, MANJINDER Admitting Unavailable SANDHYA, DR DERIK Santiago Primary Care Unavailable KUNKrupa, DR DERIK Santiago Referring Unavailable ROOPA ., DR GUTIERREZ [...] Consulting Unavailable ALECIA ., DENNIS Consulting Unavailable KUNKrupa, DR DERIK Santiago Primary Care Unavailable ROOPA ., DR GUTIERREZ Admitting Unavailable ROOPA ., DR GUTIERREZ Attending Unavailable COELHO, MARIPOSA Consulting Unavailable LESLY, ALBA Primary Care Unavailable HAY ., DR HARMAN Attending Unavailable HAY ., DR HARMAN Consulting Unavailable HAY ., DR HARMAN Admitting Unavailable AHDOOT, NELI Consulting Unavailable Abdifatah Brady (Historical) Primary Care Provide r Unavailable Lamont Shay MD Primary Care Provider [phone] Lamont Shay MD Primary Care Provider [phone] SAGAR BARTH Attending Unavailable GREEN, KOLI Referring Unavailable BIDDLECOM, SUZAN Referring Unavailable BIDDLECOM, SUZAN Referring Unavailable BIDDLECOM, SUZAN Attending Unavailable ОЛЬГА AGUILAR Attending Unavailable BIDDLECOM, SUZAN Referring Unavailable GREEN, SAGAR Referring Unavailable ОЛЬГА AGUILAR Attending Unavailable GREEN, KOLI Referring Unavailable GREEN, SAGAR Attending Unavailable CURTIS LEPE Attending Unavailable BIDDLECOM, SUZAN Referring Unavailable GREEN, KOLI Referring Unavailable GREENSAGAR Attending Unavailable RAIZA MORALES Attending Unavailable BIDDLECOM, SUZAN Referring Unavailable GREENSAGAR Attending Unavailable BIDDLECOM, SUZAN Referring Unavailable BIDDLECOM, SUZAN Attending Unavailable BIDDLECOM, SUZAN Referring Unavailable BIDDLECOM, SUZAN Referring Unavailable Corine Gold MD Primary Care Provider Dariusz Estrada Admitting Unavailable Dariusz Estrada Attending Unavailable Lamont Shay Primary Care Unavailable NON STAFF Primary Care Unavailable Ramsey Maloney Admitting Unavailab [place] Attending Unavailab ZAY Tavarez Attending Unavailable ZAY BLAS Attending Unavailable ROOPA, ZAY Attending Unavailable FAWWAD, Attending Unavailable ROOPA, ZAY Attending Unavailable NADERER, LAMONT Attending Unavailable NADERER, LAMONT Attending Unavailable ROOPA, ZAY Attending Unavailable NADERER, LAMONT Attending Unavailable NADERER, LAMONT Attending Unavailable NADERER, LAMONT Attending Unavailable ROOPA, ZAY Attending Unavailable ROOPA, ZAY Attending Unavailable Allergies Allergy Classification Reported Allergen(s) Allergy Type Date of Onset Reaction(s) Facility Anti-Epileptic Agents (1 source) levETIRAcetam Drug Allergy 023 Itching [facility] Work Phone: Cephalosporins (antibiotic) (1 source) Cephalexin Drug Allergy Rash [facility] Dextromethorphan / Pyrilamine (1 source) Dextromethorphan / Pyrilamine Drug Allergy 022 Hives [facility] Work Phone: Dihydroergotamine (1 source) Dihydroergotamine Drug Allergy 023 Intolerance [facility] DOPamine Antagonists (1 source) Metoclopramide Drug Allergy Intolerance [facility] Macrolides (antibiotic) (1 source) Azithromycin Drug Allergy Other: See Comments [facility] vortioxetine (1 source) vortioxetine Drug Allergy Hives [facility] (20 sources) Azithromycin; Translations: [AZITHROMYCIN] Drug Allergy Hives, Other: See Comments [facility] (17 sources) carBAMazepine Drug Allergy Other (See Comments) [facility] (20 sources) Cephalexin; Translations: [CEPHALEXIN] Drug Allergy Hives, Rash [facility] (20 sources) Metoclopramide; Translations: [METOCLOPRAMIDE] Drug Allergy Hives, Intolerance, Unknown, Rash, Other (See Comments) [facility] (17 sources) Propranolol Drug Allergy Hives, Other (See Comments) [facility] (20 sources) Adhesive Tape-Silicones; Translations: [ADHESIVE TAPE-SILICONES] Drug Allergy Rash [facility] (20 sources) Dextromethorphan / Pyrilamine; Translations: [PYRILAMINE-DEXTROME THORPHAN] Drug Allergy 022 [facility] Work Phone: (20 sources) vortioxetine; Translations: [VORTIOXETINE] Drug Allergy 022 [facility] Work Phone: (20 sources) Dihydroergotamine; Translations: [DIHYDROERGOTAMINE] Drug Allergy 023 Intolerance, GI intolerance, GI Disturbance, [facility] (1 source) Azithromycin Drug Allergy [facility] (1 source) bee venom Drug allergy (disorder) [facility] (1 source) Cephalexin Drug Allergy [facility] (1 source) Desonide Drug Allergy [facility] (1 source) Iothalamate Drug Allergy [facility] (2 sources) Propranolol; Translations: [PROPRANOLOL] Drug Allergy 021 [facility] (1 source) [place] [facility] Drug allergy (disorder) [facility] (20 sources) levETIRAcetam; Translations: [LEVETIRACETAM] Drug Allergy 023 Itching, [facility] Work Phone: (2 sources) Valproate; Translations: [DIVALPROEX] Drug Allergy 024 [facility] Work Phone: (20 sources) busPIRone Drug Allergy 022 [facility] Work Phone: (20 sources) Carbamazepine Allergy to substance 021 Unknown [facility] (20 sources) Ciprofloxacin Drug Allergy 023 [facility] (20 sources) Clarithromycin Allergy to substance GI intolerance [facility] (20 sources) Clindamycin Drug Allergy 021 Unknown, [facility] (20 sources) Dextromethorphan Drug Allergy 023 [facility] (20 sources) Dextromethorphan / Pyrilamine Drug Allergy 022 [facility] (20 sources) Honey bee venom Allergy to substance 12-05-2 023 Unknown [facility] (20 sources) Levetiracetam Propensity to adverse reactions Itching [facility] (20 sources) Propranolol Drug Allergy Hives, Other: See Comments [facility] (20 sources) vortioxetine Drug Allergy Hives [facility] (20 sources) Other [facility] (20 sources) Wound Dressing Adhesive Drug Allergy Rash [facility] (20 sources) Prochlorperazine; Translations: [PROCHLORPERAZINE] Drug Allergy Intolerance, Anxiety [facility] (15 sources) Adhesive agent Propensity to adverse reactions to drug Rash [facility] (15 sources) Dexamethasone Drug Allergy [facility] (15 sources) Metoclopramide Drug Allergy Itching, Anxiety [facility] (15 sources) Bee Venom Protein (Honey Bee) Propensity to adverse reactions to drug Anaphylaxis [facility] (1 source) Azithromycin Drug Allergy [facility] (1 source) Cephalexin Drug Allergy [facility] (1 source) levETIRAcetam Drug Allergy [facility] (1 source) Metoclopramide Drug Allergy [facility] (1 source) Prochlorperazine Drug Allergy [facility] Medications Current Medications Medication Drug Class(es) Dates Sig (Normalized) Sig (Original) albuterol 0.83 mg/ml inhalation solution (20 sources) beta2-Adrenergic Agonist Start: 03-20-2024 take 3 mL by inhalation four times daily as needed for wheezing albuterol (PROVENTIL,VENTOLIN ) 2.5 mg /3 mL (0.083 %) nebulizer [...] Start: 06-07-2022 take 2 puff(s) by mo ut every four hours as needed albuterol (VENTOLIN [...] wheezing. 75 mL 1 06/07/2022 03/20/2024 Discontinued amoxicillin 875 mg / clavulanate 125 mg oral tablet (4 sources) Penicillin-class Antibacterial Start: 04-10-2024 End: 04-17-2024 take 1 tablet by mouth every eight hours amoxicillin-pot clavulanate (AUGMENTIN) 875-125 mg per tablet Take 1 tablet by mouth every 8 (eight) hours for 7 days. 21 tablet 04/10/2024 04/17/2024 Active baclofen 10 mg oral tablet (20 [...] oral capsule (16 sources) Non-narcotic Antitussive Start: End: take 1 [...] capsule (2 sources) Lincosamide Antibacterial Start: 04-02-19 End: 04-12-19 take 1 capsule by mouth in the [...] oral tablet (20 sources) Benzodiazepine Start: 03-28-19 End: 04-10-19 diazePAM (VALIUM) tablet 5 mg Start: 11-23-2021 [...] Suspended docusate sodium 50 mg / sennosides, half-way 8.6 mg oral tablet (8 sources) Start: 03-28-2024 take 1 tablet by [...] minutes after.. 20 tablet 01/23/2024 02/09/2024 Discontinued [id number] 0.3 ml EPINEPHrine 1 mg/ml auto-injector (16 sources) alpha-Adrenergic Agonist, beta-Adrenergic Agonist, Catecholamine Start: 06-07-2022 EPINEPHrine (EPIPEN) 0.3 mg/0.3 mL auto-injector 0.3 mL (0.3 mg total) by other route as needed (exposure to allergen). 2 each 1 06/07/2022 Active 84 hr estradiol 0.83142 mg/hr transdermal system (20 sources) Estrogen Start: 04-15-2024 estradioL (VIVELLE-DOT) 0.05 mg/24 hr Indications: Menopausal symptoms Place 1 patch on the skin 2 (two) times a week. 8 patch 04/15/2024 Active Start: 04-11-2024 End: 04-15-2024 estradioL (VIVELLE-DOT) 0.03 75 mg/[address] 1 patch on the skin 2 (two) times a week. 5 patch 2 04/11/2024 04/15/2024 Discontinued (Dose adjustment) Start: 04-11-2024 estradioL (HENOK RADU-DOT) 0.0375 mg/[address] 1 patch on the skin 2 (two) times a week. 5 patch 2 04/11/2024 Start: 04-09-2024 End: 04-10-2024 1 patch, transdermal, 2 time s weekly (Once per day on Monday), First dose on Mon04/09/24 at 0915, Remove previous patch, if present, before applying new. Remove for MRI. Place on trunk of body (preferably abdomen). Rotate application sites allowing a 1-week interval between applications at a particular site. Start: 06-29-2023 End: 02-28-2024 take 1 tablet by mouth once daily in the morning estradiol (Estrace) 1 MG tablet Indications: Vaginal discharge , Pelvic pain in female take 1 tablet by mouth every morning 30 tablet 3 06/29/2023 02/28/2024 Discontinued fnibpedbtzm-tyfytkjzn-iqhlsu er (TRELEGY ELLIPTA) 200-62.5-25 mcg blister with device (12 sources) Start: 03-20-2024 take 1 puff(s) by inhalation in the morning smfrlkmsaek-yeboouekv-ipegqmci (TRELEGY ELLIPTA) 200-62.5-25 mcg blister with device Indications: Moderate asthma with acute exacerbation, unspecified whether persistent Inhale 1 puff in the morning. 60 each 03/20/2024 Start: 03-20-2024 take 1 puff(s) by inhalation in the morning sswbbzumuhy-pybjorajv-rxaxapxx (TRELEGY ELLIPTA) 200-62.5-25 mcg blister with device [...] 10/25/2023 Active ibuprofen 800 mg oral tablet (19 sources) Nonsteroidal Anti-inflammatory Drug Start: 04-08-2024 End: 04-10-2024 take 1 tablet by mouth every six hours as needed for pain 800 mg, oral, Every 6 hours PRN, moderate pain - pain scale 4-6, Starting on 04/08/24 at 1825, Look-alike/sound-a like medication - verify indication for use. Take/Give with food or milk. Start: 02-10-2024 End: 04-15-2024 take 1 tablet by mouth three times daily ibuprofen (MOTRIN) 800 mg tablet Indications: Post-op pain Take 1 tablet (800 mg total) by mouth 3 (three) times a day. 21 tablet 04/15/2024 Active ketoconazole 20 mg/ml medicated shampoo (20 sources) Azole Antifungal Start: 11-26-2021 End: 02-28-2024 ketoconazole (NIZORAL) 2 % shampoo APPLY TO AFFECTED AREA(S) LATHER AND LEAVE IN PLACE FOR 5 MINUTES AND THEN RINSE OFF WITH WATER. DO THIS 2 TIMES A WEEK FOR 4 WEEKS 120 mL 11/26/2021 Active lamoTRIgine 200 mg oral tablet (20 sources) Mood Stabilizer, Anti-epileptic Agent Start: 01-29-2024 End: 04-10-2024 take 1 tablet by mouth in the [...] twice daily. montelukast 10 mg oral tablet (16 sources) Leukotriene Receptor Antagonist Start: 06-07-2022 take 1 tablet by mouth in the morning montelukast (SINGULAIR) 10 mg tablet Take 1 tablet (10 mg total) by mouth in the morning. 30 tablet 06/07/2022 Active naloxone (NARCAN) 4 mg/actuation spray,non-aerosol nasal spray (3 sources) Start: 04-10-2024 naloxone (NARCAN) 4 mg/actuation spray,non-aerosol nasal spray Administer 1 spray (4 mg total) into alternating nostrils as needed for opioid reversal. 1 each 04/10/2024 Active Start: 04-10-2024 naloxone (NARC AN) 4 mg/actuation spray,non-aerosol nasal spray Administer 1 spray (4 mg total) into alternating nostrils as needed for opioid reversal. 1 each 04/10/2024 Nirmatrelvir&Ritonavir 300/1 00 (Paxlovid, 300/100,) 20 x 150 MG & 10 x 100MG tablet therapy pack (3 sources) Start: 12-12-2023 End: 01-09-2024 Nirmatrelvir&Ritonavir 300/1 00 (Paxlovid, 300/100,) 20 x 150 MG & 10 x 100MG tablet therapy pack Indications: COVID-19 Take 1 each by mouth See administration instructions 1 each 12/12/2023 01/09/2024 Discontinued Start: 12-12-2023 Nirmatrelvir&R itonavir 300/100 (Paxlovid, 300/100,) 20 x 150 MG & 10 x 100MG tablet therapy pack Indications: COVID-19 Take 1 each by mouth See administration instructions 1 each 12/12/2023 Active omeprazole 40 mg delayed release oral capsule (20 sources) Proton Pump Inhibitor Start: 03-20-2024 take 1 capsule by mouth in the morning omeprazole (PriLOSEC) 40 mg capsule Indications: Gastroesophageal reflux disease, unspecified whether esophagitis present Take 1 capsule (40 mg total) by mouth in the morning. 30 capsule 11 03/20/2024 Active Start: 01-27-2022 End: 04-08-2024 take 1 capsule by mouth in the morning omeprazole (PriLOSEC) 20 mg capsule Take 1 capsule (20 mg total) by mouth in the morning. 30 capsule 1 01/27/2022 04/08/2024 Discontinued (Therapy completed) ondansetron (ZOFRAN-ODT) disintegrating tablet 4 mg (1 [...] th two times a day as needed. microencapsulated potassium chloride 20 meq extended release oral tablet (2 sources) Start: 03-26-19 End: 03-28-19 take 1 tablet by mouth in the morning potassium chloride (KLOR-CON M 20) 20 MEQ CR tablet Take 1 tablet (20 mEq total) by mouth in the morning for 2 days. 2 tablet 03/26/2024 03/28/2024 Active predniSONE 50 mg oral tablet (15 sources) Start: 01-23-20 End: 01-29-20 take 1 tablet by mouth once daily predniSONE (Deltasone) 50 MG tablet Indications: Mild persistent asthma with (acute) exacerbation (CMS/HCC) Take 1 tablet (50 mg) by mouth Daily for 6 days 6 tablet 01/23/2024 01/29/2024 Active Start: 11-15-2023 take 6 tablets by mo [facility] once daily, then take 4 tablets by [...] as needed. 90 tablet 2 08/31/2022 Active End: 04-08-2024 take 25 mg rectal route every six hours as needed for nausea and vomiting promethazine (Phenergan) 25 MG suppository Insert 25 mg into the rectum every 6 (six) hours if needed for nausea or vomiting Active Comment on above: Take 12.5 mg by mout h every 6 hours as needed. Take 1 tablet by sami th every 6 hours as needed. 72 hr scopolamine 0.0139 mg/hr transdermal system (17 sources) Anticholinergic Start: End: apply 1 dose transdermal route once daily scopolamine (TRANSDERM-SCOP) 1 mg/3 days Indications: Nausea and vomiting, unspecified vomiting type Place 1 patch on the skin every third day for 10 doses. 10 patch 04/15/2024 05/13/2024 Active terconazole 4 mg/ml vaginal cream (1 source) Azole Antifungal Start: End: terconazole (Terazol 7) 0.4 % vaginal cream Indications: Yeast infection Insert 1 applicator into the vagina at bedtime for 7 days 45 g 01/15/2024 01/22/2024 Active 28 actuat tiotropium 0.09682 mg/actuat inhalation spray (20 sources) Anticholinergic Start: End: Spiriva Respimat 1.25 MCG/ACT inhaler inhale 2 puffs by mouth once daily 04/26/2023 02/28/2024 Discontinued traMADol hydrochloride 50 mg oral tablet (8 sources) Opioid Agonist Start: End: take 1 tablet by mouth four times daily as needed for pain traMADol (Ultram) 50 MG tablet Indications: Pain, dental Take 1 tablet (50 mg) by mouth 4 (four) times a day as needed for severe pain for up to 7 days 28 tablet 01/22/2024 01/29/2024 Active ZOLMitriptan 5 mg/actuat nasal spray (20 sources) Serotonin-1b and Serotonin-1d Receptor Agonist Start: End: ZOLMitriptan (ZOMIG) 5 mg nasal solution Administer 1 spray into each nostril as needed for migraine. 01/30/2024 Active Start: 06-24-2022 ZOLMitriptan ( ZOMIG) 5 mg nasal spray Use 1 [place] in the nose as needed at onset of migraine headache. If symptoms persist or return, may repeat dose in other nostril after 2 hours. Maximum of 2 sprays per 24 hours 10 Each 2 06/24/2022 Active Start: 06-24-2022 take 1 spray(s) nasa l route every twenty-four hours as needed ZOLMitriptan (ZOMIG) 5 mg nasal spray Use 1 [place] in the nose as needed. SPRAY IN 1 NOSTRIL AT ONSET OF MIGRAINE HEADACHE. If symptoms persist or return, may repeat dose after 2 hours. Maximum: 5 mg/dose; 10 mg per 24 hours 10 Each 2 06/24/2022 Active Comment on above: Use 1 [place] in the n ose as needed. SPRAY IN 1 NOSTRIL AT ONSET OF MIGRAINE HEADACHE. If symptoms persist or return, may repeat dose after 2 hours. Maximum: 5 mg/dose; 10 mg per 24 hours Use 1 [place] in the n ose as needed at onset of migraine headache. If symptoms persist or return, may repeat dose in other nostril after 2 hours. Maximum of 2 sprays per 24 hours Completed/Discontinued Medications Medication Drug Class(es) Dates Sig (Normalized) Sig (Original) acetaminophen 500 mg oral tablet (11 sources) Start: 04-08-2024 End: 04-10-2024 take 1 tablet by mouth every six hours as needed for pain 1,000 mg, oral, Every 6 hours PRN, mild pain - pain scale 1-3, Starting on Mon04/08/24 at 1825 Start: 03-28-2024 take 2 tablets by mo [facility] every six hours as needed for pain acetaminophen (TYLENOL EXTRA STRENGTH) 500 mg tablet Take 2 tablets (1,000 mg total) by mouth every 6 (six) hours as needed for pain. 30 tablet 2 03/28/2024 Active Start: 10-19-2021 acetaminophen (TYLENOL) tablet 1,000 mg Start: 10-19-2021 End: 10-19-2021 acetaminophen (TYLENOL) tabl et 650 mg acetaminophen 300 mg / codeine phosphate 30 mg oral tablet (3 sources) Opioid Agonist Start: 04-04-2024 End: 04-15-2024 take 1 tablet by mouth every six hours as needed acetaminophen-codeine (TYLENOL #3) 300-30 mg per tablet Take 1 tablet by mouth every 6 (six) hours as needed. 04/04/2024 04/15/2024 Discontinued (Alternate therapy) ARIPiprazole 10 mg oral tablet (8 sources) Atypical Antipsychotic End: 03-25-2024 take 1 tablet by mouth in the morning ARIPiprazole (ABILIFY) 10 mg tablet Take 1 tablet (10 mg total) by mouth in the morning. 03/25/2024 Discontinued (Dose adjustment) cariprazine 4.5 mg oral capsule (4 sources) Atypical Antipsychotic cariprazine (VRAYLAR ) 4.5 mg capsule Vraylar 4.5 mg capsule 0 Active Comment on above: Vraylar 4.5 mg capsu le cefTRIAXone (ROCEPHIN) 1,000 mg in sodium chloride 0.9 % 50 mL IVPB-MBP (1 source) Start: 04-08-2024 End: 04-08-2024 1,000 mg, intravenous, at 100 mL/hr, Administer over 30 Minutes, Once, On Mon04/08/24 at 1450, For 1 dose, Look-alike/sound-alike medication - verify indication for use. Do not co-administer with calcium-containing solutions such as Lactated Ringers., Indication: Intra-abdominal cyclobenzaprine hydrochloride 10 mg oral tablet (2 sources) Muscle Relaxant End: 10-20-2021 take 1 tablet by mouth three times daily cyclobenzaprine (FLEXERIL) 10 MG tablet Take 10 mg by mouth 3 times daily 0 10/20/2021 Discontinued (Stop Taking at Discharge) diphenhydrAMINE (9 sources) Histamine-1 Receptor Antagonist Start: 04-09-2024 End: 04-09-2024 12.5 mg, intravenous, Once, On Mon04/09/24 at 1100, For 1 dose, Look-alike/sound-alike medication - verify indication for use. Start: 04-08-2024 End: 04-08-2024 25 mg, intravenous, Once, On Mon04/08/24 at 1450, For 1 dose, Look-alike/sound-alike medication - verify indication for use. Start: 01-22-2024 End: 01-22-2024 25 mg, INTRAVENOUS, NEEDE D, 2 doses, Starting on Mon01/22/24 at 1328, Until Mon01/22/24 at 1429, Sedation/Dystonia/Akathisia/Anxiety 3rd line Start: 01-19-2024 End: 01-19-2024 25 [...] 1245, Until Discontinued Indication of Use: Prophylaxis-DVT/PE EPINEPHrine 0.01 mg/ml / lidocaine hydrochloride 10 mg/ml injectable solution (1 source) Antiarrhythmic, alpha-Adrenergi c Agonist, beta-Adrenergic Agonist, Catecholamine, Amide Local Anesthetic Start: 04-08-2024 End: 04-08-2024 30 mL, intradermal, Once, On Mon04/08/24 at 1805, For 1 dose, Look-alike/sound-alike medication - verify indication for use. eptinezumab-jjmr 100 mg in NaCl 0.9% 100 [...] extended release oral tablet (8 sources) Start: End: 025 take 1 tablet by mouth once guaiFENesin (MUCINEX) 600 mg tablet extended release 12hr Take 1 tablet (600 mg total) by mouth every 12 (twelve) hours. 60 tablet 1 04/21/2022 03/25/2024 Discontinued (Therapy completed) 0.5 ml HYDROmorphone hydrochloride 1 mg/ml prefilled syringe (4 sources) Opioid Agonist Start: End: take 1 mg intravenously every four hours as needed for pain 1 mg, intravenous, Every 4 hours PRN, severe pain - pain scale 7-10, Starting on Mon04/08/24 at 1941, If IV push, administer over over 2 to 3 minutes. Look-alike/sound-a like medication - verify indication for use. Start: 04-08-2024 End: 04-08-2024 take 0.5 mg intravenously once 0.5 mg, intravenous, Once, On Mon04/08/24 at 2015, For 1 dose, If IV push, administer over over 2 to 3 minutes. Look-alike/sound-alike medication - verify indication for use. Start: 04-08-2024 End: 04-08-2024 1 mg, intravenous, Once, On Mon04/08/24 at 1625, For 1 dose, If IV push, administer over over 2 to 3 minutes. Look-alike/sound-alike medication - verify indication for use. iohexoL (OMNIPAQUE) 300 mg iodine/mL 100 mL (1 source) Start: 04-08-2024 End: 04-08-2024 100 mL, intravenous, Once in imaging, contrast, Starting on Mon04/08/24 at 1521, For 1 dose, VESICANT (RED) iohexoL (OMNIPAQUE) 300 mg iodine/mL 30 mL (1 source) Start: 04-08-2024 End: 04-10-2024 take 30 mL by mouth once 30 mL, oral, Once in imaging, contrast, Starting on Mon04/08/24 at 1335, For 1 dose, VESICANT (RED) 1 ml ketorolac tromethamine 30 mg/ml injection (20 sources) Nonsteroidal Anti-inflammatory Drug, Cyclooxygenase Inhibitor Start: 04-09-2024 End: 04-09-2024 15 mg, intramuscular, Once, On Mon04/09/24 at 1100, For 1 dose, Look-alike/sound-a like medication - verify indication for use. Duration of therapy is not to exceed 5 days. Maximum recommended dose + 120mg/24 hours. Start: 01-22-2024 End: 01-22-2024 30 mg, INTRAVENOUS, [...] hours if needed 05/14/2023 02/28/2024 Discontinued Start: 05-08-2022 End: 04-10-2024 take 1 tablet by mouth every six hours as needed keTORolac (TORADOL) 10 mg tablet Take 1 tablet by mouth every 6 hours as needed (severe migraine). 20 tablet 5 11/10/2023 Active Start: 12-24-2020 End: 12-24-2020 ketorolac (TORADOL) injectio n 15 mg Comment on above: Take 1 tablet by sami th every 6 hours as needed (severe migraine). Take 10 mg by mouth. 200 actuat levalbuterol 0.045 mg/actuat metered dose inhaler (8 sources) beta2-Adrenergic Agonist Start: 01-28-20 End: 03-25-19 25 take 1-2 puff(s) by inhalation every four [...] 300 mg oral tablet (20 sources) Start: 04-08-19 End: 04-10-19 600 mg, oral, Nightly, First dose on Mon04/08/24 at 2200, Food-Drug Interaction Education Required Look-alike/sound-ali ke medication - verify indication for use Maintain normal daily intakes of fluids and salt (sodium) Enteral Feeding: Mix solution with 10-30 mL water prior to administering in feeding tube Start: 06-13-2022 lithium carbon ate 300 mg tablet 06/13/2022 Active Start: 01-17-2022 take 2 tablets by mo uth once daily lithium carbonate 300 mg tablet Take 2 tablets (600 mg total) by mouth nightly. 01/17/2022 Active Start: 01-17-2022 End: 02-28-2024 lithium carbonate 300 mg tab let 2 tablets (600 mg total). 01/17/2022 Active End: 01-09-2024 lithium ER (Eskalith) 450 MG 12 hr tablet [place] 01/09/2024 Discontinued 1 ml LORazepam 2 mg/ml injection (3 sources) Benzodiazepine Start: 04-08-2024 End: 04-08-2024 take 1 mg intravenously once 1 mg, intravenous, Once, On Mon04/08/24 at 2015, For 1 dose, Look-alike/sound-alike medication - verify indication for use;IV use requires increased monitoring of HR,BP,Respirations and Pulse Oximetry;For IV-dilute with equal volume PF sod chloride, Indication: Sedation End: 10-20-2021 take 1 tablet by mouth twice daily LORazepam (ATIVAN) 2 MG tablet Take 2 mg by mouth 2 times daily. 0 10/20/2021 Discontinued (Stop Taking at Discharge) 100 ml magnesium sulfate 10 mg/ml injection (3 sources) Start: 01-22-2024 End: 01-22-2024 1 g, INTRAVENOUS, at 100-200 mL/hr, Administer [...] ri 02/09/24 at 1130, For 1 dose 100 ml metroNIDAZOLE 5 mg/ml injection (1 source) Nitroimidazole Antimicrobial Start: 04-08-2024 End: 04-08-2024 500 mg, intravenous, at 100 mL/hr, Administer over 60 Minutes, Once, On Mon04/08/24 at 1450, For 1 dose, Look-alike/sound-alike medication - verify indication for use., Indication: Intra-abdominal 2 ml midazolam 1 mg/ml injection (1 source) Benzodiazepine Start: 10-19-2021 End: 10-19-2021 midazolam PF (VERSED) injection 1 mg 1 ml morphine sulfate 4 mg/ml injection (1 source) Opioid Agonist Start: 04-08-2024 End: 04-08-2024 4 mg, intravenous, Once, On Mon04/08/24 at 1335, For 1 dose, Look-alike/sound-alike medication - verify indication for use. naratriptan 2.5 mg oral tablet (4 sources) [...] may repeat in 4 hours if needed nystatin 100 unt/mg topical powder (15 sources) Polyene Antifungal Start: 01-24-2024 End: 04-08-2024 nystatin (MYCOSTATIN) powder APPLY TO THE AFFECTED AREA(S) topically TWICE DAILY 01/24/2024 04/08/2024 Discontinued (Therapy completed) Start: 01-24-2024 End: 04-23-2024 nystatin (Mycostatin) 597902 UNIT/GM powder Indications: Rash , Yeast dermatitis Apply topically 2 (two) times a day 60 g 01/24/2024 02/28/2024 Discontinued 2 ml ondansetron 2 mg/ml injection (20 sources) Serotonin-3 Receptor Antagonist Start: 04-08-2024 End: 04-08-2024 4 mg, intravenous, Once, On Mon04/08/24 at 1335, For 1 dose, Administer over 2-5 minutes. Start: 02-10-2024 End: 04-10-2024 take 1 tablet by mouth every eight [...] 12-24-2020 ondansetron (ZOFRAN) injecti on 4 mg oxyCODONE hydrochloride 5 mg oral tablet (13 sources) Opioid Agonist Start: 03-28-2024 End: 04-22-2024 take 1 tablet by mouth every four hours as needed for pain oxyCODONE (ROXICODONE) 5 mg immediate release tablet Indications: Postoperative surgical complication involving genitourinary system associated with genitourinary procedure, unspecified complication Take 1 tablet (5 mg total) by mouth every 4 (four) hours as needed for pain for up to 5 days. Max Daily Amount: 30 mg 30 tablet 04/10/2024 04/15/2024 Discontinued (Reorder) phentermine hydrochloride 37.5 mg oral tablet (20 sources) Sympathomimetic Amine Anorectic Start: 03-21-2023 End: 04-08-2024 take 1 tablet by mouth once daily before breakfast phentermine (ADIPEX-P) 37.5 mg tablet Take 1 tablet (37.5 mg total) by mouth every morning before breakfast. 01/10/2024 04/08/2024 Discontinued (Therapy completed) Comment on above: take 1 tablet by sami th every morning before meals piperacillin-tazobact am (ZOSYN) 4.5 g in sodium chloride 0.9 % 50 mL IVPB-MBP (1 source) Start: 04-08-2024 End: 04-08-2024 4.5 g, intravenous, at 100 mL/hr, Administer over 0.5 Hours, Once, On Mon04/08/24 at 1615, For 1 dose, ADD-VANTAGE/MBP- Discard 24 hours after activating; dissolve drug prior to administration polyethylene glycol 3350 [id number] mg powder for oral solution (1 source) [...] 1000 ml sodium chloride 9 mg/ml injection (11 sources) Start: 04-08-2024 End: 04-10-2024 10 mL, intravenous, As needed, line care, Starting on Mon04/08/24 at 1521 Start: 04-08-2024 End: 04-08-2024 80 mL, intravenous, Once in imaging, pre/post contrast, Starting on Mon04/08/24 at 1521, For 1 dose Start: 04-08-2024 End: 04-08-2024 2,000 mL, intravenous, at 3, 871 mL/hr, Administer over 31 Minutes, Once, On Mon04/08/24 at 1335, For 1 dose Start: 01-19-2024 End: 01-19-2024 500 mL, INTRAVENOUS, [...] End: 12-24-2020 0.9 % sodium chloride bolus sulfamethoxazole 800 mg / trimethoprim 160 mg oral tablet (5 sources) Dihydrofolate Reductase Inhibitor Antibacterial, Sulfonamide Antimicrobial Start: 04-07-2024 End: 04-10-2024 take 1 tablet by mouth once in the morning sulfamethoxazole-trimethoprim (BACTRIM DS) 800-160 mg per tablet Take 1 tablet by mouth in the morning and 1 tablet before bedtime. 04/07/2024 04/10/2024 Discontinued (Stop Taking at Discharge) Start: 11-15-2023 End: 11-29-2023 take 1 tablet by mouth once in [...] 14 days. 28 tablet 10/10/2023 10/24/2023 Active SUMAtriptan 100 mg oral tablet (3 sources) Serotonin-1b and Serotonin-1d Receptor Agonist End: 12-03-2021 SUMAtriptan (IMITREX) 100 mg tablet Take 100 mg by mouth. 0 12/03/2021 Discontinued (Lack of Efficacy) Comment on above: Take 100 mg by mouth . traZODone hydrochloride 100 mg oral tablet (20 sources) Serotonin Reuptake Inhibitor Start: 04-09-2024 End: 04-10-2024 take 300 mg by mouth once daily 300 mg, oral, Nightly, First dose on Mon04/09/24 at 0100, Look-alike/sound-a like medication - verify indication for use. Start: 03-14-2024 take 1 tablet by sami once daily traZODone (DESYREL) 300 MG tablet [...] Take by mouth at bedtime. 01/09/2024 Discontinued vancomycin (VANCOCIN) IVPB 1250 mg/250 mL in 0.9% sodium chloride (premix) (1 source) Start: 04-09-2024 End: 04-10-2024 take 1250 mg intravenously every eight hours 1,250 mg, intravenous, at 167 mL/hr, Administer over 90 Minutes, Every 8 hours, First dose on Mon04/09/24 at 1030, VESICANT (YELLOW), Indication: Other, Specify: peritonitis vancomycin (VANCOCIN) IVPB 2000 mg/500 mL in 0.9% sodium chloride (premix) (1 source) Start: 04-08-2024 End: 04-08-2024 2,000 mg (rounded from 2,140 mg = 20 mg/kg 107 kg Order-specific weight), intravenous, at 250 mL/hr, Administer over 120 Minutes, Once, On Mon04/08/24 at 1615, For 1 dose, VESICANT (YELLOW), Indication: Uncomplicated skin and soft tissue infection 24 hr venlafaxine 75 mg extended release [...] [Mild persistent asthma] Onset: 12-29-2021 01-24-2023 Chronic Complications of surgical procedures or medical care (5 sources) Postoperative complication; Translations: [Other postprocedural complications and disorders of genitourinary system] Onset: 04-08-2024 04-08-2024 Episodic E Codes: Fall (1 source) Unspecified fall, initial encounter; Translations: [UNSPECIFIED FALL INITIAL ENCOUNTER] Onset: 05-25-2022 Episodic Endometriosis (1 source) Endometriosis, unspecified; Translations: [ENDOMETRIOSIS UNSPECIFIED] Onset: 08-18-2021 Chronic Epilepsy; convulsions (19 sources) Seizure disorder; Translations: [Epilepsy, unspecified, not [...] [Female pelvic peritoneal adhesions (postinfective)] 03-06-2024 Episodic Menopausal disorders (1 source) Menopausal symptom; Translations: [Menopausal and female climacteric states] 04-15-2024 Chronic Menstrual disorders (1 source) Dysmenorrhea, unspecified; [...] 08-14-2021 Episodic Other aftercare (1 source) Other student counsellor (current) drug therapy; Translations: [OTH BUREAU CHIEF CURRENT DRUG THERAPY] Onset: 06-22-2022 Episodic Other [...] Onset: 01-19-2022 Chronic Other lower respiratory disease (20 sources) Dyspnea on exertion; Translations: [Shortness of breath] Onset: 01-23-2024 01-23-2024 Episodic Other lower respiratory disease (1 source) Nodule of lung; Translations: [Solitary pulmonary nodule] 03-20-2024 Episodic Other nervous system disorders (1 source) Tremor; Translations: [Tremor, unspecified] Episodic Other nervous system disorders (2 sources) Postoperative pain ; Translations: [Other acute postprocedural [...] 59.9 in adult] Onset: 03-21-2023 01-01-2024 Chronic Other skin disorders (2 sources) Excessive sweating; Translations: [Generalized hyperhidrosis] 04-16-2024 Episodic Ovarian cyst (11 sources) Complex ovarian cyst; Translations: [Other ovarian cyst, unspecified side] 02-28-2024 Episodic Residual codes; unclassified (1 source) Acquired absence of other specified parts of digestive tract; Translations: [ACQ ABSENCE OTH PART DIGESTV TRACT] Onset: 06-22-2022 Episodic Residual codes; unclassified (20 sources) Edema, generalized; Translations: [Generalized edema] Onset: 01-23-2024 01-23-2024 Episodic Residual codes; unclassified (1 source) Preoperative state 03-20-2024 Episodic Residual codes; unclassified (8 sources) History of bilateral salpingo-oophorectom y; 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, bilateral] Onset: 03-28-2024 04-01-2024 Episodic Skin and subcutaneous tissue infections (3 sources) Cellulitis of abdominal wall ; Translations: [Cellulitis of abdominal wall] Onset: 04-08-2024 04-08-2024 Episodic Unclassified (3 sources) LOW BACK PAIN, [...] 10-10-2023 Episodic Coma; stupor; and brain damage (16 sources) Somnolence; Translations: [Loss of consciousness] Onset: 08-06-2021 08-06-2021 Episodic Contraceptive and procreative management (1 source) Tubal ligation status; Translations: [TUBAL LIGATION STATUS] Onset: 10-08-2021 Episodic Disorders of teeth and jaw (20 sources) Toothache; Translations: [Other specified disorders of teeth and supporting structures] Onset: 01-09-2024 01-09-2024 Episodic Epilepsy; convulsions (20 sources) Neurological finding; Translations: [Unspecified convulsions] Onset: 10-19-2021 Episodic Malaise and fatigue (20 sources) Fatigue; Translations: [Other fatigue] Onset: 01-01-2024 01-01-2024 Episodic Mood disorders (16 sources) Mood disorders; Translations: [DEPRESSION UNSPECIFIED] Onset: 03-03-2022 Resolved: 04-08-2024 03-03-2022 Other aftercare (20 sources) Long-term current use of drug therapy; Translations: [Other residential (current) drug therapy] Onset: 01-01-2024 01-01-2024 Episodic Other gastrointestinal disorders (1 source) Diarrhea, unspecified; Translations: [DIARRHEA UNSPECIFIED] Onset: 10-08-2021 Episodic Other liver diseases (1 source) Hepatomegaly, not elsewhere classified; Translations: [HEPATOMEGALY NEC] Onset: 01-19-2022 Episodic Other lower respiratory disease (16 sources) Cough; Translations: [Acute cough] Onset: 01-27-2022 01-27-2022 Episodic Other nervous system disorders (5 sources) Other acute postprocedural pain; Translations: [OTHER ACUTE POSTPROCEDURAL PAIN] Onset: 10-05-2021 Episodic Other screening for suspected conditions (not mental disorders or infectious disease) (15 sources) Suspected disorder; Translations: [Encounter for suspected [...] Spondylosis; intervertebral disc disorders; other back problems (17 sources) Cervicalgia; Translations: [Neck pain] Onset: 08-06-2021 12-09-2022 Episodic Unclassified (1 source) LOW BACK PAIN, UNSPECIFIED; Translations: [LOW BACK PAIN, UNSPECIFIED] Onset: 01-14-2022 Unclassified (1 source) Patient encounter status 03-19-2024 Urinary tract infections (1 source) Urinary tract infection, site not specified; Translations: [UTI SITE NOT SPECIFIED] Onset: 08-18-2021 Episodic Results Test Name Value Interpretation Reference Range Facility IGP,APTIMA HPV,AGE GDLNon AGE GDLN ACOG TESTING Note . [facility] Comment on above: TESTS RESULT FLAG [facility] REF RANGE LAB Clinician Provided Cytology Information Source.............Vagina No. of containers..01 ThinPrep Vial Age Algo ACOG Becca... FLAG LEGEND: L-Low Normal,H-High Normal,LL-Alert Low,HH-Alert High <-Panic Low,>-Panic High,A-Abnormal,AA-Critical Abnormal Performed at: 01 =G [facility] [id number] Pearl Franco MD, IGP, RFX APTIMA HPV ASCU Note . [facility] Comment on above: TESTS RESULT FLAG [facility] REF RANGE LAB DIAGNOSIS: 02 NEGATIVE FOR INTRAEPITHELIAL LESION OR MALIGNANCY. Specimen adequacy: 02 Satisfactory for evaluation. No endocervical component is identified. Performed by: Daksha Nichole Casing Mixer . 02 Note: Note 02 The Pap smear is a screening test designed to aid in the detection of premalignant and malignant conditions of the uterine cervix. It is not a diagnostic procedure and should not be used as the sole means of detecting cervical cancer. Both false-positive and false-negative reports do occur. Test Methodology: Note 02 This liquid based ThinPrep(R) pap test was screened with the use of an image guided system. . 02 The HPV DNA reflex criteria were not met with this specimen result therefore, no HPV testing was performed. FLAG LEGEND: L-Low Normal,H-High Normal,LL-Alert Low,HH-Alert High <-Panic Low,>-Panic High,A-Abnormal,AA-Critical Abnormal Performed at: [address] [facility] [address] [id number] Pearl Franco MD, Performed at: =G - [facility] [address] [id number] Motor Vehicle Examiner: Pearl Franco MD, Phone: [phone] Performed at: - [facility] [id number] Motor Vehicle Examiner: Pearl Franco MD, Phone: [phone] [facility] CBC auto differentialon 03-23 Band form neutrophils/100 WBC (Bld) 3 % [facility] Eosinophils (Bld) [#/Vol] 0.3 10*3/uL [facility] Eosinophils/100 WBC (Bld) 3 % [facility] Erythrocyte distribution width (RBC) [Ratio] 13.7 % 11.5 - 15.0 % [facility] Hematocrit (Bld) [Volume fraction] 32.8 % Low 35 - 47 % [facility] Hemoglobin (Bld) [Mass/Vol] 11.1 g/dL Low 11.7 - 15.5 g/dL [facility] Interpretation and review of laboratory results Abnormal [facility] Lymphocytes (Bld) [#/Vol] 1.2 10*3/uL [facility] Lymphocytes/100 WBC (Bld) 12 % [facility] MCH (RBC) [Entitic mass] 29 pg 27 - 34 pg [facility] MCHC (RBC) [Mass/Vol] 33.8 g/dL 32 - 36 g/dL [facility] MCV (RBC) [Entitic vol] 86 fL 80 - 100 fL [facility] Monocytes (Bld) [#/Vol] 0.6 10*3/uL [facility] Monocytes/100 WBC (Bld) 6 % [facility] Neutrophils (Bld) [#/Vol] 7.6 10*3/uL High [facility] Platelet mean volume (Bld) [Entitic vol] 7.7 fL 7 - 12 fL [facility] Platelets (Bld) [#/Vol] 225 10*3/uL [facility] Polychromasia LM Ql (Bld) 1+ Abnormal NONE^NONE [facility] RBC (Bld) [#/Vol] 3.82 10*6/uL [facility] Segmented neutrophils/100 WBC (Bld) 76 % [facility] WBC corrected for nucl RBC Auto (Bld) [#/Vol] 9.7 [facility] Comprehensive metabolic pane srikanth 04-10-2024 Albumin [Mass/Vol] 3.3 g/dL 3.2 - 5.3 g/dL [facility] ALP [Catalytic activity/Vol] 80 U/L 39 - 130 U/L [facility] ALT No additional P-5'-P [Catalytic activity/Vol] 39 U/L High 0 - 31 U/L [facility] Anion gap [Moles/Vol] 7 mmol/L 5 - 15 mmol/L [facility] AST [Catalytic activity/Vol] 16 U/L 0 - 41 U/L [facility] Bilirubin [Mass/Vol] 0.3 mg/dL 0.3 - 1 .2 mg/dL [facility] Calcium [Mass/Vol] 9.2 mg/dL 8.5 - 10. 5 mg/dL [facility] Chloride [Moles/Vol] 107 mmol/L 98 - 10 9 mmol/L [facility] CO2 [Moles/Vol] 27 mmol/L 22 - 32 mmol/L [facility] Creatinine [Mass/Vol] 0.55 mg/dL 0.40 - 1.00 mg/dL [facility] Comment on above: METHOD TRACEABLE TO [facility] STANDARD eGFR (CKD-EPI)non-race dependent - PINF [facility] Comment on above: Reported eGFR is based on the CKD-EPI 2020 equation that does not use a race coefficient. Glucose [Mass/Vol] 102 mg/dL High 65 - 99 mg/dL [facility] Interpretation and review of laboratory results Abnormal [facility] Potassium [Moles/Vol] 4.1 mmol/L 3.5 - 5.0 mmol/L [facility] Protein [Mass/Vol] 6.4 g/dL 6.0 - 8.0 g/dL [facility] Sodium [Moles/Vol] 141 mmol/L 134 - 146 mmol/L [facility] Urea nitrogen [Mass/Vol] 9 mg/dL 5 - 23 mg/dL [facility] Bacteria identified Cx Nom ( U)on 04-09-2024 Service comment (Unsp spec) [Interp] URINE RECEIVED WITHOUT PRESERVATIVE [facility] Service comment (Unsp spec) [Interp] 10-50,000 ORGANISMS/mL NORMAL UROGENITAL JANIYA [facility] Basic Metabolic Panelon 03-23 Anion gap [Moles/Vol] 12 mmol/L 5 - 15 mmol/L [facility] Calcium [Mass/Vol] 8.9 mg/dL 8.5 - 10. 5 mg/dL [facility] Chloride [Moles/Vol] 103 mmol/L 98 - 10 9 mmol/L [facility] CO2 [Moles/Vol] 24 mmol/L 22 - 32 mmol/L [facility] Creatinine [Mass/Vol] 0.61 mg/dL 0.40 - 1.00 mg/dL [facility] Comment on above: METHOD TRACEABLE TO [facility] STANDARD eGFR (CKD-EPI)non-race dependent - PINF [facility] Comment on above: Reported eGFR is based on the CKD-EPI 2020 equation that does not use a race coefficient. Glucose [Mass/Vol] 106 mg/dL High 65 - 99 mg/dL [facility] Interpretation and review of laboratory results Abnormal [facility] Potassium [Moles/Vol] 4 mmol/L 3.5 - 5.0 mmol/L [facility] Sodium [Moles/Vol] 139 mmol/L 134 - 146 mmol/L [facility] Urea nitrogen [Mass/Vol] 9 mg/dL 5 - 23 mg/dL [facility] CBC auto differentialon 03-23 Band form neutrophils/100 WBC (Bld) 1 % [facility] Eosinophils (Bld) [#/Vol] 0.8 10*3/uL High [facility] Eosinophils/100 WBC (Bld) 6 % [facility] Erythrocyte distribution width (RBC) [Ratio] 13.5 % 11.5 - 15.0 % [facility] Hematocrit (Bld) [Volume fraction] 32.9 % Low 35 - 47 % [facility] Hemoglobin (Bld) [Mass/Vol] 11.2 g/dL Low 11.7 - 15.5 g/dL [facility] Interpretation and review of laboratory results Abnormal [facility] Lymphocytes (Bld) [#/Vol] 1.5 10*3/uL [facility] Lymphocytes/100 WBC (Bld) 11 % [facility] MCH (RBC) [Entitic mass] 28.8 pg 27 - 34 pg [facility] MCHC (RBC) [Mass/Vol] 34 g/dL 32 - 36 g/dL [facility] MCV (RBC) [Entitic vol] 85 fL 80 - 100 fL [facility] Monocytes (Bld) [#/Vol] 0.5 10*3/uL [facility] Monocytes/100 WBC (Bld) 4 % [facility] Neutrophils (Bld) [#/Vol] 10.6 10*3/uL High [facility] Platelet mean volume (Bld) [Entitic vol] 7.5 fL 7 - 12 fL [facility] Platelets (Bld) [#/Vol] 232 10*3/uL [facility] Polychromasia LM Ql (Bld) 1+ Abnormal NONE^NONE [facility] RBC (Bld) [#/Vol] 3.89 10*6/uL [facility] Segmented neutrophils/100 WBC (Bld) 78 % [facility] WBC corrected for nucl RBC Auto (Bld) [#/Vol] 13.4 High [facility] MRSA DNA SAURABH+probe Ql (Unsp spec)on 04-09-2024 [facility] Mrsa Pcr nasal swabon 2024 MRSA DNA SAURABH+probe Ql (Unsp spec) Negative Negative^Neg ative [facility] APTTon 04-08-2024 aPTT Coag (PPP) [Time] 35 s [facility] Basic Metabolic Panelon 03-23 Anion gap [Moles/Vol] 10 mmol/L 5 - 15 mmol/L [facility] Calcium [Mass/Vol] 9.4 mg/dL 8.5 - 10. 5 mg/dL [facility] Chloride [Moles/Vol] 101 mmol/L 98 - 10 9 mmol/L [facility] CO2 [Moles/Vol] 26 mmol/L 22 - 32 mmol/L [facility] Creatinine [Mass/Vol] 0.61 mg/dL 0.40 - 1.00 mg/dL [facility] Comment on above: METHOD TRACEABLE TO [facility] STANDARD eGFR (CKD-EPI)non-race dependent - PINF [facility] Comment on above: Reported eGFR is based on the CKD-EPI 2020 equation that does not use a race coefficient. Glucose [Mass/Vol] 94 mg/dL 65 - 99 mg/dL [facility] Potassium [Moles/Vol] 4 mmol/L 3.5 - 5.0 mmol/L [facility] [facility] Sodium [Moles/Vol] 137 mmol/L 134 - 146 mmol/L [facility] Urea nitrogen [Mass/Vol] 10 mg/dL 5 - 23 mg/dL [facility] C-reactive proteinon 025 CRP [Mass/Vol] 15.4 mg/dL High 0.000 - 0.744 mg/dL [facility] CBC auto differentialon 03-23 Basophils (Bld) [#/Vol] 0.1 10*3/uL [facility] Basophils/100 WBC (Bld) 0.5 % [facility] Eosinophils (Bld) [#/Vol] 0.2 10*3/uL [facility] Eosinophils/100 WBC (Bld) 1.1 % [facility] Erythrocyte distribution width (RBC) [Ratio] 13.4 % 11.5 - 15.0 % [facility] Hematocrit (Bld) [Volume fraction] 37.6 % 35 - 47 % [facility] Hemoglobin (Bld) [Mass/Vol] 12.8 g/dL 11.7 - 15.5 g/dL [facility] Interpretation and review of laboratory results Abnormal [facility] Lymphocytes (Bld) [#/Vol] 1.3 10*3/uL [facility] Lymphocytes/100 WBC (Bld) 6.7 % [facility] MCH (RBC) [Entitic mass] 28.7 pg 27 - 34 pg [facility] MCHC (RBC) [Mass/Vol] 34.1 g/dL 32 - 36 g/dL [facility] MCV (RBC) [Entitic vol] 84 fL 80 - 100 fL [facility] Monocytes (Bld) [#/Vol] 0.7 10*3/uL [facility] Monocytes/100 WBC (Bld) 3.5 % [facility] Neutrophils (Bld) [#/Vol] 17.2 10*3/uL High [facility] Neutrophils/100 WBC (Bld) 88.2 % [facility] Platelet mean volume (Bld) [Entitic vol] 8.5 fL 7 - 12 fL [facility] Platelets (Bld) [#/Vol] 290 10*3/uL [facility] RBC (Bld) [#/Vol] 4.46 10*6/uL [facility] WBC corrected for nucl RBC Auto (Bld) [#/Vol] 19.6 High [facility] CRP [Mass/Vol]on 04-08-2024 Interpretation and review of laboratory results Abnormal [employer] CT Abdomen and Pelvis W cont samantha Stewart 04-08-2024 CT ABDOMEN AND PELVIS W CONT HISTORY: Abdominal pain, oophorectomy 03/28/2024 and lysis of adhesions COMPARISON: 02/10/2024 and earlier TECHNIQUE: CT images of abdomen and pelvis obtained following administration of contrast. Automated exposure control was utilized. All CT scans at this facility use dose modulation, iterative reconstruction, and/or weight based dosing when appropriate to reduce radiation dose to as low as reasonably achievable. FINDINGS: This examination is markedly compromised by body habitus ABDOMINAL/PELVIC WALL: Soft tissue attenuation in the epigastric and umbilical area (series 602 image 101). No distinct fluid collection. LOWER THORAX: Bilateral lower airspace disease with left worse than right. ESOPHAGUS/STOMACH: The esophagus is nondilated. LIVER: Normal in size and configuration. No suspicious mass. Focal fatty infiltration near the falciform which is unchanged compared to 12/20/2021. BILE DUCTS: No intrahepatic or extrahepatic bile duct dilation. GALLBLADDER: The gallbladder surgically absent. PANCREAS: No abnormal attenuation. No main pancreatic duct dilation. SPLEEN: No splenomegaly. ADRENAL GLANDS: No nodules. KIDNEYS/URETERS: No hydroureteronephros is. The kidneys enhance symmetrically. No suspicious renal mass. BLADDER: Underdistended. REPRODUCTIVE ORGANS: Status post partial hysterectomy and bilateral salpingo-oophorecto my. BOWEL: No disproportionate dilation of the small or large bowel. The appendix is surgically absent. Colonic diverticulosis. PERITONEUM/RETROPER ITONEUM: Focal inflammation along the inferior course of the ureters within the pelvis. LYMPH NODES: No abdominal or pelvic lymphadenopathy. VESSELS: No abdominal aortic aneurysm. BONES: No suspicious osseous lesions. IMPRESSION: * Soft tissue attenuation of the anterior abdominal wall without distinct fluid collection. This may represent developing cellulitis or seroma status postop. Cannot exclude abscess formation within this process, and cannot exclude necrotizing fasciitis in this setting and findings best assessed in combination with other clinical data. * Bilateral lower lung airspace disease with differential diagnosis including atelectasis, or pneumonia. Findings best assessed in combination with other clinical data.. * * Indeterminate focal fatty stranding within the pelvis which may represent some peritoneal fluid axial image 89 series 302 lateral to the rectum on both sides. This may represent some postoperative fluid but I cannot exclude some early abscess formation and certainly cannot exclude bowel setting. Close clinical and follow-up CT abdomen pelvis using oral contrast might be considered if indicated clinically. THIS REPORT CONTAINS A SIGNIFICANT RESULT AND/OR RECOMMENDATION, WHICH REQUIRES THE ATTENTION OF THE LICENSED CAREGIVER RESPONSIBLE FOR THIS PATIENT. THEREFORE, I SPECIFICALLY DESIGNATED THIS REPORT TO BE TELEPHONED BY THE RADIOLOGY DEPARTMENT. * Approved by Kevin Lezama DO on 04/08/2024 3:35 PM IKyle MD have personally reviewed the image(s) and agree with and/or edited the report 7 Finalized by Kyle Solorio MD on 04/08/2024 4:09 PM SECTRAPACS Kyle Solorio MD - 04/08/2024 CT ABDOMEN AND PELVIS W CONT HISTORY: Abdominal pain, oophorectomy 03/28/2024 and lysis of adhesions COMPARISON: 02/10/2024 and earlier TECHNIQUE: CT images of abdomen and pelvis obtained following administration of contrast. Automated exposure control was utilized. All CT scans at this facility use dose modulation, iterative reconstruction, and/or weight based dosing when appropriate to reduce radiation dose to as low as reasonably achievable. FINDINGS: This examination is markedly compromised by body habitus ABDOMINAL/PELVIC WALL: Soft tissue attenuation in the epigastric and umbilical area (series 602 image 101). No distinct fluid collection. LOWER THORAX: Bilateral lower airspace disease with left worse than right. ESOPHAGUS/STOMACH: The esophagus is nondilated. LIVER: Normal in size and configuration. No suspicious mass. Focal fatty infiltration near the falciform which is unchanged compared to 12/20/2021. BILE DUCTS: No intrahepatic or extrahepatic bile duct dilation. GALLBLADDER: The gallbladder surgically absent. PANCREAS: No abnormal attenuation. No main pancreatic duct dilation. SPLEEN: No splenomegaly. ADRENAL GLANDS: No nodules. KIDNEYS/URETERS: No hydroureteronephros is. The kidneys enhance symmetrically. No suspicious renal mass. BLADDER: Underdistended. REPRODUCTIVE ORGANS: Status post partial hysterectomy and bilateral salpingo-oophorecto my. BOWEL: No disproportionate dilation of the small or large bowel. The appendix is surgically absent. Colonic diverticulosis. PERITONEUM/RETROPER ITONEUM: Focal inflammation along the inferior course of the ureters within the pelvis. LYMPH NODES: No abdominal or pelvic lymphadenopathy. VESSELS: No abdominal aortic aneurysm. BONES: No suspicious osseous lesions. IMPRESSION: * Soft tissue attenuation of the anterior abdominal wall without distinct fluid collection. This may represent developing cellulitis or seroma status postop. Cannot exclude abscess formation within this process, and cannot exclude necrotizing fasciitis in this setting and findings best assessed in combination with other clinical data. * Bilateral lower lung airspace disease with differential diagnosis including atelectasis, or pneumonia. Findings best assessed in combination with other clinical data.. * * Indeterminate focal fatty stranding within the pelvis which may represent some peritoneal fluid axial image 89 series 302 lateral to the rectum on both sides. This may represent some postoperative fluid but I cannot exclude some early abscess formation and certainly cannot exclude bowel setting. Close clinical and follow-up CT abdomen pelvis using oral contrast might be considered if indicated clinically. THIS REPORT CONTAINS A SIGNIFICANT RESULT AND/OR RECOMMENDATION, WHICH REQUIRES THE ATTENTION OF THE LICENSED CAREGIVER RESPONSIBLE FOR THIS PATIENT. THEREFORE, I SPECIFICALLY DESIGNATED THIS REPORT TO BE TELEPHONED BY THE RADIOLOGY DEPARTMENT. * Approved by Kevin Lezama DO on 04/08/2024 3:35 PM IKyle MD have personally reviewed the image(s) and agree with and/or edited the report 7 Finalized by Kyle Solorio MD on 04/08/2024 4:09 PM [facility] Radiology Study observation (narrative) [facility] CT Abdomen and Pelvis W cont rast IVOrdered By: Kyle Solorio on 04-08-2024 [facility] Work Phone: ECG 12 leadon 04-08-2024 TRACEMASTERVUE [facility] Laboratory - Microbiology an d Antimicrobial susceptibilityon 04-08-2024 FLUAV+FLUBV RNA SAURABH+probe Ql (Unsp spec) Negative Negative^Neg ative [facility] Lactate (P anuradha) [Moles/Vol]o n 04-08-2024 [facility]act[facility] w/ Reflexon 04-08-19 25 Lactate (P anuradha) [Moles/Vol] 0.8 mmol/L 0.4 - 2.0 mmol/L [facility] Comment on above: Result did not trigger repeat Lactate, re-order if needed. Liver panelon 04-08-2024 Albumin [Mass/Vol] 3.9 g/dL 3.2 - 5.3 g/dL [facility] ALP [Catalytic activity/Vol] 88 U/L 39 - 130 U/L [facility] ALT No additional P-5'-P [Catalytic activity/Vol] 59 U/L High 0 - 31 U/L [facility] AST [Catalytic activity/Vol] 26 U/L 0 - 41 U/L [facility] Bilirubin [Mass/Vol] 0.7 mg/dL 0.3 - 1 .2 mg/dL [facility] Bilirubin.direct [Mass/Vol] 0 mg/dL 0.0 - 0.4 mg/dL [facility] Interpretation and review of laboratory results Abnormal [facility] Protein [Mass/Vol] 7.3 g/dL 6.0 - 8.0 g/dL [facility] Magnesiumon 04-08-2024 Magnesium [Mass/Vol] 1.8 mg/dL 1.8 - 2 .6 mg/dL [facility] No Panel Informationon 04-08 [facility] POCT Nursing Urine Macroscop ic UAon 04-08-2024 Bilirubin Ql (U) Negative Negative^Ne g ative [facility] Glucose [Mass/Vol] Negative Negative^ Neg ative mg/dL [facility] Hemoglobin Ql (U) Trace Abnormal Negative^N eg ative [facility] Interpretation and review of laboratory results Abnormal [facility] Ketones (U) [Mass/Vol] Negative Negat manjinder^Neg ative mg/dL [facility] Leukocyte esterase Test strip Ql (U) Negative Negative^Neg ative [facility] Nitrite Ql (U) Negative Negative^Neg ative [facility] pH (U) 7.5 [pH] 5.0 - 8.5 [facility] Protein Ql (U) Trace Abnormal Negative^Neg ative mg/dL [facility] Specific gravity (U) [Rel density] 1.02 1.003 - 1.035 [facility] Urobilinogen Qn (U) 0.2 NINF [facility] Protime & INRon 04-08-2024 INR Coag (PPP) [Relative time] 1.3 {INR} High [facility] Interpretation and review of laboratory results Abnormal [facility] PT Coag (PPP) [Time] 14.7 s [facility] SARS/FLU A+B/RSV by NAAT/Mol ecular (M4RT Collection Tube)on 04-08-2024 RSV RNA SAURABH+probe Nom (Unsp spec) Negative Negative^Neg ative [facility] SARS-CoV-2 (COVID-19) RNA SAURABH+probe Ql (Resp) Not detected Not Detected^Not Detected [facility] Comment on above: NOTE The Xpert Xpress SARS-CoV-2/Flu/RSV Plus test is a rapid, multiplexed real-time RT-PCR test intended for the simultaneous qualitative detection and differentiation of SARS-CoV-2, influenza A, influenza B and respiratory syncytial virus (RSV) viral RNA from individuals suspected of respiratory viral infection consistent with COVID-19 by their healthcare provider. This test has not been validated in asymptomatic patients. The Xpert Xpress SARS-CoV-2 test is intended for use by qualified and trained operators who are performing tests using either [employer] or [employer] systems and is limited to laboratories that meet the CLIA requirements to perform high and moderate complexity tests. The Xpert Xpress SARS-CoV-2/Flu/RSV Plus is only for use under the Food and Drug Administration's Emergency Use Authorization. Results are for the simultaneous detection and differentiation of SARS-CoV-2, influenza A, influenza B and RSV nucleic acids in clinical specimens. SARS-CoV-2, influenza A, influenza B and RSV RNA identified by this test are generally detectable in upper respiratory samples during the acute phase of infection. Positive results are indicative of the presence of the identified virus, but do not rule out bacterial infection or co-infection with other pathogens not detected by this test. Clinical correlation with patient history and other diagnostic information is necessary to determine patient infection status. The agent detected may not be the definite cause of disease. Negative results do not preclude SARS-CoV-2, influenza A, influenza B and RSV infection and should not be used as the sole basis for treatment or other patient management decisions. Negative results must be combined with clinical observations, patient history and epidemiological information. An Invalid result may occur with specimen-associated inhibition unable to be resolved with specimen repeat. Fact Sheet for Healthcare Providers: https://www.fda.gov/media/715697/download Fact Sheet for Patients: https://www.fda.gov/media/778237/download [facility] Thyroid profile includes TSH FT4on 04-08-2024 Free T4 [Mass/Vol] 0.62 ng/dL 0.61 - 1. 60 ng/dL [facility] TSH Qn 0.54 m[IU]/L [facility] Troponin I, High Sensitivity on 04-08-2024 Troponin I.cardiac High sensitivity method [Mass/Vol] 2 ng/L NINF - 16 ng/L [facility] Troponin I, High Sensitivity 1 Houron 04-08-2024 Troponin I.cardiac High sensitivity method [Mass/Vol] 2 ng/L NINF - 16 ng/L [facility] Troponin I.cardiac High sens itivity method [Mass/Vol]on 04-08-2024 [facility] XR Chest Single viewon 04-08 XR CHEST 1 VW History: Short of breath. One view study. Comparison: 01/23/2024 Impression: * Lungs are now clear. No focal airspace disease or infiltrate is appreciated. No acute process is seen. 8 Finalized by Renetta Andrea MD on 04/08/2024 2:12 PM SE[employer]ACS Renetta Andrea MD - 04/08/2024 XR CHEST 1 VW History: Short of breath. One view study. Comparison: 01/23/2024 Impression: * Lungs are now clear. No focal airspace disease or infiltrate is appreciated. No acute process is seen. 8 Finalized by Renetta Andrea MD on 04/08/2024 2:12 PM [facility] Radiology Study observation (narrative) [facility] XR Chest Single viewOrdered By: Renetta Andrea on 04-08-2024 [facility] Work Phone: ECG 12 leadon 03-26-2024 TRACEMASTERVUE [facility] ABO Rh Repeaton 03-25-2024 ABO O [facility] Rh Nom (Bld) Positive [facility] Type and screen(includes ind irect ady)on 03-25-2024 ABO O [facility] Rh Nom (Bld) Positive [facility] Respiratory allergy panelon 03-21-2024 A. alternata IgE Qn (S) kU/L NINF - 0.10 kU/L [facility] Comment on above: Class 0: Normal A. fumigatus IgE Qn (S) kU/L NINF - 0.10 kU/L [facility] Comment on above: Class 0: Normal Tristan[place] house dust mite IgE Qn (S) kU/L NINF - 0.10 kU/L [facility] Comment on above: Class 0: Normal [place] grass IgE Qn (S) 0.95 kU/L High NINF - 0.10 kU/L [facility] Comment on above: Class 2:Moderate lev el of Allergy, indicative of stronger ongoing sensitization Boxelder IgE Qn (S) 0.15 kU/L High NINF - 0 .10 kU/L [facility] Comment on above: Class 0/1: Low level of Allergy, ongoing sensitization C. herbarum IgE Qn (S) kU/L NINF - 0.10 kU/L [facility] Comment on above: Class 0: Normal [place] Pollen IgE Qn (S) kU/L NINF - 0.10 kU/L [facility] Comment on above: Class 0: Normal Cat dander IgE Qn (S) 6.53 kU/L High NINF - 0.10 kU/L [facility] Comment on above: Class 3:High level o f Allergy, indicative of high level sensitization Cocklebur IgE Qn (S) 0.14 kU/L High NINF - 0.10 kU/L [facility] Comment on above: Class 0/1: Low level of Allergy, ongoing sensitization Cockroach IgE Qn (S) kU/L NINF - 0.10 kU/L [facility] Comment on above: Class 0: Normal Common Pigweed IgE Qn (S) kU/L NINF - 0.10 kU/L [facility] Comment on above: Class 0: Normal Common Ragweed IgE Qn (S) 0.37 kU/L High NINF - 0.10 kU/L [facility] Comment on above: Class 1:Low level of Allergy, indicative of ongoing sensitization Cecil IgE Qn (S) 0.25 kU/L High NINF - 0.10 kU/L [facility] Comment on above: Class 0/1: Low level of Allergy, ongoing sensitization Dog dander IgE Qn (S) 52.5 kU/L High NINF - 0.10 kU/L [facility] Comment on above: Class 5:Very High le kyara of Allergy,indicative of very high level sensitization house dust mite IgE Qn (S) kU/L NINF - 0.10 kU/L [facility] Comment on above: Class 0: Normal Goosefoot IgE Qn (S) kU/L NINF - 0.10 kU/L [facility] Comment on above: Class 0: Normal IgE Qn 602 [IU]/L High [facility] Interpretation and review of laboratory results Abnormal [facility] Ike grass IgE Qn (S) 0.96 kU/L [facility] Comment on above: Class 2:Moderate lev el of Allergy, indicative of stronger ongoing sensitization [place] blue grass IgE Qn (S) 2.55 kU/L High NINF - 0.10 kU/L [facility] Comment on above: Class 2:Moderate lev el of Allergy, indicative of stronger ongoing sensitization [place] IgE Qn (S) kU/L NINF - 0.10 kU/L [facility] Comment on above: Class 0: Normal Marte Elder IgE Qn (S) kU/L NINF - 0.10 kU/L [facility] Comment on above: Class 0: Normal [place] Juniper IgE Qn (S) kU/L NINF - 0.10 kU/L [facility] Comment on above: Class 0: Normal Mouse urine proteins IgE Qn (S) 0.34 kU/L High NINF - 0.10 kU/L [facility] Comment on above: Class 0/1: Low level of Allergy, ongoing sensitization Mugwort IgE Qn (S) kU/L NINF - 0. 10 kU/L [facility] Comment on above: Class 0: Normal Nettle IgE Qn (S) kU/L NINF - 0.1 0 kU/L [facility] Comment on above: Class 0: Normal P. notatum IgE Qn (S) kU/L NINF - 0.10 kU/L [facility] Comment on above: Class 0: Normal Pecan or Pitkin Tree IgE Qn (S) 0.17 kU/L High NINF - 0.10 kU/L [facility] Comment on above: Class 0/1: Low level of Allergy, ongoing sensitization Saltwort IgE Qn (S) 0.38 kU/L High NINF - 0 .10 kU/L [facility] Comment on above: Class 1:Low level of Allergy, indicative of ongoing sensitization Sheep Barber IgE Qn (S) kU/L NINF - 0.10 kU/L [facility] Comment on above: Class 0: Normal [place]ch IgE Qn (S) kU/L NINF - 0.10 kU/L [facility] Comment on above: Class 0: Normal Johan IgE Qn (S) 1.92 kU/L High NINF - 0. 10 kU/L [facility] Comment on above: Class 2:Moderate lev el of Allergy, indicative of stronger ongoing sensitization [place] IgE Qn (S) kU/L NINF - 0.10 kU/L [facility] Comment on above: Class 0: Normal [place]m IgE Qn (S) kU/L NINF - 0.10 kU/L [facility] Comment on above: Class 0: Normal White mulberry IgE Qn (S) kU/L NINF - 0.10 kU/L [facility] Comment on above: Class 0: Normal [place] IgE Qn (S) kU/L NINF - 0.10 kU/L [facility] Comment on above: Class 0: Normal [facility] Pulmonary function test Spir ometry (Flow Volume Loop)Ordered By: Dinorah Cummins on 03-20-2024 [facility] CA 125on 03-18-2024 Cancer Ag 125 Qn 7 [arb'U]/mL 0 - 35 U/mL [facility] Comment on above: The method used for this test is Olga Darren DXI chemiluminescent immunoassay. Values obtained by different assay methods cannot be used interchangeably. CBC auto differentialon 02-21 Basophils (Bld) [#/Vol] 0 10*3/uL [facility] Basophils/100 WBC (Bld) 0.6 % [facility] Eosinophils (Bld) [#/Vol] 0.5 10*3/uL High [facility] Eosinophils/100 WBC (Bld) 8.4 % [facility] Erythrocyte distribution width (RBC) [Ratio] 13.6 % 11.5 - 15.0 % [facility] Hematocrit (Bld) [Volume fraction] 40.6 % 35 - 47 % [facility] Hemoglobin (Bld) [Mass/Vol] 13.7 g/dL 11.7 - 15.5 g/dL [facility] Interpretation and review of laboratory results Abnormal [facility] Lymphocytes (Bld) [#/Vol] 1.3 10*3/uL [facility] Lymphocytes/100 WBC (Bld) 23.5 % [facility] MCH (RBC) [Entitic mass] 29.2 pg 27 - 34 pg [facility] MCHC (RBC) [Mass/Vol] 33.7 g/dL 32 - 36 g/dL [facility] MCV (RBC) [Entitic vol] 87 fL 80 - 100 fL [facility] Monocytes (Bld) [#/Vol] 0.3 10*3/uL [facility] Monocytes/100 WBC (Bld) 5.3 % [facility] Neutrophils (Bld) [#/Vol] 3.5 10*3/uL [facility] Neutrophils/100 WBC (Bld) 62.2 % [facility] Platelet mean volume (Bld) [Entitic vol] 8.9 fL 7 - 12 fL [facility] Platelets (Bld) [#/Vol] 233 10*3/uL [facility] RBC (Bld) [#/Vol] 4.67 10*6/uL [facility] WBC corrected for nucl RBC Auto (Bld) [#/Vol] 5.7 [facility] CEAon 03-18-2024 Carcinoembryonic Ag [Mass/Vol] 0.9 ng/mL 0.0 - 3.0 ng/mL [facility] Comment on above: 0.0-3.0 ng/mL FOR NON SMOKERS 0.0-5.0 ng/mL FOR SMOKERS The method used for this test is Olga Light Harmonic DXI chemiluminescent immunoassay. Values obtained by different assay methods cannot be used interchangeably. Cancer Ag 125 Qnon [facility] Cancer Ag 19-9 Qnon 03-18-19 25 [facility] Cancer antigen 19-9on 2024 Cancer Ag 19-9 Qn U/mL 0.0 - 35.0 U/mL [facility] Comment on above: The method used for this test is Olga Clover DXI chemiluminescent immunoassay. Values obtained by different assay methods cannot be used interchangeably. Carcinoembryonic Ag [Mass/Vo l]on 03-18-2024 [facility] Comprehensive metabolic pane srikanth 03-18-2024 Albumin [Mass/Vol] 4.3 g/dL 3.2 - 5.3 g/dL [facility] ALP [Catalytic activity/Vol] 51 U/L 39 - 130 U/L [facility] ALT No additional P-5'-P [Catalytic activity/Vol] 21 U/L 0 - 31 U/L [facility] Anion gap [Moles/Vol] 10 mmol/L 5 - 15 mmol/L [facility] AST [Catalytic activity/Vol] 15 U/L 0 - 41 U/L [facility] Bilirubin [Mass/Vol] 0.5 mg/dL 0.3 - 1 .2 mg/dL [facility] Calcium [Mass/Vol] 9.2 mg/dL 8.5 - 10. 5 mg/dL [facility] Chloride [Moles/Vol] 104 mmol/L 98 - 10 9 mmol/L [facility] CO2 [Moles/Vol] 27 mmol/L 22 - 32 mmol/L [facility] Creatinine [Mass/Vol] 0.62 mg/dL 0.40 - 1.00 mg/dL [facility] Comment on above: METHOD TRACEABLE TO [facility] STANDARD eGFR (CKD-EPI)non-race dependent - PINF [facility] Comment on above: Reported eGFR is based on the CKD-EPI 2020 equation that does not use a race coefficient. Glucose [Mass/Vol] 88 mg/dL 65 - 99 mg/dL [facility] Interpretation and review of laboratory results Abnormal [facility] Potassium [Moles/Vol] 3.4 mmol/L Low 3.5 - 5.0 mmol/L [facility] Protein [Mass/Vol] 6.6 g/dL 6.0 - 8.0 g/dL [facility] Sodium [Moles/Vol] 141 mmol/L 134 - 146 mmol/L [facility] Urea nitrogen [Mass/Vol] 12 mg/dL 5 - 23 mg/dL [facility] CNPNon 02-22-2024 CNPN Telephone ([facility]) ---- APRIL NICHOLSON ([id number]) 1995 F Date Time Provider Department 02/22/24 SAGAR BARTH [facility] During your visit today, we recorded the following information about you: Jannette Mcleod RN 02/22/2024 12:04 PM Signed Prior Authorization submitted via [employer] on 02/22/2024: Insurance: [place] Medicaid Medication: Zolmitriptan Chong Code: [id number] Awaiting Response Jannette Mcleod RN 03/14/2024 2:23 [...] Date Reviewed: 01/22/2024 Reviewed by: Raiza Morales APRN.INTENSIVE CARE UNIT NURSE - Fully Assessed Reason for Visit: Insurance Authorization [[id number]] Cmt: Zolmitriptan Prescriptions as of 03/14/2024 - ZOLMitriptan (ZOMIG) 5 mg nasal spray Use 1 [place] in the nose as needed at onset [...] Status:Closed by JANNETTE MCLEOD on 02/22/24 Normal [facility] Pathology Request for Lab Co rpon 02-16-2024 Pathology Request for Lab Lilly Normal [facility] Comment on above: Order Comment: PATHO LOGY GI SPECIMEN Result Comment: See report. Scanned copy available in EMR. PERFORMED BY: [place] [address] PATHOLOGIST BACTERIOLOGIST [employer]UST[employer] PALOMO JOYCE M.D. Performed By: #### P ATH TO [facility] #### [address] CNPWendy 01-29-2024 CNPN Telephone ([facility]) ---- APRIL NICHOLSON ([id number]) 1995 F Date Time Provider Department 01/29/24 SAGAR BARTH [facility] During your visit today, we recorded the following information about you: Kelsey Patel 01/29/2024 10:53 AM Signed Name of Caller: nicky Relationship to patient: pharmacy Last visit in this department: 09/19/2023 Reason for Call: Other : need to verify quantity on zolmitriptan. Callback number: [phone] Amy Shrestha MA 01/29/2024 12:06 PM Signed Per last Rx on 11/10/2023: Disp Refills Start End ZOLMitriptan (ZOMIG) 5 mg nasal spray 10 Each 5 11/10/2023 -- Sig: Use 1 [place] in the nose as needed at onset of migraine headache. If symptoms persist or return, may repeat dose in other nostril after 2 hours. Maximum of 2 sprays per 24 hours I called the pharmacy and hey need to know if Provider would like to dispense #6 or #12 cartridges. They do not come in 10. Please advise. Thank you Sagar Barth APRN.CNP 01/30/2024 2:59 PM Addendum Dispense 12 pls. I rewrote the rx. Sagar Barth APRN.Sagar Glass APRN.CNP 01/30/2024 2:59 PM Signed The following approved medication requests have been transmitted electronically. Requested Prescriptions Signed Prescriptions Disp Refills ZOLMitriptan (ZOMIG) 5 mg nasal spray 12 Each 5 Sig: Use 1 [place] in the nose as needed at onset of migraine headache. If symptoms persist or return, may repeat dose in other nostril after 2 hours. Maximum of 2 sprays per 24 hours Authorizing Provider: SAGAR BARTH APRN.CNP Green, Koli, APRN.CNP 01/30/2024 2:59 PM Signed Addended by: SAGAR BARTH on: 01/30/2024 02:59 PM Modules accepted: [...] Date Reviewed: 01/22/2024 Reviewed by: Raiza Morales APRN.INTENSIVE CARE UNIT NURSE - Fully Assessed Order(s):ZOLMitript an (ZOMIG) 5 mg nasal sprayUse 1 [place] in the nose as needed at onset of migraine headache. If symptoms persist or return, may repeat dose in other nostril after 2 hours. Maximum of 2 sprays per 24 hoursDisp: 12 EachRfl: 5 Prescriptions as of 02/01/2024 - ZOLMitriptan (ZOMIG) 5 mg nasal spray Use 1 [place] in the nose as needed at onset [...] 5 01/30/2024 Route: NASAL Sig: Use 1 [place] in the nose as needed at onset of migraine headache. If symptoms persist or return, may repeat dose in other nostril after 2 hours. Maximum of 2 sprays per 24 hours Medications Discontinued During This Encounter Prescriptions - ZOLMitriptan (ZOMIG) 5 mg nasal spray (Discontinued) Use 1 [place] in the nose as needed at onset of migraine headache. If symptoms persist or return, may repeat dose in other nostril after 2 hours. Maximum of 2 sprays per 24 hours Encounter Status:Closed by KELSEY PATEL on 01/30/24 [facility] CNOVon 01-22-2024 CNOV Office Visit ([facility]) ---- GIUILAAPRIL Fernández ([id number]) 1995 F Date Time Provider Department 01/22/24 2:30 PM RAIZA MORALES [facility] During your visit today, we recorded the following information about you: Raiza Morales APRN.[facility] 01/22/2024 1:57 PM Signed [facility] Infusion JUAN A Note Subjective: April Pradeep RiosNicholson is a 28 year old year old [...] Lymph 1.00 - 4.00 k/uL 0.84 Abs [place] <0.87 k/uL 0.06 Abs Eosin <0.46 k/uL [...] ZOLMitriptan (ZOMIG) 5 mg nasal sprayUse 1 [place] in the nose as needed at onset [...] and clear, coherent, and relevant. 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 Attention span and concentration are good. Cranial Nerves: VII-face is symmetric without evidence of weakness. VIII-hearing intact. Assessment: (G43.711) Chronic migraine without aura, with intractable migraine, so stated, with status migrainosus (primary encounter diagnosis) Plan: April Nicholson is a 28 year old year [...] IV fluids (more content not included)... Normal [facility] CNOVon 09-19-2023 CNOV Office Visit ([facility]) ---- APRIL NICHOLSON ([id number]) 1995 F Date Time Provider Department 09/19/23 2:30 PM SAGAR BARTH [facility] During your visit today, we recorded the following information about you: Temperature Pulse Blood pressure Weight 99.1 degrees 80/minute 115/81 118.8 kg Height 1.584 m Sagar Barth APRN.INTENSIVE CARE UNIT NURSE 09/19/2023 3:12 PM Signed Outpatient [facility]ache [facility] - Follow Up Visit Accompanied by: Self Primary Problem List: ACTIVE PROBLEM LIST Seizure-Like Activity (Hcc) Psychogenic Nonepileptic Seizure Intractable Chronic Migraine Without Aura and With Status Migrainosus Chronic Migraine Without Aura, With Intractable Migraine, So Stated, With Status Migrainosus Chief Complaint: Patient presents with: Headache Interval Headache History: April Nicholson is a 27 year old year [...] XL, Qudexy) Anti-Depressant and Antipsychotic Amitriptyline (Elavil) [place] (Eskalith, Lithobid) Nortriptyline (Pamelor, Aventyl) Anti-Migraine Dihydroergotamine [...] ZOLMitriptan (ZOMIG) 5 mg nasal sprayUse 1 [place] in the nose as needed at onset [...] and discussed these with the patient: yes Sagar Barth APRN.[facility] HEADACHE SCORES: 03/22/2023 07/10/2023 09/19/2023 Headache Questions ER visits since last office visit: 6 8 6 Hospital stays since last office visit 2 1 Limited ADL (more content not included)... Normal [facility] CNOVon 08-18-2023 CNOV Office Visit ([facility]) ---- APRIL NICHOLSON ([id number]) 1995 F Date Time Provider Department 08/18/23 [...] diagnosis) Psychogenic nonepileptic seizure Interval Headache History: April Nicholson is a 27 year old year [...] 1 month Curtis Lepe PA-C Headache Section [facility] August 18, 2023 Curtis Lepe PA-C 08/18/2023 2:39 PM Signed You received a greater occipital nerve block (GONB) today You may feel sore tomorrow at the site of the injection. You may use heat or ice for discomfort and gentle stretching. This should resolve in 24-36 hours. Greater Occipital Nerve Block (GONB) Article in [employer] Journal By: Molina Barraza MD Many patients with chronic headache report that their (more content not included)... Normal [facility] CNOVon 04-14-2023 CNOV Office Visit ([facility]) ---- APRIL NICHOLSON ([id number]) 1995 F Date Time Provider Department 04/14/23 8:30 AM SUZAN DRIVER [facility] During your visit today, we recorded the following information about you: Suzan Driver APRN.INTENSIVE CARE UNIT NURSE 04/14/2023 10:49 AM Signed [facility]fusion JUAN A Note Primary Problem List: ACTIVE PROBLEM LIST Seizure-Like Activity (Hcc) Psychogenic Nonepileptic Seizure Intractable Chronic Migraine Without Aura and With Status Migrainosus Chronic Migraine Without Aura, With Intractable Migraine, So Stated, With Status Migrainosus Subjective: April Nicholson is a 27 year old year old female, with a history of asthma, anxiety, depression, PCOS, occipital neuralgia, psychogenic nonepileptic seizures, and migraine following up today for day 3 of infusions. 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 Attention span and concentration are good. Cranial Nerves: VII-face is symmetric without evidence of weakness. VIII-hearing intact. Assessment: Intractable chronic migraine without aura and with status migrainosus (primary encounter diagnosis) Pt reports zofran not very effective, but she does respond well to compazine. Compazine added to replace zofran for 2nd line antiemetic. Plan: April Nicholson is a 27 year old year old female, following up today for day 3 of infusions. Response to infusions: pain and nausea are improving Follow up/ discharge plan: f/u in 3 months Start aimovig Level of service: Est level 4 (30-39 min). Time spent 30 min on the day of service, which included preparing to see the patient, [id number] patient care, completing clinical documentation, obtaining and/or reviewing separately obtained history, performing a medically appropriate examination, counseling and educating the patient/family/rn coronary care unit, and ordering medications, tests, or procedures. Suzan Driver APRN.INTENSIVE CARE UNIT NURSE Headache Section [facility] Suzan Driver APRN.CNP 04/14/2023 10:49 AM Signed Follow up/ discharge plan: f/u in 3 months Start aimovig this Aimovig Information Aimovig is a CGRP monoclonal antibody (MAB). CGRP is a substance in the brain that plays a chong role in causing migraine. Aimovig was specifically developed t (more content not included)... Normal [facility] APRIL NICHOLSON ([id number]) 1995 F Date Time Provider Department 04/13/23 SAGAR BARTH [facility] During your visit today, we recorded the following information about you: Getachew Cancino RN 04/13/2023 9:30 AM Signed Patient [...] - Hives Date Reviewed: 04/13/2023 Reviewed by: Getachew Cancino RN - Fully Assessed Reason for [...] (ZOMIG) 5 mg nasal spray Use 1 [place] in the nose as needed at onset [...] aura, with intractable* 024 Encounter Status:Closed by GETACHEW CANCINO on 04/13/23 Normal [facility] CNOVon 04-12-2023 CNOV Office Visit ([facility]) ---- APRIL NICHOLSON ([id number]) 1995 F Date Time Provider Department 04/12/23 1:30 PM SUZAN DRIVER [facility] During your visit today, we recorded the following information about you: Suzan Driver APRN.INTENSIVE CARE UNIT NURSE 04/12/2023 11:52 AM Signed General Headache [...] much light. These can be obtained at [employer] or [employer]: see list below. 2. Limit use of acute treatments (ficu-lnn-dpoyxon medications, triptans, etc.) to no more than [...] and quiet environment. Relax and reduce stress. Qelfxdr0Pbwaw is a free juan a that can instruct you on some simple relaxtion and breathing techniques. Http://[employer] is a free website that provides teaching videos on relaxation. Also, there are many apps that can be downloaded for ?mindful? relaxation. An juan a called YOGA NIDRA will help walk you [...] epilepsy i (more content not included)... [facility] ([facility]) ---- APRIL NICHOLSON ([id number]) 1995 F Date Time Provider Department 03/27/23 ANGELY COTTON [facility] During your visit today, we recorded the following information about you: Angely Cotton RN 03/27/2023 1:05 PM Signed [facility] received prescription(s) for Aimovig 70MG/ML auto-injectors . Benefits investigation was conducted, indicating that a prior authorization is required. PA was initiated and pending review through [employer]. All pertinent clinical information was submitted to insurance. [facility] Chong: [id number] Ordering Provider: Sagar Barth APRN.Angely Schaefer RN [facility] P: , F: Angely Cotton RN 04/03/2023 12:43 PM Signed Ambulatory Pharmacy Prior Authorization Note Provider Intervention Required?: No- Pharmacy completed on your behalf. Rx Plan: Medicaid MCO ([facility]) Drug: Aimovig 70MG/ML auto-injectors Cover My Meds Chong: [id number] Determination: Approved Prior Authorization/Case #: n/a Prior [...] questions relating to this submission, please contact [facility] at [phone] Allergies As of Date: 03/27/2023 Noted Allergy [...] - Hives Date Reviewed: 03/23/2023 Reviewed by: Sagar Barth APRN.INTENSIVE CARE UNIT NURSE - Fully Assessed Reason for Visit: Insurance Authorization [[id number]] Cmt: Aimovig 70MG/ML auto-injectors Prescriptions as of 04/03/2023 - Phentermine HCl 37.5 mg tablet take 1 tablet by mouth every morning before meals - erenumab-aooe (AIMOVIG AUTOINJECTOR) 70 mg/mL auto-injector Inject 1 mL subcutaneously once every month. Do not shake. - ZOLMitriptan (ZOMIG) 5 mg nasal spray Use 1 [place] in the nose as needed at onset [...] Status:Closed by ANGELY COTTON on 04/03/23 Normal [facility] BLOOD GASES BTYon 06-20-2022 02 MODE ROOM AIR Normal [facility] Comment on above: Performed By: #### B MP #### [facility] [address] [address] [address] Ibis Jimenez ALLENS TEST Positive Normal [facility] Comment on above: Performed By: #### B MP #### [facility] [address] [address] [address] Ibis Jimenez Base excess Calc (Bld) [Moles/Vol] -1.6000 mmol/L Normal -2.0-2.0 [facility] Comment on above: Performed By: #### B MP #### [facility] [address] [address] [address] Ibis Jimenez BIPAP PRESSURE [facility] Comment on above: Performed By: #### B MP #### [facility] [address] [address] [address] Ibis Jimenez CPAP [facility] Comment on above: Performed By: #### B MP #### [facility] [address] [address] [address] Ibis Jimenez FIO2 [facility] Comment on above: Performed By: #### B MP #### [facility] [address] [address] [address] Ibis Jimenez HCO3 (Bld) [Moles/Vol] 23.8 mmol/L Normal 22.0-26.0 [facility] Comment on above: Performed By: #### B MP #### [facility] [address] [place] [address] Dr. Ibis Jimenez LPM [facility] Comment on above: Performed By: #### B MP #### [facility] [address] [address] [address] Ibis Jimenez MINUTE VOLUME Normal [facility] Comment on above: Performed By: #### B MP #### [facility] [address] [address] [address] Ibis Jimenez Oxygen (Bld) [Partial pressure] 75.5 mm[Hg] Critically low 80.0-100.0 [facility] Comment on above: Performed By: #### B MP #### [facility] [address] [place] [address] Dr. Ibis Jimenez Oxygen saturation in Blood 95.8 % Normal 95.0-100.0 [facility] Comment on above: Performed By: #### B MP #### [facility] [address] [address] [address] Ibis Jimenez PCO2 41.8 mmHg Normal 35.0-45.0 [facility] Comment on above: Performed By: #### B MP #### [facility] [address] [place] [address] Dr. Ibis Jimenez PEEP [facility] Comment on above: Performed By: #### B MP #### [facility] [address] [place] [address] Dr. Ibis Jimenez pH (Bld) 7.363 [pH] Normal 7.350-7.450 [facility] Comment on above: Performed By: #### B MP #### [facility] [address] [place] [address] Dr. Ibis Jimenez PIP [facility] Comment on above: Performed By: #### B MP #### [facility] [address] [place] [address] Dr. Ibis Jimenez PS [facility] Comment on above: Performed By: #### B MP #### [facility] [address] [place] [address] Dr. Ibis Jimenez PUNCTURE SITE LR [facility] Comment on above: Performed By: #### B MP #### [facility] [address] [place] [address] Dr. Ibis Jimenez [facility] Comment on above: Performed By: #### B MP #### [facility] [address] [place] [address] Dr. Ibis Jimenez VENT MODE [facility] Comment on above: Performed By: #### B MP #### [facility] [address] [place] [address] Dr. Ibis Jimenez [facility] Comment on above: Performed By: #### B MP #### [facility] [address] [place] [address] Dr. Ibis Jimenez CBC AUTO DIFFon 06-20-2022 BASO # 0.0 103/ul Normal 0.0-0.1 [facility] Comment on above: Performed By: #### A CET, SALYC #### [facility] [address] [place] [address] Dr. Ibis Jimenez Basophils/100 WBC (Bld) 0.5 % Normal 0.2-2.0 [facility] Comment on above: Performed By: #### A CET, SALYC #### [facility] [address] [place] [address] Dr. Ibis Jimenez EO # 0.3 103/ul Normal 0.0-0.7 [facility] Comment on above: Performed By: #### A CET, SALYC #### [facility] [address] [place] [address] Dr. Ibis Jimenez Eosinophils/100 WBC (Bld) 4.2 % Normal 0.9-7.0 [facility] Comment on above: Performed By: #### A CET, SALYC #### [facility] [address] [place] [address] Dr. Ibis Jimenez Erythrocyte distribution width (RBC) [Ratio] 13.2 % Normal 11.0-15.0 [facility] Comment on above: Performed By: #### A CET, SALYC #### [facility] [address] [place] [address] Dr. Ibis Jimenez Hematocrit (Bld) [Volume fraction] 36.5 % Normal 36.0-48.0 [facility] Comment on above: Performed By: #### A CET, SALYC #### [facility] [address] [place] [address] Dr. Ibis Jimenez Hemoglobin (Bld) [Mass/Vol] 11.7 g/dL Critically low 12.0-16.0 [facility] Comment on above: Performed By: #### A CET, SALYC #### [facility] [address] [place] [address] Dr. Ibis Jimenez IG # 0.05 10e3/ul Critically high 0.00-0.[address] [facility] Comment on above: Performed By: #### A CET, SALYC #### [facility] [address] [place] [address] Dr. Ibis Jimenez IG % 0.8 % Critically high 0.0-0.5 [facility] Comment on above: Performed By: #### A CET, SALYC #### [facility] [address] [place] [address] Dr. Ibis Jimenez LYMPH # 1.7 103/ul Normal 1.2-3.8 [facility] Comment on above: Performed By: #### A CET, SALYC #### [facility] [address] [place] [address] Dr. Ibis Jimenez Lymphocytes/100 WBC (Bld) 26.9 % Normal 20.5-60.0 [facility] Comment on above: Performed By: #### A CET, SALYC #### [facility] [address] [place] [address] Dr. Ibis Jimenez MANUAL DIFF REQ NO Normal [facility] Comment on above: Performed By: #### A CET, SALYC #### [facility] [address] [place] [address] Dr. Ibis Jimenez MCH (RBC) [Entitic mass] 28.7 pg Normal 26.7-34.0 [facility] Comment on above: Performed By: #### A CET, SALYC #### [facility] [address] [place] [address] Dr. Ibis Jimenez MCHC (RBC) [Mass/Vol] 32.1 g/dL Normal 29.9-35.2 [facility] Comment on above: Performed By: #### A CET, SALYC #### [facility] [address] [place] [address] Dr. Ibis Jimenez MCV (RBC) [Entitic vol] 89.7 fL Normal 81.0-99.0 [facility] Comment on above: Performed By: #### A CET, SALYC #### [facility] [address] [place] [address] Dr. Ibis Jimenez MONO # 0.6 103/ul Normal 0.3-0.8 [facility] Comment on above: Performed By: #### A CET, SALYC #### [facility] [address] [place] [address] Dr. Ibis Jimenez Monocytes/100 WBC (Bld) 8.9 % Normal 1.7-12.0 [facility] Comment on above: Performed By: #### A CET, SALYC #### [facility] [address] [place] [address] Dr. Ibis Jimenez NEUT # 3.8 103/ul Normal 1.4-6.5 [facility] Comment on above: Performed By: #### A CET, SALYC #### [facility] [address] [place] [address] Dr. Ibis Jimenez Neutrophils/100 WBC (Bld) 58.7 % Normal 43.0-75.0 [facility] Comment on above: Performed By: #### A CET, SALYC #### [facility] [address] [place] [address] Dr. Ibis Jimenez Platelet mean volume (Bld) [Entitic vol] 9.3 fL Critically low 9.5-13.5 [facility] Comment on above: Performed By: #### A CET, SALYC #### [facility] [address] [place] [address] Dr. Ibis Jimenez PLT 188 103/ul Normal 150-450 [facility] Comment on above: Performed By: #### A CET, SALYC #### [facility] [address] [place] [address] Dr. Ibis Jimenez RBC 4.07 106/ul Critically low 4.20-5.40 [facility] Comment on above: Performed By: #### A CET, SALYC #### [facility] [address] [place] [address] Dr. Ibis Jimenez WBC 6.4 103/ul Normal 4.0-11.0 [facility] Comment on above: Performed By: #### A CET, SALYC #### [facility] [address] [place] [address] Dr. Ibis Jimenez DRUG SCREEN RAPID (URINE)on 06-20-2022 AMP Negative Normal NEGATIVE [facility] Comment on above: Performed By: #### B MP #### [facility] [address] [place] [address] Dr. Ibis Jimenez BAR Positive Abnormal NEGATIVE [facility] Comment on above: Performed By: #### B MP #### [facility] [address] [place] [address] Dr. Ibis Jimenez BUP Negative Normal NEGATIVE [facility] Comment on above: Performed By: #### B MP #### [facility] [address] [place] [address] Dr. Ibis Jimenez BZO Positive Abnormal NEGATIVE [facility] Comment on above: Performed By: #### B MP #### [facility] [address] [place] [address] Dr. Ibis Jimenez SEMAJ Negative Normal NEGATIVE [facility] Comment on above: Performed By: #### B MP #### [facility] [address] [place] [address] Dr. Ibis Jimenez CUT-OFFS SEE BELOW Normal [facility] Comment on above: Result Comment: AMP [...] ng/mL Performed By: #### B MP #### [facility] [address] [place] [address] Dr. Ibis Jimenez DRUG CUT HEADER DRUG CLASS TEST SYSTEM CUT-OFF CONCENTRATIONS ARE FOLLOWS: Normal [facility] Comment on above: Performed By: #### B MP #### [facility] [address] [place] [address] Dr. Ibis Jimenez mAMP Negative Normal NEGATIVE [facility] Comment on above: Performed By: #### B MP #### [facility] [address] [place] [address] Dr. Ibis Jimenez MTD Negative Normal NEGATIVE [facility] Comment on above: Performed By: #### B MP #### [facility] [address] [place] [address] Dr. Ibis Jimenez OPI Negative Normal NEGATIVE [facility] Comment on above: Performed By: #### B MP #### [facility] [address] [place] [address] Dr. Ibis Jimenez OXY Negative Normal NEGATIVE [facility] Comment on above: Performed By: #### B MP #### [facility] [address] [address] [address] Ibis Jimenez PCP Negative Normal NEGATIVE [facility] Comment on above: Performed By: #### B MP #### [facility] [address] [address] [address] Ibis Jimenez PPX Negative Normal NEGATIVE [facility] Comment on above: Performed By: #### B MP #### [facility] [address] [place] [address] Dr. Ibis Jimenez TCA Positive Abnormal NEGATIVE [facility] Comment on above: Performed By: #### B MP #### [facility] [address] [place] [address] Dr. Ibis Jimenez THC Positive Abnormal NEGATIVE [facility] Comment on above: Performed By: #### B MP #### [facility] [address] [place] [address] Dr. Ibis Jimenez ER URINE PROFILEon 3 Bilirubin Ql (U) Negative Normal NEGATIVE [facility] Comment on above: Performed By: #### A CET, SALYC #### [facility] [address] [place] [address] Dr. Ibis Jimenez Clarity (U) CLEAR Normal CLEAR [facility] Comment on above: Performed By: #### A CET, SALYC #### [facility] [address] [place] [address] Dr. Ibis Jimenez Color (U) YELLOW Normal YELLOW [facility] Comment on above: Performed By: #### A CET, SALYC #### [facility] [address] [place] [address] Dr. Ibis Jimenez ERUAHD A micrscopic examination will be performed if indicated. Normal [facility] Comment on above: Performed By: #### A CET, SALYC #### [facility] [address] [place] [address] Dr. Ibis Jimenez Glucose Ql (U) Negative Normal NEGATIVE [facility] Comment on above: Performed By: #### A CET, SALYC #### [facility] [address] [place] [address] Dr. Ibis Jimenez Hemoglobin Ql (U) Negative Normal NEGATIVE [facility] Comment on above: Performed By: #### A CET, SALYC #### [facility] [address] [place] [address] Dr. Ibis Jimenez Ketones Ql (U) Negative Normal NEGATIVE [facility] Comment on above: Performed By: #### A CET, SALYC #### [facility] [address] [place] [address] Dr. Ibis Jimenez LEUKOCYTES Negative Normal NEGATIVE [facility] Comment on above: Performed By: #### A CET, SALYC #### [facility] [address] [place] [address] Dr. Ibis Jimenez Nitrite Ql (U) Negative Normal NEGATIVE [facility] Comment on above: Performed By: #### A CET, SALYC #### [facility] [address] [place] [address] Dr. Ibis Jimenez pH (U) 5.0 [pH] Normal 5-9 [facility] Comment on above: Performed By: #### A CET, SALYC #### [facility] [address] [place] [address] Dr. Ibis Jimenez SPEC GRAVITY >=1.030 Abnormal 1.005-<=1.02 5 [facility] Comment on above: Performed By: #### A CET, SALYC #### [facility] [address] [place] [address] Dr. Ibis Jimenez UA PROTEIN Negative Normal NEGATIVE/ TRACE [facility] Comment on above: Performed By: #### A CET, SALYC #### [facility] [address] [place] [address] Dr. Ibis Jimenez UR MICRO IND NOT INDICATED Normal [facility] Comment on above: Performed By: #### A CET, SALYC #### [facility] [address] [place] [address] Dr. Ibis Jimenez Urobilinogen Qn (U) 0.2 {Dinorah'U}/dL Normal 0.2 - 1. 0 [facility] Comment on above: Performed By: #### A KORI DAVIS #### [facility] [address] [address] [address] Ibis Jimenez PROF CHEM 8 (BAS METB)on Anion gap [Moles/Vol] 13.1 mmol/L Normal [facility] Comment on above: Performed By: #### M DAVID #### [facility] [address] [place] [address] Dr. Ibis Jimenez Calcium [Mass/Vol] 8.3 mg/dL Critically low 8.5-10.1 [facility] Comment on above: Performed By: #### M DAVID #### [facility] [address] [place] [address] Dr. Ibis Jimenez Chloride [Moles/Vol] 109 mmol/L Critically high 98-107 [facility] Comment on above: Performed By: #### M DAVID #### [facility] [address] [place] [address] Dr. Ibis Jimenez CO2 [Moles/Vol] 25.7 mmol/L Normal 21.0-32.0 [facility] Comment on above: Performed By: #### M DAVID #### [facility] [address] [place] [address] Dr. Ibis Jimenez Creatinine [Mass/Vol] 0.82 mg/dL Normal 0.55-1.02 [facility] Comment on above: Performed By: #### M DAVID #### [facility] [address] [place] [address] Dr. Ibis Jimenez EGFR-AF SOUTH AFRICAN >60 Normal >=60 [facility] Comment on above: Performed By: #### M DAVID #### [facility] [address] [place] [address] Dr. Ibis Jimenez EGFR-NON AF SOUTH AFRICAN >60 Normal >=60 [facility] Comment on above: Performed By: #### M DAVID #### [facility] [address] [place] [address] Dr. Ibis Jimenez Glucose [Mass/Vol] 95 mg/dL Normal 74-106 [facility] Comment on above: Performed By: #### M DAVID #### [facility] [address] [address] [address] Ibis Jimenez Potassium [Moles/Vol] 3.8 mmol/L Normal 3.5-5.1 [facility] Comment on above: Performed By: #### M DAVID #### [facility] [address] [address] [address] Ibis Jimenez Sodium [Moles/Vol] 144 mmol/L Normal 136-145 [facility] Comment on above: Performed By: #### M DAVID #### [facility] [address] [address] [address] Ibis Jimenez Urea nitrogen [Mass/Vol] 16.0 mg/dL Normal 7.0-18.0 [facility] Comment on above: Performed By: #### M DAVID #### [facility] [address] [address] [address] Ibis Jimenez Urea nitrogen/Creatinine [Mass ratio] 19.5 mg/mg Normal [facility] Comment on above: Performed By: #### M DAVID #### [facility] [address] [address] [address] Ibis Jimenez ACETAMINOPHENon 06-19-2022 Acetaminophen [Mass/Vol] ug/mL Critically low 10.0-30.0 [facility] Comment on above: Performed By: #### A CET SALYC #### [facility] [address] [address] [address] Ibis Jimenez DRUG SCREEN RAPID (URINE)on 06-19-2022 AMP Negative Normal NEGATIVE [facility] Comment on above: Performed By: #### M DAVID #### [facility] [address] [address] [address] Ibis Jimenez BAR Positive Abnormal NEGATIVE [facility] Comment on above: Performed By: #### M DAVID #### [facility] [address] [address] [address] Ibis Jimenez BUP Negative Normal NEGATIVE [facility] Comment on above: Performed By: #### M DAVID #### [facility] [address] [place] [address] Dr. Ibis Jimenez BZO Positive Abnormal NEGATIVE [facility] Comment on above: Performed By: #### M DAVID #### [facility] [address] [place] [address] Dr. Ibis Jimenez SEMAJ Negative Normal NEGATIVE [facility] Comment on above: Performed By: #### M DAVID #### [facility] [address] [place] [address] Dr. Ibis Jimenez CUT-OFFS SEE BELOW Normal [facility] Comment on above: Result Comment: AMP [...] ng/mL Performed By: #### M DAVID #### [facility] [address] [place] [address] Dr. Ibis Jimenez DRUG CUT HEADER DRUG CLASS TEST SYSTEM CUT-OFF CONCENTRATIONS ARE FOLLOWS: Normal [facility] Comment on above: Performed By: #### M DAVID #### [facility] [address] [place] [address] Dr. Ibis Jimenez mAMP Negative Normal NEGATIVE [facility] Comment on above: Performed By: #### M DAVID #### [facility] [address] [place] [address] Dr. Ibis Jimenez MTD Negative Normal NEGATIVE [facility] Comment on above: Performed By: #### M DAVID #### [facility] [address] [place] [address] Dr. Ibis Jimenez OPI Positive Abnormal NEGATIVE [facility] Comment on above: Performed By: #### M DAVID #### [facility] [address] [place] [address] Dr. Ibis Jimenez OXY Negative Normal NEGATIVE [facility] Comment on above: Performed By: #### M DAVID #### [facility] [address] [address] [address] Ibis Jimenez PCP Negative Normal NEGATIVE [facility] Comment on above: Performed By: #### M DAVID #### [facility] [address] [place] [address] Dr. Ibis Jimenez PPX Negative Normal NEGATIVE [facility] Comment on above: Performed By: #### M DAVID #### [facility] [address] [place] [address] Dr. Ibis Jimenez TCA Negative Normal NEGATIVE [facility] Comment on above: Performed By: #### M DAVID #### [facility] [address] [place] [address] Dr. Ibis Jimenez THC Positive Abnormal NEGATIVE [facility] Comment on above: Performed By: #### M DAVID #### [facility] [address] [place] [address] Dr. Ibis Jimenez ER URINE PROFILEon 3 Bilirubin Ql (U) Negative Normal NEGATIVE [facility] Comment on above: Performed By: #### M DAVID #### [facility] [address] [place] [address] Dr. Ibis Jimenez Clarity (U) CLEAR Normal CLEAR [facility] Comment on above: Performed By: #### M DAVID #### [facility] [address] [place] [address] Dr. Ibis Jimenez Color (U) YELLOW Normal YELLOW [facility] Comment on above: Performed By: #### M DAVID #### [facility] [address] [place] [address] Dr. Ibis RODRIGUEZ A micrscopic examination will be performed if indicated. Normal [facility] Comment on above: Performed By: #### M DAVID #### [facility] [address] [place] [address] Dr. Ibis Jimenez Glucose Ql (U) Negative Normal NEGATIVE [facility] Comment on above: Performed By: #### M DAVID #### [facility] [address] [address] [address] Ibis Jimenez Hemoglobin Ql (U) TRACE-INTACT Abnormal NEGATIVE [facility] Comment on above: Performed By: #### M DAVID #### [facility] [address] [place] [address] Dr. Ibis Jimenez Ketones Ql (U) Negative Normal NEGATIVE [facility] Comment on above: Performed By: #### M DAVID #### [facility] [address] [place] [address] Dr. Ibis Jimenez LEUKOCYTES Negative Normal NEGATIVE [facility] Comment on above: Performed By: #### M DAVID #### [facility] [address] [place] [address] Dr. Ibis Jimenez Nitrite Ql (U) Negative Normal NEGATIVE [facility] Comment on above: Performed By: #### M DAVID #### [facility] [address] [place] [address] Dr. Ibis Jimenez pH (U) 6.0 [pH] Normal 5-9 [facility] Comment on above: Performed By: #### M DAVID #### [facility] [address] [place] [address] Dr. Ibis Jimenez Protein (U) [Mass/Vol] 30 mg/dL Abnormal NEGAT MANJINDER/ TRACE [facility] Comment on above: Performed By: #### M DAVID #### [facility] [address] [place] [address] Dr. Ibis Jimenez SPEC GRAVITY 1.025 Normal 1.005-<=1.02 5 [facility] Comment on above: Performed By: #### M DAVID #### [facility] [address] [place] [address] Dr. Ibis Jimenez UR MICRO IND INDICATED Normal [facility] Comment on above: Performed By: #### M DAVID #### [facility] [address] [place] [address] Dr. Ibis Jimenez Urobilinogen Qn (U) 0.2 {Dinorah'U}/dL Normal 0.2 - 1. 0 [facility] Comment on above: Performed By: #### M DAVID #### [facility] [address] [place] [address] Dr. Ibis Jimenez ETHANOL (BLD ALC)on 06-20-19 ALC NOTE NOTE: 80 mg/dl is the legal limit for a blood alcohol level Normal [facility] Comment on above: Performed By: #### A MM #### [facility] [address] [place] [address] Dr. Ibis Jimenez Ethanol [Mass/Vol] mg/dL Normal [facility] Comment on above: Performed By: #### A MM #### [facility] [address] [place] [address] Dr. Ibis Jimenez POINT OF CARE GLUCOSEon 05-23 Glucose [Mass/Vol] 88 mg/dL Normal 74-106 [facility] Comment on above: Performed By: #### C VDTBH #### [facility] [address] [place] [address] Dr. Ibis Jimenez URon 06-19-2022 , QUAL Negative Normal NEGATIVE [facility] Comment on above: Performed By: #### M DAVID #### [facility] [address] [place] [address] Dr. Ibis Jimenez PROF CHEM 8 (BAS METB)on Anion gap [Moles/Vol] 12.6 mmol/L Normal [facility] Comment on above: Performed By: #### A MM #### [facility] [address] [place] [address] Dr. Ibis Jimenez Calcium [Mass/Vol] 8.4 mg/dL Critically low 8.5-10.1 [facility] Comment on above: Performed By: #### A MM #### [facility] [address] [place] [address] Dr. Ibis Jimenez Chloride [Moles/Vol] 107 mmol/L Normal 98-107 [facility] Comment on above: Performed By: #### A MM #### [facility] [address] [place] [address] Dr. Ibis Jimenez CO2 [Moles/Vol] 22.5 mmol/L Normal 21.0-32.0 [facility] Comment on above: Performed By: #### A MM #### [facility] [address] [place] [address] Dr. Ibis Jimenez Creatinine [Mass/Vol] 0.82 mg/dL Normal 0.55-1.02 [facility] Comment on above: Performed By: #### A MM #### [facility] [address] [address] [address] Ibis Jimenez EGFR-AF SOUTH AFRICAN >60 Normal >=60 [facility] Comment on above: Performed By: #### A MM #### [facility] [address] [place] [address] Dr. Ibis Jimenez EGFR-NON AF SOUTH AFRICAN >60 Normal >=60 [facility] Comment on above: Performed By: #### A MM #### [facility] [address] [place] [address] Dr. Ibis Jimenez Glucose [Mass/Vol] 87 mg/dL Normal 74-106 [facility] Comment on above: Performed By: #### A MM #### [facility] [address] [place] [address] Dr. Ibis Jimenez Potassium [Moles/Vol] 4.1 mmol/L Normal 3.5-5.1 [facility] Comment on above: Performed By: #### A MM #### [facility] [address] [place] [address] Dr. Ibis Jimenez Sodium [Moles/Vol] 138 mmol/L Normal 136-145 [facility] Comment on above: Performed By: #### A MM #### [facility] [address] [place] [address] Dr. Ibis Jimenez Urea nitrogen [Mass/Vol] 22.0 mg/dL Critically high 7.0-18.0 [facility] Comment on above: Performed By: #### A MM #### [facility] [address] [place] [address] Dr. Ibis Jimenez Urea nitrogen/Creatinine [Mass ratio] 26.8 mg/mg Normal [facility] Comment on above: Performed By: #### A MM #### [facility] [address] [address] [address] Ibis Jimenez SALICYLATEon 06-19-2022 SALICYLATE <2.8 Normal <=19.9 [facility] Comment on above: Performed By: #### A CET, SALYC #### [facility] [address] [address] [address] Ibis Jimenez URINE MICROSCOPIC ONLYon BACTERIA NONE SEEN Normal NONE SEEN [facility] Comment on above: Performed By: #### M DAVID #### [facility] [address] [address] [address] Ibis Jimenez Bacteria identified Cx Nom (U) NOT INDICATED Normal [facility] Comment on above: Performed By: #### M DAVID #### [facility] [address] [place] [address] Dr. Ibis Jimenez CAST SEEN Abnormal NONE SEEN [facility] Comment on above: Performed By: #### M DAVID #### [facility] [address] [address] [address] Ibis Jimenez Crystals LM Nom (Urine sed) NONE SEEN Normal NONE SEEN [facility] Comment on above: Performed By: #### M DAVID #### [facility] [address] [place] [address] Dr. Ibis Jimenez Epithelial cells LM Ql (Urine sed) MODERATE Abnormal NONE SEEN /RARE [facility] Comment on above: Performed By: #### M DAVID #### [facility] [address] [address] [address] Ibis Jimenez HYALINE CAST FEW Normal [facility] Comment on above: Performed By: #### M DAVID #### [facility] [address] [place] [address] Dr. Ibis Jimenez MUCOUS NONE SEEN Normal NONE SEEN [facility] Comment on above: Performed By: #### M DAVID #### [facility] [address] [place] [address] Dr. Ibis Jimenez RBC 2-5 Abnormal 0-2 [facility] Comment on above: Performed By: #### M DAVID #### [facility] [address] [address] [address] Ibis Jimenez WBC NONE SEEN Normal NONE SEEN [facility] Comment on above: Performed By: #### M DAVID #### [facility] [address] [address] [address] Ibis Jimenez CBC AUTO DIFFon 06-11-2022 BASO # 0.0 103/ul Normal 0.0-0.1 [facility] Comment on above: Performed By: #### C VDTBH #### [facility] [address] [place] [address] Dr. Ibis Jimenez Basophils/100 WBC (Bld) 0.3 % Normal 0.2-2.0 [facility] Comment on above: Performed By: #### C VDTBH #### [facility] [address] [place] [address] Dr. Ibis Jimenez EO # 0.0 103/ul Normal 0.0-0.7 [facility] Comment on above: Performed By: #### C VDTBH #### [facility] [address] [place] [address] Dr. Ibis Jimenez Eosinophils/100 WBC (Bld) 0.1 % Critically low 0.9-7.0 [facility] Comment on above: Performed By: #### C VDTBH #### [facility] [address] [place] [address] Dr. Ibis Jimenez Erythrocyte distribution width (RBC) [Ratio] 13.2 % Normal 11.0-15.0 [facility] Comment on above: Performed By: #### C VDTBH #### [facility] [address] [place] [address] Dr. Ibis Jimenez Hematocrit (Bld) [Volume fraction] 38.5 % Normal 36.0-48.0 [facility] Comment on above: Performed By: #### C VDTBH #### [facility] [address] [place] [address] Dr. Ibis Jimenez Hemoglobin (Bld) [Mass/Vol] 12.4 g/dL Normal 12.0-16.0 [facility] Comment on above: Performed By: #### C VDTBH #### [facility] [address] [place] [address] Dr. Ibis Jimenez IG # 0.20 [id number]/ul Critically high 0.00-0.03 [facility] Comment on above: Performed By: #### C VDTBH #### [facility] [address] [place] [address] Dr. Ibis Jimenez IG % 1.8 % Critically high 0.0-0.5 [facility] Comment on above: Performed By: #### C VDTBH #### [facility] [address] [place] [address] Dr. Ibis Jimenez LYMPH # 0.5 103/ul Critically low 1.2-3.[address] [facility] Comment on above: Performed By: #### C VDTBH #### [facility] [address] [place] [address] Dr. Ibis Jimenez Lymphocytes/100 WBC (Bld) 4.6 % Critically low 20.5-60.0 [facility] Comment on above: Performed By: #### C VDTBH #### [facility] [address] [place] [address] Dr. Ibis Jimenez MANUAL DIFF REQ NO Normal [facility] Comment on above: Performed By: #### C VDTBH #### [facility] [address] [place] [address] Dr. Ibis Jimenez MCH (RBC) [Entitic mass] 28.2 pg Normal 26.7-34.0 [facility] Comment on above: Performed By: #### C VDTBH #### [facility] [address] [place] [address] Dr. Ibis Jimenez MCHC (RBC) [Mass/Vol] 32.2 g/dL Normal 29.9-35.2 [facility] Comment on above: Performed By: #### C VDTBH #### [facility] [address] [place] [address] Dr. Ibis Jimenez MCV (RBC) [Entitic vol] 87.5 fL Normal 81.0-99.0 [facility] Comment on above: Performed By: #### C VDTBH #### [facility] [address] [place] [address] Dr. Ibis Jimenez MONO # 0.1 103/ul Critically low 0.3-0.8 [facility] Comment on above: Performed By: #### C VDTBH #### [facility] [address] [place] [address] Dr. Ibis Jimenez Monocytes/100 WBC (Bld) 1.3 % Critically low 1.7-12.0 [facility] Comment on above: Performed By: #### C VDTBH #### [facility] [address] [place] [address] Dr. Ibis Jimenez NEUT # 10.1 103/ul Critically high 1.4-6.5 [facility] Comment on above: Performed By: #### C VDTB #### [facility] [address] [place] [address] Dr. Ibis Jimenez Neutrophils/100 WBC (Bld) 91.9 % Critically high 43.0-75.0 [facility] Comment on above: Performed By: #### C VDTB #### [facility] [address] [place] [address] Dr. Ibis Jimenez Platelet mean volume (Bld) [Entitic vol] 9.1 fL Critically low 9.5-13.5 [facility] Comment on above: Performed By: #### C VDTBH #### [facility] [address] [place] [address] Dr. Ibis Jimenez PLT 240 103/ul Normal 150-450 [facility] Comment on above: Performed By: #### C VDTBH #### [facility] [address] [place] [address] Dr. Ibis Jimenez RBC 4.40 106/ul Normal 4.20-5.40 [facility] Comment on above: Performed By: #### C VDTBH #### [facility] [address] [place] [address] Dr. Ibis Jimenez WBC 11.0 103/ul Normal 4.0-11.0 [facility] Comment on above: Performed By: #### [facility] #### [facility] [address] [place] [address] Dr. Ibis Jimenez PROF 14(COMP METB)on 023 Albumin [Mass/Vol] 3.3 g/dL Critically low 3.4-5.0 [facility] Comment on above: Performed By: #### B MP #### [facility] [address] [place] [address] Dr. Ibis Jimenez Albumin/Globulin [Mass ratio] 0.9 {ratio} Normal [facility] Comment on above: Performed By: #### B MP #### [facility] [address] [place] [address] Dr. Ibis Jimenez ALP [Catalytic activity/Vol] 63 U/L Normal 46-116 [facility] Comment on above: Performed By: #### B MP #### [facility] [address] [place] [address] Dr. Ibis Jimenez ALT [Catalytic activity/Vol] 32 U/L Normal 14-59 [facility] Comment on above: Performed By: #### B MP #### [facility] [address] [place] [address] Dr. Ibis Jimenez Anion gap [Moles/Vol] 12.9 mmol/L Normal [facility] Comment on above: Performed By: #### B MP #### [facility] [address] [place] [address] Dr. Ibis Jimenez AST [Catalytic activity/Vol] 14 U/L Critically low 15-37 [facility] Comment on above: Performed By: #### B MP #### [facility] [address] [place] [address] Dr. Ibis Jimenez Bilirubin [Mass/Vol] 0.2 mg/dL Normal 0.2-1.0 [facility] Comment on above: Performed By: #### B MP #### [facility] [address] [place] [address] Dr. Ibis Jimenez Calcium [Mass/Vol] 8.5 mg/dL Normal 8.5-10.1 [facility] Comment on above: Performed By: #### B MP #### [facility] [address] [place] [address] Dr. Ibis Jimenez Chloride [Moles/Vol] 106 mmol/L Normal 98-107 [facility] Comment on above: Performed By: #### B MP #### [facility] [address] [place] [address] Dr. Ibis Jimenez CO2 [Moles/Vol] 26.6 mmol/L Normal 21.0-32.0 [facility] Comment on above: Performed By: #### B MP #### [facility] [address] [place] [address] Dr. Ibis Jimenez Creatinine [Mass/Vol] 0.89 mg/dL Normal 0.55-1.02 [facility] Comment on above: Performed By: #### B MP #### [facility] [address] [place] [address] Dr. Ibis Jimenez EGFR-AF SOUTH AFRICAN >60 Normal >=60 [facility] Comment on above: Performed By: #### B MP #### [facility] [address] [place] [address] Dr. Ibis Jimenez EGFR-NON AF SOUTH AFRICAN >60 Normal >=60 [facility] Comment on above: Performed By: #### B MP #### [facility] [address] [place] [address] Dr. Ibis Jimenez Globulin (S) [Mass/Vol] 3.6 g/dL Normal [facility] Comment on above: Performed By: #### B MP #### [facility] [address] [place] [address] Dr. Ibis Jimenez Glucose [Mass/Vol] 134 mg/dL Critically high 74-106 [facility] Comment on above: Performed By: #### B MP #### [facility] [address] [place] [address] Dr. Ibsi Jimenez Potassium [Moles/Vol] 4.5 mmol/L Normal 3.5-5.1 [facility] Comment on above: Performed By: #### B MP #### [facility] [address] [address] [address] Ibis Jimenez Protein [Mass/Vol] 6.9 g/dL Normal 6.4-8.2 [facility] Comment on above: Performed By: #### B MP #### [facility] [address] [address] [address] Ibis Jimenez Sodium [Moles/Vol] 141 mmol/L Normal 136-145 [facility] Comment on above: Performed By: #### B MP #### [facility] [address] [address] [address] Ibis Jimenez Urea nitrogen [Mass/Vol] 15.0 mg/dL Normal 7.0-18.0 [facility] Comment on above: Performed By: #### B MP #### [facility] [address] [address] [address] Ibis Jimenez Urea nitrogen/Creatinine [Mass ratio] 16.9 mg/mg Normal [facility] Comment on above: Performed By: #### B MP #### [facility] [address] HEAD WO CONon 05-23-2022 CT HEAD WO CON EXAMINATION: CT HEAD WO [facility], 05/23/2022 6:45 PM EDT HISTORY: Traumatic [...] NICHOLAS MARCUS Date: 2022-05-23 19:25 Normal [facility] CT LSPINE WO CONon [address] [place] CT CERVICAL SPINE WITHOUT CONTRAST. [...] with vacuum phenomenon. Electronically authenticated by: [facility] Date: 2022-05-23 19:41 Normal [facility] CT HEAD WO CONon 04-01-2022 CT [...] ROBIN IRBY Date: 2022-03-31 22:40 Normal [facility] Covid-19 PCR (CVDTBH)on 03-23 SARS-CoV-2 (COVID-19) RNA SAURABH+probe Ql (Unsp spec) Not detected Normal NOT DETECTED [facility] Comment on above: Result Comment: When [...] for this test is supported by the [place] and Human Service's declaration that [...] used). Performed By: #### C VDTB #### [facility] [address] [place] [address] Dr. Iibs Jimenez ER URINE PROFILEon 3 Bilirubin Ql (U) Negative Normal NEGATIVE [facility] Comment on above: Performed By: #### A CET, SALYC #### [facility] [address] [place] [address] Dr. Ibis Jimenez Clarity (U) CLEAR Normal CLEAR [facility] Comment on above: Performed By: #### A CET, SALYC #### [facility] [address] [place] [address] Dr. Ibis Jimenez Color (U) YELLOW Normal YELLOW [facility] Comment on above: Performed By: #### A CET, SALYC #### [facility] [address] [place] [address] Dr. Ibis Jimenez ERUAHD A micrscopic examination will be performed if indicated. Normal [facility] Comment on above: Performed By: #### A CET, SALYC #### [facility] [address] [address] [address] Ibis Jimenez Glucose Ql (U) Negative Normal NEGATIVE [facility] Comment on above: Performed By: #### A CET, SALYC #### [facility] [address] [place] [address] Dr. Ibis Jimenez Hemoglobin Ql (U) SMALL Abnormal NEGATIVE [facility] Comment on above: Performed By: #### A CET, SALYC #### [facility] [address] [place] [address] Dr. Ibis Jimenez Ketones Ql (U) Negative Normal NEGATIVE [facility] Comment on above: Performed By: #### A CET, SALYC #### [facility] [address] [place] [address] Dr. Ibis Jimenez LEUKOCYTES Negative Normal NEGATIVE [facility] Comment on above: Performed By: #### A CET, SALYC #### [facility] [address] [place] [address] Dr. Ibis Jimenez Nitrite Ql (U) Negative Normal NEGATIVE [facility] Comment on above: Performed By: #### A CET, SALYC #### [facility] [address] [place] [address] Dr. Ibis Jimenez pH (U) 5.5 [pH] Normal 5-9 [facility] Comment on above: Performed By: #### A CET, SALYC #### [facility] [address] [place] [address] Dr. Ibis Jimenez SPEC GRAVITY >=1.030 Abnormal 1.005-<=1.02 5 [facility] Comment on above: Performed By: #### A CET, SALYC #### [facility] [address] [place] [address] Dr. Ibis Jimenez UA PROTEIN Negative Normal NEGATIVE/ TRACE [facility] Comment on above: Performed By: #### A CET, SALYC #### [facility] [address] [place] [address] Dr. Ibis Jimenez UR MICRO IND INDICATED Normal [facility] Comment on above: Performed By: #### A CET, SALYC #### [facility] [address] [place] [address] Dr. Ibis Jimenez Urobilinogen Qn (U) 0.2 {Dinorah'U}/dL Normal 0.2 - 1. 0 [facility] Comment on above: Performed By: #### A CET, SALYC #### [facility] [address] [place] [address] Dr. Ibis Jimenez INFLUENZA A AND B AGon 04-01 INFLUANEGH SEE BELOW Normal [facility] Comment on above: Result Comment: Nega tive for Flu A protein angiten. Infection due to Flu A cannot be ruled out. Flu A angiten in the sample may be below the detection limit of the test. Performed By: #### A MM #### [facility] [address] [place] [address] Dr. Ibis Jimenez INFLUBNEGH SEE BELOW Normal [facility] Comment on above: Result Comment: Nega tive for Flu B protein antigen. Infection due to Flu B cannot be ruled out. Flu B antigen in the sample may be below the detection limit of the test. Performed By: #### A MM #### [facility] [address] [place] [address] Dr. Ibis Jimenez INFLUENZA A AG Negative Normal NEGATIVE SEE COMMENT [facility] Comment on above: Performed By: #### A MM #### [facility] [address] [place] [address] Dr. Ibis Jimenez INFLUENZA B AG Negative Normal NEGATIVE SEE COMMENT [facility] Comment on above: Performed By: #### A MM #### [facility] [address] [place] [address] Dr. Ibis Jimenez LACTATE/LACTIC ACIDon 2022 Lactate [Moles/Vol] 1.9 mmol/L Normal 0.4-1.9 [facility] Comment on above: Performed By: #### L ACT #### [facility] [address] [place] [address] Dr. Ibis Jimenez URINE MICROSCOPIC ONLYon BACTERIA TRACE Abnormal NONE SEEN [facility] Comment on above: Performed By: #### A CET, SALYC #### [facility] [address] [place] [address] Dr. Ibis Jimenez Bacteria identified Cx Nom (U) NOT INDICATED Normal [facility] Comment on above: Performed By: #### A CET, SALYC #### [facility] [address] [place] [address] Dr. Ibis Jimenez CAST NONE SEEN Normal NONE SEEN [facility] Comment on above: Performed By: #### A CET, SALYC #### [facility] [address] [place] [address] Dr. Ibis Jimenez Crystals LM Nom (Urine sed) NONE SEEN Normal NONE SEEN [facility] Comment on above: Performed By: #### A CET, SALYC #### [facility] [address] [place] [address] Dr. Ibis Jimenez Epithelial cells LM Ql (Urine sed) RARE Normal NONE SEEN /RARE [facility] Comment on above: Performed By: #### A CET, SALYC #### [facility] [address] [place] [address] Dr. Ibis Jimenez MUCOUS TRACE Abnormal NONE SEEN [facility] Comment on above: Performed By: #### A CET, SALYC #### [facility] [address] [place] [address] Dr. Ibis Jimenez RBC 0-2 Normal 0-2 [facility] Comment on above: Performed By: #### A CET, SALYC #### [facility] [address] [place] [address] Dr. Ibis Jimenez WBC NONE SEEN Normal NONE SEEN [facility] Comment on above: Performed By: #### A CET, SALYC #### [facility] [address] [place] [address] Dr. Ibis Jimenez AMMONIAon 03-31-2022 Ammonia (P) [Moles/Vol] 31 umol/L Normal 11-32 [facility] Comment on above: Performed By: #### A MM #### [facility] [address] [place] [address] Dr. Ibis Jimenez CBC AUTO DIFFon 03-31-2022 BASO # 0.0 103/ul Normal 0.0-0.1 [facility] Comment on above: Performed By: #### A MM #### [facility] [address] [place] [address] Dr. Ibis Jimenez Basophils/100 WBC (Bld) 0.4 % Normal 0.2-2.0 [facility] Comment on above: Performed By: #### A MM #### [facility] [address] [place] [address] Dr. Ibis Jimenez EO # 0.5 103/ul Normal 0.0-0.7 [facility] Comment on above: Performed By: #### A MM #### [facility] [address] [place] [address] Dr. Ibis Jimenez Eosinophils/100 WBC (Bld) 6.4 % Normal 0.9-7.0 [facility] Comment on above: Performed By: #### A MM #### [facility] [address] [place] [address] Dr. Ibis Jimenez Erythrocyte distribution width (RBC) [Ratio] 12.8 % Normal 11.0-15.0 [facility] Comment on above: Performed By: #### A MM #### [facility] [address] [place] [address] Dr. Ibis Jimenez Hematocrit (Bld) [Volume fraction] 36.6 % Normal 36.0-48.0 [facility] Comment on above: Performed By: #### A MM #### [facility] [address] [place] [address] Dr. Ibis Jimenez Hemoglobin (Bld) [Mass/Vol] 12.5 g/dL Normal 12.0-16.0 [facility] Comment on above: Performed By: #### A MM #### [facility] [address] [place] [address] Dr. Ibis Jimenez IG # 0.02 10e3/ul Normal 0.00-0.03 [facility] Comment on above: Performed By: #### A MM #### [facility] [address] [place] [address] Dr. Ibis Jimenez IG % 0.3 % Normal 0.0-0.5 [facility] Comment on above: Performed By: #### A MM #### [facility] [address] [place] [address] Dr. Ibis Jimenez LYMPH # 2.0 103/ul Normal 1.2-3.8 [facility] Comment on above: Performed By: #### A MM #### [facility] [address] [place] [address] Dr. Ibis Jimenez Lymphocytes/100 WBC (Bld) 25.0 % Normal 20.5-60.0 [facility] Comment on above: Performed By: #### A MM #### [facility] [address] [place] [address] Dr. Ibis Jimenez MANUAL DIFF REQ NO Normal [facility] Comment on above: Performed By: #### A MM #### [facility] [address] [place] [address] Dr. Ibis Jimenez MCH (RBC) [Entitic mass] 29.5 pg Normal 26.7-34.0 [facility] Comment on above: Performed By: #### A MM #### [facility] [address] [place] [address] Dr. Ibis Jimenez MCHC (RBC) [Mass/Vol] 34.2 g/dL Normal 29.9-35.2 [facility] Comment on above: Performed By: #### A MM #### [facility] [address] [place] [address] Dr. Ibis Jimenez MCV (RBC) [Entitic vol] 86.3 fL Normal 81.0-99.0 [facility] Comment on above: Performed By: #### A MM #### [facility] [address] [place] [address] Dr. Ibis Jimenez MONO # 0.4 103/ul Normal 0.3-0.8 [facility] Comment on above: Performed By: #### A MM #### [facility] [address] [place] [address] Dr. Ibis Jimenez Monocytes/100 WBC (Bld) 5.6 % Normal 1.7-12.0 [facility] Comment on above: Performed By: #### A MM #### [facility] [address] [place] [address] Dr. Ibis Jimenez NEUT # 4.9 103/ul Normal 1.4-6.5 [facility] Comment on above: Performed By: #### A MM #### [facility] [address] [place] [address] Dr. Ibis Jimenez Neutrophils/100 WBC (Bld) 62.3 % Normal 43.0-75.0 [facility] Comment on above: Performed By: #### A MM #### [facility] [address] [place] [address] Dr. Ibis Jimenez Platelet mean volume (Bld) [Entitic vol] 9.5 fL Normal 9.5-13.5 [facility] Comment on above: Performed By: #### A MM #### [facility] [address] [place] [address] Dr. Ibis Jimenez PLT 246 103/ul Normal 150-450 [facility] Comment on above: Performed By: #### A MM #### [facility] [address] [place] [address] Dr. Ibis Jimenez RBC 4.24 106/ul Normal 4.20-5.40 [facility] Comment on above: Performed By: #### A MM #### [facility] [address] [place] [address] Dr. Ibis Jimenez WBC 7.8 103/ul Normal 4.0-11.0 [facility] Comment on above: Performed By: #### A MM #### [facility] [address] [place] [address] Dr. Ibis Jimenez CULTURE BLOODon 03-31-2022 Microscopic examination of blood, culture Culture Observations: NO GROWTH AT 5 DAYS. Normal [facility] Comment on above: Performed By: #### B LDCX2 #### [facility] [address] [place] [address] Dr. Ibis Jimenez Microscopic examination of blood, culture Culture Observations: NO GROWTH AT 5 DAYS. Normal [facility] Comment on above: Performed By: #### B MP #### [facility] [address] [place] [address] Dr. Ibis Jimenez LACTATE/LACTIC ACIDon 2022 Lactate [Moles/Vol] 2.8 mmol/L Critically high 0.4-1.9 [facility] Comment on above: Performed By: #### C VDTB #### [facility] [address] [place] [address] Dr. Ibis Jimenez PROF 14(COMP METB)on 023 Albumin [Mass/Vol] 3.4 g/dL Normal 3.4-5.0 [facility] Comment on above: Performed By: #### B MP #### [facility] [address] [place] [address] Dr. Ibis Jimenez Albumin/Globulin [Mass ratio] 1.2 {ratio} Normal [facility] Comment on above: Performed By: #### B MP #### [facility] [address] [place] [address] Dr. Ibis Jimenez ALP [Catalytic activity/Vol] 85 U/L Normal 46-116 [facility] Comment on above: Performed By: #### B MP #### [facility] [address] [place] [address] Dr. Ibis Jimenez ALT [Catalytic activity/Vol] 18 U/L Normal 14-59 [facility] Comment on above: Performed By: #### B MP #### [facility] [address] [place] [address] Dr. Ibis Jimenez Anion gap [Moles/Vol] 13.2 mmol/L Normal [facility] Comment on above: Performed By: #### B MP #### [facility] [address] [place] [address] Dr. Ibis Jimenez AST [Catalytic activity/Vol] 11 U/L Critically low 15-37 [facility] Comment on above: Performed By: #### B MP #### [facility] [address] [place] [address] Dr. Ibis Jimenez Bilirubin [Mass/Vol] 0.2 mg/dL Normal 0.2-1.0 [facility] Comment on above: Performed By: #### B MP #### [facility] [address] [address] [address] Ibis Jimenez Calcium [Mass/Vol] 8.6 mg/dL Normal 8.5-10.1 [facility] Comment on above: Performed By: #### B MP #### [facility] [address] [address] [address] Ibis Jimenez Chloride [Moles/Vol] 105 mmol/L Normal 98-107 [facility] Comment on above: Performed By: #### B MP #### [facility] [address] [address] [address] Ibis Jimenez CO2 [Moles/Vol] 25.1 mmol/L Normal 21.0-32.0 [facility] Comment on above: Performed By: #### B MP #### [facility] [address] [place] [address] Dr. Ibis Jimenez Creatinine [Mass/Vol] 0.80 mg/dL Normal 0.55-1.02 [facility] Comment on above: Performed By: #### B MP #### [facility] [address] [address] [address] Ibis Jimenez EGFR-AF SOUTH AFRICAN >60 Normal >=60 [facility] Comment on above: Performed By: #### B MP #### [facility] [address] [place] [address] Dr. Ibis Jimenez EGFR-NON AF SOUTH AFRICAN >60 Normal >=60 [facility] Comment on above: Performed By: #### B MP #### [facility] [address] [address] [address] Ibis Jimenez Globulin (S) [Mass/Vol] 2.9 g/dL Normal [facility] Comment on above: Performed By: #### B MP #### [facility] [address] [address] [address] Ibis Jimenez Glucose [Mass/Vol] 99 mg/dL Normal 74-106 [facility] Comment on above: Performed By: #### B MP #### [facility] [address] [place] [address] Dr. Ibis Jimenez Potassium [Moles/Vol] 3.3 mmol/L Critically low 3.5-5.1 [facility] Comment on above: Performed By: #### B MP #### [facility] [address] [place] [address] Dr. Ibis Jimenez Protein [Mass/Vol] 6.3 g/dL Critically low 6.4-8.2 [facility] Comment on above: Performed By: #### B MP #### [facility] [address] [place] [address] Dr. Ibis Jimenez Sodium [Moles/Vol] 140 mmol/L Normal 136-145 [facility] Comment on above: Performed By: #### B MP #### [facility] [address] [place] [address] Dr. Ibis Jimenez Urea nitrogen [Mass/Vol] 10.0 mg/dL Normal 7.0-18.0 [facility] Comment on above: Performed By: #### B MP #### [facility] [address] [place] [address] Dr. Ibis Jimenez Urea nitrogen/Creatinine [Mass ratio] 12.5 mg/mg Normal [facility] Comment on above: Performed By: #### B MP #### [facility] [address] [place] [address] Dr. Ibis Jimenez CBC AUTO DIFFon 01-14-2022 BASO # 0.0 103/ul Normal 0.0-0.1 [facility] Comment on above: Performed By: #### A MM #### [facility] [address] [place] [address] Dr. Ibis Jimenez Basophils/100 WBC (Bld) 0.3 % Normal 0.2-2.0 [facility] Comment on above: Performed By: #### A MM #### [facility] [address] [place] [address] Dr. Ibis Jimenez EO # 0.2 103/ul Normal 0.0-0.7 [facility] Comment on above: Performed By: #### A MM #### [facility] [address] [place] [address] Dr. Ibis Jimenez Eosinophils/100 WBC (Bld) 2.7 % Normal 0.9-7.0 [facility] Comment on above: Performed By: #### A MM #### [facility] [address] [place] [address] Dr. Ibis Jimenez Erythrocyte distribution width (RBC) [Ratio] 13.2 % Normal 11.0-15.0 [facility] Comment on above: Performed By: #### A MM #### [facility] [address] [place] [address] Dr. Ibis Jimenez Hematocrit (Bld) [Volume fraction] 35.7 % Critically low 36.0-48.0 [facility] Comment on above: Performed By: #### A MM #### [facility] [address] [place] [address] Dr. Ibis Jimenez Hemoglobin (Bld) [Mass/Vol] 12.2 g/dL Normal 12.0-16.0 [facility] Comment on above: Performed By: #### A MM #### [facility] [address] [place] [address] Dr. Ibis Jimenez IG # 0.04 10e3/ul Critically high 0.00-0.03 [facility] Comment on above: Performed By: #### A MM #### [facility] [address] [place] [address] Dr. Ibis Jimenez IG % 0.5 % Normal 0.0-0.5 [facility] Comment on above: Performed By: #### A MM #### [facility] [address] [place] [address] Dr. Ibis Jimenez LYMPH # 2.1 103/ul Normal 1.2-3.8 [facility] Comment on above: Performed By: #### A MM #### [facility] [address] [place] [address] Dr. Ibis Jimenez Lymphocytes/100 WBC (Bld) 27.3 % Normal 20.5-60.0 [facility] Comment on above: Performed By: #### A MM #### [facility] [address] [place] [address] Dr. Ibis Jimenez MANUAL DIFF REQ NO Normal [facility] Comment on above: Performed By: #### A MM #### [facility] [address] [place] [address] Dr. Ibis Jimenez MCH (RBC) [Entitic mass] 29.0 pg Normal 26.7-34.0 [facility] Comment on above: Performed By: #### A MM #### [facility] [address] [place] [address] Dr. Ibis Jimenez MCHC (RBC) [Mass/Vol] 34.2 g/dL Normal 29.9-35.2 [facility] Comment on above: Performed By: #### A MM #### [facility] [address] [place] [address] Dr. Ibis Jimenez MCV (RBC) [Entitic vol] 84.8 fL Normal 81.0-99.0 [facility] Comment on above: Performed By: #### A MM #### [facility] [address] [place] [address] Dr. Ibis Jimenez MONO # 0.7 103/ul Normal 0.3-0.8 [facility] Comment on above: Performed By: #### A MM #### [facility] [address] [place] [address] Dr. Ibis Jimenez Monocytes/100 WBC (Bld) 8.7 % Normal 1.7-12.0 [facility] Comment on above: Performed By: #### A MM #### [facility] [address] [place] [address] Dr. Ibis Jimenez NEUT # 4.7 103/ul Normal 1.4-6.5 [facility] Comment on above: Performed By: #### A MM #### [facility] [address] [place] [address] Dr. Ibis Jimenez Neutrophils/100 WBC (Bld) 60.5 % Normal 43.0-75.0 [facility] Comment on above: Performed By: #### A MM #### [facility] [address] [place] [address] Dr. Ibis Jimenez Platelet mean volume (Bld) [Entitic vol] 9.6 fL Normal 9.5-13.5 [facility] Comment on above: Performed By: #### A MM #### [facility] [address] [place] [address] Dr. Ibis Jimenez PLT 212 103/ul Normal 150-450 [facility] Comment on above: Performed By: #### A MM #### [facility] [address] [place] [address] Dr. Ibis Jimenez RBC 4.21 106/ul Normal 4.20-5.40 [facility] Comment on above: Performed By: #### A MM #### [facility] [address] [place] [address] Dr. Ibis Jimenez WBC 7.7 103/ul Normal 4.0-11.0 [facility] Comment on above: Performed By: #### A MM #### [facility] [address] [place] [address] ABD/PELV W CONon [...] TONY DAHL Date: 2022-01-14 20:01 Normal [facility] ER URINE PROFILEon 2 Bilirubin Ql (U) Negative Normal NEGATIVE The [facility] Comment on above: Performed By: #### A CET, SALYC #### [facility] [address] [place] [address] Dr. Ibis Jimenez Clarity (U) CLEAR Normal CLEAR [facility] Comment on above: Performed By: #### A CET, SALYC #### [facility] [address] [place] [address] Dr. Ibis Jimenez Color (U) LT. YELLOW Normal YELLOW [facility] Comment on above: Performed By: #### A CET, SALYC #### [facility] [address] [place] [address] Dr. Ibis RODRIGUEZ A micrscopic examination will be performed if indicated. Normal [facility] Comment on above: Performed By: #### A CET, SALYC #### [facility] [address] [address] [address] Ibis Jimenez Glucose Ql (U) Negative Normal NEGATIVE [facility] Comment on above: Performed By: #### A CET, SALYC #### [facility] [address] [address] [address] Ibis Jimenez Hemoglobin Ql (U) Negative Normal NEGATIVE The [facility] Comment on above: Performed By: #### A CET, SALYC #### [facility] [address] [place] [address] Dr. Ibis Jimenez Ketones Ql (U) Negative Normal NEGATIVE [facility] Comment on above: Performed By: #### A CET, SALYC #### [facility] [address] [place] [address] Dr. Ibis Jimenez LEUKOCYTES TRACE Abnormal NEGATIVE [facility] Comment on above: Performed By: #### A CET, SALYC #### [facility] [address] [place] [address] Dr. Ibis Jimenez Nitrite Ql (U) Negative Normal NEGATIVE [facility] Comment on above: Performed By: #### A CET, SALYC #### [facility] [address] [place] [address] Dr. Ibis Jimenez pH (U) 5.5 [pH] Normal 5-9 [facility] Comment on above: Performed By: #### A CET, SALYC #### [facility] [address] [place] [address] Dr. Ibis Jimenez SPEC GRAVITY 1.025 Normal 1.005-<=1.[address] [place] [address] Comment on above: Performed By: #### A CET, SALYC #### [facility] [address] [place] [address] Dr. Ibis Jimenez UA PROTEIN Negative Normal NEGATIVE/ TRACE [facility] Comment on above: Performed By: #### A CET, SALYC #### [facility] [address] [place] [address] Dr. Ibis Jimenez UR MICRO IND INDICATED Normal [facility] Comment on above: Performed By: #### A CET, SALYC #### [facility] [address] [place] [address] Dr. Ibis Jimenez Urobilinogen Qn (U) 0.2 {Dinorah'U}/dL Normal 0.2 - 1. 0 [facility] Comment on above: Performed By: #### A CET, SALYC #### [facility] [address] [place] [address] Dr. Ibis Jimenez URon 01-14-2022 , QUAL Negative Normal NEGATIVE [facility] Comment on above: Performed By: #### A CET, SALYC #### [facility] [address] [place] [address] Dr. Ibis Jimenez PROF CHEM 8 (BAS METB)on Anion gap [Moles/Vol] 9.9 mmol/L Normal [facility] Comment on above: Performed By: #### B MP #### [facility] [address] [place] [address] Dr. Ibis Jimenez Calcium [Mass/Vol] 8.6 mg/dL Normal 8.5-10.1 [facility] Comment on above: Performed By: #### B MP #### [facility] [address] [address] [address] Ibis Jimenez Chloride [Moles/Vol] 105 mmol/L Normal 98-107 [facility] Comment on above: Performed By: #### B MP #### [facility] [address] [place] [address] Dr. Ibis Jimenez CO2 [Moles/Vol] 27.5 mmol/L Normal 21.0-32.0 [facility] Comment on above: Performed By: #### B MP #### [facility] [address] [place] [address] Dr. Ibsi Jimenez Creatinine [Mass/Vol] 0.70 mg/dL Normal 0.55-1.02 [facility] Comment on above: Performed By: #### B MP #### [facility] [address] [place] [address] Dr. Ibis Jimenez EGFR-AF SOUTH AFR[place] >60 Normal >=60 [facility] Comment on above: Performed By: #### B MP #### [facility] [address] [address] [address] Ibis Jimenez EGFR-NON AF SOU[place] AFR[place] >60 Normal >=60 [facility] Comment on above: Performed By: #### B MP #### [facility] [address] [address] [address] Ibis Jimenez Glucose [Mass/Vol] 83 mg/dL Normal 74-106 [facility] Comment on above: Performed By: #### B MP #### [facility] [address] [address] [address] Ibis Jimenez Potassium [Moles/Vol] 4.4 mmol/L Normal 3.5-5.1 [facility] Comment on above: Performed By: #### B MP #### [facility] [address] [place] [address] Dr. Ibis Jimenez Sodium [Moles/Vol] 138 mmol/L Normal 136-145 [facility] Comment on above: Performed By: #### B MP #### [facility] [address] [place] [address] Dr. Ibis Jimenez Urea nitrogen [Mass/Vol] 13.0 mg/dL Normal 7.0-18.0 [facility] Comment on above: Performed By: #### B MP #### [facility] [address] [place] [address] Dr. Ibis Jimenez Urea nitrogen/Creatinine [Mass ratio] 18.6 mg/mg Normal [facility] Comment on above: Performed By: #### B MP #### [facility] [address] [place] [address] Dr. Ibis Jimenez URINE MICROSCOPIC ONLYon BACTERIA NONE SEEN Normal NONE SEEN [facility] Comment on above: Performed By: #### A CET, SALYC #### [facility] [address] [place] [address] Dr. Ibis Jimenez Bacteria identified Cx Nom (U) NOT INDICATED Normal [facility] Comment on above: Performed By: #### A CET, SALYC #### [facility] [address] [place] [address] Dr. Ibis Jimenez CAST NONE SEEN Normal NONE SEEN [facility] Comment on above: Performed By: #### A CET, SALYC #### [facility] [address] [place] [address] Dr. Ibis Jimenez Crystals LM Nom (Urine sed) NONE SEEN Normal NONE SEEN [facility] Comment on above: Performed By: #### A CET, SALYC #### [facility] [address] [place] [address] Dr. Ibis Jimenez Epithelial cells LM Ql (Urine sed) FEW Abnormal NONE SEEN /RARE [facility] Comment on above: Performed By: #### A CET, SALYC #### [facility] [address] [place] [address] Dr. Ibis Jimenez MUCOUS NONE SEEN Normal NONE SEEN [facility] Comment on above: Performed By: #### A CET, SALYC #### [facility] [address] [place] [address] Dr. Ibis Jimenez RBC NONE SEEN Abnormal 0-2 [facility] Comment on above: Performed By: #### A CET, SALYC #### [facility] [address] [place] [address] Dr. Ibis Jimenez WBC NONE SEEN Normal NONE SEEN [facility] Comment on above: Performed By: #### A CET, SALYC #### [facility] [address] [place] [address] Dr. Ibis Jimenez CBC AUTO DIFFon 01-07-2022 BASO # 0.0 103/ul Normal 0.0-0.1 [facility] Comment on above: Performed By: #### A CET, SALYC #### [facility] [address] [place] [address] Dr. Ibis Jimenez Basophils/100 WBC (Bld) 0.2 % Normal 0.2-2.0 [facility] Comment on above: Performed By: #### A CET, SALYC #### [facility] [address] [place] [address] Dr. Ibis Jimenez EO # 0.0 103/ul Normal 0.0-0.7 [facility] Comment on above: Performed By: #### A CET, SALYC #### [facility] [address] [place] [address] Dr. Ibis Jimenez Eosinophils/100 WBC (Bld) 0.4 % Critically low 0.9-7.0 [facility] Comment on above: Performed By: #### A CET, SALYC #### [facility] [address] [place] [address] Dr. Ibis Jimenez Erythrocyte distribution width (RBC) [Ratio] 13.2 % Normal 11.0-15.0 [facility] Comment on above: Performed By: #### A CET, SALYC #### [facility] [address] [place] [address] Dr. Ibis Jimenez Hematocrit (Bld) [Volume fraction] 39.7 % Normal 36.0-48.0 [facility] Comment on above: Performed By: #### A CET, SALYC #### [facility] [address] [place] [address] Dr. Ibis Jimenez Hemoglobin (Bld) [Mass/Vol] 13.4 g/dL Normal 12.0-16.0 [facility] Comment on above: Performed By: #### A CET, SALYC #### [facility] [address] [place] [address] Dr. Ibis Jimenez IG # 0.06 10e3/ul Critically high 0.00-0.03 [facility] Comment on above: Performed By: #### A CET, SALYC #### [facility] [address] [place] [address] Dr. Ibis Jimenez IG % 0.5 % Normal 0.0-0.5 [facility] Comment on above: Performed By: #### A CET, SALYC #### [facility] [address] [place] [address] Dr. Ibis Jimenez LYMPH # 2.6 103/ul Normal 1.2-3.8 [facility] Comment on above: Performed By: #### A CET, SALYC #### [facility] [address] [place] [address] Dr. Ibis Jimenez Lymphocytes/100 WBC (Bld) 23.8 % Normal 20.5-60.0 [facility] Comment on above: Performed By: #### A CET, SALYC #### [facility] [address] [place] [address] Dr. Ibis Jimenez MANUAL DIFF REQ NO Normal [facility] Comment on above: Performed By: #### A CET, SALYC #### [facility] [address] [place] [address] Dr. Ibis Jimenez MCH (RBC) [Entitic mass] 28.8 pg Normal 26.7-34.0 [facility] Comment on above: Performed By: #### A CET, SALYC #### [facility] [address] [address] [address] Ibis Jimenez MCHC (RBC) [Mass/Vol] 33.8 g/dL Normal 29.9-35.2 [facility] Comment on above: Performed By: #### A CET, SALYC #### [facility] [address] [address] [address] Ibis Jimenez MCV (RBC) [Entitic vol] 85.2 fL Normal 81.0-99.0 [facility] Comment on above: Performed By: #### A CET, SALYC #### [facility] [address] [address] [address] Ibis Jimenez MONO # 0.8 103/ul Normal 0.3-0.8 [facility] Comment on above: Performed By: #### A CET, SALYC #### [facility] [address] [place] [address] Dr. Ibis Jimenez Monocytes/100 WBC (Bld) 7.7 % Normal 1.7-12.0 [facility] Comment on above: Performed By: #### A CET, SALYC #### [facility] [address] [address] [address] Ibis Jimenez NEUT # 7.4 103/ul Critically high 1.4-6.5 [facility] Comment on above: Performed By: #### A CET, SALYC #### [facility] [address] [address] [address] Ibis Jimenez Neutrophils/100 WBC (Bld) 67.4 % Normal 43.0-75.0 [facility] Comment on above: Performed By: #### A CET, SALYC #### [facility] [address] [address] [address] Ibis Jimenez Platelet mean volume (Bld) [Entitic vol] 9.8 fL Normal 9.5-13.5 [facility] Comment on above: Performed By: #### A CET, SALYC #### [facility] [address] [address] [address] Ibis Jimenez PLT 261 103/ul Normal 150-450 [facility] Comment on above: Performed By: #### A CET, SALYC #### [facility] [address] [address] [address] Ibis Jimenze RBC 4.66 106/ul Normal 4.20-5.40 [facility] Comment on above: Performed By: #### A CET, SALYC #### [facility] [address] [address] [address] Ibis Jimenez WBC 10.9 103/ul Normal 4.0-11.0 [facility] Comment on above: Performed By: #### A CET, SALYC #### [facility] [address] [address] [address] Ibis Jimenez PROF CHEM 8 (BAS METB)on Anion gap [Moles/Vol] 14.1 mmol/L Normal [facility] Comment on above: Performed By: #### B MP #### [facility] [address] [place] [address] Dr. Ibis Jimenez Calcium [Mass/Vol] 8.5 mg/dL Normal 8.5-10.1 [facility] Comment on above: Performed By: #### B MP #### [facility] [address] [place] [address] Dr. Ibis Jimenez Chloride [Moles/Vol] 103 mmol/L Normal 98-107 [facility] Comment on above: Performed By: #### B MP #### [facility] [address] [place] [address] Dr. Ibis Jimenez CO2 [Moles/Vol] 22.5 mmol/L Normal 21.0-32.0 [facility] Comment on above: Performed By: #### B MP #### [facility] [address] [place] [address] Dr. Ibis Jimenez Creatinine [Mass/Vol] 0.64 mg/dL Normal 0.55-1.02 [facility] Comment on above: Performed By: #### B MP #### [facility] [address] [place] [address] Dr. Ibis Jimenez EGFR-AF SOUTH AFR[place] >60 Normal >=60 [facility] Comment on above: Performed By: #### B MP #### [facility] [address] [address] [address] Ibis Jimenez EGFR-NON AF S[place] >60 Normal >=60 [facility] Comment on above: Performed By: #### B MP #### [facility] [address] [address] [address] Ibis Jimenez Glucose [Mass/Vol] 141 mg/dL Critically high 74-106 [facility] Comment on above: Performed By: #### B MP #### [facility] [address] [address] [address] Ibis Jimenez Potassium [Moles/Vol] 3.6 mmol/L Normal 3.5-5.1 [facility] Comment on above: Performed By: #### B MP #### [facility] [address] [place] [address] Dr. Ibis Jimenez Sodium [Moles/Vol] 136 mmol/L Normal 136-145 [facility] Comment on above: Performed By: #### B MP #### [facility] [address] [place] [address] Dr. Ibis Jimenez Urea nitrogen [Mass/Vol] 16.0 mg/dL Normal 7.0-18.0 [facility] Comment on above: Performed By: #### B MP #### [facility] [address] [place] [address] Dr. Ibis Jimenez Urea nitrogen/Creatinine [Mass ratio] 25.0 mg/mg Normal [facility] Comment on above: Performed By: #### B MP #### [facility] [address] [place] [address] Dr. Ibis Jimenez CBC AUTO DIFFon 11-04-2021 BASO # 0.0 103/ul Normal 0.0-0.1 [facility] Comment on above: Performed By: #### A CET, SALYC #### [facility] [address] [place] [address] Dr. Ibis Jimenez Basophils/100 WBC (Bld) 0.4 % Normal 0.2-2.0 [facility] Comment on above: Performed By: #### A CET, SALYC #### [facility] [address] [place] [address] Dr. Ibis Jimenez EO # 0.2 103/ul Normal 0.0-0.7 [facility] Comment on above: Performed By: #### A CET, SALYC #### [facility] [address] [place] [address] Dr. Ibis Jimenez Eosinophils/100 WBC (Bld) 4.1 % Normal 0.9-7.0 [facility] Comment on above: Performed By: #### A CET, SALYC #### [facility] [address] [place] [address] Dr. Ibis Jimenez Erythrocyte distribution width (RBC) [Ratio] 13.2 % Normal 11.0-15.0 [facility] Comment on above: Performed By: #### A CET, SALYC #### [facility] [address] [place] [address] Dr. Ibis Jimenez Hematocrit (Bld) [Volume fraction] 34.3 % Critically low 36.0-48.0 [facility] Comment on above: Performed By: #### A CET, SALYC #### [facility] [address] [place] [address] Dr. Ibis Jimenez Hemoglobin (Bld) [Mass/Vol] 11.5 g/dL Critically low 12.0-16.0 [facility] Comment on above: Performed By: #### A CET, SALYC #### [facility] [address] [place] [address] Dr. Ibis Jimenez IG # 0.01 10e3/ul Normal 0.00-0.03 [facility] Comment on above: Performed By: #### A CET, SALYC #### [facility] [address] [place] [address] Dr. Ibis Jimenez IG % 0.2 % Normal 0.0-0.5 [facility] Comment on above: Performed By: #### A CET, SALYC #### [facility] [address] [place] [address] Dr. Ibis Jimenez LYMPH # 1.5 103/ul Normal 1.2-3.8 [facility] Comment on above: Performed By: #### A CET, SALYC #### [facility] [address] [place] [address] Dr. Ibis Jimenez Lymphocytes/100 WBC (Bld) 26.4 % Normal 20.5-60.0 [facility] Comment on above: Performed By: #### A CET, SALYC #### [facility] [address] [place] [address] Dr. Ibis Jimenez MANUAL DIFF REQ NO Normal [facility] Comment on above: Performed By: #### A CET, SALYC #### [facility] [address] [place] [address] Dr. Ibis Jimenez MCH (RBC) [Entitic mass] 28.8 pg Normal 26.7-34.0 [facility] Comment on above: Performed By: #### A CET, SALYC #### [facility] [address] [place] [address] Dr. Ibis Jimenez MCHC (RBC) [Mass/Vol] 33.5 g/dL Normal 29.9-35.2 [facility] Comment on above: Performed By: #### A CET, SALYC #### [facility] [address] [place] [address] Dr. Ibis Jimenez MCV (RBC) [Entitic vol] 86.0 fL Normal 81.0-99.0 [facility] Comment on above: Performed By: #### A CET, SALYC #### [facility] [address] [place] [address] Dr. Ibis Jimenez MONO # 0.5 103/ul Normal 0.3-0.8 [facility] Comment on above: Performed By: #### A CET, SALYC #### [facility] [address] [place] [address] Dr. Ibis Jimenez Monocytes/100 WBC (Bld) 8.2 % Normal 1.7-12.0 [facility] Comment on above: Performed By: #### A CET, SALYC #### [facility] [address] [place], [place] [id number] Dr. Ibis Jimenez NEUT # 3.4 103/ul Normal 1.4-6.5 [facility] Comment on above: Performed By: #### A CET, SALYC #### [facility] [address] [place] [address] Dr. Ibis Jimenez Neutrophils/100 WBC (Bld) 60.7 % Normal 43.0-75.0 [facility] Comment on above: Performed By: #### A CET, SALYC #### [facility] [address] [place] [address] Dr. Ibis Jimenez Platelet mean volume (Bld) [Entitic vol] 9.9 fL Normal 9.5-13.5 [facility] Comment on above: Performed By: #### A CET, SALYC #### [facility] [address] [place] [address] Dr. Ibis Jimenez PLT 222 103/ul Normal 150-450 [facility] Comment on above: Performed By: #### A CET, SALYC #### [facility] [address] [place] [address] Dr. Ibis Jimenez RBC 3.99 106/ul Critically low 4.20-5.40 [facility] Comment on above: Performed By: #### A CET, SALYC #### [facility] [address] [place] [address] Dr. Ibis Jimenez WBC 5.6 103/ul Normal 4.0-11.0 [facility] Comment on above: Performed By: #### A CET, SALYC #### [facility] [address] [place] [address] Dr. Ibis Jimenez PROF CHEM 8 (BAS METB)on Anion gap [Moles/Vol] 10.5 mmol/L Normal [facility] Comment on above: Performed By: #### B MP #### [facility] [address] [place] [address] Dr. Ibis Jimenez Calcium [Mass/Vol] 8.8 mg/dL Normal 8.5-10.1 [facility] Comment on above: Performed By: #### B MP #### [facility] [address] [address] [address] Ibis Jimenez Chloride [Moles/Vol] 105 mmol/L Normal 98-107 [facility] Comment on above: Performed By: #### B MP #### [facility] [address] [address] [address] Ibis Jimenez CO2 [Moles/Vol] 24.9 mmol/L Normal 21.0-32.0 [facility] Comment on above: Performed By: #### B MP #### [facility] [address] [address] [address] Ibis Jimenez Creatinine [Mass/Vol] 0.71 mg/dL Normal 0.55-1.02 [facility] Comment on above: Performed By: #### B MP #### [facility] [address] [place] [address] Dr. Ibis Jimenez EGFR-AF SOUTH AFRICAN >60 Normal >=60 [facility] Comment on above: Performed By: #### B MP #### [facility] [address] [address] [address] Ibis Jimenez EGFR-NON AF SOUTH AFR[place] >60 Normal >=60 [facility] Comment on above: Performed By: #### B MP #### [facility] [address] [place] [address] Dr. Ibis Jimenez Glucose [Mass/Vol] 103 mg/dL Normal 74-106 [facility] Comment on above: Performed By: #### B MP #### [facility] [address] [address] [address] Ibis Jimenez Potassium [Moles/Vol] 3.4 mmol/L Critically low 3.5-5.1 [facility] Comment on above: Performed By: #### B MP #### [facility] [address] [place] [address] Dr. Ibis Jimenez Sodium [Moles/Vol] 137 mmol/L Normal 136-145 [facility] Comment on above: Performed By: #### B MP #### [facility] [address] [place] [address] Dr. Ibis Jimenez Urea nitrogen [Mass/Vol] 17.0 mg/dL Normal 7.0-18.0 [facility] Comment on above: Performed By: #### B MP #### [facility] [address] [place] [address] [address] [address] Ibis Jimenez Urea nitrogen/Creatinine [Mass ratio] 23.9 mg/mg Normal [facility] Comment on above: Performed By: #### B MP #### [facility] [address] [address] [address] Ibis Jimenez Basic Metab w/rfx MGon 10-20 (cont.) Normal [facility] Comment on above: Result Comment: Aver age GFR for 20-29 years old: 116 mL/min/1.73sq m Chronic Kidney Disease: <60 mL/min/1.73sq m Kidney failure: <15 mL/min/1.73sq m eGFR calculated using average adult body mass. Additional eGFR calculator available at: http://www.Kranem/multiple_crcl_2011.htm Performed By: #### B MPX #### [facility] [address] [place] [address] Motor Vehicle Examiner: Tavon Nicole MD Anion gap [Moles/Vol] 10 mmol/L Normal 9-17 [facility] Comment on above: Performed By: #### B MPX #### [facility] [address] [place] [address] Motor Vehicle Examiner: Tavon Nicole MD Calcium [Mass/Vol] 7.8 mg/dL Low 8.6-10.4 [facility] Comment on above: Performed By: #### B MPX #### [facility] [address] [place] [address] Motor Vehicle Examiner: Tavon Nicole MD Chloride [Moles/Vol] 109 mmol/L High 98-107 [facility] Comment on above: Performed By: #### B MPX #### [facility] [address] [place] [address] Motor Vehicle Examiner: Tavon Nicole MD CO2 [Moles/Vol] 20 mmol/L Normal 20-31 [facility] Comment on above: Performed By: #### B MPX #### [address] [address] Motor Vehicle Examiner: Tavon Nicole MD Creatinine [Mass/Vol] 0.45 mg/dL Low 0.50-0.90 [facility] Comment on above: Performed By: #### B MPX #### [address] [address] Motor Vehicle Examiner: Tavon Nicole MD GFR, Amer >60 Normal >60 [facility] Comment on above: Performed By: #### B MPX #### [address] [address] Motor Vehicle Examiner: Tavon Nicole MD GFR,non Amer >60 Normal >60 [facility] Comment on above: Performed By: #### B MPX #### [address] [address] Motor Vehicle Examiner: Tavon Nicole MD Glucose [Mass/Vol] 84 mg/dL Normal 70-99 [facility] Comment on above: Performed By: #### B MPX #### [address] [address] Motor Vehicle Examiner: Tavon Nicole MD Potassium [Moles/Vol] 4.1 mmol/L Normal 3.7-5.3 [facility] Comment on above: Result Comment: SPEC IMEN SLIGHTLY HEMOLYZED, RESULTS MAY BE ADVERSELY AFFECTED. Performed By: #### B MPX #### [address] [address] Motor Vehicle Examiner: Tavon Nicole MD Sodium [Moles/Vol] 139 mmol/L Normal 135-144 [facility] Comment on above: Performed By: #### B MPX #### [facility] [address] [place], [place] [id number] Motor Vehicle Examiner: Tavon Nicole MD Urea nitrogen [Mass/Vol] 8 mg/dL Normal 6-20 [facility] Comment on above: Performed By: #### B MPX #### [facility] [address] [place], [place] [id number] Motor Vehicle Examiner: Tavon Nicole MD Basic Metabolic Panel w/ Ref rossi to MGon 10-20-2021 Anion gap [Moles/Vol] 10 mmol/L 9 - 17 mmol/L [facility] Calcium [Mass/Vol] 7.8 mg/dL Low 8.6 - 10. 4 mg/dL [facility] Chloride [Moles/Vol] 109 mmol/L High 98 - 10 7 mmol/L [facility] CO2 [Moles/Vol] 20 mmol/L 20 - 31 mmol/L [facility] Creatinine [Mass/Vol] 0.45 mg/dL Low 0.5 - 0.9 mg/dL [facility] GFR >60 60 - PI NF mL/min [employer] [facility] GFR Non- >60 60 - PINF mL/min [facility] GFR/1.73 sq M.predicted MDRD (S/P/Bld) [Vol rate/Area] [facility] [email or web address] [facility] Comment on above: Average GFR for 20-2 9 years old: 116 mL/min/1.73sq m Chronic Kidney Disease: <60 mL/min/1.73sq m Kidney failure: <15 mL/min/1.73sq m eGFR calculated using average adult body mass. Additional eGFR calculator available at: http://www.[employer].Cardback/multiple_crcl_2011.htm Glucose [Mass/Vol] 84 mg/dL 70 - 99 mg/dL [facility] Interpretation and review of laboratory results Abnormal [facility] Potassium [Moles/Vol] 4.1 mmol/L 3.7 - 5.3 mmol/L [facility] Comment on above: SPECIMEN SLIGHTLY HE MOLYZED, RESULTS MAY BE ADVERSELY AFFECTED. Sodium [Moles/Vol] 139 mmol/L 135 - 144 mmol/L [facility] Urea nitrogen (BldV) [Mass/Vol] 8 mg/dL 6 - 20 mg/dL [facility] CBC with Auto Differentialon 10-20-2021 Absolute Eos # 0.15 [facility] Absolute Immature Granulocyte [facility] Absolute Lymph # 1.48 [facility] SECO URS [facility] Absolute [place] # 0.28 [facility] Basophils (Bld) [#/Vol] 0.03 10*3/uL [facility] Basophils/100 WBC (Bld) 1 % 0 - 2 % [facility] Eosinophils/100 WBC (Bld) 3 % 1 - 4 % [facility] Hematocrit (Bld) [Volume fraction] 35.5 % Low 36.3 - 47.1 % [facility] Hemoglobin (Bld) [Mass/Vol] 11.3 g/dL Low 11.9 - 15.1 g/dL [facility] Immature granulocytes/100 WBC (Bld) 0 % 0 [facility] Interpretation and review of laboratory results Abnormal [facility] Lymphocytes/100 WBC (Bld) 34 % 24 - 43 % [facility] MCH (RBC) [Entitic mass] 27.9 pg 25.2 - 33.5 pg [facility] MCHC (RBC) [Mass/Vol] 31.8 g/dL 28.4 - 34.8 g/dL [facility] MCV (RBC) [Entitic vol] 87.7 fL 82.6 - 102.9 fL [facility] Monocytes/100 WBC (Bld) 6 % 3 - 12 % [facility] NRBC Automated 0.0 0.0 per 100 WBC [facility] Platelet distribution width (Bld) [Ratio] 12.9 % 11.8 - 14.4 % [facility] Platelets (Bld) [#/Vol] See Reflexed IPF Result [facility] RBC (Bld) [#/Vol] 4.05 10*6/uL 3.95 - 5.1 1 m/uL [facility] Segmented neutrophils/100 WBC (Bld) 55 % 36 - 65 % [facility] Segs Absolute 2.42 [facility] WBC (Bld) [#/Vol] 4.4 10*3/uL [facility] CBC with Diffon 10-20-2021 Abs. Basophil 0.03 k/uL Normal 0.00-0.20 [facility] Comment on above: Performed By: #### C DP, IPF #### [facility] [address] [place] [address] Motor Vehicle Examiner: Tavon Nicole MD Abs.Imm.Granulocyte <0.03 Normal 0.00-0.30 [facility] Comment on above: Performed By: #### C DP, IPF #### [facility] [address] [place] [address] Motor Vehicle Examiner: Tavon Nicole MD Abs.Neutrophil (Seg) 2.42 k/uL Normal 1.50-8.10 [facility] Comment on above: Performed By: #### C DP, IPF #### [address] [address] Motor Vehicle Examiner: Tavon Nicole MD Basophils/100 WBC (Bld) 1 % Normal 0-2 [facility] Comment on above: Performed By: #### C DP, IPF #### [facility] [address] [place] [address] Motor Vehicle Examiner: Tavon Nicole MD Eosinophils (Bld) [#/Vol] 0.15 10*3/uL Normal 0.00-0.44 [facility] Comment on above: Performed By: #### C DP, IPF #### [facility] [address] [place] [address] Motor Vehicle Examiner: Tavon Nicole MD Eosinophils/100 WBC (Bld) 3 % Normal 1-4 [facility] Comment on above: Performed By: #### C DP, IPF #### [address] [address] Motor Vehicle Examiner: Tavon Nicole MD Immature granulocytes/100 WBC (Bld) 0 % Normal 0 [facility] Comment on above: Performed By: #### C DP, IPF #### [address] [address] Motor Vehicle Examiner: Tavon Nicole MD Lymphocytes (Bld) [#/Vol] 1.48 10*3/uL Normal 1.10-3.70 [facility] Comment on above: Performed By: #### C DP, IPF #### [address] [address] Motor Vehicle Examiner: Tavon Nicole MD Lymphocytes/100 WBC (Bld) 34 % Normal 24-43 [facility] Comment on above: Performed By: #### C DP, IPF #### [address] [address] Motor Vehicle Examiner: Tavon Nicole MD Monocytes (Bld) [#/Vol] 0.28 10*3/uL Normal 0.10-1.20 [facility] Comment on above: Performed By: #### C DP, IPF #### [address] [address] Motor Vehicle Examiner: Tavon Nicole MD Monocytes/100 WBC (Bld) 6 % Normal 3-12 [facility] Comment on above: Performed By: #### C DP, IPF #### [address] [address] Motor Vehicle Examiner: Tavon Nicole MD Neutrophil (Seg) 55 % Normal 36-65 [facility] Comment on above: Performed By: #### C DP, IPF #### [address] [address] Motor Vehicle Examiner: Tavon Nicole MD Erythrocyte distribution width (RBC) [Ratio] 12.9 % Normal 11.8-14.4 [facility] Comment on above: Performed By: #### C DP, IPF #### [address] [address] Motor Vehicle Examiner: Tavon Nicole MD Hematocrit (Bld) [Volume fraction] 35.5 % Low 36.3-47.1 [facility] Comment on above: Performed By: #### C DP, IPF #### [address] [address] Motor Vehicle Examiner: Tavon Nicole MD Hemoglobin (Bld) [Mass/Vol] 11.3 g/dL Low 11.9-15.1 [facility] Comment on above: Performed By: #### C DP, IPF #### [address] [address] Motor Vehicle Examiner: Tavon Nicole MD MCH (RBC) [Entitic mass] 27.9 pg Normal 25.2-33.5 [facility] Comment on above: Performed By: #### C DP, IPF #### [address] [address] Motor Vehicle Examiner: Tavon Nicole MD MCHC (RBC) [Mass/Vol] 31.8 g/dL Normal 28.4-34.8 [facility] Comment on above: Performed By: #### C DP, IPF #### [address] [address] Motor Vehicle Examiner: Tavon Nicole MD MCV (RBC) [Entitic vol] 87.7 fL Normal 82.6-102.9 [facility] Comment on above: Performed By: #### C DP, IPF #### [address] [address] Motor Vehicle Examiner: Tavon Nicole MD NRBC Automated 0.0 per 100 WBC Normal 0.0 [facility] Comment on above: Performed By: #### C DP, IPF #### [address] [place] [address] Motor Vehicle Examiner: Tavon Nicole MD Platelet Count See Reflexed IPF Result Normal 138-453 [facility] Comment on above: Performed By: #### C DP, IPF #### [address] [place] [address] Motor Vehicle Examiner: Tavon Nicole MD RBC (Bld) [#/Vol] 4.05 10*6/uL Normal 3.95-5.11 [facility] Comment on above: Performed By: #### C DP, IPF #### [facility] [address] [place] [address] Motor Vehicle Examiner: Tavon Nicole MD WBC (Bld) [#/Vol] 4.4 10*3/uL Normal 3.5-11.3 [facility] Comment on above: Performed By: #### C DP, IPF #### [address] [address] Motor Vehicle Examiner: Tavon Nicole MD EEG video monitoringon 10-20 Raiza Land MD 10/20/2021 12:11 PM Referring physician: Chris Blanchard APRN Date:10/20/2021 Start Time:10/19/2021 @1258 End Time: 10/20/2021 @ 1200 Indication Patient with recurrent events Introduction This continuous video-EEG was acquired using a [email or web address] workstation at 256 samples/s. Electrodes were placed [...] Board Certified. Neurology Board Certified. Electronically Signed [employer] Phone: EEG video monitoringOrdered By: Raiza Land on 10-20-2021 [employer] Phone: Immature Platelet Fractionon 10-20-2021 Platelet, Fluorescence Platelet clumps present, count appears adequate. [facility] [employer] [facility] PLT, Immature Fract.on 10-20 Platelet, Fluoresc. Platelet clumps present, count appears adequate. Normal 138-453 [facility] Comment on above: Performed By: #### C DP, IPF #### [employer] [address] [place] [address] Motor Vehicle Examiner: Tavon Nicole MD PROLACTINon 10-20-2021 Prolactin 41.7 ng/mL Critically high 4.8-23.3 [facility] Comment on above: Performed By: #### C VDTBH #### [facility] [address] [place], [place] [address] Dr. Ibis Jimenez CBCon 10-19-2021 Erythrocyte distribution width (RBC) [Ratio] 12.9 % Normal 11.8-14.4 [facility] Comment on above: Performed By: #### T ROPI, LACTIC, CMPX, CBC #### [employer] [facility] [place] [address] Motor Vehicle Examiner: Tavon Nicole MD Hematocrit (Bld) [Volume fraction] 31.5 % Low 36.3-47.1 [facility] Comment on above: Performed By: #### T ROPI, LACTIC, CMPX, CBC #### [address] [address] Motor Vehicle Examiner: Tavon Nicole MD Hemoglobin (Bld) [Mass/Vol] 10.8 g/dL Low 11.9-15.1 [facility] Comment on above: Performed By: #### T ROPI, LACTIC, CMPX, CBC #### [address] [address] Motor Vehicle Examiner: Tavon Nicole MD MCH (RBC) [Entitic mass] 29.1 pg Normal 25.2-33.5 [facility] Comment on above: Performed By: #### T ROPI, LACTIC, CMPX, CBC #### [address] [address] Motor Vehicle Examiner: Tavon Nicole MD MCHC (RBC) [Mass/Vol] 34.3 g/dL Normal 28.4-34.8 [facility] Comment on above: Performed By: #### T ROPI, LACTIC, CMPX, CBC #### [address] [address] Motor Vehicle Examiner: Tavon Nicole MD MCV (RBC) [Entitic vol] 84.9 fL Normal 82.6-102.9 [facility] Comment on above: Performed By: #### T ROPI, LACTIC, CMPX, CBC #### [address] [address] Motor Vehicle Examiner: Tavon Nicole MD NRBC Automated 0.0 per 100 WBC Normal 0.0 [facility] Comment on above: Performed By: #### T ROPI, LACTIC, CMPX, CBC #### [address] [address] Motor Vehicle Examiner: Tavon Nicole MD Platelet mean volume (Bld) [Entitic vol] 9.8 fL Normal 8.1-13.5 [facility] Comment on above: Performed By: #### T BRETT LACTIC, CMPX, CBC #### [employer] [facility] [place] [address] Motor Vehicle Examiner: Tavon Nicole MD Platelets (Bld) [#/Vol] 281 10*3/uL Normal 138-453 [facility] Comment on above: Performed By: #### T ROPI, LACTIC, CMPX, CBC #### [facility] [place], [place] [id number] Motor Vehicle Examiner: Tavon Nicole MD RBC (Bld) [#/Vol] 3.71 10*6/uL Low 3.95-5.11 [facility] Comment on above: Performed By: #### T BRETT LACTIC, CMPX, CBC #### [facility] [address] [place] [address] Motor Vehicle Examiner: Tavon Nicole MD WBC (Bld) [#/Vol] 5.0 10*3/uL Normal 3.5-11.3 [facility] Comment on above: Performed By: #### T ROPI, LACTIC, CMPX, CBC #### [facility] [place] [address] Motor Vehicle Examiner: Tavon Nicole MD Hematocrit (Bld) [Volume fraction] 31.5 % Low 36.3 - 47.1 % [facility] Hemoglobin (Bld) [Mass/Vol] 10.8 g/dL Low 11.9 - 15.1 g/dL [facility] Interpretation and review of laboratory results Abnormal [facility] MCH (RBC) [Entitic mass] 29.1 pg 25.2 - 33.5 pg [facility] MCHC (RBC) [Mass/Vol] 34.3 g/dL 28.4 - 34.8 g/dL [facility] MCV (RBC) [Entitic vol] 84.9 fL 82.6 - 102.9 fL [facility] NRBC Automated 0.0 0.0 per 100 WBC [facility] Platelet distribution width (Bld) [Ratio] 12.9 % 11.8 - 14.4 % [facility] Platelet mean volume (Bld) [Entitic vol] 9.8 fL 8.1 - 13.5 fL [facility] Platelets (Bld) [#/Vol] 281 10*3/uL [facility] RBC (Bld) [#/Vol] 3.71 10*6/uL Low 3.95 - 5.1 1 m/uL [facility] WBC (Bld) [#/Vol] 5.0 10*3/uL [facility] CBC AUTO DIFFon 10-19-2021 EO # 0.2 103/ul Normal 0.0-0.7 [facility] Comment on above: Performed By: #### A MM #### [facility] [address] [place] [address] Dr. Ibis Jimenez Eosinophils/100 WBC (Bld) 3.9 % Normal 0.9-7.0 [facility] Comment on above: Performed By: #### A MM #### [facility] [address] [place] [address] Dr. Ibis Jimenez Erythrocyte distribution width (RBC) [Ratio] 13.1 % Normal 11.0-15.0 [facility] Comment on above: Performed By: #### A MM #### [facility] [address] [place] [address] Dr. Ibis Jimenez Hematocrit (Bld) [Volume fraction] 33.4 % Critically low 36.0-48.0 [facility] Comment on above: Performed By: #### A MM #### [facility] [address] [place] [address] Dr. Ibis Jimenez Hemoglobin (Bld) [Mass/Vol] 11.1 g/dL Critically low 12.0-16.0 [facility] Comment on above: Performed By: #### A MM #### [facility] [address] [place] [address] Dr. Ibis Jimenez LYMPH # 1.2 103/ul Normal 1.2-3.8 [facility] Comment on above: Performed By: #### A MM #### [facility] [address] [place] [address] Dr. Ibis Jimenez Lymphocytes/100 WBC (Bld) 25.9 % Normal 20.5-60.0 [facility] Comment on above: Performed By: #### A MM #### [facility] [address] [place] [address] Dr. Ibis Jimenez MCHC (RBC) [Mass/Vol] 33.2 g/dL Normal 29.9-35.2 [facility] Comment on above: Performed By: #### A MM #### [facility] [address] [place] [address] Dr. Ibis Jimenez MCV (RBC) [Entitic vol] 85.9 fL Normal 81.0-99.0 [facility] Comment on above: Performed By: #### A MM #### [facility] [address] [place] [address] Dr. Ibis Jimenez Monocytes/100 WBC (Bld) 7.7 % Normal 1.7-12.0 [facility] Comment on above: Performed By: #### A MM #### [facility] [address] [place] [address] Dr. Ibis Jimenez NEUT # 2.9 103/ul Normal 1.4-6.5 [facility] Comment on above: Performed By: #### A MM #### [facility] [address] [place] [address] Dr. Ibis Jimenez Neutrophils/100 WBC (Bld) 61.5 % Normal 43.0-75.0 [facility] Comment on above: Performed By: #### A MM #### [facility] [address] [place] [address] Dr. Ibis Jimenez PLT 264 103/ul Normal 150-450 [facility] Comment on above: Performed By: #### A MM #### [facility] [address] [place] [address] Dr. Ibis Jimenez RBC 3.89 106/ul Critically low 4.20-5.40 [facility] Comment on above: Performed By: #### A MM #### [facility] [address] [place] [address] Dr. Ibis Jimenez WBC 4.7 103/ul Normal 4.0-11.0 [facility] Comment on above: Performed By: #### A MM #### [facility] [address] [place] [address] Dr. Ibis Jimenez BASO # 0.0 103/ul Normal 0.0-0.1 [facility] Comment on above: Performed By: #### A MM #### [facility] [address] [place] [address] Dr. Ibis Jimenez Performed By: #### C VDTBH #### [facility] [address] [place] [address] Dr. Ibis Jimenez Basophils/100 WBC (Bld) 0.6 % Normal 0.2-2.0 [facility] Comment on above: Performed By: #### A MM #### [facility] [address] [place] [address] Dr. Ibis Jimenez Performed By: #### C VDTBH #### [facility] [address] [place] [address] Dr. Ibis Jimenez EO # 0.3 103/ul Normal 0.0-0.7 [facility] Comment on above: Performed By: #### C VDTBH #### [facility] [address] [place] [address] Dr. Ibis Jimenez Eosinophils/100 WBC (Bld) 5.0 % Normal 0.9-7.0 [facility] Comment on above: Performed By: #### C VDTBH #### [facility] [address] [place] [address] Dr. Ibis Jimenez Erythrocyte distribution width (RBC) [Ratio] 12.8 % Normal 11.0-15.0 [facility] Comment on above: Performed By: #### C VDTBH #### [facility] [address] [place] [address] Dr. Ibis Jimenez Hematocrit (Bld) [Volume fraction] 38.0 % Normal 36.0-48.0 [facility] Comment on above: Performed By: #### C VDTBH #### [facility] [address] [place] [address] Dr. Ibis Jimenez Hemoglobin (Bld) [Mass/Vol] 12.7 g/dL Normal 12.0-16.0 [facility] Comment on above: Performed By: #### C VDTBH #### [facility] [address] [place] [address] Dr. Ibis Jimenez IG # 0.02 10e3/ul Normal 0.00-0.03 [facility] Comment on above: Performed By: #### A MM #### [facility] [address] [place] [address] Dr. Ibis Jimenez Performed By: #### C VDTBH #### [facility] [address] [place] [address] Dr. Ibis Jimenez IG % 0.4 % Normal 0.0-0.5 [facility] Comment on above: Performed By: #### A MM #### [facility] [address] [place] [address] Dr. Ibis Jimenez Performed By: #### C VDTBH #### [facility] [address] [place] [address] Dr. Ibis Jimenez LYMPH # 1.7 103/ul Normal 1.2-3.8 [facility] Comment on above: Performed By: #### C VDTBH #### [facility] [address] [place] [address] Dr. Ibis Jimenez Lymphocytes/100 WBC (Bld) 30.7 % Normal 20.5-60.0 [facility] Comment on above: Performed By: #### C VDTBH #### [facility] [address] [place] [address] Dr. Ibis Jimenez MANUAL DIFF REQ NO Normal [facility] Comment on above: Performed By: #### A MM #### [facility] [address] [place] [address] Dr. Ibis Jimenez Performed By: #### C VDTBH #### [facility] [address] [place] [address] Dr. Ibis Jimenez MCH (RBC) [Entitic mass] 28.5 pg Normal 26.7-34.0 [facility] Comment on above: Performed By: #### A MM #### [facility] [address] [place] [address] Dr. Ibis Jimenez Performed By: #### C VDTBH #### [facility] [address] [place] [address] Dr. Ibis Jimenez MCHC (RBC) [Mass/Vol] 33.4 g/dL Normal 29.9-35.2 [facility] Comment on above: Performed By: #### C VDTBH #### [facility] [address] [place] [address] Dr. Ibis Jimenez MCV (RBC) [Entitic vol] 85.2 fL Normal 81.0-99.0 [facility] Comment on above: Performed By: #### C VDTBH #### [facility] [address] [place] [address] Dr. Ibis Jimenez MONO # 0.4 103/ul Normal 0.3-0.8 [facility] Comment on above: Performed By: #### A MM #### [facility] [address] [place] [address] Dr. Ibis Jimenez Performed By: #### C VDTBH #### [facility] [address] [place] [address] Dr. Ibis Jimenez Monocytes/100 WBC (Bld) 8.1 % Normal 1.7-12.0 [facility] Comment on above: Performed By: #### C VDTBH #### [facility] [address] [place] [address] Dr. Ibis Jimenez NEUT # 3.0 103/ul Normal 1.4-6.5 [facility] Comment on above: Performed By: #### C VDTBH #### [facility] [address] [place] [address] Dr. Ibis Jimenez Neutrophils/100 WBC (Bld) 55.2 % Normal 43.0-75.0 [facility] Comment on above: Performed By: #### C VDTBH #### [facility] [address] [place] [address] Dr. Ibis Jimenez Platelet mean volume (Bld) [Entitic vol] 9.5 fL Normal 9.5-13.5 [facility] Comment on above: Performed By: #### A MM #### [facility] [address] [place] [address] Dr. Ibis Jimenez Performed By: #### C VDTBH #### [facility] [address] [place] [address] Dr. Ibis Jimenez PLT 343 103/ul Normal 150-450 [facility] Comment on above: Performed By: #### C VDTBH #### [facility] [address] [place] [address] Dr. Ibis Jimenez RBC 4.46 106/ul Normal 4.20-5.40 [facility] Comment on above: Performed By: #### C VDTBH #### [facility] [address] [place] [address] Dr. Ibis Jimenez WBC 5.4 103/ul Normal 4.0-11.0 [facility] Comment on above: Performed By: #### C VDTBH #### [facility] [address] [place] [address] HEAD WO CONon [...] LOPEZ REYNOLDS Date: 2021-10-19 07:31 Normal [facility] Comp Metabolic Pr/rfx MGon 0 10-19-2021 (cont.) Normal [facility] Comment on above: Result Comment: Aver age GFR for 20-29 years old: 116 mL/min/1.73sq m Chronic Kidney Disease: <60 mL/min/1.73sq m Kidney failure: <15 mL/min/1.73sq m eGFR calculated using average adult body mass. Additional eGFR calculator available at: http://www.Kranem/multiple_crcl_2011.htm Performed By: #### T ROPI, LACTIC, CMPX, CBC #### [facility] [address] [place] [id number] Motor Vehicle Examiner: Tavon Nicole MD Albumin [Mass/Vol] 3.5 g/dL Normal 3.5-5.2 [facility] Comment on above: Performed By: #### T ROPI, LACTIC, CMPX, CBC #### [employer] [address] [place] [phone] Motor Vehicle Examiner: Tavon Nicole MD Albumin/Glob Ratio 1.4 Normal 1.0-2.5 [facility] Comment on above: Performed By: #### T ROPI, LACTIC, CMPX, CBC #### [employer] [address] [place] [phone] Motor Vehicle Examiner: Tavon Nicole MD Alkaline Phos 69 U/L Normal 35-104 [facility] Comment on above: Performed By: #### T ROPI, LACTIC, CMPX, CBC #### [employer] [address] [place] [phone] Motor Vehicle Examiner: Tavon Nicole MD ALT [Catalytic activity/Vol] 15 U/L Normal 5-33 [facility] Comment on above: Performed By: #### T ROPI, LACTIC, CMPX, CBC #### [facility] [address] [place] [phone] Motor Vehicle Examiner: Tavon Nicole MD Anion gap [Moles/Vol] 13 mmol/L Normal 9-17 [facility] Comment on above: Performed By: #### T ROPI, LACTIC, CMPX, CBC #### [facility] [address] [place] [phone] Motor Vehicle Examiner: Tavon Nicole MD AST [Catalytic activity/Vol] 12 U/L Normal <32 [facility] Comment on above: Performed By: #### T ROPI, LACTIC, CMPX, CBC #### [facility] [address] [place] [phone] Motor Vehicle Examiner: Tavon Nicole MD Bilirubin [Mass/Vol] 0.24 mg/dL Low 0.3-1.2 [facility] Comment on above: Performed By: #### T ROPI, LACTIC, CMPX, CBC #### [facility] [address] [place] [phone] Motor Vehicle Examiner: Tavon Nicole MD Calcium [Mass/Vol] 8.1 mg/dL Low 8.6-10.4 [facility] Comment on above: Performed By: #### T ROPI, LACTIC, CMPX, CBC #### [facility] [address] [place] [phone] Motor Vehicle Examiner: Tavon Nicole MD Chloride [Moles/Vol] 107 mmol/L Normal 98-107 [facility] Comment on above: Performed By: #### T ROPI, LACTIC, CMPX, CBC #### [facility] [address] [place] [phone] Motor Vehicle Examiner: Tavon Nicole MD CO2 [Moles/Vol] 19 mmol/L Low 20-31 [facility] Comment on above: Performed By: #### T ROPI, LACTIC, CMPX, CBC #### [facility] [address] [place] [phone] Motor Vehicle Examiner: Tavon Nicole MD Creatinine [Mass/Vol] 0.53 mg/dL Normal 0.50-0.90 [facility] Comment on above: Performed By: #### T ROPI, LACTIC, CMPX, CBC #### [facility] [address] [place] [phone] Motor Vehicle Examiner: Tavon Nicole MD GFR, Amer >60 Normal >60 [facility] Comment on above: Performed By: #### T ROPI, LACTIC, CMPX, CBC #### [facility] [address] [place] [address]5 Motor Vehicle Examiner: Tavon Nicole MD GFR,non Amer >60 Normal >60 [facility] Comment on above: Performed By: #### T ROPI, LACTIC, CMPX, CBC #### [facility] [address] [place] [phone] Motor Vehicle Examiner: Tavon Nicole MD Glucose [Mass/Vol] 81 mg/dL Normal 70-99 [facility] Comment on above: Performed By: #### T ROPI, LACTIC, CMPX, CBC #### [facility] [address] [place] [address] Motor Vehicle Examiner: Tavon Nicole MD Potassium [Moles/Vol] 3.9 mmol/L Normal 3.7-5.3 [facility] Comment on above: Performed By: #### T ROPI, LACTIC, CMPX, CBC #### [facility] [address] [place] [address] Motor Vehicle Examiner: Tavon Nicole MD Protein [Mass/Vol] 6.0 g/dL Low 6.4-8.3 [facility] Comment on above: Performed By: #### T ROPI, LACTIC, CMPX, CBC #### [facility] [address] [place] [address] [phone] Motor Vehicle Examiner: Tavon Nicole MD Sodium [Moles/Vol] 139 mmol/L Normal 135-144 [facility] Comment on above: Performed By: #### T ROPI, LACTIC, CMPX, CBC #### [facility] [address] [place], [place] [phone] Motor Vehicle Examiner: Tavon Nicole MD Urea nitrogen [Mass/Vol] 10 mg/dL Normal 6-20 [facility] Comment on above: Performed By: #### T ROPI, LACTIC, CMPX, CBC #### [facility] [address] [place], [place] [phone] Motor Vehicle Examiner: Tavon Nicole MD Comprehensive Metabolic Pane l w/ Reflex to MGon 10-19-2021 Albumin [Mass/Vol] 3.5 g/dL 3.5 - 5.2 g/dL [facility] Albumin/Globulin [Mass ratio] 1.4 {ratio} 1 - 2.5 [facility] ALP (Bld) [Catalytic activity/Vol] 69 U/L 35 - 104 U/L [facility] ALT [Catalytic activity/Vol] 15 U/L 5 - 33 U/L [facility] Anion gap [Moles/Vol] 13 mmol/L 9 - 17 mmol/L [facility] AST [Catalytic activity/Vol] 12 U/L NINF - 32 U/L [facility] Bilirubin [Mass/Vol] 0.24 mg/dL Low 0.3 - 1 .2 mg/dL [facility] Calcium [Mass/Vol] 8.1 mg/dL Low 8.6 - 10. 4 mg/dL [facility] Chloride [Moles/Vol] 107 mmol/L 98 - 10 7 mmol/L [facility] CO2 [Moles/Vol] 19 mmol/L Low 20 - 31 mmol/L [facility] Creatinine [Mass/Vol] 0.53 mg/dL 0.5 - 0.9 mg/dL [facility] Free PSA/Total PSA [Mass fraction] 6.0 g/dL Low 6.4 - 8.3 g/dL [facility] GFR >60 60 - PI NF mL/min [facility] GFR Non- >60 60 - PINF mL/min [facility] GFR/1.73 sq M.predicted MDRD (S/P/Bld) [Vol rate/Area] [facility] Comment on above: Average GFR for 20-2 9 years old: 116 mL/min/1.73sq m Chronic Kidney Disease: <60 mL/min/1.73sq m Kidney failure: <15 mL/min/1.73sq m eGFR calculated using average adult body mass. Additional eGFR calculator available at: http://www.Kranem/multiple_crcl_2011.htm Glucose [Mass/Vol] 81 mg/dL 70 - 99 mg/dL [facility] Interpretation and review of laboratory results Abnormal [facility] Potassium [Moles/Vol] 3.9 mmol/L 3.7 - 5.3 mmol/L [facility] Sodium [Moles/Vol] 139 mmol/L 135 - 144 mmol/L [facility] Urea nitrogen (BldV) [Mass/Vol] 10 mg/dL 6 - 20 mg/dL [facility] Covid-19 PCR ([facility])on 09-22 SARS-CoV-2 (COVID-19) RNA SAURABH+probe Ql (Unsp spec) Not detected Normal NOT DETECTED [facility] Comment on above: Result Comment: When [...] for this test is supported by the [place] of [employer] and Human Service's declaration that [...] used). Performed By: #### C VDTB #### [facility] [address] [place] [address] Dr. Ibis Jimenez DRUG SCREEN RAPID (URINE)on 10-19-2021 AMP Negative Normal NEGATIVE [facility] Comment on above: Performed By: #### B MP #### [facility] [address] [place] [address] Dr. Ibis Jimenez BAR Positive Abnormal NEGATIVE [facility] Comment on above: Performed By: #### B MP #### [facility] [address] [place] [address] Dr. Ibis Jimenez BUP Negative Normal NEGATIVE [facility] Comment on above: Performed By: #### B MP #### [facility] [address] [place] [address] Dr. Ibis Jimenez BZO Positive Abnormal NEGATIVE [facility] Comment on above: Performed By: #### B MP #### [facility] [address] [place] [address] Dr. Ibis Jimenez SEMAJ Negative Normal NEGATIVE [facility] Comment on above: Performed By: #### B MP #### [facility] [address] [place] [address] Dr. Ibis Jimenez CUT-OFFS SEE BELOW Normal [facility] Comment on above: Result Comment: AMP [...] ng/mL Performed By: #### B MP #### [facility] [address] [place] [address] Dr. Ibis Jimenez DRUG CUT HEADER DRUG CLASS TEST SYSTEM CUT-OFF CONCENTRATIONS ARE FOLLOWS: Normal [facility] Comment on above: Performed By: #### B MP #### [facility] [address] [place] [address] Dr. Ibis Jimenez mAMP Negative Normal NEGATIVE [facility] Comment on above: Performed By: #### B MP #### [facility] [address] [place] [address] Dr. Ibis Jimenez MTD Negative Normal NEGATIVE [facility] Comment on above: Performed By: #### B MP #### [facility] [address] [place] [address] Dr. Ibis Jimenez OPI Positive Abnormal NEGATIVE [facility] Comment on above: Performed By: #### B MP #### [facility] [address] [place] [address] Dr. Ibis Jimenez OXY Positive Abnormal NEGATIVE [facility] Comment on above: Performed By: #### B MP #### [facility] [address] [place] [address] Dr. Ibis Jimenez PCP Negative Normal NEGATIVE [facility] Comment on above: Performed By: #### B MP #### [facility] [address] [place] [address] Dr. Ibis Jimenez PPX Negative Normal NEGATIVE [facility] Comment on above: Performed By: #### B MP #### [facility] [address] [place] [address] Dr. Ibis Jimenez TCA Negative Normal NEGATIVE [facility] Comment on above: Performed By: #### B MP #### [facility] [address] [place] [address] Dr. Ibis Jimenez THC Negative Normal NEGATIVE [facility] Comment on above: Performed By: #### B MP #### [facility] [address] [place] [address] Dr. Ibis Jimenez ER URINE PROFILEon 2 Bilirubin Ql (U) Negative Normal NEGATIVE [facility] Comment on above: Performed By: #### B MP #### [facility] [address] [place] [address] Dr. Ibis Jimenez Clarity (U) CLEAR Normal CLEAR [facility] Comment on above: Performed By: #### B MP #### [facility] [address] [place] [address] Dr. Ibis Jimenez Color (U) YELLOW Normal YELLOW [facility] Comment on above: Performed By: #### B MP #### [facility] [address] [place] [address] Dr. Ibis Jimenez ERUAHD A micrscopic examination will be performed if indicated. Normal [facility] Comment on above: Performed By: #### B MP #### [facility] [address] [place] [address] Dr. Ibis Jimenez Glucose Ql (U) Negative Normal NEGATIVE [facility] Comment on above: Performed By: #### B MP #### [facility] [address] [place] [address] Dr. Ibis Jimenez Hemoglobin Ql (U) TRACE-INTACT Abnormal NEGATIVE [facility] Comment on above: Performed By: #### B MP #### [facility] [address] [place] [address] Dr. Ibis Jimenez Ketones Ql (U) Negative Normal NEGATIVE [facility] Comment on above: Performed By: #### B MP #### [facility] [address] [place] [address] Dr. Ibis Jimenez LEUKOCYTES Negative Normal NEGATIVE [facility] Comment on above: Performed By: #### B MP #### [facility] [address] [place] [address] Dr. Ibis Jimenez Nitrite Ql (U) Negative Normal NEGATIVE [facility] Comment on above: Performed By: #### B MP #### [facility] [address] [place] [address] Dr. Ibis Jimenez pH (U) 5.5 [pH] Normal 5-9 [facility] Comment on above: Performed By: #### B MP #### [facility] [address] [place] [address] Dr. Ibis Jimenez SPEC GRAVITY >=1.030 Abnormal 1.005-<=1.02 5 [facility] Comment on above: Performed By: #### B MP #### [facility] [address] [place] [address] Dr. Ibis Jimenez UA PROTEIN Negative Normal NEGATIVE/ TRACE [facility] Comment on above: Performed By: #### B MP #### [facility] [address] [place] [address] Dr. Ibis Jimenez UR MICRO IND INDICATED Normal [facility] Comment on above: Performed By: #### B MP #### [facility] [address] [place] [address] Dr. Ibis Jimenez Urobilinogen Qn (U) 0.2 {Dinorah'U}/dL Normal 0.2 - 1. 0 [facility] Comment on above: Performed By: #### B MP #### [facility] [address] [place] [address] Dr. Ibis Jimenez LACTATE/LACTIC ACIDon 2021 Lactate [Moles/Vol] 1.2 mmol/L Normal 0.4-1.9 [facility] Comment on above: Performed By: #### A MM #### [facility] [address] [place] [address] Dr. Ibis Jimenez Lactic Acidon 10-19-2021 Lactic Acid,Whole Bl 0.9 mmol/L Normal 0.7-2.1 [facility] Comment on above: Performed By: #### T ROPI, LACTIC, CMPX, CBC #### [facility] [place] [address] Motor Vehicle Examiner: Tavon Nicole MD Lactic Acid, Whole Blood 0.9 mmol/L 0.7 - 2.1 mmol/L [facility] MONOon 10-19-2021 Monocytes (Bld) [#/Vol] Negative Normal NEGATIVE [facility] Comment on above: Performed By: #### M DAVID #### [facility] [address] [place] [address] Dr. Ibis Jimenez MRI BRAIN W WO [...] Carlos Marks DO 10/19/21 Final result Normal [facility] Unremarkable MR brain. [facility] RIS CONSOLIDATED EXAMINATION: MRI OF THE BRAIN [...] The soft tissues demonstrate no acute abnormality. [facility] Carlos Marks DO - 10/19/2021 EXAMINATION: MRI [...] no acute abnormality. IMPRESSION: Unremarkable MR brain. [employer] Phone: Radiology Study observation (narrative) [employer] Phone: MRI BRAIN W WO CONTRASTOrder ed By: Carlos Marks on 10-19-2021 [employer] Phone: PH VENOUS BLOODon 10-19-2021 PCO2 VENOUS 36.6 mmHg Critically low 40.0-52.0 [facility] Comment on above: Performed By: #### B MP #### [facility] [address] [address] [address] Ibis Jimenez pH VENOUS 7.387 Normal 7.330-7.430 [facility] Comment on above: Performed By: #### B MP #### [facility] [address] [address] [address] Ibis Jimenez PROF CHEM 8 (BAS METB)on Anion gap [Moles/Vol] 11.9 mmol/L Normal Th [facility] Comment on above: Performed By: #### M DAVID #### [facility] [address] [address] [address] Ibis Jimenez Calcium [Mass/Vol] 9.1 mg/dL Normal 8.5-10.1 [facility] Comment on above: Performed By: #### M DAVID #### [facility] [address] [place] [address] Dr. Ibis Jimenez Chloride [Moles/Vol] 104 mmol/L Normal 98-107 [facility] Comment on above: Performed By: #### M DAVID #### [facility] [address] [place] [address] Dr. Ibis Jimenez CO2 [Moles/Vol] 26.7 mmol/L Normal 21.0-32.0 [facility] Comment on above: Performed By: #### M DAVID #### [facility] [address] [place] [address] Dr. Ibis Jimenez Creatinine [Mass/Vol] 0.78 mg/dL Normal 0.55-1.02 [facility] Comment on above: Performed By: #### M DAVID #### [facility] [address] [place] [address] Dr. Ibis Jimenez EGFR-AF SOUTH AFRICAN >60 Normal >=60 [facility] Comment on above: Performed By: #### M DAVID #### [facility] [address] [place] [address] Dr. Ibis Jimenez EGFR-NON AF SOUTH AFRICAN >60 Normal >=60 [facility] Comment on above: Performed By: #### M DAVID #### [facility] [address] [place] [address] Dr. Ibis Jimenez Glucose [Mass/Vol] 96 mg/dL Normal 74-106 [facility] Comment on above: Performed By: #### M DAVID #### [facility] [address] [address] [address] Ibis Jimenez Potassium [Moles/Vol] 3.6 mmol/L Normal 3.5-5.1 [facility] Comment on above: Performed By: #### M DAVID #### [facility] [address] [address] [address] Ibis Jimenez Sodium [Moles/Vol] 139 mmol/L Normal 136-145 [facility] Comment on above: Performed By: #### M DAVID #### [facility] [address] [address] [address] Ibis Jimenez Urea nitrogen [Mass/Vol] 14.0 mg/dL Normal 7.0-18.0 [facility] Comment on above: Performed By: #### M DAVID #### [facility] [address] [address] [address] Ibis Jimenez Urea nitrogen/Creatinine [Mass ratio] 17.9 mg/mg Normal [facility] Comment on above: Performed By: #### M DAVID #### [facility] [address] [address] [address] Ibis Jimenez TSHon 10-19-2021 TSH 1.389 uIU/mL Normal 0.358-3.740 [facility] Comment on above: Performed By: #### A CET, SALYC #### [facility] [address] [address] [address] Ibis Jimenez Troponinon 10-19-2021 Troponin, High Sens <6 Normal 0-14 [facility] Comment on above: Result Comment: High Sensitivity Troponin values cannot be compared with other Troponin methodologies. Patients with high levels of Biotin oral intake (i.e >5mg/day) may have falsely decreased Troponin levels. Samples collected within 8 hours of biotin intake may require additional information for diagnosis. Performed By: #### T ROPI, LACTIC, CMPX, CBC #### [facility] IMRSV [facility] [id number] Motor Vehicle Examiner: Tavon Nicole MD Troponin, High Sensitivity ng/L 0 - 14 ng/L [facility] Comment on above: High Sensitivity Troponin values cannot be compared with other Troponin methodologies. Patients with high levels of Biotin oral intake (i.e >5mg/day) may have falsely decreased Troponin levels. Samples collected within 8 hours of biotin intake may require additional information for diagnosis. [facility] URINE MICROSCOPIC ONLYon BACTERIA TRACE Abnormal NONE SEEN [facility] Comment on above: Performed By: #### B MP #### [facility] [address] [place] [address] Dr. Ibis Jimenez Bacteria identified Cx Nom (U) NOT INDICATED Normal [facility] Comment on above: Performed By: #### B MP #### [facility] [address] [place] [address] Dr. Ibis Jimenez CAST NONE SEEN Normal NONE SEEN [facility] Comment on above: Performed By: #### B MP #### [facility] [address] [place] [address] Dr. Ibis Jimenez Crystals LM Nom (Urine sed) NONE SEEN Normal NONE SEEN [facility] Comment on above: Performed By: #### B MP #### [facility] [address] [place] [address] Dr. Ibis Jimenez Epithelial cells LM Ql (Urine sed) RARE Normal NONE SEEN /RARE [facility] Comment on above: Performed By: #### B MP #### [facility] [address] [place] [address] Dr. Ibis Jimenez MUCOUS LARGE Abnormal NONE SEEN [facility] Comment on above: Performed By: #### B MP #### [facility] [address] [place] [address] Dr. Ibis Jimenez RBC 2-5 Abnormal 0-2 [facility] Comment on above: Performed By: #### B MP #### [facility] [address] [place] [address] Dr. Ibis Jimenez WBC 0-2 Abnormal NONE SEEN [facility] Comment on above: Performed By: #### B MP #### [facility] [address] [place] [address] ABD/PELVIS WO CONon [...] JASS LAURENT Date: 2021-10-06 20:08 Normal [facility] URINE PROFILEon 2 Bilirubin Ql (U) Negative Normal NEGATIVE [facility] Comment on above: Performed By: #### M DAVID #### [facility] [address] [address] [address] Ibis Jimenez Clarity (U) CLEAR Normal CLEAR [facility] Comment on above: Performed By: #### M DAVID #### [facility] [address] [place], [place] [address] Dr. Ibis Jimenez Color (U) LT. YELLOW Normal YELLOW [facility] Comment on above: Performed By: #### M DAVID #### [facility] [address] [address] [address] Ibis RODRIGUEZ A micrscopic examination will be performed if indicated. Normal [facility] Comment on above: Performed By: #### M DAVID #### [facility] [address] [address] [address] Ibis Jimenez Glucose Ql (U) Negative Normal NEGATIVE [facility] Comment on above: Performed By: #### M DAVID #### [facility] [address] [address] [address] Ibis Jimenez Hemoglobin Ql (U) Negative Normal NEGATIVE [facility] Comment on above: Performed By: #### M DAVID #### [facility] [address] [address] [address] Ibis Jimenez Ketones Ql (U) Negative Normal NEGATIVE [facility] Comment on above: Performed By: #### M DAVID #### [facility] [address] [address] [address] Ibis Jimenez LEUKOCYTES Negative Normal NEGATIVE [facility] Comment on above: Performed By: #### M DAVID #### [facility] [address] [address] [address] Ibis Jimenez Nitrite Ql (U) Negative Normal NEGATIVE [facility] Comment on above: Performed By: #### M DAVID #### [facility] [address] [address] [address] Ibis Jimenez pH (U) 8.0 [pH] Normal 5-9 [facility] Comment on above: Performed By: #### M DAVID #### [facility] [address] [address] [address] Ibis Jimenez SPEC GRAVITY 1.010 Normal 1.005-<=1.02 5 [facility] Comment on above: Performed By: #### M DAVID #### [facility] [address] [address] [address] Ibis Jimenez UA PROTEIN Negative Normal NEGATIVE/ TRACE [facility] Comment on above: Performed By: #### M DAVID #### [facility] [address] [address] [address] Ibis Jimenez UR MICRO IND NOT INDICATED Normal [facility] Comment on above: Performed By: #### M DAVID #### [facility] [address] [place] [address] Dr. Ibis Jimenez Urobilinogen Qn (U) 0.2 {Dinorah'U}/dL Normal 0.2 - 1. 0 [facility] Comment on above: Performed By: #### M DAVID #### [facility] [address] [place] [address] Dr. Ibis Jimenez ER URINE PROFILEon 2 Bilirubin Ql (U) Negative Normal NEGATIVE [facility] Comment on above: Performed By: #### C VDTBH #### [facility] [address] [place] [address] Dr. Ibis Jimenez Clarity (U) CLEAR Normal CLEAR [facility] Comment on above: Performed By: #### C VDTBH #### [facility] [address] [place] [address] Dr. Ibis Jimenez Color (U) YELLOW Normal YELLOW [facility] Comment on above: Performed By: #### C VDTBH #### [facility] [address] [place] [address] Dr. Ibis RODRIGUEZ A micrscopic examination will be performed if indicated. Normal [facility] Comment on above: Performed By: #### C VDTBH #### [facility] [address] [place] [address] Dr. Ibis Jimenez Glucose Ql (U) Negative Normal NEGATIVE [facility] Comment on above: Performed By: #### C VDTBH #### [facility] [address] [place] [address] Dr. Ibis Jimenez Hemoglobin Ql (U) Negative Normal NEGATIVE [facility] Comment on above: Performed By: #### C VDTBH #### [facility] [address] [place] [address] Dr. Ibis Jimenez Ketones Ql (U) Negative Normal NEGATIVE [facility] Comment on above: Performed By: #### C VDTBH #### [facility] [address] [place] [address] Dr. Ibis Jimenez LEUKOCYTES Negative Normal NEGATIVE [facility] Comment on above: Performed By: #### C VDTBH #### [facility] [address] [place] [address] Dr. Ibis Jimenez Nitrite Ql (U) Negative Normal NEGATIVE [facility] Comment on above: Performed By: #### C VDTBH #### [facility] [address] [place] [address] Dr. Ibis Jimenez pH (U) 6.0 [pH] Normal 5-9 [facility] Comment on above: Performed By: #### C VDTBH #### [facility] [address] [place] [address] Dr. Ibis Jimenez SPEC GRAVITY 1.025 Normal 1.005-<=1.02 5 [facility] Comment on above: Performed By: #### C VDTBH #### [facility] [address] [place] [address] Dr. Ibis Jimenez UA PROTEIN Negative Normal NEGATIVE/ TRACE [facility] Comment on above: Performed By: #### C VDTBH #### [facility] [address] [place] [address] Dr. Ibis Jimenez UR MICRO IND NOT INDICATED Normal [facility] Comment on above: Performed By: #### C VDTBH #### [facility] [address] [place] [address] Dr. Ibis Jimenez Urobilinogen Qn (U) 0.2 {Dinorah'U}/dL Normal 0.2 - 1. 0 [facility] Comment on above: Performed By: #### C VDTBH #### [facility] [address] [place] [address] Dr. Ibis Jimenez CBC AUTO DIFFon 10-03-2021 BASO # 0.0 103/ul Normal 0.0-0.1 [facility] Comment on above: Performed By: #### B MP #### [facility] [address] [place] [address] Dr. Ibis Jimenez Basophils/100 WBC (Bld) 0.3 % Normal 0.2-2.0 [facility] Comment on above: Performed By: #### B MP #### [facility] [address] [place] [address] Dr. Ibis Jimenez EO # 0.3 103/ul Normal 0.0-0.7 [facility] Comment on above: Performed By: #### B MP #### [facility] [address] [place] [address] Dr. Ibis Jimenez Eosinophils/100 WBC (Bld) 4.1 % Normal 0.9-7.0 [facility] Comment on above: Performed By: #### B MP #### [facility] [address] [place] [address] Dr. Ibis Jimenez Erythrocyte distribution width (RBC) [Ratio] 13.2 % Normal 11.0-15.0 [facility] Comment on above: Performed By: #### B MP #### [facility] [address] [place] [address] Dr. Ibis Jimenez Hematocrit (Bld) [Volume fraction] 35.7 % Critically low 36.0-48.0 [facility] Comment on above: Performed By: #### B MP #### [facility] [address] [place] [address] Dr. Ibis Jimenez Hemoglobin (Bld) [Mass/Vol] 11.6 g/dL Critically low 12.0-16.0 [facility] Comment on above: Performed By: #### B MP #### [facility] [address] [place] [address] Dr. Ibis Jimenez IG # 0.02 10e3/ul Normal 0.00-0.03 [facility] Comment on above: Performed By: #### B MP #### [facility] [address] [place] [address] Dr. Ibis Jimenez IG % 0.3 % Normal 0.0-0.5 [facility] Comment on above: Performed By: #### B MP #### [facility] [address] [place] [address] Dr. Ibis Jimenez LYMPH # 1.5 103/ul Normal 1.2-3.8 [facility] Comment on above: Performed By: #### B MP #### [facility] [address] [place] [address] Dr. Ibis Jimenez Lymphocytes/100 WBC (Bld) 24.3 % Normal 20.5-60.0 [facility] Comment on above: Performed By: #### B MP #### [facility] [address] [place] [address] Dr. Ibis Jimenez MANUAL DIFF REQ NO Normal [facility] Comment on above: Performed By: #### B MP #### [facility] [address] [place] [address] Dr. Ibis Jimenez MCH (RBC) [Entitic mass] 28.9 pg Normal 26.7-34.0 [facility] Comment on above: Performed By: #### B MP #### [facility] [address] [place] [address] Dr. Ibis Jimenez MCHC (RBC) [Mass/Vol] 32.5 g/dL Normal 29.9-35.2 [facility] Comment on above: Performed By: #### B MP #### [facility] [address] [place] [address] Dr. Ibis Jimenez MCV (RBC) [Entitic vol] 89.0 fL Normal 81.0-99.0 [facility] Comment on above: Performed By: #### B MP #### [facility] [address] [place] [address] Dr. Ibis Jimenez MONO # 0.5 103/ul Normal 0.3-0.8 [facility] Comment on above: Performed By: #### B MP #### [facility] [address] [place] [address] Dr. Ibis Jimenez Monocytes/100 WBC (Bld) 7.3 % Normal 1.7-12.0 [facility] Comment on above: Performed By: #### B MP #### [facility] [address] [place] [address] Dr. Ibis Jimenez NEUT # 4.0 103/ul Normal 1.4-6.5 [facility] Comment on above: Performed By: #### B MP #### [facility] [address] [place] [address] Dr. Ibis Jimenez Neutrophils/100 WBC (Bld) 63.7 % Normal 43.0-75.0 [facility] Comment on above: Performed By: #### B MP #### [facility] [address] [place] [address] Dr. Ibis Jimenez Platelet mean volume (Bld) [Entitic vol] 9.7 fL Normal 9.5-13.5 [facility] Comment on above: Performed By: #### B MP #### [facility] [address] [place] [address] Dr. Ibis Jimenez PLT 237 103/ul Normal 150-450 [facility] Comment on above: Performed By: #### B MP #### [facility] [address] [place] [address] Dr. Ibis Jimenez RBC 4.01 106/ul Critically low 4.20-5.40 [facility] Comment on above: Performed By: #### B MP #### [facility] [address] [place] [address] Dr. Ibis Jimenez WBC 6.3 103/ul Normal 4.0-11.0 [facility] Comment on above: Performed By: #### B MP #### [facility] [address] [place] [address] Dr. Ibis Jimenez LACTATE/LACTIC ACIDon 2021 Lactate [Moles/Vol] 1.2 mmol/L Normal 0.4-1.9 [facility] Comment on above: Performed By: #### A MM #### [facility] [address] [place] [address] Dr. Ibis Jimenez BUNon 10-02-2021 Urea nitrogen [Mass/Vol] 7.0 mg/dL Normal 7.0-18.0 [facility] Comment on above: Performed By: #### C VDTBH #### [facility] [address] [place] [address] Dr. Ibis Jimenez CBC AUTO DIFFon 10-02-2021 BASO # 0.0 103/ul Normal 0.0-0.1 [facility] Comment on above: Performed By: #### A MM #### [facility] [address] [place] [address] Dr. Ibis Jimenez Basophils/100 WBC (Bld) 0.2 % Normal 0.2-2.0 [facility] Comment on above: Performed By: #### A MM #### [facility] [address] [place] [address] Dr. Ibis Jimenez EO # 0.0 103/ul Normal 0.0-0.7 [facility] Comment on above: Performed By: #### A MM #### [facility] [address] [place] [address] Dr. Ibis Jimenez Eosinophils/100 WBC (Bld) 0.3 % Critically low 0.9-7.0 [facility] Comment on above: Performed By: #### A MM #### [facility] [address] [place] [address] Dr. Ibis Jimenez Erythrocyte distribution width (RBC) [Ratio] 12.7 % Normal 11.0-15.0 [facility] Comment on above: Performed By: #### A MM #### [facility] [address] [place] [address] Dr. Ibis Jimenez Hematocrit (Bld) [Volume fraction] 43.4 % Normal 36.0-48.0 [facility] Comment on above: Performed By: #### A MM #### [facility] [address] [place] [address] Dr. Ibis Jimenez Hemoglobin (Bld) [Mass/Vol] 14.6 g/dL Normal 12.0-16.0 [facility] Comment on above: Performed By: #### A MM #### [facility] [address] [place] [address] Dr. Ibis Jimenez IG # 0.03 10e3/ul Normal 0.00-0.03 [facility] Comment on above: Performed By: #### A MM #### [facility] [address] [place] [address] Dr. Ibis Jimenez IG % 0.3 % Normal 0.0-0.5 [facility] Comment on above: Performed By: #### A MM #### [facility] [address] [place] [address] Dr. Ibis Jimenez LYMPH # 1.2 103/ul Normal 1.2-3.8 [facility] Comment on above: Performed By: #### A MM #### [facility] [address] [place] [address] Dr. Ibis Jimenez Lymphocytes/100 WBC (Bld) 11.6 % Critically low 20.5-60.0 [facility] Comment on above: Performed By: #### A MM #### [facility] [address] [place] [address] Dr. Ibis Jimenez MANUAL DIFF REQ NO Normal [facility] Comment on above: Performed By: #### A MM #### [facility] [address] [place] [address] Dr. Ibis Jimenez MCH (RBC) [Entitic mass] 28.5 pg Normal 26.7-34.0 [facility] Comment on above: Performed By: #### A MM #### [facility] [address] [place] [address] Dr. Ibis Jimenez MCHC (RBC) [Mass/Vol] 33.6 g/dL Normal 29.9-35.2 [facility] Comment on above: Performed By: #### A MM #### [facility] [address] [place] [address] Dr. Ibis Jimenez MCV (RBC) [Entitic vol] 84.6 fL Normal 81.0-99.0 [facility] Comment on above: Performed By: #### A MM #### [facility] [address] [place] [address] Dr. Ibis Jimenez MONO # 0.6 103/ul Normal 0.3-0.8 [facility] Comment on above: Performed By: #### A MM #### [facility] [address] [place] [address] Dr. Ibis Jimenez Monocytes/100 WBC (Bld) 5.9 % Normal 1.7-12.0 [facility] Comment on above: Performed By: #### A MM #### [facility] [address] [place] [address] Dr. Ibis Jimenez NEUT # 8.2 103/ul Critically high 1.4-6.5 [facility] Comment on above: Performed By: #### A MM #### [facility] [address] [place] [address] Dr. Ibis Jimenez Neutrophils/100 WBC (Bld) 81.7 % Critically high 43.0-75.0 [facility] Comment on above: Performed By: #### A MM #### [facility] [address] [place] [address] Dr. Ibis Jimenez Platelet mean volume (Bld) [Entitic vol] 9.8 fL Normal 9.5-13.5 [facility] Comment on above: Performed By: #### A MM #### [facility] [address] [place] [address] Dr. Ibis Jimenez PLT 264 103/ul Normal 150-450 [facility] Comment on above: Performed By: #### A MM #### [facility] [address] [place] [address] Dr. Ibis Jimenez RBC 5.13 106/ul Normal 4.20-5.40 [facility] Comment on above: Performed By: #### A MM #### [facility] [address] [place] [address] Dr. Ibis Jimenez WBC 10.1 103/ul Normal 4.0-11.0 [facility] Comment on above: Performed By: #### A MM #### [facility] [address] [place] [address] Dr. Ibis Jimenez CREATININEon 10-02-2021 Creatinine [Mass/Vol] 0.69 mg/dL Normal 0.55-1.02 [facility] Comment on above: Performed By: #### C VDTB #### [facility] [address] [place] [address] Dr. Ibis Jimenez EGFR-AF SOUTH AFRICAN >60 Normal >=60 [facility] Comment on above: Performed By: #### C VDTBH #### [facility] [address] [place] [address] Dr. Ibis Jimenez EGFR-NON AF SOUTH AFRICAN >60 Normal >=60 [facility] Comment on above: Performed By: #### C VDTBH #### [facility] [address] [place] [address] Dr. Ibis Jimenez CBC AUTO DIFFon 10-01-2021 BASO # 0.0 103/ul Normal 0.0-0.1 [facility] Comment on above: Performed By: #### A MM #### [facility] [address] [place] [address] Dr. Ibis Jimenez Basophils/100 WBC (Bld) 0.3 % Normal 0.2-2.0 [facility] Comment on above: Performed By: #### A MM #### [facility] [address] [place] [address] Dr. Ibis Jimenez EO # 0.1 103/ul Normal 0.0-0.7 [facility] Comment on above: Performed By: #### A MM #### [facility] [address] [place] [address] Dr. Ibis Jimenez Eosinophils/100 WBC (Bld) 1.9 % Normal 0.9-7.0 [facility] Comment on above: Performed By: #### A MM #### [facility] [address] [place] [address] Dr. Ibis Jimenez Erythrocyte distribution width (RBC) [Ratio] 12.7 % Normal 11.0-15.0 [facility] Comment on above: Performed By: #### A MM #### [facility] [address] [place] [address] Dr. Ibis Jimenez Hematocrit (Bld) [Volume fraction] 38.1 % Normal 36.0-48.0 [facility] Comment on above: Performed By: #### A MM #### [facility] [address] [place] [address] Dr. Ibis Jimenez Hemoglobin (Bld) [Mass/Vol] 12.7 g/dL Normal 12.0-16.0 [facility] Comment on above: Performed By: #### A MM #### [facility] [address] [place] [address] Dr. Ibis Jimenez IG # 0.02 10e3/ul Normal 0.00-0.03 [facility] Comment on above: Performed By: #### A MM #### [facility] [address] [place] [address] Dr. Ibis Jimenez IG % 0.3 % Normal 0.0-0.5 [facility] Comment on above: Performed By: #### A MM #### [facility] [address] [place] [address] Dr. Ibis Jimenez LYMPH # 1.9 103/ul Normal 1.2-3.8 [facility] Comment on above: Performed By: #### A MM #### [facility] [address] [place] [address] Dr. Ibis Jimenez Lymphocytes/100 WBC (Bld) 30.5 % Normal 20.5-60.0 [facility] Comment on above: Performed By: #### A MM #### [facility] [address] [place] [address] Dr. Ibis Jimenez MANUAL DIFF REQ NO Normal [facility] Comment on above: Performed By: #### A MM #### [facility] [address] [place] [address] Dr. Ibis Jimenez MCH (RBC) [Entitic mass] 28.3 pg Normal 26.7-34.0 [facility] Comment on above: Performed By: #### A MM #### [facility] [address] [place] [address] Dr. Ibis Jimenez MCHC (RBC) [Mass/Vol] 33.3 g/dL Normal 29.9-35.2 [facility] Comment on above: Performed By: #### A MM #### [facility] [address] [place] [address] Dr. Ibis Jimenez MCV (RBC) [Entitic vol] 85.0 fL Normal 81.0-99.0 [facility] Comment on above: Performed By: #### A MM #### [facility] [address] [address] [address] Ibis Jimenez MONO # 0.3 103/ul Normal 0.3-0.8 [facility] Comment on above: Performed By: #### A MM #### [facility] [address] [address] [address] Ibis Jimenez Monocytes/100 WBC (Bld) 5.2 % Normal 1.7-12.0 [facility] Comment on above: Performed By: #### A MM #### [facility] [address] [place] [address] Dr. Ibis Jimenez NEUT # 3.9 103/ul Normal 1.4-6.5 [facility] Comment on above: Performed By: #### A MM #### [facility] [address] [place] [address] Dr. Ibis Jimenez Neutrophils/100 WBC (Bld) 61.8 % Normal 43.0-75.0 [facility] Comment on above: Performed By: #### A MM #### [facility] [address] [place] [address] Dr. Ibis Jimenez Platelet mean volume (Bld) [Entitic vol] 9.7 fL Normal 9.5-13.5 [facility] Comment on above: Performed By: #### A MM #### [facility] [address] [place] [address] Dr. Ibis Jimenez PLT 255 103/ul Normal 150-450 [facility] Comment on above: Performed By: #### A MM #### [facility] [address] [place] [address] Dr. Ibis Jimenez RBC 4.48 106/ul Normal 4.20-5.40 [facility] Comment on above: Performed By: #### A MM #### [facility] [address] [place] [address] Dr. Ibis Jimenez WBC 6.3 103/ul Normal 4.0-11.0 [facility] Comment on above: Performed By: #### A MM #### [facility] [address] [place], [place] [address] Dr. Ibis Jimenez PREG HCG QUALon 10-01-2021 , QUAL Negative Normal NEGATIVE [facility] Comment on above: Performed By: #### M DAVID #### [facility] [address] [place] [address] [address] [address] Ibis Jimenez Covid-19 PCR (CVDTBH)on 09-20 SARS-CoV-2 (COVID-19) RNA SAURABH+probe Ql (Unsp spec) Not detected Normal NOT DETECTED [facility] Comment on above: Result Comment: This test is not yet approved or cleared by the [place] FDA. When there are no FDA-approved or cleared tests available, and other criteria are met, FDA can make tests available under an emergency access mechanism called an Emergency Use Authorization (EUA). The EUA for this test is supported by the [place] of Health and Human Service's (HHS's) declaration [...] SARS-CoV-2. Performed By: #### B MP #### [facility] [address] [place], [place] [id number] Dr. Ibis Jimenez TYPE AND SCREENon 09-29-2021 TYPE AND SCREEN Negative Normal [facility] Comment on above: Performed By: #### B MP #### [facility] [address] [place], [place] [address] Dr. Ibis Jimenez Covid-19 PCR (CVDTBH)on SARS-CoV-2 (COVID-19) RNA SAURABH+probe Ql (Unsp spec) Not detected Normal NOT DETECTED [facility] Comment on above: Result Comment: This test is not yet approved or cleared by the [place] FDA. When there are no FDA-approved or cleared tests available, and other criteria are met, FDA can make tests available under an emergency access mechanism called an Emergency Use Authorization (EUA). The EUA for this test is supported by the [place] of Health and Human Service's (HHS's) declaration [...] SARS-CoV-2. Performed By: #### C VDTBH #### [facility] [address] [place] [address] Dr. Ibis Jimenez TYPE AND SCREENon 09-21-2021 TYPE AND SCREEN Negative Normal [facility] Comment on above: Performed By: #### B MP #### [facility] [address] [place] [address] Dr. Ibis Jimenez CHLAMYDIA/GONOCOCCUS SAURABH (SW AB/URINE/PAPon 08-17-2021 Chlamydia trachomatis, SAURABH Negative Normal Negative [facility] Comment on above: Performed By: #### A CET, SALYC #### [facility] [address] [place] [address] Dr. Ibis Jimenez Neisseria gonorrhoeae, SAURABH Negative Normal Negative [facility] Comment on above: Performed By: #### A CET, SALYC #### [facility] [address] [place] [address] Dr. Ibis Jimenez CBC AUTO DIFFon 08-14-2021 BASO # 0.0 103/ul Normal 0.0-0.1 [facility] Comment on above: Performed By: #### C VDTBH #### [facility] [address] [place] [address] Dr. Ibis Jimenez Basophils/100 WBC (Bld) 0.3 % Normal 0.2-2.0 [facility] Comment on above: Performed By: #### C VDTBH #### [facility] [address] [place] [address] Dr. Ibis Jimenez EO # 0.2 103/ul Normal 0.0-0.7 [facility] Comment on above: Performed By: #### C VDTBH #### [facility] [address] [place] [address] Dr. Ibis Jimenez Eosinophils/100 WBC (Bld) 2.5 % Normal 0.9-7.0 [facility] Comment on above: Performed By: #### C VDTBH #### [facility] [address] [place] [address] Dr. Ibis Jimenez Erythrocyte distribution width (RBC) [Ratio] 13.0 % Normal 11.0-15.0 [facility] Comment on above: Performed By: #### C VDTBH #### [facility] [address] [place] [address] Dr. Ibis Jimenez Hematocrit (Bld) [Volume fraction] 38.1 % Normal 36.0-48.0 [facility] Comment on above: Performed By: #### C VDTBH #### [facility] [address] [place] [address] Dr. Ibis Jimenez Hemoglobin (Bld) [Mass/Vol] 12.8 g/dL Normal 12.0-16.0 [facility] Comment on above: Performed By: #### C VDTBH #### [facility] [address] [place] [address] Dr. Ibis Jimenez IG # 0.02 10e3/ul Normal 0.00-0.03 [facility] Comment on above: Performed By: #### C VDTBH #### [facility] [address] [place] [address] Dr. Ibis Jimenez IG % 0.3 % Normal 0.0-0.5 [facility] Comment on above: Performed By: #### C VDTBH #### [facility] [address] [place] [address] Dr. Ibis Jimenez LYMPH # 1.5 103/ul Normal 1.2-3.8 [facility] Comment on above: Performed By: #### C VDTBH #### [facility] [address] [place] [address] Dr. Ibis Jimenez Lymphocytes/100 WBC (Bld) 22.5 % Normal 20.5-60.0 [facility] Comment on above: Performed By: #### C VDTBH #### [facility] [address] [place] [address] Dr. Ibis Jimenez MANUAL DIFF REQ NO Normal [facility] Comment on above: Performed By: #### C VDTBH #### [facility] [address] [place] [address] Dr. Ibis Jimenez MCH (RBC) [Entitic mass] 28.6 pg Normal 26.7-34.0 [facility] Comment on above: Performed By: #### C VDTBH #### [facility] [address] [place] [address] Dr. Ibis Jimenez MCHC (RBC) [Mass/Vol] 33.6 g/dL Normal 29.9-35.2 [facility] Comment on above: Performed By: #### C VDTBH #### [facility] [address] [place] [address] Dr. Ibis Jimenez MCV (RBC) [Entitic vol] 85.0 fL Normal 81.0-99.0 [facility] Comment on above: Performed By: #### C VDTBH #### [facility] [address] [place] [address] Dr. Ibis Jimenez MONO # 0.4 103/ul Normal 0.3-0.8 [facility] Comment on above: Performed By: #### C VDTBH #### [facility] [address] [place] [address] Dr. Ibis Jimenez Monocytes/100 WBC (Bld) 6.3 % Normal 1.7-12.0 [facility] Comment on above: Performed By: #### C VDTBH #### [facility] [address] [place] [address] Dr. Ibis Jimenez NEUT # 4.6 103/ul Normal 1.4-6.5 [facility] Comment on above: Performed By: #### C VDTBH #### [facility] [address] [place] [address] Dr. Ibis Jimenez Neutrophils/100 WBC (Bld) 68.1 % Normal 43.0-75.0 [facility] Comment on above: Performed By: #### C VDTBH #### [facility] [address] [place] [address] Dr. Ibis Jimenez Platelet mean volume (Bld) [Entitic vol] 9.8 fL Normal 9.5-13.5 [facility] Comment on above: Performed By: #### C VDTBH #### [facility] [address] [place] [address] Dr. Ibis Jimenez PLT 243 103/ul Normal 150-450 [facility] Comment on above: Performed By: #### C VDTBH #### [facility] [address] [place] [address] Dr. Ibis Jimenez RBC 4.48 106/ul Normal 4.20-5.40 [facility] Comment on above: Performed By: #### C VDTBH #### [facility] [address] [place] [address] Dr. Ibis Jimenez WBC 6.7 103/ul Normal 4.0-11.0 [facility] Comment on above: Performed By: #### C VDTBH #### [facility] [address] [place] [address] ABD/PELVIS WO CONon [...] NELI COTTO Date: 2021-08-14 18:00 Normal [facility] ER URINE PROFILEon 2 Bilirubin Ql (U) SMALL Abnormal NEGATIVE [facility] Comment on above: Performed By: #### B MP #### [facility] [address] [place] [address] Dr. Ibis Jimenez Clarity (U) CLEAR Normal CLEAR [facility] Comment on above: Performed By: #### B MP #### [facility] [address] [place] [address] Dr. Ibis Jimenez Color (U) YELLOW Normal YELLOW [facility] Comment on above: Performed By: #### B MP #### [facility] [address] [place] [address] Dr. Ibis RODRIGUEZ A micrscopic examination will be performed if indicated. Normal [facility] Comment on above: Performed By: #### B MP #### [facility] [address] [place] [address] Dr. Ibis Jimenez Glucose Ql (U) Negative Normal NEGATIVE [facility] Comment on above: Performed By: #### B MP #### [facility] [address] [place] [address] Dr. Ibis Jimenez Hemoglobin Ql (U) SMALL Abnormal NEGATIVE [facility] Comment on above: Performed By: #### B MP #### [facility] [address] [place] [address] Dr. Ibis Jimenez Ketones Ql (U) TRACE Abnormal NEGATIVE [facility] Comment on above: Performed By: #### B MP #### [facility] [address] [place] [address] Dr. Ibis Jimenez LEUKOCYTES Negative Normal NEGATIVE [facility] Comment on above: Performed By: #### B MP #### [facility] [address] [place] [address] Dr. Ibis Jimenez Nitrite Ql (U) Negative Normal NEGATIVE [facility] Comment on above: Performed By: #### B MP #### [facility] [address] [place] [address] Dr. Ibis Jimenez pH (U) 5.5 [pH] Normal 5-9 [facility] Comment on above: Performed By: #### B MP #### [facility] [address] [place] [address] Dr. Ibis Jimenez SPEC GRAVITY >=1.030 Abnormal 1.005-<=1.[address] [place] [address] Comment on above: Performed By: #### B MP #### [facility] [address] [place] [address] Dr. Ibis Jimenez UA PROTEIN TRACE Normal NEGATIVE/ TRACE [facility] Comment on above: Performed By: #### B MP #### [facility] [address] [place] [address] Dr. Ibis Jimenez UR MICRO IND INDICATED Normal [facility] Comment on above: Performed By: #### B MP #### [facility] [address] [place] [address] Dr. Ibis Jimenez Urobilinogen Qn (U) 1.0 {Dinorah'U}/dL Normal 0.2 - 1. 0 [facility] Comment on above: Performed By: #### B MP #### [facility] [address] [place] [address] Dr. Ibis Jimenez URon 08-14-2021 , QUAL Negative Normal NEGATIVE [facility] Comment on above: Performed By: #### B MP #### [facility] [address] [address] [address] Ibis Jimenez PROF CHEM 8 (BAS METB)on Anion gap [Moles/Vol] 15.3 mmol/L Normal [facility] Comment on above: Performed By: #### B MP #### [facility] [address] [place] [address] Dr. Ibis Jimenez Calcium [Mass/Vol] 8.4 mg/dL Critically low 8.5-10.1 [facility] Comment on above: Performed By: #### B MP #### [facility] [address] [place] [address] Dr. Ibis Jimenez Chloride [Moles/Vol] 106 mmol/L Normal 98-107 [facility] Comment on above: Performed By: #### B MP #### [facility] [address] [place] [address] Dr. Ibis Jimenez CO2 [Moles/Vol] 22.3 mmol/L Normal 21.0-32.0 [facility] Comment on above: Performed By: #### B MP #### [facility] [address] [place] [address] Dr. Ibis Jimenez Creatinine [Mass/Vol] 0.75 mg/dL Normal 0.55-1.02 [facility] Comment on above: Performed By: #### B MP #### [facility] [address] [place] [address] Dr. Ibis Jimenez EGFR-AF SOUTH AFRICAN >60 Normal >=60 [facility] Comment on above: Performed By: #### B MP #### [facility] [address] [place] [address] Dr. Ibis Jimenez EGFR-NON AF SOUTH AFRICAN >60 Normal >=60 [facility] Comment on above: Performed By: #### B MP #### [facility] [address] [place] [address] Dr. Ibis Jimenez Glucose [Mass/Vol] 107 mg/dL Critically high 74-106 [facility] Comment on above: Performed By: #### B MP #### [facility] [address] [address] [address] Ibis Jimenez Potassium [Moles/Vol] 3.6 mmol/L Normal 3.5-5.1 [facility] Comment on above: Performed By: #### B MP #### [facility] [address] [address] [address] Ibis Jimenez Sodium [Moles/Vol] 140 mmol/L Normal 136-145 [facility] Comment on above: Performed By: #### B MP #### [facility] [address] [address] [address] Ibis Jimenez Urea nitrogen [Mass/Vol] 13.0 mg/dL Normal 7.0-18.0 [facility] Comment on above: Performed By: #### B MP #### [facility] [address] [place] [address] Dr. Ibis Jimenez Urea nitrogen/Creatinine [Mass ratio] 17.3 mg/mg Normal [facility] Comment on above: Performed By: #### B MP #### [facility] [address] [place] [address] Dr. Ibis Jimenez URINE MICROSCOPIC ONLYon BACTERIA TRACE Abnormal NONE SEEN [facility] Comment on above: Performed By: #### B MP #### [facility] [address] [place] [address] Dr. Ibis Jimenez Bacteria identified Cx Nom (U) NOT INDICATED Normal [facility] Comment on above: Performed By: #### B MP #### [facility] [address] [address] [address] Ibis Jimenez CAST NONE SEEN Normal NONE SEEN [facility] Comment on above: Performed By: #### B MP #### [facility] [address] [address] [address] Ibis Jimenez Crystals LM Nom (Urine sed) NONE SEEN Normal NONE SEEN [facility] Comment on above: Performed By: #### B MP #### [facility] [address] [address] [address] Ibis Jimenez Epithelial cells LM Ql (Urine sed) MANY Abnormal NONE SEEN /RARE [facility] Comment on above: Performed By: #### B MP #### [facility] [address] [place], [place] [address] Dr. Ibis Jimenez MUCOUS SMALL Abnormal NONE SEEN [facility] Comment on above: Performed By: #### B MP #### [facility] [address] [place], [place] [address] Dr. Ibis Jimenez RBC 2-5 Abnormal 0-2 [facility] Comment on above: Performed By: #### B MP #### [facility] [address] [place], [place] [address] Dr. Ibis Jimenez WBC 2-5 Abnormal NONE SEEN [facility] Comment on above: Performed By: #### B MP #### [facility] [id number] Ibis Jimenez CBC Auto DifferentialOrdered By: Keven Ching on 12-24-2020 Absolute Eos # 0.44 [employer] [facility] Work Phone: Absolute Immature Granulocyte 0.05 [employer] Work Phone: Absolute Lymph # 2.48 [employer] [facility] Work Phone: Absolute [place] # 0.55 [employer] [facility] Work Phone: Basophils (Bld) [#/Vol] 10*3/uL [employer] Work Phone: Basophils/100 WBC (Bld) 0 % 0 - 2 % [employer] Work Phone: Differential Type NOT REPORTED [employer] Work Phone: Eosinophils/100 WBC (Bld) 5 % High 1 - 4 % [employer] Work Phone: Hematocrit (Bld) [Volume fraction] 37.4 % 36.3 - 47.1 % [employer] Work Phone: Hemoglobin.gastrointes tinal spec 1 Ql (Stl) 12.3 g/dL 11.9 - 15.1 g/dL [employer] Work Phone: Immature granulocytes/100 WBC (Bld) 1 % High 0 [employer] Phone: Interpretation and review of laboratory results Abnormal [employer] Phone: Lymphocytes/100 WBC (Bld) 30 % 24 - 43 % [employer] Phone: MCH (RBC) [Entitic mass] 28.5 pg 25.2 - 33.5 pg [employer] Phone: MCHC (RBC) [Mass/Vol] 32.9 g/dL 28.4 - 34.8 g/dL [employer] Phone: MCV (RBC) [Entitic vol] 86.8 fL 82.6 - 102.9 fL [employer] Phone: Monocytes/100 WBC (Bld) 7 % 3 - 12 % [employer] Phone: NRBC Automated 0.0 0.0 per 100 WBC [employer] Phone: Platelet distribution width (Bld) [Ratio] 12.7 % 11.8 - 14.4 % [employer] Phone: Platelet Estimate NOT REPORTED [employer] Phone: Platelet mean volume (Bld) [Entitic vol] 9.4 fL 8.1 - 13.5 fL [employer] Phone: Platelets (Bld) [#/Vol] 252 10*3/uL [employer] Phone: RBC (Bld) [#/Vol] 4.31 10*6/uL 3.95 - 5.1 1 m/uL [employer] Phone: RBC (Bld) [#/Vol] NOT REPORTED [employer] Phone: Segmented neutrophils/100 WBC (Bld) 57 % 36 - 65 % [employer] Phone: Segs Absolute 4.78 [employer] Work Phone: WBC (Bld) [#/Vol] 8.3 10*3/uL [facility] Work Phone: WBC (Bld) [#/Vol] NOT REPORTED [facility] Work Phone: [facility] Work Phone: CBC with Diffon 12-24-2020 Abs. Basophil <0.03 Normal 0.00-0.20 [facility] Comment on above: Performed By: #### C MPX, CDP #### [address] [place] [id number] Motor Vehicle Examiner: Souleymane Pineda MD Abs.Imm.Granulocyte 0.05 k/uL Normal 0.00-0.30 [facility] Comment on above: Performed By: #### C MPX, CDP #### [address] [place], [place] [id number] Motor Vehicle Examiner: Souleymane Pineda MD Abs.Neutrophil (Seg) 4.78 k/uL Normal 1.50-8.10 [facility] Comment on above: Performed By: #### C MPX, CDP #### [address] [place], [place] [id number] Motor Vehicle Examiner: Souleymane Pineda MD Basophils/100 WBC (Bld) 0 % Normal 0-2 [facility] Comment on above: Performed By: #### C MPX, CDP #### [address] [place], [place] [id number] Motor Vehicle Examiner: Souleymane Pineda MD Eosinophils (Bld) [#/Vol] 0.44 10*3/uL Normal 0.00-0.44 [facility] Comment on above: Performed By: #### C MPX, CDP #### [address] [place] [id number] Motor Vehicle Examiner: Souleymane Pineda MD Eosinophils/100 WBC (Bld) 5 % High 1-4 [facility] Comment on above: Performed By: #### C MPX, CDP #### [facility] [address] [place], [place] [id number] Motor Vehicle Examiner: Souleymane Pineda MD Erythrocyte distribution width (RBC) [Ratio] 12.7 % Normal 11.8-14.4 [facility] Comment on above: Performed By: #### C MPX, CDP #### [address] [place], [place] [id number] Motor Vehicle Examiner: Souleymane Pineda MD Hematocrit (Bld) [Volume fraction] 37.4 % Normal 36.3-47.1 [facility] Comment on above: Performed By: #### C MPX, CDP #### [address] [place], [place] [id number] Motor Vehicle Examiner: Souleymane Pineda MD Hemoglobin (Bld) [Mass/Vol] 12.3 g/dL Normal 11.9-15.1 [facility] Comment on above: Performed By: #### C MPX, CDP #### [address] [place], [place] [id number] Motor Vehicle Examiner: Souleymane Pineda MD Immature granulocytes/100 WBC (Bld) 1 % High 0 [facility] Comment on above: Performed By: #### C MPX, CDP #### [address] [place], [place] [id number] Motor Vehicle Examiner: Souleymane Pineda MD Lymphocytes (Bld) [#/Vol] 2.48 10*3/uL Normal 1.10-3.70 [facility] Comment on above: Performed By: #### C MPX, CDP #### [facility] [address] [place] [id number] Motor Vehicle Examiner: Souleymane Pineda MD Lymphocytes/100 WBC (Bld) 30 % Normal 24-43 [facility] Comment on above: Performed By: #### C MPX, CDP #### [facility] [address] [place] [address] Dr[address] [place], [place] [id number] Motor Vehicle Examiner: Souleymane Pineda MD MCH (RBC) [Entitic mass] 28.5 pg Normal 25.2-33.5 [facility] Comment on above: Performed By: #### C MPX, CDP #### [address] [place], [facility]83 Motor Vehicle Examiner: Souleymane Pineda MD MCHC (RBC) [Mass/Vol] 32.9 g/dL Normal 28.4-34.8 [facility] Comment on above: Performed By: #### C MPX, CDP #### [address] [place] [id number] Motor Vehicle Examiner: Souleymane Pineda MD MCV (RBC) [Entitic vol] 86.8 fL Normal 82.6-102.9 [facility] Comment on above: Performed By: #### C MPX, CDP #### [address] [place], [place] [id number] Motor Vehicle Examiner: Souleymane Pineda MD Monocytes (Bld) [#/Vol] 0.55 10*3/uL Normal 0.10-1.20 [facility] Comment on above: Performed By: #### C MPX, CDP #### [address] [place], [place] [id number] Motor Vehicle Examiner: Souleymane Pineda MD Monocytes/100 WBC (Bld) 7 % Normal 3-12 [facility] Comment on above: Performed By: #### C MPX, CDP #### [address] [place] [id number] Motor Vehicle Examiner: Souleymane Pineda MD Neutrophil (Seg) 57 % Normal 36-65 [facility] Comment on above: Performed By: #### C MPX, CDP #### [address] [place] [id number] Motor Vehicle Examiner: Souleymane Pineda MD NRBC Automated 0.0 per 100 WBC Normal 0.0 [facility] Comment on above: Performed By: #### C MPX, CDP #### [facility] [address] [place], [place] [id number] Motor Vehicle Examiner: Souleymane Pineda MD Platelet mean volume (Bld) [Entitic vol] 9.4 fL Normal 8.1-13.5 [facility] Comment on above: Performed By: #### C MPX, CDP #### [facility] [address] [place], [place] [id number] Motor Vehicle Examiner: Souleymane Pinead MD Platelets (Bld) [#/Vol] 252 10*3/uL Normal 138-453 [facility] Comment on above: Performed By: #### C MPX, CDP #### [facility] [address] [place], [place] [id number] Motor Vehicle Examiner: Souleymane Pineda MD RBC (Bld) [#/Vol] 4.31 10*6/uL Normal 3.95-5.11 [facility] Comment on above: Performed By: #### C MPX, CDP #### [facility] [address] [place], [place] [id number] Motor Vehicle Examiner: Souleymane Pineda MD WBC (Bld) [#/Vol] 8.3 10*3/uL Normal 3.5-11.3 [facility] Comment on above: Performed By: #### C MPX, CDP #### [facility] [address] [place], [place] [id number] Motor Vehicle Examiner: Souleymane Pineda MD Auto Diff Performed NOT REPORTED Normal [facility] Comment on above: Performed By: #### C MPX, CDP #### [facility] [address] [place], [place] [id number] Motor Vehicle Examiner: Souleymane Pineda MD Platelet Comment NOT REPORTED Normal [facility] Comment on above: Performed By: #### C MPX, CDP #### [facility] [address] [place] [id number] Motor Vehicle Examiner: Souleymane Pineda MD RBC morphology finding Nom (Bld) NOT REPORTED Normal [facility] Comment on above: Performed By: #### C MPX, CDP #### [facility] [address] [place] [address] Motor Vehicle Examiner: Souleymane Pineda MD WBC Morphology NOT REPORTED Normal [facility] Comment on above: Performed By: #### C MPX, CDP #### [facility] [address] [place] [address] Motor Vehicle Examiner: Souleymane Pineda MD CT HEAD WO CONTRASTon [...] the orbits demonstrate no acute abnormality. SINUSES: Upqa-mf-podlncii paranasal sinus mucosal thickening. SOFT TISSUES/SKULL: No acute abnormality of the visualized skull or soft tissues. IMPRESSION: No acute intracranial abnormality. Interpreted by: Edwin Bentley MD Signed by: Edwin Bentley MD 12/24/20 Final result Normal [facility] CT Head WO ContrastOrdered B y: Keven Joshua on 12-24-2020 No acute intracranial abnormality. [facility] Work Phone: EXAMINATION: CT OF THE HEAD [...] the orbits demonstrate no acute abnormality. SINUSES: Ozmi-np-ckwhkwlc paranasal sinus mucosal thickening. SOFT TISSUES/SKULL: No acute abnormality of the visualized skull or soft tissues. [employer] Phone: Dimitri, [facility] Incoming Radiant Results From [employer] - 12/24/2020 8:49 PM EDT EXAMINATION: CT [...] the orbits demonstrate no acute abnormality. SINUSES: Ualy-by-zenxfxze paranasal sinus mucosal thickening. SOFT TISSUES/SKULL: No acute abnormality of the visualized skull or soft tissues. IMPRESSION: No acute intracranial abnormality. [employer] Phone: [employer] Phone: Comp Metabolic Pr/rfx MGon 1 02-24-2020 Bilirubin [Mass/Vol] mg/dL Low 0.3-1.2 [facility] Comment on above: Performed By: #### C MPX, CDP #### [facility] [address] [place], [place] [id number] Motor Vehicle Examiner: Souleymane Pineda MD (cont.) Normal [facility] Comment on above: Result Comment: Aver age GFR for 20-29 years old: 116 mL/min/1.73sq m Chronic Kidney Disease: <60 mL/min/1.73sq m Kidney failure: <15 mL/min/1.73sq m eGFR calculated using average adult body mass. Additional eGFR calculator available at: http://www.[employer]/multiple_crcl_2012.htm Performed By: #### C MPX, CDP #### [facility] [address] [place] [address] Dr[place], [place] [id number] Motor Vehicle Examiner: Souleymane Pineda MD Albumin [Mass/Vol] 4.0 g/dL Normal 3.5-5.2 [facility] Comment on above: Performed By: #### C MPX, CDP #### [facility] [address] [place] [address] Dr. [place], [place] [id number] Motor Vehicle Examiner: Souleymane Pineda MD Albumin/Glob Ratio 1.5 Normal 1.0-2.5 [facility] Comment on above: Performed By: #### C MPX, CDP #### [facility] [address] [place], [place] [id number] Motor Vehicle Examiner: Souleymane Pineda MD Alkaline Phos 90 U/L Normal 35-104 [facility] Comment on above: Performed By: #### C MPX, CDP #### [facility] [address] [place], [place] [id number] Motor Vehicle Examiner: Souleymane Pineda MD ALT [Catalytic activity/Vol] 40 U/L High 5-33 [facility] Comment on above: Performed By: #### C MPX, CDP #### [facility] [address] [place], [place] [id number] Motor Vehicle Examiner: Souleymane Pineda MD Anion gap [Moles/Vol] 11 mmol/L Normal 9-17 [facility] Comment on above: Performed By: #### C MPX, CDP #### [facility] [address] [place], [place] [id number] Motor Vehicle Examiner: Souleymane Pineda MD AST [Catalytic activity/Vol] 19 U/L Normal <32 [facility] Comment on above: Performed By: #### C MPX, CDP #### [facility] [address] [place], [place] [phone] Motor Vehicle Examiner: Souleymane Pineda MD BUN/CRE Ratio 15 Normal 9-20 [facility] Comment on above: Performed By: #### C MPX, CDP #### [facility] [address] [place], [place] [phone] Motor Vehicle Examiner: Souleymane Pineda MD Calcium [Mass/Vol] 8.9 mg/dL Normal 8.6-10.4 [facility] Comment on above: Performed By: #### C MPX, CDP #### [facility] [address] [place], [place] [id number] Motor Vehicle Examiner: Souleymane Pineda MD Chloride [Moles/Vol] 104 mmol/L Normal 98-107 [facility] Comment on above: Performed By: #### C MPX, CDP #### [facility] [address] [place], [place] [phone] Motor Vehicle Examiner: Souleymane Pineda MD CO2 [Moles/Vol] 24 mmol/L Normal 20-31 [facility] Comment on above: Performed By: #### C MPX, CDP #### [facility] [address] [place], [place] [id number] Motor Vehicle Examiner: Souleymane Pineda MD Creatinine [Mass/Vol] 0.60 mg/dL Normal 0.50-0.90 [facility] Comment on above: Performed By: #### C MPX, CDP #### [facility] [address] [place], [place] [id number] Motor Vehicle Examiner: Souleymane Pineda MD GFR, Amer >60 Normal >60 [facility] Comment on above: Performed By: #### C MPX, CDP #### [facility] [address] [place], [place] [phone] Motor Vehicle Examiner: Souleymane Pineda MD GFR,non Amer >60 Normal >60 [facility] Comment on above: Performed By: #### C MPX, CDP #### [facility] [address] [place], [place] [id number] Motor Vehicle Examiner: Souleymane Pineda MD Glucose [Mass/Vol] 91 mg/dL Normal 70-99 [facility] Comment on above: Performed By: #### C MPX, CDP #### [facility] [address] [place], [place] [phone] Motor Vehicle Examiner: Souleymane Pineda MD Potassium [Moles/Vol] 4.0 mmol/L Normal 3.7-5.3 [facility] Comment on above: Performed By: #### C MPX, CDP #### [facility] [address] [place], [place] [phone] Motor Vehicle Examiner: Souleymane Pineda MD Protein [Mass/Vol] 6.7 g/dL Normal 6.4-8.3 [facility] Comment on above: Performed By: #### C MPX, CDP #### [facility] [address] [place], [place] [phone] Motor Vehicle Examiner: Souleymane Pineda MD Sodium [Moles/Vol] 139 mmol/L Normal 135-144 [facility] Comment on above: Performed By: #### C MPX, CDP #### [facility] [address] [place] [address] Motor Vehicle Examiner: Souleymane Pineda MD Staging: Normal [facility] Comment on above: Result Comment: Stag e 1: Some kidney damage normal GFR Stage 2: Mild kidney damage GFR 60-89 Stage 3: Moderate kidney damage GFR 30-59 Stage 4: Severe kidney damage GFR 15-29 Stage 5: Severe kidney damage GFR <15 ESRD - chronic treatment by dialysis or transplant Performed By: #### C MPX, CDP #### [facility] [address] [place] [address] Motor Vehicle Examiner: Souleymane Pineda MD Urea nitrogen [Mass/Vol] 9 mg/dL Normal 6-20 [facility] Comment on above: Performed By: #### C MPX, CDP #### [facility] [address] [place] [address] Motor Vehicle Examiner: Souleymane Pineda MD Comprehensive Metabolic Pane l w/ Reflex to MGOrdered By: Keven Ching on 12-24-2020 Albumin [Mass/Vol] 4 g/dL 3.5 - 5.2 g/dL [employer] Phone: Albumin/Globulin [Mass ratio] 1.5 {ratio} [employer] Phone: ALP (Bld) [Catalytic activity/Vol] 90 U/L 35 - 104 U/L [employer] Phone: ALT [Catalytic activity/Vol] 40 U/L High 5 - 33 U/L [employer] Phone: Anion gap [Moles/Vol] 11 mmol/L 9 - 17 mmol/L [employer] Phone: AST [Catalytic activity/Vol] 19 U/L <32 [employer] Phone: Bilirubin [Mass/Vol] mg/dL Low 0.3 - 1 .2 mg/dL [employer] Phone: Calcium [Mass/Vol] 8.9 mg/dL 8.6 - 10. 4 mg/dL [employer] Phone: Chloride [Moles/Vol] 104 mmol/L 98 - 10 7 mmol/L [employer] Phone: CO2 [Moles/Vol] 24 mmol/L 20 - 31 mmol/L [employer] Phone: Creatinine [Mass/Vol] 0.6 mg/dL 0.50 - 0.90 mg/dL [employer] Phone: Free PSA/Total PSA [Mass fraction] 6.7 g/dL 6.4 - 8.3 g/dL [employer] Phone: GFR >60 >60 mL/min [employer] Phone: GFR Non- >60 >60 mL/min [employer] Phone: Glucose [Mass/Vol] 91 mg/dL 70 - 99 mg/dL [employer] Phone: Interpretation and review of laboratory results Abnormal [employer] Phone: Potassium [Moles/Vol] 4.0 mmol/L 3.7 - 5.3 mmol/L [employer] Phone: Sodium [Moles/Vol] 139 mmol/L 135 - 144 mmol/L [employer] Phone: Urea nitrogen (BldV) [Mass/Vol] 9 mg/dL 6 - 20 mg/dL [employer] Phone: Urea nitrogen/Creatinine (Bld) [Mass ratio] 15 [employer] Phone: [employer] Phone: Laboratory - Chemistry and C hemistry - challengeOrdered By: Kevne Ching on 12-24-2020 GFR/1.73 sq M.predicted MDRD (S/P/Bld) [Vol rate/Area] [employer] Phone: Comment on above: Average GFR for 20-2 9 years old: 116 mL/min/1.73sq m Chronic Kidney Disease: <60 mL/min/1.73sq m Kidney failure: <15 mL/min/1.73sq m eGFR calculated using average adult body mass. Additional eGFR calculator available at: http://www.[employer].Cardback/multiple_crcl_2012.htm Stage 1: Some kidney damage normal GFR Stage 2: Mild kidney damage GFR 60-89 Stage 3: Moderate kidney damage GFR 30-59 Stage 4: Severe kidney damage GFR 15-29 Stage 5: Severe kidney damage GFR <15 ESRD - chronic treatment by dialysis or transplant Vital Signs Date Time Vital Sign Value Performing Clinician Facility 04-15-2024 09:16-0500 Diastolic blood pressure 76 mm[Hg] Svetlana Ye PA Work Phone: [facility] 04-15-2024 09:16-0500 Heart rate 88 /min Svetlana Ye PA Work Phone: [facility] 04-15-2024 09:16-0500 Respiratory rate 16 /min Svetlana Stewartne PA Work Phone: [facility] 04-15-2024 09:16-0500 SaO2% (BldA) [Mass fraction] 96 % Svetlana Ye PA Work Phone: [facility] 04-15-2024 09:16-0500 Systolic blood pressure 122 mm[Hg] Svetlana Ye PA Work Phone: [facility] 04-15-2024 09:01-0500 Body height 154.9 cm Svetlana Stewartne PA Work Phone: [facility] 04-15-2024 09:01-0500 Body mass index (BMI) [Ratio] 45.83 kg/m2 Svetlana Stewartne PA Work Phone: [facility] 04-15-2024 09:01-0500 Body weight 109.95 kg Svetlana Ye PA Work Phone: [facility] 04-10-2024 11:09-0500 Body temperature 97.5 [degF] Milad Hernandez MD Work Phone: [facility] 04-10-2024 11:09-0500 Diastolic blood pressure 63 mm[Hg] Milad Hernandez MD Work Phone: [facility] 04-10-2024 11:09-0500 Heart rate 90 /min Milad Hernandez MD Work Phone: [facility] 04-10-2024 11:09-0500 Respiratory rate 18 /min Milad Hernandez MD Work Phone: [facility] 04-10-2024 11:09-0500 SaO2% (BldA) [Mass fraction] 95 % Milad Hernandez MD Work Phone: [facility] 04-10-2024 11:09-0500 Systolic blood pressure 117 mm[Hg] Milad Hernandez MD Work Phone: [facility] 04-10-2024 05:25-0500 Body mass index (BMI) [Ratio] 47.4 kg/m2 Milad Hernandez MD Work Phone: [facility] 04-10-2024 05:25-0500 Body weight 113.8 kg Milad Hernandez MD Work Phone: [facility] 04-02-2024 13:07-0500 Body mass index (BMI) [Ratio] 45.73 kg/m2 Zay Roopa DO Work Phone: [facility] 04-02-2024 13:07-0500 Body weight 109.77 kg Zay Roopa DO Work Phone: [facility] 04-02-2024 13:07-0500 Diastolic blood pressure 90 mm[Hg] Zay Roopa DO Work Phone: [facility] 04-02-2024 13:07-0500 Systolic blood pressure 130 mm[Hg] Zay Roopa DO Work Phone: [facility] 03-25-2024 15:21-0500 Body temperature 98.2 [degF] [facility] 03-25-2024 15:21-0500 Diastolic blood pressure 62 mm[Hg] [facility] 03-25-2024 15:21-0500 Heart rate 86 /min [facility] 03-25-2024 15:21-0500 Respiratory rate 20 /min [facility] 03-25-2024 15:21-0500 SaO2% (BldA) [Mass fraction] 99 % [facility] 03-25-2024 15:21-0500 Systolic blood pressure 132 mm[Hg] [facility] 03-25-2024 14:58-0500 Body height 154.9 cm [facility] 03-25-2024 14:58-0500 Body mass index (BMI) [Ratio] 45.57 kg/m2 [facility] 03-25-2024 14:58-0500 Body weight 109.4 kg [facility] 03-20-2024 12:15-0500 Body height 154.9 cm Mariah Peña DO Work Phone: [facility] 03-20-2024 12:15-0500 Body mass index (BMI) [Ratio] 45.54 kg/m2 Mariah Sanchezton DO Work Phone: [facility] 03-20-2024 12:15-0500 Body weight 109.32 kg Mariah Peña DO Work Phone: [facility] 03-20-2024 12:15-0500 Diastolic blood pressure 80 mm[Hg] Mariah Sanchezton DO Work Phone: [facility] 03-20-2024 12:15-0500 Heart rate 97 /min Mariah Peña DO Work Phone: [facility] 03-20-2024 12:15-0500 SaO2% (BldA) [Mass fraction] 98 % Mariah Peña DO Work Phone: [facility] 03-20-2024 12:15-0500 Systolic blood pressure 129 mm[Hg] Mariah Peña DO Work Phone: [facility] 03-20-2024 12:07-0500 Body height 154.9 cm [facility] 3 [facility] 03-20-2024 12:07-0500 Body mass index (BMI) [Ratio] 45.54 kg/m2 [facility] 3 [facility] 03-20-2024 12:07-0500 Body weight 109.32 kg [facility] 3 [facility] 03-18-2024 11:03-0500 Body height 154.9 cm Mundo Martinez MD Work Phone: [facility] 03-18-2024 11:03-0500 Body mass index (BMI) [Ratio] 45.69 kg/m2 Mundo Martinez MD Work Phone: [facility] 03-18-2024 11:03-0500 Body temperature 97.9 [degF] Mundo Martinez MD Work Phone: [facility] 03-18-2024 11:03-0500 Body weight 109.68 kg Mundo Martinez MD Work Phone: [facility] 03-18-2024 11:03-0500 Heart rate 77 /min Mundo Martinez MD Work Phone: [facility] 03-18-2024 11:03-0500 SaO2% (BldA) [Mass fraction] 99 % Mundo Martinez MD Work Phone: [facility] 03-06-2024 10:45-0500 Body mass index (BMI) [Ratio] 45.69 kg/m2 Zay Roopa DO Work Phone: [facility] 03-06-2024 10:45-0500 Body weight 109.68 kg Zay Roopa DO Work Phone: [facility] 03-06-2024 10:45-0500 Diastolic blood pressure 84 mm[Hg] Zay Roopa DO Work Phone: [facility] 03-06-2024 10:45-0500 Systolic blood pressure 122 mm[Hg] Zay Roopa DO Work Phone: [facility] 02-28-2024 11:25-0500 Body mass index (BMI) [Ratio] 47.31 kg/m2 Zay Roopa DO Work Phone: [facility] 02-28-2024 11:25-0500 Body weight 113.58 kg Zay Roopa DO Work Phone: [facility] 02-28-2024 11:25-0500 Diastolic blood pressure 80 mm[Hg] Zay Roopa DO Work Phone: [facility] 02-28-2024 11:25-0500 Systolic blood pressure 126 mm[Hg] Zay Roopa DO Work Phone: [facility] 02-09-2024 10:38-0500 Body height 154.9 cm Lamont Shay MD Work Phone: [facility] 02-09-2024 10:38-0500 Body mass index (BMI) [Ratio] 49.13 kg/m2 Lamont Shay MD Work Phone: [facility] 02-09-2024 10:38-0500 Body temperature 98.01 [degF] Lamont Shay MD Work Phone: [facility] 02-09-2024 10:38-0500 Body weight 117.94 kg Lamont Shay MD Work Phone: [facility] 02-09-2024 10:38-0500 Diastolic blood pressure 58 mm[Hg] Lamont Shay MD Work Phone: [facility] 02-09-2024 10:38-0500 Heart rate 111 /min Lamont Shay MD Work Phone: [facility] 02-09-2024 10:38-0500 Respiratory rate 22 /min Lamont Shay MD Work Phone: [facility] 02-09-2024 10:38-0500 SaO2% (BldA) [Mass fraction] 90 % Lamont Shay MD Work Phone: [facility] 02-09-2024 10:38-0500 Systolic blood pressure 118 mm[Hg] Lamont Shay MD Work Phone: [facility] 01-23-2024 13:28-0500 Body height 154.9 cm Lamont Shay MD Work Phone: [facility] 01-23-2024 13:28-0500 Body mass index (BMI) [Ratio] 52.91 kg/m2 Lamont Shay MD Work Phone: [facility] 01-23-2024 13:28-0500 Body temperature 98.4 [degF] Lamont Shay MD Work Phone: [facility] 01-23-2024 13:28-0500 Body weight 127.01 kg Lamont Shay MD Work Phone: [facility] 01-23-2024 13:28-0500 Diastolic blood pressure 74 mm[Hg] Lamont Shay MD Work Phone: [facility] 01-23-2024 13:28-0500 Heart rate 123 /min Lamont Shay MD Work Phone: [facility] 01-23-2024 13:28-0500 Respiratory rate 26 /min Lamont Shay MD Work Phone: [facility] 01-23-2024 13:28-0500 SaO2% (BldA) [Mass fraction] 87 % Lamont Shay MD Work Phone: [facility] 01-23-2024 13:28-0500 Systolic blood pressure 128 mm[Hg] Lamont Shay MD Work Phone: [facility] 01-22-2024 15:39-0500 Diastolic blood pressure 82 mm[Hg] Infusion 1 Work Phone: [facility] 01-22-2024 15:39-0500 Heart rate 97 /min Infusion 1 Work Phone: [facility] 01-22-2024 15:39-0500 Systolic blood pressure 135 mm[Hg] Infusion 1 Work Phone: [facility] 01-22-2024 13:35-0500 SaO2% (BldA) [Mass fraction] 97 % Infusion 1 Work Phone: [facility] Comment on above: on room air 01-19-2024 11:28-0500 Diastolic blood pressure 75 mm[Hg] Infusion 5 Work Phone: [facility] 01-19-2024 11:28-0500 Heart rate 88 /min Infusion 5 Work Phone: [facility] 01-19-2024 11:28-0500 Systolic blood pressure 126 mm[Hg] Infusion 5 Work Phone: [facility] 01-19-2024 10:00-0500 Body temperature 97.3 [degF] Infusion 5 Work Phone: [facility] 01-17-2024 11:09-0500 Diastolic blood pressure 69 mm[Hg] Infusion 6 Work Phone: [facility] 01-17-2024 11:09-0500 Heart rate 85 /min Infusion 6 Work Phone: [facility] 01-17-2024 11:09-0500 Systolic blood pressure 129 mm[Hg] Infusion 6 Work Phone: [facility] 01-09-2024 09:18-0500 Body height 154.9 cm Lamont Shay MD Work Phone: [facility] 01-09-2024 09:18-0500 Body mass index (BMI) [Ratio] 53.66 kg/m2 Lamont Shay MD Work Phone: [facility] 01-09-2024 09:18-0500 Body temperature 98.01 [degF] Lamont Shay MD Work Phone: [facility] 01-09-2024 09:18-0500 Body weight 128.82 kg Lamont Shay MD Work Phone: [facility] 01-09-2024 09:18-0500 Diastolic blood pressure 72 mm[Hg] Lamont Shay MD Work Phone: [facility] 01-09-2024 09:18-0500 Heart rate 101 /min Lamont Shay MD Work Phone: [facility] 01-09-2024 09:18-0500 Respiratory rate 20 /min Lamont Shay MD Work Phone: [facility] 01-09-2024 09:18-0500 SaO2% (BldA) [Mass fraction] 90 % Lamont Shay MD Work Phone: [facility] 01-09-2024 09:18-0500 Systolic blood pressure 140 mm[Hg] Lamont Shay MD Work Phone: [facility] 01-05-2024 13:38-0500 Diastolic blood pressure 83 mm[Hg] Infusion 8 Work Phone: [facility] 01-05-2024 13:38-0500 Heart rate 105 /min Infusion 8 Work Phone: [facility] 01-05-2024 13:38-0500 Systolic blood pressure 139 mm[Hg] Infusion 8 Work Phone: [facility] 11-15-2023 09:05-0400 Body height 154.9 cm Lamont Shay MD Work Phone: [facility] 11-15-2023 09:05-0400 Body mass index (BMI) [Ratio] 51.58 kg/m2 Lamont Shay MD Work Phone: [facility] 11-15-2023 09:05-0400 Body temperature 97.81 [degF] Lamont Shay MD Work Phone: [facility] 11-15-2023 09:05-0400 Body weight 123.83 kg Lamont Shay MD Work Phone: [facility] 11-15-2023 09:05-0400 Diastolic blood pressure 66 mm[Hg] Lamont Shay MD Work Phone: [facility] 11-15-2023 09:05-0400 Heart rate 60 /min Lamont Shay MD Work Phone: [facility] 11-15-2023 09:05-0400 Respiratory rate 24 /min Lamont Shay MD Work Phone: [facility] 11-15-2023 09:05-0400 Systolic blood pressure 126 mm[Hg] Lamont Shay MD Work Phone: [facility] 10-13-2023 13:51-0400 Diastolic blood pressure 74 mm[Hg] Infusion 8 Work Phone: [facility] 10-13-2023 13:51-0400 Heart rate 77 /min Infusion 8 Work Phone: [facility] 10-13-2023 13:51-0400 Systolic blood pressure 134 mm[Hg] Infusion 8 Work Phone: [facility] 10-10-2023 09:25-0400 Body height 154.9 cm Lamont Shay MD Work Phone: [facility] 10-10-2023 09:25-0400 Body mass index (BMI) [Ratio] 48.94 kg/m2 Lamont Shay MD Work Phone: [facility] 10-10-2023 09:25-0400 Body temperature 97.5 [degF] Lamont Shay MD Work Phone: [facility] 10-10-2023 09:25-0400 Body weight 117.48 kg Lamont Shay MD Work Phone: [facility] 10-10-2023 09:25-0400 Diastolic blood pressure 78 mm[Hg] Lamont Shay MD Work Phone: [facility] 10-10-2023 09:25-0400 Heart rate 88 /min Lamont Shay MD Work Phone: [facility] 10-10-2023 09:25-0400 Respiratory rate 22 /min Lamont Shay MD Work Phone: [facility] 10-10-2023 09:25-0400 SaO2% (BldA) [Mass fraction] 95 % Lamont Shay MD Work Phone: [facility] 10-10-2023 09:25-0400 Systolic blood pressure 116 mm[Hg] Lamont Shay MD Work Phone: [facility] 09-19-2023 14:22-0400 Body height 158.4 cm Koli Green RELATIONSHIP ADVISOR.INTENSIVE CARE UNIT NURSE Work Phone: [facility] 09-19-2023 14:22-0400 Body mass index (BMI) [Ratio] 47.33 kg/m2 Koli Green RELATIONSHIP ADVISOR.INTENSIVE CARE UNIT NURSE Work Phone: [facility] 09-19-2023 14:22-0400 Body temperature 99.1 [degF] Koli Green RELATIONSHIP ADVISOR.INTENSIVE CARE UNIT NURSE Work Phone: [facility] 09-19-2023 14:22-0400 Body weight 118.75 kg Koli Green RELATIONSHIP ADVISOR.INTENSIVE CARE UNIT NURSE Work Phone: [facility] 09-19-2023 14:22-0400 Diastolic blood pressure 81 mm[Hg] Koli Green RELATIONSHIP ADVISOR.INTENSIVE CARE UNIT NURSE Work Phone: [facility] 09-19-2023 14:22-0400 Heart rate 80 /min Koli Green RELATIONSHIP ADVISOR.INTENSIVE CARE UNIT NURSE Work Phone: [facility] 09-19-2023 14:22-0400 Systolic blood pressure 115 mm[Hg] Cameroni Green RELATIONSHIP ADVISOR.INTENSIVE CARE UNIT NURSE Work Phone: [facility] 08-18-2023 09:26-0400 Diastolic blood pressure 51 mm[Hg] Curtis Lepe PA-C Work Phone: [facility] 08-18-2023 09:26-0400 Heart rate 88 /min Curtis Lepe PA-C Work Phone: [facility] 08-18-2023 09:26-0400 SaO2% (BldA) [Mass fraction] 97 % Curtis Lepe PA-C Work Phone: [facility] 08-18-2023 09:26-0400 Systolic blood pressure 116 mm[Hg] Curtis Lepe PA-C Work Phone: [facility] 04-14-2023 11:08-0500 Diastolic blood pressure 62 mm[Hg] Infusion 7 Work Phone: [facility] 04-14-2023 11:08-0500 Heart rate 84 /min Infusion 7 Work Phone: [facility] 04-14-2023 11:08-0500 Systolic blood pressure 109 mm[Hg] Infusion 7 Work Phone: [facility] 04-13-2023 10:50-0500 Diastolic blood pressure 63 mm[Hg] Infusion 7 Work Phone: [facility] 04-13-2023 10:50-0500 Heart rate 86 /min Infusion 7 Work Phone: [facility] 04-13-2023 10:50-0500 Systolic blood pressure 127 mm[Hg] Infusion 7 Work Phone: [facility] 04-12-2023 13:45-0500 Diastolic blood pressure 58 mm[Hg] Infusion 7 Work Phone: [facility] 04-12-2023 13:45-0500 Heart rate 79 /min Infusion 7 Work Phone: [facility] 04-12-2023 13:45-0500 Systolic blood pressure 120 mm[Hg] Infusion 7 Work Phone: [facility] 11-11-2022 10:55-0400 Diastolic blood pressure 63 mm[Hg] Infusion 8 Work Phone: [facility] 11-11-2022 10:55-0400 Heart rate 83 /min Infusion 8 Work Phone: [facility] 11-11-2022 10:55-0400 Systolic blood pressure 110 mm[Hg] Infusion 8 Work Phone: [facility] 07-28-2022 10:15-0400 Diastolic blood pressure 50 mm[Hg] Infusion 8 Work Phone: [facility] 07-28-2022 10:15-0400 Heart rate 80 /min Infusion 8 Work Phone: [facility] 07-28-2022 10:15-0400 Systolic blood pressure 105 mm[Hg] Infusion 8 Work Phone: [facility] 12-03-2021 09:47-0400 Diastolic blood pressure 81 mm[Hg] Jesse Borrego MD Work Phone: [facility] 12-03-2021 09:47-0400 Heart rate 66 /min Jesse Borrego MD Work Phone: [facility] 12-03-2021 09:47-0400 SaO2% (BldA) [Mass fraction] 100 % Jesse Borrego MD Work Phone: [facility] 12-03-2021 09:47-0400 Systolic blood pressure 131 mm[Hg] Jesse Borrego MD Work Phone: [facility] 10-20-2021 12:00-0400 Diastolic blood pressure 101 mm[Hg] Lucila Mota MD Work Phone: [facility] [employer] 10-20-2021 12:00-0400 Heart rate 85 /min Lucila Mota MD Work Phone: [facility] [employer] 10-20-2021 12:00-0400 Respiratory rate 12 /min Lucila Mota MD Work Phone: [facility] [employer] 10-20-2021 12:00-0400 SaO2% (BldA) [Mass fraction] 98 % Lucila Mota MD Work Phone: [facility] [employer] 10-20-2021 12:00-0400 Systolic blood pressure 136 mm[Hg] Lucila Mota MD Work Phone: [facility] [employer] 10-20-2021 08:00-0400 Body temperature 98.2 [degF] Lucila Mota MD Work Phone: [facility] [employer] 12-24-2020 19:36-0400 Body temperature 99 [degF] Keven Ching DO Work Phone: [employer] Phone: 12-24-2020 19:36-0400 Diastolic blood pressure 80 mm[Hg] Keven Ching DO Work Phone: [employer] Work Phone: 12-24-2020 19:36-0400 Heart rate 108 /min Keven Ching DO Work Phone: [employer] Work Phone: 12-24-2020 19:36-0400 Respiratory rate 20 /min Keven Ching DO Work Phone: [employer] Work Phone: 12-24-2020 19:36-0400 SaO2% (BldA) [Mass fraction] 96 % Keven Ching DO Work Phone: [employer] Phone: 12-24-2020 19:36-0400 Systolic blood pressure 136 mm[Hg] Keven Ching DO Work Phone: [employer] Phone: Encounters Encounter Date Encounter Type Care Provider Facility Start: 04-16-2024 End: 04-16-2024 Bamboo flowsheet Zay Roopa DO Work Phone: [facility] Start: 04-16-2024 End: 04-18-2024 Bamboo flowsheet Zay Roopa DO Work Phone: [facility] Start: 04-16-2024 End: 04-18-2024 Clinisync Result Encounter Generic External Data Provider [facility] External Department Unsolicited Start: 04-16-2024 End: 04-16-2024 ambulatory ZAY ROOPA Not Available Start: 04-16-2024 End: 04-16-2024 Patient encounter procedure Zay Roopa DO Work Phone: [facility] Work Phone: Start: 04-16-2024 End: 04-16-2024 Periodic preventive med est patient 18-39 yrs Zay Roopa DO Work Phone: [facility] Comment on above: Well woman exam with routine gynecological exam Start: 04-15-2024 End: 04-15-2024 Postop follow up visit related to original px Svetlana HERNANDEZ Work Phone: [facility] Gyne[facility] Oncology, A Department of [facility] Comment on above: Postoperative surgic al complication involving genitourinary system associated with genitourinary procedure, unspecified complication (Primary Dx); Post-op pain; Sweating profusely; Menopausal symptoms; Nausea and vomiting, unspecified vomiting type Start: 04-13-2024 ambulatory NON STAFF Facility:[facility] Start: 04-08-2024 End: 04-08-2024 Telephone encounter Sofia Ku [facility] Gynecology Oncology, A Department of [facility] Start: 04-08-2024 End: 04-10-2024 Evaluation and management of inpatient Yordy Melton DO Work Phone: [facility] - GEN 6 Acute Comment on above: Postoperative surgic al complication involving genitourinary system associated with genitourinary procedure, unspecified complication (Primary Dx) Start: 04-02-2024 End: 04-02-2024 ambulatory ZAY ROOPA Not Available Start: 04-02-2024 End: 04-02-2024 Office outpatient visit 10 minutes Zay Roopa DO Work Phone: [facility] Comment on above: Visit for wound chec k; Yeast infection Start: 04-01-2024 End: 04-01-2024 Orders Only Svetlana HERNANDEZ Work Phone: [facility], A Department of [facility] Comment on above: S/P bilateral salpin go-oophorectomy Post-op pain (Primar y Dx) Start: 03-25-2024 End: 03-25-2024 Patient encounter status Metro 3 [facility] [employer] [facility] Start: 03-25-2024 End: 03-25-2024 Orders Only Mundo Martinez MD Work Phone: [facility], A Department of [facility] Comment on above: Preop testing (Prima ry Dx); Bilateral ovarian cysts Start: 03-21-2024 End: 03-21-2024 Telephone encounter Mundo Martinez MD Work Phone: [facility], A Department of [facility] Comment on above: Other (Surgery quest ions) Start: 03-21-2024 End: 03-21-2024 ambulatory Sagar Barth INTENSIVE CARE UNIT NURSE Work Phone: Neurology [facility] Comment on above: Intractable chronic migraine without aura and without status migrainosus (Primary Dx) Start: 03-21-2024 End: 03-21-2024 Telemedicine consultation with patient Sagar Barth RELATIONSHIP ADVISOR.INTENSIVE CARE UNIT NURSE Work Phone: Neurology [facility] Start: 03-20-2024 End: 03-20-2024 Office outpatient new 45 minutes Mariah Peña DO Work Phone: [facility] Comment on above: Asthma, unspecified asthma severity, unspecified whether complicated, unspecified whether persistent (Primary Dx); Bilateral ovarian cysts; Moderate asthma with acute exacerbation, unspecified whether persistent; Encounter for preoperative pulmonary examination; Pulmonary nodule; Gastroesophageal reflux disease, unspecified whether esophagitis present Start: 03-20-2024 End: 03-20-2024 Preoperative state Mundo Martinez MD Work Phone: [facility] [employer] Start: 03-20-2024 End: 03-20-2024 Orders Only Mundo Martinez MD Work Phone: [facility], A Department of [facility] Comment on above: Bilateral ovarian cy sts (Primary Dx); Moderate asthma with acute exacerbation, unspecified whether persistent; Encounter for preoperative pulmonary examination Acute cough [R05.1] (Primary Dx) Start: 03-19-2024 End: 03-19-2024 Orders Only Mundo Martinez MD Work Phone: [facility], A Department of [facility] Comment on above: Bilateral ovarian cy sts (Primary Dx); Preop testing Start: 03-19-2024 End: 03-19-2024 Patient encounter status Mundo Martinez MD Work Phone: [facility] Start: 03-18-2024 End: 03-18-2024 Office outpatient new 60 minutes Mundo Martinez MD Work Phone: [facility]cology, A Department of [facility] Comment on above: Cyst of right ovary (Primary Dx) Start: 03-06-2024 End: 03-06-2024 Office outpatient visit 15 minutes Zay Roopa DO Work Phone: [facility] Comment on above: Cyst of [...] FM Start: 02-22-2024 End: 02-22-2024 Telephone encounter Sagar Barth APRN.INTENSIVE CARE UNIT NURSE Work Phone: Neurology Headache [facility] Comment on above: Insurance Authorizat ion (Zolmitriptan) Start: 02-16-2024 End: 02-16-2024 ambulatory Dariusz Estrada Facility:[facility] Start: 02-09-2024 End: 02-09-2024 Office outpatient visit 25 minutes Lamont Shay MD Work Phone: [facility] Comment on above: Generalized abdomina l pain (Primary Dx); Intractable nausea and vomiting; Mild persistent asthma with (acute) exacerbation (CMS/HCC) Start: 02-09-2024 End: 02-09-2024 ambulatory LAMONT SHAY Not Available Start: 01-31-2024 End: 02-02-2024 Clinisync Result Encounter Generic External Data Provider [facility] External [facility] Unsolicited Start: 01-31-2024 End: 02-02-2024 Clinisync Result Encounter Generic External Data Provider [facility] External Department Unsolicited Start: 01-29-2024 End: 01-30-2024 Telephone encounter Sagar Barth APRN.INTENSIVE CARE UNIT NURSE Work Phone: Neurology Head[facility] Start: 01-24-2024 End: 01-24-2024 Orders Only [...] Start: 01-22-2024 End: 01-22-2024 Patient encounter procedure Lucillecharlotte Albertekta HECK.INTENSIVE CARE UNIT NURSE Work Phone: Neurology Comment on above: [...] status migrainosus Start: 01-16-2024 End: 01-16-2024 ambulatory Sagar Barth APRN.INTENSIVE CARE UNIT NURSE Work Phone: Neurology Head[facility] Comment on above: Please help Start: 01-09-2024 End: 01-09-2024 Robinson Shay MD Work Phone: [facility] Start: 01-09-2024 End: 01-09-2024 Robinson Shay MD Work Phone: [facility] [...] 12-05-2023 End: 12-05-2023 ambulatory Ольга J Harika RELATIONSHIP ADVISOR.INTENSIVE CARE UNIT NURSE Work Phone: Neurology Comment on above: Intractable chronic migraine without aura and without status migrainosus (Primary Dx) Start: 12-05-2023 End: 12-05-2023 Telemedicine consultation with patient Олгьа Lantigua Harika RELATIONSHIP ADVISOR.INTENSIVE CARE UNIT NURSE Work Phone: Neurology Start: 11-15-2023 End: 11-15-2023 [...] 11-06-2023 End: 11-06-2023 Orders Only Ronit Mustafa NP Work Phone: [facility] Comment [...] Dx); Mild persistent asthma with (acute) exacerbation (CMS/HCC) Start: 10-10-2023 End: 10-10-2023 ambulatory LAMONT SHAY Not Available Start: 09-25-2023 End: 09-25-2023 ambulatory ZAY BLAS Not Available Start: 09-19-2023 End: 09-19-2023 ambulatory SAGAR BARTH Facility:[facility] Start: 09-19-2023 End: 09-19-2023 Patient encounter procedure Sagar Barth APRN.INTENSIVE CARE UNIT NURSE Work Phone: Neurology Headache [facility] Comment on above: Intractable chronic migraine without aura and without status migrainosus (Primary Dx) Start: 08-21-2023 End: 08-21-2023 ambulatory SHAIKH KAVITA Not Available Start: 08-18-2023 End: 08-18-2023 ambulatory CURTIS LEPE Facility:[facility] Start: 08-18-2023 End: 08-18-2023 Patient encounter procedure Curtis TELLESC Work Phone: Neurology Comment on above: Intractable chronic migraine without aura and without status migrainosus (Primary Dx); Psychogenic nonepileptic seizure Start: 08-16-2023 ambulatory Sagar Barth APR N.INTENSIVE CARE UNIT NURSE Work Phone: Neurology [facility] Start: 08-16-2023 Subsequent hospital visit by physician Sagar Barth APRN.INTENSIVE CARE UNIT NURSE Work Phone: Neurology [facility] Comment on above: Hospital visit Start: 08-08-2023 ambulatory Sagar Barth APR N.INTENSIVE CARE UNIT NURSE Work Phone: Neurology [facility] Comment on above: Injection Start: 07-10-2023 End: 07-10-2023 ambulatory Sagar Barth RELATIONSHIP ADVISOR.INTENSIVE CARE UNIT NURSE Work Phone: Neurology [facility] Comment on above: Intractable chronic migraine without aura and without status migrainosus (Primary Dx) Start: 07-10-2023 End: 07-10-2023 Telemedicine consultation with patient Sagar Barth APRN.INTENSIVE CARE UNIT NURSE Work Phone: Neurology [facility] Start: 06-26-2023 ambulatory Ольга zazueta RELATIONSHIP ADVISOR.INTENSIVE CARE UNIT NURSE Work Phone: Neurology Comment on above: Concern Headache Start: 06-19-2023 End: 06-19-2023 ambulatory ZAY ROOPA Not Available Start: 04-14-2023 End: 04-14-2023 ambulatory [...] without status migrainosus Start: 04-13-2023 Telephone encounter Sagar Barth APRN.CNP Work Phone: Neurology Comment on [...] Telephone encounter Angely rousseau RN Work Phone: [facility] Comment on above: Insurance Authorizat ion (Aimovig 70MG/ML auto-injectors/) Start: 03-23-2023 End: 03-23-2023 ambulatory SAGAR BARTH Facility:[facility] Start: 12-13-2022 Refill Sagar Barth APR N.FADY Work Phone: Neurology Headache [facility] Comment on above: Refill Request Infusion (HEADACHE I NFUSIONS) Start: 12-09-2022 Refill Ольга Cardona er RELATIONSHIP ADVISOR.FADY Work Phone: Neurology Comment on above: Refill Request Start: 11-11-2022 End: 11-11-2022 ambulatory Infusion Main Chair 8 Work Phone: Neurology Comment on above: Intractable chronic migraine without aura and with status migrainosus (Primary Dx) Start: 11-10-2022 End: 11-10-2022 ambulatory Ольга Arredondoler RELATIONSHIP ADVISOR.INTENSIVE CARE UNIT NURSE Work Phone: Neurology Comment on above: Intractable chronic migraine without aura and with status migrainosus (Primary Dx) Nerve block Start: 11-10-2022 Telephone encounter Suzan dinero APRN.CNP Work Phone: Neurology Comment on above: Infusion Start: 11-10-2022 End: 11-10-2022 Telemedicine consultation with patient Ольга Aguilar RELATIONSHIP ADVISOR.FADY Work Phone: [facility] Start: 10-12-2022 ambulatory Suzan boyle APRN.CNP Work Phone: Neurology Comment on above: Botox Start: 10-12-2022 E-mail encounter alexus m caregiver Suzan Driver APRN.CNP Work Phone: [facility] Start: 09-29-2022 Telephone encounter Angely rousseau RN Work Phone: [facility] Comment on above: Insurance Authorizat ion (Zomig 5MG nasal spray/) Start: 09-27-2022 ambulatory Sagar Barth APR N.FADY Work Phone: [facility]UR HEADACHE [facility] Comment on above: My apt Monday Start: 09-16-2022 ambulatory Sagar Barth APR N.FADY Work Phone: [facility] Start: 09-16-2022 Patient encounter procedure Koli Green RELATIONSHIP ADVISOR.INTENSIVE CARE UNIT NURSE Work Phone: NEUR HEADACHE [facility] Comment on above: Appointment Start: 08-31-2022 End: 08-31-2022 ambulatory Sagar Barth RELATIONSHIP ADVISOR.INTENSIVE CARE UNIT NURSE Work Phone: Neurology Comment on above: Chronic migraine w/o aura, not intractable, w/o stat migr (Primary Dx) Start: 08-31-2022 End: 08-31-2022 Telemedicine consultation with patient Sagar Barth APRN.INTENSIVE CARE UNIT NURSE Work Phone: [facility] Start: 08-09-2022 ambulatory Sagar Barth APR N.INTENSIVE CARE UNIT NURSE Work Phone: NEUR [facility]AC[facility] Comment on above: Pain Start: 08-08-2022 End: 08-08-2022 ambulatory Jesse Salima MORENO Work Phone: Neurology Comment on above: Intractable chronic migraine without aura and with status migrainosus (Primary Dx) Start: 08-08-2022 End: 08-08-2022 Telemedicine consultation with patient Jesse Borrego Work Phone: [facility] Start: 08-07-2022 ambulatory Jesse rick MD Work Phone: Neurology Comment on above: Name of medication Start: 07-28-2022 End: 07-28-2022 ambulatory Infusion Main Chair 8 Work Phone: Neurology Comment on above: Intractable chronic migraine without aura and with status migrainosus (Primary Dx) Start: 07-21-[address] ZAY BLAS . Facili ty:[facility] Start: 07-14-2022 Encounter for other preprocedural examination DR ZAY BLAS . [facility] Start: 07-12-2022 End: 07-13-[address] ZAY BLAS . Facility:[facility] Start: 07-12-2022 End: 07-13-2022 Encounter for other preprocedural examination DR ZAY BLAS . Facility:[facility] Start: 07-05-2022 ambulatory KRISTOFER Nunn acility:[facility] Start: 06-27-2022 Telephone encounter Sagar Barth APRN.INTENSIVE CARE UNIT NURSE Work Phone: Neurology Comment on above: Appointment (infusio n) Start: 06-20-2022 End: 06-20-2022 ambulatory MANJINDER DEAL Facility:[facility] Start: 06-19-2022 End: 06-19-2022 ambulatory CHAYITO NARVAEZ . Facility:[facility] Start: 06-13-2022 Admission to establishment Jesse Borrego MD Work Phone: Neurology Comment on above: Admission Start: 06-13-2022 ambulatory Jesse Brigid rikc MD Work Phone: [facility] Start: 06-11-2022 End: 06-11-2022 ambulatory DENNIS ALSTON . Facility:[facility] Start: 06-08-2022 End: 06-08-2022 ambulatory MARY PAULINO . Facility:[facility] Start: 06-07-2022 ambulatory Jesse Rainey krupa MORENO Work Phone: Neurology Comment on above: Migraines Start: 05-23-2022 End: 05-24-2022 ambulatory PATRICIA WALSH Facility:[facility] Start: 05-08-2022 End: 05-08-2022 ambulatory LUH CAPONE . Facility:[facility] Start: 03-31-2022 End: 04-01-[address] DERIK ARTHUR Facility:[facility] Start: 01-14-2022 End: 01-14-2022 ambulatory SUKHDEEP DOCKERY Facility:[facility] Start: 01-07-2022 End: 01-07-2022 ambulatory MANJINDER DEAL Facility:[facility] Start: 12-19-2021 ambulatory Jesse rick MD Work Phone: Neurology Comment on above: Medication Start: 12-03-2021 End: 12-03-2021 Patient encounter procedure Jesse Salima MORENO Work Phone: Neurology Comment on above: Chronic migraine w/o aura, not intractable, w/o stat migr (Primary Dx) Start: 11-10-2021 End: 11-10-2021 ambulatory Nelly Saldaña PA-C Work Phone: Neurology Comment on above: Seizure-like activit y (HCC) (Primary Dx) Start: 11-10-2021 End: 11-10-2021 Telemedicine consultation with patient Nelly Saldaña KRISTOFER Work Phone: [facility] Start: 11-09-2021 ambulatory Tyrone Dolan MD, PhD Work Phone: [facility] Start: 11-09-2021 Patient encounter procedure Tyrone Dolan MD, PhD Work Phone: Neurology Comment on above: Request Veido appoin tment Start: 11-08-2021 ambulatory Tyrone Dolan MD, PhD Work Phone: [facility] Start: 11-08-2021 Patient encounter procedure Tyrone Dolan MD, PhD Work Phone: Neurology Comment on above: Appointment Start: 11-08-2021 Telephone encounter Tyrone Dolan MD, PhD Work Phone: Neurology Comment on above: Orders Start: 11-04-2021 End: 11-04-2021 ambulatory MANJINDER DEAL Facility: Start: 10-29-2021 End: 10-29-2021 ambulatory Tyrone Dolan MD, PhD Work Phone: Neurology Comment on above: Psychogenic nonepile ptic seizure (Primary Dx); Spells of trembling; Chronic intractable headache, unspecified headache type Start: 10-29-2021 End: 10-29-2021 Telemedicine consultation with patient Tyrone Dolan MD, PhD Work Phone: [facility] Start: 10-26-2021 Patient encounter procedure Román Storey MD Work Phone: Neurology Comment on above: Seizure-like activit y (HCC) (Primary Dx) Start: 10-19-2021 End: 10-20-2021 Evaluation and management of inpatient LUCILA MOTA [facility] Start: 10-19-2021 End: 10-20-2021 Evaluation and management of inpatient Lucila Mota MD Work Phone: [facility] 1B Neuro ICU Start: 10-19-2021 End: 10-19-2021 ambulatory SHAIKH Joseph WALLS Facility:[facility] Start: 10-07-2021 End: 10-07-[address] ZAY BLAS . Facility:[facility] Start: 10-06-2021 End: 10-06-2021 ambulatory SUKHDEEP MAURERMINOO Facility:[facility] Start: 10-03-2021 End: 10-04-2021 ambulatory MANJINDER SAY Facility:[facility] Start: 10-01-2021 End: 10-02-2021 Evaluation and management of inpatient DR DERIK ARTHUR Facility:[facility] Start: 10-01-2021 Encounter for preprocedural laboratory examination DR ZAY BLAS . [facility] Start: 09-29-2021 End: 09-30-[address] ZAY BLAS . Facility:[facility] Start: 09-29-2021 End: 09-30-2021 Encounter for preprocedural laboratory examination DR ZAY BLAS . Facility:[facility] Start: 09-21-2021 End: 09-22-[address] DERIK ARTHUR Facility:[facility] Start: 09-14-2021 End: 09-15-[address] DERIK ARTHUR Facility:[facility] Start: 08-14-2021 End: 08-14-2021 ambulatory ALBA GRACE Facility:[facility] Start: 08-14-2021 End: 08-14-2021 [facility] Start: 12-24-2020 End: 12-24-2020 Emergency department patient visit DERIK Pamela SANDHYA [facility] Start: 12-24-2020 End: 12-24-2020 Emergency department patient visit Keven Ching DO Work Phone: [facility] ED Comment on above: Migraine without sta tus migrainosus, not intractable, unspecified migraine type (Primary Dx) Start: 02-18-2020 End: 02-18-2020 Telephone encounter Imad Najm Work Phone: Neurology Comment on above: Future Appointment ( [place], [place], [place]) Procedures Date Procedure Procedure Detail Performing Clinician Start: 04-16-2024 IGP,APTIMA HPV,AGE GDLN Zay Blas DO Work Phone: Start: 04-10-2024 Comprehensive metabo lic panel Annetta Rodriguez MD Work Phone: Start: 04-09-2024 Iadna s aureus methi cillin resist amp probe tq Jaziel Crump MD Work Phone: Start: 04-09-2024 Basic metabolic pane l calcium total Katina Block DO Work Phone: Start: 04-08-2024 Cul bact xcpt urine blood/stool aerobic isol Kinsey Toussaint MD Work Phone: Start: 04-08-2024 Ct abdomen & pelvis w/contrast material Rohan Velazquez MD Work Phone: Start: 04-08-2024 End: 04-08-2024 Basic metabolic panel calcium total Yordy Guardadoorest DO Work Phone: Start: 04-08-2024 Hepatic function panel Yordy Guardadoorest DO Work Phone: Start: 04-08-2024 Urnls dip stick/tabl et rgnt auto w/o microscopy Yordy Compa Melton DO Work Phone: Start: 04-08-2024 Culture bacterial quanttative colony count urine Rohan Velazquez MD Work Phone: Start: 04-08-2024 Radiologic exam ches t single view Rohan Velazquez MD Work Phone: Start: 04-08-2024 SARS/FLU A+B/RSV BY NAAT/MOLECULAR (M4RT COLLECTION TUBE) Rohan Velazquez MD Work Phone: Start: 04-08-2024 Ecg routine ecg w/le ast 12 lds trcg only w/o i&r Rohan Velazquez MD Work Phone: Start: 04-08-2024 End: 04-08-2024 Blood count complete auto&auto difrntl wbc Heide Dixon MD Work Phone: Start: 04-08-2024 End: 04-08-2024 Culture bacterial blood aerobic w/id isolates Yordy Osmanvikas Melton DO Work Phone: Start: 04-08-2024 Adult depression scr eening assessment Svetlana HERNANDEZ Work Phone: Start: 03-25-2024 Antibody screen Metro 3 Start: [...] Start: 10-20-2021 EEG VIDEO MONITORING Marcy Perez RELATIONSHIP ADVISOR - INTENSIVE CARE UNIT NURSE Work Phone: Start: 10-20-2021 BASIC METABOLIC PANE L W/ REFLEX TO MG FOR LOW K Puri Rikki Mota MD Work Phone: Start: 10-20-2021 Blood count complete auto&auto difrntl wbc Lo Perez RELATIONSHIP ADVISOR - INTENSIVE CARE UNIT NURSE Work Phone: Start: 10-20-2021 IMMATURE PLATELET FRACTION Lo Perez RELATIONSHIP ADVISOR - INTENSIVE CARE UNIT NURSE Work Phone: Start: 10-19-2021 Assay of lactate Uday radha Perez RELATIONSHIP ADVISOR - INTENSIVE CARE UNIT NURSE Work Phone: Start: 10-19-2021 Ecg routine ecg w/le ast 12 lds w/i&r Lo Perez RELATIONSHIP ADVISOR - INTENSIVE CARE UNIT NURSE Work Phone: Start: 10-19-2021 Mri brain brain stem w/o w/contrast material Lo Perez RELATIONSHIP ADVISOR - INTENSIVE CARE UNIT NURSE Work Phone: Start: 10-19-2021 RESPIRATORY CARE VERA LUATION ONLY Lo Perez RELATIONSHIP ADVISOR - INTENSIVE CARE UNIT NURSE Work Phone: Start: 10-01-2021 Resection of Bilater al Fallopian Tubes, Open Approach CHAYITO NARVAEZ . Start: 10-01-2021 Resection of Uterus, Open Approach CHAYITO NARVAEZ . Start: 12-24-2020 Blood count complete auto&auto difrntl wbc Keven Ching DO Work Phone: Start: 12-24-2020 Ct head/brain w/o co ntrast material Keven Ching DO Work Phone: Plan of Treatment Date Care Activity Detail Author Start: 09-20-2025 DTaP,Tdap and Td Vac cines (7 - Td or Tdap) DTaP,Tdap and Td Vaccines (7 - Td or Tdap) [facility] Start: 09-20-2025 DTaP/Tdap/Td vaccine (7 - Td or Tdap) DTaP/Tdap/Td vaccine (7 - Td or Tdap) [facility] Start: 09-20-2025 Urine microalbumin profile [facility] Start: 04-15-2025 Adult BMI Screening Adult BMI Screen ing [facility] Start: 04-08-2025 Depression Screening Depression Scre [facility] Start: 04-08-2025 Tobacco Screening Tobacco Screening [facility] Start: 03-28-2025 Adult BMI Screening Adult BMI Screen ing [facility] Start: 03-28-2025 Tobacco Screening Tobacco Screening [facility] Start: 03-25-2025 Adult BMI Screening Adult BMI Screen ing [facility] Start: 03-25-2025 Tobacco Screening Tobacco Screening [facility] Start: 03-20-2025 Adult BMI Screening Adult BMI Screen ing [facility] Start: 03-20-2025 Tobacco Screening Tobacco Screening [facility] Start: 03-18-2025 Adult BMI Screening Adult BMI Screen ing [facility] Start: 03-18-2025 Tobacco Screening Tobacco Screening [facility] Start: 05-28-2024 End: 05-28-2024 Patient encounter procedure 05/28/2024 1:00 PM EDT Office Visit [facility] [address] [place] [phone] Casey Mariah M, DO [address] [address] [facility] Start: 04-30-2024 End: 04-30-2024 Patient encounter procedure 04/30/2024 9:00 AM EDT Office Visit Joie Fernández Garza [facility] - Medical Oncology [address] [place] [phone] Svetlana Ye PA [address] [place] [address] Joiemicki Antonio [facility] - [facility] Oncology Start: 04-25-2024 End: 04-25-2024 Patient encounter procedure 04/25/2024 1:00 PM EST Office Visit [facility] [address] [place] [phone] Corine Gold MD [address] [place], [place] [phone] [facility] Start: 04-16-2024 End: 04-16-2024 Patient encounter procedure 04/16/2024 8:30 AM EST Office Visit [facility] [address] [facility] [place] [address] Zay Blas DO [address] [facility] [place] [address] [facility] Start: 04-15-2024 End: 04-15-2024 Patient encounter procedure 04/15/2024 9:00 AM EST Office Visit [facility], A Department of [facility] [address] [place] [phone] Svetlana Ye PA [address] [place] [address] [facility] Oncology, A Department of [facility] Start: 04-10-2024 End: 04-10-2024 Patient encounter procedure 04/10/2024 11:30 AM EST Office Visit Joie Antonio [facility] - Medical Oncology [address] [place] [address] Svetlana Ye PA [address] [place] [address] Joie Antonio [facility] Start: 04-10-2024 End: 04-10-2024 Professional / ancillary services management 04/10/2024 9:30 AM EST Ancillary Procedure [facility] [address] [place] [phone] [facility] Start: 03-29-2024 End: 03-29-2024 ambulatory 03/29/2024 1:30 PM EST [facility]rology [address] [place] [address] [facility] Comment on above: [facility] Start: 03-28-2024 End: 03-28-2024 Admission to same day surgery center 03/28/2024 9:00 AM EST - 03/28/2024 12:45 PM EST Surgery [facility] - Surgery [facility] [place] [phone] Mundo Martinez MD [address] [place] [address] DAVINCI LYSIS OF ADHESIONS [facility] - Surgery Comment on above: DAVINCI LYSIS OF ADH ESIONS Start: 03-28-2024 End: 03-28-2024 DAVINCI LYSIS OF ADHESIONS DAVINCI LYSIS OF ADHESIONS OVARIAN CYST BILATERAL 03/28/2024 9:00 AM EST [facility] Start: 03-28-2024 End: 03-28-2024 DAVINCI SALPINGO OOPHORECTOMY DAVINCI SALPINGO OOPHORECTOMY OVARIAN CYST BILATERAL 03/28/2024 9:00 AM EST [facility] Start: 03-28-2024 Subsequent hospital visit by physician 03/28/2024 9:00 AM EST Hospital Encounter [facility] Surgery [address] [place] [phone] Mundo Martinez MD [address] [place] [address] [facility] - Surgery Start: 03-25-2024 End: 03-25-2024 Patient encounter procedure 03/25/2024 2:15 PM EST Procedure visit [facility] On [address] [phone] [facility] Start: 03-22-2024 End: 03-22-2024 ambulatory 03/22/2024 1:30 PM EST [facility]fusion [facility] Neurology [address] [place] [address] [facility] Comment on above: [facility] Start: 03-20-2024 End: 03-20-2025 CT Chest WO contrast CT chest without contrast Imaging Routine Moderate asthma with acute exacerbation, unspecified whether persistent Expected: 03/20/2024, Expires: 03/20/2025 [facility] Work Phone: Comment on above: Expected: 03/20/2024 , Expires: 03/20/2025 Start: 02-28-2024 End: 02-27-2025 AFP tumor marker AFP tumor marker Lab Routine Complex ovarian cyst Expected: 02/28/2024 (Approximate), Expires: 02/27/2025 [facility] Comment on above: Expected: 02/28/2024 (Approximate), Expires: 02/27/2025 Start: 02-28-2024 End: 02-27-2025 CA 125 CA 125 Lab Routine Complex ovarian cyst Expected: 02/28/2024 (Approximate), Expires: 02/27/2025 [facility] Comment on above: Expected: 02/28/2024 (Approximate), Expires: 02/27/2025 Start: 02-28-2024 End: 02-27-2025 Carcinoembryonic Ag [Mass/volume] in Serum or Plasma CEA Lab Routine Complex ovarian cyst Expected: 02/28/2024 (Approximate), Expires: 02/27/2025 [facility] Comment on above: Expected: 02/28/2024 (Approximate), Expires: 02/27/2025 Start: 02-28-2024 End: 02-27-2025 HCG, tumor marker HCG, tumor marker Lab Routine Complex ovarian cyst Expected: 02/28/2024 (Approximate), Expires: 02/27/2025 [facility] Comment on above: Expected: 02/28/2024 (Approximate), Expires: 02/27/2025 Start: 02-28-2024 End: 02-27-2025 Lactate dehydrogenase, isoenzymes Lactate dehydrogenase, isoenzymes Lab Routine Complex ovarian cyst Expected: 02/28/2024 (Approximate), Expires: 02/27/2025 [facility] Work Phone: Comment on above: Expected: 02/28/2024 (Approximate), Expires: 02/27/2025 Start: 02-28-2024 End: 02-27-2025 US Pelvis US Pelvis w/ TV Imaging Routine Pelvic pain in female Complex ovarian cyst Expected: 02/28/2024, Expires: 02/27/2025 [facility] Comment on above: Expected: 02/28/2024 , Expires: 02/27/2025 Start: 02-28-2024 End: 02-28-2024 Patient encounter procedure 02/28/2024 11:10 AM EST Office Visit [facility] [address] [place] [phone] Zay Blas DO [address] [place] [address] [facility] Start: 02-22-2024 End: 02-22-2024 Patient encounter procedure 02/22/2024 11:15 AM EST Office Visit [facility] [address] [place] [address] Lamont Shay MD [address] [place] [address] [facility] Start: 02-09-2024 End: 02-08-2025 CT Abdomen and Pelvis WO and W contrast IV CT abdomen pelvis w and wo IV contrast Imaging Routine Generalized abdominal pain Intractable nausea and vomiting Expected: 02/09/2024, Expires: 02/08/2025 [facility] Work Phone: Comment on above: Expected: 02/09/2024 , Expires: 02/08/2025 Start: 02-05-2024 End: 02-05-2024 ambulatory 02/05/2024 1:45 PM EST [facility] Neurology [facility] [address] [place] [address] Sagar Barth APRN.INTENSIVE CARE UNIT NURSE [address] [place] [address] [facility] Comment on above: [facility] Start: 01-24-2024 End: 01-24-2024 Patient encounter procedure 01/24/2024 3:20 PM EST Office Visit [facility] [address] [facility] [place] [phone] Zay Blas, [address] [facility] [address] [place], [place] [phone] [facility] OB Start: 01-23-2024 End: 01-22-2025 Basic metabolic 1998 panel - Serum or Plasma Basic metabolic panel Lab Routine Generalized edema Expected: 01/23/2024 (Approximate), Expires: 01/22/2025 [facility] Comment on above: Expected: 01/23/2024 (Approximate), Expires: 01/22/2025 Start: 01-23-2024 End: 01-22-2025 CBC W Auto Differential panel - Blood CBC and differential Lab Routine Generalized edema SOB (shortness of breath) on exertion Expected: 01/23/2024 (Approximate), Expires: 01/22/2025 [facility] Comment on above: Expected: 01/23/2024 (Approximate), Expires: 01/22/2025 Start: 01-23-2024 End: 01-22-2025 Hepatic function 2000 panel - Serum or Plasma Hepatic function panel Lab Routine Generalized edema SOB (shortness of breath) on exertion Expected: 01/23/2024 (Approximate), Expires: 01/22/2025 [facility] Comment on above: Expected: 01/23/2024 (Approximate), Expires: 01/22/2025 Start: 01-23-2024 End: 01-22-2025 Natriuretic peptide B [Mass/volume] in Blood B-type natriuretic peptide Lab Routine Generalized edema Expected: 01/23/2024 (Approximate), Expires: 01/22/2025 [facility] Comment on above: Expected: 01/23/2024 (Approximate), Expires: 01/22/2025 Start: 01-23-2024 End: 01-22-2025 XR Chest 2 Views XR chest 2 views Imaging Routine Mild persistent asthma with (acute) exacerbation (CMS/HCC) Generalized edema SOB (shortness of breath) on exertion Expected: 01/23/2024, Expires: 01/22/2025 [facility] Work Phone: Comment on above: Expected: 01/23/2024 , Expires: 01/22/2025 Start: 01-23-2024 End: 01-23-2024 Patient encounter procedure [facility] Comment on above: Arrived Start: 01-22-2024 End: 01-22-2024 Patient encounter procedure 01/22/2024 2:30 PM EST Office Visit Neurology [address] [place] [address] Raiza Morales, RELATIONSHIP ADVISOR.INTENSIVE CARE UNIT NURSE [address] [place] [address] Infusion Day #3 Neurology Comment on above: Infusion Day #3 Start: 01-22-2024 End: 01-22-2024 ambulatory 01/22/2024 2:00 PM EST Infusion Center Neurology [address] [place] [address] Non-DHE Infusion Day #3 Neurology Comment on above: Non-DHE Infusion Day #3 Start: 01-19-2024 End: 01-19-2024 ambulatory 01/19/2024 9:30 AM EST Infusion [facility] Neurology [address] [place] [address] Non-DHE Infusion Day #2 Neurology Comment on above: Non-DHE Infusion Day #2 Start: 01-09-2024 End: 01-09-2024 Patient encounter procedure [facility] Comment on above: Arrived Start: 01-05-2024 End: 01-05-2024 ambulatory 01/05/2024 1:00 PM [facility] Infusion Center Neurology [address] [place] [address] [facility] Comment on above: [facility] Start: 12-12-2023 End: 12-12-2023 Patient encounter procedure 12/12/2023 3:45 PM EDT Office Visit [facility] [address] [place] [phone] Lamont Shay MD [address] [place] [phone] [facility] Start: 12-11-2023 End: 12-11-2023 Patient encounter procedure 12/11/2023 1:00 PM EDT Office Visit [facility] [address] [facility] [place] [phone] Zay Blas DO [address] [facility] [place] [address] Arrived [facility] Comment on above: Arrived Start: 11-15-2023 End: 11-15-2023 Patient encounter procedure 11/15/2023 8:45 AM EDT Office Visit [facility] [address] [place] [phone] Lamont Shay MD [address] [place] [address] Arrived [facility] Comment on above: Arrived Start: 11-06-2023 End: 11-06-2023 Patient encounter procedure 11/06/2023 11:30 AM EDT Office Visit [facility] [address] [facility] [address] [place] [address] Jose Martin Lopez MD [address] [facility] [address] [address] [facility] Start: 10-31-2023 End: 10-31-2023 Patient encounter procedure 10/31/2023 2:30 PM EDT Office Visit Neurology [address] [place], [place] [phone] Tyrone Dolan MD, PhD [address] [facility] [address] [place] [address] Seizure Neurology Comment on above: Seizure Start: 10-22-2023 Covid-19 Vaccine ( season) Covid-19 Vaccine ( season) [facility] Start: 10-22-2023 Covid-19 Vaccine ( season) Covid-19 Vaccine ( season) [facility] Start: 10-22-2023 Influenza vaccination C [facility] Start: 10-13-2023 End: 10-13-2023 ambulatory 10/13/2023 1:00 PM EDT Infusion Center Neurology [address] [place] [address] [facility] Comment on above: [facility] Start: 10-10-2023 End: 10-10-2023 Patient encounter procedure 10/10/2023 9:15 AM EDT Office Visit [facility] [address] [place] [phone] Lamont Shay MD [address] [place] [address] Arrived [facility] Comment on above: Arrived Start: 09-19-2023 End: 09-19-2023 Patient encounter procedure 09/19/2023 2:30 PM EDT Office Visit Neurology [facility] [address] [place] [address] Sagar Barth APRN.INTENSIVE CARE UNIT NURSE [address] [place] [address] Migraines Nerve Block Neurology [facility] Comment on above: Migraines Nerve Bloc k Start: 08-18-2023 End: 08-18-2023 Patient encounter procedure 08/18/2023 9:30 AM EDT Office Visit Neurology [address] [place] [address] Curtis Lepe PA-C [address] [place], [place] [phone] NERVE BLOCK Neurology Comment on above: NERVE BLOCK Start: 03-03-2023 Depression Screening Depression [facility] Start: 02-20-2023 Depression [facility] Start: 10-29-2022 Adult depression scr eening assessment DEPRESSION SCREENING [facility] Start: 10-21-2022 Covid-19 Vaccine ( season) Covid-19 Vaccine ( season) [facility] Start: 10-21-2022 Influenza vaccination [facility] Start: 02-20-2022 DEPRESSION ASSESSMENT DEPRESSION ASS ESSMENT [facility] Start: 10-26-2021 End: 10-26-2022 SARS-CoV-2 (COVID-19) RNA [Presence] in Respiratory specimen by SAURABH with probe detection PRE-PROCEDURE & PRE-OPERATIVE COVID Microbiology Routine Seizure-like activity (HCC) Expected: 10/26/2021, Expires: 10/26/2022 [facility] Work Phone: Comment on above: Expected: 10/26/2021 , Expires: 10/26/2022 Start: 10-21-2021 Influenza vaccination B ON [employer] Start: 02-20-2021 DEPRESSION ASSESSMENT DEPRESSION ASS ESSMENT [facility] Start: 10-21-2020 Influenza vaccination Flu vaccine (# 1) [employer] Phone: Start: 11-13-2016 PAP TESTING PAP TESTING [facility] Start: 11-13-2016 Screening for malign ant neoplasm of cervix [facility] [employer] Start: 11-13-2014 Urine microalbumin profile [facility] Start: 11-13-2013 Adult BMI Follow Up Plan Adult BMI Follow Up Plan [facility] Start: 11-13-2013 Anxiety Screening Anxiety Screening [facility] Start: 11-13-2013 Depression Screening Depression Scre ening [facility] Start: 11-13-2013 Hepatitis C screening B ON [employer] Start: 11-13-2013 HEPATITIS C SCREENING HEPATITIS C [facility] Start: 11-13-2013 HIV SCREENING HIV SCREENING [facility] Start: 11-13-2013 HIV screening HIV Screening [facility] Start: 2011 Screening for Chlamy rose trachomatis Chlamydia screen [facility] [employer] Start: 11-13-2010 HIV screening HIV screen [facility] [employer] Start: 11-13-2009 PEDS TO ADULT TRANSI TION ANNUAL ASSESSMENT PEDS TO ADULT TRANSITION ANNUAL ASSESSMENT [facility] Start: 2007 Adult depression scr eening assessment DEPRESSION SCREENING [facility] Start: 2007 COVID-19 Vaccine (1) COVID-19 Vaccin e (1) [employer] Phone: Start: 2007 Depression Screen Depression Screen [facility] [employer] Start: 2007 PEDS TO ADULT TRANSI TION INITIAL DISCUSSION PEDS TO ADULT TRANSITION INITIAL DISCUSSION [facility] Start: 11-13-2006 HPV VACCINE (1 - 2-d ose series) HPV VACCINE (1 - 2-dose series) [facility] Start: 11-13-2004 HPV VACCINE (1 - 2-d ose series) HPV VACCINE (1 - 2-dose series) [facility] Start: 05-13-1996 COVID-19 Vaccine (#1) COVID-19 Vacci ne (#1) [facility] [employer] Start: 1995 HEPATITIS B (1 of 3 - 3-dose series) HEPATITIS B (1 of 3 - 3-dose series) [facility] Start: 1995 Hepatitis B Vaccine (1 of 3 - 3-dose series) Hepatitis B Vaccine (1 of 3 - 3-dose series) [facility] Start: 1995 Hepatitis C screening Hepatitis C sc [facility] [employer] Work Phone: End: 03-20-2025 Loeho-4-Gdlgfzyztrx Phenotype Jnbeq-1-Dkqvkawredu Phenotype Lab Routine Moderate asthma with acute exacerbation, unspecified whether persistent 1 Occurrences starting 03/20/2024 until 03/20/2025 [facility] Comment on above: 1 Occurrences starti ng 03/20/2024 until 03/20/2025 Sjnru-9-Bihosbblcle Phenotype Kiyjy-7-Dkzxacqcjrf Phenotype Lab Routine Moderate asthma with acute exacerbation, unspecified whether persistent 03/20/2024 1:12 PM EST [facility] Bacteria identified in Blood by Aerobe culture [employer] Phone: Bacteria identified in Urine by Culture URINE CULTURE, ROUTINE Lab Routine 01/31/2024 11:57 AM EST [facility] Bacteria identified in Wound by Aerobe culture Wound culture superficial includes gram stain Microbiology Routine 04/08/2024 8:25 PM EST [employer] Phone: End: 10-26-2021 Basic Metabolic Panel w/ Reflex to MG Basic Metabolic Panel w/ Reflex to MG Lab Routine Daily for 7 Days starting 10/20/2021 until 10/26/2021 [employer] Phone: Comment on above: Daily for 7 Days sta rting 10/20/2021 until 10/26/2021 End: 10-26-2021 CBC W Auto Differential panel - Blood CBC with Auto Differential Lab Routine Daily for 7 Days starting 10/20/2021 until 10/26/2021, 1 completed [employer] Phone: Comment on above: Daily for 7 Days sta rting 10/20/2021 until 10/26/2021, 1 completed Cytology Cervical or vaginal smear or scraping study Pap Smear Pathology and Cytology Routine Well woman exam with routine gynecological exam Ordered: 04/16/2024 [facility] Work Phone: Comment on above: Ordered: 04/16/2024 End: 03-19-2025 ECG 12 lead ECG 12 lead ECG Routine Bilateral ovarian cysts Preop testing 1 Occurrences starting 03/19/2024 until 03/19/2025 [facility] Work Phone: Comment on above: 1 Occurrences starti ng 03/19/2024 until 03/19/2025 EKG 12 Lead EKG 12 Lead ECG Routine 10/19/2021 5:55 PM EDT [employer] Work Phone: End: 10-29-2022 EPIL AMBULATORY EEG [facility] AMBULATORY EEG NEUROLOGY Routine Psychogenic nonepileptic seizure Spells of trembling 1 Occurrences starting 10/29/2021 until 10/29/2022 [facility] Work Phone: Comment on above: 1 Occurrences starti ng 10/29/2021 until 10/29/2022 End: 10-26-2022 EPIL EEG LEAD PLACEMENT EPIL EEG LEAD PLACEMENT NEUROLOGY Routine Seizure-like activity (HCC) 1 Occurrences starting 10/26/2021 until 10/26/2022 [facility] Work Phone: Comment on above: 1 Occurrences starti ng 10/26/2021 until 10/26/2022 End: 11-08-2022 EPIL EEG ROUTINE EPIL EEG ROUTINE NEUROLOGY Routine Seizure-like activity (HCC) 1 Occurrences starting 11/08/2021 until 11/08/2022 [facility] Work Phone: Comment on above: 1 Occurrences starti ng 11/08/2021 until 11/08/2022 EPIL VEEG ADMIT TO EMU/PMU EPIL VEEG ADMIT TO EMU/PMU NEUROLOGY Routine Seizure-like activity (HCC) Ordered: 10/26/2021 [facility] Work Phone: Comment on above: Ordered: 10/26/2021 Oxygen therapy [[facility] Data Set] Initiate Oxygen Therapy Protocol Respiratory Care Routine As Needed until discontinued starting 10/19/2021 [facility] Work Phone: Comment on above: As Needed until disc ontinued starting 10/19/2021 End: 03-19-2025 Type and screen(includes indirect ady) Type and screen(includes indirect ady) Blood Bank Routine Bilateral ovarian cysts Preop testing 1 Occurrences starting 03/19/2024 until 03/19/2025 [facility] Comment on above: 1 Occurrences starti ng 03/19/2024 until 03/19/2025 [facility] Immunizations Immunization Date Immunization Notes Care Provider Preethi black 12-08-2017 Influenza, injectabl e, Madin Traphill Canine Kidney, preservative free, quadrivalent Mundo Martinez MD Work Phone: [facility] 12-08-2017 influenza virus vacc ine, unspecified formulation Suzan Driver RELATIONSHIP ADVISOR.INTENSIVE CARE UNIT NURSE Work Phone: [facility] 12-31-2015 influenza, seasonal, injectable, preservative free Mundo Martinez MD Work Phone: [facility] 09-21-2015 tetanus toxoid, redu ailyn diphtheria toxoid, and acellular pertussis vaccine, adsorbed Mundo Martinez MD Work Phone: [facility] 11-27-2014 influenza, seasonal, injectable, preservative free Mundo Martinez MD Work Phone: [facility] 10-23-2012 influenza, seasonal, injectable, preservative free Mundo Martinez MD Work Phone: [facility] 05-22-2012 human papilloma viru s vaccine, quadrivalent Mundo Martinez MD Work Phone: [facility] 01-20-2012 human papilloma viru s vaccine, quadrivalent Mundo Martinez MD Work Phone: [facility] 11-15-2011 human papilloma viru s vaccine, quadrivalent Mundo Martinez MD Work Phone: [facility] 11-15-2011 influenza, seasonal, injectable, preservative free Mundo Martinez MD Work Phone: [facility] 11-15-2011 meningococcal polysaccharide (groups A, C, Y and W-135) diphtheria toxoid conjugate vaccine (MCV4P) Mundo Martinez MD Work Phone: [facility] 11-15-2011 varicella virus vaccine Eloina Martinez MD Work Phone: [facility] 10-25-2002 hepatitis B vaccine, pediatric or pediatric/adolescent dosage Mundo Martinez MD Work Phone: [facility] 10-25-2002 varicella virus vaccine Eloina Martinez MD Work Phone: [facility] 09-07-2001 diphtheria, tetanus toxoids and acellular pertussis vaccine Mundo Martinez MD Work Phone: [facility] 09-07-2001 measles, mumps and rubella virus vaccine Mundo Martinez MD Work Phone: [facility] 09-07-2001 poliovirus vaccine, inactivated Mundo Martinez MD Work Phone: [facility] 03-05-1997 diphtheria, tetanus toxoids and acellular pertussis vaccine, Haemophilus influenzae type b conjugate, and poliovirus vaccine, inactivated ([id number]) Mundo Martinez MD Work Phone: [facility] 03-05-1997 measles, mumps and rubella virus vaccine Mundo Martinez MD Work Phone: [facility] 07-05-1996 diphtheria, tetanus toxoids and acellular pertussis vaccine, Haemophilus influenzae type b conjugate, and poliovirus vaccine, inactivated ([id number]) Mundo Martinez MD Work Phone: [facility] 05-06-1996 diphtheria, tetanus toxoids and acellular pertussis vaccine, Haemophilus influenzae type b conjugate, and poliovirus vaccine, inactivated ([id number]) Mundo Martinez MD Work Phone: [facility] 05-06-1996 hepatitis B vaccine, pediatric or pediatric/adolescent dosage Mundo Martinez MD Work Phone: [facility] 01-15-1996 diphtheria, tetanus toxoids and acellular pertussis vaccine, Haemophilus influenzae type b conjugate, and poliovirus vaccine, inactivated ([id number]) Mundo Martinez MD Work Phone: [facility] 1995 hepatitis B vaccine, pediatric or pediatric/adolescent dosage Mundo Martinez MD Work Phone: [facility] 1995 hepatitis B vaccine, pediatric or pediatric/adolescent dosage Mundo Martinez MD Work Phone: [facility] Payers Date Payer Category Payer Medicaid (Managed Care) [employer] [id number] 2022 Self-pay 2017 Medicaid [employer] [id number] 2017-Present Medicaid [id number] 2016 Medicaid HMO [employer] [id number] 2013 Medicaid [id number] [id number]. [id number] 2011 Unknown 1995 Unknown [id number] 2.16.840.1.813774.3.579.2. 173 1995 Unknown [id number] 2.16.840.1.583024.3.579.2. 175 1995 Unknown [id number] 2.16.840.1.917850.3.579.2. 727 1995 Unknown [id number] 2.16.840.1.960471.3.579.2. 593 1995 Unknown [id number] 2.16.840.1.180768.3.579.2. 593 1995 Unknown [id number] 2.16.840.1.086139.3.579.2. 593 1995 Unknown [id number] 2.16.840.1.355545.3.579.2. 593 1995 Unknown [id number] 2.16.840.1.894578.3.579.2. 593 1995 Unknown [id number] 2.16.840.1.002334.3.579.2. 593 1995 Unknown [id number] 2.16.840.1.959316.3.579.2. 593 1995 Unknown [id number] 2.16.840.1.515160.3.579.2. 593 1995 Unknown [id number] 2.16.840.1.939978.3.579.2. 593 1995 Unknown [id number] 2.16.840.1.533403.3.579.2. 593 1995 Unknown [id number] 2.16.840.1.702188.3.579.2. 593 1995 Unknown [id number] 2.16.840.1.456574.3.579.2. 59 1995 Unknown [id number] 2.16.840.1.429078.3.579.2. 593 1995 Unknown [id number] 2.16.840.1.510547.3.579.2. 593 1995 Unknown [id number] 2.16.840.1.253401.3.579.2. 593 1995 Unknown [id number] 2.16.840.1.187467.3.579.2. 593 1995 Unknown [id number] 2.16.840.1.142861.3.579.2. 593 1995 Unknown [id number] 2.16.840.1.212493.3.579.2. 593 1995 Unknown [id number] 2.16.840.1.155887.3.579.2. 593 1995 Unknown [id number] 2.16.840.1.799392.3.579.2. 593 1995 Unknown [id number] 2.16.840.1.896558.3.579.2. 593 1995 Unknown [id number] 2.16.840.1.895240.3.579.2. 593 1995 Unknown [id number] 2.16.840.1.753048.3.579.2. 1258 1995 Unknown [id number] 2.16840.1.355552.3.579.2. 1258 1995 Unknown [id number] 2.16.840.1.647232.3.579.2. 1258 1995 Unknown [id number] 2.16840.1.928610.3.579.2. 1258 1995 Unknown [id number] 2.16840.1.754334.3.579.2. 1258 1995 Unknown [id number] 2.840.1.785524.3.579.2. 1258 1995 Unknown [id number] 2.840.1.443256.3.579.2. 1258 1995 Unknown [id number] 2.840.1.049191.3.579.2. 1258 1995 Unknown [id number] 2.840.1.291843.3.579.2. 1258 1995 Unknown [id number] 2.16840.1.297214.3.579.2. 1258 1995 Unknown [id number] 2.16840.1.303568.3.579.2. 1258 1995 Unknown [id number] 2.840.1.386514.3.579.2. 1258 1995 Unknown [id number] 2.16840.1.676265.3.579.2. 1259 1959 Unknown [id number] .840.293540.1.13.239.2. 7.3.112675.315 Unknown [id number] 2.16840.1.065421.3.579.2. 531 Social History Date Type Detail Facility Tobacco smoking stat [facility] Unknown if ever smoked [facility] Start: 1995 Sex Assigned At Not on file C [facility] Start: 12-24-2020 End: 08-21-2023 Tobacco smoking status NDIS Never smoker [employer] Phone: Start: 12-24-2020 End: 08-21-2023 Tobacco use and exposure Never used [employer] Start: 12-24-2020 End: 04-08-2024 Alcohol intake Ex-drinker (finding) [employer] Work Phone: Start: 10-16-2021 End: 07-28-2022 Exposure to SARS-CoV-2 (event) Not sure [employer] Tobacco smoking stat us [facility] Tobacco smoking consumption unknown [facility] Work Phone: Start: 08-08-2022 End: 01-23-2024 History of Social function [facility] Start: 08-08-2022 End: 01-23-2024 Patient Health Questionnaire 2 item (PHQ-2) [Reported] [facility] Adult Depression Screening Assessment 2 [facility] Start: 11-15-2023 End: 04-16-2024 Alcoholic beverage intake Lifetime non-drinker (finding) [facility] Start: 07-31-2022 Alcohol Comment Caffeine intak e: >4 cups per day [facility] Do you belong to any clubs or organizations such as jain groups, unions, fraternal or athletic groups, or [...] [OSQ] Rather much [facility] (I/We) worried whemariel er (my/our) food would run out before (I/we) got money to buy more. Never true [facility] In the past 12 month s, was there a time when you were not able to pay the mortgage or rent on time? No [facility] Start: 09-25-2014 Sex Female (finding) [facility] How often to you hav e a drink containing alcohol? Monthly or less [facility] How many standard drinks containing alcohol do you have on a typical day? 1 or 2 [facility] Start: 04-08-2024 Alcohol Comment social [facility] NEGATED: Highlighted rowStart: NINF History of tobacco use Passive smoker [facility] Goals Date Patient Goal Desired Activity /State Personal health goal Comment on above: Formatting of this n ote might be different from the original. Evaluation of progress towards goal: Patient stated goal is to return home with [facility] for assistance with wound care Functional Status Date Assessment [facility] 12-24-2020 to 04-16-2024 Yumiko Worrell, CAROLYN - 04/16/2024 8:30 AM MAYR Norton - 04/15/2024 9:00 AM ESTDischarge Planning Note - Desiree Qureshi RN - 04/10/2024 3:04 PM Parth Pisano MD - 04/10/2024 2:59 PM EST Note Date & Type Note Facility 04-16-2024 History of Present illness Narrative Reason for Appointment: Patient ID: Sandie Nicholson is a 28 y.o. female who presents for Well Women Visit Patient presents today for Annual Exam. MEDICATIONS Current Outpatient Medications Medication Instructions promethazine [...] without aura without status migrainosus, not intractable ([facility]/HCC) 01/24/2023 Generalized anxiety disorder ([facility]/HCC) 01/24/2023 Persistent disorder of initiating or maintaining sleep 01/24/2023 Mild persistent asthma ([facility]/HCC) 01/24/2023 Polycystic ovaries 01/24/2023 Psychogenic nonepileptic seizure ([facility]) 01/24/2023 Class 3 severe obesity due to excess calories without serious comorbidity with body mass index (BMI) of 50.0 to 59.9 in adult ([facility]) 03/21/2023 Mild persistent asthma with (acute) exacerbation ([facility]) 10/10/2023 Fatigue 01/01/2024 Encounter for long-term [...] Acute exacerbation of asthma with allergic rhinitis ([facility]) Allergies Asthma ([facility]) At low risk for fall Bipolar affective, mixed (HCC) ([facility]) Change in blood pressure Cholecystitis 2008 Depressive disorder ([facility]/HCC) OMID (generalized anxiety disorder) ([facility]) History of hysterectomy 10/01/2021 Insomnia, persistent Migraines ([facility]) Mild persistent asthma without complication ([facility]) Morbid obesity with BMI of 40.0-44.9, adult ([facility]) PCOS (polycystic ovarian syndrome) Right otitis media Seizures ([facility]) HISTORY PAST MEDICAL HISTORY SOCIAL HISTORY Past Medical History: Diagnosis Date Acute exacerbation of asthma with allergic rhinitis ([facility]) Allergies Asthma ([facility]) At low risk for fall Bipolar affective, mixed (HCC) ([facility]) Change in blood pressure high and low Cholecystitis 2008 Chronic migraine without aura without status migrainosus, not intractable ([facility]/HCC) Depressive disorder (CMS/HCC) OMID (generalized anxiety disorder) ([facility]) History of hysterectomy 10/01/2021 Insomnia, persistent [...] Constitutional: Appearance: Normal appearance. She is well-developed. Genitourinary: Vulva normal. Vaginal cuff intact. Cervix is absent. Uterus is absent. Cardiovascular: Rate and Rhythm: Normal rate and [...] nursing note reviewed. Exam conducted with a tire technician present. Vitals: Estimated body mass index is 45.73 kg/m as calculated from the following: Height as of 02/09/24: 5' 1 . Weight as of 04/02/24: 242 lb. BP: No LMP recorded. Patient has had a hysterectomy. ASSESSMENT & PLAN ICD-10-CM 1. Well woman exam with routine gynecological exam Z01.419 Pap Smear Annual Exam: Patient presents today for an annual exam. Patient states she is doing well and has complaints of two open wounds from surgery in [place]. Has both packed currently. Pap was obtained without difficulty. No orders of the defined types were placed in this encounter. Follow Up: Patient is to return in one year for annual unless needed otherwise. Documented by Yumiko Worrell LPN on behalf of: Zay Blas DO documented in this encounter [facility] 04-15-2024 History of Present illness Narrative Subjective: April Nicholson is a 28 y.o. female who is s/p a laparoscopic BSO, FANNY on 03/28/24. Pathology: benign She unfortunately was admitted to [facility] on 04/08/24 after experiencing high fevers despite being on antibiotics. The patient stated that she completed a 7-day course of clindamycin post-operatively. One day prior to presentation to the ED, the patient had been evaluated at [facility] and was given 1 dose of bactrim before being discharged. The patient stated that she spiked a fever of 105 F at home and complained of severe abdominal pain along previous incision sites, especially in the umbilical and LLQ areas. She also had purulent, serosanguinous fluid discharge from the umbilical incision site one day prior to admission. The patient had been using tylenol, motrin, and roxicodone since discharge for pain, which remained uncontrolled. Patient was given 1000 mg IV ceftriaxone on 04/08 for possible peritonitis and started on IV Zosyn and IV Vanc. Surgery team was consulted and bedside I&D was performed of a 2 cm abdominal wall abscess deep to umbilical port incision on 04/08/2024 with release of 20 cc bloody purulent fluid, wound cultures were sent, gram stain showed few gram positive cocci. The wound was packed with lodoform strips and dressings placed, which were changed at appropriate intervals. The patient was transitioned to PO Augmentin. Patient subjectively improved as her pain was better controlled with PRN pain medication and nausea controlled with PRN Zofran. Patient was spontaneously ambulating on assessments. She passed flatus and had a bowel movement during inpatient stay. Today she reports ongoing moderate-severe pain near the umbilical and left upper port site. She states she is taking tylenol #3 and percocet alternating every 5 hours. She is also taking ibuprofen occasionally. Normal bowel and bladder habits, passing gas. She reports frequent headaches and sees neurology for headaches and seizures. She reports nausea related to her headaches, scopolamine patches are helpful. She feels her hot flashes are moderately controlled, but the patches are not sticking. She is using tagaderm to keep them in place. Patient was originally a consultation from Dr. Blas for evaluation and management of ovarian cysts. Oncology History No history exists. April Nicholson Denies Early satiety Denies Abdominal distention Denies Leg swelling Denies Shortness of breath Denies Vaginal bleeding Denies Change in bowel habits Denies Change in bladder habits Denies Nausea and vomiting All other systems negative, unless specifically noted in HPI. Past Gynecologic History: OB History 4 Para 3 Term 3 AB Living 3 SAB IAB Ectopic Multiple Live Births 3 No LMP recorded. Patient has had an implant. Hormonal Contraceptives No HRT use Yes -estrogen patch History of abnormal pap Past Surgical History: Procedure Laterality Date APPENDECTOMY SECTION CHOLECYSTECTOMY [facility] LYSIS OF ADHESIONS N/A 03/28/2024 Performed by Mundo Martinez MD at [facility] LYSIS OF ADHESIONS N/A 03/28/2024 Performed by Jesse Sultana MD at [facility] SALPINGO OOPHORECTOMY/FROZEN SECTION Bilateral 03/28/2024 Performed by Mundo Martinez MD at [facility] DILATION AND CURETTAGE OF UTERUS PARTIAL HYSTERECTOMY 10/01/2021 TUBAL LIGATION Past Medical History: Diagnosis Date Anxiety Asthma BV (bacterial vaginosis) Depression Migraine 15 days out of the month-receives an infusion every 3 months MRSA (methicillin resistant Staphylococcus aureus) In a buttocks wound in 8th grade Ovarian cyst, bilateral 03/25/2024 Prolonged emergence from general anesthesia Seizure ([facility]) Last one 1-20-2025 Family History Problem Relation Age of Onset Anesthesia problems Mother Prolonged emergence Cystic fibrosis Mother Anesthesia problems Father prolonged emergence Cystic fibrosis Father Ovarian cancer Maternal Aunt Social History Socioeconomic History Marital status: Significant Other Tobacco Use Smoking status: Never Smokeless tobacco: Never Vaping Use Vaping status: Never Used Substance and Sexual Activity Alcohol use: Not Currently Comment: social Drug use: Not Currently Sexual activity: Not Currently Partners: Male control/protection: Surgical Social Drivers of Health Financial Resource Strain: Low Risk (04/08/2024) Overall Financial Resource Strain (CARDIA) Difficulty of Paying Living Expenses: Not hard at all Food Insecurity: No Food Insecurity (04/09/2024) Hunger Screening Food Insecurity - Worry: Never True Food Insecurity - Inability: Never True Transportation Needs: No Transportation Needs (04/08/2024) PRAPARE - Transportation Lack of Transportation (Medical): No Lack of Transportation (Non-Medical): No Physical Activity: Insufficiently Active (01/23/2024) Received from [facility] Exercise Vital Sign Days of Exercise per Week: 7 days Minutes of Exercise per Session: 10 min Stress: Stress Concern Present (01/23/2024) Received from [facility] [employer]ational [employer] - Occupational Stress Questionnaire Feeling of Stress : Rather much Social Connections: Socially Integrated (01/23/2024) Received from [facility] Social Connection and Isolation Panel [NHANES] Frequency of Communication with Friends and Family: More than three times a week Frequency of Social Gatherings with Friends and Family: Twice a week Attends [employer] Services: More than 4 times per year Active Member of Clubs or Organizations: Yes Attends Club or Organization Meetings: More than 4 times per year Marital Status: Living with partner Interpersonal Safety: Not At Risk (04/08/2024) Humiliation, Afraid, Rape, and Kick questionnaire Fear of Current or Ex-Partner: No Emotionally Abused: No Physically Abused: No Sexually Abused: No Housing Instability: Low Risk (04/08/2024) Housing Instability Housing Instability: No Review of Symptoms: Pertinent items are noted in HPI. Objective: Ht 154.9 cm (5' 0.98 ) Wt 110 kg (242 lb 6.4 oz) LMP (LMP Unknown) BMI 45.83 kg/m ECO- Symptomatic; in bed <50% of the day General appearance: alert, appears stated age and cooperative Head: Normocephalic, without obvious abnormality, atraumatic Lungs: clear to auscultation bilaterally Heart: regular rate and rhythm, S1, S2 normal, no murmur, click, rub or gallop Abdomen: soft, nontender, incisions c/d/I, jperi-umbilical incision is open from I&D - packing was replaced, site irrigated, then repacked, wound measures about 1x1x1 cm - healthy granulation tissue without evidence of infection Pelvic: deferred to next visit Extremities: extremities normal, atraumatic, no cyanosis or edema Pulses: 2+ and symmetric Skin: Skin color, texture, turgor normal. No rashes or lesions Lymph nodes: Cervical, supraclavicular, and axillary nodes normal. Neurologic: Grossly normal Labs: Lab Results Component Value Date WBC 9.7 04/10/2024 HGB 11.1 (L) 04/10/2024 HCT 32.8 (L) 04/10/2024 MCV 86 04/10/2024 PLT 225 04/10/2024 Lab Results Component Value Date GLU 102 (H) 04/10/2024 CALCIUM 9.2 04/10/2024 SODIUM 141 04/10/2024 K 4.1 04/10/2024 CO2 27 04/10/2024 BUN 9 04/10/2024 CREATININE 0.55 04/10/2024 Lab Results Component Value Date CA125 7 03/18/2024 Assessment: Patient is diagnosed with Patient Active Problem List Diagnosis Encounter for observation of suspected anomaly not found LOC (loss of consciousness) ([facility]) Migraine with aura and without status migrainosus, not intractable Bilateral occipital neuralgia Asthma without status asthmaticus Anxiety Depressive disorder Seizure-like activity ([facility]) Simple partial seizure disorder ([facility]) Psychogenic nonepileptic seizure Acute cough S/P bilateral salpingo-oophorectomy Abdominal wall cellulitis Postoperative surgical complication involving genitourinary system associated with genitourinary procedure Plan: Post op care - peritonitis/abscess post operatively, on abx, labs trending down, wound bed healthy upon today's exam. Continue abx. Counseled on appropriate wound care. RTC in 2-3 weeks. Reviewed pathology which was benign. She will resume well woman care with Dr. Blas following post op care. Post op pain: Counseled on medication safety and appropriate pain management scheduled with the patient today. Advised against taking two different narcotics. We will transition to oxycodone 5 mg tablets every 4 hours. I explained that she may also use ibuprofen up to 3 times a day as well. Refills for both of these medications provided. Counseled her on strict instructions for taking these as directed and to report any side effects or ongoing pain. Menopausal symptoms: Currently on estradiol 0.0375 mg patches with persistent hot flashes and mood changes. I suspect her headaches could be related to or worsened by menopause and recommend increasing the dose to 0.05 mg patches twice weekly. She is having trouble with getting these to stick and currently using Tegaderm. Prescription for Tegaderm sent to pharmacy. Explained however that this is not a long-term strategy and she may require switching over to estradiol pills. Discussed the safety of ERT patches vs pills today with preference to keep her on patches if possible. Counseled her on proper application and use as well as potential side effects. *The patient has a documented plan of care to address pain. All questions were answered to the patient's satisfaction. She is agreeable to this plan of care. *This note was completed using a voice wardrobe specialty worker system. Every effort was made to ensure accuracy. However, inadvertent computerized wardrobe specialty worker errors may be present. .Total time spent was 35 minutes: Preparing to see the patient (e.g., review of tests) Performing a medically appropriate examination and/or evaluation Counseling and educating the patient/family/caregiver Ordering medications, tests, or procedures Documenting clinical information in the electronic or other health record Care coordination (not separately reported) Svetlana Ye PA-C, RD, IF MARY Cintron 04/16/24 [id number] documented in this encounter [facility] 04-10-2024 Progress note Formatting of t his note might be different from the original. DISCHARGE PLANNING NOTE Patient's RN reported that patient would like a rolling walker at discharge, Referral placed on [employer] with script and face to face documentation attached with a request of delivery to patient's room today for discharge. Tubing Mill Operator will follow for discharge transition - DESIREE QURESHI RN 04/10/24 3:05 PM [facility] 04-10-2024 Miscellaneous Notes DISCHARGE PLANNING NOTE Patient's RN reported that patient would like a rolling walker at discharge, Referral placed on [facility] [facility] with script and face to face documentation attached with a request of delivery to patient's room today for discharge. Tubing Mill Operator will follow for discharge transition - DESIREE QURESHI RN 04/10/24 3:05 PM DISCHARGE PLANNING NOTE Referral sent to multiple facilities or agencies due to patient insurance type/difficult placement/patient is without preference. DISCHARGE PLANNING NOTE Per RN during discharge transition rounds, barriers to discharge are: No barriers. [place] referral sent for [facility]. Patient states that she is not comfortable doing her own wound care. Has family that assist 4-5 times per week with wound care. Discharge Plan: Plan is home with [facility] if able to find company to agree to care. Will arrange outpatient wound care if unable to find accepting [facility]. Tubing Mill Operator will continue to follow for any discharge needs. - Nicky Buchanan RN 04/10/24 10:38 AM Problem: Pain Goal: Patient goal is pain score less than 4, able to rest, and participant in treatment plan as appropriate Description: INTERVENTIONS: 1. Encourage patient or legal u.s. representative to report early pain and ask for pain medicine when needed 2. Assess pain using appropriate pain scale and include the scale used when documenting 3. Administer analgesics based on type and severity of pain and evaluate response within appropriate time frame 4. Implement non-pharmacological measures as appropriate and evaluate response 5. Consider cultural and social influences on pain and pain management 6. Notify LIP if interventions ineffective or patient reports new pain 7. Monitor vital signs including pulse ox, end-tidal CO2 based on pain intervention 8. Reassess pain per policy 9. Teach patient or legal u.s. representative interventions for comforting Outcome: Progressing Note: Evaluation of progress towards goal: Medicated for pain as ordered. Continuing to monitor. Problem: Safety Goal: Patient will be injury free during hospitalization Description: INTERVENTIONS: 1. Assess patient's risk for falls and implement fall prevention plan of care per policy 2. Provide and maintain a safe environment 3. Proper use of double Identifiers 4. Medication administration using the 5 rights 5. Hand hygiene 6. Specimens are labeled at the bedside 7. Instruct patient/ patient u.s. representative about use of safety devices 8. Include patient/ patient u.s. representative in decisions related to safety Outcome: Progressing Note: Evaluation of progress towards goal: Patient remains free from injuries at this time. Continuing to monitor. Problem: Infection Goal: Absence of infection during hospitalization Description: INTERVENTIONS 1. Assess and monitor for signs and symptoms of infection. 2. Monitor lab/diagnostic results. 3. Monitor all insertion sites i.e., indwelling lines, tubes and drains. 4. Monitor endotracheal (as able) and nasal secretions for changes in amount and color. 5. Administer medications as ordered. 6. Instruct and encourage patient and family to use good hand hygiene technique. 7. Identify and instruct patient/patient u.s. representative in use of appropriate isolation precautions for identified infection/symptoms. 8. Provide and discuss with patient/patient u.s. representative on educational MDRO sheet. 9. Encourage and monitor nutritional status daily and consult admitted attorneys if indicated. 10. Implement neutropenic guidelines as needed. Outcome: Progressing Note: Evaluation of progress towards goal: Patient afebrile, vital signs stable at this time. Continuing to monitor. Problem: Knowledge Deficit Goal: Patient/patient u.s. representative demonstrates understanding of disease process, treatment plan, medications, and discharge instructions Description: INTERVENTIONS 1. Complete learning assessment and assess knowledge base 2. Provide teaching at level of understanding 3. Provide teaching via preferred learning method(s) Outcome: Progressing Note: Evaluation of progress towards goal: Patient verbalizes understanding of POC. Continuing to educate/review. Problem: Discharge Planning Goal: Discharge to post-acute care, other facility, or home with appropriate resources Description: Patient's goal is: INTERVENTIONS 1. Conduct assessment to determine patient/family and health care team treatment goals, and need for post-acute services based on payer coverage, community resources, and patient preferences, and barriers to discharge 2. Coordinate with Social work, Care Navigation, and Utilization Review to arrange appropriate level of services according to patient's needs based on patient preference and payer coverage in collaboration with the physician and health care team 3. Address psychosocial, clinical, and financial barriers to discharge as identified in assessment in conjunction with the patient/family and health care team 4. Consult appropriate ancillary services (i.e.. PT/OT/ST, etc) as needed 5. Communicate with and update the patient/family, physician, and health care team regarding progress on the discharge plan 6. Identify discharge learning needs (meds, wound care, etc). 7. Arrange for needed discharge transportation as appropriate Outcome: Progressing Note: Evaluation of progress towards goal: Discharge planning in progress. Continuing to monitor. Problem: Moderate - High Risk Fall Score Description: Nath Fall Score of =/> 25 or indicated by [facility] Assessment Goal: Patient should be free from fall Description: Interventions: 1. [place] to environment 2. Hourly rounds addressing the 4 P's (Pain, Positioning, Possessions, Potty) 3. Clear area of hazards (spills, clutter, electrical cords, unnecessary equipment) 4. Place equipment (bed & TV controls, call light, phone, urinal) within reach 5. Encourage patient to wear glasses and hearing aides as appropriate 6. Maintain bed in lowest position 7. Lock wheels on bed/wheelchair 8. Provide adequate lighting, including night light 9. Assess need for additional bedding, food/fluids, pain med's prior to sleep/routinely 10. Provide gripper slippers or personal non-skid footwear 11. Teach patient and patient u.s. representative to maintain environment for safety and engage in all aspects of fall prevention program 12. Remind patient to call for help before getting out of bed 13. Initiate bed/chair/exit alarms supportive devices as appropriate, (chair wedge, no-skid floor mat, raised edge mattress, hip protectors) 14. Locate patient bed assignment for optimal visualization 15. Evaluate and identify Safe Patient Handling Equipment needs 16. Provide supervision when out of bed or chair 17. Utilize gait belt as needed to assist with ambulation 18. Place adaptive equipment (cane, walker) within reach 19. Request patient u.s. representative bring adaptive equipment/mobility aids from home or obtain and provide as needed 20. Consult pharmacy regarding effects of med's affecting mobility, cognition, and alternatives 21. Obtain physician order for PT if risk factors associated with mobility are present 22. Obtain physician order for OT as appropriate 23. Utilize diversional activities 24. Educate patient and patient u.s. representative how to maintain a safe environment during visitation times (notify nurse prior to leaving bedside) 25. Consider appropriateness of medical or non-medical records specialist 26. Set up voiding schedule as appropriate (every 2 hours) Outcome: Progressing Note: Evaluation of progress towards goal: Patient remains free from falls at this time. Interventions in place to help prevent falls. Continuing to monitor. Problem: Low Risk Fall Score Description: Nath Fall Score of 0 - 24 or indicated by [facility] Assessment Goal: Patient should be free from fall Description: Interventions: 1. Bayside to environment 2. Hourly rounds addressing the 4 P's (Pain, Positioning, Possessions, Potty) 3. Clear area of hazards (spills, clutter, electrical cords, unnecessary equipment) 4. Place equipment (bed & TV controls, call light, phone, urinal) within reach 5. Encourage patient to wear glasses and hearing aides as appropriate 6. Maintain bed in lowest position 7. Lock wheels on bed/wheelchair 8. Provide adequate lighting, including night light 9. Assess need for additional bedding, food/fluids, pain med's prior to sleep/routinely 10. Provide gripper slippers or personal non-skid footwear 11. Teach patient and patient u.s. representative to maintain environment for safety and engage in all aspects of fall prevention program Outcome: Progressing Note: Evaluation of progress towards goal: Patient remains free from falls at this time. Interventions in place to help prevent falls. Continuing to monitor. Problem: Pain Goal: Patient goal is pain score less than 4, able to rest, and participant in treatment plan as appropriate Description: INTERVENTIONS: 1. Encourage patient or legal u.s. representative to report early pain and ask for pain medicine when needed 2. Assess pain using appropriate pain scale and include the scale used when documenting 3. Administer analgesics based on type and severity of pain and evaluate response within appropriate time frame 4. Implement non-pharmacological measures as appropriate and evaluate response 5. Consider cultural and social influences on pain and pain management 6. Notify LIP if interventions ineffective or patient reports new pain 7. Monitor vital signs including pulse ox, end-tidal CO2 based on pain intervention 8. Reassess pain per policy 9. Teach patient or legal u.s. representative interventions for comforting Outcome: Progressing Note: Evaluation of progress towards goal: Pharmacological and non-pharmacological interventions utilized to optimize pain mgmt Problem: Safety Goal: Patient will be injury free during hospitalization Description: INTERVENTIONS: 1. Assess patient's risk for falls and implement fall prevention plan of care per policy 2. Provide and maintain a safe environment 3. Proper use of double Identifiers 4. Medication administration using the 5 rights 5. Hand hygiene 6. Specimens are labeled at the bedside 7. Instruct patient/ patient u.s. representative about use of safety devices 8. Include patient/ patient u.s. representative in decisions related to safety Outcome: Progressing Note: Evaluation of progress towards goal: Pt remains injury free and compliant with safety measures Problem: Infection Goal: Absence of infection during hospitalization Description: INTERVENTIONS 1. Assess and monitor for signs and symptoms of infection. 2. Monitor lab/diagnostic results. 3. Monitor all insertion sites i.e., indwelling lines, tubes and drains. 4. Monitor endotracheal (as able) and nasal secretions for changes in amount and color. 5. Administer medications as ordered. 6. Instruct and encourage patient and family to use good hand hygiene technique. 7. Identify and instruct patient/patient u.s. representative in use of appropriate isolation precautions for identified infection/symptoms. 8. Provide and discuss with patient/patient u.s. representative on educational MDRO sheet. 9. Encourage and monitor nutritional status daily and consult admitted attorneys if indicated. 10. Implement neutropenic guidelines as needed. Outcome: Progressing Note: Evaluation of progress towards goal: Standard precautions and hand hygiene used to prevent infection Problem: Knowledge Deficit Goal: Patient/patient u.s. representative demonstrates understanding of disease process, treatment plan, medications, and discharge instructions Description: INTERVENTIONS 1. Complete learning assessment and assess knowledge base 2. Provide teaching at level of understanding 3. Provide teaching via preferred learning method(s) Outcome: Progressing Note: Evaluation of progress towards goal: pt understands above points Problem: Discharge Planning Goal: Discharge to post-acute care, other facility, or home with appropriate resources Description: Patient's goal is: INTERVENTIONS 1. Conduct assessment to determine patient/family and health care team treatment goals, and need for post-acute services based on payer coverage, community resources, and patient preferences, and barriers to discharge 2. Coordinate with Social work, Care Navigation, and Utilization Review to arrange appropriate level of services according to patient's needs based on patient preference and payer coverage in collaboration with the physician and health care team 3. Address psychosocial, clinical, and financial barriers to discharge as identified in assessment in conjunction with the patient/family and health care team 4. Consult appropriate ancillary services (i.e.. PT/OT/ST, etc) as needed 5. Communicate with and update the patient/family, physician, and health care team regarding progress on the discharge plan 6. Identify discharge learning needs (meds, wound care, etc). 7. Arrange for needed discharge transportation as appropriate Outcome: Progressing Note: Evaluation of progress towards goal: progressing toward dc home Problem: Inadequate Airway Clearance Goal: Patient will maintain patent airway Description: INTERVENTIONS 1. Assess and monitor breath sounds, cough and sputum (if present) 2. Monitor respiratory rate and oxygen saturation 3. Collaborate with respiratory therapy to administer medication, oxygen, and suitable airway clearance techniques as ordered 4. Position patient for maximum ventilatory efficiency; elevate head of bed at least 30 degrees if appropriate 5. Provide adequate fluid intake to liquify secretions if appropriate 6. Suction secretions as indicated to maintain patent airway 7. Instruct patient to turn, cough, and deep breathe; encourage incentive spirometer if indicated Outcome: Progressing Note: Evaluation of progress towards goal: patent airway maintained on room air and continuous pulse oximetry Problem: Anxiety Goal: Anxiety is at manageable level Description: Patient's goal is: INTERVENTIONS 1. Assess and monitor patient's anxiety level 2. Monitor for signs and symptoms of anxiety both physical and emotional (heart palpitations, chest pain, shortness of breath, headaches, nausea, feeling jumpy, restlessness, irritable, apprehensive) 3. Reorient/orient patient to unit/surroundings 4. Explain treatment plan 5. Explain tests/procedures prior to initiation 6. Encourage participation in care 7. Encourage verbalization of concerns/fears 8. Assess coping mechanisms 9. Assist in developing anxiety-reducing skills 10. Administer complimentary therapies 11. Manage patient's environment 12. Limit or eliminate stimulants such as caffeine and nicotine 13. Collaborate with ancillary departments 14. Include patient/patient u.s. representative in decisions related to anxiety Outcome: Progressing Note: Evaluation of progress towards goal: progressing Problem: Activity Intolerance/Impaired Mobility Goal: Mobility/activity is maintained at optimum level for patient Description: Patient's goal is: INTERVENTIONS 1. Assess and monitor patient barriers to mobility and need for assistive/adaptive devices 2. Assess patient's emotional response to limitations 3. Collaborate with interdisciplinary teams and initiate plans and interventions as ordered 4. Encourage independent activity per tolerance 5. Maintain proper body alignment 6. Perform active/passive ROM as tolerated/ordered 7. Coordinate activities to conserve energy 8. Reposition patient 9. Ensure adequate rest/sleep time 04/09/20241926 by PRATIBHA Tavarez Outcome: Progressing Note: Evaluation of progress towards goal: progressing, ambulation encouraged 04/09/20241926 by PRATIBHA Tavarez Reactivated Problem: Moderate - High Risk Fall Score Description: Nath Fall Score of =/> 25 or indicated by [facility] Assessment Goal: Patient should be free from fall Description: Interventions: 1. B[place]ide to environment 2. Hourly rounds addressing the 4 P's (Pain, Positioning, Possessions, Potty) 3. Clear area of hazards (spills, clutter, electrical cords, unnecessary equipment) 4. Place equipment (bed & TV controls, call light, phone, urinal) within reach 5. Encourage patient to wear glasses and hearing aides as appropriate 6. Maintain bed in lowest position 7. Lock wheels on bed/wheelchair 8. Provide adequate lighting, including night light 9. Assess need for additional bedding, food/fluids, pain med's prior to sleep/routinely 10. Provide gripper slippers or personal non-skid footwear 11. Teach patient and patient u.s. representative to maintain environment for safety and engage in all aspects of fall prevention program 12. Remind patient to call for help before getting out of bed 13. Initiate bed/chair/exit alarms supportive devices as appropriate, (chair wedge, no-skid floor mat, raised edge mattress, hip protectors) 14. Locate patient bed assignment for optimal visualization 15. Evaluate and identify Safe Patient Handling Equipment needs 16. Provide supervision when out of bed or chair 17. Utilize gait belt as needed to assist with ambulation 18. Place adaptive equipment (cane, walker) within reach 19. Request patient u.s. representative bring adaptive equipment/mobility aids from home or obtain and provide as needed 20. Consult pharmacy regarding effects of med's affecting mobility, cognition, and alternatives 21. Obtain physician order for PT if risk factors associated with mobility are present 22. Obtain physician order for OT as appropriate 23. Utilize diversional activities 24. Educate patient and patient u.s. representative how to maintain a safe environment during visitation times (notify nurse prior to leaving bedside) 25. Consider appropriateness of medical or non-medical records specialist 26. Set up voiding schedule as appropriate (every 2 hours) Outcome: Progressing Note: Evaluation of progress towards goal: Interventions in cares/safety in place Problem: Skin/Tissue Integrity - Adult Goal: Incisions, wounds, or drain sites healing without S/S of infection Description: INTERVENTIONS 1. ADMISSION & EVERY SHIFT: Assess and document risk factors for pressure ulcer development utilizing the Romeo/Romeo Q scale 2. Assess and document skin integrity 3. Assess and document dressing/incision, wound bed, drain sites and surrounding tissue 4. Implement wound care per orders 5. Initiate isolation precautions as appropriate 6. Initiate high risk precautions Outcome: Progressing Note: Evaluation of progress towards goal: Standard precautions and hand hygiene used to prevent infection. IV abx for draining lap site Problem: Inadequate Coping Goal: Demonstrates and verbalizes ability to cope effectively Description: Patient's goal is: INTERVENTIONS 1. Patient is able to verbalize feelings related to emotional state 2. Encourage verbalization of feelings, perceptions, fears, stressors, loss of loved ones 3. Encourage verbalization of problems out of their control 4. Encourage participation in care and self management 5. Inform patient of all treatment/care prior to providing care 6. Collaborate with pastoral/spiritual care, social work program coordinator, mental health counselor as needed. 7. Instruct patient on diversional activities such as physical activity, distraction, and deep breathing exercises to assist with coping 8. Involve patient's u.s. representative in care Outcome: Completed Note: Evaluation of progress towards goal: completed DISCHARGE PLANNING NOTE Update: [facility] unable to accept. Referrals for [facility] per patient choice sent. Waiting on reply. - Nicky Buchanan RN 04/09/24 2:59 PM DISCHARGE PLANNING NOTE Biotechnician met with patient, introduced self, and explained role. Patient educated on safe discharge plan. Pt admitted 04/08/2024 with Abdominal wall cellulitis [L03.311] Sepsis (CMS-HCC) [A41.9] Postoperative surgical complication involving genitourinary system associated with genitourinary procedure, unspecified complication [N99.89] per chart review. Consults: Obstetrics/Gynecology, surgery Discharge Barriers per Daily Transition Rounds and chart review: urine culture, blood cultures pending, IVabx Past Medical History: Diagnosis Date Anxiety Asthma BV (bacterial vaginosis) Depression Migraine 15 days out of the month-receives an infusion every 3 months MRSA (methicillin resistant Staphylococcus aureus) In a buttocks wound in 8th grade Ovarian cyst, bilateral 03/25/2024 Prolonged emergence from general anesthesia Seizure ([facility]) Last one 03-11-2024 Prior to admission patient was living with family and self care. Medical equipment patient used prior to admission includes: None. Patient denies need for transportation/ food/ prescription medication assistance resources. Patient lives with minor children and boyfriend. Has support from mother. Referral sent to [facility] per patient choice- her daughter has used them before. PCP: CORINE GOLD MD Pharmacy:[facility] in [place] PCP and pharmacy confirmed with patient. CN offered to assist with follow up appointment arrangements; patient declines - states will self-schedule follow up appointments. CORINE GOLD MD added to Follow Up Providers for Summary of Care communication. Per patient self-report: Drug use: no Smoking: no ETOH Use: no Current discharge plan is: Home with [facility] for wound care Services Requested: Services Requested Patient expects to be discharged to:: home Discharge Disposition: Home with home health services Does the patient need discharge transportation arranged?: No Patient choice offered: Yes List Provided: Yes [facility] List Provided: Home Care Visiting Physician/Provider: Corine Gold Goals: Goals home (pt-stated) Evaluation of progress towards goal: Patient stated goal is to return home with [facility] for assistance with wound care Will continue to follow as plan of care develops. CN discussed benefits and importance of medication compliance and follow ups. Please feel free to reach out for any discharge planning questions. - Nicky Buchanan RN 04/09/24 10:46 AM Problem: Pain Goal: Patient goal is pain score less than 4, able to rest, and participant in treatment plan as appropriate Description: INTERVENTIONS: 1. Encourage patient or legal u.s. representative to report early pain and ask for pain medicine when needed 2. Assess pain using appropriate pain scale and include the scale used when documenting 3. Administer analgesics based on type and severity of pain and evaluate response within appropriate time frame 4. Implement non-pharmacological measures as appropriate and evaluate response 5. Consider cultural and social influences on pain and pain management 6. Notify LIP if interventions ineffective or patient reports new pain 7. Monitor vital signs including pulse ox, end-tidal CO2 based on pain intervention 8. Reassess pain per policy 9. Teach patient or legal u.s. representative interventions for comforting Outcome: Progressing Note: Evaluation of progress towards goal: pt in abd pain. Dilaudid and saleem available Problem: Safety Goal: Patient will be injury free during hospitalization Description: INTERVENTIONS: 1. Assess patient's risk for falls and implement fall prevention plan of care per policy 2. Provide and maintain a safe environment 3. Proper use of double Identifiers 4. Medication administration using the 5 rights 5. Hand hygiene 6. Specimens are labeled at the bedside 7. Instruct patient/ patient u.s. representative about use of safety devices 8. Include patient/ patient u.s. representative in decisions related to safety Outcome: Progressing Note: Evaluation of progress towards goal: safety maintained. Using proper hand hygiene up entering and exiting room, and with glove changes. Problem: Infection Goal: Absence of infection during hospitalization Description: INTERVENTIONS 1. Assess and monitor for signs and symptoms of infection. 2. Monitor lab/diagnostic results. 3. Monitor all insertion sites i.e., indwelling lines, tubes and drains. 4. Monitor endotracheal (as able) and nasal secretions for changes in amount and color. 5. Administer medications as ordered. 6. Instruct and encourage patient and family to use good hand hygiene technique. 7. Identify and instruct patient/patient u.s. representative in use of appropriate isolation precautions for identified infection/symptoms. 8. Provide and discuss with patient/patient u.s. representative on educational MDRO sheet. 9. Encourage and monitor nutritional status daily and consult admitted attorneys if indicated. 10. Implement neutropenic guidelines as needed. Outcome: Progressing Note: Evaluation of progress towards goal: on iv atb. Cont to trend labs.fevers Problem: Knowledge Deficit Goal: Patient/patient u.s. representative demonstrates understanding of disease process, treatment plan, medications, and discharge instructions Description: INTERVENTIONS 1. Complete learning assessment and assess knowledge base 2. Provide teaching at level of understanding 3. Provide teaching via preferred learning method(s) Outcome: Progressing Note: Evaluation of progress towards goal: plan to cont iv atb. Problem: Discharge Planning Goal: Discharge to post-acute care, other facility, or home with appropriate resources Description: Patient's goal is: INTERVENTIONS 1. Conduct assessment to determine patient/family and health care team treatment goals, and need for post-acute services based on payer coverage, community resources, and patient preferences, and barriers to discharge 2. Coordinate with Social work, Care Navigation, and Utilization Review to arrange appropriate level of services according to patient's needs based on patient preference and payer coverage in collaboration with the physician and health care team 3. Address psychosocial, clinical, and financial barriers to discharge as identified in assessment in conjunction with the patient/family and health care team 4. Consult appropriate ancillary services (i.e.. PT/OT/ST, etc) as needed 5. Communicate with and update the patient/family, physician, and health care team regarding progress on the discharge plan 6. Identify discharge learning needs (meds, wound care, etc). 7. Arrange for needed discharge transportation as appropriate Outcome: Progressing Note: Evaluation of progress towards goal: dc plan to home Problem: Inadequate Airway Clearance Goal: Patient will maintain patent airway Description: INTERVENTIONS 1. Assess and monitor breath sounds, cough and sputum (if present) 2. Monitor respiratory rate and oxygen saturation 3. Collaborate with respiratory therapy to administer medication, oxygen, and suitable airway clearance techniques as ordered 4. Position patient for maximum ventilatory efficiency; elevate head of bed at least 30 degrees if appropriate 5. Provide adequate fluid intake to liquify secretions if appropriate 6. Suction secretions as indicated to maintain patent airway 7. Instruct patient to turn, cough, and deep breathe; encourage incentive spirometer if indicated Outcome: Progressing Note: Evaluation of progress towards goal: Problem: Anxiety Goal: Anxiety is at manageable level Description: Patient's goal is: INTERVENTIONS 1. Assess and monitor patient's anxiety level 2. Monitor for signs and symptoms of anxiety both physical and emotional (heart palpitations, chest pain, shortness of breath, headaches, nausea, feeling jumpy, restlessness, irritable, apprehensive) 3. Reorient/orient patient to unit/surroundings 4. Explain treatment plan 5. Explain tests/procedures prior to initiation 6. Encourage participation in care 7. Encourage verbalization of concerns/fears 8. Assess coping mechanisms 9. Assist in developing anxiety-reducing skills 10. Administer complimentary therapies 11. Manage patient's environment 12. Limit or eliminate stimulants such as caffeine and nicotine 13. Collaborate with ancillary departments 14. Include patient/patient u.s. representative in decisions related to anxiety Outcome: Progressing Note: Evaluation of progress towards goal: pt anxious/tearful. Calming environment provided Problem: Inadequate Coping Goal: Demonstrates and verbalizes ability to cope effectively Description: Patient's goal is: INTERVENTIONS 1. Patient is able to verbalize feelings related to emotional state 2. Encourage verbalization of feelings, perceptions, fears, stressors, loss of loved ones 3. Encourage verbalization of problems out of their control 4. Encourage participation in care and self management 5. Inform patient of all treatment/care prior to providing care 6. Collaborate with pastoral/spiritual care, social work program coordinator, mental health counselor as needed. 7. Instruct patient on diversional activities such as physical activity, distraction, and deep breathing exercises to assist with coping 8. Involve patient's u.s. representative in care Outcome: Progressing Note: Evaluation of progress towards goal: able to voice concerns. Problem: Moderate - High Risk Fall Score Description: Nath Fall Score of =/> 25 or indicated by [facility] Assessment Goal: Patient should be free from fall Description: Interventions: 1. [place] to environment 2. Hourly rounds addressing the 4 P's (Pain, Positioning, Possessions, Potty) 3. Clear area of hazards (spills, clutter, electrical cords, unnecessary equipment) 4. Place equipment (bed & TV controls, call light, phone, urinal) within reach 5. Encourage patient to wear glasses and hearing aides as appropriate 6. Maintain bed in lowest position 7. Lock wheels on bed/wheelchair 8. Provide adequate lighting, including night light 9. Assess need for additional bedding, food/fluids, pain med's prior to sleep/routinely 10. Provide gripper slippers or personal non-skid footwear 11. Teach patient and patient u.s. representative to maintain environment for safety and engage in all aspects of fall prevention program 12. Remind patient to call for help before getting out of bed 13. Initiate bed/chair/exit alarms supportive devices as appropriate, (chair wedge, no-skid floor mat, raised edge mattress, hip protectors) 14. Locate patient bed assignment for optimal visualization 15. Evaluate and identify Safe Patient Handling Equipment needs 16. Provide supervision when out of bed or chair 17. Utilize gait belt as needed to assist with ambulation 18. Place adaptive equipment (cane, walker) within reach 19. Request patient u.s. representative bring adaptive equipment/mobility aids from home or obtain and provide as needed 20. Consult pharmacy regarding effects of med's affecting mobility, cognition, and alternatives 21. Obtain physician order for PT if risk factors associated with mobility are present 22. Obtain physician order for OT as appropriate 23. Utilize diversional activities 24. Educate patient and patient u.s. representative how to maintain a safe environment during visitation times (notify nurse prior to leaving bedside) 25. Consider appropriateness of medical or non-medical records specialist 26. Set up voiding schedule as appropriate (every 2 hours) Outcome: Progressing Note: Evaluation of progress towards goal: free from falls, cont to use nonskid footwear with ambulation. Pt instructed to call out when appropriate to aid with ambulation Problem: Pain Goal: Patient goal is pain score less than 4, able to rest, and participant in treatment plan as appropriate Description: INTERVENTIONS: 1. Encourage patient or legal u.s. representative to report early pain and ask for pain medicine when needed 2. Assess pain using appropriate pain scale and include the scale used when documenting 3. Administer analgesics based on type and severity of pain and evaluate response within appropriate time frame 4. Implement non-pharmacological measures as appropriate and evaluate response 5. Consider cultural and social influences on pain and pain management 6. Notify LIP if interventions ineffective or patient reports new pain 7. Monitor vital signs including pulse ox, end-tidal CO2 based on pain intervention 8. Reassess pain per policy 9. Teach patient or legal u.s. representative interventions for comforting Note: Evaluation of progress towards goal: Pt receiving oral roxicodone q4H, IV dilaudid for breakthrough pain. Problem: Safety Goal: Patient will be injury free during hospitalization Description: INTERVENTIONS: 1. Assess patient's risk for falls and implement fall prevention plan of care per policy 2. Provide and maintain a safe environment 3. Proper use of double Identifiers 4. Medication administration using the 5 rights 5. Hand hygiene 6. Specimens are labeled at the bedside 7. Instruct patient/ patient u.s. representative about use of safety devices 8. Include patient/ patient u.s. representative in decisions related to safety Note: Evaluation of progress towards goal: Pt ID band in place, pt placed in private room, hand hygiene and standard precautions utilized. Pt safety maintained. Problem: Infection Goal: Absence of infection during hospitalization Description: INTERVENTIONS 1. Assess and monitor for signs and symptoms of infection. 2. Monitor lab/diagnostic results. 3. Monitor all insertion sites i.e., indwelling lines, tubes and drains. 4. Monitor endotracheal (as able) and nasal secretions for changes in amount and color. 5. Administer medications as ordered. 6. Instruct and encourage patient and family to use good hand hygiene technique. 7. Identify and instruct patient/patient u.s. representative in use of appropriate isolation precautions for identified infection/symptoms. 8. Provide and discuss with patient/patient u.s. representative on educational MDRO sheet. 9. Encourage and monitor nutritional status daily and consult admitted attorneys if indicated. 10. Implement neutropenic guidelines as needed. Note: Evaluation of progress towards goal: Wound culture pending. Iv zosyn, vanco, and flagyl administered 04/08. Problem: Knowledge Deficit Goal: Patient/patient u.s. representative demonstrates understanding of disease process, treatment plan, medications, and discharge instructions Description: INTERVENTIONS 1. Complete learning assessment and assess knowledge base 2. Provide teaching at level of understanding 3. Provide teaching via preferred learning method(s) Note: Evaluation of progress towards goal: pt verbalizes understanding of disease process and treatment plan. RN will continue to monitor. Problem: Discharge Planning Goal: Discharge to post-acute care, other facility, or home with appropriate resources Description: Patient's goal is: INTERVENTIONS 1. Conduct assessment to determine patient/family and health care team treatment goals, and need for post-acute services based on payer coverage, community resources, and patient preferences, and barriers to discharge 2. Coordinate with Social work, Care Navigation, and Utilization Review to arrange appropriate level of services according to patient's needs based on patient preference and payer coverage in collaboration with the physician and health care team 3. Address psychosocial, clinical, and financial barriers to discharge as identified in assessment in conjunction with the patient/family and health care team 4. Consult appropriate ancillary services (i.e.. PT/OT/ST, etc) as needed 5. Communicate with and update the patient/family, physician, and health care team regarding progress on the discharge plan 6. Identify discharge learning needs (meds, wound care, etc). 7. Arrange for needed discharge transportation as appropriate Note: Evaluation of progress towards goal: DC planning started upon admission. RN will continue to monitor. Problem: Anxiety Goal: Anxiety is at manageable level Description: Patient's goal is: INTERVENTIONS 1. Assess and monitor patient's anxiety level 2. Monitor for signs and symptoms of anxiety both physical and emotional (heart palpitations, chest pain, shortness of breath, headaches, nausea, feeling jumpy, restlessness, irritable, apprehensive) 3. Reorient/orient patient to unit/surroundings 4. Explain treatment plan 5. Explain tests/procedures prior to initiation 6. Encourage participation in care 7. Encourage verbalization of concerns/fears 8. Assess coping mechanisms 9. Assist in developing anxiety-reducing skills 10. Administer complimentary therapies 11. Manage patient's environment 12. Limit or eliminate stimulants such as caffeine and nicotine 13. Collaborate with ancillary departments 14. Include patient/patient u.s. representative in decisions related to anxiety Note: Evaluation of progress towards goal: Pt tearful and anxious upon initial assessment. 1x ativan IV administered. Home medications restarted. Problem: Inadequate Coping Goal: Demonstrates and verbalizes ability to cope effectively Description: Patient's goal is: INTERVENTIONS 1. Patient is able to verbalize feelings related to emotional state 2. Encourage verbalization of feelings, perceptions, fears, stressors, loss of loved ones 3. Encourage verbalization of problems out of their control 4. Encourage participation in care and self management 5. Inform patient of all treatment/care prior to providing care 6. Collaborate with pastoral/spiritual care, social work program coordinator, mental health counselor as needed. 7. Instruct patient on diversional activities such as physical activity, distraction, and deep breathing exercises to assist with coping 8. Involve patient's u.s. representative in care Note: Evaluation of progress towards goal: Emotional support provided by RN and pts SO. documented in this encounter [employer] 04-10-2024 History of Present illness Narrative The patient has a mobility limitation that significantly impairs their ability to participate in one or more mobility related activities of daily living in the home which prevents the beneficiary from completing the MRADL within a reasonable time frame. The patient is able to safely use the walker and the functional mobility deficit can be sufficiently resolved by the use of a walker. A cane has been tried and ruled out. George Pisano PGY1, Obstetric & Gynecology 2:59 PM Cosigned by Milad Hernandez MD at 04/10/2024 3:54 PM EST Associated attestation - Milad Hernandez MD - 04/10/2024 3:54 PM EST I was present with resident during the history and physical exam. I discussed the case with the resident and agree with the findings and plan as documented in the resident's note, unless otherwise specified. Gynecology Progress Note SUBJECTIVE: Patient is doing better. No acute events overnight. Pain is controlled. She is tolerating PO with nausea but no vomiting, Zofran helps. Pt is voiding spontaneously. Patient is ambulating. She is passing flatus and has had bowel movement. OBJECTIVE: Temp: [36.8 C (98.2 F)-37 C (98.6 F)] 36.8 C (98.2 F) Pulse: [74-92] 86 Resp: [16-18] 18 BP: (99-125)/(51-69) 99/51 SpO2: [90 %-98 %] 93 % O2 Device: Nasal cannula O2 Flow Rate (L/min): [0 L/min-2 L/min] 2 L/min Physical Exam Gen: AOx2 NAD Resp: CTAB, no respiratory distress CV: RRR Abd: soft, nondistended, tender in B/L lower quadrants, no rebound or guarding, +BS Inc: C/D/I small amount of serosanguinous fluid on her wound packing Ext: No edema nontender Results from last 7 days Lab Units 04/10/24 0626 04/09/24 0839 04/08/24 1343 WBC X10E9/L 9.7 13.4* 19.6* HEMOGLOBIN g/dL 11.1* 11.2* 12.8 HEMATOCRIT % 32.8* 32.9* 37.6 PLATELETS X10E9/L 225 232 290 Results from last 7 days Lab Units 04/10/24 0626 04/09/24 0839 04/08/24 1523 POTASSIUM mmol/L 4.1 4.0 4.0 CHLORIDE mmol/L 107 103 101 CO2 mmol/L 27 24 26 BUN mg/dL 9 9 10 CREATININE mg/dL 0.55 0.61 0.61 CALCIUM mg/dL 9.2 8.9 9.4 ALK PHOS U/L 80 -- -- ALT U/L 39* -- 59* AST U/L 16 -- 26 ASSESSMENT and PLAN: Pt is a 28 y.o. with history of RA BSO with lysis of adhesions on 03/28/24 c/b muscularis serosal injury to the rectum who was admitted for abdominal wall cellulitis. Abdominal wall cellulitis, concern for peritonitis POD#2 bedside I&D on 04/08 20cc purulent and sanguinous fluid Iodoform packing strips Pt feeling better. Pain and fever have improved subjectively Afebrile WBC trending down 19.6>13.4>9.7 F/u CBC pending Transition to PO Augmentin today 2. 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 Mixed bipolar I disorder Continue lamotrigine 200 mg BID 4. Migraine Zomig 5mg nasal solution 5.S/p BSO: estradiol patch 6. Anticipate DC later tonight Zain Pagan, MS3 [facility] Resident Attestation I have seen and evaluated the patient, and have also reviewed the documentation above. I have repeated and performed the chong portions of the physical exam and concur with the student's findings. I agree with the plan as noted above with any changes made as necessary. George Pisano MD [employer] Resident PGY-1 04/10/24 7:50 AM If questions please page gynecology pager, Cosigned by Milad Hernandez MD at 04/10/2024 8:56 AM EST Associated attestation - Milad Hernandez MD - 04/10/2024 8:56 AM EST Attending Attestation: I saw the patient. I participated and was physically present during the critical/chong portions of the service. I was directly involved in the management and treatment plan of the patient. I reviewed the resident's note. Additional Notes/Findings: Transition to PO antibiotics, home soon Pharmacokinetic Consult - Vancomycin Dosing April Nicholson is a 28 y.o. female for whom pharmacy has been consulted for vancomycin dosing for peritonitis. Today is day 2 of vancomycin therapy. Relevant clinical data and objective history reviewed: Allergies: Bee venom protein (honey bee), Adhesive, Dihydroergotamine, Adhesive tape-silicones, Carbamazepine, Ciprofloxacin, Clindamycin, Dexamethasone, Dextromethorphan, Keflex [cephalexin], Levetiracetam, Metoclopramide, Propranolol hcl, Pyrilamine-dextromethorphan, Vortioxetine, Zithromax [azithromycin], Buspirone, Compazine [prochlorperazine], and Reglan [metoclopramide hcl] Results from last 3 days Lab Units 04/09/24 0839 04/08/24 1523 04/08/24 1343 CREATININE mg/dL 0.61 0.61 -- BUN mg/dL 9 10 -- WBC X10E9/L 13.4* -- 19.6* HEMOGLOBIN g/dL 11.2* -- 12.8 HEMATOCRIT % 32.9* -- 37.6 MCV fL 85 -- 84 Temp Readings from Last 3 Encounters: 04/09/24 37.2 C (99 F) (Oral) 03/28/24 36.8 C (98.2 F) 03/25/24 36.8 C (98.2 F) (Temporal) Renal Parameters: No intake/output data recorded. Culture Data: Microbiology Results Procedure Component Value Units Date/Time Wound culture superficial includes gram stain [[id number]] Collected: 04/08/242024 Specimen: Wound Swab Updated: 04/08/242330 Gram Stain Result >25 WHITE BLOOD CELLS/LPF 0 SQUAMOUS EPITHELIAL CELLS/LPF FEW GRAM POSITIVE COCCI Culture PENDING Urine culture [[id number]] Collected: 04/08/24 1616 Specimen: Urine Updated: 04/08/24 1723 Blood culture [[id number]] Collected: 04/08/24 1411 Specimen: Blood Updated: 04/09/24 0229 Culture NO GROWTH <24 HRS SARS/FLU A+B/RSV by NAAT/Molecular (M4RT Collection Tube) [[id number]] Collected: 04/08/24 1403 Specimen: Nasopharynx Updated: 04/08/24 1506 FLU A PCR Negative FLU B PCR Negative RSV by PCR Negative SARS CoV 2 BY PCR Not Detected Blood culture [[id number]] Collected: 04/08/24 1343 Specimen: Blood Updated: 04/09/24 0215 Culture NO GROWTH <24 HRS Concurrent Antibiotics: Anti-infectives (From admission, onward) Start Dose/Rate Route Frequency Ordered Stop 04/09/24 1030 vancomycin (VANCOCIN) IVPB 1250 mg/250 mL in 0.9% sodium chloride (premix) 1,250 mg 167 mL/hr over 90 Minutes intravenous Every 8 hours 04/09/24 0956 Indication: Peritonitis Goal AUC/BEATRIZ: 400-600 Recent vancomycin regimens & levels during this admission: 04/08: Vancomycin 2,000 mg IV given once Previous vancomycin use prior to this admission? - None identified within EPIC Dosing Wt: - 113.3 kg = 1,250 mg (11 mg/kg) as a maintenance dose. When given 3 times daily this will yield a total daily dose of 3,750 mg of vancomycin Renal Function Assessment: - SrCr: 0.61 mg/dL (at baseline) - CrCl: 103 mL/min - UO: Not accurately charted at this time - Renal function appears to be appropriate for an every 8 hour regimen Micro: - No positive cultures at this time Assessment: - SIRS Criteria - WBC today is 13.4 from 19.6 yesterday while off steroids, CRP yesterday was 15.4, T<38C, HR>90, RR<20, SBP>100, on NC2L Plan for today - Based on the above information, I will initiate vancomycin 1,250 mg IV every 8 hours Pharmacy Dosing Service to follow serum concentrations and adjust as needed based on the patient's clinical status. Thank you for consulting. Nicholas Osuna, PharmD, [facility] [id number] Images from the original note were not included. General Surgery B Daily Progress Note Patient Name: April Nicholson Admit Date: 04/08/2024 Length of Stay: 1 Days Admitting Physician: Hai Admitting Day Resident Subjective: Patient underwent bedside I&D of abdominal wall with release of bloody purulent fluid last night. She reports significant pain and doesn't want her abdomen touched. She endorses nausea but denies vomiting. She has chills but denies fever. She denies chest pain and dyspnea. She has had a bowel movement and passed gas. She is tolerating oral intake. Objective: Vitals: 04/09/24 0545 BP: 112/64 Pulse: 78 Resp: 18 Temp: 37.2 C (99 F) SpO2: 99% Temp: [37.2 C (99 F)-37.5 C (99.5 F)] 37.2 C (99 F) Pulse: [78-115] 78 Resp: [14-20] 18 BP: (107-123)/(64-76) 112/64 SpO2: [95 %-99 %] 99 % O2 Device: Nasal cannula O2 Flow Rate (L/min): [2 L/min] 2 L/min Allergies Allergen Reactions Bee Venom Protein (Honey Bee) Anaphylaxis Adhesive Rash Dihydroergotamine GI Disturbance and Hives Other Reaction(s): Intolerance Chest tightness, numbness and tingling in bilateral extremities, increased anxiety Adhesive Tape-Silicones Carbamazepine Other (See Comments) anxiety Ciprofloxacin Hives Clindamycin Hives Dexamethasone Hives Dextromethorphan Hives Keflex [Cephalexin] Hives Levetiracetam Hives and Itching Metoclopramide Hives and Other (See Comments) Propranolol Hcl Hives and Other (See Comments) Migrianes Pyrilamine-Dextromethorphan Hives Vortioxetine Hives Zithromax [Azithromycin] Hives Buspirone Hives Compazine [Prochlorperazine] Anxiety Reglan [Metoclopramide Hcl] Itching and Anxiety No rash Intake/Output last 3 shifts: No intake/output data recorded. Intake/Output this shift: No intake/output data recorded. Dietary Orders (From admission, onward) Start Ordered 04/08/241824 Adult diet Regular Texture Diet effective now Question: Diet Type: Answer: Regular Texture 04/08/241823 Physical Exam GEN: Anxious and distressed appearing HEENT: Normocephalic, atraumatic, EOMI, sclera anicteric RESP: Nonlabored, no wheeze CV: RRR, adequate peripheral perfusion GI: Soft, non distended. Improving erythema. Wound packing in place supraumbilical incision MSK: Full ROM, no deformities SKIN: Warm, dry, no rash Neuro: No focal deficits, A&Ox3 Laboratory Data: Lab Results Component Value Date WBC 19.6 (H) 04/08/2024 HGB 12.8 04/08/2024 HCT 37.6 04/08/2024 MCV 84 04/08/2024 PLT 290 04/08/2024 Lab Results Component Value Date GLU 94 04/08/2024 CALCIUM 9.4 04/08/2024 K 4.0 04/08/2024 CO2 26 04/08/2024 CL 101 04/08/2024 BUN 10 04/08/2024 CREATININE 0.61 04/08/2024 No results found for: AMYLASE Lab Results Component Value Date LIPASE 10 (L) 02/09/2024 Lab Results Component Value Date ALT 59 (H) 04/08/2024 AST 26 04/08/2024 ALKPHOS 51 03/18/2024 Lab Results Component Value Date INR 1.3 (H) 04/08/2024 INR 1.1 03/03/2020 PROTIME 14.7 (H) 04/08/2024 PROTIME 12.6 03/03/2020 diazePAM, 5 mg, oral, BID lamoTRIgine, 200 mg, oral, BID lidocaine PF, 10 mL, infiltration, Once lidocaine PF, 10 mL, infiltration, Once lithium carbonate, 600 mg, oral, Nightly traZODone, 300 mg, oral, Nightly acetaminophen HYDROmorphone ibuprofen iohexoL ondansetron ODT oxyCODONE sodium chloride Imaging: CT abdomen and pelvis with contrast CT ABDOMEN AND PELVIS W CONT HISTORY: Abdominal pain, oophorectomy 03/28/2024 and lysis of adhesions COMPARISON: 02/10/2024 and earlier TECHNIQUE: CT images of abdomen and pelvis obtained following administration of contrast. Automated exposure control was utilized. All CT scans at this facility use dose modulation, iterative reconstruction, and/or weight based dosing when appropriate to reduce radiation dose to as low as reasonably achievable. FINDINGS: This examination is markedly compromised by body habitus ABDOMINAL/PELVIC WALL: Soft tissue attenuation in the epigastric and umbilical area (series 602 image 101). No distinct fluid collection. LOWER THORAX: Bilateral lower airspace disease with left worse than right. ESOPHAGUS/STOMACH: The esophagus is nondilated. LIVER: Normal in size and configuration. No suspicious mass. Focal fatty infiltration near the falciform which is unchanged compared to 12/20/2021. BILE DUCTS: No intrahepatic or extrahepatic bile duct dilation. GALLBLADDER: The gallbladder surgically absent. PANCREAS: No abnormal attenuation. No main pancreatic duct dilation. SPLEEN: No splenomegaly. ADRENAL GLANDS: No nodules. KIDNEYS/URETERS: No hydroureteronephrosis. The kidneys enhance symmetrically. No suspicious renal mass. BLADDER: Underdistended. REPRODUCTIVE ORGANS: Status post partial hysterectomy and bilateral salpingo-oophorectomy. BOWEL: No disproportionate dilation of the small or large bowel. The appendix is surgically absent. Colonic diverticulosis. PERITONEUM/RETROPERITONEUM: Focal inflammation along the inferior course of the ureters within the pelvis. LYMPH NODES: No abdominal or pelvic lymphadenopathy. VESSELS: No abdominal aortic aneurysm. BONES: No suspicious osseous lesions. IMPRESSION: * Soft tissue attenuation of the anterior abdominal wall without distinct fluid collection. This may represent developing cellulitis or seroma status postop. Cannot exclude abscess formation within this process, and cannot exclude necrotizing fasciitis in this setting and findings best assessed in combination with other clinical data. * Bilateral lower lung airspace disease with differential diagnosis including atelectasis, or pneumonia. Findings best assessed in combination with other clinical data.. * * Indeterminate focal fatty stranding within the pelvis which may represent some peritoneal fluid axial image 89 series 302 lateral to the rectum on both sides. This may represent some postoperative fluid but I cannot exclude some early abscess formation and certainly cannot exclude bowel setting. Close clinical and follow-up CT abdomen pelvis using oral contrast might be considered if indicated clinically. THIS REPORT CONTAINS A SIGNIFICANT RESULT AND/OR RECOMMENDATION, WHICH REQUIRES THE ATTENTION OF THE LICENSED CAREGIVER RESPONSIBLE FOR THIS PATIENT. THEREFORE, I SPECIFICALLY DESIGNATED THIS REPORT TO BE TELEPHONED BY THE RADIOLOGY DEPARTMENT. * Approved by Kevin Lezmaa DO on 04/08/2024 3:35 PM I, Kyle Solorio MD have personally reviewed the image(s) and agree with and/or edited the report Finalized by Kyle Solorio MD on 04/08/2024 4:09 PM X-ray chest 1 view XR CHEST 1 VW History: Short of breath. One view study. Comparison: 01/23/2024 Impression: * Lungs are now clear. No focal airspace disease or infiltrate is appreciated. No acute process is seen. Finalized by Renetta Andrea MD on 04/08/2024 2:12 PM Assessment: April Nicholson is a 28 y.o. 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 Status post I&D of the abdominal wall abscess 04/08. Plan: Dressing change by surgical team today. Further dressing changes per nursing. Wound cultures sent, follow up results. Continue vancomycin for now. Check MRSA PCR. Further antibiotic recommendations pending cultures. Rest of care per primary. Sherri Miranda, MS3 [facility] 04/09/24 7:25 AM Jaziel Crump MD PGY-3 Surgery Resident 04/09/24 7:25 AM Cosigned by Benjamin Francis MD at 04/09/2024 10:19 PM EST Associated attestation - Benjamin Francis MD - 04/09/2024 10:19 PM EST documented in this encounter [facility] [employer] [facility] 04-10-2024 Progress note Formatting of t his note might be different from the original. DISCHARGE PLANNING NOTE Referral sent to multiple facilities or agencies due to patient insurance type/difficult placement/patient is without preference. [facility] 04-10-2024 Progress note Formatting of t his note might be different from the original. DISCHARGE PLANNING NOTE Per RN during discharge transition rounds, barriers to discharge are: No barriers. [place] referral sent for [facility]. Patient states that she is not comfortable doing her own wound care. Has family that assist 4-5 times per week with wound care. Discharge Plan: Plan is home with HCC if able to find company to agree to care. Will arrange outpatient wound care if unable to find accepting HCC. [employer] will continue to follow for any discharge needs. - Nicky Buchanan RN 04/10/24 10:38 AM [facility] [employer] [facility] 04-10-2024 Plan of care note Problem: Pain Goal: Patient goal is pain score less than 4, able to rest, and participant in treatment plan as appropriate Description: INTERVENTIONS: 1. Encourage patient or legal u.s. representative to report early pain and ask for pain medicine when needed 2. Assess pain using appropriate pain scale and include the scale used when documenting 3. Administer analgesics based on type and severity of pain and evaluate response within appropriate time frame 4. Implement non-pharmacological measures as appropriate and evaluate response 5. Consider cultural and social influences on pain and pain management 6. Notify LIP if interventions ineffective or patient reports new pain 7. Monitor vital signs including pulse ox, end-tidal CO2 based on pain intervention 8. Reassess pain per policy 9. Teach patient or legal u.s. representative interventions for comforting Outcome: Progressing Note: Evaluation of progress towards goal: Medicated for pain as ordered. Continuing to monitor. Problem: Safety Goal: Patient will be injury free during hospitalization Description: INTERVENTIONS: 1. Assess patient's risk for falls and implement fall prevention plan of care per policy 2. Provide and maintain a safe environment 3. Proper use of double Identifiers 4. Medication administration using the 5 rights 5. Hand hygiene 6. Specimens are labeled at the bedside 7. Instruct patient/ patient u.s. representative about use of safety devices 8. Include patient/ patient u.s. representative in decisions related to safety Outcome: Progressing Note: Evaluation of progress towards goal: Patient remains free from injuries at this time. Continuing to monitor. Problem: Infection Goal: Absence of infection during hospitalization Description: INTERVENTIONS 1. Assess and monitor for signs and symptoms of infection. 2. Monitor lab/diagnostic results. 3. Monitor all insertion sites i.e., indwelling lines, tubes and drains. 4. Monitor endotracheal (as able) and nasal secretions for changes in amount and color. 5. Administer medications as ordered. 6. Instruct and encourage patient and family to use good hand hygiene technique. 7. Identify and instruct patient/patient u.s. representative in use of appropriate isolation precautions for identified infection/symptoms. 8. Provide and discuss with patient/patient u.s. representative on educational MDRO sheet. 9. Encourage and monitor nutritional status daily and consult admitted attorneys if indicated. 10. Implement neutropenic guidelines as needed. Outcome: Progressing Note: Evaluation of progress towards goal: Patient afebrile, vital signs stable at this time. Continuing to monitor. Problem: Knowledge Deficit Goal: Patient/patient u.s. representative demonstrates understanding of disease process, treatment plan, medications, and discharge instructions Description: INTERVENTIONS 1. Complete learning assessment and assess knowledge base 2. Provide teaching at level of understanding 3. Provide teaching via preferred learning method(s) Outcome: Progressing Note: Evaluation of progress towards goal: Patient verbalizes understanding of POC. Continuing to educate/review. Problem: Discharge Planning Goal: Discharge to post-acute care, other facility, or home with appropriate resources Description: Patient's goal is: INTERVENTIONS 1. Conduct assessment to determine patient/family and health care team treatment goals, and need for post-acute services based on payer coverage, community resources, and patient preferences, and barriers to discharge 2. Coordinate with Social work, Care Navigation, and Utilization Review to arrange appropriate level of services according to patient's needs based on patient preference and payer coverage in collaboration with the physician and health care team 3. Address psychosocial, clinical, and financial barriers to discharge as identified in assessment in conjunction with the patient/family and health care team 4. Consult appropriate ancillary services (i.e.. PT/OT/ST, etc) as needed 5. Communicate with and update the patient/family, physician, and health care team regarding progress on the discharge plan 6. Identify discharge learning needs (meds, wound care, etc). 7. Arrange for needed discharge transportation as appropriate Outcome: Progressing Note: Evaluation of progress towards goal: Discharge planning in progress. Continuing to monitor. Problem: Moderate - High Risk Fall Score Description: Nath Fall Score of =/> 25 or indicated by [facility] Assessment Goal: Patient should be free from fall Description: Interventions: 1. [place] to environment 2. Hourly rounds addressing the 4 P's (Pain, Positioning, Possessions, Potty) 3. Clear area of hazards (spills, clutter, electrical cords, unnecessary equipment) 4. Place equipment (bed & TV controls, call light, phone, urinal) within reach 5. Encourage patient to wear glasses and hearing aides as appropriate 6. Maintain bed in lowest position 7. Lock wheels on bed/wheelchair 8. Provide adequate lighting, including night light 9. Assess need for additional bedding, food/fluids, pain med's prior to sleep/routinely 10. Provide gripper slippers or personal non-skid footwear 11. Teach patient and patient u.s. representative to maintain environment for safety and engage in all aspects of fall prevention program 12. Remind patient to call for help before getting out of bed 13. Initiate bed/chair/exit alarms supportive devices as appropriate, (chair wedge, no-skid floor mat, raised edge mattress, hip protectors) 14. Locate patient bed assignment for optimal visualization 15. Evaluate and identify Safe Patient Handling Equipment needs 16. Provide supervision when out of bed or chair 17. Utilize gait belt as needed to assist with ambulation 18. Place adaptive equipment (cane, walker) within reach 19. Request patient u.s. representative bring adaptive equipment/mobility aids from home or obtain and provide as needed 20. Consult pharmacy regarding effects of med's affecting mobility, cognition, and alternatives 21. Obtain physician order for PT if risk factors associated with mobility are present 22. Obtain physician order for OT as appropriate 23. Utilize diversional activities 24. Educate patient and patient u.s. representative how to maintain a safe environment during visitation times (notify nurse prior to leaving bedside) 25. Consider appropriateness of medical or non-medical records specialist 26. Set up voiding schedule as appropriate (every 2 hours) Outcome: Progressing Note: Evaluation of progress towards goal: Patient remains free from falls at this time. Interventions in place to help prevent falls. Continuing to monitor. Problem: Low Risk Fall Score Description: Nath Fall Score of 0 - 24 or indicated by [facility] Assessment Goal: Patient should be free from fall Description: Interventions: 1. [place] to environment 2. Hourly rounds addressing the 4 P's (Pain, Positioning, Possessions, Potty) 3. Clear area of hazards (spills, clutter, electrical cords, unnecessary equipment) 4. Place equipment (bed & TV controls, call light, phone, urinal) within reach 5. Encourage patient to wear glasses and hearing aides as appropriate 6. Maintain bed in lowest position 7. Lock wheels on bed/wheelchair 8. Provide adequate lighting, including night light 9. Assess need for additional bedding, food/fluids, pain med's prior to sleep/routinely 10. Provide gripper slippers or personal non-skid footwear 11. Teach patient and patient u.s. representative to maintain environment for safety and engage in all aspects of fall prevention program Outcome: Progressing Note: Evaluation of progress towards goal: Patient remains free from falls at this time. Interventions in place to help prevent falls. Continuing to monitor. [facility] 04-10-2024 Hospital course Narrative Inpatient Discharge Summary BRIEF OVERVIEW Admitting Provider: Primary Care Physician at Discharge: Admission Date: 04/08/2024 Discharge Date: 04/10/24 Procedures: Bedside I&D for abdominal abscess HPI: April Nicholson is a 28 y.o. female who presented to [facility] ED on 04/08/2024 with hx of abdominal pain and fever. 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 The patient stated that she completed a 7-day course of clindamycin post-operatively. One day prior to presentation to the ED, the patient had been evaluated at [facility] and was given 1 dose of bactrim before being discharged. The patient stated that she spiked a fever of 105 F at home and complained of severe abdominal pain along previous incision sites, especially in the umbilical and LLQ areas. She also had purulent, serosanguinous fluid discharge from the umbilical incision site one day prior to admission. The patient had been using tylenol, motrin, and roxicodone since discharge for pain, which remained uncontrolled. Hospital course: Patient was given 1000 mg IV ceftriaxone on 04/08 for possible peritonitis and started on IV Zosyn and IV Vanc. Surgery team was consulted and bedside I&D was performed of a 2 cm abdominal wall abscess deep to umbilical port incision on 04/08/2024 with release of 20 cc bloody purulent fluid, wound cultures were sent, gram stain showed few gram positive cocci. The wound was packed with lodoform strips and dressings placed, which were changed at appropriate intervals. The patient was transitioned to PO Augmentin. Patient subjectively improved as her pain was better controlled with PRN pain medication and nausea controlled with PRN Zofran. Patient was spontaneously ambulating on assessments. She passed flatus and had a bowel movement during inpatient stay. Imaging Obtained: 04/08/2024: X-ray Chest 1 view: Lungs are clear. No focal airspace disease or infiltrate is appreciated. No acute process is seen. 04/08/2024: CT A/P: Soft tissue attenuation of the anterior abdominal wall without distinct fluid collection. This may represent developing cellulitis or seroma status postop. Cannot exclude abscess formation within this process, and cannot exclude necrotizing fasciitis in this setting and findings best assessed in combination with other clinical data. * Bilateral lower lung airspace disease with differential diagnosis including atelectasis, or pneumonia. Findings best assessed in combination with other clinical data.. * Indeterminate focal fatty stranding within the pelvis which may represent some peritoneal fluid axial image 89 series 302 lateral to the rectum on both sides. This may represent some postoperative fluid but I cannot exclude some early abscess formation and certainly cannot exclude bowel setting. Close clinical and follow-up CT abdomen pelvis using oral contrast might be considered if indicated clinically. Medications given: IV Ceftriaxone given at 16:03 on 04/08, stopped bag at 16:33 on 04/08 IV Zosyn 4.5 g in 0.9% NaCl 50 mL given 22:29 04/08, stopped 22:59 04/08 IV metronidazole 500 mg/100 mL in iso-osmotic NaCl given 16:46 04/08 IV Vancomycin IVPB 1250 mg/250 mL in 0.9% NaCl started 12:15-13:45 04/09, then 21:33-23:03 04/09, 04:40-06:10 04/10, Dc'ed on 04/10 Diazepam 5 mg given at 22:18 on 04/08, given twice (morning and night) on 04/09, and given at 8:28 on 04/10 Diphenhydramine 25 mg injection given 15:58 on 04/08 Diphenhydramine 12.5 mg injection given 11:59 on 04/09 Estradiol 0.0375 mg/24 hr patch given 15:58 on 04/08 IV Dilaudid 1 mg mg given at 16:40 and 20:20 on 04/08, 4x on 04/09 IM Toradol 15 mg injection given at 11:59 on 04/09 Lamotrigine 200 mg given BID during inpatient stay [place] carbonate 600 mg PO given qd during inpatient stay Lorazepam 1 mg injection given at 20:11 04/08 IV Morphine 4 mg injection given 14:04/08 Zofran 4 mg IV given 14:16 04/08 0.9% NaCl 2,000 mL fluid bolus given 14:04/08 Trazadone 300 mg given 01:17and 21:37 04/09 Oxycodone 5 mg PO given 2x 04/08, 3x 04/09, 1x 04/10 Labs: On admission WBCs 19.6 -> 13.4 -> 9.7, neutrophil predominant Hb 12.8 -> 11.2 -> 11.1 Lactate 0.8 CRP- 15.4 Coag: INR 1.3, Protime 14.7 BMP- WNL Micro: Blood Cultures- No growth Wound Culture- gram stain few gram positive cocci Nasal MRSA PCR- negative Respiratory pathogen panel- Negative Urine culture- normal urogenital janiya Prescriptions given at discharge: Augmentin 875-125 mg PO TID for 7 days Condition of patient at discharge: Stable, good. Special instructions to the patient family: Pelvic rest for 6 weeks. Please call if fever greater than 100.4, chills, malodorous vaginal discharge, or other signs of infection. Please call if chest pain, shortness of breath, asymmetrical leg swelling or calf tenderness develops. Please call if bleeding through more than 1 pad per hour. No driving while taking narcotic pain medications. Disposition: Home. FU with Svetlana Ye outpatient on Monday04/15/24 @9:00 am. Zaki Gupta 04/10/24 3rd Year Medical Student, [facility] Resident Attestation I have seen and evaluated the patient, and have also reviewed the documentation above. I have repeated and performed the chong portions of the physical exam and concur with the student's findings. I agree with the plan as noted above with any changes made as necessary. George Pisano MD [employer] Resident PGY-1 04/10/24 9:39 AM Cosigned by Milad Hernandez MD at 04/10/2024 10:59 AM EST Associated attestation - Milad Hernandez MD - 04/10/2024 10:59 AM EST I was present with resident during the history and physical exam. I discussed the case with the resident and agree with the findings and plan as documented in the resident's note, unless otherwise specified. documented in this encounter [facility] 04-09-2024 Plan of care note Problem: Pain Goal: Patient goal is pain score less than 4, able to rest, and participant in treatment plan as appropriate Description: INTERVENTIONS: 1. Encourage patient or legal u.s. representative to report early pain and ask for pain medicine when needed 2. Assess pain using appropriate pain scale and include the scale used when documenting 3. Administer analgesics based on type and severity of pain and evaluate response within appropriate time frame 4. Implement non-pharmacological measures as appropriate and evaluate response 5. Consider cultural and social influences on pain and pain management 6. Notify LIP if interventions ineffective or patient reports new pain 7. Monitor vital signs including pulse ox, end-tidal CO2 based on pain intervention 8. Reassess pain per policy 9. Teach patient or legal u.s. representative interventions for comforting Outcome: Progressing Note: Evaluation of progress towards goal: Pharmacological and non-pharmacological interventions utilized to optimize pain mgmt Problem: Safety Goal: Patient will be injury free during hospitalization Description: INTERVENTIONS: 1. Assess patient's risk for falls and implement fall prevention plan of care per policy 2. Provide and maintain a safe environment 3. Proper use of double Identifiers 4. Medication administration using the 5 rights 5. Hand hygiene 6. Specimens are labeled at the bedside 7. Instruct patient/ patient u.s. representative about use of safety devices 8. Include patient/ patient u.s. representative in decisions related to safety Outcome: Progressing Note: Evaluation of progress towards goal: Pt remains injury free and compliant with safety measures Problem: Infection Goal: Absence of infection during hospitalization Description: INTERVENTIONS 1. Assess and monitor for signs and symptoms of infection. 2. Monitor lab/diagnostic results. 3. Monitor all insertion sites i.e., indwelling lines, tubes and drains. 4. Monitor endotracheal (as able) and nasal secretions for changes in amount and color. 5. Administer medications as ordered. 6. Instruct and encourage patient and family to use good hand hygiene technique. 7. Identify and instruct patient/patient u.s. representative in use of appropriate isolation precautions for identified infection/symptoms. 8. Provide and discuss with patient/patient u.s. representative on educational MDRO sheet. 9. Encourage and monitor nutritional status daily and consult admitted attorneys if indicated. 10. Implement neutropenic guidelines as needed. Outcome: Progressing Note: Evaluation of progress towards goal: Standard precautions and hand hygiene used to prevent infection Problem: Knowledge Deficit Goal: Patient/patient u.s. representative demonstrates understanding of disease process, treatment plan, medications, and discharge instructions Description: INTERVENTIONS 1. Complete learning assessment and assess knowledge base 2. Provide teaching at level of understanding 3. Provide teaching via preferred learning method(s) Outcome: Progressing Note: Evaluation of progress towards goal: pt understands above points Problem: Discharge Planning Goal: Discharge to post-acute care, other facility, or home with appropriate resources Description: Patient's goal is: INTERVENTIONS 1. Conduct assessment to determine patient/family and health care team treatment goals, and need for post-acute services based on payer coverage, community resources, and patient preferences, and barriers to discharge 2. Coordinate with Social work, Care Navigation, and Utilization Review to arrange appropriate level of services according to patient's needs based on patient preference and payer coverage in collaboration with the physician and health care team 3. Address psychosocial, clinical, and financial barriers to discharge as identified in assessment in conjunction with the patient/family and health care team 4. Consult appropriate ancillary services (i.e.. PT/OT/ST, etc) as needed 5. Communicate with and update the patient/family, physician, and health care team regarding progress on the discharge plan 6. Identify discharge learning needs (meds, wound care, etc). 7. Arrange for needed discharge transportation as appropriate Outcome: Progressing Note: Evaluation of progress towards goal: progressing toward dc home Problem: Inadequate Airway Clearance Goal: Patient will maintain patent airway Description: INTERVENTIONS 1. Assess and monitor breath sounds, cough and sputum (if present) 2. Monitor respiratory rate and oxygen saturation 3. Collaborate with respiratory therapy to administer medication, oxygen, and suitable airway clearance techniques as ordered 4. Position patient for maximum ventilatory efficiency; elevate head of bed at least 30 degrees if appropriate 5. Provide adequate fluid intake to liquify secretions if appropriate 6. Suction secretions as indicated to maintain patent airway 7. Instruct patient to turn, cough, and deep breathe; encourage incentive spirometer if indicated Outcome: Progressing Note: Evaluation of progress towards goal: patent airway maintained on room air and continuous pulse oximetry Problem: Anxiety Goal: Anxiety is at manageable level Description: Patient's goal is: INTERVENTIONS 1. Assess and monitor patient's anxiety level 2. Monitor for signs and symptoms of anxiety both physical and emotional (heart palpitations, chest pain, shortness of breath, headaches, nausea, feeling jumpy, restlessness, irritable, apprehensive) 3. Reorient/orient patient to unit/surroundings 4. Explain treatment plan 5. Explain tests/procedures prior to initiation 6. Encourage participation in care 7. Encourage verbalization of concerns/fears 8. Assess coping mechanisms 9. Assist in developing anxiety-reducing skills 10. Administer complimentary therapies 11. Manage patient's environment 12. Limit or eliminate stimulants such as caffeine and nicotine 13. Collaborate with ancillary departments 14. Include patient/patient u.s. representative in decisions related to anxiety Outcome: Progressing Note: Evaluation of progress towards goal: progressing Problem: Activity Intolerance/Impaired Mobility Goal: Mobility/activity is maintained at optimum level for patient Description: Patient's goal is: INTERVENTIONS 1. Assess and monitor patient barriers to mobility and need for assistive/adaptive devices 2. Assess patient's emotional response to limitations 3. Collaborate with interdisciplinary teams and initiate plans and interventions as ordered 4. Encourage independent activity per tolerance 5. Maintain proper body alignment 6. Perform active/passive ROM as tolerated/ordered 7. Coordinate activities to conserve energy 8. Reposition patient 9. Ensure adequate rest/sleep time 04/09/20241926 by PRATIBHA Tavarez Outcome: Progressing Note: Evaluation of progress towards goal: progressing, ambulation encouraged 04/09/20241926 by PRATIBHA Tavarez Reactivated Problem: Moderate - High Risk Fall Score Description: Nath Fall Score of =/> 25 or indicated by [facility] Assessment Goal: Patient should be free from fall Description: Interventions: 1. [place] to environment 2. Hourly rounds addressing the 4 P's (Pain, Positioning, Possessions, Potty) 3. Clear area of hazards (spills, clutter, electrical cords, unnecessary equipment) 4. Place equipment (bed & TV controls, call light, phone, urinal) within reach 5. Encourage patient to wear glasses and hearing aides as appropriate 6. Maintain bed in lowest position 7. Lock wheels on bed/wheelchair 8. Provide adequate lighting, including night light 9. Assess need for additional bedding, food/fluids, pain med's prior to sleep/routinely 10. Provide gripper slippers or personal non-skid footwear 11. Teach patient and patient u.s. representative to maintain environment for safety and engage in all aspects of fall prevention program 12. Remind patient to call for help before getting out of bed 13. Initiate bed/chair/exit alarms supportive devices as appropriate, (chair wedge, no-skid floor mat, raised edge mattress, hip protectors) 14. Locate patient bed assignment for optimal visualization 15. Evaluate and identify Safe Patient Handling Equipment needs 16. Provide supervision when out of bed or chair 17. Utilize gait belt as needed to assist with ambulation 18. Place adaptive equipment (cane, walker) within reach 19. Request patient u.s. representative bring adaptive equipment/mobility aids from home or obtain and provide as needed 20. Consult pharmacy regarding effects of med's affecting mobility, cognition, and alternatives 21. Obtain physician order for PT if risk factors associated with mobility are present 22. Obtain physician order for OT as appropriate 23. Utilize diversional activities 24. Educate patient and patient u.s. representative how to maintain a safe environment during visitation times (notify nurse prior to leaving bedside) 25. Consider appropriateness of medical or non-medical records specialist 26. Set up voiding schedule as appropriate (every 2 hours) Outcome: Progressing Note: Evaluation of progress towards goal: Interventions in cares/safety in place Problem: Skin/Tissue Integrity - Adult Goal: Incisions, wounds, or drain sites healing without S/S of infection Description: INTERVENTIONS 1. ADMISSION & EVERY SHIFT: Assess and document risk factors for pressure ulcer development utilizing the Romeo/Romeo Q scale 2. Assess and document skin integrity 3. Assess and document dressing/incision, wound bed, drain sites and surrounding tissue 4. Implement wound care per orders 5. Initiate isolation precautions as appropriate 6. Initiate high risk precautions Outcome: Progressing Note: Evaluation of progress towards goal: Standard precautions and hand hygiene used to prevent infection. IV abx for draining lap site Problem: Inadequate Coping Goal: Demonstrates and verbalizes ability to cope effectively Description: Patient's goal is: INTERVENTIONS 1. Patient is able to verbalize feelings related to emotional state 2. Encourage verbalization of feelings, perceptions, fears, stressors, loss of loved ones 3. Encourage verbalization of problems out of their control 4. Encourage participation in care and self management 5. Inform patient of all treatment/care prior to providing care 6. Collaborate with pastoral/spiritual care, social work program coordinator, mental health counselor as needed. 7. Instruct patient on diversional activities such as physical activity, distraction, and deep breathing exercises to assist with coping 8. Involve patient's u.s. representative in care Outcome: Completed Note: Evaluation of progress towards goal: completed [facility] 04-09-2024 Progress note Formatting of t his note might be different from the original. DISCHARGE PLANNING NOTE Update: [facility] unable to accept. [facility]errals for [facility] per patient choice sent. Waiting on reply. - Nicky Buchanan RN 04/09/24 2:59 PM [facility] 04-09-2024 Progress note Formatting of t his note is different from the original. DISCHARGE PLANNING NOTE Biotechnician met with patient, introduced self, and explained role. Patient educated on safe discharge plan. Pt admitted 04/08/2024 with Abdominal wall cellulitis [L03.311] Sepsis ([facility]) [A41.9] Postoperative surgical complication involving genitourinary system associated with genitourinary procedure, unspecified complication [N99.89] per chart review. Consults: Obstetrics/Gynecology, surgery Discharge Barriers per Daily Transition Rounds and chart review: urine culture, blood cultures pending, IVabx Past Medical History: Diagnosis Date Anxiety Asthma BV (bacterial vaginosis) Depression Migraine 15 days out of the month-receives an infusion every 3 months MRSA (methicillin resistant Staphylococcus aureus) In a buttocks wound in 8th grade Ovarian cyst, bilateral 03/25/2024 Prolonged emergence from general anesthesia Seizure ([facility]) Last one 03-11-2024 Prior to admission patient was living with family and self care. Medical equipment patient used prior to admission includes: None. Patient denies need for transportation/ food/ prescription medication assistance resources. Patient lives with minor children and boyfriend. Has support from mother. Referral sent to [facility] per patient choice- her daughter has used them before. PCP: CORINE GOLD MD Pharmacy:[facility] in [place] PCP and pharmacy confirmed with patient. CN offered to assist with follow up appointment arrangements; patient declines - states will self-schedule follow up appointments. CORINE GOLD MD added to Follow Up Providers for Summary of Care communication. Per patient self-report: Drug use: no Smoking: no ETOH Use: no Current discharge plan is: Home with [facility] for wound care Services Requested: Services Requested Patient expects to be discharged to:: home Discharge Disposition: Home with home health services Does the patient need discharge transportation arranged?: No Patient choice offered: Yes List Provided: Yes [facility] List Provided: Home Care Visiting Physician/Provider: Corine Gold Goals: Goals home (pt-stated) Evaluation of progress towards goal: Patient stated goal is to return home with [facility] for assistance with wound care Will continue to follow as plan of care develops. CN discussed benefits and importance of medication compliance and follow ups. Please feel free to reach out for any discharge planning questions. - Nicky Buchanan RN 04/09/24 10:46 AM [facility] [employer] [facility] 04-09-2024 Consult note Formatting of th is note is different from the original. Gynecology Oncology Consultation Date of Admission: 04/08/2024 1:04 PM Chief Complaint : Chief Complaint Patient presents with Flu Symptoms Abdominal Pain History of Present Illness : April Nicholson is a 28 y.o. female POD#11 from RA BSO and lysis of adhesion c/b by muscularis serosal injury to the rectum who presents to [facility] ED due to abdominal pain that began 3-4 days after her surgery. She reports that in addition to her abdominal pain, she has been having nausea and fever/chills. Her temperatures have been ranging between 103-105 F. Patient has also noticed increase in erythema surrounding incision sites around her umbilicus and left surgical sites (image in patient chart). She reports that she is having a constant 10 out of 10 left upper and lower quadrant pain and that she had purulent, green discharge from the umbilical incision site yesterday. Patient notes that she has been using tylenol, motrin, and roxicodone since discharge, but her pain has not been controlled well. She states that she saw Dr. Blas on 04/01 and finished her 7 day course of clindamycin. She went to [place] ED yesterday and was given 1 dose of Bactrim. She was discharged from the ED with tylenol and motrin. Patient denies vaginal bleeding and discharge. She denies urinary symptoms, diarrhea, and constipation. She denies SOB and headache. She states that her last seizure episode was on 03/28 post OP. Patient has received 1 morphine injection 4 mg and 1 Zofran injection 4 mg upon arrival at the ED. Patient reports that she continues to have 10 out of 10 pain. This morning patient is still having pain. She reports some chills overnight. Patient isn't on any estrogen replacement. Cancer History: 10/01/2021: vaginal partial hysterectomy d/t abdominal and vaginal pain and cystectomy d/t hemorrhagic cysts 07/21/2022: laparoscopic exploration for lysis of adhesion 01/20/2023: diagnostic laparoscopy with extensive lysis of omental adhesion 02/10/2024: CTAP 4.7 cm thin-walled cystic lesion. Possible hemorrhagic cyst of right ovary 03/28/24: RA lysis of adhesions and BSO and RA laparoscopic repair of colon enterotomy Past Medical History : Past Medical History: Diagnosis Date Anxiety Asthma BV (bacterial vaginosis) Depression Migraine 15 days out of the month-receives an infusion every 3 months MRSA (methicillin resistant Staphylococcus aureus) In a buttocks wound in 8th grade Ovarian cyst, bilateral 03/25/2024 Prolonged emergence from general anesthesia Seizure ([facility]) Last one 03-11-2024 Past Surgical History: Past Surgical History: Procedure Laterality Date APPENDECTOMY SECTION CHOLECYSTECTOMY АЛЕКСАНДР RAMIRES LYSIS OF ADHESIONS N/A 03/28/2024 Performed by Mundo Martinez MD at [facility] АЛЕКСАНДР WALLIS5 LYSIS OF ADHESIONS N/A 03/28/2024 Performed by Jesse Sultana MD at [facility] DAVINCI DV5 SALPINGO OOPHORECTOMY/FROZEN SECTION Bilateral 03/28/2024 Performed by Mundo Martinez MD at [facility] DILATION AND CURETTAGE OF UTERUS PARTIAL HYSTERECTOMY 10/01/2021 TUBAL LIGATION Allergies: Allergies Allergen Reactions Bee Venom Protein (Honey Bee) Anaphylaxis Adhesive Rash Dihydroergotamine GI Disturbance and Hives Other Reaction(s): Intolerance Chest tightness, numbness and tingling in bilateral extremities, increased anxiety Adhesive Tape-Silicones Carbamazepine Other (See Comments) anxiety Ciprofloxacin Hives Clindamycin Hives Dexamethasone Hives Dextromethorphan Hives Keflex [Cephalexin] Hives Levetiracetam Hives and Itching Metoclopramide Hives and Other (See Comments) Propranolol Hcl Hives and Other (See Comments) Migrianes Pyrilamine-Dextromethorphan Hives Vortioxetine Hives Zithromax [Azithromycin] Hives Buspirone Hives Compazine [Prochlorperazine] Anxiety Reglan [Metoclopramide Hcl] Itching and Anxiety No rash Current Medications: Current Facility-Administered Medications: acetaminophen (TYLENOL EXTRA STRENGTH) tablet 1,000 mg, 1,000 mg, oral, Q6H PRN, Katina Block DO diazePAM (VALIUM) tablet 5 mg, 5 mg, oral, BID, Katina Block DO, 5 mg at 04/08/24 2218 HYDROmorphone (DILAUDID) injection 1 mg, 1 mg, intravenous, Q4H PRN, Katina Block DO, 1 mg at 04/09/24 0013 ibuprofen (MOTRIN) tablet 800 mg, 800 mg, oral, Q6H PRN, Katina Block DO iohexoL (OMNIPAQUE) 300 mg iodine/mL 30 mL, 30 mL, oral, Once in imaging, Rohan Velazquez MD lamoTRIgine (LaMICtal) tablet 200 mg, 200 mg, oral, BID, Katina Block DO, 200 mg at 04/08/24 2218 lidocaine PF (XYLOCAINE) 10 mg/mL (1 %) injection 100 mg, 10 mL, infiltration, Once, George Pisano MD lidocaine PF (XYLOCAINE) 10 mg/mL (1 %) injection 100 mg, 10 mL, infiltration, Once, George Pisano MD lithium carbonate tablet 600 mg, 600 mg, oral, Nightly, Katina Block DO, 600 mg at 04/08/24 2218 ondansetron ODT (ZOFRAN ODT) disintegrating tablet 4 mg, 4 mg, oral, Q8H PRN, Katina Block DO oxyCODONE (ROXICODONE) immediate release tablet 5 mg, 5 mg, oral, Q4H PRN, Katina Block DO, 5 mg at 04/09/24 0704 sodium chloride 0.9 % flush 10 mL, 10 mL, intravenous, PRN, Yordy Melton, DO, 10 mL at 04/08/24 1525 traZODone (DESYREL) tablet 300 mg, 300 mg, oral, Nightly, Katina Block DO, 300 mg at 04/09/24 0117 Social History: Social History Socioeconomic History Marital status: Significant Other Spouse name: Not on file Number of children: Not on file Years of education: Not on file Highest education level: Not on file Occupational History Not on file Tobacco Use Smoking status: Never Smokeless tobacco: Never Vaping Use Vaping status: Never Used Substance and Sexual Activity Alcohol use: Not Currently Comment: social Drug use: Not Currently Sexual activity: Not Currently Partners: Male control/protection: Surgical Other Topics Concern Not on file Social History Narrative Not on file Social Drivers of Health Financial Resource Strain: Low Risk (04/08/2024) Overall Financial Resource Strain (CARDIA) Difficulty of Paying Living Expenses: Not hard at all Food Insecurity: No Food Insecurity (04/08/2024) Hunger Screening Food Insecurity - Worry: Never True Food Insecurity - Inability: Never True Transportation Needs: No Transportation Needs (04/08/2024) PRAPARE - Transportation Lack of Transportation (Medical): No Lack of Transportation (Non-Medical): No Physical Activity: Insufficiently Active (01/23/2024) Received from [facility] Exercise Vital Sign Days of Exercise per Week: 7 days Minutes of Exercise per Session: 10 min Stress: Stress Concern Present (01/23/2024) Received from [facility] [place] [facility] Occupational Health - Occupational Stress Questionnaire Feeling of Stress : Rather much Social Connections: Socially Integrated (01/23/2024) Received from [facility] Social Connection and Isolation Panel [NHANES] Frequency of Communication with Friends and Family: More than three times a week Frequency of Social Gatherings with Friends and Family: Twice a week Attends [employer] Services: More than 4 times per year Active Member of Clubs or Organizations: Yes Attends Club or Organization Meetings: More than 4 times per year Marital Status: Living with partner Interpersonal Safety: Not At Risk (04/08/2024) Humiliation, Afraid, Rape, and Kick questionnaire Fear of Current or Ex-Partner: No Emotionally Abused: No Physically Abused: No Sexually Abused: No Housing Instability: Low Risk (04/08/2024) Housing Instability Housing Instability: No Family History: Family History Problem Relation Age of Onset Anesthesia problems Mother Prolonged emergence Cystic fibrosis Mother Anesthesia problems Father prolonged emergence Cystic fibrosis Father Ovarian cancer Maternal Aunt Physical Exam: Vital Signs: Temp: [37.2 C (99 F)-37.5 C (99.5 F)] 37.2 C (99 F) Pulse: [78-115] 78 Resp: [14-20] 18 BP: (107-123)/(64-76) 112/64 SpO2: [95 %-99 %] 99 % O2 Device: Nasal cannula O2 Flow Rate (L/min): [2 L/min] 2 L/min General Appearance: Moderate distress Head: Normocephalic, without obvious abnormality, atraumatic Lung: not in respiratory distress Abdomen: left upper and lower quadrant tenderness with light palpation,guarding. Erythema noted at umbilical and left surgical site, wound packed Extremities: no edema, redness or tenderness in the calves or thighs Skin: erythema at umbilicus and left surgical site. Erythema size is approximately 15 cm x 6 cm Neurologic: Alert and oriented x3 Laboratory data: I have reviewed the following labs: Recent Results (from the past 72 hours) CBC auto differential Collection Time: 04/08/24 1:43 PM Result Value Ref Range White Blood Cells 19.6 (H) 4.0 - 11.0 X10E9/L RBC count 4.46 3.80 - 5.20 X10E12/L Hemoglobin 12.8 11.7 - 15.5 g/dL Hematocrit 37.6 35 - 47 % MCV 84 80 - 100 fL MCH 28.7 27 - 34 pg MCHC 34.1 32 - 36 g/dL RDW 13.4 11.5 - 15.0 % Platelets 290 150 - 450 X10E9/L MPV 8.5 7 - 12 fL % neutrophils 88.2 % % lymphocytes 6.7 % % monocytes 3.5 % % eosinophils 1.1 % % Basophils 0.5 % Neutrophils Absolute (A) 17.2 (H) 1.5 - 6.6 X10E9/L Lymphocytes Absolute 1.3 1.0 - 3.5 X10E9/L Monocytes Absolute 0.7 0 - 0.9 X10E9/L Eosinophils Absolute 0.2 0.0 - 0.4 X10E9/L Basophils Absolute 0.1 0.0 - 0.2 X10E9/L Blood culture Collection Time: 04/08/24 1:43 PM Specimen: Blood Result Value Ref Range Culture NO GROWTH <24 HRS SARS/FLU A+B/RSV by NAAT/Molecular (M4RT Collection Tube) Collection Time: 04/08/24 2:03 PM Result Value Ref Range FLU A PCR Negative Negative^Negative FLU B PCR Negative Negative^Negative RSV by PCR Negative Negative^Negative SARS CoV 2 BY PCR Not Detected Not Detected^Not Detected Blood culture Collection Time: 04/08/24 2:11 PM Specimen: Blood RIGHT~AC Result Value Ref Range Culture NO GROWTH <24 HRS Troponin I, High Sensitivity Collection Time: 04/08/24 2:11 PM Result Value Ref Range Troponin I, High Sensitivity 2 <16 ng/L POCT Nursing Urine Macroscopic UA Collection Time: 04/08/24 2:59 PM Result Value Ref Range Specific gravity SELMA 1.020 1.003 - 1.035 Leukocyte esterase SELMA Negative Negative^Negative Nitrite SELMA Negative Negative^Negative Ph 7.5 5.0 - 8.5 Protein SELMA Trace (A) Negative^Negative mg/dL Urine glucose SELMA Negative Negative^Negative mg/dL Ketones SELMA Negative Negative^Negative mg/dL Urobilinogen SELMA 0.2 <1.1 eu/dL Bilirubin SELMA Negative Negative^Negative Hemoglobin SELMA Trace (A) Negative^Negative Troponin I, High Sensitivity 1 Hour Collection Time: 04/08/24 3:23 PM Result Value Ref Range 1 Hour Trop I, High Sensitivity 2 <16 ng/L Basic Metabolic Panel Collection Time: 04/08/24 3:23 PM Result Value Ref Range Sodium 137 134 - 146 mmol/L Potassium, Bld 4.0 3.5 - 5.0 mmol/L Chloride 101 98 - 109 mmol/L CO2 26 22 - 32 mmol/L Anion gap 10 5 - 15 mmol/L BUN 10 5 - 23 mg/dL Creatinine 0.61 0.40 - 1.00 mg/dL Glucose 94 65 - 99 mg/dL Calcium 9.4 8.5 - 10.5 mg/dL eGFR (CKD-EPI)non-race dependent >90 >59 ml/min/1.73sq.m Lactate w/ Reflex Collection Time: 04/08/24 3:23 PM Result Value Ref Range Lactate w/ Reflex 0.8 0.4 - 2.0 mmol/L Liver panel Collection Time: 04/08/24 3:23 PM Result Value Ref Range Alkaline phosphatase 88 39 - 130 U/L AST 26 0 - 41 U/L ALT 59 (H) 0 - 31 U/L Total Bilirubin 0.7 0.3 - 1.2 mg/dL Bilirubin, direct 0.0 0.0 - 0.4 mg/dL Albumin 3.9 3.2 - 5.3 g/dL Total Protein 7.3 6.0 - 8.0 g/dL Magnesium Collection Time: 04/08/24 3:23 PM Result Value Ref Range Magnesium 1.8 1.8 - 2.6 mg/dL Thyroid profile includes TSH FT4 Collection Time: 04/08/24 3:23 PM Result Value Ref Range TSH 0.54 0.49 - 4.67 uIU/mL T4, free 0.62 0.61 - 1.60 ng/dL C-reactive protein Collection Time: 04/08/24 3:23 PM Result Value Ref Range CRP 15.4 (H) 0.000 - 0.744 mg/dL Protime & INR Collection Time: 04/08/24 3:57 PM Result Value Ref Range Protime 14.7 (H) 9.8 - 13.2 sec Inr 1.3 (H) 0.8 - 1.1 APTT Collection Time: 04/08/24 3:57 PM Result Value Ref Range aPTT 35 26 - 37 sec Wound culture superficial includes gram stain Collection Time: 02/17/25 8:25 PM Specimen: Wound Swab ABDOMEN~INCISION Result Value Ref Range Gram Stain Result >25 WHITE BLOOD CELLS/LPF Gram Stain Result 0 SQUAMOUS EPITHELIAL CELLS/LPF Gram Stain Result FEW GRAM POSITIVE COCCI Culture PENDING Lab Results Component Value Date HGBA1C 5.0 01/11/2024 No results found for: PREALBUMIN Lab Results Component Value Date CA125 7 03/18/2024 No components found for: HE4 Lab Results Component Value Date CEA 0.9 03/18/2024 No components found for: CA19-9 Imaging Studies: CXR (04/08): no acute processes noted. Assessment/Plan: April Nicholson is a 28 y.o. female POD #12 from RA BSO and lysis of adhesion c/b by muscularis serosal injury to the rectum presenting for abdominal pain, possible peritonitis. Possible Peritonitis Afebrile, tachycardic, normotensive Lactate 0.8 WBC 19.6 Fu am labs-pending sepsis workup - blood and urine culture pending Lactate: 0.8 CRP 15.4 UA: Trace protein / Trace hgb Obtain CTAP oral and IV contrast CTAP 04/08: Soft tissue attenuation of the anterior abdominal wall without distinct fluid collection. This may represent developing cellulitis or seroma status postop. Cannot exclude abscess formation within this process, and cannot exclude necrotizing fasciitis in this setting and findings best assessed in combination with other clinical data. Bilateral lower lung airspace disease with differential diagnosis including atelectasis, or pneumonia. CXR (04/08): lungs are clear. No acute processes seen. Start broad spectrum abx Zosyn and Vancomycin s/p 1 morphine injection 4 mg at ED Non-epileptiform seizure Continue home meds: lamotrigine 200 mg BID and diazepam 5 mg BID Mixed bipolar I disorder Continue home med: lamotrigine 200 mg BID Migraine Continue Zomig 5 mg nasal solution 5.POD#1 bedside I&D: 20cc of purulent and sanguinous fluid Iodoform packing strips CARIE Dasilva If questions or concerns, please contact via [employer] pager at [phone]. Resident Attestation I have seen and evaluated the patient, and have also reviewed the documentation above. I have repeated and performed the chong portions of the physical exam and concur with the student's findings. I agree with the plan as noted above with any changes made as necessary. George Pisano MD [employer] Resident PGY-1 04/09/24 7:52 AM Cosigned by Milad Hernandez MD at 04/09/2024 8:56 AM EST Associated attestation - Milad Hernandez MD - 04/09/2024 8:56 AM EST Attending Attestation: I saw the patient. I participated and was physically present during the critical/chong portions of the service. I was directly involved in the management and treatment plan of the patient. I reviewed the resident's note. Additional Notes/Findings: Continue antibiotics, cellulitis is improving, improve pain control. Will initiate transdermal estrogen for vasomotor symptoms. [facility] 04-09-2024 Plan of care note Problem: Pain Goal: Patient goal is pain score less than 4, able to rest, and participant in treatment plan as appropriate Description: INTERVENTIONS: 1. Encourage patient or legal u.s. representative to report early pain and ask for pain medicine when needed 2. Assess pain using appropriate pain scale and include the scale used when documenting 3. Administer analgesics based on type and severity of pain and evaluate response within appropriate time frame 4. Implement non-pharmacological measures as appropriate and evaluate response 5. Consider cultural and social influences on pain and pain management 6. Notify LIP if interventions ineffective or patient reports new pain 7. Monitor vital signs including pulse ox, end-tidal CO2 based on pain intervention 8. Reassess pain per policy 9. Teach patient or legal u.s. representative interventions for comforting Outcome: Progressing Note: Evaluation of progress towards goal: pt in abd pain. Dilaudid and saleem available Problem: Safety Goal: Patient will be injury free during hospitalization Description: INTERVENTIONS: 1. Assess patient's risk for falls and implement fall prevention plan of care per policy 2. Provide and maintain a safe environment 3. Proper use of double Identifiers 4. Medication administration using the 5 rights 5. Hand hygiene 6. Specimens are labeled at the bedside 7. Instruct patient/ patient u.s. representative about use of safety devices 8. Include patient/ patient u.s. representative in decisions related to safety Outcome: Progressing Note: Evaluation of progress towards goal: safety maintained. Using proper hand hygiene up entering and exiting room, and with glove changes. Problem: Infection Goal: Absence of infection during hospitalization Description: INTERVENTIONS 1. Assess and monitor for signs and symptoms of infection. 2. Monitor lab/diagnostic results. 3. Monitor all insertion sites i.e., indwelling lines, tubes and drains. 4. Monitor endotracheal (as able) and nasal secretions for changes in amount and color. 5. Administer medications as ordered. 6. Instruct and encourage patient and family to use good hand hygiene technique. 7. Identify and instruct patient/patient u.s. representative in use of appropriate isolation precautions for identified infection/symptoms. 8. Provide and discuss with patient/patient u.s. representative on educational MDRO sheet. 9. Encourage and monitor nutritional status daily and consult admitted attorneys if indicated. 10. Implement neutropenic guidelines as needed. Outcome: Progressing Note: Evaluation of progress towards goal: on iv atb. Cont to trend labs.fevers Problem: Knowledge Deficit Goal: Patient/patient u.s. representative demonstrates understanding of disease process, treatment plan, medications, and discharge instructions Description: INTERVENTIONS 1. Complete learning assessment and assess knowledge base 2. Provide teaching at level of understanding 3. Provide teaching via preferred learning method(s) Outcome: Progressing Note: Evaluation of progress towards goal: plan to cont iv atb. Problem: Discharge Planning Goal: Discharge to post-acute care, other facility, or home with appropriate resources Description: Patient's goal is: INTERVENTIONS 1. Conduct assessment to determine patient/family and health care team treatment goals, and need for post-acute services based on payer coverage, community resources, and patient preferences, and barriers to discharge 2. Coordinate with Social work, Care Navigation, and Utilization Review to arrange appropriate level of services according to patient's needs based on patient preference and payer coverage in collaboration with the physician and health care team 3. Address psychosocial, clinical, and financial barriers to discharge as identified in assessment in conjunction with the patient/family and health care team 4. Consult appropriate ancillary services (i.e.. PT/OT/ST, etc) as needed 5. Communicate with and update the patient/family, physician, and health care team regarding progress on the discharge plan 6. Identify discharge learning needs (meds, wound care, etc). 7. Arrange for needed discharge transportation as appropriate Outcome: Progressing Note: Evaluation of progress towards goal: dc plan to home Problem: Inadequate Airway Clearance Goal: Patient will maintain patent airway Description: INTERVENTIONS 1. Assess and monitor breath sounds, cough and sputum (if present) 2. Monitor respiratory rate and oxygen saturation 3. Collaborate with respiratory therapy to administer medication, oxygen, and suitable airway clearance techniques as ordered 4. Position patient for maximum ventilatory efficiency; elevate head of bed at least 30 degrees if appropriate 5. Provide adequate fluid intake to liquify secretions if appropriate 6. Suction secretions as indicated to maintain patent airway 7. Instruct patient to turn, cough, and deep breathe; encourage incentive spirometer if indicated Outcome: Progressing Note: Evaluation of progress towards goal: Problem: Anxiety Goal: Anxiety is at manageable level Description: Patient's goal is: INTERVENTIONS 1. Assess and monitor patient's anxiety level 2. Monitor for signs and symptoms of anxiety both physical and emotional (heart palpitations, chest pain, shortness of breath, headaches, nausea, feeling jumpy, restlessness, irritable, apprehensive) 3. Reorient/orient patient to unit/surroundings 4. Explain treatment plan 5. Explain tests/procedures prior to initiation 6. Encourage participation in care 7. Encourage verbalization of concerns/fears 8. Assess coping mechanisms 9. Assist in developing anxiety-reducing skills 10. Administer complimentary therapies 11. Manage patient's environment 12. Limit or eliminate stimulants such as caffeine and nicotine 13. Collaborate with ancillary departments 14. Include patient/patient u.s. representative in decisions related to anxiety Outcome: Progressing Note: Evaluation of progress towards goal: pt anxious/tearful. Calming environment provided Problem: Inadequate Coping Goal: Demonstrates and verbalizes ability to cope effectively Description: Patient's goal is: INTERVENTIONS 1. Patient is able to verbalize feelings related to emotional state 2. Encourage verbalization of feelings, perceptions, fears, stressors, loss of loved ones 3. Encourage verbalization of problems out of their control 4. Encourage participation in care and self management 5. Inform patient of all treatment/care prior to providing care 6. Collaborate with pastoral/spiritual care, social work program coordinator, mental health counselor as needed. 7. Instruct patient on diversional activities such as physical activity, distraction, and deep breathing exercises to assist with coping 8. Involve patient's u.s. representative in care Outcome: Progressing Note: Evaluation of progress towards goal: able to voice concerns. Problem: Moderate - High Risk Fall Score Description: Nath Fall Score of =/> 25 or indicated by [facility] Assessment Goal: Patient should be free from fall Description: Interventions: 1. [place] to environment 2. Hourly rounds addressing the 4 P's (Pain, Positioning, Possessions, Potty) 3. Clear area of hazards (spills, clutter, electrical cords, unnecessary equipment) 4. Place equipment (bed & TV controls, call light, phone, urinal) within reach 5. Encourage patient to wear glasses and hearing aides as appropriate 6. Maintain bed in lowest position 7. Lock wheels on bed/wheelchair 8. Provide adequate lighting, including night light 9. Assess need for additional bedding, food/fluids, pain med's prior to sleep/routinely 10. Provide gripper slippers or personal non-skid footwear 11. Teach patient and patient u.s. representative to maintain environment for safety and engage in all aspects of fall prevention program 12. Remind patient to call for help before getting out of bed 13. Initiate bed/chair/exit alarms supportive devices as appropriate, (chair wedge, no-skid floor mat, raised edge mattress, hip protectors) 14. Locate patient bed assignment for optimal visualization 15. Evaluate and identify Safe Patient Handling Equipment needs 16. Provide supervision when out of bed or chair 17. Utilize gait belt as needed to assist with ambulation 18. Place adaptive equipment (cane, walker) within reach 19. Request patient u.s. representative bring adaptive equipment/mobility aids from home or obtain and provide as needed 20. Consult pharmacy regarding effects of med's affecting mobility, cognition, and alternatives 21. Obtain physician order for PT if risk factors associated with mobility are present 22. Obtain physician order for OT as appropriate 23. Utilize diversional activities 24. Educate patient and patient u.s. representative how to maintain a safe environment during visitation times (notify nurse prior to leaving bedside) 25. Consider appropriateness of medical or non-medical records specialist 26. Set up voiding schedule as appropriate (every 2 hours) Outcome: Progressing Note: Evaluation of progress towards goal: free from falls, cont to use nonskid footwear with ambulation. Pt instructed to call out when appropriate to aid with ambulation [facility] 04-09-2024 Consult note Formatting of th is note is different from the original. Gynecology Oncology Consultation Date of Admission: 04/08/2024 1:04 PM Chief Complaint : Chief Complaint Patient presents with Flu Symptoms Abdominal Pain History of Present Illness : April Nicholson is a 28 y.o. female POD#11 from RA BSO and lysis of adhesion c/b by muscularis serosal injury to the rectum who presents to [facility] ED due to abdominal pain that began 3-4 days after her surgery. She reports that in addition to her abdominal pain, she has been having nausea and fever/chills. Her temperatures have been ranging between 103-105 F. Patient has also noticed increase in erythema surrounding incision sites around her umbilicus and left surgical sites (image in patient chart). She reports that she is having a constant 10 out of 10 left upper and lower quadrant pain and that she had purulent, green discharge from the umbilical incision site yesterday. Patient notes that she has been using tylenol, motrin, and roxicodone since discharge, but her pain has not been controlled well. She states that she saw Dr. Blas on 04/01 and finished her 7 day course of clindamycin. She went to [place] ED yesterday and was given 1 dose of Bactrim. She was discharged from the ED with tylenol and motrin. Patient denies vaginal bleeding and discharge. She denies urinary symptoms, diarrhea, and constipation. She denies SOB and headache. She states that her last seizure episode was on 03/28 post OP. Patient has received 1 morphine injection 4 mg and 1 Zofran injection 4 mg upon arrival at the ED. Patient reports that she continues to have 10 out of 10 pain. This morning patient is still having pain. She reports some chills overnight. Patient isn't on any estrogen replacement. Cancer History: 10/01/2021: vaginal partial hysterectomy d/t abdominal and vaginal pain and cystectomy d/t hemorrhagic cysts 07/21/2022: laparoscopic exploration for lysis of adhesion 01/20/2023: diagnostic laparoscopy with extensive lysis of omental adhesion 02/10/2024: CTAP 4.7 cm thin-walled cystic lesion. Possible hemorrhagic cyst of right ovary 03/28/24: RA lysis of adhesions and BSO and RA laparoscopic repair of colon enterotomy Past Medical History : Past Medical History: Diagnosis Date Anxiety Asthma BV (bacterial vaginosis) Depression Migraine 15 days out of the month-receives an infusion every 3 months MRSA (methicillin resistant Staphylococcus aureus) In a buttocks wound in 8th grade Ovarian cyst, bilateral 03/25/2024 Prolonged emergence from general anesthesia Seizure ([facility]) Last one 03-11-2024 Past Surgical History: Past Surgical History: Procedure Laterality Date APPENDECTOMY SECTION CHOLECYSTECTOMY [place] [id number] LYSIS OF ADHESIONS N/A 03/28/2024 Performed by Mundo Martinez MD at [place] [address] LYSIS OF ADHESIONS N/A 03/28/2024 Performed by Jesse Sultana MD at [place] [address] SALPINGO OOPHORECTOMY/FROZEN SECTION Bilateral 03/28/2024 Performed by Mundo Martinez MD at [facility] DILATION AND CURETTAGE OF UTERUS PARTIAL HYSTERECTOMY 10/01/2021 TUBAL LIGATION Allergies: Allergies Allergen Reactions Bee Venom Protein (Honey Bee) Anaphylaxis Adhesive Rash Dihydroergotamine GI Disturbance and Hives Other Reaction(s): Intolerance Chest tightness, numbness and tingling in bilateral extremities, increased anxiety Adhesive Tape-Silicones Carbamazepine Other (See Comments) anxiety Ciprofloxacin Hives Clindamycin Hives Dexamethasone Hives Dextromethorphan Hives Keflex [Cephalexin] Hives Levetiracetam Hives and Itching Metoclopramide Hives and Other (See Comments) Propranolol Hcl Hives and Other (See Comments) Migrianes Pyrilamine-Dextromethorphan Hives Vortioxetine Hives Zithromax [Azithromycin] Hives Buspirone Hives Compazine [Prochlorperazine] Anxiety Reglan [Metoclopramide Hcl] Itching and Anxiety No rash Current Medications: Current Facility-Administered Medications: acetaminophen (TYLENOL EXTRA STRENGTH) tablet 1,000 mg, 1,000 mg, oral, Q6H PRN, Katina Block DO diazePAM (VALIUM) tablet 5 mg, 5 mg, oral, BID, Katina Block DO, 5 mg at 04/08/24 2218 HYDROmorphone (DILAUDID) injection 1 mg, 1 mg, intravenous, Q4H PRN, Katina Block DO, 1 mg at 04/09/24 0013 ibuprofen (MOTRIN) tablet 800 mg, 800 mg, oral, Q6H PRN, Katina Block DO iohexoL (OMNIPAQUE) 300 mg iodine/mL 30 mL, 30 mL, oral, Once in imaging, Rohan Velazquez MD lamoTRIgine (LaMICtal) tablet 200 mg, 200 mg, oral, BID, Katina Block DO, 200 mg at 04/08/24 2218 lidocaine PF (XYLOCAINE) 10 mg/mL (1 %) injection 100 mg, 10 mL, infiltration, Once, George Pisano MD lidocaine PF (XYLOCAINE) 10 mg/mL (1 %) injection 100 mg, 10 mL, infiltration, Once, George Pisano MD lithium carbonate tablet 600 mg, 600 mg, oral, Nightly, Katina Block DO, 600 mg at 04/08/24 2218 ondansetron ODT (ZOFRAN ODT) disintegrating tablet 4 mg, 4 mg, oral, Q8H PRN, Katina Block DO oxyCODONE (ROXICODONE) immediate release tablet 5 mg, 5 mg, oral, Q4H PRN, Katina Block DO, 5 mg at 04/09/24 0704 sodium chloride 0.9 % flush 10 mL, 10 mL, intravenous, PRN, Yordy Melton DO, 10 mL at 04/08/24 1525 traZODone (DESYREL) tablet 300 mg, 300 mg, oral, Nightly, Katina Block DO, 300 mg at 04/09/24 0117 Social History: Social History Socioeconomic History Marital status: Significant Other Spouse name: Not on file Number of children: Not on file Years of education: Not on file Highest education level: Not on file Occupational History Not on file Tobacco Use Smoking status: Never Smokeless tobacco: Never Vaping Use Vaping status: Never Used Substance and Sexual Activity Alcohol use: Not Currently Comment: social Drug use: Not Currently Sexual activity: Not Currently Partners: Male control/protection: Surgical Other Topics Concern Not on file Social History Narrative Not on file Social Drivers of Health Financial Resource Strain: Low Risk (04/08/2024) Overall Financial Resource Strain (CARDIA) Difficulty of Paying Living Expenses: Not hard at all Food Insecurity: No Food Insecurity (04/08/2024) Hunger Screening Food Insecurity - Worry: Never True Food Insecurity - Inability: Never True Transportation Needs: No Transportation Needs (04/08/2024) PRAPARE - Transportation Lack of Transportation (Medical): No Lack of Transportation (Non-Medical): No Physical Activity: Insufficiently Active (01/23/2024) Received from [facility] Exercise Vital Sign Days of Exercise per Week: 7 days Minutes of Exercise per Session: 10 min Stress: Stress Concern Present (01/23/2024) Received from [facility] [place] [facility]ational [facility] - Occupational Stress Questionnaire Feeling of Stress : Rather much Social Connections: Socially Integrated (01/23/2024) Received from [facility] Social Connection and Isolation Panel [NHANES] Frequency of Communication with Friends and Family: More than three times a week Frequency of Social Gatherings with Friends and Family: Twice a week Attends [employer] Services: More than 4 times per year Active Member of Clubs or Organizations: Yes Attends Club or Organization Meetings: More than 4 times per year Marital Status: Living with partner Interpersonal Safety: Not At Risk (04/08/2024) Humiliation, Afraid, Rape, and Kick questionnaire Fear of Current or Ex-Partner: No Emotionally Abused: No Physically Abused: No Sexually Abused: No Housing Instability: Low Risk (04/08/2024) Housing Instability Housing Instability: No Family History: Family History Problem Relation Age of Onset Anesthesia problems Mother Prolonged emergence Cystic fibrosis Mother Anesthesia problems Father prolonged emergence Cystic fibrosis Father Ovarian cancer Maternal Aunt Physical Exam: Vital Signs: Temp: [37.2 C (99 F)-37.5 C (99.5 F)] 37.2 C (99 F) Pulse: [78-115] 78 Resp: [14-20] 18 BP: (107-123)/(64-76) 112/64 SpO2: [95 %-99 %] 99 % O2 Device: Nasal cannula O2 Flow Rate (L/min): [2 L/min] 2 L/min General Appearance: Moderate distress Head: Normocephalic, without obvious abnormality, atraumatic Lung: not in respiratory distress Abdomen: left upper and lower quadrant tenderness with light palpation,guarding. Erythema noted at umbilical and left surgical site, wound packed Extremities: no edema, redness or tenderness in the calves or thighs Skin: erythema at umbilicus and left surgical site. Erythema size is approximately 15 cm x 6 cm Neurologic: Alert and oriented x3 Laboratory data: I have reviewed the following labs: Recent Results (from the past 72 hours) CBC auto differential Collection Time: 04/08/24 1:43 PM Result Value Ref Range White Blood Cells 19.6 (H) 4.0 - 11.0 X10E9/L RBC count 4.46 3.80 - 5.20 X10E12/L Hemoglobin 12.8 11.7 - 15.5 g/dL Hematocrit 37.6 35 - 47 % MCV 84 80 - 100 fL MCH 28.7 27 - 34 pg MCHC 34.1 32 - 36 g/dL RDW 13.4 11.5 - 15.0 % Platelets 290 150 - 450 X10E9/L MPV 8.5 7 - 12 fL % neutrophils 88.2 % % lymphocytes 6.7 % % monocytes 3.5 % % eosinophils 1.1 % % Basophils 0.5 % Neutrophils Absolute (A) 17.2 (H) 1.5 - 6.6 X10E9/L Lymphocytes Absolute 1.3 1.0 - 3.5 X10E9/L Monocytes Absolute 0.7 0 - 0.9 X10E9/L Eosinophils Absolute 0.2 0.0 - 0.4 X10E9/L Basophils Absolute 0.1 0.0 - 0.2 X10E9/L Blood culture Collection Time: 04/08/24 1:43 PM Specimen: Blood Result Value Ref Range Culture NO GROWTH <24 HRS SARS/FLU A+B/RSV by NAAT/Molecular (M4RT Collection Tube) Collection Time: 04/08/24 2:03 PM Result Value Ref Range FLU A PCR Negative Negative^Negative FLU B PCR Negative Negative^Negative RSV by PCR Negative Negative^Negative SARS CoV 2 BY PCR Not Detected Not Detected^Not Detected Blood culture Collection Time: 04/08/24 2:11 PM Specimen: Blood RIGHT~AC Result Value Ref Range Culture NO GROWTH <24 HRS Troponin I, High Sensitivity Collection Time: 04/08/24 2:11 PM Result Value Ref Range Troponin I, High Sensitivity 2 <16 ng/L POCT Nursing Urine Macroscopic UA Collection Time: 04/08/24 2:59 PM Result Value Ref Range Specific gravity SELMA 1.020 1.003 - 1.035 Leukocyte esterase SELMA Negative Negative^Negative Nitrite SELMA Negative Negative^Negative Ph 7.5 5.0 - 8.5 Protein SELMA Trace (A) Negative^Negative mg/dL Urine glucose SELMA Negative Negative^Negative mg/dL Ketones SELMA Negative Negative^Negative mg/dL Urobilinogen SELMA 0.2 <1.1 eu/dL Bilirubin SELMA Negative Negative^Negative Hemoglobin SELMA Trace (A) Negative^Negative Troponin I, High Sensitivity 1 Hour Collection Time: 04/08/24 3:23 PM Result Value Ref Range 1 Hour Trop I, High Sensitivity 2 <16 ng/L Basic Metabolic Panel Collection Time: 04/08/24 3:23 PM Result Value Ref Range Sodium 137 134 - 146 mmol/L Potassium, Bld 4.0 3.5 - 5.0 mmol/L Chloride 101 98 - 109 mmol/L CO2 26 22 - 32 mmol/L Anion gap 10 5 - 15 mmol/L BUN 10 5 - 23 mg/dL Creatinine 0.61 0.40 - 1.00 mg/dL Glucose 94 65 - 99 mg/dL Calcium 9.4 8.5 - 10.5 mg/dL eGFR (CKD-EPI)non-race dependent >90 >59 ml/min/1.73sq.m Lactate w/ Reflex Collection Time: 04/08/24 3:23 PM Result Value Ref Range Lactate w/ Reflex 0.8 0.4 - 2.0 mmol/L Liver panel Collection Time: 04/08/24 3:23 PM Result Value Ref Range Alkaline phosphatase 88 39 - 130 U/L AST 26 0 - 41 U/L ALT 59 (H) 0 - 31 U/L Total Bilirubin 0.7 0.3 - 1.2 mg/dL Bilirubin, direct 0.0 0.0 - 0.4 mg/dL Albumin 3.9 3.2 - 5.3 g/dL Total Protein 7.3 6.0 - 8.0 g/dL Magnesium Collection Time: 04/08/24 3:23 PM Result Value Ref Range Magnesium 1.8 1.8 - 2.6 mg/dL Thyroid profile includes TSH FT4 Collection Time: 04/08/24 3:23 PM Result Value Ref Range TSH 0.54 0.49 - 4.67 uIU/mL T4, free 0.62 0.61 - 1.60 ng/dL C-reactive protein Collection Time: 04/08/24 3:23 PM Result Value Ref Range CRP 15.4 (H) 0.000 - 0.744 mg/dL Protime & INR Collection Time: 04/08/24 3:57 PM Result Value Ref Range Protime 14.7 (H) 9.8 - 13.2 sec Inr 1.3 (H) 0.8 - 1.1 APTT Collection Time: 04/08/24 3:57 PM Result Value Ref Range aPTT 35 26 - 37 sec Wound culture superficial includes gram stain Collection Time: 04/08/24 8:25 PM Specimen: Wound Swab ABDOMEN~INCISION Result Value Ref Range Gram Stain Result >25 WHITE BLOOD CELLS/LPF Gram Stain Result 0 SQUAMOUS EPITHELIAL CELLS/LPF Gram Stain Result FEW GRAM POSITIVE COCCI Culture PENDING Lab Results Component Value Date HGBA1C 5.0 01/11/2024 No results found for: PREALBUMIN Lab Results Component Value Date CA125 7 03/18/2024 No components found for: HE4 Lab Results Component Value Date CEA 0.9 03/18/2024 No components found for: CA19-9 Imaging Studies: CXR (04/08): no acute processes noted. Assessment/Plan: April Nicholson is a 28 y.o. female POD #12 from RA BSO and lysis of adhesion c/b by muscularis serosal injury to the rectum presenting for abdominal pain, possible peritonitis. Possible Peritonitis Afebrile, tachycardic, normotensive Lactate 0.8 WBC 19.6 Fu am labs-pending sepsis workup - blood and urine culture pending Lactate: 0.8 CRP 15.4 UA: Trace protein / Trace hgb Obtain CTAP oral and IV contrast CTAP 04/08: Soft tissue attenuation of the anterior abdominal wall without distinct fluid collection. This may represent developing cellulitis or seroma status postop. Cannot exclude abscess formation within this process, and cannot exclude necrotizing fasciitis in this setting and findings best assessed in combination with other clinical data. Bilateral lower lung airspace disease with differential diagnosis including atelectasis, or pneumonia. CXR (04/08): lungs are clear. No acute processes seen. Start broad spectrum abx Zosyn and Vancomycin s/p 1 morphine injection 4 mg at ED Non-epileptiform seizure Continue home meds: lamotrigine 200 mg BID and diazepam 5 mg BID Mixed bipolar I disorder Continue home med: lamotrigine 200 mg BID Migraine Continue Zomig 5 mg nasal solution 5.POD#1 bedside I&D: 20cc of purulent and sanguinous fluid Iodoform packing strips Stephen Kenney MS4 If questions or concerns, please contact via [facility] pager at [phone]. Resident Attestation I have seen and evaluated the patient, and have also reviewed the documentation above. I have repeated and performed the chong portions of the physical exam and concur with the student's findings. I agree with the plan as noted above with any changes made as necessary. George Pisano MD [employer] Resident PGY-1 04/09/24 7:52 AM Cosigned by Milad Hernandez MD at 04/09/2024 8:56 AM EST Associated attestation - Milad Hernandez MD - 04/09/2024 8:56 AM EST Attending Attestation: I saw the patient. I participated and was physically present during the critical/chong portions of the service. I was directly involved in the management and treatment plan of the patient. I reviewed the resident's note. Additional Notes/Findings: Continue antibiotics, cellulitis is improving, improve pain control. Will initiate transdermal estrogen for vasomotor symptoms. Images from the original note were not included. Surgery B CONSULTATION NOTE Chief Complaint: abdominal pain History of Present Illness: April Nicholson is a 28 y.o. female who is s/p RA BSO and lysis of adhesion c/b by muscularis serosal injury to the rectum on 03/28/24 who presented to the ED due to worsening surgical site pain and fevers. She began having worsening abdominal pain about a week ago which has continued to worsen. The pain is worse around her umbilical and left sided surgical incisions with expanding redness as well. States that she had greenish discharge from her umbilical incision yesterday. Also endorses nausea, fevers of 105F and chills. Review of Systems Constitutional: Positive for chills and fever. Skin: Positive for rash. Gastrointestinal: Positive for abdominal pain, nausea and vomiting. All other systems reviewed and are negative. Past Medical History: Diagnosis Date Anxiety Asthma BV (bacterial vaginosis) Depression Migraine 15 days out of the month-receives an infusion every 3 months MRSA (methicillin resistant Staphylococcus aureus) In a buttocks wound in 8th grade Ovarian cyst, bilateral 03/25/2024 Prolonged emergence from general anesthesia Seizure ([facility]) Last one 03-11-2024 Past Surgical History: Procedure Laterality Date APPENDECTOMY SECTION CHOLECYSTECTOMY [facility] [place] LYSIS OF ADHESIONS N/A 03/28/2024 Performed by Mudno Martinez MD at [facility] LYSIS OF ADHESIONS N/A 03/28/2024 Performed by Jesse Sultana MD at [facility] SALPINGO OOPHORECTOMY/FROZEN SECTION Bilateral 03/28/2024 Performed by Mundo Martinez MD at [facility] DILATION AND CURETTAGE OF UTERUS PARTIAL HYSTERECTOMY 10/01/2021 TUBAL LIGATION Allergies Allergen Reactions Bee Venom Protein (Honey Bee) Anaphylaxis Adhesive Rash Dihydroergotamine GI Disturbance and Hives Other Reaction(s): Intolerance Chest tightness, numbness and tingling in bilateral extremities, increased anxiety Adhesive Tape-Silicones Carbamazepine Other (See Comments) anxiety Ciprofloxacin Hives Clindamycin Hives Dexamethasone Hives Dextromethorphan Hives Keflex [Cephalexin] Hives Levetiracetam Hives and Itching Metoclopramide Hives and Other (See Comments) Propranolol Hcl Hives and Other (See Comments) Migrianes Pyrilamine-Dextromethorphan Hives Vortioxetine Hives Zithromax [Azithromycin] Hives Buspirone Hives Compazine [Prochlorperazine] Anxiety Reglan [Metoclopramide Hcl] Itching and Anxiety No rash Current Facility-Administered Medications: diazePAM (VALIUM) tablet 5 mg, 5 mg, oral, BID, George Pisano MD iohexoL (OMNIPAQUE) 300 mg iodine/mL 30 mL, 30 mL, oral, Once in imaging, Rohan Velazquez MD lidocaine PF (XYLOCAINE) 10 mg/mL (1 %) injection 100 mg, 10 mL, infiltration, Once, George Pisano MD lidocaine PF (XYLOCAINE) 10 mg/mL (1 %) injection 100 mg, 10 mL, infiltration, Once, George Pisano MD metroNIDAZOLE (FLAGYL) IVPB 500 mg/100 mL in iso-osmotic sodium chloride (5 mg/mL premix), 500 mg, intravenous, Once, Rohan Velazquez MD, Last Rate: 100 mL/hr at 04/08/24 1646, 500 mg at 04/08/24 1646 piperacillin-tazobactam (ZOSYN) 4.5 g in sodium chloride 0.9 % 50 mL IVPB-MBP, 4.5 g, intravenous, Once, Rohan Velazquez MD sodium chloride 0.9 % flush 10 mL, 10 mL, intravenous, PRN, Yordy Melton DO, 10 mL at 04/08/24 1525 vancomycin (VANCOCIN) IVPB 2000 mg/500 mL in 0.9% sodium chloride (premix), 20 mg/kg (Order-Specific), intravenous, Once, Rohan Velazquez MD Current Outpatient Medications: acetaminophen (TYLENOL EXTRA STRENGTH) 500 mg tablet, Take 2 tablets (1,000 mg total) by mouth every 6 (six) hours as needed for pain., Disp: 30 tablet, Rfl: 2 albuterol (PROVENTIL,VENTOLIN) 2.5 mg /3 mL (0.083 %) nebulizer solution, Inhale 3 mL (2.5 mg total) by nebulization 4 (four) times a day as needed for wheezing., Disp: 360 mL, Rfl: 10 albuterol (VENTOLIN HFA) 90 mcg/actuation inhaler, INHALE TWO PUFFS BY MOUTH EVERY 4 HOURS NEEDED, Disp: 18 g, Rfl: 1 baclofen (LIORESAL) 10 mg tablet, Take 1 tablet (10 mg total) by mouth 3 (three) times a day., Disp: , Rfl: cetirizine (ZyrTEC) 10 mg tablet, Take 1 tablet (10 mg total) by mouth in the morning., Disp: 30 tablet, Rfl: 0 chlorzoxazone (PARAFON FORTE) 500 mg tablet, Take 1 tablet (500 mg total) by mouth 4 (four) times a day as needed., Disp: , Rfl: diazePAM (VALIUM) 10 mg tablet, Take 0.5 tablets (5 mg total) by mouth in the morning and at bedtime., Disp: , Rfl: EPINEPHrine (EPIPEN) 0.3 mg/0.3 mL auto-injector, 0.3 mL (0.3 mg total) by other route as needed (exposure to allergen)., Disp: 2 each, Rfl: 1 phbuebvtxoj-trktcfamh-jqtiwvvm (TRELEGY ELLIPTA) 200-62.5-25 mcg blister with device, Inhale 1 puff in the morning., Disp: 60 each, Rfl: 11 ibuprofen (MOTRIN) 800 mg tablet, Take 1 tablet (800 mg total) by mouth 3 (three) times a day., Disp: 21 tablet, Rfl: 0 ketoconazole (NIZORAL) 2 % shampoo, APPLY TO AFFECTED AREA(S) LATHER AND LEAVE IN PLACE FOR 5 MINUTES AND THEN RINSE OFF WITH WATER. DO THIS 2 TIMES A WEEK FOR 4 WEEKS, Disp: 120 mL, Rfl: 0 ketorolac (TORADOL) 10 mg tablet, Take 1 tablet (10 mg total) by mouth every 6 (six) hours as needed for pain., Disp: , Rfl: lamoTRIgine (LaMICtal) 200 mg tablet, Take 1 tablet (200 mg total) by mouth in the morning and 1 tablet (200 mg total) before bedtime., Disp: , Rfl: lithium carbonate 300 mg tablet, Take 2 tablets (600 mg total) by mouth nightly., Disp: , Rfl: magnesium oxide 400 mg magnesium capsule, , Disp: , Rfl: montelukast (SINGULAIR) 10 mg tablet, Take 1 tablet (10 mg total) by mouth in the morning., Disp: 30 tablet, Rfl: 0 nystatin (MYCOSTATIN) powder, APPLY TO THE AFFECTED AREA(S) topically TWICE DAILY, Disp: , Rfl: omeprazole (PriLOSEC) 20 mg capsule, Take 1 capsule (20 mg total) by mouth in the morning. (Patient not taking: Reported on 03/25/2024), Disp: 30 capsule, Rfl: 1 omeprazole (PriLOSEC) 40 mg capsule, Take 1 capsule (40 mg total) by mouth in the morning. (Patient not taking: Reported on 03/25/2024), Disp: 30 capsule, Rfl: 11 ondansetron ODT (ZOFRAN ODT) 4 mg disintegrating tablet, Dissolve 1 tablet (4 mg total) on tongue every 8 (eight) hours as needed for nausea for up to 20 doses., Disp: 10 tablet, Rfl: 0 ondansetron ODT (ZOFRAN ODT) 4 mg disintegrating tablet, Dissolve 1 tablet (4 mg total) on tongue every 8 (eight) hours as needed for nausea or vomiting., Disp: 20 tablet, Rfl: 0 oxyCODONE (ROXICODONE) 5 mg immediate release tablet, Take 1 tablet (5 mg total) by mouth every 4 (four) hours as needed for pain for up to 7 days Indications: pain. Max Daily Amount: 30 mg, Disp: 42 tablet, Rfl: 0 phentermine (ADIPEX-P) 37.5 mg tablet, Take 1 tablet (37.5 mg total) by mouth every morning before breakfast., Disp: , Rfl: promethazine (PHENERGAN) 25 mg suppository, Insert 1 suppository (25 mg total) into the rectum every 6 (six) hours as needed., Disp: , Rfl: promethazine (PHENERGAN) 25 mg tablet, Take 1 tablet (25 mg total) by mouth every 6 (six) hours as needed for nausea or vomiting., Disp: 15 tablet, Rfl: 0 scopolamine (TRANSDERM-SCOP) 1 mg/3 days, Place 1 patch on the skin every third day for 10 doses., Disp: 10 patch, Rfl: 0 sennosides-docusate sodium (SENNA WITH DOCUSATE SODIUM) 8.6-50 mg, Take 1 tablet by mouth in the morning and at bedtime., Disp: 30 tablet, Rfl: 1 traZODone (DESYREL) 300 MG tablet, Take 1 tablet (300 mg total) by mouth nightly., Disp: , Rfl: ZOLMitriptan (ZOMIG) 5 mg nasal solution, Administer 1 spray into each nostril as needed for migraine., Disp: , Rfl: Social History Socioeconomic History Marital status: Significant Other Spouse name: Not on file Number of children: Not on file Years of education: Not on file Highest education level: Not on file Occupational History Not on file Tobacco Use Smoking status: Never Smokeless tobacco: Never Vaping Use Vaping status: Never Used Substance and Sexual Activity Alcohol use: Not Currently Drug use: Not Currently Sexual activity: Not Currently Partners: Male control/protection: Surgical Other Topics Concern Not on file Social History Narrative Not on file Social Drivers of Health Financial Resource Strain: Low Risk (01/23/2024) Received from [facility] Overall Financial Resource Strain (CARDIA) Difficulty of Paying Living Expenses: Not very hard Food Insecurity: No Food Insecurity (02/09/2024) Hunger Screening Food Insecurity - Worry: Never True Food Insecurity - Inability: Never True Transportation Needs: Unknown (01/23/2024) Received from [facility] PRAPARE - Transportation Lack of Transportation (Medical): Patient declined Lack of Transportation (Non-Medical): No Physical Activity: Insufficiently Active (01/23/2024) Received from [facility] Exercise Vital Sign Days of Exercise per Week: 7 days Minutes of Exercise per Session: 10 min Stress: Stress Concern Present (01/23/2024) Received from [facility] [employer] [facility] [employer] - Occupational Stress Questionnaire Feeling of Stress : Rather much Social Connections: Socially Integrated (01/23/2024) Received from [facility] Social Connection and Isolation Panel [NHANES] Frequency of Communication with Friends and Family: More than three times a week Frequency of Social Gatherings with Friends and Family: Twice a week Attends [employer] Services: More than 4 times per year Active Member of Clubs or Organizations: Yes Attends Club or Organization Meetings: More than 4 times per year Marital Status: Living with partner Interpersonal Safety: Not on file Housing Instability: Low Risk (01/23/2024) Received from [facility] Housing Stability Vital Sign Unable to Pay for Housing in the Last Year: No Number of Times Moved in the Last Year: 0 Homeless in the Last Year: No Family History Problem Relation Age of Onset Anesthesia problems Mother Prolonged emergence Cystic fibrosis Mother Anesthesia problems Father prolonged emergence Cystic fibrosis Father Ovarian cancer Maternal Aunt Physical Exam Vitals and nursing note reviewed. Constitutional: General: She is in acute distress. Appearance: Normal appearance. HENT: Head: Normocephalic and atraumatic. Eyes: Extraocular Movements: Extraocular movements intact. Conjunctiva/sclera: Conjunctivae normal. Cardiovascular: Rate and Rhythm: Regular rhythm. Tachycardia present. Pulmonary: Effort: Pulmonary effort is normal. Abdominal: General: Abdomen is flat. Palpations: Abdomen is soft. Tenderness: There is abdominal tenderness (Around surgical incision sites). Comments: Umbilical and left port sites tense with surrounding erythema, ex Musculoskeletal: General: Normal range of motion. Skin: General: Skin is warm and dry. Neurological: General: No focal deficit present. Mental Status: She is alert and oriented to person, place, and time. Psychiatric: Mood and Affect: Mood normal. Behavior: Behavior normal. Vital Signs: Blood pressure 107/74, pulse 104, temperature 37.5 C (99.5 F), temperature source Oral, resp. rate 17, SpO2 99%, not currently . Respiratory Source: O2 Device: Nasal cannula Admission Weight: Labs: Lab Results Component Value Date WBC 19.6 (H) 04/08/2024 HGB 12.8 04/08/2024 HCT 37.6 04/08/2024 MCV 84 04/08/2024 PLT 290 04/08/2024 Lab Results Component Value Date GLU 94 04/08/2024 CALCIUM 9.4 04/08/2024 K 4.0 04/08/2024 CO2 26 04/08/2024 CL 101 04/08/2024 BUN 10 04/08/2024 CREATININE 0.61 04/08/2024 No results found for: AMYLASE Lab Results Component Value Date LIPASE 10 (L) 02/09/2024 Lab Results Component Value Date ALT 59 (H) 04/08/2024 AST 26 04/08/2024 ALKPHOS 51 03/18/2024 Lab Results Component Value Date INR 1.3 (H) 04/08/2024 INR 1.1 03/03/2020 PROTIME 14.7 (H) 04/08/2024 PROTIME 12.6 03/03/2020 Imaging: CT abdomen and pelvis with contrast CT ABDOMEN AND PELVIS W CONT HISTORY: Abdominal pain, oophorectomy 03/28/2024 and lysis of adhesions COMPARISON: 02/10/2024 and earlier TECHNIQUE: CT images of abdomen and pelvis obtained following administration of contrast. Automated exposure control was utilized. All CT scans at this facility use dose modulation, iterative reconstruction, and/or weight based dosing when appropriate to reduce radiation dose to as low as reasonably achievable. FINDINGS: This examination is markedly compromised by body habitus ABDOMINAL/PELVIC WALL: Soft tissue attenuation in the epigastric and umbilical area (series 602 image 101). No distinct fluid collection. LOWER THORAX: Bilateral lower airspace disease with left worse than right. ESOPHAGUS/STOMACH: The esophagus is nondilated. LIVER: Normal in size and configuration. No suspicious mass. Focal fatty infiltration near the falciform which is unchanged compared to 12/20/2021. BILE DUCTS: No intrahepatic or extrahepatic bile duct dilation. GALLBLADDER: The gallbladder surgically absent. PANCREAS: No abnormal attenuation. No main pancreatic duct dilation. SPLEEN: No splenomegaly. ADRENAL GLANDS: No nodules. KIDNEYS/URETERS: No hydroureteronephrosis. The kidneys enhance symmetrically. No suspicious renal mass. BLADDER: Underdistended. REPRODUCTIVE ORGANS: Status post partial hysterectomy and bilateral salpingo-oophorectomy. BOWEL: No disproportionate dilation of the small or large bowel. The appendix is surgically absent. Colonic diverticulosis. PERITONEUM/RETROPERITONEUM: Focal inflammation along the inferior course of the ureters within the pelvis. LYMPH NODES: No abdominal or pelvic lymphadenopathy. VESSELS: No abdominal aortic aneurysm. BONES: No suspicious osseous lesions. IMPRESSION: * Soft tissue attenuation of the anterior abdominal wall without distinct fluid collection. This may represent developing cellulitis or seroma status postop. Cannot exclude abscess formation within this process, and cannot exclude necrotizing fasciitis in this setting and findings best assessed in combination with other clinical data. * Bilateral lower lung airspace disease with differential diagnosis including atelectasis, or pneumonia. Findings best assessed in combination with other clinical data.. * * Indeterminate focal fatty stranding within the pelvis which may represent some peritoneal fluid axial image 89 series 302 lateral to the rectum on both sides. This may represent some postoperative fluid but I cannot exclude some early abscess formation and certainly cannot exclude bowel setting. Close clinical and follow-up CT abdomen pelvis using oral contrast might be considered if indicated clinically. THIS REPORT CONTAINS A SIGNIFICANT RESULT AND/OR RECOMMENDATION, WHICH REQUIRES THE ATTENTION OF THE LICENSED CAREGIVER RESPONSIBLE FOR THIS PATIENT. THEREFORE, I SPECIFICALLY DESIGNATED THIS REPORT TO BE TELEPHONED BY THE RADIOLOGY DEPARTMENT. * Approved by Kevin Lezama DO on 04/08/2024 3:35 PM IKyle MD have personally reviewed the image(s) and agree with and/or edited the report Finalized by Kyle Solorio MD on 04/08/2024 4:09 PM X-ray chest 1 view XR CHEST 1 VW History: Short of breath. One view study. Comparison: 01/23/2024 Impression: * Lungs are now clear. No focal airspace disease or infiltrate is appreciated. No acute process is seen. Finalized by Renetta Andrea MD on 04/08/2024 2:12 PM Assessment: April Nicholson is a 28 y.o.female s/p RA BSO and lysis of adhesion c/b by muscularis serosal injury to the rectum on 03/28/24 who presents with abdominal wall cellulitis and possible developing surgical site abscess. Plan: Plan for bedside I&D today IV abx Pain and nausea control PRN Rest of care per primary Kinsey Toussaint MD General Surgery Resident, PGY-1 General Surgery B 6a - 6p Pager: [phone] 6p - 6a Pager: [phone] Cosigned by Benjamin Francis MD at 04/09/2024 9:48 AM EST Associated attestation - Benjamin Francis MD - 04/09/2024 9:48 AM EST Attending attestation: I reviewed the resident's note and discussed the case with the resident. Additional findings/notes: Local wound care. Will sign-off. Benjamin Francis MD, [facility] General Surgery and Minimally Invasive Surgery [address] [place] [address], [address] [place] [address] Office: documented in this encounter [facility] 04-09-2024 Plan of care note Problem: Pain Goal: Patient goal is pain score less than 4, able to rest, and participant in treatment plan as appropriate Description: INTERVENTIONS: 1. Encourage patient or legal u.s. representative to report early pain and ask for pain medicine when needed 2. Assess pain using appropriate pain scale and include the scale used when documenting 3. Administer analgesics based on type and severity of pain and evaluate response within appropriate time frame 4. Implement non-pharmacological measures as appropriate and evaluate response 5. Consider cultural and social influences on pain and pain management 6. Notify LIP if interventions ineffective or patient reports new pain 7. Monitor vital signs including pulse ox, end-tidal CO2 based on pain intervention 8. Reassess pain per policy 9. Teach patient or legal u.s. representative interventions for comforting Note: Evaluation of progress towards goal: Pt receiving oral roxicodone q4H, IV dilaudid for breakthrough pain. Problem: Safety Goal: Patient will be injury free during hospitalization Description: INTERVENTIONS: 1. Assess patient's risk for falls and implement fall prevention plan of care per policy 2. Provide and maintain a safe environment 3. Proper use of double Identifiers 4. Medication administration using the 5 rights 5. Hand hygiene 6. Specimens are labeled at the bedside 7. Instruct patient/ patient u.s. representative about use of safety devices 8. Include patient/ patient u.s. representative in decisions related to safety Note: Evaluation of progress towards goal: Pt ID band in place, pt placed in private room, hand hygiene and standard precautions utilized. Pt safety maintained. Problem: Infection Goal: Absence of infection during hospitalization Description: INTERVENTIONS 1. Assess and monitor for signs and symptoms of infection. 2. Monitor lab/diagnostic results. 3. Monitor all insertion sites i.e., indwelling lines, tubes and drains. 4. Monitor endotracheal (as able) and nasal secretions for changes in amount and color. 5. Administer medications as ordered. 6. Instruct and encourage patient and family to use good hand hygiene technique. 7. Identify and instruct patient/patient u.s. representative in use of appropriate isolation precautions for identified infection/symptoms. 8. Provide and discuss with patient/patient u.s. representative on educational MDRO sheet. 9. Encourage and monitor nutritional status daily and consult admitted attorneys if indicated. 10. Implement neutropenic guidelines as needed. Note: Evaluation of progress towards goal: Wound culture pending. Iv zosyn, vanco, and flagyl administered 04/08. Problem: Knowledge Deficit Goal: Patient/patient u.s. representative demonstrates understanding of disease process, treatment plan, medications, and discharge instructions Description: INTERVENTIONS 1. Complete learning assessment and assess knowledge base 2. Provide teaching at level of understanding 3. Provide teaching via preferred learning method(s) Note: Evaluation of progress towards goal: pt verbalizes understanding of disease process and treatment plan. RN will continue to monitor. Problem: Discharge Planning Goal: Discharge to post-acute care, other facility, or home with appropriate resources Description: Patient's goal is: INTERVENTIONS 1. Conduct assessment to determine patient/family and health care team treatment goals, and need for post-acute services based on payer coverage, community resources, and patient preferences, and barriers to discharge 2. Coordinate with Social work, Care Navigation, and Utilization Review to arrange appropriate level of services according to patient's needs based on patient preference and payer coverage in collaboration with the physician and health care team 3. Address psychosocial, clinical, and financial barriers to discharge as identified in assessment in conjunction with the patient/family and health care team 4. Consult appropriate ancillary services (i.e.. PT/OT/ST, etc) as needed 5. Communicate with and update the patient/family, physician, and health care team regarding progress on the discharge plan 6. Identify discharge learning needs (meds, wound care, etc). 7. Arrange for needed discharge transportation as appropriate Note: Evaluation of progress towards goal: DC planning started upon admission. RN will continue to monitor. Problem: Anxiety Goal: Anxiety is at manageable level Description: Patient's goal is: INTERVENTIONS 1. Assess and monitor patient's anxiety level 2. Monitor for signs and symptoms of anxiety both physical and emotional (heart palpitations, chest pain, shortness of breath, headaches, nausea, feeling jumpy, restlessness, irritable, apprehensive) 3. Reorient/orient patient to unit/surroundings 4. Explain treatment plan 5. Explain tests/procedures prior to initiation 6. Encourage participation in care 7. Encourage verbalization of concerns/fears 8. Assess coping mechanisms 9. Assist in developing anxiety-reducing skills 10. Administer complimentary therapies 11. Manage patient's environment 12. Limit or eliminate stimulants such as caffeine and nicotine 13. Collaborate with ancillary departments 14. Include patient/patient u.s. representative in decisions related to anxiety Note: Evaluation of progress towards goal: Pt tearful and anxious upon initial assessment. 1x ativan IV administered. Home medications restarted. Problem: Inadequate Coping Goal: Demonstrates and verbalizes ability to cope effectively Description: Patient's goal is: INTERVENTIONS 1. Patient is able to verbalize feelings related to emotional state 2. Encourage verbalization of feelings, perceptions, fears, stressors, loss of loved ones 3. Encourage verbalization of problems out of their control 4. Encourage participation in care and self management 5. Inform patient of all treatment/care prior to providing care 6. Collaborate with pastoral/spiritual care, social work program coordinator, mental health counselor as needed. 7. Instruct patient on diversional activities such as physical activity, distraction, and deep breathing exercises to assist with coping 8. Involve patient's u.s. representative in care Note: Evaluation of progress towards goal: Emotional support provided by RN and pts SO. [facility] 04-08-2024 Procedure note PROCEDURE NOTE INCISION AND DRAINAGE PATIENT NAME: April Nicholson DATE: 04/08/24 SURGEON: Dr. Sultana PREOPERATIVE DIAGNOSIS: Abdominal wall abscess LOCATION: Abdominal wall, deep to umbilical port incision SIZE: 2 cm POSTOPERATIVE DIAGNOSIS: same PROCEDURE PERFORMED: Incision and debridement of abdominal wall abscess ANESTHESIA: Local with 1% lidocaine with epinephrine ESTIMATED BLOOD LOSS: minimal COMPLICATIONS: None immediately appreciated. OPERATIVE NOTE PREPARED BY: Kinsey Toussaint MD DISCUSSION: April Nicholson is a 28 y.o. female. The history and physical examination were reviewed and confirmed. The diagnoses, proposed procedure, risks, possible complications, benefits and alternatives were discussed with the patient or family. She was given the opportunity to ask questions, and once answered, verbal informed consent was obtained. The patient was then prepared for the procedure. PROCEDURE: A timeout was initiated and the procedure and patient were confirmed by those present. The area was prepped and draped in sterile fashion. 10 cc of local anesthetic was used to anesthestized the area. A #11 blade was use to make a 2 cm incision. An additional 20cc of purulent and sanguinous fluid drained. Small finger inserted into wound cavity which appeared to track down to the fascia, loculations broken up. Culture swabs were obtained. The wound was irrigated and packed. Sterile dressing was applied. No immediate complication was evident. Kinsey Toussaint MD General Surgery Resident, PGY-1 Cosigned by Jesse Sultana MD at 04/10/2024 12:47 PM EST Associated attestation - Jesse Sultana MD - 04/10/2024 12:47 PM EST Attending Attestation: I saw the patient. I participated and was physically present during the critical/chong portions of the service. I was directly involved in the management and treatment plan of the patient. I reviewed the resident's note. Additional Notes/Findings: [facility] 04-08-2024 Procedure note PROCEDURE NOTE INCISION AND DRAINAGE PATIENT NAME: April Nicholson DATE: 04/08/24 SURGEON: Dr. Sultana PREOPERATIVE DIAGNOSIS: Abdominal wall abscess LOCATION: Abdominal wall, deep to umbilical port incision SIZE: 2 cm POSTOPERATIVE DIAGNOSIS: same PROCEDURE PERFORMED: Incision and debridement of abdominal wall abscess ANESTHESIA: Local with 1% lidocaine with epinephrine ESTIMATED BLOOD LOSS: minimal COMPLICATIONS: None immediately appreciated. OPERATIVE NOTE PREPARED BY: Kinsey Toussaint MD DISCUSSION: April Nicholson is a 28 y.o. female. The history and physical examination were reviewed and confirmed. The diagnoses, proposed procedure, risks, possible complications, benefits and alternatives were discussed with the patient or family. She was given the opportunity to ask questions, and once answered, verbal informed consent was obtained. The patient was then prepared for the procedure. PROCEDURE: A timeout was initiated and the procedure and patient were confirmed by those present. The area was prepped and draped in sterile fashion. 10 cc of local anesthetic was used to anesthestized the area. A #11 blade was use to make a 2 cm incision. An additional 20cc of purulent and sanguinous fluid drained. Small finger inserted into wound cavity which appeared to track down to the fascia, loculations broken up. Culture swabs were obtained. The wound was irrigated and packed. Sterile dressing was applied. No immediate complication was evident. Kinsey Toussaint MD General Surgery Resident, PGY-1 Cosigned by Jesse Sultana MD at 04/10/2024 12:47 PM EST Associated attestation - Jesse Sultana MD - 04/10/2024 12:47 PM EST Attending Attestation: I saw the patient. I participated and was physically present during the critical/chong portions of the service. I was directly involved in the management and treatment plan of the patient. I reviewed the resident's note. Additional Notes/Findings: documented in this encounter [facility] 04-08-2024 Consult note Formatting of th is note is different from the original. Images from the original note were not included. Surgery B CONSULTATION NOTE Chief Complaint: abdominal pain History of Present Illness: April Nicholson is a 28 y.o. female who is s/p RA BSO and lysis of adhesion c/b by muscularis serosal injury to the rectum on 03/28/24 who presented to the ED due to worsening surgical site pain and fevers. She began having worsening abdominal pain about a week ago which has continued to worsen. The pain is worse around her umbilical and left sided surgical incisions with expanding redness as well. States that she had greenish discharge from her umbilical incision yesterday. Also endorses nausea, fevers of 105F and chills. Review of Systems Constitutional: Positive for chills and fever. Skin: Positive for rash. Gastrointestinal: Positive for abdominal pain, nausea and vomiting. All other systems reviewed and are negative. Past Medical History: Diagnosis Date Anxiety Asthma BV (bacterial vaginosis) Depression Migraine 15 days out of the month-receives an infusion every 3 months MRSA (methicillin resistant Staphylococcus aureus) In a buttocks wound in 8th grade Ovarian cyst, bilateral 03/25/2024 Prolonged emergence from general anesthesia Seizure (CMS-HCC) Last one 03-11-2024 Past Surgical History: Procedure Laterality Date APPENDECTOMY SECTION CHOLECYSTECTOMY [facility] DV5 LYSIS OF ADHESIONS N/A 03/28/2024 Performed by Mundo Martinez MD at [facility] LYSIS OF ADHESIONS N/A 03/28/2024 Performed by Jesse Sultana MD at [facility] SALPINGO OOPHORECTOMY/FROZEN SECTION Bilateral 03/28/2024 Performed by Mundo Martinez MD at [facility] DILATION AND CURETTAGE OF UTERUS PARTIAL HYSTERECTOMY 10/01/2021 TUBAL LIGATION Allergies Allergen Reactions Bee Venom Protein (Honey Bee) Anaphylaxis Adhesive Rash Dihydroergotamine GI Disturbance and Hives Other Reaction(s): Intolerance Chest tightness, numbness and tingling in bilateral extremities, increased anxiety Adhesive Tape-Silicones Carbamazepine Other (See Comments) anxiety Ciprofloxacin Hives Clindamycin Hives Dexamethasone Hives Dextromethorphan Hives Keflex [Cephalexin] Hives Levetiracetam Hives and Itching Metoclopramide Hives and Other (See Comments) Propranolol Hcl Hives and Other (See Comments) Migrianes Pyrilamine-Dextromethorphan Hives Vortioxetine Hives Zithromax [Azithromycin] Hives Buspirone Hives Compazine [Prochlorperazine] Anxiety Reglan [Metoclopramide Hcl] Itching and Anxiety No rash Current Facility-Administered Medications: diazePAM (VALIUM) tablet 5 mg, 5 mg, oral, BID, George Pisano MD iohexoL (OMNIPAQUE) 300 mg iodine/mL 30 mL, 30 mL, oral, Once in imaging, Rohan Velazquez MD lidocaine PF (XYLOCAINE) 10 mg/mL (1 %) injection 100 mg, 10 mL, infiltration, Once, George Pisano MD lidocaine PF (XYLOCAINE) 10 mg/mL (1 %) injection 100 mg, 10 mL, infiltration, Once, George Pisano MD metroNIDAZOLE (FLAGYL) IVPB 500 mg/100 mL in iso-osmotic sodium chloride (5 mg/mL premix), 500 mg, intravenous, Once, Rohan Velazquez MD, Last Rate: 100 mL/hr at 02/17/25 1646, 500 mg at 04/08/24 1646 piperacillin-tazobactam (ZOSYN) 4.5 g in sodium chloride 0.9 % 50 mL IVPB-MBP, 4.5 g, intravenous, Once, Rohan Velazquez MD sodium chloride 0.9 % flush 10 mL, 10 mL, intravenous, PRN, Yordy Melton, , 10 mL at 04/08/24 1525 vancomycin (VANCOCIN) IVPB 2000 mg/500 mL in 0.9% sodium chloride (premix), 20 mg/kg (Order-Specific), intravenous, Once, Rohan Velazquez MD Current Outpatient Medications: acetaminophen (TYLENOL EXTRA STRENGTH) 500 mg tablet, Take 2 tablets (1,000 mg total) by mouth every 6 (six) hours as needed for pain., Disp: 30 tablet, Rfl: 2 albuterol (PROVENTIL,VENTOLIN) 2.5 mg /3 mL (0.083 %) nebulizer solution, Inhale 3 mL (2.5 mg total) by nebulization 4 (four) times a day as needed for wheezing., Disp: 360 mL, Rfl: 10 albuterol (VENTOLIN HFA) 90 mcg/actuation inhaler, INHALE TWO PUFFS BY MOUTH EVERY 4 HOURS NEEDED, Disp: 18 g, Rfl: 1 baclofen (LIORESAL) 10 mg tablet, Take 1 tablet (10 mg total) by mouth 3 (three) times a day., Disp: , Rfl: cetirizine (ZyrTEC) 10 mg tablet, Take 1 tablet (10 mg total) by mouth in the morning., Disp: 30 tablet, Rfl: 0 chlorzoxazone (PARAFON FORTE) 500 mg tablet, Take 1 tablet (500 mg total) by mouth 4 (four) times a day as needed., Disp: , Rfl: diazePAM (VALIUM) 10 mg tablet, Take 0.5 tablets (5 mg total) by mouth in the morning and at bedtime., Disp: , Rfl: EPINEPHrine (EPIPEN) 0.3 mg/0.3 mL auto-injector, 0.3 mL (0.3 mg total) by other route as needed (exposure to allergen)., Disp: 2 each, Rfl: 1 mbmhvtwefdo-kzuiacblt-ixocizgo (TRELEGY ELLIPTA) 200-62.5-25 mcg blister with device, Inhale 1 puff in the morning., Disp: 60 each, Rfl: 11 ibuprofen (MOTRIN) 800 mg tablet, Take 1 tablet (800 mg total) by mouth 3 (three) times a day., Disp: 21 tablet, Rfl: 0 ketoconazole (NIZORAL) 2 % shampoo, APPLY TO AFFECTED AREA(S) LATHER AND LEAVE IN PLACE FOR 5 MINUTES AND THEN RINSE OFF WITH WATER. DO THIS 2 TIMES A WEEK FOR 4 WEEKS, Disp: 120 mL, Rfl: 0 ketorolac (TORADOL) 10 mg tablet, Take 1 tablet (10 mg total) by mouth every 6 (six) hours as needed for pain., Disp: , Rfl: lamoTRIgine (LaMICtal) 200 mg tablet, Take 1 tablet (200 mg total) by mouth in the morning and 1 tablet (200 mg total) before bedtime., Disp: , Rfl: lithium carbonate 300 mg tablet, Take 2 tablets (600 mg total) by mouth nightly., Disp: , Rfl: magnesium oxide 400 mg magnesium capsule, , Disp: , Rfl: montelukast (SINGULAIR) 10 mg tablet, Take 1 tablet (10 mg total) by mouth in the morning., Disp: 30 tablet, Rfl: 0 nystatin (MYCOSTATIN) powder, APPLY TO THE AFFECTED AREA(S) topically TWICE DAILY, Disp: , Rfl: omeprazole (PriLOSEC) 20 mg capsule, Take 1 capsule (20 mg total) by mouth in the morning. (Patient not taking: Reported on 03/25/2024), Disp: 30 capsule, Rfl: 1 omeprazole (PriLOSEC) 40 mg capsule, Take 1 capsule (40 mg total) by mouth in the morning. (Patient not taking: Reported on 03/25/2024), Disp: 30 capsule, Rfl: 11 ondansetron ODT (ZOFRAN ODT) 4 mg disintegrating tablet, Dissolve 1 tablet (4 mg total) on tongue every 8 (eight) hours as needed for nausea for up to 20 doses., Disp: 10 tablet, Rfl: 0 ondansetron ODT (ZOFRAN ODT) 4 mg disintegrating tablet, Dissolve 1 tablet (4 mg total) on tongue every 8 (eight) hours as needed for nausea or vomiting., Disp: 20 tablet, Rfl: 0 oxyCODONE (ROXICODONE) 5 mg immediate release tablet, Take 1 tablet (5 mg total) by mouth every 4 (four) hours as needed for pain for up to 7 days Indications: pain. Max Daily Amount: 30 mg, Disp: 42 tablet, Rfl: 0 phentermine (ADIPEX-P) 37.5 mg tablet, Take 1 tablet (37.5 mg total) by mouth every morning before breakfast., Disp: , Rfl: promethazine (PHENERGAN) 25 mg suppository, Insert 1 suppository (25 mg total) into the rectum every 6 (six) hours as needed., Disp: , Rfl: promethazine (PHENERGAN) 25 mg tablet, Take 1 tablet (25 mg total) by mouth every 6 (six) hours as needed for nausea or vomiting., Disp: 15 tablet, Rfl: 0 scopolamine (TRANSDERM-SCOP) 1 mg/3 days, Place 1 patch on the skin every third day for 10 doses., Disp: 10 patch, Rfl: 0 sennosides-docusate sodium (SENNA WITH DOCUSATE SODIUM) 8.6-50 mg, Take 1 tablet by mouth in the morning and at bedtime., Disp: 30 tablet, Rfl: 1 traZODone (DESYREL) 300 MG tablet, Take 1 tablet (300 mg total) by mouth nightly., Disp: , Rfl: ZOLMitriptan (ZOMIG) 5 mg nasal solution, Administer 1 spray into each nostril as needed for migraine., Disp: , Rfl: Social History Socioeconomic History Marital status: Significant Other Spouse name: Not on file Number of children: Not on file Years of education: Not on file Highest education level: Not on file Occupational History Not on file Tobacco Use Smoking status: Never Smokeless tobacco: Never Vaping Use Vaping status: Never Used Substance and Sexual Activity Alcohol use: Not Currently Drug use: Not Currently Sexual activity: Not Currently Partners: Male control/protection: Surgical Other Topics Concern Not on file Social History Narrative Not on file Social Drivers of Health Financial Resource Strain: Low Risk (01/23/2024) Received from [facility] Overall Financial Resource Strain (CARDIA) Difficulty of Paying Living Expenses: Not very hard Food Insecurity: No Food Insecurity (02/09/2024) Hunger Screening Food Insecurity - Worry: Never True Food Insecurity - Inability: Never True Transportation Needs: Unknown (01/23/2024) Received from [facility] PRAPARE - Transportation Lack of Transportation (Medical): Patient declined Lack of Transportation (Non-Medical): No Physical Activity: Insufficiently Active (01/23/2024) Received from [facility] Exercise Vital Sign Days of Exercise per Week: 7 days Minutes of Exercise per Session: 10 min Stress: Stress Concern Present (01/23/2024) Received from [facility] [employer] - Occupational Stress Questionnaire Feeling of Stress : Rather much Social Connections: Socially Integrated (01/23/2024) Received from [facility] Social Connection and Isolation Panel [NHANES] Frequency of Communication with Friends and Family: More than three times a week Frequency of Social Gatherings with Friends and Family: Twice a week Attends Amish Services: More than 4 times per year Active Member of Clubs or Organizations: Yes Attends Club or Organization Meetings: More than 4 times per year Marital Status: Living with partner Interpersonal Safety: Not on file Housing Instability: Low Risk (01/23/2024) Received from [facility] Housing Stability Vital Sign Unable to Pay for Housing in the Last Year: No Number of Times Moved in the Last Year: 0 Homeless in the Last Year: No Family History Problem Relation Age of Onset Anesthesia problems Mother Prolonged emergence Cystic fibrosis Mother Anesthesia problems Father prolonged emergence Cystic fibrosis Father Ovarian cancer Maternal Aunt Physical Exam Vitals and nursing note reviewed. Constitutional: General: She is in acute distress. Appearance: Normal appearance. HENT: Head: Normocephalic and atraumatic. Eyes: Extraocular Movements: Extraocular movements intact. Conjunctiva/sclera: Conjunctivae normal. Cardiovascular: Rate and Rhythm: Regular rhythm. Tachycardia present. Pulmonary: Effort: Pulmonary effort is normal. Abdominal: General: Abdomen is flat. Palpations: Abdomen is soft. Tenderness: There is abdominal tenderness (Around surgical incision sites). Comments: Umbilical and left port sites tense with surrounding erythema, ex Musculoskeletal: General: Normal range of motion. Skin: General: Skin is warm and dry. Neurological: General: No focal deficit present. Mental Status: She is alert and oriented to person, place, and time. Psychiatric: Mood and Affect: Mood normal. Behavior: Behavior normal. Vital Signs: Blood pressure 107/74, pulse 104, temperature 37.5 C (99.5 F), temperature source Oral, resp. rate 17, SpO2 99%, not currently . Respiratory Source: O2 Device: Nasal cannula Admission Weight: Labs: Lab Results Component Value Date WBC 19.6 (H) 04/08/2024 HGB 12.8 04/08/2024 HCT 37.6 04/08/2024 MCV 84 04/08/2024 PLT 290 04/08/2024 Lab Results Component Value Date GLU 94 04/08/2024 CALCIUM 9.4 04/08/2024 K 4.0 04/08/2024 CO2 26 04/08/2024 CL 101 04/08/2024 BUN 10 04/08/2024 CREATININE 0.61 04/08/2024 No results found for: AMYLASE Lab Results Component Value Date LIPASE 10 (L) 02/09/2024 Lab Results Component Value Date ALT 59 (H) 04/08/2024 AST 26 04/08/2024 ALKPHOS 51 03/18/2024 Lab Results Component Value Date INR 1.3 (H) 04/08/2024 INR 1.1 03/03/2020 PROTIME 14.7 (H) 04/08/2024 PROTIME 12.6 03/03/2020 Imaging: CT abdomen and pelvis with contrast CT ABDOMEN AND PELVIS W CONT HISTORY: Abdominal pain, oophorectomy 03/28/2024 and lysis of adhesions COMPARISON: 02/10/2024 and earlier TECHNIQUE: CT images of abdomen and pelvis obtained following administration of contrast. Automated exposure control was utilized. All CT scans at this facility use dose modulation, iterative reconstruction, and/or weight based dosing when appropriate to reduce radiation dose to as low as reasonably achievable. FINDINGS: This examination is markedly compromised by body habitus ABDOMINAL/PELVIC WALL: Soft tissue attenuation in the epigastric and umbilical area (series 602 image 101). No distinct fluid collection. LOWER THORAX: Bilateral lower airspace disease with left worse than right. ESOPHAGUS/STOMACH: The esophagus is nondilated. LIVER: Normal in size and configuration. No suspicious mass. Focal fatty infiltration near the falciform which is unchanged compared to 12/20/2021. BILE DUCTS: No intrahepatic or extrahepatic bile duct dilation. GALLBLADDER: The gallbladder surgically absent. PANCREAS: No abnormal attenuation. No main pancreatic duct dilation. SPLEEN: No splenomegaly. ADRENAL GLANDS: No nodules. KIDNEYS/URETERS: No hydroureteronephrosis. The kidneys enhance symmetrically. No suspicious renal mass. BLADDER: Underdistended. REPRODUCTIVE ORGANS: Status post partial hysterectomy and bilateral salpingo-oophorectomy. BOWEL: No disproportionate dilation of the small or large bowel. The appendix is surgically absent. Colonic diverticulosis. PERITONEUM/RETROPERITONEUM: Focal inflammation along the inferior course of the ureters within the pelvis. LYMPH NODES: No abdominal or pelvic lymphadenopathy. VESSELS: No abdominal aortic aneurysm. BONES: No suspicious osseous lesions. IMPRESSION: * Soft tissue attenuation of the anterior abdominal wall without distinct fluid collection. This may represent developing cellulitis or seroma status postop. Cannot exclude abscess formation within this process, and cannot exclude necrotizing fasciitis in this setting and findings best assessed in combination with other clinical data. * Bilateral lower lung airspace disease with differential diagnosis including atelectasis, or pneumonia. Findings best assessed in combination with other clinical data.. * * Indeterminate focal fatty stranding within the pelvis which may represent some peritoneal fluid axial image 89 series 302 lateral to the rectum on both sides. This may represent some postoperative fluid but I cannot exclude some early abscess formation and certainly cannot exclude bowel setting. Close clinical and follow-up CT abdomen pelvis using oral contrast might be considered if indicated clinically. THIS REPORT CONTAINS A SIGNIFICANT RESULT AND/OR RECOMMENDATION, WHICH REQUIRES THE ATTENTION OF THE LICENSED CAREGIVER RESPONSIBLE FOR THIS PATIENT. THEREFORE, I SPECIFICALLY DESIGNATED THIS REPORT TO BE TELEPHONED BY THE RADIOLOGY DEPARTMENT. * Approved by Kevin Lezama DO on 04/08/2024 3:35 PM I, Kyle Solorio MD have personally reviewed the image(s) and agree with and/or edited the report Finalized by Kyle Solorio MD on 04/08/2024 4:09 PM X-ray chest 1 view XR CHEST 1 VW History: Short of breath. One view study. Comparison: 01/23/2024 Impression: * Lungs are now clear. No focal airspace disease or infiltrate is appreciated. No acute process is seen. Finalized by Renetta Andrea MD on 04/08/2024 2:12 PM Assessment: April Nicholson is a 28 y.o.female s/p RA BSO and lysis of adhesion c/b by muscularis serosal injury to the rectum on 03/28/24 who presents with abdominal wall cellulitis and possible developing surgical site abscess. Plan: Plan for bedside I&D today IV abx Pain and nausea control PRN Rest of care per primary Kinsey Toussaint MD General Surgery Resident, PGY-1 General Surgery B 6a - 6p Pager: [phone] 6p - 6a Pager: [phone] Cosigned by Benjamin Francis MD at 04/09/2024 9:48 AM EST Associated attestation - Benjamin Francis MD - 04/09/2024 9:48 AM EST Attending attestation: I reviewed the resident's note and discussed the case with the resident. Additional findings/notes: Local wound care. Will sign-off. Benjamin Francis MD, [facility] General Surgery and Minimally Invasive Surgery [address] [place] [address], [address] [place] [address] Office: [facility] Work Phone: 04-08-2024 Physician Emergency department Note Images from the original note were not included. [facility] - EMERGENCY DEPARTMENT Pt Name: April Nicholson Birthdate: 1995 Chief Complaint: Chief Complaint Patient presents with Flu Symptoms Abdominal Pain History of Present Illness: 28-year-old female who presents to the emergency department for evaluation of abdominal pain, fevers at home. Patient had a hysterectomy in 2020 as well as a recent oophorectomy on 03/28/2024 with Gyne Oncology as well as lysis of adhesions with Dr. Sultana via robotic surgery. Patient states that she was recently evaluated at [facility] yesterday and was given Keflex and recommended Tylenol and Motrin and discharged from the hospital. Patient states that she was also on clindamycin post-op in which he finished a course of 7 days. Patient states that she has taken a day of her Keflex. She comes in today and states that she spiked a fever of 105 at home in his having severe abdominal pain along the previous incision sites specifically the umbilical as well as the left lower quadrant. She also states that she had purulent, serosanguineous fluid discharge from the umbilical incision site yesterday. She denies any vaginal bleeding, vaginal discharge. She denies any urinary symptoms or diarrhea. She denies any chest pain, shortness for breath, headache, vision changes. Patient was tearful on exam, A&O x4, no respiratory distress, moderate distress from pain. Past Medical History: Past Medical History: Diagnosis Date Anxiety Asthma BV (bacterial vaginosis) Depression Migraine 15 days out of the month-receives an infusion every 3 months MRSA (methicillin resistant Staphylococcus aureus) In a buttocks wound in 8th grade Ovarian cyst, bilateral 03/25/2024 Prolonged emergence from general anesthesia Seizure ([facility]) Last one 03-11-2024 Past Surgical History: Past Surgical History: Procedure Laterality Date APPENDECTOMY SECTION CHOLECYSTECTOMY [facility] LYSIS OF ADHESIONS N/A 03/28/2024 Performed by Mundo Martinez MD at [facility] DV5 LYSIS OF ADHESIONS N/A 03/28/2024 Performed by Jesse Sultana MD at [facility] [place] OOPHORECTOMY/FROZEN SECTION Bilateral 03/28/2024 Performed by Mundo Martinez MD at [facility] DILATION AND CURETTAGE OF UTERUS PARTIAL HYSTERECTOMY 10/01/2021 TUBAL LIGATION Family History: Family History Problem Relation Age of Onset Anesthesia problems Mother Prolonged emergence Cystic fibrosis Mother Anesthesia problems Father prolonged emergence Cystic fibrosis Father Ovarian cancer Maternal Aunt Social History: Social History Socioeconomic History Marital status: Significant Other Tobacco Use Smoking status: Never Smokeless tobacco: Never Vaping Use Vaping status: Never Used Substance and Sexual Activity Alcohol use: Not Currently Comment: social Drug use: Not Currently Sexual activity: Not Currently Partners: Male control/protection: Surgical Social Drivers of Health Financial Resource Strain: Low Risk (04/08/2024) Overall Financial Resource Strain (CARDIA) Difficulty of Paying Living Expenses: Not hard at all Food Insecurity: No Food Insecurity (04/08/2024) Hunger Screening Food Insecurity - Worry: Never True Food Insecurity - Inability: Never True Transportation Needs: No Transportation Needs (04/08/2024) PRAPARE - Transportation Lack of Transportation (Medical): No Lack of Transportation (Non-Medical): No Physical Activity: Insufficiently Active (01/23/2024) Received from [facility] Exercise Vital Sign Days of Exercise per Week: 7 days Minutes of Exercise per Session: 10 min Stress: Stress Concern Present (01/23/2024) Received from [facility] [employer] - Occupational Stress Questionnaire Feeling of Stress : Rather much Social Connections: Socially Integrated (01/23/2024) Received from [facility] Social Connection and Isolation Panel [NHANES] Frequency of Communication with Friends and Family: More than three times a week Frequency of Social Gatherings with Friends and Family: Twice a week Attends [employer] Services: More than 4 times per year Active Member of Clubs or Organizations: Yes Attends Club or Organization Meetings: More than 4 times per year Marital Status: Living with partner Interpersonal Safety: Not At Risk (04/08/2024) Humiliation, Afraid, Rape, and Kick questionnaire Fear of Current or Ex-Partner: No Emotionally Abused: No Physically Abused: No Sexually Abused: No Housing Instability: Low Risk (04/08/2024) Housing Instability Housing Instability: No Review of Systems: Review of Systems All other systems are reviewed and are negative except as noted. Physical Exam: ED Triage Vitals [04/08/24 1119] Temp Heart Rate Resp BP SpO2 37.5 C (99.5 F) (!) 115 18 108/72 95 % Temp Source Heart Rate Source Patient Position BP Location FiO2 (%) Tympanic Pulse Ox Sitting Right arm -- Vitals: 04/08/24 1122 04/08/24 1603 04/08/24 1648 04/08/24 1700 BP: 119/76 123/71 107/74 Temp: 37.5 C (99.5 F) 37.5 C (99.5 F) TempSrc: Tympanic Oral Pulse: 99 106 104 Resp: 14 20 17 SpO2: 96% 95% 99% MAP (mmHg): 85 99 Physical Exam Vitals and nursing note reviewed. Exam conducted with a tire technician present. Constitutional: General: She is in acute distress. Appearance: She is well-developed. She is obese. She is not ill-appearing, toxic-appearing or diaphoretic. HENT: Head: Normocephalic and atraumatic. Right Ear: External ear normal. Left Ear: External ear normal. Nose: Nose normal. Mouth/Throat: Mouth: Mucous membranes are moist. Pharynx: Oropharynx is clear. Eyes: Extraocular Movements: Extraocular movements intact. Conjunctiva/sclera: Conjunctivae normal. Cardiovascular: Rate and Rhythm: Regular rhythm. Tachycardia present. Pulses: Normal pulses. Heart sounds: Normal heart sounds. Pulmonary: Effort: Pulmonary effort is normal. Breath sounds: Normal breath sounds. Chest: Chest wall: No deformity. Abdominal: General: There is no distension. Palpations: Abdomen is soft. Tenderness: There is abdominal tenderness in the periumbilical area and left lower quadrant. There is guarding. There is no rebound. Negative signs include Kraus's sign and McBurney's sign. Comments: 2 cm surgical incisions over the right lower quadrant, periumbilical, left lower quadrant. Erythema and induration with dried purulent discharge around the periumbilical incision site as well as the left lower quadrant. Significant tenderness on gentle palpation of the periumbilical as well as the left lower quadrant incision sites Musculoskeletal: General: Normal range of motion. Cervical back: Normal range of motion and neck supple. No rigidity. Right lower leg: No edema. Left lower leg: No edema. Skin: General: Skin is warm and dry. Capillary Refill: Capillary refill takes less than 2 seconds. Findings: No bruising or rash. Neurological: General: No focal deficit present. Mental Status: She is alert and oriented to person, place, and time. Mental status is at baseline. GCS: GCS eye subscore is 4. GCS verbal subscore is 5. GCS motor subscore is 6. Psychiatric: Mood and Affect: Mood normal. Behavior: Behavior normal. Procedure: Procedures Re-evaluation: Re-Evaluation Medical Decision Making This is a 28 y.o. female presenting for Flu Symptoms and Abdominal Pain. On arrival patient's oral temperature is 37.5 C (99.5 F). Her blood pressure is 107/74 and her pulse is 104. Her respiration is 17 and oxygen saturation is 99%. History provided by independent historians which include: patient. On physical exam the patient appears to be in mild distress. Differential Diagnosis includes but is not limited to: aortic dissection, appendicitis, bowel obstruction, perforated bowel, cholecystitis, cholelithiasis, choledocolithiasis, colitis, constipation, diverticulitis, diverticulosis, DKA, gastroenteritis, GERD, gastritis, PUD, GI bleed, kidney stone, pyelonephritis, pancreatitis, UTI, volvulus, abscess, cellulitis, postoperative complication/pain See ED course for pertinent lab findings, imaging and EKG. Orders Placed This Encounter Blood culture Blood culture SARS/FLU A+B/RSV by NAAT/Molecular (M4RT Collection Tube) Urine culture Wound culture superficial includes gram stain X-ray chest [address] abdomen and pelvis with contrast CBC auto differential Troponin I, High Sensitivity Troponin I, High Sensitivity 1 Hour Basic Metabolic Panel Lactate w/ Reflex Liver panel Magnesium Thyroid profile includes TSH FT4 Protime & INR APTT C-reactive protein CBC auto differential Basic Metabolic Panel Adult diet Regular Texture POCT Nursing Urine Macroscopic UA POCT Nursing Urine Macroscopic UA ECG 12 lead Admit to Adult inpatient Medications iohexoL (OMNIPAQUE) 300 mg iodine/mL 30 mL (has no administration in time range) sodium chloride 0.9 % flush 10 mL (10 mL intravenous Given 04/08/24 1525) lidocaine PF (XYLOCAINE) 10 mg/mL (1 %) injection 100 mg (100 mg infiltration Not Given 04/08/241649) lidocaine PF (XYLOCAINE) 10 mg/mL (1 %) injection 100 mg (100 mg infiltration Not Given 04/08/241649) ibuprofen (MOTRIN) tablet 800 mg (has no administration in time range) acetaminophen (TYLENOL EXTRA STRENGTH) tablet 1,000 mg (has no administration in time range) oxyCODONE (ROXICODONE) immediate release tablet 5 mg (5 mg oral Given 04/09/24 0704) HYDROmorphone (DILAUDID) injection 1 mg (1 mg intravenous Given 04/09/24 0013) diazePAM (VALIUM) tablet 5 mg (5 mg oral Given 04/08/242217) lamoTRIgine (LaMICtal) tablet 200 mg (200 mg oral Given 04/08/242217) lithium carbonate tablet 600 mg (600 mg oral Given 04/08/242217) ondansetron ODT (ZOFRAN ODT) disintegrating tablet 4 mg (has no administration in time range) traZODone (DESYREL) tablet 300 mg (300 mg oral Given 04/09/24 0117) sodium chloride 0.9 % bolus (0 mL intravenous Stop Bag 04/08/24 1446) ondansetron (PF) (ZOFRAN) injection 4 mg (4 mg intravenous Given 04/08/24 1416) morphine injection 4 mg (4 mg intravenous Given 04/08/24 1415) cefTRIAXone (ROCEPHIN) 1,000 mg in sodium chloride 0.9 % 50 mL IVPB-MBP (0 mg intravenous Stop Bag 04/08/24 1633) metroNIDAZOLE (FLAGYL) IVPB 500 mg/100 mL in iso-osmotic sodium chloride (5 mg/mL premix) (0 mg intravenous Stop Bag 04/08/24 1746) diphenhydrAMINE (BENADRYL) injection 25 mg (25 mg intravenous Given 04/08/24 1558) sodium chloride 0.9 % radiology injection (80 mL intravenous Given 04/08/24 1525) iohexoL (OMNIPAQUE) 300 mg iodine/mL 100 mL (100 mL intravenous Given 04/08/24 1525) vancomycin (VANCOCIN) IVPB 2000 mg/500 mL in 0.9% sodium chloride (premix) (0 mg intravenous Stop Bag 04/08/24 2130) piperacillin-tazobactam (ZOSYN) 4.5 g in sodium chloride 0.9 % 50 mL IVPB-MBP (0 g intravenous Stop Bag 04/08/24 2259) HYDROmorphone (DILAUDID) injection 1 mg (1 mg intravenous Given 04/08/241639) lidocaine-EPINEPHrine (XYLOCAINE W/EPI) 1 %-1:575150 injection 30 mL (20 mL intradermal Given 04/08/242032) LORazepam (ATIVAN) injection 1 mg (1 mg intravenous Given 04/08/242010) HYDROmorphone (DILAUDID) injection 0.5 mg (0.5 mg intravenous Given 04/08/242019) Reevaluation: On reevaluation the patient is resting comfortably and in NAD. Vital signs remain stable. Results were discussed with patient. All questions answered to the patient's satisfaction. Disposition: Based on the diagnostic results and physical exam, pt requires admission to [facility] for IV antibiotics, pain control, general surgery evaluation with possible surgical intervention. Problems Addressed: Postoperative surgical complication involving genitourinary system associated with genitourinary procedure, unspecified complication: acute illness or injury Amount and/or Complexity of Data Reviewed Labs: ordered. Decision-making details documented in ED Course. Radiology: ordered. Decision-making details documented in ED Course. ECG/medicine tests: ordered. Decision-making details documented in ED Course. Risk OTC drugs. Prescription drug management. Parenteral controlled substances. Decision regarding hospitalization. ED Course: ED Course as of 04/08/241958Apr 08, 2024 1322 BP: 108/72 [JR] 1322 Heart Rate(!): 115 [JR] 1322 Resp: 18 [JR] 1322 SpO2: 95 % [JR] 1322 Temp: 37.5 C (99.5 F) [JR] 1322 Pain Score: 10 [JR] 1406 [facility] evaluating patient at bedside [JR] 1413 X-ray chest 1 view Impression: * Lungs are now clear. No focal airspace disease or infiltrate is appreciated. No acute process is seen. [JR] 1444 White Blood Cells(!): 19.6 [JR] 1445 Hemoglobin: 12.8 [JR] 1445 Hematocrit: 37.6 [JR] 1445 Platelets: 290 [JR] 1445 Neutrophils Absolute (A)(!): 17.2 [JR] 1457 Troponin I, High Sensitivity: 2 [JR] 1521 Leukocyte esterase SELMA: Negative [JR] 1521 Nitrite SELMA: Negative [JR] 1521 Protein SELMA(!): Trace [JR] 1521 Urine glucose SELMA: Negative [JR] 1521 Ketones SELMA: Negative [JR] 1521 Bilirubin SELMA: Negative [JR] 1521 Hemoglobin SELMA(!): Trace [JR] 1521 Flu A PCR: Negative [JR] 1521 Flu B PCR: Negative [JR] 1521 COVID-19: Not Detected [JR] 1521 ECG 12 lead Sinus tachycardia, heart rate 103, TX interval 134, QRS 75, QTC 427. No evidence of ST elevation, depression or T-wave inversion. [JR] 1612 CT abdomen and pelvis with contrast IMPRESSION: * Soft tissue attenuation of the anterior abdominal wall without distinct fluid collection. This may represent developing cellulitis or seroma status postop. Cannot exclude abscess formation within this process, and cannot exclude necrotizing fasciitis in this setting and findings best assessed in combination with other clinical data. * Bilateral lower lung airspace disease with differential diagnosis including atelectasis, or pneumonia. Findings best assessed in combination with other clinical data.. * * Indeterminate focal fatty stranding within the pelvis which may represent some peritoneal fluid axial image 89 series 302 lateral to the rectum on both sides. This may represent some postoperative fluid but I cannot exclude some early abscess formation and certainly cannot exclude bowel setting. Close clinical and follow-up CT abdomen pelvis using oral contrast might be considered if indicated clinically. [JR] 1612 1 Hour Trop I, High Sensitivity: 2 [JR] 1612 Rapid Lactate: 0.8 [JR] 1613 BP: 119/76 [JR] 1613 Heart Rate: 99 [JR] 1613 Resp: 14 [JR] 1613 SpO2: 96 % [JR] 1613 Temp: 37.5 C (99.5 F) [JR] 1619 Alkaline phosphatase: 88 [JR] 1619 AST: 26 [JR] 1619 ALT(!): 59 [JR] 1619 Bilirubin, direct: 0.0 [JR] 1619 Magnesium: 1.8 [JR] 1619 Sodium: 137 [JR] 1619 Potassium: 4.0 [JR] 1619 Anion gap: 10 [JR] 1619 BUN: 10 [JR] 1619 Creatinine: 0.61 [JR] 1619 eGFR (CKD-EPI)non-race dependent: >90 [JR] 1619 Discussed findings with gynecology oncology team, awaiting disposition. IV antibiotics ordered for coverage of necrotizing fasciitis [JR] 1631 Protime(!): 14.7 [JR] 1631 Inr(!): 1.3 [JR] 1631 aPTT: 35 [JR] 1631 TSH: 0.54 [JR] 1631 T4, free: 0.62 [JR] ED Course User Index [JR] Rohan Velazquez MD Clinical Impressions as of 04/08/241958 Postoperative surgical complication involving genitourinary system associated with genitourinary procedure, unspecified complication Shared Visit: 13:51 Lito GARCIA (scribe) scribed for and in the presence of Dr. Melton who performed the above service. The doctor personally saw and evaluated the patient. The doctor discussed the management with the JUAN A/Resident. The doctor reviewed the JUAN A/Resident note, approved the management plan for this patient and takes responsibility for the medical care of the patient. Additional Notes/Findings: April Nicholson is a 28 y.o. female presenting to the ED for chief complaint of ABD pain. Pt notes that she has a HX of Salpingectomy, Oophorectomy, Gastrointestinal infections, Hysterectomy. Pt states that her most recent surgery was a oophorectomy on 03/28/2024 with Gyne Oncology as well as lysis of adhesions with Dr. Sultana via robotic surgery. Pt notes hat she was recently evaluated at [facility] yesterday and was given Keflex and recommended Tylenol and Motrin and discharged from the hospital. Pt notes that today, she has been expericing ABD pain. Pt states that she took 800 mg of Ibuprofen at 10:00 AM. Pt is currently febrile. Exam findings as follows: Constitutional: Awake and alert, Acute distress HENT: Head normocephalic and atraumatic Eyes: conjunctiva unremarkable Cardiovascular: Heart rate regular, Tachycardic Pulmonary: Easy work of breathing, speaking full sentences Abdominal: Flat and non-distended, Cellulitis and erythema near surgical site, Generalized tenderness Skin: Warm and dry Musculoskeletal: Moving all extremities spontaneously . ED Disposition ED Disposition Admit Date/Time MonApr 08, 2024 4:29 PM Comment Diagnosis: Abdominal wall cellulitis [[id number]] Attending Provider: MILAD HERNANDEZ [[id number]] Estimated length of stay?: >2 midnights/In-patient only procedure/<96 hours Critical Access Certification: I certify that inpatient services are medically necessary for this patient for a duration of greater than two midnights. See H&P and MD Progress Notes for additional information about the patient's course of treatment. Bed request comments: GEN6 Acute ED Prescriptions None Scribe Attestation I, Dr. Melton personally performed the services described in the documentation, as scribed by Liot Cowan in my presence, and it is both accurate and complete. Resident Attestation: I, Dr. Melton personally performed a [id number] diagnostic evaluation on this patient. I have repeated the critical/cohng portions of the physical exam and concur with the resident s findings. I have reviewed all laboratory findings and imaging reports. I have reviewed the note authored by the resident and agree with the assessment and plan as written. Please note that portions of this note were completed with a voice recognition program. Efforts were made to edit the dictations but occasionally words are mis-transcribed. Rohan Velazquez MD Resident 04/08/24 1339 Lito Cowan 04/08/24 1355 Lito Cowan 04/08/24 1433 Rohan Velazquez MD Resident 04/08/242000 Yordy Melton DO 04/09/24 0734 [facility] Work Phone: 04-08-2024 Emergency department Note Images from the original note were not included. [facility] - EMERGENCY DEPARTMENT Pt Name: April Nicholson Birthdate: 1995 Chief Complaint: Chief Complaint Patient presents with Flu Symptoms Abdominal Pain History of Present Illness: 28-year-old female who presents to the emergency department for evaluation of abdominal pain, fevers at home. Patient had a hysterectomy in 2020 as well as a recent oophorectomy on 03/28/2024 with Gyne Oncology as well as lysis of adhesions with Dr. Sultana via robotic surgery. Patient states that she was recently evaluated at [facility] yesterday and was given Keflex and recommended Tylenol and Motrin and discharged from the hospital. Patient states that she was also on clindamycin post-op in which he finished a course of 7 days. Patient states that she has taken a day of her Keflex. She comes in today and states that she spiked a fever of 105 at home in his having severe abdominal pain along the previous incision sites specifically the umbilical as well as the left lower quadrant. She also states that she had purulent, serosanguineous fluid discharge from the umbilical incision site yesterday. She denies any vaginal bleeding, vaginal discharge. She denies any urinary symptoms or diarrhea. She denies any chest pain, shortness for breath, headache, vision changes. Patient was tearful on exam, A&O x4, no respiratory distress, moderate distress from pain. Past Medical History: Past Medical History: Diagnosis Date Anxiety Asthma BV (bacterial vaginosis) Depression Migraine 15 days out of the month-receives an infusion every 3 months MRSA (methicillin resistant Staphylococcus aureus) In a buttocks wound in 8th grade Ovarian cyst, bilateral 03/25/2024 Prolonged emergence from general anesthesia Seizure (CMS-HCC) Last one 03-11-2024 Past Surgical History: Past Surgical History: Procedure Laterality Date APPENDECTOMY SECTION CHOLECYSTECTOMY [facility] DV5 LYSIS OF ADHESIONS N/A 03/28/2024 Performed by Mundo Martinez MD at [facility] LYSIS OF ADHESIONS N/A 03/28/2024 Performed by Jesse Sultana MD at [facility] SALPINGO OOPHORECTOMY/FROZEN SECTION Bilateral 03/28/2024 Performed by Mundo Martinez MD at [facility] DILATION AND CURETTAGE OF UTERUS PARTIAL HYSTERECTOMY 10/01/2021 TUBAL LIGATION Family History: Family History Problem Relation Age of Onset Anesthesia problems Mother Prolonged emergence Cystic fibrosis Mother Anesthesia problems Father prolonged emergence Cystic fibrosis Father Ovarian cancer Maternal Aunt Social History: Social History Socioeconomic History Marital status: Significant Other Tobacco Use Smoking status: Never Smokeless tobacco: Never Vaping Use Vaping status: Never Used Substance and Sexual Activity Alcohol use: Not Currently Comment: social Drug use: Not Currently Sexual activity: Not Currently Partners: Male control/protection: Surgical Social Drivers of Health Financial Resource Strain: Low Risk (04/08/2024) Overall Financial Resource Strain (CARDIA) Difficulty of Paying Living Expenses: Not hard at all Food Insecurity: No Food Insecurity (04/08/2024) Hunger Screening Food Insecurity - Worry: Never True Food Insecurity - Inability: Never True Transportation Needs: No Transportation Needs (04/08/2024) PRAPARE - Transportation Lack of Transportation (Medical): No Lack of Transportation (Non-Medical): No Physical Activity: Insufficiently Active (01/23/2024) Received from [facility] Exercise Vital Sign Days of Exercise per Week: 7 days Minutes of Exercise per Session: 10 min Stress: Stress Concern Present (01/23/2024) Received from [facility] [place] of Occupational Health - Occupational Stress Questionnaire Feeling of Stress : Rather much Social Connections: Socially Integrated (01/23/2024) Received from [facility] Social Connection and Isolation Panel [NHANES] Frequency of Communication with Friends and Family: More than three times a week Frequency of Social Gatherings with Friends and Family: Twice a week Attends [employer] Services: More than 4 times per year Active Member of Clubs or Organizations: Yes Attends Club or Organization Meetings: More than 4 times per year Marital Status: Living with partner Interpersonal Safety: Not At Risk (04/08/2024) Humiliation, Afraid, Rape, and Kick questionnaire Fear of Current or Ex-Partner: No Emotionally Abused: No Physically Abused: No Sexually Abused: No Housing Instability: Low Risk (04/08/2024) Housing Instability Housing Instability: No Review of Systems: Review of Systems All other systems are reviewed and are negative except as noted. Physical Exam: ED Triage Vitals [04/08/24 1119] Temp Heart Rate Resp BP SpO2 37.5 C (99.5 F) (!) 115 18 108/72 95 % Temp Source Heart Rate Source Patient Position BP Location FiO2 (%) Tympanic Pulse Ox Sitting Right arm -- Vitals: 04/08/24 1122 04/08/24 1603 04/08/24 1648 04/08/24 1700 BP: 119/76 123/71 107/74 Temp: 37.5 C (99.5 F) 37.5 C (99.5 F) TempSrc: Tympanic Oral Pulse: 99 106 104 Resp: 14 20 17 SpO2: 96% 95% 99% MAP (mmHg): 85 99 Physical Exam Vitals and nursing note reviewed. Exam conducted with a tire technician present. Constitutional: General: She is in acute distress. Appearance: She is well-developed. She is obese. She is not ill-appearing, toxic-appearing or diaphoretic. HENT: Head: Normocephalic and atraumatic. Right Ear: External ear normal. Left Ear: External ear normal. Nose: Nose normal. Mouth/Throat: Mouth: Mucous membranes are moist. Pharynx: Oropharynx is clear. Eyes: Extraocular Movements: Extraocular movements intact. Conjunctiva/sclera: Conjunctivae normal. Cardiovascular: Rate and Rhythm: Regular rhythm. Tachycardia present. Pulses: Normal pulses. Heart sounds: Normal heart sounds. Pulmonary: Effort: Pulmonary effort is normal. Breath sounds: Normal breath sounds. Chest: Chest wall: No deformity. Abdominal: General: There is no distension. Palpations: Abdomen is soft. Tenderness: There is abdominal tenderness in the periumbilical area and left lower quadrant. There is guarding. There is no rebound. Negative signs include Kraus's sign and McBurney's sign. Comments: 2 cm surgical incisions over the right lower quadrant, periumbilical, left lower quadrant. Erythema and induration with dried purulent discharge around the periumbilical incision site as well as the left lower quadrant. Significant tenderness on gentle palpation of the periumbilical as well as the left lower quadrant incision sites Musculoskeletal: General: Normal range of motion. Cervical back: Normal range of motion and neck supple. No rigidity. Right lower leg: No edema. Left lower leg: No edema. Skin: General: Skin is warm and dry. Capillary Refill: Capillary refill takes less than 2 seconds. Findings: No bruising or rash. Neurological: General: No focal deficit present. Mental Status: She is alert and oriented to person, place, and time. Mental status is at baseline. GCS: GCS eye subscore is 4. GCS verbal subscore is 5. GCS motor subscore is 6. Psychiatric: Mood and Affect: Mood normal. Behavior: Behavior normal. Procedure: Procedures Re-evaluation: Re-Evaluation Medical Decision Making This is a 28 y.o. female presenting for Flu Symptoms and Abdominal Pain. On arrival patient's oral temperature is 37.5 C (99.5 F). Her blood pressure is 107/74 and her pulse is 104. Her respiration is 17 and oxygen saturation is 99%. History provided by independent historians which include: patient. On physical exam the patient appears to be in mild distress. Differential Diagnosis includes but is not limited to: aortic dissection, appendicitis, bowel obstruction, perforated bowel, cholecystitis, cholelithiasis, choledocolithiasis, colitis, constipation, diverticulitis, diverticulosis, DKA, gastroenteritis, GERD, gastritis, PUD, GI bleed, kidney stone, pyelonephritis, pancreatitis, UTI, volvulus, abscess, cellulitis, postoperative complication/pain See ED course for pertinent lab findings, imaging and EKG. Orders Placed This Encounter Blood culture Blood culture SARS/FLU A+B/RSV by NAAT/Molecular (M4RT Collection Tube) Urine culture Wound culture superficial includes gram stain X-ray chest [address] abdomen and pelvis with contrast CBC auto differential Troponin I, High Sensitivity Troponin I, High Sensitivity 1 Hour Basic Metabolic Panel Lactate w/ Reflex Liver panel Magnesium Thyroid profile includes TSH FT4 Protime & INR APTT C-reactive protein CBC auto differential Basic Metabolic Panel Adult diet Regular Texture POCT Nursing Urine Macroscopic UA POCT Nursing Urine Macroscopic UA ECG 12 lead Admit to Adult inpatient Medications iohexoL (OMNIPAQUE) 300 mg iodine/mL 30 mL (has no administration in time range) sodium chloride 0.9 % flush 10 mL (10 mL intravenous Given 04/08/24 1525) lidocaine PF (XYLOCAINE) 10 mg/mL (1 %) injection 100 mg (100 mg infiltration Not Given 04/08/24 1650) lidocaine PF (XYLOCAINE) 10 mg/mL (1 %) injection 100 mg (100 mg infiltration Not Given 04/08/24 1650) ibuprofen (MOTRIN) tablet 800 mg (has no administration in time range) acetaminophen (TYLENOL EXTRA STRENGTH) tablet 1,000 mg (has no administration in time range) oxyCODONE (ROXICODONE) immediate release tablet 5 mg (5 mg oral Given 04/09/24 0704) HYDROmorphone (DILAUDID) injection 1 mg (1 mg intravenous Given 04/09/24 0013) diazePAM (VALIUM) tablet 5 mg (5 mg oral Given 04/08/24 2218) lamoTRIgine (LaMICtal) tablet 200 mg (200 mg oral Given 04/08/24 2218) lithium carbonate tablet 600 mg (600 mg oral Given 04/08/24 2218) ondansetron ODT (ZOFRAN ODT) disintegrating tablet 4 mg (has no administration in time range) traZODone (DESYREL) tablet 300 mg (300 mg oral Given 04/09/24 0117) sodium chloride 0.9 % bolus (0 mL intravenous Stop Bag 04/08/24 1446) ondansetron (PF) (ZOFRAN) injection 4 mg (4 mg intravenous Given 04/08/24 1416) morphine injection 4 mg (4 mg intravenous Given 04/08/24 1415) cefTRIAXone (ROCEPHIN) 1,000 mg in sodium chloride 0.9 % 50 mL IVPB-MBP (0 mg intravenous Stop Bag 04/08/24 1633) metroNIDAZOLE (FLAGYL) IVPB 500 mg/100 mL in iso-osmotic sodium chloride (5 mg/mL premix) (0 mg intravenous Stop Bag 04/08/24 1746) diphenhydrAMINE (BENADRYL) injection 25 mg (25 mg intravenous Given 04/08/24 1558) sodium chloride 0.9 % radiology injection (80 mL intravenous Given 04/08/24 1525) iohexoL (OMNIPAQUE) 300 mg iodine/mL 100 mL (100 mL intravenous Given 04/08/24 1525) vancomycin (VANCOCIN) IVPB 2000 mg/500 mL in 0.9% sodium chloride (premix) (0 mg intravenous Stop Bag 04/08/24 2130) piperacillin-tazobactam (ZOSYN) 4.5 g in sodium chloride 0.9 % 50 mL IVPB-MBP (0 g intravenous Stop Bag 04/08/24 225) HYDROmorphone (DILAUDID) injection 1 mg (1 mg intravenous Given 04/08/24 1640) lidocaine-EPINEPHrine (XYLOCAINE W/EPI) 1 %-1:253278 injection 30 mL (20 mL intradermal Given 04/08/242032) LORazepam (ATIVAN) injection 1 mg (1 mg intravenous Given 04/08/242010) HYDROmorphone (DILAUDID) injection 0.5 mg (0.5 mg intravenous Given 04/08/242019) Reevaluation: On reevaluation the patient is resting comfortably and in NAD. Vital signs remain stable. Results were discussed with patient. All questions answered to the patient's satisfaction. Disposition: Based on the diagnostic results and physical exam, pt requires admission to [facility] for IV antibiotics, pain control, general surgery evaluation with possible surgical intervention. Problems Addressed: Postoperative surgical complication involving genitourinary system associated with genitourinary procedure, unspecified complication: acute illness or injury Amount and/or Complexity of Data Reviewed Labs: ordered. Decision-making details documented in ED Course. Radiology: ordered. Decision-making details documented in ED Course. ECG/medicine tests: ordered. Decision-making details documented in ED Course. Risk OTC drugs. Prescription drug management. Parenteral controlled substances. Decision regarding hospitalization. ED Course: ED Course as of 04/08/241958Apr 08, 2024 1322 BP: 108/72 [JR] 1322 Heart Rate(!): 115 [JR] 1322 Resp: 18 [JR] 1322 SpO2: 95 % [JR] 1322 Temp: 37.5 C (99.5 F) [JR] 1322 Pain Score: 10 [JR] 1406 [facility] evaluating patient at bedside [JR] 1413 X-ray chest 1 view Impression: * Lungs are now clear. No focal airspace disease or infiltrate is appreciated. No acute process is seen. [JR] 1444 White Blood Cells(!): 19.6 [JR] 1445 Hemoglobin: 12.8 [JR] 1445 Hematocrit: 37.6 [JR] 1445 Platelets: 290 [JR] 1445 Neutrophils Absolute (A)(!): 17.2 [JR] 1457 Troponin I, High Sensitivity: 2 [JR] 1521 Leukocyte esterase SELMA: Negative [JR] 1521 Nitrite SELMA: Negative [JR] 1521 Protein SELMA(!): Trace [JR] 1521 Urine glucose SELMA: Negative [JR] 1521 Ketones SELMA: Negative [JR] 1521 Bilirubin SELMA: Negative [JR] 1521 Hemoglobin SELMA(!): Trace [JR] 1521 Flu A PCR: Negative [JR] 1521 Flu B PCR: Negative [JR] 1521 COVID-19: Not Detected [JR] 1521 ECG 12 lead Sinus tachycardia, heart rate 103, TX interval 134, QRS 75, QTC 427. No evidence of ST elevation, depression or T-wave inversion. [JR] 1612 CT abdomen and pelvis with contrast IMPRESSION: * Soft tissue attenuation of the anterior abdominal wall without distinct fluid collection. This may represent developing cellulitis or seroma status postop. Cannot exclude abscess formation within this process, and cannot exclude necrotizing fasciitis in this setting and findings best assessed in combination with other clinical data. * Bilateral lower lung airspace disease with differential diagnosis including atelectasis, or pneumonia. Findings best assessed in combination with other clinical data.. * * Indeterminate focal fatty stranding within the pelvis which may represent some peritoneal fluid axial image 89 series 302 lateral to the rectum on both sides. This may represent some postoperative fluid but I cannot exclude some early abscess formation and certainly cannot exclude bowel setting. Close clinical and follow-up CT abdomen pelvis using oral contrast might be considered if indicated clinically. [JR] 1612 1 Hour Trop I, High Sensitivity: 2 [JR] 1612 Rapid Lactate: 0.8 [JR] 1613 BP: 119/76 [JR] 1613 Heart Rate: 99 [JR] 1613 Resp: 14 [JR] 1613 SpO2: 96 % [JR] 1613 Temp: 37.5 C (99.5 F) [JR] 1619 Alkaline phosphatase: 88 [JR] 1619 AST: 26 [JR] 1619 ALT(!): 59 [JR] 1619 Bilirubin, direct: 0.0 [JR] 1619 Magnesium: 1.8 [JR] 1619 Sodium: 137 [JR] 1619 Potassium: 4.0 [JR] 1619 Anion gap: 10 [JR] 1619 BUN: 10 [JR] 1619 Creatinine: 0.61 [JR] 1619 eGFR (CKD-EPI)non-race dependent: >90 [JR] 1619 Discussed findings with gynecology oncology team, awaiting disposition. IV antibiotics ordered for coverage of necrotizing fasciitis [JR] 1631 Protime(!): 14.7 [JR] 1631 Inr(!): 1.3 [JR] 1631 aPTT: 35 [JR] 1631 TSH: 0.54 [JR] 1631 T4, free: 0.62 [JR] ED Course User Index [JR] Rohan Velazquez MD Clinical Impressions as of 04/08/241958 Postoperative surgical complication involving genitourinary system associated with genitourinary procedure, unspecified complication Shared Visit: 13:51 Lito GARCIA (scribe) scribed for and in the presence of Dr. Melton who performed the above service. The doctor personally saw and evaluated the patient. The doctor discussed the management with the JUAN A/Resident. The doctor reviewed the JUAN A/Resident note, approved the management plan for this patient and takes responsibility for the medical care of the patient. Additional Notes/Findings: April Nicholson is a 28 y.o. female presenting to the ED for chief complaint of ABD pain. Pt notes that she has a HX of Salpingectomy, Oophorectomy, Gastrointestinal infections, Hysterectomy. Pt states that her most recent surgery was a oophorectomy on 03/28/2024 with Gyne Oncology as well as lysis of adhesions with Dr. Sultana via robotic surgery. Pt notes hat she was recently evaluated at [facility] yesterday and was given Keflex and recommended Tylenol and Motrin and discharged from the hospital. Pt notes that today, she has been expericing ABD pain. Pt states that she took 800 mg of Ibuprofen at 10:00 AM. Pt is currently febrile. Exam findings as follows: Constitutional: Awake and alert, Acute distress HENT: Head normocephalic and atraumatic Eyes: conjunctiva unremarkable Cardiovascular: Heart rate regular, Tachycardic Pulmonary: Easy work of breathing, speaking full sentences Abdominal: Flat and non-distended, Cellulitis and erythema near surgical site, Generalized tenderness Skin: Warm and dry Musculoskeletal: Moving all extremities spontaneously . ED Disposition ED Disposition Admit Date/Time MonApr 08, 2024 4:29 PM Comment Diagnosis: Abdominal wall cellulitis [[id number]] Attending Provider: MILAD HERNANDEZ [[id number]] Estimated length of stay?: >2 midnights/In-patient only procedure/<96 hours Critical Access Certification: I certify that inpatient services are medically necessary for this patient for a duration of greater than two midnights. See H&P and MD Progress Notes for additional information about the patient's course of treatment. Bed request comments: GEN6 Acute ED Prescriptions None Scribe Attestation I, Dr. Melton personally performed the services described in the documentation, as scribed by Lito Cowan in my presence, and it is both accurate and complete. Resident Attestation: I, Dr. Melton personally performed a [id number] diagnostic evaluation on this patient. I have repeated the critical/chong portions of the physical exam and concur with the resident s findings. I have reviewed all laboratory findings and imaging reports. I have reviewed the note authored by the resident and agree with the assessment and plan as written. Please note that portions of this note were completed with a voice recognition program. Efforts were made to edit the dictations but occasionally words are mis-transcribed. Rohan Velazquez MD Resident 04/08/24 1339 Lito Cowan 04/08/24 1355 Lito Cowan 04/08/24 1433 Rohan Velazquez MD Resident 04/08/242000 Yordy Melton DO 04/09/24 0734 Pt tearful in triage, lots of recent blood draws, requesting labs in back. documented in this encounter [facility] 04-08-2024 Emergency department Note Pt tearful in triage, lots of recent blood draws, requesting labs in back. [facility] 04-08-2024 Miscellaneous Notes Patient called reporting persistent fever of 105 F that is not reducing with medication. She has been to the ED in [place] multiple times and has been sent home every time. She also reports pain and green drainage from her surgical incision. Spoke to Svetlana Ye PA-C; she recommends that patient visit [facility] ED and and wants to inform patient that our team and residents will be able to round on her there. Patient is agreeable to plan. documented in this encounter [facility] 04-08-2024 Telephone encounter Note Patient called reporting persistent fever of 105 F that is not reducing with medication. She has been to the ED in [place] multiple times and has been sent home every time. She also reports pain and green drainage from her surgical incision. Spoke to Svetlana Ye PA-C; she recommends that patient visit [facility] ED and and wants to inform patient that our team and residents will be able to round on her there. Patient is agreeable to plan. [facility] 04-02-2024 History of Present illness Narrative Diflucan Reason for Appointment: Patient ID: Sandie Nicholson [...] in female 12/19/2022 Mixed bipolar I disorder ([facility]) 01/24/2023 Chronic migraine without aura without status migrainosus, not intractable ([facility]) 01/24/2023 Generalized anxiety disorder ([facility]) 01/24/2023 Persistent disorder of initiating or maintaining sleep 01/24/2023 Mild persistent asthma ([facility]) 01/24/2023 Polycystic ovaries 01/24/2023 Psychogenic nonepileptic seizure ([facility]) 01/24/2023 Class 3 severe obesity due to excess calories without serious comorbidity with body mass index (BMI) of 50.0 to 59.9 in adult ([facility]) 03/21/2023 Mild persistent asthma with (acute) exacerbation ([facility]) 10/10/2023 Fatigue 01/01/2024 Encounter for long-term [...] Acute exacerbation of asthma with allergic rhinitis ([facility]) Allergies Asthma ([facility]) At low risk for fall Bipolar affective, mixed ([facility]) ([facility]) Change in blood pressure Cholecystitis 2009 Depressive disorder ([facility]) OMID (generalized anxiety disorder) ([facility]) History of hysterectomy 10/01/2021 Insomnia, persistent Migraines ([facility]) Mild persistent asthma without complication ([facility]) Morbid obesity with BMI of 40.0-44.9, adult ([facility]) PCOS (polycystic ovarian syndrome) Right otitis media Seizures ([facility]) HISTORY PAST MEDICAL HISTORY SOCIAL HISTORY Past Medical History: Diagnosis Date Acute exacerbation of asthma with allergic rhinitis ([facility]) Allergies Asthma ([facility]) At low risk for fall Bipolar affective, mixed ([facility]) ([facility] Change in blood pressure high and low Cholecystitis 2008 Chronic migraine without aura without status migrainosus, not intractable ([facility]) Depressive disorder ([facility]) OMID (generalized anxiety disorder) ([facility]) History of hysterectomy 10/01/2021 Insomnia, persistent Migraines ([facility]) Mild persistent asthma without complication ([facility]) Morbid obesity with BMI of 40.0-44.9, adult ([facility]) PCOS (polycystic ovarian syndrome) Psychogenic nonepileptic seizure ([facility]) Right otitis media Seizures ([facility]) stressed induced Social History Tobacco Use [...] nursing note reviewed. Exam conducted with a tire technician present. Vitals: Estimated body mass index is [...] Blas DO documented in this encounter [facility] 04-01-2024 Miscellaneous Notes Images from the original note were not included. Medication Received: Yes[facility] Clinical Staff Hello good afternoon I m still in a lot [...] see how she was feeling today. Our INTENSIVE CARE UNIT NURSE wanted to make sure that she's not having any nausea, vomiting, fever or chills. The patient didn't answer, so I left her a message. documented in this encounter [facility] 04-01-2024 Telephone encounter Note Images from the original note were not included. Medication Received: Yesterday [facility] Clinical Staff Hello good afternoon I m still in a lot [...] see how she was feeling today. Our INTENSIVE CARE UNIT NURSE wanted to make sure that she's not having any nausea, vomiting, fever or chills. The patient didn't answer, so I left her a message. [facility] 04-01-2024 History of Present illness Narrative Dontrell called with persistent post operative pain s/p BSO. Her 5 day prescription for oxycodone did not contain enough tablets to be taken every 4 hours as written on prescription. Refill of 7 day supply, 42 tablets provided. Advised on proper dosing and administration, potential side effects, and post op restrictions. MARY Cintron 04/01/24 1107 documented in this encounter [facility] 04-01-2024 Miscellaneous Notes Patient had surgery [...] for pain meds also. Message to Svetlana MALONE Oxycodone refilled by Junior Newberry to let her know. Reminded her of post op restrictions,, medication safety, and alternating with ibuprofen .She states she does not have Ibuprofen. Message to Svetlana to prescribe. Acknowledged understanding She states her mom is now helping her with her sick child. [facility] 04-01-2024 Telephone encounter Note Patient had surgery on 03/28. lysis of adhesions, bilateral salpingo-oophorectomy. She has taken all her pain meds and is requesting more. has been taking care of her sick child and carrying her which has increased her pain. Has been taking oxycodone every 4 hours due to that. Looks like she messaged general surgery yesterday asking for pain meds also. Message to Svetlana MALONE [facility] 04-01-2024 Telephone encounter Note Oxycodone refilled by Junior Newberry to let her know. Reminded her of post op restrictions,, medication safety, and alternating with ibuprofen .She states she does not have Ibuprofen. Message to Svetlana to prescribe. Acknowledged understanding She states her mom is now helping her with her sick child. [employer] [facility] 03-25-2024 Instructions Mari Saldaña RN - 03/25/2024 2:15 PM EST Your surgery/procedure is scheduled at [facility] on 03-28-2024 at 9am Arrival Time: 7am [facility] Address: [address] [place] [address]. [place] [address] [address] located on [facility]. Report to the Entrance B. Check in at the information desk the surgery. The waiting room located on the second floor. If you have any questions prior to surgery, please call Pre-Admission Clinic at [phone] between 7:30 am and 4:30 pm Monday through Monday. If you have questions the morning of surgery, please call the Pre-op Department at [phone]. Notify your SURGEON if you develop any [...] piercings ,hair extensions that contain metal, nail kazakh, make-up, and contact lens. You may brush [...] RIGHTS AND RESPONSIBILITIES As a patient at [facility], you have the right to: Receive medical care and be informed of who is taking care of you Be treated with dignity and respect Have a family member/u.s. representative of choice and your physician notified of your admission Receive information and actively participate in decisions about your care and treatment Refuse care, treatment and services Decide who may provide your support and speak for you Access druze and spiritual services Participate in ethical issues [...] of hospital charges and payment methods Patient/patient u.s. representative responsibilities are to: Provide information about [...] in clean clothes. documented in this encounter [facility] 03-21-2024 Miscellaneous Notes ----- Message from Dr. Mundo Martinez MD sent at 03/21/2024 11:39 AM EST ----- Should be ok ----- Message ----- From: Nicky Zapata Sent: 03/21/2024 9:43 AM EST To: Mundo Martinez MD Pt is going up to the [facility] tomorrow and getting migraine infusion Vyepti infusion for migranies, during the infusion pt will get Toradol and benadryl, patient has surgery next week and she wants to make sure this infusion is ok to take and will not delay surgery, please advise. Pt was notified of Dr. Martinez response documented in this encounter [facility] 03-21-2024 Telephone encounter Note ----- Message from Dr. Mundo Martinez MD sent at 03/21/2024 11:39 AM EST ----- Should be ok ----- Message ----- From: Nicky Zapata Sent: 03/21/2024 9:43 AM EST To: Mundo Martinez MD Pt is going up to the [facility] tomorrow and getting migraine infusion Vyepti infusion for migranies, during the infusion pt will get Toradol and benadryl, patient has surgery next week and she wants to make sure this infusion is ok to take and will not delay surgery, please advise. [facility] 03-21-2024 Telephone encounter Note Pt was notified of Dr. Martinez response [facility] 03-21-2024 Note HNO ID: [id number] Author: SAGAR BARTH APRN.INTENSIVE CARE UNIT NURSE Service: ? Author Type: Nurse Practitioner Type: [...] visit. Either the patient or their legal u.s. representative has been informed of the risks [...] and without status migrainosus (primary encounter diagnosis) April Nicholson is a 28 year old year [...] XL, Qudexy) Anti-Depressant and Antipsychotic Amitriptyline (Elavil) [place] (Eskalith, Lithobid) Nortriptyline (Pamelor, Aventyl) Anti-Migraine Dihydroergotamine [...] ZOLMitriptan (ZOMIG) 5 mg nasal sprayUse 1 [place] in the nose as needed at onset [...] by mouth ann (more content not included)... [facility] 03-21-2024 History of Present illness Narrative Images from the original note [...] visit. Either the patient or their legal u.s. representative has been informed of the risks [...] and without status migrainosus (primary encounter diagnosis) April Nicholson is a 28 year old year [...] XL, Qudexy) Anti-Depressant and Antipsychotic Amitriptyline (Elavil) [place] (Eskalith, Lithobid) Nortriptyline (Pamelor, Aventyl) Anti-Migraine Dihydroergotamine [...] ZOLMitriptan (ZOMIG) 5 mg nasal spray^Use 1 [place] in the nose as needed at onset [...] and discussed these with the patient: yes Sagar Barth APRN.INTENSIVE CARE UNIT NURSE HEADACHE SCORES: 12/05/2023 01/17/2024 03/20/2024 Headache Questions [...] Lymph 1.00 - 4.00 k/uL 0.84 Abs [place] <0.87 k/uL 0.06 Abs Eosin <0.46 k/uL [...] spontaneous and fluent without dysarthria. Short and student counsellor memory, cognition and general fund of knowledge [...] and without status migrainosus (primary encounter diagnosis) April Nicholson is a 28 year old year [...] due to nature of telehealth. Prior Authorization: April Nicholson has been previously approved for Calcitonin [...] XL, Qudexy) Anti-Depressant and Antipsychotic Amitriptyline (Elavil) [place] (Eskalith, Lithobid) Nortriptyline (Pamelor, Aventyl) Blood Pressure [...] Level of Service: Virtual Visit 30 minutes Sagar Barth APRN.CNP Headache Section [facility] March 21, 2024 documented in this encounter [facility] 03-20-2024 History of Present illness Narrative Images from the original note were not included. [facility] Patient - April Nicholson Age - 28 [facility] 1995 [id number] Referring physician: Dr. Martinez Reason for Consultation: Asthma HPI: April Nicholson is a 28 y.o. female with history of asthma who presents for urgent evaluation for perioperative risk stratification from her gynecology surgeon. Patient has been having some significant pain and plan is for robotic assisted lysis of adhesions and evaluation of an ovarian cyst. Patient has history significant for asthma. She has previously seen pulmonary with Dr. Jason at [facility]. She has been treated with Trelegy [...] Asthma BV (bacterial vaginosis) Depression Migraine Seizure ([facility]) Past Surgical History: Procedure Laterality Date APPENDECTOMY [...] hours as needed for wheezing. 06/07/22 Yes Derik Arthur APRN-WOOD albuterol (VENTOLIN HFA) 90 mcg/actuation inhaler INHALE TWO PUFFS BY MOUTH EVERY 4 HOURS NEEDED 06/07/22 Yes ELSIE Luke ARIPiprazole (ABILIFY) 10 mg tablet Take 1 [...] by mouth in the morning. 06/08/22 Yes SARAHI Mccall cyanocobalamin 1000 MCG tablet Take 1 tablet [...] (exposure to allergen). 06/07/22 Yes ELSIE Luke safmnarxsuo-boumtepvh-nihrtieo (TRELEGY ELLIPTA) 100-62.5-25 mcg blister with device [...] by mouth in the morning. 06/07/22 Yes Derik Arthur APRN-WOOD omeprazole (PriLOSEC) 20 mg capsule Take 1 capsule (20 mg total) by mouth in the morning. 01/27/22 Yes Alba Grace APRN-FADY ondansetron ODT (ZOFRAN ODT) 4 mg disintegrating tablet Dissolve 1 tablet (4 mg total) on tongue every 8 (eight) hours as needed for nausea for up to 20 doses. 02/10/24 Yes Alec Corrales MD promethazine (PHENERGAN) 25 mg tablet Take 1 tablet (25 mg total) by mouth every 6 (six) hours as needed for nausea or vomiting. 08/10/23 Yes Katie Sue APRN-INTENSIVE CARE UNIT NURSE rimegepant 75 mg tablet,disintegrating Dissolve 1 tablet [...] chest is warranted. Dr. Mariah Peña DO. [facility] Office: [phone] documented in this encounter [facility] 03-18-2024 History of Present illness Narrative Subjective: April is a 28 y.o. female here for [...] which is why she doesn't go to [place] or [place]. She has had diarrhea for the last [...] lot of steroids. 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 Last hospitalized a couple years ago. Not Intubated. Oncology History No overview note April : Reports Early satiety Reports Abdominal distention [...] Asthma BV (bacterial vaginosis) Depression Migraine Seizure ([facility]) Lamictal for non-epileptiform seizure and depression/anxiety - [...] procedures Referring and communicating with other health rn wound care (not separately reported) Documenting clinical information in the electronic or other health record Independently interpreting results (not separately reported) and communicating results to the patient/family/caregiver Care coordination (not separately reported) [place] and lamictal, trazodone as needed MUNDO MARTINEZ MD documented in this encounter [facility] [employer] [facility] 03-06-2024 History of Present illness Narrative Reason for Appointment: Patient ID: [...] in female 12/19/2022 Mixed bipolar I disorder ([facility]) 01/24/2023 Chronic migraine without aura without status migrainosus, not intractable ([facility]) 01/24/2023 Generalized anxiety disorder ([facility]) 01/24/2023 Persistent disorder of initiating or maintaining sleep 01/24/2023 Mild persistent asthma ([facility]) 01/24/2023 Polycystic ovaries 01/24/2023 Psychogenic nonepileptic seizure ([facility]) 01/24/2023 Class 3 severe obesity due to excess calories without serious comorbidity with body mass index (BMI) of 50.0 to 59.9 in adult ([facility]) 03/21/2023 Mild persistent asthma with (acute) exacerbation ([facility]) 10/10/2023 Fatigue 01/01/2024 Encounter for long-term [...] Acute exacerbation of asthma with allergic rhinitis ([facility]) Allergies Asthma ([facility]) At low risk for fall Bipolar affective, mixed (HCC) ([facility]) Change in blood pressure Cholecystitis 2008 Depressive disorder ([facility]) OMID (generalized anxiety disorder) ([facility]) History of hysterectomy 10/01/2021 Insomnia, persistent Migraines ([facility]) Mild persistent asthma without complication ([facility]) Morbid obesity with BMI of 40.0-44.9, adult ([facility]) PCOS (polycystic ovarian syndrome) Right otitis media Seizures ([facility]) HISTORY PAST MEDICAL HISTORY SOCIAL HISTORY Past Medical History: Diagnosis Date Acute exacerbation of asthma with allergic rhinitis ([facility]) Allergies Asthma ([facility]) At low risk for fall Bipolar affective, mixed (HCC) ([facility]) Change in blood pressure high and low Cholecystitis 2008 Chronic migraine without aura without status migrainosus, not intractable ([facility]) Depressive disorder ([facility]) OMID (generalized anxiety disorder) ([facility]) History of hysterectomy 10/01/2021 Insomnia, persistent Migraines ([facility]) Mild persistent asthma without complication ([facility]) Morbid obesity with BMI of 40.0-44.9, adult ([facility]) PCOS (polycystic ovarian syndrome) Psychogenic nonepileptic seizure ([facility]) Right otitis media Seizures ([facility]) stressed induced Social History Tobacco Use [...] nursing note reviewed. Exam conducted with a tire technician present. Vitals: Estimated body mass index is [...] Blas DO documented in this encounter [facility] 02-28-2024 History of Present illness Narrative Reason for Appointment: Patient ID: [...] in female 12/19/2022 Mixed bipolar I disorder ([facility]) 01/24/2023 Chronic migraine without aura without status migrainosus, not intractable ([facility]) 01/24/2023 Generalized anxiety disorder ([facility]) 01/24/2023 Persistent disorder of initiating or maintaining sleep 01/24/2023 Mild persistent asthma ([facility]) 01/24/2023 Polycystic ovaries 01/24/2023 Psychogenic nonepileptic seizure ([facility]) 01/24/2023 Class 3 severe obesity due to excess calories without serious comorbidity with body mass index (BMI) of 50.0 to 59.9 in adult ([facility]) 03/21/2023 Mild persistent asthma with (acute) exacerbation ([facility]) 10/10/2023 Fatigue 01/01/2024 Encounter for long-term [...] Acute exacerbation of asthma with allergic rhinitis ([facility]) Allergies Asthma ([facility]) At low risk for fall Bipolar affective, mixed (HCC) ([facility]) Change in blood pressure Cholecystitis 2008 Depressive disorder ([facility]) OMID (generalized anxiety disorder) ([facility]) History of hysterectomy 10/01/2021 Insomnia, persistent Migraines ([facility]) Mild persistent asthma without complication ([facility]) Morbid obesity with BMI of 40.0-44.9, adult ([facility]) PCOS (polycystic ovarian syndrome) Right otitis media Seizures ([facility]) HISTORY PAST MEDICAL HISTORY SOCIAL HISTORY Past Medical History: Diagnosis Date Acute exacerbation of asthma with allergic rhinitis ([facility]) Allergies Asthma ([facility]) At low risk for fall Bipolar affective, mixed (HCC) ([facility]) Change in blood pressure high and low Cholecystitis 2008 Chronic migraine without aura without status migrainosus, not intractable ([facility]) Depressive disorder ([facility]) OMID (generalized anxiety disorder) ([facility]) History of hysterectomy 10/01/2021 Insomnia, persistent Migraines ([facility]) Mild persistent asthma without complication ([facility]) Morbid obesity with BMI of 40.0-44.9, adult ([facility]) PCOS (polycystic ovarian syndrome) Psychogenic nonepileptic seizure ([facility]) Right otitis media Seizures ([facility]) stressed induced Social History Tobacco Use [...] nursing note reviewed. Exam conducted with a tire technician present. Vitals: Estimated body mass index is [...] Blas DO documented in this encounter [facility] 02-26-2024 Telephone encounter Note Pt advised [facility] 02-26-2024 Miscellaneous Notes Pt advised [facility] ACCEPT PT Patients dad tyrone harmon is gma and they are both pts of DB. She wondered if she could become a oil well driller here with us. And if not db she asked for dominic. Pt does know we are not accepting new patients but asked if I could send this back - was told no on Monday. documented in this encounter [facility] 02-26-2024 Telephone encounter Note [facility] ACCEPT PT [facility] 02-26-2024 Telephone encounter Note Patients dad tyrone harmon is gma and they are both pts of DB. She wondered if she could become a oil well driller here with us. And if not db she asked for dominic. Pt does know we are not accepting new patients but asked if I could send this back - was told no on Monday. [facility] 02-22-2024 Telephone encounter Note Summary: MARY Jordan Images from the original note were not included. Prior Authorization submitted via CoverCamSemi on 02/22/2024: Insurance: [place] Medicaid Medication: Zolmitriptan Chong Code: [email or web address] Awaiting Response [facility] 02-22-2024 Miscellaneous Notes Summary: MARY Cobbmitriptaradha Images from the original note were not included. Prior Authorization submitted via CoverCamSemi on 02/22/2024: Insurance: [place] Medicaid Medication: Zolmitriptan Chong Code: [email or web address] Awaiting Response documented in this encounter [facility] 02-09-2024 History of Present illness Narrative Associated Problem(s): Mild persistent asthma with (acute) exacerbation ([facility]) Recent flare but not able to [...] IV contrast documented in this encounter [facility] 01-30-2024 Note Addended by: SAGAR BARTH on: 01/30/2024 02:59 PM Modules accepted: Orders [facility] 01-30-2024 Telephone encounter Note The following approved medication requests have been transmitted electronically. Requested Prescriptions Signed Prescriptions Disp Refills ZOLMitriptan (ZOMIG) 5 mg nasal spray 12 Each 5 Sig: Use 1 [place] in the nose as needed at onset of migraine headache. If symptoms persist or return, may repeat dose in other nostril after 2 hours. Maximum of 2 sprays per 24 hours Authorizing Provider: SAGAR BARTH APRN.CNP [facility] 01-30-2024 Miscellaneous Notes Addended by: SAGAR BARTH on: 01/30/2024 02:59 PM Modules accepted: Orders The following approved medication requests have been transmitted electronically. Requested Prescriptions Signed Prescriptions Disp Refills ZOLMitriptan (ZOMIG) 5 mg nasal spray 12 Each 5 Sig: Use 1 [place] in the nose as needed at onset of migraine headache. If symptoms persist or return, may repeat dose in other nostril after 2 hours. Maximum of 2 sprays per 24 hours Authorizing Provider: SAGAR BARTH APRN.CNP Dispense 12 pls. I rewrote the rx. Sagar Barth APRN.CNP Per last Rx on 11/10/2023: Disp Refills Start End ZOLMitriptan (ZOMIG) 5 mg nasal spray 10 Each 5 11/10/2023 -- Sig: Use 1 [place] in the nose as needed at onset [...] to verify quantity on zolmitriptan. Callback number: [phone] documented in this encounter [facility] 01-30-2024 Telephone encounter Note Dispense 12 pls. I rewrote the rx. Sagar Barth APRN.FADY [facility] 01-29-2024 Telephone encounter Note Per last Rx on 11/10/2023: Disp Refills Start End ZOLMitriptan (ZOMIG) 5 mg nasal spray 10 Each 5 11/10/2023 -- Sig: Use 1 [place] in the nose as needed at onset of migraine headache. If symptoms persist or return, may repeat dose in other nostril after 2 hours. Maximum of 2 sprays per 24 hours I called the pharmacy and hey need to know if Provider would like to dispense #6 or #12 cartridges. They do not come in 10. Please advise. Thank you [facility] 01-29-2024 Telephone encounter Note Name of Caller: nicky Relationship to patient: pharmacy Last visit in this department: 09/19/2023 Reason for Call: Other : need to verify quantity on zolmitriptan. Callback number: [phone] [facility] 01-23-2024 History of Present illness Narrative Associated Problem(s): SOB (shortness of breath) on exertion Severe symptom and check CXR. Use albuterol PRN and start prednisone. Associated Problem(s): Mild persistent asthma with (acute) exacerbation ([facility]) Continued symptoms and treat with prednisone [...] Visit Mild persistent asthma with (acute) exacerbation ([facility]) - Primary Continued symptoms and treat [...] and differential documented in this encounter [facility] 01-22-2024 Note HNO ID: [id number] Author: GETACHEW CANCINO RN Service: ? Author Type: Registered Nurse Type: Progress Notes Filed: 01/22/2024 15:58 Note Text: Pt in for third day of infusion. Pt rated headache 9/10. Pt has severe nausea and moderate dizziness. Educated pt on medications to be administered. Pt agreed to proceed as ordered. Advanced Solutions Architect yes Patient reports she stopped vomiting but nausea is still pretty severe. She continues to retain fluids, hands and lower extremities appear puffy, non pitting edema. Palomo Morales INTENSIVE CARE UNIT NURSE aware, patient seen. Patient referred to pcp [...] via wheelchair to her in the lobby. [facility] 01-22-2024 History of Present illness Narrative Pt in for third day of infusion. Pt rated headache 9/10. Pt has severe nausea and moderate dizziness. Educated pt on medications to be administered. Pt agreed to proceed as ordered. Advanced Solutions Architect yes Patient reports she stopped vomiting but nausea is still pretty severe. She continues to retain fluids, hands and lower extremities appear puffy, non pitting edema. Palomo Morales CNP aware, patient seen. Patient referred [...] in the lobby. documented in this encounter [facility] 01-22-2024 Note HNO ID: [id number] Author: RAIZA MORALES APRN.FADY Service: ? Author Type: Nurse Practitioner Type: Progress Notes Filed: 01/22/2024 13:57 Note Text: Headache [facility] Infusion JUAN A Note Subjective: April Nicholson is a 28 year old year [...] Lymph 1.00 - 4.00 k/uL 0.84 Abs [place] <0.87 k/uL 0.06 Abs Eosin <0.46 k/uL [...] ZOLMitriptan (ZOMIG) 5 mg nasal sprayUse 1 [place] in the nose as needed at onset [...] with status migrainosus (primary encounter diagnosis) Plan: April Nicholson is a 28 year old year [...] which included p (more content not included)... [facility] 01-22-2024 History of Present illness Narrative Images from the original note were not included. [facility] Infusion JUAN A Note Subjective: April Nicholson is a 28 year old year [...] Lymph 1.00 - 4.00 k/uL 0.84 Abs [place] <0.87 k/uL 0.06 Abs Eosin <0.46 k/uL [...] ZOLMitriptan (ZOMIG) 5 mg nasal spray^Use 1 [place] in the nose as needed at onset [...] and clear, coherent, and relevant. 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 Attention span and concentration are good. Cranial Nerves: VII-face is symmetric without evidence of weakness. VIII-hearing intact. Assessment: (G43.711) Chronic migraine without aura, with intractable migraine, so stated, with status migrainosus (primary encounter diagnosis) Plan: April Nicholson is a 28 year old year [...] which included preparing to see the patient, [id number] patient care, completing clinical documentation, and obtaining and/or reviewing separately obtained history. Raiza Morales APRN.FADY Headache Section [facility] January 22, 2024 documented in this encounter [facility] 01-19-2024 Note HNO ID: [id number] Author: GETACHEW CANCINO RN Service: ? Author Type: Registered Nurse Type: Progress Notes Filed: 01/19/2024 11:55 Note Text: Pt in for second day of infusion. Pt rated headache 10/10. Pt has severe nausea and severe dizziness. Educated pt on medications to be administered. Pt agreed to proceed as ordered. Advanced Solutions Architect: yes Patient took Valium 10 mg tabl [...] Pt d/c via wheelchair to her in hospital for behavioral medicine. Instructed patient and to take caution with ambulating. Patient is feeling sedated. [facility] 01-19-2024 History of Present illness Narrative Pt in for second day of infusion. Pt rated headache 10/10. Pt has severe nausea and severe dizziness. Educated pt on medications to be administered. Pt agreed to proceed as ordered. Advanced Solutions Architect: yes Patient took Valium 10 mg tabl [...] Pt d/c via wheelchair to her in hospital for behavioral medicine. Instructed patient and to take caution with ambulating. Patient is feeling sedated. documented in this encounter [facility] 01-17-2024 Note HNO ID: [id number] Author: CLAUDIA MAYNARD RN Service: ? Author Type: Registered [...] PRN Zofran given for nausea. Discharged to city route driver via wheelchair. [facility] 01-17-2024 History of Present illness Narrative Patient arrived to infusion suite [...] PRN Zofran given for nausea. Discharged to city route driver via wheelchair. documented in this encounter [facility] 01-17-2024 Note HNO ID: [id number] Author: ОЛЬГА AGUILAR APRN.INTENSIVE CARE UNIT NURSE Service: ? Author Type: Nurse Practitioner Type: Progress Notes Filed: 01/17/2024 07:59 Note Text: Headache Center - Virtual Visit Infusion Triage This visit was conducted as a virtual visit, with patient's permission, via ZOOM. It required patient-provider interaction for the medical decision making as documented below. Patient stated name and Patient location [place], [place] I have communicated my name and active licensure. The patient's identity and physical location were verified at the time of this visit. Either the patient or their legal u.s. representative has been informed of the risks and benefits of -- and alternatives to -- treatment through a remote evaluation and consents to proceed with the evaluation remotely. HPI: April Nicholson is a 28 year old year old female, with a history of asthma, anxiety, depression, PCOS, occipital neuralgia, psychogenic nonepileptic seizures, and chronic migraine. following up today virtually to discuss infusion therapy. Date of last visit: 12/05/23 Onset of current headache: 12/06/23 What medications have you tried for this headache cycle: Parafon Forte, New health events/diagnosis since last visit (AL/stroke/DM/HTN/etc): denies Cardiovascular risk factors: obesity Past infusion intolerances: 03/2023; Phenergan,Benadryl,Toradol,NS,Ro baxin,compazine(listed intolerance) Headache 1 Location: holcephalic Quality/Description: throbbing and pressure Associated Symptoms: Photophobia: yes Phonophobia: yes Nausea: yes Vomiting: yes Other symptoms: osmophobia Worse with activity: yes Number of migraine headache days/month: 20 Migraine headache severity: 11/29 Number of headache free days/month: 7 Duration [...] Lymph 1.00 - 4.00 k/uL 0.84 Abs [place] <0.87 k/uL 0.06 Abs Eosin <0.46 k/uL <0.03 Abs Baso <0.11 k/uL <0.03 NRBC /100 WBC 0.0 Analgesic Ketorolac (Toradol) Anti-Convulsant Lamotrigine (Lamictal) Topiramate (Topamax, Trokendi XL, Qudexy) Anti-Depressant and Antipsychotic Amitriptyline (Elavil) [place] (Eskalith, Lithobid) Nortriptyline (Pamelor, Aventyl) Anti-Migraine Dihydroergotamine [...] sprayUse 1 Sp (more content not included)... [facility] 01-16-2024 Telephone encounter Note PAPO: 12/05/2023 with Ольга Aguilar APRN.INTENSIVE CARE UNIT NURSE [facility] 01-16-2024 Miscellaneous Notes PAPO: 12/05/2023 with Ольга Aguilar APRN.INTENSIVE CARE UNIT NURSE documented in this encounter [facility] 01-09-2024 History of Present illness Narrative Associated Problem(s): Chronic migraine without aura without status migrainosus, not intractable (CMS/HCC) PINEDA worse and follow with specialists. Associated [...] labs. Associated Problem(s): Mixed bipolar I disorder (CMS/HCC) Denies worsening [...] MG tablet documented in this encounter [facility] 01-05-2024 Note HNO ID: [id number] Author: LENNIE PALACIOS RN Service: ? Author [...] after Benadryl given. 1345 Patient discharged to city route driver in wheelchair , patient sleepy but verbalizing and ambulating wheelchair used as a precaution Patient able to walk to wheelchair without difficulty. [facility] 01-05-2024 History of Present illness Narrative 1230 Patient admitted for Vyepti [...] after Benadryl given. 1345 Patient discharged to city route driver in wheelchair , patient sleepy but verbalizing and ambulating wheelchair used as a precaution Patient able to walk to wheelchair without difficulty. documented in this encounter [facility] 12-05-2023 History of Present illness Narrative Images from the original note were not included. Headache Center - Follow up Virtual Visit Last OV: 08/23/23 Sona Barth APRN Accompanied by: Self This visit was conducted as a virtual visit, with patient's permission, via ZOOM. It required patient-provider interaction for the medical decision making as documented below. Patient stated name and Patient location [place], [place] I have communicated my name and active licensure. The patient's identity and physical location were verified at the time of this visit. Either the patient or their legal u.s. representative has been informed of the risks [...] 01/05/24 Decreased Plan from last visit: IMPRESSION: April Nicholson is a 27 year old year [...] (ZOMIG) 5 mg nasal spray Use 1 [place] in the nose as needed at onset [...] these with the patient: yes Ольга Aguilar APRN.INTENSIVE CARE UNIT NURSE Studies to Review: No New Health [...] and without status migrainosus (primary encounter diagnosis) April Nicholson is a 28 year old year old female, with a history of asthma, anxiety, depression, PCOS, occipital neuralgia, psychogenic nonepileptic seizures, and chronic migraine.. Her headache intensity decreased after first Vyepti April Nicholson has been previously approved for Calcitonin [...] XL, Qudexy) Anti-Depressant and Antipsychotic Amitriptyline (Elavil) [place] (Eskalith, Lithobid) Nortriptyline (Pamelor, Aventyl) Blood Pressure [...] which included preparing to see the patient, [id number] patient care, completing clinical documentation, and counseling and educating the patient/family/caregiver. Ольга Aguilar APRN.FADY documented in this encounter [facility] 12-05-2023 Note HNO ID: [id number] Author: ОЛЬГА AGUILAR APRN.FADY Service: ? Author [...] below. Patient stated name and Patient location [place], [place] I have communicated my name and active licensure. The patient's identity and physical location were verified at the time of this visit. Either the patient or their legal u.s. representative has been informed of the risks [...] 01/05/24 Decreased Plan from last visit: IMPRESSION: April Nicholson is a 27 year old year [...] (ZOMIG) 5 mg nasal spray Use 1 [place] in the nose as needed at onset [...] 03/22/2023 07/10/2023 1 (more content not included)... [facility] 11-15-2023 History of Present illness Narrative Associated Problem(s): Mixed bipolar I [...] per tablet documented in this encounter [facility] 11-10-2023 Telephone encounter Note The following approved medication requests have been transmitted electronically. Requested Prescriptions Signed Prescriptions Disp Refills ZOLMitriptan (ZOMIG) 5 mg nasal spray 10 Each 5 Sig: Use 1 [place] in the nose as needed at onset of migraine headache. If symptoms persist or return, may repeat dose in other nostril after 2 hours. Maximum of 2 sprays per 24 hours Authorizing Provider: SAGAR BARTH keTORolac (TORADOL) 10 mg tablet 20 tablet 5 Sig: Take 1 tablet by mouth every 6 hours as needed (severe migraine). Authorizing Provider: SAGAR BARTH chlorzoxazone (PARAFON FORTE DSC) 500 mg tablet 20 tablet 5 Sig: Take 1 tablet by mouth two times a day as needed for muscle spasm (migraine). Authorizing Provider: SAGAR BARTH APRN.CNP [facility] 11-10-2023 Miscellaneous Notes The following approved medication requests have been transmitted electronically. Requested Prescriptions Signed Prescriptions Disp Refills ZOLMitriptan (ZOMIG) 5 mg nasal spray 10 Each 5 Sig: Use 1 [place] in the nose as needed at onset of migraine headache. If symptoms persist or return, may repeat dose in other nostril after 2 hours. Maximum of 2 sprays per 24 hours Authorizing Provider: SAGAR BARTH keTORolac (TORADOL) 10 mg tablet 20 tablet 5 Sig: Take 1 tablet by mouth every 6 hours as needed (severe migraine). Authorizing Provider: SAGAR BARTH chlorzoxazone (PARAFON FORTE DSC) 500 mg tablet 20 tablet 5 Sig: Take 1 tablet by mouth two times a day as needed for muscle spasm (migraine). Authorizing Provider: SAGAR BARTH APRN.INTENSIVE CARE UNIT NURSE patient requesting refill via flaveithart. Last OV: 09/19/2023 Future OV: None scheduled Last prescribed: 4 months ago (07/10/2023) by Sagar Barth APRN.INTENSIVE CARE UNIT NURSE Requested Prescriptions Pending Prescriptions Disp Refills ZOLMitriptan (ZOMIG) 5 mg nasal spray 10 Each 5 Sig: Use 1 [place] in the nose as needed at onset [...] muscle spasm (migraine). documented in this encounter [facility] 11-10-2023 Telephone encounter Note The following approved medication requests have been transmitted electronically. Requested Prescriptions Signed Prescriptions Disp Refills promethazine (PHENERGAN) 25 mg tablet 90 tablet 5 Sig: Take 1 tablet by mouth every 4 hours as needed. FOR NAUSEA Authorizing Provider: SAGAR BARTH APRN.CNP [facility] 11-10-2023 Miscellaneous Notes The following approved medication requests have been transmitted electronically. Requested Prescriptions Signed Prescriptions Disp Refills promethazine (PHENERGAN) 25 mg tablet 90 tablet 5 Sig: Take 1 tablet by mouth every 4 hours as needed. FOR NAUSEA Authorizing Provider: SAGAR BARTH APRN.CNP Physician: Tab Call from patient requesting refill. Please E-Scribe Last office visit 09/19/23 with Green in person Next office visit N/A Requested Prescriptions Pending Prescriptions Disp Refills promethazine (PHENERGAN) 25 mg tablet 90 tablet 1 Sig: Take 1 tablet by mouth every 4 hours as needed. FOR NAUSEA Pharmacy Name: [facility] documented in this encounter [facility] 11-10-2023 Telephone encounter Note Physician: Tab Call from patient requesting refill. Please E-Scribe Last office visit 09/19/23 with Green in person Next office visit N/A Requested Prescriptions Pending Prescriptions Disp Refills promethazine (PHENERGAN) 25 mg tablet 90 tablet 1 Sig: Take 1 tablet by mouth every 4 hours as needed. FOR NAUSEA Pharmacy Name: [facility] 11-10-2023 Telephone encounter Note patient requesting refill via Mychart. Last OV: 09/19/2023 Future OV: None scheduled Last prescribed: 4 months ago (07/10/2023) by Sagar Barth APRN.INTENSIVE CARE UNIT NURSE Requested Prescriptions Pending Prescriptions Disp Refills ZOLMitriptan (ZOMIG) 5 mg nasal spray 10 Each 5 Sig: Use 1 [place] in the nose as needed at onset [...] day as needed for muscle spasm (migraine). [facility] 10-13-2023 Note HNO ID: [id number] Author: GETACHEW CANCINO RN Service: ? Author Type: Registered Nurse Type: Progress Notes Filed: 10/13/2023 14:00 Note Text: Pt in for Vyepti infusion. Pt rated headache 8 /10. Pt has severe nausea and mild dizziness. Educated pt on medications to be administered. Pt agreed to proceed as ordered. Advanced Solutions Architect: yes Zofran 8 mg IVP given for [...] drive patient home. Patient d/c via wheelchair.. [facility] 10-13-2023 History of Present illness Narrative Pt in for Vyepti infusion. Pt rated headache 8 /10. Pt has severe nausea and mild dizziness. Educated pt on medications to be administered. Pt agreed to proceed as ordered. Advanced Solutions Architect: yes Zofran 8 mg IVP given for severe nausea. 1310 Patient started sneezing, stated she has light congestion. Shane Lepe in to see patient. Benadryl 50 mg IVP given. Per MARY Summers ok to finish Vyepti. Toradol ordered forheadache 09/29. 1312 Toradol 30 mg IVP given, Patient [...] d/c via wheelchair.. documented in this encounter [facility] 10-10-2023 History of Present illness Narrative Associated Problem(s): Mild persistent asthma with (acute) exacerbation ([facility]) Continued symptoms and treat with prednisone [...] Visit Mild persistent asthma with (acute) exacerbation ([facility]) Continued symptoms and treat with prednisone [...] per tablet documented in this encounter [facility] 09-19-2023 History of Present illness Narrative Images from the original note were not included. Outpatient [facility] - Follow Up Visit Accompanied by: Self Primary Problem List: ACTIVE PROBLEM LIST Seizure-Like Activity (Hcc) Psychogenic Nonepileptic Seizure Intractable Chronic Migraine Without Aura and With Status Migrainosus Chronic Migraine Without Aura, With Intractable Migraine, So Stated, With Status Migrainosus Chief Complaint: Patient presents with: Headache Interval Headache History: April Nicholson is a 27 year old year [...] XL, Qudexy) Anti-Depressant and Antipsychotic Amitriptyline (Elavil) [place] (Eskalith, Lithobid) Nortriptyline (Pamelor, Aventyl) Anti-Migraine Dihydroergotamine [...] ZOLMitriptan (ZOMIG) 5 mg nasal spray^Use 1 [place] in the nose as needed at onset [...] and discussed these with the patient: yes Sagar Barth APRN.INTENSIVE CARE UNIT NURSE HEADACHE SCORES: 03/22/2023 07/10/2023 09/19/2023 Headache [...] spontaneous and fluent without dysarthria. 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 Attention span and concentration are excellent. Cranial Nerves: II-Visual duarte are full. III, IV, -EOMI, VII-face is symmetric without evidence of weakness. VIII-hearing grossly intact. XII-No atrophy or fasciculations of the tongue. Motor: Normal muscle tone and bulk. No evidence of atrophy or fasciculations. Gait examination is normal. IMPRESSION: April Nicholson is a 27 year old year [...] XL, Qudexy) Anti-Depressant and Antipsychotic Amitriptyline (Elavil) [place] (Eskalith, Lithobid) Nortriptyline (Pamelor, Aventyl) Blood Pressure [...] which included preparing to see the patient, [id number] patient care, completing clinical documentation, obtaining and/or reviewing separately obtained history, counseling and educating the patient/family/caregiver, ordering medications, tests, or procedures, and care coordination (not separately reported). Sagar Barth APRN.FADY Headache Section [facility] September 19, 2023 documented in this encounter [facility] 09-19-2023 Note HNO ID: [id number] Author: SAGAR BARTH APRN.INTENSIVE CARE UNIT NURSE Service: ? Author Type: Nurse Practitioner Type: [...] Patient presents with: Headache Interval Headache History: April Nicholson is a 27 year old year [...] XL, Qudexy) Anti-Depressant and Antipsychotic Amitriptyline (Elavil) [place] (Eskalith, Lithobid) Nortriptyline (Pamelor, Aventyl) Anti-Migraine Dihydroergotamine [...] ZOLMitriptan (ZOMIG) 5 mg nasal sprayUse 1 [place] in the nose as needed at onset [...] and discussed these with the patient: yes Sagar Barth APRN.INTENSIVE CARE UNIT NURSE HEADACHE SCORES: 03/22/2023 07/10/2023 09/19/2023 Headache [...] of headache after (more content not included)... [facility] 08-18-2023 Instructions Curtis Lepe PA-C - 08/18/2023 2:39 PM EDT You received a greater occipital nerve block (GONB) today You may feel sore tomorrow at the site of the injection. You may use heat or ice for discomfort and gentle stretching. This should resolve in 24-36 hours. Greater Occipital Nerve Block (GONB) Article in [employer] Journal By: Molina Barraza MD Many patients with chronic headache report that their pain typically arises from the neck or, more specifically, the base of the skull. Often that pain arises on one side or the other and extends forward to involve the top of the head, the hoahaoism, the forehead, the eye or some combination [...] at least one more try. https://americanheadachesociety. org/wp-content/uploads//O mrloomxa-Blfek-Ncldfm_Gri-2010.p df documented in this encounter [facility] 08-18-2023 History of Present illness Narrative Images from the original note [...] diagnosis) Psychogenic nonepileptic seizure Interval Headache History: April Nicholson is a 27 year old year [...] to follow-up with epilepsy clinic -Follow-up with Sagar in 1 month Curtis Lepe PA-C Headache Section [facility] August 18, 2023 documented in this encounter [facility] 08-18-2023 Note HNO ID: [id number] Author: CURTIS LEPE PA-C Service: ? Author Type: Physician Collar Worker Type: Progress Notes Filed: 08/18/2023 14:39 [...] diagnosis) Psychogenic nonepileptic seizure Interval Headache History: April L Nicholson is a 27 year old year [...] to follow-up with epilepsy clinic -Follow-up with Sagar in 1 month Curtis Lepe PA-C Headache Section [facility] August 18, 2023 [facility] 08-16-2023 Telephone encounter Note Forwarded to provider for review. PAPO: 07/10/2023 Future OV: 09/19/2023 Encounter from [facility] today 08/16/2023 [facility] 08-16-2023 Miscellaneous Notes Forwarded to provider for review. PAPO: 07/10/2023 Future OV: 09/19/2023 Encounter from [facility] today 08/16/2023 documented in this encounter [facility] 07-10-2023 History of Present illness Narrative Images from the original note [...] visit. Either the patient or their legal u.s. representative has been informed of the risks [...] Migrainosus Chief Complaint: migraine Interval Headache History: April Nicholson is a 27 year old year [...] XL, Qudexy) Anti-Depressant and Antipsychotic Amitriptyline (Elavil) [place] (Eskalith, Lithobid) Nortriptyline (Pamelor, Aventyl) Anti-Migraine Dihydroergotamine [...] ZOLMitriptan (ZOMIG) 5 mg nasal spray^Use 1 [place] in the nose as needed at onset [...] and discussed these with the patient: yes Sagar Barth APRN.INTENSIVE CARE UNIT NURSE HEADACHE SCORES: 12/12/2022 03/22/2023 07/10/2023 Headache [...] Lymph 1.00 - 4.00 k/uL 0.84 Abs [place] <0.87 k/uL 0.06 Abs Eosin <0.46 k/uL [...] and without status migrainosus (primary encounter diagnosis) April Nicholson is a 27 year old year [...] - she will schedule prn Prior Authorization: April Nicholson has been previously approved for Calcitonin [...] XL, Qudexy) Anti-Depressant and Antipsychotic Amitriptyline (Elavil) [place] (Eskalith, Lithobid) Nortriptyline (Pamelor, Aventyl) Blood Pressure [...] (ZOMIG) 5 mg nasal spray Use 1 [place] in the nose as needed at onset [...] Level of Service: Virtual Visit 40 minutes Sagar Barth APRN.FADY Headache Section [facility] July 10, 2023 documented in this encounter [facility] 07-10-2023 Note HNO ID: [id number] Author: SAGAR BARTH APRN.FADY Service: ? Author Type: Nurse [...] visit. Either the patient or their legal u.s. representative has been informed of the risks [...] Migrainosus Chief Complaint: migraine Interval Headache History: April Nicholson is a 27 year old year [...] XL, Qudexy) Anti-Depressant and Antipsychotic Amitriptyline (Elavil) [place] (Eskalith, Lithobid) Nortriptyline (Pamelor, Aventyl) Anti-Migraine Dihydroergotamine [...] ZOLMitriptan (ZOMIG) 5 mg nasal sprayUse 1 [place] in the nose as needed at onset [...] and discussed these with the patient: yes Sagar Barth APRN.CNP HEADACHE SCORES: 12/12/2022 03/22/2023 07/10/2023 Headache Questions ER visits since last office visit: 6 6 8 Hospital stays [facility] (more content not included)... [facility] 06-26-2023 Telephone encounter Note Called Pt to clarify ER visit. States she was seen this morning at [facility] and given a Compazine and steroid shot States she cannot remember the name of steroid that was given. Information passed on to care team. Marc TOMAS RN Clinical [facility] 06-26-2023 Miscellaneous Notes Called Pt to clarify ER visit. States she was seen this morning at [facility] and given a Compazine and steroid shot States she cannot remember the name of steroid that was given. Information passed on to care team. Marc TOMAS RN Clinical [facility] documented in this encounter [facility] 06-26-2023 Telephone encounter Note Forwarded to provider for review. PAPO: 04/14/2023 with Suzan Driver APRN.CNP Future OV: None scheduled [facility] 06-26-2023 Miscellaneous Notes Forwarded to provider for review. PAPO: 04/14/2023 with Suzan Driver APRN.CNP Future OV: None scheduled [employer] message sent to patient to gain more information in regards to patient's migraine. documented in this encounter [facility] 06-26-2023 Telephone encounter Note Student Designedhart message sent to patient to gain more information in regards to patient's migraine. [facility] 04-14-2023 Instructions Suzan Driver APRN.INTENSIVE CARE UNIT NURSE - 04/14/2023 10:49 AM EST Follow [...] refilled without delays. documented in this encounter [facility] 04-14-2023 History of Present illness Narrative Images from the original note were not included. Headache Center Infusion JUAN A Note Primary Problem List: ACTIVE PROBLEM LIST Seizure-Like Activity (Hcc) Psychogenic Nonepileptic Seizure Intractable Chronic Migraine Without Aura and With Status Migrainosus Chronic Migraine Without Aura, With Intractable Migraine, So Stated, With Status Migrainosus Subjective: April Nicholson is a 27 year old year old female, with a history of asthma, anxiety, depression, PCOS, occipital neuralgia, psychogenic nonepileptic seizures, and migraine following up today for day 3 of infusions. 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 Plan: April L Nicholson is a 27 year old year old female, following up today for day 3 of infusions. Response to infusions: pain and nausea are improving Follow up/ discharge plan: f/u in 3 months Start aimovig this weekend Level of service: Est level 4 (30-39 min). Time spent 30 min on the day of service, which included preparing to see the patient, [id number] patient care, completing clinical documentation, obtaining and/or reviewing separately obtained history, performing a medically appropriate examination, counseling and educating the patient/family/caregiver, and ordering medications, tests, or procedures. Suzan Driver APRN.CNP Headache Section [facility] documented in this encounter [facility] 04-14-2023 Note HNO ID: [id number] Author: SUZAN DRIVER APRN.CNP Service: ? Author Type: Nurse Practitioner Type: Progress Notes Filed: 04/14/2023 10:49 Note Text: Headache Center Infusion JUAN A Note Primary Problem List: ACTIVE PROBLEM LIST Seizure-Like Activity (Hcc) Psychogenic Nonepileptic Seizure Intractable Chronic Migraine Without Aura and With Status Migrainosus Chronic Migraine Without Aura, With Intractable Migraine, So Stated, With Status Migrainosus Subjective: April Nicholson is a 27 year old year old female, with a history of asthma, anxiety, depression, PCOS, occipital neuralgia, psychogenic nonepileptic seizures, and migraine following up today for day 3 of infusions. 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 Plan: April Nicholson is a 27 year old year old female, following up today for day 3 of infusions. Response to infusions: pain and nausea are improving Follow up/ discharge plan: f/u in 3 months Start aimovig this weekend Level of service: Est level 4 (30-39 min). Time spent 30 min on the day of service, which included preparing to see the patient, [id number] patient care, completing clinical documentation, obtaining and/or reviewing separately obtained history, performing a medically appropriate examination, counseling and educating the patient/family/caregiver, and ordering medications, tests, or procedures. Suzan Driver, UMANG.INTENSIVE CARE UNIT NURSE Headache Section [facility] 04-14-2023 Note HNO ID: [id number] Author: INOCENCIO NAIR RN Service: ? Author Type: Registered Nurse Type: Progress Notes Filed: 04/14/2023 11:51 Note Text: Pt in for 3rd day of infusion. Pt rated headache 6/10. Pt has severe nausea and moderate dizziness. Educated pt on medications to be administered. Pt agreed to proceed as ordered. Patient has city route driver today. @0915: Patient tearful and c/o PIV site burning and very painful. No infiltration or redness of site noted, Ice-pack placed over PIV site. After a few minutes pt reported the ice-pack did not help and wanted PIV to be removed. PIV site removed. Patient remained very anxious and tearful, and requesting if anything else can be given for anxiety. [facility] COMM[facility]ICATION TECHNICIAN notified. New PIV site started, 2nd dose of Benadryl given for anxiety. 2nd line: Compazine given for severe nausea. Per [facility] COMMUNICATION TECHNICIAN to hold Periactin today as the two doses of Benadryl and Compazine can cause drowsiness. Pts infusion complete, tolerated infusion. Headache 4/10. Pt stated no nausea and moderate dizziness. PIV site removed. Pt discharged from txt room at 1124 via wheelchair to ride in [place]. [facility] 04-14-2023 History of Present illness Narrative Pt in for 3rd day of infusion. Pt rated headache 6/10. Pt has severe nausea and moderate dizziness. Educated pt on medications to be administered. Pt agreed to proceed as ordered. Patient has city route driver today. @0915: Patient tearful and c/o PIV site burning and very painful. No infiltration or redness of site noted, Ice-pack placed over PIV site. After a few minutes pt reported the ice-pack did not help and wanted PIV to be removed. PIV site removed. Patient remained very anxious and tearful, and requesting if anything else can be given for anxiety. [facility] COMMUNICATION TECHNICIAN notified. New PIV site started, 2nd dose of Benadryl given for anxiety. 2nd line: Compazine given for severe nausea. Per [facility] COMMUNICATION TECHNICIAN to hold Periactin today as the two doses of Benadryl and Compazine can cause drowsiness. Pts infusion complete, tolerated infusion. Headache 4/10. Pt stated no nausea and moderate dizziness. PIV site removed. Pt discharged from txt room at 1124 via wheelchair to ride in [place]. documented in this encounter [facility] 04-13-2023 Note HNO ID: [id number] Author: GETACHEW CANCINO RN Service: ? Author Type: Registered [...] She is working with a psychiatrist in [place] . Voiced stress is her biggest trigger for headaches. 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 I mentioned to patient our reboot program . Patient very interested to learn about it. Message send to our retread builder and Rhina Lim to set up patient for evaluation. 1020 Patient sleeping on and off. Nausea subsiding. Patient declined Zofran. Stated Zofran ineffective. 1050 Infusion complete. Patient slept on and off. Nausea resolved. PINEDA 6/10. Patient verbal , appears sedated . D/c via wheel chair to her in [place]. [facility] 04-13-2023 History of Present illness Narrative Pt in for second day [...] She is working with a psychiatrist in [place] . Voiced stress is her biggest trigger for headaches. 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 I mentioned to patient our reboot program . Patient very interested to learn about it. Message send to our retread builder and Rhina Lim to set up patient for evaluation. 1020 Patient sleeping on and off. Nausea subsiding. Patient declined Zofran. Stated Zofran ineffective. 1050 Infusion complete. Patient slept on and off. Nausea resolved. PINEDA 6/10. Patient verbal , appears sedated . D/c via wheel chair to her in [place]. documented in this encounter [facility] 04-13-2023 Miscellaneous Notes Patient is currently receiving infusions for headache. She is interested in learning about reboot program. Please schedule for evaluation. Getachew Cancino RN documented in this encounter [facility] 04-12-2023 History of Present illness Narrative Images from the original note were not included. 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 Short and student counsellor memory, cognition and general fund of knowledge [...] and cannot receive depakote d/t interaction. Plan: April Nicholson is a 27 year old year old female, following up today for day 1 of infusions. proceed with non-dhe infusions Level of service: Est level 3 (20-29 min). Time spent 25 min on the day of service, which included preparing to see the patient, [id number]-[id number] patient care, completing clinical documentation, obtaining and/or reviewing separately obtained history, performing a medically appropriate examination, counseling and educating the patient/family/caregiver, and ordering medications, tests, or procedures. Suzan Driver APRN.CNP Headache Section [facility] documented in this encounter [facility] 04-12-2023 Note HNO ID: [id number] Author: SUZAN DRIVER APRN.CNP Service: ? 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 Short and student counsellor memory, cognition and general fund of knowledge [...] and cannot receive depakote d/t interaction. Plan: April Nicholson is a 27 year old year old female, following up today for day 1 of infusions. proceed with non-dhe infusions Level of service: Est level 3 (20-29 min). Time spent 25 min on the day of service, which included preparing to see the patient, [id number] patient care, completing clinical documentation, obtaining and/or reviewing separately obtained history, performing a medically appropriate examination, counseling and educating the patient/family/caregiver, and ordering medications, tests, or procedures. Suzan Driver APRN.INTENSIVE CARE UNIT NURSE Headache Section [facility] 04-12-2023 Note HNO ID: [id number] Author: SUZAN JEFF RN Service: ? Author [...] vs oral periactin for sedation. Rhina Driver COMMUNICATION TECHNICIAN updated and agreeable. PIV started on 3rd [...] dizziness. Pt discharged from treatment room with city route driver via wheelchair due to effects from oral medications. [facility] 04-12-2023 History of Present illness Narrative 1105 Patient in for first day of IV infusions. Patient rated headache 8/10. Patient stated severe nausea and mild dizziness. Patient educated on medications to be administered. Patient verbalized understanding and agreed to proceed with infusions. Patient requested the PRN IV Benadryl vs oral periactin for sedation. Rhina Driver COMMUNICATION TECHNICIAN updated and agreeable. PIV started on 3rd [...] dizziness. Pt discharged from treatment room with city route driver via wheelchair due to effects from oral medications. documented in this encounter [facility] 04-12-2023 Instructions Suzan Driver APRN.[facility] - 04/12/2023 11:52 AM EST General Headache [...] much light. These can be obtained at [employer] or [employer]: see list below. 2. Limit use of acute treatments (czgc-ump-pnqpixo medications, triptans, etc.) to no more than [...] and quiet environment. Relax and reduce stress. Monezhv6Ohtbd is a free jua na that can instruct you on some simple relaxtion and breathing techniques. Http://Nubisio is a free website that provides teaching videos on relaxation. Also, there are many apps that can be downloaded for mindful relaxation. An juan a called YOGA NIDRA will help walk you [...] ensuing treatment plans will be released via [employer] and discussed during your follow-up appointment. Follow-up appointments are primarily provided by the Nurse Practitioners and Physician s Assistants in order to provide timely, accessible care. Student Designedhart: Please ask the schedulers to give you an activation code. The main way of communication is by Viamediat rather than phone lines, so if you have not signed up, please do so. Gal[employer] is also the way that you can review your labs and testing. We are not able to contact everyone to tell them results are normal. If you do not hear back from us regarding testing you have had, it should be considered normal or within normal range. If you have any questions about the results, you are free to message us. [employer] is meant for simple questions regarding medications, possible side effects, or other simple straight forward questions in limited sentences, rather than multiple paragraphs of discussion. [employer] is not meant for, or efficient for these complex questions, extensive questions, extensive medication adjustments, complex new symptoms or concerns. These issues beyond simple questions require a follow up visit with myself, one of our physician assistants, nurse practitioners, or a Virtual Visit via computer or smart phone, as detailed further down. Please contact [employer] if you are having issues with [employer] or logging in to your virtual visit appointment. You can reach them at [phone] Refills: Please pay attention to when your [...] pepperoni, Pickled reynoso Pods of broad carmona (Ivorian beans, Tajik pea pods, Maltese (jc) beans, frazier and navy beans Ripe [...] convincingly provoke headaches. documented in this encounter [facility] 04-03-2023 Miscellaneous Notes Ambulatory Pharmacy Prior Authorization Note Provider Intervention Required?: No- Pharmacy completed on your behalf. Rx Plan: Medicaid [facility] ([place]) Drug: Aimovig 70MG/ML auto-injectors Cover My Meds Chong: [id number] Determination: Approved Prior Authorization/Case #: n/a Prior [...] questions relating to this submission, please contact [facility] at [phone] [facility] received prescription(s) for Aimovig 70MG/ML auto-injectors . Benefits investigation was conducted, indicating that a prior authorization is required. PA was initiated and pending review through [employer]. All pertinent clinical information was submitted to insurance. CM Chong: [id number] Ordering Provider: Sagar Barth APRN.Angely Schaefer RN [facility] P: , F: documented in this encounter [facility] 03-23-2023 Note HNO ID: [id number] Author: SAGAR BARTH APRN.FADY Service: ? Author Type: Nurse [...] visit. Either the patient or their legal u.s. representative has been informed of the risks [...] and with status migrainosus (primary encounter diagnosis) April Nicholson is a 27 year old year old female, with a history of asthma, anxiety, depression, PCOS, occipital neuralgia, psychogenic nonepileptic seizures and migraine following up today virtually to discuss infusion therapy. PLAN: Therapy plan placed: NON-DHE Home meds to hold (triptan/muscle relaxer/OTC/NSAIDs): toradol, norflex Interval Headache History: Pt logged in 16 minutes late for visit and was accommodated. April Nicholson is a 27 year old year [...] XL, Qudexy) Anti-Depressant and Antipsychotic Amitriptyline (Elavil) [place] (Eskalith, Lithobid) Nortriptyline (Pamelor, Aventyl) Anti-Migraine Dihydroergotamine [...] ZOLMitriptan (ZOMIG) 5 mg nasal sprayUse 1 [place] in the nose as needed at onset [...] driving and would call back to schedule Sagar Barth APRN.INTENSIVE CARE UNIT NURSE P Headache Infusion Scheduling Pool; P C21 Botox Pool Pls schedule for infusions, and also her next botox treatment - thank you. KG documented in this encounter [facility] 12-13-2022 Miscellaneous Notes PA submitted through CoverMeds for Orphenadrine Citrate ER 100mg. Chong Code: [id number] documented in this encounter [facility] 12-09-2022 Miscellaneous Notes Patient would also [...] Name: Emory Reilly documented in this encounter [facility] 11-11-2022 History of Present illness Narrative April Nicholson in for day 1 of PINEDA [...] d/c since symptoms have resolved. Suzan Driver APRN.INTENSIVE CARE UNIT NURSE 0824: Patient in for first day of IV infusions. Patient rated headache 8/10. Patient stated severe nausea and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 organisms- Primary Mixed bipolar I disorder ([facility]) Bipolar I disorder, most recent episode (or current) mixed, unspecified Mild persistent asthma without complication ([facility]/H[facility])- Primary Class 3 severe obesity due to excess calories without serious comorbidity with body mass index (BMI) of 50.0 to 59.9 in adult ([facility]) Fatigue, unspecified type Mixed bipolar I disorder ([facility]) Bipolar I disorder, most recent episode (or current) mixed, unspecified Chronic migraine without aura without status migrainosus, not intractable ([facility]) Pain, dental Mild persistent asthma with (acute) exacerbation ([facility])- Primary Generalized edema Edema SOB (shortness of breath) on exertion Shortness of breath Generalized abdominal pain- Primary Abdominal pain, generalized Intractable nausea and vomiting Mild persistent asthma with (acute) exacerbation ([facility]) Pelvic pain in female Unspecified symptom associated with female genital organs Complex ovarian cyst documented in this encounter [facility]* Diagnosis Acute right flank pain- Primary Mild persistent asthma without complication ([facility]) Morbid obesity ([facility]) Morbid obesity Body mass index [BMI] 45.0-49.9, adult (Z68.42) Acute bronchitis due to other specified organisms- Primary Mild persistent asthma with (acute) exacerbation ([facility]) Acute bronchitis due to other specified organisms- Primary Mixed bipolar I disorder ([facility]) Bipolar I disorder, most recent episode (or current) mixed, unspecified Mild persistent asthma without complication ([facility])- Primary Class 3 severe obesity due to excess calories without serious comorbidity with body mass index (BMI) of 50.0 to 59.9 in adult ([facility]) Fatigue, unspecified type Mixed bipolar I disorder ([facility]) Bipolar I disorder, most recent episode (or current) mixed, unspecified Chronic migraine without aura without status migrainosus, not intractable ([facility]) Pain, dental Mild persistent asthma with (acute) exacerbation ([facility])- Primary Generalized edema Edema SOB (shortness of breath) on exertion Shortness of breath Generalized abdominal pain- Primary Abdominal pain, generalized Intractable nausea and vomiting Mild persistent asthma with (acute) exacerbation ([facility]) Cyst of right ovary Other and unspecified ovarian cyst Pelvic pain in female Unspecified symptom associated with female genital organs Pelvic peritoneal adhesions, female Pelvic peritoneal adhesions, female (postoperative) (postinfection) documented in this encounter [facility]* Diagnosis Bilateral ovarian cysts- Primary Other and unspecified ovarian cyst Preop testing Unspecified pre-operative examination documented [facility] encounter [facility]* Diagnosis Bilateral ovarian cysts- Primary Other and unspecified ovarian cyst Moderate asthma with acute exacerbation, unspecified whether persistent Encounter for preoperative pulmonary examination documented in this encounter [facility]* Diagnosis Acute cough [R05.1]- Primary documented in this encounter [facility]* Diagnosis Intractable chronic migraine without aura and without status migrainosus- Primary Chronic migraine without aura, with intractable migraine, so stated, without mention of status migrainosus [facility] Diagnosis Asthma, unspecified asthma severity, unspecified whether complicated, unspecified whether persistent- Primary Bilateral ovarian cysts Other and unspecified ovarian cyst Moderate asthma with acute exacerbation, unspecified whether persistent Encounter for preoperative pulmonary examination Pulmonary nodule Other diseases of lung, not elsewhere classified Gastroesophageal reflux disease, unspecified whether esophagitis present [facility] Diagnosis Cyst of right ovary- Primary Other and unspecified ovarian cyst documented in this encounter [facility]* Diagnosis Preop testing- Primary Unspecified pre-operative examination Bilateral ovarian cysts Other and unspecified ovarian cyst documented in this encounter [facility]* Diagnosis S/P bilateral salpingo-oophorectomy Acquired absence of organ, genital organs documented in this encounter [facility]* Diagnosis Post-op pain- Primary Other acute postoperative pain documented in this encounter [facility]* Diagnosis Acute right flank [...] Mild persistent asthma with (acute) exacerbation (CMS/HCC) Visit for wound check Yeast infection [facility] Diagnosis Abdominal wall cellulitis- Primary Postoperative surgical complication involving genitourinary system associated with genitourinary procedure, unspecified complication Postoperative surgical complication involving genitourinary system associated with genitourinary procedure documented in this encounter [facility]* Diagnosis Acute right flank [...] Mild persistent asthma with (acute) exacerbation (CMS/HCC) Well woman exam with routine gynecological exam Routine gynecological examination [facility]* Diagnosis Postoperative surgical complication involving genitourinary system associated with genitourinary procedure, unspecified complication- Primary Post-op pain Other acute postoperative pain Sweating profusely Generalized hyperhidrosis Menopausal symptoms Symptomatic menopausal or female climacteric states Nausea and vomiting, unspecified vomiting type [facility] Discharge instructionsNot on filedocumented in this encounter[facility] System[facility]ructionsNot on filedocumented in this encounterPro[facility] SystemInstructionsNot on filedocumented in this encounterProMedica Health SystemInstructionsNot on filedocumented in this encounterPro[facility] SystemInstructionsNot on filedocumented in this encounterPro[facility] SystemInstructionsNot on filedocumented in this encounterPro[facility]ica [facility] SystemInstructionsNot on filedocumented in this encounterProMedica [facility] SystemInstructionsNot on filedocumented in this encounterProMedica Health SystemInstructionsNot on filedocumented in this encounterProMedica Health SystemInstructionsNot on filedocumented in this encounterProNew[facility] SystemInstructionsNot on filedocumented in this encounterProMer[facility] (narrative)* Outpatient Procedure (Routine) - Pending Review Specialty Diagnoses / Procedures Referred By Sushma t Referred To [facility] Diagnoses Seizure-like activity (HCC) Procedures EPIL EEG LEAD PLACEMENT EEG EXTENDED MONITORING 61-119 MINUTES ELECTROENCEPHALOGRAM REC COMA/SLEEP ONLY Geri Madera APRN.CNP [id number] [place] [address] Referral ID Status Reason Start Date Expiration Date Visits Requested Visits Authorized [id number] Pending Review Auto-Generat ed Referral 10/26/2021 10/26/2022 1 1 [facility] for referral (narrative)* Outpatient Procedure (Routine) - Pending Review Specialty Diagnoses / Procedures Referred By Sushma t Referred To [facility] Diagnoses Psychogenic nonepileptic seizure Spells of trembling Procedures EPIL AMBULATORY EEG EEG COMPLETE STD PHYS/QHP&GT;84 HR W/O Tyrone Diaz MD, PhD [address] [address] [place] [address] Referral ID Status Reason Start Date Expiration Date Visits Requested Visits Authorized [id number] Pending Review Auto-Generat ed Referral 10/29/2021 10/29/2022 1 1 * Outpatient Procedure (Routine) - Pending Review Specialty Diagnoses / Procedures Referred By Sushma t Referred To [facility] Diagnoses Psychogenic nonepileptic seizure Spells of trembling Procedures EPIL AMBULATORY EEG EEG COMPLETE STD PHYS/QHP&GT;84 HR W/O Tyrone Diaz MD, PhD [address] [address] [place] [address] Referral ID Status Reason Start Date Expiration Date Visits Requested Visits Authorized [id number] Pending Review Auto-Generat ed Referral 10/29/2021 10/29/2022 1 1 * Consult, Test, Treat (Routine) - Authorized Specialty Diagnoses / Procedures Referred By Contac t Referred To Contact Diagnoses Chronic intractable headache, unspecified headache type Procedures CONSULT TO HEADACHE CLINIC OFFICE/OUTPATIENT [facility] MDM 60-74 MINUTES Tyrone Dolan MD, PhD [address] [place] [address] Referral ID Status Reason Start Date Expiration Date Visits Requested Visits Authorized [id number] Authorized PCP Requested Referral 10/29/2021 10/29/2022 1 1 [facility] for referral (narrative)* Outpatient Procedure (Routine) - Pending Review Specialty Diagnoses / Procedures Referred By Contac t Referred [facility] Diagnoses Seizure-like activity (HCC) Procedures EPIL EEG ROUTINE ELECTROENCEPHALOGRAM REC COMA/SLEEP ONLY Nelly Saldaña PA-C [address] [place] [address] [place] [address] Referral ID Status Reason Start Date Expiration Date Visits Requested Visits Authorized [id number] Pending Review Auto-Generat ed Referral 11/08/2021 11/08/2022 1 1 [facility] for referral (narrative)* Misc (Routine) - Pending Review Specialty Diagnoses / Procedures Referred By Contac t Referred To Contact Procedures Discharge Follow-Up George Michelle MD [address] [facility], [address] [place] [id number] Phone: tel: fax: Referral ID Status Reason Start Date Expiration Date V isits Requested Visits Authorized [id number] Pending Review 04/10/2024 04/10/2025 1 1 * Misc (Routine) - Pending Review Specialty Diagnoses / Procedures Referred By Contac t Referred To Contact Procedures Hygiene George [facility] [address] [facility], [facility] [place] [address] Phone: tel: fax: Referral ID Status Reason Start Date Expiration Date V isits Requested Visits Authorized [id number] Pending Review 04/10/2024 04/10/2025 1 1 [facility] Advance Directives Documents on File Type Date Recorded Patient Rehabilitation Services Aide Expl anation ACP-Advance Directive ACP-Power of Lathe Operator Latest Code Status on File Code Status Date Activated Date Inactivated Comments Full Code 10/19/2021 12:27 PM Full Code 10/19/2021 12:23 PM 10/19/2021 12:27 PM Date Activated Date Inactivated Comments 03/28/2024 2:56 PM 03/28/2024 8:49 PM Date Activated Date Inactivated Comments 03/28/2024 [...] veloz Referred To Contact Jesse Borrego MD [address] [place] [address] Referral ID Status Reason Start Date Expiration Date Visits Re quested Visits Authorized [id number] Closed 1 1 Specialty Diagnoses / Procedures Referred By Contac t Referred To Contact Diagnoses Intractable chronic migraine without aura and with status migrainosus Intractable chronic migraine without aura and without status migrainosus Procedures PROVIDER ORDERED FOLLOW UP OFFICE/OUTPATIENT NEW HIGH MDM 60 MINUTES Suzan Driver APRN.INTENSIVE CARE UNIT NURSE [address] [id number] Referral ID Status Reason Start Date Expiration Date Visits Requested Visits Authorized [id number] Authorized PCP Requested Referral 07/13/2023 04/13/2024 1 1 Specialty Diagnoses / Procedures Referred By Contac t Referred To Contact Diagnoses Intractable chronic migraine without aura and without status migrainosus Procedures PROVIDER ORDERED FOLLOW UP OFFICE/OUTPATIENT NEW HIGH MDM 60 MINUTES Sagar Barth APRN.INTENSIVE CARE UNIT NURSE [address] [id number] Referral ID Status Reason Start Date Expiration Date Visits Requested Visits Authorized [id number] Authorized PCP Requested Referral 10/10/2023 07/09/2024 1 1 Specialty Diagnoses / Procedures Referred By Contac t Referred To Contact Sagar Barth APRN.INTENSIVE CARE UNIT NURSE [address] [phone] Referral ID Status Reason Start Date Expiration Date V isits Requested Visits Authorized [id number] Authorized 07/10/2023 09/22/2023 1 1 Specialty Diagnoses / Procedures Referred By Contac t Referred To Contact Psychology Diagnoses Psychogenic nonepileptic seizure Procedures CONSULT TO PSYCHOLOGY OFFICE/OUTPATIENT NEW HIGH [facility] 60 MINUTES Curtis Lepe PA-C [address] [place] [address] Referral ID Status Reason Start Date Expiration Date Visits Requested Visits Authorized [id number] Pending Review PCP Requested Referral 08/18/2023 08/17/2024 1 1 Additional Source Comments Source Comments (unrecognize d section and content) In the event this informatio n is protected by the Federal Confidentiality of Alcohol and Drug Abuse Patient Records regulations: The Federal rules restrict any use of the information to criminally investigate or prosecute any alcohol or drug abuse patient.[facility] the event this information is protected by the Federal Confidentiality of Alcohol and Drug Abuse Patient Records regulations: The Federal rules restrict any use of the information to criminally investigate or prosecute any alcohol or drug abuse patient.[facility] HospitalIn the event this information is protected by the Federal Confidentiality of Alcohol and Drug Abuse Patient Records regulations: The Federal rules restrict any use of the information to criminally investigate or prosecute any alcohol or drug abuse patient.[facility] HospitalIn the event this information is protected by the Federal Confidentiality of Alcohol and Drug Abuse Patient Records regulations: The Federal rules restrict any use of the information to criminally investigate or prosecute any alcohol or drug abuse patient.[facility] HospitalIn the event this information is protected by the Federal Confidentiality of Alcohol and Drug Abuse Patient Records regulations: The Federal rules restrict any use of the information to criminally investigate or prosecute any alcohol or drug abuse patient.[facility] HospitalIn the event this information is protected by the Federal Confidentiality of Alcohol and Drug Abuse Patient Records regulations: The Federal rules restrict any use of the information to criminally investigate or prosecute any alcohol or drug abuse patient.[facility] HospitalIn the event this information is protected by the Federal Confidentiality of Alcohol and Drug Abuse Patient Records regulations: The Federal rules restrict any use of the information to criminally investigate or prosecute any alcohol or drug abuse patient.[facility] HospitalIn the event this information is protected by the Federal Confidentiality of Alcohol and Drug Abuse Patient Records regulations: The Federal rules restrict any use of the information to criminally investigate or prosecute any alcohol or drug abuse patient.[facility] HospitalIn the event this information is protected by the Federal Confidentiality of Alcohol and Drug Abuse Patient Records regulations: The Federal rules restrict any use of the information to criminally investigate or prosecute any alcohol or drug abuse patient.[facility] HospitalIn the event this information is protected by the Federal Confidentiality of Alcohol and Drug Abuse Patient Records regulations: The Federal rules restrict any use of the information to criminally investigate or prosecute any alcohol or drug abuse patient.[facility] HospitalIn the event this information is protected by the Federal Confidentiality of Alcohol and Drug Abuse Patient Records regulations: The Federal rules restrict any use of the information to criminally investigate or prosecute any alcohol or drug abuse patient.[facility] HospitalIn the event this information is protected by the Federal Confidentiality of Alcohol and Drug Abuse Patient Records regulations: The Federal rules restrict any use of the information to criminally investigate or prosecute any alcohol or drug abuse patient.[facility] HospitalIn the event this information is protected by the Federal Confidentiality of Alcohol and Drug Abuse Patient Records regulations: The Federal rules restrict any use of the information to criminally investigate or prosecute any alcohol or drug abuse patient.[facility] HospitalIn the event this information is protected by the Federal Confidentiality of Alcohol and Drug Abuse Patient Records regulations: The Federal rules restrict any use of the information to criminally investigate or prosecute any alcohol or drug abuse patient.[facility] HospitalIn the event this information is protected by the Federal Confidentiality of Alcohol and Drug Abuse Patient Records regulations: The Federal rules restrict any use of the information to criminally investigate or prosecute any alcohol or drug abuse patient.[facility] HospitalIn the event this information is protected by the Federal Confidentiality of Alcohol and Drug Abuse Patient Records regulations: The Federal rules restrict any use of the information to criminally investigate or prosecute any alcohol or drug abuse patient.[facility] HospitalIn the event this information is protected by the Federal Confidentiality of Alcohol and Drug Abuse Patient Records regulations: The Federal rules restrict any use of the information to criminally investigate or prosecute any alcohol or drug abuse patient.[facility] HospitalIn the event this information is protected by the Federal Confidentiality of Alcohol and Drug Abuse Patient Records regulations: The Federal rules restrict any use of the information to criminally investigate or prosecute any alcohol or drug abuse patient.[facility] HospitalIn the event this information is protected by the Federal Confidentiality of Alcohol and Drug Abuse Patient Records regulations: The Federal rules restrict any use of the information to criminally investigate or prosecute any alcohol or drug abuse patient.[facility] HospitalIn the event this information is protected by the Federal Confidentiality of Alcohol and Drug Abuse Patient Records regulations: The Federal rules restrict any use of the information to criminally investigate or prosecute any alcohol or drug abuse patient.[facility] HospitalIn the event this information is protected by the Federal Confidentiality of Alcohol and Drug Abuse Patient Records regulations: The Federal rules restrict any use of the information to criminally investigate or prosecute any alcohol or drug abuse patient.[facility] HospitalIn the event this information is protected by the Federal Confidentiality of Alcohol and Drug Abuse Patient Records regulations: The Federal rules restrict any use of the information to criminally investigate or prosecute any alcohol or drug abuse patient.[facility] HospitalIn the event this information is protected by the Federal Confidentiality of Alcohol and Drug Abuse Patient Records regulations: The Federal rules restrict any use of the information to criminally investigate or prosecute any alcohol or drug abuse patient.[facility] HospitalIn the event this information is protected by the Federal Confidentiality of Alcohol and Drug Abuse Patient Records regulations: The Federal rules restrict any use of the information to criminally investigate or prosecute any alcohol or drug abuse patient.[facility] HospitalIn the event this information is protected by the Federal Confidentiality of Alcohol and Drug Abuse Patient Records regulations: The Federal rules restrict any use of the information to criminally investigate or prosecute any alcohol or drug abuse patient.[facility] HospitalIn the event this information is protected by the Federal Confidentiality of Alcohol and Drug Abuse Patient Records regulations: The Federal rules restrict any use of the information to criminally investigate or prosecute any alcohol or drug abuse patient.[facility] HospitalIn the event this information is protected by the Federal Confidentiality of Alcohol and Drug Abuse Patient Records regulations: The Federal rules restrict any use of the information to criminally investigate or prosecute any alcohol or drug abuse patient.[facility] HospitalIn the event this information is protected by the Federal Confidentiality of Alcohol and Drug Abuse Patient Records regulations: The Federal rules restrict any use of the information to criminally investigate or prosecute any alcohol or drug abuse patient.[facility] HospitalIn the event this information is protected by the Federal Confidentiality of Alcohol and Drug Abuse Patient Records regulations: The Federal rules restrict any use of the information to criminally investigate or prosecute any alcohol or drug abuse patient.[facility] HospitalIn the event this information is protected by the Federal Confidentiality of Alcohol and Drug Abuse Patient Records regulations: The Federal rules restrict any use of the information to criminally investigate or prosecute any alcohol or drug abuse patient.[facility] HospitalIn the event this information is protected by the Federal Confidentiality of Alcohol and Drug Abuse Patient Records regulations: The Federal rules restrict any use of the information to criminally investigate or prosecute any alcohol or drug abuse patient.[facility] HospitalIn the event this information is protected by the Federal Confidentiality of Alcohol and Drug Abuse Patient Records regulations: The Federal rules restrict any use of the information to criminally investigate or prosecute any alcohol or drug abuse patient.[facility] HospitalIn the event this information is protected by the Federal Confidentiality of Alcohol and Drug Abuse Patient Records regulations: The Federal rules restrict any use of the information to criminally investigate or prosecute any alcohol or drug abuse patient.[facility] HospitalIn the event this information is protected by the Federal Confidentiality of Alcohol and Drug Abuse Patient Records regulations: The Federal rules restrict any use of the information to criminally investigate or prosecute any alcohol or drug abuse patient.[facility] HospitalIn the event this information is protected by the Federal Confidentiality of Alcohol and Drug Abuse Patient Records regulations: The Federal rules restrict any use of the information to criminally investigate or prosecute any alcohol or drug abuse patient.[facility] HospitalIn the event this information is protected by the Federal Confidentiality of Alcohol and Drug Abuse Patient Records regulations: The Federal rules restrict any use of the information to criminally investigate or prosecute any alcohol or drug abuse patient.[facility] HospitalIn the event this information is protected by the Federal Confidentiality of Alcohol and Drug Abuse Patient Records regulations: The Federal rules restrict any use of the information to criminally investigate or prosecute any alcohol or drug abuse patient.[facility] HospitalIn the event this information is protected by the Federal Confidentiality of Alcohol and Drug Abuse Patient Records regulations: The Federal rules restrict any use of the information to criminally investigate or prosecute any alcohol or drug abuse patient.[facility] HospitalIn the event this information is protected by the Federal Confidentiality of Alcohol and Drug Abuse Patient Records regulations: The Federal rules restrict any use of the information to criminally investigate or prosecute any alcohol or drug abuse patient.[facility] HospitalIn the event this information is protected by the Federal Confidentiality of Alcohol and Drug Abuse Patient Records regulations: The Federal rules restrict any use of the information to criminally investigate or prosecute any alcohol or drug abuse patient.[facility] HospitalIn the event this information is protected by the Federal Confidentiality of Alcohol and Drug Abuse Patient Records regulations: The Federal rules restrict any use of the information to criminally investigate or prosecute any alcohol or drug abuse patient.[facility] HospitalIn the event this information is protected by the Federal Confidentiality of Alcohol and Drug Abuse Patient Records regulations: The Federal rules restrict any use of the information to criminally investigate or prosecute any alcohol or drug abuse patient.[facility] HospitalIn the event this information is protected by the Federal Confidentiality of Alcohol and Drug Abuse Patient Records regulations: The Federal rules restrict any use of the information to criminally investigate or prosecute any alcohol or drug abuse patient.[facility] HospitalIn the event this information is protected by the Federal Confidentiality of Alcohol and Drug Abuse Patient Records regulations: The Federal rules restrict any use of the information to criminally investigate or prosecute any alcohol or drug abuse patient.[facility] HospitalIn the event this information is protected by the Federal Confidentiality of Alcohol and Drug Abuse Patient Records regulations: The Federal rules restrict any use of the information to criminally investigate or prosecute any alcohol or drug abuse patient.[facility] HospitalIn the event this information is protected by the Federal Confidentiality of Alcohol and Drug Abuse Patient Records regulations: The Federal rules restrict any use of the information to criminally investigate or prosecute any alcohol or drug abuse patient.[facility] HospitalIn the event this information is protected by the Federal Confidentiality of Alcohol and Drug Abuse Patient Records regulations: The Federal rules restrict any use of the information to criminally investigate or prosecute any alcohol or drug abuse patient.[facility] HospitalIn the event this information is protected by the Federal Confidentiality of Alcohol and Drug Abuse Patient Records regulations: The Federal rules restrict any use of the information to criminally investigate or prosecute any alcohol or drug abuse patient.[facility] HospitalIn the event this information is protected by the Federal Confidentiality of Alcohol and Drug Abuse Patient Records regulations: The Federal rules restrict any use of the information to criminally investigate or prosecute any alcohol or drug abuse patient.[facility] HospitalIn the event this information is protected by the Federal Confidentiality of Alcohol and Drug Abuse Patient Records regulations: The Federal rules restrict any use of the information to criminally investigate or prosecute any alcohol or drug abuse patient.[facility] HospitalIn the event this information is protected by the Federal Confidentiality of Alcohol and Drug Abuse Patient Records regulations: The Federal rules restrict any use of the information to criminally investigate or prosecute any alcohol or drug abuse patient.[facility] HospitalIn the event this information is protected by the Federal Confidentiality of Alcohol and Drug Abuse Patient Records regulations: The Federal rules restrict any use of the information to criminally investigate or prosecute any alcohol or drug abuse patient.[facility] HospitalIn the event this information is protected by the Federal Confidentiality of Alcohol and Drug Abuse Patient Records regulations: The Federal rules restrict any use of the information to criminally investigate or prosecute any alcohol or drug abuse patient.[facility] HospitalIn the event this information is protected by the Federal Confidentiality of Alcohol and Drug Abuse Patient Records regulations: The Federal rules restrict any use of the information to criminally investigate or prosecute any alcohol or drug abuse patient.[facility] HospitalIn the event this information is protected by the Federal Confidentiality of Alcohol and Drug Abuse Patient Records regulations: The Federal rules restrict any use of the information to criminally investigate or prosecute any alcohol or drug abuse patient.[facility] Reason for Visit (unrecogniz ed section and content) Reason Comments Infusion Headache Specialty Diagnoses / Procedures Referred By Contac t Referred To Contact Neurology / HEADACHE Diagnoses NON-DHE #1 Procedures INFUSION HEADACHE Suzan Driver APRN.INTENSIVE CARE UNIT NURSE [address] [id number] Neur Headache Main [address] [phone] Referral ID Status Reason Start Date Expiration Date V isits Requested Visits Authorized [id number] Authorized 04/12/2023 02/20/2024 99 99 Reason Comments Migraine Specialty Diagnoses / Procedures Referred By Contac t Referred To Contact Diagnoses Intractable chronic migraine without aura and without status migrainosus Procedures PROVIDER ORDERED FOLLOW UP OFFICE/OUTPATIENT [facility] 60 MINUTES Sagar Barth, UMANG.INTENSIVE CARE UNIT NURSE [address] [id number] Referral ID Status Reason Start Date Expiration Date V isits Requested Visits Authorized [id number] Closed PCP Requested Referral 10/10/2023 07/09/2024 1 1 Specialty Diagnoses / Procedures Referred By Contac t Referred To Contact Diagnoses Intractable chronic migraine without aura and without status migrainosus Procedures INJECTION, EPTINEZUMAB-JJMR, 1 MG Sagar Barth APRN.INTENSIVE CARE UNIT NURSE [address] [id number] Neur Headache Main [address] [phone] Referral ID Status Reason Start Date Expiration Date V isits Requested Visits Authorized [id number] Authorized 09/20/2023 03/22/2024 2 2 Reason Comments Nerve Block Specialty Diagnoses / Procedures Referred By Contac t Referred To Contact Neurology / HEADACHE Diagnoses NON-DHE #1 Procedures INFUSION HEADACHE Suzan Driver APRN.INTENSIVE CARE UNIT NURSE [address] [place] [address] Neur Headache Main [address] [phone] Reason Comments Headache Infusion Reason Comments Future Appointment [place], [place], Any Reason Comments Migraine seen at [facility] yest erday for Migrane and D & C for miscarrage Reason Comments New Patient Reason Comments Orders Reason Comments Seizures Follow Up Reason Comments Migraine x 2 week lasts up to 4 days light sensitivity, sees silver dots looks like stars. Goes into convulsions during migraines. No meds for migraines has ever worked. Reason Comments Appointment infusion Specialty Diagnoses / Procedures [facility] Neu[facility] / HEADACHE Diagnoses DHE Procedures INFUSION HEADACHE Abdiftaah Brady MD [address] [place] [address] Neur Headache Main [address] [place] [address] Referral ID Status Reason Start Date Expiration Date Visits Re quested Visits Authorized [id number] Closed 07/28/2022 09/26/2022 1 1 Reason Comments Chronic Migraine Reason Comments Chronic Migraine Reason Comments Insurance Authorization Zomig 5MG nasal spray Reason Comments Infusion Specialty Diagnoses / Procedures Referred By Contac t Referred To Contact Neurology / HEADACHE Diagnoses POSSIBLE DHE/WAITING FOR ORDERS Procedures INFUSION HEADACHE Self Neur Headache Main [address] [place] [address] Referral ID Status Reason Start Date Expiration Date V isits Requested Visits Authorized [id number] Authorized 11/10/2022 02/08/2023 1 99 Reason Onset [...] Headache Specialty Diagnoses / Procedures Referred By [facility] Referred To Contact Neurology / HEADACHE Diagnoses Chronic migraine without aura, intractable, without status migrainosus Migraines Nerve Block Procedures INJECTION AA&/STRD GREATER OCCIPITAL NERVE NERVE BLOCK Sagar Barth, UMANG.INTENSIVE CARE UNIT NURSE [address] [phone] Tyrone Dolan MD, PhD [address] [facility] [address] [phone] Referral ID Status Reason Start Date Expiration Date Visits Re quested Visits Authorized [id number] Closed 08/28/2023 02/20/2024 1 1 Reason Onset Date Comments Refill Request 11/10/2023 Specialty Diagnoses / Procedures Referred By [facility] Referred To Contact Diagnoses Intractable chronic migraine without aura and without status migrainosus Procedures INJECTION, EPTINEZUMAB-JJMR, 1 MG Sagar Barth, UMANG.INTENSIVE CARE UNIT NURSE [address] [place] [address] Neur Headache Main [address] [phone] Reason Comments Fatigue Dizzy, shaky, very t [...] denies Specialty Diagnoses / Procedures Referred By [facility] Referred To Contact Pulmonary Medicine Diagnoses Bilateral ovarian cysts Moderate asthma with acute exacerbation, unspecified whether persistent Encounter for preoperative pulmonary examination Mundo Martinez MD [address] [place] [address] Phone: tel: fax: Jefry Hills MD [address], [address] [address] Phone: tel: fax: Referral ID Status Reason Start Date Expiration Date Visits Requested Visits Authorized [id number] Pending Review Specialty Services Required 03/20/2024 03/20/2025 1 1 Reason Comments Wound Check Reason Comments Flu Symptoms Abdominal Pain Specialty Diagnoses / Procedures Referred By Sushma veloz Referred To Contact Diagnoses Sepsis ([facility]) Abdominal wall cellulitis [facility] - Emergency Department [address] [place] [address] Phone: tel: fax: Referral ID Status Reason Start Date Expiration Date Visits Re quested Visits Authorized [id number] 1 1 Reason Comments Well Women Visit Reason Comments Post-op 2 week post-op Scheduled Active and Recently Administ ered Medications [...] 1831 (Given - Provider: Adrienne Stephens RN) 08 (Given - Provider: Clementine Cm, PRATIBHA) lamoTRIgine [...] off 833 (Patch Applied - Provider: Clementine Cm, PRATIBHA)2033 (Due: Patch Removed - Provider: Clementine Cm [...] 1740 (New Bag - Provider: Adrienne Stephens, RN) 0714 (Stopped - Provider: Yun Neal [...] 24 hours. 1832 (Given - Provider: Adrienne tSephens RN) gadoteridol (PROHANCE) injection 20 mL (COMPLETED) 20 mL, IntraVENous, IMG ONCE PRN, 1 dose, Starting on Mon10/19/21 at 1552, Until Mon10/19/21 at 1552, Other 1552 (Given - Provider: Dinorah Cruz) loperamide (IMODIUM) capsule 2 mg 2 mg, Oral, 4 TIMES DAILY PRN, Starting on Mon10/20/21 at 1046, Until Discontinued, Diarrhea, After each loose stool. 1215 (Given - Provid er: Clementine Cm, PRATIBHA) ondansetron (ZOFRAN) injection 4 mg(Linked Group 2) [...]
Administer if oral route cannot be used.
Scheduled Medication Order 04/08/2024 04/09/2024 04/10/2024 amoxicillin-pot clavulanate (AUGMENTIN) 875-125 mg per tablet 1 tablet 1 tablet, oral, Every 8 hours, First dose on Mon04/10/24 at 0800, For 7 days, Indication: Skin and soft tissue infection 0911 (Given - Provider: Effie Keene RN)1601 (Given - Provider: Effie Keene RN) cefTRIAXone (ROCEPHIN) 1,000 mg in sodium chloride 0.9 % 50 mL IVPB-MBP (COMPLETED) 1,000 mg, intravenous, at 100 mL/hr, Administer over 30 Minutes, Once, On Mon04/08/24 at 1450, For 1 dose, Look-alike/sound-alike medication - verify indication for use. Do not co-administer with calcium-containing solutions such as Lactated Ringers., Indication: Intra-abdominal 1603 (New Bag - Provider: Lillie Antonio RN)1633 (Stop Bag - Provider: Lillie Antonio RN) diazePAM (VALIUM) tablet 5 mg 5 mg, oral, 2 times daily, First dose on Mon04/08/24 at 2145, Look-alike/sound-alike medication - verify indication for use. Do not use solution in feeding tubes (due to absorption to plastic tubing). Tablets may be crushed and administered in tubes (except j-tube) 2218 (Given - Provider: Lo Peres RN) 1018 (Given - Provider: Fredi Lowe RN)2136 (Given - Provider: Corby Bojorquez RN) 0828 (Given - Provider: Effie Keene RN) diphenhydrAMINE (BENADRYL) injection 12.5 mg (COMPLETED) 12.5 mg, intravenous, Once, On Mon04/09/24 at 1100, For 1 dose, Look-alike/sound-alike medication - verify indication for use. 1159 (Given - Provider: Fredi Lowe RN) diphenhydrAMINE (BENADRYL) injection 25 mg (COMPLETED) 25 mg, intravenous, Once, On Mon04/08/24 at 1450, For 1 dose, Look-alike/sound-alike medication - verify indication for use. 1558 (Given - Provider: Lillie Antonio RN) estradioL (VIVELLE-DOT) 0.0375 mg/24 hr 1 patch 1 patch, transdermal, 2 times weekly (Once per day on Monday), First dose on Mon04/09/24 at 0915, Remove previous patch, if present, before applying new. Remove for MRI. Place on trunk of body (preferably abdomen). Rotate application sites allowing a 1-week interval between applications at a particular site. 1019 (Medication Applied - Provider: Fredi Lowe RN - Comment: r abd) HYDROmorphone (DILAUDID) injection 0.5 mg (CANCELED) 0.5 mg, intravenous, Once, On Mon04/08/24 at 1805, For 1 dose, If IV push, administer over over 2 to 3 minutes. To be given prior to bedside procedure Look-alike/sound-alike medication - verify indication for use. 2031 (Given - Provider: Lo Peres RN) HYDROmorphone (DILAUDID) injection 0.5 mg (COMPLETED) 0.5 mg, intravenous, Once, On Mon04/08/24 at 2015, For 1 dose, If IV push, administer over over 2 to 3 minutes. Look-alike/sound-alike medication - verify indication for use. 2019 (Given - Provider: Lo Peres RN) HYDROmorphone (DILAUDID) injection 1 mg (COMPLETED) 1 mg, intravenous, Once, On Mon04/08/24 at 1625, For 1 dose, If IV push, administer over over 2 to 3 minutes. Look-alike/sound-alike medication - verify indication for use. 1640 (Given - Provider: Lillie Antonio RN) ketorolac (TORADOL) injection 15 mg (COMPLETED) 15 mg, intramuscular, Once, On Mon04/09/24 at 1100, For 1 dose, Look-alike/sound-alike medication - verify indication for use. Duration of therapy is not to exceed 5 days. Maximum recommended dose + 120mg/24 hours. 1159 (Given - Provider: Fredi Lowe, PRATIBHA) lamoTRIgine (LaMICtal) tablet 200 mg 200 mg, oral, 2 times daily, First dose on Mon04/08/24 at 2145, Look-alike/sound-alike medication - verify indication for use. 2218 (Given - Provider: Lo Peres RN) 1018 (Given - Provider: Fredi Lowe, PRATIBHA)2136 (Given - Provider: Corby Bojorquez RN) 0828 (Given - Provider: Effie Keene RN) lidocaine PF (XYLOCAINE) 10 mg/mL (1 %) injection 100 mg 100 mg (10 mL), infiltration, Once, On Mon04/08/24 at 1650, For 1 dose 1650 (Not Given - Provider: Lillie Garza, RN - Reason: Other - Comment: no longer needed per OBGYN) lidocaine-EPINEPHrine (XYLOCAINE W/EPI) 1 %-1:[id number] injection 30 mL (COMPLETED) 30 mL, intradermal, Once, On Mon04/08/24 at 1805, For 1 dose, Look-alike/sound-alike medication - verify indication for use. 2032 (Given - Provider: Lo Peres RN) lithium carbonate tablet 600 mg 600 mg, oral, Nightly, First dose on Mon04/08/24 at 2200, Food-Drug Interaction Education Required Look-alike/sound-alike medication - verify indication for use Maintain normal daily intakes of fluids and salt (sodium) Enteral Feeding: Mix solution with 10-30 mL water prior to administering in feeding tube 2217 (Given - Provider: Lo Peres RN) 2136 (Given - Provider: Corby Bojorquez RN) LORazepam (ATIVAN) injection 1 mg (COMPLETED) 1 mg, intravenous, Once, On Mon04/08/24 at 2014, For 1 dose, Look-alike/sound-alike medication - verify indication for use;IV use requires increased monitoring of HR,BP,Respirations and Pulse Oximetry;For IV-dilute with equal volume PF sod chloride, Indication: Sedation 2010 (Given - Provider: Lo Peres RN) metroNIDAZOLE (FLAGYL) IVPB 500 mg/100 mL in iso-osmotic sodium chloride (5 mg/mL premix) (COMPLETED) 500 mg, intravenous, at 100 mL/hr, Administer over 60 Minutes, Once, On Mon04/08/24 at 1450, For 1 dose, Look-alike/sound-alike medication - verify indication for use., Indication: Intra-abdominal 1646 (New Bag - Provider: Lillie Antonio, RN)1746 (Stop Bag - Provider: Lillie Antonio, RN) morphine injection 4 mg (COMPLETED) 4 mg, intravenous, Once, On Mon04/08/24 at 1335, For 1 dose, Look-alike/sound-alike medication - verify indication for use. 1415 (Given - Provider: Lillie Antonio, RN) ondansetron (PF) (ZOFRAN) injection 4 mg (COMPLETED) 4 mg, intravenous, Once, On Mon04/08/24 at 1335, For 1 dose, Administer over 2-5 minutes. 1416 (Given - Provider: Lillie Antonio, PRATIBHA) piperacillin-tazobactam (ZOSYN) 4.5 g in sodium chloride 0.9 % 50 mL IVPB-MBP (COMPLETED) 4.5 g, intravenous, at 100 mL/hr, Administer over 0.5 Hours, Once, On Mon04/08/24 at 1615, For 1 dose, ADD-VANTAGE/MBP- Discard 24 hours after activating; dissolve drug prior to administration 2229 (New Bag - Provider: Lo Peres RN)2259 (Stop Bag - Provider: Lo Peres RN) sodium chloride 0.9 % bolus (COMPLETED) 2,000 mL, intravenous, at 3,871 mL/hr, Administer over 31 Minutes, Once, On Mon04/08/24 at 1335, For 1 dose 1415 (New Bag - Provider: Lillie Antonio, PRATIBHA)1446 (Stop Bag - Provider: Lillie Antonio, RN) traZODone (DESYREL) tablet 300 mg 300 mg, oral, Nightly, First dose on Mon04/09/24 at 0100, Look-alike/sound-alike medication - verify indication for use. 0117 (Given - Provider: Lo Peres RN)2137 (Given - Provider: Corby Bojorquez, PRATIBHA) vancomycin (VANCOCIN) IVPB 1250 mg/250 mL in 0.9% sodium chloride (premix) (CANCELED) 1,250 mg, intravenous, at 167 mL/hr, Administer over 90 Minutes, Every 8 hours, First dose on Mon04/09/24 at 1030, VESICANT (YELLOW), Indication: Other, Specify: peritonitis 1215 (New Bag - Provider: Fredi Lowe, PRATIBHA)1345 (Stop Bag - Provider: Fredi Lowe, PRATIBHA)2133 (New Bag - Provider: Corby Bojorquez, RN)2303 (Stop Bag - Provider: Corby Bojorquez, RN) 0440 (New Bag - Provider: Corby Bojorquez, RN)0610 (Stop Bag - Provider: Corby Bojorquez, RN) vancomycin (VANCOCIN) IVPB 2000 mg/500 mL in 0.9% sodium chloride (premix) (COMPLETED) 2,000 mg (rounded from 2,140 mg = 20 mg/kg 107 kg Order-specific weight), intravenous, at 250 mL/hr, Administer over 120 Minutes, Once, On Mon04/08/24 at 1615, For 1 dose, VESICANT (YELLOW), Indication: Uncomplicated skin and soft tissue infection 1847 (New Bag - Provider: Fredi Lowe, RN)2129 (Stop Bag - Provider: Lo Peres RN) PRN Medication Order 04/08/2024 04/09/2024 04/10/2024 acetaminophen (TYLENOL EXTRA STRENGTH) tablet 1,000 mg 1,000 mg, oral, Every 6 hours PRN, mild pain - pain scale 1-3, Starting on Mon04/08/24 at 1825 HYDROmorphone (DILAUDID) injection 1 mg 1 mg, intravenous, Every 4 hours PRN, severe pain - pain scale 7-10, Starting on Mon04/08/24 at 1941, If IV push, administer over over 2 to 3 minutes. Look-alike/sound-alike medication - verify indication for use. 2045 (Given - Provider: Lo Peres RN) 001 (Given - Provider: Lo Peres RN)100 (Given - Provider: Fredi Lowe, PRATIBHA)1516 (Given - Provider: Fredi Lowe, PRATIBHA)211 (Given - Provider: Corby Bojorquez RN) ibuprofen (MOTRIN) tablet 800 mg 800 mg, oral, Every 6 hours PRN, moderate pain - pain scale 4-6, Starting on Mon04/08/24 at 1825, Look-alike/sound-alike medication - verify indication for use. Take/Give with food or milk. 0444 (Given - Provider: Corby Bojorquez RN)1129 (Given - Provider: Effie Keene RN) iohexoL (OMNIPAQUE) 300 mg iodine/mL 100 mL (COMPLETED) 100 mL, intravenous, Once in imaging, contrast, Starting on Mon04/08/24 at 1521, For 1 dose, VESICANT (RED) 1525 (Given - Provider: Lamar Carrington ARRMaryann) iohexoL (OMNIPAQUE) 300 mg iodine/mL 30 mL 30 mL, oral, Once in imaging, contrast, Starting on Mon04/08/24 at 1335, For 1 dose, VESICANT (RED) ondansetron ODT (ZOFRAN ODT) disintegrating tablet 4 mg 4 mg, oral, Every 8 hours PRN, nausea, vomiting, Starting on Mon04/08/24 at 2225 1018 (Given - Provider: Fredi Lowe RN) oxyCODONE (ROXICODONE) immediate release tablet 5 mg (CANCELED) 5 mg, oral, Every 4 hours PRN, severe pain - pain scale 7-10, Starting on Mon04/08/24 at 1825, Look-alike/sound-alike medication - verify indication for use. Immediate release. 1843 (Given - Provider: Fredi Lowe RN)2218 (Given - Provider: Lo Peres, RN) 0203 (Given - Provider: Lo Peres RN)0704 (Given - Provider: Lo Peres RN) oxyCODONE (ROXICODONE) immediate release tablet 5 mg 5 mg, oral, Every 4 hours PRN, severe pain - pain scale 7-10, Starting on Mon04/09/24 at 1549, Look-alike/sound-alike medication - verify indication for use. Immediate release. 1848 (Given - Provider: Fredi Lowe RN) 0832 (Given - Provider: Effie Keene, PRATIBHA)1502 (Given - Provider: Effie Keene RN) sodium chloride 0.9 % flush 10 mL 10 mL, intravenous, As needed, line care, Starting on Mon04/08/24 at 1521 1525 (Given - Provider: SEVERINO Pérez) sodium chloride 0.9 % radiology injection (COMPLETED) 80 mL, intravenous, Once in imaging, pre/post contrast, Starting on Mon04/08/24 at 1521, For 1 dose 1525 (Given - Provider: SEVERINO Pérez) INFORMATION SOURCE (unrecogn ized section and content) DATE CREATED AUTHOR 12/26/2020 Maggie [facility] DATE CREATED AUTHOR AUTHOR'S ORGANIZ ATION 10/25/2021 [facility] DATE CREATED AUTHOR AUTHOR'S ORGANIZ ATION 05/26/2022 [facility] DATE CREATED AUTHOR AUTHOR'S ORGANIZ ATION 08/02/2022 [facility] DATE CREATED AUTHOR AUTHOR'S ORGANIZ ATION 03/23/2024 [facility] DATE CREATED AUTHOR AUTHOR'S ORGANIZ ATION 04/16/2024 [facility] DATE CREATED AUTHOR AUTHOR'S ORGANIZ ATION 04/17/2024 [facility] EPIC Ordered Prescriptions (unrec ognized section and content) Prescription Sig Dispensed Refills Start Date End Da te lamoTRIgine (LAMICTAL) 25 MG tablet Take 2 tablets by mouth daily 30 tablet 3 10/21/2021 Care Teams (unrecognized sec tion and content) Interior Horticulturist Relationship Specialty Start Date End Date Derik Arthur, RELATIONSHIP ADVISOR - INTENSIVE CARE UNIT NURSE [address] [place] [phone] PCP - General Nurse Practitioner 12/24/20 Interior Horticulturist Relationship Specialty Start Date End Date Hoy, Abdifatah M (Historical) PCP - General 05/21/13 Interior Horticulturist Relationship Specialty Start Date End Date Hoy, Abdifatah M (Historical) PCP - General 05/21/13 Interior Horticulturist Relationship Specialty Start Date End Date Hoy, Abdifatah M (Historical) PCP - General 05/21/13 Interior Horticulturist Relationship Specialty Start Date End Date Hoy, Abdifatah M (Historical) PCP - General 05/21/13 Interior Horticulturist Relationship Specialty Start Date End Date Hoy, Abdifatah M (Historical) PCP - General 05/21/13 Interior Horticulturist Relationship Specialty Start Date End Date Hoy, Abdifatah M (Historical) PCP - General 05/21/13 Interior Horticulturist Relationship Specialty Start Date End Date Hoy, Abdifatah M (Historical) PCP - General 05/21/13 Interior Horticulturist Relationship Specialty Start Date End Date Hoy, Abdifatah M (Historical) PCP - General 05/21/13 Interior Horticulturist Relationship Specialty Start Date End Date Hoy, Abdifatah M (Historical) PCP - General 05/21/13 Interior Horticulturist Relationship Specialty Start Date End Date Hoy, Abdifatah M (Historical) PCP - General 05/21/13 Interior Horticulturist Relationship Specialty Start Date End Date Hoy, Abdifatah M (Historical) PCP - General 05/21/13 Interior Horticulturist Relationship Specialty Start Date End Date Hoy, Abdifatah M (Historical) PCP - General 05/21/13 Interior Horticulturist Relationship Specialty Start Date End Date Hoy, Abdifatah M (Historical) PCP - General 05/21/13 Interior Horticulturist Relationship Specialty Start Date End Date Hoy, Abdifatah M (Historical) PCP - General 05/21/13 Interior Horticulturist Relationship Specialty Start Date End Date Hoy, Abdifatah M (Historical) PCP - General 05/21/13 Interior Horticulturist Relationship Specialty Start Date End Date Hoy, Abdifatah M (Historical) PCP - General 05/21/13 Interior Horticulturist Relationship Specialty Start Date End Date Hoy, Abdifatah M (Historical) PCP - General 05/21/13 Interior Horticulturist Relationship Specialty Start Date End Date Hoy, Abdifatah M (Historical) PCP - General 05/21/13 Interior Horticulturist Relationship Specialty Start Date End Date Hoy, Abdifatah M (Historical) PCP - General 05/21/13 Interior Horticulturist Relationship Specialty Start Date End Date Hoy, Abdifatah M (Historical) PCP - General 05/21/13 Interior Horticulturist Relationship Specialty Start Date End Date Hoy, Abdifatah M (Historical) PCP - General 05/21/13 Interior Horticulturist Relationship Specialty Start Date End Date Hoy, Abdifatah M (Historical) PCP - General 05/21/13 Interior Horticulturist Relationship Specialty Start Date End Date Hoy, Abdifatah M (Historical) PCP - General 05/21/13 Interior Horticulturist Relationship Specialty Start Date End Date Hoy, Abdifatah M (Historical) PCP - General 05/21/13 Interior Horticulturist Relationship Specialty Start Date End Date Hoy, Abdifatah M (Historical) PCP - General 05/21/13 Interior Horticulturist Relationship Specialty Start Date End Date Hoy, Abdifatah M (Historical) PCP - General 05/21/13 Interior Horticulturist Relationship Specialty Start Date End Date Hoy, Abdifatah M (Historical) PCP - General 05/21/13 Interior Horticulturist Relationship Specialty Start Date End Date Hoy, Abdifatah M (Historical) PCP - General 05/21/13 Interior Horticulturist Relationship Specialty Start Date End Date Hoy, Abdifatah M (Historical) PCP - General 05/21/13 Interior Horticulturist Relationship Specialty Start Date End Date Hoy, Abdifatah M (Historical) PCP - General 05/21/13 Interior Horticulturist Relationship Specialty Start Date End Date Hoy, Abdifatah M (Historical) PCP - General 05/21/13 Interior Horticulturist Relationship Specialty Start Date End Date Hoy, Abdifatah M (Historical) PCP - General 05/21/13 Interior Horticulturist Relationship Specialty Start Date End Date Hoy, Abdifatah M (Historical) PCP - General 05/21/13 Interior Horticulturist Relationship Specialty Start Date End Date Abdifatah Brady (Historical) PCP - General 05/21/13 Interior Horticulturist Relationship Specialty Start Date End Date Lamont Shay MD [address] [place] [phone] PCP - General Family Medicine 03/14/23 Interior Horticulturist Relationship Specialty Start Date End Date RaulAbdifatah bean (Historical) PCP - General 05/21/13 Interior Horticulturist Relationship Specialty Start Date End Date Lamont Shay MD [address] [place] [phone] PCP - General Family Medicine 03/14/23 Interior Horticulturist Relationship Specialty Start Date End Date Lamont Shay MD [address] [place] [phone] PCP - General Family Medicine 03/14/23 Interior Horticulturist Relationship Specialty Start Date End Date Abdifatah Brady (Historical) PCP - General 05/21/13 Interior Horticulturist Relationship Specialty Start Date End Date Abdifatah Brday (Historical) PCP - General 05/21/13 Interior Horticulturist Relationship Specialty Start Date End Date Lamont Shay MD [address] [place] [phone] PCP - General Family Medicine 03/14/23 Interior Horticulturist Relationship Specialty Start Date End Date RaulAbdifatah bean (Historical) PCP - General 05/21/13 Interior Horticulturist Relationship Specialty Start Date End Date Lamont Shay MD [address] [place] [phone] PCP - General Family Medicine 03/14/23 Interior Horticulturist Relationship Specialty Start Date End Date Lamont Shay MD [address] [place] [address] PCP - General Family Medicine 03/14/23 Interior Horticulturist Relationship Specialty Start Date End Date Lamont Shay MD [address] [place] [phone] PCP - General Family Medicine 03/14/23 Interior Horticulturist Relationship Specialty Start Date End Date Lamont Shay MD [address] [place] [phone] PCP - General Family Medicine 03/14/23 Interior Horticulturist Relationship Specialty Start Date End Date Lamont Shay MD [address] [place] [phone] PCP - General Family Medicine 03/14/23 Interior Horticulturist Relationship Specialty Start Date End Date Lamont Shay MD [address] [place] [phone] PCP - General Family Medicine 03/14/23 Interior Horticulturist Relationship Specialty Start Date End Date Lamont Shay MD [address] [place] [address] PCP - General Family Medicine 03/14/23 Interior Horticulturist Relationship Specialty Start Date End Date Lamont Shay MD [address] [place] [phone] PCP - General Family Medicine 03/14/23 Interior Horticulturist Relationship Specialty Start Date End Date Lamont Shay MD [address] [place] [phone] PCP - General Family Medicine 03/14/23 Interior Horticulturist Relationship Specialty Start Date End Date Lamont Shay MD [address] [place] [address] PCP - General Family Medicine 03/14/23 Interior Horticulturist Relationship Specialty Start Date End Date Lamont Shay MD [address] [place] [address] PCP - General Family Medicine 03/14/23 Interior Horticulturist Relationship Specialty Start Date End Date Lamont Shay MD [address] [place] [address] PCP - General Family Medicine 03/14/23 Interior Horticulturist Relationship Specialty Start Date End Date Lamont Shay MD [address] [place] [address] PCP - General Family Medicine 03/14/23 Interior Horticulturist Relationship Specialty Start Date End Date Lamont Shay MD [address] [place] [address] PCP - General Family Medicine 03/14/23 Interior Horticulturist Relationship Specialty Start Date End Date Lamont Shay MD PCP - General Family Medicine 06/22/22 Interior Horticulturist Relationship Specialty Start Date End Date Lamont Shay MD PCP - General Family Medicine 06/22/22 Interior Horticulturist Relationship Specialty Start Date End Date Lamont Shay MD PCP - General Family Medicine 06/22/22 Interior Horticulturist Relationship Specialty Start Date End Date Lamont hSay MD PCP - General Family Medicine 06/22/22 Interior Horticulturist Relationship Specialty Start Date End Date Lamont Shay MD PCP - General Family Medicine 06/22/22 Interior Horticulturist Relationship Specialty Start Date End Date Lamont Shay MD PCP - General Family Medicine 06/22/22 Interior Horticulturist Relationship Specialty Start Date End Date Corine Gold MD [address] [place] [address] PCP - General Internal Medicine 03/25/24 Interior Horticulturist Relationship Specialty Start Date End Date Corine Gold MD [address] [place] [address] PCP - General Internal Medicine 03/25/24 Interior Horticulturist Relationship Specialty Start Date End Date Corine Gold MD [address] [place] [address] PCP - General Internal Medicine 03/25/24 Interior Horticulturist Relationship Specialty Start Date End Date Corine Gold MD [address] [place] [address] PCP - General Internal Medicine 03/25/24 Interior Horticulturist Relationship Specialty Start Date End Date Lamont Shay MD [address] [place] [phone] PCP - General Family Medicine 03/14/23 Interior Horticulturist Relationship Specialty Start Date End Date Corine Gold MD [address] [place], [place] [phone] PCP - General Internal Medicine 03/25/24 Interior Horticulturist Relationship Specialty Start Date End Date Lamont Shay MD [address] [place] [phone] PCP - General Family Medicine 03/14/23 Interior Horticulturist Relationship Specialty Start Date End Date Lamont Shay MD [address] [place] [address] PCP - General Family Medicine 03/14/23 Interior Horticulturist Relationship Specialty Start Date End Date Corine Gold MD [address] [facility] [place] [place] [address] PCP - General Internal Medicine 03/25/24 Inactive [...] BE BASED ON THE PRIMARY CLINICAL RECORDS. [employer] [facility]. provides no warranty or guarantee of the accuracy or completeness of information in this document.
--- NOTE | 2024-04-20 14:17 | ED.GENADUL1 ---
HPI HPI - General Adult General Chief complaint: Headache Stated complaint: MIGRAIN Time Seen by Provider: 04/20/24 13:54 Source: patient Mode of arrival: walk-in Limitations: no limitations History of Present Illness HPI narrative: cc - headache and abd pain Patient suffers from chronic migraines and has frequent visits to the emergency department in addition to regularly scheduled infusions at the [facility]. She returns to the emergency department today complaining of a global headache that began a couple of days ago but has worsened today. In addition she also is experiencing abdominal pain which has been steady since she underwent surgery in March, again at the [facility], in which she said that she had MRSA infection and continues to change the dressings daily. This is not an explosive headache or the worst of her life. She describes as a typical migraine for her. She is concerned because sometimes when her migraines become really bad, then I have a seizure . No recent head injury or illness Related Data Home Medications ?Medication ?Instructions ?Recorded ?Confirmed baclofen 10 mg tablet 10 mg PO TID PRN spasms 07/20/22 04/20/24 diazepam 10 mg tablet 5 mg PO QID PRN seizures 07/20/22 04/20/24 epinephrine 0.3 mg/0.3 mL 0.3 mg IM Q10M PRN anaphylaxis 07/20/22 04/20/24 injection, auto-injector diphenhydramine HCl 25 mg capsule 75 mg PO Q6H PRN migraine headache 01/26/23 04/20/24 (Benadryl) trazodone 300 mg tablet 300 mg PO .qhs 03/03/23 04/20/24 lithium carbonate 300 mg tablet 600 mg PO Q12H 04/27/23 04/20/24 albuterol sulfate 90 mcg/actuation 2 puff inhalation Q4H PRN 08/16/23 04/20/24 aerosol inhaler shortness of breath or wheezing lamotrigine 150 mg tablet 150 mg PO BID 08/16/23 04/20/24 magnesium oxide 400 mg (241.3 mg 400 mg PO .qhs 08/16/23 04/20/24 magnesium) tablet promethazine 12.5 mg tablet 12.5 mg PO Q6H PRN nausea and 08/16/23 04/20/24 vomiting vilazodone 40 mg tablet 40 mg PO DAILY 08/16/23 04/20/24 zolmitriptan 5 mg nasal spray 1 spray intranasal Q2H PRN headache 08/16/23 04/20/24 Previous Rx's ?Medication ?Instructions ?Recorded ketorolac 10 mg tablet 10 mg PO Q8H PRN pain 2 days #6 05/13/23 tabs nabumetone 750 mg tablet 750 mg PO BID PRN pain #14 tabs 04/20/24 Allergies Allergy/AdvReac Type Severity Reaction Status Date / Time dihydroergotamine Allergy Unknown Hives Verified 04/07/24 13:39 vortioxetine Allergy Unknown Hives Verified 04/07/24 13:39 buspirone Allergy Hives Verified 04/07/24 13:39 carbamazepine Allergy Unknown Verified 04/07/24 13:39 levetiracetam (From Keppra) Allergy ITCHING Verified 04/07/24 13:39 azithromycin (From Zithromax) AdvReac Intermediate Hives Verified 04/07/24 13:39 bee venom protein (honey bee) AdvReac Intermediate Hives Verified 04/07/24 13:39 metoclopramide (From Reglan) AdvReac Intermediate panic Verified 04/07/24 13:39 adhesive tape AdvReac Mild Rash Verified 04/07/24 13:39 cephalexin (From Keflex) AdvReac Mild Hives Verified 04/07/24 13:39 dextromethorphan (From AdvReac Mild Unknown Verified 04/07/24 13:39 [place] DM) pyrilamine (From [place] DM) AdvReac Mild Unknown Verified 04/07/24 13:39 prochlorperazine (From AdvReac Anxiety Verified 04/07/24 13:39 Compazine) propranolol AdvReac Hives Verified 04/07/24 13:39 Opioid HPI Opioid Management Most Recent Opioid Data: Last Pain Scale 10 04/20/24 14:27 04/20/24 Last MAR Pain Assessment 04/20/24 14:27 Last ORT Total Score 0 08/16/23 14:51 08/16/23 Last ORT Risk Category Low Risk 08/16/23 14:51 08/16/23 Ur Phencyclidine Scrn Negative (NEGATIVE) 08/16/23 15:15 08/16/23 PFSH PFSH Medical History (Updated 04/20/24 @ 14:20 by Manpreet Hensley) Chronic pain disorder ?G89.4 - Chronic pain syndrome (ICD-10) Migraine ?G43.909 - Migraine, unspecified, not intractable, without status migrainosus (ICD-10) Seizure disorder ?G40.909 - Epilepsy, unspecified, not intractable, without status epilepticus (ICD-10) Bipolar disorder ?F31.9 - Bipolar disorder, unspecified (ICD-10) Pelvic pain ?R10.2 - Pelvic and perineal pain (ICD-10) Bilateral occipital neuralgia ?M54.81 - Occipital neuralgia (ICD-10) Combative behavior ?R46.89 - Other symptoms and signs involving appearance and behavior (ICD-10) PCOS (polycystic ovarian syndrome) ?E28.2 - Polycystic ovarian syndrome (ICD-10) Mitral valve prolapse ?I34.1 - Nonrheumatic mitral (valve) prolapse (ICD-10) GERD (gastroesophageal reflux disease) ?K21.9 - Gastro-esophageal reflux disease without esophagitis (ICD-10) Depression ?F32.A - Depression, unspecified (ICD-10) Blood in urine ?R31.9 - Hematuria, unspecified (ICD-10) Acne ?L70.9 - Acne, unspecified (ICD-10) Dyspareunia Brain mass ?G93.89 - Other specified disorders of brain (ICD-10) Kidney stones ?N20.0 - Calculus of kidney (ICD-10) COVID-19 ?U07.1 - COVID-19 (ICD-10) Bronchitis ?J40 - Bronchitis, not specified as acute or chronic (ICD-10) Asthma ?J45.909 - Unspecified asthma, uncomplicated (ICD-10) Stress incontinence ?N39.3 - Stress incontinence (female) (male) (ICD-10) Dysuria ?R30.0 - Dysuria (ICD-10) Anxiety ?F41.9 - Anxiety disorder, unspecified (ICD-10) Surgical History H/O laparoscopy (07/21/22) ?Z98.890 - Other specified postprocedural states (ICD-10) S/P RAVI-BSO ?Z90.710 - Acquired absence of both cervix and uterus (ICD-10) ?Z90.722 - Acquired absence of ovaries, bilateral (ICD-10) ?Z90.79 - Acquired absence of other genital organ(s) (ICD-10) Hx laparoscopic cholecystectomy ?Z90.49 - Acquired absence of other specified parts of digestive tract (ICD-10) H/O: ?Z98.891 - History of uterine scar from previous surgery (ICD-10) History of appendectomy ?Z90.49 - Acquired absence of other specified parts of digestive tract (ICD-10) Family History Other Acid reflux Acute renal disease Afib Chromosomal disorder Delayed developmental milestones Diabetes Family history of hypertension High cholesterol Neuro-irritability due to autonomic dysfunction 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 afebrile General: Well-appearing and in no apparent distress. Skin: Warm, dry, no pallor noted. No rash. Head: Normocephalic, atraumatic. Neck: Supple, non-tender. No meningismus Eye: Pupils are equal, round and EOMI. No scleral icterus. Cardiovascular: Regular Rate and Rhythm without murmur, gallop or rub. Respiratory: No accessory muscle use or respiratory distress. Lungs are clear to auscultation, no wheezing, rales or rhonchi Musculoskeletal: normal ROM GI: Abdomen is soft, non-distended. Normal bowel sounds. There is a dressing in the upper portion of the abdomen. No erythema, warmth or masses appreciated. No focal tenderness to palpation -she has mild generalized tenderness without rebound, guarding, or rigidity noted. Neurological: A&O x4. No cranial nerve dysfunction observed. No truncal ataxia. Moves all extremities. Sensation intact. Psychiatric: Cooperative and interactive. Normal mood and affect. Constitutional Vital Signs, click to edit/add: Last Vital Signs Temp 97.7 F 04/20/24 13:56 Pulse 98 H 04/20/24 13:56 Resp 18 04/20/24 13:56 BP 122/87 04/20/24 13:56 Pulse Ox 99 04/20/24 13:56 O2 Del Method Room Air 04/20/24 13:56 Course Vital Signs Vital signs: Vital Signs Temperature 97.7 F 04/20/24 13:56 Pulse Rate 98 H 04/20/24 13:56 Respiratory Rate 18 04/20/24 13:56 Blood Pressure 122/87 04/20/24 13:56 Pulse Oximetry 99 04/20/24 13:56 Oxygen Delivery Method Room Air 04/20/24 13:56 Temperature 97.7 F 04/20/24 13:56 Pulse Rate 98 H 04/20/24 13:56 Respiratory Rate 18 04/20/24 13:56 Blood Pressure 122/87 04/20/24 13:56 Pulse Oximetry 99 04/20/24 13:56 Oxygen Delivery Method Room Air 04/20/24 13:56 Medical Decision Making MDM Narrative Medical decision making narrative: The patient is well-known to the ED staff and I. Often times it is difficult to get IV access. Therefore I ordered the patient receive IM Dilaudid, oral Benadryl and oral Zofran for her headache. The Dilaudid will also help with her abdominal pain. I do not see any evidence of acute surgical abdomen and she can follow-up with her surgical team on April 23 as scheduled. She said that the ED treatment cut her pain in half. She asked if I would prescribe pain meds to go, which I said I would not and that she would need to get those through her surgical team or Neurologist at [facility] - she asked not even something like tylenol with codeine or tramadol . She was given an injection of Toradol before discharge to try and improve her headache further. She was prescribed relafen to take for pain. She will see her surgical team on Apr 23, 2024, as scheduled. Discharge Plan Discharge Chief Complaint: Headache Clinical Impression: Migraine, Abdominal pain Patient Disposition: Home, Self-Care Time of Disposition Decision: 15:16 Prescriptions / Home Meds: New nabumetone 750 mg tablet 750 mg PO BID PRN (Reason: pain) Qty: 14 0RF No Action baclofen 10 mg tablet 10 mg PO TID PRN (Reason: spasms) diazepam 10 mg tablet 5 mg PO QID PRN (Reason: seizures) epinephrine 0.3 mg/0.3 mL auto-injector 0.3 mg IM Q10M PRN (Reason: anaphylaxis) Rx Instructions: for 2 doses trazodone 300 mg tablet 300 mg PO .qhs lithium carbonate 300 mg tablet 600 mg PO Q12H ketorolac 10 mg tablet 10 mg PO Q8H PRN (Reason: pain) 2 Days Qty: 6 0RF albuterol sulfate 90 mcg/actuation HFA aerosol inhaler 2 puff INHALATION Q4H PRN (Reason: shortness of breath or wheezing) lamotrigine 150 mg tablet 150 mg PO BID magnesium oxide 400 mg (241.3 mg magnesium) tablet 400 mg PO .qhs promethazine 12.5 mg tablet 12.5 mg PO Q6H PRN (Reason: nausea and vomiting) vilazodone 40 mg tablet 40 mg PO DAILY zolmitriptan 5 mg spray,non-aerosol 1 spray INTRANASAL Q2H PRN (Reason: headache) Rx Instructions: May repeat once if needed after =2 hours diphenhydramine HCl [Benadryl] 25 mg capsule 75 mg PO Q6H PRN (Reason: migraine headache) Print Language: [place] Citizen Instructions: Migraine Headache (ED), Abdominal Pain (ED) Referrals: Lamont Blair MD [Primary Care Provider] - 1 week
[2024-04-20] MEDS: HYDROMORPHONE HCL 1 MG/ML CARTRIDGE IM (14:27)
[2024-04-20] MEDS: DIPHENHYDRAMINE HCL 25 MG CAPSULE PO (14:29)
[2024-04-20] MEDS: ONDANSETRON 4 MG RAPDIS TABLET SL (14:29)
[2024-04-20] MEDS: KETOROLAC TROMETHAMINE 60 MG/2 ML VIAL IM (15:25)
[2024-04-20 15:32] VITALS: BP 134/87; PULSE 88; O2SAT 99
== END 2024-04-20 15:33 | disposition home or self-care (01) ==
PROVIDERS: Emergency Provider Emergency Medicine; PCP Family Medicine
DX: G43.909 Migraine, unspecified, not intractable, without status migrainosus (principal); R10.9 Unspecified abdominal pain; Z86.14 Personal history of Methicillin resistant Staphylococcus aureus infection; Z90.710 Acquired absence of both cervix and uterus; Z90.722 Acquired absence of ovaries, bilateral; Z90.49 Acquired absence of other specified parts of digestive tract
CPT/HCPCS: 96372; 99284; J1171; J1885; Q0162

== ENCOUNTER 2024-05-03 23:24 | Emergency (ER) | payer OTHER, SELFPAY ==
[2024-05-03 23:33] VITALS: BP 142/92; PULSE 67; TEMP 36.6; O2SAT 97; BMI 43.8
--- OUTSIDE RECORDS SUMMARY | 2024-05-03 23:40 | XMS_ITS | CCD ---
Author Organization [facility] Care Team Providers Care Circular Knife Machine Cutter Name Role Phone Abdifatah Brady (Historical) Primary Care Provide r Unavailable Kuns MANAGER DIALYSIS - CHILD NURSE, Derik Santiago Primary Care Provider DERIK ARTHUR Primary Care Unavailable KEVEN CHING Attending Unavailable Kuns MANAGER DIALYSIS - CHILD NURSE, Derik Santiago Primary Care Provider LUCILA MOTA Attending Unavailable PAYKINGS Referring Unavailable DERIK ARTHUR Primary Care Unavailable LUCILA MOTA Admitting [...] Unavailable SUKHDEEP DOCKERY Admitting Unavailable KUNKrupa, DR DERIK Santiago Primary Care Unavailable GRECHNY ., MARY WHITNEY Consulting Unavailabl e ANASTASIIA, HOSPHUONG Consulting Unavailable SUKHDEEP DOCKERY Attending Unavailable SANDHYA, DR DERIK Santiago Primary Care Unavailable SUKHDEEP [...] Unavailable SAY, MANJINDER Consulting Unavailable KUNKrupa, DR DERIK Santiago Primary Care Unavailable SAY, MANJINDER Attending Unavailable SAY, MANJINDER Consulting Unavailable REQUEST, DR NONE LISTED Primary Care Unavaila ble SAY, MANJINDER Admitting Unavailable PATRICIA WALSH Consulting Unavailable [facility] DR GOMEZ Primary Care Unavailable HAY ., DR HARMAN Attending Unavailable HAY ., DR HARMAN Admitting Unavailable NEWSTEWART, NICHOLAS Consulting Unavailable UNLU, SINDY Consulting Unavailable ROOPA ., DR GUTIERREZ Admitting Unavailable ROOPA ., DR GUTIERREZ Consulting Unavailable [facility] Primary Care Unavailable ROOPA ., DR GUTIERREZ Attending Unavailable KUNS, DR DERIK Santiago Primary Care Unavailable ROOPA ., DR GUTIERREZ Admitting Unavailable ROOPA ., DR GUTIERREZ Attending Unavailable ROOPA ., DR GUTIERREZ Consulting Unavailable ROOPA ., DR GUTIERREZ Admitting Unavailable ROOPA ., DR GUTIERREZ Attending Unavailable NADERER, DR LAMONT Garcia Primary Care Unavailable [facility] Primary Care Unavailable HAY ., DR HARMAN Consulting Unavailable HAY ., DR HARMAN Admitting Unavailable HAY ., DR HARMAN Attending Unavailable KONNICOLE KING Consulting Unavailable KUNKrupa, DR DERIK Santiago Primary Care Unavailable MARKER ., DR ONEAL Attending Unavailable MARKER ., DR ONEAL Consulting Unavailable MARKER ., DR ONEAL Admitting Unavailable SCHNECHRISTINE, ROBIN Consulting Unavailable SAY, MANJINDER Attending Unavailable SAY, MANJINDER Consulting Unavailable SAY, MANJINDER Admitting Unavailable KUNKrupa, DR DERIK Santiago Primary Care Unavailable KUNKrupa, DR DERIK Santiago Referring Unavailable ROOPA ., DR GUTIERREZ Admitting Unavailable ROOPA ., DR GUTIERREZ Attending Unavailable ROOPA ., DR GUTIERREZ Consulting Unavailable REQUEST, DR NONE LISTED Primary Care Unavaila ble AGUBOSIM, BARON Consulting Unavailable ROOPA ., DR GUTIERREZ Procedure Practitioner Unavail able KRYSTIN HERNADEZ Consulting Unavailable LUCIE, KLEBER Consulting Unavailable DORSHARDA MCCARTY Consulting Unavailable ALECIA ., DENNIS Admitting Unavailable ALECIA ., DENNIS Attending Unavailable MISC, DR GOMEZ Primary Care Unavailable HAY ., DR HARMAN Consulting Unavailable RIZZO, ANKUR Consulting Unavailable ALECIA ., DENNIS Consulting Unavailable KUNS, DR DERIK Santiago Primary Care [...] Unavailable Lamont Shay MD Primary Care Provider [phone] Lamont Shay MD Primary Care Provider SAGAR BARTH Attending Unavailable GREEN, KOLI Referring Unavailable BIDDLECOM, SUZAN Referring Unavailable BIDDLECOM, SUZAN Referring Unavailable BIDDLECOM, SUZAN Attending Unavailable ОЛЬГА AGUILAR Attending Unavailable BIDDLECOM, SUZAN Referring Unavailable GREEN, SAGAR Referring Unavailable ОЛЬГА AGUILAR Attending Unavailable GREEN, KOLI Referring Unavailable GREEN, SAGAR Attending Unavailable CURTIS LEPE Attending Unavailable BIDDLECOM, SUZAN Referring Unavailable GREEN, KOLI Referring Unavailable GREEN, SAGAR Attending Unavailable RAIZA MORALES Attending Unavailable BIDDLECOM, SUZAN Referring Unavailable GREENSAGAR Attending Unavailable BIDDLECOM, SUZAN Referring Unavailable BIDDLECOM, SUZAN Attending Unavailable BIDDLECOM, SUZAN Referring Unavailable BIDDLECOM, SUZAN Referring Unavailable Corine Gold MD Primary Care Provider [phone] ZAY BLAS Attending Unavailable ZAY BLAS Attending Unavailable ROOPA, ZAY Attending Unavailable SHAIKH WALLS Attending Unavailable ZAY BLAS Attending Unavailable LAMONT SHAY Attending Unavailable LAURITA, LAMONT Attending Unavailable ROOPA, ZAY Attending Unavailable LAMONT SHAY Attending Unavailable LAMONT SHAY Attending Unavailable LAMONT SHAY Attending Unavailable ROOPA, ZAY Attending Unavailable ZAY BLAS Attending Unavailable Dariusz Estrada Admitting Unavailable Dariusz Estrada Attending Unavailable Lamont Shay Primary Care Unavailable NON STAFF Primary Care Unavailable Ramsey Maloney Admitting Unavailab le Ramsey Maloney Attending Unavailab le Allergies Allergy Classification Reported Allergen(s) Allergy Type Date of Onset Reaction(s) Facility Anti-Epileptic Agents (1 source) levETIRAcetam Drug Allergy 023 Itching [facility] Work Phone: Cephalosporins (antibiotic) (1 source) Cephalexin Drug Allergy Rash [facility] Dextromethorphan / Pyrilamine (1 source) Dextromethorphan / Pyrilamine Drug Allergy 022 Hives [facility] Work Phone: Dihydroergotamine (1 source) Dihydroergotamine Drug Allergy 023 Intolerance [facility] DOPamine Antagonists (1 source) Metoclopramide Drug Allergy Intolerance [facility] Macrolides (antibiotic) (1 source) Azithromycin Drug Allergy Other: See Comments [facility] vortioxetine (1 source) vortioxetine Drug Allergy Hives [facility] (20 sources) Azithromycin; Translations: [AZITHROMYCIN] Drug Allergy Hives, Other: See Comments [facility] (20 sources) carBAMazepine Drug Allergy Other (See Comments) [facility] ([facility] sources) Cephalexin; Translations: [CEPHALEXIN] Drug Allergy Hives, Rash [facility] (20 sources) Metoclopramide; Translations: [METOCLOPRAMIDE] Drug Allergy Hives, Intolerance, Unknown, Rash, Other (See Comments) [employer] (20 sources) Propranolol Drug Allergy Hives, Other (See Comments) [facility] (20 sources) Adhesive Tape-Silicones; Translations: [ADHESIVE TAPE-SILICONES] Drug Allergy Rash [facility] (20 sources) Dextromethorphan / Pyrilamine; Translations: [PYRILAMINE-DEXTROME THORPHAN] Drug Allergy [facility] Work Phone: (20 sources) vortioxetine; Translations: [VORTIOXETINE] Drug Allergy 022 [facility] Work Phone: (20 sources) Dihydroergotamine; Translations: [DIHYDROERGOTAMINE] Drug Allergy 023 Intolerance, GI intolerance, GI Disturbance, [facility] (1 source) Azithromycin Drug Allergy [facility] (1 source) bee venom Drug allergy (disorder) [facility] (1 source) Cephalexin Drug Allergy [facility] (1 source) Desonide Drug Allergy [facility] (1 source) Iothalamate Drug Allergy [facility] (2 sources) Propranolol; Translations: [PROPRANOLOL] Drug Allergy 021 [facility] (1 source) [place] [facility] Drug allergy (disorder) [facility] (20 sources) levETIRAcetam; Translations: [LEVETIRACETAM] Drug Allergy 023 Itching, [facility] Work Phone: (2 sources) Valproate; Translations: [DIVALPROEX] Drug Allergy 024 [facility] Work Phone: [phone] (20 sources) busPIRone Drug Allergy 022 [facility] Work Phone: (20 sources) Carbamazepine Allergy to substance Unknown [facility] (20 sources) Ciprofloxacin Drug Allergy [facility] (20 sources) Clarithromycin Allergy to substance 024 GI intolerance [facility] (20 sources) Clindamycin Drug Allergy 021 Unknown, [facility] (20 sources) Dextromethorphan Drug Allergy [facility] (20 sources) Dextromethorphan / Pyrilamine Drug Allergy [facility] (20 sources) Honey bee venom Allergy to substance 023 Unknown [facility] (20 sources) Levetiracetam Propensity to adverse reactions Itching [facility] (20 sources) Propranolol Drug Allergy Hives, Other: See Comments [facility] (20 sources) vortioxetine Drug Allergy Hives [facility] (20 sources) Other Allergy to substance [facility] (20 sources) Wound Dressing Adhesive Drug Allergy Rash [facility] (20 sources) Prochlorperazine; Translations: [PROCHLORPERAZINE] Drug Allergy Intolerance, Anxiety [facility] (20 sources) Adhesive agent Propensity to adverse reactions to drug Rash [facility] (20 sources) Dexamethasone Drug Allergy [facility] (20 sources) Metoclopramide Drug Allergy Itching, Anxiety [facility] (20 sources) Bee Venom Protein (Honey Bee) Propensity to adverse reactions to drug Anaphylaxis [facility] (1 source) Azithromycin Drug Allergy [facility] (1 source) Cephalexin Drug Allergy [facility] (1 source) levETIRAcetam Drug Allergy [facility] (1 source) Metoclopramide Drug Allergy [facility] (1 source) Prochlorperazine Drug Allergy [facility] (1 source) eptinezumab Drug Allergy Rash, Itching [facility] Medications Current Medications Medication Drug Class(es) Dates Sig (Normalized) Sig (Original) [id number] 200 actuat albuterol 0.09 mg/actuat metered dose inhaler (20 sources) beta2-Adrenergic Agonist Start: 03-20-2024 take [...] g 3 11/06/2023 12/06/2023 Active Start: 06-07-2022 End: 05-01-2024 take 2 puff(s) by mouth every four hours as needed albuterol (VENTOLIN HFA) 90 mcg/actuation inhaler Indications: Moderate persistent asthma, unspecified whether complicated INHALE TWO PUFFS BY MOUTH EVERY 4 HOURS NEEDED 18 g 3 05/01/2024 Active Start: 06-07-2022 End: 03-20-2024 take 0.63 [...] tablet (20 sources) gamma-Aminobutyric Acid-ergic Agonist Start: 04-25-2024 take 1 tablet by mouth once daily baclofen (LIORESAL) 10 mg tablet Indications: Muscle spasm Take 1 tablet (10 mg total) by mouth nightly. 30 tablet 3 04/25/2024 Active Start: 11-10-2023 End: 02-08-2024 take 1 tablet [...] tablet 2 07/14/2023 Active Start: 11-22-2021 End: 04-25-2024 take 1 tablet by mouth three times daily at bedtime baclofen (Lioresal) 10 MG tablet Indications: Pelvic pain in female TAKE 1 TABLET BY MOUTH THREE TIMES DAILY (IN THE MORNING, IN THE EVENING and BEFORE bedtime) 90 tablet 2 02/15/2024 02/28/2024 Discontinued Comment on above: Take 10 mg by [...] for rescue. 30 tablet 0 12/09/2022 Active End: 04-25-2024 take 1 tablet by mouth four times daily as needed chlorzoxazone (PARAFON FORTE) 500 mg tablet Take 1 tablet (500 mg total) by mouth 4 (four) times a day as needed. 04/25/2024 Discontinued Comment on above: Take 1 tablet by [...] minutes after.. 20 tablet 01/23/2024 02/09/2024 Discontinued fluticasone-umec lidin-vilanter (TRELEGY ELLIPTA) 200-62.5-25 mcg blister with device (20 sources) Start: 03-20-2024 take 1 puff(s) by inhalation in the morning fluticasone-umec lidin-vilanter (TRELEGY ELLIPTA) 200-62.5-25 mcg blister with device Indications: Moderate asthma with acute exacerbation, unspecified whether persistent Inhale 1 puff in the morning. 60 each 11 03/20/2024 Start: 03-20-2024 take 1 puff(s) by inhalation in the morning qxtclcaiqtm-ewdenzjlt-blthujyh (TRELEGY ELLIPTA) 200-62.5-25 mcg blister with device [...] 10/25/2023 Active ibuprofen 800 mg oral tablet (20 sources) Nonsteroidal Anti-inflammatory Drug Start: 04-08-2024 End: [...] medicated shampoo (20 sources) Azole Antifungal Start: 04-25-2024 ketoconazole (NIZORAL) 2 % shampoo Apply 1 Application topically 2 (two) times a week. Apply to damp skin, lather, leave on 5 minutes, and rinse 120 mL 04/25/2024 Active Start: 11-26-2021 End: 04-25-2024 ketoconazole (NIZORAL) 2 % s hampoo APPLY TO AFFECTED AREA(S) LATHER AND LEAVE IN PLACE FOR 5 MINUTES AND THEN RINSE OFF WITH WATER. DO THIS 2 TIMES A WEEK FOR 4 WEEKS 120 mL 11/26/2021 04/25/2024 Discontinued lamoTRIgine 200 mg oral tablet (20 sources) [...] the morning. 03/25/2024 Discontinued (Dose adjustment) lidocaine 0.05 mg/mg topical ointment (10 sources) Antiarrhythmic, Amide Local Anesthetic Start: 04-24-2024 lidocaine (XYLOCAINE ) 5 % ointment Indications: Post-operative pain Apply 1 Application topically as needed for pain. 35.44 g 04/24/2024 Active Start: 10-20-2021 lidocaine 4 % external patch [...] oral capsule (20 sources) Start: 07-10-2023 End: 04-25-2024 take 1 capsule by mouth once daily [...] Take 1 tablet by sami twice daily. mupirocin 0.02 mg/mg topical ointment (2 sources) RNA Synthetase Inhibitor Antibacterial Start: 05-02-2024 End: 05-09-2024 mupirocin (BACTROBAN) 2 % ointment Indications: Postoperative infection, unspecified type, subsequent encounter Apply 1 Application topically in the morning and 1 Application before bedtime. Do all this for 7 days. 30 g 05/02/2024 05/02/2024 Discontinued (Reorder) Nirmatrelvir&Ritona vir 300/100 (Paxlovid, 300/100,) 20 x 150 MG & 10 x 100MG tablet therapy pack (3 sources) Start: 12-12-2023 End: 01-09-2024 Nirmatrelvir&Ritona vir 300/100 (Paxlovid, 300/100,) 20 x 150 MG & 10 x 100MG tablet therapy pack Indications: COVID-19 Take 1 each by mouth See administration instructions 1 each 12/12/2023 01/09/2024 Discontinued Start: 12-12-2023 Nirmatrelvir&R itonavir 300/100 (Paxlovid, 300/100,) 20 x 150 MG & 10 x 100MG tablet therapy pack Indications: COVID-19 Take 1 each by mouth See administration instructions 1 each 12/12/2023 Active ondansetron (ZOFRAN-ODT) disintegrating tablet 4 mg [...] needed. oxyCODONE hydrochloride 5 mg oral tablet (20 sources) Opioid Agonist Start: End: take 1 tablet by mouth every six hours as needed for pain oxyCODONE (ROXICODONE) 5 mg immediate release tablet Indications: Postoperative surgical complication involving genitourinary system associated with genitourinary procedure, unspecified complication Take 1 tablet (5 mg total) by mouth every 6 (six) hours as needed for pain for up to 3 days. Max Daily Amount: 20 mg 12 tablet 04/29/2024 05/02/2024 Active Start: 03-28-2024 End: 04-22-2024 take 1 tablet [...] mg 30 tablet 04/10/2024 04/15/2024 Discontinued (Reorder) microencapsulated potassium chloride 20 meq extended release oral tablet (2 sources) Start: 03-26-2024 End: 03-28-2024 take 1 tablet by mouth in the morning potassium chloride (KLOR-CON M 20) 20 MEQ CR tablet Take 1 tablet (20 mEq total) by mouth in the morning for 2 days. 2 tablet 03/26/2024 03/28/2024 Active predniSONE 50 mg oral tablet (15 sources) Start: 01-23-2024 End: 01-29-2024 take 1 tablet by mouth once daily predniSONE (Deltasone) 50 MG tablet Indications: Mild persistent asthma with (acute) exacerbation (CMS/[facility]) Take 1 tablet (50 mg) by mouth Daily for 6 days 6 tablet 01/23/2024 01/29/2024 Active Start: 11-15-2023 take 6 tablets by mo ut once daily, then take 4 tablets by [...] Start: 11-15-2023 take 6 tablets by mo ut once daily, then take 4 tablets by [...] tablet 5 11/10/2023 Active Start: 05-13-2023 End: 04-25-2024 take 1 tablet by mouth every six hours as needed for nausea and vomiting promethazine (PHENERGAN) 25 mg tablet Take 1 tablet (25 mg total) by mouth every 6 (six) hours as needed for nausea or vomiting. 15 tablet 08/10/2023 04/25/2024 Discontinued Start: 03-17-2023 End: 02-28-2024 take 1 tablet [...] sami th every 6 hours as needed. terconazole 4 mg/ml vaginal cream (1 source) Azole Antifungal Start: 01-15-20 End: 01-22-20 terconazole (Terazol 7) 0.4 % vaginal cream Indications: Yeast infection Insert 1 applicator into the vagina at bedtime for 7 days 45 g 01/15/2024 01/22/2024 Active 28 actuat tiotropium 0.44590 mg/actuat inhalation spray (20 sources) Anticholinergic Start: 04-26-19 End: 02-27-19 Spiriva Respimat 1.25 MCG/ACT inhaler inhale 2 puffs by mouth once daily 04/26/2023 02/28/2024 Discontinued traMADol hydrochloride 50 mg oral tablet (8 sources) Opioid Agonist Start: 01-09-20 End: 01-29-20 take 1 tablet by mouth four times daily as needed for pain traMADol (Ultram) 50 MG tablet Indications: Pain, dental Take 1 tablet (50 mg) by mouth 4 (four) times a day as needed for severe pain for up to 7 days 28 tablet 01/22/2024 01/29/2024 Active ZOLMitriptan 5 mg/actuat nasal spray (20 sources) Serotonin-1b and Serotonin-1d Receptor Agonist Start: 03-17-19 End: 04-26-19 25 ZOLMitriptan (ZOMIG) 5 mg nasal spray Use 1 [place] in the nose as needed at onset of migraine headache. If symptoms persist or return, may repeat dose in other nostril after 2 hours. Maximum of 2 sprays per 24 hours 12 Each 5 01/30/2024 Active Start: 06-24-2022 ZOLMitriptan ( ZOMIG) 5 mg nasal spray Use 1 [place] in the nose as needed at onset of migraine headache. If symptoms persist or return, may repeat dose in other nostril after 2 hours. Maximum of 2 sprays per 24 hours 10 Each 2 06/24/2022 Active Start: 06-24-2022 take 1 spray(s) nasa l route every twenty-four hours as needed ZOLMitriptan (ZOMIG) 5 mg nasal spray Use 1 [place] in the nose as needed. SPRAY IN 1 NOSTRIL AT ONSET OF MIGRAINE HEADACHE. If symptoms persist or return, may repeat dose after 2 hours. Maximum: 5 mg/dose; 10 mg per 24 hours 10 Each 2 06/24/2022 Active Comment on above: Use 1 [place] in the n ose as needed. SPRAY IN 1 NOSTRIL AT ONSET OF MIGRAINE HEADACHE. If symptoms persist or return, may repeat dose after 2 hours. Maximum: 5 mg/dose; 10 mg per 24 hours Use 1 [place] in the n ose as needed at onset of migraine headache. If symptoms persist or return, may repeat dose in other nostril after 2 hours. Maximum of 2 sprays per 24 hours Completed/Discontinued Medications Medication Drug Class(es) Dates Sig (Normalized) Sig (Original) acetaminophen 500 mg oral tablet (20 sources) Start: 04-08-2024 End: 04-10-2024 take 1 tablet by mouth every six hours as needed for pain 1,000 mg, oral, Every 6 hours PRN, mild pain - pain scale 1-3, Starting on Mon04/08/24 at 1825 Start: 03-28-2024 take 2 tablets by mo uth every six hours as needed for pain [...] 10/20/2021 Discontinued (Stop Taking at Discharge) diphenhydrAMINE (10 sources) Histamine-1 Receptor Antagonist Start: 05-02-2024 End: 05-02-2024 50 mg, INTRAVENOUS, NEEDED, 1 dose, Starting on Meg 05/02/24 at 1156, Until Meg 05/02/24 at 1200, Administer per hypersensitivity/anaphyl axis grading in nursing communication Start: 04-09-2024 End: 04-09-2024 12.5 mg, intravenous, [...] 12-24-2020 diphenhydrAMINE (BENADRYL) i njection 50 mg docusate sodium 50 mg / sennosides, skilled nursing 8.6 mg oral tablet (11 sources) Start: 03-28-2024 End: 04-25-2024 take 1 tablet by mouth at bedtime sennosides-docusate sodium (SENNA WITH DOCUSATE SODIUM) 8.6-50 mg Take 1 tablet by mouth in the morning and at bedtime. 30 tablet 1 03/28/2024 04/25/2024 Discontinued 0.4 ml enoxaparin sodium 100 mg/ml prefilled syringe (1 source) Low Molecular Weight Heparin Start: 10-19-2021 inject 40 mg by subcutaneous injection once daily 40 mg, SubCUTAneous, DAILY, First dose on Mon10/19/21 at 1245, Until Discontinued Indication of Use: Prophylaxis-DVT/PE [id number] 0.3 ml EPINEPHrine 1 mg/ml auto-injector (19 sources) alpha-Adrenergic Agonist, beta-Adrenergic Agonist, Catecholamine Start: 06-07-2022 End: 04-25-2024 EPINEPHrine (EPIPEN) 0.3 mg/0.3 mL auto-injector 0.3 mL (0.3 mg total) by other route as needed (exposure to allergen). 2 each 1 06/07/2022 04/25/2024 Discontinued EPINEPHrine 0.01 mg/ml / lidocaine hydrochloride 10 mg/ml injectable solution (1 source) Antiarrhythmic, alpha-Adrenergic Agonist, beta-Adrenergic Agonist, Catecholamine, Amide Local Anesthetic Start: 04-08-2024 End: 04-08-2024 30 mL, intradermal, Once, On Mon04/08/24 at 1805, For 1 dose, Look-alike/sound-alike medication - verify indication for use. eptinezumab-jjmr 100 mg in NaCl 0.9% 100 mL (VYEPTI) (3 sources) Start: 05-02-2024 End: 05-02-2024 100 mg, INTRAVENOUS, at 200 mL/hr, Administer over 30 Minutes, ONCE, 1 dose, On Mon05/02/24 at 1100, EXP: Administer with 0.2 micron filter. Start: 01-05-2024 End: 01-05-2024 100 mg, INTRAVENOUS, [...] eously once every month. Do not shake. 84 hr estradiol 0.85659 mg/hr transdermal system (20 sources) Estrogen Start: 04-15-2024 End: 04-25-2024 estradioL (VIVELLE-DOT) 0.05 mg/24 hr Indications: Menopausal symptoms Place 1 patch on the skin 2 (two) times a week. 8 patch 04/15/2024 04/25/2024 Discontinued Start: 04-11-2024 End: 04-15-2024 estradioL (VIVELLE-DOT) 0.03 75 mg/[address] 1 patch on the skin 2 (two) times a week. 5 patch 2 04/11/2024 04/15/2024 Discontinued (Dose adjustment) Start: 04-09-2024 End: 04-10-2024 1 patch, transdermal, [...] 02/28/2024 Discontinued fluconazole 150 mg oral tablet (3 sources) Azole Antifungal Start: 04-02-2024 End: 04-02-2024 take 1 tablet by mouth once, then [...] extended release oral tablet (8 sources) Start: 023 End: take 1 tablet by mouth once guaiFENesin [...] sources) Nonsteroidal Anti-inflammatory Drug, Cyclooxygenase Inhibitor Start: 05-02-2024 End: 05-02-2024 keTORolac 30 mg injection (Toradol) Start: 05-02-2024 End: 05-02-2024 30 mg, INTRAVENOUS, ONCE, 1 dose, On Meg 05/02/24 at 1200, Ketorolac (Toradol) is indicated for the short-term (up to 5 days) management of moderately severe acute pain. Continuation of ketorolac (Toradol) beyond 5 days increases the risk of developing serious adverse events. Please verify the duration of therapy for ketorolac (Toradol). Start: 04-09-2024 End: 04-09-2024 15 mg, intramuscular, [...] for ketorolac (Toradol). Start: 01-05-2024 End: 01-05-2024 keTORolac 30 mg injection (T oradol) Start: 01-05-2024 End: 01-05-2024 30 mg, INTRAVENOUS, ONCE, 1 dose, On Mon01/05/24 at 1330, Ketorolac (Toradol) is indicated for the short-term (up to 5 days) management of moderately severe acute pain. Continuation of ketorolac (Toradol) beyond 5 days increases the risk of developing serious adverse events. Please verify the duration of therapy for ketorolac (Toradol) Start: 10-13-2023 End: 10-13-2023 keTORolac 30 mg [...] of the opioid, if preferred: Yes Start: 05-14-2023 End: 02-28-2024 take 1 tablet [...] sources) beta2-Adrenergic Agonist Start: 01-28-20 End: 03-25-19 take 1-2 puff(s) by inhalation every four [...] tablet (20 sources) Start: 04-08-19 End: 04-10-19 25 600 mg, oral, Nightly, First dose on [...] ER (Eskalith) 450 MG 12 hr tablet [place] 01/09/2024 Discontinued 1 ml LORazepam 2 mg/ml [...] 10-15 minutes following infusion. Start: 01-17-2024 End: 11-27-2024 1,000 mg, INTRAVENOUS, Admin ister over 30 [...] 10-19-2021 midazolam PF (VERSED) injection 1 mg montelukast 10 mg oral tablet (19 sources) Leukotriene Receptor Antagonist Start: 06-07-2022 End: 04-25-2024 take 1 tablet by mouth in the morning montelukast (SINGULAIR) 10 mg tablet Take 1 tablet (10 mg total) by mouth in the morning. 30 tablet 06/07/2022 04/25/2024 Discontinued 1 ml morphine sulfate 4 mg/ml injection (1 source) Opioid Agonist Start: 04-08-2024 End: 04-08-2024 4 mg, intravenous, Once, On Mon04/08/24 at 1335, For 1 dose, Look-alike/sound-alike medication - verify indication for use. naloxone (NARCAN) 4 mg/actuation spray,non-aerosol nasal spray (6 sources) Start: 04-10-2024 End: 04-25-2024 naloxone (NARCAN) 4 mg/actuation spray,non-aerosol nasal spray Administer 1 spray (4 mg total) into alternating nostrils as needed for opioid reversal. 1 each 04/10/2024 04/25/2024 Discontinued Start: 04-10-2024 naloxone (NARC AN) 4 mg/actuation spray,non-aerosol nasal spray Administer 1 spray (4 mg total) into alternating nostrils as needed for opioid reversal. 1 each 04/10/2024 Active Start: 04-10-2024 naloxone (NARC AN) 4 mg/actuation spray,non-aerosol nasal spray Administer 1 spray (4 mg total) into alternating nostrils as needed for opioid reversal. 1 each 04/10/2024 naratriptan 2.5 mg oral tablet (4 sources) [...] completed) Start: 01-24-2024 End: 04-23-2024 nystatin (Mycostatin) 717776 UNIT/GM powder Indications: Rash , Yeast dermatitis Apply topically 2 (two) times a day 60 g 01/24/2024 02/28/2024 Discontinued omeprazole 40 mg delayed release oral capsule (20 sources) Proton Pump Inhibitor Start: 03-20-2024 End: 04-25-2024 take 1 capsule by mouth in the morning omeprazole (PriLOSEC) 40 mg capsule Indications: Gastroesophageal reflux disease, unspecified whether esophagitis present Take 1 capsule (40 mg total) by mouth in the morning. 30 capsule 11 03/20/2024 04/25/2024 Discontinued Start: 01-27-2022 End: 04-08-2024 take 1 capsule by mouth in the morning omeprazole (PriLOSEC) 20 mg capsule Take 1 capsule (20 mg total) by mouth in the morning. 30 capsule 1 01/27/2022 04/08/2024 Discontinued (Therapy completed) 2 ml ondansetron 2 mg/ml injection (20 sources) Serotonin-3 Receptor Antagonist Start: 05-02-2024 End: 05-02-2024 8 mg, INTRAVENOUS, EVERY 1 HOUR NEEDED, 2 doses, Starting on Meg 05/02/24 at 1032, Until Meg 05/02/24 at 1436, Nausea/Vomiting - First Line - Parenteral Start: 04-08-2024 End: 04-08-2024 4 mg, intravenous, Once, On Mon04/08/24 at 1335, For 1 dose, Administer over 2-5 minutes. Start: 02-10-2024 End: 04-25-2024 take 1 tablet by mouth every eight hours as needed for nausea ondansetron ODT (ZOFRAN ODT) 4 mg disintegrating tablet Dissolve 1 tablet (4 mg total) on tongue every 8 (eight) hours as needed for nausea for up to 20 doses. 10 tablet 02/10/2024 04/25/2024 Discontinued Start: 01-22-2024 End: 01-22-2024 8 mg, INTRAVENOUS, [...] 12-24-2020 ondansetron (ZOFRAN) injecti on 4 mg phentermine hydrochloride 37.5 mg oral tablet (20 [...] drug prior to administration polyethylene glycol 3350 08773 mg powder for oral solution (1 source) [...] mg/mL (0.5 %) 100 mg injection (NAROPIN) 72 hr scopolamine 0.0139 mg/hr transdermal system (20 sources) Anticholinergic Start: 03-18-2024 End: 05-13-2024 apply 1 dose transdermal route once daily scopolamine (TRANSDERM-SCOP) 1 mg/3 days Indications: Nausea and vomiting, unspecified vomiting type Place 1 patch on the skin every third day for 10 doses. 10 patch 04/15/2024 04/25/2024 Discontinued 1000 ml sodium chloride 9 mg/ml injection (12 sources) Start: 05-02-2024 End: 05-02-2024 500-999 mL/hr, INTRAVENOUS, NEEDED, 1 dose, Starting on Meg 05/02/24 at 1156, Until Meg 05/02/24 at 1220, Hypotension (titrate to maintain SBP greater than 100), Administer per hypersensitivity/anaphy laxis grading in nursing communication. Start: 04-08-2024 End: 04-10-2024 10 mL, intravenous, As neede d, line care, Starting on Mon04/08/24 at 1521 [...] Start: 03-14-2024 take 1 tablet by sami th once daily traZODone (DESYREL) 300 MG tablet [...] Complications of surgical procedures or medical care (17 sources) Postoperative complication; Translations: [Other postprocedural complications and disorders of genitourinary system] Onset: 04-08-2024 04-08-2024 Episodic E Codes: Fall (1 source) Unspecified fall, initial encounter; Translations: [UNSPECIFIED FALL INITIAL ENCOUNTER] Onset: 05-25-2022 Episodic Endometriosis (1 source) Endometriosis, unspecified; Translations: [ENDOMETRIOSIS UNSPECIFIED] Onset: 08-18-2021 Chronic Esophageal disorders (2 sources) Gastro-esophageal reflux [...] 08-14-2021 Episodic Other aftercare (1 source) Other superintendent terminal (current) drug therapy; Translations: [OTH GREEN CHAIN MARKER CURRENT DRUG THERAPY] Onset: 06-22-2022 Episodic Other aftercare (2 sources) Wound finding; Translations: [Encounter for other specified aftercare] 04-02-2024 Episodic Other connective tissue disease (1 source) Spasm; Translations: [Other muscle spasm] 04-25-2024 Episodic Other endocrine disorders (1 source) Polycystic [...] [Tremor, unspecified] Episodic Other nervous system disorders (3 sources) Postoperative pain ; Translations: [Other acute [...] Preoperative state 03-20-2024 Episodic Residual codes; unclassified (17 sources) History of bilateral salpingo-oophorectom y; 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, bilateral] Onset: 03-28-2024 04-01-2024 Episodic Skin and subcutaneous tissue infections (12 sources) Cellulitis of abdominal wall ; Translations: [...] 10-10-2023 Episodic Coma; stupor; and brain damage (20 sources) Somnolence; Translations: [Loss of consciousness] Onset: 08-06-2021 08-06-2021 Episodic Contraceptive and procreative management (1 source) Tubal ligation status; Translations: [TUBAL LIGATION STATUS] Onset: 10-08-2021 Episodic Disorders of teeth and jaw (20 sources) Toothache; Translations: [Other specified disorders of teeth and supporting structures] Onset: 01-09-2024 01-09-2024 Episodic Epilepsy; convulsions (20 sources) Seizure disorder; Translations: [Epilepsy, unspecified, not intractable, without status epilepticus] Onset: 02-18-2020 Resolved: 04-25-2024 Chronic Epilepsy; convulsions (20 sources) Neurological finding; Translations: [Unspecified convulsions] Onset: 10-19-2021 Resolved: 04-25-2024 Episodic Malaise and fatigue (20 sources) Fatigue; Translations: [Other fatigue] Onset: 01-01-2024 01-01-2024 Episodic Mood disorders (20 sources) Mood disorders; Translations: [DEPRESSION UNSPECIFIED] Onset: 03-03-2022 Resolved: 04-25-2024 03-03-2022 Other aftercare (20 sources) Long-term current use of drug therapy; Translations: [Other superintendent terminal (current) drug therapy] Onset: 01-01-2024 01-01-2024 Episodic Other gastrointestinal disorders (1 source) Diarrhea, unspecified; Translations: [DIARRHEA UNSPECIFIED] Onset: 10-08-2021 Episodic Other liver diseases (1 source) Hepatomegaly, not elsewhere classified; Translations: [HEPATOMEGALY NEC] Onset: 01-19-2022 Episodic Other lower respiratory disease (20 sources) Cough; Translations: [Acute cough] Onset: 01-27-2022 01-27-2022 Episodic Other nervous system disorders (5 sources) Other acute postprocedural pain; Translations: [OTHER ACUTE POSTPROCEDURAL PAIN] Onset: 10-05-2021 Episodic Other screening for suspected conditions (not mental disorders or infectious disease) (20 sources) Suspected disorder; Translations: [Encounter for suspected [...] Spondylosis; intervertebral disc disorders; other back problems (20 sources) Cervicalgia; Translations: [Neck pain] Onset: 08-06-2021 [...] GDLNon AGE GDLN ACOG TESTING Note . [facility] Comment on above: TESTS RESULT FLAG UN ITS REF RANGE LAB Clinician Provided Cytology Information Source.............Vagina No. of containers..01 ThinPrep Vial Age Rachid VINES Becca... FLAG LEGEND: L-Low Normal,H-High Normal,LL-Alert Low,HH-Alert High <-Panic Low,>-Panic High,A-Abnormal,AA-Critical Abnormal Performed at: 01 [facility] [address] [place] [address] Pearl Franco MD, IGP, RFX APTIMA HPV ASCU Note . [facility] Comment on above: TESTS RESULT FLAG UN ITS REF RANGE LAB DIAGNOSIS: 02 NEGATIVE FOR INTRAEPITHELIAL LESION OR MALIGNANCY. Specimen adequacy: 02 Satisfactory for evaluation. No endocervical component is identified. Performed by: Daksha Ncihole Ed Case Manager . 02 Note: Note 02 The Pap [...] <-Panic Low,>-Panic High,A-Abnormal,AA-Critical Abnormal Performed at: [address] [address] Pearl Franco MD, Performed at: = - [facility] [address] [id number] [place] Flaker: Pearl Franco MD, Phone: [phone] Performed at: [facility] [address] [id number] [place] Flaker: Pearl Franco MD, Phone: [phone] [facility] e CBC auto differentialon 03-23 Band form neutrophils/100 WBC (Bld) 3 % [facility] Eosinophils (Bld) [#/Vol] 0.3 10*3/uL [facility] Eosinophils/100 WBC (Bld) 3 % [facility] Erythrocyte distribution width (RBC) [Ratio] 13.7 % 11.5 - 15.0 % [facility] Hematocrit (Bld) [Volume fraction] 32.8 % Low 35 - 47 % [facility] Hemoglobin (Bld) [Mass/Vol] 11.1 g/dL Low 11.7 - 15.5 g/dL [facility] Interpretation and review of laboratory results Abnormal [facility] Lymphocytes (Bld) [#/Vol] 1.2 10*3/uL [facility] Lymphocytes/100 WBC (Bld) 12 % [facility] MCH (RBC) [Entitic mass] 29 pg 27 - 34 pg [facility] MCHC (RBC) [Mass/Vol] 33.8 g/dL 32 - 36 g/dL P [facility] MCV (RBC) [Entitic vol] 86 fL 80 - 100 fL [facility] Monocytes (Bld) [#/Vol] 0.6 10*3/uL [facility] Monocytes/100 WBC (Bld) 6 % [facility] Neutrophils (Bld) [#/Vol] 7.6 10*3/uL High [facility] Platelet mean volume (Bld) [Entitic vol] 7.7 fL 7 - 12 fL [facility] Platelets (Bld) [#/Vol] 225 10*3/uL [facility] Polychromasia LM Ql (Bld) 1+ Abnormal NONE^NONE [facility] RBC (Bld) [#/Vol] 3.82 10*6/uL [facility] Segmented neutrophils/100 WBC (Bld) 76 % [facility] WBC corrected for nucl RBC Auto (Bld) [#/Vol] 9.7 [facility] Comprehensive metabolic pane srikanth 04-10-2024 Albumin [Mass/Vol] 3.3 g/dL 3.2 - 5.3 g/dL [facility] ALP [Catalytic activity/Vol] 80 U/L 39 - 130 U/L [facility] ALT No additional P-5'-P [Catalytic activity/Vol] 39 U/L High 0 - 31 U/L [facility] Anion gap [Moles/Vol] 7 mmol/L 5 - 15 mmol/L [facility] AST [Catalytic activity/Vol] 16 U/L 0 - 41 U/L [facility] Bilirubin [Mass/Vol] 0.3 mg/dL 0.3 - 1 .2 mg/dL [facility] Calcium [Mass/Vol] 9.2 mg/dL 8.5 - 10. 5 mg/dL [facility] Chloride [Moles/Vol] 107 mmol/L 98 - 10 9 mmol/L [facility] CO2 [Moles/Vol] 27 mmol/L 22 - 32 mmol/L [facility] Creatinine [Mass/Vol] 0.55 mg/dL 0.40 - 1.00 mg/dL [facility] Comment on above: METHOD TRACEABLE TO [facility] STANDARD eGFR (CKD-EPI)non-race dependent - PINF [facility] Comment on above: Reported eGFR is based on the CKD-EPI 2020 equation that does not use a race coefficient. Glucose [Mass/Vol] 102 mg/dL High 65 - 99 mg/dL [facility] Interpretation and review of laboratory results Abnormal [facility] Potassium [Moles/Vol] 4.1 mmol/L 3.5 - 5.0 mmol/L [facility] Protein [Mass/Vol] 6.4 g/dL 6.0 - 8.0 g/dL [facility] Sodium [Moles/Vol] 141 mmol/L 134 - 146 mmol/L [facility] Urea nitrogen [Mass/Vol] 9 mg/dL 5 - 23 mg/dL [facility] Bacteria identified Cx Nom ( U)on 04-09-2024 Service comment (Unsp spec) [Interp] URINE RECEIVED WITHOUT PRESERVATIVE [facility] Service comment (Unsp spec) [Interp] 10-50,000 ORGANISMS/mL NORMAL UROGENITAL JANIYA [facility] Basic Metabolic Panelon 03-23 Anion gap [Moles/Vol] 12 mmol/L 5 - 15 mmol/L [facility] Calcium [Mass/Vol] 8.9 mg/dL 8.5 - 10. 5 mg/dL [facility] Chloride [Moles/Vol] 103 mmol/L 98 - 10 9 mmol/L [facility] CO2 [Moles/Vol] 24 mmol/L 22 - 32 mmol/L [facility] Creatinine [Mass/Vol] 0.61 mg/dL 0.40 - 1.00 mg/dL [facility] Comment on above: METHOD TRACEABLE TO [facility] STANDARD eGFR (CKD-EPI)non-race dependent - PINF [facility] Comment on above: Reported eGFR is based on the CKD-EPI 2020 equation that does not use a race coefficient. Glucose [Mass/Vol] 106 mg/dL High 65 - 99 mg/dL [facility] Interpretation and review of laboratory results Abnormal [facility] Potassium [Moles/Vol] 4 mmol/L 3.5 - 5.0 mmol/L [facility] Sodium [Moles/Vol] 139 mmol/L 134 - 146 mmol/L [facility] Urea nitrogen [Mass/Vol] 9 mg/dL 5 - 23 mg/dL [facility] CBC auto differentialon 03-23 Band form neutrophils/100 WBC (Bld) 1 % [facility] Eosinophils (Bld) [#/Vol] 0.8 10*3/uL High [facility] Eosinophils/100 WBC (Bld) 6 % [facility] Erythrocyte distribution width (RBC) [Ratio] 13.5 % 11.5 - 15.0 % [facility] Hematocrit (Bld) [Volume fraction] 32.9 % Low 35 - 47 % [facility] Hemoglobin (Bld) [Mass/Vol] 11.2 g/dL Low 11.7 - 15.5 g/dL [facility] Interpretation and review of laboratory results Abnormal [facility] Lymphocytes (Bld) [#/Vol] 1.5 10*3/uL [facility] Lymphocytes/100 WBC (Bld) 11 % [facility] MCH (RBC) [Entitic mass] 28.8 pg 27 - 34 pg [facility] MCHC (RBC) [Mass/Vol] 34 g/dL 32 - 36 g/dL [facility] MCV (RBC) [Entitic vol] 85 fL 80 - 100 fL [facility] Monocytes (Bld) [#/Vol] 0.5 10*3/uL [facility] Monocytes/100 WBC (Bld) 4 % [facility] Neutrophils (Bld) [#/Vol] 10.6 10*3/uL High [facility] Platelet mean volume (Bld) [Entitic vol] 7.5 fL 7 - 12 fL [facility] Platelets (Bld) [#/Vol] 232 10*3/uL [facility] Polychromasia LM Ql (Bld) 1+ Abnormal NONE^NONE [facility] RBC (Bld) [#/Vol] 3.89 10*6/uL [facility] Segmented neutrophils/100 WBC (Bld) 78 % [facility] WBC corrected for nucl RBC Auto (Bld) [#/Vol] 13.4 High [facility] MRSA DNA SAURABH+probe Ql (Unsp spec)on 04-09-2024 [facility] Mrsa Pcr nasal swabon 2024 MRSA DNA SAURABH+probe Ql (Unsp spec) Negative Negative^Neg ative [facility] APTTon 04-08-2024 aPTT Coag (PPP) [Time] 35 s Pr [facility] Basic Metabolic Panelon 03-23 Anion gap [Moles/Vol] 10 mmol/L 5 - 15 mmol/L [facility] Calcium [Mass/Vol] 9.4 mg/dL 8.5 - 10. 5 mg/dL [facility] Chloride [Moles/Vol] 101 mmol/L 98 - 10 9 mmol/L [facility] CO2 [Moles/Vol] 26 mmol/L 22 - 32 mmol/L [facility] Creatinine [Mass/Vol] 0.61 mg/dL 0.40 - 1.00 mg/dL [facility] Comment on above: METHOD TRACEABLE TO [facility] STANDARD eGFR (CKD-EPI)non-race dependent - PINF [facility] Comment on above: Reported eGFR is based on the CKD-EPI 2020 equation that does not use a race coefficient. Glucose [Mass/Vol] 94 mg/dL 65 - 99 mg/dL [facility] Potassium [Moles/Vol] 4 mmol/L 3.5 - 5.0 mmol/L [facility] Sodium [Moles/Vol] 137 mmol/L 134 - 146 mmol/L [facility] Urea nitrogen [Mass/Vol] 10 mg/dL 5 - 23 mg/dL [facility] C-reactive proteinon 025 CRP [Mass/Vol] 15.4 mg/dL High 0.000 - 0.744 mg/dL [facility] CBC auto differentialon 03-23 Basophils (Bld) [#/Vol] 0.1 10*3/uL [facility] Basophils/100 WBC (Bld) 0.5 % [facility] Eosinophils (Bld) [#/Vol] 0.2 10*3/uL [facility] Eosinophils/100 WBC (Bld) 1.1 % [facility] Erythrocyte distribution width (RBC) [Ratio] 13.4 % 11.5 - 15.0 % [facility] Hematocrit (Bld) [Volume fraction] 37.6 % 35 - 47 % [facility] Hemoglobin (Bld) [Mass/Vol] 12.8 g/dL 11.7 - 15.5 g/dL [facility] Interpretation and review of laboratory results Abnormal [facility] Lymphocytes (Bld) [#/Vol] 1.3 10*3/uL [facility] Lymphocytes/100 WBC (Bld) 6.7 % [facility] MCH (RBC) [Entitic mass] 28.7 pg 27 - 34 pg [facility] MCHC (RBC) [Mass/Vol] 34.1 g/dL 32 - 36 g/dL P [facility] MCV (RBC) [Entitic vol] 84 fL 80 - 100 fL [facility] Monocytes (Bld) [#/Vol] 0.7 10*3/uL [facility] Monocytes/100 WBC (Bld) 3.5 % [facility] Neutrophils (Bld) [#/Vol] 17.2 10*3/uL High [facility] Neutrophils/100 WBC (Bld) 88.2 % [facility] Platelet mean volume (Bld) [Entitic vol] 8.5 fL 7 - 12 fL [facility] Platelets (Bld) [#/Vol] 290 10*3/uL [facility] RBC (Bld) [#/Vol] 4.46 10*6/uL [facility] WBC corrected for nucl RBC Auto (Bld) [#/Vol] 19.6 High [facility] CRP [Mass/Vol]on 04-08-2024 Interpretation and review of laboratory results Abnormal [facility] CT Abdomen and Pelvis W cont rast Pat 04-08-2024 CT ABDOMEN AND PELVIS W CONT [...] Kevin Lezama DO on 04/08/2024 3:35 PM Kyle Calloway MD have personally reviewed the image(s) [...] Kyle Solorio MD on 04/08/2024 4:09 PM [facility] Radiology Study observation (narrative) [facility] Abdomen and Pelvis W cont rast IVOrdered By: Kyle Solorio on 04-08-2024 [facility] Work Phone: ECG 12 leadon 04-08-2024 TR[facility]EMASTERVUE [facility] Laboratory - Microbiology an d Antimicrobial susceptibilityon 04-08-2024 FLUAV+FLUBV RNA SAURABH+probe Ql (Unsp spec) Negative Negative^Neg ative [facility] Lactate (P anuradha) [Moles/Vol]o n 04-08-2024 [facility] Lactate w/ Reflexon 04-08-19 25 Lactate (P anuradha) [Moles/Vol] 0.8 mmol/L 0.4 - 2.0 mmol/L [facility] Comment on above: Result did not trigger repeat Lactate, re-order if needed. Liver panelon 04-08-2024 Albumin [Mass/Vol] 3.9 g/dL 3.2 - 5.3 g/dL [facility] ALP [Catalytic activity/Vol] 88 U/L 39 - 130 U/L [facility] ALT No additional P-5'-P [Catalytic activity/Vol] 59 U/L High 0 - 31 U/L [facility] AST [Catalytic activity/Vol] 26 U/L 0 - 41 U/L [facility] Bilirubin [Mass/Vol] 0.7 mg/dL 0.3 - 1 .2 mg/dL [facility] Bilirubin.direct [Mass/Vol] 0 mg/dL 0.0 - 0.4 mg/dL [facility] Interpretation and review of laboratory results Abnormal [facility] Protein [Mass/Vol] 7.3 g/dL 6.0 - 8.0 g/dL [facility] Magnesiumon 04-08-2024 Magnesium [Mass/Vol] 1.8 mg/dL 1.8 - 2 .6 mg/dL [facility] No Panel Informationon 04-08 [facility] POCT Nursing Urine Macroscop ic UAon 04-08-2024 Bilirubin Ql (U) Negative Negative^Ne g ative [facility] Glucose [Mass/Vol] Negative Negative^ Neg ative mg/dL [facility] Hemoglobin Ql (U) Trace Abnormal Negative^N eg ative [facility] Interpretation and review of laboratory results Abnormal [facility] Ketones (U) [Mass/Vol] Negative Negat manjinder^Neg ative mg/dL [facility] Leukocyte esterase Test strip Ql (U) Negative Negative^Neg ative [facility] Nitrite Ql (U) Negative Negative^Neg ative [facility] pH (U) 7.5 [pH] 5.0 - 8.5 [facility] Protein Ql (U) Trace Abnormal Negative^Neg ative mg/dL [facility] Specific gravity (U) [Rel density] 1.02 1.003 - 1.035 [facility] Urobilinogen Qn (U) 0.2 NINF [facility] Protime & INRon 04-08-2024 INR Coag (PPP) [Relative time] 1.3 {INR} High [facility] Interpretation and review of laboratory results Abnormal [facility] PT Coag (PPP) [Time] 14.7 s High [facility] SARS/FLU A+B/RSV by NAAT/Mol ecular (M4RT Collection Tube)on 04-08-2024 RSV RNA SAURABH+probe Nom (Unsp spec) Negative Negative^Neg ative [facility] SARS-CoV-2 (COVID-19) RNA SAURABH+probe Ql (Resp) Not detected Not Detected^Not Detected [facility] Comment on above: NOTE The Xpert [employer] [...] operators who are performing tests using either [employer] or [employer] systems and is limited to laboratories that [...] specimen repeat. Fact Sheet for Healthcare Providers: https://www.fda.gov/media/041134/download Fact Sheet for Patients: https://www.fda.gov/media/332074/download [facility] Thyroid profile includes TSH FT4on 04-08-2024 Free T4 [Mass/Vol] 0.62 ng/dL 0.61 - 1. 60 ng/dL [facility] TSH Qn 0.54 m[IU]/L [facility] Troponin I, High Sensitivity on 04-08-2024 Troponin I.cardiac High sensitivity method [Mass/Vol] 2 ng/L NINF - 16 ng/L [facility] Troponin I, High Sensitivity 1 Houron 04-08-2024 Troponin I.cardiac High sensitivity method [Mass/Vol] 2 ng/L NINF - 16 ng/L [facility] Troponin I.cardiac High sens itivity method [Mass/Vol]on 04-08-2024 [facility] XR Chest Single viewon 04-08 XR [...] Renetta Andrea MD on 04/08/2024 2:12 PM [facility] Radiology Study observation (narrative) [facility] XR Chest Single viewOrdered By: Renetta Andrea on 04-08-2024 [facility] Work Phone: ECG 12 leadon 03-26-2024 [facility]ASTERVUE [facility] [facility] ABO Rh Repe[place] 03-25-2024 ABO O [facility] Rh Nom (Bld) Positive [facility] Type and screen(includes ind irect ady)on 03-25-2024 ABO O [facility] Rh Nom (Bld) Positive [facility] Respiratory allergy panelon 03-21-2024 A. alternata IgE Qn (S) kU/L NINF - 0.10 kU/L [facility] Comment on above: Class 0: Normal A. fumigatus IgE Qn (S) kU/L NINF - 0.10 kU/L [facility] Comment on above: Class 0: Normal Gibraltarian house dust mite IgE Qn (S) kU/L NINF - 0.10 kU/L [facility] Comment on above: Class 0: Normal [place] grass IgE Qn (S) 0.95 kU/L High NINF - 0.10 kU/L [facility] Comment on above: Class 2:Moderate lev el of Allergy, indicative of stronger ongoing sensitization Boxelder IgE Qn (S) 0.15 kU/L High NINF - 0 .10 kU/L [facility] Comment on above: Class 0/1: Low level of Allergy, ongoing sensitization C. herbarum IgE Qn (S) kU/L NINF - 0.10 kU/L [facility] Comment on above: Class 0: Normal [place] Pollen IgE Qn (S) kU/L NINF - 0.10 kU/L [facility] Comment on above: Class 0: Normal Cat dander IgE Qn (S) 6.53 kU/L High NINF - 0.10 kU/L [facility] Comment on above: Class 3:High level o f Allergy, indicative of high level sensitization Cocklebur IgE Qn (S) 0.14 kU/L High NINF - 0.10 kU/L [facility] Comment on above: Class 0/1: Low level of Allergy, ongoing sensitization Cockroach IgE Qn (S) kU/L NINF - 0.10 kU/L [facility] Comment on above: Class 0: Normal Common Pigweed IgE Qn (S) kU/L NINF - 0.10 kU/L [facility] Comment on above: Class 0: Normal Common Ragweed IgE Qn (S) 0.37 kU/L High NINF - 0.10 kU/L [facility] Comment on above: Class 1:Low level of Allergy, indicative of ongoing sensitization Jennings IgE Qn (S) 0.25 kU/L High NINF - 0.10 kU/L [facility] Comment on above: Class 0/1: Low level of Allergy, ongoing sensitization Dog dander IgE Qn (S) 52.5 kU/L High NINF - 0.10 kU/L [facility] Comment on above: Class 5:Very High le kyara of Allergy,indicative of very high level sensitization house dust mite IgE Qn (S) kU/L NINF - 0.10 kU/L [facility] Comment on above: Class 0: Normal Goosefoot IgE Qn (S) kU/L NINF - 0.10 kU/L [facility] Comment on above: Class 0: Normal IgE Qn 602 [IU]/L High [facility] Interpretation and review of laboratory results Abnormal [facility] Ike grass IgE Qn (S) 0.96 kU/L High NINF - 0.10 kU/L [facility] Comment on above: Class 2:Moderate lev el of Allergy, indicative of stronger ongoing sensitization [place] blue grass IgE Qn (S) 2.55 kU/L High NINF - 0.10 kU/L [facility] Comment on above: Class 2:Moderate lev el of Allergy, indicative of stronger ongoing sensitization [place] Plane IgE Qn (S) kU/L NINF - 0.10 kU/L [facility] Comment on above: Class 0: Normal Marte Elder IgE Qn (S) kU/L NINF - 0.10 kU/L [facility] Comment on above: Class 0: Normal Mountain Juniper IgE Qn (S) kU/L NINF - 0.10 kU/L [facility] Comment on above: Class 0: Normal Mouse urine proteins IgE Qn (S) 0.34 kU/L High NINF - 0.10 kU/L [facility] Comment on above: Class 0/1: Low level of Allergy, ongoing sensitization Mugwort IgE Qn (S) kU/L NINF - 0. 10 kU/L [facility] Comment on above: Class 0: Normal Nettle IgE Qn (S) kU/L NINF - 0.1 0 kU/L [facility] Comment on above: Class 0: Normal P. notatum IgE Qn (S) kU/L NINF - 0.10 kU/L [facility] Comment on above: Class 0: Normal Pecan or [place] IgE Qn (S) 0.17 kU/L High NINF - 0.10 kU/L [facility] Comment on above: Class 0/1: Low level of Allergy, ongoing sensitization Saltwort IgE Qn (S) 0.38 kU/L High NINF - 0 .10 kU/L [facility] Comment on above: Class 1:Low level of Allergy, indicative of ongoing sensitization Sheep [place] IgE Qn (S) kU/L NINF - 0.10 kU/L [facility] Comment on above: Class 0: Normal Silver Birch IgE Qn (S) kU/L NINF - 0.10 kU/L [facility] Comment on above: Class 0: Normal Johan IgE Qn (S) 1.92 kU/L High NINF - 0. 10 kU/L [facility] Comment on above: Class 2:Moderate lev el of Allergy, indicative of stronger ongoing sensitization [place] IgE Qn (S) kU/L NINF - 0.10 kU/L [facility] Comment on above: Class 0: Normal White Elm IgE Qn (S) kU/L NINF - 0.10 kU/L [facility] Comment on above: Class 0: Normal White mulberry IgE Qn (S) kU/L NINF - 0.10 kU/L [facility] Comment on above: Class 0: Normal [place] IgE Qn (S) kU/L NINF - 0.10 kU/L [facility] Comment on above: Class 0: Normal [facility] Pulmonary function test Spir ometry (Flow Volume Loop)Ordered By: Dinorah Cummins on 03-20-2024 [facility] [place] 125on 03-18-2024 Cancer Ag 125 Qn 7 [arb'U]/mL 0 - 35 U/mL [facility] Comment on above: The method used for this test is [employer] DXI chemiluminescent immunoassay. Values obtained by different assay methods cannot be used interchangeably. CBC auto differentialon 02-21 Basophils (Bld) [#/Vol] 0 10*3/uL [facility] Basophils/100 WBC (Bld) 0.6 % [facility] Eosinophils (Bld) [#/Vol] 0.5 10*3/uL High [facility] Eosinophils/100 WBC (Bld) 8.4 % [facility] Erythrocyte distribution width (RBC) [Ratio] 13.6 % 11.5 - 15.0 % [facility] Hematocrit (Bld) [Volume fraction] 40.6 % 35 - 47 % [facility] Hemoglobin (Bld) [Mass/Vol] 13.7 g/dL 11.7 - 15.5 g/dL [facility] Interpretation and review of laboratory results Abnormal [facility] Lymphocytes (Bld) [#/Vol] 1.3 10*3/uL [facility] Lymphocytes/100 WBC (Bld) 23.5 % [facility] MCH (RBC) [Entitic mass] 29.2 pg 27 - 34 pg [facility] MCHC (RBC) [Mass/Vol] 33.7 g/dL 32 - 36 g/dL [facility] MCV (RBC) [Entitic vol] 87 fL 80 - 100 fL [facility] Monocytes (Bld) [#/Vol] 0.3 10*3/uL [facility] Monocytes/100 WBC (Bld) 5.3 % [facility] Neutrophils (Bld) [#/Vol] 3.5 10*3/uL [facility] Neutrophils/100 WBC (Bld) 62.2 % [facility] Platelet mean volume (Bld) [Entitic vol] 8.9 fL 7 - 12 fL [facility] Platelets (Bld) [#/Vol] 233 10*3/uL [facility] RBC (Bld) [#/Vol] 4.67 10*6/uL [facility] WBC corrected for nucl RBC Auto (Bld) [#/Vol] 5.7 [facility] CEAon 03-18-2024 Carcinoembryonic Ag [Mass/Vol] 0.9 ng/mL 0.0 - 3.0 ng/mL [facility] Comment on above: 0.0-3.0 ng/mL FOR NON SMOKERS 0.0-5.0 ng/mL FOR SMOKERS The method used for this test is [employer] DXI chemiluminescent immunoassay. Values obtained by different assay methods cannot be used interchangeably. Cancer Ag 125 Qnon [facility] Cancer Ag 19-9 Qnon 03-18-19 25 [facility] Cancer antigen 19-9on 2024 Cancer Ag 19-9 Qn U/mL 0.0 - 35.0 U/mL [facility] Comment on above: The method used for this test is [employer] DXI chemiluminescent immunoassay. Values obtained by different assay methods cannot be used interchangeably. Carcinoembryonic Ag [Mass/Vo l]on 03-18-2024 [facility] Comprehensive metabolic pane srikanth 03-18-2024 Albumin [Mass/Vol] 4.3 g/dL 3.2 - 5.3 g/dL [facility] ALP [Catalytic activity/Vol] 51 U/L 39 - 130 U/L [facility] ALT No additional P-5'-P [Catalytic activity/Vol] 21 U/L 0 - 31 U/L [facility] Anion gap [Moles/Vol] 10 mmol/L 5 - 15 mmol/L [facility] AST [Catalytic activity/Vol] 15 U/L 0 - 41 U/L [facility] Bilirubin [Mass/Vol] 0.5 mg/dL 0.3 - 1 .2 mg/dL [facility] Calcium [Mass/Vol] 9.2 mg/dL 8.5 - 10. 5 mg/dL [facility] Chloride [Moles/Vol] 104 mmol/L 98 - 10 9 mmol/L [facility] CO2 [Moles/Vol] 27 mmol/L 22 - 32 mmol/L [facility] Creatinine [Mass/Vol] 0.62 mg/dL 0.40 - 1.00 mg/dL [facility] Comment on above: METHOD TRACEABLE TO [facility] STANDARD eGFR (CKD-EPI)non-race dependent - PINF [facility] Comment on above: Reported eGFR is based on the CKD-EPI 2020 equation that does not use a race coefficient. Glucose [Mass/Vol] 88 mg/dL 65 - 99 mg/dL [facility] Interpretation and review of laboratory results Abnormal [facility] Potassium [Moles/Vol] 3.4 mmol/L Low 3.5 - 5.0 mmol/L [facility] Protein [Mass/Vol] 6.6 g/dL 6.0 - 8.0 g/dL [facility] Sodium [Moles/Vol] 141 mmol/L 134 - 146 mmol/L [facility] Urea nitrogen [Mass/Vol] 12 mg/dL 5 - 23 mg/dL [facility] CNPNon 02-22-2024 CNPN Telephone ([facility]) ---- APRIL NICHOLSON ([id number]) 1995 F Date Time Provider Department 02/22/24 SAGAR BARTH [facility] During your visit today, we recorded the following information about you: Jannette Mcleod RN 02/22/2024 12:04 PM Signed Prior Authorization submitted via [employer] on 02/22/2024: Insurance: [place] Medication: Zolmitriptan Chong Code: [id number] Awaiting Response Jannette Mcleod RN 03/14/2024 2:23 [...] Date Reviewed: 01/22/2024 Reviewed by: Raiza Morales APRN.CHILD NURSE - Fully Assessed Reason for Visit: Insurance Authorization [[id number]] Cmt: Zolmitriptan Prescriptions as of 03/14/2024 - ZOLMitriptan (ZOMIG) 5 mg nasal spray Use 1 [place] in the nose as needed at onset [...] Status:Closed by JANNETTE MCLEOD on 02/22/24 Normal [facility] Pathology Request for Lab Co rpon 02-16-2024 Pathology Request for Lab Lilly Normal [facility] Comment on above: Order Comment: PATHO LOGY GI SPECIMEN Result Comment: See report. Scanned copy available in EMR. PERFORMED BY: [place] [address] PATHOLOGIST MEDICAL DIRECTOR/HEAD TEAM PHYSICIAN PALOMO JOYCE M.D. Performed By: #### P ATH TO [facility] #### [address] Veronica 01-29-2024 CNPN Telephone ([facility]) ---- APRIL NICHOLSON ([id number]) 1995 F Date Time Provider Department 01/29/24 SAGAR BARTH [facility] During your visit today, we recorded the following information about you: Kelsey aPtel 01/29/2024 10:53 AM Signed Name of Caller: nicky Relationship to patient: pharmacy Last visit in this department: 09/19/2023 Reason for Call: Other : need to verify quantity on zolmitriptan. Callback number: [phone] Amy Shrestha MA 01/29/2024 12:06 PM Signed Per last Rx on 11/10/2023: Disp Refills Start End ZOLMitriptan (ZOMIG) 5 mg nasal spray 10 Each 5 11/10/2023 -- Sig: Use 1 [place] in the nose as needed at onset of migraine headache. If symptoms persist or return, may repeat dose in other nostril after 2 hours. Maximum of 2 sprays per 24 hours I called the pharmacy and hey need to know if Provider would like to dispense #6 or #12 cartridges. They do not come in 10. Please advise. Thank you Saagr Barth APRN.CNP 01/30/2024 2:59 PM Addendum Dispense 12 pls. I rewrote the rx. GABBI Johnston Koli, APRN.CNP 01/30/2024 2:59 PM Signed The following approved medication requests have been transmitted electronically. Requested Prescriptions Signed Prescriptions Disp Refills ZOLMitriptan (ZOMIG) 5 mg nasal spray 12 Each 5 Sig: Use 1 [place] in the nose as needed at onset [...] an (ZOMIG) 5 mg nasal sprayUse 1 [place] in the nose as needed at onset of migraine headache. If symptoms persist or return, may repeat dose in other nostril after 2 hours. Maximum of 2 sprays per 24 hoursDisp: 12 EachRfl: 5 Prescriptions as of 02/01/2024 - ZOLMitriptan (ZOMIG) 5 mg nasal spray Use 1 [place] in the nose as needed at onset [...] 5 01/30/2024 Route: NASAL Sig: Use 1 [place] in the nose as needed at onset of migraine headache. If symptoms persist or return, may repeat dose in other nostril after 2 hours. Maximum of 2 sprays per 24 hours Medications Discontinued During This Encounter Prescriptions - ZOLMitriptan (ZOMIG) 5 mg nasal spray (Discontinued) Use 1 [place] in the nose as needed at onset of migraine headache. If symptoms persist or return, may repeat dose in other nostril after 2 hours. Maximum of 2 sprays per 24 hours Encounter Status:Closed by KELSEY PATEL on 01/30/24 [facility] CNOVon 01-22-2024 CNOV Office Visit ([facility]) ---- NICHOLSONAPRIL ROGERS ([id number]) 1995 F Date Time Provider Department 01/22/24 2:30 PM RAIZA MORALES [facility] During your visit today, we recorded the following information about you: Raiza Morales APRN.[facility] 01/22/2024 1:57 PM Signed Headache Center Infusion [...] Lymph 1.00 - 4.00 k/uL 0.84 Abs [place] <0.87 k/uL 0.06 Abs Eosin <0.46 k/uL [...] ZOLMitriptan (ZOMIG) 5 mg nasal sprayUse 1 [place] in the nose as needed at onset [...] and clear, coherent, and relevant. Short and halfway memory, cognition and general fund of knowledge [...] IV fluids (more content not included)... Normal [facility] CNOVon 09-19-2023 CNOV Office Visit ([facility]) ---- APRIL NICHOLSON ([id number]) 1995 F Date Time Provider Department 09/19/23 2:30 PM SAGAR BARTH [facility] During your visit today, we recorded the following information about you: Temperature Pulse Blood pressure Weight 99.1 degrees 80/minute 115/81 118.8 kg Height 1.584 m Sagar Barth APRN.CHILD NURSE 09/19/2023 3:12 PM Signed Outpatient Headache [...] XL, Qudexy) Anti-Depressant and Antipsychotic Amitriptyline (Elavil) [place] (Eskalith, Lithobid) Nortriptyline (Pamelor, Aventyl) Anti-Migraine Dihydroergotamine [...] ZOLMitriptan (ZOMIG) 5 mg nasal sprayUse 1 [place] in the nose as needed at onset [...] these with the patient: yes Sagar Barth APRN.[facility] HEADACHE SCORES: 03/22/2023 07/10/2023 09/19/2023 Headache Questions ER visits since last office visit: 6 8 6 Hospital stays since last office visit 2 1 Limited ADL (more content not included)... Normal [facility] CNOVon 08-18-2023 CN Office Visit ([facility]) ---- APRIL NICHOLSON ([id number]) 1995 F Date Time Provider Department 08/18/23 9:30 AM [facility] During your visit today, we recorded [...] to follow-up with epilepsy clinic -Follow-up with aSgar in 1 month Curtis Lepe PA-C Headache Section [facility] August 18, 2023 Curtis Lepe PA-C 08/18/2023 2:39 PM Signed You received a greater occipital nerve block (GONB) today You may feel sore tomorrow at the site of the injection. You may use heat or ice for discomfort and gentle stretching. This should resolve in 24-36 hours. Greater Occipital Nerve Block (GONB) Article in [place] Headache [employer] Journal By: Molina Barraza MD Many patients with chronic headache report that their (more content not included)... 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 Short and halfway memory, cognition and general fund of knowledge [...] which included preparing to see the patient, [id number] patient care, completing clinical documentation, obtaining and/or reviewing separately obtained history, performing a medically appropriate examination, counseling and educating the patient/family/health and social care teacher, and ordering medications, tests, or procedures. Suzan Driver APRN.[facility] Headache Section [facility] Suzan Driver APRN.CNP 04/14/2023 10:49 AM Signed Follow up/ discharge plan: f/u in 3 months Start aimovig this weekend Aimovig Information Aimovig is a CGRP monoclonal antibody (MAB). CGRP is a substance in the brain that plays a chong role in causing migraine. Aimovig was specifically developed t (more content not included)... Normal [facility] CNPNon 04-13-2023 [facility] ---- APRIL NICHOLSON ([id number]) 1995 F Date Time Provider Department 04/13/23 SAGAR BARTH [facility] During your visit today, we [...] (ZOMIG) 5 mg nasal spray Use 1 [place] in the nose as needed at onset [...] Encounter Status:Closed by GETACHEW CANCINO on 04/13/23 [facility] CNOVon 04-12-2023 CNOV Office Visit ([facility]) ---- APRIL NICHOLSON ([id number]) 1995 F Date Time Provider Department 04/12/23 1:30 PM [facility]ZAN DRIVER [facility] During your visit today, we recorded the following information about you: Suzan Driver APRN.[facility] 04/12/2023 11:52 AM Signed General Headache Education [...] much light. These can be obtained at [employer] or [employer]: see list below. 2. Limit use of acute treatments (vqgv-gra-kxrqbeb medications, triptans, etc.) to no more than [...] and quiet environment. Relax and reduce stress. Dlkdihr2Kxgrt is a free juan a that can instruct you on some simple relaxtion and breathing techniques. Http://Collax is a free website that provides teaching videos on relaxation. Also, there are many apps that can be downloaded for ?mindful? relaxation. An juan a called [employer]GA N[employer]TravelSite.com will help walk you through mindfulness. Cold [...] epilepsy i (more content not included)... [facility] ---- APRIL NICHOLSON ([id number]) 1995 F Date Time Provider Department 03/27/23 ANGELY COTTON [facility] During your visit today, we recorded the following information about you: Angely Cotton RN 03/27/2023 1:05 PM Signed [facility] received prescription(s) for Aimovig 70MG/ML auto-injectors . Benefits investigation was conducted, indicating that a prior authorization is required. PA was initiated and pending review through [employer]. All pertinent clinical information was submitted to insurance. [facility] Chong: [id number] Ordering Provider: Sagar Barth APRN.Angely Schaefer RN [facility] P: , F: Angely Cotton RN 04/03/2023 12:43 PM Signed Ambulatory Pharmacy Prior Authorization Note Provider Intervention Required?: No- Pharmacy completed on your behalf. Rx Plan: Medicaid O ([facility]) Drug: Aimovig 70MG/ML auto-injectors Cover My Meds Chong: [id number] Determination: Approved Prior Authorization/Case #: n/a Prior [...] refills. Prescriptions will now be processed through [facility] for determination of next steps. For questions relating to this submission, please contact [facility] at [phone] Allergies As of Date: 03/27/2023 Noted Allergy [...] Date Reviewed: 03/23/2023 Reviewed by: Sagar Barth APRN.CHILD NURSE - Fully Assessed Reason for Visit: Insurance Authorization [[id number]] Cmt: Aimovig 70MG/ML auto-injectors Prescriptions as of 04/03/2023 - Phentermine HCl 37.5 mg tablet take 1 tablet by mouth every morning before meals - erenumab-aooe (AIMOVIG AUTOINJECTOR) 70 mg/mL auto-injector Inject 1 mL subcutaneously once every month. Do not shake. - ZOLMitriptan (ZOMIG) 5 mg nasal spray Use 1 [place] in the nose as needed at onset [...] Status:Closed by ANGELY COTTON on 04/03/23 Normal [facility] BLOOD GASES BTYon 06-20-2022 02 MODE ROOM AIR Normal [facility] Comment on above: Performed By: #### B MP #### [facility] [address] [place] [address] Dr. Ibis Jimenez ALLENS TEST Positive Normal [facility] Comment on above: Performed By: #### B MP #### [facility] [address] [address] [address] Ibis Jimenez Base excess Calc (Bld) [Moles/Vol] -1.6000 mmol/L Normal -2.0-2.0 [facility] Comment on above: Performed By: #### B MP #### [facility] [address] [place] [address] Dr. Ibis Jimenez BIPAP PRESSURE Normal [facility] Comment on above: Performed By: #### B MP #### [facility] [address] [address] [address] Ibis Jimenez CPAP [facility] Comment on above: Performed By: #### B MP #### [facility] [address] [place] [address] Dr. Ibis Jimenez FIO2 [facility] Comment on above: Performed By: #### B MP #### [facility] [address] [place] [address] Dr. Ibis Jimenez HCO3 (Bld) [Moles/Vol] 23.8 mmol/L Normal 22.0-26.0 [facility] Comment on above: Performed By: #### B MP #### [facility] [address] [place] [address] Dr. Ibis Jimenez LPM [facility] Comment on above: Performed By: #### B MP #### [facility] [address] [place] [address] Dr. Ibis Jimenez MINUTE VOLUME Normal [facility] Comment on above: Performed By: #### B MP #### [facility] [address] [place] [address] Dr. Ibis Jimenez Oxygen (Bld) [Partial pressure] 75.5 mm[Hg] Critically low 80.0-100.0 [facility] Comment on above: Performed By: #### B MP #### [facility] [address] [place] [address] Dr. Ibis Jimenez Oxygen saturation in Blood 95.8 % Normal 95.0-100.0 [facility] Comment on above: Performed By: #### B MP #### [facility] [address] [place] [address] Dr. Ibis Jimenez PCO2 41.8 mmHg Normal 35.0-45.0 [facility] Comment on above: Performed By: #### B MP #### [facility] [address] [place] [address] Dr. Ibis Jimenez PEEP [facility] Comment on above: Performed By: #### B MP #### [facility] [address] [place] [address] Dr. Ibis Jimenez pH (Bld) 7.363 [pH] Normal 7.350-7.450 [facility] Comment on above: Performed By: #### B MP #### [facility] [address] [place] [address] Dr. Ibis Jimenez [facility] Comment on above: Performed By: #### B MP #### [facility] [address] [place] [address] Dr. Ibis Jimenez PS [facility] Comment on above: Performed By: #### B MP #### [facility] [address] [place] [address] Dr. Ibis Jimenez PUNCTURE SITE LR [facility] Comment on above: Performed By: #### B MP #### [facility] [address] [place] [address] Dr. Ibis Jimenez [facility] Comment on above: Performed By: #### B MP #### [facility] [address] [place] [address] Dr. Ibis Jimenez [facility] Comment on above: Performed By: #### B MP #### [facility] [address] [place] [address] Dr. Ibis Jimenez [facility] Comment on above: Performed By: #### B MP #### [facility] [address] [place] [address] Dr. Ibis Jimenez CBC AUTO DIFFon 06-20-2022 BASO # 0.0 103/ul Normal 0.0-0.1 [facility] Comment on above: Performed By: #### A CET, SALYC #### [facility] [address] [place] [address] Dr. Ibis Jimenez Basophils/100 WBC (Bld) 0.5 % Normal 0.2-2.0 [facility] Comment on above: Performed By: #### A CET, SALYC #### [facility] [address] [place] [address] Dr. Ibis Jimenez EO # 0.3 103/ul Normal 0.0-0.7 [facility] Comment on above: Performed By: #### A CET, SALYC #### [facility] [address] [place] [address] Dr. Ibis Jimenez Eosinophils/100 WBC (Bld) 4.2 % Normal 0.9-7.0 [facility] Comment on above: Performed By: #### A CET, SALYC #### [facility] [address] [place] [address] Dr. Ibis Jimenez Erythrocyte distribution width (RBC) [Ratio] 13.2 % Normal 11.0-15.0 [facility] Comment on above: Performed By: #### A CET, SALYC #### [facility] [address] [place] [address] Dr. Ibis Jimenez Hematocrit (Bld) [Volume fraction] 36.5 % Normal 36.0-48.0 [facility] Comment on above: Performed By: #### A CET, SALYC #### [facility] [address] [place] [address] Dr. Ibis Jimenez Hemoglobin (Bld) [Mass/Vol] 11.7 g/dL Critically low 12.0-16.0 [facility] Comment on above: Performed By: #### A CET, SALYC #### [facility] [address] [place] [address] Dr. Ibis Jimenez IG # 0.05 10e3/ul Critically high 0.00-0.03 [facility] Comment on above: Performed By: #### A CET, SALYC #### [facility] [address] [place] [address] Dr. Ibis Jimenez IG % 0.8 % Critically high 0.0-0.5 [facility] Comment on above: Performed By: #### A CET, SALYC #### [facility] [address] [place] [address] Dr. Ibis Jimenez LYMPH # 1.7 103/ul Normal 1.2-3.8 [facility] Comment on above: Performed By: #### A CET, SALYC #### [facility] [address] [place] [address] Dr. Ibis Jimenez Lymphocytes/100 WBC (Bld) 26.9 % Normal 20.5-60.0 [facility] Comment on above: Performed By: #### A CET, SALYC #### [facility] [address] [place] [address] Dr. Ibis Jimenez MANUAL DIFF REQ NO Normal [facility] Comment on above: Performed By: #### A CET, SALYC #### [facility] [address] [place] [address] Dr. Ibis Jimenez MCH (RBC) [Entitic mass] 28.7 pg Normal 26.7-34.0 [facility] Comment on above: Performed By: #### A CET, SALYC #### [facility] [address] [place] [address] Dr. Ibis Jimenez MCHC (RBC) [Mass/Vol] 32.1 g/dL Normal 29.9-35.2 [facility] Comment on above: Performed By: #### A CET, SALYC #### [facility] [address] [place] [address] Dr. Ibis Jimenez MCV (RBC) [Entitic vol] 89.7 fL Normal 81.0-99.0 [facility] Comment on above: Performed By: #### A CET, SALYC #### [facility] [address] [place] [address] Dr. Ibis Jimenez MONO # 0.6 103/ul Normal 0.3-0.8 [facility] Comment on above: Performed By: #### A CET, SALYC #### [facility] [address] [place] [address] Dr. Ibis Jimenez Monocytes/100 WBC (Bld) 8.9 % Normal 1.7-12.0 [facility] Comment on above: Performed By: #### A CET, SALYC #### [facility] [address] [place] [address] Dr. Ibis Jimenez NEUT # 3.8 103/ul Normal 1.4-6.5 [facility] Comment on above: Performed By: #### A CET, SALYC #### [facility] [address] [place] [address] Dr. Ibis Jimenez Neutrophils/100 WBC (Bld) 58.7 % Normal 43.0-75.0 [facility] Comment on above: Performed By: #### A CETBEEYC #### [facility] [address] [place] [address] Dr. Ibis Jimenez Platelet mean volume (Bld) [Entitic vol] 9.3 fL Critically low 9.5-13.5 [facility] Comment on above: Performed By: #### A CET SALYC #### [facility] [address] [place] [address] Dr. Ibis Jimenez PLT 188 103/ul Normal 150-450 [facility] Comment on above: Performed By: #### A CET SALYC #### [facility] [address] [place] [address] Dr. Ibis Jimenez RBC 4.07 106/ul Critically low 4.20-5.40 [facility] Comment on above: Performed By: #### A CET SALYC #### [facility] [address] [place] [address] Dr. Ibis Jimenez WBC 6.4 103/ul Normal 4.0-11.0 [facility] Comment on above: Performed By: #### A RYAN SALYC #### [facility] [address] [place] [address] Dr. Ibis Jimenez DRUG SCREEN RAPID (URINE)on 06-20-2022 AMP Negative Normal NEGATIVE [facility] Comment on above: Performed By: #### B MP #### [facility] [address] [place] [address] Dr. Ibis Jimenez BAR Positive Abnormal NEGATIVE [facility] Comment on above: Performed By: #### B MP #### [facility] [address] [place] [address] Dr. Ibis Jimenez BUP Negative Normal NEGATIVE [facility] Comment on above: Performed By: #### B MP #### [facility] [address] [place] [address] Dr. Ibis Jimenez BZO Positive Abnormal NEGATIVE [facility] Comment on above: Performed By: #### B MP #### [facility] [address] [place] [address] Dr. Ibis Jimenez SEMAJ Negative Normal NEGATIVE [facility] Comment on above: Performed By: #### B MP #### [facility] [address] [place] [address] Dr. Ibis Jimenez CUT-OFFS SEE BELOW Normal [facility] Comment on above: Result Comment: AMP [...] ng/mL Performed By: #### B MP #### [facility] [address] [place] [address] Dr. Ibis Jimenez DRUG CUT HEADER DRUG CLASS TEST SYSTEM CUT-OFF CONCENTRATIONS ARE FOLLOWS: Normal [facility] Comment on above: Performed By: #### B MP #### [facility] [address] [place] [address] Dr. Ibis Jimenez mAMP Negative Normal NEGATIVE [facility] Comment on above: Performed By: #### B MP #### [facility] [address] [place] [address] Dr. Ibis Jimenez MTD Negative Normal NEGATIVE [facility] Comment on above: Performed By: #### B MP #### [facility] [address] [place] [address] Dr. Ibis Jimenez OPI Negative Normal NEGATIVE [facility] Comment on above: Performed By: #### B MP #### [facility] [address] [place] [address] Dr. Ibis Jimenez OXY Negative Normal NEGATIVE [facility] Comment on above: Performed By: #### B MP #### [facility] [address] [place], [place] [id number] Dr. Ibis Jimenez PCP Negative Normal NEGATIVE [facility] Comment on above: Performed By: #### B MP #### [facility] [address] [place] [address] Dr. Ibis Jimenez PPX Negative Normal NEGATIVE [facility] Comment on above: Performed By: #### B MP #### [facility] [address] [place] [address] Dr. Ibis Jimenez TCA Positive Abnormal NEGATIVE [facility] Comment on above: Performed By: #### B MP #### [facility] [address] [place] [address] Dr. Ibis Jimenez THC Positive Abnormal NEGATIVE [facility] Comment on above: Performed By: #### B MP #### [facility] [address] [place] [address] Dr. bIis Jimenez ER URINE PROFILEon 3 Bilirubin Ql (U) Negative Normal NEGATIVE [facility] Comment on above: Performed By: #### A CET, SALYC #### [facility] [address] [place] [address] Dr. Ibis Jimenez Clarity (U) CLEAR Normal CLEAR [facility] Comment on above: Performed By: #### A CET, SALYC #### [facility] [address] [place] [address] Dr. Ibis Jimenez Color (U) YELLOW Normal YELLOW [facility] Comment on above: Performed By: #### A CET, SALYC #### [facility] [address] [place] [address] Dr. Ibis Jimenez ERUSYLVAIN A micrscopic examination will be performed if indicated. Normal [facility] Comment on above: Performed By: #### A CET, SALYC #### [facility] [address] [place] [address] Dr. Ibis Jimenez Glucose Ql (U) Negative Normal NEGATIVE [facility] Comment on above: Performed By: #### A CET, SALYC #### [facility] [address] [place] [address] Dr. Ibis Jimenez Hemoglobin Ql (U) Negative Normal NEGATIVE [facility] Comment on above: Performed By: #### A CET, SALYC #### [facility] [address] [place] [address] Dr. Ibis Jimenez Ketones Ql (U) Negative Normal NEGATIVE [facility] Comment on above: Performed By: #### A CET, SALYC #### [facility] [address] [place] [address] Dr. Ibis Jimenez LEUKOCYTES Negative Normal NEGATIVE [facility] Comment on above: Performed By: #### A CET, SALYC #### [facility] [address] [place] [address] Dr. Ibis Jimenez Nitrite Ql (U) Negative Normal NEGATIVE [facility] Comment on above: Performed By: #### A CET, SALYC #### [facility] [address] [place] [address] Dr. Ibis Jimenez pH (U) 5.0 [pH] Normal 5-9 [facility] Comment on above: Performed By: #### A CET, SALYC #### [facility] [address] [place] [address] Dr. Ibis Jimenez SPEC GRAVITY >=1.030 Abnormal 1.005-<=1.02 5 [facility] Comment on above: Performed By: #### A CET, SALYC #### [facility] [address] [place] [address] Dr. Ibis Jimenez UA PROTEIN Negative Normal NEGATIVE/ TRACE [facility] Comment on above: Performed By: #### A CET, SALYC #### [facility] [address] [place] [address] Dr. Ibis Jimenez UR MICRO IND NOT INDICATED Normal [facility] Comment on above: Performed By: #### A CET, SALYC #### [facility] [address] [place] [address] Dr. Ibis Jimenez Urobilinogen Qn (U) 0.2 {Dinorah'U}/dL Normal 0.2 - 1. 0 [facility] Comment on above: Performed By: #### A CET, SALYC #### [facility] [address] [place] [address] Dr. Ibis Jimenez PROF CHEM 8 (BAS METB)on Anion gap [Moles/Vol] 13.1 mmol/L Normal [facility] Comment on above: Performed By: #### M DAVID #### [facility] [address] [address] [address] Ibis Jimenez Calcium [Mass/Vol] 8.3 mg/dL Critically low 8.5-10.1 [facility] Comment on above: Performed By: #### M DAVID #### [facility] [address] [address] [address] Ibis Jimenez Chloride [Moles/Vol] 109 mmol/L Critically high 98-107 [facility] Comment on above: Performed By: #### M DAVID #### [facility] [address] [place] [address] Dr. Ibis Jimenez CO2 [Moles/Vol] 25.7 mmol/L Normal 21.0-32.0 [facility] Comment on above: Performed By: #### M DAVID #### [facility] [address] [address] [address] Ibis Jimenez Creatinine [Mass/Vol] 0.82 mg/dL Normal 0.55-1.02 [facility] Comment on above: Performed By: #### M DAVID #### [facility] [address] [place] [address] Dr. Ibis Jimenez EGFR-AF ALGERIAN >60 Normal >=60 [facility] Comment on above: Performed By: #### M DAVID #### [facility] [address] [place] [address] Dr. Ibis Jimenez EGFR-NON AF ALGERIAN >60 Normal >=60 [facility] Comment on above: Performed By: #### M DAVID #### [facility] [address] [address] [address] Ibis Jimenez Glucose [Mass/Vol] 95 mg/dL Normal 74-106 [facility] Comment on above: Performed By: #### M DAVID #### [facility] [address] [address] [address] Ibis Jimenez Potassium [Moles/Vol] 3.8 mmol/L Normal 3.5-5.1 [facility] Comment on above: Performed By: #### M DAVID #### [facility] [address] [place] [address] Dr. Ibis Jimenez Sodium [Moles/Vol] 144 mmol/L Normal 136-145 [facility] Comment on above: Performed By: #### M DAVID #### [facility] [address] [address] [address] Ibis Jimenez Urea nitrogen [Mass/Vol] 16.0 mg/dL Normal 7.0-18.0 [facility] Comment on above: Performed By: #### M DAVID #### [facility] [address] [place] [address] Dr. Ibis Jimenez Urea nitrogen/Creatinine [Mass ratio] 19.5 mg/mg Normal [facility] Comment on above: Performed By: #### M DAVID #### [facility] [address] [place] [address] Dr. Ibis Jimenez ACETAMINOPHENon 06-19-2022 Acetaminophen [Mass/Vol] ug/mL Critically low 10.0-30.0 [facility] Comment on above: Performed By: #### KORI Garcia CET #### [facility] [address] [place] [address] Dr. Ibis Jimenez DRUG SCREEN RAPID (URINE)on 06-19-2022 AMP Negative Normal NEGATIVE [facility] Comment on above: Performed By: #### M DAVID #### [facility] [address] [place] [address] Dr. Ibis Jimenez BAR Positive Abnormal NEGATIVE [facility] Comment on above: Performed By: #### M DAVID #### [facility] [address] [place] [address] Dr. Ibis Jimenez BUP Negative Normal NEGATIVE [facility] Comment on above: Performed By: #### M DAVID #### [facility] [address] [place] [address] Dr. Ibis Jimenez BZO Positive Abnormal NEGATIVE [facility] Comment on above: Performed By: #### M DAVID #### [facility] [address] [place] [address] Dr. Ibis Jimenez SEMAJ Negative Normal NEGATIVE [facility] Comment on above: Performed By: #### M DAVID #### [facility] [address] [place] [address] Dr. Ibis Jimenez CUT-OFFS SEE BELOW Normal [facility] Comment on above: Result Comment: AMP [...] ng/mL Performed By: #### M DAVID #### [facility] [address] [place] [address] Dr. Ibis Jimenez DRUG CUT HEADER DRUG CLASS TEST SYSTEM CUT-OFF CONCENTRATIONS ARE FOLLOWS: Normal [facility] Comment on above: Performed By: #### M DAVID #### [facility] [address] [place] [address] Dr. Ibis Jimenez mAMP Negative Normal NEGATIVE [facility] Comment on above: Performed By: #### M DAVID #### [facility] [address] [place] [address] Dr. Ibis Jimenez MTD Negative Normal NEGATIVE [facility] Comment on above: Performed By: #### M DAVID #### [facility] [address] [place] [address] Dr. Ibis Jimenez OPI Positive Abnormal NEGATIVE [facility] Comment on above: Performed By: #### M DAVID #### [facility] [address] [place] [address] Dr. Ibis Jimenez OXY Negative Normal NEGATIVE [facility] Comment on above: Performed By: #### M DAVID #### [facility] [address] [place] [address] Dr. Ibis Jimenez PCP Negative Normal NEGATIVE [facility] Comment on above: Performed By: #### M DAVID #### [facility] [address] [place] [address] Dr. Ibis Jimenez PPX Negative Normal NEGATIVE [facility] Comment on above: Performed By: #### M DAVID #### [facility] [address] [address] [address] Ibis Jimenez TCA Negative Normal NEGATIVE [facility] Comment on above: Performed By: #### M DAVID #### [facility] [address] [place] [address] Dr. Ibis Jimenez THC Positive Abnormal NEGATIVE [facility] Comment on above: Performed By: #### M DAVID #### [facility] [address] [place] [address] Dr. Ibis Jimenez ER URINE PROFILEon 3 Bilirubin Ql (U) Negative Normal NEGATIVE [facility] Comment on above: Performed By: #### M DAVID #### [facility] [address] [place] [address] Dr. Ibis Jimenez Clarity (U) CLEAR Normal CLEAR [facility] Comment on above: Performed By: #### M DAVID #### [facility] [address] [place] [address] Dr. Ibis Jimenez Color (U) YELLOW Normal YELLOW [facility] Comment on above: Performed By: #### M DAVID #### [facility] [address] [place] [address] Dr. Ibis Jimenez ERUSYLVAIN A micrscopic examination will be performed if indicated. Normal [facility] Comment on above: Performed By: #### M DAVID #### [facility] [address] [place] [address] Dr. Ibis Jimenez Glucose Ql (U) Negative Normal NEGATIVE [facility] Comment on above: Performed By: #### M DAVID #### [facility] [address] [place] [address] Dr. Ibis Jimenez Hemoglobin Ql (U) TRACE-INTACT Abnormal NEGATIVE [facility] Comment on above: Performed By: #### M DAVID #### [facility] [address] [place] [address] Dr. Ibis Jimenez Ketones Ql (U) Negative Normal NEGATIVE [facility] Comment on above: Performed By: #### M DAVID #### [facility] [address] [place] [address] Dr. Ibis Jimenez LEUKOCYTES Negative Normal NEGATIVE [facility] Comment on above: Performed By: #### M DAVID #### [facility] [address] [place] [address] Dr. Ibis Jimenez Nitrite Ql (U) Negative Normal NEGATIVE [facility] Comment on above: Performed By: #### M DAVID #### [facility] [address] [place] [address] Dr. Ibis Jimenez pH (U) 6.0 [pH] Normal 5-9 [facility] Comment on above: Performed By: #### M DAVID #### [facility] [address] [place] [address] Dr. Ibis Jimenez Protein (U) [Mass/Vol] 30 mg/dL Abnormal NEGAT MANJINDER/ TRACE [facility] Comment on above: Performed By: #### M DAVID #### [facility] [address] [place] [address] Dr. Ibis Jimenez SPEC GRAVITY 1.025 Normal 1.005-<=1.[address] [place] [address] Comment on above: Performed By: #### M DAVID #### [facility] [address] [place] [address] Dr. Ibis Jimenez UR MICRO IND INDICATED Normal [facility] Comment on above: Performed By: #### M DAVID #### [facility] [address] [place] [address] Dr. Ibis Jimenez Urobilinogen Qn (U) 0.2 {Dinorah'U}/dL Normal 0.2 - 1. 0 [facility] Comment on above: Performed By: #### M DAVID #### [facility] [address] [address] [address] Ibis Jimenez ETHANOL (BLD ALC)on 06-20-19 ALC NOTE NOTE: 80 mg/dl is the legal limit for a blood alcohol level Normal [facility] Comment on above: Performed By: #### A MM #### [facility] [address] [address] [address] Ibis Jimenez Ethanol [Mass/Vol] mg/dL Normal [facility] Comment on above: Performed By: #### A MM #### [facility] [address] [place] [address] Dr. Ibis Jimenez POINT OF CARE GLUCOSEon 05-23 Glucose [Mass/Vol] 88 mg/dL Normal 74-106 [facility] Comment on above: Performed By: #### C VDTBH #### [facility] [address] [place] [address] Dr. Ibis Jimenez URon 06-19-2022 , QUAL Negative Normal NEGATIVE [facility] Comment on above: Performed By: #### M DAVID #### [facility] [address] [address] [address] Ibis Jimenez PROF CHEM 8 (BAS METB)on Anion gap [Moles/Vol] 12.6 mmol/L Normal [facility] Comment on above: Performed By: #### A MM #### [facility] [address] [place] [address] Dr. Ibis Jimenez Calcium [Mass/Vol] 8.4 mg/dL Critically low 8.5-10.1 [facility] Comment on above: Performed By: #### A MM #### [facility] [address] [place] [address] Dr. Ibis Jimenez Chloride [Moles/Vol] 107 mmol/L Normal 98-107 [facility] Comment on above: Performed By: #### A MM #### [facility] [address] [place] [address] Dr. Ibis Jimenez CO2 [Moles/Vol] 22.5 mmol/L Normal 21.0-32.0 [facility] Comment on above: Performed By: #### A MM #### [facility] [address] [address] [address] Ibis Jimenez Creatinine [Mass/Vol] 0.82 mg/dL Normal 0.55-1.02 [facility] Comment on above: Performed By: #### A MM #### [facility] [address] [address] [address] Ibis Jimenez EGFR-AF ALGERIAN >60 Normal >=60 [facility] Comment on above: Performed By: #### A MM #### [facility] [address] [address] [address] Ibis Jimenez EGFR-NON AF ALGERIAN >60 Normal >=60 [facility] Comment on above: Performed By: #### A MM #### [facility] [address] [place] [address] Dr. Ibis Jimenez Glucose [Mass/Vol] 87 mg/dL Normal 74-106 [facility] Comment on above: Performed By: #### A MM #### [facility] [address] [place] [address] Dr. Ibis Jimenez Potassium [Moles/Vol] 4.1 mmol/L Normal 3.5-5.1 [facility] Comment on above: Performed By: #### A MM #### [facility] [address] [place] [address] Dr. Ibis Jimenez Sodium [Moles/Vol] 138 mmol/L Normal 136-145 [facility] Comment on above: Performed By: #### A MM #### [facility] [address] [place] [address] Dr. Ibis Jimenez Urea nitrogen [Mass/Vol] 22.0 mg/dL Critically high 7.0-18.0 [facility] Comment on above: Performed By: #### A MM #### [facility] [address] [place] [address] Dr. Ibis Jimenez Urea nitrogen/Creatinine [Mass ratio] 26.8 mg/mg Normal [facility] Comment on above: Performed By: #### A MM #### [facility] [address] [address] [address] Ibis Jimenez SALICYLATEon 06-19-2022 SALICYLATE <2.8 Normal <=19.9 [facility] Comment on above: Performed By: #### A RYAN, KOIR #### [facility] [address] [place] [address] Dr. Ibis Jimenez URINE MICROSCOPIC ONLYon BACTERIA NONE SEEN Normal NONE SEEN [facility] Comment on above: Performed By: #### M DAVID #### [facility] [address] [place] [address] Dr. Ibis Jimenez Bacteria identified Cx Nom (U) NOT INDICATED Normal [facility] Comment on above: Performed By: #### M DAVID #### [facility] [address] [place] [address] Dr. Ibis Jimenez CAST SEEN Abnormal NONE SEEN [facility] Comment on above: Performed By: #### M DAVID #### [facility] [address] [place] [address] Dr. Ibis Jimenez Crystals LM Nom (Urine sed) NONE SEEN Normal NONE SEEN [facility] Comment on above: Performed By: #### M DAVID #### [facility] [address] [place] [address] Dr. Ibis Jimenez Epithelial cells LM Ql (Urine sed) MODERATE Abnormal NONE SEEN /RARE [facility] Comment on above: Performed By: #### M DAVID #### [facility] [address] [place] [address] Dr. Ibis Jimenez HYALINE CAST FEW Normal [facility] Comment on above: Performed By: #### M DAVID #### [facility] [address] [place] [address] Dr. Ibis Jimenez MUCOUS NONE SEEN Normal NONE SEEN [facility] Comment on above: Performed By: #### M DAVID #### [facility] [address] [place] [address] Dr. Ibis Jimenez RBC 2-5 Abnormal 0-2 [facility] Comment on above: Performed By: #### M DAVID #### [facility] [address] [place] [address] Dr. Ibis Jimenez WBC NONE SEEN Normal NONE SEEN [facility] Comment on above: Performed By: #### M DAVID #### [facility] [address] [place] [address] Dr. Ibis Jimenez CBC AUTO DIFFon 06-11-2022 BASO # 0.0 103/ul Normal 0.0-0.1 [facility] Comment on above: Performed By: #### C VDTBH #### [facility] [address] [place] [address] Dr. Ibis Jimenez Basophils/100 WBC (Bld) 0.3 % Normal 0.2-2.0 [facility] Comment on above: Performed By: #### C VDTBH #### [facility] [address] [place] [address] Dr. Ibis Jimenez EO # 0.0 103/ul Normal 0.0-0.7 [facility] Comment on above: Performed By: #### C VDTBH #### [facility] [address] [place] [address] Dr. Ibis Jimenez Eosinophils/100 WBC (Bld) 0.1 % Critically low 0.9-7.0 [facility] Comment on above: Performed By: #### C VDTBH #### [facility] [address] [place] [address] Dr. Ibis Jimenez Erythrocyte distribution width (RBC) [Ratio] 13.2 % Normal 11.0-15.0 [facility] Comment on above: Performed By: #### C VDTBH #### [facility] [address] [place] [address] Dr. Ibis Jimenez Hematocrit (Bld) [Volume fraction] 38.5 % Normal 36.0-48.0 [facility] Comment on above: Performed By: #### C VDTBH #### [facility] [address] [place] [address] Dr. Ibis Jimenez Hemoglobin (Bld) [Mass/Vol] 12.4 g/dL Normal 12.0-16.0 [facility] Comment on above: Performed By: #### C VDTBH #### [facility] [address] [address] [address] Ibis Jimenez IG # 0.20 10e3/ul Critically high 0.00-0.03 [facility] Comment on above: Performed By: #### C VDTBH #### [facility] [address] [address] [address] Ibis Jimenez IG % 1.8 % Critically high 0.0-0.5 [facility] Comment on above: Performed By: #### C VDTBH #### [facility] [address] [address] [address] Ibis Jimenez LYMPH # 0.5 103/ul Critically low 1.2-3.8 [facility] Comment on above: Performed By: #### C VDTBH #### [facility] [address] [place] [address] Dr. Ibis Jimenez Lymphocytes/100 WBC (Bld) 4.6 % Critically low 20.5-60.0 [facility] Comment on above: Performed By: #### C VDTBH #### [facility] [address] [place] [address] Dr. Ibis Jimenez MANUAL DIFF REQ NO Normal [facility] Comment on above: Performed By: #### C VDTBH #### [facility] [address] [place] [address] Dr. Ibis Jimenez MCH (RBC) [Entitic mass] 28.2 pg Normal 26.7-34.0 [facility] Comment on above: Performed By: #### C VDTBH #### [facility] [address] [place] [address] Dr. Ibis Jimenez MCHC (RBC) [Mass/Vol] 32.2 g/dL Normal 29.9-35.2 [facility] Comment on above: Performed By: #### C VDTBH #### [facility] [address] [place] [address] Dr. Ibis Jimenez MCV (RBC) [Entitic vol] 87.5 fL Normal 81.0-99.0 [facility] Comment on above: Performed By: #### C VDTB #### [facility] [address] [place] [address] Dr. Ibis Jimenez MONO # 0.1 103/ul Critically low 0.3-0.8 [facility] Comment on above: Performed By: #### C VDTBH #### [facility] [address] [place] [address] Dr. Ibis Jimenez Monocytes/100 WBC (Bld) 1.3 % Critically low 1.7-12.0 [facility] Comment on above: Performed By: #### C VDTBH #### [facility] [address] [place] [address] Dr. Ibis Jimenez NEUT # 10.1 103/ul Critically high 1.4-6.5 [facility] Comment on above: Performed By: #### C VDTBH #### [facility] [address] [place] [address] Dr. Ibis Jimenez Neutrophils/100 WBC (Bld) 91.9 % Critically high 43.0-75.0 [facility] Comment on above: Performed By: #### C VDTBH #### [facility] [address] [place] [address] Dr. Ibis Jimenez Platelet mean volume (Bld) [Entitic vol] 9.1 fL Critically low 9.5-13.5 [facility] Comment on above: Performed By: #### C VDTBH #### [facility] [address] [place] [address] Dr. Ibis Jimenez PLT 240 103/ul Normal 150-450 [facility] Comment on above: Performed By: #### C VDTBH #### [facility] [address] [place] [address] Dr. Ibis Jimenez RBC 4.40 106/ul Normal 4.20-5.40 [facility] Comment on above: Performed By: #### C VDTBH #### [facility] [address] [place] [address] Dr. Ibis Jimenez WBC 11.0 103/ul Normal 4.0-11.0 [facility] Comment on above: Performed By: #### C VDTBH #### [facility] [address] [place] [address] Dr. Ibis Jimenez PROF 14(COMP METB)on 023 Albumin [Mass/Vol] 3.3 g/dL Critically low 3.4-5.0 [facility] Comment on above: Performed By: #### B MP #### [facility] [address] [address] [address] Ibis Jimenez Albumin/Globulin [Mass ratio] 0.9 {ratio} Normal [facility] Comment on above: Performed By: #### B MP #### [facility] [address] [place] [address] Dr. Ibis Jimenez ALP [Catalytic activity/Vol] 63 U/L Normal 46-116 [facility] Comment on above: Performed By: #### B MP #### [facility] [address] [place] [address] Dr. Ibis Jimenez ALT [Catalytic activity/Vol] 32 U/L Normal 14-59 [facility] Comment on above: Performed By: #### B MP #### [facility] [address] [place] [address] Dr. Ibis Jimenez Anion gap [Moles/Vol] 12.9 mmol/L Normal [facility] Comment on above: Performed By: #### B MP #### [facility] [address] [place] [address] Dr. Ibis Jimenez AST [Catalytic activity/Vol] 14 U/L Critically low 15-37 [facility] Comment on above: Performed By: #### B MP #### [facility] [address] [place] [address] Dr. Ibis Jimenez Bilirubin [Mass/Vol] 0.2 mg/dL Normal 0.2-1.0 [facility] Comment on above: Performed By: #### B MP #### [facility] [address] [place] [address] Dr. Ibis Jimenez Calcium [Mass/Vol] 8.5 mg/dL Normal 8.5-10.1 [facility] Comment on above: Performed By: #### B MP #### [facility] [address] [address] [address] Ibis Jimenez Chloride [Moles/Vol] 106 mmol/L Normal 98-107 [facility] Comment on above: Performed By: #### B MP #### [facility] [address] [place] [address] Dr. Ibis Jimenez CO2 [Moles/Vol] 26.6 mmol/L Normal 21.0-32.0 [facility] Comment on above: Performed By: #### B MP #### [facility] [address] [place] [address] Dr. Ibis Jimenez Creatinine [Mass/Vol] 0.89 mg/dL Normal 0.55-1.02 [facility] Comment on above: Performed By: #### B MP #### [facility] [address] [place] [address] Dr. Ibis Jimenez EGFR-AF ALGERIAN >60 Normal >=60 [facility] Comment on above: Performed By: #### B MP #### [facility] [address] [place] [address] Dr. Ibis Jimenez EGFR-NON AF ALGERIAN >60 Normal >=60 [facility] Comment on above: Performed By: #### B MP #### [facility] [address] [place] [address] Dr. Ibis Jimenez Globulin (S) [Mass/Vol] 3.6 g/dL Normal [facility] Comment on above: Performed By: #### B MP #### [facility] [address] [address] [address] Ibis Jimenez Glucose [Mass/Vol] 134 mg/dL Critically high 74-106 [facility] Comment on above: Performed By: #### B MP #### [facility] [address] [place] [address] Dr. Ibis Jimenez Potassium [Moles/Vol] 4.5 mmol/L Normal 3.5-5.1 [facility] Comment on above: Performed By: #### B MP #### [facility] [address] [place] [address] Dr. Ibis Jimenez Protein [Mass/Vol] 6.9 g/dL Normal 6.4-8.2 [facility] Comment on above: Performed By: #### B MP #### [facility] [address] [address] [address] Ibis Jimenez Sodium [Moles/Vol] 141 mmol/L Normal 136-145 [facility] Comment on above: Performed By: #### B MP #### [facility] [address] [address] [address] Ibis Jimenez Urea nitrogen [Mass/Vol] 15.0 mg/dL Normal 7.0-18.0 [facility] Comment on above: Performed By: #### B MP #### [facility] [address] [place] [address] Dr. Ibis Jimenez Urea nitrogen/Creatinine [Mass ratio] 16.9 mg/mg Normal [facility] Comment on above: Performed By: #### B MP #### [facility] [address] [place] [address] HEAD WO CONon 05-23-2022 CT HEAD WO CON EXAMINATION: CT HEAD WO [facility], 05/23/2022 6:45 PM EDT HISTORY: Traumatic AND/OR [...] by: NICHOLAS MARCUS Date: 2022-05-23 19:25 Normal [facility] CT LSPINE WO CONon CT LSLAWTEY WO CON CT CERVICAL SPINE WITHOUT CONTRAST. [...] by: SINDY KING Date: 2022-05-23 19:41 Normal [facility] CT HEAD WO CONon 04-01-2022 CT HEAD [...] by: ROBIN IRBY Date: 2022-03-31 22:40 Normal [facility] SARS-CoV-2 (COVID-19) RNA SAURABH+probe Ql (Unsp spec) Not detected Normal NOT DETECTED [facility] Comment on above: Result Comment: When diagnostic [...] for this test is supported by the [place] [employer] and Human Service's declaration that [...] used). Performed By: #### C VDTBH #### [facility] [address] [place] [address] Dr. Ibis Jimenez ER URINE PROFILEon 3 Bilirubin Ql (U) Negative Normal NEGATIVE [facility] Comment on above: Performed By: #### A CET, SALYC #### [facility] [address] [place] [address] Dr. Ibis Jimenez Clarity (U) CLEAR Normal CLEAR [facility] Comment on above: Performed By: #### A CET, SALYC #### [facility] [address] [place] [address] Dr. Ibis Jimenez Color (U) YELLOW Normal YELLOW [facility] Comment on above: Performed By: #### A CET, SALYC #### [facility] [address] [place] [address] Dr. Ibis Jimenez ERUAHD A micrscopic examination will be performed if indicated. Normal [facility] Comment on above: Performed By: #### A CET, SALYC #### [facility] [address] [place] [address] Dr. Ibis Jimenez Glucose Ql (U) Negative Normal NEGATIVE [facility] Comment on above: Performed By: #### A CET, SALYC #### [facility] [address] [place] [address] Dr. Ibis Jimenez Hemoglobin Ql (U) SMALL Abnormal NEGATIVE [facility] Comment on above: Performed By: #### A CET, SALYC #### [facility] [address] [place] [address] Dr. Ibis Jimenez Ketones Ql (U) Negative Normal NEGATIVE [facility] Comment on above: Performed By: #### A CET, SALYC #### [facility] [address] [place] [address] Dr. Ibis Jimenez LEUKOCYTES Negative Normal NEGATIVE [facility] Comment on above: Performed By: #### A CET, SALYC #### [facility] [address] [place] [address] Dr. Ibis Jimenez Nitrite Ql (U) Negative Normal NEGATIVE [facility] Comment on above: Performed By: #### A CET, SALYC #### [facility] [address] [place] [address] Dr. Ibis Jimenez pH (U) 5.5 [pH] Normal 5-9 [facility] Comment on above: Performed By: #### A CET, SALYC #### [facility] [address] [place] [address] Dr. Ibis Jimenez SPEC GRAVITY >=1.030 Abnormal 1.005-<=1.02 5 [facility] Comment on above: Performed By: #### A CET, SALYC #### [facility] [address] [place] [address] Dr. Ibis Jimenez UA PROTEIN Negative Normal NEGATIVE/ TRACE [facility] Comment on above: Performed By: #### A CET, SALYC #### [facility] [address] [place] [address] Dr. Ibis Jimenez UR MICRO IND INDICATED Normal [facility] Comment on above: Performed By: #### A CET, SALYC #### [facility] [address] [place] [address] Dr. Ibis Jimenez Urobilinogen Qn (U) 0.2 {Dinorah'U}/dL Normal 0.2 - 1. 0 [facility] Comment on above: Performed By: #### A KORI DAVIS #### [facility] [address] [place] [address] Dr. Ibis Jimenez INFLUENZA A AND B AGon 04-01 INFLUANEGH SEE BELOW Normal [facility] Comment on above: Result Comment: Nega tive for Flu A protein angiten. Infection due to Flu A cannot be ruled out. Flu A angiten in the sample may be below the detection limit of the test. Performed By: #### A MM #### [facility] [address] [place] [address] Dr. Ibis Jimenez INFLUBNEGH SEE BELOW Normal [facility] Comment on above: Result Comment: Nega tive for Flu B protein antigen. Infection due to Flu B cannot be ruled out. Flu B antigen in the sample may be below the detection limit of the test. Performed By: #### A MM #### [facility] [address] [place] [address] Dr. Ibis Jimenez INFLUENZA A AG Negative Normal NEGATIVE SEE COMMENT [facility] Comment on above: Performed By: #### A MM #### [facility] [address] [place] [address] Dr. Ibis Jimenez INFLUENZA B AG Negative Normal NEGATIVE SEE COMMENT [facility] Comment on above: Performed By: #### A MM #### [facility] [address] [place] [address] Dr. Ibis Jimenez LACTATE/LACTIC ACIDon 2022 Lactate [Moles/Vol] 1.9 mmol/L Normal 0.4-1.9 [facility] Comment on above: Performed By: #### L ACT #### [facility] [address] [place] [address] Dr. Ibis Jimenez URINE MICROSCOPIC ONLYon BACTERIA TRACE Abnormal NONE SEEN [facility] Comment on above: Performed By: #### A CET, BEEYC #### [facility] [address] [place] [address] Dr. Ibis Jimenez Bacteria identified Cx Nom (U) NOT INDICATED Normal [facility] Comment on above: Performed By: #### A CET, SALYC #### [facility] [address] [place] [address] Dr. Ibis Jimenez CAST NONE SEEN Normal NONE SEEN [facility] Comment on above: Performed By: #### A CET, SALYC #### [facility] [address] [place] [address] Dr. Ibis Jimenez Crystals LM Nom (Urine sed) NONE SEEN Normal NONE SEEN [facility] Comment on above: Performed By: #### A CET, SALYC #### [facility] [address] [place] [address] Dr. Ibis Jimenez Epithelial cells LM Ql (Urine sed) RARE Normal NONE SEEN /RARE [facility] Comment on above: Performed By: #### A CET, SALYC #### [facility] [address] [place] [address] Dr. Ibis Jimenez MUCOUS TRACE Abnormal NONE SEEN [facility] Comment on above: Performed By: #### A CET, SALYC #### [facility] [address] [place] [address] Dr. Ibis Jimenez RBC 0-2 Normal 0-2 [facility] Comment on above: Performed By: #### A CET, SALYC #### [facility] [address] [place] [address] Dr. Ibis Jimenez WBC NONE SEEN Normal NONE SEEN [facility] Comment on above: Performed By: #### A CET, SALYC #### [facility] [address] [place] [address] Dr. Ibis Jimenez AMMONIAon 03-31-2022 Ammonia (P) [Moles/Vol] 31 umol/L Normal 11-32 [facility] Comment on above: Performed By: #### A MM #### [facility] [address] [place] [address] Dr. Ibis Jimenez CBC AUTO DIFFon 03-31-2022 BASO # 0.0 103/ul Normal 0.0-0.1 [facility] Comment on above: Performed By: #### A MM #### [facility] [address] [address] [address] Ibis Jimenez Basophils/100 WBC (Bld) 0.4 % Normal 0.2-2.0 [facility] Comment on above: Performed By: #### A MM #### [facility] [address] [place] [address] Dr. Ibis Jimenez EO # 0.5 103/ul Normal 0.0-0.7 [facility] Comment on above: Performed By: #### A MM #### [facility] [address] [place] [address] Dr. Ibis Jimenez Eosinophils/100 WBC (Bld) 6.4 % Normal 0.9-7.0 [facility] Comment on above: Performed By: #### A MM #### [facility] [address] [place] [address] Dr. Ibis Jimenez Erythrocyte distribution width (RBC) [Ratio] 12.8 % Normal 11.0-15.0 [facility] Comment on above: Performed By: #### A MM #### [facility] [address] [place] [address] Dr. Ibis Jimenez Hematocrit (Bld) [Volume fraction] 36.6 % Normal 36.0-48.0 [facility] Comment on above: Performed By: #### A MM #### [facility] [address] [place] [address] Dr. Ibis Jimenez Hemoglobin (Bld) [Mass/Vol] 12.5 g/dL Normal 12.0-16.0 [facility] Comment on above: Performed By: #### A MM #### [facility] [address] [place] [address] Dr. Ibis Jimenez IG # 0.02 10e3/ul Normal 0.00-0.03 [facility] Comment on above: Performed By: #### A MM #### [facility] [address] [place] [address] Dr. Ibis Jimenez IG % 0.3 % Normal 0.0-0.5 [facility] Comment on above: Performed By: #### A MM #### [facility] [address] [place] [address] Dr. Ibis Jimenez LYMPH # 2.0 103/ul Normal 1.2-3.8 [facility] Comment on above: Performed By: #### A MM #### [facility] [address] [place] [address] Dr. Ibis Jimenez Lymphocytes/100 WBC (Bld) 25.0 % Normal 20.5-60.0 [facility] Comment on above: Performed By: #### A MM #### [facility] [address] [place] [address] Dr. Ibis Jimenez MANUAL DIFF REQ NO Normal [facility] Comment on above: Performed By: #### A MM #### [facility] [address] [place] [address] Dr. Ibis Jimenez MCH (RBC) [Entitic mass] 29.5 pg Normal 26.7-34.0 [facility] Comment on above: Performed By: #### A MM #### [facility] [address] [place] [address] Dr. Ibis Jimenez MCHC (RBC) [Mass/Vol] 34.2 g/dL Normal 29.9-35.2 [facility] Comment on above: Performed By: #### A MM #### [facility] [address] [place] [address] Dr. Ibis Jimenez MCV (RBC) [Entitic vol] 86.3 fL Normal 81.0-99.0 [facility] Comment on above: Performed By: #### A MM #### [facility] [address] [place] [address] Dr. Ibis Jimenez MONO # 0.4 103/ul Normal 0.3-0.8 [facility] Comment on above: Performed By: #### A MM #### [facility] [address] [place] [address] Dr. Ibis Jimenez Monocytes/100 WBC (Bld) 5.6 % Normal 1.7-12.0 [facility] Comment on above: Performed By: #### A MM #### [facility] [address] [place] [address] Dr. Ibis Jimenez NEUT # 4.9 103/ul Normal 1.4-6.5 [facility] Comment on above: Performed By: #### A MM #### [facility] [address] [place] [address] Dr. Ibis Jimenez Neutrophils/100 WBC (Bld) 62.3 % Normal 43.0-75.0 [facility] Comment on above: Performed By: #### A MM #### [facility] [address] [place] [address] Dr. Ibis Jimenez Platelet mean volume (Bld) [Entitic vol] 9.5 fL Normal 9.5-13.5 [facility] Comment on above: Performed By: #### A MM #### [facility] [address] [place] [address] Dr. Ibis Jimenez PLT 246 103/ul Normal 150-450 [facility] Comment on above: Performed By: #### A MM #### [facility] [address] [place] [address] Dr. Ibis Jimenez RBC 4.24 106/ul Normal 4.20-5.40 [facility] Comment on above: Performed By: #### A MM #### [facility] [address] [place] [address] Dr. Ibis Jimenez WBC 7.8 103/ul Normal 4.0-11.0 [facility] Comment on above: Performed By: #### A MM #### [facility] [address] [place] [address] Dr. Ibis Jimenez CULTURE BLOODon 03-31-2022 Microscopic examination of blood, culture Culture Observations: NO GROWTH AT 5 DAYS. Normal [facility] Comment on above: Performed By: #### B LDCX2 #### [facility] [address] [place] [address] Dr. Ibis Jimenez Microscopic examination of blood, culture Culture Observations: NO GROWTH AT 5 DAYS. Normal [facility] Comment on above: Performed By: #### B MP #### [facility] [address] [place] [address] Dr. Ibis Jimenez LACTATE/LACTIC ACIDon 2022 Lactate [Moles/Vol] 2.8 mmol/L Critically high 0.4-1.9 [facility] Comment on above: Performed By: #### [facility] #### [facility] [address] [place] [address] Dr. Ibis Jimenez PROF 14(COMP METB)on 023 Albumin [Mass/Vol] 3.4 g/dL Normal 3.4-5.0 [facility] Comment on above: Performed By: #### B MP #### [facility] [address] [place] [address] Dr. Ibis Jimenez Albumin/Globulin [Mass ratio] 1.2 {ratio} Normal [facility] Comment on above: Performed By: #### B MP #### [facility] [address] [place] [address] Dr. Ibis Jimenez ALP [Catalytic activity/Vol] 85 U/L Normal 46-116 [facility] Comment on above: Performed By: #### B MP #### [facility] [address] [place] [address] Dr. Ibis Jimenez ALT [Catalytic activity/Vol] 18 U/L Normal 14-59 [facility] Comment on above: Performed By: #### B MP #### [facility] [address] [place] [address] Dr. Ibis Jimenez Anion gap [Moles/Vol] 13.2 mmol/L Normal [facility] Comment on above: Performed By: #### B MP #### [facility] [address] [place] [address] Dr. Ibis Jimenez AST [Catalytic activity/Vol] 11 U/L Critically low 15-37 [facility] Comment on above: Performed By: #### B MP #### [facility] [address] [place] [address] Dr. Ibis Jimenez Bilirubin [Mass/Vol] 0.2 mg/dL Normal 0.2-1.0 [facility] Comment on above: Performed By: #### B MP #### [facility] [address] [place] [address] Dr. Ibis Jimenez Calcium [Mass/Vol] 8.6 mg/dL Normal 8.5-10.1 [facility] Comment on above: Performed By: #### B MP #### [facility] [address] [address] [address] Ibis Jimenez Chloride [Moles/Vol] 105 mmol/L Normal 98-107 [facility] Comment on above: Performed By: #### B MP #### [facility] [address] [address] [address] Ibis Jimenez CO2 [Moles/Vol] 25.1 mmol/L Normal 21.0-32.0 [facility] Comment on above: Performed By: #### B MP #### [facility] [address] [place] [address] Dr. Ibis Jimenez Creatinine [Mass/Vol] 0.80 mg/dL Normal 0.55-1.02 [facility] Comment on above: Performed By: #### B MP #### [facility] [address] [address] [address] Ibis Jimenez EGFR-AF ALGERIAN >60 Normal >=60 [facility] Comment on above: Performed By: #### B MP #### [facility] [address] [place] [address] Dr. Ibis Jimenez EGFR-NON AF ALGERIAN >60 Normal >=60 [facility] Comment on above: Performed By: #### B MP #### [facility] [address] [place] [address] Dr. Ibis Jimenez Globulin (S) [Mass/Vol] 2.9 g/dL Normal [facility] Comment on above: Performed By: #### B MP #### [facility] [address] [address] [address] Ibis Jimenez Glucose [Mass/Vol] 99 mg/dL Normal 74-106 [facility] Comment on above: Performed By: #### B MP #### [facility] [address] [place] [address] Dr. Ibis Jimenez Potassium [Moles/Vol] 3.3 mmol/L Critically low 3.5-5.1 [facility] Comment on above: Performed By: #### B MP #### [facility] [address] [address] [address] Ibis Jimenez Protein [Mass/Vol] 6.3 g/dL Critically low 6.4-8.2 [facility] Comment on above: Performed By: #### B MP #### [facility] [address] [address] [address] Ibis Jimenez Sodium [Moles/Vol] 140 mmol/L Normal 136-145 [facility] Comment on above: Performed By: #### B MP #### [facility] [address] [address] [address] Ibis Jimenez Urea nitrogen [Mass/Vol] 10.0 mg/dL Normal 7.0-18.0 [facility] Comment on above: Performed By: #### B MP #### [facility] [address] [place] [address] Dr. Ibis Jimenez Urea nitrogen/Creatinine [Mass ratio] 12.5 mg/mg Normal [facility] Comment on above: Performed By: #### B MP #### [facility] [address] [place] [address] Dr. Ibis Jimenez CBC AUTO DIFFon 01-14-2022 BASO # 0.0 103/ul Normal 0.0-0.1 [facility] Comment on above: Performed By: #### A MM #### [facility] [address] [place] [address] Dr. Ibis Jimenez Basophils/100 WBC (Bld) 0.3 % Normal 0.2-2.0 [facility] Comment on above: Performed By: #### A MM #### [facility] [address] [place] [address] Dr. Ibis Jimenez EO # 0.2 103/ul Normal 0.0-0.7 [facility] Comment on above: Performed By: #### A MM #### [facility] [address] [place] [address] Dr. Ibis Jimenez Eosinophils/100 WBC (Bld) 2.7 % Normal 0.9-7.0 [facility] Comment on above: Performed By: #### A MM #### [facility] [address] [place] [address] Dr. Ibis Jimenez Erythrocyte distribution width (RBC) [Ratio] 13.2 % Normal 11.0-15.0 [facility] Comment on above: Performed By: #### A MM #### [facility] [address] [place] [address] Dr. Ibis Jimenez Hematocrit (Bld) [Volume fraction] 35.7 % Critically low 36.0-48.0 [facility] Comment on above: Performed By: #### A MM #### [facility] [address] [place] [address] Dr. Ibis Jimenez Hemoglobin (Bld) [Mass/Vol] 12.2 g/dL Normal 12.0-16.0 [facility] Comment on above: Performed By: #### A MM #### [facility] [address] [place] [address] Dr. Ibis Jimenez IG # 0.04 10e3/ul Critically high 0.00-0.03 [facility] Comment on above: Performed By: #### A MM #### [facility] [address] [place] [address] Dr. Ibis Jimenez IG % 0.5 % Normal 0.0-0.5 [facility] Comment on above: Performed By: #### A MM #### [facility] [address] [place] [address] Dr. Ibis Jimenez LYMPH # 2.1 103/ul Normal 1.2-3.8 [facility] Comment on above: Performed By: #### A MM #### [facility] [address] [place] [address] Dr. Ibis Jimenez Lymphocytes/100 WBC (Bld) 27.3 % Normal 20.5-60.0 [facility] Comment on above: Performed By: #### A MM #### [facility] [address] [place] [address] Dr. Ibis Jimenez MANUAL DIFF REQ NO Normal [facility] Comment on above: Performed By: #### A MM #### [facility] [address] [place] [address] Dr. Ibis Jimenez MCH (RBC) [Entitic mass] 29.0 pg Normal 26.7-34.0 [facility] Comment on above: Performed By: #### A MM #### [facility] [address] [place] [address] Dr. Ibis Jimenez MCHC (RBC) [Mass/Vol] 34.2 g/dL Normal 29.9-35.2 [facility] Comment on above: Performed By: #### A MM #### [facility] [address] [place] [address] Dr. Ibis Jimenez MCV (RBC) [Entitic vol] 84.8 fL Normal 81.0-99.0 [facility] Comment on above: Performed By: #### A MM #### [facility] [address] [place] [address] Dr. Ibis Jimenez MONO # 0.7 103/ul Normal 0.3-0.8 [facility] Comment on above: Performed By: #### A MM #### [facility] [address] [place] [address] Dr. Ibis Jimenez Monocytes/100 WBC (Bld) 8.7 % Normal 1.7-12.0 [facility] Comment on above: Performed By: #### A MM #### [facility] [address] [place] [address] Dr. Ibis Jimenez NEUT # 4.7 103/ul Normal 1.4-6.5 [facility] Comment on above: Performed By: #### A MM #### [facility] [address] [place] [address] Dr. Ibis Jimenez Neutrophils/100 WBC (Bld) 60.5 % Normal 43.0-75.0 [facility] Comment on above: Performed By: #### A MM #### [facility] [address] [place] [address] Dr. Ibis Jimenez Platelet mean volume (Bld) [Entitic vol] 9.6 fL Normal 9.5-13.5 [facility] Comment on above: Performed By: #### A MM #### [facility] [address] [place], [place] [address] Dr. Ibis Jimenez PLT 212 103/ul Normal 150-450 [facility] Comment on above: Performed By: #### A MM #### [facility] [address] [address] [address] Ibis Jimenez RBC 4.21 106/ul Normal 4.20-5.40 [facility] Comment on above: Performed By: #### A MM #### [facility] [id number] Ibis Jimenez WBC 7.7 103/ul Normal 4.0-11.0 [facility] Comment on above: Performed By: #### A MM #### [facility] [address] [place] [address] ABD/PELV W CONon [...] or acute renal pathology. Electronically authenticated by: TONYJose DAHL Date: 2022-01-14 20:01 Normal [facility] ER URINE PROFILEon 2 Bilirubin Ql (U) Negative Normal NEGATIVE [facility] Comment on above: Performed By: #### A CET, SALYC #### [facility] [address] [place] [address] Dr. Ibis Jimenez Clarity (U) CLEAR Normal CLEAR [facility] Comment on above: Performed By: #### A CET, SALYC #### [facility] [address] [place] [address] Dr. Ibis Jimenez Color (U) LT. YELLOW Normal YELLOW [facility] Comment on above: Performed By: #### A CET, SALYC #### [facility] [address] [place] [address] Dr. Ibis Jimenez ERUSYLVAIN A micrscopic examination will be performed if indicated. Normal [facility] Comment on above: Performed By: #### A CET, SALYC #### [facility] [address] [place] [address] Dr. Ibis Jimenez Glucose Ql (U) Negative Normal NEGATIVE [facility] Comment on above: Performed By: #### A CET, SALYC #### [facility] [address] [place] [address] Dr. Ibis Jimenez Hemoglobin Ql (U) Negative Normal NEGATIVE [facility] Comment on above: Performed By: #### A CET, SALYC #### [facility] [address] [place] [address] Dr. Ibis Jimenez Ketones Ql (U) Negative Normal NEGATIVE [facility] Comment on above: Performed By: #### A CET, SALYC #### [facility] [address] [place] [address] Dr. Ibis Jimenez LEUKOCYTES TRACE Abnormal NEGATIVE [facility] Comment on above: Performed By: #### A CET, SALYC #### [facility] [address] [address] [address] Ibis Jimenez Nitrite Ql (U) Negative Normal NEGATIVE [facility] Comment on above: Performed By: #### A CET, SALYC #### [facility] [address] [address] [address] Ibis Jimenez pH (U) 5.5 [pH] Normal 5-9 [facility] Comment on above: Performed By: #### A CET, SALYC #### [facility] [address] [address] [address] Ibis Jimenez SPEC GRAVITY 1.025 Normal 1.005-<=1.02 5 [facility] Comment on above: Performed By: #### A CET, SALYC #### [facility] [address] [place] [address] Dr. Ibis Jimenez UA PROTEIN Negative Normal NEGATIVE/ TRACE [facility] Comment on above: Performed By: #### A CET, SALYC #### [facility] [address] [place] [address] Dr. Ibis Jimenez UR MICRO IND INDICATED Normal [facility] Comment on above: Performed By: #### A CET, SALYC #### [facility] [address] [place] [address] Dr. Ibis Jimenez Urobilinogen Qn (U) 0.2 {Dinorah'U}/dL Normal 0.2 - 1. 0 [facility] Comment on above: Performed By: #### A CET, SALYC #### [facility] [address] [place] [address] Dr. Ibis Jimenez URon 01-14-2022 , QUAL Negative Normal NEGATIVE [facility] Comment on above: Performed By: #### A CET, SALYC #### [facility] [address] [place] [address] Dr. Ibis Jimenez PROF CHEM 8 (BAS METB)on Anion gap [Moles/Vol] 9.9 mmol/L Normal [facility] Comment on above: Performed By: #### B MP #### [facility] [address] [address] [address] Ibis Jimenez Calcium [Mass/Vol] 8.6 mg/dL Normal 8.5-10.1 [facility] Comment on above: Performed By: #### B MP #### [facility] [address] [address] [address] Ibis Jimenez Chloride [Moles/Vol] 105 mmol/L Normal 98-107 [facility] Comment on above: Performed By: #### B MP #### [facility] [address] [address] [address] Ibis Jimenez CO2 [Moles/Vol] 27.5 mmol/L Normal 21.0-32.0 [facility] Comment on above: Performed By: #### B MP #### [facility] [address] [address] [address] Ibis Jimenez Creatinine [Mass/Vol] 0.70 mg/dL Normal 0.55-1.02 [facility] Comment on above: Performed By: #### B MP #### [facility] [address] [address] [address] Ibis Jimenez EGFR-AF ALGERIAN >60 Normal >=60 [facility] Comment on above: Performed By: #### B MP #### [facility] [address] [address] [address] Ibis Jimenez EGFR-NON AF ALGERIAN >60 Normal >=60 [facility] Comment on above: Performed By: #### B MP #### [facility] [address] [address] [address] Ibis Jimenez Glucose [Mass/Vol] 83 mg/dL Normal 74-106 [facility] Comment on above: Performed By: #### B MP #### [facility] [address] [address] [address] Ibis Jimenez Potassium [Moles/Vol] 4.4 mmol/L Normal 3.5-5.1 [facility] Comment on above: Performed By: #### B MP #### [facility] [address] [address] [address] Ibis Jimenez Sodium [Moles/Vol] 138 mmol/L Normal 136-145 [facility] Comment on above: Performed By: #### B MP #### [facility] [address] [place] [address] Dr. Ibis Jimenez Urea nitrogen [Mass/Vol] 13.0 mg/dL Normal 7.0-18.0 [facility] Comment on above: Performed By: #### B MP #### [facility] [address] [place] [address] Dr. Ibis Jimenez Urea nitrogen/Creatinine [Mass ratio] 18.6 mg/mg Normal [facility] Comment on above: Performed By: #### B MP #### [facility] [address] [place] [address] Dr. Ibis Jimenez URINE MICROSCOPIC ONLYon BACTERIA NONE SEEN Normal NONE SEEN [facility] Comment on above: Performed By: #### A CET, SALYC #### [facility] [address] [place] [address] Dr. Ibis Jimenez Bacteria identified Cx Nom (U) NOT INDICATED Normal [facility] Comment on above: Performed By: #### A CET, SALYC #### [facility] [address] [place] [address] Dr. Ibis Jimenez CAST NONE SEEN Normal NONE SEEN [facility] Comment on above: Performed By: #### A CET, SALYC #### [facility] [address] [place] [address] Dr. Ibis Jimenez Crystals LM Nom (Urine sed) NONE SEEN Normal NONE SEEN [facility] Comment on above: Performed By: #### A CET, SALYC #### [facility] [address] [place] [address] Dr. Ibis Jimenez Epithelial cells LM Ql (Urine sed) FEW Abnormal NONE SEEN /RARE [facility] Comment on above: Performed By: #### A CET, SALYC #### [facility] [address] [place] [address] Dr. Ibis Jimenez MUCOUS NONE SEEN Normal NONE SEEN [facility] Comment on above: Performed By: #### A CET, SALYC #### [facility] [address] [address] [address] Ibis Jimenez RBC NONE SEEN Abnormal 0-2 [facility] Comment on above: Performed By: #### A CET, SALYC #### [facility] [address] [place] [address] Dr. Ibis Jimenez WBC NONE SEEN Normal NONE SEEN [facility] Comment on above: Performed By: #### A CET, SALYC #### [facility] [address] [place] [address] Dr. Ibis Jimenez CBC AUTO DIFFon 01-07-2022 BASO # 0.0 103/ul Normal 0.0-0.1 [facility] Comment on above: Performed By: #### A CET, SALYC #### [facility] [address] [place] [address] Dr. Ibis Jimenez Basophils/100 WBC (Bld) 0.2 % Normal 0.2-2.0 [facility] Comment on above: Performed By: #### A CET, SALYC #### [facility] [address] [place] [address] Dr. Ibis Jimenez EO # 0.0 103/ul Normal 0.0-0.7 [facility] Comment on above: Performed By: #### A CET, SALYC #### [facility] [address] [place] [address] Dr. Ibis Jimenez Eosinophils/100 WBC (Bld) 0.4 % Critically low 0.9-7.0 [facility] Comment on above: Performed By: #### A CET, SALYC #### [facility] [address] [place] [address] Dr. Ibis Jimenez Erythrocyte distribution width (RBC) [Ratio] 13.2 % Normal 11.0-15.0 [facility] Comment on above: Performed By: #### A CET, SALYC #### [facility] [address] [place] [address] Dr. Ibis Jimenez Hematocrit (Bld) [Volume fraction] 39.7 % Normal 36.0-48.0 [facility] [facility] Comment on above: Performed By: #### A CET, SALYC #### [facility] [address] [address] [address] Ibis Jimenez Hemoglobin (Bld) [Mass/Vol] 13.4 g/dL Normal 12.0-16.0 [facility] Comment on above: Performed By: #### A CET, SALYC #### [facility] [address] [place] [address] Dr. Ibis Jimenez IG # 0.06 10e3/ul Critically high 0.00-0.03 [facility] Comment on above: Performed By: #### A CET, SALYC #### [facility] [address] [place] [address] Dr. Ibis Jimenez IG % 0.5 % Normal 0.0-0.5 [facility] Comment on above: Performed By: #### A CET, SALYC #### [facility] [address] [place] [address] Dr. Ibis Jimenez LYMPH # 2.6 103/ul Normal 1.2-3.8 [facility] Comment on above: Performed By: #### A CET, SALYC #### [facility] [address] [place] [address] Dr. Ibis Jimenez Lymphocytes/100 WBC (Bld) 23.8 % Normal 20.5-60.0 [facility] Comment on above: Performed By: #### A CET, SALYC #### [facility] [address] [place] [address] Dr. Ibis Jimenez MANUAL DIFF REQ NO Normal [facility] Comment on above: Performed By: #### A CET, SALYC #### [facility] [address] [place] [address] Dr. Ibis Jimenez MCH (RBC) [Entitic mass] 28.8 pg Normal 26.7-34.0 [facility] Comment on above: Performed By: #### A CET, SALYC #### [facility] [address] [place] [address] Dr. Ibis Jimenez MCHC (RBC) [Mass/Vol] 33.8 g/dL Normal 29.9-35.2 [facility] Comment on above: Performed By: #### A CET, SALYC #### [facility] [address] [place] [address] Dr. Ibis Jimenez MCV (RBC) [Entitic vol] 85.2 fL Normal 81.0-99.0 [facility] Comment on above: Performed By: #### A CET, SALYC #### [facility] [address] [place] [address] Dr. Ibis Jimenez MONO # 0.8 103/ul Normal 0.3-0.8 [facility] Comment on above: Performed By: #### A CET, SALYC #### [facility] [address] [place] [address] Dr. Ibis Jimenez Monocytes/100 WBC (Bld) 7.7 % Normal 1.7-12.0 [facility] Comment on above: Performed By: #### A CET, SALYC #### [facility] [address] [place] [address] Dr. Ibis Jimenez NEUT # 7.4 103/ul Critically high 1.4-6.5 [facility] Comment on above: Performed By: #### A CET, SALYC #### [facility] [address] [place] [address] Dr. Ibis Jimenez Neutrophils/100 WBC (Bld) 67.4 % Normal 43.0-75.0 [facility] Comment on above: Performed By: #### A CET, SALYC #### [facility] [address] [place] [address] Dr. Ibis Jimenez Platelet mean volume (Bld) [Entitic vol] 9.8 fL Normal 9.5-13.5 [facility] Comment on above: Performed By: #### A CET, SALYC #### [facility] [address] [place] [address] Dr. Ibis Jimenez PLT 261 103/ul Normal 150-450 [facility] Comment on above: Performed By: #### A CET, SALYC #### [facility] [address] [address] [address] Ibis Jimenez RBC 4.66 106/ul Normal 4.20-5.40 [facility] Comment on above: Performed By: #### A KORI DAVIS #### [facility] [address] [place] [address] Dr. Ibis Jimenez WBC 10.9 103/ul Normal 4.0-11.0 [facility] Comment on above: Performed By: #### A KORI DAVIS #### [facility] [address] [place] [address] Dr. Ibis Jimenez PROF CHEM 8 (BAS METB)on Anion gap [Moles/Vol] 14.1 mmol/L Normal [facility] Comment on above: Performed By: #### B MP #### [facility] [address] [place] [address] Dr. Ibis Jimenez Calcium [Mass/Vol] 8.5 mg/dL Normal 8.5-10.1 [facility] Comment on above: Performed By: #### B MP #### [facility] [address] [place] [address] Dr. Ibis Jimenez Chloride [Moles/Vol] 103 mmol/L Normal 98-107 [facility] Comment on above: Performed By: #### B MP #### [facility] [address] [place] [address] Dr. Ibis Jimenez CO2 [Moles/Vol] 22.5 mmol/L Normal 21.0-32.0 [facility] Comment on above: Performed By: #### B MP #### [facility] [address] [place] [address] Dr. Ibis Jimenez Creatinine [Mass/Vol] 0.64 mg/dL Normal 0.55-1.02 [facility] Comment on above: Performed By: #### B MP #### [facility] [address] [place] [address] Dr. Ibis Jimenez EGFR-AF ALGERIAN >60 Normal >=60 [facility] Comment on above: Performed By: #### B MP #### [facility] [address] [place] [address] Dr. Ibis Jimenez EGFR-NON AF ALGERIAN >60 Normal >=60 [facility] Comment on above: Performed By: #### B MP #### [facility] [address] [address] [address] Ibis Jimenez Glucose [Mass/Vol] 141 mg/dL Critically high 74-106 T [facility] Comment on above: Performed By: #### B MP #### [facility] [address] [address] [address] Ibis Jimenez Potassium [Moles/Vol] 3.6 mmol/L Normal 3.5-5.1 [facility] Comment on above: Performed By: #### B MP #### [facility] [address] [address] [address] Ibis Jimenez Sodium [Moles/Vol] 136 mmol/L Normal 136-145 [facility] Comment on above: Performed By: #### B MP #### [facility] [address] [address] [address] Ibis Jimenez Urea nitrogen [Mass/Vol] 16.0 mg/dL Normal 7.0-18.0 [facility] Comment on above: Performed By: #### B MP #### [facility] [address] [address] [address] Ibis Jimenez Urea nitrogen/Creatinine [Mass ratio] 25.0 mg/mg Normal [facility] Comment on above: Performed By: #### B MP #### [facility] [address] [address] [address] Ibis Jimenez CBC AUTO DIFFon 11-04-2021 BASO # 0.0 103/ul Normal 0.0-0.1 [facility] Comment on above: Performed By: #### A KORI DAVSI #### [facility] [address] [address] [address] Ibis Jimenez Basophils/100 WBC (Bld) 0.4 % Normal 0.2-2.0 [facility] Comment on above: Performed By: #### A KORI DAVIS #### [facility] [address] [address] [address] Ibis Jimenez EO # 0.2 103/ul Normal 0.0-0.7 [facility] Comment on above: Performed By: #### A CET, SALYC #### [facility] [address] [place] [address] Dr. Ibis Jimenez Eosinophils/100 WBC (Bld) 4.1 % Normal 0.9-7.0 [facility] Comment on above: Performed By: #### A CET, SALYC #### [facility] [address] [place] [address] Dr. Ibis Jimenez Erythrocyte distribution width (RBC) [Ratio] 13.2 % Normal 11.0-15.0 [facility] Comment on above: Performed By: #### A CET, SALYC #### [facility] [address] [place] [address] Dr. Ibis Jimenez Hematocrit (Bld) [Volume fraction] 34.3 % Critically low 36.0-48.0 [facility] Comment on above: Performed By: #### A CET, SALYC #### [facility] [address] [place] [address] Dr. Ibis Jimenez Hemoglobin (Bld) [Mass/Vol] 11.5 g/dL Critically low 12.0-16.0 [facility] Comment on above: Performed By: #### A CET, SALYC #### [facility] [address] [place] [address] Dr. Ibis Jimenez IG # 0.01 10e3/ul Normal 0.00-0.03 [facility] Comment on above: Performed By: #### A CET, SALYC #### [facility] [address] [place] [address] Dr. Ibis Jimenez IG % 0.2 % Normal 0.0-0.5 [facility] Comment on above: Performed By: #### A CET, SALYC #### [facility] [address] [place] [address] Dr. Ibis Jimenez LYMPH # 1.5 103/ul Normal 1.2-3.8 [facility] Comment on above: Performed By: #### A CET, SALYC #### [facility] [address] [place] [address] Dr. Ibis Jimenez Lymphocytes/100 WBC (Bld) 26.4 % Normal 20.5-60.0 [facility] Comment on above: Performed By: #### A CET, SALYC #### [facility] [address] [place] [address] Dr. Ibis Jimenez MANUAL DIFF REQ NO Normal [facility] Comment on above: Performed By: #### A CET, SALYC #### [facility] [address] [place] [address] Dr. Ibis Jimenez MCH (RBC) [Entitic mass] 28.8 pg Normal 26.7-34.0 [facility] Comment on above: Performed By: #### A CET, SALYC #### [facility] [address] [place] [address] Dr. Ibis Jimenez MCHC (RBC) [Mass/Vol] 33.5 g/dL Normal 29.9-35.2 [facility] Comment on above: Performed By: #### A CET, SALYC #### [facility] [address] [place] [address] Dr. Ibis Jimenez MCV (RBC) [Entitic vol] 86.0 fL Normal 81.0-99.0 [facility] Comment on above: Performed By: #### A CET, SALYC #### [facility] [address] [place] [address] Dr. Ibis Jimenez MONO # 0.5 103/ul Normal 0.3-0.8 [facility] Comment on above: Performed By: #### A CET, SALYC #### [facility] [address] [place] [address] Dr. Ibis Jimenez Monocytes/100 WBC (Bld) 8.2 % Normal 1.7-12.0 [facility] Comment on above: Performed By: #### A CET, SALYC #### [facility] [address] [place] [address] Dr. Ibis Jimenez NEUT # 3.4 103/ul Normal 1.4-6.5 [facility] Comment on above: Performed By: #### A CET, SALYC #### [facility] [address] [address] [address] Ibis Jimenez Neutrophils/100 WBC (Bld) 60.7 % Normal 43.0-75.0 [facility] Comment on above: Performed By: #### A CET, SALYC #### [facility] [address] [address] [address] Ibis Jimenez Platelet mean volume (Bld) [Entitic vol] 9.9 fL Normal 9.5-13.5 [facility] Comment on above: Performed By: #### A CET, SALYC #### [facility] [address] [address] [address] Ibis Jimenez PLT 222 103/ul Normal 150-450 [facility] Comment on above: Performed By: #### A CET, SALYC #### [facility] [address] [address] [address] Ibis Jimenez RBC 3.99 106/ul Critically low 4.20-5.40 [facility] Comment on above: Performed By: #### A CET, SALYC #### [facility] [address] [address] [address] Ibis Jimenez WBC 5.6 103/ul Normal 4.0-11.0 [facility] Comment on above: Performed By: #### A CET, SALYC #### [facility] [address] [address] [address] Ibis Jimenez PROF CHEM 8 (BAS METB)on Anion gap [Moles/Vol] 10.5 mmol/L Normal [facility] Comment on above: Performed By: #### B MP #### [facility] [address] [place] [address] Dr. Ibis Jimenez Calcium [Mass/Vol] 8.8 mg/dL Normal 8.5-10.1 [facility] Comment on above: Performed By: #### B MP #### [facility] [address] [place] [address] Dr. Ibis Jimenez Chloride [Moles/Vol] 105 mmol/L Normal 98-107 [facility] Comment on above: Performed By: #### B MP #### [facility] [address] [address] [address] Ibis Jimenez CO2 [Moles/Vol] 24.9 mmol/L Normal 21.0-32.0 [facility] Comment on above: Performed By: #### B MP #### [facility] [address] [address] [address] Ibis Jimenez Creatinine [Mass/Vol] 0.71 mg/dL Normal 0.55-1.02 [facility] Comment on above: Performed By: #### B MP #### [facility] [address] [address] [address] Ibis Jimenez EGFR-AF ALGERIAN >60 Normal >=60 [facility] Comment on above: Performed By: #### B MP #### [facility] [address] [address] [address] Ibis Jimenez EGFR-NON AF ALGERIAN >60 Normal >=60 [facility] Comment on above: Performed By: #### B MP #### [facility] [address] [address] [address] Ibis Jimenez Glucose [Mass/Vol] 103 mg/dL Normal 74-106 [facility] Comment on above: Performed By: #### B MP #### [facility] [address] [place] [address] Dr. Ibis Jimenez Potassium [Moles/Vol] 3.4 mmol/L Critically low 3.5-5.1 [facility] Comment on above: Performed By: #### B MP #### [facility] [address] [address] [address] Ibis Jimenez Sodium [Moles/Vol] 137 mmol/L Normal 136-145 [facility] Comment on above: Performed By: #### B MP #### [facility] [address] [address] [address] Ibis Jimenez Urea nitrogen [Mass/Vol] 17.0 mg/dL Normal 7.0-18.0 [facility] Comment on above: Performed By: #### B MP #### [facility] [address] [place], [place] [address] Dr. Ibis Jimenez Urea nitrogen/Creatinine [Mass ratio] 23.9 mg/mg Normal [facility] Comment on above: Performed By: #### B MP #### [facility] [address] [place], [place] [address] Dr. Ibis Jimenez Basic Metab w/rfx MGon 10-20 (cont.) Normal [facility] Comment on above: Result Comment: Aver age GFR for 20-29 years old: 116 mL/min/1.73sq m Chronic Kidney Disease: <60 mL/min/1.73sq m Kidney failure: <15 mL/min/1.73sq m eGFR calculated using average adult body mass. Additional eGFR calculator available at: http://www.[employer]/multiple_crcl_2012.htm Performed By: #### B MPX #### [address] [address] [employer]: Tavon Nicole MD Anion gap [Moles/Vol] 10 mmol/L Normal 9-17 [facility] Comment on above: Performed By: #### B MPX #### [address] [address] [employer]: Tavon Nicole MD Calcium [Mass/Vol] 7.8 mg/dL Low 8.6-10.4 [facility] Comment on above: Performed By: #### B MPX #### [address] [address] [employer]: Tavon Nicole MD Chloride [Moles/Vol] 109 mmol/L High 98-107 [facility] Comment on above: Performed By: #### B MPX #### [facility] [employer] [address] [place] [id number] [employer]: Tavon Nicole MD CO2 [Moles/Vol] 20 mmol/L Normal - [facility] Comment on above: Performed By: #### B MPX #### [address] [address] [employer]: Tavon Nicole MD Creatinine [Mass/Vol] 0.45 mg/dL Low 0.50-0.90 [facility] Comment on above: Performed By: #### B MPX #### [address] [address] [employer]: Tavon Nicole MD GFR, Amer >60 Normal >60 [facility] Comment on above: Performed By: #### B MPX #### [address] [address] [employer]: Tavon Nicole MD GFR,non Amer >60 Normal >60 [facility] Comment on above: Performed By: #### B MPX #### [address] [address] [employer]: Tavon Nicole MD Glucose [Mass/Vol] 84 mg/dL Normal 70-99 [facility] Comment on above: Performed By: #### B MPX #### [address] [address] [employer]: Tavon Nicole MD Potassium [Moles/Vol] 4.1 mmol/L Normal 3.7-5.3 [facility] Comment on above: Result Comment: SPEC IMEN SLIGHTLY HEMOLYZED, RESULTS MAY BE ADVERSELY AFFECTED. Performed By: #### B MPX #### [address] [address] [employer]: Tavon Nicole MD Sodium [Moles/Vol] 139 mmol/L Normal 135-144 [facility] Comment on above: Performed By: #### B MPX #### [address] [address] [employer]: Tavon Nicole MD Urea nitrogen [Mass/Vol] 8 mg/dL Normal 6-20 [facility] Comment on above: Performed By: #### B MPX #### [facility] [address] [place] [address] [employer]: Tavon Nicole MD Basic Metabolic Panel w/ Ref rossi to MGon 10-20-2021 Anion gap [Moles/Vol] 10 mmol/L 9 - 17 mmol/L [facility] Calcium [Mass/Vol] 7.8 mg/dL Low 8.6 - 10. 4 mg/dL [facility] [employer] Chloride [Moles/Vol] 109 mmol/L High 98 - 10 7 mmol/L [facility] [employer] CO2 [Moles/Vol] 20 mmol/L 20 - 31 mmol/L [facility] [employer] Creatinine [Mass/Vol] 0.45 mg/dL Low 0.5 - 0.9 mg/dL [facility] GFR >60 60 - PI NF mL/min [facility] GFR Non- >60 60 - PINF mL/min [facility] GFR/1.73 sq M.predicted MDRD (S/P/Bld) [Vol rate/Area] [facility] [employer] [facility] Comment on above: Average GFR for 20-2 9 years old: 116 mL/min/1.73sq m Chronic Kidney Disease: <60 mL/min/1.73sq m Kidney failure: <15 mL/min/1.73sq m eGFR calculated using average adult body mass. Additional eGFR calculator available at: http://www.[employer]/multiple_crcl_2012.htm Glucose [Mass/Vol] 84 mg/dL 70 - 99 mg/dL [facility] Interpretation and review of laboratory results Abnormal [facility] Potassium [Moles/Vol] 4.1 mmol/L 3.7 - 5.3 mmol/L [facility] [employer] [facility] Comment on above: SPECIMEN SLIGHTLY HE MOLYZED, RESULTS MAY BE ADVERSELY AFFECTED. Sodium [Moles/Vol] 139 mmol/L 135 - 144 mmol/L [facility] Urea nitrogen (BldV) [Mass/Vol] 8 mg/dL 6 - 20 mg/dL [facility] CBC with Auto Differentialon 10-20-2021 Absolute Eos # 0.15 [facility] Absolute Immature Granulocyte [facility] Absolute Lymph # 1.48 [facility] Absolute Pinal # 0.28 [facility] Basophils (Bld) [#/Vol] 0.03 10*3/uL [facility] Basophils/100 WBC (Bld) 1 % 0 - 2 % [facility] Eosinophils/100 WBC (Bld) 3 % 1 - 4 % [facility] Hematocrit (Bld) [Volume fraction] 35.5 % Low 36.3 - 47.1 % [facility] Hemoglobin (Bld) [Mass/Vol] 11.3 g/dL Low 11.9 - 15.1 g/dL [facility] Immature granulocytes/100 WBC (Bld) 0 % 0 [facility] Interpretation and review of laboratory results Abnormal [facility] Lymphocytes/100 WBC (Bld) 34 % 24 - 43 % [facility] MCH (RBC) [Entitic mass] 27.9 pg 25.2 - 33.5 pg [facility] MCHC (RBC) [Mass/Vol] 31.8 g/dL 28.4 - 34.8 g/dL [facility] MCV (RBC) [Entitic vol] 87.7 fL 82.6 - 102.9 fL [facility] Monocytes/100 WBC (Bld) 6 % 3 - 12 % [facility] NRBC Automated 0.0 0.0 per 100 WBC [facility] Platelet distribution width (Bld) [Ratio] 12.9 % 11.8 - 14.4 % [facility] Platelets (Bld) [#/Vol] See Reflexed IPF Result [facility] RBC (Bld) [#/Vol] 4.05 10*6/uL 3.95 - 5.1 1 m/uL [facility] Segmented neutrophils/100 WBC (Bld) 55 % 36 - 65 % [facility] Segs Absolute 2.42 [facility] WBC (Bld) [#/Vol] 4.4 10*3/uL [facility] CBC with Diffon 10-20-2021 Abs. Basophil 0.03 k/uL Normal 0.00-0.20 [facility] Comment on above: Performed By: #### C DP, IPF #### [address] [address] [employer]: Tavon Nicole MD Abs.Imm.Granulocyte <0.03 Normal 0.00-0.30 [facility] Comment on above: Performed By: #### C DP, IPF #### [place] [address] [employer]: Tavon Nicole MD Abs.Neutrophil (Seg) 2.42 k/uL Normal 1.50-8.10 [facility] Comment on above: Performed By: #### C DP, IPF #### [place] [address] [employer]: Tavon Nicole MD Basophils/100 WBC (Bld) 1 % Normal 0-2 [facility] Comment on above: Performed By: #### C DP, IPF #### [address] [address] [employer]: Tavon Nicole MD Eosinophils (Bld) [#/Vol] 0.15 10*3/uL Normal 0.00-0.44 [facility] Comment on above: Performed By: #### C DP, IPF #### [address] [address] [employer]: Tavon Nicole MD Eosinophils/100 WBC (Bld) 3 % Normal 1-4 [facility] Comment on above: Performed By: #### C DP, IPF #### [address] [address] [employer]: Tavon Nicole MD Immature granulocytes/100 WBC (Bld) 0 % Normal 0 [facility] Comment on above: Performed By: #### C DP, IPF #### [address] [address] [employer]: Tavon Nicole MD Lymphocytes (Bld) [#/Vol] 1.48 10*3/uL Normal 1.10-3.70 [facility] Comment on above: Performed By: #### C DP, IPF #### [address] [address] [employer]: Tavon Nicole MD Lymphocytes/100 WBC (Bld) 34 % Normal 24-43 [facility] Comment on above: Performed By: #### C DP, IPF #### [address] [address] [employer]: Tavon Nicole MD Monocytes (Bld) [#/Vol] 0.28 10*3/uL Normal 0.10-1.20 [facility] Comment on above: Performed By: #### C DP, IPF #### [address] [address] [employer]: Tavon Nicole MD Monocytes/100 WBC (Bld) 6 % Normal 3-12 [facility] Comment on above: Performed By: #### C DP, IPF #### [address] [address] [employer]: Tavon Nicole MD Neutrophil (Seg) 55 % Normal 36-65 [facility] Comment on above: Performed By: #### C DP, IPF #### [address] [address] [employer]: Tavon Nicole MD Erythrocyte distribution width (RBC) [Ratio] 12.9 % Normal 11.8-14.4 [facility] Comment on above: Performed By: #### C DP, IPF #### [address] [address] [employer]: Tavon Nicole MD Hematocrit (Bld) [Volume fraction] 35.5 % Low 36.3-47.1 [facility] Comment on above: Performed By: #### C DP, IPF #### [address] [address] [employer]: Tavon Nicole MD Hemoglobin (Bld) [Mass/Vol] 11.3 g/dL Low 11.9-15.1 [facility] Comment on above: Performed By: #### C DP, IPF #### [address] [address] [employer]: Tavon Nicole MD MCH (RBC) [Entitic mass] 27.9 pg Normal 25.2-33.5 [facility] Comment on above: Performed By: #### C DP, IPF #### [address] [address] [employer]: Tavon Nicole MD MCHC (RBC) [Mass/Vol] 31.8 g/dL Normal 28.4-34.8 [facility] Comment on above: Performed By: #### C DP, IPF #### [address] [address] [employer]: Tavon Nicole MD MCV (RBC) [Entitic vol] 87.7 fL Normal 82.6-102.9 [facility] Comment on above: Performed By: #### C DP, IPF #### [address] [address] [employer]: Tavon Nicole MD NRBC Automated 0.0 per 100 WBC Normal 0.0 [facility] Comment on above: Performed By: #### C DP, IPF #### [address] [address] [employer]: Tavon Nicole MD Platelet Count See Reflexed IPF Result Normal 138-453 [facility] Comment on above: Performed By: #### C DP, IPF #### [facility] [address] [place] [address] Potash Flaker: Tavon Nicole MD RBC (Bld) [#/Vol] 4.05 10*6/uL Normal 3.95-5.11 [facility] Comment on above: Performed By: #### C DP, IPF #### [facility] [address] [place] [address] Potash Flaker: Tavon Nicole MD WBC (Bld) [#/Vol] 4.4 10*3/uL Normal 3.5-11.3 [facility] Comment on above: Performed By: #### C DP, IPF #### [facility] [employer] [address] [place] [phone] Potash Flaker: Tavon Nicole MD EEG video monitoringon 10-20 Raiza Land MD 10/20/2021 12:11 PM Referring physician: Chris Blanchard APRN Date:10/20/2021 Start Time:10/19/2021 @1258 End Time: 10/20/2021 @ 1200 Indication Patient with recurrent events Introduction This continuous video-EEG was acquired using a [employer] workstation at 256 samples/s. Electrodes were placed [...] Board Certified. Neurology Board Certified. Electronically Signed [facility] [employer] Work Phone: EEG video monitoringOrdered By: Raiza Land on 10-20-2021 [facility] Work Phone: Immature Platelet Fractionon 10-20-2021 Platelet, Fluorescence Platelet clumps present, count appears adequate. [facility] PLT, Immature Fract.on 10-20 Platelet, Fluoresc. Platelet clumps present, count appears adequate. Normal 138-453 [facility] Comment on above: Performed By: #### C DP, IPF #### [facility] [place] [address] Potash Flaker: Tavon Nicole MD PROLACTINon 10-20-2021 Prolactin 41.7 ng/mL Critically high 4.8-23.3 [facility] Comment on above: Performed By: #### C VDTBH #### [facility] [address] [place], [place] [address] Dr. Ibis Jimenez CBCon 10-19-2021 Erythrocyte distribution width (RBC) [Ratio] 12.9 % Normal 11.8-14.4 [facility] Comment on above: Performed By: #### T ROPI, LACTIC, CMPX, CBC #### [facility] [employer] [facility] [address] [place], [place] [phone] Potash Flaker: Tavon Nicole MD Hematocrit (Bld) [Volume fraction] 31.5 % Low 36.3-47.1 [facility] Comment on above: Performed By: #### T ROPI, LACTIC, CMPX, CBC #### [address] [address] Potash Flaker: Tavon Nicole MD Hemoglobin (Bld) [Mass/Vol] 10.8 g/dL Low 11.9-15.1 [facility] Comment on above: Performed By: #### T ROPI, LACTIC, CMPX, CBC #### [address] [address] Potash Flaker: Tavon Nicole MD MCH (RBC) [Entitic mass] 29.1 pg Normal 25.2-33.5 [facility] Comment on above: Performed By: #### T ROPI, LACTIC, CMPX, CBC #### [place] [address] Potash Flaker: Tavon Nicole MD MCHC (RBC) [Mass/Vol] 34.3 g/dL Normal 28.4-34.8 [facility] Comment on above: Performed By: #### T ROPI, LACTIC, CMPX, CBC #### [place] [address] Potash Flaker: Tavon Nicole MD MCV (RBC) [Entitic vol] 84.9 fL Normal 82.6-102.9 [facility] Comment on above: Performed By: #### T ROPI, LACTIC, CMPX, CBC #### [place] [address] Potash Flaker: Tavon Nicole MD NRBC Automated 0.0 per 100 WBC Normal 0.0 [facility] Comment on above: Performed By: #### T ROPI, LACTIC, CMPX, CBC #### [place] [address] Potash Flaker: Tavon Nicole MD Platelet mean volume (Bld) [Entitic vol] 9.8 fL Normal 8.1-13.5 [facility] Comment on above: Performed By: #### T ROPI, LACTIC, CMPX, CBC #### [facility] [place], [place] [phone] Potash Flaker: Tavon Nicole MD Platelets (Bld) [#/Vol] 281 10*3/uL Normal 138-453 [facility] Comment on above: Performed By: #### T ROPI, LACTIC, CMPX, CBC #### [facility] [address] [place] [phone] Potash Flaker: Tavon Nicole MD RBC (Bld) [#/Vol] 3.71 10*6/uL Low 3.95-5.11 [facility] Comment on above: Performed By: #### T ROPI, LACTIC, CMPX, CBC #### [facility] [address] [place] [address] Potash Flaker: Tavon Nicole MD WBC (Bld) [#/Vol] 5.0 10*3/uL Normal 3.5-11.3 [facility] Comment on above: Performed By: #### T ROPI, LACTIC, CMPX, CBC #### [facility] [address] [place] [phone] Potash Flaker: Tavon Nicole MD Hematocrit (Bld) [Volume fraction] 31.5 % Low 36.3 - 47.1 % [facility] Hemoglobin (Bld) [Mass/Vol] 10.8 g/dL Low 11.9 - 15.1 g/dL [facility] Interpretation and review of laboratory results Abnormal [facility] MCH (RBC) [Entitic mass] 29.1 pg 25.2 - 33.5 pg [facility] MCHC (RBC) [Mass/Vol] 34.3 g/dL 28.4 - 34.8 g/dL [facility] MCV (RBC) [Entitic vol] 84.9 fL 82.6 - 102.9 fL [facility] NRBC Automated 0.0 0.0 per 100 WBC [facility] Platelet distribution width (Bld) [Ratio] 12.9 % 11.8 - 14.4 % [facility] Platelet mean volume (Bld) [Entitic vol] 9.8 fL 8.1 - 13.5 fL [facility] Platelets (Bld) [#/Vol] 281 10*3/uL [facility] RBC (Bld) [#/Vol] 3.71 10*6/uL Low 3.95 - 5.1 1 m/uL [facility] WBC (Bld) [#/Vol] 5.0 10*3/uL [facility] CBC AUTO DIFFon 10-19-2021 EO # 0.2 103/ul Normal 0.0-0.7 [facility] Comment on above: Performed By: #### A MM #### [facility] [address] [place] [address] Dr. Ibis Jimenez Eosinophils/100 WBC (Bld) 3.9 % Normal 0.9-7.0 [facility] Comment on above: Performed By: #### A MM #### [facility] [address] [place] [address] [address] Ibis Jimenez Erythrocyte distribution width (RBC) [Ratio] 13.1 % Normal 11.0-15.0 [facility] Comment on above: Performed By: #### A MM #### [facility] [address] [place] [address] [address] Ibis Jimenez Hematocrit (Bld) [Volume fraction] 33.4 % Critically low 36.0-48.0 [facility] Comment on above: Performed By: #### A MM #### [facility] [address] [place] [address] [address] Ibis Jimenez Hemoglobin (Bld) [Mass/Vol] 11.1 g/dL Critically low 12.0-16.0 [facility] Comment on above: Performed By: #### A MM #### [facility] [address] [address] [address] Ibsi Jimenez LYMPH # 1.2 103/ul Normal 1.2-3.8 [facility] Comment on above: Performed By: #### A MM #### [facility] [address] [place] [address] Dr. Ibis Jimenez Lymphocytes/100 WBC (Bld) 25.9 % Normal 20.5-60.0 [facility] Comment on above: Performed By: #### A MM #### [facility] [address] [place] [address] Dr. Ibis Jimenez MCHC (RBC) [Mass/Vol] 33.2 g/dL Normal 29.9-35.2 [facility] Comment on above: Performed By: #### A MM #### [facility] [address] [place] [address] Dr. Ibis Jimenez MCV (RBC) [Entitic vol] 85.9 fL Normal 81.0-99.0 [facility] Comment on above: Performed By: #### A MM #### [facility] [address] [place] [address] Dr. Ibis Jimenez Monocytes/100 WBC (Bld) 7.7 % Normal 1.7-12.0 [facility] Comment on above: Performed By: #### A MM #### [facility] [address] [place] [address] Dr. Ibis Jimenez NEUT # 2.9 103/ul Normal 1.4-6.5 [facility] Comment on above: Performed By: #### A MM #### [facility] [address] [place] [address] Dr. Ibis Jimenez Neutrophils/100 WBC (Bld) 61.5 % Normal 43.0-75.0 [facility] Comment on above: Performed By: #### A MM #### [facility] [address] [place] [address] Dr. Ibis Jimenez PLT 264 103/ul Normal 150-450 [facility] Comment on above: Performed By: #### A MM #### [facility] [address] [place] [address] Dr. Ibis Jimenez RBC 3.89 106/ul Critically low 4.20-5.40 [facility] Comment on above: Performed By: #### A MM #### [facility] [address] [place] [address] Dr. Ibis Jimenez WBC 4.7 103/ul Normal 4.0-11.0 [facility] Comment on above: Performed By: #### A MM #### [facility] [address] [place] [address] Dr. Ibis Jimenez BASO # 0.0 103/ul Normal 0.0-0.1 [facility] Comment on above: Performed By: #### A MM #### [facility] [address] [place] [address] Dr. Ibis Jimenez Performed By: #### C VDTBH #### [facility] [address] [place] [address] Dr. Ibis Jimenez Basophils/100 WBC (Bld) 0.6 % Normal 0.2-2.0 [facility] Comment on above: Performed By: #### A MM #### [facility] [address] [place] [address] Dr. Ibis Jimenez Performed By: #### C VDTB #### [facility] [address] [place] [address] Dr. Ibis Jimenez EO # 0.3 103/ul Normal 0.0-0.7 [facility] Comment on above: Performed By: #### C VDTBH #### [facility] [address] [place] [address] Dr. Ibis Jimenez Eosinophils/100 WBC (Bld) 5.0 % Normal 0.9-7.0 [facility] Comment on above: Performed By: #### C VDTBH #### [facility] [address] [place] [address] Dr. Ibis Jimenez Erythrocyte distribution width (RBC) [Ratio] 12.8 % Normal 11.0-15.0 [facility] Comment on above: Performed By: #### C VDTBH #### [facility] [address] [place] [address] Dr. Ibis Jimenez Hematocrit (Bld) [Volume fraction] 38.0 % Normal 36.0-48.0 [facility] Comment on above: Performed By: #### C VDTBH #### [facility] [address] [place] [address] Dr. Ibis Jimenez Hemoglobin (Bld) [Mass/Vol] 12.7 g/dL Normal 12.0-16.0 [facility] Comment on above: Performed By: #### C VDTBH #### [facility] [address] [place] [address] Dr. Ibis Jimenez IG # 0.02 10e3/ul Normal 0.00-0.03 [facility] Comment on above: Performed By: #### A MM #### [facility] [address] [place] [address] Dr. Ibis Jimenez Performed By: #### C VDTBH #### [facility] [address] [place] [address] Dr. Ibis Jimenez IG % 0.4 % Normal 0.0-0.5 [facility] Comment on above: Performed By: #### A MM #### [facility] [address] [place] [address] Dr. Ibis Jimenez Performed By: #### C VDTBH #### [facility] [address] [place] [address] Dr. Ibis Jimenez LYMPH # 1.7 103/ul Normal 1.2-3.8 [facility] Comment on above: Performed By: #### C VDTBH #### [facility] [address] [place] [address] Dr. Ibis Jimenez Lymphocytes/100 WBC (Bld) 30.7 % Normal 20.5-60.0 [facility] Comment on above: Performed By: #### C VDTBH #### [facility] [address] [place] [address] Dr. Ibsi Jimenez MANUAL DIFF REQ NO Normal [facility] Comment on above: Performed By: #### A MM #### [facility] [address] [place] [address] Dr. Ibis Jimenez Performed By: #### C VDTBH #### [facility] [address] [place] [address] Dr. Ibis Jimenez MCH (RBC) [Entitic mass] 28.5 pg Normal 26.7-34.0 [facility] Comment on above: Performed By: #### A MM #### [facility] [address] [place] [address] Dr. Ibis Jimenez Performed By: #### C VDTBH #### [facility] [address] [place] [address] Dr. Ibis Jimenez MCHC (RBC) [Mass/Vol] 33.4 g/dL Normal 29.9-35.2 [facility] Comment on above: Performed By: #### C VDTBH #### [facility] [address] [place] [address] Dr. Ibis Jimenez MCV (RBC) [Entitic vol] 85.2 fL Normal 81.0-99.0 [facility] Comment on above: Performed By: #### C VDTBH #### [facility] [address] [place] [address] Dr. Ibis Jimenez MONO # 0.4 103/ul Normal 0.3-0.8 [facility] Comment on above: Performed By: #### A MM #### [facility] [address] [place] [address] Dr. Ibis Jimenez Performed By: #### C VDTBH #### [facility] [address] [place] [address] Dr. Ibis Jimenez Monocytes/100 WBC (Bld) 8.1 % Normal 1.7-12.0 [facility] Comment on above: Performed By: #### C VDTBH #### [facility] [address] [place] [address] Dr. Iibs Jimenez NEUT # 3.0 103/ul Normal 1.4-6.5 [facility] Comment on above: Performed By: #### C VDTBH #### [facility] [address] [place] [address] Dr. Ibis Jimenez Neutrophils/100 WBC (Bld) 55.2 % Normal 43.0-75.0 [facility] Comment on above: Performed By: #### C VDTBH #### [facility] [address] [place] [address] Dr. Ibis Jimenez Platelet mean volume (Bld) [Entitic vol] 9.5 fL Normal 9.5-13.5 [facility] Comment on above: Performed By: #### A MM #### [facility] [address] [place] [address] Dr. Ibis Jimenez Performed By: #### C VDTBH #### [facility] [address] [place] [address] Dr. Ibis Jimenez PLT 343 103/ul Normal 150-450 [facility] Comment on above: Performed By: #### C VDTBH #### [facility] [address] [place] [address] Dr. Ibis Jimenez RBC 4.46 106/ul Normal 4.20-5.40 [facility] Comment on above: Performed By: #### C VDTBH #### [facility] [address] [place] [address] Dr. Ibis Jimenez WBC 5.4 103/ul Normal 4.0-11.0 [facility] Comment on above: Performed By: #### C VDTBH #### [facility] [address] [place] [address] HEAD WO CONon [...] Metabolic Pr/rfx MGon 0 10-19-2021 (cont.) Normal [facility] Comment on above: Result Comment: Aver age GFR for 20-29 years old: 116 mL/min/1.73sq m Chronic Kidney Disease: <60 mL/min/1.73sq m Kidney failure: <15 mL/min/1.73sq m eGFR calculated using average adult body mass. Additional eGFR calculator available at: http://www.[employer]/multiple_crcl_2011.htm Performed By: #### T ROPI, LACTIC, CMPX, CBC #### [facility] [address] [place] [address] Potash Flaker: Tavon Nicole MD Albumin [Mass/Vol] 3.5 g/dL Normal 3.5-5.2 [facility] Comment on above: Performed By: #### T ROPI, LACTIC, CMPX, CBC #### [facility] [address] [place] [address] Potash Flaker: Tavon Nicole MD Albumin/Glob Ratio 1.4 Normal 1.0-2.5 [facility] Comment on above: Performed By: #### T ROPI, LACTIC, CMPX, CBC #### [facility] [address] [place] [address] Potash Flaker: Tavon Nicole MD Alkaline Phos 69 U/L Normal 35-104 [facility] Comment on above: Performed By: #### T ROPI, LACTIC, CMPX, CBC #### [facility] [address] [place] [address] Potash Flaker: Tavon Nicole MD ALT [Catalytic activity/Vol] 15 U/L Normal 5-33 [facility] Comment on above: Performed By: #### T ROPI, LACTIC, CMPX, CBC #### [facility] [address] [place] [address] Potash Flaker: Tavon Nicole MD Anion gap [Moles/Vol] 13 mmol/L Normal 9-17 [facility] Comment on above: Performed By: #### T ROPI, LACTIC, CMPX, CBC #### [facility] [employer] [address] [place] [address] Potash Flaker: Tavon Nicole MD AST [Catalytic activity/Vol] 12 U/L Normal <32 [facility] Comment on above: Performed By: #### T ROPI, LACTIC, CMPX, CBC #### [facility] [address] [place] [address] Potash Flaker: Tavon Nicole MD Bilirubin [Mass/Vol] 0.24 mg/dL Low 0.3-1.2 [facility] Comment on above: Performed By: #### T ROPI, LACTIC, CMPX, CBC #### [facility] [address] [place] [address] Potash Flaker: Tavon Nicole MD Calcium [Mass/Vol] 8.1 mg/dL Low 8.6-10.4 [facility] Comment on above: Performed By: #### T ROPI, LACTIC, CMPX, CBC #### [facility] [employer] [address] [place] [address] Potash Flaker: Tavon Nicole MD Chloride [Moles/Vol] 107 mmol/L Normal 98-107 [facility] Comment on above: Performed By: #### T ROPI, LACTIC, CMPX, CBC #### [facility] [address] [place] [address] Potash Flaker: Tavon Nicole MD CO2 [Moles/Vol] 19 mmol/L Low 20-31 [facility] Comment on above: Performed By: #### T ROPI, LACTIC, CMPX, CBC #### [facility] [address] [place] [address] Potash Flaker: Tavon Nicole MD Creatinine [Mass/Vol] 0.53 mg/dL Normal 0.50-0.90 [facility] Comment on above: Performed By: #### T ROPI, LACTIC, CMPX, CBC #### [facility] [address] [place] [address] Potash Flaker: Tavon Nicole MD GFR, Amer >60 Normal >60 [facility] Comment on above: Performed By: #### T ROPI, LACTIC, CMPX, CBC #### [facility] [address] [place] [address] Potash Flaker: Tavon Nicole MD GFR,non Amer >60 Normal >60 [facility] Comment on above: Performed By: #### T ROPI, LACTIC, CMPX, CBC #### [facility] [address] [place] [address] Potash Flaker: Tavon Nicole MD Glucose [Mass/Vol] 81 mg/dL Normal 70-99 [facility] Comment on above: Performed By: #### T ROPI, LACTIC, CMPX, CBC #### [facility] [address] [place] [address] Potash Flaker: Tavon Nicole MD Potassium [Moles/Vol] 3.9 mmol/L Normal 3.7-5.3 [facility] Comment on above: Performed By: #### T ROPI, LACTIC, CMPX, CBC #### [facility] [employer] [address] [place] [address] Potash Flaker: Tavon Nicole MD Protein [Mass/Vol] 6.0 g/dL Low 6.4-8.3 [facility] Comment on above: Performed By: #### T ROPI, LACTIC, CMPX, CBC #### [facility] [address] [place] [address] Potash Flaker: Tavon Nicole MD Sodium [Moles/Vol] 139 mmol/L Normal 135-144 [facility] Comment on above: Performed By: #### T ROPI, LACTIC, CMPX, CBC #### [facility] [address] [place], [place] [phone] Potash Flaker: Tavon Nicole MD Urea nitrogen [Mass/Vol] 10 mg/dL Normal 6-20 [facility] Comment on above: Performed By: #### T ROPI, LACTIC, CMPX, CBC #### [facility] [address] [place], [place] [phone] Potash Flaker: Tavon Nicole MD Comprehensive Metabolic Pane l w/ Reflex to MGon 10-19-2021 Albumin [Mass/Vol] 3.5 g/dL 3.5 - 5.2 g/dL [facility] Albumin/Globulin [Mass ratio] 1.4 {ratio} 1 - 2.5 [facility] ALP (Bld) [Catalytic activity/Vol] 69 U/L 35 - 104 U/L [facility] ALT [Catalytic activity/Vol] 15 U/L 5 - 33 U/L [facility] Anion gap [Moles/Vol] 13 mmol/L 9 - 17 mmol/L [facility] AST [Catalytic activity/Vol] 12 U/L NINF - 32 U/L [facility] Bilirubin [Mass/Vol] 0.24 mg/dL Low 0.3 - 1 .2 mg/dL [facility] Calcium [Mass/Vol] 8.1 mg/dL Low 8.6 - 10. 4 mg/dL [facility] Chloride [Moles/Vol] 107 mmol/L 98 - 10 7 mmol/L [facility] CO2 [Moles/Vol] 19 mmol/L Low 20 - 31 mmol/L [facility] Creatinine [Mass/Vol] 0.53 mg/dL 0.5 - 0.9 mg/dL [facility] Free PSA/Total PSA [Mass fraction] 6.0 g/dL Low 6.4 - 8.3 g/dL [facility] GFR >60 60 - PI NF mL/min [facility] GFR Non- >60 60 - PINF mL/min [facility] GFR/1.73 sq M.predicted MDRD (S/P/Bld) [Vol rate/Area] [facility] Comment on above: Average GFR for 20-2 9 years old: 116 mL/min/1.73sq m Chronic Kidney Disease: <60 mL/min/1.73sq m Kidney failure: <15 mL/min/1.73sq m eGFR calculated using average adult body mass. Additional eGFR calculator available at: http://www.[employer]/multiple_crcl_2012.htm Glucose [Mass/Vol] 81 mg/dL 70 - 99 mg/dL [facility] Interpretation and review of laboratory results Abnormal [facility] Potassium [Moles/Vol] 3.9 mmol/L 3.7 - 5.3 mmol/L [facility] Sodium [Moles/Vol] 139 mmol/L 135 - 144 mmol/L [facility] Urea nitrogen (BldV) [Mass/Vol] 10 mg/dL 6 - 20 mg/dL [facility] Covid-19 PCR (CVDTBH)on 09-22 SARS-CoV-2 (COVID-19) RNA SAURABH+probe Ql (Unsp spec) Not detected Normal NOT DETECTED [facility] Comment on above: Result Comment: When diagnostic [...] for this test is supported by the [place] of Health and Human Service's declaration that [...] used). Performed By: #### C VDTBH #### [facility] [address] [place] [address] Dr. Ibis Jimenez DRUG SCREEN RAPID (URINE)on 10-19-2021 AMP Negative Normal NEGATIVE [facility] Comment on above: Performed By: #### B MP #### [facility] [address] [place] [address] Dr. Ibis Jimenez BAR Positive Abnormal NEGATIVE [facility] Comment on above: Performed By: #### B MP #### [facility] [address] [place] [address] Dr. Ibis Jimenez BUP Negative Normal NEGATIVE [facility] Comment on above: Performed By: #### B MP #### [facility] [address] [place] [address] Dr. Ibis Jimenez BZO Positive Abnormal NEGATIVE [facility] Comment on above: Performed By: #### B MP #### [facility] [address] [place] [address] Dr. Ibis Jimenez SEMAJ Negative Normal NEGATIVE [facility] Comment on above: Performed By: #### B MP #### [facility] [address] [place] [address] Dr. Ibis Jimenez CUT-OFFS SEE BELOW Normal [facility] Comment on above: Result Comment: AMP [...] ng/mL Performed By: #### B MP #### [facility] [address] [place] [address] Dr. Ibis Jimenez DRUG CUT HEADER DRUG CLASS TEST SYSTEM CUT-OFF CONCENTRATIONS ARE FOLLOWS: Normal [facility] Comment on above: Performed By: #### B MP #### [facility] [address] [address] [address] Ibis Jimenez mAMP Negative Normal NEGATIVE [facility] Comment on above: Performed By: #### B MP #### [facility] [address] [address] [address] Ibis Jimenez MTD Negative Normal NEGATIVE [facility] Comment on above: Performed By: #### B MP #### [facility] [address] [place], [place] [address] Dr. Ibis Jimenez OPI Positive Abnormal NEGATIVE [facility] Comment on above: Performed By: #### B MP #### [facility] [address] [place] [address] Dr. Ibis Jimenez OXY Positive Abnormal NEGATIVE [facility] Comment on above: Performed By: #### B MP #### [facility] [address] [place] [address] Dr. Ibis Jimenez PCP Negative Normal NEGATIVE [facility] Comment on above: Performed By: #### B MP #### [facility] [address] [place] [address] Dr. Ibis Jimenez PPX Negative Normal NEGATIVE [facility] Comment on above: Performed By: #### B MP #### [facility] [address] [place] [address] Dr. Ibis Jimenez TCA Negative Normal NEGATIVE [facility] Comment on above: Performed By: #### B MP #### [facility] [address] [place] [address] Dr. Ibis Jimenez THC Negative Normal NEGATIVE [facility] Comment on above: Performed By: #### B MP #### [facility] [address] [place] [address] Dr. Ibis Jimenez ER URINE PROFILEon 2 Bilirubin Ql (U) Negative Normal NEGATIVE [facility] Comment on above: Performed By: #### B MP #### [facility] [address] [place] [address] Dr. Ibis Jimenez Clarity (U) CLEAR Normal CLEAR [facility] Comment on above: Performed By: #### B MP #### [facility] [address] [place] [address] Dr. Ibis Jimenez Color (U) YELLOW Normal YELLOW [facility] Comment on above: Performed By: #### B MP #### [facility] [address] [place] [address] Dr. Ibis RODRIGUEZ A micrscopic examination will be performed if indicated. Normal [facility] Comment on above: Performed By: #### B MP #### [facility] [address] [place] [address] Dr. Ibis Jimenez Glucose Ql (U) Negative Normal NEGATIVE [facility] Comment on above: Performed By: #### B MP #### [facility] [address] [place] [address] Dr. Ibis Jiemnez Hemoglobin Ql (U) TRACE-INTACT Abnormal NEGATIVE [facility] Comment on above: Performed By: #### B MP #### [facility] [address] [place] [address] Dr. Ibis Jimenez Ketones Ql (U) Negative Normal NEGATIVE [facility] Comment on above: Performed By: #### B MP #### [facility] [address] [place] [address] Dr. Ibis Jimenez LEUKOCYTES Negative Normal NEGATIVE [facility] Comment on above: Performed By: #### B MP #### [facility] [address] [place] [address] Dr. Ibis Jimenez Nitrite Ql (U) Negative Normal NEGATIVE [facility] Comment on above: Performed By: #### B MP #### [facility] [address] [place] [address] Dr. Ibis Jimenez pH (U) 5.5 [pH] Normal 5-9 [facility] Comment on above: Performed By: #### B MP #### [facility] [address] [place] [address] Dr. Ibis Jimenez SPEC GRAVITY >=1.030 Abnormal 1.005-<=1.02 5 [facility] Comment on above: Performed By: #### B MP #### [facility] [address] [place] [address] Dr. Ibis Jimenez UA PROTEIN Negative Normal NEGATIVE/ TRACE [facility] Comment on above: Performed By: #### B MP #### [facility] [address] [place] [address] Dr. Ibis Jimenez UR MICRO IND INDICATED Normal [facility] Comment on above: Performed By: #### B MP #### [facility] [address] [place] [address] Dr. Ibis Jimenez Urobilinogen Qn (U) 0.2 {Dinorah'U}/dL Normal 0.2 - 1. 0 [facility] Comment on above: Performed By: #### B MP #### [facility] [address] [place] [address] Dr. Ibis Jimenez LACTATE/LACTIC ACIDon 2021 Lactate [Moles/Vol] 1.2 mmol/L Normal 0.4-1.9 [facility] Comment on above: Performed By: #### A MM #### [facility] [address] [place] [address] Dr. Ibis Jimenez Lactic Acidon 10-19-2021 Lactic Acid,Whole Bl 0.9 mmol/L Normal 0.7-2.1 [facility] Comment on above: Performed By: #### T ROPI, LACTIC, CMPX, CBC #### [facility] [id number] [employer]: Tavon Nicole MD Lactic Acid, Whole Blood 0.9 mmol/L 0.7 - 2.1 mmol/L [facility] MONOon 10-19-2021 Monocytes (Bld) [#/Vol] Negative Normal NEGATIVE [facility] Comment on above: Performed By: #### M DAVID #### [facility] [address] [place] [address] Dr. Ibis Jimenez MRI BRAIN W WO [...] Carlos Marks DO 10/19/21 Final result Normal [facility] Unremarkable MR brain. [facility] R[facility]ATED EXAMINATION: MRI OF THE [...] The soft tissues demonstrate no acute abnormality. [facility] R[facility] KendrickCarlos cedeno, DO - 10/19/2021 EXAMINATION: MRI OF THE [...] no acute abnormality. IMPRESSION: Unremarkable MR brain. [employer] Phone: Radiology Study observation (narrative) [employer] Phone: MRI BRAIN W WO CONTRASTOrder ed By: Carlos Marks on 10-19-2021 [employer] [facility] Phone: PH VENOUS BLOODon 10-19-2021 PCO2 VENOUS 36.6 mmHg Critically low 40.0-52.0 [facility] Comment on above: Performed By: #### B MP #### [facility] [address] [place] [address] [address] [address] Ibis Jimenez pH VENOUS 7.387 Normal 7.330-7.430 [facility] Comment on above: Performed By: #### B MP #### [facility] [address] [place], [place] [address] Dr. Ibis Jimenez PROF CHEM 8 (BAS METB)on Anion gap [Moles/Vol] 11.9 mmol/L Normal Th [facility] Comment on above: Performed By: #### M DAVID #### [facility] [address] [place] [address] [address] Ibis Jimenez Calcium [Mass/Vol] 9.1 mg/dL Normal 8.5-10.1 [facility] Comment on above: Performed By: #### M DAVID #### [facility] [address] [place] [address] [address] Ibis Jimenez Chloride [Moles/Vol] 104 mmol/L Normal 98-107 [facility] Comment on above: Performed By: #### M DAVID #### [facility] [address] [place] [address] Dr. Ibis Jimenez CO2 [Moles/Vol] 26.7 mmol/L Normal 21.0-32.0 [facility] Comment on above: Performed By: #### M DAVID #### [facility] [address] [place] [address] Dr. Ibis Jimenez Creatinine [Mass/Vol] 0.78 mg/dL Normal 0.55-1.02 [facility] Comment on above: Performed By: #### M DAVID #### [facility] [address] [place] [address] Dr. Ibis Jimenez EGFR-AF ALGERIAN >60 Normal >=60 [facility] Comment on above: Performed By: #### M DAVID #### [facility] [address] [place] [address] [address] Ibis Jimenez EGFR-NON AF ALGERIAN >60 Normal >=60 [facility] Comment on above: Performed By: #### M DAVID #### [facility] [address] [place] [address] Dr. Ibis Jimenez Glucose [Mass/Vol] 96 mg/dL Normal 74-106 [facility] Comment on above: Performed By: #### M DAVID #### [facility] [address] [place] [address] Dr. Ibis Jimenez Potassium [Moles/Vol] 3.6 mmol/L Normal 3.5-5.1 [facility] Comment on above: Performed By: #### M DAVID #### [facility] [address] [place] [address] [address] Ibis Jimenez Sodium [Moles/Vol] 139 mmol/L Normal 136-145 [facility] Comment on above: Performed By: #### M DAVID #### [facility] [address] [place] [address] [address] Ibis Jimenez Urea nitrogen [Mass/Vol] 14.0 mg/dL Normal 7.0-18.0 [facility] Comment on above: Performed By: #### M DAVID #### [facility] [address] [place] [address] Dr. Ibis Jimenez Urea nitrogen/Creatinine [Mass ratio] 17.9 mg/mg Normal [facility] Comment on above: Performed By: #### M DAVID #### [facility] [address] [place] [address] Dr. Ibis Jimenez TSHon 10-19-2021 TSH 1.389 uIU/mL Normal 0.358-3.740 [facility] Comment on above: Performed By: #### A CET, SALYC #### [facility] [address] [place] [address] Dr. Ibis Jimenez Troponinon 10-19-2021 Troponin, High Sens <6 Normal 0-14 [facility] Comment on above: Result Comment: High Sensitivity Troponin values cannot be compared with other Troponin methodologies. Patients with high levels of Biotin oral intake (i.e >5mg/day) may have falsely decreased Troponin levels. Samples collected within 8 hours of biotin intake may require additional information for diagnosis. Performed By: #### T ROPI, LACTIC, CMPX, CBC #### [facility] [employer] [address] [place] [address] [employer]: Tavon Nicole MD Troponin, High Sensitivity ng/L 0 - 14 ng/L [facility] Comment on above: High Sensitivity Troponin values cannot be compared with other Troponin methodologies. Patients with high levels of Biotin oral intake (i.e >5mg/day) may have falsely decreased Troponin levels. Samples collected within 8 hours of biotin intake may require additional information for diagnosis. [facility] URINE MICROSCOPIC ONLYon BACTERIA TRACE Abnormal NONE SEEN [facility] Comment on above: Performed By: #### B MP #### [facility] [address] [place] [address] Dr. Ibis Jimenez Bacteria identified Cx Nom (U) NOT INDICATED Normal [facility] Comment on above: Performed By: #### B MP #### [facility] [address] [place] [address] Dr. Ibis Jimenez CAST NONE SEEN Normal NONE SEEN [facility] Comment on above: Performed By: #### B MP #### [facility] [address] [place] [address] Dr. Ibis Jimenez Crystals LM Nom (Urine sed) NONE SEEN Normal NONE SEEN [facility] Comment on above: Performed By: #### B MP #### [facility] [address] [place] [address] Dr. Ibis Jimenez Epithelial cells LM Ql (Urine sed) RARE Normal NONE SEEN /RARE [facility] Comment on above: Performed By: #### B MP #### [facility] [address] [place] [address] Dr. Ibis Jimenez MUCOUS LARGE Abnormal NONE SEEN [facility] Comment on above: Performed By: #### B MP #### [facility] [address] [place] [address] Dr. Ibis Jimenez RBC 2-5 Abnormal 0-2 [facility] Comment on above: Performed By: #### B MP #### [facility] [address] [place] [address] Dr. Ibis Jimenez WBC 0-2 Abnormal NONE SEEN [facility] Comment on above: Performed By: #### B MP #### [facility] [address] [place] [address] ABD/PELVIS WO CONon [...] JASS LAURENT Date: 2021-10-06 20:08 Normal [facility] ER URINE PROFILEon 2 Bilirubin Ql (U) Negative Normal NEGATIVE [facility] Comment on above: Performed By: #### M DAVID #### [facility] [address] [place] [address] Dr. Ibis Jimenez Clarity (U) CLEAR Normal CLEAR [facility] Comment on above: Performed By: #### M DAVID #### [facility] [address] [place] [address] Dr. Ibis Jimenez Color (U) LT. YELLOW Normal YELLOW [facility] Comment on above: Performed By: #### M DAVID #### [facility] [address] [place] [address] Dr. Ibis RODRIGUEZ A micrscopic examination will be performed if indicated. Normal [facility] Comment on above: Performed By: #### M DAVID #### [facility] [address] [place] [address] [address] Ibis Jimenez Glucose Ql (U) Negative Normal NEGATIVE [facility] Comment on above: Performed By: #### M DAVID #### [facility] [address] [place] [address] [address] Ibis Jimenez Hemoglobin Ql (U) Negative Normal NEGATIVE [facility] Comment on above: Performed By: #### M DAVID #### [facility] [address] [place] [address] [address] Ibis Jimenez Ketones Ql (U) Negative Normal NEGATIVE [facility] Comment on above: Performed By: #### M DAVID #### [facility] [address] [place] [address] Dr. Ibis Jimenez LEUKOCYTES Negative Normal NEGATIVE [facility] Comment on above: Performed By: #### M DAVID #### [facility] [address] [place] [address] Dr. Ibis Jimenez Nitrite Ql (U) Negative Normal NEGATIVE [facility] Comment on above: Performed By: #### M DAVID #### [facility] [address] [place] [address] Dr. Ibis Jimenez pH (U) 8.0 [pH] Normal 5-9 [facility] Comment on above: Performed By: #### M DAVID #### [facility] [address] [place] [address] Dr. Ibis Jimenez SPEC GRAVITY 1.010 Normal 1.005-<=1.02 5 [facility] Comment on above: Performed By: #### M DAVID #### [facility] [address] [place] [address] Dr. Ibis Jimenez UA PROTEIN Negative Normal NEGATIVE/ TRACE [facility] Comment on above: Performed By: #### M DAVID #### [facility] [address] [place] [address] Dr. Ibis Jimenez UR MICRO IND NOT INDICATED Normal [facility] Comment on above: Performed By: #### M DAVID #### [facility] [address] [place] [address] [address] Ibis Jimenez Urobilinogen Qn (U) 0.2 {Dinorah'U}/dL Normal 0.2 - 1. 0 [facility] Comment on above: Performed By: #### M DAVID #### [facility] [address] [place] [address] Dr. Ibis Jimenez ER URINE PROFILEon 2 Bilirubin Ql (U) Negative Normal NEGATIVE [facility] Comment on above: Performed By: #### C VDTBH #### [facility] [address] [place] [address] Dr. Ibis Jimenez Clarity (U) CLEAR Normal CLEAR [facility] Comment on above: Performed By: #### C VDTBH #### [facility] [address] [place] [address] Dr. Ibis Jimenez Color (U) YELLOW Normal YELLOW [facility] Comment on above: Performed By: #### C VDTBH #### [facility] [address] [place] [address] Dr. Ibis Jimenez ERUAHD A micrscopic examination will be performed if indicated. Normal [facility] Comment on above: Performed By: #### C VDTBH #### [facility] [address] [place] [address] Dr. Ibis Jimenez Glucose Ql (U) Negative Normal NEGATIVE [facility] Comment on above: Performed By: #### C VDTBH #### [facility] [address] [place] [address] Dr. Ibis Jimenez Hemoglobin Ql (U) Negative Normal NEGATIVE [facility] Comment on above: Performed By: #### C VDTBH #### [facility] [address] [place] [address] Dr. Ibis Jimenez Ketones Ql (U) Negative Normal NEGATIVE [facility] Comment on above: Performed By: #### C VDTBH #### [facility] [address] [place] [address] Dr. Ibis Jimenez LEUKOCYTES Negative Normal NEGATIVE [facility] Comment on above: Performed By: #### C VDTBH #### [facility] [address] [place] [address] Dr. Ibis Jimenez Nitrite Ql (U) Negative Normal NEGATIVE [facility] Comment on above: Performed By: #### C VDTBH #### [facility] [address] [place] [address] Dr. Ibis Jimenez pH (U) 6.0 [pH] Normal 5-9 [facility] Comment on above: Performed By: #### C VDTBH #### [facility] [address] [place] [address] Dr. Ibis Jimenez SPEC GRAVITY 1.025 Normal 1.005-<=1.02 5 [facility] Comment on above: Performed By: #### C VDTBH #### [facility] [address] [place] [address] Dr. Ibis Jimenez UA PROTEIN Negative Normal NEGATIVE/ TRACE [facility] Comment on above: Performed By: #### C VDTBH #### [facility] [address] [place] [address] Dr. Ibis iJmenez UR MICRO IND NOT INDICATED Normal [facility] Comment on above: Performed By: #### C VDTBH #### [facility] [address] [place] [address] Dr. Ibis Jimenez Urobilinogen Qn (U) 0.2 {Dinorah'U}/dL Normal 0.2 - 1. 0 [facility] Comment on above: Performed By: #### C VDTBH #### [facility] [address] [place] [address] Dr. Ibis Jimenez CBC AUTO DIFFon 10-03-2021 BASO # 0.0 103/ul Normal 0.0-0.1 [facility] Comment on above: Performed By: #### B MP #### [facility] [address] [place] [address] Dr. Ibis Jimenez Basophils/100 WBC (Bld) 0.3 % Normal 0.2-2.0 [facility] Comment on above: Performed By: #### B MP #### [facility] [address] [address] [address] Ibis Jimenez EO # 0.3 103/ul Normal 0.0-0.7 [facility] Comment on above: Performed By: #### B MP #### [facility] [address] [place] [address] Dr. Ibis Jimenez Eosinophils/100 WBC (Bld) 4.1 % Normal 0.9-7.0 [facility] Comment on above: Performed By: #### B MP #### [facility] [address] [place] [address] Dr. Ibis Jimenez Erythrocyte distribution width (RBC) [Ratio] 13.2 % Normal 11.0-15.0 [facility] Comment on above: Performed By: #### B MP #### [facility] [address] [place] [address] Dr. Ibis Jimenez Hematocrit (Bld) [Volume fraction] 35.7 % Critically low 36.0-48.0 [facility] Comment on above: Performed By: #### B MP #### [facility] [address] [place] [address] Dr. Ibis Jimenez Hemoglobin (Bld) [Mass/Vol] 11.6 g/dL Critically low 12.0-16.0 [facility] Comment on above: Performed By: #### B MP #### [facility] [address] [place] [address] Dr. Ibis Jimenez IG # 0.02 10e3/ul Normal 0.00-0.03 [facility] Comment on above: Performed By: #### B MP #### [facility] [address] [place] [address] Dr. Ibis Jimenez IG % 0.3 % Normal 0.0-0.5 [facility] Comment on above: Performed By: #### B MP #### [facility] [address] [place] [address] Dr. Ibis Jimenez LYMPH # 1.5 103/ul Normal 1.2-3.8 [facility] Comment on above: Performed By: #### B MP #### [facility] [address] [address] [address] Ibis Jimenez Lymphocytes/100 WBC (Bld) 24.3 % Normal 20.5-60.0 [facility] Comment on above: Performed By: #### B MP #### [facility] [address] [place] [address] Dr. Ibis Jimenez MANUAL DIFF REQ NO Normal [facility] Comment on above: Performed By: #### B MP #### [facility] [address] [place] [address] Dr. Ibis Jimenez MCH (RBC) [Entitic mass] 28.9 pg Normal 26.7-34.0 [facility] Comment on above: Performed By: #### B MP #### [facility] [address] [place] [address] Dr. Ibis Jimenez MCHC (RBC) [Mass/Vol] 32.5 g/dL Normal 29.9-35.2 [facility] Comment on above: Performed By: #### B MP #### [facility] [address] [place] [address] Dr. Ibis Jimenez MCV (RBC) [Entitic vol] 89.0 fL Normal 81.0-99.0 [facility] Comment on above: Performed By: #### B MP #### [facility] [address] [place] [address] Dr. Ibis Jimenez MONO # 0.5 103/ul Normal 0.3-0.8 [facility] Comment on above: Performed By: #### B MP #### [facility] [address] [place] [address] Dr. Ibis Jimenez Monocytes/100 WBC (Bld) 7.3 % Normal 1.7-12.0 [facility] Comment on above: Performed By: #### B MP #### [facility] [address] [place] [address] Dr. Ibis Jimenez NEUT # 4.0 103/ul Normal 1.4-6.5 [facility] Comment on above: Performed By: #### B MP #### [facility] [address] [address] [address] Ibis Jimenez Neutrophils/100 WBC (Bld) 63.7 % Normal 43.0-75.0 [facility] Comment on above: Performed By: #### B MP #### [facility] [address] [address] [address] Ibis Jimenez Platelet mean volume (Bld) [Entitic vol] 9.7 fL Normal 9.5-13.5 [facility] Comment on above: Performed By: #### B MP #### [facility] [address] [place] [address] Dr. Ibis Jimenez PLT 237 103/ul Normal 150-450 [facility] Comment on above: Performed By: #### B MP #### [facility] [address] [place] [address] Dr. Ibis Jimenez RBC 4.01 106/ul Critically low 4.20-5.40 [facility] Comment on above: Performed By: #### B MP #### [facility] [address] [place] [address] Dr. Ibis Jimenez WBC 6.3 103/ul Normal 4.0-11.0 [facility] Comment on above: Performed By: #### B MP #### [facility] [address] [place] [address] Dr. Ibis Jimenez LACTATE/LACTIC ACIDon 2021 Lactate [Moles/Vol] 1.2 mmol/L Normal 0.4-1.9 [facility] Comment on above: Performed By: #### A MM #### [facility] Laboratory [address] [place] [address] Dr. Ibis Jimenez BUNon 10-02-2021 Urea nitrogen [Mass/Vol] 7.0 mg/dL Normal 7.0-18.0 [facility] Comment on above: Performed By: #### C VDTB #### [facility] [address] [place] [address] Dr. Ibis Jimenez CBC AUTO DIFFon 10-02-2021 BASO # 0.0 103/ul Normal 0.0-0.1 [facility] Comment on above: Performed By: #### A MM #### [facility] [address] [address] [address] Ibis Jimenez Basophils/100 WBC (Bld) 0.2 % Normal 0.2-2.0 [facility] Comment on above: Performed By: #### A MM #### [facility] [address] [address] [address] Ibis Jimenez EO # 0.0 103/ul Normal 0.0-0.7 [facility] Comment on above: Performed By: #### A MM #### [facility] [address] [address] [address] Ibis Jimenez Eosinophils/100 WBC (Bld) 0.3 % Critically low 0.9-7.0 [facility] Comment on above: Performed By: #### A MM #### [facility] [address] [place] [address] Dr. Ibis Jimenez Erythrocyte distribution width (RBC) [Ratio] 12.7 % Normal 11.0-15.0 [facility] Comment on above: Performed By: #### A MM #### [facility] [address] [place] [address] Dr. Ibis Jimenez Hematocrit (Bld) [Volume fraction] 43.4 % Normal 36.0-48.0 [facility] Comment on above: Performed By: #### A MM #### [facility] [address] [place] [address] Dr. Ibis Jimenez Hemoglobin (Bld) [Mass/Vol] 14.6 g/dL Normal 12.0-16.0 [facility] Comment on above: Performed By: #### A MM #### [facility] [address] [place] [address] Dr. Ibis Jimenez IG # 0.03 10e3/ul Normal 0.00-0.03 [facility] Comment on above: Performed By: #### A MM #### [facility] [address] [place] [address] Dr. Ibis Jimenez IG % 0.3 % Normal 0.0-0.5 [facility] Comment on above: Performed By: #### A MM #### [facility] [address] [place] [address] Dr. Ibis Jimenez LYMPH # 1.2 103/ul Normal 1.2-3.8 [facility] Comment on above: Performed By: #### A MM #### [facility] [address] [place] [address] Dr. Ibis Jimenez Lymphocytes/100 WBC (Bld) 11.6 % Critically low 20.5-60.0 [facility] Comment on above: Performed By: #### A MM #### [facility] [address] [place] [address] Dr. Ibis Jimenez MANUAL DIFF REQ NO Normal [facility] Comment on above: Performed By: #### A MM #### [facility] [address] [place] [address] Dr. Ibis Jimenez MCH (RBC) [Entitic mass] 28.5 pg Normal 26.7-34.0 [facility] Comment on above: Performed By: #### A MM #### [facility] [address] [place] [address] Dr. Ibis Jimenez MCHC (RBC) [Mass/Vol] 33.6 g/dL Normal 29.9-35.2 [facility] Comment on above: Performed By: #### A MM #### [facility] [address] [place] [address] Dr. Ibis Jimenez MCV (RBC) [Entitic vol] 84.6 fL Normal 81.0-99.0 [facility] Comment on above: Performed By: #### A MM #### [facility] [address] [place] [address] Dr. Ibis Jimenez MONO # 0.6 103/ul Normal 0.3-0.8 [facility] Comment on above: Performed By: #### A MM #### [facility] [address] [place] [address] Dr. Ibis Jimenez Monocytes/100 WBC (Bld) 5.9 % Normal 1.7-12.0 [facility] Comment on above: Performed By: #### A MM #### [facility] [address] [address] [address] Ibis Jimenez NEUT # 8.2 103/ul Critically high 1.4-6.5 [facility] Comment on above: Performed By: #### A MM #### [facility] [address] [address] [address] Ibis Jimenez Neutrophils/100 WBC (Bld) 81.7 % Critically high 43.0-75.0 [facility] Comment on above: Performed By: #### A MM #### [facility] [address] [place] [address] Dr. Ibis Jimenez Platelet mean volume (Bld) [Entitic vol] 9.8 fL Normal 9.5-13.5 [facility] Comment on above: Performed By: #### A MM #### [facility] [address] [place] [address] Dr. Ibis Jimenez PLT 264 103/ul Normal 150-450 [facility] Comment on above: Performed By: #### A MM #### [facility] [address] [place] [address] Dr. Ibis Jimenez RBC 5.13 106/ul Normal 4.20-5.40 [facility] Comment on above: Performed By: #### A MM #### [facility] [address] [place] [address] Dr. Ibis Jimenez WBC 10.1 103/ul Normal 4.0-11.0 [facility] Comment on above: Performed By: #### A MM #### [facility] [address] [place] [address] Dr. Ibis Jimneez CREATININEon 10-02-2021 Creatinine [Mass/Vol] 0.69 mg/dL Normal 0.55-1.02 [facility] Comment on above: Performed By: #### C VDTBH #### [facility] [address] [place] [address] Dr. Ibis Jimenez EGFR-AF ALGERIAN >60 Normal >=60 [facility] Comment on above: Performed By: #### C VDTBH #### [facility] [address] [place] [address] Dr. Ibis Jimenez EGFR-NON AF ALGERIAN >60 Normal >=60 [facility] Comment on above: Performed By: #### C VDTB #### [facility] [address] [place] [address] Dr. Ibis Jimenez CBC AUTO DIFFon 10-01-2021 BASO # 0.0 103/ul Normal 0.0-0.1 [facility] Comment on above: Performed By: #### A MM #### [facility] [address] [place] [address] Dr. Ibis Jimenez Basophils/100 WBC (Bld) 0.3 % Normal 0.2-2.0 [facility] Comment on above: Performed By: #### A MM #### [facility] [address] [place] [address] Dr. Ibis Jimenez EO # 0.1 103/ul Normal 0.0-0.7 [facility] Comment on above: Performed By: #### A MM #### [facility] [address] [place] [address] Dr. Ibis Jimenez Eosinophils/100 WBC (Bld) 1.9 % Normal 0.9-7.0 [facility] Comment on above: Performed By: #### A MM #### [facility] [address] [place] [address] Dr. Ibis Jimenez Erythrocyte distribution width (RBC) [Ratio] 12.7 % Normal 11.0-15.0 [facility] Comment on above: Performed By: #### A MM #### [facility] [address] [place] [address] Dr. Ibis Jimenez Hematocrit (Bld) [Volume fraction] 38.1 % Normal 36.0-48.0 [facility] Comment on above: Performed By: #### A MM #### [facility] [address] [place] [address] Dr. Ibis Jimenez Hemoglobin (Bld) [Mass/Vol] 12.7 g/dL Normal 12.0-16.0 [facility] Comment on above: Performed By: #### A MM #### [facility] [address] [place] [address] Dr. Ibis Jimenez IG # 0.02 10e3/ul Normal 0.00-0.03 [facility] Comment on above: Performed By: #### A MM #### [facility] [address] [place] [address] Dr. Ibis Jimenez IG % 0.3 % Normal 0.0-0.5 [facility] Comment on above: Performed By: #### A MM #### [facility] [address] [place] [address] Dr. Ibis Jimenez LYMPH # 1.9 103/ul Normal 1.2-3.8 [facility] Comment on above: Performed By: #### A MM #### [facility] [address] [place] [address] Dr. Ibis Jimenez Lymphocytes/100 WBC (Bld) 30.5 % Normal 20.5-60.0 [facility] Comment on above: Performed By: #### A MM #### [facility] [address] [place] [address] Dr. Ibis Jimenez MANUAL DIFF REQ NO Normal [facility] Comment on above: Performed By: #### A MM #### [facility] [address] [place] [address] Dr. Ibis Jimenez MCH (RBC) [Entitic mass] 28.3 pg Normal 26.7-34.0 [facility] Comment on above: Performed By: #### A MM #### [facility] [address] [place] [address] Dr. Ibis Jimenez MCHC (RBC) [Mass/Vol] 33.3 g/dL Normal 29.9-35.2 [facility] Comment on above: Performed By: #### A MM #### [facility] [address] [place] [address] Dr. Ibis Jimenez MCV (RBC) [Entitic vol] 85.0 fL Normal 81.0-99.0 [facility] Comment on above: Performed By: #### A MM #### [facility] [address] [place] [address] Dr. Ibis Jimenez MONO # 0.3 103/ul Normal 0.3-0.8 [facility] Comment on above: Performed By: #### A MM #### [facility] [address] [place] [address] Dr. Ibis Jimenez Monocytes/100 WBC (Bld) 5.2 % Normal 1.7-12.0 [facility] Comment on above: Performed By: #### A MM #### [facility] [address] [place] [address] Dr. Ibis Jimenez NEUT # 3.9 103/ul Normal 1.4-6.5 [facility] Comment on above: Performed By: #### A MM #### [facility] [address] [place] [address] Dr. Ibis Jimenez Neutrophils/100 WBC (Bld) 61.8 % Normal 43.0-75.0 [facility] Comment on above: Performed By: #### A MM #### [facility] [address] [place] [address] Dr. Ibis Jimenez Platelet mean volume (Bld) [Entitic vol] 9.7 fL Normal 9.5-13.5 [facility] Comment on above: Performed By: #### A MM #### [facility] [address] [place] [address] Dr. Ibis Jimenez PLT 255 103/ul Normal 150-450 [facility] Comment on above: Performed By: #### A MM #### [facility] [address] [place] [address] Dr. Ibis Jimenez RBC 4.48 106/ul Normal 4.20-5.40 [facility] Comment on above: Performed By: #### A MM #### [facility] [address] [place] [address] Dr. Ibis Jimenez WBC 6.3 103/ul Normal 4.0-11.0 [facility] Comment on above: Performed By: #### A MM #### [facility] [address] [place] [address] Dr. Ibis Jimenez PREG HCG QUALon 10-01-2021 , QUAL Negative Normal NEGATIVE [facility] Comment on above: Performed By: #### M DAVID #### [facility] [address] [place], [place] [address] Dr. Ibis Jimenez Covid-19 PCR (CVDTBH)on 09-20 SARS-CoV-2 (COVID-19) RNA SAURABH+probe Ql (Unsp spec) Not detected Normal NOT DETECTED [facility] Comment on above: Result Comment: This test is not yet approved or cleared by the [place] FDA. When there are no FDA-approved or cleared tests available, and other criteria are met, FDA can make tests available under an emergency access mechanism called an Emergency Use Authorization (EUA). The EUA for this test is supported by the [place] of Health and Human Service's (HHS's) declaration [...] SARS-CoV-2. Performed By: #### B MP #### [facility] [address] [place], [place] [address] Dr. Ibis Jimenez TYPE AND SCREENon 09-29-2021 TYPE AND SCREEN Negative Normal [facility] Comment on above: Performed By: #### B MP #### [facility] [address] [place], [place] [address] Dr. Ibis Jimenez Covid-19 PCR (CVDTBH)on SARS-CoV-2 (COVID-19) RNA SAURABH+probe Ql (Unsp spec) Not detected Normal NOT DETECTED [facility] Comment on above: Result Comment: This test is not yet approved or cleared by the [place] FDA. When there are no FDA-approved or cleared tests available, and other criteria are met, FDA can make tests available under an emergency access mechanism called an Emergency Use Authorization (EUA). The EUA for this test is supported by the [place] of Health and Human Service's (HHS's) declaration [...] SARS-CoV-2. Performed By: #### C VDTBH #### [facility] [address] [place] [address] Dr. Ibis Jimenez TYPE AND SCREENon 09-21-2021 TYPE AND SCREEN Negative Normal [facility] Comment on above: Performed By: #### B MP #### [facility] [address] [place] [address] Dr. Ibis Jimenez CHLAMYDIA/GONOCOCCUS SAURABH (SW AB/URINE/PAPon 08-17-2021 Chlamydia trachomatis, SAURABH Negative Normal Negative [facility] Comment on above: Performed By: #### A CET, SALYC #### [facility] [address] [place] [address] Dr. Ibis Jimenez Neisseria gonorrhoeae, SAURABH Negative Normal Negative [facility] Comment on above: Performed By: #### A CET, SALYC #### [facility] [address] [place] [address] Dr. Ibis Jimenez CBC AUTO DIFFon 08-14-2021 BASO # 0.0 103/ul Normal 0.0-0.1 [facility] Comment on above: Performed By: #### C VDTBH #### [facility] [address] [place] [address] Dr. Ibis Jimenez Basophils/100 WBC (Bld) 0.3 % Normal 0.2-2.0 [facility] Comment on above: Performed By: #### C VDTBH #### [facility] [address] [place] [address] Dr. Ibis Jimenez EO # 0.2 103/ul Normal 0.0-0.7 [facility] Comment on above: Performed By: #### C VDTBH #### [facility] [address] [place] [address] Dr. Ibis Jimenez Eosinophils/100 WBC (Bld) 2.5 % Normal 0.9-7.0 [facility] Comment on above: Performed By: #### C VDTBH #### [facility] [address] [place] [address] Dr. Ibis Jimenez Erythrocyte distribution width (RBC) [Ratio] 13.0 % Normal 11.0-15.0 [facility] Comment on above: Performed By: #### C VDTBH #### [facility] [address] [place] [address] Dr. Ibis Jimenez Hematocrit (Bld) [Volume fraction] 38.1 % Normal 36.0-48.0 [facility] Comment on above: Performed By: #### C VDTBH #### [facility] [address] [place] [address] Dr. Ibis Jimenez Hemoglobin (Bld) [Mass/Vol] 12.8 g/dL Normal 12.0-16.0 [facility] Comment on above: Performed By: #### C VDTBH #### [facility] [address] [place] [address] Dr. Ibis Jimenez IG # 0.02 10e3/ul Normal 0.00-0.03 [facility] Comment on above: Performed By: #### C VDTBH #### [facility] [address] [place] [address] Dr. Ibis Jimenez IG % 0.3 % Normal 0.0-0.5 [facility] Comment on above: Performed By: #### C VDTBH #### [facility] [address] [place] [address] Dr. Ibis Jimenez LYMPH # 1.5 103/ul Normal 1.2-3.8 [facility] Comment on above: Performed By: #### C VDTBH #### [facility] [address] [place] [address] Dr. Ibis Jimenez Lymphocytes/100 WBC (Bld) 22.5 % Normal 20.5-60.0 [facility] Comment on above: Performed By: #### C VDTBH #### [facility] [address] [place] [address] Dr. Ibis Jimenez MANUAL DIFF REQ NO Normal [facility] Comment on above: Performed By: #### C VDTBH #### [facility] [address] [place] [address] Dr. Ibis Jimenez MCH (RBC) [Entitic mass] 28.6 pg Normal 26.7-34.0 [facility] Comment on above: Performed By: #### C VDTBH #### [facility] [address] [place] [address] Dr. Ibis Jimenez MCHC (RBC) [Mass/Vol] 33.6 g/dL Normal 29.9-35.2 [facility] Comment on above: Performed By: #### C VDTBH #### [facility] [address] [place] [address] Dr. Ibis Jimenez MCV (RBC) [Entitic vol] 85.0 fL Normal 81.0-99.0 [facility] Comment on above: Performed By: #### C VDTBH #### [facility] [address] [place] [address] Dr. Ibis Jimenez MONO # 0.4 103/ul Normal 0.3-0.8 [facility] Comment on above: Performed By: #### C VDTBH #### [facility] [address] [place] [address] Dr. Ibis Jimenez Monocytes/100 WBC (Bld) 6.3 % Normal 1.7-12.0 [facility] Comment on above: Performed By: #### C VDTBH #### [facility] [address] [place] [address] Dr. Ibis Jimenez NEUT # 4.6 103/ul Normal 1.4-6.5 [facility] Comment on above: Performed By: #### C VDTBH #### [facility] [address] [address] [address] Ibis Jimenez Neutrophils/100 WBC (Bld) 68.1 % Normal 43.0-75.0 [facility] Comment on above: Performed By: #### C VDTBH #### [facility] [address] [address] [address] Ibis Jimenez Platelet mean volume (Bld) [Entitic vol] 9.8 fL Normal 9.5-13.5 [facility] Comment on above: Performed By: #### C VDTBH #### [facility] [address] [place] [address] Dr. Ibis Jimenez PLT 243 103/ul Normal 150-450 [facility] Comment on above: Performed By: #### C VDTBH #### [facility] [address] [place] [address] Dr. Ibis Jimenez RBC 4.48 106/ul Normal 4.20-5.40 [facility] Comment on above: Performed By: #### C VDTBH #### [facility] [address] [place] [address] Dr. Ibis Jimenez WBC 6.7 103/ul Normal 4.0-11.0 [facility] Comment on above: Performed By: #### C VDTBH #### [facility] [address] [place] [address] ABD/PELVIS WO CONon [...] NELI COTTO Date: 2021-08-14 18:00 Normal [facility] ER URINE PROFILEon 2 Bilirubin Ql (U) SMALL Abnormal NEGATIVE [facility] Comment on above: Performed By: #### B MP #### [facility] [address] [place] [address] Dr. Ibis Jimenez Clarity (U) CLEAR Normal CLEAR [facility] Comment on above: Performed By: #### B MP #### [facility] [address] [place] [address] Dr. Ibis Jimenez Color (U) YELLOW Normal YELLOW [facility] Comment on above: Performed By: #### B MP #### [facility] [address] [place] [address] Dr. Ibis Jimenez ERUKishan A micrscopic examination will be performed if indicated. Normal [facility] Comment on above: Performed By: #### B MP #### [facility] [address] [place] [address] Dr. Ibis Jimenez Glucose Ql (U) Negative Normal NEGATIVE [facility] Comment on above: Performed By: #### B MP #### [facility] [address] [place] [address] Dr. Ibis Jimenez Hemoglobin Ql (U) SMALL Abnormal NEGATIVE [facility] Comment on above: Performed By: #### B MP #### [facility] [address] [place] [address] Dr. Ibis Jimenez Ketones Ql (U) TRACE Abnormal NEGATIVE [facility] Comment on above: Performed By: #### B MP #### [facility] [address] [place] [address] Dr. Ibis Jimenez LEUKOCYTES Negative Normal NEGATIVE [facility] Comment on above: Performed By: #### B MP #### [facility] [address] [place] [address] Dr. Ibis Jimenez Nitrite Ql (U) Negative Normal NEGATIVE [facility] Comment on above: Performed By: #### B MP #### [facility] [address] [place] [address] Dr. Ibis Jimenez pH (U) 5.5 [pH] Normal 5-9 [facility] Comment on above: Performed By: #### B MP #### [facility] [address] [place] [address] Dr. Ibis Jimenez SPEC GRAVITY >=1.030 Abnormal 1.005-<=1.02 5 [facility] Comment on above: Performed By: #### B MP #### [facility] [address] [place] [address] Dr. Ibis Jimenez UA PROTEIN TRACE Normal NEGATIVE/ TRACE [facility] Comment on above: Performed By: #### B MP #### [facility] [address] [place] [address] Dr. Ibis Jimenez UR MICRO IND INDICATED Normal [facility] Comment on above: Performed By: #### B MP #### [facility] [address] [place] [address] Dr. Ibis Jimenez Urobilinogen Qn (U) 1.0 {Dinorha'U}/dL Normal 0.2 - 1. 0 [facility] Comment on above: Performed By: #### B MP #### [facility] [address] [place] [address] Dr. Ibis Jimenez URon 08-14-2021 , QUAL Negative Normal NEGATIVE [facility] Comment on above: Performed By: #### B MP #### [facility] [address] [place] [address] Dr. Ibis Jimenez PROF CHEM 8 (BAS METB)on Anion gap [Moles/Vol] 15.3 mmol/L Normal [facility] Comment on above: Performed By: #### B MP #### [facility] [address] [place] [address] Dr. Ibis Jimenez Calcium [Mass/Vol] 8.4 mg/dL Critically low 8.5-10.1 [facility] Comment on above: Performed By: #### B MP #### [facility] [address] [place] [address] Dr. Ibis Jimenez Chloride [Moles/Vol] 106 mmol/L Normal 98-107 [facility] Comment on above: Performed By: #### B MP #### [facility] [address] [place] [address] Dr. Ibis Jimenez CO2 [Moles/Vol] 22.3 mmol/L Normal 21.0-32.0 [facility] Comment on above: Performed By: #### B MP #### [facility] [address] [place] [address] Dr. Ibis Jimenez Creatinine [Mass/Vol] 0.75 mg/dL Normal 0.55-1.02 [facility] Comment on above: Performed By: #### B MP #### [facility] [facility] [address] [place] [address] Dr. Ibis Jimenez EGFR-AF ALGERIAN >60 Normal >=60 [facility] Comment on above: Performed By: #### B MP #### [facility] [address] [place] [address] Dr. Ibis Jimenez EGFR-NON AF ALGERIAN >60 Normal >=60 [facility] Comment on above: Performed By: #### B MP #### [facility] [address] [place] [address] Dr. Ibis Jimenez Glucose [Mass/Vol] 107 mg/dL Critically high 74-106 [facility] Comment on above: Performed By: #### B MP #### [facility] [address] [place] [address] Dr. Ibis Jimenez Potassium [Moles/Vol] 3.6 mmol/L Normal 3.5-5.1 [facility] Comment on above: Performed By: #### B MP #### [facility] [address] [place] [address] Dr. Ibis Jimenez Sodium [Moles/Vol] 140 mmol/L Normal 136-145 [facility] Comment on above: Performed By: #### B MP #### [facility] [address] [place] [address] Dr. Ibis Jimenez Urea nitrogen [Mass/Vol] 13.0 mg/dL Normal 7.0-18.0 [facility] Comment on above: Performed By: #### B MP #### [facility] [address] [place] [address] Dr. Ibis Jimenez Urea nitrogen/Creatinine [Mass ratio] 17.3 mg/mg Normal [facility] Comment on above: Performed By: #### B MP #### [facility] [address] [place] [address] Dr. Ibis Jimenez URINE MICROSCOPIC ONLYon BACTERIA TRACE Abnormal NONE SEEN [facility] Comment on above: Performed By: #### B MP #### [facility] [address] [place] [address] Dr. Ibis Jimenez Bacteria identified Cx Nom (U) NOT INDICATED Normal [facility] Comment on above: Performed By: #### B MP #### [facility] [address] [place] [address] Dr. Ibis Jimenez CAST NONE SEEN Normal NONE SEEN [facility] Comment on above: Performed By: #### B MP #### [facility] [address] [place] [address] Dr. Ibis Jimenez Crystals LM Nom (Urine sed) NONE SEEN Normal NONE SEEN [facility] Comment on above: Performed By: #### B MP #### [facility] [address] [place] [address] Dr. Ibis Jimenez Epithelial cells LM Ql (Urine sed) MANY Abnormal NONE SEEN /RARE [facility] Comment on above: Performed By: #### B MP #### [facility] [address] [place] [address] Dr. Ibis Jimenez MUCOUS SMALL Abnormal NONE SEEN [facility] Comment on above: Performed By: #### B MP #### [facility] [address] [address] [address] Ibis Jimenez RBC 2-5 Abnormal 0-2 [facility] Comment on above: Performed By: #### B MP #### [facility] [id number] Ibis Jimenez WBC 2-5 Abnormal NONE SEEN [facility] Comment on above: Performed By: #### B MP #### [facility] [address] [address] [address] Ibis Jimenez CBC Auto DifferentialOrdered By: Keven Ching on 12-24-2020 Absolute Eos # 0.44 [employer] [facility] Work Phone: Absolute Immature Granulocyte 0.05 [employer] Work Phone: Absolute Lymph # 2.48 [employer] [facility] Work Phone: Absolute [place] # 0.55 [facility] Work Phone: Basophils (Bld) [#/Vol] 10*3/uL [employer] Work Phone: Basophils/100 WBC (Bld) 0 % 0 - 2 % [employer] Phone: Differential Type NOT REPORTED [employer] Phone: Eosinophils/100 WBC (Bld) 5 % High 1 - 4 % [employer] Work Phone: Hematocrit (Bld) [Volume fraction] 37.4 % 36.3 - 47.1 % [employer] Work Phone: Hemoglobin.gastrointes tinal spec 1 Ql (Stl) 12.3 g/dL 11.9 - 15.1 g/dL [employer] Work Phone: Immature granulocytes/100 WBC (Bld) 1 % High 0 [employer] Work Phone: Interpretation and review of laboratory results Abnormal [employer] Phone: Lymphocytes/100 WBC (Bld) 30 % 24 - 43 % [employer] Phone: MCH (RBC) [Entitic mass] 28.5 pg 25.2 - 33.5 pg [employer] Phone: MCHC (RBC) [Mass/Vol] 32.9 g/dL 28.4 - 34.8 g/dL [employer] Phone: MCV (RBC) [Entitic vol] 86.8 fL 82.6 - 102.9 fL [employer] Phone: Monocytes/100 WBC (Bld) 7 % 3 - 12 % [employer] Phone: NRBC Automated 0.0 0.0 per 100 WBC [employer] Phone: Platelet distribution width (Bld) [Ratio] 12.7 % 11.8 - 14.4 % [employer] Phone: Platelet Estimate NOT REPORTED [employer] Phone: Platelet mean volume (Bld) [Entitic vol] 9.4 fL 8.1 - 13.5 fL [employer] Phone: Platelets (Bld) [#/Vol] 252 10*3/uL [employer] Phone: RBC (Bld) [#/Vol] 4.31 10*6/uL 3.95 - 5.1 1 m/uL [employer] Work Phone: RBC (Bld) [#/Vol] NOT REPORTED [employer] Phone: Segmented neutrophils/100 WBC (Bld) 57 % 36 - 65 % [employer] Phone: Segs Absolute 4.78 [employer] Work Phone: WBC (Bld) [#/Vol] 8.3 10*3/uL [employer] Phone: WBC (Bld) [#/Vol] NOT REPORTED [facility] Work Phone: [facility] Work Phone: CBC with Diffon 12-24-2020 Abs. Basophil <0.03 Normal 0.00-0.20 [facility] Comment on above: Performed By: #### C MPX, CDP #### [address] [place] [address] [employer]: Souleymane Pineda MD Abs.Imm.Granulocyte 0.05 k/uL Normal 0.00-0.30 [facility] Comment on above: Performed By: #### C MPX, CDP #### [address] [place] [address] [employer]: Souleymane Pineda MD Abs.Neutrophil (Seg) 4.78 k/uL Normal 1.50-8.10 [facility] Comment on above: Performed By: #### C MPX, CDP #### [address] [place] [address] [employer]: Souleymane Pineda MD Basophils/100 WBC (Bld) 0 % Normal 0-2 [facility] Comment on above: Performed By: #### C MPX, CDP #### [address] [place] [address] [employer]: Souleymane Pineda MD Eosinophils (Bld) [#/Vol] 0.44 10*3/uL Normal 0.00-0.44 [facility] Comment on above: Performed By: #### C MPX, CDP #### [address] [place], [place] [id number] [employer]: Souleymane Pineda MD Eosinophils/100 WBC (Bld) 5 % High 1-4 [facility] Comment on above: Performed By: #### C MPX, CDP #### [facility] [address] [place], [place] [id number] [employer]: Souleymane Pineda MD Erythrocyte distribution width (RBC) [Ratio] 12.7 % Normal 11.8-14.4 [facility] Comment on above: Performed By: #### C MPX, CDP #### [facility] [address] [place], [place] [id number] [employer]: Souleymane Pineda MD Hematocrit (Bld) [Volume fraction] 37.4 % Normal 36.3-47.1 [facility] Comment on above: Performed By: #### C MPX, CDP #### [address] [place], [place] [id number] [employer]: Souleymane Pineda MD Hemoglobin (Bld) [Mass/Vol] 12.3 g/dL Normal 11.9-15.1 [facility] Comment on above: Performed By: #### C MPX, CDP #### [address] [place], [place] [address]683 [employer]: Souleymane Pineda MD Immature granulocytes/100 WBC (Bld) 1 % High 0 [facility] Comment on above: Performed By: #### C MPX, CDP #### [address] [place], [place] [id number] [employer]: Souleymane Pineda MD Lymphocytes (Bld) [#/Vol] 2.48 10*3/uL Normal 1.10-3.70 [facility] Comment on above: Performed By: #### C MPX, CDP #### [facility] [address] [place], [place] [id number] [employer]: Souleymane Pineda MD Lymphocytes/100 WBC (Bld) 30 % Normal 24-43 [facility] Comment on above: Performed By: #### C MPX, CDP #### [facility] [address] [place], [place] [phone] [employer]: Souleymane Pineda MD MCH (RBC) [Entitic mass] 28.5 pg Normal 25.2-33.5 [facility] Comment on above: Performed By: #### C MPX, CDP #### [facility] [address] [place] [address] Dr[place], [place] [id number] [employer]: oSuleymane Pineda MD MCHC (RBC) [Mass/Vol] 32.9 g/dL Normal 28.4-34.8 [facility] Comment on above: Performed By: #### C MPX, CDP #### [address] [place] [address] [employer]: Souleymane Pineda MD MCV (RBC) [Entitic vol] 86.8 fL Normal 82.6-102.9 [facility] Comment on above: Performed By: #### C MPX, CDP #### [address] [place], [place] [id number] [employer]: Souleymane Pineda MD Monocytes (Bld) [#/Vol] 0.55 10*3/uL Normal 0.10-1.20 [facility] Comment on above: Performed By: #### C MPX, CDP #### [address] [place], [place] [phone] [employer]: Souleymane Pineda MD Monocytes/100 WBC (Bld) 7 % Normal 3-12 [facility] Comment on above: Performed By: #### C MPX, CDP #### [facility] [address] [place], [place] [phone] [employer]: Souleymane Pineda MD Neutrophil (Seg) 57 % Normal 36-65 [facility] Comment on above: Performed By: #### C MPX, CDP #### [facility] [address] [place], [place] [phone] [employer]: Souleymane Pineda MD NRBC Automated 0.0 per 100 WBC Normal 0.0 [facility] Comment on above: Performed By: #### C MPX, CDP #### [facility] [address] [place], [place] [phone] [employer]: Souleymane Pineda MD Platelet mean volume (Bld) [Entitic vol] 9.4 fL Normal 8.1-13.5 [facility] Comment on above: Performed By: #### C MPX, CDP #### [facility] [address] [place], [place] [phone] [employer]: Souleymane Pineda MD Platelets (Bld) [#/Vol] 252 10*3/uL Normal 138-453 [facility] Comment on above: Performed By: #### C MPX, CDP #### [address] [place], [place] [id number] [employer]: Souleymane Pineda MD RBC (Bld) [#/Vol] 4.31 10*6/uL Normal 3.95-5.11 [facility] Comment on above: Performed By: #### C MPX, CDP #### [address] [place], [place] [phone] [employer]aker: Souleymane Pineda MD WBC (Bld) [#/Vol] 8.3 10*3/uL Normal 3.5-11.3 [facility] Comment on above: Performed By: #### C MPX, CDP #### [facility] [address] [place] [address] Dr[address] [place], [place] [phone] [employer]aker: Souleymane Pineda MD Auto Diff Performed NOT REPORTED Normal [facility] Comment on above: Performed By: #### C MPX, CDP #### [facility] [address] [place] [address] [employer]aker: Souleymane Pineda MD Platelet Comment NOT REPORTED Normal [facility] Comment on above: Performed By: #### C MPX, CDP #### [facility] [address] [place] [address] [employer]aker: Souleymane Pineda MD RBC morphology finding Nom (Bld) NOT REPORTED Normal [facility] Comment on above: Performed By: #### C MPX, CDP #### [facility] [address] [place] [address] [employer]aker: Souleymane Pineda MD WBC Morphology NOT REPORTED Normal [facility] Comment on above: Performed By: #### C MPX, CDP #### [facility] [address] [place] [address] [employer] Flaker: Souleymane Pineda MD CT HEAD WO CONTRASTon [...] the orbits demonstrate no acute abnormality. SINUSES: Hisw-nk-fycngnno paranasal sinus mucosal thickening. SOFT TISSUES/SKULL: No acute abnormality of the visualized skull or soft tissues. IMPRESSION: No acute intracranial abnormality. Interpreted by: Edwin Bentley MD Signed by: Edwin Bentley MD 12/24/20 Final result Normal [facility] CT Head WO ContrastOrdered B y: Keven Ching on 12-24-2020 No acute intracranial abnormality. [facility] Work Phone: EXAMINATION: CT OF [...] the orbits demonstrate no acute abnormality. SINUSES: Xhjc-pb-kxjdlcgs paranasal sinus mucosal thickening. SOFT TISSUES/SKULL: No acute abnormality of the visualized skull or soft tissues. [employer] Phone: Dimitri, [facility] Incoming Radiant Results From [employer] MR Photoelectricity - 12/24/2020 8:49 PM EDT EXAMINATION: CT [...] shift. No abnormal extra-axial fluid collection. The natonio-white differentiation is maintained without evidence of an acute infarct. There is no evidence of hydrocephalus. ORBITS: The visualized portion of the orbits demonstrate no acute abnormality. SINUSES: Onru-xt-dnvjyngl paranasal sinus mucosal thickening. SOFT TISSUES/SKULL: No acute abnormality of the visualized skull or soft tissues. IMPRESSION: No acute intracranial abnormality. [employer] Phone: [employer] Phone: Comp Metabolic Pr/rfx MGon 1 02-24-2020 Bilirubin [Mass/Vol] mg/dL Low 0.3-1.2 [facility] Comment on above: Performed By: #### C MPX, CDP #### [facility] [address] [place] [address] [employer] Flaker: Souleymane Pineda MD (cont.) Normal [facility] Comment on above: Result Comment: Aver age GFR for 20-29 years old: 116 mL/min/1.73sq m Chronic Kidney Disease: <60 mL/min/1.73sq m Kidney failure: <15 mL/min/1.73sq m eGFR calculated using average adult body mass. Additional eGFR calculator available at: http://www.[employer]/multiple_crcl_2011.htm Performed By: #### C MPX, CDP #### [facility] [address] [place] [address] [employer] Flaker: Souleymane Pineda MD Albumin [Mass/Vol] 4.0 g/dL Normal 3.5-5.2 [facility] Comment on above: Performed By: #### C MPX, CDP #### [facility] [address] [place] [address] [employer] Flaker: Souleymane Pineda MD Albumin/Glob Ratio 1.5 Normal 1.0-2.5 [facility] Comment on above: Performed By: #### C MPX, CDP #### [facility] [address] [place] [address] [employer] Flaker: Souleymane Pineda MD Alkaline Phos 90 U/L Normal 35-104 [facility] Comment on above: Performed By: #### C MPX, CDP #### [facility] [address] [place] [address] [employer] Flaker: Souleymane Pineda MD ALT [Catalytic activity/Vol] 40 U/L High 5-33 [facility] Comment on above: Performed By: #### C MPX, CDP #### [facility] [address] [place], [place] [phone] [employer] Flaker: Souleymane Pineda MD Anion gap [Moles/Vol] 11 mmol/L Normal 9-17 [facility] Comment on above: Performed By: #### C MPX, CDP #### [facility] [address] [place], [place] [phone] [employer]aker: Souleymane Pineda MD AST [Catalytic activity/Vol] 19 U/L Normal <32 [facility] Comment on above: Performed By: #### C MPX, CDP #### [facility] [address] [place], [place] [phone] [employer] Flaker: Souleymane Pineda MD BUN/CRE Ratio 15 Normal 9-20 [facility] Comment on above: Performed By: #### C MPX, CDP #### [facility] [address] [place], [place] [address]83 [employer]aker: Souleymane Pineda MD Calcium [Mass/Vol] 8.9 mg/dL Normal 8.6-10.4 [facility] Comment on above: Performed By: #### C MPX, CDP #### [facility] [address] [place], [place] [address]83 [employer]aker: Souleymane Pineda MD Chloride [Moles/Vol] 104 mmol/L Normal 98-107 [facility] Comment on above: Performed By: #### C MPX, CDP #### [facility] [address] [place], [place] [phone] Pot[employer] Flaker: Souleymane Pineda MD CO2 [Moles/Vol] 24 mmol/L Normal 20-31 [facility] Comment on above: Performed By: #### C MPX, CDP #### [facility] [address] [place], [place] [address]83 [employer] Flaker: Souleymane Pineda MD Creatinine [Mass/Vol] 0.60 mg/dL Normal 0.50-0.90 [facility] Comment on above: Performed By: #### C MPX, CDP #### [facility] [address] [place] [address] Pot[employer] Flaker: Souleymane Pineda MD GFR, Amer >60 Normal >60 [facility] Comment on above: Performed By: #### C MPX, CDP #### [facility] [address] [place], [place] [phone] [employer] Flaker: Souleymane Pineda MD GFR,non Amer >60 Normal >60 [facility] Comment on above: Performed By: #### C MPX, CDP #### [facility] [address] [place] [address] [employer] Flaker: Souleymane Pineda MD Glucose [Mass/Vol] 91 mg/dL Normal 70-99 [facility] Comment on above: Performed By: #### C MPX, CDP #### [facility] [address] [place], [place] [phone] [employer]aker: Souleymane Pineda MD Potassium [Moles/Vol] 4.0 mmol/L Normal 3.7-5.3 [facility] Comment on above: Performed By: #### C MPX, CDP #### [facility] [address] [place], [place] [phone] [employer]aker: Souleymane Pineda MD Protein [Mass/Vol] 6.7 g/dL Normal 6.4-8.3 [facility] Comment on above: Performed By: #### C MPX, CDP #### [facility] [address] [place], [place] [phone] [employer]aker: Souleymane Pineda MD Sodium [Moles/Vol] 139 mmol/L Normal 135-144 [facility] Comment on above: Performed By: #### C MPX, CDP #### [facility] [address] [place], [place] [phone] [employer] Flaker: Souleymane Pineda MD Staging: Normal [facility] Comment on above: Result Comment: Stag e 1: Some kidney damage normal GFR Stage 2: Mild kidney damage GFR 60-89 Stage 3: Moderate kidney damage GFR 30-59 Stage 4: Severe kidney damage GFR 15-29 Stage 5: Severe kidney damage GFR <15 ESRD - chronic treatment by dialysis or transplant Performed By: #### C MPX, CDP #### [facility] [address] [place] [address] [employer] Flaker: Souleymane Pineda MD Urea nitrogen [Mass/Vol] 9 mg/dL Normal 6-20 [facility] Comment on above: Performed By: #### C MPX, CDP #### [facility] [address] [place] [address] [employer] Flaker: Souleymane Pineda MD Comprehensive Metabolic Pane l w/ Reflex to MGOrdered By: Keven Ching on 12-24-2020 Albumin [Mass/Vol] 4 g/dL 3.5 - 5.2 g/dL [employer] Phone: Albumin/Globulin [Mass ratio] 1.5 {ratio} [employer] Phone: ALP (Bld) [Catalytic activity/Vol] 90 U/L 35 - 104 U/L [employer] Phone: ALT [Catalytic activity/Vol] 40 U/L High 5 - 33 U/L [employer] Phone: Anion gap [Moles/Vol] 11 mmol/L 9 - 17 mmol/L [employer] Phone: AST [Catalytic activity/Vol] 19 U/L <32 [employer] Phone: Bilirubin [Mass/Vol] mg/dL Low 0.3 - 1 .2 mg/dL [employer] Phone: Calcium [Mass/Vol] 8.9 mg/dL 8.6 - 10. 4 mg/dL [employer] Phone: Chloride [Moles/Vol] 104 mmol/L 98 - 10 7 mmol/L [employer] Phone: CO2 [Moles/Vol] 24 mmol/L 20 - 31 mmol/L [employer] Phone: Creatinine [Mass/Vol] 0.6 mg/dL 0.50 - 0.90 mg/dL [employer] Phone: Free PSA/Total PSA [Mass fraction] 6.7 g/dL 6.4 - 8.3 g/dL [employer] Phone: GFR >60 >60 mL/min [employer] Phone: GFR Non- >60 >60 mL/min [employer] Phone: Glucose [Mass/Vol] 91 mg/dL 70 - 99 mg/dL [employer] Phone: Interpretation and review of laboratory results Abnormal [employer] Phone: Potassium [Moles/Vol] 4.0 mmol/L 3.7 - 5.3 mmol/L [employer] Phone: Sodium [Moles/Vol] 139 mmol/L 135 - 144 mmol/L [employer] Phone: Urea nitrogen (BldV) [Mass/Vol] 9 mg/dL 6 - 20 mg/dL [employer] Phone: Urea nitrogen/Creatinine (Bld) [Mass ratio] 15 [employer] Phone: [employer] Phone: Laboratory - Chemistry and C hemistry - challengeOrdered By: Keven Ching on 12-24-2020 GFR/1.73 sq M.predicted MDRD (S/P/Bld) [Vol rate/Area] [employer] Phone: Comment on above: Average GFR for 20-2 9 years old: 116 mL/min/1.73sq m Chronic Kidney Disease: <60 mL/min/1.73sq m Kidney failure: <15 mL/min/1.73sq m eGFR calculated using average adult body mass. Additional eGFR calculator available at: http://www.[employer]inelan/multiple_crcl_2012.htm Stage 1: Some kidney damage normal GFR Stage 2: Mild kidney damage GFR 60-89 Stage 3: Moderate kidney damage GFR 30-59 Stage 4: Severe kidney damage GFR 15-29 Stage 5: Severe kidney damage GFR <15 ESRD - chronic treatment by dialysis or transplant Vital Signs Date Time Vital Sign Value Performing Clinician Facility 05-02-2024 12:20-0400 Diastolic blood pressure 70 mm[Hg] Infusion 7 Work Phone: [facility] 05-02-2024 12:20-0400 Heart rate 90 /min Infusion 7 Work Phone: [facility] 05-02-2024 12:20-0400 Systolic blood pressure 130 mm[Hg] Infusion 7 Work Phone: [facility] 04-25-2024 13:06-0500 Body height 154.9 cm Corine Gold MD Work Phone: [facility] 04-25-2024 13:06-0500 Body mass index (BMI) [Ratio] 44.01 kg/m2 Corine Gold MD Work Phone: [facility] 04-25-2024 13:06-0500 Body temperature 97.7 [degF] Corine Gold MD Work Phone: [facility] 04-25-2024 13:06-0500 Body weight 105.6 kg Corine Gold MD Work Phone: [facility] 04-25-2024 13:06-0500 Diastolic blood pressure 78 mm[Hg] Corine Gold MD Work Phone: [facility] 04-25-2024 13:06-0500 Heart rate 91 /min Corine Gold MD Work Phone: [facility] 04-25-2024 13:06-0500 SaO2% (BldA) [Mass fraction] 98 % Corine Gold MD Work Phone: [facility] [employer] [facility] 04-25-2024 13:06-0500 Systolic blood pressure 126 mm[Hg] Corine Gold MD Work Phone: [facility] [employer] [facility] 04-24-2024 09:45-0500 Body mass index (BMI) [Ratio] 44.58 kg/m2 Svetlana Ye PA Work Phone: [facility] [employer] [facility] 04-24-2024 09:45-0500 Body temperature 97.9 [degF] Svetlana Ye PA Work Phone: [facility] [employer] 04-24-2024 09:45-0500 Body weight 106.96 kg Svtelana Ye PA Work Phone: [facility] [employer] 04-24-2024 09:45-0500 Diastolic blood pressure 79 mm[Hg] Svetlana Ye PA Work Phone: [facility] [employer] [facility] 04-24-2024 09:45-0500 Heart rate 99 /min Svetlana Ye PA Work Phone: [facility] [employer] 04-24-2024 09:45-0500 SaO2% (BldA) [Mass fraction] 96 % Svetlana Ye PA Work Phone: [facility] [employer] 04-24-2024 09:45-0500 Systolic blood pressure 124 mm[Hg] Svetlana Ye PA Work Phone: [facility] [employer] [facility] 04-15-2024 09:16-0500 Diastolic blood pressure 76 mm[Hg] [facility] 04-15-2024 09:16-0500 Heart rate 88 /min Svetlana Ye PA Work Phone: [facility] [employer] 04-15-2024 09:16-0500 Respiratory rate 16 /min Svetlana Ye PA Work Phone: [facility] [employer] 04-15-2024 09:16-0500 SaO2% (BldA) [Mass fraction] 96 % Svetlana Wallacene PA Work Phone: [facility] [employer] [facility] 04-15-2024 09:16-0500 Systolic blood pressure 122 mm[Hg] Svetlana Wallacene PA Work Phone: [facility] [employer] [facility] 04-15-2024 09:01-0500 Body height 154.9 cm Svetlana Wallacene PA Work Phone: [facility] [employer] [facility] 04-15-2024 09:01-0500 Body mass index (BMI) [Ratio] 45.83 kg/m2 Svetlana Wallacene PA Work Phone: [facility] [employer] 04-15-2024 09:01-0500 Body weight 109.95 kg Svetlana Wallacene PA Work Phone: [facility] [employer] 04-10-2024 11:09-0500 Body temperature 97.5 [degF] Milad Hernandez MD Work Phone: [facility] [employer] [facility] 04-10-2024 11:09-0500 Diastolic blood pressure 63 mm[Hg] Milad Hernandez MD Work Phone: [facility] [employer] [facility] 04-10-2024 11:09-0500 Heart rate 90 /min Milad Hernandez [facility] 04-10-2024 11:09-0500 Respiratory rate 18 /min Milad Hernandez MD Work Phone: [facility] [employer] [facility] 04-10-2024 11:09-0500 SaO2% (BldA) [Mass fraction] 95 % Milad Hernandez MD [facility] 04-10-2024 11:09-0500 Systolic blood pressure 117 mm[Hg] Milad Hernandez MD Work Phone: [facility] [employer] [facility] 04-10-2024 05:25-0500 Body mass index (BMI) [Ratio] 47.4 kg/m2 Milad Hernandez MD Work Phone: [facility] 04-10-2024 05:25-0500 Body weight 113.8 kg Milad Hernandez MD Work Phone: [facility] 04-02-2024 13:07-0500 Body mass index (BMI) [Ratio] 45.73 kg/m2 Zay Roopa DO Work Phone: [facility] 04-02-2024 13:07-0500 Body weight 109.77 kg Zay Roopa DO Work Phone: [facility] 04-02-2024 13:07-0500 Diastolic blood pressure 90 mm[Hg] Zay Roopa DO Work Phone: [facility] 04-02-2024 13:07-0500 Systolic blood pressure 130 mm[Hg] Zay Roopa DO Work Phone: [facility] 03-25-2024 15:21-0500 Body temperature 98.2 [degF] [facility] 03-25-2024 15:21-0500 Diastolic blood pressure 62 mm[Hg] [facility] 03-25-2024 15:21-0500 Heart rate 86 /min [facility] 03-25-2024 15:21-0500 Respiratory rate 20 /min [facility] 03-25-2024 15:21-0500 SaO2% (BldA) [Mass fraction] 99 % [facility] 03-25-2024 15:21-0500 Systolic blood pressure 132 mm[Hg] [facility] 03-25-2024 14:58-0500 Body height 154.9 cm [facility] 03-25-2024 14:58-0500 Body mass index (BMI) [Ratio] 45.57 kg/m2 [facility] 03-25-2024 14:58-0500 Body weight 109.4 kg [facility] 03-20-2024 12:15-0500 Body height 154.9 cm Mariah Peña DO Work Phone: [facility] 03-20-2024 12:15-0500 Body mass index (BMI) [Ratio] 45.54 kg/m2 Mariah Peña DO Work Phone: [facility] 03-20-2024 12:15-0500 Body weight 109.32 kg Mariah Peña DO Work Phone: [facility] 03-20-2024 12:15-0500 Diastolic blood pressure 80 mm[Hg] Mariah Pñea DO Work Phone: [facility] 03-20-2024 12:15-0500 Heart rate 97 /min Mariah Peña DO Work Phone: [facility] 03-20-2024 12:15-0500 SaO2% (BldA) [Mass fraction] 98 % Mariah Peña DO Work Phone: [facility] 03-20-2024 12:15-0500 Systolic blood pressure 129 mm[Hg] Mariah Peña DO Work Phone: [facility] 03-20-2024 12:07-0500 Body height 154.[address] 03-20-2024 12:07-0500 Body mass index (BMI) [Ratio] 45.54 kg/m2 [address] 03-20-2024 12:07-0500 Body weight 109.[address] 03-18-2024 11:03-0500 Body height 154.9 cm Mundo Martinez MD Work Phone: [facility] 03-18-2024 11:03-0500 Body mass index (BMI) [Ratio] 45.69 kg/m2 Mundo Martinez MD Work Phone: [facility] 03-18-2024 11:03-0500 Body temperature 97.9 [degF] Mundo Martinez MD Work Phone: [facility] 03-18-2024 11:03-0500 Body weight 109.68 kg Mundo Martinez MD Work Phone: [facility] 03-18-2024 11:03-0500 Heart rate 77 /min Mundo Martinez MD Work Phone: [facility] 03-18-2024 11:03-0500 SaO2% (BldA) [Mass fraction] 99 % Mundo Martinez MD Work Phone: [facility] 03-06-2024 10:45-0500 Body mass index (BMI) [Ratio] 45.69 kg/m2 Zay Roopa DO Work Phone: [facility] 03-06-2024 10:45-0500 Body weight 109.68 kg Zay Roopa DO Work Phone: [facility] 03-06-2024 10:45-0500 Diastolic blood pressure 84 mm[Hg] Zay Roopa DO Work Phone: [facility] 03-06-2024 10:45-0500 Systolic blood pressure 122 mm[Hg] Zay Roopa DO Work Phone: [facility] 02-28-2024 11:25-0500 Body mass index (BMI) [Ratio] 47.31 kg/m2 Zay Roopa DO Work Phone: [facility] 02-28-2024 11:25-0500 Body weight 113.58 kg Zay Roopa DO Work Phone: [facility] 02-28-2024 11:25-0500 Diastolic blood pressure 80 mm[Hg] Zay Roopa DO Work Phone: [facility] 02-28-2024 11:25-0500 Systolic blood pressure 126 mm[Hg] Zay Roopa DO Work Phone: [facility] 02-09-2024 10:38-0500 Body height 154.9 cm Lamont Shay MD Work Phone: [facility] 02-09-2024 10:38-0500 Body mass index (BMI) [Ratio] 49.13 kg/m2 Lamont Shay MD Work Phone: [facility] 02-09-2024 10:38-0500 Body temperature 98.01 [degF] Lamont Shay MD Work Phone: [facility] 02-09-2024 10:38-0500 Body weight 117.94 kg Lamont Shay MD Work Phone: [facility] 02-09-2024 10:38-0500 Diastolic blood pressure 58 mm[Hg] Lamont Shay MD Work Phone: [facility] 02-09-2024 10:38-0500 Heart rate 111 /min Lamont Shay MD Work Phone: [facility] 02-09-2024 10:38-0500 Respiratory rate 22 /min Lamont Shay MD Work Phone: [facility] 02-09-2024 10:38-0500 SaO2% (BldA) [Mass fraction] 90 % Lamont Shay MD Work Phone: [facility] 02-09-2024 10:38-0500 Systolic blood pressure 118 mm[Hg] Lamont Shay MD Work Phone: [facility] 01-23-2024 13:28-0500 Body height 154.9 cm Lamont Shay MD Work Phone: [facility] 01-23-2024 13:28-0500 Body mass index (BMI) [Ratio] 52.91 kg/m2 Lamont Shay MD Work Phone: [facility] 01-23-2024 13:28-0500 Body temperature 98.4 [degF] Lamont Shay MD Work Phone: [facility] 01-23-2024 13:28-0500 Body weight 127.01 kg Lamont Shay MD Work Phone: [facility] 01-23-2024 13:28-0500 Diastolic blood pressure 74 mm[Hg] Lamont Shay MD Work Phone: [facility] 01-23-2024 13:28-0500 Heart rate 123 /min Lamont Shay MD Work Phone: [facility] 01-23-2024 13:28-0500 Respiratory rate 26 /min Lamont Shay MD Work Phone: [facility] 01-23-2024 13:28-0500 SaO2% (BldA) [Mass fraction] 87 % Lamont Shay MD Work Phone: [facility] 01-23-2024 13:28-0500 Systolic blood pressure 128 mm[Hg] Lamont Shay MD Work Phone: [facility] 01-22-2024 15:39-0500 Diastolic blood pressure 82 mm[Hg] Infusion 1 Work Phone: [facility] 01-22-2024 15:39-0500 Heart rate 97 /min Infusion 1 Work Phone: [facility] 01-22-2024 15:39-0500 Systolic blood pressure 135 mm[Hg] Infusion 1 Work Phone: [facility] 01-22-2024 13:35-0500 SaO2% (BldA) [Mass fraction] 97 % Infusion 1 Work Phone: [facility] Comment on above: on room air 01-19-2024 11:28-0500 Diastolic blood pressure 75 mm[Hg] Infusion 5 Work Phone: [facility] 01-19-2024 11:28-0500 Heart rate 88 /min Infusion 5 Work Phone: [facility] 01-19-2024 11:28-0500 Systolic blood pressure 126 mm[Hg] Infusion 5 Work Phone: [facility] 01-19-2024 10:00-0500 Body temperature 97.3 [degF] Infusion 5 Work Phone: [facility] 01-17-2024 11:09-0500 Diastolic blood pressure 69 mm[Hg] Infusion 6 Work Phone: [facility] 01-17-2024 11:09-0500 Heart rate 85 /min Infusion 6 Work Phone: [facility] 01-17-2024 11:09-0500 Systolic blood pressure 129 mm[Hg] Infusion 6 Work Phone: [facility] 01-09-2024 09:18-0500 Body height 154.9 cm Lamont Shay MD Work Phone: [facility] 01-09-2024 09:18-0500 Body mass index (BMI) [Ratio] 53.66 kg/m2 Lamont Shay MD Work Phone: [facility] 01-09-2024 09:18-0500 Body temperature 98.01 [degF] Lamont Shay MD Work Phone: [facility] 01-09-2024 09:18-0500 Body weight 128.82 kg Lamont Shay MD Work Phone: [facility] 01-09-2024 09:18-0500 Diastolic blood pressure 72 mm[Hg] Lamont Shay MD Work Phone: [facility] 01-09-2024 09:18-0500 Heart rate 101 /min Lamont Shay MD Work Phone: [facility] 01-09-2024 09:18-0500 Respiratory rate 20 /min Lamont hSay MD Work Phone: [facility] 01-09-2024 09:18-0500 SaO2% (BldA) [Mass fraction] 90 % Lamont Shay MD Work Phone: [facility] 01-09-2024 09:18-0500 Systolic blood pressure 140 mm[Hg] Lamont Shay MD Work Phone: [facility] 01-05-2024 13:38-0500 Diastolic blood pressure 83 mm[Hg] Infusion 8 Work Phone: [facility] 01-05-2024 13:38-0500 Heart rate 105 /min Infusion 8 Work Phone: [facility] 01-05-2024 13:38-0500 Systolic blood pressure 139 mm[Hg] Infusion 8 Work Phone: [facility] 11-15-2023 09:05-0400 Body height 154.9 cm Lamont Shay MD Work Phone: [facility] 11-15-2023 09:05-0400 Body mass index (BMI) [Ratio] 51.58 kg/m2 Lamont Shay MD Work Phone: [facility] 11-15-2023 09:05-0400 Body temperature 97.81 [degF] Lamont Shay MD Work Phone: [facility] 11-15-2023 09:05-0400 Body weight 123.83 kg Lamont Shay MD Work Phone: [facility] 11-15-2023 09:05-0400 Diastolic blood pressure 66 mm[Hg] Lamont Shay MD Work Phone: [facility] 11-15-2023 09:05-0400 Heart rate 60 /min Lamont Shay MD Work Phone: [facility] 11-15-2023 09:05-0400 Respiratory rate 24 /min Lamont Shay MD Work Phone: [facility] 11-15-2023 09:05-0400 Systolic blood pressure 126 mm[Hg] Lamont Shay MD Work Phone: [facility] 10-13-2023 13:51-0400 Diastolic blood pressure 74 mm[Hg] Infusion 8 Work Phone: [facility] 10-13-2023 13:51-0400 Heart rate 77 /min Infusion 8 Work Phone: [facility] 10-13-2023 13:51-0400 Systolic blood pressure 134 mm[Hg] Infusion 8 Work Phone: [facility] 10-10-2023 09:25-0400 Body height 154.9 cm Lamont Shay MD Work Phone: [facility] 10-10-2023 09:25-0400 Body mass index (BMI) [Ratio] 48.94 kg/m2 Lamont Shay MD Work Phone: [facility] 10-10-2023 09:25-0400 Body temperature 97.5 [degF] Lamont Shay MD Work Phone: [facility] 10-10-2023 09:25-0400 Body weight 117.48 kg Lamont Shay MD Work Phone: [facility] 10-10-2023 09:25-0400 Diastolic blood pressure 78 mm[Hg] Lamont Shay MD Work Phone: [facility] 10-10-2023 09:25-0400 Heart rate 88 /min Lamont Shay MD Work Phone: [facility] 10-10-2023 09:25-0400 Respiratory rate 22 /min Lamont Shay MD Work Phone: [facility] 10-10-2023 09:25-0400 SaO2% (BldA) [Mass fraction] 95 % Lamont Shay MD Work Phone: [facility] 10-10-2023 09:25-0400 Systolic blood pressure 116 mm[Hg] Lamont Shay MD Work Phone: [facility] 09-19-2023 14:22-0400 Body height 158.4 cm Sagar Barth MANAGER DIALYSIS.CHILD NURSE Work Phone: [facility] 09-19-2023 14:22-0400 Body mass index (BMI) [Ratio] 47.33 kg/m2 Koli Green MANAGER DIALYSIS.CHILD NURSE Work Phone: [facility] 09-19-2023 14:22-0400 Body temperature 99.1 [degF] Sagar Green MANAGER DIALYSIS.CHILD NURSE Work Phone: [facility] 09-19-2023 14:22-0400 Body weight 118.75 kg Cameroni Green MANAGER DIALYSIS.CHILD NURSE Work Phone: [facility] 09-19-2023 14:22-0400 Diastolic blood pressure 81 mm[Hg] Koli Green MANAGER DIALYSIS.CHILD NURSE Work Phone: [facility] 09-19-2023 14:22-0400 Heart rate 80 /min Koli Green MANAGER DIALYSIS.CHILD NURSE Work Phone: [facility] 09-19-2023 14:22-0400 Systolic blood pressure 115 mm[Hg] Cameroni Green MANAGER DIALYSIS.CHILD NURSE Work Phone: [facility] 08-18-2023 09:26-0400 Diastolic blood pressure 51 mm[Hg] Curtis Lepe PA-C Work Phone: [facility] 08-18-2023 09:26-0400 Heart rate 88 /min Curtis Lepe PA-C Work Phone: [facility] 08-18-2023 09:26-0400 SaO2% (BldA) [Mass fraction] 97 % Curtis Lepe PA-C Work Phone: [facility] 08-18-2023 09:26-0400 Systolic blood pressure 116 mm[Hg] Curtis Lepe PA-C Work Phone: [facility] 04-14-2023 11:08-0500 Diastolic blood pressure 62 mm[Hg] Infusion 7 Work Phone: [facility] 04-14-2023 11:08-0500 Heart rate 84 /min Infusion 7 Work Phone: [facility] 04-14-2023 11:08-0500 Systolic blood pressure 109 mm[Hg] Infusion 7 Work Phone: [facility] 04-13-2023 10:50-0500 Diastolic blood pressure 63 mm[Hg] Infusion 7 Work Phone: [facility] 04-13-2023 10:50-0500 Heart rate 86 /min Infusion 7 Work Phone: [facility] 04-13-2023 10:50-0500 Systolic blood pressure 127 mm[Hg] Infusion 7 Work Phone: [facility] 04-12-2023 13:45-0500 Diastolic blood pressure 58 mm[Hg] Infusion 7 Work Phone: [facility] 04-12-2023 13:45-0500 Heart rate 79 /min Infusion 7 Work Phone: [facility] 04-12-2023 13:45-0500 Systolic blood pressure 120 mm[Hg] Infusion 7 Work Phone: [facility] 11-11-2022 10:55-0400 Diastolic blood pressure 63 mm[Hg] Infusion 8 Work Phone: [facility] 11-11-2022 10:55-0400 Heart rate 83 /min Infusion 8 Work Phone: [facility] 11-11-2022 10:55-0400 Systolic blood pressure 110 mm[Hg] Infusion 8 Work Phone: [facility] 07-28-2022 10:15-0400 Diastolic blood pressure 50 mm[Hg] Infusion 8 Work Phone: [facility] 07-28-2022 10:15-0400 Heart rate 80 /min Infusion 8 Work Phone: [facility] 07-28-2022 10:15-0400 Systolic blood pressure 105 mm[Hg] Infusion 8 Work Phone: [facility] 12-03-2021 09:47-0400 Diastolic blood pressure 81 mm[Hg] Jesse Borrego MD Work Phone: [facility] 12-03-2021 09:47-0400 Heart rate 66 /min Jesse Borrego MD Work Phone: [facility] 12-03-2021 09:47-0400 SaO2% (BldA) [Mass fraction] 100 % Jesse Borrego MD Work Phone: [facility] 12-03-2021 09:47-0400 Systolic blood pressure 131 mm[Hg] Jesse Borrego MD Work Phone: [facility] 10-20-2021 12:00-0400 Diastolic blood pressure 101 mm[Hg] Lucila Mota MD Work Phone: [employer] 10-20-2021 12:00-0400 Heart rate 85 /min Lucila Mota MD Work Phone: [employer] 10-20-2021 12:00-0400 Respiratory rate 12 /min Lucila Mota MD Work Phone: [employer] 10-20-2021 12:00-0400 SaO2% (BldA) [Mass fraction] 98 % Lucila Mota MD Work Phone: [facility] [employer] 10-20-2021 12:00-0400 Systolic blood pressure 136 mm[Hg] Lucila Mota MD Work Phone: [employer] 10-20-2021 08:00-0400 Body temperature 98.2 [degF] Lucila Mota MD Work Phone: [facility] [employer] 12-24-2020 19:36-0400 Body temperature 99 [degF] Keven Ching DO Work Phone: [employer] Work Phone: 12-24-2020 19:36-0400 Diastolic blood pressure 80 mm[Hg] Keven Ching DO Work Phone: [employer] Work Phone: 12-24-2020 19:36-0400 Heart rate 108 /min Keven Ching DO Work Phone: [employer] Work Phone: 12-24-2020 19:36-0400 Respiratory rate 20 /min Keven Ching DO Work Phone: [employer] Work Phone: 12-24-2020 19:36-0400 SaO2% (BldA) [Mass fraction] 96 % Keven Ching DO Work Phone: [employer] Work Phone: 12-24-2020 19:36-0400 Systolic blood pressure 136 mm[Hg] Keven Ching DO [facility] Work Phone: Encounters Encounter Date Encounter Type Care Provider Facility Start: 05-02-2024 End: 05-02-2024 Orders Only Svetlana HERNANDEZ Work Phone: [facility] Gynecology Oncology, A Department of [facility] Comment on above: Postoperative infect ion, unspecified type, subsequent encounter (Primary Dx) Chronic migraine wit hout aura, with intractable migraine, so stated, with status migrainosus (Primary Dx); Intractable chronic migraine without aura and with status migrainosus; Intractable chronic migraine without aura and without status migrainosus Start: 05-01-2024 End: 05-01-2024 Orders Only Mariah Pñea DO Work Phone: [facility] Comment on above: Moderate persistent asthma, unspecified whether complicated Start: 04-30-2024 End: 04-30-2024 Telephone encounter Caterina Smith CMA [facility] Start: 04-29-2024 End: 04-29-2024 Orders Only Mali MCCLAIN Work Phone: [facility] Comment on above: Postoperative surgic al complication involving genitourinary system associated with genitourinary procedure, unspecified complication Start: 04-27-2024 ambulatory NON STAFF Facility:[facility] Start: 04-25-2024 End: 04-25-2024 Office outpatient new 45 minutes Corine Gold MD Work Phone: [facility] Comment on above: Muscle spasm (Primar y Dx); Fatigue due to depression; Nausea and vomiting, unspecified vomiting type; Mild persistent asthma without status asthmaticus without complication; Psychogenic nonepileptic seizure Start: 04-24-2024 End: 04-24-2024 Documentation procedure [facility] Start: 04-24-2024 End: 04-24-2024 Postop follow up visit related to original px Svetlana HERNANDEZ Work Phone: [facility] Comment on above: Post-operative pain (Primary Dx) Start: 04-19-2024 End: 04-22-2024 ambulatory Sagar Barth APRSUGEY Work Phone: Neurology [facility] Comment on above: Infusions Start: 04-16-2024 End: 04-16-2024 Bamboo flowsheet Zay [...] to original px Svetlana HERNANDEZ Work Phone: [facility] Gynecology Oncology, A Department of [facility] Comment on above: Postoperative surgic al complication involving genitourinary system associated with genitourinary procedure, unspecified complication (Primary Dx); Post-op pain; Sweating profusely; Menopausal symptoms; Nausea and vomiting, unspecified vomiting type Start: 04-08-2024 End: 04-08-2024 Telephone encounter Sofia Ku [facility] Gynecology Oncology, A Department of [facility] Start: 04-08-2024 End: 04-10-2024 Evaluation and management of inpatient Yordy Melton DO Work Phone: [facility] - GEN 6 Acute Comment on above: [...] 04-01-2024 Orders Only Svetlana HERNANDEZ Work Phone: [facility] Gynecology Oncology, A Department of [facility] Comment on above: S/P bilateral salpin go-oophorectomy Post-op pain (Primar y Dx) Start: 03-25-2024 End: 03-25-2024 Patient encounter status [facility] Start: 03-25-2024 End: 03-25-2024 Orders Only Mundo Martinez MD Work Phone: [facility] Gynecology Oncology, A Department of [facility] Comment on above: Preop testing (Prima ry Dx); Bilateral ovarian cysts Start: 03-21-2024 End: 03-21-2024 Telephone encounter Mundo Martinez MD Work Phone: [facility] Gynecology Oncology, A Department of [facility] Comment on above: Other (Surgery quest ions) Start: 03-21-2024 End: 03-21-2024 ambulatory Sagar Barth APRN.CNP Work Phone: Neurology Headache [facility] Comment on above: Intractable chronic migraine without aura and without status migrainosus (Primary Dx) Start: 03-21-2024 End: 03-21-2024 Telemedicine consultation with patient Sagar Barth APRN.CNP Work Phone: Neurology [facility] Start: 03-20-2024 End: 03-20-2024 Office outpatient new 45 minutes Mariah Peña DO Work Phone: [facility] Comment on above: Asthma, unspecified asthma severity, unspecified whether complicated, unspecified whether persistent (Primary Dx); Bilateral ovarian cysts; Moderate asthma with acute exacerbation, unspecified whether persistent; Encounter for preoperative pulmonary examination; Pulmonary nodule; Gastroesophageal reflux disease, unspecified whether esophagitis present Start: 03-20-2024 End: 03-20-2024 Preoperative state Mundo Martinez MD Work Phone: [facility] Start: 03-20-2024 End: 03-20-2024 Orders Only Mundo Martinez MD Work Phone: [facility] Gynecology Oncology, A Department of [facility] Comment on above: Bilateral ovarian cy sts (Primary Dx); Moderate asthma with acute exacerbation, unspecified whether persistent; Encounter for preoperative pulmonary examination Acute cough [R05.1] (Primary Dx) Start: 03-19-2024 End: 03-19-2024 Orders Only Mundo Martinez MD Work Phone: [facility] Gynecology Oncology, A Department of [facility] Comment on above: Bilateral ovarian cy sts (Primary Dx); Preop testing Start: 03-19-2024 End: 03-19-2024 Patient encounter status Mundo Martinez MD Work Phone: [facility] Start: 03-18-2024 End: 03-18-2024 Office outpatient new 60 minutes Mundo Martinez MD Work Phone: [facility] Gynecology Oncology, A Department of [facility] Comment on above: Cyst of right ovary (Primary Dx) Start: 03-06-2024 End: 03-06-2024 Office outpatient visit 15 minutes Zay Blas DO Work Phone: [facility] Comment on above: Cyst of right [...] 02-22-2024 End: 02-22-2024 Telephone encounter Sagar Barth APRN.CHILD NURSE Work Phone: Neurology Headache [facility] Comment on above: Insurance Authorizat ion (Zolmitriptan) Start: 02-16-2024 End: 02-16-2024 ambulatory Dariusz Estrada Facility:[facility] Start: 02-09-2024 End: 02-09-2024 Office outpatient visit 25 minutes Lamont Shay MD Work Phone: [facility] Comment on above: Generalized abdomina l pain (Primary Dx); Intractable nausea and vomiting; Mild persistent asthma with (acute) exacerbation ([facility]) Start: 02-09-2024 End: 02-09-2024 ambulatory LAMONT SHAY Not Available Start: 01-31-2024 End: 02-02-2024 Clinisync Result Encounter Generic External Data Provider [facility] External Department Unsolicited Start: 01-31-2024 End: 02-02-2024 Clinisync Result Encounter Generic External Data Provider [facility] External Department Unsolicited Start: 01-29-2024 End: 01-30-2024 Telephone encounter Sagar Barth APRN.CHILD NURSE Work Phone: Neurology Headache [facility] Start: 01-24-2024 End: 01-24-2024 Orders [...] End: 01-22-2024 Patient encounter procedure Raiza Morales APRN.CHILD NURSE Work Phone: Neurology Comment on above: [...] Start: 01-16-2024 End: 01-16-2024 ambulatory Sagar Barth APRN.CHILD NURSE Work Phone: Neurology Headache [facility] Comment on above: Please help Start: [...] OB Start: 12-11-2023 End: 12-11-2023 ambulatory ZAY GREERO Not Available Start: 12-05-2023 End: 12-05-2023 ambulatory Ольга Aguilar MANAGER DIALYSIS.CHILD NURSE Work Phone: Neurology Comment on above: Intractable chronic migraine without aura and without status migrainosus (Primary Dx) Start: 12-05-2023 End: 12-05-2023 Telemedicine consultation with patient Ольга Aguilar MANAGER DIALYSIS.CHILD NURSE Work Phone: Neurology Start: 11-15-2023 End: [...] 11-06-2023 End: 11-06-2023 Orders Only Ronit Mustafa INDUSTRIAL MAINTENANCE REPAIRER HELPER Work Phone: [facility] Comment on above: Severe persistent as thma without complication (CMS/HCC) Start: 10-13-2023 End: 10-13-2023 ambulatory Infusion Main Chair 8 Work Phone: Neurology Comment on above: Intractable chronic migraine without aura and without status migrainosus (Primary Dx) Start: 10-10-2023 End: 10-10-2023 Bamboo flowsheet Lamont Shay MD Work Phone: [facility] Start: 10-10-2023 End: 10-10-2023 Robinson flowstawanda Shay MD Work Phone: [facility] Start: 10-10-2023 End: 10-10-2023 Office outpatient visit 15 minutes Lamont Shay MD Work Phone: [facility] Comment on above: Acute bronchitis due to other specified organisms (Primary Dx); Mild persistent asthma with (acute) exacerbation ([facility]) Start: 10-10-2023 End: 10-10-2023 ambulatory LAMONT SHAY Not Available Start: 09-25-2023 End: 09-25-2023 ambulatory ZAY BLAS Not Available Start: 09-19-2023 End: 09-19-2023 ambulatory SAGAR BARTH Facility:[facility] Start: 09-19-2023 End: 09-19-2023 Patient encounter procedure Sagra Barth APRN.CHILD NURSE Work Phone: [facility] Comment on above: Intractable chronic migraine without aura and without status migrainosus (Primary Dx) Start: 08-21-2023 End: 08-21-2023 ambulatory LEW KAVITA Not Available Start: 08-18-2023 End: 08-18-2023 ambulatory CURTIS LEPE Facility:[facility] Start: 08-18-2023 End: 08-18-2023 Patient encounter procedure Curtis Lepe PA-C Work Phone: Neurology Comment on above: Intractable chronic migraine without aura and without status migrainosus (Primary Dx); Psychogenic nonepileptic seizure Start: 08-16-2023 ambulatory Sagar Barth APR N.CHILD NURSE Work Phone: [facility] Start: 08-16-2023 Subsequent hospital visit by physician Sagar Barth APRN.CHILD NURSE Work Phone: [facility] Comment on above: Hospital visit Start: 08-08-2023 ambulatory Sagar Barth APR N.CHILD NURSE Work Phone: [facility] Comment on above: Injection Start: 07-10-2023 End: 07-10-2023 ambulatory Sagar Barth MANAGER DIALYSIS.FADY Work Phone: Neurology [facility] Comment on above: Intractable chronic migraine without aura and without status migrainosus (Primary Dx) Start: 07-10-2023 End: 07-10-2023 Telemedicine consultation with patient Sagar Tab MANAGER DIALYSIS.FADY Work Phone: Neurology [facility] Start: 06-26-2023 ambulatory Ольга Rhina zazueta MANAGER DIALYSIS.CHILD NURSE Work Phone: Neurology Comment on above: [...] End: 04-14-2023 Patient encounter procedure Suzan Driver APRN.CHILD NURSE Work Phone: Neurology Comment on above: [...] Start: 04-12-2023 End: 04-12-2023 ambulatory SUZAN DRIVER Facility:[facility] Start: 04-12-2023 End: 04-12-2023 Patient encounter procedure Suzan Driver APRN.CHILD NURSE Work Phone: Neurology Comment on above: [...] Telephone encounter Angely rousseau RN Work Phone: [facility] Comment on above: Insurance Authorizat ion (Aimovig 70MG/ML auto-injectors/) Start: 03-23-2023 End: 03-23-2023 ambulatory KOLI GREEN Facility:[facility] Start: 12-13-2022 Refill Sagar Barth APR N.CHILD NURSE Work Phone: Neurology Headache [facility] Comment on above: Refill Request Infusion (HEADACHE I NFUSIONS) Start: 12-09-2022 Refill Ольга zazueta MANAGER DIALYSIS.CHILD NURSE Work Phone: Neurology Comment on above: Refill Request Start: 11-11-2022 End: 11-11-2022 ambulatory Infusion Main Chair 8 Work Phone: Neurology Comment on above: Intractable chronic migraine without aura and with status migrainosus (Primary Dx) Start: 11-10-2022 End: 11-10-2022 ambulatory Ольга Aguilar MANAGER DIALYSIS.CHILD NURSE Work Phone: Neurology Comment on above: Intractable chronic migraine without aura and with status migrainosus (Primary Dx) Nerve block Start: 11-10-2022 Telephone encounter Suzan dinero APRN.CHILD NURSE Work Phone: Neurology Comment on above: Infusion Start: 11-10-2022 End: 11-10-2022 Telemedicine consultation with patient Ольга Aguilar APRN.CHILD NURSE Work Phone: [facility] Start: 10-12-2022 ambulatory Suzan Callahan rajeevm MANAGER DIALYSIS.CHILD NURSE Work Phone: Neurology Comment on above: Botox Start: 10-12-2022 E-mail encounter alexus brown caregiver Suzan Driver MANAGER DIALYSIS.CHILD NURSE Work Phone: [facility] Start: 09-29-2022 Telephone encounter Angely rousseau RN Work Phone: [facility] Comment on above: Insurance Authorizat ion (Zomig 5MG nasal spray/) Start: 09-27-2022 ambulatory Sagar Barth APR N.CHILD NURSE Work Phone: [facility] Comment on above: My apt Monday Start: 09-16-2022 ambulatory Sagar Green APR N.CHILD NURSE Work Phone: [facility] Start: 09-16-2022 Patient encounter procedure Sagar Barth MANAGER DIALYSIS.CHILD NURSE Work Phone: NEUR [facility]ACHE [facility] Comment on above: Appointment Start: 08-31-2022 End: 08-31-2022 ambulatory Cameronnisha Green MANAGER DIALYSIS.CHILD NURSE Work Phone: Neurology Comment on above: Chronic migraine w/o aura, not intractable, w/o stat migr (Primary Dx) Start: 08-31-2022 End: 08-31-2022 Telemedicine consultation with patient Sagar Barth MANAGER DIALYSIS.CHILD NURSE Work Phone: [facility] Start: 08-09-2022 ambulatory Cameronnisha Green APR N.CHILD NURSE Work Phone: NEUR [facility]ACHE [facility] Comment on above: Pain Start: 08-08-2022 End: 08-08-2022 ambulatory Jesse Borrego MD Work Phone: Neurology Comment on above: Intractable chronic migraine without aura and with status migrainosus (Primary Dx) Start: 08-08-2022 End: 08-08-2022 Telemedicine consultation with patient Jesse Borrego MD Work Phone: [facility] Start: 08-07-2022 ambulatory Jesse rick MD Work Phone: Neurology Comment on above: Name of medication Start: 07-28-2022 End: 07-28-2022 ambulatory Infusion Main Chair 8 Work Phone: Neurology Comment on above: Intractable chronic migraine without aura and with status migrainosus (Primary Dx) Start: 07-21-[address] ZAY BLAS . Facili ty:[facility] Start: 07-14-2022 Encounter for other preprocedural examination DR ZAY BLAS . [facility] Start: 07-12-2022 End: 07-13-[address] ZAY BLAS . Facility:[facility] Start: 07-12-2022 End: 07-13-2022 Encounter for other preprocedural examination DR ZAY BLAS . Facility:[facility] Start: 07-05-2022 ambulatory KRISTOFER Nunn acility:[facility] Start: 06-27-2022 Telephone encounter Sagar Barth APRN.CHILD NURSE Work Phone: Neurology Comment on above: Appointment (infusio n) Start: 06-20-2022 End: 06-20-2022 ambulatory MANJINDER DEAL Facility:[facility] Start: 06-19-2022 End: 06-19-2022 ambulatory CHAYITO NARVAEZ . Facility:[facility] Start: 06-13-2022 [facility] Work Phone: Neurology Comment on above: Admission Start: 06-13-2022 ambulatory Jesse Rainey krupa MORENO Work Phone: [facility] Start: [...] with patient Nelly Piotr MINER Work Phone: [facility] Start: 11-09-2021 ambulatory Tyrone Dolan MD, PhD Work Phone: [facility] Start: 11-09-2021 Patient encounter procedure Tyrone Dolan MD, PhD Work Phone: Neurology Comment on above: Request Veido appoin tment Start: 11-08-2021 ambulatory Tyrone Dolan MD, PhD Work Phone: [facility] Start: 11-08-2021 Patient encounter procedure [...] patient Tyrone Dolan MD, PhD Work Phone: [facility] Start: 10-26-2021 Patient encounter procedure Román Storey MD Work Phone: Neurology Comment on above: Seizure-like activit y (HCC) (Primary Dx) Start: 10-19-2021 End: 10-20-2021 Evaluation and management of inpatient LUCILA MOTA [facility] Start: 10-19-2021 End: 10-20-2021 Evaluation and management of inpatient Lucila Mota MD Work Phone: [address] Neuro ICU Start: 10-19-2021 End: 10-19-2021 ambulatory SHAIKH Joseph WALLS Facility:[facility] Start: 10-07-2021 End: 10-07-[address] ZAY BLAS . Facility:[facility] Start: 10-06-2021 End: 10-06-2021 ambulatory SUKHDEEP DOCKERY Facility:[facility] Start: 10-03-2021 End: 10-04-2021 ambulatory MANJINDER DEAL Facility:[facility] Start: 10-01-2021 End: 10-02-2021 Evaluation and management of inpatient DR DERIK ARTHUR Facility:[facility] Start: 10-01-2021 Encounter for preprocedural laboratory examination DR ZAY BLAS . [facility] Start: 09-29-2021 End: 09-30-[address] ZAY BLAS . Facility:[facility] Start: 09-29-2021 End: 09-30-2021 Encounter for preprocedural laboratory examination DR ZAY BLAS . Facility:[facility] Start: 09-21-2021 End: 09-22-[address] DERIK ARTHUR Facility:[facility] Start: 09-14-2021 End: 09-15-[address] DERIK ARTHUR Facility:[facility] Start: 08-14-2021 End: 08-14-2021 ambulatory BLUE GRACE Facility:[facility] Start: 08-14-2021 End: 06-25-2022 ambulatory BLUE GRACE Facility:[facility] Start: 12-24-2020 End: 12-24-2020 Emergency department patient visit DERIK ARTHUR [facility] Start: 12-24-2020 End: 12-24-2020 Emergency department patient visit Keven Ching DO Work Phone: [facility] ED Comment on above: Migraine without sta tus migrainosus, not intractable, unspecified migraine type (Primary Dx) Start: 02-18-2020 End: 02-18-2020 Telephone encounter Román Storey Work Phone: Neurology Comment on above: Future Appointment ( [place], [place], Any) Procedures Date Procedure Procedure Detail Performing Clinician Start: 04-25-2024 Adult depression scr eening assessment Corine Gold MD Work Phone: Start: 04-16-2024 IGP,APTIMA HPV,AGE GDLN Zay Roopa DO Work Phone: Start: 04-10-2024 Comprehensive metabo [...] 04-08-2024 Basic metabolic panel calcium total Yordy Melton DO Work Phone: Start: 04-08-2024 Hepatic function panel Yordy Melton DO Work Phone: Start: 04-08-2024 Urnls dip stick/tabl et rgnt auto w/o microscopy Yordy Melton DO Work Phone: Start: 04-08-2024 Culture [...] Culture bacterial blood aerobic w/id isolates Yordy Melton DO Work Phone: Start: 04-08-2024 Adult [...] Phone: Start: 03-20-2024 PULMONARY FUNCTION TEST Mariah Brown Casey DO Work Phone: Start: 01-31-2024 Bacteria identified in Urine by Culture Generic External Data Provider Start: 03-03-2022 Adult depression scr eening assessment Mundo Martinez MD Work Phone: Start: 10-29-2021 Adult depression scr eening assessment Tyrone Dolan MD, PhD Work Phone: Start: 10-20-2021 EEG VIDEO MONITORING Marcy Perez [facility] Work Phone: Start: 10-20-2021 [address]IC METABOLIC PANE L W/ REFLEX TO MG FOR LOW K Puri Rikki Mota MD Work Phone: Start: 10-20-2021 Blood count complete auto&auto difrntl wbc Lo Perez [facility] Work Phone: Start: 10-20-2021 IMMATURE PLATELET FRACTION Lo Preez [facility] Work Phone: Start: 10-19-2021 Assay of lactate Alexiso radha Perez [facility] Work Phone: Start: 10-19-2021 Ecg routine ecg w/le ast 12 lds w/i&r Lo Perez [facility] Work Phone: Start: 10-19-2021 Mri brain brain stem w/o w/contrast material Lo Perez [facility] Work Phone: Start: 10-19-2021 RESPIRATORY CARE VERA LUATION ONLY Lo Perez [facility] Work Phone: Start: 10-01-2021 Resection of [...] or Tdap) [facility] Start: 09-20-2025 DTaP/Tdap/Td vaccine (7 - Td or Tdap) DTaP/Tdap/Td vaccine (7 - Td or Tdap) [facility] Start: 09-20-2025 Urine microalbumin profile [facility] Start: 04-25-2025 Adult BMI Screening Adult BMI Screen ing [facility] Start: 04-25-2025 Depression Screening Depression Scre ening [facility] Start: 04-25-2025 Tobacco Screening Tobacco Screening [facility] Start: 04-24-2025 Adult BMI Screening Adult BMI Screen ing [facility] Start: 04-15-2025 Adult BMI Screening Adult BMI Screen ing [facility] Start: 04-08-2025 Depression Screening Depression Scre ening [facility] Start: 04-08-2025 Tobacco Screening Tobacco Screening [facility] Start: 03-28-2025 Adult BMI Screening Adult BMI Screen ing [facility] Start: 03-28-2025 Tobacco Screening Tobacco Screening [facility] Start: 03-25-2025 Adult BMI Screening Adult BMI Screen ing [facility] Start: 03-25-2025 Tobacco Screening Tobacco Screening [facility] Start: 03-20-2025 Adult BMI Screening Adult BMI Screen ing [facility] Start: 03-20-2025 Tobacco Screening Tobacco Screening [facility] Start: 03-18-2025 Adult BMI Screening Adult BMI Screen ing [facility] Start: 03-18-2025 Tobacco Screening Tobacco Screening [facility] Start: 07-25-2024 End: 07-25-2024 ambulatory 07/25/2024 1:00 PM EDT [facility] Neurology [address] [place] [address] [facility] Comment on above: [facility] Start: 06-06-2024 End: 06-06-2024 Telemedicine consultation with patient 06/06/2024 4:30 PM EDT Telemedicine [facility] [address] [place] [address] [place] [address] Corine Gold MD [address] [place] [address] [facility] Start: 05-28-2024 End: 05-28-2024 Patient encounter procedure 05/28/2024 1:00 PM EDT Office Visit [facility] [address] [place] [phone] Mariah Peña DO [address] [address] [facility] Start: 05-14-2024 End: 05-14-2024 Patient encounter procedure 05/14/2024 9:00 AM EDT Office Visit Joiemicki Díazn [facility] [address] [place] [phone] Svetlana Ye PA [address] [place] [address] Joie Pradeep Antonio [facility] Start: 05-03-2024 End: 05-03-2024 ambulatory 05/03/2024 9:30 AM EDT [facility] Neurology [address] [place] [address] Curtis Lepe PA-C [address] [place] [address] Head aches adding something else Neurology Comment on above: Head aches adding so mething else Start: 05-02-2024 End: 05-02-2024 ambulatory 05/02/2024 2:30 PM EDT Infusion Center Neurology [address] [place] [address] [facility] infusion Neurology Comment on above: [facility] infusion Start: 04-30-2024 End: 04-30-2024 Patient encounter procedure 04/30/2024 9:00 AM EDT Office Visit Joie Pradeep Díazn [facility] [address] [place] [phone] Svetlana Ye PA [address] [place] [address] Joie Antonio [facility] Start: 04-25-2024 End: 04-25-2024 Patient encounter procedure 04/25/2024 1:00 PM EST Office Visit [facility] [address] [place] [phone] Corine Gold MD [address], [facility] [place] [address] [facility] Start: 04-16-2024 End: 04-16-2024 Patient encounter procedure 04/16/2024 8:30 AM EST Office Visit [facility] [address] [place] [phone] Zay Blas DO [address] [place] [address] [facility] Start: 04-15-2024 End: 04-15-2024 Patient encounter procedure 04/15/2024 9:00 AM EST Office Visit [facility] Gynecology Oncology, A Department of [facility] [address] [place] [address] Svetlana Ye PA [address] [place] [address] [facility] Gynecology Oncology, A Department of [facility] Start: 04-10-2024 End: 04-10-2024 Patient encounter procedure 04/10/2024 11:30 AM EST Office Visit Joie Antonio [facility] [address] [place] [address] Svetlana Ye PA [address] [place] [address] Joie Antonio [facility] Start: 04-10-2024 End: 04-10-2024 Professional / ancillary services management 04/10/2024 9:30 AM EST Ancillary Procedure [facility] [address] [place] [address] [facility] Start: 03-29-2024 End: 03-29-2024 ambulatory 03/29/2024 1:30 PM EST Infusion Center Neurology [address] [place] [address] [facility] Neu[facility] Comment on above: [facility] infusion Start: 03-28-2024 End: 03-28-2024 Admission to same day surgery center 03/28/2024 9:00 AM EST - 03/28/2024 12:45 PM EST Surgery [address] [phone] Mundo Martinez MD [address] [place] [address] DAVINCI LYSIS OF ADHESIONS [facility] Comment on above: [facility]CI LYSIS OF ADH ESIONS Start: 03-28-2024 End: 03-28-2024 DAVINCI LYSIS OF ADHESIONS [facility] ADHESIONS OVARIAN CYST BILATERAL 03/28/2024 9:00 AM EST [facility] Start: 03-28-2024 End: 03-28-2024 DAVINCI SALPINGO OOPHORECTOMY DAVINCI SALPINGO OOPHORECTOMY OVARIAN CYST BILATERAL 03/28/2024 9:00 AM EST [facility] Start: 03-28-2024 Subsequent hospital visit by physician 03/28/2024 9:00 AM EST Hospital Encounter [address] [address] Mundo Martinez MD [address] [place] [address] [facility] Start: 03-25-2024 End: 03-25-2024 Patient encounter procedure 03/25/2024 2:15 PM EST [facility] [place] [address] [place] [address] [facility] Start: 03-22-2024 End: 03-22-2024 ambulatory 03/22/2024 1:30 PM [facility] Infusion Center Neurology [address] [place] [address] [facility] Neu[facility] Comment on above: vyepti [...] ovarian cyst Expected: 02/28/2024 (Approximate), Expires: 02/27/2025 [facility] Comment on above: Expected: 02/28/2024 (Approximate), Expires: 02/27/2025 Start: 02-28-2024 End: 02-27-2025 CA 125 CA 125 Lab Routine Complex ovarian cyst Expected: 02/28/2024 (Approximate), Expires: 02/27/2025 [facility] Comment on above: Expected: 02/28/2024 (Approximate), Expires: 02/27/2025 Start: 02-28-2024 End: 02-27-2025 Carcinoembryonic Ag [Mass/volume] in Serum or Plasma CEA Lab Routine Complex ovarian cyst Expected: 02/28/2024 (Approximate), Expires: 02/27/2025 [facility] Comment on above: Expected: 02/28/2024 (Approximate), Expires: 02/27/2025 Start: 02-28-2024 End: 02-27-2025 HCG, tumor marker HCG, tumor marker Lab Routine Complex ovarian cyst Expected: 02/28/2024 (Approximate), Expires: 02/27/2025 [facility] Comment on above: Expected: 02/28/2024 (Approximate), Expires: 02/27/2025 Start: 02-28-2024 End: 02-27-2025 Lactate dehydrogenase, isoenzymes Lactate dehydrogenase, isoenzymes Lab Routine Complex ovarian cyst Expected: 02/28/2024 (Approximate), Expires: 02/27/2025 [facility] Work Phone: Comment on above: Expected: 02/28/2024 (Approximate), Expires: 02/27/2025 Start: 02-28-2024 End: 02-27-2025 US Pelvis US Pelvis w/ TV Imaging Routine Pelvic pain in female Complex ovarian cyst Expected: 02/28/2024, Expires: 02/27/2025 [facility] Healthcare Comment on above: Expected: 02/28/2024 , Expires: 02/27/2025 Start: 02-28-2024 End: 02-28-2024 Patient encounter procedure 02/28/2024 11:10 AM EST Office Visit [facility] OB [address] [place] [phone] Zay Blas DO [address] [place] [address] [facility] Start: 02-22-2024 End: 02-22-2024 Patient encounter procedure 02/22/2024 11:15 AM EST Office Visit [facility] [address] [place] [address] Lamont Shay MD [address] [place] [address] [facility] Start: 02-09-2024 End: 02-08-2025 CT Abdomen and Pelvis WO and W contrast IV CT abdomen pelvis w and wo IV contrast Imaging Routine Generalized abdominal pain Intractable nausea and vomiting Expected: 02/09/2024, Expires: 02/08/2025 [facility] Work Phone: Comment on above: Expected: 02/09/2024 , Expires: 02/08/2025 Start: 02-05-2024 End: 02-05-2024 ambulatory 02/05/2024 1:45 PM EST [facility] Neurology Headache [facility] [address] [place] [address] Sagar Barth APRN.CHILD NURSE [address] [place] [address] [facility] Comment on above: [facility] Start: 01-24-2024 End: 01-24-2024 Patient encounter procedure 01/24/2024 3:20 PM EST Office Visit [facility] OB [address] [place] [address] aZy Blas DO [address] [place] [address] [facility] Start: 01-23-2024 End: 01-22-2025 Basic metabolic 1998 panel - Serum or Plasma Basic metabolic panel Lab Routine Generalized edema Expected: 01/23/2024 (Approximate), Expires: 01/22/2025 [facility] Comment on above: Expected: 01/23/2024 (Approximate), Expires: 01/22/2025 Start: 01-23-2024 End: 01-22-2025 CBC W Auto Differential panel - Blood CBC and differential Lab Routine Generalized edema SOB (shortness of breath) on exertion Expected: 01/23/2024 (Approximate), Expires: 01/22/2025 [facility] Healthcare Comment on above: Expected: 01/23/2024 (Approximate), Expires: 01/22/2025 Start: 01-23-2024 End: 01-22-2025 Hepatic function 2000 panel - Serum or Plasma Hepatic function panel Lab Routine Generalized edema SOB (shortness of breath) on exertion Expected: 01/23/2024 (Approximate), Expires: 01/22/2025 [facility] Healthcare Comment on above: Expected: 01/23/2024 (Approximate), Expires: 01/22/2025 Start: 01-23-2024 End: 01-22-2025 Natriuretic peptide B [Mass/volume] in Blood B-type natriuretic peptide Lab Routine Generalized edema Expected: 01/23/2024 (Approximate), Expires: 01/22/2025 [facility] Healthcare Comment on above: Expected: 01/23/2024 (Approximate), Expires: 01/22/2025 Start: 01-23-2024 End: 01-22-2025 XR Chest 2 Views XR chest 2 views Imaging Routine Mild persistent asthma with (acute) exacerbation ([facility]) Generalized edema SOB (shortness of breath) on exertion Expected: 01/23/2024, Expires: 01/22/2025 [facility] Work Phone: Comment on above: Expected: 01/23/2024 , Expires: 01/22/2025 Start: 01-23-2024 End: 01-23-2024 [address] [facility] Comment on above: Arrived Start: 01-22-2024 End: 01-22-2024 Patient encounter procedure 01/22/2024 2:30 PM EST Office Visit Neurology [address] [place] [address] Raiza Morales, UMANG.CHILD NURSE [address] [place] [address] Infusion Day #3 Neurology Comment on above: Infusion Day #3 Start: 01-22-2024 End: 01-22-2024 ambulatory 01/22/2024 2:00 PM EST Infusion Center Neurology [address] [place] [address] Non-DHE Infusion Day #3 Neurology Comment on above: Non-DHE Infusion Day #3 Start: 01-19-2024 End: 01-19-2024 ambulatory 01/19/2024 9:30 AM EST Infusion Center Neurology [address] [place] [address] Non-DHE Infusion Day #2 Neurology Comment on above: Non-DHE Infusion Day #2 Start: 01-09-2024 End: 01-09-2024 Patient encounter procedure [facility] Comment on above: Arrived Start: 01-05-2024 End: 01-05-2024 ambulatory 01/05/2024 1:00 PM EST Infusion Center Neurology [address] [place] [address] [facility] Neu[facility] Comment on above: V[facility]i Start: 12-12-2023 End: 12-12-2023 Patient encounter procedure 12/12/2023 3:45 PM EDT Office Visit [facility] [address] [place] [address] Lamont Shay MD [address] [place] [address] [facility] Start: 12-11-2023 End: 12-11-2023 Patient encounter procedure 12/11/2023 1:00 PM EDT Office Visit [facility] [address] [facility] [place] [address] Zay Blas DO [address] [facility] [address] [place], [place] [phone] Arrived [facility] Comment on above: Arrived Start: 11-15-2023 End: 11-15-2023 Patient encounter procedure 11/15/2023 8:45 AM EDT Office Visit [facility] [address] [place] [address] Lamont Shay MD [address] [place] [phone] Arrived [facility] Comment on above: Arrived Start: 11-06-2023 End: 11-06-2023 Patient encounter procedure 11/06/2023 11:30 AM EDT Office Visit [facility] [address] [facility] [address] [place] [address] Jose Martin Lopez MD [address] [place] [address] [facility] Start: 10-31-2023 End: 10-31-2023 Patient encounter procedure 10/31/2023 2:30 PM EDT Office Visit Neurology [address] [phone] Tyrone Dolan MD, PhD [address] [facility] [address] [place] [address] Seizure Neurology Comment on above: Seizure Start: 10-22-2023 Covid-19 Vaccine ( season) Covid-19 Vaccine ( season) [facility] Start: 10-22-2023 Covid-19 Vaccine ( season) Covid-19 Vaccine () [facility] Start: 10-22-2023 Influenza vaccination C [facility] Start: 10-13-2023 End: 10-13-2023 ambulatory 10/13/2023 1:00 PM EDT Infusion Center Neurology [address] [phone] [facility] Infusion Neurology Comment on above: [facility] Infusion Start: 10-10-2023 End: 10-10-2023 Patient encounter procedure 10/10/2023 9:15 AM EDT Office Visit [facility] [address] [place] [phone] Lamont Shay MD [address] [facility] [place] [address] Arrived [facility] Comment on above: Arrived Start: 09-19-2023 End: 09-19-2023 Patient encounter procedure 09/19/2023 2:30 PM EDT Office Visit Neurology [facility] [address] [place] [address] Sagar Barth APRN.CHILD NURSE [address] [place] [address] Migraines Nerve Block Neurology [facility] Comment on above: Migraines Nerve Bloc k Start: 08-18-2023 End: 08-18-2023 Patient encounter procedure 08/18/2023 9:30 AM EDT Office Visit Neurology [address] [place] [address] Curtis Lepe PA-C [address] [place] [address] NERVE BLOCK Neurology Comment on above: NERVE BLOCK Start: 03-03-2023 [facility]: 02-20-2023 Depression Assessment Depression Ass [facility] Start: 10-29-2022 Adult depression scr eening assessment DEPRESSION SCREENING [facility] Start: 10-21-2022 Covid-19 Vaccine () Covid-19 Vaccine () [facility] Start: 10-21-2022 Influenza vaccination C [facility] Start: 02-20-2022 DEPRESSION ASSESSMENT DEPRESSION ASS [facility] Start: 10-26-2021 End: 10-26-2022 SARS-CoV-2 (COVID-19) RNA [Presence] in Respiratory specimen by SAURABH with probe detection PRE-PROCEDURE & PRE-OPERATIVE COVID Microbiology Routine Seizure-like activity (HCC) Expected: 10/26/2021, Expires: 10/26/2022 [facility] Work Phone: Comment on above: Expected: 10/26/2021 , Expires: 10/26/2022 Start: 10-21-2021 Influenza vaccination B [facility] Start: 02-20-2021 DEPRESSION ASSESSMENT DEPRESSION ASS [facility] Start: 10-21-2020 Influenza vaccination Flu vaccine (# 1) [facility] Work Phone: Start: 11-13-2016 PAP TESTING PAP TESTING [facility] Start: 11-13-2016 Screening for malign ant neoplasm of cervix [facility] Start: 11-13-2014 Urine microalbumin profile [facility] Start: 11-13-2013 Adult BMI Follow Up Plan Adult BMI Follow Up Plan [facility] Start: 11-13-2013 Anxiety Screening Anxiety Screening [facility] Start: 11-13-2013 Depression Screening Depression Scre ening [facility] Start: 11-13-2013 Hepatitis C screening B ON [facility] Start: 11-13-2013 HEPATITIS C SCREENING HEPATITIS C [facility] Start: 11-13-2013 HIV SCREENING HIV SCRE[facility] Start: 11-13-2013 HIV screening HIV Screening [facility] Start: 2011 Screening for Chlamy rose trachomatis Chlamydia [facility] Start: 11-13-2010 HIV screening HIV screen [facility] Start: 11-13-2009 PEDS TO ADULT TRANSI TION ANNUAL ASSESSMENT PEDS TO ADULT TRANSITION ANNUAL ASSESSMENT [facility] Start: 2007 Adult depression scr [facility] assessment DEPRESSION SCREENING [facility] Start: 2007 COVID-19 Vaccine (1) COVID-19 Vaccin e (1) [employer] Phone: Start: 2007 Depression Screen Depression Screen [facility] Start: 2007 PEDS TO ADULT TRANSI TION INITIAL DISCUSSION PEDS TO ADULT TRANSITION INITIAL DISCUSSION [facility] Start: 11-13-2006 HPV VACCINE (1 - 2-d ose series) HPV VACCINE (1 - 2-dose series) [facility] Start: 11-13-2004 HPV VACCINE (1 - 2-d ose series) HPV VACCINE (1 - 2-dose series) [facility] Start: 05-13-1996 COVID-19 Vaccine (#1) COVID-19 Vacci ne (#1) [facility] Start: 1995 HEPATITIS B (1 of 3 - 3-dose series) HEPATITIS B (1 of 3 - 3-dose series) [facility] Start: 1995 Hepatitis B Vaccine (1 of 3 - 3-dose series) Hepatitis B Vaccine (1 of 3 - 3-dose series) [facility] Start: 1995 Hepatitis C screening Hepatitis C [facility] [employer] Phone: End: 03-20-2025 Zkdrg-5-Jojkqskbzgv Phenotype Jbmdg-0-Omffiqpeqbg Phenotype Lab Routine Moderate asthma with acute exacerbation, unspecified whether persistent 1 Occurrences starting 03/20/2024 until 03/20/2025 [facility] Comment on above: 1 Occurrences starti ng 03/20/2024 until 03/20/2025 Mexon-5-Ynbxrnkalip Phenotype Fgncq-3-Korsvjretpa Phenotype Lab Routine Moderate asthma with acute exacerbation, unspecified whether persistent 03/20/2024 1:12 PM [employer] Bacteria identified in Blood by Aerobe culture [employer] Work Phone: Bacteria identified in Urine by Culture URINE CULTURE, ROUTINE Lab Routine 01/31/2024 11:57 AM EST [facility] Bacteria identified in Wound by Aerobe culture Wound culture superficial includes gram stain Microbiology Routine 04/08/2024 8:25 PM EST [employer] Work Phone: End: 10-26-2021 Basic Metabolic Panel w/ Reflex to MG Basic Metabolic Panel w/ Reflex to MG Lab Routine Daily for 7 Days starting 10/20/2021 until 10/26/2021 [employer] Phone: Comment on above: Daily for 7 Days sta rting 10/20/2021 until 10/26/2021 End: 10-26-2021 CBC W Auto Differential panel - Blood CBC with Auto Differential Lab Routine Daily for 7 Days starting 10/20/2021 until 10/26/2021, 1 completed [employer] Phone: Comment on above: Daily for 7 Days sta rting 10/20/2021 until 10/26/2021, 1 completed End: 05-02-2025 CBC W Auto Differential panel - Blood CBC with auto diff Lab Routine Postoperative infection, unspecified type, subsequent encounter 1 Occurrences starting 05/02/2024 until 05/02/2025 [employer] Phone: Comment on above: 1 Occurrences starti ng 05/02/2024 until 05/02/2025 End: 05-02-2025 Comprehensive metabolic 2000 panel - Serum or Plasma Comprehensive metabolic panel Lab Routine Postoperative infection, unspecified type, subsequent encounter 1 Occurrences starting 05/02/2024 until 05/02/2025 [facility] Comment on above: 1 Occurrences starti ng 05/02/2024 until 05/02/2025 Cytology Cervical or vaginal smear or scraping study Pap Smear Pathology and Cytology Routine Well woman exam with routine gynecological exam Ordered: 04/16/2024 [employer] Work Phone: Comment on above: Ordered: 04/16/2024 End: 03-19-2025 ECG 12 lead ECG 12 lead ECG Routine Bilateral ovarian cysts Preop testing 1 Occurrences starting 03/19/2024 until 03/19/2025 [employer] Work Phone: Comment on above: 1 Occurrences starti ng 03/19/2024 until 03/19/2025 EKG 12 Lead EKG 12 Lead ECG Routine 10/19/2021 5:55 PM EDT [employer] Work Phone: End: 10-29-2022 EPIL AMBULATORY EEG EPIL AMBULATORY EEG NEUROLOGY Routine Psychogenic nonepileptic seizure Spells of trembling 1 Occurrences starting 10/29/2021 until 10/29/2022 [facility] Work Phone: Comment on above: 1 Occurrences starti ng 10/29/2021 until 10/29/2022 End: 10-26-2022 EPIL EEG LEAD PLACEMENT EPIL EEG LEAD PLACEMENT NEUROLOGY Routine Seizure-like activity (HCC) 1 Occurrences starting 10/26/2021 until 10/26/2022 [facility] Work Phone: Comment on above: 1 Occurrences starti ng 10/26/2021 until 10/26/2022 End: 11-08-2022 EPIL EEG ROUTINE EPIL EEG ROUTINE NEUROLOGY Routine Seizure-like activity (HCC) 1 Occurrences starting 11/08/2021 until 11/08/2022 [facility] Work Phone: Comment on above: 1 Occurrences starti ng 11/08/2021 until 11/08/2022 EPIL VEEG ADMIT TO EMU/PMU EPIL VEEG ADMIT TO EMU/PMU NEUROLOGY Routine Seizure-like activity (HCC) Ordered: 10/26/2021 [facility] Work Phone: Comment on above: Ordered: 10/26/2021 Oxygen therapy [[facility] Data Set] Initiate Oxygen Therapy Protocol Respiratory Care Routine As Needed until discontinued starting 10/19/2021 [employer] Work Phone: Comment on above: As Needed until disc ontinued starting 10/19/2021 End: 03-19-2025 Type and screen(includes indirect ady) Type and screen(includes indirect ady) Blood Bank Routine Bilateral ovarian cysts Preop testing 1 Occurrences starting 03/19/2024 until 03/19/2025 [facility] Comment on above: 1 Occurrences starti ng 03/19/2024 until 03/19/2025 [facility] Immunizations Immunization Date Immunization Notes Care Provider Fa [facility] 12-08-2017 Influenza, injectabl e, Madin [place] Canine Kidney, preservative free, quadrivalent Mundo Martinez MD Work Phone: [facility] 12-08-2017 influenza virus vacc ine, unspecified formulation Suzan Driver APRN.CNP Work Phone: [facility] 12-31-2015 influenza, seasonal, injectable, preservative free Mundo Martinez MD Work Phone: [facility] 09-21-2015 tetanus toxoid, redu ailyn diphtheria toxoid, and acellular pertussis vaccine, adsorbed Mundo Martinez MD Work Phone: [facility] 11-27-2014 influenza, seasonal, injectable, preservative free Mundo Martinez MD Work Phone: [facility] 10-23-2012 influenza, seasonal, injectable, preservative free Mundo Martinez MD Work Phone: [facility] 05-22-2012 human papilloma viru s vaccine, quadrivalent Mundo Martinez MD Work Phone: [facility] 01-20-2012 human papilloma viru s vaccine, quadrivalent Mundo Martinez MD Work Phone: [facility] 11-15-2011 human papilloma viru s vaccine, quadrivalent Mundo Martinez MD Work Phone: [facility] 11-15-2011 influenza, seasonal, injectable, preservative free Mundo Martinez MD Work Phone: [facility] 11-15-2011 meningococcal polysaccharide (groups A, C, Y and W-135) diphtheria toxoid conjugate vaccine (MCV4P) Mundo Martinez MD Work Phone: [facility] 11-15-2011 varicella virus vaccine Eloina Martinez MD Work Phone: [facility] 10-25-2002 hepatitis B vaccine, pediatric or pediatric/adolescent dosage Mundo Martinez MD Work Phone: [facility] 10-25-2002 varicella virus vaccine Eloina Martinez MD Work Phone: [facility] 09-07-2001 diphtheria, tetanus toxoids and acellular pertussis vaccine Mundo Martinez MD Work Phone: [facility] 09-07-2001 measles, mumps and rubella virus vaccine Mundo Martinez MD Work Phone: [facility] 09-07-2001 poliovirus vaccine, inactivated Mundo Martinez MD Work Phone: [facility] 03-05-1997 diphtheria, tetanus toxoids and acellular pertussis vaccine, Haemophilus influenzae type b conjugate, and poliovirus vaccine, inactivated ([id number]) Mundo Martinez MD Work Phone: [facility] 03-05-1997 measles, mumps and rubella virus vaccine Mundo Martinez MD Work Phone: [facility] 07-05-1996 diphtheria, tetanus toxoids and acellular pertussis vaccine, Haemophilus influenzae type b conjugate, and poliovirus vaccine, inactivated ([id number]) Mundo Martinez MD Work Phone: [facility] 05-06-1996 diphtheria, tetanus toxoids and acellular pertussis vaccine, Haemophilus influenzae type b conjugate, and poliovirus vaccine, inactivated ([id number]) Mundo Martinez MD Work Phone: [facility] 05-06-1996 hepatitis B vaccine, pediatric or pediatric/adolescent dosage Mundo Martinez MD Work Phone: [facility] 01-15-1996 diphtheria, tetanus toxoids and acellular pertussis vaccine, Haemophilus influenzae type b conjugate, and poliovirus vaccine, inactivated ([id number]) Mundo Martinez MD Work Phone: [facility] 1995 hepatitis B vaccine, pediatric or pediatric/adolescent dosage Mundo Martinez MD Work Phone: [facility] 1995 hepatitis B vaccine, pediatric or pediatric/adolescent dosage Mundo Martinez MD Work Phone: [facility] Payers Date Payer Category Payer Medicaid (Managed Care) [employer] [id number] 2022 Self-pay 2017 Medicaid [employer] [id number] 2017-Present Medicaid [id number] 2016 Medicaid O [employer] [id number] 2013 Medicaid [id number]. [id number] 2011 Unknown 1995 Unknown [id number] 2.16.840.1.418161.3.579.2. 173 1995 Unknown [id number] 2.16.840.1.079131.3.579.2. 175 1995 Unknown [id number] 2.16.840.1.152013.3.579.2. 727 1995 Unknown [id number] 2.16.840.1.258153.3.579.2. 593 1995 Unknown [id number] 2.16.840.1.893050.3.579.2. 593 1995 Unknown [id number] 2.16.840.1.607787.3.579.2. 593 1995 Unknown [id number] 2.16.840.1.434186.3.579.2. 593 1995 Unknown [id number] 2.16.840.1.997414.3.579.2. 593 1995 Unknown [id number] 2.16.840.1.838907.3.579.2. 593 1995 Unknown [id number] 2.16.840.1.360520.3.579.2. 593 1995 Unknown [id number] 2.16.840.1.250184.3.579.2. 593 1995 Unknown [id number] 2.16.840.1.330396.3.579.2. 593 1995 Unknown [id number] 2.16.840.1.208580.3.579.2. 593 1995 Unknown [id number] 2.16.840.1.948733.3.579.2. 593 1995 Unknown [id number] 2.16.840.1.950799.3.579.2. 593 1995 Unknown [id number] 2.16.840.1.565573.3.579.2. 593 1995 Unknown [id number] 2.16.840.1.474439.3.579.2. 593 1995 Unknown [id number] 2.16.840.1.998426.3.579.2. 593 1995 Unknown [id number] 2.16.840.1.283803.3.579.2. 593 1995 Unknown [id number] 2.16.840.1.440174.3.579.2. 593 1995 Unknown [id number] 2.16.840.1.002257.3.579.2. 593 1995 Unknown [id number] 2.16.840.1.282903.3.579.2. 593 1995 Unknown [id number] 2.16.840.1.216004.3.579.2. 593 1995 Unknown [id number] 2.16.840.1.771285.3.579.2. 593 1995 Unknown [id number] 2.16.840.1.393855.3.579.2. 593 1995 Unknown [id number] 2.16.840.1.488209.3.579.2. 1259 1995 Unknown [id number] 2.16.840.1.952013.3.579.2. 1258 1995 Unknown [id number] 2.16.840.1.005806.3.579.2. 1258 1995 Unknown [id number] 2.16.840.1.070791.3.579.2. 1258 1995 Unknown [id number] 2.16.840.1.621313.3.579.2. 1258 1995 Unknown [id number] 2.16.840.1.569029.3.579.2. 1258 1995 Unknown [id number] 2.16.840.1.132342.3.579.2. 1258 1995 Unknown [id number] 2.16840.1.526712.3.579.2. 1258 1995 Unknown [id number] 2.16.840.1.789743.3.579.2. 1258 1995 Unknown [id number] 2.16.840.1.373389.3.579.2. 1258 1995 Unknown [id number] 2.16.840.1.092242.3.579.2. 1258 1995 Unknown [id number] 2.16840.1.889177.3.579.2. 1258 1995 Unknown [id number] 2.16840.1.073801.3.579.2. 9 1959 Unknown [id number] 1.2.840.156926.1.13.239.2. 7.3.752202.315 Unknown [id number] 2.16840.1.084939.3.579.2. 531 Social History Date Type Detail Facility Tobacco smoking stat [facility] Unknown if ever smoked [facility] Start: 1995 Sex Assigned At Not on file [facility] Start: 12-24-2020 End: 10-12-2022 Tobacco smoking status [facility] Never smoker [employer] Phone: Start: 12-24-2020 End: 10-12-2022 Tobacco use and exposure Never used [employer] Start: 12-24-2020 End: 04-25-2024 Alcohol intake Ex-drinker (finding) [employer] Phone: Start: 10-16-2021 End: 07-28-2022 Exposure to SARS-CoV-2 (event) Not sure [employer] Tobacco smoking stat [facility] Tobacco smoking consumption unknown [facility] Work Phone: Start: 06-23-2022 End: 08-08-2022 History of Social function [facility] Start: 06-23-2022 End: 08-08-2022 Patient Health Questionnaire 2 item (PHQ-2) [Reported] [facility] Adult Depression Screening Assessment 2 [facility] Start: 11-15-2023 End: 04-16-2024 Alcoholic beverage intake Lifetime non-drinker (finding) [facility] Start: 07-31-2022 Alcohol Comment Caffeine intak e: >4 cups per day [facility] Do you belong to any clubs or organizations such as religious groups, unions, fraternal or athletic groups, or [...] [facility] Start: 09-25-2014 Sex Female (finding) [facility] How often to you hav e a drink containing alcohol? Monthly or less [facility] How many standard drinks containing alcohol do you have on a typical day? 1 or 2 [facility] Start: 04-08-2024 Alcohol Comment social [facility] NEGATED: Highlighted rowStart: RENETTA History of tobacco use Passive smoker [facility] Goals Date Patient Goal Desired Activity /State Personal health goal Comment on above: Formatting of this n ote might be different from the original. Evaluation of progress towards goal: Patient stated goal is to return home with [facility] for assistance with wound care Functional Status Date Assessment Result Facility 04-01-2022 Are you deaf, or do you have serious difficulty hearing No 04/01/2022 6:20 PM Katie Florez RN No [facility] 04-01-2022 Are you blind, or do you have serious difficulty seeing, even when wearing glasses No 04/01/2022 6:20 PM Katie Florez, PRATIBHA No [facility] 04-01-2022 Do you have serious difficulty walking or climbing stairs No 04/01/2022 6:20 PM Katie Florez, PRATIBHA No [facility] 04-01-2022 Do you have difficul ty dressing or bathing No 04/01/2022 6:20 PM Katie Florez, PRATIBHA No [facility] 04-01-2022 Because of a physica l, mental, or emotional condition, do you have difficulty doing errands alone such as visiting a physician's office or shopping No 04/01/2022 6:20 PM Katie Florez, PRATIBHA No [facility] Mental Status Date Assessment Result Facility 04-01-2022 Because of a physica l, mental, or emotional condition, do you have serious difficulty concentrating, remembering, or making decisions No 04/01/2022 6:20 PM Katie Florez, PRATIBHA No [facility] Clinical Notes 12-24-2020 to 05-02-2024 Claudia Maynard RN - 05/02/2024 10:31 AM EDTTelephone Encounter - Caterina Smith CMA - 04/30/2024 8:41 AM EDTTelephone Encounter - Caterina Smith CMA - 04/30/2024 8:41 AM EDTPatient Instructions Note Date & Type Note Facility 05-02-2024 History of Present illness Narrative Patient arrived to infusion suite rating pain 9/10 with severe nausea and no dizziness. RN noticed last vyepti infusion, patient developed itching during infusion which resolved with administration of IV benadryl. POD aware and agreeable to continue with vyepti infusion today. Patient educated on medications to be administered per therapy plan and verbally agreed to proceed as ordered. Patient began itching 20 minutes into vyepti infusion. Vyepti stopped. NS administered with 50mg benadryl per hypersensitivity orders. Patient denies SOB, throat tightness, chest tightness. Patient observed. RN added Vyepti to allergy list. RN educated patient that a follow up visit is important to discuss current medications and consider whether Vyepti is an appropriate medication to continue, considering the past 3 of 3 vyepti infusions, patient has had similar reactions. VS remained stable, 129/72, 93bpm. Itchiness completely resolved before discharge. Zofran given for nausea, toradol given for pain. POD aware and agreeable to plan. 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 documented in this encounter [facility] 04-30-2024 Miscellaneous Notes Attempted to contact patient regarding refill sent in. No answer, left voicemail. documented in this encounter [facility] 04-30-2024 Telephone encounter Note Attempted to contact patient regarding refill sent in. No answer, left voicemail. [facility] 04-29-2024 History of Present illness Narrative Patient called asking for refill of oxycodone for post op pain. Upon reviewing her OARRS it would appear she had Tylenol III refilled last week at [facility] [place] [place]. Discussed this with patient who states she never picked this medication. Reminded patient that in previous documented discussion we instructed her to no longer take Tylenol III as she was on oxycodone for post op pain, prescribed by our team. Patient states she never picked up this prescription. In her message she explained that she is taking the pain medication less often. Over phone states she is taking oxycodone every 4 hours as stated in prior visits. Explained that medications do not show up on OARRS report unless the prescription is filled and picked up. Patient insists that prescription was never picked up and she is not taking it. She states she is still very sore from her surgery and tylenol not helpful. We discussed only taking oxycodone and ibuprofen, alternating and also discussed a plan for tapering off narcotic completely. Explained that I would refill her oxycodone one more time, then it is expected that she will only be taking ibuprofen. She is not to accept narcotics from other prescribers for her post op pain. She expressed understanding. [facility] [place] after completing phone call with patient. Pharmacy staff confirmed prescription for Tylenol III was picked up on 04/22/24 with a receipt available to view. MARY Cintron 04/29/24 1440 documented in this encounter [facility] 04-29-2024 History of Present illness Narrative The OARRS/MAPPS database was reviewed today and found to be appropriate. No indication of medication diversion, or non compliance. SARAHI Champion 04/29/24 0918 documented in this encounter [facility] 04-25-2024 History of Present illness Narrative Images from the original note were not included. [address] [place] [id number] Patient: April Nicholson Date of : 1995 Encounter Date: 04/25/2024 SUBJECTIVE: HISTORY OF PRESENT ILLNESS: Chief Complaint: Chief Complaint Patient presents with [facility] Patient ID: April is a 28 y.o. female New patient here to establish new primary care provider Past medical history notable for bipolar type 1 disorder, migraine headaches, see order, asthma. Surgical history is notable for appendectomy, , cholecystectomy, recent hysterectomy. Patient follows: Followed Oncology for Right ovarian mass: is status post BSO on 03/28/2024 Neurology for seizure disorder: On Lamictal and Valium. Pulmonolgy - Dewey, Asthma, on Trelegy Psychiatry - Dr. Scanlon - arcelia Has lost a significant amount of weight from 290's about 4 years ago, no won 232lbs. Had extensive history of Nausea and emesis with inability to tolerate PO intake Completed Gastroenterology for scope which was unremarkable. Wanted CT scan, but was denied by insurance. Then follows Dr. Thakur - had [facility] with BSO Unfortunately while caring for special needs daughter who was seizing, she had wound dehiscence. Fortunately her recent laparoscopic BSO on 03/28/2024 notable for normal pathology. However has been complicated by wound healing infection. She has had fevers required IV antibiotics in the hospital and oral antibiotics with ongoing concerns for wound dehiscence. She continues to report some serosanguineous drainage from the incision site. Appears to have been exacerbated by recent URI and ongoing cough which was straining her location. Was using oxycodone and ibuprofen for pain control. Does not work Has 4 special needs children Does require time recorder attention Previously had viapti infusion for migraine headaches Is on valium and lamictal for non epileptiform seizure. Has episodes of zoning out. No history of Sleep Study Support system is fragmented -parents -Restorationist -2 fathers of childrens - not interested in being involved. PAST MEDICAL HISTORY: Past Medical History: Diagnosis Date Anxiety Asthma BV (bacterial vaginosis) Depression Migraine 15 days out of the month-receives an infusion every 3 months MRSA (methicillin resistant Staphylococcus aureus) In a buttocks wound in 8th grade Ovarian cyst, bilateral 03/25/2024 Prolonged emergence from general anesthesia Seizure ([facility]) Last one 03-11-2024 PAST SURGICAL HISTORY: Past Surgical History: Procedure Laterality Date APPENDECTOMY SECTION CHOLECYSTECTOMY [facility] LYSIS OF ADHESIONS N/A 03/28/2024 Performed by Mundo Martinez MD at [facility] DV5 LYSIS OF ADHESIONS N/A 03/28/2024 Performed by Jesse Sultana MD at [facility] DV5 SALPINGO OOPHORECTOMY/FROZEN SECTION Bilateral 03/28/2024 Performed by Mundo Martinez MD at [facility] DILATION AND CURETTAGE OF UTERUS PARTIAL HYSTERECTOMY 10/01/2021 TUBAL LIGATION FAMILY HISTORY: Family History Problem Relation Age of Onset Anesthesia problems Mother Prolonged emergence Cystic fibrosis Mother Anesthesia problems Father prolonged emergence Cystic fibrosis Father Ovarian cancer Maternal Aunt SOCIAL HISTORY: Social History Socioeconomic History Marital status: Single Spouse name: Not on file Number of [...] at all Food Insecurity: No Food Insecurity (04/25/2024) Hunger Screening Food Insecurity - Worry: Never True Food Insecurity - Inability: Never True Transportation Needs: No Transportation Needs (04/08/2024) PRAPARE - Transportation Lack of Transportation (Medical): No Lack of Transportation (Non-Medical): No Physical Activity: Insufficiently Active (01/23/2024) Received from [facility] Exercise Vital Sign Days of Exercise per Week: 7 days Minutes of Exercise per Session: 10 min Stress: Stress Concern Present (01/23/2024) Received from [facility] [place] - Occupational Stress Questionnaire Feeling of Stress : Rather much Social Connections: Socially Integrated (01/23/2024) Received from [facility] Social Connection and Isolation Panel [NHANES] Frequency of Communication with Friends and Family: More than three times a week Frequency of Social Gatherings with Friends and Family: Twice a week Attends Worship Services: More than 4 times per year [...] Risk (04/08/2024) Housing Instability Housing Instability: No ALLERGY: Allergies Allergen Reactions Bee Venom Protein (Honey [...] [Metoclopramide Hcl] Itching and Anxiety No rash MEDICATIONS Current Outpatient Medications Medication Sig Dispense Refill acetaminophen (TYLENOL EXTRA STRENGTH) 500 mg tablet Take 2 tablets (1,000 mg total) by mouth every 6 (six) hours as needed for pain. 30 tablet 2 albuterol (PROVENTIL,VENTOLIN) 2.5 mg /3 mL (0.083 %) nebulizer solution Inhale 3 mL (2.5 mg total) by nebulization 4 (four) times a day as needed for wheezing. 360 mL 10 albuterol (VENTOLIN HFA) 90 mcg/actuation inhaler INHALE TWO PUFFS BY MOUTH EVERY 4 HOURS NEEDED 18 g 1 cetirizine (ZyrTEC) 10 mg tablet Take 1 tablet (10 mg total) by mouth in the morning. 30 tablet 0 diazePAM (VALIUM) 10 mg tablet Take 0.5 tablets (5 mg total) by mouth in the morning and at bedtime. kqhlartecav-idwzvoihy-khrqpxge (TRELEGY ELLIPTA) 200-62.5-25 mcg blister with device Inhale 1 puff in the morning. 60 each 11 ibuprofen (MOTRIN) 800 mg tablet Take 1 tablet (800 mg total) by mouth 3 (three) times a day. 21 tablet 0 lamoTRIgine (LaMICtal) 200 mg tablet Take 1 tablet (200 mg total) by mouth in the morning and 1 tablet (200 mg total) before bedtime. lidocaine (XYLOCAINE) 5 % ointment Apply 1 Application topically as needed for pain. 35.44 g 0 lithium carbonate 300 mg tablet Take 2 tablets (600 mg total) by mouth nightly. traZODone (DESYREL) 300 MG tablet Take 1 tablet (300 mg total) by mouth nightly. baclofen (LIORESAL) 10 mg tablet Take 1 tablet (10 mg total) by mouth nightly. 30 tablet 3 ketoconazole (NIZORAL) 2 % shampoo Apply 1 Application topically 2 (two) times a week. Apply to damp skin, lather, leave on 5 minutes, and rinse 120 mL 0 Current Facility-Administered Medications Medication Dose Route Frequency Provider Last Rate Last Admin diazePAM (VALIUM) tablet 5 mg 5 mg oral BID George Pisano MD PHYSICAL EXAMINATION: Vitals: 04/25/24 1306 BP: 126/78 BP Site: Left Arm BP Postition: Sitting Pulse: 91 Temp: 36.5 C (97.7 F) TempSrc: Oral SpO2: 98% Weight: 105.6 kg (232 lb 12.8 oz) Height: 154.9 cm (5' 0.98 ) Physical Exam Vitals reviewed. Constitutional: General: She is not in acute distress. Appearance: Normal appearance. She is obese. Eyes: Extraocular Movements: Extraocular movements intact. Pupils: Pupils are equal, round, and reactive to light. Cardiovascular: Rate and Rhythm: Normal rate and regular rhythm. Pulses: Normal pulses. Heart sounds: Normal heart sounds. Pulmonary: Effort: Pulmonary effort is normal. No respiratory distress. Breath sounds: Normal breath sounds. No wheezing or rhonchi. Abdominal: General: Bowel sounds are normal. There is no distension. Palpations: Abdomen is soft. There is no mass. Tenderness: There is no abdominal tenderness. There is no right CVA tenderness, left CVA tenderness or guarding. Musculoskeletal: Cervical back: Normal range of motion and neck supple. Neurological: Mental Status: She is alert and oriented to person, place, and time. Mental status is at baseline. Labs, imaging, and records: I have personally obtained and reviewed the relevant labs/imaging. ASSESSMENT/PLAN: April was seen today for establish care. Diagnoses and all orders for this visit: Muscle spasm - baclofen (LIORESAL) 10 mg tablet; Take 1 tablet (10 mg total) by mouth nightly. Fatigue due to depression Nausea and vomiting, unspecified vomiting type Mild persistent asthma without status asthmaticus without complication Psychogenic nonepileptic seizure Other orders - ketoconazole (NIZORAL) 2 % shampoo; Apply 1 Application topically 2 (two) times a week. Apply to damp skin, lather, leave on 5 minutes, and rinse 28 y female here today to establish with new primary care provider Has a very complicated past medical history Recent laparoscopic BSO incisions are healing well after being complicated by dehiscence and infection Seborrheic dermatitis ketoconazole shampoo refilled Baclofen muscle relaxer refilled q.h.s. Patient's symptoms and history is are highly consistent with chronic fatigue syndrome however patient may have an underlying sleep disorder and were not getting good quality sleep secondary to her childcare responsibilities. Suspect this is at the root of most of her concerns. Upon review of medical chart she was relatively normal metabolic labs, recent CT abdomen which was also largely unremarkable. CORINE GOLD MD Family Medicine Physician [facility] Family Medicine / [facility] 04/25/24 This note was completed with voice recognition software. The document was reviewed for errors however some may still be present. Please do not hesitate to contact/Epic msg the author to verify any questions/concerns. documented in this encounter [facility] 04-24-2024 History of Present illness Narrative Images from the original note were not included. [employer] notified. Spoke with Leonie. MARY Cintron RN Up to twice daily, thanks! Previous Messages ----- Message ----- From: Alice Wright RN Sent: 04/24/2024 2:17 PM EST To: MARY Cintron [facility] called for clarification on the lidocaine cream. How many times a day can she the cream? Please advise. Thank you, Rubi documented in this encounter [facility] 04-24-2024 History of Present illness Narrative Subjective: April Nicholson is a 28 y.o. female who is s/p a laparoscopic BSO, FANNY on 03/28/24. Pathology: benign She unfortunately was admitted to [facility] on 04/08/24 after experiencing high fevers despite being on antibiotics. The patient stated that she completed a 7-day course of clindamycin post-operatively. One day prior to presentation to the ED, the patient had been evaluated at [facility] and was given 1 dose of bactrim [...] movement during inpatient stay. Today she reports pain and drainage from the umbilical incision. She states it is hard to keep any packing in place now. She had an URI over the last week and states she was coughing and straining and feels she opened the incision further. She also reports burning sensation around the left upper port site which is closed. She is taking oxycodone and ibuprofen alternating every 4-6 hours. Patient was originally a consultation from Dr. [...] History: Procedure Laterality Date APPENDECTOMY SECTION CHOLECYSTECTOMY [facility] LYSIS OF ADHESIONS N/A 03/28/2024 Performed by Mundo Martinez MD at [place] [id number] LYSIS OF ADHESIONS N/A 03/28/2024 Performed by Jesse Sultana MD at [facility] SALPINGO OOPHORECTOMY/FROZEN SECTION Bilateral 03/28/2024 Performed by Mundo Martinez MD at [facility] DILATION AND CURETTAGE OF UTERUS PARTIAL HYSTERECTOMY 10/01/2021 TUBAL LIGATION Past Medical History: Diagnosis Date Anxiety Asthma BV (bacterial vaginosis) Depression Migraine 15 days out of the month-receives an infusion every 3 months MRSA (methicillin resistant Staphylococcus aureus) In a buttocks wound in 8th grade Ovarian cyst, bilateral 03/25/2024 Prolonged emergence from general anesthesia Seizure ([facility]) Last one 03-11-2024 Family History Problem Relation Age of Onset [...] Physical Activity: Insufficiently Active (01/23/2024) Received from [facility] Exercise Vital Sign Days of Exercise per Week: 7 days Minutes of Exercise per Session: 10 min Stress: Stress Concern Present (01/23/2024) Received from [facility] [employer] - Occupational Stress Questionnaire Feeling of Stress : Rather much Social Connections: Socially Integrated (01/23/2024) Received from [facility] Social Connection and Isolation Panel [NHANES] Frequency of Communication with Friends and Family: More than three times a week Frequency of Social Gatherings with Friends and Family: Twice a week Attends Worship Services: More than 4 times per year [...] Pertinent items are noted in HPI. Objective: BP 124/79 Pulse 99 Temp 36.6 C (97.9 F) (Oral) Wt 107 kg (235 lb 12.8 oz) LMP (LMP Unknown) SpO2 96% BMI 44.58 kg/m ECO- Symptomatic; in bed <50% of the day General appearance: alert, appears stated age and cooperative Head: Normocephalic, without obvious abnormality, atraumatic Lungs: clear to auscultation bilaterally Heart: regular rate and rhythm, S1, S2 normal, no murmur, click, rub or gallop Abdomen: soft, nontender, incisions c/d/I, dre-umbilical incision is open from I&D, measures about 1x1 x 0.5 cm - site irrigated. healthy granulation tissue without evidence of infection [...] anomaly not found LOC (loss of consciousness) ([facility]) Migraine with aura and without status migrainosus, not intractable Bilateral occipital neuralgia Asthma without status asthmaticus Anxiety Depressive disorder Seizure-like activity ([facility]) Simple partial seizure disorder ([facility]) Psychogenic nonepileptic seizure Acute cough S/P bilateral salpingo-oophorectomy Abdominal wall cellulitis Postoperative surgical complication involving genitourinary system associated with genitourinary procedure Plan: Post op care - peritonitis/abscess post operatively. She has completed abx and wound no longer requires packing. Wound bed is healthy. Encouraged her to keep the area clean and dry, covered with a light dressing. Left upper port site is healing well. Lidocaine ointment sent to pharmacy for likely nerve related pain. RTC in 1-2 weeks. Reviewed pathology which was benign. She will resume well woman care with Dr. Blas following post op care. Post op pain: Currently taking oxycodone 5mg every 4-6 hours, alternating with ibuprofen. Continues to discuss medication safety and potential side effects. Menopausal symptoms: Currently on estradiol 0.05 mg patches twice weekly. *The patient has a documented plan of care to address pain. All questions were answered to the patient's satisfaction. She is agreeable to this plan of care. *This note was completed using a voice head of human resources system. Every effort was made to ensure accuracy. However, inadvertent computerized head of human resources errors may be present. .Total time spent was 35 minutes: Preparing to see the patient (e.g., review of tests) Performing a medically appropriate examination and/or evaluation Counseling and educating the patient/family/caregiver Ordering medications, tests, or procedures Documenting clinical information in the electronic or other health record Care coordination (not separately reported) Svetlana Ye PA-C, RD, IF MARY Cintron 04/24/24 1228 documented in this encounter [facility] 04-22-2024 Telephone encounter Note Calls were returned to patient. Patient is scheduled for vyepti [facility] 04-22-2024 Miscellaneous Notes Calls were returned to patient. Patient is scheduled for vyepti documented in this encounter [facility] 04-16-2024 History of Present illness Narrative Reason [...] aura without status migrainosus, not intractable (CMS/HCC) 01/24/2023 Generalized anxiety disorder (CMS/HCC) 01/24/2023 Persistent disorder of initiating or maintaining sleep 01/24/2023 Mild persistent asthma (CMS/HCC) 01/24/2023 Polycystic ovaries 01/24/2023 Psychogenic nonepileptic seizure ([facility]) 01/24/2023 Class 3 severe obesity due to excess calories without serious comorbidity with body mass index (BMI) of 50.0 to 59.9 in adult ([facility]) 03/21/2023 Mild persistent asthma with (acute) exacerbation ([facility]) 10/10/2023 Fatigue 01/01/2024 Encounter for long-term [...] Acute exacerbation of asthma with allergic rhinitis ([facility]) Allergies Asthma ([facility]) At low risk for fall Bipolar affective, mixed (HCC) ([facility]) Change in blood pressure Cholecystitis 2008 Depressive disorder ([facility]) OMID (generalized anxiety disorder) ([facility]) History of hysterectomy 10/01/2021 Insomnia, persistent Migraines ([facility]) Mild persistent asthma without complication ([facility]) Morbid obesity with BMI of 40.0-44.9, adult ([facility]) PCOS (polycystic ovarian syndrome) Right otitis media Seizures ([facility]) HISTORY PAST MEDICAL HISTORY SOCIAL HISTORY Past Medical History: Diagnosis Date Acute exacerbation of asthma with allergic rhinitis ([facility]) Allergies Asthma ([facility]) At low risk for fall Bipolar affective, mixed (HCC) ([facility]) Change in blood pressure high and low Cholecystitis 2008 Chronic migraine without aura without status migrainosus, not intractable ([facility]) Depressive disorder ([facility]) OMID (generalized anxiety disorder) ([facility]) History of hysterectomy 10/01/2021 Insomnia, persistent Migraines ([facility]) Mild persistent asthma without complication ([facility]) Morbid obesity with BMI of 40.0-44.9, adult ([facility]) PCOS (polycystic ovarian syndrome) Psychogenic nonepileptic seizure ([facility]) Right otitis media Seizures ([facility]) stressed induced Social History Tobacco Use [...] nursing note reviewed. Exam conducted with a director of web marketing present. Vitals: Estimated body mass index is [...] Zay Blas DO documented in this encounter [facility] 04-15-2024 History of Present illness Narrative Subjective: April Nicholson is a 28 y.o. female who is s/p a laparoscopic BSO, FANNY on 03/28/24. Pathology: benign She unfortunately was admitted to [facility] on 04/08/24 after experiencing high fevers despite being on antibiotics. The patient stated that she completed a 7-day course of clindamycin post-operatively. One day prior to presentation to the ED, the patient had been evaluated at [facility] and was given 1 dose of bactrim [...] History: Procedure Laterality Date APPENDECTOMY SECTION CHOLECYSTECTOMY [facility] LYSIS OF ADHESIONS N/A 03/28/2024 Performed by Mundo Martinez MD at [facility] LYSIS OF ADHESIONS N/A 03/28/2024 Performed by Jesse Sultana MD at [facility] SALPINGO OOPHORECTOMY/FROZEN SECTION Bilateral 03/28/2024 Performed by Mundo Martinez MD at [facility] DILATION AND CURETTAGE OF UTERUS PARTIAL HYSTERECTOMY 10/01/2021 TUBAL LIGATION Past Medical History: Diagnosis Date Anxiety Asthma BV (bacterial vaginosis) Depression Migraine 15 days out of the month-receives an infusion every 3 months MRSA (methicillin resistant Staphylococcus aureus) In a buttocks wound in 8th grade Ovarian cyst, bilateral 03/25/2024 Prolonged emergence from general anesthesia Seizure (CMS-HCC) Last one 03-11-2024 Family History Problem Relation Age of Onset [...] Physical Activity: Insufficiently Active (01/23/2024) Received from [facility] Exercise Vital Sign Days of Exercise per Week: 7 days Minutes of Exercise per Session: 10 min Stress: Stress Concern Present (01/23/2024) Received from [facility] [employer] - Occupational Stress Questionnaire Feeling of Stress : Rather much Social Connections: Socially Integrated (01/23/2024) Received from [facility] Social Connection and Isolation Panel [NHANES] Frequency of Communication with Friends and Family: More than three times a week Frequency of Social Gatherings with Friends and Family: Twice a week Attends Worship Services: More than 4 times per year [...] anomaly not found LOC (loss of consciousness) ([facility]) Migraine with aura and without status migrainosus, not intractable Bilateral occipital neuralgia Asthma without status asthmaticus Anxiety Depressive disorder Seizure-like activity ([facility]) Simple partial seizure disorder ([facility]) Psychogenic nonepileptic seizure Acute cough S/P bilateral [...] *This note was completed using a voice head of human resources system. Every effort was made to ensure accuracy. However, inadvertent computerized head of human resources errors may be present. .Total time spent [...] Cintron 04/16/24 1237 [facility] Progress note Formatting of t his note might be different from the original. DISCHARGE PLANNING NOTE Patient's RN reported that patient would like a rolling walker at discharge, Referral placed on [email or web address] with script and face to face documentation attached with a request of delivery to patient's room today for discharge. Bridge Game Director will follow for discharge transition - DESIREE QURESHI RN 04/10/24 3:05 PM [facility] Miscellaneous Notes DISCHARGE PLANNING NOTE Patient's RN reported that patient would like a rolling walker at discharge, [facility] [employer] [facility] [employer] with script and face to face documentation attached with a request of delivery to patient's room today for discharge. Bridge Game Director will follow for discharge transition - DESIREE QURESHI RN 04/10/24 3:05 PM DISCHARGE PLANNING NOTE Referral sent to multiple facilities or agencies due to patient insurance type/difficult placement/patient is without preference. DISCHARGE PLANNING NOTE Per RN during discharge transition rounds, barriers to discharge are: No barriers. [place] referral sent for [facility]. Patient states that she is not comfortable doing her own wound care. Has family that assist 4-5 times per week with wound care. Discharge Plan: Plan is home with [facility] if able to find company to agree to care. Will arrange outpatient wound care if unable to find accepting [facility]. Bridge Game Director will continue to follow for any discharge needs. - Nicky Buchanan RN 04/10/24 10:38 AM Problem: Pain Goal: Patient goal is pain score less than 4, able to rest, and participant in treatment plan as appropriate Description: INTERVENTIONS: 1. Encourage patient or legal b2b outside sales representative to report early pain and ask [...] per policy 9. Teach patient or legal b2b outside sales representative interventions for comforting Outcome: Progressing Note: [...] at the bedside 7. Instruct patient/ patient b2b outside sales representative about use of safety devices 8. Include patient/ patient b2b outside sales representative in decisions related to safety Outcome: [...] hygiene technique. 7. Identify and instruct patient/patient b2b outside sales representative in use of appropriate isolation precautions for identified infection/symptoms. 8. Provide and discuss with patient/patient b2b outside sales representative on educational MDRO sheet. 9. Encourage and monitor nutritional status daily and consult director transportation if indicated. 10. Implement neutropenic guidelines as needed. Outcome: Progressing Note: Evaluation of progress towards goal: Patient afebrile, vital signs stable at this time. Continuing to monitor. Problem: Knowledge Deficit Goal: Patient/patient b2b outside sales representative demonstrates understanding of disease process, treatment [...] Score of =/> 25 [facility] Goal: Patient should be free from fall Description: Interventions: 1. [place] to environment 2. Hourly rounds addressing the [...] non-skid footwear 11. Teach patient and patient b2b outside sales representative to maintain environment for safety and [...] (cane, walker) within reach 19. Request patient b2b outside sales representative bring adaptive equipment/mobility aids from home or obtain and provide as needed 20. Consult pharmacy regarding effects of med's affecting mobility, cognition, and alternatives 21. Obtain physician order for PT if risk factors associated with mobility are present 22. Obtain physician order for OT as appropriate 23. Utilize diversional activities 24. Educate patient and patient b2b outside sales representative how to maintain a safe environment during visitation times (notify nurse prior to leaving bedside) 25. Consider appropriateness of medical or non-medical support specialist 26. Set up voiding schedule as appropriate (every 2 hours) Outcome: Progressing Note: Evaluation of progress towards goal: Patient remains free from falls at this time. Interventions in place to help prevent falls. Continuing to monitor. Problem: Low Risk Fall Score Description: Nath Fall Score of 0 - 24 or indicated by [facility] Assessment Goal: Patient should be free from fall Description: Interventions: 1. [place] to environment 2. Hourly rounds addressing the [...] non-skid footwear 11. Teach patient and patient b2b outside sales representative to maintain environment for safety and [...] Description: INTERVENTIONS: 1. Encourage patient or legal b2b outside sales representative to report early pain and ask [...] per policy 9. Teach patient or legal b2b outside sales representative interventions for comforting Outcome: Progressing Note: [...] at the bedside 7. Instruct patient/ patient b2b outside sales representative about use of safety devices 8. Include patient/ patient b2b outside sales representative in decisions related to safety Outcome: [...] hygiene technique. 7. Identify and instruct patient/patient b2b outside sales representative in use of appropriate isolation precautions for identified infection/symptoms. 8. Provide and discuss with patient/patient b2b outside sales representative on educational MDRO sheet. 9. Encourage and monitor nutritional status daily and consult director transportation if indicated. 10. Implement neutropenic guidelines as needed. Outcome: Progressing Note: Evaluation of progress towards goal: Standard precautions and hand hygiene used to prevent infection Problem: Knowledge Deficit Goal: Patient/patient b2b outside sales representative demonstrates understanding of disease process, treatment [...] Collaborate with ancillary departments 14. Include patient/patient b2b outside sales representative in decisions related to anxiety Outcome: [...] Score of =/> 25 or indicated by [facility] Assessment Goal: Patient should be free from fall Description: Interventions: 1. [place] to environment 2. Hourly rounds addressing the [...] non-skid footwear 11. Teach patient and patient b2b outside sales representative to maintain environment for safety and [...] (cane, walker) within reach 19. Request patient b2b outside sales representative bring adaptive equipment/mobility aids from home or obtain and provide as needed 20. Consult pharmacy regarding effects of med's affecting mobility, cognition, and alternatives 21. Obtain physician order for PT if risk factors associated with mobility are present 22. Obtain physician order for OT as appropriate 23. Utilize diversional activities 24. Educate patient and patient b2b outside sales representative how to maintain a safe environment during visitation times (notify nurse prior to leaving bedside) 25. Consider appropriateness of medical or non-medical support specialist 26. Set up voiding schedule as [...] providing care 6. Collaborate with pastoral/spiritual care, health and social care teacher, mental health counselor as needed. 7. Instruct patient on diversional activities such as physical activity, distraction, and deep breathing exercises to assist with coping 8. Involve patient's b2b outside sales representative in care Outcome: Completed Note: Evaluation of progress towards goal: completed DISCHARGE PLANNING NOTE Update: [facility] unable to accept. [facility]errals for [facility] per patient choice sent. Waiting on reply. - Nicky Buchanan RN 04/09/24 2:59 PM DISCHARGE PLANNING NOTE Manager Social met with patient, introduced self, and explained [...] 03/25/2024 Prolonged emergence from general anesthesia Seizure ([facility]) Last one 03-11-2024 Prior to admission patient was living with family and self care. Medical equipment patient used prior to admission includes: None. Patient denies need for transportation/ food/ prescription medication assistance resources. Patient lives with minor children and boyfriend. Has support from mother. Referral sent to [facility] per patient choice- her daughter has used them before. PCP: CORINE GOLD MD Pharmacy:[facility] in [place] PCP and pharmacy confirmed with patient. CN offered to assist with follow up appointment arrangements; patient declines - states will self-schedule follow up appointments. CORINE GOLD MD added to Follow Up Providers for Summary of Care communication. Per patient self-report: Drug use: no Smoking: no ETOH Use: no Current discharge plan is: Home with [facility] for wound care Services Requested: Services Requested Patient expects to be discharged to:: home Discharge Disposition: Home with home health services Does the patient need discharge transportation arranged?: No Patient choice offered: Yes List Provided: Yes [facility] List Provided: Home Care Visiting Physician/Provider: Corine Gold Goals: Goals home (pt-stated) Evaluation of progress towards goal: Patient stated goal is to return home with [facility] for assistance with wound care Will [...] Description: INTERVENTIONS: 1. Encourage patient or legal b2b outside sales representative to report early pain and ask [...] per policy 9. Teach patient or legal b2b outside sales representative interventions for comforting Outcome: Progressing Note: [...] at the bedside 7. Instruct patient/ patient b2b outside sales representative about use of safety devices 8. Include patient/ patient b2b outside sales representative in decisions related to safety Outcome: [...] hygiene technique. 7. Identify and instruct patient/patient b2b outside sales representative in use of appropriate isolation precautions for identified infection/symptoms. 8. Provide and discuss with patient/patient b2b outside sales representative on educational MDRO sheet. 9. Encourage and monitor nutritional status daily and consult director transportation if indicated. 10. Implement neutropenic guidelines as needed. Outcome: Progressing Note: Evaluation of progress towards goal: on iv atb. Cont to trend labs.fevers Problem: Knowledge Deficit Goal: Patient/patient b2b outside sales representative demonstrates understanding of disease process, treatment [...] Collaborate with ancillary departments 14. Include patient/patient b2b outside sales representative in decisions related to anxiety Outcome: [...] providing care 6. Collaborate with pastoral/spiritual care, health and social care teacher, mental health counselor as needed. 7. Instruct patient on diversional activities such as physical activity, distraction, and deep breathing exercises to assist with coping 8. Involve patient's b2b outside sales representative in care Outcome: Progressing Note: Evaluation of progress towards goal: able to voice concerns. Problem: Moderate - High Risk Fall Score Description: Nath Fall Score of =/> 25 or indicated by [facility] Assessment Goal: Patient should be free from fall Description: Interventions: 1. [place] to environment 2. Hourly rounds addressing the [...] non-skid footwear 11. Teach patient and patient b2b outside sales representative to maintain environment for safety and [...] (cane, walker) within reach 19. Request patient b2b outside sales representative bring adaptive equipment/mobility aids from home or obtain and provide as needed 20. Consult pharmacy regarding effects of med's affecting mobility, cognition, and alternatives 21. Obtain physician order for PT if risk factors associated with mobility are present 22. Obtain physician order for OT as appropriate 23. Utilize diversional activities 24. Educate patient and patient b2b outside sales representative how to maintain a safe environment during visitation times (notify nurse prior to leaving bedside) 25. Consider appropriateness of medical or non-medical support specialist 26. Set up voiding schedule as [...] Description: INTERVENTIONS: 1. Encourage patient or legal b2b outside sales representative to report early pain and ask [...] per policy 9. Teach patient or legal b2b outside sales representative interventions for comforting Note: Evaluation of [...] at the bedside 7. Instruct patient/ patient b2b outside sales representative about use of safety devices 8. Include patient/ patient b2b outside sales representative in decisions related to safety Note: [...] hygiene technique. 7. Identify and instruct patient/patient b2b outside sales representative in use of appropriate isolation precautions for identified infection/symptoms. 8. Provide and discuss with patient/patient b2b outside sales representative on educational MDRO sheet. 9. Encourage and monitor nutritional status daily and consult director transportation if indicated. 10. Implement neutropenic guidelines as needed. Note: Evaluation of progress towards goal: Wound culture pending. Iv zosyn, vanco, and flagyl administered 04/08. Problem: Knowledge Deficit Goal: Patient/patient b2b outside sales representative demonstrates understanding of disease process, treatment [...] Collaborate with ancillary departments 14. Include patient/patient b2b outside sales representative in decisions related to anxiety Note: [...] providing care 6. Collaborate with pastoral/spiritual care, health and social care teacher, mental health counselor as needed. 7. Instruct patient on diversional activities such as physical activity, distraction, and deep breathing exercises to assist with coping 8. Involve patient's b2b outside sales representative in care Note: Evaluation of progress towards goal: Emotional support provided by RN and pts SO. documented in this encounter [facility] 04-10-2024 History of Present illness Narrative The [...] BSO: estradiol patch 6. Anticipate DC later tara Pagan, MS3 [facility] Resident Attestation I have seen and evaluated the patient, and have also reviewed the documentation above. I have repeated and performed the chong portions of the physical exam and concur with the student's findings. I agree with the plan as noted above with any changes made as necessary. George Pisano MD General Internal Medicine Physician Resident PGY-1 04/10/24 7:50 AM If questions [...] Date/Time Wound culture superficial includes gram stain [[id number]] Collected: 04/08/242024 Specimen: Wound Swab Updated: 04/08/24 2331 Gram Stain Result >25 WHITE BLOOD CELLS/LPF 0 SQUAMOUS EPITHELIAL CELLS/LPF FEW GRAM POSITIVE COCCI Culture PENDING Urine culture [[id number]] Collected: 04/08/24 1616 Specimen: Urine Updated: 04/08/24 1723 Blood culture [[id number]] Collected: 04/08/24 1411 Specimen: Blood Updated: 04/09/24 0229 Culture NO GROWTH <24 HRS SARS/FLU A+B/RSV by NAAT/Molecular (M4RT Collection Tube) [[id number]] Collected: 04/08/24 1403 Specimen: Nasopharynx Updated: 04/08/24 1506 FLU A PCR Negative FLU B PCR Negative RSV by PCR Negative SARS CoV 2 BY PCR Not Detected Blood culture [[id number]] Collected: 04/08/24 1343 Specimen: Blood Updated: 04/09/24 [...] clinical status. Thank you for consulting. Nicholas Osuna PharmD, BCPS [id number] Images from the original note were not [...] of care per primary. Sherri Miranda, MS3 [facility] 04/09/24 7:25 AM Jaziel Crump MD PGY-3 Surgery Resident 04/09/24 7:25 AM Cosigned by Benjamin Francis MD at 04/09/2024 10:19 PM EST Associated attestation - Benjamin Francis MD - 04/09/2024 10:19 PM EST documented in this encounter [facility] 04-10-2024 Progress note Formatting of t his note might be different from the original. DISCHARGE PLANNING NOTE Referral sent to multiple facilities or agencies due to patient insurance type/difficult placement/patient is without preference. [facility] 04-10-2024 Progress note Formatting of t his note might be different from the original. DISCHARGE PLANNING NOTE Per RN during discharge transition rounds, barriers to discharge are: No barriers. [place] referral sent for [facility]. Patient states that she is not comfortable doing her own wound care. Has family that assist 4-5 times per week with wound care. Discharge Plan: Plan is home with [facility] if able to find company to agree to care. Will arrange outpatient wound care if unable to find accepting [facility]. Bridge Game Director will continue to follow for any discharge needs. - Nicky Buchanan RN 04/10/24 10:38 AM [facility] 04-10-2024 Plan of care note Problem: Pain Goal: Patient goal is pain score less than 4, able to rest, and participant in treatment plan as appropriate Description: INTERVENTIONS: 1. Encourage patient or legal b2b outside sales representative to report early pain and ask [...] per policy 9. Teach patient or legal b2b outside sales representative interventions for comforting Outcome: Progressing Note: [...] at the bedside 7. Instruct patient/ patient b2b outside sales representative about use of safety devices 8. Include patient/ patient b2b outside sales representative in decisions related to safety Outcome: [...] hygiene technique. 7. Identify and instruct patient/patient b2b outside sales representative in use of appropriate isolation precautions for identified infection/symptoms. 8. Provide and discuss with patient/patient b2b outside sales representative on educational MDRO sheet. 9. Encourage and monitor nutritional status daily and consult director transportation if indicated. 10. Implement neutropenic guidelines as needed. Outcome: Progressing Note: Evaluation of progress towards goal: Patient afebrile, vital signs stable at this time. Continuing to monitor. Problem: Knowledge Deficit Goal: Patient/patient b2b outside sales representative demonstrates understanding of disease process, treatment [...] Score of =/> 25 or indicated by [facility] Assessment Goal: Patient should be free from fall Description: Interventions: 1. [place] to environment 2. Hourly rounds addressing the [...] non-skid footwear 11. Teach patient and patient b2b outside sales representative to maintain environment for safety and [...] (cane, walker) within reach 19. Request patient b2b outside sales representative bring adaptive equipment/mobility aids from home or obtain and provide as needed 20. Consult pharmacy regarding effects of med's affecting mobility, cognition, and alternatives 21. Obtain physician order for PT if risk factors associated with mobility are present 22. Obtain physician order for OT as appropriate 23. Utilize diversional activities 24. Educate patient and patient b2b outside sales representative how to maintain a safe environment during visitation times (notify nurse prior to leaving bedside) 25. Consider appropriateness of medical or non-medical support specialist 26. Set up voiding schedule as appropriate (every 2 hours) Outcome: Progressing Note: Evaluation of progress towards goal: Patient remains free from falls at this time. Interventions in place to help prevent falls. Continuing to monitor. Problem: Low Risk Fall Score Description: Nath Fall Score of 0 - 24 or indicated by [facility] Assessment Goal: Patient should be free from fall Description: Interventions: 1. [place] to environment 2. Hourly rounds addressing the [...] non-skid footwear 11. Teach patient and patient b2b outside sales representative to maintain environment for safety and engage in all aspects of fall prevention program Outcome: Progressing Note: Evaluation of progress towards goal: Patient remains free from falls at this time. Interventions in place to help prevent falls. Continuing to monitor. [facility] 04-10-2024 Hospital course Narrative Inpatient [...] ED, the patient had been evaluated at [facility] and was given 1 dose of bactrim [...] 12:15-13:45 04/09, then 21:33-23:03 04/09, 04:40-06:10 04/10, Tx'ed on 04/10 Diazepam 5 mg given at [...] 200 mg given BID during inpatient stay [place] carbonate 600 mg PO given qd during inpatient stay Lorazepam 1 mg injection given at 20:11 04/08 IV Morphine 4 mg injection given :04/08 Zofran 4 mg IV given 14:04/08 0.9% NaCl 2,000 mL fluid bolus given [...] Zaki Gupta 04/10/24 3rd Year Medical Student, [facility] Resident Attestation I have seen and evaluated the patient, and have also reviewed the documentation above. I have repeated and performed the chong portions of the physical exam and concur with the student's findings. I agree with the plan as noted above with any changes made as necessary. George Pisano MD General Internal Medicine Physician Resident PGY-1 04/10/24 9:39 AM Cosigned by [...] unless otherwise specified. documented in this encounter [facility] 04-09-2024 Plan of care note Problem: Pain Goal: Patient goal is pain score less than 4, able to rest, and participant in treatment plan as appropriate Description: INTERVENTIONS: 1. Encourage patient or legal b2b outside sales representative to report early pain and ask [...] per policy 9. Teach patient or legal b2b outside sales representative interventions for comforting Outcome: Progressing Note: [...] at the bedside 7. Instruct patient/ patient b2b outside sales representative about use of safety devices 8. Include patient/ patient b2b outside sales representative in decisions related to safety Outcome: [...] hygiene technique. 7. Identify and instruct patient/patient b2b outside sales representative in use of appropriate isolation precautions for identified infection/symptoms. 8. Provide and discuss with patient/patient b2b outside sales representative on educational MDRO sheet. 9. Encourage and monitor nutritional status daily and consult director transportation if indicated. 10. Implement neutropenic guidelines as needed. Outcome: Progressing Note: Evaluation of progress towards goal: Standard precautions and hand hygiene used to prevent infection Problem: Knowledge Deficit Goal: Patient/patient b2b outside sales representative demonstrates understanding of disease process, treatment [...] Collaborate with ancillary departments 14. Include patient/patient b2b outside sales representative in decisions related to anxiety Outcome: [...] Score of =/> 25 or indicated by [facility] Assessment Goal: Patient should be free from fall Description: Interventions: 1. [place] to environment 2. Hourly rounds addressing the [...] non-skid footwear 11. Teach patient and patient b2b outside sales representative to maintain environment for safety and [...] (cane, walker) within reach 19. Request patient b2b outside sales representative bring adaptive equipment/mobility aids from home or obtain and provide as needed 20. Consult pharmacy regarding effects of med's affecting mobility, cognition, and alternatives 21. Obtain physician order for PT if risk factors associated with mobility are present 22. Obtain physician order for OT as appropriate 23. Utilize diversional activities 24. Educate patient and patient b2b outside sales representative how to maintain a safe environment during visitation times (notify nurse prior to leaving bedside) 25. Consider appropriateness of medical or non-medical support specialist 26. Set up voiding schedule as [...] providing care 6. Collaborate with pastoral/spiritual care, health and social care teacher, mental health counselor as needed. 7. Instruct patient on diversional activities such as physical activity, distraction, and deep breathing exercises to assist with coping 8. Involve patient's b2b outside sales representative in care Outcome: Completed Note: Evaluation of progress towards goal: completed [facility] 04-09-2024 Progress note Formatting of t his note might be different from the original. DISCHARGE PLANNING NOTE Update: [facility] unable to accept. Referrals for [facility] per patient choice sent. Waiting on reply. - Nicky Buchanan RN 04/09/24 2:59 PM [facility] 04-09-2024 Progress note Formatting of t his note is different from the original. DISCHARGE PLANNING NOTE Manager Social met with patient, introduced self, and explained role. Patient educated on safe discharge plan. Pt admitted 04/08/2024 with Abdominal wall cellulitis [L03.311] Sepsis ([facility]) [A41.9] Postoperative surgical complication involving genitourinary system [...] 03/25/2024 Prolonged emergence from general anesthesia Seizure ([facility]) Last one 03-11-2024 Prior to admission patient was living with family and self care. Medical equipment patient used prior to admission includes: None. Patient denies need for transportation/ food/ prescription medication assistance resources. Patient lives with minor children and boyfriend. Has support from mother. Referral sent to [facility] per patient choice- her daughter has used them before. PCP: CORINE GOLD MD Pharmacy:[facility] in [place] PCP and pharmacy confirmed with patient. CN [...] - Nicky Buchanan RN 04/09/24 10:46 AM [employer] 04-09-2024 Consult note Formatting of th is [...] injury to the rectum who presents to [facility] ED due to abdominal pain that [...] day course of clindamycin. She went to [place] ED yesterday and was given 1 dose [...] 03/25/2024 Prolonged emergence from general anesthesia Seizure ([facility]) Last one 03-11-2024 Past Surgical History: Past Surgical History: Procedure Laterality Date APPENDECTOMY SECTION CHOLECYSTECTOMY [facility] LYSIS OF ADHESIONS N/A 03/28/2024 Performed by Mundo Martinez MD at [facility] LYSIS OF ADHESIONS N/A 03/28/2024 Performed by Jesse Sultana MD at [facility] [place] OOPHORECTOMY/FROZEN SECTION Bilateral 03/28/2024 Performed by Mundo Martinez MD at [facility] DILATION AND CURETTAGE OF UTERUS PARTIAL HYSTERECTOMY [...] Physical Activity: Insufficiently Active (01/23/2024) Received from [facility] Exercise Vital Sign Days of Exercise per Week: 7 days Minutes of Exercise per Session: 10 min Stress: Stress Concern Present (01/23/2024) Received from [facility] [place] [employer] - Occupational Stress Questionnaire Feeling of Stress : Rather much Social Connections: Socially Integrated (01/23/2024) Received from [facility] Social Connection and Isolation Panel [NHANES] Frequency of Communication with Friends and Family: More than three times a week Frequency of Social Gatherings with Friends and Family: Twice a week Attends Worship Services: More than 4 times per year [...] and sanguinous fluid Iodoform packing strips CARIE Trevino If questions or concerns, please contact via [facility] pager at [phone]. Resident Attestation I have seen and evaluated the patient, and have also reviewed the documentation above. I have repeated and performed the chong portions of the physical exam and concur with the student's findings. I agree with the plan as noted above with any changes made as necessary. George Pisano MD General Internal Medicine Physician Resident PGY-1 04/09/24 7:52 AM Cosigned by [...] Will initiate transdermal estrogen for vasomotor symptoms. [facility] 04-09-2024 Plan of care note Problem: Pain Goal: Patient goal is pain score less than 4, able to rest, and participant in treatment plan as appropriate Description: INTERVENTIONS: 1. Encourage patient or legal b2b outside sales representative to report early pain and ask [...] per policy 9. Teach patient or legal b2b outside sales representative interventions for comforting Outcome: Progressing Note: [...] at the bedside 7. Instruct patient/ patient b2b outside sales representative about use of safety devices 8. Include patient/ patient b2b outside sales representative in decisions related to safety Outcome: [...] hygiene technique. 7. Identify and instruct patient/patient b2b outside sales representative in use of appropriate isolation precautions for identified infection/symptoms. 8. Provide and discuss with patient/patient b2b outside sales representative on educational MDRO sheet. 9. Encourage and monitor nutritional status daily and consult director transportation if indicated. 10. Implement neutropenic guidelines as needed. Outcome: Progressing Note: Evaluation of progress towards goal: on iv atb. Cont to trend labs.fevers Problem: Knowledge Deficit Goal: Patient/patient b2b outside sales representative demonstrates understanding of disease process, treatment [...] Collaborate with ancillary departments 14. Include patient/patient b2b outside sales representative in decisions related to anxiety Outcome: [...] providing care 6. Collaborate with pastoral/spiritual care, health and social care teacher, mental health counselor as needed. 7. Instruct patient on diversional activities such as physical activity, distraction, and deep breathing exercises to assist with coping 8. Involve patient's b2b outside sales representative in care Outcome: Progressing Note: Evaluation of progress towards goal: able to voice concerns. Problem: Moderate - High Risk Fall Score Description: Nath Fall Score of =/> 25 or indicated by [facility] Assessment Goal: Patient should be free from fall Description: Interventions: 1. [place] to environment 2. Hourly rounds addressing the [...] non-skid footwear 11. Teach patient and patient b2b outside sales representative to maintain environment for safety and [...] (cane, walker) within reach 19. Request patient b2b outside sales representative bring adaptive equipment/mobility aids from home or obtain and provide as needed 20. Consult pharmacy regarding effects of med's affecting mobility, cognition, and alternatives 21. Obtain physician order for PT if risk factors associated with mobility are present 22. Obtain physician order for OT as appropriate 23. Utilize diversional activities 24. Educate patient and patient b2b outside sales representative how to maintain a safe environment during visitation times (notify nurse prior to leaving bedside) 25. Consider appropriateness of medical or non-medical support specialist 26. Set up voiding schedule as appropriate (every 2 hours) Outcome: Progressing Note: Evaluation of progress towards goal: free from falls, cont to use nonskid footwear with ambulation. Pt instructed to call out when appropriate to aid with ambulation [facility] [employer] 04-09-2024 Consult note Formatting of th is [...] injury to the rectum who presents to [facility] ED due to abdominal pain that [...] day course of clindamycin. She went to [place] ED yesterday and was given 1 dose [...] 03/25/2024 Prolonged emergence from general anesthesia Seizure ([facility]) Last one 03-11-2024 Past Surgical History: Past Surgical History: Procedure Laterality Date APPENDECTOMY SECTION CHOLECYSTECTOMY [facility] LYSIS OF ADHESIONS N/A 03/28/2024 Performed by Mundo Martinez MD at [place] [address] LYSIS OF ADHESIONS N/A 03/28/2024 Performed by Jesse Sultana MD at [facility] [place] OOPHORECTOMY/FROZEN SECTION Bilateral 03/28/2024 Performed by Mundo Martinez MD at [facility] DILATION AND CURETTAGE OF UTERUS PARTIAL HYSTERECTOMY [...] Melton, , 10 mL at 04/08/24 1525 traZODone (DESYREL) [...] Physical Activity: Insufficiently Active (01/23/2024) Received from [facility] Exercise Vital Sign Days of Exercise per Week: 7 days Minutes of Exercise per Session: 10 min Stress: Stress Concern Present (01/23/2024) Received from [facility] [employer] - Occupational Stress Questionnaire Feeling of Stress : Rather much Social Connections: Socially Integrated (01/23/2024) Received from [facility] Social Connection and Isolation Panel [NHANES] Frequency of Communication with Friends and Family: More than three times a week Frequency of Social Gatherings with Friends and Family: Twice a week Attends Worship Services: More than 4 times per year [...] and sanguinous fluid Iodoform packing strips Stephen Pablito, MS4 If questions or concerns, please contact via [employer] pager at [phone]. Resident Attestation I have seen and evaluated the patient, and have also reviewed the documentation above. I have repeated and performed the chong portions of the physical exam and concur with the student's findings. I agree with the plan as noted above with any changes made as necessary. George Pisano MD General Internal Medicine Physician Resident PGY-1 04/09/24 7:52 AM Cosigned by [...] 03/25/2024 Prolonged emergence from general anesthesia Seizure ([facility]) Last one 03-11-2024 Past Surgical History: Procedure Laterality Date APPENDECTOMY SECTION CHOLECYSTECTOMY [facility] LYSIS OF ADHESIONS N/A 03/28/2024 Performed by Mundo Martinez MD at [place] [address] LYSIS OF ADHESIONS N/A 03/28/2024 Performed by Jesse Sultana MD at [place] [address] SALPINGO OOPHORECTOMY/FROZEN SECTION Bilateral 03/28/2024 Performed by Mundo Martinez MD at [facility] DILATION AND CURETTAGE OF UTERUS PARTIAL HYSTERECTOMY [...] Melton, DO, 10 mL at 04/08/24 1525 vancomycin [...] to allergen)., Disp: 2 each, Rfl: 1 zsqrzhysrkd-gtdnkhmoa-oaonqbpm (TRELEGY ELLIPTA) 200-62.5-25 mcg blister with device, [...] Resource Strain: Low Risk (01/23/2024) Received from [facility] Overall Financial Resource Strain (CARDIA) Difficulty of Paying Living Expenses: Not very hard Food Insecurity: No Food Insecurity (02/09/2024) Hunger Screening Food Insecurity - Worry: Never True Food Insecurity - Inability: Never True Transportation Needs: Unknown (01/23/2024) Received from [facility] PRAPARE - Transportation Lack of Transportation (Medical): Patient declined Lack of Transportation (Non-Medical): No Physical Activity: Insufficiently Active (01/23/2024) Received from [facility] Exercise Vital Sign Days of Exercise per Week: 7 days Minutes of Exercise per Session: 10 min Stress: Stress Concern Present (01/23/2024) Received from [facility] [place] [employer] [employer] - Occupational Stress Questionnaire Feeling of Stress : Rather much Social Connections: Socially Integrated (01/23/2024) Received from [facility] Social Connection and Isolation Panel [NHANES] Frequency of Communication with Friends and Family: More than three times a week Frequency of Social Gatherings with Friends and Family: Twice a week Attends Worship Services: More than 4 times per year Active Member of Clubs or Organizations: Yes Attends Club or Organization Meetings: More than 4 times per year Marital Status: Living with partner Interpersonal Safety: Not on file Housing Instability: Low Risk (01/23/2024) Received from [facility] Housing Stability Vital Sign Unable to Pay [...] General Surgery B 6a - 6p Pager: [phone] 6p - 6a Pager: [phone] Cosigned by Benjamin Francis MD at 04/09/2024 9:48 AM EST Associated attestation - Benjamin Francis MD - 04/09/2024 9:48 AM EST Attending attestation: I reviewed the resident's note and discussed the case with the resident. Additional findings/notes: Local wound care. Will sign-off. Benjamin Francis MD, FACS General Surgery and Minimally Invasive Surgery [address] [place] [address], [address] [place] [address] Office: documented in this encounter [facility] [employer] [facility] 04-09-2024 Plan of care note Problem: Pain Goal: Patient goal is pain score less than 4, able to rest, and participant in treatment plan as appropriate Description: INTERVENTIONS: 1. Encourage patient or legal b2b outside sales representative to report early pain and ask [...] per policy 9. Teach patient or legal b2b outside sales representative interventions for comforting Note: Evaluation of [...] at the bedside 7. Instruct patient/ patient b2b outside sales representative about use of safety devices 8. Include patient/ patient b2b outside sales representative in decisions related to safety Note: [...] hygiene technique. 7. Identify and instruct patient/patient b2b outside sales representative in use of appropriate isolation precautions for identified infection/symptoms. 8. Provide and discuss with patient/patient b2b outside sales representative on educational MDRO sheet. 9. Encourage and monitor nutritional status daily and consult director transportation if indicated. 10. Implement neutropenic guidelines as needed. Note: Evaluation of progress towards goal: Wound culture pending. Iv zosyn, vanco, and flagyl administered 04/08. Problem: Knowledge Deficit Goal: Patient/patient b2b outside sales representative demonstrates understanding of disease process, treatment [...] Collaborate with ancillary departments 14. Include patient/patient b2b outside sales representative in decisions related to anxiety Note: [...] providing care 6. Collaborate with pastoral/spiritual care, health and social care teacher, mental health counselor as needed. 7. Instruct patient on diversional activities such as physical activity, distraction, and deep breathing exercises to assist with coping 8. Involve patient's b2b outside sales representative in care Note: Evaluation of progress towards goal: Emotional support provided by RN and pts SO. [facility] 04-08-2024 Procedure note PROCEDURE NOTE [...] I reviewed the resident's note. Additional Notes/Findings: [facility] 04-08-2024 Procedure note PROCEDURE NOTE INCISION AND [...] note. Additional Notes/Findings: documented in this encounter [facility] 04-08-2024 Consult note Formatting of th is [...] 03/25/2024 Prolonged emergence from general anesthesia Seizure ([facility]) Last one 03-11-2024 Past Surgical History: Procedure Laterality Date [facility] LYSIS OF ADHESIONS N/A 03/28/2024 Performed by Mundo Martinez MD at [facility] LYSIS OF ADHESIONS N/A 03/28/2024 Performed by Jesse Sultana MD at [facility]5 [place]O OOPHORECTOMY/FROZEN SECTION Bilateral 03/28/2024 Performed by Mundo Martinez MD at [facility] DILATION AND CURETTAGE OF UTERUS PARTIAL HYSTERECTOMY [...] to allergen)., Disp: 2 each, Rfl: 1 ebyndtqqeuf-ammychiji-ngjiekwk (TRELEGY ELLIPTA) 200-62.5-25 mcg blister with device, [...] Resource Strain: Low Risk (01/23/2024) Received from [facility] Overall Financial Resource Strain (CARDIA) Difficulty of Paying Living Expenses: Not very hard Food Insecurity: No Food Insecurity (02/09/2024) Hunger Screening Food Insecurity - Worry: Never True Food Insecurity - Inability: Never True Transportation Needs: Unknown (01/23/2024) Received from [facility] PRAPARE - Transportation Lack of Transportation (Medical): Patient declined Lack of Transportation (Non-Medical): No Physical Activity: Insufficiently Active (01/23/2024) Received from [facility] Exercise Vital Sign Days of Exercise per Week: 7 days Minutes of Exercise per Session: 10 min Stress: Stress Concern Present (01/23/2024) Received from [facility] [place] [employer] [employer] - Occupational Stress Questionnaire Feeling of Stress : Rather much Social Connections: Socially Integrated (01/23/2024) Received from [facility] Social Connection and Isolation Panel [NHANES] Frequency of Communication with Friends and Family: More than three times a week Frequency of Social Gatherings with Friends and Family: Twice a week Attends Worship Services: More than 4 times per year Active Member of Clubs or Organizations: Yes Attends Club or Organization Meetings: More than 4 times per year Marital Status: Living with partner Interpersonal Safety: Not on file Housing Instability: Low Risk (01/23/2024) Received from [facility] Housing Stability Vital Sign Unable to Pay [...] General Surgery B 6a - 6p Pager: [phone] 6p - 6a Pager: [phone] Cosigned by Benjamin Francis MD at 04/09/2024 9:48 AM EST Associated attestation - Benjamin Francis MD - 04/09/2024 9:48 AM EST Attending attestation: I reviewed the resident's note and discussed the case with the resident. Additional findings/notes: Local wound care. Will sign-off. Benjamin Francis MD, [facility] General Surgery and Minimally Invasive Surgery [address] [place] [address], [place] [address] Office: [facility] Work Phone: 04-08-2024 Physician Emergency department Note Images from the original note were not included. [facility] - EMERGENCY DEPARTMENT Pt Name: April Nicholson [...] states that she was recently evaluated at [facility] yesterday and was given Keflex and recommended [...] 03/25/2024 Prolonged emergence from general anesthesia Seizure ([facility]) Last one 03-11-2024 Past Surgical History: Past Surgical History: Procedure Laterality Date APPENDECTOMY SECTION CHOLECYSTECTOMY [place] [address] LYSIS OF ADHESIONS N/A 03/28/2024 Performed by Mundo Martinez MD at [place] [address] LYSIS OF ADHESIONS N/A 03/28/2024 Performed by Jesse Sultana MD at [place] [address] [place]O OOPHORECTOMY/FROZEN SECTION Bilateral 03/28/2024 Performed by Mundo Martinez MD at [facility] DILATION AND CURETTAGE OF UTERUS PARTIAL HYSTERECTOMY [...] Physical Activity: Insufficiently Active (01/23/2024) Received from [facility] Exercise Vital Sign Days of Exercise per Week: 7 days Minutes of Exercise per Session: 10 min Stress: Stress Concern Present (01/23/2024) Received from [facility] [place] [employer] - Occupational Stress Questionnaire Feeling of Stress : Rather much Social Connections: Socially Integrated (01/23/2024) Received from [facility] Social Connection and Isolation Panel [NHANES] Frequency of Communication with Friends and Family: More than three times a week Frequency of Social Gatherings with Friends and Family: Twice a week Attends Worship Services: More than 4 times per year [...] nursing note reviewed. Exam conducted with a director of web marketing present. Constitutional: General: She is in acute [...] mg (100 mg infiltration Not Given 04/08/24 165) lidocaine PF (XYLOCAINE) 10 mg/mL (1 %) [...] Given 04/08/24 1640) lidocaine-EPINEPHrine (XYLOCAINE W/EPI) 1 %-1:996097 injection 30 mL (20 mL intradermal Given [...] and physical exam, pt requires admission to [facility] for IV antibiotics, pain control, general surgery [...] ED Course as of 04/08/241958Apr 08, 2024 132 BP: 108/72 [JR] 1322 Heart Rate(!): 115 [JR] 1322 Resp: 18 [JR] 1322 SpO2: 95 % [JR] 1322 Temp: 37.5 C (99.5 F) [JR] 1322 Pain Score: 10 [JR] 1406 [facility] evaluating patient at bedside [JR] 1413 X-ray [...] 12 lead Sinus tachycardia, heart rate 103, WV interval 134, QRS 75, QTC 427. No [...] notes hat she was recently evaluated at [facility] yesterday and was given Keflex and recommended [...] 4:29 PM Comment Diagnosis: Abdominal wall cellulitis [[id number]] Attending Provider: MILAD HERNANDEZ [[id number]] Estimated length of stay?: >2 midnights/In-patient only [...] Attestation: I, Dr. Melton personally performed a ivjk-rf-uuik diagnostic evaluation on this patient. I have [...] are mis-transcribed. Rohan Velazquez MD Resident 04/08/24 9768 Lito Cowan 04/08/24 1355 Lito Cowan 04/08/24 1433 Rohan Velazquez MD Resident 04/08/242000 Yordy Melton DO 04/09/24 0734 [facility] [employer] Work Phone: 04-08-2024 Emergency department Note Images from the original note were not included. [facility] - EMERGENCY DEPARTMENT Pt Name: April Nicholson [...] states that she was recently evaluated at [facility] yesterday and was given Keflex and recommended [...] History: Procedure Laterality Date APPENDECTOMY SECTION CHOLECYSTECTOMY [facility] LYSIS OF ADHESIONS N/A 03/28/2024 Performed by Mundo Martinez MD at [facility] LYSIS OF ADHESIONS N/A 03/28/2024 Performed by Jesse Sultana MD at [facility] [place] OOPHORECTOMY/FROZEN SECTION Bilateral 03/28/2024 Performed by Mundo Martinez MD at [facility] DILATION AND CURETTAGE OF UTERUS PARTIAL HYSTERECTOMY [...] Physical Activity: Insufficiently Active (01/23/2024) Received from [facility] Exercise Vital Sign Days of Exercise per Week: 7 days Minutes of Exercise per Session: 10 min Stress: Stress Concern Present (01/23/2024) Received from [facility] [place] [employer] - Occupational Stress Questionnaire Feeling of Stress : Rather much Social Connections: Socially Integrated (01/23/2024) Received from [facility] Social Connection and Isolation Panel [NHANES] Frequency of Communication with Friends and Family: More than three times a week Frequency of Social Gatherings with Friends and Family: Twice a week Attends Worship Services: More than 4 times per year [...] nursing note reviewed. Exam conducted with a director of web marketing present. Constitutional: General: She is in acute [...] 600 mg (600 mg oral Given 04/08/24 221) ondansetron ODT (ZOFRAN ODT) disintegrating tablet 4 [...] chloride (premix) (0 mg intravenous Stop Bag 04/08/242129) piperacillin-tazobactam (ZOSYN) 4.5 g in sodium chloride 0.9 % 50 mL IVPB-MBP (0 g intravenous Stop Bag 04/08/242258) HYDROmorphone (DILAUDID) injection 1 mg (1 mg intravenous Given 04/08/241639) lidocaine-EPINEPHrine (XYLOCAINE W/EPI) 1 %-1:914998 injection 30 mL (20 mL intradermal Given [...] and physical exam, pt requires admission to [facility] for IV antibiotics, pain control, general surgery [...] [JR] 1322 Pain Score: 10 [JR] 1406 [facility]/Onc evaluating patient at bedside [JR] 1413 X-ray [...] 12 lead Sinus tachycardia, heart rate 103, WV interval 134, QRS 75, QTC 427. No [...] notes hat she was recently evaluated at [facility] yesterday and was given Keflex and recommended [...] 4:29 PM Comment Diagnosis: Abdominal wall cellulitis [[id number]] Attending Provider: MILAD HERNANDEZ [[id number]] Estimated length of stay?: >2 midnights/In-patient only procedure/<96 hours Critical Access Certification: I certify that inpatient services are medically necessary for this patient for a duration of greater than two midnights. See H&P and MD Progress Notes for additional information about the patient's course of treatment. Bed request comments: GEN6 Acute ED Prescriptions None Scribe Attestation IDr. Melton personally performed the services described in the documentation, as scribed by Lito Cowan in my presence, and it is both accurate and complete. Resident Attestation: IDr. Melton personally performed a ijxe-yh-jsew diagnostic evaluation on this patient. I have [...] labs in back. documented in this encounter [facility] 04-08-2024 Emergency department Note Pt tearful in triage, lots of recent blood draws, requesting labs in back. [facility] 04-08-2024 Miscellaneous Notes Patient called reporting persistent fever of 105 F that is not reducing with medication. She has been to the ED in [place] multiple times and has been sent home every time. She also reports pain and green drainage from her surgical incision. Spoke to Svetlana Ye PA-C; she recommends that patient visit [facility] ED and and wants to inform patient that our team and residents will be able to round on her there. Patient is agreeable to plan. documented in this encounter [facility] 04-08-2024 Telephone encounter Note Patient called reporting persistent fever of 105 F that is not reducing with medication. She has been to the ED in [place] multiple times and has been sent home every time. She also reports pain and green drainage from her surgical incision. Spoke to Svetlana Ye PA-C; she recommends that patient visit [facility] ED and and wants to inform patient that our team and residents will be able to round on her there. Patient is agreeable to plan. [facility] 04-02-2024 History of Present illness Narrative Diflucan [...] in female 12/19/2022 Mixed bipolar I disorder ([facility]) 01/24/2023 Chronic migraine without aura without status migrainosus, not intractable ([facility]) 01/24/2023 Generalized anxiety disorder ([facility]) 01/24/2023 Persistent disorder of initiating or maintaining sleep 01/24/2023 Mild persistent asthma ([facility]) 01/24/2023 Polycystic ovaries 01/24/2023 Psychogenic nonepileptic seizure ([facility]) 01/24/2023 Class 3 severe obesity due to excess calories without serious comorbidity with body mass index (BMI) of 50.0 to 59.9 in adult ([facility]) 03/21/2023 Mild persistent asthma with (acute) exacerbation ([facility]) 10/10/2023 Fatigue 01/01/2024 Encounter for long-term [...] Acute exacerbation of asthma with allergic rhinitis ([facility]) Allergies Asthma ([facility]) At low risk for fall Bipolar affective, mixed ([facility]) ([facility]) Change in blood pressure Cholecystitis 2009 Depressive disorder ([facility]) OMID (generalized anxiety disorder) ([facility]) History of hysterectomy 10/01/2021 Insomnia, persistent Migraines ([facility]) Mild persistent asthma without complication ([facility]) Morbid obesity with BMI of 40.0-44.9, adult ([facility]) PCOS (polycystic ovarian syndrome) Right otitis media Seizures ([facility]) HISTORY PAST MEDICAL HISTORY SOCIAL HISTORY Past Medical History: Diagnosis Date Acute exacerbation of asthma with allergic rhinitis ([facility]) Allergies Asthma ([facility]) At low risk for fall Bipolar affective, mixed (HCC) ([facility]) Change in blood pressure high and low Cholecystitis 2008 Chronic migraine without aura without status migrainosus, not intractable ([facility]) Depressive disorder ([facility]) OMID (generalized anxiety disorder) ([facility]) History of hysterectomy 10/01/2021 Insomnia, persistent Migraines ([facility]) Mild persistent asthma without complication ([facility]) Morbid obesity with BMI of 40.0-44.9, adult ([facility]) PCOS (polycystic ovarian syndrome) Psychogenic nonepileptic seizure ([facility]) Right otitis media Seizures ([facility]) stressed induced Social History Tobacco Use [...] nursing note reviewed. Exam conducted with a director of web marketing present. Vitals: Estimated body mass index is [...] Zay Blas DO documented in this encounter [facility] 04-01-2024 Miscellaneous Notes Images from the original note were not included. Medication Received: Yesterday April Nicholson [facility] Clinical Staff Hello good afternoon I m [...] see how she was feeling today. Our CHILD NURSE wanted to make sure that she's not having any nausea, vomiting, fever or chills. The patient didn't answer, so I left her a message. documented in this encounter [facility] 04-01-2024 Telephone encounter Note Images from the original note were not included. Medication Received: Yesterday [facility] Clinical Staff Hello good afternoon I m [...] see how she was feeling today. Our CHILD NURSE wanted to make sure that she's not having any nausea, vomiting, fever or chills. The patient didn't answer, so I left her a message. [facility] 04-01-2024 History of Present illness Narrative Dontrell [...] [id number] documented in this encounter [facility] 04-01-2024 Miscellaneous Notes Patient had surgery on [...] Message to Svetlana HERNANDEZ. Oxycodone refilled by Junior ARZOLA to April to let her know. Reminded her of post op restrictions,, medication safety, and alternating with ibuprofen .She states she does not have Ibuprofen. Message to Svetlana to prescribe. Acknowledged understanding She states her mom is now helping her with her sick child. documented in this encounter [facility] 04-01-2024 Telephone encounter Note Patient had surgery [...] pain meds also. Message to Svetlana MALONE [facility] 04-01-2024 Telephone encounter Note Oxycodone refilled by Junior ARZOLA to April to let her know. Reminded her of post op restrictions,, medication safety, and alternating with ibuprofen .She states she does not have Ibuprofen. Message to Svetlana to prescribe. Acknowledged understanding She states her mom is now helping her with her sick child. [facility] 03-25-2024 Instructions Mari Saldaña RN - 03/25/2024 2:15 PM EST Your surgery/procedure is scheduled at [facility] on 03-28-2024 at 9am Arrival Time: 7am [facility] Address: [address] [place] [address] in [address] located on [facility]. Report to the Entrance B. Check in at the information desk the surgery. The waiting room located on the second floor. If you have any questions prior to surgery, please call Pre-Admission Clinic at [phone] between 7:30 am and 4:30 pm Monday through Monday. If you have questions the morning of surgery, please call the Pre-op Department at [phone]. Notify your SURGEON if you develop any [...] piercings ,hair extensions that contain metal, nail american, make-up, and contact lens. You may brush [...] RIGHTS AND RESPONSIBILITIES As a patient at [facility], you have the right to: Receive medical care and be informed of who is taking care of you Be treated with dignity and respect Have a family member/b2b outside sales representative of choice and your physician notified of your admission Receive information and actively participate in decisions about your care and treatment Refuse care, treatment and services Decide who may provide your support and speak for you Access sabianist and spiritual services Participate in ethical issues [...] of hospital charges and payment methods Patient/patient b2b outside sales representative responsibilities are to: Provide information about [...] in clean clothes. documented in this encounter [facility] [employer] [facility] 03-21-2024 Miscellaneous Notes ----- Message from Dr. Mundo Martinez MD sent at 03/21/2024 11:39 AM EST ----- Should be ok ----- Message ----- From: Nicky Zapata Sent: 03/21/2024 9:43 AM EST To: Mundo Martinez MD [facility] and [facility] migraine infusion Vyepti infusion for migranies, during the infusion pt will get Toradol and benadryl, patient has surgery next week and she wants to make sure this infusion is ok to take and will not delay surgery, please advise. Pt was notified of Dr. Martinez response [facility] Telephone encounter Note ----- Message from Dr. Mundo Martinez MD sent at 03/21/2024 11:39 AM EST ----- Should be ok ----- Message ----- From: Nicky Zapata Sent: 03/21/2024 9:43 AM EST To: Mundo Martinez MD Pt [facility] and getting migraine infusion Vyepti infusion for migranies, during the infusion pt will get Toradol and benadryl, patient has surgery next week and she wants to make sure this infusion is ok to take and will not delay surgery, please advise. [facility] 03-21-[facility]24 Telephone encounter Note Pt was notified of Dr. Martinez response [facility] 03-21-2024 Note HNO ID: [id number] Author: SAGAR BARTH APRN.CHILD NURSE Service: ? Author Type: Nurse Practitioner [...] visit. Either the patient or their legal b2b outside sales representative has been informed of the [...] XL, Qudexy) Anti-Depressant and Antipsychotic Amitriptyline (Elavil) [place] (Eskalith, Lithobid) Nortriptyline (Pamelor, Aventyl) Anti-Migraine Dihydroergotamine [...] ZOLMitriptan (ZOMIG) 5 mg nasal sprayUse 1 [place] in the nose as needed at onset [...] by mouth ann (more content not included)... [facility] 03-21-2024 History of Present illness Narrative Images from the original note were not included. [facility] - Follow up Virtual Visit This visit was conducted as a virtual visit, with patient's permission, via Zoom. Patient location - [place] April Nicholson was identified by name and and [...] visit. Either the patient or their legal b2b outside sales representative has been informed of the [...] XL, Qudexy) Anti-Depressant and Antipsychotic Amitriptyline (Elavil) [place] (Eskalith, Lithobid) Nortriptyline (Pamelor, Aventyl) Anti-Migraine Dihydroergotamine [...] ZOLMitriptan (ZOMIG) 5 mg nasal spray^Use 1 [place] in the nose as needed at onset [...] these with the patient: yes Sagar Barth APRN.CHILD NURSE HEADACHE SCORES: 12/05/2023 01/17/2024 03/20/2024 Headache [...] Lymph 1.00 - 4.00 k/uL 0.84 Abs Pinal <0.87 k/uL 0.06 Abs Eosin <0.46 k/uL [...] spontaneous and fluent without dysarthria. Short and halfway memory, cognition and general fund of knowledge [...] XL, Qudexy) Anti-Depressant and Antipsychotic Amitriptyline (Elavil) [place] (Eskalith, Lithobid) Nortriptyline (Pamelor, Aventyl) Blood Pressure [...] 30 minutes Sagar Barth APRN.CNP Headache Section [facility] March 21, 2024 documented in this encounter [facility] 03-20-2024 History of Present illness Narrative Images [...] previously seen pulmonary with Dr. Jason at [facility]. She has been treated with Trelegy 100 [...] hours as needed for wheezing. 06/07/22 Yes ELSIE Luke albuterol (VENTOLIN HFA) 90 mcg/actuation inhaler INHALE [...] as needed (exposure to allergen). 06/07/22 Yes Derik Arthur APRN-WOOD gbwbcffjvvy-eyvynghhf-nnjfwuxo (TRELEGY ELLIPTA) 100-62.5-25 mcg blister with device [...] by mouth in the morning. 06/07/22 Yes ELSIE Luke omeprazole (PriLOSEC) 20 mg capsule Take 1 capsule (20 mg total) by mouth in the morning. 01/27/22 Yes SARAHI Mccall ondansetron ODT (ZOFRAN ODT) 4 mg disintegrating [...] chest is warranted. Dr. Mariah Peña DO. [facility] Pulmonary & Critical Care Office: [phone] [facility] 03-18-2024 History of Present illness Narrative [...] which is why she doesn't go to [place] or [place]. She has had diarrhea for the last [...] lot of steroids. 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 Last hospitalized a couple years ago. Not [...] Asthma BV (bacterial vaginosis) Depression Migraine Seizure ([facility]) Lamictal for non-epileptiform seizure and depression/anxiety [...] anomaly not found LOC (loss of consciousness) ([facility]) Migraine with aura and without status migrainosus, not intractable Bilateral occipital neuralgia Asthma without status asthmaticus Anxiety Depressive disorder Seizure-like activity ([facility]) Simple partial seizure disorder ([facility]) Psychogenic nonepileptic seizure Acute cough Plan: 1. [...] procedures Referring and communicating with other health personal carer (not separately reported) Documenting clinical information in the electronic or other health record Independently interpreting results (not separately reported) and communicating results to the patient/family/caregiver Care coordination (not separately reported) Aliquippa and lamictal, trazodone as needed MUNDO MARTINEZ MD documented in this encounter [facility] 03-06-2024 History of Present illness Narrative Reason [...] in female 12/19/2022 Mixed bipolar I disorder ([facility]) 01/24/2023 Chronic migraine without aura without status migrainosus, not intractable ([facility]) 01/24/2023 Generalized anxiety disorder ([facility]) 01/24/2023 Persistent disorder of initiating or maintaining sleep 01/24/2023 Mild persistent asthma ([facility]) 01/24/2023 Polycystic ovaries 01/24/2023 Psychogenic nonepileptic seizure ([facility]) 01/24/2023 Class 3 severe obesity due to excess calories without serious comorbidity with body mass index (BMI) of 50.0 to 59.9 in adult ([facility]) 03/21/2023 Mild persistent asthma with (acute) exacerbation ([facility]) 10/10/2023 Fatigue 01/01/2024 Encounter for long-term [...] Acute exacerbation of asthma with allergic rhinitis ([facility]) Allergies Asthma ([facility]) At low risk for fall Bipolar affective, mixed (HCC) ([facility]) Change in blood pressure Cholecystitis 2008 Depressive disorder ([facility]) OMID (generalized anxiety disorder) ([facility]) History of hysterectomy 10/01/2021 Insomnia, persistent Migraines ([facility]) Mild persistent asthma without complication ([facility]) Morbid obesity with BMI of 40.0-44.9, adult ([facility]) PCOS (polycystic ovarian syndrome) Right otitis media Seizures ([facility]) HISTORY PAST MEDICAL HISTORY SOCIAL HISTORY Past Medical History: Diagnosis Date Acute exacerbation of asthma with allergic rhinitis ([facility]) Allergies Asthma ([facility]) At low risk for fall Bipolar affective, mixed (HCC) ([facility]) Change in blood pressure high and low Cholecystitis 2008 Chronic migraine without aura without status migrainosus, not intractable ([facility]) Depressive disorder ([facility] OMID (generalized anxiety disorder) ([facility]) History of hysterectomy 10/01/2021 Insomnia, persistent Migraines ([facility]) Mild persistent asthma without complication ([facility]) Morbid obesity with BMI of 40.0-44.9, adult ([facility]) PCOS (polycystic ovarian syndrome) Psychogenic nonepileptic seizure ([facility] Right otitis media Seizures ([facility]) stressed induced Social History Tobacco Use [...] nursing note reviewed. Exam conducted with a director of web marketing present. Vitals: Estimated body mass index is [...] Zay Blas DO documented in this encounter [facility] 02-28-2024 History of Present illness Narrative Reason [...] in female 12/19/2022 Mixed bipolar I disorder ([facility]) 01/24/2023 Chronic migraine without aura without status migrainosus, not intractable ([facility]) 01/24/2023 Generalized anxiety disorder (CMS/HCC) 01/24/2023 Persistent disorder of initiating or maintaining sleep 01/24/2023 Mild persistent asthma ([facility]) 01/24/2023 Polycystic ovaries 01/24/2023 Psychogenic nonepileptic seizure ([facility]) 01/24/2023 Class 3 severe obesity due to excess calories without serious comorbidity with body mass index (BMI) of 50.0 to 59.9 in adult ([facility]) 03/21/2023 Mild persistent asthma with (acute) exacerbation ([facility]) 10/10/2023 Fatigue 01/01/2024 Encounter for long-term [...] Acute exacerbation of asthma with allergic rhinitis ([facility]) Allergies Asthma ([facility]) At low risk for fall Bipolar affective, mixed (HCC) ([facility]) Change in blood pressure Cholecystitis 2008 Depressive disorder ([facility]) OMID (generalized anxiety disorder) ([facility]) History of hysterectomy 10/01/2021 Insomnia, persistent Migraines ([facility]) Mild persistent asthma without complication ([facility]) Morbid obesity with BMI of 40.0-44.9, adult ([facility]) PCOS (polycystic ovarian syndrome) Right otitis media Seizures ([facility]) HISTORY PAST MEDICAL HISTORY SOCIAL HISTORY Past Medical History: Diagnosis Date Acute exacerbation of asthma with allergic rhinitis ([facility]) Allergies Asthma ([facility]) At low risk for fall Bipolar affective, mixed (HCC) ([facility]) Change in blood pressure high and low Cholecystitis 2008 Chronic migraine without aura without status migrainosus, not intractable ([facility]) Depressive disorder ([facility]) OMID (generalized anxiety disorder) ([facility]) History of hysterectomy 10/01/2021 Insomnia, persistent Migraines ([facility]) Mild persistent asthma without complication ([facility]) Morbid obesity with BMI of 40.0-44.9, [...] nursing note reviewed. Exam conducted with a director of web marketing present. Vitals: Estimated body mass index is [...] Zay Blas DO documented in this encounter [facility] 02-26-2024 Telephone encounter Note Pt advised [facility] 02-26-2024 Miscellaneous Notes Pt advised UNABLE TP ACCEPT PT Patients dad tyrone harmon is gma and they are both pts of DB. She wondered if she could become a rnp here with us. And if not db she asked for dominic. Pt does know we are not accepting new patients but asked if I could send this back - was told no on Monday. documented in this encounter [facility] 02-26-2024 Telephone encounter Note UNABLE TP ACCEPT PT [facility] 02-26-2024 Telephone encounter Note Patients dad tyrone harmon is gma and they are both pts of DB. She wondered if she could become a rnp here with us. And if not db she asked for dmoinic. Pt does know we are not accepting new patients but asked if I could send this back - was told no on Monday. [facility] 02-22-2024 Telephone encounter Note Summary: MARY Jordan Images from the original note were not included. Prior Authorization submitted via [employer] on 02/22/2024: Insurance: [place] Medicaid Medication: Zolmitriptan Chong Code: [email or web address] Awaiting Response [facility] 02-22-2024 Miscellaneous Notes Summary: MARY Jordan Images from the original note were not included. Prior Authorization submitted via [employer] on 02/22/2024: Insurance: [place] Medicaid Medication: Zolmitriptan Chong Code: [email or web address] Awaiting Response documented in this encounter [facility] 02-09-2024 History of Present illness Narrative Associated Problem(s): Mild persistent asthma with (acute) exacerbation ([facility]) Recent flare but not able to [...] wo IV contrast documented in this encounter [facility] 01-30-2024 Note Addended by: SAGAR BARTH on: 01/30/2024 02:59 PM Modules accepted: Orders [facility] 01-30-2024 Telephone encounter Note The following approved medication requests have been transmitted electronically. Requested Prescriptions Signed Prescriptions Disp Refills ZOLMitriptan (ZOMIG) 5 mg nasal spray 12 Each 5 Sig: Use 1 [place] in the nose as needed at onset of migraine headache. If symptoms persist or return, may repeat dose in other nostril after 2 hours. Maximum of 2 sprays per 24 hours Authorizing Provider: SAGAR BARTH APRN.CNP [facility] 01-30-2024 Miscellaneous Notes Addended by: SAGAR BARTH on: 01/30/2024 02:59 PM Modules accepted: Orders The following approved medication requests have been transmitted electronically. Requested Prescriptions Signed Prescriptions Disp Refills ZOLMitriptan (ZOMIG) 5 mg nasal spray 12 Each 5 Sig: Use 1 [place] in the nose as needed at onset [...] Each 5 11/10/2023 -- Sig: Use 1 [place] in the nose as needed at onset [...] to verify quantity on zolmitriptan. Callback number: [phone] documented in this encounter [facility] 01-30-2024 Telephone encounter Note Dispense 12 pls. I rewrote the rx. Sagar Barth APRN.CNP [facility] 01-29-2024 Telephone encounter Note Per last Rx on 11/10/2023: Disp Refills Start End ZOLMitriptan (ZOMIG) 5 mg nasal spray 10 Each 5 11/10/2023 -- Sig: Use 1 [place] in the nose as needed at onset of migraine headache. If symptoms persist or return, may repeat dose in other nostril after 2 hours. Maximum of 2 sprays per 24 hours I called the pharmacy and hey need to know if Provider would like to dispense #6 or #12 cartridges. They do not come in 10. Please advise. Thank you [facility] 01-29-2024 Telephone encounter Note Name of Caller: nicky Relationship to patient: pharmacy Last visit in this department: 09/19/2023 Reason for Call: Other : need to verify quantity on zolmitriptan. Callback number: [phone] [facility] 01-23-2024 History of Present illness Narrative Associated Problem(s): SOB (shortness of breath) on exertion Severe symptom and check CXR. Use albuterol PRN and start prednisone. Associated Problem(s): Mild persistent asthma with (acute) exacerbation ([facility]) Continued symptoms and treat with prednisone [...] Visit Mild persistent asthma with (acute) exacerbation ([facility]) - Primary Continued symptoms and treat [...] CBC and differential documented in this encounter [facility] 01-22-2024 Note HNO ID: [id number] Author: GETACHEW CANCINO RN Service: ? Author Type: Registered Nurse Type: Progress Notes Filed: 01/22/2024 15:58 Note Text: Pt in for third day of infusion. Pt rated headache 9/10. Pt has severe nausea and moderate dizziness. Educated pt on medications to be administered. Pt agreed to proceed as ordered. Community Outreach Specialist yes Patient reports she stopped vomiting but [...] via wheelchair to her in the lobby. [facility] 01-22-2024 History of Present illness Narrative Pt in for third day of infusion. Pt rated headache 9/10. Pt has severe nausea and moderate dizziness. Educated pt on medications to be administered. Pt agreed to proceed as ordered. Community Outreach Specialist yes Patient reports she stopped vomiting but [...] moderate nausea. 1553 Pts infusion complete. Headache /. Pt stated moderate nausea and moderate dizziness. Pt discharged from txt room via wheelchair to her in the lobby. documented in this encounter [facility] 01-22-2024 Note HNO ID: [id number] Author: RAIZA MORALES APRN.CHILD NURSE Service: ? Author Type: Nurse Practitioner [...] Lymph 1.00 - 4.00 k/uL 0.84 Abs Pinal <0.87 k/uL 0.06 Abs Eosin <0.46 k/uL [...] ZOLMitriptan (ZOMIG) 5 mg nasal sprayUse 1 [place] in the nose as needed at onset [...] clear, coherent, and relevant. Short and superintendent terminal memory, cognition and general fund of [...] which included p (more content not included)... [facility] 01-22-2024 History of Present illness Narrative [...] Lymph 1.00 - 4.00 k/uL 0.84 Abs Pinal <0.87 k/uL 0.06 Abs Eosin <0.46 k/uL [...] ZOLMitriptan (ZOMIG) 5 mg nasal spray^Use 1 [place] in the nose as needed at onset [...] clear, coherent, and relevant. Short and superintendent terminal memory, cognition and general fund of [...] which included preparing to see the patient, [id number] patient care, completing clinical documentation, and obtaining and/or reviewing separately obtained history. Raiza Morales APRN.CNP Headache Section [facility] January 22, 2024 documented in this encounter [facility] 01-19-2024 Note HNO ID: [id number] Author: GETACHEW CANCINO RN Service: ? Author Type: Registered Nurse Type: Progress Notes Filed: 01/19/2024 11:55 Note Text: Pt in for second day of infusion. Pt rated headache 10/10. Pt has severe nausea and severe dizziness. Educated pt on medications to be administered. Pt agreed to proceed as ordered. Community Outreach Specialist: yes Patient took Valium 10 mg tabl [...] Pt d/c via wheelchair to her in [facility]. Instructed patient and to take caution with ambulating. Patient is feeling sedated. [facility] 01-19-2024 History of Present illness Narrative Pt in for second day of infusion. Pt rated headache 10/10. Pt has severe nausea and severe dizziness. Educated pt on medications to be administered. Pt agreed to proceed as ordered. Community Outreach Specialist: yes Patient took Valium 10 mg tabl [...] Pt d/c via wheelchair to her in [facility]. Instructed patient and to take caution with ambulating. Patient is feeling sedated. documented in this encounter [facility] 01-17-2024 Note HNO ID: [id number] Author: CLAUDIA MAYNARD RN Service: ? Author [...] PRN Zofran given for nausea. 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 [facility] 01-17-2024 History of Present illness Narrative [...] PRN Zofran given for nausea. 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 documented in this encounter [facility] 01-17-2024 Note HNO ID: [id number] Author: ОЛЬГА AGUILAR APRN.CHILD NURSE Service: ? Author Type: Nurse Practitioner Type: Progress Notes Filed: 01/17/2024 07:59 Note Text: Headache Center - Virtual Visit Infusion Triage This visit was conducted as a virtual visit, with patient's permission, via ZOOM. It required patient-provider interaction for the medical decision making as documented below. Patient stated name and Patient location [place], [place] I have communicated my name and active licensure. The patient's identity and physical location were verified at the time of this visit. Either the patient or their legal b2b outside sales representative has been informed of the [...] [place], New health events/diagnosis since last visit (SD/stroke/DM/HTN/etc): [...] Lymph 1.00 - 4.00 k/uL 0.84 Abs Pinal <0.87 k/uL 0.06 Abs Eosin <0.46 k/uL <0.03 Abs Baso <0.11 k/uL <0.03 NRBC /100 WBC 0.0 Analgesic Ketorolac (Toradol) Anti-Convulsant Lamotrigine (Lamictal) Topiramate (Topamax, Trokendi XL, Qudexy) Anti-Depressant and Antipsychotic Amitriptyline (Elavil) Aliquippa (Eskalith, Lithobid) Nortriptyline (Pamelor, Aventyl) Anti-Migraine Dihydroergotamine [...] sprayUse 1 Sp (more content not included)... [facility] 01-16-2024 Telephone encounter Note PAPO: 12/05/2023 with Ольга Aguilar APRN.CHILD NURSE [facility] 01-16-2024 Miscellaneous Notes PAPO: 12/05/2023 with Ольга Aguilar APRN.CHILD NURSE documented in this encounter [facility] 01-09-2024 History of Present illness Narrative Associated [...] 50 MG tablet documented in this encounter [facility] 01-05-2024 Note HNO ID: [id number] Author: LENNIE PALACIOS RN Service: ? Author [...] after Benadryl given. 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 [facility] 01-05-2024 History of Present illness Narrative [...] after Benadryl given. 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 documented in this encounter [facility] 12-05-2023 History of Present illness Narrative Images from the original note were not included. Headache Center - Follow up Virtual Visit Last OV: 08/23/23 Sona Barth APRN Accompanied by: Self This visit was conducted as a virtual visit, with patient's permission, via ZOOM. It required patient-provider interaction for the medical decision making as documented below. Patient stated name and Patient location [place], [place] I have communicated my name and active licensure. The patient's identity and physical location were verified at the time of this visit. Either the patient or their legal b2b outside sales representative has been informed of the [...] (ZOMIG) 5 mg nasal spray Use 1 [place] in the nose as needed at onset [...] these with the patient: yes Ольга Aguilar APRN.CHILD NURSE Studies to Review: No New Health [...] XL, Qudexy) Anti-Depressant and Antipsychotic Amitriptyline (Elavil) [place] (Eskalith, Lithobid) Nortriptyline (Pamelor, Aventyl) Blood Pressure [...] which included preparing to see the patient, [id number] patient care, completing clinical documentation, and counseling and educating the patient/family/caregiver. Ольга Aguilar APRN.FADY documented in this encounter [facility] 12-05-2023 Note HNO ID: [id number] Author: ОЛЬГА AGUILAR APRN.CHILD NURSE Service: ? Author Type: Nurse Practitioner Type: Progress Notes Filed: 12/05/2023 07:28 Note Text: Headache Center - Follow up Virtual Visit Last OV: 08/23/23 Sona Barth APRN Accompanied by: Self This visit was conducted as a virtual visit, with patient's permission, via ZOOM. It required patient-provider interaction for the medical decision making as documented below. Patient stated name and Patient location [place], [place] I have communicated my name and active licensure. The patient's identity and physical location were verified at the time of this visit. Either the patient or their legal b2b outside sales representative has been informed of the [...] (ZOMIG) 5 mg nasal spray Use 1 [place] in the nose as needed at onset [...] 03/22/2023 07/10/2023 1 (more content not included)... [facility] 11-15-2023 History of Present illness Narrative [...] were not included. Subjective Patient ID: Sandie Nichloson is a 28 y.o. female who presents [...] MG per tablet documented in this encounter [facility] 11-10-2023 Telephone encounter Note The following approved medication requests have been transmitted electronically. Requested Prescriptions Signed Prescriptions Disp Refills ZOLMitriptan (ZOMIG) 5 mg nasal spray 10 Each 5 Sig: Use 1 [place] in the nose as needed at onset [...] spasm (migraine). Authorizing Provider: SAGAR BARTH APRN.CNP [facility] 11-10-2023 Miscellaneous Notes The following approved medication requests have been transmitted electronically. Requested Prescriptions Signed Prescriptions Disp Refills ZOLMitriptan (ZOMIG) 5 mg nasal spray 10 Each 5 Sig: Use 1 [place] in the nose as needed at onset [...] spasm (migraine). Authorizing Provider: SAGAR BARTH APRN.CNP patient requesting refill via [employer]. Last OV: 09/19/2023 Future OV: None scheduled Last prescribed: 4 months ago (07/10/2023) by Sagar Barth APRN.CHILD NURSE Requested Prescriptions Pending Prescriptions Disp Refills ZOLMitriptan (ZOMIG) 5 mg nasal spray 10 Each 5 Sig: Use 1 [place] in the nose as needed at onset [...] muscle spasm (migraine). documented in this encounter [facility] 11-10-2023 Telephone encounter Note The following approved medication requests have been transmitted electronically. Requested Prescriptions Signed Prescriptions Disp Refills promethazine (PHENERGAN) 25 mg tablet 90 tablet 5 Sig: Take 1 tablet by mouth every 4 hours as needed. FOR NAUSEA Authorizing Provider: SAGAR BARTH APRN.CNP [facility] 11-10-2023 Miscellaneous Notes The following approved medication [...] FOR NAUSEA Pharmacy Name: [facility] Sh[facility] Gibbs documented in this encounter [facility] 11-10-2023 Telephone encounter Note Physician: Tab Call from patient requesting refill. Please E-Scribe Last office visit 09/19/23 with Green in person Next office visit N/A Requested Prescriptions Pending Prescriptions Disp Refills promethazine (PHENERGAN) 25 mg tablet 90 tablet 1 Sig: Take 1 tablet by mouth every 4 hours as needed. FOR NAUSEA Pharmacy Name: [facility] Shana Gibbs [facility] 11-10-2023 Telephone encounter Note patient requesting refill via Mychart. Last OV: 09/19/2023 Future OV: None scheduled Last prescribed: 4 months ago (07/10/2023) by Sagar Barth APRN.CNP Requested Prescriptions Pending Prescriptions Disp Refills ZOLMitriptan (ZOMIG) 5 mg nasal spray 10 Each 5 Sig: Use 1 [place] in the nose as needed at onset [...] day as needed for muscle spasm (migraine). [facility] 10-13-2023 Note HNO ID: [id number] Author: GETACHEW CANCINO RN Service: ? Author Type: Registered Nurse Type: Progress Notes Filed: 10/13/2023 14:00 Note Text: Pt in for Vyepti infusion. Pt rated headache 8 /10. Pt has severe nausea and mild dizziness. Educated pt on medications to be administered. Pt agreed to proceed as ordered. Community Outreach Specialist: yes Zofran 8 mg IVP given for [...] drive patient home. Patient d/c via wheelchair.. [facility] 10-13-2023 History of Present illness Narrative Pt in for Vyepti infusion. Pt rated headache 8 /10. Pt has severe nausea and mild dizziness. Educated pt on medications to be administered. Pt agreed to proceed as ordered. Community Outreach Specialist: yes Zofran 8 mg IVP given for [...] d/c via wheelchair.. documented in this encounter [facility] 10-10-2023 History of Present illness Narrative Associated Problem(s): Mild persistent asthma with (acute) exacerbation ([facility]) Continued symptoms and treat with prednisone [...] Visit Mild persistent asthma with (acute) exacerbation ([facility]) Continued symptoms and treat with prednisone [...] MG per tablet documented in this encounter [facility] 09-19-2023 History of Present illness Narrative Images [...] XL, Qudexy) Anti-Depressant and Antipsychotic Amitriptyline (Elavil) [place] (Eskalith, Lithobid) Nortriptyline (Pamelor, Aventyl) Anti-Migraine Dihydroergotamine [...] ZOLMitriptan (ZOMIG) 5 mg nasal spray^Use 1 [place] in the nose as needed at onset [...] these with the patient: yes Sagar Barth APRN.CHILD NURSE HEADACHE SCORES: 03/22/2023 07/10/2023 09/19/2023 Headache [...] spontaneous and fluent without dysarthria. Short and superintendent terminal memory, cognition and general fund of [...] XL, Qudexy) Anti-Depressant and Antipsychotic Amitriptyline (Elavil) [place] (Eskalith, Lithobid) Nortriptyline (Pamelor, Aventyl) Blood Pressure [...] which included preparing to see the patient, [id number] patient care, completing clinical documentation, obtaining and/or reviewing separately obtained history, counseling and educating the patient/family/caregiver, ordering medications, tests, or procedures, and care coordination (not separately reported). Sagar Barth APRN.CNP Headache Section [facility] September 19, 2023 documented in this encounter [facility] 09-19-2023 Note HNO ID: [id number] Author: SAGAR BARTH APRN.CNP Service: ? Author Type: Nurse [...] XL, Qudexy) Anti-Depressant and Antipsychotic Amitriptyline (Elavil) [place] (Eskalith, Lithobid) Nortriptyline (Pamelor, Aventyl) Anti-Migraine Dihydroergotamine [...] ZOLMitriptan (ZOMIG) 5 mg nasal sprayUse 1 [place] in the nose as needed at onset [...] these with the patient: yes Sagar Barth APRN.CHILD NURSE HEADACHE SCORES: 03/22/2023 07/10/2023 09/19/2023 Headache [...] of headache after (more content not included)... [facility] 08-18-2023 Instructions Curtis Lepe PA-C - 08/18/2023 2:39 PM EDT You received a greater occipital nerve block (GONB) today You may feel sore tomorrow at the site of the injection. You may use heat or ice for discomfort and gentle stretching. This should resolve in 24-36 hours. Greater Occipital Nerve Block (GONB) Article in [place] Journal By: Molina Barraza MD Many patients with chronic headache report that their pain typically arises from the neck or, more specifically, the base of the skull. Often that pain arises on one side or the other and extends forward to involve the top of the head, the methodist, the forehead, the eye or some combination [...] at least one more try. https://americanheadachesociety. org/wp-content/uploads//O ubqvgfno-Lhzhz-Iwhfpd_Ets-2010.p df documented in this encounter [facility] 08-18-2023 History of Present illness Narrative Images [...] 1 month Curtis Lepe PA-C Headache Section [facility] August 18, 2023 documented in this encounter [facility] 08-18-2023 Note HNO ID: [id number] Author: CURTIS LEPE PA-C Service: ? Author Type: Physician Hide Paster Type: Progress Notes Filed: 08/18/2023 14:39 Note [...] 1 month Curtis Lepe PA-C Headache Section [facility] August 18, 2023 [facility] 08-16-2023 Telephone encounter Note Forwarded to provider for review. PAPO: 07/10/2023 Future OV: 09/19/2023 Encounter from [facility] today 08/16/2023 [facility] 08-16-2023 Miscellaneous Notes Forwarded to provider for review. PAPO: 07/10/2023 Future OV: 09/19/2023 Encounter from [facility] today 08/16/2023 documented in this encounter [facility] 07-10-2023 History of Present illness Narrative Images [...] visit. Either the patient or their legal b2b outside sales representative has been informed of the [...] XL, Qudexy) Anti-Depressant and Antipsychotic Amitriptyline (Elavil) [place] (Eskalith, Lithobid) Nortriptyline (Pamelor, Aventyl) Anti-Migraine Dihydroergotamine [...] ZOLMitriptan (ZOMIG) 5 mg nasal spray^Use 1 [place] in the nose as needed at onset [...] these with the patient: yes Sagar Barth APRN.CHILD NURSE HEADACHE SCORES: 12/12/2022 03/22/2023 07/10/2023 Headache [...] Lymph 1.00 - 4.00 k/uL 0.84 Abs Pinal <0.87 k/uL 0.06 Abs Eosin <0.46 k/uL [...] spontaneous and fluent without dysarthria. Short and halfway memory, cognition and general fund of knowledge [...] XL, Qudexy) Anti-Depressant and Antipsychotic Amitriptyline (Elavil) [place] (Eskalith, Lithobid) Nortriptyline (Pamelor, Aventyl) Blood Pressure [...] (ZOMIG) 5 mg nasal spray Use 1 [place] in the nose as needed at onset [...] Service: Virtual Visit 40 minutes Sagar Barth APRN.CHILD NURSE Headache Section [facility] July 10, 2023 documented in this encounter [facility] 07-10-2023 Note HNO ID: [id number] Author: SAGAR BARTH APRN.FADY Service: ? Author [...] visit. Either the patient or their legal b2b outside sales representative has been informed of the [...] XL, Qudexy) Anti-Depressant and Antipsychotic Amitriptyline (Elavil) [place] (Eskalith, Lithobid) Nortriptyline (Pamelor, Aventyl) Anti-Migraine Dihydroergotamine [...] ZOLMitriptan (ZOMIG) 5 mg nasal sprayUse 1 [place] in the nose as needed at onset [...] these with the patient: yes Sagar Barth APRN.CHILD NURSE HEADACHE SCORES: 12/12/2022 03/22/2023 07/10/2023 Headache Questions ER visits since last office visit: 6 6 8 Hospital stays [facility] (more content not included)... [facility] 06-26-2023 Telephone encounter Note Called Pt to clarify ER visit. States she was seen this morning at [facility] and given a Compazine and steroid shot States she cannot remember the name of steroid that was given. Information passed on to care team. Marc TOMAS RN Clinical Xray Tech [facility] 06-26-2023 Miscellaneous Notes Called Pt to clarify ER visit. States she was seen this morning at [facility] and given a Compazine and steroid shot States she cannot remember the name of steroid that was given. Information passed on to care team. Marc TOMAS RN Clinical Xray Tech [facility] documented in this encounter [facility] 06-26-2023 Telephone encounter Note Forwarded to provider for review. PAPO: 04/14/2023 with Suzan Driver APRN.CHILD NURSE Future OV: None scheduled [facility] 06-26-2023 Miscellaneous Notes Forwarded to provider for review. PAPO: 04/14/2023 with Suzan Driver APRN.CHILD NURSE Future OV: None scheduled MyChart message sent to patient to gain more information in regards to patient's migraine. documented in this encounter [facility] 06-26-2023 Telephone encounter Note MyChart message sent to patient to gain more information in regards to patient's migraine. [facility] 04-14-2023 Instructions Suzan Driver APRN.CHILD NURSE - 04/14/2023 10:49 AM EST Follow [...] refilled without delays. 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 Short and halfway memory, cognition and general fund of knowledge [...] which included preparing to see the patient, [id number] patient care, completing clinical documentation, obtaining and/or reviewing separately obtained history, performing a medically appropriate examination, counseling and educating the patient/family/caregiver, and ordering medications, tests, or procedures. Suzan Driver APRN.CNP Headache Section [facility] documented in this encounter [facility] 04-14-2023 Note HNO ID: [id number] Author: SUZAN DRIVER APRN.CNP Service: ? 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 Short and superintendent terminal memory, cognition and general fund of [...] which included preparing to see the patient, [id number] patient care, completing clinical documentation, obtaining and/or reviewing separately obtained history, performing a medically appropriate examination, counseling and educating the patient/family/caregiver, and ordering medications, tests, or procedures. Suzan Driver, UMANG.CHILD NURSE Headache Section [facility] 04-14-2023 Note HNO ID: [id number] Author: INOCENCIO NAIR RN Service: ? Author Type: Registered Nurse Type: Progress Notes Filed: 04/14/2023 11:51 Note Text: Pt in for 3rd day of infusion. Pt rated headache 6/10. Pt has severe nausea and moderate dizziness. Educated pt on medications to be administered. Pt agreed to proceed as ordered. 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 @0915: Patient tearful and c/o PIV site burning and very painful. No infiltration or redness of site noted, Ice-pack placed over PIV site. After a few minutes pt reported the ice-pack did not help and wanted PIV to be removed. PIV site removed. Patient remained very anxious and tearful, and requesting if anything else can be given for anxiety. [facility] INDUSTRIAL MAINTENANCE REPAIRER HELPER notified. New PIV site started, 2nd dose of Benadryl given for anxiety. 2nd line: Compazine given for severe nausea. [facility] INDUSTRIAL MAINTENANCE REPAIRER HELPER to hold Periactin today as the two doses of Benadryl and Compazine can cause drowsiness. Pts infusion complete, tolerated infusion. Headache 4/10. Pt stated no nausea and moderate dizziness. PIV site removed. Pt discharged from txt room at 1124 via wheelchair to ride in [place]. [facility] 04-14-2023 History of Present illness Narrative Pt in for 3rd day of infusion. Pt rated headache 6/10. Pt has severe nausea and moderate dizziness. Educated pt on medications to be administered. Pt agreed to proceed as ordered. 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 @0915: Patient tearful and c/o PIV site burning and very painful. No infiltration or redness of site noted, Ice-pack placed over PIV site. After a few minutes pt reported the ice-pack did not help and wanted PIV to be removed. PIV site removed. Patient remained very anxious and tearful, and requesting if anything else can be given for anxiety. [facility] INDUSTRIAL MAINTENANCE REPAIRER HELPER notified. New PIV site started, 2nd dose of Benadryl given for anxiety. 2nd line: Compazine given for severe nausea. Per [facility] INDUSTRIAL MAINTENANCE REPAIRER HELPER to hold Periactin today as the two doses of Benadryl and Compazine can cause drowsiness. Pts infusion complete, tolerated infusion. Headache 4/10. Pt stated no nausea and moderate dizziness. PIV site removed. Pt discharged from txt room at 1124 via wheelchair to ride in lobby. documented in this encounter [facility] 04-13-2023 Note HNO ID: [id number] Author: GETACHEW CANCINO RN Service: ? Author [...] She is working with a psychiatrist in [place] . Voiced stress is her biggest trigger [...] D/c via wheel chair to her in [place]. [facility] 04-13-2023 History of Present illness Narrative [...] She is working with a psychiatrist in [place] . Voiced stress is her biggest trigger for headaches. 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 I mentioned to patient our reboot program . Patient very interested to learn about it. Message send to our scheduler maintenance and Rhian Lim to set up patient for evaluation. 1020 Patient sleeping on and off. Nausea subsiding. Patient declined Zofran. Stated Zofran ineffective. 1050 Infusion complete. Patient slept on and off. Nausea resolved. PINEDA 6/10. Patient verbal , appears sedated . D/c via wheel chair to her in lobby. documented in this encounter [facility] 04-13-2023 Miscellaneous Notes Patient is currently receiving infusions for headache. She is interested in learning about reboot program. Please schedule for evaluation. 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 Short and superintendent terminal memory, cognition and general fund of [...] which included preparing to see the patient, bgqu-qg-czam patient care, completing clinical documentation, obtaining and/or reviewing separately obtained history, performing a medically appropriate examination, counseling and educating the patient/family/caregiver, and ordering medications, tests, or procedures. Suzan Driver APRN.CNP Headache Section [facility] documented in this encounter [facility] 04-12-2023 Note HNO ID: [id number] Author: SUZAN DRIVER APRN.CNP Service: ? 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 Short and halfway memory, cognition and general fund of knowledge [...] which included preparing to see the patient, fqgn-ob-coia patient care, completing clinical documentation, obtaining and/or reviewing separately obtained history, performing a medically appropriate examination, counseling and educating the patient/family/caregiver, and ordering medications, tests, or procedures. Suzan Driver, UMANG.CHILD NURSE Headache Section [facility] 04-12-2023 Note HNO ID: [id number] Author: SUZAN JEFF RN Service: ? Author [...] vs oral periactin for sedation. Rhina Driver NP updated and agreeable. PIV started on [...] dizziness. Pt discharged from treatment room with forklift driver via wheelchair due to effects from oral medications. [facility] 04-12-2023 History of Present illness Narrative 1105 Patient in for first day of IV infusions. Patient rated headache 8/10. Patient stated severe nausea and mild dizziness. Patient educated on medications to be administered. Patient verbalized understanding and agreed to proceed with infusions. Patient requested the PRN IV Benadryl vs oral periactin for sedation. Rhina Driver INDUSTRIAL MAINTENANCE REPAIRER HELPER updated and agreeable. PIV started on 3rd [...] dizziness. Pt discharged from treatment room with forklift driver via wheelchair due to effects from oral medications. documented in this encounter [facility] 04-12-2023 Instructions Suzan Driver APRN.CHILD NURSE - 04/12/2023 11:52 AM EST General [...] much light. These can be obtained at [employer] or [employer]: see list below. 2. Limit use of acute treatments (olzr-rcj-gkjilyf medications, triptans, etc.) to no more than [...] and quiet environment. Relax and reduce stress. Ggmpird7Dshub is a free juan a that can instruct you on some simple relaxtion and breathing techniques. Http://Collax is a free website that provides teaching [...] ensuing treatment plans will be released via [employer] and discussed during your follow-up appointment. Follow-up appointments are primarily provided by the Nurse Practitioners and Physician s Assistants in order to provide timely, accessible care. [employer]: Please ask the schedulers to give you an activation code. The main way of communication is by marinanowt rather than phone lines, so if you have not signed up, please do so. marinanowt is also the way that you can review your labs and testing. We are not able to contact everyone to tell them results are normal. If you do not hear back from us regarding testing you have had, it should be considered normal or within normal range. If you have any questions about the results, you are free to message us. [employer] is meant for simple questions regarding medications, possible side effects, or other simple straight forward questions in limited sentences, rather than multiple paragraphs of discussion. [employer] is not meant for, or efficient for these complex questions, extensive questions, extensive medication adjustments, complex new symptoms or concerns. These issues beyond simple questions require a follow up visit with myself, one of our physician assistants, nurse practitioners, or a Virtual Visit via computer or smart phone, as detailed further down. Please contact [employer] if you are having issues with [employer] or logging in to your virtual visit appointment. You can reach them at [phone] Refills: Please pay attention to when your [...] pepperoni, Pickled reynoso Pods of broad carmona (Occitan beans, Welsh pea pods, Niuean (jc) beans, frazier and navy beans Ripe [...] convincingly provoke headaches. documented in this encounter [facility] 04-03-2023 Miscellaneous Notes Ambulatory Pharmacy Prior Authorization Note Provider Intervention Required?: No- Pharmacy completed on your behalf. Rx Plan: Medicaid [facility] ([facility]) Drug: Aimovig 70MG/ML auto-injectors Cover My Meds Chong: [id number] Determination: Approved Prior Authorization/Case #: n/a Prior [...] refills. Prescriptions will now be processed through [facility] for determination of next steps. For questions relating to this submission, please contact [facility] at [phone] [facility] received prescription(s) for Aimovig 70MG/ML auto-injectors . Benefits investigation was conducted, indicating that a prior authorization is required. PA was initiated and pending review through [employer]. All pertinent clinical information was submitted to insurance. CMM Chong: [id number] Ordering Provider: aSgar Barth APRN.Angely Schaefer RN [facility] P: , F: documented in this encounter [facility] 03-23-2023 Note HNO ID: [id number] Author: SAGAR BARTH APRN.FADY Service: ? Author [...] visit. Either the patient or their legal b2b outside sales representative has been informed of the [...] XL, Qudexy) Anti-Depressant and Antipsychotic Amitriptyline (Elavil) [place]qu[place]a (Eskalith, Lithobid) Nortriptyline (Pamelor, Aventyl) Anti-Migraine Dihydroergotamine [...] ZOLMitriptan (ZOMIG) 5 mg nasal sprayUse 1 [place] in the nose as needed at onset [...] Rfl: lamoTRIgine (LAMICTAL) (more content not included)... [facility] 12-13-2022 Miscellaneous Notes Images from the original note were not included. Called patient to schedule for 3 days of Non DHE IV infusions. She started she was currently driving and would call back to schedule Sagar Barth APRN.CHILD NURSE P Headache Infusion Scheduling Pool; P C21 Botox Pool Pls schedule for infusions, and also her next botox treatment - thank you. KG documented in this encounter [facility] 12-13-2022 Miscellaneous Notes PA submitted through [employer] for Orphenadrine Citrate ER 100mg. Chong Code: [id number] documented in this encounter [facility] 12-09-2022 Miscellaneous Notes Patient would also like [...] Name: Emory Reilly documented in this encounter [facility] 11-11-2022 History of Present illness Narrative April [...] d/c since symptoms have resolved. Suzan Driver APRN.CHILD NURSE 0824: Patient in for first day of IV infusions. Patient rated headache 8/10. Patient stated severe nausea and severe dizziness. Patient educated on medications to be administered. Patient verbalized understanding and agreed to proceed with infusions. She does have a forklift driver. She would like PRN benadryl for [...] with it. Message sent to Suzan Driver INDUSTRIAL MAINTENANCE REPAIRER HELPER to update. Benadryl hypersensitivity released and administered. Pt also very nauseated. PRN zofran administered. 1050: Pt fell back asleep. Woke pt up and she she stated relief from all itching. Denies any other symptoms/side effects at this time. Pts infusions complete. Pt rated headache 7/10. Pt stated mild nausea and denied dizziness. 1055: Suzan Driver INDUSTRIAL MAINTENANCE REPAIRER HELPER in txt room to see patient. 1105: Pt discharged from treatment room via wheelchair due to drowsiness to her significant other. 1110: When cleaning chair after pt left, white pill found in chair. Tablet identified as baclofen. During initial assessment, after reviewing home medication list, pt denied any other medications missing from the list. Baclofen not listed on home medication list. Suzan Driver INDUSTRIAL MAINTENANCE REPAIRER HELPER notified. documented in this encounter [facility] 11-10-2022 History of Present illness Narrative Images from the original note were not included. Headache Center - Virtual Visit Infusion Triage This visit was conducted as a virtual visit, with patient's permission, via ZOOM. It required patient-provider interaction for the medical decision making as documented below. Patient stated name and Patient location [place] I have communicated my name and active licensure. The patient's identity and physical location were verified at the time of this visit. Either the patient or their legal b2b outside sales representative has been informed of the [...] Lymph 1.00 - 4.00 k/uL 0.84 (L) Pinal% % 0.7 Abs Pinal <0.87 k/uL 0.06 Eosin% % 0.1 Abs [...] 2.7 TSH 0.270 - 4.200 mIU/L 0.537 Aliquippa 0.6 - 1.2 mmol/L 0.1 (L) Analgesic Ketorolac (Toradol) Anti-Convulsant Lamotrigine (Lamictal) Topiramate (Topamax, Trokendi XL, Qudexy) Anti-Depressant and Antipsychotic Amitriptyline (Elavil) [place]qu[place]a (Eskalith, Lithobid) Nortriptyline (Pamelor, Aventyl) Anti-Migraine Dihydroergotamine [...] ZOLMitriptan (ZOMIG) 5 mg nasal spray^Use 1 [place] in the nose as needed at onset [...] these with the patient: yes Ольга Aguilar APRN.CHILD NURSE HEADACHE SCORES: Headache Questions 06/24/2022 08/31/2022 [...] rate, volume and articulation. Short and superintendent terminal memory, cognition and general fund of [...] 25 minutes Ольга Aguilar APRN.CNP Headache Section [facility] November 10, 2022 documented in this encounter [facility] 11-10-2022 Miscellaneous Notes PATIENT SCHEDULED FOR TRIAGE [...] get infusions scheduled. Number to return call [phone] Okay to leave a message ? Yes Last office visit 10/12/22 with [facility] Next office visit Not scheduled. Thank you calling [facility]. You will receive a return call within 48 hours ( or 2 business days if close to the weekend). If you feel that this is an urgent issue and needs immediate attention, it is recommended that you contact your primary care provider office or proceed to your nearest Urgent Care Center of Emergency Room ED for evaluation/treatment. documented in this encounter [facility] 10-06-2022 Miscellaneous Notes Ambulatory Pharmacy Prior Authorization Note Provider Intervention Required?: No- Pharmacy completed on your behalf. Rx Plan: Medicaid [facility] ([facility]) Drug: Zomig 5MG nasal spray Cover My Meds Chong: [id number] Determination: Approved Prior Authorization/Case #: n/a Prior [...] refills. Prescriptions will now be processed through [facility] for determination of next steps. For questions relating to this submission, please contact [facility] at [phone] [facility] received prescription(s) for Zomig 5MG nasal spray . Benefits investigation was conducted, indicating that a prior authorization is required. PA was initiated and pending review through [employer]. All pertinent clinical information was submitted to insurance. CMM Chong: [id number] Ordering Provider: Sagar Barth APRN.CHILD NURSE Angely Cotton RN [facility] P: , F: documented in this encounter [facility] 09-28-2022 Miscellaneous Notes Patient last seen on 09/12/22. documented in this encounter [facility] 08-31-2022 History of Present illness Narrative Headache Center - Follow up Virtual Visit During this ID- pandemic, patient's headache clinic evaluation was scheduled as a virtual visit using the following platform Zoom - patient currently located in [facility] [place] was identified by name and and consented [...] visit. Either the patient or their legal b2b outside sales representative has been informed of the [...] She has been seeing one of the INDUSTRIAL MAINTENANCE REPAIRER HELPER's. It sounds like the plan is Emgality and Zomig nasal spray but it has been 2 months and she still hasn't heard about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 wound check Yeast infection [facility] Diagnosis Abdominal wall cellulitis- Primary Postoperative surgical complication involving genitourinary system associated with genitourinary procedure, unspecified complication Postoperative surgical complication involving genitourinary system associated with genitourinary procedure [facility] Diagnosis Acute right flank pain- Primary Mild persistent asthma without complication (CMS/HCC) Morbid obesity ([facility]/H[facility]) Morbid obesity Body mass index [BMI] 45.0-49.9, adult (Z68.42) Acute bronchitis due to other specified organisms- Primary Mild persistent asthma with (acute) exacerbation ([facility] [facility] Acute bronchitis due to other specified organisms- Primary Mixed bipolar I disorder ([facility]) Bipolar I disorder, most recent episode (or current) mixed, unspecified Mild persistent asthma without complication ([facility])- Primary Class 3 severe obesity due to excess calories without serious comorbidity with body mass index (BMI) of 50.0 to 59.9 in adult ([facility]) Fatigue, unspecified type Mixed bipolar I disorder ([facility]) Bipolar I disorder, most recent episode (or current) mixed, unspecified Chronic migraine without aura without status migrainosus, not intractable ([facility]) Pain, dental Mild persistent asthma with (acute) exacerbation ([facility])- Primary Generalized edema Edema SOB (shortness of breath) on exertion Shortness of breath Generalized abdominal pain- Primary Abdominal pain, generalized Intractable nausea and vomiting Mild persistent asthma with (acute) exacerbation ([facility]) Well woman exam with routine gynecological exam Routine gynecological examination [facility] Postoperative surgical complication involving genitourinary system associated with genitourinary procedure, unspecified complication- Primary Post-op pain Other acute postoperative pain Sweating profusely Generalized hyperhidrosis Menopausal symptoms Symptomatic menopausal or female climacteric states Nausea and vomiting, unspecified vomiting type [facility] Diagnosis Post-operative pain- Primary Other acute postoperative pain [facility] Diagnosis Muscle spasm- Primary Spasm of muscle Fatigue due to depression Nausea and vomiting, unspecified vomiting type Mild persistent asthma without status asthmaticus without complication Psychogenic nonepileptic seizure [facility] Diagnosis Postoperative surgical complication involving genitourinary system associated with genitourinary procedure, unspecified complication [facility] Diagnosis Postoperative surgical complication involving genitourinary system associated with genitourinary procedure, unspecified complication [facility] Diagnosis Moderate persistent asthma, unspecified whether complicated [facility] Diagnosis Postoperative infection, unspecified type, subsequent encounter- Primary [facility] Diagnosis Chronic migraine without aura, with [...] migrainosus documented in this encounter [facility] Discharge instructionsNot on filedocumented in this encounterProMedica [...] SystemInstructionsNot on filedocumented in this encounterProMedica Health SystemReason for referral (narrative)* Outpatient Procedure (Routine) - Pending Review Specialty Diagnoses / Procedures Referred By Sushma veloz Referred To Contact [facility] Diagnoses Seizure-like activity (HCC) Procedures EPIL EEG LEAD PLACEMENT EEG EXTENDED MONITORING 61-119 MINUTES ELECTROENCEPHALOGRAM REC COMA/SLEEP ONLY Geri Madera, MANAGER DIALYSIS.[facility] [address] [place] [address] [facility] [address] [place] [address] Referral ID Status Reason Start Date Expiration Date Visits Requested Visits Authorized [id number] Pending Review Auto-Generat ed Referral 10/26/2021 10/26/2022 1 1 [facility] for referral (narrative)* Outpatient Procedure (Routine) - Pending Review Specialty Diagnoses / Procedures Referred By Contac t Referred To [facility] [place] Diagnoses Psychogenic nonepileptic seizure Spells of trembling Procedures EPIL AMBULATORY EEG EEG COMPLETE STD PHYS/QHP&GT;84 HR W/O Tyrone Diaz MD, PhD [address] [address] [place] [address] Referral ID Status Reason Start Date Expiration Date Visits Requested Visits Authorized [id number] Pending Review Auto-Generat ed Referral 10/29/2021 10/29/2022 1 1 * Outpatient Procedure (Routine) - Pending Review Specialty Diagnoses / Procedures Referred By Contac t Referred To Contact [facility] Diagnoses Psychogenic nonepileptic seizure Spells of trembling Procedures EPIL AMBULATORY EEG EEG COMPLETE STD PHYS/QHP&GT;84 HR W/O Tyrone Diaz MD, PhD [address] [place] [address] [address] [place] [address] [place] [address] Referral ID Status Reason Start Date Expiration Date Visits Requested Visits Authorized [id number] Pending Review Auto-Generat ed Referral 10/29/2021 10/29/2022 1 1 * Consult, Test, Treat (Routine) - Authorized Specialty Diagnoses / Procedures Referred By Contac t Referred To Contact Diagnoses Chronic intractable headache, unspecified headache type Procedures CONSULT TO HEADACHE CLINIC OFFICE/OUTPATIENT NEW HIGH MDM 60-74 MINUTES Tyrone Dolan MD, PhD [address] [facility] [address] [place] [address] Referral ID Status Reason Start Date Expiration Date Visits Requested Visits Authorized [id number] Authorized PCP Requested Referral 10/29/2021 10/29/2022 1 1 [facility] for referral (narrative)* Outpatient Procedure (Routine) - Pending Review Specialty Diagnoses / Procedures Referred By Contac t Ref[facility] Diagnoses Seizure-like activity (HCC) Procedures EPIL EEG ROUTINE ELECTROENCEPHALOGRAM REC COMA/SLEEP ONLY Nelly Saldaña PA-C [address] [facility] [address] [place] [address] [facility] [address] [place] [address] Referral ID Status Reason Start Date Expiration Date Visits Requested Visits Authorized [id number] Pending Review Auto-Generat ed Referral 11/08/2021 11/08/2022 1 1 [facility] for referral (narrative)* Misc (Routine) - Pending Review Specialty Diagnoses / Procedures Referred By Contac t Referred To Contact Procedures Discharge Follow-Up George Michelle MD Maria Eugenia [address] [address] Phone: tel: fax: Referral ID Status Reason Start Date Expiration Date V isits Requested Visits Authorized [id number] Pending Review 04/10/2024 04/10/2025 1 1 * Misc (Routine) - Pending Review Specialty Diagnoses / Procedures Referred By Contac t Referred To Contact Procedures Hygiene George Michelle MD [address], [address] [place] [address] Phone: tel: fax: Referral ID Status Reason Start Date Expiration Date V isits Requested Visits Authorized [id number] Pending Review 04/10/2024 04/10/2025 1 1 [facility] Advance Directives Documents on File Type Date 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 ACP-Advance Directive ACP-Power of Dispatcher [employer] Latest Code Status on File Code Status [...] t Referred To Contact Jesse Borrego MD [address] [place] [address] Referral ID Status Reason Start Date Expiration Date Visits Re quested Visits Authorized [id number] Closed 1 1 Specialty Diagnoses / Procedures Referred By Contac t Referred To Contact Diagnoses Intractable chronic migraine without aura and with status migrainosus Intractable chronic migraine without aura and without status migrainosus Procedures PROVIDER ORDERED FOLLOW UP OFFICE/OUTPATIENT [facility] MDM 60 MINUTES Suzan Driver APRN.CHILD NURSE [address] [place] [address] Referral ID Status Reason Start Date Expiration Date Visits Requested Visits Authorized [id number] Authorized PCP Requested Referral 07/13/2023 04/13/2024 1 1 Specialty Diagnoses / Procedures Referred By Contac t Referred To Contact Diagnoses Intractable chronic migraine without aura and without status migrainosus Procedures PROVIDER ORDERED FOLLOW UP OFFICE/OUTPATIENT [facility] 60 MINUTES Sagar Barth APRN.CHILD NURSE [address] [place] [address] Referral ID Status Reason Start Date Expiration Date Visits Requested Visits Authorized [id number] Authorized PCP Requested Referral 10/10/2023 07/09/2024 1 1 Specialty Diagnoses / Procedures Referred By Contac t Referred To Contact Sagar Barth APRN.CHILD NURSE [address] [place] [address] Referral ID Status Reason Start Date Expiration Date V isits Requested Visits Authorized [id number] Authorized 07/10/2023 09/22/2023 1 1 Specialty Diagnoses / Procedures Referred By Contac t Referred To Contact Psychology Diagnoses Psychogenic nonepileptic seizure Procedures CONSULT TO PSYCHOLOGY OFFICE/OUTPATIENT [facility] 60 MINUTES Curtis Lepe PA-C [address] [place] [address] Referral ID Status Reason Start Date Expiration Date Visits Requested Visits Authorized [id number] Pending Review PCP Requested Referral 08/18/2023 08/17/2024 1 1 Additional Source Comments Source Comments (unrecognize d section and content) In the event this informatio n is protected by the Federal Confidentiality of Alcohol and Drug Abuse Patient Records regulations: The Federal rules restrict any use of the information to criminally investigate or prosecute any alcohol or drug abuse patient.[facility] the event this information is protected by the Federal Confidentiality of Alcohol and Drug Abuse Patient Records regulations: The Federal rules restrict any use of the information to criminally investigate or prosecute any alcohol or drug abuse patient.[facility] GeneralIn the event this information is protected by the Federal Confidentiality of Alcohol and Drug Abuse Patient Records regulations: The Federal rules restrict any use of the information to criminally investigate or prosecute any alcohol or drug abuse patient.[facility] GeneralIn the event this information is protected by the Federal Confidentiality of Alcohol and Drug Abuse Patient Records regulations: The Federal rules restrict any use of the information to criminally investigate or prosecute any alcohol or drug abuse patient.[facility] GeneralIn the event this information is protected by the Federal Confidentiality of Alcohol and Drug Abuse Patient Records regulations: The Federal rules restrict any use of the information to criminally investigate or prosecute any alcohol or drug abuse patient.[facility] GeneralIn the event this information is protected by the Federal Confidentiality of Alcohol and Drug Abuse Patient Records regulations: The Federal rules restrict any use of the information to criminally investigate or prosecute any alcohol or drug abuse patient.[facility] GeneralIn the event this information is protected by the Federal Confidentiality of Alcohol and Drug Abuse Patient Records regulations: The Federal rules restrict any use of the information to criminally investigate or prosecute any alcohol or drug abuse patient.[facility] GeneralIn the event this information is protected by the Federal Confidentiality of Alcohol and Drug Abuse Patient Records regulations: The Federal rules restrict any use of the information to criminally investigate or prosecute any alcohol or drug abuse patient.[facility] GeneralIn the event this information is protected by the Federal Confidentiality of Alcohol and Drug Abuse Patient Records regulations: The Federal rules restrict any use of the information to criminally investigate or prosecute any alcohol or drug abuse patient.[facility] GeneralIn the event this information is protected by the Federal Confidentiality of Alcohol and Drug Abuse Patient Records regulations: The Federal rules restrict any use of the information to criminally investigate or prosecute any alcohol or drug abuse patient.[facility] GeneralIn the event this information is protected by the Federal Confidentiality of Alcohol and Drug Abuse Patient Records regulations: The Federal rules restrict any use of the information to criminally investigate or prosecute any alcohol or drug abuse patient.[facility] GeneralIn the event this information is protected by the Federal Confidentiality of Alcohol and Drug Abuse Patient Records regulations: The Federal rules restrict any use of the information to criminally investigate or prosecute any alcohol or drug abuse patient.[facility] GeneralIn the event this information is protected by the Federal Confidentiality of Alcohol and Drug Abuse Patient Records regulations: The Federal rules restrict any use of the information to criminally investigate or prosecute any alcohol or drug abuse patient.[facility] GeneralIn the event this information is protected by the Federal Confidentiality of Alcohol and Drug Abuse Patient Records regulations: The Federal rules restrict any use of the information to criminally investigate or prosecute any alcohol or drug abuse patient.[facility] GeneralIn the event this information is protected by the Federal Confidentiality of Alcohol and Drug Abuse Patient Records regulations: The Federal rules restrict any use of the information to criminally investigate or prosecute any alcohol or drug abuse patient.[facility] GeneralIn the event this information is protected by the Federal Confidentiality of Alcohol and Drug Abuse Patient Records regulations: The Federal rules restrict any use of the information to criminally investigate or prosecute any alcohol or drug abuse patient.[facility] GeneralIn the event this information is protected by the Federal Confidentiality of Alcohol and Drug Abuse Patient Records regulations: The Federal rules restrict any use of the information to criminally investigate or prosecute any alcohol or drug abuse patient.[facility] GeneralIn the event this information is protected by the Federal Confidentiality of Alcohol and Drug Abuse Patient Records regulations: The Federal rules restrict any use of the information to criminally investigate or prosecute any alcohol or drug abuse patient.[facility] GeneralIn the event this information is protected by the Federal Confidentiality of Alcohol and Drug Abuse Patient Records regulations: The Federal rules restrict any use of the information to criminally investigate or prosecute any alcohol or drug abuse patient.[facility] GeneralIn the event this information is protected by the Federal Confidentiality of Alcohol and Drug Abuse Patient Records regulations: The Federal rules restrict any use of the information to criminally investigate or prosecute any alcohol or drug abuse patient.[facility] GeneralIn the event this information is protected by the Federal Confidentiality of Alcohol and Drug Abuse Patient Records regulations: The Federal rules restrict any use of the information to criminally investigate or prosecute any alcohol or drug abuse patient.[facility] GeneralIn the event this information is protected by the Federal Confidentiality of Alcohol and Drug Abuse Patient Records regulations: The Federal rules restrict any use of the information to criminally investigate or prosecute any alcohol or drug abuse patient.[facility] GeneralIn the event this information is protected by the Federal Confidentiality of Alcohol and Drug Abuse Patient Records regulations: The Federal rules restrict any use of the information to criminally investigate or prosecute any alcohol or drug abuse patient.[facility]In the event this information is protected by the Federal Confidentiality of Alcohol and Drug Abuse Patient Records regulations: The Federal rules restrict any use of the information to criminally investigate or prosecute any alcohol or drug abuse patient.[facility] GeneralIn the event this information is protected by the Federal Confidentiality of Alcohol and Drug Abuse Patient Records regulations: The Federal rules restrict any use of the information to criminally investigate or prosecute any alcohol or drug abuse patient.[facility]In the event this information is protected by the Federal Confidentiality of Alcohol and Drug Abuse Patient Records regulations: The Federal rules restrict any use of the information to criminally investigate or prosecute any alcohol or drug abuse patient.[facility] GeneralIn the event this information is protected by the Federal Confidentiality of Alcohol and Drug Abuse Patient Records regulations: The Federal rules restrict any use of the information to criminally investigate or prosecute any alcohol or drug abuse patient.[facility]In the event this information is protected by the Federal Confidentiality of Alcohol and Drug Abuse Patient Records regulations: The Federal rules restrict any use of the information to criminally investigate or prosecute any alcohol or drug abuse patient.[facility]In the event this information is protected by the Federal Confidentiality of Alcohol and Drug Abuse Patient Records regulations: The Federal rules restrict any use of the information to criminally investigate or prosecute any alcohol or drug abuse patient.[facility] GeneralIn the event this information is protected by the Federal Confidentiality of Alcohol and Drug Abuse Patient Records regulations: The Federal rules restrict any use of the information to criminally investigate or prosecute any alcohol or drug abuse patient.[facility]In the event this information is protected by the Federal Confidentiality of Alcohol and Drug Abuse Patient Records regulations: The Federal rules restrict any use of the information to criminally investigate or prosecute any alcohol or drug abuse patient.[facility] GeneralIn the event this information is protected by the Federal Confidentiality of Alcohol and Drug Abuse Patient Records regulations: The Federal rules restrict any use of the information to criminally investigate or prosecute any alcohol or drug abuse patient.[facility]In the event this information is protected by the Federal Confidentiality of Alcohol and Drug Abuse Patient Records regulations: The Federal rules restrict any use of the information to criminally investigate or prosecute any alcohol or drug abuse patient.[facility] GeneralIn the event this information is protected by the Federal Confidentiality of Alcohol and Drug Abuse Patient Records regulations: The Federal rules restrict any use of the information to criminally investigate or prosecute any alcohol or drug abuse patient.[facility] GeneralIn the event this information is protected by the Federal Confidentiality of Alcohol and Drug Abuse Patient Records regulations: The Federal rules restrict any use of the information to criminally investigate or prosecute any alcohol or drug abuse patient.[facility] GeneralIn the event this information is protected by the Federal Confidentiality of Alcohol and Drug Abuse Patient Records regulations: The Federal rules restrict any use of the information to criminally investigate or prosecute any alcohol or drug abuse patient.[facility] GeneralIn the event this information is protected by the Federal Confidentiality of Alcohol and Drug Abuse Patient Records regulations: The Federal rules restrict any use of the information to criminally investigate or prosecute any alcohol or drug abuse patient.[facility] GeneralIn the event this information is protected by the Federal Confidentiality of Alcohol and Drug Abuse Patient Records regulations: The Federal rules restrict any use of the information to criminally investigate or prosecute any alcohol or drug abuse patient.[facility] GeneralIn the event this information is protected by the Federal Confidentiality of Alcohol and Drug Abuse Patient Records regulations: The Federal rules restrict any use of the information to criminally investigate or prosecute any alcohol or drug abuse patient.[facility] GeneralIn the event this information is protected by the Federal Confidentiality of Alcohol and Drug Abuse Patient Records regulations: The Federal rules restrict any use of the information to criminally investigate or prosecute any alcohol or drug abuse patient.[facility] GeneralIn the event this information is protected by the Federal Confidentiality of Alcohol and Drug Abuse Patient Records regulations: The Federal rules restrict any use of the information to criminally investigate or prosecute any alcohol or drug abuse patient.[facility] GeneralIn the event this information is protected by the Federal Confidentiality of Alcohol and Drug Abuse Patient Records regulations: The Federal rules restrict any use of the information to criminally investigate or prosecute any alcohol or drug abuse patient.[facility]In the event this information is protected by the Federal Confidentiality of Alcohol and Drug Abuse Patient Records regulations: The Federal rules restrict any use of the information to criminally investigate or prosecute any alcohol or drug abuse patient.[facility] GeneralIn the event this information is protected by the Federal Confidentiality of Alcohol and Drug Abuse Patient Records regulations: The Federal rules restrict any use of the information to criminally investigate or prosecute any alcohol or drug abuse patient.[facility]In the event this information is protected by the Federal Confidentiality of Alcohol and Drug Abuse Patient Records regulations: The Federal rules restrict any use of the information to criminally investigate or prosecute any alcohol or drug abuse patient.[facility] GeneralIn the event this information is protected by the Federal Confidentiality of Alcohol and Drug Abuse Patient Records regulations: The Federal rules restrict any use of the information to criminally investigate or prosecute any alcohol or drug abuse patient.[facility]In the event this information is protected by the Federal Confidentiality of Alcohol and Drug Abuse Patient Records regulations: The Federal rules restrict any use of the information to criminally investigate or prosecute any alcohol or drug abuse patient.[facility]In the event this information is protected by the Federal Confidentiality of Alcohol and Drug Abuse Patient Records regulations: The Federal rules restrict any use of the information to criminally investigate or prosecute any alcohol or drug abuse patient.[facility] GeneralIn the event this information is protected by the Federal Confidentiality of Alcohol and Drug Abuse Patient Records regulations: The Federal rules restrict any use of the information to criminally investigate or prosecute any alcohol or drug abuse patient.[facility]In the event this information is protected by the Federal Confidentiality of Alcohol and Drug Abuse Patient Records regulations: The Federal rules restrict any use of the information to criminally investigate or prosecute any alcohol or drug abuse patient.[facility] GeneralIn the event this information is protected by the Federal Confidentiality of Alcohol and Drug Abuse Patient Records regulations: The Federal rules restrict any use of the information to criminally investigate or prosecute any alcohol or drug abuse patient.[facility]In the event this information is protected by the Federal Confidentiality of Alcohol and Drug Abuse Patient Records regulations: The Federal rules restrict any use of the information to criminally investigate or prosecute any alcohol or drug abuse patient.[facility] General[facility] the event this information is protected by the Federal Confidentiality of Alcohol and Drug Abuse Patient Records regulations: The Federal rules restrict any use of the information to criminally investigate or prosecute any alcohol or drug abuse patient.[facility] GeneralIn the event this information is protected by the Federal Confidentiality of Alcohol and Drug Abuse Patient Records regulations: The Federal rules restrict any use of the information to criminally investigate or prosecute any alcohol or drug abuse patient.[facility] GeneralIn the event this information is protected by the Federal Confidentiality of Alcohol and Drug Abuse Patient Records regulations: The Federal rules restrict any use of the information to criminally investigate or prosecute any alcohol or drug abuse patient.[facility] GeneralIn the event this information is protected by the Federal Confidentiality of Alcohol and Drug Abuse Patient Records regulations: The Federal rules restrict any use of the information to criminally investigate or prosecute any alcohol or drug abuse patient.[facility] GeneralIn the event this information is protected by the Federal Confidentiality of Alcohol and Drug Abuse Patient Records regulations: The Federal rules restrict any use of the information to criminally investigate or prosecute any alcohol or drug abuse patient.[facility] Reason for Visit (unrecogniz ed section and content) Reason Comments Headache Infusion Specialty Diagnoses / Procedures Referred By Contac t Referred To Contact Diagnoses Intractable chronic migraine without aura and without status migrainosus Procedures INJECTION, EPTINEZUMAB-JJMR, 1 MG Sagar Barth, UMANG.CHILD NURSE [address] [place] [address] Phone: tel: fax: Neurology [address] [place] [address] Phone: tel: fax: Referral ID Status Reason Start Date Expiration Date V isits Requested Visits Authorized [id number] Authorized 09/20/2023 09/25/2024 5 5 Reason Comments Infusion Headache Specialty Diagnoses / Procedures Referred By Contac t Referred To Contact Neurology / HEADACHE Diagnoses NON-DHE #1 Procedures INFUSION HEADACHE Suzan Driver, MANAGER DIALYSIS.CHILD NURSE [address] [place] [address] Neur Headache Main S[address] [place] [address] Referral ID Status Reason Start Date Expiration Date V isits Requested Visits Authorized [id number] Authorized 04/12/2023 02/20/2024 99 99 Reason Comments Migraine Specialty Diagnoses / Procedures Referred By Contac t Referred To Contact Diagnoses Intractable chronic migraine without aura and without status migrainosus Procedures PROVIDER ORDERED FOLLOW UP OFFICE/OUTPATIENT [facility] MDM 60 MINUTES Sagar Barth APRN.CHILD NURSE [address] [place] [address] Referral ID Status Reason Start Date Expiration Date V isits Requested Visits Authorized [id number] Closed PCP Requested Referral 10/10/2023 07/09/2024 1 1 Specialty Diagnoses / Procedures Referred By Contac t Referred To Contact Diagnoses Intractable chronic migraine without aura and without status migrainosus Procedures INJECTION, EPTINEZUMAB-JJMR, 1 MG Sagar Barth APRN.CHILD NURSE [address] [place] [address] Neur Headache Main [address] [place] [id number] Referral ID Status Reason Start Date Expiration Date V isits Requested Visits Authorized [id number] Authorized 09/20/2023 03/22/2024 2 2 Reason Comments Nerve Block Specialty Diagnoses / Procedures Referred By Contac t Referred To Contact Neurology / HEADACHE Diagnoses NON-DHE #1 Procedures INFUSION HEADACHE Suzan Driver APRN.CHILD NURSE [address] [place] [address] Neur Headache Main [address] [place] [id number] Reason Comments Headache Infusion Reason Comments Future Appointment [place], Any Reason Comments Migraine seen at [facility] yest erday for Migrane and D & [...] INFUSION HEADACHE Abdifatah Brady MD [address] [place] [address] Neur Headache Main [address] [place] [address] Referral ID Status Reason Start Date Expiration Date Visits Re quested Visits Authorized [id number] Closed 07/28/2022 09/26/2022 1 1 Reason Comments Chronic Migraine Reason Comments Chronic Migraine Reason Comments Insurance Authorization Zomig 5MG nasal spray Reason Comments Infusion Specialty Diagnoses / Procedures Referred By Contac t Referred To Contact Neurology / HEADACHE Diagnoses POSSIBLE DHE/WAITING FOR ORDERS Procedures INFUSION HEADACHE Self Neur Headache Main [address] [place] [id number] Referral ID Status Reason Start Date Expiration Date V isits Requested Visits Authorized [id number] Authorized 11/10/2022 02/08/2023 1 99 Reason Onset [...] GREATER OCCIPITAL NERVE NERVE BLOCK Sagar Barth, MANAGER DIALYSIS.CHILD NURSE [address] [place] [address] Tyrone Dolan MD, PhD [address] [facility] [address] [place] [address] Referral ID Status Reason Start Date Expiration Date Visits Re quested Visits Authorized [id number] Closed 08/28/2023 02/20/2024 1 1 Reason Onset Date Comments Refill Request 11/10/2023 Specialty Diagnoses / Procedures Referred By Contac t Referred To Contact Diagnoses Intractable chronic migraine without aura and without status migrainosus Procedures INJECTION, EPTINEZUMAB-JJ, 1 MG Sagar Barth, MANAGER DIALYSIS.CHILD NURSE [address] [place] [address] Neur Headache Main S[address] [place] [address] Reason Comments Fatigue Dizzy, shaky, very t [...] denies Specialty Diagnoses / Procedures Referred By Contselena t Referred To Contact Pulmonary Medicine Diagnoses Bilateral ovarian cysts Moderate asthma with acute exacerbation, unspecified whether persistent Encounter for preoperative pulmonary examination Mundo Martinez MD [address] [address] [place] [address] Phone: tel: fax: Jefry Hills MD [address], [address] [address] Phone: tel: fax: Referral ID Status Reason Start Date Expiration Date Visits Requested Visits Authorized [id number] Pending Review Specialty Services Required 03/20/2024 03/20/2025 1 1 Reason Comments Wound Check Reason Comments Flu Symptoms Abdominal Pain Specialty Diagnoses / Procedures Referred By Contac t Referred To Contact Diagnoses Sepsis ([facility]) Abdominal wall cellulitis [facility] - Emergency Department [address] [place] [address] Phone: tel: fax: Referral ID Status Reason Start Date Expiration Date Visits Re quested Visits Authorized [id number] 1 1 Reason Comments Well Women Visit Reason Comments Post-op 2 week post-op Reason Comments Establish Care Specialty Diagnoses / Procedures Referred By Sushma veloz Referred To Contact Diagnoses Intractable chronic migraine without aura and without status migrainosus Procedures INJECTION, EPTINEZUMAB-JJMR, 1 MG Sagar Barth APRN.CHILD NURSE [address] [place] [address] Phone: tel: fax: Neurology [address] [place] [address] Phone: tel: fax: Referral ID Status Reason Start Date Expiration Date V isits Requested Visits Authorized [id number] Authorized 09/20/2023 09/25/2024 5 5 Scheduled Active and Recently Administ ered Medications [...] Fredi Lowe RN)2136 (Given - Provider: Corby Bojorquez, PRATIBHA) 0828 (Given - Provider: Effie Keene RN) [...] Look-alike/sound-alike medication - verify indication for use. 1639 (Given - Provider: Lillie Antonio RN) ketorolac [...] Look-alike/sound-alike medication - verify indication for use. 2217 (Given - Provider: Lo Peres RN) 1018 (Given - Provider: Fredi Lowe, PRATIBHA)2136 (Given - Provider: Corby Bojorquez, PRATIBHA) 0828 (Given - Provider: Effie Keene RN) lidocaine PF (XYLOCAINE) 10 mg/mL (1 %) injection 100 mg 100 mg (10 mL), infiltration, Once, On Mon04/08/24 at 1650, For 1 dose 1650 (Not Given - Provider: Lillie Antonio RN - Reason: Other - Comment: no longer needed per OBGYN) lidocaine-EPINEPHrine (XYLOCAINE W/EPI) 1 %-1:[id number] injection 30 mL (COMPLETED) 30 mL, intradermal, [...] feeding tube 2217 (Given - Provider: Lo Peres, RN) 2136 (Given - Provider: Corby Bojorquez [...] minutes. 1416 (Given - Provider: Lillie Antonio, RN) piperacillin-tazobactam (ZOSYN) 4.5 g in sodium chloride [...] dose 1415 (New Bag - Provider: Lillie Antonio RN)1446 (Stop Bag - Provider: Lillie Antonio RN) traZODone (DESYREL) tablet 300 mg 300 mg, oral, Nightly, First dose on Mon04/09/24 at 0100, Look-alike/sound-alike medication - verify indication for use. 0117 (Given - Provider: Lo Peres RN)213 (Given - Provider: Corby Bojorquez, PRATIBHA) vancomycin (VANCOCIN) IVPB 1250 mg/250 mL in 0.9% sodium chloride (premix) (CANCELED) 1,250 mg, intravenous, at 167 mL/hr, Administer over 90 Minutes, Every 8 hours, First dose on Mon04/09/24 at 1030, VESICANT (YELLOW), Indication: Other, Specify: peritonitis 1215 (New Bag - Provider: Fredi Lowe RN)1345 (Stop Bag - Provider: Fredi Lowe RN)2133 (New Bag - Provider: Corby Bojorquez, PRATIBHA)2303 (Stop Bag - Provider: Corby Bojorquez, PRATIBHA) 0440 (New Bag - Provider: Corby Bojorquez, PRATIBHA)0610 (Stop Bag - Provider: Corby Bojorquez, PRATIBHA) vancomycin (VANCOCIN) IVPB 2000 mg/500 mL in 0.9% sodium chloride (premix) (COMPLETED) 2,000 mg (rounded from 2,140 mg = 20 mg/kg 107 kg Order-specific weight), intravenous, at 250 mL/hr, Administer over 120 Minutes, Once, On Mon04/08/24 at 1615, For 1 dose, VESICANT (YELLOW), Indication: Uncomplicated skin and soft tissue infection 1848 (New Bag - Provider: Fredi Lowe RN)213 (Stop Bag - Provider: Lo Peres RN) [...] RN) 001 (Given - Provider: Lo Peres RN)1008 (Given - Provider: Fredi Lowe RN)1516 (Given - Provider: Fredi Lowe, PRATIBHA)2115 (Given - Provider: Corby Bojorquez, PRATIBHA) ibuprofen (MOTRIN) tablet 800 mg 800 mg, [...] dose, VESICANT (RED) 1525 (Given - Provider: SEVERINO Pérez) iohexoL (OMNIPAQUE) 300 mg iodine/mL 30 mL [...] Fredi Lowe RN)2218 (Given - Provider: Lo Peres RN) 0203 (Given - Provider: Lo Peres, RN)0704 (Given - Provider: Lo Peres RN) oxyCODONE (ROXICODONE) immediate release tablet 5 mg 5 mg, oral, Every 4 hours PRN, severe pain - pain scale 7-10, Starting on Mon04/09/24 at 1549, Look-alike/sound-alike medication - verify indication for use. Immediate release. 1848 (Given - Provider: Fredi Lowe RN) 0832 (Given - Provider: Effie Keene RN)1502 (Given - Provider: Effie Keene RN) sodium [...] content) DATE CREATED AUTHOR 12/26/2020 Maggie Espinal [facility] DATE CREATED AUTHOR AUTHOR'S ORGANIZ ATION 10/25/2021 [facility] DATE CREATED AUTHOR AUTHOR'S ORGANIZ ATION 05/26/2022 [facility] DATE CREATED AUTHOR AUTHOR'S ORGANIZ ATION 08/02/2022 [facility] DATE CREATED AUTHOR AUTHOR'S ORGANIZ ATION 03/23/2024 [facility] DATE CREATED AUTHOR AUTHOR'S ORGANIZ ATION 04/17/2024 [facility] DATE CREATED AUTHOR AUTHOR'S ORGANIZ ATION 04/30/2024 [facility] y[facility] Ordered Prescriptions (unrec ognized section and content) Prescription Sig Dispensed Refills Start Date End Da te lamoTRIgine (LAMICTAL) 25 MG tablet Take 2 tablets by mouth daily 30 tablet 3 10/21/2021 Care Teams (unrecognized sec tion and content) Circular Knife Machine Cutter Relationship Specialty Start Date End Date Derik Arthur, MANAGER DIALYSIS - CHILD NURSE [address] [place] [address] PCP - General Nurse Practitioner 12/24/20 Circular Knife Machine Cutter Relationship Specialty Start Date End Date Hoy, Abdifatah M (Historical) PCP - General 05/21/13 Circular Knife Machine Cutter Relationship Specialty Start Date End Date Hoy, Abdifatah M (Historical) PCP - General 05/21/13 Circular Knife Machine Cutter Relationship Specialty Start Date End Date Hoy, Abdifatah M (Historical) PCP - General 05/21/13 Circular Knife Machine Cutter Relationship Specialty Start Date End Date Hoy, Abdifatah M (Historical) PCP - General 05/21/13 Circular Knife Machine Cutter Relationship Specialty Start Date End Date Hoy, Abdifatah M (Historical) PCP - General 05/21/13 Circular Knife Machine Cutter Relationship Specialty Start Date End Date Hoy, Abdifatah M (Historical) PCP - General 05/21/13 Circular Knife Machine Cutter Relationship Specialty Start Date End Date Hoy, Abdifatah M (Historical) PCP - General 05/21/13 Circular Knife Machine Cutter Relationship Specialty Start Date End Date Hoy, Abdifatah M (Historical) PCP - General 05/21/13 Circular Knife Machine Cutter Relationship Specialty Start Date End Date Hoy, Abdifatah M (Historical) PCP - General 05/21/13 Circular Knife Machine Cutter Relationship Specialty Start Date End Date Hoy, Abdifatah M (Historical) PCP - General 05/21/13 Circular Knife Machine Cutter Relationship Specialty Start Date End Date Hoy, Abdifatah M (Historical) PCP - General 05/21/13 Circular Knife Machine Cutter Relationship Specialty Start Date End Date Hoy, Abdifatah M (Historical) PCP - General 05/21/13 Circular Knife Machine Cutter Relationship Specialty Start Date End Date Hoy, Abdifatah M (Historical) PCP - General 05/21/13 Circular Knife Machine Cutter Relationship Specialty Start Date End Date Hoy, Abdifatah M (Historical) PCP - General 05/21/13 Circular Knife Machine Cutter Relationship Specialty Start Date End Date Hoy, Abdifatah M (Historical) PCP - General 05/21/13 Circular Knife Machine Cutter Relationship Specialty Start Date End Date Hoy, Abdifatah M (Historical) PCP - General 05/21/13 Circular Knife Machine Cutter Relationship Specialty Start Date End Date Hoy, Abdifatah M (Historical) PCP - General 05/21/13 Circular Knife Machine Cutter Relationship Specialty Start Date End Date Hoy, Abdifatah M (Historical) PCP - General 05/21/13 Circular Knife Machine Cutter Relationship Specialty Start Date End Date Hoy, Abdifatah M (Historical) PCP - General 05/21/13 Circular Knife Machine Cutter Relationship Specialty Start Date End Date Hoy, Abdifatah M (Historical) PCP - General 05/21/13 Circular Knife Machine Cutter Relationship Specialty Start Date End Date Hoy, Abdifatah M (Historical) PCP - General 05/21/13 Circular Knife Machine Cutter Relationship Specialty Start Date End Date Hoy, Abdifatah M (Historical) PCP - General 05/21/13 Circular Knife Machine Cutter Relationship Specialty Start Date End Date Hoy, Abdifatah M (Historical) PCP - General 05/21/13 Circular Knife Machine Cutter Relationship Specialty Start Date End Date Hoy, Abdifatah M (Historical) PCP - General 05/21/13 Circular Knife Machine Cutter Relationship Specialty Start Date End Date Hoy, Abdifatah M (Historical) PCP - General 05/21/13 Circular Knife Machine Cutter Relationship Specialty Start Date End Date Hoy, Abdifatah M (Historical) PCP - General 05/21/13 Circular Knife Machine Cutter Relationship Specialty Start Date End Date Hoy, Abdifatah M (Historical) PCP - General 05/21/13 Circular Knife Machine Cutter Relationship Specialty Start Date End Date Hoy, Abdifatah M (Historical) PCP - General 05/21/13 Circular Knife Machine Cutter Relationship Specialty Start Date End Date Hoy, Abdifatah M (Historical) PCP - General 05/21/13 Circular Knife Machine Cutter Relationship Specialty Start Date End Date Hoy, Abdifatah M (Historical) PCP - General 05/21/13 Circular Knife Machine Cutter Relationship Specialty Start Date End Date Hoy, Abdifatah M (Historical) PCP - General 05/21/13 Circular Knife Machine Cutter Relationship Specialty Start Date End Date Hoy, Abdifatah M (Historical) PCP - General 05/21/13 Circular Knife Machine Cutter Relationship Specialty Start Date End Date Hoy, Abdifatah M (Historical) PCP - General 05/21/13 Circular Knife Machine Cutter Relationship Specialty Start Date End Date Hoy, Abdifatah M (Historical) PCP - General 05/21/13 Circular Knife Machine Cutter Relationship Specialty Start Date End Date Lamont Shay MD [address] [place] [address] PCP - General Family Medicine 03/14/23 Circular Knife Machine Cutter Relationship Specialty Start Date End Date Abdifatah Brady (Historical) PCP - General 05/21/13 Circular Knife Machine Cutter Relationship Specialty Start Date End Date Lamont Shay MD [address] [place] [address] [place] [address] PCP - General Family Medicine 03/14/23 Circular Knife Machine Cutter Relationship Specialty Start Date End Date Lamont Shay MD [address] [place] [address] [place] [address] PCP - General Family Medicine 03/14/23 Circular Knife Machine Cutter Relationship Specialty Start Date End Date Abdifatah Brady (Historical) PCP - General 05/21/13 Circular Knife Machine Cutter Relationship Specialty Start Date End Date Abdifatah Brady (Historical) PCP - General 05/21/13 Circular Knife Machine Cutter Relationship Specialty Start Date End Date Lamont Shay MD [address] [place] [address] [place] [address] PCP - General Family Medicine 03/14/23 Circular Knife Machine Cutter Relationship Specialty Start Date End Date Abdifatah Brady (Historical) PCP - General 05/21/13 Circular Knife Machine Cutter Relationship Specialty Start Date End Date Lamont Shay MD [address] [place] [address] PCP - General Family Medicine 03/14/23 Circular Knife Machine Cutter Relationship Specialty Start Date End Date Lamont Shay MD [address] [place] [address] PCP - General Family Medicine 03/14/23 Circular Knife Machine Cutter Relationship Specialty Start Date End Date Lamont Shay MD [address] [place] [address] PCP - General Family Medicine 03/14/23 Circular Knife Machine Cutter Relationship Specialty Start Date End Date Lamont Shay MD [address] [place] [address] PCP - General Family Medicine 03/14/23 Circular Knife Machine Cutter Relationship Specialty Start Date End Date Lamont Shay MD [address] [place] [address] PCP - General Family Medicine 03/14/23 Circular Knife Machine Cutter Relationship Specialty Start Date End Date Lamont Shay MD [address] [place] [address] PCP - General Family Medicine 03/14/23 Circular Knife Machine Cutter Relationship Specialty Start Date End Date Lamont Shay MD [address] [place] [address] PCP - General Family Medicine 03/14/23 Circular Knife Machine Cutter Relationship Specialty Start Date End Date Lamont Shay MD [address] [place] [address] PCP - General Family Medicine 03/14/23 Circular Knife Machine Cutter Relationship Specialty Start Date End Date Lamont Shay MD [address] [place] [address] PCP - General Family Medicine 03/14/23 Circular Knife Machine Cutter Relationship Specialty Start Date End Date Lamont Shay MD [address] [place] [address] PCP - General Family Medicine 03/14/23 Circular Knife Machine Cutter Relationship Specialty Start Date End Date Lamont Shay MD [address] [place] [address] PCP - General Family Medicine 03/14/23 Circular Knife Machine Cutter Relationship Specialty Start Date End Date Lamont Shay MD [address] [place] [address] PCP - General Family Medicine 03/14/23 Circular Knife Machine Cutter Relationship Specialty Start Date End Date Lamont Shay MD [address] [place] [address] PCP - General Family Medicine 03/14/23 Circular Knife Machine Cutter Relationship Specialty Start Date End Date Lamont Shay MD [address] [place] [address] PCP - General Family Medicine 03/14/23 Circular Knife Machine Cutter Relationship Specialty Start Date End Date Lamont Shay MD PCP - General Family Medicine 06/22/22 Circular Knife Machine Cutter Relationship Specialty Start Date End Date Lamont Shay MD PCP - General Family Medicine 06/22/22 Circular Knife Machine Cutter Relationship Specialty Start Date End Date Lamont Shay MD PCP - General Family Medicine 06/22/22 Circular Knife Machine Cutter Relationship Specialty Start Date End Date Lamont Shay MD PCP - General Family Medicine 06/22/22 Circular Knife Machine Cutter Relationship Specialty Start Date End Date Lamont Shay MD PCP - General Family Medicine 06/22/22 Circular Knife Machine Cutter Relationship Specialty Start Date End Date Lamont Shay MD PCP - General Family Medicine 06/22/22 Circular Knife Machine Cutter Relationship Specialty Start Date End Date Corine Gold MD [address], [place] [address] PCP - General Internal Medicine 03/25/24 Circular Knife Machine Cutter Relationship Specialty Start Date End Date Corine Gold MD [address], [place] [address] PCP - General Internal Medicine 03/25/24 Circular Knife Machine Cutter Relationship Specialty Start Date End Date Corine Gold MD [address], [place] [address] PCP - General Internal Medicine 03/25/24 Circular Knife Machine Cutter Relationship Specialty Start Date End Date Corine Gold MD [address], [place] [address] PCP - General Internal Medicine 03/25/24 Circular Knife Machine Cutter Relationship Specialty Start Date End Date Lamont Shay MD [facility] [place] [address] [place] [address] PCP - General Family Medicine 03/14/23 Circular Knife Machine Cutter Relationship Specialty Start Date End Date Corine Gold MD [address] [place] [address] PCP - General Internal Medicine 03/25/24 Circular Knife Machine Cutter Relationship Specialty Start Date End Date Lamont Shay MD [address] [place] [address] PCP - General Family Medicine 03/14/23 Circular Knife Machine Cutter Relationship Specialty Start Date End Date Lamont Shay MD [address] [place] [address] PCP - General Family Medicine 03/14/23 Circular Knife Machine Cutter Relationship Specialty Start Date End Date Corine Gold MD [address] [place] [address] PCP - General Internal Medicine 03/25/24 Circular Knife Machine Cutter Relationship Specialty Start Date End Date Corine Gold MD [address] [place] [address] PCP - General Internal Medicine 03/25/24 Circular Knife Machine Cutter Relationship Specialty Start Date End Date Corine Gold MD [address] [place] [address] PCP - General Internal Medicine 03/25/24 Circular Knife Machine Cutter Relationship Specialty Start Date End Date Corine Gold MD [address] [place] [address] PCP - General Internal Medicine 03/25/24 Circular Knife Machine Cutter Relationship Specialty Start Date End Date Corine Gold MD [address] [place] [address] PCP - General Internal Medicine 03/25/24 Circular Knife Machine Cutter Relationship Specialty Start Date End Date Corine Gold MD [address] [place] [address] PCP - General Internal Medicine 03/25/24 Circular Knife Machine Cutter Relationship Specialty Start Date End Date Corine Gold MD [address] [place] [address] PCP - General Internal Medicine 03/25/24 Circular Knife Machine Cutter Relationship Specialty Start Date End Date Corine Gold MD [address] [place] [address] PCP - General Internal Medicine 03/25/24 Circular Knife Machine Cutter Relationship Specialty Start Date End Date Corine Gold MD [address] [place] [address] PCP - General Internal Medicine 03/25/24 Circular Knife Machine Cutter Relationship Specialty Start Date End Date Corine Gold MD [address] [place] [address] PCP - General Internal Medicine 03/25/24 Inactive [...] BE BASED ON THE PRIMARY CLINICAL RECORDS. [facility]. provides no warranty or guarantee of the accuracy or completeness of information in this document.
--- NOTE | 2024-05-04 00:01 | ED_ITS ---
HPI HPI - General Adult General Chief complaint: Headache Stated complaint: SEIZURE Time Seen by Provider: 05/03/24 23:52 Source: patient and family Mode of arrival: Wheelchair Limitations: no limitations History of Present Illness HPI narrative: 28-year-old female presents for headache. It is her whole head and there is been no trauma fever or stiff neck. This is just like her migraine headaches in the past. She states it started yesterday. She received an infusion in [place] for her chronic headaches and then she had a reaction so she had to go to the emergency department and she was treated there. She still has a headache. It is severe and continuous. Related Data Home Medications ?Medication ?Instructions ?Recorded ?Confirmed baclofen 10 mg tablet 10 mg PO TID PRN spasms 07/20/22 04/20/24 diazepam 10 mg tablet 5 mg PO QID PRN seizures 07/20/22 04/20/24 epinephrine 0.3 mg/0.3 mL 0.3 mg IM Q10M PRN anaphylaxis 07/20/22 04/20/24 injection, auto-injector diphenhydramine HCl 25 mg capsule 75 mg PO Q6H PRN migraine headache 01/26/23 04/20/24 (Benadryl) trazodone 300 mg tablet 300 mg PO .qhs 03/03/23 04/20/24 lithium carbonate 300 mg tablet 600 mg PO Q12H 04/27/23 04/20/24 albuterol sulfate 90 mcg/actuation 2 puff inhalation Q4H PRN 08/16/23 04/20/24 aerosol inhaler shortness of breath or wheezing lamotrigine 150 mg tablet 150 mg PO BID 08/16/23 04/20/24 magnesium oxide 400 mg (241.3 mg 400 mg PO .qhs 08/16/23 04/20/24 magnesium) tablet promethazine 12.5 mg tablet 12.5 mg PO Q6H PRN nausea and 08/16/23 04/20/24 vomiting vilazodone 40 mg tablet 40 mg PO DAILY 08/16/23 04/20/24 zolmitriptan 5 mg nasal spray 1 spray intranasal Q2H PRN headache 08/16/23 04/20/24 Previous Rx's ?Medication ?Instructions ?Recorded ketorolac 10 mg tablet 10 mg PO Q8H PRN pain 2 days #6 05/13/23 tabs nabumetone 750 mg tablet 750 mg PO BID PRN pain #14 tabs 04/20/24 Allergies Allergy/AdvReac Type Severity Reaction Status Date / Time dihydroergotamine Allergy Unknown Hives Verified 04/07/24 13:39 vortioxetine Allergy Unknown Hives Verified 04/07/24 13:39 buspirone Allergy Hives Verified 04/07/24 13:39 carbamazepine Allergy Unknown Verified 04/07/24 13:39 levetiracetam (From Keppra) Allergy ITCHING Verified 04/07/24 13:39 azithromycin (From Zithromax) AdvReac Intermediate Hives Verified 04/07/24 13:39 bee venom protein (honey bee) AdvReac Intermediate Hives Verified 04/07/24 13:39 metoclopramide (From Reglan) AdvReac Intermediate panic Verified 04/07/24 13:39 adhesive tape AdvReac Mild Rash Verified 04/07/24 13:39 cephalexin (From Keflex) AdvReac Mild Hives Verified 04/07/24 13:39 dextromethorphan (From AdvReac Mild Unknown Verified 04/07/24 13:39 [place] DM) pyrilamine (From [place] DM) AdvReac Mild Unknown Verified 04/07/24 13:39 prochlorperazine (From AdvReac Anxiety Verified 04/07/24 13:39 Compazine) propranolol AdvReac Hives Verified 04/07/24 13:39 Opioid HPI Opioid Management Most Recent Opioid Data: Last Pain Scale 10 05/03/24 23:45 05/03/24 Last ORT Total Score 0 08/16/23 14:51 08/16/23 Last ORT Risk Category Low Risk 08/16/23 14:51 08/16/23 Ur Phencyclidine Scrn Negative (NEGATIVE) 08/16/23 15:15 07/22 08/13 Review of Systems ROS Narrative A ten point review of systems is negative except as noted above. [facility] Medical History (Updated 05/04/24 @ 01:15 by Wild Kendall MD) Chronic pain disorder ?G89.4 - Chronic pain syndrome (ICD-10) Migraine ?G43.909 - Migraine, unspecified, not intractable, without status migrainosus (ICD-10) Seizure disorder ?G40.909 - Epilepsy, unspecified, not intractable, without status epilepticus (ICD-10) Bipolar disorder ?F31.9 - Bipolar disorder, unspecified (ICD-10) Pelvic pain ?R10.2 - Pelvic and perineal pain (ICD-10) Bilateral occipital neuralgia ?M54.81 - Occipital neuralgia (ICD-10) Combative behavior ?R46.89 - Other symptoms and signs involving appearance and behavior (ICD-10) PCOS (polycystic ovarian syndrome) ?E28.2 - Polycystic ovarian syndrome (ICD-10) Mitral valve prolapse ?I34.1 - Nonrheumatic mitral (valve) prolapse (ICD-10) GERD (gastroesophageal reflux disease) ?K21.9 - Gastro-esophageal reflux disease without esophagitis (ICD-10) Depression ?F32.A - Depression, unspecified (ICD-10) Blood in urine ?R31.9 - Hematuria, unspecified (ICD-10) Acne ?L70.9 - Acne, unspecified (ICD-10) Dyspareunia Brain mass ?G93.89 - Other specified disorders of brain (ICD-10) Kidney stones ?N20.0 - Calculus of kidney (ICD-10) COVID-19 ?U07.1 - COVID-19 (ICD-10) Bronchitis ?J40 - Bronchitis, not specified as acute or chronic (ICD-10) Asthma ?J45.909 - Unspecified asthma, uncomplicated (ICD-10) Stress incontinence ?N39.3 - Stress incontinence (female) (male) (ICD-10) Dysuria ?R30.0 - Dysuria (ICD-10) Anxiety ?F41.9 - Anxiety disorder, unspecified (ICD-10) Surgical History H/O laparoscopy (07/21/22) ?Z98.890 - Other specified postprocedural states (ICD-10) S/P RAVI-BSO ?Z90.710 - Acquired absence of both cervix and uterus (ICD-10) ?Z90.722 - Acquired absence of ovaries, bilateral (ICD-10) ?Z90.79 - Acquired absence of other genital organ(s) (ICD-10) Hx laparoscopic cholecystectomy ?Z90.49 - Acquired absence of other specified parts of digestive tract (ICD- 10) H/O: ?Z98.891 - History of uterine scar from previous surgery (ICD-10) History of appendectomy ?Z90.49 - Acquired absence of other specified parts of digestive tract (ICD- 10) Family History Other Acid reflux Acute renal disease Afib Chromosomal disorder Delayed developmental milestones Diabetes Family history of hypertension High cholesterol Neuro-irritability due to autonomic dysfunction 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 General: The patient appears in no apparent distress. Patient appears uncomfortable Skin: Warm, dry, no pallor noted. There is no rash noted. Head: Normocephalic, atraumatic; neck supple Eye: Normal conjunctiva, no drainage Ears, Nose, Mouth, and Throat: oral mucosa is moist. Nares patent. Cardiovascular: Regular Rate and Rhythm Respiratory: Patient is in no distress, no accessory muscle use, lungs are clear to auscultation, no wheezing, rales or rhonchi Back: non-tender GI: Obese and nondistended Musculoskeletal: The patient has no evidence of calf tenderness, no pitting edema, symmetrical pulses noted bilaterally Neurological: A&O, normal speech Psychiatric: Cooperative Constitutional Vital Signs, click to edit/add: Last Vital Signs Temp 97.9 F 05/03/24 23:33 Pulse 67 05/03/24 23:33 Resp 14 05/03/24 23:33 BP 142/92 H 05/03/24 23:33 Pulse Ox 97 05/03/24 23:33 O2 Del Method Room Air 05/03/24 23:33 Course Vital Signs Vital signs: Vital Signs Temperature 97.9 F 05/03/24 23:33 Pulse Rate 67 05/03/24 23:33 Respiratory Rate 14 05/03/24 23:33 Blood Pressure 142/92 H 05/03/24 23:33 Pulse Oximetry 97 05/03/24 23:33 Oxygen Delivery Method Room Air 05/03/24 23:33 Temperature 97.9 F 05/03/24 23:33 Pulse Rate 67 05/03/24 23:33 Respiratory Rate 14 05/03/24 23:33 Blood Pressure 142/92 H 05/03/24 23:33 Pulse Oximetry 97 05/03/24 23:33 Oxygen Delivery Method Room Air 05/03/24 23:33 Medical Decision Making MDM Narrative Medical decision making narrative: Medications were ordered but she did not stay and she walked out without completing her treatment. She is fully able to make medical decisions for herself. Differential Diagnosis Differential Diagnosis: Migraine headache, tension headache, nonspecific headache Discharge Plan Discharge Stand Alone Forms: Portal Instructions Chief Complaint: Headache Clinical Impression: Headache Patient Disposition: Left Against Medical Advice Time of Disposition Decision: 01:14 Condition: Good Mode of Transportation: Private Vehicle Prescriptions / Home Meds: No Action baclofen 10 mg tablet 10 mg PO TID PRN (Reason: spasms) diazepam 10 mg tablet 5 mg PO QID PRN (Reason: seizures) epinephrine 0.3 mg/0.3 mL auto-injector 0.3 mg IM Q10M PRN (Reason: anaphylaxis) Rx Instructions: for 2 doses trazodone 300 mg tablet 300 mg PO .qhs lithium carbonate 300 mg tablet 600 mg PO Q12H ketorolac 10 mg tablet 10 mg PO Q8H PRN (Reason: pain) 2 Days Qty: 6 0RF albuterol sulfate 90 mcg/actuation HFA aerosol inhaler 2 puff INHALATION Q4H PRN (Reason: shortness of breath or wheezing) lamotrigine 150 mg tablet 150 mg PO BID magnesium oxide 400 mg (241.3 mg magnesium) tablet 400 mg PO .qhs promethazine 12.5 mg tablet 12.5 mg PO Q6H PRN (Reason: nausea and vomiting) vilazodone 40 mg tablet 40 mg PO DAILY zolmitriptan 5 mg spray,non-aerosol 1 spray INTRANASAL Q2H PRN (Reason: headache) Rx Instructions: May repeat once if needed after =2 hours diphenhydramine HCl [Benadryl] 25 mg capsule 75 mg PO Q6H PRN (Reason: migraine headache) nabumetone 750 mg tablet 750 mg PO BID PRN (Reason: pain) Qty: 14 0RF Print Language: Ethiopian Instructions: Acute Headache (ED) Referrals: Lamont Blair MD [Primary Care Provider] - 1 week Discharge Date/Time: 05/04/24 01:00
== END 2024-05-04 01:00 | disposition left against medical advice (07) ==
LOC: ER 23:35
PROVIDERS: Emergency Provider Emergency Medicine; PCP Family Medicine
DX: R51.9 Headache, unspecified (principal); Z90.710 Acquired absence of both cervix and uterus; Z90.722 Acquired absence of ovaries, bilateral; Z90.79 Acquired absence of other genital organ(s); Z90.49 Acquired absence of other specified parts of digestive tract
CPT/HCPCS: 99284

== ENCOUNTER 2024-06-22 14:45 | Emergency (ER) | payer OTHER, SELFPAY ==
[2024-06-22 14:51] VITALS: BP 125/85; PULSE 110; TEMP 36.8; O2SAT 96; BMI 45.3
--- NOTE | 2024-06-22 15:41 | ED.GENADUL1 ---
HPI HPI - General Adult General Chief complaint: Headache Stated complaint: dizziness Time Seen by Provider: 06/22/24 14:49 History of Present Illness HPI narrative: Patient is a 28-year-old female who is very well-known to us presents multiple time before for headache, the patient presented to us with a migraine that started 4 days ago she mentioned that she is supposed to get an infusion every 3 months for her headache and apparently she thinks she having allergic reaction to it by having headache, the patient history obtained while she is laying down and closing her eyes complaining of a headache Patient mentioned that sometimes she get Dilaudid for headache that help her Related Data Home Medications ?Medication ?Instructions ?Recorded ?Confirmed diazepam 10 mg tablet 5 mg PO QID PRN seizures 07/20/22 04/20/24 epinephrine 0.3 mg/0.3 mL 0.3 mg IM Q10M PRN anaphylaxis 07/20/22 04/20/24 injection, auto-injector diphenhydramine HCl 25 mg capsule 75 mg PO Q6H PRN migraine headache 01/26/23 04/20/24 (Benadryl) trazodone 300 mg tablet 300 mg PO .qhs 03/03/23 04/20/24 lithium carbonate 300 mg tablet 600 mg PO Q12H 04/27/23 04/20/24 albuterol sulfate 90 mcg/actuation 2 puff inhalation Q4H PRN 08/16/23 04/20/24 aerosol inhaler shortness of breath or wheezing lamotrigine 150 mg tablet 150 mg PO BID 08/16/23 04/20/24 magnesium oxide 400 mg (241.3 mg 400 mg PO .qhs 08/16/23 04/20/24 magnesium) tablet promethazine 12.5 mg tablet 12.5 mg PO Q6H PRN nausea and 08/16/23 04/20/24 vomiting vilazodone 40 mg tablet 40 mg PO DAILY 08/16/23 04/20/24 zolmitriptan 5 mg nasal spray 1 spray intranasal Q2H PRN headache 08/16/23 04/20/24 Previous Rx's ?Medication ?Instructions ?Recorded ketorolac 10 mg tablet 10 mg PO Q8H PRN pain 2 days #6 05/13/23 tabs nabumetone 750 mg tablet 750 mg PO BID PRN pain #14 tabs 04/20/24 ketorolac 10 mg tablet 10 mg PO Q8H PRN pain 3 days #10 06/22/24 tabs tizanidine 2 mg capsule 2 mg PO Q12H PRN muscle spasticity 06/22/24 #10 caps Allergies Allergy/AdvReac Type Severity Reaction Status Date / Time dihydroergotamine Allergy Unknown Hives Verified 06/22/24 14:54 vortioxetine Allergy Unknown Hives Verified 06/22/24 14:54 buspirone Allergy Hives Verified 06/22/24 14:54 carbamazepine Allergy Unknown Verified 06/22/24 14:54 levetiracetam (From Keppra) Allergy ITCHING Verified 06/22/24 14:54 azithromycin (From Zithromax) AdvReac Intermediate Hives Verified 06/22/24 14:54 bee venom protein (honey bee) AdvReac Intermediate Hives Verified 06/22/24 14:54 metoclopramide (From Reglan) AdvReac Intermediate panic Verified 06/22/24 14:54 adhesive tape AdvReac Mild Rash Verified 06/22/24 14:54 cephalexin (From Keflex) AdvReac Mild Hives Verified 06/22/24 14:54 dextromethorphan (From AdvReac Mild Unknown Verified 06/22/24 14:54 [place] DM) pyrilamine (From [place] DM) AdvReac Mild Unknown Verified 06/22/24 14:54 prochlorperazine (From AdvReac Anxiety Verified 06/22/24 14:54 Compazine) propranolol AdvReac Hives Verified 06/22/24 14:54 Opioid HPI Opioid Management Most Recent Opioid Data: Last Pain Scale 7 06/22/24, 16:43 Last MAR Pain Assessment 06/22/24, 15:48 Last ORT Total Score 0 08/16/23, 14:51 Last ORT Risk Category Low Risk 08/16/23, 14:51 Ur Phencyclidine Scrn, (NEGATIVE) Negative 08/16/23, 15:15 Review of Systems ROS Status of ROS 10 or more systems reviewed and unremarkable except as noted in history and below [facility] Medical History (Updated 06/22/24 @ 16:49 by Komal Damian MD) Chronic pain disorder ?G89.4 - Chronic pain syndrome (ICD-10) Migraine ?G43.909 - Migraine, unspecified, not intractable, without status migrainosus (ICD-10) Seizure disorder ?G40.909 - Epilepsy, unspecified, not intractable, without status epilepticus (ICD-10) Bipolar disorder ?F31.9 - Bipolar disorder, unspecified (ICD-10) Pelvic pain ?R10.2 - Pelvic and perineal pain (ICD-10) Bilateral occipital neuralgia ?M54.81 - Occipital neuralgia (ICD-10) Combative behavior ?R46.89 - Other symptoms and signs involving appearance and behavior (ICD-10) PCOS (polycystic ovarian syndrome) ?E28.2 - Polycystic ovarian syndrome (ICD-10) Mitral valve prolapse ?I34.1 - Nonrheumatic mitral (valve) prolapse (ICD-10) GERD (gastroesophageal reflux disease) ?K21.9 - Gastro-esophageal reflux disease without esophagitis (ICD-10) Depression ?F32.A - Depression, unspecified (ICD-10) Blood in urine ?R31.9 - Hematuria, unspecified (ICD-10) Acne ?L70.9 - Acne, unspecified (ICD-10) Dyspareunia Brain mass ?G93.89 - Other specified disorders of brain (ICD-10) Kidney stones ?N20.0 - Calculus of kidney (ICD-10) COVID-19 ?U07.1 - COVID-19 (ICD-10) Bronchitis ?J40 - Bronchitis, not specified as acute or chronic (ICD-10) Asthma ?J45.909 - Unspecified asthma, uncomplicated (ICD-10) Stress incontinence ?N39.3 - Stress incontinence (female) (male) (ICD-10) Dysuria ?R30.0 - Dysuria (ICD-10) Anxiety ?F41.9 - Anxiety disorder, unspecified (ICD-10) Surgical History H/O laparoscopy (07/21/22) ?Z98.890 - Other specified postprocedural states (ICD-10) S/P RAVI-BSO ?Z90.710 - Acquired absence of both cervix and uterus (ICD-10) ?Z90.722 - Acquired absence of ovaries, bilateral (ICD-10) ?Z90.79 - Acquired absence of other genital organ(s) (ICD-10) Hx laparoscopic cholecystectomy ?Z90.49 - Acquired absence of other specified parts of digestive tract (ICD-10) H/O: ?Z98.891 - History of uterine scar from previous surgery (ICD-10) History of appendectomy ?Z90.49 - Acquired absence of other specified parts of digestive tract (ICD-10) Family History Other Acid reflux Acute renal disease Afib Chromosomal disorder Delayed developmental milestones Diabetes Family history of hypertension High cholesterol Neuro-irritability due to autonomic dysfunction 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 General: Well-appearing and in no apparent distress. Skin: Warm, dry, no pallor noted. No rash. Head: Normocephalic, atraumatic. Neck: Supple, non-tender. Eye: Pupils are equal, round and EOMI. No scleral icterus. Ears, Nose, Mouth, and Throat: TM are clear, no nasal mucosal hypertrophy. Oral mucosa is moist, no posterior oropharynx erythema, uvula is mid-line Cardiovascular: Regular Rate and Rhythm without murmur, gallop or rub. Respiratory: No accessory muscle use or respiratory distress. Lungs are clear to auscultation, no wheezing, rales or rhonchi Chest Wall: no tenderness Back: No midline thoracic or lumbar vertebral tenderness. No CVA tenderness Musculoskeletal: normal ROM, no calf or popliteal tenderness, no lower extremity edema/swelling GI: Abdomen is soft, non-distended. Normal bowel sounds. No masses appreciated. No tenderness to palpation. No rebound, guarding, or rigidity noted. Neurological: A&O x4. No cranial nerve dysfunction observed. Constitutional Vital Signs, click to edit/add: Last Vital Signs Temp 98.2 F 06/22/24 14:51 Pulse 89 06/22/24 17:19 Resp 14 06/22/24 17:19 BP 127/90 06/22/24 17:19 Pulse Ox 99 06/22/24 17:19 O2 Del Method Room Air 06/22/24 17:19 Course Vital Signs Vital signs: Vital Signs Temperature 98.2 F 06/22/24 14:51 Pulse Rate 110 H 06/22/24 14:51 Respiratory Rate 16 06/22/24 14:51 Blood Pressure 125/85 06/22/24 14:51 Pulse Oximetry 96 06/22/24 14:51 Oxygen Delivery Method Room Air 06/22/24 14:51 Temperature 98.2 F 06/22/24 14:51 Pulse Rate 89 06/22/24 17:19 Respiratory Rate 14 06/22/24 17:19 Blood Pressure 127/90 06/22/24 17:19 Pulse Oximetry 99 06/22/24 17:19 Oxygen Delivery Method Room Air 06/22/24 17:19 Medical Decision Making MDM Narrative Medical decision making narrative: The patient have a history of migraine she was provided with a Toradol as well as IV Benadryl I did explain to the patient that I cannot give her Dilaudid because this is not indicated for migraine And I did explain to the patient after she was provided with her medication here in the ER that she will be provided also with Norflex and she will be discharged with Norflex and Toradol The patient is to follow up with primary care physician in next 2-3 days or to return to the emergency department should any of the signs or symptoms worsen or new symptoms develop. The patient agrees with the following Diagnosis and Treatment plan and the patient will be discharged home. The patient CBC and chemistry showed no acute pathology Lab Data Labs: Lab Results 06/22/24 Range/Units 15:33 WBC 6.2 (4.0-11.0) 10^3/uL RBC 4.90 (4.20-5.40) 10^6/uL Hgb 14.1 (12.0-16.0) g/dL Hct 41.6 (36.0-48.0) % MCV 84.9 (81.0-99.0) fL MCH 28.8 (26.7-34.0) pg MCHC 33.9 (29.9-35.2) g/dL RDW 12.8 (11.0-15.0) % Plt Count 263 (150-450) 10^3/uL MPV 9.7 (9.5-13.5) fL Neut % (Auto) 56.0 (43.0-75.0) % Lymph % (Auto) 31.0 (20.5-60.0) % [place] % (Auto) 7.0 (1.7-12.0) % Eos % (Auto) 5.5 (0.9-7.0) % Baso % (Auto) 0.3 (0.2-2.0) % Neut # (Auto) 3.5 (1.4-6.5) 10^3/uL Lymph # (Auto) 1.9 (1.2-3.8) 10^3/uL [place] # (Auto) 0.4 (0.3-0.8) 10^3/uL Eos # (Auto) 0.3 (0.0-0.7) 10^3/uL Baso # (Auto) 0.0 (0.0-0.1) 10^3/uL Abs Immat Gran (auto) 0.01 (0.00-0.03) 10^3/uL Imm/Tot Granulo (auto) 0.2 (0.0-0.5) % Sodium 140 (136-145) mmol/L Potassium 4.3 (3.5-5.1) mmol/L Chloride 104 (98-107) mmol/L Carbon Dioxide 28.2 (21.0-32.0) mmol/L Anion Gap 12.1 BUN 14.0 (7.0-18.0) mg/dL Creatinine 0.77 (0.55-1.02) mg/dL Est GFR ( Amer) >60 (>=60 mL/min/1.73m^2) Est GFR (Non-Af Amer) >60 (>=60 mL/min/1.73m^2) BUN/Creatinine Ratio 18.2 Glucose 87 (74-106) mg/dL Calcium 9.3 (8.5-10.1) mg/dL Total Bilirubin 0.3 (0.2-1.0) mg/dL AST 10 L (15-37) U/L ALT 24 (14-59) U/L Alkaline Phosphatase 101 (46-116) U/L Total Protein 7.8 (6.4-8.2) g/dL Albumin 3.8 (3.4-5.0) g/dL Globulin 4.0 g/dL Albumin/Globulin Ratio 0.9 Discharge Plan Discharge Chief Complaint: Headache Clinical Impression: Headache Patient Disposition: Home, Self-Care Time of Disposition Decision: 16:49 Condition: Good Prescriptions / Home Meds: New ketorolac 10 mg tablet 10 mg PO Q8H PRN (Reason: pain) 3 Days Qty: 10 0RF tizanidine 2 mg capsule 2 mg PO Q12H PRN (Reason: muscle spasticity) Qty: 10 0RF Discontinued baclofen 10 mg tablet 10 mg PO TID PRN (Reason: spasms) No Action diazepam 10 mg tablet 5 mg PO QID PRN (Reason: seizures) epinephrine 0.3 mg/0.3 mL auto-injector 0.3 mg IM Q10M PRN (Reason: anaphylaxis) Rx Instructions: for 2 doses trazodone 300 mg tablet 300 mg PO .qhs lithium carbonate 300 mg tablet 600 mg PO Q12H ketorolac 10 mg tablet 10 mg PO Q8H PRN (Reason: pain) 2 Days Qty: 6 0RF albuterol sulfate 90 mcg/actuation HFA aerosol inhaler 2 puff INHALATION Q4H PRN (Reason: shortness of breath or wheezing) lamotrigine 150 mg tablet 150 mg PO BID magnesium oxide 400 mg (241.3 mg magnesium) tablet 400 mg PO .qhs promethazine 12.5 mg tablet 12.5 mg PO Q6H PRN (Reason: nausea and vomiting) vilazodone 40 mg tablet 40 mg PO DAILY zolmitriptan 5 mg spray,non-aerosol 1 spray INTRANASAL Q2H PRN (Reason: headache) Rx Instructions: May repeat once if needed after =2 hours diphenhydramine HCl [Benadryl] 25 mg capsule 75 mg PO Q6H PRN (Reason: migraine headache) nabumetone 750 mg tablet 750 mg PO BID PRN (Reason: pain) Qty: 14 0RF Print Language: Nepalese Instructions: Acute Headache (DC) Referrals: Physician,Non-Staff, MD [Primary Care Provider] - 1 week Discharge Date/Time: 06/22/24 17:22
[2024-06-22 15:43] LABS: Basophils Percent Auto 0.3 % (0.2-2.0); Eosinophils Absolute Auto 0.3 10^3/uL (0.0-0.7); Eosinophils Percent Auto 5.5 % (0.9-7.0); Hematocrit 41.6 % (36.0-48.0); Hemoglobin 14.1 g/dL (12.0-16.0); Immature Granulocytes Abs Auto 0.01 10^3/uL (0.00-0.03); Immature Granulocytes Pct Auto 0.2 % (0.0-0.5); Lymphocytes Absolute Auto 1.9 10^3/uL (1.2-3.8); Mean Corpuscular HGB Conc 33.9 g/dL (29.9-35.2); Mean Corpuscular Hemoglobin 28.8 pg (26.7-34.0); Mean Corpuscular Volume 84.9 fL (81.0-99.0); Mean Platelet Volume 9.7 fL (9.5-13.5); Monocytes Absolute Auto 0.4 10^3/uL (0.3-0.8); Neutrophils Absolute Auto 3.5 10^3/uL (1.4-6.5); Platelet Count 263 10^3/uL (150-450); Red Cell Distribution Width 12.8 % (11.0-15.0); White Blood Count 6.2 10^3/uL (4.0-11.0)
[2024-06-22] MEDS: 0.9 % SODIUM CHLORIDE 1,000 ML 1000 ML IV (15:43)
[2024-06-22] MEDS: METHYLPREDNISOLONE SOD SUCC PF 40 MG/ML VIAL IVP (15:46)
[2024-06-22] MEDS: KETOROLAC TROMETHAMINE 30 MG/ML VIAL 15 MG IVP (15:48)
[2024-06-22] MEDS: DIPHENHYDRAMINE HCL 50 MG/ML VIAL 12.5 MG IVP (15:49)
[2024-06-22 16:01] LABS: Alanine Aminotransferase 24 U/L (14-59); Albumin Globulin Ratio 0.9; Albumin Level 3.8 g/dL (3.4-5.0); Alkaline Phosphatase 101 U/L (46-116); Anion Gap 12.1; Aspartate Amino Transferase 10 U/L (15-37); BUN Creatinine Ratio 18.2; Bilirubin Total 0.3 mg/dL (0.2-1.0); Calcium 9.3 mg/dL (8.5-10.1); Carbon Dioxide 28.2 mmol/L (21.0-32.0); Chloride 104 mmol/L (98-107); Estimated GFR (African America >60 (>=60 mL/min/1.73m^2); Estimated GFR (Non-African Ame >60 (>=60 mL/min/1.73m^2); Glucose 87 mg/dL (74-106); Potassium 4.3 mmol/L (3.5-5.1); Sodium 140 mmol/L (136-145); Total Protein 7.8 g/dL (6.4-8.2)
[2024-06-22] MEDS: ORPHENADRINE 60 MG/2 ML VIAL 30 MG IV (17:07)
[2024-06-22 17:19] VITALS: BP 127/90; PULSE 89; O2SAT 99
== END 2024-06-22 17:22 | disposition home or self-care (01) ==
PROVIDERS: Emergency Provider Emergency Medicine
DX: R51.9 Headache, unspecified (principal); Z90.710 Acquired absence of both cervix and uterus; Z90.722 Acquired absence of ovaries, bilateral; Z90.79 Acquired absence of other genital organ(s); Z90.49 Acquired absence of other specified parts of digestive tract
CPT/HCPCS: 36415; 80053; 84703; 85025; 96374; 96375; 99284; J1200; J1885; J2360; J2919

== ENCOUNTER 2024-07-26 17:33 | Emergency (ER) | payer OTHER, SELFPAY ==
[2024-07-26 17:46] VITALS: BP 143/94; PULSE 98; O2SAT 93; BMI 47.2
--- NOTE | 2024-07-26 18:39 | ED.GENADUL1 ---
HPI HPI - General Adult General Chief complaint: Headache Stated complaint: HEADACHE Time Seen by Provider: 07/26/24 18:29 Source: patient Mode of arrival: walk-in History of Present Illness HPI narrative: Patient is a 28-year-old female who is presenting to the ER today with chief complaint of acute on chronic headache. Patient has been to the ER multiple times in the past for headache. Please see previous charts. I saw this patient on January 15, 2024. Patient does have neurology team at the [facility]. Patient does get IV infusions for her headaches at the [facility]. Patient did have a infusion set up for the end of the month of July, patient was able to move it up until next week on August 01. Patient does have Zomig at home that she has been using without relief. Patient was brought to the ER by family member. Patient states for the past 2 to 3 days she has not been able to keep any fluids down. She states that Zofran is not helping, also patient states she been having diarrhea for the past 2 or 3 days. Patient says that the diarrhea has been difficult for patient to keep her Phenergan suppositories on, but she has tried. Patient states her pain is behind her eyes where typically is. Patient headache. Patient has been having intractable nausea vomiting since Monday or Monday. Patient often having loose stool. Patient states her diarrhea has been clear/yellowish. No chest pain or shortness of breath. No acute complaints. No falls, no recent traveling. Patient says she is not , she had a history made. All systems are negative except as noted/marked. All systems reviewed and otherwise negative. Nurses note and vital signs reviewed and patient is not hypoxic. General: The patient appears mild distress secondary to not feeling well, patient is resting uncomfortably on cart. Patient is not toxic, lethargic, or listless Skin: Warm, dry, no pallor noted. There is no rash noted. No petechiae, purpura. Head: Normocephalic, atraumatic, patient has mild tenderness palpation to the soft tissue to bilateral paracervical area, she has no new midline cervical tenderness to palpation. Patient has full range of motion of cervical pain with no difficulty, causing some mild pain to the soft tissue. No meningeal signs or symptoms. Eye: Normal conjunctiva, no drainage, EOMI. PERRL Ears, Nose, Mouth, and Throat: oral mucosa is moist. Nares patent. Mouth without vesicles. Cardiovascular: Regular Rate and Rhythm, no murmur, gallop, rub Respiratory: Patient is in no distress, no accessory muscle use, lungs are clear to auscultation, no wheezing, rales or rhonchi Back: non-tender, no CVA tenderness bilaterally to percussion. No CT LS midline pain GI: Soft, morbidly obese, no midepigastric tenderness palpation, no peritoneal signs, no tenderness to palpation, no masses appreciated. No rebound, guarding, or rigidity noted. No distention Musculoskeletal: Patient has full range of motion of all of the extremities, no motor, sensory, or focal neurological deficits Neurological: A&O x4, normal speech Psychiatric: Cooperative Related Data Home Medications ?Medication ?Instructions ?Recorded ?Confirmed diazepam 10 mg tablet 5 mg PO QID PRN seizures 07/20/22 07/26/24 epinephrine 0.3 mg/0.3 mL 0.3 mg IM Q10M PRN anaphylaxis 07/20/22 07/26/24 injection, auto-injector diphenhydramine HCl 25 mg capsule 75 mg PO Q6H PRN migraine headache 01/26/23 07/26/24 (Benadryl) albuterol sulfate 90 mcg/actuation 2 puff inhalation Q4H PRN 08/16/23 07/26/24 aerosol inhaler shortness of breath or wheezing lamotrigine 150 mg tablet 150 mg PO BID 08/16/23 07/26/24 magnesium oxide 400 mg (241.3 mg 400 mg PO .qhs 08/16/23 07/26/24 magnesium) tablet zolmitriptan 5 mg nasal spray 1 spray intranasal Q2H PRN headache 08/16/23 07/26/24 amitriptyline 100 mg tablet 50 mg PO DAILY 07/26/24 07/26/24 Allergies Allergy/AdvReac Type Severity Reaction Status Date / Time dihydroergotamine Allergy Unknown Hives Verified 07/26/24 17:42 vortioxetine Allergy Unknown Hives Verified 07/26/24 17:42 buspirone Allergy Hives Verified 07/26/24 17:42 carbamazepine Allergy Unknown Verified 07/26/24 17:42 levetiracetam (From [facility]) Allergy ITCHING Verified 07/26/24 17:42 azithromycin (From Zithromax) AdvReac Intermediate Hives Verified 07/26/24 17:42 bee venom protein (honey bee) AdvReac Intermediate Hives Verified 06/22/24 14:54 metoclopramide (From Reglan) AdvReac Intermediate panic Verified 07/26/24 17:42 adhesive tape AdvReac Mild Rash Verified 07/26/24 17:42 cephalexin (From Keflex) AdvReac Mild Hives Verified 07/26/24 17:42 dextromethorphan (From AdvReac Mild Unknown Verified 07/26/24 17:42 [place] DM) pyrilamine (From [place] DM) AdvReac Mild Unknown Verified 07/26/24 17:42 prochlorperazine (From AdvReac Anxiety Verified 07/26/24 17:42 Compazine) propranolol AdvReac Hives Verified 07/26/24 17:42 Opioid HPI Opioid Management Most Recent Opioid Data: Last Pain Scale 10 Today, 19:22 Last ED Pain Assessment Today, 19:22 Last ORT Total Score 0 08/16/23, 14:51 Last ORT Risk Category Low Risk 08/16/23, 14:51 Ur Phencyclidine Scrn, (NEGATIVE) Negative 08/16/23, 15:15 PFSH PFSH Medical History (Updated 07/26/24 @ 19:35 by Kings Wallace MD) Chronic pain disorder ?G89.4 - Chronic pain syndrome (ICD-10) Migraine ?G43.909 - Migraine, unspecified, not intractable, without status migrainosus (ICD-10) Seizure disorder ?G40.909 - Epilepsy, unspecified, not intractable, without status epilepticus (ICD-10) Bipolar disorder ?F31.9 - Bipolar disorder, unspecified (ICD-10) Pelvic pain ?R10.2 - Pelvic and perineal pain (ICD-10) Bilateral occipital neuralgia ?M54.81 - Occipital neuralgia (ICD-10) Combative behavior ?R46.89 - Other symptoms and signs involving appearance and behavior (ICD-10) PCOS (polycystic ovarian syndrome) ?E28.2 - Polycystic ovarian syndrome (ICD-10) Mitral valve prolapse ?I34.1 - Nonrheumatic mitral (valve) prolapse (ICD-10) GERD (gastroesophageal reflux disease) ?K21.9 - Gastro-esophageal reflux disease without esophagitis (ICD-10) Depression ?F32.A - Depression, unspecified (ICD-10) Blood in urine ?R31.9 - Hematuria, unspecified (ICD-10) Acne ?L70.9 - Acne, unspecified (ICD-10) Dyspareunia Brain mass ?G93.89 - Other specified disorders of brain (ICD-10) Kidney stones ?N20.0 - Calculus of kidney (ICD-10) COVID-19 ?U07.1 - COVID-19 (ICD-10) Bronchitis ?J40 - Bronchitis, not specified as acute or chronic (ICD-10) Asthma ?J45.909 - Unspecified asthma, uncomplicated (ICD-10) Stress incontinence ?N39.3 - Stress incontinence (female) (male) (ICD-10) Dysuria ?R30.0 - Dysuria (ICD-10) Anxiety ?F41.9 - Anxiety disorder, unspecified (ICD-10) Surgical History H/O laparoscopy (07/21/22) ?Z98.890 - Other specified postprocedural states (ICD-10) S/P RAVI-BSO ?Z90.710 - Acquired absence of both cervix and uterus (ICD-10) ?Z90.722 - Acquired absence of ovaries, bilateral (ICD-10) ?Z90.79 - Acquired absence of other genital organ(s) (ICD-10) Hx laparoscopic cholecystectomy ?Z90.49 - Acquired absence of other specified parts of digestive tract (ICD-10) H/O: ?Z98.891 - History of uterine scar from previous surgery (ICD-10) History of appendectomy ?Z90.49 - Acquired absence of other specified parts of digestive tract (ICD-10) Family History Other Acid reflux Acute renal disease Afib Chromosomal disorder Delayed developmental milestones Diabetes Family history of hypertension High cholesterol Neuro-irritability due to autonomic dysfunction 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 level of school completed/degree received: Associate degree: occupational, technical, vocational program Little interest or pleasure in doing things: not at all Feeling down, depressed, or hopeless: not at all Gender Identity: female Exam Constitutional Vital Signs, click to edit/add: Last Vital Signs Pulse 84 07/26/24 19:24 Resp 18 07/26/24 19:24 BP 136/82 07/26/24 19:24 Pulse Ox 97 07/26/24 19:24 O2 Del Method Room Air 07/26/24 19:24 Course Vital Signs Vital signs: Vital Signs Pulse Rate 98 H 07/26/24 17:46 Respiratory Rate 20 07/26/24 17:46 Blood Pressure 143/94 H 07/26/24 17:46 Pulse Oximetry 93 L 07/26/24 17:46 Oxygen Delivery Method Room Air 07/26/24 17:46 Pulse Rate 84 07/26/24 19:24 Respiratory Rate 18 07/26/24 19:24 Blood Pressure 136/82 07/26/24 19:24 Pulse Oximetry 97 07/26/24 19:24 Oxygen Delivery Method Room Air 07/26/24 19:24 Medical Decision Making [facility] Narrative Medical decision making narrative: Patient seen and examined: Patient will be having IV placed, IV fluids, IV medications similar to her I gave her on January 15, 2024 that helped take the edge off her headache and pain. Differential diagnosis includes but is not limited to: Dehydration, electrolyte abnormality, chronic headache/migraine, cervical strain, UTI, gastroenteritis, Reevaluation: Shared decision making: I discussed with the patient the necessary laboratory findings and radiological findings. Social barriers to healthcare: There are no food insecurities, there is no issue with transportation, there are no insurance barriers. Disposition: I discussed with the patient IV, IV fluids, and medications that will be given. 1904 patient will be transition to Dr. Flower for reevaluation of patient after medications have been given and final disposition. Discharge Plan Discharge Patient Disposition: Still a Patient
[2024-07-26 19:24] VITALS: BP 136/82; PULSE 84; O2SAT 97
[2024-07-26] MEDS: 0.9 % SODIUM CHLORIDE 1,000 ML 1000 ML IV (20:00)
[2024-07-26] MEDS: ONDANSETRON PF 4 MG/2 ML VIAL IV (20:02)
[2024-07-26] MEDS: PROCHLORPERAZINE 10 MG/2 ML VIAL IV (20:06)
[2024-07-26] MEDS: DEXAMETHASONE SOD PHOS 10 MG/ML VIAL IV (20:08)
[2024-07-26] MEDS: DIPHENHYDRAMINE HCL 50 MG/ML VIAL IVP (20:11)
[2024-07-26] MEDS: KETOROLAC TROMETHAMINE 30 MG/ML VIAL 15 MG IVP (20:11)
== END 2024-07-26 21:06 | disposition home or self-care (01) ==
PROVIDERS: Emergency Provider Emergency Medicine
DX: G43.909 Migraine, unspecified, not intractable, without status migrainosus (principal); E66.01 Morbid (severe) obesity due to excess calories; Z68.42 Body mass index [BMI] 45.0-49.9, adult; Z90.710 Acquired absence of both cervix and uterus; Z90.722 Acquired absence of ovaries, bilateral; Z90.49 Acquired absence of other specified parts of digestive tract
CPT/HCPCS: 96361; 96374; 96375; 99284; J0780; J1100; J1200; J1885; J2405

== ENCOUNTER 2024-08-16 16:11 | Emergency (ER) | payer OTHER, SELFPAY ==
[2024-08-16 16:18] VITALS: BP 129/80; PULSE 107; TEMP 36.8; O2SAT 94; BMI 47.2
--- NOTE | 2024-08-16 16:25 | ED_ITS ---
HPI HPI - General Adult General Chief complaint: Headache Stated complaint: MIGRAINE Time Seen by Provider: 08/16/24 16:19 Source: patient Mode of arrival: walk-in Limitations: no limitations History of Present Illness HPI narrative: 28-year-old female presents for headache. She states she has had it for 4 days and is mostly in the back of her head. She gets headaches frequently in his seen in the emergency department frequently. She is scheduled to have infusions in [place] in 3 and 4 days. No trauma fever or stiff neck and the pain is severe and continuous. It was not of sudden onset. Related Data Home Medications ?Medication ?Instructions ?Recorded ?Confirmed diazepam 10 mg tablet 5 mg PO QID PRN seizures 08/16/24 epinephrine 0.3 mg/0.3 mL 0.3 mg IM Q10M PRN anaphylax is 07/20/22 08/16/24 injection, auto-injector diphenhydramine HCl 25 mg capsule 75 mg PO Q6H PRN sweta giovany headache 01/26/23 08/16/24 (Benadryl) albuterol sulfate 90 mcg/actuation 2 puff inhalation Q 4H PRN 08/16/23 08/16/24 aerosol inhaler shortness of breath or wheez ing magnesium oxide 400 mg (241.3 mg 400 mg PO .qhs 08/16/24 magnesium) tablet zolmitriptan 5 mg nasal spray 1 spray intranasal Q2H P RN headache 08/16/23 08/16/24 amitriptyline 100 mg tablet 50 mg PO DAILY 07/26/24 Previous Rx's ?Medication ?Instructions ?Recorded ejzknsmacw-sdpqxhcxzvzog-aotkundo 1 cap PO Q6H PRN rigoberto n 5 days #20 08/16/24 50 mg-300 mg-40 mg capsule caps (Fioricet) Allergies Allergy/AdvReac Type Severity Reaction Status Date / Time dihydroergotamine Allergy Unknown Hives Verified 07/26/24 17:42 vortioxetine Allergy Unknown Hives Verified 07/26/24 17:42 buspirone Allergy Hives Verified 07/26/24 17:42 carbamazepine Allergy Unknown Verified 07/26/24 17:42 levetiracetam (From Keppra) Allergy ITCHING Verified 07/26/24 17:42 azithromycin (From Zithromax) AdvReac Intermediate Hives Verified 07/26/24 17:42 bee venom protein (honey bee) AdvReac Intermediate Hives Verified 06/22/24 14:54 metoclopramide (From Reglan) AdvReac Intermediate panic Verified 07/26/24 17:42 adhesive tape AdvReac Mild Rash Verified 07/26/24 17:42 cephalexin (From Keflex) AdvReac Mild Hives Verified 07/26/24 17:42 dextromethorphan (From AdvReac Mild Unknown Verified 07/26/24 17:42 [place] DM) pyrilamine (From [place] DM) AdvReac Mild Unknown Verified 07/26/24 17:42 prochlorperazine (From AdvReac Anxiety Verified 07/26/24 17:42 Compazine) propranolol AdvReac Hives Verified 07/26/24 17:42 Opioid HPI Opioid Management Most Recent Opioid Data: Last Pain Scale 10 Today, 16:36 Last MAR Pain Assessment Today, 16:36 Last ORT Total Score 0 08/16/23, 14:51 Last ORT Risk Category Low Risk 08/16/23, 14:51 Ur Phencyclidine Scrn, (NEGATIVE) Negative , 15:15 Review of Systems ROS Narrative A ten point review of systems is negative except as noted above. [facility] Medical History (Updated 08/16/24 @ 16:28 by Wild Kendall MD) Chronic pain disorder ?G89.4 - Chronic pain syndrome (ICD-10) Migraine ?G43.909 - Migraine, unspecified, not intractable, without status migrainosus (ICD-10) Seizure disorder ?G40.909 - Epilepsy, unspecified, not intractable, without status epilepticus (ICD-10) Bipolar disorder ?F31.9 - Bipolar disorder, unspecified (ICD-10) Pelvic pain ?R10.2 - Pelvic and perineal pain (ICD-10) Bilateral occipital neuralgia ?M54.81 - Occipital neuralgia (ICD-10) Combative behavior ?R46.89 - Other symptoms and signs involving appearance and behavior (ICD-10) PCOS (polycystic ovarian syndrome) ?E28.2 - Polycystic ovarian syndrome (ICD-10) Mitral valve prolapse ?I34.1 - Nonrheumatic mitral (valve) prolapse (ICD-10) GERD (gastroesophageal reflux disease) ?K21.9 - Gastro-esophageal reflux disease without esophagitis (ICD-10) Depression ?F32.A - Depression, unspecified (ICD-10) Blood in urine ?R31.9 - Hematuria, unspecified (ICD-10) Acne ?L70.9 - Acne, unspecified (ICD-10) Dyspareunia Brain mass ?G93.89 - Other specified disorders of brain (ICD-10) Kidney stones ?N20.0 - Calculus of kidney (ICD-10) COVID-19 ?U07.1 - COVID-19 (ICD-10) Bronchitis ?J40 - Bronchitis, not specified as acute or chronic (ICD-10) Asthma ?J45.909 - Unspecified asthma, uncomplicated (ICD-10) Stress incontinence ?N39.3 - Stress incontinence (female) (male) (ICD-10) Dysuria ?R30.0 - Dysuria (ICD-10) Anxiety ?F41.9 - Anxiety disorder, unspecified (ICD-10) Surgical History H/O laparoscopy (07/21/22) ?Z98.890 - Other specified postprocedural states (ICD-10) S/P RAVI-BSO ?Z90.710 - Acquired absence of both cervix and uterus (ICD-10) ?Z90.722 - Acquired absence of ovaries, bilateral (ICD-10) ?Z90.79 - Acquired absence of other genital organ(s) (ICD-10) Hx laparoscopic cholecystectomy ?Z90.49 - Acquired absence of other specified parts of digestive tract (ICD- 10) H/O: ?Z98.891 - History of uterine scar from previous surgery (ICD-10) History of appendectomy ?Z90.49 - Acquired absence of other specified parts of digestive tract (ICD- 10) Family History Other Acid reflux Acute renal disease Afib Chromosomal disorder Delayed developmental milestones Diabetes Family history of hypertension High cholesterol Neuro-irritability due to autonomic dysfunction 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 General: The patient appears well and in no apparent distress. Patient is resting comfortably on cart. Skin: Warm, dry, no pallor noted. There is no rash noted. Head: Normocephalic, atraumatic; neck supple, no nuchal rigidity Eye: Normal conjunctiva, no drainage, EOMI. PERRL Ears, Nose, Mouth, and Throat: oral mucosa is moist. Nares patent. Cardiovascular: Regular Rate and Rhythm Respiratory: Patient is in no distress, no accessory muscle use, lungs are clear to auscultation, no wheezing, rales or rhonchi GI: Soft and nontender Musculoskeletal: The patient has no evidence of calf tenderness, no pitting edema, symmetrical pulses noted bilaterally Neurological: A&O, normal speech; upper and lower extremity strength intact Psychiatric: Cooperative Constitutional Vital Signs, click to edit/add: Last Vital Signs Temp 98.2 F 08/16/24 16:18 Pulse 107 H 08/16/24 16:18 Resp 18 08/16/24 16:18 BP 129/80 08/16/24 16:18 Pulse Ox 94 L 08/16/24 16:18 O2 Del Method Room Air 08/16/24 16:18 Course Vital Signs Vital signs: Vital Signs Temperature 98.2 F 08/16/24 16:18 Pulse Rate 107 H 08/16/24 16:18 Respiratory Rate 18 08/16/24 16:18 Blood Pressure 129/80 08/16/24 16:18 Pulse Oximetry 94 L 08/16/24 16:18 Oxygen Delivery Method Room Air 08/16/24 16:18 Temperature 98.2 F 08/16/24 16:18 Pulse Rate 107 H 08/16/24 16:18 Respiratory Rate 18 08/16/24 16:18 Blood Pressure 129/80 08/16/24 16:18 Pulse Oximetry 94 L 08/16/24 16:18 Oxygen Delivery Method Room Air 08/16/24 16:18 Medical Decision Making MDM Narrative Medical decision making narrative: She is given IM Toradol, Solu-Medrol, and Benadryl and prescribed Fioricet. She will see her infusion center in 3 and 4 days for her infusions. Treatment diagnosis and follow-up were discussed with the patient. I have no clinical suspicion of acute intracranial pathology or meningitis. Differential Diagnosis Differential Diagnosis: Migraine headache, intracranial hemorrhage, meningitis Medical Records Medical records reviewed: Yes I reviewed the patient's medical records Discharge Plan Discharge Chief Complaint: Headache Clinical Impression: Migraine Patient Disposition: Home, Self-Care Time of Disposition Decision: 16:27 Condition: Good Mode of Transportation: Private Vehicle Prescriptions / Home Meds: New rlindygbtw-eobqyclavfzcl-kspr [Fioricet] 50-300-40 mg capsule 1 cap PO Q6H PRN (Reason: pain) 5 Days Qty: 20 0RF No Action diazepam 10 mg tablet 5 mg PO QID PRN (Reason: seizures) epinephrine 0.3 mg/0.3 mL auto-injector 0.3 mg IM Q10M PRN (Reason: anaphylaxis) Rx Instructions: for 2 doses albuterol sulfate 90 mcg/actuation HFA aerosol inhaler 2 puff INHALATION Q4H PRN (Reason: shortness of breath or wheezing) magnesium oxide 400 mg (241.3 mg magnesium) tablet 400 mg PO .qhs zolmitriptan 5 mg spray,non-aerosol 1 spray INTRANASAL Q2H PRN (Reason: headache) Rx Instructions: May repeat once if needed after =2 hours diphenhydramine HCl [Benadryl] 25 mg capsule 75 mg PO Q6H PRN (Reason: migraine headache) amitriptyline 100 mg tablet 50 mg PO DAILY Print Language: [place] Instructions: Migraine Headache (ED) Referrals: Corine Gold ND [Primary Care Provider] - 1 week
[2024-08-16] MEDS: DIPHENHYDRAMINE HCL 50 MG/ML VIAL IM (16:36)
[2024-08-16] MEDS: KETOROLAC TROMETHAMINE 60 MG/2 ML VIAL IM (16:36)
[2024-08-16] MEDS: METHYLPREDNISOLONE SOD SUCC PF 125 MG/2 ML VIAL IM (16:37)
== END 2024-08-16 16:53 | disposition home or self-care (01) ==
PROVIDERS: Emergency Provider Emergency Medicine; PCP Student in an Organized Health Care Education/Training Program
DX: G43.909 Migraine, unspecified, not intractable, without status migrainosus (principal); Z90.710 Acquired absence of both cervix and uterus; Z90.722 Acquired absence of ovaries, bilateral; Z90.49 Acquired absence of other specified parts of digestive tract
CPT/HCPCS: 96372; 99284; J1200; J1885; J2919

== ENCOUNTER 2024-09-09 00:03 | Emergency (ER) | payer OTHER, SELFPAY ==
[2024-09-09 00:06] VITALS: BP 113/84; PULSE 102; TEMP 36.3; O2SAT 98; BMI 47.2
--- OUTSIDE RECORDS SUMMARY | 2024-09-09 00:24 | XMS_ITS | Encounter Summary ---
Author Organization [facility] Address [address] [place] [address] Care Team Providers Care Stone Mill Operator Name Role Phone Abdifatah Brady (Historical) Primary Care Provide r Unavailable Source Comments In the event this information is protected by the Federal Confidentiality of Alcohol and Drug AbusePatient Records regulations: The Federal rules restrict any use of the information to criminally investigate or prosecute any alcohol or drug abuse patient.[facility] Encounter Details Date Type Department Care Team (Late st Contact Info) Description 03/23/2023 Patient Msg Neurology [address], [place] [id number] Provider, [facility] Social History Tobacco Use Types Packs/Day Years Used Date Smoking Tobacco: Never Smokeless Tobacco: Never PHQ-2 Answer Date Recorded PHQ-2 score 2 03/22/2023 Area Deprivation Index Answer Date Zi rded National Score (1-100), lower number is lower ri sk 94 06/23/2022 State Score (1-10), lower number is lower risk 9 06/23/2022 Data from: https://www.neighborhoodatlas.[facility]/. Last address used for calculation [address] 06/23/2022 Comments Unknown Sex and Gender Information Value Date Recorded Sex Assigned at Not on file Legal Sex Female 10:32 AM EDT Gender Identity Not on file Sexual Orientation Not on file documented as of this encounter Functional Status * Are you deaf or do you have serious difficulty hearing? Answer Date of Assessment Author No 04/01/2022 6:20 PM Pamela Florez RN * Are you blind or do you have serious difficulty seeing, even when wearing glasses? Answer Date of Assessment Author No 04/01/2022 6:20 PM Pamela Florez RN * Do you have serious difficulty walking or climbing stairs? Answer Date of Assessment Author No 04/01/2022 6:20 PM Pamela Florez RN * Do you have difficulty dressing or bathing? Answer Date of Assessment Author No 04/01/2022 6:20 PM Pamela Florez RN * Because of a physical, mental, or emotional condition, do you have difficulty doing errands alone such as visiting a doctor's office or shopping? Answer Date of Assessment Author No 04/01/2022 6:20 PM Pamela Florez RN documented as of this encounter Mental Status * Because of a physical, mental, or emotional condition, do you have serious difficulty concentrating, remembering, or making decisions? Answer Entry Date Author No 04/01/2022 6:20 PM Pamela Florez RN documented in this encounter Plan of Treatment Upcoming Encounters Date Type Department Care Team (Late st Contact Info) Description 09/24/2024 10:00 AM EDT [facility] Neurology [address] [place] [address] Griffin Lepe PA-C [address] [place] [address] Head ache control 10/25/2024 1:30 PM EDT [facility] Neurology [address] [place] [address] Vyepti documented as of this encounter Visit Diagnoses Not on filedocumented in this encounter Care Teams Stone Mill Operator Relationship Specialty Start Date End Date Abdifatah Brady (Historical) PCP - General 05/21/13 documented as of this encounter
--- OUTSIDE RECORDS SUMMARY | 2024-09-09 00:24 | XMS_ITS | Encounter Summary ---
Author Organization [facility] Address [address] [place] [address] Care Team Providers Care Java Software Name Role Phone Abdifatah Brady (Historical) Primary Care Provide r Unavailable Source Comments In the event this information is protected by the Federal Confidentiality of Alcohol and Drug AbusePatient Records regulations: The Federal rules restrict any use of the information to criminally investigate or prosecute any alcohol or drug abuse patient.[facility] Encounter Details Date Type Department Care Team (Late st Contact Info) Description 06/27/2022 Patient Msg Neurology [address] [place], [place] [id number] Provider, [facility] Headache infusion Social History Tobacco Use Types Packs/Day Years Used Date Smoking Tobacco: Never Assessed PHQ-2 Answer Date Recorded PHQ-2 score 2 06/24/2022 Area Deprivation Index Answer Date Zi rded National Score (1-100), lower number is lower ri sk 94 06/23/2022 State Score (1-10), lower number is lower risk 9 06/23/2022 Data from: https://www.neighborhoodatlas.[facility]/. Last address used for calculation [address] [...] Info) Description 09/24/2024 10:00 AM EDT [facility] Neurology [address] [place] [address] Griffin Lepe PA-C [address] [place] [address] Head ache control 10/25/2024 1:30 PM EDT [facility] Neurology [address] [place] [address] Vyepti documented as of this encounter Visit Diagnoses Not on filedocumented in this encounter Care Teams Java Software Relationship Specialty Start Date End Date Abdifatah Brady (Historical) PCP - General 05/21/13 documented as of this encounter
--- OUTSIDE RECORDS SUMMARY | 2024-09-09 00:24 | XMS_ITS | Encounter Summary ---
Author Organization [facility] Address [address] [place] [address] Care Team Providers Care Associate Director Finance Name Role Phone Abdifatah Brady (Historical) Primary Care Provide r Unavailable Source Comments In the event this information is protected by the Federal Confidentiality of Alcohol and Drug AbusePatient Records regulations: The Federal rules restrict any use of the information to criminally investigate or prosecute any alcohol or drug abuse patient.[facility] Encounter Details Date Type Department Care Team (Late st Contact Info) Description 05/10/2024 Patient Msg Neurology [address] [place] [address] Griffin Lepe PA-C [address] [place] [address] Appointment follow-up Social History Tobacco Use Types Packs/Day Years Used Date Smoking Tobacco: Never Smokeless Tobacco: Never PHQ-2 Answer Date Recorded PHQ-2 score 2 05/03/2024 Area Deprivation Index Answer Date Zi rded National Score (1-100), lower number is lower ri sk 94 06/23/2022 State Score (1-10), lower number is lower risk 9 06/23/2022 Data from: https://www.neighborhoodatlas.medicine.[facility]/. Last address used for calculation [address] 06/23/2022 Comments No Sex and Gender Information Value Date Recorded [...] Contact Info) Description 09/24/2024 10:00 AM EDT [facility] Neurology [address] [place] [address] Griffin Lepe PA-C [address] [place] [address] Head ache control 10/25/2024 1:30 PM EDT [facility] [address] [place] [address] Vyepti documented as of this encounter Visit Diagnoses Not on filedocumented in this encounter Care Teams Associate Director Finance Relationship Specialty Start Date End Date Abdifatah Brady (Historical) PCP - General 05/21/13 documented as of this encounter
--- OUTSIDE RECORDS SUMMARY | 2024-09-09 00:24 | XMS_ITS | Encounter Summary ---
Author Organization [facility] Address [id number] [address] [place] [address] Care Team Providers Care Enrobing Machine Feeder Name Role Phone Corine Gold MD Primary Care Provider [phone] Encounter Details Date Type Department Care Team (Late st Contact Info) Description 03/21/2024 Telephone [facility] Pulmonary/Sleep Medicine [address] [address] Maila Mason RN Social History Tobacco Use Types Packs/Day Years Used Date Smoking Tobacco: Never Smokeless Tobacco: Never Alcohol Use Standard Drinks/Week Comments Not Currently 0 (1 standard drink = 0.6 oz pur e alcohol) AUDIT-C Answer Date Recorded Frequency of Alcohol Consumption Never 05/28/2019 Average Number of Drinks Not on file 020 Frequency of Binge Drinking Not on file 08/2019 PHQ-2 Answer Date Recorded Total Score 0 03/03/2022 Childcare Answer Date Recorded Childcare Unknown 08/01/2018 Employment Answer Date Recorded Employment Unknown 08/01/2018 Hunger Screening Answer Date Recorded Within the past 12 months we worried whether our food would run out before we got money to buy more. Never True 02/09/2024 Within the past 12 months th e food we bought just didn't last and we didn't have money to get more. Never True 02/09/2024 Purpose - Life Answer Date Recorded Purpose and direction in life Unknown Comments No Sex and Gender Information Value Date Recorded Sex Assigned at Not on file Legal Sex Female 11:52 AM EDT Gender Identity Not on file Sexual Orientation Not on file documented as of this encounter Miscellaneous Notes * Telephone Encounter - Malia Mason RN - 03/21/2024 3:51 PM EST Helper/Driver attempted to contact patient. No answer. Left message for patient to contact office regarding RAP result. Left office phone number for reference. 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 Recommend continue Singulair and Zyrtec. Consider air purifier for home and hypoallergenic pillow. Could offer education department chair referral as well if patient agreeable. ----- Message from Dr. Mariah Peña, DO sent at 03/21/2024 2:04 PM EST ----- Please update patient that she has multiple moderate allergies to environment and she is highly sensitized to dogs and cats- avoidance would be advised. Recommend continue Singulair and Zyrtec. Consider air purifier for home and hypoallergenic pillow. Could offer education department chair referral as well if she is agreeable. documented in this encounter Plan of Treatment Not on file documented as of this encounter Visit Diagnoses Not on filedocumented in this encounter Additional Health Concerns Assessment Noted Time PHQ-9 Depression Total Score: 0 03/03/19 23 1:33 PM EST documented as of this encounter Care Teams Enrobing Machine Feeder Relationship Specialty Start Date End Date Corine Gold MD [address] [facility] [place] [address] PCP - General Internal Medicine 03/25/24 documented as of this encounter
--- OUTSIDE RECORDS SUMMARY | 2024-09-09 00:24 | XMS_ITS | Encounter Summary ---
Author Organization [facility] tem Address [id number] [address] [place] [address] Care Team Providers Care Picker / Packer Name Role Phone Corine Gold MD Primary Care Provider [phone] Encounter Details Date Type Department Care Team (Late st Contact Info) Description 11/12/2020 Telephone [facility] Neurology [address] [place] [phone] Ivy Zafar, DISHWASHING MACHINE REPAIRER-BAGGAGE HANDLER [address] [place] [address] Social History Tobacco Use Types Packs/Day Years Used Date Smoking Tobacco: Never Smokeless Tobacco: Never Alcohol Use Standard Drinks/Week Comments Never 0 (1 standard drink = 0.6 oz pur e alcohol) AUDIT-C Answer Date Recorded Frequency of Alcohol Consumption Never 05/28/2019 Average Number of Drinks Not on file 020 Frequency of Binge Drinking Not on file 08/2019 PHQ-2 Answer Date Recorded Total Score 14 05/06/2020 Childcare Answer Date Recorded Childcare Unknown 08/01/2018 Employment Answer Date Recorded Employment Unknown 08/01/2018 Purpose - Life Answer Date Recorded Purpose and direction in life Unknown Comments No Sex and Gender Information Value Date Recorded Sex Assigned at Not on file Legal Sex Female 11:52 AM EDT Gender Identity Not on file Sexual Orientation Not on file COVID-19 Exposure Response Date Recorded In the last month, have you been in contact with someone who was confirmed or suspected to have Coronavirus / COVID-19? No / Unsure 11/03/2020 4:26 PM EDT documented as of this encounter Plan of Treatment Not on file documented as of this encounter Visit Diagnoses Not on filedocumented in this encounter Additional Health Concerns Infection Onset Date Last Indicated Resolved Time Enteric Rule-Out 02/10/2024 02/10/2024 02/10/2024 4:50 AM EST COVID-19 Rule-Out 02/10/2024 02/09/2024 02/10/2024 3:36 AM EST Assessment Noted Time PHQ-9 Depression Total Score: 14 021 1:59 PM EDT documented as of this encounter Care Teams Picker / Packer Relationship Specialty Start Date End Date Corine Gold MD [address] [facility] [place] [address] PCP - General Internal Medicine 03/25/24 documented as of this encounter
--- OUTSIDE RECORDS SUMMARY | 2024-09-09 00:24 | XMS_ITS | Encounter Summary ---
Author Organization [facility] Address [address] [place] [address] Care Team Providers Care Scaffolder Name Role Phone Abdifatah Brady (Historical) Primary Care Provide r Unavailable Source Comments In the event this information is protected by the Federal Confidentiality of Alcohol and Drug AbusePatient Records regulations: The Federal rules restrict any use of the information to criminally investigate or prosecute any alcohol or drug abuse patient.[facility] Encounter Details Date Type Department Care Team (Late st Contact Info) Description 09/02/2024 Orders Only Neurology Headache [facility] [address] [place] [address] Sagar Barth APRN.SCRAP COLLECTOR [address] [place] [address] Intractable chronic migraine without aura and without status migrainosus (Primary Dx) Social History Tobacco Use Types Packs/Day Years Used Date Smoking Tobacco: Never Smokeless Tobacco: Never PHQ-2 Answer Date Recorded PHQ-2 score 2 07/04/2024 Area Deprivation Index Answer Date Zi rded National Score (1-100), lower number is lower ri sk 94 06/23/2022 State Score (1-10), lower number is lower risk 9 06/23/2022 Data from: https://www.neighborhoodatlas.medicine.[facility]/. Last address used for calculation [address] [...] Contact Info) Description 09/24/2024 10:00 AM EDT [facility] Neurology [address] [place], [place] [id number] Griffin Lepe PA-C [address] [place] [address] Head ache control 10/25/2024 1:30 PM EDT [facility] [address] [place] [address] Vyepti documented as of this encounter Visit Diagnoses Diagnosis Intractable chronic migraine without aura and without status migrainosus- Primary Chronic migraine without aura, with intractable migraine, so stated, without mention of status migrainosus documented in this encounter Care Teams Scaffolder Relationship Specialty Start Date End Date Abdifatah Brady (Historical) PCP - General 05/21/13 documented as of this encounter
--- OUTSIDE RECORDS SUMMARY | 2024-09-09 00:24 | XMS_ITS | Encounter Summary ---
Author Organization [facility] Address [id number] [address] [place] [address] Care Team Providers Care Communications Supervisor Name Role Phone Corine Gold MD Primary Care Provider [phone] Encounter Details Date Type Department Care Team (Late st Contact Info) Description 06/07/2022 Telephone [facility] Internal Medicine - Family Medicine [address] [place] [address] Angélica Weber, UMANG-WHITE SOURER [address] [facility] [place] [address] Social History Tobacco Use Types Packs/Day Years [...] Purpose and direction in life Unknown Comments Unknown Sex and Gender Information Value Date Recorded Sex Assigned at Not on file Legal Sex Female 11:52 AM EDT Gender Identity Not on file Sexual Orientation Not on file documented as of this encounter Plan of Treatment Not on file documented as of this encounter Visit Diagnoses Not on filedocumented in this encounter Additional Health Concerns Infection Onset Date Last Indicated Resolved Time Enteric Rule-Out 02/10/2024 02/10/2024 02/10/2024 4:50 AM EST COVID-19 Rule-Out 02/10/2024 02/09/2024 02/10/2024 3:36 AM EST Assessment Noted Time PHQ-9 Depression Total Score: 0 03/03/19 1:33 PM EST documented as of this encounter Care Teams Communications Supervisor Relationship Specialty Start Date End Date Corine Gold MD [address] [facility] [place] [address] PCP - General Internal Medicine 03/25/24 documented as of this encounter
--- OUTSIDE RECORDS SUMMARY | 2024-09-09 00:24 | XMS_ITS | Encounter Summary ---
Author Organization [facility] Address [facility] [id number] [address] [place] [address] Care Team Providers Care Mass Spec Name Role Phone Corine Gold MD Primary Care Provider [phone] Reason for Visit * Reason Comments Med Refill Encounter Details Date Type Department Care Team (Late st Contact Info) Description 01/24/2022 Refill [facility] Internal Medicine - Family Medicine [address] [place] [phone] Darien Caicedo, DO [address] [facility] [place] [address] Moderate persistent asthma, unspecified whether complicated (Primary Dx) Social History Tobacco Use Types Packs/Day Years Used Date Smoking Tobacco: Never Smokeless Tobacco: Never Alcohol Use Standard Drinks/Week Comments Never 0 (1 standard drink = 0.6 oz pur e alcohol) AUDIT-C Answer Date Recorded Frequency of Alcohol Consumption Never 05/28/2019 Average Number of Drinks Not on file 020 Frequency of Binge Drinking Not on file 0408/2019 PHQ-2 Answer Date Recorded Total Score 14 [...] have Coronavirus / COVID-19? No / Unsure 01/27/2022 9:58 AM EST documented as of this encounter Plan of Treatment Not on file documented as of this encounter Visit Diagnoses Diagnosis Moderate persistent asthma, unspecified whether complicated- Primary documented in this encounter Additional Health Concerns Infection Onset Date Last Indicated Resolved Time Enteric Rule-Out 02/10/2024 02/10/2024 02/10/2024 4:50 AM EST COVID-19 Rule-Out 02/10/2024 02/09/2024 02/10/2024 3:36 AM EST Assessment Noted Time PHQ-9 Depression Total Score: 14 021 1:59 PM EDT documented as of this encounter Care Teams Mass Spec Relationship Specialty Start Date End Date Corine Gold MD [address] [place] [address] PCP - General Internal Medicine 03/25/24 documented as of this encounter
--- OUTSIDE RECORDS SUMMARY | 2024-09-09 00:24 | XMS_ITS | Encounter Summary ---
Author Organization [facility] Address [id number] [address] [place] [address] Care Team Providers Care Bail Attacher Name Role Phone Corine Gold MD Primary Care Provider Encounter Details Date Type Department Care Team (Late st Contact Info) Description 03/10/2021 Orders Only [facility] Neurology [address] [place] [phone] Ivy Zafar, CERTIFIED ADAPTED PHYSICAL EDUCATOR-CONCRETE PLACEMENT EQUIPMENT OPERATOR [address] [place] [address] Chronic mixed headache syndrome Social History Tobacco Use Types Packs/Day Years [...] have Coronavirus / COVID-19? No / Unsure 03/03/2021 8:28 AM EST documented as of this encounter Plan of Treatment Not on file documented as of this encounter Visit Diagnoses Diagnosis Chronic mixed headache syndrome Other headache syndromes documented in this encounter Additional Health Concerns Infection Onset Date Last Indicated Resolved Time Enteric Rule-Out 02/10/2024 02/10/2024 02/10/2024 4:50 AM EST COVID-19 Rule-Out 02/10/2024 02/09/2024 02/10/2024 3:36 AM EST Assessment Noted Time PHQ-9 Depression Total Score: 14 021 1:59 PM EDT documented as of this encounter Care Teams Bail Attacher Relationship Specialty Start Date End Date Corine Gold MD [address] [facility] [place] [address] PCP - General Internal Medicine 03/25/24 documented as of this encounter
--- OUTSIDE RECORDS SUMMARY | 2024-09-09 00:24 | XMS_ITS | Encounter Summary ---
Author Organization [facility] Address [facility] [place][id number] [address] [place] [address] Care Team Providers Care Raker Buffing Wheel Name Role Phone Corine Gold MD Primary Care Provider [phone] Encounter Details Date Type Department Care Team (Late st Contact Info) Description 09/02/2020 Orders Only [facility] Neurology [address] [place] [phone] Ivy Zafar, ICT SUPPORT AND TEST ENGINEERS-DESIGN TEACHER [address] [place] [address] Social History Tobacco Use Types Packs/Day Years [...] have Coronavirus / COVID-19? No / Unsure 08/09/2020 10:24 AM EDT documented as of this encounter Plan [...] documented as of this encounter Care Teams Raker Buffing Wheel Relationship Specialty Start Date End Date Corine Gold MD [address] [facility] [place] [address] PCP - General Internal Medicine 03/25/24 documented as of this encounter
--- OUTSIDE RECORDS SUMMARY | 2024-09-09 00:24 | XMS_ITS | Encounter Summary ---
Author Organization [facility] Address [facility] [place]-[id number] [address] [place] [address] Care Team Providers Care Customer Service Officer Name Role Phone Corine Gold MD Primary Care Provider [phone] Encounter Details Date Type Department Care Team (Late st Contact Info) Description 05/12/2020 Telephone [facility] Neurology [address] [place] [phone] Ivy Zafar, RESEARCH ARCHAEOLOGIST-BUS AND TROLLEY DISPATCHER [address] [place] [address] Social History Tobacco Use Types Packs/Day Years [...] have Coronavirus / COVID-19? No / Unsure 05/06/2020 1:43 PM EDT documented as of this encounter Miscellaneous Notes * Telephone Encounter - SARAHI Powell - 05/12/2020 1:31 PM EDT Per my chart I did call in Ms Nicholson in a medrol dose pack and Toradol oral to take to aid in breaking her headache. Closing note documented in this encounter Plan of Treatment [...] documented as of this encounter Care Teams Customer Service Officer Relationship Specialty Start Date End Date Corine Gold MD [address] [facility] [place] [address] PCP - General Internal Medicine 03/25/24 documented as of this encounter
--- OUTSIDE RECORDS SUMMARY | 2024-09-09 00:24 | XMS_ITS | Encounter Summary ---
Author Organization [facility] Address [address] [place] [address] Care Team Providers Care Seamer Elastic Band Name Role Phone Abdifatah Brady (Historical) Primary Care Provide r Unavailable Source Comments In the event this information is protected by the Federal Confidentiality of Alcohol and Drug AbusePatient Records regulations: The Federal rules restrict any use of the information to criminally investigate or prosecute any alcohol or drug abuse patient.[facility] Encounter Details Date Type Department Care Team (Late st Contact Info) Description 02/07/2024 Patient Msg Neurology [address] [place], [place] [id number] Provider, Rosa Betancourt for 2024 Social History Tobacco Use Types Packs/Day Years Used Date Smoking Tobacco: Never Smokeless Tobacco: Never PHQ-2 Answer Date Recorded PHQ-2 score 3 01/17/2024 Area Deprivation Index Answer Date Zi rded National Score (1-100), lower number is lower ri sk 94 06/23/2022 State Score (1-10), lower number is lower risk 9 06/23/2022 Data from: https://www.neighborhoodatlas.[facility]/. Last address used for calculation [address] [...] Contact Info) Description 09/24/2024 10:00 AM EDT [facility] Neurology [address] [place], [place] [phone] Griffin Lepe PA-C [address] [place] [address] Head ache control 10/25/2024 1:30 PM EDT [facility] Neurology [address] [place] [address] Vyepti documented as of this encounter Visit Diagnoses Not on filedocumented in this encounter Care Teams Seamer Elastic Band Relationship Specialty Start Date End Date Abdifatah Brady (Historical) PCP - General 05/21/13 documented as of this encounter
--- OUTSIDE RECORDS SUMMARY | 2024-09-09 00:24 | XMS_ITS | Encounter Summary ---
Author Organization [facility] tem Address [facility] [id number] [address] [place] [address] Care Team Providers Care Seed Laboratory Assistant Name Role Phone Corine Gold MD Primary Care Provider [phone] Encounter Details Date Type Department Care Team (Late st Contact Info) Description 05/29/2019 Telephone Maternal- Medicine at [facility] [address] [facility] [place] [phone] Radha Matson LPN Social History Tobacco Use Types Packs/Day Years Used Date Smoking Tobacco: Never Smokeless Tobacco: Never Alcohol Use Standard Drinks/Week Comments Never 0 (1 standard drink = 0.6 oz pur e alcohol) AUDIT-C Answer Date Recorded Frequency of Alcohol Consumption Never 05/28/2019 Average Number of Drinks Not on file 020 Frequency of Binge Drinking Not on file 08/2019 Childcare Answer Date Recorded Childcare Unknown 08/01/2018 Employment Answer Date Recorded Employment Unknown 08/01/2018 Comments Yes Sex and Gender Information Value Date Recorded [...] Rule-Out 02/10/2024 02/09/2024 02/10/2024 3:36 AM EST documented as of this encounter Care Teams Seed Laboratory Assistant Relationship Specialty Start Date End Date Corine Gold MD [address] [place] [address] PCP - General Internal Medicine 03/25/24 documented as of this encounter
--- OUTSIDE RECORDS SUMMARY | 2024-09-09 00:24 | XMS_ITS | Encounter Summary ---
Author Organization [facility] Address [address] [place] [address] Care Team Providers Care Nail Assembly Machine Operator Name Role Phone Abdifatah Brady (Historical) Primary Care Provide r Unavailable Source Comments In the event this information is protected by the Federal Confidentiality of Alcohol and Drug AbusePatient Records regulations: The Federal rules restrict any use of the information to criminally investigate or prosecute any alcohol or drug abuse patient.[facility] Encounter Details Date Type Department Care Team (Late st Contact Info) Description 03/23/2023 Patient Msg Neurology [address] [place], [place] [id number] Provider, Cc Hot information Social History Tobacco Use Types Packs/Day Years Used Date Smoking Tobacco: Never Smokeless Tobacco: Never PHQ-2 Answer Date Recorded PHQ-2 score 2 03/22/2023 Area Deprivation Index Answer Date Zi rded National Score (1-100), lower number is lower ri sk 94 06/23/2022 State Score (1-10), lower number is lower risk 9 06/23/2022 Data from: https://www.neighborhoodatlas.[facility]/. Last address used for calculation [address] [...] Contact Info) Description 09/24/2024 10:00 AM EDT [facility] Neurology [address] [place] [address] Griffin Lepe PA-C [address] [place] [address] Head ache control 10/25/2024 1:30 PM EDT [facility] Neurology [address] [facility] [place] [address] Vyepti documented as of this encounter Visit Diagnoses Not on filedocumented in this encounter Care Teams Nail Assembly Machine Operator Relationship Specialty Start Date End Date Abdifatah Brady (Historical) PCP - General 05/21/13 documented as of this encounter
--- OUTSIDE RECORDS SUMMARY | 2024-09-09 00:24 | XMS_ITS | Encounter Summary ---
Author Organization [facility] Address [facility] [place]-[id number] [address] [place] [address] Care Team Providers Care Casino Manager Name Role Phone Corine Gold MD Primary Care Provider [phone] Reason for Visit * Reason Comments Med Refill Encounter Details Date Type Department Care Team (Late st Contact Info) Description 05/08/2022 Refill [facility] Internal Medicine - Family Medicine [address] [place] [phone] Angélica Weber, CIAIO COUNTER MOLDER-STIPPLER [address] [facility] [place] [address] Social History Tobacco Use Types Packs/Day Years [...] have Coronavirus / COVID-19? No / Unsure 04/21/2022 11:29 AM EST documented as of this encounter [...] documented as of this encounter Care Teams Casino Manager Relationship Specialty Start Date End Date Corine Gold MD [address] [facility] [place] [address] PCP - General Internal Medicine 03/25/24 documented as of this encounter
--- OUTSIDE RECORDS SUMMARY | 2024-09-09 00:24 | XMS_ITS | Encounter Summary ---
Author Organization [facility] Address [facility] [place]-[id number] [address] [place] [address] Care Team Providers Care Linen Keeper Name Role Phone Corine Gold MD Primary Care Provider [phone] Encounter Details Date Type Department Care Team (Late st Contact Info) Description 08/17/2020 Orders Only [facility] Neurology [address] [place] [phone] Ivy Zafar, PLASTICS NURSE-VEST PRESSER [address] [place] [address] Social History Tobacco Use Types Packs/Day Years [...] documented as of this encounter Care Teams Linen Keeper Relationship Specialty Start Date End Date Corine Gold MD [address] [facility] [place] [address] PCP - General Internal Medicine 03/25/24 documented as of this encounter
--- OUTSIDE RECORDS SUMMARY | 2024-09-09 00:24 | XMS_ITS | Encounter Summary ---
Author Organization [facility] Sys tem Address [facility]-[id number] [address] [place] [address] Care Team Providers Care Clinical Psychology Teacher Name Role Phone Corine Gold MD Primary Care Provider [phone] Encounter Details Date Type Department Care Team (Late st Contact Info) Description 12/22/2020 Telephone [facility] Neurology [address] [place] [address] Aide Smalls RN Social History Tobacco Use Types Packs/Day [...] have Coronavirus / COVID-19? No / Unsure 12/24/2020 6:46 PM EDT documented as of this encounter Miscellaneous Notes * Telephone Encounter - Aide Brink RN - 12/22/2020 1:46 PM EDT Regarding: RE: Visit Follow-Up Question ----- Message from SARAHI Powell sent at 12/22/2020 1:00 PM EDT ----- ----- Message from Coni Nicholson to SARAHI Powell sent at 12/21/2020 2:54 PM ----- Schedule a follow up apt maybe see if there another emergency med that might help? ----- Message ----- From:Coni Nicholson Sent:12/21/2020 10:58 AM EDT To:SARAHI Powell Subject:RE: Visit Follow-Up Question I had a allergic reaction to my anxiety med called propranol it gave my a horrible migraine and trouble breathing could u please call me in a steroid and some toradal ----- Message ----- From:SARAHI Powell Sent:11/12/2020 1:23 PM EDT To:Coni Nicholson Subject:RE: Visit Follow-Up Question Hi Coni I called in the Medrol dose pack take as directed And the oral Toradol I hope that helps Karla HECK ----- Message ----- From:Coni Nicholson Sent:11/12/2020 10:48 AM EDT To:SARAHI Powell Subject:RE: Visit Follow-Up Question Yes that would be great. My pharmacy is [facility] [place] Please reply to this message by electronic messaging. ----- Message ----- From:SARAHI Powell Sent:11/12/2020 10:03 AM EDT To:Coni Nicholson Subject:RE: Visit Follow-Up Question Hi Coni I call call you in some oral Toradol and would you like a steroid dose pack also? Yes the injections were approved. Please verify your pharmacy Karla HECK ----- Message ----- From:Coni Nicholson Sent:11/11/2020 7:23 PM EDT To:Ivy Zafar APRN-COLLEGE ADMISSIONS COUNSELOR Subject:Visit Follow-Up Question Good afternoon Anyway you can send in a prescription of toradal this mingrain has been going on for 4 days now Manuel have so much homework I have to get done and need to be able to focus and any suggestions to helpme sleep as well? Did u by chance get those mingrain injections aproved? Please reply to this message by electronic messaging. * Telephone Encounter - Aide Brink RN - 12/22/2020 1:46 PM EDT Left message for return call. * Telephone Encounter - Aide Brink RN - 12/22/2020 1:46 PM EDT See other encounters. documented in this encounter Plan of Treatment [...] documented as of this encounter Care Teams Clinical Psychology Teacher Relationship Specialty Start Date End Date Corine Gold MD [address] [place] [place] [address] PCP - General Internal Medicine 03/25/24 documented as of this encounter
--- OUTSIDE RECORDS SUMMARY | 2024-09-09 00:24 | XMS_ITS | Encounter Summary ---
Author Organization [facility] Sys tem Address [facility] [place]-[id number] [address] [place] [address] Care Team Providers Care Material Loader Name Role Phone Corine Gold MD Primary Care Provider [phone] Encounter Details Date Type Department Care Team (Late st Contact Info) Description 08/26/2024 Orders Only [facility] Family Medicine [address] [place] [address] Mali Hart, UMANG-FERMENTATION MANAGER [address] [place] [address] Allergic reaction, sequela (Primary Dx) Social History Tobacco Use Types Packs/Day Years Used Date Smoking Tobacco: Never Smokeless Tobacco: Never Alcohol Use Standard Drinks/Week Comments Not Currently 0 (1 standard drink = 0.6 oz pur e alcohol) social C Utilities Answer Date Recorded In the past 12 months has [employer], gas, oil, or water [employer] threatened to shut off services in your home? No 04/08/2024 AUDIT-C Answer Date Recorded Q1: How often do you have a drink containing alc ohol? Monthly or less 04/08/2024 Q2: How many drinks containi ng alcohol do you have on a typical day when you are drinking? 1 or 2 04/08/2024 Q3: How often do you have si x or more drinks on one occasion? Never 04/08/2024 Overall Financial Resource Strain (CARDIA) Answe r Date Recorded How hard is it for you to pa y for the very basics like food, housing, medical care, and heating? Not hard at all 04/08/2024 PHQ-2 Answer Date Recorded Total Score 0 07/24/2024 PRAPARE - Transportation Answer Date Re corded In the past 12 months, has l ack of transportation kept you from medical appointments or from getting medications? No 03/23 In the past 12 months, has l ack of transportation kept you from meetings, work, or from getting things needed for daily living? No 04/08/2024 Housing Instability Answer Date Recorde d Are you worried or concerned that in the next two months you may not have stable housing that you own, rent or stay in as a part of a household? No 04/08/2024 Childcare Answer Date Recorded Childcare Unknown 08/01/2018 Employment Answer Date Recorded Employment Unknown 08/01/2018 Hunger Screening Answer Date Recorded Within the past 12 months we worried whether our food would run out before we got money to buy more. Never True 07/24/2024 Within the past 12 months th e food we bought just didn't last and we didn't have money to get more. Never True 07/24/2024 Purpose - Life Answer Date Recorded Purpose and direction in life Unknown Comments No Sex and Gender Information Value Date Recorded Sex Assigned at Not on file Legal Sex Female 11:52 AM EDT Gender Identity Not on file Sexual Orientation Not on file documented as of this encounter Plan of Treatment Not on file documented as of this encounter Goals Goal Patient Goal Type Associated Problems Recent Progress Patient-Stated? Author home General Yes Tamiko Buchanan RN Note: Evaluation of progress towards goal: Patient stated goal is to return home with [facility] for assistance with wound care documented as of this encounter Visit Diagnoses Diagnosis Allergic reaction, sequela- Primary documented in this encounter Additional Health Concerns Assessment Noted Time PHQ-9 Depression Total Score: 0 07/25/19 25 3:07 PM EDT documented as of this encounter Care Teams Material Loader Relationship Specialty Start Date End Date Corine Gold MD [address], [place] [address] PCP - General Internal Medicine 03/25/24 documented as of this encounter
--- OUTSIDE RECORDS SUMMARY | 2024-09-09 00:24 | XMS_ITS | Encounter Summary ---
Author Organization [facility] Address [address] [place] [address] Care Team Providers Care Spring Internship Name Role Phone Abdifatah Brady (Historical) Primary Care Provide r Unavailable Source Comments In the event this information is protected by the Federal Confidentiality of Alcohol and Drug AbusePatient Records regulations: The Federal rules restrict any use of the information to criminally investigate or prosecute any alcohol or drug abuse patient.[facility] Reason for Visit * Reason Onset Date Comments Refill Request 01/26/2024 Encounter Details Date Type Department Care Team (Late st Contact Info) Description 01/26/2024 Refill Neurology [address] [place] [address] Sagar Barth APRN.PLAYER PIANO TECHNICIAN [address] [place] [address] Refill Request Social History Tobacco Use Types Packs/Day Years Used Date Smoking Tobacco: Never Smokeless Tobacco: Never PHQ-2 Answer Date Recorded PHQ-2 score 3 01/17/2024 Area Deprivation Index Answer Date Zi rded National Score (1-100), lower number is lower ri sk 94 06/23/2022 State Score (1-10), lower number is lower risk 9 06/23/2022 Data from: https://www.neighborhoodatlas.medicine.[facility]/. Last address used for calculation [...] Pamela Florez RN documented in this encounter Miscellaneous Notes * Telephone Encounter - Eloina Gibbs LPN - 01/26/2024 4:14 PM EST MYC message sent to patient, refills should be available from order date of 11/10/23 for requested medications documented in this encounter Plan of Treatment Upcoming Encounters Date Type Department Care Team (Late st Contact Info) Description 09/24/2024 10:00 AM EDT [facility] Neurology [address] [place] [address] Griffin Lepe PA-C [address] [place] [address] Head ache control 10/25/2024 1:30 PM EDT [facility] Neurology [address] [place] [address] Vyepti documented as of this encounter Visit Diagnoses Diagnosis Intractable chronic migraine without aura and without status migrainosus Chronic migraine without aura, with intractable migraine, so stated, without mention of status migrainosus documented in this encounter Care Teams Spring Internship Relationship Specialty Start Date End Date Abdifatah Brady (Historical) PCP - General 05/21/13 documented as of this encounter
--- OUTSIDE RECORDS SUMMARY | 2024-09-09 00:24 | XMS_ITS | Encounter Summary ---
Author Organization [facility] Address [address] [place] [address] Care Team Providers Care Plasma Processor Name Role Phone Abdifatah Brady (Historical) Primary Care Provide r Unavailable Source Comments In the event this information is protected by the Federal Confidentiality of Alcohol and Drug AbusePatient Records regulations: The Federal rules restrict any use of the information to criminally investigate or prosecute any alcohol or drug abuse patient.[facility] Encounter Details Date Type Department Care Team (Late st Contact Info) Description 12/07/2022 Get Medical Advice Neurology [address] [place] [address] Sagar Barth APRN.TUBING MILL OPERATOR [address] [place] [address] Medication Social History Tobacco Use Types Packs/Day Years Used Date Smoking Tobacco: Never Smokeless Tobacco: Never PHQ-2 Answer Date Recorded PHQ-2 score 4 11/10/2022 Area Deprivation Index Answer Date Zi rded National Score (1-100), lower number is lower ri sk 94 06/23/2022 State Score (1-10), lower number is lower risk 9 06/23/2022 Data from: https://www.neighborhoodatlas.medicine.[facility].edu/. Last address used for calculation [address] [...] encounter Miscellaneous Notes * Telephone Encounter - Bonnie Howard - 12/08/2022 9:49 AM EDT Patient last seen on 11/10/22. documented in this encounter Plan of Treatment Upcoming Encounters Date Type Department Care Team (Late st Contact Info) Description 09/24/2024 10:00 AM EDT [facility] Neurology [address] [place] [address] Griffin Lepe PA-C [address] [place] [address] Head ache control 10/25/2024 1:30 PM EDT [facility] Neurology [address] [place] [address] Vyepti documented as of this encounter Visit Diagnoses Not on filedocumented in this encounter Care Teams Plasma Processor Relationship Specialty Start Date End Date Abdifatah Brady (Historical) PCP - General 05/21/13 documented as of this encounter
--- OUTSIDE RECORDS SUMMARY | 2024-09-09 00:24 | XMS_ITS | Clinical Summary ---
Author Organization [facility] Address [address] [place] [address] Care Team Providers Care Monitor Tech Name Role Phone Abdifatah Brady (Historical) Primary Care Provide r Unavailable Allergies Active Allergy Reactions Criticality Noted Date Comments Adhesive Tape-Silicones Rash 12/03/2021 Azithromycin Other: See Comments 12/03/2021 Dihydroergotamine Intolerance Medium 07/27/2022 Chest tightness, numbness and tingling in bilateral extremities, increased anxiety Cephalexin Rash 12/03/2021 Levetiracetam Itching 11/11/2022 Prochlorperazine Intolerance Low 12/29/2023 Propranolol Hives,Other: See Comments 12/20/2020 Migrianes Pyrilamine-Dextromethorpha n Hives 01/07/2022 Metoclopramide Intolerance 12/03/2021 Vortioxetine Hives 08/06/2021 Eptinezumab-Jjmr Rash,Itching Low 05/02/2024 Patient described extreme itching located on her chest and arms (bilaterally). Medications lamoTRIgine (LAMICTAL) 150 mg tablet 2 Active diazePAM (VALIUM) 10 mg tablet 2 Active lithium carbonate 300 mg tablet 3 Active albuterol sulfate 90 mcg/actuation breath activated powder inhaler Inhale 2 Puffs as instructed every 6 hours as needed for wheezing/shortn ess of breath. 4 Active scopolamine (TRANSDERM-SCOP) patch 1.5 mg/72 hr (delivers 1 mg over 3 days)Indications :Intractable chronic migraine without aura and with status migrainosus,Naus ea Apply 1 Patch as directed every 72 hours. APPLY 1 DISC BEHIND THE EAR AT LEAST 4 HOURS PRIOR TO EXPOSURE AND EVERY 3 DAYS NEEDED. 4 Patch 2 5 Active magnesium oxide 400 mg magnesium cap Take 1 capsule by mouth daily at bedtime. 90 capsule 3 5 Active promethazine (PHENERGAN) 25 mg tabletIndication s:Intractable chronic migraine without aura and without status migrainosus Take 1 tablet by mouth every 4 hours as needed. FOR NAUSEA 90 tablet 5 5 Active keTORolac (TORADOL) 10 mg tablet Take 1 tablet by mouth every 6 hours as needed (severe migraine). 20 tablet 5 5 Active chlorzoxazone (PARAFON FORTE DSC) 500 mg tablet Take 1 tablet by mouth two times a day as needed for muscle spasm (migraine). 20 tablet 5 5 Active ZOLMitriptan (ZOMIG) 5 mg nasal spray Use 1 [place] in the nose as needed at onset of migraine headache. If symptoms persist or return, may repeat dose in other nostril after 2 hours. Maximum of 2 sprays per 24 hours 12 each 5 5 Active zavegepant (ZAVZPRET) 10 mg/actuation nasal sprayIndications :Intractable chronic migraine without aura and with status migrainosus Use one nasal spray at migraine onset. May use once per 24 hours. 6 each 11 08/08/2024 8:59 AM EDT 5 Active Active Problems Problem Noted Date Diagnosed Date Intractable chronic migraine without aura and without status migrainosus 09/19/2023 Chronic migraine without aur a, with intractable migraine, so stated, with status migrainosus 03/22/2023 Intractable chronic migraine without aura and with status migrainosus 06/24/2022 Seizure-like activity 04/01/2022 Psychogenic nonepileptic seizure 10/20/2021 Encounters Date Type Department Care Team Description 09/02/2024 Orders Only Neurology Headache [facility] [address] [place] [address] Sagar Barth, CRTT.REMARKETING REP Intractable chronic migraine without aura and without status migrainosus (Primary Dx) 08/30/2024 Orders Only Neurology Headache [facility] [address] [facility] [place] [address] Sagar Barth, CRTT.REMARKETING REP 08/16/2024 Get Medical Advice Neurology Headache [facility] [address] [facility] [place] [address] Sagar Barth, CRTT.REMARKETING REP Infusion 08/15/2024 Get Medical Advice Neurology [address] [place] [address] Griffin Lepe PA-C Heads pounding 08/05/2024 Telephone [facility] Home Delivery [address] [place] [address] Rhiannon Bobo Insurance Authorization (Zavzpret 10MG/ACT solution); Zavzpret 10MG/ACT solution 08/02/2024 11:00 AM EDT Office Visit Neurology [address] [place] [address] Griffin Lepe PA-C Intractable chronic migraine without aura and with status migrainosus (Primary Dx); Status migrainosus 08/02/2024 10:00 AM EDT [facility] Neurology [address] [place] [address] Chronic migraine without aura, with intractable migraine, so stated, with status migrainosus (Primary Dx); Intractable chronic migraine without aura and with status migrainosus 08/01/2024 11:00 AM EDT [facility] Neurology [address] [place] [address] Intractable chronic migraine without aura and without status migrainosus (Primary Dx) 07/05/2024 Telephone Neurology [address] [place] [address] Griffin Lepe PA-C Infusion (Headache infusion scheduling) 07/04/2024 11:00 AM EDT [facility] Neurology [address] [place] [address] Griffin Lepe PA-C Status migrainosus (Primary Dx); Intractable chronic migraine without aura and without status migrainosus; Generalized anxiety disorder; Chronic migraine without aura, with intractable migraine, so stated, with status migrainosus; Intractable chronic migraine without aura and with status migrainosus 07/04/2024 Travel 06/12/2024 Patient Msg Neurology [address] [place] [address] Provider, [facility] Know Your Triggers, Own Your Day: Taking Control of Migraine from Last 3 Months Social History Tobacco Use Types Packs/Day Years Used Date Smoking Tobacco: Never Smokeless Tobacco: Never Tobacco Cessation:Counseling Given: Not Answered PHQ-2 Answer Date Recorded PHQ-2 score 2 07/04/2024 Area Deprivation Index Answer Date Zi rded National Score (1-100), lower number is lower ri sk 94 06/23/2022 State Score (1-10), lower number is lower risk 9 06/23/2022 Data from: https://www.neighborhoodatlas.medicine.[facility]/. Last address used for calculation [address] 06/23/2022 Comments No Sex and Gender Information Value Date Recorded Sex Assigned at Not on file Legal Sex Female 10:32 AM EDT Gender Identity Not on file Sexual Orientation Not on file Last Filed Vital Signs Vital Sign Reading Time Taken Comments Blood Pressure 124/77 08/02/2024 12:12 PM EDT Pulse 97 08/02/2024 12:12 PM EDT Temperature 36.3 C (97.3 F) 01/19/2024 10:00 AM EST Respiratory Rate 18 04/01/2022 4:00 PM EST Oxygen Saturation 97% 01/22/2024 1:3 5 PM EST on room air Inhaled Oxygen Concentration - - Weight 118.8 kg (261 lb 12. 7 oz) 09/19/2023 2:22 PM EDT Height 158.4 cm (5' 2.36 ) 09/19/2023 2 :22 PM EDT Body Mass Index 47.33 09/19/2023 2:22 PM EDT Plan of Treatment Upcoming Encounters Date Type Department Care Team (Late st Contact Info) Description 09/24/2024 10:00 AM EDT [facility] Neurology [address] [place] [address] Griffin Lepe PA-C [address] [place] [address] Head ache control 10/25/2024 1:30 PM EDT [facility] Neurology [address] [place] [address] Vyepti Health Maintenance Due Date Last Done Comments Anxiety Screening 11/13/2013 Depression Screening 11/13/2013 HIV Screening 11/13/2013 Hepatitis C Screening 11/13/2013 Cervical Cancer Screening 11/13/2016 Covid-19 Vaccine (2023- 5 season) 2023 Influenza Vaccine (#1) 2024 8, 12/31/2015, 11/27/2014, Additional history exists DTaP,Tdap,Td Vaccine (8 - Td or Tdap) 09/20/2025 09/21/2015, 10/24/2013, 09/07/2001, Additional history exists Hepatitis B Vaccine Completed 10/25/2002, 05/06/1996, 1995, Additional history exists Insurance [facility] MEDICAID [facility] MEDICAID MEDICAID Care Teams Monitor Tech Relationship Specialty Start Date End Date Abdifatah Brady (Historical) PCP - General 05/21/13
--- OUTSIDE RECORDS SUMMARY | 2024-09-09 00:24 | XMS_ITS | Encounter Summary ---
Author Organization [facility] Address [address] [place] [address] Care Team Providers Care Geriatric Nurse Practitioner Name Role Phone Abdifatah Brady (Historical) Primary Care Provide r Unavailable Source Comments In the event this information is protected by the Federal Confidentiality of Alcohol and Drug AbusePatient Records regulations: The Federal rules restrict any use of the information to criminally investigate or prosecute any alcohol or drug abuse patient.[facility] Encounter Details Date Type Department Care Team (Late st Contact Info) Description 06/12/2024 Patient Msg Neurology [address] [place] [id number] Provider, Ccf Know Your Triggers, Own Your Day: Taking Control of Migraine Social History Tobacco Use Types Packs/Day Years Used Date Smoking Tobacco: Never Smokeless Tobacco: Never PHQ-2 Answer Date Recorded PHQ-2 score 2 05/03/2024 Area Deprivation Index Answer Date Zi rded National Score (1-100), lower number is lower ri sk 94 06/23/2022 State Score (1-10), lower number is lower risk 9 06/23/2022 Data from: https://www.neighborhoodatlas.[facility]/. Last address used for calculation [address] 06/23/2022 Comments No Sex and Gender [...] Info) Description 09/24/2024 10:00 AM EDT [facility] Neurology [address] [place], [place] [id number] Griffin Lepe PA-C [address] [place], [place] [id number] Head ache control 10/25/2024 1:30 PM EDT [facility] Neurology [address] [place] [address] Vyepti documented as of this encounter Visit Diagnoses Not on filedocumented in this encounter Care Teams Geriatric Nurse Practitioner Relationship Specialty Start Date End Date Abdifatah Brady (Historical) PCP - General 05/21/13 documented as of this encounter
--- OUTSIDE RECORDS SUMMARY | 2024-09-09 00:24 | XMS_ITS | Encounter Summary ---
Author Organization [facility] Sys tem Address [id number] [address] [place] [address] Care Team Providers Care Customer Technical Services Manager Name Role Phone Corine Gold MD Primary Care Provider [phone] Encounter Details Date Type Department Care Team (Late st Contact Info) Description 08/26/2024 Telephone [facility] Pulmonary/Sleep Medicine [address] [address] Mariah Peña DO [address] [address] Social History Tobacco Use Types Packs/Day Years Used Date Smoking Tobacco: Never Smokeless Tobacco: Never Alcohol Use Standard Drinks/Week Comments Not Currently 0 (1 standard drink = 0.6 oz pur e alcohol) social [facility] Utilities Answer Date Recorded In the past 12 months has [employer], gas, oil, or water [employer] threatened to shut off services in your [...] encounter Miscellaneous Notes * Telephone Encounter - Shelley Marie - 08/26/2024 9:19 AM EDT With Provider: MARIAH PEÑA [[facility]UL[facility]EP [facility]] Preferred Date Range: 08/27/2024 - 09/07/2024 Preferred Times: Any Reason for Visit: Same Day Comments: Asthma and allergy flareup documented in this encounter Plan of Treatment Not on file documented as of this encounter Goals Goal Patient Goal Type Associated Problems Recent Progress Patient-Stated? Author home General Yes Tamiko Buchanan RN Note: Evaluation of progress towards goal: Patient stated goal is to return home with [facility] for assistance with wound care documented as of this encounter Visit Diagnoses Not on filedocumented in this encounter Additional Health Concerns Assessment Noted Time PHQ-9 Depression Total Score: 0 07/25/19 3:07 PM EDT documented as of this encounter Care Teams Customer Technical Services Manager Relationship Specialty Start Date End Date Corine Gold MD [address], [place] [address] PCP - General Internal Medicine 03/25/24 documented as of this encounter
--- OUTSIDE RECORDS SUMMARY | 2024-09-09 00:24 | XMS_ITS | Clinical Summary ---
Author Organization [facility] Address [facility] [place]-[id number] [address] [place] [address] Care Team Providers Care Bus Trolley And Taxi Instructor Name Role Phone Corine Gold MD Primary Care Provider [phone] Allergies Active Allergy Reactions Criticality Noted Date Comments Adhesive Rash Medium 08/06/2021 Adhesive Tape-Silicones 12/08/2016 Bee Venom Protein (Honey Bee) Anaphylaxis High 01/24/2023 Buspirone Hives Low 08/06/2021 Carbamazepine Other (See Comments) 12/24/2020 anxiety Ciprofloxacin Hives 12/12/2022 Clindamycin Hives 06/25/2020 Prochlorperazine Anxiety Low 12/29/2023 Dexamethasone Hives 03/18/2024 Dextromethorphan Hives 12/12/2022 Dihydroergotamine GI Disturbance,Hives Medium 07/27/2022 Other Reaction(s): Intolerance Chest tightness, numbness and tingling in bilateral extremities, increased anxiety Eptinezumab-Jjmr Itching,Rash Low 05/02/2024 Patient described extreme itching located on her chest and arms (bilaterally). Cephalexin Hives 12/08/2016 Levetiracetam Hives,Itching 11/11/2022 Metoclopramide Hives,Other (See Comments) 12/24/2020 Propranolol Hcl Hives,Other (See Comments) 12/24/2020 Migrianes Pyrilamine-Dextromethorpha n Hives 03/03/2022 Metoclopramide Hcl Itching,Anxiety Low 12/08/2016 No rash Vortioxetine Hives 08/06/2021 Azithromycin Hives 12/08/2016 Medications diazePAM (VALIUM) 10 mg tablet Take 0.5 tablets (5 mg total) by mouth in the morning and at bedtime. Active lithium carbonate 300 mg tablet Take 2 tablets (600 mg total) by mouth nightly. 2 Active cetirizine (ZyrTEC) 10 mg tablet Take 1 tablet (10 mg total) by mouth in the morning. 30 tablet 3 Active albuterol (PROVENTIL,VENT DEVEN) 2.5 mg /3 mL (0.083 %) nebulizer solutionIndicat ions:Moderate asthma with acute exacerbation, unspecified whether persistent Inhale 3 mL (2.5 mg total) by nebulization 4 (four) times a day as needed for wheezing. 360 mL 10 5 Active fluticasone-ume clidin-vilanter (TRELEGY ELLIPTA) 200-62.5-25 mcg blister with deviceIndicatio ns:Moderate asthma with acute exacerbation, unspecified whether persistent Inhale 1 puff in the morning. 60 each 11 5 Active lamoTRIgine (LaMICtal) 200 mg tablet Take 1 tablet (200 mg total) by mouth in the morning and 1 tablet (200 mg total) before bedtime. 4 Active traZODone (DESYREL) 300 MG tablet Take 1 tablet (300 mg total) by mouth nightly. 5 Active acetaminophen (TYLENOL EXTRA STRENGTH) 500 mg tablet Take 2 tablets (1,000 mg total) by mouth every 6 (six) hours as needed for pain. 30 tablet 2 5 Active ibuprofen (MOTRIN) 800 mg tabletIndicatio ns:Post-op pain Take 1 tablet (800 mg total) by mouth 3 (three) times a day. 21 tablet 5 Active lidocaine (XYLOCAINE) 5 % ointmentIndicat ions:Post-opera tive pain Apply 1 Application topically as needed for pain. 35.44 g 5 Active ketoconazole (NIZORAL) 2 % shampoo Apply 1 Application topically 2 (two) times a week. Apply to damp skin, lather, leave on 5 minutes, and rinse 120 mL 5 Active baclofen (LIORESAL) 10 mg tabletIndicatio ns:Muscle spasm Take 1 tablet (10 mg total) by mouth nightly. 30 tablet 3 5 Active scopolamine (TRANSDERM-SCOP ) 1 mg/[address] 1 patch on the skin every third day. 5 Active ubrogepant (UBRELVY) 100 mg tablet 5 Active estradioL (ESTRACE) 1 mg tabletIndicatio ns:Menopausal symptoms Take 1 tablet (1 mg total) by mouth in the morning. 30 tablet 3 5 Active albuterol (VENTOLIN HFA) 90 mcg/actuation inhalerIndicati ons:Moderate persistent asthma, unspecified whether complicated INHALE TWO PUFFS BY MOUTH EVERY 4 HOURS NEEDED 18 g 3 5 Active loratadine (CLARITIN) 10 mg tabletIndicatio ns:Seasonal allergic rhinitis, unspecified trigger Take 1 tablet (10 mg total) by mouth daily as needed for allergies. 90 tablet 1 5 Active phentermine 37.5 MG capsuleIndicati ons:Weight loss Take 1 capsule (37.5 mg total) by mouth every morning. 30 capsule 5 Active fluticasone propionate (FLONASE) 50 mcg/actuation nasal sprayIndication s:Seasonal allergic rhinitis, unspecified trigger administer 1 spray IN EACH NOSTRIL EVERY OTHER DAY 16 g 2 5 Active mupirocin (BACTROBAN) 2 % ointmentIndicat ions:Eye infection, bilateral Apply 1 Application topically in the morning and 1 Application before bedtime. 22 g 1 5 Active EPINEPHrine (EPIPEN) 0.3 mg/0.3 mL auto-injectorIn dications:Aller gic reaction, sequela 0.3 mL (0.3 mg total) by other route as needed (exposure to allergen). 2 each 1 5 Active Hospital, Clinic, or Other Facility Administered Medication Ordered Dose Route Frequency Start Date End Date Status diazePAM (VALIUM) tablet 5 mgIndications:Psychogenic nonepileptic seizure 5 mg oral 2 times daily 03/28/2024 A ctive Active Problems Problem Noted Date Diagnosed Date Eye infection, bilateral 07/24/2024 Ingrown nail of great toe 07/24/2024 Abdominal wall cellulitis 04/08/2024 Postoperative surgical compl ication involving genitourinary system associated with genitourinary procedure 04/08/2024 S/P bilateral salpingo-oophorectomy 03/28/2024 Chronic migraine without aur a without status migrainosus, not intractable 01/24/2023 Mild persistent asthma with (acute) exacerbation 01/24/2023 Polycystic ovaries 01/24/2023 Acute cough 01/27/2022 Asthma without status asthmaticus 12/29/2021 Anxiety 12/29/2021 Depressive disorder 12/29/2021 Psychogenic nonepileptic seizure 10/20/2021 Migraine with aura and witho ut status migrainosus, not intractable 08/06/2021 Bilateral occipital neuralgia 08/06/2021 Encounter for observation of suspected anomaly not found 06/04/2019 Resolved Problems Problem Noted Date Diagnosed Date Resolved Date Seizure-like activity 10/19/20212024 LOC (loss of consciousness) 08/06/2021 07/24/2024 Simple partial seizure disorder 02/18/2020 04/25/2024 Encounters Date Type Department Care Team Description 08/26/2024 Telephone [facility] Pulmonary/Sleep Medicine [address] [address] Mariah Peña DO 08/26/2024 Orders Only [facility] Family Medicine [address] [place] [address] [place] [address] Mali Hart APRN-CNP Allergic reaction, sequela (Primary Dx) 07/24/2024 3:00 PM EDT Office Visit [facility] [address] [place] [address] [place] [address] Halima Johns APRN-CNP Eye infection, bilateral (Primary Dx); Ingrown nail of great toe 07/24/2024 Travel from Last 3 Months Immunizations Immunization Administration Dates Next Due DTaP 09/07/2001 DTaP / HIB / IPV 03/05/1997, 7,05/06/1996,01/14 HPV Quadrivalent 05/22/2012,01/20/2012, 2 Hep B, Adolescent or Pediatric 3,05/06/1996,1995,11/14 IPV 09/07/2001 Influenza (IM) Preservative Free 016,11/27/2014,10/23/2012,11/14 Influenza, Injectable, Mdck, Preservative Free, Quad 12/08/2017 MMR 09/07/2001,03/05/1997 Meningococcal MCV4P 11/15/2011 Tdap 09/21/2015 Varicella 11/15/2011,10/25/2002 Family History Medical History Relation Name Comments Anesthesia problems Father prolonge d emergence Cystic fibrosis Father Ovarian cancer Maternal Aunt Anesthesia problems Mother Prolonge d emergence Cystic fibrosis Mother Relation Name Status Comments Father Alive Maternal Aunt Mother Alive Sister 1 Alive Sister 2 Alive Sister 3 Alive Social History Tobacco Use Types Packs/Day Years Used Date Smoking Tobacco: Never Smokeless Tobacco: Never Tobacco Cessation:Counseling Given: Not Answered Alcohol Use Standard Drinks/Week Comments Not Currently 0 (1 standard drink = 0.6 oz pur e alcohol) UYA100ities Answer Date Recorded In the past 12 months has [place], gas, oil, or water [place] threatened to shut off services in your [...] Sign Reading Time Taken Comments Blood Pressure 122/76 07/24/2024 3:07 PM EDT Pulse 102 07/24/2024 3:07 PM EDT Temperature 36.7 C (98 F) 07/24/2024 3:07 PM EDT Respiratory Rate 18 05/15/2024 8:46 AM EDT Oxygen Saturation 99% 07/24/2024 3:07 PM EDT Inhaled Oxygen Concentration - - Weight 115.6 kg (254 lb 12.8 oz) 07/24/2024 3:07 PM EDT Height 152.4 cm (5') 07/24/2024 3:07 PM EDT Body Mass Index 49.76 07/24/2024 3:07 PM EDT Plan of Treatment Health Maintenance Due Date Last Done Comments Adult BMI Follow Up Plan 11/13/2013 Influenza Vaccine 10/21/2024 12/08/2017, , 11/27/2014, Additional history exists Adult BMI Screening 07/24/2025 07/24/2024 Depression Screening 07/24/2025 07/24/2024 Tobacco Screening 07/24/2025 07/24/2024 DTaP,Tdap and Td Vaccines (7 - Td or Tdap) 09/20/2025 09/21/2015, 09/07/2001, 03/05/1997, Additional history exists Pap Smear Discontinued 04/16/2024 Goals Goal Patient Goal Type Associated Problems Recent Progress Patient-Stated? Author home General Yes Doing, PRATIBHA Morrison Note: Evaluation of progress towards goal: Patient stated goal is to return home with [facility] for assistance with wound care Medical Devices Not on file Insurance [place] [employer] [employer] Advance Directives * Full Code (Latest Code Status on File) Date Activated Date Inactivated Comments 03/28/2024 2:56 PM 03/28/2024 8:49 PM Care Teams Bus Trolley And Taxi Instructor Relationship Specialty Start Date End Date Corine Gold MD [address] [facility] [place] [address] PCP - General Internal Medicine 03/25/24
--- OUTSIDE RECORDS SUMMARY | 2024-09-09 00:24 | XMS_ITS | Encounter Summary ---
Author Organization [facility] Address [facility] [id number] [address] [place] [address] Care Team Providers Care Retail Loss Prevention Officer Name Role Phone Corine Gold MD Primary Care Provider [phone] Encounter Details Date Type Department Care Team (Late st Contact Info) Description 06/17/2021 Telephone [facility] Neurology [address] [place] [address] Aide Smalls RN Social History [...] Exposure Response Date Recorded In the last 10 days, have yo u been in contact with someone who was confirmed or suspected to have Coronavirus/COVID-19? No / Unsure 06/14/2021 7:59 PM EDT documented as of this encounter Miscellaneous Notes * Telephone Encounter - Aide Brink RN - 06/17/2021 10:51 AM EDT Regarding: Shots That would be great William Hooper As of now I have no availability. We can check with resident clinic if interested Karla HECK * Telephone Encounter - Aide Brink RN - 06/17/2021 10:51 AM EDT Please schedule in resident clinic. * Telephone Encounter - Johana Wiggins - 06/17/2021 10:51 AM EDT Patient is scheduled on 08/[address] De Dios documented in this encounter Plan of Treatment Not on file documented as of this encounter Visit Diagnoses Not on filedocumented in this encounter Additional Health Concerns Infection Onset Date Last Indicated Resolved Time Enteric Rule-Out 02/10/2024 02/10/2024 02/10/2024 4:50 AM EST COVID-19 Rule-Out 02/10/2024 02/09/2024 02/10/2024 3:36 AM EST Assessment Noted Time PHQ-9 Depression Total Score: 14 05/06/ 021 1:59 PM EDT documented as of this encounter Care Teams Retail Loss Prevention Officer Relationship Specialty Start Date End Date Corine Gold MD [address] [facility] [place] [address] PCP - General Internal Medicine 03/25/24 documented as of this encounter
--- OUTSIDE RECORDS SUMMARY | 2024-09-09 00:24 | XMS_ITS | Encounter Summary ---
Author Organization [facility] Address [id number] [address] [place] [address] Care Team Providers Care Credit Support Specialist Name Role Phone Corine Gold MD Primary Care Provider [phone] Encounter Details Date Type Department Care Team (Late st Contact Info) Description 08/18/2021 Telephone [facility] Neurology [address] [place] [address] Suzan Cason RN Social History Tobacco Use Types Packs/Day [...] have Coronavirus / COVID-19? No / Unsure 08/06/2021 1:49 PM EDT documented as of this encounter Miscellaneous Notes * Telephone Encounter - Suzan Cason RN - 08/18/2021 1:20 PM EDT ----- Message from Vielka Barboza MD sent at 08/17/2021 11:46 AM EDT ----- Regarding: RE: occipital nerve block Yes, the patient just needs to call the office and set it up. They will need to process prior authorization. Most likely I do not need to see her for regular appointment and she can follow-up with you. Thank you. Dr. Barboza ----- Message ----- From: Vicky De Dios MD Sent: 08/06/2021 4:42 PM EDT To: Vielka Barboza MD, Annetta Chaudhari Subject: occipital nerve block Hi Dr. Barboza, I have a new clinic patient who has migraine and also likely occipital neuralgia. Would you be ableto do nerve block for her as just a procedure or do you have to see her in clinic first? Vicky * Telephone Encounter - Anastacia Aguilar RN - 08/18/2021 1:20 PM EDT PA has been sent into [place] [facility] plan for ONB and TPI's. documented in this encounter Plan of Treatment [...] documented as of this encounter Care Teams Credit Support Specialist Relationship Specialty Start Date End Date Corine Gold MD [address] [facility] [place] [address] PCP - General Internal Medicine 03/25/24 documented as of this encounter
--- OUTSIDE RECORDS SUMMARY | 2024-09-09 00:24 | XMS_ITS | Encounter Summary ---
Author Organization [facility] Address [address] [place] [address] Care Team Providers Care Before School Babysitter Name Role Phone Abdifatah Brady (Historical) Primary Care Provide r Unavailable Source Comments In the event this information is protected by the Federal Confidentiality of Alcohol and Drug AbusePatient Records regulations: The Federal rules restrict any use of the information to criminally investigate or prosecute any alcohol or drug abuse patient.[facility] Encounter Details Date Type Department Care Team (Late st Contact Info) Description 04/11/2023 Patient Msg Neurology [address] [place], [place] [id number] Provider, [facility] Appointment scheduling Social History Tobacco Use Types Packs/Day Years Used Date Smoking Tobacco: Never Smokeless Tobacco: Never PHQ-2 Answer Date Recorded PHQ-2 score 2 03/22/2023 Area Deprivation Index Answer Date Zi rded National Score (1-100), lower number is lower ri sk 94 06/23/2022 State Score (1-10), lower number is lower risk 9 06/23/2022 Data from: https://www.neighborhoodatlas.[facility]/. Last address used for calculation [address] [...] Contact Info) Description 09/24/2024 10:00 AM EDT [facility] Neurology [address] [place] [address] Griffin Lepe PA-C [address] [place] [address] Head ache control 10/25/2024 1:30 PM EDT [facility] [address] [place] [place] [address] Vyepti documented as of this encounter Visit Diagnoses Not on filedocumented in this encounter Care Teams Before School Babysitter Relationship Specialty Start Date End Date Abdifatah Brady (Historical) PCP - General 05/21/13 documented as of this encounter
--- OUTSIDE RECORDS SUMMARY | 2024-09-09 00:24 | XMS_ITS | Encounter Summary ---
Author Organization [facility] Address [facility] [place] [address] Care Team Providers Care Teletypesetter Monitor Name Role Phone Abdifatah Brady (Historical) Primary Care Provide r Unavailable Source Comments In the event this information is protected by the Federal Confidentiality of Alcohol and Drug AbusePatient Records regulations: The Federal rules restrict any use of the information to criminally investigate or prosecute any alcohol or drug abuse patient.[facility] Encounter Details Date Type Department Care Team (Late st Contact Info) Description 06/08/2022 Get Medical Advice Neurology [address] [place] [address] Jesse Borrego MD [address] [place] [address] Migraines Social History Tobacco Use Types Packs/Day Years Used Date Smoking Tobacco: Never Assessed PHQ-2 Answer Date Recorded PHQ-2 score 4 10/29/2021 Area Deprivation Index Answer Date Zi rded National Score (1-100), lower number is lower ri sk 88 03/08/2022 State Score (1-10), lower number is lower risk N ot on file 03/08/2022 Data from: https://www.neighborhoodatlas.medicine.[facility]/. Last address used for calculation [address] 03/08/2022 Comments Unknown Sex and Gender Information Value Date Recorded Sex Assigned at Not on file Legal Sex Female 10:32 AM EDT Gender Identity Not on file Sexual Orientation Not on file documented as of this encounter Functional Status * Are you deaf or do you have serious difficulty hearing? Answer Date of Assessment Author No 04/01/2022 6:20 PM Pamela Folrez RN * Are you blind or do [...] Contact Info) Description 09/24/2024 10:00 AM EDT [facility] Neurology [address] [place] [address] Griffin Lepe PA-C [address] [place] [address] Head ache control 10/25/2024 1:30 PM EDT [facility] [address] [place] [address] Vyepti documented as of this encounter Visit Diagnoses Not on filedocumented in this encounter Care Teams Teletypesetter Monitor Relationship Specialty Start Date End Date Abdifatah Brady (Historical) PCP - General 05/21/13 documented as of this encounter
--- OUTSIDE RECORDS SUMMARY | 2024-09-09 00:24 | XMS_ITS | Encounter Summary ---
Author Organization [facility] Address [address] [place] [address] Care Team Providers Care Ambulette Driver Name Role Phone Abdifatah Brady (Historical) Primary Care Provide r Unavailable Source Comments In the event this information is protected by the Federal Confidentiality of Alcohol and Drug AbusePatient Records regulations: The Federal rules restrict any use of the information to criminally investigate or prosecute any alcohol or drug abuse patient.[facility] Encounter Details Date Type Department Care Team (Late st Contact Info) Description 08/30/2024 Orders Only Neurology Headache [facility] [address] [place] [address] Sagar Barth APRN.WIND UP WORKER [address] [place] [address] Social History Tobacco Use Types Packs/Day Years Used Date Smoking Tobacco: Never Smokeless Tobacco: Never PHQ-2 Answer Date Recorded PHQ-2 score 2 07/04/2024 Area Deprivation Index Answer Date Zi rded National Score (1-100), lower number is lower ri sk 94 06/23/2022 State Score (1-10), lower number is lower risk 9 06/23/2022 Data from: https://www.neighborhoodatlas.medicine.[facility]/. Last address used for calculation [...] Contact Info) Description 09/24/2024 10:00 AM EDT [facility] Neurology [address] [place] [address] Griffin Lepe PA-C [address] [place] [address] Head ache control 10/25/2024 1:30 PM EDT [facility] [address] [facility] [place] [address] Vyepti documented as of this encounter Visit Diagnoses Not on filedocumented in this encounter Care Teams Ambulette Driver Relationship Specialty Start Date End Date Abdifatah Brady (Historical) PCP - General 05/21/13 documented as of this encounter
--- OUTSIDE RECORDS SUMMARY | 2024-09-09 00:24 | XMS_ITS | Encounter Summary ---
Author Organization [facility] Address [facility] [place]-[id number] [address] [place] [address] Care Team Providers Care Field Seismologist Name Role Phone Corine Gold MD Primary Care Provider Encounter Details Date Type Department Care Team (Late st Contact Info) Description 05/23/2022 Refill [facility] Internal Medicine - Family Medicine [address] [place] [address] Irlanda Graham CMA Moderate persistent asthma, unspecified whether complicated Social History Tobacco Use Types Packs/Day Years [...] encounter Miscellaneous Notes * Telephone Encounter - Irlanda Graham CMA - 05/23/2022 1:51 PM EDT Pt needs new inhaler,please documented in this encounter Plan of Treatment Not on file documented as of this encounter Visit Diagnoses Diagnosis Moderate persistent asthma, unspecified whether complicated documented in this encounter Additional Health Concerns Infection Onset Date Last Indicated Resolved Time Enteric Rule-Out 02/10/2024 02/10/2024 02/10/2024 4:50 AM EST COVID-19 Rule-Out 02/10/2024 02/09/2024 02/10/2024 3:36 AM EST Assessment Noted Time PHQ-9 Depression Total Score: 0 03/03/19 1:33 PM EST documented as of this encounter Care Teams Field Seismologist Relationship Specialty Start Date End Date Corine Gold MD [address] [facility] [place] [address] PCP - General Internal Medicine 03/25/24 documented as of this encounter
--- OUTSIDE RECORDS SUMMARY | 2024-09-09 00:24 | XMS_ITS | Encounter Summary ---
Author Organization [facility] Address [address] [place] [address] Care Team Providers Care Senior Behavioral Scientist Name Role Phone Abdifatah Brady (Historical) Primary Care Provide r Unavailable Source Comments In the event this information is protected by the Federal Confidentiality of Alcohol and Drug AbusePatient Records regulations: The Federal rules restrict any use of the information to criminally investigate or prosecute any alcohol or drug abuse patient.[facility] Encounter Details Date Type Department Care Team (Late st Contact Info) Description 04/29/2024 Get Medical Advice Neurology [address] [place] [address] Griffin Leep PA-C [address] [place] [address] Infusions Social History Tobacco Use Types Packs/Day Years Used Date Smoking Tobacco: Never Smokeless Tobacco: Never PHQ-2 Answer Date Recorded PHQ-2 score 2 05/03/2024 Area Deprivation Index Answer Date Zi rded National Score (1-100), lower number is lower ri sk 94 06/23/2022 State Score (1-10), lower number is lower risk 9 06/23/2022 Data from: https://www.neighborhoodatlas.medicine.[facility]/. Last address used for calculation [...] Contact Info) Description 09/24/2024 10:00 AM EDT [facility] Neurology [address] [place] [address] Griffin Lepe PA-C [address] [place] [address] Head ache control 10/25/2024 1:30 PM EDT [facility] [address] [place] [address] Vyepti documented as of this encounter Visit Diagnoses Not on filedocumented in this encounter Care Teams Senior Behavioral Scientist Relationship Specialty Start Date End Date Abdifatah Brady (Historical) PCP - General 05/21/13 documented as of this encounter
--- OUTSIDE RECORDS SUMMARY | 2024-09-09 00:24 | XMS_ITS | Encounter Summary ---
Author Organization [facility] Address [facility] [id number] [address] [place] [address] Care Team Providers Care Director Law Enforcement Name Role Phone Corine Gold MD Primary Care Provider [phone] Encounter Details Date Type Department Care Team (Late st Contact Info) Description 05/19/2022 Telephone [facility] Internal Medicine - Family Medicine [address] [place] [address] Alba Guadalupe, DEFLASH AND WASH OPERATOR-FENCE INSTALLER [address] [place] [address] Social History Tobacco Use Types Packs/Day Years [...] documented as of this encounter Care Teams Director Law Enforcement Relationship Specialty Start Date End Date Corine Gold MD [address] [facility] [place] [address] PCP - General Internal Medicine 03/25/24 documented as of this encounter
--- OUTSIDE RECORDS SUMMARY | 2024-09-09 00:25 | XMS_ITS | Clinical Summary ---
Author Organization [facility] Address [address] [place] [address], [address] [place] [address] Care Team Providers Care Dancing Master Name Role Phone Angélica Weber Pamela HECK - TAG MARKER Primary Care Provider [phone] Allergies Active Allergy Reactions Criticality Noted Date Comments Cephalexin Hives 12/24/2020 Propranolol Hcl Hives,Other (See Comments) 05/2020 Migrianes Metoclopramide Hives 12/24/2020 Carbamazepine Other (See Comments) 12/24/2020 anxiety Azithromycin Hives 12/24/2020 Medications SUMAtriptan (IMITREX) 100 MG tablet Take 100 mg by mouth 2 times daily as needed for Migraine Active diazePAM (VALIUM) 5 MG tablet Take 5 mg by mouth every 6 hours as needed for Anxiety. Active venlafaxine (EFFEXOR XR) 75 MG extended release capsule Take 75 mg by mouth daily Active lamoTRIgine (LAMICTAL) 25 MG tablet Take 2 tablets by mouth daily 30 tablet 3 2 Active FLUoxetine (PROZAC) 20 MG capsule Take 60 mg by mouth daily 10/21/19 22 Discontinu ed(Stop Taking at Discharge) gabapentin (NEURONTIN) 600 MG tablet Take 300 mg by mouth 3 times daily. 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/20/2021 Seizure-like activity 10/19/2021 Seizure disorder 10/19/2021 Social History Tobacco Use Types Packs/Day Years Used Date Smoking Tobacco: Never Smokeless Tobacco: Never Alcohol Use Standard Drinks/Week Comments Not Currently 0 (1 standard drink = 0.6 oz pur e alcohol) Comments No Sex and Gender Information Value Date Recorded Sex Assigned at Not on file Legal Sex Female 12:07 AM EST Gender Identity Not on file Sexual Orientation Not on file Last Filed Vital Signs Vital Sign Reading Time Taken Comments Blood Pressure 136/101 10/20/2021 12:00 PM EDT Pulse 85 10/20/2021 12:00 PM EDT Temperature 36.8 C (98.2 F) 10/20/2021 8:00 AM EDT Respiratory Rate 12 10/20/2021 12:00 PM EDT Oxygen Saturation 98% 10/20/2021 12:00 PM EDT Inhaled Oxygen Concentration - - Weight - - Height - - Body Mass Index - - Plan of Treatment Health Maintenance Due Date Last Done Comments Depression Screen 2007 HIV screen 11/13/2010 Hepatitis C screen 11/13/2013 Pap smear 11/13/2016 COVID-19 Vaccine ( season) 2023 Flu vaccine (#1) 09/20/2024 12/08/2017, 11/2015, 11/27/2014, Additional history exists DTaP/Tdap/Td vaccine (7 - Td or Tdap) 09/20/2025 09/21/2015, 09/07/2001, 03/05/1997, Additional history exists Hib vaccine Completed 03/05/1997, 06/20, 05/06/1996, Additional history exists Polio vaccine Completed 09/07/2001, 02/20, 07/05/1996, Additional history exists Hepatitis B vaccine Completed 10/25/2002, 05/06/1996, 1995, Additional history exists Meningococcal (ACWY) vaccine Completed 11/15/2011 Varicella vaccine Completed 11/15/2011, 10/25/2002 HPV vaccine Completed 05/22/2012, 12/23, 11/15/2011 Hepatitis A vaccine Aged Out No longe r eligible based on patient's age to complete this topic Meningococcal B vaccine Aged Out No l onger eligible based on patient's age to complete this topic Pneumococcal 0-49 years Vaccine Aged Out No longer eligible based on patient's age to complete this topic Insurance ON LICENSE OF [facility] Advance Directives * Full Code (Latest Code Status on File) Date Activated Date Inactivated Comments 10/19/2021 12:27 PM 10/20/2021 4:12 PM * Full Code Date Activated Date Inactivated Comments 10/19/2021 12:23 PM 10/19/2021 12:27 PM Care Teams Dancing Master Relationship Specialty Start Date End Date Angélica Weber, COUNSELING AIDE - TAG MARKER [address] [place] [address] PCP - General Nurse Practitioner 12/24/20
--- OUTSIDE RECORDS SUMMARY | 2024-09-09 00:25 | XMS_ITS | Encounter Summary ---
Author Organization [facility] Address [address] [place] [address], [address] [place] [address] Care Team Providers Care Infantry Senior Sergeant Name Role Phone RandellAngélica rick Pamela Tang CNP Primary Care Provider [phone] Reason for Referral * Other (Routine) - Closed Specialty Diagnoses / Procedures Referred By Contselena t Referred To Contact Diagnoses Moderate persistent asthma with exacerbation Procedures Full PFT Study With Bronchodilator Alba Guadalupe APRN - CNP [address] [place] [address] Phone: tel: fax: Referral ID Status Reason Start Date Expiration Date Visits Re quested Visits Authorized [id number] Closed 03/08/2022 03/08/2023 1 1 Encounter Details Date Type Department Care Team (Late st Contact Info) Description 03/08/2022 Transcribe Orders [facility] [address] [place] [id number] Alba Guadalupe APRN - CNP [address] [place] [address] Moderate persistent asthma with exacerbation (Primary Dx) Social History Tobacco Use Types [...] as of this encounter Plan of Treatment Scheduled Orders Name Type Priority Associated Diagnoses Orde r Schedule Full PFT Study With Bronchodilator PFT Routine Moderate persistent asthma with exacerbation Expected: 03/08/2022, Expires: 03/08/2023 documented as of this encounter Visit Diagnoses Diagnosis Moderate persistent asthma with exacerbation- Primary Unspecified asthma, with exacerbation documented in this encounter Care Teams Infantry Senior Sergeant Relationship Specialty Start Date End Date Angélica Weber, BATTERY VENT PLUG INSERTER - MANAGER PACKAGING [address] [place] [address] PCP - General Nurse Practitioner 12/24/20 documented as of this encounter
--- OUTSIDE RECORDS SUMMARY | 2024-09-09 00:25 | XMS_ITS | Encounter Summary ---
Author Organization [facility] [employer] Address [id number] [address] [place] [address] Care Team Providers Care Experience Design Director Name Role Phone Corine Gold MD Primary Care Provider [phone] Reason for Visit * Reason Onset Date Comments reschedule 06/19/2020 Encounter Details Date Type Department Care Team (Late st Contact Info) Description 06/19/2020 [facility]phone [facility] [address] [place] [address] Katina Horne reschedule Social History Tobacco Use Types Packs/Day Years [...] encounter Miscellaneous Notes * Telephone Encounter - Katina Horne - 06/19/2020 4:02 PM EDT Spoke with patient to reschedule their appt with Ivy Zafar on 08/06. Patient stated that she would call back once she had her sales planner. Please reschedule patients appt to a Monday or Monday. If patients are upset please reschedule with Julio Evans or Katie Fowler for 60 minutes. Please add appt note if scheduled with one of these providers that states Ivy Patient, ok'd by Annetta . Please advise. documented in this encounter Plan of Treatment [...] documented as of this encounter Care Teams Experience Design Director Relationship Specialty Start Date End Date Corine Gold MD [address] [facility] [place] [address] PCP - General Internal Medicine 03/25/24 documented as of this encounter
--- OUTSIDE RECORDS SUMMARY | 2024-09-09 00:25 | XMS_ITS | Encounter Summary ---
Author Organization [facility] Address [address] [place] [address] Care Team Providers Care Neon Glass Bender Name Role Phone Abdifatah Brady (Historical) Primary Care Provide r Unavailable Source Comments In the event this information is protected by the Federal Confidentiality of Alcohol and Drug AbusePatient Records regulations: The Federal rules restrict any use of the information to criminally investigate or prosecute any alcohol or drug abuse patient.[facility] Encounter Details Date Type Department Care Team (Late st Contact Info) Description 01/16/2024 Patient Msg Neurology [address] [id number] Provider, [facility] Social History Tobacco Use Types Packs/Day Years Used Date Smoking Tobacco: Never Smokeless Tobacco: Never PHQ-2 Answer Date Recorded PHQ-2 score 3 01/17/2024 Area Deprivation Index Answer Date Zi rded National Score (1-100), lower number is lower ri sk 94 06/23/2022 State Score (1-10), lower number is lower risk 9 06/23/2022 Data from: https://www.neighborhoodatlas.[facility]/. Last address used for calculation [address] [...] Contact Info) Description 09/24/2024 10:00 AM EDT [facility] Neurology [address] [place] [address] Griffin Lepe PA-C [address] [place] [address] Head ache control 10/25/2024 1:30 PM EDT [facility] Neurology [address] [place] [address] Vyepti documented as of this encounter Visit Diagnoses Not on filedocumented in this encounter Care Teams Neon Glass Bender Relationship Specialty Start Date End Date Abdifatah Brady (Historical) PCP - General 05/21/13 documented as of this encounter
--- OUTSIDE RECORDS SUMMARY | 2024-09-09 00:25 | XMS_ITS | Encounter Summary ---
Author Organization [facility] Address [address] [place] [address] Care Team Providers Care Field Education Coordinator Name Role Phone Abdifatah Brady (Historical) Primary Care Provide r Unavailable Source Comments In the event this information is protected by the Federal Confidentiality of Alcohol and Drug AbusePatient Records regulations: The Federal rules restrict any use of the information to criminally investigate or prosecute any alcohol or drug abuse patient.[facility] Encounter Details Date Type Department Care Team (Late st Contact Info) Description 01/16/2024 Telephone Neurology Headache [facility] [address] [place] [address] Sagar Barth APRN.ADMINISTRATIVE OFFICER [address] [place], [place] [id number] Social History Tobacco Use Types Packs/Day Years Used Date Smoking Tobacco: Never Smokeless Tobacco: Never PHQ-2 Answer Date Recorded PHQ-2 score 3 01/17/2024 Area Deprivation Index Answer Date Zi rded National Score (1-100), lower number is lower ri sk 94 06/23/2022 State Score (1-10), lower number is lower risk 9 06/23/2022 Data from: https://www.neighborhoodatlas.medicine.[facility].edu/. Last address used for calculation [address] [...] of Assessment Author No 04/01/2022 6:20 PM EST Pamela Maciel RN * Are you blind or do you have serious difficulty seeing, even when wearing glasses? Answer Date of Assessment Author No 04/01/2022 6:20 PM EST Pamela Maciel RN * Do you have serious difficulty walking or climbing stairs? Answer Date of Assessment Author No 04/01/2022 6:20 PM EST Pamela Maciel RN * Do you have difficulty dressing or bathing? Answer Date of Assessment Author No 04/01/2022 6:20 PM EST Pamela Maciel RN * Because of a physical, mental, [...] encounter Miscellaneous Notes * Telephone Encounter - Michelle Givens RN - 01/16/2024 12:03 PM EST e27 message sent to provider who saw patient last (Ольга Shabazz APRN.CNP). Providers message pool is handing message. * Telephone Encounter - Bonnie Rodriguez - 01/16/2024 11:50 AM EST Name of Caller: Coni Relationship to patient: patient Last visit in this department: 09/19/2023 Reason for Call: Other : Pt asking if you would read the [employer] message and respond back to her tanner. Thanks Callback number: [phone] documented in this encounter Plan of Treatment Upcoming Encounters Date Type Department Care Team (Late st Contact Info) Description 09/24/2024 10:00 AM EDT [facility] Neurology [address] [place], [place] [phone] Griffin Lepe PA-C [address] [place], [place] [phone] Head ache control 10/25/2024 1:30 PM EDT [facility] Neurology [address] [place] [address] Vyepti documented as of this encounter Visit Diagnoses Not on filedocumented in this encounter Care Teams Field Education Coordinator Relationship Specialty Start Date End Date Abdifatah Brady (Historical) PCP - General 05/21/13 documented as of this encounter
--- OUTSIDE RECORDS SUMMARY | 2024-09-09 00:25 | XMS_ITS | Encounter Summary ---
Author Organization [facility] Address [address] [place] [address] Care Team Providers Care Senior Sql Database Developer Name Role Phone Abdifatah Brady (Historical) Primary Care Provide r Unavailable Source Comments In the event this information is protected by the Federal Confidentiality of Alcohol and Drug AbusePatient Records regulations: The Federal rules restrict any use of the information to criminally investigate or prosecute any alcohol or drug abuse patient.[facility] Encounter Details Date Type Department Care Team (Late st Contact Info) Description 03/29/2024 Patient Msg Neurology [address] [phone] Provider, Ccporsche [facility] Social History Tobacco Use Types Packs/Day Years Used Date Smoking Tobacco: Never Smokeless Tobacco: Never PHQ-2 Answer Date Recorded PHQ-2 score 3 03/20/2024 Area Deprivation Index Answer Date Zi rded National Score (1-100), lower number is lower ri sk 94 06/23/2022 State Score (1-10), lower number is lower risk 9 06/23/2022 Data from: https://www.neighborhoodatlas.[facility]/. Last address used for calculation Josr CHAKRABORTY [...] Contact Info) Description 09/24/2024 10:00 AM EDT [facility] Neurology [address] [place], [place] [phone] Griffin Lepe PA-C [address] [place], [place] [phone] Head ache control 10/25/2024 1:30 PM EDT [facility] Neurology [address] [place] [address] Vyepti documented as of this encounter Visit Diagnoses Not on filedocumented in this encounter Care Teams Senior Sql Database Developer Relationship Specialty Start Date End Date Abdifatah Brady (Historical) PCP - General 05/21/13 documented as of this encounter
--- OUTSIDE RECORDS SUMMARY | 2024-09-09 00:25 | XMS_ITS | Encounter Summary ---
Author Organization [facility] Address [address] [place] [address] Care Team Providers Care Dike Supervisor Name Role Phone Abdifatah Brady (Historical) Primary Care Provide r Unavailable Source Comments In the event this information is protected by the Federal Confidentiality of Alcohol and Drug AbusePatient Records regulations: The Federal rules restrict any use of the information to criminally investigate or prosecute any alcohol or drug abuse patient.[facility] Encounter Details Date Type Department Care Team (Late st Contact Info) Description 01/16/2024 Get Medical Advice Neurology [address] [place] [address] Griffin Lepe PA-C [address] [place] [address] [place] Social History Tobacco Use Types Packs/Day Years Used Date Smoking Tobacco: Never Smokeless Tobacco: Never PHQ-2 Answer Date Recorded PHQ-2 score 3 01/17/2024 Area Deprivation Index Answer Date Zi rded National Score (1-100), lower number is lower ri sk 94 06/23/2022 State Score (1-10), lower number is lower risk 9 06/23/2022 Data from: https://www.neighborhoodatlas.medicine.[facility]/. Last address used for calculation [address] [...] * Telephone Encounter - Bonnie Howard - 01/16/2024 2:09 PM EST Patient last seen on 12/05/23. documented in this encounter Plan of Treatment Upcoming Encounters Date Type Department Care Team (Late st Contact Info) Description 09/24/2024 10:00 AM EDT [facility] Neurology [address] [place] [address] Griffin Lepe PA-C [address] [place] [address] Head ache control 10/25/2024 1:30 PM EDT [facility] [address] [place] [address] Vyepti documented as of this encounter Visit Diagnoses Not on filedocumented in this encounter Care Teams Dike Supervisor Relationship Specialty Start Date End Date Abdifatah Brady (Historical) PCP - General 05/21/13 documented as of this encounter
--- OUTSIDE RECORDS SUMMARY | 2024-09-09 00:25 | XMS_ITS | Encounter Summary ---
Author Organization [employer] Address [id number] [address] [place] [address] Care Team Providers Care Marketing Development Specialist Name Role Phone Coirne Gold MD Primary Care Provider [phone] Reason for Visit * Reason Onset Date Comments Med Refill 04/29/2024 Encounter Details Date Type Department Care Team (Late st Contact Info) Description 04/29/2024 Refill [facility] [address] [place] [phone] Corine Gold MD [address] [place] [address] Social History Tobacco Use Types Packs/Day Years Used Date Smoking Tobacco: Never Smokeless Tobacco: Never Alcohol Use Standard Drinks/Week Comments Not Currently 0 (1 standard drink = 0.6 oz pur e alcohol) social [facility] Utilities Answer Date Recorded In the past 12 months has [employer], [employer], oil, or water [employer] threatened to shut off services in your [...] PHQ-2 Answer Date Recorded Total Score 0 04/25/2024 PRAPARE - Transportation Answer Date Re corded [...] got money to buy more. Never True 04/25/2024 Within the past 12 months th e food we bought just didn't last and we didn't have money to get more. Never True 04/25/2024 Purpose - Life Answer Date Recorded Purpose [...] Recent Progress Patient-Stated? Author home General Yes Chanel, PRATIBHA Morrison Note: Evaluation of progress towards goal: Patient stated goal is to return home with [facility] for assistance with wound care documented as of this encounter Visit Diagnoses Not on filedocumented in this encounter Additional Health Concerns Assessment Noted Time PHQ-9 Depression Total Score: 0 04/26/19 25 1:05 PM EST documented as of this encounter Care Teams Marketing Development Specialist Relationship Specialty Start Date End Date Corine Gold MD [address], [place] [address] PCP - General Internal Medicine 03/25/24 documented as of this encounter
--- OUTSIDE RECORDS SUMMARY | 2024-09-09 00:27 | XMS_ITS | CCD ---
Author Organization [facility] Care Team Providers Care Passenger Brakeman Name Role Phone Abdifatah rBady (Historical) Primary Care Provide r Unavailable Kuns ASSISTANT PLANT MANAGER - BUTTON TUFTING MACHINE OPERATOR, Derik Santiago Primary Care Provider [phone] DANIELKrupa DERIK Santiago Primary Care Unavailable KEVEN CHING Attending Unavailable Kuns ASSISTANT PLANT MANAGER - BUTTON TUFTING MACHINE OPERATOR, Derik Santiago Primary Care Provider 1( [phone] LUCILA MOTA Attending Unavailable KINGS STEWART Referring Unavailable DERIK ARTHUR Primary Care Unavailable [...] GOMEZ Primary Care Unavailable PAY ., DR UK Admitting Unavailable PAY ., DR KU Attending [...] MANJINDER Admitting Unavailable PATRICIA WALSH Consulting Unavailable [facility], DR GOMEZ Primary Care Unavailable HAY ., DR HARMAN Attending Unavailable HAY ., DR HARMAN Admitting Unavailable NEWATIA, NICHOLAS Consulting Unavailable UNLU, SINDY Consulting Unavailable ROOPA ., DR GUTIERREZ Admitting Unavailable ROOPA ., DR GUTIERREZ Consulting Unavailable [facility] Primary Care Unavailable ROOPA ., DR GUTIERREZ Attending Unavailable KUNS, DR DERIK Santiago Primary Care Unavailable ROOPA ., DR GUTIERREZ Admitting Unavailable ROOPA ., DR GUTIERREZ Attending Unavailable ROOPA ., DR GUTIERREZ Consulting Unavailable ROOPA ., DR GUTIERREZ Admitting Unavailable ROOPA ., DR GUTIERREZ Attending Unavailable NADERER, DR LAMONT Garcia Primary Care Unavailable [facility] Primary Care Unavailable HAY ., DR [...] Unavailable HAY ., DR HARMAN Consulting Unavailable RZIZOANKUR WHITTEN Consulting Unavailable ALECIA ., DENNIS Consulting Unavailable SANDHYA, DR DERIK Santiago Primary Care Unavailable ROOPA ., DR GUTIERREZ Admitting Unavailable ROOPA ., DR GUTIERREZ Attending Unavailable COELHO, MARIPOSA Consulting Unavailable LESLY, ALBA Primary Care Unavailable HAY ., DR HARMAN Attending Unavailable HAY ., DR HARMAN Consulting Unavailable HAY ., DR HARMAN Admitting Unavailable BRUNODOOT, NELI Consulting Unavailable Abdifatah Brady (Historical) Primary Care Provide r Unavailable Lamont Shay MD Primary Care Provider [phone] Lamont Shay MD Primary Care Provider Corine Gold MD Primary Care Provider [phone] Corine Gold MD Primary Care Provider [phone] Unavailable Primary Care Provider Unavaildeshaun Gibsonlocatscott MORENO, Noms Provider Primary Care [facility] Corine Gold MD Primary Care Provider Unavail able CORINE GOLD Primary Care Unavailable GIFTY RENO Referring Unavailable GIFTY RENO Attending Unavailable SAGAR BARTH Referring Unavailable ОЛЬГА AGUILAR Attending Unavailable GREEN, KOLI Referring Unavailable GREEN, KOLI Referring Unavailable GREENCAMERONI Attending Unavailable GREEN, KOLI Referring Unavailable GREEN, CAMERONI Referring Unavailable LEPECURTIS SILVERIO Attending Unavailable BIDDLECOM, SUZAN Referring Unavailable GREEN, KOLI Referring Unavailable BIDDLECOM, SUZAN Referring Unavailable LEPECURTIS SILVERIO Attending Unavailable CAMERON BARTHI Attending Unavailable BIDDLECOM, SUZAN Referring Unavailable LEPECURTIS Attending Unavailable BIDDLECOM, SUZAN Referring Unavailable RAIZA MORALES Attending Unavailable CURTIS LEPE Attending Unavailable ОЛЬГА AGUILAR Attending Unavailable BIDDLECOM, SUZAN Referring Unavailable Unavailable Primary Care Provider UnavailDariusz Rae Admitting Unavailable Dariusz Estrada Attending Unavailable Lamont Shay Primary Care Unavailable NON STAFF Primary Care Unavailable Ramsey Maloney Admitting Unavailab [place] Attending Unavailab le ROOPA, ZAY Attending Unavailable ROOPA, ZAY Attending Unavailable ROOPA, ZAY Attending Unavailable NADEREPamela, LAMONT Attending Unavailable ROOPA, ZAY Attending Unavailable ROOPA, ZAY Attending Unavailable NADERER, LAMONT Attending Unavailable ROOPA, ZAY Attending Unavailable NADERER, LAMONT Attending Unavailable NADERER, LAMONT Attending Unavailable NADERER, LAMONT Attending Unavailable ROOPA, ZAY Attending Unavailable ROOPA, ZAY Attending Unavailable Allergies Allergy Classification Reported Allergen(s) Allergy Type Date of Onset Reaction(s) Facility Anti-Epileptic Agents (1 source) levETIRAcetam Drug Allergy 023 Itching [facility] Work Phone: Cephalosporins (antibiotic) (1 source) Cephalexin Drug Allergy Rash [facility] Dextromethorphan / Pyrilamine (1 source) Dextromethorphan / Pyrilamine Drug Allergy 022 Hives [facility] Work Phone: Dihydroergotamine (1 source) Dihydroergotamine Drug Allergy Intolerance [facility] DOPamine Antagonists (1 source) Metoclopramide Drug Allergy Intolerance [facility] Macrolides (antibiotic) (1 source) Azithromycin Drug Allergy Other: See Comments [facility] vortioxetine (1 source) vortioxetine Drug Allergy 022 Hives [facility] (20 sources) Azithromycin; Translations: [AZITHROMYCIN] Drug Allergy Hives, Other: See Comments [email or web address] (20 sources) carBAMazepine Drug Allergy Other (See Comments) [email or web address] (20 sources) Cephalexin; Translations: [CEPHALEXIN] Drug Allergy Hives, Rash [email or web address] (20 sources) Metoclopramide; Translations: [METOCLOPRAMIDE] Drug Allergy Hives, Intolerance, Unknown, Rash, Other (See Comments) [email or web address] (20 sources) Propranolol Drug Allergy 021 Hives, Other (See Comments) [facility] (20 sources) Adhesive Tape-Silicones; Translations: [ADHESIVE TAPE-SILICONES] Drug Allergy 017 Rash [facility] (20 sources) Dextromethorphan / Pyrilamine; Translations: [PYRILAMINE-DEXTROME THORPHAN] Drug Allergy [facility] Work Phone: (20 sources) vortioxetine; Translations: [VORTIOXETINE] Drug Allergy [facility] Work Phone: (20 sources) Dihydroergotamine; Translations: [DIHYDROERGOTAMINE] Drug Allergy 023 Intolerance, GI intolerance, GI Disturbance, [facility] (1 source) Azithromycin Drug Allergy [facility] (1 source) bee venom Drug allergy (disorder) [facility] (1 source) Cephalexin Drug Allergy [facility] (1 source) Desonide Drug Allergy [facility] (1 source) Iothalamate Drug Allergy [facility] (2 sources) Propranolol; Translations: [PROPRANOLOL] Drug Allergy [facility] (1 source) [place] [facility] Drug allergy (disorder) [facility] (20 sources) levETIRAcetam; Translations: [LEVETIRACETAM] Drug Allergy 023 Itching, [facility] Work Phone: (1 source) Valproate Drug Allergy 024 [facility] Work Phone: (20 sources) busPIRone Drug Allergy 022 [facility] Work Phone: (20 sources) Carbamazepine Allergy to substance 021 Unknown [facility] (20 sources) Ciprofloxacin Drug Allergy 023 [facility] (20 sources) Clarithromycin Allergy to substance 024 GI intolerance [facility] (20 sources) Clindamycin Drug Allergy 021 Unknown, [facility] (20 sources) Dextromethorphan Drug Allergy [facility] (20 sources) Dextromethorphan / Pyrilamine Drug Allergy [facility] (20 sources) Honey bee venom Allergy to substance Unknown [facility] (20 sources) Levetiracetam Propensity to adverse reactions Itching [facility] (20 sources) Propranolol Drug Allergy Hives, Other: See Comments [facility] (20 sources) vortioxetine Drug Allergy [facility] (20 sources) Other Allergy to substance [facility] (20 sources) Wound Dressing Adhesive Drug Allergy Rash [facility] (20 sources) Prochlorperazine; Translations: [PROCHLORPERAZINE] Drug Allergy Intolerance, Anxiety [facility] (20 sources) Adhesive agent Propensity to adverse reactions to drug Rash [facility] (20 sources) Dexamethasone Drug Allergy Hives [facility] (20 sources) Metoclopramide Drug Allergy Itching, Anxiety [facility] (20 sources) Bee Venom Protein (Honey Bee) Propensity to adverse reactions to drug Anaphylaxis [facility] (20 sources) eptinezumab; Translations: [EPTINEZUMAB-JJMR] Drug Allergy Rash, Itching [facility] (1 source) Azithromycin Drug Allergy [facility] (1 source) Cephalexin Drug Allergy [facility] (1 source) levETIRAcetam Drug Allergy [facility] (1 source) Metoclopramide Drug Allergy [facility] (1 source) Prochlorperazine Drug Allergy [facility] Medications Current Medications Medication Drug Class(es) Dates Sig (Normalized) Sig (Original) [id number] 200 actuat albuterol 0.09 mg/actuat metered dose inhaler (20 sources) beta2-Adrenergic Agonist Start: 05-27-2024 take 2 puff(s) by inhalation every four hours albuterol HFA 90 mcg/act inhaler Inhale 2 puffs every 4 (four) hours if needed 05/27/2024 Active Start: 05-27-2024 take 2 puff(s) by mo uth every four hours as needed albuterol (VENTOLIN HFA) 90 mcg/actuation inhaler Indications: Moderate persistent asthma, unspecified whether complicated INHALE TWO PUFFS BY MOUTH EVERY 4 HOURS NEEDED 18 g 3 05/27/2024 Active Start: 03-20-2024 albuterol (2.5 MG/3ML) 0.083% nebulizer solution Inhale 2.5 mg 4 (four) times a day as needed 03/20/2024 Active Start: 03-20-2024 take 3 mL by inhalat ion four times daily as needed for wheezing [...] 3 11/06/2023 12/06/2023 Active Start: 06-07-2022 End: 05-24-2024 take 2 puff(s) by mouth every four hours as needed albuterol (VENTOLIN HFA) 90 mcg/actuation inhaler Indications: Moderate persistent asthma, unspecified whether complicated INHALE TWO PUFFS BY MOUTH EVERY 4 HOURS NEEDED 18 g 3 05/01/2024 05/24/2024 Discontinued (Reorder) Start: 06-07-2022 End: 03-20-2024 take 0.63 mg by inhalation every six hours as needed for wheezing and dyspnea and dyspnea albuterol (ACCUNEB) 0.63 mg/3 mL nebulizer solution Indications: SOB (shortness of breath) Inhale 3 mL (0.63 mg total) by nebulization every 6 (six) hours as needed for wheezing. 75 mL 1 06/07/2022 03/20/2024 Discontinued amitriptyline hydrochloride 100 mg oral tablet (5 sources) Tricyclic Antidepressant Start: 06-24-2024 take 1 tablet by mouth at bedtime amitriptyline (Elavil) 100 MG tablet Take 100 mg by mouth at bedtime 06/24/2024 Active amoxicillin 875 mg / clavulanate 125 mg oral tablet (6 sources) Penicillin-class Antibacterial Start: 05-21-2024 End: 05-31-2024 take 1 tablet by mouth once in the morning amoxicillin-pot clavulanate (AUGMENTIN) 875-125 mg per tablet Indications: Moderate persistent asthma with acute exacerbation , Acute pansinusitis, recurrence not specified Take 1 tablet by mouth in the morning and 1 tablet before bedtime. Do all this for 10 days. 20 tablet 05/21/2024 05/31/2024 Active Start: 04-10-2024 End: 04-17-2024 take 1 tablet [...] capsule (16 sources) Non-narcotic Antitussive Start: End: 025 take 1 capsule by mouth [...] toxin type A 200 Units injection (BOTOX) 12 hr carBAMazepine 100 mg extended release oral tablet (2 sources) Mood Stabilizer Start: take 1 tablet by mouth in the morning, then take 1 tablet by mouth every twelve hours at bedtime carBAMazepine XR (TEGretol XR) 100 MG 12 hr tablet Take 100 mg by mouth in the morning and 100 mg before bedtime. 08/28/2024 Active cetirizine hydrochloride 10 mg oral tablet (20 sources) Histamine-1 Receptor Antagonist Start: End: take 1 tablet by mouth in the morning cetirizine (ZyrTEC) 10 mg tablet Take 1 tablet (10 mg total) by mouth in the morning. 30 tablet 06/08/2022 Active chlorzoxazone 500 mg oral tablet (20 sources) Muscle Relaxant Start: End: take 1 tablet by mouth twice daily as needed for muscle spasms chlorzoxazone (Parafon Forte) 500 MG tablet Take 500 mg by mouth 2 (two) times a day as needed for muscle spasms 05/31/2024 Active Start: 10-12-2022 End: 12-09-2022 take 1 [...] minutes after.. 20 tablet 01/23/2024 02/09/2024 Discontinued [id number] 0.3 ml EPINEPHrine 1 mg/ml auto-injector (20 sources) alpha-Adrenergic Agonist, beta-Adrenergic Agonist, Catecholamine Start: 08-26-2024 EPINEPHrine (EPIPEN) 0.3 mg/0.3 mL auto-injector Indications: Allergic reaction, sequela 0.3 mL (0.3 mg total) by other route as needed (exposure to allergen). 2 each 1 08/26/2024 Active Start: 08-26-2024 EPINEPHrine (E PIPEN) 0.3 mg/0.3 mL auto-injector Indications: Allergic reaction, sequela 0.3 mL (0.3 mg total) by other route as needed (exposure to allergen). 2 each 1 08/26/2024 Active Start: 06-07-2022 End: 04-25-2024 EPINEPHrine (EPIPEN) 0.3 mg/ 0.3 mL auto-injector 0.3 mL (0.3 mg total) by other route as needed (exposure to allergen). 2 each 1 06/07/2022 04/25/2024 Discontinued estradiol 1 mg oral tablet (20 sources) Estrogen Start: 05-15-2024 End: 07-01-2024 take 1 tablet by mouth in the morning estradiol (Estrace) 1 MG tablet Indications: Low libido , Dyspareunia in female Take 1 tablet (1 mg) by mouth in the morning. 90 tablet 07/01/2024 Active Start: 04-15-2024 End: 04-25-2024 estradioL (VIVELLE-DOT) 0.05 [...] morning 30 tablet 3 06/29/2023 02/28/2024 Discontinued fluticasone propionate 0.05 mg/actuat metered dose nasal spray (12 sources) Corticosteroid Start: 06-10-2024 take 1 spray(s) nasal route once daily fluticasone (Flonase) 50 MCG/ACT nasal spray Administer 1 spray into each nostril Daily 06/10/2024 Active Start: 06-10-2024 take 1 spray(s) nasa l route every other day fluticasone propionate (FLONASE) 50 mcg/actuation nasal spray Indications: Seasonal allergic rhinitis, unspecified trigger administer 1 spray IN EACH NOSTRIL EVERY OTHER DAY 16 g 2 06/10/2024 Active Start: 06-06-2024 End: 06-10-2024 take 1 spray(s) nasal route every other day fluticasone propionate (FLONASE) 50 mcg/actuation nasal spray Indications: Seasonal allergic rhinitis, unspecified trigger Administer 1 spray into each nostril every other day. 18.2 mL 2 06/06/2024 06/10/2024 Discontinued gtfltvudgse-xqiaohntz-wnccuw er (TRELEGY ELLIPTA) 200-62.5-25 mcg blister with device (20 sources) Start: 03-20-2024 take 1 puff(s) by inhalation in the morning ctbrraguuos-iwzkstxqq-ptfehbqx (TRELEGY ELLIPTA) 200-62.5-25 mcg blister with device Indications: Moderate asthma with acute exacerbation, unspecified whether persistent Inhale 1 puff in the morning. 60 each 03/20/2024 Start: 03-20-2024 take 1 puff(s) by inhalation in the morning lrckzbyrzfm-gdhuewcas-xqaudpsq (TRELEGY ELLIPTA) 200-62.5-25 mcg blister with device [...] tablet (20 sources) Nonsteroidal Anti-inflammatory Drug Start: 04-15-2024 take 1 tablet by mouth every six hours as needed for pain ibuprofen 800 MG tablet Take 800 mg by mouth every 6 (six) hours if needed for moderate pain 04/15/2024 Active Start: 04-08-2024 End: 04-10-2024 take 1 tablet by mouth every six hours as needed for pain 800 mg, oral, Every 6 hours PRN, moderat e pain - pain scale 4-6, Starting on [...] (20 sources) Azole Antifungal Start: 04-25-2024 ketoconazole (NIZOral) 2 % shampoo Apply 1 Application topically 2 (two) times a week 04/25/2024 Active Start: 11-26-2021 End: 04-25-2024 ketoconazole [...] (Dose adjustment) lidocaine 0.05 mg/mg topical ointment (19 sources) Antiarrhythmic, Amide Local Anesthetic Start: 04-24-2024 lidocaine (XYLOCAINE ) 5 % ointment Indications: Post-operative pain Apply 1 Application topically as needed for pain. 35.44 g 04/24/2024 Active Start: 10-20-2021 lidocaine 4 % external patch 1 patch loperamide hydrochloride 2 mg oral capsule (1 source) Opioid Agonist Start: 10-20-2021 loperamide (IMODIUM) capsule 2 mg loratadine 10 mg oral tablet (11 sources) Start: 06-06-2024 take 1 tablet by mouth every twenty-four hours as needed loratadine (Claritin) 10 MG tablet Take 10 mg by mouth Daily as needed 06/06/2024 Active 24 hr loratadine 10 mg / pseudoephedrine sulfate 240 mg extended release oral tablet (5 sources) alpha-Adrenerg ic Agonist Start: 05-21-2024 End: 06-11-2024 take 1 tablet by mouth once in the morning, then take 1 tablet by mouth every twenty-four hours loratadine-pseudoe phedrine (CLARITIN-D 24-hour) 10-240 mg per 24 hr tablet Indications: Acute pansinusitis, recurrence not specified Take 1 tablet by mouth in the morning for 21 days. 21 tablet 05/21/2024 06/11/2024 Active Lumateperone Tosylate (Caplyta) 10.5 MG capsule (11 [...] 400 mg oral capsule (20 sources) Start: 06-04-2024 take 1 capsule by mouth once daily at bedtime magnesium oxide 400 mg magnesium cap Take 1 capsule by mouth daily at bedtime. 90 capsule 3 06/04/2024 Active Start: 07-10-2023 End: 05-31-2024 take 1 capsule by mouth once daily at bedtime magnesium oxide 400 mg magnesium cap Take 1 capsule by mouth daily at bedtime. 90 capsule 3 07/10/2023 05/31/2024 Discontinued Comment on above: magnesium 400 mg (as magnesium oxide) capsule methocarbamol 500 mg oral tablet (3 sources) Muscle Relaxant Start: 09-13-19 End: 10-13-19 take 1 tablet by mouth twice daily methocarbamol (ROBAXIN) 500 mg tablet Take 1 tablet by mouth twice daily. 60 tablet 2 09/12/2022 10/12/2022 Discontinued (Lack of Efficacy) Comment on above: Take 1 tablet by sami twice daily. metroNIDAZOLE 500 mg oral tablet (3 sources) Nitroimidazole Antimicrobial Start: 07-02-19 End: 07-09-19 take 1 tablet by mouth in the morning metroNIDAZOLE (Flagyl) 500 MG tablet Indications: BV (bacterial vaginosis) Take 1 tablet (500 mg) by mouth in the morning and 1 tablet (500 mg) before bedtime. Do all this for 7 days. Do not drink alcohol while taking this medication. 14 tablet 07/01/2024 07/08/2024 Active Start: 04-08-2024 End: 04-08-2024 500 mg, intravenous, at 100 mL/hr, Administer over 60 Minutes, Once, On Mon04/08/24 at 1450, For 1 dose, Look-alike/sound-alike medication - verify indication for use., Indication: Intra-abdominal mupirocin 0.02 mg/mg topical ointment (5 sources) RNA Synthetase Inhibitor Antibacterial Start: 07-24-2024 mupirocin (BACTR OBAN) 2 % ointment Indications: Eye infection, bilateral Apply 1 Application topically in the morning and 1 Application before bedtime. 22 g 1 07/24/2024 Active Start: 05-02-2024 End: 05-09-2024 mupirocin (BACTROBAN) 2 % oi ntment Indications: Postoperative infection, unspecified type, subsequent encounter Apply 1 Application topically in the morning and 1 Application before bedtime. Do all this for 7 days. 30 g 05/02/2024 05/02/2024 Discontinued (Reorder) Nirmatrelvir&Ritonavir 300/1 00 (Paxlovid, 300/100,) 20 x [...] take 1 capsule by mouth once daily omeprazole (PriLOSEC) [address] capsule Take 40 mg by mouth Daily 03/20/2024 Active Start: 01-27-2022 End: 04-08-2024 take [...] Discontinued (Reorder) phentermine hydrochloride 37.5 mg oral capsule (20 sources) Sympathomimetic Amine Anorectic Start: 06-06-2024 take 1 capsule by mouth once daily in the morning phentermine 37.5 MG capsule Indications: Weight loss Take 1 capsule (37.5 mg total) by mouth every morning. 30 capsule 06/06/2024 Active Start: 03-21-2023 End: 04-08-2024 take 1 tablet by mouth once daily before breakfast phentermine (ADIPEX-P) 37.5 mg tablet Take 1 tablet (37.5 mg total) by mouth every morning before breakfast. 01/10/2024 04/08/2024 Discontinued (Therapy completed) Comment on above: take 1 tablet by sami th every morning before meals polymyxin b [id number] unt/ml / trimethoprim 1 mg/ml ophthalmic solution (3 sources) Dihydrofolate Reductase Inhibitor Antibacterial, Polymyxin-class Antibacterial Start: 07-24-2024 trimethoprim-polymyxin b (Polytrim) ophthalmic solution 07/24/2024 Active Start: 07-24-2024 End: 07-29-2024 trimethoprim-polymyxin B (PO LYTRIM) 10,000 unit- 1 mg/mL drops Indications: Eye infection, bilateral Administer 1 drop to both eyes in the morning and 1 drop at noon and 1 drop in the evening and 1 drop before bedtime. Do all this for 5 days. 10 mL 07/24/2024 07/29/2024 Active microencapsulated potassium chloride 20 meq extended release oral tablet (2 sources) Start: 03-26-2024 End: 03-28-2024 take 1 tablet by mouth in the morning potassium chloride (KLOR-CON M 20) 20 MEQ CR tablet Take 1 tablet (20 mEq total) by mouth in the morning for 2 days. 2 tablet 03/26/2024 03/28/2024 Active predniSONE 20 mg oral tablet (16 sources) Start: 05-21-2024 End: 05-26-2024 take 1 tablet by mouth in the morning predniSONE (DELTASONE) 20 mg tablet Indications: Moderate persistent asthma with acute exacerbation Take 1 tablet (20 mg total) by mouth in the morning for 5 days. 5 tablet 05/21/2024 05/26/2024 Active Start: 01-23-2024 End: 01-29-2024 take 1 tablet by mouth once daily predniSONE (Deltasone) 50 MG tablet Indications: Mild persistent asthma with (acute) exacerbation ([facility]) Take 1 tablet (50 mg) by mouth [...] 3 days 39 tablet 11/15/2023 01/09/2024 Discontinued progesterone 100 mg oral capsule (2 sources) Progesterone Start: 09-03-2024 End: 09-03-2025 take 1 capsule by mouth once daily progesterone (Prometrium) 100 MG capsule Indications: Hot flashes due to surgical menopause Take 1 capsule (100 mg) by mouth Daily 30 capsule 09/03/2024 09/03/2025 Active promethazine hydrochloride 25 mg oral tablet (20 sources) Phenothiazine Start: 06-04-2024 End: 08-02-2024 take 1 tablet by mouth every four hours as needed for nausea promethazine (PHENERGAN) 25 mg tablet Indications: Intractable chronic migraine without aura and without status migrainosus Take 1 tablet by mouth every 4 hours as needed. FOR NAUSEA 90 tablet 5 06/04/2024 Active Start: 08-18-2023 End: 05-31-2024 take 1 tablet by mouth every four hours as needed for nausea promethazine (PHENERGAN) 25 mg tablet Indications: Intractable chronic migraine without aura and without status migrainosus Take 1 tablet by mouth every 4 hours as needed. FOR NAUSEA 90 tablet 5 11/10/2023 05/31/2024 Discontinued Start: 05-13-2023 End: 04-25-2024 take 1 tablet [...] mg/hr transdermal system (20 sources) Anticholinergic Start: 05-10-2024 scopolamine (TRANSDERM-SCOP) patch 1.5 mg/72 hr (delivers 1 mg over 3 days) Indications: Intractable chronic migraine without aura and with status migrainosus , Nausea Apply 1 Patch as directed every 72 hours. APPLY 1 DISC BEHIND THE EAR AT LEAST 4 HOURS PRIOR TO EXPOSURE AND EVERY 3 DAYS NEEDED. 4 Patch 2 05/10/2024 Active Start: 03-18-2024 End: 05-13-2024 apply 1 dose transdermal route once daily scopolamine (TRANSDERM-SCOP) 1 mg/[address] 1 patch on the skin every third day. 05/10/2024 Active scopolamine (Tra nsderm-Scop) 1 mg/72 hr patch [address] 1 patch on the skin every 3rd (third) day Active terconazole 4 mg/ml vaginal cream (1 source) Azole Antifungal Start: 01-15-2024 End: 01-22-2024 terconazole (Terazol 7) 0.4 % vaginal cream Indications: Yeast infection Insert 1 applicator into the vagina at bedtime for 7 days 45 g 01/15/2024 01/22/2024 Active 28 actuat tiotropium 0.06014 mg/actuat inhalation spray (20 sources) Anticholinergic Start: [...] 7 days 28 tablet 01/22/2024 01/29/2024 Active ubrogepant 100 mg oral tablet (20 sources) Start: 05-03-2024 End: 08-02-2024 Ubrelvy 100 MG tablet Take 100 mg by mouth if needed (migraine) 05/03/2024 Active zavegepant (ZAVZPRET) 10 mg/actuation nasal spray (6 sources) Start: 08-02-2024 zavegepant (ZAVZPRET) 10 mg/actuation nasal spray Indications: Intractable chronic migraine without aura and with status migrainosus Use one nasal spray at migraine onset. May use once per 24 hours. 6 each 08/08/2024 8:59 AM EDT 08/02/2024 Active Start: 08-02-2024 zavegepant (ZA VZPRET) 10 mg/actuation nasal spray Indications: Intractable chronic migraine without aura and with status migrainosus Use one nasal spray at migraine onset. May use once per 24 hours. 6 each 08/02/2024 Active ZOLMitriptan 5 mg/actuat nasal spray (20 sources) Serotonin-1b and Serotonin-1d Receptor Agonist Start: 06-04-2024 ZOLMitriptan (ZOMIG) 5 mg nasal spray Use 1 Helix in the nose as needed at onset of migraine headache. If symptoms persist or return, may repeat dose in other nostril after 2 hours. Maximum of 2 sprays per 24 hours 12 each 06/04/2024 Active Start: 03-17-2023 End: 05-31-2024 ZOLMitriptan (ZOMIG) 5 mg na lyn spray Use 1 Helix in the nose as needed at onset of migraine headache. If symptoms persist or return, may repeat dose in other nostril after 2 hours. Maximum of 2 sprays per 24 hours 12 Each 5 01/30/2024 05/31/2024 Discontinued Start: 06-24-2022 ZOLMitriptan ( ZOMIG) 5 mg nasal spray Use 1 Helix in the nose as needed at onset of migraine headache. If symptoms persist or return, may repeat dose in other nostril after 2 hours. Maximum of 2 sprays per 24 hours 10 Each 2 06/24/2022 Active Start: 06-24-2022 take 1 spray(s) nasa l route every twenty-four hours as needed ZOLMitriptan (ZOMIG) 5 mg nasal spray Use 1 Helix in the nose as needed. SPRAY IN 1 NOSTRIL AT ONSET OF MIGRAINE HEADACHE. If symptoms persist or return, may repeat dose after 2 hours. Maximum: 5 mg/dose; 10 mg per 24 hours 10 Each 2 06/24/2022 Active Comment on above: Use 1 Helix in the n ose as needed. SPRAY IN 1 NOSTRIL AT ONSET OF MIGRAINE HEADACHE. If symptoms persist or return, may repeat dose after 2 hours. Maximum: 5 mg/dose; 10 mg per 24 hours Use 1 Helix in the n ose as needed at [...] on Mon04/08/24 at 1825 Start: 03-28-2024 take 1 tablet by sami every six hours as needed Acetaminophen Extra Strength 500 MG tablet Take 500 mg by mouth every 6 (six) hours if needed (pain) 03/28/2024 Active Start: 03-28-2024 take 2 tablets by mo [facility] every six hours as needed for pain [...] 10/20/2021 Discontinued (Stop Taking at Discharge) diphenhydrAMINE (11 sources) Histamine-1 Receptor Antagonist Start: 08-02-2024 End: 08-02-2024 25 mg, INTRAVENOUS, NEEDED, 2 doses, Starting on Mon08/02/24 at 1013, Until Mon08/02/24 at 1453, Sedation/Dystonia/Akathi alessandra/Anxiety 3rd line Start: 05-02-2024 End: 05-02-2024 50 mg, INTRAVENOUS, NEEDE D, 1 dose, Starting on Meg 05/02/24 at 1156, Until Meg 05/02/24 at 1200, Administer per hypersensitivity/anaphylaxis grading in nursing communication Start: 04-09-2024 End: [...] grading in nursing communication Start: 01-05-2024 End: 11-15-2024 25 mg, INTRAVENOUS, NEEDE D, 2 doses, Starting on Mon01/05/24 at 1235, Until Mon01/05/24 at 1559, Sedation/Dystonia/Akathisia/Anxiety 3rd line Start: 10-13-2023 End: 10-13-2023 50 mg, INTRAVENOUS, NEEDE D, 1 dose, Starting on Mon10/13/23 at 1308, Until Mon10/13/23 at 1310, Administer per hypersensitivity/anaphylaxis grading in nursing communication Start: 12-24-2020 End: 12-24-2020 diphenhydrAMINE (BENADRYL) i njection 50 mg docusate sodium 50 mg / sennosides, correction 8.6 mg oral tablet (11 sources) Start: [...] hydrochloride 10 mg/ml injectable solution (1 source) Antiarrhythmic , alpha-Adrenerg ic Agonist, beta-Adrenergi c Agonist, Catecholamine, Amide Local Anesthetic Start: 04-08-2024 End: 04-08-2024 30 mL, intradermal, Once, On Mon04/08/24 at 1805, For 1 dose, Look-alike/sound-alike medication - verify indication for use. eptinezumab-jjmr 100 mg in NaCl 0.9% 100 mL (VYEPTI) (4 sources) Start: 08-01-2024 End: 08-01-2024 100 mg, INTRAVENOUS, at 200 mL/hr, Administer over 30 Minutes, ONCE, 1 dose, On Mon08/01/24 at 1100, EXP: Administer with 0.2 micron filter. Start: 05-02-2024 End: 05-02-2024 100 mg, INTRAVENOUS, [...] filter. 1 ml erenumab-aooe 140 mg/ml auto-injector (20 sources) Start: 07-10-2023 End: 09-19-2023 inject 1 mL by subcutaneous injection every month erenumab-aooe (AIMOVIG AUTOINJECTOR) 140 mg/mL auto-injector Inject 1 mL subcutaneously once every month. Do not shake. 1 Each 07/10/2023 09/19/2023 Discontinued Start: 03-23-2023 End: 09-03-2024 inject 1 mL by subcutaneous injection every month erenumab-aooe (AIMOVIG AUTOINJECTOR) 70 mg/mL auto-injector Inject 1 mL subcutaneously once every month. Do not shake. 1 Each 07/10/2023 07/10/2023 Discontinued Comment on above: Inject 1 mL subcutan eously once every month. Do not shake. 2 ml famotidine 10 mg/ml injection (1 source) Histamine-2 Receptor Antagonist Start: 5 End: 5 20 mg, INTRAVENOUS, NEEDED, 1 dose, Starting on Meg 08/01/24 at 1056, Until Meg 08/01/24 at 1146, Heartburn, REFRIGERATE fluconazole 150 mg oral tablet (6 sources) Azole Antifungal Start: End: take 1 tablet by mouth once, then take 1 tablet by mouth once fluconazole (Diflucan) 150 MG tablet Indications: Yeast infection Take 1 tablet (150 mg) by mouth 1 (one) time for 1 dose This is a 1 time dose, take single tablet by mouth. 1 tablet 1 07/01/2024 07/01/2024 Start: 05-21-2024 End: 05-21-2024 take 1 tablet by mouth once fluconazole (DIFLUCAN) 150 mg tablet Indications: Antibiotic-induced yeast infection Take 1 tablet (150 mg total) by mouth once for 1 dose. 1 tablet 05/21/2024 05/21/2024 Active Start: 04-02-2024 End: 04-02-2024 take 1 tablet [...] release oral tablet (8 sources) Start: End: take 1 tablet by [...] oral, Once in imaging, contrast, Starting on 04/08/24 at 1335, For 1 dose, VESICANT (RED) 1 ml ketorolac tromethamine 30 mg/ml injection (20 sources) Nonsteroidal Anti-inflammatory Drug, Cyclooxygenase Inhibitor Start: 08-02-2024 End: 08-02-2024 30 mg, INTRAVENOUS, ONCE, 1 dose, On Mon08/02/24 at 1030, Ketorolac (Toradol) is indicated for the short-term (up to 5 days) management of moderately severe acute pain. Continuation of ketorolac (Toradol) beyond 5 days increases the risk of developing serious adverse events. Please verify the duration of therapy for ketorolac (Toradol). Start: 08-01-2024 End: 08-01-2024 30 mg, INTRAVENOUS, ONCE, 1 dose, On Meg 08/01/24 at 1130, Ketorolac (Toradol) is indicated for the short-term (up to 5 days) management of moderately severe acute pain. Continuation of ketorolac (Toradol) beyond 5 days increases the risk of developing serious adverse events. Please verify the duration of therapy for ketorolac (Toradol) Start: 06-22-2024 take 1 tablet by sami th every eight hours as needed for pain ketorolac (Toradol) 10 MG tablet Take 10 mg by mouth every 8 (eight) hours if needed for mild pain 06/22/2024 Active Start: 06-04-2024 take 1 tablet by sami th every six hours as needed keTORolac (TORADOL) 10 mg tablet Take 1 tablet by mouth every 6 hours as needed (severe migraine). 20 tablet 5 06/04/2024 Active Start: 05-02-2024 End: 05-02-2024 30 mg, INTRAVENOUS, ONCE, 1 dose, On Meg 05/02/24 at 1200, Ketorolac (Toradol) is indicated for the short-term (up to 5 days) management of moderately severe acute pain. Continuation of ketorolac (Toradol) beyond 5 days increases the risk of developing serious adverse events. Please verify the duration of therapy for ketorolac (Toradol). Start: 05-02-2024 End: 05-02-2024 keTORolac 30 mg injection (T oradol) Start: 04-09-2024 End: 04-09-2024 15 mg, intramuscular, [...] needed 05/14/2023 02/28/2024 Discontinued Start: 05-08-2022 End: 05-31-2024 take 1 tablet by mouth every six hours as needed keTORolac (TORADOL) 10 mg tablet Take 1 tablet by mouth every 6 hours as needed (severe migraine). 20 tablet 5 11/10/2023 05/31/2024 Discontinued Start: 12-24-2020 End: 12-24-2020 ketorolac (TORADOL) injectio [...] to administering in feeding tube Start: 06-13-2022 End: 09-03-2024 lithium carbonate 300 mg tab let 06/13/2022 Active Start: 01-17-2022 take 2 tablets by [facility] once daily lithium carbonate 300 mg tablet Take 2 tablets (600 mg total) by mouth nightly. 01/17/2022 Active Start: 01-17-2022 End: 02-28-2024 lithium carbonate 300 mg tab let 2 tablets (600 mg total). 01/17/2022 Active End: 01-09-2024 lithium ER (Eskalith) 450 MG 12 hr tablet [place] 01/09/2024 Discontinued 1 ml LORazepam 2 mg/ml [...] at Discharge) lumateperone (CAPLYTA) 10.5 mg capsule (20 sources) End: 05-03-2024 take 1 capsule by mouth once daily lumateperone (CAPLYTA) 10.5 mg capsule Take 10.5 mg by mouth once daily. 05/03/2024 Discontinued take 1 capsule by mouth once ann ly lumateperone (CAPLYTA) 10.5 mg capsule Take 10.5 mg by mouth once daily. Active take 1 capsule by mouth once ann ly lumateperone (CAPLYTA) 10.5 mg capsule Take 10.5 mg by mouth once daily. 0 Active Comment on above: Take 10.5 mg by mout h once daily. 100 ml magnesium sulfate 10 mg/ml injection (4 sources) Start: 08-02-2024 End: 08-02-2024 1 g, INTRAVENOUS, at 100-200 mL/hr, Administer over 0.5-1 Hours, ONCE, 1 dose, On Mon08/02/24 at 1030, Magnesium sulfate iv bolus will be infused [...] BMT and Hematology/Oncology, Eclampsia or Preeclampsia Start: 01-22-2024 End: 01-22-2024 1 g, INTRAVENOUS, [...] mg in NaCl 0.9% 100 mL (ROBAXIN) (4 sources) Start: 08-02-2024 End: 08-02-2024 1,000 mg, INTRAVENOUS, Administer over 30 Minutes, ONCE, 1 dose, On Mon08/02/24 at 1030, Administer IV while in recumbent position. Maintain position for at least 10-15 minutes following infusion. Start: 01-22-2024 End: 01-22-2024 1,000 mg, INTRAVENOUS, Admin ister over 30 [...] End: 04-08-2024 4 mg, intravenous, Once, On 04/08/24 at 1335, For 1 dose, Look-alike/sound-a like medication - verify indication for use. naloxone [...] completed) Start: 01-24-2024 End: 04-23-2024 nystatin (Mycostatin) [id number] UNIT/GM powder Indications: Rash , Yeast dermatitis Apply topically 2 (two) times a day 60 g 01/24/2024 02/28/2024 Discontinued 2 ml ondansetron 2 mg/ml injection (20 sources) Serotonin-3 Receptor Antagonist Start: 08-01-2024 End: 08-02-2024 8 mg, INTRAVENOUS, EVERY 1 HOUR NEEDED, 2 doses, Starting on Mon08/02/24 at 1017, Until Mon08/02/24 at 1453, Nausea/Vomiting - First Line - Parenteral Start: 05-04-2024 End: 06-03-2024 take 1 tablet by mouth every six hours as needed for nausea and vomiting ondansetron ODT (ZOFRAN ODT) 4 mg disintegrating tablet Dissolve 1 tablet (4 mg total) on tongue every 6 (six) hours as needed for nausea or vomiting for up to 30 days. 10 tablet 05/04/2024 06/03/2024 Active Start: 05-02-2024 End: 05-02-2024 8 mg, INTRAVENOUS, EVERY 1 H OUR NEEDED, 2 doses, Starting on Meg 05/02/24 at 1032, Until Meg 05/02/24 at 1436, Nausea/Vomiting - First Line - Parenteral Start: 04-08-2024 End: 04-08-2024 4 mg, intravenous, Once, On 04/08/24 at 1335, For 1 dose, Administer over [...] 12-24-2020 ondansetron (ZOFRAN) injecti on 4 mg piperacillin-tazobactam (ZOSYN) 4.5 g in sodium chloride 0.9 % 50 mL IVPB-MBP (1 source) Start: 04-08-2024 End: 04-08-2024 4.5 g, intravenous, at 100 mL/hr, Administer over 0.5 Hours, Once, On Mon04/08/24 at 1615, For 1 dose, ADD-VANTAGE/MBP- Discard 24 hours after activating; dissolve drug prior to administration polyethylene glycol 3350 [id number] mg powder for oral solution (1 source) [...] 1000 ml sodium chloride 9 mg/ml injection (13 sources) Start: 08-02-2024 End: 08-02-2024 500 mL, INTRAVENOUS, at 999 mL/hr, Administer over 0.5 Hours, ONCE, 1 dose, On Mon08/02/24 at 1030 Start: 05-02-2024 End: 05-02-2024 500-999 mL/hr, INTRAVENOUS, NEEDED, 1 dose, Starting on Meg 05/02/24 at 1156, Until Meg 05/02/24 at 1220, Hypotension (titrate to maintain SBP greater than 100), Administer per hypersensitivity/anaphylaxis grading in nursing communication. Start: 04-08-2024 End: [...] 10-19-2021 End: 10-20-2021 IntraVENous, at 125 mL/hr, C ONTINUOUS, Starting on Mon10/19/21 at 1245 Start: 10-19-2021 [...] at bedtime 05/10/2023 02/28/2024 Discontinued Start: 06-13-2022 End: 05-03-2024 traZODone (DESYREL) 100 mg t ablet 06/13/2022 05/03/2024 Discontinued End: 03-25-2024 take 2 tablets by mouth [...] Date Documented Da te Episodic/Chronic Anxiety disorders (20 sources) Anxiety disorder, unspecified; Translations: [Generalized anxiety disorder] Onset: 12-29-2021 01-24-2023 Chronic Asthma (20 sources) Unspecified asthma, uncomplicated; Translations: [Mild persistent asthma] Onset: 12-29-2021 01-24-2023 Chronic Complications of surgical procedures or medical care (2 sources) Menopausal flushing; Translations: [Symptomatic postprocedural ovarian failure] 09-03-2024 Chronic E Codes: Fall (1 source) Unspecified fall, [...] [NONRHEUMATIC MITRAL VALVE PROLAPSE] Onset: 06-16-2022 Chronic Inflammation; infection of eye (except that caused by tuberculosis or sexually transmitteddisease) (4 sources) Infection of bilateral eyes; 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, bilateral] Onset: 07-24-2024 07-24-2024 Chronic Inflammatory diseases of female pelvic organs (4 sources) Female pelvic peritoneal adhesions; Translations: [Female pelvic peritoneal adhesions (postinfective)] 03-06-2024 Episodic Menopausal disorders (3 sources) Menopausal symptom; Translations: [Menopausal and female climacteric states] 04-15-2024 Chronic Menstrual disorders (1 source) Dysmenorrhea, unspecified; Translations: [DYSMENORRHEA UNSPECIFIED] Onset: 10-08-2021 Chronic Miscellaneous mental health disorders (20 sources) Dissociative convulsions; Translations: [Conversion disorder with seizures or convulsions] Onset: 10-20-2021 Chronic Mood disorders (20 sources) Bipolar disorder, unspecified; Translations: [Major depressive disorder, single episode, unspecified] Onset: 10-21-2021 01-24-2023 Chronic Mycoses (5 sources) Mycosis; Translations: [Candidiasis, unspecified] 04-02-2024 Episodic Other aftercare (1 source) Other custodial (current) drug therapy; Translations: [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] Onset: 06-22-2022 Episodic Other [...] VAGINAL BLEED UNS] Onset: 10-08-2021 Chronic Other female genital disorders (2 sources) Pain in female genitalia on intercourse; Translations: [Unspecified dyspareunia] 07-01-2024 Chronic Other gastrointestinal disorders (1 source) Other constipation; Translations: [OTHER CONSTIPATION] Onset: 06-22-2022 Episodic Other injuries and conditions due to external causes (4 sources) Unspecified injury of head, initial encounter; Translations: [UNSPECIFIED INJURY HEAD INITIAL ENC] Onset: 05-23-2022 Episodic Other injuries and conditions due to external causes (1 source) Allergic reaction; Translations: [Allergy, unspecified, sequela] 08-26-2024 Episodic Other liver diseases (1 source) Fatty (change of) liver, not elsewhere classified; Translations: [FATTY CHANGE LIVER NEC] Onset: 01-19-2022 Chronic Other lower respiratory disease (1 source) Nodule [...] in adult] Onset: 03-21-2023 01-01-2024 Chronic Other nutritional; endocrine; and metabolic disorders (2 sources) Weight decreased; Translations: [Abnormal weight loss] 06-06-2024 Episodic Other skin disorders (2 sources) Excessive sweating; Translations: [Generalized hyperhidrosis] 04-16-2024 Episodic Other skin disorders (5 sources) Ingrowing great toenail; Translations: [Ingrowing nail] Onset: 07-24-2024 07-24-2024 Episodic Other upper respiratory disease (2 sources) Seasonal allergic rhinitis; Translations: [Other seasonal allergic rhinitis] 06-06-2024 Chronic Other upper respiratory infections (1 source) Acute pansinusitis; Translations: [Acute pansinusitis, unspecified] 05-21-2024 Episodic Ovarian cyst (11 sources) Complex ovarian cyst; Translations: [Other ovarian cyst, unspecified side] 02-28-2024 Episodic Residual codes; unclassified (1 source) Acquired absence of other specified parts of digestive tract; Translations: [ACQ ABSENCE OTH PART DIGESTV TRACT] Onset: 06-22-2022 Episodic Residual codes; unclassified (1 source) Preoperative state 03-20-2024 Episodic Residual codes; unclassified (2 sources) Family history of hereditary disease; Translations: [Family history of other specified conditions] 06-10-2024 Episodic Residual codes; unclassified (2 sources) Reduced libido; Translations: [Decreased libido] 07-01-2024 Episodic Residual codes; unclassified (1 source) Family history of other specified conditions; Translations: [Family history of other specified conditions] Onset: 06-11-2024 Episodic Unclassified (3 sources) LOW BACK PAIN, [...] perineal pain] Onset: 08-17-2021 Resolved: 10-10-2023 Episodic Acute bronchitis (20 sources) Acute infective bronchitis; Translations: [Acute bronchitis due to other specified organisms] Onset: 10-10-2023 Resolved: 01-09-2024 10-10-2023 Episodic Coma; stupor; and brain damage (20 sources) Somnolence; Translations: [Loss of consciousness] Onset: 08-06-2021 Resolved: 07-24-2024 08-06-2021 Episodic Complications of surgical procedures or medical care (20 sources) Postoperative complication; Translations: [Other postprocedural complications and disorders of genitourinary system] Onset: 04-08-2024 04-08-2024 Episodic Contraceptive and procreative management (1 source) [...] disorders; Translations: [DEPRESSION UNSPECIFIED] Onset: 03-03-2022 Resolved: 07-24-2024 03-03-2022 Nausea and vomiting (20 sources) Nausea; Translations: [Nausea with vomiting, unspecified] Onset: 08-14-2021 Episodic Other aftercare (20 sources) Long-term current use of drug therapy; Translations: [Other custodial (current) drug therapy] Onset: 01-01-2024 01-01-2024 Episodic Other gastrointestinal disorders (1 source) Diarrhea, unspecified; Translations: [DIARRHEA UNSPECIFIED] Onset: 10-08-2021 Episodic Other liver diseases (1 source) Hepatomegaly, not elsewhere classified; Translations: [HEPATOMEGALY NEC] Onset: 01-19-2022 Episodic Other lower respiratory disease (20 sources) Dyspnea on exertion; Translations: [Shortness of breath] Onset: 01-23-2024 01-23-2024 Episodic Other lower respiratory disease (20 sources) [...] Translations: [Insomnia, unspecified] Onset: 01-24-2023 01-24-2023 Episodic Residual codes; unclassified (20 sources) Edema, generalized; Translations: [Generalized edema] Onset: 01-23-2024 01-23-2024 Episodic Residual codes; unclassified (20 sources) History of bilateral salpingo-oophorectom y; 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, bilateral] Onset: 03-28-2024 04-01-2024 Episodic Skin and subcutaneous tissue infections (20 sources) Cellulitis of abdominal wall ; Translations: [Cellulitis of abdominal wall] Onset: 04-08-2024 04-08-2024 Episodic Spondylosis; intervertebral disc disorders; other back [...] Test Name Value Interpretation Reference Range [facility] APRIL [facility]ICHOL[facility] ([id number]) 1995 F Date Time Provider Department 08/05/24 RHIANNON ACUNA [facility] During your visit today, we recorded the following information about you: Rhiannon Acuna 08/06/2024 9:58 AM Signed Ambulatory Pharmacy Prior Authorization Note Provider Intervention Required?: No - Pharmacy completed on your behalf. Was the PA documented within the ePA workqueue?: No Rx Plan: Medicaid [facility] ([place]) Drug: Zavzpret 10MG/ACT solution Cover My Meds Chong: [id number] Determination: Approved Prior Authorization/Case #: [id number] Prior Authorization Expiration: 01/31/2025 Time to PA Submission in CMM: 15 [...] refills. Prescriptions will now be processed through [facility] for determination of next steps. For questions relating to this submission, please contact [facility] at [phone] Allergies As of Date: 08/05/2024 Noted Allergy Reaction DIHYDROERGOTAMINE 07/27/2022 5 - [...] - Hives PROCHLORPERAZINE 12/29/2023 5 - Intolerance VYEPTI ([facility] 05/02/2024 2 - Rash 9 - Itching Comments: Patient described extreme itching located on her chest and arms (bilaterally). Date Reviewed: 08/05/2024 Reviewed by: Curtis Lepe PA-C - Fully Assessed Reason for Visit: Insurance Authorization [[id number]] Cmt: Zavzpret 10MG/ACT solution Zavzpret 10MG/ACT solution [Other] Prescriptions as of 08/06/2024 - zavegepant (ZAVZPRET) 10 mg/actuation nasal spray Use one nasal spray at migraine onset. May use once per 24 hours. - magnesium oxide 400 mg magnesium cap Take 1 capsule by mouth daily at bedtime. - promethazine (PHENERGAN) 25 mg tablet Take 1 tablet by mouth every 4 hours as needed. FOR NAUSEA - keTORolac (TORADOL) 10 mg tablet Take 1 tablet by mouth every 6 hours as needed (severe migraine). - chlorzoxazone (PARAFON FORTE DSC) 500 mg tablet Take 1 tablet by mouth two times a day as needed for muscle spasm (migraine). - ZOLMitriptan (ZOMIG) 5 mg nasal spray Use 1 Helix in the nose as needed at onset of migraine headache. If symptoms persist or return, may repeat dose in other nostril after 2 hours. Maximum of 2 sprays per 24 hours - scopolamine (TRANSDERM-SCOP) patch 1.5 mg/72 hr (delivers 1 mg over 3 days) Apply 1 Patch as directed every 72 hours. APPLY 1 DISC BEHIND THE EAR AT LEAST 4 HOURS PRIOR TO EXPOSURE AND EVERY 3 DAYS NEEDED. - albuterol sulfate 90 mcg/actuation breath activated powder inhaler Inhale 2 Puffs as instructed every 6 hours as needed for wheezing/shortness of breath. 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] 10/20/2021 Intractable chronic migraine without aura and w*06/24/2022 Chronic migraine without aura, with intractable* 024 Intractable chronic migraine without aura and w*09/19/2023 Encounter Status:Closed [facility] ---- APRIL NICHOLSON ([id number]) 1995 F Date Time Provider Department 08/02/24 11:00 AM [facility] During your visit today, we recorded the following information about you: Curtis Lepe PA-C 08/05/2024 12:10 AM Signed [facility] A Note Subjective: April Nicholson is a 28 year old year old female presenting for day 1 of infusions. April reports a two-week history of worsening headaches. She received Toradol yesterday with vyepti treatment and notes some improvement today. She has been receiving Vyepti infusions, which she feels wear off consistently at the two-month genaro. she did well with most recent Vyepti infusion with premedicated with Benadryl and Valium to target her anxiety. She did not have any reaction like similar infusions Which was thought to correlate with anxiety opposed to allergic reaction. She does not endorse any issues with her current medications. She has been using Zomig nasal spray, which provides partial relief. She previously tried Nurtec without significant benefit and has stopped using Ubrelvy due to lack of efficacy. Therapy Plan: phenergan IV Fluids toradol magnesium robaxin New health conditions since orders were placed: No Cardiovascular risk factors: None Triptan dose in the last 24 hours: No Last muscle relaxer dose: No Last NSAID dose: No Response to infusions: Patient tolerating infusion without side effects. and Headache improving. Current Preventative: Vyepti 100 mg every 3 months, Lamictal 200mg daily Current Abortive: zomig nasal spray, phenergan Labs: Latest Ref Rng AND Units 04/01/2022 [...] Lymph 1.00 - 4.00 k/uL 0.84 Abs [place] <0.87 k/uL 0.06 Abs E[place] <0.46 k/uL [...] Reglan [Metoclopram* Intolerance Vortioxetine Hives Prochlorperazine Intolerance Vyepti [Eptinezumab* Rash, Itching Patient described extreme itching located on her chest and arms (bilaterally). Current Medications: zavegepant (ZAVZPRET) 10 mg/actuation nasal sprayUse one nasal spray at migraine onset. May use once per 24 hours.Disp: 6 eachRfl: 11 magnesium oxide 400 mg magnesium capTake 1 capsule by mouth daily at bedtime.Disp: 90 capsuleRfl: 3 promethazine (PHENERGAN) 25 mg tabletTake 1 tablet by mouth every 4 hours as needed. FOR NAUSEADisp: 90 tabletRfl: 5 keTORolac (TORADOL) 10 mg tabletTake 1 tablet by mouth every 6 hours as needed (severe migraine).Disp: 20 tabletRfl: 5 chlorzoxazone (PARAFON FORTE DSC) 500 mg tabletTake 1 tablet by mouth two times a day as needed for muscle spasm (migraine).Disp: 20 tabletRfl: 5 ZOLMitriptan (ZOMIG) 5 mg nasal sprayUse 1 Helix in the nose as needed at onset of migraine headache. If symptoms persist or return, may repeat dose in other nostril after 2 hours. Maximum of 2 sprays per 24 hoursDisp: 12 eachRfl: 5 scopolamine (TRANSDERM-SCOP) patch 1.5 mg/72 hr (delivers 1 mg over 3 days)Apply 1 Patch as directed every 72 hours. APPLY 1 DISC BEHIND THE EAR AT LEAST 4 HOURS PRIOR TO EXPOSURE AND EVERY 3 DAYS NEEDED.Disp: 4 PatchRfl: 2 albuterol sulfate 90 mcg/actuation breath activated powder inhalerInhale 2 Puffs as instructed every 6 hours as needed for wheezing/shortness of breath.Disp: Rfl: lithium carbonate 300 mg tabletDisp: Rfl: lamoTRIgine (LAMICTAL) 150 mg tabletDisp: Rfl: diazePAM (VALIUM) 10 mg tabletDisp: Rfl: Review of Systems: Review of system: Patient reports no change from the prior visit. Objective: VS: see infusion note for vital signs General: well appearing, in no acute distress, alert Neurological: Pain Behaviors: no pain be (more content not included)... Normal [facility] 07-05-2024 [facility] Telephone (NIQ) ---- APRIL NICHOLSON ([id number]) 1995 F Date Time Provider Department 07/05/24 CURTIS LEPE During your visit today, we recorded the following information about you: Mendoza Dooley 07/05/2024 3:09 PM Signed Left detailed voicemail message to schedule infusions Allergies As of Date: 07/05/2024 Noted Allergy Reaction DIHYDROERGOTAMINE 07/27/2022 5 - [...] - Intolerance VORTIOXETINE 08/06/2021 4 - Hives [facility]PTI ([facility] 05/02/2024 2 - Rash 9 - Itching Comments: Patient described extreme itching located on her chest and arms (bilaterally). PROCHLORPERAZINE 12/29/2023 5 - Intolerance Date Reviewed: 07/04/2024 Reviewed by: Curtis Lepe PA-C - Fully Assessed Reason for Visit: Infusion [464] Cmt: Headache infusion scheduling Prescriptions as of 07/05/2024 - magnesium oxide 400 mg magnesium cap Take 1 capsule by mouth daily at bedtime. - promethazine (PHENERGAN) 25 mg tablet Take 1 tablet by mouth every 4 hours as needed. FOR NAUSEA - keTORolac (TORADOL) 10 mg tablet Take 1 tablet by mouth every 6 hours as needed (severe migraine). - chlorzoxazone (PARAFON FORTE DSC) 500 mg tablet Take 1 tablet by mouth two times a day as needed for muscle spasm (migraine). - ZOLMitriptan (ZOMIG) 5 mg nasal spray Use 1 Helix in the nose as needed at onset of migraine headache. If symptoms persist or return, may repeat dose in other nostril after 2 hours. Maximum of 2 sprays per 24 hours - scopolamine (TRANSDERM-SCOP) patch 1.5 mg/72 hr (delivers 1 mg over 3 days) Apply 1 Patch as directed every 72 hours. APPLY 1 DISC BEHIND THE EAR AT LEAST 4 HOURS PRIOR TO EXPOSURE AND EVERY 3 DAYS NEEDED. - ubrogepant (UBRELVY) 100 mg tablet Take 1 tablet at onset of migraine/headache. May repeat dose in 2 hours if needed. Do NOT take more than 2 tablets in 24 hours. Max dose is 200 mg in 24 hours. - albuterol sulfate 90 mcg/actuation breath activated powder inhaler Inhale 2 Puffs as instructed every 6 hours as needed for wheezing/shortness of breath. - lithium carbonate 300 mg tablet - lamoTRIgine (LAMICTAL) 150 mg tablet - diazePAM (VALIUM) 10 mg tablet Facility-Administer ed Medications as of 07/05/2024 - onabotulinum toxin type A 200 Units injection (BOTOX) Problem List As Of Date 07/05/2024 Noted Resolved Seizure-like activity (HCC) [R56.9] 04/01/2022 Psychogenic nonepileptic seizure [F44.5] 10/20/2021 Intractable chronic migraine without aura and w*06/24/2022 Chronic migraine without aura, with intractable* 024 Intractable chronic migraine without aura and w*09/19/2023 Encounter Status:Closed by MENDOZA DOOLEY on 07/05/24 Normal [facility] Urinalysis macro (dipstick) panel (U)on 07-01-2024 Bilirubin, UA Negative Negative - 4(70) +++ mg/dL [facility] Blood, UA Negative Negative - 50 Isiah/mcL [facility] Clarity, UA Clear [facility] Color, UA Yellow [facility] Glucose, UA Negative Negative - 1999(110) ++++ mg/dL [facility] Interpretation and review of laboratory results Abnormal [facility] Ketones, UA Negative Negative - 160(16) ++++ mg/dL [facility] Leukocytes, UA Negative Negative - 500+++ Blanca/mcL [facility] Nitrite, UA Negative Negative - Positive [facility] pH, UA 6 5 - 9 [facility] Protein, UA Negative Negative - 1999(20) ++++ mg/dL [facility] Spec Grav, UA 1.025 1 - 1.03 [facility] Urobilinogen, UA 0.2 0.2 - 12 mg/dL [facility] Reporton 06-11-2024 Report Normal [facility] Comment on above: Performed By: #### D SHANON #### Performed at [facility], [address] [place] [address] 05-07-2024 [facility] Telephone ([facility]) ---- APRIL NICHOLSON ([id number]) 1995 F Date Time Provider Department 05/07/24 ANGELY COTTON [facility] During your visit today, we recorded the following information about you: Angely Cotton RN 05/07/2024 10:[address] Lepe , Pt's ubrelvy needs a PA . I am unable to complete a PA since your office note is unfinished. Please let me know when you have completed it and I will put in the PA tanner. Thanks! Angely Cotton RN [facility] P: , F: Angely Cotton RN 05/08/2024 3:21 PM Signed [facility] received prescription(s) for Ubrelvy 100MG tablets . Benefits investigation was conducted, indicating that a prior authorization is required. All pertinent clinical information was submitted to insurance. Epic- Referral # [id number] Angely Cotton RN [facility] P: , F: Angely Cotton RN 05/13/2024 9:21 AM Signed Ambulatory Pharmacy Prior Authorization Note Provider Intervention Required?: No - Pharmacy completed on your behalf. Was the PA documented within the ePA workqueue?: No Rx Plan: Medicaid [facility] ([facility]) Drug: Ubrelvy 100MG tablets Cover My Meds Chong: [id number] Determination: Approved Prior Authorization/Case #: [id number] Prior Authorization Expiration: 05/07/24 Time to PA Submission in CMM: 15 [...] refills. Prescriptions will now be processed through [facility] for determination of next steps. For questions relating to this submission, please contact [facility] at [phone] Allergies As of Date: 05/07/2024 Noted Allergy Reaction DIHYDROERGOTAMINE 07/27/2022 5 - [...] - Intolerance VORTIOXETINE 08/06/2021 4 - Hives VYEPTI ([facility] 05/02/2024 2 - Rash 9 - Itching Comments: Patient described extreme itching located on her chest and arms (bilaterally). PROCHLORPERAZINE 12/29/2023 5 - Intolerance Date Reviewed: 05/02/2024 Reviewed by: Claudia Maynard, RN - Fully Assessed Reason for Visit: Insurance Authorization [[id number]] ubrelvy [Other] Prescriptions as of 05/13/2024 - scopolamine (TRANSDERM-SCOP) patch 1.5 mg/72 hr (delivers 1 mg over 3 days) Apply 1 Patch as directed every 72 hours. APPLY 1 DISC BEHIND THE EAR AT LEAST 4 HOURS PRIOR TO EXPOSURE AND EVERY 3 DAYS NEEDED. - ubrogepant (UBRELVY) 100 mg tablet Take 1 tablet at onset of migraine/headache. May repeat dose in 2 hours if needed. Do NOT take more than 2 tablets in 24 hours. Max dose is 200 mg in 24 hours. - ZOLMitriptan (ZOMIG) 5 mg nasal spray Use 1 Helix in the nose as needed at onset [...] capsule by mouth daily at bedtime. - lithium carbonate 300 mg tablet - lamoTRIgine (LAMICTAL) 150 mg tablet - diazePAM (VALIUM) 10 mg tablet Facility-Administer ed Medications as of 05/13/2024 - onabotulinum toxin type A 200 Units injection (BOTOX) Problem List As Of Date 05/07/2024 Noted Resolved Seizure-like activity (HCC) [R56.9] 04/01/2022 Psychogenic nonepileptic seizure [F44.5] 10/20/2021 Intractable chronic migraine without aura and w*06/24/2022 Chronic migraine without aura, with intractable* 024 Intractable chronic migraine without aura and w*09/19/2023 Encounter Status:Closed by MU (more content not included)... Normal [facility] IGP,APTIMA HPV,AGE GDLNon AGE GDLN ACOG TESTING Note . [facility] Comment on above: TESTS RESULT FLAG UN ITS REF RANGE LAB Clinician Provided Cytology Information Source.............Vagina No. of containers..01 ThinPrep Vial Age Algo ACOG Becca... FLAG LEGEND: L-Low Normal,H-High Normal,LL-Alert Low,HH-Alert High <-Panic Low,>-Panic High,A-Abnormal,AA-Critical Abnormal Performed at: 01 =G [facility] [place] [address] Pearl Franco MD, IGP, RFX APTIMA HPV ASCU Note . [facility] Comment on above: TESTS RESULT FLAG UN ITS REF RANGE LAB DIAGNOSIS: 02 NEGATIVE FOR INTRAEPITHELIAL LESION OR MALIGNANCY. Specimen adequacy: 02 Satisfactory for evaluation. No endocervical component is identified. Performed by: Daksha Nichole, Equipment Maintenance Engineer . 02 Note: Note 02 The Pap [...] Low,>-Panic High,A-Abnormal,AA-Critical Abnormal Performed at: [address] [facility] [address] [id number] Pearl Franco MD, Performed at: =G - [facility] [address] [id number] Car Record Clerk: Pearl Franco MD, Phone: [phone] Performed at: - [facility] [id number] Car Record Clerk: Pearl Franco MD, Phone: [phone] [facility] CBC auto differentialon 03-23 Band form neutrophils/100 WBC (Bld) 3 % [facility] Eosinophils (Bld) [#/Vol] 0.3 10*3/uL [facility] Eosinophils/100 WBC (Bld) 3 % [facility] Erythrocyte distribution width (RBC) [Ratio] 13.7 % 11.5 - 15.0 % [facility] Hematocrit (Bld) [Volume fraction] 32.8 % Low 35 - 47 % [facility] Hemoglobin (Bld) [Mass/Vol] 11.1 g/dL Low 11.7 - 15.5 g/dL [facility] Interpretation and review of laboratory results Abnormal [facility] Lymphocytes (Bld) [#/Vol] 1.2 10*3/uL [facility] Lymphocytes/100 WBC (Bld) 12 % [facility] MCH (RBC) [Entitic mass] 29 pg 27 - 34 pg [facility] MCHC (RBC) [Mass/Vol] 33.8 g/dL 32 - 36 g/dL [facility] MCV (RBC) [Entitic vol] 86 fL 80 - 100 fL [facility] Monocytes (Bld) [#/Vol] 0.6 10*3/uL [facility] Monocytes/100 WBC (Bld) 6 % [facility] Neutrophils (Bld) [#/Vol] 7.6 10*3/uL High [facility] Platelet mean volume (Bld) [Entitic vol] 7.7 fL 7 - 12 fL [facility] Platelets (Bld) [#/Vol] 225 10*3/uL [facility] Polychromasia LM Ql (Bld) 1+ Abnormal NONE^NONE [facility] RBC (Bld) [#/Vol] 3.82 10*6/uL [facility] Segmented neutrophils/100 WBC (Bld) 76 % [facility] WBC corrected for nucl RBC Auto (Bld) [#/Vol] 9.7 [facility] Comprehensive metabolic pane srikanth 04-10-2024 Albumin [Mass/Vol] 3.3 g/dL 3.2 - 5.3 g/dL [facility] ALP [Catalytic activity/Vol] 80 U/L 39 - 130 U/L [facility] ALT No additional P-5'-P [Catalytic activity/Vol] 39 U/L High 0 - 31 U/L [facility] Anion gap [Moles/Vol] 7 mmol/L 5 - 15 mmol/L [facility] AST [Catalytic activity/Vol] 16 U/L 0 - 41 U/L [facility] Bilirubin [Mass/Vol] 0.3 mg/dL 0.3 - 1 .2 mg/dL [facility] Calcium [Mass/Vol] 9.2 mg/dL 8.5 - 10. 5 mg/dL [facility] Chloride [Moles/Vol] 107 mmol/L 98 - 10 9 mmol/L [facility] CO2 [Moles/Vol] 27 mmol/L 22 - 32 mmol/L [facility] Creatinine [Mass/Vol] 0.55 mg/dL 0.40 - 1.00 mg/dL [facility] Comment on above: METHOD TRACEABLE TO IDSC STANDARD eGFR (CKD-EPI)non-race dependent - PINF [facility] Comment on above: Reported eGFR is based on the CKD-EPI 2020 equation that does not use a race coefficient. Glucose [Mass/Vol] 102 mg/dL High 65 - 99 mg/dL [facility] Interpretation and review of laboratory results Abnormal [facility] Potassium [Moles/Vol] 4.1 mmol/L 3.5 - 5.0 mmol/L [facility] Protein [Mass/Vol] 6.4 g/dL 6.0 - 8.0 g/dL [facility] Sodium [Moles/Vol] 141 mmol/L 134 - 146 mmol/L [facility] Urea nitrogen [Mass/Vol] 9 mg/dL 5 - 23 mg/dL [facility] Bacteria identified Cx Nom ( U)on 04-09-2024 Service comment (Unsp spec) [Interp] URINE RECEIVED WITHOUT PRESERVATIVE [facility] Service comment (Unsp spec) [Interp] 10-50,000 ORGANISMS/mL NORMAL UROGENITAL JANIYA [facility] Basic Metabolic Panelon 03-23 Anion gap [Moles/Vol] 12 mmol/L 5 - 15 mmol/L [facility] Calcium [Mass/Vol] 8.9 mg/dL 8.5 - 10. 5 mg/dL [facility] Chloride [Moles/Vol] 103 mmol/L 98 - 10 9 mmol/L [facility] CO2 [Moles/Vol] 24 mmol/L 22 - 32 mmol/L [facility] Creatinine [Mass/Vol] 0.61 mg/dL 0.40 - 1.00 mg/dL [facility] Comment on above: METHOD TRACEABLE TO IDSC STANDARD eGFR (CKD-EPI)non-race dependent - PINF [facility] Comment on above: Reported eGFR is based on the CKD-EPI 2020 equation that does not use a race coefficient. Glucose [Mass/Vol] 106 mg/dL High 65 - 99 mg/dL [facility] Interpretation and review of laboratory results Abnormal [facility] Potassium [Moles/Vol] 4 mmol/L 3.5 - 5.0 mmol/L [facility] Sodium [Moles/Vol] 139 mmol/L 134 - 146 mmol/L [facility] Urea nitrogen [Mass/Vol] 9 mg/dL 5 - 23 mg/dL [facility] CBC auto differentialon 03-23 Band form neutrophils/100 WBC (Bld) 1 % [facility] Eosinophils (Bld) [#/Vol] 0.8 10*3/uL High [facility] Eosinophils/100 WBC (Bld) 6 % [facility] Erythrocyte distribution width (RBC) [Ratio] 13.5 % 11.5 - 15.0 % [facility] Hematocrit (Bld) [Volume fraction] 32.9 % Low 35 - 47 % [facility] Hemoglobin (Bld) [Mass/Vol] 11.2 g/dL Low 11.7 - 15.5 g/dL [facility] Interpretation and review of laboratory results Abnormal [facility] Lymphocytes (Bld) [#/Vol] 1.5 10*3/uL [facility] Lymphocytes/100 WBC (Bld) 11 % [facility] MCH (RBC) [Entitic mass] 28.8 pg 27 - 34 pg [facility] MCHC (RBC) [Mass/Vol] 34 g/dL 32 - 36 g/dL [facility] MCV (RBC) [Entitic vol] 85 fL 80 - 100 fL [facility] Monocytes (Bld) [#/Vol] 0.5 10*3/uL [facility] Monocytes/100 WBC (Bld) 4 % [facility] Neutrophils (Bld) [#/Vol] 10.6 10*3/uL High [facility] Platelet mean volume (Bld) [Entitic vol] 7.5 fL 7 - 12 fL [facility] Platelets (Bld) [#/Vol] 232 10*3/uL [facility] Polychromasia LM Ql (Bld) 1+ Abnormal NONE^NONE [facility] RBC (Bld) [#/Vol] 3.89 10*6/uL [facility] Segmented neutrophils/100 WBC (Bld) 78 % [facility] WBC corrected for nucl RBC Auto (Bld) [#/Vol] 13.4 High [facility] MRSA DNA SAURABH+probe Ql (Unsp spec)on 04-09-2024 [facility] Mrsa Pcr nasal swabon 2024 MRSA DNA SAURABH+probe Ql (Unsp spec) Negative Negative^Neg ative [facility] APTTon 04-08-2024 aPTT Coag (PPP) [Time] 35 s Pr [facility] Basic Metabolic Panelon 03-23 Anion gap [Moles/Vol] 10 mmol/L 5 - 15 mmol/L [facility] Calcium [Mass/Vol] 9.4 mg/dL 8.5 - 10. 5 mg/dL [facility] Chloride [Moles/Vol] 101 mmol/L 98 - 10 9 mmol/L [facility] CO2 [Moles/Vol] 26 mmol/L 22 - 32 mmol/L [facility] Creatinine [Mass/Vol] 0.61 mg/dL 0.40 - 1.00 mg/dL [facility] Comment on above: METHOD TRACEABLE TO [facility] STANDARD eGFR (CKD-EPI)non-race dependent - PINF [facility] Comment on above: Reported eGFR is based on the CKD-EPI 2020 equation that does not use a race coefficient. Glucose [Mass/Vol] 94 mg/dL 65 - 99 mg/dL [facility] Potassium [Moles/Vol] 4 mmol/L 3.5 - 5.0 mmol/L [facility] Sodium [Moles/Vol] 137 mmol/L 134 - 146 mmol/L [facility] Urea nitrogen [Mass/Vol] 10 mg/dL 5 - 23 mg/dL [facility] C-reactive proteinon 025 CRP [Mass/Vol] 15.4 mg/dL High 0.000 - 0.744 mg/dL [facility] CBC auto differentialon 03-23 Basophils (Bld) [#/Vol] 0.1 10*3/uL [facility] Basophils/100 WBC (Bld) 0.5 % [facility] Eosinophils (Bld) [#/Vol] 0.2 10*3/uL [facility] Eosinophils/100 WBC (Bld) 1.1 % [facility] Erythrocyte distribution width (RBC) [Ratio] 13.4 % 11.5 - 15.0 % [facility] Hematocrit (Bld) [Volume fraction] 37.6 % 35 - 47 % [facility] Hemoglobin (Bld) [Mass/Vol] 12.8 g/dL 11.7 - 15.5 g/dL [facility] Interpretation and review of laboratory results Abnormal [facility] Lymphocytes (Bld) [#/Vol] 1.3 10*3/uL [facility] Lymphocytes/100 WBC (Bld) 6.7 % [facility] MCH (RBC) [Entitic mass] 28.7 pg 27 - 34 pg [facility] MCHC (RBC) [Mass/Vol] 34.1 g/dL 32 - 36 g/dL [facility] MCV (RBC) [Entitic vol] 84 fL 80 - 100 fL [facility] Monocytes (Bld) [#/Vol] 0.7 10*3/uL [facility] Monocytes/100 WBC (Bld) 3.5 % [facility] Neutrophils (Bld) [#/Vol] 17.2 10*3/uL High [facility] Neutrophils/100 WBC (Bld) 88.2 % [facility] Platelet mean volume (Bld) [Entitic vol] 8.5 fL 7 - 12 fL [facility] Platelets (Bld) [#/Vol] 290 10*3/uL [facility] RBC (Bld) [#/Vol] 4.46 10*6/uL [facility] WBC corrected for nucl RBC Auto (Bld) [#/Vol] 19.[address] [facility] CRP [Mass/Vol]on 04-08-2024 Interpretation and review of laboratory results Abnormal [facility] CT Abdomen and Pelvis W cont [...] Kyle Solorio MD on 04/08/2024 4:09 PM [facility]ative[facility] Abdomen and Pelvis W cont rast IVOrdered By: Kyle Solorio on 04-08-2024 [employer] Work Phone: ECG 12 leadon 04-08-2024 [facility] - Microbiology an d Antimicrobial susceptibilityon 04-08-2024 FLUAV+FLUBV RNA SAURABH+probe Ql (Unsp spec) Negative Negative^Neg ative [facility] Lactate (P anuradha) [Moles/Vol]o n 04-08-2024 [employer] [facility] Lactate w/ Reflexon 04-08-19 25 Lactate (P anuradha) [Moles/Vol] 0.8 mmol/L 0.4 - 2.0 mmol/L [facility] Comment on above: Result did not trigger repeat Lactate, re-order if needed. Liver panelon 04-08-2024 Albumin [Mass/Vol] 3.9 g/dL 3.2 - 5.3 g/dL [facility] ALP [Catalytic activity/Vol] 88 U/L 39 - 130 U/L [facility] ALT No additional P-5'-P [Catalytic activity/Vol] 59 U/L High 0 - 31 U/L [facility] AST [Catalytic activity/Vol] 26 U/L 0 - 41 U/L [facility] Bilirubin [Mass/Vol] 0.7 mg/dL 0.3 - 1 .2 mg/dL [facility] Bilirubin.direct [Mass/Vol] 0 mg/dL 0.0 - 0.4 mg/dL [facility] Interpretation and review of laboratory results Abnormal [facility] Protein [Mass/Vol] 7.3 g/dL 6.0 - 8.0 g/dL [facility] Magnesiumon 04-08-2024 Magnesium [Mass/Vol] 1.8 mg/dL 1.8 - 2 .6 mg/dL [facility] No Panel Informationon 04-08 [facility] POCT Nursing Urine [place] ic UAon 04-08-2024 Bilirubin Ql (U) Negative Negative^Ne g ative [facility] Glucose [Mass/Vol] Negative Negative^ Neg ative mg/dL [facility] Hemoglobin Ql (U) Trace Abnormal Negative^N eg ative [facility] Interpretation and review of laboratory results Abnormal [facility] Ketones (U) [Mass/Vol] Negative Negat manjinder^Neg ative mg/dL [facility] Leukocyte esterase Test strip Ql (U) Negative Negative^Neg ative [facility] Nitrite Ql (U) Negative Negative^Neg ative [facility] pH (U) 7.5 [pH] 5.0 - 8.5 [facility] Protein Ql (U) Trace Abnormal Negative^Neg ative mg/dL [facility] Specific gravity (U) [Rel density] 1.02 1.003 - 1.035 [facility] Urobilinogen Qn (U) 0.2 NINF [facility] Protime & INRon 04-08-2024 INR Coag (PPP) [Relative time] 1.3 {INR} High [facility] Interpretation and review of laboratory results Abnormal [facility] PT Coag (PPP) [Time] 14.7 s High [facility] SARS/FLU A+B/RSV by NAAT/Mol ecular (M4RT Collection Tube)on 04-08-2024 RSV RNA SAURABH+probe Nom (Unsp spec) Negative Negative^Neg ative [facility] SARS-CoV-2 (COVID-19) RNA SAURABH+probe Ql (Resp) Not detected Not Detected^Not Detected [facility] Comment on above: NOTE The Xpert Xpress [...] operators who are performing tests using either Alma Johns or [employer]mal [employer] systems and is limited to laboratories that [...] specimen repeat. Fact Sheet for Healthcare Providers: https://www.fda.gov/media/857354/download Fact Sheet for Patients: https://www.fda.gov/media/117212/download [facility] Thyroid profile includes TSH FT4on 04-08-2024 Free T4 [Mass/Vol] 0.62 ng/dL 0.61 - 1. 60 ng/dL [facility] TSH Qn 0.54 m[IU]/L [facility] Troponin I, High Sensitivity on 04-08-2024 Troponin I.cardiac High sensitivity method [Mass/Vol] 2 ng/L NINF - 16 ng/L [facility] Troponin I, High Sensitivity 1 Houron 04-08-2024 Troponin I.cardiac High sensitivity method [Mass/Vol] 2 ng/L NINF - 16 ng/L [facility] Troponin I.cardiac High sens itivity method [Mass/Vol]on 04-08-2024 [facility] XR Chest Single viewon 04-08 XR CHEST 1 VW History: Short of breath. One view study. Comparison: 01/23/2024 Impression: * Lungs are now clear. No focal airspace disease or infiltrate is appreciated. No acute process is seen. 8 Finalized by Renetta Andrea MD on 04/08/2024 2:12 PM SECTRAPARenetta Joya MD - 04/08/2024 XR CHEST 1 VW History: Short of breath. One view study. Comparison: 01/23/2024 Impression: * Lungs are now clear. No focal airspace disease or infiltrate is appreciated. No acute process is seen. 8 Finalized by Renetta Andrea MD on 04/08/2024 2:12 PM [facility] Radiology Study observation (narrative) [facility] XR Chest Single viewOrdered By: Renetta Andrea on 04-08-2024 [facility] Work Phone: ECG 12 leadon 03-26-[address] [facility] ABO Rh Repeaton 03-25-[address] [facility] Rh Nom (Bld) Positive [place] [facility] Type and screen(includes ind irect ady)on 03-25-2024 ABO O [place] [facility] Rh Nom (Bld) [facility] Respiratory allergy panelon 03-21-2024 A. alternata IgE Qn (S) kU/L NINF - 0.10 kU/L [facility] Comment on above: Class 0: Normal A. fumigatus IgE Qn (S) kU/L NINF - 0.10 kU/L [facility] Comment on above: Class 0: Normal Indian house dust mite IgE Qn (S) kU/L NINF - 0.10 kU/L [facility] Comment on above: Class 0: Normal [place] grass IgE Qn (S) 0.95 kU/L High NINF - 0.10 kU/L [facility] Comment on above: Class 2:Moderate lev el of Allergy, indicative of stronger ongoing sensitization Boxelder IgE Qn (S) 0.15 kU/L High NINF - 0 .10 kU/L [facility] Comment on above: Class 0/1: Low level of Allergy, ongoing sensitization C. herbarum IgE Qn (S) kU/L NINF - 0.10 kU/L [facility] Comment on above: Class 0: Normal [place] Pollen IgE Qn (S) kU/L NINF - 0.10 kU/L [facility] Comment on above: Class 0: Normal Cat dander IgE Qn (S) 6.53 kU/L High NINF - 0.10 kU/L [facility] Comment on above: Class 3:High level o f Allergy, indicative of high level sensitization Cocklebur IgE Qn (S) 0.14 kU/L High NINF - 0.10 kU/L [facility] Comment on above: Class 0/1: Low level of Allergy, ongoing sensitization Cockroach IgE Qn (S) kU/L NINF - 0.10 kU/L [facility] Comment on above: Class 0: Normal Common Pigweed IgE Qn (S) kU/L NINF - 0.10 kU/L [facility] Comment on above: Class 0: Normal Common Ragweed IgE Qn (S) 0.37 kU/L High NINF - 0.10 kU/L [facility] Comment on above: Class 1:Low level of Allergy, indicative of ongoing sensitization Karnes IgE Qn (S) 0.25 kU/L High NINF - 0.10 kU/L [facility] Comment on above: Class 0/1: Low level of Allergy, ongoing sensitization Dog dander IgE Qn (S) 52.5 kU/L High NINF - 0.10 kU/L [facility] Comment on above: Class 5:Very High le kyara of Allergy,indicative of very high level sensitization house dust mite IgE Qn (S) kU/L NINF - 0.10 kU/L [facility] Comment on above: Class 0: Normal Goosefoot IgE Qn (S) kU/L NINF - 0.10 kU/L [facility] Comment on above: Class 0: Normal IgE Qn 602 [IU]/L High [facility] Interpretation and review of laboratory results Abnormal [facility] Ike grass IgE Qn (S) 0.96 kU/L High NINF - 0.10 kU/L [facility] Comment on above: Class 2:Moderate lev el of Allergy, indicative of stronger ongoing sensitization [place] blue grass IgE Qn (S) 2.55 kU/L High NINF - 0.10 kU/L [facility] Comment on above: Class 2:Moderate lev el of Allergy, indicative of stronger ongoing sensitization Judge Plane IgE Qn (S) kU/L NINF - 0.10 kU/L [facility] Comment on above: Class 0: Normal Marte Elder IgE Qn (S) kU/L NINF - 0.10 kU/L [facility] Comment on above: Class 0: Normal Mountain Juniper IgE Qn (S) kU/L NINF - 0.10 kU/L [facility] Comment on above: Class 0: Normal Mouse urine proteins IgE Qn (S) 0.34 kU/L High NINF - 0.10 kU/L [facility] Comment on above: Class 0/1: Low level of Allergy, ongoing sensitization Mugwort IgE Qn (S) kU/L NINF - 0. 10 kU/L [facility] Comment on above: Class 0: Normal Nettle IgE Qn (S) kU/L NINF - 0.1 0 kU/L [facility] Comment on above: Class 0: Normal P. notatum IgE Qn (S) kU/L NINF - 0.10 kU/L [facility] Comment on above: Class 0: Normal Pecan or [place] Tree IgE Qn (S) 0.17 kU/L High NINF - 0.10 kU/L [facility] Comment on above: Class 0/1: Low level of Allergy, ongoing sensitization Saltwort IgE Qn (S) 0.38 kU/L High NINF - 0 .10 kU/L [facility] Comment on above: Class 1:Low level of Allergy, indicative of ongoing sensitization Sheep Lapwai IgE Qn (S) kU/L NINF - 0.10 kU/L [facility] Comment on above: Class 0: Normal Silver Birch IgE Qn (S) kU/L NINF - 0.10 kU/L [facility] Comment on above: Class 0: Normal Johan IgE Qn (S) 1.92 kU/L High NINF - 0. 10 kU/L [facility] Comment on above: Class 2:Moderate lev el of Allergy, indicative of stronger ongoing sensitization [place] IgE Qn (S) kU/L NINF - 0.10 kU/L [facility] Comment on above: Class 0: Normal White Elm IgE Qn (S) kU/L NINF - 0.10 kU/L [facility] Comment on above: Class 0: Normal White mulberry IgE Qn (S) kU/L NINF - 0.10 kU/L [facility] Comment on above: Class 0: Normal [place] IgE Qn (S) kU/L NINF - 0.10 kU/L [facility] Comment on above: Class 0: Normal [facility] Pulmonary function test Spir ometry (Flow Volume Loop)Ordered By: Dinorah Cummins on 03-20-2024 [facility] CA 125on 03-18-2024 Cancer Ag 125 Qn 7 [arb'U]/mL 0 - 35 U/mL [facility] Comment on above: The method used for this test is Olga Bascom DXI chemiluminescent immunoassay. Values obtained by different assay methods cannot be used interchangeably. CBC auto differentialon 02-21 Basophils (Bld) [#/Vol] 0 10*3/uL [facility] Basophils/100 WBC (Bld) 0.6 % [facility] Eosinophils (Bld) [#/Vol] 0.5 10*3/uL High [facility] Eosinophils/100 WBC (Bld) 8.4 % [facility] Erythrocyte distribution width (RBC) [Ratio] 13.6 % 11.5 - 15.0 % [facility] Hematocrit (Bld) [Volume fraction] 40.6 % 35 - 47 % [facility] Hemoglobin (Bld) [Mass/Vol] 13.7 g/dL 11.7 - 15.5 g/dL [facility] Interpretation and review of laboratory results Abnormal [facility] Lymphocytes (Bld) [#/Vol] 1.3 10*3/uL [facility] Lymphocytes/100 WBC (Bld) 23.5 % [facility] MCH (RBC) [Entitic mass] 29.2 pg 27 - 34 pg [facility] MCHC (RBC) [Mass/Vol] 33.7 g/dL 32 - 36 g/dL [facility] MCV (RBC) [Entitic vol] 87 fL 80 - 100 fL [facility] Monocytes (Bld) [#/Vol] 0.3 10*3/uL [facility] Monocytes/100 WBC (Bld) 5.3 % [facility] Neutrophils (Bld) [#/Vol] 3.5 10*3/uL [facility] Neutrophils/100 WBC (Bld) 62.2 % [facility] Platelet mean volume (Bld) [Entitic vol] 8.9 fL 7 - 12 fL [facility] Platelets (Bld) [#/Vol] 233 10*3/uL [facility] RBC (Bld) [#/Vol] 4.67 10*6/uL [facility] WBC corrected for nucl RBC Auto (Bld) [#/Vol] 5.7 [facility] CEAon 03-18-2024 Carcinoembryonic Ag [Mass/Vol] 0.9 ng/mL 0.0 - 3.0 ng/mL [facility] Comment on above: 0.0-3.0 ng/mL FOR NON SMOKERS 0.0-5.0 ng/mL FOR SMOKERS The method used for this test is Olga Kivra DXI chemiluminescent immunoassay. Values obtained by different assay methods cannot be used interchangeably. Cancer Ag 125 Qnon 5 [facility] Cancer Ag 19-9 Qnon 03-18-19 25 [facility] Cancer antigen 19-9on 2024 Cancer Ag 19-9 Qn U/mL 0.0 - 35.0 U/mL [facility] Comment on above: The method used for this test is Olga Bascom DXI chemiluminescent immunoassay. Values obtained by different assay methods cannot be used interchangeably. Carcinoembryonic Ag [Mass/Vo l]on 03-18-2024 [facility] Comprehensive metabolic pane srikanth 03-18-2024 Albumin [Mass/Vol] 4.3 g/dL 3.2 - 5.3 g/dL [facility] ALP [Catalytic activity/Vol] 51 U/L 39 - 130 U/L [facility] ALT No additional P-5'-P [Catalytic activity/Vol] 21 U/L 0 - 31 U/L [facility] Anion gap [Moles/Vol] 10 mmol/L 5 - 15 mmol/L [facility] AST [Catalytic activity/Vol] 15 U/L 0 - 41 U/L [facility] Bilirubin [Mass/Vol] 0.5 mg/dL 0.3 - 1 .2 mg/dL [facility] Calcium [Mass/Vol] 9.2 mg/dL 8.5 - 10. 5 mg/dL [facility] Chloride [Moles/Vol] 104 mmol/L 98 - 10 9 mmol/L [facility] CO2 [Moles/Vol] 27 mmol/L 22 - 32 mmol/L [facility] Creatinine [Mass/Vol] 0.62 mg/dL 0.40 - 1.00 mg/dL [facility] Comment on above: METHOD TRACEABLE TO IDSC STANDARD eGFR (CKD-EPI)non-race dependent - PINF [facility] Comment on above: Reported eGFR is based on the CKD-EPI 2020 equation that does not use a race coefficient. Glucose [Mass/Vol] 88 mg/dL 65 - 99 mg/dL [facility] Interpretation and review of laboratory results Abnormal [facility] Potassium [Moles/Vol] 3.4 mmol/L Low 3.5 - 5.0 mmol/L [facility] Protein [Mass/Vol] 6.6 g/dL 6.0 - 8.0 g/dL [facility] Sodium [Moles/Vol] 141 mmol/L 134 - 146 mmol/L [facility] Urea nitrogen [Mass/Vol] 12 mg/dL 5 - 23 mg/dL [facility] CNPNon 02-22-2024 CNPN Telephone ([facility]) ---- APRIL NICHOLSON ([id number]) 1995 F Date Time Provider Department 02/22/24 SAGAR BARTH [facility] During your visit today, we recorded the following information about you: Jannette Mcleod RN 02/22/2024 12:04 PM Signed Prior Authorization submitted via [employer] Safety on 02/22/2024: Insurance: [place] Medicaid Medication: Zolmitriptan Chong Code: [id number] Awaiting Response Jannette Mcleod RN 03/14/2024 2:23 [...] Date Reviewed: 01/22/2024 Reviewed by: Raiza Morales APRN.BUTTON TUFTING MACHINE OPERATOR - Fully Assessed Reason for Visit: Insurance Authorization [[id number]] Cmt: Zolmitriptan Prescriptions as of 03/14/2024 - ZOLMitriptan (ZOMIG) 5 mg nasal spray Use 1 Helix in the nose as needed at onset [...] Status:Closed by JANNETTE MCLEOD on 02/22/24 Normal [facility] Pathology Request for Lab Co rpon 02-16-2024 Pathology Request for Lab Lilly Normal [facility] Comment on above: Order Comment: PATHO LOGY GI SPECIMEN Result Comment: See report. Scanned copy available in EMR. PERFORMED BY: [facility] [address] [place] [address] PATHOLOGIST VP [employer]ENT[employer] PALOMO JOYCE M.D. Performed By: #### P ATH TO [facility] #### [address] Veronica 01-29-2024 CNPN Telephone ([facility]) ---- APRIL NICHOLSON ([id number]) 1995 F Date Time Provider Department 01/29/24 SAGAR BARTH [facility] During your visit today, we recorded the following information about you: Kelsey Patel 01/29/2024 10:53 AM Signed Name of Caller: nicky Relationship to patient: pharmacy Last visit in this department: 09/19/2023 Reason for Call: Other : need to verify quantity on zolmitriptan. Callback number: [phone] Amy Shrestha MA 01/29/2024 12:06 PM Signed Per last Rx on 11/10/2023: Disp Refills Start End ZOLMitriptan (ZOMIG) 5 mg nasal spray 10 Each 5 11/10/2023 -- Sig: Use 1 Helix in the nose as needed at onset of migraine headache. If symptoms persist or return, may repeat dose in other nostril after 2 hours. Maximum of 2 sprays per 24 hours I called the pharmacy and hey need to know if Provider would like to dispense #6 or #12 cartridges. They do not come in 10. Please advise. Thank you Sagar Barth APRN.FADY 01/30/2024 2:59 PM Addendum Dispense 12 pls. I rewrote the rx. Koli Green, ASSISTANT PLANT MANAGERSagar Edmond APRN.CNP 01/30/2024 2:59 PM Signed The following approved medication requests have been transmitted electronically. Requested Prescriptions Signed Prescriptions Disp Refills ZOLMitriptan (ZOMIG) 5 mg nasal spray 12 Each 5 Sig: Use 1 Helix in the nose as needed at onset [...] an (ZOMIG) 5 mg nasal sprayUse 1 Helix in the nose as needed at onset of migraine headache. If symptoms persist or return, may repeat dose in other nostril after 2 hours. Maximum of 2 sprays per 24 hoursDisp: 12 EachRfl: 5 Prescriptions as of 02/01/2024 - ZOLMitriptan (ZOMIG) 5 mg nasal spray Use 1 Helix in the nose as needed at onset [...] 5 01/30/2024 Route: NASAL Sig: Use 1 Helix in the nose as needed at onset of migraine headache. If symptoms persist or return, may repeat dose in other nostril after 2 hours. Maximum of 2 sprays per 24 hours Medications Discontinued During This Encounter Prescriptions - ZOLMitriptan (ZOMIG) 5 mg nasal spray (Discontinued) Use 1 Helix in the nose as needed at onset of migraine headache. If symptoms persist or return, may repeat dose in other nostril after 2 hours. Maximum of 2 sprays per 24 hours Encounter Status:Closed by KELSEY PATEL on 01/30/24 Normal [facility] CNOVon 01-22-2024 CNOV Office Visit ([facility]) ---- APRIL NICHOLSON ([id number]) 1995 F Date Time Provider Department 01/22/24 2:30 PM RAIZA MORALES [facility] During your visit today, we recorded the following information about you: Raiza Morales APRN.BUTTON TUFTING MACHINE OPERATOR 01/22/2024 1:57 PM Signed [facility] Infusion [...] Lymph 1.00 - 4.00 k/uL 0.84 Abs [place] <0.87 k/uL 0.06 Abs Eosin <0.46 k/uL [...] ZOLMitriptan (ZOMIG) 5 mg nasal sprayUse 1 Helix in the nose as needed at onset [...] and clear, coherent, and relevant. 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 Normal [facility] CNOVon 09-19-2023 CNOV Office Visit ([facility]) ---- APRIL NICHOLSON ([id number]) 1995 F Date Time Provider Department 09/19/23 2:30 PM SAGAR BARTH [facility] During your visit today, we recorded the following information about you: Temperature Pulse Blood pressure Weight 99.1 degrees 80/minute 115/81 118.8 kg Height 1.584 m Sagar Barth APRN.BUTTON TUFTING MACHINE OPERATOR 09/19/2023 3:12 PM Signed Outpatient [facility] [...] XL, Qudexy) Anti-Depressant and Antipsychotic Amitriptyline (Elavil) [place] (Eskalith, Lithobid) Nortriptyline (Pamelor, Aventyl) Anti-Migraine Dihydroergotamine [...] ZOLMitriptan (ZOMIG) 5 mg nasal sprayUse 1 Helix in the nose as needed at onset [...] these with the patient: yes Sagar Barth APRN.[facility] HEADACHE SCORES: 03/22/2023 07/10/2023 09/19/2023 Headache Questions ER visits since last office visit: 6 8 6 Hospital stays since last office visit 2 1 Limited ADL (more content not included)... Normal [facility] CNOVon 08-18-2023 [facility] Office [facility] ([facility]) ---- APRIL NICHOLSON ([id number]) 1995 F Date Time Provider Department 08/18/23 9:30 AM CURTIS LEPE [facility] During your visit today, we recorded [...] 1 month Curtis Lepe PA-C Headache Section [facility] August 18, 2023 Curtis Lepe PA-C 08/18/2023 2:39 PM Signed You received a greater occipital nerve block (GONB) today You may feel sore tomorrow at the site of the injection. You may use heat or ice for discomfort and gentle stretching. This should resolve in 24-36 hours. Greater Occipital Nerve Block (GONB) Article in [employer] Journal By: Molina Barraza MD Many patients with chronic headache report that their (more content not included)... Normal [facility] BLOOD GASES BTYon 06-20-2022 02 MODE ROOM AIR Normal [facility] Comment on above: Performed By: #### B MP #### [facility] [address] [address] [address] Ibis Jimenez ALLENS TEST Positive Normal [facility] Comment on above: Performed By: #### B MP #### [facility] [address] [address] [address] Ibis Jimenez Base excess Calc (Bld) [Moles/Vol] -1.6000 mmol/L Normal -2.0-2.0 [facility] Comment on above: Performed By: #### B MP #### [facility] [address] [address] [address] Ibis Jimenez BIPAP PRESSURE Normal [facility] Comment on above: Performed By: #### B MP #### [facility] [address] [address] [address] Ibis Jimenez CPAP [facility] Comment on above: Performed By: #### B MP #### [facility] [address] [address] [address] Ibis Jimenez FIO2 [facility] Comment on above: Performed By: #### B MP #### [facility] [address] [address] [address] Ibis Jimenez HCO3 (Bld) [Moles/Vol] 23.8 mmol/L Normal 22.0-26.0 [facility] Comment on above: Performed By: #### B MP #### [facility] [address] [place] [address] Dr. Ibis Jimenez LPM [facility] Comment on above: Performed By: #### B MP #### [facility] [address] [address] [address] Ibis Jimenez MINUTE VOLUME Normal [facility] Comment on above: Performed By: #### B MP #### [facility] [address] [address] [address] Ibis Jimenez Oxygen (Bld) [Partial pressure] 75.5 mm[Hg] Critically low 80.0-100.0 [facility] Comment on above: Performed By: #### B MP #### [facility] [address] [place] [address] Dr. Ibis Jimenez Oxygen saturation in Blood 95.8 % Normal 95.0-100.0 [facility] Comment on above: Performed By: #### B MP #### [facility] [address] [address] [address] bIis Jimenez PCO2 41.8 mmHg Normal 35.0-45.0 [facility] Comment on above: Performed By: #### B MP #### [facility] [address] [place] [address] Dr. Ibis Jimenez PEEP [facility] Comment on above: Performed By: #### B MP #### [facility] [address] [place] [address] Dr. Ibis Jimenez pH (Bld) 7.363 [pH] Normal 7.350-7.450 [facility] Comment on above: Performed By: #### B MP #### [facility] [address] [place] [address] Dr. Ibis Jimenez PIP [facility] Comment on above: Performed By: #### B MP #### [facility] [address] [place] [address] Dr. Ibis Jimenez PS [facility] Comment on above: Performed By: #### B MP #### [facility] [address] [place] [address] Dr. Ibis Jimenez PUNCTURE SITE LR [facility] Comment on above: Performed By: #### B MP #### [facility] [address] [place] [address] Dr. Ibis Jimenez RATE [facility] Comment on above: Performed By: #### B MP #### [facility] [address] [place] [address] Dr. Ibis Jimenez VENT MODE [facility] Comment on above: Performed By: #### B MP #### [facility] [address] [place] [address] Dr. Ibis Jimenez [facility] Comment on above: Performed By: #### B MP #### [facility] [address] [place] [address] Dr. Ibis Jimenez CBC AUTO DIFFon 06-20-2022 BASO # 0.0 103/ul Normal 0.0-0.1 [facility] Comment on above: Performed By: #### A CET, SALYC #### [facility] [address] [place] [address] Dr. Ibis Jimenez Basophils/100 WBC (Bld) 0.5 % Normal 0.2-2.0 [facility] Comment on above: Performed By: #### A CET, SALYC #### [facility] [address] [place] [address] Dr. Ibis Jimenez EO # 0.3 103/ul Normal 0.0-0.7 [facility] Comment on above: Performed By: #### A CET, SALYC #### [facility] [address] [place] [address] Dr. Ibis Jimenez Eosinophils/100 WBC (Bld) 4.2 % Normal 0.9-7.0 [facility] Comment on above: Performed By: #### A CET, SALYC #### [facility] [address] [place] [address] Dr. Ibis Jimenez Erythrocyte distribution width (RBC) [Ratio] 13.2 % Normal 11.0-15.0 [facility] Comment on above: Performed By: #### A CET, SALYC #### [facility] [address] [place] [address] Dr. Ibis Jimenez Hematocrit (Bld) [Volume fraction] 36.5 % Normal 36.0-48.0 [facility] Comment on above: Performed By: #### A CET, SALYC #### [facility] [address] [place] [address] Dr. Ibis Jimenez Hemoglobin (Bld) [Mass/Vol] 11.7 g/dL Critically low 12.0-16.0 [facility] Comment on above: Performed By: #### A CET, SALYC #### [facility] [address] [place] [address] Dr. Ibis Jimenez IG # 0.05 10e3/ul Critically high 0.00-0.03 [facility] Comment on above: Performed By: #### A CET, SALYC #### [facility] [address] [place] [address] Dr. Ibis Jimenez IG % 0.8 % Critically high 0.0-0.5 The [facility] Comment on above: Performed By: #### A CET, SALYC #### [facility] [address] [place] [address] Dr. Ibis Jimenez LYMPH # 1.7 103/ul Normal 1.2-3.8 [facility] Comment on above: Performed By: #### A CET, SALYC #### [facility] [address] [place] [address] Dr. Ibis Jimenez Lymphocytes/100 WBC (Bld) 26.9 % Normal 20.5-60.0 [facility] Comment on above: Performed By: #### A CET, SALYC #### [facility] [address] [place] [address] Dr. Ibis Jimenez MANUAL DIFF REQ NO Normal [facility] Comment on above: Performed By: #### A CET, SALYC #### [facility] [address] [place] [address] Dr. Ibis Jimenez MCH (RBC) [Entitic mass] 28.7 pg Normal 26.7-34.0 [facility] Comment on above: Performed By: #### A CET, SALYC #### [facility] [address] [place] [address] Dr. Ibis Jimenez MCHC (RBC) [Mass/Vol] 32.1 g/dL Normal 29.9-35.2 [facility] Comment on above: Performed By: #### A CET, SALYC #### [facility] [address] [place] [address] Dr. Ibis Jimenez MCV (RBC) [Entitic vol] 89.7 fL Normal 81.0-99.0 [facility] Comment on above: Performed By: #### A CET, SALYC #### [facility] [address] [place] [address] Dr. Ibis Jimenez MONO # 0.6 103/ul Normal 0.3-0.8 [facility] Comment on above: Performed By: #### A CET, SALYC #### [facility] [address] [place] [address] Dr. Ibis Jimenez Monocytes/100 WBC (Bld) 8.9 % Normal 1.7-12.0 [facility] Comment on above: Performed By: #### A CET, SALYC #### [facility] [address] [place] [address] Dr. Ibis Jimenez NEUT # 3.8 103/ul Normal 1.4-6.5 [facility] Comment on above: Performed By: #### A CET, SALYC #### [facility] [address] [place] [address] Dr. Ibis Jimenez Neutrophils/100 WBC (Bld) 58.7 % Normal 43.0-75.0 [facility] Comment on above: Performed By: #### A CET, SALYC #### [facility] [address] [place] [address] Dr. Ibis Jimenez Platelet mean volume (Bld) [Entitic vol] 9.3 fL Critically low 9.5-13.5 [facility] Comment on above: Performed By: #### A CET, SALYC #### [facility] [address] [place] [address] Dr. Ibis Jimenez PLT 188 103/ul Normal 150-450 [facility] Comment on above: Performed By: #### A CET, SALYC #### [facility] [address] [place] [address] Dr. Ibis Jimenez RBC 4.07 106/ul Critically low 4.20-5.40 [facility] Comment on above: Performed By: #### A CET, SALYC #### [facility] [address] [place] [address] Dr. Ibis Jimenez WBC 6.4 103/ul Normal 4.0-11.0 [facility] Comment on above: Performed By: #### A CET, SALYC #### [facility] [address] [place] [address] Dr. Ibis Jimenez DRUG SCREEN RAPID (URINE)on 06-20-2022 AMP Negative Normal NEGATIVE [facility] Comment on above: Performed By: #### B MP #### [facility] [address] [place] [address] Dr. Ibis Jimenez BAR Positive Abnormal NEGATIVE [facility] Comment on above: Performed By: #### B MP #### [facility] [address] [place] [address] Dr. Ibis Jimenez BUP Negative Normal NEGATIVE [facility] Comment on above: Performed By: #### B MP #### [facility] [address] [place] [address] Dr. Ibis Jimenez BZO Positive Abnormal NEGATIVE [facility] Comment on above: Performed By: #### B MP #### [facility] [address] [place] [address] Dr. Ibis Jimenez SEMAJ Negative Normal NEGATIVE [facility] Comment on above: Performed By: #### B MP #### [facility] [address] [place] [address] Dr. Ibis Jimenez CUT-OFFS SEE BELOW Normal [facility] Comment on above: Result Comment: AMP (Amphetamine): 500ng/mL, BAR (Barbituates): 200 ng/mL, BZO (Benzodiazepines): 150 ng/mL, BUP (Buprenorphine): 10 ng/mL, SEMAJ (Cocaine): 150 ng/mL, mAMP (Methamphetamine): 500 ng/mL, MTD (Methadone): 200 ng/mL, OPI (Opiates): 100 ng/mL, OXY (Oxycodone): 100 ng/mL, PCP (Phencyclidine): 25 ng/mL, PPX (Propoxyphene): 300 ng/mL, THC (Cannabinoids): 50 ng/mL, TCA (Trycyclic Antidepressants): 300 ng/mL Performed By: #### B MP #### [facility] [address] [place] [address] Dr. Ibis Jimenez DRUG CUT HEADER DRUG CLASS TEST SYSTEM CUT-OFF CONCENTRATIONS ARE FOLLOWS: Normal [facility] Comment on above: Performed By: #### B MP #### [facility] [address] [place] [address] Dr. Ibis Jimenez mAMP Negative Normal NEGATIVE [facility] Comment on above: Performed By: #### B MP #### [facility] [address] [place] [address] Dr. Ibis Jimenez MTD Negative Normal NEGATIVE [facility] Comment on above: Performed By: #### B MP #### [facility] [address] [place] [address] Dr. Ibis Jimenez OPI Negative Normal NEGATIVE [facility] Comment on above: Performed By: #### B MP #### [facility] [address] [place] [address] Dr. Ibis Jimenez OXY Negative Normal NEGATIVE [facility] Comment on above: Performed By: #### B MP #### [facility] [address] [address] [address] Ibis Jimenez PCP Negative Normal NEGATIVE [facility] Comment on above: Performed By: #### B MP #### [facility] [address] [place] [address] Dr. Ibis Jimenez PPX Negative Normal NEGATIVE [facility] Comment on above: Performed By: #### B MP #### [facility] [address] [place] [address] Dr. Ibis Jimenez TCA Positive Abnormal NEGATIVE [facility] Comment on above: Performed By: #### B MP #### [facility] [address] [place] [address] Dr. Ibis Jimenez THC Positive Abnormal NEGATIVE [facility] Comment on above: Performed By: #### B MP #### [facility] [address] [place] [address] Dr. Ibis Jimenez ER URINE PROFILEon 3 Bilirubin Ql (U) Negative Normal NEGATIVE [facility] Comment on above: Performed By: #### A CET, SALYC #### [facility] [address] [place] [address] Dr. Ibis Jimenez Clarity (U) CLEAR Normal CLEAR [facility] Comment on above: Performed By: #### A CET, SALYC #### [facility] [address] [place] [address] Dr. Ibis Jimenez Color (U) YELLOW Normal YELLOW [facility] Comment on above: Performed By: #### A CET, SALYC #### [facility] [address] [place] [address] Dr. Ibis Jimenez ERUAHD A micrscopic examination will be performed if indicated. Normal [facility] Comment on above: Performed By: #### A CET, SALYC #### [facility] [address] [place] [address] Dr. Ibis Jimenez Glucose Ql (U) Negative Normal NEGATIVE [facility] Comment on above: Performed By: #### A CET, SALYC #### [facility] [address] [place] [address] Dr. Ibis Jimenez Hemoglobin Ql (U) Negative Normal NEGATIVE [facility] Comment on above: Performed By: #### A CET, SALYC #### [facility] [address] [place] [address] Dr. Ibis Jimenez Ketones Ql (U) Negative Normal NEGATIVE [facility] Comment on above: Performed By: #### A CET, SALYC #### [facility] [address] [place] [address] Dr. Ibis Jimenez LEUKOCYTES Negative Normal NEGATIVE [facility] Comment on above: Performed By: #### A CET, SALYC #### [facility] [address] [place] [address] Dr. Ibis Jimenez Nitrite Ql (U) Negative Normal NEGATIVE [facility] Comment on above: Performed By: #### A CET, SALYC #### [facility] [address] [place] [address] Dr. Ibis Jimenez pH (U) 5.0 [pH] Normal 5-9 [facility] Comment on above: Performed By: #### A CET, SALYC #### [facility] [address] [place] [address] Dr. Ibis Jimenez SPEC GRAVITY >=1.030 Abnormal 1.005-<=1.02 5 [facility] Comment on above: Performed By: #### A CET, SALYC #### [facility] [address] [place] [address] Dr. Ibis Jimenez UA PROTEIN Negative Normal NEGATIVE/ TRACE [facility] Comment on above: Performed By: #### A CET, SALYC #### [facility] [address] [place] [address] Dr. Ibis Jimenez UR MICRO IND NOT INDICATED Normal [facility] Comment on above: Performed By: #### A CET, SALYC #### [facility] [address] [place] [address] Dr. Ibis Jimenez Urobilinogen Qn (U) 0.2 {Dinorah'U}/dL Normal 0.2 - 1. 0 [facility] Comment on above: Performed By: #### A RYAN, KORI #### [facility] [address] [address] [address] Ibis Jimenez PROF CHEM 8 (BAS METB)on Anion gap [Moles/Vol] 13.1 mmol/L Normal [facility] Comment on above: Performed By: #### M DAVID #### [facility] [address] [address] [address] Ibis Jimenez Calcium [Mass/Vol] 8.3 mg/dL Critically low 8.5-10.1 [facility] Comment on above: Performed By: #### M DAVID #### [facility] [address] [address] [address] Ibis Jimenez Chloride [Moles/Vol] 109 mmol/L Critically high 98-107 [facility] Comment on above: Performed By: #### M DAVID #### [facility] [address] [address] [address] Ibis Jimenez CO2 [Moles/Vol] 25.7 mmol/L Normal 21.0-32.0 [facility] Comment on above: Performed By: #### M DAVID #### [facility] [address] [place] [address] Dr. Ibis Jimenez Creatinine [Mass/Vol] 0.82 mg/dL Normal 0.55-1.02 [facility] Comment on above: Performed By: #### M DAVID #### [facility] [address] [address] [address] Ibis Jimenez EGFR-AF TUVALUAN >60 Normal >=60 [facility] Comment on above: Performed By: #### M DAVID #### [facility] [address] [address] [address] Ibis Jimenez EGFR-NON AF TUVALUAN >60 Normal >=60 [facility] Comment on above: Performed By: #### M DAVID #### [facility] [address] [place] [address] Dr. Ibis Jimenez Glucose [Mass/Vol] 95 mg/dL Normal 74-106 [facility] Comment on above: Performed By: #### M DAVID #### [facility] [address] [address] [address] Ibis Jimenez Potassium [Moles/Vol] 3.8 mmol/L Normal 3.5-5.1 [facility] Comment on above: Performed By: #### M DAVID #### [facility] [address] [address] [address] Ibis Jimenez Sodium [Moles/Vol] 144 mmol/L Normal 136-145 [facility] Comment on above: Performed By: #### M DAVID #### [facility] [address] [address] [address] Ibis Jimenez Urea nitrogen [Mass/Vol] 16.0 mg/dL Normal 7.0-18.0 [facility] Comment on above: Performed By: #### M DAVID #### [facility] [address] [address] [address] Ibis Jimenez Urea nitrogen/Creatinine [Mass ratio] 19.5 mg/mg Normal [facility] Comment on above: Performed By: #### M DAVID #### [facility] [address] [address] [address] Ibis Jimenez ACETAMINOPHENon 06-19-2022 Acetaminophen [Mass/Vol] ug/mL Critically low 10.0-30.0 [facility] Comment on above: Performed By: #### A CETKORI #### [facility] [address] [address] [address] Ibis Jimenez DRUG SCREEN RAPID (URINE)on 06-19-2022 AMP Negative Normal NEGATIVE [facility] Comment on above: Performed By: #### M DAVID #### [facility] [address] [address] [address] Ibis Jimenez BAR Positive Abnormal NEGATIVE [facility] Comment on above: Performed By: #### M DAVID #### [facility] [address] [address] [address] Ibis Jimenez BUP Negative Normal NEGATIVE [facility] Comment on above: Performed By: #### M DAVID #### [facility] [address] [place] [address] Dr. Ibis Jimenez BZO Positive Abnormal NEGATIVE [facility] Comment on above: Performed By: #### M DAVID #### [facility] [address] [address] [address] Ibis Jimenez SEMAJ Negative Normal NEGATIVE [facility] Comment on above: Performed By: #### M DAVID #### [facility] [address] [address] [address] Ibis Jimenez CUT-OFFS SEE BELOW Normal [facility] Comment on above: Result Comment: AMP (Amphetamine): 500ng/mL, BAR (Barbituates): 200 ng/mL, BZO (Benzodiazepines): 150 ng/mL, BUP (Buprenorphine): 10 ng/mL, SEMAJ (Cocaine): 150 ng/mL, mAMP (Methamphetamine): 500 ng/mL, MTD (Methadone): 200 ng/mL, OPI (Opiates): 100 ng/mL, OXY (Oxycodone): 100 ng/mL, PCP (Phencyclidine): 25 ng/mL, PPX (Propoxyphene): 300 ng/mL, THC (Cannabinoids): 50 ng/mL, TCA (Trycyclic Antidepressants): 300 ng/mL Performed By: #### M DAVID #### [facility] [address] [place] [address] Dr. Ibis Jimenez DRUG CUT HEADER DRUG CLASS TEST SYSTEM CUT-OFF CONCENTRATIONS ARE FOLLOWS: Normal [facility] Comment on above: Performed By: #### M DAVID #### [facility] [address] [place] [address] Dr. Ibis Jimneez mAMP Negative Normal NEGATIVE [facility] Comment on above: Performed By: #### M DAVID #### [facility] [address] [address] [address] Ibis Jimenez MTD Negative Normal NEGATIVE [facility] Comment on above: Performed By: #### M DAVID #### [facility] [address] [address] [address] Ibis Jimenez OPI Positive Abnormal NEGATIVE [facility] Comment on above: Performed By: #### M DAVID #### [facility] [address] [place] [address] Dr. Ibis Jimenez OXY Negative Normal NEGATIVE [facility] Comment on above: Performed By: #### M DAVID #### [facility] [address] [address] [address] Ibis Jimenez PCP Negative Normal NEGATIVE [facility] Comment on above: Performed By: #### M DAVID #### [facility] [address] [place] [address] Dr. Ibis Jimenez PPX Negative Normal NEGATIVE [facility] Comment on above: Performed By: #### M DAVID #### [facility] [address] [place] [address] Dr. Ibis Jimenez TCA Negative Normal NEGATIVE [facility] Comment on above: Performed By: #### M DAVID #### [facility] [address] [place] [address] Dr. Ibis Jimenez THC Positive Abnormal NEGATIVE [facility] Comment on above: Performed By: #### M DAVID #### [facility] [address] [place] [address] Dr. Ibis Jimenez ER URINE PROFILEon 3 Bilirubin Ql (U) Negative Normal NEGATIVE [facility] Comment on above: Performed By: #### M DAVID #### [facility] [address] [place] [address] Dr. Ibis Jimenez Clarity (U) CLEAR Normal CLEAR [facility] Comment on above: Performed By: #### M DAVID #### [facility] [address] [place] [address] Dr. Ibis Jimenez Color (U) YELLOW Normal YELLOW [facility] Comment on above: Performed By: #### M DAVID #### [facility] [address] [place] [address] Dr. Ibis RODRIGUEZ A micrscopic examination will be performed if indicated. Normal [facility] Comment on above: Performed By: #### M DAVID #### [facility] [address] [place] [address] Dr. Ibis Jimenez Glucose Ql (U) Negative Normal NEGATIVE [facility] Comment on above: Performed By: #### M DAVID #### [facility] [address] [address] [address] Ibis Jimenez Hemoglobin Ql (U) TRACE-INTACT Abnormal NEGATIVE [facility] Comment on above: Performed By: #### M DAVID #### [facility] [address] [place] [address] Dr. Ibis Jimenez Ketones Ql (U) Negative Normal NEGATIVE [facility] Comment on above: Performed By: #### M DAVID #### [facility] [address] [place] [address] Dr. Ibis Jimenez LEUKOCYTES Negative Normal NEGATIVE [facility] Comment on above: Performed By: #### M DAVID #### [facility] [address] [place] [address] Dr. Ibis Jimenez Nitrite Ql (U) Negative Normal NEGATIVE [facility] Comment on above: Performed By: #### M DAVID #### [facility] [address] [place] [address] Dr. Ibis Jimenez pH (U) 6.0 [pH] Normal 5-9 [facility] Comment on above: Performed By: #### M DAVID #### [facility] [address] [place] [address] Dr. Ibis Jimenez Protein (U) [Mass/Vol] 30 mg/dL Abnormal NEGAT MANJINDER/ TRACE [facility] Comment on above: Performed By: #### M DAVID #### [facility] [address] [place] [address] Dr. Ibis Jimenez SPEC GRAVITY 1.025 Normal 1.005-<=1.02 5 [facility] Comment on above: Performed By: #### M DAVID #### [facility] [address] [place] [address] Dr. Ibis Jimenez UR MICRO IND INDICATED Normal [facility] Comment on above: Performed By: #### M DAVID #### [facility] [address] [place] [address] Dr. Ibis Jimenez Urobilinogen Qn (U) 0.2 {Dinorah'U}/dL Normal 0.2 - 1. 0 [facility] Comment on above: Performed By: #### M DAVID #### [facility] [address] [place] [address] Dr. Ibis Jimenez ETHANOL (BLD ALC)on 06-20-19 ALC NOTE NOTE: 80 mg/dl is the legal limit for a blood alcohol level Normal [facility] Comment on above: Performed By: #### A MM #### [facility] [address] [place] [address] Dr. Ibis Jimenez Ethanol [Mass/Vol] mg/dL Normal [facility] Comment on above: Performed By: #### A MM #### [facility] [address] [place] [address] Dr. Ibis Jimenez POINT OF CARE GLUCOSEon 05-23 Glucose [Mass/Vol] 88 mg/dL Normal 74-106 [facility] Comment on above: Performed By: #### C VDTBH #### [facility] [address] [place] [address] Dr. Ibis Jimenez URon 06-19-2022 , QUAL Negative Normal NEGATIVE [facility] Comment on above: Performed By: #### M DAVID #### [facility] [address] [place] [address] Dr. Ibis Jimenez PROF CHEM 8 (BAS METB)on Anion gap [Moles/Vol] 12.6 mmol/L Normal [facility] Comment on above: Performed By: #### A MM #### [facility] [address] [place] [address] Dr. Ibis Jimenez Calcium [Mass/Vol] 8.4 mg/dL Critically low 8.5-10.1 [facility] Comment on above: Performed By: #### A MM #### [facility] [address] [place] [address] Dr. Ibis Jimenez Chloride [Moles/Vol] 107 mmol/L Normal 98-107 [facility] Comment on above: Performed By: #### A MM #### [facility] [address] [place] [address] Dr. Ibis Jimenez CO2 [Moles/Vol] 22.5 mmol/L Normal 21.0-32.[address] [facility] Comment on above: Performed By: #### A MM #### [facility] [address] [place] [address] Dr. Ibis Jimenez Creatinine [Mass/Vol] 0.82 mg/dL Normal 0.55-1.02 [facility] Comment on above: Performed By: #### A MM #### [facility] [address] [address] [address] Ibis Jimenez EGFR-AF TUVALUAN >60 Normal >=[address] [facility] Comment on above: Performed By: #### A MM #### [facility] [address] [place] [address] Dr. Ibis Jimenez EGFR-NON AF TUVALUAN >60 Normal >=60 [facility] Comment on above: Performed By: #### A MM #### [facility] [address] [place] [address] Dr. Ibis Jimenez Glucose [Mass/Vol] 87 mg/dL Normal 74-106 [facility] Comment on above: Performed By: #### A MM #### [facility] [address] [place] [address] Dr. Ibis Jimenez Potassium [Moles/Vol] 4.1 mmol/L Normal 3.5-5.1 [facility] Comment on above: Performed By: #### A MM #### [facility] [address] [place] [address] Dr. Ibis Jimenez Sodium [Moles/Vol] 138 mmol/L Normal 136-145 [facility] Comment on above: Performed By: #### A MM #### [facility] [address] [address] [address] Ibis Jimenez Urea nitrogen [Mass/Vol] 22.0 mg/dL Critically high 7.0-18.0 [facility] Comment on above: Performed By: #### A MM #### [facility] [address] [place] [address] Dr. Ibis Jimenez Urea nitrogen/Creatinine [Mass ratio] 26.8 mg/mg Normal [facility] Comment on above: Performed By: #### A MM #### [facility] [address] [address] [address] Ibis Jimenez SALICYLATEon 06-19-2022 SALICYLATE <2.8 Normal <=19.9 [facility] Comment on above: Performed By: #### A CET, SALYC #### [facility] [address] [address] [address] Ibis Jimenez URINE MICROSCOPIC ONLYon BACTERIA NONE SEEN Normal NONE SEEN [facility] Comment on above: Performed By: #### M DAVID #### [facility] [address] [place] [address] Dr. Ibis Jimenez Bacteria identified Cx Nom (U) NOT INDICATED Normal [facility] Comment on above: Performed By: #### M DAVID #### [facility] [address] [place] [address] Dr. Ibis Jimenez CAST SEEN Abnormal NONE SEEN [facility] Comment on above: Performed By: #### M DAVID #### [facility] [address] [place] [address] Dr. Ibis Jimenez Crystals LM Nom (Urine sed) NONE SEEN Normal NONE SEEN [facility] Comment on above: Performed By: #### M DAVID #### [facility] [address] [place] [address] Dr. Ibis Jimenez Epithelial cells LM Ql (Urine sed) MODERATE Abnormal NONE SEEN /RARE [facility] Comment on above: Performed By: #### M DAVID #### [facility] [address] [address] [address] Ibis Jimenez HYALINE CAST FEW Normal [facility] Comment on above: Performed By: #### M DAVID #### [facility] [address] [place] [address] Dr. Ibis Jimenez MUCOUS NONE SEEN Normal NONE SEEN [facility] Comment on above: Performed By: #### M DAVID #### [facility] [address] [place] [address] Dr. Ibis Jimenez RBC 2-5 Abnormal 0-2 [facility] Comment on above: Performed By: #### M DAVID #### [facility] [address] [address] [address] Ibis Jimenez WBC NONE SEEN Normal NONE SEEN [facility] Comment on above: Performed By: #### M DAVID #### [facility] [address] [address] [address] Ibis Jimenez CBC AUTO DIFFon 06-11-2022 BASO # 0.0 103/ul Normal 0.0-0.1 [facility] Comment on above: Performed By: #### C VDTBH #### [facility] [address] [place] [address] Dr. Ibis Jimenez Basophils/100 WBC (Bld) 0.3 % Normal 0.2-2.0 [facility] Comment on above: Performed By: #### C VDTBH #### [facility] [address] [place] [address] Dr. Ibis Jimenez EO # 0.0 103/ul Normal 0.0-0.7 [facility] Comment on above: Performed By: #### C VDTBH #### [facility] [address] [address] [address] Ibis Jimenez Eosinophils/100 WBC (Bld) 0.1 % Critically low 0.9-7.0 [facility] Comment on above: Performed By: #### C VDTBH #### [facility] [address] [place] [address] Dr. Ibis Jimenez Erythrocyte distribution width (RBC) [Ratio] 13.2 % Normal 11.0-15.0 [facility] Comment on above: Performed By: #### C VDTBH #### [facility] [address] [place] [address] Dr. Ibis Jimenez Hematocrit (Bld) [Volume fraction] 38.5 % Normal 36.0-48.0 [facility] Comment on above: Performed By: #### C VDTBH #### [facility] [address] [place] [address] Dr. Ibis Jimenez Hemoglobin (Bld) [Mass/Vol] 12.4 g/dL Normal 12.0-16.0 [facility] Comment on above: Performed By: #### C VDTBH #### [facility] [address] [place] [address] Dr. Ibis Jimenez IG # 0.20 10e3/ul Critically high 0.00-0.03 [facility] Comment on above: Performed By: #### C VDTBH #### [facility] [address] [place] [address] Dr. Ibis Jimenez IG % 1.8 % Critically high 0.0-0.5 [facility] Comment on above: Performed By: #### C VDTBH #### [facility] [address] [place] [address] Dr. Ibis Jimenez LYMPH # 0.5 103/ul Critically low 1.2-3.8 [facility] Comment on above: Performed By: #### C VDTBH #### [facility] [address] [place] [address] Dr. Ibis Jimenez Lymphocytes/100 WBC (Bld) 4.6 % Critically low 20.5-60.0 [facility] Comment on above: Performed By: #### C VDTBH #### [facility] [address] [place] [address] Dr. Ibis Jimenez MANUAL DIFF REQ NO Normal [facility] Comment on above: Performed By: #### C VDTBH #### [facility] [address] [place] [address] Dr. Ibis Jimenez MCH (RBC) [Entitic mass] 28.2 pg Normal 26.7-34.0 [facility] Comment on above: Performed By: #### C VDTBH #### [facility] [address] [place] [address] Dr. Ibis Jimenez MCHC (RBC) [Mass/Vol] 32.2 g/dL Normal 29.9-35.2 [facility] Comment on above: Performed By: #### C VDTBH #### [facility] [address] [place] [address] Dr. Ibis Jimenez MCV (RBC) [Entitic vol] 87.5 fL Normal 81.0-99.0 [facility] Comment on above: Performed By: #### C VDTBH #### [facility] [address] [place] [address] Dr. Ibis Jimenez MONO # 0.1 103/ul Critically low 0.3-0.8 [facility] Comment on above: Performed By: #### C VDTBH #### [facility] [address] [place] [address] Dr. Ibis Jimenez Monocytes/100 WBC (Bld) 1.3 % Critically low 1.7-12.0 [facility] Comment on above: Performed By: #### C VDTBH #### [facility] [address] [place] [address] Dr. Ibis Jimenez NEUT # 10.1 103/ul Critically high 1.4-6.[address] [facility] Comment on above: Performed By: #### C VDTB #### [facility] [address] [place] [address] Dr. Ibis Jimenez Neutrophils/100 WBC (Bld) 91.9 % Critically high 43.0-75.0 [facility] Comment on above: Performed By: #### C VDTB #### [facility] [address] [place] [address] Dr. Ibis Jimenez Platelet mean volume (Bld) [Entitic vol] 9.1 fL Critically low 9.5-13.5 [facility] Comment on above: Performed By: #### C VDTBH #### [facility] [address] [place] [address] Dr. Ibis Jimenez PLT 240 103/ul Normal 150-450 [facility] Comment on above: Performed By: #### C VDTBH #### [facility] [address] [place] [address] Dr. Ibis Jimenez RBC 4.40 106/ul Normal 4.20-5.40 [facility] Comment on above: Performed By: #### C VDTBH #### [facility] [address] [place] [address] Dr. Ibis Jimenez WBC 11.0 103/ul Normal 4.0-11.0 [facility] Comment on above: Performed By: #### C VDTB #### [facility] [address] [place] [address] Dr. Ibis Jimenez PROF 14(COMP METB)on 023 Albumin [Mass/Vol] 3.3 g/dL Critically low 3.4-5.0 [facility] Comment on above: Performed By: #### B MP #### [facility] [address] [place] [address] Dr. Ibis Jimenez Albumin/Globulin [Mass ratio] 0.9 {ratio} Normal [facility] Comment on above: Performed By: #### B MP #### [facility] [address] [place] [address] Dr. Ibis Jimenez ALP [Catalytic activity/Vol] 63 U/L Normal 46-116 [facility] Comment on above: Performed By: #### B MP #### [facility] [address] [place] [address] Dr. Ibis Jimenez ALT [Catalytic activity/Vol] 32 U/L Normal 14-59 [facility] Comment on above: Performed By: #### B MP #### [facility] [address] [place] [address] Dr. Ibis Jimenez Anion gap [Moles/Vol] 12.9 mmol/L Normal [facility] Comment on above: Performed By: #### B MP #### [facility] [address] [place] [address] Dr. Ibis Jimenez AST [Catalytic activity/Vol] 14 U/L Critically low 15-37 [facility] Comment on above: Performed By: #### B MP #### [facility] [address] [place] [address] Dr. Ibis Jimenez Bilirubin [Mass/Vol] 0.2 mg/dL Normal 0.2-1.0 [facility] Comment on above: Performed By: #### B MP #### [facility] [address] [place] [address] Dr. Ibis Jimenez Calcium [Mass/Vol] 8.5 mg/dL Normal 8.5-10.1 [facility] Comment on above: Performed By: #### B MP #### [facility] [address] [place] [address] Dr. Ibis Jimenez Chloride [Moles/Vol] 106 mmol/L Normal 98-107 [facility] Comment on above: Performed By: #### B MP #### [facility] [address] [place] [address] Dr. Ibis Jimenez CO2 [Moles/Vol] 26.6 mmol/L Normal 21.0-32.0 [facility] Comment on above: Performed By: #### B MP #### [facility] [address] [place] [address] Dr. Ibis Jimenez Creatinine [Mass/Vol] 0.89 mg/dL Normal 0.55-1.02 [facility] Comment on above: Performed By: #### B MP #### [facility] [address] [place] [address] Dr. Ibis Jimenez EGFR-AF TUVALUAN >60 Normal >=60 [facility] Comment on above: Performed By: #### B MP #### [facility] [address] [place] [address] Dr. Ibis Jimenez EGFR-NON AF TUVALUAN >60 Normal >=60 [facility] Comment on above: Performed By: #### B MP #### [facility] [address] [place] [address] Dr. Ibis Jimenez Globulin (S) [Mass/Vol] 3.6 g/dL Normal [facility] Comment on above: Performed By: #### B MP #### [facility] [address] [place] [address] Dr. Ibis Jimenez Glucose [Mass/Vol] 134 mg/dL Critically high 74-106 [facility] Comment on above: Performed By: #### B MP #### [facility] [address] [place] [address] Dr. Ibis Jimenez Potassium [Moles/Vol] 4.5 mmol/L Normal 3.5-5.1 [facility] Comment on above: Performed By: #### B MP #### [facility] [address] [address] [address] Ibis Jimenez Protein [Mass/Vol] 6.9 g/dL Normal 6.4-8.2 [facility] Comment on above: Performed By: #### B MP #### [facility] [address] [place], [place] [address] Dr. Ibis Jimenez Sodium [Moles/Vol] 141 mmol/L Normal 136-145 [facility] Comment on above: Performed By: #### B MP #### [facility] [address] [address] [address] Ibis Jimenez Urea nitrogen [Mass/Vol] 15.0 mg/dL Normal 7.0-18.0 [facility] Comment on above: Performed By: #### B MP #### [facility] [address] [address] [address] Ibis Jimenez Urea nitrogen/Creatinine [Mass ratio] 16.9 mg/mg Normal [facility] Comment on above: Performed By: #### B MP #### [facility] [address] [address] [address] HEAD WO CONon [...] NICHOLAS MARCUS Date: 2022-05-23 19:25 Normal [facility] CT LSPINE WO CONon [address] LSHILBERT WO CON CT CERVICAL SPINE WITHOUT CONTRAST. [...] with vacuum phenomenon. Electronically authenticated by: [facility] Date: 2022-05-23 19:41 Normal [facility] CT HEAD WO CONon 04-01-2022 [...] ROBIN IRBY Date: 2022-03-31 22:40 Normal [facility] Covid-19 PCR (CVDTBH)on 03-23 SARS-CoV-2 (COVID-19) RNA SAURABH+probe Ql (Unsp spec) Not detected Normal NOT DETECTED [facility] Comment on above: Result Comment: When diagnostic [...] for this test is supported by the Certified Ophthalmic Technologist of Health and Human Service's declaration that [...] used). Performed By: #### C VDTBH #### [facility] [address] [place] [address] Dr. Ibis Jimenez ER URINE PROFILEon 3 Bilirubin Ql (U) Negative Normal NEGATIVE [facility] Comment on above: Performed By: #### A CET, SALYC #### [facility] [address] [place] [address] Dr. Ibis Jimenez Clarity (U) CLEAR Normal CLEAR [facility] Comment on above: Performed By: #### A CET, SALYC #### [facility] [address] [place] [address] Dr. Ibis Jimenez Color (U) YELLOW Normal YELLOW [facility] Comment on above: Performed By: #### A CET, SALYC #### [facility] [address] [place] [address] Dr. Ibis Jimenez ERUAHD A micrscopic examination will be performed if indicated. Normal [facility] Comment on above: Performed By: #### A CET, SALYC #### [facility] [address] [place] [address] Dr. Ibis Jimenez Glucose Ql (U) Negative Normal NEGATIVE [facility] Comment on above: Performed By: #### A CET, SALYC #### [facility] [address] [place] [address] Dr. Ibis Jimenez Hemoglobin Ql (U) SMALL Abnormal NEGATIVE [facility] Comment on above: Performed By: #### A CET, SALYC #### [facility] [address] [place] [address] Dr. Ibis Jimenez Ketones Ql (U) Negative Normal NEGATIVE [facility] Comment on above: Performed By: #### A CET, SALYC #### [facility] [address] [place] [address] Dr. Ibis Jimenez LEUKOCYTES Negative Normal NEGATIVE [facility] Comment on above: Performed By: #### A CET, SALYC #### [facility] [address] [place] [address] Dr. Ibis Jimenez Nitrite Ql (U) Negative Normal NEGATIVE [facility] Comment on above: Performed By: #### A CET, SALYC #### [facility] [address] [place] [address] Dr. Ibis Jimenez pH (U) 5.5 [pH] Normal 5-9 [facility] Comment on above: Performed By: #### A CET, SALYC #### [facility] [address] [place] [address] Dr. Ibis Jimenez SPEC GRAVITY >=1.030 Abnormal 1.005-<=1.02 5 [facility] Comment on above: Performed By: #### A CET, SALYC #### [facility] [address] [place] [address] Dr. Ibis Jimenez UA PROTEIN Negative Normal NEGATIVE/ TRACE [facility] Comment on above: Performed By: #### A CET, SALYC #### [facility] [address] [place] [address] Dr. Ibis Jimenez UR MICRO IND INDICATED Normal [facility] Comment on above: Performed By: #### A CET, SALYC #### [facility] [address] [place] [address] Dr. Ibis Jimenez Urobilinogen Qn (U) 0.2 {Dinorah'U}/dL Normal 0.2 - 1. 0 [facility] Comment on above: Performed By: #### A CET, SALYC #### [facility] [address] [place] [address] Dr. Ibis Jimenez INFLUENZA A AND B AGon 04-01 INFLUANEGH SEE BELOW Normal [facility] Comment on above: Result Comment: Nega tive for Flu A protein angiten. Infection due to Flu A cannot be ruled out. Flu A angiten in the sample may be below the detection limit of the test. Performed By: #### A MM #### [facility] [address] [place] [address] Dr. Ibis Jimenez INFLUBNEGH SEE BELOW Normal [facility] Comment on above: Result Comment: Nega tive for Flu B protein antigen. Infection due to Flu B cannot be ruled out. Flu B antigen in the sample may be below the detection limit of the test. Performed By: #### A MM #### [facility] [address] [place] [address] Dr. Ibis Jimenez INFLUENZA A AG Negative Normal NEGATIVE SEE COMMENT [facility] Comment on above: Performed By: #### A MM #### [facility] [address] [place] [address] Dr. Ibis Jimenez INFLUENZA B AG Negative Normal NEGATIVE SEE COMMENT [facility] Comment on above: Performed By: #### A MM #### [facility] [address] [place] [address] Dr. Ibis Jimenez LACTATE/LACTIC ACIDon 2022 Lactate [Moles/Vol] 1.9 mmol/L Normal 0.4-1.9 [facility] Comment on above: Performed By: #### L ACT #### [facility] [address] [place] [address] Dr. Ibis Jimenez URINE MICROSCOPIC ONLYon BACTERIA TRACE Abnormal NONE SEEN [facility] Comment on above: Performed By: #### A CET, SALYC #### [facility] [address] [place] [address] Dr. Ibis Jimenez Bacteria identified Cx Nom (U) NOT INDICATED Normal [facility] Comment on above: Performed By: #### A CET, SALYC #### [facility] [address] [place] [address] Dr. Ibis Jimenez CAST NONE SEEN Normal NONE SEEN [facility] Comment on above: Performed By: #### A CET, SALYC #### [facility] [address] [place] [address] Dr. Ibis Jimenez Crystals LM Nom (Urine sed) NONE SEEN Normal NONE SEEN [facility] Comment on above: Performed By: #### A CET, SALYC #### [facility] [address] [place] [address] Dr. Ibis Jimenez Epithelial cells LM Ql (Urine sed) RARE Normal NONE SEEN /RARE [facility] Comment on above: Performed By: #### A CET, SALYC #### [facility] [address] [place] [address] Dr. Ibis Jimenez MUCOUS TRACE Abnormal NONE SEEN [facility] Comment on above: Performed By: #### A CET, SALYC #### [facility] [address] [place] [address] Dr. Ibis Jimenez RBC 0-2 Normal 0-2 [facility] Comment on above: Performed By: #### A CET, SALYC #### [facility] [address] [place] [address] Dr. Ibis Jimenez WBC NONE SEEN Normal NONE SEEN [facility] Comment on above: Performed By: #### A CET, SALYC #### [facility] [address] [place] [address] Dr. Ibis Jimenez AMMONIAon 03-31-2022 Ammonia (P) [Moles/Vol] 31 umol/L Normal 11-32 [facility] Comment on above: Performed By: #### A MM #### [facility] [address] [place] [address] Dr. Ibis Jimenez CBC AUTO DIFFon 03-31-2022 BASO # 0.0 103/ul Normal 0.0-0.1 [facility] Comment on above: Performed By: #### A MM #### [facility] [address] [place] [address] Dr. Ibis Jimenez Basophils/100 WBC (Bld) 0.4 % Normal 0.2-2.0 [facility] Comment on above: Performed By: #### A MM #### [facility] [address] [place] [address] Dr. Ibis Jimenez EO # 0.5 103/ul Normal 0.0-0.7 [facility] Comment on above: Performed By: #### A MM #### [facility] [address] [place] [address] Dr. Ibis Jimenez Eosinophils/100 WBC (Bld) 6.4 % Normal 0.9-7.0 [facility] Comment on above: Performed By: #### A MM #### [facility] [address] [place] [address] Dr. Ibis Jimenez Erythrocyte distribution width (RBC) [Ratio] 12.8 % Normal 11.0-15.0 [facility] Comment on above: Performed By: #### A MM #### [facility] [address] [place] [address] Dr. Ibis Jimenez Hematocrit (Bld) [Volume fraction] 36.6 % Normal 36.0-48.0 [facility] Comment on above: Performed By: #### A MM #### [facility] [address] [place] [address] Dr. Ibis Jimenez Hemoglobin (Bld) [Mass/Vol] 12.5 g/dL Normal 12.0-16.0 [facility] Comment on above: Performed By: #### A MM #### [facility] [address] [place] [address] Dr. Ibis Jimenez IG # 0.02 10e3/ul Normal 0.00-0.03 [facility] Comment on above: Performed By: #### A MM #### [facility] [address] [place] [address] Dr. Ibis Jimenez IG % 0.3 % Normal 0.0-0.5 [facility] Comment on above: Performed By: #### A MM #### [facility] [address] [place] [address] Dr. Ibis Jimenez LYMPH # 2.0 103/ul Normal 1.2-3.8 [facility] Comment on above: Performed By: #### A MM #### [facility] [address] [place] [address] Dr. Ibis Jimenez Lymphocytes/100 WBC (Bld) 25.0 % Normal 20.5-60.0 [facility] Comment on above: Performed By: #### A MM #### [facility] [address] [place] [address] Dr. Ibis Jimenez MANUAL DIFF REQ NO Normal [facility] Comment on above: Performed By: #### A MM #### [facility] [address] [place] [address] Dr. Ibis Jimenez MCH (RBC) [Entitic mass] 29.5 pg Normal 26.7-34.0 [facility] Comment on above: Performed By: #### A MM #### [facility] [address] [place] [address] Dr. Ibis Jimenez MCHC (RBC) [Mass/Vol] 34.2 g/dL Normal 29.9-35.2 [facility] Comment on above: Performed By: #### A MM #### [facility] [address] [place] [address] Dr. Ibis Jimenez MCV (RBC) [Entitic vol] 86.3 fL Normal 81.0-99.0 [facility] Comment on above: Performed By: #### A MM #### [facility] [address] [place] [address] Dr. Ibis Jimenez MONO # 0.4 103/ul Normal 0.3-0.8 [facility] Comment on above: Performed By: #### A MM #### [facility] [address] [place] [address] Dr. Ibis Jimenez Monocytes/100 WBC (Bld) 5.6 % Normal 1.7-12.0 [facility] Comment on above: Performed By: #### A MM #### [facility] [address] [place] [address] Dr. Ibis Jimenez NEUT # 4.9 103/ul Normal 1.4-6.5 [facility] Comment on above: Performed By: #### A MM #### [facility] [address] [place] [address] Dr. Ibis Jimenez Neutrophils/100 WBC (Bld) 62.3 % Normal 43.0-75.0 [facility] Comment on above: Performed By: #### A MM #### [facility] [address] [place] [address] Dr. Ibis Jimenez Platelet mean volume (Bld) [Entitic vol] 9.5 fL Normal 9.5-13.5 [facility] Comment on above: Performed By: #### A MM #### [facility] [address] [place] [address] Dr. Ibis Jimenez PLT 246 103/ul Normal 150-450 [facility] Comment on above: Performed By: #### A MM #### [facility] [address] [place] [address] Dr. Ibis Jimenez RBC 4.24 106/ul Normal 4.20-5.40 [facility] Comment on above: Performed By: #### A MM #### [facility] [address] [place] [address] Dr. Ibis Jimenez WBC 7.8 103/ul Normal 4.0-11.0 [facility] Comment on above: Performed By: #### A MM #### [facility] [address] [place] [address] Dr. Ibis Jimenez CULTURE BLOODon 03-31-2022 Microscopic examination of blood, culture Culture Observations: NO GROWTH AT 5 DAYS. Normal [facility] Comment on above: Performed By: #### B LDCX2 #### [facility] [address] [place] [address] Dr. Ibis Jimenez Microscopic examination of blood, culture Culture Observations: NO GROWTH AT 5 DAYS. Normal [facility] Comment on above: Performed By: #### B MP #### [facility] [address] [place] [address] Dr. Ibis Jimenez LACTATE/LACTIC ACIDon 2022 Lactate [Moles/Vol] 2.8 mmol/L Critically high 0.4-1.9 [facility] Comment on above: Performed By: #### C VDTB #### [facility] [address] [place] [address] Dr. Ibis Jimenez PROF 14(COMP METB)on 023 Albumin [Mass/Vol] 3.4 g/dL Normal 3.4-5.0 [facility] Comment on above: Performed By: #### B MP #### [facility] [address] [place] [address] Dr. Ibis Jimenez Albumin/Globulin [Mass ratio] 1.2 {ratio} Normal [facility] Comment on above: Performed By: #### B MP #### [facility] [address] [place] [address] Dr. Ibis Jimenez ALP [Catalytic activity/Vol] 85 U/L Normal 46-116 [facility] Comment on above: Performed By: #### B MP #### [facility] [address] [place] [address] Dr. Ibis Jimenez ALT [Catalytic activity/Vol] 18 U/L Normal 14-59 [facility] Comment on above: Performed By: #### B MP #### [facility] [address] [place] [address] Dr. Ibis Jimenez Anion gap [Moles/Vol] 13.2 mmol/L Normal [facility] Comment on above: Performed By: #### B MP #### [facility] [address] [place] [address] Dr. Ibis Jimenez AST [Catalytic activity/Vol] 11 U/L Critically low 15-37 [facility] Comment on above: Performed By: #### B MP #### [facility] [address] [place] [address] Dr. Ibis Jimenez Bilirubin [Mass/Vol] 0.2 mg/dL Normal 0.2-1.0 [facility] Comment on above: Performed By: #### B MP #### [facility] [address] [address] [address] Ibis Jimenez Calcium [Mass/Vol] 8.6 mg/dL Normal 8.5-10.1 [facility] Comment on above: Performed By: #### B MP #### [facility] [address] [address] [address] Ibis Jimenez Chloride [Moles/Vol] 105 mmol/L Normal 98-107 [facility] Comment on above: Performed By: #### B MP #### [facility] [address] [address] [address] Ibis Jimenez CO2 [Moles/Vol] 25.1 mmol/L Normal 21.0-32.0 [facility] Comment on above: Performed By: #### B MP #### [facility] [address] [address] [address] Ibis Jimenez Creatinine [Mass/Vol] 0.80 mg/dL Normal 0.55-1.02 [facility] Comment on above: Performed By: #### B MP #### [facility] [address] [address] [address] Ibis Jimenez EGFR-AF TUVALUAN >60 Normal >=[address] [facility] Comment on above: Performed By: #### B MP #### [facility] [address] [address] [address] Ibis Jimenez EGFR-NON AF TUVALUAN >60 Normal >=60 [facility] Comment on above: Performed By: #### B MP #### [facility] [address] [address] [address] Ibis Jimenez Globulin (S) [Mass/Vol] 2.9 g/dL Normal [facility] Comment on above: Performed By: #### B MP #### [facility] [address] [address] [address] Ibis Jimenez Glucose [Mass/Vol] 99 mg/dL Normal 74-106 [facility] Comment on above: Performed By: #### B MP #### [facility] [address] [address] [address] Ibis Jimenez Potassium [Moles/Vol] 3.3 mmol/L Critically low 3.5-5.1 [facility] Comment on above: Performed By: #### B MP #### [facility] [address] [place] [address] Dr. Ibis Jimenez Protein [Mass/Vol] 6.3 g/dL Critically low 6.4-8.2 [facility] Comment on above: Performed By: #### B MP #### [facility] [address] [place] [address] Dr. Ibis Jimenez Sodium [Moles/Vol] 140 mmol/L Normal 136-145 [facility] Comment on above: Performed By: #### B MP #### [facility] [address] [place] [address] Dr. Ibis Jimenez Urea nitrogen [Mass/Vol] 10.0 mg/dL Normal 7.0-18.0 [facility] Comment on above: Performed By: #### B MP #### [facility] [address] [place] [address] Dr. Ibis Jimenez Urea nitrogen/Creatinine [Mass ratio] 12.5 mg/mg Normal [facility] Comment on above: Performed By: #### B MP #### [facility] [address] [place] [address] Dr. Ibis Jimenez CBC AUTO DIFFon 01-14-2022 BASO # 0.0 103/ul Normal 0.0-0.1 [facility] Comment on above: Performed By: #### A MM #### [facility] [address] [place] [address] Dr. Ibis Jimenez Basophils/100 WBC (Bld) 0.3 % Normal 0.2-2.0 [facility] Comment on above: Performed By: #### A MM #### [facility] [address] [place] [address] Dr. Ibis Jimenez EO # 0.2 103/ul Normal 0.0-0.7 [facility] Comment on above: Performed By: #### A MM #### [facility] [address] [place] [address] Dr. Ibis Jimenez Eosinophils/100 WBC (Bld) 2.7 % Normal 0.9-7.0 [facility] Comment on above: Performed By: #### A MM #### [facility] [address] [place] [address] Dr. Ibis Jimenez Erythrocyte distribution width (RBC) [Ratio] 13.2 % Normal 11.0-15.0 [facility] Comment on above: Performed By: #### A MM #### [facility] [address] [place] [address] Dr. Ibis Jimenez Hematocrit (Bld) [Volume fraction] 35.7 % Critically low 36.0-48.0 [facility] Comment on above: Performed By: #### A MM #### [facility] [address] [place] [address] Dr. Ibis Jimenez Hemoglobin (Bld) [Mass/Vol] 12.2 g/dL Normal 12.0-16.0 [facility] Comment on above: Performed By: #### A MM #### [facility] [address] [place] [address] Dr. Ibis Jimenez IG # 0.04 10e3/ul Critically high 0.00-0.03 [facility] Comment on above: Performed By: #### A MM #### [facility] [address] [place] [address] Dr. Ibis Jimenez IG % 0.5 % Normal 0.0-0.5 [facility] Comment on above: Performed By: #### A MM #### [facility] [address] [place] [address] Dr. Ibis Jimenez LYMPH # 2.1 103/ul Normal 1.2-3.8 [facility] Comment on above: Performed By: #### A MM #### [facility] [address] [place] [address] Dr. Ibis Jimenez Lymphocytes/100 WBC (Bld) 27.3 % Normal 20.5-60.0 [facility] Comment on above: Performed By: #### A MM #### [facility] [address] [place] [address] Dr. Ibis Jimenez MANUAL DIFF REQ NO Normal [facility] Comment on above: Performed By: #### A MM #### [facility] [address] [place] [address] Dr. Ibis Jimenez MCH (RBC) [Entitic mass] 29.0 pg Normal 26.7-34.0 [facility] Comment on above: Performed By: #### A MM #### [facility] [address] [place] [address] Dr. Ibis Jimenez MCHC (RBC) [Mass/Vol] 34.2 g/dL Normal 29.9-35.2 [facility] Comment on above: Performed By: #### A MM #### [facility] [address] [place] [address] Dr. Ibis Jimenez MCV (RBC) [Entitic vol] 84.8 fL Normal 81.0-99.0 [facility] Comment on above: Performed By: #### A MM #### [facility] [address] [place] [address] Dr. Ibis Jimenez MONO # 0.7 103/ul Normal 0.3-0.8 [facility] Comment on above: Performed By: #### A MM #### [facility] [address] [place] [address] Dr. Ibis Jimenez Monocytes/100 WBC (Bld) 8.7 % Normal 1.7-12.0 [facility] Comment on above: Performed By: #### A MM #### [facility] [address] [place] [address] Dr. Ibis Jimenez NEUT # 4.7 103/ul Normal 1.4-6.5 [facility] Comment on above: Performed By: #### A MM #### [facility] [address] [place] [address] Dr. Ibis Jimenez Neutrophils/100 WBC (Bld) 60.5 % Normal 43.0-75.0 [facility] Comment on above: Performed By: #### A MM #### [facility] [address] [place] [address] Dr. Ibis Jimenez Platelet mean volume (Bld) [Entitic vol] 9.6 fL Normal 9.5-13.5 [facility] Comment on above: Performed By: #### A MM #### [facility] [address] [place] [address] Dr. Iibs Jimenez PLT 212 103/ul Normal 150-450 [facility] Comment on above: Performed By: #### A MM #### [facility] [address] [place] [address] Dr. Ibis Jimenez RBC 4.21 106/ul Normal 4.20-5.40 [facility] Comment on above: Performed By: #### A MM #### [facility] [address] [place] [address] Dr. Ibis Jimenez WBC 7.7 103/ul Normal 4.0-11.0 [facility] Comment on above: Performed By: #### A MM #### [facility] [address] [place] [address] ABD/PELV W CONon [...] TONY DAHL Date: 2022-01-14 20:01 Normal [facility] URINE PROFILEon 2 Bilirubin Ql (U) Negative Normal NEGATIVE [facility] Comment on above: Performed By: #### A CET, SALYC #### [facility] [address] [place] [address] Dr. Ibis Jimenez Clarity (U) CLEAR Normal CLEAR [facility] Comment on above: Performed By: #### A CET, SALYC #### [facility] [address] [place] [address] Dr. Ibis Jimenez Color (U) LT. YELLOW Normal YELLOW [facility] Comment on above: Performed By: #### A CET, SALYC #### [facility] [address] [place] [address] Dr. Ibis RODRIGUEZ A micrscopic examination will be performed if indicated. Normal [facility] Comment on above: Performed By: #### A CET, SALYC #### [facility] [address] [address] [address] Ibis Jimenez Glucose Ql (U) Negative Normal NEGATIVE [facility] Comment on above: Performed By: #### A CET, SALYC #### [facility] [address] [address] [address] Ibis Jimenez Hemoglobin Ql (U) Negative Normal NEGATIVE [facility] Comment on above: Performed By: #### A CET, SALYC #### [facility] [address] [place] [address] Dr. Ibis Jimenez Ketones Ql (U) Negative Normal NEGATIVE [facility] Comment on above: Performed By: #### A CET, SALYC #### [facility] [address] [place] [address] Dr. Ibis Jimenez LEUKOCYTES TRACE Abnormal NEGATIVE [facility] Comment on above: Performed By: #### A CET, SALYC #### [facility] [address] [place] [address] Dr. Ibis Jimenez Nitrite Ql (U) Negative Normal NEGATIVE [facility] Comment on above: Performed By: #### A CET, SALYC #### [facility] [address] [place] [address] Dr. Ibis Jimenez pH (U) 5.5 [pH] Normal 5-9 [facility] Comment on above: Performed By: #### A CET, SALYC #### [facility] [address] [place] [address] Dr. Ibis Jimenez SPEC GRAVITY 1.025 Normal 1.005-<=1.[address] [place] [address] Comment on above: Performed By: #### A CET, SALYC #### [facility] [address] [place] [address] Dr. Ibis Jimenez UA PROTEIN Negative Normal NEGATIVE/ TRACE [facility] Comment on above: Performed By: #### A CET, SALYC #### [facility] [address] [place] [address] Dr. Ibis Jimenez UR MICRO IND INDICATED Normal [facility] Comment on above: Performed By: #### A CET, SALYC #### [facility] [address] [place] [address] Dr. Ibis Jimenez Urobilinogen Qn (U) 0.2 {Dinorah'U}/dL Normal 0.2 - 1. 0 [facility] Comment on above: Performed By: #### A CET, SALYC #### [facility] [address] [place] [address] Dr. Ibis Jimenez URon 01-14-2022 , QUAL Negative Normal NEGATIVE [facility] Comment on above: Performed By: #### A CET, SALYC #### [facility] [address] [place] [address] Dr. Ibis Jimenez PROF CHEM 8 (BAS METB)on Anion gap [Moles/Vol] 9.9 mmol/L Normal [facility] Comment on above: Performed By: #### B MP #### [facility] [address] [address] [address] Ibis Jimenez Calcium [Mass/Vol] 8.6 mg/dL Normal 8.5-10.1 [facility] Comment on above: Performed By: #### B MP #### [facility] [address] [address] [address] Ibis Jimenez Chloride [Moles/Vol] 105 mmol/L Normal 98-107 [facility] Comment on above: Performed By: #### B MP #### [facility] [address] [place] [address] Dr. Ibis Jimenez CO2 [Moles/Vol] 27.5 mmol/L Normal 21.0-32.[address] [facility] Comment on above: Performed By: #### B MP #### [facility] [address] [address] [address] Ibis Jimenez Creatinine [Mass/Vol] 0.70 mg/dL Normal 0.55-1.02 [facility] Comment on above: Performed By: #### B MP #### [facility] [address] [place] [address] Dr. Ibis Jimenez EGFR-AF TUVALUAN >60 Normal >=[address] [facility] Comment on above: Performed By: #### B MP #### [facility] [address] [address] [address] Ibis Jimenez EGFR-NON AF TUVALUAN >60 Normal >=60 [facility] Comment on above: Performed By: #### B MP #### [facility] [address] [address] [address] Ibis Jimenez Glucose [Mass/Vol] 83 mg/dL Normal 74-106 [facility] Comment on above: Performed By: #### B MP #### [facility] [address] [address] [address] Ibis Jimenez Potassium [Moles/Vol] 4.4 mmol/L Normal 3.5-5.1 [facility] Comment on above: Performed By: #### B MP #### [facility] [address] [place] [address] Dr. Ibis Jimenez Sodium [Moles/Vol] 138 mmol/L Normal 136-145 [facility] Comment on above: Performed By: #### B MP #### [facility] [address] [place] [address] Dr. Ibis Jimenez Urea nitrogen [Mass/Vol] 13.0 mg/dL Normal 7.0-18.0 [facility] Comment on above: Performed By: #### B MP #### [facility] [address] [place] [address] Dr. Ibis Jimenez Urea nitrogen/Creatinine [Mass ratio] 18.6 mg/mg Normal [facility] Comment on above: Performed By: #### B MP #### [facility] [address] [place] [address] Dr. Ibis Jimenez URINE MICROSCOPIC ONLYon BACTERIA NONE SEEN Normal NONE SEEN [facility] Comment on above: Performed By: #### A CET, SALYC #### [facility] [address] [place] [address] Dr. Ibis Jimenez Bacteria identified Cx Nom (U) NOT INDICATED Normal [facility] Comment on above: Performed By: #### A CET, SALYC #### [facility] [address] [place] [address] Dr. Ibis Jimenez CAST NONE SEEN Normal NONE SEEN [facility] Comment on above: Performed By: #### A CET, SALYC #### [facility] [address] [place] [address] Dr. Ibis Jimenez Crystals LM Nom (Urine sed) NONE SEEN Normal NONE SEEN [facility] Comment on above: Performed By: #### A CET, SALYC #### [facility] [address] [place] [address] Dr. Ibis Jimenez Epithelial cells LM Ql (Urine sed) FEW Abnormal NONE SEEN /RARE [facility] Comment on above: Performed By: #### A CET, SALYC #### [facility] [address] [place] [address] Dr. Ibis Jimenez MUCOUS NONE SEEN Normal NONE SEEN [facility] Comment on above: Performed By: #### A CET, SALYC #### [facility] [address] [place] [address] Dr. Ibis Jimenez RBC NONE SEEN Abnormal 0-2 [facility] Comment on above: Performed By: #### A CET, SALYC #### [facility] [address] [place] [address] Dr. bIis Jimenez WBC NONE SEEN Normal NONE SEEN [facility] Comment on above: Performed By: #### A CET, SALYC #### [facility] [address] [place] [address] Dr. Ibis Jimenez CBC AUTO DIFFon 01-07-2022 BASO # 0.0 103/ul Normal 0.0-0.1 [facility] Comment on above: Performed By: #### A CET, SALYC #### [facility] [address] [place] [address] Dr. Ibis Jimenez Basophils/100 WBC (Bld) 0.2 % Normal 0.2-2.0 [facility] Comment on above: Performed By: #### A CET, SALYC #### [facility] [address] [place] [address] Dr. Ibis Jimenez EO # 0.0 103/ul Normal 0.0-0.7 [facility] Comment on above: Performed By: #### A CET, SALYC #### [facility] [address] [place] [address] Dr. Ibis Jimenez Eosinophils/100 WBC (Bld) 0.4 % Critically low 0.9-7.0 [facility] Comment on above: Performed By: #### A CET, SALYC #### [facility] [address] [place] [address] Dr. Ibis Jimenez Erythrocyte distribution width (RBC) [Ratio] 13.2 % Normal 11.0-15.0 [facility] Comment on above: Performed By: #### A CET, SALYC #### [facility] [address] [place] [address] Dr. Ibis Jimenez Hematocrit (Bld) [Volume fraction] 39.7 % Normal 36.0-48.0 [facility] Comment on above: Performed By: #### A CET, SALYC #### [facility] [address] [place] [address] Dr. Ibis Jimenez Hemoglobin (Bld) [Mass/Vol] 13.4 g/dL Normal 12.0-16.0 [facility] Comment on above: Performed By: #### A CET, SALYC #### [facility] [address] [place] [address] Dr. Ibis Jimenez IG # 0.06 10e3/ul Critically high 0.00-0.03 [facility] Comment on above: Performed By: #### A CET, SALYC #### [facility] [address] [place] [address] Dr. Iibs Jimenez IG % 0.5 % Normal 0.0-0.5 [facility] Comment on above: Performed By: #### A CET, SALYC #### [facility] [address] [place] [address] Dr. Ibis Jimenez LYMPH # 2.6 103/ul Normal 1.2-3.8 [facility] Comment on above: Performed By: #### A CET, SALYC #### [facility] [address] [place] [address] Dr. Ibis Jimenez Lymphocytes/100 WBC (Bld) 23.8 % Normal 20.5-60.0 [facility] Comment on above: Performed By: #### A CET, SALYC #### [facility] [address] [place] [address] Dr. Ibis Jimenez MANUAL DIFF REQ NO Normal [facility] Comment on above: Performed By: #### A CET, SALYC #### [facility] [address] [place] [address] Dr. Ibis Jimenez MCH (RBC) [Entitic mass] 28.8 pg Normal 26.7-34.0 [facility] Comment on above: Performed By: #### A CET, SALYC #### [facility] [address] [address] [address] Ibis Jimenez MCHC (RBC) [Mass/Vol] 33.8 g/dL Normal 29.9-35.2 [facility] Comment on above: Performed By: #### A CET, SALYC #### [facility] [address] [place] [address] Dr. Ibis Jimenez MCV (RBC) [Entitic vol] 85.2 fL Normal 81.0-99.0 [facility] Comment on above: Performed By: #### A CET, SALYC #### [facility] [address] [place] [address] Dr. Ibis Jimenez MONO # 0.8 103/ul Normal 0.3-0.8 [facility] Comment on above: Performed By: #### A CET, SALYC #### [facility] [address] [place] [address] Dr. Ibis Jimenez Monocytes/100 WBC (Bld) 7.7 % Normal 1.7-12.0 [facility] Comment on above: Performed By: #### A CET, SALYC #### [facility] [address] [place] [address] Dr. Ibis Jimenez NEUT # 7.4 103/ul Critically high 1.4-6.5 [facility] Comment on above: Performed By: #### A CET, SALYC #### [facility] [address] [address] [address] Ibis Jimenez Neutrophils/100 WBC (Bld) 67.4 % Normal 43.0-75.0 [facility] Comment on above: Performed By: #### A CET, SALYC #### [facility] [address] [address] [address] Ibis Jimenez Platelet mean volume (Bld) [Entitic vol] 9.8 fL Normal 9.5-13.5 [facility] Comment on above: Performed By: #### A CET, SALYC #### [facility] [address] [address] [address] Ibis Jimenez PLT 261 103/ul Normal 150-450 [facility] Comment on above: Performed By: #### A CET, SALYC #### [facility] [address] [address] [address] Ibis Jimenez RBC 4.66 106/ul Normal 4.20-5.40 [facility] Comment on above: Performed By: #### A CET, SALYC #### [facility] [address] [address] [address] Ibis Jimenez WBC 10.9 103/ul Normal 4.0-11.0 [facility] Comment on above: Performed By: #### A CET, SALYC #### [facility] [address] [place] [address] Dr. Ibis Jimenez PROF CHEM 8 (BAS METB)on Anion gap [Moles/Vol] 14.1 mmol/L Normal [facility] Comment on above: Performed By: #### B MP #### [facility] [address] [place] [address] Dr. Ibis Jimenez Calcium [Mass/Vol] 8.5 mg/dL Normal 8.5-10.1 [facility] Comment on above: Performed By: #### B MP #### [facility] [address] [place] [address] Dr. Ibis Jimenez Chloride [Moles/Vol] 103 mmol/L Normal 98-107 [facility] Comment on above: Performed By: #### B MP #### [facility] [address] [place] [address] Dr. Ibis Jimenez CO2 [Moles/Vol] 22.5 mmol/L Normal 21.0-32.0 [facility] Comment on above: Performed By: #### B MP #### [facility] [address] [place] [address] Dr. Ibis Jimenez Creatinine [Mass/Vol] 0.64 mg/dL Normal 0.55-1.02 [facility] Comment on above: Performed By: #### B MP #### [facility] [facility] [address] [place] [address] Dr. Ibis Jimenez EGFR-AF TUVALUAN >60 Normal >=60 [facility] Comment on above: Performed By: #### B MP #### [facility] [address] [address] [address] Ibis Jimenez EGFR-NON AF TUVALUAN >60 Normal >=60 [facility] Comment on above: Performed By: #### B MP #### [facility] [address] [address] [address] Ibis Jimenez Glucose [Mass/Vol] 141 mg/dL Critically high 74-106 [facility] Comment on above: Performed By: #### B MP #### [facility] [address] [address] [address] Ibis Jimenez Potassium [Moles/Vol] 3.6 mmol/L Normal 3.5-5.1 [facility] Comment on above: Performed By: #### B MP #### [facility] [address] [place] [address] Dr. Ibis Jimenez Sodium [Moles/Vol] 136 mmol/L Normal 136-145 [facility] Comment on above: Performed By: #### B MP #### [facility] [address] [place] [address] Dr. Ibis Jimenez Urea nitrogen [Mass/Vol] 16.0 mg/dL Normal 7.0-18.0 [facility] Comment on above: Performed By: #### B MP #### [facility] [address] [address] [address] Ibis Jimenez Urea nitrogen/Creatinine [Mass ratio] 25.0 mg/mg Normal [facility] Comment on above: Performed By: #### B MP #### [facility] [address] [address] [address] Ibis Jimenez CBC AUTO DIFFon 11-04-2021 BASO # 0.0 103/ul Normal 0.0-0.1 [facility] Comment on above: Performed By: #### A CET, SALYC #### [facility] [address] [address] [address] Ibis Jimenez Basophils/100 WBC (Bld) 0.4 % Normal 0.2-2.0 [facility] Comment on above: Performed By: #### A CET, SALYC #### [facility] [address] [place] [address] Dr. Ibis Jimenez EO # 0.2 103/ul Normal 0.0-0.7 [facility] Comment on above: Performed By: #### A CET, SALYC #### [facility] [address] [place] [address] Dr. Ibis Jimenez Eosinophils/100 WBC (Bld) 4.1 % Normal 0.9-7.0 [facility] Comment on above: Performed By: #### A CET, SALYC #### [facility] [address] [place] [address] Dr. Ibis Jimenez Erythrocyte distribution width (RBC) [Ratio] 13.2 % Normal 11.0-15.0 [facility] Comment on above: Performed By: #### A CET, SALYC #### [facility] [address] [place] [address] Dr. Ibis Jimenez Hematocrit (Bld) [Volume fraction] 34.3 % Critically low 36.0-48.0 [facility] Comment on above: Performed By: #### A CET, SALYC #### [facility] [address] [place] [address] Dr. Ibis Jimenez Hemoglobin (Bld) [Mass/Vol] 11.5 g/dL Critically low 12.0-16.0 [facility] Comment on above: Performed By: #### A CET, SALYC #### [facility] [address] [place] [address] Dr. Ibis Jimenez IG # 0.01 10e3/ul Normal 0.00-0.03 [facility] Comment on above: Performed By: #### A CET, SALYC #### [facility] [address] [place] [address] Dr. Ibis Jimenez IG % 0.2 % Normal 0.0-0.5 [facility] Comment on above: Performed By: #### A CET, SALYC #### [facility] [address] [place] [address] Dr. Ibis Jimenez LYMPH # 1.5 103/ul Normal 1.2-3.8 [facility] Comment on above: Performed By: #### A CET, SALYC #### [facility] [address] [place] [address] Dr. Ibis Jimenez Lymphocytes/100 WBC (Bld) 26.4 % Normal 20.5-60.0 [facility] Comment on above: Performed By: #### A CET, SALYC #### [facility] [address] [place] [address] Dr. Ibis Jimenez MANUAL DIFF REQ NO Normal [facility] Comment on above: Performed By: #### A CET, SALYC #### [facility] [address] [place] [address] Dr. Ibis Jimenez MCH (RBC) [Entitic mass] 28.8 pg Normal 26.7-34.0 [facility] Comment on above: Performed By: #### A CET, SALYC #### [facility] [address] [place] [address] Dr. Ibis Jimenez MCHC (RBC) [Mass/Vol] 33.5 g/dL Normal 29.9-35.2 [facility] Comment on above: Performed By: #### A CET, SALYC #### [facility] [address] [place] [address] Dr. Ibis Jimenez MCV (RBC) [Entitic vol] 86.0 fL Normal 81.0-99.0 [facility] Comment on above: Performed By: #### A CET, SALYC #### [facility] [address] [place] [address] Dr. Ibis Jimenez MONO # 0.5 103/ul Normal 0.3-0.8 [facility] Comment on above: Performed By: #### A CET, SALYC #### [facility] [address] [place] [address] Dr. Ibis Jimenez Monocytes/100 WBC (Bld) 8.2 % Normal 1.7-12.0 [facility] Comment on above: Performed By: #### A CET, SALYC #### [facility] [address] [place] [address] Dr. Ibis Jimenez NEUT # 3.4 103/ul Normal 1.4-6.5 [facility] Comment on above: Performed By: #### A CET, SALYC #### [facility] [address] [place] [address] Dr. Ibis Jimenez Neutrophils/100 WBC (Bld) 60.7 % Normal 43.0-75.0 [facility] Comment on above: Performed By: #### A CET, SALYC #### [facility] [address] [place] [address] Dr. Ibis Jimenez Platelet mean volume (Bld) [Entitic vol] 9.9 fL Normal 9.5-13.5 [facility] Comment on above: Performed By: #### A CET, SALYC #### [facility] [address] [place] [address] Dr. Ibis Jimenez PLT 222 103/ul Normal 150-450 [facility] Comment on above: Performed By: #### A CET, SALYC #### [facility] [address] [place] [address] Dr. Ibis Jimenez RBC 3.99 106/ul Critically low 4.20-5.40 [facility] Comment on above: Performed By: #### A CET, SALYC #### [facility] [address] [place] [address] Dr. Ibis Jimenez WBC 5.6 103/ul Normal 4.0-11.0 [facility] Comment on above: Performed By: #### A CET, SALYC #### [facility] [address] [place] [address] Dr. Ibis Jimenez PROF CHEM 8 (BAS METB)on Anion gap [Moles/Vol] 10.5 mmol/L Normal [facility] Comment on above: Performed By: #### B MP #### [facility] [address] [place] [address] Dr. Ibis Jimenez Calcium [Mass/Vol] 8.8 mg/dL Normal 8.5-10.1 [facility] Comment on above: Performed By: #### B MP #### [facility] [address] [address] [address] Ibis Jimenez Chloride [Moles/Vol] 105 mmol/L Normal 98-107 [facility] Comment on above: Performed By: #### B MP #### [facility] [address] [address] [address] Ibis Jimenez CO2 [Moles/Vol] 24.9 mmol/L Normal 21.0-32.[address] [facility] Comment on above: Performed By: #### B MP #### [facility] [address] [address] [address] Ibis Jimenez Creatinine [Mass/Vol] 0.71 mg/dL Normal 0.55-1.02 [facility] Comment on above: Performed By: #### B MP #### [facility] [address] [place] [address] Dr. Ibis Jimenez EGFR-AF TUVALUAN >60 Normal >=[address] [facility] Comment on above: Performed By: #### B MP #### [facility] [address] [address] [address] Ibis Jimenez EGFR-NON AF TUVALUAN >60 Normal >=60 [facility] Comment on above: Performed By: #### B MP #### [facility] [address] [address] [address] Ibis Jimenez Glucose [Mass/Vol] 103 mg/dL Normal 74-106 [facility] Comment on above: Performed By: #### B MP #### [facility] [address] [address] [address] Ibis Jimenez Potassium [Moles/Vol] 3.4 mmol/L Critically low 3.5-5.1 [facility] Comment on above: Performed By: #### B MP #### [facility] [address] [address] [address] Ibis Jimenez Sodium [Moles/Vol] 137 mmol/L Normal 136-145 [facility] Comment on above: Performed By: #### B MP #### [facility] [address] [address] [address] Ibis Jimenez Urea nitrogen [Mass/Vol] 17.0 mg/dL Normal 7.0-18.0 [facility] Comment on above: Performed By: #### B MP #### [facility] [address] [place] [address] [address] [address] Ibis Jimenez Urea nitrogen/Creatinine [Mass ratio] 23.9 mg/mg Normal [facility] Comment on above: Performed By: #### B MP #### [facility] [address] [place] [address] [address] [address] Ibis Jimenez Basic Metab w/rfx MGon 10-20 (cont.) Normal [facility] Comment on above: Result Comment: Aver age GFR for 20-29 years old: 116 mL/min/1.73sq m Chronic Kidney Disease: <60 mL/min/1.73sq m Kidney failure: <15 mL/min/1.73sq m eGFR calculated using average adult body mass. Additional eGFR calculator available at: http://www.Heap/multiple_crcl_2011.htm Performed By: #### B MPX #### [facility] [address] [place] [phone] Car Record Clerk: Tavon Nicole MD Anion gap [Moles/Vol] 10 mmol/L Normal 9-17 [facility] Comment on above: Performed By: #### B MPX #### [address] [address] Car Record Clerk: Tavon Nicole MD Calcium [Mass/Vol] 7.8 mg/dL Low 8.6-10.4 [facility] Comment on above: Performed By: #### B MPX #### [facility] [address] [place] [phone] Car Record Clerk: Tavon Nicole MD Chloride [Moles/Vol] 109 mmol/L High 98-107 [facility] Comment on above: Performed By: #### B MPX #### [facility] [address] [place] [phone] Car Record Clerk: Tavon Nicole MD CO2 [Moles/Vol] 20 mmol/L Normal 20-31 [facility] Comment on above: Performed By: #### B MPX #### [address] [address] Car Record Clerk: Tavon Nicole MD Creatinine [Mass/Vol] 0.45 mg/dL Low 0.50-0.90 [facility] Comment on above: Performed By: #### B MPX #### [address] [address] Car Record Clerk: Tavon Nicole MD GFR, Amer >60 Normal >60 [facility] Comment on above: Performed By: #### B MPX #### [address] [address] Car Record Clerk: Tavon Nicole MD GFR,non Amer >60 Normal >60 [facility] Comment on above: Performed By: #### B MPX #### [address] [address] Car Record Clerk: Tavon Nicole MD Glucose [Mass/Vol] 84 mg/dL Normal 70-99 [facility] Comment on above: Performed By: #### B MPX #### [address] [address] Car Record Clerk: Tavon Nicole MD Potassium [Moles/Vol] 4.1 mmol/L Normal 3.7-5.3 [facility] Comment on above: Result Comment: SPEC IMEN SLIGHTLY HEMOLYZED, RESULTS MAY BE ADVERSELY AFFECTED. Performed By: #### B MPX #### [address] [address] Car Record Clerk: Tavon Nicole MD Sodium [Moles/Vol] 139 mmol/L Normal 135-144 [facility] Comment on above: Performed By: #### B MPX #### [facility] [address] [place], [place] [phone] Car Record Clerk: Tavon Nicole MD Urea nitrogen [Mass/Vol] 8 mg/dL Normal 6-20 [facility] Comment on above: Performed By: #### B MPX #### [facility] [address] [place], [place] [phone] Car Record Clerk: Tavon Nicole MD Basic Metabolic Panel w/ Ref rossi to MGon 10-20-2021 Anion gap [Moles/Vol] 10 mmol/L 9 - 17 mmol/L [facility] Calcium [Mass/Vol] 7.8 mg/dL Low 8.6 - 10. 4 mg/dL [facility] Chloride [Moles/Vol] 109 mmol/L High 98 - 10 7 mmol/L [facility] CO2 [Moles/Vol] 20 mmol/L 20 - 31 mmol/L [facility] Creatinine [Mass/Vol] 0.45 mg/dL Low 0.5 - 0.9 mg/dL [facility] GFR >60 60 - PI NF mL/min VCV GFR Non- >60 60 - PINF mL/min [facility] GFR/1.73 sq M.predicted MDRD (S/P/Bld) [Vol rate/Area] [facility] Comment on above: Average GFR for 20-2 9 years old: 116 mL/min/1.73sq m Chronic Kidney Disease: <60 mL/min/1.73sq m Kidney failure: <15 mL/min/1.73sq m eGFR calculated using average adult body mass. Additional eGFR calculator available at: http://www.Tablo.Calendly/multiple_crcl_2012.htm Glucose [Mass/Vol] 84 mg/dL 70 - 99 mg/dL [facility] Interpretation and review of laboratory results Abnormal [facility] Potassium [Moles/Vol] 4.1 mmol/L 3.7 - 5.3 mmol/L [facility] Comment on above: SPECIMEN SLIGHTLY HE MOLYZED, RESULTS MAY BE ADVERSELY AFFECTED. Sodium [Moles/Vol] 139 mmol/L 135 - 144 mmol/L [facility] Urea nitrogen (BldV) [Mass/Vol] 8 mg/dL 6 - 20 mg/dL [facility] CBC with Auto Differentialon 10-20-2021 Absolute Eos # 0.15 [facility] Absolute Immature Granulocyte [facility] Absolute Lymph # 1.48 [facility] SECO URS [facility] Absolute [place] # 0.28 [facility] RS [facility] Basophils (Bld) [#/Vol] 0.03 10*3/uL [facility] Basophils/100 WBC (Bld) 1 % 0 - 2 % [facility] Eosinophils/100 WBC (Bld) 3 % 1 - 4 % [facility] Hematocrit (Bld) [Volume fraction] 35.5 % Low 36.3 - 47.1 % [facility] Hemoglobin (Bld) [Mass/Vol] 11.3 g/dL Low 11.9 - 15.1 g/dL [facility] Immature granulocytes/100 WBC (Bld) 0 % 0 [facility] Interpretation and review of laboratory results Abnormal [facility] Lymphocytes/100 WBC (Bld) 34 % 24 - 43 % [facility] MCH (RBC) [Entitic mass] 27.9 pg 25.2 - 33.5 pg [facility] MCHC (RBC) [Mass/Vol] 31.8 g/dL 28.4 - 34.8 g/dL [facility] MCV (RBC) [Entitic vol] 87.7 fL 82.6 - 102.9 fL [facility] Monocytes/100 WBC (Bld) 6 % 3 - 12 % [facility] NRBC Automated 0.0 0.0 per 100 WBC [facility] Platelet distribution width (Bld) [Ratio] 12.9 % 11.8 - 14.4 % [facility] Platelets (Bld) [#/Vol] See Reflexed IPF Result [facility] RBC (Bld) [#/Vol] 4.05 10*6/uL 3.95 - 5.1 1 m/uL [facility] Segmented neutrophils/100 WBC (Bld) 55 % 36 - 65 % [facility] Segs Absolute 2.42 [facility] WBC (Bld) [#/Vol] 4.4 10*3/uL [facility] CBC with Diffon 10-20-2021 Abs. Basophil 0.03 k/uL Normal 0.00-0.20 [facility] Comment on above: Performed By: #### C DP, IPF #### [facility] [address] [place] [phone] Car Record Clerk: Tavon Nicole MD Abs.Imm.Granulocyte <0.03 Normal 0.00-0.30 [facility] Comment on above: Performed By: #### C DP, IPF #### [place] [address] Car Record Clerk: Tavon Nicole MD Abs.Neutrophil (Seg) 2.42 k/uL Normal 1.50-8.10 [facility] Comment on above: Performed By: #### C DP, IPF #### [address] [address] Car Record Clerk: Tavon Nicole MD Basophils/100 WBC (Bld) 1 % Normal 0-2 [facility] Comment on above: Performed By: #### C DP, IPF #### [address] [address] Car Record Clerk: Tavon Nicole MD Eosinophils (Bld) [#/Vol] 0.15 10*3/uL Normal 0.00-0.44 [facility] Comment on above: Performed By: #### C DP, IPF #### [facility] [address] [place] [phone] Car Record Clerk: Tavon Nicole MD Eosinophils/100 WBC (Bld) 3 % Normal 1-4 [facility] Comment on above: Performed By: #### C DP, IPF #### [address] [address] Car Record Clerk: Tavon Nicole MD Immature granulocytes/100 WBC (Bld) 0 % Normal 0 [facility] Comment on above: Performed By: #### C DP, IPF #### [address] [address] Car Record Clerk: Tvaon Nicole MD Lymphocytes (Bld) [#/Vol] 1.48 10*3/uL Normal 1.10-3.70 [facility] Comment on above: Performed By: #### C DP, IPF #### [address] [address] Car Record Clerk: Tavon Nicole MD Lymphocytes/100 WBC (Bld) 34 % Normal 24-43 [facility] Comment on above: Performed By: #### C DP, IPF #### [address] [address] Car Record Clerk: Tavon Nicole MD Monocytes (Bld) [#/Vol] 0.28 10*3/uL Normal 0.10-1.20 [facility] Comment on above: Performed By: #### C DP, IPF #### [address] [address] Car Record Clerk: Tavon Nicole MD Monocytes/100 WBC (Bld) 6 % Normal 3-12 [facility] Comment on above: Performed By: #### C DP, IPF #### [address] [address] Car Record Clerk: Tavon Nicole MD Neutrophil (Seg) 55 % Normal 36-65 [facility] Comment on above: Performed By: #### C DP, IPF #### [address] [address] Car Record Clerk: Tavon Nicole MD Erythrocyte distribution width (RBC) [Ratio] 12.9 % Normal 11.8-14.4 [facility] Comment on above: Performed By: #### C DP, IPF #### [address] [address] Car Record Clerk: Tavon Nicole MD Hematocrit (Bld) [Volume fraction] 35.5 % Low 36.3-47.1 [facility] Comment on above: Performed By: #### C DP, IPF #### [address] [address] Car Record Clerk: Tavon Nicole MD Hemoglobin (Bld) [Mass/Vol] 11.3 g/dL Low 11.9-15.1 [facility] Comment on above: Performed By: #### C DP, IPF #### [address] [address] Car Record Clerk: Tavon Nicole MD MCH (RBC) [Entitic mass] 27.9 pg Normal 25.2-33.5 [facility] Comment on above: Performed By: #### C DP, IPF #### [address] [address] Car Record Clerk: Tavon Nicole MD MCHC (RBC) [Mass/Vol] 31.8 g/dL Normal 28.4-34.8 [facility] Comment on above: Performed By: #### C DP, IPF #### [address] [address] Car Record Clerk: Tavon Nicole MD MCV (RBC) [Entitic vol] 87.7 fL Normal 82.6-102.9 [facility] Comment on above: Performed By: #### C DP, IPF #### [address] [address] Car Record Clerk: Tavon Nicole MD NRBC Automated 0.0 per 100 WBC Normal 0.0 [facility] Comment on above: Performed By: #### C DP, IPF #### [address] [place] [address] Car Record Clerk: Tavon Nicole MD Platelet Count See Reflexed IPF Result Normal 138-453 [facility] Comment on above: Performed By: #### C DP, IPF #### [facility] [address] [place] [address] Car Record Clerk: Tavon Nicole MD RBC (Bld) [#/Vol] 4.05 10*6/uL Normal 3.95-5.11 [facility] Comment on above: Performed By: #### C DP, IPF #### [facility] [address] [place] [phone] Car Record Clerk: Tavon Nicole MD WBC (Bld) [#/Vol] 4.4 10*3/uL Normal 3.5-11.3 [facility] Comment on above: Performed By: #### C DP, IPF #### [address] [address] Car Record Clerk: Tavon Nicole MD EEG video monitoringon 10-20 Raiza Land MD 10/20/2021 12:11 PM Referring physician: Chris Blanchard APRN Date:10/20/2021 Start Time:10/19/2021 @1258 End Time: 10/20/2021 @ 1200 Indication Patient with recurrent events Introduction This continuous video-EEG was acquired using a [employer]over 3[employer] workstation at 256 samples/s. Electrodes were placed [...] Board Certified. Neurology Board Certified. Electronically Signed Code Blue Phone: EEG video monitoringOrdered By: Raiza Land on 10-20-2021 Code Blue Phone: Immature Platelet Fractionon 10-20-2021 Platelet, Fluorescence Platelet clumps present, count appears adequate. [facility] Interface21 [facility] PLT, Immature Fract.on 10-20 Platelet, Fluoresc. Platelet clumps present, count appears adequate. Normal 138-453 [facility] Comment on above: Performed By: #### C DP, IPF #### [facility] [address] [place] [phone] Car Record Clerk: Tavon Nicole MD PROLACTINon 10-20-2021 Prolactin 41.7 ng/mL Critically high 4.8-23.3 [facility] Comment on above: Performed By: #### C VDTBH #### [facility] [address] [place], [place] [address] Dr. Ibis Jimenez CBCon 10-19-2021 Erythrocyte distribution width (RBC) [Ratio] 12.9 % Normal 11.8-14.4 [facility] Comment on above: Performed By: #### T ROPI, LACTIC, CMPX, CBC #### [facility] [place] [address] Car Record Clerk: Tavon Nicole MD Hematocrit (Bld) [Volume fraction] 31.5 % Low 36.3-47.1 [facility] Comment on above: Performed By: #### T ROPI, LACTIC, CMPX, CBC #### [address] [address] Car Record Clerk: Tavon Nicole MD Hemoglobin (Bld) [Mass/Vol] 10.8 g/dL Low 11.9-15.1 [facility] Comment on above: Performed By: #### T ROPI, LACTIC, CMPX, CBC #### [address] [address] Car Record Clerk: Tavon Nicole MD MCH (RBC) [Entitic mass] 29.1 pg Normal 25.2-33.5 [facility] Comment on above: Performed By: #### T ROPI, LACTIC, CMPX, CBC #### [address] [address] Car Record Clerk: Tavon Nicole MD MCHC (RBC) [Mass/Vol] 34.3 g/dL Normal 28.4-34.8 [facility] Comment on above: Performed By: #### T ROPI, LACTIC, CMPX, CBC #### [address] [address] Car Record Clerk: Tavon Nicole MD MCV (RBC) [Entitic vol] 84.9 fL Normal 82.6-102.9 [facility] Comment on above: Performed By: #### T ROPI, LACTIC, CMPX, CBC #### [address] [address] Car Record Clerk: Tavon Nicole MD NRBC Automated 0.0 per 100 WBC Normal 0.0 [facility] Comment on above: Performed By: #### T ROPI, LACTIC, CMPX, CBC #### [address] [address] Car Record Clerk: Tavon Nicole MD Platelet mean volume (Bld) [Entitic vol] 9.8 fL Normal 8.1-13.5 [facility] Comment on above: Performed By: #### T ROPI LACTIC, CMPX, CBC #### [facility] [place] [address] Car Record Clerk: Tavon Nicole MD Platelets (Bld) [#/Vol] 281 10*3/uL Normal 138-453 [facility] Comment on above: Performed By: #### T ROPI, LACTIC, CMPX, CBC #### [facility] [address] [place] [phone] Car Record Clerk: Tavon Nicole MD RBC (Bld) [#/Vol] 3.71 10*6/uL Low 3.95-5.11 [facility] Comment on above: Performed By: #### T ROPI, LACTIC, CMPX, CBC #### [facility] [address] [place] [phone] Car Record Clerk: Tavon Nicole MD WBC (Bld) [#/Vol] 5.0 10*3/uL Normal 3.5-11.3 [facility] Comment on above: Performed By: #### T ROPI, LACTIC, CMPX, CBC #### [facility] [address] [place] [phone] Car Record Clerk: Tavon Nicole MD Hematocrit (Bld) [Volume fraction] 31.5 % Low 36.3 - 47.1 % [facility] Hemoglobin (Bld) [Mass/Vol] 10.8 g/dL Low 11.9 - 15.1 g/dL [facility] Interpretation and review of laboratory results Abnormal [facility] MCH (RBC) [Entitic mass] 29.1 pg 25.2 - 33.5 pg [facility] MCHC (RBC) [Mass/Vol] 34.3 g/dL 28.4 - 34.8 g/dL [facility] MCV (RBC) [Entitic vol] 84.9 fL 82.6 - 102.9 fL [facility] NRBC Automated 0.0 0.0 per 100 WBC [facility] Platelet distribution width (Bld) [Ratio] 12.9 % 11.8 - 14.4 % [facility] Platelet mean volume (Bld) [Entitic vol] 9.8 fL 8.1 - 13.5 fL [facility] Platelets (Bld) [#/Vol] 281 10*3/uL [facility] RBC (Bld) [#/Vol] 3.71 10*6/uL Low 3.95 - 5.1 1 m/uL [facility] WBC (Bld) [#/Vol] 5.0 10*3/uL [facility] CBC AUTO DIFFon 10-19-2021 EO # 0.2 103/ul Normal 0.0-0.7 [facility] Comment on above: Performed By: #### A MM #### [facility] [address] [place] [address] Dr. Ibis Jimenez Eosinophils/100 WBC (Bld) 3.9 % Normal 0.9-7.0 [facility] Comment on above: Performed By: #### A MM #### [facility] [address] [place] [address] Dr. Ibis Jimenez Erythrocyte distribution width (RBC) [Ratio] 13.1 % Normal 11.0-15.0 [facility] Comment on above: Performed By: #### A MM #### [facility] [address] [place] [address] Dr. Ibis Jimenez Hematocrit (Bld) [Volume fraction] 33.4 % Critically low 36.0-48.0 [facility] Comment on above: Performed By: #### A MM #### [facility] [address] [place] [address] Dr. Ibis Jimenez Hemoglobin (Bld) [Mass/Vol] 11.1 g/dL Critically low 12.0-16.0 [facility] Comment on above: Performed By: #### A MM #### [facility] [address] [place] [address] Dr. Ibis Jimenez LYMPH # 1.2 103/ul Normal 1.2-3.8 [facility] Comment on above: Performed By: #### A MM #### [facility] [address] [place] [address] Dr. Ibis Jimenez Lymphocytes/100 WBC (Bld) 25.9 % Normal 20.5-60.0 [facility] Comment on above: Performed By: #### A MM #### [facility] [address] [place] [address] Dr. Ibis Jimenez MCHC (RBC) [Mass/Vol] 33.2 g/dL Normal 29.9-35.2 [facility] Comment on above: Performed By: #### A MM #### [facility] [address] [place] [address] Dr. Ibis Jimenez MCV (RBC) [Entitic vol] 85.9 fL Normal 81.0-99.0 [facility] Comment on above: Performed By: #### A MM #### [facility] [address] [place] [address] Dr. Ibis Jimenez Monocytes/100 WBC (Bld) 7.7 % Normal 1.7-12.0 [facility] Comment on above: Performed By: #### A MM #### [facility] [address] [place] [address] Dr. Ibis Jimenez NEUT # 2.9 103/ul Normal 1.4-6.5 [facility] Comment on above: Performed By: #### A MM #### [facility] [address] [place] [address] Dr. Ibis Jimenez Neutrophils/100 WBC (Bld) 61.5 % Normal 43.0-75.0 [facility] Comment on above: Performed By: #### A MM #### [facility] [address] [place] [address] Dr. Ibis Jimenez PLT 264 103/ul Normal 150-450 [facility] Comment on above: Performed By: #### A MM #### [facility] [address] [place] [address] Dr. Ibis Jimenez RBC 3.89 106/ul Critically low 4.20-5.40 [facility] Comment on above: Performed By: #### A MM #### [facility] [address] [place] [address] Dr. Ibis Jimenez WBC 4.7 103/ul Normal 4.0-11.0 [facility] Comment on above: Performed By: #### A MM #### [facility] [address] [place] [address] Dr. Ibis Jimenez BASO # 0.0 103/ul Normal 0.0-0.1 [facility] Comment on above: Performed By: #### A MM #### [facility] [address] [place] [address] Dr. bIis Jimenez Performed By: #### C VDTBH #### [facility] [address] [place] [address] Dr. Ibis Jimenez Basophils/100 WBC (Bld) 0.6 % Normal 0.2-2.0 [facility] Comment on above: Performed By: #### A MM #### [facility] [address] [place] [address] Dr. Ibis Jimenez Performed By: #### C VDTBH #### [facility] [address] [place] [address] Dr. Ibis Jimenez EO # 0.3 103/ul Normal 0.0-0.7 [facility] Comment on above: Performed By: #### C VDTBH #### [facility] [address] [place] [address] Dr. Ibis Jimenez Eosinophils/100 WBC (Bld) 5.0 % Normal 0.9-7.0 [facility] Comment on above: Performed By: #### C VDTBH #### [facility] [address] [place] [address] Dr. Ibis Jimenez Erythrocyte distribution width (RBC) [Ratio] 12.8 % Normal 11.0-15.0 [facility] Comment on above: Performed By: #### C VDTBH #### [facility] [address] [place] [address] Dr. Ibis Jimenez Hematocrit (Bld) [Volume fraction] 38.0 % Normal 36.0-48.0 [facility] Comment on above: Performed By: #### C VDTBH #### [facility] [address] [place] [address] Dr. Ibis Jimenez Hemoglobin (Bld) [Mass/Vol] 12.7 g/dL Normal 12.0-16.0 [facility] Comment on above: Performed By: #### C VDTBH #### [facility] [address] [place] [address] Dr. Ibis Jimenez IG # 0.02 10e3/ul Normal 0.00-0.03 [facility] Comment on above: Performed By: #### A MM #### [facility] [address] [place] [address] Dr. Ibis Jimenez Performed By: #### C VDTBH #### [facility] [address] [place] [address] Dr. Ibis Jimenez IG % 0.4 % Normal 0.0-0.5 [facility] Comment on above: Performed By: #### A MM #### [facility] [address] [place] [address] Dr. Ibis Jimenez Performed By: #### C VDTBH #### [facility] [address] [place] [address] Dr. Ibis Jimenez LYMPH # 1.7 103/ul Normal 1.2-3.8 [facility] Comment on above: Performed By: #### C VDTBH #### [facility] [address] [place] [address] Dr. Ibis Jimenez Lymphocytes/100 WBC (Bld) 30.7 % Normal 20.5-60.0 [facility] Comment on above: Performed By: #### C VDTBH #### [facility] [address] [place] [address] Dr. Ibis Jimenez MANUAL DIFF REQ NO Normal [facility] Comment on above: Performed By: #### A MM #### [facility] [address] [place] [address] Dr. Ibis Jimenez Performed By: #### C VDTBH #### [facility] [address] [place] [address] Dr. Ibis Jimenez MCH (RBC) [Entitic mass] 28.5 pg Normal 26.7-34.0 [facility] Comment on above: Performed By: #### A MM #### [facility] [address] [place] [address] Dr. Ibis Jimenez Performed By: #### C VDTBH #### [facility] [address] [place] [address] Dr. Ibis Jimenez MCHC (RBC) [Mass/Vol] 33.4 g/dL Normal 29.9-35.2 [facility] Comment on above: Performed By: #### C VDTBH #### [facility] [address] [place] [address] Dr. Ibis Jimenez MCV (RBC) [Entitic vol] 85.2 fL Normal 81.0-99.0 [facility] Comment on above: Performed By: #### C VDTBH #### [facility] [address] [place] [address] Dr. Ibis Jimenez MONO # 0.4 103/ul Normal 0.3-0.8 [facility] Comment on above: Performed By: #### A MM #### [facility] [address] [place] [address] Dr. Ibis Jimenez Performed By: #### C VDTBH #### [facility] [address] [place] [address] Dr. Ibis Jimenez Monocytes/100 WBC (Bld) 8.1 % Normal 1.7-12.0 [facility] Comment on above: Performed By: #### C VDTBH #### [facility] [address] [place] [address] Dr. Ibis Jimenez NEUT # 3.0 103/ul Normal 1.4-6.5 [facility] Comment on above: Performed By: #### C VDTBH #### [facility] [address] [place] [address] Dr. Ibis Jimenez Neutrophils/100 WBC (Bld) 55.2 % Normal 43.0-75.0 [facility] Comment on above: Performed By: #### C VDTBH #### [facility] [address] [place] [address] Dr. Ibis Jimenez Platelet mean volume (Bld) [Entitic vol] 9.5 fL Normal 9.5-13.5 [facility] Comment on above: Performed By: #### A MM #### [facility] [address] [place] [address] Dr. Ibis Jimenez Performed By: #### C VDTBH #### [facility] [address] [place] [address] Dr. Ibis Jimenez PLT 343 103/ul Normal 150-450 [facility] Comment on above: Performed By: #### C VDTBH #### [facility] [address] [place] [address] Dr. Ibis Jimenez RBC 4.46 106/ul Normal 4.20-5.40 [facility] Comment on above: Performed By: #### C VDTBH #### [facility] [address] [place] [address] Dr. Ibis Jimenez WBC 5.4 103/ul Normal 4.0-11.0 [facility] Comment on above: Performed By: #### C VDTBH #### [facility] [address] [place] [address] HEAD WO CONon [...] LOPEZ REYNOLDS Date: 2021-10-19 07:31 Normal [facility] Comp Metabolic Pr/rfx MGon 0 10-19-2021 (cont.) Normal [facility] Comment on above: Result Comment: Aver age GFR for 20-29 years old: 116 mL/min/1.73sq m Chronic Kidney Disease: <60 mL/min/1.73sq m Kidney failure: <15 mL/min/1.73sq m eGFR calculated using average adult body mass. Additional eGFR calculator available at: http://www.Heap/multiple_crcl_2011.htm Performed By: #### T ROPI, LACTIC, CMPX, CBC #### [facility] [address] [place] [id number] Car Record Clerk: Tavon Nicole MD Albumin [Mass/Vol] 3.5 g/dL Normal 3.5-5.2 [facility] Comment on above: Performed By: #### T ROPI, LACTIC, CMPX, CBC #### [facility] [address] [place] [phone] Car Record Clerk: Tavon Nicole MD Albumin/Glob Ratio 1.4 Normal 1.0-2.5 [facility] Comment on above: Performed By: #### T ROPI, LACTIC, CMPX, CBC #### [facility] [address] [place] [id number] Car Record Clerk: Tavon Nicole MD Alkaline Phos 69 U/L Normal 35-104 [facility] Comment on above: Performed By: #### T ROPI, LACTIC, CMPX, CBC #### [facility] [address] [place] [address] [id number] Car Record Clerk: Tavon Nicole MD ALT [Catalytic activity/Vol] 15 U/L Normal 5-33 [facility] Comment on above: Performed By: #### T ROPI, LACTIC, CMPX, CBC #### [facility] [address] [place] [address] [phone] Car Record Clerk: Tavon Nicole MD Anion gap [Moles/Vol] 13 mmol/L Normal 9-17 [facility] Comment on above: Performed By: #### T ROPI, LACTIC, CMPX, CBC #### [facility] [address] [place] [phone] Car Record Clerk: Tavon Nicole MD AST [Catalytic activity/Vol] 12 U/L Normal <32 [facility] Comment on above: Performed By: #### T ROPI, LACTIC, CMPX, CBC #### [facility] [address] [place] [address] [phone] Car Record Clerk: Tavon Nicole MD Bilirubin [Mass/Vol] 0.24 mg/dL Low 0.3-1.2 [facility] Comment on above: Performed By: #### T ROPI, LACTIC, CMPX, CBC #### [facility] [address] [place] [address] [phone] Car Record Clerk: Tavon Nicole MD Calcium [Mass/Vol] 8.1 mg/dL Low 8.6-10.4 [facility] Comment on above: Performed By: #### T ROPI, LACTIC, CMPX, CBC #### [facility] [address] [place] [address] [phone] Car Record Clerk: Tavon Nicole MD Chloride [Moles/Vol] 107 mmol/L Normal 98-107 [facility] Comment on above: Performed By: #### T ROPI, LACTIC, CMPX, CBC #### [facility] [address] [place] [id number] Car Record Clerk: Tavon Nicole MD CO2 [Moles/Vol] 19 mmol/L Low 20-31 [facility] Comment on above: Performed By: #### T ROPI, LACTIC, CMPX, CBC #### [facility] [address] [place] [address] [phone] Car Record Clerk: Tavon Nicole MD Creatinine [Mass/Vol] 0.53 mg/dL Normal 0.50-0.90 [facility] Comment on above: Performed By: #### T ROPI, LACTIC, CMPX, CBC #### [facility] [address] [place] [address] [phone] Car Record Clerk: Tavon Nicole MD GFR, Amer >60 Normal >60 [facility] Comment on above: Performed By: #### T ROPI, LACTIC, CMPX, CBC #### [facility] [address] [place] [address] [phone] Car Record Clerk: Tavon Nicole MD GFR,non Amer >60 Normal >60 [facility] Comment on above: Performed By: #### T ROPI, LACTIC, CMPX, CBC #### [facility] [address] [place] [address] [phone] Car Record Clerk: Tavon Nicole MD Glucose [Mass/Vol] 81 mg/dL Normal 70-99 [facility] Comment on above: Performed By: #### T ROPI, LACTIC, CMPX, CBC #### [facility] [address] [place] [address] [phone] Car Record Clerk: Tavon Nicole MD Potassium [Moles/Vol] 3.9 mmol/L Normal 3.7-5.3 [facility] Comment on above: Performed By: #### T ROPI, LACTIC, CMPX, CBC #### [facility] [address] [place] [address] [phone] Car Record Clerk: Tavon Nicole MD Protein [Mass/Vol] 6.0 g/dL Low 6.4-8.3 [facility] Comment on above: Performed By: #### T ROPI, LACTIC, CMPX, CBC #### [facility] [address] [place] [address] [phone] Car Record Clerk: Tavon Nicole MD Sodium [Moles/Vol] 139 mmol/L Normal 135-144 [facility] Comment on above: Performed By: #### T ROPI, LACTIC, CMPX, CBC #### [facility] [address] [place], [place] [phone] Car Record Clerk: Tavon Nicole MD Urea nitrogen [Mass/Vol] 10 mg/dL Normal 6-20 [facility] Comment on above: Performed By: #### T ROPI, LACTIC, CMPX, CBC #### [facility] [address] [place], [place] [phone] Car Record Clerk: Tavon Nicole MD Comprehensive Metabolic Pane l w/ Reflex to MGon 10-19-2021 Albumin [Mass/Vol] 3.5 g/dL 3.5 - 5.2 g/dL [facility] Albumin/Globulin [Mass ratio] 1.4 {ratio} 1 - 2.5 [facility] ALP (Bld) [Catalytic activity/Vol] 69 U/L 35 - 104 U/L [facility] ALT [Catalytic activity/Vol] 15 U/L 5 - 33 U/L [facility] Anion gap [Moles/Vol] 13 mmol/L 9 - 17 mmol/L [facility] AST [Catalytic activity/Vol] 12 U/L NINF - 32 U/L [facility] Bilirubin [Mass/Vol] 0.24 mg/dL Low 0.3 - 1 .2 mg/dL [facility] Calcium [Mass/Vol] 8.1 mg/dL Low 8.6 - 10. 4 mg/dL [facility] Chloride [Moles/Vol] 107 mmol/L 98 - 10 7 mmol/L [facility] CO2 [Moles/Vol] 19 mmol/L Low 20 - 31 mmol/L [facility] Creatinine [Mass/Vol] 0.53 mg/dL 0.5 - 0.9 mg/dL [facility] Free PSA/Total PSA [Mass fraction] 6.0 g/dL Low 6.4 - 8.3 g/dL [facility] GFR >60 60 - PI NF mL/min [facility] GFR Non- >60 60 - PINF mL/min [facility] GFR/1.73 sq M.predicted MDRD (S/P/Bld) [Vol rate/Area] [facility] Comment on above: Average GFR for 20-2 9 years old: 116 mL/min/1.73sq m Chronic Kidney Disease: <60 mL/min/1.73sq m Kidney failure: <15 mL/min/1.73sq m eGFR calculated using average adult body mass. Additional eGFR calculator available at: http://www.Heap/multiple_crcl_2011.htm Glucose [Mass/Vol] 81 mg/dL 70 - 99 mg/dL [facility] Interpretation and review of laboratory results Abnormal [facility] Potassium [Moles/Vol] 3.9 mmol/L 3.7 - 5.3 mmol/L [facility] Sodium [Moles/Vol] 139 mmol/L 135 - 144 mmol/L [facility] Urea nitrogen (BldV) [Mass/Vol] 10 mg/dL 6 - 20 mg/dL [facility]22 SARS-CoV-2 (COVID-19) RNA SAURABH+probe Ql (Unsp spec) Not detected Normal NOT DETECTED [facility] Comment on above: Result Comment: When diagnostic [...] for this test is supported by the Certified Ophthalmic Technologist of Health and Human Service's declaration that [...] used). Performed By: #### C VDTB #### [facility] [address] [place] [address] Dr. Ibis Jimenez DRUG SCREEN RAPID (URINE)on 10-19-2021 AMP Negative Normal NEGATIVE [facility] Comment on above: Performed By: #### B MP #### [facility] [address] [place] [address] Dr. Ibis Jimenez BAR Positive Abnormal NEGATIVE [facility] Comment on above: Performed By: #### B MP #### [facility] [address] [place] [address] Dr. Ibis Jimenez BUP Negative Normal NEGATIVE [facility] Comment on above: Performed By: #### B MP #### [facility] [address] [place] [address] Dr. Ibis Jimenez BZO Positive Abnormal NEGATIVE [facility] Comment on above: Performed By: #### B MP #### [facility] [address] [place] [address] Dr. Ibis Jimenez SEMAJ Negative Normal NEGATIVE [facility] Comment on above: Performed By: #### B MP #### [facility] [address] [place] [address] Dr. Ibis Jimenez CUT-OFFS SEE BELOW Normal [facility] Comment on above: Result Comment: AMP (Amphetamine): 500ng/mL, BAR (Barbituates): 200 ng/mL, BZO (Benzodiazepines): 150 ng/mL, BUP (Buprenorphine): 10 ng/mL, SEMAJ (Cocaine): 150 ng/mL, mAMP (Methamphetamine): 500 ng/mL, MTD (Methadone): 200 ng/mL, OPI (Opiates): 100 ng/mL, OXY (Oxycodone): 100 ng/mL, PCP (Phencyclidine): 25 ng/mL, PPX (Propoxyphene): 300 ng/mL, THC (Cannabinoids): 50 ng/mL, TCA (Trycyclic Antidepressants): 300 ng/mL Performed By: #### B MP #### [facility] [address] [place] [address] Dr. Ibis Jimenez DRUG CUT HEADER DRUG CLASS TEST SYSTEM CUT-OFF CONCENTRATIONS ARE FOLLOWS: Normal [facility] Comment on above: Performed By: #### B MP #### [facility] [address] [place] [address] Dr. Ibis Jimenez mAMP Negative Normal NEGATIVE [facility] Comment on above: Performed By: #### B MP #### [facility] [address] [place] [address] Dr. Ibis Jimenez MTD Negative Normal NEGATIVE [facility] Comment on above: Performed By: #### B MP #### [facility] [address] [place] [address] Dr. Ibis Jimenez OPI Positive Abnormal NEGATIVE [facility] Comment on above: Performed By: #### B MP #### [facility] [address] [place] [address] Dr. Ibis Jimenez OXY Positive Abnormal NEGATIVE [facility] Comment on above: Performed By: #### B MP #### [facility] [address] [place] [address] Dr. Ibis Jimenez PCP Negative Normal NEGATIVE [facility] Comment on above: Performed By: #### B MP #### [facility] [address] [place] [address] Dr. Ibis Jimenez PPX Negative Normal NEGATIVE [facility] Comment on above: Performed By: #### B MP #### [facility] [address] [place] [address] Dr. Ibis Jimenez TCA Negative Normal NEGATIVE [facility] Comment on above: Performed By: #### B MP #### [facility] [address] [place] [address] Dr. Ibis Jimenez THC Negative Normal NEGATIVE [facility] Comment on above: Performed By: #### B MP #### [facility] [address] [place] [address] Dr. Ibis Jimenez ER URINE PROFILEon 2 Bilirubin Ql (U) Negative Normal NEGATIVE [facility] Comment on above: Performed By: #### B MP #### [facility] [address] [place] [address] Dr. Ibis Jimenez Clarity (U) CLEAR Normal CLEAR [facility] Comment on above: Performed By: #### B MP #### [facility] [address] [place] [address] Dr. Ibis Jimenez Color (U) YELLOW Normal YELLOW [facility] Comment on above: Performed By: #### B MP #### [facility] [address] [place] [address] Dr. Ibis Jimenez ERUAHD A micrscopic examination will be performed if indicated. Normal [facility] Comment on above: Performed By: #### B MP #### [facility] [address] [place] [address] Dr. Ibis Jimenez Glucose Ql (U) Negative Normal NEGATIVE [facility] Comment on above: Performed By: #### B MP #### [facility] [address] [place] [address] Dr. Ibis Jimenez Hemoglobin Ql (U) TRACE-INTACT Abnormal NEGATIVE [facility] Comment on above: Performed By: #### B MP #### [facility] [address] [place] [address] Dr. Ibis Jimenez Ketones Ql (U) Negative Normal NEGATIVE [facility] Comment on above: Performed By: #### B MP #### [facility] [address] [place] [address] Dr. Ibis Jimenez LEUKOCYTES Negative Normal NEGATIVE [facility] Comment on above: Performed By: #### B MP #### [facility] [address] [place] [address] Dr. Ibis Jimenez Nitrite Ql (U) Negative Normal NEGATIVE [facility] Comment on above: Performed By: #### B MP #### [facility] [address] [place] [address] Dr. Ibis Jimenez pH (U) 5.5 [pH] Normal 5-9 [facility] Comment on above: Performed By: #### B MP #### [facility] [address] [place] [address] Dr. Ibis Jimenez SPEC GRAVITY >=1.030 Abnormal 1.005-<=1.02 5 [facility] Comment on above: Performed By: #### B MP #### [facility] [address] [place] [address] Dr. Ibis Jimenez UA PROTEIN Negative Normal NEGATIVE/ TRACE [facility] Comment on above: Performed By: #### B MP #### [facility] [address] [place] [address] Dr. Ibis Jimenez UR MICRO IND INDICATED Normal [facility] Comment on above: Performed By: #### B MP #### [facility] [address] [place] [address] Dr. Ibis Jimenez Urobilinogen Qn (U) 0.2 {Dinorah'U}/dL Normal 0.2 - 1. 0 [facility] Comment on above: Performed By: #### B MP #### [facility] [address] [place] [address] Dr. Ibis Jimenez LACTATE/LACTIC ACIDon 2021 Lactate [Moles/Vol] 1.2 mmol/L Normal 0.4-1.9 [facility] Comment on above: Performed By: #### A MM #### [facility] [address] [place] [address] Dr. Ibis Jimenez Lactic Acidon 10-19-2021 Lactic Acid,Whole Bl 0.9 mmol/L Normal 0.7-2.1 [facility] Comment on above: Performed By: #### T ROPI, LACTIC, CMPX, CBC #### [facility] [place] [address] Car Record Clerk: Tavon Nicole MD Lactic Acid, Whole Blood 0.9 mmol/L 0.7 - 2.1 mmol/L [facility] MONOon 10-19-2021 Monocytes (Bld) [#/Vol] Negative Normal NEGATIVE [facility] Comment on above: Performed By: #### M DAVID #### [facility] [address] [place] [address] Dr. Ibis Jimenez MRI BRAIN W WO [...] Carlos Marks DO 10/19/21 Final result Normal [facility] Unremarkable MR brain. [facility] RIS CONSOLIDATED EXAMINATION: MRI OF THE BRAIN [...] The soft tissues demonstrate no acute abnormality. [facility] Carlos Marks DO - 10/19/2021 EXAMINATION: [...] no acute abnormality. IMPRESSION: Unremarkable MR brain. [employer] Phone: Radiology Study observation (narrative) [employer] Phone: MRI BRAIN W WO CONTRASTOrder ed By: Carlos Marks on 10-19-2021 [employer] Phone: PH VENOUS BLOODon 10-19-2021 PCO2 VENOUS 36.6 mmHg Critically low 40.0-52.0 [facility] Comment on above: Performed By: #### B MP #### [facility] [address] [address] [address] Ibis Jimenez pH VENOUS 7.387 Normal 7.330-7.430 [facility] Comment on above: Performed By: #### B MP #### [facility] [address] [place] [address] Dr. Ibis Jimenez PROF CHEM 8 (BAS METB)on Anion gap [Moles/Vol] 11.9 mmol/L Normal [facility] Comment on above: Performed By: #### M DAVID #### [facility] [address] [place] [address] Dr. Ibis Jimenez Calcium [Mass/Vol] 9.1 mg/dL Normal 8.5-10.1 [facility] Comment on above: Performed By: #### M DAVID #### [facility] [address] [place] [address] Dr. Ibis Jimenez Chloride [Moles/Vol] 104 mmol/L Normal 98-107 [facility] Comment on above: Performed By: #### M DAVID #### [facility] [address] [place] [address] Dr. Ibis Jimenez CO2 [Moles/Vol] 26.7 mmol/L Normal 21.0-32.0 [facility] Comment on above: Performed By: #### M DAVID #### [facility] [address] [place] [address] Dr. Ibis Jimenez Creatinine [Mass/Vol] 0.78 mg/dL Normal 0.55-1.02 [facility] Comment on above: Performed By: #### M DAVID #### [facility] [address] [place] [address] Dr. Ibis Jimenez EGFR-AF TUVALUAN >60 Normal >=60 [facility] Comment on above: Performed By: #### M DAVID #### [facility] [address] [place] [address] Dr. Ibis Jimenez EGFR-NON AF TUVALUAN >60 Normal >=60 [facility] Comment on above: Performed By: #### M DAVID #### [facility] [address] [place] [address] Dr. Ibis Jimenez Glucose [Mass/Vol] 96 mg/dL Normal 74-106 [facility] Comment on above: Performed By: #### M DAVID #### [facility] [address] [address] [address] Ibis Jimenez Potassium [Moles/Vol] 3.6 mmol/L Normal 3.5-5.1 [facility] Comment on above: Performed By: #### M DAVID #### [facility] [address] [address] [address] Ibis Jimenez Sodium [Moles/Vol] 139 mmol/L Normal 136-145 [facility] Comment on above: Performed By: #### M DAVID #### [facility] [address] [address] [address] Ibis Jimenez Urea nitrogen [Mass/Vol] 14.0 mg/dL Normal 7.0-18.0 [facility] Comment on above: Performed By: #### M DAVID #### [facility] [address] [address] [address] Ibis Jimenez Urea nitrogen/Creatinine [Mass ratio] 17.9 mg/mg Normal [facility] Comment on above: Performed By: #### M DAVID #### [facility] [address] [address] [address] Ibis Jimenez TSHon 10-19-2021 TSH 1.389 uIU/mL Normal 0.358-3.740 [facility] Comment on above: Performed By: #### A CET, SALYC #### [facility] [address] [address] [address] Ibis Jimenez Troponinon 10-19-2021 Troponin, High Sens <6 Normal 0-14 [facility] Comment on above: Result Comment: High Sensitivity Troponin values cannot be compared with other Troponin methodologies. Patients with high levels of Biotin oral intake (i.e >5mg/day) may have falsely decreased Troponin levels. Samples collected within 8 hours of biotin intake may require additional information for diagnosis. Performed By: #### T ROPI, LACTIC, CMPX, CBC #### [facility] [id number] Car Record Clerk: Tavon Nicole MD Troponin, High Sensitivity ng/L 0 - 14 ng/L [facility] Comment on above: High Sensitivity Troponin values cannot be compared with other Troponin methodologies. Patients with high levels of Biotin oral intake (i.e >5mg/day) may have falsely decreased Troponin levels. Samples collected within 8 hours of biotin intake may require additional information for diagnosis. [facility] URINE MICROSCOPIC ONLYon BACTERIA TRACE Abnormal NONE SEEN The [facility] Comment on above: Performed By: #### B MP #### [facility] [address] [place] [address] Dr. Ibis Jimenez Bacteria identified Cx Nom (U) NOT INDICATED Normal [facility] Comment on above: Performed By: #### B MP #### [facility] [address] [place] [address] Dr. Ibis Jimenez CAST NONE SEEN Normal NONE SEEN [facility] Comment on above: Performed By: #### B MP #### [facility] [address] [place] [address] Dr. Ibis Jimenez Crystals LM Nom (Urine sed) NONE SEEN Normal NONE SEEN [facility] Comment on above: Performed By: #### B MP #### [facility] [address] [place] [address] Dr. Ibis Jimenez Epithelial cells LM Ql (Urine sed) RARE Normal NONE SEEN /RARE [facility] Comment on above: Performed By: #### B MP #### [facility] [address] [place] [address] Dr. Ibis Jimenez MUCOUS LARGE Abnormal NONE SEEN The [facility] Comment on above: Performed By: #### B MP #### [facility] [address] [place] [address] Dr. Ibis Jimenez RBC 2-5 Abnormal 0-2 [facility] Comment on above: Performed By: #### B MP #### [facility] [address] [place] [address] Dr. Ibis Jimenez WBC 0-2 Abnormal NONE SEEN [facility] Comment on above: Performed By: #### B MP #### [facility] [address] [place] [address] ABD/PELVIS WO CONon [...] JASS LAURENT Date: 2021-10-06 20:08 Normal [facility] ER URINE PROFILEon 2 Bilirubin Ql (U) Negative Normal NEGATIVE The [facility] Comment on above: Performed By: #### M DAVID #### [facility] [address] [place], [place] [address] Dr. Ibis Jimenez Clarity (U) CLEAR Normal CLEAR [facility] Comment on above: Performed By: #### M DAVID #### [facility] [address] [place], [place] [address] Dr. Ibis Jimenez Color (U) LT. YELLOW Normal YELLOW [facility] Comment on above: Performed By: #### M DAVID #### [facility] [address] [address] [address] Ibis RODRIGUEZ A micrscopic examination will be performed if indicated. Normal [facility] Comment on above: Performed By: #### M DAVID #### [facility] [address] [address] [address] Ibis Jimenez Glucose Ql (U) Negative Normal NEGATIVE [facility] Comment on above: Performed By: #### M DAVID #### [facility] [address] [address] [address] Ibis Jimenez Hemoglobin Ql (U) Negative Normal NEGATIVE [facility] Comment on above: Performed By: #### M DAVID #### [facility] [address] [place] [address] Dr. Ibis Jimenez Ketones Ql (U) Negative Normal NEGATIVE [facility] Comment on above: Performed By: #### M DAVID #### [facility] [address] [address] [address] Ibis Jimenez LEUKOCYTES Negative Normal NEGATIVE [facility] Comment on above: Performed By: #### M DAVID #### [facility] [address] [address] [address] Ibis Jimenez Nitrite Ql (U) Negative Normal NEGATIVE [facility] Comment on above: Performed By: #### M DAVID #### [facility] [address] [address] [address] Ibis Jimenez pH (U) 8.0 [pH] Normal 5-9 [facility] Comment on above: Performed By: #### M DAVID #### [facility] [address] [address] [address] Ibis Jimenez SPEC GRAVITY 1.010 Normal 1.005-<=1.02 5 [facility] Comment on above: Performed By: #### M DAVID #### [facility] [address] [place] [address] Dr. Ibis Jimenez UA PROTEIN Negative Normal NEGATIVE/ TRACE [facility] Comment on above: Performed By: #### M DAVID #### [facility] [address] [address] [address] Ibis Jimenez UR MICRO IND NOT INDICATED Normal [facility] Comment on above: Performed By: #### M DAVID #### [facility] [address] [address] [address] Ibis Jimenez Urobilinogen Qn (U) 0.2 {Dinorah'U}/dL Normal 0.2 - 1. 0 [facility] Comment on above: Performed By: #### M DAVID #### [facility] [address] [address] [address] Ibis Jimenez ER URINE PROFILEon 2 Bilirubin Ql (U) Negative Normal NEGATIVE [facility] Comment on above: Performed By: #### C VDTBH #### [facility] [address] [place] [address] Dr. Ibis Jimenez Clarity (U) CLEAR Normal CLEAR [facility] Comment on above: Performed By: #### C VDTBH #### [facility] [address] [place] [address] Dr. Ibis Jimenez Color (U) YELLOW Normal YELLOW [facility] Comment on above: Performed By: #### C VDTBH #### [facility] [address] [place] [address] Dr. Ibis RODRIGUEZ A micrscopic examination will be performed if indicated. Normal [facility] Comment on above: Performed By: #### C VDTBH #### [facility] [address] [place] [address] Dr. Ibis Jimenez Glucose Ql (U) Negative Normal NEGATIVE [facility] Comment on above: Performed By: #### C VDTBH #### [facility] [address] [place] [address] Dr. Ibis Jimenez Hemoglobin Ql (U) Negative Normal NEGATIVE The [facility] Comment on above: Performed By: #### C VDTBH #### [facility] [address] [place] [address] Dr. Ibis Jimenez Ketones Ql (U) Negative Normal NEGATIVE [facility] Comment on above: Performed By: #### C VDTBH #### [facility] [address] [place] [address] Dr. Ibis Jimenez LEUKOCYTES Negative Normal NEGATIVE [facility] Comment on above: Performed By: #### C VDTBH #### [facility] [address] [place] [address] Dr. Ibis Jimenez Nitrite Ql (U) Negative Normal NEGATIVE [facility] Comment on above: Performed By: #### C VDTBH #### [facility] [address] [place] [address] Dr. Ibis Jimenez pH (U) 6.0 [pH] Normal 5-9 [facility] Comment on above: Performed By: #### C VDTBH #### [facility] [address] [place] [address] Dr. Ibis Jimenez SPEC GRAVITY 1.025 Normal 1.005-<=1.02 5 [facility] Comment on above: Performed By: #### C VDTBH #### [facility] [address] [place] [address] Dr. Ibis Jimenez UA PROTEIN Negative Normal NEGATIVE/ TRACE [facility] Comment on above: Performed By: #### C VDTBH #### [facility] [address] [place] [address] Dr. Ibis Jimenez UR MICRO IND NOT INDICATED Normal [facility] Comment on above: Performed By: #### C VDTBH #### [facility] [address] [place] [address] Dr. Ibis Jimenez Urobilinogen Qn (U) 0.2 {Dinorah'U}/dL Normal 0.2 - 1. 0 [facility] Comment on above: Performed By: #### C VDTBH #### [facility] [address] [place] [address] Dr. Ibis Jimenez CBC AUTO DIFFon 10-03-2021 BASO # 0.0 103/ul Normal 0.0-0.1 [facility] Comment on above: Performed By: #### B MP #### [facility] [address] [place] [address] Dr. Ibis Jimenez Basophils/100 WBC (Bld) 0.3 % Normal 0.2-2.0 [facility] Comment on above: Performed By: #### B MP #### [facility] [address] [place] [address] Dr. Ibis Jimenez EO # 0.3 103/ul Normal 0.0-0.7 [facility] Comment on above: Performed By: #### B MP #### [facility] [address] [place] [address] Dr. Ibis Jiemnez Eosinophils/100 WBC (Bld) 4.1 % Normal 0.9-7.0 [facility] Comment on above: Performed By: #### B MP #### [facility] [address] [place] [address] Dr. Ibis Jimenez Erythrocyte distribution width (RBC) [Ratio] 13.2 % Normal 11.0-15.0 [facility] Comment on above: Performed By: #### B MP #### [facility] [address] [place] [address] Dr. Ibis Jimenez Hematocrit (Bld) [Volume fraction] 35.7 % Critically low 36.0-48.0 [facility] Comment on above: Performed By: #### B MP #### [facility] [address] [place] [address] Dr. Ibis Jimenez Hemoglobin (Bld) [Mass/Vol] 11.6 g/dL Critically low 12.0-16.0 [facility] Comment on above: Performed By: #### B MP #### [facility] [address] [place] [address] Dr. Ibis Jimenez IG # 0.02 10e3/ul Normal 0.00-0.03 [facility] Comment on above: Performed By: #### B MP #### [facility] [address] [place] [address] Dr. Ibis Jimenez IG % 0.3 % Normal 0.0-0.5 [facility] Comment on above: Performed By: #### B MP #### [facility] [address] [place] [address] Dr. Ibis Jimenez LYMPH # 1.5 103/ul Normal 1.2-3.8 [facility] Comment on above: Performed By: #### B MP #### [facility] [address] [place] [address] Dr. Ibis Jimenez Lymphocytes/100 WBC (Bld) 24.3 % Normal 20.5-60.0 [facility] Comment on above: Performed By: #### B MP #### [facility] [address] [place] [address] Dr. Ibis Jimenez MANUAL DIFF REQ NO Normal [facility] Comment on above: Performed By: #### B MP #### [facility] [address] [place] [address] Dr. Ibis Jimenez MCH (RBC) [Entitic mass] 28.9 pg Normal 26.7-34.0 [facility] Comment on above: Performed By: #### B MP #### [facility] [address] [place] [address] Dr. Ibis Jimenez MCHC (RBC) [Mass/Vol] 32.5 g/dL Normal 29.9-35.2 [facility] Comment on above: Performed By: #### B MP #### [facility] [address] [place] [address] Dr. Ibis Jimenez MCV (RBC) [Entitic vol] 89.0 fL Normal 81.0-99.0 [facility] Comment on above: Performed By: #### B MP #### [facility] [address] [place] [address] Dr. Ibis Jimenez MONO # 0.5 103/ul Normal 0.3-0.8 [facility] Comment on above: Performed By: #### B MP #### [facility] [address] [place] [address] Dr. Ibis Jimenez Monocytes/100 WBC (Bld) 7.3 % Normal 1.7-12.0 [facility] Comment on above: Performed By: #### B MP #### [facility] [address] [place] [address] Dr. Ibis Jimenez NEUT # 4.0 103/ul Normal 1.4-6.5 [facility] Comment on above: Performed By: #### B MP #### [facility] [address] [place] [address] Dr. Ibis Jimenez Neutrophils/100 WBC (Bld) 63.7 % Normal 43.0-75.0 [facility] Comment on above: Performed By: #### B MP #### [facility] [address] [place] [address] Dr. Ibis Jimenez Platelet mean volume (Bld) [Entitic vol] 9.7 fL Normal 9.5-13.5 [facility] Comment on above: Performed By: #### B MP #### [facility] [address] [place] [address] Dr. Ibis Jimenez PLT 237 103/ul Normal 150-450 [facility] Comment on above: Performed By: #### B MP #### [facility] [address] [place] [address] Dr. Ibis Jimenez RBC 4.01 106/ul Critically low 4.20-5.40 [facility] Comment on above: Performed By: #### B MP #### [facility] [address] [place] [address] Dr. Ibis Jimenez WBC 6.3 103/ul Normal 4.0-11.0 [facility] Comment on above: Performed By: #### B MP #### [facility] [address] [place] [address] Dr. Ibis Jimenez LACTATE/LACTIC ACIDon 2021 Lactate [Moles/Vol] 1.2 mmol/L Normal 0.4-1.9 [facility] Comment on above: Performed By: #### A MM #### [facility] [address] [place] [address] Dr. Ibis Jimenez BUNshira 10-02-2021 Urea nitrogen [Mass/Vol] 7.0 mg/dL Normal 7.0-18.0 [facility] Comment on above: Performed By: #### C VDTB #### [facility] [address] [place] [address] Dr. Ibis Jimenez CBC AUTO DIFFon 10-02-2021 BASO # 0.0 103/ul Normal 0.0-0.1 [facility] Comment on above: Performed By: #### A MM #### [facility] [address] [place] [address] Dr. Ibis Jimenez Basophils/100 WBC (Bld) 0.2 % Normal 0.2-2.0 [facility] Comment on above: Performed By: #### A MM #### [facility] [address] [place] [address] Dr. Ibis Jimenez EO # 0.0 103/ul Normal 0.0-0.7 [facility] Comment on above: Performed By: #### A MM #### [facility] [address] [place] [address] Dr. Ibis Jimenez Eosinophils/100 WBC (Bld) 0.3 % Critically low 0.9-7.0 [facility] Comment on above: Performed By: #### A MM #### [facility] [address] [place] [address] Dr. Ibis Jimenez Erythrocyte distribution width (RBC) [Ratio] 12.7 % Normal 11.0-15.0 [facility] Comment on above: Performed By: #### A MM #### [facility] [address] [place] [address] Dr. Ibis Jimenez Hematocrit (Bld) [Volume fraction] 43.4 % Normal 36.0-48.0 [facility] Comment on above: Performed By: #### A MM #### [facility] [address] [place] [address] Dr. Ibis Jimenez Hemoglobin (Bld) [Mass/Vol] 14.6 g/dL Normal 12.0-16.0 [facility] Comment on above: Performed By: #### A MM #### [facility] [address] [place] [address] Dr. Ibis Jimenez IG # 0.03 10e3/ul Normal 0.00-0.03 [facility] Comment on above: Performed By: #### A MM #### [facility] [address] [place] [address] Dr. Ibis Jimenez IG % 0.3 % Normal 0.0-0.5 [facility] Comment on above: Performed By: #### A MM #### [facility] [address] [place] [address] Dr. Ibis Jimenez LYMPH # 1.2 103/ul Normal 1.2-3.8 [facility] Comment on above: Performed By: #### A MM #### [facility] [address] [place] [address] Dr. Ibis Jimenez Lymphocytes/100 WBC (Bld) 11.6 % Critically low 20.5-60.0 [facility] Comment on above: Performed By: #### A MM #### [facility] [address] [place] [address] Dr. Ibis Jimenez MANUAL DIFF REQ NO Normal [facility] Comment on above: Performed By: #### A MM #### [facility] [address] [place] [address] Dr. Ibis Jimenez MCH (RBC) [Entitic mass] 28.5 pg Normal 26.7-34.0 [facility] Comment on above: Performed By: #### A MM #### [facility] [address] [place] [address] Dr. Ibis Jimenez MCHC (RBC) [Mass/Vol] 33.6 g/dL Normal 29.9-35.2 [facility] Comment on above: Performed By: #### A MM #### [facility] [address] [place] [address] Dr. Ibis Jimenez MCV (RBC) [Entitic vol] 84.6 fL Normal 81.0-99.0 [facility] Comment on above: Performed By: #### A MM #### [facility] [address] [place] [address] Dr. Ibis Jimenez MONO # 0.6 103/ul Normal 0.3-0.8 [facility] Comment on above: Performed By: #### A MM #### [facility] [address] [place] [address] Dr. Ibis Jimenez Monocytes/100 WBC (Bld) 5.9 % Normal 1.7-12.0 [facility] Comment on above: Performed By: #### A MM #### [facility] [address] [place] [address] Dr. Ibis Jimenez NEUT # 8.2 103/ul Critically high 1.4-6.5 [facility] Comment on above: Performed By: #### A MM #### [facility] [address] [place] [address] Dr. Ibis Jimenez Neutrophils/100 WBC (Bld) 81.7 % Critically high 43.0-75.0 [facility] Comment on above: Performed By: #### A MM #### [facility] [address] [place] [address] Dr. Ibis Jimenez Platelet mean volume (Bld) [Entitic vol] 9.8 fL Normal 9.5-13.5 [facility] Comment on above: Performed By: #### A MM #### [facility] [address] [place] [address] Dr. Ibis Jimenez PLT 264 103/ul Normal 150-450 [facility] Comment on above: Performed By: #### A MM #### [facility] [address] [place] [address] Dr. Ibis Jimenez RBC 5.13 106/ul Normal 4.20-5.40 [facility] Comment on above: Performed By: #### A MM #### [facility] [address] [place] [address] Dr. Ibis Jimenez WBC 10.1 103/ul Normal 4.0-11.0 [facility] Comment on above: Performed By: #### A MM #### [facility] [address] [place] [address] Dr. Ibis Jimenez CREATININEon 10-02-2021 Creatinine [Mass/Vol] 0.69 mg/dL Normal 0.55-1.02 [facility] Comment on above: Performed By: #### C VDTBH #### [facility] [address] [place] [address] Dr. Ibis Jimenez EGFR-AF TUVALUAN >60 Normal >=60 [facility] Comment on above: Performed By: #### C VDTBH #### [facility] [address] [place] [address] Dr. Ibis Jimenez EGFR-NON AF TUVALUAN >60 Normal >=60 [facility] Comment on above: Performed By: #### C VDTBH #### [facility] [address] [place] [address] Dr. Ibis Jimenez CBC AUTO DIFFon 10-01-2021 BASO # 0.0 103/ul Normal 0.0-0.1 [facility] Comment on above: Performed By: #### A MM #### [facility] [address] [place] [address] Dr. Ibis Jimenez Basophils/100 WBC (Bld) 0.3 % Normal 0.2-2.0 [facility] Comment on above: Performed By: #### A MM #### [facility] [address] [place] [address] Dr. Ibis Jimenez EO # 0.1 103/ul Normal 0.0-0.7 [facility] Comment on above: Performed By: #### A MM #### [facility] [address] [place] [address] Dr. Ibis Jimenez Eosinophils/100 WBC (Bld) 1.9 % Normal 0.9-7.0 [facility] Comment on above: Performed By: #### A MM #### [facility] [address] [place] [address] Dr. Ibis Jimenez Erythrocyte distribution width (RBC) [Ratio] 12.7 % Normal 11.0-15.0 [facility] Comment on above: Performed By: #### A MM #### [facility] [address] [place] [address] Dr. Ibis Jimenez Hematocrit (Bld) [Volume fraction] 38.1 % Normal 36.0-48.0 [facility] Comment on above: Performed By: #### A MM #### [facility] [address] [place] [address] Dr. Ibis Jimenez Hemoglobin (Bld) [Mass/Vol] 12.7 g/dL Normal 12.0-16.0 [facility] Comment on above: Performed By: #### A MM #### [facility] [address] [place] [address] Dr. Ibis Jimenez IG # 0.02 10e3/ul Normal 0.00-0.03 [facility] Comment on above: Performed By: #### A MM #### [facility] [address] [place] [address] Dr. Ibsi Jimenez IG % 0.3 % Normal 0.0-0.5 [facility] Comment on above: Performed By: #### A MM #### [facility] [address] [place] [address] Dr. Ibis Jimenez LYMPH # 1.9 103/ul Normal 1.2-3.8 [facility] Comment on above: Performed By: #### A MM #### [facility] [address] [place] [address] Dr. Ibis Jimenez Lymphocytes/100 WBC (Bld) 30.5 % Normal 20.5-60.0 [facility] Comment on above: Performed By: #### A MM #### [facility] [address] [place] [address] Dr. Ibis Jimenez MANUAL DIFF REQ NO Normal [facility] Comment on above: Performed By: #### A MM #### [facility] [address] [place] [address] Dr. Ibis Jimenez MCH (RBC) [Entitic mass] 28.3 pg Normal 26.7-34.0 [facility] Comment on above: Performed By: #### A MM #### [facility] [address] [place] [address] Dr. Ibis Jimenez MCHC (RBC) [Mass/Vol] 33.3 g/dL Normal 29.9-35.2 [facility] Comment on above: Performed By: #### A MM #### [facility] [address] [place] [address] Dr. Ibis Jimenez MCV (RBC) [Entitic vol] 85.0 fL Normal 81.0-99.0 [facility] Comment on above: Performed By: #### A MM #### [facility] [address] [address] [address] Ibis Jimenez MONO # 0.3 103/ul Normal 0.3-0.8 [facility] Comment on above: Performed By: #### A MM #### [facility] [address] [place] [address] Dr. Ibis Jimenez Monocytes/100 WBC (Bld) 5.2 % Normal 1.7-12.0 [facility] Comment on above: Performed By: #### A MM #### [facility] [address] [place] [address] Dr. Ibis Jimenez NEUT # 3.9 103/ul Normal 1.4-6.5 [facility] Comment on above: Performed By: #### A MM #### [facility] [address] [place] [address] Dr. Ibis Jimenez Neutrophils/100 WBC (Bld) 61.8 % Normal 43.0-75.0 [facility] Comment on above: Performed By: #### A MM #### [facility] [address] [place] [address] Dr. Ibis Jimenez Platelet mean volume (Bld) [Entitic vol] 9.7 fL Normal 9.5-13.5 [facility] Comment on above: Performed By: #### A MM #### [facility] [address] [place] [address] Dr. Ibis Jimenez PLT 255 103/ul Normal 150-450 [facility] Comment on above: Performed By: #### A MM #### [facility] [address] [place] [address] Dr. Ibis Jimenez RBC 4.48 106/ul Normal 4.20-5.40 [facility] Comment on above: Performed By: #### A MM #### [facility] [address] [place] [address] Dr. Ibis Jimenez WBC 6.3 103/ul Normal 4.0-11.0 [facility] Comment on above: Performed By: #### A MM #### [facility] [address] [address] [address] Ibis Jimenez PREG HCG QUALon 10-01-2021 , QUAL Negative Normal NEGATIVE [facility] Comment on above: Performed By: #### M DAVID #### [facility] [address] [place] [address] Dr. Ibis Jimenez Covid-19 PCR (CVDTBH)on 09-20 SARS-CoV-2 (COVID-19) RNA SAURABH+probe Ql (Unsp spec) Not detected Normal NOT DETECTED [facility] Comment on above: Result Comment: This test is not yet approved or cleared by the [place] FDA. When there are no FDA-approved or cleared tests available, and other criteria are met, FDA can make tests available under an emergency access mechanism called an Emergency Use Authorization (EUA). The EUA for this test is supported by the [place] of Health and Human Service's (HHS's) declaration [...] SARS-CoV-2. Performed By: #### B MP #### [facility] [address] [place] [address] Dr. Ibis Jimenez TYPE AND SCREENon 09-29-2021 TYPE AND SCREEN Negative Normal [facility] Comment on above: Performed By: #### B MP #### [facility] [address] [place], [place] [id number] Dr. Ibis Jimenez Covid-19 PCR (CVDTBH)on SARS-CoV-2 (COVID-19) RNA SAURABH+probe Ql (Unsp spec) Not detected Normal NOT DETECTED [facility] Comment on above: Result Comment: This test is not yet approved or cleared by the [place] FDA. When there are no FDA-approved or cleared tests available, and other criteria are met, FDA can make tests available under an emergency access mechanism called an Emergency Use Authorization (EUA). The EUA for this test is supported by the [place] of Health and Human Service's (HHS's) declaration [...] SARS-CoV-2. Performed By: #### C VDTBH #### [facility] [address] [place] [address] Dr. Ibis Jimenez TYPE AND SCREENon 09-21-2021 TYPE AND SCREEN Negative Normal [facility] Comment on above: Performed By: #### B MP #### [facility] [address] [place] [address] Dr. Ibis Jimenez CHLAMYDIA/GONOCOCCUS SAURABH (SW AB/URINE/PAPon 08-17-2021 Chlamydia trachomatis, SAURABH Negative Normal Negative [facility] Comment on above: Performed By: #### A CET, SALYC #### [facility] [address] [place] [address] Dr. Ibis Jimenez Neisseria gonorrhoeae, SAURABH Negative Normal Negative [facility] Comment on above: Performed By: #### A CET, SALYC #### [facility] [address] [place] [address] Dr. Ibis Jimenez CBC AUTO DIFFon 08-14-2021 BASO # 0.0 103/ul Normal 0.0-0.1 [facility] Comment on above: Performed By: #### C VDTBH #### [facility] [address] [place] [address] Dr. Ibis Jimenez Basophils/100 WBC (Bld) 0.3 % Normal 0.2-2.0 [facility] Comment on above: Performed By: #### C VDTBH #### [facility] [address] [place] [address] Dr. Ibis Jimenez EO # 0.2 103/ul Normal 0.0-0.7 [facility] Comment on above: Performed By: #### C VDTBH #### [facility] [address] [place] [address] Dr. Ibis Jimenez Eosinophils/100 WBC (Bld) 2.5 % Normal 0.9-7.0 [facility] Comment on above: Performed By: #### C VDTBH #### [facility] [address] [place] [address] Dr. Ibis Jimenez Erythrocyte distribution width (RBC) [Ratio] 13.0 % Normal 11.0-15.0 [facility] Comment on above: Performed By: #### C VDTBH #### [facility] [address] [place] [address] Dr. Ibis Jimenez Hematocrit (Bld) [Volume fraction] 38.1 % Normal 36.0-48.0 [facility] Comment on above: Performed By: #### C VDTBH #### [facility] [address] [place] [address] Dr. Ibis Jimenez Hemoglobin (Bld) [Mass/Vol] 12.8 g/dL Normal 12.0-16.0 [facility] Comment on above: Performed By: #### C VDTBH #### [facility] [address] [place] [address] Dr. Ibis Jimenez IG # 0.02 10e3/ul Normal 0.00-0.03 [facility] Comment on above: Performed By: #### C VDTBH #### [facility] [address] [place] [address] Dr. Ibis Jimenez IG % 0.3 % Normal 0.0-0.5 [facility] Comment on above: Performed By: #### C VDTBH #### [facility] [address] [place] [address] Dr. Ibis Jimenez LYMPH # 1.5 103/ul Normal 1.2-3.8 [facility] Comment on above: Performed By: #### C VDTBH #### [facility] [address] [place] [address] Dr. Ibis Jimenez Lymphocytes/100 WBC (Bld) 22.5 % Normal 20.5-60.0 [facility] Comment on above: Performed By: #### C VDTBH #### [facility] [address] [place] [address] Dr. Ibis Jimenez MANUAL DIFF REQ NO Normal [facility] Comment on above: Performed By: #### C VDTBH #### [facility] [address] [place] [address] Dr. Ibis Jimenez MCH (RBC) [Entitic mass] 28.6 pg Normal 26.7-34.0 [facility] Comment on above: Performed By: #### C VDTBH #### [facility] [address] [place] [address] Dr. Ibis Jimenez MCHC (RBC) [Mass/Vol] 33.6 g/dL Normal 29.9-35.2 [facility] Comment on above: Performed By: #### C VDTBH #### [facility] [address] [place] [address] Dr. Ibis Jimenez MCV (RBC) [Entitic vol] 85.0 fL Normal 81.0-99.0 [facility] Comment on above: Performed By: #### C VDTBH #### [facility] [address] [place] [address] Dr. Ibis iJmenez MONO # 0.4 103/ul Normal 0.3-0.8 [facility] Comment on above: Performed By: #### C VDTBH #### [facility] [address] [place] [address] Dr. Ibis Jimenez Monocytes/100 WBC (Bld) 6.3 % Normal 1.7-12.0 [facility] Comment on above: Performed By: #### C VDTBH #### [facility] [address] [place] [address] Dr. Ibis Jimenez NEUT # 4.6 103/ul Normal 1.4-6.5 [facility] Comment on above: Performed By: #### C VDTBH #### [facility] [address] [place] [address] Dr. Ibis Jimenez Neutrophils/100 WBC (Bld) 68.1 % Normal 43.0-75.0 [facility] Comment on above: Performed By: #### C VDTBH #### [facility] [address] [place] [address] Dr. Ibis Jimenez Platelet mean volume (Bld) [Entitic vol] 9.8 fL Normal 9.5-13.5 [facility] Comment on above: Performed By: #### C VDTBH #### [facility] [address] [place] [address] Dr. Ibis Jimenez PLT 243 103/ul Normal 150-450 [facility] Comment on above: Performed By: #### C VDTBH #### [facility] [address] [place] [address] Dr. Ibis Jimenez RBC 4.48 106/ul Normal 4.20-5.40 [facility] Comment on above: Performed By: #### C VDTBH #### [facility] [address] [place] [address] Dr. Ibis Jimenez WBC 6.7 103/ul Normal 4.0-11.0 [facility] Comment on above: Performed By: #### C VDTBH #### [facility] [address] [place] [address] ABD/PELVIS WO CONon [...] NELI COTTO Date: 2021-08-14 18:00 Normal [facility] ER URINE PROFILEon 2 Bilirubin Ql (U) SMALL Abnormal NEGATIVE [facility] Comment on above: Performed By: #### B MP #### [facility] [address] [place] [address] Dr. Ibis Jimenez Clarity (U) CLEAR Normal CLEAR [facility] Comment on above: Performed By: #### B MP #### [facility] [address] [place] [address] Dr. Ibis Jimenez Color (U) YELLOW Normal YELLOW [facility] Comment on above: Performed By: #### B MP #### [facility] [address] [place] [address] Dr. Ibis Jimenez ERUSYLVAIN A micrscopic examination will be performed if indicated. Normal [facility] Comment on above: Performed By: #### B MP #### [facility] [address] [place] [address] Dr. Ibis Jimenez Glucose Ql (U) Negative Normal NEGATIVE [facility] Comment on above: Performed By: #### B MP #### [facility] [address] [place] [address] Dr. Ibis Jimenez Hemoglobin Ql (U) SMALL Abnormal NEGATIVE [facility] Comment on above: Performed By: #### B MP #### [facility] [address] [place] [address] Dr. Ibis Jimenez Ketones Ql (U) TRACE Abnormal NEGATIVE [facility] Comment on above: Performed By: #### B MP #### [facility] [address] [place] [address] Dr. Ibis Jimenez LEUKOCYTES Negative Normal NEGATIVE [facility] Comment on above: Performed By: #### B MP #### [facility] [address] [place] [address] Dr. Ibis Jimenez Nitrite Ql (U) Negative Normal NEGATIVE [facility] Comment on above: Performed By: #### B MP #### [facility] [address] [place] [address] Dr. Ibis Jimenez pH (U) 5.5 [pH] Normal 5-9 [facility] Comment on above: Performed By: #### B MP #### [facility] [address] [place] [address] Dr. Ibis Jimenez SPEC GRAVITY >=1.030 Abnormal 1.005-<=1.[address] [place] [address] Comment on above: Performed By: #### B MP #### [facility] [address] [place] [address] Dr. Ibis Jimenez UA PROTEIN TRACE Normal NEGATIVE/ TRACE [facility] Comment on above: Performed By: #### B MP #### [facility] [address] [place] [address] Dr. Ibis Jimenez UR MICRO IND INDICATED Normal [facility] Comment on above: Performed By: #### B MP #### [facility] [address] [place] [address] Dr. Ibis Jimenez Urobilinogen Qn (U) 1.0 {Dinorah'U}/dL Normal 0.2 - 1. 0 [facility] Comment on above: Performed By: #### B MP #### [facility] [address] [place] [address] Dr. Ibis Jimenez URon 08-14-2021 , QUAL Negative Normal NEGATIVE [facility] Comment on above: Performed By: #### B MP #### [facility] [address] [address] [address] Ibis Jimenez PROF CHEM 8 (BAS METB)on Anion gap [Moles/Vol] 15.3 mmol/L Normal [facility] Comment on above: Performed By: #### B MP #### [facility] [address] [place] [address] Dr. Ibis Jimenez Calcium [Mass/Vol] 8.4 mg/dL Critically low 8.5-10.1 [facility] Comment on above: Performed By: #### B MP #### [facility] [address] [place] [address] Dr. Ibis Jimenez Chloride [Moles/Vol] 106 mmol/L Normal 98-107 [facility] Comment on above: Performed By: #### B MP #### [facility] [address] [place] [address] Dr. Ibis Jimenez CO2 [Moles/Vol] 22.3 mmol/L Normal 21.0-32.0 [facility] Comment on above: Performed By: #### B MP #### [facility] [address] [place] [address] Dr. Ibis Jimenez Creatinine [Mass/Vol] 0.75 mg/dL Normal 0.55-1.02 [facility] Comment on above: Performed By: #### B MP #### [facility] [address] [place] [address] Dr. Ibis Jimenez EGFR-AF TUVALUAN >60 Normal >=60 [facility] Comment on above: Performed By: #### B MP #### [facility] [address] [place] [address] Dr. Ibis Jimenez EGFR-NON AF TUVALUAN >60 Normal >=60 [facility] Comment on above: Performed By: #### B MP #### [facility] [address] [place] [address] Dr. Ibis Jimenez Glucose [Mass/Vol] 107 mg/dL Critically high 74-106 [facility] Comment on above: Performed By: #### B MP #### [facility] [address] [address] [address] Ibis Jimenez Potassium [Moles/Vol] 3.6 mmol/L Normal 3.5-5.1 [facility] Comment on above: Performed By: #### B MP #### [facility] [address] [address] [address] Ibis Jimenez Sodium [Moles/Vol] 140 mmol/L Normal 136-145 [facility] Comment on above: Performed By: #### B MP #### [facility] [address] [address] [address] Ibis Jimenez Urea nitrogen [Mass/Vol] 13.0 mg/dL Normal 7.0-18.0 [facility] Comment on above: Performed By: #### B MP #### [facility] [address] [place] [address] Dr. Ibis Jimenez Urea nitrogen/Creatinine [Mass ratio] 17.3 mg/mg Normal [facility] Comment on above: Performed By: #### B MP #### [facility] [address] [place] [address] Dr. Ibis Jimenez URINE MICROSCOPIC ONLYon BACTERIA TRACE Abnormal NONE SEEN [facility] Comment on above: Performed By: #### B MP #### [facility] [address] [place] [address] Dr. Ibis Jimenez Bacteria identified Cx Nom (U) NOT INDICATED Normal [facility] Comment on above: Performed By: #### B MP #### [facility] [address] [place] [address] Dr. Ibis Jiemnez CAST NONE SEEN Normal NONE SEEN [facility] Comment on above: Performed By: #### B MP #### [facility] [address] [place] [address] Dr. Ibis Jimenez Crystals LM Nom (Urine sed) NONE SEEN Normal NONE SEEN [facility] Comment on above: Performed By: #### B MP #### [facility] [address] [place] [address] Dr. Ibis Jimenez Epithelial cells LM Ql (Urine sed) MANY Abnormal NONE SEEN /RARE [facility] Comment on above: Performed By: #### B MP #### [facility] [address] [address] [address] Ibis Jimenez MUCOUS SMALL Abnormal NONE SEEN [facility] Comment on above: Performed By: #### B MP #### [facility] [address] [place], [place] [address] Dr. Ibis Jimenez RBC 2-5 Abnormal 0-2 [facility] Comment on above: Performed By: #### B MP #### [facility] [address] [id number] Ibis Jimenez WBC 2-5 Abnormal NONE SEEN [facility] Comment on above: Performed By: #### B MP #### [facility] [id number] Ibis Jimenez CBC Auto DifferentialOrdered By: Keven Ching on 12-24-2020 [employer] # 0.44 [employer] [facility] Work Phone: Absolute Immature Granulocyte 0.05 [email or web address] Work Phone: Absolute Lymph # 2.48 [employer] [facility] Work Phone: [employer] [place] # 0.55 [facility] Work Phone: Basophils (Bld) [#/Vol] 10*3/uL [email or web address] Work Phone: Basophils/100 WBC (Bld) 0 % 0 - 2 % [email or web address] Work Phone: Differential Type NOT REPORTED [email or web address] Work Phone: Eosinophils/100 WBC (Bld) 5 % High 1 - 4 % [email or web address] Work Phone: Hematocrit (Bld) [Volume fraction] 37.4 % 36.3 - 47.1 % [email or web address] Work Phone: Hemoglobin.gastrointes tinal spec 1 Ql (Stl) 12.3 g/dL 11.9 - 15.1 g/dL [email or web address] Work Phone: Immature granulocytes/100 WBC (Bld) 1 % High 0 [facility] Phone: Interpretation and review of laboratory results Abnormal [facility] Phone: Lymphocytes/100 WBC (Bld) 30 % 24 - 43 % [facility] Phone: MCH (RBC) [Entitic mass] 28.5 pg 25.2 - 33.5 pg [facility] Phone: MCHC (RBC) [Mass/Vol] 32.9 g/dL 28.4 - 34.8 g/dL [facility] Phone: MCV (RBC) [Entitic vol] 86.8 fL 82.6 - 102.9 fL [facility] Phone: Monocytes/100 WBC (Bld) 7 % 3 - 12 % [facility] Phone: NRBC Automated 0.0 0.0 per 100 WBC [facility] Phone: Platelet distribution width (Bld) [Ratio] 12.7 % 11.8 - 14.4 % [facility] Phone: Platelet Estimate NOT REPORTED [facility] Phone: Platelet mean volume (Bld) [Entitic vol] 9.4 fL 8.1 - 13.5 fL [facility] Phone: Platelets (Bld) [#/Vol] 252 10*3/uL [facility] Phone: RBC (Bld) [#/Vol] 4.31 10*6/uL 3.95 - 5.1 1 m/uL [facility] Phone: RBC (Bld) [#/Vol] NOT REPORTED [facility] Phone: Segmented neutrophils/100 WBC (Bld) 57 % 36 - 65 % [facility] Phone: Segs Absolute 4.78 [employer] Work Phone: WBC (Bld) [#/Vol] 8.3 10*3/uL [facility] Work Phone: WBC (Bld) [#/Vol] NOT REPORTED [facility] Work Phone: [facility] Work Phone: CBC with Diffon 12-24-2020 Abs. Basophil <0.03 Normal 0.00-0.20 [facility] Comment on above: Performed By: #### C MPX, CDP #### [address] [place] [address] Car Record Clerk: Souleymane Pineda MD Abs.Imm.Granulocyte 0.05 k/uL Normal 0.00-0.30 [facility] Comment on above: Performed By: #### C MPX, CDP #### [address] [place], [place] [id number] Car Record Clerk: Souleymane Pineda MD Abs.Neutrophil (Seg) 4.78 k/uL Normal 1.50-8.10 [facility] Comment on above: Performed By: #### C MPX, CDP #### [address] [place], [place] [id number] Car Record Clerk: Souleymane Pineda MD Basophils/100 WBC (Bld) 0 % Normal 0-2 [facility] Comment on above: Performed By: #### C MPX, CDP #### [address] [place], [place] [id number] Car Record Clerk: Souleymane Pineda MD Eosinophils (Bld) [#/Vol] 0.44 10*3/uL Normal 0.00-0.44 [facility] Comment on above: Performed By: #### C MPX, CDP #### [address] [place] [address] Car Record Clerk: Souleymane Pineda MD Eosinophils/100 WBC (Bld) 5 % High 1-4 [facility] Comment on above: Performed By: #### C MPX, CDP #### [facility] [address] [place], [place] [id number] Car Record Clerk: Souleymane Pineda MD Erythrocyte distribution width (RBC) [Ratio] 12.7 % Normal 11.8-14.4 [facility] Comment on above: Performed By: #### C MPX, CDP #### [facility] [address] [place], [place] [id number] Car Record Clerk: Souleymane Pineda MD Hematocrit (Bld) [Volume fraction] 37.4 % Normal 36.3-47.1 [facility] Comment on above: Performed By: #### C MPX, CDP #### [address] [place], [place] [id number] Car Record Clerk: Souleymane Pineda MD Hemoglobin (Bld) [Mass/Vol] 12.3 g/dL Normal 11.9-15.1 [facility] Comment on above: Performed By: #### C MPX, CDP #### [address] [place] [address] Car Record Clerk: Souleymane Pineda MD Immature granulocytes/100 WBC (Bld) 1 % High 0 [facility] Comment on above: Performed By: #### C MPX, CDP #### [facility] [address] [place] [address] Dr[address] [place], [place] [id number] Car Record Clerk: Souleymane Pineda MD Lymphocytes (Bld) [#/Vol] 2.48 10*3/uL Normal 1.10-3.70 [facility] Comment on above: Performed By: #### C MPX, CDP #### [facility] [address] [place] [address] Car Record Clerk: Souleymane Pineda MD Lymphocytes/100 WBC (Bld) 30 % Normal 24-43 [facility] Comment on above: Performed By: #### C MPX, CDP #### [facility] [address] [place], [place] [id number] Car Record Clerk: Souleymane Pineda MD MCH (RBC) [Entitic mass] 28.5 pg Normal 25.2-33.5 [facility] Comment on above: Performed By: #### C MPX, CDP #### [address] [place], [facility] Car Record Clerk: Souleymane Pineda MD MCHC (RBC) [Mass/Vol] 32.9 g/dL Normal 28.4-34.8 [facility] Comment on above: Performed By: #### C MPX, CDP #### [address] [place], [place] [id number] Car Record Clerk: Souleymane Pineda MD MCV (RBC) [Entitic vol] 86.8 fL Normal 82.6-102.9 [facility] Comment on above: Performed By: #### C MPX, CDP #### [address] [place], [place] [address]83 Car Record Clerk: Souleymane Pineda MD Monocytes (Bld) [#/Vol] 0.55 10*3/uL Normal 0.10-1.20 [facility] Comment on above: Performed By: #### C MPX, CDP #### [address] [place], [place] [address]383 Car Record Clerk: Souleymane Pineda MD Monocytes/100 WBC (Bld) 7 % Normal 3-12 [facility] Comment on above: Performed By: #### C MPX, CDP #### [address] [place] [address] Car Record Clerk: Souleymane Pineda MD Neutrophil (Seg) 57 % Normal 36-65 [facility] Comment on above: Performed By: #### C MPX, CDP #### [facility] [address] [place] [address] Car Record Clerk: Souleymane Pineda MD NRBC Automated 0.0 per 100 WBC Normal 0.0 [facility] Comment on above: Performed By: #### C MPX, CDP #### [facility] [address] [place], [place] [id number] Car Record Clerk: Souleymane Pineda MD Platelet mean volume (Bld) [Entitic vol] 9.4 fL Normal 8.1-13.5 [facility] Comment on above: Performed By: #### C MPX, CDP #### [facility] [address] [place], [place] [address]83 Car Record Clerk: Souleymane Pineda MD Platelets (Bld) [#/Vol] 252 10*3/uL Normal 138-453 [facility] Comment on above: Performed By: #### C MPX, CDP #### [facility] [address] [place], [place] [id number] Car Record Clerk: Souleymane Pineda MD RBC (Bld) [#/Vol] 4.31 10*6/uL Normal 3.95-5.11 [facility] Comment on above: Performed By: #### C MPX, CDP #### [facility] [address] [place] [address] Dr. [place], [place] [phone] Car Record Clerk: Souleymane Pineda MD WBC (Bld) [#/Vol] 8.3 10*3/uL Normal 3.5-11.3 [facility] Comment on above: Performed By: #### C MPX, CDP #### [facility] [address] [place], [place] [phone] Car Record Clerk: Souleymane Pineda MD Auto Diff Performed NOT REPORTED Normal [facility] Comment on above: Performed By: #### C MPX, CDP #### [facility] [address] [place], [place] [phone] Car Record Clerk: Souleymane Pineda MD Platelet Comment NOT REPORTED Normal [facility] Comment on above: Performed By: #### C MPX, CDP #### [facility] [address] [place] [address] Car Record Clerk: Souleymane Pineda MD RBC morphology finding Nom (Bld) NOT REPORTED Normal [facility] Comment on above: Performed By: #### C MPX, CDP #### [facility] [address] [place] [address] Car Record Clerk: Souleymane Pineda MD WBC Morphology NOT REPORTED Normal [facility] Comment on above: Performed By: #### C MPX, CDP #### [facility] [address] [place] [address] Car Record Clerk: Souleymane Pineda MD CT HEAD WO CONTRASTon [...] the orbits demonstrate no acute abnormality. SINUSES: Thdo-ev-hklzgfwk paranasal sinus mucosal thickening. SOFT TISSUES/SKULL: No acute abnormality of the visualized skull or soft tissues. IMPRESSION: No acute intracranial abnormality. Interpreted by: Edwin Bentley MD Signed by: Edwin Bentley MD 12/24/20 Final result Normal [facility] CT Head WO ContrastOrdered B y: Keven Joshua on 12-24-2020 No acute intracranial abnormality. [facility] Work Phone: EXAMINATION: CT OF [...] the orbits demonstrate no acute abnormality. SINUSES: Enqr-wr-zlvcqhiy paranasal sinus mucosal thickening. SOFT TISSUES/SKULL: No acute abnormality of the visualized skull or soft tissues. [facility] Phone: Dimitri, [facility] Incoming Radiant Results From [employer] - 12/24/2020 8:49 PM EDT EXAMINATION: CT [...] the orbits demonstrate no acute abnormality. SINUSES: Gunb-fy-jmedxznm paranasal sinus mucosal thickening. SOFT TISSUES/SKULL: No acute abnormality of the visualized skull or soft tissues. IMPRESSION: No acute intracranial abnormality. [facility] Phone: [facility] Phone: Comp Metabolic Pr/rfx MGon 1 02-24-2020 Bilirubin [Mass/Vol] mg/dL Low 0.3-1.2 [facility] Comment on above: Performed By: #### C MPX, CDP #### [facility] [address] [place] [address] Dr[address] [place], [place] [id number] Car Record Clerk: Souleymane Pineda MD (cont.) Normal [facility] Comment on above: Result Comment: Aver age GFR for 20-29 years old: 116 mL/min/1.73sq m Chronic Kidney Disease: <60 mL/min/1.73sq m Kidney failure: <15 mL/min/1.73sq m eGFR calculated using average adult body mass. Additional eGFR calculator available at: http://www.[employer]/multiple_crcl_2012.htm Performed By: #### C MPX, CDP #### [facility] [address] [place] [address] Dr. [place], [place] [id number] Car Record Clerk: Souleymane Pineda MD Albumin [Mass/Vol] 4.0 g/dL Normal 3.5-5.2 [facility] Comment on above: Performed By: #### C MPX, CDP #### [facility] [address] [place] [address] Dr. [place], [place] 1580683 Car Record Clerk: Souleymane Pineda MD Albumin/Glob Ratio 1.5 Normal 1.0-2.5 [facility] Comment on above: Performed By: #### C MPX, CDP #### [facility] [address] [place], [place] [phone] Car Record Clerk: Souleymane Pineda MD Alkaline Phos 90 U/L Normal 35-104 [facility] Comment on above: Performed By: #### C MPX, CDP #### [facility] [address] [place] [address] Car Record Clerk: Souleymane Pineda MD ALT [Catalytic activity/Vol] 40 U/L High 5-33 [facility] Comment on above: Performed By: #### C MPX, CDP #### [facility] [address] [place], [place] 1967783 Car Record Clerk: Souleymane Pineda MD Anion gap [Moles/Vol] 11 mmol/L Normal 9-17 [facility] Comment on above: Performed By: #### C MPX, CDP #### [facility] [address] [place], [place] [phone] Car Record Clerk: Souleymane Pineda MD AST [Catalytic activity/Vol] 19 U/L Normal <32 [facility] Comment on above: Performed By: #### C MPX, CDP #### [facility] [address] [place], [place] [phone] Car Record Clerk: Souleymane Pineda MD BUN/CRE Ratio 15 Normal 9-20 [facility] Comment on above: Performed By: #### C MPX, CDP #### [facility] [address] [place], [place] [address]83 Car Record Clerk: Souleymane Pineda MD Calcium [Mass/Vol] 8.9 mg/dL Normal 8.6-10.4 [facility] Comment on above: Performed By: #### C MPX, CDP #### [facility] [address] [place], [place] [address]83 Car Record Clerk: Souleymane Pineda MD Chloride [Moles/Vol] 104 mmol/L Normal 98-107 [facility] Comment on above: Performed By: #### C MPX, CDP #### [facility] [address] [place], [place] [phone] Car Record Clerk: Souleymane Pineda MD CO2 [Moles/Vol] 24 mmol/L Normal 20-31 [facility] Comment on above: Performed By: #### C MPX, CDP #### [facility] [address] [place], [place] [phone] Car Record Clerk: Souleymane Pineda MD Creatinine [Mass/Vol] 0.60 mg/dL Normal 0.50-0.90 [facility] Comment on above: Performed By: #### C MPX, CDP #### [facility] [address] [place], [place] 6703[address] Car Record Clerk: Souleymane Pineda MD GFR, Amer >60 Normal >60 [facility] Comment on above: Performed By: #### C MPX, CDP #### [facility] [address] [place], [place] [phone] Car Record Clerk: Souleymane Pineda MD GFR,non Amer >60 Normal >60 [facility] Comment on above: Performed By: #### C MPX, CDP #### [facility] [address] [place], [place] [phone] Car Record Clerk: Souleymane Pineda MD Glucose [Mass/Vol] 91 mg/dL Normal 70-99 [facility] Comment on above: Performed By: #### C MPX, CDP #### [facility] [address] [place], [place] [phone] Car Record Clerk: Souleymane Pineda MD Potassium [Moles/Vol] 4.0 mmol/L Normal 3.7-5.3 [facility] Comment on above: Performed By: #### C MPX, CDP #### [facility] [address] [place], [place] [phone] Car Record Clerk: Souleymane Pineda MD Protein [Mass/Vol] 6.7 g/dL Normal 6.4-8.3 [facility] Comment on above: Performed By: #### C MPX, CDP #### [facility] [address] [place], [place] [phone] Car Record Clerk: Souleymane Pineda MD Sodium [Moles/Vol] 139 mmol/L Normal 135-144 [facility] Comment on above: Performed By: #### C MPX, CDP #### [facility] [address] [place] [address] Car Record Clerk: Souleymane Pineda MD Staging: Normal [facility] Comment on above: Result Comment: Stag e 1: Some kidney damage normal GFR Stage 2: Mild kidney damage GFR 60-89 Stage 3: Moderate kidney damage GFR 30-59 Stage 4: Severe kidney damage GFR 15-29 Stage 5: Severe kidney damage GFR <15 ESRD - chronic treatment by dialysis or transplant Performed By: #### C MPX, CDP #### [facility] [address] [place] [address] Car Record Clerk: Souleymane Pineda MD Urea nitrogen [Mass/Vol] 9 mg/dL Normal 6-20 [facility] Comment on above: Performed By: #### C MPX, CDP #### [facility] [address] [place] [address] Car Record Clerk: Souleymane Pineda MD Comprehensive Metabolic Pane l w/ Reflex to MGOrdered By: Keven Ching on 12-24-2020 Albumin [Mass/Vol] 4 g/dL 3.5 - 5.2 g/dL [facility] Phone: Albumin/Globulin [Mass ratio] 1.5 {ratio} [facility] Phone: ALP (Bld) [Catalytic activity/Vol] 90 U/L 35 - 104 U/L [facility] Phone: ALT [Catalytic activity/Vol] 40 U/L High 5 - 33 U/L [facility] Phone: Anion gap [Moles/Vol] 11 mmol/L 9 - 17 mmol/L [facility] Phone: AST [Catalytic activity/Vol] 19 U/L <32 [facility] Phone: Bilirubin [Mass/Vol] mg/dL Low 0.3 - 1 .2 mg/dL [facility] Phone: Calcium [Mass/Vol] 8.9 mg/dL 8.6 - 10. 4 mg/dL [facility] Phone: Chloride [Moles/Vol] 104 mmol/L 98 - 10 7 mmol/L [facility] Phone: CO2 [Moles/Vol] 24 mmol/L 20 - 31 mmol/L [facility] Phone: Creatinine [Mass/Vol] 0.6 mg/dL 0.50 - 0.90 mg/dL [facility] Phone: Free PSA/Total PSA [Mass fraction] 6.7 g/dL 6.4 - 8.3 g/dL [facility] Phone: GFR >60 >60 mL/min [facility] Phone: GFR Non- >60 >60 mL/min [facility] Phone: Glucose [Mass/Vol] 91 mg/dL 70 - 99 mg/dL [facility] Phone: Interpretation and review of laboratory results Abnormal [facility] Phone: Potassium [Moles/Vol] 4.0 mmol/L 3.7 - 5.3 mmol/L [facility] Phone: Sodium [Moles/Vol] 139 mmol/L 135 - 144 mmol/L [facility] Phone: Urea nitrogen (BldV) [Mass/Vol] 9 mg/dL 6 - 20 mg/dL [facility] Phone: Urea nitrogen/Creatinine (Bld) [Mass ratio] 15 [facility] Phone: [facility] Phone: Laboratory - Chemistry and C hemistry - challengeOrdered By: Keven Ching on 12-24-2020 GFR/1.73 sq M.predicted MDRD (S/P/Bld) [Vol rate/Area] [facility] Phone: Comment on above: Average GFR for 20-2 9 years old: 116 mL/min/1.73sq m Chronic Kidney Disease: <60 mL/min/1.73sq m Kidney failure: <15 mL/min/1.73sq m eGFR calculated using average adult body mass. Additional eGFR calculator available at: http://www.[employer]/multiple_crcl_2012.htm Stage 1: Some kidney damage normal GFR Stage 2: Mild kidney damage GFR 60-89 Stage 3: Moderate kidney damage GFR 30-59 Stage 4: Severe kidney damage GFR 15-29 Stage 5: Severe kidney damage GFR <15 ESRD - chronic treatment by dialysis or transplant Vital Signs Date Time Vital Sign Value Performing Clinician [facility] 09-03-2024 10:33-0400 Body mass index (BMI) [Ratio] 50.73 kg/m2 Zay Roopa DO Work Phone: [facility] 09-03-2024 10:33-0400 Body weight 121.79 kg Zay Roopa DO Work Phone: [facility] 09-03-2024 10:33-0400 Diastolic blood pressure 100 mm[Hg] Zay Roopa DO Work Phone: [facility] 09-03-2024 10:33-0400 Systolic blood pressure 136 mm[Hg] Zay Roopa DO Work Phone: [facility] 08-02-2024 12:12-0400 Diastolic blood pressure 77 mm[Hg] Infusion 5 Work Phone: [facility] 08-02-2024 12:12-0400 Heart rate 97 /min Infusion 5 Work Phone: [facility] 08-02-2024 12:12-0400 Systolic blood pressure 124 mm[Hg] Infusion 5 Work Phone: [facility] 08-01-2024 12:24-0400 Diastolic blood pressure 90 mm[Hg] Infusion 7 Work Phone: [facility] 08-01-2024 12:24-0400 Heart rate 98 /min Infusion 7 Work Phone: [facility] 08-01-2024 12:24-0400 Systolic blood pressure 134 mm[Hg] Infusion 7 Work Phone: [facility] 07-24-2024 15:07-0400 Body height 152.4 cm Hlaima Johns ASSISTANT PLANT MANAGER-[employer]TON TUFTING MACHINE OPERATOR Work Phone: [facility] 07-24-2024 15:07-0400 Body mass index (BMI) [Ratio] 49.76 kg/m2 Halima Johns ASSISTANT PLANT MANAGER-BUTTON TUFTING MACHINE OPERATOR Work Phone: [facility] 07-24-2024 15:07-0400 Body temperature 98.01 [degF] Halima Johns ASSISTANT PLANT MANAGER-BUTTON TUFTING MACHINE OPERATOR Work Phone: [facility] 07-24-2024 15:07-0400 Body weight 115.58 kg Halima Johns ASSISTANT PLANT MANAGER-BUTTON TUFTING MACHINE OPERATOR Work Phone: [facility] 07-24-2024 15:07-0400 Diastolic blood pressure 76 mm[Hg] Halima Johns ASSISTANT PLANT MANAGER-BUTTON TUFTING MACHINE OPERATOR Work Phone: [facility] 07-24-2024 15:07-0400 Heart rate 102 /min Halima Johns ASSISTANT PLANT MANAGER-BUTTON TUFTING MACHINE OPERATOR Work Phone: [facility] 07-24-2024 15:07-0400 SaO2% (BldA) [Mass fraction] 99 % Halima Johns ASSISTANT PLANT MANAGER-BUTTON TUFTING MACHINE OPERATOR Work Phone: [facility] 07-24-2024 15:07-0400 Systolic blood pressure 122 mm[Hg] Halima Mirandaler ASSISTANT PLANT MANAGER-BUTTON TUFTING MACHINE OPERATOR Work Phone: [facility] 07-01-2024 08:40-0400 Body mass index (BMI) [Ratio] 47.2 kg/m2 Zay Roopa DO Work Phone: [facility] 07-01-2024 08:40-0400 Body weight 113.31 kg Zay Roopa DO Work Phone: [facility] 07-01-2024 08:40-0400 Diastolic blood pressure 80 mm[Hg] Zay Patelo DO Work Phone: [facility] 07-01-2024 08:40-0400 Systolic blood pressure 120 mm[Hg] Zay Patelo DO Work Phone: [facility] 05-21-2024 09:43-0400 Body mass index (BMI) [Ratio] 46.09 kg/m2 Rajinder Cotton DO Work Phone: [facility] 05-21-2024 09:43-0400 Body temperature 97.81 [degF] Rajinder Cotton DO Work Phone: [facility] 05-21-2024 09:43-0400 Body weight 107.05 kg Rajinder Cotton DO Work Phone: [facility] 05-21-2024 09:43-0400 Diastolic blood pressure 90 mm[Hg] Rajinder Cotton DO Work Phone: [facility] 05-21-2024 09:43-0400 Heart rate 106 /min Rajinder Cotton DO Work Phone: [facility] 05-21-2024 09:43-0400 SaO2% (BldA) [Mass fraction] 98 % Rajinder Cotton DO Work Phone: [facility] 05-21-2024 09:43-0400 Systolic blood pressure 130 mm[Hg] Rajinder Cotton DO Work Phone: [facility] 05-15-2024 08:46-0400 Body height 152.4 cm Svetlana HERNANDEZ Work Phone: [facility] 05-15-2024 08:46-0400 Body mass index (BMI) [Ratio] 46.36 kg/m2 Svetlana HERNANDEZ Work Phone: [facility] 05-15-2024 08:46-0400 Body temperature 98.1 [degF] Svetlana HERNANDEZ Work Phone: [facility] 05-15-2024 08:46-0400 Body weight 107.68 kg Svetlana Ye PA Work Phone: [facility] 05-15-2024 08:46-0400 Diastolic blood pressure 72 mm[Hg] Svetlana Ye PA Work Phone: [facility] 05-15-2024 08:46-0400 Heart rate 98 /min Svetlana Ye PA Work Phone: [facility] 05-15-2024 08:46-0400 Respiratory rate 18 /min Svetlana Stewartne PA Work Phone: [facility] 05-15-2024 08:46-0400 SaO2% (BldA) [Mass fraction] 98 % Svetlana Ye PA Work Phone: [facility] 05-15-2024 08:46-0400 Systolic blood pressure 135 mm[Hg] Svetlana Ye PA Work Phone: [facility] 05-02-2024 12:20-0400 Diastolic blood pressure 70 mm[Hg] Infusion 7 Work Phone: [facility] 05-02-2024 12:20-0400 Heart rate 90 /min Infusion 7 Work Phone: [facility] 05-02-2024 12:20-0400 Systolic blood pressure 130 mm[Hg] Infusion 7 Work Phone: [facility] 04-25-2024 13:06-0500 Body height 154.9 cm Corine Gold MD Work Phone: [facility] 04-25-2024 13:06-0500 Body mass index (BMI) [Ratio] 44.01 kg/m2 Corine Gold MD Work Phone: [facility] 04-25-2024 13:06-0500 Body temperature 97.7 [degF] Corine Gold MD Work Phone: [facility] 04-25-2024 13:06-0500 Body weight 105.6 kg Corine Gold MD Work Phone: [facility] 04-25-2024 13:06-0500 Diastolic blood pressure 78 mm[Hg] Corine Gold MD Work Phone: [facility] 04-25-2024 13:06-0500 Heart rate 91 /min Corine Gold MD Work Phone: [facility] 04-25-2024 13:06-0500 SaO2% (BldA) [Mass fraction] 98 % Corine Gold MD Work Phone: [facility] 04-25-2024 13:06-0500 Systolic blood pressure 126 mm[Hg] Corine Gold MD Work Phone: [facility] 04-24-2024 09:45-0500 Body mass index (BMI) [Ratio] 44.58 kg/m2 Svetlana Ye PA Work Phone: [facility] 04-24-2024 09:45-0500 Body temperature 97.9 [degF] Svetlana Ye PA Work Phone: [facility] 04-24-2024 09:45-0500 Body weight 106.96 kg Svetlana Ye PA Work Phone: [facility] 04-24-2024 09:45-0500 Diastolic blood pressure 79 mm[Hg] Svetlana Ye PA Work Phone: [facility] 04-24-2024 09:45-0500 Heart rate 99 /min Svetlana Ye PA Work Phone: [facility] [facility] 04-24-2024 09:45-0500 SaO2% (BldA) [Mass fraction] 96 % Svetlana Ye PA Work Phone: [facility] 04-24-2024 09:45-0500 Systolic blood pressure 124 mm[Hg] Svetlana Ye PA Work Phone: [facility] 04-15-2024 09:16-0500 Diastolic blood pressure 76 mm[Hg] Svetlana Ye PA Work Phone: [facility] 04-15-2024 09:16-0500 Heart rate 88 /min Svetlana Ye PA Work Phone: [facility] 04-15-2024 09:16-0500 Respiratory rate 16 /min Svetlana Ye PA Work Phone: [facility] 04-15-2024 09:16-0500 SaO2% (BldA) [Mass fraction] 96 % Svetlana Ye PA Work Phone: [facility] 04-15-2024 09:16-0500 Systolic blood pressure 122 mm[Hg] Svetlana Ye PA Work Phone: [facility] 04-15-2024 09:01-0500 Body height 154.9 cm Svetlana Ye PA Work Phone: [facility] 04-15-2024 09:01-0500 Body mass index (BMI) [Ratio] 45.83 kg/m2 Svetlana Ye PA Work Phone: [facility] 04-15-2024 09:01-0500 Body weight 109.95 kg Svetlana Ye PA Work Phone: [facility] 04-10-2024 11:09-0500 Body temperature 97.5 [degF] Milad Hernandez MD Work Phone: [facility] 04-10-2024 11:09-0500 Diastolic blood pressure 63 mm[Hg] Milad Hernandez MD Work Phone: [facility] 04-10-2024 11:09-0500 Heart rate 90 /min Milad Hernandez MD Work Phone: [facility] 04-10-2024 11:09-0500 Respiratory rate 18 /min Milad Hernandez MD Work Phone: [facility] 04-10-2024 11:09-0500 SaO2% (BldA) [Mass fraction] 95 % Milad Hernandez MD Work Phone: [facility] 04-10-2024 11:09-0500 Systolic blood pressure 117 mm[Hg] Milad Hernandez MD Work Phone: [facility] 04-10-2024 05:25-0500 Body mass index (BMI) [Ratio] 47.4 kg/m2 Milad Hernandez MD Work Phone: [facility] 04-10-2024 05:25-0500 Body weight 113.8 kg Milad Hernandez MD Work Phone: [facility] 04-02-2024 13:07-0500 Body mass index (BMI) [Ratio] 45.73 kg/m2 [employer] Work Phone: [facility] 04-02-2024 13:07-0500 Body weight 109.77 kg Zay Roopa [employer] Work Phone: [facility] 04-02-2024 13:07-0500 Diastolic blood pressure 90 mm[Hg] Zay Roopa [employer] Work Phone: [facility] 04-02-2024 13:07-0500 Systolic blood pressure 130 mm[Hg] Zay Roopa [employer] Work Phone: [facility] 03-25-2024 15:21-0500 Body temperature 98.2 [degF] [facility] [address] [place] [address] 03-25-2024 15:21-0500 Diastolic blood pressure 62 mm[Hg] [facility] [address] [place] [address] 03-25-2024 15:21-0500 Heart rate 86 /min [facility] [address] [place] [address] 03-25-2024 15:21-0500 Respiratory rate 20 /min [facility] 03-25-2024 15:21-0500 SaO2% (BldA) [Mass fraction] 99 % [facility] 03-25-2024 15:21-0500 Systolic blood pressure 132 mm[Hg] [facility] 03-25-2024 14:58-0500 Body height 154.9 cm [facility] 3 [facility] 03-25-2024 14:58-0500 Body mass index (BMI) [Ratio] 45.57 kg/m2 [facility] 3 [facility] 03-25-2024 14:58-0500 Body weight 109.4 kg [facility] 3 [facility] 03-20-2024 12:15-0500 Body height 154.9 cm Vincent Peña DO Work Phone: [facility] 03-20-2024 12:15-0500 Body mass index (BMI) [Ratio] 45.54 kg/m2 Vincent Peña DO Work Phone: [facility] 03-20-2024 12:15-0500 Body weight 109.32 kg Vincent Peña DO Work Phone: [facility] 03-20-2024 12:15-0500 Diastolic blood pressure 80 mm[Hg] Vincent Peña DO Work Phone: [facility] 03-20-2024 12:15-0500 Heart rate 97 /min Vincent Peña DO Work Phone: [facility] 03-20-2024 12:15-0500 SaO2% (BldA) [Mass fraction] 98 % Vincent Peña DO Work Phone: [facility] 03-20-2024 12:15-0500 Systolic blood pressure 129 mm[Hg] Vincent Peña DO Work Phone: [facility] 03-20-2024 12:07-0500 Body height 154.[address] 03-20-2024 12:07-0500 Body mass index (BMI) [Ratio] 45.54 kg/m2 [address] 03-20-2024 12:07-0500 Body weight 109.[address] 03-18-2024 11:03-0500 Body height 154.9 cm Mundo Martinez MD Work Phone: [facility] 03-18-2024 11:03-0500 Body mass index (BMI) [Ratio] 45.69 kg/m2 Mundo Martinez MD Work Phone: [facility] 03-18-2024 11:03-0500 Body temperature 97.9 [degF] Mundo Martinez MD Work Phone: [facility] 03-18-2024 11:03-0500 Body weight 109.68 kg Mundo Martinez MD Work Phone: [facility] 03-18-2024 11:03-0500 Heart rate 77 /min Mundo Martinez MD Work Phone: [facility] 03-18-2024 11:03-0500 SaO2% (BldA) [Mass fraction] 99 % Mundo Martinez MD Work Phone: [facility] 03-06-2024 10:45-0500 Body mass index (BMI) [Ratio] 45.69 kg/m2 Zay Roopa DO Work Phone: [facility] 03-06-2024 10:45-0500 Body weight 109.68 kg Zay Roopa DO Work Phone: [facility] 03-06-2024 10:45-0500 Diastolic blood pressure 84 mm[Hg] Zay Roopa DO Work Phone: [facility] 03-06-2024 10:45-0500 Systolic blood pressure 122 mm[Hg] Zay Roopa DO Work Phone: [facility] 02-28-2024 11:25-0500 Body mass index (BMI) [Ratio] 47.31 kg/m2 Zay Roopa DO Work Phone: [facility] 02-28-2024 11:25-0500 Body weight 113.58 kg Zay Ropoa DO Work Phone: [facility] 02-28-2024 11:25-0500 Diastolic blood pressure 80 mm[Hg] Zay Roopa DO Work Phone: [facility] 02-28-2024 11:25-0500 Systolic blood pressure 126 mm[Hg] Zay Roopa DO Work Phone: [facility] 02-09-2024 10:38-0500 Body height 154.9 cm Lamont Shay MD Work Phone: [facility] 02-09-2024 10:38-0500 Body mass index (BMI) [Ratio] 49.13 kg/m2 Lamont Shay MD Work Phone: [facility] 02-09-2024 10:38-0500 Body temperature 98.01 [degF] Lamont Shay MD Work Phone: [facility] 02-09-2024 10:38-0500 Body weight 117.94 kg Lamont Shay MD Work Phone: [facility] 02-09-2024 10:38-0500 Diastolic blood pressure 58 mm[Hg] Lamont Shay MD Work Phone: [facility] 02-09-2024 10:38-0500 Heart rate 111 /min Lamont Shay MD Work Phone: [facility] 02-09-2024 10:38-0500 Respiratory rate 22 /min Lamont Shay MD Work Phone: [facility] 02-09-2024 10:38-0500 SaO2% (BldA) [Mass fraction] 90 % Lamont Shay MD Work Phone: [facility] 02-09-2024 10:38-0500 Systolic blood pressure 118 mm[Hg] Lamont Shay MD Work Phone: [facility] 01-23-2024 13:28-0500 Body height 154.9 cm Lamont Shay MD Work Phone: [facility] 01-23-2024 13:28-0500 Body mass index (BMI) [Ratio] 52.91 kg/m2 Lamont Shay MD Work Phone: [facility] 01-23-2024 13:28-0500 Body temperature 98.4 [degF] Lamont Shay MD Work Phone: [facility] 01-23-2024 13:28-0500 Body weight 127.01 kg Lamont Shay MD Work Phone: [facility] 01-23-2024 13:28-0500 Diastolic blood pressure 74 mm[Hg] Lamont Shay MD Work Phone: [facility] 01-23-2024 13:28-0500 Heart rate 123 /min Lamont Shay MD Work Phone: [facility] 01-23-2024 13:28-0500 Respiratory rate 26 /min Lamont Shay MD Work Phone: [facility] 01-23-2024 13:28-0500 SaO2% (BldA) [Mass fraction] 87 % Lamont Shay MD Work Phone: [facility] 01-23-2024 13:28-0500 Systolic blood pressure 128 mm[Hg] Lamont Shay MD Work Phone: [facility] 01-22-2024 15:39-0500 Diastolic blood pressure 82 mm[Hg] Infusion 1 Work Phone: [facility] 01-22-2024 15:39-0500 Heart rate 97 /min Infusion 1 Work Phone: [facility] 01-22-2024 15:39-0500 Systolic blood pressure 135 mm[Hg] Infusion 1 Work Phone: [facility] 01-22-2024 13:35-0500 SaO2% (BldA) [Mass fraction] 97 % Infusion 1 Work Phone: [facility] Comment on above: on room air 01-19-2024 11:28-0500 Diastolic blood pressure 75 mm[Hg] Infusion 5 Work Phone: [facility] 01-19-2024 11:28-0500 Heart rate 88 /min Infusion 5 Work Phone: [facility] 01-19-2024 11:28-0500 Systolic blood pressure 126 mm[Hg] Infusion 5 Work Phone: [facility] 01-19-2024 10:00-0500 Body temperature 97.3 [degF] Infusion 5 Work Phone: [facility] 01-17-2024 11:09-0500 Diastolic blood pressure 69 mm[Hg] Infusion 6 Work Phone: [facility] 01-17-2024 11:09-0500 Heart rate 85 /min Infusion 6 Work Phone: [facility] 01-17-2024 11:09-0500 Systolic blood pressure 129 mm[Hg] Infusion 6 Work Phone: [facility] 01-09-2024 09:18-0500 Body height 154.9 cm Lamont Shay MD Work Phone: [facility] 01-09-2024 09:18-0500 Body mass index (BMI) [Ratio] 53.66 kg/m2 Lamont Shay MD Work Phone: [facility] 01-09-2024 09:18-0500 Body temperature 98.01 [degF] Lamont Shay MD Work Phone: [facility] 01-09-2024 09:18-0500 Body weight 128.82 kg Lamont Shay MD Work Phone: [facility] 01-09-2024 09:18-0500 Diastolic blood pressure 72 mm[Hg] Lamont Shay MD Work Phone: [facility] 01-09-2024 09:18-0500 Heart rate 101 /min Lamont Shay MD Work Phone: [facility] 01-09-2024 09:18-0500 Respiratory rate 20 /min Lamont Shay MD Work Phone: [facility] 01-09-2024 09:18-0500 SaO2% (BldA) [Mass fraction] 90 % Lamont Shay MD Work Phone: [facility] 01-09-2024 09:18-0500 Systolic blood pressure 140 mm[Hg] Lamont Shay MD Work Phone: [facility] 01-05-2024 13:38-0500 Diastolic blood pressure 83 mm[Hg] Infusion 8 Work Phone: [facility] 01-05-2024 13:38-0500 Heart rate 105 /min Infusion 8 Work Phone: [facility] 01-05-2024 13:38-0500 Systolic blood pressure 139 mm[Hg] Infusion 8 Work Phone: [facility] 11-15-2023 09:05-0400 Body height 154.9 cm Lamont Shay MD Work Phone: [facility] 11-15-2023 09:05-0400 Body mass index (BMI) [Ratio] 51.58 kg/m2 Lamont Shay MD Work Phone: [facility] 11-15-2023 09:05-0400 Body temperature 97.81 [degF] Lamont Shay MD Work Phone: [facility] 11-15-2023 09:05-0400 Body weight 123.83 kg Lamont Shay MD Work Phone: [facility] 11-15-2023 09:05-0400 Diastolic blood pressure 66 mm[Hg] Lamont Shay MD Work Phone: [facility] 11-15-2023 09:05-0400 Heart rate 60 /min Lamont Shay MD Work Phone: [facility] 11-15-2023 09:05-0400 Respiratory rate 24 /min Lamont Shay MD Work Phone: [facility] 11-15-2023 09:05-0400 Systolic blood pressure 126 mm[Hg] Lamont Shay MD Work Phone: [facility] 10-13-2023 13:51-0400 Diastolic blood pressure 74 mm[Hg] Infusion 8 Work Phone: [facility] 10-13-2023 13:51-0400 Heart rate 77 /min Infusion 8 Work Phone: [facility] 10-13-2023 13:51-0400 Systolic blood pressure 134 mm[Hg] Infusion 8 Work Phone: [facility] 10-10-2023 09:25-0400 Body height 154.9 cm Lamont Shay MD Work Phone: [facility] 10-10-2023 09:25-0400 Body mass index (BMI) [Ratio] 48.94 kg/m2 Lamont Shay MD Work Phone: [facility] 10-10-2023 09:25-0400 Body temperature 97.5 [degF] Lamont Shay MD Work Phone: [facility] 10-10-2023 09:25-0400 Body weight 117.48 kg Lamont Shay MD Work Phone: [facility] 10-10-2023 09:25-0400 Diastolic blood pressure 78 mm[Hg] Lamont Shay MD Work Phone: [facility] 10-10-2023 09:25-0400 Heart rate 88 /min Lamont Shay MD Work Phone: [facility] 10-10-2023 09:25-0400 Respiratory rate 22 /min Lamont Shay MD Work Phone: [facility] 10-10-2023 09:25-0400 SaO2% (BldA) [Mass fraction] 95 % Lamont Shay MD Work Phone: [facility] 10-10-2023 09:25-0400 Systolic blood pressure 116 mm[Hg] Lamont Shay MD Work Phone: [facility] 09-19-2023 14:22-0400 Body height 158.4 cm Koli Green ASSISTANT PLANT MANAGER.BUTTON TUFTING MACHINE OPERATOR Work Phone: [facility] 09-19-2023 14:22-0400 Body mass index (BMI) [Ratio] 47.33 kg/m2 Koli Green ASSISTANT PLANT MANAGER.BUTTON TUFTING MACHINE OPERATOR Work Phone: [facility] 09-19-2023 14:22-0400 Body temperature 99.1 [degF] Koli Green ASSISTANT PLANT MANAGER.BUTTON TUFTING MACHINE OPERATOR Work Phone: [facility] 09-19-2023 14:22-0400 Body weight 118.75 kg Koli Green ASSISTANT PLANT MANAGER.BUTTON TUFTING MACHINE OPERATOR Work Phone: [facility] 09-19-2023 14:22-0400 Diastolic blood pressure 81 mm[Hg] Koli Green ASSISTANT PLANT MANAGER.BUTTON TUFTING MACHINE OPERATOR Work Phone: [facility] 09-19-2023 14:22-0400 Heart rate 80 /min Koli Green ASSISTANT PLANT MANAGER.BUTTON TUFTING MACHINE OPERATOR Work Phone: [facility] 09-19-2023 14:22-0400 Systolic blood pressure 115 mm[Hg] Cameroni Green ASSISTANT PLANT MANAGER.BUTTON TUFTING MACHINE OPERATOR Work Phone: [facility] 08-18-2023 09:26-0400 Diastolic blood pressure 51 mm[Hg] Curtis Lepe PA-C Work Phone: [facility] 08-18-2023 09:26-0400 Heart rate 88 /min Curtis Lepe PA-C Work Phone: [facility] 08-18-2023 09:26-0400 SaO2% (BldA) [Mass fraction] 97 % Curtis Lepe PA-C Work Phone: [facility] 08-18-2023 09:26-0400 Systolic blood pressure 116 mm[Hg] Curtis Lepe PA-C Work Phone: [facility] 04-14-2023 11:08-0500 Diastolic blood pressure 62 mm[Hg] Infusion 7 Work Phone: [facility] 04-14-2023 11:08-0500 Heart rate 84 /min Infusion 7 Work Phone: [facility] 04-14-2023 11:08-0500 Systolic blood pressure 109 mm[Hg] Infusion 7 Work Phone: [facility] 04-13-2023 10:50-0500 Diastolic blood pressure 63 mm[Hg] Infusion 7 Work Phone: [facility] 04-13-2023 10:50-0500 Heart rate 86 /min Infusion 7 Work Phone: [facility] 04-13-2023 10:50-0500 Systolic blood pressure 127 mm[Hg] Infusion 7 Work Phone: [facility] 04-12-2023 13:45-0500 Diastolic blood pressure 58 mm[Hg] Infusion 7 Work Phone: [facility] 04-12-2023 13:45-0500 Heart rate 79 /min Infusion 7 Work Phone: [facility] 04-12-2023 13:45-0500 Systolic blood pressure 120 mm[Hg] Infusion 7 Work Phone: [facility] 11-11-2022 10:55-0400 Diastolic blood pressure 63 mm[Hg] Infusion 8 Work Phone: [facility] 11-11-2022 10:55-0400 Heart rate 83 /min Infusion 8 Work Phone: [facility] 11-11-2022 10:55-0400 Systolic blood pressure 110 mm[Hg] Infusion 8 Work Phone: [facility] 07-28-2022 10:15-0400 Diastolic blood pressure 50 mm[Hg] Infusion 8 Work Phone: [facility] 07-28-2022 10:15-0400 Heart rate 80 /min Infusion 8 Work Phone: [facility] 07-28-2022 10:15-0400 Systolic blood pressure 105 mm[Hg] Infusion 8 Work Phone: [facility] 12-03-2021 09:47-0400 Diastolic blood pressure 81 mm[Hg] Jesse Borrego Work Phone: [facility] 12-03-2021 09:47-0400 Heart rate 66 /min Jesse Borrego Work Phone: [facility] 12-03-2021 09:47-0400 SaO2% (BldA) [Mass fraction] 100 % Jesse Borrego Work Phone: [facility] 12-03-2021 09:47-0400 Systolic blood pressure 131 mm[Hg] Jesse Salima Work Phone: [facility] 10-20-2021 12:00-0400 Diastolic blood pressure 101 mm[Hg] Lucila Mota MD Work Phone: [email or web address] Interface21 10-20-2021 12:00-0400 Heart rate 85 /min Lucila Mota MD Work Phone: [facility] 10-20-2021 12:00-0400 Respiratory rate 12 /min Lucila Mota MD Work Phone: [facility] 10-20-2021 12:00-0400 SaO2% (BldA) [Mass fraction] 98 % Lucila Mota MD Work Phone: [facility] 10-20-2021 12:00-0400 Systolic blood pressure 136 mm[Hg] Lcuila Mota MD Work Phone: [facility] 10-20-2021 08:00-0400 Body temperature 98.2 [degF] Lucila Mota MD Work Phone: [facility] 12-24-2020 19:36-0400 Body temperature 99 [degF] Keven Ching DO Work Phone: [email or web address] Work Phone: 12-24-2020 19:36-0400 Diastolic blood pressure 80 mm[Hg] Keven Ching DO Work Phone: [email or web address] Work Phone: 12-24-2020 19:36-0400 Heart rate 108 /min Keven Ching DO Work Phone: [email or web address] Work Phone: 12-24-2020 19:36-0400 Respiratory rate 20 /min Keven Ching DO Work Phone: [email or web address] Work Phone: 12-24-2020 19:36-0400 SaO2% (BldA) [Mass fraction] 96 % Keven Ching DO Work Phone: [email or web address] Work Phone: 12-24-2020 19:36-0400 Systolic blood pressure 136 mm[Hg] Keven Ching DO Work Phone: [employer] Phone: Encounters Encounter Date Encounter Type Care Provider Facility Start: 09-03-2024 End: 09-03-2024 Bamboo flowsheet Zay Roopa DO Work Phone: [facility] Start: 09-03-2024 End: 09-03-2024 Bamboo flowsheet Zay Roopa DO Work Phone: [facility] Start: 09-03-2024 End: 09-03-2024 Office outpatient visit 15 minutes Zay Roopa DO Work Phone: [facility] Comment on above: Hot flashes due to s urgical menopause Start: 09-03-2024 End: 09-03-2024 ambulatory ZAY ROOPA Not Available Start: 09-02-2024 End: 09-02-2024 Orders Only Sagar Barth ASSISTANT PLANT MANAGER.BUTTON TUFTING MACHINE OPERATOR Work Phone: [facility] Comment on above: Intractable chronic migraine without aura and without status migrainosus (Primary Dx) Start: 08-30-2024 End: 08-30-2024 Orders Only Sagar Barth ASSISTANT PLANT MANAGER.BUTTON TUFTING MACHINE OPERATOR Work Phone: Neurology [facility] Start: 08-26-2024 End: 08-26-2024 Orders Only Mali Hart ASSISTANT PLANT MANAGER-BUTTON TUFTING MACHINE OPERATOR Work Phone: [facility] Comment on above: Allergic reaction, s equela (Primary Dx) Start: 08-16-2024 End: 08-16-2024 ambulatory Sagar Barth APRN.BUTTON TUFTING MACHINE OPERATOR Work Phone: Neurology Headache [facility] Comment on above: Infusion Start: 08-15-2024 End: 08-19-2024 ambulatory Curtis Lepe PA-C Work Phone: Neurology Comment on above: Heads pounding Start: 08-05-2024 End: 08-06-2024 Telephone encounter Rhiannon Garciariley [facility] Comment on above: Insurance Authorizat ion (Zavzpret 10MG/ACT solution); Zavzpret 10MG/ACT solution Start: 08-02-2024 End: 08-02-2024 Patient encounter procedure Curtis Lepe PA-C Work Phone: Neurology Comment on above: Intractable chronic migraine without aura and with status migrainosus (Primary Dx); Status migrainosus Start: 08-02-2024 End: 08-02-2024 ambulatory Infusion Main Chair 5 Work Phone: Neurology Comment on above: Chronic migraine wit hout aura, with intractable migraine, so stated, with status migrainosus (Primary Dx); Intractable chronic migraine without aura and with status migrainosus Start: 08-01-2024 End: 08-01-2024 ambulatory Infusion Main Chair 7 Work Phone: Neurology Comment on above: Intractable chronic migraine without aura and without status migrainosus (Primary Dx) Start: 07-24-2024 End: 07-24-2024 Office outpatient visit 25 minutes Halima Johns ASSISTANT PLANT MANAGER-BUTTON TUFTING MACHINE OPERATOR Work Phone: [facility] Comment on above: Eye infection, bilat eral (Primary Dx); Ingrown nail of great toe Start: 07-05-2024 End: 07-05-2024 Documentation procedure Neeraj Shane [facility] Comment on above: Received [facility] FAX Start: 07-05-2024 End: 07-05-2024 Telephone encounter Curtis Lepe PA-C Work Phone: Neurology Comment on above: Infusion (Headache i nfusion scheduling) Start: 07-04-2024 End: 07-04-2024 [facility] Curtis Lepe PA-C Work Phone: Neurology Comment on above: Status migrainosus ( Primary Dx); Intractable chronic migraine without aura and without status migrainosus; Generalized anxiety disorder; Chronic migraine without aura, with intractable migraine, so stated, with status migrainosus; Intractable chronic migraine without aura and with status migrainosus Start: 07-01-2024 End: 07-01-2024 Bamboo flowsheet Zay Roopa DO Work Phone: [facility] Start: 07-01-2024 End: 07-01-2024 Bamboo flowsheet Zay Roopa DO Work Phone: [facility] Start: 07-01-2024 End: 07-01-2024 Office outpatient visit 15 minutes Zay Roopa DO Work Phone: [facility] Comment on above: Yeast infection; BV (bacterial vaginosis); Low libido; Dyspareunia in female Start: 07-01-2024 End: 07-01-2024 ambulatory ZAY ROOPA Not Available Start: 06-25-2024 End: 08-16-2024 Telephone encounter Viktoria Walton MS, [facility] Work Phone: [facility] Comment on above: Genetic Testing Prio r Authorization Request Start: 06-11-2024 End: 06-11-2024 ambulatory CORINE GOLD [facility] Start: 06-10-2024 End: 06-10-2024 Orders Only Viktoria Walton MS, CGC Work Phone: [facility] Start: 06-07-2024 End: 06-07-2024 [facility] Start: 06-06-2024 End: 06-06-2024 Office outpatient visit 25 minutes Corine Gold MD Work Phone: [facility] Comment on above: Weight loss (Primary Dx); Moderate persistent asthma with acute exacerbation; Seasonal allergic rhinitis, unspecified trigger Start: 06-06-2024 End: 06-10-2024 Refill Corine Gold MD Work Phone: [facility] Comment on above: Seasonal allergic rh initis, unspecified trigger Start: 05-31-2024 End: 06-04-2024 Refill Sagar Barth APRN.BUTTON TUFTING MACHINE OPERATOR Work Phone: Neurology Headache [facility] Comment on above: Refill Request Start: 05-24-2024 End: 05-27-2024 Refill Vincent Peña DO Work Phone: [facility] Comment on above: Moderate persistent asthma, unspecified whether complicated Start: 05-21-2024 End: 05-21-2024 Office outpatient visit 15 minutes Rajinder Cotton DO Work Phone: [facility] Comment on above: Moderate persistent asthma with acute exacerbation (Primary Dx); Acute pansinusitis, recurrence not specified; Antibiotic-induced yeast infection Start: 05-15-2024 End: 05-15-2024 Postop follow up visit related to original px Svetlana HERNANDEZ Work Phone: [facility] Comment on above: S/P bilateral salpin go-oophorectomy (Primary Dx); Menopausal symptoms Start: 05-07-2024 End: 05-13-2024 Telephone encounter Angely Cotton RN Work Phone: [facility] Comment on above: Insurance Authorizat ion; [employer] Start: 05-03-2024 End: 05-03-2024 [facility] Curtis Lepe PA-C Work Phone: Neurology Comment on above: Intractable chronic migraine without aura and with status migrainosus (Primary Dx); Nausea; Generalized anxiety disorder Start: 05-02-2024 End: 05-02-2024 Orders Only Svetlana HERNANDEZ Work Phone: [facility] Oncology, A [facility] Comment on above: Postoperative infect ion, unspecified type, subsequent encounter (Primary Dx) Chronic migraine wit hout aura, with intractable migraine, so stated, with status migrainosus (Primary Dx); Intractable chronic migraine without aura and with status migrainosus; Intractable chronic migraine without aura and without status migrainosus Start: 05-01-2024 End: 05-01-2024 Orders Only Vincent Peña DO Work Phone: [facility] Comment on above: Moderate persistent asthma, unspecified whether complicated Start: 04-30-2024 End: 04-30-2024 Telephone encounter Caterina Smith CMA [facility] Start: 04-29-2024 End: 04-29-2024 Orders Only Mali Hart APRN-BUTTON TUFTING MACHINE OPERATOR Work Phone: [facility] Comment on above: Postoperative surgic al complication involving genitourinary system associated with genitourinary procedure, unspecified complication Start: 04-25-2024 End: 04-25-2024 Office outpatient new 45 minutes Corine Gold MD Work Phone: [facility] Comment on above: Muscle spasm (Primar y Dx); Fatigue due to depression; Nausea and vomiting, unspecified vomiting type; Mild persistent asthma without status asthmaticus without complication; Psychogenic nonepileptic seizure Start: 04-24-2024 End: 04-24-2024 Documentation procedure [facility] Start: 04-24-2024 End: 04-24-2024 Postop follow up visit related to original px Svetlana HERNANDEZ Work Phone: [facility] Comment on above: Post-operative pain (Primary Dx) Start: 04-19-2024 End: 04-22-2024 ambulatory Sagar Barth APRN.BUTTON TUFTING MACHINE OPERATOR Work Phone: Neurology Headache [facility] Comment on above: Infusions Start: 04-16-2024 End: 04-16-2024 Bamboo flowsheet Zay Blas DO Work Phone: [facility] Start: [...] up visit related to original px Svetlana Ye PA Work Phone: [facility] Gynecology Oncology, A Department of [facility] Comment on above: Postoperative surgic al complication involving genitourinary system associated with genitourinary procedure, unspecified complication (Primary Dx); Post-op pain; Sweating profusely; Menopausal symptoms; Nausea and vomiting, unspecified vomiting type Start: 04-08-2024 End: 04-08-2024 Telephone encounter Sofia Ku CMA [facility] Gynecology Oncology, A Department of [facility] Start: 04-08-2024 End: 04-10-2024 Evaluation and management of inpatient Yordy Melton DO Work Phone: [facility] - GEN 6 Acute Comment on above: [...] 04-01-2024 Orders Only Svetlana HERNANDEZ Work Phone: [facility] Gynecology Oncology, A Department of [facility] Comment on above: S/P bilateral salpin go-oophorectomy Post-op pain (Primar y Dx) Start: 03-25-2024 End: 03-25-2024 Patient encounter status [facility] Start: 03-25-2024 End: 03-25-2024 Orders Only Mundo Martinez MD Work Phone: [facility] Gynecology Oncology, A Department of [facility] Comment on above: Preop testing (Prima ry Dx); Bilateral ovarian cysts Start: 03-21-2024 End: 03-21-2024 Telephone encounter Mundo Martinez MD Work Phone: [facility] Gynecology Oncology, A Department of [facility] Comment on above: Other (Surgery quest ions) Start: 03-21-2024 End: 03-21-2024 ambulatory Sagar Tab SEO Work Phone: Neurology Headache [facility] Comment on above: Intractable chronic migraine without aura and without status migrainosus (Primary Dx) Start: 03-21-2024 End: 03-21-2024 Telemedicine consultation with patient Sagar Barth UMANG.FADY Work Phone: Neurology Headache [facility] Start: 03-20-2024 End: 03-20-2024 Office outpatient new 45 minutes Vincent Peña DO Work Phone: [facility] Comment on above: Asthma, unspecified asthma severity, unspecified whether complicated, unspecified whether persistent (Primary Dx); Bilateral ovarian cysts; Moderate asthma with acute exacerbation, unspecified whether persistent; Encounter for preoperative pulmonary examination; Pulmonary nodule; Gastroesophageal reflux disease, unspecified whether esophagitis present Start: 03-20-2024 End: 03-20-2024 Preoperative state Mundo Martinez MD Work Phone: [facility] Start: 03-20-2024 End: 03-20-2024 Orders Only Mundo Martinez MD Work Phone: [facility] Gynecology Oncology, A Department of [facility] Comment on above: Bilateral ovarian cy sts (Primary Dx); Moderate asthma with acute exacerbation, unspecified whether persistent; Encounter for preoperative pulmonary examination Acute cough [R05.1] (Primary Dx) Start: 03-19-2024 End: 03-19-2024 Orders Only Mundo Martinez MD Work Phone: [facility] Gynecology Oncology, A Department of [facility] Comment on above: Bilateral ovarian cy sts (Primary Dx); Preop testing Start: 03-19-2024 End: 03-19-2024 Patient encounter status Mundo Martinez MD Work Phone: [facility] Start: 03-18-2024 End: 03-18-2024 Office outpatient new 60 minutes Mundo Martinez MD Work Phone: [facility] Gynecology Oncology, A Department of [facility] Comment on above: Cyst of right ovary (Primary Dx) Start: 03-06-2024 End: 03-06-2024 Office outpatient visit 15 minutes Zay Roopa DO Work Phone: [facility] Comment on above: Cyst of [...] 02-22-2024 End: 02-22-2024 Telephone encounter Sagar Barth APRN.BUTTON TUFTING MACHINE OPERATOR Work Phone: Neurology Headache [facility] Comment on above: Insurance Authorizat ion (Zolmitriptan) Start: 02-16-2024 End: 02-16-2024 ambulatory Dariusz Bernardvikas Facility:[facility] Start: 02-09-2024 End: 02-09-2024 Office outpatient visit 25 minutes Lamont Shay MD Work Phone: [facility] Comment on above: Generalized abdomina l pain (Primary Dx); Intractable nausea and vomiting; Mild persistent asthma with (acute) exacerbation ([facility]) Start: 02-09-2024 End: 02-09-2024 ambulatory LAMONT SHAY Not Available Start: 01-31-2024 End: 02-02-2024 Clinisync Result Encounter Generic External Data Provider [facility] External Department Unsolicited Start: 01-31-2024 End: 02-02-2024 Clinisync Result Encounter Generic External Data Provider [facility] External Department Unsolicited Start: 01-29-2024 End: 01-30-2024 Telephone encounter Sagar Barth APRN.BUTTON TUFTING MACHINE OPERATOR Work Phone: Neurology Headache [facility] Start: 01-24-2024 End: 01-24-2024 Orders Only Lamont Shay MD Work Phone: [facility] Comment on above: COVID-19 Start: 01-23-2024 End: 01-23-2024 Bamboo flowsheet Lamont Shay MD Work Phone: [facility] Start: 01-23-2024 End: 01-23-2024 Bamboo flowsheet Lamont Shay MD Work Phone: [facility] Start: 01-23-2024 End: 01-23-2024 Office outpatient visit 25 minutes Lamont Shay MD Work Phone: [facility] Comment on above: Mild persistent asth ma with (acute) exacerbation (CMS/HCC) (Primary Dx); Generalized edema; SOB (shortness of breath) on exertion Start: 01-23-2024 End: 01-23-2024 ambulatory LAMONT SHAY Not Available Start: 01-22-2024 End: 01-22-2024 Patient encounter procedure Raiza Morales ASSISTANT PLANT MANAGER.BUTTON TUFTING MACHINE OPERATOR Work Phone: Neurology Comment on above: Chronic [...] 01-22-2024 Refill Lamont Shay MD Work Phone: [facility] Comment on above: Pain, dental Start: [...] Start: 01-16-2024 End: 01-16-2024 ambulatory Sagar Barth ASSISTANT PLANT MANAGER.BUTTON TUFTING MACHINE OPERATOR Work Phone: Neurology [facility] Comment on above: Please help Start: [...] Start: 12-05-2023 End: 12-05-2023 ambulatory Ольга Aguilar ASSISTANT PLANT MANAGER.BUTTON TUFTING MACHINE OPERATOR Work Phone: Neurology Comment on above: Intractable chronic migraine without aura and without status migrainosus (Primary Dx) Start: 12-05-2023 End: 12-05-2023 Telemedicine consultation with patient Ольга Aguilar APRN.BUTTON TUFTING MACHINE OPERATOR Work Phone: Neurology Start: 11-15-2023 End: 11-15-2023 [...] Start: 09-19-2023 End: 09-19-2023 ambulatory SAGAR BARTH Facility:[facility] Start: 09-19-2023 End: 09-19-2023 Patient encounter procedure Sagar Barth APRN.BUTTON TUFTING MACHINE OPERATOR Work Phone: Neurology [facility] Comment on above: Intractable chronic migraine without aura and without status migrainosus (Primary Dx) Start: 08-18-2023 End: 08-18-2023 ambulatory CURTIS LEPE Facility:[facility] Start: 08-18-2023 End: 08-18-2023 Patient encounter procedure Curtis Lepe PA-C Work Phone: Neurology Comment on above: Intractable chronic migraine without aura and without status migrainosus (Primary Dx); Psychogenic nonepileptic seizure Start: 08-16-2023 ambulatory Sagar Barth APR N.BUTTON TUFTING MACHINE OPERATOR Work Phone: Neurology [facility] Start: 08-16-2023 Subsequent hospital visit by physician Sagar Barth APRN.BUTTON TUFTING MACHINE OPERATOR Work Phone: Neurology [facility] Comment on above: Hospital visit Start: 08-08-2023 ambulatory Sagar Barth APR N.BUTTON TUFTING MACHINE OPERATOR Work Phone: Neurology [facility] Comment on above: Injection Start: 07-10-2023 End: 07-10-2023 ambulatory Sagar Barth ASSISTANT PLANT MANAGER.BUTTON TUFTING MACHINE OPERATOR Work Phone: Neurology [facility] Comment on above: Intractable chronic migraine without aura and without status migrainosus (Primary Dx) Start: 07-10-2023 End: 07-10-2023 Telemedicine consultation with patient Sagar Barth APRN.BUTTON TUFTING MACHINE OPERATOR Work Phone: Neurology [facility] Start: 06-26-2023 ambulatory Ольга zazueta ASSISTANT PLANT MANAGER.BUTTON TUFTING MACHINE OPERATOR Work Phone: Neurology Comment on above: Concern Headache Start: 04-14-2023 End: 04-14-2023 ambulatory Infusion Main Chair 7 Work Phone: Neurology Comment on above: Chronic migraine wit hout aura, with intractable migraine, so stated, with status migrainosus (Primary Dx); Intractable chronic migraine without aura and with status migrainosus Start: 04-14-2023 End: 04-14-2023 Patient encounter procedure Suzan Ivey APRN.CNP Work Phone: Neurology Comment on above: [...] with status migrainosus Start: 04-12-2023 End: 04-12-2023 Patient encounter procedure Suzan Ivey APRN.CNP Work Phone: Neurology Comment on above: [...] Telephone encounter Angely rousseau RN Work Phone: [facility] Comment on above: Insurance Authorizat ion (Aimovig 70MG/ML auto-injectors/) Start: 12-13-2022 Refill Sagar Barth APR, N.CNP Work Phone: Neurology Headache [facility] Comment on above: Refill Request Infusion (HEADACHE I NFUSIONS) Start: 12-09-2022 Refill Ольга Arredondol marbin ASSISTANT PLANT MANAGER.BUTTON TUFTING MACHINE OPERATOR Work Phone: Neurology Comment on above: Refill Request Start: 11-11-2022 End: 11-11-2022 ambulatory Infusion Main Chair 8 Work Phone: Neurology Comment on above: Intractable chronic migraine without aura and with status migrainosus (Primary Dx) Start: 11-10-2022 End: 11-10-2022 ambulatory Ольга Aguilar ASSISTANT PLANT MANAGER.BUTTON TUFTING MACHINE OPERATOR Work Phone: Neurology Comment on above: Intractable chronic migraine without aura and with status migrainosus (Primary Dx) Nerve block Start: 11-10-2022 Telephone encounter Suzan dinero APRN.BUTTON TUFTING MACHINE OPERATOR Work Phone: Neurology Comment on above: Infusion Start: 11-10-2022 End: 11-10-2022 Telemedicine consultation with patient Ольга Aguilar ASSISTANT PLANT MANAGER.BUTTON TUFTING MACHINE OPERATOR Work Phone: [facility] Start: 10-12-2022 ambulatory Suzan boyle ASSISTANT PLANT MANAGER.BUTTON TUFTING MACHINE OPERATOR Work Phone: Neurology Comment on above: Botox Start: 10-12-2022 E-mail encounter alexus m caregiver Suzan Ivey APRN.CNP Work Phone: [facility] Start: 09-29-2022 Telephone encounter Angely rousseau RN Work Phone: [facility] Comment on above: Insurance Authorizat ion (Zomig 5MG nasal spray/) Start: 09-27-2022 ambulatory Sagar Barth APR N.BUTTON TUFTING MACHINE OPERATOR Work Phone: [facility]UR HEADACHE [facility] Comment on above: My apt Monday Start: 09-16-2022 ambulatory Sagar Barth APR N.BUTTON TUFTING MACHINE OPERATOR Work Phone: [facility] Start: 09-16-2022 Patient encounter procedure Sagar Barth APRN.BUTTON TUFTING MACHINE OPERATOR Work Phone: NEUR HEADACHE [facility] Comment on above: Appointment Start: 08-31-2022 End: 08-31-2022 ambulatory Sagar Tab ASSISTANT PLANT MANAGER.BUTTON TUFTING MACHINE OPERATOR Work Phone: Neurology Comment on above: Chronic migraine w/o aura, not intractable, w/o stat migr (Primary Dx) Start: 08-31-2022 End: 08-31-2022 Telemedicine consultation with patient Sagar Barth ASSISTANT PLANT MANAGER.BUTTON TUFTING MACHINE OPERATOR Work Phone: [facility] Start: 08-09-2022 ambulatory Sagar Green APR N.BUTTON TUFTING MACHINE OPERATOR Work Phone: NEUR HEADACHE [facility] Comment on above: Pain Start: 08-08-2022 [...] preprocedural examination DR ZAY BLAS . [facility] Start: 07-12-2022 End: 07-13-[address] ZAY BLAS . Facility:[facility] Start: 07-12-2022 End: 07-13-2022 Encounter for other preprocedural examination DR ZAY BLAS . Facility:[facility] Start: 07-05-2022 ambulatory KRISTOFER Nunn acility:[facility] Start: 06-27-2022 Telephone encounter Sagar aBrth APRN.BUTTON TUFTING MACHINE OPERATOR Work Phone: Neurology Comment on above: Appointment [...] MARY PAULINO . Facility:[facility] Start: 06-07-2022 ambulatory Jessecristiana rick MD Work Phone: Neurology Comment on [...] Neurology Comment on above: Request Didi castaneda tmefeli Start: 11-08-2021 ambulatory Tyrone Dolan MD, PhD [...] Evaluation and management of inpatient LUCILA MOTA [facility] Start: 10-19-2021 End: 10-20-2021 Evaluation and management of inpatient Lucila Mota MD Work Phone: [facility] 1B Neuro ICU Start: 10-19-2021 [...] preprocedural laboratory examination DR ZAY BLAS . [facility] Start: 09-29-2021 End: 09-30-[address] ZAY BLAS . Facility:[facility] Start: 09-29-2021 End: 09-30-2021 Encounter for preprocedural laboratory examination DR ZAY BLAS . Facility:[facility] Start: 09-21-2021 End: 09-22-[address] DERIK ARTHUR Facility:[facility] Start: 09-14-2021 End: 09-15-[address] DERIK ARTHUR Facility:[facility] Start: 08-14-2021 End: 08-14-2021 ambulatory ALBA GRACE Facility:[facility] Start: 08-14-2021 End: 08-14-2021 ambulatory ALBA LESLY Facility:[facility] Start: 12-24-2020 End: 12-24-2020 Emergency department patient visit [facility] Pamela ARTHUR [facility] Start: 12-24-2020 End: 12-24-2020 Emergency department patient visit Keven Ching DO Work Phone: [facility] ED Comment on above: Migraine without sta tus migrainosus, not intractable, unspecified migraine type (Primary Dx) Start: 02-18-2020 End: 02-18-2020 Telephone encounter Román Storey Work Phone: Neurology Comment on above: Future Appointment ( [place], [place], Any) Procedures Date Procedure Procedure Detail Performing Clinician Start: 07-24-2024 Adult depression scr eening assessment Halima Johns ASSISTANT PLANT MANAGER-BUTTON TUFTING MACHINE OPERATOR Work Phone: Start: 07-01-2024 Urnls dip stick/tabl et rgnt non-auto w/o micrscp Zay Blas DO Work Phone: Start: 04-25-2024 Adult depression scr eening assessment Corine Gold MD Work Phone: Start: 04-16-2024 IGP,APTIMA HPV,AGE GDLN Zayvikas Patelo DO Work Phone: Start: 04-10-2024 Comprehensive metabo [...] Work Phone: Start: 03-20-2024 PULMONARY FUNCTION TEST Vincent Peña DO Work Phone: Start: 01-31-2024 Bacteria identified in Urine by Culture Generic External Data Provider Start: 03-03-2022 Adult depression scr eening assessment Mundo Martinez MD Work Phone: Start: 10-29-2021 Adult depression scr eening assessment Tyrone Dolan MD, PhD Work Phone: Start: 10-20-2021 EEG VIDEO MONITORING Marcy Perez ASSISTANT PLANT MANAGER - BUTTON TUFTING MACHINE OPERATOR Work Phone: Start: 10-20-2021 BASIC METABOLIC PANE L W/ REFLEX TO MG FOR LOW K Puri Rikki Mota MD Work Phone: Start: 10-20-2021 Blood count complete auto&auto difrntl wbc Lo Perez ASSISTANT PLANT MANAGER - BUTTON TUFTING MACHINE OPERATOR Work Phone: Start: 10-20-2021 IMMATURE PLATELET FRACTION Lo Perez ASSISTANT PLANT MANAGER - BUTTON TUFTING MACHINE OPERATOR Work Phone: Start: 10-19-2021 Assay of lactate Uday Perez ASSISTANT PLANT MANAGER - BUTTON TUFTING MACHINE OPERATOR Work Phone: Start: 10-19-2021 Ecg routine ecg w/le ast 12 lds w/i&r Lo Perez ASSISTANT PLANT MANAGER - BUTTON TUFTING MACHINE OPERATOR Work Phone: Start: 10-19-2021 Mri brain brain stem w/o w/contrast material Lo Perez ASSISTANT PLANT MANAGER - BUTTON TUFTING MACHINE OPERATOR Work Phone: Start: 10-19-2021 RESPIRATORY CARE VERA LUATION ONLY Lo Perez ASSISTANT PLANT MANAGER - BUTTON TUFTING MACHINE OPERATOR Work Phone: Start: 10-01-2021 Resection of Bilater [...] Td Vaccines (7 - Td or Tdap) [facility] Start: 09-20-2025 DTaP/Tdap/Td vaccine (7 - Td or Tdap) DTaP/Tdap/Td vaccine (7 - Td or Tdap) [facility] Start: 09-20-2025 Urine microalbumin profile [facility] Start: 07-24-2025 Adult BMI Screening Adult BMI Screen ing [facility] Start: 07-24-2025 Depression Screening Depression Scre ening [facility] Start: 07-24-2025 Tobacco Screening Tobacco Screening [facility] Start: 06-06-2025 Tobacco Screening Tobacco Screening [facility] Start: 05-21-2025 Adult BMI Screening Adult BMI Screen ing [facility] Start: 05-21-2025 Tobacco Screening Tobacco Screening [facility] Start: 05-04-2025 Adult BMI Screening Adult BMI Screen ing [facility] Start: 05-04-2025 Tobacco Screening Tobacco Screening [facility] Start: 04-25-2025 Adult BMI Screening Adult BMI Screen ing [facility] Start: 04-25-2025 Depression Screening Depression Scre ening [facility] Start: 04-25-2025 Tobacco Screening Tobacco Screening [facility] Start: 04-24-2025 Adult BMI Screening Adult BMI Screen ing [facility] Start: 04-15-2025 Adult BMI Screening Adult BMI Screen ing [facility] Start: 04-08-2025 Depression Screening Depression Scre ening [facility] Start: 04-08-2025 Tobacco Screening Tobacco Screening [facility] Start: 03-28-2025 Adult BMI Screening Adult BMI Screen ing [facility] Start: 03-28-2025 Tobacco Screening Tobacco Screening [facility] Start: 03-25-2025 Adult BMI Screening Adult BMI Screen ing [facility] Start: 03-25-2025 Tobacco Screening Tobacco Screening [facility] Start: 03-20-2025 Adult BMI Screening Adult BMI Screen ing [facility] Start: 03-20-2025 Tobacco Screening Tobacco Screening [facility] Start: 03-18-2025 Adult BMI Screening Adult BMI Screen ing [facility] Start: 03-18-2025 Tobacco Screening Tobacco Screening [facility] Start: 10-25-2024 End: 10-25-2024 ambulatory 10/25/2024 1:30 PM EDT [facility] Neurology [address] [place] [address] [facility] Comment on above: [facility] Start: 10-21-2024 Influenza vaccination [facility] Start: 10-15-2024 End: 10-15-2024 Patient encounter procedure 10/15/2024 8:10 AM EDT Office Visit [facility] [address] [place] [address] Zay Blas DO [address] [place] [address] [facility] Start: 09-24-2024 End: 09-24-2024 ambulatory 09/24/2024 10:00 AM EDT [facility] Neurology [address] [place] [address] Curtis Lepe PA-C [address] [place] [address] Head ache control Neurology Comment on above: Head ache control Start: 09-03-2024 End: 09-03-2024 Patient encounter procedure 09/03/2024 10:20 AM EDT Office Visit [facility] [address] [facility] [place] [phone] Zay Blas DO [address] [facility] [place] [address] Arrived [facility] Comment on above: Arrived Start: 08-20-2024 End: 08-20-2024 Patient encounter procedure 08/20/2024 9:15 AM EDT Office Visit Neurology [address] [place] [address] Patricia Franco PA-C [address] [place] [address] INFUSION DAY 3 Neurology Comment on above: INFUSION DAY 3 Start: 08-20-2024 End: 08-20-2024 ambulatory 08/20/2024 9:00 AM EDT [facility] Neurology [address] [place] [address] NON-DHE 3 Neurology Comment on above: NON-DHE 3 Start: 08-19-2024 End: 08-19-2024 ambulatory 08/19/2024 9:00 AM EDT Infusion Center Neurology [address] [place] [address] NON-DHE 2 Neurology Comment on above: NON-DHE 2 Start: 08-19-2024 End: 08-19-2024 Patient encounter procedure 08/19/2024 9:00 AM EDT Office Visit Neurology [address] [place] [address] Raiza Morales, UMANG.BUTTON TUFTING MACHINE OPERATOR [address] [place] [address] Infusion day Neurology Comment on above: Infusion day Start: 08-02-2024 End: 08-02-2024 Patient encounter procedure 08/02/2024 11:00 AM EDT Office Visit Neurology [address] [place] [address] Curtis Lepe PA-C [address] [place] [address] INFUSION DAY 1 - PT ARRIVES AT 10AM Neurology Comment on above: INFUSION DAY 1 - PT ARRIVES AT 10AM Start: 08-02-2024 End: 08-02-2024 ambulatory 08/02/2024 10:00 AM EDT Infusion Center Neurology [address] [place] [address] NON-DHE 1 per PS Neurology Comment on above: NON-DHE 1 per PS Start: 07-25-2024 End: 07-25-2024 ambulatory 07/25/2024 1:00 PM EDT Infusion Center Neurology [address] [place] [address] [facility] Comment on above: [facility] Start: 07-01-2024 End: 07-01-2024 Patient encounter procedure 07/01/2024 8:30 AM EDT [facility] [address] [facility] [place] [phone] Zay Blas, [address], [facility] Arrived [facility] Comment on above: Arrived Start: 06-10-2024 End: 06-10-2025 DNA ISOLATION AND STORAGE DNA ISOLATION AND STORAGE Lab Routine Family history of genetic disorder Expected: 06/10/2024 (Approximate), Expires: 06/10/2025 [facility] Comment on above: Expected: 06/10/2024 (Approximate), Expires: 06/10/2025 Start: 06-10-2024 End: 06-10-2025 GENETICS SPECIMEN LABEL- REQUIRED FOR INHOUSE GENETIC TESTING GENETICS SPECIMEN LABEL- REQUIRED FOR INHOUSE GENETIC TESTING Lab Routine Family history of genetic disorder Expected: 06/10/2024 (Approximate), Expires: 06/10/2025 [facility] Work Phone: Comment on above: Expected: 06/10/2024 (Approximate), Expires: 06/10/2025 Start: 06-06-2024 End: 06-06-2024 Telemedicine consultation with patient 06/06/2024 4:30 PM EDT Telemedicine [facility] [address] [place] [phone] Corine Gold MD [address] [place] [address] [facility] Start: 05-28-2024 End: 05-28-2024 Patient encounter procedure 05/28/2024 1:00 PM EDT Office Visit [facility] [address] [phone] Vincent Peña DO [address] [address] [facility] Start: 05-14-2024 End: 05-14-2024 Patient encounter procedure 05/14/2024 9:00 AM EDT Office Visit [facility] - Medical Oncology [address] [place] [phone] Svetlana Ye PA [address] [place] [address] [facility] Start: 05-03-2024 End: 05-03-2024 ambulatory 05/03/2024 9:30 AM EDT [facility] Neurology [address] [place] [address] Curtis Lepe, PA-C [address] [place], [place] [id number] Head aches adding something else Neurology Comment on above: Head aches adding so mething else Start: 05-02-2024 End: 05-02-2024 ambulatory 05/02/2024 2:30 PM EDT Infusion Center Neurology [address] [address] [facility] infusion Neurology Comment on above: [facility] infusion Start: 04-30-2024 End: 04-30-2024 Patient encounter procedure 04/30/2024 9:00 AM EDT Office Visit [facility] - Medical Oncology [address] [place] [phone] Svetlana Ye PA [address] [place] [address] [facility] - Medical Oncology Start: 04-25-2024 End: 04-25-2024 Patient encounter procedure 04/25/2024 1:00 PM EST [facility] [address] [place] [phone] Corine Gold MD [address] [place], [place] [phone] [facility] Start: 04-16-2024 End: 04-16-2024 Patient encounter procedure 04/16/2024 8:30 AM EST Office Visit [facility] [address] [facility] [place] [phone] Zay Blas DO [address] [place] [address] [facility] Start: 04-15-2024 End: 04-15-2024 Patient encounter procedure 04/15/2024 9:00 AM EST Office Visit [facility], A Department of [facility] [address] [place] [address] Svetlana Ye PA [address] [place] [address] [facility] Gynecology Oncology, A Department of [facility] Start: 04-10-2024 End: 04-10-2024 Patient encounter procedure 04/10/2024 11:30 AM EST Office Visit [facility] - Medical Oncology [address] [place] [address] Svetlana Ye PA [address] [place] [address] [facility] - Medical Oncology Start: 04-10-2024 End: 04-10-2024 Professional / ancillary services management 04/10/2024 9:30 AM EST Ancillary Procedure [facility] [address] [place] [address] [place] [address] [facility] Start: 03-29-2024 End: 03-29-2024 ambulatory 03/29/2024 1:30 PM EST Infusion Center Neurology [address] [phone] [facility] Neurology Comment on above: [facility] infusion Start: 03-28-2024 End: 03-28-2024 Admission to same day surgery center 03/28/2024 9:00 AM EST - 03/28/2024 12:45 PM EST Surgery [facility] - Surgery [address] [place] [phone] Mundo Martinez MD [address] [facility] [place] [place] [address] DAVINCI LYSIS OF ADHESIONS [facility] - Surgery Comment on above: DAVINCI LYSIS OF ADH ESIONS Start: 03-28-2024 End: 03-28-2024 DAVINCI LYSIS OF ADHESIONS DAVINCI LYSIS OF ADHESIONS OVARIAN CYST BILATERAL 03/28/2024 9:00 AM EST [facility] Start: 03-28-2024 End: 03-28-2024 DAVINCI SALPINGO OOPHORECTOMY DAVINCI SALPINGO OOPHORECTOMY OVARIAN CYST BILATERAL 03/28/2024 9:00 AM EST [facility] Start: 03-28-2024 Subsequent hospital visit by physician 03/28/2024 9:00 AM EST Hospital Encounter [facility] [address] [place] [phone] Mundo Martinez MD [address] [place] [address] [facility] Start: 03-25-2024 End: 03-25-2024 Patient encounter procedure 03/25/2024 2:15 PM EST Procedure visit [facility] On [address] [phone] [facility] On [facility] Start: 03-22-2024 End: 03-22-2024 ambulatory 03/22/2024 1:30 PM EST Infusion Center Neurology [address] [phone] [facility] infusion Neurology Comment on above: [facility] infusion Start: 03-20-2024 End: 03-20-2025 CT Chest WO contrast CT chest without contrast Imaging Routine Moderate asthma with acute exacerbation, unspecified whether persistent Expected: 03/20/2024, Expires: 03/20/2025 [facility] Work Phone: Comment on above: Expected: 03/20/2024 , Expires: 03/20/2025 Start: 02-28-2024 End: 02-27-2025 AFP tumor marker AFP tumor marker Lab Routine Complex ovarian cyst Expected: 02/28/2024 (Approximate), Expires: 02/27/2025 [facility] Comment on above: Expected: 02/28/2024 (Approximate), Expires: 02/27/2025 Start: 02-28-2024 End: 02-27-2025 CA 125 CA 125 Lab Routine Complex ovarian cyst Expected: 02/28/2024 (Approximate), Expires: 02/27/2025 [facility] Comment on above: Expected: 02/28/2024 (Approximate), Expires: 02/27/2025 Start: 02-28-2024 End: 02-27-2025 Carcinoembryonic Ag [Mass/volume] in Serum or Plasma CEA Lab Routine Complex ovarian cyst Expected: 02/28/2024 (Approximate), Expires: 02/27/2025 [facility] Comment on above: Expected: 02/28/2024 (Approximate), Expires: 02/27/2025 Start: 02-28-2024 End: 02-27-2025 HCG, tumor marker HCG, tumor marker Lab Routine Complex ovarian cyst Expected: 02/28/2024 (Approximate), Expires: 02/27/2025 [facility] Comment on above: Expected: 02/28/2024 (Approximate), Expires: 02/27/2025 Start: 02-28-2024 End: 02-27-2025 Lactate dehydrogenase, isoenzymes Lactate dehydrogenase, isoenzymes Lab Routine Complex ovarian cyst Expected: 02/28/2024 (Approximate), Expires: 02/27/2025 [facility] Work Phone: Comment on above: Expected: 02/28/2024 (Approximate), Expires: 02/27/2025 Start: 02-28-2024 End: 02-27-2025 US Pelvis US Pelvis w/ TV Imaging Routine Pelvic pain in female Complex ovarian cyst Expected: 02/28/2024, Expires: 02/27/2025 [facility] Comment on above: Expected: 02/28/2024 , Expires: 02/27/2025 Start: 02-28-2024 End: 02-28-2024 Patient encounter procedure 02/28/2024 11:10 AM EST Office Visit [facility] OB [address] [facility] [place] [phone] Zay Blas DO [address] [place] [address] [facility] Start: 02-22-2024 End: 02-22-2024 Patient encounter procedure 02/22/2024 11:15 AM EST Office Visit [facility] [address] [place] [address] Lamont Shay MD [address] [place] [address] [facility] Start: 02-09-2024 End: 02-08-2025 CT Abdomen and Pelvis WO and W contrast IV CT abdomen pelvis w and wo IV contrast Imaging Routine Generalized abdominal pain Intractable nausea and vomiting Expected: 02/09/2024, Expires: 02/08/2025 [facility] Work Phone: Comment on above: Expected: 02/09/2024 , Expires: 02/08/2025 Start: 02-05-2024 End: 02-05-2024 ambulatory 02/05/2024 1:45 PM EST [facility] Neurology Headache [facility] [address] [place] [address] Sagar Barth APRN.BUTTON TUFTING MACHINE OPERATOR [address] [place] [address] [facility] Comment on above: [facility] Start: 01-24-2024 End: 01-24-2024 Patient encounter procedure 01/24/2024 3:20 PM EST Office Visit [facility] [address] [facility] [place] [address] Zay Blas DO [address] [facility] [place] [address] [facility] Start: 01-23-2024 End: 01-22-2025 Basic metabolic 1998 panel - Serum or Plasma Basic metabolic panel Lab Routine Generalized edema Expected: 01/23/2024 (Approximate), Expires: 01/22/2025 [facility] Comment on above: Expected: 01/23/2024 (Approximate), Expires: 01/22/2025 Start: 01-23-2024 End: 01-22-2025 CBC W Auto Differential panel - Blood CBC and differential Lab Routine Generalized edema SOB (shortness of breath) on exertion Expected: 01/23/2024 (Approximate), Expires: 01/22/2025 [facility] Comment on above: Expected: 01/23/2024 (Approximate), Expires: 01/22/2025 Start: 01-23-2024 End: 01-22-2025 Hepatic function 2000 panel - Serum or Plasma Hepatic function panel Lab Routine Generalized edema SOB (shortness of breath) on exertion Expected: 01/23/2024 (Approximate), Expires: 01/22/2025 [facility] Comment on above: Expected: 01/23/2024 (Approximate), Expires: 01/22/2025 Start: 01-23-2024 End: 01-22-2025 Natriuretic peptide B [Mass/volume] in Blood B-type natriuretic peptide Lab Routine Generalized edema Expected: 01/23/2024 (Approximate), Expires: 01/22/2025 [facility] Comment on above: Expected: 01/23/2024 (Approximate), Expires: 01/22/2025 Start: 01-23-2024 End: 01-22-2025 XR Chest 2 Views XR chest 2 views Imaging Routine Mild persistent asthma with (acute) exacerbation (CMS/HCC) Generalized edema SOB (shortness of breath) on exertion Expected: 01/23/2024, Expires: 01/22/2025 [facility] Work Phone: Comment on above: Expected: 01/23/2024 , Expires: 01/22/2025 Start: 01-23-2024 End: 01-23-2024 Patient encounter procedure [facility] FM Comment on above: Arrived Start: 01-22-2024 End: 01-22-2024 Patient encounter procedure 01/22/2024 2:30 PM EST Office Visit Neurology [address] [place] [address] Raiza Morales APRN.BUTTON TUFTING MACHINE OPERATOR [address] [place] [address] Infusion Day #3 Neurology Comment on above: Infusion Day #3 Start: 01-22-2024 End: 01-22-2024 ambulatory 01/22/2024 2:00 PM EST Infusion Center Neurology [address] [place] [address] Non-D[facility] Infusion Day #3 Neurology Comment on above: Non-DHE Infusion Day #3 Start: 01-19-2024 End: 01-19-2024 ambulatory 01/19/2024 9:30 AM EST Infusion Center Neurology [address] [place] [address] Non-[facility] Infusion Day #2 Neurology Comment on above: Non-DHE Infusion Day #2 Start: 01-09-2024 End: 01-09-2024 Patient encounter procedure [facility] Comment on above: Arrived Start: 01-05-2024 End: 01-05-2024 ambulatory 01/05/2024 1:00 PM EST Infusion Center Neurology [address] [place] [address] [facility] Comment on above: [facility] Start: 12-12-2023 End: 12-12-2023 Patient encounter procedure 12/12/2023 3:45 PM EDT Office Visit [facility] [address] [place] [address] Lamont Shay MD [address] [place] [address] [facility] Start: 12-11-2023 End: 12-11-2023 Patient encounter procedure 12/11/2023 1:00 PM EDT Office Visit [facility] [address] [place] [phone] Zay Blas DO [address] [place], [place] [phone] Arrived [facility] Comment on above: Arrived Start: 11-15-2023 End: 11-15-2023 Patient encounter procedure 11/15/2023 8:45 AM EDT Office Visit [facility] [address] [place] [address] Lamont Shay MD [address] [place] [phone] Arrived [facility] Comment on above: Arrived Start: 11-06-2023 End: 11-06-2023 Patient encounter procedure 11/06/2023 11:30 AM EDT Office Visit [facility] [address] [place] [address] Jose Martin Lopez MD [address] [facility] [address] [phone] [facility] Start: 10-31-2023 End: 10-31-2023 Patient encounter procedure 10/31/2023 2:30 PM EDT Office Visit Neurology [address] [phone] Tyrone Dolan MD, PhD [address] [facility] [address] [place], [place] [phone] Seizure Neurology Comment on above: Seizure Start: 10-22-2023 Covid-19 Vaccine ( season) Covid-19 Vaccine ( season) [facility] Start: 10-22-2023 Covid-19 Vaccine ( season) Covid-19 Vaccine ( season) [facility] Start: 10-22-2023 Influenza vaccination C [facility] Start: 10-13-2023 End: 10-13-2023 ambulatory 10/13/2023 1:00 PM EDT Infusion Center Neurology [address] [phone] [facility] Neurology Comment on above: [facility] Start: 10-10-2023 End: 10-10-2023 Patient encounter procedure 10/10/2023 9:15 AM EDT Office Visit [facility] [address] [place] [address] Lamont Shay MD [address] [place] [address] Arrived [facility] Comment on above: Arrived Start: 09-19-2023 End: 09-19-2023 Patient encounter procedure 09/19/2023 2:30 PM EDT Office Visit Neurology [facility] [address] [place] [address] Sagar Barth APRN.BUTTON TUFTING MACHINE OPERATOR [address] [place] [address] Migraines Nerve Block Neurology [facility] Comment on above: Migraines Nerve Bloc k Start: 08-18-2023 End: 08-18-2023 Patient encounter procedure 08/18/2023 9:30 AM EDT Office Visit Neurology [address] [place] [address] Curtis Lepe PA-C [address] [place] [address] NERVE BLOCK Neurology Comment on above: NERVE BLOCK Start: 03-03-2023 Depression Screening Depression Scre [facility] Start: 02-20-2023 [facility] Start: 10-29-2022 Adult depression scr eening assessment DEPRESSION SCREENING [facility] Start: 10-21-2022 Covid-19 Vaccine ( season) Covid-19 Vaccine ( season) [facility] Start: 10-21-2022 Influenza vaccination C [facility] Start: 02-20-2022 [facility] Start: 10-26-2021 End: 10-26-2022 SARS-CoV-2 (COVID-19) RNA [Presence] in Respiratory specimen by SAURABH with probe detection PRE-PROCEDURE & PRE-OPERATIVE COVID Microbiology Routine Seizure-like activity (HCC) Expected: 10/26/2021, Expires: 10/26/2022 [facility] Work Phone: Comment on above: Expected: 10/26/2021 , Expires: 10/26/2022 Start: 10-21-2021 Influenza vaccination B [facility] Start: 02-20-2021 DEPRESSION ASSESSMENT DEPRESSION ASS ESSMENT [facility] Start: 10-21-2020 Influenza vaccination Flu vaccine (# 1) [facility] Phone: Start: 11-13-2016 PAP TESTING PAP TESTING [facility] Start: 11-13-2016 Screening for malign ant neoplasm of cervix [facility] Start: 11-13-2014 Hepatitis B Vaccine (1 of 3 - 19+ 3-dose series) Hepatitis B Vaccine (1 of 3 - 19+ 3-dose series) [facility] Start: 11-13-2014 Urine microalbumin profile [facility] Start: 11-13-2013 Adult BMI Follow Up Plan Adult BMI Follow Up Plan [facility] Start: 11-13-2013 Anxiety Screening Anxiety Screening [facility] Start: 11-13-2013 Depression Screening Depression Scre ening [facility] Start: 11-13-2013 Hepatitis C screening [facility] Start: 11-13-2013 HEPATITIS C SCREENING HEPATITIS C SC REENING [facility] Start: 11-13-2013 HIV SCREENING HIV SCREENING [facility] Start: 11-13-2013 HIV screening HIV Screening [facility] Start: 2011 Screening for Chlamy rose trachomatis Chlamydia screen [facility] Start: 11-13-2010 HIV screening HIV screen [facility] Start: 11-13-2009 PEDS TO ADULT TRANSI TION ANNUAL ASSESSMENT PEDS TO ADULT TRANSITION ANNUAL ASSESSMENT [facility] Start: 11-13-2008 Varicella Vaccine (1 of 2 - 13+ 2-dose series) Varicella Vaccine (1 of 2 - 13+ 2-dose series) [facility] Start: 2007 Adult depression scr eening assessment DEPRESSION SCREENING [facility] Start: 2007 COVID-19 Vaccine (1) COVID-19 Vaccin e (1) [facility] Phone: Start: 2007 Depression Screen Depression Screen [facility] Start: 2007 PEDS TO ADULT TRANSI TION INITIAL DISCUSSION PEDS TO ADULT TRANSITION INITIAL DISCUSSION [facility] Start: 11-13-2006 HPV VACCINE (1 - 2-d ose series) HPV VACCINE (1 - 2-dose series) [facility] Start: 11-13-2004 HPV VACCINE (1 - 2-d ose series) HPV VACCINE (1 - 2-dose series) [facility] Start: 11-13-2002 DTaP/Tdap/Td Vaccine (1 - Tdap) DTaP/Tdap/Td Vaccine (1 - Tdap) [facility] Start: 11-13-1996 MMR Vaccine (1 of 1 - Standard series) MMR Vaccine (1 of 1 - Standard series) [facility] Start: 05-13-1996 COVID-19 Vaccine (#1) COVID-19 Vacci ne (#1) [facility] Start: 1995 HEPATITIS B (1 of 3 - 3-dose series) HEPATITIS B (1 of 3 - 3-dose series) [facility] Start: 1995 Hepatitis B Vaccine (1 of 3 - 3-dose series) Hepatitis B Vaccine (1 of 3 - 3-dose series) [facility] Start: 1995 Hepatitis C screening Hepatitis C [facility] Work Phone: End: 03-20-2025 Wcqer-1-Vptrqlrzcaf Phenotype Otdof-7-Yqkqltmeyhx Phenotype Lab Routine Moderate asthma with acute exacerbation, unspecified whether persistent 1 Occurrences starting 03/20/2024 until 03/20/2025 SMS Assist Comment on above: 1 Occurrences starti ng 03/20/2024 until 03/20/2025 Ikqoc-3-Gpnmoawimtc Phenotype Wdwbz-2-Cbjtzjvnkcm Phenotype Lab Routine Moderate asthma with acute exacerbation, unspecified whether persistent 03/20/2024 1:12 PM EST SMS Assist Bacteria identified in Blood by [employer] culture [employer] Work Phone: Bacteria identified in Urine by Culture URINE CULTURE, ROUTINE Lab Routine 01/31/2024 11:57 AM EST [facility] Bacteria identified in Wound by Aerobe culture Wound culture superficial includes gram stain Microbiology Routine 04/08/2024 8:25 PM EST [employer] Work Phone: End: 10-26-2021 Basic Metabolic Panel w/ Reflex to MG Basic Metabolic Panel w/ Reflex to MG Lab Routine Daily for 7 Days starting 10/20/2021 until 10/26/2021 [facility] Work Phone: Comment on above: Daily for 7 Days sta rting 10/20/2021 until 10/26/2021 End: 10-26-2021 CBC W Auto Differential panel - Blood CBC with Auto Differential Lab Routine Daily for 7 Days starting 10/20/2021 until 10/26/2021, 1 completed [facility] Work Phone: Comment on above: Daily for 7 Days sta rting 10/20/2021 until 10/26/2021, 1 completed End: 05-02-2025 CBC W Auto Differential panel - Blood CBC with auto diff Lab Routine Postoperative infection, unspecified type, subsequent encounter 1 Occurrences starting 05/02/2024 until 05/02/2025 [employer] Phone: Comment on above: 1 Occurrences starti ng 05/02/2024 until 05/02/2025 CHLAMYDIA TRACHOMATI S (GENITO/STI) CHLAMYDIA TRACHOMATIS (GENITO/STI) Lab Routine Yeast infection Ordered: 07/01/2024 [facility] Comment on above: Ordered: 07/01/2024 End: 05-02-2025 Comprehensive metabolic 2000 panel - Serum or Plasma Comprehensive metabolic panel Lab Routine Postoperative infection, unspecified type, subsequent encounter 1 Occurrences starting 05/02/2024 until 05/02/2025 [facility] Comment on above: 1 Occurrences starti ng 05/02/2024 until 05/02/2025 Cytology Cervical or vaginal smear or scraping study Pap Smear Pathology and Cytology Routine Well woman exam with routine gynecological exam Ordered: 04/16/2024 [employer] Work Phone: Comment on above: Ordered: 04/16/2024 End: 03-19-2025 ECG 12 lead ECG 12 lead ECG Routine Bilateral ovarian cysts Preop testing 1 Occurrences starting 03/19/2024 until 03/19/2025 [employer] Phone: Comment on above: 1 Occurrences starti ng 03/19/2024 until 03/19/2025 EKG 12 Lead EKG 12 Lead ECG Routine 10/19/2021 5:55 PM EDT [facility] Work Phone: End: 10-29-2022 EPIL AMBULATORY EEG [facility] AMBULATORY EEG NEUROLOGY Routine Psychogenic nonepileptic seizure Spells of trembling 1 Occurrences starting 10/29/2021 until 10/29/2022 [facility] Work Phone: Comment on above: 1 Occurrences starti ng 10/29/2021 until 10/29/2022 End: 10-26-2022 EPIL EEG LEAD PLACEMENT EPIL EEG LEAD PLACEMENT NEUROLOGY Routine Seizure-like activity (HCC) 1 Occurrences starting 10/26/2021 until 10/26/2022 [facility] Work Phone: Comment on above: 1 Occurrences starti ng 10/26/2021 until 10/26/2022 End: 11-08-2022 EPIL EEG ROUTINE EPIL EEG ROUTINE NEUROLOGY Routine Seizure-like activity (HCC) 1 Occurrences starting 11/08/2021 until 11/08/2022 [facility] Work Phone: Comment on above: 1 Occurrences starti ng 11/08/2021 until 11/08/2022 EPIL VEEG ADMIT TO EMU/PMU EPIL VEEG ADMIT TO EMU/PMU NEUROLOGY Routine Seizure-like activity (HCC) Ordered: 10/26/2021 [facility] Work Phone: Comment on above: Ordered: 10/26/2021 Neisseria gonorrhoea e DNA [Presence] in Unspecified specimen by SAURABH with probe detection Neisseria gonorrhea DNA probe, direct Lab Routine Yeast infection Ordered: 07/01/2024 [facility] Comment on above: Ordered: 07/01/2024 Oxygen therapy [[facility] Data Set] Initiate Oxygen Therapy Protocol Respiratory Care Routine As Needed until discontinued starting 10/19/2021 [facility] Work Phone: Comment on above: As Needed until disc ontinued starting 10/19/2021 SURESWAB(R) ADVANCED VAGINITIS PLUS, TMA SURESWAB(R) ADVANCED VAGINITIS PLUS, TMA Pathology and Cytology Routine Yeast infection Ordered: 07/01/2024 [facility] Work Phone: Comment on above: Ordered: 07/01/2024 End: 03-19-2025 Type and screen(includes indirect ady) Type and screen(includes indirect ady) Blood Bank Routine Bilateral ovarian cysts Preop testing 1 Occurrences starting 03/19/2024 until 03/19/2025 [facility] Comment on above: 1 Occurrences starti ng 03/19/2024 until 03/19/2025 [facility] Immunizations Immunization Date Immunization Notes Care Provider Preethi dick 12-08-2017 Influenza, injectabl e, Madin Shivani Canine Kidney, preservative free, quadrivalent Mundo Martinez MD Work Phone: [facility] 12-08-2017 influenza virus vacc ine, unspecified formulation Suzan Ivey ASSISTANT PLANT MANAGERMarisolBUTTON TUFTING MACHINE OPERATOR Work Phone: [facility] 12-31-2015 influenza, seasonal, injectable, preservative free Mundo Martinez MD Work Phone: [facility] 12-31-2015 influenza virus vacc ine, unspecified formulation Viktoria Walton MS, [facility] Work Phone: [facility] 09-21-2015 tetanus toxoid, redu ailyn diphtheria toxoid, and acellular pertussis vaccine, adsorbed Mundo Martinez MD Work Phone: [facility] 11-27-2014 influenza, seasonal, injectable, preservative free Mundo Martinez MD Work Phone: [facility] 10-23-2012 influenza, seasonal, injectable, preservative free Mundo Martinez MD Work Phone: [facility] 05-22-2012 human papilloma viru s vaccine, quadrivalent Anjalika Martinez MD Work Phone: [facility] 01-20-2012 human papilloma viru s vaccine, quadrivalent Mundo Martinez MD Work Phone: [facility] 11-15-2011 human papilloma viru s vaccine, quadrivalent Mundo Martinez MD Work Phone: [facility] 11-15-2011 influenza, seasonal, injectable, preservative free Mundo Martinez MD Work Phone: [facility] 11-15-2011 meningococcal polysaccharide (groups A, C, Y and W-135) diphtheria toxoid conjugate vaccine (MCV4P) Mundo Martinez MD Work Phone: [facility] 11-15-2011 varicella virus vaccine Eloina Martinez MD Work Phone: [facility] 10-25-2002 hepatitis B vaccine, pediatric or pediatric/adolescent dosage Mundo Martinez MD Work Phone: [facility] 10-25-2002 varicella virus vaccine Eloina Martinez MD Work Phone: [facility] 09-07-2001 diphtheria, tetanus toxoids and acellular pertussis vaccine Mundo Martinez MD Work Phone: [facility] 09-07-2001 measles, mumps and rubella virus vaccine Mundo Martinez MD Work Phone: [facility] 09-07-2001 poliovirus vaccine, inactivated Mundo Martinez MD Work Phone: [facility] 03-05-1997 diphtheria, tetanus toxoids and acellular pertussis vaccine, Haemophilus influenzae type b conjugate, and poliovirus vaccine, inactivated ([id number]) Mundo Martinez MD Work Phone: [facility] 03-05-1997 measles, mumps and rubella virus vaccine Mundo Martinez MD Work Phone: [facility] 07-05-1996 diphtheria, tetanus toxoids and acellular pertussis vaccine, Haemophilus influenzae type b conjugate, and poliovirus vaccine, inactivated ([id number]) Mundo Martinez MD Work Phone: [facility] 05-06-1996 diphtheria, tetanus toxoids and acellular pertussis vaccine, Haemophilus influenzae type b conjugate, and poliovirus vaccine, inactivated ([id number]) Mundo Martinez MD Work Phone: [facility] 05-06-1996 hepatitis B vaccine, pediatric or pediatric/adolescent dosage Mundo Martinez MD Work Phone: [facility] 01-15-1996 diphtheria, tetanus toxoids and acellular pertussis vaccine, Haemophilus influenzae type b conjugate, and poliovirus vaccine, inactivated ([id number]) Mundo Martinez MD Work Phone: [facility] 1995 hepatitis B vaccine, pediatric or pediatric/adolescent dosage Mundo Martinez MD Work Phone: [facility] 1995 hepatitis B vaccine, pediatric or pediatric/adolescent dosage Mundo Martinez MD Work Phone: [facility] Payers Date Payer Category Payer Medicaid (Managed Care) [employer] [id number] 2022 Self-pay 2017 Medicaid [employer] [employer] [employer] [id number] 2017-Present Medicaid [id number] [facility] MEDICAID [id number] 2013 Medicaid [id number] 1.13.159.2. [id number] 2011 Unknown 1995 Unknown [id number] 2.16.840.1.062951.3.579.2. 173 1995 Unknown [id number] 2.16.840.1.323325.3.579.2. 175 1995 Unknown [id number] 2.16.840.1.593610.3.579.2. 727 1995 Unknown [id number] 2.16.840.1.555580.3.579.2. 593 1995 Unknown [id number] 2.16.840.1.620032.3.579.2. 593 1995 Unknown [id number] 2.16.840.1.833644.3.579.2. 593 1995 Unknown [id number] 2.16.840.1.782432.3.579.2. 593 1995 Unknown [id number] 2.16.840.1.034221.3.579.2. 593 1995 Unknown [id number] 2.16.840.1.544498.3.579.2. 593 1995 Unknown [id number] 2.16.840.1.961038.3.579.2. 593 1995 Unknown [id number] 2.16.840.1.534762.3.579.2. 593 1995 Unknown [id number] 2.16.840.1.194474.3.579.2. 593 1995 Unknown [id number] 2.16.840.1.377062.3.579.2. 593 1995 Unknown [id number] 2.16.840.1.127750.3.579.2. 593 1995 Unknown [id number] 2.16.840.1.092775.3.579.2. 593 1995 Unknown [id number] 2.16.840.1.805322.3.579.2. 593 1995 Unknown [id number] 2.16.840.1.536336.3.579.2. 593 1995 Unknown [id number] 2.16.840.1.371833.3.579.2. 593 1995 Unknown [id number] 2.16.840.1.261631.3.579.2. 593 1995 Unknown [id number] 2.16.840.1.073186.3.579.2. 593 1995 Unknown [id number] 2.16.840.1.322429.3.579.2. 593 1995 Unknown [id number] 2.16.840.1.844612.3.579.2. 593 1995 Unknown [id number] 2.16.840.1.764477.3.579.2. 593 1995 Unknown [id number] 2.16.840.1.486921.3.579.2. 593 1995 Unknown [id number] 2.16.840.1.033120.3.579.2. 593 1995 Unknown [id number] 2.16.840.1.613867.3.579.2. 1258 1995 Unknown [id number] 2.16.840.1.131358.3.579.2. 1258 1995 Unknown [id number] 2.16.840.1.429895.3.579.2. 1258 1995 Unknown [id number] 2.16840.1.058068.3.579.2. 1258 1995 Unknown [id number] 2.16840.1.604221.3.579.2. 1258 1995 Unknown [id number] 2.840.1.496428.3.579.2. 1258 1995 Unknown [id number] 2.16840.1.403186.3.579.2. 1258 1995 Unknown [id number] 2.16840.1.213570.3.579.2. 1258 1995 Unknown [id number] 2.16840.1.433791.3.579.2. 1258 1995 Unknown [id number] 2.16840.1.888869.3.579.2. 1258 1995 Unknown [id number] 2.16.840.1.542793.3.579.2. 1258 1995 Unknown [id number] 2.16.840.1.431323.3.579.2. 1258 1995 Unknown [id number] 2.16.840.1.049853.3.579.2. 125 1959 Unknown [id number] 1.2.840.891514.1.13.239.2. 7.3.355285.315 Unknown [id number] 2.16.840.1.471038.3.579.2. 531 Social History Date Type Detail Facility Tobacco smoking stat [facility] Unknown if ever smoked [facility] Start: 1995 Sex Assigned At Not on file [facility] Start: 12-24-2020 End: 08-21-2023 Tobacco smoking status NHIS Never smoker [facility] Phone: Start: 12-24-2020 End: 08-21-2023 Tobacco use and exposure Never used [email or web address] Start: 12-24-2020 End: 07-24-2024 Alcohol intake Ex-drinker (finding) [facility] Phone: Start: 10-16-2021 End: 07-28-2022 Exposure to SARS-CoV-2 (event) Not sure [facility] Tobacco smoking stat [facility] Tobacco smoking consumption unknown [facility] Work Phone: Start: 08-08-2022 End: 01-23-2024 History of Social function [facility] Start: 08-08-2022 End: 01-23-2024 Patient Health Questionnaire 2 item (PHQ-2) [Reported] [facility] Adult Depression Screening Assessment 2 [facility] Start: 11-15-2023 End: 07-01-2024 Alcoholic beverage intake Lifetime non-drinker (finding) [facility] Start: 07-31-2022 Alcohol Comment Caffeine intak e: >4 cups per day [facility] Do you belong to any clubs or organizations such as taoism groups, unions, fraternal or athletic groups, or [...] [facility] Start: 09-25-2014 Sex Female (finding) [facility] How often to you hav e a drink containing alcohol? Monthly or less [facility] How many standard drinks containing alcohol do you have on a typical day? 1 or 2 [facility] Start: 04-08-2024 Alcohol Comment social [facility] NEGATED: Highlighted rowStart: NINF History of tobacco use Passive smoker [facility] Healthcare Goals Date Patient Goal Desired Activity /State Personal health goal Comment on above: Formatting of this n ote might be different from the original. Evaluation of progress towards goal: Patient stated goal is to return home with [facility] for assistance with wound care Functional Status Date Assessment Result Facility 04-01-2022 Are you deaf, or do you have serious difficulty hearing No 04/01/2022 6:20 PM Katie Florez RN No [facility] 04-01-2022 Are you blind, or do you have serious difficulty seeing, even when wearing glasses No 04/01/2022 6:20 PM Katie Florez, PRATIBHA No [facility] 04-01-2022 Do you have serious difficulty walking or climbing stairs No 04/01/2022 6:20 PM Katie Florez, PRTAIBHA No [facility] 04-01-2022 Do you have difficul ty dressing or bathing No 04/01/2022 6:20 PM Katie Florez, PRATIBHA No [facility] 04-01-2022 Because of a physica l, mental, or emotional condition, do you have difficulty doing errands alone such as visiting a physician's office or shopping No 04/01/2022 6:20 PM Katie Florez, PRATIBHA No [facility] Mental Status Date Assessment Result Facility 04-01-2022 Because of a physica l, mental, or emotional condition, do you have serious difficulty concentrating, remembering, or making decisions No 04/01/2022 6:20 PM Katie Florez, PRATIBHA No [facility] Clinical Notes 12-24-2020 to 09-03-2024 Yumiko Worrell, DESIGN CELL ENGINEER - 09/03/2024 10:20 AM EDTTelephone Encounter - [facility] - 08/26/2024 9:19 AM EDTTelephone Encounter - [facility] - 08/26/2024 9:19 AM EDTPatient InstructionsPatient Instructions Note Date & Type Note Facility 09-03-2024 History of Present illness Narrative Reason for Appointment: Patient ID: Sandie Nicholson is a 28 y.o. female who presents for Discuss Hormones Patient presents today for Acute Visit. MEDICATIONS Current Outpatient Medications Medication Instructions Acetaminophen Extra Strength 500 mg, Every 6 hours PRN albuterol HFA 90 mcg/act inhaler 2 puffs, Every 4 hours PRN albuterol 2.5 mg, 4 times daily PRN amitriptyline (ELAVIL) 100 mg, Nightly baclofen (LIORESAL) 10 mg, Nightly carBAMazepine XR (TEGRETOL XR) 100 mg, 2 times daily chlorzoxazone (PARAFON FORTE) 500 mg, 2 times daily PRN diazePAM (VALIUM) 10 mg, Every 24 hours estradiol (ESTRACE) 1 mg, Oral, Daily RT fluticasone (Flonase) 50 MCG/ACT nasal spray 1 spray, Daily ibuprofen 800 mg, Every 6 hours PRN ketoconazole (NIZOral) 2 % shampoo 1 Application, 2 times weekly ketorolac (TORADOL) 10 mg, Every 8 hours PRN loratadine (CLARITIN) 10 mg, Daily PRN omeprazole (PRILOSEC) 40 mg, Daily ondansetron ODT (ZOFRAN-ODT) 4 mg, Every 6 hours PRN progesterone (PROMETRIUM) 100 mg, Oral, Daily promethazine (PHENERGAN) 25 mg, Every 6 hours PRN scopolamine (Transderm-Scop) 1 mg/72 hr patch 72 hour patch 1 patch, Every 72 hours trimethoprim-polymyxin b (Polytrim) ophthalmic solution Ubrelvy 100 mg, As needed ALLERGIES Allergies Allergen Reactions Dihydroergotamine GI intolerance [...] in female 12/19/2022 Mixed bipolar I disorder (HCC) 01/24/2023 Chronic migraine without aura without status migrainosus, not intractable 01/24/2023 Generalized anxiety disorder 01/24/2023 Persistent disorder of initiating or maintaining sleep 01/24/2023 Mild persistent asthma (HCC) 01/24/2023 Polycystic ovaries 01/24/2023 Psychogenic nonepileptic seizure 01/24/2023 Class 3 severe obesity due to excess calories without serious comorbidity with body mass index (BMI) of 50.0 to 59.9 in adult ([facility]) 03/21/2023 Mild persistent asthma with (acute) exacerbation ([facility]) 10/10/2023 Fatigue 01/01/2024 Encounter for long-term (current) [...] Acute exacerbation of asthma with allergic rhinitis ([facility]) Allergies Asthma ([facility]) At low risk for fall Bipolar affective, mixed ([facility]) Change in blood pressure Cholecystitis 2008 Depressive disorder OMID (generalized anxiety disorder) History of hysterectomy 10/01/2021 Insomnia, persistent Migraines Mild persistent asthma without complication ([facility]) Morbid obesity with BMI of 40.0-44.9, adult ([facility]) PCOS (polycystic ovarian syndrome) Right otitis media Seizures ([facility]) HISTORY PAST MEDICAL HISTORY SOCIAL HISTORY Past Medical History: Diagnosis Date Acute exacerbation of asthma with allergic rhinitis (HCC) Allergies Asthma ([facility]) At low risk for fall Bipolar affective, mixed ([facility]) Change in blood pressure high and low Cholecystitis 2008 Chronic migraine without aura without status migrainosus, not intractable Depressive disorder OMID (generalized anxiety disorder) History of hysterectomy 10/01/2021 Insomnia, persistent Migraines Mild persistent asthma without complication (HCC) Morbid obesity with BMI of 40.0-44.9, adult ([facility]) PCOS (polycystic ovarian syndrome) Psychogenic nonepileptic seizure Right otitis media Seizures (HCC) stressed induced Social History Tobacco Use Smoking [...] nursing note reviewed. Exam conducted with a pencil sorter present. Vitals: Estimated body mass index is 50.73 kg/m as calculated from the following: Height as of 24: 5' 1 . Weight as of this encounter: 268 lb 8 oz. BP: (!) 136/100 No LMP recorded. Patient has had a hysterectomy. ASSESSMENT & PLAN ICD-10-CM 1. 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 Pt to start micronized progesterone. Rx for prometrium faxed to pharmacy. Discussed combo med- for future, telehealth in 6 weeks. Documented by Yumiko Worrell LPN on behalf of: Zay Blas DO documented in this encounter [facility] 08-26-2024 Miscellaneous Notes With Provider: VINCENT PEÑA [[facility]] Preferred Date Range: 08/27/2024 - 09/07/2024 Preferred Times: Any Reason for Visit: Same Day Comments: Asthma and allergy flareup documented in this encounter [facility] 08-26-2024 Telephone encounter Note With Provider: VINCENT PEÑA [[facility]] Preferred Date Range: 08/27/2024 - 09/07/2024 Preferred Times: Any Reason for Visit: Same Day Comments: Asthma and allergy flareup [facility] 08-19-2024 Telephone encounter Note Called patient since she no-showed for infusions today. Patient is going to cancel her infusions because she is headache free at the moment. She does want to know what to do if her headaches come back. Forwarding message to provider [facility] 08-19-2024 Miscellaneous Notes Called patient since she no-showed for infusions today. Patient is going to cancel her infusions because she is headache free at the moment. She does want to know what to do if her headaches come back. Forwarding message to provider documented in this encounter [facility] 08-16-2024 Telephone encounter Note Patient last infusion was on 08/02 and only had one day. Routing to provider to see if she can come in [facility] 08-16-2024 Miscellaneous Notes Patient last infusion was on 08/02 and only had one day. Routing to provider to see if she can come in Forwarded to infusion team, provider and M[facility]za MYC message sent to patient or clarification documented in this encounter [facility] 08-16-2024 Telephone encounter Note Forwarded to infusion team, provider and Mendoza [facility] 08-16-2024 Telephone encounter Note MYC message sent to patient or clarification [facility] 08-06-2024 Telephone encounter Note Ambulatory Pharmacy Prior Authorization Note Provider Intervention Required?: No - Pharmacy completed on your behalf. Was the PA documented within the ePA workqueue?: No Rx Plan: Medicaid [facility] ([facility]) Drug: Zavzpret 10MG/ACT solution Cover My Meds Chong: [id number] Determination: Approved Prior Authorization/Case #: [id number] Prior Authorization Expiration: 01/31/2025 Time to PA Submission in CMM: 15 [...] refills. Prescriptions will now be processed through [facility] for determination of next steps. For questions relating to this submission, please contact [facility] at [phone] [facility] 08-06-2024 Miscellaneous Notes Ambulatory Pharmacy Prior Authorization Note Provider Intervention Required?: No - Pharmacy completed on your behalf. Was the PA documented within the ePA workqueue?: No Rx Plan: Medicaid O ([facility]) Drug: Zavzpret 10MG/ACT solution Cover My Meds Chong: [id number] Determination: Approved Prior Authorization/Case #: [id number] Prior Authorization Expiration: 01/31/2025 Time to PA Submission in CMM: 15 [...] refills. Prescriptions will now be processed through [facility] Delivery Pharm[facility] for determination of next steps. For questions relating to this submission, please contact [facility] at [phone] documented in this encounter [facility] 08-05-2024 Instructions Curtis Lepe PA-C - 08/05/2024 12:09 AM EDT - Increase your Vyepti dose for the next infusion and continue taking your usual Valium and Benadryl at home before each treatment to help reduce anxiety. - Discontinue Ubrelvy, since it has not provided adequate relief. - Begin Zazpret nasal spray for breakthrough migraine: use one spray in one nostril at your first sign of headache, no more than once daily (up to 6 sprays per month). A prescription will be submitted for [facility] home delivery once insurance approves. - If your headaches worsen or your migraine prevention seems to wear off before your next infusion, call the clinic to discuss adding infusion days or further treatment adjustments. Zavzpret In people with migraine, there are elevated levels of a protein called calcitonin gene-related peptide (CGRP) in the brain. These proteins attach to and activate receptors in the brain, which is believed to cause migraine attacks. Zavzpret is a Calcitonin Gene-Related Peptide (CGRP) Receptor Antagonist. Zavzpret works by blocking CGRP receptors from being activated. During a migraine attack, it can help stop the pain signals, swelling of blood vessels, and inflammation that occurs in the brain. Zavzpret is the first and only CGRP receptor antagonist nasal spray. It is rapidly absorbed in nasal cavity. It directly enters the bloodstream and avoids GI absorption and first-pass metabolism so that it can act quickly. Pain reduction usually occurs within 2 hours or sooner. Let us know if you have any liver or kidney problems before using Zavzpret. Common side effects include unusual taste, nausea/vomiting, nasal discomfort. Find out more information and get the Copay Card: https://www.zavzpret.Calendly/ Administration: Nose to toes or head level (do not tilt head back). Single spray in one nostril as needed for migraine. Do not prime. One dose per 24 hours. Avoid use with severe hepatic impairment or creatinine clearance less than 30ml/min. No contraindication to take zavzpret with nurtec or another CGRP antagonist. Use copay card. 6 doses in container. documented in this encounter [facility] 08-02-2024 History of Present illness Narrative Images from the original note were not included. [facility] A Note Subjective: April Nicholson is a 28 year old year old female presenting for day 1 of infusions. April reports a two-week history of worsening headaches. She received Toradol yesterday with vyepti treatment and notes some improvement today. She has been receiving Vyepti infusions, which she feels wear off consistently at the two-month genaro. she did well with most recent Vyepti infusion with premedicated with Benadryl and Valium to target her anxiety. She did not have any reaction like similar infusions Which was thought to correlate with anxiety opposed to allergic reaction. She does not endorse any issues with her current medications. She has been using Zomig nasal spray, which provides partial relief. She previously tried Nurtec without significant benefit and has stopped using Ubrelvy due to lack of efficacy. Therapy Plan: phenergan IV Fluids toradol magnesium robaxin New health conditions since orders were placed: No Cardiovascular risk factors: None Triptan dose in the last 24 hours: No Last muscle relaxer dose: No Last NSAID dose: No Response to infusions: Patient tolerating infusion without side effects. and Headache improving. Current Preventative: Vyepti 100 mg every 3 months, Lamictal 200mg daily Current Abortive: zomig nasal spray, phenergan Labs: Latest Ref Rng & Units 04/01/2022 [...] Lymph 1.00 - 4.00 k/uL 0.84 Abs [place] <0.87 k/uL 0.06 Abs E[place] <0.46 k/uL [...] Reglan [Metoclopram* Intolerance Vortioxetine Hives Prochlorperazine Intolerance Vyepti [Eptinezumab* Rash, Itching Patient described extreme itching located on her chest and arms (bilaterally). Current Medications: zavegepant (ZAVZPRET) 10 mg/actuation nasal spray^Use one nasal spray at migraine onset. May use once per 24 hours.^Disp: 6 each^Rfl: 11 magnesium oxide 400 mg magnesium cap^Take 1 capsule by mouth daily at bedtime.^Disp: 90 capsule^Rfl: 3 promethazine (PHENERGAN) 25 mg tablet^Take 1 tablet by mouth every 4 hours as needed. FOR NAUSEA^Disp: 90 tablet^Rfl: 5 keTORolac (TORADOL) 10 mg tablet^Take 1 tablet by mouth every 6 hours as needed (severe migraine).^Disp: 20 tablet^Rfl: 5 chlorzoxazone (PARAFON FORTE DSC) 500 mg tablet^Take 1 tablet by mouth two times a day as needed for muscle spasm (migraine).^Disp: 20 tablet^Rfl: 5 ZOLMitriptan (ZOMIG) 5 mg nasal spray^Use 1 Helix in the nose as needed at onset of migraine headache. If symptoms persist or return, may repeat dose in other nostril after 2 hours. Maximum of 2 sprays per 24 hours^Disp: 12 each^Rfl: 5 scopolamine (TRANSDERM-SCOP) patch 1.5 mg/72 hr (delivers 1 mg over 3 days)^Apply 1 Patch as directed every 72 hours. APPLY 1 DISC BEHIND THE EAR AT LEAST 4 HOURS PRIOR TO EXPOSURE AND EVERY 3 DAYS NEEDED.^Disp: 4 Patch^Rfl: 2 albuterol sulfate 90 mcg/actuation breath activated powder inhaler^Inhale 2 Puffs as instructed every 6 hours as needed for wheezing/shortness of breath.^Disp: ^Rfl: lithium carbonate 300 mg tablet^^Disp: ^Rfl: lamoTRIgine (LAMICTAL) 150 mg tablet^^Disp: ^Rfl: diazePAM (VALIUM) 10 mg tablet^^Disp: ^Rfl: Review of Systems: Review of system: Patient reports no change from the prior visit. Objective: VS: see infusion note for vital signs General: well appearing, in no acute distress, alert Neurological: Pain Behaviors: no pain behaviors observed Mental Status: Alert and oriented to person, place and time. Affect is normal and appropriate. Speech is spontaneous and fluent without dysarthria, normal in rate, volume and articulation, and clear, coherent, and relevant. Short and custodial memory, cognition and general fund of knowledge are good. Attention span and concentration are excellent. Cranial Nerves: VII-face is symmetric without evidence of weakness. VIII-hearing intact. Assessment: (G43.711) Intractable chronic migraine without aura and with status migrainosus (primary encounter diagnosis) Plan: zavegepant (ZAVZPRET) 10 mg/actuation nasal spray (G43.901) Status migrainosus April Nicholson is a 28 year old year old female, with a history of asthma, anxiety, depression, PCOS, occipital neuralgia, psychogenic nonepileptic seizures, and chronic migraine following up today for day 1 of infusions. 1. Intractable chronic migraine without aura and with status migrainosus (G43.711) 2. Status migrainosus (G43.901) - Recent Vyepti infusion was well-tolerated with premedication of Benadryl; no pruritus, rash, or sob reported. - Patient experiences anxiety during infusions; will continue premedication with Valium and Benadryl. - Headache cycle ongoing for a couple of weeks; slight improvement noted today. - Current Vyepti dose may be increased to 300mg in future infusions to extend efficacy beyond the current two-month duration. - Previous nerve block at two-month genaro was ineffective. - Zomig nasal spray provides partial relief; Nurtec previously trialed. - Discontinue Ubrelvy due to lack of efficacy. - Initiated Zavegepant nasal spray; instructed on proper administration without priming. Prescription sent to [facility] home delivery. - Discussed potential for staggered infusions if headaches worsen before the next scheduled Vyepti treatment. - Patient understands and agrees with the treatment plan. Level of service: Est level 2 (10-19 min). Time spent 18 min on the day of service, which included preparing to see the patient, [id number] patient care, completing clinical documentation, obtaining and/or reviewing separately obtained history, performing a medically appropriate examination, counseling and educating the patient/family/caregiver, and ordering medications, tests, or procedures. We will request a precertification for a Calcitonin Gene-Related Peptide Receptor Antagonist (GEPANT) Zavegepant for the rescue treatment of chronic migraine . This patient meets ICHD-3 criteria for treatment of migraine with a small molecule CGRP antagonist GEPANT. The FDA has approved GEPANTS for the treatment of migraine. Specifically, the patient has 15 headaches per month, lasting 4 or more hours/day associated with photophobia, phonophobia, nausea for three or more months. Medication overuse headache has been ruled out.Patient will not use with another GEPANT. The patient has tried and failed the following : The following preventative medications have been tried without benefit: Anti-Convulsant Lamotrigine (Lamictal) Topiramate (Topamax, Trokendi XL, Qudexy) Anti-Depressant and Antipsychotic Amitriptyline (Elavil) [place] (Eskalith, Lithobid) Nortriptyline (Pamelor, Aventyl) Blood Pressure Propranolol (Inderal) MABs Fremanezumab (Ajovy) Galcanezumab (Emgality) Botulinum Toxin Onabotulinum Toxin A (Botox) Supplements Magnesium The following abortive medications have been tried but require high frequency use which can lead to Medication Overuse Headache: Analgesic Ketorolac (Toradol) Anti-Migraine Dihydroergotamine (DHE-45, Migranal) Naratriptan (Amerge) Sumatriptan (Imitrex, Sumavel) Zolmitriptan (Zomig) Recording using Prosetta software for draft documentation of the visit was discussed with the patient/authorized graphic art sales representative; all questions welcomed and answered. Patient/authorized graphic art sales representative agreed to proceed Curtis Lepe PA-C Headache Section [facility] August 02, 2024 documented in this encounter [facility] 08-02-2024 Note HNO ID: [id number] Author: CURTIS LEPE PA-C Service: ? Author Type: Physician Chapter Relations Administrator Type: Progress Notes Filed: 08/05/2024 00:10 Note Text: [facility] A Note Subjective: April Nicholson is a 28 year old year old female presenting for day 1 of infusions. April reports a two-week history of worsening headaches. She received Toradol yesterday with vyepti treatment and notes some improvement today. She has been receiving Vyepti infusions, which she feels wear off consistently at the two-month genaro. she did well with most recent Vyepti infusion with premedicated with Benadryl and Valium to target her anxiety. She did not have any reaction like similar infusions Which was thought to correlate with anxiety opposed to allergic reaction. She does not endorse any issues with her current medications. She has been using Zomig nasal spray, which provides partial relief. She previously tried Nurtec without significant benefit and has stopped using Ubrelvy due to lack of efficacy. Therapy Plan: phenergan IV Fluids toradol magnesium robaxin New health conditions since orders were placed: No Cardiovascular risk factors: None Triptan dose in the last 24 hours: No Last muscle relaxer dose: No Last NSAID dose: No Response to infusions: Patient tolerating infusion without side effects. and Headache improving. Current Preventative: Vyepti 100 mg every 3 months, Lamictal 200mg daily Current Abortive: zomig nasal spray, phenergan Labs: Latest Ref Rng AND Units 04/01/2022 [...] Lymph 1.00 - 4.00 k/uL 0.84 Abs [place] <0.87 k/uL 0.06 Abs E[place] <0.46 k/uL [...] Reglan [Metoclopram* Intolerance Vortioxetine Hives Prochlorperazine Intolerance Vyepti [Eptinezumab* Rash, Itching Patient described extreme itching located on her chest and arms (bilaterally). Current Medications: zavegepant (ZAVZPRET) 10 mg/actuation nasal sprayUse one nasal spray at migraine onset. May use once per 24 hours.Disp: 6 eachRfl: 11 magnesium oxide 400 mg magnesium capTake 1 capsule by mouth daily at bedtime.Disp: 90 capsuleRfl: 3 promethazine (PHENERGAN) 25 mg tabletTake 1 tablet by mouth every 4 hours as needed. FOR NAUSEADisp: 90 tabletRfl: 5 keTORolac (TORADOL) 10 mg tabletTake 1 tablet by mouth every 6 hours as needed (severe migraine).Disp: 20 tabletRfl: 5 chlorzoxazone (PARAFON FORTE DSC) 500 mg tabletTake 1 tablet by mouth two times a day as needed for muscle spasm (migraine).Disp: 20 tabletRfl: 5 ZOLMitriptan (ZOMIG) 5 mg nasal sprayUse 1 Helix in the nose as needed at onset of migraine headache. If symptoms persist or return, may repeat dose in other nostril after 2 hours. Maximum of 2 sprays per 24 hoursDisp: 12 eachRfl: 5 scopolamine (TRANSDERM-SCOP) patch 1.5 mg/72 hr (delivers 1 mg over 3 days)Apply 1 Patch as directed every 72 hours. APPLY 1 DISC BEHIND THE EAR AT LEAST 4 HOURS PRIOR TO EXPOSURE AND EVERY 3 DAYS NEEDED.Disp: 4 PatchRfl: 2 albuterol sulfate 90 mcg/actuation breath activated powder inhalerInhale 2 Puffs as instructed every 6 hours as needed for wheezing/shortness of breath.Disp: Rfl: lithium carbonate 300 mg tabletDisp: Rfl: lamoTRIgine (LAMICTAL) 150 mg tabletDisp: Rfl: diazePAM (VALIUM) 10 mg tabletDisp: Rfl: Review of Systems: Review of system: Patient reports no change from the prior visit. Objective: VS: see infusion note for vital signs General: well appearing, in no acute distress, alert Neurological: Pain Behaviors: no pain behaviors observed Mental Status: Alert and oriented to person, place and time. Affect is normal and appropriate. Speech is spontaneous and fluent without dysarthria, normal in rate, volume a (more content not included)... [facility] 08-02-2024 Note HNO ID: [id number] Author: ALKA MUHAMMAD RN Service: ? Author Type: Registered Nurse Type: Progress Notes Filed: 08/02/2024 12:53 Note Text: Patient in for day 1 of IV infusions. Patient rated headache 10/10. Patient stated severe nausea and mild dizziness. Patient educated on medications to be administered and a certified driver examiner to transport home was confirmed. Patient verbalized understanding and agreed to proceed with infusions. PRn zofran and benadryl given PRN phenergan given Pts infusions complete. Pt tolerated infusion well. Pt rated headache 6/10. Pt stated mild nausea and moderate dizziness. Pt discharged from treatment room. [facility] 08-02-2024 History of Present illness Narrative Patient in for day 1 of IV infusions. Patient rated headache 10/10. Patient stated severe nausea and mild dizziness. Patient educated on medications to be administered and a certified driver examiner to transport home was confirmed. Patient verbalized understanding and agreed to proceed with infusions. PRn zofran and benadryl given PRN phenergan given Pts infusions complete. Pt tolerated infusion well. Pt rated headache 6/10. Pt stated mild nausea and moderate dizziness. Pt discharged from treatment room. documented in this encounter [facility] 08-01-2024 Note HNO ID: [id number] Author: CURTIS LEPE PA-C Service: ? Author Type: Physician Chapter Relations Administrator Type: Progress Notes Filed: 08/01/2024 13:20 Note Text: Okay to come in for 1 day of non DHE IV infusions tomorrow. [facility] 08-01-2024 History of Present illness Narrative Okay to come in for 1 day of non DHE IV infusions tomorrow. 11:00 Patient admitted to infusion area and history reviewed. Patient had headache 9/10 with moderate nausea and dizziness. Patient requests that infusions be provided for tomorrow since she is staying overnight. As per Curtis HERNANDEZ, patient was put on for day 1 infusions. 1236 Patient discharged to certified driver examiner headache pain unchanged. documented in this encounter [facility] 08-01-2024 Note HNO ID: [id number] Author: LENNIE PALACIOS RN Service: ? Author Type: Registered Nurse Type: Progress Notes Filed: 08/01/2024 13:20 Note Text: 11:00 Patient admitted to infusion area and history reviewed. Patient had headache 9/10 with moderate nausea and dizziness. Patient requests that infusions be provided for tomorrow since she is staying overnight. As per Curtis HERNANDEZ, patient was put on for day 1 infusions. 1236 Patient discharged to certified driver examiner headache pain unchanged. [facility] 07-24-2024 History of Present illness Narrative Images from the original note were not included. Subjective CC: Infected toe/infection both eyes Patient ID: April Nicholson is a 28 y.o. female. CINTHIA Newberry presents with complaints of infection of right great toe. Relates had an infected toenail of her right great toe. States had a pedicure a few days ago, and pattern storage clerk cleaned out the ingrown toenail region, and obtained a lot of green pus. States she also has had to do this in the past. Sandra feels the redness has improved, but is still sore to walk on the foot. Also relates both her eyes are light sensitive, puffy and feel bruised. This has been going on since mid-May. States she talked to provider about this, and she tried taking allergy medication, along with allergy eye drops, but obtained no relief from these symptoms. Sandra states she follows up every 3 months with [facility] for migraines. Often times the last month before her infusion, headaches arise, and along with that eye pressure. Although, is now worse than normal. The following portions of the patient's history were reviewed and updated as appropriate: allergies, current medications, past family history, past medical history, past social history, past surgical history, problem list, and medication reconciliation was completed including current medication and post discharge medication. Review of Systems Constitutional: Negative. HENT: Negative. Eyes: Positive for photophobia, pain, discharge and redness. Respiratory: Negative. Cardiovascular: Negative. Gastrointestinal: Negative. Musculoskeletal: Negative. Skin: Positive for color change. Neurological: Positive for headaches. Hx: migraine headaches Hematological: Negative. Psychiatric/Behavioral: Negative. Objective Physical Exam Vitals and nursing note reviewed. Constitutional: Appearance: Normal appearance. She is well-developed. Comments: BMI 49.76 HENT: Head: Normocephalic and atraumatic. Right Ear: Hearing and external ear normal. Left Ear: Hearing and external ear normal. Nose: Nose normal. No rhinorrhea. Mouth/Throat: Lips: [place]. Mouth: Mucous membranes are moist. Pharynx: Oropharynx is clear. Uvula midline. No oropharyngeal exudate. Eyes: General: Lids are normal. Right eye: Discharge present. Left eye: Discharge present. Conjunctiva/sclera: Right eye: Right conjunctiva is injected. Left eye: Left conjunctiva is injected. Comments: Mild orbital edema of both eyes Cardiovascular: Rate and Rhythm: Normal rate and regular rhythm. Pulses: Normal pulses. Heart sounds: Normal heart sounds. Pulmonary: Effort: Pulmonary effort is normal. Breath sounds: Normal breath sounds and air entry. Abdominal: General: There is no distension. Tenderness: There is no abdominal tenderness. Musculoskeletal: General: Normal range of motion. Cervical back: Normal range of motion and neck supple. Feet: Feet: Right foot: Skin integrity: Erythema and warmth present. Toenail Condition: Right toenails are normal. Comments: Erythema medial aspect of right great toenail Lymphadenopathy: Cervical: No cervical adenopathy. Skin: General: Skin is warm and dry. Comments: Multiple tattoos Neurological: General: No focal deficit present. Mental Status: She is alert and oriented to person, place, and time. Psychiatric: Mood and Affect: Mood normal. Behavior: Behavior normal. Assessment/Plan Advised to keep feet clean Apply Mupirocin twice daily, and keep toe covered Referral placed to podiatry Start Polytrim 1 drop to both eyes 3 times a day for 5 days Follow up as needed April was seen today for eye pain. Diagnoses and all orders for this visit: Eye infection, bilateral - mupirocin (BACTROBAN) 2 % ointment; Apply 1 Application topically in the morning and 1 Application before bedtime. - trimethoprim-polymyxin B (POLYTRIM) 10,000 unit- 1 mg/mL drops; Administer 1 drop to both eyes in the morning and 1 drop at noon and 1 drop in the evening and 1 drop before bedtime. Do all this for 5 days. Ingrown nail of great toe - Ambulatory referral to Podiatry (Non-[facility]); Future SARAHI De León 07/24/24 1707 documented in this encounter [facility] 07-05-2024 Telephone encounter Note Images from the original note were not included. Left detailed voicemail message to schedule infusions [facility] 07-05-2024 Miscellaneous Notes Images from the original note were not included. Left detailed voicemail message to schedule infusions documented in this encounter [facility] 07-05-2024 Telephone encounter Note I have been unable to reach this patient by phone. A letter is being sent to the last known home address. [facility] 07/12 Letter sent- 07/19 [facility] 07-05-2024 Miscellaneous Notes This document contains information received from the source organization and may not represent a complete record from that organization.Restricted notes were excluded I have been unable to reach this patient by phone. A letter is being sent to the last known home address. [facility] 07/12 Letter sent- 07/19 Approved or Denied?Approved Auth #[id number] Dates of span:06/25/2024 TO 09/24/2024 Method of contact:FAX Checked portal for [place] Auth#[id number] still pending. Date initiated:06/25/2024 Insurance provider:[place] Name of graphic art sales representative:portal(Urgent) Reference#:[id number] Please preauthorize this patient for: CPT code for testin ICD-10 code for testing: Encounter Diagnoses Code Name Primary? Z84.89 Family history of genetic disorder Yes Ordering provider: [place] Name of test: Parental SNP Microarray [facility] Specimen requirement: isolated DNA Expected turnaround time: 2-3 weeks Is a Test Requisition Form required for this test: No Type of primary insurance (private or state HMO): State HMO ([place] [facility]) Secondary Medicaid too? (Y/N): No Did the patient apply for [facility]? (Y/N): No If Yes, is it approved (provide approval dates) or still waiting on approval?: no Is a new blood sample required?: No Special lab draw instructions (e.g. Must draw on Monday-Monday): n/a Order placement: Default release COMMENTS: [place] Plan Plan ID: [id number] GENETIC COUNSELOR ASSESSMENT A consultation was requested for April Nicholson, a 28 year old female, for genetic counseling and discussion of potential genetic testing options. Prior to the visit, as needed, the genetic counselor reviewed records in the patient's EMR including, but not limited to, available clinic notes, physician consultations, laboratory tests, imaging reports, cardiac studies, and other investigations and evaluations. The genetic counselor also reviewed the case with Gifty Reno MD's as needed prior to seeing the patient. The patient was accompanied to today's appointment by her self. April's daughter has a history of 16p11.2 deletion syndrome. April, who has a personal history of learning delays, is at risk of also having this disorder. Should she be found to have 16p11.2 deletion, each of her children will have a 50% risk of also having this disorder. A 3-generation genetic pedigree was obtained at this visit and will be scanned into the Media tab. Family history was significant for 16p11.2 deletion syndrome in Sandie's daughter. There is also a family history of learning delays, intellectual disability and autism in several of her other children who share different fathers as her daughter. The remainder of April's reported family history is negative for known or suspected genetic disease, defects, malformation syndromes, chromosomal disorders, developmental delay, intellectual disability, infertility, recurrent loss, stillbirth, unexplained infant . Dr. Gifty Reno MD is recommending SNP microarray testing due to the the family history of 16p11.2 deletion. I explained the genetic testing to April and answered her questions. We will obtain insurance prior authorization before ordering the genetic testing. The family understood and agreed to the plan. The Genetics office will be in contact once insurance prior authorization has been completed. A licensed genetic counselor provided pre-test genetic counseling to the family at the visit. This discussion included the benefits of genetic testing, including lack of an applicable alternative biochemical test, potential treatment options and identification of medical management needs that may come out of the result of the genetic testing, and the possibility of providing a recurrence risk and test option for the family. Risks and limitations of genetic testing were discussed as well, including the sensitivity of the testing and possibility of receiving secondary findings and results of uncertain clinical significance. Post-test genetic counseling will be provided to the family, if requested. The family expressed understanding and asked appropriate questions during this discussion. This plan is being carried out per Gifty Reno MD's recommendations. This note will also be sent to the referring provider. Sincerely, Viktoria Walton MS, [facility] Licensed, Certified Genetic Counselor documented in this encounter [facility] 07-05-2024 Telephone encounter Note Approved or Denied?Approved Auth #[id number] Dates of span:06/25/2024 TO 09/24/2024 Method of contact:FAX [facility] 07-05-2024 History of Present illness Narrative Received [facility] FAX Forward FAX to Supporting Admin documented in this encounter [facility] 07-04-2024 Instructions Curtis Lepe PA-C - 07/04/2024 11:24 AM EDT You will soon receive a call from our infusion scheduling provider (Mendoza from a [phone] number) to arrange your infusion appointment days (likely on non-consecutive days such as Monday, Monday, and Monday). Please be available to schedule as soon as possible. For the infusion treatment, you will receive IV medications including Benadryl (given during the infusion), Toradol, Phenergan (replacing Compazine), magnesium, Zofran, and muscle relaxers (such as methocarbamol and Robaxin). Do not take any NSAIDs (for example, Musrax) for 24 hours before and after your infusion, as you will be receiving Toradol, which is a strong anti-inflammatory. Do not take oral Benadryl before the infusion because it is part of your treatment plan. If you feel extremely anxious, you may use your anxiety medication (such as Valium) as needed, but please follow up with your psychiatrist regarding timing so that it does not overly increase tiredness during your infusion. Arrange for a ride to and from the infusion center since the medications may cause drowsiness, and plan on spending about 4-5 hours there. Consider bringing headphones, a book or music, and some light snacks and drinks. Since you mentioned light triggers for your migraines, continue using your sunglasses indoors when needed to minimize exposure to bright light. Because your previous primary physician, Dr. Borrego, left the practice, please call the vest front presser to reestablish care with a new physician when you have the opportunity. Follow the above instructions as you prepare for your infusion and ongoing care. Infusions are done here at [facility] in the [facility]. Our infusion treatment room is where an individual may come to receive outpatient intravenous medications for the purpose of aborting the headache and/ or migraine symptoms for ideally three consecutive days. There are many medications that can be used for your infusion therapy and your team will decide which ones and how much you will receive. The medicines chosen are based on your type of headache, other medical conditions, allergies, and previous response to certain medications. The most common classifications of medications we use are anti-histamines, anti-emetics, anti-seizures, smooth muscle relaxers, steroids, NSAIDS, and DHE-45. Please do not take any triptans (ex: almotriptan, eletriptan, frovatriptan, naratriptan, rizatriptan, sumatriptan, zolmitriptan). Please continue all other home medications as prescribed. Plan on staying about 4-5 hours, but the length of treatment may vary depending on the medications you will receive. Your nurse will be able to give you more of an approximate time after she receives the orders from your provider. It is best to have a certified driver examiner, as some medications we use may cause drowsiness. If you do not have a certified driver examiner, please let your nurse know and you will not be given any medication that may cause drowsiness. Most patients prefer to sleep during their infusion. We do not have TV or radio in the treatment room. If you find music relaxing you may bring headphones to listen on your device. All chairs in the treatment room recline for comfort. You may bring a light lunch, snack, or beverage. We do have some sodas, juices, and crackers if you prefer. The room is maintained at a dark and cool temperature, so layer clothing for comfort. We will need access to your arms for placement of an IV. Please refrain from wearing perfumes, colognes, and heavy scented lotions. documented in this encounter [facility] 07-04-2024 History of Present illness Narrative Images from [...] visit. Either the patient or their legal graphic art sales representative has been informed of the [...] Aura and Without Status Migrainosus Chief Complaint: Migraines and Medication management Impression and Plan from last visit on 05/03/24 with Curtis Lepe PA-C: Intractable chronic migraine without aura and with status migrainosus (primary encounter diagnosis) Nausea Generalized anxiety disorder 1. Intractable chronic migraine without aura and with status migrainosus (G43.711) - Patient experiences significant relief from Vyepti infusions, though the last month before the next scheduled infusion is marked by severe migraines. - Reports pruritus during Vyepti infusions, managed with IV Benadryl; no associated rash, dyspnea, or throat tightness. - Discussed potential allergic reaction versus anxiety-induced pruritus; patient takes diazepam prior to infusions to manage anxiety. - Will consult with supervising physician and infusion clinic regarding premedication with IV Benadryl prior to Vyepti infusions. - Prescribed Ubrelvy as an additional rescue medication; instructed patient on administration and potential side effects. - Will monitor for any changes in treatment plan and communicate updates to the patient. 2. Nausea (R11.0) - Currently managed with Phenergan; patient reports drowsiness as a side effect. - Discussed potential use of scopolamine patch for severe nausea; will review patient's history and consult with supervising physician before making a recommendation. - Advised patient on the anticholinergic effects of scopolamine and the importance of using it only for severe cases. 3. Generalized anxiety disorder (F41.1) - Anxiety may contribute to pruritus during Vyepti infusions. - Continues to manage anxiety with diazepam; advised on deep breathing exercises and positive visualization during infusions. - Will monitor anxiety symptoms in relation to migraine treatment and adjust management as needed. I spoke with nursing staff in our infusion clinic. That noted pruritus as well as diffuse scratch pepe. Interval Headache History: April is a 28-year-old female presenting for follow-up on migraine management. April was last seen two months ago, following her most recent Vyepti infusion, which was not completed in full due to an adverse reaction. She reports that she received approximately 66-70% of the infusion before experiencing itching 20 minutes into the 30-minute procedure. She attributes this reaction to anxiety, which has been exacerbated by significant stressors at home. Her psychiatrist is actively working to manage her anxiety, and she has been advised to use music and an extra dose of Valium during infusions to help mitigate anxiety. Since the partial Vyepti infusion, she has experienced a significant increase in migraine frequency and severity, necessitating four to five emergency room visits. In our system, I only see 1 emergency department visit. In the ER, she typically receives Toradol, Zofran, and Benadryl. She believes that the incomplete Vyepti infusion may have contributed to the worsening of her migraines, as she usually experiences better control with a full dose. She has also been using Ubrelvy as a rescue medication but finds it only partially effective. She has tried multiple other rescue medications, including Zomig, sumatriptan (Imitrex), naratriptan (Amerge), DHE (Migranal), and Nurtec, with varying degrees of success. She expresses concern that her body becomes immune to medications over time, reducing their effectiveness. She identifies heat and sunlight as significant migraine triggers and has been wearing sunglasses both outdoors and indoors to minimize exposure. She reports that wearing sunglasses helps reduce the frequency and severity of her migraines, but she finds that store-bought sunglasses are not dark enough to provide adequate relief. April is also undergoing genetic testing for a possible 11.2 micro 16 microdeletion syndrome, which her daughter has been diagnosed with. She reports experiencing symptoms similar to her daughter's and is awaiting test results. She is a mother of four children, including one with special needs, and emphasizes the importance of managing her migraines to care for her family effectively. She expresses a strong desire to find a more effective treatment plan, stating, I need something, like we need to come up with a game plan because I cannot keep struggling like this. Past Diagnostic Results: Labs - Genetic Testing: Pending. Previous reaction to IV infusions: She has received Vyepti infusions three treatments and reports consistent itching on her face, chest, under her chin, and the tips of her fingers during each infusion. She does not endorse any hives, shortness of breath, or throat tightness. She suspects the itching may be related to anxiety triggered by the infusion, as she experiences similar symptoms with anxiety. She takes diazepam before the infusions to manage anxiety. The itching resolves with IV Benadryl, and she suggests premedication with Benadryl before future infusions. Post follow-up message: It was nice to meet you last Monday. I spoke with Dr. Mas and she agreed with continuing Vyepti. I recommend pretreating with oral Benadryl prior to your infusion. We can then administer IV Benadryl if you experience a reaction. You could consider topical benadryl to use as needed during the infusion. I sent the scopolamine patch for you to use sparingly as needed with severe nausea. Please let me know if you have other questions. Emergency department trip on 05/04/2024: History of Present Illness: Patient is a 28-year-old female who presents to the emergency department complaints of a severe headache. She comes in with her mother she is in here via wheelchair she is dream only groggy and somewhat sedated. It sounds like she has had a very prolonged and protracted problem with migraine headaches some fact she was just at an infusion center yesterday and got a medication for the migraine headaches shortly after that she went to an emergency department to get a migraine headache cocktail and then seemed to be doing okay and then today went to a another emergency department to get medications not sure if she received anything there and then went home tonight took her trazodone and Valium cut she had some complaint of some seizure activity which is common with her migraine headaches and then presents here as the headache is still quite bothersome. She has also had some nausea and vomiting and there is a concern for mild dehydration. Fortunately per the patient's and patient's mother these headaches are normal for her and this seizure type like activity is normal for her with headaches. There is some prior history of psychogenic nonepileptic seizure disorder. The patient's main hope is to try and provide some headache relief and possibly IV fluids. Medical Decision Making And multiple attempts for IV access. Including myself attempting twice with IV access under ultrasound guidance I was able to successfully cannulate the vessel but unable to thread the catheter successfully. Patient has had a couple of the shaking back/seizure type activity here but they do resolve spontaneously. With her significant drowsiness on presentation and her having trazodone and Valium prior to arrival even though she did say she had an episode of emesis I felt uncomfortable doing any other benzodiazepines and she has been resolved spontaneously no loss of bowel or bladder function no other concern. We have given her the pain medications Toradol and Zofran IM and she has been resting comfortably this point. Preventative: Vyepti 100 mg every 3 months, Lamictal 200mg daily Rescue: zomig nasal spray, phenergan Headache 1 Location: holcephalic Quality/Description: throbbing and pressure Associated Symptoms: Photophobia: yes Phonophobia: yes Nausea: yes Vomiting: yes Other symptoms: osmophobia Worse with activity: yes Number of migraine headache days/month: 7 Migraine headache severity: 10/10 Number of headache free days/month: 14 Duration of headaches with treatment: 13 days (312 hours) Triggers: stress, weather changes, fasting/hunger and dehydration Onset of headache to peak: varies Positional changes: no Most common time of day for headache to begin: evening Aura: blurred vision Allodynia: yes Days missed from work or school in the last month: 15 days Headache status since the last visit: worse Review of Systems: Review of system : unchanged from the previous visit (sleep patterns, mood, energy, appetite, stress, exercising). Prior Therapies Duration of Use Dose Reason for Discontinuation Analgesic Ketorolac (Toradol) Anti-Convulsant Lamotrigine (Lamictal) Topiramate (Topamax, Trokendi XL, Qudexy) Anti-Depressant and Antipsychotic Amitriptyline (Elavil) Haugan (Eskalith, Lithobid) Nortriptyline (Pamelor, Aventyl) Anti-Migraine Dihydroergotamine [...] Pyrilamine-Dextrome* Hives Reglan [Metoclopram* Intolerance Vortioxetine Hives Vyepti [Eptinezumab* Rash, Itching Patient described extreme itching located on her chest and arms (bilaterally). Prochlorperazine Intolerance Current Medications: magnesium oxide 400 mg magnesium cap^Take 1 capsule by mouth daily at bedtime.^Disp: 90 capsule^Rfl: 3 promethazine (PHENERGAN) 25 mg tablet^Take 1 tablet by mouth every 4 hours as needed. FOR NAUSEA^Disp: 90 tablet^Rfl: 5 keTORolac (TORADOL) 10 mg tablet^Take 1 tablet by mouth every 6 hours as needed (severe migraine).^Disp: 20 tablet^Rfl: 5 chlorzoxazone (PARAFON FORTE DSC) 500 mg tablet^Take 1 tablet by mouth two times a day as needed for muscle spasm (migraine).^Disp: 20 tablet^Rfl: 5 ZOLMitriptan (ZOMIG) 5 mg nasal spray^Use 1 Helix in the nose as needed at onset of migraine headache. If symptoms persist or return, may repeat dose in other nostril after 2 hours. Maximum of 2 sprays per 24 hours^Disp: 12 each^Rfl: 5 scopolamine (TRANSDERM-SCOP) patch 1.5 mg/72 hr (delivers 1 mg over 3 days)^Apply 1 Patch as directed every 72 hours. APPLY 1 DISC BEHIND THE EAR AT LEAST 4 HOURS PRIOR TO EXPOSURE AND EVERY 3 DAYS NEEDED.^Disp: 4 Patch^Rfl: 2 ubrogepant (UBRELVY) 100 mg tablet^Take 1 tablet at onset of migraine/headache. May repeat dose in 2 hours if needed. Do NOT take more than 2 tablets in 24 hours. Max dose is 200 mg in 24 hours.^Disp: 16 tablet^Rfl: 5 albuterol sulfate 90 mcg/actuation breath activated powder inhaler^Inhale 2 Puffs as instructed every 6 hours as needed for wheezing/shortness of breath.^Disp: ^Rfl: lithium carbonate 300 mg tablet^^Disp: ^Rfl: lamoTRIgine (LAMICTAL) 150 mg tablet^^Disp: ^Rfl: diazePAM (VALIUM) 10 mg tablet^^Disp: ^Rfl: I have reviewed the Health Status Assessment responses and discussed these with the patient: yes Curtis Lepe PA-C HEADACHE SCORES: 03/20/2024 05/03/2024 07/04/2024 Headache Questions ER visits since last office visit: 3 3 4 Hospital stays since last office visit 0 0 1 Limited ADLs in the last month: 12 16 13 Days missed from work or school in the last month: 0 Days headache pain free in the last month: 14 Days per month with ALL of the following symptoms - decreased productivity, light sensitivity and nausea: 7 15 Initial improvement of headache after botox injection at last visit: Not applicable, I did not have a botox injection at my last visit Not applicable, I did not have a botox injection at my last visit Not applicable, I did not have a botox injection at my last visit Patient impression of improvement since last visit: Minimally improved No change Minimally improved 03/20/2024 05/03/2024 07/04/2024 HIT-6 HIT-6 72 (Severe impact) 78 (Severe impact) 70 (Severe impact) 03/20/2024 05/03/2024 07/04/2024 OMID - 2/7 SCORES OMID-2 Score 2 2 3 OMID-7 Score 8 03/20/2024 05/03/2024 07/04/2024 Migraine Specific QOL - Higher scores indicate better HRQL Role Function-Restrictive Transformed Score (range: 0-100) 20 40 37.14 Role Function-Preventive Transformed Score (range: 0-100) 35 40 20 Emotional Function Transformed Score (range: 0-100) 13.33 40 13.33 03/20/2024 05/03/2024 07/04/2024 PHQ-9 Score 12 9 9 Studies to Review: No MRI Head/Brain - [...] No resulted procedures found. Labs to Review: Yes - Most recent CMP/BMP and CBC below CMP: Latest Ref Rng & Units 04/01/2022 CMP [...] Alkaline Phosphatase 34 - 123 U/L 84 CBC: Latest Ref Rng & Units 04/01/2022 CBC [...] Lymph 1.00 - 4.00 k/uL 0.84 Abs [place] <0.87 k/uL 0.06 Abs Eosin <0.46 k/uL <0.03 Abs Baso <0.11 k/uL <0.03 NRBC /100 WBC 0.0 New Health Issues: No New Family History: No Review of Systems: Review of system: unchanged [...] spontaneous and fluent without dysarthria. Short and custodial memory, cognition and general fund of knowledge are good. Attention span and concentration are excellent. HEENT: Head is normocephalic and features were symmetric. Musculoskeletal: Patient able to sit up right in chair for entirety of visit. Cranial Nerves: III, IV, -EOMI: full. VII-face is symmetric without evidence of weakness. VIII-hearing intact. IMPRESSION: April Nicholson is a 28 year old year old female, with a history of asthma, anxiety, depression, PCOS, occipital neuralgia, psychogenic nonepileptic seizures, and chronic migraine. Their neurological examination is essentially normal at this visit although this is limited due to nature of telehealth. 1. Status migrainosus (G43.901) 2. Intractable chronic migraine without aura and without status migrainosus (G43.719) - Recent incomplete Vyepti infusion may have contributed to increased migraine frequency and severity; approximately 66-70% of the infusion was administered before onset of pruritus. - Multiple ED visits for migraine management; current rescue medication Ubrelvy provides limited relief. - Previous treatments include Zomig, sumatriptan, naratriptan, DHE, and Nurtec with varying efficacy. - Discussed potential for medication overuse headache due to frequent use of rescue medications. - Scheduled a 3-day infusion therapy course with IV fluids, Benadryl, Toradol, methocarbamol, Robaxin, magnesium, Zofran, and Phenergan (substituted for Compazine due to intolerance) to break the current headache cycle. This has worked well for her in the past and was tolerated well. - Advised against use of NSAIDs, Muscle relaxers, or triptans 24 hours before and after infusions. - I recommended establishing care with new supervising physician as well as consistent follow-up with regular providers for continuity of care - Follow-up appointment scheduled in 1.5 months to reassess migraine management and efficacy of current treatment plan. 3. Generalized anxiety disorder (F41.1) - Anxiety exacerbating migraine symptoms; discussed with psychiatrist. - Advised use of Valium as needed for anxiety management during Vyepti infusions, with caution regarding sedation - Recommended non-pharmacological interventions such as listening to music during infusions to distract yourself and reduce anxiety. - Continue follow-up with psychiatrist to optimize anxiety management. Appropriate refills were prescribed. All questions & concerns were addressed. Regular monitoring of CBC + CMP was encouraged to evaluate for kidney/liver function and electrolytes related to long-term medication usage. Patient verbalized understanding and agreed to treatment plan. Future considerations: Increase Vyepti-I am very hesitant given adverse reaction, Aimovig, Qulipta, adjunctive Botox, adjusting infusion plan Prior Authorization: April Nicholson has been previously [...] XL, Qudexy) Anti-Depressant and Antipsychotic Amitriptyline (Elavil) Haugan (Eskalith, Lithobid) Nortriptyline (Pamelor, Aventyl) Blood Pressure Propranolol (Inderal) MABs Fremanezumab (Ajovy) Galcanezumab (Emgality) Botulinum Toxin Onabotulinum Toxin A (Botox) Supplements Magnesium The following abortive medications have been tried but require high frequency use which can lead to Medication Overuse Headache: Analgesic Ketorolac (Toradol) Anti-Migraine Dihydroergotamine (DHE-45, Migranal) Naratriptan (Amerge) Sumatriptan (Imitrex, Sumavel) Zolmitriptan (Zomig) MEDICATION TREATMENT: Medications to Start Taking None RESEARCH: None at this time Follow-up: next available, For 3-day course of IV infusions, and call office ([phone]) with problems or concerns before appointment Level of Service: Virtual Visit 32 minutes Recording using Prosetta software for draft documentation of the visit was discussed with the patient/authorized graphic art sales representative; all questions welcomed and answered. Patient/authorized graphic art sales representative agreed to proceed This note was partially generated using [employer] voice recognition system, and there may be some incorrect words, spellings, and punctuation that were not noted in checking the note before saving. Curtis Lepe PA-C Headache Section [facility] July 04, 2024 documented in this encounter [facility] 07-04-2024 Note HNO ID: [id number] Author: CURTIS LEPE PA-C Service: ? Author Type: Physician Chapter Relations Administrator Type: Progress Notes Filed: 07/04/2024 13:48 Note Text: Headache Center - Follow up [...] visit. Either the patient or their legal graphic art sales representative has been informed of the [...] Aura and Without Status Migrainosus Chief Complaint: Migraines and Medication management Impression and Plan from last visit on 05/03/24 with Curtis Lepe PA-C: Intractable chronic migraine without aura and with status migrainosus (primary encounter diagnosis) Nausea Generalized anxiety disorder 1. Intractable chronic migraine without aura and with status migrainosus (G43.711) - Patient experiences significant relief from Vyepti infusions, though the last month before the next scheduled infusion is marked by severe migraines. - Reports pruritus during Vyepti infusions, managed with IV Benadryl; no associated rash, dyspnea, or throat tightness. - Discussed potential allergic reaction versus anxiety-induced pruritus; patient takes diazepam prior to infusions to manage anxiety. - Will consult with supervising physician and infusion clinic regarding premedication with IV Benadryl prior to Vyepti infusions. - Prescribed Ubrelvy as an additional rescue medication; instructed patient on administration and potential side effects. - Will monitor for any changes in treatment plan and communicate updates to the patient. 2. Nausea (R11.0) - Currently managed with Phenergan; patient reports drowsiness as a side effect. - Discussed potential use of scopolamine patch for severe nausea; will review patient's history and consult with supervising physician before making a recommendation. - Advised patient on the anticholinergic effects of scopolamine and the importance of using it only for severe cases. 3. Generalized anxiety disorder (F41.1) - Anxiety may contribute to pruritus during Vyepti infusions. - Continues to manage anxiety with diazepam; advised on deep breathing exercises and positive visualization during infusions. - Will monitor anxiety symptoms in relation to migraine treatment and adjust management as needed. I spoke with nursing staff in our infusion clinic. That noted pruritus as well as diffuse scratch pepe. Interval Headache History: April is a 28-year-old female presenting for follow-up on migraine management. April was last seen two months ago, following her most recent Vyepti infusion, which was not completed in full due to an adverse reaction. She reports that she received approximately 66-70% of the infusion before experiencing itching 20 minutes into the 30-minute procedure. She attributes this reaction to anxiety, which has been exacerbated by significant stressors at home. Her psychiatrist is actively working to manage her anxiety, and she has been advised to use music and an extra dose of Valium during infusions to help mitigate anxiety. Since the partial Vyepti infusion, she has experienced a significant increase in migraine frequency and severity, necessitating four to five emergency room visits. In our system, I only see 1 emergency department visit. In the ER, she typically receives Toradol, Zofran, and Benadryl. She believes that the incomplete Vyepti infusion may have contributed to the worsening of her migraines, as she usually experiences better control with a full dose. She has also been using Ubrelvy as a rescue medication but finds it only partially effective. She has tried multiple other rescue medications, including Zomig, sumatriptan (Imitrex), naratriptan (Amerge), DHE (Migranal), and Nurtec, with varying degrees of success. She expresses concern that her body becomes immune to medications over time, reducing their effectiveness. She identifies (more content not included)... [facility] 07-02-2024 Telephone encounter Note Checked portal for [place] Auth#[id number] still pending. [facility] 07-01-2024 History of Present illness Narrative Reason for Appointment: Patient ID: Sandie Nichloson is a 28 y.o. female who presents for Vaginitis/Bacterial Vaginosis Patient presents today for UTI and STD Check. MEDICATIONS Current Outpatient Medications Medication Instructions Acetaminophen Extra Strength 500 mg, Every 6 hours PRN Aimovig 70 mg, Every 28 days albuterol HFA 90 mcg/act inhaler 2 puffs, Every 4 hours PRN albuterol 2.5 mg, 4 times daily PRN amitriptyline (ELAVIL) 100 mg, Nightly baclofen (LIORESAL) 10 mg, Nightly chlorzoxazone (PARAFON FORTE) 500 mg, 2 times daily PRN diazePAM (VALIUM) 10 mg, Every 24 hours estradiol (ESTRACE) 1 mg, Oral, Daily RT fluconazole (DIFLUCAN) 150 mg, Oral, Once, This is a 1 time dose, take single tablet by mouth. fluticasone (Flonase) 50 MCG/ACT nasal spray 1 spray, Daily ibuprofen 800 mg, Every 6 hours PRN ketoconazole (NIZOral) 2 % shampoo 1 Application, 2 times weekly ketorolac (TORADOL) 10 mg, Every 8 hours PRN lithium 300 mg, 2 times daily loratadine (CLARITIN) 10 mg, Daily PRN metroNIDAZOLE (FLAGYL) 500 mg, Oral, 2 times daily, Do not drink alcohol while taking this medication omeprazole (PRILOSEC) 40 mg, Daily ondansetron ODT (ZOFRAN-ODT) 4 mg, Every 6 hours PRN promethazine (PHENERGAN) 25 mg, Every 6 hours PRN scopolamine (Transderm-Scop) 1 mg/72 hr patch 72 hour patch 1 patch, Every 72 hours Ubrelvy 100 mg, As needed ALLERGIES Allergies Allergen Reactions Dihydroergotamine GI intolerance [...] in female 12/19/2022 Mixed bipolar I disorder ([facility]) 01/24/2023 Chronic migraine without aura without status migrainosus, not intractable ([facility]) 01/24/2023 Generalized anxiety disorder ([facility]) 01/24/2023 Persistent disorder of initiating or maintaining sleep 01/24/2023 Mild persistent asthma 01/24/2023 Polycystic ovaries 01/24/2023 Psychogenic nonepileptic seizure 01/24/2023 Class 3 severe obesity due to excess calories without serious comorbidity with body mass index (BMI) of 50.0 to 59.9 in adult 03/21/2023 Mild persistent asthma with (acute) exacerbation ([facility]) 10/10/2023 Fatigue 01/01/2024 Encounter for long-term (current) [...] Acute exacerbation of asthma with allergic rhinitis ([facility]) Allergies Asthma At low risk for fall Bipolar affective, mixed (HCC) ([facility]) Change in blood pressure Cholecystitis 2009 Depressive disorder ([facility]) OMID (generalized anxiety disorder) ([facility]) History of hysterectomy 10/01/2021 Insomnia, persistent Migraines ([facility]) Mild persistent asthma without complication ([facility]) Morbid obesity with BMI of 40.0-44.9, adult ([facility]) PCOS (polycystic ovarian syndrome) Right otitis media Seizures ([facility]) HISTORY PAST MEDICAL HISTORY SOCIAL HISTORY Past Medical History: Diagnosis Date Acute exacerbation of asthma with allergic rhinitis ([facility]) Allergies Asthma At low risk for fall Bipolar affective, mixed ([facility]) ([facility]) Change in blood pressure high and low Cholecystitis 2008 Chronic migraine without aura without status migrainosus, not intractable ([facility]) Depressive disorder ([facility]) OMID (generalized anxiety disorder) ([facility]) History of hysterectomy 10/01/2021 Insomnia, persistent Migraines ([facility]) Mild persistent asthma without complication ([facility]) Morbid obesity with BMI of 40.0-44.9, adult ([facility]) PCOS (polycystic ovarian syndrome) Psychogenic nonepileptic seizure Right otitis media Seizures ([facility]) stressed induced Social History Tobacco Use Smoking [...] SYSTEMS Review of Systems: Review of Systems OBJECTIVE Objective: OBGyn Exam Vitals: Estimated body mass index is 47.2 kg/m as calculated from the following: Height as of 02/09/24: 5' 1 . Weight as of this encounter: 249 lb 12.8 oz. BP: 120/80 No LMP recorded. Patient has had a hysterectomy. ASSESSMENT & PLAN ICD-10-CM 1. Yeast infection B37.9 SURESWAB(R) ADVANCED VAGINITIS PLUS, TMA CHLAMYDIA TRACHOMATIS (GENITO/STI) Neisseria gonorrhea DNA probe, direct POCT urinalysis dipstick manually resulted fluconazole (Diflucan) 150 MG tablet 2. BV (bacterial vaginosis) N76.0 metroNIDAZOLE (Flagyl) 500 MG tablet B96.89 3. Low libido R68.82 estradiol (Estrace) 1 MG tablet 4. Dyspareunia in female N94.10 estradiol (Estrace) 1 MG tablet Pt desires to have std cx's at today's visit and complains of vaginal discharge/UTI. Dr Blas did a vaginal check due to complains of pain along w/cx's. Upon examining Dr. Blas requests to send in Diflucan due to the yeast infection along w/Flagyl for BV. Dr. Blas is continuing to have patient stay on the estraidol however, patient is to take half of the tablet in the morning and the other half in the evening to help w/her vaginal pain. PVU. Documented by Ammy Carrington MA on behalf of: Zay Blas DO documented in this encounter [facility] 06-25-2024 Telephone encounter Note Date initiated:06/25/2024 Insurance provider:Lyndsay Name of graphic art sales representative:portal(Urgent) Reference#:[id number] [facility] 06-25-2024 Telephone encounter Note Please preauthorize this patient for: CPT code for testin ICD-10 code for testing: Encounter Diagnoses Code Name Primary? Z84.89 Family history of genetic disorder Yes Ordering provider: Temo Name of test: Parental SNP Microarray [facility] Specimen requirement: isolated DNA Expected turnaround time: 2-3 weeks Is a Test Requisition Form required for this test: No Type of primary insurance (private or state HMO): State HMO ([facility]) Secondary Medicaid too? (Y/N): No Did the patient apply for [facility]? (Y/N): No If Yes, is it approved (provide approval dates) or still waiting on approval?: no Is a new blood sample required?: No Special lab draw instructions (e.g. Must draw on Monday-Monday): n/a Order placement: Default release COMMENTS: [facility] Plan ID: [id number] [facility] 06-25-2024 Telephone encounter Note GENETIC COUNSELOR ASSESSMENT A consultation was requested for April Nicholson, a 28 year old female, for genetic counseling and discussion of potential genetic testing options. Prior to the visit, as needed, the genetic counselor reviewed records in the patient's EMR including, but not limited to, available clinic notes, physician consultations, laboratory tests, imaging reports, cardiac studies, and other investigations and evaluations. The genetic counselor also reviewed the case with Gifty Reno MD's as needed prior to seeing the patient. The patient was accompanied to today's appointment by her self. April's daughter has a history of 16p11.2 deletion syndrome. April, who has a personal history of learning delays, is at risk of also having this disorder. Should she be found to have 16p11.2 deletion, each of her children will have a 50% risk of also having this disorder. A 3-generation genetic pedigree was obtained at this visit and will be scanned into the Media tab. Family history was significant for 16p11.2 deletion syndrome in Sandie's daughter. There is also a family history of learning delays, intellectual disability and autism in several of her other children who share different fathers as her daughter. The remainder of April's reported family history is negative for known or suspected genetic disease, defects, malformation syndromes, chromosomal disorders, developmental delay, intellectual disability, infertility, recurrent loss, stillbirth, unexplained . Dr. Gifty Reno MD is recommending SNP microarray testing due to the the family history of [id number] deletion. I explained the genetic testing to April and answered her questions. We will obtain insurance prior authorization before ordering the genetic testing. The family understood and agreed to the plan. The Genetics office will be in contact once insurance prior authorization has been completed. A licensed genetic counselor provided pre-test genetic counseling to the family at the visit. This discussion included the benefits of genetic testing, including lack of an applicable alternative biochemical test, potential treatment options and identification of medical management needs that may come out of the result of the genetic testing, and the possibility of providing a recurrence risk and test option for the family. Risks and limitations of genetic testing were discussed as well, including the sensitivity of the testing and possibility of receiving secondary findings and results of uncertain clinical significance. Post-test genetic counseling will be provided to the family, if requested. The family expressed understanding and asked appropriate questions during this discussion. This plan is being carried out per Gifty Reno MD's recommendations. This note will also be sent to the referring provider. Sincerely, Viktoria Walton MS, PHILIP Licensed, Certified Genetic Counselor [facility] 06-07-2024 Miscellaneous Notes Contract: [id number] No need to call documented in this encounter [facility] 06-07-2024 Telephone encounter Note Contract: [id number] No need to call [facility] 06-06-2024 History of Present illness Narrative Images from the original note were not included. [address] [place] [id number] Patient: April Nicholson Date of : 1995 Encounter Date: 06/06/2024 SUBJECTIVE: Chief Complaint: Chief Complaint Patient presents with Fatigue Patient ID: April Nicholson is a 28 y.o. female. Pleasant 20-year-old female seen today for TeleMed encounter for interval assessment of chronic fatigue and allergic rhinitis / dermatitis symptoms. Was seen proximally 2 weeks ago and prescribed a course of prednisone taper pack and Claritin D which did provide significant relief with the patient. Patient's mood and sleep has been improved, has been seeing counselor twice a week now which has been helpful. Is attempting to lose weight and exercise has a form of therapy for both her mood and fatigue. Does have multiple stressors at home with children current living conditions. Adherent to all therapies. Not currently on any narcotic pain control Does use Valium very sparingly Requesting re-initiation of Adipex for weight loss assistance and stimulant energy. OARRS reviewed The following portions of the patient's history were reviewed and updated as appropriate: allergies, current medications, past family history, past medical history, past social history, past surgical history and problem list. PHYSICAL EXAMINATION: Physical Exam Constitutional: Appearance: She is well-developed. She is not ill-appearing. HENT: Head: Normocephalic and atraumatic. Nose: Nose normal. Eyes: General: No scleral icterus. Extraocular Movements: Extraocular movements intact. Pupils: Pupils are equal, round, and reactive to light. Musculoskeletal: Cervical back: Normal range of motion. Neurological: Mental Status: She is alert and oriented to person, place, and time. Psychiatric: Mood and Affect: Mood normal. Behavior: Behavior normal. Thought Content: Thought content normal. Judgment: Judgment normal. ASSESSMENT/PLAN: April was seen today for fatigue. Diagnoses and all orders for this visit: Weight loss - phentermine 37.5 MG capsule; Take 1 capsule (37.5 mg total) by mouth every morning. Moderate persistent asthma with acute exacerbation Seasonal allergic rhinitis, unspecified trigger - fluticasone propionate (FLONASE) 50 mcg/actuation nasal spray; Administer 1 spray into each nostril every other day. - loratadine (CLARITIN) 10 mg tablet; Take 1 tablet (10 mg total) by mouth daily as needed for allergies. Initiate Adipex therapy for weight loss. Patient was aware that Adipex will be a three-month duration and then will require drug holiday. OARRS reviewed: No longer on any narcotic pain control. Does use Valium sparingly for anxiety symptoms. Completed a course of prednisone and Claritin-pseudoephedrine. Maintenance therapy of Flonase and Claritin prescribed Counseling twice a week Exercise counseling completed. Follow-up in 3 months Video Visit via Real-time Synchronous Audiovisual Provider Location: [facility] [address] [place] [phone] Patient Location: Patient's home Video Visit Consent Statement: I discussed risks, benefits, and alternatives of a real-time synchronous audiovisual consultation with the patient (and any accompanying persons) including the risks that the patient's personal health details and medical records will be discussed over real-time, synchronous, interactive video/audio/telecommunication technology, the visit will not be recorded without the express consent of both the provider and the patient, and that there are some limitations compared to [id number] evaluations. The patient consented to the presence of additional virtual and/or in-person participants. We elected to proceed. CORINE GOLD MD Family Medicine Physician [facility] 06/06/24 This note was completed with voice recognition software. The document was reviewed for errors however some may still be present. Please do not hesitate to contact/Epic msg the author to verify any questions/concerns. documented in this encounter [facility] 06-03-2024 Telephone encounter Note Requesting refills as follows: Requested Prescriptions Pending Prescriptions Disp Refills magnesium oxide 400 mg magnesium cap 90 capsule 3 Sig: Take 1 capsule by mouth daily at bedtime. promethazine (PHENERGAN) 25 mg tablet 90 tablet 5 Sig: Take 1 tablet by mouth every 4 hours as needed. FOR NAUSEA keTORolac (TORADOL) 10 mg tablet 20 tablet 5 Sig: Take 1 tablet by mouth every 6 hours as needed (severe migraine). chlorzoxazone (PARAFON FORTE DSC) 500 mg tablet 20 tablet 5 Sig: Take 1 tablet by mouth two times a day as needed for muscle spasm (migraine). ZOLMitriptan (ZOMIG) 5 mg nasal spray 12 each 5 Sig: Use 1 Helix in the nose as needed at onset of migraine headache. If symptoms persist or return, may repeat dose in other nostril after 2 hours. Maximum of 2 sprays per 24 hours Last visit 05/03/2024 with Sherif HERNANDEZ Next scheduled Visit date not found [facility] 06-03-2024 Miscellaneous Notes Requesting refills as follows: Requested Prescriptions Pending Prescriptions Disp Refills magnesium oxide 400 mg magnesium cap 90 capsule 3 Sig: Take 1 capsule by mouth daily at bedtime. promethazine (PHENERGAN) 25 mg tablet 90 tablet 5 Sig: Take 1 tablet by mouth every 4 hours as needed. FOR NAUSEA keTORolac (TORADOL) 10 mg tablet 20 tablet 5 Sig: Take 1 tablet by mouth every 6 hours as needed (severe migraine). chlorzoxazone (PARAFON FORTE DSC) 500 mg tablet 20 tablet 5 Sig: Take 1 tablet by mouth two times a day as needed for muscle spasm (migraine). ZOLMitriptan (ZOMIG) 5 mg nasal spray 12 each 5 Sig: Use 1 Helix in the nose as needed at onset of migraine headache. If symptoms persist or return, may repeat dose in other nostril after 2 hours. Maximum of 2 sprays per 24 hours Last visit 05/03/2024 with Sherif HERNANDEZ Next scheduled Visit date not found documented in this encounter [facility] 05-21-2024 History of Present illness Narrative Images from the original note were not included. [facility] [address] [place] [address] [place] [address] Patient: April Nicholson Date of : 1995 Encounter Date: 05/21/2024 Subjective: Chief Complaint Chief Complaint Patient presents with sinus infection History of Present Illness April Nicholson is a 28 y.o. female, established patient, that presents to the office for acute sinus congestion. History provided by patient. Sinus Problem This is a new problem. Episode onset: 4 days ago. Maximum temperature: [place] feverish. Associated symptoms include chills (With associated sweats), congestion, coughing, diaphoresis, ear pain, headaches (Located above eyes), a hoarse voice, shortness of breath, sinus pressure, sneezing and swollen glands. Pertinent negatives include no sore throat. Treatments tried: Benadryl at nighttime, claritin D. Asthma She complains of chest tightness, cough, hoarse voice, shortness of breath and wheezing. This is a new problem. Episode onset: 4 days ago with nasal symptoms. The problem has been rapidly worsening. The cough is non-productive (Harsh cough with dry heaving). Associated symptoms include ear pain, headaches (Located above eyes) and sneezing. Pertinent negatives include no sore throat. Her symptoms are alleviated by beta-agonist (Breathing treatment help but feels at three hour genaro that she is ready for another treatment. On cetirizine 10 mg daily , Trelegy 200/62.5/25 mch 1 puff daily). Her past medical history is significant for asthma. Review of Systems Review of Systems Constitutional: Positive for chills (With associated sweats) and diaphoresis. HENT: Positive for congestion, ear pain, hoarse voice, sinus pressure and sneezing. Negative for sore throat. Respiratory: Positive for cough, shortness of breath and wheezing. Neurological: Positive for headaches (Located above eyes). Vital Signs BP 130/90 (BP Site: Left Arm, BP Postition: Sitting) Pulse 106 Temp 36.6 C (97.8 F) (Oral) Wt 107 kg (236 lb) LMP (LMP Unknown) SpO2 98% BMI 46.09 kg/m Physical Exam Physical Exam Vitals reviewed. Constitutional: General: She is not in acute distress. Appearance: She is ill-appearing. She is not toxic-appearing. HENT: Head: Normocephalic. Salivary Glands: Right salivary gland is tender. Right salivary gland is not diffusely enlarged. Left salivary gland is tender. Left salivary gland is not diffusely enlarged. Right Ear: A middle ear effusion (Serous) is present. Tympanic membrane is injected and bulging. Left Ear: A middle ear effusion (Serous) is present. Tympanic membrane is injected and bulging. Nose: Right Turbinates: Not enlarged or swollen. Left Turbinates: Enlarged and swollen. Right Sinus: Maxillary sinus tenderness and frontal sinus tenderness present. Left Sinus: Maxillary sinus tenderness and frontal sinus tenderness present. Mouth/Throat: Lips: [place]. No lesions. Mouth: Mucous membranes are moist. Pharynx: Oropharynx is clear. No pharyngeal swelling, oropharyngeal exudate, posterior oropharyngeal erythema, uvula swelling or postnasal drip. Tonsils: No tonsillar exudate. 1+ on the right. 1+ on the left. Eyes: Conjunctiva/sclera: Right eye: Right conjunctiva is not injected. No exudate. Left eye: Left conjunctiva is not injected. No exudate. Cardiovascular: Rate and Rhythm: Normal rate and regular rhythm. Heart sounds: No murmur heard. Pulmonary: Effort: No tachypnea, bradypnea, accessory muscle usage or respiratory distress. Breath sounds: No stridor, decreased air movement or transmitted upper airway sounds. Examination of the right-upper field reveals rhonchi. Examination of the left-upper field reveals rhonchi. Rhonchi present. No decreased breath sounds, wheezing or rales. Abdominal: General: Bowel sounds are normal. Palpations: Abdomen is soft. Musculoskeletal: Cervical back: Neck supple. Lymphadenopathy: Cervical: No cervical adenopathy. Past Medical, Family, Surgery and Social History Past Medical History: Diagnosis Date Anxiety Asthma BV (bacterial vaginosis) Depression Migraine 15 days out of the month-receives an infusion every 3 months MRSA (methicillin resistant Staphylococcus aureus) In a buttocks wound in 8th grade Ovarian cyst, bilateral 03/25/2024 Prolonged emergence from general anesthesia Seizure ([facility]) Last one 03-11-2024 Past Surgical History: Procedure Laterality Date APPENDECTOMY SECTION CHOLECYSTECTOMY [facility] LYSIS OF ADHESIONS N/A 03/28/2024 Performed by Mundo Martinez MD at [facility] LYSIS OF ADHESIONS N/A 03/28/2024 Performed by Jesse Sultana MD at [facility] SALPINGO OOPHORECTOMY/FROZEN SECTION Bilateral 03/28/2024 Performed by Mundo Martinez MD at [facility] DILATION AND CURETTAGE OF UTERUS PARTIAL HYSTERECTOMY 10/01/2021 TUBAL LIGATION Family History Problem Relation Age of Onset Anesthesia problems Mother Prolonged emergence Cystic fibrosis Mother Anesthesia problems Father prolonged emergence Cystic fibrosis Father Ovarian cancer Maternal Aunt Social History Socioeconomic History Marital status: Single [...] at all Food Insecurity: No Food Insecurity (05/21/2024) Hunger Screening Food Insecurity - Worry: Never True Food Insecurity - Inability: Never True Transportation Needs: No Transportation Needs (04/08/2024) PRAPARE - Transportation Lack of Transportation (Medical): No Lack of Transportation (Non-Medical): No Physical Activity: Insufficiently Active (01/23/2024) Received from [facility] Exercise Vital Sign Days of Exercise per Week: 7 days Minutes of Exercise per Session: 10 min Stress: Stress Concern Present (01/23/2024) Received from [facility] [place] [facility] [employer] [facility] - Occupational Stress Questionnaire Feeling of Stress : Rather much Social Connections: Socially Integrated (01/23/2024) Received from [facility] Social Connection and Isolation Panel [NHANES] Frequency of Communication with Friends and Family: More than three times a week Frequency of Social Gatherings with Friends and Family: Twice a week Attends Orthodox Services: More than 4 times per year [...] Risk (04/08/2024) Housing Instability Housing Instability: No Allergies and Current Medications Allergies Allergen Reactions Bee Venom Protein (Honey [...] [Azithromycin] Hives Buspirone Hives Compazine [Prochlorperazine] Anxiety Eptinezumab-[place] north Itching and Rash Patient described extreme itching located on her chest and arms (bilaterally). Reglan [Metoclopramide Hcl] Itching and Anxiety No rash Current Outpatient Medications on File Prior to Visit Medication Sig acetaminophen (TYLENOL EXTRA STRENGTH) 500 mg tablet Take 2 tablets (1,000 mg total) by mouth every 6 (six) hours as needed for pain. albuterol (PROVENTIL,VENTOLIN) 2.5 mg /3 mL (0.083 %) nebulizer solution Inhale 3 mL (2.5 mg total) by nebulization 4 (four) times a day as needed for wheezing. albuterol (VENTOLIN HFA) 90 mcg/actuation inhaler INHALE TWO PUFFS BY MOUTH EVERY 4 HOURS NEEDED baclofen (LIORESAL) 10 mg tablet Take 1 tablet (10 mg total) by mouth nightly. cetirizine (ZyrTEC) 10 mg tablet Take 1 tablet (10 mg total) by mouth in the morning. diazePAM (VALIUM) 10 mg tablet Take 0.5 tablets (5 mg total) by mouth in the morning and at bedtime. estradioL (ESTRACE) 1 mg tablet Take 1 tablet (1 mg total) by mouth in the morning. jsvsvxvwddb-msgyqbmmy-otxmywig (TRELEGY ELLIPTA) 200-62.5-25 mcg blister with device Inhale 1 puff in the morning. ibuprofen (MOTRIN) 800 mg tablet Take 1 tablet (800 mg total) by mouth 3 (three) times a day. ketoconazole (NIZORAL) 2 % shampoo Apply 1 Application topically 2 (two) times a week. Apply to damp skin, lather, leave on 5 minutes, and rinse lamoTRIgine (LaMICtal) 200 mg tablet Take 1 tablet (200 mg total) by mouth in the morning and 1 tablet (200 mg total) before bedtime. lidocaine (XYLOCAINE) 5 % ointment Apply 1 Application topically as needed for pain. lithium carbonate 300 mg tablet Take 2 tablets (600 mg total) by mouth nightly. ondansetron ODT (ZOFRAN ODT) 4 mg disintegrating tablet Dissolve 1 tablet (4 mg total) on tongue every 6 (six) hours as needed for nausea or vomiting for up to 30 days. scopolamine (TRANSDERM-SCOP) 1 mg/[address] 1 patch on the skin every third day. traZODone (DESYREL) 300 MG tablet Take 1 tablet (300 mg total) by mouth nightly. ubrogepant (UBRELVY) 100 mg tablet Take 1 tablet at onset of migraine/headache. May repeat dose in 2 hours if needed. Do NOT take more than 2 tablets in 24 hours. Max dose is 200 mg in 24 hours. Current Facility-Administered Medications on File Prior to Visit Medication diazePAM (VALIUM) tablet 5 mg Assessment/Plan: 1. Moderate persistent asthma with acute exacerbation - amoxicillin-pot clavulanate (AUGMENTIN) 875-125 mg per tablet; Take 1 tablet by mouth in the morning and 1 tablet before bedtime. Do all this for 10 days. Dispense: 20 tablet; Refill: 0 - predniSONE (DELTASONE) 20 mg tablet; Take 1 tablet (20 mg total) by mouth in the morning for 5 days. Dispense: 5 tablet; Refill: 0 2. Acute pansinusitis, recurrence not specified - amoxicillin-pot clavulanate (AUGMENTIN) 875-125 mg per tablet; Take 1 tablet by mouth in the morning and 1 tablet before bedtime. Do all this for 10 days. Dispense: 20 tablet; Refill: 0 - loratadine-pseudoephedrine (CLARITIN-D 24-hour) 10-240 mg per 24 hr tablet; Take 1 tablet by mouth in the morning for 21 days. Dispense: 21 tablet; Refill: 0 3. Antibiotic-induced yeast infection - fluconazole (DIFLUCAN) 150 mg tablet; Take 1 tablet (150 mg total) by mouth once for 1 dose. Dispense: 1 tablet; Refill: 0 Patient's symptoms consistent with acute asthma exacerbation as having to use nebulizer treatments more frequently and not getting full relief from symptoms. She also has symptoms of acute pansinusitis. Given patient's history and significant symptoms that she has experienced, have elected to start her on an antibiotic Augmentin 875/1251 tablet twice daily for 10 days to treat for a bacterial sinus infection as we will cover respiratory pathogens. Continue with Claritin D 1 tablet daily as needed for nasal symptoms. For breathing, in addition to the antibiotic we will start on prednisone 20 mg 1 tablet daily for 5 days. She is to continue to use her nebulizer machine up to every 4 hours as needed for shortness of breath and wheezing. He is also to continue with Trelegy inhaler 1 puff daily. Patient with multiple allergies to medications including antibiotics and dexamethasone. Reviewed with patient if she had previous reactions to either Augmentin or prednisone which she denied prior to send new prescriptions into the pharmacy. Patient states that she does get antibiotic induced vaginal yeast infection so fluconazole 150 mg 1 tablet by mouth once was prescribed for her to take as needed for yeast infection. Patient Instructions Start on antibiotic Augmentin 875/125 mg 1 tablet twice daily for 10 days. Continue with Claritin-D 1 tablet daily as needed for nasal congestion. Added oral prednisone 20 mg daily for 5 days for increased respiratory symptoms. Continue with albuterol nebulizer treatments every 4 hrs as needed as well as trelegy inhaled daily Prescribed fluconazole to take if develops yeast infection from antibiotics Follow up: Keep June 06, 2024 appointment - Rajinder Cotton DO 05/21/24 10:30 AM documented in this encounter [facility] 05-21-2024 Instructions Rajinder Cotton DO - 05/21/2024 9:30 AM EDT Start on antibiotic Augmentin 875/125 mg 1 tablet twice daily for 10 days. Continue with Claritin-D 1 tablet daily as needed for nasal congestion. Added oral prednisone 20 mg daily for 5 days for increased respiratory symptoms. Continue with albuterol nebulizer treatments every 4 hrs as needed as well as trelegy inhaled daily Prescribed fluconazole to take if develops yeast infection from antibiotics documented in this encounter [facility] 05-15-2024 History of Present illness Narrative Subjective: April Nicholson is a 28 y.o. female who is s/p a laparoscopic BSO, FANNY on 03/28/24. Pathology: benign She unfortunately was admitted to [facility] on 04/08/24 after experiencing high fevers despite being on antibiotics. She was diagnosed with peritonitis and possible abscess. This was drained and she was placed on antibiotics which she completed that at home upon discharge. She has struggled with pain in wound healing over the next several weeks with extensive medication counseling provided. She presents today in good spirits and states she is no longer taking pain medication, pain is resolved, overall feeling much better. She is having trouble with getting the estrogen patches to stick and remembering which she has to take it. She states she is interested in oral tablets instead. She has met with her migraine and epilepsy provider and feels she is on a more stable plan with symptoms improved. Patient was originally a consultation from Dr. Blas for evaluation and management of ovarian cysts. She has a history of hysterectomy in 2021 for chronic pelvic pain and pathology was benign. Oncology History No history exists. April Nicholson [...] History: Procedure Laterality Date APPENDECTOMY SECTION CHOLECYSTECTOMY [facility] LYSIS OF ADHESIONS N/A 03/28/2024 Performed by Mundo Martinez MD at [facility] KADI5 LYSIS OF ADHESIONS N/A 03/28/2024 Performed by Jesse Sultana MD at [facility] SALPINGO OOPHORECTOMY/FROZEN SECTION Bilateral 03/28/2024 Performed by Mundo Martinez MD at [facility] DILATION AND CURETTAGE OF UTERUS PARTIAL HYSTERECTOMY [...] Aunt Social History Socioeconomic History Marital status: Single Tobacco Use Smoking status: Never Smokeless tobacco: [...] at all Food Insecurity: No Food Insecurity (05/04/2024) Hunger Screening Food Insecurity - Worry: Never True Food Insecurity - Inability: Never True Transportation Needs: No Transportation Needs (04/08/2024) PRAPARE - Transportation Lack of Transportation (Medical): No Lack of Transportation (Non-Medical): No Physical Activity: Insufficiently Active (01/23/2024) Received from [facility] Exercise Vital Sign Days of Exercise per Week: 7 days Minutes of Exercise per Session: 10 min Stress: Stress Concern Present (01/23/2024) Received from [facility] [place] [employer]ational Health - Occupational Stress Questionnaire Feeling of Stress : Rather much Social Connections: Socially Integrated (01/23/2024) Received from [facility] Social Connection and Isolation Panel [NHANES] Frequency of Communication with Friends and Family: More than three times a week Frequency of Social Gatherings with Friends and Family: Twice a week Attends Orthodox Services: More than 4 times per year [...] items are noted in HPI. Objective: BP 135/72 Pulse 98 Temp 36.7 C (98.1 F) (Oral) Resp 18 Ht 152.4 cm (5') Wt 107.7 kg (237 lb 6.4 oz) LMP (LMP Unknown) SpO2 98% BMI 46.36 kg/m ECO- Symptomatic; fully ambulatory General appearance: alert, appears stated age and cooperative Head: Normocephalic, without obvious abnormality, atraumatic Lungs: clear to auscultation bilaterally Heart: regular rate and rhythm, S1, S2 normal, no murmur, click, rub or gallop Abdomen: soft, nontender, incisions c/d/I, skin is closed, dry, no evidence for infection. Extremities: extremities normal, atraumatic, no cyanosis or [...] anomaly not found LOC (loss of consciousness) ([facility]) Migraine with aura and without status migrainosus, not intractable Bilateral occipital neuralgia Asthma without status asthmaticus Anxiety Depressive disorder Psychogenic nonepileptic seizure Acute cough S/P bilateral salpingo-oophorectomy Abdominal wall cellulitis Postoperative surgical complication involving genitourinary system associated with genitourinary procedure Plan: Post op care - she is well healed and may resume normal activities. Reviewed pathology which was benign. She will resume well woman care with Dr. Blas. Post op pain: resolved, no longer taking pain medication per patient report. Menopausal symptoms: Currently on estradiol 0.05 mg patches twice weekly. She is having difficulty remembering to change the patch is on appropriate days and they are not sticking. She prefers to switch to oral tablets. We discussed the risk of estrogen tablets interfering with her seizure medication efficacy. We also discussed the slight increase in adverse events including stroke, heart attack, DVT, breast cancer in oral estradiol use vs transdermal. She accepts these risks and would like to switch to a daily estrogen tablet. This may be continued by her PCP or primary food and beverage intern. Estradiol 1 mg tablet once daily PO. *The patient has a documented plan of care to address pain. All questions were answered to the patient's satisfaction. She is agreeable to this plan of care. *This note was completed using a voice cargo broker system. Every effort was made to ensure accuracy. However, inadvertent computerized cargo broker errors may be present. .Total time spent was 15 minutes: Preparing to see the patient (e.g., review of tests) Performing a medically appropriate examination and/or evaluation Counseling and educating the patient/family/caregiver Ordering medications, tests, or procedures Documenting clinical information in the electronic or other health record Care coordination (not separately reported) Svetlana Ye PA-C, RD, IF MARY Cintron 05/15/24 0913 documented in this encounter [facility] 05-13-2024 Telephone encounter Note Ambulatory Pharmacy Prior Authorization Note Provider Intervention Required?: No - Pharmacy completed on your behalf. Was the PA documented within the ePA workqueue?: No Rx Plan: Medicaid MCO ([facility]) Drug: Ubrelvy 100MG tablets Cover My Meds Chong: [id number] Determination: Approved Prior Authorization/Case #: [id number] Prior Authorization Expiration: 05/07/24 Time to PA Submission in CMM: 15 [...] refills. Prescriptions will now be processed through [facility] Delivery Pharm[facility] for determination of next steps. For questions relating to this submission, please contact [facility] Pharmacy at [phone] [facility] Work Phone: 05-13-2024 Miscellaneous Notes Ambulatory Pharmacy Prior Authorization Note Provider Intervention Required?: No - Pharmacy completed on your behalf. Was the PA documented within the ePA workqueue?: No Rx Plan: Medicaid MCO ([facility]) Drug: Ubrelvy 100MG tablets Cover My Meds Chong: [id number] Determination: Approved Prior Authorization/Case #: [id number] Prior Authorization Expiration: 05/07/24 Time to PA Submission in CMM: 15 [...] refills. Prescriptions will now be processed through [facility] Delivery Pharm[facility] for determination of next steps. For questions relating to this submission, please contact [facility] at [phone] [facility] received prescription(s) for Ubrelvy 100MG tablets . Benefits investigation was conducted, indicating that a prior authorization is required. All pertinent clinical information was submitted to insurance. Epic- Referral # [id number] Angely Cotton RN [facility] P: , F: Dr Lepe , Pt's ubrelvy needs a PA . I am unable to complete a PA since your office note is unfinished. Please let me know when you have completed it and I will put in the PA tanner. Thanks! Angely Cotton RN [facility] P: , F: documented in this encounter [facility] 05-08-2024 Telephone encounter Note [facility] received prescription(s) for Ubrelvy 100MG tablets . Benefits investigation was conducted, indicating that a prior authorization is required. All pertinent clinical information was submitted to insurance. Epic- Referral # [id number] Angely Cotton RN [facility] P: , F: [facility] 05-07-[address] Lepe , Pt's ubrelvy needs a PA . I am unable to complete a PA since your office note is unfinished. Please let me know when you have completed it and I will put in the PA tanner. Thanks! Angely Cotton RN [facility] Pharmacy P: , F: [facility] 05-03-2024 Instructions Curtis Lepe PA-Gilson - 05/03/2024 9:57 AM EDT Ubrogepant (Ubrelvy) 50 mg or 100 mg tablet CGRP antagonist. Take 1 tablet at onset of migraine/headache. May repeat dose in 2 hours if needed. Do NOT take more than 2 tablets in 24 hours. Max dose is 200 mg in 24 hours. Potential side effects include drowsiness, nausea and dry mouth. PATIENT ASSISTANCE PROGRAM (PAP): https://www.[employer].com/patients/ patient-support/patient-assistan ce/eligibility-criteria.html#jose shannankaro - Start taking Ubrelvy as prescribed for migraine relief; it will be delivered to your home. - Use either Ubrelvy or Zomig for migraine relief, but not both at the same time. - Monitor for any side effects from Ubrelvy, such as drowsiness or nausea, and report any severe side effects. - Continue with your scheduled Vyepty infusions. Your clinician will discuss pre-treatment with Benadryl with the supervising physician and update you on any changes. - Follow up with your clinician as needed. documented in this encounter [facility] 05-03-2024 History of Present illness Narrative Images from [...] visit. Either the patient or their legal graphic art sales representative has been informed of the [...] Aura and Without Status Migrainosus Chief Complaint: Impression and Plan from last visit on 12/05/2023 with Ольга: IMPRESSION: Intractable chronic migraine without aura and [...] if headache is present Interval Headache History: April is a 28-year-old female with a history of migraines presenting for follow-up. April reports experiencing a migraine today, accompanied by facial flushing. She has been receiving Vyepti infusions for migraine management, which she states have been the only effective treatment, providing relief for about two months. However, during the third month, she experiences worsening migraines that present in clusters. She notes that even during the effective period, she still has migraines, but they are less severe. She has received Vyepti infusions three treatments and reports consistent itching on her face, chest, under her chin, and the tips of her fingers during each infusion. She does not endorse any hives, shortness of breath, or throat tightness. She suspects the itching may be related to anxiety triggered by the infusion, as she experiences similar symptoms with anxiety. She takes diazepam before the infusions to manage anxiety. The itching resolves with IV Benadryl, and she suggests premedication with Benadryl before future infusions. For acute migraine management, she uses Zomig nasal spray and Toradol as needed. She expresses interest in adding another rescue medication for the last month when her migraines worsen. She has previously tried Nurtec without success. She also reports persistent nausea, which she attributes to both migraines and recent surgery for oophorectomy. She has been using Phenergan for nausea but finds it causes drowsiness. She mentions that a scopolamine patch used postoperatively was effective for her nausea and expresses interest in using it as an alternative to Phenergan. She recently switched from trazodone to amitriptyline 100 mg for sleep, as prescribed by her psychiatrist. She has been taking half the dose (50 mg) due to excessive sedation at the full dose. She has discontinued Caplyta. Vyepti treatment yesterday: Patient began itching 20 minutes into vyepti [...] vyepti infusions, patient has had similar reactions. Preventative: Vyepti 100 mg every 3 months lmaictal 200mg daily Rescue: zomig nasal spray, phenergan Headache 1 Location: holcephalic Quality/Description: throbbing and pressure Associated Symptoms: Photophobia: yes Phonophobia: yes Nausea: yes Vomiting: yes Other symptoms: osmophobia Worse with activity: yes Number of migraine headache days/month: 7 Migraine headache severity: 10/10 Number of headache free days/month: 14 Duration of headaches with treatment: 13 days (312 hours) Triggers: stress, weather changes, fasting/hunger and dehydration Onset of headache to peak: varies Positional changes: no Most common time of day for headache to begin: evening Aura: blurred vision Allodynia: yes Days missed from work or school in the last month: 15 days Headache status since the last visit: worse Prior Therapies Duration of Use Dose Reason for Discontinuation Analgesic Ketorolac (Toradol) Anti-Convulsant Lamotrigine (Lamictal) Topiramate (Topamax, Trokendi XL, Qudexy) Anti-Depressant and Antipsychotic Amitriptyline (Elavil) Haugan (Eskalith, Lithobid) Nortriptyline (Pamelor, Aventyl) Anti-Migraine Dihydroergotamine [...] Pyrilamine-Dextrome* Hives Reglan [Metoclopram* Intolerance Vortioxetine Hives Vyepti [Eptinezumab* Rash, Itching Patient described extreme itching located on her chest and arms (bilaterally). Prochlorperazine Intolerance Current Medications: ubrogepant (UBRELVY) 100 mg tablet^Take 1 tablet at onset of migraine/headache. May repeat dose in 2 hours if needed. Do NOT take more than 2 tablets in 24 hours. Max dose is 200 mg in 24 hours.^Disp: 16 tablet^Rfl: 5 ZOLMitriptan (ZOMIG) 5 mg nasal spray^Use 1 Helix in the nose as needed at onset [...] mouth daily at bedtime.^Disp: 90 capsule^Rfl: 3 lithium carbonate 300 mg tablet^^Disp: ^Rfl: lamoTRIgine (LAMICTAL) 150 mg tablet^^Disp: ^Rfl: diazePAM (VALIUM) 10 mg tablet^^Disp: ^Rfl: I have reviewed the Health Status Assessment responses and discussed these with the patient: yes Curtis Lepe PA-C HEADACHE SCORES: 01/17/2024 03/20/2024 05/03/2024 Headache Questions ER visits since last office visit: 3 3 3 Hospital stays since last office visit 0 0 0 Limited ADLs in the last month: 20 12 16 Days missed from work or school in the last month: 15 0 Days headache pain free in the last month: 7 14 Days per month with ALL of the following symptoms - decreased productivity, light sensitivity and nausea: 20 7 15 Initial improvement of headache after botox [...] visit: Much worse Minimally improved No change 01/17/2024 03/20/2024 05/03/2024 HIT-6 HIT-6 74 (Severe impact) 72 (Severe impact) 78 (Severe impact) 01/17/2024 03/20/2024 05/03/2024 OMID - 2/7 SCORES OMID-2 Score 2 2 2 2 01/17/2024 03/20/2024 05/03/2024 Migraine Specific QOL - Higher scores indicate better HRQL Role Function-Restrictive Transformed Score (range: 0-100) 0 20 40 Role Function-Preventive Transformed Score (range: 0-100) 5 35 40 Emotional Function Transformed Score (range: 0-100) 0 13.33 40 01/17/2024 03/20/2024 05/03/2024 PHQ-9 Score 9 9 12 9 Studies to Review: No MRI Head/Brain - [...] No resulted procedures found. Labs to Review: Yes - Most recent CMP/BMP and CBC below CMP: Latest Ref Rng & Units 04/01/2022 CMP [...] Alkaline Phosphatase 34 - 123 U/L 84 CBC: Latest Ref Rng & Units 04/01/2022 CBC [...] Lymph 1.00 - 4.00 k/uL 0.84 Abs [place] <0.87 k/uL 0.06 Abs Eosin <0.46 k/uL <0.03 Abs Baso <0.11 k/uL <0.03 NRBC /100 WBC 0.0 New Health Issues: Yes, see HPI New Family History: No Review of Systems: Review of system: unchanged [...] spontaneous and fluent without dysarthria. Short and bed bug exterminator memory, cognition and general fund of [...] and with status migrainosus (primary encounter diagnosis) Nausea Generalized anxiety disorder 1. Intractable chronic migraine without aura and with status migrainosus (G43.711) - Patient experiences significant relief from Vyepti infusions, though the last month before the next scheduled infusion is marked by severe migraines. - Reports pruritus during Vyepti infusions, managed with IV Benadryl; no associated rash, dyspnea, or throat tightness. - Discussed potential allergic reaction versus anxiety-induced pruritus; patient takes diazepam prior to infusions to manage anxiety. - Will consult with supervising physician and infusion clinic regarding premedication with IV Benadryl prior to Vyepti infusions. - Prescribed Ubrelvy as an additional rescue medication; instructed patient on administration and potential side effects. - Will monitor for any changes in treatment plan and communicate updates to the patient. 2. Nausea (R11.0) - Currently managed with Phenergan; patient reports drowsiness as a side effect. - Discussed potential use of scopolamine patch for severe nausea; will review patient's history and consult with supervising physician before making a recommendation. - Advised patient on the anticholinergic effects of scopolamine and the importance of using it only for severe cases. 3. Generalized anxiety disorder (F41.1) - Anxiety may contribute to pruritus during Vyepti infusions. - Continues to manage anxiety with diazepam; advised on deep breathing exercises and positive visualization during infusions. - Will monitor anxiety symptoms in relation to migraine treatment and adjust management as needed. I spoke with nursing staff in our infusion clinic. That noted pruritus as well as diffuse scratch pepe. We will request a precertification for a Calcitonin Gene-Related Peptide Receptor Antagonist (GEPANT) Ubrogepant for the rescue treatment of chronic migraine . This patient meets ICHD-3 criteria for treatment of migraine with a small molecule CGRP antagonist GEPANT. The FDA has approved GEPANTS for the treatment of migraine. Specifically, the patient has 16 headaches per month, lasting 4 or more hours/day associated with photophobia, phonophobia, nausea for three or more months. Medication overuse headache has been ruled out.Patient will not use with another GEPANT. The patient has tried and failed the following : The following preventative medications have been tried without benefit: Anti-Convulsant Lamotrigine (Lamictal) Topiramate (Topamax, Trokendi XL, Qudexy) Anti-Depressant and Antipsychotic Amitriptyline (Elavil) Haugan (Eskalith, Lithobid) Nortriptyline (Pamelor, Aventyl) Blood Pressure Propranolol (Inderal) MABs Fremanezumab (Ajovy) Galcanezumab (Emgality) Botulinum Toxin Onabotulinum Toxin A (Botox) Supplements Magnesium The following abortive medications have been tried but require high frequency use which can lead to Medication Overuse Headache: Analgesic Ketorolac (Toradol) Anti-Migraine Dihydroergotamine (DHE-45, Migranal) Naratriptan (Amerge) Sumatriptan (Imitrex, Sumavel) Zolmitriptan (Zomig) Prior Authorization: April Nicholson has been previously [...] XL, Qudexy) Anti-Depressant and Antipsychotic Amitriptyline (Elavil) Haugan (Eskalith, Lithobid) Nortriptyline (Pamelor, Aventyl) Blood Pressure Propranolol (Inderal) MABs Fremanezumab (Ajovy) Galcanezumab (Emgality) Botulinum Toxin Onabotulinum Toxin A (Botox) Supplements Magnesium The following abortive medications have been tried but require high frequency use which can lead to Medication Overuse Headache: Analgesic Ketorolac (Toradol) Anti-Migraine Dihydroergotamine (DHE-45, Migranal) Naratriptan (Amerge) Sumatriptan (Imitrex, Sumavel) Zolmitriptan (Zomig) MEDICATION TREATMENT: Medications to Start Taking ubrogepant (UBRELVY) 100 mg tablet Take 1 tablet at onset of migraine/headache. May repeat dose in 2 hours if needed. Do NOT take more than 2 tablets in 24 hours. Max dose is 200 mg in 24 hours. RESEARCH: None at this time Follow-up: 2 months and call office ([phone]) with problems or concerns before appointment Level of Service: Virtual Visit 35 minutes The patient consented to the use of Prosetta software for draft documentation of the visit consistent with [facility] s Notice of Privacy Practices. This note was partially generated using [employer] voice recognition system, and there may be some incorrect words, spellings, and punctuation that were not noted in checking the note before saving. Curtis Lepe PA-C Headache Section [facility] May 03, 2024 documented in this encounter [facility] 05-03-2024 Note HNO ID: [id number] Author: CURTIS LEPE PA-C Service: ? Author Type: Physician Chapter Relations Administrator Type: Progress Notes Filed: 05/08/2024 00:02 Note Text: Headache Center - Follow up [...] visit. Either the patient or their legal graphic art sales representative has been informed of the [...] Aura and Without Status Migrainosus Chief Complaint: Impression and Plan from last visit on 12/05/2023 with Ольга: IMPRESSION: Intractable chronic migraine without aura and [...] if headache is present Interval Headache History: April is a 28-year-old female with a history of migraines presenting for follow-up. April reports experiencing a migraine today, accompanied by facial flushing. She has been receiving Vyepti infusions for migraine management, which she states have been the only effective treatment, providing relief for about two months. However, during the third month, she experiences worsening migraines that present in clusters. She notes that even during the effective period, she still has migraines, but they are less severe. She has received Vyepti infusions three treatments and reports consistent itching on her face, chest, under her chin, and the tips of her fingers during each infusion. She does not endorse any hives, shortness of breath, or throat tightness. She suspects the itching may be related to anxiety triggered by the infusion, as she experiences similar symptoms with anxiety. She takes diazepam before the infusions to manage anxiety. The itching resolves with IV Benadryl, and she suggests premedication with Benadryl before future infusions. For acute migraine management, she uses Zomig nasal spray and Toradol as needed. She expresses interest in adding another rescue medication for the last month when her migraines worsen. She has previously tried Nurtec without success. She also reports persistent nausea, which she attributes to both migraines and recent surgery for oophorectomy. She has been using Phenergan for nausea but finds it causes drowsiness. She mentions that a scopolamine patch used postoperatively was effective for her nausea and expresses interest in using it as an alternative to Phenergan. She recently switched from trazodone to amitriptyline 100 mg for sleep, as prescribed by her psychiatrist. She has been taking half the dose (50 mg) due to excessive sedation at the full dose. She has discontinued Caplyta. Vyepti treatment yesterday: Patient began itching 20 minutes into vyepti [...] vyepti infusions, patient has had similar reactions. Preventative: Vyepti 100 mg every 3 months lmaictal 200mg daily Rescue: zomig nasal spray, phenergan Headache 1 Location: holcephalic Quality/Description: throbbing and pressure Associated Symptoms: Photophobia: yes Phonophobia: yes Nausea: yes Vomiting: yes Other symptoms: osmophobia Worse with activity: yes Number of migraine headache days/month: 7 Migraine headache severity: 10/ (more content not included)... [facility] 05-02-2024 Note HNO ID: [id number] Author: CLAUDIA MAYNARD RN Service: ? Author Type: Registered Nurse Type: Progress Notes Filed: 05/02/2024 15:03 Note Text: Patient arrived to infusion suite [...] and agreeable to plan. Patient discharged to certified driver examiner. [facility] 05-02-2024 History of Present illness Narrative Patient [...] and agreeable to plan. Patient discharged to certified driver examiner. documented in this encounter [facility] 04-30-2024 Miscellaneous Notes Attempted to contact patient regarding refill sent in. No answer, left voicemail. documented in this encounter [facility] 04-30-2024 Telephone encounter Note Attempted to contact patient regarding refill sent in. No answer, left voicemail. [facility] 04-29-2024 History of Present illness Narrative Patient called asking for refill of oxycodone for post op pain. Upon reviewing her OARRS it would appear she had Tylenol III refilled last week at [facility] [place] [place]. Discussed this with patient who states [...] post op pain. She expressed understanding. Called [facility] after completing phone call with patient. Pharmacy staff confirmed prescription for Tylenol III was picked up on 04/22/24 with a receipt available to view. MARY Cintron 04/29/24 1440 documented in this encounter [facility] 04-29-2024 History of Present illness Narrative The OARRS/MAPPS database was reviewed today and found to be appropriate. No indication of medication diversion, or non compliance. SARAHI Champion 04/29/24 0918 documented in this encounter [facility] 04-25-2024 History of Present illness Narrative Images from the original note were not included. [address] [place] [id number] Patient: April Nicholson Date of : 1995 Encounter Date: 04/25/2024 SUBJECTIVE: HISTORY OF PRESENT ILLNESS: Chief Complaint: Chief Complaint Patient presents with [facility] Patient ID: April is a 28 y.o. female New patient here to [facility] new primary care provider Past medical history notable for bipolar type 1 disorder, migraine headaches, see order, asthma. Surgical history is notable for appendectomy, , cholecystectomy, recent hysterectomy. Patient follows: Followed Oncology for Right ovarian mass: is status post BSO on 03/28/2024 Neurology for seizure disorder: On Lamictal and Valium. Pulmonolgy - Dewey, Asthma, on Trelegy Psychiatry - Dr. Scanlon - lithium Has lost a significant amount of weight from 290's about 4 years ago, no won 232lbs. Had extensive history of Nausea and emesis with inability to tolerate PO intake Completed Gastroenterology for scope which was unremarkable. Wanted CT scan, but was denied by insurance. Then follows Dr. 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 Has episodes of zoning out. No history of Sleep Study Support system is fragmented -parents -Tenriism -2 fathers of childrens - not interested in being involved. PAST MEDICAL HISTORY: Past Medical History: Diagnosis Date Anxiety Asthma BV (bacterial vaginosis) Depression Migraine 15 days out of the month-receives an infusion every 3 months MRSA (methicillin resistant Staphylococcus aureus) In a buttocks wound in 8th grade Ovarian cyst, bilateral 03/25/2024 Prolonged emergence from general anesthesia Seizure ([facility]) Last one 03-11-2024 PAST SURGICAL HISTORY: Past Surgical History: Procedure Laterality Date APPENDECTOMY SECTION CHOLECYSTECTOMY [facility] [id number] LYSIS OF ADHESIONS N/A 03/28/2024 Performed by Mundo Martinez MD at [facility] DV5 LYSIS OF ADHESIONS N/A 03/28/2024 Performed by Jesse Sultana MD at [facility] DV5 SALPINGO OOPHORECTOMY/FROZEN SECTION Bilateral 03/28/2024 Performed by Mundo Martinez MD at [facility] DILATION AND CURETTAGE OF UTERUS PARTIAL HYSTERECTOMY [...] Physical Activity: Insufficiently Active (01/23/2024) Received from [facility] Exercise Vital Sign Days of Exercise per Week: 7 days Minutes of Exercise per Session: 10 min Stress: Stress Concern Present (01/23/2024) Received from [facility] [place] [employer] - Occupational Stress Questionnaire Feeling of Stress : Rather much Social Connections: Socially Integrated (01/23/2024) Received from [facility] Social Connection and Isolation Panel [NHANES] Frequency of Communication with Friends and Family: More than three times a week Frequency of Social Gatherings with Friends and Family: Twice a week Attends Orthodox Services: More than 4 times per year [...] mouth in the morning and at bedtime. nlsremhoqff-vhvxehivi-mpguxyny (TRELEGY ELLIPTA) 200-62.5-25 mcg blister with device [...] unremarkable. CORINE GOLD MD Family Medicine Physician [facility] Medicine / [facility] 04/25/24 This note was completed with voice recognition software. The document was reviewed for errors however some may still be present. Please do not hesitate to contact/Epic msg the author to verify any questions/concerns. documented in this encounter [facility] 04-24-2024 History of Present illness Narrative Images from the original note were not included. [facility] pharmacy notified. Spoke with Leonie. MARY Cintron RN Up to twice daily, thanks! Previous Messages ----- Message ----- From: Alice Wright RN Sent: 04/24/2024 2:17 PM EST To: MARY Cintron [facility] pharmacy called for clarification on the lidocaine cream. How many times a day can she the cream? Please advise. Thank you, Rubi documented in this encounter [facility] 04-24-2024 History of Present illness Narrative Subjective: April Nicholson is a 28 y.o. female who is s/p a laparoscopic BSO, FANNY on 03/28/24. Pathology: benign She unfortunately was admitted to [facility] on 04/08/24 after experiencing high fevers despite being on antibiotics. The patient stated that she completed a 7-day course of clindamycin post-operatively. One day prior to presentation to the ED, the patient had been evaluated at [facility] and was given 1 dose of bactrim [...] 03/28/2024 Performed by Mundo Martinez MD at [facility] DV5 LYSIS OF ADHESIONS N/A 03/28/2024 Performed by Jesse Sultana MD at [facility] DV5 SALPINGO OOPHORECTOMY/FROZEN SECTION Bilateral 03/28/2024 Performed by Mundo Martinez MD at [facility] DILATION AND CURETTAGE OF UTERUS PARTIAL HYSTERECTOMY [...] Physical Activity: Insufficiently Active (01/23/2024) Received from [facility] Exercise Vital Sign Days of Exercise per Week: 7 days Minutes of Exercise per Session: 10 min Stress: Stress Concern Present (01/23/2024) Received from [facility] [place] [facility] [employer] - Occupational Stress Questionnaire Feeling of Stress : Rather much Social Connections: Socially Integrated (01/23/2024) Received from [facility] Social Connection and Isolation Panel [NHANES] Frequency of Communication with Friends and Family: More than three times a week Frequency of Social Gatherings with Friends and Family: Twice a week Attends Orthodox Services: More than 4 times per year [...] anomaly not found LOC (loss of consciousness) ([facility]) Migraine with aura and without status migrainosus, not intractable Bilateral occipital neuralgia Asthma without status asthmaticus Anxiety Depressive disorder Seizure-like activity ([facility]) Simple partial seizure disorder ([facility]) Psychogenic nonepileptic seizure Acute cough S/P bilateral [...] *This note was completed using a voice cargo broker system. Every effort was made to ensure accuracy. However, inadvertent computerized cargo broker errors may be present. .Total time spent [...] Cintron 04/24/24 1228 documented in this encounter [facility] 04-22-2024 Telephone encounter Note Calls were returned to patient. Patient is scheduled for vyepti [facility] 04-22-2024 Miscellaneous Notes Calls were returned to patient. Patient is scheduled for vyepti documented in this encounter [facility] 04-16-2024 History of Present illness Narrative Reason [...] in female 12/19/2022 Mixed bipolar I disorder ([facility]) 01/24/2023 Chronic migraine without aura without status migrainosus, not intractable ([facility]) 01/24/2023 Generalized anxiety disorder ([facility]) 01/24/2023 Persistent disorder of initiating or maintaining sleep 01/24/2023 Mild persistent asthma ([facility]) 01/24/2023 Polycystic ovaries 01/24/2023 Psychogenic nonepileptic seizure ([facility]) 01/24/2023 Class 3 severe obesity due to excess calories without serious comorbidity with body mass index (BMI) of 50.0 to 59.9 in adult ([facility]) 03/21/2023 Mild persistent asthma with (acute) exacerbation ([facility]) 10/10/2023 Fatigue 01/01/2024 Encounter for long-term (current) [...] Acute exacerbation of asthma with allergic rhinitis (CMS/HCC) Allergies Asthma ([facility]/H[facility]) At low risk for fall Bipolar affective, mixed (HCC) ([facility]) Change in blood pressure Cholecystitis 2009 Depressive disorder (CMS/HCC) OMID (generalized anxiety disorder) ([facility]) History of hysterectomy 10/01/2021 Insomnia, persistent Migraines (CMS/HCC) Mild persistent asthma without complication ([facility]) Morbid obesity with BMI of 40.0-44.9, adult ([facility]) PCOS (polycystic ovarian syndrome) Right otitis media Seizures ([facility]) HISTORY PAST MEDICAL HISTORY SOCIAL HISTORY Past Medical History: Diagnosis Date Acute exacerbation of asthma with allergic rhinitis (CMS/HCC) Allergies Asthma ([facility]) At low risk for fall Bipolar affective, mixed (HCC) ([facility]) Change in blood pressure high and low Cholecystitis 2008 Chronic migraine without aura without status migrainosus, not intractable ([facility]) Depressive disorder (CMS/HCC) OMID (generalized anxiety disorder) ([facility]) History of hysterectomy 10/01/2021 Insomnia, persistent Migraines ([facility]/H[facility]) Mild persistent asthma without complication ([facility]) Morbid obesity with BMI of 40.0-44.9, adult ([facility]) PCOS (polycystic ovarian syndrome) Psychogenic nonepileptic seizure ([facility]) Right otitis media Seizures ([facility]) stressed induced Social History Tobacco Use Smoking [...] nursing note reviewed. Exam conducted with a pencil sorter present. Vitals: Estimated body mass index is [...] Zay Blas DO documented in this encounter [facility] 04-15-2024 History of Present illness Narrative Subjective: April Nicholson is a 28 y.o. female who is s/p a laparoscopic BSO, FANNY on 03/28/24. Pathology: benign She unfortunately was admitted to [facility] on 04/08/24 after experiencing high fevers despite being on antibiotics. The patient stated that she completed a 7-day course of clindamycin post-operatively. One day prior to presentation to the ED, the patient had been evaluated at [facility] and was given 1 dose of bactrim [...] History: Procedure Laterality Date APPENDECTOMY SECTION CHOLECYSTECTOMY [facility] LYSIS OF ADHESIONS N/A 03/28/2024 Performed by Mundo Martinez MD at [facility] LYSIS OF ADHESIONS N/A 03/28/2024 Performed by Jesse Sultana MD at [facility] SALPINGO OOPHORECTOMY/FROZEN SECTION Bilateral 03/28/2024 Performed by Mundo Martinez MD at [facility] DILATION AND CURETTAGE OF UTERUS PARTIAL HYSTERECTOMY 10/01/2021 TUBAL LIGATION Past Medical History: Diagnosis Date Anxiety Asthma BV (bacterial vaginosis) Depression Migraine 15 days out of the month-receives an infusion every 3 months MRSA (methicillin resistant Staphylococcus aureus) In a buttocks wound in 8th grade Ovarian cyst, bilateral 03/25/2024 Prolonged emergence from general anesthesia Seizure ([facility]) Last one 03-11-2024 Family History Problem Relation [...] Physical Activity: Insufficiently Active (01/23/2024) Received from [facility] Exercise Vital Sign Days of Exercise per Week: 7 days Minutes of Exercise per Session: 10 min Stress: Stress Concern Present (01/23/2024) Received from [facility] [place] [facility] [employer] [facility] - Occupational Stress Questionnaire Feeling of Stress : Rather much Social Connections: Socially Integrated (01/23/2024) Received from [facility] Social Connection and Isolation Panel [NHANES] Frequency of Communication with Friends and Family: More than three times a week Frequency of Social Gatherings with Friends and Family: Twice a week Attends Orthodox Services: More than 4 times per year [...] anomaly not found LOC (loss of consciousness) ([facility]) Migraine with aura and without status migrainosus, not intractable Bilateral occipital neuralgia Asthma without status asthmaticus Anxiety Depressive disorder Seizure-like activity ([facility]) Simple partial seizure disorder ([facility]) Psychogenic nonepileptic seizure Acute cough S/P bilateral [...] *This note was completed using a voice cargo broker system. Every effort was made to ensure accuracy. However, inadvertent computerized cargo broker errors may be present. .Total time spent [...] Cintron 04/16/24 1237 documented in this encounter [facility] 04-10-2024 Progress note Formatting of t his note might be different from the original. DISCHARGE PLANNING NOTE Patient's RN reported that patient would like a rolling walker at discharge, Referral placed on [employer] with script and face to face documentation attached with a request of delivery to patient's room today for discharge. [employer] Policy will follow for discharge transition - DESIREE QURESHI RN 04/10/24 3:05 PM [facility] 04-10-2024 Miscellaneous Notes DISCHARGE PLANNING NOTE Patient's RN reported that patient would like a rolling walker at discharge, Referral placed on [employer] with script and face to face documentation attached with a request of delivery to patient's room today for discharge. [employer] Policy will follow for discharge transition - DESIREE QURESHI RN 04/10/24 3:05 PM DISCHARGE PLANNING NOTE Referral sent to multiple facilities or agencies due to patient insurance type/difficult placement/patient is without preference. DISCHARGE PLANNING NOTE Per RN during discharge transition rounds, barriers to discharge are: No barriers. [place] referral sent for [facility]. Patient states that she is not comfortable doing her own wound care. Has family that assist 4-5 times per week with wound care. Discharge Plan: Plan is home with HCC if able to find company to agree to care. Will arrange outpatient wound care if unable to find accepting HCC. [facility] [employer] Policy will continue to follow for any discharge needs. - Nicky Buchanan RN 04/10/24 10:38 AM Problem: Pain Goal: Patient goal is pain score less than 4, able to rest, and participant in treatment plan as appropriate Description: INTERVENTIONS: 1. Encourage patient or legal graphic art sales representative to report early pain and [...] per policy 9. Teach patient or legal graphic art sales representative interventions for comforting Outcome: Progressing [...] at the bedside 7. Instruct patient/ patient graphic art sales representative about use of safety devices 8. Include patient/ patient graphic art sales representative in decisions related to safety [...] hygiene technique. 7. Identify and instruct patient/patient graphic art sales representative in use of appropriate isolation precautions for identified infection/symptoms. 8. Provide and discuss with patient/patient graphic art sales representative on educational MDRO sheet. 9. Encourage and monitor nutritional status daily and consult conduit installer if indicated. 10. Implement neutropenic guidelines as needed. Outcome: Progressing Note: Evaluation of progress towards goal: Patient afebrile, vital signs stable at this time. Continuing to monitor. Problem: Knowledge Deficit Goal: Patient/patient graphic art sales representative demonstrates understanding of disease process, [...] Score of =/> 25 or indicated by [facility] Assessment Goal: Patient should be free from fall Description: Interventions: 1. [place] to environment 2. Hourly rounds addressing the [...] non-skid footwear 11. Teach patient and patient graphic art sales representative to maintain environment for safety [...] (cane, walker) within reach 19. Request patient graphic art sales representative bring adaptive equipment/mobility aids from home or obtain and provide as needed 20. Consult pharmacy regarding effects of med's affecting mobility, cognition, and alternatives 21. Obtain physician order for PT if risk factors associated with mobility are present 22. Obtain physician order for OT as appropriate 23. Utilize diversional activities 24. Educate patient and patient graphic art sales representative how to maintain a safe environment during visitation times (notify nurse prior to leaving bedside) 25. Consider appropriateness of medical or non-medical donation professional 26. Set up voiding schedule as appropriate [...] be free from fall Description: Interventions: 1. [place] to environment 2. Hourly rounds addressing the [...] non-skid footwear 11. Teach patient and patient graphic art sales representative to maintain environment for safety [...] Description: INTERVENTIONS: 1. Encourage patient or legal graphic art sales representative to report early pain and [...] per policy 9. Teach patient or legal graphic art sales representative interventions for comforting Outcome: Progressing [...] at the bedside 7. Instruct patient/ patient graphic art sales representative about use of safety devices 8. Include patient/ patient graphic art sales representative in decisions related to safety [...] hygiene technique. 7. Identify and instruct patient/patient graphic art sales representative in use of appropriate isolation precautions for identified infection/symptoms. 8. Provide and discuss with patient/patient graphic art sales representative on educational MDRO sheet. 9. Encourage and monitor nutritional status daily and consult conduit installer if indicated. 10. Implement neutropenic guidelines as needed. Outcome: Progressing Note: Evaluation of progress towards goal: Standard precautions and hand hygiene used to prevent infection Problem: Knowledge Deficit Goal: Patient/patient graphic art sales representative demonstrates understanding of disease process, [...] Collaborate with ancillary departments 14. Include patient/patient graphic art sales representative in decisions related to anxiety [...] Score of =/> 25 or indicated by [facility] Assessment Goal: Patient should be free from fall Description: Interventions: 1. Flushing to environment 2. Hourly rounds addressing the [...] non-skid footwear 11. Teach patient and patient graphic art sales representative to maintain environment for safety [...] (cane, walker) within reach 19. Request patient graphic art sales representative bring adaptive equipment/mobility aids from home or obtain and provide as needed 20. Consult pharmacy regarding effects of med's affecting mobility, cognition, and alternatives 21. Obtain physician order for PT if risk factors associated with mobility are present 22. Obtain physician order for OT as appropriate 23. Utilize diversional activities 24. Educate patient and patient graphic art sales representative how to maintain a safe environment during visitation times (notify nurse prior to leaving bedside) 25. Consider appropriateness of medical or non-medical donation professional 26. Set up voiding schedule as appropriate [...] care 6. Collaborate with pastoral/spiritual care, social staff worker, mental health counselor as needed. 7. Instruct patient on diversional activities such as physical activity, distraction, and deep breathing exercises to assist with coping 8. Involve patient's graphic art sales representative in care Outcome: Completed Note: Evaluation of progress towards goal: completed DISCHARGE PLANNING NOTE Update: [facility] unable to accept. Referrals for [facility] per patient choice sent. Waiting on reply. - Nicky Buchanan RN 04/09/24 2:59 PM DISCHARGE PLANNING NOTE Senior Market Research Analyst met with patient, introduced self, and explained role. Patient educated on safe discharge plan. Pt admitted 04/08/2024 with Abdominal wall cellulitis [L03.311] Sepsis ([facility]) [A41.9] Postoperative surgical complication involving genitourinary system [...] 03/25/2024 Prolonged emergence from general anesthesia Seizure ([facility]) Last one 03-11-2024 Prior to admission patient was living with family and self care. Medical equipment patient used prior to admission includes: None. Patient denies need for transportation/ food/ prescription medication assistance resources. Patient lives with minor children and boyfriend. Has support from mother. Referral sent to [facility] per patient choice- her daughter has used them before. PCP: CORINE GOLD MD Pharmacy:[facility] in [place] PCP and pharmacy confirmed with patient. CN [...] Description: INTERVENTIONS: 1. Encourage patient or legal graphic art sales representative to report early pain and [...] per policy 9. Teach patient or legal graphic art sales representative interventions for comforting Outcome: Progressing [...] at the bedside 7. Instruct patient/ patient graphic art sales representative about use of safety devices 8. Include patient/ patient graphic art sales representative in decisions related to safety [...] hygiene technique. 7. Identify and instruct patient/patient graphic art sales representative in use of appropriate isolation precautions for identified infection/symptoms. 8. Provide and discuss with patient/patient graphic art sales representative on educational MDRO sheet. 9. Encourage and monitor nutritional status daily and consult conduit installer if indicated. 10. Implement neutropenic guidelines as needed. Outcome: Progressing Note: Evaluation of progress towards goal: on iv atb. Cont to trend labs.fevers Problem: Knowledge Deficit Goal: Patient/patient graphic art sales representative demonstrates understanding of disease process, [...] Collaborate with ancillary departments 14. Include patient/patient graphic art sales representative in decisions related to anxiety [...] care 6. Collaborate with pastoral/spiritual care, social staff worker, mental health counselor as needed. 7. Instruct patient on diversional activities such as physical activity, distraction, and deep breathing exercises to assist with coping 8. Involve patient's graphic art sales representative in care Outcome: Progressing Note: Evaluation of progress towards goal: able to voice concerns. Problem: Moderate - High Risk Fall Score Description: Nath Fall Score of =/> 25 or indicated by [facility] Assessment Goal: Patient should be free from fall Description: Interventions: 1. Flushing to environment 2. Hourly rounds addressing the [...] non-skid footwear 11. Teach patient and patient graphic art sales representative to maintain environment for safety [...] (cane, walker) within reach 19. Request patient graphic art sales representative bring adaptive equipment/mobility aids from home or obtain and provide as needed 20. Consult pharmacy regarding effects of med's affecting mobility, cognition, and alternatives 21. Obtain physician order for PT if risk factors associated with mobility are present 22. Obtain physician order for OT as appropriate 23. Utilize diversional activities 24. Educate patient and patient graphic art sales representative how to maintain a safe environment during visitation times (notify nurse prior to leaving bedside) 25. Consider appropriateness of medical or non-medical donation professional 26. Set up voiding schedule as appropriate [...] Description: INTERVENTIONS: 1. Encourage patient or legal graphic art sales representative to report early pain and [...] per policy 9. Teach patient or legal graphic art sales representative interventions for comforting Note: Evaluation [...] at the bedside 7. Instruct patient/ patient graphic art sales representative about use of safety devices 8. Include patient/ patient graphic art sales representative in decisions related to safety [...] hygiene technique. 7. Identify and instruct patient/patient graphic art sales representative in use of appropriate isolation precautions for identified infection/symptoms. 8. Provide and discuss with patient/patient graphic art sales representative on educational MDRO sheet. 9. Encourage and monitor nutritional status daily and consult conduit installer if indicated. 10. Implement neutropenic guidelines as needed. Note: Evaluation of progress towards goal: Wound culture pending. Iv zosyn, vanco, and flagyl administered 04/08. Problem: Knowledge Deficit Goal: Patient/patient graphic art sales representative demonstrates understanding of disease process, [...] Collaborate with ancillary departments 14. Include patient/patient graphic art sales representative in decisions related to anxiety [...] care 6. Collaborate with pastoral/spiritual care, social staff worker, mental health counselor as needed. 7. Instruct patient on diversional activities such as physical activity, distraction, and deep breathing exercises to assist with coping 8. Involve patient's graphic art sales representative in care Note: Evaluation of progress towards goal: Emotional support provided by RN and pts SO. documented in this encounter [facility] 04-10-2024 History of Present illness Narrative The [...] Anticipate DC later tara Pagan, MS3 [facility] Resident Attestation I have seen and evaluated the patient, and have also reviewed the documentation above. I have repeated and performed the chong portions of the physical exam and concur with the student's findings. I agree with the plan as noted above with any changes made as necessary. George Pisano MD [employer] Resident PGY-1 04/10/24 7:50 AM If questions [...] Date/Time Wound culture superficial includes gram stain [[id number]] Collected: 04/08/242024 Specimen: Wound Swab Updated: 04/08/24 2331 Gram Stain Result >25 WHITE BLOOD CELLS/LPF 0 SQUAMOUS EPITHELIAL CELLS/LPF FEW GRAM POSITIVE COCCI Culture PENDING Urine culture [[id number]] Collected: 04/08/24 1616 Specimen: Urine Updated: 04/08/24 1723 Blood culture [[id number]] Collected: 04/08/24 1411 Specimen: Blood Updated: 04/09/24 0229 Culture NO GROWTH <24 HRS SARS/FLU A+B/RSV by NAAT/Molecular (M4RT Collection Tube) [[id number]] Collected: 04/08/24 1403 Specimen: Nasopharynx Updated: 04/08/24 1506 FLU A PCR Negative FLU B PCR Negative RSV by PCR Negative SARS CoV 2 BY PCR Not Detected Blood culture [[id number]] Collected: 04/08/24 1343 Specimen: Blood Updated: 04/09/24 [...] Thank you for consulting. Nicholas Osuna, PharmD, BCPS [id number] Images from the original note were not [...] per primary. Sherri Miranda, MS3 [facility] 04/09/24 7:25 AM Jaziel Crump MD PGY-3 Surgery Resident 04/09/24 7:25 AM Cosigned by Benjamin Francis MD at 04/09/2024 10:19 PM EST Associated attestation - Benjamin Francis MD - 04/09/2024 10:19 PM EST documented in this encounter [facility] 04-10-2024 Progress note Formatting of t his note might be different from the original. DISCHARGE PLANNING NOTE Referral sent to multiple facilities or agencies due to patient insurance type/difficult placement/patient is without preference. [facility] 04-10-2024 Progress note Formatting of t his note might be different from the original. DISCHARGE PLANNING NOTE Per RN during discharge transition rounds, barriers to discharge are: No barriers. [place] referral sent for [facility]. Patient states that she is not comfortable doing her own wound care. Has family that assist 4-5 times per week with wound care. Discharge Plan: Plan is home with [facility] if able to find company to agree to care. Will arrange outpatient wound care if unable to find accepting [facility]. Research Associate Policy will continue to follow for any discharge needs. - Nicky Buchanan RN 04/10/24 10:38 AM [facility] 04-10-2024 Plan of care note Problem: Pain Goal: Patient goal is pain score less than 4, able to rest, and participant in treatment plan as appropriate Description: INTERVENTIONS: 1. Encourage patient or legal graphic art sales representative to report early pain and [...] per policy 9. Teach patient or legal graphic art sales representative interventions for comforting Outcome: Progressing [...] at the bedside 7. Instruct patient/ patient graphic art sales representative about use of safety devices 8. Include patient/ patient graphic art sales representative in decisions related to safety [...] hygiene technique. 7. Identify and instruct patient/patient graphic art sales representative in use of appropriate isolation precautions for identified infection/symptoms. 8. Provide and discuss with patient/patient graphic art sales representative on educational MDRO sheet. 9. Encourage and monitor nutritional status daily and consult conduit installer if indicated. 10. Implement neutropenic guidelines as needed. Outcome: Progressing Note: Evaluation of progress towards goal: Patient afebrile, vital signs stable at this time. Continuing to monitor. Problem: Knowledge Deficit Goal: Patient/patient graphic art sales representative demonstrates understanding of disease process, [...] Score of =/> 25 or indicated by [facility] Assessment Goal: Patient should be free from fall Description: Interventions: 1. Flushing to environment 2. Hourly rounds addressing the [...] non-skid footwear 11. Teach patient and patient graphic art sales representative to maintain environment for safety [...] (cane, walker) within reach 19. Request patient graphic art sales representative bring adaptive equipment/mobility aids from home or obtain and provide as needed 20. Consult pharmacy regarding effects of med's affecting mobility, cognition, and alternatives 21. Obtain physician order for PT if risk factors associated with mobility are present 22. Obtain physician order for OT as appropriate 23. Utilize diversional activities 24. Educate patient and patient graphic art sales representative how to maintain a safe environment during visitation times (notify nurse prior to leaving bedside) 25. Consider appropriateness of medical or non-medical donation professional 26. Set up voiding schedule as appropriate [...] be free from fall Description: Interventions: 1. Flushing to environment 2. Hourly rounds addressing the [...] non-skid footwear 11. Teach patient and patient graphic art sales representative to maintain environment for safety and engage in all aspects of fall prevention program Outcome: Progressing Note: Evaluation of progress towards goal: Patient remains free from falls at this time. Interventions in place to help prevent falls. Continuing to monitor. [facility] 04-10-2024 Hospital course Narrative Inpatient Discharge Summary BRIEF OVERVIEW Admitting Provider: Primary Care Physician at Discharge: Admission Date: 04/08/2024 Discharge Date: 04/10/24 Procedures: Bedside I&D for abdominal abscess HPI: April Nicholson is a 28 y.o. female who presented to [facility] ED on 04/08/2024 with hx of abdominal pain and fever. 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 The patient stated that she completed a 7-day course of clindamycin post-operatively. One day prior to presentation to the ED, the patient had been evaluated at [facility] and was given 1 dose of bactrim [...] 12:15-13:45 04/09, then 21:33-23:03 04/09, 04:40-06:10 04/10, Mn'ed on 04/10 Diazepam 5 mg given at [...] 200 mg given BID during inpatient stay [place] carbonate 600 mg PO given qd during inpatient stay Lorazepam 1 mg injection given at 20:11 04/08 IV Morphine 4 mg injection given 14:04/08 Zofran 4 mg IV given 14:16 04/08 0.9% NaCl 2,000 mL fluid bolus given 14:15 04/08 Trazadone 300 mg given 01:17and 21:37 2/18 Oxycodone 5 mg PO given 2x 04/08, [...] Zaki Gupta 04/10/24 3rd Year Medical Student, [facility] Resident Attestation I have seen and evaluated the patient, and have also reviewed the documentation above. I have repeated and performed the chong portions of the physical exam and concur with the student's findings. I agree with the plan as noted above with any changes made as necessary. George Pisano MD Chip Washer Resident PGY-1 04/10/24 9:39 AM Cosigned by [...] unless otherwise specified. documented in this encounter [facility] 04-09-2024 Plan of care note Problem: Pain Goal: Patient goal is pain score less than 4, able to rest, and participant in treatment plan as appropriate Description: INTERVENTIONS: 1. Encourage patient or legal graphic art sales representative to report early pain and [...] per policy 9. Teach patient or legal graphic art sales representative interventions for comforting Outcome: Progressing [...] at the bedside 7. Instruct patient/ patient graphic art sales representative about use of safety devices 8. Include patient/ patient graphic art sales representative in decisions related to safety [...] hygiene technique. 7. Identify and instruct patient/patient graphic art sales representative in use of appropriate isolation precautions for identified infection/symptoms. 8. Provide and discuss with patient/patient graphic art sales representative on educational MDRO sheet. 9. Encourage and monitor nutritional status daily and consult conduit installer if indicated. 10. Implement neutropenic guidelines as needed. Outcome: Progressing Note: Evaluation of progress towards goal: Standard precautions and hand hygiene used to prevent infection Problem: Knowledge Deficit Goal: Patient/patient graphic art sales representative demonstrates understanding of disease process, [...] Collaborate with ancillary departments 14. Include patient/patient graphic art sales representative in decisions related to anxiety [...] be free from fall Description: Interventions: 1. Flushing to environment 2. Hourly rounds addressing the [...] non-skid footwear 11. Teach patient and patient graphic art sales representative to maintain environment for safety [...] (cane, walker) within reach 19. Request patient graphic art sales representative bring adaptive equipment/mobility aids from home or obtain and provide as needed 20. Consult pharmacy regarding effects of med's affecting mobility, cognition, and alternatives 21. Obtain physician order for PT if risk factors associated with mobility are present 22. Obtain physician order for OT as appropriate 23. Utilize diversional activities 24. Educate patient and patient graphic art sales representative how to maintain a safe environment during visitation times (notify nurse prior to leaving bedside) 25. Consider appropriateness of medical or non-medical donation professional 26. Set up voiding schedule as appropriate [...] care 6. Collaborate with pastoral/spiritual care, social staff worker, mental health counselor as needed. 7. Instruct patient on diversional activities such as physical activity, distraction, and deep breathing exercises to assist with coping 8. Involve patient's graphic art sales representative in care Outcome: Completed Note: Evaluation of progress towards goal: completed [facility] 04-09-2024 Progress note Formatting of t his note might be different from the original. DISCHARGE PLANNING NOTE Update: [facility] unable to accept. Referrals for [facility] per patient choice sent. Waiting on reply. - Nicky Buchanan RN 04/09/24 2:59 PM [facility] 04-09-2024 Progress note Formatting of t his note is different from the original. DISCHARGE PLANNING NOTE Senior Market Research Analyst met with patient, introduced self, and explained role. Patient educated on safe discharge plan. Pt admitted 04/08/2024 with Abdominal wall cellulitis [L03.311] Sepsis ([facility] [A41.9] Postoperative surgical complication involving genitourinary system [...] 03/25/2024 Prolonged emergence from general anesthesia Seizure ([facility]) Last one 03-11-2024 Prior to admission patient was living with family and self care. Medical equipment patient used prior to admission includes: None. Patient denies need for transportation/ food/ prescription medication assistance resources. Patient lives with minor children and boyfriend. Has support from mother. Referral sent to [facility] per patient choice- her daughter has used them before. PCP: CORINE GOLD MD Pharmacy:[facility] in [place] PCP and pharmacy confirmed with patient. CN offered to assist with follow up appointment arrangements; patient declines - states will self-schedule follow up appointments. CORINE GOLD MD added to Follow Up Providers for Summary of Care communication. Per patient self-report: Drug use: no Smoking: no ETOH Use: no Current discharge plan is: Home with [facility] for wound care Services Requested: Services Requested [...] - Nicky Buchanan RN 04/09/24 10:46 AM [facility] 04-09-2024 Consult note Formatting of th is [...] injury to the rectum who presents to [facility] ED due to abdominal pain that [...] day course of clindamycin. She went to [place] ED yesterday and was given 1 dose [...] 03/25/2024 Prolonged emergence from general anesthesia Seizure ([facility]) Last one 03-11-2024 Past Surgical History: Past Surgical History: Procedure Laterality Date APPENDECTOMY SECTION CHOLECYSTECTOMY [facility] LYSIS OF ADHESIONS N/A 03/28/2024 Performed by Mundo Martinez MD at [facility] LYSIS OF ADHESIONS N/A 03/28/2024 Performed by Jesse Sultana MD at [facility]5 [place] OOPHORECTOMY/FROZEN SECTION Bilateral 03/28/2024 Performed by Mundo Martinez MD at [facility] DILATION AND CURETTAGE OF UTERUS PARTIAL HYSTERECTOMY [...] Physical Activity: Insufficiently Active (01/23/2024) Received from [facility] Exercise Vital Sign Days of Exercise per Week: 7 days Minutes of Exercise per Session: 10 min Stress: Stress Concern Present (01/23/2024) Received from [facility] [place] [facility] - Occupational Stress Questionnaire Feeling of Stress : Rather much Social Connections: Socially Integrated (01/23/2024) Received from [facility] Social Connection and Isolation Panel [NHANES] Frequency of Communication with Friends and Family: More than three times a week Frequency of Social Gatherings with Friends and Family: Twice a week Attends Orthodox Services: More than 4 times per year [...] If questions or concerns, please contact via [email or web address] pager at [phone]. Resident Attestation I have seen and evaluated the patient, and have also reviewed the documentation above. I have repeated and performed the chong portions of the physical exam and concur with the student's findings. I agree with the plan as noted above with any changes made as necessary. George Pisano MD Chip Washer Resident PGY-1 04/09/24 7:52 AM Cosigned by [...] Will initiate transdermal estrogen for vasomotor symptoms. [facility] 04-09-2024 Plan of care note Problem: Pain Goal: Patient goal is pain score less than 4, able to rest, and participant in treatment plan as appropriate Description: INTERVENTIONS: 1. Encourage patient or legal graphic art sales representative to report early pain and [...] per policy 9. Teach patient or legal graphic art sales representative interventions for comforting Outcome: Progressing [...] at the bedside 7. Instruct patient/ patient graphic art sales representative about use of safety devices 8. Include patient/ patient graphic art sales representative in decisions related to safety [...] hygiene technique. 7. Identify and instruct patient/patient graphic art sales representative in use of appropriate isolation precautions for identified infection/symptoms. 8. Provide and discuss with patient/patient graphic art sales representative on educational MDRO sheet. 9. Encourage and monitor nutritional status daily and consult conduit installer if indicated. 10. Implement neutropenic guidelines as needed. Outcome: Progressing Note: Evaluation of progress towards goal: on iv atb. Cont to trend labs.fevers Problem: Knowledge Deficit Goal: Patient/patient graphic art sales representative demonstrates understanding of disease process, [...] Collaborate with ancillary departments 14. Include patient/patient graphic art sales representative in decisions related to anxiety [...] care 6. Collaborate with pastoral/spiritual care, social staff worker, mental health counselor as needed. 7. Instruct patient on diversional activities such as physical activity, distraction, and deep breathing exercises to assist with coping 8. Involve patient's graphic art sales representative in care Outcome: Progressing Note: Evaluation of progress towards goal: able to voice concerns. Problem: Moderate - High Risk Fall Score Description: Nath Fall Score of =/> 25 or indicated by [facility] Assessment Goal: Patient should be free from fall Description: Interventions: 1. Flushing to environment 2. Hourly rounds addressing the [...] non-skid footwear 11. Teach patient and patient graphic art sales representative to maintain environment for safety [...] (cane, walker) within reach 19. Request patient graphic art sales representative bring adaptive equipment/mobility aids from home or obtain and provide as needed 20. Consult pharmacy regarding effects of med's affecting mobility, cognition, and alternatives 21. Obtain physician order for PT if risk factors associated with mobility are present 22. Obtain physician order for OT as appropriate 23. Utilize diversional activities 24. Educate patient and patient graphic art sales representative how to maintain a safe environment during visitation times (notify nurse prior to leaving bedside) 25. Consider appropriateness of medical or non-medical donation professional 26. Set up voiding schedule as appropriate (every 2 hours) Outcome: Progressing Note: Evaluation of progress towards goal: free from falls, cont to use nonskid footwear with ambulation. Pt instructed to call out when appropriate to aid with ambulation [facility] 04-09-2024 Consult note Formatting of th is [...] injury to the rectum who presents to [facility] ED due to abdominal pain that [...] day course of clindamycin. She went to [place] ED yesterday and was given 1 dose [...] 03/25/2024 Prolonged emergence from general anesthesia Seizure ([facility]) Last one 03-11-2024 Past Surgical History: Past Surgical History: Procedure Laterality Date APPENDECTOMY SECTION CHOLECYSTECTOMY [facility] LYSIS OF ADHESIONS N/A 03/28/2024 Performed by Mundo Martinez MD at [facility] LYSIS OF ADHESIONS N/A 03/28/2024 Performed by Jesse Sultana MD at [facility] [place] OOPHORECTOMY/FROZEN SECTION Bilateral 03/28/2024 Performed by Mundo Martinez MD at [facility] DILATION AND CURETTAGE OF UTERUS PARTIAL HYSTERECTOMY [...] BID, Katina Block DO, 5 mg at 04/08/248 HYDROmorphone (DILAUDID) injection 1 mg, 1 mg, [...] Physical Activity: Insufficiently Active (01/23/2024) Received from [facility] Exercise Vital Sign Days of Exercise per Week: 7 days Minutes of Exercise per Session: 10 min Stress: Stress Concern Present (01/23/2024) Received from [facility] [place] [facility] - Occupational Stress Questionnaire Feeling of Stress : Rather much Social Connections: Socially Integrated (01/23/2024) Received from [facility] Social Connection and Isolation Panel [NHANES] Frequency of Communication with Friends and Family: More than three times a week Frequency of Social Gatherings with Friends and Family: Twice a week Attends Orthodox Services: More than 4 times per year [...] If questions or concerns, please contact via [facility] pager at [phone]. Resident Attestation I have seen and evaluated the patient, and have also reviewed the documentation above. I have repeated and performed the chong portions of the physical exam and concur with the student's findings. I agree with the plan as noted above with any changes made as necessary. George Pisano MD Chip Washer Resident PGY-1 04/09/24 7:52 AM Cosigned by [...] History: Procedure Laterality Date APPENDECTOMY SECTION CHOLECYSTECTOMY [facility] LYSIS OF ADHESIONS N/A 03/28/2024 Performed by Mundo Martinez MD at [facility] LYSIS OF ADHESIONS N/A 03/28/2024 Performed by Jesse Sultana MD at [facility] SAL[place] OOPHORECTOMY/FROZEN SECTION Bilateral 03/28/2024 Performed by Mundo Martinez MD at [facility] DILATION AND CURETTAGE OF UTERUS PARTIAL HYSTERECTOMY [...] to allergen)., Disp: 2 each, Rfl: 1 [id number] (TRELEGY ELLIPTA) 200-62.5-25 mcg blister with device, [...] Resource Strain: Low Risk (01/23/2024) Received from [facility] Overall Financial Resource Strain (CARDIA) Difficulty of Paying Living Expenses: Not very hard Food Insecurity: No Food Insecurity (02/09/2024) Hunger Screening Food Insecurity - Worry: Never True Food Insecurity - Inability: Never True Transportation Needs: Unknown (01/23/2024) Received from [facility] PRAPARE - Transportation Lack of Transportation (Medical): Patient declined Lack of Transportation (Non-Medical): No Physical Activity: Insufficiently Active (01/23/2024) Received from [facility] Exercise Vital Sign Days of Exercise per Week: 7 days Minutes of Exercise per Session: 10 min Stress: Stress Concern Present (01/23/2024) Received from [facility] [place] [facility] - Occupational Stress Questionnaire Feeling of Stress : Rather much Social Connections: Socially Integrated (01/23/2024) Received from [facility] Social Connection and Isolation Panel [NHANES] Frequency of Communication with Friends and Family: More than three times a week Frequency of Social Gatherings with Friends and Family: Twice a week Attends Orthodox Services: More than 4 times per year Active Member of Clubs or Organizations: Yes Attends Club or Organization Meetings: More than 4 times per year Marital Status: Living with partner Interpersonal Safety: Not on file Housing Instability: Low Risk (01/23/2024) Received from [facility] Housing Stability Vital Sign Unable to [...] General Surgery B 6a - 6p Pager: [phone] 6p - 6a Pager: [phone] Cosigned by Benjamin Francis MD at 04/09/2024 9:48 AM EST Associated attestation - Benjamin Francis MD - 04/09/2024 9:48 AM EST Attending attestation: I reviewed the resident's note and discussed the case with the resident. Additional findings/notes: Local wound care. Will sign-off. Benjamin Francis MD, [facility] General Surgery and Minimally Invasive Surgery [address] [place] [address], [address] [place] [address] Office: documented in this encounter [facility] 04-09-2024 Plan of care note Problem: Pain Goal: Patient goal is pain score less than 4, able to rest, and participant in treatment plan as appropriate Description: INTERVENTIONS: 1. Encourage patient or legal graphic art sales representative to report early pain and [...] per policy 9. Teach patient or legal graphic art sales representative interventions for comforting Note: Evaluation [...] at the bedside 7. Instruct patient/ patient graphic art sales representative about use of safety devices 8. Include patient/ patient graphic art sales representative in decisions related to safety [...] hygiene technique. 7. Identify and instruct patient/patient graphic art sales representative in use of appropriate isolation precautions for identified infection/symptoms. 8. Provide and discuss with patient/patient graphic art sales representative on educational MDRO sheet. 9. Encourage and monitor nutritional status daily and consult conduit installer if indicated. 10. Implement neutropenic guidelines as needed. Note: Evaluation of progress towards goal: Wound culture pending. Iv zosyn, vanco, and flagyl administered 04/08. Problem: Knowledge Deficit Goal: Patient/patient graphic art sales representative demonstrates understanding of disease process, [...] Collaborate with ancillary departments 14. Include patient/patient graphic art sales representative in decisions related to anxiety [...] care 6. Collaborate with pastoral/spiritual care, social staff worker, mental health counselor as needed. 7. Instruct patient on diversional activities such as physical activity, distraction, and deep breathing exercises to assist with coping 8. Involve patient's graphic art sales representative in care Note: Evaluation of progress towards goal: Emotional support provided by RN and pts SO. [facility] 04-08-2024 Procedure note PROCEDURE NOTE INCISION AND [...] I reviewed the resident's note. Additional Notes/Findings: [facility] 04-08-2024 Procedure note PROCEDURE NOTE [...] note. Additional Notes/Findings: documented in this encounter [facility] 04-08-2024 Consult note Formatting of th is [...] 03/25/2024 Prolonged emergence from general anesthesia Seizure ([facility]) Last one 03-11-2024 Past Surgical History: Procedure Laterality Date APPENDECTOMY SECTION CHOLECYSTECTOMY [facility] LYSIS OF ADHESIONS N/A 03/28/2024 Performed by Mundo Martinez MD at [facility] LYSIS OF ADHESIONS N/A 03/28/2024 Performed by Jesse Sultana MD at [facility] [place] OOPHORECTOMY/FROZEN SECTION Bilateral 03/28/2024 Performed by Mundo Martinez MD at [facility] DILATION AND CURETTAGE OF UTERUS PARTIAL HYSTERECTOMY [...] to allergen)., Disp: 2 each, Rfl: 1 [id number] (TRELEGY ELLIPTA) 200-62.5-25 mcg blister with device, [...] Resource Strain: Low Risk (01/23/2024) Received from [facility] Overall Financial Resource Strain (CARDIA) Difficulty of Paying Living Expenses: Not very hard Food Insecurity: No Food Insecurity (02/09/2024) Hunger Screening Food Insecurity - Worry: Never True Food Insecurity - Inability: Never True Transportation Needs: Unknown (01/23/2024) Received from [facility] PRAP[facility] - Transportation Lack of Transportation (Medical): Patient declined Lack of Transportation (Non-Medical): No Physical Activity: Insufficiently Active (01/23/2024) Received from [facility] Exercise Vital Sign Days of Exercise per Week: 7 days Minutes of Exercise per Session: 10 min Stress: Stress Concern Present (01/23/2024) Received from [facility] [place] [employer] - Occupational Stress Questionnaire Feeling of Stress : Rather much Social Connections: Socially Integrated (01/23/2024) Received from [facility] Social Connection and Isolation Panel [NHANES] Frequency of Communication with Friends and Family: More than three times a week Frequency of Social Gatherings with Friends and Family: Twice a week Attends Orthodox Services: More than 4 times per year Active Member of Clubs or Organizations: Yes Attends Club or Organization Meetings: More than 4 times per year Marital Status: Living with partner Interpersonal Safety: Not on file Housing Instability: Low Risk (01/23/2024) Received from [facility] Housing Stability Vital Sign Unable to [...] General Surgery B 6a - 6p Pager: [phone] 6p - 6a Pager: [phone] Cosigned by Benjamin Francis MD at 04/09/2024 9:48 AM EST Associated attestation - Benjamin Francis MD - 04/09/2024 9:48 AM EST Attending attestation: I reviewed the resident's note and discussed the case with the resident. Additional findings/notes: Local wound care. Will sign-off. Benjamin Francis MD, [facility] General Surgery and Minimally Invasive Surgery [address] [place] [address], [address] [place] [address] Office: [facility] Work Phone: 04-08-2024 Physician Emergency department Note Images from the original note were not included. [facility] - EMERGENCY DEPARTMENT Pt Name: April Nicholson [...] states that she was recently evaluated at [facility] yesterday and was given Keflex and recommended [...] History: Procedure Laterality Date APPENDECTOMY SECTION CHOLECYSTECTOMY [facility] DV5 LYSIS OF ADHESIONS N/A 03/28/2024 Performed by Mundo Martinez MD at [facility] DV5 LYSIS OF ADHESIONS N/A 03/28/2024 Performed by Jesse Sultana MD at [facility] DV5 SALPINGO OOPHORECTOMY/FROZEN SECTION Bilateral 03/28/2024 Performed by Mundo Martinez MD at [facility] DILATION AND CURETTAGE OF UTERUS PARTIAL HYSTERECTOMY [...] Physical Activity: Insufficiently Active (01/23/2024) Received from [facility] Exercise Vital Sign Days of Exercise per Week: 7 days Minutes of Exercise per Session: 10 min Stress: Stress Concern Present (01/23/2024) Received from [facility] [place] [employer] - Occupational Stress Questionnaire Feeling of Stress : Rather much Social Connections: Socially Integrated (01/23/2024) Received from [facility] Social Connection and Isolation Panel [NHANES] Frequency of Communication with Friends and Family: More than three times a week Frequency of Social Gatherings with Friends and Family: Twice a week Attends Orthodox Services: More than 4 times per year [...] nursing note reviewed. Exam conducted with a pencil sorter present. Constitutional: General: She is in acute [...] radiology injection (80 mL intravenous Given 04/08/24 152) iohexoL (OMNIPAQUE) 300 mg iodine/mL 100 mL (100 mL intravenous Given 04/08/24 152) vancomycin (VANCOCIN) IVPB 2000 mg/500 mL in 0.9% sodium chloride (premix) (0 mg intravenous Stop Bag 04/08/242129) piperacillin-tazobactam (ZOSYN) 4.5 g in sodium chloride 0.9 % 50 mL IVPB-MBP (0 g intravenous Stop Bag 04/08/242258) HYDROmorphone (DILAUDID) injection 1 mg (1 mg intravenous Given 04/08/241639) lidocaine-EPINEPHrine (XYLOCAINE W/EPI) 1 %-1:731876 injection 30 mL (20 mL intradermal Given [...] and physical exam, pt requires admission to [facility] for IV antibiotics, pain control, general surgery [...] [JR] 1322 Pain Score: 10 [JR] 1406 [facility] evaluating patient at bedside [JR] 1413 X-ray [...] 12 lead Sinus tachycardia, heart rate 103, NJ interval 134, QRS 75, QTC 427. No [...] notes hat she was recently evaluated at [facility] yesterday and was given Keflex and recommended [...] 4:29 PM Comment Diagnosis: Abdominal wall cellulitis [[id number]] Attending Provider: MILAD HERNANDEZ [[id number]] Estimated length of stay?: >2 midnights/In-patient only [...] Resident Attestation: IDr. Melton personally performed a mwln-pc-[id number] diagnostic evaluation on this patient. I have [...] Resident 04/08/242000 Yordy Melton DO 04/09/24 0734 [facility] Work Phone: 04-08-2024 Emergency department Note Images from the original note were not included. [facility] - EMERGENCY DEPARTMENT Pt Name: April Nicholson [...] states that she was recently evaluated at [facility] yesterday and was given Keflex and recommended [...] 03/25/2024 Prolonged emergence from general anesthesia Seizure ([facility]) Last one 03-11-2024 Past Surgical History: Past Surgical History: Procedure Laterality Date APPENDECTOMY SECTION CHOLECYSTECTOMY [facility] DV[facility] LYSIS OF ADHESIONS N/A 03/28/2024 Performed by Mundo Martinez MD at [facility] DV5 LYSIS OF ADHESIONS N/A 03/28/2024 Performed by Jesse Sultana MD at [facility] DV5 SALPINGO OOPHORECTOMY/FROZEN SECTION Bilateral 03/28/2024 Performed by Mundo Martinez MD at [facility] DILATION AND CURETTAGE OF UTERUS PARTIAL HYSTERECTOMY [...] Physical Activity: Insufficiently Active (01/23/2024) Received from [facility] Exercise Vital Sign Days of Exercise per Week: 7 days Minutes of Exercise per Session: 10 min Stress: Stress Concern Present (01/23/2024) Received from [facility] [place] [employer] - Occupational Stress Questionnaire Feeling of Stress : Rather much Social Connections: Socially Integrated (01/23/2024) Received from [facility] Social Connection and Isolation Panel [NHANES] Frequency of Communication with Friends and Family: More than three times a week Frequency of Social Gatherings with Friends and Family: Twice a week Attends Orthodox Services: More than 4 times per year [...] nursing note reviewed. Exam conducted with a pencil sorter present. Constitutional: General: She is in acute [...] 5 mg (5 mg oral Given 04/08/24 221) lamoTRIgine (LaMICtal) tablet 200 mg (200 mg oral Given 04/08/24 221) lithium carbonate tablet 600 mg (600 mg [...] mL IVPB-MBP (0 g intravenous Stop Bag 2/17/25 2259) HYDROmorphone (DILAUDID) injection 1 mg (1 mg intravenous Given 04/08/241639) lidocaine-EPINEPHrine (XYLOCAINE W/EPI) 1 %-1:706058 injection 30 mL (20 mL intradermal Given [...] and physical exam, pt requires admission to [facility] for IV antibiotics, pain control, general surgery [...] [JR] 1322 Pain Score: 10 [JR] 1406 [facility] Rn/Onc evaluating patient at bedside [JR] 1413 X-ray [...] 12 lead Sinus tachycardia, heart rate 103, NJ interval 134, QRS 75, QTC 427. No [...] [JR] ED Course User Index [JR] Rohan Vealzquez MD Clinical Impressions as of 04/08/241958 Postoperative [...] notes hat she was recently evaluated at [facility] yesterday and was given Keflex and recommended [...] 4:29 PM Comment Diagnosis: Abdominal wall cellulitis [[id number]] Attending Provider: MLIAD HERNANDEZ [[id number]] Estimated length of stay?: >2 midnights/In-patient only [...] Attestation: I, Dr. Melton personally performed a ohzx-rv-tkfq diagnostic evaluation on this patient. I have [...] labs in back. documented in this encounter [facility] 04-08-2024 Emergency department Note Pt tearful in triage, lots of recent blood draws, requesting labs in back. [facility] 04-08-2024 Miscellaneous Notes Patient called reporting persistent fever of 105 F that is not reducing with medication. She has been to the ED in [place] multiple times and has been sent home every time. She also reports pain and green drainage from her surgical incision. Spoke to Svetlana Ye PA-C; she recommends that patient visit [facility] ED and and wants to inform patient that our team and residents will be able to round on her there. Patient is agreeable to plan. documented in this encounter [facility] 04-08-2024 Telephone encounter Note Patient called reporting persistent fever of 105 F that is not reducing with medication. She has been to the ED in [place] multiple times and has been sent home every time. She also reports pain and green drainage from her surgical incision. Spoke to Svetlana eY PA-C; she recommends that patient visit [facility] ED and and wants to inform patient that our team and residents will be able to round on her there. Patient is agreeable to plan. [facility] 04-02-2024 History of Present illness Narrative Eyad Reason for Appointment: Patient [...] without aura without status migrainosus, not intractable ([facility]) 01/24/2023 Generalized anxiety disorder ([facility]) 01/24/2023 Persistent disorder of initiating or maintaining sleep 01/24/2023 Mild persistent asthma ([facility]) 01/24/2023 Polycystic ovaries 01/24/2023 Psychogenic nonepileptic seizure ([facility]) 01/24/2023 Class 3 severe obesity due to excess calories without serious comorbidity with body mass index (BMI) of 50.0 to 59.9 in adult ([facility]) 03/21/2023 Mild persistent asthma with (acute) exacerbation ([facility]) 10/10/2023 Fatigue 01/01/2024 Encounter for long-term (current) [...] Acute exacerbation of asthma with allergic rhinitis ([facility]) Allergies Asthma ([facility]) At low risk for fall Bipolar affective, mixed (HCC) ([facility]) Change in blood pressure Cholecystitis 2008 Depressive disorder ([facility]) OMID (generalized anxiety disorder) ([facility]) History of hysterectomy 10/01/2021 Insomnia, persistent Migraines ([facility]) Mild persistent asthma without complication ([facility]) Morbid obesity with BMI of 40.0-44.9, adult ([facility]) PCOS (polycystic ovarian syndrome) Right otitis media Seizures ([facility]) HISTORY PAST MEDICAL HISTORY SOCIAL HISTORY Past Medical History: Diagnosis Date Acute exacerbation of asthma with allergic rhinitis ([facility]) Allergies Asthma ([facility]) At low risk for fall Bipolar affective, mixed (HCC) ([facility]) Change in blood pressure high and low Cholecystitis 2008 Chronic migraine without aura without status migrainosus, not intractable ([facility]) Depressive disorder ([facility]/HCC) OMID (generalized anxiety disorder) ([facility]) History of hysterectomy 10/01/2021 Insomnia, persistent Migraines ([facility]/H[facility]) Mild persistent asthma without complication (CMS/HCC) Morbid [...] nursing note reviewed. Exam conducted with a pencil sorter present. Vitals: Estimated body mass index is [...] Zay Blas DO documented in this encounter [facility] 04-01-2024 Miscellaneous Notes Images from the original note were not included. Medication Received: Yesterday April Nicholson [facility] Clinical Staff afternoon I m still in [...] see how she was feeling today. Our BUTTON TUFTING MACHINE OPERATOR wanted to make sure that she's not having any nausea, vomiting, fever or chills. The patient didn't answer, so I left her a message. documented in this encounter [facility] 04-01-2024 Telephone encounter Note Images from the original note were not included. Medication Received: [facility] Clinical Staff afternoon I m still in [...] see how she was feeling today. Our BUTTON TUFTING MACHINE OPERATOR wanted to make sure that she's not having any nausea, vomiting, fever or chills. The patient didn't answer, so I left her a message. [facility] 04-01-2024 History of Present illness Narrative Dontrell [...] Cint[place] 04/01/24 1107 documented in this encounter [facility] 04-01-2024 Miscellaneous Notes Patient had surgery on [...] to Svetlana HERNANDEZ. Oxycodone refilled by Junior HERNANDEZ. TC to April to let her know. Reminded her of post op restrictions,, medication safety, and alternating with ibuprofen .She states she does not have Ibuprofen. Message to Svetlana to prescribe. Acknowledged understanding She states her mom is now helping her with her sick child. documented in this encounter [facility] 04-01-2024 Telephone encounter Note Patient had surgery [...] pain meds also. Message to Svetlana HERNANDEZ. [facility] 04-01-2024 Telephone encounter Note Oxycodone refilled by Junior HERNANDEZ. TC to April to let her know. Reminded her of post op restrictions,, medication safety, and alternating with ibuprofen .She states she does not have Ibuprofen. Message to Svetlana to prescribe. Acknowledged understanding She states her mom is now helping her with her sick child. [facility] 03-25-2024 Instructions Mari Saldaña RN - 03/25/2024 2:15 PM EST Your surgery/procedure is scheduled at [facility] on 03-28-2024 at 9am Arrival Time: 7am [facility] Address: [address] [place] [address] in Parking lot located on [facility] Report to the Entrance B. Check in at the information desk the surgery. The waiting room located on the second floor. If you have any questions prior to surgery, please call Pre-Admission Clinic at [phone] between 7:30 am and 4:30 pm Monday through Monday. If you have questions the morning of surgery, please call the Pre-op Department at [phone]. Notify your SURGEON if you develop any [...] piercings ,hair extensions that contain metal, nail ecuadorean, make-up, and contact lens. You may brush [...] RIGHTS AND RESPONSIBILITIES As a patient at [facility], you have the right to: Receive medical care and be informed of who is taking care of you Be treated with dignity and respect Have a family member/graphic art sales representative of choice and your physician notified of your admission Receive information and actively participate in decisions about your care and treatment Refuse care, treatment and services Decide who may provide your support and speak for you Access scientology and spiritual services Participate in ethical issues [...] of hospital charges and payment methods Patient/patient graphic art sales representative responsibilities are to: Provide information [...] in clean clothes. documented in this encounter [facility] 03-21-2024 Miscellaneous Notes ----- Message from Dr. Mundo Martinez MD sent at 03/21/2024 11:39 AM EST ----- Should be ok ----- Message ----- From: iNcky Zapata Sent: 03/21/2024 9:43 AM EST To: Mundo Martinez MD Pt is going up to the [facility] tomorrow and getting migraine infusion Vyepti infusion for migranies, during the infusion pt will get Toradol and benadryl, patient has surgery next week and she wants to make sure this infusion is ok to take and will not delay surgery, please advise. Pt was notified of Dr. Martinez response documented in this encounter [facility] 03-21-2024 Telephone encounter Note ----- Message from Dr. Mundo Martinez MD sent at 03/21/2024 11:39 AM EST ----- Should be ok ----- Message ----- From: Nicky Zapata Sent: 03/21/2024 9:43 AM EST To: Mundo Martinez MD Pt is going up to the [facility] tomorrow and getting migraine infusion Vyepti infusion for migranies, during the infusion pt will get Toradol and benadryl, patient has surgery next week and she wants to make sure this infusion is ok to take and will not delay surgery, please advise. [employer] 03-21-2024 Telephone encounter Note Pt was notified of Dr. Martinez response [employer] 03-21-2024 Note HNO ID: [id number] Author: SAGAR BARTH APRN.BUTTON TUFTING MACHINE OPERATOR Service: ? Author Type: Nurse Practitioner Type: [...] visit. Either the patient or their legal graphic art sales representative has been informed of the [...] XL, Qudexy) Anti-Depressant and Antipsychotic Amitriptyline (Elavil) Haugan (Eskalith, Lithobid) Nortriptyline (Pamelor, Aventyl) Anti-Migraine Dihydroergotamine [...] ZOLMitriptan (ZOMIG) 5 mg nasal sprayUse 1 Helix in the nose as needed at onset [...] by mouth ann (more content not included)... [facility] 03-21-2024 History of Present illness Narrative Images [...] visit. Either the patient or their legal graphic art sales representative has been informed of the [...] XL, Qudexy) Anti-Depressant and Antipsychotic Amitriptyline (Elavil) Haugan (Eskalith, Lithobid) Nortriptyline (Pamelor, Aventyl) Anti-Migraine Dihydroergotamine [...] ZOLMitriptan (ZOMIG) 5 mg nasal spray^Use 1 Helix in the nose as needed at onset [...] these with the patient: yes Sagar Barth APRN.BUTTON TUFTING MACHINE OPERATOR HEADACHE SCORES: 12/05/2023 01/17/2024 03/20/2024 Headache Questions [...] Lymph 1.00 - 4.00 k/uL 0.84 Abs [place] <0.87 k/uL 0.06 Abs Eosin <0.46 k/uL [...] spontaneous and fluent without dysarthria. Short and custodial memory, cognition and general fund of knowledge [...] XL, Qudexy) Anti-Depressant and Antipsychotic Amitriptyline (Elavil) Haugan (Eskalith, Lithobid) Nortriptyline (Pamelor, Aventyl) Blood Pressure [...] 30 minutes Sagar Barth APRN.CNP Headache Section [facility] March 21, 2024 documented in this encounter [facility] 03-20-2024 History of Present illness Narrative [...] previously seen pulmonary with Dr. Jason at [facility]. She has been treated with Trelegy 100 [...] by mouth in the morning. 06/08/22 Yes Alba Grace APRN-FADY cyanocobalamin 1000 MCG tablet Take [...] to allergen). 06/07/22 Yes Derik Arthur APRN-WOOD ruuvxdnjmhv-tdkruwlpa-kzuohwkx (TRELEGY ELLIPTA) 100-62.5-25 mcg blister with device [...] mouth in the morning. 06/07/22 Yes Derik ArthurUMANG-HIDES INSPECTOR omeprazole (PriLOSEC) 20 mg capsule Take 1 capsule (20 mg total) by mouth in the morning. 01/27/22 Yes Alba Grace APRN-BUTTON TUFTING MACHINE OPERATOR ondansetron ODT (ZOFRAN ODT) 4 mg disintegrating [...] fashion, then CT chest is warranted. Dr. Vincent Peña DO. [facility] Office: [phone] documented in this encounter [facility] 03-18-2024 History of Present illness Narrative Subjective: [...] which is why she doesn't go to [place] or [place]. She has had diarrhea for the last [...] lot of steroids. 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 Last hospitalized a couple years ago. Not [...] procedures Referring and communicating with other health animal care assistant (not separately reported) Documenting clinical information in the electronic or other health record Independently interpreting results (not separately reported) and communicating results to the patient/family/caregiver Care coordination (not separately reported) Haugan and lamictal, trazodone as needed MUNDO MARTINEZ MD documented in this encounter [facility] 03-06-2024 History of Present illness Narrative Reason [...] in female 12/19/2022 Mixed bipolar I disorder ([facility]) 01/24/2023 Chronic migraine without aura without status migrainosus, not intractable ([facility]) 01/24/2023 Generalized anxiety disorder ([facility]) 01/24/2023 Persistent disorder of initiating or maintaining sleep 01/24/2023 Mild persistent asthma ([facility]) 01/24/2023 Polycystic ovaries 01/24/2023 Psychogenic nonepileptic seizure ([facility]) 01/24/2023 Class 3 severe obesity due to excess calories without serious comorbidity with body mass index (BMI) of 50.0 to 59.9 in adult ([facility]) 03/21/2023 Mild persistent asthma with (acute) exacerbation ([facility]) 10/10/2023 Fatigue 01/01/2024 Encounter for long-term (current) [...] Acute exacerbation of asthma with allergic rhinitis ([facility]) Allergies Asthma ([facility]) At low risk for fall Bipolar affective, mixed (HCC) ([facility]) Change in blood pressure Cholecystitis 2008 Depressive disorder ([facility]) OMID (generalized anxiety disorder) ([facility]) History of hysterectomy 10/01/2021 Insomnia, persistent Migraines ([facility]) Mild persistent asthma without complication ([facility]) Morbid obesity with BMI of 40.0-44.9, adult ([facility]) PCOS (polycystic ovarian syndrome) Right otitis media Seizures ([facility]) HISTORY PAST MEDICAL HISTORY SOCIAL HISTORY Past Medical History: Diagnosis Date Acute exacerbation of asthma with allergic rhinitis ([facility]) Allergies Asthma ([facility]) At low risk for fall Bipolar affective, mixed (HCC) ([facility]) Change in blood pressure high and low Cholecystitis 2008 Chronic migraine without aura without status migrainosus, not intractable ([facility]) Depressive disorder ([facility]) OMID (generalized anxiety disorder) ([facility]) History of hysterectomy 10/01/2021 Insomnia, persistent Migraines ([facility]) Mild persistent asthma without complication ([facility]) Morbid obesity with BMI of 40.0-44.9, adult ([facility]) PCOS (polycystic ovarian syndrome) Psychogenic nonepileptic seizure ([facility]) Right otitis media Seizures ([facility]) stressed induced Social History Tobacco Use Smoking [...] nursing note reviewed. Exam conducted with a pencil sorter present. Vitals: Estimated body mass index is [...] Zay Blas DO documented in this encounter [facility] 02-28-2024 History of Present illness Narrative [...] in female 12/19/2022 Mixed bipolar I disorder ([facility]) 01/24/2023 Chronic migraine without aura without status migrainosus, not intractable ([facility]) 01/24/2023 Generalized anxiety disorder ([facility]) 01/24/2023 Persistent disorder of initiating or maintaining sleep 01/24/2023 Mild persistent asthma ([facility]) 01/24/2023 Polycystic ovaries 01/24/2023 Psychogenic nonepileptic seizure ([facility]) 01/24/2023 Class 3 severe obesity due to excess calories without serious comorbidity with body mass index (BMI) of 50.0 to 59.9 in adult ([facility]) 03/21/2023 Mild persistent asthma with (acute) exacerbation ([facility]) 10/10/2023 Fatigue 01/01/2024 Encounter for long-term (current) [...] Acute exacerbation of asthma with allergic rhinitis ([facility]) Allergies Asthma ([facility]) At low risk for fall Bipolar affective, mixed (HCC) ([facility]) Change in blood pressure Cholecystitis 2008 Depressive disorder ([facility]) OMID (generalized anxiety disorder) ([facility]) History of hysterectomy 10/01/2021 Insomnia, persistent Migraines ([facility]) Mild persistent asthma without complication ([facility]) Morbid obesity with BMI of 40.0-44.9, adult ([facility]) PCOS (polycystic ovarian syndrome) Right otitis media Seizures ([facility]) HISTORY PAST MEDICAL HISTORY SOCIAL HISTORY Past Medical History: Diagnosis Date Acute exacerbation of asthma with allergic rhinitis ([facility]) Allergies Asthma ([facility]) At low risk for fall Bipolar affective, mixed (HCC) ([facility]) Change in blood pressure high and low Cholecystitis 2008 Chronic migraine without aura without status migrainosus, not intractable ([facility]) Depressive disorder ([facility]) OMID (generalized anxiety disorder) ([facility]) History of hysterectomy 10/01/2021 Insomnia, persistent Migraines ([facility]) Mild persistent asthma without complication ([facility]) Morbid obesity with BMI of 40.0-44.9, adult ([facility]) PCOS (polycystic ovarian syndrome) Psychogenic nonepileptic seizure ([facility]) Right otitis media Seizures ([facility]) stressed induced Social History Tobacco Use Smoking [...] nursing note reviewed. Exam conducted with a pencil sorter present. Vitals: Estimated body mass index is [...] Zay Blas DO documented in this encounter [facility] 02-26-2024 Telephone encounter Note Pt advised [facility] 02-26-2024 Miscellaneous Notes Pt advised [facility] Patients elizabeth harmon is gma and they are both pts of DB. She wondered if she could become a mortgage loan specialist here with us. And if not db she asked for dominic. Pt does know we are not accepting new patients but asked if I could send this back - was told no on Monday. documented in this encounter [facility] 02-26-2024 Telephone encounter Note [facility] ACCEPT PT [facility] 02-26-2024 Telephone encounter Note Patients elizabeth harmon is gma and they are both pts of DB. She wondered if she could become a mortgage loan specialist here with us. And if not db she asked for dmoinic. Pt does know we are not accepting new patients but asked if I could send this back - was told no on Monday. [facility] 02-22-2024 Telephone encounter Note Summary: MARY Jordan Images from the original note were not included. Prior Authorization submitted via CoverMyMeds on 02/22/2024: Insurance: [place] Medicaid Medication: Zolmitriptan Chong Code: [email or web address] Awaiting Response [facility] 02-22-2024 Miscellaneous Notes Summary: PA Zolmitriptan Images from the original note were not included. Prior Authorization submitted via CoverMyMeds on 02/22/2024: Insurance: [place] Medicaid Medication: Zolmitriptan Chong Code: [email or web address] Awaiting Response documented in this encounter [facility] 02-09-2024 History of Present illness Narrative Associated Problem(s): Mild persistent asthma with (acute) exacerbation ([facility]) Recent flare but not able to take [...] wo IV contrast documented in this encounter [facility] 01-30-2024 Note Addended by: SAGAR BARTH on: 01/30/2024 02:59 PM Modules accepted: Orders [facility] 01-30-2024 Telephone encounter Note The following approved medication requests have been transmitted electronically. Requested Prescriptions Signed Prescriptions Disp Refills ZOLMitriptan (ZOMIG) 5 mg nasal spray 12 Each 5 Sig: Use 1 Helix in the nose as needed at onset of migraine headache. If symptoms persist or return, may repeat dose in other nostril after 2 hours. Maximum of 2 sprays per 24 hours Authorizing Provider: SAGAR BARTH APRN.CNP [facility] 01-30-2024 Miscellaneous Notes Addended by: SAGAR BARTH on: 01/30/2024 02:59 PM Modules accepted: Orders The following approved medication requests have been transmitted electronically. Requested Prescriptions Signed Prescriptions Disp Refills ZOLMitriptan (ZOMIG) 5 mg nasal spray 12 Each 5 Sig: Use 1 Helix in the nose as needed at onset of migraine headache. If symptoms persist or return, may repeat dose in other nostril after 2 hours. Maximum of 2 sprays per 24 hours Authorizing Provider: SAGAR BARTH APRN.BUTTON TUFTING MACHINE OPERATOR Dispense 12 pls. I rewrote the rx. Sagar Barth APRN.CNP Per last Rx on 11/10/2023: Disp Refills Start End ZOLMitriptan (ZOMIG) 5 mg nasal spray 10 Each 5 11/10/2023 -- Sig: Use 1 Helix in the nose as needed at onset [...] to verify quantity on zolmitriptan. Callback number: [phone] documented in this encounter [facility] 01-30-2024 Telephone encounter Note Dispense 12 pls. I rewrote the rx. Sagar Barth APRN.CNP [facility] 01-29-2024 Telephone encounter Note Per last Rx on 11/10/2023: Disp Refills Start End ZOLMitriptan (ZOMIG) 5 mg nasal spray 10 Each 5 11/10/2023 -- Sig: Use 1 Helix in the nose as needed at onset of migraine headache. If symptoms persist or return, may repeat dose in other nostril after 2 hours. Maximum of 2 sprays per 24 hours I called the pharmacy and hey need to know if Provider would like to dispense #6 or #12 cartridges. They do not come in 10. Please advise. Thank you [facility] 01-29-2024 Telephone encounter Note Name of Caller: nicky Relationship to patient: pharmacy Last visit in this department: 09/19/2023 Reason for Call: Other : need to verify quantity on zolmitriptan. Callback number: [phone] [facility] 01-23-2024 History of Present illness Narrative Associated Problem(s): SOB (shortness of breath) on exertion Severe symptom and check CXR. Use albuterol PRN and start prednisone. Associated Problem(s): Mild persistent asthma with (acute) exacerbation ([facility]) Continued symptoms and treat with prednisone and [...] Visit Mild persistent asthma with (acute) exacerbation ([facility]) - Primary Continued symptoms and treat with [...] CBC and differential documented in this encounter [facility] 01-22-2024 Note HNO ID: [id number] Author: GETACHEW CANCINO RN Service: ? Author Type: Registered Nurse Type: Progress Notes Filed: 01/22/2024 15:58 Note Text: Pt in for third day of infusion. Pt rated headache 9/10. Pt has severe nausea and moderate dizziness. Educated pt on medications to be administered. Pt agreed to proceed as ordered. Morning Babysitter yes Patient reports she stopped vomiting but [...] via wheelchair to her in the lobby. [facility] 01-22-2024 History of Present illness Narrative Pt in for third day of infusion. Pt rated headache 9/10. Pt has severe nausea and moderate dizziness. Educated pt on medications to be administered. Pt agreed to proceed as ordered. Morning Babysitter yes Patient reports she stopped vomiting but [...] in the lobby. documented in this encounter [facility] 01-22-2024 Note HNO ID: [id number] Author: RAIZA MORALES APRN.BUTTON TUFTING MACHINE OPERATOR Service: ? Author Type: Nurse Practitioner Type: [...] Lymph 1.00 - 4.00 k/uL 0.84 Abs [place] <0.87 k/uL 0.06 Abs Eosin <0.46 k/uL [...] ZOLMitriptan (ZOMIG) 5 mg nasal sprayUse 1 Helix in the nose as needed at onset [...] and clear, coherent, and relevant. Short and custodial memory, cognition and general fund of knowledge [...] which included p (more content not included)... [facility] 01-22-2024 History of Present illness Narrative Images [...] Lymph 1.00 - 4.00 k/uL 0.84 Abs [place] <0.87 k/uL 0.06 Abs Eosin <0.46 k/uL [...] ZOLMitriptan (ZOMIG) 5 mg nasal spray^Use 1 Helix in the nose as needed at onset [...] and clear, coherent, and relevant. Short and bed bug exterminator memory, cognition and general fund of [...] which included preparing to see the patient, [id number] patient care, completing clinical documentation, and obtaining and/or reviewing separately obtained history. Raiza Morales APRN.FADY Headache [facility] January 22, 2024 documented in this encounter [facility] 01-19-2024 Note HNO ID: [id number] Author: GETACHEW CANCINO RN Service: ? Author Type: Registered Nurse Type: Progress Notes Filed: 01/19/2024 11:55 Note Text: Pt in for second day of infusion. Pt rated headache 10/10. Pt has severe nausea and severe dizziness. Educated pt on medications to be administered. Pt agreed to proceed as ordered. Morning Babysitter: yes Patient took Valium 10 mg tabl [...] Pt d/c via wheelchair to her in [facility]. Instructed patient and to take caution with ambulating. Patient is feeling sedated. [facility] 01-19-2024 History of Present illness Narrative Pt in for second day of infusion. Pt rated headache 10/10. Pt has severe nausea and severe dizziness. Educated pt on medications to be administered. Pt agreed to proceed as ordered. Morning Babysitter: yes Patient took Valium 10 mg tabl [...] Pt d/c via wheelchair to her in [facility]. Instructed patient and to take caution with ambulating. Patient is feeling sedated. documented in this encounter [facility] 01-17-2024 Note HNO ID: [id number] Author: CLAUDIA MAYNARD RN Service: ? Author [...] PRN Zofran given for nausea. Discharged to certified driver examiner via wheelchair. [facility] 01-17-2024 History of Present illness Narrative Patient [...] PRN Zofran given for nausea. Discharged to certified driver examiner via wheelchair. documented in this encounter [facility] 01-17-2024 Note HNO ID: [id number] Author: ОЛЬГА AGUILAR APRN.BUTTON TUFTING MACHINE OPERATOR Service: ? Author Type: Nurse Practitioner Type: Progress Notes Filed: 01/17/2024 07:59 Note Text: [facility] - Virtual Visit Infusion Triage This visit was conducted as a virtual visit, with patient's permission, via ZOOM. It required patient-provider interaction for the medical decision making as documented below. Patient stated name and Patient location [place], [place] I have communicated my name and active licensure. The patient's identity and physical location were verified at the time of this visit. Either the patient or their legal graphic art sales representative has been informed of the [...] [place], New health events/diagnosis since last visit ([place]/stroke/DM/HTN/etc): denies Cardiovascular risk factors: obesity Past infusion [...] Lymph 1.00 - 4.00 k/uL 0.84 Abs [place] <0.87 k/uL 0.06 Abs Eosin <0.46 k/uL <0.03 Abs [place] <0.11 k/uL <0.03 NRBC /100 WBC 0.0 Analgesic Ketorolac (Toradol) Anti-Convulsant Lamotrigine (Lamictal) Topiramate (Topamax, Trokendi XL, Qudexy) Anti-Depressant and Antipsychotic Amitriptyline (Elavil) Haugan (Eskalith, Lithobid) Nortriptyline (Pamelor, Aventyl) Anti-Migraine Dihydroergotamine [...] sprayUse 1 Sp (more content not included)... [facility] 01-16-2024 Telephone encounter Note PAPO: 12/05/2023 with Ольга Aguilar APRN.BUTTON TUFTING MACHINE OPERATOR [facility] 01-16-2024 Miscellaneous Notes PAPO: 12/05/2023 with Ольга Aguilar APRN.BUTTON TUFTING MACHINE OPERATOR documented in this encounter [facility] 01-09-2024 History of Present illness Narrative Associated Problem(s): Chronic migraine without aura without status migrainosus, not intractable ([facility]) [place] worse and follow with specialists. Associated [...] labs. Associated Problem(s): Mixed bipolar I disorder ([facility]) Denies worsening symptoms and follow with specialists [...] (BMI) of 50.0 to 59.9 in adult ([facility]) Patient overweight and difficult time losing weight. [...] 50 MG tablet documented in this encounter [facility] 01-05-2024 Note HNO ID: [id number] Author: LENNIE PALACIOS RN Service: ? Author [...] after Benadryl given. 1345 Patient discharged to certified driver examiner in wheelchair , patient sleepy but verbalizing and ambulating wheelchair used as a precaution Patient able to walk to wheelchair without difficulty. [facility] 01-05-2024 History of Present illness Narrative 1230 [...] after Benadryl given. 1345 Patient discharged to certified driver examiner in wheelchair , patient sleepy but verbalizing and ambulating wheelchair used as a precaution Patient able to walk to wheelchair without difficulty. documented in this encounter [facility] 12-05-2023 History of Present illness Narrative Images from the original note were not included. [facility] - Follow up Virtual Visit Last OV: 08/23/23 Sona Barth APRN Accompanied by: Self This visit was conducted as a virtual visit, with patient's permission, via ZOOM. It required patient-provider interaction for the medical decision making as documented below. Patient stated name and Patient location [place], [place] I have communicated my name and active licensure. The patient's identity and physical location were verified at the time of this visit. Either the patient or their legal graphic art sales representative has been informed of the [...] (ZOMIG) 5 mg nasal spray Use 1 Helix in the nose as needed at onset [...] these with the patient: yes Ольга Aguilar APRN.BUTTON TUFTING MACHINE OPERATOR Studies to Review: No New Health Issues: [...] XL, Qudexy) Anti-Depressant and Antipsychotic Amitriptyline (Elavil) Haugan (Eskalith, Lithobid) Nortriptyline (Pamelor, Aventyl) Blood Pressure [...] which included preparing to see the patient, [id number] patient care, completing clinical documentation, and counseling and educating the patient/family/caregiver. Ольга Aguilar APRN.FADY documented in this encounter [facility] 12-05-2023 Note HNO ID: [id number] Author: ОЛЬГА AGUILAR APRN.FADY Service: ? Author [...] below. Patient stated name and Patient location [place], [place] I have communicated my name and active licensure. The patient's identity and physical location were verified at the time of this visit. Either the patient or their legal graphic art sales representative has been informed of the [...] (ZOMIG) 5 mg nasal spray Use 1 Helix in the nose as needed at onset [...] 03/22/2023 07/10/2023 1 (more content not included)... [facility] 11-15-2023 History of Present illness Narrative Associated [...] MG per tablet documented in this encounter [facility] 11-10-2023 Telephone encounter Note The following approved medication requests have been transmitted electronically. Requested Prescriptions Signed Prescriptions Disp Refills ZOLMitriptan (ZOMIG) 5 mg nasal spray 10 Each 5 Sig: Use 1 Helix in the nose as needed at onset [...] spasm (migraine). Authorizing Provider: SAGAR BARTH APRN.CNP [facility] 11-10-2023 Miscellaneous Notes The following approved medication requests have been transmitted electronically. Requested Prescriptions Signed Prescriptions Disp Refills ZOLMitriptan (ZOMIG) 5 mg nasal spray 10 Each 5 Sig: Use 1 Helix in the nose as needed at onset [...] SAGAR BARTH APRN.CNP patient requesting refill via [employer]. Last OV: 09/19/2023 Future OV: None scheduled Last prescribed: 4 months ago (07/10/2023) by Sagar Barth APRN.CNP Requested Prescriptions Pending Prescriptions Disp Refills ZOLMitriptan (ZOMIG) 5 mg nasal spray 10 Each 5 Sig: Use 1 Helix in the nose as needed at onset [...] muscle spasm (migraine). documented in this encounter [facility] 11-10-2023 Telephone encounter Note The following approved medication requests have been transmitted electronically. Requested Prescriptions Signed Prescriptions Disp Refills promethazine (PHENERGAN) 25 mg tablet 90 tablet 5 Sig: Take 1 tablet by mouth every 4 hours as needed. FOR NAUSEA Authorizing Provider: SAGAR BARTH APRN.CNP [facility] 11-10-2023 Miscellaneous Notes The following approved [...] hours as needed. FOR NAUSEA Pharmacy Name: [facility] documented in this encounter [facility] 11-10-2023 Telephone encounter Note Physician: Tab Call from patient requesting refill. Please E-Scribe Last office visit 09/19/23 with Green in person Next office visit N/A Requested Prescriptions Pending Prescriptions Disp Refills promethazine (PHENERGAN) 25 mg tablet 90 tablet 1 Sig: Take 1 tablet by mouth every 4 hours as needed. FOR NAUSEA Pharmacy Name: [facility] 11-10-2023 Telephone encounter Note patient requesting refill via [employer]. Last OV: 09/19/2023 Future OV: None scheduled Last prescribed: 4 months ago (07/10/2023) by Sagar Barth APRN.BUTTON TUFTING MACHINE OPERATOR Requested Prescriptions Pending Prescriptions Disp Refills ZOLMitriptan (ZOMIG) 5 mg nasal spray 10 Each 5 Sig: Use 1 Helix in the nose as needed at onset [...] day as needed for muscle spasm (migraine). [facility] 10-13-2023 Note HNO ID: [id number] Author: GETACHEW CANCINO RN Service: ? Author Type: Registered Nurse Type: Progress Notes Filed: 10/13/2023 14:00 Note Text: Pt in for Vyepti infusion. Pt rated headache 8 /10. Pt has severe nausea and mild dizziness. Educated pt on medications to be administered. Pt agreed to proceed as ordered. Morning Babysitter: yes Zofran 8 mg IVP given for [...] drive patient home. Patient d/c via wheelchair.. [facility] 10-13-2023 History of Present illness Narrative Pt in for Vyepti infusion. Pt rated headache 8 /10. Pt has severe nausea and mild dizziness. Educated pt on medications to be administered. Pt agreed to proceed as ordered. Morning Babysitter: yes Zofran 8 mg IVP given for [...] d/c via wheelchair.. documented in this encounter [facility] 10-10-2023 History of Present illness Narrative Associated Problem(s): Mild persistent asthma with (acute) exacerbation ([facility]) Continued symptoms and treat with prednisone and [...] MG per tablet documented in this encounter [facility] 09-19-2023 History of Present illness Narrative [...] XL, Qudexy) Anti-Depressant and Antipsychotic Amitriptyline (Elavil) Haugan (Eskalith, Lithobid) Nortriptyline (Pamelor, Aventyl) Anti-Migraine Dihydroergotamine [...] ZOLMitriptan (ZOMIG) 5 mg nasal spray^Use 1 Helix in the nose as needed at onset [...] these with the patient: yes Sagar Barth APRN.BUTTON TUFTING MACHINE OPERATOR HEADACHE SCORES: 03/22/2023 07/10/2023 09/19/2023 Headache Questions [...] spontaneous and fluent without dysarthria. Short and custodial memory, cognition and general fund of knowledge [...] XL, Qudexy) Anti-Depressant and Antipsychotic Amitriptyline (Elavil) Haugan (Eskalith, Lithobid) Nortriptyline (Pamelor, Aventyl) Blood Pressure [...] which included preparing to see the patient, [id number] patient care, completing clinical documentation, obtaining and/or reviewing separately obtained history, counseling and educating the patient/family/caregiver, ordering medications, tests, or procedures, and care coordination (not separately reported). Sagar Barth APRN.CNP [facility] September 19, 2023 documented in this encounter [facility] 09-19-2023 Note HNO ID: [id number] Author: SAGAR BARTH APRN.CNP Service: ? Author [...] XL, Qudexy) Anti-Depressant and Antipsychotic Amitriptyline (Elavil) Haugan (Eskalith, Lithobid) Nortriptyline (Pamelor, Aventyl) Anti-Migraine Dihydroergotamine [...] ZOLMitriptan (ZOMIG) 5 mg nasal sprayUse 1 Helix in the nose as needed at onset [...] these with the patient: yes Sagar Barth APRN.FADY HEADACHE SCORES: 03/22/2023 07/10/2023 09/19/2023 Headache Questions [...] of headache after (more content not included)... [facility] 08-18-2023 Instructions Curtis Lepe PA-C - 08/18/2023 2:39 PM EDT You received a greater occipital nerve block (GONB) today You may feel sore tomorrow at the site of the injection. You may use heat or ice for discomfort and gentle stretching. This should resolve in 24-36 hours. Greater Occipital Nerve Block (GONB) Article in [employer] Journal By: Molina Barraza MD Many patients with chronic headache report that their pain typically arises from the neck or, more specifically, the base of the skull. Often that pain arises on one side or the other and extends forward to involve the top of the head, the restorationism, the forehead, the eye or some combination [...] at least one more try. https://americanheadachesociety. org/wp-content/uploads//O taqwbvod-Cazjj-Nsmfva_Amz-2010.p df documented in this encounter [facility] 08-18-2023 History of Present illness Narrative [...] 1 month Curtis Lepe PA-C [facility] August 18, 2023 documented in this encounter [facility] 08-18-2023 Note HNO ID: [id number] Author: CURTIS LEPE PA-C Service: ? Author Type: Physician Chapter Relations Administrator Type: Progress Notes Filed: 08/18/2023 14:39 Note [...] 1 month Curtis Lepe PA-C [facility]ache [facility] August 18, 2023 [facility] 08-16-2023 Telephone encounter Note Forwarded to provider for review. PAPO: 07/10/2023 Future OV: 09/19/2023 Encounter from [facility] today 08/16/2023 [facility] 08-16-2023 Miscellaneous Notes Forwarded to provider for review. PAPO: 07/10/2023 Future OV: 09/19/2023 Encounter from [facility] today 08/16/2023 documented in this encounter [facility] 07-10-2023 History of Present illness Narrative [...] visit. Either the patient or their legal graphic art sales representative has been informed of the [...] XL, Qudexy) Anti-Depressant and Antipsychotic Amitriptyline (Elavil) Haugan (Eskalith, Lithobid) Nortriptyline (Pamelor, Aventyl) Anti-Migraine Dihydroergotamine [...] ZOLMitriptan (ZOMIG) 5 mg nasal spray^Use 1 Helix in the nose as needed at onset [...] these with the patient: yes Sagar Barth APRN.BUTTON TUFTING MACHINE OPERATOR HEADACHE SCORES: 12/12/2022 03/22/2023 07/10/2023 Headache Questions [...] Lymph 1.00 - 4.00 k/uL 0.84 Abs [place] <0.87 k/uL 0.06 Abs Eosin <0.46 k/uL [...] spontaneous and fluent without dysarthria. Short and custodial memory, cognition and general fund of knowledge [...] XL, Qudexy) Anti-Depressant and Antipsychotic Amitriptyline (Elavil) Haugan (Eskalith, Lithobid) Nortriptyline (Pamelor, Aventyl) Blood Pressure [...] (ZOMIG) 5 mg nasal spray Use 1 Helix in the nose as needed at onset [...] 40 minutes Sagar Barth APRN.FADY Headache Section [facility] July 10, 2023 documented in this encounter [facility] 06-26-2023 Telephone encounter Note Called Pt to clarify ER visit. States she was seen this morning at [facility] and given a Compazine and steroid shot States she cannot remember the name of steroid that was given. Information passed on to care team. Marc TOMAS RN Clinical Safety Person [facility] 06-26-2023 Miscellaneous Notes Called Pt to clarify ER visit. States she was seen this morning at [facility] and given a Compazine and steroid shot States she cannot remember the name of steroid that was given. Information passed on to care team. Marc TOMAS RN Clinical Safety Person [facility] documented in this encounter [facility] 06-26-2023 Telephone encounter Note Forwarded to provider for review. PAPO: 04/14/2023 with Suzan Ivey APRN.BUTTON TUFTING MACHINE OPERATOR Future OV: None scheduled [facility] 06-26-2023 Miscellaneous Notes Forwarded to provider for review. PAPO: 04/14/2023 with Suzan Ivey APRN.BUTTON TUFTING MACHINE OPERATOR Future OV: None scheduled MyChart message sent to patient to gain more information in regards to patient's migraine. documented in this encounter [facility] 06-26-2023 Telephone encounter Note MyChart message sent to patient to gain more information in regards to patient's migraine. [facility] 04-14-2023 Instructions Suzan Ivey APRN.FADY - 04/14/2023 10:49 AM EST Follow [...] video on how to give the injection: [email or web address]/ Aimovig must be approved by your insurance [...] refilled without delays. documented in this encounter [facility] 04-14-2023 History of Present illness Narrative [...] Level: 4/10 Hysterectomy for contraceptive Has a certified driver examiner Current Preventative: recently prescribed aimovig Current Abortive: [...] ZOLMitriptan (ZOMIG) 5 mg nasal spray^Use 1 Helix in the nose as needed at onset [...] and clear, coherent, and relevant. Short and custodial memory, cognition and general fund of knowledge [...] which included preparing to see the patient, dmve-[id number]-wpfw patient care, completing clinical documentation, obtaining and/or reviewing separately obtained history, performing a medically appropriate examination, counseling and educating the patient/family/caregiver, and ordering medications, tests, or procedures. Suzan Ivey APRN.BUTTON TUFTING MACHINE OPERATOR Headache Section [facility] documented in this encounter [facility] 04-14-2023 History of Present illness Narrative Pt in for 3rd day of infusion. Pt rated headache 6/10. Pt has severe nausea and moderate dizziness. Educated pt on medications to be administered. Pt agreed to proceed as ordered. Patient has certified driver examiner today. @0915: Patient tearful and c/o PIV site burning and very painful. No infiltration or redness of site noted, Ice-pack placed over PIV site. After a few minutes pt reported the ice-pack did not help and wanted PIV to be removed. PIV site removed. Patient remained very anxious and tearful, and requesting if anything else can be given for anxiety. [facility] T[facility]AMIN[facility] notified. New PIV site started, 2nd dose of Benadryl given for anxiety. 2nd line: Compazine given for severe nausea. Per [facility] TAX EXAMINER to hold Periactin today as the two doses of Benadryl and Compazine can cause drowsiness. Pts infusion complete, tolerated infusion. Headache 4/10. Pt stated no nausea and moderate dizziness. PIV site removed. Pt discharged from txt room at 1124 via wheelchair to ride in [place]. documented in this encounter [facility] 04-13-2023 History of Present illness Narrative [...] She is working with a psychiatrist in [place] . Voiced stress is her biggest trigger for headaches. 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 I mentioned to patient our reboot program . Patient very interested to learn about it. Message send to our materials scheduler and Rhina Lim to set up patient for evaluation. 1020 Patient sleeping on and off. Nausea subsiding. Patient declined Zofran. Stated Zofran ineffective. 1050 Infusion complete. Patient slept on and off. Nausea resolved. PINEDA 6/10. Patient verbal , appears sedated . D/c via wheel chair to her in [place]. documented in this encounter [facility] 04-13-2023 Miscellaneous Notes Patient is currently receiving infusions for headache. She is interested in learning about reboot program. Please schedule for evaluation. Getachew Cancino RN documented in this encounter [facility] 04-12-2023 History of Present illness Narrative [...] orders were placed: NO Cardiovascular risk factors (UT/STROKE/CAD/HTN): no Last triptan dose: none in 2 weeks Last muscle relaxer dose: none in past 2 week Last NSAID dose: none in last 2 weeks Current Pain level: 8/10 Nausea: severe Baseline Pain Level: 4/10 Has a certified driver examiner Current Preventative: Botox PREEMPT Protocol (last round [...] ZOLMitriptan (ZOMIG) 5 mg nasal spray^Use 1 Helix in the nose as needed at onset [...] and clear, coherent, and relevant. Short and custodial memory, cognition and general fund of knowledge [...] which included preparing to see the patient, dftv-we-lgll patient care, completing clinical documentation, obtaining and/or reviewing separately obtained history, performing a medically appropriate examination, counseling and educating the patient/family/caregiver, and ordering medications, tests, or procedures. Suzan Ivey APRN.FADY Headache Section [facility] documented in this encounter [facility] 04-12-2023 History of Present illness Narrative 1105 Patient in for first day of IV infusions. Patient rated headache 8/10. Patient stated severe nausea and mild dizziness. Patient educated on medications to be administered. Patient verbalized understanding and agreed to proceed with infusions. Patient requested the PRN IV Benadryl vs oral periactin for sedation. Rhina Ivey TAX EXAMINER updated and agreeable. PIV started on 3rd [...] dizziness. Pt discharged from treatment room with certified driver examiner via wheelchair due to effects from oral medications. documented in this encounter [facility] 04-12-2023 Instructions Suzan Ivey APRN.FADY - 04/12/2023 11:52 AM EST General [...] much light. These can be obtained at [employer].Calendly or [employer]: see list below. 2. Limit use of acute treatments (ffbb-ytv-tvafckm medications, triptans, etc.) to no more than [...] and quiet environment. Relax and reduce stress. Bcpecji9Gucmp is a free juan a that can instruct you on some simple relaxtion and breathing techniques. Http://[employer] is a free website that provides teaching [...] ensuing treatment plans will be released via [email or web address] and discussed during your follow-up appointment. Follow-up appointments are primarily provided by the Nurse Practitioners and Physician s Assistants in order to provide timely, accessible care. Grubstert: Please ask the schedulers to give you an activation code. The main way of communication is by [email or web address] rather than phone lines, so if you have not signed up, please do so. [email or web address] is also the way that you can review your labs and testing. We are not able to contact everyone to tell them results are normal. If you do not hear back from us regarding testing you have had, it should be considered normal or within normal range. If you have any questions about the results, you are free to message us. [email or web address] is meant for simple questions regarding medications, possible side effects, or other simple straight forward questions in limited sentences, rather than multiple paragraphs of discussion. MiniBanda.ru is not meant for, or efficient for these complex questions, extensive questions, extensive medication adjustments, complex new symptoms or concerns. These issues beyond simple questions require a follow up visit with myself, one of our physician assistants, nurse practitioners, or a Virtual Visit via computer or smart phone, as detailed further down. Please contact [employer] Support if you are having issues with [email or web address] or logging in to your virtual visit appointment. You can reach them at [phone] Refills: Please pay attention to when your [...] pepperoni, Pickled reynoso Pods of broad carmona (Burmese beans, Bahamian pea pods, Czech (jc) beans, frazier and navy beans Ripe [...] convincingly provoke headaches. documented in this encounter [facility] 04-03-2023 Miscellaneous Notes Ambulatory Pharmacy Prior Authorization Note Provider Intervention Required?: No- Pharmacy completed on your behalf. Rx Plan: Medicaid MCO ([place]) Drug: Aimovig 70MG/ML auto-injectors Cover My Meds Chong: [id number] Determination: Approved Prior Authorization/Case #: n/a Prior [...] refills. Prescriptions will now be processed through [facility] Delivery Pharmacy for determination of next steps. For questions relating to this submission, please contact [facility] at [phone] [facility] received prescription(s) for Aimovig 70MG/ML auto-injectors . Benefits investigation was conducted, indicating that a prior authorization is required. PA was initiated and pending review through AIRSIS. All pertinent clinical information was submitted to insurance. [facility] Chong: [id number] Ordering Provider: Sagar Barth APRN.Angely Schaefer RN [facility] P: , F: documented in this encounter [facility] 12-13-2022 Miscellaneous Notes Images from the original note were not included. Called patient to schedule for 3 days of Non DHE IV infusions. She started she was currently driving and would call back to schedule Sagar Barth APRN.FADY [place] Headache Infusion Scheduling Pool; P C21 Botox Pool Pls schedule for infusions, and also her next botox treatment - thank you. KG documented in this encounter [facility] 12-13-2022 Miscellaneous Notes PA submitted through CoverMyMeds for Orphenadrine Citrate ER 100mg. Chong Code: [id number] documented in this encounter [facility] 12-09-2022 Miscellaneous Notes Patient would also [...] Name: Emory Reilly documented in this encounter [facility] 11-11-2022 History of Present illness Narrative [...] to d/c since symptoms have resolved. Suzan Ivey APRN.BUTTON TUFTING MACHINE OPERATOR 0824: Patient in for first day of IV infusions. Patient rated headache 8/10. Patient stated severe nausea and severe dizziness. Patient educated on medications to be administered. Patient verbalized understanding and agreed to proceed with infusions. She does have a certified driver examiner. She would like PRN benadryl for sedation. [...] past with it. Message sent to Suzan Ivey TAX EXAMINER to update. Benadryl hypersensitivity released and administered. Pt also very nauseated. PRN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 in adult ([facility]) Fatigue, unspecified type Mixed bipolar I disorder ([facility]) Bipolar I disorder, most recent episode (or current) mixed, unspecified Chronic migraine without aura without status migrainosus, not intractable ([facility]) Pain, dental Mild persistent asthma with (acute) exacerbation ([facility])- Primary Generalized edema Edema SOB (shortness of breath) on exertion Shortness of breath Generalized abdominal pain- Primary Abdominal pain, generalized Intractable nausea and vomiting Mild persistent asthma with (acute) exacerbation ([facility]) Pelvic pain in female Unspecified symptom associated with female genital organs Complex ovarian cyst [facility]* Diagnosis Acute right flank pain- Primary Mild persistent asthma without complication ([facility]) Morbid obesity ([facility]) Morbid obesity Body mass index [BMI] 45.0-49.9, adult (Z68.42) Acute bronchitis due to other specified organisms- Primary Mild persistent asthma with (acute) exacerbation ([facility]) Acute bronchitis due to other specified organisms- Primary Mixed bipolar I disorder ([facility]) Bipolar I disorder, most recent episode (or current) mixed, unspecified Mild persistent asthma without complication ([facility])- Primary Class 3 severe obesity due to excess calories without serious comorbidity with body mass index (BMI) of 50.0 to 59.9 in adult ([facility]) Fatigue, unspecified type Mixed bipolar I disorder ([facility]) Bipolar I disorder, most recent episode (or current) mixed, unspecified Chronic migraine without aura without status migrainosus, not intractable ([facility]) Pain, dental Mild persistent asthma with (acute) exacerbation ([facility])- Primary Generalized edema Edema SOB (shortness of breath) on exertion Shortness of breath Generalized abdominal pain- Primary Abdominal pain, generalized Intractable nausea and vomiting Mild persistent asthma with (acute) exacerbation ([facility]) Cyst of right ovary Other and unspecified ovarian cyst Pelvic pain in female Unspecified symptom associated with female genital organs Pelvic peritoneal adhesions, female Pelvic peritoneal adhesions, female (postoperative) (postinfection) [facility] Diagnosis Bilateral ovarian cysts- Primary Other and unspecified ovarian cyst Preop testing Unspecified pre-operative examination [facility] Diagnosis Bilateral ovarian cysts- Primary Other and unspecified ovarian cyst Moderate asthma with acute exacerbation, unspecified whether persistent Encounter for preoperative pulmonary examination [facility]* Diagnosis Acute cough [R05.1]- Primary [facility]* Diagnosis Intractable chronic migraine without aura and without status migrainosus- Primary Chronic migraine without aura, with intractable migraine, so stated, without mention of status migrainosus [facility] Diagnosis Asthma, unspecified asthma severity, unspecified whether complicated, unspecified whether persistent- Primary Bilateral ovarian cysts Other and unspecified ovarian cyst Moderate asthma with acute exacerbation, unspecified whether persistent Encounter for preoperative pulmonary examination Pulmonary nodule Other diseases of lung, not elsewhere classified Gastroesophageal reflux disease, unspecified whether esophagitis present [facility]* Diagnosis Cyst of right ovary- Primary Other and unspecified ovarian cyst [facility]* Diagnosis Preop testing- Primary Unspecified pre-operative examination Bilateral ovarian cysts Other and unspecified ovarian cyst [facility]* Diagnosis S/P bilateral salpingo-oophorectomy Acquired absence of organ, genital organs [facility]* Diagnosis Post-op pain- Primary Other acute postoperative pain [facility]* Diagnosis Acute right flank [...] check Yeast infection [facility] Diagnosis Abdominal wall cellulitis- Primary Postoperative surgical complication involving genitourinary system associated with genitourinary procedure, unspecified complication Postoperative surgical complication involving genitourinary system associated with genitourinary procedure documented [facility]* Diagnosis Acute right flank pain- Primary Mild persistent asthma without complication (CMS/HCC) Morbid obesity (CMS/HCC) Morbid obesity Body mass index [BMI] 45.0-49.9, adult (Z68.42) Acute bronchitis due to other specified organisms- Primary Mild persistent asthma with (acute) exacerbation (CMS/HCC) Acute bronchitis due to other specified organisms- Primary Mixed bipolar I disorder ([facility]) Bipolar I disorder, most recent episode (or current) mixed, unspecified Mild persistent asthma without complication ([facility])- Primary Class 3 severe obesity due to excess calories without serious comorbidity with body mass index (BMI) of 50.0 to 59.9 in adult ([facility]) Fatigue, unspecified type Mixed bipolar I disorder ([facility]) Bipolar I disorder, most recent episode (or current) mixed, unspecified Chronic migraine without aura without status migrainosus, not intractable ([facility]) Pain, dental Mild persistent asthma with (acute) exacerbation ([facility])- Primary Generalized edema Edema SOB (shortness of breath) on exertion Shortness of breath Generalized abdominal pain- Primary Abdominal pain, generalized Intractable nausea and vomiting Mild persistent asthma with (acute) exacerbation ([facility]) Well woman exam with routine gynecological exam Routine gynecological examination documented [facility]* Diagnosis Postoperative surgical complication involving genitourinary system associated with genitourinary procedure, unspecified complication- Primary Post-op pain Other acute postoperative pain Sweating profusely Generalized hyperhidrosis Menopausal symptoms Symptomatic menopausal or female climacteric states Nausea and vomiting, unspecified vomiting type [facility] Diagnosis Post-operative pain- Primary Other acute postoperative pain [facility]* Diagnosis Muscle spasm- Primary Spasm of muscle Fatigue due to depression Nausea and vomiting, unspecified vomiting type Mild persistent asthma without status asthmaticus without complication Psychogenic nonepileptic seizure [facility]* Diagnosis Postoperative surgical complication involving genitourinary system associated with genitourinary procedure, unspecified complication [facility]* Diagnosis Postoperative surgical complication involving genitourinary system associated with genitourinary procedure, unspecified complication [facility]* Diagnosis Moderate persistent asthma, unspecified whether complicated [facility]* Diagnosis Postoperative infection, unspecified type, subsequent encounter- Primary [facility] Diagnosis Chronic migraine without aura, [...] of status migrainosus [facility] Diagnosis Intractable chronic migraine without aura and with status migrainosus- Primary Chronic migraine without aura, with intractable migraine, so stated, with status migrainosus Nausea Nausea alone Generalized anxiety disorder documented in this [facility]* Diagnosis S/P bilateral salpingo-oophorectomy- Primary Acquired absence of organ, genital organs Menopausal symptoms Symptomatic menopausal or female climacteric states [facility] Diagnosis Moderate persistent asthma with acute exacerbation- Primary Acute pansinusitis, recurrence not specified Antibiotic-induced yeast infection documented [facility] Diagnosis Moderate persistent asthma, unspecified whether complicated documented [facility]* Diagnosis Intractable chronic migraine without aura and without status migrainosus Chronic migraine without aura, with intractable migraine, so stated, without mention of status migrainosus documented in this [facility]* Diagnosis Weight loss- Primary Loss of weight Moderate persistent asthma with acute exacerbation Seasonal allergic rhinitis, unspecified trigger documented [facility]* Diagnosis Seasonal allergic rhinitis, unspecified trigger documented [facility]* Diagnosis Family history of genetic disorder- Primary Family history of other condition [facility] Diagnosis Acute right flank pain- Primary [...] (BMI) of 50.0 to 59.9 in adult Fatigue, unspecified type Mixed bipolar I disorder [...] Mild persistent asthma with (acute) exacerbation (CMS/HCC) Yeast infection BV (bacterial vaginosis) Unspecified vaginitis and vulvovaginitis Low libido Dyspareunia in female [facility] Diagnosis Status migrainosus- Primary Variants of migraine, not elsewhere classified, without mention of intractable migraine without mention of status migrainosus Intractable chronic migraine without aura and without status migrainosus Chronic migraine without aura, with intractable migraine, so stated, without mention of status migrainosus Generalized anxiety disorder Chronic migraine without aura, with intractable migraine, so stated, with status migrainosus Intractable chronic migraine without aura and with status migrainosus Chronic migraine without aura, with intractable migraine, so stated, with status migrainosus [facility] Diagnosis Eye infection, bilateral- Primary Ingrown nail of great toe [facility] Diagnosis Intractable chronic migraine without aura and without status migrainosus- Primary Chronic migraine without aura, with intractable migraine, so stated, without mention of status migrainosus [facility] Diagnosis Chronic migraine without aura, with intractable migraine, so stated, with status migrainosus- Primary Intractable chronic migraine without aura and with status migrainosus Chronic migraine without aura, with intractable migraine, so stated, with status migrainosus [facility]* Diagnosis Intractable chronic migraine without aura and with status migrainosus- Primary Chronic migraine without aura, with intractable migraine, so stated, with status migrainosus Status migrainosus Variants of migraine, not elsewhere classified, without mention of intractable migraine without mention of status migrainosus [facility]* Diagnosis Family history of genetic disorder- Primary Family history of other condition [facility] Diagnosis Allergic reaction, sequela- Primary [facility]* Diagnosis Intractable chronic migraine without aura and without status migrainosus- Primary Chronic migraine without aura, with intractable migraine, so stated, without mention of status migrainosus documented in this encounter [facility]* Diagnosis Acute right flank pain- Primary Mild persistent asthma without complication (HCC) Morbid obesity ([facility]-HCC) Morbid obesity Body mass index [BMI] 45.0-49.9, adult (Z68.42) Acute bronchitis due to other specified organisms- Primary Mild persistent asthma with (acute) exacerbation (HCC) Acute bronchitis due to other specified organisms- Primary Mixed bipolar I disorder (HCC) Bipolar I disorder, most recent episode (or current) mixed, unspecified Mild persistent asthma without complication (HCC)- Primary Class 3 severe obesity due to excess calories without serious comorbidity with body mass index (BMI) of 50.0 to 59.9 in adult ([facility]-HCC) Fatigue, unspecified type Mixed bipolar I disorder (HCC) Bipolar I disorder, most recent episode (or current) mixed, unspecified Chronic migraine without aura without status migrainosus, not intractable Pain, dental Mild persistent asthma with (acute) exacerbation (HCC)- Primary Generalized edema Edema SOB (shortness of breath) on exertion Shortness of breath Generalized abdominal pain- Primary Abdominal pain, generalized Intractable nausea and vomiting Mild persistent asthma with (acute) exacerbation (HCC) Hot flashes due to surgical menopause documented in this encounter [facility] Discharge instructionsNot on filedocumented in this encounterProMedica [...] SystemInstructionsNot on filedocumented in this encounterPro[facility]ica [facility] SystemInstructions* Attachments The following attachments cannot be sent through Care Everywhere. * Ingrown toenail (Burmese) [facility] (n[facility]ative)* Outpatient Procedure (Routine) - Pending Review Specialty Diagnoses / Procedures Referred By Sushma veloz Referred To Contact [facility] Diagnoses Seizure-like activity (HCC) Procedures EPIL EEG LEAD PLACEMENT EEG EXTENDED MONITORING 61-119 MINUTES ELECTROENCEPHALOGRAM REC COMA/SLEEP ONLY Geri Madera APRN.CNP [address] [place] [address] [address] [address] [place] [address] Referral ID Status Reason Start Date Expiration Date Visits Requested Visits Authorized [id number] Pending Review Auto-Generat ed Referral 10/26/2021 10/26/2022 1 1 [facility] for [facility] (narrative)* Outpatient Procedure (Routine) - Pending Review Specialty Diagnoses / Procedures Referred By Sushma veloz Referred To Contact [facility] Diagnoses Psychogenic nonepileptic seizure Spells of trembling Procedures EPIL AMBULATORY EEG EEG COMPLETE STD PHYS/QHP&GT;84 HR W/O Tyrone Diaz MD, PhD [address] [facility] [address] [place] [address] [address] [address] [place] [address] Referral ID Status Reason Start Date Expiration Date Visits Requested Visits Authorized [id number] Pending Review Auto-Generat ed Referral 10/29/2021 10/29/2022 1 1 * Outpatient Procedure (Routine) - Pending Review Specialty Diagnoses / Procedures Referred By Contac t Referred To Contact [facility] Diagnoses Psychogenic nonepileptic seizure Spells of trembling Procedures EPIL AMBULATORY EEG EEG COMPLETE STD PHYS/QHP&GT;84 HR W/O VID Tyrone Dolan MD, PhD [address] [facility] [place] [address] [place] [address] Referral ID Status Reason Start Date Expiration Date Visits Requested Visits Authorized [id number] Pending Review Auto-Generat ed Referral 10/29/2021 10/29/2022 1 1 * Consult, Test, Treat (Routine) - Authorized Specialty Diagnoses / Procedures Referred By Contac t Referred To Contact Diagnoses Chronic intractable headache, unspecified headache type Procedures CONSULT TO HEADACHE CLINIC OFFICE/OUTPATIENT [facility] MDM 60-74 MINUTES Tyrone Dolan MD, PhD [address] [phone] Referral ID Status Reason Start Date Expiration Date Visits Requested Visits Authorized [id number] Authorized PCP Requested Referral 10/29/2021 10/29/2022 1 1 [facility] for referral (narrative)* Outpatient Procedure (Routine) - Pending Review Specialty Diagnoses / Procedures Referred By Contac t Referred To Contact [facility] Diagnoses Seizure-like activity (HCC) Procedures EPIL EEG ROUTINE ELECTROENCEPHALOGRAM REC COMA/SLEEP ONLY Nelly Saldaña PA-C [address] [place] [address] [facility] [place] [address] [place] [address] Referral ID Status Reason Start Date Expiration Date Visits Requested Visits Authorized [id number] Pending Review Auto-Generat ed Referral 11/08/2021 11/08/2022 1 1 [facility] for referral (narrative)* Misc (Routine) - Pending Review Specialty Diagnoses / Procedures Referred By Contac t Referred To Contact Procedures Discharge Follow-Up George Michelle MD [address] [address] Phone: tel: fax: Referral ID Status Reason Start Date Expiration Date V isits Requested Visits Authorized [id number] Pending Review 04/10/2024 04/10/2025 1 1 * Misc (Routine) - Pending Review Specialty Diagnoses / Procedures Referred By Contac t Referred To Contact Procedures Hygiene George Michelle MD [address] [address] Phone: tel: fax: Referral ID Status Reason Start Date Expiration Date V isits Requested Visits Authorized [id number] Pending Review 04/10/2024 04/10/2025 1 1 [facility] Advance Directives No Advanced Directives Records FoundDocuments on File Type Date Recorded Patient Cap Sewer Expl anation ACP-Advance Directive ACP-Power of Shop Supervisor Latest Code Status on File Code Status [...] Referred To Contact Jesse Borrego MD [address] [phone] Referral ID Status Reason Start Date Expiration Date Visits Re quested Visits Authorized [id number] Closed 1 1 Specialty Diagnoses / Procedures Referred By Contac t Referred To Contact Diagnoses Intractable chronic migraine without aura and with status migrainosus Intractable chronic migraine without aura and without status migrainosus Procedures PROVIDER ORDERED FOLLOW UP OFFICE/OUTPATIENT [facility] 60 MINUTES Suzan Ivey APRN.CNP [address] [phone] Referral ID Status Reason Start Date Expiration Date Visits Requested Visits Authorized [id number] Authorized PCP Requested Referral 07/13/2023 04/13/2024 1 1 Specialty Diagnoses / Procedures Referred By Contac t Referred To Contact Diagnoses Intractable chronic migraine without aura and without status migrainosus Procedures PROVIDER ORDERED FOLLOW UP OFFICE/OUTPATIENT [facility] 60 MINUTES Sagar Barth APRN.BUTTON TUFTING MACHINE OPERATOR [address] [phone] Referral ID Status Reason Start Date Expiration Date Visits Requested Visits Authorized [id number] Authorized PCP Requested Referral 10/10/2023 07/09/2024 1 1 Specialty Diagnoses / Procedures Referred By Contac t Referred To Contact Sagar Barth APRN.CNP [address] [phone] Referral ID Status Reason Start Date Expiration Date V isits Requested Visits Authorized [id number] Authorized 07/10/2023 09/22/2023 1 1 Specialty Diagnoses / Procedures Referred By Contac t Referred To Contact Psychology Diagnoses Psychogenic nonepileptic seizure Procedures CONSULT TO PSYCHOLOGY OFFICE/OUTPATIENT [facility] 60 MINUTES Curtis Lepe PA-C [address] [place] [address] Referral ID Status Reason Start Date Expiration Date Visits Requested Visits Authorized [id number] Pending Review PCP Requested Referral 08/18/2023 08/17/2024 1 1 Additional Source Comments Source Comments (unrecognize d section and content) In the event this informatio n is protected by the Federal Confidentiality of Alcohol and Drug Abuse Patient Records regulations: The Federal rules restrict any use of the information to criminally investigate or prosecute any alcohol or drug abuse patient.[facility] the event this information is protected by the Federal Confidentiality of Alcohol and Drug Abuse Patient Records regulations: The Federal rules restrict any use of the information to criminally investigate or prosecute any alcohol or drug abuse patient.[facility] HospitalIn the event this information is protected by the Federal Confidentiality of Alcohol and Drug Abuse Patient Records regulations: The Federal rules restrict any use of the information to criminally investigate or prosecute any alcohol or drug abuse patient.[facility] HospitalIn the event this information is protected by the Federal Confidentiality of Alcohol and Drug Abuse Patient Records regulations: The Federal rules restrict any use of the information to criminally investigate or prosecute any alcohol or drug abuse patient.[facility] HospitalIn the event this information is protected by the Federal Confidentiality of Alcohol and Drug Abuse Patient Records regulations: The Federal rules restrict any use of the information to criminally investigate or prosecute any alcohol or drug abuse patient.[facility] HospitalIn the event this information is protected by the Federal Confidentiality of Alcohol and Drug Abuse Patient Records regulations: The Federal rules restrict any use of the information to criminally investigate or prosecute any alcohol or drug abuse patient.[facility] HospitalIn the event this information is protected by the Federal Confidentiality of Alcohol and Drug Abuse Patient Records regulations: The Federal rules restrict any use of the information to criminally investigate or prosecute any alcohol or drug abuse patient.[facility] HospitalIn the event this information is protected by the Federal Confidentiality of Alcohol and Drug Abuse Patient Records regulations: The Federal rules restrict any use of the information to criminally investigate or prosecute any alcohol or drug abuse patient.[facility] HospitalIn the event this information is protected by the Federal Confidentiality of Alcohol and Drug Abuse Patient Records regulations: The Federal rules restrict any use of the information to criminally investigate or prosecute any alcohol or drug abuse patient.[facility] HospitalIn the event this information is protected by the Federal Confidentiality of Alcohol and Drug Abuse Patient Records regulations: The Federal rules restrict any use of the information to criminally investigate or prosecute any alcohol or drug abuse patient.[facility] HospitalIn the event this information is protected by the Federal Confidentiality of Alcohol and Drug Abuse Patient Records regulations: The Federal rules restrict any use of the information to criminally investigate or prosecute any alcohol or drug abuse patient.[facility] HospitalIn the event this information is protected by the Federal Confidentiality of Alcohol and Drug Abuse Patient Records regulations: The Federal rules restrict any use of the information to criminally investigate or prosecute any alcohol or drug abuse patient.[facility] HospitalIn the event this information is protected by the Federal Confidentiality of Alcohol and Drug Abuse Patient Records regulations: The Federal rules restrict any use of the information to criminally investigate or prosecute any alcohol or drug abuse patient.[facility] HospitalIn the event this information is protected by the Federal Confidentiality of Alcohol and Drug Abuse Patient Records regulations: The Federal rules restrict any use of the information to criminally investigate or prosecute any alcohol or drug abuse patient.[facility] HospitalIn the event this information is protected by the Federal Confidentiality of Alcohol and Drug Abuse Patient Records regulations: The Federal rules restrict any use of the information to criminally investigate or prosecute any alcohol or drug abuse patient.[facility] HospitalIn the event this information is protected by the Federal Confidentiality of Alcohol and Drug Abuse Patient Records regulations: The Federal rules restrict any use of the information to criminally investigate or prosecute any alcohol or drug abuse patient.[facility] HospitalIn the event this information is protected by the Federal Confidentiality of Alcohol and Drug Abuse Patient Records regulations: The Federal rules restrict any use of the information to criminally investigate or prosecute any alcohol or drug abuse patient.[facility] HospitalIn the event this information is protected by the Federal Confidentiality of Alcohol and Drug Abuse Patient Records regulations: The Federal rules restrict any use of the information to criminally investigate or prosecute any alcohol or drug abuse patient.[facility] HospitalIn the event this information is protected by the Federal Confidentiality of Alcohol and Drug Abuse Patient Records regulations: The Federal rules restrict any use of the information to criminally investigate or prosecute any alcohol or drug abuse patient.[facility] HospitalIn the event this information is protected by the Federal Confidentiality of Alcohol and Drug Abuse Patient Records regulations: The Federal rules restrict any use of the information to criminally investigate or prosecute any alcohol or drug abuse patient.[facility] HospitalIn the event this information is protected by the Federal Confidentiality of Alcohol and Drug Abuse Patient Records regulations: The Federal rules restrict any use of the information to criminally investigate or prosecute any alcohol or drug abuse patient.[facility] HospitalIn the event this information is protected by the Federal Confidentiality of Alcohol and Drug Abuse Patient Records regulations: The Federal rules restrict any use of the information to criminally investigate or prosecute any alcohol or drug abuse patient.[facility] HospitalIn the event this information is protected by the Federal Confidentiality of Alcohol and Drug Abuse Patient Records regulations: The Federal rules restrict any use of the information to criminally investigate or prosecute any alcohol or drug abuse patient.[facility] HospitalIn the event this information is protected by the Federal Confidentiality of Alcohol and Drug Abuse Patient Records regulations: The Federal rules restrict any use of the information to criminally investigate or prosecute any alcohol or drug abuse patient.[facility] HospitalIn the event this information is protected by the Federal Confidentiality of Alcohol and Drug Abuse Patient Records regulations: The Federal rules restrict any use of the information to criminally investigate or prosecute any alcohol or drug abuse patient.[facility] HospitalIn the event this information is protected [...] or prosecute any alcohol or drug abuse patient.[facility] HospitalIn the event this information is protected by the Federal Confidentiality of Alcohol and Drug Abuse Patient Records regulations: The Federal rules restrict any use of the information to criminally investigate or prosecute any alcohol or drug abuse patient.[facility] HospitalIn the event this information is protected by the Federal Confidentiality of Alcohol and Drug Abuse Patient Records regulations: The Federal rules restrict any use of the information to criminally investigate or prosecute any alcohol or drug abuse patient.[facility] HospitalIn the event this information is protected by the Federal Confidentiality of Alcohol and Drug Abuse Patient Records regulations: The Federal rules restrict any use of the information to criminally investigate or prosecute any alcohol or drug abuse patient.[facility] HospitalIn the event this information is protected by the Federal Confidentiality of Alcohol and Drug Abuse Patient Records regulations: The Federal rules restrict any use of the information to criminally investigate or prosecute any alcohol or drug abuse patient.[facility] HospitalIn the event this information is protected by the Federal Confidentiality of Alcohol and Drug Abuse Patient Records regulations: The Federal rules restrict any use of the information to criminally investigate or prosecute any alcohol or drug abuse patient.[facility] HospitalIn the event this information is protected by the Federal Confidentiality of Alcohol and Drug Abuse Patient Records regulations: The Federal rules restrict any use of the information to criminally investigate or prosecute any alcohol or drug abuse patient.[facility] HospitalIn the event this information is protected by the Federal Confidentiality of Alcohol and Drug Abuse Patient Records regulations: The Federal rules restrict any use of the information to criminally investigate or prosecute any alcohol or drug abuse patient.[facility] HospitalIn the event this information is protected by the Federal Confidentiality of Alcohol and Drug Abuse Patient Records regulations: The Federal rules restrict any use of the information to criminally investigate or prosecute any alcohol or drug abuse patient.[facility] HospitalIn the event this information is protected by the Federal Confidentiality of Alcohol and Drug Abuse Patient Records regulations: The Federal rules restrict any use of the information to criminally investigate or prosecute any alcohol or drug abuse patient.[facility] HospitalIn the event this information is protected by the Federal Confidentiality of Alcohol and Drug Abuse Patient Records regulations: The Federal rules restrict any use of the information to criminally investigate or prosecute any alcohol or drug abuse patient.[facility] HospitalIn the event this information is protected by the Federal Confidentiality of Alcohol and Drug Abuse Patient Records regulations: The Federal rules restrict any use of the information to criminally investigate or prosecute any alcohol or drug abuse patient.[facility] HospitalIn the event this information is protected by the Federal Confidentiality of Alcohol and Drug Abuse Patient Records regulations: The Federal rules restrict any use of the information to criminally investigate or prosecute any alcohol or drug abuse patient.[facility] HospitalIn the event this information is protected by the Federal Confidentiality of Alcohol and Drug Abuse Patient Records regulations: The Federal rules restrict any use of the information to criminally investigate or prosecute any alcohol or drug abuse patient.[facility] HospitalIn the event this information is protected by the Federal Confidentiality of Alcohol and Drug Abuse Patient Records regulations: The Federal rules restrict any use of the information to criminally investigate or prosecute any alcohol or drug abuse patient.[facility] HospitalIn the event this information is protected by the Federal Confidentiality of Alcohol and Drug Abuse Patient Records regulations: The Federal rules restrict any use of the information to criminally investigate or prosecute any alcohol or drug abuse patient.[facility] HospitalIn the event this information is protected by the Federal Confidentiality of Alcohol and Drug Abuse Patient Records regulations: The Federal rules restrict any use of the information to criminally investigate or prosecute any alcohol or drug abuse patient.[facility] HospitalIn the event this information is protected by the Federal Confidentiality of Alcohol and Drug Abuse Patient Records regulations: The Federal rules restrict any use of the information to criminally investigate or prosecute any alcohol or drug abuse patient.[facility] HospitalIn the event this information is protected by the Federal Confidentiality of Alcohol and Drug Abuse Patient Records regulations: The Federal rules restrict any use of the information to criminally investigate or prosecute any alcohol or drug abuse patient.[facility] HospitalIn the event this information is protected by the Federal Confidentiality of Alcohol and Drug Abuse Patient Records regulations: The Federal rules restrict any use of the information to criminally investigate or prosecute any alcohol or drug abuse patient.[facility] HospitalIn the event this information is protected by the Federal Confidentiality of Alcohol and Drug Abuse Patient Records regulations: The Federal rules restrict any use of the information to criminally investigate or prosecute any alcohol or drug abuse patient.[facility] HospitalIn the event this information is protected by the Federal Confidentiality of Alcohol and Drug Abuse Patient Records regulations: The Federal rules restrict any use of the information to criminally investigate or prosecute any alcohol or drug abuse patient.[facility] HospitalIn the event this information is protected by the Federal Confidentiality of Alcohol and Drug Abuse Patient Records regulations: The Federal rules restrict any use of the information to criminally investigate or prosecute any alcohol or drug abuse patient.[facility] HospitalIn the event this information is protected by the Federal Confidentiality of Alcohol and Drug Abuse Patient Records regulations: The Federal rules restrict any use of the information to criminally investigate or prosecute any alcohol or drug abuse patient.[facility] HospitalIn the event this information is protected by the Federal Confidentiality of Alcohol and Drug Abuse Patient Records regulations: The Federal rules restrict any use of the information to criminally investigate or prosecute any alcohol or drug abuse patient.[facility] HospitalIn the event this information is protected by the Federal Confidentiality of Alcohol and Drug Abuse Patient Records regulations: The Federal rules restrict any use of the information to criminally investigate or prosecute any alcohol or drug abuse patient.[facility] HospitalIn the event this information is protected by the Federal Confidentiality of Alcohol and Drug Abuse Patient Records regulations: The Federal rules restrict any use of the information to criminally investigate or prosecute any alcohol or drug abuse patient.[facility] HospitalIn the event this information is protected by the Federal Confidentiality of Alcohol and Drug Abuse Patient Records regulations: The Federal rules restrict any use of the information to criminally investigate or prosecute any alcohol or drug abuse patient.[facility] HospitalIn the event this information is protected by the Federal Confidentiality of Alcohol and Drug Abuse Patient Records regulations: The Federal rules restrict any use of the information to criminally investigate or prosecute any alcohol or drug abuse patient.[facility] HospitalIn the event this information is protected by the Federal Confidentiality of Alcohol and Drug Abuse Patient Records regulations: The Federal rules restrict any use of the information to criminally investigate or prosecute any alcohol or drug abuse patient.[facility] HospitalIn the event this information is protected by the Federal Confidentiality of Alcohol and Drug Abuse Patient Records regulations: The Federal rules restrict any use of the information to criminally investigate or prosecute any alcohol or drug abuse patient.[facility] HospitalIn the event this information is protected by the Federal Confidentiality of Alcohol and Drug Abuse Patient Records regulations: The Federal rules restrict any use of the information to criminally investigate or prosecute any alcohol or drug abuse patient.[facility] HospitalIn the event this information is protected by the Federal Confidentiality of Alcohol and Drug Abuse Patient Records regulations: The Federal rules restrict any use of the information to criminally investigate or prosecute any alcohol or drug abuse patient.[facility] HospitalIn the event this information is protected by the Federal Confidentiality of Alcohol and Drug Abuse Patient Records regulations: The Federal rules restrict any use of the information to criminally investigate or prosecute any alcohol or drug abuse patient.[facility] HospitalIn the event this information is protected by the Federal Confidentiality of Alcohol and Drug Abuse Patient Records regulations: The Federal rules restrict any use of the information to criminally investigate or prosecute any alcohol or drug abuse patient.[facility] HospitalIn the event this information is protected by the Federal Confidentiality of Alcohol and Drug Abuse Patient Records regulations: The Federal rules restrict any use of the information to criminally investigate or prosecute any alcohol or drug abuse patient.[facility] HospitalIn the event this information is protected by the Federal Confidentiality of Alcohol and Drug Abuse Patient Records regulations: The Federal rules restrict any use of the information to criminally investigate or prosecute any alcohol or drug abuse patient.[facility] HospitalIn the event this information is protected by the Federal Confidentiality of Alcohol and Drug Abuse Patient Records regulations: The Federal rules restrict any use of the information to criminally investigate or prosecute any alcohol or drug abuse patient.[facility] HospitalIn the event this information is protected by the Federal Confidentiality of Alcohol and Drug Abuse Patient Records regulations: The Federal rules restrict any use of the information to criminally investigate or prosecute any alcohol or drug abuse patient.[facility] HospitalIn the event this information is protected by the Federal Confidentiality of Alcohol and Drug Abuse Patient Records regulations: The Federal rules restrict any use of the information to criminally investigate or prosecute any alcohol or drug abuse patient.[facility] HospitalIn the event this information is protected by the Federal Confidentiality of Alcohol and Drug Abuse Patient Records regulations: The Federal rules restrict any use of the information to criminally investigate or prosecute any alcohol or drug abuse patient.[facility] HospitalIn the event this information is protected by the Federal Confidentiality of Alcohol and Drug Abuse Patient Records regulations: The Federal rules restrict any use of the information to criminally investigate or prosecute any alcohol or drug abuse patient.[facility] HospitalIn the event this information is protected by the Federal Confidentiality of Alcohol and Drug Abuse Patient Records regulations: The Federal rules restrict any use of the information to criminally investigate or prosecute any alcohol or drug abuse patient.[facility] HospitalIn the event this information is protected by the Federal Confidentiality of Alcohol and Drug Abuse Patient Records regulations: The Federal rules restrict any use of the information to criminally investigate or prosecute any alcohol or drug abuse patient.[facility] Reason for Visit (unrecogniz ed section and content) Reason Comments Headache Specialty Diagnoses / Procedures Referred By Contac t Referred To Contact Diagnoses Intractable chronic migraine without aura and without status migrainosus Procedures INJECTION, EPTINEZUMAB-JJMR, 1 MG Sagar Barth, UMANG.BUTTON TUFTING MACHINE OPERATOR [address] [place] [address] Phone: tel: fax: Neurology [address] [place] [address] Phone: tel: fax: Referral ID Status Reason Start Date Expiration Date V isits Requested Visits Authorized [id number] Authorized 09/20/2023 09/25/2024 5 5 Reason Comments Headache Infusion Specialty Diagnoses / Procedures Referred By Contac t Referred To Contact Diagnoses Intractable chronic migraine without aura and without status migrainosus Procedures INJECTION, EPTINEZUMAB-JJMR, 1 MG Sagar Barth, ASSISTANT PLANT MANAGER.BUTTON TUFTING MACHINE OPERATOR [address] [place] [address] Phone: tel: fax: Neurology [address] [place] [address] Phone: tel: fax: Reason Comments Infusion Headache Specialty Diagnoses / Procedures Referred By Contac t Referred To Contact Neurology / HEADACHE Diagnoses NON-DHE #1 Procedures INFUSION HEADACHE Suzan Ivey APRN.BUTTON TUFTING MACHINE OPERATOR [address] [place] [address] Neur Headache Main [address] [place] [address] Referral ID Status Reason Start Date Expiration Date V isits Requested Visits Authorized [id number] Authorized 04/12/2023 02/20/2024 99 99 Reason Comments Migraine Specialty Diagnoses / Procedures Referred By Contac t Referred To Contact Diagnoses Intractable chronic migraine without aura and without status migrainosus Procedures PROVIDER ORDERED FOLLOW UP OFFICE/OUTPATIENT [facility] 60 MINUTES Sagar Barth APRN.BUTTON TUFTING MACHINE OPERATOR [address] [place] [address] Referral ID Status Reason Start Date Expiration Date V isits Requested Visits Authorized [id number] Closed PCP Requested Referral 10/10/2023 07/09/2024 1 1 Specialty Diagnoses / Procedures Referred By Contac t Referred To Contact Diagnoses Intractable chronic migraine without aura and without status migrainosus Procedures INJECTION, EPTINEZUMAB-JJMR, 1 MG Sagar Barth, UMANG.BUTTON TUFTING MACHINE OPERATOR [address] [place] [address] Neur Headache Main [address] [place] [address] Referral ID Status Reason Start Date Expiration Date V isits Requested Visits Authorized [id number] Authorized 09/20/2023 03/22/2024 2 2 Reason Comments Nerve Block Specialty Diagnoses / Procedures Referred By Contac t Referred To Contact Neurology / HEADACHE Diagnoses NON-DHE #1 Procedures INFUSION HEADACHE Suzan Ivey APRN.BUTTON TUFTING MACHINE OPERATOR [address] [id number] Neur Headache Main [address] [place] [address] Reason Comments Future Appointment [place], Any Reason Comments Migraine seen at [facility] yest erday for Migrane and D & [...] DHE Procedures INFUSION HEADACHE Abdifatah Brady MD [address] [place] [address] Neur Headache Main [address] [place] [address] Referral ID Status Reason Start Date Expiration Date Visits Re quested Visits Authorized [id number] Closed 07/28/2022 09/26/2022 1 1 Reason Comments Chronic Migraine Reason Comments Chronic Migraine Reason Comments Insurance Authorization Zomig 5MG nasal spray Reason Comments Infusion Specialty Diagnoses / Procedures Referred By Contac t Referred To Contact Neurology / HEADACHE Diagnoses POSSIBLE DHE/WAITING FOR ORDERS Procedures INFUSION HEADACHE Self Neur Headache [address] [place] [address] Referral ID Status Reason Start Date Expiration Date V isits Requested Visits Authorized [id number] Authorized 11/10/2022 02/08/2023 1 99 Reason Onset [...] proceed. Reason Comments Migraine Reason Comments Migraine Specialty Diagnoses / Procedures Referred By Contac t Referred To Contact Neurology / HEADACHE Diagnoses Chronic migraine without aura, intractable, without status migrainosus Migraines Nerve Block Procedures INJECTION AA&/STRD GREATER OCCIPITAL NERVE NERVE BLOCK Sagar Barth, UMANG.BUTTON TUFTING MACHINE OPERATOR [address] [place] [address] Tyrone Dolan MD, PhD [address] [facility] [address] [place] [address] Referral ID Status Reason Start Date Expiration Date Visits Re quested Visits Authorized [id number] Closed 08/28/2023 02/20/2024 1 1 Reason Onset Date Comments Refill Request 11/10/2023 Specialty Diagnoses / Procedures Referred By Contac t Referred To Contact Diagnoses Intractable chronic migraine without aura and without status migrainosus Procedures INJECTION, EPTINEZUMAB-JJMR, 1 MG Sagar Barth, ASSISTANT PLANT MANAGER.BUTTON TUFTING MACHINE OPERATOR [address] [place] [address] Ne[address] Headache [address] [facility] [place] [address] Reason Comments Fatigue Dizzy, shaky, very t [...] for preoperative pulmonary examination Mundo Martinez MD [address] [place] [address] Phone: tel: fax: Jefry Hills MD [address], [address] [address] Phone: tel: fax: Referral ID Status Reason Start Date Expiration Date Visits Requested Visits Authorized [id number] Pending Review Specialty Services Required 03/20/2024 03/20/2025 1 1 Reason Comments Wound Check Reason Comments Flu Symptoms Abdominal Pain Specialty Diagnoses / Procedures Referred By Contac t Referred To Contact Diagnoses Sepsis ([facility]) Abdominal wall cellulitis [facility] - Emergency Department [address] [place] [address] Phone: tel: fax: Referral ID Status Reason Start Date Expiration Date Visits Re quested Visits Authorized [id number] 1 1 Reason Comments Well Women Visit Reason Comments Post-op 2 week post-op Reason Comments Establish Care Reason Comments Migraine Chronic Migraine Reason Comments Insurance Authorization ubrelvy Reason Comments Follow-up Reason Comments sinus infection Reason Onset Date Comments Med Refill 05/24/2024 Reason Onset Date Comments Refill Request 05/31/2024 Reason Comments Fatigue Reason Comments Med Change Request Reason Comments Vaginitis/Bacterial Vaginosis Reason Comments Infusion Headache infusion sc heduling Reason Comments Eye Pain Specialty Diagnoses / Procedures Referred By Contac t Referred To Contact Neurology / HEADACHE Diagnoses NON-DHE INFUSION Procedures DEHYDROERGOTAMINE INJECTION INFUSION HEADACHE [facility] [address] [place] [address] Phone: tel:[phone] Neurology [address] [place] [address] Phone: tel: fax: Referral ID Status Reason Start Date Expiration Date V isits Requested Visits Authorized [id number] Authorized 08/02/2024 02/19/2025 99 99 Reason Comments Insurance Authorization Zavzpret 10MG/AC T solution Zavzpret 10MG/ACT solution Reason Onset Date Comments Genetic Testing Prior Authorization Request 07/2024 Reason Comments Discuss Hormones Scheduled Active and Recently Administ ered Medications [...] tissue infection 0911 (Given - Provider: Effie Keene, PRATIBHA)1601 (Given - Provider: Effie Keene, PRATIBHA) cefTRIAXone (ROCEPHIN) 1,000 mg in sodium chloride 0.9 % 50 mL IVPB-MBP (COMPLETED) 1,000 mg, intravenous, at 100 mL/hr, Administer over 30 Minutes, Once, On Mon04/08/24 at 1450, For 1 dose, Look-alike/sound-alike medication - verify indication for use. Do not co-administer with calcium-containing solutions such as Lactated Ringers., Indication: Intra-abdominal 1603 (New Bag - Provider: Lillie Antonio, RN)1633 (Stop Bag - Provider: Lillie Antonio, PRATIBHA) diazePAM (VALIUM) tablet 5 mg 5 mg, [...] Bojorquez, PRATIBHA) 0828 (Given - Provider: Effie Keene, PRATIBHA) diphenhydrAMINE (BENADRYL) injection 12.5 mg (COMPLETED) 12.5 [...] Look-alike/sound-alike medication - verify indication for use. 2020 (Given - Provider: Lo Peres RN) HYDROmorphone [...] 120mg/24 hours. 1159 (Given - Provider: Fredi oLwe, RN) lamoTRIgine (LaMICtal) tablet 200 mg 200 mg, oral, 2 times daily, First dose on Mon04/08/24 at 2145, Look-alike/sound-alike medication - verify indication for use. 221 (Given - Provider: Lo Peres RN) 1018 (Given - Provider: Fredi Lowe, RN)2135 (Given - Provider: Corby Bojorquez, RN) 0828 (Given - Provider: Effie Keene RN) lidocaine PF (XYLOCAINE) 10 mg/mL (1 %) injection 100 mg 100 mg (10 mL), infiltration, Once, On Mon04/08/24 at 1650, For 1 dose 1650 (Not Given - Provider: Lillie Antonio RN - Reason: Other - Comment: no longer needed per OBGYN) lidocaine-EPINEPHrine (XYLOCAINE W/EPI) 1 %-1:[id number] injection 30 mL (COMPLETED) 30 mL, intradermal, [...] Peres RN) 2136 (Given - Provider: Corby Bojorquez, PRATIBHA) LORazepam (ATIVAN) injection 1 mg (COMPLETED) 1 [...] 1646 (New Bag - Provider: Lillie Antonio, PRATIBHA)1746 (Stop Bag - Provider: Lillie Antonio, RN) morphine injection 4 mg (COMPLETED) 4 mg, intravenous, Once, On Mon04/08/24 at 1335, For 1 dose, Look-alike/sound-alike medication - verify indication for use. 1415 (Given - Provider: Lillie Antonio, PRATIBHA) ondansetron (PF) (ZOFRAN) injection 4 mg (COMPLETED) 4 mg, intravenous, Once, On Mon04/08/24 at 1335, For 1 dose, Administer over 2-5 minutes. 1416 (Given - Provider: Lillie Antonio RN) piperacillin-tazobactam (ZOSYN) 4.5 g in sodium [...] Lo Peres RN)2137 (Given - Provider: Corby Bojorquez RN) vancomycin (VANCOCIN) IVPB 1250 mg/250 mL in 0.9% sodium chloride (premix) (CANCELED) 1,250 mg, intravenous, at 167 mL/hr, Administer over 90 Minutes, Every 8 hours, First dose on Mon04/09/24 at 1030, VESICANT (YELLOW), Indication: Other, Specify: peritonitis 1215 (New Bag - Provider: Fredi Lowe RN)1345 (Stop Bag - Provider: Fredi Lowe RN)2133 (New Bag - Provider: Corby Bojorquez, RN)2303 [...] Lo Peres RN)100 (Given - Provider: Fredi Lowe RN)151 (Given - Provider: Fredi Lowe RN)211 (Given - Provider: Corby Bojorquez, RN) ibuprofen (MOTRIN) tablet 800 mg 800 mg, oral, Every 6 hours PRN, moderate pain - pain scale 4-6, Starting on Mon04/08/24 at 1825, Look-alike/sound-alike medication - verify indication for use. Take/Give with food or milk. 0444 (Given - Provider: Corby Bojorquez RN)1129 (Given - Provider: Effie Keene, PRATIBHA) iohexoL (OMNIPAQUE) 300 mg iodine/mL 100 mL (COMPLETED) 100 mL, intravenous, Once in imaging, contrast, Starting on Mon04/08/24 at 1521, For 1 dose, VESICANT (RED) 1525 (Given - Provider: Lamar Carrington ARRT) iohexoL (OMNIPAQUE) 300 mg iodine/mL 30 mL [...] Peres RN) 0203 (Given - Provider: Lo Peres RN)0704 (Given - Provider: oL Peres RN) oxyCODONE (ROXICODONE) immediate release tablet 5 mg 5 mg, oral, Every 4 hours PRN, severe pain - pain scale 7-10, Starting on Mon04/09/24 at 1549, Look-alike/sound-alike medication - verify indication for use. Immediate release. 1848 (Given - Provider: Fredi Lowe RN) 0832 (Given - Provider: Effie Keene, PRATIBHA)1502 (Given - Provider: Effie Keene, PRATIBHA) sodium chloride 0.9 % flush 10 mL [...] and content) DATE CREATED AUTHOR 12/26/2020 [facility] DATE CREATED AUTHOR AUTHOR'S ORGANIZ ATION 10/25/2021 [facility] DATE CREATED AUTHOR AUTHOR'S ORGANIZ ATION 05/26/2022 [facility] DATE CREATED AUTHOR AUTHOR'S ORGANIZ ATION 08/02/2022 [facility] DATE CREATED AUTHOR AUTHOR'S ORGANIZ ATION 07/20/2024 [facility] DATE CREATED AUTHOR AUTHOR'S ORGANIZ ATION 08/08/2024 [facility] DATE CREATED AUTHOR AUTHOR'S ORGANIZ ATION 09/03/2024 [facility] DATE CREATED AUTHOR AUTHOR'S ORGANIZ ATION 09/07/[address] [facility] EPIC Ordered Prescriptions (unrec ognized section and content) Prescription Sig Dispensed Refills Start Date End Da te lamoTRIgine (LAMICTAL) 25 MG tablet Take 2 tablets by mouth daily 30 tablet 3 10/21/2021 Care Teams (unrecognized sec tion and content) Passenger Brakeman Relationship Specialty Start Date End Date Derik Arthur, ASSISTANT PLANT MANAGER - BUTTON TUFTING MACHINE OPERATOR [address] [place] [id number] PCP - General Nurse Practitioner 12/24/20 Passenger Brakeman Relationship Specialty Start Date End Date Abdifatah Brady (Historical) PCP - General 05/21/13 Passenger Brakeman Relationship Specialty Start Date End Date Abdifatah Brady (Historical) PCP - General 05/21/13 Passenger Brakeman Relationship Specialty Start Date End Date Abdifatah Brady (Historical) PCP - General 05/21/13 Passenger Brakeman Relationship Specialty Start Date End Date Abdifatah Brady (Historical) PCP - General 05/21/13 Passenger Brakeman Relationship Specialty Start Date End Date Abdifatah Brady (Historical) PCP - General 05/21/13 Passenger Brakeman Relationship Specialty Start Date End Date Hoy, Abdifatah M (Historical) PCP - General 05/21/13 Passenger Brakeman Relationship Specialty Start Date End Date Hoy, Abdifatah M (Historical) PCP - General 05/21/13 Passenger Brakeman Relationship Specialty Start Date End Date Hoy, Abdifatah M (Historical) PCP - General 05/21/13 Passenger Brakeman Relationship Specialty Start Date End Date Hoy, Abdifatah M (Historical) PCP - General 05/21/13 Passenger Brakeman Relationship Specialty Start Date End Date Hoy, Abdifatah M (Historical) PCP - General 05/21/13 Passenger Brakeman Relationship Specialty Start Date End Date Hoy, Abdifatah M (Historical) PCP - General 05/21/13 Passenger Brakeman Relationship Specialty Start Date End Date Hoy, Abdifatah M (Historical) PCP - General 05/21/13 Passenger Brakeman Relationship Specialty Start Date End Date Hoy, Abdifatah M (Historical) PCP - General 05/21/13 Passenger Brakeman Relationship Specialty Start Date End Date Hoy, Abdifatah M (Historical) PCP - General 05/21/13 Passenger Brakeman Relationship Specialty Start Date End Date Hoy, Abdifatah M (Historical) PCP - General 05/21/13 Passenger Brakeman Relationship Specialty Start Date End Date Hoy, Abdifatah M (Historical) PCP - General 05/21/13 Passenger Brakeman Relationship Specialty Start Date End Date Hoy, Abdifatah M (Historical) PCP - General 05/21/13 Passenger Brakeman Relationship Specialty Start Date End Date Hoy, Abdifatah M (Historical) PCP - General 05/21/13 Passenger Brakeman Relationship Specialty Start Date End Date Hoy, Abdifatah M (Historical) PCP - General 05/21/13 Passenger Brakeman Relationship Specialty Start Date End Date Hoy, Abdifatah M (Historical) PCP - General 05/21/13 Passenger Brakeman Relationship Specialty Start Date End Date Hoy, Abdifatah M (Historical) PCP - General 05/21/13 Passenger Brakeman Relationship Specialty Start Date End Date Hoy, Abdifatah M (Historical) PCP - General 05/21/13 Passenger Brakeman Relationship Specialty Start Date End Date Hoy, Abdifatah M (Historical) PCP - General 05/21/13 Passenger Brakeman Relationship Specialty Start Date End Date Hoy, Abdifatah M (Historical) PCP - General 05/21/13 Passenger Brakeman Relationship Specialty Start Date End Date Hoy, Abdifatah M (Historical) PCP - General 05/21/13 Passenger Brakeman Relationship Specialty Start Date End Date Hoy, Abdifatah M (Historical) PCP - General 05/21/13 Passenger Brakeman Relationship Specialty Start Date End Date Hoy, Abdifatah M (Historical) PCP - General 05/21/13 Passenger Brakeman Relationship Specialty Start Date End Date Hoy, Abdifatah M (Historical) PCP - General 05/21/13 Passenger Brakeman Relationship Specialty Start Date End Date Hoy, Abdifatah M (Historical) PCP - General 05/21/13 Passenger Brakeman Relationship Specialty Start Date End Date Hoy, Abdifatah M (Historical) PCP - General 05/21/13 Passenger Brakeman Relationship Specialty Start Date End Date Hoy, Abdifatah M (Historical) PCP - General 05/21/13 Passenger Brakeman Relationship Specialty Start Date End Date Hoy, Abdifatah M (Historical) PCP - General 05/21/13 Passenger Brakeman Relationship Specialty Start Date End Date Hoy, Abdifatah M (Historical) PCP - General 05/21/13 Passenger Brakeman Relationship Specialty Start Date End Date Hoy, Abdifatah M (Historical) PCP - General 05/21/13 Passenger Brakeman Relationship Specialty Start Date End Date Lamont Shay MD [address] [place] [address] PCP - General Family Medicine 03/14/23 Passenger Brakeman Relationship Specialty Start Date End Date Hoy, Abdifatah M (Historical) PCP - General 05/21/13 Passenger Brakeman Relationship Specialty Start Date End Date Lamont Shay MD [address] [place] [id number] PCP - General Family Medicine 03/14/23 Passenger Brakeman Relationship Specialty Start Date End Date Lamont Shay MD [address] [place] [phone] PCP - General Family Medicine 03/14/23 Passenger Brakeman Relationship Specialty Start Date End Date Hoy, Abdifatah M (Historical) PCP - General 05/21/13 Passenger Brakeman Relationship Specialty Start Date End Date Hoy, Abdifatah M (Historical) PCP - General 05/21/13 Passenger Brakeman Relationship Specialty Start Date End Date Lamont Shay MD [address] [place], [place] [address] PCP - General Family Medicine 03/14/23 Passenger Brakeman Relationship Specialty Start Date End Date Abdifatah Brady (Historical) PCP - General 05/21/13 Passenger Brakeman Relationship Specialty Start Date End Date Lamont Shay MD [address] [place] [phone] PCP - General Family Medicine 03/14/23 Passenger Brakeman Relationship Specialty Start Date End Date Lamont Shay MD [address] [place] [address] PCP - General Family Medicine 03/14/23 Passenger Brakeman Relationship Specialty Start Date End Date Lamont Shay MD [address] [place] [address] PCP - General Family Medicine 03/14/23 Passenger Brakeman Relationship Specialty Start Date End Date Lamont Shay MD [address] [place] [address] PCP - General Family Medicine 03/14/23 Passenger Brakeman Relationship Specialty Start Date End Date Lamont Shay MD [address] [place] [address] PCP - General Family Medicine 03/14/23 Passenger Brakeman Relationship Specialty Start Date End Date Lamont Shay MD [address] [place] [phone] PCP - General Family Medicine 03/14/23 Passenger Brakeman Relationship Specialty Start Date End Date Lamont Shay MD [address] [place] [address] PCP - General Family Medicine 03/14/23 Passenger Brakeman Relationship Specialty Start Date End Date Lamont Shay MD [address] [place] [address] PCP - General Family Medicine 03/14/23 Passenger Brakeman Relationship Specialty Start Date End Date Lamont Shay MD [address] [place] [address] PCP - General Family Medicine 03/14/23 Passenger Brakeman Relationship Specialty Start Date End Date Lamont Shay MD [address] [place] [address] PCP - General Family Medicine 03/14/23 Passenger Brakeman Relationship Specialty Start Date End Date Lamont Shay MD [address] [place] [address] PCP - General Family Medicine 03/14/23 Passenger Brakeman Relationship Specialty Start Date End Date Lamont Shay MD [address] [place] [address] PCP - General Family Medicine 03/14/23 Passenger Brakeman Relationship Specialty Start Date End Date Lamont Shay MD [address] [place] [address] PCP - General Family Medicine 03/14/23 Passenger Brakeman Relationship Specialty Start Date End Date Lamont Shay MD [address] [place] [address] PCP - General Family Medicine 03/14/23 Passenger Brakeman Relationship Specialty Start Date End Date Lamont Shay MD PCP - General Family Medicine 06/22/22 Passenger Brakeman Relationship Specialty Start Date End Date Lamont Shay MD PCP - General Family Medicine 06/22/22 Passenger Brakeman Relationship Specialty Start Date End Date Lamont Shay MD PCP - General Family Medicine 06/22/22 Passenger Brakeman Relationship Specialty Start Date End Date Lamont Shay MD PCP - General Family Medicine 06/22/22 Passenger Brakeman Relationship Specialty Start Date End Date Lamont Shay MD PCP - General Family Medicine 06/22/22 Passenger Brakeman Relationship Specialty Start Date End Date Lamont Shay MD PCP - General Family Medicine 06/22/22 Passenger Brakeman Relationship Specialty Start Date End Date Corine Gold MD [address] [place] [address] PCP - General Internal Medicine 03/25/24 Passenger Brakeman Relationship Specialty Start Date End Date Corine Gold MD [address] [place] [address] PCP - General Internal Medicine 03/25/24 Passenger Brakeman Relationship Specialty Start Date End Date Corine Gold MD [address] [place] [address] PCP - General Internal Medicine 03/25/24 Passenger Brakeman Relationship Specialty Start Date End Date Corine Gold MD [address] [place] [address] PCP - General Internal Medicine 03/25/24 Passenger Brakeman Relationship Specialty Start Date End Date Lamont Shay MD [address] [place] [address] PCP - General Family Medicine 03/14/23 Passenger Brakeman Relationship Specialty Start Date End Date Corine Gold MD [address] [place] [address] PCP - General Internal Medicine 03/25/24 Passenger Brakeman Relationship Specialty Start Date End Date Lamont Shay MD [address] [place] [address] PCP - General Family Medicine 03/14/23 Passenger Brakeman Relationship Specialty Start Date End Date Lamont Shay MD [address] [place] [address] PCP - General Family Medicine 03/14/23 Passenger Brakeman Relationship Specialty Start Date End Date Corine Gold MD [address] [place] [address] PCP - General Internal Medicine 03/25/24 Passenger Brakeman Relationship Specialty Start Date End Date Corine Gold MD [address], [place] [address] PCP - General Internal Medicine 03/25/24 Passenger Brakeman Relationship Specialty Start Date End Date Corine Gold MD [address], [place] [address] PCP - General Internal Medicine 03/25/24 Passenger Brakeman Relationship Specialty Start Date End Date Corine Gold MD [address], [place] [address] PCP - General Internal Medicine 03/25/24 Passenger Brakeman Relationship Specialty Start Date End Date Corine Gold MD [address], [place] [address] PCP - General Internal Medicine 03/25/24 Passenger Brakeman Relationship Specialty Start Date End Date Corine Gold MD [address], [place] [address] PCP - General Internal Medicine 03/25/24 Passenger Brakeman Relationship Specialty Start Date End Date Corine Gold MD [address], [place] [address] PCP - General Internal Medicine 03/25/24 Passenger Brakeman Relationship Specialty Start Date End Date Corine Gold MD [address], [place] [address] PCP - General Internal Medicine 03/25/24 Passenger Brakeman Relationship Specialty Start Date End Date Corine Gold MD [address] [place] [address] PCP - General Internal Medicine 03/25/24 Passenger Brakeman Relationship Specialty Start Date End Date Corine Gold MD [address] [place] [address] PCP - General Internal Medicine 03/25/24 Passenger Brakeman Relationship Specialty Start Date End Date Corine Gold MD [address] [place] [address] PCP - General Internal Medicine 03/25/24 Passenger Brakeman Relationship Specialty Start Date End Date Abdifatah Brady (Historical) PCP - General 05/21/13 Passenger Brakeman Relationship Specialty Start Date End Date Corine Gold MD [address] [place] [address] PCP - General Internal Medicine 03/25/24 Passenger Brakeman Relationship Specialty Start Date End Date Corine Gold MD [address] [place] [address] PCP - General Internal Medicine 03/25/24 Passenger Brakeman Relationship Specialty Start Date End Date Unallocated, [place] [address] PCP - General Family Medicine 04/22/24 Passenger Brakeman Relationship Specialty Start Date End Date Unallocated, [place] [address] PCP - General Family Medicine 04/22/24 Passenger Brakeman Relationship Specialty Start Date End Date Corine Gold MD [address] [place] [address] PCP - General Family Medicine 06/11/24 Passenger Brakeman Relationship Specialty Start Date End Date Corine Gold MD [address] [place] [address] PCP - General Internal Medicine 03/25/24 Passenger Brakeman Relationship Specialty Start Date End Date Corine Gold MD [address] [place] [address] PCP - General Family Medicine 06/11/24 Passenger Brakeman Relationship Specialty Start Date End Date Abdifatah Brady (Historical) PCP - General 05/21/13 Passenger Brakeman Relationship Specialty Start Date End Date Abdifatah [...] doses, Starting on Mon04/13/23 at 0819, Until Meg 04/13/23 at 1315, [...] BE BASED ON THE PRIMARY CLINICAL RECORDS. [facility] [employer] [facility]. provides no warranty or guarantee of the accuracy or completeness of information in this document.
--- NOTE | 2024-09-09 00:34 | ED.GENADUL1 ---
HPI HPI - General Adult General Chief complaint: Headache Stated complaint: HEADACHE Time Seen by Provider: 09/09/24 00:07 Source: patient Mode of arrival: walk-in Limitations: no limitations History of Present Illness HPI narrative: cc - headache/migraine Patient with longstanding history of chronic migraines for which she sees a neurologist through the [facility] and frequently comes to our emergency department as well as other emergency departments for evaluation and treatment. She states that her headache returned 2 days ago after swimming. She has applied a scopolamine patch and been taking oral Toradol and oral dissolvable Zofran without any improvement. She also told me that she has been throwing up nonstop for the last 36 hours . She denied any nasal congestion, runny nose, sore throat, ear pain or cough. No injury to the head or neck. She told me that she was feeling some dizziness. Related Data Home Medications �Medication �Instructions �Recorded �Confirmed diazepam 10 mg tablet 5 mg PO QID PRN seizures 07/20/22 09/09/24 epinephrine 0.3 mg/0.3 mL 0.3 mg IM Q10M PRN anaphylaxis 07/20/22 09/09/24 injection, auto-injector diphenhydramine HCl 25 mg capsule 75 mg PO Q6H PRN migraine headache 01/26/23 09/09/24 (Benadryl) albuterol sulfate 90 mcg/actuation 2 puff inhalation Q4H PRN 08/16/23 08/16/24 aerosol inhaler shortness of breath or wheezing magnesium oxide 400 mg (241.3 mg 400 mg PO .qhs 08/16/23 09/09/24 magnesium) tablet zolmitriptan 5 mg nasal spray 1 spray intranasal Q2H PRN headache 08/16/23 09/09/24 amitriptyline 100 mg tablet 50 mg PO DAILY 07/26/24 09/09/24 Allergies Allergy/AdvReac Type Severity Reaction Status Date / Time dihydroergotamine Allergy Unknown Hives Verified 09/09/24 00:11 vortioxetine Allergy Unknown Hives Verified 09/09/24 00:11 buspirone Allergy Hives Verified 09/09/24 00:11 carbamazepine Allergy Unknown Verified 09/09/24 00:11 levetiracetam (From Keppra) Allergy ITCHING Verified 09/09/24 00:11 azithromycin (From Zithromax) AdvReac Intermediate Hives Verified 09/09/24 00:11 bee venom protein (honey bee) AdvReac Intermediate Hives Verified 09/09/24 00:11 metoclopramide (From Reglan) AdvReac Intermediate panic Verified 09/09/24 00:11 adhesive tape AdvReac Mild Rash Verified 09/09/24 00:11 cephalexin (From Keflex) AdvReac Mild Hives Verified 09/09/24 00:11 dextromethorphan (From AdvReac Mild Unknown Verified 09/09/24 00:11 [place] DM) pyrilamine (From [place] DM) AdvReac Mild Unknown Verified 09/09/24 00:11 prochlorperazine (From AdvReac Anxiety Verified 09/09/24 00:11 Compazine) propranolol AdvReac Hives Verified 09/09/24 00:11 Opioid HPI Opioid Management Most Recent Opioid Data: Last Pain Scale 10 Today, 00:20 Last ED Pain Assessment Today, 00:20 Last ORT Total Score 0 08/16/23, 14:51 Last ORT Risk Category Low Risk 08/16/23, 14:51 Ur Phencyclidine Scrn, (NEGATIVE) Negative 08/16/23, 15:15 PFSH PFSH Medical History (Updated 09/09/24 @ 00:41 by Manpreet Hensley) Chronic pain disorder �G89.4 - Chronic pain syndrome (ICD-10) Migraine �G43.909 - Migraine, unspecified, not intractable, without status migrainosus (ICD-10) Seizure disorder �G40.909 - Epilepsy, unspecified, not intractable, without status epilepticus (ICD-10) Bipolar disorder �F31.9 - Bipolar disorder, unspecified (ICD-10) Pelvic pain �R10.2 - Pelvic and perineal pain (ICD-10) Bilateral occipital neuralgia �M54.81 - Occipital neuralgia (ICD-10) Combative behavior �R46.89 - Other symptoms and signs involving appearance and behavior (ICD-10) PCOS (polycystic ovarian syndrome) �E28.2 - Polycystic ovarian syndrome (ICD-10) Mitral valve prolapse �I34.1 - Nonrheumatic mitral (valve) prolapse (ICD-10) GERD (gastroesophageal reflux disease) �K21.9 - Gastro-esophageal reflux disease without esophagitis (ICD-10) Depression �F32.A - Depression, unspecified (ICD-10) Blood in urine �R31.9 - Hematuria, unspecified (ICD-10) Acne �L70.9 - Acne, unspecified (ICD-10) Dyspareunia Brain mass �G93.89 - Other specified disorders of brain (ICD-10) Kidney stones �N20.0 - Calculus of kidney (ICD-10) COVID-19 �U07.1 - COVID-19 (ICD-10) Bronchitis �J40 - Bronchitis, not specified as acute or chronic (ICD-10) Asthma �J45.909 - Unspecified asthma, uncomplicated (ICD-10) Stress incontinence �N39.3 - Stress incontinence (female) (male) (ICD-10) Dysuria �R30.0 - Dysuria (ICD-10) Anxiety �F41.9 - Anxiety disorder, unspecified (ICD-10) Surgical History H/O laparoscopy (07/21/22) �Z98.890 - Other specified postprocedural states (ICD-10) S/P RAVI-BSO �Z90.710 - Acquired absence of both cervix and uterus (ICD-10) �Z90.722 - Acquired absence of ovaries, bilateral (ICD-10) �Z90.79 - Acquired absence of other genital organ(s) (ICD-10) Hx laparoscopic cholecystectomy �Z90.49 - Acquired absence of other specified parts of digestive tract (ICD-10) H/O: �Z98.891 - History of uterine scar from previous surgery (ICD-10) History of appendectomy �Z90.49 - Acquired absence of other specified parts of digestive tract (ICD-10) Family History Other Acid reflux Acute renal disease Afib Chromosomal disorder Delayed developmental milestones Diabetes Family history of hypertension High cholesterol Neuro-irritability due to autonomic dysfunction 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 afebrile General: Well-appearing and in no apparent distress. Skin: Warm, dry, no pallor noted. Head: Normocephalic, atraumatic. Neck: Supple, no meningismus. Eye: Pupils are equal, round and EOMI. No scleral icterus. Both eyes are bloodshot Ears, Nose, Mouth, and Throat: TM are clear, no posterior oropharynx erythema or nasal mucosal hypertrophy, uvula is mid-line. Scopolamine patch behind left ear. Oral mucosa is slightly dry Cardiovascular: Borderline tachycardic. Respiratory: No accessory muscle use or respiratory distress. Lungs are clear to auscultation, no wheezing, rales or rhonchi Musculoskeletal: normal ROM. GI: Abdomen is soft, non-distended. Normal bowel sounds. No tenderness to palpation. No rebound, guarding, or rigidity noted. Neurological: A&O x4. No cranial nerve dysfunction observed but her speech seems slightly off almost as if she is intoxicated or under the influence of some other substance. No truncal ataxia but she has a little slow to sit up. Moves all extremities. Sensation intact. Psychiatric: Cooperative and interactive. Depressed mood and flat affect. Constitutional Vital Signs, click to edit/add: Last Vital Signs Temp 97.4 F L 09/09/24 00:06 Pulse 102 H 09/09/24 00:06 Resp 18 09/09/24 00:06 BP 113/84 09/09/24 00:06 Pulse Ox 98 09/09/24 00:06 O2 Del Method Room Air 09/09/24 00:06 Course Vital Signs Vital signs: Vital Signs Temperature 97.4 F L 09/09/24 00:06 Pulse Rate 102 H 09/09/24 00:06 Respiratory Rate 18 09/09/24 00:06 Blood Pressure 113/84 09/09/24 00:06 Pulse Oximetry 98 09/09/24 00:06 Oxygen Delivery Method Room Air 09/09/24 00:06 Temperature 97.4 F L 09/09/24 00:06 Pulse Rate 102 H 09/09/24 00:06 Respiratory Rate 18 09/09/24 00:06 Blood Pressure 113/84 09/09/24 00:06 Pulse Oximetry 98 09/09/24 00:06 Oxygen Delivery Method Room Air 09/09/24 00:06 Medical Decision Making MDM Narrative Medical decision making narrative: Patient presents with acute exacerbation of chronic migraine condition. On this visit she appears to be under the influence of something with bloodshot eyes and speech that is a bit slower than normal. Neurologically she does not have any functional deficit and the location of the headache, its slow onset since Monday, its radiation and associated symptoms are all typical of her prior migraine. Despite her speech change I do not believe that she has suffered an acute intracranial emergency. She denies taking any illicit substances. I offered to give this patient IM and oral medications including sublingual Zofran and IM Phenergan to help control her nausea but she asked that we attempt an IV first. She oftentimes is a difficult patient to place a peripheral IV in due to numerous peripheral venipuncture attempts over the years. Peripheral IV was established and the patient received IV Solu-medrol, IV Benadryl, IV Zofran and 25mg Phenergan was placed inside of 1L NS IVF, which was also given. After she received her meds, she was discharged home with recommendation to go to [facility] to see her neurologist if her symptoms persist or worsen. Discharge Plan Discharge Chief Complaint: Headache Clinical Impression: Migraine headache Patient Disposition: Home, Self-Care Time of Disposition Decision: 01:25 Prescriptions / Home Meds: No Action diazepam 10 mg tablet 5 mg PO QID PRN (Reason: seizures) epinephrine 0.3 mg/0.3 mL auto-injector 0.3 mg IM Q10M PRN (Reason: anaphylaxis) Rx Instructions: for 2 doses albuterol sulfate 90 mcg/actuation HFA aerosol inhaler 2 puff INHALATION Q4H PRN (Reason: shortness of breath or wheezing) magnesium oxide 400 mg (241.3 mg magnesium) tablet 400 mg PO .qhs zolmitriptan 5 mg spray,non-aerosol 1 spray INTRANASAL Q2H PRN (Reason: headache) Rx Instructions: May repeat once if needed after =2 hours diphenhydramine HCl [Benadryl] 25 mg capsule 75 mg PO Q6H PRN (Reason: migraine headache) amitriptyline 100 mg tablet 50 mg PO DAILY Print Language: Indonesian Instructions: Migraine Headache (ED) Additional Instructions: all your [facility] neurologist at 9am tomorrow (09/09/24) and if headache is not resolved, go to [facility] for further evaluation Referrals: Corine Gold ND [Primary Care Provider] - 1 week
[2024-09-09] MEDS: DIPHENHYDRAMINE HCL 50 MG/ML VIAL 25 MG IVP (01:15)
[2024-09-09] MEDS: METHYLPREDNISOLONE SOD SUCC PF 125 MG/2 ML VIAL IVP (01:15)
[2024-09-09] MEDS: 0.9 % SODIUM CHLORIDE 1,000 ML 1000 ML IV (01:15)
[2024-09-09] MEDS: PROMETHAZINE HCL 25 MG in 0.9 % SODIUM CHLORIDE 50 ML 204 MG IV (01:16)
== END 2024-09-09 02:24 | disposition home or self-care (01) ==
PROVIDERS: Emergency Provider Emergency Medicine; PCP Student in an Organized Health Care Education/Training Program
DX: G43.909 Migraine, unspecified, not intractable, without status migrainosus (principal); Z90.710 Acquired absence of both cervix and uterus; Z90.722 Acquired absence of ovaries, bilateral; Z90.79 Acquired absence of other genital organ(s); Z90.49 Acquired absence of other specified parts of digestive tract
CPT/HCPCS: 96365; 96375; 99284; J1200; J2405; J2550; J2919

== ENCOUNTER 2024-09-23 20:20 | Emergency (ER) | payer OTHER, SELFPAY ==
--- OUTSIDE RECORDS SUMMARY | 2023-07-05 05:30 | XMS_ITS ---
Author Organization The [facility] in [place] Address [address] [place] [address] Care Team Providers Care Nut Chopper Name Role Phone Johnnie MORENO, Lamont Primary Care Provider Unavailab Heraclio Gallegos Unavailable [phone] REASON FOR VISIT 1MO-ASTHMA Encounters Encounter Location Date Provider Diagnosis Pulmonary Medicine [address] [address] 07/05/2023 Heraclio Jason Plan Of Treatment No Information Progress Notes * Coni NICHOLSON LDOB:[birth year] (28 yo F)Acc No.[id number]:07/05/2023 UNLOCKED PROGRESS NOTE Follow Up Patient: Coni FRAGA Provider: Michael Jason DO :1995 A ge:27 Y S ex:Female Date:07/05/2023 Address:[address] [place], [place] [id number] Pcp:Lamont Blair MD Subjective: * Chief Complaints: * 1 . 1MO-ASTHMA. * Medical History: Objective: * Vitals: Assessment: Plan: * Treatment: * * Electronic signature of Alicia Jason DO on 09/23/2024 at 08:54 PM EDT Sign off status: Pending Visit Status: N /S N/C (No Show/No Charge) * Provider: Michael Jason DO Date: 0 07/05/2023 Generated for Flynn enriquez/Elizabeth/Guillermo on: 0 09/23/2024 08:54 PM EDT
--- OUTSIDE RECORDS SUMMARY | 2023-07-05 07:05 | XMS_ITS ---
Author Organization The [facility] in [place] Address [address] [place] [address] Care Team Providers Care Automation Consultant Name Role Phone Lamont Blair MD Primary Care Provider Heraclio Savage Unavailable [phone] REASON FOR VISIT No-show appt Encounters Encounter Location Date Provider Diagnosis Pulmonary Medicine [place] [address] [place] [address] 07/05/2023 Heraclio Jason Plan Of Treatment No Information Progress Notes * Coni NICHOLSON LDOB:[birth year] (27 yo F)Acc No.[id number]:07/05/2023 Patient: Coni FRAGA :1995 A ge:27 Y S ex:Female Address:[address] [place] [address] * true * Date: Generated for Printi ng/Faadrianag/eTransmitting on: 0 09/23/2024 08:54 PM EDT
--- OUTSIDE RECORDS SUMMARY | 2024-03-19 08:01 | XMS_ITS ---
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 Name Role Phone Lamont Blair MD Primary Care Provider Heraclio Savage Unavailable [phone] REASON FOR VISIT Pulmonary Clearance Encounters Encounter Location Date Provider Diagnosis Pulmonary Medicine [place] [address] [place] [address] 03/19/2024 Heraclio Jason Plan Of Treatment No Information Progress Notes * Coni NICHOLSON LDOB:[birth year] (28 yo F)Acc No.[id number]:03/19/2024 Patient: Coni FARGA :1995 A ge:28 Y S ex:Female Address:[address] [place] [address] [place] [address] * true * Date: Generated for Printi mina/[email or web address]/eTransmitting on: 0 09/23/2024 08:53 PM EDT
[2024-09-23] VITALS (24 sets, daily range): BP systolic 102–136; BP diastolic 56–89; PULSE 91–104; TEMP 36.9; O2SAT 89–98; BMI 47.2
--- NOTE | 2024-09-23 20:43 | ECG_ITS ---
The [facility] Test Date: 2024-09-23 Pat Name: MARGARET PLATT Department: Room: - Gender: Female Last Repairer: : 1995 Requested By: [id number] Order Number: [id number] Reading MD: NUVIA ESTRADA M.D. Measurements Intervals [place] Rate: 92 P: 48 DE: 148 QRS: 77 QRSD: 78 T: 49 QT: 348 QTc: 398 Interpretive Statements 1100 Sinus rhythm 9110 normal ECG Compared to ECG 08/14/2023 23:20:41 No significant changes Electronically Signed On 09-25-2024 6:48:19 EDT by NUVIA ESTRADA M.D.
--- NOTE | 2024-09-23 20:43 | CT_ITS ---
The [address] [address] Patient Name: MARGARET PLATT MRN: [id number] date: 1995 Sex: F Assigned Patient Location: ED.MAIN Current Patient Location: ED.MAIN Accession/Order Number: [id number] Exam Date: 09/23/2024 23:30 Report Date: 09/23/2024 23:33 At the request of: SUKHDEEP DOCKERY MD Procedure: CT head/brain wo con CT BRAIN WITHOUT CONTRAST: CLINICAL HISTORY: Headache, seizure COMPARISON: 08/16/2023 TECHNIQUE: Contiguous axial unenhanced images were obtained through the brain. This CT exam was performed using one or more following dose reduction techniques: Automated exposure control, adjustment of the mA and/or kV according to patient size, or use of iterative reconstruction technique. FINDINGS: There is no evidence of midline shift, intra or extra-axial fluid collection, hemorrhage or CT evidence of acute large vascular distribution stroke Visualized intraorbital contents appear unremarkable. Moderate right frontal sinus disease with air fluid level. Polypoid changes right anterolateral sphenoid sinus. Mastoids are clear. No calvarial fracture CT/CT head/brain wo con IMPRESSION: NO ACUTE INTRACRANIAL ABNORMALITY. RIGHT FRONTAL SINUS DISEASE WITH AIR-FLUID LEVEL CAN BE SEEN WITH ACUTE BACTERIAL SINUSITIS. Impression dictated by: Edwin Bentley M.D. 09/23/2024 11:33 PM Dictation Location: [place] [address] Electronically authenticated by: [id number] Y Date: 09/23/2024 23:33
--- NOTE | 2024-09-23 20:45 | ED_ITS ---
HPI HPI - General Adult General Chief complaint: Seizure Stated complaint: SEIZURES AND MIGRAINES Time Seen by Provider: 09/23/24 20:35 Source: patient Mode of arrival: Wheelchair Limitations: no limitations History of Present Illness HPI narrative: 28-year-old female presents for headache and seizure. Her mother gives most of the history. Her mother states that last night the patient had a seizure and then had another 1 in the car awake this afternoon and then 2 more tonight. Her mother explains that it all started with a bad headache. The patient has a long history of headaches and gets infusions in [place]. There is no known definite trauma and no history of fever. Related Data Home Medications ?Medication ?Instructions ?Recorded ?Confirmed diazepam 10 mg tablet 5 mg PO QID PRN seizures 09/09/24 epinephrine 0.3 mg/0.3 mL 0.3 mg IM Q10M PRN anaphylax is 07/20/22 09/09/24 injection, auto-injector diphenhydramine HCl 25 mg capsule 75 mg PO Q6H PRN sweta giovany headache 01/26/23 09/09/24 (Benadryl) albuterol sulfate 90 mcg/actuation 2 puff inhalation Q 4H PRN 08/16/23 08/16/24 aerosol inhaler shortness of breath or wheez ing magnesium oxide 400 mg (241.3 mg 400 mg PO .qhs 09/09/24 magnesium) tablet zolmitriptan 5 mg nasal spray 1 spray intranasal Q2H P RN headache 08/16/23 09/09/24 amitriptyline 100 mg tablet 50 mg PO DAILY 07/26/24 Previous Rx's ?Medication ?Instructions ?Recorded amoxicillin 500 mg capsule 500 mg PO TID 10 days #30 c aps 09/24/24 Allergies Allergy/AdvReac Type Severity Reaction Status Date / Time dihydroergotamine Allergy Unknown Hives Verified 09/23/24 20:33 vortioxetine Allergy Unknown Hives Verified 09/23/24 20:33 buspirone Allergy Hives Verified 09/23/24 20:33 carbamazepine Allergy Unknown Verified 09/23/24 20:33 levetiracetam (From Keppra) Allergy ITCHING Verified 09/23/24 20:33 azithromycin (From Zithromax) AdvReac Intermediate Hives Verified 09/23/24 20:33 bee venom protein (honey bee) AdvReac Intermediate Hives Verified 09/23/24 20:33 metoclopramide (From Reglan) AdvReac Intermediate panic Verified 09/23/24 20:33 adhesive tape AdvReac Mild Rash Verified 09/23/24 20:33 cephalexin (From Keflex) AdvReac Mild Hives Verified 09/23/24 20:33 dextromethorphan (From AdvReac Mild Unknown Verified 09/23/24 20:33 Kennett DM) pyrilamine (From Kennett DM) AdvReac Mild Unknown Verified 09/23/24 20:33 prochlorperazine (From AdvReac Anxiety Verified 09/23/24 20:33 Compazine) propranolol AdvReac Hives Verified 09/23/24 20:33 Opioid HPI Opioid Management Most Recent Opioid Data: Last Pain Scale 0 09/09/24, 02:23 Last ORT Total Score 0 08/16/23, 14:51 Last ORT Risk Category Low Risk 08/16/23, 14:51 Ur Phencyclidine Scrn, (NEGATIVE) Negative , 15:15 Review of Systems ROS Narrative A ten point review of systems is negative except as noted above. [facility] Medical History (Updated 09/24/24 @ 00:09 by Wild Kendall MD) Chronic pain disorder ?G89.4 - Chronic pain syndrome (ICD-10) Migraine ?G43.909 - Migraine, unspecified, not intractable, without status migrainosus (ICD-10) Seizure disorder ?G40.909 - Epilepsy, unspecified, not intractable, without status epilepticus (ICD-10) Bipolar disorder ?F31.9 - Bipolar disorder, unspecified (ICD-10) Pelvic pain ?R10.2 - Pelvic and perineal pain (ICD-10) Bilateral occipital neuralgia ?M54.81 - Occipital neuralgia (ICD-10) Combative behavior ?R46.89 - Other symptoms and signs involving appearance and behavior (ICD-10) PCOS (polycystic ovarian syndrome) ?E28.2 - Polycystic ovarian syndrome (ICD-10) Mitral valve prolapse ?I34.1 - Nonrheumatic mitral (valve) prolapse (ICD-10) GERD (gastroesophageal reflux disease) ?K21.9 - Gastro-esophageal reflux disease without esophagitis (ICD-10) Depression ?F32.A - Depression, unspecified (ICD-10) Blood in urine ?R31.9 - Hematuria, unspecified (ICD-10) Acne ?L70.9 - Acne, unspecified (ICD-10) Dyspareunia Brain mass ?G93.89 - Other specified disorders of brain (ICD-10) Kidney stones ?N20.0 - Calculus of kidney (ICD-10) COVID-19 ?U07.1 - COVID-19 (ICD-10) Bronchitis ?J40 - Bronchitis, not specified as acute or chronic (ICD-10) Asthma ?J45.909 - Unspecified asthma, uncomplicated (ICD-10) Stress incontinence ?N39.3 - Stress incontinence (female) (male) (ICD-10) Dysuria ?R30.0 - Dysuria (ICD-10) Anxiety ?F41.9 - Anxiety disorder, unspecified (ICD-10) Surgical History H/O laparoscopy (07/21/22) ?Z98.890 - Other specified postprocedural states (ICD-10) S/P RAVI-BSO ?Z90.710 - Acquired absence of both cervix and uterus (ICD-10) ?Z90.722 - Acquired absence of ovaries, bilateral (ICD-10) ?Z90.79 - Acquired absence of other genital organ(s) (ICD-10) Hx laparoscopic cholecystectomy ?Z90.49 - Acquired absence of other specified parts of digestive tract (ICD- 10) H/O: ?Z98.891 - History of uterine scar from previous surgery (ICD-10) History of appendectomy ?Z90.49 - Acquired absence of other specified parts of digestive tract (ICD- 10) Family History Other Acid reflux Acute renal disease Afib Chromosomal disorder Delayed developmental milestones Diabetes Family history of hypertension High cholesterol Neuro-irritability due to autonomic dysfunction 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 General: The patient appears well and in no apparent distress. Patient is resting comfortably on cart. Skin: Warm, dry, no pallor noted. There is no rash noted. Head: Normocephalic, atraumatic; no nuchal rigidity Eye: Normal conjunctiva, no drainage, EOMI. PERRL Ears, Nose, Mouth, and Throat: oral mucosa is moist. Nares patent. Cardiovascular: Regular Rate and Rhythm Respiratory: Patient is in no distress, no accessory muscle use, lungs are clear to auscultation, no wheezing, rales or rhonchi Back: non-tender GI: Soft and nontender Musculoskeletal: The patient has no evidence of calf tenderness, no pitting edema, symmetrical pulses noted bilaterally Neurological: Drowsy. Allows her mother to answer most questions. Moves all 4 extremities Psychiatric: Cooperative Constitutional Vital Signs, click to edit/add: Last Vital Signs Temp 98.4 F 09/23/24 20:33 Pulse 98 H 09/23/24 23:40 Resp 14 09/23/24 23:40 BP 119/67 09/23/24 23:30 Pulse Ox 95 09/23/24 23:40 O2 Del Method Room Air 09/23/24 20:33 Course Vital Signs Vital signs: Vital Signs Pulse Oximetry 89 L 09/23/24 20:32 Temperature 98.4 F 09/23/24 20:33 Pulse Rate 98 H 09/23/24 23:40 Respiratory Rate 14 09/23/24 23:40 Blood Pressure 119/67 09/23/24 23:30 Pulse Oximetry 95 09/23/24 23:40 Oxygen Delivery Method Room Air 09/23/24 20:33 Medical Decision Making MDM Narrative Medical decision making narrative: The patient is feeling improved with the medications given, Toradol, Benadryl, and Solu-Medrol. CT scan shows frontal sinusitis and she is prescribed amoxicillin and was started on that here. She is able to be discharged home. Treatment diagnosis and follow-up were discussed with the patient and her family. Differential Diagnosis Differential Diagnosis: Intracranial hemorrhage, migraine headache, sinusitis Lab Data Lab results reviewed: Yes I reviewed the patient's lab results Labs: Lab Results 09/23/24 Range/Units 21:15 WBC 4.9 (4.0-11.0) 10^3/uL RBC 4.04 L (4.20-5.40) 10^6/uL Hgb 11.8 L (12.0-16.0) g/dL Hct 34.6 L (36.0-48.0) % MCV 85.6 (81.0-99.0) fL MCH 29.2 (26.7-34.0) pg MCHC 34.1 (29.9-35.2) g/dL RDW 13.3 (11.0-15.0) % Plt Count 230 (150-450) 10^3/uL MPV 9.4 L (9.5-13.5) fL Neut % (Auto) 56.7 (43.0-75.0) % Lymph % (Auto) 27.9 (20.5-60.0) % Sheridan % (Auto) 7.5 (1.7-12.0) % Eos % (Auto) 6.5 (0.9-7.0) % Baso % (Auto) 0.6 (0.2-2.0) % Neut # (Auto) 2.8 (1.4-6.5) 10^3/uL Lymph # (Auto) 1.4 (1.2-3.8) 10^3/uL Sheridan # (Auto) 0.4 (0.3-0.8) 10^3/uL Eos # (Auto) 0.3 (0.0-0.7) 10^3/uL Baso # (Auto) 0.0 (0.0-0.1) 10^3/uL Abs Immat Gran (auto) 0.04 H (0.00-0.03) 10^3/uL Imm/Tot Granulo (auto) 0.8 H (0.0-0.5) % Sodium 140 (136-145) mmol/L Potassium 3.9 (3.5-5.1) mmol/L Chloride 105 (98-107) mmol/L Carbon Dioxide 26.6 (21.0-32.0) mmol/L Anion Gap 12.3 BUN 18.0 (7.0-18.0) mg/dL Creatinine 0.69 (0.55-1.02) mg/dL Est GFR ( Amer) >60 (>=60 mL/min/1.73m^2) Est GFR (Non-Af Amer) >60 (>=60 mL/min/1.73m^2) BUN/Creatinine Ratio 26.1 Glucose 110 H (74-106) mg/dL Calcium 8.5 (8.5-10.1) mg/dL Imaging Data CT scan - head: Radiologist's impression: ITS Impressions Head CT 09/23/24 20:43 IMPRESSION: NO ACUTE INTRACRANIAL ABNORMALITY. RIGHT FRONTAL SINUS DISEASE WITH AIR-FLUID LEVEL CAN BE SEEN WITH ACUTE BACTERIAL SINUSITIS. Impression dictated by: Edwin Bentley M.D. 09/23/2024 11:33 PM Dictation Location: [employer]ol[employer] Electronically authenticated by: [id number] Y Date: 09/23/2024 23:33 ECG Data Attestation: I personally reviewed and interpreted this ECG as follows: ([id number], on my interpretation shows sinus rhythm with rate of 92 and no acute change) Discharge Plan Discharge Chief Complaint: Seizure Clinical Impression: Acute frontal sinusitis Patient Disposition: Home, Self-Care Time of Disposition Decision: 00:09 Condition: Good Mode of Transportation: Private Vehicle Prescriptions / Home Meds: New amoxicillin 500 mg capsule 500 mg PO TID 10 Days Qty: 30 0RF No Action diazepam 10 mg tablet 5 mg PO QID PRN (Reason: seizures) epinephrine 0.3 mg/0.3 mL auto-injector 0.3 mg IM Q10M PRN (Reason: anaphylaxis) Rx Instructions: for 2 doses albuterol sulfate 90 mcg/actuation HFA aerosol inhaler 2 puff INHALATION Q4H PRN (Reason: shortness of breath or wheezing) magnesium oxide 400 mg (241.3 mg magnesium) tablet 400 mg PO .qhs zolmitriptan 5 mg spray,non-aerosol 1 spray INTRANASAL Q2H PRN (Reason: headache) Rx Instructions: May repeat once if needed after =2 hours diphenhydramine HCl [Benadryl] 25 mg capsule 75 mg PO Q6H PRN (Reason: migraine headache) amitriptyline 100 mg tablet 50 mg PO DAILY Print Language: Luxembourgish Instructions: Sinusitis (ED) Referrals: Corine Gold ND [Primary Care Provider] - 1 week
--- OUTSIDE RECORDS SUMMARY | 2024-09-23 20:53 | XMS_ITS | Clinical Summary ---
Author Organization [facility] Address [address] [place] [address] Care Team Providers Care Cashier Receptionist Name Role Phone Abdifatah Brady (Historical) Primary [...] (ZOMIG) 5 mg nasal spray Use 1 [place] in the nose as needed at onset [...] Encounters Date Type Department Care Team Description 09/23/2024 Travel 09/02/2024 Orders Only Neurology Headache [facility] [address] [place] [address] Sagar Barth, PROOFING MACHINE OPERATOR.GUIDE ALPINE Intractable chronic migraine without aura and without status migrainosus (Primary Dx) 08/30/2024 Orders Only Neurology Headache [facility] [address] [place] [address] Sagar Barth, PROOFING MACHINE OPERATOR.GUIDE ALPINE 08/16/2024 Get Medical Advice Neurology Headache [facility] [address] [address] Sagar Barth, PROOFING MACHINE OPERATOR.GUIDE ALPINE Infusion 08/15/2024 Get Medical Advice Neurology [address] [place] [address] Griffin Lepe PA-C Heads pounding 08/05/2024 Telephone [facility] Home Delivery [address] [place] [address] Rhiannon Bobo Insurance Authorization (Zavzpret 10MG/ACT solution); Zavzpret 10MG/ACT solution 08/02/2024 11:00 AM EDT Office Visit Neurology [address] [place] [address] Griffin Lepe PA-C Intractable chronic migraine without aura and with status migrainosus (Primary Dx); Status migrainosus 08/02/2024 10:00 AM EDT [facility] Neurology [address] [place] [address] Chronic migraine without aura, with intractable migraine, so stated, with status migrainosus (Primary Dx); Intractable chronic migraine without aura and with status migrainosus 08/01/2024 11:00 AM EDT [facility] Neurology [address] [place] [address] Intractable chronic migraine without aura and without status migrainosus (Primary Dx) 07/05/2024 Telephone Neurology [address] [place] [address] Griffin Lepe PA-C Infusion (Headache infusion scheduling) 07/04/2024 11:00 AM EDT [facility] Neurology [address] [place] [address] Griffin Lepe PA-C Status migrainosus (Primary Dx); Intractable chronic migraine without aura and without status migrainosus; Generalized anxiety disorder; Chronic migraine without aura, with intractable migraine, so stated, with status migrainosus; Intractable chronic migraine without aura and with status migrainosus 07/04/2024 Travel from Last 3 Months Social History Tobacco Use Types Packs/Day Years Used Date Smoking Tobacco: Never Smokeless Tobacco: Never Tobacco Cessation:Counseling Given: Not Answered PHQ-2 Answer Date Recorded PHQ-2 score 2 09/23/2024 Area Deprivation Index Answer Date Zi rded National Score (1-100), lower number is lower ri sk 94 06/23/2022 State Score (1-10), lower number is lower risk 9 06/23/2022 Data from: https://www.neighborhoodatlas.medicine.[facility]/. Last address used for calculation [address] 06/23/2022 Comments No Sex and [...] Upcoming Encounters Date Type Department Care Team (Latest Contact Info) Description 09/24/2024 10:00 AM EDT [facility] Neurology [address] [place] [address] Griffin Lepe PA-C [address] [place] [address] Head ache control 10/25/2024 1:30 PM EDT Infusion Center Neurology [address] [place] [address] Vyepti 12/04/2024 3:20 PM EDT Office Visit Neurology [address] [place] [id number] Tyrone Dolan MD, PhD [address] [facility] [address] [place] [address] Headache/ concerns about pots syndrome Health Maintenance Due Date Last Done Comments Anxiety Screening 11/13/2013 Depression Screening 11/13/2013 HIV Screening 11/13/2013 Hepatitis C Screening 11/13/2013 Cervical Cancer Screening 11/13/2016 Influenza Vaccine (#1) 2024 8, 12/31/2015, 11/27/2014, Additional history exists DTaP,Tdap,Td Vaccine (8 - Td or Tdap) 09/20/2025 09/21/2015, 10/24/2013, 09/07/2001, Additional history exists Hepatitis B Vaccine Completed 10/25/2002, 05/06/1996, 1995, Additional history exists Insurance [facility] MEDICAID MEDICAID Care Teams Cashier Receptionist Relationship Specialty Start Date End Date Abidfatah Brady (Historical) PCP - General 05/21/13
--- OUTSIDE RECORDS SUMMARY | 2024-09-23 20:53 | XMS_ITS | Encounter Summary ---
Author Organization [facility] Address [address] [place] [address] Care Team Providers Care Foam Charger Name Role Phone Lamont Blair MD Primary Care Provider [phone] Unallocated, Noms Provider Primary Care Provi mahsa Lamont Blair MD Unavailable Encounter Details Date Type Department Care Team (Late st Contact Info) Description 08/15/2023 Orders Only [facility] [address] [place] [address] Lamont Blair MD [address] [place] [address] Social History Tobacco Use Types Packs/Day Years Used Date Smoking Tobacco: Never Smokeless Tobacco: Never Alcohol Use Standard Drinks/Week Comments Never 0 (1 standard drink = 0.6 oz pure alcohol) Caffeine intake: >4 cups per day PHQ-2 Answer Date Recorded Patient Health Questionnaire-2 Score 2 03/21/2023 Comments No Sex and Gender Information Value Date Recorded Sex Assigned at Not on file Legal Sex Female 7:02 PM EDT Gender Identity Not on file Sexual Orientation Not on file documented as of this encounter Plan of Treatment Upcoming Encounters Date Type Department Care Team (Late st Contact Info) Description 10/15/2024 8:10 AM EDT Office Visit [facility] DOUGLAS [address] [place] [phone] Zay Blas DO [address] [facility] [place] [address] documented as of this encounter Procedures Procedure Name Priority Date/Time Associated Diagnosis Comments ELECTROCARDIOGRAM REPORT Routine 7:52 AM EDT documented in this encounter Results * Electrocardiogram Report (08/14/2023 7:52 AM EDT) us Lamont Blair MD IN CLINIC/BEDSIDE ORDERABLES Fin al Result documented in this encounter Visit Diagnoses Not on filedocumented in this encounter Care Teams Foam Charger Relationship Specialty Start Date End Date Lamont Blair MD [address] [place] [phone] PCP - General Family Medicine 03/14/23 04/21/24 Unallocated, Noms ProviderMD [address] [place] [address] PCP - General Family Medicine 04/22/24 07/31/24 Lamont Blair MD [address] [place] [phone] PCP - [facility] 05/21/2401/19 documented as of this encounter
--- OUTSIDE RECORDS SUMMARY | 2024-09-23 20:53 | XMS_ITS | Encounter Summary ---
Author Organization [facility] Address [address] [place] [address] Care Team Providers Care Commutator V Ring Assembler Name Role Phone Lamont Blair MD Primary Care Provider [phone] Lamont Blair MD Primary Care Provider [phone] Unallocated, Noms Provider Primary Care Provi mahsa Lamont Blair MD Unavailable Encounter Details Date Type Department Care Team (Late st Contact Info) Description 07/31/2022 Abstract [facility] DOUGLAS [address] [facility] [place] [phone] Renetta Son PA [address] [facility] [address] [place], [place] [phone] Social History Tobacco Use Types Packs/Day Years Used Date Smoking Tobacco: Never Tobacco Cessation:Counseling Given: Not Answered Alcohol Use Standard Drinks/Week Comments Never 0 (1 standard drink = 0.6 oz pure alcohol) Caffeine intake: >4 cups per day Comments Unknown Sex and Gender Information Value Date Recorded Sex Assigned at Not on file Legal Sex Female 7:02 PM EDT Gender Identity Not on file Sexual Orientation Not on file documented as of this encounter Plan of Treatment Upcoming Encounters Date Type Department Care Team (Late st Contact Info) Description 10/15/2024 8:10 AM EDT Office Visit ARLEN DOUGLAS [address] [place] [phone] Zay Blas DO [address] [facility] [place] [address] documented as of this encounter Visit Diagnoses Not on filedocumented in this encounter Care Teams Commutator V Ring Assembler Relationship Specialty Start Date End Date Lamont Blair MD PCP - General Cardiology 08/01/22 03/13/23 Lamont Blair MD [address] [place] [phone] PCP - General Family Medicine 03/14/23 04/21/24 Unallocated, Noms Provider, [address] [place] [address] PCP - General Family Medicine 04/22/24 07/31/24 Lamont Blair MD [address] [place] [phone] PCP - [facility] 05/21/2401/19 documented as of this encounter
--- OUTSIDE RECORDS SUMMARY | 2024-09-23 20:53 | XMS_ITS | Encounter Summary ---
Author Organization [facility] Address [address] [place] [address] Care Team Providers Care Vehicle Painter Name Role Phone Lamont Blair MD Primary Care Provider [phone] Unallocated, Noms Provider Primary Care Provi mahsa Lamont Blair MD Unavailable Encounter Details Date Type Department Care Team (Late st Contact Info) Description 03/27/2023 Abstract [facility] [address] [place] [phone] Lamont Blair MD [address] [place] [phone] Social History Tobacco Use Types Packs/Day Years [...] 10/15/2024 8:10 AM EDT [place] [phone] Zay Blas DO [address] [facility] [place] [address] documented as of this encounter Visit Diagnoses Not on filedocumented in this encounter Care Teams Vehicle Painter Relationship Specialty Start Date End Date Lamont Blair MD [address] [place] [phone] PCP - General Family Medicine 03/14/23 04/21/24 Unallocated, N[facility] Provider, [facility] [place] [address] PCP - General Family Medicine 04/22/24 07/31/24 Lamont Blair MD [address] [place] [phone] PCP - [facility] 05/21/2401/19 documented as of this encounter
--- OUTSIDE RECORDS SUMMARY | 2024-09-23 20:53 | XMS_ITS | Encounter Summary ---
Author Organization [facility] Address [address] [place] [address] Care Team Providers Care Form Setter Helper Name Role Phone Unallocated, Noms Provider Primary Care Provi mahsa Lamont Blair MD Unavailable Encounter Details Date Type Department Care Team (Late st Contact Info) Description 07/04/2024 Abstract [facility] [address] [place] [address] Leonor Reeder MA Social History Tobacco Use Types Packs/Day Years Used Date Smoking Tobacco: Never Passive Smoke Exposure: Never Smokeless Tobacco: Never Alcohol Use Standard Drinks/Week Comments Never 0 (1 standard drink = 0.6 oz pure alcohol) Caffeine intake: >4 cups per day B1300 Health Literacy Answer Date Recor ded How often do you need to hav e someone help you when you read instructions, pamphlets, or other written material from your doctor or pharmacy? Never 01/23/2024 Social Connection and Isolat ion Panel [NHANES] Answer Date Recorded In a typical week, how many times do you talk on the phone with family, friends, or neighbors? More than three times a week 01/23/2024 How often do you get togethe r with friends or relatives? Twice a week 01/23/2024 How often do you attend caro center or restorationist services? More than 4 times per year 01/23/2024 Do you belong to any clubs o r organizations such as scientology groups, unions, fraternal or athletic groups, or school groups? Yes 01/23/2024 How often do you attend meet ings of the clubs or organizations you belong to? More than 4 times per year 01/23/2024 Are you , , di vorced, , never , or living with a partner? Living with partner 01/23/2024 AUDIT-C Answer Date Recorded Q1: How often do you have a drink containing alcohol? Never 01/23/2024 Q2: How many drinks containi ng alcohol do you have on a typical day when you are drinking? Patient does not drink Q3: How often do you have si x or more drinks on one occasion? Never 01/23/2024 Overall Financial Resource Strain (CARDIA) Answe r Date Recorded How hard is it for you to pa y for the very basics like food, housing, medical care, and heating? Not very hard 01/23/2024 PHQ-2 Answer Date Recorded Patient Health Questionnaire-2 Score 2 03/21/2023 [facility] - Occupational Stress Questionnaire Answer Date Recorded Do you feel stress - tense, restless, nervous, or anxious, or unable to sleep at night because your mind is troubled all the time - these days? Rather much 01/23/2024 Exercise Vital Sign Answer Date Recorde d On average, how many days pe r week do you engage in moderate to strenuous exercise (like a brisk walk)? 7 days 01/23/2024 On average, how many minutes do you engage in exercise at this level? 10 min 01/23/2024 Hunger Vital Sign Answer Date Recorded Within the past 12 months, y ou worried that your food would run out before you got the money to buy more. Never true 01/23/20 24 Within the past 12 months, t he food you bought just didn't last and you didn't have money to get more. Never true 01/23/2024 PRAPARE - Transportation Answer Date Re corded In the past 12 months, has l ack of transportation kept you from medical appointments or from getting medications? Patient declined 01/23/2024 In the past 12 months, has l ack of transportation kept you from meetings, work, or from getting things needed for daily living? No 01/23/2024 Housing Stability Vital Sign Answer Raf e Recorded In the last 12 months, was t here a time when you were not able to pay the mortgage or rent on time? No 01/23/2024 In the past 12 months, how m any times have you moved where you were living? 0 01/23/2024 At any time in the past 12 m ont, were you homeless or living in a retirement (including now)? No 01/23/2024 Comments No Sex and Gender Information Value Date Recorded Sex Assigned at Not on file Legal Sex Female 7:02 PM EDT Gender Identity Not on file Sexual Orientation Not on file documented as of this encounter Plan of Treatment Upcoming Encounters Date Type Department Care Team (Late st Contact Info) Description 10/15/2024 8:10 AM EDT Office Visit [facility] DOUGL[facility] [address] [place] [id number] Zay Blas DO [address] [place] [address] documented as of this encounter Visit Diagnoses Not on filedocumented in this encounter Care Teams Form Setter Helper Relationship Specialty Start Date End Date Unallocated, Arlen Davalos MD [address] [place] [address] PCP - General Family Medicine 04/22/24 07/31/24 Lamont Blair MD [address] [place] [address] PCP - [facility] 05/21/2401/19 documented as of this encounter
--- OUTSIDE RECORDS SUMMARY | 2024-09-23 20:53 | XMS_ITS | Encounter Summary ---
Author Organization [facility] Address [address] [place] [address] Care Team Providers Care Sales Property Manager Name Role Phone Abdifatah Brady (Historical) Primary Care Provide r Unavailable Source Comments In the event this information is protected by the Federal Confidentiality of Alcohol and Drug AbusePatient Records regulations: The Federal rules restrict any use of the information to criminally investigate or prosecute any alcohol or drug abuse patient.[facility] Encounter Details Date Type Department Care Team (Late st Contact Info) Description 03/23/2023 Patient Msg Neurology [address] [place], [place] [id number] Provider, [facility] Social History Tobacco Use Types Packs/Day Years Used Date Smoking Tobacco: Never Smokeless Tobacco: Never PHQ-2 Answer Date Recorded PHQ-2 score 2 03/22/2023 Area Deprivation Index Answer Date Zi rded National Score (1-100), lower number is lower ri sk 94 06/23/2022 State Score (1-10), lower number is lower risk 9 06/23/2022 Data from: https://www.neighborhoodatlas.[facility]/. Last address used for calculation [...] AM EDT [facility]rology [address] [place] [address] Griffin Lepe PA-C [address] [place] [address] Head ache control 10/25/2024 1:30 PM EDT Infusion Center Neurology [address] [place] [address] Vyepti 12/04/2024 3:20 PM EDT Office Visit Neurology [address] [place] [address] Tyrone Dolan MD, PhD [address] [facility] [address] [place] [id number] Headache/ concerns about pots syndrome documented as of this encounter Visit Diagnoses Not on filedocumented in this encounter Care Teams Sales Property Manager Relationship Specialty Start Date End Date Abdifatah Brady (Historical) PCP - General 05/21/13 documented as of this encounter
--- OUTSIDE RECORDS SUMMARY | 2024-09-23 20:53 | XMS_ITS | Encounter Summary ---
Author Organization [facility] Address [address] [place] [address] Care Team Providers Care College Specialist Name Role Phone Abdifatah Brady (Historical) Primary Care Provide r Unavailable Source Comments In the event this information is protected by the Federal Confidentiality of Alcohol and Drug AbusePatient Records regulations: The Federal rules restrict any use of the information to criminally investigate or prosecute any alcohol or drug abuse patient.[facility] Encounter Details Date Type Department Care Team (Late st Contact Info) Description 04/11/2023 Patient Msg Neurology [address] [place], [place] [phone] Provider, [facility] Appointment scheduling Social History Tobacco Use Types Packs/Day Years Used Date Smoking Tobacco: Never Smokeless Tobacco: Never PHQ-2 Answer Date Recorded PHQ-2 score 2 03/22/2023 Area Deprivation Index Answer Date Zi rded National Score (1-100), lower number is lower ri sk 94 06/23/2022 State Score (1-10), lower number is lower risk 9 06/23/2022 Data from: https://www.neighborhoodatlas.[facility]/. Last address used for calculation [address] [...] Contact Info) Description 09/24/2024 10:00 AM EDT [facility] Neurology [address] [place] [address] Griffin Lepe PA-C [address] [place] [address] Head ache control 10/25/2024 1:30 PM EDT Infusion Center Neurology [address] [place] [address] Vyepti 12/04/2024 3:20 PM EDT Office Visit Neurology [address] [place] [address] Tyrone Dolan MD, PhD [address] [facility] [address] [place] [phone] Headache/ concerns about pots syndrome documented as of this encounter Visit Diagnoses Not on filedocumented in this encounter Care Teams College Specialist Relationship Specialty Start Date End Date Abdifatah Brady (Historical) PCP - General 05/21/13 documented as of this encounter
--- OUTSIDE RECORDS SUMMARY | 2024-09-23 20:53 | XMS_ITS | Encounter Summary ---
Author Organization [facility] Address [address] [place] [address] Care Team Providers Care Adjunct Trainer Name Role Phone Lamont Blair MD Primary Care Provider [phone] Lamont Blair MD Primary Care Provider [phone] Unallocated, Noms Provider Primary Care Provi mahsa Lamont Blair MD Unavailable Encounter Details Date Type Department Care Team (Late st Contact Info) Description 03/03/2023 Orders Only [facility] [address] [place] [address] Jesse Estrada MD [address] [place] [address] Social History Tobacco Use Types Packs/Day Years Used Date Smoking Tobacco: Never Smokeless Tobacco: Never Alcohol Use Standard Drinks/Week Comments Never 0 (1 standard drink = 0.6 oz pure alcohol) Caffeine intake: >4 cups per day Comments No Sex and Gender Information Value Date Recorded Sex Assigned at Not on file Legal Sex Female 7:02 PM EDT Gender Identity Not on file Sexual Orientation Not on file documented as of this encounter Plan of Treatment Upcoming Encounters Date Type Department Care Team (Late st Contact Info) Description 10/15/2024 8:10 AM EDT Office Visit [facility] DOUGLAS [address] [place] [address] Zay Blas, [address] [place], [place] [address] [address] documented as of this encounter Procedures Procedure Name Priority Date/Time Associated Diagnosis Comments XR CHEST 1 VIEW Routine 03/03/2023 10:43 AM EST documented in this encounter Results * XR chest 1 view (03/03/2023 10:43 AM EST) Anatomical Region Laterality Modality Chest Radiographic Bianca ging us Jesse Estrada MD IMG XR PROCEDURES Final Res ult documented in this encounter Visit Diagnoses Not on filedocumented in this encounter Care Teams Adjunct Trainer Relationship Specialty Start Date End Date Lamont Blair MD PCP - General Cardiology 08/01/22 03/13/23 Lamont Blair MD [address] [place] [phone] PCP - General Family Medicine 03/14/23 04/21/24 Unallocated, Noms Provider, [place] [address] PCP - General Family Medicine 04/22/24 07/31/24 Lamont Blair MD [address] [place] [address] PCP - [facility] 05/21/2401/19 documented as of this encounter
--- OUTSIDE RECORDS SUMMARY | 2024-09-23 20:53 | XMS_ITS | Encounter Summary ---
Author Organization [facility] Address [address] [place] [address] Care Team Providers Care Radio Interference Trouble Shooter Name Role Phone Unallocated, Noms Provider Primary Care Provi mahsa Lamont Blair MD Unavailable Encounter Details Date Type Department Care Team (Late st Contact Info) Description 04/29/2024 Orders Only [facility] [address] [place] [address] Leonor Reeder MA Social History Tobacco [...] week 01/23/2024 How often do you attend [facility] or gnosticist services? More than 4 times per year 01/23/2024 Do you belong to any clubs o r organizations such as voodoo groups, unions, fraternal or athletic groups, or [...] Recorded Patient Health Questionnaire-2 Score 2 03/21/2023 [facility] - Occupational Stress [...] were you homeless or living in a halfway (including now)? No 01/23/2024 Comments No Sex [...] AM EDT Office Visit [facility] DOUGLAS [address] [place] [phone] Zay Blas DO [address] [facility] [place] [address] documented as of this encounter Procedures Procedure Name Priority Date/Time Associated Diagnosis Comments PAP SMEAR Routine 04/16/2024 12:00 AM EST documented in this encounter Results * Pap Smear (04/16/2024 12:00 AM EST) Swab Cervical swab / Unknown Zay Blas DO LAB CYTOLOGY ORDERABLES Final Re sult EXTERNAL LAB documented in this encounter Visit Diagnoses Not on filedocumented in this encounter Care Teams Radio Interference Trouble Shooter Relationship Specialty Start Date End Date Unallocated, Arlen Davalos MD [address] [place] [address] PCP - General Family Medicine 04/22/24 07/31/24 Lamont Blair MD [address] [place] [address] PCP - [facility] 05/21/2401/19 documented as of this encounter
--- OUTSIDE RECORDS SUMMARY | 2024-09-23 20:53 | XMS_ITS | Clinical Summary ---
Author Organization [facility] Address [address] [place] [address] Care Team Providers Care Medical Consultant Name Role Phone Lamont Blair MD Unavailable Allergies Active Allergy Reactions Criticality Noted Date Comments Azithromycin 08/01/2022 Bee Venom Unknown 01/24/2023 Buspirone Hives Low 08/06/2021 Carbamazepine Unknown 12/24/2020 anxiety Cephalexin Hives,Rash Low 12/08/2016 Ciprofloxacin Hives 12/12/2022 Clarithromycin GI intolerance 03/07/2023 Clindamycin Unknown 06/25/2020 Dextromethorphan Hives 12/12/2022 Dextromethorphan-Pyrilami ne Hives 01/07/2022 Dihydroergotamine GI intolerance Medium 07/27/2022 Chest tightness, numbness and tingling in bilateral extremities, increased anxiety Levetiracetam Itching 11/11/2022 Metoclopramide Hives,Unknown,Rash Low 12/08/2016 Other Hives 01/07/2022 Propranolol Hives 12/24/2020 Migrianes Vortioxetine Hives 08/06/2021 Other Reaction(s): intolerance to med Wound Dressing Adhesive Rash Medium 12/08/2016 Medications promethazine (Phenergan) 25 MG suppository Insert 25 mg into the rectum every 6 (six) hours if needed for nausea or vomiting Active Acetaminophen Extra Strength 500 MG tablet Take 500 mg by mouth every 6 (six) hours if needed (pain) 02/06/2 025 Active albuterol (2.5 MG/3ML) 0.083% nebulizer solution Inhale 2.5 mg 4 (four) times a day as needed 025 Active albuterol HFA 90 mcg/act inhaler Inhale 2 puffs every 4 (four) hours if needed 025 Active amitriptyline (Elavil) 100 MG tablet Take 100 mg by mouth at bedtime 025 Active baclofen (Lioresal) 10 MG tablet Take 10 mg by mouth at bedtime Active chlorzoxazone (Parafon Forte) 500 MG tablet Take 500 mg by mouth 2 (two) times a day as needed for muscle spasms 025 Active diazePAM (Valium) 10 MG tablet Take 10 mg by mouth 1 (one) time each day at the same time Active fluticasone (Flonase) 50 MCG/ACT nasal spray Administer 1 spray into each nostril Daily 025 Active ibuprofen 800 MG tablet Take 800 mg by mouth every 6 (six) hours if needed for moderate pain 025 Active ketoconazole (NIZOral) 2 % shampoo Apply 1 Application topically 2 (two) times a week 025 Active ketorolac (Toradol) 10 MG tablet Take 10 mg by mouth every 8 (eight) hours if needed for mild pain 025 Active loratadine (Claritin) 10 MG tablet Take 10 mg by mouth Daily as needed 025 Active omeprazole (PriLOSEC) [address] capsule Take 40 mg by mouth Daily 025 Active ondansetron ODT (Zofran-ODT) 4 MG disintegrating tablet Take 4 mg by mouth every 6 (six) hours if needed for nausea Active scopolamine (Transderm-Scop) 1 mg/72 hr patch [address] 1 patch on the skin every 3rd (third) day Active Ubrelvy 100 MG tablet Take 100 mg by mouth if needed (migraine) 025 Active estradiol (Estrace) 1 MG tabletIndications :Low libido,Dyspareuni a in female Take 1 tablet (1 mg) by mouth in the morning. 90 tablet 025 Active carBAMazepine XR (TEGretol XR) 100 MG 12 hr tablet Take 100 mg by mouth in the morning and 100 mg before bedtime. 025 Active trimethoprim-poly myxin b (Polytrim) ophthalmic solution 025 Active progesterone (Prometrium) 100 MG capsuleIndication s:Hot flashes due to surgical menopause Take 1 capsule (100 mg) by mouth Daily 30 capsule 11 025 2025 Active erenumab (Aimovig) 70 MG/ML injection Inject 70 mg under the skin every 28 (twenty-eight) days 2024 Discontinued lithium 300 MG tablet Take 300 mg by mouth in the morning and 300 mg before bedtime. 2024 Discontinued Active Problems Problem Noted Date Diagnosed Date Generalized abdominal pain 02/09/2024 Assessment & Plan (02/09/2024 12:18 PM EST): Unclear cause of pain and check CT. Referred to GI. Intractable nausea and vomiting 02/08/2024 Assessment & Plan (02/09/2024 12:19 PM EST): Severe nausea and emesis, not able to drink or take medication. To ER several times and weight down 20 pounds in the past 2 1/2 weeks. Will attempt to get zofran pump from home health. Check CT abdomen. Follow with GI. Generalized edema 01/23/2024 Assessment & Plan (01/23/2024 1:55 PM EST): Unclear etiology and check labs and CXR. Start lasix PRN. SOB (shortness of breath) on exertion 01/23/2024 Assessment & Plan (01/23/2024 1:55 PM EST): Severe symptom and check CXR. Use albuterol PRN and start prednisone. Pain, dental 01/09/2024 Assessment & Plan (01/09/2024 10:07 AM EST): Broken tooth and follow with dentist. Gargle with warm salt water. Start ultram PRN. Fatigue 01/01/2024 Assessment & Plan (01/09/2024 10:08 AM EST): Possibly related to bipolar. Check labs. Encounter for long-term (current) use of medicat ions 01/01/2024 Mild persistent asthma with (acute) exacerbation 10/10/2023 Assessment & Plan (02/09/2024 12:19 PM EST): Recent flare but not able to take oral medication. Shot of medrol in office. Use albuterol PRN. Assessment & Plan (01/23/2024 1:55 PM EST): Continued symptoms and treat with prednisone and doxy. Use albuterol every 4 hours x 48 hours then PRN. Use OTC PRN cough or congestion. Assessment & Plan (10/10/2023 10:04 AM EDT): Continued symptoms and treat with prednisone and bactrim. Use albuterol every 4 hours x 48 hours then PRN. Use OTC PRN cough or congestion. Class 3 severe obesity due t o excess calories without serious comorbidity with body mass index (BMI) of 50.0 to 59.9 in adult 03/21/2023 Assessment & Plan (01/09/2024 10:08 AM EST): Patient overweight and difficult time losing weight. [...] month. OARRS reviewed. Continue medications as prescribed. Assessment & Plan (03/21/2023 12:36 PM EST): Patient overweight and difficult time losing weight. [...] month. OARRS reviewed. Continue medications as prescribed. Mixed bipolar I disorder 01/24/2023 Assessment & Plan (01/09/2024 10:07 AM EST): Denies worsening symptoms and follow with specialists Assessment & Plan (11/15/2023 9:45 AM EDT): Follow with specialists Chronic migraine without aur a without status migrainosus, not intractable 01/24/2023 Assessment & Plan (01/09/2024 10:08 AM EST): PINEDA worse and follow with specialists. Generalized anxiety disorder 01/24/2023 Persistent disorder of initiating or maintaining sleep 01/24/2023 Mild persistent asthma 01/24/2023 Assessment & Plan (03/21/2023 12:36 PM EST): Continued symptoms and check PFTs. Refer to pulmonology. Use albuterol PRN. Polycystic ovaries 01/24/2023 Psychogenic nonepileptic seizure 01/24/2023 Pelvic pain in female 12/19/2022 Resolved Problems Problem Noted Date Diagnosed Date Resolved Date Acute bronchitis due to othe r specified organisms 10/10/2023 01/09/2024 Assessment & Plan (11/15/2023 9:42 AM EDT): Continued symptoms and treat with prednisone and bactrim. Use albuterol every 4 hours x 48 hours then PRN. Use OTC PRN cough or congestion. Assessment & Plan (10/10/2023 10:04 AM EDT): Continued symptoms and treat with prednisone and bactrim. Use albuterol every 4 hours x 48 hours then PRN. Use OTC PRN cough or congestion. Acute right flank pain 03/21/202310/09 Assessment & Plan (03/21/2023 12:35 PM EST): History suggestive of kidney stone and check x-ray. If stone will add flomax. If negative check US. Use ultram PRN. Encounters Date Type Department Care Team Description 09/03/2024 10:20 AM EDT Office Visit [facility] [address] [address] Zay Blas DO Hot flashes due to surgical menopause 09/03/2024 Bamboo flowsheet [facility] [address] [address] Zay Blas DO 08/14/2024 Telephone [facility] [address] [place] [address] [place] 08/06/2024 Telephone [facility] [address] [place] [address] Katya Smith TERRITORY ACCOUNT REPRESENTATIVE 08/02/2024 Travel 08/01/2024 Travel 07/04/2024 Abstract [facility] [address] [place] [address] Leonor Reeder [place] 07/02/2024 Telephone [facility] [address] [place] [address] [place], [place] 07/01/2024 8:30 AM EDT Office Visit [facility] [address] [place] [address] Zay Blas DO Yeast infection; BV (bacterial vaginosis); Low libido; Dyspareunia in female 07/01/2024 Bamboo flowsheet [facility] [address] [place] [address] Zay Blas DO from Last 3 Months Family History Medical History Relation Name Comments Chromosomal disorder Daughter 2 Epididymitis Daughter 2 Asthma Father Heart disease Father Allergies Mother Asthma Mother Diabetes Mother Diabetes insipidus Mother Mental illness Son 1 Mental illness Son 2 Relation Name Status Comments Daughter 1 Alive Daughter 2 Alive Father Alive Mother Alive Sister 1 Alive Sister 2 Alive Sister 3 Alive Son 1 Alive Son 2 Alive Social History Tobacco Use Types Packs/Day Years Used Date Smoking Tobacco: Never Passive Smoke Exposure: Never Smokeless Tobacco: Never Tobacco Cessation:Counseling Given: [...] week 01/23/2024 How often do you attend chur ch or zoroastrianism services? More than 4 times per year 01/23/2024 Do you belong to any clubs o r organizations such as rastafari groups, unions, fraternal or athletic groups, or [...] Recorded Patient Health Questionnaire-2 Score 2 03/21/2023 [facility] Occupat ional Health - Occupational Stress [...] any time in the past 12 m [facility], were you homeless or living in a usp (including now)? No 01/23/2024 Comments No Sex and Gender Information Value Date Recorded Sex Assigned at Not on file Legal Sex Female 7:02 PM EDT Gender Identity Not on file Sexual Orientation Not on file Last Filed Vital Signs Vital Sign Reading Time Taken Comments Blood Pressure 136/100 09/03/2024 10:33 AM EDT Pulse 111 02/09/2024 10:38 AM EST Temperature 36.7 C (98 F) 02/09/2024 10:38 AM EST Respiratory Rate 22 02/09/2024 10:38 AM EST Oxygen Saturation 90% 02/09/2024 10:38 AM EST Inhaled Oxygen Concentration - - Weight 122 kg (268 lb 8 oz) 09/03/2024 10:33 AM EDT Height 154.9 cm (5' 1 ) 02/09/2024 10:38 AM EST Body Mass Index 50.73 02/09/2024 10:38 AM EST Plan of Treatment Upcoming Encounters Date Type Department Care Team (Late st Contact Info) Description 10/15/2024 8:10 AM EDT Office Visit [facility] [address] [place] [phone] RoopaZay argueta DO [address] [place] [address] Health Maintenance Due Date Last Done Comments Influenza Vaccine (#1) 2024 8, 12/31/2015, 11/27/2014, Additional history exists Procedures Procedure Name Priority Date/Time Associated Diagnosis Comments RECURRENT VAGINITIS (HTRX) Routine 07/01/2024 11:56 AM EDT POCT URINALYSIS DIPSTICK Routine 07/01/2024 8:43 AM EDT Yeast infection from Last 3 Months Results * (ABNORMAL) RECURRENT VAGINITIS (HTRX) (07/01/2024 11:56 AM EDT) ATOPOBIUM VAGINAE 0.000 19.961 - 24.689 ppm 07/02/2024 6:14 AM EDT [facility] ATOPOBIUM VAGINAE Not Detected 19.961 - 24.689 ppm 07/02/2024 6:14 AM EDT [facility] BVAB 2,3 (BACTERIAL VAGINOSIS ASSOCIATED BACTERIA 2, 3); MOBILUNCUS SPP 23.923(A) 19.961 - 24.689 ppm 07/02/2024 6:14 AM EDT [facility] BVAB 2,3 (BACTERIAL VAGINOSIS ASSOCIATED BACTERIA 2, 3); MOBILUNCUS SPP Detected(A) 19.961 - 24.689 ppm 07/02/2024 6:14 AM EDT [facility] JOSE ALBICANS, PARAPSILOSIS, TROPICALIS 0.000 19.961 - 30.770 ppm 07/02/2024 6:14 AM EDT [facility] [place] JOSE ALBICANS, PARAPSILOSIS, TROPICALIS Not Detected 19.961 - 30.770 ppm 07/02/2024 6:14 AM EDT [facility] [place] JOSE GLABRATA 0.000 23.000 - 32.138 ppm 07/02/2024 6:14 AM EDT [facility] [place] JOSE GLABRATA Not Detected 23.000 - 32.138 ppm 07/02/2024 6:14 AM EDT [facility] [place] JOSE KRUSEI 0.000 23.000 - 32.271 ppm 07/02/2024 6:14 AM EDT [facility] [place] JOSE KRUSEI Not Detected 23.000 - 32.271 ppm 07/02/2024 6:14 AM EDT [facility] [place] CHLAMYDIA TRACHOMATIS 0.000 23.000 - 31.467 ppm 07/02/2024 6:14 AM EDT [facility] [place] CHLAMYDIA TRACHOMATIS Not Detected 23.000 - 31.467 ppm 07/02/2024 6:14 AM EDT [facility] [place] GARDNERELLA VAGINALIS 29.333(A) 19.961 - 24.689 ppm 07/02/2024 6:14 AM EDT [facility] [place] GARDNERELLA VAGINALIS Detected(A) 19.961 - 24.689 ppm 07/02/2024 6:14 AM EDT [facility] [place] MEGASPHAERA (TYPES 1, 2) 0.000 19.961 - 24.689 ppm 07/02/2024 6:14 AM EDT [facility] [place] MEGASPHAERA (TYPES 1, 2) Not Detected 19.961 - 24.689 ppm 07/02/2024 6:14 AM EDT [facility] [place] NEISSERIA GONORRHOEAE 0.000 23.000 - 32.117 ppm 07/02/2024 6:14 AM EDT [facility] [place] NEISSERIA GONORRHOEAE Not Detected 23.000 - 32.117 ppm 07/02/2024 6:14 AM EDT [facility] [place] TRICHOMONAS VAGINALIS 0.000 23.000 - 32.119 ppm 07/02/2024 6:14 AM EDT [facility] TRICHOMONAS VAGINALIS Not Detected 23.000 - 32.119 ppm 07/02/2024 6:14 AM EDT [facility] MYCOPLASMA GENITALIUM 0.000 19.961 - 24.689 ppm 07/02/2024 6:14 AM EDT [facility] MYCOPLASMA GENITALIUM Not Detected 19.961 - 24.689 ppm 07/02/2024 6:14 AM EDT [facility] ERMB, C; MEFA 24.504(A) 23.000 - 27.611 ppm 07/02/2024 6:14 AM EDT [facility] ERMB, C; MEFA Detected(A) 23.000 - 27.611 ppm 07/02/2024 6:14 AM EDT [facility] TET B, TET M 24.543(A) 23.000 - 27.778 ppm 07/02/2024 6:14 AM EDT [facility] TET B, TET M Detected(A) 23.000 - 27.778 ppm 07/02/2024 6:14 AM EDT [facility] Tissue 07/01/2024 11:5 6 AM EDT 07/02/2024 1:30 AM EDT us Zay Blas DO LAB BLOOD ORDERABLES Final Resul t [facility] [address] [place] [address] * (ABNORMAL) POCT urinalysis dipstick manually resulted (07/01/2024 8:43 AM EDT) Color, UA Yellow Clarity, UA Clear Glucose, UA Negative Negative - 2000(110) ++++ mg/dL Bilirubin, UA Negative Negative - 4(70) +++ mg/dL Ketones, UA Negative Negative - 160(16) ++++ mg/dL Spec Grav, UA 1.025 1 - 1.03 Blood, UA Negative Negative - 50 Isiah/mcL pH, UA 6.0 5 - 9 Protein, UA Negative Negative - 2000(20) ++++ mg/dL Urobilinogen, UA 0.2 0.2 - 12 mg/dL Leukocytes, UA Negative Negative - 500+++ Blanca/mcL Nitrite, UA Negative Negative - Positive Urine 07/01/2024 8:43 AM EDT Zay Blas DO POINT OF CARE TEST ENTER/EDIT OR DERABLES Final Result from Last 3 [place] [address] [employer] Care Teams Medical Consultant Relationship Specialty Start Date End Date Lamont Blair MD [address] [place] [phone] PCP - [facility] 05/21/2401/19
--- OUTSIDE RECORDS SUMMARY | 2024-09-23 20:53 | XMS_ITS | Encounter Summary ---
Author Organization [facility] Address [address] [place] [address] Care Team Providers Care Acds Block 1 Operator Name Role Phone Abdifatah Brady (Historical) Primary Care Provide r Unavailable Source Comments In the event this information is protected by the Federal Confidentiality of Alcohol and Drug AbusePatient Records regulations: The Federal rules restrict any use of the information to criminally investigate or prosecute any alcohol or drug abuse patient.[facility] Encounter Details Date Type Department Care Team (Late st Contact Info) Description 03/23/2023 Patient Msg Neurology [address] [place], [place] [id number] Provider, Cc Hot information Social History Tobacco Use Types Packs/Day Years Used Date Smoking Tobacco: Never Smokeless Tobacco: Never PHQ-2 Answer Date Recorded PHQ-2 score 2 03/22/2023 Area Deprivation Index Answer Date Zi rded National Score (1-100), lower number is lower ri sk 94 06/23/2022 State Score (1-10), lower number is lower risk 9 06/23/2022 Data from: https://www.neighborhoodatlas.[facility]/. Last address used for calculation [address] [...] Contact Info) Description 09/24/2024 10:00 AM EDT [facility] Neurology [address] [place] [address] Griffin Lepe PA-C [address] [place] [address] Head ache control 10/25/2024 1:30 PM EDT [facility] [address] [place] [address] Vyepti 12/04/2024 3:20 PM EDT Office Visit Neurology [address] [place] [address] Tyrone Dolan MD, PhD [address] [facility] [address] [place] [id number] Headache/ concerns about pots syndrome documented as of this encounter Visit Diagnoses Not on filedocumented in this encounter Care Teams Acds Block 1 Operator Relationship Specialty Start Date End Date Abdifatah Brady (Historical) PCP - General 05/21/13 documented as of this encounter
--- OUTSIDE RECORDS SUMMARY | 2024-09-23 20:54 | XMS_ITS | Encounter Summary ---
Author Organization [facility] Address [id number] [address] [place] [address] Care Team Providers Care Flag Football Coach Name Role Phone Corine Gold MD Primary Care Provider Encounter Details Date Type Department Care Team (Late st Contact Info) Description 11/12/2020 Telephone [facility] Neurology [address] [place] [phone] Ivy Zafar, [employer]PERATIONS MANAG[employer]-MEASURING CLERK [address] [place] [address] Social History Tobacco Use Types Packs/Day Years [...] Care Team (Late st Contact Info) Description 12/17/2024 9:30 AM EDT Office Visit [facility] Pulmonary/Sleep Medicine [address] [phone] Mariah Peña DO [address] [address] documented as of this encounter Visit Diagnoses Not on filedocumented in this encounter Additional Health Concerns Infection Onset Date Last Indicated Resolved Time Enteric Rule-Out 02/10/2024 02/10/2024 02/10/2024 4:50 AM EST COVID-19 Rule-Out 02/10/2024 02/09/2024 02/10/2024 3:36 AM EST Assessment Noted Time PHQ-9 Depression Total Score: 14 05/06/ 021 1:59 PM EDT documented as of this encounter Care Teams Flag Football Coach Relationship Specialty Start Date End Date Corine Gold MD [address] [address] PCP - General Internal Medicine 03/25/24 documented as of this encounter
--- OUTSIDE RECORDS SUMMARY | 2024-09-23 20:54 | XMS_ITS | Patient Health Record ---
Author Organization [facility] [place] Address [address] [place] [address] Care Team Providers Care Hydrography Teacher Name Role Phone Lamont Blair MD Primary Care Provider Romeo MarcosHeraclio Unavailable [phone] Allergies Allergen (clinical drug ingredient) Drug/Non Drug Allergy documented on EMR Reaction Allergy Type Onset Date Status metoclopramide Reglan Panic Attacks Drug Allergy Active Adhesive rash Allergy Active azithromycin Azithromycin Unknown Drug Allergy Active azithromycin Azithromycin hives Drug Allergy Active carbamazepine Carbamazepine Unknown Drug Allergy Active cephalexin Cephalexin rash Drug Allergy Active Latex Latex hives Allergy Active metoclopramide Metoclopramide rash Drug Allergy Active buspirone Buspirone Suicidal Thoughts Drug Allergy Active clindamycin Clindamycin Unknown Drug Allergy Active dextromethorphan Dextromethorphan hives Drug Allergy Active dextromethorphan Dextromethorphan hives Drug Allergy Active propranolol Propranolol hives Drug Allergy Active vortioxetine Vortioxetine intolerance to med Drug Allergy Active Reason For Referral No Information Medications Medication SIG (Take, Route, Frequency, Duration) Notes Start Date End Date Status diazePAM 10 MG 1 tablet as needed Orally Once a day Active traZODone HCl 300 MG take 1 tablet by [facility] once daily at bedtime Oral for 30 Days Active Caplyta 10.5 MG as directed Orally 04/19/2023 Active Ketorolac Tromethamine 10 MG take 1 tablet by mouth every 6 hours if needed for SEVERE migraines Oral for 5 Days Active Estradiol 1 MG Oral for 30 Days Active Albuterol Sulfate (2.5 MG/3ML) 0.083% Take 3 mL (2.5 mg) by nebulization every 6 (six) hours if needed for wheezing Inhalation for 8 Days Active Orphenadrine Citrate ER 100 MG Oral for 15 Days Active Aimovig 70 MG/ML Subcutaneous for 30 Days Active Ondansetron 4 MG Oral for 7 Days Active Baclofen 10 MG Oral for 30 Days Active Promethazine HCl 25 MG take 1 tablet by mouth every 8 hours if needed for nausea and vomiting AND DIZZINESS Oral for 10 Days Active Albuterol Sulfate HFA 108 (90 Base) MCG/ACT Inhalation for 17 Days Active Phentermine HCl 37.5 MG take 1 tablet by mouth every morning before meals Oral for 30 Days Active [place] Carbonate 300 MG take 1 tablet by mouth twice a day Oral for 30 Days Active lamoTRIgine 200 MG Oral for 30 Days Active Mucinex DM 30-600 MG Oral for 7 Days Active Dulera 100-5 MCG/ACT 2 puffs Inhalation BID for 30 days Rinse after use 04/25/2023 Active Spiriva Respimat 1.25 MCG/ACT 2 puffs Inhalation QD for 30 days 04/25/2023 Active Immunizations Vaccine Route Administration Date Status Comme nts Flu, (76949) -historic- 3-il lent, Split, Prsrvtve Free, 6-35 months, for IM use Unknown 10/23/2012 Administered Social History Tobacco Use: Social History Observation Description Date Details (start date - stop date) Never Smoker NA - NA Tobacco Use/Smoking Question Answer Notes Patient is a nonsmoker Patient is a nonsmoker Problems Problem Type SNOMED Code ICD Code Onset Dates Problem Status W/U Status Risk Notes Problem [id number] Plantar wart (B07.0) Active confirmed Problem Chronic intractable migraine without aura (475272479318983) Chronic migraine without aura, intractable, with status migrainosus (G43.711) Active confirmed Problem Uncomplicated severe persistent asthma (233575909) Severe persistent asthma, uncomplicated (J45.50) Active confirmed Problem 163948067 Contracture, 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) Active confirmed Problem Long-term current use of inhaled steroid (093578558) [facility] (current) use of inhaled steroids (Z79.51) Active confirmed Problem Morbid obesity (730598571) Morbid obesity (E66.01) Active confirmed Problem Bipolar disorder (30765018) Bipolar disorder (F31.9) Active confirmed Problem Reactive airway disease (732840522683) Reactive airway disease (J45.909) Active confirmed Problem Intractable migraine (704028578) Intractable migraine (G43.919) Active confirmed Problem Tobacco use (475781323) Vapes nicotine containing substance (Z72.0) Active confirmed Problem 089080164 Body mass index [BMI] 45.0-49.9, adult (Z68.42) Active confirmed Problem Peripheral eosinophilia (D72.19) Active confirmed Encounters Encounter Location Date Provider Diagnosis Pulmonary Medicine [place] [address] [place] [address] 03/19/2024 Heraclio Casie Plan Of Treatment No Information Insurance Providers Payer Name Payer Address Payer Phone Subscriber Number Group Number Insured Name Patient Relationship to Insured Coverage Start Date Coverage End Date [employer] [place] [employer] [address] [place] [address] [id number] Coni Nicholson Self - patient is the insured 3 Medical (General) History Medical History History ICD Code asthma migraine headaches seizures Left foot pain M79.672 Severe persistent asthma, uncomplicated Peripheral eosinophilia Vapes nicotine containing substance terminal operator (current) use of inhaled stero ids Morbid obesity Pseudoseizures PCOS (polycystic ovarian syndrome) OMID (generalized anxiety disorder) Bipolar disorder, mixed Surgical History Surgery Date(Month/Year) diagnostic laparoscopy cholecystectomy section tubal ligation hysterectomy appendectomy vaginal repair appendectomy x2 tubal ligation diagnostic lap hysterectomy, total with bilateral salpi dumas-oophorectomy (BSO) Hospitalization History Reason Date(Month/Year) Acute Exacerbation of Asthma-[facility] 023 Acute Exacerbation of Asthma-[facility] 024
--- OUTSIDE RECORDS SUMMARY | 2024-09-23 20:54 | XMS_ITS | Encounter Summary ---
Author Organization [facility] Sys tem Address [id number] [address] [place] [address] Care Team Providers Care Master Pilot Name Role Phone Corine Gold MD Primary Care Provider [phone] Reason for Visit * Reason Onset Date Comments reschedule 06/19/2020 Encounter Details Date Type Department Care Team (Late st Contact Info) Description 06/19/2020 [facility] [address] [place] [address] Katina Horne reschedule Social History [...] would call back once she had her neighborhood planner. Please reschedule patients appt to a [...] Office Visit [facility] [address] [address] Mariah Peña DO [address] [address] documented as of this encounter Visit Diagnoses Not on filedocumented in this encounter Additional Health Concerns Infection Onset Date Last Indicated Resolved Time Enteric Rule-Out 02/10/2024 02/10/2024 02/10/2024 4:50 AM EST COVID-19 Rule-Out 02/10/2024 02/09/2024 02/10/2024 3:36 AM EST Assessment Noted Time PHQ-9 Depression Total Score: 14 021 1:59 PM EDT documented as of this encounter Care Teams Master Pilot Relationship Specialty Start Date End Date Corine Gold MD [address] [facility] [place] [address] PCP - General Internal Medicine 03/25/24 documented as of this encounter
--- OUTSIDE RECORDS SUMMARY | 2024-09-23 20:54 | XMS_ITS | Encounter Summary ---
Author Organization [facility] Address [address] [place] [address] Care Team Providers Care Brick Molder Hand Name Role Phone Lamont Blair MD Primary Care Provider [phone] Unallocated, Noms Provider Primary Care Provi mahsa Lamont Blair MD Unavailable Encounter Details Date Type Department Care Team (Late st Contact Info) Description 01/24/2024 External Result [facility] [address] [place] [address] Lamont Blair MD [address] [place] [address] Social History Tobacco Use Types Packs/Day Years [...] often do you attend chur ch or shinto services? More than 4 times per year 01/23/2024 Do you belong to any clubs o r organizations such as catholic groups, unions, fraternal or athletic groups, or [...] Recorded Patient Health Questionnaire-2 Score 2 03/21/2023 [facility] of Occupat ional Health - Occupational Stress [...] any time in the past 12 m [facility], were you homeless or living in a senior living (including now)? No 01/23/2024 Comments No Sex [...] Office Visit [facility] [address] [facility] [place] [address] Zay Blas DO [address] [facility] [address] [place], [place] [phone] documented as of this encounter Procedures Procedure Name Priority Date/Time Associated Diagnosis Comments RECURRENT VAGINITIS (HTRX) Routine 07/01/2024 11:56 AM EDT XR CHEST 2 VIEWS 01/24/2024 9:25 AM EST documented in this encounter Results * (ABNORMAL) RECURRENT VAGINITIS (HTRX) (07/01/2024 11:56 AM EDT) ATOPOBIUM VAGINAE 0.000 19.961 - 24.689 ppm 07/02/2024 6:14 AM EDT [facility] ATOPOBIUM VAGINAE Not Detected 19.961 - 24.689 ppm 07/02/2024 6:14 AM EDT [facility] BVAB 2,3 (BACTERIAL VAGINOSIS ASSOCIATED BACTERIA 2, 3); MOBILUNCUS SPP 23.923(A) 19.961 - 24.689 ppm 07/02/2024 6:14 AM EDT [facility] BVAB 2,3 (BACTERIAL VAGINOSIS ASSOCIATED BACTERIA 2, 3); MOBILUNCUS SPP Detected(A) 19.961 - 24.689 ppm 07/02/2024 6:14 AM EDT [facility] JOSE ALBICANS, PARAPSILOSIS, TROPICALIS 0.000 19.961 - 30.770 ppm 07/02/2024 6:14 AM EDT [facility] JOSE ALBICANS, PARAPSILOSIS, TROPICALIS Not Detected 19.961 - 30.770 ppm 07/02/2024 6:14 AM EDT [facility] JOSE GLABRATA 0.000 23.000 - 32.138 ppm 07/02/2024 6:14 AM EDT [facility] JOSE GLABRATA Not Detected 23.000 - 32.138 ppm 07/02/2024 6:14 AM EDT [facility] JOSE KRUSEI 0.000 23.000 - 32.271 ppm 07/02/2024 6:14 AM EDT [facility] JOSE KRUSEI Not Detected 23.000 - 32.271 ppm 07/02/2024 6:14 AM EDT [facility] CHLAMYDIA TRACHOMATIS 0.000 23.000 - 31.467 ppm 07/02/2024 6:14 AM EDT [facility] CHLAMYDIA TRACHOMATIS Not Detected 23.000 - 31.467 ppm 07/02/2024 6:14 AM EDT [facility] GARDNERELLA VAGINALIS 29.333(A) 19.961 - 24.689 ppm 07/02/2024 6:14 AM EDT [facility] GARDNERELLA VAGINALIS Detected(A) 19.961 - 24.689 ppm 07/02/2024 6:14 AM EDT [facility] MEGASPHAERA (TYPES 1, 2) 0.000 19.961 - 24.689 ppm 07/02/2024 6:14 AM EDT [facility] MEGASPHAERA (TYPES 1, 2) Not Detected 19.961 - 24.689 ppm 07/02/2024 6:14 AM EDT [facility] NEISSERIA GONORRHOEAE 0.000 23.000 - 32.117 ppm 07/02/2024 6:14 AM EDT [facility] NEISSERIA GONORRHOEAE Not Detected 23.000 - 32.117 ppm 07/02/2024 6:14 AM EDT [facility] TRICHOMONAS VAGINALIS 0.000 23.000 - 32.119 ppm 07/02/2024 6:14 AM EDT [facility] TRICHOMONAS VAGINALIS Not Detected 23.000 - 32.119 ppm 07/02/2024 6:14 AM EDT [facility] MYCOPLASMA GENITALIUM 0.000 19.961 - 24.689 ppm 07/02/2024 6:14 AM EDT [facility] MYCOPLASMA GENITALIUM Not Detected 19.961 - 24.689 ppm 07/02/2024 6:14 AM EDT [facility] ERMB, C; MEFA 24.504(A) 23.000 - 27.611 ppm 07/02/2024 6:14 AM EDT [facility] ERMB, C; MEFA Detected(A) 23.000 - 27.611 ppm 07/02/2024 6:14 AM EDT [facility] TET B, TET M 24.543(A) 23.000 - 27.778 ppm 07/02/2024 6:14 AM EDT [facility] TET B, TET M Detected(A) 23.000 - 27.778 ppm 07/02/2024 6:14 AM EDT [facility] Tissue 07/01/2024 11:5 6 AM EDT 07/02/2024 1:30 AM EDT Zay Blas DO LAB BLOOD ORDERABLES Final Resul t [facility] [place] [address] * XR chest 2 views (01/24/2024 9:25 AM EST) Anatomical Region Laterality Modality Chest Radiographic Bianca ging 01/24/2024 9:25 AM EST Narrative 01/24/2024 9:24 AM EST THIS EXAM WAS PERFORMED AT [facility] Clinical history: Shortness of breath, generalized edema. [...] timely fashion, then CT chest is warranted. Finalized by Karlo Cerna MD on 01/24/2024 9:24 AM Procedure Note Radiology, Radiologist, MD - 01/24/2024 THIS EXAM WAS PERFORMED AT [facility] Clinical history: Shortness of breath, generalized edema. Congestion andchest tightness. Comparisons: 06/29/2009 through 03/03/2022. Findings: 2 views of the chest obtained. There are ill-defined nodularopacities with in the right lower lobe. Left lung appears grossly clear.Heart size and pulmonary vasculature appear within normal limits. Nopleural effusion nor pneumothorax. IMPRESSION: 1. Ill-defined nodular opacities are present within the right lower lobe.Findings are nonspecific and may represent evolving or resolvingconsolidation from community-acquired, atypical infection or aspirationamong other etiologies. Other considerations including malignancy notexcluded, therefore clinical correlation and short-term radiographic follow-up todocument appropriate clearing is recommended. These findings do not clearin a timely fashion, then CT chest is warranted. Finalized by Karlo Cerna MD on 01/24/2024 9:24 AM Lamont Blair MD IMG XR PROCEDURES Final Result documented in this encounter Visit Diagnoses Not on filedocumented in this encounter Care Teams Brick Molder Hand Relationship Specialty Start Date End Date Lamont Blair MD [address] [place] [address] PCP - General Family Medicine 03/14/23 04/21/24 Unallocated, Noms Provider, [facility], [facility] [address] PCP - General [facility] 04/22/24 07/31/24 Lamont Blair MD [address] [place] [address] PCP - [facility] 05/21/2401/19 documented as of this encounter
--- OUTSIDE RECORDS SUMMARY | 2024-09-23 20:54 | XMS_ITS | Encounter Summary ---
Author Organization [facility] Address [address] [place] [address] Care Team Providers Care Lead Clinical Research Coordinator Name Role Phone Lamont Blair MD Primary Care Provider [phone] Unallocated, Noms Provider Primary Care Provi mahsa Lamont Blair MD Unavailable Encounter Details Date Type Department Care Team (Late st Contact Info) Description 12/11/2023 Orders Only [facility] [address] [place] [address] Kings Wallace MD [address] [place] [address] Social History Tobacco Use Types Packs/Day Years [...] AM EDT Office Visit ARLEN DOUGLAS [address] [facility] [phone] Zay Blas, [address] [facility] [address] [place], [place] [address] documented as of this encounter Procedures Procedure Name Priority Date/Time Associated Diagnosis Comments XR CHEST 2 VIEWS Routine 12/11/2023 2:49 PM EDT documented in this encounter Results * XR chest 2 views (12/11/2023 2:49 PM EDT) Anatomical Region Laterality Modality Chest Radiographic Bianca ging Kings Wallace MD IMG XR PROCEDURES Final Result documented in this encounter Visit Diagnoses Not on filedocumented in this encounter Care Teams Lead Clinical Research Coordinator Relationship Specialty Start Date End Date Lamont Blair MD [address] [place] [address] PCP - General Family Medicine 03/14/23 04/21/24 Unallocated, Noms MD [place] [address] PCP - General Family Medicine 04/22/24 07/31/24 Lamont Blair MD [address] [place] [address] PCP - [facility] 05/21/2401/19 documented as of this encounter
--- OUTSIDE RECORDS SUMMARY | 2024-09-23 20:54 | XMS_ITS | Encounter Summary ---
Author Organization [facility] Address [address] [place] [address] Care Team Providers Care Forming Fixer Name Role Phone Lamont Blair MD Primary Care Provider [phone] Unallocated, Noms Provider Primary Care Provi mahsa Lamont Blair MD Unavailable Encounter Details Date Type Department Care Team (Late st Contact Info) Description 03/05/2024 Abstract [facility] [place] O[facility] [address] [facility] [place] [address] Zay Blas DO [address] [facility] [address] [place], [place] [phone] Social History Tobacco Use Types Packs/Day Years [...] often do you attend chur ch or buddhist services? More than 4 times per year 01/23/2024 Do you belong to any clubs o r organizations such as mosque groups, unions, fraternal or athletic groups, or [...] Recorded Patient Health Questionnaire-2 Score 2 03/21/2023 [facility] of Occupat ional Health - Occupational Stress [...] any time in the past 12 m [facility], were you homeless or living [...] AM EDT Office Visit ARLEN DOUGLAS [address] [facility] [place] [address] Zay Blas DO [address] [facility] [address] [place], [place] [address] documented as of this encounter Visit Diagnoses Not on filedocumented in this encounter Care Teams Forming Fixer Relationship Specialty Start Date End Date Lamont Blair MD [address] [place] [address] PCP - General Family Medicine 03/14/23 04/21/24 Unallocated, Arlen Davalos MD [address] [place] [address] PCP - General Family Medicine 04/22/24 07/31/24 Lamont Blair MD [address] [place] [address] PCP - [facility] 05/21/2401/19 documented as of this encounter
--- OUTSIDE RECORDS SUMMARY | 2024-09-23 20:54 | XMS_ITS | Encounter Summary ---
Author Organization [facility] Sys tem Address [id number] [address] [place] [address] Care Team Providers Care Case Reviewer Name Role Phone Corine Gold MD Primary Care Provider [phone] Encounter Details Date Type Department Care Team (Late st Contact Info) Description 03/21/2024 Telephone [facility] [address] [address] Malia Mason RN Social History Tobacco Use Types [...] Mason RN - 03/21/2024 3:51 PM EST Bleach Range Operator attempted to contact patient. No answer. Left message for patient to contact office regarding RAP result. Left office phone number for reference. 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 Recommend continue Singulair and Zyrtec. Consider air purifier for home and hypoallergenic pillow. Could offer white kid buffer referral as well if patient agreeable. ----- Message from Dr. Mariah Peña DO sent at 03/21/2024 2:04 PM EST ----- Please update patient that she has multiple moderate allergies to environment and she is highly sensitized to dogs and cats- avoidance would be advised. Recommend continue Singulair and Zyrtec. Consider air purifier for home and hypoallergenic pillow. Could offer white kid buffer referral as well if she is agreeable. documented in this encounter Plan of Treatment Upcoming Encounters Date Type Department Care Team (Late st Contact Info) Description 12/17/2024 9:30 AM EDT Office Visit [facility] [address] [phone] Mariah Peña DO [address] [address] documented as of this encounter Visit Diagnoses Not on filedocumented in this encounter Additional Health Concerns Assessment Noted Time PHQ-9 Depression Total Score: 0 03/03/19 23 1:33 PM EST documented as of this encounter Care Teams Case Reviewer Relationship Specialty Start Date End Date Corine Gold MD [address] [facility] [place] [address] PCP - General Internal Medicine 03/25/24 documented as of this encounter
--- OUTSIDE RECORDS SUMMARY | 2024-09-23 20:54 | XMS_ITS | Clinical Summary ---
Author Organization [facility] Address [address] [place] [address] Care Team Providers Care Barn Boss Name Role Phone Corine Gold MD Primary Care Provider Unavail able Encounters Date Type Department Care Team Description 07/05/2024 Documentation Only [facility] [address] [facility] 4th [place] [address] [place] [address] Neeraj Shane Received P FAX 06/25/2024 Telephone [facility] [address] [facility] 4th [place] [address] [place] [address] Viktoria Walton, , [facility] Genetic Testing Prior Authorization Request from Last 3 Months Social History Tobacco Use Types Packs/Day Years Used Date Smoking Tobacco: Never Assessed Comments Unknown Sex and Gender Information Value Date Recorded Sex Assigned at Not on file Legal Sex Female 3:05 PM EDT Gender Identity Not on file Sexual Orientation Not on file Plan of Treatment Health Maintenance Due Date Last Done Comments MMR Vaccine (1 of 1 - Standard series) 11/13/1996 DTaP/Tdap/Td Vaccine (1 - Tdap) 11/13/2002 Varicella Vaccine (1 of 2 - 13+ 2-dose series) 11/13/2008 Hepatitis B Vaccine (1 of 3 - 19+ 3-dose series) 11/13/2014 HPV Vaccine (1 - 3-dose SCDM series) 11/13/2022 COVID-19 Vaccine ( - 2023- season) 2023 Influenza Vaccine (#1) 2024 6, 11/27/2014, 10/23/2012, Additional history exists HIB Vaccine Aged Out No longer eligi ble based on patient's age to complete this topic Hepatitis A Vaccine Aged Out No longe r eligible based on patient's age to complete this topic IPV Vaccine Aged Out No longer eligi ble based on patient's age to complete this topic Meningococcal ACWY Vaccine Aged Out N o longer eligible based on patient's age to complete this topic Meningococcal B Vaccine Aged Out No l onger eligible based on patient's age to complete this topic Pneumococcal Vaccine Aged Out No long er eligible based on patient's age to complete this topic RSV, Nirsevimab Immunization Aged Out No longer eligible based on patient's age to complete this topic Rotavirus Vaccine Aged Out No longer eligible based on patient's age to complete this topic Care Teams Barn Boss Relationship Specialty Start Date End Date Corine Gold MD [address] [place] [address] PCP - General Family Medicine 06/11/24
--- OUTSIDE RECORDS SUMMARY | 2024-09-23 20:54 | XMS_ITS | Encounter Summary ---
Author Organization [facility] Address [id number] [address] [place] [address] Care Team Providers Care Release Manager Name Role Phone Corine Gold MD Primary Care Provider [phone] Encounter Details Date Type Department Care Team (Late st Contact Info) Description 09/02/2020 Orders Only [facility] [address] [place] [address] Ivy Zafar, FREIGHT DISPATCHER-DRYWALL APPLICATION SUPERVISOR [address] [place] [address] Social History Tobacco Use Types Packs/Day Years [...] Office Visit [facility] [address] [phone] Mariah Peña DO [address] [address] documented as of this encounter Visit Diagnoses Not on filedocumented in this encounter Additional Health Concerns Infection Onset Date Last Indicated Resolved Time Enteric Rule-Out 02/10/2024 02/10/2024 02/10/2024 4:50 AM EST COVID-19 Rule-Out 02/10/2024 02/09/2024 02/10/2024 3:36 AM EST Assessment Noted Time PHQ-9 Depression Total Score: 14 021 1:59 PM EDT documented as of this encounter Care Teams Release Manager Relationship Specialty Start Date End Date Corine Gold MD [address] [place], [place] [address] PCP - General Internal Medicine 03/25/24 documented as of this encounter
--- OUTSIDE RECORDS SUMMARY | 2024-09-23 20:54 | XMS_ITS | Encounter Summary ---
Author Organization [facility] tem Address [id number] [address] [place] [address] Care Team Providers Care Gis Scientist Name Role Phone Corine Gold MD Primary Care Provider [phone] Encounter Details Date Type Department Care Team (Late Contact Info) Description 05/29/2019 Telephone Maternal- Medicine at [facility] [address] [facility] [place] [address] Radha Matson LPN Social History Tobacco Use [...] Office Visit [facility] [address] [phone] Mariah Peña, [address] [address] documented as of this encounter Visit Diagnoses Not on filedocumented in this encounter Additional Health Concerns Infection Onset Date Last Indicated Resolved Time Enteric Rule-Out 02/10/2024 02/10/2024 02/10/2024 4:50 AM EST COVID-19 Rule-Out 02/10/2024 02/09/2024 02/10/2024 3:36 AM EST documented as of this encounter Care Teams Gis Scientist Relationship Specialty Start Date End Date Corine Gold MD [address] [facility] [address], [place] [address] PCP - General Internal Medicine 03/25/24 documented as of this encounter
--- OUTSIDE RECORDS SUMMARY | 2024-09-23 20:54 | XMS_ITS | Encounter Summary ---
Author Organization [facility] Sys tem Address [id number] [address] [place] [address] Care Team Providers Care Clothing Worker Name Role Phone Corine Gold MD Primary Care Provider [phone] Encounter Details Date Type Department Care Team (Late st Contact Info) Description 05/12/2020 Telephone [facility] [address] [place] [phone] Ivy Zafar, PHOTOENGRAVING PROOFER-TRAUMA PROGRAM MANAGER [address] [place] [address] Social History Tobacco Use Types Packs/Day Years [...] Office Visit [facility] [address] [address] Mariah Peña DO [address] [address] documented as of this encounter Visit Diagnoses Not on filedocumented in this encounter Additional Health Concerns Infection Onset Date Last Indicated Resolved Time Enteric Rule-Out 02/10/2024 02/10/2024 02/10/2024 4:50 AM EST COVID-19 Rule-Out 02/10/2024 02/09/2024 02/10/2024 3:36 AM EST Assessment Noted Time PHQ-9 Depression Total Score: 14 021 1:59 PM EDT documented as of this encounter Care Teams Clothing Worker Relationship Specialty Start Date End Date Corine Gold MD [address] [facility] [place] [address] PCP - General Internal Medicine 03/25/24 documented as of this encounter
--- OUTSIDE RECORDS SUMMARY | 2024-09-23 20:54 | XMS_ITS | Encounter Summary ---
Author Organization [facility] Address [id number] [address] [place] [address] Care Team Providers Care Produce Production Team Member Name Role Phone Corine Gold MD Primary Care Provider [phone] Encounter Details Date Type Department Care Team (Late st Contact Info) Description 11/25/2020 Orders Only [facility] [address] [place] [phone] Ivy Zafar, BAND NAILER-DIRECTOR OF KNOWLEDGE MANAGEMENT [address] [place] [address] Social History Tobacco Use Types Packs/Day Years [...] Office Visit [facility] [address] [phone] Mariah Peña DO [address] [phone] documented as of this encounter Visit Diagnoses Not on filedocumented in this encounter Additional Health Concerns Infection Onset Date Last Indicated Resolved Time Enteric Rule-Out 02/10/2024 02/10/2024 02/10/2024 4:50 AM EST COVID-19 Rule-Out 02/10/2024 02/09/2024 02/10/2024 3:36 AM EST Assessment Noted Time PHQ-9 Depression Total Score: 14 05/06/ 021 1:59 PM EDT documented as of this encounter Care Teams Produce Production Team Member Relationship Specialty Start Date End Date Corine Gold MD [address] [place], [place] [phone] PCP - General Internal Medicine 03/25/24 documented as of this encounter
--- OUTSIDE RECORDS SUMMARY | 2024-09-23 20:54 | XMS_ITS | Encounter Summary ---
Author Organization [facility] Address [address] [place] [address] Care Team Providers Care Critical Power Install Technician Name Role Phone Lamont Blair MD Primary Care Provider [phone] Unallocated, Noms Provider Primary Care Provi mahsa Lamont Blair MD Unavailable Encounter Details Date Type Department Care Team (Late st Contact Info) Description 01/01/2024 Orders Only [facility] [address] [place] [address] Lamont Blair MD [address] [address] Social History Tobacco Use Types Packs/Day Years [...] AM EDT Office Visit ARLEN DOUGLAS [address] [facility] [place] [place] [address] Zay Blas DO [address] [facility] [address] [place], [place] [phone] documented as of this encounter Visit Diagnoses Not on filedocumented in this encounter Care Teams Critical Power Install Technician Relationship Specialty Start Date End Date Lamont Blair MD [address] [place] [phone] PCP - General Family Medicine 03/14/23 04/21/24 Unallocated, Arlen Davalos MD [address] [place] [address] PCP - General Family Medicine 04/22/24 07/31/24 Lamont Blair MD [address] [place] [address] PCP - [facility] 05/21/2401/19 documented as of this encounter
--- OUTSIDE RECORDS SUMMARY | 2024-09-23 20:54 | XMS_ITS | Encounter Summary ---
Author Organization [facility] Address [facility]-[id number] [address] [place] [address] Care Team Providers Care Learning Consultant Name Role Phone Corine Gold MD Primary Care Provider [phone] Encounter Details Date Type Department Care Team (Late st Contact Info) Description 08/17/2020 Orders Only [facility] Neurology [address] [place] [phone] Ivy Zafar, THERAPEUTIC RADIOLOGIST-MARKETING DEVELOPMENT REPRESENTATIVE [address] [place] [address] Social History Tobacco Use Types Packs/Day Years [...] Office Visit [facility] Pul[facility]Sleep Medicine [address] [phone] Mariah Peña DO [address] [address] documented as of this encounter Visit Diagnoses Not on filedocumented in this encounter Additional Health Concerns Infection Onset Date Last Indicated Resolved Time Enteric Rule-Out 02/10/2024 02/10/2024 02/10/2024 4:50 AM EST COVID-19 Rule-Out 02/10/2024 02/09/2024 02/10/2024 3:36 AM EST Assessment Noted Time PHQ-9 Depression Total Score: 14 021 1:59 PM EDT documented as of this encounter Care Teams Learning Consultant Relationship Specialty Start Date End Date Corine Gold MD [address] [place], [place] [id number] PCP - General Internal Medicine 03/25/24 documented as of this encounter
--- OUTSIDE RECORDS SUMMARY | 2024-09-23 20:54 | XMS_ITS | Encounter Summary ---
Author Organization [facility] Address [address] [place] [address] Care Team Providers Care Technical Services Manager Name Role Phone Lamont Blair MD Primary Care Provider [phone] Unallocated, Noms Provider Primary Care Provi mahsa Lamont Blair MD Unavailable Encounter Details Date Type Department Care Team (Late st Contact Info) Description 02/19/2024 Clinisync Result Encounter [facility] External Department Unsolicited Provider, Generic External Data Social History Tobacco Use Types Packs/Day Years [...] week 01/23/2024 How often do you attend [facility] or synagogue services? More than 4 times per year 01/23/2024 Do you belong to any clubs o r organizations such as zoroastrian groups, unions, fraternal or athletic groups, or [...] Recorded Patient Health Questionnaire-2 Score 2 03/21/2023 [facility] - Occupational Stress Questionnaire Answer Date Recorded [...] were you homeless or living in a mcfp (including now)? No 01/23/2024 Comments No Sex [...] EDT Office Visit [facility] [address] [place] [address] Brenda Blas DO [address] [place] [address] documented as of this encounter Procedures Procedure Name Priority Date/Time Associated Diagnosis Comments US PELVIS W/ TRANSVAGINAL 02/19/2024 8:05 AM EST documented in this encounter Results * US PELVIS W/ TRANSVAGINAL (02/19/2024 8:05 AM EST) Anatomical Region Laterality Modality Other 02/19/2024 8:05 AM EST Narrative 02/19/2024 8:08 AM EST The [address] [address] Ultrasound Report Signed Patient: MARGARET NICHOLSON MR#: [id number] : 1995 Acct:[id number] Age/Sex: 28 / F ADM Date: 02/19/24 Loc: US Attending Dr: Brenda Blas D.O. Ordering Physician: Brenda Blas D.O. Date of Service: 02/19/24 Procedure(s): US pelvis w/ transvaginal Accession Number(s): [id number] cc: Brenda Blas D.O.; Lamont Blair M.D. The [place] [address] Patient Name: MARGARET NICHOLSON MRN: [id number] date: 1995 Sex: F Assigned Patient Location: US Current Patient Location: US Accession/Order Number: [id number] Exam Date: 02/19/2024 07:11 Report Date: 02/19/2024 08:05 At the request of: BRENDA BLAS Procedure: US pelvis w/ transvaginal EXAMINATION: US pelvis w/ transvaginal HISTORY: Pelvic pain in female R10.2 COMPARISON: Ultrasound pelvis 11/24/2022, 08/14/2021 TECHNIQUE: Transabdominal and/or transvaginal sonographic examination was performed as indicated by examination type. FINDINGS: UTERUS: Hysterectomy. RIGHT OVARY: Contains a heterogeneous hypoechoic mass versus complex cyst, 4.6 x 3.7 x 3.2 cm. Duplex Doppler demonstrates normal waveform and flow; resistive index 0.4. Ovary size: 5.3 x 4.4 x 4.2 cm LEFT OVARY: Normal size and appearance. Duplex Doppler demonstrates normal waveform and flow; resistive index 0.4. Ovary size: 2.6 x 1.7 x 2.5 cm CUL-DE-SAC: Unremarkable. No significant free fluid. BLADDER: Unremarkable. OTHER: None. US/US pelvis w/ transvaginal IMPRESSION: 1. Right ovary contains a 4.6 cm mass versus complex cyst. Consider follow-up ultrasound evaluation in 6 weeks to document regression versus stability. 2. Normal appearance of left ovary. 3. Prior hysterectomy. Electronically authenticated by: ANDRE IBRAHIM Date: 02/19/2024 08:05 Dictated By: Andre Ibrahim M.D. Signed By: 02/19/24807 DD/ 4 TD/TT: Commissary Clerk: Procedure Note Radiology, Radiologist, MD - 02/19/2024 [place] [address] Ultrasound Report Signed Patient: MARGARET NICHOLSON LMR#: [id number] : 1995Acct:[id number] Age/Sex: 28 / FADM Date: 02/19/24 Loc: US Attending Dr: Brenda Blas D.O. Ordering Physician: Brenda Blas D.O. Date of Service: 02/19/24 Procedure(s): US pelvis w/ transvaginal Accession Number(s): [id number] cc: Brenda Blas D.O.; Lamont Blair M.D. [place] [address] Patient Name: MARGARET NICHOLSON MRN: [id number] date: 1995 Sex: F Assigned Patient Location: US Current Patient Location: US Accession/Order Number: [id number] Exam Date: 02/19/2024 07:11 Report Date: 02/19/2024 08:05 At the request of: BRENDA BLAS Procedure: US pelvis w/ transvaginal EXAMINATION: US pelvis w/ transvaginal HISTORY: Pelvic pain in female R10.2 COMPARISON: Ultrasound pelvis 11/24/2022, 08/14/2021 TECHNIQUE: Transabdominal and/or transvaginal sonographic examination was performed as indicated by examination type. FINDINGS: UTERUS: Hysterectomy. RIGHT OVARY: Contains a heterogeneous hypoechoic mass versus complex cyst,4.6 x 3.7 x 3.2 cm. Duplex Doppler demonstrates normal waveform and flow; resistive index 0.4. Ovary size: 5.3 x 4.4 x 4.2 cm LEFT OVARY: Normal size and appearance. Duplex Doppler demonstrates normal waveform and flow; resistive index 0.4. Ovary size: 2.6 x 1.7 x 2.5 cm CUL-DE-SAC: Unremarkable. No significant free fluid. BLADDER: Unremarkable. OTHER: None. US/US pelvis w/ transvaginal IMPRESSION: 1. Right ovary contains a 4.6 cm mass versus complex cyst. Considerfollow-up ultrasound evaluation in 6 weeks to document regression versus stability. 2. Normal appearance of left ovary. 3. Prior hysterectomy. Electronically authenticated by: ANDRE Mendenhall: 02/19/2024 08:05 Dictated By: Andre Ibrahim M.D. Signed By:02/19/24807 DD/ 4 TD/TT: Commissary Clerk: us Generic External Data Provider [facility] Final Result documented in this encounter Visit Diagnoses Not on filedocumented in this encounter Care Teams Technical Services Manager Relationship Specialty Start Date End Date Lamont Blair MD [address] [place] [address] PCP - General Family Medicine 03/14/23 04/21/24 Unallocated, Noms Provider, [address] [place] [address] PCP - General Family Medicine 04/22/24 07/31/24 Lamont Blair MD [address] [place] [address] PCP - [facility] 05/21/2401/19 documented as of this encounter
--- OUTSIDE RECORDS SUMMARY | 2024-09-23 20:55 | XMS_ITS | Encounter Summary ---
Author Organization [facility] Address [address] [place] [address] Care Team Providers Care Food And Drink Factory Workers Name Role Phone Abdifatah Brady (Historical) Primary Care Provide r Unavailable Source Comments In the event this information is protected by the Federal Confidentiality of Alcohol and Drug AbusePatient Records regulations: The Federal rules restrict any use of the information to criminally investigate or prosecute any alcohol or drug abuse patient.[facility] Encounter Details Date Type Department Care Team (Late st Contact Info) Description 12/07/2022 Get Medical Advice Neurology [address] [place] [address] Sagar Barth APRN.REGULATORY CONSULTANT [address] [place] [address] Medication Social History Tobacco Use Types Packs/Day Years Used Date Smoking Tobacco: Never Smokeless Tobacco: Never PHQ-2 Answer Date Recorded PHQ-2 score 4 11/10/2022 Area Deprivation Index Answer Date Zi rded National Score (1-100), lower number is lower ri sk 94 06/23/2022 State Score (1-10), lower number is lower risk 9 06/23/2022 Data from: https://www.neighborhoodatlas.medicine.[facility].edu/. Last address used for calculation [...] Contact Info) Description 09/24/2024 10:[address] [facility] Neurology [address] [place] [address] Griffin Lepe PA-C [address] [place] [address] Head ache control 10/25/2024 1:30 PM EDT [facility] Neurology [address] [place] [phone] [place] 12/04/2024 3:20 PM EDT Office Visit Neurology [address] [place] [phone] Tyrone Dolan MD, PhD [address] [facility] [address] [place], [place] [phone] Headache/ concerns about pots syndrome documented as of this encounter Visit Diagnoses Not on filedocumented in this encounter Care Teams Food And Drink Factory Workers Relationship Specialty Start Date End Date Abdifatah Brady (Historical) PCP - General 05/21/13 documented as of this encounter
--- OUTSIDE RECORDS SUMMARY | 2024-09-23 20:55 | XMS_ITS | Encounter Summary ---
Author Organization [facility] Address [address] [place] [address] Care Team Providers Care Medicare Contact Specialist Name Role Phone Abdifatah Brady (Historical) Primary Care Provide r Unavailable Source Comments In the event this information is protected by the Federal Confidentiality of Alcohol and Drug AbusePatient Records regulations: The Federal rules restrict any use of the information to criminally investigate or prosecute any alcohol or drug abuse patient.[facility] Encounter Details Date Type Department Care Team (Late st Contact Info) Description 06/27/2022 Patient Msg Neurology [address] [place], [place] [phone] Provider, [facility] Headache infusion Social History Tobacco Use Types Packs/Day Years Used Date Smoking Tobacco: Never Assessed PHQ-2 Answer Date Recorded PHQ-2 score 2 06/24/2022 Area Deprivation Index Answer Date Zi rded National Score (1-100), lower number is lower ri sk 94 06/23/2022 State Score (1-10), lower number is lower risk 9 06/23/2022 Data from: https://www.neighborhoodatlas.[facility]/. Last address used for calculation [...] Contact Info) Description 09/24/2024 10:00 AM EDT [facility] Neurology [address] [place] [address] Griffin Lepe PA-C [address] [place] [address] Head ache control 10/25/2024 1:30 PM EDT Infusion [facility] Neurology [address] [place] [address] [place] 12/04/2024 3:20 PM EDT Office Visit Neurology [address] [place] [address] Tyrone Dolan MD, PhD [address] [facility] [address] [place] [phone] Headache/ concerns about pots syndrome documented as of this encounter Visit Diagnoses Not on filedocumented in this encounter Care Teams Medicare Contact Specialist Relationship Specialty Start Date End Date Abdifatah Brady (Historical) PCP - General 05/21/13 documented as of this encounter
--- OUTSIDE RECORDS SUMMARY | 2024-09-23 20:55 | XMS_ITS | Encounter Summary ---
Author Organization [facility] Address [address] [place] [address] Care Team Providers Care Stadium Attendant Name Role Phone Abdifatah Brady (Historical) Primary Care Provide r Unavailable Source Comments In the event this information is protected by the Federal Confidentiality of Alcohol and Drug AbusePatient Records regulations: The Federal rules restrict any use of the information to criminally investigate or prosecute any alcohol or drug abuse patient.[facility] Encounter Details Date Type Department Care Team (Late st Contact Info) Description 02/07/2024 Patient Msg Neurology [address] [place], [place] [phone] Provider, Rosa Betancourt for 2024 Social History Tobacco Use Types Packs/Day Years Used Date Smoking Tobacco: Never Smokeless Tobacco: Never PHQ-2 Answer Date Recorded PHQ-2 score 3 01/17/2024 Area Deprivation Index Answer Date Zi rded National Score (1-100), lower number is lower ri sk 94 06/23/2022 State Score (1-10), lower number is lower risk 9 06/23/2022 Data from: https://www.neighborhoodatlas.[facility]/. Last address used for calculation [address] [...] Contact Info) Description 09/24/2024 10:00 AM EDT [facility] Neurology [address] [place], [place] [phone] Griffin Lepe PA-C [address] [place] [address] Head ache control 10/25/2024 1:30 PM EDT Infusion [facility] Neurology [address] [place] [address] [place] 12/04/2024 3:20 PM EDT Office Visit Neurology [address] [place] [address] Tyrone Dolan MD, PhD [address] [facility] [address] [place], [place] [phone] Headache/ concerns about pots syndrome documented as of this encounter Visit Diagnoses Not on filedocumented in this encounter Care Teams Stadium Attendant Relationship Specialty Start Date End Date Abdifatah Brady (Historical) PCP - General 05/21/13 documented as of this encounter
--- OUTSIDE RECORDS SUMMARY | 2024-09-23 20:55 | XMS_ITS | Encounter Summary ---
Author Organization [facility] Address [facility]-[id number] [address] [place] [address] Care Team Providers Care Airfield Engineer Officer Name Role Phone Corine Gold MD Primary Care Provider [phone] Encounter Details Date Type Department Care Team (Late st Contact Info) Description 06/17/2021 Telephone [facility] Neurology [address] [place] [address] Aide Smalls RN Social History [...] EDT Regarding: Shots That would be great Hi Sandie ?? As of now I have no availability. We can check with resident clinic if interested ?? Karla HECK * Telephone Encounter - Aide [...] Office Visit [facility] Pul[facility]/Sleep Medicine [address] [address] Mariah Peña DO [address] [address] documented as of this encounter Visit Diagnoses Not on filedocumented in this encounter Additional Health Concerns Infection Onset Date Last Indicated Resolved Time Enteric Rule-Out 02/10/2024 02/10/2024 02/10/2024 4:50 AM EST COVID-19 Rule-Out 02/10/2024 02/09/2024 02/10/2024 3:36 AM EST Assessment Noted Time PHQ-9 Depression Total Score: 14 05/06/ 021 1:59 PM EDT documented as of this encounter Care Teams Airfield Engineer Officer Relationship Specialty Start Date End Date Corine Gold MD [address] [facility] [place] [address] PCP - General Internal Medicine 03/25/24 documented as of this encounter
--- OUTSIDE RECORDS SUMMARY | 2024-09-23 20:55 | XMS_ITS | Encounter Summary ---
Author [facility] Address [facility]-[id number] [address] [place] [address] Care Team Providers Care Pattern Finisher Name Role Phone Corine Gold MD Primary Care Provider [phone] Encounter Details Date Type Department Care Team (Late Contact Info) Description 06/07/2022 Telephone [facility] Internal Medicine - Family Medicine [address] [place] [address] Angélica Weber, GEOLOGY TECHNICIAN-WIND ENERGY ENGINEER [address] [facility] [place] [address] Social History Tobacco Use Types Packs/Day Years [...] Upcoming Encounters Date Type Department Care Team ([facility] Contact Info) Description 12/17/2024 9:30 AM EDT Office Visit [facility]Sleep Medicine [address] [phone] Mariah Peña DO [address] [address] documented as of this encounter Visit Diagnoses Not on filedocumented in this encounter Additional Health Concerns Infection Onset Date Last Indicated Resolved Time Enteric Rule-Out 02/10/2024 02/10/2024 02/10/2024 4:50 AM EST COVID-19 Rule-Out 02/10/2024 02/09/2024 02/10/2024 3:36 AM EST Assessment Noted Time PHQ-9 Depression Total Score: 0 03/03/19 23 1:33 PM EST documented as of this encounter Care Teams Pattern Finisher Relationship Specialty Start Date End Date Corine Gold MD [address] [facility] [place] [address] PCP - General Internal Medicine 03/25/24 documented as of this encounter
--- OUTSIDE RECORDS SUMMARY | 2024-09-23 20:55 | XMS_ITS | Encounter Summary ---
Author Organization [facility] Address [facility]-[id number] [address] [place] [address] Care Team Providers Care Can Tester Name Role Phone Corine Gold MD Primary Care Provider [phone] Reason for Visit * Reason Onset Date Comments Med Refill 04/29/2024 Encounter Details Date Type Department Care Team (Late st Contact Info) Description 04/29/2024 Refill [facility] Family Medicine [address] [place] [address] Corine Gold MD [address] [place] [address] Social History Tobacco Use Types Packs/Day Years Used Date Smoking Tobacco: Never Smokeless Tobacco: Never Alcohol Use Standard Drinks/Week Comments Not Currently 0 (1 standard drink = 0.6 oz pur e alcohol) social [facility] Utilities Answer Date Recorded In the past 12 months has [employer], [employer], oil, or water [employer] threatened to shut off services in your [...] Office Visit [facility]Sleep Medicine [address] [address] Mariah Peña DO [address] [address] documented as of this encounter Goals Goal Patient Goal Type Associated Problems Recent Progress Patient-Stated? Author home General Yes Chanel, Tamiko, RN Note: Evaluation of progress towards goal: Patient stated goal is to return home with [facility] for assistance with wound care documented as of this encounter Visit Diagnoses Not on filedocumented in this encounter Additional Health Concerns Assessment Noted Time PHQ-9 Depression Total Score: 0 04/26/19 25 1:05 PM EST documented as of this encounter Care Teams Can Tester Relationship Specialty Start Date End Date Corine Gold MD [address], [facility] [place] [address] PCP - General Internal Medicine 03/25/24 documented as of this encounter
--- OUTSIDE RECORDS SUMMARY | 2024-09-23 20:55 | XMS_ITS | Encounter Summary ---
Author Organization [facility] Address [facility]-[id number] [address] [place] [address] Care Team Providers Care Deoiling Machine Operator Name Role Phone Corine Gold MD Primary Care Provider [phone] Encounter Details Date Type Department Care Team (Late st Contact Info) Description 03/10/2021 Orders Only [facility] Neurology [address] [place] [phone] Ivy Zafar, SENIOR QUALITY METHODS SPECIALIST-VOTATOR MACHINE OPERATOR [address] [place] [address] Chronic mixed headache syndrome Social History Tobacco [...] Office Visit [facility]Sleep Medicine [address] [phone] Mariah Peña DO [address] [address] documented as of this encounter Visit Diagnoses [...] documented as of this encounter Care Teams Deoiling Machine Operator Relationship Specialty Start Date End Date Corine Gold MD [address] [facility] [place] [address] PCP - General Internal Medicine 03/25/24 documented as of this encounter
--- OUTSIDE RECORDS SUMMARY | 2024-09-23 20:55 | XMS_ITS | Encounter Summary ---
Author Organization [facility] Address [facility][id number] [address] [place] [address] Care Team Providers Care Asphalt Tile Floor Layer Name Role Phone Corine Gold MD Primary Care Provider [phone] Reason for Visit * Reason Comments Med Refill Encounter Details Date Type Department Care Team (Late st Contact Info) Description 01/24/2022 Refill [facility] Internal Medicine - Family Medicine [address] [place] [phone] Darien Caicedo, DO [address] [facility] [place] [address] Moderate persistent asthma, unspecified whether complicated (Primary [...] Visit [facility]Sleep Medicine [address] [phone] Mariah Peña DO [address] [address] documented as of this encounter Visit Diagnoses [...] documented as of this encounter Care Teams Asphalt Tile Floor Layer Relationship Specialty Start Date End Date Corine Gold MD [address] [facility] [place] [address] PCP - General Internal Medicine 03/25/24 documented as of this encounter
--- OUTSIDE RECORDS SUMMARY | 2024-09-23 20:55 | XMS_ITS | Encounter Summary ---
Author Organization [facility] Address [facility] [place] [address] Care Team Providers Care Money Market Dealer Name Role Phone Abdifatah Brady (Historical) Primary Care Provide r Unavailable Source Comments In the event this information is protected by the Federal Confidentiality of Alcohol and Drug AbusePatient Records regulations: The Federal rules restrict any use of the information to criminally investigate or prosecute any alcohol or drug abuse patient.[facility] Encounter Details Date Type Department Care Team (Late st Contact Info) Description 01/16/2024 Get Medical Advice Neurology [address] [place] [address] Griffin Lepe PA-C [address] [place] [address] Uodate Social History Tobacco Use Types Packs/Day Years Used Date Smoking Tobacco: Never Smokeless Tobacco: Never PHQ-2 Answer Date Recorded PHQ-2 score 3 01/17/2024 Area Deprivation Index Answer Date Zi rded National Score (1-100), lower number is lower ri sk 94 06/23/2022 State Score (1-10), lower number is lower risk 9 06/23/2022 Data from: https://www.neighborhoodatlas.medicine.[facility]/. Last address used for calculation [address] [...] Contact Info) Description 09/24/2024 10:00 AM EDT [facility] Neurology [address] [place] [address] Griffin Lepe PA-C [address] [place] [address] Head ache control 10/25/2024 1:30 PM EDT Infusion Center Neurology [address] [place] [phone] [place] 12/04/2024 3:20 PM EDT Office Visit Neurology [address] [place] [phone] Tyrone Dolan MD, PhD [address] [facility] [address] [place], [place] [phone] Headache/ concerns about pots syndrome documented as of this encounter Visit Diagnoses Not on filedocumented in this encounter Care Teams Money Market Dealer Relationship Specialty Start Date End Date Abdifatah Brady (Historical) PCP - General 05/21/13 documented as of this encounter
--- OUTSIDE RECORDS SUMMARY | 2024-09-23 20:55 | XMS_ITS | Encounter Summary ---
Author Organization [facility] Address [address] [place] [address] Care Team Providers Care Sewer Pipe Cleaner Name Role Phone Abdifatah Brady (Historical) Primary Care Provide r Unavailable Source Comments In the event this information is protected by the Federal Confidentiality of Alcohol and Drug AbusePatient Records regulations: The Federal rules restrict any use of the information to criminally investigate or prosecute any alcohol or drug abuse patient.[facility] Encounter Details Date Type Department Care Team (Late st Contact Info) Description 04/29/2024 Get Medical Advice Neurology [address] [place] [address] Griffin Lepe PA-C [address] [place] [address] Infusions Social History Tobacco Use Types Packs/Day Years Used Date Smoking Tobacco: Never Smokeless Tobacco: Never PHQ-2 Answer Date Recorded PHQ-2 score 2 05/03/2024 Area Deprivation Index Answer Date Zi rded National Score (1-100), lower number is lower ri sk 94 06/23/2022 State Score (1-10), lower number is lower risk 9 06/23/2022 Data from: https://www.neighborhoodatlas.medicine.[facility]/. Last address used for calculation [address] [...] Info) Description 09/24/2024 10:00 AM EDT [facility] Neurology [address] [place] [address] Griffin Lepe PA-C [address] [place] [address] Head ache control 10/25/2024 1:30 PM EDT [facility]fusion [facility] Neurology [address] [place] [address] Vyepti 12/04/2024 3:20 PM EDT Office Visit Neurology [address] [id number] Tyrone Dolan MD, PhD [address] [facility] [address] [place] [address] Headache/ concerns about pots syndrome documented as of this encounter Visit Diagnoses Not on filedocumented in this encounter Care Teams Sewer Pipe Cleaner Relationship Specialty Start Date End Date Abdifatah Brady (Historical) PCP - General 05/21/13 documented as of this encounter
--- OUTSIDE RECORDS SUMMARY | 2024-09-23 20:55 | XMS_ITS | Encounter Summary ---
Author Organization [facility] Address [id number] [address] [place] [address] Care Team Providers Care Mortgage Specialist Name Role Phone Corine Gold MD Primary Care Provider [phone] Reason for Visit * Reason Comments Med Refill Encounter Details Date Type Department Care Team (Late st Contact Info) Description 05/08/2022 Refill [facility] Internal Medicine - Family Medicine [address] [place] [phone] Angélica Weber, CAN PILER-RECREATIONAL LEADER [address] [facility] [place] [address] Social History Tobacco Use Types Packs/Day Years [...] Office Visit [facility] Pulmonary/Sleep Medicine [address] [phone] Mariah Peña DO [address] [address] documented as of this encounter Visit Diagnoses Not on filedocumented in this encounter Additional Health Concerns Infection Onset Date Last Indicated Resolved Time Enteric Rule-Out 02/10/2024 02/10/2024 02/10/2024 4:50 AM EST COVID-19 Rule-Out 02/10/2024 02/09/2024 02/10/2024 3:36 AM EST Assessment Noted Time PHQ-9 Depression Total Score: 0 03/03/19 23 1:33 PM EST documented as of this encounter Care Teams Mortgage Specialist Relationship Specialty Start Date End Date Corine Gold MD [address] [facility] [place] [address] PCP - General Internal Medicine 03/25/24 documented as of this encounter
--- OUTSIDE RECORDS SUMMARY | 2024-09-23 20:55 | XMS_ITS | Encounter Summary ---
Author Organization [facility] Address [address] [place] [address] Care Team Providers Care Quality Improvement Consultant Name Role Phone Abdifatah Brady (Historical) Primary Care Provide r Unavailable Source Comments In the event this information is protected by the Federal Confidentiality of Alcohol and Drug AbusePatient Records regulations: The Federal rules restrict any use of the information to criminally investigate or prosecute any alcohol or drug abuse patient.[facility] Reason for Visit * Reason Onset Date Comments Refill Request 01/26/2024 Encounter Details Date Type Department Care Team (Late st Contact Info) Description 01/26/2024 Refill Neurology [address] [place] [address] Sagar Barth APRN.WATCH TRAIN INSPECTOR [address] [place] [address] Refill Request Social History Tobacco Use Types Packs/Day Years Used Date Smoking Tobacco: Never Smokeless Tobacco: Never PHQ-2 Answer Date Recorded PHQ-2 score 3 01/17/2024 Area Deprivation Index Answer Date Zi rded National Score (1-100), lower number is lower ri sk 94 06/23/2022 State Score (1-10), lower number is lower risk 9 06/23/2022 Data from: https://www.neighborhoodatlas.medicine.[facility]/. Last address used for calculation [address] [...] Contact Info) Description 09/24/2024 10:00 AM EDT [facility] Neurology [address] [place] [address] Griffin Lepe PA-C [address] [place] [address] Head ache control 10/25/2024 1:30 PM EDT Infusion Center Neurology [address] [phone] Vyepti 12/04/2024 3:20 PM EDT Office Visit Neurology [address] [phone] yTrone Dolan MD, PhD [address] [facility] [address] [place], [place] [address] Headache/ concerns about pots syndrome documented as of this encounter Visit Diagnoses Diagnosis Intractable chronic migraine without aura and without status migrainosus Chronic migraine without aura, with intractable migraine, so stated, without mention of status migrainosus documented in this encounter Care Teams Quality Improvement Consultant Relationship Specialty Start Date End Date Abdifatah Brady (Historical) PCP - General 05/21/13 documented as of this encounter
--- OUTSIDE RECORDS SUMMARY | 2024-09-23 20:55 | XMS_ITS | Clinical Summary ---
Author Organization [facility] Address [address] [place] [address], [address] [place] [address] Care Team Providers Care Online Health And Fitness Coach Name Role Phone Angélica Weber Pamela HECK - SUPPORT WORKER Primary Care Provider [phone] Allergies Active Allergy Reactions Criticality Noted Date [...] patient's age to complete this topic Insurance [facility] PL[facility] Advance Directives * Full Code (Latest Code Status on File) Date Activated Date Inactivated Comments 10/19/2021 12:27 PM 10/20/2021 4:12 PM * Full Code Date Activated Date Inactivated Comments 10/19/2021 12:23 PM 10/19/2021 12:27 PM Care Teams Online Health And Fitness Coach Relationship Specialty Start Date End Date Angélica Weber, FIGHTING VEHICLE INFANTRYMAN - SUPPORT WORKER [address] [place] [place] [address] PCP - General Nurse Practitioner 12/24/20
--- OUTSIDE RECORDS SUMMARY | 2024-09-23 20:55 | XMS_ITS | Clinical Summary ---
Author Organization [employer] [facility] Address [id number] [address] [place] [address] Care Team Providers Care Radio Division Officer Name Role Phone Corine Gold MD Primary Care Provider [phone] Allergies Active Allergy Reactions Criticality Noted Date [...] 08/26/2024 Telephone [facility] Pulmonary/Sleep Medicine [address] [address] Mariah Peña DO 08/26/2024 Orders Only [facility] Family Medicine [address] [place] [address] [place] [address] Mali Hart APRN-CNP Allergic reaction, sequela (Primary Dx) 07/24/2024 3:00 PM EDT Office Visit [facility] [address] [place] [address] [place] [address] Halima Johns APRN-CNP Eye infection, [...] drink = 0.6 oz pur e alcohol) [employer] Answer Date Recorded In the past 12 months has [employer], gas, oil, or water [employer] threatened to shut off services in your [...] 07/24/2024 3:07 PM EDT Plan of Treatment Upcoming Encounters Date Type Department Care Team (Late st Contact Info) Description 12/17/2024 9:30 AM EDT Office Visit [facility] Pul[facility]Sleep Medicine [address] [address] Mariah Peña DO [address] [address] Health Maintenance Due Date Last Done Comments [...] on file Insurance [place] [id number] Advance Directives * Full Code (Latest Code Status on File) Date Activated Date Inactivated Comments 03/28/2024 2:56 PM 03/28/2024 8:49 PM Care Teams Radio Division Officer Relationship Specialty Start Date End Date Corine Gold MD [address], [place] [address] PCP - General Internal Medicine 03/25/24
--- OUTSIDE RECORDS SUMMARY | 2024-09-23 20:55 | XMS_ITS | Encounter Summary ---
Author Organization [facility] Address [address] [place] [address] Care Team Providers Care Metal Bending Machine Operator Name Role Phone Abdifatah Brady (Historical) Primary Care Provide r Unavailable Source Comments In the event this information is protected by the Federal Confidentiality of Alcohol and Drug AbusePatient Records regulations: The Federal rules restrict any use of the information to criminally investigate or prosecute any alcohol or drug abuse patient.[facility] Encounter Details Date Type Department Care Team (Latest Contact Info) Description 09/23/2024 Travel Social History Tobacco Use Types Packs/Day Years Used Date Smoking Tobacco: Never Smokeless Tobacco: Never PHQ-2 Answer Date Recorded PHQ-2 score 2 09/23/2024 Area Deprivation Index Answer Date Zi rded National Score (1-100), lower number is lower ri sk 94 06/23/2022 State Score (1-10), lower number is lower risk 9 06/23/2022 Data from: https://www.neighborhoodatlas.medicine.[facility].edu/. Last address used for calculation [address] [facility] 06/23/2022 Comments No Sex and Gender Information [...] Entry Date Author No 04/01/2022 6:20 PM Pamlea Florez RN documented in this encounter Plan of Treatment Upcoming Encounters Date Type Department Care Team (Latest Contact Info) Description 09/24/2024 10:00 AM EDT [facility] Neurology [address] [phone] Griffin Lepe PA-C [address] [place] [address] Head ache control 10/25/2024 1:30 PM EDT Infusion Center Neurology [address] [phone] Vyepti 12/04/2024 3:20 PM EDT Office Visit Neurology [address] [phone] Tyrone Dolan MD, PhD [address] [facility] [address] [place] [address] Headache/ concerns about pots syndrome documented as of this encounter Visit Diagnoses Not on filedocumented in this encounter Care Teams Metal Bending Machine Operator Relationship Specialty Start Date End Date Abdifatah Brady (Historical) PCP - General 05/21/13 documented as of this encounter
--- OUTSIDE RECORDS SUMMARY | 2024-09-23 20:55 | XMS_ITS | Encounter Summary ---
Author Organization [facility] Address [id number] [address] [place] [address] Care Team Providers Care Care Rep Name Role Phone Corine Gold MD Primary Care Provider [phone] Encounter Details Date Type Department Care Team (Late st Contact Info) Description 12/22/2020 Telephone [facility] Neurology [address] [place] [address] Aide Smalls RN Social History [...] be great. My pharmacy is [facility] [place] Please reply to this message by electronic messaging. ----- Message ----- From:SARAHI Powell Sent:11/12/2020 10:03 AM EDT To:Coni Nicholson Subject:RE: Visit Follow-Up Question Hi Coni I call call you in some oral Toradol and would you like a steroid dose pack also? Yes the injections were approved. Please verify your pharmacy Karla HECK ----- Message ----- From:Coni Nicholson Sent:11/11/2020 7:23 PM EDT To:Ivy Zafar, AUDIOVISUAL PRODUCTION SPECIALIST-PANEL INSTALLER Subject:Visit Follow-Up Question Good afternoon Anyway you [...] Office Visit [facility] Pulmonary/Sleep Medicine [address] [address] Mariah Peña DO [address] [address] documented as of this encounter Visit Diagnoses Not on filedocumented in this encounter Additional Health Concerns Infection Onset Date Last Indicated Resolved Time Enteric Rule-Out 02/10/2024 02/10/2024 02/10/2024 4:50 AM EST COVID-19 Rule-Out 02/10/2024 02/09/2024 02/10/2024 3:36 AM EST Assessment Noted Time PHQ-9 Depression Total Score: 14 03/17/2 021 1:59 PM EDT documented as of this encounter Care Teams Care Rep Relationship Specialty Start Date End Date Corine Gold MD [address] [place] [address] PCP - General Internal Medicine 03/25/24 documented as of this encounter
--- OUTSIDE RECORDS SUMMARY | 2024-09-23 20:55 | XMS_ITS | Encounter Summary ---
Author Organization [facility] Address [address] [place] [address] Care Team Providers Care Rn Clinician Name Role Phone Abdifatah Brady (Historical) Primary Care Provide r Unavailable Source Comments In the event this information is protected by the Federal Confidentiality of Alcohol and Drug AbusePatient Records regulations: The Federal rules restrict any use of the information to criminally investigate or prosecute any alcohol or drug abuse patient.[facility] Encounter Details Date Type Department Care Team (Late st Contact Info) Description 01/16/2024 Telephone Neurology Headache [facility] [address] [place] [address] Sagar Barth APRN.DIRECTOR OF SALES AND MARKETING [address] [place], [place] [phone] Social History Tobacco Use Types Packs/Day Years Used Date Smoking Tobacco: Never Smokeless Tobacco: Never PHQ-2 Answer Date Recorded PHQ-2 score 3 01/17/2024 Area Deprivation Index Answer Date Zi rded National Score (1-100), lower number is lower ri sk 94 06/23/2022 State Score (1-10), lower number is lower risk 9 06/23/2022 Data from: https://www.neighborhoodatlas.medicine.[facility].edu/. Last address used for calculation [address] [...] Givens RN - 01/16/2024 12:03 PM EST [employer] message sent to provider who saw patient last (Ольга Shabazz APRN.CNP). Providers message pool is handing message. * Telephone Encounter - Bonnie Rodriguez - 01/16/2024 11:50 AM EST Name of Caller: Coni Relationship to patient: patient Last visit in this department: 09/19/2023 Reason for Call: Other : Pt asking if you would read the [employer] message and respond back to her tanner. Thanks Callback number: [phone] documented in this encounter Plan of Treatment Upcoming Encounters Date Type Department Care Team (Latest Contact Info) Description 09/24/2024 10:00 AM EDT [facility] Neurology [address] [place], [place] [phone] Griffin Lepe PA-C [address] [place], [place] [phone] Head ache control 10/25/2024 1:30 PM EDT Infusion Center Neurology [address] [place] [address] Vyepti 12/04/2024 3:20 PM EDT Office Visit Neurology [address] [place], [place] [phone] Tyrone Dolan MD, PhD [address] [facility] [address] [place], [place] [phone] Headache/ concerns about pots syndrome documented as of this encounter Visit Diagnoses Not on filedocumented in this encounter Care Teams Rn Clinician Relationship Specialty Start Date End Date Abdifatah Brady (Historical) PCP - General 05/21/13 documented as of this encounter
--- OUTSIDE RECORDS SUMMARY | 2024-09-23 20:55 | XMS_ITS | Encounter Summary ---
Author Organization [facility] Address [id number] [address] [place] [address] Care Team Providers Care Carrot Harvester Name Role Phone Corine Gold MD Primary Care Provider [phone] Encounter Details Date Type Department Care Team (Late st Contact Info) Description 05/23/2022 Refill [facility] Internal Medicine - Family Medicine [address] [place] [address] Irlanda Graham CMA Moderate persistent [...] Office Visit [facility] Pulmonary/Sleep Medicine [address] [phone] Mariah Peña DO [address] [address] documented as of this encounter Visit Diagnoses [...] documented as of this encounter Care Teams Carrot Harvester Relationship Specialty Start Date End Date Corine Gold MD [address] [facility] [place] [address] PCP - General Internal Medicine 03/25/24 documented as of this encounter
--- OUTSIDE RECORDS SUMMARY | 2024-09-23 20:55 | XMS_ITS | Encounter Summary ---
Author Organization [facility] Address [facility]-[id number] [address] [place] [address] Care Team Providers Care Manager Product Management Name Role Phone Corine Gold MD Primary Care Provider [phone] Encounter Details Date Type Department Care Team (Late st Contact Info) Description 05/19/2022 Telephone [facility] Internal Medicine - Family Medicine [address] [place] [phone] Alba Guadalupe, GRAPPLE CREW LEADER-AFFILIATE MANAGER [address] [place] [address] Social History Tobacco Use Types Packs/Day Years [...] Office Visit [facility] Pulmonary/Sleep Medicine [address] [phone] Mariah Peña DO [address] [address] documented as of this encounter Visit Diagnoses Not on filedocumented in this encounter Additional Health Concerns Infection Onset Date Last Indicated Resolved Time Enteric Rule-Out 02/10/2024 02/10/2024 02/10/2024 4:50 AM EST COVID-19 Rule-Out 02/10/2024 02/09/2024 02/10/2024 3:36 AM EST Assessment Noted Time PHQ-9 Depression Total Score: 0 03/03/19 1:33 PM EST documented as of this encounter Care Teams Manager Product Management Relationship Specialty Start Date End Date Corine Gold MD [address] [facility] [address] [place], [place] [phone] PCP - General Internal Medicine 03/25/24 documented as of this encounter
--- OUTSIDE RECORDS SUMMARY | 2024-09-23 20:55 | XMS_ITS | Encounter Summary ---
Author Organization [facility] Address [address] [place] [address] Care Team Providers Care Stonemason Supervisor Name Role Phone Abdifatah Brady (Historical) Primary Care Provide r Unavailable Source Comments In the event this information is protected by the Federal Confidentiality of Alcohol and Drug AbusePatient Records regulations: The Federal rules restrict any use of the information to criminally investigate or prosecute any alcohol or drug abuse patient.[facility] Encounter Details Date Type Department Care Team (Late st Contact Info) Description 06/12/2024 Patient Msg Neurology [address] [phone] Provider, Ccf Know Your Triggers, Own Your [...] is lower risk 9 06/23/2022 Data from: https://www.neighborhoodatlas.[facility]/. Last address used for calculation Josr [...] Info) Description 09/24/2024 10:00 AM EDT [facility] Neurology [address] [place], [place] [phone] Griffin Lepe PA-C [address] [place] [address] Head ache control 10/25/2024 1:30 PM EDT Infusion Center Neurology [address] [place] [address] Vyepti 12/04/2024 3:20 PM EDT Office Visit Neurology [address] [phone] Tyrone Dolan MD, PhD [address] [facility] [address] [place], [place] [phone] Headache/ concerns about pots syndrome documented as of this encounter Visit Diagnoses Not on filedocumented in this encounter Care Teams Stonemason Supervisor Relationship Specialty Start Date End Date Abdifatah Brady (Historical) PCP - General 05/21/13 documented as of this encounter
--- OUTSIDE RECORDS SUMMARY | 2024-09-23 20:55 | XMS_ITS | Encounter Summary ---
Author Organization [facility] Address [address] [place] [address] Care Team Providers Care Forensic Engineer Name Role Phone Abdifatah Brady (Historical) Primary Care Provide r Unavailable Source Comments In the event this information is protected by the Federal Confidentiality of Alcohol and Drug AbusePatient Records regulations: The Federal rules restrict any use of the information to criminally investigate or prosecute any alcohol or drug abuse patient.[facility] Encounter Details Date Type Department Care Team (Late st Contact Info) Description 03/29/2024 Patient Msg Neurology [address] [phone] Provider, Ccporsche A Message from the Center [...] is lower risk 9 06/23/2022 Data from: https://www.neighborhoodatlas.[facility]/. Last address used for calculation Josr [...] Contact Info) Description 09/24/2024 10:00 AM EDT [facility] Neurology [address] [place], [place] [phone] Griffin Lepe PA-C [address] [place] [address] Head ache control 10/25/2024 1:30 PM EDT Infusion Center Neurology [address] [place] [address] Vyepti 12/04/2024 3:20 PM EDT Office Visit Neurology [address] [phone] Tyrone Dolan MD, PhD [address] [facility] [address] [place] [address] Headache/ concerns about pots syndrome documented as of this encounter Visit Diagnoses Not on filedocumented in this encounter Care Teams Forensic Engineer Relationship Specialty Start Date End Date Abdifatah Brady (Historical) PCP - General 05/21/13 documented as of this encounter
--- OUTSIDE RECORDS SUMMARY | 2024-09-23 20:55 | XMS_ITS | Encounter Summary ---
Author Organization [facility] Address [facility] [place] [address] Care Team Providers Care Crm Functional Analyst Name Role Phone Abdifatah Brady (Historical) Primary Care Provide r Unavailable Source Comments In the event this information is protected by the Federal Confidentiality of Alcohol and Drug AbusePatient Records regulations: The Federal rules restrict any use of the information to criminally investigate or prosecute any alcohol or drug abuse patient.[facility] Encounter Details Date Type Department Care Team (Late st Contact Info) Description 06/08/2022 Get Medical Advice Neurology [address] [place] [address] Jesse Borrego MD [address] [place] [address] Migraines Social History Tobacco Use Types Packs/Day Years Used Date Smoking Tobacco: Never Assessed PHQ-2 Answer Date Recorded PHQ-2 score 4 10/29/2021 Area Deprivation Index Answer Date Zi rded National Score (1-100), lower number is lower ri sk 88 03/08/2022 State Score (1-10), lower number is lower risk N ot on file 03/08/2022 Data from: https://www.neighborhoodatlas.medicine.[facility]/. Last address used for calculation [...] Contact Info) Description 09/24/2024 10:00 AM EDT [facility] Neurology [address] [place] [address] Griffin Lepe PA-C [address] [place] [address] Head ache control 10/25/2024 1:30 PM EDT Infusion Center Neurology [address] [place] [address] Vyepti 12/04/2024 3:20 PM EDT Office Visit Neurology [address] [phone] Tyrone Dolan MD, PhD [address] [facility] [address] [place] [address] Headache/ concerns about pots syndrome documented as of this encounter Visit Diagnoses Not on filedocumented in this encounter Care Teams Crm Functional Analyst Relationship Specialty Start Date End Date Abdifatah Brady (Historical) PCP - General 05/21/13 documented as of this encounter
--- OUTSIDE RECORDS SUMMARY | 2024-09-23 20:55 | XMS_ITS | Encounter Summary ---
Author Organization [facility] Address [id number] [address] [place] [address] Care Team Providers Care Phlebotomist Lab Assistant Name Role Phone Corine Gold MD Primary Care Provider [phone] Encounter Details Date Type Department Care Team (Late st Contact Info) Description 08/18/2021 Telephone [facility] Neurology [address] [place] [address] Suzan Cason RN Social History [...] PM EDT PA has been sent into [place] [facility] plan for ONB and TPI's. documented in this encounter Plan of Treatment Upcoming Encounters Date Type Department Care Team (Late st Contact Info) Description 12/17/2024 9:30 AM EDT Office Visit [facility] Pulmonary/Sleep Medicine [address] [address] Mariah Peña DO [address] [address] documented as of this encounter Visit Diagnoses Not on filedocumented in this encounter Additional Health Concerns Infection Onset Date Last Indicated Resolved Time Enteric Rule-Out 02/10/2024 02/10/2024 02/10/2024 4:50 AM EST COVID-19 Rule-Out 02/10/2024 02/09/2024 02/10/2024 3:36 AM EST Assessment Noted Time PHQ-9 Depression Total Score: 14 021 1:59 PM EDT documented as of this encounter Care Teams Phlebotomist Lab Assistant Relationship Specialty Start Date End Date Corine Gold MD [address], [place] [address] PCP - General Internal Medicine 03/25/24 documented as of this encounter
--- OUTSIDE RECORDS SUMMARY | 2024-09-23 20:55 | XMS_ITS | Encounter Summary ---
Author Organization [facility] Address [address] [place] [address] Care Team Providers Care Maintenance Service Technician Name Role Phone Abdifatah Brady (Historical) Primary Care Provide r Unavailable Source Comments In the event this information is protected by the Federal Confidentiality of Alcohol and Drug AbusePatient Records regulations: The Federal rules restrict any use of the information to criminally investigate or prosecute any alcohol or drug abuse patient.[facility] Encounter Details Date Type Department Care Team (Late st Contact Info) Description 05/10/2024 Patient Msg Neurology [address] [place] [address] Griffin Lepe PA-C [address] [place] [address] Appointment follow-up Social History Tobacco Use Types Packs/Day Years Used Date Smoking Tobacco: Never Smokeless Tobacco: Never PHQ-2 Answer Date Recorded PHQ-2 score 2 05/03/2024 Area Deprivation Index Answer Date Zi rded National Score (1-100), lower number is lower ri sk 94 06/23/2022 State Score (1-10), lower number is lower risk 9 06/23/2022 Data from: https://www.neighborhoodatlas.medicine.[facility]/. Last address used for calculation [address] [...] Contact Info) Description 09/24/2024 10:00 AM EDT [facility] Neurology [address] [place] [address] Griffin Lepe PA-C [address] [place] [address] Head ache control 10/25/2024 1:30 PM EDT [facility] [address] [place] [address] [facility] 12/04/2024 3:20 PM EDT Office Visit Neurology [address] [place] [id number] Tyrone Dolan MD, PhD [address] [facility] [address] [place] [address] Headache/ concerns about pots syndrome documented as of this encounter Visit Diagnoses Not on filedocumented in this encounter Care Teams Maintenance Service Technician Relationship Specialty Start Date End Date Abdifatah Brady (Historical) PCP - General 05/21/13 documented as of this encounter
--- OUTSIDE RECORDS SUMMARY | 2024-09-23 20:55 | XMS_ITS | Encounter Summary ---
Author Organization [facility] Address [address] [place] [address] Care Team Providers Care Manager Systems Name Role Phone Abdifatah Brady (Historical) Primary Care Provide r Unavailable Source Comments In the event this information is protected by the Federal Confidentiality of Alcohol and Drug AbusePatient Records regulations: The Federal rules restrict any use of the information to criminally investigate or prosecute any alcohol or drug abuse patient.[facility] Encounter Details Date Type Department Care Team (Late st Contact Info) Description 01/16/2024 Patient Msg Neurology [address] [place] [id number] Provider, [facility] Social History Tobacco Use Types Packs/Day Years Used Date Smoking Tobacco: Never Smokeless Tobacco: Never PHQ-2 Answer Date Recorded PHQ-2 score 3 01/17/2024 Area Deprivation Index Answer Date Zi rded National Score (1-100), lower number is lower ri sk 94 06/23/2022 State Score (1-10), lower number is lower risk 9 06/23/2022 Data from: https://www.neighborhoodatlas.[facility]/. Last address used for calculation [address] [...] Contact Info) Description 09/24/2024 10:00 AM EDT [facility] Neurology [address] [place] [address] Griffin Lepe PA-C [address] [place] [address] Head ache control 10/25/2024 1:30 PM EDT [facility] [address] [facility] [place] [address] [facility] 12/04/2024 3:20 PM EDT Office Visit Neurology [address] [place] [address] Tyrone Dolan MD, PhD [address] [facility] [address] [place] [id number] Headache/ concerns about pots syndrome documented as of this encounter Visit Diagnoses Not on filedocumented in this encounter Care Teams Manager Systems Relationship Specialty Start Date End Date Abdifatah Brady (Historical) PCP - General 05/21/13 documented as of this encounter
--- OUTSIDE RECORDS SUMMARY | 2024-09-23 20:55 | XMS_ITS | Encounter Summary ---
Author Organization [facility] Address [address] [place] [address], [address] [place] [address] Care Team Providers Care Fifth Hand Name Role Phone RandellAngélica rick Pamela Tang CNP Primary Care Provider [phone] Reason for Referral * Other (Routine) - Closed Specialty Diagnoses / Procedures Referred By Contselena t Referred To Contact Diagnoses Moderate persistent asthma with exacerbation Procedures Full PFT Study With Bronchodilator Alba Guadalupe APRN - CNP [address] [place] [address] Phone: tel: fax: Referral ID Status Reason Start Date Expiration Date Visits Re quested Visits Authorized [id number] Closed 03/08/2022 03/08/2023 1 1 Encounter Details Date Type Department Care Team (Late st Contact Info) Description 03/08/2022 Transcribe Orders [facility] [address] [place] [id number] Alba Guadalupe APRN - CNP [address] [place] [address] Moderate persistent asthma with exacerbation [...] exacerbation documented in this encounter Care Teams Fifth Hand Relationship Specialty Start Date End Date Angélica Weber, REGULATOR OPERATOR - DRAGLINE ENGINEER [address] [place] [address] PCP - General Nurse Practitioner 12/24/20 documented as of this encounter
[2024-09-23 21:39] LABS: Hematocrit 34.6 % (36.0-48.0); Hemoglobin 11.8 g/dL (12.0-16.0); Immature Granulocytes Abs Auto 0.04 10^3/uL (0.00-0.03); Immature Granulocytes Pct Auto 0.8 % (0.0-0.5); Lymphocytes Absolute Auto 1.4 10^3/uL (1.2-3.8); Mean Corpuscular HGB Conc 34.1 g/dL (29.9-35.2); Mean Corpuscular Hemoglobin 29.2 pg (26.7-34.0); Mean Corpuscular Volume 85.6 fL (81.0-99.0); Platelet Count 230 10^3/uL (150-450); Red Blood Count 4.04 10^6/uL (4.20-5.40); White Blood Count 4.9 10^3/uL (4.0-11.0)
[2024-09-23 21:49] LABS: Anion Gap 12.3; Blood Urea Nitrogen 18.0 mg/dL (7.0-18.0); Calcium 8.5 mg/dL (8.5-10.1); Carbon Dioxide 26.6 mmol/L (21.0-32.0); Chloride 105 mmol/L (98-107); Estimated GFR (African America >60 (>=60 mL/min/1.73m^2); Estimated GFR (Non-African Ame >60 (>=60 mL/min/1.73m^2); Glucose 110 mg/dL (74-106); Potassium 3.9 mmol/L (3.5-5.1); Sodium 140 mmol/L (136-145)
[2024-09-23] MEDS: DIPHENHYDRAMINE HCL 50 MG/ML VIAL 25 MG IVP (22:01)
[2024-09-23] MEDS: METHYLPREDNISOLONE SOD SUCC PF 125 MG/2 ML VIAL IVP (22:02)
[2024-09-23] MEDS: KETOROLAC TROMETHAMINE 30 MG/ML VIAL IVP (22:02)
[2024-09-23] MEDS: 0.9 % SODIUM CHLORIDE 1,000 ML 1000 ML IV (22:44)
--- NOTE | 2024-09-23 23:50 | PC.NURSE ---
this patient awake and alert lying on the bed, patient complains of iv hurting. i flushed with 10 ml of 0.9 ns with any difficulty. plus no visible signs of infiltration to this iv site i informed patient that we are still waiting in ct results to come back
[2024-09-24] MEDS: AMOXICILLIN 500 MG CAPSULE PO (00:17)
--- NOTE | 2024-09-24 00:24 | PC.NURSE ---
i gave this patient verbal and written discharge orders along with 1 e-script and this patient voices yes to understanding these. at time of discharge this patient voices no concerns, needs and shows no signs of distress
== END 2024-09-24 00:19 | disposition home or self-care (01) ==
PROVIDERS: Emergency Provider Emergency Medicine; PCP Student in an Organized Health Care Education/Training Program
DX: J01.10 Acute frontal sinusitis, unspecified (principal); Z90.710 Acquired absence of both cervix and uterus; Z90.722 Acquired absence of ovaries, bilateral; Z90.79 Acquired absence of other genital organ(s); Z90.49 Acquired absence of other specified parts of digestive tract
CPT/HCPCS: 36415; 70450; 80048; 85025; 93005; 96374; 96375; 99285; J1200; J1885; J2919

== ENCOUNTER 2024-12-01 03:38 | Emergency (ER) | payer OTHER, SELFPAY ==
--- OUTSIDE RECORDS SUMMARY | 2024-11-24 17:31 | XMS_ITS | Encounter Summary ---
Author Organization [facility] tem Address [id number] [address] [place] [address] Care Team Providers Care Archivist Name Role Phone Corine Gold MD Primary Care Provider [phone] Reason for Visit * Reason Comments Seizure - Prior Hx Of Headache - Recurrent Or Known Dx Migrain es Encounter Details Date Type Department Care Team (Late st Contact Info) Description 11/24/2024 5:31 PM EDT - 11/25/2024 2:16 AM EDT Emergency [facility] - Emergency Department [address] [place] [address] Cecilio Grant DO [address] [place] [address] Nonintractable headache, unspecified chronicity pattern, unspecified headache type (Primary Dx) Discharge Disposition: Home Social History Tobacco Use Types Packs/Day Years Used Date Smoking Tobacco: Never Smokeless Tobacco: Never Alcohol Use Standard Drinks/Week Comments Not Currently 0 (1 standard drink = 0.6 oz pur e alcohol) social [facility] Utilities Answer Date Recorded In the past 12 months has [employer], gas, oil, or water company threatened to shut off services in your [...] got money to buy more. Never True 11/24/2024 Within the past 12 months th e food we bought just didn't last and we didn't have money to get more. Never True 11/24/2024 Purpose - Life Answer Date Recorded Purpose and direction in life Unknown Comments No Sex and Gender Information Value Date Recorded Sex Assigned at Not on file Legal Sex Female 11:52 AM EDT Gender Identity Not on file Sexual Orientation Not on file documented as of this encounter Last Filed Vital Signs Vital Sign Reading Time Taken Comments Blood Pressure 112/70 11/25/2024 2:07 AM EDT Pulse 78 11/25/2024 2:07 AM EDT Temperature 36.5 C (97.7 F) 11/24/2024 4:47 PM EDT Respiratory Rate 16 11/25/2024 2:07 AM EDT Oxygen Saturation 98% 11/25/2024 2:07 AM EDT Inhaled Oxygen Concentration - - Weight 122.5 kg (270 lb) 11/24/2024 4:47 PM EDT Height 154.9 cm (5' 1 ) 11/24/2024 4:47 PM EDT Body Mass Index 51.02 11/24/2024 4:47 PM EDT documented in this encounter Discharge Instructions * Discharge Instructions* Krystle Woodward DO - 11/25/2024 1:55 AM EDT You were seen in the ER for headache and seizures. Please follow up with your neurologist. I also sent a prescription to increase your Tegretol to 200 b.i.d.. * Attachments The following attachments cannot be sent through Care Everywhere. * Headache in adults ??? ED discharge instructions (Kyrgyz) documented in this encounter Medications at Time of Discharge acetaminophen (TYLENOL EXTRA STRENGTH) 500 mg tablet Take 2 tablets (1,000 mg total) by mouth every 6 (six) hours as needed for pain. 30 tablet 2 03/28/2024 albuterol (PROVENTIL,VENTOL IN) 2.5 mg /3 mL (0.083 %) nebulizer solutionIndicatio ns:Moderate asthma with acute exacerbation, unspecified whether persistent Inhale 3 mL (2.5 mg total) by nebulization 4 (four) times a day as needed for wheezing. 360 mL 10 03/20/2024 albuterol (VENTOLIN HFA) 90 mcg/actuation inhalerIndication s:Moderate persistent asthma, unspecified whether complicated INHALE TWO PUFFS BY MOUTH EVERY 4 HOURS NEEDED 18 g 11 09/30/2024 baclofen (LIORESAL) 10 mg tabletIndications :Muscle spasm TAKE 1 TABLET BY MOUTH NIGHTLY 30 tablet 3 10/02/2024 carBAMazepine XR (TEGretol XR) 100 mg 12 hr tablet Take 2 tablets (200 mg total) by mouth in the morning and 2 tablets (200 mg total) before bedtime. 120 tablet 11/25/2024 cetirizine (ZyrTEC) 10 mg tablet Take 1 tablet (10 mg total) by mouth in the morning. 30 tablet 06/08/2022 diazePAM (VALIUM) 10 mg tablet Take 0.5 tablets (5 mg total) by mouth in the morning and at bedtime. EPINEPHrine (EPIPEN) 0.3 mg/0.3 mL auto-injectorIndi cations:Allergic reaction, sequela 0.3 mL (0.3 mg total) by other route as needed (exposure to allergen). 2 each 1 08/26/2024 estradioL (ESTRACE) 1 mg tabletIndications :Menopausal symptoms Take 1 tablet (1 mg total) by mouth in the morning. 30 tablet 3 05/15/2024 fluticasone propionate (FLONASE) 50 mcg/actuation nasal sprayIndications: Seasonal allergic rhinitis, unspecified trigger administer 1 spray IN EACH NOSTRIL EVERY OTHER DAY 16 g 2 06/10/2024 fluticasone-umecl idin-vilanter (TRELEGY ELLIPTA) 200-62.5-25 mcg blister with deviceIndications :Moderate asthma with acute exacerbation, unspecified whether persistent Inhale 1 puff in the morning. 60 each 11 03/20/2024 ibuprofen (MOTRIN) 800 mg tabletIndications :Post-op pain Take 1 tablet (800 mg total) by mouth 3 (three) times a day. 21 tablet 04/15/2024 ketoconazole (NIZORAL) 2 % shampoo Apply 1 Application topically 2 (two) times a week. Apply to damp skin, lather, leave on 5 minutes, and rinse 120 mL 04/25/2024 lidocaine (XYLOCAINE) 5 % ointmentIndicatio ns:Post-operative pain Apply 1 Application topically as needed for pain. 35.44 g 04/24/2024 lithium carbonate 300 mg tablet Take 2 tablets (600 mg total) by mouth nightly. 01/17/2022 loratadine (CLARITIN) 10 mg tabletIndications :Seasonal allergic rhinitis, unspecified trigger Take 1 tablet (10 mg total) by mouth daily as needed for allergies. 90 tablet 1 06/06/2024 mupirocin (BACTROBAN) 2 % ointmentIndicatio ns:Eye infection, bilateral Apply 1 Application topically in the morning and 1 Application before bedtime. 22 g 1 07/24/2024 scopolamine (TRANSDERM-SCOP) 1 mg/[address] 1 patch on the skin every third day. 05/10/2024 traZODone (DESYREL) 300 MG tablet Take 1 tablet (300 mg total) by mouth nightly. 03/14/2024 ubrogepant (UBRELVY) 100 mg tablet 05/03/2024 documented as of this encounter Consult Notes * Colton Jamil MD - 11/24/2024 6:46 PM EDTAssociated Order(s): IP CONSULT TO NEUROLOGY Images from the original note were not included. [facility] Neurology General Neurology Consultation Note Consult Neurology Service: [phone] Primary Team: ED Chief Complaint and Reason for Consultation: Migraine and seizure-like activity History: Coni Nicholson is a 29 y.o. year old female for whom Neurology was consulted for chief complaint of seizures and migraines. She has a very well documented history of psychogenic nonepileptic seizures with multiple EEG captured events at [facility] and other hospitals without electrographic correlates. Episodes were described as having various semiology, but the most common appears to be whole-body shaking spells with her eyes open or close. Additional episodes were described as jaw movements, writhing hand movements, head bobbing, kvkx-hq-ipzw head movement, and nonrhythmic hand flapping. Today, she reports that she has had her typical migraine for the past 1 week. She states that it isbifrontal throbbing sensation with associated photophobia, phonophobia, nausea, and vomiting. She has attempted to take her abortive medication, however, she keeps vomiting so the medication is not being absorbed. Additionally, she had several of her typical seizure events the day of presentation. Her describes these events as generalized shaking with her eyes closed. She has a past medical history significant for anxiety, depression, bipolar disorder, PTSD, asthma,and migraines. She takes Tegretol ER 100 mg b.i.d. per documentation but she states that it was recently increased a month ago to 150 mg b.i.d.. Subjective Past Medical History/Surgical History: Active Ambulatory Problems Diagnosis Date Noted Encounter for observation of suspected anomaly not found 06/04/2019 Migraine with aura and without status migrainosus, not intractable 08/06/2021 Bilateral occipital neuralgia 08/06/2021 Asthma without status asthmaticus 12/29/2021 Anxiety 12/29/2021 Depressive disorder 12/29/2021 Psychogenic nonepileptic seizure 10/20/2021 Acute cough 01/27/2022 S/P bilateral salpingo-oophorectomy 03/28/2024 Abdominal wall cellulitis 04/08/2024 Postoperative surgical complication involving genitourinary system associated with genitourinary procedure 04/08/2024 Chronic migraine without aura without status migrainosus, not intractable 01/24/2023 Mild persistent asthma with (acute) exacerbation 01/24/2023 Polycystic ovaries 01/24/2023 Eye infection, bilateral 07/24/2024 Ingrown nail of great toe 07/24/2024 Resolved Ambulatory Problems Diagnosis Date Noted [place] of consciousness) [place] 08/06/2021 Seizure-like activity ([facility] 10/19/2021 Simple partial seizure disorder ([facility] 02/18/2020 Past Medical History: Diagnosis Date Asthma BV (bacterial vaginosis) Depression Migraine MRSA (methicillin resistant Staphylococcus aureus) Ovarian cyst, bilateral 03/25/2024 Prolonged emergence from general anesthesia Seizure ([facility] Family History: Family History Problem Relation Age of Onset Anesthesia problems Mother Prolonged emergence Cystic fibrosis Mother Anesthesia problems Father prolonged emergence Cystic fibrosis Father Ovarian cancer Maternal Aunt Social History: Social History Socioeconomic History Marital status: Single [...] at all Food Insecurity: No Food Insecurity (11/24/2024) Hunger Screening Food Insecurity - Worry: Never True Food Insecurity - Inability: Never True Transportation Needs: No Transportation Needs (04/08/2024) PRAPARE - Transportation Lack of Transportation (Medical): No Lack of Transportation (Non-Medical): No Physical Activity: Insufficiently Active (01/23/2024) Received from [facility] Exercise Vital Sign Days of Exercise per Week: 7 days Minutes of Exercise per Session: 10 min Stress: Stress Concern Present (01/23/2024) Received from [facility] [place] [facility] - Occupational Stress Questionnaire Feeling of Stress : Rather much Social Connections: Socially Integrated (01/23/2024) Received from [facility] Social Connection and Isolation Panel [NHANES] Frequency of Communication with Friends and Family: More than three times a week Frequency of Social Gatherings with Friends and Family: Twice a week Attends Confucianism Services: More than 4 times per year [...] Risk (04/08/2024) Housing Instability Housing Instability: No Medications: Current Facility-Administered Medications: acetaminophen (OFIRMEV) IVPB Premix 1,000 mg, 1,000 mg, intravenous, Once, Cecilio Grant DO diazePAM (VALIUM) tablet 5 mg, 5 mg, oral, BID, George Pisano MD LORazepam (ATIVAN) injection 1 mg, 1 mg, intravenous, Q4H PRN, Brandon Beard MD, 1 mg at 11/24/241833 sodium chloride 0.9 % bolus, 1,000 mL, intravenous, Once, Cecilio Grant DO sodium chloride 0.9 % bolus, 1,000 mL, intravenous, Once, Brandon Beard MD Current Outpatient Medications: acetaminophen (TYLENOL EXTRA [...] 4 HOURS NEEDED, Disp: 18 g, Rfl: 11 baclofen (LIORESAL) 10 mg tablet, TAKE 1 TABLET BY MOUTH NIGHTLY, Disp: 30 tablet, Rfl: 3 cetirizine (ZyrTEC) 10 mg tablet, Take 1 tablet (10 mg total) by mouth in the morning., Disp: 30 tablet, Rfl: 0 diazePAM (VALIUM) 10 mg tablet, Take 0.5 tablets (5 mg total) by mouth in the morning and at bedtime., Disp: , Rfl: EPINEPHrine (EPIPEN) 0.3 mg/0.3 mL auto-injector, 0.3 mL (0.3 mg total) by other route as needed (exposure to allergen)., Disp: 2 each, Rfl: 1 estradioL (ESTRACE) 1 mg tablet, Take 1 tablet (1 mg total) by mouth in the morning., Disp: 30 tablet, Rfl: 3 fluticasone propionate (FLONASE) 50 mcg/actuation nasal spray, administer 1 spray IN EACH NOSTRIL EVERY OTHER DAY, Disp: 16 g, Rfl: 2 qqmdleahcrv-tnhijhsfy-bsnkyzdc (TRELEGY ELLIPTA) 200-62.5-25 mcg blister with device, Inhale 1 puffin the morning., Disp: 60 each, Rfl: 11 ibuprofen (MOTRIN) 800 mg tablet, Take 1 tablet (800 mg total) by mouth 3 (three) times a day., Disp: 21 tablet, Rfl: 0 ketoconazole (NIZORAL) 2 % shampoo, Apply 1 Application topically 2 (two) times a week. Apply to damp skin, lather, leave on 5 minutes, and rinse, Disp: 120 mL, Rfl: 0 lidocaine (XYLOCAINE) 5 % ointment, Apply 1 Application topically as needed for pain., Disp: 35.44 g, Rfl: 0 lithium carbonate 300 mg tablet, Take 2 tablets (600 mg total) by mouth nightly., Disp: , Rfl: loratadine (CLARITIN) 10 mg tablet, Take 1 tablet (10 mg total) by mouth daily as needed for allergies., Disp: 90 tablet, Rfl: 1 mupirocin (BACTROBAN) 2 % ointment, Apply 1 Application topically in the morning and 1 Application before bedtime., Disp: 22 g, Rfl: 1 scopolamine (TRANSDERM-SCOP) 1 mg/3 days, Place 1 patch on the skin every third day., Disp: , Rfl: traZODone (DESYREL) 300 MG tablet, Take 1 tablet (300 mg total) by mouth nightly., Disp: , Rfl: ubrogepant (UBRELVY) 100 mg tablet, , Disp: , Rfl: Allergies: Allergies Allergen Reactions Bee Venom Protein (Honey Bee) Anaphylaxis Adhesive Rash Dihydroergotamine GI Disturbance and Hives Other Reaction(s): Intolerance Chest tightness, numbness and tingling in bilateral extremities, increased anxiety Adhesive Tape-Silicones Carbamazepine Other (See Comments) anxiety Ciprofloxacin Hives Clindamycin Hives Dexamethasone Hives Dextromethorphan Hives Haldol [Haloperidol] Hallucinations Keflex [Cephalexin] Hives Levetiracetam Hives and Itching Metoclopramide Hives and Other (See Comments) Propranolol Hcl Hives and Other (See Comments) Migrianes Pyrilamine-Dextromethorphan Hives Vortioxetine Hives Zithromax [Azithromycin] Hives Buspirone Hives Compazine [Prochlorperazine] Anxiety Eptinezumab-Jjmr Itching and Rash Patient described extreme itching located on her chest and arms (bilaterally). Reglan [Metoclopramide Hcl] Itching and Anxiety No rash Complete Review of Systems: A complete review of systems was performed and was otherwise negative unless outlined in the HPI Physical Exam Vital Signs: Vitals: 11/24/24 1647 BP: 130/81 Pulse: 95 Resp: 18 Temp: 36.5 ??C (97.7 ??F) SpO2: 96% General: Normotensive, in no acute distress. Neurological Examination: Higher Mental Function: Somewhat lethargic upon examination Orientated to time, place, person Attention span and concentration intact Recent and Remote Memory Intact Language intact Fund of knowledge appropriate Cranial Nerve Examination: II: Normal tracking, no evidence of hemianopia or other visual field defect. III, IV, & : EOM intact, no ptosis, no nystagmus seen. Pupils are equal and reactive to light. V: Facial sensation is intact. VII: no facial asymmetry, facial movement intact. VIII: hearing is normal. IX-X: Palate elevates in the midline. XI: Normal trapezius strength and/or movement. XII: Tongue movement is normal, position is midline and no fasciculations are observed. Tongue strength intact. Motor: Power -- No focal motor weakness noted in BL upper or lower extremities. Bulk and muscle tone are intact in BL upper and lower extremities. No rigidity or spasticity. No atrophy or abnormal movements noted. No dystonia, or motor tics. No bradykinesia, postural or kinetic tremor noted. No fasciculation or myotonia noted. No abnormal movements noticed. No evidence of pseudo bulbar paralysis; no sialorrhea, difficulties swallowing. No tremors were noted Deep Tendon Reflexes: Right, Left: Biceps 2, 2 Brachioradialis 2, 2 Patellae 2, 2 Achilles 2, 2 Plantar response was flexor bilaterally. No clonus or other pathological reflexes elicited. Sensory examination: Diminished sensation to light touch in her right lower extremity, significant other states that this is typical after her seizure events. Cerebellar: Able to do [id number] bilaterally. Gait and station: Deferred Pertinent Labs: N/A Imaging: MRI brain with and without contrast (10/19/2021): Unremarkable Other Testing: Video EEG (10/20/2021): Normal continuous video EEG. No epileptiform discharges identified. Multiple events of moderate amplitude head shaking, [id number] and then variable with hand flapping captured with no electrographic correlate. Assessment: Coni Nicholson is a 29 y.o. female presenting to the emergency department for evaluation ofmigraines and seizures. She has a very well documented history of nonepileptic seizures. Impression: Seizure-like activity; likely secondary to psychogenic nonepileptic events. Status migrainosus Plan: Start migraine cocktails consisting of IV Ketoralac, Benadryl, magnesium, and ondansetron If patient has event, please contact Neurology Service. Do not give benzodiazepines or abortive medication until we have been notified and can assess the event. Increase Tegretol XR to 200 mg BID for better mood stabilization. If patient's migraine resolves, can be discharged from a neurological standpoint with the increaseddose of Tegretol. Colton Jamil MD PGY-3 Neurology Resident [facility] 11/24/24 Staffed with: Dr. Gamble This patient is being followed by the Neurology Resident service. Contact attending directly during these hours: Monday to 7:30-8:30 A.M. to Monday 12-1:00 p.m. Primary Neurology service: [phone] Consult neurology service: [phone] Resident Stroke Service: [phone] If the patient belongs to the Stroke [facility] service please contact the Stroke [facility] directly. Cosigned by Alba Gamble MD at 11/25/2024 2:50 PM EDT Associated attestation - Alba Gamble MD - 11/25/2024 2:50 PM EDT Alba Gamble MD Neurology documented in this encounter ED Notes * Shirlene Aleman RN - 11/24/2024 4:43 PM EDT Pt ambulatory with c/o seizures today now with migraine. Pt states she takes meds for seizures and has been being followed by neuro and has an upcoming appointment. States she had 5 seizures today with loss of bowel/ bladder. Was seen last week at hospital in [place] and was discharged. Pt denies hitting head or biting tongue. A&Ox4, states she is tired and nauseous documented in this encounter Plan of Treatment Upcoming Encounters Date Type Department Care Team (Late st Contact Info) Description 12/10/2024 2:30 PM EDT Office Visit [facility] [address] [place] [address] Corine Gold MD [address] [place] [address] 12/17/2024 9:30 AM EDT Office Visit [facility] [address] [address] Mariah Peña DO [address] [address] documented as of this encounter Goals Goal Patient Goal Type Associated Problems Recent Progress Patient-Stated? Author home General Yes Chanel, PRATIBHA Morrison Note: Evaluation of progress towards goal: Patient stated goal is to return home with [facility] for assistance with wound care documented as of this encounter Procedures Procedure Name Priority Date/Time Associated Diagnosis Comments CT BRAIN WO CONT STAT 11/24/2024 9:06 PM EDT ECG 12-LEAD STAT 11/24/2024 7:08 PM EDT CBC WITH AUTO DIFFERENTIAL STAT 11/24/2024 7:04 PM EDT COMPREHENSIVE METABOLIC PANEL STAT 11/24/2024 7:04 PM EDT documented in this encounter Results * CT brain without contrast (11/24/2024 9:06 PM EDT) Anatomical Region Laterality Modality Neuro, Head, Head and Neck, Neuro [place] N/A Computed Tomography 11/24/2024 10:1 7 PM EDT Narrative 11/24/2024 10:18 PM EDT EXAM: CT BRAIN WO CONT CLINICAL INFORMATION: Seizure. TECHNIQUE: CT head was performed without contrast utilizing 2.5 mm axial reconstruction with images reviewed in bone and brain windows. Automated exposure control was utilized. COMPARISON: 12/20/2021 FINDINGS: There is no evidence for an acute intra or extra-axial hemorrhage. No significant white matter abnormalities are seen. The grant-white matter differentiation is preserved. There is no intracranial mass effect. The ventricles are proportional to the overall brain volume without evidence for outflow obstruction. There is no shift of the midline structures and the basal cisterns are widely patent. There are no depressed or widely calvarial fractures. Tiny foci of nonaggressive mucosal thickening in the paranasal sinuses. The mastoids are clear. IMPRESSION: 1. No acute intracranial abnormalities. All CT scans at this facility use dose modulation, iterative reconstruction, and/or weight based dosing when appropriate to reduce radiation dose to as low as reasonably achievable. Finalized by Henry Solis MD on 11/24/2024 10:18 PM Procedure Note Henry Solis MD - 11/24/2024 EXAM: CT BRAIN WO CONT CLINICAL INFORMATION: Seizure. TECHNIQUE: CT head was performed without contrast utilizing 2.5 mm axialreconstruction with images reviewed in bone and brain windows. Automatedexposure control was utilized. COMPARISON: 12/20/2021 FINDINGS: There is no evidence for an acute intra or extra-axial hemorrhage. Nosignificant white matter abnormalities are seen. The grant-white matterdifferentiation is preserved. There is no intracranial mass effect. Theventricles are proportional to the overall brain volume without evidencefor outflow obstruction. There is no shift of the midline structures and the basalcisterns are widely patent. There are no depressed or widely separatedcalvarial fractures. Tiny foci of nonaggressive mucosal thickening in theparanasal sinuses. The mastoids are clear. IMPRESSION: 1. No acute intracranial abnormalities. All CT scans at this facility use dose modulation, iterativereconstruction, and/or weight based dosing when appropriate to reduceradiation dose to as low as reasonably achievable. Finalized by Henry Solis MD on 11/24/2024 10:18 PM us Cecilio Grant DO IMG CT ORDERABLES Final Result * ECG 12 lead (11/24/2024 7:08 PM EDT) 11/24/2024 7:08 PM EDT Cecilio Grant DO ECG ORDERABLES Final Result TRACEMASTERVUE * (ABNORMAL) Comprehensive metabolic panel (11/24/2024 7:04 PM EDT) SODIUM 142 134 - 146 mmol/L 11/24/2024 7:48 PM EDT [facility] POTASSIUM 4.1 3.5 - 5.0 mmol/L 11/24/2024 7:48 PM EDT [facility] CHLORIDE 106 98 - 109 mmol/L 11/24/2024 7:48 PM EDT [facility] CARBON DIOXIDE 24 22 - 32 mmol/L 11/24/2024 7:48 PM EDT [facility] ANION GAP 12 5 - 15 mmol/L 11/24/2024 7:48 PM EDT [facility] BLOOD UREA NITROGEN 11 5 - 23 mg/dL 11/24/2024 7:48 PM EDT [facility] CREATININE 0.69 0.40 - 1.00 mg/dL 11/24/2024 7:48 PM EDT [facility] Comment:METHOD TRACEABLE TO IDMS STANDARD GLUCOSE 77 65 - 99 mg/dL 11/24/2024 7:48 PM EDT [facility] CALCIUM 9.0 8.5 - 10.5 mg/dL 11/24/2024 7:48 PM EDT [facility] TOTAL PROTEIN 6.7 6.0 - 8.0 g/dL 11/24/2024 7:48 PM EDT [facility] ALBUMIN 4.1 3.2 - 5.3 g/dL 11/24/2024 7:48 PM EDT [facility] ALKALINE PHOSPHATASE 77 39 - 130 U/L 11/24/2024 7:48 PM EDT [facility] AST 14 <=41 U/L 11/24/2024 7:48 PM EDT [facility] ALT 14 <=31 U/L 11/24/2024 7:48 PM EDT [facility] BILIRUBIN,TOTAL 0.2(L) 0.3 - 1.2 mg/dL 11/24/2024 7:48 PM EDT [facility] EGFR Non-Race Dependent >90 >=60 ml/min/1.7 3sq.m 11/24/2024 7:48 PM EDT [facility] Comment: Reported eGFR is based on the CKD-EPI 2020 equation that does not use a race coefficient. Blood Venous blood / Unknown 11/24/2024 7:04 PM EDT 11/24/2024 7:14 PM EDT Cecilio Grant DO LAB BLOOD ORDERABLES Final Resul t [facility] [address] [place] [address], [place] [phone] * (ABNORMAL) CBC auto differential (11/24/2024 7:04 PM EDT) WBC 8.3 4 - 11 x10E9/L 11/24/2024 7:27 PM EDT [facility] RBC Count 4.55 3.8 - 5.2 X10E12/L 11/24/2024 7:27 PM EDT [facility] Hemoglobin 13.3 11.7 - 15.5 g/dL 11/24/2024 7:27 PM EDT [facility] Hematocrit 39.0 35 - 47 % 11/24/2024 7:27 PM EDT [facility] MCV 86 80 - 100 fL 11/24/2024 7:27 PM EDT [facility] MCH 29.2 27 - 34 pg 11/24/2024 7:27 PM EDT [facility] [facility] MCHC 34.1 32 - 36 g/dL 11/24/2024 7:27 PM EDT [facility] RDW 13.8 11.5 - 15 % 11/24/2024 7:27 PM EDT [facility] Platelet Count 254 150 - 450 [id number]/L 11/24/2024 7:27 PM EDT [facility] MPV 7.8 7 - 12 fL 11/24/2024 7:27 PM EDT [facility] Neutrophils % 55.2 % 11/24/2024 7:27 PM EDT [facility] Lymphocytes % 30.0 % 11/24/2024 7:27 PM EDT [facility] Monocytes % 6.7 % 11/24/2024 7:27 PM EDT [facility] Eosinophils % 7.5 % 11/24/2024 7:27 PM EDT [facility] Basophils % 0.6 % 11/24/2024 7:27 PM EDT [facility] Neutrophils Absolute (A) 4.6 1.5 - 6.6 10*3/uL 11/24/2024 7:27 PM EDT [facility] Lymphocytes Absolute 2.5 1.0 - 3.5 10*3/uL 11/24/2024 7:27 PM EDT [facility] Monocytes Absolute 0.6 0.0 - 0.9 10*3/uL 11/24/2024 7:27 PM EDT [facility] Eosinophils Absolute 0.6(H) 0.0 - 0.4 10*3/uL 11/24/2024 7:27 PM EDT [facility] Basophils Absolute 0.0 0.0 - 0.2 10*3/uL 11/24/2024 7:27 PM EDT [facility] Differential Type AUTOMATED DIFFERENTIAL 11/24/2024 7:27 PM EDT [facility] Blood Venous blood / Unknown 11/24/2024 7:04 PM EDT 11/24/2024 7:14 PM EDT us Cecilio Grant DO LAB BLOOD ORDERABLES Final Resul t [facility] [address] [place] [address], [place] [phone] documented in this encounter Visit Diagnoses Diagnosis Nonintractable headache, unspecified chronicity pattern, unspecified headache type- Primary documented in this encounter Administered Medications Inactive Administered Medications - up to 3 most recent administrations Medication Order MAR Action Action Date Dose Rate Site acetaminophen (OFIRMEV) IVPB Premix 1,000 mg 1,000 mg, intravenous, at 400 mL/hr, Administer over 15 Minutes, Once, On 11/24/24 at 1836, For 1 dose New Bag 11/24/2024 6:54 PM EDT 1,000 mg 400 mL/hr diphenhydrAMINE (BENADRYL) injection 25 mg 25 mg, intravenous, Every 6 hours, First dose on 11/24/24 at 1928, Look-alike/sound-alike medication - verify indication for use. Given 11/24/2024 8:14 PM EDT 25 mg diphenhydrAMINE (BENADRYL) injection 25 mg 25 mg, intravenous, Once, On 11/24/24 at 2245, For 1 dose, Look-alike/sound-alike medication - verify indication for use. Given 11/24/2024 10:51 PM EDT 25 mg ketorolac (TORADOL) injection 15 mg 15 mg, intravenous, Once, On 11/24/24 at 2245, For 1 dose, Look-alike/sound-alike medication - verify indication for use. Duration of therapy is not to exceed 5 days. Maximum recommended dose + 120mg/24 hours. Given 11/24/2024 10:51 PM EDT 15 mg ketorolac (TORADOL) injection 30 mg 30 mg, intravenous, Every 6 hours PRN, Headache, Starting on 11/24/24 at 1924, For 3 days, Look-alike/sound-alike medication - verify indication for use. Duration of therapy is not to exceed 5 days. Maximum recommended dose + 120mg/24 hours. Given 11/24/2024 8:15 PM EDT 30 mg LORazepam (ATIVAN) injection 1 mg 1 mg, intravenous, Every 4 hours PRN, seizures, Give if 2 or more seizures in 1 minute, Starting on 11/24/24 at 1800, Look-alike/sound-alike medication - verify indication for use;IV use requires increased monitoring of HR,BP,Respirations and Pulse Oximetry;For IV-dilute with equal volume PF sod chloride Given 11/24/2024 6:34 PM EDT 1 mg magnesium sulfate IVPB 1000 mg/100 mL in dextrose 5% (10 mg/mL premix) 1,000 mg, intravenous, at 100 mL/hr, Administer over 60 Minutes, Every 6 hours PRN, Headche, Starting on 11/24/24 at 1926 New Bag 11/24/2024 8:18 PM EDT 1,000 mg 100 mL/hr ondansetron (PF) (ZOFRAN) injection 4 mg 4 mg, intravenous, Every 6 hours PRN, Headache, Starting on 11/24/24 at 1925, Intravenous administration preferred to be given over 2-5 minutes. Given 11/24/2024 8:16 PM EDT 4 mg sodium chloride 0.9 % bolus 1,000 mL, intravenous, at 1,935.5 mL/hr, Administer over 31 Minutes, Once, On 11/24/24 at 1836, For 1 dose New Bag 11/24/2024 6:54 PM EDT 1,000 mL 1935.5 mL/hr sodium chloride 0.9 % bolus 1,000 mL, intravenous, at 4,000 mL/hr, Administer over 15 Minutes, Once, On Mon11/24/24 at 1843, For 1 dose New Bag 11/24/2024 7:31 PM EDT 1,000 mL 4000 mL/hr documented in this encounter Active and Recently Administered Medications Times are shown in EDT. Scheduled Medication Order 11/23/2024 11/24/2024 11/25/2024 acetaminophen (OFIRMEV) IVPB Premix 1,000 mg (COMPLETED) 1,000 mg, intravenous, at 400 mL/hr, Administer over 15 Minutes, Once, On Mon11/24/24 at 1836, For 1 dose 185 (New Bag - Provider: Nita Charles RN)190 (Stop Bag - Provider: Nusrat Sanchez RN) diphenhydrAMINE (BENADRYL) injection 25 mg (CANCELED)(Linked Group 1) 25 mg, intravenous, Every 6 hours, First dose on Mon11/24/24 at 1928, Look-alike/sound-alike medication - verify indication for use. 2013 (Given - Provider: Nusrat Sanchez, PRATIBHA) diphenhydrAMINE (BENADRYL) injection 25 mg (COMPLETED) 25 mg, intravenous, Once, On 11/24/24 at 2245, For 1 dose, Look-alike/sound-alike medication - verify indication for use. 2250 (Given - Provider: Nusrat Sanchez RN) ketorolac (TORADOL) injection 15 mg (COMPLETED) 15 mg, intravenous, Once, On 11/24/24 at 2245, For 1 dose, Look-alike/sound-alike medication - verify indication for use. Duration of therapy is not to exceed 5 days. Maximum recommended dose + 120mg/24 hours. 2250 (Given - Provider: Nusrat Rauh, RN) sodium chloride 0.9 % bolus (COMPLETED) 1,000 mL, intravenous, at 1,935.5 mL/hr, Administer over 31 Minutes, Once, On 11/24/24 at 1836, For 1 dose 185 (New Bag - Provider: Nita Charles RN)1924 (Stop Bag - Provider: Nusrat Sanchez RN) sodium chloride 0.9 % bolus (COMPLETED) 1,000 mL, intravenous, at 4,000 mL/hr, Administer over 15 Minutes, Once, On 11/24/24 at 1843, For 1 dose 193 (New Bag - Provider: Nusrat Sanchez, PRATIBHA)1945 (Stop Bag - Provider: Nusrat Sanchez, PRATIBHA) PRN Medication Order 11/23/2024 11/24/2024 11/25/2024 ketorolac (TORADOL) injection 30 mg (CANCELED)(Linked Group 1) 30 mg, intravenous, Every 6 hours PRN, Headache, Starting on Mon11/24/24 at 192, For 3 days, Look-alike/sound-alike medication - verify indication for use. Duration of therapy is not to exceed 5 days. Maximum recommended dose + 120mg/24 hours. 2014 (Given - Provider: Nusrat Sanchez RN) LORazepam (ATIVAN) injection 1 mg (CANCELED) 1 mg, intravenous, Every 4 hours PRN, seizures, Give if 2 or more seizures in 1 minute, Starting on 11/24/24 at 1800, Look-alike/sound-alike medication - verify indication for use;IV use requires increased monitoring of HR,BP,Respirations and Pulse Oximetry;For IV-dilute with equal volume PF sod chloride 1833 (Given - Provider: Lo Silva RN) magnesium sulfate IVPB 1000 mg/100 mL in dextrose 5% (10 mg/mL premix) (CANCELED)(Linked Group 1) 1,000 mg, intravenous, at 100 mL/hr, Administer over 60 Minutes, Every 6 hours PRN, Headche, Starting on 11/24/24 at 1926 2017 (New Bag - Provider: Nusrat Sanchez RN)2117 (Stop Bag - Provider: Nusrat Sanchez, PRATIBHA) ondansetron (PF) (ZOFRAN) injection 4 mg (CANCELED)(Linked Group 1) 4 mg, intravenous, Every 6 hours PRN, Headache, Starting on 11/24/24 at 1925, Intravenous administration preferred to be given over 2-5 minutes. 2015 (Given - Provider: Nusrat Sanchez RN) Linked Groups Order Group 1: ketorolac (TORADOL) injection 30 mg (CANCELED)Jump to med 30 mg, intravenous, Every 6 hours PRN, Headache, Starting on 11/24/24 at 1924, For 3 days, Look-alike/sound-alike medication - verify indication for use. Duration of therapy is not to exceed 5 days. Maximum recommended dose + 120mg/24 hours. And diphenhydrAMINE (BENADRYL) injection 25 mg (CANCELED)Jump to med 25 mg, intravenous, Every 6 hours, First dose on 11/24/24 at 1928, Look-alike/sound-alike medication - verify indication for use. And ondansetron (PF) (ZOFRAN) injection 4 mg (CANCELED)Jump to med 4 mg, intravenous, Every 6 hours PRN, Headache, Starting on 11/24/24 at 1925, Intravenous administration preferred to be given over 2-5 minutes. And magnesium sulfate IVPB 1000 mg/100 mL in dextrose 5% (10 mg/mL premix) (CANCELED)Jump to med 1,000 mg, intravenous, at 100 mL/hr, Administer over 60 Minutes, Every 6 hours PRN, Headche, Starting on 11/24/24 at 1926 documented in this encounter Additional Health Concerns Assessment Noted Time PHQ-9 Depression Total Score: 0 07/25/19 3:07 PM EDT documented as of this encounter Care Teams Archivist Relationship Specialty Start Date End Date Corine Gold MD [address] [place] [address] PCP - General Internal Medicine 03/25/24 documented as of this encounter
--- OUTSIDE RECORDS SUMMARY | 2024-11-26 13:45 | XMS_ITS | Encounter Summary ---
Author Organization [facility] Address [facility] [place] [address] Care Team Providers Care Precast Concrete Ironworker Name Role Phone Abdifatah Brady (Historical) Primary Care Provide r Unavailable Source Comments In the event this information is protected by the Federal Confidentiality of Alcohol and Drug AbusePatient Records regulations: The Federal rules restrict any use of the information to criminally investigate or prosecute any alcohol or drug abuse patient.[facility] Reason for Visit * Reason Comments Appointment Cancelled * Consult, Test, Treat (Routine) - Closed Specialty Diagnoses / Procedures Referred By Contac t Referred To Contact Diagnoses Intractable chronic migraine without aura and with status migrainosus Procedures OFFICE/OUTPATIENT [facility] 60 MINUTES Griffin Lepe PA-C [address] [place] [address] Phone: tel: fax: Referral ID Status Reason Start Date Expiration Date V isits Requested Visits Authorized [id number] Closed PCP Requested Referral 11/25/2024 09/24/2025 1 1 Encounter Details Date Type Department Care Team (Latest Contact Info) Description 11/26/2024 1:45 PM EDT [facility] Neurology Headache [facility] [address] [place] [address] Raiza Morales APRN.DIRECTOR OF CONSERVATION [address] [place] [address] Intractable chronic migraine without aura and with status migrainosus Social History Tobacco Use Types Packs/Day Years Used Date Smoking Tobacco: Never Smokeless Tobacco: Never PHQ-2 Answer Date Recorded PHQ-2 score 2 11/26/2024 Area Deprivation Index Answer Date Zi rded National Score (1-100), lower number is lower ri sk 94 06/23/2022 State Score (1-10), lower number is lower risk 9 06/23/2022 Data from: https://www.neighborhoodatlas.medicine.[facility].edu/. Last address used for calculation [address] 06/23/2022 Comments No Sex and Gender Information [...] Entry Date Author No 04/01/2022 6:20 PM EST Pamela Maciel RN documented in this encounter Progress Notes * Raiza Morales APRN.CNP - 11/26/2024 1:45 PM EDT Patient was incorrectly scheduled; Was told to establish care with MD, I will have scheduling team reach out and assist patient in getting set up with Physician. Appointment cancelled, no charge. Raiza Morales APRN.CNP documented in this encounter Plan of Treatment Upcoming Encounters Date Type Department Care Team (Latest Contact Info) Description 12/04/2024 11:00 AM EDT [facility] Neurology [address] [id number] Tyrone Dolan MD, PhD [address] [facility] [address] [place] [address] New [place] 12/11/2024 9:30 AM EDT [facility] [address] [phone] [facility] In[facility] 02/25/2025 10:00 AM EST Office Visit Neurology [address] [place] [address] Basil Cornelius DO [address] [place] [address] New patient reestablish care documented as of this encounter Visit Diagnoses Diagnosis Intractable chronic migraine without aura and with status migrainosus Chronic migraine without aura, with intractable migraine, so stated, with status migrainosus documented in this encounter Care Teams Precast Concrete Ironworker Relationship Specialty Start Date End Date Abdifatah Brady (Historical) PCP - General 05/21/13 documented as of this encounter
[2024-12-01 03:43] VITALS: BP 119/89; PULSE 81; TEMP 36.4; O2SAT 98; BMI 51.0
--- OUTSIDE RECORDS SUMMARY | 2024-12-01 03:45 | XMS_ITS | Encounter Summary ---
Author Organization Address [address] [place] [address] Care Team Providers Care Treating Plant Operator Name Role Phone Abdifatah Brady (Historical) Primary Care Provide r Unavailable Source Comments In the event this information is protected by the Federal Confidentiality of Alcohol and Drug AbusePatient Records regulations: The Federal rules restrict any use of the information to criminally investigate or prosecute any alcohol or drug abuse patient. Encounter Details Date Type Department Care Team (Late st Contact Info) Description 03/23/2023 Patient Msg Neurology [address] [place], [place] [phone] Provider, [facility] Headache Infusion Social History Tobacco Use Types Packs/Day Years Used Date Smoking Tobacco: Never Smokeless Tobacco: Never PHQ-2 Answer Date Recorded PHQ-2 score 2 03/22/2023 Area Deprivation Index Answer Date Zi rded National Score (1-100), lower number is lower ri sk 94 06/23/2022 State Score (1-10), lower number is lower risk 9 06/23/2022 Data from: https://www.neighborhoodatlas.[facility]/. Last address used for calculation [address] [...] Contact Info) Description 12/04/2024 11:00 AM EDT [facility] Neurology [address] [place] [address] Tyrone Dolan MD, PhD [address] [facility] [address] [place] [phone] Vaughn Wilson 12/11/2024 9:30 AM EDT [facility] Neurology [address] [place] [address] [facility] Infusion 02/25/2025 10:00 AM EST Office Visit Neurology [address] [facility] [address] [place] [address] Basil Cornelius, [place] [phone] New patient reestablish care documented as of this encounter Visit Diagnoses Not on filedocumented in this encounter Care Teams Treating Plant Operator Relationship Specialty Start Date End Date Abdifatah Brady (Historical) PCP - General 05/21/13 documented as of this encounter
--- OUTSIDE RECORDS SUMMARY | 2024-12-01 03:45 | XMS_ITS | Encounter Summary ---
Author Organization [facility] Address [address] [place] [address] Care Team Providers Care Foreign Language Interpreter Name Role Phone Lamont Blair MD Primary Care Provider [phone] Unallocated, Noms Provider Primary Care Provi mahsa Lamont Blair MD Unavailable Encounter Details Date Type Department Care Team (Late st Contact Info) Description 03/27/2023 [facility] [address] [place] [address] Lamont Blair MD [address] [place] [address] Social History Tobacco Use Types Packs/Day Years [...] on filedocumented in this encounter Care Teams Foreign Language Interpreter Relationship Specialty Start Date End Date Lamont Blair MD PCP - General Family Medicine 03/14/23 04/21/24 Unallocated, Noms MD Anoop [address] [place] [address] PCP - General Family Medicine 04/22/24 07/31/24 Lamont Blair MD [address] [place] [address] PCP - [facility] 05/21/2401/19 documented as of this encounter
--- OUTSIDE RECORDS SUMMARY | 2024-12-01 03:45 | XMS_ITS | Encounter Summary ---
Author Organization [facility] Address [address] [place] [address] Care Team Providers Care Laborer Egg Producing Farm Name Role Phone Abdifatah Brady (Historical) Primary Care Provide r Unavailable Source Comments In the event this information is protected by the Federal Confidentiality of Alcohol and Drug AbusePatient Records regulations: The Federal rules restrict any use of the information to criminally investigate or prosecute any alcohol or drug abuse patient.[facility] Encounter Details Date Type Department Care Team (Late st Contact Info) Description 04/11/2023 Patient Msg Neurology [address] [place], [place] [phone] Provider, [facility] Appointment scheduling Social History Tobacco Use Types Packs/Day Years Used Date Smoking Tobacco: Never Smokeless Tobacco: Never PHQ-2 Answer Date Recorded PHQ-2 score 2 03/22/2023 Area Deprivation Index Answer Date Zi rded National Score (1-100), lower number is lower ri sk 94 06/23/2022 State Score (1-10), lower number is lower risk 9 06/23/2022 Data from: https://www.neighborhoodatlas.[facility]/. Last address used for calculation [...] Contact Info) Description 12/04/2024 11:00 AM EDT [facility] Neurology [address] [place] [address] Tyrone Dolan MD, PhD [address] [facility] [address] [place] [phone] Vaughn Wilson 12/11/2024 9:30 AM EDT [facility]fusion [facility] Neurology [address] [place] [address] [facility] Infusion 02/25/2025 10:00 AM EST Office Visit Neurology [address] [facility] [address] [place] [address] Basil Cornelius, [place] [phone] New patient reestablish care documented as of this encounter Visit Diagnoses Not on filedocumented in this encounter Care Teams Laborer [employer] Producing [employer] Relationship Specialty Start Date End Date Abdifatah Brady (Historical) PCP - General 05/21/13 documented as of this encounter
--- OUTSIDE RECORDS SUMMARY | 2024-12-01 03:45 | XMS_ITS | Encounter Summary ---
Author Organization [facility] Address [address] [place] [address] Care Team Providers Care Quality Officer Name Role Phone Abdifatah Brady (Historical) Primary Care Provide r Unavailable Source Comments In the event this information is protected by the Federal Confidentiality of Alcohol and Drug AbusePatient Records regulations: The Federal rules restrict any use of the information to criminally investigate or prosecute any alcohol or drug abuse patient.[facility] Encounter Details Date Type Department Care Team (Late st Contact Info) Description 03/23/2023 Patient Msg Neurology [address] [place], [place] [phone] Provider, Cc Hot information Social History Tobacco Use Types Packs/Day Years Used Date Smoking Tobacco: Never Smokeless Tobacco: Never PHQ-2 Answer Date Recorded PHQ-2 score 2 03/22/2023 Area Deprivation Index Answer Date Zi rded National Score (1-100), lower number is lower ri sk 94 06/23/2022 State Score (1-10), lower number is lower risk 9 06/23/2022 Data from: https://www.neighborhoodatlas.[facility]/. Last address used for calculation [address] [...] Contact Info) Description 12/04/2024 11:00 AM EDT [facility] Neurology [address] [place] [address] Tyrone Dolan MD, PhD [address] [facility] [address] [place] [phone] Vaughn Wilson 12/11/2024 9:30 AM EDT [facility]fusion [facility] Neurology [address] [place] [address] [facility] Infusion 02/25/2025 10:00 AM EST Office Visit Neurology [address] [facility] [address] [place] [address] Basil Cornelius, [place] [phone] New patient reestablish care documented as of this encounter Visit Diagnoses Not on filedocumented in this encounter Care Teams Quality Officer Relationship Specialty Start Date End Date Abdifatah Brady (Historical) PCP - General 05/21/13 documented as of this encounter
--- OUTSIDE RECORDS SUMMARY | 2024-12-01 03:46 | XMS_ITS | Encounter Summary ---
Author Organization [facility] Address [address] [place] [address] Care Team Providers Care Correction Officer [employer] [place] [employer] Name Role Phone Lamont Blair MD Primary Care Provider [phone] Unallocated, Noms Provider Primary Care Provi mahsa Lamont Blair MD Unavailable Encounter Details Date Type Department Care Team (Late st Contact Info) Description 08/15/2023 Orders Only [facility] [address] [place] [address] Lamont Blair MD [address] [place] [address] Social History Tobacco Use Types Packs/Day Years [...] on file documented as of this encounter Procedures Procedure Name Priority Date/Time Associated Diagnosis Comments ELECTROCARDIOGRAM REPORT Routine 024 7:52 AM EDT documented in this encounter Results * Electrocardiogram Report (08/14/2023 7:52 AM EDT) Lamont Blair MD IN CLINIC/BEDSIDE ORDERABLES Fin al Result documented in this encounter Visit Diagnoses Not on filedocumented in this encounter Care Teams Correction Officer [place] [facility] Relationship Specialty Start Date End Date Lamont Blair MD PCP - General Family Medicine 03/14/23 04/21/24 Unallocated, Noms MD Anoop [address] [place] [address] PCP - General Family Medicine 04/22/24 07/31/24 Lamont Blair MD [address] [place] [address] PCP - [facility] 05/21/2401/19 documented as of this encounter
--- OUTSIDE RECORDS SUMMARY | 2024-12-01 03:46 | XMS_ITS | Clinical Summary ---
[facility] Organization [facility] Address [id number] [address] [place] [address] Care Team Providers Care Public Health Worker Name Role Phone Corine Gold MD Primary Care Provider [phone] Allergies Active Allergy Reactions Criticality Noted Date Comments Adhesive Rash Medium 08/06/2021 Adhesive Tape-Silicones 12/08/2016 Bee Venom Protein (Honey Bee) Anaphylaxis High 01/24/2023 Buspirone Hives Low 08/06/2021 Carbamazepine Other (See Comments) 12/24/2020 anxiety Ciprofloxacin Hives 12/12/2022 Clindamycin Hives 06/25/2020 Prochlorperazine Anxiety Low 12/29/2023 Dexamethasone Hives 03/18/2024 Dextromethorphan Hives 12/12/2022 Dihydroergotamine GI Disturbance,Hives Medium 07/28/19 23 Other Reaction(s): Intolerance Chest tightness, numbness and tingling in bilateral extremities, increased anxiety Eptinezumab-Jjmr Itching,Rash Low 05/02/2024 Patient described extreme itching located on her chest and arms (bilaterally). Haloperidol Hallucinations 11/24/2024 Cephalexin Hives 12/08/2016 Levetiracetam Hives,Itching 11/11/2022 Metoclopramide Hives,Other (See Comments) 12/24/2020 Propranolol Hcl Hives,Other (See Comments) 12/24/2020 Migrianes Pyrilamine-Dextromethorph an Hives 03/03/2022 Metoclopramide Hcl Itching,Anxiety Low 12/08/2016 [...] the morning. 60 each 11 5 Active traZODone (DESYREL) 300 MG tablet Take [...] minutes, and rinse 120 mL 5 Active scopolamine (TRANSDERM-SCOP ) 1 mg/[address] 1 patch on the skin every third day. 5 Active ubrogepant (UBRELVY) 100 mg tablet 5 Active estradioL (ESTRACE) 1 mg tabletIndicatio ns:Menopausal symptoms Take 1 tablet (1 mg total) by mouth in the morning. 30 tablet 3 5 Active loratadine (CLARITIN) 10 mg tabletIndicatio ns:Seasonal allergic rhinitis, unspecified trigger Take 1 tablet (10 mg total) by mouth daily as needed for allergies. 90 tablet 1 5 Active fluticasone propionate (FLONASE) 50 mcg/actuation [...] to allergen). 2 each 1 5 Active baclofen (LIORESAL) 10 mg tabletIndicatio ns:Muscle spasm TAKE 1 TABLET BY MOUTH NIGHTLY 30 tablet 3 5 Active albuterol (VENTOLIN HFA) 90 mcg/actuation inhalerIndicati ons:Moderate persistent asthma, unspecified whether complicated INHALE TWO PUFFS BY MOUTH EVERY 4 HOURS NEEDED 18 g 11 5 Active carBAMazepine XR (TEGretol XR) 100 mg 12 hr tablet Take 2 tablets (200 mg total) by mouth in the morning and 2 tablets (200 mg total) before bedtime. 120 tablet 5 Active guaiFENesin (MUCINEX) 600 mg tablet extended release 12hr Take 1 tablet (600 mg total) by mouth every 12 (twelve) hours for 10 days. 20 tablet 5 025 Hospital, Clinic, or Other Facility Administered Medication [...] Encounters Date Type Department Care Team Description 11/24/2024 5:31 PM EDT - 11/25/2024 2:16 AM EDT Emergency [facility] - Emergency Department [address] [place] [phone] Cecilio Grant DO Nonintractable headache, unspecified chronicity pattern, unspecified headache type (Primary Dx) Discharge Disposition: Home 11/24/2024 Travel 2024 Travel 10/24/2024 2:40 PM EDT Office Visit [facility] [address] [place] [address] [place] [address] Mali Hart APRN-FADY Left otitis media, unspecified otitis media type (Primary Dx); Mild asthma with exacerbation, unspecified whether persistent 10/24/2024 Travel 09/30/2024 Orders Only [facility] [address] [place] [phone] Mariah Peña, Moderate persistent asthma, unspecified whether complicated 09/29/2024 Refill [facility] [address] [place] [address] [place] [address] Corine Gold MD Muscle spasm from Last 3 Months Immunizations Immunization Administration [...] = 0.6 oz pur e alcohol) social [employer] Utilities Answer Date Recorded In the past 12 months has [place], gas, oil, or water [employer] threatened to shut off services in your [...] Mass Index 51.02 11/24/2024 4:47 PM EDT Plan of Treatment Upcoming Encounters Date Type Department Care Team (Late st Contact Info) Description 12/10/2024 2:30 PM EDT Office Visit [facility] [address] [place] [address] [place] [phone] Corine Gold MD [address], [place], [place] [phone] 12/17/2024 9:30 AM EDT Office Visit [facility] [address] [phone] Mariah Peña DO [address] [address] Health Maintenance Due Date Last Done Comments Adult BMI Follow Up Plan 11/13/2013 Influenza Vaccine 10/21/2024 12/08/2017, , 11/27/2014, Additional history exists Depression Screening 07/24/2025 07/24/2024 DTaP,Tdap and Td Vaccines (7 - Td or Tdap) 09/20/2025 09/21/2015, 09/07/2001, 03/05/1997, Additional history exists Tobacco Screening 10/24/2025 10/24/2024 Adult BMI Screening 11/24/2025 11/24/2024 Pap Smear Discontinued 04/16/2024 Goals Goal Patient Goal Type Associated Problems Recent Progress Patient-Stated? Author home General Yes Doing, PRATIBHA Morrison Note: Evaluation of progress towards goal: Patient stated goal is to return home with [facility] for assistance with wound care Medical Devices Not on file Procedures Procedure Name Priority Date/Time Associated Diagnosis Comments CT BRAIN WO CONT STAT 11/24/2024 9:06 PM EDT ECG 12-LEAD STAT 11/24/2024 7:08 PM EDT COMPREHENSIVE METABOLIC PANEL STAT 11/24/2024 7:04 PM EDT CBC WITH AUTO DIFFERENTIAL STAT 11/24/2024 7:04 PM EDT from Last 3 Months Results * CT brain without contrast (11/24/2024 [...] ECG ORDERABLES Final Result TRACEMASTERVUE * (ABNORMAL) CBC auto differential (11/24/2024 7:04 PM EDT) WBC 8.3 4 - 11 x10E9/L 11/24/2024 7:27 PM EDT [facility] RBC Count 4.55 3.8 - 5.2 X10E12/L 11/24/2024 7:27 PM EDT [facility] Hemoglobin 13.3 11.7 - 15.5 g/dL 11/24/2024 7:27 PM EDT [facility] Hematocrit 39.0 35 - 47 % 11/24/2024 7:27 PM EDT [facility] MCV 86 80 - 100 fL 11/24/2024 7:27 PM EDT [facility] MCH 29.2 27 - 34 pg 11/24/2024 7:27 PM EDT [facility] MCHC 34.1 32 - 36 g/dL 11/24/2024 7:27 PM EDT [facility] RDW 13.8 11.5 - 15 % 11/24/2024 7:27 PM EDT [facility] Platelet Count 254 150 - 450 X10E9/L 11/24/2024 7:27 PM EDT [facility] MPV 7.8 7 - 12 fL 11/24/2024 7:27 PM EDT [facility] Neutrophils % 55.2 % 11/24/2024 7:27 PM EDT [facility] Lymphocytes % 30.0 % 11/24/2024 7:27 PM EDT [facility] Monocytes % 6.7 % 11/24/2024 7:27 PM EDT [facility] Eosinophils % 7.5 % 11/24/2024 7:27 PM EDT [facility] Basophils % 0.6 % 11/24/2024 7:27 PM EDT [facility] Neutrophils Absolute (A) 4.6 1.5 - 6.6 10*3/uL 11/24/2024 7:27 PM EDT [facility] Lymphocytes Absolute 2.5 1.0 - 3.5 10*3/uL 11/24/2024 7:27 PM EDT [facility] Monocytes Absolute 0.6 0.0 - 0.9 10*3/uL 11/24/2024 7:27 PM EDT [facility] Eosinophils Absolute 0.6(H) 0.0 - 0.4 10*3/uL 11/24/2024 7:27 PM EDT [facility] Basophils Absolute 0.0 0.0 - 0.2 10*3/uL 11/24/2024 7:27 PM EDT [facility] Differential Type AUTOMATED DIFFERENTIAL 11/24/2024 7:27 PM EDT [facility] Blood Venous blood / Unknown 11/24/2024 7:04 PM EDT 11/24/2024 7:14 PM EDT us Cecilio Grant DO LAB BLOOD ORDERABLES Final Resul t [facility] [address] [place] [address], [place] [phone] * (ABNORMAL) Comprehensive metabolic panel (11/24/2024 7:04 PM EDT) SODIUM 142 134 - 146 mmol/L 11/24/2024 7:48 PM EDT [facility] POTASSIUM 4.1 3.5 - 5.0 mmol/L 11/24/2024 7:48 PM EDT [facility] CHLORIDE 106 98 - 109 mmol/L 11/24/2024 7:48 PM EDT [facility] CARBON DIOXIDE 24 22 - 32 mmol/L 11/24/2024 7:48 PM EDT [facility] ANION GAP 12 5 - 15 mmol/L 11/24/2024 7:48 PM EDT [facility] BLOOD UREA NITROGEN 11 5 - 23 mg/dL 11/24/2024 7:48 PM EDT [facility] CREATININE 0.69 0.40 - 1.00 mg/dL 11/24/2024 7:48 PM EDT [facility] Comment:METHOD TRACEABLE TO IDMS STANDARD GLUCOSE 77 65 - 99 mg/dL 11/24/2024 7:48 PM EDT [facility] CALCIUM 9.0 8.5 - 10.5 mg/dL 11/24/2024 7:48 PM EDT [facility] TOTAL PROTEIN 6.7 6.0 - 8.0 g/dL 11/24/2024 7:48 PM EDT [facility] ALBUMIN 4.1 3.2 - 5.3 g/dL 11/24/2024 7:48 PM EDT [facility] ALKALINE PHOSPHATASE 77 39 - 130 U/L 11/24/2024 7:48 PM EDT [facility] AST 14 <=41 U/L 11/24/2024 7:48 PM EDT [facility] ALT 14 <=31 U/L 11/24/2024 7:48 PM EDT [facility] BILIRUBIN,TOTAL 0.2(L) 0.3 - 1.2 mg/dL 11/24/2024 7:48 PM EDT [facility] EGFR Non-Race Dependent >90 >=60 ml/min/1.7 3sq.m 11/24/2024 7:48 PM EDT [facility] Comment: Reported eGFR is based on the CKD-EPI 2020 equation that does not use a race coefficient. Blood Venous blood / Unknown 11/24/2024 7:04 PM EDT 11/24/2024 7:14 PM EDT us Cecilio Grant DO LAB BLOOD ORDERABLES Final Resul t [facility] [address] [place] [address], from Last 3 Months Insurance [place] [employer] [employer] Advance Directives * Full Code (Latest Code Status on File) Date Activated Date Inactivated Comments 03/28/2024 2:56 PM 03/28/2024 8:49 PM Care Teams Public Health Worker Relationship Specialty Start Date End Date Corine Gold MD [address] [place] [address] PCP - General Internal Medicine 03/25/24
--- OUTSIDE RECORDS SUMMARY | 2024-12-01 03:46 | XMS_ITS | Encounter Summary ---
Author Organization [facility] Address [address] [place] [address] Care Team Providers Care Sterile Processing Technologist Name Role Phone Abdifatah Brady (Historical) Primary Care Provide r Unavailable Source Comments In the event this information is protected by the Federal Confidentiality of Alcohol and Drug AbusePatient Records regulations: The Federal rules restrict any use of the information to criminally investigate or prosecute any alcohol or drug abuse patient.[facility] Encounter Details Date Type Department Care Team (Latest Contact Info) Description 11/26/2024 Travel Social History Tobacco Use Types Packs/Day Years Used Date Smoking Tobacco: Never Smokeless Tobacco: Never PHQ-2 Answer Date Recorded PHQ-2 score 2 11/26/2024 Area Deprivation Index Answer Date Zi rded National Score (1-100), lower number is lower ri sk 94 06/23/2022 State Score (1-10), lower number is lower risk 9 06/23/2022 Data from: https://www.neighborhoodatlas.medicine.[facility].edu/. Last address used for calculation [address] 06/23/2022 Comments No Sex and Gender [...] Contact Info) Description 12/04/2024 11:[address] [facility] Neurology [address] [id number] Tyrone Dolan MD, PhD [address] [facility] [address] [place] [address] Vaughn Wilson 12/11/2024 9:30 AM EDT Infusion Center Neurology [address] [place] [address] [facility] Infusion 02/25/2025 10:00 AM EST Office Visit Neurology [address] [place] [address] Cornelius, Basil Carlos, [place] [phone] New patient reestablish care documented as of this encounter Visit Diagnoses Not on filedocumented in this encounter Care Teams Sterile Processing Technologist Relationship Specialty Start Date End Date Abdifatah Brady (Historical) PCP - General 05/21/13 documented as of this encounter
--- OUTSIDE RECORDS SUMMARY | 2024-12-01 03:46 | XMS_ITS | Encounter Summary ---
Author Organization [facility] Address [address] [place] [address] Care Team Providers Care Design Engineering Intern Name Role Phone Lamont Blair MD Primary Care Provider [phone] Lamont Blair MD Primary Care Provider [phone] Unallocated, Noms Provider Primary Care Provi mahsa Lamont Blair MD Unavailable Encounter Details Date Type Department Care Team (Late st Contact Info) Description 07/31/2022 Abstract ARLEN DOUGLAS [address] [place] [phone] Renetta Son PA [address] [place], [place] [phone] Social History Tobacco Use Types Packs/Day Years [...] on filedocumented in this encounter Care Teams Design Engineering Intern Relationship Specialty Start Date End Date Lamont Blair MD PCP - General Cardiology 08/01/22 03/13/23 Lamont Blair MD PCP - General Family Medicine 03/14/23 04/21/24 Unallocated, Noms MD Anoop [address] [place] [address] PCP - General Family Medicine 04/22/24 07/31/24 Lamont Blair MD [address] [place] [address] PCP - [facility] 05/21/2401/19 documented as of this encounter
--- OUTSIDE RECORDS SUMMARY | 2024-12-01 03:46 | XMS_ITS | Encounter Summary ---
Author Organization [facility] Address [address] [place] [address] Care Team Providers Care Securities Counselor Name Role Phone Lamont Blair MD Primary Care Provider [phone] Unallocated, Noms Provider Primary Care Provi mahsa Lamont Blair MD Unavailable Encounter Details Date Type Department Care Team (Late st Contact Info) Description 01/24/2024 External Result Encounter [facility] [address] [place] [address] Lamont Blair MD [address] [place] [phone] Social History Tobacco Use Types Packs/Day Years [...] or pharmacy? Never 01/23/2024 Social Connection and Isolation Panel Answer Date Recorded In a typical week, how many times do you talk on the phone with family, friends, or neighbors? More than three times a week 01/23/2024 How often do you get togethe r with friends or relatives? Twice a week 01/23/2024 How often do you attend chur ch or yazdanism services? More than 4 times per year 01/23/2024 Do you belong to any clubs o r organizations such as roman catholic groups, unions, fraternal or athletic groups, [...] Recorded Patient Health Questionnaire-2 Score 2 03/21/2023 [facility] - Occupational [...] any time in the past 12 m [facility], were you homeless or living in a jail (including now)? No 01/23/2024 Comments No Sex [...] 24.689 ppm 07/02/2024 6:14 AM EDT [facility] ATOPOBIUM VAGINAE Not Detected 19.961 - 24.689 ppm 07/02/2024 6:14 AM EDT [facility] BVAB 2,3 (BACTERIAL VAGINOSIS ASSOCIATED BACTERIA 2, 3); MOBILUNCUS SPP 23.923(A) 19.961 - 24.689 ppm 07/02/2024 6:14 AM EDT [facility] BVAB 2,3 (BACTERIAL VAGINOSIS ASSOCIATED BACTERIA 2, 3); MOBILUNCUS SPP Detected(A) 19.961 - 24.689 ppm 07/02/2024 6:14 AM EDT [facility] JOSE ALBICANS, PARAPSILOSIS, TROPICALIS 0.000 19.961 - 30.770 ppm 07/02/2024 6:14 AM EDT [facility] JOSE ALBICANS, PARAPSILOSIS, TROPICALIS Not Detected 19.961 - 30.770 ppm 07/02/2024 6:14 AM EDT [facility] JOSE GLABRATA 0.000 23.000 - 32.138 ppm 07/02/2024 6:14 AM EDT [facility] JOSE GLABRATA Not Detected 23.000 - 32.138 ppm 07/02/2024 6:14 AM EDT [facility] JOSE KRUSEI 0.000 23.000 - 32.271 ppm 07/02/2024 6:14 AM EDT [facility] JOSE KRUSEI Not Detected 23.000 - 32.271 ppm 07/02/2024 6:14 AM EDT [facility] CHLAMYDIA TRACHOMATIS 0.000 23.000 - 31.467 ppm 07/02/2024 6:14 AM EDT [facility] CHLAMYDIA TRACHOMATIS Not Detected 23.000 - 31.467 ppm 07/02/2024 6:14 AM EDT [facility] GARDNERELLA VAGINALIS 29.333(A) 19.961 - 24.689 ppm 07/02/2024 6:14 AM EDT [facility] GARDNERELLA VAGINALIS Detected(A) 19.961 - 24.689 ppm 07/02/2024 6:14 AM EDT [facility] MEGASPHAERA (TYPES 1, 2) 0.000 19.961 - 24.689 ppm 07/02/2024 6:14 AM EDT [facility] MEGASPHAERA (TYPES 1, 2) Not Detected 19.961 - 24.689 ppm 07/02/2024 6:14 AM EDT [facility] NEISSERIA GONORRHOEAE 0.000 23.000 - 32.117 ppm 07/02/2024 6:14 AM EDT [facility] NEISSERIA GONORRHOEAE Not Detected 23.000 - 32.117 ppm 07/02/2024 6:14 AM EDT [facility] TRICHOMONAS VAGINALIS 0.000 23.000 - 32.119 ppm 07/02/2024 6:14 AM EDT [facility] TRICHOMONAS VAGINALIS Not Detected 23.000 - 32.119 ppm 07/02/2024 6:14 AM EDT [facility] MYCOPLASMA GENITALIUM 0.000 19.961 - 24.689 ppm 07/02/2024 6:14 AM EDT [facility] MYCOPLASMA GENITALIUM Not Detected 19.961 - 24.689 ppm 07/02/2024 6:14 AM EDT [facility] ERMB, C; MEFA 24.504(A) 23.000 - 27.611 ppm 07/02/2024 6:14 AM EDT [facility] ERMB, C; MEFA Detected(A) 23.000 - 27.611 ppm 07/02/2024 6:14 AM EDT [facility] TET B, TET M 24.543(A) 23.000 - 27.778 ppm 07/02/2024 6:14 AM EDT [facility] TET B, TET M Detected(A) 23.000 - 27.778 ppm 07/02/2024 6:14 AM EDT [facility] Tissue 07/01/2024 11:5 6 AM EDT 07/02/2024 1:30 AM EDT us Zay Roopa DO LAB BLOOD ORDERABLES Final Resul t [facility] [address] [place] [address] * XR chest 2 views (01/24/2024 9:25 AM EST) Anatomical Region Laterality Modality Chest Radiographic Bianca ging 01/24/2024 9:25 AM EST Narrative 01/24/2024 9:24 AM EST THIS EXAM WAS PERFORMED AT [facility] Clinical history: Shortness of breath, generalized edema. [...] 01/24/2024 9:24 AM Procedure Note Radiology, Radiologist, - 01/24/2024 THIS EXAM WAS PERFORMED AT [facility] Clinical history: Shortness of breath, generalized edema. [...] on filedocumented in this encounter Care Teams Securities Counselor Relationship Specialty Start Date End Date Lamont Blair MD PCP - General Family Medicine 03/14/23 04/21/24 Unallocated, Noms MD Anoop [address] [place] [address] PCP - General [facility] Medicine 04/22/24 07/31/24 Lamont Blair MD [address] [place] [address] PCP - [facility] 05/21/2401/19 documented as of this encounter
--- OUTSIDE RECORDS SUMMARY | 2024-12-01 03:46 | XMS_ITS | Encounter Summary ---
Author Organization [facility] Address [id number] [address] [place] [address] Care Team Providers Care Bar Steward Name Role Phone Corine Gold MD Primary Care Provider [phone] Encounter Details Date Type Department Care Team (Late st Contact Info) Description 11/12/2020 Telephone [facility] [address] [place] [phone] Ivy Zafar, IMMIGRATION SERVICES OFFICER-BALL MILL MIXER [address] [place] [address] Social History Tobacco Use Types Packs/Day Years [...] Visit [facility] [address] [place] [phone] Corine Gold MD [address] [place], [place] [phone] 12/17/2024 9:30 AM EDT Office Visit [facility] [address] [phone] Mariah Peña DO [address] [address] documented as of this encounter Visit Diagnoses Not on filedocumented in this encounter Additional Health Concerns Infection Onset Date Last Indicated Resolved Time Enteric Rule-Out 02/10/2024 02/10/2024 02/10/2024 4:50 AM EST COVID-19 Rule-Out 02/10/2024 02/09/2024 02/10/2024 3:36 AM EST Assessment Noted Time PHQ-9 Depression Total Score: 14 021 1:59 PM EDT documented as of this encounter Care Teams Bar Steward Relationship Specialty Start Date End Date Corine Gold MD [address] [place], [place] [phone] PCP - General Internal Medicine 03/25/24 documented as of this encounter
--- OUTSIDE RECORDS SUMMARY | 2024-12-01 03:46 | XMS_ITS | Encounter Summary ---
Author Organization [facility] [email or web address] [facility] tem Address [id number] [address] [place] [address] Care Team Providers Care Shagger Name Role Phone Corine Gold MD Primary Care Provider [phone] Encounter Details Date Type Department Care Team (Late st Contact Info) Description 05/19/2022 Telephone [facility] - Family Medicine [address] [place] [phone] Alba Guadalupe, FAMILY DAY CARE WORKER-LANGUAGE THERAPIST [address] [place] [address] Social History Tobacco Use Types Packs/Day Years [...] Visit [facility] [address] [place] [phone] Corine Gold MD [address] [place] [address] 12/17/2024 9:30 AM EDT Office Visit [facility] [address] [address] Mariah Peña DO [address] [address] documented as of this encounter Visit Diagnoses Not on filedocumented in this encounter Additional Health Concerns Infection Onset Date Last Indicated Resolved Time Enteric Rule-Out 02/10/2024 02/10/2024 02/10/2024 4:50 AM EST COVID-19 Rule-Out 02/10/2024 02/09/2024 02/10/2024 3:36 AM EST Assessment Noted Time PHQ-9 Depression Total Score: 0 03/03/19 23 1:33 PM EST documented as of this encounter Care Teams Shagger Relationship Specialty Start Date End Date Corine Gold MD [address] [place] [address] PCP - General Internal Medicine 03/25/24 documented as of this encounter
--- OUTSIDE RECORDS SUMMARY | 2024-12-01 03:46 | XMS_ITS | Encounter Summary ---
Author Organization [facility] Address [id number] [address] [place] [address] Care Team Providers Care Research Aide Name Role Phone Corine Gold MD Primary Care Provider [phone] Encounter Details Date Type Department Care Team (Late Contact Info) Description 06/07/2022 Telephone [facility] - Family Medicine [address] [place] [address] Angélica Weber, UMANG-CUSTOMER CONSULTANT [address] [place] [address] Social History Tobacco Use Types Packs/Day Years [...] Upcoming Encounters Date Type Department Care Team ([facility] Contact Info) Description 12/10/2024 2:30 PM EDT Office Visit [facility] [address] [place] [phone] Corine Gold MD [address] [place], [place] [phone] 12/17/2024 9:30 AM EDT Office Visit [facility] [address] [phone] Mariah Peña DO [address] [address] documented as of this encounter Visit Diagnoses Not on filedocumented in this encounter Additional Health Concerns Infection Onset Date Last Indicated Resolved Time Enteric Rule-Out 02/10/2024 02/10/2024 02/10/2024 4:50 AM EST COVID-19 Rule-Out 02/10/2024 02/09/2024 02/10/2024 3:36 AM EST Assessment Noted Time PHQ-9 Depression Total Score: 0 03/03/19 23 1:33 PM EST documented as of this encounter Care Teams Research Aide Relationship Specialty Start Date End Date Corine Gold MD [address] [place], [place] [phone] PCP - General Internal Medicine 03/25/24 documented as of this encounter
--- OUTSIDE RECORDS SUMMARY | 2024-12-01 03:46 | XMS_ITS | Encounter Summary ---
Author Organization [facility] Address [address] [place] [address] Care Team Providers Care Crib Pad Maker Name Role Phone Unallocated, Noms Provider Primary Care Provi mahsa Lamont Blair MD Unavailable Encounter Details Date Type Department Care Team (Late st Contact Info) Description 04/29/2024 Orders Only [facility] [address] [place] [address] Leonor Reeder MA Social History Tobacco [...] week 01/23/2024 How often do you attend [facility] or baptist services? More than 4 times per year 01/23/2024 Do you belong to any clubs o r organizations such as presybeterian groups, unions, fraternal or athletic groups, or [...] Recorded Patient Health Questionnaire-2 Score 2 03/21/2023 [facility] - Occupational Stress Questionnaire Answer Date Recorded [...] AM EST) Swab Cervical swab / Unknown us Zay Blas DO LAB CYTOLOGY ORDERABLES Final Re sult EXTERNAL LAB documented in this encounter Visit Diagnoses Not on filedocumented in this encounter Care Teams Crib Pad Maker Relationship Specialty Start Date End Date Unallocated, Noms MD Anoop [address] [place] [address] PCP - General Family Medicine 04/22/24 07/31/24 Lamont Blair MD [address] [place] [address] PCP - [facility] 05/21/2401/19 documented as of this encounter
--- OUTSIDE RECORDS SUMMARY | 2024-12-01 03:46 | XMS_ITS | Encounter Summary ---
Author Organization [facility] Address [id number] [address] [place] [address] Care Team Providers Care Consultative Sales Associate Name Role Phone Corine Gold MD Primary Care Provider [phone] Reason for Visit * Reason Onset Date Comments reschedule 06/19/2020 Encounter Details Date Type Department Care Team (Late st Contact Info) Description 06/19/2020 Telephone [facility] [address] [place] [address] Katina Horne reschedule Social History [...] would call back once she had her paint pourer. Please reschedule patients appt to a Monday [...] Office Visit [facility] [address] [place] [phone] Corine Gold MD [address] [place], [place] [phone] 12/17/2024 9:30 AM EDT Office Visit [facility] [address] [phone] Mariah Peña DO [address] [address] documented as of this encounter Visit Diagnoses Not on filedocumented in this encounter Additional Health Concerns Infection Onset Date Last Indicated Resolved Time Enteric Rule-Out 02/10/2024 02/10/2024 02/10/2024 4:50 AM EST COVID-19 Rule-Out 02/10/2024 02/09/2024 02/10/2024 3:36 AM EST Assessment Noted Time PHQ-9 Depression Total Score: 14 05/06/ 021 1:59 PM EDT documented as of this encounter Care Teams Consultative Sales Associate Relationship Specialty Start Date End Date Corine Gold MD [address] [place], [place] [phone] PCP - General Internal Medicine 03/25/24 documented as of this encounter
--- OUTSIDE RECORDS SUMMARY | 2024-12-01 03:46 | XMS_ITS | Encounter Summary ---
Author Organization [facility] Address [address] [place] [address] Care Team Providers Care Personal Lines Insurance Agent Name Role Phone Lamont Blair MD Primary Care Provider [phone] Unallocated, Noms Provider Primary Care Provi mahsa Lamont Blair MD Unavailable Encounter Details Date Type Department Care Team (Late st Contact Info) Description 01/01/2024 Orders Only [facility] [address] [place] [address] Lamont Blair MD [address] [place] [address] Social History Tobacco Use Types Packs/Day Years [...] on filedocumented in this encounter Care Teams Personal Lines Insurance Agent Relationship Specialty Start Date End Date Lamont Blair MD PCP - General Family Medicine 03/14/23 04/21/24 Unallocated, Noms MD Anoop [address] [place] [address] PCP - General [facility] Medicine 04/22/24 07/31/24 Lamont Blair MD [address] [place] [address] PCP - [facility] 05/21/2401/19 documented as of this encounter
--- OUTSIDE RECORDS SUMMARY | 2024-12-01 03:46 | XMS_ITS | Encounter Summary ---
Author Organization [facility] Address [id number] [address] [place] [address] Care Team Providers Care Office Technologist Name Role Phone Corine Gold MD Primary Care Provider [phone] Encounter Details Date Type Department Care Team (Late st Contact Info) Description 09/02/2020 Orders Only [facility] [address] [place] [phone] Ivy Zafar, MUD CLEANER OPERATOR-STRIPER MACHINE [address] [place] [address] Social History Tobacco Use Types Packs/Day Years [...] Visit [facility] [address] [place] [address] Corine Gold MD [address] [place], [place] [address] 12/17/2024 9:30 AM EDT Office Visit [facility] [address] [address] Mariah Peña DO [address] [address] documented as of this encounter Visit Diagnoses Not on filedocumented in this encounter Additional Health Concerns Infection Onset Date Last Indicated Resolved Time Enteric Rule-Out 02/10/2024 02/10/2024 02/10/2024 4:50 AM EST COVID-19 Rule-Out 02/10/2024 02/09/2024 02/10/2024 3:36 AM EST Assessment Noted Time PHQ-9 Depression Total Score: 14 021 1:59 PM EDT documented as of this encounter Care Teams Office Technologist Relationship Specialty Start Date End Date Corine Gold MD [address] [place], [place] [phone] PCP - General Internal Medicine 03/25/24 documented as of this encounter
--- OUTSIDE RECORDS SUMMARY | 2024-12-01 03:46 | XMS_ITS | Encounter Summary ---
Author Organization [facility] Address [id number] [address] [place] [address] Care Team Providers Care Disaster Recovery Specialist Name Role Phone Corine Gold MD Primary Care Provider [phone] Encounter Details Date Type Department Care Team (Late st Contact Info) Description 08/17/2020 Orders Only [facility] [address] [place] [phone] Ivy Zafar, ADVISOR ADVOCATE ANGEL CO FOUNDER-ELECTRICAL INTEGRATOR [address] [place] [address] Social History Tobacco Use Types Packs/Day Years [...] Visit [facility] [address] [place] [phone] Corine Gold MD [address] [place], [place] [address] 12/17/2024 9:30 AM EDT Office Visit [facility] [address] [address] Mariah Peña DO [address] [address] documented as of this encounter Visit Diagnoses Not on filedocumented in this encounter Additional Health Concerns Infection Onset Date Last Indicated Resolved Time Enteric Rule-Out 02/10/2024 02/10/2024 02/10/2024 4:50 AM EST COVID-19 Rule-Out 02/10/2024 02/09/2024 02/10/2024 3:36 AM EST Assessment Noted Time PHQ-9 Depression Total Score: 14 021 1:59 PM EDT documented as of this encounter Care Teams Disaster Recovery Specialist Relationship Specialty Start Date End Date Corine Gold MD [address] [place], [place] [phone] PCP - General Internal Medicine 03/25/24 documented as of this encounter
--- OUTSIDE RECORDS SUMMARY | 2024-12-01 03:46 | XMS_ITS | Encounter Summary ---
Author Organization [facility] Address [address] [place] [address] Care Team Providers Care Polymerization Supervisor Name Role Phone Lamont Blair MD Primary Care Provider [phone] Unallocated, Noms Provider Primary Care Provi mahsa [...] week 01/23/2024 How often do you attend [facility] or sh[facility] services? More than 4 times per year 01/23/2024 Do you belong to any clubs o r organizations such as latter day groups, unions, [...] Recorded Patient Health Questionnaire-2 Score 2 03/21/2023 [facility] - Occupational Stress Questionnaire Answer Date [...] any time in the past 12 m [facility], were you homeless or living in a skilled nursing (including now)? No 01/23/2024 Comments No Sex [...] EST Narrative 02/19/2024 8:08 [place] [address] Ultrasound Report Signed Patient: MARGARET NICHOLSON MR#: [id number] : 1995 Acct:[id number] Age/Sex: 28 / F ADM Date: 02/19/24 Loc: US Attending Dr: Brenda Blas D.O. Ordering Physician: Brenda Blas D.O. Date of Service: 02/19/24 Procedure(s): US pelvis w/ transvaginal Accession Number(s): [id number] cc: Brenda Blas D.O.; Lamont Blair M.D. The [address] [address] Patient Name: MARGARET NICHOLSON MRN: [id number] date: 1995 Sex: F Assigned Patient Location: US Current Patient Location: [place] Accession/Order Number: [id number] Exam Date: 02/19/2024 07:11 Report Date: 02/19/2024 [...] M.D. Signed By: 02/19/24807 DD/ 4 TD/TT: Agency Sales Development Associate: Procedure Note Radiology, Radiologist, MD - 02/19/2024 [place] [address] Ultrasound Report Signed Patient: MARGARET NICHOLSON LMR#: [id number] : 1995Acct:[id number] Age/Sex: 28 / FADM Date: 02/19/24 Loc: US Attending Dr: Brenda Blas D.O. Ordering Physician: Brenda Blas D.O. Date of Service: 02/19/24 Procedure(s): US pelvis w/ transvaginal Accession Number(s): [id number] cc: Brenda Blas D.O.; Lamont Blair M.D. [place] [id number] Patient Name: MARGARET NICHOLSON MRN: [id number] date: 1995 Sex: F Assigned Patient Location: [place] Current Patient Location: [place] Accession/Order Number: [id number] Exam Date: 02/19/2024 07:11 Report Date: 02/19/2024 [...] Ibrahim M.D. Signed By:02/19/24807 DD/ 4 TD/TT: Agency Sales Development Associate: us Generic External Data Provider [facility] Final Result documented in this encounter Visit Diagnoses Not on filedocumented in this encounter Care Teams Polymerization Supervisor Relationship Specialty Start Date End Date Lamont Blair MD PCP - General Family Medicine 03/14/23 04/21/24 Unallocated, Noms MD Anoop [address] [place] [address] PCP - General [facility] Medicine 04/22/24 07/31/24 Lamont Blair MD [address] [place] [address] PCP - [facility] 05/21/2401/19 documented as of this encounter
--- OUTSIDE RECORDS SUMMARY | 2024-12-01 03:46 | XMS_ITS | Encounter Summary ---
Author Organization [facility] Address [address] [place] [address] Care Team Providers Care Field Crops Harvest Machine Operator Name Role Phone Abdifatah Brady (Historical) Primary Care Provide r Unavailable Source Comments In the event this information is protected by the Federal Confidentiality of Alcohol and Drug AbusePatient Records regulations: The Federal rules restrict any use of the information to criminally investigate or prosecute any alcohol or drug abuse patient.[facility] Reason for Visit * Reason Comments Refill Request Encounter Details Date Type Department Care Team (Late st Contact Info) Description 11/16/2024 Refill Neurology [address] [place] [address] Griffin Lepe PA-C [address] [place] [address] Refill Request Social History Tobacco Use Types Packs/Day Years Used Date Smoking Tobacco: Never Smokeless Tobacco: Never PHQ-2 Answer Date Recorded PHQ-2 score 2 09/23/2024 Area Deprivation Index Answer Date Zi rded National Score (1-100), lower number is lower ri sk 94 06/23/2022 State Score (1-10), lower number is lower risk 9 06/23/2022 Data from: https://www.neighborhoodatlas.medicine.[facility]/. Last address used for calculation [address] [...] encounter Miscellaneous Notes * Telephone Encounter - Troy Gibbslei - 11/18/2024 11:32 AM EDT Physician: Roberth Call from pharmacy requesting refill. Please E-Scribe Last office visit 09/24/24 with Roberth pettit Next office visit 11/26/24 with Carmen pettit Requested Prescriptions Pending Prescriptions Disp Refills scopolamine (TRANSDERM-SCOP) patch 1.5 mg/72 hr (delivers 1 mg over 3 days) [Pharmacy Med Name: scopolamine 1 mg over 3 days transdermal patch] 4 patch 2 Sig: apply 1 patch behind the EAR at least FOUR HOURS prior to exposure and every 3 (THREE) days ASNEEDED Pharmacy Name: [facility] documented in this encounter Plan of Treatment Upcoming Encounters Date Type Department Care Team (Latest Contact Info) Description 12/04/2024 11:00 AM EDT [facility] Neurology [address] [place] [address] Tyrone Dolan MD, PhD [address] [facility] [address] [place] [address] [facility] 12/11/2024 9:30 AM EDT [facility]fusion [facility] Neurology [address] [place] [address] [facility] 02/25/2025 10:00 AM EST Office Visit Neurology [address] [facility] [address] [place] [address] Basil Cornelius, [address] [place] [address] New patient reestablish care documented as of this encounter Visit Diagnoses Diagnosis Intractable chronic migraine without aura and with status migrainosus Chronic migraine without aura, with intractable migraine, so stated, with status migrainosus Nausea Nausea alone documented in this encounter Care Teams Field Crops Harvest Machine Operator Relationship Specialty Start Date End Date Abdifatah Brady (Historical) PCP - General 05/21/13 documented as of this encounter
--- OUTSIDE RECORDS SUMMARY | 2024-12-01 03:46 | XMS_ITS | Encounter Summary ---
Author Organization [facility] Address [id number] [address] [place] [address] Care Team Providers Care Forensic Investigator Name Role Phone Corine Gold MD Primary Care Provider [phone] Encounter Details Date Type Department Care Team ([facility] Contact Info) Description 05/29/2019 Telephone Maternal- Medicine at [facility] [address] [facility] [place] [address] Radha Matson LPN Social History [...] Upcoming Encounters Date Type Department Care Team ([facility] Contact Info) Description 12/10/2024 2:30 PM EDT Office Visit [facility] [address] [place] [phone] Corine Gold MD [address] [place] [address] 12/17/2024 9:30 AM EDT Office Visit [facility] [address] [phone] Mariah Peña DO [address] [address] documented as of this encounter Visit Diagnoses Not on filedocumented in this encounter Additional Health Concerns Infection Onset Date Last Indicated Resolved Time Enteric Rule-Out 02/10/2024 02/10/2024 02/10/2024 4:50 AM EST COVID-19 Rule-Out 02/10/2024 02/09/2024 02/10/2024 3:36 AM EST documented as of this encounter Care Teams Forensic Investigator Relationship Specialty Start Date End Date Corine Gold MD [address] [facility] [place] [place], [place] [address] PCP - General Internal Medicine 03/25/24 documented as of this encounter
--- OUTSIDE RECORDS SUMMARY | 2024-12-01 03:46 | XMS_ITS | Encounter Summary ---
Author Organization [facility] Address [id number] [address] [place] [address] Care Team Providers Care Day Care Center Director Name Role Phone Corine Gold MD Primary Care Provider [phone] Encounter Details Date Type Department Care Team (Late st Contact Info) Description 03/21/2024 Telephone [facility] [address] [address] Malia Mason RN Social History [...] Mason RN - 03/21/2024 3:51 PM EST Manager Global attempted to contact patient. No answer. Left message for patient to contact office regarding RAP result. Left office phone number for reference. 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 Recommend continue Singulair and Zyrtec. Consider air purifier for home and hypoallergenic pillow. Could offer service delivery analyst referral as well if patient agreeable. ----- Message from Dr. Mariah Peña DO sent at 03/21/2024 2:04 PM EST ----- Please update patient that she has multiple moderate allergies to environment and she is highly sensitized to dogs and cats- avoidance would be advised. Recommend continue Singulair and Zyrtec. Consider air purifier for home and hypoallergenic pillow. Could offer service delivery analyst referral as well if she is agreeable. documented in this encounter Plan of Treatment Upcoming Encounters Date Type Department Care Team (Late st Contact Info) Description 12/10/2024 2:30 PM EDT Office Visit [facility] [address] [place] [phone] Corine Gold MD [address] [place] [phone] 12/17/2024 9:30 AM EDT Office Visit [facility] [address] [address] Mariah Peña DO [address] [address] documented as of this encounter Visit Diagnoses Not on filedocumented in this encounter Additional Health Concerns Assessment Noted Time PHQ-9 Depression Total Score: 0 01/12/20 23 1:33 PM EST documented as of this encounter Care Teams Day Care Center Director Relationship Specialty Start Date End Date Corine Gold MD [address] [place] [address] PCP - General Internal Medicine 03/25/24 documented as of this encounter
--- OUTSIDE RECORDS SUMMARY | 2024-12-01 03:46 | XMS_ITS | Encounter Summary ---
Author Organization [facility] Address [id number] [address] [place] [address] Care Team Providers Care Saas Architect Name Role Phone Corine Gold MD Primary Care Provider Encounter Details Date Type Department Care Team (Late st Contact Info) Description 06/17/2021 Telephone [facility] [address] [place] [address] Aide Smalls RN Social History [...] with resident clinic if interested ?? Karla UMANG * Telephone Encounter - Aide Brink RN [...] Office Visit [facility] [address] [place] [address] [place] [phone] Corine Gold MD [address] [place], [place] [address] 12/17/2024 9:30 AM EDT Office Visit [facility] [address] [phone] Mariah Peña DO [address] [address] documented as of this encounter Visit Diagnoses Not on filedocumented in this encounter Additional Health Concerns Infection Onset Date Last Indicated Resolved Time Enteric Rule-Out 02/10/2024 02/10/2024 02/10/2024 4:50 AM EST COVID-19 Rule-Out 02/10/2024 02/09/2024 02/10/2024 3:36 AM EST Assessment Noted Time PHQ-9 Depression Total Score: 14 021 1:59 PM EDT documented as of this encounter Care Teams Saas Architect Relationship Specialty Start Date End Date Corine Gold MD [address], [facility] [place] [address] PCP - General Internal Medicine 03/25/24 documented as of this encounter
--- OUTSIDE RECORDS SUMMARY | 2024-12-01 03:46 | XMS_ITS | Clinical Summary ---
Author Organization [facility] Address [address] [facility] [place] [address] Care Team Providers Care Correctional Casework Specialist Name Role Phone Corine Gold MD Primary Care Provider Unavail able Social History Tobacco Use Types Packs/Day Years [...] - 3-dose SCDM series) 11/13/2022 COVID-19 Vaccine (1 - 2023- season) 2024 Influenza Vaccine (#1) 2024 6, 11/27/2014, 10/23/2012, [...] on patient's age to complete this topic RSV Antibodies Aged Out No longer sid gible based on patient's age to complete this topic Rotavirus Vaccine Aged Out No longer eligible based on patient's age to complete this topic Care Teams Correctional Casework Specialist Relationship Specialty Start Date End Date Corine Gold MD [address], [place] [address] PCP - General Family Medicine 06/11/24
--- OUTSIDE RECORDS SUMMARY | 2024-12-01 03:46 | XMS_ITS | Encounter Summary ---
Author Organization [facility] Address [id number] [address] [place] [address] Care Team Providers Care Eye Care Professional Name Role Phone Corine Gold MD Primary Care Provider [phone] Encounter Details Date Type Department Care Team (Late st Contact Info) Description 03/10/2021 Orders Only [facility] [address] [place] [phone] Ivy Zafar, SEISMOGRAPH RECORDER-ALLERGIST [address] [place] [address] Chronic mixed headache syndrome Social History Tobacco [...] [facility] [address] [place] [phone] Corine Gold MD [address] [place], [place] [address] 12/17/2024 9:30 AM EDT Office Visit [facility] [address] [phone] Mariah Peña DO [address] [address] documented as of this encounter Visit Diagnoses [...] documented as of this encounter Care Teams Eye Care Professional Relationship Specialty Start Date End Date Corine Gold MD [address] [place], [place] [address] PCP - General Internal Medicine 03/25/24 documented as of this encounter
--- OUTSIDE RECORDS SUMMARY | 2024-12-01 03:46 | XMS_ITS | Encounter Summary ---
Author Organization [facility] Address [facility] [place]-[id number] [address] [place] [address] Care Team Providers Care Portfolio Assistant Name Role Phone Corine Gold MD Primary Care Provider [phone] Encounter Details Date Type Department Care Team (Late st Contact Info) Description 11/25/2020 Orders Only [facility] [address] [place] [phone] Ivy Zafar, SHUTTLE INSPECTOR-ORACLE AGILE PLM CONSULTANT [address] [place] [address] Social History Tobacco Use Types Packs/Day Years [...] Visit [facility] [address] [place] [phone] Corine Gold MD [address] [place], [place] [address] 12/17/2024 9:30 AM EDT Office Visit [facility] [address] [phone] Mariah Peña DO [address] [address] documented as of this encounter Visit Diagnoses Not on filedocumented in this encounter Additional Health Concerns Infection Onset Date Last Indicated Resolved Time Enteric Rule-Out 02/10/2024 02/10/2024 02/10/2024 4:50 AM EST COVID-19 Rule-Out 02/10/2024 02/09/2024 02/10/2024 3:36 AM EST Assessment Noted Time PHQ-9 Depression Total Score: 14 021 1:59 PM EDT documented as of this encounter Care Teams Portfolio Assistant Relationship Specialty Start Date End Date Corine Gold MD [address] [place], [place] [address] PCP - General Internal Medicine 03/25/24 documented as of this encounter
--- OUTSIDE RECORDS SUMMARY | 2024-12-01 03:46 | XMS_ITS | Encounter Summary ---
Author Organization [facility] Sys tem Address [id number] [address] [place] [address] Care Team Providers Care Rn Quality Name Role Phone Corine Gold MD Primary Care Provider [phone] Encounter Details Date Type Department Care Team (Late st Contact Info) Description 08/18/2021 Telephone [facility] [address] [place] [address] Suzan Cason RN Social History [...] PM EDT PA has been sent into [place] [employer] plan for ONB and TPI's. documented in this encounter Plan of Treatment Upcoming Encounters Date Type Department Care Team (Late st Contact Info) Description 12/10/2024 2:30 PM EDT Office Visit [facility] [address] [place] [phone] Corine Gold MD [address] [place] [address] 12/17/2024 9:30 AM EDT Office Visit [facility] Pul[facility]/Sleep Medicine [address] [address] Mariah Peña DO [address] [address] documented as of this encounter Visit Diagnoses Not on filedocumented in this encounter Additional Health Concerns Infection Onset Date Last Indicated Resolved Time Enteric Rule-Out 02/10/2024 02/10/2024 02/10/2024 4:50 AM EST COVID-19 Rule-Out 02/10/2024 02/09/2024 02/10/2024 3:36 AM EST Assessment Noted Time PHQ-9 Depression Total Score: 14 021 1:59 PM EDT documented as of this encounter Care Teams Rn Quality Relationship Specialty Start Date End Date Corine Gold MD [address], [place] [address] PCP - General Internal Medicine 03/25/24 documented as of this encounter
--- OUTSIDE RECORDS SUMMARY | 2024-12-01 03:46 | XMS_ITS | Clinical Summary ---
Author Organization [facility] Address [address] [place] [address] Care Team Providers Care Manager Chinese Name Role Phone Lamont Blair MD Unavailable [...] every 6 (six) hours if needed (pain) 02/06/20 25 Active albuterol (2.5 MG/3ML) 0.083% nebulizer solution Inhale 2.5 mg 4 (four) times a day as needed 03/20/19 25 Active albuterol HFA 90 mcg/act inhaler Inhale 2 puffs every 4 (four) hours if needed 05/28/19 25 Active amitriptyline (Elavil) 100 MG tablet Take 100 mg by mouth at bedtime 06/25/19 25 Active baclofen (Lioresal) 10 MG tablet Take 10 mg by mouth at bedtime Active chlorzoxazone (Parafon Forte) 500 MG tablet Take 500 mg by mouth 2 (two) times a day as needed for muscle spasms 06/01/19 25 Active diazePAM (Valium) 10 MG tablet Take 10 mg by mouth 1 (one) time each day at the same time Active fluticasone (Flonase) 50 MCG/ACT nasal spray Administer 1 spray into each nostril Daily 06/11/19 25 Active ibuprofen 800 MG tablet Take 800 mg by mouth every 6 (six) hours if needed for moderate pain 04/15/19 25 Active ketoconazole (NIZOral) 2 % shampoo Apply 1 Application topically 2 (two) times a week 04/26/19 25 Active ketorolac (Toradol) 10 MG tablet Take 10 mg by mouth every 8 (eight) hours if needed for mild pain 06/23/19 25 Active loratadine (Claritin) 10 MG tablet Take 10 mg by mouth Daily as needed 06/07/19 25 Active omeprazole (PriLOSEC) [address] capsule Take 40 mg by mouth Daily 03/20/19 25 Active ondansetron ODT (Zofran-ODT) 4 MG disintegrating tablet Take 4 mg by mouth every 6 (six) hours if needed for nausea Active scopolamine (Transderm-Scop) 1 mg/72 hr patch [address] 1 patch on the skin every 3rd (third) day Active Ubrelvy 100 MG tablet Take 100 mg by mouth if needed (migraine) 05/04/19 25 Active carBAMazepine XR (TEGretol XR) 100 MG 12 hr tablet Take 100 mg by mouth in the morning and 100 mg before bedtime. 08/29/19 25 Active trimethoprim-polym yxin b (Polytrim) ophthalmic solution 07/25/19 Active estradiol (Estrace) 1 MG tabletIndications: Low libido,Dyspareunia in female Take 1 tablet (1 mg) by mouth in the morning. 90 tablet 10/17/19 Active progesterone (Prometrium) 100 MG capsuleIndications :Hot flashes due to surgical menopause Take 1 capsule (100 mg) by mouth Daily 30 capsule 10/17/19 Active estradiol (Estrace) 0.1 MG/GM vaginal creamIndications:V aginal dryness Insert 2 g into the vagina at bedtime At bedtime for 2 weeks, then at bedtime twice a week. 42.5 g 10/17/19 Active Active Problems Problem Noted Date Diagnosed [...] Encounters Date Type Department Care Team Description 2024 Telephone [facility] [address] [place] [address] Zay Blas DO 10/31/2024 Telephone [facility] [address] [place] [address] Zeb Ammy, [place] 09/30/2024 Telephone [facility] [address] [place] [address] Ammy Carrington, [place] 09/30/2024 Telephone [facility] [address] [place] [address] Zeb Ammy, [place] 09/03/2024 10:20 AM EDT Office Visit [facility] [address] [place] [address] Zay Blas DO Hot flashes due to surgical menopause 09/03/2024 Bamboo flowsheet [facility] [address] [place] [address] Zay Blas DO from Last 3 Months [...] 01/23/2024 How often do you attend chur or scientology services? More than 4 times per year 01/23/2024 Do you belong to any clubs o r organizations such as druze groups, unions, fraternal or athletic groups, or [...] Recorded Patient Health Questionnaire-2 Score 2 03/21/2023 [facility] - Occupational Stress Questionnaire Answer Date [...] any time in the past [address] [facility], were you homeless or living in a chcf (including now)? No 01/23/2024 Comments No Sex [...] 02/09/2024 10:38 AM EST Plan of Treatment Health Maintenance Due Date Last Done Comments Influenza Vaccine (#1) 2024 8, 12/31/2015, 11/27/2014, Additional history exists Insurance [employer] Care Teams Manager Chinese Relationship Specialty Start Date End Date Lamont Blair MD [address] [place] [address] [facility] 05/21/2401/19
--- OUTSIDE RECORDS SUMMARY | 2024-12-01 03:46 | XMS_ITS | Clinical Summary ---
Author Organization [facility] Address [address] [place] [address] Care Team Providers Care Pruner Name Role Phone Abdifatah Brady (Historical) Primary [...] 01/07/2022 Metoclopramide Intolerance 12/03/2021 Vortioxetine Hives 08/06/2021 Medications diazePAM (VALIUM) 10 mg tablet 11/24/19 22 Active albuterol sulfate 90 mcg/actuation breath activated powder inhaler Inhale 2 Puffs as instructed every 6 hours as needed for wheezing/short ness of breath. 08/16/19 24 Active magnesium oxide 400 mg magnesium cap Take 1 capsule by mouth daily at bedtime. 90 capsule 3 06/05/19 25 Active promethazine (PHENERGAN) 25 mg tabletIndicatio ns:Intractable chronic migraine without aura and without status migrainosus Take 1 tablet by mouth every 4 hours as needed. FOR NAUSEA 90 tablet 06/05/19 25 Active keTORolac (TORADOL) 10 mg tablet Take 1 tablet by mouth every 6 hours as needed (severe migraine). 20 tablet 06/05/19 25 Active chlorzoxazone (PARAFON FORTE DSC) 500 mg tablet Take 1 tablet by mouth two times a day as needed for muscle spasm (migraine). 20 tablet 06/05/19 25 Active ZOLMitriptan (ZOMIG) 5 mg nasal spray Use 1 [place] in the nose as needed at onset of migraine headache. If symptoms persist or return, may repeat dose in other nostril after 2 hours. Maximum of 2 sprays per 24 hours 12 each 06/05/19 25 Active zavegepant (ZAVZPRET) 10 mg/actuation nasal sprayIndication s:Intractable chronic migraine without aura and with status migrainosus Use one nasal spray at migraine onset. May use once per 24 hours. 6 each 5 8:59 AM EDT 08/03/19 25 Active carBAMazepine XR (TEGRETOL XR) 100 mg 12 hr tablet Take 100 mg by mouth two times a day. 08/21/19 25 Active desvenlafaxine ER (PRISTIQ) 50 mg 24 hr tablet Take 50 mg by mouth once daily. 09/24/19 25 Active estradiol (ESTRACE) 1 mg tablet Take 1 mg by mouth every morning. Active progesterone micronized (PROMETRIUM) 100 mg capsule Take 100 mg by mouth once daily. 09/04/19 25 026 Active scopolamine (TRANSDERM-SCOP ) patch 1.5 mg/72 hr (delivers 1 mg over 3 days)Indication s:Intractable chronic migraine without aura and with status migrainosus,Ovi sea apply 1 patch behind the EAR at least FOUR HOURS prior to exposure and every 3 (THREE) days NEEDED 4 patch 2 11/19/19 25 Active scopolamine (TRANSDERM-SCOP ) patch 1.5 mg/72 hr (delivers 1 mg over 3 days)Indication s:Intractable chronic migraine without aura and with status migrainosus,Ovi sea Apply 1 Patch as directed every 72 hours. APPLY 1 DISC BEHIND THE EAR AT LEAST 4 HOURS PRIOR TO EXPOSURE AND EVERY 3 DAYS NEEDED. 4 Patch 2 05/11/19 25 025 Discontinued Active Problems Problem Noted Date Diagnosed Date Intractable chronic migraine without aura and without status migrainosus 09/19/2023 Chronic migraine without aur a, with intractable migraine, so stated, with status migrainosus 03/22/2023 Intractable chronic migraine without aura and with status migrainosus 06/24/2022 Seizure-like activity 04/01/2022 Psychogenic nonepileptic seizure 10/20/2021 Encounters Date Type Department Care Team Description 11/26/2024 1:45 PM EDT [facility] Neurology Headache [facility] [address] [place] [address] Raiza Morales APRN.SPECIAL AGENT IN CHARGE Intractable chronic migraine without aura and with status migrainosus 11/26/2024 Patient Msg Neurology [address] [place] [address] Provider, Cc [facility] 11/26/2024 Travel 11/16/2024 Refill Neurology [address] [place] [address] Griffin Lepe PA-C Refill Request 09/24/2024 10:00 AM EDT [facility] Neurology [address] [place] [address] Griffin Lepe PA-C Intractable chronic migraine without aura and with status migrainosus (Primary Dx); Dysautonomia (HCC); Menopausal and perimenopausal disorder; Unspecified mood (affective) disorder 09/23/2024 Travel 09/02/2024 Orders Only Neurology Headache [facility] [address] [place] [address] Sagar Barth APRN.SPECIAL AGENT IN CHARGE Intractable chronic migraine without aura and without status migrainosus (Primary Dx) from Last 3 Months Social History Tobacco Use Types Packs/Day Years Used Date Smoking Tobacco: Never Smokeless Tobacco: Never Tobacco Cessation:Counseling Given: Not Answered PHQ-2 Answer Date Recorded PHQ-2 score 2 11/26/2024 Area Deprivation Index Answer Date Zi rded National Score (1-100), lower number is lower ri 94 06/23/2022 State Score (1-10), lower number is lower risk 9 06/23/2022 Data from: https://www.neighborhoodatlas.medicine.[facility].edu/. Last address used for calculation [address] [...] Contact Info) Description 12/04/2024 11:00 AM EDT [facility] Neurology [address] [place] [phone] Tyrone Dolan MD, PhD [address] [facility] [address] [place] [address] [place] 12/11/2024 9:30 AM EDT Infusion Center Neurology [address] [place] [address] [facility] 02/25/2025 10:00 AM EST Office Visit Neurology [address] [facility] [address] [place] [address] Basil Cornelius DO [address] [place] [address] New patient reestablish care Health Maintenance Due Date Last Done Comments Anxiety Screening 11/13/2013 Depression Screening 11/13/2013 HIV Screening 11/13/2013 Hepatitis C Screening 11/13/2013 Cervical Cancer Screening 11/13/2016 Covid-19 Vaccine (2024-2 6 season) 2024 Influenza Vaccine (#1) 2024 8, 12/31/2015, 11/27/2014, Additional history exists DTaP,Tdap,Td Vaccine (8 - Td or Tdap) 09/20/2025 09/21/2015, 10/24/2013, 09/07/2001, Additional history exists Hepatitis B Vaccine Completed 10/25/2002, 05/06/1996, 1995, Additional history exists HPV Vaccine Completed 05/22/2012, 12/23, 11/15/[address] [facility] MEDICAID [facility] Member Subscriber Plan / Payer (Ef fective 2022-Present) Name:Coni Nicholson Relation to Subscriber:Self Name:Coni Nicholson Pradeep Payer ID:[id number] (NAIC) Group ID:Not on file Type:Medicaid Address: [place] [id number] Care Teams Pruner Relationship Specialty Start Date End Date Abdifatah Brady (Historical) PCP - General 05/21/13
--- OUTSIDE RECORDS SUMMARY | 2024-12-01 03:46 | XMS_ITS | Encounter Summary ---
Author Organization [facility] Sys tem Address [id number] [address] [place] [address] Care Team Providers Care Drilling Machine Runner Name Role Phone Corine Gold MD Primary Care Provider [phone] Encounter Details Date Type Department Care Team (Late st Contact Info) Description 05/12/2020 Telephone [facility] [address] [place] [phone] Ivy Zafar, ENGINEHOUSE BRAKEMAN-CLIENT EXPERIENCE ADMINISTRATOR [address] [place] [address] Social History Tobacco Use Types Packs/Day Years [...] Visit [facility] [address] [place] [phone] Corine Gold MD [address] [place], [place] [phone] 12/17/2024 9:30 AM EDT Office Visit [facility] Pulmonary/Sleep Medicine [address] [phone] Mariah Peña DO [address] [phone] documented as of this encounter Visit Diagnoses Not on filedocumented in this encounter Additional Health Concerns Infection Onset Date Last Indicated Resolved Time Enteric Rule-Out 02/10/2024 02/10/2024 02/10/2024 4:50 AM EST COVID-19 Rule-Out 02/10/2024 02/09/2024 02/10/2024 3:36 AM EST Assessment Noted Time PHQ-9 Depression Total Score: 14 021 1:59 PM EDT documented as of this encounter Care Teams Drilling Machine Runner Relationship Specialty Start Date End Date Corine Gold MD [address] [place], [place] [phone] PCP - General Internal Medicine 03/25/24 documented as of this encounter
--- OUTSIDE RECORDS SUMMARY | 2024-12-01 03:46 | XMS_ITS | Encounter Summary ---
Author Organization [facility] Sys [facility] Address [id number] [address] [place] [address] Care Team Providers Care Opener Tender Name Role Phone Corine Gold MD Primary Care Provider [phone] Reason for Visit * Reason Comments Med Refill Encounter Details Date Type Department Care Team (Late st Contact Info) Description 01/24/2022 Refill [facility] Internal Medicine - Family Medicine [address] [place] [phone] Darien Caicedo, DO [address] [facility] [place] [address] Moderate persistent asthma, unspecified whether complicated (Primary [...] Visit [facility] [address] [place] [phone] Corine Gold MD [address] [place], [place] [phone] 12/17/2024 9:30 AM EDT Office Visit [facility]Sleep Medicine [address] [phone] Mariah Peña DO [address] [address] documented as of this encounter [...] documented as of this encounter Care Teams Opener Tender Relationship Specialty Start Date End Date Corine Gold MD [address] [place] [address] PCP - General Internal Medicine 03/25/24 documented as of this encounter
--- OUTSIDE RECORDS SUMMARY | 2024-12-01 03:46 | XMS_ITS | Encounter Summary ---
Author Organization [facility] Address [address] [place] [address] Care Team Providers Care Fur Storage Clerk Name Role Phone Lamont Blair MD Primary Care Provider [phone] Unallocated, [facility] Provider Primary Care Provi mahsa Lamont Blair MD Unavailable Encounter Details Date Type Department Care Team (Late st Contact Info) Description 12/11/2023 Orders Only [facility] [address] [place] [address] Kings Wallace MD [address] [place] [address] Social History Tobacco Use Types Packs/Day Years [...] on filedocumented in this encounter Care Teams Fur Storage Clerk Relationship Specialty Start Date End Date Lamont Blair MD PCP - General Family Medicine 03/14/23 04/21/24 Unallocated, [facility] Provider, [address] [place] [address] PCP - General [facility] Medicine 04/22/24 07/31/24 Lamont Blair MD [address] [place] [address] PCP - [facility] 05/21/2401/19 documented as of this encounter
--- OUTSIDE RECORDS SUMMARY | 2024-12-01 03:46 | XMS_ITS | Encounter Summary ---
Author Organization [facility] Sys tem Address [id number] [address] [place] [address] Care Team Providers Care Industrial Eng Name Role Phone Corine Gold MD Primary Care Provider [phone] Encounter Details Date Type Department Care Team (Late st Contact Info) Description 12/22/2020 Telephone [facility] Neu[facility] [address] [place] [address] Aide Smalls RN Social History [...] be great. My pharmacy is [facility] [place] Please reply to this message by electronic [...] Nicholson Sent:11/11/2020 7:23 PM EDT To:Ivy Zafar, CERTIFIED FIRST ASSISTANT-AURICULAR ACUPUNCTURIST Subject:Visit Follow-Up Question Good afternoon Anyway you [...] Office Visit [facility] [address] [place] [phone] Corine Gold MD [address] [place] [address] 12/17/2024 9:30 AM EDT Office Visit [facility]Sleep [facility] [address] [address] Mariah Peña DO [address] [address] documented as of this encounter Visit Diagnoses Not on filedocumented in this encounter Additional Health Concerns Infection Onset Date Last Indicated Resolved Time Enteric Rule-Out 02/10/2024 02/10/2024 02/10/2024 4:50 AM EST COVID-19 Rule-Out 02/10/2024 02/09/2024 02/10/2024 3:36 AM EST Assessment Noted Time PHQ-9 Depression Total Score: 14 021 1:59 PM EDT documented as of this encounter Care Teams Industrial Eng Relationship Specialty Start Date End Date Corine Gold MD [address] [facility] [place] [address] PCP - General Internal Medicine 03/25/24 documented as of this encounter
--- OUTSIDE RECORDS SUMMARY | 2024-12-01 03:46 | XMS_ITS | Encounter Summary ---
Author Organization [facility] Address [address] [place] [address] Care Team Providers Care Student Financial Services Counselor Name Role Phone Unallocated, [facility] Provider Primary Care Provi mahsa Lamont Blair MD Unavailable Encounter Details Date Type Department Care Team (Late st Contact Info) Description 07/04/2024 Abstract [facility] [address] [facility] [address] [address] Leonor Reeder MA Social History Tobacco [...] week 01/23/2024 How often do you attend [facility] or alevism services? More than 4 times per year 01/23/2024 Do you belong to any clubs o r organizations such as restorationism groups, unions, fraternal or athletic groups, or [...] Recorded Patient Health Questionnaire-2 Score 2 03/21/2023 [facility] - Occupational Stress Questionnaire Answer Date [...] were you homeless or living in a half-way (including now)? No 01/23/2024 Comments No Sex and Gender Information Value Date Recorded Sex Assigned at Not on file Legal Sex Female 7:02 PM EDT Gender Identity Not on file Sexual Orientation Not on file documented as of this encounter Plan of Treatment Not on file documented as of this encounter Visit Diagnoses Not on filedocumented in this encounter Care Teams Student Financial Services Counselor Relationship Specialty Start Date End Date Unallocated, [facility], [address] [place] [address] PCP - General Family Medicine 04/22/24 07/31/24 Lamont Blair MD [address] [place] [address] PCP - [facility] 05/21/2401/19 documented as of this encounter
--- OUTSIDE RECORDS SUMMARY | 2024-12-01 03:46 | XMS_ITS | Encounter Summary ---
Author Organization [facility] tem Address [facility]-[id number] [address] [place] [address] Care Team Providers Care Monomer Recovery Operator Name Role Phone Corine Gold MD Primary Care Provider [phone] Encounter Details Date Type Department Care Team (Latest Contact Info) Description 11/24/2024 Travel Social History Tobacco Use Types Packs/Day Years Used Date Smoking Tobacco: Never Smokeless Tobacco: Never Alcohol Use Standard Drinks/Week Comments Not Currently 0 (1 standard drink = 0.6 oz pur e alcohol) social [facility] Utilities Answer Date Recorded In the past 12 months has th [employer] electric, gas, oil, or water company threatened to [...] Office Visit [facility] [address] [place] [phone] Corine Gold MD [address] [place] [address] 12/17/2024 9:30 AM EDT Office Visit [facility]Sleep [facility] [address] [phone] Mariah Peña DO [address] [address] documented as of this encounter Goals Goal Patient Goal Type Associated Problems Recent Progress Patient-Stated? Author home General Yes Tamiko Buchanan RN Note: Evaluation of progress towards goal: Patient stated goal is to return home with [facility] for assistance with wound care documented as of this encounter Visit Diagnoses Not on filedocumented in this encounter Additional Health Concerns Assessment Noted Time PHQ-9 Depression Total Score: 0 07/25/19 3:07 PM EDT documented as of this encounter Care Teams Monomer Recovery Operator Relationship Specialty Start Date End Date Corine Gold MD [address], [place] [address] PCP - General Internal Medicine 03/25/24 documented as of this encounter
--- OUTSIDE RECORDS SUMMARY | 2024-12-01 03:46 | XMS_ITS | Encounter Summary ---
Author Organization [facility] Address [facility]-[id number] [address] [place] [address] Care Team Providers Care Marketing Support Specialist Name Role Phone Corine Gold MD Primary Care Provider [phone] Reason for Visit * Reason Comments Med Refill Encounter Details Date Type Department Care Team (Late st Contact Info) Description 05/08/2022 Refill [facility] Internal [facility] - Family Medicine [address] [place] [phone] Angélica Weber, CYLINDER VALVE REPAIRER-HEAVY EQUIPMENT RENTAL MANAGER [address] [place] [address] Social History Tobacco Use Types Packs/Day Years [...] Visit [facility] [address] [place] [address] Corine Gold MD [address] [place], [place] [phone] 12/17/2024 9:30 AM EDT Office Visit [facility]Sleep [facility] [address] [phone] Mariah Peña DO [address] [address] documented as of this encounter Visit Diagnoses Not on filedocumented in this encounter Additional Health Concerns Infection Onset Date Last Indicated Resolved Time Enteric Rule-Out 02/10/2024 02/10/2024 02/10/2024 4:50 AM EST COVID-19 Rule-Out 02/10/2024 02/09/2024 02/10/2024 3:36 AM EST Assessment Noted Time PHQ-9 Depression Total Score: 0 03/03/19 23 1:33 PM EST documented as of this encounter Care Teams Marketing Support Specialist Relationship Specialty Start Date End Date Corine Gold MD [address] [place], [place] [address] PCP - General Internal Medicine 03/25/24 documented as of this encounter
--- OUTSIDE RECORDS SUMMARY | 2024-12-01 03:46 | XMS_ITS | Encounter Summary ---
Author Organization [facility] Address [address] [place] [address] Care Team Providers Care Ncr Operator Name Role Phone Lamont Blair MD Primary Care Provider [phone] Lamont Blair MD Primary Care Provider [phone] Unallocated, Noms Provider Primary Care Provi mahsa Lamont Blair MD Unavailable Encounter Details Date Type Department Care Team (Late st Contact Info) Description 03/03/2023 Orders Only [facility] [address] [place] [address] Jesse Estrada MD [address] [place] [address] Social History Tobacco Use Types Packs/Day [...] on filedocumented in this encounter Care Teams Ncr Operator Relationship Specialty Start Date End Date Lamont Blair MD PCP - General Cardiology 08/01/22 03/13/23 Lamont Blair MD PCP - General Family Medicine 03/14/23 04/21/24 Unallocated, Noms Provider, [address] [place] [address] PCP - General Family Medicine 04/22/24 07/31/24 Lamont Blair MD [address] [place] [address] PCP - [facility] 05/21/2401/19 documented as of this encounter
--- OUTSIDE RECORDS SUMMARY | 2024-12-01 03:46 | XMS_ITS | Encounter Summary ---
Author Organization [facility] Address [address] [place] [address] Care Team Providers Care Neurology Technician Name Role Phone Lamont Blair MD Primary Care Provider [phone] Unallocated, Noms Provider Primary Care Provi mahsa Lamont Blair MD Unavailable Encounter Details Date Type Department Care Team (Late st Contact Info) Description 03/05/2024 Abstract [facility] [address] [facility] [place] [address] Zay Blas DO [address] [facility] [address] [place], [place] [id number] Social History Tobacco Use Types Packs/Day Years [...] often do you attend chur ch or episcopalian services? More than 4 times per year 01/23/2024 Do you belong to any clubs o r organizations such as sabianism groups, unions, fraternal or athletic groups, or [...] Recorded Patient Health Questionnaire-2 Score 2 03/21/2023 [facility] [...] any time in the past 12 m [facility], were you homeless or living [...] on filedocumented in this encounter Care Teams Neurology Technician Relationship Specialty Start Date End Date Lamont Blair MD PCP - General Family Medicine 03/14/23 04/21/24 Unallocated, Noms Provider, [address] [facility] [place] [address] PCP - General Family Medicine 04/22/24 07/31/24 Lamont Blair MD [address] [place] [address] PCP - [facility] 05/21/2401/19 documented as of this encounter
--- OUTSIDE RECORDS SUMMARY | 2024-12-01 03:47 | XMS_ITS | Encounter Summary ---
Author Organization [facility] Address [address] [place] [address] Care Team Providers Care Oil Field Tester Name Role Phone Abdifatah Brady (Historical) Primary Care Provide r Unavailable Source Comments In the event this information is protected by the Federal Confidentiality of Alcohol and Drug AbusePatient Records regulations: The Federal rules restrict any use of the information to criminally investigate or prosecute any alcohol or drug abuse patient.[facility] Encounter Details Date Type Department Care Team (Late st Contact Info) Description 04/29/2024 Get Medical Advice Neurology [address] [place] [place], [place] [phone] Griffin Lepe PA-C [address] [place] [address] Infusions Social History Tobacco Use Types Packs/Day Years Used Date Smoking Tobacco: Never Smokeless Tobacco: Never PHQ-2 Answer Date Recorded PHQ-2 score 2 05/03/2024 Area Deprivation Index Answer Date Zi rded National Score (1-100), lower number is lower ri sk 94 06/23/2022 State Score (1-10), lower number is lower risk 9 06/23/2022 Data from: https://www.neighborhoodatlas.medicine.[facility]/. Last address used for [...] of Assessment Author No 04/01/2022 6:20 PM Pameal Florez RN * Because of a physical, [...] Contact Info) Description 12/04/2024 11:00 AM EDT [facility] Neurology [address] [phone] Tyrone Dolan MD, PhD [address] [facility] [address] [place] [address] Vaughn Wilson 12/11/2024 9:30 AM EDT Infusion Center Neurology [address] [phone] [facility] Infusion 02/25/2025 10:00 AM EST Office Visit Neurology [address] [facility] [address] [place] [address] Basil Cornelius DO [address] [phone] New patient reestablish care documented as of this encounter Visit Diagnoses Not on filedocumented in this encounter Care Teams Oil Field Tester Relationship Specialty Start Date End Date Abdifatah Brady (Historical) PCP - General 05/21/13 documented as of this encounter
--- OUTSIDE RECORDS SUMMARY | 2024-12-01 03:47 | XMS_ITS | Encounter Summary ---
Author Organization [facility] Address [address] [place] [address] Care Team Providers Care Ship Purser Name Role Phone Abdifatah Brady (Historical) Primary Care Provide r Unavailable Source Comments In the event this information is protected by the Federal Confidentiality of Alcohol and Drug AbusePatient Records regulations: The Federal rules restrict any use of the information to criminally investigate or prosecute any alcohol or drug abuse patient.[facility] Reason for Visit * Reason Onset Date Comments Refill Request 01/26/2024 Encounter Details Date Type Department Care Team (Late st Contact Info) Description 01/26/2024 Refill Neurology [address] [place] [address] Sagar Barth APRN.STAGE BUILDER [address] [place] [address] Refill Request Social History Tobacco Use Types Packs/Day Years Used Date Smoking Tobacco: Never Smokeless Tobacco: Never PHQ-2 Answer Date Recorded PHQ-2 score 3 01/17/2024 Area Deprivation Index Answer Date Zi rded National Score (1-100), lower number is lower ri sk 94 06/23/2022 State Score (1-10), lower number is lower risk 9 06/23/2022 Data from: https://www.neighborhoodatlas.medicine.[facility]/. Last address used for calculation [...] Contact Info) Description 12/04/2024 11:00 AM EDT [facility] Neurology [address] [phone] Tyrone Dolan MD, PhD [address] [facility] [address] [place] [address] [place] Cunsult 12/11/2024 9:30 AM EDT Infusion Center Neurology [address] [phone] [facility] Infusion 02/25/2025 10:00 AM EST Office Visit Neurology [address] [facility] [address] [place] [address] Basil Cornelius DO [address] [place] [address] New patient reestablish care documented as of this encounter Visit Diagnoses Diagnosis Intractable chronic migraine without aura and without status migrainosus Chronic migraine without aura, with intractable migraine, so stated, without mention of status migrainosus documented in this encounter Care Teams Ship Purser Relationship Specialty Start Date End Date Abdifatah Brady (Historical) PCP - General 05/21/13 documented as of this encounter
--- OUTSIDE RECORDS SUMMARY | 2024-12-01 03:47 | XMS_ITS | Encounter Summary ---
Author Organization [employer] [facility] [employer] Address [facility]-[id number] [address] [place] [address] Care Team Providers Care Geospatial Developer Name Role Phone Corine Gold MD Primary Care Provider [phone] Reason for Visit * Reason Onset Date Comments Med Refill 04/29/2024 Encounter Details Date Type Department Care Team (Late st Contact Info) Description 04/29/2024 Refill [facility] [address] [place] [address] Corine Gold MD [address] [place] [address] Social History Tobacco Use Types Packs/Day Years Used Date Smoking Tobacco: Never Smokeless Tobacco: Never Alcohol Use Standard Drinks/Week Comments Not Currently 0 (1 standard drink = 0.6 oz pur e alcohol) social [facility] Utilities Answer Date Recorded In the past 12 months has [employer] oil, or water [employer] threatened to shut off services in your [...] Office Visit [facility] [address] [place] [address] [place] [address] Corine Gold MD [address] [place], [place] [phone] 12/17/2024 9:30 AM EDT Office Visit [facility] Pulmonary/Sleep Medicine [address] [address] Mariah Peña DO [address] [address] documented as of this encounter [...] documented as of this encounter Care Teams Geospatial Developer Relationship Specialty Start Date End Date Corine Gold MD [address] [place] [address] PCP - General Internal Medicine 03/25/24 documented as of this encounter
--- OUTSIDE RECORDS SUMMARY | 2024-12-01 03:47 | XMS_ITS | Encounter Summary ---
Author Organization [facility] Address [address] [place] [address] Care Team Providers Care Doll Wig Maker Rooted Hair Name Role Phone Abdifatah Brady (Historical) Primary Care Provide r Unavailable Source Comments In the event this information is protected by the Federal Confidentiality of Alcohol and Drug AbusePatient Records regulations: The Federal rules restrict any use of the information to criminally investigate or prosecute any alcohol or drug abuse patient.[facility] Encounter Details Date Type Department Care Team (Late st Contact Info) Description 12/07/2022 Get Medical Advice Neurology [address] [place] [address] Sagar Barth APRN.PRODUCT DEVELOPMENT SPECIALIST [address] [place] [address] Medication Social History Tobacco Use Types Packs/Day Years Used Date Smoking Tobacco: Never Smokeless Tobacco: Never PHQ-2 Answer Date Recorded PHQ-2 score 4 11/10/2022 Area Deprivation Index Answer Date Zi rded National Score (1-100), lower number is lower ri sk 94 06/23/2022 State Score (1-10), lower number is lower risk 9 06/23/2022 Data from: https://www.neighborhoodatlas.medicine.[facility].edu/. Last address used for calculation [address] [...] Contact Info) Description 12/04/2024 11:00 AM EDT [facility] Neurology [address] [place] [address] Tyrone Dolan MD, PhD [address] [facility] [address] [place] [address] Vaughn Steve 12/11/2024 9:30 AM EDT Infusion Center Neurology [address] [place] [address] [facility] Infusion 02/25/2025 10:00 AM EST Office Visit Neurology [address] [facility] [address] [place] [address] Basil Cornelius, [address] [phone] New patient reestablish care documented as of this encounter Visit Diagnoses Not on filedocumented in this encounter Care Teams Doll Wig Maker Rooted Hair Relationship Specialty Start Date End Date Abdifatah Brady (Historical) PCP - General 05/21/13 documented as of this encounter
--- OUTSIDE RECORDS SUMMARY | 2024-12-01 03:47 | XMS_ITS | Encounter Summary ---
Author Organization [facility] Address [address] [place] [address] Care Team Providers Care Refined Syrup Operator Name Role Phone Abdifatah Brady (Historical) Primary Care Provide r Unavailable Source Comments In the event this information is protected by the Federal Confidentiality of Alcohol and Drug AbusePatient Records regulations: The Federal rules restrict any use of the information to criminally investigate or prosecute any alcohol or drug abuse patient.[facility] Encounter Details Date Type Department Care Team (Late st Contact Info) Description 01/16/2024 Patient Msg Neurology [address] [phone] Provider, [facility] Infusions Social History Tobacco Use Types Packs/Day Years Used Date Smoking Tobacco: Never Smokeless Tobacco: Never PHQ-2 Answer Date Recorded PHQ-2 score 3 01/17/2024 Area Deprivation Index Answer Date Zi rded National Score (1-100), lower number is lower ri sk 94 06/23/2022 State Score (1-10), lower number is lower risk 9 06/23/2022 Data from: https://www.neighborhoodatlas.[facility]/. Last address used for calculation [address] [...] EDT [facility] Neurology [address] [place] [address] Tyrone Dolan MD, PhD [address] [facility] [address] [place] [phone] Vaughn Wilson 12/11/2024 9:30 AM EDT Infusion Center Neurology [address] [phone] [facility] Infusion 02/25/2025 10:00 AM EST Office Visit Neurology [address] [facility] [address] [place] [address] Basil Cornelius, [facility] [place] [phone] New patient reestablish care documented as of this encounter Visit Diagnoses Not on filedocumented in this encounter Care Teams Refined Syrup Operator Relationship Specialty Start Date End Date Abdifatah Brady (Historical) PCP - General 05/21/13 documented as of this encounter
--- OUTSIDE RECORDS SUMMARY | 2024-12-01 03:47 | XMS_ITS | Encounter Summary ---
Author Organization [facility] Address [address] [place] [address] Care Team Providers Care Healthcare Administrative Assistant Name Role Phone Abdifatah Brady (Historical) Primary [...] Info) Description 03/29/2024 Patient Msg Neurology [address] [phone] Provider, Ccporsche [facility] Social History Tobacco Use Types Packs/Day Years Used Date Smoking Tobacco: Never Smokeless Tobacco: Never PHQ-2 Answer Date Recorded PHQ-2 score 3 03/20/2024 Area Deprivation Index Answer Date Zi rded National Score (1-100), lower number is lower ri sk 94 06/23/2022 State Score (1-10), lower number is lower risk 9 06/23/2022 Data from: https://www.neighborhoodatlas.[facility]/. Last address used for calculation [...] Contact Info) Description 12/04/2024 11:00 AM EDT [facility] Neurology [address] [place] [address] Tyrone Dolan MD, PhD [address] [facility] [address] [place], [place] [phone] Vaughn [facility] 12/11/2024 9:30 AM EDT Infusion Center Neurology [address] [phone] V[facility]pti Infusion 02/25/2025 10:00 AM EST Office Visit Neurology [address] [facility] [address] [place] [address] Basil Cornelius DO [address] [place], [place] [phone] New patient reestablish care documented as of this encounter Visit Diagnoses Not on filedocumented in this encounter Care Teams Healthcare Administrative Assistant Relationship Specialty Start Date End Date Abdifatah Brady (Historical) PCP - General 05/21/13 documented as of this encounter
--- OUTSIDE RECORDS SUMMARY | 2024-12-01 03:47 | XMS_ITS | Clinical Summary ---
Author Organization [facility] Address [address] [place] [address], [address] [place] [address] Care Team Providers Care Entry Level Manufacturing Engineer Name Role Phone Angélica Weber Pamela HECK - HEALTH EDUCATION COORDINATOR Primary Care Provider [phone] Allergies Active Allergy Reactions Criticality Noted Date [...] Mass Index - - Plan of Treatment Not on file Insurance [facility] Advance Directives * Full Code (Latest Code Status on File) Date Activated Date Inactivated Comments 10/19/2021 12:27 PM 10/20/2021 4:12 PM * Full Code Date Activated Date Inactivated Comments 10/19/2021 12:23 PM 10/19/2021 12:27 PM Care Teams Entry Level Manufacturing Engineer Relationship Specialty Start Date End Date Angélica Weber, UMANG - HEALTH EDUCATION COORDINATOR [address] [place] [address] PCP - General Nurse Practitioner 12/24/20
--- OUTSIDE RECORDS SUMMARY | 2024-12-01 03:47 | XMS_ITS | Encounter Summary ---
Author Organization [facility] Address [address] [place] [address] Care Team Providers Care Roll Panner Name Role Phone Abdifatah Brady (Historical) Primary Care Provide r Unavailable Source Comments In the event this information is protected by the Federal Confidentiality of Alcohol and Drug AbusePatient Records regulations: The Federal rules restrict any use of the information to criminally investigate or prosecute any alcohol or drug abuse patient.[facility] Encounter Details Date Type Department Care Team (Late st Contact Info) Description 06/27/2022 Patient Msg Neurology [address] [place], [place] [phone] Provider, [facility] Headache infusion Social History Tobacco Use Types Packs/Day Years Used Date Smoking Tobacco: Never Assessed PHQ-2 Answer Date Recorded PHQ-2 score 2 06/24/2022 Area Deprivation Index Answer Date Zi rded National Score (1-100), lower number is lower ri sk 94 06/23/2022 State Score (1-10), lower number is lower risk 9 06/23/2022 Data from: https://www.neighborhoodatlas.[facility]/. Last address used for calculation [...] Contact Info) Description 12/04/2024 11:00 AM EDT [facility] Neurology [address] [place] [address] Tyrone Dolan MD, PhD [address] [facility] [address] [place] [address] Vaughn Chinchilla 12/11/2024 9:30 AM EDT Infusion Center Neurology [address] [place] [address] Vyepti Infusion 02/25/2025 10:00 AM EST Office Visit Neurology [address] [facility] [address] [place] [address] Basil Cornelius, [facility] [place] [phone] New patient reestablish care documented as of this encounter Visit Diagnoses Not on filedocumented in this encounter Care Teams Roll Panner Relationship Specialty Start Date End Date Abdifatah Brady (Historical) PCP - General 05/21/13 documented as of this encounter
--- OUTSIDE RECORDS SUMMARY | 2024-12-01 03:47 | XMS_ITS | Encounter Summary ---
Author Organization [facility] Address [facility] [place] [address] Care Team Providers Care Software Packaging Engineer Name Role Phone Abdifatah Brady (Historical) Primary Care Provide r Unavailable Source Comments In the event this information is protected by the Federal Confidentiality of Alcohol and Drug AbusePatient Records regulations: The Federal rules restrict any use of the information to criminally investigate or prosecute any alcohol or drug abuse patient.[facility] Encounter Details Date Type Department Care Team (Late st Contact Info) Description 06/08/2022 Get Medical Advice Neurology [address] [place] [address] Jesse Borrego MD [address] [place] [address] Migraines Social History Tobacco Use Types Packs/Day Years Used Date Smoking Tobacco: Never Assessed PHQ-2 Answer Date Recorded PHQ-2 score 4 10/29/2021 Area Deprivation Index Answer Date Zi rded National Score (1-100), lower number is lower ri sk 88 03/08/2022 State Score (1-10), lower number is lower risk N ot on file 03/08/2022 Data from: https://www.neighborhoodatlas.medicine.[facility]/. Last address used for calculation [address] 03/08/2022 Comments Unknown Sex and Gender [...] Contact Info) Description 12/04/2024 11:00 AM EDT [facility] Neurology [address] [place] [address] Tyrone Dolan MD, PhD [address] [facility] [address] [place] [address] Vaughn [facility] 12/11/2024 9:30 AM EDT Infusion Center Neurology [address] [phone] V[facility]pti Infusion 02/25/2025 10:00 AM EST Office Visit Neurology [address] [facility] [address] [place] [address] Basil Cornelius DO [facility] [place] [phone] New patient reestablish care documented as of this encounter Visit Diagnoses Not on filedocumented in this encounter Care Teams Software Packaging Engineer Relationship Specialty Start Date End Date Abdifatah Brady (Historical) PCP - General 05/21/13 documented as of this encounter
--- OUTSIDE RECORDS SUMMARY | 2024-12-01 03:47 | XMS_ITS | Encounter Summary ---
Author [facility] [place] [facility] Address [id number] [address] [place] [address] Care Team Providers Care Production Grader Name Role Phone Corine Gold MD Primary Care Provider [phone] Encounter Details Date Type Department Care Team (Late st Contact Info) Description 05/23/2022 Refill [facility] - Family Medicine [address] [place] [address] Irlanda Graham CMA Moderate persistent [...] Visit [facility] [address] [place] [phone] Corine Gold MD [address] [place], [place] [phone] 12/17/2024 9:30 AM EDT Office Visit [facility] Pulmonary/Sleep Medicine [address] [address] Mariah Peña DO [address] [address] documented as of this encounter Visit Diagnoses Diagnosis Moderate persistent asthma, unspecified whether complicated documented in this encounter Additional Health Concerns Infection Onset Date Last Indicated Resolved Time Enteric Rule-Out 02/10/2024 02/10/2024 02/10/2024 4:50 AM EST COVID-19 Rule-Out 02/10/2024 02/09/2024 02/10/2024 3:36 AM EST Assessment Noted Time PHQ-9 Depression Total Score: 0 03/03/19 1:33 PM EST documented as of this encounter Care Teams Production Grader Relationship Specialty Start Date End Date Corine Gold MD [address] [place], [place] [phone] PCP - General Internal Medicine 03/25/24 documented as of this encounter
--- OUTSIDE RECORDS SUMMARY | 2024-12-01 03:47 | XMS_ITS | Encounter Summary ---
Author Organization [facility] Address [address] [place] [address] Care Team Providers Care B2B Sales Executive Name Role Phone Abdifatah Brady (Historical) Primary Care Provide r Unavailable Source Comments In the event this information is protected by the Federal Confidentiality of Alcohol and Drug AbusePatient Records regulations: The Federal rules restrict any use of the information to criminally investigate or prosecute any alcohol or drug abuse patient.[facility] Encounter Details Date Type Department Care Team (Late st Contact Info) Description 05/10/2024 Patient Msg Neurology [address] [place], [place] [phone] Griffin Lepe PA-C [address] [place] [address] Appointment follow-up Social History Tobacco Use Types Packs/Day Years Used Date Smoking Tobacco: Never Smokeless Tobacco: Never PHQ-2 Answer Date Recorded PHQ-2 score 2 05/03/2024 Area Deprivation Index Answer Date Zi rded National Score (1-100), lower number is lower ri sk 94 06/23/2022 State Score (1-10), lower number is lower risk 9 06/23/2022 Data from: https://www.neighborhoodatlas.medicine.[facility]/. Last address used for calculation [address] [...] Description 12/04/2024 11:00 AM EDT [facility] Neurology [address] [place] [phone] Tyrone Dolan MD, PhD [address] [facility] [address] [place] [address] Vaughn Wilson 12/11/2024 9:30 AM EDT Infusion Center Neurology [address] [place] [phone] Vyepti Infusion 02/25/2025 10:00 AM EST Office Visit Neurology [address] [facility] [address] [place] [phone] Basil Cornelius DO [address] [phone] New patient reestablish care documented as of this encounter Visit Diagnoses Not on filedocumented in this encounter Care Teams B2B Sales Executive Relationship Specialty Start Date End Date Abdifatah Brady (Historical) PCP - General 05/21/13 documented as of this encounter
--- OUTSIDE RECORDS SUMMARY | 2024-12-01 03:47 | XMS_ITS | Encounter Summary ---
Author Organization [facility] Address [address] [place] [address], [address] [place] [address] Care Team Providers Care Police Communications Operator Name Role Phone RandellAngélica rick Pamela Tang CNP Primary Care Provider [phone] Reason for Referral * Other (Routine) - Closed Specialty Diagnoses / Procedures Referred By Contselena t Referred To Contact Diagnoses Moderate persistent asthma with exacerbation Procedures Full PFT Study With Bronchodilator Alba Guadalupe APRN - CNP [address] [place] [address] Phone: tel: fax: Referral ID Status Reason Start Date Expiration Date Visits Re quested Visits Authorized [id number] Closed 03/08/2022 03/08/2023 1 1 Encounter Details Date Type Department Care Team (Late st Contact Info) Description 03/08/2022 Transcribe Orders Leon Pre Access [address] [place] [id number] Alba Guadalupe APRN - CNP [address] [place] [address] Moderate persistent asthma with exacerbation [...] exacerbation documented in this encounter Care Teams Police Communications Operator Relationship Specialty Start Date End Date Angélica Weber, AUTO BODY SHOP MANAGER - BIOMASS FACILITATOR [address] [place] [address] PCP - General Nurse Practitioner 12/24/20 documented as of this encounter
--- OUTSIDE RECORDS SUMMARY | 2024-12-01 03:47 | XMS_ITS | Encounter Summary ---
Author Organization [facility] Address [address] [place] [address] Care Team Providers Care Wood Handler Name Role Phone Abdifatah Brady (Historical) Primary Care Provide r Unavailable Source Comments In the event this information is protected by the Federal Confidentiality of Alcohol and Drug AbusePatient Records regulations: The Federal rules restrict any use of the information to criminally investigate or prosecute any alcohol or drug abuse patient.[facility] Encounter Details Date Type Department Care Team (Late st Contact Info) Description 01/16/2024 Telephone Neurology Headache [facility] [address] [place] [address] Sagar Barth APRN.BATH HOUSE ATTENDANT [address] [place], [place] [phone] Social History Tobacco Use Types Packs/Day Years Used Date Smoking Tobacco: Never Smokeless Tobacco: Never PHQ-2 Answer Date Recorded PHQ-2 score 3 01/17/2024 Area Deprivation Index Answer Date Zi rded National Score (1-100), lower number is lower ri sk 94 06/23/2022 State Score (1-10), lower number is lower risk 9 06/23/2022 Data from: https://www.neighborhoodatlas.medicine.[facility].edu/. Last address used for calculation [address] [...] Givens RN - 01/16/2024 12:03 PM EST [employer] message sent to provider who saw patient last (Ольга Shabazz APRN.CNP). Providers message pool is handing message. * Telephone Encounter - Bonnie Rodriguez - 01/16/2024 11:50 AM EST Name of Caller: Coni Relationship to patient: patient Last visit in this department: 09/19/2023 Reason for Call: Other : Pt asking if you would read the [employer] message and respond back to her tanner. Thanks Callback number: [phone] documented in this encounter Plan of Treatment Upcoming Encounters Date Type Department Care Team (Latest Contact Info) Description 12/04/2024 11:00 AM EDT [facility] Neurology [address] [place], [place] [phone] Tyrone Dolan MD, PhD [address] [facility] [address] [place], [place] [phone] [place] [facility] 12/11/2024 9:30 AM EDT [facility]fusion [facility] Neurology [address] [place] [address] [facility] 02/25/2025 10:00 AM EST Office Visit Neurology [address] [facility] [address] [place] [address] Basil Cornelius, [address] [place] [address] New patient reestablish care documented as of this encounter Visit Diagnoses Not on filedocumented in this encounter Care Teams Wood Handler Relationship Specialty Start Date End Date Abdifatah Brady (Historical) PCP - General 05/21/13 documented as of this encounter
--- OUTSIDE RECORDS SUMMARY | 2024-12-01 03:47 | XMS_ITS | Encounter Summary ---
Author Organization [facility] Address [address] [place] [address] Care Team Providers Care Sales Service Manager Name Role Phone Abdifatah Brady (Historical) [...] Info) Description 02/07/2024 Patient Msg Neurology [address] [place], [place] [phone] Provider, Rosa Betancourt for 2024 Social History Tobacco Use Types Packs/Day Years Used Date Smoking Tobacco: Never Smokeless Tobacco: Never PHQ-2 Answer Date Recorded PHQ-2 score 3 01/17/2024 Area Deprivation Index Answer Date Zi rded National Score (1-100), lower number is lower ri sk 94 06/23/2022 State Score (1-10), lower number is lower risk 9 06/23/2022 Data from: https://www.neighborhoodatlas.[facility]/. Last address used for calculation [...] Contact Info) Description 12/04/2024 11:00 AM EDT [facility] Neurology [address] [place] [address] Tyrone Dolan MD, PhD [address] [facility] [address] [place], [place] [phone] Vaughn [facility] 12/11/2024 9:30 AM EDT Infusion Center Neurology [address] [place] [phone] [facility] 02/25/2025 10:00 AM EST Office Visit Neurology [address] [facility] [address] [place] [address] Basil Cornelius DO [address] [place], [place] [phone] New patient reestablish care documented as of this encounter Visit Diagnoses Not on filedocumented in this encounter Care Teams Sales Service Manager Relationship Specialty Start Date End Date Abdifatah Brady (Historical) PCP - General 05/21/13 documented as of this encounter
--- OUTSIDE RECORDS SUMMARY | 2024-12-01 03:47 | XMS_ITS | Encounter Summary ---
Author Organization Address [address] [place] [address] Care Team Providers Care Dipper Clock And Watch Hands Name Role Phone Abdifatah Brady (Historical) Primary [...] Description 01/16/2024 Get Medical Advice Neurology [address] [place], [place] [phone] Griffin Lepe PA-C [address] [place] [address] Uodate Social History Tobacco Use Types Packs/Day Years Used Date Smoking Tobacco: Never Smokeless Tobacco: Never PHQ-2 Answer Date Recorded PHQ-2 score 3 01/17/2024 Area Deprivation Index Answer Date Zi rded National Score (1-100), lower number is lower ri sk 94 06/23/2022 State Score (1-10), lower number is lower risk 9 06/23/2022 Data from: https://www.neighborhoodatlas.medicine.[facility]/. Last address used for calculation [address] [...] Contact Info) Description 12/04/2024 11:00 AM EDT [facility] Neurology [address] [place] [address] Tyrone Dolan MD, PhD [address] [facility] [address] [place] [address] Vaughn Steve 12/11/2024 9:30 AM EDT Infusion Center Neurology [address] [place] [address] [facility] 02/25/2025 10:00 AM EST Office Visit Neurology [address] [facility] [address] [place] [address] Basil Cornelius, [address] [place] [phone] New patient reestablish care documented as of this encounter Visit Diagnoses Not on filedocumented in this encounter Care Teams Dipper Clock And Watch Hands Relationship Specialty Start Date End Date Abdifatah Brady (Historical) PCP - General 05/21/13 documented as of this encounter
--- OUTSIDE RECORDS SUMMARY | 2024-12-01 03:47 | XMS_ITS | Encounter Summary ---
Author Organization [facility] Address [address] [place] [address] Care Team Providers Care Hand Picker Name Role Phone Abdifatah Brady (Historical) Primary Care Provide r Unavailable Source Comments In the event this information is protected by the Federal Confidentiality of Alcohol and Drug AbusePatient Records regulations: The Federal rules restrict any use of the information to criminally investigate or prosecute any alcohol or drug abuse patient.[facility] Encounter Details Date Type Department Care Team (Late st Contact Info) Description 06/12/2024 Patient Msg Neurology [address] [place] [phone] Provider, [facility] Know Your Triggers, Own Your [...] is lower risk 9 06/23/2022 Data from: https://www.neighborhoodatlas.[facility]/. Last address used for calculation Josr [...] Contact Info) Description 12/04/2024 11:00 AM EDT [facility] Neurology [address] [place] [address] Tyrone Dolan MD, PhD [address] [facility] [address] [place], [place] [phone] [facility] 12/11/2024 9:30 AM EDT Infusion Center Neurology [address] [place] [address] [facility] 02/25/2025 10:00 AM EST Office Visit Neurology [address] [facility] [address] [place] [address] Basil Cornelius DO [address] [place], [place] [phone] New patient reestablish care documented as of this encounter Visit Diagnoses Not on filedocumented in this encounter Care Teams Hand Picker Relationship Specialty Start Date End Date Abdifatah Brady (Historical) PCP - General 05/21/13 documented as of this encounter
--- OUTSIDE RECORDS SUMMARY | 2024-12-01 03:47 | XMS_ITS | Encounter Summary ---
Author Organization [facility] Address [address] [place] [address] Care Team Providers Care Insurance Professional Name Role Phone Abdifatah Brady (Historical) Primary Care Provide r Unavailable Source Comments In the event this information is protected by the Federal Confidentiality of Alcohol and Drug AbusePatient Records regulations: The Federal rules restrict any use of the information to criminally investigate or prosecute any alcohol or drug abuse patient.[facility] Encounter Details Date Type Department Care Team (Late st Contact Info) Description 11/26/2024 Patient Msg Neurology [address] [place], [place] [phone] Provider, [facility]cp[facility] Social History Tobacco Use Types Packs/Day Years Used Date Smoking Tobacco: Never Smokeless Tobacco: Never PHQ-2 Answer Date Recorded PHQ-2 score 2 11/26/2024 Area Deprivation Index Answer Date Zi rded National Score (1-100), lower number is lower ri sk 94 06/23/2022 State Score (1-10), lower number is lower risk 9 06/23/2022 Data from: https://www.neighborhoodatlas.[facility]/. Last address used for calculation [address] [...] of Assessment Author No 04/01/2022 6:20 PM Katie Florez RN documented as of this encounter Mental Status * Because of a physical, mental, or emotional condition, do you have serious difficulty concentrating, remembering, or making decisions? Answer Entry Date Author No 04/01/2022 6:20 PM Pamela Florez RN documented in this encounter Plan of Treatment Upcoming Encounters Date Type Department Care Team (Latest Contact Info) Description 12/04/2024 11:00 AM EDT [facility] Neurology [address] [place] [address] Tyrone Dolan MD, PhD [address] [facility] [address] [place], [place] [phone] Vaughn [place] 12/11/2024 9:30 AM EDT Infusion Center Neurology [address] [place] [phone] [facility] 02/25/2025 10:00 AM EST Office Visit Neurology [address] [facility] [address] [place] [address] Basil Cornelius, [place] [phone] New patient reestablish care documented as of this encounter Visit Diagnoses Not on filedocumented in this encounter Care Teams Insurance Professional Relationship Specialty Start Date End Date Abdifatah Brady (Historical) PCP - General 05/21/13 documented as of this encounter
--- OUTSIDE RECORDS SUMMARY | 2024-12-01 03:48 | XMS_ITS | CCD ---
Author Organization [facility] Care Team Providers Care Food Analyst Name Role Phone Abdifatah Brady (Historical) Primary Care Provide r Unavailable Tia PR INTERN - LIQUID CENTER ASSEMBLER, Derik Pamela Primary Care Provider TIA DERIK Santiago Primary Care Unavailable KEVEN CHING Attending Unavailable Tia PR INTERN - LIQUID CENTER ASSEMBLER, Derik Sanitago Primary Care Provider LUCILA MOTA Attending Unavailable KINGS STEWART Referring Unavailable RANDELLKrupa DERIK Pamela Primary Care Unavailable LUCILA MOTA Admitting [...] Attending Unavailable DIAB ., [facility] Consulting Unavailable ANASTASIA, DR GOMEZ Primary Care Unavailable DIAB ., [...] DOCKERY Attending Unavailable SUKHDEEP DOCKERY Admitting Unavailable KUNS, DR DERIK Santaigo Primary Care Unavailable GRECHNY ., MARY WHITNEY [...] MANJINDER Attending Unavailable SAY, MANJINDER Consulting Unavailable TIA, DR DERIK Santiago Primary Care Unavailable SAY, MANJINDER Attending Unavailable SAY, MANJINDER Consulting Unavailable REQUEST, DR NONE LISTED Primary Care Unavaila ble SAY, MANJINDER Admitting Unavailable PATRICIA WALSH Consulting Unavailable [facility] [place] DR GOMEZ Primary Care Unavailable HAY ., DR HARMAN Attending Unavailable HAY ., DR HARMAN Admitting Unavailable NEWATIA, NICHOLAS Consulting Unavailable UNLU, SINDY Consulting Unavailable ROOPA ., DR GUTIERREZ Admitting Unavailable ROOPA ., DR GUTIERREZ Consulting Unavailable [facility] Primary Care Unavailable ROOPA ., DR GUTIERREZ Attending Unavailable KUNS, DR DERIK Santiago Primary Care Unavailable ROOPA ., DR GUTIERREZ Admitting Unavailable ROOPA ., DR GUTIERREZ Attending Unavailable ROOPA ., DR GUTIERREZ Consulting Unavailable ROPOA ., DR GUTIERREZ Admitting Unavailable ROOPA ., DR GUTIERREZ Attending Unavailable NADERER, DR LAMONT Garcia Primary Care Unavailable [facility] Primary Care Unavailable HAY ., DR HARMAN Consulting Unavailable HAY ., DR HARMAN Admitting Unavailable HAY ., DR HARMAN Attending Unavailable KONNICOLE KING Consulting Unavailable KUNS, DR DERIK Santiago Primary Care Unavailable MARKER ., DR ONEAL Attending Unavailable MARKER ., DR ONEAL Consulting Unavailable MARKER ., DR ONEAL Admitting Unavailable ROBIN IRBY Consulting Unavailable SAY, MANJINDER Attending Unavailable SAY, MANJINDER Consulting Unavailable SAY, MANJINDER Admitting Unavailable KUNS, DR DERIK Santiago Primary Care Unavailable KUNS, DR DERIK Santiago Referring Unavailable ROOPA ., DR GUTIERREZ Admitting Unavailable ROOPA ., DR GUTIERREZ Attending Unavailable ROOPA ., DR GUTIERREZ Consulting Unavailable REQUEST, DR RM LISTED Primary Care Unavaila ble AGUBOSIM, BARON Consulting Unavailable ROOPA ., DR GUTIERREZ Procedure Practitioner Unavail able KRYSTIN HERNADEZ Consulting Unavailable LUCIE, KLEBER Consulting Unavailable DORKOSKIE, SHARDA Consulting Unavailable ALECIA ., DENNIS Admitting Unavailable ALECIA ., DENNIS Attending Unavailable MISC, DR GOMEZ Primary Care Unavailable HAY ., DR HARMAN Consulting Unavailable RIZZO, ANKUR Consulting Unavailable ALECIA ., DENNIS Consulting Unavailable TIA, DR DERIK Santiago Primary Care Unavailable ROOPA [...] Provider Lamont Shay MD Primary Care Provider [phone] Corine Gold MD Primary Care Provider [phone] Corine Gold MD Primary Care Provider [phone] Unavailable Primary Care Provider Unavailabl elvia Unallocatscott MORENO, Shannas Provider Primary Care [facility] Corine Gold MD Primary Care Provider Unavail able CORINE GOLD Primary Care Unavailable SHADIA GIFTY Elvia Referring Unavailable HICVIRGINIA GIFTY Elvia Attending Unavailable Unavailable Primary Care Provider Unavailabl e ROOPA, ZAY Attending Unavailable ROOPA, ZAY Attending Unavailable ROOPA, ZAY Attending Unavailable LAURITA, LAMONT Attending Unavailable ROOPA, ZAY Attending Unavailable ROOPA, ZAY Attending Unavailable LAURITA, LAMONT Attending Unavailable ROOPA, ZAY Attending Unavailable LAURITA, LAMONT Attending Unavailable LAURITA, LAMONT Attending Unavailable LAURITA, LAMONT Attending Unavailable ROOPA, ZAY Attending Unavailable ROOPA, ZAY Attending Unavailable Lamont Shay Primary Care Unavailable Dariusz Estrada Attending Unavailable Dariusz Estrada Admitting Unavailable Ramsey Maloney Attending Unavailab le Ramsey Maloney Admitting Unavailab le NON STAFF Primary Care Unavailable ОЛЬГА AGUILAR Attending Unavailable BIDDLECOM, SUZAN FRASER Referring Unava ilable BIDDLECOM, SUZAN FRASER Referring Unava ilable GREEN, SAGAR Attending Unavailable LEPECURTIS Attending Unavailable GREEN, SAGAR Referring Unavailable LEPE, CURTIS Attending Unavailable LEPE, CURTIS Attending Unavailable ОЛЬГА AGUILAR Attending Unavailable GREEN, SAGAR Referring Unavailable GREEN, SAGAR Referring Unavailable LEPE, CURTIS Referring Unavailable HAMDAN, RAIZA Attending Unavailable BIDDLECOM, SUZAN FRASER Referring Unava ilable BIDDLECOM, SUZAN FRASER Referring Unava ilable GREEN, SAGAR Referring Unavailable LEPE, CURTIS Attending Unavailable HAMDAN, RAIZA Attending Unavailable Allergies Allergy Classification Reported Allergen(s) Allergy Type Date of Onset Reaction(s) Facility Anti-Epileptic Agents (1 source) levETIRAcetam Drug Allergy 023 Itching [facility] Work Phone: Cephalosporins (antibiotic) (1 source) Cephalexin Drug Allergy Rash [facility] Dextromethorphan / Pyrilamine (1 source) Dextromethorphan / Pyrilamine Drug Allergy 022 Hives [facility] Work Phone: Dihydroergotamine (1 source) Dihydroergotamine Drug Allergy 023 Intolerance [facility] DOPamine Antagonists (1 source) Metoclopramide Drug Allergy Intolerance [facility] Macrolides (antibiotic) (1 source) Azithromycin Drug Allergy Other: See Comments [facility] vortioxetine (1 source) vortioxetine Drug Allergy 022 [facility] (20 sources) Azithromycin; Translations: [AZITHROMYCIN] Drug Allergy 017 Hives, Other: See Comments [facility] (20 sources) carBAMazepine Drug Allergy Other (See Comments) [facility] ([facility] Cephalexin; Translations: [CEPHALEXIN] Drug Allergy 10-19-2 017 Hives, Rash [facility] (20 sources) Metoclopramide; Translations: [METOCLOPRAMIDE] Drug Allergy 017 Hives, Intolerance, Unknown, Rash, Other (See Comments) [facility] (20 sources) Propranolol Drug Allergy Hives, Other (See Comments) [facility] (20 sources) Adhesive Tape-Silicones; Translations: [ADHESIVE TAPE-SILICONES] Drug Allergy Rash [facility] (20 sources) Dextromethorphan / Pyrilamine; Translations: [PYRILAMINE-DEXTROME THORPHAN] Drug Allergy [facility] Work Phone: (20 sources) vortioxetine; Translations: [VORTIOXETINE] Drug Allergy [facility] Work Phone: (20 sources) Dihydroergotamine; Translations: [DIHYDROERGOTAMINE] Drug Allergy 023 Intolerance, GI intolerance, GI Disturbance, [facility] (1 source) Azithromycin Drug Allergy [facility] [place] Rep[facility] (1 source) bee venom Drug allergy (disorder) [facility] [place] Repository (1 source) Cephalexin Drug Allergy [facility] [place] Repository (1 source) Desonide Drug Allergy [facility] [place] Rep[facility] (1 source) Iothalamate Drug Allergy [facility] [place] Repository (2 sources) Propranolol; Translations: [PROPRANOLOL] Drug Allergy [facility] [place] Repository (1 source) [place] DM Drug allergy (disorder) [facility] [place] Rep[facility] (20 sources) levETIRAcetam; Translations: [LEVETIRACETAM] Drug Allergy 023 Itching, [facility] Work Phone: (1 source) Valproate Drug Allergy 024 [facility] Work Phone: (20 sources) busPIRone Drug Allergy 022 [facility] Work Phone: (20 sources) Carbamazepine Allergy to substance Unknown [facility] (20 sources) Ciprofloxacin Drug Allergy [facility] (20 sources) Clarithromycin Allergy to substance GI intolerance [facility] (20 sources) Clindamycin Drug Allergy Unknown, Hives [facility] (20 sources) Dextromethorphan Drug Allergy Hives [facility] (20 sources) Dextromethorphan / Pyrilamine Drug Allergy Hives [facility] (20 sources) Honey bee venom Allergy to substance Unknown [facility] (20 sources) Levetiracetam Propensity to adverse reactions Itching [facility] (20 sources) Propranolol Drug Allergy Hives, Other: See Comments [facility] (20 sources) vortioxetine Drug Allergy Hives [facility] (20 sources) Other [facility] (20 sources) Wound Dressing Adhesive Drug Allergy Rash [facility] (20 sources) Prochlorperazine; Translations: [PROCHLORPERAZINE] Drug Allergy Intolerance, Anxiety [facility] (20 sources) Adhesive agent Propensity to adverse reactions to drug [facility] Dexamethasone Drug Allergy Hives [facility] (20 sources) Metoclopramide Drug Allergy [facility], [facility] Bee Venom Protein (Honey Bee) Propensity to adverse reactions to drug Anaphylaxis [facility] (20 sources) eptinezumab; Translations: [facility] Drug Allergy Rash, Itching [facility] (1 source) Adhesive agent Propensity to adverse reactions to drug [facility] ([facility]) Azithromycin Drug Allergy [facility] (1 source) Cephalexin Drug Allergy [facility] (1 source) levETIRAcetam Drug Allergy [facility]ository (1 source) Metoclopramide Drug Allergy [facility] Rep[facility] (1 source) Prochlorperazine Drug Allergy 024 [facility] Repository Medications Current Medications Medication Drug Class(es) Dates Sig (Normalized) Sig (Original) [id number] 200 actuat albuterol 0.09 mg/actuat metered dose inhaler (20 sources) beta2-Adrenergic Agonist Start: 05-27-2024 End: 09-30-2024 take 2 puff(s) by mouth every four hours as needed albuterol (VENTOLIN HFA) 90 mcg/actuation inhaler Indications: Moderate persistent asthma, unspecified whether complicated INHALE TWO PUFFS BY MOUTH EVERY 4 HOURS NEEDED 18 g 11 09/30/2024 Active Start: 05-27-2024 take 2 puff(s) by in halation every four hours albuterol HFA 90 mcg/act inhaler Inhale 2 puffs every 4 (four) hours if needed 05/27/2024 Active Start: 03-20-2024 take 3 mL by inhalat ion four times daily as needed for wheezing albuterol (PROVENTIL,VENTOLIN) 2.5 mg /3 mL (0.083 %) nebulizer solution Indications: Moderate asthma with acute exacerbation, unspecified whether persistent Inhale 3 mL (2.5 mg total) by nebulization 4 (four) times a day as needed for wheezing. 360 mL 10 03/20/2024 Active Start: 03-20-2024 albuterol (2.5 MG/3ML) 0.083% nebulizer solution Inhale 2.5 mg 4 (four) times a day as needed 03/20/2024 Active Start: 12-12-2023 End: 02-28-2024 take 2 puff(s) by inhalation every four hours for wheezing albuterol HFA 90 mcg/act inhaler Indications: Severe persistent asthma without complication ([facility]) Inhale 2 puffs every 4 (four) hours [...] by mouth at bedtime 06/24/2024 Active amoxicillin 500 mg oral capsule (1 source) Penicillin-class Antibacterial Start: 10-24-2024 End: 10-31-2024 take 1 capsule by mouth three times daily amoxicillin (AMOXIL) 500 mg capsule Indications: Left otitis media, unspecified otitis media type Take 1 capsule (500 mg total) by mouth 3 (three) times a day for 7 days. 21 capsule 10/24/2024 10/31/2024 Active amoxicillin 875 mg / clavulanate 125 [...] tablet (20 sources) gamma-Aminobutyric Acid-ergic Agonist Start: 10-02-2024 take 1 tablet by mouth once daily baclofen (LIORESAL) 10 mg tablet Indications: Muscle spasm TAKE 1 TABLET BY MOUTH NIGHTLY 30 tablet 3 10/02/2024 Active Start: 04-25-2024 End: 10-02-2024 take 1 tablet by mouth once daily baclofen (LIORESAL) 10 mg tablet Indications: Muscle spasm Take 1 tablet (10 mg total) by mouth nightly. 30 tablet 3 04/25/2024 10/02/2024 Discontinued Start: 11-10-2023 End: 02-08-2024 take 1 [...] minutes after.. 20 tablet 01/23/2024 02/09/2024 Discontinued [id number] 0.3 ml EPINEPHrine 1 mg/ml auto-injector (20 [...] 1 tablet by mouth in the morning estradioL (ESTRACE) 1 mg tablet Indications: Menopausal symptoms Take 1 tablet (1 mg total) by mouth in the morning. 30 tablet 3 05/15/2024 Active Start: 04-15-2024 End: 04-25-2024 estradioL (VIVELLE-DOT) [...] propionate 0.05 mg/actuat metered dose nasal spray (15 sources) Corticosteroid Start: 06-10-2024 take 1 spray(s) nasal route every other day fluticasone propionate (FLONASE) 50 mcg/actuation nasal spray Indications: Seasonal allergic rhinitis, unspecified trigger administer 1 spray IN EACH NOSTRIL EVERY OTHER DAY 16 g 2 06/10/2024 Active Start: 06-10-2024 take 1 spray(s) nasa l route once daily fluticasone (Flonase) 50 MCG/ACT nasal spray Administer 1 spray into each nostril Daily 06/10/2024 Active Start: 06-06-2024 End: 06-10-2024 take 1 spray(s) nasal route every other day fluticasone propionate (FLONASE) 50 mcg/actuation nasal spray Indications: Seasonal allergic rhinitis, unspecified trigger Administer 1 spray into each nostril every other day. 18.2 mL 2 06/06/2024 06/10/2024 Discontinued hmrzrkapefo-mhgrzrqns-ceylpi er (TRELEGY ELLIPTA) 200-62.5-25 mcg blister with device (20 sources) Start: 03-20-2024 take 1 puff(s) by inhalation in the morning ofhzrqzqmll-tidumfftq-tooiboqa (TRELEGY ELLIPTA) 200-62.5-25 mcg blister with device Indications: Moderate asthma with acute exacerbation, unspecified whether persistent Inhale 1 puff in the morning. 60 each 11 03/20/2024 Start: 03-20-2024 take 1 puff(s) by inhalation in the morning cefhlqcxedp-jlhmicumg-nppaafno (TRELEGY ELLIPTA) 200-62.5-25 mcg blister with device [...] (Edema) 30 tablet 3 01/23/2024 02/28/2024 Discontinued 12 hr guaiFENesin 600 mg extended release oral tablet (9 sources) Start: 10-24-2024 End: 11-03-2024 take 1 tablet by mouth once guaiFENesin (MUCINEX) 600 mg tablet extended release 12hr Take 1 tablet (600 mg total) by mouth every 12 (twelve) hours for 10 days. 20 tablet 10/24/2024 11/03/2024 Active Start: 04-21-2022 End: 03-25-2024 take 1 tablet by mouth once guaiFENesin (MUCINEX) 600 mg tablet extended release 12hr Take 1 tablet (600 mg total) by mouth every 12 (twelve) hours. 60 tablet 1 04/21/2022 03/25/2024 Discontinued (Therapy completed) Hydrocortisone (3 sources) Corticosteroid Start: 09-25-2023 End: 10-25-2023 Hydrocortisone 2 % cream Indications: Rash Apply 1 application topically in the morning and 1 application before bedtime. 28 g 09/25/2023 10/25/2023 Active hydrocortisone 10 mg/ml / neomycin 3.5 mg/ml / polymyxin b 30100 unt/ml otic solution (1 source) Aminoglycoside Antibacterial, Polymyxin-class Antibacterial, Corticosteroid Start: 10-24-2024 End: 10-31-2024 neomycin-polymyxin- HC (CORTISPORIN) otic solution Indications: Left otitis media, unspecified otitis media type Administer 3 drops into the left ear 3 (three) times a day for 7 days. 10 mL 10/24/2024 10/31/2024 Active ibuprofen 800 mg oral tablet (20 [...] 4 WEEKS 120 mL 11/26/2021 04/25/2024 Discontinued lidocaine 0.05 mg/mg topical ointment (20 sources) Antiarrhythmic, Amide Local Anesthetic Start: 04-24-2024 lidocaine (XYLOCAINE ) 5 % ointment Indications: Post-operative pain Apply 1 Application topically as needed for pain. 35.44 g 04/24/2024 Active Start: 10-20-2021 lidocaine 4 % external patch 1 patch loperamide hydrochloride 2 mg oral capsule (1 source) Opioid Agonist Start: 10-20-2021 loperamide (IMODIUM) capsule 2 mg loratadine 10 mg oral tablet (14 sources) Start: 06-06-2024 take 1 tablet by mouth once daily as needed loratadine (CLARITIN) 10 mg tablet Indications: Seasonal allergic rhinitis, unspecified trigger Take 1 tablet (10 mg total) by mouth daily as needed for allergies. 90 tablet 1 06/06/2024 Active 24 hr loratadine 10 mg [...] 1 tablet by sami th twice daily. metroNIDAZOLE 500 mg oral tablet [...] Indication: Intra-abdominal mupirocin 0.02 mg/mg topical ointment (8 sources) RNA Synthetase Inhibitor Antibacterial Start: 07-24-2024 [...] mg 30 tablet 04/10/2024 04/15/2024 Discontinued (Reorder) polymyxin b [id number] unt/ml / trimethoprim 1 mg/ml ophthalmic solution [...] 03/28/2024 Active predniSONE 20 mg oral tablet (17 sources) Start: 10-24-2024 End: 10-29-2024 take 2 tablets by mouth in the morning predniSONE (DELTASONE) 20 mg tablet Indications: Mild asthma with exacerbation, unspecified whether persistent Take 2 tablets (40 mg total) by mouth in the morning for 5 days. 10 tablet 10/24/2024 10/29/2024 Active Start: 05-21-2024 End: 05-26-2024 take 1 tablet [...] Indications: Mild persistent asthma with (acute) exacerbation ([facility]) Take 1 tablet (50 mg) by [...] g 01/15/2024 01/22/2024 Active 28 actuat tiotropium 0.40260 mg/actuat inhalation spray (20 sources) Anticholinergic Start: [...] tablet (20 sources) Start: 05-03-2024 End: 08-02-2024 ubrogepant (UBRELVY) 100 mg tablet 05/03/2024 Active zavegepant (ZAVZPRET) 10 mg/actuation nasal [...] (ZOMIG) 5 mg nasal spray Use 1 [place] in the nose as needed at onset of migraine headache. If symptoms persist or return, may repeat dose in other nostril after 2 hours. Maximum of 2 sprays per 24 hours 12 each 5 06/04/2024 Active Start: 03-17-2023 End: 05-31-2024 ZOLMitriptan (ZOMIG) 5 mg na lyn spray Use 1 [place] in the nose as needed at onset of migraine headache. If symptoms persist or return, may repeat dose in other nostril after 2 hours. Maximum of 2 sprays per 24 hours 12 Each 5 01/30/2024 05/31/2024 Discontinued Start: 06-24-2022 ZOLMitriptan ( ZOMIG) 5 mg nasal spray Use 1 [place] in the nose as needed at onset of migraine headache. If symptoms persist or return, may repeat dose in other nostril after 2 hours. Maximum of 2 sprays per 24 hours 10 Each 2 06/24/2022 Active Start: 06-24-2022 take 1 spray(s) nasa l route every twenty-four hours as needed ZOLMitriptan (ZOMIG) 5 mg nasal spray Use 1 [place] in the nose as needed. SPRAY IN 1 NOSTRIL AT ONSET OF MIGRAINE HEADACHE. If symptoms persist or return, may repeat dose after 2 hours. Maximum: 5 mg/dose; 10 mg per 24 hours 10 Each 2 06/24/2022 Active Comment on above: Use 1 [place] in the n ose as needed. SPRAY IN 1 NOSTRIL AT ONSET OF MIGRAINE HEADACHE. If symptoms persist or return, may repeat dose after 2 hours. Maximum: 5 mg/dose; 10 mg per 24 hours Use 1 [place] in the n ose as needed at [...] pain - pain scale 1-3, Starting on 04/08/24 at 1825 Start: 03-28-2024 take 2 tablets by mo [facility] every six hours as needed for pain acetaminophen (TYLENOL EXTRA STRENGTH) 500 mg tablet Take 2 tablets (1,000 mg total) by mouth every 6 (six) hours as needed for pain. 30 tablet 2 03/28/2024 Active Start: 03-28-2024 take 1 tablet by sami th every six hours as needed Acetaminophen Extra Strength 500 MG tablet Take 500 mg by mouth every 6 (six) hours if needed (pain) 03/28/2024 Active Start: 10-19-2021 acetaminophen (TYLENOL) tablet [...] INTRAVENOUS, NEEDE D, 1 dose, Starting on Mon05/02/24 at 1156, Until Mon05/02/24 at 1200, Administer per hypersensitivity/anaphylaxis grading in [...] mg docusate sodium 50 mg / sennosides, long term 8.6 mg oral tablet (11 sources) Start: [...] injection (1 source) Histamine-2 Receptor Antagonist Start: End: 20 mg, INTRAVENOUS, NEEDED, 1 dose, Starting on Mon08/01/24 at 1056, Until Mon08/01/24 at 1146, Heartburn, REFRIGERATE fluconazole 150 mg [...] first month only. Refrigerate. Do not shake. 0.5 ml HYDROmorphone hydrochloride 1 mg/ml prefilled syringe (4 sources) Opioid Agonist Start: End: take 1 mg intravenously every four hours as needed for pain 1 mg, intravenous, Every 4 hours PRN, severe pain - pain scale 7-10, Starting on Mon04/08/24 at 1941, If IV push, administer over over 2 to 3 minutes. Look-alike/sound- alike medication - verify indication for use. Start: [...] 30 mg, INTRAVENOUS, ONCE, 1 dose, On 08/02/24 at 1030, Ketorolac (Toradol) is indicated for [...] migraine). Take 10 mg by mouth. lamoTRIgine 200 mg oral tablet (20 sources) Mood Stabilizer, Anti-epileptic Agent Start: End: take 1 tablet by mouth in the morning, then take 1 tablet by mouth at bedtime lamoTRIgine (LaMICtal) 200 mg tablet Take 1 tablet (200 mg total) by mouth in the morning and 1 tablet (200 mg total) before bedtime. 01/29/2024 10/24/2024 Discontinued (Therapy completed) Start: 05-18-2023 End: 01-09-2024 take 1 tablet [...] in the morning. 03/25/2024 Discontinued (Dose adjustment) 200 actuat levalbuterol 0.045 mg/actuat metered dose inhaler (8 sources) beta2-Adrenergic Agonist Start: 01-27-2022 End: 03-25-2024 take 1-2 puff(s) by inhalation every four [...] 300 mg oral tablet (20 sources) Start: 04-08-2024 End: 04-10-2024 600 mg, oral, Nightly, First dose on Mon04/08/24 at 2200, Food-Drug Interaction Education Required Look-alike/sound- alike medication - verify indication for use Maintain [...] ER (Eskalith) 450 MG 12 hr tablet [place] 01/09/2024 Discontinued 1 ml LORazepam 2 mg/ml [...] over 0.5-1 Hours, ONCE, 1 dose, On 6/13/25 at 1030, Magnesium sulfate iv bolus will [...] completed) Start: 01-24-2024 End: 04-23-2024 nystatin (Mycostatin) [id number] UNIT/GM powder Indications: Rash , Yeast dermatitis [...] 4 mg phentermine hydrochloride 37.5 mg oral capsule (20 sources) Sympathomimetic Amine Anorectic Start: 06-06-2024 End: 10-24-2024 take 1 capsule by mouth once daily in the morning phentermine 37.5 MG capsule Indications: Weight loss Take 1 capsule (37.5 mg total) by mouth every morning. 30 capsule 06/06/2024 10/24/2024 Discontinued (Therapy completed) Start: 03-21-2023 End: 04-08-2024 take 1 tablet by mouth once daily before breakfast phentermine (ADIPEX-P) 37.5 mg tablet Take 1 tablet (37.5 mg total) by mouth every morning before breakfast. 01/10/2024 04/08/2024 Discontinued (Therapy completed) Comment on above: take 1 tablet by sami th every morning before meals piperacillin-tazobactam (ZOSYN) 4.5 g in sodium chloride 0.9 % 50 mL IVPB-MBP (1 source) Start: 04-08-2024 End: 04-08-2024 4.5 g, intravenous, at 100 mL/hr, Administer over 0.5 Hours, Once, On Mon04/08/24 at 1615, For 1 dose, ADD-VANTAGE/MBP- Discard 24 hours after activating; dissolve drug prior to administration polyethylene glycol 3350 74803 mg powder for oral solution (1 source) [...] that caused by tuberculosis or sexually transmitteddisease) (7 sources) Infection of bilateral eyes; Translations: [Unspecified [...] Other custodial (current) drug therapy; Translations: [OTH LONG-TERM CURRENT DRUG THERAPY] Onset: 06-22-2022 Episodic Other aftercare (2 sources) Wound finding; Translations: [Encounter for other specified aftercare] 04-02-2024 Episodic Other connective tissue disease (2 sources) Spasm; Translations: [Other muscle spasm] 04-25-2024 Episodic [...] sweating; Translations: [Generalized hyperhidrosis] 04-16-2024 Episodic Other upper respiratory disease (2 sources) Seasonal allergic rhinitis; Translations: [Other seasonal allergic rhinitis] 06-06-2024 Chronic Other upper respiratory infections (1 source) Acute pansinusitis; Translations: [Acute pansinusitis, unspecified] 05-21-2024 Episodic Otitis media and related conditions (1 source) Otitis media of left ear; Translations: [Otitis media, unspecified, left ear] 10-24-2024 Episodic Ovarian cyst (11 sources) Complex ovarian [...] anomaly ruled out] Onset: 06-04-2019 06-04-2019 Episodic Other skin disorders (8 sources) Ingrowing great toenail; Translations: [Ingrowing nail] Onset: 07-24-2024 07-24-2024 Episodic Residual codes; unclassified (1 source) Acquired [...] Reference Range Facility [facility] APRIL NICHOLSON ([id number]) 1995 F Date Time Provider Department 08/05/24 RHIANNON ACUNA MNOPRX During your visit today, we recorded the following information about you: Rhiannon Acuna 08/06/2024 9:58 AM Signed Ambulatory Pharmacy Prior Authorization Note Provider Intervention Required?: No - Pharmacy completed on your behalf. Was the PA documented within the ePA workqueue?: No Rx Plan: Medicaid MCO ([facility]) Drug: Zavzpret 10MG/ACT solution Cover My Meds Chong: [id number] Determination: Approved Prior Authorization/Case #: [id number] Prior Authorization Expiration: 01/31/2025 Time to PA [...] refills. Prescriptions will now be processed through [facility] for determination of next steps. For questions relating to this submission, please contact [facility] at [phone] Allergies As of Date: 08/05/2024 Noted Allergy [...] Hives PROCHLORPERAZINE 12/29/2023 5 - Intolerance VYEPTI (EPTINEZUMAB-JJ) 05/02/2024 2 - Rash 9 - Itching [...] (ZOMIG) 5 mg nasal spray Use 1 [place] in the nose as needed at onset [...] Encounter Status:Closed by RHIANNON ACUNA on 08/06/24 [facility] Jori 08-02-2024 CN Office Visit (NHMNS2) ---- APRIL NICHOLSON ([id number]) 1995 F Date Time Provider Department 08/02/24 11:00 AM [facility] During your visit today, we [...] Lymph 1.00 - 4.00 k/uL 0.84 Abs [place] <0.87 k/uL 0.06 Abs Eosin <0.46 k/uL [...] ZOLMitriptan (ZOMIG) 5 mg nasal sprayUse 1 [place] in the nose as needed at onset [...] pain be (more content not included)... [facility] Telephone (KIZZYQ) ---- APRIL NICHOLSON ([id number]) 1995 F Date Time Provider Department 07/05/24 [...] Intolerance VORTIOXETINE 08/06/2021 4 - Hives VYEPTI ([facility]) 05/02/2024 2 - Rash 9 - Itching [...] (ZOMIG) 5 mg nasal spray Use 1 [place] in the nose as needed at onset [...] Status:Closed by MENDOZA DOOLEY on 07/05/24 Normal [facility] Urinalysis macro (dipstick) panel (U)on 07-01-2024 Bilirubin, UA Negative Negative - 4(70) +++ mg/dL [facility] Blood, UA Negative Negative - 50 Isiah/mcL [facility] Clarity, UA Clear [facility] re Color, UA Yellow [facility] Glucose, UA Negative Negative - 1999(110) ++++ mg/dL [facility] Interpretation and review of laboratory results Abnormal [facility] Ketones, UA Negative Negative - 160(16) ++++ mg/dL [facility] Leukocytes, UA Negative Negative - 500+++ Blanca/mcL [facility] Nitrite, UA Negative Negative - Positive [facility] pH, UA 6 5 - [address] [facility] Protein, UA Negative Negative - 1999(20) ++++ mg/dL [facility] Spec Grav, UA 1.025 1 - 1.03 [facility] Urobilinogen, UA 0.2 0.2 - 12 mg/dL [facility] Lab Reporton 06-11-2024 Report Normal [facility] Comment on above: Performed By: #### D SHANON #### Performed at [facility], [address] [place] [address] 05-07-2024 CNPN Telephone (MNOPRX) ---- BHARATCAROLINAAPRIL L ([id number]) 1995 F Date Time Provider Department 05/07/24 [...] will put in the PA tanner. Thanks! Angley Cotton RN [facility] P: , F: Angely Cotton RN 05/08/2024 3:21 PM Signed [facility] received prescription(s) for Ubrelvy 100MG tablets . Benefits investigation was conducted, indicating that a prior authorization is required. All pertinent clinical information was submitted to insurance. Epic- Referral # [id number] Angely Cotton RN [facility] P: , F: Angely Cotton RN 05/13/2024 9:21 AM Signed Ambulatory Pharmacy Prior Authorization Note Provider Intervention Required?: No - Pharmacy completed on your behalf. Was the PA documented within the ePA workqueue?: No Rx Plan: Medicaid MCO ([facility]) Drug: Ubrelvy 100MG tablets Cover My Meds Chong: [id number] Determination: Approved Prior Authorization/Case #: [id number] Prior Authorization Expiration: 05/07/24 Time to PA [...] refills. Prescriptions will now be processed through [facility] for determination of next steps. For questions relating to this submission, please contact [facility] at [phone] Allergies As of Date: 05/07/2024 Noted Allergy [...] Intolerance VORTIOXETINE 08/06/2021 4 - Hives VYEPTI ([facility]) 05/02/2024 2 - Rash 9 - Itching [...] (ZOMIG) 5 mg nasal spray Use 1 [place] in the nose as needed at onset [...] by MU (more content not included)... Normal [facility] IGP,APTIMA HPV,AGE GDLNon AGE GDLN ACOG TESTING Note . [facility] Comment on above: TESTS RESULT FLAG U NITS REF RANGE LAB Clinician Provided Cytology Information Source.............Vagina No. of containers..01 ThinPrep Vial Age Algo ACOG Becca... FLAG LEGEND: L-Low Normal,H-High Normal,LL-Alert Low,HH-Alert High <-Panic Low,>-Panic High,A-Abnormal,AA-Critical Abnormal Performed at: 01 =G [facility] [id number] Pearl Franco MD, IGP, RFX APTIMA HPV ASCU Note . [facility] Comment on above: TESTS RESULT FLAG UN ITS REF RANGE LAB DIAGNOSIS: 02 NEGATIVE FOR INTRAEPITHELIAL LESION OR MALIGNANCY. Specimen adequacy: 02 Satisfactory for evaluation. No endocervical component is identified. Performed by: Daksha Nichole Airplane Dispatcher . 02 Note: Note 02 The Pap [...] Low,>-Panic High,A-Abnormal,AA-Critical Abnormal Performed at: [address] [facility] [address] [id number] Pearl Franco MD, Performed at: =G - [facility] [address] [id number] Motor Vehicle Dispatcher: Pearl Franco MD, Phone: [phone] Performed at: - [facility] [id number] Motor Vehicle Dispatcher: Pearl Franco MD, Phone: [phone] [facility] e CBC auto differentialon 03-23 Band form neutrophils/100 WBC (Bld) 3 % [facility] Eosinophils (Bld) [#/Vol] 0.3 10*3/uL [facility] Eosinophils/100 WBC (Bld) 3 % [facility] Erythrocyte distribution width (RBC) [Ratio] 13.7 % 11.5 - 15.0 % [facility] Hematocrit (Bld) [Volume fraction] 32.8 % Low 35 - 47 % [facility] Hemoglobin (Bld) [Mass/Vol] 11.1 g/dL Low 11.7 - 15.5 g/dL [facility] Interpretation and review of laboratory results Abnormal [facility] Lymphocytes (Bld) [#/Vol] 1.2 10*3/uL [facility] Lymphocytes/100 WBC (Bld) 12 % [facility] MCH (RBC) [Entitic mass] 29 pg 27 - 34 pg [facility] MCHC (RBC) [Mass/Vol] 33.8 g/dL 32 - 36 g/dL [facility] MCV (RBC) [Entitic vol] 86 fL 80 - 100 fL [facility] Monocytes (Bld) [#/Vol] 0.6 10*3/uL [facility] Monocytes/100 WBC (Bld) 6 % [facility] Neutrophils (Bld) [#/Vol] 7.6 10*3/uL High [facility] Platelet mean volume (Bld) [Entitic vol] 7.7 fL 7 - 12 fL [facility] Platelets (Bld) [#/Vol] 225 10*3/uL [facility] Polychromasia LM Ql (Bld) 1+ Abnormal NONE^NONE [facility] RBC (Bld) [#/Vol] 3.82 10*6/uL [facility] Segmented neutrophils/100 WBC (Bld) 76 % [facility] WBC corrected for nucl RBC Auto (Bld) [#/Vol] 9.7 [facility] Comprehensive metabolic pane srikanth 04-10-2024 Albumin [Mass/Vol] 3.3 g/dL 3.2 - 5.3 g/dL [facility] ALP [Catalytic activity/Vol] 80 U/L 39 - 130 U/L [facility] ALT No additional P-5'-P [Catalytic activity/Vol] 39 U/L High 0 - 31 U/L [facility] Anion gap [Moles/Vol] 7 mmol/L 5 - 15 mmol/L [facility] AST [Catalytic activity/Vol] 16 U/L 0 - 41 U/L [facility] Bilirubin [Mass/Vol] 0.3 mg/dL 0.3 - 1 .2 mg/dL [facility] Calcium [Mass/Vol] 9.2 mg/dL 8.5 - 10. 5 mg/dL [facility] Chloride [Moles/Vol] 107 mmol/L 98 - 10 9 mmol/L [facility] CO2 [Moles/Vol] 27 mmol/L 22 - 32 mmol/L [facility] Creatinine [Mass/Vol] 0.55 mg/dL 0.40 - 1.00 mg/dL [facility] Comment on above: METHOD TRACEABLE TO IDMI STANDARD eGFR (CKD-EPI)non-race dependent - PINF [facility] Comment on above: Reported eGFR is based on the CKD-EPI 202 equation that does not use a race coefficient. Glucose [Mass/Vol] 102 mg/dL High 65 - 99 mg/dL [facility] Interpretation and review of laboratory results Abnormal [facility] Potassium [Moles/Vol] 4.1 mmol/L 3.5 - 5.0 mmol/L [facility] Protein [Mass/Vol] 6.4 g/dL 6.0 - 8.0 g/dL [facility] Sodium [Moles/Vol] 141 mmol/L 134 - 146 mmol/L [facility] Urea nitrogen [Mass/Vol] 9 mg/dL 5 - 23 mg/dL [facility] Bacteria identified Cx Nom ( U)on 04-09-2024 Service comment (Unsp spec) [Interp] URINE RECEIVED WITHOUT PRESERVATIVE [facility] Service comment (Unsp spec) [Interp] 10-50,000 ORGANISMS/mL NORMAL UROGENITAL JANIYA [facility] Basic Metabolic Panelon 03-23 Anion gap [Moles/Vol] 12 mmol/L 5 - 15 mmol/L [facility] Calcium [Mass/Vol] 8.9 mg/dL 8.5 - 10. 5 mg/dL [facility] Chloride [Moles/Vol] 103 mmol/L 98 - 10 9 mmol/L [facility] CO2 [Moles/Vol] 24 mmol/L 22 - 32 mmol/L [facility] Creatinine [Mass/Vol] 0.61 mg/dL 0.40 - 1.00 mg/dL [facility] Comment on above: METHOD TRACEABLE TO IDMI STANDARD eGFR (CKD-EPI)non-race dependent - PINF [facility] Comment on above: Reported eGFR is based on the CKD-EPI 2021 equation that does not use a race coefficient. Glucose [Mass/Vol] 106 mg/dL High 65 - 99 mg/dL [facility] Interpretation and review of laboratory results Abnormal [facility] Potassium [Moles/Vol] 4 mmol/L 3.5 - 5.0 mmol/L [facility] Sodium [Moles/Vol] 139 mmol/L 134 - 146 mmol/L [facility] Urea nitrogen [Mass/Vol] 9 mg/dL 5 - 23 mg/dL [facility] CBC auto differentialon 03-23 Band form neutrophils/100 WBC (Bld) 1 % [facility] Eosinophils (Bld) [#/Vol] 0.8 10*3/uL High [facility] Eosinophils/100 WBC (Bld) 6 % [facility] Erythrocyte distribution width (RBC) [Ratio] 13.5 % 11.5 - 15.0 % [facility] Hematocrit (Bld) [Volume fraction] 32.9 % Low 35 - 47 % [facility] Hemoglobin (Bld) [Mass/Vol] 11.2 g/dL Low 11.7 - 15.5 g/dL [facility] Interpretation and review of laboratory results Abnormal [facility] Lymphocytes (Bld) [#/Vol] 1.5 10*3/uL [facility] Lymphocytes/100 WBC (Bld) 11 % [facility] MCH (RBC) [Entitic mass] 28.8 pg 27 - 34 pg [facility] MCHC (RBC) [Mass/Vol] 34 g/dL 32 - 36 g/dL [facility] MCV (RBC) [Entitic vol] 85 fL 80 - 100 fL [facility] Monocytes (Bld) [#/Vol] 0.5 10*3/uL [facility] Monocytes/100 WBC (Bld) 4 % [facility] Neutrophils (Bld) [#/Vol] 10.6 10*3/uL High [facility] Platelet mean volume (Bld) [Entitic vol] 7.5 fL 7 - 12 fL [facility] Platelets (Bld) [#/Vol] 232 10*3/uL [facility] Polychromasia LM Ql (Bld) 1+ Abnormal NONE^NONE [facility] RBC (Bld) [#/Vol] 3.89 10*6/uL [facility] Segmented neutrophils/100 WBC (Bld) 78 % [facility] WBC corrected for nucl RBC Auto (Bld) [#/Vol] 13.4 High [facility] MRSA DNA SAURABH+probe Ql (Unsp spec)on 04-09-2024 [facility] Mrsa Pcr nasal swabon 2024 MRSA DNA SAURABH+probe Ql (Unsp spec) Negative Negative^Neg ative [facility] APTTon 04-08-2024 aPTT Coag (PPP) [Time] 35 s Pr [facility] Basic Metabolic Panelon 03-23 Anion gap [Moles/Vol] 10 mmol/L 5 - 15 mmol/L [facility] Calcium [Mass/Vol] 9.4 mg/dL 8.5 - 10. 5 mg/dL [facility] Chloride [Moles/Vol] 101 mmol/L 98 - 10 9 mmol/L [facility] CO2 [Moles/Vol] 26 mmol/L 22 - 32 mmol/L [facility] Creatinine [Mass/Vol] 0.61 mg/dL 0.40 - 1.00 mg/dL [facility] Comment on above: METHOD TRACEABLE TO IDMI STANDARD eGFR (CKD-EPI)non-race dependent - PINF [facility] Comment on above: Reported eGFR is based on the CKD-EPI 2020 equation that does not use a race coefficient. Glucose [Mass/Vol] 94 mg/dL 65 - 99 mg/dL [facility] Potassium [Moles/Vol] 4 mmol/L 3.5 - 5.0 mmol/L [facility] Sodium [Moles/Vol] 137 mmol/L 134 - 146 mmol/L [facility] Urea nitrogen [Mass/Vol] 10 mg/dL 5 - 23 mg/dL [facility] C-reactive proteinon 025 CRP [Mass/Vol] 15.4 mg/dL High 0.000 - 0.744 mg/dL [facility] CBC auto differentialon 03-23 Basophils (Bld) [#/Vol] 0.1 10*3/uL [facility] Basophils/100 WBC (Bld) 0.5 % [facility] Eosinophils (Bld) [#/Vol] 0.2 10*3/uL [facility] Eosinophils/100 WBC (Bld) 1.1 % [facility] Erythrocyte distribution width (RBC) [Ratio] 13.4 % 11.5 - 15.0 % [facility] Hematocrit (Bld) [Volume fraction] 37.6 % 35 - 47 % [facility] Hemoglobin (Bld) [Mass/Vol] 12.8 g/dL 11.7 - 15.5 g/dL [facility] Interpretation and review of laboratory results Abnormal [facility] Lymphocytes (Bld) [#/Vol] 1.3 10*3/uL [facility] Lymphocytes/100 WBC (Bld) 6.7 % [facility] MCH (RBC) [Entitic mass] 28.7 pg 27 - 34 pg [facility] MCHC (RBC) [Mass/Vol] 34.1 g/dL 32 - 36 g/dL P [facility] MCV (RBC) [Entitic vol] 84 fL 80 - 100 fL [facility] Monocytes (Bld) [#/Vol] 0.7 10*3/uL [facility] Monocytes/100 WBC (Bld) 3.5 % [facility] Neutrophils (Bld) [#/Vol] 17.2 10*3/uL High [facility] Neutrophils/100 WBC (Bld) 88.2 % [facility] Platelet mean volume (Bld) [Entitic vol] 8.5 fL 7 - 12 fL [facility] Platelets (Bld) [#/Vol] 290 10*3/uL [facility] RBC (Bld) [#/Vol] 4.46 10*6/uL [facility] WBC corrected for nucl RBC Auto (Bld) [#/Vol] 19.6 High [facility] CRP [Mass/Vol]on 04-08-2024 Interpretation and review of laboratory results Abnormal [facility] CT Abdomen and Pelvis W cont [...] Kyle Solorio MD on 04/08/2024 4:09 PM [facility] Rad[facility] Study [facility] (narrative[facility] Pelvis W cont rast IVOrdered By: Kyle Solorio on 04-08-2024 [facility] Work Phone: ECG 12 leadon 04-08-[address] [facility] - Microbiology an d Antimicrobial susceptibilityon 04-08-2024 FLUAV+FLUBV RNA SAURABH+probe Ql (Unsp spec) Negative Negative^Neg ative [facility] Lactate (P anuradha) [Moles/Vol]o n 04-08-2024 [email or web address] [facility] Lactate w/ Reflexon 04-08-19 25 Lactate (P anuradha) [Moles/Vol] 0.8 mmol/L 0.4 - 2.0 mmol/L [facility] Comment on above: Result did not trigger repeat Lactate, re-order if needed. Liver panelon 04-08-2024 Albumin [Mass/Vol] 3.9 g/dL 3.2 - 5.3 g/dL [facility] ALP [Catalytic activity/Vol] 88 U/L 39 - 130 U/L [facility] ALT No additional P-5'-P [Catalytic activity/Vol] 59 U/L High 0 - 31 U/L [facility] AST [Catalytic activity/Vol] 26 U/L 0 - 41 U/L [facility] Bilirubin [Mass/Vol] 0.7 mg/dL 0.3 - 1 .2 mg/dL [facility] Bilirubin.direct [Mass/Vol] 0 mg/dL 0.0 - 0.4 mg/dL [facility] Interpretation and review of laboratory results Abnormal [facility] Protein [Mass/Vol] 7.3 g/dL 6.0 - 8.0 g/dL [facility] Magnesiumon 04-08-2024 Magnesium [Mass/Vol] 1.8 mg/dL 1.8 - 2 .6 mg/dL [facility] No Panel Informationon 04-08 [facility] POCT Nursing Urine Macroscop ic UAon 04-08-2024 Bilirubin Ql (U) Negative Negative^Ne g ative [facility] Glucose [Mass/Vol] Negative Negative^ Neg ative mg/dL [facility] Hemoglobin Ql (U) Trace Abnormal Negative^N eg ative [facility] Interpretation and review of laboratory results Abnormal [facility] Ketones (U) [Mass/Vol] Negative Negat manjinder^Neg ative mg/dL [facility] Leukocyte esterase Test strip Ql (U) Negative Negative^Neg ative [facility] Nitrite Ql (U) Negative Negative^Neg ative [facility] pH (U) 7.5 [pH] 5.0 - 8.5 [facility] Protein Ql (U) Trace Abnormal Negative^Neg ative mg/dL [facility] Specific gravity (U) [Rel density] 1.02 1.003 - 1.035 [facility] Urobilinogen Qn (U) 0.2 NINF [facility] Protime & INRon 04-08-2024 INR Coag (PPP) [Relative time] 1.3 {INR} High [facility] Interpretation and review of laboratory results Abnormal [facility] PT Coag (PPP) [Time] 14.7 s High [facility] SARS/FLU A+B/RSV by NAAT/Mol ecular (M4RT Collection Tube)on 04-08-2024 RSV RNA SAURABH+probe Nom (Unsp spec) Negative Negative^Neg ative [facility] SARS-CoV-2 (COVID-19) RNA SAURABH+probe Ql (Resp) Not detected Not Detected^Not Detected [facility] Comment on above: NOTE The Xpert Xpress [...] operators who are performing tests using either [employer] or [employer] systems and is limited to laboratories [...] specimen repeat. Fact Sheet for Healthcare Providers: https://www.fda.gov/media/999651/download Fact Sheet for Patients: https://www.fda.gov/media/897283/download [facility] Thyroid profile includes TSH FT4on 04-08-2024 Free T4 [Mass/Vol] 0.62 ng/dL 0.61 - 1. 60 ng/dL [facility] TSH Qn 0.54 m[IU]/L [facility] Troponin I, High Sensitivity on 04-08-2024 Troponin I.cardiac High sensitivity method [Mass/Vol] 2 ng/L NINF - 16 ng/L [facility] Troponin I, High Sensitivity 1 Houron 04-08-2024 Troponin I.cardiac High sensitivity method [Mass/Vol] 2 ng/L NINF - 16 ng/L [facility] Troponin I.cardiac High sens itivity method [Mass/Vol]on 04-08-2024 [facility] Chest Single viewon 04-08 XR [...] Renetta Andrea MD on 04/08/2024 2:12 PM [facility] Radiology Study observation (narrative) [facility] XR Chest Single viewOrdered By: Renetta Andrea on 04-08-2024 [facility] Work Phone: ECG 12 leadon 03-26-2024 TRACEMASTERVUE [facility] ABO Rh [place] 03-25-2024 [facility] Rh Nom (Bld) Positive [facility] Type and screen(includes ind irect ady)on 03-25-2024 ABO O [facility] Rh Nom (Bld) [facility] Respiratory allergy panelon 03-21-2024 A. alternata IgE Qn (S) kU/L NINF - 0.10 kU/L [facility] Comment on above: Class 0: Normal A. fumigatus IgE Qn (S) kU/L NINF - 0.10 kU/L [facility] Comment on above: Class 0: Normal Solomon Islander house dust mite IgE Qn (S) kU/L NINF - 0.10 kU/L [facility] Comment on above: Class 0: Normal Berm[place] grass IgE Qn (S) 0.95 kU/L High NINF - 0.10 kU/L [facility] Comment on above: Class 2:Moderate lev el of Allergy, indicative of stronger ongoing sensitization Boxelder IgE Qn (S) 0.15 kU/L High NINF - 0 .10 kU/L [facility] Comment on above: Class 0/1: Low level of Allergy, ongoing sensitization C. herbarum IgE Qn (S) kU/L NINF - 0.10 kU/L [facility] Comment on above: Class 0: Normal [place] Pollen IgE Qn (S) kU/L NINF - 0.10 kU/L [facility] Comment on above: Class 0: Normal Cat dander IgE Qn (S) 6.53 kU/L High NINF - 0.10 kU/L [facility] Comment on above: Class 3:High level o f Allergy, indicative of high level sensitization Cocklebur IgE Qn (S) 0.14 kU/L High NINF - 0.10 kU/L [facility] Comment on above: Class 0/1: Low level of Allergy, ongoing sensitization Cockroach IgE Qn (S) kU/L NINF - 0.10 kU/L [facility] Comment on above: Class 0: Normal Common Pigweed IgE Qn (S) kU/L NINF - 0.10 kU/L [facility] Comment on above: Class 0: Normal Common Ragweed IgE Qn (S) 0.37 kU/L High NINF - 0.10 kU/L [facility] Comment on above: Class 1:Low level of Allergy, indicative of ongoing sensitization Mckean IgE Qn (S) 0.25 kU/L High NINF - 0.10 kU/L [facility] Comment on above: Class 0/1: Low level of Allergy, ongoing sensitization Dog dander IgE Qn (S) 52.5 kU/L High NINF - 0.10 kU/L [facility] Comment on above: Class 5:Very High le kyara of Allergy,indicative of very high level sensitization house dust mite IgE Qn (S) kU/L NINF - 0.10 kU/L [facility] Comment on above: Class 0: Normal Goosefoot IgE Qn (S) kU/L NINF - 0.10 kU/L [facility] Comment on above: Class 0: Normal IgE Qn 602 [IU]/L High [facility] Interpretation and review of laboratory results Abnormal [facility] Ike grass IgE Qn (S) 0.96 kU/L High NINF - 0.10 kU/L [facility] Comment on above: Class 2:Moderate lev el of Allergy, indicative of stronger ongoing sensitization [place] blue grass IgE Qn (S) 2.55 kU/L High NINF - 0.10 kU/L [facility] Comment on above: Class 2:Moderate lev el of Allergy, indicative of stronger ongoing sensitization Judge Plane IgE Qn (S) kU/L NINF - 0.10 kU/L [facility] Comment on above: Class 0: Normal Marte Elder IgE Qn (S) kU/L NINF - 0.10 kU/L [facility] Comment on above: Class 0: Normal Mountain Juniper IgE Qn (S) kU/L NINF - 0.10 kU/L [facility] Comment on above: Class 0: Normal Mouse urine proteins IgE Qn (S) 0.34 kU/L [facility]U/L [facility] Comment on above: Class 0/1: Low level of Allergy, ongoing sensitization Mugwort IgE Qn (S) kU/L NINF - 0. 10 kU/L [facility] Comment on above: Class 0: Normal Nettle IgE Qn (S) kU/L NINF - 0.1 0 kU/L [facility] Comment on above: Class 0: Normal P. notatum IgE Qn (S) kU/L NINF - 0.10 kU/L [facility] Comment on above: Class 0: Normal Pecan or Adair Tree IgE Qn (S) 0.17 kU/L High NINF - 0.10 kU/L [facility] Comment on above: Class 0/1: Low level of Allergy, ongoing sensitization Saltwort IgE Qn (S) 0.38 kU/L High NINF - 0 .10 kU/L [facility] Comment on above: Class 1:Low level of Allergy, indicative of ongoing sensitization Sheep Armona IgE Qn (S) kU/L NINF - 0.10 kU/L [facility] Comment on above: Class 0: Normal Silver Birch IgE Qn (S) kU/L NINF - 0.10 kU/L [facility] Comment on above: Class 0: Normal Johan IgE Qn (S) 1.92 kU/L High NINF - 0. 10 kU/L [facility] Comment on above: Class 2:Moderate lev el of Allergy, indicative of stronger ongoing sensitization [place] IgE Qn (S) kU/L NINF - 0.10 kU/L [facility] Comment on above: Class 0: Normal [place] IgE Qn (S) kU/L NINF - 0.10 kU/L [facility] Comment on above: Class 0: Normal [place] IgE Qn (S) kU/L NINF - 0.10 kU/L [facility] Comment on above: Class 0: Normal [place] IgE Qn (S) kU/L NINF - 0.10 kU/L [facility] Comment on above: Class 0: Normal [facility] Pulmonary function test Spir ometry (Flow Volume Loop)Ordered By: Dinorah Cummins on 03-20-2024 [facility] CA 125on 03-18-2024 Cancer Ag 125 Qn 7 [arb'U]/mL 0 - 35 U/mL [facility] Comment on above: The method used for this test is Olga Marks DXI chemiluminescent immunoassay. Values obtained by different assay methods cannot be used interchangeably. CBC auto differentialon 02-21 Basophils (Bld) [#/Vol] 0 10*3/uL [facility] Basophils/100 WBC (Bld) 0.6 % [facility] Eosinophils (Bld) [#/Vol] 0.5 10*3/uL High [facility] Eosinophils/100 WBC (Bld) 8.4 % [facility] Erythrocyte distribution width (RBC) [Ratio] 13.6 % 11.5 - 15.0 % [facility] Hematocrit (Bld) [Volume fraction] 40.6 % 35 - 47 % [facility] Hemoglobin (Bld) [Mass/Vol] 13.7 g/dL 11.7 - 15.5 g/dL [facility] Interpretation and review of laboratory results Abnormal [facility] Lymphocytes (Bld) [#/Vol] 1.3 10*3/uL [facility] Lymphocytes/100 WBC (Bld) 23.5 % [facility] MCH (RBC) [Entitic mass] 29.2 pg 27 - 34 pg [facility] MCHC (RBC) [Mass/Vol] 33.7 g/dL 32 - 36 g/dL [facility] MCV (RBC) [Entitic vol] 87 fL 80 - 100 fL [facility] Monocytes (Bld) [#/Vol] 0.3 10*3/uL [facility] Monocytes/100 WBC (Bld) 5.3 % [facility] Neutrophils (Bld) [#/Vol] 3.5 10*3/uL [facility] Neutrophils/100 WBC (Bld) 62.2 % [facility] Platelet mean volume (Bld) [Entitic vol] 8.9 fL 7 - 12 fL [facility] Platelets (Bld) [#/Vol] 233 10*3/uL [facility] RBC (Bld) [#/Vol] 4.67 10*6/uL [facility] WBC corrected for nucl RBC Auto (Bld) [#/Vol] 5.7 [facility] CEAon 03-18-2024 Carcinoembryonic Ag [Mass/Vol] 0.9 ng/mL 0.0 - 3.0 ng/mL [facility] Comment on above: 0.0-3.0 ng/mL FOR NON SMOKERS 0.0-5.0 ng/mL FOR SMOKERS The method used for this test is Olga Marks DXI chemiluminescent immunoassay. Values obtained by different assay methods cannot be used interchangeably. Cancer Ag 125 Qnon [facility] Cancer Ag 19-9 Qnon 03-18-19 25 [facility] Cancer antigen 19-9on 2024 Cancer Ag 19-9 Qn U/mL 0.0 - 35.0 U/mL [facility] Comment on above: The method used for this test is Olga Marks DXI chemiluminescent immunoassay. Values obtained by different assay methods cannot be used interchangeably. Carcinoembryonic Ag [Mass/Vo l]on 03-18-2024 [facility] Comprehensive metabolic pane srikanth 03-18-2024 Albumin [Mass/Vol] 4.3 g/dL 3.2 - 5.3 g/dL [facility] ALP [Catalytic activity/Vol] 51 U/L 39 - 130 U/L [facility] ALT No additional P-5'-P [Catalytic activity/Vol] 21 U/L 0 - 31 U/L [facility] Anion gap [Moles/Vol] 10 mmol/L 5 - 15 mmol/L [facility] AST [Catalytic activity/Vol] 15 U/L 0 - 41 U/L [facility] Bilirubin [Mass/Vol] 0.5 mg/dL 0.3 - 1 .2 mg/dL [facility] Calcium [Mass/Vol] 9.2 mg/dL 8.5 - 10. 5 mg/dL [facility] Chloride [Moles/Vol] 104 mmol/L 98 - 10 9 mmol/L [facility] CO2 [Moles/Vol] 27 mmol/L 22 - 32 mmol/L [facility] Creatinine [Mass/Vol] 0.62 mg/dL 0.40 - 1.00 mg/dL [facility] Comment on above: METHOD TRACEABLE TO IDMI STANDARD eGFR (CKD-EPI)non-race dependent - PINF [facility] Comment on above: Reported eGFR is based on the CKD-EPI 2020 equation that does not use a race coefficient. Glucose [Mass/Vol] 88 mg/dL 65 - 99 mg/dL [facility] Interpretation and review of laboratory results Abnormal [facility] Potassium [Moles/Vol] 3.4 mmol/L Low 3.5 - 5.0 mmol/L [facility] Protein [Mass/Vol] 6.6 g/dL 6.0 - 8.0 g/dL [facility] Sodium [Moles/Vol] 141 mmol/L 134 - 146 mmol/L [facility] Urea nitrogen [Mass/Vol] 12 mg/dL 5 - 23 mg/dL [facility] CNPNon 02-22-2024 CNPN Telephone ([facility]) ---- APRIL NICHOLSON ([id number]) 1995 F Date Time Provider Department 02/22/24 SAGAR BARTH [facility] During your visit today, we recorded the following information about you: Jannette Mcleod RN 02/22/2024 12:04 PM Signed Prior Authorization submitted via [employer] on 02/22/2024: Insurance: [place] Medicaid Medication: Zolmitriptan Chong Code: [id number] Awaiting Response Jannette Mcleod RN 03/14/2024 2:23 [...] Date Reviewed: 01/22/2024 Reviewed by: Raiza Morales APRN.[employer] - Fully Assessed Reason for Visit: Insurance Authorization [[id number]] Cmt: Zolmitriptan Prescriptions as of 03/14/2024 - ZOLMitriptan (ZOMIG) 5 mg nasal spray Use 1 [place] in the nose as needed at onset [...] Status:Closed by JANNETTE MCLEOD on 02/22/24 Normal [facility] Pathology Request for Lab Co rpon 02-16-2024 Pathology Request for Lab Lilly Normal [facility] Comment on above: Order Comment: PATHO LOGY GI SPECIMEN Result Comment: See report. Scanned copy available in EMR. PERFORMED BY: [place] [address] PATHOLOGIST CLERICAL ORDER FILLER PALOMO JOYCE M.D. Performed By: #### P ATH TO [facility] #### [address] 01-29-20[facility] ---- APRIL NICHOLSON ([id number]) 1995 F Date Time Provider Department 01/29/24 SAGAR BARTH [facility] During your visit today, we recorded the following information about you: Kelsey Patel 01/29/2024 10:53 AM Signed Name of Caller: nicky Relationship to patient: pharmacy Last visit in this department: 09/19/2023 Reason for Call: Other : need to verify quantity on zolmitriptan. Callback number: [phone] Amy Shrestha MA 01/29/2024 12:06 PM Signed Per last Rx on 11/10/2023: Disp Refills Start End ZOLMitriptan (ZOMIG) 5 mg nasal spray 10 Each 5 11/10/2023 -- Sig: Use 1 [place] in the nose as needed at onset of migraine headache. If symptoms persist or return, may repeat dose in other nostril after 2 hours. Maximum of 2 sprays per 24 hours I called the pharmacy and hey need to know if Provider would like to dispense #6 or #12 cartridges. They do not come in 10. Please advise. Thank you Sagar Barth APRN.[employer] 01/30/2024 2:59 PM Addendum Dispense 12 pls. I rewrote the rx. GABBI Johnston Koli, APRN.CNP 01/30/2024 2:59 PM Signed The following approved medication requests have been transmitted electronically. Requested Prescriptions Signed Prescriptions Disp Refills ZOLMitriptan (ZOMIG) 5 mg nasal spray 12 Each 5 Sig: Use 1 [place] in the nose as needed at onset [...] an (ZOMIG) 5 mg nasal sprayUse 1 [place] in the nose as needed at onset of migraine headache. If symptoms persist or return, may repeat dose in other nostril after 2 hours. Maximum of 2 sprays per 24 hoursDisp: 12 EachRfl: 5 Prescriptions as of 02/01/2024 - ZOLMitriptan (ZOMIG) 5 mg nasal spray Use 1 [place] in the nose as needed at onset [...] 5 01/30/2024 Route: NASAL Sig: Use 1 [place] in the nose as needed at onset of migraine headache. If symptoms persist or return, may repeat dose in other nostril after 2 hours. Maximum of 2 sprays per 24 hours Medications Discontinued During This Encounter Prescriptions - ZOLMitriptan (ZOMIG) 5 mg nasal spray (Discontinued) Use 1 [place] in the nose as needed at onset of migraine headache. If symptoms persist or return, may repeat dose in other nostril after 2 hours. Maximum of 2 sprays per 24 hours Encounter Status:Closed by KELSEY PATEL on 01/30/24 [facility] CNOVon 01-22-2024 CNOV Office Visit ([facility]) ---- APRIL NICHOLSON ([id number]) 1995 F Date Time Provider Department 01/22/24 2:30 PM RAIZA MORALES [facility] During your visit today, we recorded the following information about you: Raiza Morales APRN.[facility] 01/22/2024 1:57 PM Signed [facility] [...] Lymph 1.00 - 4.00 k/uL 0.84 Abs [place] <0.87 k/uL 0.06 Abs Eosin <0.46 k/uL [...] ZOLMitriptan (ZOMIG) 5 mg nasal sprayUse 1 [place] in the nose as needed at onset [...] IV fluids (more content not included)... Normal [facility] BLOOD GASES BTYon 06-20-2022 02 MODE ROOM AIR Normal [facility] Comment on above: Performed By: #### B MP #### [facility] Laboratory [address] [place] [address] Dr. Ibis Jimenez ALLENS TEST Positive [facility] Comment on above: Performed By: #### B MP #### [facility] Laboratory [address] [address] [address] Ibis Jimenez Base excess Calc (Bld) [Moles/Vol] -1.6000 mmol/L Normal -2.0-2.0 [facility] Comment on above: Performed By: #### B MP #### [facility] Laboratory [address] [address] [address] Ibis Jimenez BIPAP PRESSURE [facility] Comment on above: Performed By: #### B MP #### [facility] Laboratory [address] [address] [address] Ibis Jimenez CPAP [facility] Comment on above: Performed By: #### B MP #### [facility] Laboratory [address] [place] [address] Dr. Ibis Jimenez FIO2 [facility] Comment on above: Performed By: #### B MP #### [facility] [address] [address] [address] Ibis Jimenez HCO3 (Bld) [Moles/Vol] 23.8 mmol/L Normal 22.0-26.0 [facility] Comment on above: Performed By: #### B MP #### [facility] Laboratory [address] [place] [address] Dr. Ibis Jimenez LPM [facility] Comment on above: Performed By: #### B MP #### [facility] [address] [address] [address] Ibis Jimenez MINUTE VOLUME Normal [facility] Comment on above: Performed By: #### B MP #### [facility] [address] [address] [address] Ibis Jimenez Oxygen (Bld) [Partial pressure] 75.5 mm[Hg] Critically low 80.0-100.0 [facility] Comment on above: Performed By: #### B MP #### [facility] Laboratory [address] [place] [address] Dr. Ibis Jimenez Oxygen saturation in Blood 95.8 % Normal 95.0-100.0 [facility] Comment on above: Performed By: #### B MP #### [facility] Laboratory [address] [place] [address] Dr. Ibis Jimenez PCO2 41.8 mmHg Normal 35.0-45.0 [facility] Comment on above: Performed By: #### B MP #### [facility] Laboratory [address] [place] [address] Dr. Ibis Jimenez PEEP [facility] Comment on above: Performed By: #### B MP #### [facility] Laboratory [address] [place] [address] Dr. Ibis Jimenez pH (Bld) 7.363 [pH] Normal 7.350-7.450 [facility] Comment on above: Performed By: #### B MP #### [facility] [address] [place] [address] Dr. Ibis Jimenez [facility] Comment on above: Performed By: #### B MP #### [facility] [address] [place] [address] Dr. Ibis Jimenez PS [facility] Comment on above: Performed By: #### B MP #### [facility] [address] [place] [address] Dr. Ibis Jimenez PUNCTURE SITE LR [facility] Comment on above: Performed By: #### B MP #### [facility] Laboratory [address] [place] [address] Dr. Ibis Jimenez RATE [facility] Comment on above: Performed By: #### B MP #### [facility] [address] [place] [address] Dr. Ibis Jimenez VENT MODE [facility] Comment on above: Performed By: #### B MP #### [facility] Laboratory [address] [place] [address] Dr. Ibis Jimenez [facility] Comment on above: Performed By: #### B MP #### [facility] Laboratory [address] [place] [address] Dr. Ibis Jimenez CBC AUTO DIFFon 06-20-2022 BASO # 0.0 103/ul Normal 0.0-0.1 [facility] Comment on above: Performed By: #### A CET, SALYC #### [facility] Laboratory [address] [place] [address] Dr. Ibis Jimenez Basophils/100 WBC (Bld) 0.5 % Normal 0.2-2.0 [facility] Comment on above: Performed By: #### A CET, SALYC #### [facility] [address] [place] [address] Dr. Ibis Jimenez EO # 0.3 103/ul Normal 0.0-0.7 [facility] Comment on above: Performed By: #### A CET, SALYC #### [facility] [address] [place] [address] Dr. Ibis Jimenez Eosinophils/100 WBC (Bld) 4.2 % Normal 0.9-7.0 [facility] Comment on above: Performed By: #### A CET, SALYC #### [facility] [address] [place] [address] Dr. Ibis Jimenez Erythrocyte distribution width (RBC) [Ratio] 13.2 % Normal 11.0-15.0 [facility] Comment on above: Performed By: #### A CET, SALYC #### [facility] [address] [place] [address] Dr. Ibis Jimenez Hematocrit (Bld) [Volume fraction] 36.5 % Normal 36.0-48.0 [facility] Comment on above: Performed By: #### A CET, SALYC #### [facility] [address] [place] [address] Dr. Ibis Jimenez Hemoglobin (Bld) [Mass/Vol] 11.7 g/dL Critically low 12.0-16.0 [facility] Comment on above: Performed By: #### A CET, SALYC #### [facility] [address] [place] [address] Dr. Ibis iJmenez IG # 0.05 10e3/ul Critically high 0.00-0.03 [facility] Comment on above: Performed By: #### A CET, SALYC #### [facility] [address] [address] [address] Ibis Jimenez IG % 0.8 % Critically high 0.0-0.5 [facility] Comment on above: Performed By: #### A CET, SALYC #### [facility] [address] [address] [address] Ibis Jimenez LYMPH # 1.7 103/ul Normal 1.2-3.8 [facility] Comment on above: Performed By: #### A CET, SALYC #### [facility] [address] [address] [address] Ibis Jimenez Lymphocytes/100 WBC (Bld) 26.9 % Normal 20.5-60.0 [facility] Comment on above: Performed By: #### A CET, SALYC #### [facility] [address] [place] [address] Dr. Ibis Jimenez MANUAL DIFF REQ NO Normal [facility] Comment on above: Performed By: #### A CET, SALYC #### [facility] [address] [place] [address] Dr. Ibis Jimenez MCH (RBC) [Entitic mass] 28.7 pg Normal 26.7-34.0 [facility] Comment on above: Performed By: #### A CET, SALYC #### [facility] [address] [place] [address] Dr. Ibis Jimenez MCHC (RBC) [Mass/Vol] 32.1 g/dL Normal 29.9-35.2 [facility] Comment on above: Performed By: #### A CET, SALYC #### [facility] [address] [place] [address] Dr. Ibis Jimenez MCV (RBC) [Entitic vol] 89.7 fL Normal 81.0-99.0 [facility] Comment on above: Performed By: #### A CET, SALYC #### [facility] [address] [place] [address] Dr. Ibis Jimenez MONO # 0.6 103/ul Normal 0.3-0.8 [facility] Comment on above: Performed By: #### A CET, SALYC #### [facility] [address] [address] [address] Ibis Jimenez Monocytes/100 WBC (Bld) 8.9 % Normal 1.7-12.0 [facility] Comment on above: Performed By: #### A CET, SALYC #### [facility] [address] [place] [address] Dr. Ibis Jimenez NEUT # 3.8 103/ul Normal 1.4-6.5 [facility] Comment on above: Performed By: #### A CET, SALYC #### [facility] [address] [place] [address] Dr. Ibis Jimenez Neutrophils/100 WBC (Bld) 58.7 % Normal 43.0-75.0 [facility] Comment on above: Performed By: #### A CET, SALYC #### [facility] [address] [place] [address] Dr. Ibis Jimenez Platelet mean volume (Bld) [Entitic vol] 9.3 fL Critically low 9.5-13.5 [facility] Comment on above: Performed By: #### A CET, SALYC #### [facility] [address] [place] [address] Dr. Ibis Jimenez PLT 188 103/ul Normal 150-450 [facility] Comment on above: Performed By: #### A CET, SALYC #### [facility] [address] [place] [address] Dr. Ibis Jimenez RBC 4.07 106/ul Critically low 4.20-5.40 [facility] Comment on above: Performed By: #### A CET, SALYC #### [facility] [address] [place] [address] Dr. Ibis Jimenez WBC 6.4 103/ul Normal 4.0-11.0 [facility] Comment on above: Performed By: #### A CET, SALYC #### [facility] [address] [place] [address] Dr. Ibis Jimenez DRUG SCREEN RAPID (URINE)on 06-20-2022 AMP Negative Normal NEGATIVE [facility] Comment on above: Performed By: #### B MP #### [facility] [address] [place] [address] Dr. Ibis Jimenez BAR Positive Abnormal NEGATIVE [facility] Comment on above: Performed By: #### B MP #### [facility] [address] [place] [address] Dr. Ibis Jimenez BUP Negative Normal NEGATIVE [facility] Comment on above: Performed By: #### B MP #### [facility] [address] [place] [address] Dr. Ibis Jimenez BZO Positive Abnormal NEGATIVE [facility] Comment on above: Performed By: #### B MP #### [facility] [address] [place] [address] Dr. Ibis Jimenez SEMAJ Negative Normal NEGATIVE [facility] Comment on above: Performed By: #### B MP #### [facility] [address] [place] [address] Dr. Ibis Jimenez CUT-OFFS SEE BELOW Normal [facility] Comment on above: Result Comment: AMP (Amphetamine): 500ng/mL, BAR (Barbituates): 200 ng/mL, BZO (Benzodiazepines): 150 ng/mL, BUP (Buprenorphine): 10 ng/mL, SEMAJ (Cocaine): 150 ng/mL, mAMP (Methamphetamine): 500 ng/mL, MTD (Methadone): 200 ng/mL, OPI (Opiates): 100 ng/mL, OXY (Oxycodone): 100 ng/mL, PCP (Phencyclidine): 25 ng/mL, PPX (Propoxyphene): 300 ng/mL, THC (Cannabinoids): 50 ng/mL, TCA (Trycyclic Antidepressants): 300 ng/mL Performed By: #### B MP #### [facility] [address] [place] [address] Dr. Ibis Jimenez DRUG CUT HEADER DRUG CLASS TEST SYSTEM CUT-OFF CONCENTRATIONS ARE FOLLOWS: Normal [facility] Comment on above: Performed By: #### B MP #### [facility] Laboratory [address] [place] [address] Dr. Ibis Jimenez mAMP Negative Normal NEGATIVE [facility] Comment on above: Performed By: #### B MP #### [facility] [address] [place] [address] Dr. Ibis Jimenez MTD Negative Normal NEGATIVE [facility] Comment on above: Performed By: #### B MP #### [facility] [address] [place] [address] Dr. Ibis Jimenez OPI Negative Normal NEGATIVE [facility] Comment on above: Performed By: #### B MP #### [facility] [address] [place] [address] Dr. Ibis Jimenez OXY Negative Normal NEGATIVE [facility] Comment on above: Performed By: #### B MP #### [facility] [address] [place] [address] Dr. Ibis Jimenez PCP Negative Normal NEGATIVE [facility] Comment on above: Performed By: #### B MP #### [facility] Laboratory [address] [place] [address] Dr. Ibis Jimenez PPX Negative Normal NEGATIVE [facility] Comment on above: Performed By: #### B MP #### [facility] Laboratory [address] [place] [address] Dr. Ibis Jimenez TCA Positive Abnormal NEGATIVE [facility] Comment on above: Performed By: #### B MP #### [facility] Laboratory [address] [place], [place] [address] Dr. Ibis Jimenez THC Positive Abnormal NEGATIVE [facility] Comment on above: Performed By: #### B MP #### [facility] [address] [place] [address] Dr. Ibis Jimenez ER URINE PROFILEon 3 Bilirubin Ql (U) Negative Normal NEGATIVE [facility] Comment on above: Performed By: #### A CET, SALYC #### [facility] [address] [place] [address] Dr. Ibis Jimenez Clarity (U) CLEAR Normal CLEAR [facility] Comment on above: Performed By: #### A CET, SALYC #### [facility] [address] [place] [address] Dr. Ibis Jimenez Color (U) YELLOW Normal YELLOW [facility] Comment on above: Performed By: #### A CET, SALYC #### [facility] [address] [address] [address] Ibis Garcia micrscopic examination will be performed if indicated. Normal [facility] Comment on above: Performed By: #### A CET, SALYC #### [facility] [address] [place] [address] Dr. Ibis Jimenez Glucose Ql (U) Negative Normal NEGATIVE [facility] Comment on above: Performed By: #### A CET, SALYC #### [facility] [address] [address] [address] Ibis Jimenez Hemoglobin Ql (U) Negative Normal NEGATIVE [facility] Comment on above: Performed By: #### A CET, SALYC #### [facility] [address] [place] [address] Dr. Ibis Jimenez Ketones Ql (U) Negative Normal NEGATIVE [facility] Comment on above: Performed By: #### A CET, SALYC #### [facility] [address] [place] [address] Dr. Ibis Jimenez LEUKOCYTES Negative Normal NEGATIVE [facility] Comment on above: Performed By: #### A CET, SALYC #### [facility] [address] [place] [address] Dr. Ibis Jimenez Nitrite Ql (U) Negative Normal NEGATIVE [facility] Comment on above: Performed By: #### A CET, SALYC #### [facility] [address] [place] [address] Dr. Ibis Jimenez pH (U) 5.0 [pH] Normal 5-9 [facility] Comment on above: Performed By: #### A CET, SALYC #### [facility] [address] [place] [address] Dr. Ibis Jimenez SPEC GRAVITY >=1.030 Abnormal 1.005-<=1.02 5 [facility] Comment on above: Performed By: #### A CET, SALYC #### [facility] [address] [place] [address] Dr. Ibis Jimenez UA PROTEIN Negative Normal NEGATIVE/ TRACE [facility] Comment on above: Performed By: #### A CET, SALYC #### [facility] [address] [address] [address] Ibis Jimenez UR MICRO IND NOT INDICATED Normal [facility] Comment on above: Performed By: #### A CET, SALYC #### [facility] [address] [place] [address] Dr. Ibis Jimenez Urobilinogen Qn (U) 0.2 {Dinorah'U}/dL Normal 0.2 - 1. 0 [facility] Comment on above: Performed By: #### A CET, SALYC #### [facility] [address] [place] [address] Dr. Ibis Jimenez PROF CHEM 8 (BAS METB)on Anion gap [Moles/Vol] 13.1 mmol/L Normal [facility] Comment on above: Performed By: #### M DAVID #### [facility] [address] [place] [address] Dr. Ibis Jimenez Calcium [Mass/Vol] 8.3 mg/dL Critically low 8.5-10.1 [facility] Comment on above: Performed By: #### M DAVID #### [facility] [address] [place] [address] Dr. Ibis Jimenez Chloride [Moles/Vol] 109 mmol/L Critically high 98-107 [facility] Comment on above: Performed By: #### M DAVID #### [facility] [address] [place] [address] Dr. Ibis Jimenez CO2 [Moles/Vol] 25.7 mmol/L Normal 21.0-32.0 [facility] Comment on above: Performed By: #### M DAVID #### [facility] [address] [place] [address] Dr. Ibis Jimenez Creatinine [Mass/Vol] 0.82 mg/dL Normal 0.55-1.02 [facility] Comment on above: Performed By: #### M DAVID #### [facility] [address] [place] [address] Dr. Ibis Jimenez EGFR-AF [place] >60 Normal >=60 [facility] Comment on above: Performed By: #### M DAVID #### [facility] [address] [address] [address] Ibis Jimenez EGFR-NON AF [place] >60 Normal >=60 [facility] Comment on above: Performed By: #### M DAVID #### [facility] [address] [address] [address] Ibis Jimenez Glucose [Mass/Vol] 95 mg/dL Normal 74-106 [facility] Comment on above: Performed By: #### M DAVID #### [facility] [address] [address] [address] Ibis Jimenez Potassium [Moles/Vol] 3.8 mmol/L Normal 3.5-5.1 [facility] Comment on above: Performed By: #### M DAVID #### [facility] [address] [address] [address] Ibis Jimenez Sodium [Moles/Vol] 144 mmol/L Normal 136-145 [facility] Comment on above: Performed By: #### M DAVID #### [facility] [address] [address] [address] Ibis Jimenez Urea nitrogen [Mass/Vol] 16.0 mg/dL Normal 7.0-18.0 [facility] Comment on above: Performed By: #### M DAVID #### [facility] [address] [address] [address] Ibis Jimneez Urea nitrogen/Creatinine [Mass ratio] 19.5 mg/mg Normal [facility] Comment on above: Performed By: #### M DAVID #### [facility] [id number] Ibis Jimenez ACETAMINOPHENon 06-19-2022 Acetaminophen [Mass/Vol] ug/mL Critically low 10.0-30.0 [facility] Comment on above: Performed By: #### A CET, SALYC #### [facility] [address] [place] [address] Dr. Ibis Jimenez DRUG SCREEN RAPID (URINE)on 06-19-2022 AMP Negative Normal NEGATIVE [facility] Comment on above: Performed By: #### M DAVID #### [facility] [address] [place] [address] Dr. Ibis Jimenez BAR Positive Abnormal NEGATIVE [facility] Comment on above: Performed By: #### M DAVID #### [facility] [address] [place] [address] Dr. Ibis Jimenez BUP Negative Normal NEGATIVE [facility] Comment on above: Performed By: #### M DAVID #### [facility] [address] [place] [address] Dr. Ibis Jimenez BZO Positive Abnormal NEGATIVE [facility] Comment on above: Performed By: #### M DAVID #### [facility] [address] [place] [address] Dr. Ibis Jimenez SEMAJ Negative Normal NEGATIVE [facility] Comment on above: Performed By: #### M DAVID #### [facility] [address] [place] [address] Dr. Ibis Jimenez CUT-OFFS SEE BELOW Normal [facility] Comment on above: Result Comment: [...] ng/mL Performed By: #### M DAVID #### [facility] [address] [place] [address] Dr. Ibis Jimenez DRUG CUT HEADER DRUG CLASS TEST SYSTEM CUT-OFF CONCENTRATIONS ARE FOLLOWS: Normal [facility] Comment on above: Performed By: #### M DAVID #### [facility] [address] [place] [address] Dr. Ibis Jimenez mAMP Negative Normal NEGATIVE [facility] Comment on above: Performed By: #### M DAVID #### [facility] [address] [address] [address] Ibis Jimenez MTD Negative Normal NEGATIVE [facility] Comment on above: Performed By: #### M DAVID #### [facility] [address] [address] [address] Ibis Jimenez OPI Positive Abnormal NEGATIVE [facility] Comment on above: Performed By: #### M DAVID #### [facility] [address] [place] [address] Dr. Ibis Jimenez OXY Negative Normal NEGATIVE [facility] Comment on above: Performed By: #### M DAVID #### [facility] [address] [place] [address] Dr. Ibis Jimenez PCP Negative Normal NEGATIVE [facility] Comment on above: Performed By: #### M DAVID #### [facility] [address] [place] [address] Dr. Ibis Jimenez PPX Negative Normal NEGATIVE [facility] Comment on above: Performed By: #### M DAVID #### [facility] [address] [place] [address] Dr. Ibis Jimenez TCA Negative Normal NEGATIVE [facility] Comment on above: Performed By: #### M DAVID #### [facility] [address] [place] [address] Dr. Ibis Jimenez THC Positive Abnormal NEGATIVE [facility] Comment on above: Performed By: #### M DAVID #### [facility] [address] [place] [address] Dr. Ibis Jimenez ER URINE PROFILEon 3 Bilirubin Ql (U) Negative Normal NEGATIVE [facility] Comment on above: Performed By: #### M DAVID #### [facility] [address] [place] [address] Dr. Ibis Jimenez Clarity (U) CLEAR Normal CLEAR [facility] Comment on above: Performed By: #### M DAVID #### [facility] [address] [place] [address] Dr. Ibis Jimenez Color (U) YELLOW Normal YELLOW [facility] Comment on above: Performed By: #### M DAVID #### [facility] [address] [place] [address] Dr. Ibis RODRIGUEZ A micrscopic examination will be performed if indicated. Normal [facility] Comment on above: Performed By: #### M DAVID #### [facility] [address] [place] [address] Dr. Ibis Jimenez Glucose Ql (U) Negative Normal NEGATIVE [facility] Comment on above: Performed By: #### M DAVID #### [facility] [address] [address] [address] Ibis Jimenez Hemoglobin Ql (U) TRACE-INTACT Abnormal NEGATIVE [facility] Comment on above: Performed By: #### M DAVID #### [facility] [address] [place] [address] Dr. Ibis Jimenez Ketones Ql (U) Negative Normal NEGATIVE [facility] Comment on above: Performed By: #### M DAVID #### [facility] [address] [place] [address] Dr. Ibis Jimenez LEUKOCYTES Negative Normal NEGATIVE [facility] Comment on above: Performed By: #### M DAVID #### [facility] [address] [place] [address] Dr. Ibis Jimenez Nitrite Ql (U) Negative Normal NEGATIVE [facility] Comment on above: Performed By: #### M DAVID #### [facility] [address] [address] [address] Ibis Jimenez pH (U) 6.0 [pH] Normal 5-9 [facility] Comment on above: Performed By: #### M DAVID #### [facility] [address] [place] [address] Dr. Ibis Jimenez Protein (U) [Mass/Vol] 30 mg/dL Abnormal NEGAT MANJINDER/ TRACE [facility] Comment on above: Performed By: #### M DAVID #### [facility] [address] [place] [address] Dr. Ibis Jimenez SPEC GRAVITY 1.025 Normal 1.005-<=1.02 5 [facility] Comment on above: Performed By: #### M DAVID #### [facility] [address] [place] [address] Dr. Ibis Jimenez UR MICRO IND INDICATED Normal [facility] Comment on above: Performed By: #### M DAVID #### [facility] [address] [place] [address] Dr. Ibis Jimenez Urobilinogen Qn (U) 0.2 {Dinorah'U}/dL Normal 0.2 - 1. 0 [facility] Comment on above: Performed By: #### M DAVID #### [facility] [address] [place] [address] Dr. Ibis Jimenez ETHANOL (BLD ALC)on 06-20-19 23 ALC NOTE NOTE: 80 mg/dl is the legal limit for a blood alcohol level Normal [facility] Comment on above: Performed By: #### A MM #### [facility] [address] [place] [address] Dr. Ibis Jimenez Ethanol [Mass/Vol] mg/dL Normal [facility] Comment on above: Performed By: #### A MM #### [facility] [address] [place] [address] Dr. Ibis Jimenez POINT OF CARE GLUCOSEon 05-23 Glucose [Mass/Vol] 88 mg/dL Normal 74-106 [facility] Comment on above: Performed By: #### C VDTBH #### [facility] [address] [place] [address] Dr. Ibis Jimenez URon 06-19-2022 , QUAL Negative Normal NEGATIVE [facility] Comment on above: Performed By: #### M DAVID #### [facility] [address] [place] [address] Dr. Ibis Jimenez PROF CHEM 8 (BAS METB)on Anion gap [Moles/Vol] 12.6 mmol/L Normal [facility] Comment on above: Performed By: #### A MM #### [facility] [address] [address] [address] Ibis Jimenez Calcium [Mass/Vol] 8.4 mg/dL Critically low 8.5-10.1 [facility] Comment on above: Performed By: #### A MM #### [facility] [address] [address] [address] Ibis Jimenez Chloride [Moles/Vol] 107 mmol/L Normal 98-107 [facility] Comment on above: Performed By: #### A MM #### [facility] [address] [address] [address] Ibis Jimenez CO2 [Moles/Vol] 22.5 mmol/L Normal 21.0-32.0 [facility] Comment on above: Performed By: #### A MM #### [facility] [address] [place] [address] Dr. Ibis Jimenez Creatinine [Mass/Vol] 0.82 mg/dL Normal 0.55-1.02 [facility] Comment on above: Performed By: #### A MM #### [facility] [address] [place] [address] Dr. Ibis Jimenez EGFR-AF [place] >60 Normal >=60 [facility] Comment on above: Performed By: #### A MM #### [facility] [address] [place] [address] Dr. Ibis Jimenez EGFR-NON AF [place] >60 Normal >=60 [facility] Comment on above: Performed By: #### A MM #### [facility] [address] [address] [address] Ibis Jimenez Glucose [Mass/Vol] 87 mg/dL Normal 74-106 [facility] Comment on above: Performed By: #### A MM #### [facility] [address] [place] [address] Dr. Ibis Jimenez Potassium [Moles/Vol] 4.1 mmol/L Normal 3.5-5.1 [facility] Comment on above: Performed By: #### A MM #### [facility] [address] [place] [address] Dr. Ibis Jimenez Sodium [Moles/Vol] 138 mmol/L Normal 136-145 [facility] Comment on above: Performed By: #### A MM #### [facility] [address] [place] [address] Dr. Ibis Jimenez Urea nitrogen [Mass/Vol] 22.0 mg/dL Critically high 7.0-18.0 [facility] Comment on above: Performed By: #### A MM #### [facility] [address] [place] [address] Dr. Ibis Jimenez Urea nitrogen/Creatinine [Mass ratio] 26.8 mg/mg Normal [facility] Comment on above: Performed By: #### A MM #### [facility] [address] [place] [address] Dr. Ibis Jimenez SALICYLATEon 06-19-2022 SALICYLATE <2.8 Normal <=19.9 [facility] Comment on above: Performed By: #### A CET, SALYC #### [facility] [address] [place] [address] Dr. Ibis Jimenez URINE MICROSCOPIC ONLYon BACTERIA NONE SEEN Normal NONE SEEN [facility] Comment on above: Performed By: #### M DAVID #### [facility] [address] [place] [address] Dr. Ibis Jimenez Bacteria identified Cx Nom (U) NOT INDICATED Normal [facility] Comment on above: Performed By: #### M DAVID #### [facility] [address] [place] [address] Dr. Ibis Jimenez CAST SEEN Abnormal NONE SEEN [facility] Comment on above: Performed By: #### M DAVID #### [facility] [address] [place] [address] Dr. Ibis Jimenez Crystals LM Nom (Urine sed) NONE SEEN Normal NONE SEEN [facility] Comment on above: Performed By: #### M DAVID #### [facility] [address] [place] [address] Dr. Ibis Jimenez Epithelial cells LM Ql (Urine sed) MODERATE Abnormal NONE SEEN /RARE [facility] Comment on above: Performed By: #### M DAVID #### [facility] [address] [address] [address] Ibis Jimenez HYALINE CAST FEW Normal [facility] Comment on above: Performed By: #### M DAVID #### [facility] [address] [place] [address] Dr. Ibis Jimenez MUCOUS NONE SEEN Normal NONE SEEN [facility] Comment on above: Performed By: #### M DAVID #### [facility] [address] [place] [address] Dr. Ibis Jimenez RBC 2-5 Abnormal 0-2 [facility] Comment on above: Performed By: #### M DAVID #### [facility] [address] [place] [address] Dr. Ibis Jimenez WBC NONE SEEN Normal NONE SEEN [facility] Comment on above: Performed By: #### M DAVID #### [facility] [address] [place] [address] Dr. Ibis Jimenez CBC AUTO DIFFon 06-11-2022 BASO # 0.0 103/ul Normal 0.0-0.1 [facility] Comment on above: Performed By: #### C VDTBH #### [facility] [address] [place] [address] Dr. Ibis Jimenez Basophils/100 WBC (Bld) 0.3 % Normal 0.2-2.0 [facility] Comment on above: Performed By: #### C VDTBH #### [facility] [address] [place] [address] Dr. Ibis Jimenez EO # 0.0 103/ul Normal 0.0-0.7 [facility] Comment on above: Performed By: #### C VDTBH #### [facility] [address] [place] [address] Dr. Ibis Jimenez Eosinophils/100 WBC (Bld) 0.1 % Critically low 0.9-7.0 [facility] Comment on above: Performed By: #### C VDTBH #### [facility] [address] [place] [address] Dr. Ibis Jimenez Erythrocyte distribution width (RBC) [Ratio] 13.2 % Normal 11.0-15.0 [facility] Comment on above: Performed By: #### C VDTBH #### [facility] [address] [place] [address] Dr. Ibis Jimenez Hematocrit (Bld) [Volume fraction] 38.5 % Normal 36.0-48.0 [facility] Comment on above: Performed By: #### C VDTBH #### [facility] [address] [place] [address] Dr. Ibis Jimenez Hemoglobin (Bld) [Mass/Vol] 12.4 g/dL Normal 12.0-16.0 [facility] Comment on above: Performed By: #### C VDTBH #### [facility] [address] [place] [address] Dr. Ibis Jimenez IG # 0.20 10e3/ul Critically high 0.00-0.03 [facility] Comment on above: Performed By: #### C VDTBH #### [facility] [address] [place] [address] Dr. Ibis Jimenez IG % 1.8 % Critically high 0.0-0.5 [facility] Comment on above: Performed By: #### C VDTBH #### [facility] [address] [place] [address] Dr. Ibis Jimenez LYMPH # 0.5 103/ul Critically low 1.2-3.8 [facility] Comment on above: Performed By: #### C VDTBH #### [facility] [address] [place] [address] Dr. Ibis Jimenez Lymphocytes/100 WBC (Bld) 4.6 % Critically low 20.5-60.0 [facility] Comment on above: Performed By: #### C VDTBH #### [facility] [address] [place] [address] Dr. Ibis Jimenez MANUAL DIFF REQ NO Normal [facility] Comment on above: Performed By: #### C VDTBH #### [facility] [address] [place] [address] Dr. Ibis Jimenez MCH (RBC) [Entitic mass] 28.2 pg Normal 26.7-34.0 [facility] Comment on above: Performed By: #### C VDTBH #### [facility] [address] [place] [address] Dr. Ibis Jimenez MCHC (RBC) [Mass/Vol] 32.2 g/dL Normal 29.9-35.2 [facility] Comment on above: Performed By: #### C VDTBH #### [facility] [address] [place] [address] Dr. Ibis Jimenez MCV (RBC) [Entitic vol] 87.5 fL Normal 81.0-99.0 [facility] Comment on above: Performed By: #### C VDTBH #### [facility] [address] [place] [address] Dr. Ibis Jimenez MONO # 0.1 103/ul Critically low 0.3-0.8 [facility] Comment on above: Performed By: #### C VDTBH #### [facility] [address] [place] [address] Dr. Ibis Jimenez Monocytes/100 WBC (Bld) 1.3 % Critically low 1.7-12.0 [facility] Comment on above: Performed By: #### C VDTBH #### [facility] [address] [place] [address] Dr. Ibis Jimenez NEUT # 10.1 103/ul Critically high 1.4-6.5 [facility] Comment on above: Performed By: #### C VDTBH #### [facility] [address] [place] [address] Dr. Ibis Jimenez Neutrophils/100 WBC (Bld) 91.9 % Critically high 43.0-75.0 [facility] Comment on above: Performed By: #### C VDTBH #### [facility] [address] [place] [address] Dr. Ibis Jimenez Platelet mean volume (Bld) [Entitic vol] 9.1 fL Critically low 9.5-13.5 [facility] Comment on above: Performed By: #### C VDTBH #### [facility] [address] [place] [address] Dr. Ibis Jimenez PLT 240 103/ul Normal 150-450 [facility] Comment on above: Performed By: #### C VDTBH #### [facility] [address] [place] [address] Dr. Ibis Jimenez RBC 4.40 106/ul Normal 4.20-5.40 [facility] Comment on above: Performed By: #### C VDTBH #### [facility] [address] [place] [address] Dr. Ibis Jimenez WBC 11.0 103/ul Normal 4.0-11.0 [facility] Comment on above: Performed By: #### C VDTBH #### [facility] [address] [place] [address] Dr. Ibis Jimenez PROF 14(COMP METB)on 023 Albumin [Mass/Vol] 3.3 g/dL Critically low 3.4-5.0 [facility] Comment on above: Performed By: #### B MP #### [facility] [address] [place] [address] Dr. Ibis Jimenez Albumin/Globulin [Mass ratio] 0.9 {ratio} Normal [facility] Comment on above: Performed By: #### B MP #### [facility] [address] [place] [address] Dr. Ibis Jimenez ALP [Catalytic activity/Vol] 63 U/L Normal 46-116 [facility] Comment on above: Performed By: #### B MP #### [facility] [address] [place] [address] Dr. Ibis Jimenez ALT [Catalytic activity/Vol] 32 U/L Normal 14-59 [facility] Comment on above: Performed By: #### B MP #### [facility] [address] [place] [address] Dr. Ibis Jimenez Anion gap [Moles/Vol] 12.9 mmol/L Normal [facility] Comment on above: Performed By: #### B MP #### [facility] [address] [place] [address] Dr. Ibis Jimenez AST [Catalytic activity/Vol] 14 U/L Critically low 15-37 [facility] Comment on above: Performed By: #### B MP #### [facility] [address] [address] [address] Ibis Jimenez Bilirubin [Mass/Vol] 0.2 mg/dL Normal 0.2-1.0 [facility] Comment on above: Performed By: #### B MP #### [facility] [address] [address] [address] Ibis Jimenez Calcium [Mass/Vol] 8.5 mg/dL Normal 8.5-10.1 [facility] Comment on above: Performed By: #### B MP #### [facility] [address] [place] [address] Dr. Ibis Jimenez Chloride [Moles/Vol] 106 mmol/L Normal 98-107 [facility] Comment on above: Performed By: #### B MP #### [facility] [address] [address] [address] Ibis Jimenez CO2 [Moles/Vol] 26.6 mmol/L Normal 21.0-32.0 [facility] Comment on above: Performed By: #### B MP #### [facility] [address] [place] [address] Dr. Ibis Jimenez Creatinine [Mass/Vol] 0.89 mg/dL Normal 0.55-1.02 [facility] Comment on above: Performed By: #### B MP #### [facility] [address] [address] [address] Ibis Jimenez EGFR-AF [place]IZ[place] >60 Normal >=60 [facility] Comment on above: Performed By: #### B MP #### [facility] [address] [address] [address] Ibis Jimenez EGFR-NON AF [place] >60 Normal >=60 [facility] Comment on above: Performed By: #### B MP #### [facility] [address] [place] [address] Dr. Ibis Jimenez Globulin (S) [Mass/Vol] 3.6 g/dL Normal [facility] Comment on above: Performed By: #### B MP #### [facility] [address] [address] [address] Ibis Jimenez Glucose [Mass/Vol] 134 mg/dL Critically high 74-106 T [facility] Comment on above: Performed By: #### B MP #### [facility] [address] [address] [address] Ibis Jimenez Potassium [Moles/Vol] 4.5 mmol/L Normal 3.5-5.1 [facility] Comment on above: Performed By: #### B MP #### [facility] [address] [address] [address] Ibis Jimenez Protein [Mass/Vol] 6.9 g/dL Normal 6.4-8.2 [facility] Comment on above: Performed By: #### B MP #### [facility] [address] [address] [address] Ibis Jimenez Sodium [Moles/Vol] 141 mmol/L Normal 136-145 [facility] Comment on above: Performed By: #### B MP #### [facility] [address] [address] [address] Ibis Jimenez Urea nitrogen [Mass/Vol] 15.0 mg/dL Normal 7.0-18.0 [facility] Comment on above: Performed By: #### B MP #### [facility] [address] [address] [address] Ibis Jimenez Urea nitrogen/Creatinine [Mass ratio] 16.9 mg/mg Normal [facility] Comment on above: Performed By: #### B MP #### [facility] [address] [address] [address] HEAD WO CONon [...] NICHOLAS MARCUS Date: 2022-05-23 19:25 Normal The [facility] CT LSPINE WO CONon CT [facility] CON CT CERVICAL SPINE WITHOUT CONTRAST. CT [...] joints with vacuum phenomenon. [facility] Date: 2022-05-23 19:41 Normal The [facility] CT HEAD WO CONon 04-01-2022 CT HEAD [...] acute intracranial pathology. Electronically authenticated by: ROBIN MAHAMED Date: 2022-03-31 22:40 Normal The [facility] Covid-19 PCR (CVDTBH)on 03-23 SARS-CoV-2 (COVID-19) RNA SAURABH+probe Ql (Unsp spec) Not detected Normal NOT DETECTED The [facility] Comment on above: Result Comment: When diagnostic [...] for this test is supported by the [place] [employer]'s declaration that [...] used). Performed By: #### C VDTBH #### [facility] [address] [place] [address] Dr. Ibis Jimenez ER URINE PROFILEon 3 Bilirubin Ql (U) Negative Normal NEGATIVE [facility] Comment on above: Performed By: #### A CET, SALYC #### [facility] [address] [place], [place] [address] Dr. Ibis Jimenez Clarity (U) CLEAR Normal CLEAR The [facility] Comment on above: Performed By: #### A CET, SALYC #### [facility] [address] [place] [address] Dr. Ibis Jimenez Color (U) YELLOW Normal YELLOW The [facility] Comment on above: Performed By: #### A CET, SALYC #### [facility] [address] [place] [address] Dr. Ibis Jimenez ERUAHKishan A micrscopic examination will be performed if indicated. Normal The [facility] Comment on above: Performed By: #### A CET, SALYC #### [facility] [address] [place] [address] Dr. Ibis Jimenez Glucose Ql (U) Negative Normal NEGATIVE [facility] Comment on above: Performed By: #### A CET, SALYC #### [facility] [address] [place] [address] Dr. Ibis Jimenez Hemoglobin Ql (U) SMALL Abnormal NEGATIVE [facility] Comment on above: Performed By: #### A CET, SALYC #### [facility] [address] [place] [address] Dr. Ibis Jimenez Ketones Ql (U) Negative Normal NEGATIVE [facility] Comment on above: Performed By: #### A CET, SALYC #### [facility] [address] [place] [address] Dr. Ibis Jimenez LEUKOCYTES Negative Normal NEGATIVE [facility] Comment on above: Performed By: #### A CET, SALYC #### [facility] [address] [place] [address] Dr. Ibis Jimenez Nitrite Ql (U) Negative Normal NEGATIVE [facility] Comment on above: Performed By: #### A CET, SALYC #### [facility] [address] [place] [address] Dr. Ibis Jimenez pH (U) 5.5 [pH] Normal 5-9 [facility] Comment on above: Performed By: #### A CET, SALYC #### [facility] [address] [place] [address] Dr. Ibis Jimenez SPEC GRAVITY >=1.030 Abnormal 1.005-<=1.02 5 [facility] Comment on above: Performed By: #### A CET, SALYC #### [facility] [address] [place] [address] Dr. Ibis Jimenez UA PROTEIN Negative Normal NEGATIVE/ TRACE The [facility] Comment on above: Performed By: #### A CET, SALYC #### [facility] [address] [place] [address] Dr. Ibis Jimenez UR MICRO IND INDICATED Normal [facility] Comment on above: Performed By: #### A CET, SALYC #### [facility] [address] [place] [address] Dr. Ibis Jimenez Urobilinogen Qn (U) 0.2 {Dinorah'U}/dL Normal 0.2 - 1. 0 [facility] Comment on above: Performed By: #### A CET, SALYC #### [facility] [address] [place] [address] Dr. Ibis Jimenez INFLUENZA A AND B AGon 04-01 INFLUANE SEE BELOW Normal [facility] Comment on above: Result Comment: Nega tive for Flu A protein angiten. Infection due to Flu A cannot be ruled out. Flu A angiten in the sample may be below the detection limit of the test. Performed By: #### A MM #### [facility] [address] [place] [address] Dr. Ibis Jimenez INFLUBNEGH SEE BELOW Normal [facility] Comment on above: Result Comment: Nega tive for Flu B protein antigen. Infection due to Flu B cannot be ruled out. Flu B antigen in the sample may be below the detection limit of the test. Performed By: #### A MM #### [facility] [address] [place] [address] Dr. Ibis Jimenez INFLUENZA A AG Negative Normal NEGATIVE SEE COMMENT [facility] Comment on above: Performed By: #### A MM #### [facility] [address] [place] [address] Dr. Ibis Jimenez INFLUENZA B AG Negative Normal NEGATIVE SEE COMMENT [facility] Comment on above: Performed By: #### A MM #### [facility] [address] [place] [address] Dr. Ibis Jimenez LACTATE/LACTIC ACIDon 2022 Lactate [Moles/Vol] 1.9 mmol/L Normal 0.4-1.9 [facility] Comment on above: Performed By: #### L ACT #### [facility] [address] [place] [address] Dr. Ibis Jimenez URINE MICROSCOPIC ONLYon BACTERIA TRACE Abnormal NONE SEEN [facility] Comment on above: Performed By: #### A CET, SALYC #### [facility] [address] [place] [address] Dr. Ibis Jimenez Bacteria identified Cx Nom (U) NOT INDICATED Normal [facility] Comment on above: Performed By: #### A CET, SALYC #### [facility] [address] [place] [address] Dr. Ibis Jimenez CAST NONE SEEN Normal NONE SEEN [facility] Comment on above: Performed By: #### A CET, SALYC #### [facility] [address] [place] [address] Dr. Ibis Jimenez Crystals LM Nom (Urine sed) NONE SEEN Normal NONE SEEN [facility] Comment on above: Performed By: #### A CET, SALYC #### [facility] [address] [place] [address] Dr. Ibis Jimenez Epithelial cells LM Ql (Urine sed) RARE Normal NONE SEEN /RARE The [facility] Comment on above: Performed By: #### A CET, SALYC #### [facility] [address] [place] [address] Dr. Ibis Jimenez MUCOUS TRACE Abnormal NONE SEEN [facility] Comment on above: Performed By: #### A CET, SALYC #### [facility] [address] [place] [address] Dr. Ibis Jimenez RBC 0-2 Normal 0-2 [facility] Comment on above: Performed By: #### A CET, SALYC #### [facility] [address] [place] [address] Dr. Ibis Jimenez WBC NONE SEEN Normal NONE SEEN [facility] Comment on above: Performed By: #### A CET, SALYC #### [facility] [address] [place] [address] Dr. Ibis Jimenez AMMONIAon 03-31-2022 Ammonia (P) [Moles/Vol] 31 umol/L Normal 11-32 [facility] Comment on above: Performed By: #### A MM #### [facility] [address] [place] [address] Dr. Ibis Jimenez CBC AUTO DIFFon 03-31-2022 BASO # 0.0 103/ul Normal 0.0-0.1 [facility] Comment on above: Performed By: #### A MM #### [facility] [address] [place] [address] Dr. Ibis Jimenez Basophils/100 WBC (Bld) 0.4 % Normal 0.2-2.0 [facility] Comment on above: Performed By: #### A MM #### [facility] [address] [place] [address] Dr. Ibis Jimenez EO # 0.5 103/ul Normal 0.0-0.7 [facility] Comment on above: Performed By: #### A MM #### [facility] [address] [place] [address] Dr. Ibis Jimenez Eosinophils/100 WBC (Bld) 6.4 % Normal 0.9-7.0 [facility] Comment on above: Performed By: #### A MM #### [facility] [address] [place] [address] Dr. Ibis Jimenez Erythrocyte distribution width (RBC) [Ratio] 12.8 % Normal 11.0-15.0 [facility] Comment on above: Performed By: #### A MM #### [facility] [address] [place] [address] Dr. Ibis Jimenez Hematocrit (Bld) [Volume fraction] 36.6 % Normal 36.0-48.0 [facility] Comment on above: Performed By: #### A MM #### [facility] [address] [place] [address] Dr. Ibis Jimenez Hemoglobin (Bld) [Mass/Vol] 12.5 g/dL Normal 12.0-16.0 [facility] Comment on above: Performed By: #### A MM #### [facility] [address] [place] [address] Dr. Ibis Jimenez IG # 0.02 10e3/ul Normal 0.00-0.03 [facility] Comment on above: Performed By: #### A MM #### [facility] [address] [place] [address] Dr. Ibis Jimenez IG % 0.3 % Normal 0.0-0.5 [facility] Comment on above: Performed By: #### A MM #### [facility] [address] [place] [address] Dr. Ibis Jimenez LYMPH # 2.0 103/ul Normal 1.2-3.8 [facility] Comment on above: Performed By: #### A MM #### [facility] [address] [place] [address] Dr. Ibis Jimenez Lymphocytes/100 WBC (Bld) 25.0 % Normal 20.5-60.0 [facility] Comment on above: Performed By: #### A MM #### [facility] [address] [place] [address] Dr. Ibis Jimenez MANUAL DIFF REQ NO Normal [facility] Comment on above: Performed By: #### A MM #### [facility] [address] [place] [address] Dr. Ibis Jimenez MCH (RBC) [Entitic mass] 29.5 pg Normal 26.7-34.0 [facility] Comment on above: Performed By: #### A MM #### [facility] [address] [place] [address] Dr. Ibis Jimenez MCHC (RBC) [Mass/Vol] 34.2 g/dL Normal 29.9-35.2 [facility] Comment on above: Performed By: #### A MM #### [facility] [address] [place] [address] Dr. Ibis Jimenez MCV (RBC) [Entitic vol] 86.3 fL Normal 81.0-99.0 [facility] Comment on above: Performed By: #### A MM #### [facility] [address] [place] [address] Dr. Ibis Jimenez MONO # 0.4 103/ul Normal 0.3-0.8 [facility] Comment on above: Performed By: #### A MM #### [facility] [address] [place] [address] Dr. Ibis Jimenez Monocytes/100 WBC (Bld) 5.6 % Normal 1.7-12.0 [facility] Comment on above: Performed By: #### A MM #### [facility] [address] [place] [address] Dr. Ibis Jimenez NEUT # 4.9 103/ul Normal 1.4-6.5 [facility] Comment on above: Performed By: #### A MM #### [facility] [address] [place] [address] Dr. Ibis Jimenez Neutrophils/100 WBC (Bld) 62.3 % Normal 43.0-75.0 [facility] Comment on above: Performed By: #### A MM #### [facility] [address] [place] [address] Dr. Ibis Jimenez Platelet mean volume (Bld) [Entitic vol] 9.5 fL Normal 9.5-13.5 [facility] Comment on above: Performed By: #### A MM #### [facility] [address] [place] [address] Dr. Ibis Jimenez PLT 246 103/ul Normal 150-450 [facility] Comment on above: Performed By: #### A MM #### [facility] [facility] [place] [facility] [address] [place] [address] Dr. Ibis Jimenez RBC 4.24 106/ul Normal 4.20-5.40 [facility] [place] Comment on above: Performed By: #### A MM #### [facility] [place] [facility] [address] [place] [address] Dr. Ibis Jimenez WBC 7.8 103/ul Normal 4.0-11.0 [facility] [place] Comment on above: Performed By: #### A MM #### [facility] [place] [facility] [address] [place] [address] Dr. Ibis Jimenez CULTURE BLOODon 03-31-2022 Microscopic examination of blood, culture Culture Observations: NO GROWTH AT 5 DAYS. Normal [facility] Comment on above: Performed By: #### B [id number] #### [facility] [place] [facility] [address] [place] [address] Dr. Ibis Jimenez Microscopic examination of blood, culture Culture Observations: NO GROWTH AT 5 DAYS. Normal [facility] Comment on above: Performed By: #### B MP #### [facility] [place] [facility] [address] [place] [address] Dr. Ibis Jimenez LACTATE/LACTIC ACIDon 2022 Lactate [Moles/Vol] 2.8 mmol/L Critically high 0.4-1.9 [facility] Comment on above: Performed By: #### C VDTBH #### [facility] [place] [facility] [address] [place] [address] Dr. Ibis Jimenez PROF 14(COMP METB)on 023 Albumin [Mass/Vol] 3.4 g/dL Normal 3.4-5.0 [facility] Comment on above: Performed By: #### B MP #### [facility] [place] [facility] [address] [place] [address] Dr. Ibis Jimenez Albumin/Globulin [Mass ratio] 1.2 {ratio} Normal [facility] Comment on above: Performed By: #### B MP #### [facility] [place] [facility] [address] [place] [address] Dr. Ibis Jimenez ALP [Catalytic activity/Vol] 85 U/L Normal 46-116 [facility] Comment on above: Performed By: #### B MP #### [facility] [place] [facility] [address] [place] [address] Dr. Ibis Jimenez ALT [Catalytic activity/Vol] 18 U/L Normal 14-59 [facility] Comment on above: Performed By: #### B MP #### [facility] [place] [facility] [address] [place] [address] Dr. Ibis Jimenez Anion gap [Moles/Vol] 13.2 mmol/L Normal Th e [facility] [place] Comment on above: Performed By: #### B MP #### [facility] [place] [facility] [address] [address] [address] Ibis Jimenez AST [Catalytic activity/Vol] 11 U/L Critically low 15-37 [facility] Comment on above: Performed By: #### B MP #### [facility] [place] [facility] [address] [address] [address] Ibis Jimenez Bilirubin [Mass/Vol] 0.2 mg/dL Normal 0.2-1.0 [facility] Comment on above: Performed By: #### B MP #### [facility] [place] [facility] [address] [address] [address] Ibis Jimenez Calcium [Mass/Vol] 8.6 mg/dL Normal 8.5-10.1 [facility] Comment on above: Performed By: #### B MP #### [facility] [place] [facility] [address] [address] [address] Ibis Jimenez Chloride [Moles/Vol] 105 mmol/L Normal 98-107 [facility] Comment on above: Performed By: #### B MP #### [facility] [place] [facility] [address] [address] [address] Ibis Jimenez CO2 [Moles/Vol] 25.1 mmol/L Normal 21.0-32.0 [facility] Comment on above: Performed By: #### B MP #### [facility] [place] [facility] [address] [address] [address] Ibis Jimenez Creatinine [Mass/Vol] 0.80 mg/dL Normal 0.55-1.02 [facility] Comment on above: Performed By: #### B MP #### [facility] [place] [facility] [address] [address] [address] Ibis Jimenez EGFR-AF [place]IZ[place] >60 Normal >=60 [facility] Comment on above: Performed By: #### B MP #### [facility] [place] [facility] [address] [address] [address] Ibis Jimenez EGFR-NON AF [place] >60 Normal >=60 [facility] Comment on above: Performed By: #### B MP #### [facility] [place] [facility] [address] [address] [address] Ibis Jimenez Globulin (S) [Mass/Vol] 2.9 g/dL Normal [facility] Comment on above: Performed By: #### B MP #### [facility] [place] [facility] [address] [address] [address] Ibis Jimenez Glucose [Mass/Vol] 99 mg/dL Normal 74-106 [facility] Comment on above: Performed By: #### B MP #### [facility] [place] [facility] [address] [address] [address] Ibis Jimenez Potassium [Moles/Vol] 3.3 mmol/L Critically low 3.5-5.1 [facility] Comment on above: Performed By: #### B MP #### [facility] [place] [facility] [address] [place] [address] Dr. Ibis Jimenez Protein [Mass/Vol] 6.3 g/dL Critically low 6.4-8.2 [facility] Comment on above: Performed By: #### B MP #### [facility] [place] [facility] [address] [address] [address] Ibis Jimenez Sodium [Moles/Vol] 140 mmol/L Normal 136-145 [facility] Comment on above: Performed By: #### B MP #### [facility] [place] [facility] [address] [address] [address] Ibis Jimenez Urea nitrogen [Mass/Vol] 10.0 mg/dL Normal 7.0-18.0 [facility] Comment on above: Performed By: #### B MP #### [facility] [place] [facility] [address] [place] [address] Dr. Ibis Jimenez Urea nitrogen/Creatinine [Mass ratio] 12.5 mg/mg Normal [facility] Comment on above: Performed By: #### B MP #### [facility] [place] [facility] [address] [place] [address] Dr. Ibis Jimenez CBC AUTO DIFFon 01-14-2022 BASO # 0.0 103/ul Normal 0.0-0.1 [facility] Comment on above: Performed By: #### A MM #### [facility] [place] [facility] [address] [address] [address] Ibis Jimenez Basophils/100 WBC (Bld) 0.3 % Normal 0.2-2.0 [facility] Comment on above: Performed By: #### A MM #### [facility] [place] [facility] [address] [address] [address] Ibis Jimenez EO # 0.2 103/ul Normal 0.0-0.7 [facility] [place] Comment on above: Performed By: #### A MM #### [facility] [place] [facility] [address] [address] [address] Ibis Jimenez Eosinophils/100 WBC (Bld) 2.7 % Normal 0.9-7.0 [facility] Comment on above: Performed By: #### A MM #### [facility] [place] [facility] [address] [address] [address] Ibis Jimenez Erythrocyte distribution width (RBC) [Ratio] 13.2 % Normal 11.0-15.0 [facility] Comment on above: Performed By: #### A MM #### [facility] [place] [facility] [address] [place] [address] Dr. Ibis Jimenez Hematocrit (Bld) [Volume fraction] 35.7 % Critically low 36.0-48.0 [facility] Comment on above: Performed By: #### A MM #### [facility] [place] [facility] [address] [place] [address] Dr. Ibis Jimenez Hemoglobin (Bld) [Mass/Vol] 12.2 g/dL Normal 12.0-16.0 [facility] Comment on above: Performed By: #### A MM #### [facility] [place] [facility] [address] [address] [address] Ibis Jimenez IG # 0.04 10e3/ul Critically high 0.00-0.03 [facility] Comment on above: Performed By: #### A MM #### [facility] [place] [facility] [address] [address] [address] Ibis Jimenez IG % 0.5 % Normal 0.0-0.5 [facility] [place] Comment on above: Performed By: #### A MM #### [facility] [place] [facility] [address] [place] [address] Dr. Ibis Jimenez LYMPH # 2.1 103/ul Normal 1.2-3.8 [facility] [place] Comment on above: Performed By: #### A MM #### [facility] [place] [facility] [address] [place] [address] Dr. Ibis Jimenez Lymphocytes/100 WBC (Bld) 27.3 % Normal 20.5-60.0 [facility] [place] Comment on above: Performed By: #### A MM #### [facility] [place] [facility] [address] [place] [address] Dr. Ibis Jimenez MANUAL DIFF REQ NO Normal [facility] Comment on above: Performed By: #### A MM #### [facility] [place] [facility] [address] [place] [address] Dr. Ibis Jimenez MCH (RBC) [Entitic mass] 29.0 pg Normal 26.7-34.0 [facility] [place] Comment on above: Performed By: #### A MM #### [facility] [place] [facility] [address] [place] [address] Dr. Ibis Jimenez MCHC (RBC) [Mass/Vol] 34.2 g/dL Normal 29.9-35.2 [facility] [place] Comment on above: Performed By: #### A MM #### [facility] [place] [facility] [address] [place] [address] Dr. Ibis Jimenez MCV (RBC) [Entitic vol] 84.8 fL Normal 81.0-99.0 [facility] [place] Comment on above: Performed By: #### A MM #### [facility] [place] [facility] [address] [place] [address] Dr. Ibis Jimenez MONO # 0.7 103/ul Normal 0.3-0.8 [facility] [place] Comment on above: Performed By: #### A MM #### [facility] [place] [facility] [address] [place] [address] Dr. Ibis Jimenez Monocytes/100 WBC (Bld) 8.7 % Normal 1.7-12.0 [facility] [place] Comment on above: Performed By: #### A MM #### [facility] [place] [facility] [address] [place] [address] Dr. Ibis Jimenez NEUT # 4.7 103/ul Normal 1.4-6.5 [facility] Comment on above: Performed By: #### A MM #### [facility] [place] [facility] [address] [place] [address] Dr. Ibis Jimenez Neutrophils/100 WBC (Bld) 60.5 % Normal 43.0-75.0 [facility] Comment on above: Performed By: #### A MM #### [facility] [place] [facility] [address] [place] [address] Dr. Ibis Jimenez Platelet mean volume (Bld) [Entitic vol] 9.6 fL Normal 9.5-13.5 [facility] Comment on above: Performed By: #### A MM #### [facility] [place] [facility] [address] [place] [address] Dr. Ibis Jimenez PLT 212 103/ul Normal 150-450 [facility] [place] Comment on above: Performed By: #### A MM #### [facility] [place] [facility] [address] [place] [address] Dr. Ibis Jimenez RBC 4.21 106/ul Normal 4.20-5.40 [facility] [place] Comment on above: Performed By: #### A MM #### [facility] [place] [facility] [address] [place] [address] Dr. Ibis Jimenez WBC 7.7 103/ul Normal 4.0-11.0 [facility] Comment on above: Performed By: #### A MM #### [facility] [place] [facility] [address] [place] [address] ABD/PELV W CONon [...] TONY DAHL Date: 2022-01-14 20:01 Normal [facility] [place] ER URINE PROFILEon 2 Bilirubin Ql (U) Negative Normal NEGATIVE [facility] Comment on above: Performed By: #### A CET SALYC #### [facility] [place] [facility] [address] [place] [address] Dr. Ibis Jimenez Clarity (U) CLEAR Normal CLEAR [facility] Comment on above: Performed By: #### A CET SALYC #### [facility] [place] [facility] [address] [place] [address] Dr. Ibis Jimenez Color (U) LT. YELLOW Normal YELLOW [facility] Comment on above: Performed By: #### A CET SALYC #### [facility] [place] [facility] [address] [place] [address] Dr. Ibis RODRIGUEZ A micrscopic examination will be performed if indicated. Normal [facility] [place] Comment on above: Performed By: #### A CET, SALYC #### [facility] [place] [facility] [address] [place] [address] Dr. Ibis Jimenez Glucose Ql (U) Negative Normal NEGATIVE [facility] Comment on above: Performed By: #### A CET, SALYC #### [facility] [place] [facility] [address] [place] [address] Dr. Ibis Jimenez Hemoglobin Ql (U) Negative Normal NEGATIVE [facility] Comment on above: Performed By: #### A CET, SALYC #### [facility] [place] [facility] [address] [place] [address] Dr. Ibis Jimenez Ketones Ql (U) Negative Normal NEGATIVE [facility] Comment on above: Performed By: #### A CET, SALYC #### [facility] [place] [facility] [address] [place] [address] Dr. Ibis Jimenez LEUKOCYTES TRACE Abnormal NEGATIVE [facility] Comment on above: Performed By: #### A CET, SALYC #### [facility] [place] [facility] [address] [place] [address] Dr. Ibis Jimenez Nitrite Ql (U) Negative Normal NEGATIVE [facility] Comment on above: Performed By: #### A CET, SALYC #### [facility] [place] [facility] [address] [place] [address] Dr. Ibis Jimenez pH (U) 5.5 [pH] Normal 5-9 [facility] Comment on above: Performed By: #### A CET, SALYC #### [facility] [place] [facility] [address] [place] [address] Dr. Ibis Jimenez SPEC GRAVITY 1.025 Normal 1.005-<=1.[address] [place] [address] Comment on above: Performed By: #### A CET, SALYC #### [facility] [place] [facility] [address] [place] [address] Dr. Ibis Jimenez UA PROTEIN Negative Normal NEGATIVE/ TRACE [facility] [place] Comment on above: Performed By: #### A CET, SALYC #### [facility] [place] [facility] [address] [place] [address] Dr. Ibis Jimenez UR MICRO IND INDICATED Normal [facility] [place] Comment on above: Performed By: #### A CET, SALYC #### [facility] [place] [facility] [address] [place] [address] Dr. Ibis Jimenez Urobilinogen Qn (U) 0.2 {Dinorah'U}/dL Normal 0.2 - 1. 0 [facility] Comment on above: Performed By: #### A RYAN, SALYC #### [facility] [place] [facility] [address] [place] [address] Dr. Ibis Jimenez URon 01-14-2022 , QUAL Negative Normal NEGATIVE [facility] Comment on above: Performed By: #### A RYAN, SALYC #### [facility] [place] [facility] [address] [place] [address] Dr. Ibis Jimenez PROF CHEM 8 (BAS METB)on Anion gap [Moles/Vol] 9.9 mmol/L Normal [facility] Comment on above: Performed By: #### B MP #### [facility] [place] [facility] [address] [place] [address] Dr. Ibis Jimenez Calcium [Mass/Vol] 8.6 mg/dL Normal 8.5-10.1 [facility] Comment on above: Performed By: #### B MP #### [facility] [place] [facility] [address] [place] [address] Dr. Ibis Jimenez Chloride [Moles/Vol] 105 mmol/L Normal 98-107 [facility] [place] Comment on above: Performed By: #### B MP #### [facility] [place] [facility] [address] [place] [address] Dr. Ibis Jimenez CO2 [Moles/Vol] 27.5 mmol/L Normal 21.0-32.0 [facility] Comment on above: Performed By: #### B MP #### [facility] [place] [facility] [address] [place] [address] Dr. Ibis Jimenez Creatinine [Mass/Vol] 0.70 mg/dL Normal 0.55-1.02 [facility] Comment on above: Performed By: #### B MP #### [facility] [place] [facility] [address] [place] [address] Dr. Ibis Jimenez EGFR-AF [place] >60 Normal >=60 [facility] Comment on above: Performed By: #### B MP #### [facility] [place] [facility] [address] [place] [address] Dr. Ibis Jimenez EGFR-NON AF [place] >60 Normal >=60 [facility] Comment on above: Performed By: #### B MP #### [facility] [place] [facility] [address] [place] [address] Dr. Ibis Jimenez Glucose [Mass/Vol] 83 mg/dL Normal 74-106 [facility] Comment on above: Performed By: #### B MP #### [facility] [place] [facility] [address] [place] [address] Dr. Ibis Jimenez Potassium [Moles/Vol] 4.4 mmol/L Normal 3.5-5.1 [facility] Comment on above: Performed By: #### B MP #### [facility] [place] [facility] [address] [place] [address] Dr. Ibis Jimenez Sodium [Moles/Vol] 138 mmol/L Normal 136-145 [facility] Comment on above: Performed By: #### B MP #### [facility] [place] [facility] [address] [place] [address] Dr. Ibis Jimenez Urea nitrogen [Mass/Vol] 13.0 mg/dL Normal 7.0-18.0 [facility] Comment on above: Performed By: #### B MP #### [facility] [place] [facility] [address] [place] [address] Dr. Ibis Jimenez Urea nitrogen/Creatinine [Mass ratio] 18.6 mg/mg Normal [facility] Comment on above: Performed By: #### B MP #### [facility] [place] [facility] [address] [place] [address] Dr. Ibis Jimenez URINE MICROSCOPIC ONLYon BACTERIA NONE SEEN Normal NONE SEEN [facility] [place] Comment on above: Performed By: #### A CET SALYC #### [facility] [place] [facility] [address] [place] [address] Dr. Ibis Jimenez Bacteria identified Cx Nom (U) NOT INDICATED Normal [facility] Comment on above: Performed By: #### A CET, SALYC #### [facility] [place] [facility] [address] [place] [address] Dr. Ibis Jimenez CAST NONE SEEN Normal NONE SEEN [facility] [place] Comment on above: Performed By: #### A CET, SALYC #### [facility] [place] [facility] [address] [place] [address] Dr. Ibis Jimenez Crystals LM Nom (Urine sed) NONE SEEN Normal NONE SEEN [facility] [place] Comment on above: Performed By: #### A CET, SALYC #### [facility] [place] [facility] [address] [place] [address] Dr. Ibis Jimenez Epithelial cells LM Ql (Urine sed) FEW Abnormal NONE SEEN /RARE [facility] [place] Comment on above: Performed By: #### A CET, SALYC #### [facility] [place] [facility] [address] [place] [address] Dr. Ibis Jimenez MUCOUS NONE SEEN Normal NONE SEEN [facility] [place] Comment on above: Performed By: #### A CET, SALYC #### [facility] [place] [facility] [address] [place] [address] Dr. Ibis Jimenez RBC NONE SEEN Abnormal 0-2 [facility] [place] Comment on above: Performed By: #### A CET, SALYC #### [facility] [place] [facility] [address] [place] [address] Dr. Ibis Jimenez WBC NONE SEEN Normal NONE SEEN [facility] [place] Comment on above: Performed By: #### A CET, SALYC #### [facility] [place] [facility] [address] [place] [address] Dr. Ibis Jimenez CBC AUTO DIFFon 01-07-2022 BASO # 0.0 103/ul Normal 0.0-0.1 [facility] Comment on above: Performed By: #### A CET, SALYC #### [facility] [place] [facility] [address] [place] [address] Dr. Ibis Jimenez Basophils/100 WBC (Bld) 0.2 % Normal 0.2-2.0 [facility] [place] Comment on above: Performed By: #### A CET, SALYC #### [facility] [place] [facility] [address] [place] [address] Dr. Ibis Jimenez EO # 0.0 103/ul Normal 0.0-0.7 [facility] Comment on above: Performed By: #### A CET, SALYC #### [facility] [place] [facility] [address] [place] [address] Dr. Ibis Jimenez Eosinophils/100 WBC (Bld) 0.4 % Critically low 0.9-7.0 [facility] Comment on above: Performed By: #### A CET, SALYC #### [facility] [place] [facility] [address] [place] [address] Dr. Ibis Jimenez Erythrocyte distribution width (RBC) [Ratio] 13.2 % Normal 11.0-15.0 [facility] Comment on above: Performed By: #### A CET, SALYC #### [facility] [facility] [address] [place] [address] Dr. Ibis Jimenez Hematocrit (Bld) [Volume fraction] 39.7 % Normal 36.0-48.0 [facility] Comment on above: Performed By: #### A CET, SALYC #### [facility] [address] [place] [address] Dr. Ibis Jimenez Hemoglobin (Bld) [Mass/Vol] 13.4 g/dL Normal 12.0-16.0 [facility] Comment on above: Performed By: #### A CET, SALYC #### [facility] [address] [place] [address] Dr. Ibis Jimenez IG # 0.06 10e3/ul Critically high 0.00-0.03 [facility] Comment on above: Performed By: #### A CET, SALYC #### [facility] [address] [place] [address] Dr. Ibis Jimenez IG % 0.5 % Normal 0.0-0.5 [facility] Comment on above: Performed By: #### A CET, SALYC #### [facility] [address] [place] [address] Dr. Ibis Jimenez LYMPH # 2.6 103/ul Normal 1.2-3.8 [facility] Comment on above: Performed By: #### A CET, SALYC #### [facility] [address] [place] [address] Dr. Ibis Jimenez Lymphocytes/100 WBC (Bld) 23.8 % Normal 20.5-60.0 [facility] Comment on above: Performed By: #### A CET, SALYC #### [facility] [address] [place] [address] Dr. Ibis Jimenez MANUAL DIFF REQ NO Normal [facility] Comment on above: Performed By: #### A CET, SALYC #### [facility] [address] [place] [address] Dr. Ibis Jimenez MCH (RBC) [Entitic mass] 28.8 pg Normal 26.7-34.0 [facility] Comment on above: Performed By: #### A CET, SALYC #### [facility] [address] [place] [address] Dr. Ibis Jimenez MCHC (RBC) [Mass/Vol] 33.8 g/dL Normal 29.9-35.2 [facility] Comment on above: Performed By: #### A CET, SALYC #### [facility] [address] [place] [address] Dr. Ibis Jimenez MCV (RBC) [Entitic vol] 85.2 fL Normal 81.0-99.0 [facility] Comment on above: Performed By: #### A CET, SALYC #### [facility] [address] [place] [address] Dr. Ibis Jimenez MONO # 0.8 103/ul Normal 0.3-0.8 [facility] Comment on above: Performed By: #### A CET, SALYC #### [facility] [address] [place] [address] Dr. Ibis Jimenez Monocytes/100 WBC (Bld) 7.7 % Normal 1.7-12.0 [facility] Comment on above: Performed By: #### A CET, SALYC #### [facility] [address] [place] [address] Dr. Ibis Jimenez NEUT # 7.4 103/ul Critically high 1.4-6.5 [facility] Comment on above: Performed By: #### A CET, SALYC #### [facility] [address] [place] [address] Dr. Ibis Jimenez Neutrophils/100 WBC (Bld) 67.4 % Normal 43.0-75.0 [facility] Comment on above: Performed By: #### A CET, SALYC #### [facility] [address] [place] [address] Dr. Ibis Jimenez Platelet mean volume (Bld) [Entitic vol] 9.8 fL Normal 9.5-13.5 [facility] Comment on above: Performed By: #### A CET, SALYC #### [facility] [address] [place] [address] Dr. Ibis Jimenez PLT 261 103/ul Normal 150-450 [facility] Comment on above: Performed By: #### A CET, SALYC #### [facility] [address] [place] [address] Dr. Ibis Jimenez RBC 4.66 106/ul Normal 4.20-5.40 [facility] Comment on above: Performed By: #### A CET, SALYC #### [facility] [address] [place] [address] Dr. bIis Jimenez WBC 10.9 103/ul Normal 4.0-11.0 [facility] Comment on above: Performed By: #### A CET, SALYC #### [facility] [address] [place] [address] Dr. Ibis Jimenez PROF CHEM 8 (BAS METB)on Anion gap [Moles/Vol] 14.1 mmol/L Normal [facility] Comment on above: Performed By: #### B MP #### [facility] [address] [place] [address] Dr. Ibis Jimenez Calcium [Mass/Vol] 8.5 mg/dL Normal 8.5-10.1 [facility] Comment on above: Performed By: #### B MP #### [facility] [address] [place] [address] Dr. Ibis Jimenez Chloride [Moles/Vol] 103 mmol/L Normal 98-107 [facility] Comment on above: Performed By: #### B MP #### [facility] [address] [place] [address] Dr. Ibis Jimenez CO2 [Moles/Vol] 22.5 mmol/L Normal 21.0-32.0 [facility] Comment on above: Performed By: #### B MP #### [facility] [address] [address] [address] Ibis Jimenez Creatinine [Mass/Vol] 0.64 mg/dL Normal 0.55-1.02 [facility] Comment on above: Performed By: #### B MP #### [facility] [address] [address] [address] Ibis Jimenez EGFR-AF [place] CITIZ[place] >60 Normal >=60 [facility] Comment on above: Performed By: #### B MP #### [facility] [address] [address] [address] Ibis Jimenez EGFR-NON AF [place] CITIZ[place] >60 Normal >=60 [facility] Comment on above: Performed By: #### B MP #### [facility] [address] [address] [address] Ibis Jimenez Glucose [Mass/Vol] 141 mg/dL Critically high 74-106 [facility] Comment on above: Performed By: #### B MP #### [facility] [address] [address] [address] Ibis Jimenez Potassium [Moles/Vol] 3.6 mmol/L Normal 3.5-5.1 [facility] Comment on above: Performed By: #### B MP #### [facility] [address] [address] [address] Ibis Jimenez Sodium [Moles/Vol] 136 mmol/L Normal 136-145 [facility] Comment on above: Performed By: #### B MP #### [facility] [address] [address] [address] Ibis Jimenez Urea nitrogen [Mass/Vol] 16.0 mg/dL Normal 7.0-18.0 [facility] Comment on above: Performed By: #### B MP #### [facility] [address] [place] [address] Dr. Ibis Jimenez Urea nitrogen/Creatinine [Mass ratio] 25.0 mg/mg Normal [facility] Comment on above: Performed By: #### B MP #### [facility] [address] [place] [address] Dr. Ibis Jimenez CBC AUTO DIFFon 11-04-2021 BASO # 0.0 103/ul Normal 0.0-0.1 [facility] Comment on above: Performed By: #### A CET, SALYC #### [facility] [address] [place] [address] Dr. Ibis Jimenez Basophils/100 WBC (Bld) 0.4 % Normal 0.2-2.0 [facility] Comment on above: Performed By: #### A CET, SALYC #### [facility] [address] [place] [address] Dr. Ibis Jimenez EO # 0.2 103/ul Normal 0.0-0.7 [facility] Comment on above: Performed By: #### A CET, SALYC #### [facility] [address] [place] [address] Dr. Ibis Jimenez Eosinophils/100 WBC (Bld) 4.1 % Normal 0.9-7.0 [facility] Comment on above: Performed By: #### A CET, SALYC #### [facility] [address] [place] [address] Dr. Ibis Jimenez Erythrocyte distribution width (RBC) [Ratio] 13.2 % Normal 11.0-15.0 [facility] Comment on above: Performed By: #### A CET, SALYC #### [facility] [address] [place] [address] Dr. Ibis Jimenez Hematocrit (Bld) [Volume fraction] 34.3 % Critically low 36.0-48.0 [facility] Comment on above: Performed By: #### A CET, SALYC #### [facility] [address] [place] [address] Dr. Ibis Jimenez Hemoglobin (Bld) [Mass/Vol] 11.5 g/dL Critically low 12.0-16.0 [facility] Comment on above: Performed By: #### A CET, SALYC #### [facility] [address] [place] [address] Dr. Ibis Jimenez IG # 0.01 10e3/ul Normal 0.00-0.03 [facility] Comment on above: Performed By: #### A CET, SALYC #### [facility] [address] [place] [address] Dr. Ibis Jimenez IG % 0.2 % Normal 0.0-0.5 [facility] Comment on above: Performed By: #### A CET, SALYC #### [facility] [address] [address] [address] Ibis Jimenez LYMPH # 1.5 103/ul Normal 1.2-3.8 [facility] Comment on above: Performed By: #### A CET, SALYC #### [facility] [address] [place] [address] Dr. Ibis Jimenez Lymphocytes/100 WBC (Bld) 26.4 % Normal 20.5-60.0 [facility] Comment on above: Performed By: #### A CET, SALYC #### [facility] [address] [place] [address] Dr. Ibis Jimenez MANUAL DIFF REQ NO Normal [facility] Comment on above: Performed By: #### A CET, SALYC #### [facility] [address] [place] [address] Dr. Ibis Jimenez MCH (RBC) [Entitic mass] 28.8 pg Normal 26.7-34.0 [facility] Comment on above: Performed By: #### A CET, SALYC #### [facility] [address] [place] [address] Dr. Ibis Jimenez MCHC (RBC) [Mass/Vol] 33.5 g/dL Normal 29.9-35.2 [facility] Comment on above: Performed By: #### A CET, SALYC #### [facility] [address] [place] [address] Dr. Ibis Jimenez MCV (RBC) [Entitic vol] 86.0 fL Normal 81.0-99.0 [facility] Comment on above: Performed By: #### A CET, SALYC #### [facility] [address] [address] [address] Ibis Jimenez MONO # 0.5 103/ul Normal 0.3-0.8 [facility] Comment on above: Performed By: #### A CET, SALYC #### [facility] [address] [place] [address] Dr. Ibis Jimenez Monocytes/100 WBC (Bld) 8.2 % Normal 1.7-12.0 [facility] Comment on above: Performed By: #### A CET, SALYC #### [facility] [address] [place] [address] Dr. Ibis Jimenez NEUT # 3.4 103/ul Normal 1.4-6.5 [facility] Comment on above: Performed By: #### A CET, SALYC #### [facility] [address] [place] [address] Dr. Ibis Jimenez Neutrophils/100 WBC (Bld) 60.7 % Normal 43.0-75.0 [facility] Comment on above: Performed By: #### A CET, SALYC #### [facility] [address] [place] [address] Dr. Ibis Jimenez Platelet mean volume (Bld) [Entitic vol] 9.9 fL Normal 9.5-13.5 [facility] Comment on above: Performed By: #### A CET, SALYC #### [facility] [address] [place] [address] Dr. Ibis Jimenez PLT 222 103/ul Normal 150-450 [facility] Comment on above: Performed By: #### A CET, SALYC #### [facility] [address] [place] [address] Dr. Ibis Jimenez RBC 3.99 106/ul Critically low 4.20-5.40 [facility] Comment on above: Performed By: #### A CET, SALYC #### [facility] [address] [place] [address] Dr. Ibis Jimenez WBC 5.6 103/ul Normal 4.0-11.0 [facility] Comment on above: Performed By: #### A CET, SALYC #### [facility] [address] [address] [address] Ibis Jimenez PROF CHEM 8 (BAS METB)on Anion gap [Moles/Vol] 10.5 mmol/L Normal [facility] Comment on above: Performed By: #### B MP #### [facility] [address] [address] [address] Ibis Jimenez Calcium [Mass/Vol] 8.8 mg/dL Normal 8.5-10.1 [facility] Comment on above: Performed By: #### B MP #### [facility] [address] [address] [address] Ibis Jimenez Chloride [Moles/Vol] 105 mmol/L Normal 98-107 [facility] Comment on above: Performed By: #### B MP #### [facility] [address] [place] [address] Dr. Ibis Jimenez CO2 [Moles/Vol] 24.9 mmol/L Normal 21.0-32.0 [facility] Comment on above: Performed By: #### B MP #### [facility] [address] [place] [address] Dr. Ibis Jimenez Creatinine [Mass/Vol] 0.71 mg/dL Normal 0.55-1.02 [facility] Comment on above: Performed By: #### B MP #### [facility] [address] [place] [address] Dr. Ibis Jimenez EGFR-AF [place]IZ[place] >60 Normal >=60 [facility] Comment on above: Performed By: #### B MP #### [facility] [address] [place] [address] Dr. Ibis Jimenez EGFR-NON AF [place] CITIZ[place] >60 Normal >=60 [facility] Comment on above: Performed By: #### B MP #### [facility] [address] [place] [address] Dr. Ibis Jimenez Glucose [Mass/Vol] 103 mg/dL Normal 74-106 [facility] Comment on above: Performed By: #### B MP #### [facility] [address] [place] [address] Dr. Ibis Jimenez Potassium [Moles/Vol] 3.4 mmol/L Critically low 3.5-5.1 [facility] Comment on above: Performed By: #### B MP #### [facility] [address] [address] [address] Ibis Jimenez Sodium [Moles/Vol] 137 mmol/L Normal 136-145 [facility] Comment on above: Performed By: #### B MP #### [facility] [address] [address] [address] Ibis Jimenez Urea nitrogen [Mass/Vol] 17.0 mg/dL Normal 7.0-18.0 [facility] Comment on above: Performed By: #### B MP #### [facility] [address] [place] [address] Dr. Ibis Jimenez Urea nitrogen/Creatinine [Mass ratio] 23.9 mg/mg Normal [facility] Comment on above: Performed By: #### B MP #### [facility] [address] [place] [address] Dr. Ibis Jimenez Basic Metab w/rfx MGon 10-20 (cont.) [facility] Comment on above: Result Comment: Aver age GFR for 20-29 years old: 116 mL/min/1.73sq m Chronic Kidney Disease: <60 mL/min/1.73sq m Kidney failure: <15 mL/min/1.73sq m eGFR calculated using average adult body mass. Additional eGFR calculator available at: http://www.[employer] Work Study/multiple_crcl_2011.htm Performed By: #### B MPX #### [facility] [place] [address] Motor Vehicle Dispatcher: Tavon Nicole MD Anion gap [Moles/Vol] 10 mmol/L Normal 9-17 [facility] Comment on above: Performed By: #### B MPX #### [facility] [facility] [address] [place] [address] Motor Vehicle Dispatcher: Tavon Nicole MD Calcium [Mass/Vol] 7.8 mg/dL Low 8.6-10.4 [facility] Comment on above: Performed By: #### B MPX #### [facility] [address] [place] [address] [employer] Vehicle Dispatcher: Tavon Nicole MD Chloride [Moles/Vol] 109 mmol/L High 98-107 [facility] Comment on above: Performed By: #### B MPX #### [facility] [address] [place] [address] [employer] Vehicle Dispatcher: Tavon Nicole MD CO2 [Moles/Vol] 20 mmol/L Normal 20-31 [facility] Comment on above: Performed By: #### B MPX #### [address] [address] Motor Vehicle Dispatcher: Tavon Nicole MD Creatinine [Mass/Vol] 0.45 mg/dL Low 0.50-0.90 [facility] Comment on above: Performed By: #### B MPX #### [address] [address] Motor Vehicle Dispatcher: Tavon Nicole MD GFR, Amer >60 Normal >60 [facility] Comment on above: Performed By: #### B MPX #### [address] [address] Motor Vehicle Dispatcher: Tavon Nicole MD GFR,non Amer >60 Normal >60 [facility] Comment on above: Performed By: #### B MPX #### [address] [address] Motor Vehicle Dispatcher: Tavon Nicole MD Glucose [Mass/Vol] 84 mg/dL Normal 70-99 [facility] Comment on above: Performed By: #### B MPX #### [address] [address] Motor Vehicle Dispatcher: Tavon Nicole MD Potassium [Moles/Vol] 4.1 mmol/L Normal 3.7-5.3 [facility] Comment on above: Result Comment: SPEC IMEN SLIGHTLY HEMOLYZED, RESULTS MAY BE ADVERSELY AFFECTED. Performed By: #### B MPX #### [facility] [address] [place], [place] [id number] Motor Vehicle Dispatcher: Tavon Nicole MD Sodium [Moles/Vol] 139 mmol/L Normal 135-144 [facility] Comment on above: Performed By: #### B MPX #### [facility] [address] [place], [place] [id number] Motor Vehicle Dispatcher: Tavon Nicole MD Urea nitrogen [Mass/Vol] 8 mg/dL Normal 6-20 [facility] Comment on above: Performed By: #### B MPX #### [facility] [address] [place] [id number] Motor Vehicle Dispatcher: Tavon Nicole MD Basic Metabolic Panel w/ Ref rossi to MGon 10-20-2021 Anion gap [Moles/Vol] 10 mmol/L 9 - 17 mmol/L [facility] Calcium [Mass/Vol] 7.8 mg/dL Low 8.6 - 10. 4 mg/dL [facility] Chloride [Moles/Vol] 109 mmol/L High 98 - 10 7 mmol/L [facility] CO2 [Moles/Vol] 20 mmol/L 20 - 31 mmol/L [facility] Creatinine [Mass/Vol] 0.45 mg/dL Low 0.5 - 0.9 mg/dL [facility] GFR >60 60 - PI NF mL/min [facility] GFR Non- >60 60 - PINF mL/min [facility] GFR/1.73 sq M.predicted MDRD (S/P/Bld) [Vol rate/Area] [facility] Comment on above: Average GFR for 20-2 9 years old: 116 mL/min/1.73sq m Chronic Kidney Disease: <60 mL/min/1.73sq m Kidney failure: <15 mL/min/1.73sq m eGFR calculated using average adult body mass. Additional eGFR calculator available at: http://www.[employer]/multiple_crcl_2012.htm Glucose [Mass/Vol] 84 mg/dL 70 - 99 mg/dL [facility] Interpretation and review of laboratory results Abnormal [facility] Potassium [Moles/Vol] 4.1 mmol/L 3.7 - 5.3 mmol/L [facility] Comment on above: SPECIMEN SLIGHTLY HE MOLYZED, RESULTS MAY BE ADVERSELY AFFECTED. Sodium [Moles/Vol] 139 mmol/L 135 - 144 mmol/L [facility] Urea nitrogen (BldV) [Mass/Vol] 8 mg/dL 6 - 20 mg/dL [facility] CBC with Auto Differentialon 10-20-2021 Absolute Eos # 0.15 [facility] Absolute Immature Granulocyte [facility] Absolute Lymph # 1.48 [facility] Absolute [place] # 0.28 [facility] Basophils (Bld) [#/Vol] 0.03 10*3/uL [facility] Basophils/100 WBC (Bld) 1 % 0 - 2 % [facility] Eosinophils/100 WBC (Bld) 3 % 1 - 4 % [facility] Hematocrit (Bld) [Volume fraction] 35.5 % Low 36.3 - 47.1 % [facility] Hemoglobin (Bld) [Mass/Vol] 11.3 g/dL Low 11.9 - 15.1 g/dL [facility] Immature granulocytes/100 WBC (Bld) 0 % 0 [facility] Interpretation and review of laboratory results Abnormal [facility] Lymphocytes/100 WBC (Bld) 34 % 24 - 43 % [facility] MCH (RBC) [Entitic mass] 27.9 pg 25.2 - 33.5 pg [facility] MCHC (RBC) [Mass/Vol] 31.8 g/dL 28.4 - 34.8 g/dL [facility] MCV (RBC) [Entitic vol] 87.7 fL 82.6 - 102.9 fL [facility] Monocytes/100 WBC (Bld) 6 % 3 - 12 % [facility] NRBC Automated 0.0 0.0 per 100 WBC [facility] Platelet distribution width (Bld) [Ratio] 12.9 % 11.8 - 14.4 % [facility] Platelets (Bld) [#/Vol] See Reflexed IPF Result [facility] RBC (Bld) [#/Vol] 4.05 10*6/uL 3.95 - 5.1 1 m/uL [facility] Segmented neutrophils/100 WBC (Bld) 55 % 36 - 65 % [facility] Segs Absolute 2.42 [facility] WBC (Bld) [#/Vol] 4.4 10*3/uL [facility] CBC with Diffon 10-20-2021 Abs. Basophil 0.03 k/uL Normal 0.00-0.20 [facility] Comment on above: Performed By: #### C DP, IPF #### [facility] [employer] [address] [place] [address] Motor Vehicle Dispatcher: Tavon Nicole MD Abs.Imm.Granulocyte <0.03 Normal 0.00-0.30 [facility] Comment on above: Performed By: #### C DP, IPF #### [facility] [employer] [address] [place] [address] Motor Vehicle Dispatcher: Tavon Nicole MD Abs.Neutrophil (Seg) 2.42 k/uL Normal 1.50-8.10 [facility] Comment on above: Performed By: #### C DP, IPF #### [facility] [employer] [address] [place] [address] Motor Vehicle Dispatcher: Tavon Nicole MD Basophils/100 WBC (Bld) 1 % Normal 0-2 [facility] Comment on above: Performed By: #### C DP, IPF #### [facility] [employer] [address] [place] [address] Motor Vehicle Dispatcher: Tavon Nicole MD Eosinophils (Bld) [#/Vol] 0.15 10*3/uL Normal 0.00-0.44 [facility] Comment on above: Performed By: #### C DP, IPF #### [address] [address] Motor Vehicle Dispatcher: Tavon Nicole MD Eosinophils/100 WBC (Bld) 3 % Normal 1-4 [facility] Comment on above: Performed By: #### C DP, IPF #### [address] [address] Motor Vehicle Dispatcher: Tavon Nicole MD Immature granulocytes/100 WBC (Bld) 0 % Normal 0 [facility] Comment on above: Performed By: #### C DP, IPF #### [address] [address] Motor Vehicle Dispatcher: Tavon Nicole MD Lymphocytes (Bld) [#/Vol] 1.48 10*3/uL Normal 1.10-3.70 [facility] Comment on above: Performed By: #### C DP, IPF #### [address] [address] Motor Vehicle Dispatcher: Tavon Nicole MD Lymphocytes/100 WBC (Bld) 34 % Normal 24-43 [facility] Comment on above: Performed By: #### C DP, IPF #### [address] [address] Motor Vehicle Dispatcher: Tavon Nicole MD Monocytes (Bld) [#/Vol] 0.28 10*3/uL Normal 0.10-1.20 [facility] Comment on above: Performed By: #### C DP, IPF #### [address] [address] Motor Vehicle Dispatcher: Tavon Nicole MD Monocytes/100 WBC (Bld) 6 % Normal 3-12 [facility] Comment on above: Performed By: #### C DP, IPF #### [address] [address] Motor Vehicle Dispatcher: Tavon Nicole MD Neutrophil (Seg) 55 % Normal 36-65 [facility] Comment on above: Performed By: #### C DP, IPF #### [address] [address] Motor Vehicle Dispatcher: Tavon Nicole MD Erythrocyte distribution width (RBC) [Ratio] 12.9 % Normal 11.8-14.4 [facility] Comment on above: Performed By: #### C DP, IPF #### [address] [address] Motor Vehicle Dispatcher: Tavon Nicole MD Hematocrit (Bld) [Volume fraction] 35.5 % Low 36.3-47.1 [facility] Comment on above: Performed By: #### C DP, IPF #### [address] [address] Motor Vehicle Dispatcher: Tavon Nicole MD Hemoglobin (Bld) [Mass/Vol] 11.3 g/dL Low 11.9-15.1 [facility] Comment on above: Performed By: #### C DP, IPF #### [address] [address] Motor Vehicle Dispatcher: Tavon Nicole MD MCH (RBC) [Entitic mass] 27.9 pg Normal 25.2-33.5 [facility] Comment on above: Performed By: #### C DP, IPF #### [address] [address] Motor Vehicle Dispatcher: Tavon Nicole MD MCHC (RBC) [Mass/Vol] 31.8 g/dL Normal 28.4-34.8 [facility] Comment on above: Performed By: #### C DP, IPF #### [address] [address] Motor Vehicle Dispatcher: Tavon Nicole MD MCV (RBC) [Entitic vol] 87.7 fL Normal 82.6-102.9 [facility] Comment on above: Performed By: #### C DP, IPF #### [address] [address] Motor Vehicle Dispatcher: Tavon Nicole MD NRBC Automated 0.0 per 100 WBC Normal 0.0 [facility] Comment on above: Performed By: #### C DP, IPF #### [address] [address] Motor Vehicle Dispatcher: Tavon Nicole MD Platelet Count See Reflexed IPF Result Normal 138-453 [facility] Comment on above: Performed By: #### C DP, IPF #### [address] [address] Motor Vehicle Dispatcher: Tavon Nicole MD RBC (Bld) [#/Vol] 4.05 10*6/uL Normal 3.95-5.11 [facility] Comment on above: Performed By: #### C DP, IPF #### [address] [address] Motor Vehicle Dispatcher: Tavon Nicole MD WBC (Bld) [#/Vol] 4.4 10*3/uL Normal 3.5-11.3 [facility] Comment on above: Performed By: #### C DP, IPF #### [address] [address] Motor Vehicle Dispatcher: Tavon Nicole MD EEG video monitoringon 10-20 Raiza Land MD 10/20/2021 12:11 PM Referring physician: Chris Blanchard APRN Date:10/20/2021 Start Time:10/19/2021 @1258 End Time: 10/20/2021 @ 1200 Indication Patient with recurrent events Introduction This continuous video-EEG was acquired using a [employer] workstation at 256 samples/s. Electrodes were placed [...] Board Certified. Neurology Board Certified. Electronically Signed [facility] Work Phone: EEG video monitoringOrdered By: Raiza Land on 10-20-2021 [facility] Work Phone: Immature Platelet Fractionon 10-20-2021 Platelet, Fluorescence Platelet clumps present, count appears adequate. [facility] PLT, Immature Fract.on 10-20 Platelet, Fluoresc. Platelet clumps present, count appears adequate. Normal 138-453 [facility] Comment on above: Performed By: #### C DP, IPF #### [employer] [address] [place] [address] Motor Vehicle Dispatcher: Tavon Nicole MD PROLACTINon 10-20-2021 Prolactin 41.7 ng/mL Critically high 4.8-23.3 [facility] Comment on above: Performed By: #### C VDTB #### [facility] [address] [place], [place] [address] Dr. Ibis Jimenez CBCon 10-19-2021 Erythrocyte distribution width (RBC) [Ratio] 12.9 % Normal 11.8-14.4 [facility] Comment on above: Performed By: #### T ROPI, LACTIC, CMPX, CBC #### [address] [address] Motor Vehicle Dispatcher: Tavon Nicole MD Hematocrit (Bld) [Volume fraction] 31.5 % Low 36.3-47.1 [facility] Comment on above: Performed By: #### T ROPI, LACTIC, CMPX, CBC #### [address] [address] Motor Vehicle Dispatcher: Tavon Nicole MD Hemoglobin (Bld) [Mass/Vol] 10.8 g/dL Low 11.9-15.1 [facility] Comment on above: Performed By: #### T ROPI, LACTIC, CMPX, CBC #### [address] [address] Motor Vehicle Dispatcher: Tavon Nicole MD MCH (RBC) [Entitic mass] 29.1 pg Normal 25.2-33.5 [facility] Comment on above: Performed By: #### T ROPI, LACTIC, CMPX, CBC #### [address] [address] Motor Vehicle Dispatcher: Tavon Nicole MD MCHC (RBC) [Mass/Vol] 34.3 g/dL Normal 28.4-34.8 [facility] Comment on above: Performed By: #### T ROPI, LACTIC, CMPX, CBC #### [address] [address] Motor Vehicle Dispatcher: Tavon Nicole MD MCV (RBC) [Entitic vol] 84.9 fL Normal 82.6-102.9 [facility] Comment on above: Performed By: #### T ROPI, LACTIC, CMPX, CBC #### [address] [address] Motor Vehicle Dispatcher: Tavon Nicole MD NRBC Automated 0.0 per 100 WBC Normal 0.0 [facility] Comment on above: Performed By: #### T ROPI, LACTIC, CMPX, CBC #### [address] [address] Motor Vehicle Dispatcher: Tavon Nicole MD Platelet mean volume (Bld) [Entitic vol] 9.8 fL Normal 8.1-13.5 [facility] Comment on above: Performed By: #### T ROPI, LACTIC, CMPX, CBC #### [address] [address] Motor Vehicle Dispatcher: Tavon Nicole MD Platelets (Bld) [#/Vol] 281 10*3/uL Normal 138-453 [facility] Comment on above: Performed By: #### T ROPI, LACTIC, CMPX, CBC #### [address] [address] Motor Vehicle Dispatcher: Tavon Nicole MD RBC (Bld) [#/Vol] 3.71 10*6/uL Low 3.95-5.11 [facility] Comment on above: Performed By: #### T ROPI, LACTIC, CMPX, CBC #### [address] [address] Motor Vehicle Dispatcher: Tavon Nciole MD WBC (Bld) [#/Vol] 5.0 10*3/uL Normal 3.5-11.3 [facility] Comment on above: Performed By: #### T ROPI, LACTIC, CMPX, CBC #### [address] [address] Motor Vehicle Dispatcher: Tavon Nicole MD Hematocrit (Bld) [Volume fraction] 31.5 % Low 36.3 - 47.1 % [facility] Hemoglobin (Bld) [Mass/Vol] 10.8 g/dL Low 11.9 - 15.1 g/dL [facility] Interpretation and review of laboratory results Abnormal [facility] MCH (RBC) [Entitic mass] 29.1 pg 25.2 - 33.5 pg [facility] MCHC (RBC) [Mass/Vol] 34.3 g/dL 28.4 - 34.8 g/dL [facility] MCV (RBC) [Entitic vol] 84.9 fL 82.6 - 102.9 fL [facility] NRBC Automated 0.0 0.0 per 100 WBC [facility] Platelet distribution width (Bld) [Ratio] 12.9 % 11.8 - 14.4 % [facility] Platelet mean volume (Bld) [Entitic vol] 9.8 fL 8.1 - 13.5 fL [facility] Platelets (Bld) [#/Vol] 281 10*3/uL [facility] RBC (Bld) [#/Vol] 3.71 10*6/uL Low 3.95 - 5.1 1 m/uL [facility] WBC (Bld) [#/Vol] 5.0 10*3/uL [facility] CBC AUTO DIFFon 10-19-2021 EO # 0.2 103/ul Normal 0.0-0.7 [facility] Comment on above: Performed By: #### A MM #### [facility] [address] [place] [address] Dr. Ibis Jimenez Eosinophils/100 WBC (Bld) 3.9 % Normal 0.9-7.0 [facility] Comment on above: Performed By: #### A MM #### [facility] [address] [place] [address] Dr. Ibis Jimenez Erythrocyte distribution width (RBC) [Ratio] 13.1 % Normal 11.0-15.0 [facility] Comment on above: Performed By: #### A MM #### [facility] [address] [place] [address] Dr. Ibis Jimenez Hematocrit (Bld) [Volume fraction] 33.4 % Critically low 36.0-48.0 [facility] Comment on above: Performed By: #### A MM #### [facility] [address] [place] [address] Dr. Ibis Jimenez Hemoglobin (Bld) [Mass/Vol] 11.1 g/dL Critically low 12.0-16.0 [facility] Comment on above: Performed By: #### A MM #### [facility] [address] [place] [address] Dr. Ibis Jimenez LYMPH # 1.2 103/ul Normal 1.2-3.8 [facility] Comment on above: Performed By: #### A MM #### [facility] [address] [place] [address] Dr. Ibis Jimenez Lymphocytes/100 WBC (Bld) 25.9 % Normal 20.5-60.0 [facility] Comment on above: Performed By: #### A MM #### [facility] [address] [place] [address] Dr. Ibis Jimenez MCHC (RBC) [Mass/Vol] 33.2 g/dL Normal 29.9-35.2 [facility] Comment on above: Performed By: #### A MM #### [facility] [address] [place] [address] Dr. Ibis Jimenez MCV (RBC) [Entitic vol] 85.9 fL Normal 81.0-99.0 [facility] Comment on above: Performed By: #### A MM #### [facility] [address] [place] [address] Dr. Ibis Jimenez Monocytes/100 WBC (Bld) 7.7 % Normal 1.7-12.0 [facility] Comment on above: Performed By: #### A MM #### [facility] [address] [place] [address] Dr. Ibis Jimenez NEUT # 2.9 103/ul Normal 1.4-6.5 [facility] Comment on above: Performed By: #### A MM #### [facility] [address] [place] [address] Dr. Ibis Jimenez Neutrophils/100 WBC (Bld) 61.5 % Normal 43.0-75.0 [facility] Comment on above: Performed By: #### A MM #### [facility] [address] [place] [address] Dr. Ibis Jimenez PLT 264 103/ul Normal 150-450 [facility] Comment on above: Performed By: #### A MM #### [facility] [address] [place] [address] Dr. Ibis Jimenez RBC 3.89 106/ul Critically low 4.20-5.40 [facility] Comment on above: Performed By: #### A MM #### [facility] [address] [place] [address] Dr. Ibis Jimenez WBC 4.7 103/ul Normal 4.0-11.0 [facility] Comment on above: Performed By: #### A MM #### [facility] [address] [place] [address] Dr. Ibis Jimenez BASO # 0.0 103/ul Normal 0.0-0.1 [facility] Comment on above: Performed By: #### A MM #### [facility] [address] [place] [address] Dr. Ibis Jimenez Performed By: #### C VDTB #### [facility] [address] [place] [address] Dr. Ibis Jimenez Basophils/100 WBC (Bld) 0.6 % Normal 0.2-2.0 [facility] Comment on above: Performed By: #### A MM #### [facility] [address] [place] [address] Dr. Ibis Jimenez Performed By: #### C VDTBH #### [facility] [address] [place] [address] Dr. Ibis Jimenez EO # 0.3 103/ul Normal 0.0-0.7 [facility] Comment on above: Performed By: #### C VDTBH #### [facility] [address] [place] [address] Dr. Ibis Jimenez Eosinophils/100 WBC (Bld) 5.0 % Normal 0.9-7.0 [facility] Comment on above: Performed By: #### C VDTBH #### [facility] [address] [place] [address] Dr. Ibis Jimenez Erythrocyte distribution width (RBC) [Ratio] 12.8 % Normal 11.0-15.0 [facility] Comment on above: Performed By: #### C VDTBH #### [facility] [address] [place] [address] Dr. Ibis Jimenez Hematocrit (Bld) [Volume fraction] 38.0 % Normal 36.0-48.0 [facility] Comment on above: Performed By: #### C VDTBH #### [facility] [address] [place] [address] Dr. Ibis Jimenez Hemoglobin (Bld) [Mass/Vol] 12.7 g/dL Normal 12.0-16.0 [facility] Comment on above: Performed By: #### C VDTBH #### [facility] [address] [place] [address] Dr. Ibis Jimenez IG # 0.02 10e3/ul Normal 0.00-0.03 [facility] Comment on above: Performed By: #### A MM #### [facility] [address] [place] [address] Dr. Ibis Jimenez Performed By: #### C VDTBH #### [facility] [address] [place] [address] Dr. Ibis Jimenez IG % 0.4 % Normal 0.0-0.5 [facility] Comment on above: Performed By: #### A MM #### [facility] [address] [place] [address] Dr. Ibis Jimenez Performed By: #### C VDTBH #### [facility] [address] [place] [address] Dr. Ibis Jimenez LYMPH # 1.7 103/ul Normal 1.2-3.8 [facility] Comment on above: Performed By: #### C VDTBH #### [facility] [address] [place] [address] Dr. Ibis Jimenez Lymphocytes/100 WBC (Bld) 30.7 % Normal 20.5-60.0 [facility] Comment on above: Performed By: #### C VDTBH #### [facility] [address] [place] [address] Dr. Ibis Jimenez MANUAL DIFF REQ NO Normal [facility] Comment on above: Performed By: #### A MM #### [facility] [address] [place] [address] Dr. Ibis Jimenez Performed By: #### C VDTBH #### [facility] [address] [place] [address] Dr. Ibis Jimenez MCH (RBC) [Entitic mass] 28.5 pg Normal 26.7-34.0 [facility] Comment on above: Performed By: #### A MM #### [facility] [address] [place] [address] Dr. Ibis Jimenez Performed By: #### C VDTBH #### [facility] [address] [place] [address] Dr. Ibis Jimenez MCHC (RBC) [Mass/Vol] 33.4 g/dL Normal 29.9-35.2 [facility] Comment on above: Performed By: #### C VDTBH #### [facility] [address] [place] [address] Dr. Ibis Jimenez MCV (RBC) [Entitic vol] 85.2 fL Normal 81.0-99.0 [facility] Comment on above: Performed By: #### C VDTBH #### [facility] [address] [place] [address] Dr. Ibis Jimenez MONO # 0.4 103/ul Normal 0.3-0.8 [facility] Comment on above: Performed By: #### A MM #### [facility] [address] [place] [address] Dr. Ibis Jimenez Performed By: #### C VDTBH #### [facility] [address] [place] [address] Dr. Ibis Jimenez Monocytes/100 WBC (Bld) 8.1 % Normal 1.7-12.0 [facility] Comment on above: Performed By: #### C VDTBH #### [facility] [address] [place] [address] Dr. Ibis Jimenez NEUT # 3.0 103/ul Normal 1.4-6.5 [facility] Comment on above: Performed By: #### C VDTBH #### [facility] [address] [place] [address] Dr. Ibis Jimenez Neutrophils/100 WBC (Bld) 55.2 % Normal 43.0-75.0 [facility] Comment on above: Performed By: #### C VDTBH #### [facility] [address] [place] [address] Dr. Ibis Jimenez Platelet mean volume (Bld) [Entitic vol] 9.5 fL Normal 9.5-13.5 [facility] Comment on above: Performed By: #### A MM #### [facility] [address] [place] [address] Dr. Ibis Jimenez Performed By: #### C VDTBH #### [facility] [address] [place] [address] Dr. Ibis Jimenez PLT 343 103/ul Normal 150-450 [facility] Comment on above: Performed By: #### C VDTBH #### [facility] [address] [place] [address] Dr. Ibis Jimenez RBC 4.46 106/ul Normal 4.20-5.40 [facility] Comment on above: Performed By: #### C VDTBH #### [facility] [address] [place] [address] Dr. Ibis Jimenez WBC 5.4 103/ul Normal 4.0-11.0 [facility] Comment on above: Performed By: #### C VDTBH #### [facility] [address] [place] [address] HEAD WO CONon [...] LOPEZ REYNOLDS Date: 2021-10-19 07:31 Normal [facility] Comp Metabolic Pr/rfx MGon 0 10-19-2021 (cont.) Normal [facility] Comment on above: Result Comment: Aver age GFR for 20-29 years old: 116 mL/min/1.73sq m Chronic Kidney Disease: <60 mL/min/1.73sq m Kidney failure: <15 mL/min/1.73sq m eGFR calculated using average adult body mass. Additional eGFR calculator available at: http://www.[employer] Work Study/multiple_crcl_2012.htm Performed By: #### T ROPI, LACTIC, CMPX, CBC #### [facility] [address] [place] [address] [employer] Vehicle Dispatcher: Tavon Nicole MD Albumin [Mass/Vol] 3.5 g/dL Normal 3.5-5.2 [facility] Comment on above: Performed By: #### T ROPI, LACTIC, CMPX, CBC #### [facility] [address] [place] [address] [employer] Vehicle Dispatcher: Tavon Nicole MD Albumin/Glob Ratio 1.4 Normal 1.0-2.5 [facility] Comment on above: Performed By: #### T ROPI, LACTIC, CMPX, CBC #### [facility] [address] [place] [address] Motor Vehicle Dispatcher: Tavon Nicole MD Alkaline Phos 69 U/L Normal 35-104 [facility] Comment on above: Performed By: #### T ROPI, LACTIC, CMPX, CBC #### [facility] [address] [place] [address] Motor Vehicle Dispatcher: Tavon Nicole MD ALT [Catalytic activity/Vol] 15 U/L Normal 5-33 [facility] Comment on above: Performed By: #### T ROPI, LACTIC, CMPX, CBC #### [facility] [address] [place] [address] Motor Vehicle Dispatcher: Tavon Nicole MD Anion gap [Moles/Vol] 13 mmol/L Normal 9-17 [facility] Comment on above: Performed By: #### T ROPI, LACTIC, CMPX, CBC #### [facility] [address] [place] [address] Motor Vehicle Dispatcher: Tavon Nicole MD AST [Catalytic activity/Vol] 12 U/L Normal <32 [facility] Comment on above: Performed By: #### T ROPI, LACTIC, CMPX, CBC #### [facility] [facility] [address] [place] [address] Motor Vehicle Dispatcher: Tavon Nicole MD Bilirubin [Mass/Vol] 0.24 mg/dL Low 0.3-1.2 [facility] Comment on above: Performed By: #### T ROPI, LACTIC, CMPX, CBC #### [facility] [address] [place] [address] Motor Vehicle Dispatcher: Tavon Nicole MD Calcium [Mass/Vol] 8.1 mg/dL Low 8.6-10.4 [facility] Comment on above: Performed By: #### T ROPI, LACTIC, CMPX, CBC #### [facility] [address] [place] [address] Motor Vehicle Dispatcher: Tavon Nicole MD Chloride [Moles/Vol] 107 mmol/L Normal 98-107 [facility] Comment on above: Performed By: #### T ROPI, LACTIC, CMPX, CBC #### [facility] [facility] [address] [place] [address] Motor Vehicle Dispatcher: Tavon Nicole MD CO2 [Moles/Vol] 19 mmol/L Low 20-31 [facility] Comment on above: Performed By: #### T ROPI, LACTIC, CMPX, CBC #### [facility] [address] [place] [address] Motor Vehicle Dispatcher: Tavon Nicole MD Creatinine [Mass/Vol] 0.53 mg/dL Normal 0.50-0.90 [facility] Comment on above: Performed By: #### T ROPI, LACTIC, CMPX, CBC #### [facility] [address] [place] [address] Motor Vehicle Dispatcher: Tavon Nicole MD GFR, Amer >60 Normal >60 [facility] Comment on above: Performed By: #### T ROPI, LACTIC, CMPX, CBC #### [facility] [address] [place] [address] Motor Vehicle Dispatcher: Tavon Nicole MD GFR,non Amer >60 Normal >60 [facility] Comment on above: Performed By: #### T ROPI, LACTIC, CMPX, CBC #### [facility] [employer] [address] [place] [id number] Motor Vehicle Dispatcher: Tavon Nicole MD Glucose [Mass/Vol] 81 mg/dL Normal 70-99 [facility] Comment on above: Performed By: #### T ROPI, LACTIC, CMPX, CBC #### [facility] [address] [place] [id number] Motor Vehicle Dispatcher: Tavon Nicole MD Potassium [Moles/Vol] 3.9 mmol/L Normal 3.7-5.3 [facility] Comment on above: Performed By: #### T ROPI, LACTIC, CMPX, CBC #### [facility] [place], [place] [id number] Motor Vehicle Dispatcher: Tavon Nicole MD Protein [Mass/Vol] 6.0 g/dL Low 6.4-8.3 [facility] Comment on above: Performed By: #### T ROPI, LACTIC, CMPX, CBC #### [facility] [address] [place] [address] [phone] Motor Vehicle Dispatcher: Tavon Nicole MD Sodium [Moles/Vol] 139 mmol/L Normal 135-144 [facility] Comment on above: Performed By: #### T ROPI, LACTIC, CMPX, CBC #### [facility] [address] [place] [address] [phone] Motor Vehicle Dispatcher: Tavon Nicole MD Urea nitrogen [Mass/Vol] 10 mg/dL Normal 6-20 [facility] Comment on above: Performed By: #### T ROPI, LACTIC, CMPX, CBC #### [facility] [address] [place] [address] [phone] Motor Vehicle Dispatcher: Tavon Nicole MD Comprehensive Metabolic Pane l w/ Reflex to MGon 10-19-2021 Albumin [Mass/Vol] 3.5 g/dL 3.5 - 5.2 g/dL [facility] Albumin/Globulin [Mass ratio] 1.4 {ratio} 1 - 2.5 [facility] ALP (Bld) [Catalytic activity/Vol] 69 U/L 35 - 104 U/L [facility] ALT [Catalytic activity/Vol] 15 U/L 5 - 33 U/L [facility] Anion gap [Moles/Vol] 13 mmol/L 9 - 17 mmol/L [facility] AST [Catalytic activity/Vol] 12 U/L NINF - 32 U/L [facility] Bilirubin [Mass/Vol] 0.24 mg/dL Low 0.3 - 1 .2 mg/dL [facility] Calcium [Mass/Vol] 8.1 mg/dL Low 8.6 - 10. 4 mg/dL [facility] Chloride [Moles/Vol] 107 mmol/L 98 - 10 7 mmol/L [facility] CO2 [Moles/Vol] 19 mmol/L Low 20 - 31 mmol/L [facility] Creatinine [Mass/Vol] 0.53 mg/dL 0.5 - 0.9 mg/dL [facility] Free PSA/Total PSA [Mass fraction] 6.0 g/dL Low 6.4 - 8.3 g/dL [facility] GFR >60 60 - PI NF mL/min [facility] GFR Non- >60 60 - PINF mL/min [facility] GFR/1.73 sq M.predicted MDRD (S/P/Bld) [Vol rate/Area] [facility] Comment on above: Average GFR for 20-2 9 years old: 116 mL/min/1.73sq m Chronic Kidney Disease: <60 mL/min/1.73sq m Kidney failure: <15 mL/min/1.73sq m eGFR calculated using average adult body mass. Additional eGFR calculator available at: http://www.[employer]/multiple_crcl_2012.htm Glucose [Mass/Vol] 81 mg/dL 70 - 99 mg/dL [facility] Interpretation and review of laboratory results Abnormal [facility] Potassium [Moles/Vol] 3.9 mmol/L 3.7 - 5.3 mmol/L [facility] Sodium [Moles/Vol] 139 mmol/L 135 - 144 mmol/L [facility] Urea nitrogen (BldV) [Mass/Vol] 10 mg/dL 6 - 20 mg/dL [facility] Covid-19 PCR (CVDTBH)on 09-22 SARS-CoV-2 (COVID-19) RNA SAURABH+probe Ql (Unsp spec) Not detected Normal NOT DETECTED [facility] Comment on above: Result Comment: When diagnostic [...] for this test is supported by the Agency Trainer of Health and Human Service's declaration that [...] used). Performed By: #### C VDTB #### [facility] [address] [place] [address] Dr. Ibis Jimenez DRUG SCREEN RAPID (URINE)on 10-19-2021 AMP Negative Normal NEGATIVE [facility] Comment on above: Performed By: #### B MP #### [facility] [address] [place] [address] Dr. Iibs Jimenez BAR Positive Abnormal NEGATIVE [facility] Comment on above: Performed By: #### B MP #### [facility] [address] [place] [address] Dr. Ibis iJmenez BUP Negative Normal NEGATIVE [facility] Comment on above: Performed By: #### B MP #### [facility] [address] [place] [address] Dr. Ibis Jimenez BZO Positive Abnormal NEGATIVE [facility] Comment on above: Performed By: #### B MP #### [facility] [address] [place] [address] Dr. Ibis Jimenez SEMAJ Negative Normal NEGATIVE [facility] Comment on above: Performed By: #### B MP #### [facility] [address] [place] [address] Dr. Ibis Jimenez CUT-OFFS SEE BELOW Normal [facility] Comment on above: Result Comment: AMP (Amphetamine): 500ng/mL, BAR (Barbituates): 200 ng/mL, BZO (Benzodiazepines): 150 ng/mL, BUP (Buprenorphine): 10 ng/mL, SEMAJ (Cocaine): 150 ng/mL, mAMP (Methamphetamine): 500 ng/mL, MTD (Methadone): 200 ng/mL, OPI (Opiates): 100 ng/mL, OXY (Oxycodone): 100 ng/mL, PCP (Phencyclidine): 25 ng/mL, PPX (Propoxyphene): 300 ng/mL, THC (Cannabinoids): 50 ng/mL, TCA (Trycyclic Antidepressants): 300 ng/mL Performed By: #### B MP #### [facility] [address] [place] [address] Dr. Ibis Jimenez DRUG CUT HEADER DRUG CLASS TEST SYSTEM CUT-OFF CONCENTRATIONS ARE FOLLOWS: Normal [facility] Comment on above: Performed By: #### B MP #### [facility] [address] [place] [address] Dr. Ibis Jimenez mAMP Negative Normal NEGATIVE [facility] Comment on above: Performed By: #### B MP #### [facility] [address] [place] [address] Dr. Ibis Jimenez MTD Negative Normal NEGATIVE [facility] Comment on above: Performed By: #### B MP #### [facility] [address] [place] [address] Dr. Ibis Jimenez OPI Positive Abnormal NEGATIVE [facility] Comment on above: Performed By: #### B MP #### [facility] [address] [place] [address] Dr. Ibis Jimenez OXY Positive Abnormal NEGATIVE [facility] Comment on above: Performed By: #### B MP #### [facility] [address] [place] [address] Dr. Ibis Jimenez PCP Negative Normal NEGATIVE [facility] Comment on above: Performed By: #### B MP #### [facility] [address] [place] [address] Dr. Ibis Jimenez PPX Negative Normal NEGATIVE [facility] Comment on above: Performed By: #### B MP #### [facility] [address] [place] [address] Dr. Ibis Jimenez TCA Negative Normal NEGATIVE [facility] Comment on above: Performed By: #### B MP #### [facility] [address] [place] [address] [address] Ibis Jimenez THC Negative Normal NEGATIVE [facility] Comment on above: Performed By: #### B MP #### [facility] [address] [address] [address] Ibis Jimenez ER URINE PROFILEon 2 Bilirubin Ql (U) Negative Normal NEGATIVE [facility] Comment on above: Performed By: #### B MP #### [facility] [address] [address] [address] Ibis Jimenez Clarity (U) CLEAR Normal CLEAR [facility] Comment on above: Performed By: #### B MP #### [facility] [address] [place] [address] Dr. Ibis Jimenez Color (U) YELLOW Normal YELLOW [facility] Comment on above: Performed By: #### B MP #### [facility] [address] [place] [address] Dr. Ibis Jimenez ERUAHD A micrscopic examination will be performed if indicated. Normal [facility] Comment on above: Performed By: #### B MP #### [facility] [address] [place] [address] Dr. Ibis Jimenez Glucose Ql (U) Negative Normal NEGATIVE [facility] Comment on above: Performed By: #### B MP #### [facility] [address] [place] [address] Dr. Ibis Jimenez Hemoglobin Ql (U) TRACE-INTACT Abnormal NEGATIVE [facility] Comment on above: Performed By: #### B MP #### [facility] [address] [place] [address] Dr. Ibis Jimenez Ketones Ql (U) Negative Normal NEGATIVE [facility] Comment on above: Performed By: #### B MP #### [facility] [address] [place] [address] Dr. Ibis Jimenez LEUKOCYTES Negative Normal NEGATIVE [facility] Comment on above: Performed By: #### B MP #### [facility] [address] [address] [address] Ibis Jimenez Nitrite Ql (U) Negative Normal NEGATIVE [facility] Comment on above: Performed By: #### B MP #### [facility] [address] [place] [address] Dr. Ibis Jimenez pH (U) 5.5 [pH] Normal 5-9 [facility] Comment on above: Performed By: #### B MP #### [facility] [address] [place] [address] Dr. Ibis Jimenez SPEC GRAVITY >=1.030 Abnormal 1.005-<=1.[address] [place] [address] Comment on above: Performed By: #### B MP #### [facility] [address] [place] [address] Dr. Ibis Jimenez UA PROTEIN Negative Normal NEGATIVE/ TRACE [facility] Comment on above: Performed By: #### B MP #### [facility] [address] [place] [address] Dr. Ibis Jimenez UR MICRO IND INDICATED Normal [facility] Comment on above: Performed By: #### B MP #### [facility] [address] [place] [address] Dr. Ibis Jimenez Urobilinogen Qn (U) 0.2 {Dinorah'U}/dL Normal 0.2 - 1. 0 [facility] Comment on above: Performed By: #### B MP #### [facility] [address] [place] [address] Dr. Ibis Jimenez LACTATE/LACTIC ACIDon 2021 Lactate [Moles/Vol] 1.2 mmol/L Normal 0.4-1.9 [facility] Comment on above: Performed By: #### A MM #### [facility] [address] [place] [address] Dr. Ibis Jimenez Lactic Acidon 10-19-2021 Lactic Acid,Whole Bl 0.9 mmol/L Normal 0.7-2.1 [facility] Comment on above: Performed By: #### T ROPI, LACTIC, CMPX, CBC #### [facility] [address] [place] [address] Motor Vehicle Dispatcher: Tavon Nicole MD Lactic Acid, Whole Blood 0.9 mmol/L 0.7 - 2.1 mmol/L [facility] MONOon 10-19-2021 Monocytes (Bld) [#/Vol] Negative Normal NEGATIVE [facility] Comment on above: Performed By: #### M DAVID #### [facility] [address] [address] [address] Ibis Jimenez MRI BRAIN W WO [...] Carlos Marks DO 10/19/21 Final result Normal [facility] Unremarkable MR brain. [facility] RIS CONSOLIDATED EXAMINATION: MRI OF [...] The soft tissues demonstrate no acute abnormality. [facility] RIS CONSOLIDATED Carlos Marks DO [...] no acute abnormality. IMPRESSION: Unremarkable MR brain. [employer] Phone: Radiology Study observation (narrative) [employer] Phone: MRI BRAIN W WO CONTRASTOrder ed By: Carlos Marks on 10-19-2021 JEREMIAH [email or web address] Work Phone: PH VENOUS BLOODon 10-19-2021 PCO2 VENOUS 36.6 mmHg Critically low 40.0-52.0 [facility] Comment on above: Performed By: #### B MP #### [facility] [address] [address] [address] Ibis Jimenez pH VENOUS 7.387 Normal 7.330-7.430 [facility] Comment on above: Performed By: #### B MP #### [facility] [address] [address] [address] Ibis Jimenez PROF CHEM 8 (BAS METB)on Anion gap [Moles/Vol] 11.9 mmol/L Normal [facility] Comment on above: Performed By: #### M DAVID #### [facility] [address] [address] [address] Ibis Jimenez Calcium [Mass/Vol] 9.1 mg/dL Normal 8.5-10.1 [facility] Comment on above: Performed By: #### M DAVID #### [facility] [address] [address] [address] Ibis Jimenez Chloride [Moles/Vol] 104 mmol/L Normal 98-107 [facility] Comment on above: Performed By: #### M DAVID #### [facility] [address] [address] [address] Ibis Jimenez CO2 [Moles/Vol] 26.7 mmol/L Normal 21.0-32.0 [facility] Comment on above: Performed By: #### M DAVID #### [facility] [address] [place] [address] Dr. Ibis Jimenez Creatinine [Mass/Vol] 0.78 mg/dL Normal 0.55-1.02 [facility] Comment on above: Performed By: #### M DAVID #### [facility] [address] [place] [address] Dr. Ibis Jimenez EGFR-AF [place]IZ[place] >60 Normal >=60 [facility] Comment on above: Performed By: #### M DAVID #### [facility] [address] [address] [address] Ibis Jimenez EGFR-NON AF [place]IZ[place] >60 Normal >=60 [facility] Comment on above: Performed By: #### M DAVID #### [facility] [address] [address] [address] Ibis Jimenez Glucose [Mass/Vol] 96 mg/dL Normal 74-106 [facility] Comment on above: Performed By: #### M DAVID #### [facility] [address] [address] [address] Ibis Jimenez Potassium [Moles/Vol] 3.6 mmol/L Normal 3.5-5.1 [facility] Comment on above: Performed By: #### M DAVID #### [facility] [address] [address] [address] Ibis Jimenez Sodium [Moles/Vol] 139 mmol/L Normal 136-145 [facility] Comment on above: Performed By: #### M DAVID #### [facility] [address] [address] [address] Ibis Jimenez Urea nitrogen [Mass/Vol] 14.0 mg/dL Normal 7.0-18.0 [facility] Comment on above: Performed By: #### M DAVID #### [facility] [address] [address] [address] Ibis Jimenez Urea nitrogen/Creatinine [Mass ratio] 17.9 mg/mg Normal [facility] Comment on above: Performed By: #### M DAVID #### [facility] [address] [address] [address] Ibis Jimenez TSHon 10-19-2021 TSH 1.389 uIU/mL Normal 0.358-3.740 [facility] Comment on above: Performed By: #### A CET SALYC #### [facility] [address] [address] [address] Ibis Jimenez Troponinon 10-19-2021 Troponin, High Sens <6 Normal 0-14 [facility] Comment on above: Result Comment: High Sensitivity Troponin values cannot be compared with other Troponin methodologies. Patients with high levels of Biotin oral intake (i.e >5mg/day) may have falsely decreased Troponin levels. Samples collected within 8 hours of biotin intake may require additional information for diagnosis. Performed By: #### T ROPI, LACTIC, CMPX, CBC #### [facility] [address] [place] [address] Motor Vehicle Dispatcher: Tavon Nicole MD Troponin, High Sensitivity ng/L 0 - 14 ng/L [facility] Comment on above: High Sensitivity Troponin values cannot be compared with other Troponin methodologies. Patients with high levels of Biotin oral intake (i.e >5mg/day) may have falsely decreased Troponin levels. Samples collected within 8 hours of biotin intake may require additional information for diagnosis. [facility] URINE MICROSCOPIC ONLYon BACTERIA TRACE Abnormal NONE SEEN [facility] Comment on above: Performed By: #### B MP #### [facility] [address] [place] [address] Dr. Ibis Jimenez Bacteria identified Cx Nom (U) NOT INDICATED Normal [facility] Comment on above: Performed By: #### B MP #### [facility] [address] [place] [address] Dr. Ibis Jimenez CAST NONE SEEN Normal NONE SEEN [facility] Comment on above: Performed By: #### B MP #### [facility] [address] [place] [address] Dr. Ibis Jimenez Crystals LM Nom (Urine sed) NONE SEEN Normal NONE SEEN [facility] Comment on above: Performed By: #### B MP #### [facility] [address] [place] [address] Dr. Ibis Jimenez Epithelial cells LM Ql (Urine sed) RARE Normal NONE SEEN /RARE [facility] Comment on above: Performed By: #### B MP #### [facility] [address] [place] [address] Dr. Ibis Jimenez MUCOUS LARGE Abnormal NONE SEEN [facility] Comment on above: Performed By: #### B MP #### [facility] [address] [place], [place] [address] Dr. Ibis Jimenez RBC 2-5 Abnormal 0-2 [facility] Comment on above: Performed By: #### B MP #### [facility] [address] [place], [place] [address] Dr. Ibis Jimenez WBC 0-2 Abnormal NONE SEEN [facility] Comment on above: Performed By: #### B MP #### [facility] [id number] Ibis Jimenez [address] ABD/PELVIS WO CONon [...] JASS LAURENT Date: 2021-10-06 20:08 Normal [facility] ER URINE PROFILEon 2 Bilirubin Ql (U) Negative Normal NEGATIVE [facility] Comment on above: Performed By: #### M DAVID #### [facility] [address] [address] [address] Ibis Jimenez Clarity (U) CLEAR Normal CLEAR [facility] Comment on above: Performed By: #### M DAVID #### [facility] [address] [address] [address] Ibis Jimenez Color (U) LT. YELLOW Normal YELLOW [facility] Comment on above: Performed By: #### M DAVID #### [facility] [address] [address] [address] Ibis RODRIGUEZ A micrscopic examination will be performed if indicated. Normal [facility] Comment on above: Performed By: #### M DAVID #### [facility] [address] [place] [address] Dr. Ibis Jimenez Glucose Ql (U) Negative Normal NEGATIVE [facility] Comment on above: Performed By: #### M DAVID #### [facility] [address] [address] [address] Ibis Jimenez Hemoglobin Ql (U) Negative Normal NEGATIVE [facility] Comment on above: Performed By: #### M DAVID #### [facility] [address] [place] [address] Dr. Ibis Jimenez Ketones Ql (U) Negative Normal NEGATIVE [facility] Comment on above: Performed By: #### M DAVID #### [facility] [address] [address] [address] Ibis Jimenez LEUKOCYTES Negative Normal NEGATIVE [facility] Comment on above: Performed By: #### M DAVID #### [facility] [address] [place] [address] Dr. Ibis Jimenez Nitrite Ql (U) Negative Normal NEGATIVE [facility] Comment on above: Performed By: #### M DAVID #### [facility] [address] [place] [address] Dr. Ibis Jimenez pH (U) 8.0 [pH] Normal 5-9 [facility] Comment on above: Performed By: #### M DAVID #### [facility] [address] [place] [address] Dr. Ibis Jimenez SPEC GRAVITY 1.010 Normal 1.005-<=1.02 5 [facility] Comment on above: Performed By: #### M DAVID #### [facility] [address] [place] [address] Dr. Ibis Jimenez UA PROTEIN Negative Normal NEGATIVE/ TRACE [facility] Comment on above: Performed By: #### M DAVID #### [facility] [address] [place] [address] Dr. Ibis Jimenez UR MICRO IND NOT INDICATED Normal [facility] Comment on above: Performed By: #### M DAVID #### [facility] [address] [place] [address] Dr. Ibis Jimenez Urobilinogen Qn (U) 0.2 {Dinorah'U}/dL Normal 0.2 - 1. 0 [facility] Comment on above: Performed By: #### M DAVID #### [facility] [facility] [address] [place] [address] Dr. Ibis Jimenez ER URINE PROFILEon 2 Bilirubin Ql (U) Negative Normal NEGATIVE [facility] Comment on above: Performed By: #### C VDTBH #### [facility] [address] [place] [address] Dr. Ibis Jimenez Clarity (U) CLEAR Normal CLEAR [facility] Comment on above: Performed By: #### C VDTBH #### [facility] [address] [place] [address] Dr. Ibis Jimenez Color (U) YELLOW Normal YELLOW [facility] Comment on above: Performed By: #### C VDTBH #### [facility] [address] [place] [address] Dr. Ibis RODRIGUEZ A micrscopic examination will be performed if indicated. Normal [facility] Comment on above: Performed By: #### C VDTBH #### [facility] [address] [place] [address] Dr. Ibis Jimenez Glucose Ql (U) Negative Normal NEGATIVE [facility] Comment on above: Performed By: #### C VDTBH #### [facility] [address] [place] [address] Dr. Ibis Jimenez Hemoglobin Ql (U) Negative Normal NEGATIVE [facility] Comment on above: Performed By: #### C VDTBH #### [facility] [address] [place] [address] Dr. Ibis Jimenez Ketones Ql (U) Negative Normal NEGATIVE [facility] Comment on above: Performed By: #### C VDTBH #### [facility] [address] [place] [address] Dr. Ibis Jimenez LEUKOCYTES Negative Normal NEGATIVE [facility] Comment on above: Performed By: #### C VDTBH #### [facility] [address] [place] [address] Dr. Ibis Jimenez Nitrite Ql (U) Negative Normal NEGATIVE [facility] Comment on above: Performed By: #### C VDTBH #### [facility] [address] [place] [address] Dr. Ibis Jimenez pH (U) 6.0 [pH] Normal 5-9 [facility] Comment on above: Performed By: #### C VDTBH #### [facility] [address] [place] [address] Dr. Ibis Jimenez SPEC GRAVITY 1.025 Normal 1.005-<=1.02 5 [facility] Comment on above: Performed By: #### C VDTBH #### [facility] [address] [place] [address] Dr. Ibis Jimenez UA PROTEIN Negative Normal NEGATIVE/ TRACE [facility] Comment on above: Performed By: #### C VDTBH #### [facility] [address] [place] [address] Dr. Ibis Jimenez UR MICRO IND NOT INDICATED Normal [facility] Comment on above: Performed By: #### C VDTBH #### [facility] [address] [place] [address] Dr. Ibis Jimenez Urobilinogen Qn (U) 0.2 {Dinorah'U}/dL Normal 0.2 - 1. 0 [facility] Comment on above: Performed By: #### C VDTB #### [facility] [address] [place] [address] Dr. Ibis Jimenez CBC AUTO DIFFon 10-03-2021 BASO # 0.0 103/ul Normal 0.0-0.1 [facility] Comment on above: Performed By: #### B MP #### [facility] [address] [place] [address] Dr. Ibis Jimenez Basophils/100 WBC (Bld) 0.3 % Normal 0.2-2.0 [facility] Comment on above: Performed By: #### B MP #### [facility] [address] [place] [address] Dr. Ibis Jimenez EO # 0.3 103/ul Normal 0.0-0.7 [facility] Comment on above: Performed By: #### B MP #### [facility] [address] [place] [address] Dr. Ibis Jimenez Eosinophils/100 WBC (Bld) 4.1 % Normal 0.9-7.0 [facility] Comment on above: Performed By: #### B MP #### [facility] [address] [place] [address] Dr. Ibis Jimenez Erythrocyte distribution width (RBC) [Ratio] 13.2 % Normal 11.0-15.0 [facility] Comment on above: Performed By: #### B MP #### [facility] [address] [place] [address] Dr. Ibis Jimenez Hematocrit (Bld) [Volume fraction] 35.7 % Critically low 36.0-48.0 [facility] Comment on above: Performed By: #### B MP #### [facility] [address] [place] [address] Dr. Ibis Jimenez Hemoglobin (Bld) [Mass/Vol] 11.6 g/dL Critically low 12.0-16.0 [facility] Comment on above: Performed By: #### B MP #### [facility] [address] [place] [address] Dr. Ibis Jimenez IG # 0.02 10e3/ul Normal 0.00-0.03 [facility] Comment on above: Performed By: #### B MP #### [facility] [address] [place] [address] Dr. Ibis Jimenez IG % 0.3 % Normal 0.0-0.5 [facility] Comment on above: Performed By: #### B MP #### [facility] [address] [place] [address] Dr. Ibis Jimenez LYMPH # 1.5 103/ul Normal 1.2-3.8 [facility] Comment on above: Performed By: #### B MP #### [facility] [address] [place] [address] Dr. Ibis Jimenez Lymphocytes/100 WBC (Bld) 24.3 % Normal 20.5-60.0 [facility] Comment on above: Performed By: #### B MP #### [facility] [address] [place] [address] Dr. Ibis Jimenez MANUAL DIFF REQ NO Normal [facility] Comment on above: Performed By: #### B MP #### [facility] [address] [place] [address] Dr. Ibis Jimenez MCH (RBC) [Entitic mass] 28.9 pg Normal 26.7-34.0 [facility] Comment on above: Performed By: #### B MP #### [facility] [address] [place] [address] Dr. Ibis Jimenez MCHC (RBC) [Mass/Vol] 32.5 g/dL Normal 29.9-35.2 [facility] Comment on above: Performed By: #### B MP #### [facility] [address] [place] [address] Dr. Ibis Jimenez MCV (RBC) [Entitic vol] 89.0 fL Normal 81.0-99.0 [facility] Comment on above: Performed By: #### B MP #### [facility] [address] [place] [address] Dr. Ibis Jimenez MONO # 0.5 103/ul Normal 0.3-0.8 [facility] Comment on above: Performed By: #### B MP #### [facility] [address] [address] [address] Ibis Jimenez Monocytes/100 WBC (Bld) 7.3 % Normal 1.7-12.0 [facility] Comment on above: Performed By: #### B MP #### [facility] [address] [address] [address] Ibis Jimenez NEUT # 4.0 103/ul Normal 1.4-6.5 [facility] Comment on above: Performed By: #### B MP #### [facility] [address] [place] [address] Dr. Ibis Jimenez Neutrophils/100 WBC (Bld) 63.7 % Normal 43.0-75.0 [facility] Comment on above: Performed By: #### B MP #### [facility] [address] [place] [address] Dr. Ibis Jimenez Platelet mean volume (Bld) [Entitic vol] 9.7 fL Normal 9.5-13.5 [facility] Comment on above: Performed By: #### B MP #### [facility] [address] [place] [address] Dr. Ibis Jimenez PLT 237 103/ul Normal 150-450 [facility] Comment on above: Performed By: #### B MP #### [facility] [address] [place] [address] Dr. Ibis Jimenez RBC 4.01 106/ul Critically low 4.20-5.40 [facility] Comment on above: Performed By: #### B MP #### [facility] [address] [place] [address] Dr. Ibis Jimenez WBC 6.3 103/ul Normal 4.0-11.0 [facility] Comment on above: Performed By: #### B MP #### [facility] [address] [place] [address] Dr. Ibis Jimenez LACTATE/LACTIC ACIDon 2021 Lactate [Moles/Vol] 1.2 mmol/L Normal 0.4-1.9 [facility] Comment on above: Performed By: #### A MM #### [facility] [address] [place] [address] Dr. Ibis Jimenez BUNon 10-02-2021 Urea nitrogen [Mass/Vol] 7.0 mg/dL Normal 7.0-18.0 [facility] Comment on above: Performed By: #### C VDTB #### [facility] [address] [place] [address] Dr. Ibis Jimenez CBC AUTO DIFFon 10-02-2021 BASO # 0.0 103/ul Normal 0.0-0.1 [facility] Comment on above: Performed By: #### A MM #### [facility] [address] [place] [address] Dr. Ibis Jimenez Basophils/100 WBC (Bld) 0.2 % Normal 0.2-2.0 [facility] Comment on above: Performed By: #### A MM #### [facility] [address] [place] [address] Dr. Ibis Jimenez EO # 0.0 103/ul Normal 0.0-0.7 [facility] Comment on above: Performed By: #### A MM #### [facility] [address] [place] [address] Dr. Ibis Jimenez Eosinophils/100 WBC (Bld) 0.3 % Critically low 0.9-7.0 [facility] Comment on above: Performed By: #### A MM #### [facility] [address] [place] [address] Dr. Ibis Jimenez Erythrocyte distribution width (RBC) [Ratio] 12.7 % Normal 11.0-15.0 [facility] Comment on above: Performed By: #### A MM #### [facility] [address] [place] [address] Dr. Ibis Jimenez Hematocrit (Bld) [Volume fraction] 43.4 % Normal 36.0-48.0 [facility] Comment on above: Performed By: #### A MM #### [facility] [address] [place] [address] Dr. Ibis Jimenez Hemoglobin (Bld) [Mass/Vol] 14.6 g/dL Normal 12.0-16.0 [facility] Comment on above: Performed By: #### A MM #### [facility] [address] [place] [address] Dr. Ibis Jimenez IG # 0.03 10e3/ul Normal 0.00-0.03 [facility] Comment on above: Performed By: #### A MM #### [facility] [address] [place] [address] Dr. Ibis Jimenez IG % 0.3 % Normal 0.0-0.5 [facility] Comment on above: Performed By: #### A MM #### [facility] [address] [place] [address] Dr. Ibis Jimenez LYMPH # 1.2 103/ul Normal 1.2-3.8 [facility] Comment on above: Performed By: #### A MM #### [facility] [address] [place] [address] Dr. Ibis Jimenez Lymphocytes/100 WBC (Bld) 11.6 % Critically low 20.5-60.0 [facility] Comment on above: Performed By: #### A MM #### [facility] [address] [place] [address] Dr. Ibis Jimenez MANUAL DIFF REQ NO Normal [facility] Comment on above: Performed By: #### A MM #### [facility] [address] [place] [address] Dr. Ibis Jimenez MCH (RBC) [Entitic mass] 28.5 pg Normal 26.7-34.0 [facility] Comment on above: Performed By: #### A MM #### [facility] [address] [place] [address] Dr. Ibis Jimenez MCHC (RBC) [Mass/Vol] 33.6 g/dL Normal 29.9-35.2 [facility] Comment on above: Performed By: #### A MM #### [facility] [address] [place] [address] Dr. Ibis Jimenez MCV (RBC) [Entitic vol] 84.6 fL Normal 81.0-99.0 [facility] Comment on above: Performed By: #### A MM #### [facility] [address] [place] [address] Dr. Ibis Jimenez MONO # 0.6 103/ul Normal 0.3-0.8 [facility] Comment on above: Performed By: #### A MM #### [facility] [address] [place] [address] Dr. Ibis Jimenez Monocytes/100 WBC (Bld) 5.9 % Normal 1.7-12.0 [facility] Comment on above: Performed By: #### A MM #### [facility] [address] [place] [address] Dr. Ibis Jimenez NEUT # 8.2 103/ul Critically high 1.4-6.5 [facility] Comment on above: Performed By: #### A MM #### [facility] [address] [place] [address] Dr. Ibis Jimenez Neutrophils/100 WBC (Bld) 81.7 % Critically high 43.0-75.0 [facility] Comment on above: Performed By: #### A MM #### [facility] [address] [place] [address] Dr. Ibis Jimenez Platelet mean volume (Bld) [Entitic vol] 9.8 fL Normal 9.5-13.5 [facility] Comment on above: Performed By: #### A MM #### [facility] [address] [place] [address] Dr. Ibis Jimenez PLT 264 103/ul Normal 150-450 [facility] Comment on above: Performed By: #### A MM #### [facility] [address] [place] [address] Dr. Ibis Jimenez RBC 5.13 106/ul Normal 4.20-5.40 [facility] Comment on above: Performed By: #### A MM #### [facility] [address] [place] [address] Dr. Ibis Jimenez WBC 10.1 103/ul Normal 4.0-11.0 [facility] Comment on above: Performed By: #### A MM #### [facility] [address] [place] [address] Dr. Ibis Jimenez CREATININEon 10-02-2021 Creatinine [Mass/Vol] 0.69 mg/dL Normal 0.55-1.02 [facility] Comment on above: Performed By: #### C VDTBH #### [facility] [address] [place] [address] Dr. Ibis Jimenez EGFR-AF [place] >60 Normal >=60 [facility] Comment on above: Performed By: #### C VDTBH #### [facility] [address] [place] [address] Dr. Ibis Jimenez EGFR-NON AF [place] >60 Normal >=60 [facility] Comment on above: Performed By: #### C VDTBH #### [facility] [address] [place] [address] Dr. Ibis Jimenez CBC AUTO DIFFon 10-01-2021 BASO # 0.0 103/ul Normal 0.0-0.1 [facility] Comment on above: Performed By: #### A MM #### [facility] [address] [place] [address] Dr. Ibis Jimenez Basophils/100 WBC (Bld) 0.3 % Normal 0.2-2.0 [facility] Comment on above: Performed By: #### A MM #### [facility] [address] [place] [address] Dr. Ibis Jimenez EO # 0.1 103/ul Normal 0.0-0.7 [facility] Comment on above: Performed By: #### A MM #### [facility] [address] [place] [address] Dr. Ibis Jimenez Eosinophils/100 WBC (Bld) 1.9 % Normal 0.9-7.0 [facility] Comment on above: Performed By: #### A MM #### [facility] [address] [place] [address] Dr. Ibis Jimenez Erythrocyte distribution width (RBC) [Ratio] 12.7 % Normal 11.0-15.0 [facility] Comment on above: Performed By: #### A MM #### [facility] [address] [place] [address] Dr. Ibis Jimenez Hematocrit (Bld) [Volume fraction] 38.1 % Normal 36.0-48.0 [facility] Comment on above: Performed By: #### A MM #### [facility] [address] [place] [address] Dr. Ibis Jimenez Hemoglobin (Bld) [Mass/Vol] 12.7 g/dL Normal 12.0-16.0 [facility] Comment on above: Performed By: #### A MM #### [facility] [address] [place] [address] Dr. Ibis Jimenez IG # 0.02 10e3/ul Normal 0.00-0.03 [facility] Comment on above: Performed By: #### A MM #### [facility] [address] [place] [address] Dr. Ibis Jimenez IG % 0.3 % Normal 0.0-0.5 [facility] Comment on above: Performed By: #### A MM #### [facility] [address] [place] [address] Dr. Ibis Jimenez LYMPH # 1.9 103/ul Normal 1.2-3.8 [facility] Comment on above: Performed By: #### A MM #### [facility] [address] [place] [address] Dr. Ibis Jimenez Lymphocytes/100 WBC (Bld) 30.5 % Normal 20.5-60.0 [facility] Comment on above: Performed By: #### A MM #### [facility] [address] [place] [address] Dr. Ibis Jimenez MANUAL DIFF REQ NO Normal [facility] Comment on above: Performed By: #### A MM #### [facility] [address] [place] [address] Dr. Ibis Jimenez MCH (RBC) [Entitic mass] 28.3 pg Normal 26.7-34.0 [facility] Comment on above: Performed By: #### A MM #### [facility] [address] [address] [address] Ibis Jimenez MCHC (RBC) [Mass/Vol] 33.3 g/dL Normal 29.9-35.2 [facility] Comment on above: Performed By: #### A MM #### [facility] [address] [address] [address] Ibis Jimenez MCV (RBC) [Entitic vol] 85.0 fL Normal 81.0-99.0 [facility] Comment on above: Performed By: #### A MM #### [facility] [address] [place] [address] Dr. Ibis Jimenez MONO # 0.3 103/ul Normal 0.3-0.8 [facility] Comment on above: Performed By: #### A MM #### [facility] [address] [place] [address] Dr. Ibis Jimenez Monocytes/100 WBC (Bld) 5.2 % Normal 1.7-12.0 [facility] Comment on above: Performed By: #### A MM #### [facility] [address] [place] [address] Dr. Ibis Jimenez NEUT # 3.9 103/ul Normal 1.4-6.5 [facility] Comment on above: Performed By: #### A MM #### [facility] [address] [place] [address] Dr. Ibis Jimenez Neutrophils/100 WBC (Bld) 61.8 % Normal 43.0-75.0 [facility] Comment on above: Performed By: #### A MM #### [facility] [address] [place] [address] Dr. Ibis Jimenez Platelet mean volume (Bld) [Entitic vol] 9.7 fL Normal 9.5-13.5 [facility] Comment on above: Performed By: #### A MM #### [facility] [address] [address] [address] Ibis Jimenez PLT 255 103/ul Normal 150-450 [facility] Comment on above: Performed By: #### A MM #### [facility] [address] [address] [address] Ibis Jimenez RBC 4.48 106/ul Normal 4.20-5.40 [facility] Comment on above: Performed By: #### A MM #### [facility] [address] [place], [place] [address] Dr. Ibis Jimenez WBC 6.3 103/ul Normal 4.0-11.0 [facility] Comment on above: Performed By: #### A MM #### [facility] [address] [address] [address] Ibis Jimenez PREG HCG QUALon 10-01-2021 , QUAL Negative Normal NEGATIVE [facility] Comment on above: Performed By: #### M DAVID #### [facility] [address] [place] [address] Dr. Ibis Jimenez [facility]on 09-20 SARS-CoV-2 (COVID-19) RNA SAURABH+probe Ql (Unsp spec) Not detected Normal NOT DETECTED The [facility] Comment on above: Result Comment: This test is not yet approved or cleared by the [place] FDA. When there are no FDA-approved or cleared tests available, and other criteria are met, FDA can make tests available under an emergency access mechanism called an Emergency Use Authorization (EUA). The EUA for this test is supported by the [place] of Health and Human Service's (HHS's) declaration [...] SARS-CoV-2. Performed By: #### B MP #### [facility] [address] [address] [address] Ibis Jimenez TYPE AND SCREENon 09-29-2021 TYPE AND SCREEN Negative Normal [facility] Comment on above: Performed By: #### B MP #### [facility] [address] [place] [address] Dr. Ibis Jimenez Covid-19 PCR ([facility])on SARS-CoV-2 (COVID-19) RNA SAURABH+probe Ql (Unsp spec) Not detected Normal NOT DETECTED The [facility] Comment on above: Result Comment: This test is not yet approved or cleared by the [place] FDA. When there are no FDA-approved or cleared tests available, and other criteria are met, FDA can make tests available under an emergency access mechanism called an Emergency Use Authorization (EUA). The EUA for this test is supported by the Agency [employer] of Health and Human Service's (HHS's) declaration [...] SARS-CoV-2. Performed By: #### C VDTB #### [facility] [address] [place] [address] Dr. Ibis Jimenez TYPE AND SCREENon 09-21-2021 TYPE AND SCREEN Negative Normal [facility] Comment on above: Performed By: #### B MP #### [facility] [address] [place], [place] [address] Dr. Ibis Jimenez CHLAMYDIA/GONOCOCCUS SAURABH (SW AB/URINE/PAPon 08-17-2021 Chlamydia trachomatis, SAURABH Negative Normal Negative The [facility] Comment on above: Performed By: #### A CET, SALYC #### [facility] [address] [place] [address] Dr. Ibis Jimenez Neisseria gonorrhoeae, SAURABH Negative Normal Negative The [facility] Comment on above: Performed By: #### A CET, SALYC #### [facility] [address] [place] [address] Dr. Ibis Jimenez CBC AUTO DIFFon 08-14-2021 BASO # 0.0 103/ul Normal 0.0-0.1 [facility] Comment on above: Performed By: #### C VDTBH #### [facility] [address] [place] [address] Dr. Ibis Jimenez Basophils/100 WBC (Bld) 0.3 % Normal 0.2-2.0 [facility] Comment on above: Performed By: #### C VDTBH #### [facility] [address] [place] [address] Dr. Ibis Jimenez EO # 0.2 103/ul Normal 0.0-0.7 [facility] Comment on above: Performed By: #### C VDTBH #### [facility] [address] [place] [address] Dr. Ibis Jimenez Eosinophils/100 WBC (Bld) 2.5 % Normal 0.9-7.0 [facility] Comment on above: Performed By: #### C VDTBH #### [facility] [address] [place] [address] Dr. Ibis Jimenez Erythrocyte distribution width (RBC) [Ratio] 13.0 % Normal 11.0-15.0 [facility] Comment on above: Performed By: #### C VDTBH #### [facility] [address] [place] [address] Dr. Ibis Jimenez Hematocrit (Bld) [Volume fraction] 38.1 % Normal 36.0-48.0 [facility] Comment on above: Performed By: #### C VDTBH #### [facility] [address] [place] [address] Dr. Ibis Jimenez Hemoglobin (Bld) [Mass/Vol] 12.8 g/dL Normal 12.0-16.0 [facility] Comment on above: Performed By: #### C VDTBH #### [facility] [address] [place] [address] Dr. Ibis Jimenez IG # 0.02 10e3/ul Normal 0.00-0.03 [facility] Comment on above: Performed By: #### C VDTBH #### [facility] [address] [place] [address] Dr. Ibis Jimenez IG % 0.3 % Normal 0.0-0.5 [facility] Comment on above: Performed By: #### C VDTBH #### [facility] [address] [place] [address] Dr. Ibis Jimenez LYMPH # 1.5 103/ul Normal 1.2-3.8 [facility] Comment on above: Performed By: #### C VDTBH #### [facility] [address] [place] [address] Dr. Ibis Jimenez Lymphocytes/100 WBC (Bld) 22.5 % Normal 20.5-60.0 [facility] Comment on above: Performed By: #### C VDTBH #### [facility] [address] [place] [address] Dr. Ibis Jimenez MANUAL DIFF REQ NO Normal [facility] Comment on above: Performed By: #### C VDTBH #### [facility] [address] [place] [address] Dr. Ibis Jimenez MCH (RBC) [Entitic mass] 28.6 pg Normal 26.7-34.0 [facility] Comment on above: Performed By: #### C VDTBH #### [facility] [address] [place] [address] Dr. Ibis Jimenez MCHC (RBC) [Mass/Vol] 33.6 g/dL Normal 29.9-35.2 [facility] Comment on above: Performed By: #### C VDTBH #### [facility] [address] [place] [address] Dr. Ibis Jimenez MCV (RBC) [Entitic vol] 85.0 fL Normal 81.0-99.0 [facility] Comment on above: Performed By: #### C VDTBH #### [facility] [address] [place] [address] Dr. Ibis Jimenez MONO # 0.4 103/ul Normal 0.3-0.8 [facility] Comment on above: Performed By: #### C VDTBH #### [facility] [address] [place] [address] Dr. Ibis Jimenez Monocytes/100 WBC (Bld) 6.3 % Normal 1.7-12.0 [facility] Comment on above: Performed By: #### C VDTBH #### [facility] [address] [place] [address] Dr. Ibsi Jimenez NEUT # 4.6 103/ul Normal 1.4-6.5 [facility] Comment on above: Performed By: #### C VDTBH #### [facility] [address] [place] [address] Dr. Ibis Jimenez Neutrophils/100 WBC (Bld) 68.1 % Normal 43.0-75.0 [facility] Comment on above: Performed By: #### C VDTBH #### [facility] [address] [place] [address] Dr. Ibis Jimenez Platelet mean volume (Bld) [Entitic vol] 9.8 fL Normal 9.5-13.5 [facility] Comment on above: Performed By: #### C VDTBH #### [facility] [address] [place] [address] Dr. Ibis Jimenez PLT 243 103/ul Normal 150-450 The [facility] Comment on above: Performed By: #### C VDTBH #### [facility] [address] [place] [address] Dr. Ibis Jimenez RBC 4.48 106/ul Normal 4.20-5.40 [facility] Comment on above: Performed By: #### C VDTBH #### [facility] [address] [place] [address] Dr. Ibis Jimenez WBC 6.7 103/ul Normal 4.0-11.0 [facility] Comment on above: Performed By: #### C VDTBH #### [facility] [address] [place] [address] ABD/PELVIS WO CONon [...] NELI COTTO Date: 2021-08-14 18:00 Normal The [facility] ER URINE PROFILEon 2 Bilirubin Ql (U) SMALL Abnormal NEGATIVE [facility] Comment on above: Performed By: #### B MP #### [facility] [address], [place] [address] Dr. Ibis Jimenez Clarity (U) CLEAR Normal CLEAR The [facility] Comment on above: Performed By: #### B MP #### [facility] [address] [id number] [address] Ibis Jimenez Color (U) YELLOW Normal YELLOW The [facility] Comment on above: Performed By: #### B MP #### [facility] [address] [address] [address] Ibis RODRIGUEZ A micrscopic examination will be performed if indicated. Normal The [facility] Comment on above: Performed By: #### B MP #### [facility] [address] [address] [address] Ibis Jimenez Glucose Ql (U) Negative Normal NEGATIVE The [facility] Comment on above: Performed By: #### B MP #### [facility] [address] [place] [address] Dr. Ibis Jimenez Hemoglobin Ql (U) SMALL Abnormal NEGATIVE [facility] Comment on above: Performed By: #### B MP #### [facility] [address] [address] [address] Ibis Jimenez Ketones Ql (U) TRACE Abnormal NEGATIVE [facility] Comment on above: Performed By: #### B MP #### [facility] [address] [place] [address] Dr. Ibis Jimenez LEUKOCYTES Negative Normal NEGATIVE [facility] Comment on above: Performed By: #### B MP #### [facility] [address] [place] [address] Dr. Ibis Jimenez Nitrite Ql (U) Negative Normal NEGATIVE [facility] Comment on above: Performed By: #### B MP #### [facility] [address] [place] [address] Dr. Ibis Jimenez pH (U) 5.5 [pH] Normal 5-9 [facility] Comment on above: Performed By: #### B MP #### [facility] [address] [place] [address] Dr. Ibis Jimenez SPEC GRAVITY >=1.030 Abnormal 1.005-<=1.02 5 [facility] Comment on above: Performed By: #### B MP #### [facility] [address] [place] [address] Dr. Ibis Jimenez UA PROTEIN TRACE Normal NEGATIVE/ TRACE The [facility] Comment on above: Performed By: #### B MP #### [facility] [address] [place] [address] Dr. Ibis Jimenez UR MICRO IND INDICATED Normal [facility] Comment on above: Performed By: #### B MP #### [facility] [address] [address] [address] Ibis Jimenez Urobilinogen Qn (U) 1.0 {Dinorah'U}/dL Normal 0.2 - 1. 0 [facility] Comment on above: Performed By: #### B MP #### [facility] [address] [address] [address] Ibis Jimenez URon 08-14-2021 , QUAL Negative Normal NEGATIVE [facility] Comment on above: Performed By: #### B MP #### [facility] [address] [address] [address] Ibis Jimenez PROF CHEM 8 (BAS METB)on Anion gap [Moles/Vol] 15.3 mmol/L Normal [facility] Comment on above: Performed By: #### B MP #### [facility] [address] [address] [address] Ibis Jimenez Calcium [Mass/Vol] 8.4 mg/dL Critically low 8.5-10.1 [facility] Comment on above: Performed By: #### B MP #### [facility] [address] [place] [address] Dr. Ibis Jimenez Chloride [Moles/Vol] 106 mmol/L Normal 98-107 [facility] Comment on above: Performed By: #### B MP #### [facility] [address] [address] [address] Ibis Jimenez CO2 [Moles/Vol] 22.3 mmol/L Normal 21.0-32.0 [facility] Comment on above: Performed By: #### B MP #### [facility] [address] [place] [address] Dr. Ibis Jimenez Creatinine [Mass/Vol] 0.75 mg/dL Normal 0.55-1.02 [facility] Comment on above: Performed By: #### B MP #### [facility] [address] [place] [address] Dr. Ibis Jimenez EGFR-AF [place] >60 Normal >=60 [facility] Comment on above: Performed By: #### B MP #### [facility] [address] [address] [address] Ibis Jimenez EGFR-NON AF [place] >60 Normal >=60 [facility] Comment on above: Performed By: #### B MP #### [facility] [address] [address] [address] Ibis Jimenez Glucose [Mass/Vol] 107 mg/dL Critically high 74-106 T [facility] Comment on above: Performed By: #### B MP #### [facility] [address] [address] [address] Ibis Jimenez Potassium [Moles/Vol] 3.6 mmol/L Normal 3.5-5.1 [facility] Comment on above: Performed By: #### B MP #### [facility] [address] [place] [address] Dr. Ibis Jimenez Sodium [Moles/Vol] 140 mmol/L Normal 136-145 [facility] Comment on above: Performed By: #### B MP #### [facility] [address] [address] [address] Ibis Jimenez Urea nitrogen [Mass/Vol] 13.0 mg/dL Normal 7.0-18.0 [facility] Comment on above: Performed By: #### B MP #### [facility] [address] [place] [address] Dr. Ibis Jimenez Urea nitrogen/Creatinine [Mass ratio] 17.3 mg/mg Normal [facility] Comment on above: Performed By: #### B MP #### [facility] [address] [address] [address] Ibis Jimenez URINE MICROSCOPIC ONLYon BACTERIA TRACE Abnormal NONE SEEN The [facility] Comment on above: Performed By: #### B MP #### [facility] [address] [place] [address] Dr. Ibis Jimenez Bacteria identified Cx Nom (U) NOT INDICATED Normal [facility] Comment on above: Performed By: #### B MP #### [facility] [address] [address] [address] Ibis Jimenez CAST NONE SEEN Normal NONE SEEN The [facility] Comment on above: Performed By: #### B MP #### [facility] [address] [place] [address] Dr. Ibis Jimenez Crystals LM Nom (Urine sed) NONE SEEN Normal NONE SEEN The [facility] Comment on above: Performed By: #### B MP #### [facility] [address] [place] [address] Dr. Ibis Jimenez Epithelial cells LM Ql (Urine sed) MANY Abnormal NONE SEEN /RARE The [facility] Comment on above: Performed By: #### B MP #### [facility] [address] [place] [address] Dr. Ibis Jimenez MUCOUS SMALL Abnormal NONE SEEN The [facility] Comment on above: Performed By: #### B MP #### [facility] [address] [place] [address] Dr. Ibis Jimenez RBC 2-5 Abnormal 0-2 The [facility] Comment on above: Performed By: #### B MP #### [facility] [address] [place] [address] Dr. Ibis Jimenez WBC 2-5 Abnormal NONE SEEN The [facility] Comment on above: Performed By: #### B MP #### [facility] [address] [place] [address] Dr. Ibis Jimenez CBC Auto DifferentialOrdered By: Keven Ching on 12-24-2020 [employer] Eos # 0.44 [facility] Work Phone: Absolute Immature Granulocyte 0.05 [employer] Work Phone: Absolute Lymph # 2.48 [employer] [facility] Work Phone: [employer] [place] # 0.55 [employer] [facility] Work Phone: Basophils (Bld) [#/Vol] 10*3/uL [employer] Work Phone: Basophils/100 WBC (Bld) 0 % 0 - 2 % [employer] Work Phone: Differential Type NOT REPORTED [employer] Phone: Eosinophils/100 WBC (Bld) 5 % High 1 - 4 % [employer] Phone: Hematocrit (Bld) [Volume fraction] 37.4 % 36.3 - 47.1 % [employer] Phone: Hemoglobin.gastrointes tinal spec 1 Ql (Stl) 12.3 g/dL 11.9 - 15.1 g/dL [employer] Phone: Immature granulocytes/100 WBC (Bld) 1 % High 0 [employer] Phone: Interpretation and review of laboratory results Abnormal [employer] Phone: Lymphocytes/100 WBC (Bld) 30 % 24 - 43 % [employer] Phone: MCH (RBC) [Entitic mass] 28.5 pg 25.2 - 33.5 pg [employer] Phone: MCHC (RBC) [Mass/Vol] 32.9 g/dL 28.4 - 34.8 g/dL [employer] Phone: MCV (RBC) [Entitic vol] 86.8 fL 82.6 - 102.9 fL [employer] Phone: Monocytes/100 WBC (Bld) 7 % 3 - 12 % [employer] Phone: NRBC Automated 0.0 0.0 per 100 WBC [employer] Phone: Platelet distribution width (Bld) [Ratio] 12.7 % 11.8 - 14.4 % [employer] Phone: Platelet Estimate NOT REPORTED [employer] Phone: Platelet mean volume (Bld) [Entitic vol] 9.4 fL 8.1 - 13.5 fL [employer] Phone: Platelets (Bld) [#/Vol] 252 10*3/uL [employer] Phone: RBC (Bld) [#/Vol] 4.31 10*6/uL 3.95 - 5.1 1 m/uL [employer] Work Phone: RBC (Bld) [#/Vol] NOT REPORTED [employer] Work Phone: Segmented neutrophils/100 WBC (Bld) 57 % 36 - 65 % [employer] Work Phone: Segs Absolute 4.78 [employer] Work Phone: WBC (Bld) [#/Vol] 8.3 10*3/uL [employer] Work Phone: WBC (Bld) [#/Vol] NOT REPORTED [employer] Phone: [employer] Work Phone: CBC with Diffon 12-24-2020 Abs. Basophil <0.03 Normal 0.00-0.20 [facility] Comment on above: Performed By: #### C MPX, CDP #### [address] [place] [address] Motor Vehicle Dispatcher: Souleymane Pineda MD Abs.Imm.Granulocyte 0.05 k/uL Normal 0.00-0.30 [facility] Comment on above: Performed By: #### C MPX, CDP #### [address] [place], [facility] Motor Vehicle Dispatcher: Souleymane Pineda MD Abs.Neutrophil (Seg) 4.78 k/uL Normal 1.50-8.10 [facility] Comment on above: Performed By: #### C MPX, CDP #### [address] [place] [id number] Motor Vehicle Dispatcher: Souleymane Pineda MD Basophils/100 WBC (Bld) 0 % Normal 0-2 [facility] Comment on above: Performed By: #### C MPX, CDP #### [facility] [address] [place], [place] [id number] Motor Vehicle Dispatcher: Souleymane Pineda MD Eosinophils (Bld) [#/Vol] 0.44 10*3/uL Normal 0.00-0.44 [facility] Comment on above: Performed By: #### C MPX, CDP #### [address] [place], [facility] Motor Vehicle Dispatcher: Souleymane Pineda MD Eosinophils/100 WBC (Bld) 5 % High 1-4 [facility] Comment on above: Performed By: #### C MPX, CDP #### [address] [place], [facility] Motor Vehicle Dispatcher: Souleymane Pineda MD Erythrocyte distribution width (RBC) [Ratio] 12.7 % Normal 11.8-14.4 [facility] Comment on above: Performed By: #### C MPX, CDP #### [address] [place], [facility] Motor Vehicle Dispatcher: Souleymane Pineda MD Hematocrit (Bld) [Volume fraction] 37.4 % Normal 36.3-47.1 [facility] Comment on above: Performed By: #### C MPX, CDP #### [address] [place], [facility] Motor Vehicle Dispatcher: Souleymane Pineda MD Hemoglobin (Bld) [Mass/Vol] 12.3 g/dL Normal 11.9-15.1 [facility] Comment on above: Performed By: #### C MPX, CDP #### [address] [place], [place] [id number] Motor Vehicle Dispatcher: Souleymane Pineda MD Immature granulocytes/100 WBC (Bld) 1 % High 0 [facility] Comment on above: Performed By: #### C MPX, CDP #### [address] [place] [id number] Motor Vehicle Dispatcher: Souleymane Pineda MD Lymphocytes (Bld) [#/Vol] 2.48 10*3/uL Normal 1.10-3.70 [facility] Comment on above: Performed By: #### C MPX, CDP #### [facility] [address] [place] [id number] Motor Vehicle Dispatcher: Souleymane Pineda MD Lymphocytes/100 WBC (Bld) 30 % Normal 24-43 [facility] Comment on above: Performed By: #### C MPX, CDP #### [facility] [address] [place] [id number] ( Motor Vehicle Dispatcher: Souleymane Pineda MD MCH (RBC) [Entitic mass] 28.5 pg Normal 25.2-33.5 [facility] Comment on above: Performed By: #### C MPX, CDP #### [address] [place], [place] [address] Motor Vehicle Dispatcher: Souleymane Pineda MD MCHC (RBC) [Mass/Vol] 32.9 g/dL Normal 28.4-34.8 [facility] Comment on above: Performed By: #### C MPX, CDP #### [address] [place], [facility] ( Motor Vehicle Dispatcher: Souleymane Pineda MD MCV (RBC) [Entitic vol] 86.8 fL Normal 82.6-102.9 [facility] Comment on above: Performed By: #### C MPX, CDP #### [address] [place], [facility] Motor Vehicle Dispatcher: Souleymane Pineda MD Monocytes (Bld) [#/Vol] 0.55 10*3/uL Normal 0.10-1.20 [facility] Comment on above: Performed By: #### C MPX, CDP #### [address] [place], [facility] Motor Vehicle Dispatcher: Souleymane Pineda MD Monocytes/100 WBC (Bld) 7 % Normal 3-12 [facility] Comment on above: Performed By: #### C MPX, CDP #### [facility] [address] [place], [place] [id number] Motor Vehicle Dispatcher: Souleymane Pineda MD Neutrophil (Seg) 57 % Normal 36-65 [facility] Comment on above: Performed By: #### C MPX, CDP #### [facility] [address] [place], [place] [id number] Motor Vehicle Dispatcher: Souleymane Pineda MD NRBC Automated 0.0 per 100 WBC Normal 0.0 [facility] Comment on above: Performed By: #### C MPX, CDP #### [address] [place], [place] [id number] Motor Vehicle Dispatcher: Souleymane Pineda MD Platelet mean volume (Bld) [Entitic vol] 9.4 fL Normal 8.1-13.5 [facility] Comment on above: Performed By: #### C MPX, CDP #### [address] [place], [place] [id number] Motor Vehicle Dispatcher: Souleymane Pineda MD Platelets (Bld) [#/Vol] 252 10*3/uL Normal 138-453 [facility] Comment on above: Performed By: #### C MPX, CDP #### [facility] [address] [place], [place] [id number] Motor Vehicle Dispatcher: Souleymane Pineda MD RBC (Bld) [#/Vol] 4.31 10*6/uL Normal 3.95-5.11 [facility] Comment on above: Performed By: #### C MPX, CDP #### [facility] [address] [place] [address] Motor Vehicle Dispatcher: Souleymane Pineda MD WBC (Bld) [#/Vol] 8.3 10*3/uL Normal 3.5-11.3 [facility] Comment on above: Performed By: #### C MPX, CDP #### [facility] [address] [place], [place] [id number] Motor Vehicle Dispatcher: Souleymane Pineda MD Auto Diff Performed NOT REPORTED Normal [facility] Comment on above: Performed By: #### C MPX, CDP #### [facility] [address] [place], [place] [id number] Motor Vehicle Dispatcher: Souleymane Pineda MD Platelet Comment NOT REPORTED Normal [facility] Comment on above: Performed By: #### C MPX, CDP #### [facility] [address] [place] [address] Dr[address] [place], [place] [id number] Motor Vehicle Dispatcher: Souleymane Pineda MD RBC morphology finding Nom (Bld) NOT REPORTED Normal [facility] Comment on above: Performed By: #### C MPX, CDP #### [facility] [address] [place], [place] [id number] Motor Vehicle Dispatcher: Souleymane Pineda MD WBC Morphology NOT REPORTED Normal [facility] Comment on above: Performed By: #### C MPX, CDP #### [facility] [address] [place] [address] Dr. [place], [place] [id number] Motor Vehicle Dispatcher: Souleymane Pineda MD CT HEAD WO CONTRASTon [...] the orbits demonstrate no acute abnormality. SINUSES: Eebv-rl-mfjwitnr paranasal sinus mucosal thickening. SOFT TISSUES/SKULL: No acute abnormality of the visualized skull or soft tissues. IMPRESSION: No acute intracranial abnormality. Interpreted by: Edwin Bentley MD Signed by: Edwin Bentley MD 12/24/20 Final result Normal [facility] CT Head WO ContrastOrdered B y: Keven Ching on 12-24-2020 No acute intracranial abnormality. [employer] Phone: EXAMINATION: CT OF THE HEAD WITHOUT [...] the orbits demonstrate no acute abnormality. SINUSES: Rrnw-ze-glwubjze paranasal sinus mucosal thickening. SOFT TISSUES/SKULL: No acute abnormality of the visualized skull or soft tissues. [facility] Phone: Dimitri, [facility] Incoming Radiant Results From [facility] - 12/24/2020 8:49 PM EDT EXAMINATION: CT [...] the orbits demonstrate no acute abnormality. SINUSES: Pyvr-ua-ocjxwyxg paranasal sinus mucosal thickening. SOFT TISSUES/SKULL: No acute abnormality of the visualized skull or soft tissues. IMPRESSION: No acute intracranial abnormality. [facility] Work Phone: [facility] Work Phone: Comp Metabolic Pr/rfx MGon 1 02-24-2020 Bilirubin [Mass/Vol] mg/dL Low 0.3-1.2 [facility] Comment on above: Performed By: #### C RONNX, CDP #### [facility] [address] [place] [address] [place] [address] Motor Vehicle Dispatcher: Souleymane Pineda MD (cont.) Normal [facility] Comment on above: Result Comment: Aver age GFR for 20-29 years old: 116 mL/min/1.73sq m Chronic Kidney Disease: <60 mL/min/1.73sq m Kidney failure: <15 mL/min/1.73sq m eGFR calculated using average adult body mass. Additional eGFR calculator available at: http://www.[employer] Work Study/multiple_crcl_2012.htm Performed By: #### C JULIA, CDP #### [address] [place] [address] Motor Vehicle Dispatcher: Souleymane Pineda MD Albumin [Mass/Vol] 4.0 g/dL Normal 3.5-5.2 [facility] Comment on above: Performed By: #### C RONNX, CDP #### [address] [place] [address] Motor Vehicle Dispatcher: Souleymane Pineda MD Albumin/Glob Ratio 1.5 Normal 1.0-2.5 [facility] Comment on above: Performed By: #### C JULIA, CDP #### [facility] [address] [place], [place] [id number] Motor Vehicle Dispatcher: Souleymane Pineda MD Alkaline Phos 90 U/L Normal 35-104 [facility] Comment on above: Performed By: #### C MPX, CDP #### [facility] [address] [place], [place] [id number] Motor Vehicle Dispatcher: Souleymane Pineda MD ALT [Catalytic activity/Vol] 40 U/L High 5-33 [facility] Comment on above: Performed By: #### C MPX, CDP #### [facility] [address] [place], [place] [id number] Motor Vehicle Dispatcher: Souleymane Pineda MD Anion gap [Moles/Vol] 11 mmol/L Normal 9-17 [facility] Comment on above: Performed By: #### C MPX, CDP #### [facility] [address] [place], [place] [id number] Motor Vehicle Dispatcher: Souleymane Pineda MD AST [Catalytic activity/Vol] 19 U/L Normal <32 [facility] Comment on above: Performed By: #### C MPX, CDP #### [facility] [address] [place], [place] [phone] Motor Vehicle Dispatcher: Souleymane Pineda MD BUN/CRE Ratio 15 Normal 9-20 [facility] Comment on above: Performed By: #### C MPX, CDP #### [facility] [address] [place], [place] [id number] Motor Vehicle Dispatcher: Souleymane Pineda MD Calcium [Mass/Vol] 8.9 mg/dL Normal 8.6-10.4 [facility] Comment on above: Performed By: #### C MPX, CDP #### [facility] [address] [place], [place] [id number] Motor Vehicle Dispatcher: Souleymane Pineda MD Chloride [Moles/Vol] 104 mmol/L Normal 98-107 [facility] Comment on above: Performed By: #### C MPX, CDP #### [facility] [address] [place], [place] [phone] Motor Vehicle Dispatcher: Souleymane Pineda MD CO2 [Moles/Vol] 24 mmol/L Normal 20-31 [facility] Comment on above: Performed By: #### C MPX, CDP #### [facility] [address] [place], [place] [id number] Motor Vehicle Dispatcher: Souleymane Pineda MD Creatinine [Mass/Vol] 0.60 mg/dL Normal 0.50-0.90 [facility] Comment on above: Performed By: #### C MPX, CDP #### [facility] [address] [place], [place] [id number] Motor Vehicle Dispatcher: Souleymane Pineda MD GFR, Amer >60 Normal >60 [facility] Comment on above: Performed By: #### C MPX, CDP #### [facility] [address] [place], [place] [id number] Motor Vehicle Dispatcher: Souleymane Pineda MD GFR,non Amer >60 Normal >60 [facility] Comment on above: Performed By: #### C MPX, CDP #### [facility] [address] [place], [place] [id number] Motor Vehicle Dispatcher: Souleymane Pineda MD Glucose [Mass/Vol] 91 mg/dL Normal 70-99 [facility] Comment on above: Performed By: #### C MPX, CDP #### [facility] [address] [place], [place] [id number] Motor Vehicle Dispatcher: Souleymane Pineda MD Potassium [Moles/Vol] 4.0 mmol/L Normal 3.7-5.3 [facility] Comment on above: Performed By: #### C MPX, CDP #### [facility] [address] [place] [address] Motor Vehicle Dispatcher: Souleymane Pineda MD Protein [Mass/Vol] 6.7 g/dL Normal 6.4-8.3 [facility] Comment on above: Performed By: #### C MPX, CDP #### [facility] [address] [place] [address] Motor Vehicle Dispatcher: Souleymane Pineda MD Sodium [Moles/Vol] 139 mmol/L Normal 135-144 [facility] Comment on above: Performed By: #### C MPX, CDP #### [facility] [address] [place] [address] Motor Vehicle Dispatcher: Souleymane Pineda MD Staging: Normal [facility] Comment on above: Result Comment: Stag e 1: Some kidney damage normal GFR Stage 2: Mild kidney damage GFR 60-89 Stage 3: Moderate kidney damage GFR 30-59 Stage 4: Severe kidney damage GFR 15-29 Stage 5: Severe kidney damage GFR <15 ESRD - chronic treatment by dialysis or transplant Performed By: #### C MPX, CDP #### [facility] [address] [place] [address] [place] [address] Motor Vehicle Dispatcher: Souleymane Pineda MD Urea nitrogen [Mass/Vol] 9 mg/dL Normal 6-20 [facility] Comment on above: Performed By: #### C MPX, CDP #### [facility] [address] [place] [address] [place] [address] Motor Vehicle Dispatcher: Souleymane Pineda MD Comprehensive Metabolic Pane l w/ Reflex to MGOrdered By: Keven Ching on 12-24-2020 Albumin [Mass/Vol] 4 g/dL 3.5 - 5.2 g/dL [facility] Work Phone: Albumin/Globulin [Mass ratio] 1.5 {ratio} [facility] [employer] Phone: ALP (Bld) [Catalytic activity/Vol] 90 U/L 35 - 104 U/L [facility] Work Phone: ALT [Catalytic activity/Vol] 40 U/L High 5 - 33 U/L [employer] Phone: Anion gap [Moles/Vol] 11 mmol/L 9 - 17 mmol/L [employer] Phone: AST [Catalytic activity/Vol] 19 U/L <32 [employer] Phone: Bilirubin [Mass/Vol] mg/dL Low 0.3 - 1 .2 mg/dL [employer] Phone: Calcium [Mass/Vol] 8.9 mg/dL 8.6 - 10. 4 mg/dL [employer] Phone: Chloride [Moles/Vol] 104 mmol/L 98 - 10 7 mmol/L [employer] Phone: CO2 [Moles/Vol] 24 mmol/L 20 - 31 mmol/L [employer] Phone: Creatinine [Mass/Vol] 0.6 mg/dL 0.50 - 0.90 mg/dL [employer] Phone: Free PSA/Total PSA [Mass fraction] 6.7 g/dL 6.4 - 8.3 g/dL [employer] Phone: GFR >60 >60 mL/min [employer] Phone: GFR Non- >60 >60 mL/min [employer] Phone: Glucose [Mass/Vol] 91 mg/dL 70 - 99 mg/dL [employer] Phone: Interpretation and review of laboratory results Abnormal [employer] Phone: Potassium [Moles/Vol] 4.0 mmol/L 3.7 - 5.3 mmol/L [employer] Phone: Sodium [Moles/Vol] 139 mmol/L 135 - 144 mmol/L [employer] Phone: Urea nitrogen (BldV) [Mass/Vol] 9 mg/dL 6 - 20 mg/dL [employer] Phone: Urea nitrogen/Creatinine (Bld) [Mass ratio] 15 [employer] Phone: [employer] Phone: Laboratory - Chemistry and C hemistry - challengeOrdered By: Keven Ching on 12-24-2020 GFR/1.73 sq M.predicted MDRD (S/P/Bld) [Vol rate/Area] [employer] Phone: Comment on above: Average GFR for 20-2 9 years old: 116 mL/min/1.73sq m Chronic Kidney Disease: <60 mL/min/1.73sq m Kidney failure: <15 mL/min/1.73sq m eGFR calculated using average adult body mass. Additional eGFR calculator available at: http://www.[employer]/Package Concierge_crcl_2011.htm Stage 1: Some kidney damage normal GFR Stage 2: Mild kidney damage GFR 60-89 Stage 3: Moderate kidney damage GFR 30-59 Stage 4: Severe kidney damage GFR 15-29 Stage 5: Severe kidney damage GFR <15 ESRD - chronic treatment by dialysis or transplant Vital Signs Date Time Vital Sign Value Performing Clinician Facility 10-24-2024 14:57-0400 Body height 152.4 cm Mali Hart [employer] Work Phone: [facility] 10-24-2024 14:57-0400 Body mass index (BMI) [Ratio] 53.75 kg/m2 Maliluisa Hart [employer] Work Phone: [facility] 10-24-2024 14:57-0400 Body temperature 98.6 [degF] Maliluisa Hart [employer] Work Phone: [facility] 10-24-2024 14:57-0400 Body weight 124.83 kg Maliluisa Hart [employer] Work Phone: [facility] 10-24-2024 14:57-0400 Diastolic blood pressure 76 mm[Hg] Mali Hart [employer] Work Phone: [facility] 10-24-2024 14:57-0400 Heart rate 97 /min Mali Hart [employer] Work Phone: [facility] 10-24-2024 14:57-0400 SaO2% (BldA) [Mass fraction] 95 % Mali Hart [employer] Work Phone: [facility] 10-24-2024 14:57-0400 Systolic blood pressure 122 mm[Hg] Mali Hart [employer] Work Phone: [facility] 09-03-2024 10:33-0400 Body mass index (BMI) [Ratio] 50.73 kg/m2 Zay Roopa DO Work Phone: [facility] 09-03-2024 10:33-0400 Body weight 121.79 kg Zay Roopa DO Work Phone: [facility] 09-03-2024 10:33-0400 Diastolic blood pressure 100 mm[Hg] Zay Roopa DO Work Phone: [facility] 09-03-2024 10:33-0400 Systolic blood pressure 136 mm[Hg] Zay Roopa DO Work Phone: [facility] 08-02-2024 12:12-0400 Diastolic blood pressure 77 mm[Hg] Infusion 5 Work Phone: [facility] 08-02-2024 12:12-0400 Heart rate 97 /min [facility] Work Phone: [facility] 08-02-2024 12:12-0400 Systolic blood pressure 124 mm[Hg] Infusion 5 Work Phone: [facility] 08-01-2024 12:24-0400 Diastolic blood pressure 90 mm[Hg] Infusion 7 Work Phone: [facility] 08-01-2024 12:24-0400 Heart rate 98 /min [facility] 7 Work Phone: [facility] 08-01-2024 12:24-0400 Systolic blood pressure 134 mm[Hg] Infusion 7 Work Phone: [facility] 07-24-2024 15:07-0400 Body height 152.4 cm Halima Johns [employer] Work Phone: [facility] 07-24-2024 15:07-0400 Body mass index (BMI) [Ratio] 49.76 kg/m2 Halima Johns [employer] Work Phone: [facility] 07-24-2024 15:07-0400 Body temperature 98.01 [degF] Halima Johns [employer] Work Phone: [facility] 07-24-2024 15:07-0400 Body weight 115.58 kg Halima Johns [employer] Work Phone: [facility] 07-24-2024 15:07-0400 Diastolic blood pressure 76 mm[Hg] Halima Johns [employer] Work Phone: [facility] 07-24-2024 15:07-0400 Heart rate 102 /min Halima Johns [employer] Work Phone: [facility] 07-24-2024 15:07-0400 SaO2% (BldA) [Mass fraction] 99 % Halima Johns [employer] Work Phone: [facility] 07-24-2024 15:07-0400 Systolic blood pressure 122 mm[Hg] Halima Johns [employer] Work Phone: [facility] 07-01-2024 08:40-0400 Body mass index (BMI) [Ratio] 47.2 kg/m2 Zay Roopa DO Work Phone: [facility] 07-01-2024 08:40-0400 Body weight 113.31 kg Zay Roopa DO Work Phone: [facility] 07-01-2024 08:40-0400 Diastolic blood pressure 80 mm[Hg] Zay Blas DO Work Phone: [facility] 07-01-2024 08:40-0400 Systolic blood pressure 120 mm[Hg] Zay Blas DO Work Phone: [facility] 05-21-2024 09:43-0400 Body mass index (BMI) [Ratio] 46.09 kg/m2 Rajinder Cotton DO Work Phone: [facility] 05-21-2024 09:43-0400 Body temperature 97.81 [degF] Rajinder Cotton DO Work Phone: [facility] 05-21-2024 09:43-0400 Body weight 107.05 kg Rajinder Cotton DO Work Phone: [facility] 05-21-2024 09:43-0400 Diastolic blood pressure 90 mm[Hg] Rajinder Cotton DO Work Phone: [facility] 05-21-2024 09:43-0400 Heart rate 106 /min Rajinder Cotton DO Work Phone: [facility] 05-21-2024 09:43-0400 SaO2% (BldA) [Mass fraction] 98 % Rajinder Cotton DO Work Phone: [facility] 05-21-2024 09:43-0400 Systolic blood pressure 130 mm[Hg] Rajinder Cotton DO Work Phone: [facility] 05-15-2024 08:46-0400 Body height 152.4 cm Svetlana HERNANDEZ Work Phone: [facility] 05-15-2024 08:46-0400 Body mass index (BMI) [Ratio] 46.36 kg/m2 Svetlana HERNANDEZ Work Phone: [facility] 05-15-2024 08:46-0400 Body temperature 98.1 [degF] Svetlana HERNANDEZ Work Phone: [facility] [email or web address] [facility] 05-15-2024 08:46-0400 Body weight 107.68 kg Svetlana Ye PA Work Phone: [facility] [email or web address] [facility] 05-15-2024 08:46-0400 Diastolic blood pressure 72 mm[Hg] Svetlana Ye PA Work Phone: [facility] [email or web address] [facility] 05-15-2024 08:46-0400 Heart rate 98 /min Svetlana Ye PA Work Phone: [facility] [email or web address] [facility] 05-15-2024 08:46-0400 Respiratory rate 18 /min Svetlana Ye PA Work Phone: [facility] [email or web address] [facility] 05-15-2024 08:46-0400 SaO2% (BldA) [Mass fraction] 98 % Svetlana Ye PA Work Phone: [email or web address] [email or web address] [facility] 05-15-2024 08:46-0400 Systolic blood pressure 135 mm[Hg] Svetlana Stewartne PA Work Phone: [facility] 05-02-2024 12:20-0400 Diastolic blood pressure 70 mm[Hg] Infusion 7 Work Phone: [facility] 05-02-2024 12:20-0400 Heart rate 90 /min Infusion 7 Work Phone: [facility] 05-02-2024 12:20-0400 Systolic blood pressure 130 mm[Hg] Infusion 7 Work Phone: [facility] 04-25-2024 13:06-0500 Body height 154.9 cm Corine Gold MD Work Phone: [facility] 04-25-2024 13:06-0500 Body mass index (BMI) [Ratio] 44.01 kg/m2 Corine Gold MD Work Phone: [facility] 04-25-2024 13:06-0500 Body temperature 97.7 [degF] Corine Gold MD Work Phone: [facility] 04-25-2024 13:06-0500 Body weight 105.6 kg Corine Gold MD Work Phone: [facility] 04-25-2024 13:06-0500 Diastolic blood pressure 78 mm[Hg] Corine Gold MD Work Phone: [facility] 04-25-2024 13:06-0500 Heart rate 91 /min Corine Gold MD Work Phone: [facility] 04-25-2024 13:06-0500 SaO2% (BldA) [Mass fraction] 98 % Corine Gold MD Work Phone: [facility] 04-25-2024 13:06-0500 Systolic blood pressure 126 mm[Hg] Corine Gold MD Work Phone: [facility] 04-24-2024 09:45-0500 Body mass index (BMI) [Ratio] 44.58 kg/m2 Svetlana Ye PA Work Phone: [facility] [email or web address] [facility] 04-24-2024 09:45-0500 Body temperature 97.9 [degF] Svetlana Ye PA Work Phone: [facility] [email or web address] [facility] 04-24-2024 09:45-0500 Body weight 106.96 kg Svetlana Ye PA Work Phone: [facility] [email or web address] [facility] 04-24-2024 09:45-0500 Diastolic blood pressure 79 mm[Hg] Svetlana Ye PA Work Phone: [facility] [email or web address] [facility] 04-24-2024 09:45-0500 Heart rate 99 /min Svetlana Ye PA Work Phone: [facility] [email or web address] [facility] 04-24-2024 09:45-0500 SaO2% (BldA) [Mass fraction] 96 % Svetlana Ye PA Work Phone: [facility] [email or web address] [facility] 04-24-2024 09:45-0500 Systolic blood pressure 124 mm[Hg] [facility] 04-15-2024 09:16-0500 Diastolic blood pressure 76 mm[Hg] [facility] 04-15-2024 09:16-0500 Heart rate 88 /min [facility] 04-15-2024 09:16-0500 Respiratory rate 16 /min [facility] 04-15-2024 09:16-0500 SaO2% (BldA) [Mass fraction] 96 % [facility]vetl[facility] 04-15-2024 09:16-0500 Systolic blood pressure 122 mm[Hg] Svet[facility] 04-15-2024 09:01-0500 Body height 154.9 cm [facility]lana [facility] 04-15-2024 09:01-0500 Body mass index (BMI) [Ratio] 45.83 kg/m2 Sevtlana Ye PA [facility] 04-15-2024 09:01-0500 Body weight 109.95 kg Svetlana Ye [facility] 04-10-2024 11:09-0500 Body temperature 97.5 [degF] Milad Hernandez MD [facility] 04-10-2024 11:09-0500 Diastolic blood pressure 63 mm[Hg] Milad Hernadnez MD [facility] 04-10-2024 11:09-0500 Heart rate 90 /min [facility] 04-10-2024 11:09-0500 Respiratory rate 18 /min Milad Hernandez MD Work Phone: [facility] [email or web address] [facility] 04-10-2024 11:09-0500 SaO2% (BldA) [Mass fraction] 95 % Milad Hernandez MD Work Phone: [email or web address] [email or web address] [facility] 04-10-2024 11:09-0500 Systolic blood pressure 117 mm[Hg] Milad Hernandez MD Work Phone: [facility] 04-10-2024 05:25-0500 Body mass index (BMI) [Ratio] 47.4 kg/m2 Milad Hernandez MD Work Phone: [facility] [email or web address] [facility] 04-10-2024 05:25-0500 Body weight 113.8 kg Milad Hernandez MD Work Phone: [email or web address] [email or web address] [facility] 04-02-2024 13:07-0500 Body mass index (BMI) [Ratio] 45.73 kg/m2 Zay Roopa DO Work Phone: [facility] [employer] 04-02-2024 13:07-0500 Body weight 109.77 kg Zay Roopa DO Work Phone: [facility] [employer] 04-02-2024 13:07-0500 Diastolic blood pressure 90 mm[Hg] Zay Roopa [employer] Work Phone: [facility] [employer] 04-02-2024 13:07-0500 Systolic blood pressure 130 mm[Hg] Zay Roopa [employer] Work Phone: [facility] 03-25-2024 15:21-0500 Body temperature 98.2 [degF] [facility] [employer] 03-25-2024 15:21-0500 Diastolic blood pressure 62 mm[Hg] [facility] [email or web address] [facility] 03-25-2024 15:21-0500 Heart rate 86 /min [facility] 03-25-2024 15:21-0500 Respiratory rate 20 /min [facility] [employer] 03-25-2024 15:21-0500 SaO2% (BldA) [Mass fraction] 99 % [facility] 03-25-2024 15:21-0500 Systolic blood pressure 132 mm[Hg] [facility] 03-25-2024 14:58-0500 Body height 154.9 cm [facility] 03-25-2024 14:58-0500 Body mass index (BMI) [Ratio] 45.57 kg/m2 [facility] 03-25-2024 14:58-0500 Body weight 109.4 kg [facility] 3 [facility] 03-20-2024 12:15-0500 Body height 154.9 cm Vincent Peña DO Work Phone: [facility] 03-20-2024 12:15-0500 Body mass index (BMI) [Ratio] 45.54 kg/m2 Vincent Peña DO Work Phone: [facility] 03-20-2024 12:15-0500 Body weight 109.32 kg Vincent Peña DO Work Phone: [facility] 03-20-2024 12:15-0500 Diastolic blood pressure 80 mm[Hg] Vincent Peña DO Work Phone: [facility] 03-20-2024 12:15-0500 Heart rate 97 /min Vincent Peña DO Work Phone: [facility] 03-20-2024 12:15-0500 SaO2% (BldA) [Mass fraction] 98 % Vincent Peña DO Work Phone: [facility] 03-20-2024 12:15-0500 Systolic blood pressure 129 mm[Hg] Vincent Peña DO Work Phone: [facility] 03-20-2024 12:07-0500 Body height 154.9 cm [facility] 3 [facility] 03-20-2024 12:07-0500 Body mass index (BMI) [Ratio] 45.54 kg/m2 [facility] 3 [facility] 03-20-2024 12:07-0500 Body weight 109.[address] 03-18-2024 11:03-0500 Body height 154.9 cm Mundo Martinez MD Work Phone: [facility] [email or web address] [facility] 03-18-2024 11:03-0500 Body mass index (BMI) [Ratio] 45.69 kg/m2 Mundo Martinez MD Work Phone: [facility] [email or web address] [facility] 03-18-2024 11:03-0500 Body temperature 97.9 [degF] Mundo Martinez MD Work Phone: [facility] [email or web address] [facility] 03-18-2024 11:03-0500 Body weight 109.68 kg Mundo Martinez MD Work Phone: [facility] 03-18-2024 11:03-0500 Heart rate 77 /min Mundo Martinez MD Work Phone: [facility] 03-18-2024 11:03-0500 SaO2% (BldA) [Mass fraction] 99 % Mundo Martinez MD Work Phone: [facility] [email or web address] [facility] 03-06-2024 10:45-0500 Body mass index (BMI) [Ratio] 45.69 kg/m2 Zay Roopa DO Work Phone: [facility] 03-06-2024 10:45-0500 Body weight 109.68 kg Zay Roopa DO Work Phone: [facility] 03-06-2024 10:45-0500 Diastolic blood pressure 84 mm[Hg] Zay Roopa DO Work Phone: [facility] 03-06-2024 10:45-0500 Systolic blood pressure 122 mm[Hg] Zay Roopa DO Work Phone: [facility] 02-28-2024 11:25-0500 Body mass index (BMI) [Ratio] 47.31 kg/m2 Zay Roopa DO Work Phone: [facility] 02-28-2024 11:25-0500 Body weight 113.58 kg Zay Roopa DO Work Phone: [facility] 02-28-2024 11:25-0500 Diastolic blood pressure 80 mm[Hg] Zay Roopa DO Work Phone: [facility] 02-28-2024 11:25-0500 Systolic blood pressure 126 mm[Hg] Zay Roopa DO Work Phone: [facility] 02-09-2024 10:38-0500 Body height 154.9 cm Lamont Shay MD Work Phone: [facility] 02-09-2024 10:38-0500 Body mass index (BMI) [Ratio] 49.13 kg/m2 Lamont Shay MD Work Phone: [facility] 02-09-2024 10:38-0500 Body temperature 98.01 [degF] Lamont Shay MD Work Phone: [facility] 02-09-2024 10:38-0500 Body weight 117.94 kg Lamont Shay MD Work Phone: [facility] 02-09-2024 10:38-0500 Diastolic blood pressure 58 mm[Hg] Lamont Shay MD Work Phone: [facility] 02-09-2024 10:38-0500 Heart rate 111 /min Lamont Shay MD Work Phone: [facility] 02-09-2024 10:38-0500 Respiratory rate 22 /min Lamont Shay MD Work Phone: [facility] 02-09-2024 10:38-0500 SaO2% (BldA) [Mass fraction] 90 % Lamont Shay MD Work Phone: [facility] 02-09-2024 10:38-0500 Systolic blood pressure 118 mm[Hg] Lamont Shay MD Work Phone: [facility] 01-23-2024 13:28-0500 Body height 154.9 cm Lamont Shay MD Work Phone: [facility] 01-23-2024 13:28-0500 Body mass index (BMI) [Ratio] 52.91 kg/m2 Lamont Shay MD Work Phone: [facility] 01-23-2024 13:28-0500 Body temperature 98.4 [degF] Lamont Shay MD Work Phone: [facility] 01-23-2024 13:28-0500 Body weight 127.01 kg Lamont Shay MD Work Phone: [facility] 01-23-2024 13:28-0500 Diastolic blood pressure 74 mm[Hg] Lamont Shay MD Work Phone: [facility] 01-23-2024 13:28-0500 Heart rate 123 /min Lamont Shay MD Work Phone: [facility] 01-23-2024 13:28-0500 Respiratory rate 26 /min Lamont Shay MD Work Phone: [facility] 01-23-2024 13:28-0500 SaO2% (BldA) [Mass fraction] 87 % Lamont Shay MD Work Phone: [facility] 01-23-2024 13:28-0500 Systolic blood pressure 128 mm[Hg] Lamont Shay MD Work Phone: [facility] 01-22-2024 15:39-0500 Diastolic blood pressure 82 mm[Hg] Infusion 1 Work Phone: [facility] 01-22-2024 15:39-0500 Heart rate 97 /min Infusion 1 Work Phone: [facility] 01-22-2024 15:39-0500 Systolic blood pressure 135 mm[Hg] Infusion 1 Work Phone: [facility] 01-22-2024 13:35-0500 SaO2% (BldA) [Mass fraction] 97 % Infusion 1 Work Phone: [facility] Comment on above: on room air 01-19-2024 11:28-0500 Diastolic blood pressure 75 mm[Hg] Infusion 5 Work Phone: [facility] 01-19-2024 11:28-0500 Heart rate 88 /min Infusion 5 Work Phone: [facility] 01-19-2024 11:28-0500 Systolic blood pressure 126 mm[Hg] Infusion 5 Work Phone: [facility] 01-19-2024 10:00-0500 Body temperature 97.3 [degF] Infusion 5 Work Phone: [facility] 01-17-2024 11:09-0500 Diastolic blood pressure 69 mm[Hg] Infusion 6 Work Phone: [facility] 01-17-2024 11:09-0500 Heart rate 85 /min Infusion 6 Work Phone: [facility] 01-17-2024 11:09-0500 Systolic blood pressure 129 mm[Hg] Infusion 6 Work Phone: [facility] 01-09-2024 09:18-0500 Body height 154.9 cm Lamont Shay MD Work Phone: [facility] 01-09-2024 09:18-0500 Body mass index (BMI) [Ratio] 53.66 kg/m2 Lamont Shay MD Work Phone: [facility] 01-09-2024 09:18-0500 Body temperature 98.01 [degF] Lamont Shay MD Work Phone: [facility] 01-09-2024 09:18-0500 Body weight 128.82 kg Lamont hSay MD Work Phone: [facility] 01-09-2024 09:18-0500 Diastolic blood pressure 72 mm[Hg] Lamont Shay MD Work Phone: [facility] 01-09-2024 09:18-0500 Heart rate 101 /min Lamont Shay MD Work Phone: [facility] 01-09-2024 09:18-0500 Respiratory rate 20 /min Lamont Shay MD Work Phone: [facility] 01-09-2024 09:18-0500 SaO2% (BldA) [Mass fraction] 90 % Lamont Shay MD Work Phone: [facility] 01-09-2024 09:18-0500 Systolic blood pressure 140 mm[Hg] Lamont Shay MD Work Phone: [facility] 01-05-2024 13:38-0500 Diastolic blood pressure 83 mm[Hg] Infusion 8 Work Phone: [facility] 01-05-2024 13:38-0500 Heart rate 105 /min Infusion 8 Work Phone: [facility] 01-05-2024 13:38-0500 Systolic blood pressure 139 mm[Hg] Infusion 8 Work Phone: [facility] 11-15-2023 09:05-0400 Body height 154.9 cm Lamont Shay MD Work Phone: [facility] 11-15-2023 09:05-0400 Body mass index (BMI) [Ratio] 51.58 kg/m2 Lamont Shay MD Work Phone: [facility] 11-15-2023 09:05-0400 Body temperature 97.81 [degF] Lamont Shay MD Work Phone: [facility] 11-15-2023 09:05-0400 Body weight 123.83 kg Lamont Shay MD Work Phone: [facility] 11-15-2023 09:05-0400 Diastolic blood pressure 66 mm[Hg] Lamont Shay MD Work Phone: [facility] 11-15-2023 09:05-0400 Heart rate 60 /min Lamont Shay MD Work Phone: [facility] 11-15-2023 09:05-0400 Respiratory rate 24 /min Lamont Shay MD Work Phone: [facility] 11-15-2023 09:05-0400 Systolic blood pressure 126 mm[Hg] Lamont Shay MD Work Phone: [facility] 10-13-2023 13:51-0400 Diastolic blood pressure 74 mm[Hg] Infusion 8 Work Phone: [facility] 10-13-2023 13:51-0400 Heart rate 77 /min Infusion 8 Work Phone: [facility] 10-13-2023 13:51-0400 Systolic blood pressure 134 mm[Hg] Infusion 8 Work Phone: [facility] 10-10-2023 09:25-0400 Body height 154.9 cm Lamont Shay MD Work Phone: [facility] 10-10-2023 09:25-0400 Body mass index (BMI) [Ratio] 48.94 kg/m2 Lamont Shay MD Work Phone: [facility] 10-10-2023 09:25-0400 Body temperature 97.5 [degF] Lamont Shay MD Work Phone: [facility] 10-10-2023 09:25-0400 Body weight 117.48 kg Lamont Shay MD Work Phone: [facility] 10-10-2023 09:25-0400 Diastolic blood pressure 78 mm[Hg] Lamont Shay MD Work Phone: [facility] 10-10-2023 09:25-0400 Heart rate 88 /min Lamont Shay MD Work Phone: [facility] 10-10-2023 09:25-0400 Respiratory rate 22 /min Lamont Shay MD Work Phone: [facility] 10-10-2023 09:25-0400 SaO2% (BldA) [Mass fraction] 95 % Lamont Shay MD Work Phone: [facility] 10-10-2023 09:25-0400 Systolic blood pressure 116 mm[Hg] Lamont Shay MD Work Phone: [facility] 09-19-2023 14:22-0400 Body height 158.4 cm Sagar Green PR INTERN[employer] Work Phone: [facility] 09-19-2023 14:22-0400 Body mass index (BMI) [Ratio] 47.33 kg/m2 Cameroni Green PR INTERN.[employer] Work Phone: [facility] 09-19-2023 14:22-0400 Body temperature 99.1 [degF] Cameroni Green PR INTERN.[employer] Work Phone: [facility] 09-19-2023 14:22-0400 Body weight 118.75 kg Koli Green PR INTERN.[employer] Work Phone: [facility] 09-19-2023 14:22-0400 Diastolic blood pressure 81 mm[Hg] Cameroni Green PR INTERN.[employer] Work Phone: [facility] 09-19-2023 14:22-0400 Heart rate 80 /min Sagar Green PR INTERN.[employer] Work Phone: [facility] 09-19-2023 14:22-0400 Systolic blood pressure 115 mm[Hg] Sagar Green PR INTERN.[employer] Work Phone: [facility] 08-18-2023 09:26-0400 Diastolic blood pressure 51 mm[Hg] Curtis Lepe PA-C Work Phone: [facility] 08-18-2023 09:26-0400 Heart rate 88 /min Curtis Lepe PA-C Work Phone: [facility] 08-18-2023 09:26-0400 SaO2% (BldA) [Mass fraction] 97 % Curtis Lepe PA-C Work Phone: [facility] 08-18-2023 09:26-0400 Systolic blood pressure 116 mm[Hg] Curtis Lepe PA-C Work Phone: [facility] 04-14-2023 11:08-0500 Diastolic blood pressure 62 [...] pressure 81 mm[Hg] Jesse Samples Work Phone: [facility] 12-03-2021 09:47-0400 Heart rate 66 /min Jesse Samples Work Phone: [facility] 12-03-2021 09:47-0400 SaO2% (BldA) [Mass fraction] 100 % Jesse Samples Work Phone: [facility] 12-03-2021 09:47-0400 Systolic blood pressure 131 mm[Hg] Jesse Samples Work Phone: [facility] 10-20-2021 12:00-0400 Diastolic blood pressure 101 mm[Hg] Lucila Mota MD Work Phone: [facility] [email or web address] 10-20-2021 12:00-0400 Heart rate 85 /min Lucila Mota MD Work Phone: [employer] 10-20-2021 12:00-0400 Respiratory rate 12 /min Lucila Mota MD Work Phone: [employer] 10-20-2021 12:00-0400 SaO2% (BldA) [Mass fraction] 98 % Lucila Mota MD Work Phone: [employer] 10-20-2021 12:00-0400 Systolic blood pressure 136 mm[Hg] Lucila Mota MD Work Phone: [employer] 10-20-2021 08:00-0400 Body temperature 98.2 [degF] Lucila Mota MD Work Phone: [facility] [email or web address] 12-24-2020 19:36-0400 Body temperature 99 [degF] Keven Ching DO Work Phone: [employer] Work Phone: 12-24-2020 19:36-0400 Diastolic blood pressure 80 mm[Hg] Keven Ching DO Work Phone: [employer] Work Phone: 12-24-2020 19:36-0400 Heart rate 108 /min Keven Ching DO Work Phone: [employer] Work Phone: 12-24-2020 19:36-0400 Respiratory rate 20 /min Keven Ching [employer] Work Phone: [employer] Work Phone: 12-24-2020 19:36-0400 SaO2% (BldA) [Mass fraction] 96 % Keven Ching [employer] Work Phone: [employer] Work Phone: 12-24-2020 19:36-0400 Systolic blood pressure 136 mm[Hg] Keven Ching [employer] Work Phone: [employer] Work Phone: Encounters Encounter Date Encounter Type Care Provider Facility Start: 11-26-2024 End: 11-26-2024 ambulatory [facility] Facility:[facility] Start: 11-25-2024 ambulatory Ramsey Nunn acility:[facility] Start: 10-24-2024 End: 10-24-2024 Office outpatient visit 15 minutes Mali MCCLAIN Work Phone: [facility] Comment on above: Left otitis media, u nspecified otitis media type (Primary Dx); Mild asthma with exacerbation, unspecified whether persistent Start: 09-30-2024 End: 09-30-2024 Orders Only Vincent Peña DO Work Phone: [facility] Comment on above: Moderate persistent asthma, unspecified whether complicated Start: 09-29-2024 End: 10-02-2024 Refill Corine Gold MD Work Phone: [facility] Comment on above: Muscle spasm Start: 09-24-2024 End: 09-24-2024 ambulatory CURTIS LEPE Facility:[facility] Start: 09-03-2024 End: 09-03-2024 Bamboo flowsheet Zay Blas DO Work Phone: [facility] Start: 09-03-2024 End: 09-03-2024 Bamboo flowsheet Zay Roopa DO Work Phone: [facility] Start: 09-03-2024 End: 09-03-2024 Office outpatient visit 15 minutes Zay Roopa DO Work Phone: [facility] Comment on above: Hot flashes due to s urgical menopause Start: 09-03-2024 End: 09-03-2024 ambulatory ZAY ROOPA Not Available Start: 09-02-2024 End: 09-02-2024 Orders Only Koli Green PR INTERN.[employer] Work Phone: Neurology [facility] Comment on above: Intractable chronic migraine without aura and without status migrainosus (Primary Dx) Start: 08-30-2024 End: 08-30-2024 Orders Only Koli Green PR INTERN.[employer] Work Phone: Neurology [facility] Start: 08-26-2024 End: 08-26-2024 Orders Only Maliluisa Hart PR INTERN-[employer] Work Phone: [facility] Comment on above: Allergic reaction, s equela (Primary Dx) Start: 08-16-2024 End: 08-16-2024 ambulatory Koli Green PR INTERN[employer] Work Phone: Neurology [facility] Comment on above: Infusion Start: 08-15-2024 End: 08-19-2024 ambulatory Curtis Lepe PA-C Work Phone: Neurology Comment on above: Heads pounding Start: 08-05-2024 End: 08-06-2024 Telephone encounter Rhiannon Acuna [facility] Comment on above: [...] Office outpatient visit 25 minutes Halima Johns APRN-[employer] C[employer] Work Phone: [facility] Comment on above: Eye infection, bilat eral (Primary Dx); Ingrown nail of great toe Start: 07-05-2024 End: 07-05-2024 Documentation procedure [facility] Comment on above: Received [facility] FAX Start: 07-05-2024 End: 07-05-2024 Telephone encounter Curtis Lepe PA-C Work Phone: Neurology Comment on above: Infusion (Headache i nfusion scheduling) Start: 07-04-2024 End: 07-04-2024 [facility] Curtis Lepe PA-C Work Phone: Neurology Comment [...] End: 08-16-2024 Telephone encounter Viktoria Walton MS, [facility] Work Phone: [facility] Comment on above: Genetic Testing Prio r Authorization Request Start: 06-11-2024 End: 06-11-[address] [facility] Start: 06-10-2024 End: 06-10-2024 Orders Only Shadmagdiel Anton MS, [facility] Work Phone: [facility] Start: 06-07-2024 End: 06-07-2024 Telephone encounter Nirmala Lopez [facility] Start: 06-06-2024 End: 06-06-2024 Office outpatient visit 25 minutes Corine Gold MD Work Phone: [facility] Comment on above: Weight loss (Primary Dx); Moderate persistent asthma with acute exacerbation; Seasonal allergic rhinitis, unspecified trigger Start: 06-06-2024 End: 06-10-2024 Refill Corine Gold MD Work Phone: [facility] Comment on above: Seasonal allergic rh initis, unspecified trigger Start: 05-31-2024 End: 06-04-2024 Refill Sagar Barth APRN.[employer]ER Work Phone: Neurology Headache [facility] Comment on above: Refill Request Start: 05-24-2024 End: 05-27-2024 Refill Vincent Peña DO Work Phone: [facility] Comment on above: Moderate persistent asthma, unspecified whether complicated Start: 05-21-2024 End: 05-21-2024 Office outpatient visit 15 minutes Rajinder Cotton DO Work Phone: [facility] Comment on above: Moderate persistent asthma with acute exacerbation (Primary Dx); Acute pansinusitis, recurrence not specified; Antibiotic-induced yeast infection Start: 05-15-2024 End: 05-15-2024 Postop follow up visit related to original px Svetlana HERNANDEZ Work Phone: Joie Pradeep [facility] - Medical Oncology Comment on above: S/P bilateral salpin go-oophorectomy (Primary Dx); Menopausal symptoms Start: 05-07-2024 End: 05-13-2024 Telephone encounter Angely Cotton RN Work Phone: [facility] Comment on above: Insurance Authorizat ion; [employer] Start: 05-03-2024 End: 05-03-2024 [facility] Curtis Lepe PA-C Work Phone: Neurology Comment on above: Intractable chronic migraine without aura and with status migrainosus (Primary Dx); Nausea; Generalized anxiety disorder Start: 05-02-2024 End: 05-02-2024 Orders Only Svetlana HERNANDEZ Work Phone: [facility] Gynecology Oncology, A Department of [facility] Comment on above: Postoperative infect [...] Start: 04-24-2024 End: 04-24-2024 Documentation procedure Alice Fernández [facility] - Medical Oncology Start: 04-24-2024 End: 04-24-2024 Postop follow up visit related to original px Svetlana HERNANDEZ Work Phone: Joie [address] [facility] - Medical Oncology Comment on above: Post-operative pain (Primary Dx) Start: 04-19-2024 End: 04-22-2024 ambulatory Sagar Barth APRN.CNP Work Phone: Neurology [facility] Comment on above: Infusions Start: 04-16-2024 End: [...] to original px Svetlana HERNANDEZ Work Phone: [facility] Gynecology Oncology, A Department of [facility] Comment on above: Postoperative surgic al complication involving genitourinary system associated with genitourinary procedure, unspecified complication (Primary Dx); Post-op pain; Sweating profusely; Menopausal symptoms; Nausea and vomiting, unspecified vomiting type Start: 04-08-2024 End: 04-08-2024 Telephone encounter Sofia Ku CMA [facility] Gynecology Oncology, A Department of [facility] Start: 04-08-2024 End: 04-10-2024 Evaluation and management of inpatient Yordy Melton DO Work Phone: [facility] - GEN 6 Acute Comment [...] 04-01-2024 Orders Only Svetlana HERNANDEZ Work Phone: [facility] Gynecology Oncology, A Department of [facility] Comment on above: S/P bilateral salpin go-oophorectomy Post-op pain (Primar y Dx) Start: 03-25-2024 End: 03-25-2024 Patient encounter status [facility] Start: 03-25-2024 End: 03-25-2024 Orders Only Mundo Martinez MD Work Phone: [facility] Gynecology Oncology, A Department of [facility] Comment on above: Preop testing (Prima ry Dx); Bilateral ovarian cysts Start: 03-21-2024 End: 03-21-2024 Telephone encounter Mundo Martinez MD Work Phone: [facility] Gynecology Oncology, A Department of [facility] Comment on above: Other (Surgery quest ions) Start: 03-21-2024 End: 03-21-2024 ambulatory Sagar Barth PR INTERN.[employer] Work Phone: Neurology [facility] Comment on above: Intractable chronic migraine without aura and without status migrainosus (Primary Dx) Start: 03-21-2024 End: 03-21-2024 Telemedicine consultation with patient Sagar Barth PR INTERN.[employer] Work Phone: Neurology [facility] Start: 03-20-2024 End: 03-20-2024 Office outpatient new 45 minutes Vincent Peña DO Work Phone: [facility] Comment on above: Asthma, unspecified asthma severity, unspecified whether complicated, unspecified whether persistent (Primary Dx); Bilateral ovarian cysts; Moderate asthma with acute exacerbation, unspecified whether persistent; Encounter for preoperative pulmonary examination; Pulmonary nodule; Gastroesophageal reflux disease, unspecified whether esophagitis present Start: 03-20-2024 End: 03-20-2024 Preoperative state Mundo Martinez MD Work Phone: [facility] [email or web address] [facility] Start: 03-20-2024 End: 03-20-2024 Orders Only Mundo Martinez MD Work Phone: [facility] Gynecology Oncology, A Department of [facility] Comment on above: Bilateral ovarian cy sts (Primary Dx); Moderate asthma with acute exacerbation, unspecified whether persistent; Encounter for preoperative pulmonary examination Acute cough [R05.1] (Primary Dx) Start: 03-19-2024 End: 03-19-2024 Orders Only Mundo Martinez MD Work Phone: [facility] Gynecology Oncology, A Department of [facility] Comment on above: Bilateral ovarian cy sts (Primary Dx); Preop testing Start: 03-19-2024 End: 03-19-2024 Patient encounter status Mundo Martinez MD Work Phone: [facility] [email or web address] [facility] Start: 03-18-2024 End: 03-18-2024 Office outpatient new 60 minutes Mundo Martinez MD Work Phone: [facility] Gynecology Oncology, A Department of [facility] Comment on above: Cyst of [...] encounter Lamont Shay MD Work Phone: [facility] Start: 02-22-2024 End: 02-22-2024 Telephone encounter Sagar Barth APRN.CNP Work Phone: Neurology Headache [facility] Comment on above: Insurance Authorizat ion (Zolmitriptan) Start: 02-16-2024 End: 02-16-2024 ambulatory Lamont Shay Facility:[facility] Start: 02-09-2024 End: 02-09-2024 Office outpatient visit 25 minutes Lamont Shay MD Work Phone: [facility] Comment on above: Generalized abdomina l pain (Primary Dx); Intractable nausea and vomiting; Mild persistent asthma with (acute) exacerbation ([facility]) Start: 02-09-2024 End: 02-09-2024 ambulatory LAMONT SHAY Not Available Start: 01-31-2024 End: 02-02-2024 Clinisync Result Encounter Generic External Data Provider [facility] External Department Unsolicited Start: 01-31-2024 End: 02-02-2024 Clinisync Result Encounter Generic External Data Provider [facility] External Department Unsolicited Start: 01-29-2024 End: 01-30-2024 Telephone encounter Sagar Barth APRN.[employer] Work Phone: Neurology Headache [facility] Start: 01-24-2024 End: 01-24-2024 Orders [...] End: 01-22-2024 Patient encounter procedure Raiza Morales APRN.[employer] Work Phone: Neurology Comment on above: Chronic [...] Start: 01-16-2024 End: 01-16-2024 ambulatory Sagar Barth APRN.[employer] Work Phone: Neurology Headache [facility] Comment on above: Please help [...] Available Start: 12-05-2023 End: 12-05-2023 ambulatory Ольга Lantigua Harika PR INTERN.[employer] Work Phone: Neurology Comment on above: Intractable chronic migraine without aura and without status migrainosus (Primary Dx) Start: 12-05-2023 End: 12-05-2023 Telemedicine consultation with patient Ольга Arredondoler PR INTERN.[employer] CENTER AS[employer]BLER Work Phone: Neurology Start: 11-15-2023 End: 11-15-2023 [...] organisms (Primary Dx); Mixed bipolar I disorder ([facility]) Start: 11-15-2023 End: 11-15-2023 ambulatory LAMONT SHAY Not Available Start: 11-10-2023 End: 11-10-2023 Refill Curtis Lepe PA-C Work Phone: Neurology Comment on above: Refill Request Start: 11-06-2023 End: 11-06-2023 Orders Only Ronit Mustafa WASHER AND CRUSHER TENDER Work Phone: [facility] Comment on [...] BLAS Not Available Start: 09-19-2023 End: 09-19-2023 Patient encounter procedure Sagar Barth APRN.LIQUID CENTER ASSEMBLER Work Phone: Neurology [facility] Comment on above: Intractable chronic migraine without aura and without status migrainosus (Primary Dx) Start: 08-18-2023 End: 08-18-2023 Patient encounter procedure Curtis Lepe PA-C Work Phone: Neurology Comment on above: Intractable chronic migraine without aura and without status migrainosus (Primary Dx); Psychogenic nonepileptic seizure Start: 08-16-2023 ambulatory Sagar Barth APR, N.CNP Work Phone: Neurology [facility] Start: 08-16-2023 Subsequent hospital visit by physician Sagar Barth APRN.LIQUID CENTER ASSEMBLER Work Phone: Neurology [facility] Comment on above: Hospital visit Start: 08-08-2023 ambulatory Sagar Barth APR N.LIQUID CENTER ASSEMBLER Work Phone: Neurology [facility] Comment on above: Injection Start: 07-10-2023 End: 07-10-2023 ambulatory Sagar Barth PR INTERN.LIQUID CENTER ASSEMBLER Work Phone: Neurology [facility] Comment on above: Intractable chronic migraine without aura and without status migrainosus (Primary Dx) Start: 07-10-2023 End: 07-10-2023 Telemedicine consultation with patient Sagar Barth UMANG.LIQUID CENTER ASSEMBLER Work Phone: Neurology [facility] Start: 06-26-2023 ambulatory Ольга zazueta APRN.LIQUID CENTER ASSEMBLER Work Phone: Neurology Comment on above: Concern Headache Start: 04-14-2023 End: 04-14-2023 ambulatory Infusion Main Chair 7 Work Phone: Neurology Comment on above: Chronic migraine wit hout aura, with intractable migraine, so stated, with status migrainosus (Primary Dx); Intractable chronic migraine without aura and with status migrainosus Start: 04-14-2023 End: 04-14-2023 Patient encounter procedure Suzan Ivey APRN.LIQUID CENTER ASSEMBLER Work Phone: Neurology Comment on above: Intractable chronic migraine without aura and with status migrainosus (Primary Dx); Intractable chronic migraine without aura and without status migrainosus Start: 04-13-2023 Telephone encounter Sagar Barth APRN.LIQUID CENTER ASSEMBLER Work Phone: Neurology Comment on above: Appointment [...] End: 04-12-2023 Patient encounter procedure Suzan Ivey PR INTERN.LIQUID CENTER ASSEMBLER Work Phone: Neurology Comment on above: Intractable [...] 70MG/ML auto-injectors/) Start: 12-13-2022 Refill Sagar Barth APR N.LIQUID CENTER ASSEMBLER Work Phone: Neurology [facility] Comment on above: Refill Request Infusion (HEADACHE I NFUSIONS) Start: 12-09-2022 Refill Ольга J Brendan zazueta PR INTERN.LIQUID CENTER ASSEMBLER Work Phone: Neurology Comment on above: Refill Request Start: 11-11-2022 End: 11-11-2022 ambulatory Infusion Main Chair 8 Work Phone: Neurology Comment on above: Intractable chronic migraine without aura and with status migrainosus (Primary Dx) Start: 11-10-2022 End: 11-10-2022 ambulatory Ольга Aguilar PR INTERN.LIQUID CENTER ASSEMBLER Work Phone: Neurology Comment on above: Intractable chronic migraine without aura and with status migrainosus (Primary Dx) Nerve block Start: 11-10-2022 Telephone encounter Suzan dinero PR INTERN.LIQUID CENTER ASSEMBLER Work Phone: Neurology Comment on above: Infusion Start: 11-10-2022 End: 11-10-2022 Telemedicine consultation with patient Ольга Rhina Aguilar PR INTERN.LIQUID CENTER ASSEMBLER Work Phone: [facility] Start: 10-12-2022 ambulatory Suzan boyle PR INTERN.LIQUID CENTER ASSEMBLER Work Phone: Neurology Comment on above: Botox Start: 10-12-2022 E-mail encounter alexus m caregiver Suzan Ivey PR INTERN.LIQUID CENTER ASSEMBLER Work Phone: [facility] Start: 09-29-2022 Telephone encounter Angely rousseau RN Work Phone: [facility] Comment on above: Insurance Authorizat ion (Zomig 5MG nasal spray/) Start: 09-27-2022 ambulatory Sagar Barth APR N.LIQUID CENTER ASSEMBLER Work Phone: [facility] Comment on above: My apt Monday Start: 09-16-2022 ambulatory Sagar Barth APR N.LIQUID CENTER ASSEMBLER Work Phone: [facility] Start: 09-16-2022 Patient encounter procedure Cameronnisha Tab PR INTERN.LIQUID CENTER ASSEMBLER Work Phone: [facility]AC[facility] Comment on above: Appointment Start: 08-31-2022 End: 08-31-2022 ambulatory Sagar Barth PR INTERN.LIQUID CENTER ASSEMBLER Work Phone: Neurology Comment on above: Chronic migraine w/o aura, not intractable, w/o stat migr (Primary Dx) Start: 08-31-2022 End: 08-31-2022 Telemedicine consultation with patient Sagar Barth APRN.LIQUID CENTER ASSEMBLER Work Phone: [facility] Start: 08-09-2022 ambulatory Sagar Barth APR N.LIQUID CENTER ASSEMBLER Work Phone: [facility] Comment on above: Pain Start: 08-08-2022 End: 08-08-2022 ambulatory Jesse Borrego MD Work Phone: Neurology Comment on above: Intractable chronic migraine without aura and with status migrainosus (Primary Dx) Start: 08-08-2022 End: 08-08-2022 Telemedicine consultation with patient Jesse Borrego MD Work Phone: [facility] Start: 08-07-2022 ambulatory Jesse [...] preprocedural examination DR ZAY BLAS . [facility] [place] Start: 07-12-2022 End: 07-13-[address] ZAY BLAS . Facility:[facility] Start: 07-12-2022 End: 07-13-2022 Encounter for other preprocedural examination DR ZAY BLAS . Facility:[facility] Start: 07-05-2022 ambulatory KRISTOFER Nunn acility:[facility] Start: 06-27-2022 Telephone encounter Sagar Barth APRN.LIQUID CENTER ASSEMBLER Work Phone: Neurology Comment on above: Appointment [...] with patient Nelly Saldaña PA-C Work Phone: [facility] Start: 11-09-2021 ambulatory Tyrone Dolan MD, PhD Work Phone: [facility] Start: 11-09-2021 Patient encounter procedure Tyrone Dolan MD, PhD Work Phone: Neurology Comment on above: Request Georgianaido appoin tment Start: 11-08-2021 ambulatory Tyrone Dolan MD, PhD Work Phone: [facility] Start: 11-08-2021 Patient encounter [...] patient Tyrone Dolan MD, PhD Work Phone: [facility] Start: 10-26-2021 Patient encounter procedure Román Storey MD Work Phone: Neurology Comment on above: Seizure-like activit y (HCC) (Primary Dx) Start: 10-19-2021 End: 10-20-2021 Evaluation and management of inpatient LUCILA MOTA [facility] Start: 10-19-2021 End: 10-20-2021 Evaluation [...] laboratory examination DR ZAY BLAS . [facility] [place] Start: 09-29-2021 End: 09-30-[address] ZAY BLAS . Facility:[facility] Start: 09-29-2021 End: 09-30-2021 Encounter for preprocedural laboratory examination DR ZAY BLAS . Facility:[facility] Start: 09-21-2021 End: 09-22-[address] DERIK ARTHUR Facility:[facility] Start: 09-14-2021 End: 09-15-[address] DERIK ARTHUR Facility:[facility] Start: 08-14-2021 End: 08-14-2021 ambulatory ALBA GRACE Facility:[facility] Start: 08-14-2021 End: 08-14-2021 ambulatory ALBA GRACE Facility:[facility] Start: 12-24-2020 End: 12-24-2020 Emergency department patient visit DERIK ARTHUR [facility] Start: 12-24-2020 End: 12-24-2020 Emergency department patient visit Keven Ching DO Work Phone: [facility] ED Comment on above: Migraine without sta tus migrainosus, not intractable, unspecified migraine type (Primary Dx) Start: 02-18-2020 End: 02-18-2020 Telephone encounter Román Storey Work Phone: Neurology Comment on above: Future Appointment ( [place], [place], Any) Procedures Date Procedure Procedure Detail Performing Clinician Start: 07-24-2024 Adult depression scr eening assessment Halima Fulleruessler PR INTERN-LIQUID CENTER ASSEMBLER Work Phone: Start: 07-01-2024 Urnls dip stick/tabl et rgnt non-auto w/o micrscp Zay Roopa DO Work Phone: Start: 04-25-2024 Adult depression [...] stick/tabl et rgnt auto w/o microscopy Yordy Osmanvikas Melton DO Work Phone: Start: 04-08-2024 Culture [...] Culture bacterial blood aerobic w/id isolates Yordy Osmany Geronimo DO Work Phone: Start: 04-08-2024 Adult depression [...] Start: 10-20-2021 EEG VIDEO MONITORING Marcy Perez [facility] [employer]ley [employer] CENTER ASSEMBLER Work Phone: Start: 10-20-2021 BASIC METABOLIC PANE L W/ REFLEX TO MG FOR LOW K Puri Rikki Mota MD Work Phone: Start: 10-20-2021 Blood count complete auto&auto difrntl wbc Lo Perez PR INTERN [facility] Work Phone: Start: 10-20-2021 IMMATURE PLATELET FRACTION Lo Perez [facility] Work Phone: Start: 10-19-2021 Assay of lactate Uday Perez [facility] Work Phone: Start: 10-19-2021 Ecg routine ecg w/le ast 12 lds w/i&r Lo Perez PR INTERN [employer] Work Phone: Start: 10-19-2021 Mri brain brain stem w/o w/contrast material Lo Perez PR INTERN [facility] Work Phone: Start: 10-19-2021 RESPIRATORY CARE VERA LUATION ONLY Lo Perez PR INTERN [facility] Work Phone: Start: 10-01-2021 Resection of Bilater al Fallopian Tubes, Open Approach CHAYITO NARVAEZ . Start: 10-01-2021 Resection of Uterus, Open Approach CHAYITO NARVAEZ . Start: 12-24-2020 Blood count complete auto&auto difrntl wbc Keven Ching DO Work Phone: Start: 12-24-2020 Ct head/brain w/o co ntrast material Keven Ching DO Work Phone: Plan of Treatment Date Care Activity Detail Author Start: 10-24-2025 Adult BMI Screening Adult BMI Screen ing [facility] Start: 10-24-2025 Tobacco Screening Tobacco Screening [facility] Start: 09-20-2025 DTaP,Tdap and Td Vac cines (7 - Td or Tdap) DTaP,Tdap and Td Vaccines (7 - Td or Tdap) [facility] Start: 09-20-2025 DTaP/Tdap/Td vaccine (7 - Td or Tdap) DTaP/Tdap/Td vaccine (7 - Td or Tdap) [facility] Start: 09-20-2025 Urine microalbumin profile [facility] Start: 07-24-2025 Adult BMI Screening Adult BMI Screen ing [facility] Start: 07-24-2025 Depression Screening Depression Scre ening [facility] Start: 07-24-2025 Tobacco Screening Tobacco Screening [facility] Start: 06-06-2025 Tobacco Screening Tobacco Screening [facility] Start: 05-21-2025 Adult BMI Screening Adult BMI Screen ing [facility] Start: 05-21-2025 Tobacco Screening Tobacco Screening [facility] Start: 05-04-2025 Adult BMI Screening Adult BMI Screen ing [facility] Start: 05-04-2025 Tobacco Screening Tobacco Screening [facility] Start: 04-25-2025 Adult BMI Screening Adult BMI Screen ing [facility] Start: 04-25-2025 Depression Screening Depression Scre ening [facility] Start: 04-25-2025 Tobacco Screening Tobacco Screening [facility] Start: 04-24-2025 Adult BMI Screening Adult BMI Screen ing [facility] Start: 04-15-2025 Adult BMI Screening Adult BMI Screen ing [facility] Start: 04-08-2025 Depression Screening Depression Scre ening [facility] Start: 04-08-2025 Tobacco Screening Tobacco Screening [facility] Start: 03-28-2025 Adult BMI Screening Adult BMI Screen ing [facility] Start: 03-28-2025 Tobacco Screening Tobacco Screening [facility] Start: 03-25-2025 Adult BMI Screening Adult BMI Screen ing [facility] Start: 03-25-2025 Tobacco Screening Tobacco Screening [facility] Start: 03-20-2025 Adult BMI Screening Adult BMI Screen ing [facility] Start: 03-20-2025 Tobacco Screening Tobacco Screening [facility] Start: 03-18-2025 Adult BMI Screening Adult BMI Screen ing [facility] Start: 03-18-2025 Tobacco Screening Tobacco Screening [facility] Start: 01-02-2025 End: 01-02-2025 Patient encounter procedure 01/02/2025 11:15 AM EST Office Visit [facility] [address] [place] [phone] Corine Gold MD [address] [place], [place] [phone] [facility] Start: 12-17-2024 End: 12-17-2024 Patient encounter procedure 12/17/2024 9:30 AM EDT Office Visit [facility] [address] [phone] Vincent Peña DO [address] [address] [facility] Start: 10-25-2024 End: 10-25-2024 ambulatory 10/25/2024 1:30 PM EDT [facility] Neurology [address] [place] [address] [facility] Neurology Comment on above: [facility] Start: 10-21-2024 Influenza vaccination [facility] Start: 10-15-2024 End: 10-15-2024 Patient encounter procedure 10/15/2024 8:10 AM EDT Office Visit [facility] [address] [place] [address] Zay Blas, DO [address] [place] [address] [facility] Start: 09-24-2024 End: 09-24-2024 ambulatory 09/24/2024 10:00 AM EDT [facility] Neurology [address] [place], [place] [phone] Curtis Lepe PAClydeC [address] [place] [address] Head ache control Neurology Comment on above: Head ache control Start: 09-03-2024 End: 09-03-2024 Patient encounter procedure 09/03/2024 10:20 AM EDT Office Visit [facility] [address] [place] [phone] Zay Blas DO [address] [place] [address] Arrived [facility] Comment on above: Arrived Start: 08-20-2024 End: 08-20-2024 Patient encounter procedure 08/20/2024 9:15 AM EDT Office Visit Neurology [address] [place] [address] Patricia Franco PA-C [address] [place] [address] INFUSION DAY 3 Neurology Comment on above: INFUSION DAY 3 Start: 08-20-2024 End: 08-20-2024 ambulatory 08/20/2024 9:00 AM EDT [facility] [address] [place] [address] NON-DHE 3 Neurology Comment on above: NON-DHE 3 Start: 08-19-2024 End: 08-19-2024 ambulatory 08/19/2024 9:00 AM EDT [facility] [address] [place] [address] NON-DHE 2 Neurology Comment on above: NON-DHE 2 Start: 08-19-2024 End: 08-19-2024 Patient encounter procedure 08/19/2024 9:00 AM EDT Office Visit Neurology [address] [place] [address] Raiza Morales, PR INTERN.LIQUID CENTER ASSEMBLER [address] [place] [address] Infusion day Neurology Comment on above: Infusion day Start: 08-02-2024 End: 08-02-2024 Patient encounter procedure 08/02/2024 11:00 AM EDT Office Visit Neurology [address] [place] [phone] Curtis Lepe PA-C [address] [place] [address] INFUSION DAY 1 - PT ARRIVES AT 10AM Neurology Comment on above: INFUSION DAY 1 - PT ARRIVES AT 10AM Start: 08-02-2024 End: 08-02-2024 ambulatory 08/02/2024 10:00 AM EDT [facility] [address] [place] [phone] NON-DHE 1 per PS Neurology Comment on above: NON-DHE 1 per PS Start: 07-25-2024 End: 07-25-2024 ambulatory 07/25/2024 1:00 PM EDT [facility] [address] [place] [phone] [facility] Comment on above: [facility] Start: 07-01-2024 End: 07-01-2024 Patient encounter procedure 07/01/2024 8:30 AM EDT Office Visit [facility] [address] [place] [address] Zay Blas DO [address] [place] [address] Arrived [facility] Comment on above: Arrived Start: 06-10-2024 End: 06-10-2025 DNA ISOLATION AND STORAGE DNA ISOLATION AND STORAGE Lab Routine Family history of genetic disorder Expected: 06/10/2024 (Approximate), Expires: 06/10/2025 [facility] Comment on above: Expected: 06/10/2024 (Approximate), Expires: 06/10/2025 Start: 06-10-2024 End: 06-10-2025 GENETICS SPECIMEN LABEL- REQUIRED FOR INHOUSE GENETIC TESTING GENETICS SPECIMEN LABEL- REQUIRED FOR INHOUSE GENETIC TESTING Lab Routine Family history of genetic disorder Expected: 06/10/2024 (Approximate), Expires: 06/10/2025 [facility] Work Phone: Comment on above: Expected: 06/10/2024 (Approximate), Expires: 06/10/2025 Start: 06-06-2024 End: 06-06-2024 Telemedicine consultation with patient 06/06/2024 4:30 PM EDT Telemedicine [facility] [address] [place] [phone] Corine Gold MD [address], [place], [place] [phone] [facility] Start: 05-28-2024 End: 05-28-2024 Patient encounter procedure 05/28/2024 1:00 PM EDT Office Visit [facility] [address] [phone] Vincent Peña DO [address] [address] [facility] Start: 05-14-2024 End: 05-14-2024 Patient encounter procedure 05/14/2024 9:00 AM EDT Office Visit Joie Pradeep Antonio [facility] - Medical Oncology [address] [place] [phone] Svetlana Ye PA [address] [place] [address] Joie [facility] - Medical Oncology Start: 05-03-2024 End: 05-03-2024 ambulatory 05/03/2024 9:30 AM EDT [facility] Neurology [address] [place] [address] Curtis Lepe PA-C [address] [place], [place] [phone] Head aches adding something else Neurology Comment on above: Head aches adding so mething else Start: 05-02-2024 End: 05-02-2024 ambulatory 05/02/2024 2:30 PM EDT [facility] [address] [place] [address] [facility]pti infusion Neurology Comment on above: vyepti infusion Start: 04-30-2024 End: 04-30-2024 Patient encounter procedure 04/30/2024 9:00 AM EDT Office Visit Joie L [facility] - Medical Oncology [address] [place] [address] Svetlana Ye PA [address] [facility] [place] [address] [facility] - Medical Oncology Start: 04-25-2024 End: 04-25-2024 Patient encounter procedure 04/25/2024 1:00 PM EST [facility] [address] [place] [phone] Corine Gold MD [address] [place] [phone] [facility] Start: 04-16-2024 End: 04-16-2024 Patient encounter procedure 04/16/2024 8:30 AM EST Office Visit [facility] [address] [address] Zay Blas DO [address] [place] [address] [facility] Start: 04-15-2024 End: 04-15-2024 Patient encounter procedure 04/15/2024 9:00 AM EST Office Visit [facility] A Department of [facility] [address] [place] [phone] Svetlana Ye PA [address] [place] [address] [facility] Gynecology Oncology, A Department of [facility] Start: 04-10-2024 End: 04-10-2024 Patient encounter procedure 04/10/2024 11:30 AM EST Office Visit Joie Antonio [facility] - Medical Oncology [address] [place] [phone] Svetlana Ye PA [address] [place] [address] [facility] - Medical Oncology Start: 04-10-2024 End: 04-10-2024 Professional / ancillary services management 04/10/2024 9:30 AM EST Ancillary Procedure [facility] [address] [phone] [facility] Start: 03-29-2024 End: 03-29-2024 ambulatory 03/29/2024 1:30 PM EST Infusion Center Neurology [address] [place] [address] [facility] infusion Neurology Comment on above: vyepti infusion Start: 03-28-2024 End: 03-28-2024 Admission to same day surgery center 03/28/2024 9:00 AM EST - 03/28/2024 12:45 PM EST Surgery [facility] - Surgery [facility] [place] [address] Mundo Martinez MD [address] [place] [address] DAVINCI LYSIS OF ADHESIONS [facility] - Surgery Comment on above: DAVINCI LYSIS OF ADH ESIONS Start: 03-28-2024 End: 03-28-2024 DAVINCI LYSIS OF ADHESIONS DAVINCI LYSIS OF ADHESIONS OVARIAN CYST BILATERAL 03/28/2024 9:00 AM EST [facility] Start: 03-28-2024 End: 03-28-2024 DAVINCI SALPINGO OOPHORECTOMY DAVINCI SALPINGO OOPHORECTOMY OVARIAN CYST BILATERAL 03/28/2024 9:00 AM EST [facility] Start: 03-28-2024 Subsequent hospital visit by physician 03/28/2024 9:00 AM EST Hospital Encounter [facility] Surgery [address] [place] [address] Mundo Martinez MD [address] [place] [address] [facility] - Surgery Start: 03-25-2024 End: 03-25-2024 Patient encounter procedure 03/25/2024 2:15 PM EST Procedure visit [facility] On [address] [phone] [facility] On [facility] Start: 03-22-2024 End: 03-22-2024 ambulatory 03/22/2024 1:30 PM EST Infusion [facility] Neurology [address] [place] [phone] [facility] infusion Neurology Comment on above: [facility]pti infusion Start: 03-20-2024 End: 03-20-2025 CT Chest WO contrast CT chest without contrast Imaging Routine Moderate asthma with acute exacerbation, unspecified whether persistent Expected: 03/20/2024, Expires: 03/20/2025 [facility] Work Phone: Comment on above: Expected: 03/20/2024 , Expires: 03/20/2025 Start: 02-28-2024 End: 02-27-2025 AFP tumor marker AFP tumor marker Lab Routine Complex ovarian cyst Expected: 02/28/2024 (Approximate), Expires: 02/27/2025 [facility] Comment on above: Expected: 02/28/2024 (Approximate), Expires: 02/27/2025 Start: 02-28-2024 End: 02-27-2025 CA 125 CA 125 Lab Routine Complex ovarian cyst Expected: 02/28/2024 (Approximate), Expires: 02/27/2025 [facility] Comment on above: Expected: 02/28/2024 (Approximate), Expires: 02/27/2025 Start: 02-28-2024 End: 02-27-2025 Carcinoembryonic Ag [Mass/volume] in Serum or Plasma CEA Lab Routine Complex ovarian cyst Expected: 02/28/2024 (Approximate), Expires: 02/27/2025 [facility] Comment on above: Expected: 02/28/2024 (Approximate), Expires: 02/27/2025 Start: 02-28-2024 End: 02-27-2025 HCG, tumor marker HCG, tumor marker Lab Routine Complex ovarian cyst Expected: 02/28/2024 (Approximate), Expires: 02/27/2025 [facility] Comment on above: Expected: 02/28/2024 (Approximate), Expires: 02/27/2025 Start: 02-28-2024 End: 02-27-2025 Lactate dehydrogenase, isoenzymes Lactate dehydrogenase, isoenzymes Lab Routine Complex ovarian cyst Expected: 02/28/2024 (Approximate), Expires: 02/27/2025 [facility] Work Phone: Comment on above: Expected: 02/28/2024 (Approximate), Expires: 02/27/2025 Start: 02-28-2024 End: 02-27-2025 US Pelvis US Pelvis w/ TV Imaging Routine Pelvic pain in female Complex ovarian cyst Expected: 02/28/2024, Expires: 02/27/2025 [facility] Comment on above: Expected: 02/28/2024 , Expires: 02/27/2025 Start: 02-28-2024 End: 02-28-2024 Patient encounter procedure 02/28/2024 11:10 AM EST Office Visit [facility] [address] [place] [phone] Zay Blas DO [address] [place] [address] [facility] Start: 02-22-2024 End: 02-22-2024 Patient encounter procedure 02/22/2024 11:15 AM EST Office Visit [facility] [address] [place] [address] Lamont Shay MD [address] [place] [address] [facility] Start: 02-09-2024 End: 02-08-2025 CT Abdomen and Pelvis WO and W contrast IV CT abdomen pelvis w and wo IV contrast Imaging Routine Generalized abdominal pain Intractable nausea and vomiting Expected: 02/09/2024, Expires: 02/08/2025 [facility] Work Phone: Comment on above: Expected: 02/09/2024 , Expires: 02/08/2025 Start: 02-05-2024 End: 02-05-2024 ambulatory 02/05/2024 1:45 PM EST [facility] Neurology [facility] [address] [place] [address] Sagar Barth APRN.LIQUID CENTER ASSEMBLER [address] [place] [address] [facility] Comment on above: [facility] Start: 01-24-2024 End: 01-24-2024 Patient encounter procedure 01/24/2024 3:20 PM EST Office Visit [facility] [address] [facility] [place] [address] Zay Blas, [address] [place] [address] [facility] Start: 01-23-2024 End: 01-22-2025 Basic metabolic 1998 panel - Serum or Plasma Basic metabolic panel Lab Routine Generalized edema Expected: 01/23/2024 (Approximate), Expires: 01/22/2025 [facility] Comment on above: Expected: 01/23/2024 (Approximate), Expires: 01/22/2025 Start: 01-23-2024 End: 01-22-2025 CBC W Auto Differential panel - Blood CBC and differential Lab Routine Generalized edema SOB (shortness of breath) on exertion Expected: 01/23/2024 (Approximate), Expires: 01/22/2025 [facility] Comment on above: Expected: 01/23/2024 (Approximate), Expires: 01/22/2025 Start: 01-23-2024 End: 01-22-2025 Hepatic function 2000 panel - Serum or Plasma Hepatic function panel Lab Routine Generalized edema SOB (shortness of breath) on exertion Expected: 01/23/2024 (Approximate), Expires: 01/22/2025 [facility] Comment on above: Expected: 01/23/2024 (Approximate), Expires: 01/22/2025 Start: 01-23-2024 End: 01-22-2025 Natriuretic peptide B [Mass/volume] in Blood B-type natriuretic peptide Lab Routine Generalized edema Expected: 01/23/2024 (Approximate), Expires: 01/22/2025 [facility] Comment on above: Expected: 01/23/2024 (Approximate), Expires: 01/22/2025 Start: 01-23-2024 End: 01-22-2025 XR Chest 2 Views XR chest 2 views Imaging Routine Mild persistent asthma with (acute) exacerbation (CMS/HCC) Generalized edema SOB (shortness of breath) on exertion Expected: 01/23/2024, Expires: 01/22/2025 [facility] Work Phone: Comment on above: Expected: 01/23/2024 , Expires: 01/22/2025 Start: 01-23-2024 End: 01-23-2024 Patient encounter procedure [facility] Comment on above: Arrived Start: 01-22-2024 End: 01-22-2024 Patient encounter procedure 01/22/2024 2:30 PM EST Office Visit Neurology [address] [place] [address] Raiza Morales APRN.LIQUID CENTER ASSEMBLER [address] [place] [address] Infusion Day #3 Neurology Comment on above: Infusion Day #3 Start: 01-22-2024 End: 01-22-2024 ambulatory 01/22/2024 2:00 PM EST Infusion Center Neurology [address] [place] [address] Non-DHE Infusion Day #3 Neurology Comment on above: Non-DHE Infusion Day #3 Start: 01-19-2024 End: 01-19-2024 ambulatory 01/19/2024 9:30 AM EST Infusion Center Neurology [address] [place] [address] Non-DHE Infusion Day #2 Neurology Comment on above: Non-DHE Infusion Day #2 Start: 01-09-2024 End: 01-09-2024 Patient encounter procedure [facility] Comment on above: Arrived Start: 01-05-2024 End: 01-05-2024 ambulatory 01/05/2024 1:00 PM EST Infusion Center Neurology [address] [place] [address] [facility] Comment on above: [facility] Start: 12-12-2023 End: 12-12-2023 Patient encounter procedure 12/12/2023 3:45 PM EDT Office Visit [facility] [address] [place] [phone] Lamnot Shay MD [address] [place] [id number] [facility] Start: 12-11-2023 End: 12-11-2023 Patient encounter procedure 12/11/2023 1:00 PM EDT Office Visit [facility] [address] [place] [address] Zay Blas DO [address] [facility] [address] [place] [address] Arrived [facility] Comment on above: Arrived Start: 11-15-2023 End: 11-15-2023 Patient encounter procedure 11/15/2023 8:45 AM EDT Office Visit [facility] [address] [place] [phone] Lamont Shay MD [address] [place] [address] Arrived [facility] Comment on above: Arrived Start: 11-06-2023 End: 11-06-2023 Patient encounter procedure 11/06/2023 11:30 AM EDT Office Visit [facility] NEUR [address] [facility] [address] [place] [address] Jose Martin Lopez MD [address] [facility] [address] [id number] [facility] NE[facility] Start: 10-31-2023 End: 10-31-2023 Patient encounter procedure 10/31/2023 2:30 PM EDT Office Visit Neurology [address] [place] [phone] Tyrone Dolan MD, PhD [address] [facility] [address] [place] [address] Seizure Neurology Comment on above: Seizure Start: 10-22-2023 Covid-19 Vaccine ( season) Covid-19 Vaccine ( season) [facility] Start: 10-22-2023 Covid-19 Vaccine ( season) Covid-19 Vaccine ( season) [facility] Start: 10-22-2023 Influenza vaccination C [facility] Start: 10-13-2023 End: 10-13-2023 ambulatory 10/13/2023 1:00 PM EDT Infusion Center Neurology [address] [place] [id number] [facility] Neu[facility] Comment on above: [facility] Start: 10-10-2023 End: 10-10-2023 Patient encounter procedure 10/10/2023 9:15 AM EDT Office Visit [facility] [address] [place] [address] Lamont Shay MD [address] [place] [address] Arrived [facility] Comment on above: Arrived Start: 09-19-2023 End: 09-19-2023 Patient encounter procedure 09/19/2023 2:30 PM EDT Office Visit Neurology [facility] [address] [place] [address] Sagar Barth APRN.[employer]QU[employer] CENTER ASSEMBLER [address] [place] [address] Migraines Nerve Block Neurology [facility] Comment on above: Migraines Nerve Bloc k Start: 08-18-2023 End: 08-18-2023 Patient encounter procedure 08/18/2023 9:30 AM EDT Office Visit Neurology [address] [place] [address] Curtis Lepe PA-C [address] [place] [address] NERVE BLOCK Neurology Comment on above: NERVE BLOCK Start: 03-03-2023 Depression Screening Depression [facility] Start: 02-20-2023 Depression Assessment Depression Ass [facility] Start: 10-29-2022 Adult depression scr eening assessment DEPRESSION SCREENING [facility] Start: 10-21-2022 Covid-19 Vaccine ( season) Covid-19 Vaccine ( season) [facility] Start: 10-21-2022 Influenza vaccination C [facility] Start: 02-20-2022 [facility] Start: 10-26-2021 End: 10-26-2022 SARS-CoV-2 (COVID-19) RNA [Presence] in Respiratory specimen by SAURABH with probe detection PRE-PROCEDURE & PRE-OPERATIVE COVID Microbiology Routine Seizure-like activity (HCC) Expected: 10/26/2021, Expires: 10/26/2022 [facility] Work Phone: Comment on above: Expected: 10/26/2021 , Expires: 10/26/2022 Start: 10-21-2021 Influenza vaccination [facility] Start: 02-20-2021 DEPRESSION ASSESSMENT DEPRESSION ASS ESSMENT [facility] Start: 10-21-2020 Influenza vaccination Flu vaccine (# 1) [employer] Phone: Start: 11-13-2016 PAP TESTING PAP TESTING [facility] Start: 11-13-2016 Screening for malign ant neoplasm of cervix [facility] Start: 11-13-2014 Hepatitis B Vaccine (1 of 3 - 19+ 3-dose series) Hepatitis B Vaccine (1 of 3 - 19+ 3-dose series) [facility] Start: 11-13-2014 Urine microalbumin profile [facility] Start: 11-13-2013 Adult BMI Follow Up Plan Adult BMI Follow Up Plan [facility] Start: 11-13-2013 Anxiety Screening Anxiety Screening [facility] Start: 11-13-2013 Depression Screening Depression Scre ening [facility] Start: 11-13-2013 Hepatitis C screening [facility] Start: 11-13-2013 HEPATITIS C SCREENING HEPATITIS C SC REENING [facility] Start: 11-13-2013 HIV SCREENING HIV SCREENING [facility] Start: 11-13-2013 HIV screening HIV Screening [facility] Start: 2011 Screening for Chlamy rose trachomatis Chlamydia screen [facility] Start: 11-13-2010 HIV screening HIV screen [facility] Start: 11-13-2009 PEDS TO ADULT TRANSI TION ANNUAL ASSESSMENT PEDS TO ADULT TRANSITION ANNUAL ASSESSMENT [facility] Start: 11-13-2008 Varicella Vaccine (1 of 2 - 13+ 2-dose series) Varicella Vaccine (1 of 2 - 13+ 2-dose series) [facility] Start: 2007 Adult depression scr eening assessment DEPRESSION SCREENING [facility] Start: 2007 COVID-19 Vaccine (1) COVID-19 Vaccin e (1) [employer] Phone: Start: 2007 Depression Screen Depression [facility] Start: 2007 PEDS TO ADULT TRANSI TION INITIAL DISCUSSION PEDS TO ADULT TRANSITION INITIAL DISCUSSION [facility] Start: 11-13-2006 HPV VACCINE (1 - 2-d ose series) HPV VACCINE (1 - 2-dose series) [facility] Start: 11-13-2004 HPV VACCINE (1 - 2-d ose series) HPV VACCINE (1 - 2-dose series) [facility] Start: 11-13-2002 DTaP/Tdap/Td Vaccine (1 - Tdap) DTaP/Tdap/Td Vaccine (1 - Tdap) [facility] Start: 11-13-1996 MMR Vaccine (1 of 1 - Standard series) MMR Vaccine (1 of 1 - Standard series) [facility] Start: 05-13-1996 COVID-19 Vaccine (#1) COVID-19 Vacci ne (#1) [facility] Start: 1995 HEPATITIS B (1 of 3 - 3-dose series) HEPATITIS B (1 of 3 - 3-dose series) [facility] Start: 1995 Hepatitis B Vaccine (1 of 3 - 3-dose series) Hepatitis B Vaccine (1 of 3 - 3-dose series) [facility] Start: 1995 Hepatitis C screening Hepatitis C [facility] Work Phone: End: 03-20-2025 Qjdjw-9-Ouzajrcjsqx Phenotype Sbmdh-2-Gzvnrllgbdv Phenotype Lab Routine Moderate asthma with acute exacerbation, unspecified whether persistent 1 Occurrences starting 03/20/2024 until 03/20/2025 [facility] Comment on above: 1 Occurrences starti ng 03/20/2024 until 03/20/2025 Jfvvw-4-Oxqckneybfg Phenotype Mtypw-3-Jqsedrgvisv Phenotype Lab Routine Moderate asthma with acute exacerbation, unspecified whether persistent 03/20/2024 1:12 PM EST [facility] Bacteria identified in Blood by Aerobe culture [facility] Work Phone: Bacteria identified in Urine by Culture URINE CULTURE, ROUTINE Lab Routine 01/31/2024 11:57 AM EST [facility] Bacteria identified in Wound by Aerobe culture Wound culture superficial includes gram stain Microbiology Routine 04/08/2024 8:25 PM EST [employer] Phone: End: 10-26-2021 Basic Metabolic Panel w/ Reflex to MG Basic Metabolic Panel w/ Reflex to MG Lab Routine Daily for 7 Days starting 10/20/2021 until 10/26/2021 [facility] Work Phone: Comment on above: Daily for 7 Days sta rting 10/20/2021 until 10/26/2021 End: 10-26-2021 CBC W Auto Differential panel - Blood CBC with Auto Differential Lab Routine Daily for 7 Days starting 10/20/2021 until 10/26/2021, 1 completed [facility] Work Phone: Comment on above: Daily for 7 Days sta rting 10/20/2021 until 10/26/2021, 1 completed End: 05-02-2025 CBC W Auto Differential panel - Blood CBC with auto diff Lab Routine Postoperative infection, unspecified type, subsequent encounter 1 Occurrences starting 05/02/2024 until 05/02/2025 [facility] Work Phone: Comment on above: 1 Occurrences starti ng 05/02/2024 until 05/02/2025 CHLAMYDIA TRACHOMATI S (GENITO/STI) CHLAMYDIA TRACHOMATIS (GENITO/STI) Lab Routine Yeast infection Ordered: 07/01/2024 [employer] Comment on above: Ordered: 07/01/2024 End: 05-02-2025 Comprehensive metabolic 2000 panel - Serum or Plasma Comprehensive metabolic panel Lab Routine Postoperative infection, unspecified type, subsequent encounter 1 Occurrences starting 05/02/2024 until 05/02/2025 [facility] Comment on above: 1 Occurrences starti ng 05/02/2024 until 05/02/2025 Cytology Cervical or vaginal smear or scraping study Pap Smear Pathology and Cytology Routine Well woman exam with routine gynecological exam Ordered: 04/16/2024 [employer] Work Phone: Comment on above: Ordered: 04/16/2024 End: 03-19-2025 ECG 12 lead ECG 12 lead ECG Routine Bilateral ovarian cysts Preop testing 1 Occurrences starting 03/19/2024 until 03/19/2025 [employer] Work Phone: Comment on above: 1 Occurrences starti ng 03/19/2024 until 03/19/2025 EKG 12 Lead EKG 12 Lead ECG Routine 10/19/2021 5:55 PM EDT [facility] Work Phone: End: 10-29-2022 EPIL AMBULATORY EEG EPIL AMBULATORY EEG NEUROLOGY Routine Psychogenic nonepileptic seizure Spells of trembling 1 Occurrences starting 10/29/2021 until 10/29/2022 [facility] Work Phone: Comment on above: 1 Occurrences starti ng 10/29/2021 until 10/29/2022 End: 10-26-2022 EPIL EEG LEAD PLACEMENT EPIL EEG LEAD PLACEMENT NEUROLOGY Routine Seizure-like activity (HCC) 1 Occurrences starting 10/26/2021 until 10/26/2022 [facility] Work Phone: Comment on above: 1 Occurrences starti ng 10/26/2021 until 10/26/2022 End: 11-08-2022 EPIL EEG ROUTINE EPIL EEG ROUTINE NEUROLOGY Routine Seizure-like activity (HCC) 1 Occurrences starting 11/08/2021 until 11/08/2022 [facility] Work Phone: Comment on above: 1 Occurrences starti ng 11/08/2021 until 11/08/2022 EPIL VEEG ADMIT TO EMU/PMU EPIL VEEG ADMIT TO EMU/PMU NEUROLOGY Routine Seizure-like activity (HCC) Ordered: 10/26/2021 [facility] Work Phone: Comment on above: Ordered: 10/26/2021 Neisseria gonorrhoea e DNA [Presence] in Unspecified specimen by SAURABH with probe detection Neisseria gonorrhea DNA probe, direct Lab Routine Yeast infection Ordered: 07/01/2024 [employer] Comment on above: Ordered: 07/01/2024 Oxygen therapy [[facility] Data Set] Initiate Oxygen Therapy Protocol Respiratory Care Routine As Needed until discontinued starting 10/19/2021 [facility] Work Phone: Comment on above: As Needed until disc ontinued starting 10/19/2021 SURESWAB(R) ADVANCED VAGINITIS PLUS, TMA SURESWAB(R) ADVANCED VAGINITIS PLUS, TMA Pathology and Cytology Routine Yeast infection Ordered: 07/01/2024 [facility] Work Phone: Comment on above: Ordered: 07/01/2024 End: 03-19-2025 Type and screen(includes indirect ady) Type and screen(includes indirect ady) Blood Bank Routine Bilateral ovarian cysts Preop testing 1 Occurrences starting 03/19/2024 until 03/19/2025 [facility] Comment on above: 1 Occurrences starti ng 03/19/2024 until 03/19/2025 [facility] Immunizations Immunization Date Immunization Notes Care Provider Preethi black 12-08-2017 Influenza, injectabl e, Madin Shivani Canine Kidney, preservative free, quadrivalent Mundo Martinez MD Work Phone: [facility] 12-08-2017 influenza virus vacc ine, unspecified formulation Suzan Ivey PR INTERN.LIQUID CENTER ASSEMBLER Work Phone: [facility] 12-31-2015 influenza, seasonal, injectable, preservative free Mundo Martinez MD Work Phone: [facility] 12-31-2015 influenza virus vacc ine, unspecified formulation Viktoria Walton MS, [facility] Work Phone: [facility] 09-21-2015 tetanus toxoid, redu ailyn diphtheria toxoid, and acellular pertussis vaccine, adsorbed Mundo Martinez MD Work Phone: [facility] 11-27-2014 influenza, seasonal, injectable, preservative free Mundo Martinez MD Work Phone: [facility] 10-23-2012 influenza, seasonal, injectable, preservative free Mundo Martinez MD Work Phone: [facility] 05-22-2012 human papilloma viru s vaccine, quadrivalent Mundo Martinez MD Work Phone: [facility] 01-20-2012 human papilloma viru s vaccine, quadrivalent Mundo Martinez MD Work Phone: [facility] 11-15-2011 human papilloma viru s vaccine, quadrivalent Mundo Martinez MD Work Phone: [facility] 11-15-2011 influenza, seasonal, injectable, preservative free Mundo Martinez MD Work Phone: [facility] 11-15-2011 meningococcal polysaccharide (groups A, C, Y and W-135) diphtheria toxoid conjugate vaccine (MCV4P) Mundo Martinez MD Work Phone: [facility] 11-15-2011 varicella virus vaccine Eloina Martinez MD Work Phone: [facility] 10-25-2002 hepatitis B vaccine, pediatric or pediatric/adolescent dosage Mundo Martinez MD Work Phone: [facility] 10-25-2002 varicella virus vaccine Eloina Martinez MD Work Phone: [facility] 09-07-2001 diphtheria, tetanus toxoids and acellular pertussis vaccine Mundo Martinez MD Work Phone: [facility] 09-07-2001 measles, mumps and rubella virus vaccine Mundo Martinez MD Work Phone: [facility] 09-07-2001 poliovirus vaccine, inactivated Mundo Martinez MD Work Phone: [facility] 03-05-1997 diphtheria, tetanus toxoids and acellular pertussis vaccine, Haemophilus influenzae type b conjugate, and poliovirus vaccine, inactivated ([id number]) Mundo Martinez MD Work Phone: [facility] 03-05-1997 measles, mumps and rubella virus vaccine Mundo Martinez MD Work Phone: [facility] 07-05-1996 diphtheria, tetanus toxoids and acellular pertussis vaccine, Haemophilus influenzae type b conjugate, and poliovirus vaccine, inactivated ([id number]) Mundo Martinez MD Work Phone: [facility] 05-06-1996 diphtheria, tetanus toxoids and acellular pertussis vaccine, Haemophilus influenzae type b conjugate, and poliovirus vaccine, inactivated ([id number]) Mundo Martinez MD Work Phone: [facility] 05-06-1996 hepatitis B vaccine, pediatric or pediatric/adolescent dosage Mundo Martinez MD Work Phone: [facility] 01-15-1996 diphtheria, tetanus toxoids and acellular pertussis vaccine, Haemophilus influenzae type b conjugate, and poliovirus vaccine, inactivated ([id number]) Mundo Martinez MD Work Phone: [facility] 1995 hepatitis B vaccine, pediatric or pediatric/adolescent dosage Mundo Martinez MD Work Phone: [facility] 1995 hepatitis B vaccine, pediatric or pediatric/adolescent dosage Mundo Martinez MD Work Phone: [facility] Payers Date Payer Category Payer Medicaid (Managed Care) [employer] [id number] 2022 Self-pay 2017 Medicaid [employer] [id number] 2017-Present Medicaid [id number] 2016 Medicaid HMO [employer] [id number] 2013 Medicaid [id number]. [id number] 2011 Unknown 1995 Unknown [id number] 2.16.840.1.575843.3.579.2. 173 1995 Unknown [id number] 2.16.840.1.295366.3.579.2. 175 1995 Unknown [id number] 2.16.840.1.642721.3.579.2. 727 1995 Unknown [id number] 2.16.840.1.301338.3.579.2. 593 1995 Unknown [id number] 2.16.840.1.434882.3.579.2. 593 1995 Unknown [id number] 2.16.840.1.303720.3.579.2. 593 1995 Unknown [id number] 2.16.840.1.858122.3.579.2. 593 1995 Unknown [id number] 2.16.840.1.179440.3.579.2. 593 1995 Unknown [id number] 2.16.840.1.195933.3.579.2. 593 1995 Unknown [id number] 2.16.840.1.049427.3.579.2. 593 1995 Unknown [id number] 2.16.840.1.909863.3.579.2. 593 1995 Unknown [id number] 2.16.840.1.733956.3.579.2. 593 1995 Unknown [id number] 2.16.840.1.581041.3.579.2. 593 1995 Unknown [id number] 2.16.840.1.804937.3.579.2. 593 1995 Unknown [id number] 2.16.840.1.382473.3.579.2. 593 1995 Unknown [id number] 2.16.840.1.893526.3.579.2. 593 1995 Unknown [id number] 2.16.840.1.081751.3.579.2. 593 1995 Unknown [id number] 2.16.840.1.949972.3.579.2. 593 1995 Unknown [id number] 2.16.840.1.615981.3.579.2. 593 1995 Unknown [id number] 2.16.840.1.127516.3.579.2. 593 1995 Unknown [id number] 2.16.840.1.728521.3.579.2. 593 1995 Unknown [id number] 2.16.840.1.612953.3.579.2. 593 1995 Unknown [id number] 2.16.840.1.960153.3.579.2. 593 1995 Unknown [id number] 2.16.840.1.400310.3.579.2. 593 1995 Unknown [id number] 2.16.840.1.224282.3.579.2. 593 1995 Unknown [id number] 2.16.840.1.586000.3.579.2. 1258 1995 Unknown [id number] 2.16.840.1.030341.3.579.2. 1258 1995 Unknown [id number] 2.16.840.1.101661.3.579.2. 1258 1995 Unknown [id number] 2.16.840.1.258723.3.579.2. 1258 1995 Unknown [id number] 2.16.840.1.814580.3.579.2. 1258 1995 Unknown [id number] 2.16840.1.680771.3.579.2. 1258 1995 Unknown [id number] 2.16.840.1.726817.3.579.2. 1258 1995 Unknown [id number] 2.16.840.1.233446.3.579.2. 1258 1995 Unknown [id number] 2.16.840.1.254071.3.579.2. 1258 1995 Unknown [id number] 2.16.840.1.192081.3.579.2. 1258 1995 Unknown [id number] 2.16.840.1.366462.3.579.2. 1258 1995 Unknown [id number] 2.16.840.1.996130.3.579.2. 1258 1995 Unknown [id number] 2.16.840.1.467791.3.579.2. 9 1959 Unknown [id number] 1.2.840.269211.1.13.239.2. 7.3.992322.315 Unknown [id number] 2.16.840.1.980441.3.579.2. 531 Social History Date Type Detail Facility Tobacco smoking stat [facility] Unknown if ever smoked [facility] Start: 1995 Sex Assigned At Not on file [facility] Start: 12-24-2020 End: 12-29-2021 Tobacco smoking status NHIS Never smoker [employer] Phone: Start: 12-24-2020 End: 12-29-2021 Tobacco use and exposure Never used [employer] Start: 12-24-2020 End: 10-24-2024 Alcohol intake Ex-drinker (finding) [employer] Phone: Start: 10-16-2021 End: 07-28-2022 Exposure to SARS-CoV-2 (event) Not sure [email or web address] Tobacco smoking stat [facility] Tobacco smoking consumption unknown [facility] Work Phone: Start: 03-03-2020 End: 08-08-2022 History of Social function [facility] Start: 03-03-2020 End: 08-08-2022 Patient Health Questionnaire 2 item (PHQ-2) [Reported] [facility] Adult Depression Screening Assessment 2 [facility] Start: 11-15-2023 End: 07-01-2024 Alcoholic beverage intake Lifetime non-drinker (finding) [facility] Start: 07-31-2022 Alcohol Comment Caffeine intak e: >4 cups per day [facility] Do you belong to any clubs or organizations such as zoroastrianism groups, unions, fraternal or athletic groups, or [...] [facility] Start: 09-25-2014 Sex Female (finding) [facility] How often to you hav e a drink containing alcohol? Monthly or less [facility] How many standard drinks containing alcohol do you have on a typical day? 1 or 2 [facility] Start: 04-08-2024 Alcohol Comment social [facility] NEGATED: Highlighted rowStart: NINF History of tobacco use Passive smoker [facility] Goals Date Patient Goal Desired Activity /State Personal health goal Comment on above: Formatting of this n ote might be different from the original. Evaluation of progress towards goal: Patient stated goal is to return home with [facility] for assistance with wound care Functional Status Date Assessment Result Facility 04-01-2022 Are you deaf, or do you have serious difficulty hearing No 04/01/2022 6:20 PM Katie Florez, PRATIBHA No [facility] 04-01-2022 Are you blind, or do you have serious difficulty seeing, even when wearing glasses No 04/01/2022 6:20 PM Katie Florez, PRATIBHA No [facility] 04-01-2022 Do you have serious difficulty walking or climbing stairs No 04/01/2022 6:20 PM Katie Florez, PRATIBHA No [facility] 04-01-2022 Do you have difficul ty dressing or bathing No 04/01/2022 6:20 PM Katie Florez, RN No [facility] 04-01-2022 Because of a physica l, mental, or emotional condition, do you have difficulty doing errands alone such as visiting a physician's office or shopping No 04/01/2022 6:20 PM Katie Florez, PRATIBHA No [facility] Mental Status Date Assessment Result Facility 04-01-2022 Because of a physica l, mental, or emotional condition, do you have serious difficulty concentrating, remembering, or making decisions No 04/01/2022 6:20 PM Katie Florez, PRATIBHA No [facility] Clinical Notes 12-24-2020 to 11-26-2024 Mali Hart APRN-LIQUID CENTER ASSEMBLER - 10/24/2024 2:40 PM EDTYumiko Worrell, CAROLYN - 09/03/2024 10:20 AM EDTTelephone Encounter - Shelley Akpradeep - 08/26/2024 9:19 AM EDTPatient InstructionsPatient InstructionsAttachments Note Date & Type Note Facility 11-26-2024 Note HNO ID: [id number] Author: RAIZA MORALES APRN.FADY Service: ? Author Type: Nurse Practitioner Type: Progress Notes Filed: 11/26/2024 13:56 Note Text: Patient was incorrectly scheduled; Was told to establish care with MD, I will have scheduling team reach out and assist patient in getting set up with Physician. Appointment cancelled, no charge. Raiza Morales APRN.FADY [facility] 10-24-2024 History of Present illness Narrative Subjective Patient ID: April Nicholson is a 28 y.o. female. CINTHIA Newberry presents to the office for sick visit. She reports she woke up Monday night with facial pressure, congestion, cough, shortness of breath, headache, left ear pain, runny nose, post nasal drip, and fatigue. She reports no fever and she is unsure about chills as she is having menopausal symptoms since having her hysterectomy. She reports symptoms continue to worsen since Monday. She denies any new sick contacts however her daughter did have strep and hand foot and mouth a few weeks ago. The following portions of the patient's history were reviewed and updated as appropriate: allergies, current medications, past family history, past medical history, past social history, past surgical history, problem list, and medication reconciliation was completed including current medication and post discharge medication. Review of Systems Constitutional: Positive for fatigue and unexpected weight change (Encouraged to schedule follow up appointment to discuss weight gain). HENT: Positive for congestion, ear pain, postnasal drip, rhinorrhea and sinus pressure. Respiratory: Positive for cough (Reports she has phlegm but is unable to produce it) and shortness of breath. Cardiovascular: Negative. Objective Physical Exam Vitals and nursing note reviewed. Constitutional: General: She is not in acute distress. Appearance: Normal appearance. She is not ill-appearing. HENT: Head: Normocephalic and atraumatic. Right Ear: Tympanic membrane, ear canal and external ear normal. Left Ear: Ear canal and external ear normal. Tympanic membrane is erythematous. Nose: Right Sinus: Maxillary sinus tenderness and frontal sinus tenderness present. Left Sinus: Maxillary sinus tenderness and frontal sinus tenderness present. Mouth/Throat: Pharynx: Posterior oropharyngeal erythema present. No oropharyngeal exudate. Cardiovascular: Rate and Rhythm: Normal rate and regular rhythm. Pulses: Normal pulses. Heart sounds: No murmur heard. Pulmonary: Breath sounds: Wheezing present. Musculoskeletal: Cervical back: Normal range of motion. Lymphadenopathy: Cervical: No cervical adenopathy. Skin: Capillary Refill: Capillary refill takes less than 2 seconds. Findings: No erythema or rash. Neurological: General: No focal deficit present. Mental Status: She is alert. Psychiatric: Mood and Affect: Mood normal. Behavior: Behavior normal. Assessment/Plan I will treat left otitis media with amoxicillin as she reports she has tolerated this medication well in the past. I will also send in eardrops. She has history of asthma with exacerbation I will send in steroid, she has tolerated prednisone in the past. Since she has cough and is unable to produce phlegm I will also send him Mucinex. Encouraged to schedule additional appointment to discuss concern for weight gain April was seen today for nasal congestion. Diagnoses and all orders for this visit: Left otitis media, unspecified otitis media type - amoxicillin (AMOXIL) 500 mg capsule; Take 1 capsule (500 mg total) by mouth 3 (three) times a day for 7 days. - gjzkspqk-pbqesggqb-TM (CORTISPORIN) otic solution; Administer 3 drops into the left ear 3 (three) times a day for 7 days. Mild asthma with exacerbation, unspecified whether persistent - predniSONE (DELTASONE) 20 mg tablet; Take 2 tablets (40 mg total) by mouth in the morning for 5 days. Other orders - guaiFENesin (MUCINEX) 600 mg tablet extended release 12hr; Take 1 tablet (600 mg total) by mouth every 12 (twelve) hours for 10 days. SARAHI Champion 10/24/24 1530 documented in this encounter [facility] [email or web address] [facility] 09-24-2024 Note HNO ID: [id number] Author: CURTIS LEPE PA-C Service: ? Author Type: Physician Senior Enterprise Architect Type: Progress Notes Filed: 09/24/2024 20:15 Note Text: Headache Center - Follow up [...] visit. Either the patient or their legal manufacturers representative has been informed of the risks [...] from last visit on 07/04/2024 with me: April Nicholson is a 28 year old [...] management. Appropriate refills were prescribed. All questions AND concerns were addressed. Regular monitoring of CBC + CMP was encouraged to evaluate for kidney/liver function and electrolytes related to long-term medication usage. Patient verbalized understanding and agreed to treatment plan. Future considerations: Increase Vyepti-I am very hesitant given adverse reaction, Aimovig, Qulipta, adjunctive Botox, adjusting infusion plan Day 1 of [...] infusions to extend efficacy beyond the current two-m (more content not included)... [facility] 09-03-2024 History of Present illness Narrative Reason [...] (BMI) of 50.0 to 59.9 in adult ([facility]) 03/21/2023 Mild persistent asthma with (acute) exacerbation (HCC) 10/10/2023 Fatigue 01/01/2024 Encounter for long-term (current) [...] asthma with allergic rhinitis (HCC) Allergies Asthma (HCC) At low risk for fall Bipolar affective, mixed (HCC) Change in blood pressure Cholecystitis 2008 Depressive disorder OMID (generalized anxiety disorder) History of hysterectomy 10/01/2021 Insomnia, persistent Migraines Mild persistent asthma without complication (HCC) Morbid obesity with BMI of 40.0-44.9, adult ([facility] PCOS (polycystic ovarian syndrome) Right otitis media Seizures ([facility]) HISTORY PAST MEDICAL HISTORY SOCIAL HISTORY Past Medical History: Diagnosis Date Acute exacerbation of asthma with allergic rhinitis (HCC) Allergies Asthma (HCC) At low risk for fall Bipolar affective, mixed (HCC) Change in blood pressure high and low Cholecystitis 2008 Chronic migraine without aura without status migrainosus, not intractable Depressive disorder OMID (generalized anxiety disorder) History of hysterectomy 10/01/2021 Insomnia, persistent Migraines Mild persistent asthma without complication (HCC) Morbid obesity with BMI of 40.0-44.9, adult ([facility]) PCOS (polycystic ovarian syndrome) Psychogenic nonepileptic seizure [...] nursing note reviewed. Exam conducted with a refinish technician present. Vitals: Estimated body mass index [...] Zay Blas DO documented in this encounter [facility] 08-26-2024 Miscellaneous Notes With Provider: VINCENT PEÑA [[facility]] Preferred Date Range: 08/27/2024 - 09/07/2024 Preferred Times: Any Reason for Visit: Same Day Comments: Asthma and allergy flareup documented in this encounter [facility] 08-26-2024 Telephone encounter Note With Provider: VINCENT PEÑA [[facility]] Preferred Date Range: 08/27/2024 - 09/07/2024 Preferred Times: Any Reason for Visit: Same Day Comments: Asthma and allergy flareup [facility] 08-19-2024 Telephone encounter Note Called patient since she no-showed for infusions today. Patient is going to cancel her infusions because she is headache free at the moment. She does want to know what to do if her headaches come back. Forwarding message to provider [facility] 08-19-2024 Miscellaneous Notes Called patient since she no-showed for infusions today. Patient is going to cancel her infusions because she is headache free at the moment. She does want to know what to do if her headaches come back. Forwarding message to provider documented in this encounter [facility] 08-16-2024 Telephone encounter Note Patient last infusion was on 08/02 and only had one day. Routing to provider to see if she can come in [facility] 08-16-2024 Miscellaneous Notes Patient last infusion was on 08/02 and only had one day. Routing to provider to see if she can come in Forwarded to infusion team, provider and Mendoza MYC message sent to patient or clarification documented in this encounter [facility] 08-16-2024 Telephone encounter Note Forwarded to infusion team, provider and Mendoza [facility] 08-16-2024 Telephone encounter Note MYC message sent to patient or clarification [facility] 08-06-2024 Telephone encounter Note Ambulatory Pharmacy Prior Authorization Note Provider Intervention Required?: No - Pharmacy completed on your behalf. Was the PA documented within the ePA workqueue?: No Rx Plan: Medicaid [facility] ([place]) Drug: Zavzpret 10MG/ACT solution Cover My Meds Chong: [id number] Determination: Approved Prior Authorization/Case #: [id number] Prior Authorization Expiration: 01/31/2025 Time to PA [...] refills. Prescriptions will now be processed through [facility] for determination of next steps. For questions relating to this submission, please contact [facility] at [phone] [facility] 08-06-2024 Miscellaneous Notes Ambulatory Pharmacy Prior Authorization Note Provider Intervention Required?: No - Pharmacy completed on your behalf. Was the PA documented within the ePA workqueue?: No Rx Plan: Medicaid [facility] ([facility]) Drug: Zavzpret 10MG/ACT solution Cover My Meds Chong: [id number] Determination: Approved Prior Authorization/Case #: [id number] Prior Authorization Expiration: 01/31/2025 Time to PA [...] refills. Prescriptions will now be processed through [facility] for determination of next steps. For questions relating to this submission, please contact [facility] at [phone] documented in this encounter [facility] 08-05-2024 Instructions Curtis Lepe PA-C - [...] more information and get the Copay Card: [email or web address] Work Study/ Administration: Nose to toes or head level (do not tilt head back). Single spray in one nostril as needed for migraine. Do not prime. One dose per 24 hours. Avoid use with severe hepatic impairment or creatinine clearance less than 30ml/min. No contraindication to take zavzpret with nurtec or another CGRP antagonist. Use copay card. 6 doses in container. documented in this encounter [facility] 08-02-2024 History of Present illness Narrative [...] Lymph 1.00 - 4.00 k/uL 0.84 Abs [place] <0.87 k/uL 0.06 Abs Eosin <0.46 k/uL [...] ZOLMitriptan (ZOMIG) 5 mg nasal spray^Use 1 [place] in the nose as needed at onset [...] and clear, coherent, and relevant. Short and buttermaker continuous churn memory, cognition and general fund of knowledge [...] proper administration without priming. Prescription sent to [facility]. - Discussed potential for staggered infusions if headaches worsen before the next scheduled Vyepti treatment. - Patient understands and agrees with the treatment plan. Level of service: [facility] level 2 (10-19 min). Time spent 18 min on the day of service, which included preparing to see the patient, [id number] patient care, completing clinical documentation, obtaining and/or [...] XL, Qudexy) Anti-Depressant and Antipsychotic Amitriptyline (Elavil) [place] (Eskalith, Lithobid) Nortriptyline (Pamelor, Aventyl) Blood Pressure Propranolol (Inderal) MABs Fremanezumab (Ajovy) Galcanezumab (Emgality) Botulinum Toxin Onabotulinum Toxin A (Botox) Supplements Magnesium The following abortive medications have been tried but require high frequency use which can lead to Medication Overuse Headache: Analgesic Ketorolac (Toradol) Anti-Migraine Dihydroergotamine (DHE-45, Migranal) Naratriptan (Amerge) Sumatriptan (Imitrex, Sumavel) Zolmitriptan (Zomig) Recording using TrenStar software for draft documentation of the visit was discussed with the patient/authorized manufacturers representative; all questions welcomed and answered. Patient/authorized manufacturers representative agreed to proceed Curtis Lepe PA-C Headache Section [facility] August 02, 2024 documented in this encounter [facility] 08-02-2024 Note HNO ID: [id number] Author: CURTIS LEPE PA-C Service: ? Author Type: Physician Senior Enterprise Architect Type: Progress Notes Filed: 08/05/2024 00:10 Note [...] Lymph 1.00 - 4.00 k/uL 0.84 Abs [place] <0.87 k/uL 0.06 Abs Eosin <0.46 k/uL [...] ZOLMitriptan (ZOMIG) 5 mg nasal sprayUse 1 [place] in the nose as needed at onset [...] rate, volume a (more content not included)... [facility] 08-02-2024 Note HNO ID: [id number] Author: ALKA MUHAMMAD RN Service: ? Author Type: Registered Nurse Type: Progress Notes Filed: 08/02/2024 12:53 Note Text: Patient in for day 1 of IV infusions. Patient rated headache 10/10. Patient stated severe nausea and mild dizziness. Patient educated on medications to be administered and a route driver to transport home was confirmed. Patient verbalized understanding and agreed to proceed with infusions. PRn zofran and benadryl given PRN phenergan given Pts infusions complete. Pt tolerated infusion well. Pt rated headache 6/10. Pt stated mild nausea and moderate dizziness. Pt discharged from treatment room. [facility] 08-02-2024 History of Present illness Narrative Patient in for day 1 of IV infusions. Patient rated headache 10/10. Patient stated severe nausea and mild dizziness. Patient educated on medications to be administered and a route driver to transport home was confirmed. Patient verbalized understanding and agreed to proceed with infusions. PRn zofran and benadryl given PRN phenergan given Pts infusions complete. Pt tolerated infusion well. Pt rated headache 6/10. Pt stated mild nausea and moderate dizziness. Pt discharged from treatment room. documented in this encounter [facility] 08-01-2024 Note HNO ID: [id number] Author: CURTIS LEPE PA-C Service: ? Author Type: Physician Senior Enterprise Architect Type: Progress Notes Filed: 08/01/2024 13:20 Note Text: Okay to come in for 1 day of non DHE IV infusions tomorrow. [facility] 08-01-2024 History of Present illness Narrative Okay [...] day 1 infusions. 1236 Patient discharged to route driver headache pain unchanged. documented in this encounter [facility] 08-01-2024 Note HNO ID: [id number] Author: LENNIE PALACIOS RN Service: ? Author [...] day 1 infusions. 1236 Patient discharged to route driver headache pain unchanged. [facility] 07-24-2024 History of Present illness Narrative Images from the original note were not included. Subjective CC: Infected toe/infection both eyes Patient ID: April Nicholson is a 28 y.o. female. CINTHIA Newberry presents with complaints of infection of right great toe. Marco Antonio had an infected toenail of her right great toe. States had a pedicure a few days ago, and balance weigher cleaned out the ingrown toenail region, and obtained a lot of green pus. States she also has had to do this in the past. Sandra feels the redness has improved, but is still sore to walk on the foot. Also relates both her eyes are light sensitive, puffy and feel bruised. This has been going on since mid-May. [facility] she talked to provider about this, and she tried taking allergy medication, along with allergy eye drops, but obtained no relief from these symptoms. Sandra states she follows up every 3 months with [facility] for migraines. Often times the last [...] Nose: Nose normal. No rhinorrhea. Mouth/Throat: Lips: [place]. Mouth: Mucous membranes are moist. Pharynx: Oropharynx [...] León 07/24/24 1707 documented in this encounter [facility] 07-05-2024 Telephone encounter Note Images from the original note were not included. Left detailed voicemail message to schedule infusions [facility] 07-05-2024 Miscellaneous Notes Images from the original note were not included. Left detailed voicemail message to schedule infusions documented in this encounter [facility] 07-05-2024 Telephone encounter Note I have been unable to reach this patient by phone. A letter is being sent to the last known home address. [facility] 07/12 Letter sent- 07/19 [facility] 07-05-2024 Miscellaneous Notes This document contains information received from the source organization and may not represent a complete record from that organization.Restricted notes were excluded I have been unable to reach this patient by phone. A letter is being sent to the last known home address. [facility] 07/12 Letter sent- 07/19 Approved or Denied?Approved Auth #[id number] Dates of span:06/25/2024 TO 09/24/2024 Method of contact:FAX Checked portal for PA Auth#[id number] still pending. Date initiated:06/25/2024 Insurance provider:[place] Name of manufacturers representative:portal(Urgent) Reference#:[id number] Please preauthorize this patient for: CPT code for testin ICD-10 code for testing: Encounter Diagnoses Code Name Primary? Z84.89 Family history of genetic disorder Yes Ordering provider: Shadia Name of test: Parental SNP Microarray Testing lab: [facility] Specimen requirement: isolated DNA Expected turnaround time: 2-3 weeks Is a Test Requisition Form required for this test: No Type of primary insurance (private or state HMO): State HMO ([employer]) Secondary Medicaid too? (Y/N): No Did the patient apply for [facility]? (Y/N): No If Yes, is it approved (provide approval dates) or still waiting on approval?: no Is a new blood sample required?: No Special lab draw instructions (e.g. Must draw on Monday-Monday): n/a Order placement: Default release COMMENTS: [employer] Plan ID: [id number] GENETIC COUNSELOR ASSESSMENT A consultation was requested [...] counselor also reviewed the case with Gifty Plascencia MD's as needed prior to seeing the [...] loss, stillbirth, unexplained infant . Dr. Gifty Plascencia MD is recommending SNP microarray testing due [...] plan is being carried out per Gifty Plascencia MD's recommendations. This note will also be sent to the referring provider. Sincerely, Viktoria Walton MS, CGC Licensed, Certified Genetic Counselor documented in this encounter [facility] 07-05-2024 Telephone encounter Note Approved or Denied?Approved Auth #[id number] Dates of span:06/25/2024 TO 09/24/2024 Method of contact:FAX [facility] 07-05-2024 History of Present illness Narrative Received [facility] FAX Forward FAX to Supporting Admin documented in this encounter [facility] 07-04-2024 Instructions Curtis Lepe PA-C - 07/04/2024 [...] light. Because your previous primary physician, Dr. Samples, left the practice, please call the front end web developer to reestablish care with a new physician when you have the opportunity. Follow the above instructions as you prepare for your infusion and ongoing care. Infusions are done here at [facility] in the [facility]. Our infusion treatment room is where an [...] provider. It is best to have a route driver, as some medications we use may cause drowsiness. If you do not have a route driver, please let your nurse know and you [...] heavy scented lotions. documented in this encounter [facility] 07-04-2024 History of Present illness Narrative [...] visit. Either the patient or their legal manufacturers representative has been informed of the risks [...] received anything there and then went home tonmanjeet took her trazodone and Valium cut she [...] migraine headache days/month: 7 Migraine headache severity: 1010 Number of headache free days/month: 14 Duration [...] XL, Qudexy) Anti-Depressant and Antipsychotic Amitriptyline (Elavil) [place] (Eskalith, Lithobid) Nortriptyline (Pamelor, Aventyl) Anti-Migraine Dihydroergotamine [...] ZOLMitriptan (ZOMIG) 5 mg nasal spray^Use 1 [place] in the nose as needed at onset [...] Lymph 1.00 - 4.00 k/uL 0.84 Abs [place] <0.87 k/uL 0.06 Abs Eosin <0.46 k/uL [...] spontaneous and fluent without dysarthria. Short and buttermaker continuous churn memory, cognition and general fund of knowledge [...] XL, Qudexy) Anti-Depressant and Antipsychotic Amitriptyline (Elavil) [place] (Eskalith, Lithobid) Nortriptyline (Pamelor, Aventyl) Blood Pressure [...] course of IV infusions, and call office ([phone]) with problems or concerns before appointment Level of Service: Virtual Visit 32 minutes Recording using TrenStar software for draft documentation of the visit was discussed with the patient/authorized manufacturers representative; all questions welcomed and answered. Patient/authorized manufacturers representative agreed to proceed This note was partially generated using [employer] voice recognition system, and there may be some incorrect words, spellings, and punctuation that were not noted in checking the note before saving. Curtis Lepe PA-C Headache Section [facility] July 04, 2024 documented in this encounter [facility] 07-04-2024 Note HNO ID: [id number] Author: CURTIS LEPE PA-C Service: ? Author Type: Physician Senior Enterprise Architect Type: Progress Notes Filed: 07/04/2024 13:48 Note [...] visit. Either the patient or their legal manufacturers representative has been informed of the risks [...] effectiveness. She identifies (more content not included)... [facility] 07-02-2024 Telephone encounter Note Checked portal for MARY Auth#[id number] still pending. [facility] 07-01-2024 History of Present illness Narrative Reason [...] in female 12/19/2022 Mixed bipolar I disorder ([facility]) 01/24/2023 Chronic migraine without aura without status migrainosus, not intractable ([facility]) 01/24/2023 Generalized anxiety disorder ([facility]) 01/24/2023 Persistent disorder of initiating or maintaining sleep 01/24/2023 Mild persistent asthma 01/24/2023 Polycystic ovaries 01/24/2023 Psychogenic nonepileptic seizure 01/24/2023 Class 3 severe obesity due to excess calories without serious comorbidity with body mass index (BMI) of 50.0 to 59.9 in adult 03/21/2023 Mild persistent asthma with (acute) exacerbation ([facility]) 10/10/2023 Fatigue 01/01/2024 Encounter for long-term [...] Acute exacerbation of asthma with allergic rhinitis ([facility]) Allergies Asthma At low risk for fall Bipolar affective, mixed (HCC) ([facility]) Change in blood pressure Cholecystitis 2009 Depressive disorder ([facility]) OMID (generalized anxiety disorder) ([facility]) History of hysterectomy 10/01/2021 Insomnia, persistent Migraines (CMS/HCC) Mild persistent asthma without complication ([facility]) Morbid obesity with BMI of 40.0-44.9, adult ([facility]) PCOS (polycystic ovarian syndrome) Right otitis media Seizures ([facility]) HISTORY PAST MEDICAL HISTORY SOCIAL HISTORY Past Medical History: Diagnosis Date Acute exacerbation of asthma with allergic rhinitis ([facility]) Allergies Asthma At low risk for fall Bipolar affective, mixed (HCC) ([facility]) Change in blood pressure high and low Cholecystitis 2008 Chronic migraine without aura without status migrainosus, not intractable ([facility]) Depressive disorder ([facility]) OMID (generalized anxiety disorder) ([facility] [facility]) History of hysterectomy 10/01/2021 Insomnia, persistent Migraines ([facility]) Mild persistent asthma without complication ([facility]) Morbid obesity with BMI of 40.0-44.9, adult ([facility]) PCOS (polycystic ovarian syndrome) Psychogenic nonepileptic seizure Right otitis media Seizures ([facility]) stressed induced Social History Tobacco Use [...] Zay Blas DO documented in this encounter [facility] 06-25-2024 Telephone encounter Note Date initiated:06/25/2024 Insurance provider:Lyndsay Name of manufacturers representative:portal(Urgent) Reference#:[id number] [facility] 06-25-2024 Telephone encounter Note Please preauthorize this patient for: CPT code for testin ICD-10 code for testing: Encounter Diagnoses Code Name Primary? Z84.89 Family history of genetic disorder Yes Ordering provider: Shadia Name of test: Parental SNP Microarray Testing lab: [facility] Specimen requirement: isolated DNA Expected turnaround time: 2-3 weeks Is a Test Requisition Form required for this test: No Type of primary insurance (private or state HMO): State HMO ([facility]) Secondary Medicaid too? (Y/N): No Did the patient apply for [facility]? (Y/N): No If Yes, is it approved (provide approval dates) or still waiting on approval?: no Is a new blood sample required?: No Special lab draw instructions (e.g. Must draw on Monday-Monday): n/a Order placement: Default release COMMENTS: [employer] ID: [id number] [facility] 06-25-2024 Telephone encounter Note GENETIC COUNSELOR ASSESSMENT [...] counselor also reviewed the case with Gifty Plascencia MD's as needed prior to seeing the [...] loss, stillbirth, unexplained infant . Dr. Gifty Plascencia MD is recommending SNP microarray testing due [...] plan is being carried out per Gifty Plascencia MD's recommendations. This note will also be sent to the referring provider. Sincerely, Viktoria Walton MS, PHILIP Licensed, Certified Genetic Counselor [facility] 06-07-2024 Miscellaneous Notes Contract: 148 No need to call documented in this encounter [facility] 06-07-2024 Telephone encounter Note Contract: 148 No need to call [facility] 06-06-2024 History of Present illness Narrative Images from the original note were not included. [address] [place] [id number] Patient: April Nicholson Date of : [...] Visit via Real-time Synchronous Audiovisual Provider Location: [facility] [address] [place] [phone] Patient Location: Patient's home Video Visit Consent [...] that there are some limitations compared to hfwl-gb-jqsy evaluations. The patient consented to the presence of additional virtual and/or in-person participants. We elected to proceed. CORINE GOLD MD Family Medicine Physician [facility] / [facility] 06/06/24 This note was completed with voice recognition software. The document was reviewed for errors however some may still be present. Please do not hesitate to contact/Epic msg the author to verify any questions/concerns. documented in this encounter [facility] [email or web address] [facility] 06-03-2024 Telephone encounter Note Requesting refills as [...] spray 12 each 5 Sig: Use 1 [place] in the nose as needed at onset of migraine headache. If symptoms persist or return, may repeat dose in other nostril after 2 hours. Maximum of 2 sprays per 24 hours Last visit 05/03/2024 with Sherif HERNANDEZ Next scheduled Visit date not found [facility] 06-03-2024 Miscellaneous Notes Requesting refills as [...] spray 12 each 5 Sig: Use 1 [place] in the nose as needed at onset of migraine headache. If symptoms persist or return, may repeat dose in other nostril after 2 hours. Maximum of 2 sprays per 24 hours Last visit 05/03/2024 with Sherif HERNANDEZ Next scheduled Visit date not found documented in this encounter [facility] 05-21-2024 History of Present illness Narrative Images from the original note were not included. [place] [id number] [facility] [place] [address] [place] [address] Patient: April Nicholson Date of : 1995 Encounter Date: 05/21/2024 Subjective: Chief Complaint Chief Complaint Patient presents with sinus infection History of Present Illness April Nicholson is a 28 y.o. female, established patient, that presents to the office for acute sinus congestion. History provided by patient. Sinus Problem This is a new problem. Episode onset: 4 days ago. Maximum temperature: [place] feverish. Associated symptoms include chills (With associated [...] and frontal sinus tenderness present. Mouth/Throat: Lips: [place]. No lesions. Mouth: Mucous membranes are moist. [...] History: Procedure Laterality Date APPENDECTOMY SECTION CHOLECYSTECTOMY [facility] LYSIS OF ADHESIONS N/A 03/28/2024 Performed by Mundo Martinez MD at [facility]5 LYSIS OF ADHESIONS N/A 03/28/2024 Performed by Jesse Sultana MD at [facility]5 [place] OOPHORECTOMY/FROZEN SECTION Bilateral 03/28/2024 Performed by Mundo Martinez MD at [facility] DILATION AND CURETTAGE OF UTERUS PARTIAL [...] Physical Activity: Insufficiently Active (01/23/2024) Received from [facility] Exercise Vital Sign Days of Exercise per Week: 7 days Minutes of Exercise per Session: 10 min Stress: Stress Concern Present (01/23/2024) Received from [facility] - Occupational Stress Questionnaire Feeling of Stress : Rather much Social Connections: Socially Integrated (01/23/2024) Received from [facility] Social Connection and Isolation Panel [NHANES] Frequency of Communication with Friends and Family: More than three times a week Frequency of Social Gatherings with Friends and Family: Twice a week Attends Confucianist Services: More than 4 times per year [...] [Azithromycin] Hives Buspirone Hives Compazine [Prochlorperazine] Anxiety Eptinezumab-[facility] Itching and Rash Patient described extreme itching [...] mg total) by mouth in the morning. hqwrlzocpzc-csjvedbkl-xarmplft (TRELEGY ELLIPTA) 200-62.5-25 mcg blister with device [...] 05/21/24 10:30 AM documented in this encounter [facility] 05-21-2024 Instructions Rajinder Cotton DO - 05/21/2024 [...] infection from antibiotics documented in this encounter [facility] 05-15-2024 History of Present illness Narrative Subjective: April Tracie Nicholson is a 28 y.o. female who is s/p a laparoscopic BSO, FANNY on 03/28/24. Pathology: benign She unfortunately was admitted to [facility] on 04/08/24 after experiencing high fevers [...] Procedure Laterality Date APPENDECTOMY SECTION CHOLECYSTECTOMY [id number] LYSIS OF ADHESIONS N/A 03/28/2024 [facility] LYSIS OF ADHESIONS N/A 03/28/2024 Performed by Jesse Sultana MD at [facility] [place] OOPHORECTOMY/FROZEN SECTION Bilateral 03/28/2024 Performed by Mundo Martinez MD at [facility] DILATION AND CURETTAGE OF UTERUS PARTIAL [...] Physical Activity: Insufficiently Active (01/23/2024) Received from [facility] Exercise Vital Sign Days of Exercise per Week: 7 days Minutes of Exercise per Session: 10 min Stress: Stress Concern Present (01/23/2024) Received from [facility] - Occupational Stress Questionnaire Feeling of Stress : Rather much Social Connections: Socially Integrated (01/23/2024) Received from [facility] Social Connection and Isolation Panel [NHANES] Frequency of Communication with Friends and Family: More than three times a week Frequency of Social Gatherings with Friends and Family: Twice a week Attends Confucianist Services: More than 4 times per year [...] anomaly not found LOC (loss of consciousness) ([facility]) Migraine with aura and without status [...] be continued by her PCP or primary network liaison. Estradiol 1 mg tablet once daily PO. *The patient has a documented plan of care to address pain. All questions were answered to the patient's satisfaction. She is agreeable to this plan of care. *This note was completed using a voice card reader system. Every effort was made to ensure accuracy. However, inadvertent computerized card reader errors may be present. .Total time spent [...] Cintron 05/15/24 0913 [facility] Note Ambulatory Pharmacy Prior Authorization Note Provider Intervention Required?: No - Pharmacy completed on your behalf. Was the PA documented within the ePA workqueue?: No Rx Plan: Medicaid MCO ([facility]) Drug: Ubrelvy 100MG tablets Cover My Meds Chong: [id number] Determination: Approved Prior Authorization/Case #: [id number] Prior Authorization Expiration: 05/07/24 Time to PA [...] refills. Prescriptions will now be processed through [facility] for determination of next steps. For questions relating to this submission, please contact [facility] at [phone] [facility] Work Phone: 05-13-2024 Miscellaneous Notes Ambulatory Pharmacy Prior Authorization Note Provider Intervention Required?: No - Pharmacy completed on your behalf. Was the PA documented within the ePA workqueue?: No Rx Plan: Medicaid MCO ([facility]) Drug: Ubrelvy 100MG tablets Cover My Meds Chong: [id number] Determination: Approved Prior Authorization/Case #: [id number] Prior Authorization Expiration: 05/07/24 Time to PA [...] refills. Prescriptions will now be processed through [facility] for determination of next steps. For questions relating to this submission, please contact [facility] at [phone] [facility] received prescription(s) for Ubrelvy 100MG tablets . Benefits investigation was conducted, indicating that a prior authorization is required. All pertinent clinical information was submitted to insurance. Epic- Referral # [id number] Angely Cotton RN [facility] P: , F: Dr Lepe , Pt's ubrelvy needs a PA . I am unable to complete a PA since your office note is unfinished. Please let me know when you have completed it and I will put in the PA tanner. Thanks! Angely Cotton RN [facility] P: , F: documented in this encounter [facility] 05-08-2024 Telephone encounter Note [facility] received prescription(s) for Ubrelvy 100MG tablets . Benefits investigation was conducted, indicating that a prior authorization is required. All pertinent clinical information was submitted to insurance. Epic- Referral # [id number] Angely Cotton RN [facility] P: , F: [facility] 05-07-[address] Lepe , Pt's ubrelvy needs a PA . I am unable to complete a PA since your office note is unfinished. Please let me know when you have completed it and I will put in the PA tanner. Thanks! Angely Cotton RN [facility] P: , F: [facility] 05-03-2024 Instructions Curtis Lepe PA-C - 05/03/2024 9:57 AM EDT Ubrogepant (Ubrelvy) 50 mg or 100 mg tablet CGRP antagonist. Take 1 tablet at onset of migraine/headache. May repeat dose in 2 hours if needed. Do NOT take more than 2 tablets in 24 hours. Max dose is 200 mg in 24 hours. Potential side effects include drowsiness, nausea and dry mouth. PATIENT ASSISTANCE PROGRAM (PAP): https://www.abbRebyoo.com/patients/ patient-support/patient-assistan ce/eligibility-criteria.html#jose wilder - Start taking Ubrelvy as prescribed for [...] clinician as needed. documented in this encounter [facility] 05-03-2024 History of Present illness Narrative [...] visit. Either the patient or their legal manufacturers representative has been informed of the risks [...] XL, Qudexy) Anti-Depressant and Antipsychotic Amitriptyline (Elavil) [place] (Eskalith, Lithobid) Nortriptyline (Pamelor, Aventyl) Anti-Migraine Dihydroergotamine [...] ZOLMitriptan (ZOMIG) 5 mg nasal spray^Use 1 [place] in the nose as needed at onset [...] Lymph 1.00 - 4.00 k/uL 0.84 Abs [place] <0.87 k/uL 0.06 Abs Eosin <0.46 k/uL [...] spontaneous and fluent without dysarthria. Short and buttermaker continuous churn memory, cognition and general fund of knowledge [...] XL, Qudexy) Anti-Depressant and Antipsychotic Amitriptyline (Elavil) [place] (Eskalith, Lithobid) Nortriptyline (Pamelor, Aventyl) Blood Pressure [...] XL, Qudexy) Anti-Depressant and Antipsychotic Amitriptyline (Elavil) [place] (Eskalith, Lithobid) Nortriptyline (Pamelor, Aventyl) Blood Pressure [...] time Follow-up: 2 months and call office ([phone]) with problems or concerns before appointment Level of Service: Virtual Visit 35 minutes The patient consented to the use of T[employer]Star software for draft documentation of the visit consistent with [facility] s Notice of Privacy Practices. This note was partially generated using [employer] voice recognition system, and there may be some incorrect words, spellings, and punctuation that were not noted in checking the note before saving. Curtis Lepe PA-C Headache Section [facility] May 03, 2024 documented in this encounter [facility] 05-03-2024 Note HNO ID: [id number] Author: CURTIS LEPE PA-C Service: ? Author Type: Physician Senior Enterprise Architect Type: Progress Notes Filed: 05/08/2024 00:02 Note [...] visit. Either the patient or their legal manufacturers representative has been informed of the risks [...] headache severity: 10/ (more content not included)... [facility] 05-02-2024 Note HNO ID: [id number] Author: CLAUDIA MAYNARD RN Service: ? Author [...] and agreeable to plan. Patient discharged to route driver. [facility] 05-02-2024 History of Present illness Narrative Patient [...] and agreeable to plan. Patient discharged to route driver. documented in this encounter [facility] 04-30-2024 Miscellaneous Notes Attempted to contact patient regarding refill sent in. No answer, left voicemail. documented in this encounter [facility] 04-30-2024 Telephone encounter Note Attempted to contact patient regarding refill sent in. No answer, left voicemail. [facility] 04-29-2024 History of Present illness Narrative Patient called asking for refill of oxycodone for post op pain. Upon reviewing her OARRS it would appear she had Tylenol III refilled last week at [facility] [place], [place]. Discussed this with patient who states [...] post op pain. She expressed understanding. Called [facility] after completing phone call with patient. Pharmacy staff confirmed prescription for Tylenol III was picked up on 04/22/24 with a receipt available to view. MARY Cintron 04/29/24 1440 documented in this encounter [facility] 04-29-2024 History of Present illness Narrative The OARRS/MAPPS database was reviewed today and found to be appropriate. No indication of medication diversion, or non compliance. SARAHI Champion 04/29/24 0918 documented in this encounter [facility] 04-25-2024 History of Present illness Narrative Images from the original note were not included. [address] [place] [phone] Patient: April Nicholson Date of : 1995 Encounter Date: 04/25/2024 SUBJECTIVE: HISTORY OF PRESENT ILLNESS: Chief Complaint: Chief Complaint Patient presents with [facility] Patient ID: April is a 28 y.o. 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 Has episodes of zoning out. No history of Sleep Study Support system is fragmented -parents -Sikhism -2 fathers of childrens - not interested in being involved. PAST MEDICAL HISTORY: Past Medical History: Diagnosis Date Anxiety Asthma BV (bacterial vaginosis) Depression Migraine 15 days out of the month-receives an infusion every 3 months MRSA (methicillin resistant Staphylococcus aureus) In a buttocks wound in 8th grade Ovarian cyst, bilateral 03/25/2024 Prolonged emergence from general anesthesia Seizure ([facility]) Last one 03-11-2024 PAST SURGICAL HISTORY: Past Surgical History: Procedure Laterality Date APPENDECTOMY SECTION CHOLECYSTECTOMY [facility] LYSIS OF ADHESIONS N/A 03/28/2024 Performed by Mundo Martinez MD at [facility] LYSIS OF ADHESIONS N/A 03/28/2024 Performed by Jesse Sultana MD at [facility] [place] OOPHORECTOMY/FROZEN SECTION Bilateral 03/28/2024 Performed by Mundo Martinez MD at [facility] DILATION AND CURETTAGE OF UTERUS PARTIAL [...] Physical Activity: Insufficiently Active (01/23/2024) Received from [facility] Exercise Vital Sign Days of Exercise per Week: 7 days Minutes of Exercise per Session: 10 min Stress: Stress Concern Present (01/23/2024) Received from [facility] - Occupational Stress Questionnaire Feeling of Stress : Rather much Social Connections: Socially Integrated (01/23/2024) Received from [facility] Social Connection and Isolation Panel [NHANES] Frequency of Communication with Friends and Family: More than three times a week Frequency of Social Gatherings with Friends and Family: Twice a week Attends Confucianist Services: More than 4 times per year [...] mouth in the morning and at bedtime. lrcwanvqdli-chepyuhxg-bevhwqwv (TRELEGY ELLIPTA) 200-62.5-25 mcg blister with device [...] CORINE GOLD MD Family Medicine Physician [facility] 04/25/24 This note was completed with voice recognition software. The document was reviewed for errors however some may still be present. Please do not hesitate to contact/Epic msg the author to verify any questions/concerns. documented in this encounter [facility] 04-24-2024 History of Present illness Narrative Images from the original note were not included. [facility] pharmacy notified. Spoke with Leonie. MARY Cintron RN Up to twice daily, thanks! Previous Messages ----- Message ----- From: Alice Wright RN Sent: 04/24/2024 2:17 PM EST To: MARY Cintron [facility] pharmacy called for clarification on the lidocaine cream. How many times a day can she the cream? Please advise. Thank you, Rubi documented in this encounter [facility] 04-24-2024 History of Present illness Narrative Subjective: April Nicholson is a 28 y.o. female who is s/p a laparoscopic BSO, FANNY on 03/28/24. Pathology: benign She unfortunately was admitted to [facility] on 04/08/24 after experiencing high fevers despite being on antibiotics. The patient stated that she completed a 7-day course of clindamycin post-operatively. One day prior to presentation to the ED, the patient had been evaluated at [facility] and was given 1 dose of bactrim [...] by Mundo Martinez MD at [facility] LYSIS OF ADHESIONS N/A 03/28/2024 Performed by Jesse Sultana MD at [facility] [place] OOPHORECTOMY/FROZEN SECTION Bilateral 03/28/2024 Performed by Mundo Martinez MD at [facility] DILATION AND CURETTAGE OF UTERUS PARTIAL [...] Physical Activity: Insufficiently Active (01/23/2024) Received from [facility] Exercise Vital Sign Days of Exercise per Week: 7 days Minutes of Exercise per Session: 10 min Stress: Stress Concern Present (01/23/2024) Received from [facility] - Occupational Stress Questionnaire Feeling of Stress : Rather much Social Connections: Socially Integrated (01/23/2024) Received from [facility] Social Connection and Isolation Panel [NHANES] Frequency of Communication with Friends and Family: More than three times a week Frequency of Social Gatherings with Friends and Family: Twice a week Attends Confucianist Services: More than 4 times per year [...] anomaly not found LOC (loss of consciousness) ([facility]) Migraine with aura and without status migrainosus, not intractable Bilateral occipital neuralgia Asthma without status asthmaticus Anxiety Depressive disorder Seizure-like activity ([facility]) Simple partial seizure disorder ([facility]) Psychogenic nonepileptic seizure Acute cough S/P [...] *This note was completed using a voice card reader system. Every effort was made to ensure accuracy. However, inadvertent computerized card reader errors may be present. .Total time spent [...] Cintron 04/24/24 1228 [facility] Telephone encounter Note Calls were returned to patient. Patient is scheduled for vyepti [facility] 04-22-2024 Miscellaneous Notes Calls were returned to patient. Patient is scheduled for vyepti documented in this encounter [facility] 04-16-2024 History of Present illness Narrative [...] in female 12/19/2022 Mixed bipolar I disorder ([facility]) 01/24/2023 Chronic migraine without aura without status migrainosus, not intractable ([facility]) 01/24/2023 Generalized anxiety disorder ([facility]) 01/24/2023 Persistent disorder of initiating or maintaining sleep 01/24/2023 Mild persistent asthma ([facility]) 01/24/2023 Polycystic ovaries 01/24/2023 Psychogenic nonepileptic seizure ([facility]) 01/24/2023 Class 3 severe obesity due to excess calories without serious comorbidity with body mass index (BMI) of 50.0 to 59.9 in adult ([facility]) 03/21/2023 Mild persistent asthma with (acute) exacerbation ([facility]) 10/10/2023 Fatigue 01/01/2024 Encounter for long-term [...] Acute exacerbation of asthma with allergic rhinitis ([facility]) Allergies Asthma ([facility]) At low risk for fall Bipolar affective, mixed (HCC) ([facility]) Change in blood pressure Cholecystitis 2009 Depressive disorder ([facility]) OMID (generalized anxiety disorder) ([facility]) History of hysterectomy 10/01/2021 Insomnia, persistent Migraines ([facility]) Mild persistent asthma without complication ([facility]) Morbid obesity with BMI of 40.0-44.9, adult ([facility] [facility]) PCOS (polycystic ovarian syndrome) Right otitis media Seizures ([facility]) HISTORY PAST MEDICAL HISTORY SOCIAL HISTORY Past Medical History: Diagnosis Date Acute exacerbation of asthma with allergic rhinitis ([facility]) Allergies Asthma ([facility]) At low risk for fall Bipolar affective, mixed (HCC) ([facility]) Change in blood pressure high and low Cholecystitis 2008 Chronic migraine without aura without status migrainosus, not intractable ([facility]) Depressive disorder ([facility]) OMID (generalized anxiety disorder) ([facility]) History of hysterectomy 10/01/2021 Insomnia, persistent Migraines ([facility]) Mild persistent asthma without complication ([facility]) Morbid obesity with BMI of 40.0-44.9, adult ([facility]) PCOS (polycystic ovarian syndrome) Psychogenic nonepileptic seizure ([facility]) Right otitis media Seizures ([facility]) stressed induced Social History Tobacco Use [...] nursing note reviewed. Exam conducted with a refinish technician present. Vitals: Estimated body mass index [...] Zay Blas DO documented in this encounter [facility] 04-15-2024 History of Present illness Narrative Subjective: April Nicholson is a 28 y.o. female who is s/p a laparoscopic BSO, FANNY on 03/28/24. Pathology: benign She unfortunately was admitted to [facility] on 04/08/24 after experiencing high fevers despite being on antibiotics. The patient stated that she completed a 7-day course of clindamycin post-operatively. One day prior to presentation to the ED, the patient had been evaluated at [facility] and was given 1 dose of bactrim [...] History: Procedure Laterality Date APPENDECTOMY SECTION CHOLECYSTECTOMY [facility] LYSIS OF ADHESIONS N/A 03/28/2024 Performed by Mundo Martinez MD at [place] [id number] LYSIS OF ADHESIONS N/A 03/28/2024 Performed by Jesse Sultana MD at [facility] [place] OOPHORECTOMY/FROZEN SECTION Bilateral 03/28/2024 Performed by Mundo Martinez MD at [facility] DILATION AND CURETTAGE OF UTERUS PARTIAL [...] Physical Activity: Insufficiently Active (01/23/2024) Received from [facility] Exercise Vital Sign Days of Exercise per Week: 7 days Minutes of Exercise per Session: 10 min Stress: Stress Concern Present (01/23/2024) Received from [facility] [employer] - Occupational Stress Questionnaire Feeling of Stress : Rather much Social Connections: Socially Integrated (01/23/2024) Received from [facility] Social Connection and Isolation Panel [NHANES] Frequency of Communication with Friends and Family: More than three times a week Frequency of Social Gatherings with Friends and Family: Twice a week Attends Confucianist Services: More than 4 times per year [...] anomaly not found LOC (loss of consciousness) ([facility] Migraine with aura and without status migrainosus, not intractable Bilateral occipital neuralgia Asthma without status asthmaticus Anxiety Depressive disorder Seizure-like activity ([facility]) Simple partial seizure disorder ([facility]) Psychogenic nonepileptic seizure Acute cough S/P bilateral [...] *This note was completed using a voice card reader system. Every effort was made to ensure accuracy. However, inadvertent computerized card reader errors may be present. .Total time spent [...] [place] 04/16/24 1237 [facility] Progress note Formatting of t his note might be different from the original. DISCHARGE PLANNING NOTE Patient's RN reported that patient would like a rolling walker at discharge, Referral placed on [employer] with script and face to face documentation attached with a request of delivery to patient's room today for discharge. Job Placement Counselor will follow for discharge transition - DESIREE QURESHI RN 04/10/24 3:05 PM [facility] Miscellaneous Notes DISCHARGE PLANNING NOTE Patient's RN reported that patient would like a rolling walker at discharge, Referral placed on [employer] with script and face to face documentation attached with a request of delivery to patient's room today for discharge. Job Placement Counselor will follow for discharge transition - DESIREE QURESHI RN 04/10/24 3:05 PM DISCHARGE PLANNING NOTE Referral sent to multiple facilities or agencies due to patient insurance type/difficult placement/patient is without preference. DISCHARGE PLANNING NOTE Per RN during discharge transition rounds, barriers to discharge are: No barriers. [place] referral sent for [facility]. Patient states that she is not comfortable doing her own wound care. Has family that assist 4-5 times per week with wound care. Discharge Plan: Plan is home with [facility] if able to find company to agree to care. Will arrange outpatient wound care if unable to find accepting [facility]. Job Placement Counselor will continue to follow for any discharge needs. - Nicky Buchanan RN 04/10/24 10:38 AM Problem: Pain Goal: Patient goal is pain score less than 4, able to rest, and participant in treatment plan as appropriate Description: INTERVENTIONS: 1. Encourage patient or legal manufacturers representative to report early pain and ask [...] per policy 9. Teach patient or legal manufacturers representative interventions for comforting Outcome: Progressing Note: [...] at the bedside 7. Instruct patient/ patient manufacturers representative about use of safety devices 8. Include patient/ patient manufacturers representative in decisions related to safety Outcome: [...] hygiene technique. 7. Identify and instruct patient/patient manufacturers representative in use of appropriate isolation precautions for identified infection/symptoms. 8. Provide and discuss with patient/patient manufacturers representative on educational MDRO sheet. 9. Encourage and monitor nutritional status daily and consult sas programmer analyst if indicated. 10. Implement neutropenic guidelines as needed. Outcome: Progressing Note: Evaluation of progress towards goal: Patient afebrile, vital signs stable at this time. Continuing to monitor. Problem: Knowledge Deficit Goal: Patient/patient manufacturers representative demonstrates understanding of disease process, treatment [...] Score of =/> 25 or indicated by [facility] Assessment Goal: Patient should be free from fall Description: Interventions: 1. [place] to environment 2. Hourly rounds addressing the [...] non-skid footwear 11. Teach patient and patient manufacturers representative to maintain environment for safety and [...] (cane, walker) within reach 19. Request patient manufacturers representative bring adaptive equipment/mobility aids from home or obtain and provide as needed 20. Consult pharmacy regarding effects of med's affecting mobility, cognition, and alternatives 21. Obtain physician order for PT if risk factors associated with mobility are present 22. Obtain physician order for OT as appropriate 23. Utilize diversional activities 24. Educate patient and patient manufacturers representative how to maintain a safe environment during visitation times (notify nurse prior to leaving bedside) 25. Consider appropriateness of medical or non-pesticide use medical coordinator 26. Set up voiding schedule as appropriate [...] be free from fall Description: Interventions: 1. [place] to environment 2. Hourly rounds addressing the [...] non-skid footwear 11. Teach patient and patient manufacturers representative to maintain environment for safety and [...] Description: INTERVENTIONS: 1. Encourage patient or legal manufacturers representative to report early pain and ask [...] per policy 9. Teach patient or legal manufacturers representative interventions for comforting Outcome: Progressing Note: [...] at the bedside 7. Instruct patient/ patient manufacturers representative about use of safety devices 8. Include patient/ patient manufacturers representative in decisions related to safety Outcome: [...] hygiene technique. 7. Identify and instruct patient/patient manufacturers representative in use of appropriate isolation precautions for identified infection/symptoms. 8. Provide and discuss with patient/patient manufacturers representative on educational MDRO sheet. 9. Encourage and monitor nutritional status daily and consult sas programmer analyst if indicated. 10. Implement neutropenic guidelines as needed. Outcome: Progressing Note: Evaluation of progress towards goal: Standard precautions and hand hygiene used to prevent infection Problem: Knowledge Deficit Goal: Patient/patient manufacturers representative demonstrates understanding of disease process, treatment [...] Collaborate with ancillary departments 14. Include patient/patient manufacturers representative in decisions related to anxiety Outcome: [...] Score of =/> 25 or indicated by [facility] Assessment Goal: Patient should be free from fall Description: Interventions: 1. [place] to environment 2. Hourly rounds addressing the [...] non-skid footwear 11. Teach patient and patient manufacturers representative to maintain environment for safety and [...] (cane, walker) within reach 19. Request patient manufacturers representative bring adaptive equipment/mobility aids from home or obtain and provide as needed 20. Consult pharmacy regarding effects of med's affecting mobility, cognition, and alternatives 21. Obtain physician order for PT if risk factors associated with mobility are present 22. Obtain physician order for OT as appropriate 23. Utilize diversional activities 24. Educate patient and patient manufacturers representative how to maintain a safe environment during visitation times (notify nurse prior to leaving bedside) 25. Consider appropriateness of medical or non-pesticide use medical coordinator 26. Set up voiding schedule as appropriate [...] 6. Collaborate with pastoral/spiritual care, social work lecturer, mental health counselor as needed. 7. Instruct patient on diversional activities such as physical activity, distraction, and deep breathing exercises to assist with coping 8. Involve patient's manufacturers representative in care Outcome: Completed Note: Evaluation of progress towards goal: completed DISCHARGE PLANNING NOTE Update: [facility] unable to accept. Referrals for [facility] and [facility] per patient choice sent. Waiting on reply. - Nicky Buchanan RN 04/09/24 2:59 PM DISCHARGE PLANNING NOTE Conditioner Tumbler Operator met with patient, introduced self, and explained role. Patient educated on safe discharge plan. Pt admitted 04/08/2024 with Abdominal wall cellulitis [L03.311] Sepsis ([facility]) [A41.9] Postoperative surgical complication involving genitourinary [...] 03/25/2024 Prolonged emergence from general anesthesia Seizure ([facility]) Last one 03-11-2024 Prior to admission patient was living with family and self care. Medical equipment patient used prior to admission includes: None. Patient denies need for transportation/ food/ prescription medication assistance resources. Patient lives with minor children and boyfriend. Has support from mother. Referral sent to [facility] per patient choice- her daughter has used them before. PCP: CORINE GOLD MD Pharmacy:[facility] in [place] PCP and pharmacy confirmed with patient. CN [...] Description: INTERVENTIONS: 1. Encourage patient or legal manufacturers representative to report early pain and ask [...] per policy 9. Teach patient or legal manufacturers representative interventions for comforting Outcome: Progressing Note: Evaluation of progress towards goal: pt in abd pain. Elin and saleem available Problem: Safety Goal: Patient [...] at the bedside 7. Instruct patient/ patient manufacturers representative about use of safety devices 8. Include patient/ patient manufacturers representative in decisions related to safety Outcome: [...] hygiene technique. 7. Identify and instruct patient/patient manufacturers representative in use of appropriate isolation precautions for identified infection/symptoms. 8. Provide and discuss with patient/patient manufacturers representative on educational MDRO sheet. 9. Encourage and monitor nutritional status daily and consult sas programmer analyst if indicated. 10. Implement neutropenic guidelines as needed. Outcome: Progressing Note: Evaluation of progress towards goal: on iv atb. Cont to trend labs.fevers Problem: Knowledge Deficit Goal: Patient/patient manufacturers representative demonstrates understanding of disease process, treatment [...] Collaborate with ancillary departments 14. Include patient/patient manufacturers representative in decisions related to anxiety Outcome: [...] 6. Collaborate with pastoral/spiritual care, social work lecturer, mental health counselor as needed. 7. Instruct patient on diversional activities such as physical activity, distraction, and deep breathing exercises to assist with coping 8. Involve patient's manufacturers representative in care Outcome: Progressing Note: Evaluation of progress towards goal: able to voice concerns. Problem: Moderate - High Risk Fall Score Description: Nath Fall Score of =/> 25 or indicated by [facility] Assessment Goal: Patient should be free from fall Description: Interventions: 1. [place] to environment 2. Hourly rounds addressing the [...] non-skid footwear 11. Teach patient and patient manufacturers representative to maintain environment for safety and [...] (cane, walker) within reach 19. Request patient manufacturers representative bring adaptive equipment/mobility aids from home or obtain and provide as needed 20. Consult pharmacy regarding effects of med's affecting mobility, cognition, and alternatives 21. Obtain physician order for PT if risk factors associated with mobility are present 22. Obtain physician order for OT as appropriate 23. Utilize diversional activities 24. Educate patient and patient manufacturers representative how to maintain a safe environment during visitation times (notify nurse prior to leaving bedside) 25. Consider appropriateness of medical or non-pesticide use medical coordinator 26. Set up voiding schedule as appropriate [...] Description: INTERVENTIONS: 1. Encourage patient or legal manufacturers representative to report early pain and ask [...] per policy 9. Teach patient or legal manufacturers representative interventions for comforting Note: Evaluation of [...] at the bedside 7. Instruct patient/ patient manufacturers representative about use of safety devices 8. Include patient/ patient manufacturers representative in decisions related to safety Note: [...] hygiene technique. 7. Identify and instruct patient/patient manufacturers representative in use of appropriate isolation precautions for identified infection/symptoms. 8. Provide and discuss with patient/patient manufacturers representative on educational MDRO sheet. 9. Encourage and monitor nutritional status daily and consult sas programmer analyst if indicated. 10. Implement neutropenic guidelines as needed. Note: Evaluation of progress towards goal: Wound culture pending. Iv zosyn, vanco, and flagyl administered 04/08. Problem: Knowledge Deficit Goal: Patient/patient manufacturers representative demonstrates understanding of disease process, treatment [...] Collaborate with ancillary departments 14. Include patient/patient manufacturers representative in decisions related to anxiety Note: [...] 6. Collaborate with pastoral/spiritual care, social work lecturer, mental health counselor as needed. 7. Instruct patient on diversional activities such as physical activity, distraction, and deep breathing exercises to assist with coping 8. Involve patient's manufacturers representative in care Note: Evaluation of progress towards goal: Emotional support provided by RN and pts SO. documented in this encounter [facility] 04-10-2024 History of Present illness Narrative The [...] DC later tonight Zain Pagan, MS3 [facility] Resident Attestation I have seen and evaluated the patient, and have also reviewed the documentation above. I have repeated and performed the chong portions of the physical exam and concur with the student's findings. I agree with the plan as noted above with any changes made as necessary. George Pisano MD Mud Logger Resident PGY-1 04/10/24 7:50 AM If questions [...] Date/Time Wound culture superficial includes gram stain [[id number]] Collected: 04/08/242024 Specimen: Wound Swab Updated: 04/08/24 2331 Gram Stain Result >25 WHITE BLOOD CELLS/LPF 0 SQUAMOUS EPITHELIAL CELLS/LPF FEW GRAM POSITIVE COCCI Culture PENDING Urine culture [[id number]] Collected: 04/08/24 1616 Specimen: Urine Updated: 04/08/24 1723 Blood culture [[id number]] Collected: 04/08/24 1411 Specimen: Blood Updated: 04/09/24 0229 Culture NO GROWTH <24 HRS SARS/FLU A+B/RSV by NAAT/Molecular (M4RT Collection Tube) [[id number]] Collected: 04/08/24 1403 Specimen: Nasopharynx Updated: 04/08/24 1506 FLU A PCR Negative FLU B PCR Negative RSV by PCR Negative SARS CoV 2 BY PCR Not Detected Blood culture [[id number]] Collected: 04/08/24 1343 Specimen: Blood Updated: 04/09/24 [...] Thank you for consulting. Nicholas Osuna, PharmD, [facility] [id number] Images from the original note were not [...] of care per primary. Sherri Miranda, MS3 [facility] 04/09/24 7:25 AM Jaziel Crump MD PGY-3 Surgery Resident 04/09/24 7:25 AM Cosigned by Benjamin Francis MD at 04/09/2024 10:19 PM EST Associated attestation - Benjamin Francis MD - 04/09/2024 10:19 PM EST documented in this encounter [facility] 04-10-2024 Progress note Formatting of t his note might be different from the original. DISCHARGE PLANNING NOTE Referral sent to multiple facilities or agencies due to patient insurance type/difficult placement/patient is without preference. [facility] 04-10-2024 Progress note Formatting of t his note might be different from the original. DISCHARGE PLANNING NOTE Per RN during discharge transition rounds, barriers to discharge are: No barriers. [place] referral sent for [facility]. Patient states that she is not comfortable doing her own wound care. Has family that assist 4-5 times per week with wound care. Discharge Plan: Plan is home with [facility] if able to find company to agree to care. Will arrange outpatient wound care if unable to find accepting [facility]. Job Placement Counselor will continue to follow for any discharge needs. - Nicky Buchanan RN 04/10/24 10:38 AM [facility] 04-10-2024 Plan of care note Problem: Pain Goal: Patient goal is pain score less than 4, able to rest, and participant in treatment plan as appropriate Description: INTERVENTIONS: 1. Encourage patient or legal manufacturers representative to report early pain and ask [...] per policy 9. Teach patient or legal manufacturers representative interventions for comforting Outcome: Progressing Note: [...] at the bedside 7. Instruct patient/ patient manufacturers representative about use of safety devices 8. Include patient/ patient manufacturers representative in decisions related to safety Outcome: [...] hygiene technique. 7. Identify and instruct patient/patient manufacturers representative in use of appropriate isolation precautions for identified infection/symptoms. 8. Provide and discuss with patient/patient manufacturers representative on educational MDRO sheet. 9. Encourage and monitor nutritional status daily and consult sas programmer analyst if indicated. 10. Implement neutropenic guidelines as needed. Outcome: Progressing Note: Evaluation of progress towards goal: Patient afebrile, vital signs stable at this time. Continuing to monitor. Problem: Knowledge Deficit Goal: Patient/patient manufacturers representative demonstrates understanding of disease process, treatment [...] Score of =/> 25 or indicated by [facility] Assessment Goal: Patient should be free from fall Description: Interventions: 1. [place] to environment 2. Hourly rounds addressing the [...] non-skid footwear 11. Teach patient and patient manufacturers representative to maintain environment for safety and [...] (cane, walker) within reach 19. Request patient manufacturers representative bring adaptive equipment/mobility aids from home or obtain and provide as needed 20. Consult pharmacy regarding effects of med's affecting mobility, cognition, and alternatives 21. Obtain physician order for PT if risk factors associated with mobility are present 22. Obtain physician order for OT as appropriate 23. Utilize diversional activities 24. Educate patient and patient manufacturers representative how to maintain a safe environment during visitation times (notify nurse prior to leaving bedside) 25. Consider appropriateness of medical or non-pesticide use medical coordinator 26. Set up voiding schedule as appropriate (every 2 hours) Outcome: Progressing Note: Evaluation of progress towards goal: Patient remains free from falls at this time. Interventions in place to help prevent falls. Continuing to monitor. Problem: Low Risk Fall Score Description: Nath Fall Score of 0 - 24 or indicated by [facility] Assessment Goal: Patient should be free from fall Description: Interventions: 1. [place] to environment 2. Hourly rounds addressing the [...] non-skid footwear 11. Teach patient and patient manufacturers representative to maintain environment for safety and engage in all aspects of fall prevention program Outcome: Progressing Note: Evaluation of progress towards goal: Patient remains free from falls at this time. Interventions in place to help prevent falls. Continuing to monitor. [facility] 04-10-2024 Hospital course Narrative Inpatient Discharge Summary BRIEF OVERVIEW Admitting Provider: Primary Care Physician at Discharge: Admission Date: 04/08/2024 Discharge Date: 04/10/24 Procedures: Bedside I&D for abdominal abscess HPI: April Nicholson is a 28 y.o. female who presented to [facility] ED on 04/08/2024 with hx of abdominal pain and fever. 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 The patient stated that she completed a 7-day course of clindamycin post-operatively. One day prior to presentation to the ED, the patient had been evaluated at [facility] and was given 1 dose of bactrim [...] 200 mg given BID during inpatient stay [place] carbonate 600 mg PO given qd during [...] Zaki Gupta 04/10/24 3rd Year Medical Student, [facility] Resident Attestation I have seen and evaluated the patient, and have also reviewed the documentation above. I have repeated and performed the chnog portions of the physical exam and concur with the student's findings. I agree with the plan as noted above with any changes made as necessary. George Pisano MD Mud Logger Resident PGY-1 04/10/24 9:39 AM Cosigned by [...] unless otherwise specified. documented in this encounter [facility] 04-09-2024 Plan of care note Problem: Pain Goal: Patient goal is pain score less than 4, able to rest, and participant in treatment plan as appropriate Description: INTERVENTIONS: 1. Encourage patient or legal manufacturers representative to report early pain and ask [...] per policy 9. Teach patient or legal manufacturers representative interventions for comforting Outcome: Progressing Note: [...] at the bedside 7. Instruct patient/ patient manufacturers representative about use of safety devices 8. Include patient/ patient manufacturers representative in decisions related to safety Outcome: [...] hygiene technique. 7. Identify and instruct patient/patient manufacturers representative in use of appropriate isolation precautions for identified infection/symptoms. 8. Provide and discuss with patient/patient manufacturers representative on educational MDRO sheet. 9. Encourage and monitor nutritional status daily and consult sas programmer analyst if indicated. 10. Implement neutropenic guidelines as needed. Outcome: Progressing Note: Evaluation of progress towards goal: Standard precautions and hand hygiene used to prevent infection Problem: Knowledge Deficit Goal: Patient/patient manufacturers representative demonstrates understanding of disease process, treatment [...] Collaborate with ancillary departments 14. Include patient/patient manufacturers representative in decisions related to anxiety Outcome: [...] be free from fall Description: Interventions: 1. [place] to environment 2. Hourly rounds addressing the [...] non-skid footwear 11. Teach patient and patient manufacturers representative to maintain environment for safety and [...] (cane, walker) within reach 19. Request patient manufacturers representative bring adaptive equipment/mobility aids from home or obtain and provide as needed 20. Consult pharmacy regarding effects of med's affecting mobility, cognition, and alternatives 21. Obtain physician order for PT if risk factors associated with mobility are present 22. Obtain physician order for OT as appropriate 23. Utilize diversional activities 24. Educate patient and patient manufacturers representative how to maintain a safe environment during visitation times (notify nurse prior to leaving bedside) 25. Consider appropriateness of medical or non-pesticide use medical coordinator 26. Set up voiding schedule as appropriate [...] 6. Collaborate with pastoral/spiritual care, social work lecturer, mental health counselor as needed. 7. Instruct patient on diversional activities such as physical activity, distraction, and deep breathing exercises to assist with coping 8. Involve patient's manufacturers representative in care Outcome: Completed Note: Evaluation of progress towards goal: completed [facility] 04-09-2024 Progress note Formatting of t his note might be different from the original. DISCHARGE PLANNING NOTE Update: [facility] unable to accept. Referrals for [facility] per patient choice sent. Waiting on reply. - Nicky Buchanan RN 04/09/24 2:59 PM [facility] 04-09-2024 Progress note Formatting of t his note is different from the original. DISCHARGE PLANNING NOTE Conditioner Tumbler Operator met with patient, introduced self, and explained role. Patient educated on safe discharge plan. Pt admitted 04/08/2024 with Abdominal wall cellulitis [L03.311] Sepsis ([facility] [A41.9] Postoperative surgical complication involving genitourinary system [...] 03/25/2024 Prolonged emergence from general anesthesia Seizure ([facility]) Last one 03-11-2024 Prior to admission patient was living with family and self care. Medical equipment patient used prior to admission includes: None. Patient denies need for transportation/ food/ prescription medication assistance resources. Patient lives with minor children and boyfriend. Has support from mother. Referral sent to [facility] per patient choice- her daughter has used them before. PCP: CORINE GOLD MD Pharmacy:[facility] in [place] PCP and pharmacy confirmed with patient. CN offered to assist with follow up appointment arrangements; patient declines - states will self-schedule follow up appointments. CORINE GOLD MD added to Follow Up Providers for Summary of Care communication. Per patient self-report: Drug use: no Smoking: no ETOH Use: no Current discharge plan is: Home with [facility] for [facility] care Services Requested: Services Requested Patient expects to be discharged to:: home Discharge Disposition: Home with home health services Does the patient need discharge transportation arranged?: No Patient choice offered: Yes List Provided: Yes [facility] List Provided: Home Care Visiting Physician/Provider: Muhamid Goals: Goals home (pt-stated) Evaluation of progress towards goal: Patient stated goal is to return home with [facility] for assistance with wound care Will continue to follow as plan of care develops. CN discussed benefits and importance of medication compliance and follow ups. Please feel free to reach out for any discharge planning questions. - Nicky Buchanan RN 04/09/24 10:46 AM [facility] 04-09[facility] Consult note Formatting of th [...] injury to the rectum who presents to [facility] ED due to abdominal pain that [...] day course of clindamycin. She went to [place] ED yesterday and was given 1 dose [...] 03/25/2024 Prolonged emergence from general anesthesia Seizure ([facility]) Last one 03-11-2024 Past Surgical History: Past Surgical History: Procedure Laterality Date APPENDECTOMY SECTION CHOLECYST[facility]OMY [facility] LYSIS OF ADHESIONS N/A 03/28/2024 Performed by Mundo Martinez MD at [facility] LYSIS OF ADHESIONS N/A 03/28/2024 Performed by Jesse Sultana MD at [place] [id number] [place] OOPHORECTOMY/FROZEN SECTION Bilateral 03/28/2024 Performed by Mundo Martinez MD at [facility] DILATION AND CURETTAGE OF UTERUS PARTIAL [...] mg, 5 mg, oral, Q4H PRN, Katina Blokc DO, 5 mg at 04/09/24 0704 sodium [...] Physical Activity: Insufficiently Active (01/23/2024) Received from [facility] Exercise Vital Sign Days of Exercise per Week: 7 days Minutes of Exercise per Session: 10 min Stress: Stress Concern Present (01/23/2024) Received from [facility] [employer] - Occupational Stress Questionnaire Feeling of Stress : Rather much Social Connections: Socially Integrated (01/23/2024) Received from [facility] Social Connection and Isolation Panel [NHANES] Frequency of Communication with Friends and Family: More than three times a week Frequency of Social Gatherings with Friends and Family: Twice a week Attends Confucianist Services: More than 4 times per year [...] If questions or concerns, please contact via [facility] pager at [phone]. Resident Attestation I have seen and evaluated the patient, and have also reviewed the documentation above. I have repeated and performed the chong portions of the physical exam and concur with the student's findings. I agree with the plan as noted above with any changes made as necessary. George Pisano MD Mud Logger Resident PGY-1 04/09/24 7:52 AM Cosigned by [...] Will initiate transdermal estrogen for vasomotor symptoms. [facility] [email or web address] [facility] 04-09-2024 Plan of care note Problem: Pain Goal: Patient goal is pain score less than 4, able to rest, and participant in treatment plan as appropriate Description: INTERVENTIONS: 1. Encourage patient or legal manufacturers representative to report early pain and ask [...] per policy 9. Teach patient or legal manufacturers representative interventions for comforting Outcome: Progressing Note: Evaluation of progress towards goal: pt in abd pain. Elin and saleem godfrey Problem: Safety Goal: Patient will be injury free during hospitalization Description: INTERVENTIONS: 1. Assess patient's risk for falls and implement fall prevention plan of care per policy 2. Provide and maintain a safe environment 3. Proper use of double Identifiers 4. Medication administration using the 5 rights 5. Hand hygiene 6. Specimens are labeled at the bedside 7. Instruct patient/ patient manufacturers representative about use of safety devices 8. Include patient/ patient manufacturers representative in decisions related to safety Outcome: [...] hygiene technique. 7. Identify and instruct patient/patient manufacturers representative in use of appropriate isolation precautions for identified infection/symptoms. 8. Provide and discuss with patient/patient manufacturers representative on educational MDRO sheet. 9. Encourage and monitor nutritional status daily and consult sas programmer analyst if indicated. 10. Implement neutropenic guidelines as needed. Outcome: Progressing Note: Evaluation of progress towards goal: on iv atb. Cont to trend labs.fevers Problem: Knowledge Deficit Goal: Patient/patient manufacturers representative demonstrates understanding of disease process, treatment [...] Collaborate with ancillary departments 14. Include patient/patient manufacturers representative in decisions related to anxiety Outcome: [...] 6. Collaborate with pastoral/spiritual care, social work lecturer, mental health counselor as needed. 7. Instruct patient on diversional activities such as physical activity, distraction, and deep breathing exercises to assist with coping 8. Involve patient's manufacturers representative in care Outcome: Progressing Note: Evaluation of progress towards goal: able to voice concerns. Problem: Moderate - High Risk Fall Score Description: Nath Fall Score of =/> 25 or indicated by [facility] Assessment Goal: Patient should be free from fall Description: Interventions: 1. [place] to environment 2. Hourly rounds addressing the [...] non-skid footwear 11. Teach patient and patient manufacturers representative to maintain environment for safety and [...] (cane, walker) within reach 19. Request patient manufacturers representative bring adaptive equipment/mobility aids from home or obtain and provide as needed 20. Consult pharmacy regarding effects of med's affecting mobility, cognition, and alternatives 21. Obtain physician order for PT if risk factors associated with mobility are present 22. Obtain physician order for OT as appropriate 23. Utilize diversional activities 24. Educate patient and patient manufacturers representative how to maintain a safe environment during visitation times (notify nurse prior to leaving bedside) 25. Consider appropriateness of medical or non-pesticide use medical coordinator 26. Set up voiding schedule as appropriate (every 2 hours) Outcome: Progressing Note: Evaluation of progress towards goal: free from falls, cont to use nonskid footwear with ambulation. Pt instructed to call out when appropriate to aid with ambulation [facility] 04-09-2024 Consult note Formatting of th [...] injury to the rectum who presents to [facility] ED due to abdominal pain that [...] day course of clindamycin. She went to [place] ED yesterday and was given 1 dose [...] 03/25/2024 Prolonged emergence from general anesthesia Seizure ([facility]) Last one 03-11-2024 Past Surgical History: Past Surgical History: Procedure Laterality Date APPENDECTOMY SECTION CHOLECYSTECTOMY [facility] LYSIS OF ADHESIONS N/A 03/28/2024 [facility] LYSIS OF ADHESIONS N/A 03/28/2024 Performed by Jesse Sultana MD at [facility] [place] OOPHORECTOMY/FROZEN SECTION Bilateral 03/28/2024 Performed by Mundo Martinez MD at [facility] DILATION AND CURETTAGE OF UTERUS PARTIAL [...] 600 mg, 600 mg, oral, Nightly, Katina Block, DO, 600 mg at 04/08/24 2218 ondansetron ODT (ZOFRAN ODT) disintegrating tablet 4 mg, 4 mg, oral, Q8H PRN, Katina Block, DO oxyCODONE (ROXICODONE) immediate release tablet 5 mg, 5 mg, oral, Q4H PRN, Katina Block, DO, 5 mg at 04/09/24 0704 sodium chloride 0.9 % flush 10 mL, 10 mL, intravenous, PRN, Yordy Guardadoorest, DO, 10 mL at 04/08/24 1525 traZODone (DESYREL) tablet 300 mg, 300 mg, oral, Nightly, Katina Block, DO, 300 mg at 04/09/24 0117 Social [...] Physical Activity: Insufficiently Active (01/23/2024) Received from [facility] Exercise Vital Sign Days of Exercise per Week: 7 days Minutes of Exercise per Session: 10 min Stress: Stress Concern Present (01/23/2024) Received from [facility] [employer] - Occupational Stress Questionnaire Feeling of Stress : Rather much Social Connections: Socially Integrated (01/23/2024) Received from [facility] Social Connection and Isolation Panel [NHANES] Frequency of Communication with Friends and Family: More than three times a week Frequency of Social Gatherings with Friends and Family: Twice a week Attends Confucianist Services: More than 4 times per year [...] If questions or concerns, please contact via [facility] pager at [phone]. Resident Attestation I have seen and evaluated the patient, and have also reviewed the documentation above. I have repeated and performed the chong portions of the physical exam and concur with the student's findings. I agree with the plan as noted above with any changes made as necessary. George Pisano MD Mud Logger Resident PGY-1 04/09/24 7:52 AM Cosigned by [...] 03/25/2024 Prolonged emergence from general anesthesia Seizure ([facility]) Last one 03-11-2024 Past Surgical History: Procedure Laterality Date APPENDECTOMY SECTION CHOLECYSTECTOMY [facility] LYSIS OF ADHESIONS N/A 03/28/2024 Performed by Mundo Martinez MD at [facility] LYSIS OF ADHESIONS N/A 03/28/2024 Performed by Jesse Sultana MD at [facility]5 [place] OOPHORECTOMY/FROZEN SECTION Bilateral 03/28/2024 Performed by Mundo Martinez MD at [facility] DILATION AND CURETTAGE OF UTERUS PARTIAL [...] to allergen)., Disp: 2 each, Rfl: 1 wizffbcfqqk-bxjxscaqj-jjglpmlh (TRELEGY ELLIPTA) 200-62.5-25 mcg blister with device, [...] Resource Strain: Low Risk (01/23/2024) Received from [facility] Overall Financial Resource Strain (CARDIA) Difficulty of Paying Living Expenses: Not very hard Food Insecurity: No Food Insecurity (02/09/2024) Hunger Screening Food Insecurity - Worry: Never True Food Insecurity - Inability: Never True Transportation Needs: Unknown (01/23/2024) Received from [facility] PRAPARE - Transportation Lack of Transportation (Medical): Patient declined Lack of Transportation (Non-Medical): No Physical Activity: Insufficiently Active (01/23/2024) Received from [facility] Exercise Vital Sign Days of Exercise per Week: 7 days Minutes of Exercise per Session: 10 min Stress: Stress Concern Present (01/23/2024) Received from [facility] [employer] - Occupational Stress Questionnaire Feeling of Stress : Rather much Social Connections: Socially Integrated (01/23/2024) Received from [facility] Social Connection and Isolation Panel [NHANES] Frequency of Communication with Friends and Family: More than three times a week Frequency of Social Gatherings with Friends and Family: Twice a week Attends Confucianist Services: More than 4 times per year Active Member of Clubs or Organizations: Yes Attends Club or Organization Meetings: More than 4 times per year Marital Status: Living with partner Interpersonal Safety: Not on file Housing Instability: Low Risk (01/23/2024) Received from [facility] Housing Stability Vital Sign Unable to Pay [...] General Surgery B 6a - 6p Pager: [phone] 6p - 6a Pager: [phone] Cosigned by Benjamin Francis MD at 04/09/2024 9:48 AM EST Associated attestation - Benjamin Francis MD - 04/09/2024 9:48 AM EST Attending attestation: I reviewed the resident's note and discussed the case with the resident. Additional findings/notes: Local wound care. Will sign-off. Benjamin Francis MD, [facility] General Surgery and Minimally Invasive Surgery [address] [place] [address], [address] [place] [address] Office: documented in this encounter [facility] 04-09-2024 Plan of care note Problem: Pain Goal: Patient goal is pain score less than 4, able to rest, and participant in treatment plan as appropriate Description: INTERVENTIONS: 1. Encourage patient or legal manufacturers representative to report early pain and ask [...] per policy 9. Teach patient or legal manufacturers representative interventions for comforting Note: Evaluation of [...] at the bedside 7. Instruct patient/ patient manufacturers representative about use of safety devices 8. Include patient/ patient manufacturers representative in decisions related to safety Note: [...] hygiene technique. 7. Identify and instruct patient/patient manufacturers representative in use of appropriate isolation precautions for identified infection/symptoms. 8. Provide and discuss with patient/patient manufacturers representative on educational MDRO sheet. 9. Encourage and monitor nutritional status daily and consult sas programmer analyst if indicated. 10. Implement neutropenic guidelines as needed. Note: Evaluation of progress towards goal: Wound culture pending. Iv zosyn, vanco, and flagyl administered 04/08. Problem: Knowledge Deficit Goal: Patient/patient manufacturers representative demonstrates understanding of disease process, treatment [...] Collaborate with ancillary departments 14. Include patient/patient manufacturers representative in decisions related to anxiety Note: [...] 6. Collaborate with pastoral/spiritual care, social work lecturer, mental health counselor as needed. 7. Instruct patient on diversional activities such as physical activity, distraction, and deep breathing exercises to assist with coping 8. Involve patient's manufacturers representative in care Note: Evaluation of progress towards goal: Emotional support provided by RN and pts [facility] 04-08-2024 Procedure note PROCEDURE NOTE INCISION AND [...] I reviewed the resident's note. Additional Notes/Findings: [facility] 04-08-2024 Procedure note PROCEDURE NOTE INCISION AND [...] note. Additional Notes/Findings: documented in this encounter [facility] 04-08-2024 Consult note Formatting of th is [...] 03/25/2024 Prolonged emergence from general anesthesia Seizure ([facility]) Last one 03-11-2024 Past Surgical History: Procedure Laterality Date APPENDECTOMY SECTION CHOLECYSTECTOMY [facility] LYSIS OF ADHESIONS N/A 03/28/2024 Performed by Mundo Martinez MD at [facility] LYSIS OF ADHESIONS N/A 03/28/2024 Performed by Jesse Sultana MD at [facility] [place] OOPHORECTOMY/FROZEN SECTION Bilateral 03/28/2024 Performed by Mundo Martinez MD at [facility] DILATION AND CURETTAGE OF UTERUS PARTIAL [...] to allergen)., Disp: 2 each, Rfl: 1 swvgwavroya-uzedmmdrz-ovvbpxge (TRELEGY ELLIPTA) 200-62.5-25 mcg blister with device, [...] Resource Strain: Low Risk (01/23/2024) Received from [facility] Overall Financial Resource Strain (CARDIA) Difficulty of Paying Living Expenses: Not very hard Food Insecurity: No Food Insecurity (02/09/2024) Hunger Screening Food Insecurity - Worry: Never True Food Insecurity - Inability: Never True Transportation Needs: Unknown (01/23/2024) Received from [facility] PRAPARE - Transportation Lack of Transportation (Medical): Patient declined Lack of Transportation (Non-Medical): No Physical Activity: Insufficiently Active (01/23/2024) Received from [facility] Exercise Vital Sign Days of Exercise per Week: 7 days Minutes of Exercise per Session: 10 min Stress: Stress Concern Present (01/23/2024) Received from [facility] [employer] - Occupational Stress Questionnaire Feeling of Stress : Rather much Social Connections: Socially Integrated (01/23/2024) Received from [facility] Social Connection and Isolation Panel [NHANES] Frequency of Communication with Friends and Family: More than three times a week Frequency of Social Gatherings with Friends and Family: Twice a week Attends Confucianist Services: More than 4 times per year Active Member of Clubs or Organizations: Yes Attends Club or Organization Meetings: More than 4 times per year Marital Status: Living with partner Interpersonal Safety: Not on file Housing Instability: Low Risk (01/23/2024) Received from [facility] Housing Stability Vital Sign Unable to Pay [...] General Surgery B 6a - 6p Pager: [phone] 6p - 6a Pager: [phone] Cosigned by Benjamin Francis MD at 04/09/2024 9:48 AM EST Associated attestation - Benjamin Francis MD - 04/09/2024 9:48 AM EST Attending attestation: I reviewed the resident's note and discussed the case with the resident. Additional findings/notes: Local wound care. Will sign-off. Benjamin Francis MD, FACS General Surgery and Minimally Invasive Surgery [address], [address] [place] [address] Office: [facility] Work Phone: 04-08-2024 Physician Emergency department Note Images from the original note were not included. [facility] - EMERGENCY DEPARTMENT Pt Name: April [...] states that she was recently evaluated at [facility] yesterday and was given Keflex and recommended [...] 03/25/2024 Prolonged emergence from general anesthesia Seizure ([facility]) Last one 03-11-2024 Past Surgical History: Past Surgical History: Procedure Laterality Date APPENDECTOMY SECTION [facility]LECYSTECTOMY [facility] LYSIS OF ADHESIONS N/A 03/28/2024 Performed by Mundo Martinez MD at [facility] LYSIS OF ADHESIONS N/A 03/28/2024 Performed by Jesse Sultana MD at [facility] [place] OOPHORECTOMY/FROZEN SECTION Bilateral 03/28/2024 Performed by Mundo Martinez MD at [facility] DILATION AND CURETTAGE OF UTERUS PARTIAL [...] Physical Activity: Insufficiently Active (01/23/2024) Received from [facility] Exercise Vital Sign Days of Exercise per Week: 7 days Minutes of Exercise per Session: 10 min Stress: Stress Concern Present (01/23/2024) Received from [facility] [employer] - Occupational Stress Questionnaire Feeling of Stress : Rather much Social Connections: Socially Integrated (01/23/2024) Received from [facility] Social Connection and Isolation Panel [NHANES] Frequency of Communication with Friends and Family: More than three times a week Frequency of Social Gatherings with Friends and Family: Twice a week Attends Confucianist Services: More than 4 times per year [...] nursing note reviewed. Exam conducted with a refinish technician present. Constitutional: General: She is in [...] intravenous Given 04/08/241639) lidocaine-EPINEPHrine (XYLOCAINE W/EPI) 1 %-1:[id number] injection 30 mL (20 mL intradermal Given [...] and physical exam, pt requires admission to [facility] for IV antibiotics, pain control, general surgery [...] [JR] 1322 Pain Score: 10 [JR] 1406 [facility] evaluating patient at bedside [JR] 1413 X-ray [...] 12 lead Sinus tachycardia, heart rate 103, IL interval 134, QRS 75, QTC 427. No [...] notes hat she was recently evaluated at [facility] [place] yesterday and was given Keflex and recommended [...] 4:29 PM Comment Diagnosis: Abdominal wall cellulitis [[id number]] Attending Provider: MILAD HERNANDEZ [[id number]] Estimated length of stay?: >2 midnights/In-patient only [...] Resident Attestation: IDr. Melton personally performed a [id number] diagnostic evaluation on this patient. I have [...] Resident 04/08/242000 Yordy Melton DO 04/09/24 0734 [facility] Work Phone: 04-08-2024 Emergency department Note Images from the original note were not included. [facility] - EMERGENCY DEPARTMENT Pt Name: April [...] states that she was recently evaluated at [facility] [place] yesterday and was given Keflex and recommended [...] 03/25/2024 Prolonged emergence from general anesthesia Seizure ([facility]) Last one 03-11-2024 Past Surgical History: Past Surgical History: Procedure Laterality Date APPENDECTOMY SECTION CHOLECYSTECTOMY [facility] LYSIS OF ADHESIONS N/A 03/28/2024 Performed by Mundo Martinez MD at [id number] LYSIS OF ADHESIONS N/A 03/28/2024 Performed by Jesse Sultana MD at [facility]5 SALPINGO OOPHORECTOMY/FROZEN SECTION Bilateral 03/28/2024 Performed by Mundo Martinez MD at [facility] CURETTAGE OF UTERUS PARTIAL [...] Physical Activity: Insufficiently Active (01/23/2024) Received from [facility] Exercise Vital Sign Days of Exercise per Week: 7 days Minutes of Exercise per Session: 10 min Stress: Stress Concern Present (01/23/2024) Received from [facility] [employer] - Occupational Stress Questionnaire Feeling of Stress : Rather much Social Connections: Socially Integrated (01/23/2024) Received from [facility] Social Connection and Isolation Panel [NHANES] Frequency of Communication with Friends and Family: More than three times a week Frequency of Social Gatherings with Friends and Family: Twice a week Attends Confucianist Services: More than 4 times per year [...] nursing note reviewed. Exam conducted with a refinish technician present. Constitutional: General: She is in [...] Given 04/08/24 1640) lidocaine-EPINEPHrine (XYLOCAINE W/EPI) 1 %-1:[id number] injection 30 mL (20 mL intradermal Given [...] and physical exam, pt requires admission to [facility] for IV antibiotics, pain control, general surgery [...] [JR] 1322 Pain Score: 10 [JR] 1406 [facility] evaluating patient at bedside [JR] 1413 X-ray [...] 12 lead Sinus tachycardia, heart rate 103, IL interval 134, QRS 75, QTC 427. No [...] notes hat she was recently evaluated at [facility] yesterday and was given Keflex and recommended [...] 4:29 PM Comment Diagnosis: Abdominal wall cellulitis [[id number]] Attending Provider: MILAD HERNANDEZ [[id number]] Estimated length of stay?: >2 midnights/In-patient only [...] Attestation: I, Dr. Melton personally performed a [id number] diagnostic evaluation on this patient. I have [...] labs in back. documented in this encounter [facility] 04-08-2024 Emergency department Note Pt tearful in triage, lots of recent blood draws, requesting labs in back. [facility] 04-08-2024 Miscellaneous Notes Patient called reporting persistent fever of 105 F that is not reducing with medication. She has been to the ED in [place] multiple times and has been sent home every time. She also reports pain and green drainage from her surgical incision. Spoke to Svetlana Ye PA-C; she recommends that patient visit [facility] ED and and wants to inform patient that our team and residents will be able to round on her there. Patient is agreeable to plan. documented in this encounter [facility] 04-08-2024 Telephone encounter Note Patient called reporting persistent fever of 105 F that is not reducing with medication. She has been to the ED in [place] multiple times and has been sent home every time. She also reports pain and green drainage from her surgical incision. Spoke to Svetlana Ye PA-C; she recommends that patient visit [facility] ED and and wants to inform patient that our team and residents will be able to round on her there. Patient is agreeable to plan. [facility] 04-02-2024 History of Present illness Narrative Eyad [...] in female 12/19/2022 Mixed bipolar I disorder ([facility]) 01/24/2023 Chronic migraine without aura without status migrainosus, not intractable ([facility]) 01/24/2023 Generalized anxiety disorder ([facility]CC) 01/24/2023 Persistent disorder of initiating or maintaining sleep 01/24/2023 Mild persistent asthma ([facility]) 01/24/2023 Polycystic ovaries 01/24/2023 Psychogenic nonepileptic seizure ([facility]) 01/24/2023 Class 3 severe obesity due to excess calories without serious comorbidity with body mass index (BMI) of 50.0 to 59.9 in adult ([facility]) 03/21/2023 Mild persistent asthma with (acute) exacerbation ([facility]) 10/10/2023 Fatigue 01/01/2024 Encounter for long-term [...] Acute exacerbation of asthma with allergic rhinitis ([facility]) Allergies Asthma ([facility]) At low risk for fall Bipolar affective, mixed (HCC) ([facility]) Change in blood pressure Cholecystitis 2008 Depressive disorder ([facility]) OMID (generalized anxiety disorder) ([facility]) History of hysterectomy 10/01/2021 Insomnia, persistent Migraines ([facility]) Mild persistent asthma without complication ([facility]) Morbid obesity with BMI of 40.0-44.9, adult ([facility]) PCOS (polycystic ovarian syndrome) Right otitis media Seizures ([facility]) HISTORY PAST MEDICAL HISTORY SOCIAL HISTORY Past Medical History: Diagnosis Date Acute exacerbation of asthma with allergic rhinitis ([facility]) Allergies Asthma ([facility]) At low risk for fall Bipolar affective, mixed (HCC) ([facility]) Change in blood pressure high and low Cholecystitis 2008 Chronic migraine without aura without status migrainosus, not intractable ([facility]) Depressive disorder ([facility]) OMID (generalized anxiety disorder) ([facility]) History of hysterectomy 10/01/2021 Insomnia, persistent Migraines ([facility]) Mild persistent asthma without complication ([facility]) Morbid obesity with BMI of 40.0-44.9, adult ([facility]) PCOS (polycystic ovarian syndrome) Psychogenic nonepileptic seizure [...] nursing note reviewed. Exam conducted with a refinish technician present. Vitals: Estimated body mass index [...] Zay Blas DO documented in this encounter [facility] 04-01-2024 Miscellaneous Notes Images from the original note were not included. Medication Received: Yesterday April Nicholson [facility] Gen Surg [facility] Clinical Staff good afternoon I m still in a [...] see how she was feeling today. Our LIQUID CENTER ASSEMBLER wanted to make sure that she's not having any nausea, vomiting, fever or chills. The patient didn't answer, so I left her a message. documented in this encounter [facility] 04-01-2024 Telephone encounter Note Images from the original note were not included. Medication Received: Yesterday April Nicholson Gen Surg [facility] Clinical Staff good afternoon I m still in a [...] see how she was feeling today. Our LIQUID CENTER ASSEMBLER wanted to make sure that she's not having any nausea, vomiting, fever or chills. The patient didn't answer, so I left her a message. [facility] 04-01-2024 History of Present illness Narrative Dontrell [...] Cintron 04/01/24 1107 documented in this encounter [facility] 04-01-2024 Miscellaneous Notes Patient had surgery on [...] to Svetlana MALONE Oxycodone refilled by Junior HERNANDEZ. TC to April to let her know. Reminded her of post op restrictions,, medication safety, and alternating with ibuprofen .She states she does not have Ibuprofen. Message to Svetlana to prescribe. Acknowledged understanding She states her mom is now helping her with her sick child. documented in this encounter [facility] 04-01-2024 Telephone encounter Note Patient had surgery on 2/6. lysis of adhesions, bilateral salpingo-oophorectomy. She has taken all her pain meds and is requesting more. States has been taking care of her sick child and carrying her which has increased her pain. Has been taking oxycodone every 4 hours due to that. Looks like she messaged general surgery yesterday asking for pain meds also. Message to Svetlana [facility]NDEZ. [facility] Note Oxycodone refilled by Junior HERNANDEZ. TC to April to let her know. Reminded her of post op restrictions,, medication safety, and alternating with ibuprofen .She states she does not have Ibuprofen. Message to Svetlana to prescribe. Acknowledged understanding She states her mom is now helping her with her sick child. [facility] [email or web address] [facility] 03-25-2024 Instructions Mari Saldaña RN - 03/25/2024 2:15 PM EST Your surgery/procedure is scheduled at [facility] on 03-28-2024 at 9am Arrival Time: 7am [facility] Address: [address] [place] [address]. [place] [address] [address] Parking lot located on [facility]. Report to the Entrance B. Check in at the information desk the surgery. The waiting room located on the second floor. If you have any questions prior to surgery, please call Pre-Admission Clinic at [phone] between 7:30 am and 4:30 pm Monday through Monday. If you have questions the morning of surgery, please call the Pre-op Department at [phone]. Notify your SURGEON if you develop any [...] piercings ,hair extensions that contain metal, nail japanese, make-up, and contact lens. You may brush [...] AND RESPONSIBILITIES As a patient at [facility], you have the right to: Receive medical care and be informed of who is taking care of you Be treated with dignity and respect Have a family member/manufacturers representative of choice and your physician notified of your admission Receive information and actively participate in decisions about your care and treatment Refuse care, treatment and services Decide who may provide your support and speak for you Access evangelical and spiritual services Participate in ethical issues [...] of hospital charges and payment methods Patient/patient manufacturers representative responsibilities are to: Provide information about [...] in clean clothes. documented in this encounter [facility] 03-21-2024 Miscellaneous Notes ----- Message from Dr. Mundo Martinez MD sent at 03/21/2024 11:39 AM EST ----- Should be ok ----- Message ----- From: Nicky Zapata Sent: 03/21/2024 9:43 AM EST To: Mundo Martinez MD Pt is going up to the [facility] tomorrow and getting migraine infusion Vyepti infusion for migranies, during the infusion pt will get Toradol and benadryl, patient has surgery next week and she wants to make sure this infusion is ok to take and will not delay surgery, please advise. Pt was notified of Dr. aMrtinez response documented in this encounter [facility] 03-21-2024 Telephone encounter Note ----- Message from Dr. Mundo Martinez MD sent at 03/21/2024 11:39 AM EST ----- Should be ok ----- Message ----- From: Nicky Zapata Sent: 03/21/2024 9:43 AM EST To: Mundo Martinez MD Pt is going up to the [facility] tomorrow and getting migraine infusion Vyepti infusion for migranies, during the infusion pt will get Toradol and benadryl, patient has surgery next week and she wants to make sure this infusion is ok to take and will not delay surgery, please advise. [facility] 03-21-2024 Telephone encounter Note Pt was notified of Dr. Martinez response [facility] 03-21-2024 Note HNO ID: [id number] Author: SAGAR BARTH APRN.LIQUID CENTER ASSEMBLER Service: ? Author Type: Nurse Practitioner Type: [...] visit. Either the patient or their legal manufacturers representative has been informed of the risks [...] XL, Qudexy) Anti-Depressant and Antipsychotic Amitriptyline (Elavil) [place] (Eskalith, Lithobid) Nortriptyline (Pamelor, Aventyl) Anti-Migraine Dihydroergotamine [...] ZOLMitriptan (ZOMIG) 5 mg nasal sprayUse 1 [place] in the nose as needed at onset [...] by mouth ann (more content not included)... [facility] 03-21-2024 History of Present illness Narrative [...] visit. Either the patient or their legal manufacturers representative has been informed of the risks [...] XL, Qudexy) Anti-Depressant and Antipsychotic Amitriptyline (Elavil) [place] (Eskalith, Lithobid) Nortriptyline (Pamelor, Aventyl) Anti-Migraine Dihydroergotamine [...] ZOLMitriptan (ZOMIG) 5 mg nasal spray^Use 1 [place] in the nose as needed at onset [...] these with the patient: yes Sagar Barth APRN.LIQUID CENTER ASSEMBLER HEADACHE SCORES: 12/05/2023 01/17/2024 03/20/2024 Headache Questions [...] Lymph 1.00 - 4.00 k/uL 0.84 Abs [place] <0.87 k/uL 0.06 Abs Eosin <0.46 k/uL [...] spontaneous and fluent without dysarthria. Short and buttermaker continuous churn memory, cognition and general fund of knowledge [...] XL, Qudexy) Anti-Depressant and Antipsychotic Amitriptyline (Elavil) [place] (Eskalith, Lithobid) Nortriptyline (Pamelor, Aventyl) Blood Pressure [...] 30 minutes Sagar Barth APRN.CNP Headache Section [facility] March 21, 2024 documented in this encounter [facility] 03-20-2024 History of Present illness Narrative Images from the original note were not included. [facility] Patient - April Nicholson Age - 28 y.[facility]. [facility] 1995 [id number] Referring physician: Dr. Martinez Reason for Consultation: [...] previously seen pulmonary with Dr. Jason at [facility]. She has been treated with Trelegy 100 [...] MOUTH EVERY 4 HOURS NEEDED 06/07/22 Yes Derik Arthur APRN-INTERVIEWING CLERK ARIPiprazole (ABILIFY) 10 mg tablet Take 1 [...] (exposure to allergen). 06/07/22 Yes ELSIE Luke abbmlmpnilm-knfwyuutf-exopebue (TRELEGY ELLIPTA) 100-62.5-25 mcg blister with device [...] mouth in the morning. 06/07/22 Yes Derik Arthur, [place] INTERN-INTERVIEWING CLERK omeprazole (PriLOSEC) 20 mg capsule Take 1 capsule (20 mg total) by mouth in the morning. 01/27/22 Yes Alba Grace APRN-LIQUID CENTER ASSEMBLER ondansetron ODT (ZOFRAN ODT) 4 mg disintegrating [...] as needed (migraines). 10/29/20 Yes Ivy Zafar APRN-LIQUID CENTER ASSEMBLER scopolamine (TRANSDERM-SCOP) 1 mg/[address] 1 [...] chest is warranted. Dr. Vincent Peña DO. [facility] Office: [phone] documented in this encounter [facility] 03-18-2024 History of Present illness Narrative Subjective: [...] which is why she doesn't go to [place] or [place]. She has had diarrhea for the last [...] lot of steroids. She does have a claim service representative. Last hospitalized a couple years ago. Not [...] procedures Referring and communicating with other health patient care (not separately reported) Documenting clinical information in the electronic or other health record Independently interpreting results (not separately reported) and communicating results to the patient/family/caregiver Care coordination (not separately reported) [place] and lamictal, trazodone as needed MUNDO MARTINEZ MD documented in this encounter [facility] 03-06-2024 History of Present illness Narrative Reason [...] in female 12/19/2022 Mixed bipolar I disorder ([facility]) 01/24/2023 Chronic migraine without aura without status migrainosus, not intractable ([facility]) 01/24/2023 Generalized anxiety disorder ([facility]) 01/24/2023 Persistent disorder of initiating or maintaining sleep 01/24/2023 Mild persistent asthma ([facility]) 01/24/2023 Polycystic ovaries 01/24/2023 Psychogenic nonepileptic seizure ([facility]) 01/24/2023 Class 3 severe obesity due to excess calories without serious comorbidity with body mass index (BMI) of 50.0 to 59.9 in adult ([facility]) 03/21/2023 Mild persistent asthma with (acute) exacerbation ([facility]) 10/10/2023 Fatigue 01/01/2024 Encounter for long-term (current) [...] Acute exacerbation of asthma with allergic rhinitis ([facility]) Allergies Asthma ([facility]) At low risk for fall Bipolar affective, mixed (HCC) ([facility]) Change in blood pressure Cholecystitis 2008 Depressive disorder ([facility]) OMID (generalized anxiety disorder) ([facility]) History of hysterectomy 10/01/2021 Insomnia, persistent Migraines ([facility]) Mild persistent asthma without complication ([facility]) Morbid obesity with BMI of 40.0-44.9, adult ([facility]) PCOS (polycystic ovarian syndrome) Right otitis media Seizures ([facility]) HISTORY PAST MEDICAL HISTORY SOCIAL HISTORY Past Medical History: Diagnosis Date Acute exacerbation of asthma with allergic rhinitis ([facility]) Allergies Asthma ([facility]) At low risk for fall Bipolar affective, mixed (HCC) ([facility]) Change in blood pressure high and low Cholecystitis 2008 Chronic migraine without aura without status migrainosus, not intractable ([facility]) Depressive disorder ([facility]) OMID (generalized anxiety disorder) ([facility]) History of hysterectomy 10/01/2021 Insomnia, persistent Migraines ([facility]) Mild persistent asthma without complication ([facility]) Morbid obesity with BMI of 40.0-44.9, adult ([facility]) PCOS (polycystic ovarian syndrome) Psychogenic nonepileptic seizure ([facility]) Right otitis media Seizures ([facility]) stressed induced Social History Tobacco Use [...] nursing note reviewed. Exam conducted with a refinish technician present. Vitals: Estimated body mass index [...] Zay Blas DO documented in this encounter [facility] 02-28-2024 History of Present illness Narrative Reason [...] in female 12/19/2022 Mixed bipolar I disorder ([facility]) 01/24/2023 Chronic migraine without aura without status migrainosus, not intractable ([facility]) 01/24/2023 Generalized anxiety disorder ([facility]) 01/24/2023 Persistent disorder of initiating or maintaining sleep 01/24/2023 Mild persistent asthma ([facility]) 01/24/2023 Polycystic ovaries 01/24/2023 Psychogenic nonepileptic seizure ([facility]) 01/24/2023 Class 3 severe obesity due to excess calories without serious comorbidity with body mass index (BMI) of 50.0 to 59.9 in adult ([facility]) 03/21/2023 Mild persistent asthma with (acute) exacerbation ([facility]) 10/10/2023 Fatigue 01/01/2024 Encounter for long-term [...] Acute exacerbation of asthma with allergic rhinitis ([facility]) Allergies Asthma ([facility]) At low risk for fall Bipolar affective, mixed (HCC) ([facility]) Change in blood pressure Cholecystitis 2009 Depressive disorder ([facility]) OMID (generalized anxiety disorder) ([facility]) History of hysterectomy 10/01/2021 Insomnia, persistent Migraines (CMS/HCC) Mild persistent asthma without complication ([facility]) Morbid obesity with BMI of 40.0-44.9, adult ([facility]) PCOS (polycystic ovarian syndrome) Right otitis media Seizures ([facility]) HISTORY PAST MEDICAL HISTORY SOCIAL HISTORY Past Medical History: Diagnosis Date Acute exacerbation of asthma with allergic rhinitis ([facility]) Allergies Asthma ([facility]) At low risk for fall Bipolar affective, mixed (HCC) ([facility]) Change in blood pressure high and low Cholecystitis 2008 Chronic migraine without aura without status migrainosus, not intractable ([facility]) Depressive disorder ([facility]) OMID (generalized anxiety disorder) ([facility]) History of hysterectomy 10/01/2021 Insomnia, persistent Migraines ([facility] [facility]) Mild persistent asthma without complication ([facility]) Morbid obesity with BMI of 40.0-44.9, adult ([facility]) PCOS (polycystic ovarian syndrome) Psychogenic nonepileptic seizure ([facility]) Right otitis media Seizures ([facility]) stressed induced Social History Tobacco Use [...] nursing note reviewed. Exam conducted with a refinish technician present. Vitals: Estimated body mass index [...] Zay Blas DO documented in this encounter [facility] 02-26-2024 Telephone encounter Note Pt advised [facility] 02-26-2024 Miscellaneous Notes Pt advised [facility]BLE TP ACCEPT PT Patients elizabeth harmon is gma and they are both pts of DB. She wondered if she could become a welfare officer here with us. And if not db she asked for dominic. Pt does know we are not accepting new patients but asked if I could send this back - was told no on Monday. documented in this encounter [facility] 02-26-2024 Telephone encounter Note UNABLE TP ACCEPT PT [facility] 02-26-2024 Telephone encounter Note Patients elizabeth harmon is gma and they are both pts of DB. She wondered if she could become a welfare officer here with us. And if not db she asked for dominic. Pt does know we are not accepting new patients but asked if I could send this back - was told no on Monday. [facility] 02-22-2024 Telephone encounter Note Summary: PA Zolmitriptan Images from the original note were not included. Prior Authorization submitted via Adwanted on 02/22/2024: Insurance: [place] Medicaid Medication: Zolmitriptan Chong Code: [id number] Awaiting Response [facility] 02-22-2024 Miscellaneous Notes Summary: PA Zolmitriptan Images from the original note were not included. Prior Authorization submitted via CoverMyMeds on 02/22/2024: Insurance: [place] Medicaid Medication: Zolmitriptan Chong Code: [id number] Awaiting Response documented in this encounter [facility] 02-09-2024 History of Present illness Narrative Associated Problem(s): Mild persistent asthma with (acute) exacerbation ([facility]) Recent flare but not able to [...] wo IV contrast documented in this encounter [facility] 01-30-2024 Note Addended by: SAGAR BARTH on: 01/30/2024 02:59 PM Modules accepted: Orders [facility] 01-30-2024 Telephone encounter Note The following approved medication requests have been transmitted electronically. Requested Prescriptions Signed Prescriptions Disp Refills ZOLMitriptan (ZOMIG) 5 mg nasal spray 12 Each 5 Sig: Use 1 [place] in the nose as needed at onset of migraine headache. If symptoms persist or return, may repeat dose in other nostril after 2 hours. Maximum of 2 sprays per 24 hours Authorizing Provider: SAGAR BARTH APRN.CNP [facility] 01-30-2024 Miscellaneous Notes Addended by: SAGAR BARTH on: 01/30/2024 02:59 PM Modules accepted: Orders The following approved medication requests have been transmitted electronically. Requested Prescriptions Signed Prescriptions Disp Refills ZOLMitriptan (ZOMIG) 5 mg nasal spray 12 Each 5 Sig: Use 1 [place] in the nose as needed at onset [...] Each 5 11/10/2023 -- Sig: Use 1 [place] in the nose as needed at onset [...] to verify quantity on zolmitriptan. Callback number: [phone] documented in this encounter [facility] 01-30-2024 Telephone encounter Note Dispense 12 pls. I rewrote the rx. Sagar Barth APRN.LIQUID CENTER ASSEMBLER [facility] 01-29-2024 Telephone encounter Note Per last Rx on 11/10/2023: Disp Refills Start End ZOLMitriptan (ZOMIG) 5 mg nasal spray 10 Each 5 11/10/2023 -- Sig: Use 1 [place] in the nose as needed at onset of migraine headache. If symptoms persist or return, may repeat dose in other nostril after 2 hours. Maximum of 2 sprays per 24 hours I called the pharmacy and hey need to know if Provider would like to dispense #6 or #12 cartridges. They do not come in 10. Please advise. Thank you [facility] 01-29-2024 Telephone encounter Note Name of Caller: nicky Relationship to patient: pharmacy Last visit in this department: 09/19/2023 Reason for Call: Other : need to verify quantity on zolmitriptan. Callback number: [phone] [facility] 01-23-2024 History of Present illness Narrative Associated Problem(s): SOB (shortness of breath) on exertion Severe symptom and check CXR. Use albuterol PRN and start prednisone. Associated Problem(s): Mild persistent asthma with (acute) exacerbation ([facility]) Continued symptoms and treat with prednisone [...] Visit Mild persistent asthma with (acute) exacerbation ([facility]) - Primary Continued symptoms and treat [...] CBC and differential documented in this encounter [facility] 01-22-2024 Note HNO ID: [id number] Author: GETACHEW CANCINO RN Service: ? Author Type: Registered Nurse Type: Progress Notes Filed: 01/22/2024 15:58 Note Text: Pt in for third day of infusion. Pt rated headache 9/10. Pt has severe nausea and moderate dizziness. Educated pt on medications to be administered. Pt agreed to proceed as ordered. Processor Solid Propellant yes Patient reports she stopped vomiting but [...] via wheelchair to her in the lobby. [facility] 01-22-2024 History of Present illness Narrative Pt in for third day of infusion. Pt rated headache 9/10. Pt has severe nausea and moderate dizziness. Educated pt on medications to be administered. Pt agreed to proceed as ordered. Processor Solid Propellant yes Patient reports she stopped vomiting but [...] in the lobby. documented in this encounter [facility] 01-22-2024 Note HNO ID: [id number] Author: RAIZA MORALES APRN.FADY Service: ? Author [...] Lymph 1.00 - 4.00 k/uL 0.84 Abs [place] <0.87 k/uL 0.06 Abs Eosin <0.46 k/uL [...] ZOLMitriptan (ZOMIG) 5 mg nasal sprayUse 1 [place] in the nose as needed at onset [...] and clear, coherent, and relevant. Short and buttermaker continuous churn memory, cognition and general fund of knowledge [...] which included p (more content not included)... [facility] 01-22-2024 History of Present illness Narrative [...] Lymph 1.00 - 4.00 k/uL 0.84 Abs [place] <0.87 k/uL 0.06 Abs Eosin <0.46 k/uL [...] ZOLMitriptan (ZOMIG) 5 mg nasal spray^Use 1 [place] in the nose as needed at onset [...] and clear, coherent, and relevant. Short and buttermaker continuous churn memory, cognition and general fund of knowledge [...] which included preparing to see the patient, [id number] patient care, completing clinical documentation, and obtaining and/or reviewing separately obtained history. Raiza Morales APRN.FADY Headache Section [facility] January 22, 2024 documented in this encounter [facility] 01-19-2024 Note HNO ID: [id number] Author: GETACHEW CANCINO RN Service: ? Author Type: Registered Nurse Type: Progress Notes Filed: 01/19/2024 11:55 Note Text: Pt in for second day of infusion. Pt rated headache 10/10. Pt has severe nausea and severe dizziness. Educated pt on medications to be administered. Pt agreed to proceed as ordered. Processor Solid Propellant: yes Patient took Valium 10 mg tabl [...] over the last 2 months, saw pcp, Maria Ines prescribed. Labs ordered and done. Patient didn't start Adipex yet. Patient reports severe nausea and vomiting, yesterday she vomited 3 times. This morning she vomited once when she smelled food. Some ankle edema note, hands slightly puffy. Discussed with Demond Aguilar CNP. Ольга to see patient. 1102 Anxiety resolved. Headache 5/10, mild nausea. Patient sleeping on and off. Seen by Deomnd Aguilar CNP, per Demond Aguilar CNP continue [...] Pt d/c via wheelchair to her in [facility]. Instructed patient and to take caution with ambulating. Patient is feeling sedated. [facility] 01-19-2024 History of Present illness Narrative Pt in for second day of infusion. Pt rated headache 10/10. Pt has severe nausea and severe dizziness. Educated pt on medications to be administered. Pt agreed to proceed as ordered. Processor Solid Propellant: yes Patient took Valium 10 mg tabl [...] Pt d/c via wheelchair to her in [facility]. Instructed patient and to take caution with ambulating. Patient is feeling sedated. documented in this encounter [facility] 01-17-2024 Note HNO ID: [id number] Author: CLAUDIA MAYNARD RN Service: ? Author [...] PRN Zofran given for nausea. Discharged to route driver via wheelchair. [facility] 01-17-2024 History of Present illness Narrative [...] PRN Zofran given for nausea. Discharged to route driver via wheelchair. documented in this encounter [facility] 01-17-2024 Note HNO ID: [id number] Author: ОЛЬГА AGUILAR APRN.LIQUID CENTER ASSEMBLER Service: ? Author Type: Nurse Practitioner Type: Progress Notes Filed: 01/17/2024 07:59 Note Text: Headache Center - Virtual Visit Infusion Triage This visit was conducted as a virtual visit, with patient's permission, via ZOOM. It required patient-provider interaction for the medical decision making as documented below. Patient stated name and Patient location [place], [place] I have communicated my name and active licensure. The patient's identity and physical location were verified at the time of this visit. Either the patient or their legal manufacturers representative has been informed of the risks [...] you tried for this headache cycle: Parafon Arone, New health events/diagnosis since last visit ([place]/stroke/DM/HTN/etc): denies Cardiovascular risk factors: obesity Past infusion [...] Lymph 1.00 - 4.00 k/uL 0.84 Abs [place] <0.87 k/uL 0.06 Abs Eosin <0.46 k/uL <0.03 Abs Baso <0.11 k/uL <0.03 NRBC /100 WBC 0.0 Analgesic Ketorolac (Toradol) Anti-Convulsant Lamotrigine (Lamictal) Topiramate (Topamax, Trokendi XL, Qudexy) Anti-Depressant and Antipsychotic Amitriptyline (Elavil) [place] (Eskalith, Lithobid) Nortriptyline (Pamelor, Aventyl) Anti-Migraine Dihydroergotamine [...] sprayUse 1 Sp (more content not included)... [facility] 01-16-2024 Telephone encounter Note PAPO: 12/05/2023 with Ольга Aguilar APRN.LIQUID CENTER ASSEMBLER [facility] 01-16-2024 Miscellaneous Notes PAPO: 12/05/2023 with Ольга Aguilar APRN.LIQUID CENTER ASSEMBLER documented in this encounter [facility] 01-09-2024 History of Present illness Narrative Associated Problem(s): Chronic migraine without aura without status migrainosus, not intractable ([facility]) PINEDA worse and follow with specialists. Associated Problem(s): Class 3 severe obesity due to excess calories without serious comorbidity with body mass index (BMI) of 50.0 to 59.9 in adult ([facility]) Patient overweight and difficult time losing [...] labs. Associated Problem(s): Mixed bipolar I disorder ([facility]) Denies worsening symptoms and follow with [...] 50 MG tablet documented in this encounter [facility] 01-05-2024 Note HNO ID: [id number] Author: LENNIE PALACIOS RN Service: ? Author [...] after Benadryl given. 1345 Patient discharged to route driver in wheelchair , patient sleepy but verbalizing and ambulating wheelchair used as a precaution Patient able to walk to wheelchair without difficulty. [facility] 01-05-2024 History of Present illness Narrative [...] after Benadryl given. 1345 Patient discharged to route driver in wheelchair , patient sleepy but verbalizing and ambulating wheelchair used as a precaution Patient able to walk to wheelchair without difficulty. documented in this encounter [facility] 12-05-2023 History of Present illness Narrative Images from the original note were not included. Headache Center - Follow up Virtual Visit Last OV: 08/23/23 Sona Barth APRN Accompanied by: Self This visit was conducted as a virtual visit, with patient's permission, via ZOOM. It required patient-provider interaction for the medical decision making as documented below. Patient stated name and Patient location [place], [place] I have communicated my name and active licensure. The patient's identity and physical location were verified at the time of this visit. Either the patient or their legal manufacturers representative has been informed of the risks [...] (ZOMIG) 5 mg nasal spray Use 1 [place] in the nose as needed at onset [...] discussed these with the patient: yes Ольга Aguilar, UMANG.LIQUID CENTER ASSEMBLER Studies to Review: No New Health Issues: [...] XL, Qudexy) Anti-Depressant and Antipsychotic Amitriptyline (Elavil) [place] (Eskalith, Lithobid) Nortriptyline (Pamelor, Aventyl) Blood Pressure [...] which included preparing to see the patient, [id number] patient care, completing clinical documentation, and counseling and educating the patient/family/caregiver. Ольга Aguilar APRN.FADY documented in this encounter [facility] 12-05-2023 Note HNO ID: [id number] Author: ОЛЬГА AGUILAR APRN.FADY Service: ? Author [...] below. Patient stated name and Patient location [place], [place] I have communicated my name and active licensure. The patient's identity and physical location were verified at the time of this visit. Either the patient or their legal manufacturers representative has been informed of the risks [...] (ZOMIG) 5 mg nasal spray Use 1 [place] in the nose as needed at onset [...] 03/22/2023 07/10/2023 1 (more content not included)... [facility] 11-15-2023 History of Present illness Narrative [...] MG per tablet documented in this encounter [facility] 11-10-2023 Telephone encounter Note The following approved medication requests have been transmitted electronically. Requested Prescriptions Signed Prescriptions Disp Refills ZOLMitriptan (ZOMIG) 5 mg nasal spray 10 Each 5 Sig: Use 1 [place] in the nose as needed at onset [...] spasm (migraine). Authorizing Provider: SAGAR BARTH APRN.CNP [facility] 11-10-2023 Miscellaneous Notes The following approved medication requests have been transmitted electronically. Requested Prescriptions Signed Prescriptions Disp Refills ZOLMitriptan (ZOMIG) 5 mg nasal spray 10 Each 5 Sig: Use 1 [place] in the nose as needed at onset [...] SAGAR BARTH APRN.CNP patient requesting refill via Kaiamhart. Last OV: 09/19/2023 Future OV: None scheduled Last prescribed: 4 months ago (07/10/2023) by Sagar Barth APRN.CNP Requested Prescriptions Pending Prescriptions Disp Refills ZOLMitriptan (ZOMIG) 5 mg nasal spray 10 Each 5 Sig: Use 1 [place] in the nose as needed at onset [...] muscle spasm (migraine). documented in this encounter [facility] 11-10-2023 Telephone encounter Note The following approved medication requests have been transmitted electronically. Requested Prescriptions Signed Prescriptions Disp Refills promethazine (PHENERGAN) 25 mg tablet 90 tablet 5 Sig: Take 1 tablet by mouth every 4 hours as needed. FOR NAUSEA Authorizing Provider: SAGAR BARTH APRN.CNP [facility] 11-10-2023 Miscellaneous Notes The following approved [...] Pharmacy Name: [facility] Shana Gibbs documented in this encounter [facility] 11-10-2023 Telephone encounter Note Physician: Tab Call from patient requesting refill. Please E-Scribe Last office visit 09/19/23 with Green in person Next office visit N/A Requested Prescriptions Pending Prescriptions Disp Refills promethazine (PHENERGAN) 25 mg tablet 90 tablet 1 Sig: Take 1 tablet by mouth every 4 hours as needed. FOR NAUSEA Pharmacy Name: [facility] Shana Gibbs [facility] 11-10-2023 Telephone encounter Note patient requesting refill via Kaiamhart. Last OV: 09/19/2023 Future OV: None scheduled Last prescribed: 4 months ago (07/10/2023) by Sagar Barth APRN.LIQUID CENTER ASSEMBLER Requested Prescriptions Pending Prescriptions Disp Refills ZOLMitriptan (ZOMIG) 5 mg nasal spray 10 Each 5 Sig: Use 1 [place] in the nose as needed at onset [...] day as needed for muscle spasm (migraine). [facility] 10-13-2023 History of Present illness Narrative Pt in for Vyepti infusion. Pt rated headache 8 /10. Pt has severe nausea and mild dizziness. Educated pt on medications to be administered. Pt agreed to proceed as ordered. 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 documented in this encounter [facility] 10-10-2023 History of Present illness Narrative Associated Problem(s): Mild persistent asthma with (acute) exacerbation ([facility]) Continued symptoms and treat with prednisone [...] Visit Mild persistent asthma with (acute) exacerbation ([facility]) Continued symptoms and treat with prednisone [...] MG per tablet documented in this encounter [facility] 09-19-2023 History of Present illness Narrative Images [...] XL, Qudexy) Anti-Depressant and Antipsychotic Amitriptyline (Elavil) [place] (Eskalith, Lithobid) Nortriptyline (Pamelor, Aventyl) Anti-Migraine Dihydroergotamine [...] ZOLMitriptan (ZOMIG) 5 mg nasal spray^Use 1 [place] in the nose as needed at onset [...] these with the patient: yes Sagar Barth APRN.LIQUID CENTER ASSEMBLER HEADACHE SCORES: 03/22/2023 07/10/2023 09/19/2023 Headache Questions [...] spontaneous and fluent without dysarthria. Short and buttermaker continuous churn memory, cognition and general fund of knowledge [...] XL, Qudexy) Anti-Depressant and Antipsychotic Amitriptyline (Elavil) [place] (Eskalith, Lithobid) Nortriptyline (Pamelor, Aventyl) Blood Pressure [...] which included preparing to see the patient, [id number] patient care, completing clinical documentation, obtaining and/or reviewing separately obtained history, counseling and educating the patient/family/caregiver, ordering medications, tests, or procedures, and care coordination (not separately reported). Sagar Barth APRN.FADY Headache Section [facility] September 19, 2023 documented in this encounter [facility] 08-18-2023 Instructions Curtis Lepe PA-C - 08/18/2023 2:39 PM EDT You received a greater occipital nerve block (GONB) today You may feel sore tomorrow at the site of the injection. You may use heat or ice for discomfort and gentle stretching. This should resolve in 24-36 hours. Greater Occipital Nerve Block (GONB) Article in [employer] Journal By: Molina Barraza MD Many patients with chronic headache report that their pain typically arises from the neck or, more specifically, the base of the skull. Often that pain arises on one side or the other and extends forward to involve the top of the head, the scientology, the forehead, the eye or some combination [...] it at least one more try. https://americanheadachesociety. org/wp-content/uploads/05/O cfzxjjqc-Zalyf-Oercln_Cks-2010.p df documented in this encounter [facility] 08-18-2023 History of Present illness Narrative [...] This should resolve in 24-36 hours. Curtis Lepe, PA-C Impression/plan: -Can send Phenergan 25 mg for nausea. Our department does not prescribe Zofran pump. Can consider scopolamine patch. 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 PAPO: 07/10/2023 Future OV: 09/19/2023 Encounter from [facility] today 08/16/2023 [facility] 08-16-2023 Miscellaneous Notes Forwarded to provider for review. PAPO: 07/10/2023 Future OV: 09/19/2023 Encounter from [facility] today 08/16/2023 documented in this encounter [facility] 07-10-2023 History of Present illness Narrative [...] visit. Either the patient or their legal manufacturers representative has been informed of the risks [...] XL, Qudexy) Anti-Depressant and Antipsychotic Amitriptyline (Elavil) [place] (Eskalith, Lithobid) Nortriptyline (Pamelor, Aventyl) Anti-Migraine Dihydroergotamine [...] ZOLMitriptan (ZOMIG) 5 mg nasal spray^Use 1 [place] in the nose as needed at onset [...] these with the patient: yes Sagar Barth APRN.LIQUID CENTER ASSEMBLER HEADACHE SCORES: 12/12/2022 03/22/2023 07/10/2023 Headache Questions [...] Lymph 1.00 - 4.00 k/uL 0.84 Abs [place] <0.87 k/uL 0.06 Abs Eosin <0.46 k/uL [...] spontaneous and fluent without dysarthria. Short and buttermaker continuous churn memory, cognition and general fund of knowledge [...] XL, Qudexy) Anti-Depressant and Antipsychotic Amitriptyline (Elavil) [place] (Eskalith, Lithobid) Nortriptyline (Pamelor, Aventyl) Blood Pressure [...] (ZOMIG) 5 mg nasal spray Use 1 [place] in the nose as needed at onset [...] Service: Virtual Visit 40 minutes Sagar Barth APRN.LIQUID CENTER ASSEMBLER Headache Section [facility] July 10, 2023 documented in this encounter [facility] 06-26-2023 Telephone encounter Note Called Pt to clarify ER visit. States she was seen this morning at [facility] and given a Compazine and steroid shot States she cannot remember the name of steroid that was given. Information passed on to care team. Marc TOMAS RN Clinical Residential Director [facility] 06-26-2023 Miscellaneous Notes Called Pt to clarify ER visit. States she was seen this morning at [facility] and given a Compazine and steroid shot States she cannot remember the name of steroid that was given. Information passed on to care team. Marc TOMAS RN Clinical Residential Director [facility] documented in this encounter [facility] 06-26-2023 Telephone encounter Note Forwarded to provider for review. PAPO: 04/14/2023 with Suzan Ivey APRN.LIQUID CENTER ASSEMBLER Future OV: None scheduled [facility] 06-26-2023 Miscellaneous Notes Forwarded to provider for review. PAPO: 04/14/2023 with Suzan Ivey APRN.FADY Future OV: None scheduled MyChart message sent to patient to gain more information in regards to patient's migraine. documented in this encounter [facility] 06-26-2023 Telephone encounter Note MyChart message sent to patient to gain more information in regards to patient's migraine. [facility] 04-14-2023 Instructions Suzan Ivey APRN.CNP - 04/14/2023 10:49 AM EST Follow [...] video on how to give the injection: https://www.aimExplorra.UK Work Study/ Aimovig must be approved by your insurance [...] this encounter [facility] 04-14-2023 History of Present illness Narrative [...] Level: 4/10 Hysterectomy for contraceptive Has a route driver Current Preventative: recently prescribed aimovig [...] ZOLMitriptan (ZOMIG) 5 mg nasal spray^Use 1 [place] in the nose as needed at onset [...] and clear, coherent, and relevant. Short and buttermaker continuous churn memory, cognition and general fund of knowledge [...] which included preparing to see the patient, [id number] patient care, completing clinical documentation, obtaining and/or reviewing separately obtained history, performing a medically appropriate examination, counseling and educating the patient/family/caregiver, and ordering medications, tests, or procedures. Suzan Ivey APRN.FADY Headache Section [facility] documented in this encounter [facility] 04-14-2023 History of Present illness Narrative Pt in for 3rd day of infusion. Pt rated headache 6/10. Pt has severe nausea and moderate dizziness. Educated pt on medications to be administered. Pt agreed to proceed as ordered. Patient has route driver today. @0915: Patient tearful and c/o PIV site burning and very painful. No infiltration or redness of site noted, Ice-pack placed over PIV site. After a few minutes pt reported the ice-pack did not help and wanted PIV to be removed. PIV site removed. Patient remained very anxious and tearful, and requesting if anything else can be given for anxiety. [facility] WASHER AND CRUSHER TENDER notified. New PIV site started, 2nd dose of Benadryl given for anxiety. 2nd line: Compazine given for severe nausea. Per [facility] WASHER AND CRUSHER TENDER to hold Periactin today as the two doses of Benadryl and Compazine can cause drowsiness. Pts infusion complete, tolerated infusion. Headache 4/10. Pt stated no nausea and moderate dizziness. PIV site removed. Pt discharged from txt room at 1124 via wheelchair to ride in [employer]. documented in this encounter [facility] 04-13-2023 History of Present illness Narrative [...] She is working with a psychiatrist in [place] . Voiced stress is her biggest trigger for headaches. 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 I mentioned to patient our reboot program . Patient very interested to learn about it. Message send to our roof painter and Rhina Lim to set up patient for evaluation. 1020 Patient sleeping on and off. Nausea subsiding. Patient declined Zofran. Stated Zofran ineffective. 1050 Infusion complete. Patient slept on and off. Nausea resolved. PINEDA 6/10. Patient verbal , appears sedated . D/c via wheel chair to her in [employer]. documented in this encounter [facility] 04-13-2023 Miscellaneous Notes Patient is currently receiving infusions for headache. She is interested in learning about reboot program. Please schedule for evaluation. Getachew Cancino RN documented in this encounter [facility] 04-12-2023 History of Present illness Narrative [...] severe Baseline Pain Level: 4/10 Has a route driver Current Preventative: Botox PREEMPT Protocol [...] ZOLMitriptan (ZOMIG) 5 mg nasal spray^Use 1 [place] in the nose as needed at onset [...] which included preparing to see the patient, bwbl-ss-nflg patient care, completing clinical documentation, obtaining and/or reviewing separately obtained history, performing a medically appropriate examination, counseling and educating the patient/family/caregiver, and ordering medications, tests, or procedures. Suzan Ivey APRN.FADY Headache Section [facility] documented in this encounter [facility] 04-12-2023 History of Present illness Narrative 1105 Patient in for first day of IV infusions. Patient rated headache 8/10. Patient stated severe nausea and mild dizziness. Patient educated on medications to be administered. Patient verbalized understanding and agreed to proceed with infusions. Patient requested the PRN IV Benadryl vs oral periactin for sedation. Rhina Ivey WASHER AND CRUSHER TENDER updated and agreeable. PIV started on 3rd [...] dizziness. Pt discharged from treatment room with route driver via wheelchair due to effects from oral medications. documented in this encounter [facility] 04-12-2023 Instructions Suzan Ivey APRN.FADY - [...] much light. These can be obtained at [employer] Work Study or [employer]: see list below. 2. Limit use of acute treatments (vxpq-apa-smiwsgm medications, triptans, etc.) to no more than [...] and quiet environment. Relax and reduce stress. Sgenqhx2Gertv is a free juan a that can instruct you on some simple relaxtion and breathing techniques. Http://[employer] Work Study is a free website that provides teaching [...] ensuing treatment plans will be released via Voolgo and discussed during your follow-up appointment. Follow-up appointments are primarily provided by the Nurse Practitioners and Physician s Assistants in order to provide timely, accessible care. MyChart: Please ask the schedulers to give you an activation code. The main way of communication is by LocalCustomerhart rather than phone lines, so if you have not signed up, please do so. Launchupst is also the way that you can review your labs and testing. We are not able to contact everyone to tell them results are normal. If you do not hear back from us regarding testing you have had, it should be considered normal or within normal range. If you have any questions about the results, you are free to message us. Voolgo is meant for simple questions regarding medications, possible side effects, or other simple straight forward questions in limited sentences, rather than multiple paragraphs of discussion. Voolgo is not meant for, or efficient for these complex questions, extensive questions, extensive medication adjustments, complex new symptoms or concerns. These issues beyond simple questions require a follow up visit with myself, one of our physician assistants, nurse practitioners, or a Virtual Visit via computer or smart phone, as detailed further down. Please contact [employer] if you are having issues with Voolgo or logging in to your virtual visit appointment. You can reach them at [phone] Refills: Please pay attention to when your [...] pepperoni, Pickled reynoso Pods of broad carmona (Senegalese beans, Sao Tomean pea pods, Korean (jc) beans, frazier and navy beans Ripe [...] Aimovig 70MG/ML auto-injectors Cover My Meds Chong: [id number] Determination: Approved Prior Authorization/Case #: n/a Prior [...] refills. Prescriptions will now be processed through [facility] for determination of next steps. For questions relating to this submission, please contact [facility] at [phone] [facility] received prescription(s) for Aimovig 70MG/ML auto-injectors . Benefits investigation was conducted, indicating that a prior authorization is required. PA was initiated and pending review through [employer]. All pertinent clinical information was submitted to insurance. CM Chong: [id number] Ordering Provider: Sagar Barth APRN.Angely Schaefer RN [facility] P: , F: documented in this encounter [facility] 12-13-2022 Miscellaneous Notes Images from the original note were not included. Called patient to schedule for 3 days of Non DHE IV infusions. She started she was currently driving and would call back to schedule Sagar Barth APRN.LIQUID CENTER ASSEMBLER P Headache Infusion Scheduling Pool; P C21 Botox Pool Pls schedule for infusions, and also her next botox treatment - thank you. KG documented in this encounter [facility] 12-13-2022 Miscellaneous Notes PA submitted through CoverMyMeds for Orphenadrine Citrate ER 100mg. Chong Code: [id number] documented in this encounter [facility] 12-09-2022 Miscellaneous Notes Patient would also [...] documented in this encounter [facility] 11-11-2022 History of Present illness Narrative April Fernández Bharat in for day 1 of PINEDA [...] d/c since symptoms have resolved. Suzan Ivey APRN.LIQUID CENTER ASSEMBLER 0824: Patient in for first day of IV infusions. Patient rated headache 8/10. Patient stated severe nausea and severe dizziness. Patient educated on medications to be administered. Patient verbalized understanding and agreed to proceed with infusions. She does have a route driver. She would like PRN benadryl [...] with it. Message sent to Suzan Ivey WASHER AND CRUSHER TENDER to update. Benadryl hypersensitivity released and administered. Pt also very nauseated. PRN zofran administered. 1050: Pt fell back asleep. Woke pt up and she she stated relief from all itching. Denies any other symptoms/side effects at this time. Pts infusions complete. Pt rated headache 7/10. Pt stated mild nausea and denied dizziness. 1055: Suzan Ivey WASHER AND CRUSHER TENDER in txt room to see patient. 1105: Pt discharged from treatment room via wheelchair due to drowsiness to her significant other. 1110: When cleaning chair after pt left, white pill found in chair. Tablet identified as baclofen. During initial assessment, after reviewing home medication list, pt denied any other medications missing from the list. Baclofen not listed on home medication list. Suzan Ivey WASHER AND CRUSHER TENDER notified. documented in this encounter [facility] 11-10-2022 History of Present illness Narrative Images from the original note were not included. Headache Center - Virtual Visit Infusion Triage This visit was conducted as a virtual visit, with patient's permission, via ZOOM. It required patient-provider interaction for the medical decision making as documented below. Patient stated name and Patient location [facility] I have communicated my name and active licensure. The patient's identity and physical location were verified at the time of this visit. Either the patient or their legal manufacturers representative has been informed of the risks [...] Lymph 1.00 - 4.00 k/uL 0.84 (L) [place]% % 0.7 Abs [place] <0.87 k/uL 0.06 Eosin% % 0.1 Abs [...] 2.7 TSH 0.270 - 4.200 mIU/L 0.537 [place] 0.6 - 1.2 mmol/L 0.1 (L) Analgesic Ketorolac (Toradol) Anti-Convulsant Lamotrigine (Lamictal) Topiramate (Topamax, Trokendi XL, Qudexy) Anti-Depressant and Antipsychotic Amitriptyline (Elavil) [place] (Eskalith, Lithobid) Nortriptyline (Pamelor, Aventyl) Anti-Migraine Dihydroergotamine [...] ZOLMitriptan (ZOMIG) 5 mg nasal spray^Use 1 [place] in the nose as needed at onset [...] these with the patient: yes Ольга Aguilar APRN.LIQUID CENTER ASSEMBLER HEADACHE SCORES: Headache Questions 06/24/2022 08/31/2022 09/12/2022 [...] in rate, volume and articulation. Short and custodial memory, cognition and general [...] Name and Date of . ( April Chatmananagan, 1995). Yes Reason for Call : Other Patient wants to get infusions scheduled. Number to return call [phone] Okay to leave a message ? Yes Last office visit 10/12/22 with [employer] Next office visit Not scheduled. Thank you calling [facility]. You will receive a return call within 48 hours ( or 2 business days if close to the weekend). If you feel that this is an urgent issue and needs immediate attention, it is recommended that you contact your primary care provider office or proceed to your nearest Urgent Care Center of Emergency Room ED for evaluation/treatment. documented in this encounter [facility] 10-06-2022 Miscellaneous Notes Ambulatory Pharmacy Prior Authorization Note Provider Intervention Required?: No- Pharmacy completed on your behalf. Rx Plan: Medicaid [facility] ([facility]) Drug: Zomig 5MG nasal spray Cover My Meds Chong: [id number] Determination: Approved Prior Authorization/Case #: n/a Prior [...] refills. Prescriptions will now be processed through [facility] for determination of next steps. For questions relating to this submission, please contact [facility] at [phone] [facility] received prescription(s) for Zomig 5MG nasal spray . Benefits investigation was conducted, indicating that a prior authorization is required. PA was initiated and pending review through [employer]. All pertinent clinical information was submitted to insurance. CMM Chong: [id number] Ordering Provider: Sagar Barth APRN.CNP Murtaugh, Alisha, RN [facility] P: , F: documented in this encounter [facility] 09-28-2022 Miscellaneous Notes Patient last seen on 09/12/22. documented in this encounter [facility] 08-31-2022 History of Present illness Narrative [...] visit. Either the patient or their legal manufacturers representative has been informed of the risks [...] She has been seeing one of the WASHER AND CRUSHER TENDER's. It sounds like the plan is Emgality and Zomig nasal spray but it has been 2 months and she still hasn't heard about whether it has been approved. Has infusions which helped some. [place] keppra worked the best. Has an appt with WASHER AND CRUSHER TENDER in a week. I will give melyssappra [...] XL, Qudexy) Anti-Depressant and Antipsychotic Amitriptyline (Elavil) [place] (Eskalith, Lithobid) Nortriptyline (Pamelor, Aventyl) Anti-Migraine Naratriptan [...] (ZOMIG) 5 mg nasal spray Use 1 [place] in the nose as needed. SPRAY IN [...] these with the patient: yes Sagar Barth APRN.LIQUID CENTER ASSEMBLER HEADACHE SCORES: Headache Questions 06/24/2022 08/31/2022 ER [...] spontaneous and fluent without dysarthria. 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 Vida Vazquez RN August 10, 2022 10:01 AM documented in this encounter [facility] 08-08-2022 History of Present illness Narrative VV I have communicated my name and active licensure. The patient's identity and physical location were verified at the time of this visit. Either the patient or their legal manufacturers representative has been informed of the risks and benefits of -- and alternatives to -- treatment through a remote evaluation and consents to proceed with the evaluation remotely. Pt that I saw once 9 or so months ago. At the time, did not need preventative med. Since, the PINEDA's have worsened. She has been seeing one of the WASHER AND CRUSHER TENDER's. It sounds like the plan is Emgality and Zomig nasal spray but it has been 2 months and she still hasn't heard about whether it has been approved. Has infusions which helped some. [place] keppra worked the best. Has an appt with WASHER AND CRUSHER TENDER in a week. I will give jeremy today until she can find out where emgality and zomig stand. Answered all questions. Jesse Borrego MD Time spent: 18 mins (10 mins direct pt contact) documented in this encounter [facility] 07-28-2022 History of Present illness Narrative Patient in for day 2 of infusion therapy. Patient rated headache pain 10 out of 10. Patient has severe nausea and moderate dizziness. Education was provided for the patient on medications and treatment plan for the day. The patient verbalized understanding and agreed to the infusion. 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 IV removed and patient discharged from infusion room documented in this encounter [facility] 06-27-2022 Miscellaneous Notes Images from the original note were not included. Spoke to patient about scheduling infusions. Patient would like to callback once she can figure out transportation. Sagar Barth APRN.FADY P Headache Infusion Scheduling Pool Please sched for infusions - therapy plan placed. Sagar Barth APRN.FADY documented in this encounter [facility] 06-14-2022 [...] admitted to the ER couple times in [facility] and all her medication is not working. Patient scheduled to see Dr. Borrego on 07/25 and she's on a wait list for sooner appts. Number to return call [phone] Corina Thorpe I called and spoke to [...] for 9 pills. Patient advised to pick pack worker Amerge and instruction on when to use. [...] this encounter [facility] 12-03-2021 History of Present illness Narrative Dictation completed. Of note, she feels her neck hurts all of the time but I do not see that on the exam today. Jesse Borrego MD documented in this encounter [facility] 11-10-2021 History of Present illness Narrative [facility] VIRTUAL VISIT Patient Name: Sandie [...] complains memory issues/vision issues. OSH admission documentation ([facility], [place]) ADMISSION DATE: 10/19/21 DISCHARGE DATE: 10/20/21 Patient was hooked up to buttermaker continuous churn video EEG monitoring or LTME. Overnight, patient [...] and ordering medications, tests, or procedures. Nelly Sladaña PA-C November 10, 2021 documented in this encounter [facility] 11-09-2021 Miscellaneous Notes Lvv 10/29/2021 Dr Dolan PLAN: -Patient agreed to have 3 days home Video EEG (stratus) to confirm the diagnosis of PNES (patient needs to be at home with her 4 kids all have special needs). -Discussed treatment of PNES with specialized CBT at [facility] psychology program. -No driving Patient agreed Consult [...] this encounter [facility] 10-29-2021 History of Present illness Narrative [facility] Patient Name: Sandie Nicholson Date [...] complains memory issues/vision issues. OSH admission documentation ([facility], [place]) ADMISSION DATE: 10/19/21 DISCHARGE DATE: 10/20/21 Patient was hooked up to buttermaker continuous churn video EEG monitoring or LTME. Overnight, patient [...] treatment of PNES with specialized CBT at [facility] psychology program. -No driving Patient agreed Consult headache center for headache. Continue to follow up local psychiatrist/conseling for mood disorder, anxiety and PTSD. I spent 58 minutes including face to face on the date of the service, preparing to see the patient, reviewing medical records, completing clinical documentation, counseling, and ordering medications, tests, or procedures. Tyrone Dolan MD PhD Staff, Epilepsy [facility] [place], [place] Primary Care Physician: Abdifatah Lynn (Historical) Jose Antonio (Inactive) No address on file Referring Physician: SELF Ms. Sandie Nicholson [address] [place] [address] documented in this encounter [facility] 10-26-2021 History of Present illness Narrative [facility] Review of Records Patient: Sandie Nicholson Address: [address] [place] [address] Impression: Review of records for Sandie Nicholson, [...] cholecystectomy, caesarean , tubal ligation PRIOR EVALUATIONS: [place] [address] Video EEG ([facility], 10/19/2021-10/20/2021): Normal continuous video-EEG. The events that were captured did not correlate with epileptic seizures. No epileptiform discharges were identified. MRI brain wo/w contrast ([facility], 10/19/2021): Unremarkable MRI of the brain JUAN A Recommendations: - Admit to EMU for VEEG monitoring, diagnostic evaluation Location: [facility] - Visit with epileptologist prior to admission - Additional testing to be considered by epilepsy clinicians Signed: Geri Madera APRN.LIQUID CENTER ASSEMBLER October 26, [address] Storey for review and recommendations. --------- Recommendations (as discussed with Dr. Storey): - Please proceed with the above plan. Please route this encounter to the EMU Scheduling Pool ( P EMU ) or PMU Scheduling Pool ( P PMU ) through LOS & Follow up PHASE 1.0 AND 1.5 ORDER SYNOPSIS Patient: Sandie Nicholson ([id number]) Best contact number: [phone] Insurance: No coverage found. Scheduling Team: Please call for adult patients: Mendoza Torres ([phone]) Chucky Cantor ([phone]) Fabiola Sharpe([phone]) Nikkie Mahajan([phone]) Please call for pediatric patients: Chucky Cantor ([phone]) Fabiola Sharpe ([phone]) Mendoza Torres ([phone]) Nikkie Mahajan([phone]) Appointments and Tests PRE-PROCEDURE & PRE-OPERATIVE COVID [...] in this encounter [facility] 10-20-2021 Hospital Discharge instructions UMANG Garcia [...] sent through Care Everywhere.Non-Epileptic Seizure: General Info (Senegalese)documented in this encounter [facility] Phone: 10-20-2021 History of Present illness Narrative [...] hysterectomy who presented as a transfer from [facility] for seizure like episodes. Per records, patient's boyfriend called EMS this morning as patient had multiple episodes of seizure like episodes. On EMS arrival, patient was laying in bed with violent 5 second full body tremors/convulsion like activity . Significant other had reported patient had 3 other episodes prior to their arrival. Per records, patient had another similar episode en route to [facility] ED. On arrival to [facility] ED, GCS 12. Per documentation, patient had at least 13 seizure like episodes, lasting 10-60 seconds, described as grand mal. She was given 10mg Valium IV, 1g Keppra IV, 720mg Phenobarbital IV. CT Head without contrast unremarkable. Labs unremarkable including normal TSH, lactic, negative UA. Transferred to [facility] Neuro ICU for further management. Per mother, [...] brain mass recently (last 6 months) at [facility] and is supposed to have a brain biopsy in November 2021. Patient recently saw Dr. Vicky De Dios ([facility]) on 08/06/21 for migraines and [...] On arrival to the Neuro ICU, Adrienne (MANAGER GROUP) witnessed two brief (~10 seconds) episodes of [...] with patient and mom. Records requested from [facility] where patient states she was seen [...] hysterectomy who presented as a transfer from [facility] ED for seizure like episodes. NEUROLOGIC: - [...] UMANG Garcia CNP Neuro Critical Care Pager [phone] 10/20/2021 6:49 AM ALTM is running. Pt [...] at 100%. documented in this encounter [facility] [employer] Phone: 10-01-2021 Note DISCHARGE SUMMARY DISCHARGE DATE: [...] free and no longer on narcotics. [facility] 10-01-2021 Note OPERATIVE NOTE OPERATION DATE: 10/01/2021 PROCEDURE: Total abdominal hysterectomy with partial bilateral salpingectomy with cystoscopy. PREOPERATIVE DIAGNOSIS: Menorrhagia, dysmenorrhea, dyspareunia, pelvic pain. POSTOPERATIVE DIAGNOSIS: Menorrhagia, dysmenorrhea, dyspareunia, pelvic pain. ANESTHESIA: General. SURGEON: Zay Blas D.O. WEIGHT YARDAGE CHECKER: VERNA Yap URINE OUTPUT: Yellow and clear. [...] Recovery Room in stable condition. ?? [facility] 08-14-2021 Note PROCEDURE: US PELVIS TRANSVAG, 08/14/2021 [...] by: NICOLE MEDELLIN Date: 2021-08-14 10:19 [facility] 12-24-2020 Hospital Discharge instructions Keven Ching DO - 12/24/2020 Continue all home medications as prescribed. Follow up with your family doctor and neurologist. Return to the emergency department for new, worsening or worrisome symptoms. documented in this encounter [employer] Phone: Evaluation note Diagnosis Migraine without status migrainosus, not intractable, unspecified migraine type- Primary documented in this encounter [employer] Phone: evaluation note* Diagnosis Seizure-like activity (HCC)- Primary Other convulsions Seizure disorder (HCC) Unspecified epilepsy without mention of intractable epilepsy Psychogenic nonepileptic seizure documented in this encounter [facility] [employer] Phone: evaluation note* Diagnosis Seizure-like activity (HCC)- Primary Other convulsions [facility] [place] [facility] Diagnosis Psychogenic nonepileptic seizure- Primary Spells of trembling Abnormal involuntary movements Chronic intractable headache, unspecified headache type [facility] [place] [facility]* Diagnosis Seizure-like activity (HCC)- Primary Other convulsions Psychogenic nonepileptic seizure [facility] [place] [facility] Diagnosis Seizure-like activity (HCC)- Primary Other convulsions [facility] Chronic migraine w/o aura, not intractable, w/o stat migr- Primary [facility] [facility] Diagnosis Intractable chronic migraine without aura and with status migrainosus- Primary Chronic migraine without aura, with intractable migraine, so stated, with status migrainosus [facility] Diagnosis Intractable chronic migraine without aura and with status migrainosus- Primary Chronic migraine without aura, with intractable migraine, so stated, with status migrainosus [facility] Diagnosis Chronic migraine w/o aura, not intractable, w/o stat migr- Primary [facility] Diagnosis Intractable chronic migraine without aura and with status migrainosus- Primary Chronic migraine without aura, with intractable migraine, so stated, with status migrainosus [facility] Diagnosis Intractable chronic migraine without aura and with status migrainosus- Primary Chronic migraine without aura, with intractable migraine, so stated, with status migrainosus [facility] Diagnosis Chronic migraine w/o aura, [...] Psychogenic nonepileptic seizure [facility]* Diagnosis Intractable chronic migraine without aura and without status migrainosus- Primary Chronic migraine without aura, with intractable migraine, so stated, without mention of status migrainosus [facility] Diagnosis Intractable chronic migraine without aura and without status migrainosus- Primary Chronic migraine without aura, with intractable migraine, so stated, without mention of status migrainosus [facility] Diagnosis Intractable chronic migraine without aura and without status migrainosus Chronic migraine without aura, with intractable migraine, so stated, without mention of status migrainosus [facility]* Diagnosis Intractable chronic migraine without aura and without status migrainosus- Primary Chronic migraine without aura, with intractable migraine, so stated, without mention of status migrainosus [facility] Diagnosis Intractable chronic migraine without aura and without status migrainosus- Primary Chronic migraine without aura, with intractable migraine, so stated, without mention of status migrainosus [facility]* Diagnosis Acute right flank pain- Primary [...] (CMS/HCC) Pain, dental [facility] Diagnosis Chronic migraine without aura, with intractable migraine, so stated, with status migrainosus- Primary Intractable chronic migraine without aura and with status migrainosus Chronic migraine without aura, with intractable migraine, so stated, with status migrainosus [facility]* Diagnosis Chronic migraine without aura, with intractable migraine, so stated, with status migrainosus- Primary Intractable chronic migraine without aura and with status migrainosus Chronic migraine without aura, with intractable migraine, so stated, with status migrainosus [facility] Diagnosis Acute right flank pain- Primary [...] dental Pain, dental [facility] Diagnosis Chronic migraine without aura, with intractable migraine, so stated, with status migrainosus- Primary [facility]* Diagnosis Chronic migraine without aura, with intractable migraine, so stated, with status migrainosus- Primary Intractable chronic migraine without aura and with status migrainosus Chronic migraine without aura, with intractable migraine, so stated, with status migrainosus [facility]* Diagnosis Acute right flank pain- Primary Mild persistent asthma without complication (CMS/HCC) Morbid obesity (CMS/HCC) Morbid obesity Body mass index [BMI] 45.0-49.9, adult (Z68.42) Acute bronchitis due to other specified organisms- Primary Mild persistent asthma with (acute) exacerbation (CMS/HCC) Acute bronchitis due to other specified organisms- Primary Mixed bipolar I disorder ([facility]) Bipolar I disorder, most recent episode (or current) mixed, unspecified Mild persistent asthma without complication ([facility])- Primary Class 3 severe obesity due to excess calories without serious comorbidity with body mass index (BMI) of 50.0 to 59.9 in adult ([facility]) Fatigue, unspecified type Mixed bipolar I disorder ([facility]) Bipolar I disorder, most recent episode (or current) mixed, unspecified Chronic migraine without aura without status migrainosus, not intractable ([facility]) Pain, dental Mild persistent asthma with (acute) exacerbation ([facility])- Primary Generalized edema Edema SOB (shortness of breath) on exertion Shortness of breath [facility] Diagnosis Acute right flank pain- Primary Mild persistent asthma without complication ([facility]) Morbid obesity ([facility]) Morbid obesity Body mass index [BMI] 45.0-49.9, adult (Z68.42) Acute bronchitis due to other specified organisms- Primary Mild persistent asthma with (acute) exacerbation ([facility]) Acute bronchitis due to other specified organisms- Primary Mixed bipolar I disorder ([facility]) Bipolar I disorder, most recent episode (or current) mixed, unspecified Mild persistent asthma without complication ([facility])- Primary Class 3 severe obesity due to excess calories without serious comorbidity with body mass index (BMI) of 50.0 to 59.9 in adult ([facility]) Fatigue, unspecified type Mixed bipolar I disorder ([facility]) Bipolar I disorder, most recent episode (or current) mixed, unspecified Chronic migraine without aura without status migrainosus, not intractable ([facility]) Pain, dental Mild persistent asthma with (acute) exacerbation ([facility])- Primary Generalized edema Edema SOB (shortness of breath) on exertion Shortness of breath COVID-19 [facility]* Diagnosis Severe persistent asthma without complication ([facility]) [facility]* Diagnosis Acute bronchitis due to other specified organisms- Primary Mild persistent asthma with (acute) exacerbation ([facility]) [facility]* Diagnosis Acute bronchitis due to other specified organisms- Primary Mixed bipolar I disorder ([facility]) Bipolar I disorder, most recent episode (or current) mixed, unspecified [facility]* Diagnosis Acute right flank pain- Primary Mild persistent asthma without complication ([facility]/HCC) Morbid obesity ([facility]) Morbid obesity Body mass index [BMI] 45.0-49.9, adult (Z68.42) Acute bronchitis due to other specified organisms- Primary Mild persistent asthma with (acute) exacerbation (CMS/[facility]) Acute bronchitis due to other specified organisms- Primary Mixed bipolar I disorder ([facility]) Bipolar I disorder, most recent episode (or current) mixed, unspecified Mild persistent asthma without complication ([facility]/HCC)- Primary Class 3 severe obesity due to excess calories without serious comorbidity with body mass index (BMI) of 50.0 to 59.9 in adult ([facility]) Fatigue, unspecified type Mixed bipolar I disorder ([facility]) Bipolar I disorder, most recent episode (or current) mixed, unspecified Chronic migraine without aura without status migrainosus, not intractable ([facility]) Pain, dental Mild persistent asthma with (acute) exacerbation ([facility])- Primary Generalized edema Edema SOB (shortness of breath) on exertion Shortness of breath Generalized abdominal pain- Primary Abdominal pain, generalized Intractable nausea and vomiting Mild persistent asthma with (acute) exacerbation ([facility]) [facility] encounter [facility]* Diagnosis Acute right flank pain- Primary Mild persistent asthma without complication (CMS/HCC) Morbid obesity ([facility]) Morbid obesity Body mass index [BMI] 45.0-49.9, adult (Z68.42) Acute bronchitis due to other specified organisms- Primary Mild persistent asthma with (acute) exacerbation ([facility]) Acute bronchitis due to other specified organisms- Primary Mixed bipolar I disorder ([facility]) Bipolar I disorder, most recent episode (or current) mixed, unspecified Mild persistent asthma without complication ([facility])- Primary Class 3 severe obesity due to excess calories without serious comorbidity with body mass index (BMI) of 50.0 to 59.9 in adult ([facility]) Fatigue, unspecified type Mixed bipolar I disorder ([facility]) Bipolar I disorder, most recent episode (or current) mixed, unspecified Chronic migraine without aura without status migrainosus, not intractable ([facility]) Pain, dental Mild persistent asthma with (acute) exacerbation ([facility])- Primary Generalized edema Edema SOB (shortness of breath) on exertion Shortness of breath Generalized abdominal pain- Primary Abdominal pain, generalized Intractable nausea and vomiting Mild persistent asthma with (acute) exacerbation (CMS/HCC) Pelvic pain in female Unspecified symptom associated with female genital organs Complex ovarian cyst documented in this encounter [facility]* Diagnosis Acute right flank [...] mixed, unspecified Mild persistent asthma without complication ([facility]/HCC)- Primary Class 3 severe obesity due to excess calories without serious comorbidity with body mass index (BMI) of 50.0 to 59.9 in adult ([facility]) Fatigue, unspecified type Mixed bipolar I disorder ([facility]) Bipolar I disorder, most recent episode (or current) mixed, unspecified Chronic migraine without aura without status migrainosus, not intractable (CMS/[facility]) Pain, dental Mild persistent asthma with (acute) exacerbation ([facility]/HCC)- Primary Generalized edema Edema SOB (shortness of breath) on exertion Shortness of breath Generalized abdominal pain- Primary Abdominal pain, generalized Intractable nausea and vomiting Mild persistent asthma with (acute) exacerbation ([facility]/HCC) Cyst of right ovary Other and unspecified ovarian cyst Pelvic pain in female Unspecified symptom associated with female genital organs Pelvic peritoneal adhesions, female Pelvic peritoneal adhesions, female (postoperative) (postinfection) documented in this encounter [facility]* Diagnosis Bilateral ovarian cysts- Primary Other and unspecified ovarian cyst Preop testing Unspecified pre-operative examination [facility] Diagnosis Bilateral ovarian cysts- Primary Other and unspecified ovarian cyst Moderate asthma with acute exacerbation, unspecified whether persistent Encounter for preoperative pulmonary examination [facility]* Diagnosis Acute cough [R05.1]- Primary documented [facility]* Diagnosis Intractable chronic migraine without aura and without status migrainosus- Primary Chronic migraine without aura, with intractable migraine, so stated, without mention of status migrainosus [facility] Diagnosis Asthma, unspecified asthma severity, unspecified whether complicated, unspecified whether persistent- Primary Bilateral ovarian cysts Other and unspecified ovarian cyst Moderate asthma with acute exacerbation, unspecified whether persistent Encounter for preoperative pulmonary examination Pulmonary nodule Other diseases of lung, not elsewhere classified Gastroesophageal reflux disease, unspecified whether esophagitis present documented in this encounter [facility]* Diagnosis Cyst of right ovary- Primary Other and unspecified ovarian cyst documented in this encounter [facility]* Diagnosis Preop testing- Primary Unspecified pre-operative examination Bilateral ovarian cysts Other and unspecified ovarian cyst documented [facility]* Diagnosis S/P bilateral salpingo-oophorectomy Acquired absence of organ, genital organs documented [facility]* Diagnosis Post-op pain- Primary Other acute postoperative pain documented [facility] this [facility]* Diagnosis Acute right flank pain- Primary Mild persistent asthma without complication (CMS/HCC) Morbid obesity ([facility]) Morbid obesity Body mass index [BMI] 45.0-49.9, adult (Z68.42) Acute bronchitis due to other specified organisms- Primary Mild persistent asthma with (acute) exacerbation (CMS/[facility]) Acute bronchitis due to other specified organisms- Primary Mixed bipolar I disorder (CMS/[facility]) Bipolar I disorder, most recent episode (or current) mixed, unspecified Mild persistent asthma without complication (CMS/HCC)- Primary Class 3 severe obesity due to excess calories without serious comorbidity with body mass index (BMI) of 50.0 to 59.9 in adult (CMS/[facility]) Fatigue, unspecified type Mixed bipolar I disorder (CMS/HCC) Bipolar I disorder, most recent episode (or current) mixed, unspecified Chronic migraine without aura without status migrainosus, not intractable (CMS/[facility]) Pain, dental Mild persistent asthma with (acute) exacerbation (CMS/HCC)- Primary Generalized edema Edema SOB (shortness of breath) on exertion Shortness of breath Generalized abdominal pain- Primary Abdominal pain, generalized Intractable nausea and vomiting Mild persistent asthma with (acute) exacerbation (CMS/HCC) Visit for wound check Yeast infection [facility] Diagnosis Abdominal wall cellulitis- Primary Postoperative surgical complication involving genitourinary system associated with genitourinary procedure, unspecified complication Postoperative surgical complication involving genitourinary system associated with genitourinary procedure [facility] Diagnosis Acute right flank pain- Primary Mild persistent asthma without complication (CMS/HCC) Morbid obesity ([facility]) Morbid obesity Body mass index [BMI] 45.0-49.9, adult (Z68.42) Acute bronchitis due to other specified organisms- Primary Mild persistent asthma with (acute) exacerbation (CMS/[facility]) Acute bronchitis due to other specified organisms- Primary Mixed bipolar I disorder (CMS/[facility]) Bipolar I disorder, most recent episode (or current) mixed, unspecified Mild persistent asthma without complication ([facility])- Primary Class 3 severe obesity due to excess calories without serious comorbidity with body mass index (BMI) of 50.0 to 59.9 in adult ([facility]) Fatigue, unspecified type Mixed bipolar I disorder ([facility]) Bipolar I disorder, most recent episode (or current) mixed, unspecified Chronic migraine without aura without status migrainosus, not intractable ([facility]) Pain, dental Mild persistent asthma with (acute) exacerbation ([facility]/HCC)- Primary Generalized edema Edema SOB (shortness of breath) on exertion Shortness of breath Generalized abdominal pain- Primary Abdominal pain, generalized Intractable nausea and vomiting Mild persistent asthma with (acute) exacerbation ([facility]) Well woman exam with routine gynecological exam Routine gynecological examination documented in this encounter [facility]* Diagnosis Postoperative surgical complication involving genitourinary system associated with genitourinary procedure, unspecified complication- Primary Post-op pain Other acute postoperative pain Sweating profusely Generalized hyperhidrosis Menopausal symptoms Symptomatic menopausal or female climacteric states Nausea and vomiting, unspecified vomiting type [facility] Diagnosis Post-operative pain- Primary Other acute postoperative pain [facility]* Diagnosis Muscle spasm- Primary Spasm of muscle Fatigue due to depression Nausea and vomiting, unspecified vomiting type Mild persistent asthma without status asthmaticus without complication Psychogenic nonepileptic seizure [facility]* Diagnosis Postoperative surgical complication involving genitourinary system associated with genitourinary procedure, unspecified complication [facility]* Diagnosis Postoperative surgical complication involving genitourinary system associated with genitourinary procedure, unspecified complication [facility] Diagnosis Moderate persistent asthma, unspecified whether complicated [facility] Diagnosis Postoperative infection, unspecified type, subsequent encounter- Primary [facility]* Diagnosis Chronic migraine without aura, [...] [facility]* Diagnosis Intractable chronic migraine without aura and with status migrainosus- Primary Chronic migraine without aura, with intractable migraine, so stated, with status migrainosus Nausea Nausea alone Generalized anxiety disorder [facility]* Diagnosis S/P bilateral salpingo-oophorectomy- Primary Acquired absence of organ, genital organs Menopausal symptoms Symptomatic menopausal or female climacteric states [facility] Diagnosis Moderate persistent asthma with acute exacerbation- Primary Acute pansinusitis, recurrence not specified Antibiotic-induced yeast infection [facility] Diagnosis Moderate persistent asthma, unspecified whether complicated [facility]* Diagnosis Intractable chronic migraine without aura and without status migrainosus Chronic migraine without aura, with intractable migraine, so stated, without mention of status migrainosus [facility]* Diagnosis Weight loss- Primary Loss of weight Moderate persistent asthma with acute exacerbation Seasonal allergic rhinitis, unspecified trigger [facility] Diagnosis Seasonal allergic rhinitis, unspecified trigger [facility] Diagnosis Family history of genetic disorder- Primary Family history of other condition documented in this encounter [facility] Diagnosis Acute right flank pain- Primary [...] Dyspareunia in female documented in this encounter [facility]* Diagnosis Status migrainosus- Primary Variants of [...] with status migrainosus [facility] Diagnosis Eye infection, bilateral- Primary Ingrown nail of great toe [facility]* Diagnosis Intractable chronic migraine without aura and without status migrainosus- Primary Chronic migraine without aura, with intractable migraine, so stated, without mention of status migrainosus [facility] Diagnosis Chronic migraine without aura, [...] [facility] Family history of genetic disorder- Primary Family history of other condition documented [facility] this [facility] Diagnosis Allergic reaction, sequela- Primary documented [facility]* Diagnosis Intractable chronic migraine without aura and without status migrainosus- Primary Chronic migraine without aura, with intractable migraine, so stated, without mention of status migrainosus [facility] Diagnosis Acute right flank pain- Primary Mild persistent asthma without complication (HCC) Morbid obesity ([facility]) Morbid obesity Body mass index [BMI] 45.0-49.9, [...] (BMI) of 50.0 to 59.9 in adult ([facility]) Fatigue, unspecified type Mixed bipolar I disorder [...] to surgical menopause [facility] Diagnosis Moderate persistent asthma, unspecified whether complicated [facility] Diagnosis Muscle spasm Spasm of muscle [facility]* Diagnosis Left otitis media, unspecified otitis media type- Primary Mild asthma with exacerbation, unspecified whether persistent [facility] Dis[facility] instructionsNot on filedocumented in this [...] sent through Care Everywhere. * Ingrown toenail (Senegalese) [facility] System[facility]ructionsNot on file documented in [facility] SystemReason for referral (narrative)* Outpatient Procedure (Routine) - Pending Review Specialty Diagnoses / Procedures Referred By Sushma veloz Referred To Contact [facility] Diagnoses Seizure-like activity (HCC) Procedures EPIL EEG LEAD PLACEMENT EEG EXTENDED MONITORING 61-119 MINUTES ELECTROENCEPHALOGRAM REC COMA/SLEEP ONLY Geri Madera, UMANG.[facility] [address] [place] [address] [id number] [place] [address] Referral ID Status Reason Start Date Expiration Date Visits Requested Visits Authorized [id number] Pending Review Auto-Generat ed Referral 10/26/2021 10/26/2022 1 1 [facility] for referral (narrative)* Outpatient Procedure (Routine) - Pending Review Specialty Diagnoses / Procedures Referred By Contac t Referred To [facility] Diagnoses Psychogenic nonepileptic seizure Spells of trembling Procedures EPIL AMBULATORY EEG EEG COMPLETE STD PHYS/QHP&GT;84 HR W/O Tyrone Diaz MD, PhD [address] [place] [address] [place] [address] Referral ID Status Reason Start Date Expiration Date Visits Requested Visits Authorized [id number] Pending Review Auto-Generat ed Referral 10/29/2021 10/29/2022 1 1 * Outpatient Procedure (Routine) - Pending Review Specialty Diagnoses / Procedures Referred By Contac t Referred To [facility] Diagnoses Psychogenic nonepileptic seizure Spells of trembling Procedures EPIL AMBULATORY EEG EEG COMPLETE STD PHYS/QHP&GT;84 HR W/O Tyrone Diaz MD, PhD [address] [place] [address] [place] [address] Referral ID Status Reason Start Date Expiration Date Visits Requested Visits Authorized [id number] Pending Review Auto-Generat ed Referral 10/29/2021 10/29/2022 1 1 * Consult, Test, Treat (Routine) - Authorized Specialty Diagnoses / Procedures Referred By Contac t Referred To Contact Diagnoses Chronic intractable headache, unspecified headache type Procedures CONSULT TO HEADACHE CLINIC OFFICE/OUTPATIENT NEW HIGH MDM 60-74 MINUTES Tyrone Dolan MD, PhD [address] [employer] [address] [place] [address] Referral ID Status Reason Start Date Expiration Date Visits Requested Visits Authorized [id number] Authorized PCP Requested Referral 10/29/2021 10/29/2022 1 1 [facility] for referral (narrative)* Outpatient Procedure (Routine) - Pending Review Specialty Diagnoses / Procedures Referred By Contac t Ref[facility] Diagnoses Seizure-like activity (HCC) Procedures EPIL EEG ROUTINE ELECTROENCEPHALOGRAM REC COMA/SLEEP ONLY Nelly Saldaña PA-C [address] [employer] [facility] [address] [place] [address] [facility] [id number] Referral ID Status Reason Start Date Expiration Date Visits Requested Visits Authorized [id number] Pending Review Auto-Generat ed Referral 11/08/2021 11/08/2022 1 1 [facility] for referral (narrative)* Misc (Routine) - Pending Review Specialty Diagnoses / Procedures Referred By Contac t Referred To Contact Procedures Discharge Follow-Up George Michelle MD [address] [address] Phone: tel: fax: Referral ID Status Reason Start Date Expiration Date V isits Requested Visits Authorized [id number] Pending Review 04/10/2024 04/10/2025 1 1 * Misc (Routine) - Pending Review Specialty Diagnoses / Procedures Referred By Contac t Referred To Contact Procedures Hygiene George Michelle MD [address] [address] Phone: tel: fax: Referral ID Status Reason Start Date Expiration Date V isits Requested Visits Authorized [id number] Pending Review 04/10/2024 04/10/2025 1 1 [facility] Advance Directives No Advanced Directives Records FoundDocuments on File Type Date Recorded Patient Data Entry Expl anation ACP-Advance Directive ACP-Power of Powerhouse Helper Latest Code Status on File Code [...] veloz Referred To Contact Jesse Borrego MD [address] [place] [address] Referral ID Status Reason Start Date Expiration Date Visits Re quested Visits Authorized [id number] Closed 1 1 Specialty Diagnoses / Procedures Referred By Sushma veloz Referred To Contact Diagnoses Intractable chronic migraine without aura and with status migrainosus Intractable chronic migraine without aura and without status migrainosus Procedures PROVIDER ORDERED FOLLOW UP OFFICE/OUTPATIENT [facility] 60 MINUTES Suzan Ivey APRN.CNP [address] [place] [address] Referral ID Status Reason Start Date Expiration Date Visits Requested Visits Authorized [id number] Authorized PCP Requested Referral 07/13/2023 04/13/2024 1 1 Specialty Diagnoses / Procedures Referred By Contac t Referred To Contact Diagnoses Intractable chronic migraine without aura and without status migrainosus Procedures PROVIDER ORDERED FOLLOW UP OFFICE/OUTPATIENT [facility] MDM 60 MINUTES Sagar Barth APRN.[employer]QU[employer] CENTER ASSEMBLER [address] [place] [address] Referral ID Status Reason Start Date Expiration Date Visits Requested Visits Authorized [id number] Authorized PCP Requested Referral 10/10/2023 07/09/2024 1 1 Specialty Diagnoses / Procedures Referred By Contac t Referred To Contact Sagar Barth APRN.LIQUID CENTER ASSEMBLER [address] [place] [address] Referral ID Status Reason Start Date Expiration Date V isits Requested Visits Authorized [id number] Authorized 07/10/2023 09/22/2023 1 1 Specialty Diagnoses / Procedures Referred By Contac t Referred To Contact Psychology Diagnoses Psychogenic nonepileptic seizure Procedures CONSULT TO PSYCHOLOGY OFFICE/OUTPATIENT [facility] 60 MINUTES Curtis Lepe PA-C [address] [place] [address] Referral ID Status Reason Start Date Expiration Date Visits Requested Visits Authorized [id number] Pending Review PCP Requested Referral 08/18/2023 08/17/2024 [...] Headache Specialty Diagnoses / Procedures Referred By Contselean t Referred To Contact Diagnoses Intractable chronic migraine without aura and without status migrainosus Procedures INJECTION, EPTINEZUMAB-JJMR, 1 MG Sagar Barth, PR INTERN.LIQU[employer] CENTER ASSEMBLER [address] [place] [address] Phone: tel: fax: Neurology [address] [place] [address] Phone: tel: fax: Referral ID Status Reason Start Date Expiration Date V isits Requested Visits Authorized [id number] Authorized 09/20/2023 09/25/2024 5 5 Reason Comments Headache Infusion Specialty Diagnoses / Procedures Referred By Contac t Referred To Contact Diagnoses Intractable chronic migraine without aura and without status migrainosus Procedures INJECTION, EPTINEZUMAB-JJMR, 1 MG Sagar Barth, UMANG.[employer] CENTER AS[employer]BLER [address] [place] [address] Phone: tel: fax: Neurology [id number] Phone: tel: fax: Reason Comments Infusion Headache Specialty Diagnoses / Procedures Referred By Contac t Referred To Contact Neurology / HEADACHE Diagnoses NON-DHE #1 Procedures INFUSION HEADACHE Suzan Ivey APRN.LIQUID CENTER ASSEMBLER [address] [place] [address] Neur Headache [address] [place] [address] Referral ID Status Reason Start Date Expiration Date V isits Requested Visits Authorized [id number] Authorized 04/12/2023 02/20/2024 99 99 Reason Comments Migraine Specialty Diagnoses / Procedures Referred By Contac t Referred To Contact Diagnoses Intractable chronic migraine without aura and without status migrainosus Procedures PROVIDER ORDERED FOLLOW UP OFFICE/OUTPATIENT [facility] 60 MINUTES Sagar Barth, UMANG.[employer]QU[employer] CENTER ASSEMBLER [address] [place] [address] Referral ID Status Reason Start Date Expiration Date V isits Requested Visits Authorized [id number] Closed PCP Requested Referral 10/10/2023 07/09/2024 1 1 Specialty Diagnoses / Procedures Referred By Contac t Referred To Contact Diagnoses Intractable chronic migraine without aura and without status migrainosus Procedures INJECTION, EPTINEZUMAB-JJMR, 1 MG Sagar Barth, PR INTERN.[employer] CENTER ASSEMBLER [address] [place] [address] Ne[address] Headache [address] [place] [address] Referral ID Status Reason Start Date Expiration Date V isits Requested Visits Authorized [id number] Authorized 09/20/2023 03/22/2024 2 2 Reason Comments Nerve Block Specialty Diagnoses / Procedures Referred By Contac t Referred To Contact Neurology / HEADACHE Diagnoses NON-DHE #1 Procedures INFUSION HEADACHE Suzan Ivey, PR INTERN.[employer] CENTER ASSEMBLER [address] [place] [address] Neur Headache [address] [place] [address] Reason Comments Future Appointment [place], Any Reason Comments Migraine seen at [facility] yest erday for Migrane and D & [...] INFUSION HEADACHE Abdifatah Brady MD [address] [place] [address] Neur Headache [address] [place] [address] Referral ID Status Reason Start Date Expiration Date Visits Re quested Visits Authorized [id number] Closed 07/28/2022 09/26/2022 1 1 Reason Comments Chronic Migraine Reason Comments Chronic Migraine Reason Comments Insurance Authorization Zomig 5MG nasal spray Reason Comments Infusion Specialty Diagnoses / Procedures Referred By Contac t Referred To Contact Neurology / HEADACHE Diagnoses POSSIBLE DHE/WAITING FOR ORDERS Procedures INFUSION HEADACHE Self Neur Headache [address] [place] [address] Referral ID Status Reason Start Date Expiration Date V isits Requested Visits Authorized [id number] Authorized 11/10/2022 02/08/2023 1 99 Reason Onset [...] Migraine Specialty Diagnoses / Procedures [facility] Referred To Contact Neurology / HEADACHE Diagnoses Chronic migraine without aura, intractable, without status migrainosus Migraines Nerve Block Procedures INJECTION AA&/STRD GRE[facility] NERVE NERVE BLOCK Sagar Barth, UMANG.[employer] CENTER AS[employer]BLER [id number] Tyrone Dolan MD, PhD [address] [facility] [address] [place] [address] Referral ID Status Reason Start Date Expiration Date Visits Re quested Visits Authorized [id number] Closed 08/28/2023 02/20/2024 1 1 Reason Onset Date Comments Refill Request 11/10/2023 Specialty Diagnoses / Procedures Referred By Contac t Referred To Contact Diagnoses Intractable chronic migraine without aura and without status migrainosus Procedures INJECTION, EPTINEZUMAB-JJMR, 1 MG Sagar Barth, PR INTERN.[employer] CENTER ASSEMBLER [address] [place] [address] Neur Headache [address] [id number] Reason Comments Fatigue Dizzy, shaky, very t [...] preoperative pulmonary examination Mundo Martinez MD [address] [place] [address] Phone: tel: fax: Jefry Hills MD [address] [place], [address] [address] Phone: tel: fax: Referral ID Status Reason Start Date Expiration Date Visits Requested Visits Authorized [id number] Pending Review Specialty Services Required 03/20/2024 03/20/2025 1 1 Reason Comments Wound Check Reason Comments Flu Symptoms Abdominal Pain Specialty Diagnoses / Procedures Referred By Contac t Referred To Contact Diagnoses Sepsis ([facility]) Abdominal wall cellulitis [facility] - Emergency Department [address] [place] [address] Phone: tel: fax: Referral ID Status Reason Start Date Expiration Date Visits Re quested Visits Authorized [id number] 1 1 Reason Comments Well Women Visit [...] NON-DHE INFUSION Procedures DEHYDROERGOTAMINE INJECTION INFUSION HEADACHE [address] [address] Phone: tel:[phone] Neurology [address] [place] [address] Phone: tel: fax: Referral ID Status Reason Start Date Expiration Date V isits Requested Visits Authorized [id number] Authorized 08/02/2024 02/19/2025 99 99 Reason Comments Insurance Authorization Zavzpret 10MG/AC T solution Zavzpret 10MG/ACT solution Reason Onset Date Comments Genetic Testing Prior Authorization Request 07/2024 Reason Comments Discuss Hormones Reason Comments Nasal Congestion Scheduled Active and Recently Administ ered Medications [...] Yun Neal RN) PRN Medication Order 10/18/2021 10/19/202110/2010/20/2021 0.9 % sodium chloride infusion IntraVENous, at [...] crushed and administered in tubes (except j-tube) 221 (Given - Provider: Lo Peres RN) 1018 (Given - Provider: Fredi Lowe RN)2135 (Given - Provider: Corby Bojorquez RN) 0828 [...] Look-alike/sound-alike medication - verify indication for use. 155 (Given - Provider: Lillie Antonio RN) estradioL (VIVELLE-DOT) 0.0375 mg/24 hr 1 patch 1 patch, transdermal, 2 times weekly (Once per day on Monday), First dose on Mon04/09/24 at 0915, Remove previous patch, if present, before applying new. Remove for MRI. Place on trunk of body (preferably abdomen). Rotate application sites allowing a 1-week interval between applications at a particular site. 101 (Medication Applied - Provider: Fredi Lowe RN [...] 120mg/24 hours. 1159 (Given - Provider: Fredi Lowe RN) lamoTRIgine (LaMICtal) tablet 200 mg 200 [...] needed per OBGYN) lidocaine-EPINEPHrine (XYLOCAINE W/EPI) 1 %-1:118118 injection 30 mL (COMPLETED) 30 mL, intradermal, [...] after activating; dissolve drug prior to administration 2228 (New Bag - Provider: Lo Peres RN)2258 (Stop Bag - Provider: Lo Peres RN) sodium chloride 0.9 % bolus (COMPLETED) 2,000 mL, intravenous, at 3,871 mL/hr, Administer over 31 Minutes, Once, On Mon04/08/24 at 1335, For 1 dose 1415 (New Bag - Provider: Lillie Antoino, RN)1446 (Stop Bag - Provider: Lillie Antonio, RN) traZODone (DESYREL) tablet 300 mg 300 mg, oral, Nightly, First dose on Mon04/09/24 at 0100, Look-alike/sound-alike medication - verify indication for use. 0117 (Given - Provider: Lo Peres RN)2137 (Given - Provider: Corby Bojorquez, RN) vancomycin (VANCOCIN) IVPB 1250 mg/250 mL in 0.9% sodium chloride (premix) (CANCELED) 1,250 mg, intravenous, at 167 mL/hr, Administer over 90 Minutes, Every 8 hours, First dose on Mon04/09/24 at 1030, VESICANT (YELLOW), Indication: Other, Specify: peritonitis 1215 (New Bag - Provider: Fredi Lowe, PRATIBHA)1345 (Stop Bag - Provider: Fredi Lowe, PRATIBHA)2133 (New Bag - Provider: Corby Bojorquez, PRATIBHA)2303 (Stop Bag - Provider: Corby Bojorquez, RN) 0440 (New Bag - Provider: Corby Bojorquez, PRATIBHA)0610 (Stop Bag - Provider: Corby Bojorquez, RN) [...] Lo Peres RN)1008 (Given - Provider: Fredi Lowe, PRATIBHA)1516 (Given - Provider: Fredi Lowe, RN)2115 (Given - Provider: Corby Bojorquez, PRATIBHA) ibuprofen [...] - verify indication for use. Immediate release. 184 (Given - Provider: Fredi Lowe RN)2218 (Given - Provider: Lo Peres, RN) 0203 (Given - Provider: Lo Peres, RN)0704 (Given - Provider: Lo Peres, RN) oxyCODONE (ROXICODONE) immediate release tablet 5 mg 5 mg, oral, Every 4 hours PRN, severe pain - pain scale 7-10, Starting on Mon04/09/24 at 1549, Look-alike/sound-alike medication - verify indication for use. Immediate release. 1847 (Given - Provider: Fredi Lowe RN) 0832 (Given - Provider: Effie Keene, RN)1502 (Given - Provider: Effie Keene, PRATIBHA) sodium [...] content) DATE CREATED AUTHOR 12/26/2020 Maggie Espinal [facility] DATE CREATED AUTHOR AUTHOR'S ORGANIZ ATION 10/25/2021 [facility] DATE CREATED AUTHOR AUTHOR'S ORGANIZ ATION 05/26/2022 [facility] DATE CREATED AUTHOR AUTHOR'S ORGANIZ ATION 08/02/2022 [facility] DATE CREATED AUTHOR AUTHOR'S ORGANIZ ATION 07/20/2024 [facility] DATE CREATED AUTHOR AUTHOR'S ORGANIZ ATION 09/07/2024 [facility] DATE CREATED AUTHOR AUTHOR'S ORGANIZ ATION 11/28/2024 [facility] DATE CREATED AUTHOR AUTHOR'S ORGANIZ ATION 11/29/2024 [facility] Ordered Prescriptions (unrec ognized section and content) Prescription Sig Dispensed Refills Start Date End Da te lamoTRIgine (LAMICTAL) 25 MG tablet Take 2 tablets by mouth daily 30 tablet 3 10/21/2021 Care Teams (unrecognized sec tion and content) Food Analyst Relationship Specialty Start Date End Date RandellDerik rick Pamela, PR INTERN - LIQUID CENTER ASSEMBLER [address] [place] [address] PCP - General Nurse Practitioner 12/24/20 Food Analyst Relationship Specialty Start Date End Date Hoy, Abdifatah M (Historical) PCP - General 05/21/13 Food Analyst Relationship Specialty Start Date End Date Hoy, Abdifatah M (Historical) PCP - General 05/21/13 Food Analyst Relationship Specialty Start Date End Date Hoy, Abdifatah M (Historical) PCP - General 05/21/13 Food Analyst Relationship Specialty Start Date End Date Hoy, Abdifatah M (Historical) PCP - General 05/21/13 Food Analyst Relationship Specialty Start Date End Date Hoy, Abdifatah M (Historical) PCP - General 05/21/13 Food Analyst Relationship Specialty Start Date End Date Hoy, Abdifatah M (Historical) PCP - General 05/21/13 Food Analyst Relationship Specialty Start Date End Date Hoy, Abdifatah M (Historical) PCP - General 05/21/13 Food Analyst Relationship Specialty Start Date End Date Hoy, Abdifatah M (Historical) PCP - General 05/21/13 Food Analyst Relationship Specialty Start Date End Date Hoy, Abdifatah M (Historical) PCP - General 05/21/13 Food Analyst Relationship Specialty Start Date End Date Hoy, Abdifatah M (Historical) PCP - General 05/21/13 Food Analyst Relationship Specialty Start Date End Date Hoy, Abdifatah M (Historical) PCP - General 05/21/13 Food Analyst Relationship Specialty Start Date End Date Hoy, Abdifatah M (Historical) PCP - General 05/21/13 Food Analyst Relationship Specialty Start Date End Date Hoy, Abdifatah M (Historical) PCP - General 05/21/13 Food Analyst Relationship Specialty Start Date End Date Hoy, Abdifatah M (Historical) PCP - General 05/21/13 Food Analyst Relationship Specialty Start Date End Date Hoy, Abdifatah M (Historical) PCP - General 05/21/13 Food Analyst Relationship Specialty Start Date End Date Hoy, Abdifatah M (Historical) PCP - General 05/21/13 Food Analyst Relationship Specialty Start Date End Date Hoy, Abdifatah M (Historical) PCP - General 05/21/13 Food Analyst Relationship Specialty Start Date End Date Hoy, Abdifatah M (Historical) PCP - General 05/21/13 Food Analyst Relationship Specialty Start Date End Date Hoy, Abdifatah M (Historical) PCP - General 05/21/13 Food Analyst Relationship Specialty Start Date End Date Hoy, Abdifatah M (Historical) PCP - General 05/21/13 Food Analyst Relationship Specialty Start Date End Date Hoy, Abdifatah M (Historical) PCP - General 05/21/13 Food Analyst Relationship Specialty Start Date End Date Hoy, Abdifatah M (Historical) PCP - General 05/21/13 Food Analyst Relationship Specialty Start Date End Date Hoy, Abdifatah M (Historical) PCP - General 05/21/13 Food Analyst Relationship Specialty Start Date End Date Hoy, Abdifatah M (Historical) PCP - General 05/21/13 Food Analyst Relationship Specialty Start Date End Date Hoy, Abdifatah M (Historical) PCP - General 05/21/13 Food Analyst Relationship Specialty Start Date End Date Hoy, Abdifatah M (Historical) PCP - General 05/21/13 Food Analyst Relationship Specialty Start Date End Date Hoy, Abdifatah M (Historical) PCP - General 05/21/13 Food Analyst Relationship Specialty Start Date End Date Hoy, Abdifatah M (Historical) PCP - General 05/21/13 Food Analyst Relationship Specialty Start Date End Date Hoy, Abdifatah M (Historical) PCP - General 05/21/13 Food Analyst Relationship Specialty Start Date End Date Hoy, Abdifatah M (Historical) PCP - General 05/21/13 Food Analyst Relationship Specialty Start Date End Date Hoy, Abdifatah M (Historical) PCP - General 05/21/13 Food Analyst Relationship Specialty Start Date End Date Hoy, Abdifatah M (Historical) PCP - General 05/21/13 Food Analyst Relationship Specialty Start Date End Date Hoy, Abdifatah M (Historical) PCP - General 05/21/13 Food Analyst Relationship Specialty Start Date End Date Hoy, Abdifatah M (Historical) PCP - General 05/21/13 Food Analyst Relationship Specialty Start Date End Date Lamont Shay MD [address] [place] [address] PCP - General Family Medicine 03/14/23 Food Analyst Relationship Specialty Start Date End Date Hoy, Abdifatah M (Historical) PCP - General 05/21/13 Food Analyst Relationship Specialty Start Date End Date Lamont Shay MD [address] [place] [address] PCP - General Family Medicine 03/14/23 Food Analyst Relationship Specialty Start Date End Date Lamont Shay MD [address] [place] [address] PCP - General Family Medicine 03/14/23 Food Analyst Relationship Specialty Start Date End Date Abdifatah Brady (Historical) PCP - General 05/21/13 Food Analyst Relationship Specialty Start Date End Date Abdifatah Brady (Historical) PCP - General 05/21/13 Food Analyst Relationship Specialty Start Date End Date Lamont Shay MD [address] [place] [address] PCP - General Family Medicine 03/14/23 Food Analyst Relationship Specialty Start Date End Date Abdifatah Brady (Historical) PCP - General 05/21/13 Food Analyst Relationship Specialty Start Date End Date Lamont Shay MD [address] [place] [address] PCP - General Family Medicine 03/14/23 Food Analyst Relationship Specialty Start Date End Date Lamont Shay MD [address] [place] [address] PCP - General Family Medicine 03/14/23 Food Analyst Relationship Specialty Start Date End Date Lamont Shay MD [address] [place] [address] PCP - General Family Medicine 03/14/23 Food Analyst Relationship Specialty Start Date End Date Lamont Shay MD [address] [place] [address] PCP - General Family Medicine 03/14/23 Food Analyst Relationship Specialty Start Date End Date Lamont Shay MD [address] [place] [address] PCP - General Family Medicine 03/14/23 Food Analyst Relationship Specialty Start Date End Date Lamont Shay MD [address] [place] [address] PCP - General Family Medicine 03/14/23 Food Analyst Relationship Specialty Start Date End Date Lamont Shay MD [address] [place] [address] PCP - General Family Medicine 03/14/23 Food Analyst Relationship Specialty Start Date End Date Lamont Shay MD [address] [place] [address] PCP - General Family Medicine 03/14/23 Food Analyst Relationship Specialty Start Date End Date Lamont Shay MD [address] [place] [address] PCP - General Family Medicine 03/14/23 Food Analyst Relationship Specialty Start Date End Date Lamont Shay MD [address] [place] [address] PCP - General Family Medicine 03/14/23 Food Analyst Relationship Specialty Start Date End Date Lamont Shay MD [address] [place] [place] [address] PCP - General Family Medicine 03/14/23 Food Analyst Relationship Specialty Start Date End Date Lamont Shay MD [address] [place] [address] PCP - General Family Medicine 03/14/23 Food Analyst Relationship Specialty Start Date End Date Lamont Shay MD [address] [place] [address] PCP - General Family Medicine 03/14/23 Food Analyst Relationship Specialty Start Date End Date Lamont Shay MD [address] [place] [address] PCP - General Family Medicine 03/14/23 Food Analyst Relationship Specialty Start Date End Date Lamont Shay MD PCP - General Family Medicine 06/22/22 Food Analyst Relationship Specialty Start Date End Date Lamont Shay MD PCP - General Family Medicine 06/22/22 Food Analyst Relationship Specialty Start Date End Date Lamont Shay MD PCP - General Family Medicine 06/22/22 Food Analyst Relationship Specialty Start Date End Date Lamont Shay MD PCP - General Family Medicine 06/22/22 Food Analyst Relationship Specialty Start Date End Date Lamont Shay MD PCP - General Family Medicine 06/22/22 Food Analyst Relationship Specialty Start Date End Date Lamont Shay MD PCP - General Family Medicine 06/22/22 Food Analyst Relationship Specialty Start Date End Date Corine Gold MD [address], [place] [address] PCP - General Internal Medicine 03/25/24 Food Analyst Relationship Specialty Start Date End Date Croine Gold MD [address], [place] [address] PCP - General Internal Medicine 03/25/24 Food Analyst Relationship Specialty Start Date End Date Corine Gold MD [address], [place] [address] PCP - General Internal Medicine 03/25/24 Food Analyst Relationship Specialty Start Date End Date Corine Gold MD [address], [place] [address] PCP - General Internal Medicine 03/25/24 Food Analyst Relationship Specialty Start Date End Date Lamont Shay MD [address] [place] [address] PCP - General Family Medicine 03/14/23 Food Analyst Relationship Specialty Start Date End Date Corine Gold MD [address], [place] [address] PCP - General Internal Medicine 03/25/24 Food Analyst Relationship Specialty Start Date End Date Lamont Shay MD [address] [place] [id number] PCP - General Family Medicine 03/14/23 Food Analyst Relationship Specialty Start Date End Date Lamont Shay MD [address] [place] [id number] PCP - General Family Medicine 03/14/23 Food Analyst Relationship Specialty Start Date End Date Corine Gold MD [address], [place] [address] PCP - General Internal Medicine 03/25/24 Food Analyst Relationship Specialty Start Date End Date Corine Godl MD [address], [place] [address] PCP - General Internal Medicine 03/25/24 Food Analyst Relationship Specialty Start Date End Date Corine Gold MD [address], [place] [address] PCP - General Internal Medicine 03/25/24 Food Analyst Relationship Specialty Start Date End Date Corine Gold MD [address], [place] [address] PCP - General Internal Medicine 03/25/24 Food Analyst Relationship Specialty Start Date End Date Corine Gold MD [address], [place] [address] PCP - General Internal Medicine 03/25/24 Food Analyst Relationship Specialty Start Date End Date Corine Gold MD [address], [place] [address] PCP - General Internal Medicine 03/25/24 Food Analyst Relationship Specialty Start Date End Date Corine Gold MD [address], [place] [address] PCP - General Internal Medicine 03/25/24 Food Analyst Relationship Specialty Start Date End Date Corine Gold MD [address], [place] [address] PCP - General Internal Medicine 03/25/24 Food Analyst Relationship Specialty Start Date End Date Corine Gold MD [address], [place] [address] PCP - General Internal Medicine 03/25/24 Food Analyst Relationship Specialty Start Date End Date Corine Gold MD [address], [place] [address] PCP - General Internal Medicine 03/25/24 Food Analyst Relationship Specialty Start Date End Date Corine Gold MD [address], [place] [address] PCP - General Internal Medicine 03/25/24 Food Analyst Relationship Specialty Start Date End Date Abdifatah Brady (Historical) PCP - General 05/21/13 Food Analyst Relationship Specialty Start Date End Date Corine Gold MD [address], [place] [address] PCP - General Internal Medicine 03/25/24 Food Analyst Relationship Specialty Start Date End Date Corine Gold MD [address] [place] [address] PCP - General Internal Medicine 03/25/24 Food Analyst Relationship Specialty Start Date End Date Unallocated, Nelson Davalos MD [facility] [place] [address] PCP - General Family Medicine 04/22/24 Food Analyst Relationship Specialty Start Date End Date Unallocated, Nelson Davalos MD [facility] [place] [address] PCP - General Family Medicine 04/22/24 Food Analyst Relationship Specialty Start Date End Date Corine Gold MD [address] [place] [address] PCP - General Family Medicine 06/11/24 Food Analyst Relationship Specialty Start Date End Date Corine Gold MD [address] [place] [address] PCP - General Internal Medicine 03/25/24 Food Analyst Relationship Specialty Start Date End Date Corine Gold MD [address] [place] [address] PCP - General Family Medicine 06/11/24 Food Analyst Relationship Specialty Start Date End Date Abdifatah Brady (Historical) PCP - General 05/21/13 Food Analyst Relationship Specialty Start Date End Date Abdifatah Brady (Historical) PCP - General 05/21/13 Food Analyst Relationship Specialty Start Date End Date Corine Gold MD [address] [place] [address] PCP - General Internal Medicine 03/25/24 Food Analyst Relationship Specialty Start Date End Date Corine Gold MD [address] [facility] [place] [address] PCP - General Internal Medicine 03/25/24 Inactive [...] mg, INTRAVENOUS, NEEDED, 2 doses, Starting on Mon04/13/23 at 0819, Until Mon04/13/23 at 1315, Sedation/Dystonia/Akathis ia/Anxiety 3rd line Given 04/13/2023 9:04 AM EST 25 mg keTORolac 30 mg injection (Toradol) 30 mg, INTRAVENOUS, ONCE, 1 dose, On Mon04/13/23 at 0830, Ketorolac (Toradol) is indicated for [...] 4 HOURS NEEDED, 2 doses, Starting on Mge 04/13/23 at 0819, Until Meg 04/13/23 at [...] BE BASED ON THE PRIMARY CLINICAL RECORDS. [employer] provides no warranty or guarantee of the accuracy or completeness of information in this document.
[2024-12-01] MEDS: MAGNESIUM SULFATE IN WATER 2 GM/50 ML PREMIX IV (04:25)
[2024-12-01] MEDS: 0.9 % SODIUM CHLORIDE 1,000 ML 1000 ML IV (04:25)
[2024-12-01] MEDS: DIPHENHYDRAMINE HCL 50 MG/ML VIAL 25 MG IVP (04:26)
[2024-12-01] MEDS: KETOROLAC TROMETHAMINE 30 MG/ML VIAL IVP (04:26)
--- NOTE | 2024-12-01 04:38 | ED.GENADUL1 ---
HPI HPI - General Adult General Chief complaint: Headache Stated complaint: migraine Time Seen by Provider: 12/01/24 03:54 Source: patient Mode of arrival: walk-in Limitations: no limitations History of Present Illness HPI narrative: Patient is a 29-year-old female presenting to the emergency department for evaluation of a migraine. Patient states he has longstanding history of chronic migraines. She is scheduled to get her Vyepti infusion with neurology in the upcoming week. She states that this headache has been ongoing for the last 6 days. She states it is associated with nausea and vomiting. This is typical for her chronic migraines. She denies any changes in the migraine characteristic. No history of trauma. No neck pain or stiffness. No fevers or chills. No chest pain or shortness of breath. Related Data Home Medications ?Medication ?Instructions ?Recorded ?Confirmed diazepam 10 mg tablet 5 mg PO QID PRN seizures 07/20/22 09/09/24 epinephrine 0.3 mg/0.3 mL 0.3 mg IM Q10M PRN anaphylaxis 07/20/22 09/09/24 injection, auto-injector diphenhydramine HCl 25 mg capsule 75 mg PO Q6H PRN migraine headache 01/26/23 09/09/24 (Benadryl) albuterol sulfate 90 mcg/actuation 2 puff inhalation Q4H PRN 08/16/23 08/16/24 aerosol inhaler shortness of breath or wheezing magnesium oxide 400 mg (241.3 mg 400 mg PO .qhs 08/16/23 09/09/24 magnesium) tablet zolmitriptan 5 mg nasal spray 1 spray intranasal Q2H PRN headache 08/16/23 09/09/24 amitriptyline 100 mg tablet 50 mg PO DAILY 07/26/24 09/09/24 Previous Rx's ?Medication ?Instructions ?Recorded amoxicillin 500 mg capsule 500 mg PO TID 10 days #30 caps 09/24/24 Allergies Allergy/AdvReac Type Severity Reaction Status Date / Time dihydroergotamine Allergy Unknown Hives Verified 09/23/24 20:33 haloperidol (From Haldol) Allergy Unknown Hives Verified 12/01/24 03:46 vortioxetine Allergy Unknown Hives Verified 09/23/24 20:33 buspirone Allergy Hives Verified 09/23/24 20:33 carbamazepine Allergy Unknown Verified 09/23/24 20:33 levetiracetam (From Keppra) Allergy ITCHING Verified 09/23/24 20:33 azithromycin (From Zithromax) AdvReac Intermediate Hives Verified 09/23/24 20:33 bee venom protein (honey bee) AdvReac Intermediate Hives Verified 09/23/24 20:33 metoclopramide (From Reglan) AdvReac Intermediate panic Verified 09/23/24 20:33 adhesive tape AdvReac Mild Rash Verified 09/23/24 20:33 cephalexin (From Keflex) AdvReac Mild Hives Verified 09/23/24 20:33 dextromethorphan (From AdvReac Mild Unknown Verified 09/23/24 20:33 Endicott DM) pyrilamine (From Endicott DM) AdvReac Mild Unknown Verified 09/23/24 20:33 prochlorperazine (From AdvReac Anxiety Verified 09/23/24 20:33 Compazine) propranolol AdvReac Hives Verified 09/23/24 20:33 Opioid HPI Opioid Management Most Recent Opioid Data: Last Pain Scale 10 Today, 03:43 Last ORT Total Score 0 08/16/23, 14:51 Last ORT Risk Category Low Risk 08/16/23, 14:51 Ur Phencyclidine Scrn, (NEGATIVE) Negative 08/16/23, 15:15 Review of Systems ROS Status of ROS 10 or more systems reviewed and unremarkable except as noted in history and below [facility] Medical History (Updated 12/01/24 @ 06:15 by David Monterroso DO) Chronic pain disorder ?G89.4 - Chronic pain syndrome (ICD-10) Migraine ?G43.909 - Migraine, unspecified, not intractable, without status migrainosus (ICD-10) Seizure disorder ?G40.909 - Epilepsy, unspecified, not intractable, without status epilepticus (ICD-10) Bipolar disorder ?F31.9 - Bipolar disorder, unspecified (ICD-10) Pelvic pain ?R10.2 - Pelvic and perineal pain (ICD-10) Bilateral occipital neuralgia ?M54.81 - Occipital neuralgia (ICD-10) Combative behavior ?R46.89 - Other symptoms and signs involving appearance and behavior (ICD-10) PCOS (polycystic ovarian syndrome) ?E28.2 - Polycystic ovarian syndrome (ICD-10) Mitral valve prolapse ?I34.1 - Nonrheumatic mitral (valve) prolapse (ICD-10) GERD (gastroesophageal reflux disease) ?K21.9 - Gastro-esophageal reflux disease without esophagitis (ICD-10) Depression ?F32.A - Depression, unspecified (ICD-10) Blood in urine ?R31.9 - Hematuria, unspecified (ICD-10) Acne ?L70.9 - Acne, unspecified (ICD-10) Dyspareunia Brain mass ?G93.89 - Other specified disorders of brain (ICD-10) Kidney stones ?N20.0 - Calculus of kidney (ICD-10) COVID-19 ?U07.1 - COVID-19 (ICD-10) Bronchitis ?J40 - Bronchitis, not specified as acute or chronic (ICD-10) Asthma ?J45.909 - Unspecified asthma, uncomplicated (ICD-10) Stress incontinence ?N39.3 - Stress incontinence (female) (male) (ICD-10) Dysuria ?R30.0 - Dysuria (ICD-10) Anxiety ?F41.9 - Anxiety disorder, unspecified (ICD-10) Surgical History H/O laparoscopy (07/21/22) ?Z98.890 - Other specified postprocedural states (ICD-10) S/P RAVI-BSO ?Z90.710 - Acquired absence of both cervix and uterus (ICD-10) ?Z90.722 - Acquired absence of ovaries, bilateral (ICD-10) ?Z90.79 - Acquired absence of other genital organ(s) (ICD-10) Hx laparoscopic cholecystectomy ?Z90.49 - Acquired absence of other specified parts of digestive tract (ICD-10) H/O: ?Z98.891 - History of uterine scar from previous surgery (ICD-10) History of appendectomy ?Z90.49 - Acquired absence of other specified parts of digestive tract (ICD-10) Family History Other Acid reflux Acute renal disease Afib Chromosomal disorder Delayed developmental milestones Diabetes Family history of hypertension High cholesterol Neuro-irritability due to autonomic dysfunction 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 EYES: Sclerae white. EARS, NOSE, THROAT: Moist oral mucosa. RESPIRATORY: Nonlabored respirations. CARDIOVASCULAR: Normal rate and regular rhythm. There is no S3, S4, murmur, rub. GASTROINTESTINAL: Abdomen is nondistended. MUSCULOSKELETAL: No peripheral edema. No nuchal rigidity, ranges neck fully. NEUROLOGIC: Patient is awake and alert. Moving all extremities equally. Facies were symmetrical. Constitutional Vital Signs, click to edit/add: Last Vital Signs Temp 97.6 F 12/01/24 03:43 Pulse 93 H 12/01/24 06:27 Resp 20 12/01/24 06:27 BP 124/88 12/01/24 06:27 Pulse Ox 97 12/01/24 06:27 O2 Del Method Room Air 12/01/24 06:27 Course Vital Signs Vital signs: Vital Signs Temperature 97.6 F 12/01/24 03:43 Pulse Rate 81 12/01/24 03:43 Respiratory Rate 20 12/01/24 03:43 Blood Pressure 119/89 12/01/24 03:43 Pulse Oximetry 98 12/01/24 03:43 Oxygen Delivery Method Room Air 12/01/24 03:43 Temperature 97.6 F 12/01/24 03:43 Pulse Rate 93 H 12/01/24 06:27 Respiratory Rate 20 12/01/24 06:27 Blood Pressure 124/88 12/01/24 06:27 Pulse Oximetry 97 12/01/24 06:27 Oxygen Delivery Method Room Air 12/01/24 06:27 Medical Decision Making MDM Narrative Medical decision making narrative: Patient is a 29-year-old female, history significant for chronic migraines on Vyepti infusions, presenting to the emergency department for evaluation of a migraine x 6 days. Vital signs on arrival are within normal limits. She is afebrile and hemodynamically stable. Examination was unremarkable. Differential diagnosis includes acute on chronic migraines. IV was established under ultrasound guidance. She was given a migraine cocktail with IV Zofran, IV Benadryl, IV magnesium sulfate, IV Toradol, and 1 L bolus normal saline. On reevaluation, patient feels symptomatically improved. She is requesting to be discharged. I do believe the patient is stable for discharge. Patient's presentation is most likely consistent with acute on chronic migraines. They were instructed to follow up with her neurologist as already scheduled. Return precautions were given including any new or worsening symptoms. Patient understands and agrees to the plan. FINAL IMPRESSION: Acute on chronic migraines DISPOSITION: Discharged home CONDITION: Good Discharge Plan Discharge Chief Complaint: Headache Clinical Impression: Migraine Patient Disposition: Home, Self-Care Time of Disposition Decision: 06:15 Condition: Good Mode of Transportation: Private Vehicle Prescriptions / Home Meds: No Action diazepam 10 mg tablet 5 mg PO QID PRN (Reason: seizures) epinephrine 0.3 mg/0.3 mL auto-injector 0.3 mg IM Q10M PRN (Reason: anaphylaxis) Rx Instructions: for 2 doses albuterol sulfate 90 mcg/actuation HFA aerosol inhaler 2 puff INHALATION Q4H PRN (Reason: shortness of breath or wheezing) magnesium oxide 400 mg (241.3 mg magnesium) tablet 400 mg PO .qhs zolmitriptan 5 mg spray,non-aerosol 1 spray INTRANASAL Q2H PRN (Reason: headache) Rx Instructions: May repeat once if needed after =2 hours diphenhydramine HCl [Benadryl] 25 mg capsule 75 mg PO Q6H PRN (Reason: migraine headache) amitriptyline 100 mg tablet 50 mg PO DAILY amoxicillin 500 mg capsule 500 mg PO TID 10 Days Qty: 30 0RF Print Language: Vietnamese Instructions: Migraine Headache (ED) Referrals: Corine Gold ND [Primary Care Provider] - 1 week Discharge Date/Time: 12/01/24 06:32
[2024-12-01] MEDS: CYCLOBENZAPRINE HCL 10 MG TABLET 5 MG PO (05:42)
[2024-12-01 06:27] VITALS: BP 124/88; PULSE 93; O2SAT 97
== END 2024-12-01 06:32 | disposition home or self-care (01) ==
PROVIDERS: Emergency Provider Student in an Organized Health Care Education/Training Program; PCP Student in an Organized Health Care Education/Training Program
DX: G43.909 Migraine, unspecified, not intractable, without status migrainosus (principal)
CPT/HCPCS: 96365; 96375; 99284; J1200; J1885; J2405; J3475

== ENCOUNTER 2024-12-26 09:43 | Emergency (ER) | payer OTHER, SELFPAY ==
--- OUTSIDE RECORDS SUMMARY | 2024-09-24 09:00 | XMS_ITS | Encounter Summary ---
Author Organization [facility] Address [facility] [place] [address] Care Team Providers Care Utilization Management Rn Name Role Phone Abdifatah Brady (Historical) Primary Care Provide r Unavailable Source Comments In the event this information is protected by the Federal Confidentiality of Alcohol and Drug AbusePatient Records regulations: The Federal rules restrict any use of the information to criminally investigate or prosecute any alcohol or drug abuse patient.[facility] Reason for Referral * Consult, Test, Treat (Routine) - AuthorizedSpecialtyDiagnoses / Procedures Referred By ContactReferred To ContactNeurology Diagnoses Dysautonomia (HCC) Procedures OFFICE/OUTPATIENT [facility] 60 MINUTES Griffin Lepe PA-C [address] [place] [address] Phone: tel: fax: Referral IDStatusReasonStart DateExpiration DateVisits RequestedVisits [id number] PCP Requested Referral * Consult, Test, Treat (Routine) - ClosedSpecialtyDiagnoses / ProceduresReferred By ContactReferred To Contact Diagnoses Intractable chronic migraine without aura and with status migrainosus Procedures OFFICE/OUTPATIENT [facility] 60 MINUTES Griffin Lepe PA-C [address] [place] [address] Phone: tel: fax: Referral IDStatusReasonStart DateExpiration DateVisits RequestedVisits [id number] PCP Requested Referral Reason for Visit * ReasonCommentsMigraine Encounter Details DateTypeDepartmentCare Team (Latest Contact Info)Bfyvwczcxbi49/05/2025 10:00 AM EDTDisH[facility] Center [facility]rology [address] [place] [address] Griffin Lepe PA-C [address] [place] [address] Intractable chronic migraine without aura and with status migrainosus (Primary Dx); Dysautonomia (HCC); Menopausal and perimenopausal disorder; Unspecified mood (affective) disorder Social History Tobacco UseTypesPacks/DayYears UsedDateSmoking Tobacco: NeverSmokeless Tobacco: NeverPHQ-2AnswerDate RecordedPHQ-2 raylq650/07/2025Area Deprivation IndexAnswer Date RecordedNational Score (1-100), lower number is lower jibu535706/23/2022State Score (1-10), lower number is lower [id number] from: https://www.neighborhoodatlas.medicine.[facility].edu/. Last address used for xpenkijaunb[address]CommentsNoSex and Gender Information ValueDate RecordedSex Assigned at BirthNot on fileLegal ViqIwqqlf27/01/2014 10:32 AM EDTGender IdentityNot on fileSexual OrientationNot on filedocumented as of this encounter Functional Status * Are you deaf or do you have serious difficulty hearing?AnswerDate of XngiihnceeThnalyDq00/10/2023 6:20 PM Katie Wells RN * Are you blind or do you have serious difficulty seeing, even when wearing glasses?AnswerDate of WzjhskqssfOkzbksLt27/10/2023 6:20 PM Katie Wells RN * Do you have serious difficulty walking or climbing stairs?AnswerDate of IiqpplwupnYmztriFp95/10/2023 6:20 PM Katie Wells RN * Do you have difficulty dressing or bathing?AnswerDate of AssessmentAuthorNo 04/01/2022 6:20 PM Katie Wells RN * Because of a physical, mental, or emotional condition, do you have difficulty doing errands alone such as visiting a doctor's office or shopping?AnswerDate of QehlnaaufrUrlczqRs20/10/2023 6:20 PM Katie Wells RN documented as of this encounter Mental Status * Because of a physical, mental, or emotional condition, do you have serious difficulty concentrating, remembering, or making decisions?AnswerEntry Date JmxaxkVu08/10/2023 6:20 PM Katie Wells RN documented in this encounter Patient Instructions * Patient Instructions* Griffin Lepe PA-C - 09/24/2024 8:14 PM EDT - Continue taking Tegretol (carbamazepine) 100 mg twice daily and Pristiq 50 mg once daily as prescribed. - Stop Lamictal and lithium - these were discontinued by your psychiatrist. - Continue your estrogen (estradiol) 1 mg once daily and progesterone 100 mg once daily for menopause symptoms. - Finish the 10-day course of amoxicillin started in the ER for your sinus infection. - Use your usual migraine rescue medications as needed and make sure you have current refills. - Your next Vyepti infusion is scheduled for October 25 at the increased 300 mg dose; continue your premedications (Benadryl and Zofran) before infusion as you have previously. - Drink plenty of water each day to help with dizziness and headaches; consider adding a little extra salt unless contraindicated. - Pay attention to any dizziness when moving from sitting to standing and note what you???re doing at the time. - A referral to general neurology has been sent for evaluation of possible POTS; contact their office or a local general neurologist to set up that appointment. - If you need additional migraine relief before October 25, consider scheduling a nerve block or aToradol injection on October 07 while you???re in town. - Plan to follow up in about two months to review how you???re doing on the higher Vyepti dose and adjust your headache plan as needed. - You may also schedule with a headache neurologist in six to eight months as availability allows. documented in this encounter Progress Notes * Griffin Lepe PA-C - 09/24/2024 10:00 AM EDT Images from the original note were not [...] physical examination and if necessary,other studies. I havecommunicated my name and active licensure. The patient's [...] Impression and Plan from last visit on 07/04/2024 with me: Coni Nicholson is a 28 year old [...] am very hesitant given adverse reaction, Aimovig, Qulipta,adjunctive Botox, adjusting infusion plan Day 1 of 9 DHE IV infusions with me on 08/02: Assessment: (G43.711) Intractable chronic migraine without aura and with status migrainosus (primary encounter diagnosis) Plan: zavegepant (ZAVZPRET) 10 mg/actuation nasal spray (G43.901) Status migrainosus Coni Nicholson is a 28 year old [...] proper administration without priming. Prescription sent to [facility] home delivery. - Discussed potential for staggered infusions if headaches worsen before the next scheduled Vyepti treatment. - Patient understands and agrees with the treatment plan. [employer] messages from 08/16/24: Not this one I???m not sure I???m getting numbness and tingling in my hands and fingers I???ve never had that before. The pain is behind my eyes and in my neck normally it???s the front of the face.The pain is behind my eyes and in my neck normally it???s the front of the face my eyes are also swollen and face My response: These symptoms sound different from your typical headaches with new onset of neurological symptoms.I would recommend an urgent evaluation by the ER for further evaluation. Interval Headache History: Coni Nicholson is a 28-year-old female with a history of migraines and stress-induced seizures, presenting for follow-up after a recent ER visit. Coni reports that her migraines are triggering stress-induced seizures, leading to increased seizure activity. She was seen in the ER last night, where she received a migraine cocktail including tizanidine, Benadryl, Toradol, magnesium, fluids, and Solu-Medrol, which provided relief. A CT scan revealed sinus inflammation, and she was prescribed a 10-day course of amoxicillin. She does not feel symptomatic of a sinus infection. She experiences migraines 8-12 times per month, characterized by throbbing pain, pressure, photophobia, phonophobia, nausea, osmophobia, and vertigo. Migraines typically begin with dizziness and nausea, followed by the headache. She notes that her migraines worsen in the last month before her Vyepti infusion. She received a nerve block approximately a year ago, which provided temporary relief. She has difficulty keeping oral medications down during migraine episodes. She also reports dizziness upon standing, described as vertigo. An ER physician suggested a possible diagnosis of POTS and recommended further evaluation. Medication changes were made by her psychiatrist one month ago, including starting Tegretol 100 mg ER twice daily and Pristiq 50 mg daily, while discontinuing Lamictal and lithium without titration. She reports improvement in mood and depression with these changes. Additionally, she was started on p rogesterone 100 mg daily about six weeks ago and is also taking estradiol 1 mg daily. She notes improvement in menopausal symptoms with these medications. She is scheduled for her next Vyepti infusion on October 25 and expresses interest in possibly receiving it sooner due to increased migraine frequency. She will be in [place] on October 07 for her daughter's surgery and is considering scheduling a nerve block around that time. Past Diagnostic Results: - CT Scan: Sinus inflammation otherwise unremarkable per patient. I was unable to see the results today In our EMR. Appointment with [facility] at [facility] on 09/03/2024: 1. 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 Pt to start micronized progesterone. Rx for prometrium faxed to pharmacy. Discussed combo med- for future, telehealth in 6 weeks. Preventative: Vyepti 100 mg every 3 months, Lamictal 200mg daily Rescue: Zavprat, zomig nasal spray, phenergan Headache 1 Location: holcephalic Quality/Description: throbbing and pressure Associated Symptoms: Photophobia: yes Phonophobia: yes Nausea: yes Vomiting: yes Other symptoms: osmophobia and vertigo Worse with activity: yes Number of migraine headache days/month: 10 Migraine headache severity: 10 Number of headache free days/month: 10 Duration of headaches with treatment: 13 days (312 hours) Triggers: stress, weather changes, fasting/hunger and dehydration Onset of headache to peak: varies Positional changes: no Most common time of day for headache to begin: evening Aura: blurred vision Allodynia: yes Days missed from work or school in the last month: 14 days Headache status since the last visit: worse Review of Systems: Review of system : unchanged from the previous visit (sleep patterns, mood, energy, appetite, stress, exercising). Prior Therapies Duration of Use Dose Reason for Discontinuation Analgesic Ketorolac (Toradol) Anti-Convulsant Lamotrigine (Lamictal) Topiramate (Topamax, Trokendi XL, Qudexy) Anti-Depressant and Antipsychotic Amitriptyline (Elavil) Pampa (Eskalith, Lithobid) Nortriptyline (Pamelor, Aventyl) Anti-Migraine Dihydroergotamine [...] Intolerance Vortioxetine Hives Prochlorperazine Intolerance Current Medications: carBAMazepine XR (TEGRETOL XR) 100 mg 12 hr tablet Take 100 mg by mouth two times a day. desvenlafaxine ER (PRISTIQ) 50 mg 24 hr tablet Take 50 mg by mouth once daily. progesterone micronized (PROMETRIUM) 100 mg capsule Take 100 mg by mouth once daily. estradiol (ESTRACE) 1 mg tablet Take 1 mg by mouth every morning. zavegepant (ZAVZPRET) 10 mg/actuation nasal spray Use one nasal spray at migraine onset. May use once per 24 hours. magnesium oxide 400 mg magnesium cap Take 1 capsule by mouth daily at bedtime. promethazine (PHENERGAN) 25 mg tablet Take 1 tablet by mouth every 4 hours as needed. FOR NAUSEA keTORolac (TORADOL) 10 mg tablet Take 1 tablet by mouth every 6 hours as needed (severe migraine). chlorzoxazone (PARAFON FORTE DSC) 500 mg tablet Take 1 tablet by mouth two times a day as needed for muscle spasm (migraine). ZOLMitriptan (ZOMIG) 5 mg nasal spray Use 1 [place] in the nose as needed at onset of migraine headache. If symptoms persist or return, may repeat dose in other nostril after 2 hours. Maximum of 2 sprays per 24 hours scopolamine (TRANSDERM-SCOP) patch 1.5 mg/72 hr (delivers 1 mg over 3 days) Apply 1 Patch as directed every 72 hours. APPLY 1 DISC BEHIND THE EAR AT LEAST 4 HOURS PRIOR TO EXPOSURE AND EVERY 3 DAYS NEEDED. albuterol sulfate 90 mcg/actuation breath activated powder inhaler Inhale 2 Puffs as instructed every 6 hours as needed for wheezing/shortness of breath. diazePAM (VALIUM) 10 mg tablet I have reviewed the Health Status Assessment responses and discussed these with the patient: yes Griffin Lepe PA-C HEADACHE SCORES: 05/03/2024 07/04/2024 09/23/2024 Headache Questions ER visits since last office visit: 3 4 2 Hospital stays since last office visit 0 1 1 Limited ADLs in the last month: 16 13 14 Days missed from work or school in the last month: 0 14 Days headache pain free in the last month: 10 Days per month with ALL of the following symptoms - decreased productivity, light sensitivity and nausea: 15 14 Initial improvement of headache after botox injection at last visit: Not applicable, I did not havea botox injection at my last visit Not applicable, I did not have a botox injection at my last visit Not applicable, I did not have a botox injection at my last visit Patient impression of improvement since last visit: No change Minimally improved Minimally improved 05/03/2024 07/04/2024 09/23/2024 HIT-6 HIT-6 78 (Severe impact) 70 (Severe impact) 74 (Severe impact) 05/03/2024 07/04/2024 09/23/2024 OMID - 2/7 SCORES OMID-2 Score 2 3 3 OMID-7 Score 8 8 05/03/2024 07/04/2024 09/23/2024 Migraine Specific QOL - Higher scores indicate better HRQL Role Function-Restrictive Transformed Score (range: 0-100) 40 37.14 11.43 Role Function-Preventive Transformed Score (range: 0-100) 40 20 20 Emotional Function Transformed Score (range: 0-100) 40 13.33 0 03/20/2024 05/03/2024 07/04/2024 PHQ-9 Score 12 9 [...] Most recent CMP/BMP and CBC below CMP: COMPREHENSIVE METABOLIC PANEL Order: [id number] Component Ref Range & Units 5 mo ago Sodium 134 - 146 mmol/L 141 Potassium 3.5 - 5.0 mmol/L 4.1 Chloride 98 - 109 mmol/L 107 Carbon Dioxide 22 - 32 mmol/L 27 Anion Gap 5 - 15 mmol/L 7 BUN 5 - 23 mg/dL 9 CREATEXT 0.40 - 1.00 mg/dL 0.55 Comment: METHOD TRACEABLE TO IDMS STANDARD Glucose 65 - 99 mg/dL 102 High Calcium 8.5 - 10.5 mg/dL 9.2 Total Protein 6.0 - 8.0 g/dL 6.4 Albumin 3.2 - 5.3 g/dL 3.3 Alkaline Phosphatase 39 - 130 U/L 80 AST 0 - 41 U/L 16 ALT 0 - 31 U/L 39 High Total bilirubin 0.3 - 1.2 mg/dL 0.3 eGFR (CKD-EPI)non-race dependent >59 ml/min/1.73sq.m >90 Comment: Reported eGFR is based on the CKD-EPI 2020 equation that does not use a race coefficient. CBC: Latest Ref Rng & Units 04/01/2022 [...] Lymph 1.00 - 4.00 k/uL 0.84 Abs Bull[place] <0.87 k/uL 0.06 Abs Eosin <0.46 k/uL [...] spontaneous and fluent without dysarthria. Short and mcc memory, cognition and general fund of knowledgeare good. Attention span and concentration are excellent. HEENT: Head is normocephalic and features were symmetric. Musculoskeletal: Patient able to sit up right in chair for entirety of visit. Cranial Nerves: III, IV, -EOMI: full. VII-face is symmetric without evidence of weakness. VIII-hearing intact. IMPRESSION: Coni Nicholson is a 28 year old year old female, with a history of asthma, anxiety, depression, PCOS, occipital neuralgia, psychogenic nonepileptic seizures, and chronic migraine. Their neurological examination is essentially normal at this visit although this is limited due to nature of telehealth. 1. Intractable chronic migraine without aura and with status migrainosus (G43.711) - Migraines occurring 2-3 days per week, with associated dizziness, nausea, photophobia, phonophobia, and vertigo; most severe in the last month of Vyepti cycle. - Recent ER visit for severe migraine with seizure activity; treated with tizanidine, Benadryl, Toradol, magnesium, fluids, and Solu-Medrol; CT scan showed sinus inflammation, started on amoxicillin for 10 days. - Previous nerve block on 08/18/2023 provided relief for unspecified interval. Call to schedule greater occipital nerve block while in town later this month to help mitigate wearing off effect from Vyepti. Recommended scheduling TIO to ensure she is able to get an on the specific date while she ishere. - Increase Vyepti dose to 300 mg at next infusion on 10/25. Through multiple discussions I believe the previous reaction she experienced was correlate with the severe anxiety opposed to allergic reaction. Will continue to monitor closely with treatments. - Offered repeat nerve block or Toradol injection as bridge therapy if needed. - Encourage hydration to potentially reduce migraine frequency and severity. - CT Scan: Sinus inflammation otherwise unremarkable per patient. I was unable to see the results today In our EMR. I recommended having her most recent CT brain results faxed over to our department to evaluate. - Follow-up in 2 months to assess response to increased Vyepti dose. 2. Dysautonomia (HCC) (G90.1) - ER physician recommended evaluation for POTS due to positional dizziness and fatigue associated with going from seated position to standing. This is also been a trigger for many of her migraines. - Refer to general neurology for POTS workup. Can follow-up with neuromuscular if needed. - Advised patient to monitor for positional triggers, Changing from seated/laying to standing gradually, and increase fluid intake. 3. Menopausal and perimenopausal disorder (N95.9) - On estradiol 1 mg daily and progesterone 100 mg daily; symptoms improved but still experiencing challenges. - The progesterone was recently started associated with hot flashes thought to correlate with hormonal changes. - This could potentially be another trigger for her recent migraines 4. Unspecified mood (affective) disorder (F39) - Recent medication changes by psychiatry: started Tegretol 100 mg BID and Pristiq 50 mg daily, discontinued Lamictal and lithium. - Changes made 1 month ago; patient reports improvement in mood and depression. - Discussed potential dual benefit of Tegretol and Pristiq for headache and nerve pain; may see more benefit over 2-3 months. Appropriate refills were prescribed. All questions & concerns were addressed. Regular monitoring of CBC + CMP was encouraged to evaluate for kidney/liver function and electrolytes related to long-term medication usage. Patient verbalized understanding and agreed to treatment plan. Future considerations: Aimovig, Qulipta, adjunctive Botox, adjusting infusion plan Prior Authorization: Coni Nicholson has been previously [...] XL, Qudexy) Anti-Depressant and Antipsychotic Amitriptyline (Elavil) Pampa (Eskalith, Lithobid) Nortriptyline (Pamelor, Aventyl) Blood Pressure Propranolol (Inderal) MABs Fremanezumab (Ajovy) Galcanezumab (Emgality) Botulinum Toxin Onabotulinum Toxin A (Botox) Supplements Magnesium The following abortive medications have been tried but require high frequency use which can lead toMedication Overuse Headache: Analgesic Ketorolac (Toradol) Anti-Migraine Dihydroergotamine (DHE-45, Migranal) Naratriptan (Amerge) Sumatriptan (Imitrex, Sumavel) Zolmitriptan (Zomig) MEDICATION TREATMENT: Medications to Start Taking None RESEARCH: None at this time Follow-up: 2 months , for greater occipital nerve block, and call office ([phone]) with problems or concerns before appointment Level of Service: Virtual Visit 32 minutes Recording using [employer] software for draft documentation of the visit was discussed with the patient/authorized event sales representative; all questions welcomed and answered. Patient/authorized event sales representative agreed to proceed This note was partially generated using [employer] voice recognition system, and there may be some incorrect words, spellings, and punctuation that were not noted in checking the note before saving. Griffin Lepe PA-C Headache Section [facility] September 23, 2024 documented in this encounter Plan of Treatment DateTypeDepartmentCare Team (Latest Contact Info)Qygggmzoubo89/16/2026 9:30 AM ESTInfusion Center Neurology [address] [place] [address] vyeptiNameTypePriorityAssociated DiagnosesOrder SchedulePROVIDER ORDERED FOLLOW UPReferralRoutine Intractable chronic migraine without aura and with status migrainosus Expected: 11/25/2024, Expires: 09/24/2025ONSULT TO NEUROLOGYReferralRoutine Dysautonomia (HCC) 1 Occurrences starting 09/24/2024 until 09/24/2025documented as of this encounter Visit Diagnoses Diagnosis Intractable chronic migraine without aura and with status migrainosus- Primary Chronic migraine without aura, with intractable migraine, so stated, with status migrainosus Dysautonomia (HCC) Unspecified disorder of autonomic nervous system Menopausal and perimenopausal disorder Unspecified menopausal and postmenopausal disorder Unspecified mood (affective) disorder documented in this encounter Care Teams Team MemberRelationshipSpecialtyStart DateEnd Date Abdifatah Brady (Historical) PCP - General05/21/13documented as of this encounter
--- OUTSIDE RECORDS SUMMARY | 2024-12-12 08:00 | XMS_ITS | Encounter Summary ---
Author Organization [facility] Address [address] [id number] Care Team Providers Care Ditch Inspector Name Role Phone Abdifatah Brady (Historical) Primary Care Provide r Unavailable Source Comments In the event this information is protected by the Federal Confidentiality of Alcohol and Drug AbusePatient Records regulations: The Federal rules restrict any use of the information to criminally investigate or prosecute any alcohol or drug abuse patient.[facility] Reason for Referral * Physical Therapy (Routine) - Pending ReviewSpecialtyDiagnoses / Procedures Referred By ContactReferred To ContactREHAB AND SPORTS THERAPY INS Diagnoses Intractable chronic migraine without aura and without status migrainosus Procedures PHYSICAL THERAPY EVALUATION HIGH COMPLEX 45 MINS Basil Cornelius DO [address] [place] [address] Phone: tel: fax: [facility] [address] [place] [id number] Referral IDStatusReasonStart DateExpiration DateVisits RequestedVisits [id number] Auto-Generated Referral Scheduling Instructions For an appointment call: [facility]: [phone]. Leonides Serrano/[facility]: [phone], Option 1. [facility]: [phone] [facility]: [phone] [facility]: [phone] [facility] ([place]) ADULTS - For an appointment call: [place], [place]: [phone] ([address]) [place], [place]: [phone] ([address]) or [phone] ([address]) [place], [place]: [phone] ([address]) or [phone] ([address], [address]) or [phone] ([address], [address]) PEDIATRICS - For an appointment call: [place], [place]: [phone] ([address]) The pension agent will assist you in selecting the location and specialty service that will bestmeet your needs. For a list of sites and services: [email or web address] Order Date: December 12, 2024 Ordering Physician: Basil Cornelius DO (Signed Electronically in [facility]) Reason for Visit * ReasonCommentsNew Patient Encounter Details DateTypeDepartmentCare Team (Latest Contact Info)Nvcymoykxjj54/23/2025 9:00 AM EDTOffice Visit Neurology [address] [place] [address] Basil Cornelius DO [address] [place] [address] Intractable chronic migraine without aura and without status migrainosus (Primary Dx); Cervicalgia; Chronic migraine without aura, with intractable migraine, so stated, with status migrainosus; Intractable chronic migraine without aura and with status migrainosus Social History Tobacco UseTypesPacks/DayYears UsedDateSmoking Tobacco: NeverSmokeless Tobacco: NeverPHQ-2AnswerDate RecordedPHQ-2 fsvio673/07/2025Area Deprivation IndexAnswer Date RecordedNational Score (1-100), lower number is lower wasj546906/23/2022State Score (1-10), lower number is lower [id number] from: https://www.neighborhoodatlas.[facility].edu/. Last address used for [address]/23/[address]22CommentsNoSex and Gender Information ValueDate RecordedSex Assigned at BirthNot on fileLegal SnlMixceu86/01/2014 10:32 AM EDTGender IdentityNot on fileSexual OrientationNot on filedocumented as of this encounter Last Filed Vital Signs Vital SignReadingTime TakenCommentsBlood Iaiksska555/7910 8:58 AM EDT Xkwpr35790 8:58 AM EDTTemperature--Respiratory Rate--Oxygen Saturation-- Inhaled Oxygen Concentration--Tbeisx573 kg (282 lb 3 oz)12/12/2024 8:58 AM EDT Height--Body Mass Index51.0207 2:22 PM EDTdocumented in this encounter Functional Status * Are you deaf or do you have serious difficulty hearing?AnswerDate of VzebwrbuiqAgdyeiKb42/10/2023 6:20 PM Katie Wells, PRATIBHA * Are you blind or do you have serious difficulty seeing, even when wearing glasses?AnswerDate of JhipisvcwdVmuyowKn16/10/2023 6:20 PM Katie Wells, PRATIBHA * Do you have serious difficulty walking or climbing stairs?AnswerDate of JkiyrjvkfmMkyqafFw47/10/2023 6:20 PM Katie Wells, RN * Do you have difficulty dressing or bathing?AnswerDate of AssessmentAuthorNo 04/01/2022 6:20 PM Katie Wells, PRATIBHA * Because of a physical, mental, or emotional condition, do you have difficulty doing errands alone such as visiting a doctor's office or shopping?AnswerDate of XopxvwdixzAnbtikYv74/10/2023 6:20 PM Katie Wells RN documented as of this encounter Mental Status * Because of a physical, mental, or emotional condition, do you have serious difficulty concentrating, remembering, or making decisions?AnswerEntry Date XmemjoFb98/10/2023 6:20 PM Katie Wells RN documented in this encounter Progress Notes * Ashli Basil Gonzalez, - 12/12/2024 9:00 AM EDT Images from the original note were not included. [facility] [place] [address] [id number] Headache Center - Follow up Visit Accompanied by: Self Primary Problem List: ACTIVE PROBLEM LIST Seizure-Like Activity (Hcc) Psychogenic Nonepileptic Seizure Intractable Chronic Migraine Without Aura and With Status Migrainosus Chronic Migraine Without Aura, With Intractable Migraine, So Stated, With Status Migrainosus Intractable Chronic Migraine Without Aura and Without Status Migrainosus Chief Complaint: migraine Impression and Plan from last visit 09/24/2024 (Griffin Lepe PA-C) IMPRESSION: Coni Nicholson is a 28 year [...] most severe in the last month of yepti cycle. - Recent ER visit for severe [...] to 300 mg at next infusion on 10/26/2023. Through multiple discussions I believe the previous reaction she experienced was correlate with the severe anxiety opposed to allergicreaction. Will continue to monitor closely with treatments. - Offer repeat nerve block or Toradol injection on 10/08/2023 as bridge therapy if needed. - Encourage [...] may see more benefit over 2-3 months. Interval Headache Hx: 12/12/2024: The patient is presenting for migraine follow-up. She is on Vyepti for migraine prevention which she states is the most effective preventative treatment that she has been on. Despite this, she experiences significant wearing off in the weeks prior to her next scheduled infusion. She just received an infusion yesterday and it was her first dose of 300 mg. To help with her migraine flare, she also received Zofran and Toradol injection. Zomig is somewhat helpful for her as a migraine rescue treatment. She is interested in exploring other rescue treatment options. Zavzpret was prescribed and approved in July, but patient states she never received this. Current treatment: Preventative: Vyepti 300 mg [id number] Abortive: Zavzpret 10 mg IN prn Zomig IN prn Phenergan Last office visit 09/24/2024: Headache 1 Location: holcephalic Quality/Description: throbbing and pressure Associated Symptoms: Photophobia: yes Phonophobia: yes Nausea: yes Vomiting: yes Other symptoms: osmophobia and vertigo Worse with activity: yes Number of migraine headache days/month: 10 Migraine headache severity: 11/29 Number of headache free days/month: 10 Duration [...] status since the last visit: worse Prior Treatments: Prior Therapies Duration of Use Dose Reason for Discontinuation Analgesic Ketorolac (Toradol) Anti-Convulsant Lamotrigine (Lamictal) Topiramate (Topamax, Trokendi XL, Qudexy) Anti-Depressant and Antipsychotic Amitriptyline (Elavil) [place] (Eskalith, Lithobid) Nortriptyline (Pamelor, Aventyl) Anti-Migraine Dihydroergotamine (DHE-45, Migranal) Naratriptan (Amerge) Sumatriptan (Imitrex, Sumavel) Zolmitriptan (Zomig) Blood Pressure Propranolol (Inderal) MABs Fremanezumab (Ajovy) Galcanezumab (Emgality) Botulinum Toxin Onabotulinum Toxin A (Botox) Muscle Relaxer Baclofen (Lioresal) ineffective Methocarbamol (Robaxin) ineffective Orphenadrine (Norflex, Norgesic forte) helpful Tizanidine (Zanaflex) ineffective Supplements Magnesium HEADACHE SCORES: 07/04/2024 09/23/2024 11/26/2024 Headache Questions ER visits since last office visit: 4 2 6 Hospital stays since last office visit 1 1 1 Limited ADLs in the last month: 13 14 15 Days missed from work or school in the last month: 14 7 Days headache pain free in the last month: 10 0 Days per month with ALL of the following symptoms - decreased productivity, light sensitivity and nausea: 14 15 Initial improvement of headache after botox injection at last visit: Not applicable, I did not havea botox injection at my last visit Not applicable, I did not have a botox injection at my last visit Not applicable, I did not have a botox injection at my last visit PRN medication usage in the last month: 25 Patient impression of improvement since last visit: Minimally improved Minimally improved Minimallyimproved 07/04/2024 09/23/2024 11/26/2024 HIT-6 HIT-6 70 (Severe impact) 74 (Severe impact) 72 (Severe impact) 07/04/2024 09/23/2024 11/26/2024 OMID - 2/7 SCORES OMID-2 Score 3 3 3 OMID-7 Score 8 8 9 07/04/2024 09/23/2024 11/26/2024 Migraine Specific QOL - Higher scores indicate better HRQL Role Function-Restrictive Transformed Score (range: 0-100) 37.14 11.43 20 Role Function-Preventive Transformed Score (range: 0-100) 20 20 40 Emotional Function Transformed Score (range: 0-100) 13.33 0 33.33 05/03/2024 07/04/2024 11/26/2024 PHQ-9 Score 9 9 10 ALLERGIES Allergen Reactions Dihydroergotamine Intolerance Chest tightness, numbness and tingling in bilateral extremities, increased anxiety Adhesive Tape-Silic* Rash Azithromycin Other: See Comments Keflex [Cephalexin] Rash Keppra [Levetiracet* Itching Propranolol Hives, Other: See Comments Migrianes Pyrilamine-Dextrome* Hives Reglan [Metoclopram* Intolerance Vortioxetine Hives Prochlorperazine Intolerance Studies to Review: MRI Report - Impression Only MRI BRAIN WO/W IVCON Exam End: 10/19/2021 4:18 PM (Final result) Impression: Unremarkable MR brain. CT Brain Report - Impression CT BRAIN WO IVCON Exam End: 11/24/2024 9:06 PM (Final result) CTA Head and/or Neck - Last 2 No resulted procedures found. New Health Issues: No New Social History: No New Family History: No PHYSICAL EXAMINATION: VS: BP 127/79 (BP Site: Left Arm, BP Position: Sitting, BP Cuff Size: Large Adult) Pulse 102 Wt128 kg (282 lb 3 oz) BMI 51.02 kg/m?? General: Alert and oriented. Answered questions in an appropriate manner. Made eye contact without apparent pain behavior. Musculoskeletal: No gross joint deformities. HEENT: Head is normocephalic and features were symmetric. Cranial Nerves: II: Pupils: symmetric Ill,lV,Vl: EOMI. VII: Face symmetric. Motor: Bulk: Normal for age and gender. No abnormal movements were appreciated. Reflexes: deep tendon reflexes + 2/4 throughout Gait: Unassisted, normal Normal stride length, base, and normal arm swing. HEADACHE EXAM: + tenderness to palpation during both active and passive ROM testing in the cervicogenic region + tenderness to palpation in bilateral occipital notches - No tenderness to palpation during TMJ testing Impression: Coni Nicholson is a 29 year old year old female, with a history of asthma, anxiety, depression, PCOS, occipital neuralgia, psychogenic nonepileptic seizures, and chronic migraine. She is presenting for chronic migraine follow- up. The patient is on Vyepti infusion for migraine prevention and she states this is the most effective preventative treatment to date. However, patient experiences significant wearing off and goes into migraine flares in the weeks prior to her next infusion. Her lastVyepti infusion was yesterday and it was her first dose of 200 mg. She received Toradol and Zofran to help with her migraine flare and would like to complete 3-day infusions to help with her flare. Will arrange non-DHE infusions today and tomorrow. She has found Zomig to be somewhat helpful but is interested in trying other rescue treatment options. Zavzpret was approved in July 2024 but patient states she never received this medication. Will reach out to pharmacy regarding this prescription and patient was given the phone number for the F home delivery for questions regarding delivery. She will also start head and neck physical therapy given significant tenderness to palpation in the bilateral cervicogenic region and bilateral occipital notches. All questions and concerns from patient were addressed at today's visit. She will follow-up in 3 months as needed Diagnosis: Chronic migraine Cervicalgia Plan: - Preventative:. Continue Vyepti 300 mg every 3 months - Abortive: Zomig IN as needed; Zavzpret IN as needed - Future Considerations: Occipital nerve blocks, Namenda, intranasal lidocaine, Relpax, Maxalt, Reyvow - Therapy/referrals: Head and neck PT Headache education was done. Discussed lifestyle modification including increased oral hydration, decreased caffeine, exercise, and stress management. Discussed treatment options including preventiveand acute medications, natural supplements, and infusion therapy. Discussed medication overuse headache and to limit use of acute treatments to no more than 2 days/week or 10 days/month. Discussed medication side effects, adverse reactions and drug interactions. Written educational materials and patient instructions outlining all of the above were given. Follow-up: 3 months as needed I spent 30 minutes in this visit, with more than 50% of the time devoted to patient counseling. My impression and recommendations were discussed at length with the patient (and family members, ifpresent). The patient and family (if present) voiced understanding to my recommendations. All questions were answered. The patient was provided with a detailed after visit summary highlighting my impression and recommendations (if seen in outpatient setting). Coni Nicholson has been previously approved for [...] XL, Qudexy) Anti-Depressant and Antipsychotic Amitriptyline (Elavil) significant weight gain [place] (Eskalith, Lithobid) Nortriptyline (Pamelor, Aventyl) Blood Pressure Propranolol (Inderal) MABs Erenumab (Aimovig) Fremanezumab (Ajovy) Galcanezumab (Emgality) Eptinezumab (Vyepti) Botulinum Toxin Onabotulinum Toxin A (Botox) Supplements Magnesium The following abortive medications have been tried but require high frequency use which can lead toMedication Overuse Headache: Analgesic Ketorolac (Toradol) Anti-Migraine Dihydroergotamine (DHE-45, Migranal) Chest tightness, numbness and tingling in bilateral extremities, increased anxiety Naratriptan (Amerge) did not help Sumatriptan (Imitrex, Sumavel) PO, IN did not help Zolmitriptan (Zomig) GEPANTS Ubrogepant (Ubrelvy) 3 months 100 mg did not provide adequate relief Rimegepant (Nurtec) 75 mg did nto help We will request a precertification for a Calcitonin Gene-Related Peptide Receptor Antagonist (GEPANT) Zavegepant for the rescue treatment of chronic migraine . This patient meets ICHD-3 criteria for treatment of migraine with a small molecule CGRP antagonist GEPANT. The FDA has approved GEPANTS forthe treatment of migraine. Specifically, the patient has 10 headaches per month, lasting 4 or more hours/day associated with photophobia, phonophobia, osmophobia, nausea, vomiting, vertigo, worse with movement for three or more months. Medication overuse headache has been ruled out.Patient will notuse with another GEPANT. The patient has tried and failed the following : The following preventative medications have been tried without benefit: Anti-Convulsant Lamotrigine (Lamictal) Topiramate (Topamax, Trokendi XL, Qudexy) Anti-Depressant and Antipsychotic Amitriptyline (Elavil) significant weight gain [place] (Eskalith, Lithobid) Nortriptyline (Pamelor, Aventyl) Blood Pressure Propranolol (Inderal) MABs Erenumab (Aimovig) Fremanezumab (Ajovy) Galcanezumab (Emgality) Eptinezumab (Vyepti) Botulinum Toxin Onabotulinum Toxin A (Botox) Supplements Magnesium The following abortive medications have been tried but require high frequency use which can lead toMedication Overuse Headache: Analgesic Ketorolac (Toradol) Anti-Migraine Dihydroergotamine (DHE-45, Migranal) Chest tightness, numbness and tingling in bilateral extremities, increased anxiety Naratriptan (Amerge) did not help Sumatriptan (Imitrex, Sumavel) PO, IN did not help Zolmitriptan (Zomig) GEPANTS Ubrogepant (Ubrelvy) 3 months 100 mg did not provide adequate relief Rimegepant (Nurtec) 75 mg did nto help Basil Cornelius DO Staff Neurologist [facility], [facility] [place] [address] [place] [address] documented in this encounter Plan of Treatment DateTypeDepartmentCare Team (Latest Contact Info)Oytsessvplw55/16/2026 9:30 AM ESTInfusion Center Neurology [address] [place] [address] vyeptiNameTypePriorityAssociated DiagnosesOrder ScheduleCONSULT TO PHYSICAL THERAPYReferralRoutine Intractable chronic migraine without aura and without status migrainosus 1 Occurrences starting 12/12/2024 until 12/12/2025documented as of this encounter Visit Diagnoses Diagnosis Intractable chronic migraine without aura and without status migrainosus- Primary Chronic migraine without aura, with intractable migraine, so stated, without mention of status migrainosus Cervicalgia Chronic migraine without aura, with intractable migraine, so stated, with status migrainosus Intractable chronic migraine without aura and with status migrainosus Chronic migraine without aura, with intractable migraine, so stated, with status migrainosus documented in this encounter Care Teams Team MemberRelationshipSpecialtyStart DateEnd Date Abdifatah Brady (Historical) PCP - General05/21/13documented as of this encounter
--- OUTSIDE RECORDS SUMMARY | 2024-12-12 09:00 | XMS_ITS | Encounter Summary ---
Author Organization [facility] Address [address] [place] [address] Care Team Providers Care General Partner Name Role Phone Abdifatah Brady (Historical) Primary Care Provide r Unavailable Source Comments In the event this information is protected by the Federal Confidentiality of Alcohol and Drug AbusePatient Records regulations: The Federal rules restrict any use of the information to criminally investigate or prosecute any alcohol or drug abuse patient.[facility] Reason for Visit * ReasonCommentsHeadache * Injectable (Routine) - AuthorizedSpecialtyDiagnoses / ProceduresReferred By ContactReferred To ContactNeurology / HEADACHE Diagnoses NON-DHE INFUSION Procedures DEHYDROERGOTAMINE INJECTION INFUSION HEADACHE [facility] [address] [address] [address] Phone: tel: Neurology [address] [place] [address] Phone: tel: fax: Referral IDStatusReasonStart DateExpiration DateVisits RequestedVisits [id number]/13/202512/[id number] Encounter Details DateTypeDepartmentCare Team (Latest Contact Info)Xjmtgphkxwz96/23/2025 10:00 AM [facility] Neurology [address] [place] [address] Chronic migraine without aura, with intractable migraine, so stated, with status migrainosus (Primary Dx); Intractable chronic migraine without aura and with status migrainosus Social History Tobacco UseTypesPacks/DayYears UsedDateSmoking Tobacco: NeverSmokeless Tobacco: NeverPHQ-2AnswerDate RecordedPHQ-2 kxorm781rea Deprivation IndexAnswer Date RecordedNational Score (1-100), lower number is lower tkay531006/23/2022State Score (1-10), lower number is lower uxph97806/23/2022ata from: https://www.neighborhoodatlas.[facility].edu/. Last address used for [address]/23/[address]22CommentsNoSex and Gender Information ValueDate RecordedSex Assigned at BirthNot on fileLegal OvpKvqutu19/01/2014 10:32 AM EDTGender IdentityNot on fileSexual OrientationNot on filedocumented as of this encounter Last Filed Vital Signs Vital SignReadingTime TakenCommentsBlood Lzbjgmiv052/7610 11:30 AM EDT Upwnn6299 11:30 AM EDTTemperature--Respiratory Rate--Oxygen Saturation-- Inhaled Oxygen Concentration--Weight--Height--Body Mass Index--documented in this encounter Functional Status * Are you deaf or do you have serious difficulty hearing?AnswerDate of AvklkynyuiSlpsbyJf58/10/2023 6:20 PM Katie Wells RN * Are you blind or do you have serious difficulty seeing, even when wearing glasses?AnswerDate of JgdsyyidztQirtylUz46/10/2023 6:20 PM Katie Wells RN * Do you have serious difficulty walking or climbing stairs?AnswerDate of TlfisoqhxlApjikyMi77/10/2023 6:20 PM Katie Wells RN * Do you have difficulty dressing or bathing?AnswerDate of AssessmentAuthorNo 04/01/2022 6:20 PM Katie Wells RN * Because of a physical, mental, or emotional condition, do you have difficulty doing errands alone such as visiting a doctor's office or shopping?AnswerDate of TsbdpofxldMfosrxOy78/10/2023 6:20 PM Katie Wells RN documented as of this encounter Mental Status * Because of a physical, mental, or emotional condition, do you have serious difficulty concentrating, remembering, or making decisions?AnswerEntry Date MonhvcOf08/10/2023 6:20 PM Katie Wells RN documented in this encounter Progress Notes * Joyce Canchola RN - 12/12/2024 9:33 AM EDT 0940 Patient admitted to infusion room from Dr. Cornelius's office visit, added on for headache infusionfor today and tomorrow. Headache 8/10 with severe nausea and severe dizziness. 1100 Patient sleeping with ice packs on head. 1144 Patient discharged to home, headache 6/10 with moderate nausea, phenergan po given. Patient with moderate dizziness, transferred to [facility] for discharge in wheelchair. documented in this encounter Plan of Treatment DateTypeDepartmentCare Team (Latest Contact Info)Rcxwbdcpwhp91/16/2026 9:30 AM [facility] Neurology [address] [place] [address] vyeptidocumented as of this encounter Visit Diagnoses Diagnosis Chronic migraine without aura, with intractable migraine, so stated, with status migrainosus- Primary Intractable chronic migraine without aura and with status migrainosus Chronic migraine without aura, with intractable migraine, so stated, with status migrainosus documented in this encounter Administered Medications Medication OrderMAR ActionAction DateDoseRateSite diphenhydrAMINE 25 mg injection (BENADRYL) 25 mg, INTRAVENOUS, NEEDED, 2 doses, Starting on Meg 12/12/24 at 0937, Until Meg 12/12/24 at 1348, Sedation/Dystonia/Akathisia/Anxiety 3rd line Indications:Chronic migraine without aura, with intractable migraine, so stated, with status migrainosus,Intractable chronic migraine without aura and with status wyqnbdvakkdRduhm10/23/2025 9:49 AM EDT25 mg keTORolac 30 mg injection (Toradol) 30 mg, INTRAVENOUS, ONCE, 1 dose, On Meg 12/12/24 at 1000, Ketorolac (Toradol) is indicated for theshort-term (up to 5 days) management of moderately severe acute pain. Continuation of ketorolac (Toradol) beyond 5 days increases the risk of developing serious adverse events. Please verify the duration of therapy for ketorolac (Toradol). Indications:Chronic migraine without aura, with intractable migraine, so stated, with status migrainosus,Intractable chronic migraine without aura and with status hyfkriortlaAmncm31/23/2025 9:49 AM EDT30 mg magnesium sulfate 1 g in D5W 100 mL 1 g, INTRAVENOUS, at 100-200 mL/hr, Administer over 0.5-1 Hours, ONCE, 1 dose, On Meg 12/12/24 at 1000, Magnesium sulfate iv bolus will be infused at a rate of 1 gram/hr The following nursing units may administer 2 g dose over 1 hour if necessary: ICUs/PACU/ED, Adult Hematology/Oncology, Labor and Delivery, Cardiac Stepdown, Headache Clinic If necessary, a magnesium sulfate bolus may be admi nistered greater than 2 g/hr for the following indications: Adult and Pediatric Asthma Exacerbations, Torsade de Pointes, Pediatric BMT and Hematology/Oncology, Eclampsia or Preeclampsia Indications:Chronic migraine without aura, with intractable migraine, so stated, with status migrainosus,Intractable chronic migraine without aura and with status migrainosusNew Bag/Syringe/Ggnxrd3312/12/2024 10:25 AM EDT1 g100 mL/hr methocarbamol iv infusion 1,000 mg in NaCl 0.9% 100 mL (ROBAXIN) 1,000 mg, INTRAVENOUS, Administer over 30 Minutes, ONCE, 1 dose, On Meg 12/12/24 at 1000, Administer IV while in recumbent position. Maintain position for at least 10-15 minutes following infusion. Indications:Chronic migraine without aura, with intractable migraine, so stated, with status migrainosus,Intractable chronic migraine without aura and with status migrainosusNew Bag/Syringe/Qpbhsk6612/12/2024 9:49 AM EDT1,000 mg NaCl 0.9% 500 mL iv bolus 500 mL, INTRAVENOUS, at 999 mL/hr, Administer over 0.5 Hours, ONCE, 1 dose, On Meg 12/12/24 at 1000 Indications:Chronic migraine without aura, with intractable migraine, so stated, with status migrainosus,Intractable chronic migraine without aura and with status migrainosusNew Bag/Syringe/Odxobw7612/12/2024 9:48 AM MVM544 mL999 mL/hr ondansetron (PF) 8 mg injection (ZOFRAN) 8 mg, INTRAVENOUS, EVERY 1 HOUR NEEDED, 2 doses, Starting on Meg 12/12/24 at 0937, Until Meg 12/12/24 at 1348, Nausea/Vomiting - First Line - Parenteral Indications:Chronic migraine without aura, with intractable migraine, so stated, with status migrainosus,Intractable chronic migraine without aura and with status lrrgzcgqyjeMixsv63/23/2025 9:49 AM EDT8 mg promethazine 25 mg tab(s) (PHENERGAN) 25 mg, ORAL, NEEDED, 1 dose, Starting on Meg 12/12/24 at 0937, Until Meg 12/12/24 at 1137, Nausea/Vomiting - Second Line - Enteral, previously tolerated Indications:Chronic migraine without aura, with intractable migraine, so stated, with status migrainosus,Intractable chronic migraine without aura and with status bdqradhqbkfTzlsr38/23/2025 11:37 AM EDT25 mgdocumented in this encounter Care Teams Team MemberRelationshipSpecialtyStart DateEnd Date Abdifatah Brady (Historical) PCP - General05/21/13documented as of this encounter
--- OUTSIDE RECORDS SUMMARY | 2024-12-13 07:30 | XMS_ITS | Encounter Summary ---
Author Organization [facility] Address [address] [place] [address] Care Team Providers Care Earth Sciences Professor Name Role Phone Abdifatah Brady (Historical) Primary Care Provide r Unavailable Source Comments In the event this information is protected by the Federal Confidentiality of Alcohol and Drug AbusePatient Records regulations: The Federal rules restrict any use of the information to criminally investigate or prosecute any alcohol or drug abuse patient.[facility] Reason for Visit * ReasonCommentsInfusionHeadache * Injectable (Routine) - AuthorizedSpecialtyDiagnoses / ProceduresReferred By ContactReferred To ContactNeurology / HEADACHE Diagnoses NON-DHE INFUSION Procedures DEHYDROERGOTAMINE INJECTION INFUSION HEADACHE [facility] [address] [address] Phone: tel:57 Neurology [address] [place] [address] Phone: tel: fax: Referral IDStatusReasonStart DateExpiration DateVisits RequestedVisits [id number] Encounter Details DateTypeDepartmentCare Team (Latest Contact Info)Icucqvqkavp47/24/2025 8:30 AM [facility] Neurology [address] [place] [address] Chronic migraine without aura, with intractable migraine, so stated, with status migrainosus (Primary Dx); Intractable chronic migraine without aura and with status migrainosus Social History Tobacco UseTypesPacks/DayYears UsedDateSmoking Tobacco: NeverSmokeless Tobacco: NeverPHQ-2AnswerDate RecordedPHQ-2 jkckp200rea Deprivation IndexAnswer Date RecordedNational Score (1-100), lower number is lower yoyr730806/23/2022State Score (1-10), lower number is lower teaa84606/23/2022ata from: https://www.neighborhoodatlas.medicine.[facility].edu/. Last address used for [address]/23/[address]22CommentsNoSex and Gender Information ValueDate RecordedSex Assigned at BirthNot on fileLegal OhxWwebcs90/01/2014 10:32 AM EDTGender IdentityNot on fileSexual OrientationNot on filedocumented as of this encounter Last Filed Vital Signs Vital SignReadingTime TakenCommentsBlood Acotnoih164/5910 10:29 AM EDT Wtwdi2926 10:29 AM EDTTemperature--Respiratory Rate--Oxygen Saturation-- Inhaled Oxygen Concentration--Weight--Height--Body Mass Index--documented in this encounter Functional Status * Are you deaf or do you have serious difficulty hearing?AnswerDate of HbqocnvbevHabncxYe39/10/2023 6:20 PM Katie Wells RN * Are you blind or do you have serious difficulty seeing, even when wearing glasses?AnswerDate of TfojxrzluqJpsqscLt78/10/2023 6:20 PM Katie Wells, PRATIBHA * Do you have serious difficulty walking or climbing stairs?AnswerDate of PiekwbvcqgUvmnaxKl59/10/2023 6:20 PM Katie Wells RN * Do you have difficulty dressing or bathing?AnswerDate of AssessmentAuthorNo 04/01/2022 6:20 PM Katie Wells RN * Because of a physical, mental, or emotional condition, do you have difficulty doing errands alone such as visiting a doctor's office or shopping?AnswerDate of OggcyiushrJysbtsWh16/10/2023 6:20 PM Katie Wells RN documented as of this encounter Mental Status * Because of a physical, mental, or emotional condition, do you have serious difficulty concentrating, remembering, or making decisions?AnswerEntry Date UsvvemRe87/10/2023 6:20 PM Katie Wells RN documented in this encounter Progress Notes * Coretta Quintanilla RN - 12/13/2024 9:06 AM EDT 0832: Patient in for day 2 of IV infusions. Patient rated headache 8/10. Patient stated severe nausea and severe dizziness. Patient educated on medications to be administered. Patient verbalized understanding and agreed to proceed with infusions. 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 She would like PRN zofran fornausea and PRN benadryl for sedation. 1036: Pts infusions complete. Pt tolerated infusion well. Pt rated headache 4/10. Pt stated severe nausea and moderate dizziness. Pt preferred second line PRN phenergan for nausea over zofran. Phenergan administered. Pt discharged from treatment room via wheelchair to her in the lobby. documented in this encounter Plan of Treatment DateTypeDepartmentCare Team (Latest Contact Info)Svisstwdfly94/16/2026 9:30 AM [facility] Neurology [address] [place] [address] vyeptidocumented as of this encounter Visit Diagnoses [...] mg, INTRAVENOUS, NEEDED, 2 doses, Starting on Mon12/13/24 at 0828, Until Mon12/13/24 at 1237, Sedation/Dystonia/Akathisia/Anxiety 3rd line Indications:Chronic migraine without aura, with intractable migraine, so stated, with status migrainosus,Intractable chronic migraine without aura and with status fficwhamobrZqcwv39/24/2025 8:50 AM EDT25 mg keTORolac 30 mg injection (Toradol) 30 mg, INTRAVENOUS, ONCE, 1 dose, On Mon12/13/24 at 0830, Ketorolac (Toradol) is indicated for theshort-term (up to 5 days) management of moderately severe acute pain. Continuation of ketorolac (Toradol) beyond 5 days increases the risk of developing serious adverse events. Please verify the duration of therapy for ketorolac (Toradol). Indications:Chronic migraine without aura, with intractable migraine, so stated, with status migrainosus,Intractable chronic migraine without aura and with status kxrnxzbmobfBvzez12/24/2025 8:53 AM EDT30 mg magnesium sulfate 1 g in D5W 100 mL 1 g, INTRAVENOUS, at 100-200 mL/hr, Administer over 0.5-1 Hours, ONCE, 1 dose, On Mon12/13/24 at 0830, Magnesium sulfate iv bolus will [...] migraine without aura and with status migrainosusNew Bag/Syringe/Mhbgqq0212/13/2024 9:29 AM EDT1 g100 mL/hr methocarbamol iv infusion 1,000 mg in NaCl 0.9% 100 mL (ROBAXIN) 1,000 mg, INTRAVENOUS, Administer over 30 Minutes, ONCE, 1 dose, On Mon12/13/24 at 0830, Administer IV while in recumbent position. Maintain position for at least 10-15 minutes following infusion. Indications:Chronic migraine without aura, with intractable migraine, so stated, with status migrainosus,Intractable chronic migraine without aura and with status migrainosusNew Bag/Syringe/Iyjyoy2512/13/2024 8:57 AM EDT1,000 mg NaCl 0.9% 500 mL iv bolus 500 mL, INTRAVENOUS, at 999 mL/hr, Administer over 0.5 Hours, ONCE, 1 dose, On Mon12/13/24 at 0830 Indications:Chronic migraine without aura, with intractable migraine, so stated, with status migrainosus,Intractable chronic migraine without aura and with status migrainosusNew Bag/Syringe/Dbwmyo6412/13/2024 8:51 AM BAO882 mL999 mL/hr ondansetron (PF) 8 mg injection (ZOFRAN) 8 mg, INTRAVENOUS, EVERY 1 HOUR NEEDED, 2 doses, Starting on Mon12/13/24 at 0828, Until Mon12/13/24 at 1237, Nausea/Vomiting - First Line - Parenteral Indications:Chronic migraine without aura, with intractable migraine, so stated, with status migrainosus,Intractable chronic migraine without aura and with status moirfcyjvzjZhzib09/24/2025 8:55 AM EDT8 mg promethazine 25 mg tab(s) (PHENERGAN) 25 mg, ORAL, NEEDED, 1 dose, Starting on Mon12/13/24 at 0828, Until Mon12/13/24 at 1028, Nausea/Vomiting - Second Line - Enteral, previously tolerated Indications:Chronic migraine without aura, with intractable migraine, so stated, with status migrainosus,Intractable chronic migraine without aura and with status zbmbsezwjiqMajum29/24/2025 10:28 AM EDT25 mgdocumented in this encounter Care Teams Team MemberRelationshipSpecialtyStart DateEnd Date Abdifatah Brady (Historical) PCP - General05/21/13documented as of this encounter
--- OUTSIDE RECORDS SUMMARY | 2024-12-13 12:30 | XMS_ITS | Encounter Summary ---
Author Organization [facility] Address [address] [place] [address] Care Team Providers Care Bellows Filler Name Role Phone Abdifatah Brady (Historical) Primary Care Provide r Unavailable Source Comments In the event this information is protected by the Federal Confidentiality of Alcohol and Drug AbusePatient Records regulations: The Federal rules restrict any use of the information to criminally investigate or prosecute any alcohol or drug abuse patient.[facility] Encounter Details DateTypeDepartmentCare Team (Latest Contact Info)Fuyybsjrbkz74/24/2025 1:30 PM EDTOffice Visit Neurology [address] [id number] Griffin Lepe PA-C [address] [place] [address] Intractable chronic migraine without aura and with status migrainosus (Primary Dx) Social History Tobacco UseTypesPacks/DayYears UsedDateSmoking Tobacco: NeverSmokeless Tobacco: NeverPHQ-2AnswerDate RecordedPHQ-2 vtbly447/07/2025Area Deprivation IndexAnswer Date RecordedNational Score (1-100), lower number is lower mlbz131306/23/2022State Score (1-10), lower number is lower gwce8963Data from: https://www.neighborhoodatlas.[facility]/. Last address used for [address]/23/[address]22CommentsNoSex and Gender Information ValueDate RecordedSex Assigned at BirthNot on fileLegal HcyWzygbg05/01/2014 10:32 AM EDTGender IdentityNot on fileSexual OrientationNot on filedocumented as of this encounter Functional Status * Are you deaf or do you have serious difficulty hearing?AnswerDate of CdwksajqbvSdodwuVh96/10/2023 6:20 PM Katie Wells RN * Are you blind or do you have serious difficulty seeing, even when wearing glasses?AnswerDate of KaxrtrhrdsTkfbzwVk53/10/2023 6:20 PM Katie Wells RN * Do you have serious difficulty walking or climbing stairs?AnswerDate of VtnqidqywxHpmkmvOk86/10/2023 6:20 PM Katie Wells RN * Do you have difficulty dressing or bathing?AnswerDate of AssessmentAuthorNo 04/01/2022 6:20 PM Katie Wells RN * Because of a physical, mental, or emotional condition, do you have difficulty doing errands alone such as visiting a doctor's office or shopping?AnswerDate of WruxddjzqaSxfauxIb10/10/2023 6:20 PM Katie Wells RN documented as of this encounter Mental Status * Because of a physical, mental, or emotional condition, do you have serious difficulty concentrating, remembering, or making decisions?AnswerEntry Date SypdwqRw20/10/2023 6:20 PM Katie Wells RN documented in this encounter Patient Instructions * Patient Instructions* Griffin Lepe PA-C - 12/13/2024 10:47 AM EDT - You have completed all three of your infusion sessions (Monday, Monday, and today). - Attend the sleep study as scheduled to evaluate your sleep quality, snoring, and possible sleep apnea, which may help improve your headaches. - Your next follow-up appointment with Dr. Cornelius is set for February; we will confirm the exact date and time soon. - If your headaches worsen or you have any concerns before your February visit, please contact the office to arrange an earlier appointment. documented in this encounter Progress Notes * Griffin Lepe PA-C - 12/13/2024 1:30 PM EDT Images from the original note were not included. [facility] Infusion [facility]INA Note Subjective: Coni Nicholson is a 29 year old year old female presenting for day 3 of infusions. Coni reports improvement in her headache pain. She has completed 3 infusion treatments: Monday,yesterday, and today. Coni reports snoring and during sleep, and believes her headaches may be related to poor sleep. She has a sleep study scheduled. Therapy Plan: zofran phenergan IV Fluids toradol magnesium robaxin New health conditions since orders were placed: No Cardiovascular risk factors: None Triptan dose in the last 24 hours: No Last muscle relaxer dose: No Last NSAID dose: No Response to infusions: Patient tolerating infusion without side effects. and Headache improving. Preventative: Vyepti 100 mg every 3 months, Lamictal 200mg daily Rescue: Zavprat, zomig nasal spray, phenergan Labs: Latest Ref [...] Lymph 1.00 - 4.00 k/uL 0.84 Abs Roane <0.87 k/uL 0.06 Abs Eosin <0.46 k/uL [...] Intolerance Vortioxetine Hives Prochlorperazine Intolerance Current Medications: scopolamine (TRANSDERM-SCOP) patch 1.5 mg/72 hr (delivers 1 mg over 3 days)^apply 1 patch behind the EAR at least FOUR HOURS prior to exposure and every 3 (THREE) days NEEDED^Disp: 4 patch^Rfl: 2 carBAMazepine XR (TEGRETOL XR) 100 mg 12 hr tablet^Take 100 mg by mouth two times a day.^Disp: ^Rfl: (Patient taking differently: Take 200 mg by mouth two times a day.) desvenlafaxine ER (PRISTIQ) 50 mg 24 hr tablet^Take 50 mg by mouth once daily.^Disp: ^Rfl: (Patienttaking differently: Take 100 mg by mouth once daily.) estradiol (ESTRACE) 1 mg tablet^Take 1 mg by mouth every morning.^Disp: ^Rfl: progesterone micronized (PROMETRIUM) 100 mg capsule^Take 100 mg by mouth once daily.^Disp: ^Rfl: zavegepant (ZAVZPRET) 10 mg/actuation nasal spray^Use one [...] ZOLMitriptan (ZOMIG) 5 mg nasal spray^Use 1 Makoti in the nose as needed at onset of migraine headache. If symptoms persist or return, may repeat dose in other nostril after 2 hours. Maximum of 2 sprays per 24 hours^Disp: 12 each^Rfl: 5 albuterol sulfate 90 mcg/actuation breath activated powder inhaler^Inhale 2 Puffs as instructed every 6 hours as needed for wheezing/shortness of breath.^Disp: ^Rfl: diazePAM (VALIUM) 10 mg tablet^^Disp: ^Rfl: [...] normal in rate, volume and articulation, and clear,coherent, and relevant. Short and fdc memory, cognition and general fund of knowledge are good. Attention span and concentration are excellent. Cranial Nerves: VII-face is symmetric without evidence of weakness. VIII-hearing intact. Assessment: (G43.711) Intractable chronic migraine without aura and with status migrainosus (primary encounter diagnosis) Coni Nicholson is a 29 year old year old female, with a history of asthma, anxiety, depression, PCOS, occipital neuralgia, psychogenic nonepileptic seizures, and chronic migraine following up today for day 3 of infusions. 1. Intractable chronic migraine without aura and with status migrainosus (G43.711) - Completed third day of infusion therapy; pain improved to 6/10. - Discussed potential impact of sleep disorders on headache frequency and severity. - Encouraged completion of upcoming sleep study to evaluate for possible sleep apnea or other sleepdisturbances that may be contributing to headaches. - Resume home medications tomorrow - Follow-up with Dr. Cornelius scheduled for February; advised to reach out sooner if headaches worsen. Level of service: Est level 1 (0-9 min): Time spent 5 min on the day of service, which included preparing to see the patient, txsq-eh-yrnz patient care, completing clinical documentation, obtaining and/or reviewing separately obtained history, performing a medically appropriate examination, and counseling and educating the patient/family/caregiver. Griffin Lepe PA-C Headache Section [facility] December 12, 2024 documented in this encounter Plan of Treatment DateTypeDepartmentCare Team (Latest Contact Info)Izzjcuqyxzb91/16/2026 9:30 AM [facility] Neurology [address] [id number] vyeptidocumented as of this encounter Visit Diagnoses Diagnosis Intractable chronic migraine without aura and with status migrainosus- Primary Chronic migraine without aura, with intractable migraine, so stated, with status migrainosus documented in this encounter Care Teams Team MemberRelationshipSpecialtyStart DateEnd Date Abdifatah Brady (Historical) PCP - General05/21/13documented as of this encounter
--- OUTSIDE RECORDS SUMMARY | 2024-12-17 08:30 | XMS_ITS | Encounter Summary ---
Author Organization [facility] tem Address [id number] [address] [place] [address] Care Team Providers Care Lead Systems Developer Name Role Phone Corine Gold MD Primary Care Provider [phone] Reason for Referral * Medication Prior Authorization - AuthorizedSpecialtyDiagnoses / Procedures Referred By ContactReferred To Contact Diagnoses Moderate persistent asthma without complication Mariah Peña DO [address] [address] Phone: tel: fax: Referral IDStatusReasonStart DateExpiration DateVisits RequestedVisits [id number]/28/202510/27/202611 * Consultation (Routine) - Pending ReviewSpecialtyDiagnoses / ProceduresReferred By ContactReferred To ContactGastroenterology Diagnoses Gastroesophageal reflux disease without esophagitis Mariah Peña DO [address] [address] Phone: tel: fax: [facility] Department of [address] [phone] Phone: tel: fax: Referral IDStatusReasonStart DateExpiration DateVisits RequestedVisits [id number] Review Specialty Services Required Reason for Visit * ReasonCommentsFollow-upCoughReports d/t allergiesnonproductiveWheezingReports morning, night and through the dayShortness of BreathReports with exertion/activity Encounter Details DateTypeDepartmentCare Team (Latest Contact Info)Muhnwundalb73/28/2025 9:30 AM EDTOffice Visit [facility] [address] [phone] Mariah Peña DO [address] [address] Moderate persistent asthma without complication (Primary Dx); Gastroesophageal reflux disease without esophagitis; Environmental allergies Social History Tobacco UseTypesPacks/DayYears UsedDateSmoking Tobacco: NeverSmokeless Tobacco: Never Tobacco Cessation:Counseling Given: Not Answered Alcohol UseStandard Drinks/WeekCommentsNot Currently0 (1 standard drink = 0.6 oz pure alcohol)socialRaising IT UtilitiesAnswerDate RecordedIn the past 12 months has the [employer] gas, oil, or water [employer] threatened to shut off services in your [...] care, and heating?Not hard at all04/08/2024PHQ-2AnswerDate RecordedTotal Jmgtd294PRAPARE - TransportationAnswerDate RecordedIn the past 12 months, [...] a part of a household?No5ChildcareAnswerDate RecordedChildcareUnknown 08/01/2018EmploymentAnswerDate VliknhopGwcwpetyvdTgbyjgu09/12/2019Hunger ScreeningAnswerDate RecordedWithin the past 12 months we worried whether our food would run out before we got money to buy more.Never True12/10/2024Within the past 12 months the food we bought just didn't last and we didn't have money to get more.Never True12/10/2024Purpose - LifeAnswerDate RecordedPurpose and direction in fuhePvaheho96/12/2021CommentsNoSex and Gender Information ValueDate RecordedSex Assigned at BirthNot on fileLegal IwvThmsoo02/06/2015 11:52 AM EDTGender IdentityNot on fileSexual OrientationNot on filedocumented as of this encounter Last Filed Vital Signs Vital SignReadingTime TakenCommentsBlood Oozkzhbf928/7612/17/2024 9:30 AM EDT Tksjg707412/17/2024 9:30 AM EDTTemperature--Respiratory Rate--Oxygen Iruremdcci39% 12/17/2024 9:30 AM EDTInhaled Oxygen Concentration--Xexvgx141 kg (277 lb 12.5 oz)12/17/2024 9:30 AM EFVWsztgg005.9 cm (5' 1 )12/17/2024 9:30 AM EDTBody Mass Index52.4912/17/2024 9:30 AM EDTdocumented in this encounter Progress Notes * Mariah Peña, DO - 12/17/2024 9:30 AM EDT Images from the original note were not included. [facility] Progress Note Patient - Coni Nicholson Age - 29 y.o. - 1995 N - [id number] [facility] # - [id number] ASSESSMENT Poorly controlled eosinophilic severe persistent asthma [...] Robert today Follow-up in 3 months at [place] office OSMANI Sandie presents for follow-up of [...] she has filled any maintenance inhaler with [employer] and only see prescriptions for albuterol aerosols solution that are being filled on med review. She does report consistent use and that she has been getting regular fills from [facility]. She does also note that her youngest [...] seen. Dr. Mariah Peña DO. [facility] Office: [phone] documented in this encounter Plan of Treatment DateTypeDepartmentCare Team (Latest Contact Info)Bsuvfxcermb23/18/2025 3:15 PM ESTOffice Visit [facility] [address] [place] [phone] Corine Gold MD [address] [place], [place] [id number] 01/30/2025 8:00 PM ESTClinical Support [facility] - Sleep Disorders [address] [place] [phone] Corine Gold MD [address] [place], [place] [phone] 02/27/2025 8:00 PM ESTClinical Support [facility] Sleep Disorders [address] [place] [phone] Corine Gold MD [address] [place], [place] [phone] 03/25/2025 9:45 AM ESTOffice Visit [facility] [address] [phone] Mariah Peña DO [address] [address] NameTypePriorityAssociated DiagnosesOrder ScheduleProMedica Physicians Digestive [place], OHOutpatient ReferralRoutine Gastroesophageal reflux disease without esophagitis 1 Occurrences starting 12/17/2024 until 12/17/2025documented as of this encounter Goals GoalPatient Goal TypeAssociated ProblemsRecent ProgressPatient-Stated?Author home Tamiko Thompson, PRATIBHA Note: Evaluation of progress towards goal: Patient stated goal is to return home with [facility] for assistance with wound care documented as [...] Date Corine Gold MD [address], [facility] [place] [address] PCP - GeneralInternal Medicine03/25/24documented as of this encounter
--- OUTSIDE RECORDS SUMMARY | 2024-12-20 09:00 | XMS_ITS | Encounter Summary ---
Author Organization [facility] tem Address [id number] [address] [place] [address] Care Team Providers Care Trestle Builder Name Role Phone Corine Gold MD Primary Care Provider [phone] Reason for Referral * Medication Prior Authorization - ClosedSpecialtyDiagnoses / ProceduresReferred By ContactReferred To Contact Diagnoses Moderate persistent asthma without complication Saba Carter APRN-CNP [address] [facility] [place] [address] Phone: tel: fax: Referral IDStatusReasonStart DateExpiration DateVisits RequestedVisits [id number] Reason for Visit * ReasonCommentsEye ProblemBurning and watering, pain with touch. Encounter Details DateTypeDepartmentCare Team (Latest Contact Info)Mnrphhuiwxc92/31/2025 10:00 AM EDTOffice Visit [facility] [address] [place] [address] [place] [address] Saba Carter APRN-CNP [address] [place] [address] Moderate persistent asthma without complication (Primary Dx); Watery eyes; Seasonal allergic rhinitis, unspecified trigger Social History Tobacco UseTypesPacks/DayYears UsedDateSmoking Tobacco: NeverSmokeless Tobacco: NeverAlcohol UseStandard Drinks/WeekCommentsNot Currently0 (1 standard drink = 0.6 oz pure alcohol)[facility] UtilitiesAnswerDate RecordedIn the past 12 months has [...] care, and heating?Not hard at all04/08/2024PHQ-2AnswerDate RecordedTotal Xwwbb068PRAPARE - TransportationAnswerDate RecordedIn the past 12 months, [...] a part of a household?No04/08/2024hildcareAnswerDate RecordedChildcareUnknown 08/01/2018EmploymentAnswerDate MqzkqynkEgwybftappZrrskys18/12/2019Hunger ScreeningAnswerDate RecordedWithin the past 12 months we worried whether our food would run out before we got money to buy more.Never True12/20/2024Within the past 12 months the food we bought just didn't last and we didn't have money to get more.Never True12/20/2024Purpose - LifeAnswerDate RecordedPurpose and direction in dyhyRgvopbh84/12/2021CommentsNoSex and Gender Information ValueDate RecordedSex Assigned at BirthNot on fileLegal EhfRpafaw59/06/2015 11:52 AM EDTGender IdentityNot on fileSexual OrientationNot on filedocumented as of this encounter Last Filed Vital Signs Vital SignReadingTime TakenCommentsBlood Ygfpogwe251/7812/20/2024 10:01 AM EDT Acwjd20586/31/2025 10:01 AM QLWJsipheufqdn25.6 ??C (97.9 ??F)12/20/2024 10:01 AM EDTRespiratory Rate--Oxygen Jzknqjtgxu94%12/20/2024 10:01 AM EDTInhaled Oxygen Concentration--Yvxpim595.5 kg (283 lb 6.4 oz)12/20/2024 10:01 AM XQEYffgqn325.9 cm (5' 0.98 )12/20/2024 10:01 AM EDTBody Mass Index53.5812/20/2024 10:01 AM EDT documented in this encounter Patient Instructions * Attachments The following attachments cannot be sent through Care Everywhere. * Olopatadine (Ophthalmic) (Lithuanian) documented in this encounter Progress Notes * Saba Carter, PSYCHIATRIC ASSISTANT-FUNERAL CAR CHAUFFEUR - 12/20/2024 10:00 AM EDT Subjective Patient [...] 03/25/2024 Prolonged emergence from general anesthesia Seizure ([facility]) Last one 03-11-2024 Past Surgical History Past Surgical History: Procedure Laterality Date APPENDECTOMY SECTION [facility] LYSIS OF ADHESIONS N/A 03/28/2024 Performed by Mundo Blackman MD at [facility] KADI5 LYSIS OF ADHESIONS N/A 03/28/2024 Performed by Jesse Sultana MD at [facility] DV5 SALPINGO OOPHORECTOMY/FROZEN SECTION Bilateral 03/28/2024 Performed by Mundo Blackman MD at [facility] DILATION AND CURETTAGE OF UTERUS PARTIAL [...] Activity: Insufficiently Active (01/23/2024) Received from [facility] Exercise Vital Sign On average, how many days per week do you engage in moderate to strenuous exercise (like a brisk walk)?: 7 days On average, how many minutes do you engage in exercise at this level?: 10 min Stress: Stress Concern Present (01/23/2024) Received from [facility] [place] of Occupational Health - Occupational Stress Questionnaire Feeling of Stress : Rather much Social Connections: Socially Integrated (01/23/2024) Received from [facility] Social Connection and Isolation Panel In a typical week, how many times do you talk on the phone with family, friends, or neighbors?: More than three times a week How often do you get together with friends or relatives?: Twice a week How often do you attend jew or latter-day services?: More than 4 times per year Do you belong to any clubs or organizations such as jew groups, unions, fraternal or athletic groups, or [...] [Azithromycin] Hives Buspirone Hives Compazine [Prochlorperazine] Anxiety Eptinezumab-[facility] Itching and Rash Patient described [...] TWO PUFFS BY MOUTH EVERY 4 HOURS MVQTAK07 g 0 baclofen (LIORESAL) 10 mg tablet [...] NOSTRIL EVERY OTHER DAY 16 g 2 vlpdtegdguh-qtgtozsez-vrkcdfxj (TRELEGY ELLIPTA) 200-62.5-25 mcg blister with device [...] Plan of Treatment DateTypeDepartmentCare Team (Latest Contact Info)Vmpqolgmmzg92/18/2025 3:15 PM ESTOffice Visit [facility] [address] [place] [phone] Corine Gold MD [address] [place] [phone] 01/30/2025 8:00 PM ESTClinical Support [facility] [address] [place] [phone] Corine Gold MD [address] [place] [address] 02/27/2025 8:00 PM ESTClinical Support [facility] [address] [facility] [place] [phone] Corine Gold MD [address] [facility] [place], [place] [phone] 03/25/2025 9:45 AM ESTOffice Visit [facility] [address] [address] Mariah Peña, [address] [address] documented as of this encounter Goals GoalPatient Goal TypeAssociated ProblemsRecent ProgressPatient-Stated?Author home Tamiko Thompson RN Note: Evaluation of progress towards goal: Patient stated goal is to return home with [facility] for assistance with wound care documented as of this encounter Visit Diagnoses Diagnosis Moderate persistent asthma without complication- Primary Watery eyes Epiphora, unspecified as to cause Seasonal allergic rhinitis, unspecified trigger documented in this encounter Additional Health Concerns AssessmentNoted TimePHQ-9 Depression Total Score: 10:01 AM EDTA Body Mass Index follow-up plan has been documented for the lnkfjwo4312/20/2024 1:20 PM EDTdocumented as of this encounter Care Teams Team MemberRelationshipSpecialtyStart DateEnd Date Corine Gold MD [address] [facility] [place], [place] [phone] PCP - GeneralInternal Medicine03/25/24documented as of this encounter
[2024-12-26 09:48] VITALS: BP 119/80; PULSE 93; TEMP 36.8; O2SAT 96; BMI 52.3
--- OUTSIDE RECORDS SUMMARY | 2024-12-26 09:49 | XMS_ITS | Encounter Summary ---
Author Organization [facility] tem Address [facility] [address] [place] [address] Care Team Providers Care Shank Cutter Name Role Phone Corine Gold MD Primary Care Provider [phone] Encounter Details DateTypeDepartmentCare Team (Latest Contact Info)Uxljyvirgvf93/28/2025Travel Social History Tobacco UseTypesPacks/DayYears UsedDateSmoking Tobacco: NeverSmokeless Tobacco: NeverAlcohol UseStandard Drinks/WeekCommentsNot Currently0 (1 standard drink = 0.6 oz pure alcohol)[facility] UtilitiesAnswerDate RecordedIn the past 12 months has [...] care, and heating?Not hard at all04/08/2024PHQ-2AnswerDate RecordedTotal Ctyju018PRAPARE - TransportationAnswerDate RecordedIn the past 12 months, [...] a part of a household?No5ChildcareAnswerDate RecordedChildcareUnknown 08/01/2018EmploymentAnswerDate SfprypqtSxktyhpjgwLkprrbz86/12/2019Hunger ScreeningAnswerDate RecordedWithin the past 12 months we worried whether our food would run out before we got money to buy more.Never True12/10/2024Within the past 12 months the food we bought just didn't last and we didn't have money to get more.Never True12/10/2024Purpose - LifeAnswerDate RecordedPurpose and direction in rmnrUikizcw17/12/2021CommentsNoSex and Gender Information ValueDate RecordedSex Assigned at BirthNot on fileLegal LqlWtayli96/06/2015 11:52 AM EDTGender IdentityNot on fileSexual OrientationNot on filedocumented as of this encounter Plan of Treatment DateTypeDepartmentCare Team (Latest Contact Info)Pirvwcwnkmm22/18/2025 3:15 PM ESTOffice Visit [facility] [address] [place] [phone] Corine Gold MD [address] [place] [address] 01/30/2025 8:00 PM ESTClinical Support [facility] [address] [place] [phone] Corine Gold MD [address] [place] [phone] 02/27/2025 8:00 PM ESTClinical Support [facility] [address] [place] [phone] Corine Gold MD [address] [facility] [place], [place] [phone] 03/25/2025 9:45 AM ESTOffice Visit [facility] [address] [phone] Mariah Peña DO [address] [address] documented as of this encounter Goals GoalPatient Goal TypeAssociated ProblemsRecent ProgressPatient-Stated?Author home Tamiko Thompson RN Note: Evaluation of progress towards goal: Patient stated goal is to return home with [facility] for assistance with wound care documented as of this encounter Visit Diagnoses Not on filedocumented in this encounter Additional Health Concerns AssessmentNoted TimePHQ-9 Depression Total Score: 2:59 PM EDT documented as of this encounter Care Teams Team MemberRelationshipSpecialtyStart DateEnd Date Corine Gold MD [address] [facility] [place] [address] PCP - GeneralInternal Medicine03/25/24documented as of this encounter
--- OUTSIDE RECORDS SUMMARY | 2024-12-26 09:49 | XMS_ITS | Encounter Summary ---
Author Organization [facility] tem Address [id number] [address] [place] [address] Care Team Providers Care Etched Circuit Processor Name Role Phone Corine Gold MD Primary Care Provider [phone] Encounter Details DateTypeDepartmentCare Team (Latest Contact Info)Mpjzehrpixz49/30/2025Orders Only [facility] [address] [address] Mariah Peña DO [address] [address] Moderate persistent asthma, unspecified whether complicated Social History Tobacco UseTypesPacks/DayYears UsedDateSmoking Tobacco: NeverSmokeless Tobacco: NeverAlcohol UseStandard Drinks/WeekCommentsNot Currently0 (1 standard drink = 0.6 oz pure alcohol)[facility] UtilitiesAnswerDate RecordedIn the past 12 months has the [employer], gas, oil, or water [employer] threatened to shut off services in your [...] care, and heating?Not hard at all04/08/2024PHQ-2AnswerDate RecordedTotal Dzmaj668PRAPARE - TransportationAnswerDate RecordedIn the past 12 months, [...] a part of a household?No04/08/2024hildcareAnswerDate RecordedChildcareUnknown 08/01/2018EmploymentAnswerDate LkwvzfmmBcjillbauoWwacjbo57/12/2019Hunger ScreeningAnswerDate RecordedWithin the past 12 months we worried whether our food would run out before we got money to buy more.Never True12/20/2024Within the past 12 months the food we bought just didn't last and we didn't have money to get more.Never True12/20/2024Purpose - LifeAnswerDate RecordedPurpose and direction in wzugInpwnxc61/12/2021CommentsNoSex and Gender Information ValueDate RecordedSex Assigned at BirthNot on fileLegal PraZsnivs29/06/2015 11:52 AM EDTGender IdentityNot on fileSexual OrientationNot on filedocumented as of this encounter Plan of Treatment DateTypeDepartmentCare Team (Latest Contact Info)Ctzvuyubtzu65/18/2025 3:15 PM ESTOffice Visit [facility] [address] [place] [phone] Corine Gold MD [address] [place] [address] 01/30/2025 8:00 PM ESTClinical Support [facility] [address] [facility] [place] [phone] Corine Gold MD [address] [place] [address] 02/27/2025 8:00 PM ESTClinical Support [facility] [address] [facility] [place] [address] Corine Gold MD [address] [place], [place] [phone] 03/25/2025 9:45 AM ESTOffice Visit [facility] [address] [phone] Mariah Peña, [address] [address] documented as of this encounter Goals GoalPatient Goal TypeAssociated ProblemsRecent ProgressPatient-Stated?Author home Tamiko Thompson RN Note: Evaluation of progress towards goal: Patient stated goal is to return home with [facility] for assistance with wound care documented as of this encounter Visit Diagnoses Diagnosis Moderate persistent asthma, unspecified whether complicated documented in this encounter Additional Health Concerns AssessmentNoted TimePHQ-9 Depression Total Score: 2:59 PM EDT documented as of this encounter Care Teams Team MemberRelationshipSpecialtyStart DateEnd Date Corine Gold MD [address] [place] [address] PCP - GeneralInternal Medicine03/25/24documented as of this encounter
--- OUTSIDE RECORDS SUMMARY | 2024-12-26 09:49 | XMS_ITS | Encounter Summary ---
Author Organization [facility] Address [address] [place] [address] Care Team Providers Care Physician Relations Representative Name Role Phone Lamont Blair MD Primary Care Provider [phone] Unallocated, [facility] Provider Primary Care Provi mahsa Lamont Blair MD Unavailable Encounter Details DateTypeDepartmentCare Team (Latest Contact Info)Jojfkyerqph20/30/2024Clinisync Result Encounter [facility] External Department Unsolicited Provider, Generic External Data Social History Tobacco UseTypesPacks/DayYears UsedDateSmoking Tobacco: NeverPassive Smoke Exposure: NeverSmokeless Tobacco: NeverAlcohol UseStandard Drinks/WeekComments Never0 (1 standard drink = 0.6 oz pure alcohol)Caffeine intake: >4 cups per day B1300 Health LiteracyAnswerDate RecordedHow often do you need to have someone help you when you read instructions, pamphlets, or other written material from your doctor or pharmacy?Never01/23/2024Social Connection and Isolation Panel AnswerDate RecordedIn a typical week, how many times do you talk on the phone with family, friends, or neighbors?More than three times a week01/23/2024How often do you get together with friends or relatives?Twice a week01/23/2024How often do you attend bahai or episcopal services?More than 4 times per year 01/23/2024o you belong to any clubs or organizations such as bahai groups, unions, fraternal or athletic groups, or school groups?Yes01/23/2024How often do you attend meetings of the clubs or organizations you belong to?More than 4 times per year01/23/2024re you , , , , never , or living with a partner?Living with uqnwggi3701/23/2024UDIT-CAnswerDate RecordedQ1: How often do you have a drink containing alcohol?Never01/23/2024Q2: How many drinks containing alcohol do you have on a typical day when you are drinking?Patient does not drink01/23/2024Q3: How often do you have six or more drinks on one occasion?Never01/23/2024Overall Financial Resource Strain (CARDIA) AnswerDate RecordedHow hard is it for you to pay for the very basics like food, housing, medical care, and heating?Not very hard01/23/2024HQ-2AnswerDate RecordedPatient Health Questionnaire-2 Poptx241[facility] [place] of Occup[facility] Health - Occupational Stress QuestionnaireAnswerDate RecordedDo you feel stress - tense, restless, nervous, or anxious, or unable to sleep at night because yourmind is troubled all the time - these days?Rather much01/23/2024 Exercise Vital SignAnswerDate RecordedOn average, how many days per week do you engage in moderate to strenuous exercise (like a brisk walk)?7 days01/23/2024On average, how many minutes do you engage in exercise at this level?10 min 01/23/2024Hunger Vital SignAnswerDate RecordedWithin the past 12 months, you worried that your food would run out before you got the money to buymore.Never true01/23/2024Within the past 12 months, the food you bought just didn't last and you didn't have money to get more.Never true01/23/2024RAPARE - TransportationAnswerDate RecordedIn the past 12 months, has lack of transportation kept you from medical appointments or from getting medications? Patient ttqfrboy02/03/2024In the past 12 months, has lack of transportation kept you from meetings, work, or from getting things needed for daily living?No 01/23/2024Housing Stability Vital SignAnswerDate RecordedIn the last 12 months, was there a time when you were not able to pay the mortgage or rent on time?No 01/23/2024In the past 12 months, how many times have you moved where you were living?t any time in the past 12 months, were you homeless or living in a long-term (including now)?No01/23/2024CommentsNoSex and Gender InformationValueDate RecordedSex Assigned at BirthNot on fileLegal SexFemale 05/04/2022 7:02 PM EDTGender IdentityNot on fileSexual OrientationNot on file documented as of this encounter Plan of Treatment Not on file documented as of this encounter Procedures Procedure NamePriorityDate/TimeAssociated DiagnosisCommentsUS PELVIS W/ NISWTGVJFJQI66/30/2024 8:05 AM EST documented in this encounter Results * US PELVIS W/ TRANSVAGINAL (02/19/2024 8:05 AM EST)Anatomical RegionLaterality ModalityOtherSpecimen (Source)Anatomical Location / LateralityCollection Method / VolumeCollection TimeReceived Time02/19/2024 8:05 AM EST Narrative 02/19/2024 8:08 AM EST [facility] ?[address] ? [place] [address] ? Ultrasound Report ? Signed ? Patient: MARGARET NICHOLSON ?MR#: [id number] ?? : 1995 ?Acct:[id number] ?? Age/Sex: 28 / F ?ADM Date: 02/19/24 ?? Loc: US ? Attending Dr: Brenda Blas D.O. ? Ordering Physician: Brenda Blas D.O. ?? Date of Service: 02/19/24 ?? Procedure(s): US pelvis w/ transvaginal ?? Accession Number(s): [id number] ? cc: Brenda Blas D.O.; Lamont Blair M.D. ? [facility] ? [address] ? [place] [address] ? Patient Name: ?? MARGARET NICHOLSON ? MRN: [facility]:[id number] ? date: 1995 ?Sex: F ?? Assigned Patient Location: US ?? Current Patient Location: [place] ?? Accession/Order Number: [id number] ?? Exam Date: 02/19/2024 ??07:11 ?Report Date: 02/19/2024 ??08:05 ? At the request of: ?? BRENDA ??LEONARDO ? Procedure: ??US pelvis w/ transvaginal ? EXAMINATION: US pelvis w/ transvaginal ? HISTORY: Pelvic pain in female R10.2 ? COMPARISON: Ultrasound pelvis 11/24/2022, 08/14/2021 ? TECHNIQUE: Transabdominal and/or transvaginal sonographic examination was ?? performed as indicated by examination type. ? FINDINGS: ?? UTERUS: Hysterectomy. ?? RIGHT OVARY: Contains a heterogeneous hypoechoic mass versus complex cyst, 4.6 ? x 3.7 x 3.2 cm. Duplex Doppler demonstrates normal waveform and flow; ?? resistive ?? index 0.4. Ovary size: 5.3 x 4.4 x 4.2 cm ? LEFT OVARY: Normal size and appearance. Duplex Doppler demonstrates normal ?? waveform and flow; resistive index 0.4. Ovary size: 2.6 x 1.7 x 2.5 cm ? CUL-DE-SAC: Unremarkable. No significant free fluid. ?? BLADDER: Unremarkable. ?? OTHER: None. ? US/US pelvis w/ transvaginal ?? IMPRESSION: ? 1. Right ovary contains a 4.6 cm mass versus complex cyst. Consider follow-up ?? ultrasound evaluation in 6 weeks to document regression versus stability. ?? 2. Normal appearance of left ovary. ?? 3. Prior hysterectomy. ? Electronically authenticated by: ANDRE ??GAIL ?? Date: 02/19/2024 ??08:05 ? Dictated By: ?Andre Ibrahim M.D. ? Signed By: ?02/19/24 0808 ? DD/ 0805 ? TD/TT: ? Sanitation Truck Driver: Procedure Note Radiology, Radiologist, MD - 02/19/2024 [place] [address] Ultrasound Report Signed Patient: MARGARET NICHOLSON LMR#: [id number] : 1995Acct:[id number] Age/Sex: 28 / FADM Date: 02/19/24 Loc: US Attending Dr: Brenda Blas D.O. Ordering Physician: Brenda Blas D.O. Date of Service: 02/19/24 Procedure(s): US pelvis w/ transvaginal Accession Number(s): [id number] cc: Brenda Blas D.O.; Lamont Blair M.D. [place] [id number] Patient Name: MARGARET NICHOLSON MRN: [id number] date: 1995 Sex: F Assigned Patient Location: [place] Current Patient Location: [place] Accession/Order Number: [id number] Exam Date: 02/19/2024 07:11 Report Date: 02/19/2024 [...] ANDRE IBRAHIM Date: 02/19/2024 08:05 Dictated By: Ander Ibrahim M.D. Signed By:02/19/24807 DD/ 0805 TD/TT: Sanitation Truck Driver: Authorizing ProviderResult TypeResult StatusGeneric External Data Provider CLINIS[facility]NC IMAGINGFinal Result documented in this encounter Visit Diagnoses Not on filedocumented in this encounter Care Teams Team MemberRelationshipSpecialtyStart DateEnd Date Lamont Blair MD PCP - GeneralFamily Medicine/04/16 Unallocated, Nelson Davalos MD [address] [place] [address] [facility] Lamont Blair MD [address] [place] [address] PCP - [facility]05/21/2510documented as of this encounter
--- OUTSIDE RECORDS SUMMARY | 2024-12-26 09:49 | XMS_ITS | Encounter Summary ---
Author Organization [facility] Address [address] [place] [address] Care Team Providers Care Potato Chip Sacking Machine Operator Name Role Phone Abdifatah Brady (Historical) Primary Care Provide r Unavailable Source Comments In the event this information is protected by the Federal Confidentiality of Alcohol and Drug AbusePatient Records regulations: The Federal rules restrict any use of the information to criminally investigate or prosecute any alcohol or drug abuse patient.[facility] Encounter Details DateTypeDepartmentCare Team (Latest Contact Info)Xegwcnsyccg73/23/2025 Patient Msg Neurology [address] [place] [address] Basil Cornelius, DO [address] [place] [address] Zavzpret Social History Tobacco UseTypesPacks/DayYears UsedDateSmoking Tobacco: NeverSmokeless Tobacco: NeverPHQ-2AnswerDate RecordedPHQ-2 abaly847/07/2025Area Deprivation IndexAnswer Date RecordedNational Score (1-100), lower number is lower hazr218806/23/2022State Score (1-10), lower number is lower cmnj9823Data from: https://www.neighborhoodatlas.medicine.[facility]/. Last address used for egzllfaidxq[address]CommentsNoSex and Gender Information ValueDate RecordedSex Assigned at BirthNot on fileLegal NuvSeuhml94/01/2014 10:32 AM EDTGender IdentityNot on fileSexual OrientationNot on filedocumented as of this encounter Functional Status * Are you deaf or do you have serious difficulty hearing?AnswerDate of BumysoxevcUynwthTg35/10/2023 6:20 PM Katie Wells RN * Are you blind or do you have serious difficulty seeing, even when wearing glasses?AnswerDate of EmgduxqexeJjkgvmFh87/10/2023 6:20 PM Katie Wells RN * Do you have serious difficulty walking or climbing stairs?AnswerDate of ZxskdntbdfFbhqedPq94/10/2023 6:20 PM Katie Wells RN * Do you have difficulty dressing or bathing?AnswerDate of AssessmentAuthorNo 04/01/2022 6:20 PM Katie Wells RN * Because of a physical, mental, or emotional condition, do you have difficulty doing errands alone such as visiting a doctor's office or shopping?AnswerDate of QcejptlsjdCizkyiUv28/10/2023 6:20 PM Katie Wells RN documented as of this encounter Mental Status * Because of a physical, mental, or emotional condition, do you have serious difficulty concentrating, remembering, or making decisions?AnswerEntry Date UbhpwoQr24/10/2023 6:20 PM Katie Wells RN documented in this encounter Plan of Treatment DateTypeDepartmentCare Team (Latest Contact Info)Vrlfgvuresl81/16/2026 9:30 AM ESTInfusion Center Neurology [address] [facility] [place] [address] vyeptidocumented as of this encounter Visit Diagnoses Not on filedocumented in this encounter Care Teams Team MemberRelationshipSpecialtyStart DateEnd Date Abdifatah Brady (Historical) PCP - General05/21/13documented as of this encounter
--- OUTSIDE RECORDS SUMMARY | 2024-12-26 09:49 | XMS_ITS | Clinical Summary ---
Author Organization [employer] Address [id number] [place] [address] Care Team Providers Care Garment Presser Name Role Phone Corine Gold MD Primary Care Provider [phone] Allergies Active AllergyReactionsCriticalityNoted BkzeRewomfgzAyygwgdtFsgiUqgitl70/17/2022 Adhesive Tape-Ssgrptjyd90/19/2017AmoxicillinHives,GgeguualVlfv44/21/2025 Amoxicillin-Pot ClavulanateHives,AjxwyaodLezb00/21/2025Bee Venom Protein (Honey Bee)RoykfkgoayaHsts59/05/3177HpgzqzyzbLvkixClm84/17/2022arbamazepineOther (See Comments)12/24/2020 anxiety FiixhbeyzvvfgHetsm26/23/3689ZannpogpsngOxizr99/06/2021ProchlorperazineAnxietyLow 12/29/20239473LupsdlggbtpxiUulum51/27/3851JgovbssecvsvfqvnXknrt04/23/2023 DihydroergotamineGI Disturbance,GxqaqCrvylz06/07/2023 Other Reaction(s): Intolerance Chest tightness, numbness and tingling in bilateral extremities, increased anxiety Eptinezumab-JjmrItching,QkxyOhh3605/02/2024 Patient described extreme itching located on her chest and arms (bilaterally). DityikiwocaKpfcmpceshmndu70/05/3711WgmzwupzbuOnqfa80/19/2017LevetiracetamHives, Enyqjoi6111/11/2022MetoclopramideHives,Other (See Comments)12/24/2020ropranolol HclHives,Other (See Comments)12/24/2020 Migrianes Pyrilamine-BdehozarrpagnqzmXicji61/12/2023Metoclopramide HclItching,AnxietyLow 12/08/2016 No rash MuaobkgmgrpfScklj07/17/4476SxicgnvencyfJfyho07/19/2017 Medications MedicationSigDispense QuantityRefillsLast FilledStart DateEnd DateStatus diazePAM (VALIUM) 10 mg tablet Take 0.5 tablets (5 mg total) by mouth in the morning and at bedtime.Active lithium carbonate 300 mg tablet Take 2 tablets (600 mg total) by mouth nightly.01/17/2022ctive cetirizine (ZyrTEC) 10 mg tablet Take 1 tablet (10 mg total) by mouth in the morning. 30 tablet 3Active albuterol (PROVENTIL,VENTOLIN) 2.5 mg /3 mL (0.083 %) nebulizer solution Indications:Moderate asthma with acute exacerbation, unspecified whether persistentInhale 3 mL (2.5 mg total) by nebulization 4 (four) times a day as needed for wheezing. 360 mL 5Active traZODone (DESYREL) 300 MG tablet Take 1 tablet (300 mg total) by mouth nightly.5Active acetaminophen (TYLENOL EXTRA STRENGTH) 500 mg tablet Take 2 tablets (1,000 mg total) by mouth every 6 (six) hours as needed for pain. 30 tablet 5Active ibuprofen (MOTRIN) 800 mg tablet Indications:Post-op painTake 1 tablet (800 mg total) by mouth 3 (three) times a day. 21 tablet 5Active lidocaine (XYLOCAINE) 5 % ointment Indications:Post-operative painApply 1 Application topically as needed for pain. 35.44 g 5Active ketoconazole (NIZORAL) 2 % shampoo Apply 1 Application topically 2 (two) times a week. Apply to damp skin, lather, leave on 5 minutes,and rinse 120 mL 5Active scopolamine (TRANSDERM-SCOP) 1 mg/[address] 1 patch on the skin every third day.5Active ubrogepant (UBRELVY) 100 mg tablet 5Active estradioL (ESTRACE) 1 mg tablet Indications:Menopausal symptomsTake 1 tablet (1 mg total) by mouth in the morning. 30 tablet 5Active loratadine (CLARITIN) 10 mg tablet Indications:Seasonal allergic rhinitis, unspecified triggerTake 1 tablet (10 mg total) by mouth daily as needed for allergies. 90 tablet 5Active fluticasone propionate (FLONASE) 50 mcg/actuation nasal spray Indications:Seasonal allergic rhinitis, unspecified triggeradminister 1 spray IN EACH NOSTRIL EVERY OTHER DAY 16 g 5Active mupirocin (BACTROBAN) 2 % ointment Indications:Eye infection, bilateralApply 1 Application topically in the morning and 1 Application before bedtime. 22 g 5Active EPINEPHrine (EPIPEN) 0.3 mg/0.3 mL auto-injector Indications:Allergic reaction, sequela0.3 mL (0.3 mg total) by other route as needed (exposure to allergen). 2 each 5Active baclofen (LIORESAL) 10 mg tablet Indications:Muscle spasmTAKE 1 TABLET BY MOUTH NIGHTLY 30 tablet 5Active carBAMazepine XR (TEGretol XR) 100 mg 12 hr tablet Take 2 tablets (200 mg total) by mouth in the morning and 2 tablets (200 mg total) before bedtime. 120 tablet 5Active rkshkaunutw-xsjapdurh-yhnjpeue (TRELEGY ELLIPTA) 200-62.5-25 mcg blister with device Indications:Moderate asthma with acute exacerbation, unspecified whether persistentINHALE 1 PUFF BY MOUTH IN THE MORNING 60 each 5Active omeprazole (PriLOSEC) 40 mg capsule Indications:Gastroesophageal reflux disease without esophagitisTake 1 capsule (40 mg total) by mouth in the morning and at bedtime. 60 capsule 5Active budesonide (PULMICORT) 1 mg/2 mL nebulizer solution Indications:Moderate persistent asthma without complicationInhale 2 mL (1 mg total) by nebulization in the morning. 60 mL 5Active albuterol (VENTOLIN HFA) 90 mcg/actuation inhaler Indications:Moderate persistent asthma, unspecified whether complicatedINHALE TWO PUFFS BY MOUTH EVERY 4 HOURS NEEDED 18 g 5Active levalbuterol (XOPENEX HFA) 45 mcg/actuation inhaler Indications:Moderate persistent asthma without complicationInhale 1-2 puffs every 4 (four) hours as needed for wheezing. 15 g 5Active white petrolatum-mineral oiL (SYSTANE NIGHTTIME) 94-3 % ointment Indications:Watery eyesAdminister 1 Application (0.25 inches total) to both eyes nightly. 3.5 g 5Active loratadine-pseudoephedrine (CLARITIN-D 24-hour) 10-240 mg per 24 hr tablet Indications:Moderate persistent asthma without complication,Seasonal allergic rhinitis, unspecified triggerTake 1 tablet by mouth in the morning. 30 tablet 5Active predniSONE (DELTASONE) 10 mg tablet Indications:Moderate persistent asthma without complicationTake 3 tablets once daily for 3 days, then 2 tablets once daily for 3 days then 1 tablet daily 19 tablet 5Active peg 400-propylene glycol, PF, (SYSTANE ULTRA, PF,) 0.4-0.3 % dropperette Indications:Watery eyesAdminister 1 drop to both eyes 3 (three) times a day. 30 each 5Active rousjahdexu-plptswfjl-kilwvora (TRELEGY ELLIPTA) 200-62.5-25 mcg blister with device Indications:Moderate asthma with acute exacerbation, unspecified whether persistentInhale 1 puff in the morning. 60 each Discontinued albuterol (VENTOLIN HFA) 90 mcg/actuation inhaler Indications:Moderate persistent asthma, unspecified whether complicatedINHALE TWO PUFFS BY MOUTH EVERY 4 HOURS NEEDED 18 g Discontinued(Reorder) omeprazole (PriLOSEC) 40 mg capsule Take 1 capsule (40 mg total) by mouth in the morning.12/17/2024Discontinued (Reorder) peg 400-propylene glycol, PF, (SYSTANE ULTRA, PF,) 0.4-0.3 % dropperette Indications:Watery eyesAdminister 1 drop to both eyes as needed (for watery eyes and burning). 30 each 51DiscontinuedHospital, Clinic, or Other Facility Administered MedicationOrdered DoseRouteFrequencyStart DateEnd DateStatus diazePAM (VALIUM) tablet 5 mg Indications:Psychogenic nonepileptic seizure5 mgoral2 times daily03/28/2024 Active Active Problems ProblemNoted DateDiagnosed DateGastroesophageal reflux disease without gcztsgkjotu45/28/2025Environmental tvrwdtbri85/28/2025Eye infection, bilateral 07/24/2024Ingrown nail of great toe07/24/2024bdominal wall /17/2025 Postoperative surgical complication involving genitourinary system associated with genitourinary extkjkngj93/17/2025S/P bilateral salpingo-oophorectomy 03/28/2024hronic migraine without aura without status migrainosus, not dpdaszmxzpt25/05/2023Polycystic vzcnmbn2801/24/2023Moderate persistent asthma without mwbyenuyonpq64/09/0661Xrbfmjq03/09/2022epressive /09/2022 Psychogenic nonepileptic foebwwo3210/20/2021Migraine with aura and without status migrainosus, not tnzaflzhvlq44/17/2022ilateral occipital ipxxyekoy49/17/2022 Encounter for observation of suspected anomaly not found06/04/2019 Resolved Problems ProblemNoted DateDiagnosed DateResolved DateMild persistent asthma with (acute) sbddzjfgqoog26ute coughSeizure-like jbqqbelw13/07/2024LOC (loss of consciousness) Simple partial seizure ytmgxhjp37 Encounters DateTypeDepartmentCare UrwjKkfwnaeuemx07/31/2025 10:00 AM EDTOffice Visit [facility] [address] [place] [address] [place] [address] Saba Carter N, PAYROLL BENEFITS ADMINISTRATOR-DOWEL INSPECTOR Moderate persistent asthma without complication (Primary Dx); Watery eyes; Seasonal allergic rhinitis, unspecified mxgwubo4212/19/2024Orders Only [facility] [address] [phone] Mariah Peña, DO Moderate persistent asthma, unspecified whether dcqgxnjhyhu75/28/2025 9:30 AM EDTOffice Visit [facility] [address] [phone] Mariah Peña, DO Moderate persistent asthma without complication (Primary Dx); Gastroesophageal reflux disease without esophagitis; Environmental dzcysqaex43/28/2025Telephone [facility] [address] [place] [phone] Heraclio Jovel [facility] Prior Authorization (Dupixent )12/17/20248371Oawuxp44/23/2025Telephone [facility] [address] [place] [address] Corine Gold MD Sleep Lab (Comp PSG/PAP)12/10/2024 2:30 PM EDTOffice Visit [facility] [address] [place] [address] [place] [address] Corine Gold MD JUAN DAVID (obstructive sleep apnea) (Primary Dx)12/10/2024Telephone [facility] [address] [phone] Malia Mason RN 12/10/20244665Gqmbzi38/20/2025Refill [facility] [address] [phone] Mariah Peña, DO Moderate asthma with acute exacerbation, unspecified whether persistent 11/24/2024 5:31 PM EDT - 11/25/2024 2:16 AM EDTEmergency [facility] [address] [facility] [place] [phone] Cecilio Grant, DO Nonintractable headache, unspecified chronicity pattern, unspecified headache type (Primary Dx) Discharge Disposition: Home11/24/20243759Jyylgh06/25/6898Hmefel55/04/2025 2:40 PM EDTOffice Visit [facility] [address] [place] [address] [place] [address] Mali Hart, UMANG-DOWEL INSPECTOR Left otitis media, unspecified otitis media type (Primary Dx); Mild asthma with exacerbation, unspecified whether qnjwdqaddb20/04/2025Travel 09/30/2024Orders Only [facility] [address] [phone] Mariah Peña, DO Moderate persistent asthma, unspecified whether nhnqrztzqop12/10/2025Refill [facility] [address] [place] [address] Corine Gold MD Muscle spasmfrom Last 3 Months Immunizations ImmunizationAdministration DatesNext JyaRAaQ3609/07/2001DTaP / HIB / IPV03/05/1997 ,07/05/1996,05/06/1996,01/15/1996HPV Dpqerdeuhprw31/02/2013,01/20/2012, 11/15/2011Hep B, Adolescent or Yyvabrtzz16/05/2003,05/06/1996,1995, 1995IPV09/07/2001Influenza (IM) Preservative Free12/31/2015,11/27/2014, 10/23/2012,11/15/2011Influenza, Injectable, Mdck, Preservative Free, Quad 12/08/2017MMR09/07/2001,03/05/1997Meningococcal JQD3I7111/15/2011Tdap09/21/2015 Ghhmokwzk83/25/2012,10/25/2002 Family History Medical HistoryRelationNameCommentsAnesthesia problemsFatherprolonged emergence Cystic fibrosisFatherOvarian cancerMaternal AuntAnesthesia problemsMother Prolonged emergenceCystic fibrosisMotherRelationNameStatusCommentsFatherAlive Maternal AuntMotherAliveSister 1AliveSister 2AliveSister 3Alive Social History Tobacco UseTypesPacks/DayYears UsedDateSmoking Tobacco: NeverSmokeless Tobacco: Never Tobacco Cessation:Counseling Given: Not Answered Alcohol UseStandard Drinks/WeekCommentsNot Currently0 (1 standard drink = 0.6 oz pure alcohol)[facility] UtilitiesAnswerDate RecordedIn the past 12 months [...] care, and heating?Not hard at all04/08/2024PHQ-2AnswerDate RecordedTotal Ffnup015PRAPARE - TransportationAnswerDate RecordedIn the past 12 months, [...] a part of a household?No04/08/2024hildcareAnswerDate RecordedChildcareUnknown 08/01/2018EmploymentAnswerDate OtxndyplNbygsqkozoEehenme43/12/2019Hunger ScreeningAnswerDate RecordedWithin the past 12 months we worried whether our food would run out before we got money to buy more.Never True12/20/2024Within the past 12 months the food we bought just didn't last and we didn't have money to get more.Never True12/20/2024Purpose - LifeAnswerDate RecordedPurpose and direction in yuwvGrmbgig72/12/2021CommentsNoSex and Gender Information ValueDate RecordedSex Assigned at BirthNot on fileLegal XjpTrzhdm62/06/2015 11:52 AM EDTGender IdentityNot on fileSexual OrientationNot on file Last Filed Vital Signs Vital SignReadingTime TakenCommentsBlood Kynhzdrn805/7812/20/2024 10:01 AM EDT Vqesu86668/31/2025 10:01 AM ODXAxekjnrgvqb74.6 ??C (97.9 ??F)12/20/2024 10:01 AM EDTRespiratory Sfxa0372 2:07 AM EDTOxygen Ececshtknx70%12/20/2024 10:01 AM EDTInhaled Oxygen Concentration--Iugqvb698.5 kg (283 lb 6.4 oz)12/20/2024 10:01 AM TYQAztxpd669.9 cm (5' 0.98 )12/20/2024 10:01 AM EDTBody Mass Index53.58 12/20/2024 10:01 AM EDT Plan of Treatment DateTypeDepartmentCare Team (Latest Contact Info)Zuydzahbbnj56/18/2025 3:15 PM ESTOffice Visit [facility] [address] [place] [phone] Corine Gold MD [address] [place] [address] 01/30/2025 8:00 PM ESTClinical Support [facility] [address] [place] [address] Corine Gold MD [address] [facility] [address] 02/27/2025 8:00 PM ESTClinical Support [facility] [address] [place] [address] Corine Gold MD [address] [facility] [address] 03/25/2025 9:45 AM ESTOffice Visit [facility] [address] [phone] Mariah Peña DO [address] [place] [address] Health MaintenanceDue DateLast DoneCommentsInfluenza Qwxouyf3510/21/2024 12/08/2017, 12/31/2015, 11/27/2014, Additional history existsDTaP,Tdap and Td Vaccines (7 - Td or Tdap), 09/07/2001, 03/05/1997, Additional history existsAdult BMI Follow Up Plandult BMI Tqbcxfuro02Depression Dgglqwubc96Tobacco Lkxkbfyiw59Pap SlniaSnywbybpmkey63/25/2025 Goals GoalPatient Goal TypeAssociated ProblemsRecent ProgressPatient-Stated?Author home Tamiko Thompson, PRATIBAH Note: Evaluation of progress towards goal: Patient stated goal is to return home with [facility] for assistance with wound care Medical Devices Not on file Procedures Procedure NamePriorityDate/TimeAssociated DiagnosisCommentsCT BRAIN WO CONTSTAT 11/24/2024 9:06 PM EDT ECG 12-YPTHQWFL91/05/2025 7:08 PM EDTCOMPREHENSIVE METABOLIC MVFMGLCDM98/05/2025 7:04 PM EDT CBC WITH AUTO TRGMWGQTJYKDIUNW07/05/2025 7:04 PM EDT from Last 3 Months Results * CT brain without contrast (11/24/2024 9:06 PM EDT)Anatomical RegionLaterality ModalityNeuro, Head, Head and Neck, Neuro CoveraN/AComputed TomographySpecimen (Source)Anatomical Location / LateralityCollection Method / VolumeCollection TimeReceived Time11/24/2024 10:17 PM EDT Narrative 11/24/2024 10:18 PM EDT EXAM: CT BRAIN WO CONT CLINICAL INFORMATION: Seizure. TECHNIQUE: CT head was performed without contrast utilizing 2.5 mm axial reconstruction with imagesreviewed in bone and brain windows. Automated exposure [...] Henry Solis MD on 11/24/2024 10:18 PM Authorizing ProviderResult TypeResult Michaela Grant DOIMG CT ORDERABLES Final Result * ECG 12 lead (11/24/2024 7:08 PM EDT)Specimen (Source)Anatomical Location / LateralityCollection Method / VolumeCollection TimeReceived Time11/24/2024 7:08 PM EDT Narrative Authorizing ProviderResult TypeResult Michaela Grant DOECG ORDERABLESFinal ResultPerforming OrganizationAddressCity/State/ZIP CodePhone Number TRACEMASTERVUE * (ABNORMAL) CBC auto differential (11/24/2024 7:04 PM EDT)ComponentValueRef RangeTest MethodAnalysis TimePerformed AtPathologist SignatureWBC8.34 - 11 x10E9/L1 7:[address] [facility]ORATORYRBC Count4.55 3.8 - 5.2 X10E12/L1 7:[address] [facility] Rnjveuojke00.311.7 - 15.5 g/dL11/24/2024 7:[address] [facility] WEPYZANEWRApiluuoqrm83.035 - 47 %11/24/2024 7:[address] [facility] ASKYRQRLUBRWB8826 - 100 fL11/24/2024 7:[address] [facility] FVCPVZZWXHBEY17.227 - 34 pg11/24/2024 7:[address] [facility] XKISISGQYANZET48.132 - 36 g/dL11/24/2024 7:[address] [facility] BIHEGLRSFNTSD20.811.5 - 15 %11/24/2024 7:[address] [facility] LABORATORYPlatelet Xefty503567 - 450 X10E9/L1 7:27 PM EDT [facility] LABORATORYMPV7.87 - 12 fL11/24/2024 7:[address] LABORATORYNeutrophils %55.2%11/24/2024 7:[address]ORYLymphocytes %30.0%11/24/2024 7:[address]ORYMonocytes %6.7%11/24/2024 7:[address] [facility]ORYEosinophils %7.5%11/24/2024 7:[address] [facility]ORYBasophils %0.6%11/24/2024 7:[address] [facility] LABORATORYNeutrophils Absolute (A)4.61.5 - 6.6 10*3/uL 11/24/2024 7:[address]ATORYLymphocytes Absolute 2.51.0 - 3.5 10*3/uL11/24/2024 7:[address] [facility] Monocytes Absolute0.60.0 - 0.9 10*3/uL11/24/2024 7:[address]ORYEosinophils Absolute0.6(H)0.0 - 0.4 10*3/uL11/24/2024 7:[address]OR[facility]ORYBasophils Absolute0.00.0 - 0.2 10*3/uL 11/24/2024 7:[address] [facility]OR[facility]ORYDifferential Type AUTOMATED DUMIFRBOXAHG93/05/2025 7:[address] LABORATORYSpecimen (Source)Anatomical Location / LateralityCollection Method / VolumeCollection TimeReceived TimeBloodVenous blood / Xyepest4711/24/2024 7:04 PM EDT1 7:14 PM EDT Narrative Authorizing ProviderResult TypeResult StatusJesse Jose TAI BLOOD ORDERABLES Final ResultPerforming OrganizationAddressCity/State/ZIP CodePhone Number [facility] [address] [place] [address], [place] [phone] * (ABNORMAL) Comprehensive metabolic panel (11/24/2024 7:04 PM EDT)Component ValueRef RangeTest MethodAnalysis TimePerformed AtPathologist SignatureSODIUM 144995 - 146 mmol/L1 7:[address] [facility] POTASSIUM4.13.5 - 5.0 mmol/L1 7:[address] [facility] CKRHXSYWYNDPHKALPY48192 - 109 mmol/L1 7:[address] [facility] LABORATORYCARBON VDROOCN2911 - 32 mmol/L1 7:[address] LABORATORYANION VIQ782 - 15 mmol/L1 7:48 PM [facility] LABORATORYBLOOD UREA QGEZLREZ353 - 23 mg/dL11/24/2024 7:[address] LABORATORYCREATININE0.690.40 - 1.00 mg/dL 11/24/2024 7:[address]ORATORYComment:METHOD TRACEABLE TO IDFL NNOXKBYNVTDTBRH8305 - 99 mg/dL11/24/2024 7:[address] [facility] LABORATORYCALCIUM9.08.5 - 10.5 mg/dL11/24/2024 7:48 PM [facility] LABORATORYTOTAL PROTEIN6.76.0 - 8.0 g/dL11/24/2024 7:[address] LABORATORYALBUMIN4.13.2 - 5.3 g/dL 11/24/2024 7:[address] LABORATORYALKALINE PHOSPHATASE 7739 - 130 U/L1 7:[address] [facility] MDBZURVKRIVXF41 <=41 U/L1 7:[address] [facility] ZCVXHNBQJDLMI68<=31 U/L 11/24/2024 7:[address] [facility] LABORATORYBILIRUBIN,TOTAL0.2(L) 0.3 - 1.2 mg/dL11/24/2024 7:[address] [facility]OR[facility]ORYEGFR Non-Race Dependent>90>=60 ml/min/1.73sq.m1 7:[address] [facility] LABORATORYComment: Reported eGFR is based on the CKD-EPI 2020 equation that does not use a race coefficient. Specimen (Source)Anatomical Location / LateralityCollection Method / Volume Collection TimeReceived TimeBloodVenous blood / Bzqearl7311/24/2024 7:04 PM EDT 11/24/2024 7:14 PM EDT Narrative Authorizing ProviderResult TypeResult StatusJesse Jose Grant [facility] BLOOD ORDERABLES Final ResultPerforming OrganizationAddressCity/State/ZIP CodePhone Number [facility] [address] [place] [address], from Last 3 Months Insurance Advance Directives * Full Code (Latest Code Status on File) Date ActivatedDate InactivatedComsouthcoast [facility]03/28/2024 2:56 PM2 8:49 PM Care Teams Team MemberRelationshipSpecialtyStart DateEnd Date Corine Gold MD [address] [facility] [place] [address] PCP - GeneralInternal Medicine03/25/24
--- OUTSIDE RECORDS SUMMARY | 2024-12-26 09:49 | XMS_ITS | Clinical Summary ---
Author Organization [facility] Address [address] [place] [id number] Care Team Providers Care Health Information Internship Name Role Phone Abdifatah Brady (Historical) Primary Care Provide r Unavailable Allergies Active AllergyReactionsCriticalityNoted DateCommentsAdhesive Tape-SiliconesRash 12/03/2021zithromycinOther: See Frwfilsx14/14/2022ihydroergotamineIntolerance Xuodtv5607/27/2022 Chest tightness, numbness and tingling in bilateral extremities, increased anxiety NgwvovgxxjHzry38/14/1706EmktalygvacxiLfvwtgu91/22/2023rochlorperazine TzyxzfoqnnoJaq44/08/2024ropranololHives,Other: See Gokupvcp77/31/2021 Migrianes Pyrilamine-UaxazykaohxgouuxYoiiv24/18/1621BnzlskbfxhzhwfDrfawapmqpy69/14/2022 AweeghsgbfbuZbetr62/17/2022 Medications MedicationSigDispense QuantityRefillsLast FilledStart DateEnd DateStatus diazePAM (VALIUM) 10 mg tablet 11/23/2021ctive albuterol sulfate 90 mcg/actuation breath activated powder inhaler Inhale 2 Puffs as instructed every 6 hours as needed for wheezing/shortness of breath.4Active magnesium oxide 400 mg magnesium cap Take 1 capsule by mouth daily at bedtime. 90 capsule 5Active promethazine (PHENERGAN) 25 mg tablet Indications:Intractable chronic migraine without aura and without status migrainosusTake 1 tablet by mouth every 4 hours as needed. FOR NAUSEA 90 tablet tive keTORolac (TORADOL) 10 mg tablet Take 1 tablet by mouth every 6 hours as needed (severe migraine). 20 tablet tive chlorzoxazone (PARAFON FORTE DSC) 500 mg tablet Take 1 tablet by mouth two times a day as needed for muscle spasm (migraine). 20 tablet tive ZOLMitriptan (ZOMIG) 5 mg nasal spray Use 1 [place] in the nose as needed at onset of migraine headache. If symptoms persist or return, mayrepeat dose in other nostril after 2 hours. Maximum of 2 sprays per 24 hours 12 each tive zavegepant (ZAVZPRET) 10 mg/actuation nasal spray Indications:Intractable chronic migraine without aura and with status migrainosusUse one nasal spray at migraine onset. May use once per 24 hours. 6 each 8:59 AM EDT5Active carBAMazepine XR (TEGRETOL XR) 100 mg 12 hr tablet Take 100 mg by mouth two times a day.08/20/2024tive desvenlafaxine ER (PRISTIQ) 50 mg 24 hr tablet Take 50 mg by mouth once daily.09/23/2024tive estradiol (ESTRACE) 1 mg tablet Take 1 mg by mouth every morning.Active progesterone micronized (PROMETRIUM) 100 mg capsule Take 100 mg by mouth once daily.6Active scopolamine (TRANSDERM-SCOP) patch 1.5 mg/72 hr (delivers 1 mg over 3 days) Indications:Intractable chronic migraine without aura and with status migrainosus,Nauseaapply 1 patch behind the EAR at least FOUR HOURS prior to exposure and every 3 (THREE) days NEEDED 4 patch 5Active Active Problems ProblemNoted DateDiagnosed DateIntractable chronic migraine without aura and without status kalpmrawmvh86/30/2024hronic migraine without aura, with intractable migraine, so stated, with status mbbawotqxof56/31/2024Intractable chronic migraine without aura and with status qgqwzaggdpo95/05/2023Seizure-like jlaedpgc20/10/2023sychogenic nonepileptic lmxphlm5010/20/2021 Encounters DateTypeDepartmentCare OvvjYyembhspqcn29/24/2025 1:30 PM EDTOffice Visit Neurology [address] [place] [address] Griffin Lepe PA-C Intractable chronic migraine without aura and with status migrainosus (Primary Dx)12/13/2024 8:30 AM EDSan [facility] [address] [place] [address] Chronic migraine without aura, with intractable migraine, so stated, with status migrainosus (Primary Dx); Intractable chronic migraine without aura and with status zsmfnwkdcxa41/23/2025 10:00 AM [facility] Neurology [address] [place] [address] Chronic migraine without aura, with intractable migraine, so stated, with status migrainosus (Primary Dx); Intractable chronic migraine without aura and with status qnisvzgufua26/23/2025 9:00 AM EDTOffice Visit Neurology [address] [place] [address] Basil Cornelius DO Intractable chronic migraine without aura and without status migrainosus (Primary Dx); Cervicalgia; Chronic migraine without aura, with intractable migraine, so stated, with status migrainosus; Intractable chronic migraine without aura and with status oviffupiwtq96/23/2025 Patient Msg Neurology [address] [place] [address] Basil Cornelius DO Yjrxfzfa53/22/2025 9:30 AM [facility] Neurology [address] [place] [address] Intractable chronic migraine without aura and without status migrainosus (Primary Dx)11/26/2024 1:45 PM [facility] [address] [place] [address] Raiza Morales, UMANG.SUPERVISOR DOPING Intractable chronic migraine without aura and with status yxkwbrpcqhp66/07/2025 Patient Msg Neurology [address] [place], [place] [id number] Provider, Rosa Vyepti Gubqtsza10/07/4740Ayrxpk49/27/2025Refill Neurology [address] [facility] [address] Griffin Lepe PA-C Refill Requestfrom Last 3 Months Social History Tobacco UseTypesPacks/DayYears UsedDateSmoking Tobacco: NeverSmokeless Tobacco: Never Tobacco Cessation:Counseling Given: Not Answered PHQ-2AnswerDate RecordedPHQ-2 zjqdu811rea Deprivation IndexAnswerDate RecordedNational Score (1-100), lower number is lower fuep976306/23/2022State Score (1-10), lower number is lower kzxr54906/23/2022ata from: https://www.neighborhoodatlas.medicine.[facility].edu/. Last address used for [address]/23/2022CommentsNoSex and Gender Information ValueDate RecordedSex Assigned at BirthNot on fileLegal AbvKxotsp65/01/2014 10:32 AM EDTGender IdentityNot on fileSexual OrientationNot on file Last Filed Vital Signs Vital SignReadingTime TakenCommentsBlood Zhvweapa151/5910 10:29 AM EDT Nlwhb4109/24/2025 10:29 AM OXOBepszyuwwsm09.3 ??C (97.3 ??F)01/19/2024 10:00 AM ESTRespiratory Vfnk2378 4:00 PM ESTOxygen Liadtlxnqt06%01/22/2024 1:35 PM ESTon room airInhaled Oxygen Concentration--Fshbha888 kg (282 lb 3 oz) 12/12/2024 8:58 AM STGUihrzf066.4 cm (5' 2.36 )09/19/2023 2:22 PM EDTBody Mass Index51.02009/19/2023 2:22 PM EDT Plan of Treatment DateTypeDepartmentCare Team (Latest Contact Info)Zbdegeyspap34/16/2026 9:30 AM ESTInfusion Center Neurology [address] [facility] [address] vyeptiHealth MaintenanceDue DateLast DoneCommentsAnxiety Rtcjppwwx63/24/2014 Depression Zfzvcgfvf81/24/2014HIV Xotlgjzlr81/24/2014Hepatitis C Screening 11/13/2013Cervical Cancer Onyneiqxj99/24/2017Covid-19 Vaccine ( season)2024Influenza Vaccine (#1), 12/31/2015, 11/27/2014, Additional history existsDTaP,Tdap,Td Vaccine (8 - Td or Tdap) , 10/24/2013, 09/07/2001, Additional history existsHepatitis B YbaqtxaMprtxkiro42/05/2003, 05/06/1996, 1995, Additional history exists HPV FwgxraaBhxzdtamn31/02/2013, 01/20/2012, 11/15/2011 Insurance Care Teams Team MemberRelationshipSpecialtyStart DateEnd Abdifatah Brady (Historical) PCP - General05/21/13
--- OUTSIDE RECORDS SUMMARY | 2024-12-26 09:49 | XMS_ITS | Clinical Summary ---
Author Organization [facility] Address [address] [place] [address] Care Team Providers Care Commercial Loan Administrator Name Role Phone Lamont Blair MD Unavailable Allergies Active AllergyReactionsCriticalityNoted BlrqKbubjfrkLgyfmtrvjdtv39/12/2023Bee VrcucCupjtls34/05/4989IedajebtiSwvaiGnl82/17/0193IsadfyhnxykgqLxzhnpj77/04/2021 anxiety CephalexinHives,VwzeEih4712/08/20167141GmmafvkndafpnDpdfm94/23/2023larithromycinGI cziiahhayjt37/16/1774MgaseqzuirtWmzivhm68/06/5504FinklpgsrdqtvsdiJlmzo48/23/2023 Dextromethorphan-OfoftbmjvgKgyad17/18/2022DihydroergotamineGI intoleranceMedium 07/27/2022 Chest tightness, numbness and tingling in bilateral extremities, increased anxiety GlwpijteyzdlgCdblhgi36/22/2023MetoclopramideHives,Unknown,QapgFwg2312/08/2016Other Hives4332EvslhhkwtviOatdt78/04/2021 Migrianes RbrglolbkatsHldel04/17/2022 Other Reaction(s): intolerance to med Wound Dressing SktwyhnuRucbBffwxi22/19/2017 Medications MedicationSigDispense QuantityRefillsLast FilledStart DateEnd DateStatus promethazine (Phenergan) 25 MG suppository Insert 25 mg into the rectum every 6 (six) hours if needed for nausea or vomitingActive Acetaminophen Extra Strength 500 MG tablet Take 500 mg by mouth every 6 (six) hours if needed (pain)03/28/2024tive albuterol (2.5 MG/3ML) 0.083% nebulizer solution Inhale 2.5 mg 4 (four) times a day as ruvkih6603/20/2024tive albuterol HFA 90 mcg/act inhaler Inhale 2 puffs every 4 (four) hours if yipiae8605/27/2024tive amitriptyline (Elavil) 100 MG tablet Take 100 mg by mouth at cxsftpv5306/24/2024tive baclofen (Lioresal) 10 MG tablet Take 10 mg by mouth at bedtimeActive chlorzoxazone (Parafon Forte) 500 MG tablet Take 500 mg by mouth 2 (two) times a day as needed for muscle lgpcaf6105/31/2024 Active diazePAM (Valium) 10 MG tablet Take 10 mg by mouth 1 (one) time each day at the same timeActive fluticasone (Flonase) 50 MCG/ACT nasal spray Administer 1 spray into each nostril Daily06/10/2024tive ibuprofen 800 MG tablet Take 800 mg by mouth every 6 (six) hours if needed for moderate pain04/15/2024 Active ketoconazole (NIZOral) 2 % shampoo Apply 1 Application topically 2 (two) times a week04/25/2024tive ketorolac (Toradol) 10 MG tablet Take 10 mg by mouth every 8 (eight) hours if needed for mild pain06/22/2024 Active loratadine (Claritin) 10 MG tablet Take 10 mg by mouth Daily as klreen8806/06/2024tive omeprazole (PriLOSEC) [address] capsule Take 40 mg by mouth Daily03/20/2024tive ondansetron ODT (Zofran-ODT) 4 MG disintegrating tablet Take 4 mg by mouth every 6 (six) hours if needed for nauseaActive scopolamine (Transderm-Scop) 1 mg/72 hr patch [address] 1 patch on the skin every 3rd (third) dayActive Ubrelvy 100 MG tablet Take 100 mg by mouth if needed (migraine)05/03/2024tive carBAMazepine XR (TEGretol XR) 100 MG 12 hr tablet Take 100 mg by mouth in the morning and 100 mg before bedtime.5Active trimethoprim-polymyxin b (Polytrim) ophthalmic solution 5Active estradiol (Estrace) 1 MG tablet Indications:Low libido,Dyspareunia in femaleTake 1 tablet (1 mg) by mouth in the morning. 90 tablet //6Active progesterone (Prometrium) 100 MG capsule Indications:Hot flashes due to surgical menopauseTake 1 capsule (100 mg) by mouth Daily 30 capsule 1108/6Active estradiol (Estrace) 0.1 MG/GM vaginal cream Indications:Vaginal drynessInsert 2 g into the vagina at bedtime At bedtime for 2 weeks, then at bedtime twice a week. 42.5 g ctive metroNIDAZOLE (Flagyl) 500 MG tablet Indications:BV (bacterial vaginosis)Take 1 tablet (500 mg) by mouth in the morning and 1 tablet (500 mg) before bedtime. Do all this for 7 days. Do not drink alcohol while taking this medication. 14 tablet /Expired fluconazole (Diflucan) 150 MG tablet Indications:Yeast infectionTake 1 tablet (150 mg) by mouth 1 (one) time for 1 dose This is a 1 time dose, take single tablet by mouth. 1 tablet Expired Active Problems ProblemNoted DateDiagnosed DateGeneralized abdominal pain02/09/2024 Assessment & Plan (02/09/2024 12:18 PM EST): Unclear cause of pain and check CT. Referred to GI. Intractable nausea and gkdrengf17/19/2024 Assessment & Plan (02/09/2024 12:19 PM EST): Severe nausea and emesis, not able to drink or take medication. To ER several times and weight down20 pounds in the past 2 1/2 weeks. Will attempt to get zofran pump from home health. Check CT abdomen. Follow with GI. Generalized edema01/23/2024 Assessment & Plan (01/23/2024 1:55 PM EST): Unclear etiology and check labs and CXR. Start lasix PRN. SOB (shortness of breath) on cwblfiwt49/03/2024 Assessment & Plan (01/23/2024 1:55 PM EST): Severe symptom and check CXR. Use albuterol PRN and start prednisone. Pain, dheouw0801/09/2024 Assessment & Plan (01/09/2024 10:07 AM EST): Broken tooth and follow with dentist. Gargle with warm salt water. Start ultram PRN. Ybyggtc9401/01/2024 Assessment & Plan (01/09/2024 10:08 AM EST): Possibly related to bipolar. Check labs. Encounter for long-term (current) use of bpgsbyfkcms55/11/2024Mild persistent asthma with (acute) mxnpbtxadeaq21/20/2024 Assessment & Plan (02/09/2024 12:19 PM EST): [...] or congestion. Class 3 severe obesity due to excess calories without serious comorbidity with body mass index (BMI) of 50.0 to 59.9 in adult03/21/2023 Assessment & Plan (01/09/2024 10:08 AM EST): [...] Continue medications as prescribed. Mixed bipolar I cshagyxm91/05/2023 Assessment & Plan (01/09/2024 10:07 AM EST): Denies worsening symptoms and follow with specialists Assessment & Plan (11/15/2023 9:45 AM EDT): Follow with specialists Chronic migraine without aura without status migrainosus, not intractable 01/24/2023 Assessment & Plan (01/09/2024 10:08 AM EST): PINEDA worse and follow with specialists. Generalized anxiety wjiqmpnq39/05/2023ersistent disorder of initiating or maintaining sleep01/24/2023Mild persistent csvstp6701/24/2023 Assessment & Plan (03/21/2023 12:36 PM EST): Continued symptoms and check PFTs. Refer to pulmonology. Use albuterol PRN. Polycystic zdqarbm3701/24/2023sychogenic nonepileptic mvsquip3901/24/2023elvic pain in mnhcfd1012/19/2022 Resolved Problems ProblemNoted DateDiagnosed DateResolved DateAcute bronchitis due to other specified grjrodnke48 Assessment & Plan (11/15/2023 9:42 AM EDT): [...] PRN cough or congestion. Acute right flank pain/ Assessment & Plan (03/21/2023 12:35 PM EST): History suggestive of kidney stone and check x-ray. If stone will add flomax. If negative check US.Use ultram PRN. Encounters DateTypeDepartmentCare JvyqQrdrysdgbng37/22/2025Telephone [facility] [address] [place] [address] Ammy Carrington MA 2024Telephone [facility] [address] [place], [facility] Zay Blas DO 10/31/2024Telephone [facility] [address] [place], [facility] Ammy Carrington MA 09/30/2024Telephone [facility] [address] [place] [address] Ammy Carrington MA 09/30/2024Telephone [facility] [address] [place] [address] Ammy Carrington MA from Last 3 Months Family History Medical HistoryRelationNameCommentsChromosomal disorderDaughter 2Epididymitis Daughter 2AsthmaFatherHeart diseaseFatherAllergiesMotherAsthmaMotherDiabetes MotherDiabetes insipidusMotherMental illnessSon 1Mental illnessSon 2RelationName StatusCommentsDaughter 1AliveDaughter 2AliveFatherAliveMotherAliveSister 1Alive Sister 2AliveSister 3AliveSon 1AliveSon 2Alive Social History Tobacco UseTypesPacks/DayYears UsedDateSmoking Tobacco: NeverPassive Smoke Exposure: NeverSmokeless Tobacco: Never Tobacco Cessation:Counseling Given: Not Answered Alcohol UseStandard Drinks/WeekCommentsNever0 (1 standard drink = 0.6 oz pure alcohol)Caffeine intake: >4 cups per mzfT7278 Health LiteracyAnswerDate Recorded How often do you need to have someone help you when you read instructions, pamphlets, or other written material from your doctor or pharmacy?Never 01/23/2024Social Connection and Isolation PanelAnswerDate RecordedIn a typical week, how many times do you talk on the phone with family, friends, or neighbors?More than three times a week01/23/2024How often do you get together with friends or relatives?Twice a week01/23/2024How often do you attend hoahaoism or episcopalian services?More than 4 times per year01/23/2024o you belong to any clubs or organizations such as hoahaoism groups, unions, fraternal or athletic donta ups, or school groups?Yes01/23/2024How often do you attend meetings of the clubs or organizations you belong to?More than 4 times per year01/23/2024re you , , , , never , or living with a partner? Living with kodomom0001/23/2024UDIT-CAnswerDate RecordedQ1: How often do you have a drink containing alcohol?Never01/23/2024Q2: How many drinks containing alcohol do you have on a typical day when you are drinking?Patient does not drink 01/23/2024Q3: How often do you have six or more drinks on one occasion?Never 01/23/2024Overall Financial Resource Strain (CARDIA)AnswerDate RecordedHow hard is it for you to pay for the very basics like food, housing, medical care, and heating?Not very hard01/23/2024HQ-2AnswerDate RecordedPatient Health Questionnaire-2 Yshvt404Finhighland ridge hospital [place] of Occupational Health - Occupational Stress QuestionnaireAnswerDate RecordedDo you feel stress - tense, restless, nervous, or anxious, or unable to sleep at night because yourmind is troubled all the time - these days?Rather much01/23/2024Exercise Vital Sign AnswerDate RecordedOn average, how many days per week do you engage in moderate to strenuous exercise (like a brisk walk)?7 days01/23/2024On average, how many minutes do you engage in exercise at this level?10 min01/23/2024Hunger Vital SignAnswerDate RecordedWithin the past 12 months, you worried that your food would run out before you got the money to buymore.Never true01/23/2024Within the past 12 months, the food you bought just didn't last and you didn't have money to get more.Never true01/23/2024RAPARE - TransportationAnswerDate RecordedIn the past 12 months, has lack of transportation kept you from medical appointments or from getting medications?Patient mjcuuawz67/03/2024In the past 12 months, has lack of transportation kept you from meetings, work, or from getting things needed for daily living?No01/23/2024Housing Stability Vital Sign AnswerDate RecordedIn the last 12 months, was there a time when you were not able to pay the mortgage or rent on time?No01/23/2024In the past 12 months, how many times have you moved where you were living?t any time in the past 12 months, were you homeless or living in a fpc (including now)?No 01/23/2024CommentsNoSex and Gender InformationValueDate RecordedSex Assigned at BirthNot on fileLegal LwnKvrfbo88/15/2023 7:02 PM EDTGender Identity Not on fileSexual OrientationNot on file Last Filed Vital Signs Vital SignReadingTime TakenCommentsBlood Ldtwvtoe358/6227009/03/2024 10:33 AM EDT Vhfpq37066/20/2024 10:38 AM MCBIscyriblezh99.7 ??C (98 ??F)02/09/2024 10:38 AM ESTRespiratory Ymwd139104/11/2023 10:38 AM ESTOxygen Kdatvxusqs11%02/09/2024 10:38 AM ESTInhaled Oxygen Concentration--Zdfiyd597 kg (268 lb 8 oz)09/03/2024 10:33 AM QDLRwintr316.9 cm (5' 1 )02/09/2024 10:38 AM ESTBody Mass Index50.73 02/09/2024 10:38 AM EST Plan of Treatment Health MaintenanceDue DateLast DoneCommentsPneumococcal Vaccine: Pediatrics (0 to 5 Years) and At-Risk Patients (6 to 64 Years) (1 of 2 - PCV)11/13/2014COVID- 19 Vaccine (1 - 2023- season)2024Influenza Vaccine (#1)2024 12/08/2017, 12/31/2015, 11/27/2014, Additional history exists Insurance Care Teams Team MemberRelationshipSpecialtyStart DateEnd Date Lamont Blair MD [address] [place] [id number] [facility]4/
--- OUTSIDE RECORDS SUMMARY | 2024-12-26 09:49 | XMS_ITS | Clinical Summary ---
Author Organization [facility] Address [address] [place] [address], [address] [place] [address] Care Team Providers Care Hydraulic Mechanic Name Role Phone Angélica Weber Pamela HECK - HAIRSPRING FABRICATION SUPERVISOR Primary Care Provider [phone] Allergies Active AllergyReactionsCriticalityNoted SjmnUvtwyclfJftuvixstpVdlti38/04/2021 Propranolol HclHives,Other (See Comments)12/24/2020 Migrianes JtcjgjsqvydztpYdqoz47/04/2021arbamazepineOther (See Comments)12/24/2020 anxiety KgmjmrrlxwqcDxwci80/04/2021 Medications MedicationSigDispense QuantityRefillsLast FilledStart DateEnd DateStatus SUMAtriptan (IMITREX) 100 MG tablet Take 100 mg by mouth 2 times daily as needed for MigraineActive diazePAM (VALIUM) 5 MG tablet Take 5 mg by mouth every 6 hours as needed for Anxiety.Active venlafaxine (EFFEXOR XR) 75 MG extended release capsule Take 75 mg by mouth dailyActive lamoTRIgine (LAMICTAL) 25 MG tablet Take 2 tablets by mouth daily 30 tablet ctive FLUoxetine (PROZAC) 20 MG capsule Take 60 mg by mouth daily10/20/2021iscontinued(Stop Taking at Discharge) gabapentin (NEURONTIN) 600 MG tablet Take 300 mg by mouth 3 times daily.10/20/2021iscontinued(Stop Taking at Discharge) Active Problems ProblemNoted DateDiagnosed DatePsychogenic nonepileptic miaadbi4410/20/2021 Seizure-like tmkefuej07/30/2022eizure sumyvnmo05/30/2022 Social History Tobacco UseTypesPacks/DayYears UsedDateSmoking Tobacco: NeverSmokeless Tobacco: NeverAlcohol UseStandard Drinks/WeekCommentsNot Currently0 (1 standard drink = 0.6 oz pure alcohol)CommentsNoSex and Gender InformationValueDate RecordedSex Assigned at BirthNot on fileLegal NdwSnlhhe02/13/2013 12:07 AM EST Gender IdentityNot on fileSexual OrientationNot on file Last Filed Vital Signs Vital SignReadingTime TakenCommentsBlood Wxfjzoew547/0132310/20/2021 12:00 PM EDT Szeck9231 12:00 PM JSQMzmlmsukuto99.8 ??C (98.2 ??F)10/20/2021 8:00 AM EDTRespiratory Ssfd221710/20/2021 12:00 PM EDTOxygen Dhqdrrluca03%10/20/2021 12:00 PM EDTInhaled Oxygen Concentration--Weight--Height--Body Mass Index-- Plan of Treatment Not on file Insurance Advance Directives * Full Code (Latest Code Status on File) Date ActivatedDate InactivatedComments10/19/2021 12:27 PM10/20/2021 4:12 PM * Full Code Date ActivatedDate InactivatedComments10/19/2021 12:23 PM10/19/2021 12:27 PM Care Teams Team MemberRelationshipSpecialtyStart DateEnd Date Angélica Weber, CONFLICT RESOLUTION PROFESSIONAL - HAIRSPRING FABRICATION SUPERVISOR [address] [place] [address] PCP - GeneralNurse Idzfdfghrujz44/4/21
--- OUTSIDE RECORDS SUMMARY | 2024-12-26 09:49 | XMS_ITS | Encounter Summary ---
Author Organization [facility] Sys tem Address [facility] [id number] [address] [place] [address] Care Team Providers Care Trapeze Performer Name Role Phone Corine Gold MD Primary Care Provider [phone] Reason for Visit * ReasonOnset DateCommentsPrior Nvzysfguskbbm18/28/2025Dupixent Encounter Details DateTypeDepartmentCare Team (Latest Contact Info)Iwawrawqocc70/28/2025Telephone [facility] [address] [place] [address] Heraclio Jovel [facility] Prior Authorization (Dupixent ) Social History Tobacco UseTypesPacks/DayYears UsedDateSmoking Tobacco: NeverSmokeless Tobacco: NeverAlcohol UseStandard Drinks/WeekCommentsNot Currently0 (1 standard drink = 0.6 oz pure alcohol)[facility] UtilitiesAnswerDate RecordedIn the past 12 months has the [employer], gas, oil, or water [employer] threatened to shut off services in your [...] care, and heating?Not hard at all04/08/2024PHQ-2AnswerDate RecordedTotal [id number] - TransportationAnswerDate RecordedIn the past 12 months, [...] a part of a household?No04/08/2024hildcareAnswerDate RecordedChildcareUnknown 08/01/2018EmploymentAnswerDate TspwlupsGvdoydgfvyPoshuzp53/12/2019Hunger ScreeningAnswerDate RecordedWithin the past 12 months we worried whether our food would run out before we got money to buy more.Never True12/20/2024Within the past 12 months the food we bought just didn't last and we didn't have money to get more.Never True12/20/2024Purpose - LifeAnswerDate RecordedPurpose and direction in txlxOsixgtg13/12/2021CommentsNoSex and Gender Information ValueDate RecordedSex Assigned at BirthNot on fileLegal JpbVgfxxs47/06/2015 11:52 AM EDTGender IdentityNot on fileSexual OrientationNot on filedocumented as of this encounter Miscellaneous Notes * Telephone Encounter - Heraclio Jovel RPH - 12/17/2024 2:25 PM EDT Name of Drug: Dupixent 300mg/2mL auto-injector Type of Request: New Prescription New Insurance: yes Prescription Number: [id number] Provider: Christoph HERNANDEZ Team will address request within 24 hours of receipt. If patient needs medication within 48 hours, please send high priority. * Telephone Encounter - Katelynn Ramires - 12/17/2024 2:25 PM EDT Medication name, strength & form: Dupixent 300MG/2ML auto-injectors Pen Diagnosis: Moderate persistent asthma, Insurance: [place] Medicaid Date/Time submitted: 12/17/24 - via Electronic submission via electronic PA. PA Cohen: [id number] Please note: Patient's pharmacy benefit may take up to 72 hours to review PA and make a determination. * Telephone Encounter - Katelynn Ramires - 12/17/2024 2:25 PM EDT Medication name, strength & form: Dupixent 300MG/2ML auto-injectors Pen Diagnosis: Moderate persistent asthma Insurance: [place] Medicaid PA decision: Denied PA/ Reason for denial: Clinical criteria has not been met Coverage for Asthma is provided when the member meets the following requirement: Preferred medications will be approved for patients with uncontrolled asthma symptoms and/or exacerbations despite at least 30 days adherence to therapy with: Medium dose preferred ICS/LABA (inhaled corticosteroid/long-acting beta agonist) inhaler (patients 6 years and older) including: Advair Diskus 250/50, Symbicort 160/4.5 and Dulera 100/5 OR medium dose preferred ICS/LABA (inhaled corticosteroid/long-acting beta agonist) inhaler including: Advair HFA 115/21, Advair Diskus 250/50, Symbicort 160/4.5 and Dulera 100/5 with tiotropium or high dose ICS/LABA (patients 12 years and older) including: Advair HFA 230/21, Advair Diskus 500/50 and Dulera 200/5. Next Steps: Appeal * Telephone Encounter - Heraclio Jovel RPH - 12/17/2024 2:25 PM EDT Clinical Pharmacist has reviewed denial and has determined to proceed with appeal for Dupixent medication. Letter of medical necessity has been prepared and has been uploaded into media tab. Next Steps: PA Team will submit prior authorization within 24 hours and update patient's chart oncefinal determination has been received from insurance. * Telephone Encounter - Katelynn Ramires - 12/17/2024 2:25 PM EDT 12/19/2024 at 10:05 AM - Appeal faxed to [employer] at [phone] Status Check - Pending review * Telephone Encounter - Katelynn Ramires - 12/17/2024 2:25 PM EDT 12/20/2024 at 11:37 AM - Called [employer] at [phone] and entered provider's NPI when prompted. Per the updated automated system, provider's must enter their social security number or seven digit medicaid ID number to authenticate. Silver Solderer used [facility]'s medicaid number: [id number] and was unable to authenticate, unable to bypass system. Silver Solderer will try again following business day. Status Check - Pending review * Telephone Encounter - Katelynn Ramires - 12/17/2024 2:25 PM EDT 12/24/2024 at 3:36 PM - Called [employer] at [phone] and s/w rep Rubina. Advised there have been3 appeals received: 1 on 12/19 and two on 12/23. and can take up to 15 business days. TAT 01/10/2025 Status Check - Pending review documented in this encounter Plan of Treatment DateTypeDepartmentCare Team (Latest Contact Info)Mhekcmeabzi53/18/2025 3:15 PM ESTOffice Visit [facility] [address] [facility] [place] [phone] Corine Gold MD [address] [place] [address] 01/30/2025 8:00 PM ESTClinical Support [facility] - Sleep Disorders [address] [place] [phone] Corine Gold MD [address] [place] [address] 02/27/2025 8:00 PM ESTClinical Support [facility] - Sleep Disorders [address] [place] [phone] Corine Gold MD [address] [place], [place] [phone] 03/25/2025 9:45 AM ESTOffice Visit [facility]Sleep Medicine [address] [phone] Mariah Peña DO [address] [phone] documented as of this encounter Goals GoalPatient Goal TypeAssociated ProblemsRecent ProgressPatient-Stated?Author home Tamiko Thompson RN Note: Evaluation of progress towards goal: Patient stated goal is to return home with [facility] for assistance with wound care documented as of this encounter Visit Diagnoses Not on filedocumented in this encounter Additional Health Concerns AssessmentNoted TimePHQ-9 Depression Total Score: 2:59 PM EDT documented as of this encounter Care Teams Team MemberRelationshipSpecialtyStart DateEnd Date Corine Gold MD [address] [place], [place] [phone] PCP - GeneralInternal Medicine03/25/24documented as of this encounter
--- OUTSIDE RECORDS SUMMARY | 2024-12-26 09:49 | XMS_ITS | Encounter Summary ---
Author Organization [facility] tem Address [id number] [address] [place] [address] Care Team Providers Care Developing Machine Tender Name Role Phone Corine Gold MD Primary Care Provider [phone] Reason for Visit * ReasonOnset DateCommentsSleep Lab12/12/2024omp PSG/PAP Encounter Details DateTypeDepartmentCare Team (Latest Contact Info)Loegvztfcmv99/23/2025Telephone [facility] - Sleep Disorders [address] [place] [address] Corine Gold MD [address] [place] [phone] Sleep Lab (Comp PSG/PAP) Social History Tobacco UseTypesPacks/DayYears UsedDateSmoking Tobacco: NeverSmokeless Tobacco: NeverAlcohol UseStandard Drinks/WeekCommentsNot Currently0 (1 standard drink = 0.6 oz pure alcohol)[facility] UtilitiesAnswerDate RecordedIn the past 12 months has the [employer], gas, oil, or water [employer] threatened to shut off services in your [...] care, and heating?Not hard at all04/08/2024PHQ-2AnswerDate RecordedTotal [id number] - TransportationAnswerDate RecordedIn the past 12 months, [...] a part of a household?No04/08/2024hildcareAnswerDate RecordedChildcareUnknown 08/01/2018EmploymentAnswerDate FhfjtoxvInxmvfsameNmuliuk70/12/2019Hunger ScreeningAnswerDate RecordedWithin the past 12 months we worried whether our food would run out before we got money to buy more.Never True12/20/2024Within the past 12 months the food we bought just didn't last and we didn't have money to get more.Never True12/20/2024Purpose - LifeAnswerDate RecordedPurpose and direction in ufwpOfsplry10/12/2021CommentsNoSex and Gender Information ValueDate RecordedSex Assigned at BirthNot on fileLegal QdeIprbxw29/06/2015 11:52 AM EDTGender IdentityNot on fileSexual OrientationNot on filedocumented as of this encounter Miscellaneous Notes * Telephone Encounter - Vielka Hussein - 12/12/2024 10:57 AM EDT 12/10 Order received 12/12 Called PT YAZAN to schedule sleep study. Comp Order and 12/10/24 MMarisol Dawkinsf Epic Notes * Telephone Encounter - Vielka Hussein - 12/12/2024 10:57 AM EDT 12/16 2nd call to PT LM to schedule sleep study. Returned call, left message Order Deferred * Telephone Encounter - Vielka Hussein - 12/12/2024 10:57 AM EDT Scheduled Psg at [facility] on 01/30/25 Scheduled PAP at [facility] on 02/28/24 Confirmation Ross Vierad Ashli for approval [place] Medicaid Comp Order and 12/10/24 Francisco Epic Notes * Telephone Encounter - Ghazala Cornelius MD - 12/12/2024 10:57 AM EDT Ok for PSG at [facility] due to BMI High risk for hypoventilation Already established with Dr. Peña Ok for CPAP if qualifies on PSG documented in this encounter Plan of Treatment DateTypeDepartmentCare Team (Latest Contact Info)Vkaeedkqned98/18/2025 3:15 PM ESTOffice Visit [facility] [address] [place] [phone] Corine Gold MD [address] [place] [address] 01/30/2025 8:00 PM ESTClinical Support [facility] - Sleep Disorders [address] [place] [phone] Corine Gold MD [address] [place], [place] [address] [phone] 02/27/2025 8:00 PM ESTClinical Support [facility] - Sleep Disorders [address] [place] [phone] Corine Gold MD [address] [place], [place] [address] [place] [address] 03/25/2025 9:45 AM ESTOffice Visit [facility] [address] [phone] Mariah Peña, [address] [address] documented as of this encounter Goals GoalPatient Goal TypeAssociated ProblemsRecent ProgressPatient-Stated?Author home Tamiko Thompson RN Note: Evaluation of progress towards goal: Patient stated goal is to return home with [facility] for assistance with wound care documented as of this encounter Visit Diagnoses Not on filedocumented in this encounter Additional Health Concerns AssessmentNoted TimePHQ-9 Depression Total Score: 2:59 PM EDT documented as of this encounter Care Teams Team MemberRelationshipSpecialtyStart DateEnd Date Corine Gold MD [address] [place], [place] [phone] PCP - GeneralInternal Medicine03/25/24documented as of this encounter
--- OUTSIDE RECORDS SUMMARY | 2024-12-26 09:55 | XMS_ITS | CCD ---
Author Organization [facility] CliniSyvt Care Team Providers Care Coil Taper Name Role Phone Abdifatah Brady (Historical) Primary Care Provide r Unavailable Kuns AUTO PAINTER - NURSE'S AIDES TEACHER, Derik Santiago Primary Care Provider DERIK WEBER Primary Care Unavailable KEVEN CHING Attending Unavailable Kuns AUTO PAINTER - NURSE'S AIDES TEACHER, Derik Santiago Primary Care Provider LUCILA MOTA Attending Unavailable PAYKINGS Referring Unavailable DERIK WEBER Primary Care Unavailable LUCILA MOTA Admitting Unavailable [...] MANJINDER Admitting Unavailable PATRICIA WALSH Consulting Unavailable [facility], DR GOMEZ Primary Care Unavailable HAY ., DR HARMAN Attending Unavailable HAY ., DR HARMAN Admitting Unavailable NEWSTEWART, NICHOLAS Consulting Unavailable UNLU, SINDY Consulting Unavailable ROOPA ., DR GUTIERREZ Admitting Unavailable ROOPA ., DR GUTIERREZ Consulting Unavailable [facility] Primary Care Unavailable ROOPA ., DR GUTIERREZ Attending Unavailable KUNS, DR DERIK Santiago Primary Care Unavailable ROOPA ., DR GUTIERREZ Admitting Unavailable ROOPA ., DR GUTIERREZ Attending Unavailable ROOPA ., DR GUTIERREZ Consulting Unavailable ROOPA ., DR GUTIERREZ Admitting Unavailable ROOPA ., DR GUTIERREZ Attending Unavailable NADERER, DR LAMONT Garcia Primary Care Unavailable [facility] Primary Care Unavailable HAY ., [...] DR GUTIERREZ Attending Unavailable ROOPA ., DR GUTIERRZE Consulting Unavailable REQUEST, DR NONE LISTED Primary Care Unavaila ble AGUBOSIM, BARON Consulting Unavailable ROOPA ., DR GUTIERREZ Procedure Practitioner Unavail able KRYSTIN HERNADEZ Consulting Unavailable LUCIEKLEBER Consulting Unavailable DORMINOOSKSHARDA MEI Consulting Unavailable ALECIA ., DENNIS Admitting Unavailable ALECIA ., DENNIS Attending Unavailable MISC, DR GOMEZ Primary Care Unavailable HAY ., DR HARMAN Consulting Unavailable RIZZO, ANKUR Consulting Unavailable ALECIA ., DENNIS Consulting Unavailable KUNS, DR DERIK Santiago Primary Care Unavailable ROOPA ., DR UGTIERREZ Admitting Unavailable ROOPA ., DR GUTIERREZ Attending Unavailable COELHO, MARIPOSA Consulting Unavailable LESLY, BLUE Primary Care Unavailable HAY ., DR HARMAN Attending Unavailable HAY ., DR HARMAN Consulting Unavailable HAY ., DR HARMAN Admitting Unavailable BRUNODOOT, NELI Consulting Unavailable Abdifatah Brady (Historical) Primary Care Provide r Unavailable Lamont Blair MD Primary Care Provider [phone] Lamont Blair MD Primary Care Provider Corine Gold MD Primary Care Provider [phone] Coirne Gold MD Primary Care Provider Unavailable Primary Care Provider Unavailabl e Unallocated , [place] Provider Primary Care [facility] Corine Gold MD Primary Care Provider Unavail able CORINE GOLD Primary Care Unavailable GIFTY RENO Referring Unavailable GIFTY RENO Attending Unavailable Unavailable Primary Care Provider Unavailabl e ZAY BLAS Attending Unavailable ZAY BLAS Attending Unavailable ZAY BLAS Attending Unavailable LAMONT BLAIR Attending Unavailable ZAY BLAS Attending Unavailable ROOPA, ZAY Attending Unavailable LAMONT BLAIR Attending Unavailable ROOPA, ZAY Attending Unavailable LAMONT BLAIR Attending Unavailable LAMONT BLAIR Attending Unavailable LAMONT BLAIR Attending Unavailable ROOPA, ZAY Attending Unavailable ROOPA, ZAY Attending Unavailable Dariusz Estrada Admitting Unavailable Dariusz Estrada Attending Unavailable Lamont Blair Primary Care Unavailable Ramsey Maloney Admitting Unavailab le Ramsey Maloney Attending Unavailab le NON STAFF Primary Care Unavailable RAIZA SHIELDS Attending Unavailable LEPE, CURTIS Attending Unavailable LEPE, CURTIS Attending Unavailable LEPE, CURTIS Attending Unavailable LEPE, CURTIS Referring Unavailable HAMDAN, RAIZA Attending Unavailable GREEN, KOLI Referring Unavailable GREEN, SAGAR Attending Unavailable GREEN, KOLI Referring Unavailable GREEN, KOLI Referring Unavailable LEPE, CURTIS Attending Unavailable GREEN, KOLI Referring Unavailable SELF Referring Unavailable BASIL CORNELIUS Attending Unavailable SELF Referring Unavailable BIDDLECOM, SUZAN FRASER Referring Unava ilable ОЛЬГА SHABAZZ Attending Unavailable BIDDLECOM, SUZAN FRASER Referring Unava ilable BIDDLECOM, SUZAN FRASER Referring Unava ilable LEPE, CURTIS Attending Unavailable BIDDLECOM, SUZAN FRASER Referring Unava ilable Lamont Blair MD Primary Care Provider [phone] Unallocatscott MORENO Noms Provider Primary Care Provi mahsa Lamont Blair MD Unavailable Allergies Allergy ClassificationReported Allergen(s)Allergy TypeDate of OnsetReaction(s) FacilityAnti-Epileptic Agents (1 source)levETIRAcetamDrug Svkqunc29-37-6554GbkyejxElhlfmwcp Clinic Work Phone: Cephalosporins (antibiotic) (1 source)CephalexinDrug Yqmcjvf79-39-3027RihcEzomvmftd ClinicDextromethorphan / Pyrilamine (1 source)Dextromethorphan / PyrilamineDrug Xgpbupm14-67-0435ZkafwZugpbmify Clinic Work Phone: Dihydroergotamine (1 source)DihydroergotamineDrug Vanrces56-97-6515GixbrwprryjVqwzbepok Clinic DOPamine Antagonists (1 source)MetoclopramideDrug Dchhmzf93-73-9917UhbsiemdkhhExbuiqjre Clinic Macrolides (antibiotic) (1 source)AzithromycinDrug Pqfdebx87-33-8429Nwmkr: See [facility] vortioxetine (1 source)vortioxetineDrug Tmbwcsy81-69-2836DvyygKjucegfgk Clinic (20 sources)Azithromycin; Translations: [AZITHROMYCIN]Drug Vqfiyae94-69-3293 Hives, Other: See [facility] (20 sources)carBAMazepineDrug Eftbgbs81-66-9777Iuhpj (See Comments)[facility] (20 sources)Cephalexin; Translations: [CEPHALEXIN]Drug Flowmwq19-81-1518Ubybu, RashMerCity Emergency Hospital (20 sources)Metoclopramide; Translations: [METOCLOPRAMIDE]Drug Ifkekcv64-72-2042 Hives, Intolerance, Unknown, Rash, Other (See Comments)[facility] (20 sources)PropranololDrug Axseptw70-96-5928Yypoz, Other (See Comments)[facility] (20 sources)Adhesive Tape-Silicones; Translations: [ADHESIVE TAPE-SILICONES]Drug Iqpzrjx67-38-8863EmknGuuhtugml Clinic (20 sources)Dextromethorphan / Pyrilamine; Translations: [PYRILAMINE-DEXTROMETHORPHAN]Drug Npetany62-40-1675AhmstMyatefpfq Clinic Work Phone: (20 sources)vortioxetine; Translations: [VORTIOXETINE]Drug Laywzlv23-89-7114 [facility] Work Phone: (20 sources)Dihydroergotamine; Translations: [DIHYDROERGOTAMINE]Drug Allergy 27-60-0635Rqveusrpgck, GI intolerance, GI Disturbance, [facility] (1 source)AzithromycinDrug AllergyThe [facility] (1 source)bee venomDrug allergy (disorder)The [facility] (1 source)CephalexinDrug AllergyThe [facility] (1 source)DesonideDrug AllergyThe [facility] (1 source)IothalamateDrug AllergyThe [facility] (2 sources)Propranolol; Translations: [PROPRANOLOL]Drug Vdvincf45-79-5363Gre [facility] (1 source)[place] DMDrug allergy (disorder)74-35-0692Cbo [facility] (20 sources)levETIRAcetam; Translations: [LEVETIRACETAM]Drug Dyqijhm36-00-0706 Itching, [facility] Work Phone: (1 source)ValproateDrug Lemoihe46-61-6942XklgvZwtkphapa Clinic Work Phone: (20 sources)busPIRoneDrug Rhsuqqf04-18-8262MggpmSATK Healthcare Work Phone: (20 sources)CarbamazepineAllergy to oqbvnzflp20-28-0086PjnuugeQRWD Healthcare (20 sources)CiprofloxacinDrug Vjmbtpy48-01-4073YejffOPDM Healthcare (20 sources)ClarithromycinAllergy to tafgmnxdv96-23-2153GN intoleranceNOMS Healthcare (20 sources)ClindamycinDrug Offvvvw44-69-6928Vsxhobr, HivesNODE Healthcare (20 sources)DextromethorphanDrug Zhoisxh76-01-5536GbiueERTA Healthcare (20 sources)Dextromethorphan / PyrilamineDrug Wvnagxn62-56-9922IvfpmIHJX Healthcare (20 sources)Honey bee venomAllergy to lwhipyiye71-61-4686DerbwowSDOL Healthcare (20 sources)LevetiracetamPropensity to adverse yvlhxrcws13-98-7972TbyvmwuOKRA Healthcare (20 sources)PropranololDrug Urgoexy53-25-6558Wlgog, Other: See CommentsNONorthwest Medical Center (20 sources)vortioxetineDrug Tnmdiir73-42-3707LvxnlQNDV Healthcare (20 sources)OtherAllergy to gtfxtopdg27-32-1960KyqrnACBH Healthcare (20 sources)Wound Dressing AdhesiveDrug Nkyrdzh92-48-3208SuquRDOI Healthcare (20 sources)Prochlorperazine; Translations: [PROCHLORPERAZINE]Drug Allergy 61-45-7345Dgrllrubrrn, AnxietyParkwood Hospital (20 sources)Adhesive agentPropensity to adverse reactions to gfoz97-95-4177WvoyLewis County General Hospital System (20 sources)DexamethasoneDrug Mjwrkbd02-00-5948EojzrWmyXypnmr Health System (20 sources)MetoclopramideDrug Dyxmfmi15-68-8666JhglozpAscension [facility] (20 sources)Bee Venom Protein (Honey Bee)Propensity to adverse reactions to drug 77-34-7647SkjlhdqagalChaIjdfyb Health System (20 sources)eptinezumab; Translations: [EPTINEZUMAB-[facility]]Drug Xdypfqd72-41-8074 Rash, ItchingParkwood Hospital (6 sources)Adhesive agentPropensity to adverse reactions to hfth64-07-1560BlhrBetsy Johnson Regional Hospital (1 source)AzithromycinDrug Rqhiljz86-44-6361JkmsofutoThe [facility] (1 source)CephalexinDrug Xagrolh26-61-4976UnpsydofrThe [facility] (1 source)levETIRAcetamDrug Teyrxof18-41-4091FxvlldmbmThe [facility] (1 source)MetoclopramideDrug Mnhagit80-63-6047KntghtpjfThe [facility] (1 source)ProchlorperazineDrug Ejohakz37-64-7197NzthrhijdThe [facility] (5 sources)HaloperidolDrug Fpcchzw65-40-8275KpvkugxnvpdjxwMisEucfrr Health System (4 sources)AmoxicillinDrug Txfvpli49-34-2429Hgero, DiarrheaProMedica Health System (4 sources)Amoxicillin / ClavulanateDrug Fsmeofs73-45-6703Duvva, Diarrhea [facility] Medications Current Medications MedicationDrug Class(es)DatesSig (Normalized)Sig (Original)[id number] 200 actuat albuterol 0.09 mg/actuat metered dose inhaler (20 sources)beta2-Adrenergic AgonistStart: 16-45-7615jmbz 2 puff(s) by mouth every four hours as neededalbuterol (VENTOLIN HFA) 90 mcg/actuation inhaler Indications: Moderate persistent asthma, unspecified whether complicated INHALE TWO PUFFS BY MOUTH EVERY 4 HOURS NEEDED 18 g 12/19/2024 ActiveStart: 05-27-2024 End: 22-22-0514nuqk 2 puff(s) by mouth every four hours as neededalbuterol (VENTOLIN HFA) 90 mcg/actuation inhaler Indications: Moderate persistent asthma, unspecified whether complicated INHALE TWO PUFFS BY MOUTH EVERY 4 HOURS NEEDED 18 g 11 09/30/2024 ActiveStart: 83-01-8098zqjy 2 puff(s) by inhalation every four hoursalbuterol HFA 90 mcg/act inhaler Inhale 2 puffs every 4 (four) hours if needed 05/27/2024 ActiveStart: 10-64-4196dibm 3 mL by inhalation four times daily as needed for wheezingalbuterol (PROVENTIL,VENTOLIN) 2.5 mg /3 mL (0.083 %) nebulizer solution Indications: Moderate asthma with acute exacerbation, unspecified whether persistent Inhale 3 mL (2.5 mg total) by nebulization 4 (four) times a day as needed for wheezing. 360 mL 10 03/20/2024 ActiveStart: 64-85-4558wjrdrjbct (2.5 MG/3ML) 0.083% nebulizer solution Inhale 2.5 mg 4 (four) times a day as needed 03/20/2024 ActiveStart: 12-12-2023 End: 53-76-0219ftjj 2 puff(s) by inhalation every four hours for wheezing albuterol HFA 90 mcg/act inhaler Indications: Severe persistent asthma without complication (CMS/HCC) Inhale 2 puffs every 4 (four) hours if needed for wheezing or shortness of breath 8.5 g 3 12/12/2023 02/28/2024 DiscontinuedStart: 55-22-7809vedq 2 puff(s) by inhalation every six hours as needed for wheezing albuterol sulfate 90 mcg/actuation breath activated powder inhaler Inhale 2 Puffs as instructed every 6 hours as needed for wheezing/shortness of breath. 08/16/2023 ActiveStart: 03-04-2023 End: 78-65-5503msttgdqrw (2.5 MG/3ML) 0.083% nebulizer solution Indications: Severe persistent asthma without complication (CMS/HCC) Take 3 mL (2.5 mg) by nebulization every 6 (six) hours if needed for wheezing 75 mL 1 03/04/2023 02/28/2024 DiscontinuedStart: 03-04-2023 End: 81-73-0685pmnk 2 puff(s) by inhalation every four hours for wheezing albuterol HFA 90 mcg/act inhaler Indications: Severe persistent asthma without complication (CMS/HCC) Inhale 2 puffs every 4 (four) hours if needed for wheezing 8.5 g 3 11/06/2023 12/06/2023 ActiveStart: 06-07-2022 End: 15-35-8305zrse 2 puff(s) by mouth every four hours as neededalbuterol (VENTOLIN HFA) 90 mcg/actuation inhaler Indications: Moderate persistent asthma, unspecified whether complicated INHALE TWO PUFFS BY MOUTH EVERY 4 HOURS NEEDED 18 g 3 05/01/2024 05/24/2024 Discontinued (Reorder)Start: 06-07-2022 End: 33-21-2592ietc 0.63 mg by inhalation every six hours as needed for wheezing and dyspnea and dyspneaalbuterol (ACCUNEB) 0.63 mg/3 mL nebulizer solution Indications: SOB (shortness of breath) Inhale 3mL (0.63 mg total) by nebulization every 6 (six) hours as needed for wheezing. 75 mL 1 06/07/2022 Discontinuedamitriptyline hydrochloride 100 mg oral tablet (5 sources)Tricyclic AntidepressantStart: 55-70-7412ovxh 1 tablet by mouth at bedtimeamitriptyline (Elavil) 100 MG tablet Take 100 mg by mouth at bedtime 06/24/2024 Activeamoxicillin 500 mg oral capsule (1 source)Penicillin-class AntibacterialStart: 10-24-2024 End: 65-51-1918unrk 1 capsule by mouth three times dailyamoxicillin (AMOXIL) 500 mg capsule Indications: Left otitis media, unspecified otitis media type Take 1 capsule (500 mg total) by mouth 3 (three) times a day for 7 days. 21 capsule 10/24/2024 10/31/2024 Activeamoxicillin 875 mg / clavulanate 125 mg oral tablet (6 sources)Penicillin-class AntibacterialStart: 05-21-2024 End: 57-36-0558fcsr 1 tablet by mouth once in the morningamoxicillin-pot clavulanate (AUGMENTIN) 875-125 mg per tablet Indications: Moderate persistent asthma with acute exacerbation , Acute pansinusitis, recurrence not specified Take 1 tablet by mouth in the morning and 1 tablet before bedtime. Do all this for 10 days. 20 tablet 05/21/2024 05/31/2024 ActiveStart: 04-10-2024 End: 98-12-0258zkhd 1 tablet by mouth every eight hoursamoxicillin-pot clavulanate (AUGMENTIN) 875-125 mg per tablet Take 1 tablet by mouth every 8 (eight) hours for 7 days. 21 tablet 04/10/2024 04/17/2024 Activebaclofen 10 mg oral tablet (20 sources)gamma-Aminobutyric Acid-ergic AgonistStart: 04-25-2024 End: 37-28-0077otjg 1 tablet by mouth once dailybaclofen (LIORESAL) 10 mg tablet Indications: Muscle spasm TAKE 1 TABLET BY MOUTH NIGHTLY 30 tablet3 10/02/2024 ActiveStart: 11-10-2023 End: 38-14-8793axmw 1 tablet by mouth in the morning, then take 1 tablet by mouth in the evening, then take 1 tablet by mouth at bedtimebaclofen (Lioresal) 10 MG tablet Indications: Pelvic pain in female Take 1 tablet (10 mg) by mouth i n the morning and 1 tablet (10 mg) in the evening and 1 tablet (10 mg) before bedtime. 90 tablet 2 11/10/2023 ActiveStart: 07-14-2023 End: 48-43-9739xiyo 1 tablet by mouth in the morning, then take 1 tablet by mouth in the evening, then take 1 tablet by mouth at bedtimebaclofen (Lioresal) 10 MG tablet Indications: Pelvic pain in female Take 1 tablet (10 mg) by mouth i n the morning and 1 tablet (10 mg) in the evening and 1 tablet (10 mg) before bedtime. 90 tablet 2 07/14/2023 ActiveStart: 11-22-2021 End: 06-12-7627eddr 1 tablet by mouth three times daily at bedtimebaclofen (Lioresal) 10 MG tablet Indications: Pelvic pain in female TAKE 1 TABLET BY MOUTH THREE TIMES DAILY (IN THE MORNING, IN THE EVENING and BEFORE bedtime) 90 tablet 2 02/15/2024 02/28/2024 DiscontinuedComment on above:Take 10 mg by mouth three times a day as needed.benzonatate 200 mg oral capsule (16 sources)Non-narcotic AntitussiveStart: 12-12-2023 End: 10-74-2999vipt 1 capsule by mouth three times daily as needed for cough benzonatate (Tessalon) 200 MG capsule Indications: COVID-19 Take 1 capsule (200 mg) by mouth 3 (three) times a day as needed for cough Do not crush or chew. 30 capsule 1 01/24/2024 02/28/2024 Discontinuedonabotulinumtoxina 200 unt injection (20 sources)Acetylcholine Release InhibitorStart: 17-23-3834mpywjoszlspn toxin type A 200 Units injection (BOTOX)budesonide 0.5 mg/ml inhalation suspension (2 sources)CorticosteroidStart: 48-81-9969jeyl 2 mL by inhalation in the morning budesonide (PULMICORT) 1 mg/2 mL nebulizer solution Indications: Moderate persistent asthma withoutcomplication Inhale 2 mL (1 mg total) by nebulization in the morning. 60 mL 6 12/17/2024 Tgfeou18 hr carBAMazepine 100 mg extended release oral tablet (7 sources)Mood StabilizerStart: 13-19-7763snlg 2 tablets by mouth in the morning, then take 2 tablets by mouth every twelve hours at bedtimecarBAMazepine XR (TEGretol XR) 100 mg 12 hr tablet Take 2 tablets (200 mg total) by mouth in the morning and 2 tablets (200 mg total) before bedtime. 120 tablet 11/25/2024 ActiveStart: 46-47-6786dkwh 1 tablet by mouth in the morning, then take 1 tablet by mouth every twelve hours at bedtimecarBAMazepine XR (TEGretol XR) 100 MG 12 hr tablet Take 100 mg by mouth in the morning and 100 mg before bedtime. 08/28/2024 Activecetirizine hydrochloride 10 mg oral tablet (20 sources)Histamine-1 Receptor AntagonistStart: 06-08-2022 End: 86-72-1997lmth 1 tablet by mouth in the morningcetirizine (ZyrTEC) 10 mg tablet Take 1 tablet (10 mg total) by mouth in the morning. 30 tablet 06/08/2022 Activechlorzoxazone 500 mg oral tablet (20 sources)Muscle RelaxantStart: 07-10-2023 End: 45-61-8895fhcf 1 tablet by mouth twice daily as needed for muscle spasms chlorzoxazone (Parafon Forte) 500 MG tablet Take 500 mg by mouth 2 (two) times a day as needed for muscle spasms 05/31/2024 ActiveStart: 10-12-2022 End: 84-58-8022aoxp 1 tablet by mouth three times daily as needed for headache chlorzoxazone (PARAFON FORTE DSC) 500 mg tablet Indications: Chronic migraine w/o aura, not intractable, w/o stat migr , Cervicalgia , Migraine without aura and without status migrainosus, not intractable Take 1 tablet by mouth up to three times a day as needed, immediately at onset of headache forrescue. 30 tablet 0 12/09/2022 Active End: 19-08-3767azif 1 tablet by mouth four times daily as neededchlorzoxazone (PARAFON FORTE) 500 mg tablet Take 1 tablet (500 mg total) by mouth 4 (four) times a day as needed. 04/25/2024 DiscontinuedComment on above:Take 1 tablet by mouth up to three times a day as needed, immediately at onset of headache for rescue.clindamycin 300 mg oral capsule (2 sources)Lincosamide AntibacterialStart: 04-02-2024 End: 02-63-1691svaw 1 capsule by mouth in the morning, then take 1 capsule by mouth in the evening, then take 1 capsule by mouth at bedtimeclindamycin (Cleocin) 300 MG capsule Indications: Visit for wound check Take 1 capsule (300 mg) by mouth in the morning and 1 capsule (300 mg) in the evening and 1 capsule (300 mg) before bedtime. Doall this for 10 days. 30 capsule 04/02/2024 04/12/2024 Activedexamethasone 6 mg oral tablet (3 sources)CorticosteroidStart: 12-12-2023 End: 51-50-0636vbrg 1 tablet by mouth once dailydexAMETHasone (Decadron) 6 MG tablet Indications: COVID-19 Take 1 tablet (6 mg) by mouth Daily for 6 days 6 tablet 12/12/2023 01/09/2024 Discontinueddexamethasone 1 mg/ml / tobramycin 3 mg/ml ophthalmic suspension (11 sources)Aminoglycoside Antibacterial, CorticosteroidStart: 05-12-2023 End: 28-52-7806rszy 1 drop(s) into the eye(s) every six hourstobramycin- dexAMETHasone (Tobradex) ophthalmic suspension instill 1 drop into both eyes every 6 hours for 7 days 05/12/2023 01/09/2024 DiscontinueddiazePAM 5 mg oral tablet (20 sources)BenzodiazepineStart: 03-28-2024 End: 68-42-9333jlevjFAV (VALIUM) tablet 5 mgStart: 11-23-2021 End: 40-28-3300mqyxfLZU (VALIUM) 10 mg tablet 11/23/2021 Activetake 0.5 tablet by mouth at bedtimediazePAM (VALIUM) 10 mg tablet Take 0.5 tablets (5 mg total) by mouth in the morning and at bedtime. Active End: 71-14-6358hocjpBMG (Valium) 2 MG tablet Take by mouth every 8 (eight) hours if needed for anxiety. 01/09/2024iscontinuedtake 1 tablet by mouth every six hours as needed for anxietydiazePAM (VALIUM) 5 MG tablet Take 5 mg by mouth every 6 hours as needed for Anxiety. 0 Suspendeddoxycycline hyclate 100 mg oral tablet (6 sources)Tetracycline-class DrugStart: 01-23-2024 End: 55-60-3405viwzdpzxqsw (Vibra-Tabs) 100 MG tablet Indications: Mild persistent asthma with (acute) exacerbation (CMS/HCC) Take 1 tablet (100 mg) by mouth in the morning and 1 tablet (100 mg) before bedtime. Do all this for 10 days. Take with a full glass of water and do not lie down for at least 30 minutes after.. 20 tablet 01/23/2024 02/09/2024 Yasejbivulfdgmq201066 0.3 ml EPINEPHrine 1 mg/ml auto-injector (20 sources)alpha-Adrenergic Agonist, beta-Adrenergic Agonist, Catecholamine Start: 21-49-6114LKLBZTZiudz (EPIPEN) 0.3 mg/0.3 mL auto-injector Indications: Allergic reaction, sequela 0.3 mL (0.3 mg total) by other route as needed (exposure to allergen). 2 each 1 08/26/2024 ActiveStart: 06-07-2022 End: 58-05-6416JXNJOMMtqpd (EPIPEN) 0.3 mg/0.3 mL auto-injector 0.3 mL (0.3 mg total) by other route as needed (exposure to allergen). 2 each 1 06/07/2022 04/25/2024 Discontinuedestradiol 1 mg oral tablet (20 sources)EstrogenStart: 05-15-2024 End: 31-06-8669bfnc 1 tablet by mouth in the morningestradioL (ESTRACE) 1 mg tablet Indications: Menopausal symptoms Take 1 tablet (1 mg total) by mouth in the morning. 30 tablet 3 05/15/2024 ActiveStart: 04-15-2024 End: 36-58-3985tkomstnhD (VIVELLE-DOT) 0.05 mg/24 hr Indications: Menopausal symptoms Place 1 patch on the skin 2 (two) times a week. 8 patch 04/15/2024 04/25/2024 DiscontinuedStart: 04-11-2024 End: 55-03-5438ritbvsejJ (VIVELLE-DOT) 0.0375 mg/[address] 1 patch on the skin 2 (two) times a week. 5 patch 2 04/11/2024 04/15/2024 Discontinued (Dose adjustment)Start: 04-09-2024 End: patch, transdermal, 2 times weekly (Once per day on Monday), First dose on Mon04/09/24 at 0915, Remove previous patch, if present, before applying new. Remove for MRI. Place on trunk of body (preferably abdomen). Rotate application sites allowing a 1-week interval between applications chicho particular site.Start: 06-29-2023 End: 54-54-1540citk 1 tablet by mouth once daily in the morningestradiol (Estrace) 1 MG tablet Indications: Vaginal discharge , Pelvic pain in female take 1 tablet by mouth every morning 30 tablet 3 06/29/2023 02/28/2024 Discontinuedfluticasone propionate 0.05 mg/actuat metered dose nasal spray (20 sources)CorticosteroidStart: 18-37-9592dkxi 1 spray(s) nasal route every other dayfluticasone propionate (FLONASE) 50 mcg/actuation nasal spray Indications: Seasonal allergic rhinitis, unspecified trigger administer 1 spray IN EACH NOSTRIL EVERY OTHER DAY 16 g 2 06/10/2024 ActiveStart: 84-11-6332dujw 1 spray(s) nasal route once dailyfluticasone (Flonase) 50 MCG/ACT nasal spray Administer 1 spray into each nostril Daily 06/10/2024 ActiveStart: 06-06-2024 End: 71-78-7061yxzj 1 spray(s) nasal route every other dayfluticasone propionate (FLONASE) 50 mcg/actuation nasal spray Indications: Seasonal allergic rhinitis, unspecified trigger Administer 1 spray into each nostril every other day. 18.2 mL 2 06/06/2024 06/10/2024 Zkpqvxgvocuhxpxiehtkrld-qtgltnfiu-tdzhhrjg (TRELEGY ELLIPTA) 200-62.5-25 mcg blister with device (20 sources)Start: 03-20-2024 End: 56-96-7007brbf 1 puff(s) by inhalation in the morning nnpttxbsimt-kmamykxol-imgowbqe (TRELEGY ELLIPTA) 200-62.5-25 mcg blister with device Indications: Moderate asthma with acute exacerbation, unspecified whether persistent Inhale 1 puff in the morning.60 each 03/20/2024 12/10/2024 DiscontinuedStart: 14-99-5470ltyv 1 puff(s) by inhalation in the morning xuhxrtzidrg-jwrvwlfxt-stgjhfms (TRELEGY ELLIPTA) 200-62.5-25 mcg blister with device Indications: Moderate asthma with acute exacerbation, unspecified whether persistent Inhale 1 puff in the morning.60 each 03/20/2024Start: 03-20-2024 take 1 puff(s) by inhalation in the clwqcuccbazttflpae-bmviusygq-qwaapsqf (TRELEGY ELLIPTA) 200-62.5-25 mcg blister with device Indications: Moderate asthma with acute exacerbation, unspecified whether persistent Inhale 1 puff in the morning.60 each 11 03/20/2024 Fczieymsurfjcgwbf-igbnqysad-dbrtabel (TRELEGY ELLIPTA) 200-62.5-25 mcg blister with device (5 sources)Start: 62-92-2470ikke 1 puff(s) by mouth in the morning qnhwthaftmk-pabwazisz-schxemcw (TRELEGY ELLIPTA) 200-62.5-25 mcg blister with device Indications: Moderate asthma with acute exacerbation, unspecified whether persistent INHALE 1 PUFF BY MOUTH IN THEMORNING 60 each 12/10/2024 Mtpmga74 actuat formoterol fumarate 0.005 mg/actuat / mometasone furoate 0.1 mg/actuat metered dose inhaler (20 sources)Corticosteroid, beta2-Adrenergic AgonistStart: 04-26-2023 End: 94-58-4490wtqn 2 puff(s) by inhalation in the morningDulera 100-5 MCG/ACT inhaler Inhale 2 puffs in the morning and 2 puffs before bedtime. 04/26/2023 Discontinuedfurosemide 40 mg oral tablet (10 sources)Loop DiureticStart: 01-23-2024 End: 48-73-7060xgne 1 tablet by mouth once daily as needed for edemafurosemide (Lasix) 40 MG tablet Indications: Generalized edema Take 1 tablet (40 mg) by mouth Dailyas needed (Edema) 30 tablet 3 01/23/2024 02/28/2024 Rzcvgnwwmtst16 hr guaiFENesin 600 mg extended release oral tablet (9 sources)Start: 10-24-2024 End: 99-36-0464jyll 1 tablet by mouth onceguaiFENesin (MUCINEX) 600 mg tablet extended release 12hr Take 1 tablet (600 mg total) by mouth every 12 (twelve) hours for 10 days. 20 tablet 10/24/2024 11/03/2024 ActiveStart: 04-21-2022 End: 33-89-0864socl 1 tablet by mouth onceguaiFENesin (MUCINEX) 600 mg tablet extended release 12hr Take 1 tablet (600 mg total) by mouth every 12 (twelve) hours. 60 tablet 1 04/21/2022 03/25/2024 Discontinued (Therapy completed) Hydrocortisone (3 sources)CorticosteroidStart: 09-25-2023 End: 96-53-4770Xnwkxxtbrwadhv 2 % cream Indications: Rash Apply 1 application topically in the morning and 1 application before bedtime. 28 g 09/25/2023 10/25/2023 Activehydrocortisone 10 mg/ml / neomycin 3.5 mg/ml / polymyxin b 46482 unt/ml otic solution (1 source)Aminoglycoside Antibacterial, Polymyxin-class Antibacterial, CorticosteroidStart: 10-24-2024 End: 79-64-1268miylhiyw-polymyxin-HC (CORTISPORIN) otic solution Indications: Left otitis media, unspecified otitis media type Administer 3 drops into the left ear 3 (three) times a day for 7 days. 10 mL Active ibuprofen 800 mg oral tablet (20 sources)Nonsteroidal Anti-inflammatory DrugStart: 53-21-4561mbhl 1 tablet by mouth every six hours as needed for painibuprofen 800 MG tablet Take 800 mg by mouth every 6 (six) hours if needed for moderate pain 04/15/2024 ActiveStart: 04-08-2024 End: 84-93-4035vmuq 1 tablet by mouth every six hours as needed for lqvq181 mg, oral, Every 6 hours PRN, moderate pain - pain scale 4-6, Starting on Mon04/08/24 at 1825, Look-alike/sound-alike medication - verify indication for use. Take/Give with food or milk.Start: 02-10-2024 End: 51-82-3121pwwu 1 tablet by mouth three times dailyibuprofen (MOTRIN) 800 mg tablet Indications: Post-op pain Take 1 tablet (800 mg total) by mouth 3 ( three) times a day. 21 tablet 04/15/2024 Activeketoconazole 20 mg/ml medicated shampoo (20 sources)Azole AntifungalStart: 07-58-7845fogbrbmtdhfh (NIZORAL) 2 % shampoo Apply 1 Application topically 2 (two) times a week. Apply to damp skin, lather, leave on 5 minutes, and rinse 120 mL 04/25/2024 ActiveStart: 11-26-2021 End: 24-63-9003yllkcluhyxqv (NIZORAL) 2 % shampoo APPLY TO AFFECTED AREA(S) LATHER AND LEAVE IN PLACE FOR 5 MINUTES AND THEN RINSE OFF WITH WATER. DO THIS 2 TIMES A WEEK FOR 4 WEEKS 120 mL 11/26/2021 04/25/2024 Ebjpsxajkvyk732 actuat levalbuterol 0.045 mg/actuat metered dose inhaler (9 sources)beta2-Adrenergic AgonistStart: 00-19-9585ooww 1-2 puff(s) by inhalation every four hours as needed for wheezinglevalbuterol (XOPENEX HFA) 45 mcg/actuation inhaler Indications: Moderate persistent asthma without complication Inhale 1-2 puffs every 4 (four) hours as needed for wheezing. 15 g 11 12/20/2024 ActiveStart: 01-27-2022 End: 45-75-1918osmm 1-2 puff(s) by inhalation every four hours as needed for wheezinglevalbuterol (XOPENEX HFA) 45 mcg/actuation inhaler Inhale 1-2 puffs every 4 (four) hours as neededfor wheezing. 15 g 1 01/27/2022 03/25/2024 Discontinued (Therapy completed)lidocaine 0.05 mg/mg topical ointment (20 sources)Antiarrhythmic, Amide Local AnestheticStart: 93-03-9858hurtqpaxo (XYLOCAINE) 5 % ointment Indications: Post-operative pain Apply 1 Application topically as needed for pain. 35.44 g 04/24/2024 ActiveStart: 10-20-2021 lidocaine 4 % external patch 1 patchloperamide hydrochloride 2 mg oral capsule (1 source)Opioid AgonistStart: 35-91-4017swnzplbeuf (IMODIUM) capsule 2 mg loratadine 10 mg oral tablet (19 sources)Start: 19-00-2087aavd 1 tablet by mouth once daily as needed loratadine (CLARITIN) 10 mg tablet Indications: Seasonal allergic rhinitis, unspecified trigger Take 1 tablet (10 mg total) by mouth daily as needed for allergies. 90 tablet 1 06/06/2024 Nfgldn03 hr loratadine 10 mg / pseudoephedrine sulfate 240 mg extended release oral tablet (6 sources)alpha-Adrenergic AgonistStart: 09-97-8827axnp 1 tablet by mouth once in the morning, then take 1 tablet by mouth every twenty-four hoursloratadine- pseudoephedrine (CLARITIN-D 24-hour) 10-240 mg per 24 hr tablet Indications: Moderate persistent asthma without complication , Seasonal allergic rhinitis, unspecified trigger Take 1 tabletby mouth in the morning. 30 tablet 2 12/20/2024 ActiveStart: 05-21-2024 End: 99-94-6332uvdf 1 tablet by mouth once in the morning, then take 1 tablet by mouth every twenty-four hoursloratadine-pseudoephedrine (CLARITIN-D 24-hour) 10-240 mg per 24 hr tablet Indications: Acute pansinusitis, recurrence not specified Take 1 tablet by mouth in the morning for 21 days. 21 tablet 202406/11/2024 ActiveLumateperone Tosylate (Caplyta) 10.5 MG capsule (11 sources) End: 25-47-1611gtyf 1 capsule by mouth in the morningLumateperone Tosylate (Caplyta) 10.5 MG capsule Take 10.5 mg by mouth in the morning. 01/09/2024 Dis continuedtake 1 capsule by mouth in the morningLumateperone Tosylate (Caplyta) 10.5 MG capsule Take 10.5 mg by mouth in the morning. Activemagnesium oxide 400 mg oral capsule (20 sources)Start: 08-49-2478fgvg 1 capsule by mouth once daily at bedtime magnesium oxide 400 mg magnesium cap Take 1 capsule by mouth daily at bedtime. 90 capsule 3 06/04/2024 ActiveStart: 07-10-2023 End: 77-55-8160lmiy 1 capsule by mouth once daily at bedtimemagnesium oxide 400 mg magnesium cap Take 1 capsule by mouth daily at bedtime. 90 capsule 3 07/10/19 24 05/31/2024 DiscontinuedComment on above:magnesium 400 mg (as magnesium oxide) capsulemethocarbamol 500 mg oral tablet (3 sources)Muscle RelaxantStart: 09-12-2022 End: 45-47-3550jmue 1 tablet by mouth twice dailymethocarbamol (ROBAXIN) 500 mg tablet Take 1 tablet by mouth twice daily. 60 tablet 2 09/12/2022 10/12/2022 Discontinued (Lack of Efficacy)Comment on above:Take 1 tablet by mouth twice daily.metroNIDAZOLE 500 mg oral tablet (3 sources)Nitroimidazole AntimicrobialStart: 07-01-2024 End: 56-61-6188vsxw 1 tablet by mouth in the morningmetroNIDAZOLE (Flagyl) 500 MG tablet Indications: BV (bacterial vaginosis) Take 1 tablet (500 mg) by mouth in the morning and 1 tablet (500 mg) before bedtime. Do all this for 7 days. Do not drink alcohol while taking this medication. 14 tablet 07/01/2024 07/08/2024 ActiveStart: 04-08-2024 End: 18-50-0455053 mg, intravenous, at 100 mL/hr, Administer over 60 Minutes, Once, On Mon04/08/24 at 1450, For 1 dose, Look-alike/sound-alike medication - verify indication for use., Indication: Intra-abdominalmineral oil 0.03 mg/mg / petrolatum 0.94 mg/mg ophthalmic ointment (1 source)Start: 43-59-3825jjyxe petrolatum-mineral oiL (SYSTANE NIGHTTIME) 94-3 % ointment Indications: Watery eyes Administer 1 Application (0.25 inches total) to both eyes nightly. 3.5 g 1 12/20/2024 Activemupirocin 0.02 mg/mg topical ointment (13 sources)RNA Synthetase Inhibitor AntibacterialStart: 07-44-3514subkxplpt (BACTROBAN) 2 % ointment Indications: Eye infection, bilateral Apply 1 Application topically in the morning and 1 Application before bedtime. 22 g 1 07/24/2024 ActiveStart: 05-02-2024 End: 48-84-5535recsscgnj (BACTROBAN) 2 % ointment Indications: Postoperative infection, unspecified type, subsequent encounter Apply 1 Application topically in the morning and 1 Application before bedtime. Do all this for 7 days. 30 g 05/02/2024 05/02/2024 Discontinued (Reorder)Nirmatrelvir&Ritonavir 300/100 (Paxlovid, 300/100,) 20 x 150 MG & 10 x 100MG tablet therapypack (3 sources)Start: 12-12-2023 End: 75-48-4775Uryebzfbdmfu&Ritonavir 300/100 (Paxlovid, 300/100,) 20 x 150 MG & 10 x 100MG tablet therapypack Indications: COVID-19 Take 1 each by mouth See administration instructions 1 each 12/12/2023 01/09/2024 DiscontinuedStart: 96-80-8769Kiajpjlltrik&Ritonavir 300/100 (Paxlovid, 300/100,) 20 x 150 MG & 10 x 100MG tablet therapypack Indications: COVID-19 Take 1 each by mouth See administration instructions 1 each 12/12/2023 Activeomeprazole 40 mg delayed release oral capsule (20 sources)Proton Pump InhibitorStart: 03-20-2024 End: 01-22-7004wfjq 1 capsule by mouth at bedtimeomeprazole (PriLOSEC) 40 mg capsule Indications: Gastroesophageal reflux disease without esophagitis Take 1 capsule (40 mg total) by mouth in the morning and at bedtime. 60 capsule 3 12/17/2024 ActiveStart: 01-27-2022 End: 54-01-6830fkri 1 capsule by mouth in the morningomeprazole (PriLOSEC) 20 mg capsule Take 1 capsule (20 mg total) by mouth in the morning. 30 capsule 1 01/27/2022 04/08/2024 Discontinued (Therapy completed)ondansetron (ZOFRAN-ODT) disintegrating tablet 4 mg (1 source)Start: 33-53-1695yaapsreuzvi (ZOFRAN-ODT) disintegrating tablet 4 mg12 hr orphenadrine citrate 100 mg extended release oral tablet (20 sources)Muscle RelaxantStart: 03-17-2023 End: 15-46-9582naog 1 tablet by mouth twice daily as needed, then take 1 tablet by mouth every twelve hours as neededorphenadrine (Norflex) 100 MG 12 hr tablet Take 100 mg by mouth 2 (two) times a day as needed 04/26/2023 02/28/2024 DiscontinuedStart: 95-26-1660cnho 1 tablet by mouth every twelve hours as needed orphenadrine ER (NORFLEX) 100 mg tablet Take 1 tablet by mouth two times a day as needed. 30 tablet5 12/12/2022 ActiveComment on above:Take 1 tablet by mouth two times a day as needed.oxyCODONE hydrochloride 5 mg oral tablet (20 sources)Opioid AgonistStart: 04-29-2024 End: 89-88-9550ecjf 1 tablet by mouth every six hours as needed for pain oxyCODONE (ROXICODONE) 5 mg immediate release tablet Indications: Postoperative surgical complication involving genitourinary system associated with genitourinary procedure, unspecified complication Take 1 tablet (5 mg total) by mouth every 6 (six) hours as needed for pain for up to 3 days. Max Daily Amount: 20 mg 12 tablet 04/29/2024 05/02/2024 ActiveStart: 03-28-2024 End: 38-52-2128pdiq 1 tablet by mouth every four hours as needed for pain oxyCODONE (ROXICODONE) 5 mg immediate release tablet Indications: Postoperative surgical complication involving genitourinary system associated with genitourinary procedure, unspecified complication Take 1 tablet (5 mg total) by mouth every 4 (four) hours as needed for pain for up to 5 days. Max Daily Amount: 30 mg 30 tablet 04/10/2024 04/15/2024 Discontinued (Reorder)polyethylene glycol 400 4 mg/ml / propylene glycol 3 mg/ml ophthalmic solution (2 sources)Start: 70-64-3317fzr 400-propylene glycol, PF, (SYSTANE ULTRA, PF,) 0.4-0.3 % dropperette Indications: Watery eyes Administer 1 drop to both eyes 3 (three) times a day. 30 each 1 12/20/2024 ActiveStart: 12-20-2024 End: 38-76-9473nay 400-propylene glycol, PF, (SYSTANE ULTRA, PF,) 0.4-0.3 % dropperette Indications: Watery eyes Administer 1 drop to both eyes as needed (for watery eyes and burning). 30 each 1 12/20/2024 12/20/2024 Discontinued polymyxin b 83827 unt/ml / trimethoprim 1 mg/ml ophthalmic solution (3 sources)Dihydrofolate Reductase Inhibitor Antibacterial, Polymyxin-class AntibacterialStart: 66-82-7795fkzumrrallwv-polymyxin b (Polytrim) ophthalmic solution 07/24/2024 ActiveStart: 07-24-2024 End: 95-14-0849knwbomunjnht-polymyxin B (POLYTRIM) 10,000 unit- 1 mg/mL drops Indications: Eye infection, bilateral Administer 1 drop to both eyes in the morning and 1 drop at noon and 1 drop in the evening and 1 drop before bedtime. Do all this for 5 days. 10 mL 07/24/2024 07/29/2024 Activemicroencapsulated potassium chloride 20 meq extended release oral tablet (2 sources)Start: 03-26-2024 End: 52-94-7072tham 1 tablet by mouth in the morningpotassium chloride (KLOR-CON M 20) 20 MEQ CR tablet Take 1 tablet (20 mEq total) by mouth in the morning for 2 days. 2 tablet 03/26/2024 03/28/2024 ActivepredniSONE 10 mg oral tablet (18 sources)Start: 22-48-5106kalmjvTAJY (DELTASONE) 10 mg tablet Indications: Moderate persistent asthma without complication Take 3 tablets once daily for 3 days, then 2 tablets once daily for 3 days then 1 tablet daily 19 tablet 12/20/2024 ActiveStart: 10-24-2024 End: 34-53-3010biap 2 tablets by mouth in the morningpredniSONE (DELTASONE) 20 mg tablet Indications: Mild asthma with exacerbation, unspecified whether persistent Take 2 tablets (40 mg total) by mouth in the morning for 5 days. 10 tablet 10/24/2024 10/29/2024 ActiveStart: 05-21-2024 End: 23-87-3743knar 1 tablet by mouth in the morningpredniSONE (DELTASONE) 20 mg tablet Indications: Moderate persistent asthma with acute exacerbationTake 1 tablet (20 mg total) by mouth in the morning for 5 days. 5 tablet 05/21/2024 05/26/2024 ActiveStart: 01-23-2024 End: 16-39-0130aynd 1 tablet by mouth once dailypredniSONE (Deltasone) 50 MG tablet Indications: Mild persistent asthma with (acute) exacerbation (CMS/HCC) Take 1 tablet (50 mg) by mouth Daily for 6 days 6 tablet 01/23/2024 01/29/2024 ActiveStart: 72-55-0144uchd 6 tablets by mouth once daily, then take 4 tablets by mouth once daily, then take 2 tablets bymouth once daily, then take 1 tablet by mouth once dailypredniSONE (Deltasone) 10 MG tablet Indications: Acute bronchitis due to other specified organisms 6 PO daily x 3 days, 4 PO daily x 3 days, 2 PO daily x 3 days, 1 PO daily x 3 days 39 tablet 11/15/2023 ActiveStart: 78-77-1685vdjs 6 tablets by mouth once daily, then take 4 tablets by mouth once daily, then take 2 tablets bymouth once daily, then take 1 tablet by mouth once dailypredniSONE (Deltasone) 10 MG tablet Indications: Acute bronchitis due to other specified organisms 6 PO daily x 3 days, 4 PO daily x 3 days, 2 PO daily x 3 days, 1 PO daily x 3 days 39 tablet 11/15/2023 ActiveStart: 10-10-2023 End: 30-78-0862gtak 6 tablets by mouth once daily, then take 4 tablets by mouth once daily, then take 2 tablets bymouth once daily, then take 1 tablet by mouth once dailypredniSONE (Deltasone) 10 MG tablet Indications: Acute bronchitis due to other specified organisms 6 PO daily x 3 days, 4 PO daily x 3 days, 2 PO daily x 3 days, 1 PO daily x 3 days 39 tablet 11/15/2023 01/09/2024 Discontinued progesterone 100 mg oral capsule (2 sources)ProgesteroneStart: 09-03-2024 End: 82-18-3598ufrj 1 capsule by mouth once dailyprogesterone (Prometrium) 100 MG capsule Indications: Hot flashes due to surgical menopause Take 1 capsule (100 mg) by mouth Daily 30 capsule 11 09/03/2024 09/03/2025 Activepromethazine hydrochloride 25 mg oral tablet (20 sources)PhenothiazineStart: 06-04-2024 End: 27-19-2423wwul 1 tablet by mouth every four hours as needed for nausea promethazine (PHENERGAN) 25 mg tablet Indications: Intractable chronic migraine without aura and without status migrainosus Take 1 tablet by mouth every 4 hours as needed. FOR NAUSEA 90 tablet 5 06/04/2024 ActiveStart: 08-18-2023 End: 52-81-7474rkyk 1 tablet by mouth every four hours as needed for nausea promethazine (PHENERGAN) 25 mg tablet Indications: Intractable chronic migraine without aura and without status migrainosus Take 1 tablet by mouth every 4 hours as needed. FOR NAUSEA 90 tablet 5 11/10/2023 05/31/2024 DiscontinuedStart: 05-13-2023 End: 21-46-1472rpnl 1 tablet by mouth every six hours as needed for nausea and vomitingpromethazine (PHENERGAN) 25 mg tablet Take 1 tablet (25 mg total) by mouth every 6 (six) hours as needed for nausea or vomiting. 15 tablet 08/10/2023 04/25/2024 DiscontinuedStart: 03-17-2023 End: 11-95-4937cbtp 1 tablet by mouth every six hours as neededpromethazine (Phenergan) 12.5 MG tablet Take 12.5 mg by mouth every 6 (six) hours if needed 04/02/2023 02/28/2024 DiscontinuedStart: 06-22-2022 End: 36-69-9117oexd 1 tablet by mouth every six hours as neededpromethazine (PHENERGAN) 12.5 mg tablet Take 1 tablet by mouth every 6 hours as needed. 90 tablet Active End: 59-53-9560zoth 25 mg rectal route every six hours as needed for nausea and vomitingpromethazine (Phenergan) 25 MG suppository Insert 25 mg into the rectum every 6 (six) hours if needed for nausea or vomiting ActiveComment on above:Take 12.5 mg by mouth every 6 hours as needed.Take 1 tablet by mouth every 6 hours as needed.72 hr scopolamine 0.0139 mg/hr transdermal system (20 sources)AnticholinergicStart: 25-34-0627mpblpjzogvx (TRANSDERM-SCOP) patch 1.5 mg/72 hr (delivers 1 mg over 3 days) Indications: Intractable chronic migraine without aura and with status migrainosus , Nausea Apply 1 Patch as directed every72 hours. APPLY 1 DISC BEHIND THE EAR AT LEAST 4 HOURS PRIOR TO EXPOSURE AND EVERY 3 DAYS NEEDED. 4 Patch 2 05/10/2024 ActiveStart: 03-18-2024 End: 05-25-4624czhao 1 dose transdermal route once dailyscopolamine (TRANSDERM- SCOP) 1 mg/[address] 1 patch on the skin every third day. 05/10/2024 Active scopolamine (Transderm-Scop) 1 mg/72 hr patch [address] 1 patch on the skin every 3rd (third) day Activeterconazole 4 mg/ml vaginal cream (1 source)Azole AntifungalStart: 01-15-2024 End: 46-00-4220abzpiqfuruj (Terazol 7) 0.4 % vaginal cream Indications: Yeast infection Insert 1 applicator into the vagina at bedtime for 7 days 45 g 01/15/2024 01/22/2024 Lglidm46 actuat tiotropium 0.29157 mg/actuat inhalation spray (20 sources)AnticholinergicStart: 04-26-2023 End: 83-72-8939Iibqirv Respimat 1.25 MCG/ACT inhaler inhale 2 puffs by mouth once daily 04/26/2023 02/28/2024 DiscontinuedtraMADol hydrochloride 50 mg oral tablet (8 sources)Opioid AgonistStart: 01-09-2024 End: 79-33-3214dild 1 tablet by mouth four times daily as needed for pain traMADol (Ultram) 50 MG tablet Indications: Pain, dental Take 1 tablet (50 mg) by mouth 4 (four) times a day as needed for severe pain for up to 7 days 28 tablet 01/22/2024 01/29/2024 Activeubrogepant 100 mg oral tablet (20 sources)Start: 05-03-2024 End: 80-21-6578wludxifyuw (UBRELVY) 100 mg tablet 05/03/2024 Activezavegepant (ZAVZPRET) 10 mg/actuation nasal spray (6 sources)Start: 44-59-5495bihgdndzyh (ZAVZPRET) 10 mg/actuation nasal spray Indications: Intractable chronic migraine withoutaura and with status migrainosus Use one nasal spray at migraine onset. May use once per 24 hours. 6 each 08/08/2024 8:59 AM EDT 08/02/2024 ActiveStart: 53-62-0839mohsidlnue (ZAVZPRET) 10 mg/actuation nasal spray Indications: Intractable chronic migraine withoutaura and with status migrainosus Use one nasal spray at migraine onset. May use once per 24 hours. 6 each 08/02/2024 ActiveZOLMitriptan 5 mg/actuat nasal spray (20 sources)Serotonin-1b and Serotonin-1d Receptor AgonistStart: 06-04-2024 ZOLMitriptan (ZOMIG) 5 mg nasal spray Use 1 [place] in the nose as needed at onset of migraine headache. If symptoms persist or return, may repeat dose in other nostril after 2 hours. Maximum of 2 sprays per 24 hours 12 each 06/04/2024 ActiveStart: 03-17-2023 End: 40-49-3058SFUHjgaabqmz (ZOMIG) 5 mg nasal spray Use 1 [place] in the nose as needed at onset of migraine headache. If symptoms persist or return, may repeat dose in other nostril after 2 hours. Maximum of 2 sprays per 24 hours 12 Each 5 01/30/2024 05/31/2024 DiscontinuedStart: 08-27-0569HNSNcpcoltgq (ZOMIG) 5 mg nasal spray Use 1 [place] in the nose as needed at onset of migraine headache. If symptoms persist or return, may repeat dose in other nostril after 2 hours. Maximum of 2 sprays per 24 hours 10 Each 2 06/24/2022 ActiveStart: 06-24-2022 take 1 spray(s) nasal route every twenty-four hours as neededZOLMitriptan (ZOMIG) 5 mg nasal spray Use 1 [place] in the nose as needed. SPRAY IN 1 NOSTRIL AT ONSET OF MIGRAINE HEADACHE. If symptoms persist or return, may repeat dose after 2 hours. Maximum: 5 mg/dose; 10 mg per 24 hours 10 Each 2 06/24/2022 ActiveComment on above:Use 1 [place] in the nose as needed. SPRAY IN 1 NOSTRIL AT ONSET OF MIGRAINE HEADACHE. If symptoms persist or return, may repeat dose after 2 hours. Maximum: 5 mg/dose; 10 mg per 24 hoursUse 1 [place] in the nose as needed at onset of migraine headache. If symptoms persist or return, mayrepeat dose in other nostril after 2 hours. Maximum of 2 sprays per 24 hours Completed/Discontinued Medications MedicationDrug Class(es)DatesSig (Normalized)Sig (Original)acetaminophen 500 mg oral tablet (20 sources)Start: 04-08-2024 End: 26-65-4913ikpt 1 tablet by mouth every six hours as needed for pain1,000 mg, oral, Every 6 hours PRN, mild pain - pain scale 1-3, Starting on Mon04/08/24 at 1825Start: 18-96-5597pwwk 2 tablets by mouth every six hours as needed for painacetaminophen (TYLENOL EXTRA STRENGTH) 500 mg tablet Take 2 tablets (1,000 mg total) by mouth every6 (six) hours as needed for pain. 30 tablet 2 03/28/2024 ActiveStart: 95-56-7359pmnf 1 tablet by mouth every six hours as needed Acetaminophen Extra Strength 500 MG tablet Take 500 mg by mouth every 6 (six) hours if needed (pain) 03/28/2024 ActiveStart: 21-89-0883hyoltdylxmgjo (TYLENOL) tablet 1,000 mgStart: 10-19-2021 End: 08-48-2584appyyxyiirhmq (TYLENOL) tablet 650 mgacetaminophen 300 mg / codeine phosphate 30 mg oral tablet (3 sources)Opioid AgonistStart: 04-04-2024 End: 89-27-1872abnh 1 tablet by mouth every six hours as neededacetaminophen- codeine (TYLENOL #3) 300-30 mg per tablet Take 1 tablet by mouth every 6 (six) hours as needed. 04/04/2024 04/15/2024 Discontinued (Alternate therapy) ARIPiprazole 10 mg oral tablet (8 sources)Atypical Antipsychotic End: 23-81-4505jzfx 1 tablet by mouth in the morningARIPiprazole (ABILIFY) 10 mg tablet Take 1 tablet (10 mg total) by mouth in the morning. 03/25/2024 Discontinued (Dose adjustment)cariprazine 4.5 mg oral capsule (4 sources)Atypical Antipsychoticcariprazine (VRAYLAR) 4.5 mg capsule Vraylar 4.5 mg capsule 0 ActiveComment on above:Vraylar 4.5 mg capsulecefTRIAXone (ROCEPHIN) 1,000 mg in sodium chloride 0.9 % 50 mL IVPB-MBP (1 source)Start: 04-08-2024 End: ,000 mg, intravenous, at 100 mL/hr, Administer over 30 Minutes, Once, On Mon04/08/24 at 1450, For 1 dose, Look-alike/sound-alike medication - verify indication for use. Do not co-administer with calcium-containing solutions such as Lactated Ringers., Indication: Intra-abdominalcyclobenzaprine hydrochloride 10 mg oral tablet (2 sources)Muscle Relaxant End: 40-05-1442gzbw 1 tablet by mouth three times dailycyclobenzaprine (FLEXERIL) 10 MG tablet Take 10 mg by mouth 3 times daily 0 10/20/2021 Discontinued(Stop Taking at Discharge)diphenhydrAMINE (11 sources)Histamine-1 Receptor AntagonistStart: 08-02-2024 End: mg, INTRAVENOUS, NEEDED, 2 doses, Starting on Mon08/02/24 at 1013, Until Mon08/02/24 at 1453,Sedation/Dystonia/Akathisia/Anxiety 3rd line Start: 05-02-2024 End: mg, INTRAVENOUS, NEEDED, 1 dose, Starting on Mon05/02/24 at 1156, Until Mon05/02/24 at 1200, Administer per hypersensitivity/anaphylaxis grading in nursing communicationStart: 04-09-2024 End: .5 mg, intravenous, Once, On Mon04/09/24 at 1100, For 1 dose, Look-alike/sound-alike medication -verify indication for use.Start: 04-08-2024 End: 27-27-423326 mg, intravenous, Once, On Mon04/08/24 at 1450, For 1 dose, Look-alike/sound-alike medication - verify indication for use.Start: 01-22-2024 End: 20-74-571413 mg, INTRAVENOUS, NEEDED, 2 doses, Starting on Mon01/22/24 at 1328, Until Mon01/22/24 at 1429,Sedation/Dystonia/Akathisia/Anxiety 3rd line Start: 01-19-2024 End: 50-30-243707 mg, INTRAVENOUS, NEEDED, 2 doses, Starting on Mon01/19/24 at 0909, Until Mon01/19/24 at 1012, Sedation/Dystonia/Akathisia/Anxiety 3rd lineStart: 01-17-2024 End: 65-57-078064 mg, INTRAVENOUS, NEEDED, 2 doses, Starting on Mon01/17/24 at 0815, Until Mon01/17/24 at 0935, Sedation/Dystonia/Akathisia/Anxiety 3rd lineStart: 01-05-2024 End: 61-55-509702 mg, INTRAVENOUS, NEEDED, 1 dose, Starting on Mon01/05/24 at 1327, Until Mon01/05/24 at 1330, Administer per hypersensitivity/anaphylaxis grading in nursing communicationStart: 01-05-2024 End: 80-30-453795 mg, INTRAVENOUS, NEEDED, 2 doses, Starting on Mon01/05/24 at 1235, Until Mon01/05/24 at 1559, Sedation/Dystonia/Akathisia/Anxiety 3rd lineStart: 10-13-2023 End: 84-51-170322 mg, INTRAVENOUS, NEEDED, 1 dose, Starting on Mon10/13/23 at 1308, Until Mon10/13/23 at 1310, Administer per hypersensitivity/anaphylaxis grading in nursing communicationStart: 12-24-2020 End: 35-36-4365bewjefjrasVCDWJ (BENADRYL) injection 50 mgdocusate sodium 50 mg / sennosides, longterm 8.6 mg oral tablet (11 sources)Start: 03-28-2024 End: 00-51-7619zyci 1 tablet by mouth at bedtimesennosides-docusate sodium (SENNA WITH DOCUSATE SODIUM) 8.6-50 mg Take 1 tablet by mouth in the morning and at bedtime. 30 tablet 1 03/28/2024 04/25/2024 Discontinued0.4 ml enoxaparin sodium 100 mg/ml prefilled syringe (1 source)Low Molecular Weight HeparinStart: 44-40-1049mzjona 40 mg by subcutaneous injection once daily40 mg, SubCUTAneous, DAILY, First dose on Mon10/19/21 at 1245, Until Discontinued Indication of Use: Prophylaxis-DVT/PE EPINEPHrine 0.01 mg/ml / lidocaine hydrochloride 10 mg/ml injectable solution (1 source)Antiarrhythmic, alpha-Adrenergic Agonist, beta-Adrenergic Agonist, Catecholamine, Amide Local AnestheticStart: 04-08-2024 End: mL, intradermal, Once, On Mon04/08/24 at 1805, For 1 dose, Look-alike/sound-alike medication - verify indication for use.eptinezumab-jjmr 100 mg in NaCl 0.9% 100 mL (VYEPTI) (4 sources)Start: 08-01-2024 End: 78-61-7688203 mg, INTRAVENOUS, at 200 mL/hr, Administer over 30 Minutes, ONCE, 1 dose, On Mon08/01/24 at 1100, EXP: Administer with 0.2 micron filter.Start: 05-02-2024 End: 98-38-1415084 mg, INTRAVENOUS, at 200 mL/hr, Administer over 30 Minutes, ONCE, 1 dose, On Mon05/02/24 at 1100, EXP: Administer with 0.2 micron filter.Start: 01-05-2024 End: mg, INTRAVENOUS, at 200 mL/hr, Administer over 30 Minutes, ONCE, 1 dose, On Mon01/05/24 at 1300, EXP: Administer with 0.2 micron filter.Start: 10-13-2023 End: mg, INTRAVENOUS, at 200 mL/hr, Administer over 30 Minutes, ONCE, 1 dose, On Mon10/13/23 at 1230, EXP: Administer with 0.2 micron filter.1 ml erenumab-aooe 140 mg/ml auto-injector (20 sources)Start: 07-10-2023 End: 17-27-1259lwmfdu 1 mL by subcutaneous injection every montherenumab-aooe (AIMOVIG AUTOINJECTOR) 140 mg/mL auto-injector Inject 1 mL subcutaneously once every month. Do not shake. 1 Each 07/10/2023 09/19/2023 DiscontinuedStart: 03-23-2023 End: 69-57-4143ptguvu 1 mL by subcutaneous injection every montherenumab-aooe (AIMOVIG AUTOINJECTOR) 70 mg/mL auto-injector Inject 1 mL subcutaneously once every month. Do not shake. 1 Each 07/10/2023 07/10/2023 DiscontinuedComment on above:Inject 1 mL subcutaneously once every month. Do not shake.2 ml famotidine 10 mg/ml injection (1 source)Histamine-2 Receptor AntagonistStart: 08-01-2024 End: 82-77-135709 mg, INTRAVENOUS, NEEDED, 1 dose, Starting on Meg 08/01/24 at 1056, Until Meg 08/01/24 at 1146, Heartburn, REFRIGERATEfluconazole 150 mg oral tablet (6 sources)Azole AntifungalStart: 07-01-2024 End: 58-68-9316oetg 1 tablet by mouth once, then take 1 tablet by mouth once fluconazole (Diflucan) 150 MG tablet Indications: Yeast infection Take 1 tablet (150 mg) by mouth 1(one) time for 1 dose This is a 1 time dose, take single tablet by mouth. 1 tablet 1 07/01/2024 07/01/2024 ExpiredStart: 05-21-2024 End: 81-13-1940nlnc 1 tablet by mouth oncefluconazole (DIFLUCAN) 150 mg tablet Indications: Antibiotic-induced yeast infection Take 1 tablet (150 mg total) by mouth once for 1 dose. 1 tablet 05/21/2024 05/21/2024 ActiveStart: 04-02-2024 End: 88-29-7388cgrd 1 tablet by mouth once, then take 1 tablet by mouth once fluconazole (Diflucan) 150 MG tablet Indications: Yeast infection Take 1 tablet (150 mg) by mouth 1(one) time for 1 dose This is a 1 time dose, take single tablet by mouth. 1 tablet 1 04/02/2024 04/02/2024 ExpiredStart: 01-24-2024 End: 69-87-0526ikpt 1 tablet by mouth oncefluconazole (Diflucan) 150 MG tablet Indications: Rash , Yeast dermatitis Take 1 tablet (150 mg) bymouth every 3rd (third) day for 2 doses 2 tablet 01/24/2024 01/28/2024 ActiveFLUoxetine 20 mg oral capsule (2 sources)Serotonin Reuptake Inhibitor End: 54-32-2345brja 3 capsules by mouth once dailyFLUoxetine (PROZAC) 20 MG capsule Take 60 mg by mouth daily 0 10/20/2021 Discontinued (Stop Taking at Discharge)30 actuat fluticasone furoate 0.1 mg/actuat / umeclidinium 0.0625 mg/actuat / vilanterol 0.025 mg/actuat dry powder inhaler (5 sources)Anticholinergic, Corticosteroid, beta2-Adrenergic Agonist End: 44-13-2210lqerjxhoxdl-umeclidin-vilanter (TRELEGY ELLIPTA) 100-62.5-25 mcg blister with device daily. 03/20/2024 Discontinued1.5 ml fremanezumab-vfrm 150 mg/ml auto-injector (12 sources)Start: 11-25-2020 End: 05-19-4601afhjpgpllaam-vfrm 225 mg/1.5 mL auto-injector Indications: Chronic mixed headache syndrome Inject 225 mg under the skin every 28 days. 1.5 mL 4 11/25/2020 03/25/2024 Discontinued (Therapy completed)Comment on above: Ajovy 225 mg/1.5 mL subcutaneous auto-injectorgabapentin 600 mg oral tablet (6 sources)Anti-epileptic AgentStart: 71-65-7136avwanqfefu (NEURONTIN) 600 mg tablet End: 40-29-0299actlyndtea (NEURONTIN) 600 MG tablet Take 300 mg by mouth 3 times daily. 0 10/20/2021 Discontinued (Stop Taking at Discharge)take 1 tablet by mouth once dailygabapentin (NEURONTIN) 600 MG tablet Take 600 mg by mouth nightly. 0 Activegadoteridol (PROHANCE) injection 20 mL (1 source)Start: 10-19-2021 End: 45-15-5184txjnczffjlj (PROHANCE) injection 20 mL1 ml galcanezumab-gnlm 120 mg/ml auto-injector (20 sources)Start: 09-27-2022 End: 20-21-4757ftgsni 1 mL by subcutaneous injection every monthgalcanezumab- gnlm (EMGALITY PEN) 120 mg/mL pen Inject 1 mL subcutaneously once every month. Do not shake. 1 Each 11 09/27/2022 11/10/2022 Discontinued (Course of therapy completed)Start: 09-27-2022 End: 83-29-5312vqcfah 2 doses by subcutaneous injection every monthgalcanezumab- gnlm 120 mg/mL subcutaneous pen injector (EMGALITY) Inject 2 Pens subcutaneously one time only for 1 dose. For first month only. Refrigerate. Do not shake. 2 Each 0 09/27/2022 3Discontinued (Course of therapy completed)Start: 73-78-6004rtppas 1 mL by subcutaneous injection every monthgalcanezumab-gnlm (EMGALITY PEN) 120 mg/mL pen Inject 1 mL subcutaneously once every month. Do not shake. 1 Each 2 06/24/2022 ActiveStart: 88-97-8548ofeokc 2 doses by subcutaneous injection every monthgalcanezumab-gnlm 120 mg/mL subcutaneous pen injector (EMGALITY) Inject 2 Pens subcutaneously one time only for 1 dose. For first month only. Refrigerate. Do not shake. 2 Each 0 06/24/2022 ActiveComment on above:Inject 1 mL subcutaneously once every month. Do not shake.Inject 2 Pens subcutaneously one time only for 1 dose. For first month only. Refrigerate. Do not shake.0.5 ml HYDROmorphone hydrochloride 1 mg/ml prefilled syringe (4 sources)Opioid AgonistStart: 04-08-2024 End: 32-60-5463awrv 1 mg intravenously every four hours as needed for pain1 mg, intravenous, Every 4 hours PRN, severe pain - pain scale 7-10, Starting on Mon04/08/24 at 1941, If IV push, administer over over 2 to 3 minutes. Look-alike/sound-alike medication - verify indication for use.Start: 04-08-2024 End: 95-82-7237hfah 0.5 mg intravenously once0.5 mg, intravenous, Once, On Mon04/08/24 at 2015, For 1 dose, If IV push, administer over over 2 to 3 minutes. Look-alike/sound-alike medication - verify indication for use.Start: 04-08-2024 End: mg, intravenous, Once, On Mon04/08/24 at 1625, For 1 dose, If IV push, administer over over 2 to 3 minutes. Look-alike/sound-alike medication - verify indication for use.iohexoL (OMNIPAQUE) 300 mg iodine/mL 100 mL (1 source)Start: 04-08-2024 End: 67-25-1271853 mL, intravenous, Once in imaging, contrast, Starting on Mon04/08/24 at 1521, For 1 dose, VESICANT (RED)iohexoL (OMNIPAQUE) 300 mg iodine/mL 30 mL (1 source)Start: 04-08-2024 End: 41-29-8758osym 30 mL by mouth once30 mL, oral, Once in imaging, contrast, Starting on Mon04/08/24 at 1335, For 1 dose, VESICANT (RED)1 ml ketorolac tromethamine 30 mg/ml injection (20 sources)Nonsteroidal Anti-inflammatory Drug, Cyclooxygenase InhibitorStart: 08-02-2024 End: mg, INTRAVENOUS, ONCE, 1 dose, On Mon08/02/24 at 1030, Ketorolac (Toradol) is indicated for the short-term (up to 5 days) management of moderately severe acute pain. Continuation of ketorolac (Toradol) beyond 5 days increases the risk of developing serious adverse events. Please verify the duration of therapy for ketorolac (Toradol).Start: 08-01-2024 End: 89-50-275684 mg, INTRAVENOUS, ONCE, 1 dose, On Meg 08/01/24 at 1130, Ketorolac (Toradol) is indicated for the short-term (up to 5 days) management of moderately severe acute pain. Continuation of ketorolac (Toradol) beyond 5 days increases the risk of developing serious adverse events. Please verify the duration of therapy for ketorolac (Toradol)Start: 62-82-3669vvct 1 tablet by mouth every eight hours as needed for painketorolac (Toradol) 10 MG tablet Take 10 mg by mouth every 8 (eight) hours if needed for mild pain 06/22/2024 Active Start: 39-08-3494aias 1 tablet by mouth every six hours as neededkeTORolac (TORADOL) 10 mg tablet Take 1 tablet by mouth every 6 hours as needed (severe migraine). 20 tablet 5 06/04/2024 ActiveStart: 05-02-2024 End: 17-86-766891 mg, INTRAVENOUS, ONCE, 1 dose, On Mon05/02/24 at 1200, Ketorolac (Toradol) is indicated for the short-term (up to 5 days) management of moderately severe acute pain. Continuation of ketorolac (Toradol) beyond 5 days increases the risk of developing serious adverse events. Please verify the duration of therapy for ketorolac (Toradol).Start: 05-02-2024 End: 53-96-7963kxUADjftc 30 mg injection (Toradol)Start: 04-09-2024 End: 60-46-081600 mg, intramuscular, Once, On Mon04/09/24 at 1100, For 1 dose, Look-alike/sound-alike medication -verify indication for use. Duration of therapy is not to exceed 5 days. Maximum recommended dose + 120mg/24 hours. Start: 01-22-2024 End: 60-40-228296 mg, INTRAVENOUS, ONCE, 1 dose, On 01/22/24 at 1330, Ketorolac (Toradol) is indicated for the short-term (up to 5 days) management of moderately severe acute pain. Continuation of ketorolac (Toradol) beyond 5 days increases the risk of developing serious adverse events. Please verify the duration of therapy for ketorolac (Toradol).Start: 01-19-2024 End: 54-74-305191 mg, INTRAVENOUS, ONCE, 1 dose, On Mon01/19/24 at 0930, Ketorolac (Toradol) is indicated for theshort-term (up to 5 days) management of moderately severe acute pain. Continuation of ketorolac (Toradol) beyond 5 days increases the risk of developing serious adverse events. Please verify the durat ion of therapy for ketorolac (Toradol).Start: 01-17-2024 End: 08-29-360612 mg, INTRAVENOUS, ONCE, 1 dose, On Mon01/17/24 at 0830, Ketorolac (Toradol) is indicated for theshort-term (up to 5 days) management of moderately severe acute pain. Continuation of ketorolac (Toradol) beyond 5 days increases the risk of developing serious adverse events. Please verify the durat ion of therapy for ketorolac (Toradol).Start: 01-05-2024 End: 48-85-338011 mg, INTRAVENOUS, ONCE, 1 dose, On Mon01/05/24 at 1330, Ketorolac (Toradol) is indicated for theshort-term (up to 5 days) management of moderately severe acute pain. Continuation of ketorolac (Toradol) beyond 5 days increases the risk of developing serious adverse events. Please verify the durat ion of therapy for ketorolac (Toradol)Start: 01-05-2024 End: 20-29-3029jzQQYurbn 30 mg injection (Toradol)Start: 10-13-2023 End: 90-70-971948 mg, INTRAVENOUS, ONCE, 1 dose, On Mon10/13/23 [...] levels INSTEAD of the opioid, if preferred: YesStart: 10-13-2023 End: 32-10-3748hkHVGwegi 30 mg injection (Toradol)Start: 05-14-2023 End: 94-01-0586unkq 1 tablet by mouth every eight hours as neededketorolac (Toradol) 10 MG tablet Take 1 tablet by mouth every 8 (eight) hours if needed 05/14/2023 02/28/2024 DiscontinuedStart: 05-08-2022 End: 27-69-9889khti 1 tablet by mouth every six hours as neededkeTORolac (TORADOL) 10 mg tablet Take 1 tablet by mouth every 6 hours as needed (severe migraine). 20 tablet 5 11/10/2023 05/31/2024 DiscontinuedStart: 12-24-2020 End: 22-32-4699babychpoj (TORADOL) injection 15 mgComment on above:Take 1 tablet by mouth every 6 hours as needed (severe migraine).Take 10 mg by mouth. lamoTRIgine 200 mg oral tablet (20 sources)Mood Stabilizer, Anti-epileptic AgentStart: 01-29-2024 End: 71-90-8858lulb 1 tablet by mouth in the morning, then take 1 tablet by mouth at bedtimelamoTRIgine (LaMICtal) 200 mg tablet Take 1 tablet (200 mg total) by mouth in the morning and 1 tablet (200 mg total) before bedtime. 01/29/2024 10/24/2024 Discontinued (Therapy completed)Start: 05-18-2023 End: 60-22-6680hjch 1 tablet by mouth at bedtimelamoTRIgine (LaMICtal) 200 MG tablet Take 1 tablet by mouth at bedtime 05/18/2023 01/09/2024 Discontinued Start: 02-23-2022 End: 94-04-8992ksttXJIzczd (LaMICtal) 150 mg tablet 100mg in am 150mg at HS 02/23/2022 03/25/2024 Discontinued (Dose adjustment)Start: 11-23-2021 End: 25-73-1601dyoyIPRbbwc (LAMICTAL) 150 mg tablet 11/23/2021 ActiveStart: 52-84-4845dldo 2 tablets by mouth once dailylamoTRIgine (LAMICTAL) 25 MG tablet Take 2 tablets by mouth daily 30 tablet 3 10/21/2021 ActiveStart: 10-19-2021 lamoTRIgine (LAMICTAL) tablet 50 mg End: 79-73-0400zddxBIDgdps (LaMICtal) 50 MG tablet,disintegrating disintegrating tablet Dissolve 2 tablets (100 mgtotal) on tongue in the morning. 03/25/2024 Discontinued (Dose adjustment)levETIRAcetam 250 mg oral tablet (3 sources)Start: 15-76-8680kcfSXZTVzfwpa (KEPPRA) 250 mg tablet Take 1 at bedtime. Can increase to bid after 2 weeks if bdsvny03 tablet 2 08/08/2022 ActiveComment on above:Take 1 at bedtime. Can increase to bid after 2 weeks if neededlithium carbonate 300 mg oral tablet (20 sources)Start: 04-08-2024 End: 45-65-9639942 mg, oral, Nightly, First dose on Mon04/08/24 at 2200, Food- Drug Interaction Education Required Look-alike/sound-alike medication - verify indication for use Maintain normal daily intakes of fluids and salt (sodium) Enteral Feeding: Mix solution with 10-30 mL water prior to administering in f eeding tubeStart: 06-13-2022 End: 59-76-3341hqmxbut carbonate 300 mg tablet 06/13/2022 ActiveStart: 50-55-0216ogpv 2 tablets by mouth once dailylithium carbonate 300 mg tablet Take 2 tablets (600 mg total) by mouth nightly. 01/17/2022 ActiveStart: 01-17-2022 End: 01-09-3842ucbbdfl carbonate 300 mg tablet 2 tablets (600 mg total). 01/17/2022 Active End: 67-00-1600hrfhpfv ER (Eskalith) 450 MG 12 hr tablet [place] 01/09/2024 Discontinued1 ml LORazepam 2 mg/ml injection (3 sources)BenzodiazepineStart: 04-08-2024 End: 66-54-1583dzaa 1 mg intravenously once1 mg, intravenous, Once, On Mon04/08/24 at 2015, For 1 dose, Look-alike/sound-alike medication - verify indication for use;IV use requires increased monitoring of HR,BP,Respirations and Pulse Oximetry;For IV-dilute with equal volume PF sod chloride, Indication: Sedation End: 68-87-6645qfuk 1 tablet by mouth twice dailyLORazepam (ATIVAN) 2 MG tablet Take 2 mg by mouth 2 times daily. 0 10/20/2021 Discontinued (Stop Taking at Discharge)lumateperone (CAPLYTA) 10.5 mg capsule (20 sources) End: 62-89-3571dfsc 1 capsule by mouth once dailylumateperone (CAPLYTA) 10.5 mg capsule Take 10.5 mg by mouth once daily. 05/03/2024 Discontinuedtake 1 capsule by mouth once dailylumateperone (CAPLYTA) 10.5 mg capsule Take 10.5 mg by mouth once daily. Activetake 1 capsule by mouth once dailylumateperone (CAPLYTA) 10.5 mg capsule Take 10.5 mg by mouth once daily. 0 ActiveComment on above:Take 10.5 mg by mouth once daily.100 ml magnesium sulfate 10 mg/ml injection (4 sources)Start: 08-02-2024 End: g, INTRAVENOUS, at 100-200 mL/hr, Administer over 0.5-1 Hours, ONCE, 1 dose, On Mon08/02/24 at 1030, Magnesium sulfate iv bolus will be infused at a rate of 1 gram/hr The following nursing unitsmay administer 2 g dose over 1 hour if necessary: ICUs/PACU/ED, Adult Hematology/Oncology, Labor and Delivery, Cardiac Stepdown, Headache Clinic If necessary, a magnesium sulfate bolus may be administered greater than 2 g/hr for the following indications: Adult and Pediatric Asthma Exacerbations, [place], Pediatric BMT and Hematology/Oncology, Eclampsia or PreeclampsiaStart: 01-22-2024 End: g, INTRAVENOUS, at 100-200 mL/hr, Administer over 0.5-1 Hours, ONCE, 1 dose, On Mon01/22/24 at 1330, Magnesium sulfate iv bolus will be infused at a rate of 1 gram/hr The following nursing unitsmay administer 2 g dose over 1 hour if necessary: ICUs/PACU/ED, Adult Hematology/Oncology, Labor and Delivery, Cardiac Stepdown, Headache Clinic If necessary, a magnesium sulfate bolus may be administered greater than 2 g/hr for the following indications: Adult and Pediatric Asthma Exacerbations, [place] Point[place], Pediatric BMT and Hematology/Oncology, Eclampsia or PreeclampsiaStart: 01-19-2024 End: g, INTRAVENOUS, at 100-200 mL/hr, Administer over [...] Pointes, Pediatric BMT and Hematology/Oncology, Eclampsia or PreeclampsiaStart: 01-17-2024 End: g, INTRAVENOUS, at 100-200 mL/hr, Administer over [...] Pointes, Pediatric BMT and Hematology/Oncology, Eclampsia or Preeclampsiameclizine hydrochloride 25 mg oral tablet (8 sources)AntiemeticStart: 06-22-2022 End: 99-65-8422lhez 1 tablet by mouth three times daily as needed for dizziness meclizine (ANTIVERT) 25 mg tablet Take 1 tablet (25 mg total) by mouth 3 (three) times a day as needed for dizziness. 20 tablet 06/22/2022 03/25/2024 Discontinued (Therapy completed)methocarbamol iv infusion 1,000 mg in NaCl 0.9% 100 mL (ROBAXIN) (4 sources)Start: 08-02-2024 End: ,000 mg, INTRAVENOUS, Administer over 30 Minutes, ONCE, 1 dose, On Mon08/02/24 at 1030, AdministerIV while in recumbent position. Maintain position for at least 10-15 minutes following infusion.Start: 01-22-2024 End: ,000 mg, INTRAVENOUS, Administer over 30 Minutes, ONCE, 1 dose, On Mon01/22/24 at 1330, AdministerIV while in recumbent position. Maintain position for at least 10-15 minutes following infusion.Start: 01-19-2024 End: ,000 mg, INTRAVENOUS, Administer over 30 Minutes, ONCE, 1 dose, On Mon01/19/24 at 0930, Administer IV while in recumbent position. Maintain position for at least 10-15 minutes following infusion.Start: 01-17-2024 End: ,000 mg, INTRAVENOUS, Administer over 30 Minutes, ONCE, 1 dose, On Mon01/17/24 at 0830, Administer IV while in recumbent position. Maintain position for at least 10-15 minutes following infusion.1 ml methylPREDNISolone acetate 80 mg/ml injection (4 sources)CorticosteroidStart: 02-09-2024 End: 32-56-1412jtlvnhKKRNIUOjfzcv acetate (DEPO-Medrol) injection 80 mgStart: 02-09-2024 End: 29-32-2816vsanbdGTXWHDHpbvor acetate (DEPO-Medrol) injection 80 mgStart: 02-09-2024 End: 17-33-375435 mg, Injection, Once, On Mon02/09/24 at 1130, For 1 doseStart: 02-09-2024 End: 58-84-767747 mg, Injection, Once, On Mon02/09/24 at 1130, For 1 dose2 ml midazolam 1 mg/ml injection (1 source)BenzodiazepineStart: 10-19-2021 End: 54-38-5103ntlrudtjp PF (VERSED) injection 1 mgmontelukast 10 mg oral tablet (19 sources)Leukotriene Receptor AntagonistStart: 06-07-2022 End: 03-26-0656edpb 1 tablet by mouth in the morningmontelukast (SINGULAIR) 10 mg tablet Take 1 tablet (10 mg total) by mouth in the morning. 30 tablet 06/07/2022 04/25/2024 Discontinued1 ml morphine sulfate 4 mg/ml injection (1 source)Opioid AgonistStart: 04-08-2024 End: mg, intravenous, Once, On Mon04/08/24 at 1335, For 1 dose, Look-alike/sound-alike medication - verify indication for use.naloxone (NARCAN) 4 mg/actuation spray,non-aerosol nasal spray (6 sources)Start: 04-10-2024 End: 34-45-9993smpflufv (NARCAN) 4 mg/actuation spray,non-aerosol nasal spray Administer 1 spray (4 mg total) intoalternating nostrils as needed for opioid reversal. 1 each 04/10/2024 04/25/2024 DiscontinuedStart: 69-95-8496seosxmqo (NARCAN) 4 mg/actuation spray,non-aerosol nasal spray Administer 1 spray (4 mg total) intoalternating nostrils as needed for opioid reversal. 1 each 04/10/2024 ActiveStart: 79-09-2439vlpkknfq (NARCAN) 4 mg/actuation spray,non-aerosol nasal spray Administer 1 spray (4 mg total) intoalternating nostrils as needed for opioid reversal. 1 each 04/10/2024naratriptan 2.5 mg oral tablet (4 sources)Serotonin-1b and Serotonin-1d Receptor AgonistStart: 30-77-9059hgqj 1 tablet by mouth every four hours as needednaratriptan (AMERGE) 2.5 mg tablet Take 1 tablet by mouth as needed. 2.5 mg at onset of headache, may repeat in 4 hours if needed 10 tablet 5 12/03/2021 ActiveComment on above:Take 1 tablet by mouth as needed. 2.5 mg at onset of headache, may repeat in 4 hours if needed nystatin 100 unt/mg topical powder (15 sources)Polyene AntifungalStart: 01-24-2024 End: 24-10-9221wqlouezd (MYCOSTATIN) powder APPLY TO THE AFFECTED AREA(S) topically TWICE DAILY 01/24/2024 04/08/2024 Discontinued (Therapy completed) Start: 01-24-2024 End: 22-79-5161xblbdexz (Mycostatin) 099810 UNIT/GM powder Indications: Rash , Yeast dermatitis Apply topically 2 (two) times a day 60 g 01/24/2024 02/28/2024 Discontinued2 ml ondansetron 2 mg/ml injection (20 sources)Serotonin-3 Receptor AntagonistStart: 08-01-2024 End: mg, INTRAVENOUS, EVERY 1 HOUR NEEDED, 2 doses, Starting on Mon08/02/24 at 1017, Until Mon08/02/24 at 1453, Nausea/Vomiting - First Line - ParenteralStart: 05-04-2024 End: 21-55-4379cfmw 1 tablet by mouth every six hours as needed for nausea and vomitingondansetron ODT (ZOFRAN ODT) 4 mg disintegrating tablet Dissolve 1 tablet (4 mg total) on tongue every 6 (six) hours as needed for nausea or vomiting for up to 30 days. 10 tablet 05/04/2024 06/03/2024 ActiveStart: 05-02-2024 End: mg, INTRAVENOUS, EVERY 1 HOUR NEEDED, 2 doses, Starting on Emg 05/02/24 at 1032, Until Emg 05/02/24 at 1436, Nausea/Vomiting - First Line - ParenteralStart: 04-08-2024 End: mg, intravenous, Once, On Mon04/08/24 at 1335, For 1 dose, Administer over 2-5 minutes.Start: 02-10-2024 End: 69-82-0100rlhk 1 tablet by mouth every eight hours as needed for nausea ondansetron ODT (ZOFRAN ODT) 4 mg disintegrating tablet Dissolve 1 tablet (4 mg total) on tongue every 8 (eight) hours as needed for nausea for up to 20 doses. 10 tablet 02/10/2024 04/25/2024 DiscontinuedStart: 01-22-2024 End: mg, INTRAVENOUS, EVERY 1 HOUR NEEDED, 2 doses, Starting on Mon01/22/24 at 1328, Until Mon01/22/24 at 1758, Nausea/Vomiting - First Line - ParenteralStart: 01-19-2024 End: mg, INTRAVENOUS, EVERY 1 HOUR NEEDED, 2 doses, Starting on Mon01/19/24 at 0909, Until Mon01/19/24 at 1355, Nausea/Vomiting - First Line - ParenteralStart: 01-17-2024 End: mg, INTRAVENOUS, EVERY 1 HOUR NEEDED, 2 doses, Starting on Mon01/17/24 at 0815, Until Mon01/17/24 at 1329, Nausea/Vomiting - First Line - ParenteralStart: 01-05-2024 End: mg, INTRAVENOUS, EVERY 1 HOUR NEEDED, 2 doses, Starting on Mon01/05/24 at 1235, Until Mon01/05/24 at 1559, Nausea/Vomiting - First Line - ParenteralStart: 10-13-2023 End: mg, INTRAVENOUS, EVERY 1 HOUR NEEDED, 2 doses, Starting on Mon10/13/23 at 1221, Until Mon10/13/23 at 1600, Nausea/Vomiting - First Line - ParenteralStart: 12-24-2020 End: 41-40-4505lsryhmcvenx (ZOFRAN) injection 4 mgphentermine hydrochloride 37.5 mg oral capsule (20 sources)Sympathomimetic Amine AnorecticStart: 06-06-2024 End: 05-64-5012fdzc 1 capsule by mouth once daily in the morningphentermine 37.5 MG capsule Indications: Weight loss Take 1 capsule (37.5 mg total) by mouth every morning. 30 capsule 06/06/2024 10/24/2024 Discontinued (Therapy completed) Start: 03-21-2023 End: 11-21-2476eeir 1 tablet by mouth once daily before breakfastphentermine (ADIPEX-P) 37.5 mg tablet Take 1 tablet (37.5 mg total) by mouth every morning before breakfast. 01/10/2024 04/08/2024 Discontinued (Therapy completed)Comment on above:take 1 tablet by mouth every morning before mealspiperacillin- tazobactam (ZOSYN) 4.5 g in sodium chloride 0.9 % 50 mL IVPB-MBP (1 source)Start: 04-08-2024 End: .5 g, intravenous, at 100 mL/hr, Administer over 0.5 Hours, Once, On Mon04/08/24 at 1615, For 1 dose, ADD-VANTAGE/MBP- Discard 24 hours after activating; dissolve drug prior to administrationpolyethylene glycol 3350 12922 mg powder for oral solution (1 source)Osmotic LaxativeStart: g, Oral, DAILY PRN, Starting on Mon10/19/21 at 1226, Until Discontinued, Constipation First linetherapy for constipationprochlorperazine 5 mg/ml injectable solution (3 sources)PhenothiazineStart: 01-22-2024 End: 41-84-703974 mg, INTRAVENOUS, NEEDED, 1 dose, Starting on Mon01/22/24 at 1328, Until Mon01/22/24 at 1407, for headache; previously tolerated if given with Benadryl, Protect From LightStart: 01-19-2024 End: 04-37-670541 mg, INTRAVENOUS, NEEDED, 1 dose, Starting on Mon01/19/24 at 0909, Until Mon01/19/24 at 0951, for headache; previously tolerated if given with Benadryl, Protect From LightStart: 01-17-2024 End: 72-08-553915 mg, INTRAVENOUS, NEEDED, 1 dose, Starting on Mon01/17/24 at 0815, Until Mon01/17/24 at 0923, for headache; previously tolerated if given with Benadryl, Protect From Lightrimegepant 75 mg disintegrating oral tablet (8 sources)Start: 10-29-2020 End: 38-67-8931ysbccooksu 75 mg tablet,disintegrating Indications: Chronic mixed headache syndrome Dissolve 1 tablet on tongue daily as needed (migraines). 8 tablet 1 10/29/2020 03/25/2024 Discontinued (Therapy completed)20 ml ropivacaine hydrochloride 5 mg/ml injection (2 sources)Amide Local AnestheticStart: 08-18-2023 End: 44-39-6068NNLulxsbvqn (PF) 5 mg/mL (0.5 %) 100 mg injection (NAROPIN)1000 ml sodium chloride 9 mg/ml injection (13 sources)Start: 08-02-2024 End: mL, INTRAVENOUS, at 999 mL/hr, Administer over 0.5 Hours, ONCE, 1 dose, On Mon08/02/24 at 1030Start: 05-02-2024 End: -999 mL/hr, INTRAVENOUS, NEEDED, 1 dose, Starting on Meg 05/02/24 at 1156, Until Meg 05/02/24 at 1220, Hypotension (titrate to maintain SBP greater than 100), Administer per hypersensitivity/anaphylaxis grading in nursing communication.Start: 04-08-2024 End: 57-24-352782 mL, intravenous, As needed, line care, Starting on Mon04/08/24 at 1521Start: 04-08-2024 End: 35-85-393766 mL, intravenous, Once in imaging, pre/post contrast, Starting on Mon04/08/24 at 1521, For 1 doseStart: 04-08-2024 End: ,000 mL, intravenous, at 3,871 mL/hr, Administer over 31 Minutes, Once, On Mon04/08/24 at 1335, For 1 doseStart: 01-19-2024 End: 68-94-3473972 mL, INTRAVENOUS, at 999 mL/hr, Administer over 0.5 Hours, ONCE, 1 dose, On Mon01/19/24 at 0930Start: 01-17-2024 End: 79-75-4168360 mL, INTRAVENOUS, at 999 mL/hr, Administer over 0.5 Hours, ONCE, 1 dose, On Mon01/17/24 at 0830Start: 40-67-2670mgmi 1 dose intravenously twice daily5-40 mL, IntraVENous, EVERY 12 HOURS SCHEDULED (2 times per day), First dose on Mon10/19/21 at 2100, Until Discontinued For Line Patency: Peripheral IV = 5 mL; Midline or Central Line = 10 mL/lumen. If following IV push medication, administer flush at same rate as the IV push. Flu sh volume is determined by type of infusion therapy being given. For non-viscoussolutions use: Peripheral IV = 5 mL Midline or Central Line = 10 mL/lumen For viscous solutions (i.e. blood components, parenteral nutrition, contrast media, or after obtaining blood sample) use: Peripheral IV = 10 mL Midline or Central Line = 20 mL/lumenStart: 06-98-9132tdgotb chloride flush 0.9 % injection 10 mLStart: 10-19-2021 End: 53-60-5499UaxrjELHkll, at 125 mL/hr, CONTINUOUS, Starting on Mon10/19/21 at 1245Start: 16-76-4120GzxnwOZSsyl, at 5-250 mL/hr, PRN, if patient receiving piggyback infusions and maintenance fluids are not ordered OR KVO fluids to protect IV site / prevent frequent line interruptions/ long duration, Starting on Mon10/19/21 at 1226 For piggyback infusion, administer at same rate as piggyback for atotal of 25 mL. Enter 25 mL into dose field and piggyback rate into rate field of order. If piggyback is infusing at a rate less than 100 mL/hr, enter 25 mL into dose field and 100 mL/hr into rate field of order. For KVO fluids, enter rate of 20 mL/hr or less into rate field of order.Start: 91-84-0192kygy 5-40 mL intravenously once as needed5-40 mL, IntraVENous, PRN, Starting on Mon10/19/21 at [...] mL Midline or Central Line = 20 mL/lumenStart: 12-24-2020 End: .9 % sodium chloride bolussulfamethoxazole 800 mg / trimethoprim 160 mg oral tablet (5 sources)Dihydrofolate Reductase Inhibitor Antibacterial, Sulfonamide AntimicrobialStart: 04-07-2024 End: 55-62-1141huqg 1 tablet by mouth once in the morningsulfamethoxazole- trimethoprim (BACTRIM DS) 800-160 mg per tablet Take 1 tablet by mouth in the morning and 1 tablet before bedtime. 04/07/2024 04/10/2024 Discontinued (Stop Taking at Discharge)Start: 11-15-2023 End: 74-76-6220mndz 1 tablet by mouth once in the morning, then take 1 tablet by mouth once at bedtimesulfamethoxazole-trimethoprim (Bactrim DS) 800-160 MG per tablet Indications: Acute bronchitis due to other specified organisms Take 1 tablet by mouth in the morning and 1 tablet before bedtime. Do all this for 14 days. 28 tablet 11/15/2023 11/29/2023 ActiveStart: 10-10-2023 End: 56-14-9344etna 1 tablet by mouth once in the morning, then take 1 tablet by mouth once at bedtimesulfamethoxazole-trimethoprim (Bactrim DS) 800-160 MG per tablet Indications: Acute bronchitis due to other specified organisms Take 1 tablet by mouth in the morning and 1 tablet before bedtime. Do all this for 14 days. 28 tablet 10/10/2023 10/24/2023 ActiveSUMAtriptan 100 mg oral tablet (3 sources)Serotonin-1b and Serotonin-1d Receptor Agonist End: 39-56-4494XRANuoeeqcm (IMITREX) 100 mg tablet Take 100 mg by mouth. 0 12/03/2021 Discontinued (Lack of Efficacy)Comment on above:Take 100 mg by mouth. traZODone hydrochloride 100 mg oral tablet (20 sources)Serotonin Reuptake InhibitorStart: 04-09-2024 End: 06-49-2082qoky 300 mg by mouth once rhiyz015 mg, oral, Nightly, First dose on Mon04/09/24 at 0100, Look-alike/sound-alike medication - verify indication for use.Start: 12-42-6360nbqu 1 tablet by mouth once dailytraZODone (DESYREL) 300 MG tablet Take 1 tablet (300 mg total) by mouth nightly. 03/14/2024 Active Start: 05-10-2023 End: 86-56-9977kvbo 1 tablet by mouth at bedtimetraZODone (Desyrel) 300 MG tablet Take 300 mg by mouth at bedtime 05/10/2023 02/28/2024 DiscontinuedStart: 06-13-2022 End: 10-59-0034wwxCMYaoy (DESYREL) 100 mg tablet 06/13/2022 05/03/2024 Discontinued End: 51-08-9622otib 2 tablets by mouth once dailytraZODone (DESYREL) 100 mg tablet Take 2 tablets (200 mg total) by mouth nightly. 03/25/2024 Discontinued (Therapy completed) End: 69-98-4380oybNEQvxu (Desyrel) 50 MG tablet Take by mouth at bedtime. 01/09/2024 Discontinuedvancomycin (VANCOCIN) IVPB 1250 mg/250 mL in 0.9% sodium chloride (premix) (1 source)Start: 04-09-2024 End: 13-53-1038qdtx 1250 mg intravenously every eight hours1,250 mg, intravenous, at 167 mL/hr, Administer over 90 Minutes, Every 8 hours, First dose on Mon04/09/24 at 1030, VESICANT (YELLOW), Indication: Other, Specify: peritonitisvancomycin (VANCOCIN) IVPB 2000 mg/500 mL in 0.9% sodium chloride (premix) (1 source)Start: 04-08-2024 End: ,000 mg (rounded from 2,140 mg = 20 mg/kg 107 kg Order-specific weight), intravenous, at 250 mL/hr, Administer over 120 Minutes, Once, On Mon04/08/24 at 1615, For 1 dose, VESICANT (YELLOW), Indication: Uncomplicated skin and soft tissue segzgwfrw34 hr venlafaxine 75 mg extended release oral capsule (5 sources)Serotonin and Norepinephrine Reuptake Inhibitorvenlafaxine ER (EFFEXOR XR) 75 mg 24 hr capsule venlafaxine ER 75 mg capsule,extended release 24 hr0 Activetake 1 capsule by mouth once dailyvenlafaxine (EFFEXOR XR) 75 MG extended release capsule Take 75 mg by mouth daily 0 SuspendedComment on above: venlafaxine ER 75 mg capsule,extended release 24 hrvilazodone hydrochloride 20 mg oral tablet (20 sources)Start: 04-20-2022 End: 63-78-0420wiscxclihu (VIIBRYD) 20 mg tablet 2 tablets (40 mg total). 04/20/2022 03/25/2024 Discontinued (Therapy completed)Start: 04-20-2022 End: 11-88-7841yftahhehir (VIIBRYD) 20 mg tabletvitamin b12 1 mg oral tablet (8 sources)Vitamin B12 End: 82-62-3433surn 1 tablet by mouth in the morningcyanocobalamin 1000 MCG tablet Take 1 tablet (1,000 mcg total) by mouth in the morning. 03/25/2024 D iscontinued (Therapy completed) Problems Active Problems Problem ClassificationProblemDateDocumented DateEpisodic/ChronicAllergic reactions (3 sources)Environmental allergy; Translations: [Other allergy status, other than to drugs and biological substances]Onset: 608761-68-6094Tonlrvkj Anxiety disorders (20 sources)Anxiety disorder, unspecified; Translations: [Generalized anxiety disorder]Onset: 143481-52-7407WpemhtsUtinvm (20 sources)Unspecified asthma, uncomplicated; Translations: [Mild persistent asthma]Onset: 12-29-2021 Resolved: 642955-61-5449XoyrpqrQomfawaalauzv of surgical procedures or medical care (2 sources)Menopausal flushing; Translations: [Symptomatic postprocedural ovarian failure]90-78-9580VlsnznoS Codes: Fall (1 source)Unspecified fall, initial encounter; Translations: [UNSPECIFIED FALL INITIAL ENCOUNTER]Onset: 55-32-4650PukyettiKrfxutonjazgb (1 source)Endometriosis, unspecified; Translations: [ENDOMETRIOSIS UNSPECIFIED] Onset: 17-60-9831HfycgefSclxvdktrw disorders (6 sources)Gastro-esophageal reflux disease without esophagitis; Translations: [Gastroesophageal reflux disease]Onset: 242239-08-1529CkyhdroRuduqgflkofkg symptoms and ill-defined conditions (1 source)Stress incontinence (female) (male); Translations: [STRESS INCONTINENCE FEMALE MALE]Onset: 06-15-1867BztimfmNblchptawhnat symptoms and ill- defined conditions (1 source)Painful micturition, unspecified; Translations: [PAINFUL MICTURITION UNSPECIFIED]Onset: 96-28-6591BzmxckdgGexzbdib; including migraine (20 sources)Migraine; Translations: [Migraine, unspecified, not intractable, without status migrainosus]Onset: 51-55-7883XwshvzwWsdqsmia; including migraine (1 source)Headache; Translations: [Chronic intractable headache, unspecified headache type]EpisodicHeadache; including migraine (4 sources)Headache; including migraine; Translations: [HEADACHE UNSPECIFIED] Onset: 06-06-6087Isayk valve disorders (1 source)Nonrheumatic mitral (valve) prolapse; Translations: [NONRHEUMATIC MITRAL VALVE PROLAPSE]Onset: 74-49-8334GyqsiqrYslnxgpnxatk; infection of eye (except that caused by tuberculosis or sexually transmitteddisease) (12 sources)Infection of bilateral eyes; 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, bilateral]Onset: 372058-38-5245HjasxjxXetsfvqjrgih diseases of female pelvic organs (4 sources)Female pelvic peritoneal adhesions; Translations: [Female pelvic peritoneal adhesions (postinfective)]50-70-8596GdthgmwvFkimfwvlxl disorders (3 sources)Menopausal symptom; Translations: [Menopausal and female climacteric states]57-36-9632VpunapqLpucksazi disorders (1 source)Dysmenorrhea, unspecified; Translations: [DYSMENORRHEA UNSPECIFIED] Onset: 00-19-8306AlooibtKwcialfnjeolw mental health disorders (20 sources)Dissociative convulsions; Translations: [Conversion disorder with seizures or convulsions]Onset: 66-59-6255XeezpkjKxug disorders (20 sources)Bipolar disorder, unspecified; Translations: [Major depressive disorder, single episode, unspecified]Onset: 409723-44-3402IoztwwkUxiqlfd (5 sources)Mycosis; Translations: [Candidiasis, unspecified]27-39-4955Tmdxieof Other aftercare (1 source)Other custodial (current) drug therapy; Translations: [OTH [facility] CURRENT DRUG THERAPY]Onset: 66-64-2999PluxrzifRncia aftercare (2 sources)Wound finding; Translations: [Encounter for other specified aftercare]91-41-0448OqaonqnaZvgmw connective tissue disease (2 sources)Spasm; Translations: [Other muscle spasm]70-07-1615EnxutqkbFnafj endocrine disorders (1 source)Polycystic ovarian syndrome; Translations: [POLYCYSTIC OVARIAN SYNDROME]Onset: 13-90-1267IvwpmvbEmasf endocrine disorders (20 sources)Polycystic ovary; Translations: [Polycystic ovarian syndrome]Onset: 730575-47-4946MzudcvnWflmu eye disorders (1 source)Bilateral epiphora of eyes; Translations: [Unspecified epiphora, bilateral]62-26-8612DevfxkdvRrhvw female genital disorders (1 source)Unspecified dyspareunia; Translations: [UNSPECIFIED DYSPAREUNIA]Onset: 84-98-2881PfyckykQpexk female genital disorders (1 source)Abnormal uterine and vaginal bleeding, unspecified; Translations: [ABNORMAL UTERINE VAGINAL BLEED UNS]Onset: 61-40-6038YaqpbdzYdqgf female genital disorders (2 sources)Pain in female genitalia on intercourse; Translations: [Unspecified dyspareunia]81-59-1594KmgtbpnSpjci gastrointestinal disorders (1 source)Other constipation; Translations: [OTHER CONSTIPATION]Onset: 54-53-3584DbwjpuxqGaczn injuries and conditions due to external causes (4 sources)Unspecified injury of head, initial encounter; Translations: [UNSPECIFIED INJURY HEAD INITIAL ENC]Onset: 01-73-1449BcyloltxSvdgq injuries and conditions due to external causes (1 source)Allergic reaction; Translations: [Allergy, unspecified, sequela] 44-60-2380DsiibhuxScjhm liver diseases (1 source)Fatty (change of) liver, not elsewhere classified; Translations: [FATTY CHANGE LIVER NEC]Onset: 06-17-8918AvspahyEqbti lower respiratory disease (1 source)Nodule of lung; Translations: [Solitary pulmonary nodule]03-20-2024 EpisodicOther nervous system disorders (1 source)Tremor; Translations: [Tremor, unspecified]EpisodicOther nervous system disorders (3 sources)Postoperative pain ; Translations: [Other acute postprocedural pain] 34-60-8049TqypvlclLwvfl nutritional; endocrine; and metabolic disorders (1 source)Morbid (severe) obesity due to excess calories; Translations: [MORBID SEVERE OBES D/T EXCESS DAJUAN]Onset: 67-99-1777DmktidfPmhbp nutritional; endocrine; and metabolic disorders (1 source)Body mass index (BMI) 45.0-49.9, adult; Translations: [BODY MASS INDEX BMI 45.0-49.9 ADULT]Onset: 92-10-9773LtbembzKepdw nutritional; endocrine; and metabolic disorders (8 sources)Morbid obesity; Translations: [Morbid (severe) obesity due to excess calories]Onset: 740362-11-7099SfzsojwPvudp nutritional; endocrine; and metabolic disorders (20 sources)Severe obesity; Translations: [Class 3 severe obesity due to excess calories without serious comorbidity with body mass index (BMI) of 50.0 to 59.9 in adult]Onset: 850681-21-4332VqsllsdSniub nutritional; endocrine; and metabolic disorders (2 sources)Weight decreased; Translations: [Abnormal weight loss]06-06-2024 EpisodicOther skin disorders (2 sources)Excessive sweating; Translations: [Generalized hyperhidrosis] 85-26-3352NrnhcollZdwbl upper respiratory disease (3 sources)Seasonal allergic rhinitis; Translations: [Other seasonal allergic rhinitis]87-01-9608BpakwmiUlfms upper respiratory infections (1 source)Acute pansinusitis; Translations: [Acute pansinusitis, unspecified] 82-62-0832EcmdnepeLsmsqd media and related conditions (1 source)Otitis media of left ear; Translations: [Otitis media, unspecified, left ear]66-21-9409YbbrzovqSnjaait cyst (11 sources)Complex ovarian cyst; Translations: [Other ovarian cyst, unspecified side]81-23-7848JakkkijdOvvjtysz codes; unclassified (4 sources)Obstructive sleep apnea syndrome; Translations: [Obstructive sleep apnea (adult) (pediatric)]68-57-9271MrgogqcLfdurlku codes; unclassified (1 source)Acquired absence of other specified parts of digestive tract; Translations: [ACQ ABSENCE OTH PART DIGESTV TRACT]Onset: 03-43-8970Bockhbfm Residual codes; unclassified (1 source)Preoperative euhae18-65-0128YzraidliNuryolvz codes; unclassified (2 sources)Family history of hereditary disease; Translations: [Family history of other specified conditions]13-58-4133YxoqyywlPyvkvcwu codes; unclassified (2 sources)Reduced libido; Translations: [Decreased libido]27-07-3614Kcspzqnp Residual codes; unclassified (1 source)Family history of other specified conditions; Translations: [Family history of other specified conditions]Onset: 52-84-9461NnbrpzorQqlmodxgukaz (3 sources)LOW BACK PAIN, UNSPECIFIED; Translations: [LOW BACK PAIN, UNSPECIFIED]Onset: 52-19-6663Lzmhgnmjqtph (1 source)CONTACT W/AND (SUSP) EXPOS COVID-19; Translations: [CONTACT W/AND (SUSP) EXPOS COVID-19]Onset: 44-99-7435Ajdkb infection (1 source)Disease caused by 2019-nCoV; Translations: [COVID-19]01-24-2024 Episodic Past or Other Problems Problem ClassificationProblemDateDocumented DateEpisodic/ChronicAbdominal pain (20 sources)Unspecified abdominal pain; Translations: [Pelvic and perineal pain] Onset: 08-17-2021 Resolved: 47-07-2252ThhocqmuLouxt bronchitis (20 sources)Acute infective bronchitis; Translations: [Acute bronchitis due to other specified organisms]Onset: 10-10-2023 Resolved: 983403-25-7388ZwhuukplEagt; stupor; and brain damage (20 sources)Somnolence; Translations: [Loss of consciousness]Onset: 08-06-2021 Resolved: 848970-41-6365BibynlnaIdqsscjbovpeu of surgical procedures or medical care (20 sources)Postoperative complication; Translations: [Other postprocedural complications and disorders of genitourinary system]Onset: EpisodicContraceptive and procreative management (1 source)Tubal ligation status; Translations: [TUBAL LIGATION STATUS]Onset: 87-72-4459RtxejqyjVlbcsirhy of teeth and jaw (20 sources)Toothache; Translations: [Other specified disorders of teeth and supporting structures]Onset: 012508-57-9172HftftugrDnfnwcxi; convulsions (20 sources)Seizure disorder; Translations: [Epilepsy, unspecified, not intractable, without status epilepticus]Onset: 02-18-2020 Resolved: 81-94-0869VenuhmtTgbnnkgg; convulsions (20 sources)Neurological finding; Translations: [Unspecified convulsions]Onset: 10-19-2021 Resolved: 65-04-7656CujdxvfsJpifakq and fatigue (20 sources)Fatigue; Translations: [Other fatigue]Onset: EpisodicMood disorders (20 sources)Mood disorders; Translations: [DEPRESSION UNSPECIFIED]Onset: 03-03-2022 Resolved: Nausea and vomiting (20 sources)Nausea; Translations: [Nausea with vomiting, unspecified]Onset: 22-56-0641WehnqsxzQoonf aftercare (20 sources)Long-term current use of drug therapy; Translations: [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]Onset: 636878-52-8300ScwfmbxxSlovq female genital disorders (1 source)Pain in female pelvis; Translations: [Pelvic pain in female]Onset: 015031-12-3752CkbpvmvcRvixo gastrointestinal disorders (1 source)Diarrhea, unspecified; Translations: [DIARRHEA UNSPECIFIED]Onset: 87-48-2497RdfctbxiUgyfx liver diseases (1 source)Hepatomegaly, not elsewhere classified; Translations: [HEPATOMEGALY NEC]Onset: 90-40-2949EbyyffgrCjegl lower respiratory disease (20 sources)Dyspnea on exertion; Translations: [Shortness of breath]Onset: 762670-90-2399MgjmlpuyFtvbv lower respiratory disease (20 sources)Cough; Translations: [Acute cough]Onset: 01-27-2022 Resolved: 604972-99-6352VbnupbwgHtbxl nervous system disorders (5 sources)Other acute postprocedural pain; Translations: [OTHER ACUTE POSTPROCEDURAL PAIN]Onset: 48-98-4853CgnkquieXisze screening for suspected conditions (not mental disorders or infectious disease) (20 sources)Suspected disorder; Translations: [Encounter for suspected anomaly ruled out]Onset: 372870-65-7692XerjnnwzBnubv skin disorders (13 sources)Ingrowing great toenail; Translations: [Ingrowing nail]Onset: 055930-64-5568KlgkzzhuChiquvat codes; unclassified (1 source)Acquired absence of both cervix and uterus; Translations: [ACQUIRED ABSENCE BOTH CERVIX AND UTERUS]Onset: 41-48-4578HxojbpsfQkihxuqn codes; unclassified (1 source)Other specified postprocedural states; Translations: [OTH SPECIFIED POSTPROCEDURAL STATES]Onset: 21-68-5678UgtsdbxyJkupbimu codes; unclassified (20 sources)Persistent insomnia; Translations: [Insomnia, unspecified]Onset: 057873-29-5504AqnglsirCzlbizzb codes; unclassified (20 sources)Edema, generalized; Translations: [Generalized edema]Onset: 419180-58-2818IqteeaixTdmjhuiu codes; unclassified (20 sources)History of bilateral salpingo-oophorectomy; 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, bilateral]Onset: 873249-48-7570PclsuwgxCtzl and subcutaneous tissue infections (20 sources)Cellulitis of abdominal wall ; Translations: [Cellulitis of abdominal wall]Onset: 040796-41-1679KiwdcstySnyklcaxarz; intervertebral disc disorders; other back problems (20 sources)Cervicalgia; Translations: [Neck pain]Onset: 358904-94-6031 EpisodicUnclassified (1 source)LOW BACK PAIN, UNSPECIFIED; Translations: [LOW BACK PAIN, UNSPECIFIED] Onset: 30-05-7902Uqzgzxhnbllm (1 source)Patient encounter kmdhma09-71-3849Ndxcqtvqsmts (1 source)Onset: 714754-80-6158Yggizto tract infections (1 source)Urinary tract infection, site not specified; Translations: [UTI SITE NOT SPECIFIED]Onset: 96-31-7252Bqirfbes Results Test NameValueInterpretationReference RangeFacilityCNOVon 47-51-8914LQIQVgmqws Visit ([facility]) APRIL NICHOLSON ([id number]) 1995 F Date Time Provider Department 10/24/25 1:30 PM CURTIS LEPE [facility] During your visit today, we recorded the following information about you: Curtis Lepe PA-C 12/13/2024 10:47 AM Signed - You have completed all three of [...] the office to arrange an earlier appointment. Curtis Lepe PA-C 12/13/2024 10:49 AM Signed [facility] A Note Subjective: April Nicholson is a 29 year old year old female presenting for day 3 of infusions. April reports improvement in her headache pain. She has completed 3 infusion treatments: Monday, yesterday, and today. April reports snoring and during sleep, and believes [...] Lymph 1.00 - 4.00 k/uL 0.84 Abs [place] <0.87 k/uL 0.06 Abs Eosin <0.46 k/uL [...] mg/72 hr (delivers 1 mg over 3 days)apply 1 patch behind the EAR at least FOUR HOURS prior to exposure and every 3 (THREE) days NEEDEDDisp: 4 patchRfl: 2 carBAMazepine XR (TEGRETOL XR) 100 mg 12 hr tabletTake 100 mg by mouth two times a day.Disp: Rfl: (Patient taking differently: Take 200 mg by mouth two times a day.) desvenlafaxine ER (PRISTIQ) 50 mg 24 hr tabletTake 50 mg by mouth once daily.Disp: Rfl: (Patient taking differently: Take 100 mg by mouth once daily.) estradiol (ESTRACE) 1 mg tabletTake 1 mg by mouth every morning.Disp: Rfl: progesterone micronized (PROMETRIUM) 100 mg capsuleTake 100 mg by mouth once daily.Disp: Rfl: zavegepant (ZAVZPRET) 10 mg/actuation nasal sprayUse one [...] ZOLMitriptan (ZOMIG) 5 mg nasal sprayUse 1 [place] in the nose as needed at onset of migraine headache. If symptoms persist or return, may repeat dose in other nostril after 2 hours. Maximum of 2 sprays per 24 hoursDisp: 12 eachRfl: 5 albuterol sulfate 90 mcg/actuation breath activated powder inhalerInhale 2 Puffs as instructed every 6 hours as needed for (more content not included)... [facility] 86-77-7749WJWICoifdr Visit ([facility]) APRIL NICHOLSON ([id number]) 1995 F Date Time Provider Department 12/12/24 9:00 AM BASIL CORNELIUS [facility] During your visit today, we recorded the following information about you: Pulse Blood pressure Weight 102/minute 127/79 128 kg Basil Cornelius DO 12/12/2024 9:58 AM Signed [facility] [address] [place] [address] [facility] - Follow up Visit Accompanied by: Self Primary Problem List: ACTIVE PROBLEM LIST Seizure-Like Activity (Hcc) Psychogenic Nonepileptic Seizure Intractable Chronic Migraine Without Aura and With Status Migrainosus Chronic Migraine Without Aura, With Intractable Migraine, So Stated, With Status Migrainosus Intractable Chronic Migraine Without Aura and Without Status Migrainosus Chief Complaint: migraine Impression and Plan from last visit 09/24/2024 (Curtis Lepe PA-C) IMPRESSION: April Nicholson is a 28 year [...] an on the specific date while she is here. - Increase Vyepti dose to 300 mg [...] this. Current treatment: Preventative: Vyepti 300 mg a1jtwzdr Abortive: Zavzpret 10 mg IN prn Zomig IN prn Phenergan Last office visit 09/24/2024: Headache 1 Lo (more content not included)...NormalBucyrus Community HospitalCNPNon [id number] (MNOPRX) APRIL NICHOLSON ([id number]) 1995 F Date Time Provider Department 08/05/24 RHIANNON BOBO MNOPRX During your visit today, we recorded the following information about you: Rhiannon Bobo 08/06/2024 9:58 AM Signed Ambulatory Pharmacy Prior Authorization Note Provider Intervention Required?: No - Pharmacy completed on your behalf. Was the PA documented within the ePA workqueue?: No Rx Plan: Medicaid MCO ([facility]) Drug: Zavzpret 10MG/ACT solution Cover My Meds Chong: [id number] Determination: Approved Prior Authorization/Case #: [id number] Prior Authorization Expiration: 01/31/2025 Time to PA [...] refills. Prescriptions will now be processed through [facility] for determination of next steps. For questions relating to this submission, please contact [facility] at [phone] Allergies As of Date: 08/05/2024 Noted Allergy Reaction DIHYDROERGOTAMINE 07/27/2022 5 - Intolerance Comments: Chest tightness, numbness and tingling in bilateral extremities, increased anxiety ADHESIVE TAPE-SILICONES 12/03/2021 2 - Rash AZITHROMYCIN 12/03/2021 14 - Other: See Comments KEFLEX (CEPHALEXIN) 12/03/2021 2 - Rash KEPPRA (LEVETIRACETAM) 11/11/2022 9 - Itching PROPRANOLOL 12/20/2020 4 - Hives 14 - Other: See Comments Comments: Migrianes PYRILAMINE-DEXTROMETHORPHAN 01/07/2022 4 - Hives REGLAN (METOCLOPRAMIDE) 12/03/2021 5 - Intolerance VORTIOXETINE 08/06/2021 4 - Hives PROCHLORPERAZINE 12/29/2023 5 - Intolerance VYEPTI ([facility]) 05/02/2024 2 - Rash 9 - Itching Comments: Patient described extreme itching located on her chest and arms (bilaterally). Date Reviewed: 08/05/2024 Reviewed by: Curtis Lepe PA-C - Fully Assessed Reason for Visit: Insurance Authorization [1323] Cmt: Zavzpret 10MG/ACT solution Zavzpret 10MG/ACT solution [...] (ZOMIG) 5 mg nasal spray Use 1 [place] in the nose as needed at onset [...] and w*06/24/2022 Chronic migraine without aura, with intractable*03/22/2023 Intractable chronic migraine without aura and w*09/19/2023 Encounter Status:Closed by RHIANNON BOBO on 08/06/24[facility] [id number] Visit (NHMNS2) APRIL NICHOLSON ([id number]) 1995 F Date Time Provider Department 08/02/24 11:00 AM CURTIS LEPE [facility] During your visit today, [...] Lymph 1.00 - 4.00 k/uL 0.84 Abs [place] <0.87 k/uL 0.06 Abs Eosin <0.46 k/uL [...] ZOLMitriptan (ZOMIG) 5 mg nasal sprayUse 1 [place] in the nose as needed at onset [...] Behaviors: no pain be (more content not included)...NormalBucyrus Community HospitalCNPNon [id number] (NIQ) APRIL NICHOLSON ([id number]) 1995 F Date Time Provider Department 07/05/24 CURTIS LEPE NITravis During your visit today, we recorded the following information about you: DooleyMendoza 07/05/2024 3:09 PM Signed Left detailed voicemail [...] 14 - Other: See Comments Comments: Migrianes PYRILAMINE-DEXTROMETHORPHAN 01/07/2022 4 - Hives REGLAN (METOCLOPRAMIDE) 12/03/2021 5 - Intolerance VORTIOXETINE 08/06/2021 4 - Hives VYEPTI (EPTINEZUMAB-[facility]) 05/02/2024 2 - Rash 9 - Itching [...] (ZOMIG) 5 mg nasal spray Use 1 [place] in the nose as needed at onset [...] 10 mg tablet Facility-Administered Medications as of 07/05/2024 - onabotulinum toxin type A 200 Units injection (BOTOX) Problem List As Of Date 07/05/2024 Noted Resolved Seizure-like activity (HCC) [R56.9] 04/01/2022 Psychogenic nonepileptic seizure [F44.5] 10/20/2021 Intractable chronic migraine without aura and w*06/24/2022 Chronic migraine without aura, with intractable*03/22/2023 Intractable chronic migraine without aura and w*09/19/2023 Encounter Status:Closed by MENDOZA DOOLEY on 07/05/24NoBellevue HospitalUrinalysis macro (dipstick) panel (U)on 29-17-7342Wmihppxwp, UANegative Negative - 4(70) +++ mg/dLNOMS HealthcareBlood, UANegativeNegative - 50 Isiah/mcL NOMS HealthcareClarity, UAClearNOMS HealthcareColor, UAYellowNOMS Healthcare Glucose, UANegativeNegative - 2000(110) ++++ mg/dLNOMS HealthcareInterpretation and review of laboratory resultsAbnormalNOMS HealthcareKetones, UANegative Negative - 160(16) ++++ mg/dLNOMS HealthcareLeukocytes, UANegativeNegative - 500+++ Blanca/mcLNOMS HealthcareNitrite, UANegativeNegative - PositiveNOMS HealthcarepH, UA65 - 9NOMS HealthcareProtein, UANegativeNegative - 2000(20) ++++ mg/dLNOMS HealthcareSpec Grav, UA1.0251 - 1.03NOMS HealthcareUrobilinogen, UA 0.20.2 - 12 mg/dLNOMS HealthcareNOMS HealthcareNCH Lab Reporton [id number] NormalNationBethesda North HospitalComment on above:Performed By: #### DNASTOR #### Performed at [facility], [address] [place] [address] [id number] 05-07-2024 CNPNTelephone (MNOPRX) APRIL NICHOLSON ([id number]) 1995 F Date Time Provider Department 05/07/24 [...] and I will put in the PA tio. Thanks! Angely Cotton RN [facility] P: , F: Angely Cotton RN 05/08/2024 3:21 PM Signed [facility] received prescription(s) for Ubrelvy 100MG tablets . Benefits investigation was conducted, indicating that a prior authorization is required. All pertinent clinical information was submitted to insurance. Epic- Referral # [id number] Angely Cotton RN [facility] P: , F: Angely Cotton RN 05/13/2024 9:21 AM Signed Ambulatory Pharmacy Prior Authorization Note Provider Intervention Required?: No - Pharmacy completed on your behalf. Was the PA documented within the ePA workqueue?: No Rx Plan: Medicaid MCO ([facility]) Drug: Ubrelvy 100MG tablets Cover My Meds Chong: [id number] Determination: Approved Prior Authorization/Case #: [id number] Prior Authorization Expiration: 05/07/24 Time to PA [...] refills. Prescriptions will now be processed through [facility] for determination of next steps. For questions relating to this submission, please contact [facility] at [phone] Allergies As of Date: 05/07/2024 Noted Allergy Reaction DIHYDROERGOTAMINE 07/27/2022 5 - Intolerance Comments: Chest tightness, numbness and tingling in bilateral extremities, increased anxiety ADHESIVE TAPE-SILICONES 12/03/2021 2 - Rash AZITHROMYCIN 12/03/2021 14 - Other: See Comments KEFLEX (CEPHALEXIN) 12/03/2021 2 - Rash KEPPRA (LEVETIRACETAM) 11/11/2022 9 - Itching PROPRANOLOL 12/20/2020 4 - Hives 14 - Other: See Comments Comments: Migrianes PYRILAMINE-DEXTROMETHORPHAN 01/07/2022 4 - Hives REGLAN (METOCLOPRAMIDE) 12/03/2021 5 - Intolerance VORTIOXETINE 08/06/2021 4 - Hives VYEPTI (EPTINEZUMAB-[facility]) 05/02/2024 2 - Rash 9 - Itching Comments: Patient described extreme itching located on her chest and arms (bilaterally). PROCHLORPERAZINE 12/29/2023 5 - Intolerance Date Reviewed: 05/02/2024 Reviewed by: Claudia Maynard RN - Fully Assessed Reason for Visit: [...] (ZOMIG) 5 mg nasal spray Use 1 [place] in the nose as needed at onset [...] 10 mg tablet Facility-Administered Medications as of 05/13/2024 - onabotulinum toxin type A 200 Units injection (BOTOX) Problem List As Of Date 05/07/2024 Noted Resolved Seizure-like activity (HCC) [R56.9] 04/01/2022 Psychogenic nonepileptic seizure [F44.5] 10/20/2021 Intractable chronic migraine without aura and w*06/24/2022 Chronic migraine without aura, with intractable*03/22/2023 Intractable chronic migraine without aura and w*09/19/2023 Encounter Status:Closed by MU (more content not included)...NormalParkwood Hospital ClevelandIGP,APTIMA HPV,AGE GDLNon [id number] GDLN ACOG TESTINGNote. NOMS HealthcareComment on above:TESTS RESULT FLAG UNITS REF RANGE LAB Clinician Provided Cytology Information Source.............Vagina No. of containers..01 ThinPrep Vial Age Algo ACOG Becca... -20 03 FLAG LEGEND: L-Low Normal,H-High Normal,LL-Alert Low,HH-Alert High <-Panic Low,>-Panic High,A-Abnormal,AA-Critical Abnormal Performed at: 01 =[facility] [address] [place] [address] Pearl Franco MD, IGP, RFX APTIMA HPV ASCUNote.NOMS HealthcareComment on above:TESTS RESULT FLAG UNITS REF RANGE LAB DIAGNOSIS: 02 NEGATIVE FOR INTRAEPITHELIAL LESION OR MALIGNANCY. Specimen adequacy: 02 Satisfactory for evaluation. No endocervical component is identified. Performed by: Daksha Nichole, Bereavement Coordinator . 02 Note: Note 02 The Pap [...] <-Panic Low,>-Panic High,A-Abnormal,AA-Critical Abnormal Performed at: 02 [facility] [address] [place] [address] Pearl Franco MD, Performed at: =G - [facility] [address] [id number] Order Booker: Pearl Franco MD, Phone: [phone] Performed at: - [facility] [id number] Order Booker: Pearl Franco MD, Phone: [phone] SPATULA-ALONE VAGINA CLINISYNCNOMS HealthcareCBC auto differentialon 41-13-4099Whcp form neutrophils/100 WBC (Bld)3 %[facility] HospitalEosinophils (Bld) [#/Vol]0.3 10*3/uLParma Community General HospitalEosinophils/100 WBC (Bld)3 %[facility] HospitalErythrocyte distribution width (RBC) [Ratio]13.7 %11.5 - 15.0 %[facility] HospitalHematocrit (Bld) [Volume fraction]32.8 %Low35 - 47 %[facility] HospitalHemoglobin (Bld) [Mass/Vol]11.1 g/dLLow11.7 - 15.5 g/dLParma Community General HospitalInterpretation and review of laboratory resultsAbnormalParma Community General HospitalLymphocytes (Bld) [#/Vol]1.2 10*3/[facility] Lymphocytes/100 WBC (Bld)12 %[facility] HospitalMCH (RBC) [Entitic mass]29 pg27 - 34 pgPCleveland Clinic Akron General Lodi HospitalMCHC (RBC) [Mass/Vol]33.8 g/dL32 - 36 g/dL [facility] HospitalMCV (RBC) [Entitic vol]86 fL80 - 100 [facility] Science CenterMonocytes (Bld) [#/Vol]0.6 10*3/[facility] HospitalMonocytes/100 WBC (Bld)6 %[facility] HospitalNeutrophils (Bld) [#/Vol]7.6 10*3/uLHigh [facility] HospitalPlatelet mean volume (Bld) [Entitic vol]7.7 fL7 - 12 fL [facility] HospitalPlatelets (Bld) [#/Vol]225 10*3/[facility] Polychromasia LM Ql (Bld)1+AbnormalNONE^NONEParma Community General HospitalRBC (Bld) [#/Vol]3.82 10*6/uLAtrium Health Unionegmented neutrophils/100 WBC (Bld)76 %[facility] HospitalWBC corrected for nucl RBC Auto (Bld) [#/Vol]9.7 [facility] HospitalComprehensive metabolic panelon 13-01-2929Iwzpxvx [Mass/Vol]3.3 g/dL3.2 - 5.3 g/dLProGalion Community Hospital SystemALP [Catalytic activity/Vol]80 U/L39 - 130 U/[facility] Health SystemALT No additional P-5'-P [Catalytic activity/Vol]39 U/LHigh0 - 31 U/[facility] Health SystemAnion gap [Moles/Vol]7 mmol/L5 - 15 mmol/LPrAspen Valley Hospital Health SystemAST [Catalytic activity/Vol]16 U/L0 - 41 U/[facility] SystemBilirubin [Mass/Vol]0.3 mg/dL0.3 - 1.2 mg/dLParma Community General HospitalCalcium [Mass/Vol]9.2 mg/dL8.5 - 10.5 mg/dLParma Community General HospitalChloride [Moles/Vol]107 mmol/L98 - 109 mmol/[facility] SystemCO2 [Moles/Vol]27 mmol/L22 - 32 mmol/[facility] SystemCreatinine [Mass/Vol]0.55 mg/dL0.40 - 1.00 mg/dLParma Community General HospitalComment on above:METHOD TRACEABLE TO [facility] STANDARDeGFR (CKD-EPI)non-race dependent- [facility] VCUComment on above: Reported eGFR is based on the CKD-EPI 2020 equation that does not use a race coefficient. Glucose [Mass/Vol]102 mg/iZXytd28 - 99 mg/dLPar[facility] General Hospital Interpretation and review of laboratory resultsAbnormalPar[facility] Potassium [Moles/Vol]4.1 mmol/L3.5 - 5.0 mmol/[facility] Health SystemProtein [Mass/Vol]6.4 g/dL6.0 - 8.0 g/dLAtrium Health Unionodium [Moles/Vol]141 mmol/L134 - 146 mmol/[facility] SystemUrea nitrogen [Mass/Vol]9 mg/dL5 - 23 mg/dLHoly Redeemer HospitalBacteria identified Cx Nom (U)on 85-49-4714Ospudcn comment (Unsp spec) [Interp]URINE RECEIVED WITHOUT PRESERVATIVEProGalion Community Hospital SystemService comment (Unsp spec) [Interp]10-50,000 ORGANISMS/mL NORMAL UROGENITAL FLORAProKirkbride CenterBasic Metabolic Panelon 61-07-0677Wajdl gap [Moles/Vol]12 mmol/L5 - 15 mmol/LPrMercy Health – The Jewish Hospital SystemCalcium [Mass/Vol]8.9 mg/dL8.5 - 10.5 mg/dL [facility] HospitalChloride [Moles/Vol]103 mmol/L98 - 109 mmol/LPrAspen Valley Hospital Health SystemCO2 [Moles/Vol]24 mmol/L22 - 32 mmol/LPrMercy Health – [facility] Jewish Hospital System Creatinine [Mass/Vol]0.61 mg/dL0.40 - 1.00 mg/dLParma Community General HospitalComment on above:METHOD TRACEABLE TO IDDE STANDARDeGFR (CKD-EPI)non-race dependent- PINF [facility] HospitalComment on above: Reported eGFR is based on the CKD-EPI 2020 equation that does not use a race coefficient. Glucose [Mass/Vol]106 mg/kWHkkw73 - 99 mg/dLPar[facility] Community General Hospital Interpretation and review of laboratory resultsAbHealthAlliance Hospital: [facility]’s [facility] Campus Potassium [Moles/Vol]4 mmol/L3.5 - 5.0 mmol/[facility] Health SystemSodium [Moles/Vol]139 mmol/L134 - 146 mmol/LPrMercy Health – The Jewish Hospital SystemUrea nitrogen [Mass/Vol]9 mg/dL5 - 23 mg/dLHoly Redeemer HospitalCBC auto differentialon 02-35-6456Ejrf form neutrophils/100 WBC (Bld)1 %[facility] HospitalEosinophils (Bld) [#/Vol]0.8 10*3/uLRetreat Doctors' Hospital Eosinophils/100 WBC (Bld)6 %[facility] HospitalErythrocyte distribution width (RBC) [Ratio]13.5 %11.5 - 15.0 %[facility] HospitalHematocrit (Bld) [Volume fraction]32.9 %Low35 - 47 %[facility] HospitalHemoglobin (Bld) [Mass/Vol]11.2 g/dLLow11.7 - 15.5 g/dLParma Community General HospitalInterpretation and review of laboratory resultsAbHealthAlliance Hospital: Mary’s Avenue CampusLymphocytes (Bld) [#/Vol]1.5 10*3/[facility] HospitalLymphocytes/100 WBC (Bld)11 %[facility] HospitalMCH (RBC) [Entitic mass]28.8 pg27 - 34 [facility] MCHC (RBC) [Mass/Vol]34 g/dL32 - 36 g/dLParma Community General HospitalMCV (RBC) [Entitic vol]85 fL80 - 100 [facility] CenterMonocytes (Bld) [#/Vol]0.5 10*3/uLParma Community General HospitalMonocytes/100 WBC (Bld)4 %[facility] Neutrophils (Bld) [#/Vol]10.6 10*3/uLRetreat Doctors' HospitalPlatelet mean volume (Bld) [Entitic vol]7.5 fL7 - 12 [facility] CenterPlatelets (Bld) [#/Vol]232 10*3/[facility] HospitalPolychromasia LM Ql (Bld)1+Abnormal NONE^NONEParma Community General HospitalRBC (Bld) [#/Vol]3.89 10*6/[facility] Hospitalegmented neutrophils/100 WBC (Bld)78 %[facility] HospitalWBC corrected for nucl RBC Auto (Bld) [#/Vol]13.4HighGeisinger-Shamokin Area Community HospitalMRSA DNA SAURABH+probe Ql (Unsp spec)on 93-32-2565WkoNtjrruParma Community General HospitalMrsa Pcr nasal swabon 14-80-6114WPQB DNA SAURABH+probe Ql (Unsp spec) NegativeNegative^NegativeParma Community General HospitalAPTTon 86-66-7888rVOW Coag (PPP) [Time]35 [facility] JacksonBasic Metabolic Panelon 39-28-6665Vzcdv gap [Moles/Vol]10 mmol/L5 - 15 mmol/[facility] SystemCalcium [Mass/Vol]9.4 mg/dL8.5 - 10.5 mg/dLPar[facility] Community General HospitalChloride [Moles/Vol]101 mmol/L98 - 109 mmol/[facility] SystemCO2 [Moles/Vol]26 mmol/L22 - 32 mmol/[facility] HospitalCreatinine [Mass/Vol]0.61 mg/dL0.40 - 1.00 mg/dLParma Community General HospitalComment on above:METHOD TRACEABLE TO IDDE STANDARDeGFR (CKD-EPI)non-race dependent- [facility] VCUComment on above: Reported eGFR is based on the CKD-EPI 2020 equation that does not use a race coefficient. Glucose [Mass/Vol]94 mg/dL65 - 99 mg/dLParma Community General HospitalPotassium [Moles/Vol]4 mmol/L3.5 - 5.0 mmol/[facility] SystemSodium [Moles/Vol]137 mmol/L134 - 146 mmol/[facility] HospitalUrea nitrogen [Mass/Vol]10 mg/dL5 - 23 mg/dLParma Community General HospitalC-reactive proteinon 31-14-9798KOJ [Mass/Vol] 15.4 mg/dLHigh0.000 - 0.744 mg/dLParma Community General HospitalCBC auto differentialon 78-04-3144Gtpnxzxey (Bld) [#/Vol]0.1 10*3/uLParma Community General HospitalBasophils/100 WBC (Bld)0.5 %[facility] HospitalEosinophils (Bld) [#/Vol]0.2 10*3/uL [facility] HospitalEosinophils/100 WBC (Bld)1.1 %[facility] Erythrocyte distribution width (RBC) [Ratio]13.4 %11.5 - 15.0 %[facility] HospitalHematocrit (Bld) [Volume fraction]37.6 %35 - 47 %[facility] Hemoglobin (Bld) [Mass/Vol]12.8 g/dL11.7 - 15.5 g/dLPar[facility] Interpretation and review of laboratory resultsAbnormalPar[facility] Hospital Lymphocytes (Bld) [#/Vol]1.3 10*3/uLParma Community General HospitalLymphocytes/100 WBC (Bld)6.7 %[facility] HospitalH (RBC) [Entitic mass]28.7 pg27 - 34 pg [facility] HospitalMCHC (RBC) [Mass/Vol]34.1 g/dL32 - 36 g/dLParma Community General HospitalMCV (RBC) [Entitic vol]84 fL80 - 100 [facility] Monocytes (Bld) [#/Vol]0.7 10*3/[facility] HospitalMonocytes/100 WBC (Bld) 3.5 %[facility] HospitalNeutrophils (Bld) [#/Vol]17.2 10*3/uLHighParma Community General HospitalNeutrophils/100 WBC (Bld)88.2 %[facility] HospitalPlatelet mean volume (Bld) [Entitic vol]8.5 fL7 - 12 [facility] SystemPlatelets (Bld) [#/Vol]290 10*3/[facility] HospitalRBC (Bld) [#/Vol]4.46 10*6/[facility] HospitalWBC corrected for nucl RBC Auto (Bld) [#/Vol]19.6HighHoly Redeemer HospitalCRP [Mass/Vol]on 39-73-9669Wtcjgvhchkhtcv and review of laboratory resultsAbnormalHoly Redeemer HospitalCT Abdomen and Pelvis W contrast Pat 22-12-2298WN ABDOMEN AND PELVIS W CONT HISTORY: Abdominal pain, oophorectomy 03/28/2024 and lysis of adhesions COMPARISON: 02/10/2024 and earlier TECHNIQUE: CT images of abdomen and pelvis obtained following administration of contrast. Automatedexposure control was utilized. All CT scans at [...] or large bowel. The appendix is surgically absent.Colonic diverticulosis. PERITONEUM/RETROPERITONEUM: Focal inflammation along the inferior [...] using oral contrast might be considered if indicatedclinically. THIS REPORT CONTAINS A SIGNIFICANT RESULT AND/OR [...] by Kyle Solorio MD on 04/08/2024 4:09 PMSECTRAPACSKyle Solorio MD - 04/08/2024 CT ABDOMEN AND PELVIS W CONT HISTORY: Abdominal pain, oophorectomy 03/28/2024 and lysis of adhesions COMPARISON: 02/10/2024 and earlier TECHNIQUE: CT images of abdomen and pelvis obtained following administration of contrast. Automatedexposure control was utilized. All CT scans at [...] or large bowel. The appendix is surgically absent.Colonic diverticulosis. PERITONEUM/RETROPERITONEUM: Focal inflammation along the inferior [...] using oral contrast might be considered if indicatedclinically. THIS REPORT CONTAINS A SIGNIFICANT RESULT AND/OR [...] Kyle Solorio MD on 04/08/2024 4:09 PM [facility] SystemRadiology Study observation (narrative)[facility] [employer] [facility] For Special SurgeryCT Abdomen and Pelvis W contrast IVOrdered By: Kyle Solorio on 04-08-2024 [facility] [employer] [facility] Work Phone: ecg 12 leadon 27-38-5570BGYEPOURMNUSQNXrjEomlnh Health SystemLaboratory - Microbiology and Antimicrobial susceptibilityon 04-08-2024 FLUAV+FLUBV RNA SAURABH+probe Ql (Unsp spec)NegativeNegative^NegativeGood Samaritan Hospital SystemLactate (P anuradha) [Moles/Vol]on 56-17-1160KkrKopfjrParma Community General Hospital Lactate w/ Reflexon 20-39-2204Qevhhey (P anuradha) [Moles/Vol]0.8 mmol/L0.4 - 2.0 mmol/[facility] SystemComment on above: Result did not trigger repeat Lactate, re-order if needed. Liver panelon 91-49-5397Aapdwid [Mass/Vol]3.9 g/dL3.2 - 5.3 g/dLParma Community General HospitalALP [Catalytic activity/Vol]88 U/L39 - 130 U/[facility] SystemALT No additional P-5'-P [Catalytic activity/Vol]59 U/LHigh0 - 31 U/[facility] SystemAST [Catalytic activity/Vol]26 U/L0 - 41 U/[facility] System Bilirubin [Mass/Vol]0.7 mg/dL0.3 - 1.2 mg/dLPar[facility] Bilirubin.direct [Mass/Vol]0 mg/dL0.0 - 0.4 mg/dLPar[facility] Interpretation and review of laboratory resultsAbnormalPar[facility] Protein [Mass/Vol]7.3 g/dL6.0 - 8.0 g/dLParma Community General HospitalMagnesiumon 22-94-7061Izfunczli [Mass/Vol]1.8 mg/dL1.8 - 2.6 mg/dLParma Community General HospitalNo Panel Informationon 97-90-8302DtgJiaageHoly Redeemer HospitalPOCT Nursing Urine Macroscopic UAon 78-74-7386Ovpxwbcfb Ql (U)Negative Negative^NegativeProMedica Health SystemGlucose [Mass/Vol]Negative Negative^Negative mg/dLParma Community General HospitalHemoglobin Ql (U)TraceAbnormal Negative^NegativeParma Community General HospitalInterpretation and review of laboratory resultsAbnoECU Health Roanoke-Chowan HospitalKetones (U) [Mass/Vol]Negative Negative^Negative mg/dLParma Community General HospitalLeukocyte esterase Test strip Ql (U)NegativeNegative^NegativeParma Community General HospitalNitrite Ql (U)Negative Negative^NegativeParma Community General HospitalpH (U)7.5 [pH]5.0 - 8.5PCleveland Clinic Akron General Lodi HospitalProtein Ql (U)TraceAbnormalNegative^Negative mg/dLPar[facility] Hospital Specific gravity (U) [Rel density]1.021.003 - 1.035[facility] Urobilinogen Qn (U)0.2NINFHoly Redeemer HospitalProtime & INRon 57-45-3896CWO Coag (PPP) [Relative time]1.3 {INR}HighParma Community General HospitalInterpretation and review of laboratory resultsAbnoECU Health Roanoke-Chowan HospitalPT Coag (PPP) [Time]14.7 sHigECU Health Beaufort HospitalARS/FLU A+B/RSV by NAAT/Molecular (M4RT Collection Tube)on 16-53-6018HWW RNA SAURABH+probe Nom (Unsp spec)NegativeNegative^NegativeAtrium Health UnionARS-CoV-2 (COVID-19) RNA SAURABH+probe Ql (Resp)Not detectedNot Detected^Not DetectedParma Community General Hospital Comment on above:NOTE The Xpert Xpress SARS-CoV-2/Flu/RSV Plus test is [...] operators who are performing tests using either GramVaani or [employer] systems and is limited to laboratories that [...] specimen repeat. Fact Sheet for Healthcare Providers: https://www.fda.gov/media/139629/download Fact Sheet for Patients: https://www.fda.gov/media/425761/download [facility] HospitalThyroid profile includes TSH FT4on 15-05-0976Dsrx T4 [Mass/Vol]0.62 ng/dL0.61 - 1.60 ng/dLParma Community General HospitalTSH Qn0.54 m[IU]/L [facility] HospitalTroponin I, High Sensitivityon 33-00-8802Ztihksum I.cardiac High sensitivity method [Mass/Vol]2 ng/LNINF - 16 ng/LProMedOur Lady of Mercy HospitalTroponin I, High Sensitivity 1 Houron 04-08-2024 Troponin I.cardiac High sensitivity method [Mass/Vol]2 ng/LNINF - 16 ng/L [facility] HospitalTroponin I.cardiac High sensitivity method [Mass/Vol]on 42-27-6607BxvQpioxyHoly Redeemer HospitalXR Chest Single viewon 04-08-2024 XR CHEST 1 VW History: Short of breath. One view study. Comparison: 01/23/2024 Impression: * Lungs are now clear. No focal airspace disease or infiltrate is appreciated. No acute process is seen. Finalized by Renetta Andrea MD on 04/08/2024 2:12 PMSECTRAEast Mississippi State Hospitalmarbin, Renetta Gentile MD - 04/08/2024 XR CHEST 1 VW History: Short of breath. One view study. Comparison: 01/23/2024 Impression: * Lungs are now clear. No focal airspace disease or infiltrate is appreciated. No acute process is seen. Finalized by Renetta Andrea MD on 04/08/2024 2:12 PM [facility] HospitalRadiology Study observation (narrative)[facility] Hospital SystemXR Chest Single viewOrdered By: Renetta Andrea on [id number] Community General Hospital Work Phone: ecg 12 leadon [id number] Health SystemABO Rh Repeaton [id number] Community HospitalRh Nom (Bld)Positive [facility] SystemType and screen(includes indirect ady)on [id number] Community HospitalRh Nom (Bld)PositiveAspirus Wausau Hospital SystemRespiratory allergy panelon 03-21-2024. alternata IgE Qn (S)kU/LNINF - 0.10 kU/LProMedica Health SystemComment on above: Class 0: NormalA. fumigatus IgE Qn (S)kU/LNINF - 0.10 kU/LProMedica Health SystemComment on above:Class 0: NormalAmerican house dust mite IgE Qn (S)kU/L NINF - 0.10 kU/LProMedica Health SystemComment on above:Class 0: NormalBermuda grass IgE Qn (S)0.95 kU/LHighNINF - 0.10 kU/LProMedica Health SystemComment on above:Class 2:Moderate level of Allergy, indicative of stronger ongoing sensitization Boxelder IgE Qn (S)0.15 kU/LHighNINF - 0.10 kU/LProMedica Health SystemComment on above:Class 0/1: Low level of Allergy, ongoing sensitization C. herbarum IgE Qn (S)kU/LNINF - 0.10 kU/LProMedica Health SystemComment on above:Class 0: NormalCalifornia Davenport Pollen IgE Qn (S)kU/LNINF - 0.10 kU/L [facility] SystemComment on above:Class 0: NormalCat dander IgE Qn (S)6.53 kU/LHighNINF - 0.10 kU/LProMedica Health SystemComment on above:Class 3:High level of Allergy, indicative of high level sensitization Cocklebur IgE Qn (S)0.14 kU/LHighNINF - 0.10 kU/LProMedica Health SystemComment on above:Class 0/1: Low level of Allergy, ongoing sensitization Cockroach IgE Qn (S)kU/LNINF - 0.10 kU/LProMedica Health SystemComment on above: Class 0: NormalCommon Pigweed IgE Qn (S)kU/LNINF - 0.10 kU/LProMedica Health SystemComment on above:Class 0: NormalCommon Ragweed IgE Qn (S)0.37 kU/LHighNINF - 0.10 kU/LProMedica Health SystemComment on above:Class 1:Low level of Allergy, indicative of ongoing sensitization [place] IgE Qn (S)0.25 kU/LHighNINF - 0.10 kU/LProMedica Health SystemComment on above:Class 0/1: Low level of Allergy, ongoing sensitization Dog dander IgE Qn (S)52.5 kU/LHighNINF - 0.10 kU/LProMedica Health SystemComment on above:Class 5:Very High level of Allergy,indicative of very high level sensitization house dust mite IgE Qn (S)kU/LNINF - 0.10 kU/LProMedica Health System Comment on above:Class 0: NormalGoosefoot IgE Qn (S)kU/LNINF - 0.10 kU/L [facility] Health SystemComment on above:Class 0: NormalIgE Qn602 [IU]/LHigh ProMst. vincent's chilton Health SystemInterpretation and review of laboratory resultsAbnormal [facility] SystemJohnson grass IgE Qn (S)0.96 kU/LHighNINF - 0.10 kU/L [facility] SystemComment on above:Class 2:Moderate level of Allergy, indicative of stronger ongoing sensitization [place] blue grass IgE Qn (S)2.55 kU/LHighNINF - 0.10 kU/LProMedica Health SystemComment on above:Class 2:Moderate level of Allergy, indicative of stronger ongoing sensitization Judge Plane IgE Qn (S)kU/LNINF - 0.10 kU/LProMedica Health SystemComment on above:Class 0: NormalMarsh Elder IgE Qn (S)kU/LNINF - 0.10 kU/LProMedica Health SystemComment on above:Class 0: NormalMountain Juniper IgE Qn (S)kU/LNINF - 0.10 kU/LProMedica Health SystemComment on above:Class 0: NormalMouse urine proteins IgE Qn (S)0.34 kU/LHighNINF - 0.10 kU/LProMedica Health SystemComment on above: Class 0/1: Low level of Allergy, ongoing sensitization Mugwort IgE Qn (S)kU/LNINF - 0.10 kU/LProMedica Health SystemComment on above: Class 0: NormalNettle IgE Qn (S)kU/LNINF - 0.10 kU/LProMedica Health System Comment on above:Class 0: NormalP. notatum IgE Qn (S)kU/LNINF - 0.10 kU/L [facility] SystemComment on above:Class 0: NormalPecan or Amador Tree IgE Qn (S)0.17 kU/LHighNINF - 0.10 kU/LProMedica Health SystemComment on above: Class 0/1: Low level of Allergy, ongoing sensitization Saltwort IgE Qn (S)0.38 kU/LHighNINF - 0.10 kU/LProMedica Health SystemComment on above:Class 1:Low level of Allergy, indicative of ongoing sensitization Sheep Tununak IgE Qn (S)kU/LNINF - 0.10 kU/LProMedica Health SystemComment on above:Class 0: NormalSilver Birch IgE Qn (S)kU/LNINF - 0.10 kU/LProMedica Health SystemComment on above:Class 0: NormalTimothy IgE Qn (S)1.92 kU/LHighNINF - 0.10 kU/LProMedica Health SystemComment on above:Class 2:Moderate level of Allergy, indicative of stronger ongoing sensitization [place] IgE Qn (S)kU/LNINF - 0.10 kU/LProMedica [facility] SystemComment on above: Class 0: NormalWhite Elm IgE Qn (S)kU/LNINF - 0.10 kU/LProMedica Health System Comment on above:Class 0: NormalWhite mulberry IgE Qn (S)kU/LNINF - 0.10 kU/L [facility] SystemComment on above:Class 0: NormalWhite Taylors [place] IgE Qn (S)kU/L NINF - 0.10 kU/LProMedica [facility]uff[facility] Hospital SystemComment on above:Class 0: NormalParma Community General HospitalPulmonary function test Spirometry (Flow Volume Loop)Ordered By: Dinorah Cummins on 90-54-8100XipWnmfumParma Community General HospitalCA 125on 89-80-6156Lsleye Ag 125 Qn7 [arb'U]/mL0 - 35 U/mLParma Community General HospitalComment on above: The method used for this test is Olga Berggi DXI chemiluminescent immunoassay. Values obtained by different assay methods cannot be used interchangeably. CBC auto differentialon [id number] (Bld) [#/Vol]0 10*3/uLParma Community General HospitalBasophils/100 WBC (Bld)0.6 %[facility] HospitalEosinophils (Bld) [#/Vol]0.5 10*3/uLHighParma Community General HospitalEosinophils/100 WBC (Bld)8.4 %[facility] HospitalErythrocyte distribution width (RBC) [Ratio]13.6 %11.5 - 15.0 %[facility] HospitalHematocrit (Bld) [Volume fraction]40.6 %35 - 47 % [facility] HospitalHemoglobin (Bld) [Mass/Vol]13.7 g/dL11.7 - 15.5 g/dL [facility] HospitalInterpretation and review of laboratory resultsAbnormal [facility] HospitalLymphocytes (Bld) [#/Vol]1.3 10*3/uLParma Community General HospitalLymphocytes/100 WBC (Bld)23.5 %[facility] HospitalMCH (RBC) [Entitic mass]29.2 pg27 - 34 [facility] HospitalMCHC (RBC) [Mass/Vol]33.7 g/dL32 - 36 g/dLParma Community General HospitalMCV (RBC) [Entitic vol]87 fL80 - 100 [facility] Science CenterMonocytes (Bld) [#/Vol]0.3 10*3/uLParma Community General Hospital Monocytes/100 WBC (Bld)5.3 %[facility] HospitalNeutrophils (Bld) [#/Vol]3.5 10*3/uLParma Community General HospitalNeutrophils/100 WBC (Bld)62.2 %[facility] HospitalPlatelet mean volume (Bld) [Entitic vol]8.9 fL7 - 12 [facility] Science CenterPlatelets (Bld) [#/Vol]233 10*3/uLParma Community General HospitalRBC (Bld) [#/Vol] 4.67 10*6/[facility] South[facility] HospitalWBC corrected for nucl RBC Auto (Bld) [#/Vol] 5.7[facility] SystemCEAon 03-18-2024 Carcinoembryonic Ag [Mass/Vol]0.9 ng/mL0.0 - 3.0 ng/mLParma Community General Hospital Comment on above: 0.0-3.0 ng/mL FOR NON SMOKERS 0.0-5.0 ng/mL FOR SMOKERS The method used for this test is Olga Swarthmore DXI chemiluminescent immunoassay. Values obtained by different assay methods cannot be used interchangeably. Cancer Ag 125 Qnon 03-73-3319AqlXvrtsuParma Community General HospitalCancer Ag 19-9 Qnon 05-61-3178ZdrLezinuParma Community General HospitalCancer antigen 19-9on 09-15-1885Jnaauf Ag 19-9 QnU/mL0.0 - 35.0 U/mLAvita Health System [employer] [facility] Hospital For Special SurgeryComment on above: The method used for this test is Olga Swarthmore DXI chemiluminescent immunoassay. Values obtained by different assay methods cannot be used interchangeably. Carcinoembryonic Ag [Mass/Vol]on 60-64-8676CuoVdovig Health SystemComprehensive metabolic panelon 83-42-9838Lpyqasj [Mass/Vol]4.3 g/dL3.2 - 5.3 g/dLProRussellville Hospital Health SystemALP [Catalytic activity/Vol]51 U/L39 - 130 U/LProMedica Health SystemALT No additional P-5'-P [Catalytic activity/Vol]21 U/L0 - 31 U/[facility] Health SystemAnion gap [Moles/Vol]10 mmol/L5 - 15 mmol/LProMedica Health System AST [Catalytic activity/Vol]15 U/L0 - 41 U/LProMedjack hughston memorial hospital Health SystemBilirubin [Mass/Vol]0.5 mg/dL0.3 - 1.2 mg/dLGood Samaritan Hospital SystemCalcium [Mass/Vol]9.2 mg/dL8.5 - 10.5 mg/dLGood Samaritan Hospital SystemChloride [Moles/Vol]104 mmol/L98 - 109 mmol/[facility] Health SystemCO2 [Moles/Vol]27 mmol/L22 - 32 mmol/[facility] SystemCreatinine [Mass/Vol]0.62 mg/dL0.40 - 1.00 mg/dLParma Community General HospitalComment on above:METHOD TRACEABLE TO IDDE STANDARDeGFR (CKD-EPI)non-race dependent- [facility] VCUComment on above: Reported eGFR is based on the CKD-EPI 2020 equation that does not use a race coefficient. Glucose [Mass/Vol]88 mg/dL65 - 99 mg/dLParma Community General HospitalInterpretation and review of laboratory resultsAbnormalGood Samaritan Hospital SystemPotassium [Moles/Vol]3.4 mmol/LLow3.5 - 5.0 mmol/LProMedica Health SystemProtein [Mass/Vol]6.6 g/dL6.0 - 8.0 g/dLGood Samaritan Hospital SystemSodium [Moles/Vol]141 mmol/L134 - 146 mmol/[facility]ica Health SystemUrea nitrogen [Mass/Vol]12 mg/dL5 - 23 mg/dLAspirus Wausau Hospital SystemCNPNon [id number] Telephone ([facility]) APRIL NICHOLSON ([id number]) 1995 F Date Time Provider Department 02/22/24 SAGAR BARTH [facility] During your visit today, we recorded the following information about you: Jannette Castrejon RN 02/22/2024 12:04 PM Signed Prior Authorization submitted via [employer]hentic[employer] on 02/22/2024: Insurance: [place] Medicaid Medication: Zolmitriptan Chong Code: [id number] Awaiting Response Jannette Castrejon RN 03/14/2024 2:23 PM Signed Allergies As [...] 14 - Other: See Comments Comments: Migrianes PYRILAMINE-DEXTROMETHORPHAN 01/07/2022 4 - Hives REGLAN (METOCLOPRAMIDE) 12/03/2021 5 - Intolerance VORTIOXETINE 08/06/2021 4 - Hives PROCHLORPERAZINE 12/29/2023 5 - Intolerance Date Reviewed: 01/22/2024 Reviewed by: Raiza Shields APRN.NURSE'S AIDES TEACHER - Fully Assessed Reason for Visit: Insurance Authorization [[id number]] Cmt: Zolmitriptan Prescriptions as of 03/14/2024 - ZOLMitriptan (ZOMIG) 5 mg nasal spray Use 1 [place] in the nose as needed at onset [...] 10 mg tablet Facility-Administered Medications as of 03/14/2024 - onabotulinum toxin type A 200 Units injection (BOTOX) Problem List As Of Date 02/22/2024 Noted Resolved Seizure-like activity (HCC) [R56.9] 04/01/2022 Psychogenic nonepileptic seizure [F44.5] 10/20/2021 Intractable chronic migraine without aura and w*06/24/2022 Chronic migraine without aura, with intractable*03/22/2023 Intractable chronic migraine without aura and w*09/19/2023 Encounter Status:Closed by JANNETTE CASTREJON on 02/22/24[facility] PELVIS W/ TRANSVAGINALon [id number][place] [address] Ultrasound Report Signed Patient: MARGARET NICHOLSON MR#: [id number] : 1995 Acct:[id number] Age/Sex: 28 / F ADM Date: 02/19/24 Loc: US Attending Dr: Zay Blas D.O. Ordering Physician: Zay Blas D.O. Date of Service: 02/19/24 Procedure(s): US pelvis w/ transvaginal Accession Number(s): [id number] cc: Zay Blas D.O.; Lamont Blair M.D. [address] [place] [address] Patient Name: MARGARET NICHOLSON MRN: [id number] date: 1995 Sex: F Assigned Patient Location: US Current Patient Location: [place] Accession/Order Number: [id number] Exam Date: 02/19/2024 07:11 Report Date: 02/19/2024 08:05 At the request of: ZAY BLAS Procedure: US pelvis w/ transvaginal EXAMINATION: [...] ovary. 3. Prior hysterectomy. Electronically authenticated by: LOPEZ REYNOLDS Date: 02/19/2024 08:05 Dictated By: Lopez Reynolds M.D. Signed By: 02/19/24807 DD/ 4 TD/TT: Agronomy Research Manager:TBHRadiology, Radiologist, - 02/19/2024 [address] [place] [id number] Ultrasound Report Signed Patient: MARGARET NICHOLSON MR#: [id number] : 1995 Acct:[id number] Age/Sex: 28 / F ADM Date: 02/19/24 Loc: US Attending Dr: Zay Blas D.O. Ordering Physician: Zay Blas D.O. Date of Service: 02/19/24 Procedure(s): US pelvis w/ transvaginal Accession Number(s): [id number] cc: Zay Blas D.O.; Lamont Blair M.D. [place] [address] Patient Name: MARGARET NICHOLSON MRN: [id number] date: 1995 Sex: F Assigned Patient Location: US Current Patient Location: US Accession/Order Number: [id number] Exam Date: 02/19/2024 07:11 Report Date: 02/19/2024 08:05 At the request of: ZAY BLAS Procedure: US pelvis w/ transvaginal EXAMINATION: [...] ovary. 3. Prior hysterectomy. Electronically authenticated by: LOPEZ REYNOLDS Date: 02/19/2024 08:05 Dictated By: Lopez Reynolds M.D. Signed By: 02/19/24807 DD/ 4 TD/TT: Agronomy Research Manager: ARLEN HealthcareRadiology Study observation (narrative)NOMKrupa HealthcareUS PELVIS W/ TRANSVAGINALOrdered By: Radiologist Radiology on [id number] Healthcare Work Phone: Pathology Request for Lab Corpon [id number] Request for Lab CorpNormAdventHealth DeLand Physician GroupComment on above:Order Comment: PATHOLOGY GI SPECIMENResult Comment: See report. Scanned copy available in EMR. PERFORMED BY: [place] [address] PATHOLOGIST [employer]IPE [employer]TER [employer] PALOMO JOYCE M.D.Performed By: #### PATH TO [facility] #### [place] [address] USACNPNon [id number] ([facility]) APRIL NICHOLSON ([id number]) 1995 F Date Time Provider Department 01/29/24 SAGAR BARTH [facility] During your visit today, we recorded the following information about you: Kelsey Patel 01/29/2024 10:53 AM Signed Name of Caller: nicky Relationship to patient: pharmacy Last visit in this department: 09/19/2023 Reason for Call: Other : need to verify quantity on zolmitriptan. Callback number: [phone] Amy Shrestha MA 01/29/2024 12:06 PM Signed Per last Rx on 11/10/2023: Disp Refills Start End ZOLMitriptan (ZOMIG) 5 mg nasal spray 10 Each 5 11/10/2023 -- Sig: Use 1 [place] in the nose as needed at onset [...] spray 12 Each 5 Sig: Use 1 [place] in the nose as needed at onset [...] 14 - Other: See Comments Comments: Migrianes PYRILAMINE-DEXTROMETHORPHAN 01/07/2022 4 - Hives REGLAN (METOCLOPRAMIDE) 12/03/2021 5 - Intolerance VORTIOXETINE 08/06/2021 4 - Hives PROCHLORPERAZINE 12/29/2023 5 - Intolerance Date Reviewed: 01/22/2024 Reviewed by: Raiza Shields APRN.NURSE'S AIDES TEACHER - Fully Assessed Order(s):ZOLMitriptan (ZOMIG) 5 mg nasal sprayUse 1 [place] in the nose as needed at onset of migraine headache. If symptoms persist or return, may repeat dose in other nostril after 2 hours. Maximum of 2 sprays per 24 hoursDisp: 12 EachRfl: 5 Prescriptions as of 02/01/2024 - ZOLMitriptan (ZOMIG) 5 mg nasal spray Use 1 [place] in the nose as needed at onset [...] 10 mg tablet Facility-Administered Medications as of 02/01/2024 - onabotulinum toxin type A 200 Units injection (BOTOX) Problem List As Of Date 01/29/2024 Noted Resolved Seizure-like activity (HCC) [R56.9] 04/01/2022 Psychogenic nonepileptic seizure [F44.5] 10/20/2021 Intractable chronic migraine without aura and w*06/24/2022 Chronic migraine without aura, with intractable*03/22/2023 Intractable chronic migraine without aura and w*09/19/2023 Prescriptions ordered this encounter Disp Refills Start End ZOLMITRIPTAN 5 MG NASAL SPRAY 12 E* 5 01/30/2024 Route: NASAL Sig: Use 1 [place] in the nose as needed at onset of migraine headache. If symptoms persist or return, may repeat dose in other nostril after 2 hours. Maximum of 2 sprays per 24 hours Medications Discontinued During This Encounter Prescriptions - ZOLMitriptan (ZOMIG) 5 mg nasal spray (Discontinued) Use 1 [place] in the nose as needed at onset of migraine headache. If symptoms persist or return, may repeat dose in other nostril after 2 hours. Maximum of 2 sprays per 24 hours Encounter Status:Closed by KELSEY PATEL on 01/30/24[facility] [id number] Visit (NHMNS2) NICHOLSONCAROLINA ROGERSRA Fernández ([id number]) 1995 F Date Time Provider Department 01/22/24 2:30 PM RAIZA SHIELDS [facility] During your visit today, we recorded the following information about you: Raiza Shields APRN.[facility] 01/22/2024 1:57 PM Signed Headache Center [...] Lymph 1.00 - 4.00 k/uL 0.84 Abs [place] <0.87 k/uL 0.06 Abs Eosin <0.46 k/uL [...] ZOLMitriptan (ZOMIG) 5 mg nasal sprayUse 1 [place] in the nose as needed at onset [...] and clear, coherent, and relevant. 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 Ibis Pedraza TESTPositivePremier Health Upper Valley Medical CenterComselect specialty hospital-[place] on above: Performed By: #### BMP #### [facility] [address] [place] [address] Dr. Ibis An excess Calc (Bld) [Moles/Vol]-1.6000 mmol/LNormal-2.0-2.0The [facility] on above:Performed By: #### BMP #### [facility] [address] [place] [address] Francis HospitalComselect specialty hospital-[place] on above: Performed By: #### BMP #### [facility] [address] [place] [address] Dr. Ibis JimenezCPAPRegency Hospital Cleveland East on above:Performed By: #### BMP #### [facility] [address] [place] [address] Dr. Ibis JimenezCovbbFXQ8MwwlalGpdRegency Hospital Cleveland East on above:Performed By: #### BMP #### [facility] [address] [place] [address] Dr. Ibis JimenezHCO3 (Bld) [Moles/Vol]23.8 mmol/ASbtyol96.0-26.0The [facility] on above:Performed By: #### BMP #### [facility] [address] [place] [address] Dr. Ibis JimenezLPMNParkview Health Montpelier Hospital on above:Performed By: #### BMP #### [facility] [address] [address] [address] Ibis Sheffield Mercy HealthComment on above: Performed By: #### BMP #### [facility] [address] [address] [address] Ibis Amezquita (Bld) [Partial pressure]75.5 mm[Hg]Critically low 80.0-100.0The [facility] HamiltonComment on above:Performed By: #### BMP #### [facility] [address] [address] [address] Ibis Amezquita saturation in Blood95.8 %Obngwj45.0-100.0The [facility] HamiltonComment on above:Performed By: #### BMP #### [facility] [address] [place] [address] Dr. Ibis JimenezPCO241.8 czDxLziepw23.0-45.0The [facility] HamiltonComselect specialty hospital-[place] on above:Performed By: #### BMP #### [facility] [address] [place] [address] Dr. Ibis JimenezTrinity Health System Twin City Medical CenterComselect specialty hospital-[place] on above:Performed By: #### BMP #### [facility] [address] [place] [address] Dr. Ibis JimenezpH (Bld)7.363 [pH]Normal7.350-7.450The [facility] HamiltonComselect specialty hospital-[place] on above:Performed By: #### BMP #### [facility] [address] [place] [address] Dr. Ibis RennerormalThe [facility] HamiltonComselect specialty hospital-[place] on above:Performed By: #### BMP #### [facility] [address] [place] [address] Dr. Ibis JimenezKettering Health Main CampusComselect specialty hospital-[place] on above:Performed By: #### BMP #### [facility] [address] [place] [address] Dr. Ibis Lindsey [facility] HospitalComselect specialty hospital-[place] on above: Performed By: #### BMP #### [facility] [address] [place] [address] Dr. Ibis OliveiraThe [facility] HamiltonComment on above:Performed By: #### BMP #### [facility] [address] [place] [address] Dr. Ibis Chow [facility] Children's Medical CenterComment on above:Performed By: #### BMP #### [facility] [address] [place] [address] Dr. Ibis JimenezWright-Patterson Medical CenterComment on above:Performed By: #### BMP #### [facility] [address] [place] [address] Dr. Ibis Alexis AUTO DIFFon [id number] #0.0 103/ulNormal0.0-0.1The [facility]red Hospital Daytonment on above:Performed By: #### ACET, SALYC #### [facility] [address] [place] [address] Dr. Ibis JimenezBasophils/100 WBC (Bld)0.5 %Normal0.2-2.0[facility] Comment on above:Performed By: #### ACET, SALYC #### [facility] [address] [place] [address] Dr. Ibis Acevedo #0.3 103/ulNormal0.0-0.7The [facility] HamiltonComselect specialty hospital-[place] on above: Performed By: #### ACET, SALYC #### [facility] [address] [place] [address] Dr. Ibis Rojasosinophils/100 WBC (Bld)4.2 %Normal0.9-7.0[facility] Comment on above:Performed By: #### ACET, SALYC #### [facility] [address] [place] [address] Dr. Ibis Rojasrythrocyte distribution width (RBC) [Ratio]13.2 %Wwjwwo55.0-15.0 [facility] HospitalComment on above:Performed By: #### ACET, SALYC #### [facility] [address] [place] [address] Dr. Ibis JimenezHematocrit (Bld) [Volume fraction]36.5 %Qvycdq51.0-48.0The [facility] HamiltonComment on above:Performed By: #### ACET, SALYC #### [facility] [address] [place] [address] Dr. Ibis JimenezHemoglobin (Bld) [Mass/Vol]11.7 g/dLCritically low12.0-16.0The [facility] HamiltonComment on above:Performed By: #### ACET, SALYC #### [facility] [address] [place] [address] Dr. Ibis Soto #0.05 10e3/ulCritically high0.00-0.03The [facility] Comment on above:Performed By: #### ACET, SALYC #### [facility] [address] [place] [address] Dr. Ibis Soto %0.8 %Critically high0.0-0.5The [facility] HamiltonComment on above:Performed By: #### ACET, SALYC #### [facility] [address] [place] [address] Dr. Ibis Monsalve #1.7 103/ulNormal1.2-3.8The [facility] HamiltonComment on above:Performed By: #### ACET, SALYC #### [facility] [address] [place] [address] Dr. Ibis Brennerhocytes/100 WBC (Bld)26.9 %Hcngil27.5-60.0The [facility] HamiltonComment on above:Performed By: #### ACET, SALYC #### [facility] [address] [place] [address] Dr. Ibis NewtonUAL DIFF REQNONormalThe [facility] HamiltonComment on above: Performed By: #### ACET, SALYC #### [facility] [address] [place] [address] Dr. Ibis Irby (RBC) [Entitic mass]28.7 aeTmsypr29.7-34.0The [facility] HamiltonComment on above:Performed By: #### ACET, SALYC #### [facility] [address] [place] [address] Dr. Ibis Frank (RBC) [Mass/Vol]32.1 g/kRCsmkyz51.9-35.2The [facility] HamiltonComment on above:Performed By: #### ACET, SALYC #### [facility] [address] [place] [address] Dr. Ibis Frank (RBC) [Entitic vol]89.7 xQLerrst32.0-99.0The [facility] HamiltonComment on above:Performed By: #### ACET, SALYC #### [facility] [address] [place] [address] Dr. Ibis Magallanes #0.6 103/ulNormal0.3-0.8The [facility] HamiltonComment on above:Performed By: #### ACET, SALYC #### [facility] [address] [place] [address] Dr. Ibis Barbaocytes/100 WBC (Bld)8.9 %Normal1.7-12.0The [facility] Comment on above:Performed By: #### ACET, SALYC #### [facility] [address] [place] [address] Dr. Ibis Schultz #3.8 103/ulNormal1.4-6.5The [facility] HamiltonComment on above:Performed By: #### ACET, SALYC #### [facility] [address] [place] [address] Dr. Ibis Hiutrophils/100 WBC (Bld)58.7 %Mxuors81.0-75.0The [facility] HamiltonComment on above:Performed By: #### ACET, SALYC #### [facility] [address] [place] [address] Dr. Ibis Faye mean volume (Bld) [Entitic vol]9.3 fLCritically low 9.5-13.5The [facility] HamiltonComment on above:Performed By: #### ACET, SALYC #### [facility] [address] [place] [address] Dr. Ibis JimenezPLT188 103/stNmyfwq471-132Jgy [facility] on above: Performed By: #### ACET, SALYC #### [facility] [address] [address] [address] Ibis ConleyC4.07 106/ulCritically low4.20-5.40The [facility] on above:Performed By: #### ACET, SALYC #### [facility] [address] [place] [address] Dr. Ibis JimenezWBC6.4 103/ulNormal4.0-11.0[facility] on above: Performed By: #### ACET, SALYC #### [facility] [address] [place] [address] Dr. Ibis Cristina SCREEN RAPID (URINE)on [id number]Z [facility] HospitalComselect [facility] on above:Performed By: #### BMP #### [facility] [address] [place] [address] Dr. Ibis ParkinsonPositiveAbnormalNEGATIVEGrand [facility] on above: Performed By: #### BMP #### [facility] [address] [place] [address] Dr. Ibis MarquesPNegativeNormalNEGATIVEGrand [facility] on above: Performed By: #### BMP #### [facility] [address] [place] [address] Dr. Ibis MartinZOPositiveAbnormalNEGATIVEGood Samaritan HospitalComselect [facility] on above: Performed By: #### BMP #### [facility] [address] [place] [address] Dr. Ibis DanielCNegativeNormalNEGATIVEGood Samaritan HospitalComselect [facility] on above: Performed By: #### BMP #### [facility] [address] [place] [address] Dr. Ibis Yan-OhioHealth O'Bleness HospitalComment on above: Result Comment: AMP (Amphetamine): 500ng/mL, BAR (Barbituates): 200 ng/mL, BZO (Benzodiazepines): 150 ng/mL, BUP (Buprenorphine): 10 ng/mL, SEMAJ (Cocaine): 150 ng/mL, mAMP (Methamphetamine): 500 ng/mL, MTD (Methadone): 200 ng/mL, OPI (Opiates): 100 ng/mL, OXY (Oxycodone): 100 ng/mL, PCP (Phencyclidine): 25 ng/mL, PPX (Propoxyphene): 300 ng/mL, THC (Cannabinoids): 50 ng/mL, TCA (Trycyclic Antidepressants): 300 ng/mLPerformed By: #### BMP #### [facility] [address] [place] [address] Dr. Ibis JimenezDRUG CUT HEADERDRUG CLASS TEST SYSTEM CUT-OFF CONCENTRATIONS ARE FOLLOWS:NormalGrand [facility] on above:Performed By: #### BMP #### [facility] [address] [place] [address] Dr. Ibis JimenezmAMPNegativeNormalNEGATIVEGood Samaritan HospitalComment on above: Performed By: #### BMP #### [facility] [address] [place] [address] Dr. Ibis JimenezMTDNegativeNormalNEGATIVEGrand [facility] on above: Performed By: #### BMP #### [facility] [address] [place] [address] Dr. Ibis SenINegativeNormalNEGATIVEGrand [facility] on above: Performed By: #### BMP #### [facility] [address] [place] [address] Dr. Ibis JimenezOXYNegativeNormalNEGATIVEGrand [facility] on above: Performed By: #### BMP #### [facility] [address] [place] [address] Dr. Ibis JimenezPCPNegativeNormalNEGATIVEGrand [facility] on above: Performed By: #### BMP #### [facility] [address] [place] [address] Dr. Ibis JimenezPPXNegativeNormalNEGATIVEGood Samaritan HospitalComment on above: Performed By: #### BMP #### [facility] [address] [address] [address] Ibis JimenezTCAPositiveAbnormalNEGATIVEGood Samaritan HospitalComselect specialty hospital-[facility] on above: Performed By: #### BMP #### [facility] [address] [place] [address] Dr. Ibis JimenezTHCPositiveAbnormalNEGATIVEGood Samaritan HospitalComment on above: Performed By: #### BMP #### [facility] [address] [address] [address] Ibis Drake URINE PROFILEon [id number] Ql (U)NegativeNormal NEGATIVEGood Samaritan HospitalComment on above:Performed By: #### ACET, SALYC #### [facility] [address] [place] [address] Dr. Ibis JimenezClarity (U)CLEARNormalCLEARGood Samaritan HospitalComment on above: Performed By: #### ACET, SALYC #### [facility] [address] [place] [address] Dr. Ibis JimenezColor (U)YELLOWNormalYELLOWGood Samaritan HospitalComment on above: Performed By: #### ACET, SALYC #### [facility] [address] [place] [address] Dr. Ibis Chang micrscopic examination will be performed if indicated. NormalThe [facility] HamiltonComment on above:Performed By: #### ACET, SALYC #### [facility] [address] [place] [address] Dr. Ibis JimenezGlucose Ql (U)NegativeNormalNEGATIVEGood Samaritan HospitalComment on above:Performed By: #### ACET, SALYC #### [facility] [address] [place] [address] Dr. Ibis JimenezHemoglobin Ql (U)NegativeNormalNEGATIVEElyria Memorial Hospital on above:Performed By: #### ACET, SALYC #### [facility] [address] [place] [address] Dr. Ibis JimenezKetones Ql (U)NegativeNormalNEGATIVEGood Samaritan HospitalComment on above:Performed By: #### ACET, SALYC #### [facility] [address] [place] [address] Dr. Ibis JimenezLEUKOCYTESNegativeNormalNEGATIVEThe [facility] HamiltonComment on above:Performed By: #### ACET, SALYC #### [facility] [address] [place] [address] Dr. Ibis JimenezNitrite Ql (U)NegativeNormalNEGATIVEThe [facility] HamiltonComment on above:Performed By: #### ACET, SALYC #### [facility] [address] [place] [address] Dr. Ibis JimenezpH (U)5.0 [pH]Normal5-9The [facility] on above: Performed By: #### ACET, SALYC #### [facility] [address] [place] [address] Dr. Ibis JimenezSPEC GRAVITY>=1.814Vtdwgiqe3.005-<=1.025The [facility] Comment on above:Performed By: #### ACET, SALYC #### [facility] [address] [place] [address] Dr. Ibis Quintanilla PROTEINNegativeNormalNEGATIVE/ TRACEThe [facility] Comment on above:Performed By: #### ACET, SALYC #### [facility] [address] [place] [address] Dr. Ibis JimenezUR MICRO INDNOT INDICATEDNormalThe [facility] HamiltonComment on above:Performed By: #### ACET, SALYC #### [facility] [address] [place] [address] Dr. Ibis JimenezUrobilinogen Qn (U)0.2 {Dinorah'U}/dLNormal0.2 - 1.0The [facility] on above:Performed By: #### ACET, SALYC #### [facility] [address] [place] [address] Dr. Ibis JimenezPROF CHEM 8 (BAS METB)on [id number] gap [Moles/Vol]13.1 mmol/LNormalThe Alejandra HospitalComment on above:Performed By: #### MONO #### [facility] [address] [address] [address] Ibis JimenezCalcium [Mass/Vol]8.3 mg/dLCritically low8.5-10.1The [facility] HamiltonComment on above:Performed By: #### MONO #### [facility] [address] [address] [address] Ibis JimenezChloride [Moles/Vol]109 mmol/LCritically wffx18-046Mtq [facility] HamiltonComment on above:Performed By: #### MONO #### [facility] [address] [address] [address] Ibis JimenezCO2 [Moles/Vol]25.7 mmol/MCxpuxw73.0-32.0The [facility] Comment on above:Performed By: #### MONO #### [facility] [address] [place] [address] Dr. Ibis JimenezCreatinine [Mass/Vol]0.82 mg/dLNormal0.55-1.02The [facility] HamiltonComment on above:Performed By: #### MONO #### [facility] [address] [place] [address] Dr. Ibis RojasGFR-AF EGYPTIAN>60Normal>=60The [facility] HamiltonComment on above:Performed By: #### MONO #### [facility] [address] [address] [address] Ibis RojasGFR-NON AF EGYPTIAN>60Normal>=60The [facility] HamiltonComment on above:Performed By: #### MONO #### [facility] [address] [address] [address] Ibis JimenezGlucose [Mass/Vol]95 mg/qYJpcqzn49-162Yqq [facility] Comment on above:Performed By: #### MONO #### [facility] [address] [address] [address] Ibis JimenezPotassium [Moles/Vol]3.8 mmol/LNormal3.5-5.1The [facility] Comment on above:Performed By: #### MONO #### [facility] [address] [address] [address] Ibis JimenezSodium [Moles/Vol]144 mmol/EEiqhkx961-389Hmd [facility] Comment on above:Performed By: #### MONO #### [facility] [address] [address] [address] Ibis JimenezUrea nitrogen [Mass/Vol]16.0 mg/dLNormal7.0-18.0[facility] HospitalComment on above:Performed By: #### MONO #### [facility] [address] [place] [address] Dr. Ibis JimenezUrea nitrogen/Creatinine [Mass ratio]19.5 mg/mgNoalThe [facility] HamiltonComment on above:Performed By: #### MONO #### [facility] [address] [place] [address] Dr. Ibis JimenezACETAMINOPHENon 25-77-3215Tyopiprbfjxyk [Mass/Vol]ug/mLCritically low10.0-30.0[facility] HospitalComment on above:Performed By: #### ACET, SALYC #### [facility] [address] [place] [address] Dr. Ibis JimenezDRUG SCREEN RAPID (URINE)on [id number]B The [facility] HamiltonComment on above:Performed By: #### MONO #### [facility] [address] [place] [address] Dr. Ibis JimenezBARPositiveAbnormalNEGATIVEGood Samaritan HospitalComment on above: Performed By: #### MONO #### [facility] [address] [place] [address] Dr. Ibis JimenezBUPNegativeNormalNEGATIVEThe [facility] HamiltonComment on above: Performed By: #### MONO #### [facility] [address] [place] [address] Dr. Ibis JimenezBZOPositiveAbnormalNEGATIVEThe [facility] HamiltonComment on above: Performed By: #### MONO #### [facility] [address] [place] [address] Dr. Ibis DanielCNegativeNormalNEGATIVEGood Samaritan HospitalComment on above: Performed By: #### MONO #### [facility] [address] [place] [address] Dr. Ibis YanMagruder Memorial HospitalComment on above: Result Comment: AMP (Amphetamine): 500ng/mL, BAR (Barbituates): 200 ng/mL, BZO (Benzodiazepines): 150 ng/mL, BUP (Buprenorphine): 10 ng/mL, SEMAJ (Cocaine): 150 ng/mL, mAMP (Methamphetamine): 500 ng/mL, MTD (Methadone): 200 ng/mL, OPI (Opiates): 100 ng/mL, OXY (Oxycodone): 100 ng/mL, PCP (Phencyclidine): 25 ng/mL, PPX (Propoxyphene): 300 ng/mL, THC (Cannabinoids): 50 ng/mL, TCA (Trycyclic Antidepressants): 300 ng/mLPerformed By: #### MONO #### [facility] [address] [place] [address] Dr. Ibis JimenezDRUG CUT HEADERDRUG CLASS TEST SYSTEM CUT-OFF CONCENTRATIONS ARE FOLLOWS:NormalThe [facility] HamiltonComselect [facility] on above:Performed By: #### MONO #### [facility] [address] [place] [address] Dr. Ibis JimenezmAMPNegativeNormalNEGATIVEGood Samaritan HospitalComselect specialty hospital-[facility] on above: Performed By: #### MONO #### [facility] [address] [place] [address] Dr. Ibis JimenezMTDNegativeNormalNEGATIVEGood Samaritan HospitalComselect [facility] on above: Performed By: #### MONO #### [facility] [address] [place] [address] Dr. Ibis SenIPositiveAbnormalNEGATIVEGood Samaritan HospitalComselect [facility] on above: Performed By: #### MONO #### [facility] [address] [place] [address] Dr. Ibis JimenezOXYNegativeNormalNEGATIVEOhioHealth Grant Medical Centerment on above: Performed By: #### MONO #### [facility] [address] [place] [address] Dr. Ibis JimenezPCPNegativeNormalNEGATIVEGood Samaritan HospitalComselect [facility] on above: Performed By: #### MONO #### [facility] [address] [place] [address] Dr. Ibis JimenezPPXNegativeNormalNEGATIVEGood Samaritan HospitalComselect [facility] on above: Performed By: #### MONO #### [facility] [address] [place] [address] Dr. Ibis JimenezTCANegativeNormalNEGATIVEGood Samaritan HospitalComselect [facility] on above: Performed By: #### MONO #### [facility] [address] [place] [address] Dr. Ibis JimenzeTHCPositiveAbnormalNEGATIVEGrand [facility] on above: Performed By: #### MONO #### [facility] [address] [place] [address] Dr. Ibis Drake URINE PROFILEon [id number] Ql (U)NegativeNormal NEGATIVEGood Samaritan HospitalComselect specialty hospital-[facility] on above:Performed By: #### MONO #### [facility] [address] [place] [address] Dr. Ibis Sage (U)CLEARNormalCLEARGood Samaritan HospitalComselect specialty hospital-[facility] on above: Performed By: #### MONO #### [facility] [address] [place] [address] Dr. Ibis Rivera (U)YELLOWNormalYELLOWGood Samaritan HospitalComselect specialty hospital-[facility] on above: Performed By: #### MONO #### [facility] [address] [place] [address] Dr. Ibis Chang micrscopic examination will be performed if indicated. NormalGood Samaritan HospitalComselect specialty hospital-[facility] on above:Performed By: #### MONO #### [facility] [address] [place] [address] Dr. Ibis Kerrose Ql (U)NegativeNormalNEGATIVEGood Samaritan HospitalComselect specialty hospital-[facility] on above:Performed By: #### MONO #### [facility] [address] [place] [address] Dr. Ibis JimenezHemoglobin Ql (U)TRACE-INTACTAbnormalNEGATIVEGood Samaritan HospitalComment on above:Performed By: #### MONO #### [facility] [address] [place] [address] Dr. Ibis JimenezKetones Ql (U)NegativeNormalNEGATIVEKettering Health Troy HospitalComment on above:Performed By: #### MONO #### [facility] [address] [place] [address] Dr. Ibis JimenezLEUKOCYTESNegativeNormalNEGATIVEGood Samaritan HospitalComselect specialty hospital-[facility] on above:Performed By: #### MONO #### [facility] [address] [place] [address] Dr. Ibis JimenezNitrite Ql (U)NegativeNormalNEGATIVEGood Samaritan HospitalComment on above:Performed By: #### MONO #### [facility] [address] [place] [address] Dr. Ibis JimenezpH (U)6.0 [pH]Normal5-9[facility] HospitalComselect specialty hospital-[facility] on above: Performed By: #### MONO #### [facility] [address] [place] [address] Dr. Ibis JimenezProtein (U) [Mass/Vol]30 mg/dLAbnormalNEGATIVE/ TRACEThe [facility] HamiltonComment on above:Performed By: #### MONO #### [facility] [address] [place] [address] Dr. Ibis JimenezSPEC GRAVITY1.835Xiqxsw3.005-<=1.025The [facility] HamiltonComselect [facility] on above:Performed By: #### MONO #### [facility] [address] [place] [address] Dr. Ibis Curits MICRO INDINDICATEDNormalThe [facility] HamiltonComment on above: Performed By: #### MONO #### [facility] [address] [place] [address] Dr. Ibis JimenezUrobilinogen Qn (U)0.2 {Dinorah'U}/dLNormal0.2 - 1.0The [facility] HamiltonComment on above:Performed By: #### MONO #### [facility] [address] [place] [address] Dr. Ibis McdanielANOL (BLD ALC)on [id number] NOTENOTE: 80 mg/dl is the legal limit for a blood alcohol levelNoMcKitrick HospitalComment on above: Performed By: #### AMM #### [facility] [address] [place] [address] Dr. Ibis Mcdanielanol [Mass/Vol]mg/dLNoMcKitrick HospitalComment on above:Performed By: #### AMM #### [facility] [address] [place] [address] Dr. Ibis JimenezPOINT OF CARE GLUCOSEon [id number] [Mass/Vol]88 mg/dL Vawffb22-840Uul [facility] HamiltonComment on above:Performed By: #### CVDTBH #### [facility] [address] [place] [address] Dr. Ibis JimenezPREGNANCY URon [id number], QUALNegativeNormalNEGATIVEThe [facility] HamiltonComment on above:Performed By: #### MONO #### [facility] [address] [place] [address] Dr. Ibis JimenezPROF CHEM 8 (BAS METB)on [id number] gap [Moles/Vol]12.6 mmol/LNormalThe [facility] HamiltonComment on above:Performed By: #### AMM #### [facility] [address] [place] [address] Dr. Ibis JimenezCalcium [Mass/Vol]8.4 mg/dLCritically low8.5-10.1The [facility] HamiltonComment on above:Performed By: #### AMM #### [facility] [address] [place] [address] Dr. Ibis JimenezChloride [Moles/Vol]107 mmol/MGswnwx49-266Yeu [facility] Comment on above:Performed By: #### AMM #### [facility] [address] [address] [address] Ibis JimenezCO2 [Moles/Vol]22.5 mmol/FZqatol37.0-32.0The [facility] Comment on above:Performed By: #### AMM #### [facility] [address] [address] [address] Ibis JimenezCreatinine [Mass/Vol]0.82 mg/dLNormal0.55-1.02The [facility] HamiltonComment on above:Performed By: #### AMM #### [facility] [address] [address] [address] Ibis RojasGFR-AF EGYPTIAN>60Normal>=60The [facility] HamiltonComment on above:Performed By: #### AMM #### [facility] [address] [place] [address] Dr. Ibis RojasGFR-NON AF EGYPTIAN>60Normal>=60The [facility] HamiltonComment on above:Performed By: #### AMM #### [facility] [address] [address] [address] Ibis JimenezGlucose [Mass/Vol]87 mg/tMVifudq18-449WrzGood Samaritan Hospital Comment on above:Performed By: #### AMM #### [facility] [address] [address] [address] Ibis JimenezPotassium [Moles/Vol]4.1 mmol/LNormal3.5-5.1The [facility] Comment on above:Performed By: #### AMM #### [facility] [address] [address] [address] Ibis JimenezSodium [Moles/Vol]138 mmol/TBlgofv401-706Oww [facility] Comment on above:Performed By: #### AMM #### [facility] [address] [address] [address] Ibis JimenezUrea nitrogen [Mass/Vol]22.0 mg/dLCritically high7.0-18.0The [facility] HamiltonComment on above:Performed By: #### AMM #### [facility] [address] [address] [address] Ibis Lama nitrogen/Creatinine [Mass ratio]26.8 mg/mgNoMcKitrick HospitalComment on above:Performed By: #### AMM #### [facility] [address] [place] [address] Dr. Ibis JimenezSALICYLATEon 41-30-0786WODGVRNCRH<2.8Normal<=19.9The [facility] HamiltonComment on above:Performed By: #### ACET, SALYC #### [facility] [address] [place] [address] Dr. Ibis Morris MICROSCOPIC ONLYon 63-28-2553MACXTMELOBPO SEENNormalNONE SEENGood Samaritan HospitalComselect specialty hospital-[facility] on above:Performed By: #### MONO #### [facility] [address] [place] [address] Dr. Ibis JimenezBactanthony identified Cx Nom (U)NOT INDICATEDNoMcKitrick HospitalComment on above:Performed By: #### MONO #### [facility] [address] [place] [address] Dr. Ibis JimenezCASTSEENAbnormalNONE SEENGrand [facility] on above: Performed By: #### MONO #### [facility] [address] [place] [address] Dr. Ibis JimenezCrystals LM Nom (Urine sed)NONE SEENNormalNONE SEENGood Samaritan HospitalComselect specialty hospital-[facility] on above:Performed By: #### MONO #### [facility] [address] [place] [address] Dr. Baumann ChangEpithelial cells LM Ql (Urine sed)MODERATEAbnormalNONE SEEN /RARE The [facility] HamiltonComselect [facility] on above:Performed By: #### MONO #### [facility] [address] [place] [address] Dr. Ibis GargALINE CASTFEWPremier Health Upper Valley Medical CenterComment on above: Performed By: #### MONO #### [facility] [address] [place] [address] Dr. Ibis McculloughUSRM SEENNormalNONE SEENGood Samaritan HospitalComment on above:Performed By: #### MONO #### [facility] [address] [place] [address] Dr. Ibis JimenezPkccuUFL4-1Zybgifoh3-0Ujw [facility] HamiltonComment on above:Performed By: #### MONO #### [facility] [address] [place] [address] Dr. Ibis JimenezWBCRM SEENNormalNONE SEENGood Samaritan HospitalComment on above: Performed By: #### MONO #### [facility] [address] [place] [address] Dr. Ibis Alexis AUTO DIFFon [id number] #0.0 103/ulNormal0.0-0.1The [facility] HamiltonComment on above:Performed By: #### CVDTBH #### [facility] [address] [place] [address] Dr. Ibis JimenezBasophils/100 WBC (Bld)0.3 %Normal0.2-2.0The [facility] on above:Performed By: #### CVDTBH #### [facility] [address] [place] [address] Dr. Ibis Acevedo #0.0 103/ulNormal0.0-0.7The [facility] HamiltonComment on above: Performed By: #### CVDTBH #### [facility] [address] [place] [address] Dr. Ibis Rojasosinophils/100 WBC (Bld)0.1 %Critically low0.9-7.0The [facility] HamiltonComment on above:Performed By: #### CVDTBH #### [facility] [address] [place] [address] Dr. Ibis Rojasrythrocyte distribution width (RBC) [Ratio]13.2 %Lrolya64.0-15.0 The [facility] HamiltonComment on above:Performed By: #### CVDTBH #### [facility] [address] [place] [address] Dr. Ibis JimenezHematocrit (Bld) [Volume fraction]38.5 %Gyebay15.0-48.0The [facility] HamiltonComment on above:Performed By: #### CVDTBH #### [facility] [address] [place] [address] Dr. Ibis JimenezHemoglobin (Bld) [Mass/Vol]12.4 g/bWIrnhun11.0-16.0The [facility] HamiltonComment on above:Performed By: #### CVDTBH #### [facility] [address] [place] [address] Dr. Ibis Soto #0.20 10e3/ulCritically high0.00-0.03The [facility] Comment on above:Performed By: #### CVDTBH #### [facility] [address] [place] [address] Dr. Ibis Soto %1.8 %Critically high0.0-0.5The [facility] HamiltonComment on above:Performed By: #### CVDTBH #### [facility] [address] [place] [address] Dr. Ibis Monsalve #0.5 103/ulCritically low1.2-3.8The [facility] Comment on above:Performed By: #### CVDTBH #### [facility] [address] [place] [address] Dr. Ibis Vuongmphocytes/100 WBC (Bld)4.6 %Critically low20.5-60.0Good Samaritan HospitalComment on above:Performed By: #### CVDTBH #### [facility] [address] [place] [address] Dr. Ibis JimenezMANUAL DIFF REQNONormalThe [facility] HamiltonComment on above: Performed By: #### CVDTBH #### [facility] [address] [place] [address] Dr. Ibis Irby (RBC) [Entitic mass]28.2 zqRmuazn50.7-34.0The [facility] HamiltonComment on above:Performed By: #### CVDTBH #### [facility] [address] [place] [address] Dr. Ibis FrankHC (RBC) [Mass/Vol]32.2 g/gVTcxsub81.9-35.2The [facility] HamiltonComment on above:Performed By: #### CVDTBH #### [facility] [address] [place] [address] Dr. Ibis Frank (RBC) [Entitic vol]87.5 pGOlrhie85.0-99.0The Crescent HospitalComment on above:Performed By: #### CVDTBH #### [facility] [address] [place] [address] Dr. Ibis Magallanes #0.1 103/ulCritically low0.3-0.8The [facility] HamiltonComment on above:Performed By: #### CVDTBH #### [facility] [address] [place] [address] Dr. Ibis Barbaocytes/100 WBC (Bld)1.3 %Critically low1.7-12.0The [facility] HamiltonComment on above:Performed By: #### CVDTBH #### [facility] [address] [place] [address] Dr. Ibis Schultz #10.1 103/ulCritically high1.4-6.5The [facility] Comment on above:Performed By: #### CVDTBH #### [facility] [address] [place] [address] Dr. Ibis Hiutrophils/100 WBC (Bld)91.9 %Critically high43.0-75.0The [facility] HamiltonComment on above:Performed By: #### CVDTBH #### [facility] [address] [place] [address] Dr. Ibis Olsenlet mean volume (Bld) [Entitic vol]9.1 fLCritically low 9.5-13.5The [facility] HamiltonComment on above:Performed By: #### CVDTBH #### [facility] [address] [place] [address] Dr. Ibis EricksonT240 103/kkJhalwy448-253Gop [facility] HamiltonComment on above: Performed By: #### CVDTBH #### [facility] [address] [place] [address] Dr. Ibis JimenezRBC4.40 106/ulNormal4.20-5.40The [facility] HamiltonComment on above:Performed By: #### CVDTBH #### [facility] [address] [place] [address] Dr. Ibis JimenezWBC11.0 103/ulNormal4.0-11.0The [facility] HamiltonComment on above:Performed By: #### CVDTBH #### [facility] [address] [place] [address] Dr. Ibis Charles 14(COMP METB)on [id number] [Mass/Vol]3.3 g/dL Critically low3.4-5.0The [facility] HamiltonComment on above:Performed By: #### BMP #### [facility] [address] [place] [address] Dr. Ibis JimenezAlbumin/Globulin [Mass ratio]0.9 {ratio}NormalThe [facility] HamiltonComment on above:Performed By: #### BMP #### [facility] [address] [place] [address] Dr. Ibis Ramos [Catalytic activity/Vol]63 U/OZvngjp69-003Hnv [facility] HamiltonComment on above:Performed By: #### BMP #### [facility] [address] [place] [address] Dr. Ibis Underwood [Catalytic activity/Vol]32 U/HLhlxof16-35Wes [facility] HamiltonComment on above:Performed By: #### BMP #### [facility] [address] [place] [address] Dr. Ibis Bal gap [Moles/Vol]12.9 mmol/LNormalThe [facility] on above:Performed By: #### BMP #### [facility] [address] [place] [address] Dr. Ibis Paris [Catalytic activity/Vol]14 U/LCritically owr24-09Ljf [facility] HamiltonComment on above:Performed By: #### BMP #### [facility] [address] [place] [address] Dr. Ibis JimenezBilirubin [Mass/Vol]0.2 mg/dLNormal0.2-1.0[facility] Comment on above:Performed By: #### BMP #### [facility] [address] [place] [address] Dr. Ibis JimenezCalcium [Mass/Vol]8.5 mg/dLNormal8.5-10.1The [facility] Comment on above:Performed By: #### BMP #### [facility] [address] [place] [address] Dr. Ibis JimenezChloride [Moles/Vol]106 mmol/DNvivfu76-823BwuGood Samaritan Hospital Comment on above:Performed By: #### BMP #### [facility] [address] [place] [address] Dr. Ibis JimenezCO2 [Moles/Vol]26.6 mmol/JHepkzy24.0-32.0The [facility] Comment on above:Performed By: #### BMP #### [facility] [address] [place] [address] Dr. Ibis JimenezCreatinine [Mass/Vol]0.89 mg/dLNormal0.55-1.02The [facility] HamiltonComment on above:Performed By: #### BMP #### [facility] [address] [place] [address] Dr. Ibis RojasGFR-AF EGYPTIAN>60Normal>=60The [facility] HamiltonComment on above:Performed By: #### BMP #### [facility] [address] [place] [address] Dr. Ibis RojasGFR-NON AF EGYPTIAN>60Normal>=60The [facility] HamiltonComment on above:Performed By: #### BMP #### [facility] [address] [place] [address] Dr. Ibis JimenezGlobulin (S) [Mass/Vol]3.6 g/dLNormalThe Crescent HospitalComment on above:Performed By: #### BMP #### [facility] [address] [address] [address] Ibis JimenezGlucose [Mass/Vol]134 mg/dLCritically fftb01-786WyzGood Samaritan HospitalComment on above:Performed By: #### BMP #### [facility] [address] [address] [address] Ibis JimenezPotassium [Moles/Vol]4.5 mmol/LNormal3.5-5.1[facility] Comment on above:Performed By: #### BMP #### [facility] [address] [address] [address] Ibis JimenezProtein [Mass/Vol]6.9 g/dLNormal6.4-8.2[facility] Comment on above:Performed By: #### BMP #### [facility] [address] [address] [address] Ibis JimenezSodium [Moles/Vol]141 mmol/CBxigfg089-613EfhGood Samaritan Hospital Comment on above:Performed By: #### BMP #### [facility] [address] [address] [address] Ibis JimenezUrea nitrogen [Mass/Vol]15.0 mg/dLNormal7.0-18.0[facility]itan HospitalComment on above:Performed By: #### BMP #### [facility] [address] [address] [address] Ibis JimenezUrea nitrogen/Creatinine [Mass ratio]16.9 mg/mgNormalThAdena Health SystemComment on above:Performed By: #### BMP #### [facility] [address] [address] [address] Ibis JimenezCT HEAD WO CONon [id number] HEAD WO CONEXAMINATION: CT HEAD WO CON, 05/23/2022 6:45 PM [...] Electronically authenticated by: NICHOLAS MARCUS Date: 2022-05-23 19:25NoMcKitrick HospitalCT LSPINE WO CONon [id number] LSPINE WO CONCT CERVICAL SPINE WITHOUT CONTRAST. CT LUMBAR SPINE [...] with vacuum phenomenon. Electronically authenticated by: [facility] Date: 2022-05-23 19:41NoMcKitrick HospitalCT HEAD WO CONon [id number] HEAD WO CONStudy: CT HEAD WO CON HISTORY: HEADACHE Technique: CT images of the head were acquired without intravenous contrast. Dose reduction technique used: Automatic exposure control and/or adjustment of the mA and/or kV according to patient size and/or use of degenerative reconstruction technique. Comparisons: CT head 10/19/2021 and 04/07/2021. Findings: BRAIN PARENCHYMA: No acute hemorrhage. No mass effect or herniation. Grant-white differentiation is maintained. White matter is within [...] Electronically authenticated by: ROBIN IRBY Date: 2022-03-31 22:40NormKeenan Private HospitalCovid-19 PCR (CVDTBH)on [id number]-CoV-2 (COVID-19) RNA SAURABH+probe Ql (Unsp spec)Not detectedNormalNOT DETECTEDThe [facility] Comment on above:Result Comment: When diagnostic testing is negative, the [...] for this test is supported by the Staffing Account Manager of Health and Human Service's declaration [...] which the test may no longer be used).Performed By: #### CVDTBH #### [facility] [address] [place] [address] [id number] [address] Ibis Drake URINE PROFILEon [id number] Ql (U)NegativeNormal NEGATIVEThe [facility] HamiltonComment on above:Performed By: #### ACET, SALYC #### [facility] [address] [place] [address] Dr. Ibis Pratherarity (U)CLEARNormalCLEARGood Samaritan HospitalComment on above: Performed By: #### ACET, SALYC #### [facility] [address] [place] [address] Dr. Ibis Rivera (U)YELLOWNormalYELLOWGood Samaritan HospitalComment on above: Performed By: #### ACET, SALYC #### [facility] [address] [address] [address] Ibis Chang micrscopic examination will be performed if indicated. NormalThe [facility] HamiltonComment on above:Performed By: #### ACET, SALYC #### [facility] [address] [place] [address] Dr. Ibis JimenezGlucose Ql (U)NegativeNormalNEGATIVEGood Samaritan HospitalComment on above:Performed By: #### ACET, SALYC #### [facility] [address] [place] [address] Dr. Ibis JimenezHemoglobin Ql (U)SMALLAbnormalNEGATIVEElyria Memorial Hospital on above:Performed By: #### ACET, SALYC #### [facility] [address] [place] [address] Dr. Ibis JimenezKetones Ql (U)NegativeNormalNEGATIVEGood Samaritan HospitalComment on above:Performed By: #### ACET, SALYC #### [facility] [address] [place] [address] Dr. Ibis JimenezLEUKOCYTESNegativeNormalNEGATIVEGood Samaritan HospitalComselect specialty hospital-[facility] on above:Performed By: #### ACET, SALYC #### [facility] [address] [place] [address] Dr. Ibis JimenezNitrite Ql (U)NegativeNormalNEGATIVEGood Samaritan HospitalComment on above:Performed By: #### ACET, SALYC #### [facility] [address] [place] [address] Dr. Ibis JimenezpH (U)5.5 [pH]Normal5-9The Crescent HospitalComment on above: Performed By: #### ACET, SALYC #### [facility] [address] [place] [address] Dr. Ibis JimenezSPEC GRAVITY>=1.767Gujjozgn9.005-<=1.025The [facility] Comment on above:Performed By: #### ACET, SALYC #### [facility] [address] [place] [address] Dr. Ibis Quintanilla PROTEINNegativeNormalNEGATIVE/ TRACEThe [facility] Comment on above:Performed By: #### ACET, SALYC #### [facility] [address] [place] [address] Dr. Ibis Curtis MICRO INDINDICATEDPremier Health Upper Valley Medical CenterComment on above: Performed By: #### ACET, SALYC #### [facility] [address] [place] [address] Dr. Ibis Lorenzbilinogen Qn (U)0.2 {Dinorah'U}/dLNormal0.2 - 1.0Good Samaritan HospitalComment on above:Performed By: #### ACET, SALYC #### [facility] [address] [place] [address] Dr. Ibis Garcia AND B AGon [id number] Valley Surgical Hospital on above:Result Comment: Negative for Flu A protein angiten. Infection due to Flu A cannot be ruled out. FluA angiten in the sample may be below the detection limit of the test.Performed By: #### AMM #### [facility] [address] [place] [address] Dr. Ibis RuizUBNEGHSEE Georgetown Behavioral HospitalComselect specialty hospital-[facility] on above: Result Comment: Negative for Flu B protein antigen. Infection due to Flu B cannot be ruled out. FluB antigen in the sample may be below the detection limit of the test.Performed By: #### AMM #### [facility] [address] [place] [address] Dr. Ibis Garcia AGNegativeNormalNEGATIVE SEE COMMENTThe Alejandra HospitalComment on above:Performed By: #### AMM #### [facility] [address] [address] [address] Ibis Lagos AGNegativeNormalNEGATIVE SEE COMMENTThe [facility] HamiltonComselect specialty hospital-[facility] on above:Performed By: #### AMM #### [facility] [address] [address] [address] Ibis JimenezLACTATE/LACTIC ACIDon [id number] [Moles/Vol]1.9 mmol/L Normal0.4-1.9The [facility]red Hospital Daytonment on above:Performed By: #### LACT #### [facility] [address] [place] [address] Dr. Ibis Morris MICROSCOPIC ONLYon [id number]E SEEN The [facility] HamiltonComselect specialty hospital-[facility] on above:Performed By: #### ACET, SALYC #### [facility] [address] [place] [address] Dr. Ibis Pettit identified Cx Nom (U)NOT INDICATEDNoMcKitrick HospitalComselect specialty hospital-[facility] on above:Performed By: #### ACET, SALYC #### [facility] [address] [place] [address] Dr. Ibis Baron SEENNormalNONE SEENGrand Lake Joint Township District [facility] on above:Performed By: #### ACET, SALYC #### [facility] [address] [place] [address] Dr. Ibis Oviedo LM Nom (Urine sed)NONE SEENNormalNONE SEENGrand Lake Joint Township District Memorial Hospital on above:Performed By: #### ACET, SALYC #### [facility] [address] [place] [address] Dr. Ibis Davisthelial cells LM Ql (Urine sed)RARENormalNONE SEEN /RAREThe [facility] on above:Performed By: #### ACET, SALYC #### [facility] [address] [place] [address] Dr. Ibis GallegosCOUSTRACEAbnormalNONE SEENThe Crescent HospitalComment on above:Performed By: #### ACET, SALYC #### [facility] [address] [place] [address] Dr. Ibis BurrCzfwaJMC7-1Wtwtsx9-9Tcp Kindred Hospital Daytonment on above:Performed By: #### ACET, SALYC #### [facility] [address] [place] [address] Dr. Ibis JimenezWBCNONE SEENNormalNONE SEENThe [facility] HamiltonComment on above: Performed By: #### ACET, SALYC #### [facility] [address] [place] [address] Dr. Ibis JimenezAMMONIAon [id number] (P) [Moles/Vol]31 umol/FUpsedc51-68 The [facility] on above:Performed By: #### AMM #### [facility] [address] [place] [address] Dr. Ibis Alexis AUTO DIFFon [id number] #0.0 103/ulNormal0.0-0.1The [facility] HamiltonComment on above:Performed By: #### AMM #### [facility] [address] [place] [address] Dr. Ibis JimenezBasophils/100 WBC (Bld)0.4 %Normal0.2-2.0[facility] Comment on above:Performed By: #### AMM #### [facility] [address] [place] [address] Dr. Ibis Acevedo #0.5 103/ulNormal0.0-0.7The [facility] on above: Performed By: #### AMM #### [facility] [address] [place] [address] Dr. Ibis Rojasosinophils/100 WBC (Bld)6.4 %Normal0.9-7.0The [facility] Comment on above:Performed By: #### AMM #### [facility] [address] [place] [address] Dr. Ibis Rojasrythrocyte distribution width (RBC) [Ratio]12.8 %Gyvdab03.0-15.0 The [facility] HamiltonComment on above:Performed By: #### AMM #### [facility] [address] [place] [address] Dr. Ibis JimenezHematocrit (Bld) [Volume fraction]36.6 %Lnucus02.0-48.0The [facility] HamiltonComment on above:Performed By: #### AMM #### [facility] [address] [place] [address] Dr. Ibis JimenezHemoglobin (Bld) [Mass/Vol]12.5 g/eZQlytno40.0-16.0The [facility] HamiltonComment on above:Performed By: #### AMM #### [facility] [address] [place] [address] Dr. Ibis Soto #0.02 10e3/ulNormal0.00-0.03The [facility] HamiltonComment on above:Performed By: #### AMM #### [facility] [address] [place] [address] Dr. Ibis Soto %0.3 %Normal0.0-0.5The [facility] HamiltonComment on above: Performed By: #### AMM #### [facility] [address] [place] [address] Dr. Ibis Monsalve #2.0 103/ulNormal1.2-3.8The [facility] HamiltonComment on above:Performed By: #### AMM #### [facility] [address] [place] [address] Dr. Ibis Brennerhocytes/100 WBC (Bld)25.0 %Hykxfw11.5-60.0The [facility] HamiltonComment on above:Performed By: #### AMM #### [facility] [address] [place] [address] Dr. Ibis NewtonUAL DIFF REQNONormalThe [facility] HamiltonComment on above: Performed By: #### AMM #### [facility] [address] [place] [address] Dr. Ibis Irby (RBC) [Entitic mass]29.5 vbSsgdtv55.7-34.0The [facility] HamiltonComment on above:Performed By: #### AMM #### [facility] [address] [place] [address] Dr. Ibis Frank (RBC) [Mass/Vol]34.2 g/hLVfevmv13.9-35.2The [facility] HamiltonComment on above:Performed By: #### AMM #### [facility] [address] [place] [address] Dr. Ibis FrankV (RBC) [Entitic vol]86.3 yNOxlxfb10.0-99.0The [facility] HamiltonComment on above:Performed By: #### AMM #### [facility] [address] [place] [address] Dr. Ibis Magallanes #0.4 103/ulNormal0.3-0.8The [facility] HamiltonComment on above:Performed By: #### AMM #### [facility] [address] [place] [address] Dr. Ibis Barbaocytes/100 WBC (Bld)5.6 %Normal1.7-12.0The [facility] Comment on above:Performed By: #### AMM #### [facility] [address] [place] [address] Dr. Ibis Schultz #4.9 103/ulNormal1.4-6.5The [facility] HamiltonComment on above:Performed By: #### AMM #### [facility] [address] [place] [address] Dr. Ibis Hiutrophils/100 WBC (Bld)62.3 %Rffbmv38.0-75.0The [facility] HamiltonComment on above:Performed By: #### AMM #### [facility] [address] [place] [address] Dr. Ibis Olsenlet mean volume (Bld) [Entitic vol]9.5 fLNormal9.5-13.5The Cres[facility] HospitalComment on above:Performed By: #### AMM #### [facility] [address] [place] [address] Dr. Ibis JimenezPLT246 103/jvMtpocv419-632Sba [facility] HamiltonComment on above: Performed By: #### AMM #### [facility] [address] [place] [address] Dr. Ibis JimenezRBC4.24 106/ulNormal4.20-5.40The [facility] HamiltonComment on above:Performed By: #### AMM #### [facility] [address] [place] [address] Dr. Ibis JimenezWBC7.8 103/ulNormal4.0-11.0The [facility] HamiltonComment on above: Performed By: #### AMM #### [facility] [address] [place] [address] Dr. Ibis Barrios BLOODon 97-28-5860Ychdvpagyue examination of blood, cultureCulture Observations: NO GROWTH AT 5 DAYS.NormalThe [facility] HamiltonComment on above:Performed By: #### BLDCX2 #### [facility] [address] [place] [address] Dr. Ibis JimenezMicroscopic examination of blood, cultureCulture Observations: NO GROWTH AT 5 DAYS.NormalThe [facility] HamiltonComment on above:Performed By: #### BMP #### [facility] [address] [place] [address] Dr. Ibis JimenezLACTATE/LACTIC ACIDon [id number] [Moles/Vol]2.8 mmol/L Critically high0.4-1.9The [facility] HamiltonComment on above:Performed By: #### CVDTBH #### [facility] [address] [place] [address] Dr. Ibis Charles 14(COMP METB)on 39-42-0230Gesusqk [Mass/Vol]3.4 g/dLNormal 3.4-5.0The [facility] HamiltonComment on above:Performed By: #### BMP #### [facility] [address] [place] [address] Dr. Ibis JimenezAlbumin/Globulin [Mass ratio]1.2 {ratio}NormalThe [facility] HamiltonComment on above:Performed By: #### BMP #### [facility] [address] [place] [address] Dr. Ibis EspinozaP [Catalytic activity/Vol]85 U/BXsgvdb20-804Goe [facility] HamiltonComment on above:Performed By: #### BMP #### [facility] [address] [place] [address] Dr. Ibis EspinozaT [Catalytic activity/Vol]18 U/XBwztzv03-27Wca [facility] HamiltonComment on above:Performed By: #### BMP #### [facility] [address] [place] [address] Dr. Ibis Santoson gap [Moles/Vol]13.2 mmol/LNormalThe [facility] Comment on above:Performed By: #### BMP #### [facility] [address] [place] [address] Dr. Ibis JimenezAST [Catalytic activity/Vol]11 U/LCritically zng11-85Zms [facility] HamiltonComment on above:Performed By: #### BMP #### [facility] [address] [place] [address] Dr. Ibis JimenezBilirubin [Mass/Vol]0.2 mg/dLNormal0.2-1.0The [facility] Comment on above:Performed By: #### BMP #### [facility] [address] [place] [address] Dr. Ibis JimenezCalcium [Mass/Vol]8.6 mg/dLNormal8.5-10.1The [facility] Comment on above:Performed By: #### BMP #### [facility] [address] [place] [address] Dr. Ibis JimenezChloride [Moles/Vol]105 mmol/QHnrnwp03-208Uwt [facility] Comment on above:Performed By: #### BMP #### [facility] [address] [place] [address] Dr. Ibis JimenezCO2 [Moles/Vol]25.1 mmol/HHiaqhc76.0-32.0The [facility] Comment on above:Performed By: #### BMP #### [facility] [address] [place] [address] Dr. Ibis JimenezCreatinine [Mass/Vol]0.80 mg/dLNormal0.55-1.02The [facility] HamiltonComment on above:Performed By: #### BMP #### [facility] [address] [address] [address] Ibis RojasGFR-AF EGYPTIAN>60Normal>=60The [facility] HamiltonComment on above:Performed By: #### BMP #### [facility] [address] [place] [address] Dr. Ibis RojasGFR-NON AF EGYPTIAN>60Normal>=60The [facility] HamiltonComment on above:Performed By: #### BMP #### [facility] [address] [place] [address] Dr. Ibis JimenezGlobulin (S) [Mass/Vol]2.9 g/dLNormalThe [facility] HamiltonComment on above:Performed By: #### BMP #### [facility] [address] [place] [address] Dr. Ibis JimenezGlucose [Mass/Vol]99 mg/aLYuihwg90-598AalGood Samaritan Hospital Comment on above:Performed By: #### BMP #### [facility] [address] [place] [address] Dr. Ibis JimenezPotassium [Moles/Vol]3.3 mmol/LCritically low3.5-5.1The [facility] HamiltonComment on above:Performed By: #### BMP #### [facility] [address] [place] [address] Dr. Ibis JimenezProtein [Mass/Vol]6.3 g/dLCritically low6.4-8.2The [facility] HamiltonComment on above:Performed By: #### BMP #### [facility] [address] [place] [address] Dr. Ibis JimenezSodium [Moles/Vol]140 mmol/FZhbuid468-446ExoGood Samaritan Hospital Comment on above:Performed By: #### BMP #### [facility] [address] [place] [address] Dr. Ibis Lama nitrogen [Mass/Vol]10.0 mg/dLNormal7.0-18.0Good Samaritan HospitalComment on above:Performed By: #### BMP #### [facility] [address] [place] [address] Dr. Ibis Lama nitrogen/Creatinine [Mass ratio]12.5 mg/mgNormalThe [facility] HamiltonComment on above:Performed By: #### BMP #### [facility] [address] [place] [address] Dr. Ibis Alexis AUTO DIFFon [id number] #0.0 103/ulNormal0.0-0.1The [facility] HamiltonComment on above:Performed By: #### AMM #### [facility] [address] [place] [address] Dr. Ibis JimenezBasophils/100 WBC (Bld)0.3 %Normal0.2-2.0[facility] Comment on above:Performed By: #### AMM #### [facility] [address] [place] [address] Dr. Ibis Acevedo #0.2 103/ulNormal0.0-0.7The [facility] HamiltonComment on above: Performed By: #### AMM #### [facility] [address] [place] [address] Dr. Ibis Rojasosinophils/100 WBC (Bld)2.7 %Normal0.9-7.0The [facility] Comment on above:Performed By: #### AMM #### [facility] [address] [place] [address] Dr. Ibis Rojasrythrocyte distribution width (RBC) [Ratio]13.2 %Yzghrk40.0-15.0 [facility] HospitalComment on above:Performed By: #### AMM #### [facility] [address] [place] [address] Dr. Ibis JimenezHematocrit (Bld) [Volume fraction]35.7 %Critically low36.0-48.0 The [facility] HamiltonComment on above:Performed By: #### AMM #### [facility] [address] [address] [address] Ibis JimenezHemoglobin (Bld) [Mass/Vol]12.2 g/uNHnkjeq25.0-16.0The [facility] HamiltonComment on above:Performed By: #### AMM #### [facility] [address] [address] [address] Ibis JimenezIG #0.04 10e3/ulCritically high0.00-0.03The [facility] Comment on above:Performed By: #### AMM #### [facility] [address] [place] [address] Dr. Ibis Soto %0.5 %Normal0.0-0.5The [facility] HamiltonComment on above: Performed By: #### AMM #### [facility] [address] [place] [address] Dr. Ibis Monsalve #2.1 103/ulNormal1.2-3.8The [facility] HamiltonComment on above:Performed By: #### AMM #### [facility] [address] [place] [address] Dr. Ibis Vuongmphocytes/100 WBC (Bld)27.3 %Qprzyp91.5-60.0The [facility] HamiltonComment on above:Performed By: #### AMM #### [facility] [address] [address] [address] Ibis JimenezMANUAL DIFF REQNONormalThe [facility] HamiltonComment on above: Performed By: #### AMM #### [facility] [address] [address] [address] Ibis Irby (RBC) [Entitic mass]29.0 yrGopvlk39.7-34.0The [facility] HamiltonComment on above:Performed By: #### AMM #### [facility] [address] [address] [address] Ibis FrankHC (RBC) [Mass/Vol]34.2 g/gOVimsdx01.9-35.2The [facility] HamiltonComment on above:Performed By: #### AMM #### [facility] [address] [place] [address] Dr. Ibis FrankV (RBC) [Entitic vol]84.8 cLDpdhae78.0-99.0The [facility] HamiltonComment on above:Performed By: #### AMM #### [facility] [address] [place] [address] Dr. Ibis Magallanes #0.7 103/ulNormal0.3-0.8The [facility] HamiltonComment on above:Performed By: #### AMM #### [facility] [address] [place] [address] Dr. Ibis Barbaocytes/100 WBC (Bld)8.7 %Normal1.7-12.0The [facility] Comment on above:Performed By: #### AMM #### [facility] [address] [place] [address] Dr. Ibis Schultz #4.7 103/ulNormal1.4-6.5The [facility] HamiltonComment on above:Performed By: #### AMM #### [facility] [address] [place] [address] Dr. Ibis Hiutrophils/100 WBC (Bld)60.5 %Kcbvxe66.0-75.0The [facility] HamiltonComment on above:Performed By: #### AMM #### [facility] [address] [place] [address] Dr. Ibis Olsenlet mean volume (Bld) [Entitic vol]9.6 fLNormal9.5-13.5The [facility] HamiltonComment on above:Performed By: #### AMM #### [facility] [address] [place] [address] Dr. Ibis JimenezPLT212 103/ohYcgeyb919-331Gif Alejandra HospitalComment on above: Performed By: #### AMM #### [facility] [address] [place], [place] [address] Dr. Ibis JimenezRBC4.21 106/ulNormal4.20-5.40The [facility] on above:Performed By: #### AMM #### [facility] [address] [place], [place] [address] Dr. Ibis JimenezWBC7.7 103/ulNormal4.0-11.0The [facility] on above: Performed By: #### AMM #### [facility] [address] [address] [address] Ibis JimenezCT ABD/PELV W CONon [id number] ABD/PELV W CONEXAM: CT ABD/PELV W CON REASON FOR EXAM: [...] Electronically authenticated by: TONY DAHL Date: 2022-01-14 20:01[facility] URINE PROFILEon [id number] Ql (U)NegativeNormal NEGATIVEGood Samaritan HospitalComment on above:Performed By: #### ACET, SALYC #### [facility] [address] [place] [address] Dr. Ibis JimenzeClarity (U)CLEARNormalCLEARGood Samaritan HospitalComment on above: Performed By: #### ACET, SALYC #### [facility] [address] [place] [address] Dr. Ibis JimenezColor (U)LT. YELLOWNormalYELLOWGood Samaritan HospitalComment on above:Performed By: #### ACET, SALYC #### [facility] [address] [address] [address] Ibis Chang micrscopic examination will be performed if indicated. NormalGood Samaritan HospitalComment on above:Performed By: #### ACET, SALYC #### [facility] [address] [address] [address] Ibis JimenezGlucose Ql (U)NegativeNormalNEGATIVEGood Samaritan HospitalComment on above:Performed By: #### ACET, SALYC #### [facility] [address] [address] [address] Ibis JimenezHemoglobin Ql (U)NegativeNormalNEGATIVEGood [facility]aritan [facility] Comment on above:Performed By: #### ACET, SALYC #### [facility] [address] [address] [address] Ibis JimenezKetones Ql (U)NegativeNormalNEGATIVEGood Samaritan HospitalComment on above:Performed By: #### ACET, SALYC #### [facility] [address] [address] [address] Ibis JimenezLEUKOCYTESTRACEAbnormalNEGATIVEGood Samaritan HospitalComment on above:Performed By: #### ACET, SALYC #### [facility] [address] [address] [address] Ibis Avalostraldo Ql (U)NegativeNormalNEGATIVEThe [facility] HamiltonComment on above:Performed By: #### ACET, SALYC #### [facility] [address] [address] [address] Ibis JimenezpH (U)5.5 [pH]Normal5-9The [facility] HamiltonComment on above: Performed By: #### ACET, SALYC #### [facility] [address] [address] [address] Ibis JimenezSPEC GRAVITY1.871Czynjb6.005-<=1.025The [facility] HamiltonComment on above:Performed By: #### ACET, SALYC #### [facility] [address] [place] [address] Dr. Ibis Quintanilla PROTEINNegativeNormalNEGATIVE/ TRACEThe [facility] Comment on above:Performed By: #### ACET, SALYC #### [facility] [address] [address] [address] Ibis Curtis MICRO INDINDICATEDNormalThe [facility] HamiltonComment on above: Performed By: #### ACET, SALYC #### [facility] [address] [address] [address] Ibis JimenezUrobilinogen Qn (U)0.2 {Dinorah'U}/dLNormal0.2 - 1.0The [facility] HamiltonComment on above:Performed By: #### ACET, SALYC #### [facility] [address] [place] [address] Dr. Ibis JimenezPREGNANCY URon 33-13-2011YDWWAUNDT, QUALNegativeNormalNEGATIVEThe [facility] HamiltonComment on above:Performed By: #### ACET, SALYC #### [facility] [address] [place] [address] Dr. Ibis JimenezPROF CHEM 8 (BAS METB)on 63-43-1250Fekko gap [Moles/Vol]9.9 mmol/LNormalThe [facility] HamiltonComment on above:Performed By: #### BMP #### [facility] [address] [address] [address] Ibis JimenezCalcium [Mass/Vol]8.6 mg/dLNormal8.5-10.1The [facility] Comment on above:Performed By: #### BMP #### [facility] [address] [address] [address] Ibis JimenezChloride [Moles/Vol]105 mmol/PYtribs03-532Oty [facility] Comment on above:Performed By: #### BMP #### [facility] [address] [address] [address] Ibis JimenezCO2 [Moles/Vol]27.5 mmol/IFslntt62.0-32.0The [facility] Comment on above:Performed By: #### BMP #### [facility] [address] [place] [address] Dr. Ibis JimenezCreatinine [Mass/Vol]0.70 mg/dLNormal0.55-1.02The [facility] HamiltonComment on above:Performed By: #### BMP #### [facility] [address] [place] [address] Dr. Ibis RojasGFR-AF EGYPTIAN>60Normal>=60The [facility] HamiltonComment on above:Performed By: #### BMP #### [facility] [address] [address] [address] Ibis RojasGFR-NON AF EGYPTIAN>60Normal>=60The [facility] HamiltonComment on above:Performed By: #### BMP #### [facility] [address] [address] [address] Ibis JimenezGlucose [Mass/Vol]83 mg/vMKlwduc44-196Put [facility] Comment on above:Performed By: #### BMP #### [facility] [address] [place] [address] Dr. Ibis JimenezPotassium [Moles/Vol]4.4 mmol/LNormal3.5-5.1[facility] Comment on above:Performed By: #### BMP #### [facility] [address] [address] [address] Ibis Guzmanum [Moles/Vol]138 mmol/SOzbuum238-126Ooo [facility] Comment on above:Performed By: #### BMP #### [facility] [address] [address] [address] Ibis JimenezUrea nitrogen [Mass/Vol]13.0 mg/dLNormal7.0-18.0The [facility] HamiltonComment on above:Performed By: #### BMP #### [facility] [address] [address] [address] Ibis Lama nitrogen/Creatinine [Mass ratio]18.6 mg/mgNoalThe [facility] HamiltonComment on above:Performed By: #### BMP #### [facility] [address] [place] [address] Dr. Ibis Morris MICROSCOPIC ONLYon [id number] SEENNormalNONE SEENGood Samaritan HospitalComment on above:Performed By: #### ACET, SALYC #### [facility] [address] [address] [address] Ibis Pettit identified Cx Nom (U)NOT INDICATEDNoMcKitrick HospitalComment on above:Performed By: #### ACET, SALYC #### [facility] [address] [place] [address] Dr. Ibis Baron SEENNormalNONE SEENGood Samaritan HospitalComselect specialty [facility] on above:Performed By: #### ACET, SALYC #### [facility] [address] [address] [address] Ibis Oviedo LM Nom (Urine sed)NONE SEENNormalNONE SEENGood Samaritan HospitalComselect specialty hospital-[facility] on above:Performed By: #### ACET, SALYC #### [facility] [address] [address] [address] Baumann ChangEpithelial cells LM Ql (Urine sed)FEWAbnormalNONE SEEN /RAREThe [facility] HamiltonComment on above:Performed By: #### ACET, SALYC #### [facility] [address] [address] [address] Ibis GallegosCOUSRM SEENNormalNONE SEENThe [facility] HamiltonComment on above:Performed By: #### ACET, SALYC #### [facility] [address] [address] [address] Ibis JimenezRBCNONE SEENAbnormal0-2The [facility] HamiltonComment on above: Performed By: #### ACET, SALYC #### [facility] [address] [address] [address] Ibis HamiltonBCRM SEENNormalNONE SEENThe [facility] HamiltonComment on above: Performed By: #### ACET, SALYC #### [facility] [address] [place] [address] Dr. Ibis Alexis AUTO DIFFon [id number] #0.0 103/ulNormal0.0-0.1The [facility] HamiltonComment on above:Performed By: #### ACET, SALYC #### [facility] [address] [place] [address] Dr. Ibis Souzasophils/100 WBC (Bld)0.2 %Normal0.2-2.0The [facility] Comment on above:Performed By: #### ACET, SALYC #### [facility] [address] [place] [address] Dr. Ibis Acevedo #0.0 103/ulNormal0.0-0.7The [facility] Daytonment on above: Performed By: #### ACET, SALYC #### [facility] [address] [place] [address] Dr. Ibis Rojasosinophils/100 WBC (Bld)0.4 %Critically low0.9-7.0The [facility] Daytonment on above:Performed By: #### ACET, SALYC #### [facility] [address] [place] [address] Dr. Ibis Rojasrythrocyte distribution width (RBC) [Ratio]13.2 %Nemohv47.0-15.0 The [facility] HamiltonComment on above:Performed By: #### ACET, SALYC #### [facility] [address] [place] [address] Dr. Ibis JimenezHematocrit (Bld) [Volume fraction]39.7 %Gxkqbp62.0-48.0The [facility] HamiltonComment on above:Performed By: #### ACET, SALYC #### [facility] [address] [place] [address] Dr. Ibis JimenezHemoglobin (Bld) [Mass/Vol]13.4 g/iRQdlagq06.0-16.0The [facility]ment on above:Performed By: #### ACET, SALYC #### [facility] [address] [place] [address] Dr. Ibis Soto #0.06 10e3/ulCritically high0.00-0.03The [facility] Comment on above:Performed By: #### ACET, SALYC #### [facility] [address] [place] [address] Dr. Ibis Soto %0.5 %Normal0.0-0.5The [facility] HamiltonComment on above: Performed By: #### ACET, SALYC #### [facility] [address] [place] [address] Dr. Ibis Monsalve #2.6 103/ulNormal1.2-3.8The [facility] HamiltonComment on above:Performed By: #### ACET, SALYC #### [facility] [address] [place] [address] Dr. Ibis Brennerhocytes/100 WBC (Bld)23.8 %Tdkjtu40.5-60.0The [facility] HamiltonComment on above:Performed By: #### ACET, SALYC #### [facility] [address] [place] [address] Dr. Ibis NewtonUAL DIFF REQNONormalThe [facility] HamiltonComment on above: Performed By: #### ACET, SALYC #### [facility] [address] [place] [address] Dr. Ibis Frank (RBC) [Entitic mass]28.8 ysWwbhhm68.7-34.0The [facility] HamiltonComment on above:Performed By: #### ACET, SALYC #### [facility] [address] [place] [address] Dr. Ibis Frank (RBC) [Mass/Vol]33.8 g/iZWcfeek33.9-35.2The [facility] HospitalComment on above:Performed By: #### ACET, SALYC #### [facility] [address] [place] [address] Dr. [facility]bis [facility] [place] (RBC) [Entitic vol]85.2 zCUdgpti77.0-99.0The [facility] HamiltonComment on above:Performed By: #### ACET, SALYC #### [facility] [address] [place] [address] Dr. Ibis Magallanes #0.8 103/ulNormal0.3-0.8The [facility] HamiltonComment on above:Performed By: #### ACET, SALYC #### [facility] [address] [place] [address] Dr. Ibis Barbaocytes/100 WBC (Bld)7.7 %Normal1.7-12.0[facility] Comment on above:Performed By: #### ACET, SALYC #### [facility] [address] [place] [address] Dr. Ibis Schultz #7.4 103/ulCritically high1.4-6.5The [facility] Comment on above:Performed By: #### ACET, SALYC #### [facility] [address] [place] [address] Dr. Ibis Hiutrophils/100 WBC (Bld)67.4 %Noxvvp86.0-75.0The [facility] HamiltonComment on above:Performed By: #### ACET, SALYC #### [facility] [address] [place] [address] Dr. Ibis Olsenlet mean volume (Bld) [Entitic vol]9.8 fLNormal9.5-13.5The [facility] HamiltonComment on above:Performed By: #### ACET, SALYC #### [facility] [address] [place] [address] Dr. Ibis JimenezPLT261 103/xpPutpye685-735Srw [facility] HamiltonComment on above: Performed By: #### ACET, SALYC #### [facility] [address] [place] [address] Dr. Ibis JimenezRBC4.66 106/ulNormal4.20-5.40The [facility] HamiltonComment on above:Performed By: #### ACET, SALYC #### [facility] [address] [place] [address] Dr. Ibis JimenezWBC10.9 103/ulNormal4.0-11.0The [facility] HamiltonComment on above:Performed By: #### ACET, SALYC #### [facility] [address] [place] [address] Dr. Ibis JimenezPROF CHEM 8 (BAS METB)on 98-75-7405Pdcdr gap [Moles/Vol]14.1 mmol/LNormalGood Samaritan HospitalComment on above:Performed By: #### BMP #### [facility] [address] [place] [address] Dr. Ibis JimenezCalcium [Mass/Vol]8.5 mg/dLNormal8.5-10.1[facility] Comment on above:Performed By: #### BMP #### [facility] [address] [place] [address] Dr. Ibis JimenezChloride [Moles/Vol]103 mmol/PGgnbxe37-678PuvGood Samaritan Hospital Comment on above:Performed By: #### BMP #### [facility] [address] [place] [address] Dr. Ibis JiemnezCO2 [Moles/Vol]22.5 mmol/OXmjrlj90.0-32.0The [facility] Comment on above:Performed By: #### BMP #### [facility] [address] [place] [address] Dr. Yilan ChangCreatinine [Mass/Vol]0.64 mg/dLNormal0.55-1.02The [facility] HamiltonComment on above:Performed By: #### BMP #### [facility] [address] [place] [address] Dr. Ibis RojasGFR-AF EGYPTIAN>60Normal>=60The [facility] HamiltonComment on above:Performed By: #### BMP #### [facility] [address] [place] [address] Dr. Ibis RojasGFR-NON AF EGYPTIAN>60Normal>=60The [facility] HamiltonComment on above:Performed By: #### BMP #### [facility] [address] [place] [address] Dr. Ibis JimenezGlucose [Mass/Vol]141 mg/dLCritically gahm50-783Jgq [facility] HamiltonComment on above:Performed By: #### BMP #### [facility] [address] [place] [address] Dr. Ibis JimenezPotassium [Moles/Vol]3.6 mmol/LNormal3.5-5.1The [facility] Comment on above:Performed By: #### BMP #### [facility] [address] [place] [address] Dr. Ibis JimenezSodium [Moles/Vol]136 mmol/NSoeijr206-284Qms [facility] Comment on above:Performed By: #### BMP #### [facility] [address] [place] [address] Dr. Ibis JimenezUrea nitrogen [Mass/Vol]16.0 mg/dLNormal7.0-18.0The [facility] HamiltonComment on above:Performed By: #### BMP #### [facility] [address] [place] [address] Dr. Ibis Lama nitrogen/Creatinine [Mass ratio]25.0 mg/mgNormalThe [facility] HamiltonComment on above:Performed By: #### BMP #### [facility] [address] [place] [address] Dr. Ibis GonzalesC AUTO DIFFon [id number] #0.0 103/ulNormal0.0-0.1The [facility] HamiltonComment on above:Performed By: #### ACET, SALYC #### [facility] [address] [place] [address] Dr. Ibis JimenezBasophils/100 WBC (Bld)0.4 %Normal0.2-2.0The [facility] Comment on above:Performed By: #### ACET, SALYC #### [facility] [address] [place] [address] Dr. Ibis Acevedo #0.2 103/ulNormal0.0-0.7The [facility] HamiltonComment on above: Performed By: #### ACET, SALYC #### [facility] [address] [place] [address] Dr. Ibis Rojasosinophils/100 WBC (Bld)4.1 %Normal0.9-7.0The [facility] Comment on above:Performed By: #### ACET, SALYC #### [facility] [address] [place] [address] Dr. Ibis Rojasrythrocyte distribution width (RBC) [Ratio]13.2 %Ynrulf95.0-15.0 The [facility] HamiltonComment on above:Performed By: #### ACET, SALYC #### [facility] [address] [place] [address] Dr. Ibis JimenezHematocrit (Bld) [Volume fraction]34.3 %Critically low36.0-48.0 The [facility] HamiltonComment on above:Performed By: #### ACET, SALYC #### [facility] [address] [place] [address] Dr. Ibis JimenezHemoglobin (Bld) [Mass/Vol]11.5 g/dLCritically low12.0-16.0The [facility] HamiltonComment on above:Performed By: #### ACET, SALYC #### [facility] [address] [place] [address] Dr. Ibis Soto #0.01 10e3/ulNormal0.00-0.03The [facility] HamiltonComment on above:Performed By: #### ACET, SALYC #### [facility] [address] [place] [address] Dr. Ibis Soot %0.2 %Normal0.0-0.5The [facility] HamiltonComment on above: Performed By: #### ACET, SALYC #### [facility] [address] [place] [address] Dr. Ibis Monsalve #1.5 103/ulNormal1.2-3.8The [facility] HamiltonComment on above:Performed By: #### ACET, SALYC #### [facility] [address] [place] [address] Dr. Ibis Brennerhocytes/100 WBC (Bld)26.4 %Pysluw20.5-60.0The [facility] HamiltonComment on above:Performed By: #### ACET, SALYC #### [facility] [address] [place] [address] Dr. Ibis Viera DIFF REQNONormalThe [facility] HamiltonComment on above: Performed By: #### ACET, SALYC #### [facility] [address] [place] [address] Dr. Ibis Irby (RBC) [Entitic mass]28.8 snUvjkph52.7-34.0The [facility]ment on above:Performed By: #### ACET, SALYC #### [facility] [address] [place] [address] Dr. Ibis Frank (RBC) [Mass/Vol]33.5 g/xWHiuoio01.9-35.2The [facility] HamiltonComment on above:Performed By: #### ACET, SALYC #### [facility] [address] [place] [address] Dr. Ibis Dan (RBC) [Entitic vol]86.0 iENhlsoa47.0-99.0The [facility] HamiltonComment on above:Performed By: #### ACET, SALYC #### [facility] [address] [place] [address] Dr. Ibis Magallanes #0.5 103/ulNormal0.3-0.8The [facility] HamiltonComment on above:Performed By: #### ACET, SALYC #### [facility] [address] [place] [address] Dr. Ibis Barbaocytes/100 WBC (Bld)8.2 %Normal1.7-12.0The [facility] Comment on above:Performed By: #### ACET, SALYC #### [facility] [address] [place] [address] Dr. Ibis Schultz #3.4 103/ulNormal1.4-6.5The [facility] HamiltonComment on above:Performed By: #### ACET, SALYC #### [facility] [address] [place] [address] Dr. Ibis Hiutrophils/100 WBC (Bld)60.7 %Pdgmkf55.0-75.0The [facility] HamiltonComment on above:Performed By: #### ACET, SALYC #### [facility] [address] [place] [address] Dr. Ibis Olsenlet mean volume (Bld) [Entitic vol]9.9 fLNormal9.5-13.5The [facility] HamiltonComment on above:Performed By: #### ACET, SALYC #### [facility] [address] [place] [address] Dr. Ibis JimenezPLT222 103/wxSntvkd727-049Ifb [facility] HamiltonComment on above: Performed By: #### ACET, SALYC #### [facility] [address] [place] [address] Dr. Ibis JimenezRBC3.99 106/ulCritically low4.20-5.40The [facility] HamiltonComment on above:Performed By: #### ACET, SALYC #### [facility] [address] [place] [address] Dr. Ibis JimenezWBC5.6 103/ulNormal4.0-11.0The [facility] HamiltonComment on above: Performed By: #### ACET, SALYC #### [facility] [address] [address] [address] Ibis JimenezPROF CHEM 8 (BAS METB)on [id number] gap [Moles/Vol]10.5 mmol/LNormalThe [facility] HamiltonComment on above:Performed By: #### BMP #### [facility] [address] [address] [address] Ibis JimenezCalcium [Mass/Vol]8.8 mg/dLNormal8.5-10.1The [facility] Comment on above:Performed By: #### BMP #### [facility] [address] [address] [address] Ibis JimenezChloride [Moles/Vol]105 mmol/CQncmuq61-419Cak [facility] Comment on above:Performed By: #### BMP #### [facility] [address] [place] [address] Dr. Ibis JimenezCO2 [Moles/Vol]24.9 mmol/WQdzgmw17.0-32.0[facility] Comment on above:Performed By: #### BMP #### [facility] [address] [address] [address] Ibis JimenezCreatinine [Mass/Vol]0.71 mg/dLNormal0.55-1.02The [facility] HamiltonComment on above:Performed By: #### BMP #### [facility] [address] [address] [address] Ibis RojasGFR-AF EGYPTIAN>60Normal>=60The [facility] HamiltonComment on above:Performed By: #### BMP #### [facility] [address] [address] [address] Ibis RojasGFR-NON AF EGYPTIAN>60Normal>=60The [facility] HamiltonComment on above:Performed By: #### BMP #### [facility] [address] [address] [address] Ibis JimenezGlucose [Mass/Vol]103 mg/xIEzhtbu52-564Qbu [facility] Comment on above:Performed By: #### BMP #### [facility] [address] [address] [address] Ibis JimenezPotassium [Moles/Vol]3.4 mmol/LCritically low3.5-5.1[facility] HospitalComment on above:Performed By: #### BMP #### [facility] [address] [address] [address] Ibis JimenezSodium [Moles/Vol]137 mmol/HLyjmqi326-794Ahr [facility] Comment on above:Performed By: #### BMP #### [facility] [address] [address] [address] Ibis JimenezUrea nitrogen [Mass/Vol]17.0 mg/dLNormal7.0-18.0[facility] HospitalComment on above:Performed By: #### BMP #### [facility] [address] [place] [address] Dr. Ibis Lama nitrogen/Creatinine [Mass ratio]23.9 mg/mgNormalThe [facility] HamiltonComment on above:Performed By: #### BMP #### [facility] [address] [place] [address] Dr. Ibis JimenezBasic Metab w/rfx MGon 10-20-2021(cont.)[facility] HospitalComment on above:Result Comment: Average GFR for 20-29 years old: 116 mL/min/1.73sq m Chronic Kidney Disease: <60 mL/min/1.73sq m Kidney failure: <15 mL/min/1.73sq m eGFR calculated using average adult body mass. Additional eGFR calculator available at: http://www.eFuelDepot.com/multiple_crcl_2012.htmPerformed By: #### BMPX #### [employer] [address] [place], [place] [id number] Order Booker: Shira Holden gap [Moles/Vol]10 mmol/LNormal9-17[facility] HospitalComment on above:Performed By: #### BMPX #### [employer] [address] [place] [address] Order Booker: CLARK Holdenalcium [Mass/Vol]7.8 mg/dLLow8.6-10.4[facility] HospitalComment on above:Performed By: #### BMPX #### [address] [address] Order Booker: CLARK Holdenhloride [Moles/Vol]109 mmol/YLkqz52-878VypclMercer County Community HospitalComment on above:Performed By: #### BMPX #### [address] [address] Order Booker: Tavon Nicole MDCO2 [Moles/Vol]20 mmol/JIxqxrc79-02BnmrdMercer County Community HospitalComment on above:Performed By: #### BMPX #### [address] [address] Order Booker: CLARK Holdenreatinine [Mass/Vol]0.45 mg/dLLow0.50-0.90[facility] Community HospitalComment on above:Performed By: #### BMPX #### [address] [address] Order Booker: Tavon Nicole MDGFR, Amer>60Normal>60[facility] HospitalComment on above:Performed By: #### BMPX #### [address] [address] Order Booker: Tavon Nicole MDGFR,non Amer>60Normal>60[facility] HospitalComment on above:Performed By: #### BMPX #### [address] [address] Order Booker: Tavon Nicole MDGlucose [Mass/Vol]84 mg/zNNptarv69-01MaoigJohn F. Kennedy Memorial HospitalComment on above:Performed By: #### BMPX #### [employer] [address] [place] [address] Order Booker: MAGED Holdenotassium [Moles/Vol]4.1 mmol/LNormal3.7-5.3 [facility] Community HospitalComment on above:Result Comment: SPECIMEN SLIGHTLY HEMOLYZED, RESULTS MAY BE ADVERSELY AFFECTED.Performed By: #### BMPX #### [facility] [address] [place] [address] Order Booker: ALEX Holdenodium [Moles/Vol]139 mmol/UPocipb592-860FjbpoMercer County Community HospitalComment on above:Performed By: #### BMPX #### [employer] [address] [place] [address] Order Booker: Tavon Nicole MDUrea nitrogen [Mass/Vol]8 mg/dLNormal6-20[facility] HospitalComment on above:Performed By: #### BMPX #### [employer] [address] [place] [address] Order Booker: Tavon Nicole MDBathree rivers medical center Metabolic Panel w/ Reflex to MGon [id number] gap [Moles/Vol]10 mmol/L9 - 17 mmol/LBON [facility] Calcium [Mass/Vol]7.8 mg/dLLow8.6 - 10.4 mg/dLBON SECAD[facility] DealsNear.me HEALTHChloride [Moles/Vol]109 mmol/LHigh98 - 107 mmol/LBON SECOURS [employer]me HEALTHCO2 [Moles/Vol] 20 mmol/L20 - 31 mmol/LBON SEC[facility] [place] fastDoveCreatinine [Mass/Vol]0.45 mg/dL Low0.5 - 0.9 mg/dLBON SECSolarCity New Zealand Limited HEALTHGFR >6060 - PINF mL/minBON SECOURS DealsNear.me HEALTHGFR Non->6060 - PINF mL/minBON SECCheasapeake Bay Roasting CompanyGFR/1.73 sq M.predicted MDRD (S/P/Bld) [Vol rate/Area]B[facility] HOSPITALComment on above:Average GFR for 20-29 years old: 116 mL/min/1.73sq m Chronic Kidney Disease: <60 mL/min/1.73sq m Kidney failure: <15 mL/min/1.73sq m eGFR calculated using average adult body mass. Additional eGFR calculator available at: http://www.Soko/multiple_crcl_2012.htm Glucose [Mass/Vol]84 mg/dL70 - 99 mg/dLBON [facility]ATION HOSPITALInterpretation and review of laboratory resultsAbnormalBON [facility] HOSPITALPotassium [Moles/Vol]4.1 mmol/L3.7 - 5.3 mmol/LBON [facility]IL[facility]ATION HOSPITALComment on above: SPECIMEN SLIGHTLY HEMOLYZED, RESULTS MAY BE ADVERSELY AFFECTED.Sodium [Moles/Vol]139 mmol/L135 - 144 mmol/LBON [facility] REHABIL[facility]ATION HOSPITALUrea nitrogen (BldV) [Mass/Vol]8 mg/dL6 - 20 mg/dLBON SECMAYO CLINIC HEALTH SYSTEM– EAU CLAIRECBC with Auto Differentialon [id number] Eos #0.15B[facility]OS[facility]ITALAbsolute Immature GranulocyteBON SECMARIETTA MEMORIAL HOSPITALAbsolute Lymph #1.48 [facility] HOSPITALAbsolute Acadia #0.28[facility] HOSPITALBasophils (Bld) [#/Vol]0.03 10*3/uLBON SECMARIETTA MEMORIAL HOSPITALBasophils/100 WBC (Bld)1 %0 - 2 %[facility] CENTEREosinophils/100 WBC (Bld)3 %1 - 4 %[facility] MEDICAL CENTERHematocrit (Bld) [Volume fraction]35.5 %Low36.3 - 47.1 %[facility] MEDICAL CENTERHemoglobin (Bld) [Mass/Vol]11.3 g/dLLow11.9 - 15.1 g/dLBON SECMARIETTA MEMORIAL HOSPITALImmature granulocytes/100 WBC (Bld)0 %0B[facility] Interpretation and review of laboratory resultsAbnormalSOUTHER[facility] Lymphocytes/100 WBC (Bld)34 %24 - 43 %BON [facility] REHABILITATION HOSPITALMCH (RBC) [Entitic mass]27.9 pg25.2 - 33.5 pgBON ADENA FAYETTE MEDICAL CENTERHC (RBC) [Mass/Vol]31.8 g/dL28.4 - 34.8 g/dLBON SECPROMEDICA TOLEDO HOSPITALV (RBC) [Entitic vol]87.7 fL82.6 - 102.9 fLSOUTHERN VIRGINIA REGIONAL MEDICAL CENTERMonocytes/100 WBC (Bld)6 %3 - 12 %[facility] MEDICAL CENTERNRBC Automated0.00.0 per 100 WBCSOUTHERN VIRGINIA REGIONAL MEDICAL CENTERPlatelet distribution width (Bld) [Ratio]12.9 %11.8 - 14.4 %[facility] Platelets (Bld) [#/Vol]See Reflexed IPF ResultSOUTHERN VIRGINIA REGIONAL MEDICAL CENTERRBC (Bld) [#/Vol]4.05 10*6/uL3.95 - 5.11 m/uLSOUTHERN VIRGINIA REGIONAL MEDICAL CENTERSegmented neutrophils/100 WBC (Bld)55 %36 - 65 %[facility] CENTERSegs Absolute2.42 BON [facility] REHABIL[facility]ATION HOSPITALWBC (Bld) [#/Vol]4.4 10*3/uLBON [facility] HEALTHCARE CENTERCBC with Diffon [id number]. Basophil0.03 k/uLNormal 0.00-0.20[facility] Community HospitalComment on above:Performed By: #### CDP, IPF #### [employer] [address] [place] [address] Order Booker: Wendy Holden.Imm.Granulocyte<0.17Ukboql0.00-0.30[facility] Community HospitalComment on above:Performed By: #### CDP, IPF #### [employer] [address] [place] [address] Order Booker: Wendy Holden.Neutrophil (Seg)2.42 k/uLNormal1.50-8.10 [facility] HospitalComment on above:Performed By: #### CDP, IPF #### [employer] [address] [place] [address] Order Booker: Tavon Nicole MDBasophils/100 WBC (Bld)1 %Normal0-2MKaiser Permanente Santa Teresa Medical CenterComment on above:Performed By: #### CDP, IPF #### [address] [address] Order Booker: Tavon Nicole MDEosinophils (Bld) [#/Vol]0.15 10*3/uLNormal 0.00-0.44[facility] HospitalComment on above:Performed By: #### CDP, IPF #### [address] [address] Order Booker: Tavon Nicole MDEosinophils/100 WBC (Bld)3 %Normal1-4[facility] HospitalComment on above:Performed By: #### CDP, IPF #### [address] [address] Order Booker: Tavon Nicole MDImmature granulocytes/100 WBC (Bld)0 %Normal0 [facility] HospitalComment on above:Performed By: #### CDP, IPF #### [address] [address] Order Booker: Antonia Holdenmphocytes (Bld) [#/Vol]1.48 10*3/uLNormal 1.10-3.70[facility] HospitalComment on above:Performed By: #### CDP, IPF #### [address] [address] Order Booker: Antonia Holdenmphocytes/100 WBC (Bld)34 %Qlbebj35-38ErimrMercer County Community HospitalComment on above:Performed By: #### CDP, IPF #### [address] [address] Order Booker: JUNAID Holednonocytes (Bld) [#/Vol]0.28 10*3/uLNormal 0.10-1.20[facility] HospitalComment on above:Performed By: #### CDP, IPF #### [address] [address] Order Booker: JUNAID Holdenonocytes/100 WBC (Bld)6 %Normal3-12[facility] HospitalComment on above:Performed By: #### CDP, IPF #### [address] [address] Order Booker: Tavon Nicole MDNeutrophil (Seg)55 %Slizue28-45SpzerMercer County Community HospitalComment on above:Performed By: #### CDP, IPF #### [address] [address] Order Booker: Tavon Nicole MDErythrocyte distribution width (RBC) [Ratio]12.9 %Wpvnxn65.8-14.4[facility] HospitalComment on above:Performed By: #### GAMALIEL, IPF #### [address] [address] Order Booker: Tavon Nicole MDHematocrit (Bld) [Volume fraction]35.5 %Low 36.3-47.1MKaiser Permanente Santa Teresa Medical CenterComment on above:Performed By: #### CDP, IPF #### [address] [address] Order Booker: Tavon Nicole MDHemoglobin (Bld) [Mass/Vol]11.3 g/dLLow11.9-15.1 [facility] HospitalComment on above:Performed By: #### CDP, IPF #### [address] [address] Order Booker: JUNAID HoldenCH (RBC) [Entitic mass]27.9 wtVmxzbn79.2-33.5 [facility] HospitalComment on above:Performed By: #### CDP, IPF #### [address] [address] Order Booker: JUNAID HoldenCHC (RBC) [Mass/Vol]31.8 g/eSKqqubb88.4-34.8 [facility] HospitalComment on above:Performed By: #### CDP, IPF #### [address] [address] Order Booker: JUNAID HoldenCV (RBC) [Entitic vol]87.7 dBHwhrbb03.6-102.9 [facility] HospitalComment on above:Performed By: #### CDP, IPF #### [address] [address] Order Booker: Tavon Nicole MDNRBC Automated0.0 per 100 WBCNormal0.0[facility] HospitalComment on above:Performed By: #### CDP, IPF #### [address] [address] Order Booker: Kaylee Holdentelet CountSee Reflexed IPF ResultNormal 138-453[facility] HospitalComment on above:Performed By: #### CDP, IPF #### [address] [address] Order Booker: FRANCISCO HoldenBC (Bld) [#/Vol]4.05 10*6/uLNormal3.95-5.11 [facility] HospitalComment on above:Performed By: #### CDP, IPF #### [address] [address] Order Booker: JESSE HoldenBC (Bld) [#/Vol]4.4 10*3/uLNormal3.5-11.3[facility] HospitalComment on above:Performed By: #### CDP, IPF #### [facility] [address] [place] [address] Order Booker: JUSTIN Holden video monitoringon [id number] Owais, MD 10/20/2021 12:11 PM Referring physician: Chris Blanchard APRN Date:10/20/2021 Start Time:10/19/2021 @1258 End Time: 10/20/2021 @ 1200 Indication Patient with recurrent events Introduction This continuous video-EEG was acquired using a I-MD workstation at 256 samples/s. Electrodes were placed [...] Board Certified. Neurology Board Certified. Electronically Signed [employer] Phone: eeg video monitoringOrdered By: Raiza Land on [id number] Phone: Immature Platelet Fractionon [id number], FluorescencePlatelet clumps present, count appears adequate.Lime MicrosystemsPLT, Immature Fract.on [id number], Fluoresc.Platelet clumps present, count appears adequate.Yxbpkt058-763TigtvMercer County Community HospitalComment on above:Performed By: #### CDP, IPF #### [address] [address] Order Booker: MAGED HoldenROLACTINon 33-41-8368Zunmhxvvn94.7 ng/mL Critically high4.8-23.3TCleveland Clinic FoundationComment on above:Performed By: #### CVDTBH #### [facility] [address] [place], [place] [address] Dr. Ibis Nelson 39-35-4147Sxiizcydftp distribution width (RBC) [Ratio]12.9 %Qchihm64.8-14.4[facility] HospitalComment on above:Performed By: #### TROPI, LACTIC, CMPX, CBC #### [address] [address] Order Booker: Tavon Nicole MDHematocrit (Bld) [Volume fraction]31.5 %Low 36.3-47.1MKaiser Permanente Santa Teresa Medical CenterComment on above:Performed By: #### TROPI, LACTIC, CMPX, CBC #### [facility] [employer] [address] [place] [address] Order Booker: Tavon Nicole MDHemoglobin (Bld) [Mass/Vol]10.8 g/dLLow11.9-15.1 [facility] HospitalComment on above:Performed By: #### TROPI, LACTIC, CMPX, CBC #### [facility] [employer] [address] [place] [address] Order Booker: JUNAID HoldenCH (RBC) [Entitic mass]29.1 pwGnnrhb19.2-33.5 [facility] HospitalComment on above:Performed By: #### TROPI, LACTIC, CMPX, CBC #### [address] [address] Order Booker: JUNAID HoldenCHC (RBC) [Mass/Vol]34.3 g/tOEzonvh23.4-34.8 [facility] HospitalComment on above:Performed By: #### TROPI, LACTIC, CMPX, CBC #### [address] [address] Order Booker: JUNAID HoldenCV (RBC) [Entitic vol]84.9 xPYgvwqt85.6-102.9 [facility] HospitalComment on above:Performed By: #### TROPI, LACTIC, CMPX, CBC #### [address] [address] Order Booker: NIKO HoldenBC Automated0.0 per 100 WBCNormal0.0[facility] HospitalComment on above:Performed By: #### TROPI, LACTIC, CMPX, CBC #### [address] [address] Order Booker: Greta Holden mean volume (Bld) [Entitic vol]9.8 fL Normal8.1-13.5[facility] HospitalComment on above:Performed By: #### TROPI, LACTIC, CMPX, CBC #### [address] [address] Order Booker: Kaylee Holdenteyanni (Bld) [#/Vol]281 10*3/cLLmipzb952-140 [facility] HospitalComment on above:Performed By: #### TROPI, LACTIC, CMPX, CBC #### [address] [address] Order Booker: Tavon Nicole MDRBC (Bld) [#/Vol]3.71 10*6/uLLow3.95-5.11[facility] HospitalComment on above:Performed By: #### TROPI, LACTIC, CMPX, CBC #### [facility] [address] [place], [place] [id number] Order Booker: Tavon Nicole MDWBC (Bld) [#/Vol]5.0 10*3/uLNormal3.5-11.3[facility] HospitalComment on above:Performed By: #### TROPI, LACTIC, CMPX, CBC #### [facility] [address] [place], [place] [address] Order Booker: Tavon Nicole MDHematocrit (Bld) [Volume fraction]31.5 %Low36.3 - 47.1 %[facility] CENTERHemoglobin (Bld) [Mass/Vol]10.8 g/dLLow11.9 - 15.1 g/dLBON [facility] HOSPITALInterpretation and review of laboratory results AbnormalBON ADENA FAYETTE MEDICAL CENTERH (RBC) [Entitic mass]29.1 pg25.2 - 33.5 pgBON ADENA FAYETTE MEDICAL CENTERHC (RBC) [Mass/Vol]34.3 g/dL28.4 - 34.8 g/dLBON SECPROMEDICA TOLEDO HOSPITALV (RBC) [Entitic vol]84.9 fL82.6 - 102.9 fLSOUTHERN VIRGINIA REGIONAL MEDICAL CENTERNRBC Automated0.00.0 per 100 WBCBON [facility] REHABILITATION HOSPITALPlatelet distribution width (Bld) [Ratio]12.9 %11.8 - 14.4 %[facility] Platelet mean volume (Bld) [Entitic vol]9.8 fL8.1 - 13.5 fLBON [facility] HEALTHPlatelets (Bld) [#/Vol]281 10*3/uLBON SECMARIETTA MEMORIAL HOSPITALRBC (Bld) [#/Vol]3.71 10*6/uLLow3.95 - 5.11 m/uLBON SECMARIETTA MEMORIAL HOSPITALWBC (Bld) [#/Vol] 5.0 10*3/uLBON [facility] OHIO HEALTHBON SECMARIETTA MEMORIAL HOSPITALCBC AUTO DIFFon [id number] #0.2 103/ulNormal0.0-0.7The [facility]Comment on above: Performed By: #### AMM #### [facility] [address] [place] [address] Dr. Ibis Rojasosinophils/100 WBC (Bld)3.9 %Normal0.9-7.0The [facility] Comment on above:Performed By: #### AMM #### [facility] [address] [place] [address] Dr. Ibis Rojasrythrocyte distribution width (RBC) [Ratio]13.1 %Isfgdo77.0-15.0 The [facility] HamiltonComment on above:Performed By: #### AMM #### [facility] [address] [place] [address] Dr. Ibis JimenezHematocrit (Bld) [Volume fraction]33.4 %Critically low36.0-48.0 The [facility] HamiltonComment on above:Performed By: #### AMM #### [facility] [address] [place] [address] Dr. Ibis JimenezHemoglobin (Bld) [Mass/Vol]11.1 g/dLCritically low12.0-16.0The [facility] HamiltonComment on above:Performed By: #### AMM #### [facility] [address] [place] [address] Dr. Ibis VuongMPH #1.2 103/ulNormal1.2-3.8The [facility] HamiltonComment on above:Performed By: #### AMM #### [facility] [address] [place] [address] Dr. Ibis JimenezLymphocytes/100 WBC (Bld)25.9 %Lwetkc56.5-60.0The [facility] HamiltonComment on above:Performed By: #### AMM #### [facility] [address] [place] [address] Dr. Ibis JimenezMCHC (RBC) [Mass/Vol]33.2 g/cDCdxdab08.9-35.2The [facility] HamiltonComment on above:Performed By: #### AMM #### [facility] [address] [address] [address] Ibis Dan (RBC) [Entitic vol]85.9 kRKvprul42.0-99.0The [facility] HamiltonComment on above:Performed By: #### AMM #### [facility] [address] [place] [address] Dr. Ibis Barbaocytes/100 WBC (Bld)7.7 %Normal1.7-12.0The [facility] Comment on above:Performed By: #### AMM #### [facility] [address] [place] [address] Dr. Ibis Schultz #2.9 103/ulNormal1.4-6.5The [facility] HamiltonComment on above:Performed By: #### AMM #### [facility] [address] [place] [address] Dr. Ibis Hiutrophils/100 WBC (Bld)61.5 %Iiswjw03.0-75.0The [facility] HamiltonComment on above:Performed By: #### AMM #### [facility] [address] [place] [address] Dr. Ibis JimenezPLT264 103/rmEpojxu701-028Nit [facility] HamiltonComment on above: Performed By: #### AMM #### [facility] [address] [place] [address] Dr. Ibis JimenezRBC3.89 106/ulCritically low4.20-5.40The [facility] HamiltonComment on above:Performed By: #### AMM #### [facility] [address] [place] [address] Dr. Ibis JimenezWBC4.7 103/ulNormal4.0-11.0The [facility]red Hospital Daytonment on above: Performed By: #### AMM #### [facility] [address] [place] [address] Dr. Ibis Escamilla #0.0 103/ulNormal0.0-0.1The Alejandra HospitalComment on above:Performed By: #### AMM #### [facility] [address] [place] [address] Dr. Ibis JimenezPerformed By: #### CVDTBH #### [facility] [address] [place] [address] Dr. Ibis JimenezBasophils/100 WBC (Bld)0.6 %Normal0.2-2.0[facility] Comment on above:Performed By: #### AMM #### [facility] [address] [place] [address] Dr. Ibis JimenezPerformed By: #### CVDTBH #### [facility] [address] [place] [address] Dr. Ibis Acevedo #0.3 103/ulNormal0.0-0.7The [facility] HamiltonComment on above: Performed By: #### CVDTBH #### [facility] [address] [place] [address] Dr. Ibis Rojasosinophils/100 WBC (Bld)5.0 %Normal0.9-7.0[facility] Comment on above:Performed By: #### CVDTBH #### [facility] [address] [place] [address] Dr. Ibis Rojasrythrocyte distribution width (RBC) [Ratio]12.8 %Murfpg15.0-15.0 The [facility] HamiltonComment on above:Performed By: #### CVDTBH #### [facility] [address] [place] [address] Dr. Ibis JimenezHematocrit (Bld) [Volume fraction]38.0 %Raoehv99.0-48.0[facility] HospitalComment on above:Performed By: #### CVDTBH #### [facility] [address] [place] [address] Dr. Ibis JimenezHemoglobin (Bld) [Mass/Vol]12.7 g/qBDoybjn30.0-16.0The [facility] HamiltonComment on above:Performed By: #### CVDTBH #### [facility] [address] [place], [place] [address] Dr. Ibis Soto #0.02 10e3/ulNormal0.00-0.03The [facility] HamiltonComment on above:Performed By: #### AMM #### [facility] [address] [place] [address] Dr. Ibis Cortesformed By: #### CVDTBH #### [facility] [address] [place] [address] Dr. Ibis Soto %0.4 %Normal0.0-0.5The [facility] HamiltonComment on above: Performed By: #### AMM #### [facility] [address] [place] [address] Dr. Ibis Cortesformed By: #### CVDTBH #### [facility] [address] [place] [address] Dr. Ibis Monsalve #1.7 103/ulNormal1.2-3.8The [facility] HamiltonComment on above:Performed By: #### CVDTBH #### [facility] [address] [place] [address] Dr. Ibis Brennerhocytes/100 WBC (Bld)30.7 %Bsccje13.5-60.0The [facility] on above:Performed By: #### CVDTBH #### [facility] [address] [place] [address] Dr. Ibis NewtonUAL DIFF REQNONormalThe [facility] HamiltonComment on above: Performed By: #### AMM #### [facility] [address] [place] [address] Dr. Ibis Cortesformed By: #### CVDTBH #### [facility] [address] [place] [address] Dr. Ibis Irby (RBC) [Entitic mass]28.5 ybAkgbow92.7-34.0The [facility] HamiltonComment on above:Performed By: #### AMM #### [facility] [address] [place] [address] Dr. Ibis Cortesformed By: #### CVDTBH #### [facility] [address] [place] [address] Dr. Ibis Frank (RBC) [Mass/Vol]33.4 g/qIWlublf75.9-35.2The [facility] HamiltonComment on above:Performed By: #### CVDTBH #### [facility] [address] [place] [address] Dr. Ibis Frank (RBC) [Entitic vol]85.2 cDKhxxiy11.0-99.0The [facility] HospitalComment on above:Performed By: #### CVDTBH #### [facility] [address] [place] [address] Dr. Ibis Magallanes #0.4 103/ulNormal0.3-0.8The [facility] HamiltonComment on above:Performed By: #### AMM #### [facility] [address] [place] [address] Dr. Ibis JimenezPerformed By: #### CVDTBH #### [facility] [address] [place] [address] Dr. Ibis Barbaocytes/100 WBC (Bld)8.1 %Normal1.7-12.0The [facility] Comment on above:Performed By: #### CVDTBH #### [facility] [address] [place] [address] Dr. Ibis Schultz #3.0 103/ulNormal1.4-6.5The [facility]tering Health HamiltonComment on above:Performed By: #### CVDTBH #### [facility] [address] [place] [address] Dr. Ibis Hiutrophils/100 WBC (Bld)55.2 %Onkldu46.0-75.0The [facility] Health HamiltonComment on above:Performed By: #### CVDTBH #### [facility] [address] [place] [address] Dr. Ibis Olsenlet mean volume (Bld) [Entitic vol]9.5 fLNormal9.5-13.5The [facility] HamiltonComment on above:Performed By: #### AMM #### [facility] [address] [place] [address] Dr. Ibis JimenezPerformed By: #### CVDTBH #### [facility] [address] [place] [address] Dr. Ibis JimenezPLT343 103/iwHpjdls661-126Etd [facility] HamiltonComment on above: Performed By: #### CVDTBH #### [facility] [address] [place] [address] Dr. Ibis JimenezRBC4.46 106/ulNormal4.20-5.40The [facility] HamiltonComment on above:Performed By: #### CVDTBH #### [facility] [address] [place] [address] Dr. Ibis JimenezWBC5.4 103/ulNormal4.0-11.0The [facility] HamiltonComment on above: Performed By: #### CVDTBH #### [facility] [address] [place] [address] Dr. Ibis JimenezCT HEAD WO CONon [id number] HEAD WO CONEXAMINATION: CT HEAD WO CON HISTORY: seizures COMPARISON: [...] Electronically authenticated by: LOPEZ REYNOLDS Date: 2021-10-19 07:31[facility] CenterCom Metabolic Pr/rfx MGon 10-19-2021(cont.)NormalMercy U.S. Naval HospitalComment on above:Result Comment: Average GFR for 20-29 years old: 116 mL/min/1.73sq m Chronic Kidney Disease: <60 mL/min/1.73sq m Kidney failure: <15 mL/min/1.73sq m eGFR calculated using average adult body mass. Additional eGFR calculator available at: http://www.Soko/multiple_crcl_2012.htmPerformed By: #### TROPI, LACTIC, CMPX, CBC #### [place] [address] Order Booker: Tavon Nicole MDAlbumin [Mass/Vol]3.5 g/dLNormal3.5-5.2MKaiser Permanente Santa Teresa Medical CenterComment on above:Performed By: #### TROPI, LACTIC, CMPX, CBC #### [place] [address] Order Booker: Tavon Nicole MDAlbumin/Glob Ratio1.7Saaovb8.0-2.5[facility] HospitalComment on above:Performed By: #### TROPI, LACTIC, CMPX, CBC #### [place] [address] Order Booker: Tavon Nicole MDAlkaline Phos69 U/XEhmlrc10-036WkjtnMercer County Community HospitalComment on above:Performed By: #### TROPI, LACTIC, CMPX, CBC #### [place] [address] Order Booker: Tavon Nicole MDALT [Catalytic activity/Vol]15 U/LNormal5-33 [facility] HospitalComment on above:Performed By: #### TROPI, LACTIC, CMPX, CBC #### [place] [address] Order Booker: Tavon Nicole MDAnion gap [Moles/Vol]13 mmol/LNormal9-17[facility] HospitalComment on above:Performed By: #### TROPI, LACTIC, CMPX, CBC #### [facility] [address] [place] [address] Order Booker: Tavon Nicole MDAST [Catalytic activity/Vol]12 U/LNormal<32[facility] HospitalComment on above:Performed By: #### TROPI, LACTIC, CMPX, CBC #### [address] [address] Order Booker: Tavon Nicole MDBilirubin [Mass/Vol]0.24 mg/dLLow0.3-1.2MKaiser Permanente Santa Teresa Medical CenterComment on above:Performed By: #### TROPI, LACTIC, CMPX, CBC #### [address] [address] Order Booker: Tavon Nicole MDCalcium [Mass/Vol]8.1 mg/dLLow8.6-10.4[facility] HospitalComment on above:Performed By: #### TROPI, LACTIC, CMPX, CBC #### [address] [address] Order Booker: Tavon Nicole MDChloride [Moles/Vol]107 mmol/LEccaeb15-664LnqtqMercer County Community HospitalComment on above:Performed By: #### TROPI, LACTIC, CMPX, CBC #### [address] [address] Order Booker: Tavon Nicole MDCO2 [Moles/Vol]19 mmol/OMqw13-20AplrwMercer County Community HospitalComment on above:Performed By: #### TROPI, LACTIC, CMPX, CBC #### [address] [address] Order Booker: Tavon Nicole MDCreatinine [Mass/Vol]0.53 mg/dLNormal0.50-0.90 [facility] HospitalComment on above:Performed By: #### TROPI, LACTIC, CMPX, CBC #### [facility] [address] [place] [address] Order Booker: Tavon Nicole MDGFR, Amer>60Normal>60[facility] Community HospitalComment on above:Performed By: #### TROPI, LACTIC, CMPX, CBC #### [facility] [address] [place] [address] Order Booker: DEJA Holden,non Amer>60Normal>60MerKentfield Hospital San FranciscoComment on above:Performed By: #### TROPI, LACTIC, CMPX, CBC #### [facility] [address] [place] [address] Order Booker: Tavon Nicole MDGlucose [Mass/Vol]81 mg/bBEwufkw71-01OvrsdKaiser Permanente Santa Teresa Medical CenterComment on above:Performed By: #### TROPI, LACTIC, CMPX, CBC #### [address] [address] Order Booker: Tavon Nicole MDPotassium [Moles/Vol]3.9 mmol/LNormal3.7-5.3 [facility] HospitalComment on above:Performed By: #### TROPI, LACTIC, CMPX, CBC #### [address] [address] Order Booker: Tavon Nicole MDProtein [Mass/Vol]6.0 g/dLLow6.4-8.3MKaiser Permanente Santa Teresa Medical CenterComment on above:Performed By: #### TROPI, LACTIC, CMPX, CBC #### [address] [address] Order Booker: Tavon Nicole MDSodium [Moles/Vol]139 mmol/CHftrsv977-953YphzaMercer County Community HospitalComment on above:Performed By: #### TROPI, LACTIC, CMPX, CBC #### [facility] [address] [place] [address] Order Booker: Tavon Nicole MDUrea nitrogen [Mass/Vol]10 mg/dLNormal6-20[facility] Community HospitalComment on above:Performed By: #### TROPI, LACTIC, CMPX, CBC #### [facility] [address] [place], [place] [address] Order Booker: CLARK Holdenomprehensive Metabolic Panel w/ Reflex to MGon [id number] [Mass/Vol]3.5 g/dL3.5 - 5.2 g/dLBON SECOURS [facility] Albumin/Globulin [Mass ratio]1.4 {ratio}1 - 2.5B[facility]OURS MERCY HEALTHALP (Bld) [Catalytic activity/Vol]69 U/L35 - 104 U/LBON SECOURS MERCY HEALTHALT [Catalytic activity/Vol]15 U/L5 - 33 U/LBON SECOURS MERCY HEALTHAnion gap [Moles/Vol]13 mmol/L9 - 17 mmol/LBON SECOURS MERCY HEALTHAST [Catalytic activity/Vol]12 U/L NINF - 32 U/LBON [facility]OURS MERCY HEALTHBilirubin [Mass/Vol]0.24 mg/dLLow0.3 - 1.2 mg/dLBON SECOURS MERCY HEALTHCalcium [Mass/Vol]8.1 mg/dLLow8.6 - 10.4 mg/dLBON SECOURS MERCY HEALTHChloride [Moles/Vol]107 mmol/L98 - 107 mmol/LBON SECOURS MERCY HEALTHCO2 [Moles/Vol]19 mmol/LLow20 - 31 mmol/LBON [facility]RS [facility] Creatinine [Mass/Vol]0.53 mg/dL0.5 - 0.9 mg/dLBON SECOURS MERCY HEALTHFree PSA/Total PSA [Mass fraction]6.0 g/dLLow6.4 - 8.3 g/dLBON SECOURS MERCY [facility]ALTH GFR >6060 - PINF mL/minB[facility] SECOURS MERCY HEALTHGFR Non->6060 - PINF mL/minBON SECOURS MERCY HEALTHGFR/1.73 sq M.predicted MDRD (S/P/Bld) [Vol rate/Area][facility] on above:Average GFR for 20-29 years old: 116 mL/min/1.73sq m Chronic Kidney Disease: <60 mL/min/1.73sq m Kidney failure: <15 mL/min/1.73sq m eGFR calculated using average adult body mass. Additional eGFR calculator available at: http://www.Soko/VoltServer_crcl_2012.htm Glucose [Mass/Vol]81 mg/dL70 - 99 mg/dLBON SELECT MEDICAL OHIO[facility]ALTH REHABILITATION HOSPITALInterpretation and review of laboratory resultsAbnormalBON SELECT MED[facility] OHIO[facility] REHABILITATION HOSPITALPotassium [Moles/Vol]3.9 mmol/L3.7 - 5.3 mmol/LBON [facility] REHABILITATION HOSPITALSodium [Moles/Vol] 139 mmol/L135 - 144 mmol/LBON [facility] REHABILITATION HOSPITALUrea nitrogen (BldV) [Mass/Vol]10 mg/dL6 - 20 mg/dLBON [facility] Covid-19 PCR (CVDTBH)on [id number]-CoV-2 (COVID-19) RNA SAURABH+probe Ql (Unsp spec)Not detectedNormalNOT DETECTEDThe [facility] on above:Result Comment: When diagnostic testing is negative, the [...] for this test is supported by the [place] of Health and Human Service's declaration that circumstances exist to justify the emergency use of in vitro diagnostics for the detection and/or diagnosis of the virus that causes COVID-19. This EUA will remain in effect for the duration of the COVID-19 declaration justifying emergency of IVDs, unless it is terminated or revoked by the FDA (after which the test may no longer be used).Performed By: #### CVDTBH #### [facility] [address] [place] [address] Dr. Ibis Cristina SCREEN RAPID (URINE)on [id number]P [facility] on above:Performed By: #### BMP #### [facility] [address] [place] [address] Dr. Ibis JimenezBARPositiveAbnormalNEGAdams County Hospital on above: Performed By: #### BMP #### [facility] [address] [place] [address] Dr. Ibis JimenezBUPNegativeNormalNEGAdams County Hospital on above: Performed By: #### BMP #### [facility] [address] [place] [address] Dr. Ibis JimenezBZOPositiveSt. Clare HospitalNEGAdams County Hospital on above: Performed By: #### BMP #### [facility] [address] [place] [address] Dr. Ibis DanielCNegativeNormalNEGAdams County Hospital on above: Performed By: #### BMP #### [facility] [address] [place] [address] Dr. Ibis YanMagruder Memorial HospitalComselect specialty hospital-flint on above: Result Comment: AMP (Amphetamine): 500ng/mL, BAR (Barbituates): 200 ng/mL, BZO (Benzodiazepines): 150 ng/mL, BUP (Buprenorphine): 10 ng/mL, SEMAJ (Cocaine): 150 ng/mL, mAMP (Methamphetamine): 500 ng/mL, MTD (Methadone): 200 ng/mL, OPI (Opiates): 100 ng/mL, OXY (Oxycodone): 100 ng/mL, PCP (Phencyclidine): 25 ng/mL, PPX (Propoxyphene): 300 ng/mL, THC (Cannabinoids): 50 ng/mL, TCA (Trycyclic Antidepressants): 300 ng/mLPerformed By: #### BMP #### [facility] [address] [place] [address] Dr. Yilan ChangDRUG CUT HEADERDRUG CLASS TEST SYSTEM CUT-OFF CONCENTRATIONS ARE FOLLOWS:NormalThe [facility] HamiltonComment on above:Performed By: #### BMP #### [facility] [address] [place] [address] Dr. Ibis JimenezmAMPNegativeNormalNEGATIVEGood Samaritan HospitalComselect specialty hospital-[facility] on above: Performed By: #### BMP #### [facility] [address] [address] [address] Ibis iJmenezMTDNegativeNormalNEGATIVEGood Samaritan HospitalComselect specialty hospital-[facility] on above: Performed By: #### BMP #### [facility] [address] [address] [address] Ibis JimenezOPIPositiveAbnormalNEGATIVEGood Samaritan HospitalComselect specialty hospital-[facility] on above: Performed By: #### BMP #### [facility] [address] [place] [address] Dr. Ibis JimenezOXYPositiveAbnormalNEGATIVEGood Samaritan HospitalComselect specialty hospital-[facility] on above: Performed By: #### BMP #### [facility] [address] [place] [address] Dr. Ibis JimenezPCPNegativeNormalNEGATIVEGood Samaritan HospitalComselect specialty hospital-[facility] on above: Performed By: #### BMP #### [facility] [address] [place] [address] Dr. Ibis JimenezPPXNegativeNormalNEGATIVEGrand [facility] on above: Performed By: #### BMP #### [facility] [address] [place] [address] Dr. Ibis JimenezTCANegativeNormalNEGATIVEGood Samaritan HospitalComselect specialty hospital-[facility] on above: Performed By: #### BMP #### [facility] [address] [address] [address] Ibis JimenezTHCNegativeNormalNEGATIVEGrand [facility] on above: Performed By: #### BMP #### [facility] [address] [place] [address] Dr. Baumann ChangER URINE PROFILEon 10-80-2466Rdtqlwsci Ql (U)NegativeNormal NEGATIVEKettering Health Troy HospitalComment on above:Performed By: #### BMP #### [facility] [address] [address] [address] Ibis JimenezClarity (U)CLEARNormalCLEARKettering Health Troy HospitalComment on above: Performed By: #### BMP #### [facility] [address] [address] [address] Ibis JimenezColor (U)YELLOWNormalYELLOWKettering Health Troy HospitalComment on above: Performed By: #### BMP #### [facility] [address] [address] [address] Ibis Chang micrscopic examination will be performed if indicated. NormalThe Crescent HospitalComment on above:Performed By: #### BMP #### [facility] [address] [address] [address] Ibis JimenezGlucose Ql (U)NegativeNormalNEGATIVEKettering Health Troy HospitalComment on above:Performed By: #### BMP #### [facility] [address] [address] [address] Ibis JimenezHemoglobin Ql (U)TRACE-INTACTAbnormalNEGATIVEGood Samaritan HospitalComment on above:Performed By: #### BMP #### [facility] [address] [address] [address] Ibis JimenezKetones Ql (U)NegativeNormalNEGATIVEGood Samaritan HospitalComment on above:Performed By: #### BMP #### [facility] [address] [address] [address] Ibis JimenezLEUKOCYTESNegativeNormalNEGATIVEGood Samaritan HospitalComselect specialty hospital-[facility] on above:Performed By: #### BMP #### [facility] [address] [address] [address] Ibis JimenezNitrite Ql (U)NegativeNormalNEGATIVEGood Samaritan HospitalComment on above:Performed By: #### BMP #### [facility] [address] [address] [address] Ibis JimenezpH (U)5.5 [pH]Normal5-9Good Samaritan HospitalComment on above: Performed By: #### BMP #### [facility] [address] [address] [address] Ibis JimenezSPEC GRAVITY>=1.381Kqdqypyl6.005-<=1.025The [facility] Comment on above:Performed By: #### BMP #### [facility] [address] [address] [address] Ibis Quintanilla PROTEINNegativeNormalNEGATIVE/ TRACEThe [facility] Comment on above:Performed By: #### BMP #### [facility] [address] [address] [address] Ibis Curtis MICRO INDINDICATEDNormalThAdena Health SystemComment on above: Performed By: #### BMP #### [facility] [address] [place] [address] Dr. Ibis Lorenzbilinogen Qn (U)0.2 {Dinorah'U}/dLNormal0.2 - 1.0The [facility] HamiltonComment on above:Performed By: #### BMP #### [facility] [address] [address] [address] Ibis JimenzeLACTATE/LACTIC ACIDon 03-78-8565Tasvjjh [Moles/Vol]1.2 mmol/L Normal0.4-1.9Good Samaritan HospitalComment on above:Performed By: #### AMM #### [facility] [address] [place] [address] Dr. Ibis JimenezLactic Acidon 66-80-4604Lwkqnh Acid,Whole Bl0.9 mmol/LNormal 0.7-2.1Mer[facility].S. Naval HospitalComment on above:Performed By: #### TROPI, LACTIC, CMPX, CBC #### [facility] [place] [address] Order Booker: Tavon Nicole MDLactic Acid, Whole Blood0.9 mmol/L0.7 - 2.1 mmol/LBON [facility] [id number] (Bld) [#/Vol]NegativeNormalNEGATIVEThe [facility] HamiltonComment on above: Performed By: #### MONO #### [facility] [address] [address] [address] Ibis JimenezMRI BRAIN W WO CONTRASTon 27-78-8384EGN BRAIN W WO CONTRAST EXAMINATION: MRI OF [...] Signed by: Carlos Marks DO 10/19/21 Final resultNormalMercy U.S. Naval HospitalUnremarkable MR brain. [facility] RIS CONSOLIDATEDEXAMINATION: MRI OF THE BRAIN WITHOUT AND WITH [...] The soft tissues demonstrate no acute abnormality. [facility] Carlos Dumont DO - 10/19/2021 EXAMINATION: MRI OF THE [...] no acute abnormality. IMPRESSION: Unremarkable MR brain. [employer] Phone: radiology Study observation (narrative)[employer] Phone: MRI BRAIN W WO CONTRASTOrdered By: Carlos Marks on [id number] [employer] Phone: PH VENOUS BLOODon [id number] FSLGJS85.6 mmHg Critically low40.0-52.0The [facility] HamiltonComment on above:Performed By: #### BMP #### [facility] [address] [place] [address] Dr. Ibis JimenezpH VENOUS7.795Iaawaa0.330-7.430The [facility] HamiltonComment on above:Performed By: #### BMP #### [facility] [address] [place] [address] Dr. Ibis JimenezPROF CHEM 8 (BAS METB)on 72-02-2036Fhugp gap [Moles/Vol]11.9 mmol/LNormalThe [facility] HamiltonComment on above:Performed By: #### MONO #### [facility] [address] [place] [address] Dr. Ibis JimenezCalcium [Mass/Vol]9.1 mg/dLNormal8.5-10.1The [facility] Comment on above:Performed By: #### MONO #### [facility] [address] [place] [address] Dr. Ibis JimenezChloride [Moles/Vol]104 mmol/XIsedau03-798Ggl [facility] Comment on above:Performed By: #### MONO #### [facility] [address] [place] [address] Dr. Ibis JimenezCO2 [Moles/Vol]26.7 mmol/NIouqol13.0-32.0The [facility] Comment on above:Performed By: #### MONO #### [facility] [address] [place] [address] Dr. Ibis JimenezCreatinine [Mass/Vol]0.78 mg/dLNormal0.55-1.02The [facility] HamiltonComment on above:Performed By: #### MONO #### [facility] [address] [place] [address] Dr. Ibis RojasGFR-AF EGYPTIAN>60Normal>=60The [facility] HamiltonComment on above:Performed By: #### MONO #### [facility] [address] [place] [address] Dr. Ibis RojasGFR-NON AF EGYPTIAN>60Normal>=60[facility]aritan HospitalComment on above:Performed By: #### MONO #### [facility] [address] [address] [address] Ibis JimenezGlucose [Mass/Vol]96 mg/fVNjehcc68-352HuqGood Samaritan Hospital Comment on above:Performed By: #### MONO #### [facility] [address] [address] [address] Ibis JimenezPotassium [Moles/Vol]3.6 mmol/LNormal3.5-5.1[facility] Comment on above:Performed By: #### MONO #### [facility] [address] [address] [address] Ibis JimenezSodium [Moles/Vol]139 mmol/YJyqqte509-611Jyp [facility] Comment on above:Performed By: #### MONO #### [facility] [address] [address] [address] Ibis JimenezUrea nitrogen [Mass/Vol]14.0 mg/dLNormal7.0-18.0Good [facility]aritan HospitalComment on above:Performed By: #### MONO #### [facility] [address] [address] [address] Ibis Lama nitrogen/Creatinine [Mass ratio]17.9 mg/mgNormalThe [facility] HamiltonComment on above:Performed By: #### MONO #### [facility] [address] [address] [address] Ibis Wang 65-94-1075UGD2.389 uIU/mLNormal0.358-3.740Good Samaritan HospitalComment on above:Performed By: #### ACET, SALYC #### [facility] [address] [address] [address] Ibis Zacarias 95-15-1866Xrpsqhyk, High Sens<4Szmcmc4-59AfuymMercer County Community HospitalComment on above:Result Comment: High Sensitivity Troponin values cannot be compared with other Troponin methodologies. Patients with high levels of Biotin oral intake (i.e >5mg/day) may have falsely decreased Troponin levels. Samples collected within 8 hours of biotin intake may require additional information for diagnosis.Performed By: #### TROPI, LACTIC, CMPX, CBC #### [facility] [address] [place] [address] Order Booker: Geraldo Holden, High Sensitivityng/L0 - 14 ng/LBON [facility] on above: High Sensitivity Troponin values cannot be compared with other Troponin methodologies. Patients with high levels of Biotin oral intake (i.e >5mg/day) may have falsely decreased Troponin levels. Samples collected within 8 hours of biotin intake may require additional information for diagnosis. [facility]IL[facility]ATION HOSPITALURINE MICROSCOPIC ONLYon 13-27-7761VDAHTIVEWXORIZehtypps NONE SEENGood Samaritan HospitalComselect specialty hospital-[facility] on above:Performed By: #### BMP #### [facility] [address] [place] [address] Dr. Ibis Pettit identified Cx Nom (U)NOT INDICATEDNormalThAdena Health SystemComselect specialty hospital-[facility] on above:Performed By: #### BMP #### [facility] [address] [place] [address] Dr. Ibis Baron SEENNormalNONE [facility] on above:Performed By: #### BMP #### [facility] [address] [place] [address] Dr. Ibis Oviedo LM Nom (Urine sed)NONE SEENNormalNONE SEENGood Samaritan HospitalComselect specialty hospital-[facility] on above:Performed By: #### BMP #### [facility] [address] [place] [address] Dr. Ibis Rojaspithelial cells LM Ql (Urine sed)RARENormalNONE SEEN /RAREGrand [facility] Joint [facility] District [facility] Hospital on above:Performed By: #### BMP #### [facility] [address] [place] [address] Dr. Ibis GramajoGEAbnormalNONE SEENGrand Lake Joint Township District Memorial Hospital on above:Performed By: #### BMP #### [facility] [address] [place] [address] Dr. Ibis JimenezZlbvrVWF4-2Xzmgchoy0-0Cmh [facility] HamiltonComment on above:Performed By: #### BMP #### [facility] [address] [address] [address] Ibis JimenezWBC0-2AbnormalNONE SEENThe [facility] HamiltonComment on above: Performed By: #### BMP #### [facility] [address] [address] [address] Ibis JimenezCT ABD/PELVIS WO CONon [id number] ABD/PELVIS WO CONIndication: Pelvic pain status post hysterectomy. Comparison: 08/14/2021 [...] Electronically authenticated by: JASS LAURENT Date: 2021-10-06 20:08[facility] URINE PROFILEon 99-79-6512Mplqoouhy Ql (U)NegativeNormal NEGATIVEGood Samaritan HospitalComment on above:Performed By: #### MONO #### [facility] [address] [place] [address] Dr. Ibis Sage (U)CLEARNormalCLEARGood Samaritan HospitalComment on above: Performed By: #### MONO #### [facility] [address] [place] [address] Dr. Ibis Rivera (U)LT. YELLOWNormalYELLOWGood Samaritan HospitalComment on above:Performed By: #### MONO #### [facility] [address] [place] [address] Dr. Ibis Chang micrscopic examination will be performed if indicated. NormalGood Samaritan HospitalComselect specialty hospital-[facility] on above:Performed By: #### MONO #### [facility] [address] [place] [address] Dr. Ibis JimenezGlucose Ql (U)NegativeNormalNEGATIVEGood Samaritan HospitalComselect specialty hospital-[facility] on above:Performed By: #### MONO #### [facility] [address] [place] [address] Dr. Ibis JimenezHemoglobin Ql (U)NegativeNormalNEGATIVEElyria Memorial Hospital on above:Performed By: #### MONO #### [facility] [address] [place] [address] Dr. Ibis JimenezKetones Ql (U)NegativeNormalNEGATIVEGood Samaritan HospitalComment on above:Performed By: #### MONO #### [facility] [address] [place] [address] Dr. Ibis JimenezLEUKOCYTESNegativeNormalNEGATIVEGood Samaritan HospitalComselect specialty hospital-[facility] on above:Performed By: #### MONO #### [facility] [address] [place] [address] Dr. Ibis JimenezNitrite Ql (U)NegativeNormalNEGATIVEGood Samaritan HospitalComment on above:Performed By: #### MONO #### [facility] [address] [place] [address] Dr. Ibis JimenezpH (U)8.0 [pH]Normal5-9The [facility] HamiltonComment on above: Performed By: #### MONO #### [facility] [address] [place] [address] Dr. Ibis JimenezSPEC GRAVITY1.087Rmiqaq5.005-<=1.025The [facility] HamiltonComment on above:Performed By: #### MONO #### [facility] [address] [place] [address] Dr. Ibis Quintanilla PROTEINNegativeNormalNEGATIVE/ TRACEThe [facility] Comment on above:Performed By: #### MONO #### [facility] [address] [place] [address] Dr. Ibis Curtis MICRO INDNOT INDICATEDNormalThe [facility] HamiltonComment on above:Performed By: #### MONO #### [facility] [address] [place] [address] Dr. Ibis JimenezUrobilinogen Qn (U)0.2 {Dinorah'U}/dLNormal0.2 - 1.0[facility] HospitalComment on above:Performed By: #### MONO #### [facility] [address] [place] [address] Dr. Ibis Drake URINE PROFILEon [id number] Ql (U)NegativeNormal NEGATIVEGood Samaritan HospitalComment on above:Performed By: #### CVDTBH #### [facility] [address] [place] [address] Dr. Ibis Pratherarity (U)CLEARNormalCLEARThe [facility] HamiltonComment on above: Performed By: #### CVDTBH #### [facility] [address] [place] [address] Dr. Ibis Rivera (U)YELLOWNormalYELLOWGood Samaritan HospitalComment on above: Performed By: #### CVDTBH #### [facility] [address] [place] [address] Dr. Ibis Chang micrscopic examination will be performed if indicated. NormalThe [facility] HamiltonComment on above:Performed By: #### CVDTBH #### [facility] [address] [address] [address] Ibis JimenezGlucose Ql (U)NegativeNormalNEGATIVEGood Samaritan HospitalComment on above:Performed By: #### CVDTBH #### [facility] [address] [address] [address] Ibis JimenezHemoglobin Ql (U)NegativeNormalNEGATIVEGood Samaritan Hospital Comment on above:Performed By: #### CVDTBH #### [facility] [address] [place] [address] Dr. Ibis JimenezKetones Ql (U)NegativeNormalNEGATIVEGood Samaritan HospitalComment on above:Performed By: #### CVDTBH #### [facility] [address] [place] [address] Dr. Ibis JimenezLEUKOCYTESNegativeNormalNEGATIVEGood Samaritan HospitalComment on above:Performed By: #### CVDTBH #### [facility] [address] [place] [address] Dr. Ibis JimenezNitrite Ql (U)NegativeNormalNEGATIVEGood Samaritan HospitalComment on above:Performed By: #### CVDTBH #### [facility] [address] [place] [address] Dr. Ibis JimenezpH (U)6.0 [pH]Normal5-9[facility]aritan HospitalComment on above: Performed By: #### CVDTBH #### [facility] [address] [place] [address] Dr. Ibis JimenezSPEC GRAVITY1.732Venchk8.005-<=1.025The [facility] HamiltonComment on above:Performed By: #### CVDTBH #### [facility] [address] [place] [address] Dr. Ibis Quintanilla PROTEINNegativermalNEGATIVE/ TRACEGood Samaritan Hospital Comment on above:Performed By: #### CVDTBH #### [facility] [address] [place] [address] Dr. Ibis Curtis MICRO INDNOT INDICATEDPremier Health Upper Valley Medical CenterComment on above:Performed By: #### CVDTBH #### [facility] [address] [place] [address] Dr. Ibis Ray Qn (U)0.2 {Dinorah'U}/dLNormal0.2 - 1.0The [facility] HamiltonComment on above:Performed By: #### CVDTBH #### [facility] [address] [place] [address] Dr. Ibis Alexis AUTO DIFFon [id number] #0.0 103/ulNormal0.0-0.1The [facility] HamiltonComment on above:Performed By: #### BMP #### [facility] [address] [place] [address] Dr. Ibis JimenezBasophils/100 WBC (Bld)0.3 %Normal0.2-2.0[facility] Comment on above:Performed By: #### BMP #### [facility] [address] [place] [address] Dr. Ibis Acevedo #0.3 103/ulNormal0.0-0.7The [facility] HamiltonComment on above: Performed By: #### BMP #### [facility] [address] [place] [address] Dr. Ibis Rojasosinophils/100 WBC (Bld)4.1 %Normal0.9-7.0The [facility] Comment on above:Performed By: #### BMP #### [facility] [address] [place] [address] Dr. Ibis Rojasrythrocyte distribution width (RBC) [Ratio]13.2 %Oayubz29.0-15.0 [facility] HospitalComment on above:Performed By: #### BMP #### [facility] [address] [place] [address] Dr. Ibis JimenezHematocrit (Bld) [Volume fraction]35.7 %Critically low36.0-48.0 The [facility] HamiltonComment on above:Performed By: #### BMP #### [facility] [address] [address] [address] Ibis JimenezHemoglobin (Bld) [Mass/Vol]11.6 g/dLCritically low12.0-16.0The [facility] HamiltonComment on above:Performed By: #### BMP #### [facility] [address] [place] [address] Dr. Ibis Soto #0.02 10e3/ulNormal0.00-0.03The [facility] HamiltonComment on above:Performed By: #### BMP #### [facility] [address] [place] [address] Dr. Ibis Soto %0.3 %Normal0.0-0.5The [facility] HamiltonComment on above: Performed By: #### BMP #### [facility] [address] [place] [address] Dr. Ibis Brenner #1.5 103/ulNormal1.2-3.8The [facility] HamiltonComment on above:Performed By: #### BMP #### [facility] [address] [place] [address] Dr. Ibis Brennerhocytes/100 WBC (Bld)24.3 %Xchzfw92.5-60.0The [facility] HamiltonComment on above:Performed By: #### BMP #### [facility] [address] [place] [address] Dr. Ibis NewtonUAL DIFF REQNONormalThe [facility] HamiltonComment on above: Performed By: #### BMP #### [facility] [address] [place] [address] Dr. Ibis JimenezMEDISYS HEALTH NETWORK (RBC) [Entitic mass]28.9 dgFsjczj73.7-34.0The [facility] HamiltonComment on above:Performed By: #### BMP #### [facility] [address] [place] [address] Dr. Ibis Frank (RBC) [Mass/Vol]32.5 g/bYQpslde09.9-35.2The [facility] HamiltonComment on above:Performed By: #### BMP #### [facility] [address] [address] [address] Ibis FrankV (RBC) [Entitic vol]89.0 uJIixwgb72.0-99.0The [facility] HamiltonComment on above:Performed By: #### BMP #### [facility] [address] [place] [address] Dr. Ibis Magallanes #0.5 103/ulNormal0.3-0.8The [facility] HamiltonComment on above:Performed By: #### BMP #### [facility] [address] [place] [address] Dr. Ibis Barbaocytes/100 WBC (Bld)7.3 %Normal1.7-12.0The [facility] Comment on above:Performed By: #### BMP #### [facility] [address] [place] [address] Dr. Ibis Schultz #4.0 103/ulNormal1.4-6.5The [facility] HamiltonComment on above:Performed By: #### BMP #### [facility] [address] [place] [address] Dr. Ibis Hiutrophils/100 WBC (Bld)63.7 %Vdhsis89.0-75.0The [facility] HamiltonComment on above:Performed By: #### BMP #### [facility] [address] [place] [address] Dr. Ibis Olsenlet mean volume (Bld) [Entitic vol]9.7 fLNormal9.5-13.5The [facility] HamiltonComment on above:Performed By: #### BMP #### [facility] [address] [place] [address] Dr. Ibis JimenezPLT237 103/ltTlwzqw069-718Xol [facility] HamiltonComment on above: Performed By: #### BMP #### [facility] [address] [place] [address] Dr. Ibis JimenezRBC4.01 106/ulCritically low4.20-5.40The [facility] HamiltonComment on above:Performed By: #### BMP #### [facility] [address] [place] [address] Dr. Ibis JimenezWBC6.3 103/ulNormal4.0-11.0The [facility] HamiltonComment on above: Performed By: #### BMP #### [facility] [address] [place] [address] Dr. Ibis JimenezLACTATE/LACTIC ACIDon [id number] [Moles/Vol]1.2 mmol/L Normal0.4-1.9The [facility] HamiltonComment on above:Performed By: #### AMM #### [facility] [address] [place] [address] Dr. Ibis Lin [id number] nitrogen [Mass/Vol]7.0 mg/dLNormal7.0-18.0 The [facility] HamiltonComment on above:Performed By: #### CVDTBH #### [facility] [address] [place] [address] Dr. Ibis GonzalesC AUTO DIFFon [id number] #0.0 103/ulNormal0.0-0.1The [facility] HamiltonComment on above:Performed By: #### AMM #### [facility] [address] [place] [address] Dr. Ibis JimenezBasophils/100 WBC (Bld)0.2 %Normal0.2-2.0The [facility] Comment on above:Performed By: #### AMM #### [facility] [address] [place] [address] Dr. Ibis Acevedo #0.0 103/ulNormal0.0-0.7The [facility] HamiltonComment on above: Performed By: #### AMM #### [facility] [address] [place] [address] Dr. Ibis Rojasosinophils/100 WBC (Bld)0.3 %Critically low0.9-7.0The [facility] HamiltonComment on above:Performed By: #### AMM #### [facility] [address] [place] [address] Dr. Ibis Rojasrythrocyte distribution width (RBC) [Ratio]12.7 %Txuecu18.0-15.0 The [facility] HamiltonComment on above:Performed By: #### AMM #### [facility] [address] [place] [address] Dr. Ibis JimenezHematocrit (Bld) [Volume fraction]43.4 %Hcghqv89.0-48.0The [facility] HamiltonComment on above:Performed By: #### AMM #### [facility] [address] [place] [address] Dr. Ibis JimenezHemoglobin (Bld) [Mass/Vol]14.6 g/nXVszmtz17.0-16.0The [facility] HamiltonComment on above:Performed By: #### AMM #### [facility] [address] [place] [address] Dr. Ibis Soto #0.03 10e3/ulNormal0.00-0.03The [facility]Com[facility] on above:Performed By: #### AMM #### [facility] [address] [place] [address] Dr. Ibis Soto %0.3 %Normal0.0-0.5The [facility]Com[facility] on above: Performed By: #### AMM #### [facility] [address] [place] [address] Dr. Ibis BrennerH #1.2 103/ulNormal1.2-3.8The [facility]Com[facility] on above:Performed By: #### AMM #### [facility] [address] [place] [address] Dr. Ibis Vuongmphocytes/100 WBC (Bld)11.6 %Critically low20.5-60.0The [facility] on above:Performed By: #### AMM #### [facility] [address] [place] [address] Dr. Ibis NewtonUAL DIFF REQNONormalThe [facility] HamiltonComment on above: Performed By: #### AMM #### [facility] [address] [address] [address] Ibis Frank (RBC) [Entitic mass]28.5 iwArhgbx98.7-34.0The [facility] HamiltonComment on above:Performed By: #### AMM #### [facility] [address] [place] [address] Dr. Ibis Frank (RBC) [Mass/Vol]33.6 g/oSJjhllw93.9-35.2The [facility] HamiltonComment on above:Performed By: #### AMM #### [facility] [address] [place] [address] Dr. Ibis FrankV (RBC) [Entitic vol]84.6 vCTbrojz55.0-99.0The [facility] HamiltonComment on above:Performed By: #### AMM #### [facility] [address] [place] [address] Dr. Ibis Magallanes #0.6 103/ulNormal0.3-0.8The [facility] HamiltonComment on above:Performed By: #### AMM #### [facility] [address] [place] [address] Dr. Ibis Barbaocytes/100 WBC (Bld)5.9 %Normal1.7-12.0The [facility] Comment on above:Performed By: #### AMM #### [facility] [address] [place] [address] Dr. Ibis Schultz #8.2 103/ulCritically high1.4-6.5The [facility] Comment on above:Performed By: #### AMM #### [facility] [address] [place] [address] Dr. Ibis Hiutrophils/100 WBC (Bld)81.7 %Critically high43.0-75.0The [facility] HamiltonComment on above:Performed By: #### AMM #### [facility] [address] [place] [address] Dr. Ibis Olsenlet mean volume (Bld) [Entitic vol]9.8 fLNormal9.5-13.5The [facility] on above:Performed By: #### AMM #### [facility] [address] [place] [address] Dr. Ibis JimenezPLT264 103/syPnenvv462-982Dmy [facility]Com[facility] on above: Performed By: #### AMM #### [facility] [address] [place] [address] Dr. Ibis JimenezRBC5.13 106/ulNormal4.20-5.40The [facility] HamiltonComment on above:Performed By: #### AMM #### [facility] [address] [place] [address] Dr. Ibis HamiltonBC10.1 103/ulNormal4.0-11.0The [facility]ment on above:Performed By: #### AMM #### [facility] [address] [place] [address] Dr. Ibis JimenezCREATININEon [id number] [Mass/Vol]0.69 mg/dLNormal 0.55-1.02The [facility] HamiltonComment on above:Performed By: #### CVDTBH #### [facility] [address] [place] [address] Dr. Ibis RojasGFR-AF EGYPTIAN>60Normal>=60The [facility]Com[facility] on above:Performed By: #### CVDTBH #### [facility] [address] [place] [address] Dr. Ibis RojasGFR-NON AF EGYPTIAN>60Normal>=60The [facility] Daytonment on above:Performed By: #### CVDTBH #### [facility] [address] [place] [address] Dr. Ibis GonzalesC AUTO DIFFon [id number] #0.0 103/ulNormal0.0-0.1The [facility] on above:Performed By: #### AMM #### [facility] [address] [place] [address] Dr. Ibis JimenezBasophils/100 WBC (Bld)0.3 %Normal0.2-2.0The [facility] Comment on above:Performed By: #### AMM #### [facility] [address] [place] [address] Dr. Ibis Acevedo #0.1 103/ulNormal0.0-0.7The [facility] HamiltonComment on above: Performed By: #### AMM #### [facility] [address] [place] [address] Dr. Ibis Rojasosinophils/100 WBC (Bld)1.9 %Normal0.9-7.0The [facility] Comment on above:Performed By: #### AMM #### [facility] [address] [place] [address] Dr. Ibis Rojasrythrocyte distribution width (RBC) [Ratio]12.7 %Yaprel64.0-15.0 The [facility] HamiltonComment on above:Performed By: #### AMM #### [facility] [address] [place] [address] Dr. Ibis JimenezHematocrit (Bld) [Volume fraction]38.1 %Wirsgl92.0-48.0The [facility] HamiltonComment on above:Performed By: #### AMM #### [facility] [address] [place] [address] Dr. Ibis JimenezHemoglobin (Bld) [Mass/Vol]12.7 g/eDFynvzz71.0-16.0The [facility] HamiltonComment on above:Performed By: #### AMM #### [facility] [address] [place] [address] Dr. Ibis Soto #0.02 10e3/ulNormal0.00-0.03The [facility]Comment on above:Performed By: #### AMM #### [facility] [address] [place] [address] Dr. Ibis Soto %0.3 %Normal0.0-0.5The [facility]Comment on above: Performed By: #### AMM #### [facility] [address] [place] [address] Dr. Ibis Monsalve #1.9 103/ulNormal1.2-3.8The [facility] HamiltonComment on above:Performed By: #### AMM #### [facility] [address] [place] [address] Dr. Ibis Vuongmphocytes/100 WBC (Bld)30.5 %Pkrsyz50.5-60.0The [facility] HamiltonComment on above:Performed By: #### AMM #### [facility] [address] [place] [address] Dr. Ibis NewtonUAL DIFF REQNONormalThe [facility] HamiltonComment on above: Performed By: #### AMM #### [facility] [address] [place] [address] Dr. Ibis Frank (RBC) [Entitic mass]28.3 cuXzxqui95.7-34.0The [facility] HamiltonComment on above:Performed By: #### AMM #### [facility] [address] [place] [address] Dr. Ibis Frank (RBC) [Mass/Vol]33.3 g/yLHcexhc65.9-35.2The [facility] on above:Performed By: #### AMM #### [facility] [address] [place] [address] Dr. Ibis Frank (RBC) [Entitic vol]85.0 kHTjetmw69.0-99.0The [facility] HamiltonComment on above:Performed By: #### AMM #### [facility] [address] [place] [address] Dr. Ibis Magallanes #0.3 103/ulNormal0.3-0.8The [facility] HamiltonComment on above:Performed By: #### AMM #### [facility] [address] [place] [address] Dr. Ibis Barbaocytes/100 WBC (Bld)5.2 %Normal1.7-12.0The [facility] Comment on above:Performed By: #### AMM #### [facility] [address] [place] [address] Dr. Ibis Schultz #3.9 103/ulNormal1.4-6.5The [facility] HamiltonComment on above:Performed By: #### AMM #### [facility] [address] [place] [address] Dr. Ibis Hiutrophils/100 WBC (Bld)61.8 %Zvcqfs29.0-75.0The [facility] HamiltonComment on above:Performed By: #### AMM #### [facility] [address] [place] [address] Dr. Ibis JimenezPlatelet mean volume (Bld) [Entitic vol]9.7 fLNormal9.5-13.5The [facility] HamiltonComment on above:Performed By: #### AMM #### [facility] [address] [place] [address] Dr. Ibis JimenezPLT255 103/wuSecocs832-854Uup [facility] HamiltonComment on above: Performed By: #### AMM #### [facility] [address] [place] [address] Dr. Ibis JimenezRBC4.48 106/ulNormal4.20-5.40The [facility] on above:Performed By: #### AMM #### [facility] [address] [place] [address] Dr. Ibis JimenezWBC6.3 103/ulNormal4.0-11.0The [facility]Com[facility] on above: Performed By: #### AMM #### [facility] [address] [place] [address] Dr. Ibis JimenezPREG HCG QUALon [id number], QUALNegativeNormalNEGATIVE The [facility] HamiltonComment on above:Performed By: #### MONO #### [facility] [address] [place] [address] Dr. Ibis JimenezCovid-19 PCR (CVDTBH)on [id number]-CoV-2 (COVID-19) RNA SAURABH+probe Ql (Unsp spec)Not detectedNormalNOT DETECTEDThe [facility] Comment on above:Result Comment: This test is not yet approved or cleared by the [place] FDA. When there are no FDA-approved or cleared tests available, and other criteria are met, FDA can make tests available under an emergency access mechanism called an Emergency Use Authorization (EUA). The EUA for this test is supported by the [place] of Health and Human Service's (HHS's) declaration that circumstances exist to justify the emergency use of in vitro diagnostics for the detection and/or diagnosis of the virus that causes COVID- 19. This EUA will remain in effect (meaning [...] of clinical signs and symptoms consistent with SARS-CoV-2.Performed By: #### BMP #### [facility] [address] [address] [address] Ibis JimenezTYPE AND SCREENon [id number] AND SCREENNegativeNormalThe [facility] HamiltonComment on above:Performed By: #### BMP #### [facility] [address] [address] [address] Ibis JimenezCovid-19 PCR ([facility])on [id number]-CoV-2 (COVID-19) RNA SAURABH+probe Ql (Unsp spec)Not detectedNormalNOT DETECTEDThe [facility] Comment on above:Result Comment: This test is not yet approved or cleared by the [place] FDA. When there are no FDA-approved or cleared tests available, and other criteria are met, FDA can make tests available under an emergency access mechanism called an Emergency Use Authorization (EUA). The EUA for this test is supported by the [place] of Health and Human Service's (HHS's) declaration that circumstances exist to justify the emergency use of in vitro diagnostics for the detection and/or diagnosis of the virus that causes COVID- 19. This EUA will remain in effect (meaning [...] of clinical signs and symptoms consistent with SARS-CoV-2.Performed By: #### CVDTBH #### [facility] [address] [place] [address] Dr. Ibis JimenezTYPE AND SCREENon [id number] AND SCREENNegativeNormalThe [facility] HamiltonComment on above:Performed By: #### BMP #### [facility] [address] [place] [address] Dr. Ibis JimenezCHLAMYDIA/GONOCOCCUS SAURABH (SWAB/URINE/PAPon [id number] trachomatis, NAANegativeNormalNegativeThe [facility] HamiltonComment on above: Performed By: #### ACET, SALYC #### [facility] [address] [place] [address] Dr. Ibis JimenezNeisseria gonorrhoeae, NAANegativeNormalNegativeThe [facility] HamiltonComment on above:Performed By: #### ACET, SALYC #### [facility] [address] [place] [address] Dr. Ibis Alexis AUTO DIFFon [id number] #0.0 103/ulNormal0.0-0.1The [facility] HamiltonComment on above:Performed By: #### CVDTBH #### [facility] [address] [place] [address] Dr. Ibis JimenezBasophils/100 WBC (Bld)0.3 %Normal0.2-2.0The [facility] Comment on above:Performed By: #### CVDTBH #### [facility] [address] [place] [address] Dr. Baumann ChangEO #0.2 103/ulNormal0.0-0.7The [facility] HamiltonComment on above: Performed By: #### CVDTBH #### [facility] [address] [place] [address] Dr. Ibis Rojasosinophils/100 WBC (Bld)2.5 %Normal0.9-7.0The [facility] Comment on above:Performed By: #### CVDTBH #### [facility] [address] [place] [address] Dr. Ibis Rojasrythrocyte distribution width (RBC) [Ratio]13.0 %Xdgafs77.0-15.0 The [facility] HamiltonComment on above:Performed By: #### CVDTBH #### [facility] [address] [place] [address] Dr. Ibis JimenezHematocrit (Bld) [Volume fraction]38.1 %Rnmmtu89.0-48.0The [facility] HamiltonComment on above:Performed By: #### CVDTBH #### [facility] [address] [place] [address] Dr. Ibis JimenezHemoglobin (Bld) [Mass/Vol]12.8 g/xFKsnbse39.0-16.0The [facility] HamiltonComment on above:Performed By: #### CVDTBH #### [facility] [address] [place] [address] Dr. Ibis Soto #0.02 10e3/ulNormal0.00-0.03The [facility] HamiltonComment on above:Performed By: #### CVDTBH #### [facility] [address] [place] [address] Dr. Ibis Soto %0.3 %Normal0.0-0.5The [facility] HamiltonComment on above: Performed By: #### CVDTBH #### [facility] [address] [place] [address] Dr. Ibis BrennerH #1.5 103/ulNormal1.2-3.8The [facility] HamiltonComment on above:Performed By: #### CVDTBH #### [facility] [address] [place] [address] Dr. Ibis Vuongmphocytes/100 WBC (Bld)22.5 %Wfpcqf45.5-60.0The [facility] HamiltonComment on above:Performed By: #### CVDTBH #### [facility] [address] [place] [address] Dr. Ibis Viera DIFF REQNONormalThe [facility] HamiltonComment on above: Performed By: #### CVDTBH #### [facility] [address] [place] [address] Dr. Ibis Frank (RBC) [Entitic mass]28.6 xcPrktwc46.7-34.0The [facility] HamiltonComment on above:Performed By: #### CVDTBH #### [facility] [address] [place] [address] Dr. Ibis Frank (RBC) [Mass/Vol]33.6 g/pHAolnlw21.9-35.2The [facility] HamiltonComment on above:Performed By: #### CVDTBH #### [facility] [address] [place] [address] Dr. Ibis Dan (RBC) [Entitic vol]85.0 dGMoeder78.0-99.0The [facility] HamiltonComment on above:Performed By: #### CVDTBH #### [facility] [address] [place] [address] Dr. Ibis Magallanes #0.4 103/ulNormal0.3-0.8The [facility] HamiltonComment on above:Performed By: #### CVDTBH #### [facility] [address] [place] [address] Dr. Ibis Barbaocytes/100 WBC (Bld)6.3 %Normal1.7-12.0The [facility] Comment on above:Performed By: #### CVDTBH #### [facility] [address] [place] [address] Dr. Ibis Schultz #4.6 103/ulNormal1.4-6.5The [facility] HamiltonComment on above:Performed By: #### CVDTBH #### [facility] [address] [place] [address] Dr. Ibis Hiutrophils/100 WBC (Bld)68.1 %Iauhvp24.0-75.0The [facility] Daytonment on above:Performed By: #### CVDTBH #### [facility] [address] [place] [address] Dr. Ibis JimenezPlatelet mean volume (Bld) [Entitic vol]9.8 fLNormal9.5-13.5The [facility] HamiltonComment on above:Performed By: #### CVDTBH #### [facility] [address] [place] [address] Dr. Ibis JimenezPLT243 103/xzSszluc510-603Wld [facility] on above: Performed By: #### CVDTBH #### [facility] [address] [place] [address] Dr. Ibis JimenezRBC4.48 106/ulNormal4.20-5.40The [facility] on above:Performed By: #### CVDTBH #### [facility] [address] [place] [address] Dr. Ibis JimenezWBC6.7 103/ulNormal4.0-11.0The [facility] on above: Performed By: #### CVDTBH #### [facility] [address] [place] [address] Dr. Ibis JimenezCT ABD/PELVIS [id number] ABD/PELVIS WO CONTECHNIQUE: CT abdomen and pelvis. Helically acquired axial [...] Electronically authenticated by: NELI COTTO Date: 2021-08-14 18:00[facility] URINE PROFILEon [id number] Ql (U)SMALLAbnormal NEGATIVEGood Samaritan HospitalComment on above:Performed By: #### BMP #### [facility] [address] [place] [address] Dr. Ibis Sage (U)CLEARNormalCLEARGood Samaritan HospitalComment on above: Performed By: #### BMP #### [facility] [address] [place] [address] Dr. Ibis Rivera (U)YELLOWNormalYELLOWGood Samaritan HospitalComment on above: Performed By: #### BMP #### [facility] [address] [place] [address] Dr. Ibis Chang micrscopic examination will be performed if indicated. NormalGood Samaritan HospitalComment on above:Performed By: #### BMP #### [facility] [address] [place] [address] Dr. Ibis JimenezGlucose Ql (U)NegativeNormalNEGATIVEGood Samaritan HospitalComment on above:Performed By: #### BMP #### [facility] [address] [place] [address] Dr. Ibis JimenezHemoglobin Ql (U)SMALLAbnormalNEGATIVEGood Samaritan Hospital Comment on above:Performed By: #### BMP #### [facility] [address] [address] [address] Ibis Baumann Ql (U)TRACEAbnormalNEGATIVEThe Crescent HospitalComment on above:Performed By: #### BMP #### [facility] [address] [place] [address] Dr. Ibis JimenezLEUKOCYTESNegativeNormalNEGATIVEThe Crescent HospitalComment on above:Performed By: #### BMP #### [facility] [address] [address] [address] Ibis Avalostrite Ql (U)NegativeNormalNEGATIVEThe Crescent HospitalComment on above:Performed By: #### BMP #### [facility] [address] [place] [address] Dr. Ibis JimenezpH (U)5.5 [pH]Normal5-9The [facility] HamiltonComment on above: Performed By: #### BMP #### [facility] [address] [place] [address] Dr. Ibis JimenezSPEC GRAVITY>=1.215Vjeioefm5.005-<=1.025The [facility] on above:Performed By: #### BMP #### [facility] [address] [place] [address] Dr. Ibis Quintanilla PROTEINTRACENormalNEGATIVE/ TRACEThe [facility] HamiltonComment on above:Performed By: #### BMP #### [facility] [address] [place] [address] Dr. Ibis Curtis MICRO INDINDICATEDNormalThe Crescent HospitalComment on above: Performed By: #### BMP #### [facility] [address] [place] [address] Dr. Ibis Lorenzbilinogen Qn (U)1.0 {Dinorah'U}/dLNormal0.2 - 1.0The [facility] HamiltonComment on above:Performed By: #### BMP #### [facility] [address] [place] [address] Dr. Ibis JimenezPREGNANCY URon [id number], QUALNegativeNormalNEGATIVEThe [facility] HamiltonComment on above:Performed By: #### BMP #### [facility] [address] [address] [address] Ibis ChristinaF CHEM 8 (BAS METB)on [id number] gap [Moles/Vol]15.3 mmol/LNormalThe [facility] HamiltonComment on above:Performed By: #### BMP #### [facility] [address] [place] [address] Dr. Ibis JimenezCalcium [Mass/Vol]8.4 mg/dLCritically low8.5-10.1The [facility] HamiltonComment on above:Performed By: #### BMP #### [facility] [address] [place] [address] Dr. Ibis JimenezChloride [Moles/Vol]106 mmol/HGmkniv93-580Rgo [facility] Comment on above:Performed By: #### BMP #### [facility] [address] [place] [address] Dr. Ibis JimenezCO2 [Moles/Vol]22.3 mmol/FUdofsu98.0-32.0The [facility] Comment on above:Performed By: #### BMP #### [facility] [address] [place] [address] Dr. Ibis JimenezCreatinine [Mass/Vol]0.75 mg/dLNormal0.55-1.02The [facility] HamiltonComment on above:Performed By: #### BMP #### [facility] [address] [place] [address] Dr. Ibis RojasGFR-AF EGYPTIAN>60Normal>=60The [facility] HamiltonComment on above:Performed By: #### BMP #### [facility] [address] [place] [address] Dr. Ibis RojasGFR-NON AF EGYPTIAN>60Normal>=60The [facility] HamiltonComment on above:Performed By: #### BMP #### [facility] [address] [place] [address] Dr. Ibis JimenezGlucose [Mass/Vol]107 mg/dLCritically ryeq74-250Uys [facility] HamiltonComment on above:Performed By: #### BMP #### [facility] [address] [address] [address] Ibis JimenezPotassium [Moles/Vol]3.6 mmol/LNormal3.5-5.1[facility] Comment on above:Performed By: #### BMP #### [facility] [address] [address] [address] Ibis Potterdium [Moles/Vol]140 mmol/GLsbzee269-012Gek [facility] Comment on above:Performed By: #### BMP #### [facility] [address] [address] [address] Ibis JimenezUrea nitrogen [Mass/Vol]13.0 mg/dLNormal7.0-18.0Good Samaritan HospitalComment on above:Performed By: #### BMP #### [facility] [address] [address] [address] Ibis Lama nitrogen/Creatinine [Mass ratio]17.3 mg/mgNoMcKitrick HospitalComment on above:Performed By: #### BMP #### [facility] [address] [place] [address] Dr. Ibis CAINon [id number]R SEEN [facility] HospitalComselect specialty hospital-[facility] on above:Performed By: #### BMP #### [facility] [address] [address] [address] Ibis Pettit identified Cx Nom (U)NOT INDICATEDNoMcKitrick HospitalComselect specialty hospital-[facility] on above:Performed By: #### BMP #### [facility] [address] [address] [address] Ibis Baron SEENNormalNONE SEENGood Samaritan HospitalComselect specialty hospital-[facility] on above:Performed By: #### BMP #### [facility] [address] [address] [address] Ibis Oviedo LM Nom (Urine sed)NONE SEENNormalNONE SEENGood Samaritan HospitalComselect specialty hospital-[facility] on above:Performed By: #### BMP #### [facility] [address] [address] [address] Baumann ChangEpithelial cells LM Ql (Urine sed)MANYAbnormalNONE SEEN /RAREThe [facility]Comselect [facility] on above:Performed By: #### BMP #### [facility] [address] [address] [address] Ibis GallegosCOUSSMALLAbnormalNONE SEENThe [facility]Comselect [facility] on above:Performed By: #### BMP #### [facility] [address] [address] [address] Ibis JimenezKrydsRJF3-2Jjsoucjv1-5Asz [facility]Comselect [facility] on above:Performed By: #### BMP #### [facility] [address] [address] [address] Ibis JimenezWBC2-5AbnormalNONE SEENThe [facility] on above: Performed By: #### BMP #### [facility] [address] [address] [address] [facility] Auto DifferentialOrdered By: Keven Ching on 12-24-2020 Absolute Eos #0.44[facility] Phone: absolute Immature Granulocyte0.05[facility] Phone: absolute Lymph #2.48[facility] Phone: absolute [place] #0.55[facility] Phone: basophils (Bld) [#/Vol]10*3/uLRegency Hospital [facility] EastYurpy Phone: basophils/100 WBC (Bld)0 %0 - 2 %[employer] Phone: differential TypeNOT REPORTEDRegency Hospital Cleveland EastYurpy Phone: eosinophils/100 WBC (Bld)5 %High1 - 4 %[employer] Phone: Hematocrit (Bld) [Volume fraction]37.4 %36.3 - 47.1 % [employer] Phone: Hemoglobin.gastrointestinal spec 1 Ql (Stl)12.3 g/dL 11.9 - 15.1 g/dLRegency Hospital Cleveland EastYurpy Phone: Immature granulocytes/100 WBC (Bld)1 %[employer] Phone: Interpretation and review of laboratory results AbnormalRegency Hospital Cleveland EastYurpy Phone: Lymphocytes/100 WBC (Bld)30 %24 - 43 %[employer] Phone: MCH (RBC) [Entitic mass]28.5 pg25.2 - 33.5 pgRegency Hospital Cleveland EastYurpy Phone: MCHC (RBC) [Mass/Vol]32.9 g/dL28.4 - 34.8 g/dLRegency Hospital Cleveland EastYurpy Phone: MCV (RBC) [Entitic vol]86.8 fL82.6 - 102.9 fLRegency Hospital Cleveland EastYurpy Phone: Monocytes/100 WBC (Bld)7 %3 - 12 %[employer] Phone: NRBC Automated0.00.0 per 100 WBCRegency Hospital Cleveland EastYurpy Phone: platelet distribution width (Bld) [Ratio]12.7 %11.8 - 14.4 %[employer] Phone: Mlatelet EstimateNOT REPORTEDRegency Hospital Cleveland EastYurpy Phone: Platelet mean volume (Bld) [Entitic vol]9.4 fL8.1 - 13.5 fLRegency Hospital Cleveland EastYurpy Phone: Platelets (Bld) [#/Vol]252 10*3/uLRegency Hospital Cleveland EastYurpy Phone: RBC (Bld) [#/Vol]4.31 10*6/uL3.95 - 5.11 m/[employer] Phone: RBC (Bld) [#/Vol]NOT REPORTEDFlower Hospital [employer] Work Phone: segmented neutrophils/100 WBC (Bld)57 %36 - 65 %[facility] [employer] Work Phone: segs Absolute4.78[facility] [employer] Work Phone: WBC (Bld) [#/Vol]8.3 10*3/uLFlower Hospital [employer] Work Phone: WBC (Bld) [#/Vol]NOT REPORTEDFlower Hospital [employer] Work Phone: [facility] [employer] Work Phone: cBC with Diffon [id number]. Basophil<0.03Normal 0.00-0.20MerWVUMedicine Barnesville Hospital HospitalComment on above:Performed By: #### CMPX, CDP #### [address] [place], [facility] Order Booker: Wendy Elder.Imm.Granulocyte0.05 k/uLNormal0.00-0.30[facility] HospitalComment on above:Performed By: #### CMPX, CDP #### [address] [place] [address] Order Booker: Wendy Elder.Neutrophil (Seg)4.78 k/uLNormal1.50-8.10[facility] HospitalComment on above:Performed By: #### CMPX, CDP #### [address] [place], [place] [id number] Order Booker: Souleymane Pineda MDBasophils/100 WBC (Bld)0 %Normal0-2Mer[facility] HospitalComment on above:Performed By: #### CMPX, CDP #### [address] [place], [place] [id number] Order Booker: Souleymane Pineda MDEosinophils (Bld) [#/Vol]0.44 10*3/uLNormal 0.00-0.44[facility] HospitalComment on above:Performed By: #### CMPX, CDP #### [address] [place] [address] Order Booker: Souleymane Pineda MDEosinophils/100 WBC (Bld)5 %High1-4[facility] HospitalComment on above:Performed By: #### CMPX, CDP #### [address] [place] [address] Order Booker: Souleymane Pineda MDErythrocyte distribution width (RBC) [Ratio]12.7 % Drioxe64.8-14.4[facility] HospitalComment on above:Performed By: #### CMPX, CDP #### [address] [place] [address] Order Booker: Souleymane Pineda MDHematocrit (Bld) [Volume fraction]37.4 %Normal 36.3-47.1[facility]aria HospitalComment on above:Performed By: #### CMPX, CDP #### [address] [place] [id number] Order Booker: Souleymane Pineda MDHemoglobin (Bld) [Mass/Vol]12.3 g/dLNormal 11.9-15.1MCoshocton Regional Medical Center HospitalComment on above:Performed By: #### CMPX, CDP #### [address] [place] [address] Order Booker: Souleymane Pineda MDImmature granulocytes/100 WBC (Bld)1 %Dvpz1CqwkzCommunity Memorial Hospital HospitalComment on above:Performed By: #### CMPX, CDP #### [address] [place] [address] Order Booker: Souleymane Pineda MDLymphocytes (Bld) [#/Vol]2.48 10*3/uLNormal 1.10-3.70[facility] HospitalComment on above:Performed By: #### CMPX, CDP #### [address] [place], [place] [id number] Order Booker: Souleymane Pineda MDLymphocytes/100 WBC (Bld)30 %Wbcadq09-04DqkhbWestern Reserve HospitalComment on above:Performed By: #### CMPX, CDP #### [address] [place] [address] Order Booker: JUNAID ElderCH (RBC) [Entitic mass]28.5 wxPtdamy66.2-33.5 [facility] HospitalComment on above:Performed By: #### CMPX, CDP #### [address] [place], [place] [id number] Order Booker: LASHAWN ElderC (RBC) [Mass/Vol]32.9 g/fGIqjryw28.4-34.8[facility] HospitalComment on above:Performed By: #### CMPX, CDP #### [address] [place], [place] [id number] Order Booker: JUNAID ElderCV (RBC) [Entitic vol]86.8 bKGeiiqk74.6-102.9 [facility] HospitalComment on above:Performed By: #### CMPX, CDP #### [address] [place] [address] Order Booker: JUNAID Elderonocytes (Bld) [#/Vol]0.55 10*3/uLNormal0.10-1.20 [facility] HospitalComment on above:Performed By: #### CMPX, CDP #### [address] [place] [address] Order Booker: JUNAID Elderonocytes/100 WBC (Bld)7 %Normal3-12[facility] HospitalComment on above:Performed By: #### CMPX, CDP #### [facility] [address] [place] [address] [place] [address] Order Booker: Souleymane Pineda MDNeutrophil (Seg)57 %Evvekj10-44Ktwwm [facility]iffin HospitalComment on above:Performed By: #### CMPX, CDP #### [address] [place] [address] Order Booker: COURTNEY Elder Automated0.0 per 100 WBCNormal0.0[facility] HospitalComment on above:Performed By: #### CMPX, CDP #### [address] [place], [place] [id number] Order Booker: Greta Elder mean volume (Bld) [Entitic vol]9.4 fL Normal8.1-13.5[facility] HospitalComment on above:Performed By: #### CMPX, CDP #### [address] [place], [place] [id number] ([address] Order Booker: Kaylee Elderteyanni (Bld) [#/Vol]252 10*3/eURpoesv014-238 [facility] HospitalComment on above:Performed By: #### CMPX, CDP #### [facility] [address] [place] [address] Dr. [place], [place] [id number] Order Booker: FRANCISCO ElderBC (Bld) [#/Vol]4.31 10*6/uLNormal3.95-5.11[facility] HospitalComment on above:Performed By: #### CMPX, CDP #### [address] [place], [place] [id number] Order Booker: JESSE ElderBC (Bld) [#/Vol]8.3 10*3/uLNormal3.5-11.3[facility]aria HospitalComment on above:Performed By: #### CMPX, CDP #### [address] [place], [place] [address]83 Order Booker: Amaris Elder Diff PerformedNOT REPORTEDNormalCommunity Memorial Hospital HospitalComment on above:Performed By: #### CMPX, CDP #### [address] [place] [address] Order Booker: Kaylee Eldertelet CommentNOT REPORTEDNormalCommunity Memorial Hospital HospitalComment on above:Performed By: #### CMPX, CDP #### [address] [place], [place] [id number] Order Booker: SILVIA Elder morphology finding Nom (Bld)NOT REPORTEDNormal [facility] HospitalComment on above:Performed By: #### CMPX, CDP #### [address] [place], [place] [id number] Order Booker: RENETTA Elder MorphologyNOT REPORTEDNormalCommunity Memorial Hospital HospitalComment on above:Performed By: #### CMPX, CDP #### [address] [place], [place] [id number] Order Booker: BEE Elder HEAD WO CONTRASTon [id number] HEAD WO CONTRASTEXAMINATION: CT OF THE HEAD WITHOUT CONTRAST 12/24/2020 [...] shift. No abnormal extra-axial fluid collection. The grant-white differentiation is maintained without evidence of an acute infarct. There is no evidence of hydrocephalus. ORBITS: The visualized portion of the orbits demonstrate no acute abnormality. SINUSES: Rkxx-br-kgwcnskf paranasal sinus mucosal thickening. SOFT TISSUES/SKULL: No acute abnormality of the visualized skull or soft tissues. IMPRESSION: No acute intracranial abnormality. Interpreted by: Edwin Bentley MD Signed by: Edwin Bentley MD 12/24/20 Final resultNormalWestern Reserve HospitalCT Head WO ContrastOrdered By: Keven Ching on [id number] acute intracranial abnormality.[employer] Phone: eXAMINATION: CT OF THE HEAD WITHOUT CONTRAST 12/24/2020 [...] - unselect if not a suspected or confirmedemergency medical condition->Emergency Medical Condition (MA) Is the patient ?->No FIN DINGS: BRAIN/VENTRICLES: There is no acute intracranial hemorrhage, mass effect or midline shift. No abnormal extra-axial fluid collection. The grant-white differentiation is maintained without evidence of an acute infarct. There is no evidence of hydrocephalus. ORBITS: The visualized portion of theorbits demonstrate no acute abnormality. SINUSES: Mlyf-dz-litzafza paranasal sinus mucosal thickening. SOFT TISSUES/SKULL: No acute abnormality of the visualized skull or soft tissues.[employer] Phone: eruben [facility] Incoming Radiant Results From Sgnam - 12/24/2020 8:49 PM EDT EXAMINATION: CT [...] shift. No abnormal extra-axial fluid collection. The grant-white differentiation is maintained without evidence of an acute infarct. There is no evidence of hydrocephalus. ORBITS: The visualized portion of the orbits demonstrate no acute abnormality. SINUSES: Ymbs-vm-sgdjptpz paranasal sinus mucosal thickening. SOFT TISSUES/SKULL: No acute abnormality of the visualized skull or soft tissues. IMPRESSION: No acute intracranial abnormality. [facility] Work Phone: [facility] Work Phone: comp Metabolic Pr/rfx MGon [id number] [Mass/Vol]mg/dLLow0.3-1.2MCoshocton Regional Medical Center HospitalComment on above:Performed By: #### AGUSTÍN, CDP #### [address] [place] [address] Order Booker: Souleymane Pineda MD(cont.)[facility] Parma Medical CenterComment on above:Result Comment: Average GFR for 20-29 years old: 116 mL/min/1.73sq m Chronic Kidney Disease: <60 mL/min/1.73sq m Kidney failure: <15 mL/min/1.73sq m eGFR calculated using average adult body mass. Additional eGFR calculator available at: http://www.eFuelDepot.Lomography/multiple_crcl_2012.htmPerformed By: #### AGUSTÍN, CDP #### [address] [place] [address] Order Booker: Souleymane Pineda MDAlbumin [Mass/Vol]4.0 g/dLNormal3.5-5.2MMain Campus Medical CenterComment on above:Performed By: #### KEKEX, CDP #### [address] [place] [address] Order Booker: Souleymane Sturtz, MDAlbumin/Glob Ratio1.6Hpjlzw2.0-2.5MerWVUMedicine Barnes[facility] Hospital HospitalComment on above:Performed By: #### CMPX, CDP #### [address] [place], [place] 1373783 Order Booker: Jennifer Elderkaline Phos90 U/AFwdjvh49-233KzsxbWestern Reserve HospitalComment on above:Performed By: #### CMPX, CDP #### [facility] [address] [place] [address] [place] [address] Order Booker: Souleymane Pineda MDALT [Catalytic activity/Vol]40 U/LHigh5-33MerGreenwich HospitalComment on above:Performed By: #### CMPX, CDP #### [address] [place] [address] Order Booker: Souleymane Pineda MDAnion gap [Moles/Vol]11 mmol/LNormal9-17[facility] HospitalComment on above:Performed By: #### CMPX, CDP #### [address] [place] [address] Order Booker: Souleymane Pineda MDAST [Catalytic activity/Vol]19 U/LNormal<32MerGreenwich HospitalComment on above:Performed By: #### CMPX, CDP #### [facility] [address] [place] [address] [place] [address] Order Booker: Souleymane Pineda MDBUN/CRE Gjcri72Ejmedo1-88Vfuce [facility] Comment on above:Performed By: #### CMPX, CDP #### [facility] [address] [place] [address] [place] [address] Order Booker: Souleymane Pineda MDCalcium [Mass/Vol]8.9 mg/dLNormal8.6-10.4[facility] HospitalComment on above:Performed By: #### CMPX, CDP #### [address] [place] [address] Order Booker: CLARK Elderhloride [Moles/Vol]104 mmol/MYpltbv06-711Frajy [facility] HospitalComment on above:Performed By: #### CMPX, CDP #### [address] [place], [place] 6597483 Order Booker: Souleymane Pineda MDCO2 [Moles/Vol]24 mmol/USfhvtk07-48Ioxen [facility] HospitalComment on above:Performed By: #### CMPX, CDP #### [address] [place], [place] [id number] Order Booker: CLARK Elderreatinine [Mass/Vol]0.60 mg/dLNormal0.50-0.90 [facility] HospitalComment on above:Performed By: #### CMPX, CDP #### [address] [place], [place] [id number] Order Booker: Souleymane Pineda MDGFR, Amer>60Normal>60[facility] Comment on above:Performed By: #### CMPX, CDP #### [address] [place], [place] [address]83 Order Booker: Souleymane Pineda MDGFR,non Amer>60Normal>60[facility] Medical CenterComment on above:Performed By: #### CMPX, CDP #### [address] [place] [address] Order Booker: Souleymane Pineda MDGlucose [Mass/Vol]91 mg/oMDfwscj16-60Mvsnb Pomaria HospitalComment on above:Performed By: #### CMPX, CDP #### [address] [place], [place] [id number] Order Booker: Souleymane Pineda MDPotassium [Moles/Vol]4.0 mmol/LNormal3.7-5.3MCoshocton Regional Medical Center HospitalComment on above:Performed By: #### CMPX, CDP #### [address] [place] [address] Order Booker: MAGED Elderrotein [Mass/Vol]6.7 g/dLNormal6.4-8.3MMain Campus Medical CenterComment on above:Performed By: #### CMPX, CDP #### [address] [place] [address] Order Booker: ALEX Elderodium [Moles/Vol]139 mmol/ZWlxfbi419-668IioreWestern Reserve HospitalComment on above:Performed By: #### CMPX, CDP #### [address] [place] [address] Order Booker: ALEX Eldertaging:NormalWestern Reserve HospitalComment on above:Result Comment: Stage 1: Some kidney damage normal GFR Stage 2: Mild kidney damage GFR 60-89 Stage 3: Moderate kidney damage GFR 30-59 Stage 4: Severe kidney damage GFR 15-29 Stage 5: Severe kidney damage GFR <15 ESRD - chronic treatment by dialysis or transplantPerformed By: #### CMPX, CDP #### [address] [place] [address] Order Booker: Souleymane Pineda MDUrea nitrogen [Mass/Vol]9 mg/dLNormal6-20[facility] HospitalComment on above:Performed By: #### CMPX, CDP #### [address] [place] [address] Order Booker: CLARK Elderomprehensive Metabolic Panel w/ Reflex to MG Ordered By: Keven Ching on 80-11-8777Oblsacg [Mass/Vol]4 g/dL3.5 - 5.2 g/dL [facility] Work Phone: albumin/Globulin [Mass ratio]1.5 {ratio}[facility] Work Phone: WLP (Bld) [Catalytic activity/Vol]90 U/L35 - 104 U/L [facility] [employer] Work Phone: GLT [Catalytic activity/Vol]40 U/LHigh5 - 33 U/LMcleveland clinic children's [facility] [employer] Work Phone: Enion gap [Moles/Vol]11 mmol/L9 - 17 mmol/LMcleveland clinic [facility] [employer] Work Phone: AST [Catalytic activity/Vol]19 U/L<32[facility] [employer] Work Phone: Nilirubin [Mass/Vol]mg/dLLow0.3 - 1.2 mg/dLFlower Hospital [employer] Work Phone: Xalcium [Mass/Vol]8.9 mg/dL8.6 - 10.4 mg/dLFlower Hospital [employer] Work Phone: Fhloride [Moles/Vol]104 mmol/L98 - 107 mmol/LMsamaritan hospital [employer] Work Phone: RO2 [Moles/Vol]24 mmol/L20 - 31 mmol/LMsamaritan hospital [employer] Work Phone: creatinine [Mass/Vol]0.6 mg/dL0.50 - 0.90 mg/dLFlower Hospital [employer] Phone: Free PSA/Total PSA [Mass fraction]6.7 g/dL6.4 - 8.3 g/dLFlower Hospital [employer] Work Phone: GFR >60>60 mL/minFlower Hospital [employer] Work Phone: GFR Non->60>60 mL/minFlower Hospital [employer] Work Phone: Glucose [Mass/Vol]91 mg/dL70 - 99 mg/dLFlower Hospital [employer] Work Phone: Interpretation and review of laboratory results AbnormalFlower Hospital [employer] Work Phone: potassium [Moles/Vol]4.0 mmol/L3.7 - 5.3 mmol/LMsamaritan hospital [employer] Phone: sodium [Moles/Vol]139 mmol/L135 - 144 mmol/LMsamaritan hospital [employer] Work Phone: Urea nitrogen (BldV) [Mass/Vol]9 mg/dL6 - 20 mg/dL [facility] [employer] Phone: Urea nitrogen/Creatinine (Bld) [Mass ratio]15[facility] Work Phone: [facility] [employer] Phone: laboratory - Chemistry and Chemistry - challenge Ordered By: Keven Ching on [id number]/1.73 sq M.predicted MDRD (S/P/Bld) [Vol rate/Area][facility] Phone: comment on above:Average GFR for 20-29 years old: 116 mL/min/1.73sq m Chronic Kidney Disease: <60 mL/min/1.73sq m Kidney failure: <15 mL/min/1.73sq m eGFR calculated using average adult body mass. Additional eGFR calculator available at: http://www.[employer]oko/multiple_crcl_2011.htm Stage 1: Some kidney damage normal GFR Stage 2: Mild kidney damage GFR 60-89 Stage 3: Moderate kidney damage GFR 30-59 Stage 4: Severe kidney damage GFR 15-29 Stage 5: Severe kidney damage GFR <15 ESRD - chronic treatment by dialysis or transplant Vital Signs Date TimeVital SignValuePerforming BzyxpbxntLwtwwjyc37-04-2206 10:010400Body cmekgi450.9 cmAssumpta Thoora AUTO PAINTER-NURSE'S AIDES TEACHER Work Phone: [facility]10-31-2025 10:010400Body mass index (BMI) [Ratio]53.58 kg/z3Nzrbfmhz ascentifyesthela AUTO PAINTER-NURSE'S AIDES TEACHER Work Phone: [facility]10-31-2025 10:01-0400Body onaverdoitt59.9 [degF]Assumpta LV [employer] Work Phone: [facility]10-31-2025 10:01-0400Body .55 kgAssumpta Raul HECK-FADY Work Phone: [facility]10-31-2025 10:01-0400Diastolic blood zinshkiq06 mm[Hg]Assumpta Raul HECK-FADY Work Phone: [address] [place], [place] [address]10-31-2025 10:01-0400Heart rate 112 /minAssumpta Raul SCHMITTN-FADY Work Phone: [facility]10-31-2025 10:01-1332UrI1% (BldA) [Mass fraction]96 %Assumpta Raul HECK-FADY Work Phone: [facility]10-31-2025 10:01-0400Systolic blood mm[Hg]Assumpta Raul MCCLAIN Work Phone: [facility]10-28-2025 09:30-0400Body herucd274.9 cmSopal Peña DO Work Phone: [phone] [employer] Hxivqc83-23-8468 09:30-0400Body mass index (BMI) [Ratio]52.49 kg/s6ArtjqgVincent Peña DO Work Phone: [facility] [employer] Mtuusn37-83-6174 09:30-0400Body kgVincent Peña DO Work Phone: [phone] [employer] Ustsuy20-11-5641 09:30-0400Diastolic blood mm[Hg]Vincent Peña DO Work Phone: [facility] [employer] Gwegsd98-35-0145 09:30-0400Heart rate 79 /minSopal Peña DO Work Phone: [facility] [employer] Tirerm30-57-7534 09:30-4566AwF8% (BldA) [Mass fraction]99 %Vincent Peña DO Work Phone: [facility] [employer] Cqdvui89-75-5628 09:30-0400Systolic blood xyhurgui503 mm[Hg]Vincent Peña DO Work Phone: [facility]10-21-2025 15:00-0400Body .9 cmCorine Gold MD Work Phone: [facility]10-21-2025 15:00-0400Body mass index (BMI) [Ratio]52.49 kg/k3GuijqjeCorine Gold MD Work Phone: [phone]10-21-2025 15:00-0400Body pttkcewyvoq50.39 [degF]Corine Gold MD Work Phone: [facility]10-21-2025 15:00-0400Body akwygx013.01 kgCorine Gold MD Work Phone: [facility]10-21-2025 15:00-0400Diastolic blood ytwnvdjs12 mm[Hg]Corine Gold MD Work Phone: [facility]10-21-2025 15:00-0400Heart rate 77 /minCorine Gold MD Work Phone: [facility]10-21-2025 15:00-1203PfZ7% (BldA) [Mass fraction]94 %Corine Gold MD Work Phone: [facility]10-21-2025 15:00-0400Systolic blood npsqerhv260 mm[Hg]Corine Gold MD Work Phone: [facility]09-04-2025 14:57-0400Body zwaded366.4 cmAyvonne Hart APRN-NURSE'S AIDES TEACHER Work Phone: [facility]09-04-2025 14:57-0400Body mass index (BMI) [Ratio]53.75 kg/y7FsvfcqmrcMali Hart APRN-NURSE'S AIDES TEACHER Work Phone: [facility]09-04-2025 14:57-0400Body nskrqbyzdem55.6 [degF]Mali Hart AUTO PAINTER-NURSE'S AIDES TEACHER Work Phone: [facility]09-04-2025 14:57-0400Body ciscgl947.83 kgAledc Hart AUTO PAINTER-NURSE'S AIDES TEACHER Work Phone: [facility]09-04-2025 14:57-0400Diastolic blood gkgorley50 mm[Hg]Mali Hart AUTO PAINTER-NURSE'S AIDES TEACHER Work Phone: [facility]09-04-2025 14:57-0400Heart rate 97 /minAledc Hatr AUTO PAINTER-NURSE'S AIDES TEACHER Work Phone: [facility]09-04-2025 14:57-8550AhR0% (BldA) [Mass fraction]95 %Mali Hart AUTO PAINTER-NURSE'S AIDES TEACHER Work Phone: [facility]09-04-2025 14:57-0400Systolic blood mbjucans747 mm[Hg]Mali Hart AUTO PAINTER-NURSE'S AIDES TEACHER Work Phone: [facility]07-15-2025 10:33-0400Body mass index (BMI) [Ratio]50.73 kg/p1Phdzo Roopa DO Work Phone: [facility] RoadUxkxonqugp85-23-9291 10:33-0400Body semmnx174.79 kgCorey Roopa DO Work Phone: [facility] RoadNmyoavmhul58-44-6776 10:33-0400Diastolic blood aibfjwjc947 mm[Hg]Zay Roopa DO Work Phone: [facility] RoadCiohtnbehu94-76-0739 10:33-0400Systolic blood mm[Hg]Zay Roopa DO Work Phone: [facility] RoadKzcerkgqgk59-19-0925 12:12-0400Diastolic blood bsitnatk50 mm[Hg]Infusion 5 Work Phone: [facility]06-13-2025 12:12-0400Heart rate97 /min Infusion 5 Work Phone: [facility]06-13-2025 12:12-0400Systolic blood hbldyjwh451 mm[Hg]Infusion 5 Work Phone: [facility]06-12-2025 12:24-0400Diastolic blood mm[Hg]Infusion 7 Work Phone: [facility]06-12-2025 12:24-0400Heart rate98 /min Infusion 7 Work Phone: [facility]06-12-2025 12:24-0400Systolic blood niifozvu826 mm[Hg]Infusion 7 Work Phone: [facility]06-04-2025 15:07-0400Body ovwwrm752.4 cmHalima Johns APRN-NURSE'S AIDES TEACHER Work Phone: [facility]06-04-2025 15:07-0400Body mass index (BMI) [Ratio]49.76 kg/n9QpseadHalima Johns APRN-NURSE'S AIDES TEACHER Work Phone: [facility]06-04-2025 15:07-0400Body jgykimqajfn36.01 [degF]Halima Johns APRN-NURSE'S AIDES TEACHER Work Phone: [facility]06-04-2025 15:07-0400Body mxymyg343.58 kgHalima Johns APRN-NURSE'S AIDES TEACHER Work Phone: [facility]06-04-2025 15:07-0400Diastolic blood rqygaacr09 mm[Hg]Halima Johns APRN-NURSE'S AIDES TEACHER Work Phone: [facility]06-04-2025 15:07-0400Heart rate 102 /minHalima Johns APRN-NURSE'S AIDES TEACHER Work Phone: [facility]06-04-2025 15:07-0378JgD0% (BldA) [Mass fraction]99 %Halima Johns APRN-NURSE'S AIDES TEACHER Work Phone: [facility]06-04-2025 15:07-0400Systolic blood glezpltu488 mm[Hg]Halima Mirandaler AUTO PAINTER-NURSE'S AIDES TEACHER Work Phone: [facility]05-12-2025 08:40-0400Body mass index (BMI) [Ratio]47.2 kg/l2Fwhuz Roopa DO Work Phone: [facility] RoadJjocncskzu77-65-1942 08:40-0400Body lydewf242.31 kgCorevikas Roopa DO Work Phone: [facility] RoadWwdxumqyir99-34-9276 08:40-0400Diastolic blood mm[Hg]Zay Greero DO Work Phone: [facility] RoadFkutgjtjxd18-39-8876 08:40-0400Systolic blood mm[Hg]Zay Greero DO Work Phone: [facility] RoadRsxpijgfev68-88-1172 09:43-0400Body mass index (BMI) [Ratio]46.09 kg/c0Nlwuvptsharad Cotton DO Work Phone: [facility]04-01-2025 09:43-0400Body dsagpzbigpo06.81 [degF]Rajinder Poncemimi DO Work Phone: [facility]04-01-2025 09:43-0400Body qmnuze509.05 kgMicsharad Cotton DO Work Phone: [facility]04-01-2025 09:43-0400Diastolic blood owrkhmzl07 mm[Hg]Rajinder Cotton DO Work Phone: [facility]04-01-2025 09:43-0400Heart rate 106 /minMicdeysipradeep Lula DO Work Phone: [facility]04-01-2025 09:43-1129LpY4% (BldA) [Mass fraction]98 %Rajinder Krismimi DO Work Phone: [facility]04-01-2025 09:43-0400Systolic blood pblsyqej910 mm[Hg]Rajinder Cotton DO Work Phone: [facility]03-26-2025 08:46-0400Body iqqhsm555.4 cmCourmagdielyung Ye PA Work Phone: [facility]03-26-2025 08:46-0400Body mass index (BMI) [Ratio]46.36 kg/t9Uuoaqmkz Ye PA Work Phone: [facility]03-26-2025 08:46-0400Body ixlidtgfeau83.1 [degF]Svetlana Ye PA Work Phone: [phone]03-26-2025 08:46-0400Body iwhuoe949.68 kgCogisel Wallacene PA Work Phone: [phone]03-26-2025 08:46-0400Diastolic blood sogyajyl98 mm[Hg]Svetlana Wallacene PA Work Phone: [facility]03-26-2025 08:46-0400Heart rate 98 /minCourtyung Wallacene PA Work Phone: [facility]03-26-2025 08:46-0400 Respiratory rate18 /minCourtney Ye PA Work Phone: [facility]03-26-2025 08:46-4580GgK2% (BldA) [Mass fraction]98 %Svetlana Ye PA Work Phone: [facility]03-26-2025 08:46-0400Systolic blood hnaxpcig041 mm[Hg]Svetlana Wallacene PA Work Phone: [facility]03-13-2025 12:20-0400Diastolic blood mm[Hg]Infusion 7 Work Phone: [facility]03-13-2025 12:20-0400Heart rate90 /min Infusion 7 Work Phone: [facility]03-13-2025 12:20-0400Systolic blood ndfcviok519 mm[Hg]Infusion 7 Work Phone: [facility]03-06-2025 13:06-0500Body xniefs235.9 cmCorine Gold MD Work Phone: [facility]03-06-2025 13:06-0500Body mass index (BMI) [Ratio]44.01 kg/o4YpsyyakCorine Gold MD Work Phone: [facility]03-06-2025 13:06-0500Body cpphbvytwfp46.7 [degF]Corine Gold MD Work Phone: [facility]03-06-2025 13:06-0500Body .6 kgCorine Gold MD Work Phone: [facility]03-06-2025 13:06-0500Diastolic blood osnaqqee41 mm[Hg]Corine Gold MD Work Phone: [facility]03-06-2025 13:06-0500Heart rate 91 /minCorine Gold MD Work Phone: [facility]03-06-2025 13:06-5593OaT4% (BldA) [Mass fraction]98 %Corine Gold MD Work Phone: [facility]03-06-2025 13:06-0500Systolic blood yqgmkdhi910 mm[Hg]Corine Gold MD Work Phone: [facility]03-05-2025 09:45-0500Body mass index (BMI) [Ratio]44.58 kg/q2OccwvgeuSvetlana HERNANDEZ Work Phone: [facility]03-05-2025 09:45-0500Body xzfmyijprzm29.9 [degF]Svetlana HERNANDEZ Work Phone: [facility]03-05-2025 09:45-0500Body oloksk563.96 kgCogisel HERNANDEZ Work Phone: [facility]03-05-2025 09:45-0500Diastolic blood yvczpckt25 mm[Hg]Svetlana Ye PA Work Phone: [phone] Tovfgg12-31-5124 09:45-0500Heart rate 99 /minCourtney Ye PA Work Phone: [phone] [place], [place] [address] Oamqgj60-09-3757 09:45-3038ZvG6% (BldA) [Mass fraction]96 %Svetlana Ye PA Work Phone: [phone] [place], [place] [address] Diwuwf03-00-8034 09:45-0500Systolic blood zdcxcsge530 mm[Hg]Svetlana Ye PA Work Phone: [phone] [place], [place] [address] Flowmt27-07-4754 09:16-0500Diastolic blood zxmpwcoh19 mm[Hg]Svetlana Ye PA Work Phone: [phone] [place], [place] [address] Kmxicu20-97-2085 09:16-0500Heart rate 88 /minCourtney Ye PA Work Phone: [phone] [place] [address] [employer] Jgtsag30-77-6179 09:16-0500 Respiratory rate16 /minCourtney Ye PA Work Phone: [address] [place], [place] [address] Wfwoqx42-42-0368 09:16-3007GjN7% (BldA) [Mass fraction]96 %Svetlana Ye PA Work Phone: [phone] [place], [place] [address] Rxrqja11-39-9067 09:16-0500Systolic blood cberetcz797 mm[Hg]Svetlana Ye PA Work Phone: [phone] [place], [place] [address] [employer] Gobzih70-02-9065 09:01-0500Body cojerm317.9 cmCourtney Ye PA Work Phone: [phone] [place], [place] [address] Bxkrgd66-33-4981 09:01-0500Body mass index (BMI) [Ratio]45.83 kg/p9Xtijhclx Ye PA Work Phone: [phone] [place], [place] [address] Sapfnc17-96-4477 09:01-0500Body hxxrun527.95 kgCourtney Ye PA Work Phone: [phone] [place], [place] 0461202-19-2025 11:09-0500Body mudfuidehpn13.5 [degF]Milad Hernandez MD Work Phone: 1([phone] [place], [place] 0461202-19-2025 11:09-0500Diastolic blood ncgjxiiz87 mm[Hg]Milad Hernandez MD Work Phone: 1(357)7-[address] [place], [place] 0461202-19-2025 11:09-0500Heart rate 90 /minMilad Hernandez MD Work Phone: [phone] [place], [place] 0461202-19-2025 11:09-0500 Respiratory rate18 /minMilad Hernandez MD Work Phone: 1([phone] [place], [place] 0461202-19-2025 11:09-7029EuY3% (BldA) [Mass fraction]95 %Milad Hernandez MD Work Phone: 1(937)2-[address] [place], [place] 0461202-19-2025 11:09-0500Systolic blood sqihexzx148 mm[Hg]Milad Hernandez MD Work Phone: [phone] [place], [place] 046[address]02-19-2025 05:25-0500Body mass index (BMI) [Ratio]47.4 kg/m2Milad Hernandez MD Work Phone: [phone]02-19-2025 05:25-0500Body .8 kgMilad Hernandez MD Work Phone: [phone]02-11-2025 13:07-0500Body mass index (BMI) [Ratio]45.73 kg/v1Cmrte Roopa DO Work Phone: [facility] RoadYmtwrgulgo09-65-1429 13:07-0500Body lbupnn117.77 kgCorey Roopa DO Work Phone: [facility] RoadYbghnlegpc70-25-9623 13:07-0500Diastolic blood ytdadfyc30 mm[Hg]Zay Roopa DO Work Phone: [facility] RoadBzmnraezqp74-71-5526 13:07-0500Systolic blood mhvyvnfk826 mm[Hg]Zay Blas DO Work Phone: [facility] RoadQnuqleodyn00-16-0897 15:21-0500Body temperature 98.2 [degF][address]02-03-2025 15:21-0500Diastolic blood subvpksi47 mm[Hg][address]02-03-2025 15:21-0500Heart rate86 /min[address]02-03-2025 15:21-0500Respiratory rate20 /min [address]02-03-2025 15:21-5108StT0% (BldA) [Mass fraction] 99 %[address]02-03-2025 15:21-0500Systolic blood pressure 132 mm[Hg][address]02-03-2025 14:58-0500Body eznxkq805.[address]02-03-2025 14:58-0500Body mass index (BMI) [Ratio] 45.57 kg/h7Fcbwk[address]02-03-2025 14:58-0500Body .[address]01-29-2025 12:15-0500Body ajarey810.9 cmSopal Peña DO Work Phone: [facility]01-29-2025 12:15-0500Body mass index (BMI) [Ratio]45.54 kg/g4ShnwkeVincent Peña DO Work Phone: [facility]01-29-2025 12:15-0500Body cimang900.32 kgVincent Peña DO Work Phone: [facility]01-29-2025 12:15-0500Diastolic blood qrbebtuz73 mm[Hg]Vincent Peña DO Work Phone: [facility]01-29-2025 12:15-0500Heart rate 97 /minSopal Peña DO Work Phone: [facility]01-29-2025 12:15-1146LoM2% (BldA) [Mass fraction]98 %Vincent Peña DO Work Phone: [facility]01-29-2025 12:15-0500Systolic blood hrmuroux720 mm[Hg]Vincent Peña DO Work Phone: [facility]01-29-2025 12:07-0500Body ccicfv332.[address] [place], [place] 0782701-29-2025 12:07-0500Body mass index (BMI) [Ratio]45.54 kg/m2Wlc [address] [place], [place] 0782701-29-2025 12:07-0500Body cwyenf130.[address] [place], [place] 0782701-27-2025 11:03-0500Body .9 Elena Martinez MD Work Phone: [phone]92[facility]01-27-2025 11:03-0500Body mass index (BMI) [Ratio]45.69 kg/x6XcznqidyMundo Martinez MD Work Phone: [phone]-[facility]01-27-2025 11:03-0500Body abkpbkpxhej69.9 [degF]Mundo Martinez MD Work Phone: [phone]01-27-2025 11:03-0500Body hofkzk033.68 kgMundo Martinez MD Work Phone: 1([phone])2-[address] [place], [place] [address]46[address]01-27-2025 11:03-0500Heart rate 77 /Hanh Martinez MD Work Phone: [phone]01-27-2025 11:03-3503TkF9% (BldA) [Mass fraction]99 %Mundo Martinez MD Work Phone: [phone]01-15-2025 10:45-0500Body mass index (BMI) [Ratio]45.69 kg/b6Swqrl Roopa DO Work Phone: [facility] RoadHckxtcneme46-99-9261 10:45-0500Body goolej230.68 kgCorey Roopa DO Work Phone: [facility] RoadGrrsygwspx64-03-0431 10:45-0500Diastolic blood ybdvdkus31 mm[Hg]Zay Roopa DO Work Phone: 1(363)[facility] RoadPoekmvotjh87-71-0955 10:45-0500Systolic blood xumfdphu965 mm[Hg]Zay Roopa DO Work Phone: 1(239)[facility] [place], [place] [address]Ewkqwjgdon94-25-8679 11:25-0500Body mass index (BMI) [Ratio]47.31 kg/b4Lxclf Roopa DO Work Phone: 1(993)[facility] [place], [place] [address]Igoelnycfo46-50-5914 11:25-0500Body iipcld659.58 kgCorey Roopa DO Work Phone: 1(363)[facility] [place], [place] [address]Gonlzvfikm14-91-4644 11:25-0500Diastolic blood zyumtahe27 mm[Hg]Zay Roopa DO Work Phone: 1(497)[facility]Former[facility] RoadSgpgeqxrez10-96-6815 11:25-0500Systolic blood xfpeuhmp920 mm[Hg]Zay Roopa DO Work Phone: [facility] RoadSncskulzlv54-84-4810 10:38-0500Body bnagjn183.9 cmLamont Blair MD Work Phone: [facility] RoadWnfdvrjqzs18-25-0439 10:38-0500Body mass index (BMI) [Ratio]49.13 kg/m2Lamont Blair MD Work Phone: [facility] RoadJbokfrkrum74-44-0750 10:38-0500Body temperature 98.01 [degF]Lamont Blair MD Work Phone: [facility] RoadYqmnenfqpl88-69-4971 10:38-0500Body cnnyod807.94 kgLamont Blair MD Work Phone: [facility] RoadHaaniqcwvx89-13-0036 10:38-0500Diastolic blood dqkvtoot69 mm[Hg]Lamont Blair MD Work Phone: [facility] RoadAehvipytrp04-88-7575 10:38-0500Heart mwqz123 /min Lamont Blair MD Work Phone: [facility] RoadVytnvzvlen65-92-6126 10:38-0500Respiratory rate22 /minLamont Blair MD Work Phone: [facility] RoadImtrxomwsd23-42-3624 10:38-3121JcP8% (BldA) [Mass fraction]90 %Lamont Blair MD Work Phone: [facility] RoadWwsduohkoq53-11-9985 10:38-0500Systolic blood uidxdspb636 mm[Hg]Lamont Blair MD Work Phone: [facility] RoadAbshiipujk82-37-8021 13:28-0500Body xbsyvn526.9 cmLamont Blair MD Work Phone: [facility] RoadJdaokmqtht69-75-2128 13:28-0500Body mass index (BMI) [Ratio]52.91 kg/m2Lamont Blair MD Work Phone: [facility] RoadLlhihvqdck49-65-3816 13:28-0500Body temperature 98.4 [degF]Lamont Blair MD Work Phone: [facility] RoadEfgksgwblt46-40-9299 13:28-0500Body .01 kgLamont Blair MD Work Phone: [facility] RoadSyeplcdske96-68-0207 13:28-0500Diastolic blood bywplvfc04 mm[Hg]Lamont Blair MD Work Phone: [facility] RoadZumnmeizbz27-81-4504 13:28-0500Heart vntb228 /min Lamont Blair MD Work Phone: [facility] RoadPlbozijtlb17-36-8797 13:28-0500Respiratory rate26 /minLamont Blair MD Work Phone: [facility] RoadVuikfaadln33-02-6751 13:28-7247WbW4% (BldA) [Mass fraction]87 %Lamont Blair MD Work Phone: [facility] RoadEyrgsovznr28-12-7139 13:28-0500Systolic blood tdnhfipc852 mm[Hg]Lamont Blair MD Work Phone: [facility] RoadHdrwebodae25-92-5774 15:39-0500Diastolic blood chuuiviy76 mm[Hg]Infusion 1 Work Phone: [facility]12-02-2024 15:39-0500Heart rate97 /min Infusion 1 Work Phone: [facility]12-02-2024 15:39-0500Systolic blood mm[Hg]Infusion 1 Work Phone: [facility]12-02-2024 13:35-2465PnY8% (BldA) [Mass fraction]97 %Infusion 1 Work Phone: [facility]Com[facility] on above:on room bso48-51-8867 11:28-0500Diastolic blood lfrtxiiu57 mm[Hg]Infusion 5 Work Phone: [phone]11-29-2024 11:28-0500Heart rate88 /min Infusion 5 Work Phone: [phone]11-29-2024 11:28-0500Systolic blood mgupdvyr965 mm[Hg]Infusion 5 Work Phone: [facility]11-29-2024 10:00-0500Body temperature 97.3 [degF]Infusion 5 Work Phone: [facility]11-27-2024 11:09-0500Diastolic blood mm[Hg]Infusion 6 Work Phone: [phone]11-27-2024 11:09-0500Heart rate85 /min Infusion 6 Work Phone: [phone]11-27-2024 11:09-0500Systolic blood skxccsyo815 mm[Hg]Infusion 6 Work Phone: [facility]11-19-2024 09:18-0500Body .9 cmLamont Blair MD Work Phone: [facility] RoadTepactaqis37-40-8862 09:18-0500Body mass index (BMI) [Ratio]53.66 kg/m2Lamont Blair MD Work Phone: [place] [address]Cgnyvkncpa64-68-9428 09:18-0500Body temperature 98.01 [degF]Lamont Blair MD Work Phone: [place] [address]Gjgiiafaef55-02-9401 09:18-0500Body hfvfoh236.82 kgLamont Blair MD Work Phone: [place] [address]Gzhbbdvzcc88-33-2748 09:18-0500Diastolic blood orvfnqvw72 mm[Hg]Lamont Blair MD Work Phone: [phone] [place], [place] [address]Rwofqlylqh63-20-5936 09:18-0500Heart czul942 /min Lamont Blair MD Work Phone: [place] [address]Omvftotnwx33-16-5218 09:18-0500Respiratory rate20 /minLamont Blair MD Work Phone: [place] [address]Vyukhmahwk82-21-0174 09:18-8791ThB7% (BldA) [Mass fraction]90 %Lamont Blair MD Work Phone: [place] [address]Klevseqlee98-35-1323 09:18-0500Systolic blood rqaducwi304 mm[Hg]Lamont Blair MD Work Phone: [place] [address]Xadzakexny17-73-1483 13:38-0500Diastolic blood larxlnyd23 mm[Hg]Infusion 8 Work Phone: [facility]11-15-2024 13:38-0500Heart kcth765 /minInfusion 8 Work Phone: [facility]11-15-2024 13:38-0500Systolic blood coqwubyx124 mm[Hg]Infusion 8 Work Phone: [facility]09-25-2024 09:05-0400Body vaxudo152.9 cmLamont Blair MD [facility] Phone: [facility] RoadLfqfemcypm00-91-8437 09:05-0400Body mass index (BMI) [Ratio]51.58 kg/m2Lamont Blair MD Work Phone: [facility] RoadHgtxfxpwis08-48-1731 09:05-0400Body temperature 97.81 [degF]Lamont Blair MD Work Phone: [facility] RoadAomaaygfkl76-80-4055 09:05-0400Body ifrdyc569.83 kgLamont Blair MD Work Phone: [facility] RoadEvbmjmncdy34-66-0264 09:05-0400Diastolic blood mbahtnsz18 mm[Hg]Lamont Blair MD Work Phone: [facility] RoadMbbesstzgx26-49-6372 09:05-0400Heart rate60 /min Lamont Blair MD Work Phone: [facility] RoadWjadweqado59-88-1714 09:05-0400Respiratory rate24 /minLamont Blair MD Work Phone: [facility] RoadIwgamixcrs36-53-5787 09:05-0400Systolic blood weqtxpsk352 mm[Hg]Lamont Blair MD Work Phone: [facility] RoadHpssgavini39-47-7361 13:51-0400Diastolic blood vjonandn01 mm[Hg]Infusion 8 Work Phone: [facility]08-23-2024 13:51-0400Heart rate77 /min Infusion 8 Work Phone: [facility]08-23-2024 13:51-0400Systolic blood srnvaabm022 mm[Hg]Infusion 8 Work Phone: [facility]08-20-2024 09:25-0400Body njvymw759.9 cmLamont Blair MD Work Phone: [facility] RoadXhuszxalet55-26-9605 09:25-0400Body mass index (BMI) [Ratio]48.94 kg/m2Lamont Blair MD Work Phone: [facility] CenterHwxvmpzaca42-81-9056 09:25-0400Body temperature 97.5 [degF]Lamont Blair MD Work Phone: [place] [address]Tvkjcxrwjf89-97-1467 09:25-0400Body .48 kgLamont Blair MD Work Phone: [facility] RoadLteackksoz76-94-9500 09:25-0400Diastolic blood hweryaas84 mm[Hg]Lamont Blair MD Work Phone: [facility] RoadOtdabrzuts41-47-4366 09:25-0400Heart rate88 /min Lamont Blair MD Work Phone: [facility] RoadCbltfbmtqk59-47-2670 09:25-0400Respiratory rate22 /minLamont Blair MD Work Phone: [facility] RoadRxzbvvlfnh90-78-7442 09:25-5316NjE4% (BldA) [Mass fraction]95 %Lamont Blair MD Work Phone: [facility] RoadLaedfhdczb60-42-6337 09:25-0400Systolic blood yrgyfqer408 mm[Hg]Lamont Blair MD Work Phone: [facility] RoadPviuxawhst25-28-1124 14:22-0400Body iaprsd611.4 cmSagar Green AUTO PAINTER.NURSE'S AIDES TEACHER Work Phone: [facility]07-30-2024 14:22-0400Body mass index (BMI) [Ratio]47.33 kg/m2Sagar Green AUTO PAINTER.NURSE'S AIDES TEACHER Work Phone: [facility]07-30-2024 14:22-0400Body temperature 99.1 [degF]Cameroni Green AUTO PAINTER.NURSE'S AIDES TEACHER Work Phone: [facility]07-30-2024 14:22-0400Body ydqwvf187.75 kgSagar Green AUTO PAINTER.NURSE'S AIDES TEACHER Work Phone: [facility]07-30-2024 14:22-0400Diastolic blood awljkexm02 mm[Hg]Cameroni Green AUTO PAINTER.NURSE'S AIDES TEACHER Work Phone: [facility]07-30-2024 14:22-0400Heart rate80 /min Sagar Green AUTO PAINTER.NURSE'S AIDES TEACHER Work Phone: [facility]07-30-2024 14:22-0400Systolic blood mm[Hg]Sagar Barth APRN.NURSE'S AIDES TEACHER Work Phone: [facility]06-28-2024 09:26-0400Diastolic blood hshaudrk99 mm[Hg]Curtis Lepe PA-C Work Phone: c[facility] HospitalRxlkuy45-88-9752 09:26-0400Heart rate88 /min Curtis Lepe PA-C Work Phone: c[facility] HospitalDttdyo33-81-3190 09:26-2134BoE2% (BldA) [Mass fraction]97 %Curtis Lepe PA-C Work Phone: c[facility] HospitalMvpqzj83-58-4432 09:26-0400Systolic blood ozwfyhdy457 mm[Hg]Curtis Lepe PA-C Work Phone: c[facility] HospitalEliaif50-04-4095 11:08-0500Diastolic blood jpquysyl51 mm[Hg]Infusion 7 Work Phone: [facility]02-23-2024 11:08-0500Heart rate84 /min Infusion 7 Work Phone: [facility]02-23-2024 11:08-0500Systolic blood jinbfzwq060 mm[Hg]Infusion 7 Work Phone: [facility]02-22-2024 10:50-0500Diastolic blood uktdsiar56 mm[Hg]Infusion 7 Work Phone: [place] [address]-22-2024 10:50-0500Heart rate86 /min Infusion 7 Work Phone: [facility]02-22-2024 10:50-0500Systolic blood rbexcwan375 mm[Hg]Infusion 7 Work Phone: [facility]02-21-2024 13:45-0500Diastolic blood hseatkjk00 mm[Hg]Infusion 7 Work Phone: [place] [address]-21-2024 13:45-0500Heart rate79 /min Infusion 7 Work Phone: [facility]02-21-2024 13:45-0500Systolic blood pgfispgy119 mm[Hg]Infusion 7 Work Phone: [facility]09-22-2023 10:55-0400Diastolic blood mm[Hg]Infusion 8 Work Phone: [facility]09-22-2023 10:55-0400Heart rate83 /min Infusion 8 Work Phone: [facility]09-22-2023 10:55-0400Systolic blood auyibhzs068 mm[Hg]Infusion 8 Work Phone: [facility]06-08-2023 10:15-0400Diastolic blood rqigsmwq16 mm[Hg]Infusion 8 Work Phone: [facility]06-08-2023 10:15-0400Heart rate80 /min Infusion 8 Work Phone: [facility]06-08-2023 10:15-0400Systolic blood ajsllhfy960 mm[Hg]Infusion 8 Work Phone: [facility]10-14-2022 09:47-0400Diastolic blood biplfgbx15 mm[Hg]Jesse Borrego MD Work Phone: [facility]10-14-2022 09:47-0400Heart rate66 /min Jesse Borrego MD Work Phone: [facility]10-14-2022 09:47-3008PrR0% (BldA) [Mass fraction]100 %Jesse Borrego MD Work Phone: [facility]10-14-2022 09:47-0400Systolic blood innmtxoy684 mm[Hg]Jesse Borrego MD Work Phone: [facility]08-31-2022 12:00-0400Diastolic blood fcwezoaz564 mm[Hg]Lucila Mota MD Work Phone: [facility]08-31-2022 12:00-0400Heart rate85 /minSolomon Carter Fuller Mental Health Centerradha Mota MD Work Phone: [facility]MSnapMD [facility] RKBCBO54-15-4603 12:00-0400 Respiratory rate12 /Anastasia Mota MD Work Phone: [facility]08-31-2022 12:00-2822MlE1% (BldA) [Mass fraction]98 %Lucila Mota MD Work Phone: [facility]08-31-2022 12:00-0400Systolic blood ppfvkquf104 mm[Hg]Lucila Mota MD Work Phone: [facility]08-31-2022 08:00-0400Body bkjbxiqplhn76.2 [degF]Lucila Mota MD Work Phone: [facility]11-04-2021 19:36-0400Body fvdmakkctlv37 [degF]Keven Ching DO Work Phone: [facility] Work Phone: 1(794) 504-153711-04-2021 19:36-0400Diastolic blood kgdpzimh81 mm[Hg] Keven Ching DO Work Phone: [facility] [employer] Work Phone: 1(563) 525-898311-04-2021 19:36-0400Heart erlr113 /minAmanda Joshua DO Work Phone: [facility] [employer] Work Phone: 1(589) 154-975711-04-2021 19:36-0400Respiratory rate20 /minAmanda Joshua DO Work Phone: [facility] [employer] Work Phone: 1(408) 559-540211-04-2021 19:36-7398JiP0% (BldA) [Mass fraction]96 % Keven Ching DO Work Phone: [facility] [employer] Work Phone: 1(860) 253-281511-04-2021 19:36-0400Systolic blood wiqxdoyg280 mm[Hg] Keven Ching DO Work Phone: [facility] Work Phone: Encounters Encounter DateEncounter TypeCare ProviderFacilityStart: 12-20-2024 End: 85-39-9478Ghfrox outpatient visit 25 minutesAssumpta Radha Nnaji AUTO PAINTER-NURSE'S AIDES TEACHER Work Phone: [facility] Family MedicineComment on above: Moderate persistent asthma without complication (Primary Dx); Watery eyes; Seasonal allergic rhinitis, unspecified triggerStart: 12-17-2024 End: 43-32-1499Fkucnj outpatient visit 25 minutesVincent Peña DO Work Phone: [facility] Pulmonary/Sleep MedicineComment on above:Moderate persistent asthma without complication (Primary Dx); Gastroesophageal reflux disease without esophagitis; Environmental allergiesStart: 12-13-2024 End: 01-40-6017jmusyyfrgrZHNEFAL SCHAEFERFacility:[facility] Start: 12-12-2024 End: 13-15-0447Uvooyxacj encounterCorine Gold MD Work Phone: [facility] - [facility] Comment on above:Sleep Lab (Comp PSG/PAP)Start: 12-12-2024 End: 69-04-1448epnuvexvofZYPZPkbkaczc:[facility] Hospitaltart: 12-11-2024 End: 97-24-6634wnwonjglufZJSI GREENFacility:[facility] Hospitaltart: 12-10-2024 End: 10-52-5022Dreara outpatient visit 25 minutesCorine Gold MD Work Phone: [facility] Family MedicineComment on above: JUAN DAVID (obstructive sleep apnea) (Primary Dx)Start: 12-09-2024 End: 58-37-9386FdnkhxBbqwbq M Elston DO Work Phone: [facility] Pulmonary/Sleep MedicineComment on above:Moderate asthma with acute exacerbation, unspecified whether persistent Start: 63-05-9255rsjqzgrbnzLxjppticgty AbdelazizFacility:[facility] Centertart: 11-26-2024 End: 34-16-8831azvbrhlgctKZXOGPX SCHAEFERFacility:[facility] Start: 10-24-2024 End: 60-49-4565Ericdt outpatient visit 15 minutesAlexaluisa Hart AUTO PAINTER-NURSE'S AIDES TEACHER Work Phone: [facility] MedicineComment on above: Left otitis media, unspecified otitis media type (Primary Dx); Mild asthma with exacerbation, unspecified whether persistentStart: 09-30-2024 End: 51-08-1953Jokciv Gabriel Peña DO Work Phone: [facility] Pulmonary/Sleep MedicineComment on above:Moderate persistent asthma, unspecified whether complicatedStart: 09-29-2024 End: 35-23-4354JaaovpBwilrlm M Asif MD Work Phone: [facility] Family MedicineComment on above: Muscle spasmStart: 09-24-2024 End: 75-06-0137ugbtvusnloAMWYHAG SCHAEFERFacility:[facility] Start: 09-03-2024 End: 55-85-0493Dqgqow flowsheetCorey Roopa DO Work Phone: [facility] BCP OBStart: 09-03-2024 End: 24-68-7320Jdtfef flowsheetCorey Roopa DO Work Phone: [facility] BCP OBStart: 09-03-2024 End: 14-43-9544Bnxnwa outpatient visit 15 minutesCorey Roopa DO Work Phone: [facility] BCP OBComment on above:Hot flashes due to surgical menopauseStart: 09-03-2024 End: 05-35-5049xuraqiijkeELWIN FAZIONot AvailableStart: 09-02-2024 End: 62-67-6156Cvmkdg OnlyKoli Green AUTO PAINTER.NURSE'S AIDES TEACHER Work Phone: [facility] [place] FHCComment on above:Intractable chronic migraine without aura and without status migrainosus (Primary Dx)Start: 08-30-2024 End: 55-94-9220Sxhdgt OnlyKoli Green AUTO PAINTER.NURSE'S AIDES TEACHER Work Phone: [facility]rology [facility] [place] FHCStart: 08-26-2024 End: 16-45-3577Ypnftv LadiMali Hart AUTO PAINTER-NURSE'S AIDES TEACHER Work Phone: [facility] Family MedicineComment on above: Allergic reaction, sequela (Primary Dx)Start: 08-16-2024 End: 75-42-3157dmaiehvshgZjrg Green APRN.NURSE'S AIDES TEACHER Work Phone: [facility]rology [facility] [place] FHCComment on above:InfusionStart: 08-15-2024 End: 91-37-8607vbwysdtidrJpdrwps Schaefer PA-C Work Phone: NeurologyComment on above:Heads poundingStart: 08-05-2024 End: 18-37-3285Sxxkakdtk encounterChelsea [facility] Home DeliveryComment on above:Insurance Authorization (Zavzpret 10MG/ACT solution); Zavzpret 10MG/ACT solutionStart: 08-02-2024 End: 19-21-3020Sxpopmn encounter procedureMajakbu Lepe PA-C Work Phone: NeurologyComment on above:Intractable chronic migraine without aura and with status migrainosus (Primary Dx); Status migrainosusStart: 08-02-2024 End: 69-49-5782tanbxgxvdqGncdkzpd Main Chair 5 Work Phone: NeurologyComment on above:Chronic migraine without aura, with intractable migraine, so stated, with status migrainosus (Primary Dx); Intractable chronic migraine without aura and with status migrainosusStart: 08-01-2024 End: 14-14-7488kbmdgvcujqJyulpkor Main Chair 7 Work Phone: NeurologyComment on above:Intractable chronic migraine without aura and without status migrainosus (Primary Dx)Start: 07-24-2024 End: 13-44-2805Cayzhl outpatient visit 25 minutesHalima Johns APRN-NURSE'S AIDES TEACHER Work Phone: [facility] Family MedicineComment on above: Eye infection, bilateral (Primary Dx); Ingrown nail of great toeStart: 07-05-2024 End: 17-23-9457Pbinclrqvqtsa procedureJoSt. Mary Rehabilitation Hospital ClinicComment on above:Received BHP FAXStart: 07-05-2024 End: 61-15-5134Ztnilvkex encounterMajakub Lepe PA-C Work Phone: NeurologyComment on above:Infusion (Headache infusion scheduling)Start: 07-04-2024 End: 66-09-7916Qcevdzjs HealthMattmaixmilian Lepe PA-C Work Phone: NeurologyComment on above:Status migrainosus (Primary Dx); Intractable chronic migraine without aura and without status migrainosus; Generalized anxiety disorder; Chronic migraine without aura, with intractable migraine, so stated, with status migrainosus; Intractable chronic migraine without aura and with status migrainosusStart: 07-01-2024 End: 96-29-8593Nbedyl flowsheetCorey Roopa DO Work Phone: NOQ[facility] BCP OBStart: 07-01-2024 End: 05-07-9502Rsjrqv flowsheetCorey Roopa DO Work Phone: [facility] BCP OBStart: 07-01-2024 End: 32-25-0827Zezqmo outpatient visit 15 minutesCorey Roopa DO Work Phone: [facility] BCP OBComment on above:Yeast infection; BV (bacterial vaginosis); Low libido; Dyspareunia in femaleStart: 07-01-2024 End: 90-73-9073ybnoqlduelKGVWS FAZIONot AvailableStart: 06-25-2024 End: 24-61-2830Nfuqiaffe encounterViktoria Walton MS, CGC Work Phone: Genetics ClinicComment on above:Genetic Testing Prior Authorization RequestStart: 06-11-2024 End: 49-42-7389mzzugfekqgJFZEHGN M [facility] Hospitaltart: 06-10-2024 End: 31-83-5076Zmewcw OnlyViktoria Walton MS, CGC Work Phone: Genetics ClinicStart: 06-07-2024 End: 03-23-3986Lnctwzaib encounterGtramya Fernández JohnProMedica Call CenterStart: 06-06-2024 End: 26-50-3017Hzlxft outpatient visit 25 minutesCorine Gold MD Work Phone: [facility] Family MedicineComment on above: Weight loss (Primary Dx); Moderate persistent asthma with acute exacerbation; Seasonal allergic rhinitis, unspecified triggerStart: 06-06-2024 End: 42-72-6441CmgwnbPkiartd M Asif MD Work Phone: [facility] Family MedicineComment on above: Seasonal allergic rhinitis, unspecified triggerStart: 05-31-2024 End: 58-47-4978CvamghWqxqShaw Barth APRN.CNP Work Phone: [facility]rology [facility] FHCComment on above:Refill RequestStart: 05-24-2024 End: 02-23-5435TsenpdIignvk M Elston DO Work Phone: [facility] Pulmonary/Sleep MedicineComment on above:Moderate persistent asthma, unspecified whether complicatedStart: 05-21-2024 End: 06-95-2025Bkrtcc outpatient visit 15 minutesRajinder Cotton DO Work Phone: [facility] Family MedicineComment on above: Moderate persistent asthma with acute exacerbation (Primary Dx); Acute pansinusitis, recurrence not specified; Antibiotic-induced yeast infectionStart: 05-15-2024 End: 55-18-5529Sfasvr follow up visit related to original Edgardo HERNANDEZ Work Phone: [facility] - Medical OncologyComment on above:S/P bilateral salpingo-oophorectomy (Primary Dx); Menopausal symptomsStart: 05-07-2024 End: 97-09-7077Tuhstqooy encounterAngely Cotton RN Work Phone: [facility] Home DeliveryComment on above: Insurance Authorization; ubrelvyStart: 05-03-2024 End: 39-28-8911Cfptfxxq [facility] Hospitalmaximilian Lepe PA-C Work Phone: NeurologyComment on above:Intractable chronic migraine without aura and with status migrainosus (Primary Dx); Nausea; Generalized anxiety disorderStart: 05-02-2024 End: 02-58-1766Bczkvm Martin HERNANDEZ Work Phone: [facility] Medical CenterComment on above:Postoperative infection, unspecified type, subsequent encounter (Primary Dx)Chronic migraine without aura, with intractable migraine, so stated, with status migrainosus (Primary Dx); Intractable chronic migraine without aura and with status migrainosus; Intractable chronic migraine without aura and without status migrainosusStart: 05-01-2024 End: 94-21-8586Kplpet Gabriel Peña DO Work Phone: [facility] Pul[facility]/Sleep MedicineComment on above:Moderate persistent asthma, unspecified whether complicatedStart: 04-30-2024 End: 61-21-4351Ynnmfyoxs encounterCaterina Smith CMAProMedica Physicians Family MedicineStart: 04-29-2024 End: 92-84-3684Dzrxgj OnlyMali MCCLAIN Work Phone: [facility] Family MedicineComment on above: Postoperative surgical complication involving genitourinary system associated with genitourinary procedure, unspecified complicationStart: 04-25-2024 End: 69-52-0478Vylwog outpatient new 45 minutesCorine Gold MD Work Phone: [facility] Family MedicineComment on above: Muscle spasm (Primary Dx); Fatigue due to depression; Nausea and vomiting, unspecified vomiting type; Mild persistent asthma without status asthmaticus without complication; Psychogenic nonepileptic seizureStart: 04-24-2024 End: 44-58-8947Uvtouwjtgdiuy procedureCanraghu [facility] - Medical OncologyStart: 04-24-2024 End: 97-60-5060Kkwtmr follow up visit related to original pxCourtney Ye PA Work Phone: [facility] - Medical OncologyComment on above:Post-operative pain (Primary Dx)Start: 04-19-2024 End: 92-18-7264zqtfbyfjouGmqc Green APRN.NURSE'S AIDES TEACHER Work Phone: Neurology [facility] FHCComment on above:InfusionsStart: 04-16-2024 End: 23-82-1515Xvryrb flowsheetCorey Roopa DO Work Phone: [facility] BCP OBStart: 04-16-2024 End: 44-45-3504Mliecf flowsheetCorey Roopa DO Work Phone: [facility] BCP OBStart: 04-16-2024 End: 52-82-7368Vsjdjqvfx Result EncounterGeneric External Data ProviderNOMS External Department UnsolicitedStart: 04-16-2024 End: 45-54-6516fvdjurraytEMQRJ FAZIONot AvailableStart: 04-16-2024 End: 73-18-6438Ebsjrex encounter procedureCorey Roopa DO Work Phone: [facility] Work Phone: Start: 04-16-2024 End: 72-19-7759Ilftwqkg preventive med est patient 18-39 yrsCorey Roopa DO Work Phone: [facility] BCP OBComment on above:Well woman exam with routine gynecological examStart: 04-15-2024 End: 07-45-6566Elratl follow up visit related to original Edgardo HERNANDEZ Work Phone: [facility] CenterComment on above:Postoperative surgical complication involving genitourinary system associated with genitourinary procedure, unspecified complication (Primary Dx); Post-op pain; Sweating profusely; Menopausal symptoms; Nausea and vomiting, unspecified vomiting typeStart: 04-08-2024 End: 99-27-4328Yuacjywef encounterMaleonora Ku [facility]ATIONProMedica [facility] On[facility], A [facility] Centertart: 04-08-2024 End: 49-29-6457Jrkqqrwuht and management of inpatientDaconstantine Melton DO Work Phone: [facility] - GEN 6 AcuteComment on above:Postoperative surgical complication involving genitourinary system associated with genitourinary procedure, unspecified complication (Primary Dx) Start: 04-02-2024 End: 33-38-3125zyrbeybkmgRTGXU FAZIONot AvailableStart: 04-02-2024 End: 53-23-0937Wrwktp outpatient visit 10 minutesCorey Roopa DO Work Phone: [facility] BCP OBComment on above:Visit for wound check; Yeast infectionStart: 04-01-2024 End: 78-87-1195Fihloy Martin HERNANDEZ Work Phone: [facility] of [facility] CenterComment on above:S/P bilateral salpingo-oophorectomy Post-op pain (Primary Dx)Start: 03-25-2024 End: 93-43-4169Cfxmdlj encounter statusMet25 Wolf Streettart: 03-25-2024 End: 42-02-5929Crxwtx Michelle Martinez MD Work Phone: [facility] A [facility] of [facility] CenterComment on above:Preop testing (Primary Dx); Bilateral ovarian cystsStart: 03-21-2024 End: 00-85-9213Jgwrmbfco encounterMundo Martinez MD Work Phone: [facility] A [facility] of [facility] CenterComment on above:Other (Surgery questions)Start: 03-21-2024 End: 63-23-0274ymxgbrtgfxYhuqLuis Barth APRN.CNP Work Phone: Neurology [facility] [place] FHCComment on above:Intractable chronic migraine without aura and without status migrainosus (Primary Dx)Start: 03-21-2024 End: 89-23-3935Wedqsxlyndjz consultation with patientKoli Green AUTO PAINTER.NURSE'S AIDES TEACHER Work Phone: [facility] Hospitaltart: 03-20-2024 End: 73-95-0895Nughzs outpatient new 45 minutesVincent Peña DO Work Phone: [facility]/Sleep MedicineComment on above:Asthma, unspecified asthma severity, unspecified whether complicated, unspecified whether persistent (Primary Dx); Bilateral ovarian cysts; Moderate asthma with acute exacerbation, unspecified whether persistent; Encounter for preoperative pulmonary examination; Pulmonary nodule; Gastroesophageal reflux disease, unspecified whether esophagitis presentStart: 03-20-2024 End: 14-96-6539Mbndtysmcvub stateMundo Martinez MD Work Phone: [facility] Hospitaltart: 03-20-2024 End: 78-92-7609Uzihpw Michelle Martinez MD Work Phone: [facility] Oncology, A Department of [facility] Medical CenterComment on above:Bilateral ovarian cysts (Primary Dx); Moderate asthma with acute exacerbation, unspecified whether persistent; Encounter for preoperative pulmonary examinationAcute cough [R05.1] (Primary Dx) Start: 03-19-2024 End: 30-96-0158Eawviu Michelle Martinez MD Work Phone: [facility] Oncology, A [facility] of [facility] CenterComment on above:Bilateral ovarian cysts (Primary Dx); Preop testingStart: 03-19-2024 End: 70-13-4120Eskhhcm encounter statusMundo Martinez MD Work Phone: [facility] SystemStart: 03-18-2024 End: 00-57-1972Fzwgaq outpatient new 60 minutesMundo Martinez MD Work Phone: [facility] Oncology, A [facility] of [facility] CenterComment on above:Cyst of right ovary (Primary Dx)Start: 03-06-2024 End: 79-82-4081Fhgelr outpatient visit 15 minutesCorey Roopa DO Work Phone: [facility] BCP OBComment on above:Cyst of right ovary; Pelvic pain in female; Pelvic peritoneal adhesions, femaleStart: 03-06-2024 End: 47-15-5222qnbloqqgceHIAMJ FAZIONot AvailableStart: 02-28-2024 End: 39-60-7922Fuzfkd flowsheetCorey Roopa DO Work Phone: [facility] BCP OBStart: 02-28-2024 End: 81-67-0653Tfbrhb flowsheetCorey Roopa DO Work Phone: [facility] BCP OBStart: 02-28-2024 End: 20-80-8955krrqjwthptOVPZJ FAZIONot AvailableStart: 02-28-2024 End: 11-50-3690Zpbsxq outpatient visit 15 minutesCorey Roopa DO Work Phone: [facility] BCP OBComment on above:Pelvic pain in female; Complex ovarian cystStart: 02-26-2024 End: 18-51-2047Hjphzqnjg encounterLamont Blair MD Work Phone: [facility] CI FMStart: 02-22-2024 End: 65-02-3490Aqaqdmybg encounterSagar Barth APRN.CNP Work Phone: Neurology [facility] FHCComment on above:Insurance Authorization (Zolmitriptan)Start: 02-19-2024 End: 34-64-8828Ptyxlswuc Result EncounterGeneric External Data ProviderNOMS External Department UnsolicitedStart: 02-19-2024 End: 87-99-5969Fjrfsabiw Result EncounterGeneric External Data ProviderNOMS External Department UnsolicitedStart: 02-16-2024 End: 05-76-3652eddhiqkmsjNjfcrky J DittyFacility:[facility] Centertart: 02-09-2024 End: 84-54-5085Dudtrn outpatient visit 25 minutesLamont Blair MD Work Phone: [facility] CWM FMComment on above:Generalized abdominal pain (Primary Dx); Intractable nausea and vomiting; Mild persistent asthma with (acute) exacerbation (CMS/HCC)Start: 02-09-2024 End: 69-34-2173myywrorqhaAPLU NADERERNot AvailableStart: 01-31-2024 End: 12-46-6239Vixbbgjut Result EncounterGeneric External Data ProviderNOMS External Department UnsolicitedStart: 01-31-2024 End: 19-52-8105Hezwjcjdy Result EncounterGeneric External Data ProviderNOMS External Department UnsolicitedStart: 01-29-2024 End: 18-53-6313Iuussopxr encounterSagar Barth APRN.CNP Work Phone: Neurology [facility] FHtart: 01-24-2024 End: 09-21-5966DzdxiwYuli Blair MD Work Phone: [facility] CWM FMComment on above:COVID-19Start: 01-23-2024 End: 15-06-8874Pcpbli Christina Blair MD Work Phone: [facility] CWM FMStart: 01-23-2024 End: 07-57-2663Opptmk Christina Blair MD Work Phone: [facility] CWM FMStart: 01-23-2024 End: 23-22-0576Nnviqc outpatient visit 25 minutesLamont Blair MD Work Phone: [facility] CWM FMComment on above:Mild persistent asthma with (acute) exacerbation (CMS/HCC) (Primary Dx); Generalized edema; SOB (shortness of breath) on exertionStart: 01-23-2024 End: 33-33-8881htntflxzhhFHOF NADERERNot AvailableStart: 01-22-2024 End: 27-20-5342Wtpfnut encounter Juan J Shields APRN.CNP Work Phone: NeurologyComment on above:Chronic migraine without aura, with intractable migraine, so stated, with status migrainosus (Primary Dx) Start: 01-22-2024 End: 71-69-0024fpcpfuqdfwVyegbmgp Main Chair 1 Work Phone: NeurologyComment on above:Chronic migraine without aura, with intractable migraine, so stated, with status migrainosus (Primary Dx); Intractable chronic migraine without aura and with status migrainosusStart: 01-20-2024 End: 02-59-6985UebimbNact Naderer MD Work Phone: [facility] FMComment on above:Pain, dentalStart: 01-19-2024 End: 36-82-2786yywhhcxpyuLogbrwhb Main Chair 5 Work Phone: NeurologyComment on above:Chronic migraine without aura, with intractable migraine, so stated, with status migrainosus (Primary Dx); Intractable chronic migraine without aura and with status migrainosusStart: 01-17-2024 End: 30-82-0246rsndoanskhIeoymjzf Main Chair 6 Work Phone: NeurologyComment on above:Chronic migraine without aura, with intractable migraine, so stated, with status migrainosus (Primary Dx); Intractable chronic migraine without aura and with status migrainosusStart: 01-16-2024 End: 19-24-0491tbmoxejnlwKxtf Tab SEO Work Phone: Neurology [facility] [place] FHCComment on above:Please helpStart: 01-09-2024 End: 48-70-5074Txwazh Christina Blair MD Work Phone: [facility] FMStart: 01-09-2024 End: 02-18-1486Olglzp Christina Blair MD Work Phone: [facility] FMStart: 01-09-2024 End: 38-52-3229Iuumfg outpatient visit 25 minutesLamont Blair MD Work Phone: [facility] FMComment on above:Mild persistent asthma without complication (CMS/HCC) (Primary Dx); Class 3 severe obesity due to excess calories without serious comorbidity with body mass index (BMI) of 50.0 to 59.9 in adult (CMS/HCC); Fatigue, unspecified type; Mixed bipolar I disorder (CMS/HCC); Chronic migraine without aura without status migrainosus, not intractable (CMS/HCC); Pain, dentalStart: 01-09-2024 End: 21-77-7771anhaplpthjWUUO SUKHRMaia AvailableStart: 01-05-2024 End: 24-06-7227exhwqrnnxtBzrtfjtk Main Chair 8 Work Phone: NeurologyComment on above:Intractable chronic migraine without aura and without status migrainosus (Primary Dx)Start: 12-11-2023 End: 16-98-7771Xdctah flowsheetCorey Roopa DO Work Phone: NOWE BCP OBStart: 12-11-2023 End: 43-80-6312Xvuxmi flowsheetCorey Roopa DO Work Phone: NOKQ BCP OBStart: 12-11-2023 End: 36-69-1152qindggolcePZKVO FAZIONot AvailableStart: 12-05-2023 End: 19-44-0431urqujbkejsUscuh J Stiffler APRN.NURSE'S AIDES TEACHER Work Phone: NeurologyComment on above:Intractable chronic migraine without aura and without status migrainosus (Primary Dx)Start: 12-05-2023 End: 73-31-4517Qemvykyqhqpa consultation with Brendan Shabazz APRN.NURSE'S AIDES TEACHER Work Phone: NeurologyStart: 11-15-2023 End: 16-03-8354Muaofi Christina Blair MD Work Phone: [facility] FMStart: 11-15-2023 End: 90-30-1237Kpffrz Christina Blair MD Work Phone: [facility] FMStart: 11-15-2023 End: 69-13-2703Nmmvex outpatient visit 15 minutesLamont Blair MD Work Phone: [facility] FMComment on above:Acute bronchitis due to other specified organisms (Primary Dx); Mixed bipolar I disorder (CMS/HCC)Start: 11-15-2023 End: 40-00-1071mnhtnsntpbIBOX NADERERNot AvailableStart: 11-10-2023 End: 92-53-3963PtvrwzEykqplnRandy Lepe PA-C Work Phone: NeurologyComment on above:Refill RequestStart: 11-06-2023 End: 34-44-8819Bglaad Jose Maria Mustafa NP Work Phone: [facility] FMComment on above:Severe persistent asthma without complication (CMS/HCC)Start: 10-13-2023 End: 79-81-5041yxjtsydynvOahxlaad Main Chair 8 Work Phone: NeurologyComment on above:Intractable chronic migraine without aura and without status migrainosus (Primary Dx)Start: 10-10-2023 End: 58-97-6537Fqrdqj flowsLou Blair MD Work Phone: [facility] FMStart: 10-10-2023 End: 79-06-2624Fsmwrq flowsLou Blair MD Work Phone: [facility] FMStart: 10-10-2023 End: 94-72-4439Gmmibw outpatient visit 15 minutesLamont Blair MD Work Phone: [facility] FMComment on above:Acute bronchitis due to other specified organisms (Primary Dx); Mild persistent asthma with (acute) exacerbation (CMS/HCC)Start: 10-10-2023 End: 46-18-3470yylcwuefciOJNO NADERERNot AvailableStart: 09-25-2023 End: 32-95-1804kfeobaijfwJLWGP FAZIONot AvailableStart: 09-19-2023 End: 19-86-8686Yktfcnp encounter Malina Barth APRN.CNP Work Phone: Neurology [facility] [place] FHCComment on above:Intractable chronic migraine without aura and without status migrainosus (Primary Dx)Start: 08-18-2023 End: 40-86-8065Xfonege encounter procedureCurtis Lepe PA-C Work Phone: NeurologyComment on above:Intractable chronic migraine without aura and without status migrainosus (Primary Dx); Psychogenic nonepileptic seizureStart: 20-31-8070ytdwajixjeWbiyLuis Barth APRN.CNP Work Phone: [facility]Start: 39-41-2716Urxgsecgkd hospital visit by Randolph Barth APRN.CNP Work Phone: Neurology Headache [place] FHCComment on above:Hospital visitStart: 35-48-6164wixhvhqnbnGpatLuis Barth APRN.CNP Work Phone: Neurolog Headache [facility] HospitalCComment on above:InjectionStart: 07-10-2023 End: 34-18-8531fuwdsydybaZgubLuis Barth APRN.CNP Work Phone: Neurology Headache [place] FHCComment on above:Intractable chronic migraine without aura and without status migrainosus (Primary Dx)Start: 07-10-2023 End: 87-99-4687Zvrmhkuhdfip consultation with Aditya Barth APRN.CNP Work Phone: Neurolog [facility]ache [place] FHCStart: 78-71-3187vogabuaijtObhelVarsha Shabazz APRN.CNP Work Phone: NeurologyComment on above:ConcernHeadacheStart: 04-14-2023 End: 06-35-7067kwizdwfrhrTphocspw Main Chair 7 Work Phone: NeurologyComment on above:Chronic migraine without aura, with intractable migraine, so stated, with status migrainosus (Primary Dx); Intractable chronic migraine without aura and with status migrainosusStart: 04-14-2023 End: 99-88-9777Aswnwog encounter procedureSuzan Ivey APRN.CNP Work Phone: NeurologyComment on above:Intractable chronic migraine without aura and with status migrainosus (Primary Dx); Intractable chronic migraine without aura and without status migrainosusStart: 52-36-0578Aobnwentg encounterSagar Barth APRN.CNP Work Phone: NeurologyComment on above:Appointment (Patient currently receiving infusions for headache. She is interested in learning about reboot program. Please schedule patient for evaluation if appropriate to proceed.)Start: 04-13-2023 End: 40-25-4245gtqscuaaneUgktxlrh Main Chair 7 Work Phone: NeurologyComment on above:Chronic migraine without aura, with intractable migraine, so stated, with status migrainosus (Primary Dx); Intractable chronic migraine without aura and with status migrainosusStart: 04-12-2023 End: 52-19-1651Cizoqww encounter Frank Ivey APRN.CNP Work Phone: NeurologyComment on above:Intractable chronic migraine without aura and with status migrainosus (Primary Dx)Start: 04-12-2023 End: 11-21-4709jmsbvtowqwHscciltk Main Chair 7 Work Phone: NeurologyComment on above:Chronic migraine without aura, with intractable migraine, so stated, with status migrainosus (Primary Dx); Intractable chronic migraine without aura and with status migrainosusStart: 40-81-1362Yyqhufwua encounterAngely Cotton RN Work Phone: [facility] DeliveryComment on above: Insurance Authorization (Aimovig 70MG/ML auto-injectors/)Start: 65-71-5157Hvjfvd Sagar Barth APRN.CNP Work Phone: Neurology [facility] [place] FHCComment on above:Refill RequestInfusion (HEADACHE INFUSIONS)Start: 16-54-4707LzkbktNrqljLul Shabazz APRN.CNP Work Phone: NeurologyComment on above:Refill RequestStart: 11-11-2022 End: 04-58-1324wdgwyufbqfRlkkjzcp Main Chair 8 Work Phone: NeurologyComment on above:Intractable chronic migraine without aura and with status migrainosus (Primary Dx)Start: 11-10-2022 End: 86-10-0600nuwujdguklPgcnxVarsha Shabazz APRN.CNP Work Phone: NeurologyComment on above:Intractable chronic migraine without aura and with status migrainosus (Primary Dx)Nerve blockStart: 84-45-9303Vquzahred encounterSuzan Ivey APRN.CNP Work Phone: NeurologyComment on above:InfusionStart: 11-10-2022 End: 22-54-8927Vfvohxwdlqxy consultation with Brendan Shabazz APRN.CNP Work Phone: [facility]Start: 79-15-1951gpfcdjmhmq Suzan Ivey APRN.CNP Work Phone: NeurologyComment on above:BotoxStart: 34-60-5717J-mail encounter from caregiverSuzan Ivey APRN.CNP Work Phone: [facility]Start: 72-62-2500Wedsfkdbw encounterAngely Cotton RN Work Phone: [facility] Home DeliveryComment on above: Insurance Authorization (Zomig 5MG nasal spray/)Start: 78-02-8261yzsggzrpihMbycLuis Brath APRN.CNP Work Phone: [facility] INDEPENDENCEComment on above:My apt Fridaystart: 48-90-1822slobduwqmuTkkgJuanjose Barth APRN.CNP Work Phone: [facility] [place] [facility]HCStart: 05-58-0656Yjinlvx encounter procedureSagar Barth APRN.CNP Work Phone: NEUR [facility]AC[facility] INDEPENDENCEComment on above: AppointmentStart: 08-31-2022 End: 49-10-1897acomixbcycTvtyJuanjose Barth APRN.CNP Work Phone: NeurologyComment on above:Chronic migraine w/o aura, not intractable, w/o stat migr (Primary Dx)Start: 08-31-2022 End: 59-02-2497Rolayqhzuswo consultation with Aditya Barth APRN.FADY Work Phone: [facility]INStart: 12-70-1543tnoxadgwed Sagar Barth APRN.NURSE'S AIDES TEACHER Work Phone: [facility] INDEPENDENCEComment on above:Pain Start: 08-08-2022 End: 31-70-5603ahdeckjkaeKtrtsox Samples Work Phone: NeurologyComment on above:Intractable chronic migraine without aura and with status migrainosus (Primary Dx)Start: 08-08-2022 End: 92-98-4146Smqxxlclbpdu consultation with Jodi Borrego MD Work Phone: [facility] MAINStart: 33-11-2804skjxyqusej Jesse Samples Work Phone: NeurologyComment on above:Name of medicationStart: 07-28-2022 End: 97-68-2207nasmsqfdycKadqnqnv Main Chair 8 Work Phone: NeurologyComment on above:Intractable chronic migraine without aura and with status migrainosus (Primary Dx)Start: 07-21-2022 ambulatoryDR ZAY ROOPA .Facility:R6Rttdk: 74-69-4866Fytvzhxyr for other preprocedural examinationDR ZAY ROOPA .[facility]art: 07-12-2022 End: 36-20-8858yyliwvjnoyVS ZAY ROOPA .Facility:P4Btgjr: 07-12-2022 End: 98-82-6305Vynepqdwh for other preprocedural examinationDR ZAY ROOPA . Facility:O7Mthha: 97-58-1434xewdczuhgiWM-C SUZAN Paytoncility:[facility] Start: 98-50-0134Cjfcyijix encounterSagar Barth APRN.CNP Work Phone: NeurologyComment on above:Appointment (infusion)Start: 06-20-2022 End: 58-86-1942akffviixyrFMARF SAYFacility:F1Naqre: 06-19-2022 End: 66-75-4730xuiokrdkgiKGJYTH RODRIGUEZ .Facility:V1Obvcq: 54-19-8937Wlxhgmdmj to establishmentStephen Samples Work Phone: NeurologyComment on above:AdmissionStart: 06-13-2022 ambulatoryStephen Samples Work Phone: [facility] IIIStart: 06-11-2022 End: 68-22-7306ivhlsxhbqxOJWIWJQ RAPP .Facility:X9Kjrbs: 06-08-2022 End: 58-52-7993mdizisbnjfDC CHELO PAULINO .Facility:Y6Hibku: 06-07-2022 ambulatoryStephen Samples Work Phone: NeurologyComment on above:MigrainesStart: 05-23-2022 End: 54-76-2502hhkbkyhyfbXLAQDGV M MANONFacility:N6Mqrqm: 05-08-2022 End: 23-58-8188gzmaatcjknPVPZQV DIAB .Facility:H2Hpgew: 03-31-2022 End: 14-38-5270apsudfuynvXF DERIK R DANIELSFacility:O3Bpbsl: 01-14-2022 End: 90-44-1053cmsfywzxqyNZWDQJC D KATKOFacility:V0Hqzqc: 01-07-2022 End: 79-91-1946whlwzfystlKYBWB PARKERFacility:N0Knohc: 91-27-8246hefqrqcknm Jesse Samples Work Phone: NeurologyComment on above:MedicationStart: 12-03-2021 End: 74-65-4839Yvdowoz encounter procedureStephen Samples Work Phone: NeurologyComment on above:Chronic migraine w/o aura, not intractable, w/o stat migr (Primary Dx)Start: 11-10-2021 End: 81-42-7737kfclblirvkQleuLibia Saldaña PA-C Work Phone: NeurologyComment on above:Seizure-like activity (HCC) (Primary Dx)Start: 11-10-2021 End: 18-27-9232Izqecchfygdo consultation with Farideh Saldaña PA-C Work Phone: [facility]INStart: 08-29-4954rictibthiysilas Dolan MD, PhD Work Phone: [facility]Start: 61-40-4794Fpqfbvv encounter Mj Dolan MD, PhD Work Phone: NeurologyComment on above:Request Veido appointment Start: 29-44-2437epieittonsXlhxz Ying MD, PhD Work Phone: [facility]INStart: 22-06-6496Xraprls encounter Mj Dolan MD, PhD Work Phone: NeurologyComment on above:AppointmentStart: 11-08-2021 Telephone encounterTyrone Dolan MD, PhD Work Phone: NeurologyComment on above:OrdersStart: 11-04-2021 End: 93-82-3098cdljrrpsdkZYPDH PARKERFacility:T9Epuoo: 10-29-2021 End: 36-75-6013silznvwrdxKbris Ying MD, PhD Work Phone: NeurologyComment on above:Psychogenic nonepileptic seizure (Primary Dx); Spells of trembling; Chronic intractable headache, unspecified headache typeStart: 10-29-2021 End: 63-72-9925Vuxsafuvzpfn consultation with Alvaro Dolan MD, PhD Work Phone: [facility]INStart: 51-53-7987Xqtvybv encounter Becka Storey MD Work Phone: NeurologyComment on above:Seizure-like activity (HCC) (Primary Dx)Start: 10-19-2021 End: 99-11-2838Nmcupysccm and management of [facility] Systemtart: 10-19-2021 End: 30-35-7552Ivvexgemsl and management of inpatientLucila Mota MD Work Phone: STVZ 1B Neuro ICUStart: 10-19-2021 End: 48-03-1330iictjdrpikUXKBCY H FAWWADFacility:G6Xydlp: 10-07-2021 End: 56-01-5969sniuwzwjzlZH ZAYVikas GREERO .Facility:E5Lfbvh: 10-06-2021 End: 67-77-5266hhrbosmurwJYFLVZV D KATKOFacility:F3Rfbnb: 10-03-2021 End: 75-25-4692zfucblqxpqBFFDS PARKERFacility:H3Qskcn: 10-01-2021 End: 11-08-6956Ajwxeldqds and management of inpatientDR DERIK WEBERFacility:H1 Start: 32-07-4986Zhviskdka for preprocedural laboratory examinationDR ZAY BLAS .[facility] HospitalStart: 09-29-2021 End: 21-07-6119zeramahrwhXN ZAY GREERO .Facility:Y1Tzden: 09-29-2021 End: 22-81-3204Oommbzidy for preprocedural laboratory examinationDR ZAY GREERO .Facility:M2Tqtun: 09-21-2021 End: 61-17-9171dveqekamneDS DERIK WEBERFacility:O0Orian: 09-14-2021 End: 28-84-3079twghqmwiilWJ DERIK WEBERFacility:P3Ycidg: 08-14-2021 End: 76-26-4730kctpoihlcnGZIJUZ RAUCHFacility:R6Mhdnv: 08-14-2021 End: 81-63-0653yihawevdujGCTQXE RAUCHFacility:F9Jbkoq: 12-24-2020 End: 75-97-7886Lpkmgkwcp department patient visitDERIK KENYONdrakevikas [facility] Hospitaltart: 12-24-2020 End: 41-80-4612Rimymfwsl department patient visitJosetamela Joshua DO Work Phone: [facility] EDComment on above:Migraine without status migrainosus, not intractable, unspecified migraine type (Primary Dx)Start: 02-18-2020 End: 58-99-7996Fvzerqxpm encounterImad Cordelia Work Phone: NeurologyComment on above:Future Appointment ([place], [place], [place]) Procedures DateProcedureProcedure DetailPerforming ClinicianStart: 82-42-5509Nptkt depression screening assessmentAssumpta Raul AUTO PAINTER-NURSE'S AIDES TEACHER Work Phone: Start: 87-15-4882Xbhct depression screening assessment Corine Gold MD Work Phone: Start: 91-78-6757Wsoxb depression screening assessment Halima Johns AUTO PAINTER-NURSE'S AIDES TEACHER Work Phone: Start: 66-44-1663Aopvb dip stick/tablet rgnt non-auto w/o micrscpCorey Oropa DO Work Phone: Start: 12-71-0704Nvugl depression screening assessment Corine Gold MD Work Phone: Start: 42-41-6962DMX,APTIMA HPV,AGE GDLNCorey Roopa DO Work Phone: Start: 77-42-4936Hjkyeekyhfsll metabolic panelAnnetta Rodriguez MD Work Phone: start: 39-33-5749Bzzbd s aureus methicillin resist amp probe tqJaziel Crump MD Work Phone: Start: 82-68-2367Muovc metabolic panel calcium total Katina Debra Mckayla DO Work Phone: start: 79-63-6117Bnj bact xcpt urine blood/stool aerobic Bárbara Toussaint MD Work Phone: Start: 63-83-4453Wa abdomen & pelvis w/contrast materialJohnirene Velazquez MD Work Phone: Start: 04-08-2024 End: 14-58-0515Aehon metabolic panel calcium totalDaniel Compa Melton DO Work Phone: [phone]: 62-23-0863Pmesiem function panelYordy Melton DO Work Phone: [phone]: 37-66-4690Hntbp dip stick/tablet rgnt auto w/o microscopyDaconstantine Melton DO Work Phone: Start: 05-78-2701Nwehfxa bacterial quanttative colony count urineJosemaj Velazquez MD Work Phone: Start: 12-67-3437Fnoisocksh exam chest single view Rohan Velazquez MD Work Phone: Start: 13-58-8405WDYT/FLU A+B/RSV BY NAAT/MOLECULAR (M4RT COLLECTION TUBE)Rohan Velazquez MD Work Phone: Start: 42-22-4150Vmu routine ecg w/least 12 lds trcg only w/o i&Cheryl Velazquez MD Work Phone: Start: 04-08-2024 End: 59-04-0126Yzqyr count complete auto&auto difrntl wbcMotim Dixon MD Work Phone: Start: 04-08-2024 End: 51-82-9154Ifoiqvn bacterial blood aerobic w/id isolatesDaconstantine Melton DO Work Phone: Start: 32-29-6989Yphnq depression screening assessment Svetlana HERNANDEZ Work Phone: Start: 18-39-6167Ablbbana screenMetro 3Start: 67-49-3854Wvtzp typing serologic Gabriela Martinez MD Work Phone: Start: 68-00-8900RPBWZVVG Tyson Martinez MD Work Phone: Start: 66-47-6672Jew routine ecg w/least 12 lds trcg only w/o i&Verónica Martinez MD Work Phone: Start: 92-37-1651XIKUGGGIQ FUNCTION TESTSopal Peña DO Work Phone: Start: 54-52-9933JX PELVIS W/ TRANSVAGINALGeneric External Data ProviderStart: 71-82-0263Pqpartnk identified in Urine by Culture Generic External Data ProviderStart: 15-27-9120Qyfzc depression screening assessmentMundo Martinez MD Work Phone: Start: 24-72-0078Rayez depression screening assessment Tyrone Dolan MD, PhD Work Phone: Start: 72-64-7349RZG VIDEO MONITORINGMaanupama Perez AUTO PAINTER - NURSE'S AIDES TEACHER Work Phone: Start: 73-10-7785KWTAB METABOLIC PANEL W/ REFLEX TO MG FOR LOW KChan Rikki Mota MD Work Phone: Start: 18-87-7952Kcsol count complete auto&auto difrntl wbcMaanupama Perez AUTO PAINTER - NURSE'S AIDES TEACHER Work Phone: Start: 75-05-5910YOJPMPRE PLATELET FRACTIONMaanupama Perez AUTO PAINTER - NURSE'S AIDES TEACHER Work Phone: Start: 54-65-6053Pykrb of lactateMaanupama Perez AUTO PAINTER - NURSE'S AIDES TEACHER Work Phone: Start: 31-68-5218Iwx routine ecg w/least 12 lds w/i&r Lo Perez AUTO PAINTER - NURSE'S AIDES TEACHER Work Phone: Start: 97-82-3205Orl brain brain stem w/o w/contrast materialMaanupama Perez AUTO PAINTER - NURSE'S AIDES TEACHER Work Phone: Start: 91-82-9874BWJKXODLXMP CARE EVALUATION ONLY Lo Perez AUTO PAINTER - NURSE'S AIDES TEACHER Work Phone: Start: 60-47-6476Naevmyoqp of Bilateral Fallopian Tubes, Open ApproachINGRID BRICE .Start: 40-46-7977Athzwkndu of Uterus, Open ApproachINGRID BRICE .Start: 19-59-9978Whulw count complete auto&auto difrntl wbcKeven Ching DO Work Phone: Start: 46-86-6691Sq head/brain w/o contrast material Keveneduardo Ching DO Work Phone: Plan of Treatment DateCare ActivityDetailAuthorStart: 15-74-5289Igytg BMI ScreeningAdult BMI ScreeningGood Samaritan Hospital SystemStart: 14-23-5791Yzpsakfsrn ScreeningDepression ScreeningSelect [facility]ca [facility] SystemStart: 17-56-0150Vajtbuq ScreeningTobacco ScreeningSelect Medical Specialty [facility]ronca [facility] SystemStart: 75-86-0429Yahbr BMI ScreeningAdult BMI ScreeningSelect [facility] SystemStart: 25-40-3239Bvzfqtn ScreeningTobacco ScreeningSelect [facility]ca [facility] SystemStart: 45-51-1655Zhcbr BMI ScreeningAdult BMI ScreeningSelect [facility] SystemStart: 62-20-4087Lewamjvcxb ScreeningDepression ScreeningGood Samaritan Hospital SystemStart: 06-12-1906Whkdqfj ScreeningTobacco ScreeningGood Samaritan Hospital SystemStart: 85-98-9014Dvshp BMI ScreeningAdult BMI ScreeningSelect Medical Special[facility]ca [facility] SystemStart: 52-50-2990Fyybc BMI ScreeningAdult BMI ScreeningSelect [facility] SystemStart: 94-94-9730Xlieqep ScreeningTobacco ScreeningGood Samaritan Hospital SystemStart: 88-48-9232SMvI,Tdap and Td Vaccines (7 - Td or Tdap)DTaP,Tdap and Td Vaccines (7 - Td or Tdap)[facility] Start: 84-43-2057MMaD/Tdap/Td vaccine (7 - Td or Tdap)DTaP/Tdap/Td vaccine (7 - Td or Tdap)[facility] CENTERStart: 93-71-1098Xofia microalbumin profile [facility] Hospitaltart: 53-19-9565Wftzd BMI ScreeningAdult BMI ScreeningGood Samaritan Hospital SystemStart: 26-34-6325Awkljkgtaz ScreeningDepression ScreeningGood Samaritan Hospital SystemStart: 56-89-2460Hjqcmqc ScreeningTobacco ScreeningSelect [facility] SystemStart: 95-15-2061Ltxtfai ScreeningTobacco ScreeningSelect [facility] SystemStart: 13-30-8389Iwznu BMI ScreeningAdult BMI ScreeningProRegency Hospital [facility] Westca [facility] SystemStart: 55-23-4965Vntxcof ScreeningTobacco ScreeningParma [facility] Start: 78-15-7468Dtzhr BMI ScreeningAdult BMI ScreeningSelect [facility] Start: 50-61-0089Ubeqrah ScreeningTobacco ScreeningSelect [facility] SystemStart: 56-17-3691Eoqtl BMI ScreeningAdult BMI ScreeningSelect [facility] SystemStart: 93-60-1390Bdzscdkcoa ScreeningDepression ScreeningSelect [facility] SystemStart: 63-13-0515Ooqrtra ScreeningTobacco ScreeningSelect [facility] SystemStart: 98-53-6747Dounh BMI ScreeningAdult BMI ScreeningSelect [facility] SystemStart: 62-58-6064Tornf BMI ScreeningAdult BMI ScreeningSelect [facility] SystemStart: 80-91-8049Ufqtobajzv ScreeningDepression ScreeningGood Samaritan Hospital SystemStart: 38-73-1163Rleiaxf ScreeningTobacco ScreeningGood Samaritan Hospital SystemStart: 96-34-4239Kzzhr BMI ScreeningAdult BMI ScreeningSelect [facility] SystemStart: 66-52-1195Alylfbp ScreeningTobacco ScreeningSelect [facility] Special[facility]ca [facility] SystemStart: 86-09-1544Bjcms BMI ScreeningAdult BMI ScreeningAtrium Health Uniontart: 30-75-8635Vgmyugn ScreeningTobacco ScreeningAtrium Health Uniontart: 03-25-2025 End: 60-19-1070Wpvhdiw encounter /03/2026 9:45 AM EST Office Visit [facility] [address] [place] [phone] Vincent Peña DO [address] [address] [facility]/Sleep MedicineStart: 55-91-2722Fxhxl BMI ScreeningAdult BMI Screening [facility] SystemStart: 71-41-0590Vpobkgj ScreeningTobacco Screening [facility] SystemStart: 08-70-4370Scupk BMI ScreeningAdult BMI Screening [facility] SystemStart: 33-01-3940Qcwwmyd ScreeningTobacco Screening [facility] SystemStart: 02-27-2025 End: 03-36-4711Hekumcoi Hobkbwt6602/27/2025 8:00 PM EST Clinical Support [facility] [address] [place] [id number] Corine Gold MD [address] [place] [address] [facility] DisordersStart: 01-30-2025 End: 54-35-3365Xxbviogb Axrfdkh9001/30/2025 8:00 PM EST Clinical Support [facility] [address] [place] [id number] Corine Gold MD [address] [place] [address] [facility] Sleep DisordersStart: 01-02-2025 End: 73-55-5485Rvrrjek encounter yxzrhgduc03/13/2025 11:15 AM EST Office Visit [facility] [address] [place] [phone] Corine Gold MD [address] [place] [address] [facility] MedicineStart: 12-17-2024 End: 22-76-8954Bewehkz encounter pdxkybcye78/28/2025 9:30 AM EDT Office Visit [facility] [address] [phone] Vincent Peña DO [address] [address] [facility] MedicineStart: 12-10-2024 End: 27-62-6101Tvipkho encounter /21/2025 2:30 PM EDT Office Visit [facility] [address] [place] [address] Corine Gold MD [address], [place], [place] [id number] [facility] MedicineStart: 12-10-2024 End: 84-94-8001Qahnwsbackdazfd 4 or more parameters with PAP titration Polysomnography 4 or more parameters with PAP titration Sleep Center Routine JUAN DAVID (obstructive sleepapnea) Expected: 12/10/2024 (Approximate), Expires: 12/10/2025[facility] SystemComment on above:Expected: 12/10/2024 (Approximate), Expires: 12/10/2025Start: 12-10-2024 End: 76-79-9958[facility] Routine JUAN DAVID (obstructive sleep apnea) Expected: 12/10/2024 (Approximate), Expires: 12/10/2025[facility] SystemComment on above:Expected: 12/10/2024 (Approximate), Expires: 12/10/2025Start: 12-10-2024 End: 42-46-4380ZNAT-CoV-2 (COVID-19) RNA [Presence] in Respiratory specimen by SAURABH with probe detectionSARS COV 2 (COVID-19) Microbiology Routine JUAN DAVID (obstructive sleep apnea) Expected: 12/10/2024 (Approximate), Expires: 03/12/2025[facility] Work Phone: Comment on above:Expected: 12/10/2024 (Approximate), Expires: 03/12/2025Start: 10-25-2024 End: 62-29-0973ygoxuugjgd88/05/2025 1:30 PM EDT Infusion Center Neurology [address] [place] [address] VyeptiNeurologyComment on above: VyeptiStart: 26-86-3359Hodowrule vaccinationGood Samaritan Hospital SystemStart: 10-15-2024 End: 25-44-5802Kzjpmyd encounter slpruebrg28/26/2025 8:10 AM EDT Office Visit [facility] BCP OB [address] [place] [address] Zay Blas, [address] [place] [address] NOMS BCP OBStart: 09-24-2024 End: 08-24-0508oyoghztwjv19/05/2025 10:00 AM EDT [facility] Neurology [address] [place] [address] Curtis Lepe PA-C [address] [place], [place] [phone] Head ache controlNeurologyComment on above:Head ache controlStart: 09-03-2024 End: 03-52-5379Httjxtm encounter /15/2025 10:20 AM EDT Office Visit [facility] BCP OB [address] [facility] [place] [place] [phone] Zay Blas, [address] [place] [address] ArrivedNOMS [facility] OBComment on above:ArrivedStart: 08-20-2024 End: 20-08-8119Tguuihh encounter esddbvchx45/01/2025 9:15 AM EDT Office Visit Neurology [address] [place] [address] Patricia Franco PA-C [address] [place] [address] INFUSIONDAY 3NeurologyComment on above:INFUSION DAY 3Start: 08-20-2024 End: 69-96-0411djplmwspzt14/01/2025 9:00 AM EDT Infusion Center Neurology [address] [place] [address] NON-DHE 3NeurologyComment on above: NON-DHE 3Start: 08-19-2024 End: 12-60-7983ikubvprfdk98/30/2025 9:00 AM EDT Infusion Center Neurology [address] [place] [address] NON-DHE 2NeurologyComment on above: NON-DHE 2Start: 08-19-2024 End: 22-84-0638Wnmkbzm encounter upoyitvps91/30/2025 9:00 AM EDT Office Visit Neurology [address] [place] [address] Raiza Shields APRN.NURSE'S AIDES TEACHER [address] [place] [address] Infusion dayNeurologyComment on above:Infusion dayStart: 08-02-2024 End: 33-37-9709Cngeqyg encounter axoefyxuv07/13/2025 11:00 AM EDT Office Visit Neurology [address] [place] [address] Curtis Lepe PA-C [address] [place] [address] INFUSION DAY 1 - PT ARRIVES AT 10AMNeurologyComment on above:INFUSION DAY 1 - PT ARRIVES AT 10AMStart: 08-02-2024 End: 27-54-4361fmjfriqxak93/13/2025 10:00 AM EDT Infusion Center Neurology [address] [place] [address] NON-DHE 1 per PSNeurologyComment on above:NON-DHE 1 per PSStart: 07-25-2024 End: 63-43-4557vyqyiunllq86/05/2025 1:00 PM EDT Infusion Center Neurology [address] [place] [address] VyeptiNeurologyComment on above: VyeptiStart: 07-01-2024 End: 91-57-8541Sjtqzdh encounter lvitrjolm58/12/2025 8:30 AM EDT Office Visit [facility] BCP OB [address] [facility] [place] [phone] Zay Blas, DO [address] [facility] [place] [address] Juan M RAJPUT OBComment on above:ArrivedStart: 06-10-2024 End: 81-16-7441JSC ISOLATION AND STORAGEDNA ISOLATION AND STORAGE Lab Routine Family history of genetic disorder Expected: 06/10/2024 (Approximate), Expires: 06/10/2025[facility] FoundationComment on above:Expected: 06/10/2024 (Approximate), Expires: 06/10/2025Start: 06-10-2024 End: 04-59-3122JZYSVPVM SPECIMEN LABEL- REQUIRED FOR INHOUSE GENETIC TESTING GENETICS SPECIMEN LABEL- REQUIRED FOR INHOUSE GENETIC TESTING Lab Routine Family history of geneticdisorder Expected: 06/10/2024 (Approximate), Expires: 06/10/2025[facility] Work Phone: comment on above:Expected: 06/10/2024 (Approximate), Expires: 06/10/2025Start: 06-06-2024 End: 37-15-4810Nvesgslaazsi consultation with fgxyesr1906/06/2024 4:30 PM EDT Telemedicine [facility] [address] [place] [address] [place] [address] Corine Gold MD [address] [place] [address] [facility] MedicineStart: 05-28-2024 End: 21-64-1685Jqngrzy encounter nnahysine36/08/2025 1:00 PM EDT Office Visit [facility] Pulmonary/Sleep Medicine [address] [address] Vincent Peña DO [address] [address] [facility] Pulmonary/Sleep MedicineStart: 05-14-2024 End: 91-33-2587Aoukhsg encounter vzdyrtagq69/25/2025 9:00 AM EDT Office Visit Joie Antonio [facility] - Medical Oncology [address] [place] [phone] Svetlana Ye PA [address] [place] [address] Joie Antonio [facility] - Medical OncologyStart: 05-03-2024 End: 28-11-6021xxyfqzxhbq09/14/2025 9:30 AM EDT [facility] Neurology [address] [place] [address] Curtis Lepe PA-C [address] [place] [address] Head aches adding something elseNeurologyComment on above:Head aches adding something elseStart: 05-02-2024 End: 10-48-4582fehhwgwarv63/13/2025 2:30 PM EDT Infusion Center Neurology [address] [place] [address] vyepti infusionNeurologyComment on above:vyepti infusionStart: 04-30-2024 End: 32-97-9405Zwlokvh encounter fhttaulyx63/11/2025 9:00 AM EDT Office Visit Joie Antonio [facility] - Medical Oncology [address] [place] [phone] Svetlana Ye PA [address] [place] [address] [facility] Medical OncologyStart: 04-25-2024 End: 54-78-9636Evnbdto encounter cjyfperdk66/06/2025 1:00 PM EST Office Visit [facility] [address] [facility] [place] [address] [place] [address] Corine Gold MD [address] [place] [address] [facility] Family MedicineStart: 04-16-2024 End: 63-75-8536Grpxhdm encounter nwykwsdpy24/25/2025 8:30 AM EST Office Visit [facility] [address] [place] [address] Zay Blas, [address] [place] [address] NOMS BCP OBStart: 04-15-2024 End: 39-38-5416Nwwwsbc encounter vkrelpvah03/24/2025 9:00 AM EST Office Visit [facility] Gynecology Oncology, A Department of [facility] [address] [place] [address] Svetlana Ye PA [address] [place] [address] [facility] Gynecology Oncology, A [facility]: 04-10-2024 End: 26-43-6384Nhbbxaz encounter gjdrvbkis15/19/2025 11:30 AM EST [facility] [address] [place] [phone] Svetlana Ye PA [address] [facility], [place] [phone] (Work) Joie Fernández Parke [facility] - Medical OncologyStart: 04-10-2024 End: 09-47-2444Azmyjjmcaubi / ancillary services jytxuusdhn05/19/2025 9:30 AM EST Ancillary Procedure [facility] [address] [place] [phone] NOMS BCP OBStart: 03-29-2024 End: 37-29-4393yfgfryzgji89/07/2025 1:30 PM EST Infusion Center Neurology [address] [place] [address] vyepti infusionNeurologyComment on above:vyepti infusionStart: 03-28-2024 End: 18-45-8369Upphbfzgp to same day surgery kbsilb7803/28/2024 9:00 AM EST - 03/28/2024 12:45 PM EST Surgery [facility] Surgery [address] [place] [phone] Mundo Martinez MD [address] [place] [address] DAVINCI LYSIS OF ADHESIONSHocking Valley Community Hospital SurgeryComment on above:DAVINCI LYSIS OF ADHESIONSStart: 03-28-2024 End: 48-56-8150CXXRGCO LYSIS OF ADHESIONSDAVINCI LYSIS OF ADHESIONS OVARIAN CYST BILATERAL 03/28/2024 9:00 AM [facility]: 03-28-2024 End: 57-63-1398SJYNLPC SALPINGO OOPHORECTOMYDAVINCI SALPINGO OOPHORECTOMY OVARIAN CYST BILATERAL 03/28/2024 9:00 AM [facility]: 29-47-0347Htdesgqgna hospital visit by /06/2025 9:00 AM EST Hospital Encounter [facility] Surgery [address] [place] [phone] Mundo Martinez MD [address] [place] [address] [facility] Surgery Start: 03-25-2024 End: 03-21-2776Vdbpvvv encounter /03/2025 2:15 PM EST [facility] On [address] [address]SjoQcsznn [facility] Start: 03-22-2024 End: 58-23-2324yopmbunmal39/31/2025 1:30 PM [facility] Infusion Center Neurology [address] [place] [address] vyepti infusionNeurologyComment on above:vyepti infusionStart: 03-20-2024 End: 44-67-0097NR Chest WO contrastCT chest without contrast Imaging Routine Moderate asthma with acute exacerbation, unspecified whether persistent Expected: 03/20/2024, Expires: 03/20/2025[facility] Work Phone: Comment on above:Expected: 03/20/2024, Expires: 03/20/2025Start: 02-28-2024 End: 88-73-7890KBO tumor markerAFP tumor marker Lab Routine Complex ovarian cyst Expected: 02/28/2024 (Approximate), Expires: 02/27/2025[facility] HealthcareComment on above:Expected: 02/28/2024 (Approximate), Expires: 02/27/2025Start: 02-28-2024 End: 95-49-7474JA 125CA 125 Lab Routine Complex ovarian cyst Expected: 02/28/2024 (Approximate), Expires: 02/27/2025NODE HealthcareComment on above: Expected: 02/28/2024 (Approximate), Expires: 02/27/2025Start: 02-28-2024 End: 34-31-4393Tyojusyfwixoblhb Ag [Mass/volume] in Serum or PlasmaCEA Lab Routine Complex ovarian cyst Expected: 02/28/2024 (Approximate), Expires: 02/27/2025[facility] HealthcareComment on above:Expected: 02/28/2024 (Approximate), Expires: 02/27/2025Start: 02-28-2024 End: 62-46-6345UHU, tumor markerHCG, tumor marker Lab Routine Complex ovarian cyst Expected: 02/28/2024 (Approximate), Expires: 02/27/2025[facility] Comment on above:Expected: 02/28/2024 (Approximate), Expires: 02/27/2025Start: 02-28-2024 End: 64-08-7697Yezbyaj dehydrogenase, isoenzymesLactate dehydrogenase, isoenzymes Lab Routine Complex ovarian cyst Expected: 02/28/2024 (Approximate), Expires: 02/27/2025[facility] Work Phone: comment on above:Expected: 02/28/2024 (Approximate), Expires: 02/27/2025Start: 02-28-2024 End: 01-61-4777JE PelvisUS Pelvis w/ TV Imaging Routine Pelvic pain in female Complex ovarian cyst Expected: 02/28/2024, Expires: 02/27/2025[facility] Comment on above:Expected: 02/28/2024, Expires: 02/27/2025Start: 02-28-2024 End: 84-99-1665Couvfgd encounter fzawnhnbq21/08/2025 11:10 AM EST Office [facility] [address] [place] [phone] Zay Blas DO [address] [facility] [place] [address] NOMS BCP OBStart: 02-22-2024 End: 51-37-0119Kgpbfln encounter okhydfhiv06/02/2025 11:15 AM EST Office Visit [facility] [address] [place] [address] Lamont Blair MD [address] [place] [address] NOMS [facility] FMStart: 02-09-2024 End: 87-91-3430KQ Abdomen and Pelvis WO and W contrast IVCT abdomen pelvis w and wo IV contrast Imaging Routine Generalized abdominal pain Intractable nausea and vomiting Expected: 02/09/2024, Expires: 02/08/2025[facility] Work Phone: Comment on above:Expected: 02/09/2024, Expires: 02/08/2025Start: 02-05-2024 End: 19-00-1840kpfuvgttgb81/16/2024 1:45 PM EST [facility] Neurology [facility] [address] [place] [address] Sagar Barth APRN.NURSE'S AIDES TEACHER [address] [facility] [place], [id number] MingrainsNeurology Headache [facility] Centeromment on above:MingrainsStart: 01-24-2024 End: 12-16-7045Nvmpuhl encounter xsrwwzjov24/04/2024 3:20 PM EST Office Visit [facility] OB [address] [place] [address] Zay Blas, DO [address] [place] [address] NOMS BCP OBStart: 01-23-2024 End: 24-13-6656Trvkn metabolic 1998 panel - Serum or PlasmaBasic metabolic panel Lab Routine Generalized edema Expected: 01/23/2024 (Approximate), Expires: 04/2024NODE HealthcareComment on above:Expected: 01/23/2024 (Approximate), Expires: 01/22/2025Start: 01-23-2024 End: 82-47-8481KFL W Auto Differential panel - BloodCBC and differential Lab Routine Generalized edema SOB (shortness of breath) on exertion Expected: 1 03/25/2023 (Approximate), Expires: 01/22/2025[facility] HealthcareComment on above: Expected: 01/23/2024 (Approximate), Expires: 01/22/2025Start: 01-23-2024 End: 06-13-6480Sidvanb function 2000 panel - Serum or PlasmaHepatic function panel Lab Routine Generalized edema SOB (shortness of breath) on exertion Expected: 01/23/2024 (Approximate), Expires: 01/22/2025[facility] HealthcareComment on above:Expected: 01/23/2024 (Approximate), Expires: 01/22/2025Start: 01-23-2024 End: 45-60-5558Gqwqkpummju peptide B [Mass/volume] in BloodB-type natriuretic peptide Lab Routine Generalized edema Expected: 01/23/2024 (Approximate), Expires: 01/22/2025[facility] HealthcareComment on above:Expected: 01/23/2024 (Approximate), Expires: 01/22/2025Start: 01-23-2024 End: 99-45-0721BA Chest 2 ViewsXR chest 2 views Imaging Routine Mild persistent asthma with (acute) exacerbation (CMS/HCC) Generalized edema SOB (shortness of breath) on exertion Expected: 01/23/2024, Expires: 01/22/2025[facility] Work Phone: Comment on above:Expected: 01/23/2024, Expires: 01/22/2025Start: 01-23-2024 End: 41-96-4851Xnbsuvw encounter procedureNOMS CWM FMComment on above:Arrived Start: 01-22-2024 End: 01-86-5927Kdgojgi encounter zaksjehum22/02/2024 2:30 PM EST Office Visit Neurology [address] [place] [address] Raiza Shields, AUTO PAINTER.NURSE'S AIDES TEACHER [address] [place] [address] Infusion Day #3NeurologyComment on above:Infusion Day #3Start: 01-22-2024 End: 80-87-2659airdudxxat27/02/2024 2:00 PM EST Infusion Center Neurology [address] [place] [address] Non-DHE Infusion Day #3Neurology Comment on above:Non-DHE Infusion Day #3Start: 01-19-2024 End: 89-91-7332glhbzphxft32/29/2024 9:30 AM EST Infusion Center Neurology [address] [place] [address] Non-DHE Infusion Day #2Neurology Comment on above:Non-DHE Infusion Day #2Start: 01-09-2024 End: 45-90-1484Mycbrav encounter procedureNOMS CWM FMComment on above:Arrived Start: 01-05-2024 End: 86-21-4683diivotlsbr30/15/2024 1:00 PM EST Infusion Center Neurology [address] [place] [address] VyeptiNeurologyComment on above: VyeptiStart: 12-12-2023 End: 63-13-9517Sjsaqav encounter ntocibivq90/22/2024 3:45 PM EDT Office Visit [facility]S CWM FM [address] [place] [address] Lamont Blair MD [address] [place] [address] NOMS CWM FMStart: 12-11-2023 End: 67-55-6329Tqvmkyf encounter hunurxfwr79/21/2024 1:00 PM EDT Office Visit [facility] BCP OB [address] [facility] [place] [address] Zay Blas, [address] [place] [address] [place], [place] [phone] ArrivedNOMS BCP OBComment on above:ArrivedStart: 11-15-2023 End: 54-02-0009Hrutrix encounter qazdzlhin31/25/2024 8:45 AM EDT Office Visit [facility]S C[facility] FM [address] [place] [address] Lamont Blair MD [address] [place] [phone] ArrivedNOMS CWM FMComment on above:ArrivedStart: 11-06-2023 End: 52-21-1893Llrnvtz encounter urglbnhnr75/16/2024 11:30 AM EDT Office Visit [facility] SWS NEUR [address] [facility] [address] [place] [address] Jose Martin Lopez MD [address] [facility] [address] [place] [phone] NOMS SWS NEURStart: 10-31-2023 End: 76-65-1169Akfiruy encounter tldgttyvs43/10/2024 2:30 PM EDT Office Visit Neurology [address] [place] [address] Tyrone Dolan MD, PhD [address] [facility] [address] [place] [address] SeizureNeurologyComment on above:SeizureStart: 49-77-4048Nnnga-19 Vaccine ( season)Covid-19 Vaccine ()[facility]Start: 65-00-8029Lqnca-19 Vaccine ()Covid-19 Vaccine ()[facility]: 40-32-7194Dxowshwek vaccinationParkwood Hospital Start: 10-13-2023 End: 22-46-5702agwzhnrgaa09/23/2024 1:00 PM EDT Infusion Center Neurology [address] [place] [phone] Vyepti InfusionNeurologyComment on above:Vyepti InfusionStart: 10-10-2023 End: 07-65-6394Sjovxip encounter iyxfgmuph11/20/2024 9:15 AM EDT Office Visit N[facility]S C[facility] FM [address] [place] [address] Lamont Blair MD [address] [place] [place] [address] ArrivedNOMS CWM FMComment on above:ArrivedStart: 09-19-2023 End: 99-02-2527Xhmqlgm encounter jwgysmanc91/30/2024 2:30 PM EDT Office Visit Neurology Headache [facility] [address] [place] [address] Sagar Barth APRN.NURSE'S AIDES TEACHER [address] [place] [address] Migraines Nerve BlockNeurology Headache [place] FHCComment on above:Migraines Nerve BlockStart: 08-18-2023 End: 91-73-5229Rhtrkrr encounter vzxymfdzp88/28/2024 9:30 AM EDT Office Visit Neurology [address] [facility] [place] [address] Curtis Lepe PA-C [address] [place] [address] NERVEBLOCKNeurologyComment on above:NERVE BLOCKStart: 19-38-9400Odiulmzbzt ScreeningDepression ScreeningAvita Health System Health SystemStart: 76-12-7531Wwgffszfdc AssessmentDepression AssessmentMarion Hospitaltart: 27-60-8851Mkyfd depression screening assessmentDEPRESSION SCREENINGMarion Hospitaltart: 14-66-6763Spxfd- 19 Vaccine ()Covid-19 Vaccine ()[facility]: 32-42-9283Klomjbqyd vaccinationMarion Hospitaltart: 02-20-2022 DEPRESSION ASSESSMENTDEPRESSION ASSESSMENTCleMemorial Health Systemtart: 10-26-2021 End: 99-75-2748QEYG-CoV-2 (COVID-19) RNA [Presence] in Respiratory specimen by SAURABH with probe detectionPRE-PROCEDURE & PRE-OPERATIVE COVID Microbiology Routine Seizure-like activity (HCC) Expected: 10/26/2021, Expires: 10/26/2022[facility] Work Phone: Comment on above:Expected: 10/26/2021, Expires: 10/26/2022Start: 74-16-2575Vrwaqbfds vaccinationBON SELECT MED[facility]AB[facility] HOSPITALStart: 19-15-6017NJAMIKZAEJ ASSESSMENTDEPRESSION ASSESSMENTMarion Hospitaltart: 61-70-4397Vscjcbcwe vaccinationFlu vaccine (#1)[facility] Work Phone: start: 90-47-6307OMH TESTINGPAP TESTINGMarion Hospitaltart: 96-41-2747Pkyicjmba for malignant neoplasm of cervixBON SELECT MED[facility] OHIO[facility] REHABILITATION HOSPITALStart: 00-40-4348Okkbtrrza B Vaccine (1 of 3 - 19+ 3-dose series) Hepatitis B Vaccine (1 of 3 - 19+ 3-dose series)[facility] Start: 75-66-8970Suuho microalbumin profileMarion Hospitaltart: 11-13-2013 Adult BMI Follow Up PlanAdult BMI Follow Up [facility] Uniontart: 89-96-2205Rxxbskw ScreeningAnxiety ScreeningMarion Hospitaltart: 11-13-2013 Depression ScreeningDepression ScreeningMarion Hospitaltart: 11-13-2013 Hepatitis C screeningBON SELECT MED[facility]HABIL[facility]ATION HOSPITALStart: 30-83-0675LLPIGPKWK C SCREENINGHEPATITIS C SCREENINGMarion Hospitaltart: 48-20-4560NGK SCREENINGHIV SCREENINGMarion Hospitaltart: 19-51-4805ACV screeningHIV ScreeningMarion Hospitaltart: 77-91-2356Eyjvaytov for Chlamydia trachomatisChlamydia screenWythe County Community Hospital: 54-73-4664WOS screeningHIV screenHospital Corporation of Americaart: 27-17-3787RBQZ TO ADULT TRANSITION ANNUAL ASSESSMENTPEDS TO ADULT TRANSITION ANNUAL ASSESSMENTMarion Hospitaltart: 87-68-6280Jxlfpzjcw Vaccine (1 of 2 - 13+ 2-dose series)Varicella Vaccine (1 of 2 - 13+ 2-dose series) [facility]: 33-27-6904Eqvba depression screening assessmentDEPRESSION SCREENINGMarion Hospitaltart: 13-53-5080KQLYM-19 Vaccine (1)COVID-19 Vaccine (1)[facility] Work Phone: start: 12-02-2169Qqjpihtwsz ScreenDepression ScreenWythe County Community Hospital: 79-56-8769XARH TO ADULT TRANSITION INITIAL DISCUSSIONPEDS TO ADULT TRANSITION INITIAL DISCUSSIONMarion Hospitaltart: 38-60-4954ZIY VACCINE (1 - 2-dose series)HPV VACCINE (1 - 2-dose series) [facility]: 67-80-6287GZL VACCINE (1 - 2-dose series)HPV VACCINE (1 - 2-dose series)[facility]: 90-36-6276QDoN/Tdap/Td Vaccine (1 - Tdap) DTaP/Tdap/Td Vaccine (1 - Tdap)[facility]: 11-[birth year]-1996 MMR Vaccine (1 of 1 - Standard series)MMR Vaccine (1 of 1 - Standard series) [facility]: 17-45-0980SRGKI-19 Vaccine (#1)COVID-19 Vaccine (#1)[facility] SANATORIUMSnapMD [facility]OS[facility]ITALStart: 69-31-7607WWHKBAIWI B (1 of 3 - 3- dose series)HEPATITIS B (1 of 3 - 3-dose series)[facility]: 79-83-6733Ffhonomri B Vaccine (1 of 3 - 3-dose series)Hepatitis B Vaccine (1 of 3 - 3-dose series)[facility]: 69-11-5912Qalfcwonn C screening Hepatitis C [facility] [employer] Work Phone: End: 56-16-0791Eusxo-1-Antitrypsin SnagyhkcaPqvlt-8-Lwqcwxyrgmm Phenotype Lab Routine Moderate asthma with acute exacerbation, unspecified whether persistent 1 Occurrences starting 03/20/2024 until 03/20/2025[facility] HospitalForceManagerComment on above:1 Occurrences starting 03/20/2024 until 9197Bvqql-4-Ykhaagpflma VfhntxflfGktxv-4-Iguhjmvyhbb Phenotype Lab Routine Moderate asthma with acute exacerbation, unspecified whether persistent 03/20/2024 1:12 PM Schedule C SystemsBacteria identified in Blood by Aerobe culturePTS Physicians Work Phone: Bacteria identified in Urine by CultureURINE CULTURE, ROUTINE Lab Routine 01/31/2024 11:57 AM [facility] CenterBacteria identified in Wound by Aerobe cultureWound culture superficial includes gram stain Microbiology Routine 04/08/2024 8:25 PM [employer] Phone: End: 45-77-5370Zdqrd Metabolic Panel w/ Reflex to MGBasic Metabolic Panel w/ Reflex to MG Lab Routine Daily for 7 Days starting 10/20/2021 until 10/26/2021 [facility] [employer] Phone: comment on above:Daily for 7 Days starting 10/20/2021 until 10/26/2021 End: 46-95-6814KYU W Auto Differential panel - BloodCBC with Auto Differential Lab Routine Daily for 7 Days starting 10/20/2021 until 10/26/2021, 1 completed [employer] Work Phone: comment on above:Daily for 7 Days starting 10/20/2021 until 10/26/2021, 1 completed End: 71-11-4984EWT W Auto Differential panel - BloodCBC with auto diff Lab Routine Postoperative infection, unspecified type, subsequent encounter 1 Occ urrences starting 05/02/2024 until 05/02/2025[employer] Work Phone: Comment on above:1 Occurrences starting 05/02/2024 until 05/02/2025HLAMYDIA TRACHOMATIS (GENITO/STI)CHLAMYDIA TRACHOMATIS (GENITO/STI) Lab Routine Yeast infection Ordered: 07/01/2024[employer] Comment on above:Ordered: 07/01/2024 End: 58-98-1320Blkilvzepuqmm metabolic 2000 panel - Serum or PlasmaComprehensive metabolic panel Lab Routine Postoperative infection, unspecified type, subsequent encounter 1 Occurrences starting 05/02/2024 until 05/02/2025[facility] HospitalInstructure SystemComment on above:1 Occurrences starting 05/02/2024 until 05/02/2025ytology Cervical or vaginal smear or scraping studyPap Smear Pathology and Cytology Routine Well woman exam with routine gynecological exam Ordered: 04/16/2024[facility] Work Phone: comment on above:Ordered: 04/16/2024 End: [id number] 12 leadECG 12 lead ECG Routine Bilateral ovarian cysts Preop testing 1 Occurrences starting 03/19/2024 until 03/19/2025[facility] Work Phone: Comment on above:1 Occurrences starting 03/19/2024 until 03/19/2025EKG 12 LeadEKG 12 Lead ECG Routine 10/19/2021 5:55 PM EDTBON [place] Work Phone: End: [id number] AMBULATORY EEGEPIL AMBULATORY EEG NEUROLOGY Routine Psychogenic nonepileptic seizure Spells of trembling 1 Occurrences starting 10/29/2021 until 10/29/2022[facility] Work Phone: Comment on above:1 Occurrences starting 10/29/2021 until 10/29/2022 End: [id number] EEG LEAD PLACEMENTEPIL EEG LEAD PLACEMENT NEUROLOGY Routine Seizure-like activity (HCC) 1 Occurrences starting 10/26/2021 until 10/26/2022 [facility] Work Phone: Comment on above:1 Occurrences starting 10/26/2021 until 10/26/2022 End: [id number] EEG ROUTINEEPIL EEG ROUTINE NEUROLOGY Routine Seizure-like activity (HCC) 1 Occurrences starting 11/08/2021 until 11/08/2022[facility] Work Phone: Comment on above:1 Occurrences starting 11/08/2021 until 11/08/2022EPIL VEEG ADMIT TO EMU/PMUEPIL VEEG ADMIT TO EMU/PMU NEUROLOGY Routine Seizure-like activity (HCC) [facility]: Comment on above:Ordered: 10/26/2021Neisseria gonorrhoeae DNA [Presence] in Unspecified specimen by SAURABH with probe detection Neisseria gonorrhea DNA probe, direct Lab Routine Yeast infection Ordered: 07/01/2024[facility] Ed4UComment on above:Ordered: 07/01/2024Oxygen therapy [Minimum Data Set]Initiate Oxygen Therapy Protocol Respiratory Care Routine As Needed until discontinued starting 10/19/2021[facility] Work Phone: comment on above:As Needed until discontinued starting 2SURESWAB(R) ADVANCED VAGINITIS PLUS, TMASURESWAB(R) ADVANCED VAGINITIS PLUS, TMA Pathology and Cytology Routine Yeast infection Ordered: 07/01/2024[facility]4U Work Phone: comment on above:Ordered: 07/01/2024 End: [id number] and screen(includes indirect ady)Type and screen(includes indirect ady) Blood Bank Routine Bilateral ovarian cysts Preop testing 1 Occurrences starting 03/19/2024 until 03/19/2025[facility]:1 Occurrences starting 03/19/2024 until 03/19/2025[facility] Immunizations Immunization DateImmunizationNotesCare PgizsyoeMwlvicaz39-09-4466Ufdvktqwb, injectable, Madin [place] Canine Kidney, preservative free, quadrivalentMundo Martinez MD Work Phone: [facility] HospitalUgdvzy65-87-1821ihdpefgzp virus vaccine, unspecified formulationJeeverette Ivey APRN.CNP Work Phone: [facility]Ehqgrv87-16-9840dszamqhnh, seasonal, injectable, preservative Brandon Martinez MD Work Phone: [facility] HospitalGclelr48-91-5297oqbztmivx virus vaccine, unspecified formulationCoabdoul Walton MS, [facility] Work Phone: [facility]08-01-2016tetanus toxoid, reduced diphtheria toxoid, and acellular pertussis vaccine, adsorbed Mundo Martinez MD Work Phone: [facility] HospitalEwgiiv43-25-8087uswvptnzq, seasonal, injectable, preservative Brandon Martinez MD Work Phone: [facility] HospitalJyxxmm10-52-6926cjblixtxj, seasonal, injectable, preservative Brandon Martinez MD Work Phone: [facility]04-02-2013human papilloma virus vaccineAshley MD Work Phone: [facility]11-30-2012human papilloma virus Ashley smiley MD Work Phone: [facility]09-25-2012human papilloma virus vaccine, quadrivalentMundo Martinez MD Work Phone: [facility] HospitalLslnxn14-14-9300dejapzfvb, seasonal, injectable, preservative freeMundo Martinez MD Work Phone: [facility] HospitalIlijwj52-34-4118eygdvenjcdytc polysaccharide (groups A, C, Y and W-135) diphtheria toxoid conjugate vaccine (MCV4P)Mundo Martinez MD Work Phone: [facility] HospitalTjfkko84-71-5497uzcaytckz virus vaccineMundo Martinez MD Work Phone: [facility] HospitalQftlbe47-01-9483vpbyanadh B vaccine, pediatric or pediatric/adolescent dosageMundo Martinez MD Work Phone: [facility] HospitalUjxrjo89-13-6772kcxiccqdo virus vaccineMundo Martinez MD Work Phone: [facility] HospitalLidkip88-57-9292kfbvnxpurj, tetanus toxoids and acellular pertussis vaccineMundo Martinez MD Work Phone: [facility]07-19-2002measles, mumps and rubella virus vaccineMundo Martinez MD Work Phone: [facility] HospitalOnxxjp14-54-5027caarysikqq vaccine, inactivatedMundo Martinez MD Work Phone: [facility] HospitalIhterj55-27-5169jtrfsafhxz, tetanus toxoids and acellular pertussis vaccine, Haemophilus influenzae type b conjugate , and poliovirus vaccine, inactivated (KIcP-Qie-BSH)Mundo Martinez MD Work Phone: [facility]01-14-1998measles, mumps and rubella virus vaccineMundo Martinez MD Work Phone: [facility] HospitalRhrhaj87-07-2297bruaqmxbtx, tetanus toxoids and acellular pertussis vaccine, Haemophilus influenzae type b conjugate , and poliovirus vaccine, inactivated (IMtR-Jco-XWT)Mundo Martinez MD Work Phone: [facility] HospitalNowblz96-42-4438ijungrgvlx, tetanus toxoids and acellular pertussis vaccine, Haemophilus influenzae type b conjugate , and poliovirus vaccine, inactivated (RPaL-Nzp-HXE)Mundo Martinez MD Work Phone: [facility] HospitalHczjia11-11-4188cxvceqsyy B vaccine, pediatric or pediatric/adolescent Esperanza Martinez MD Work Phone: [facility] HospitalFtcaob99-04-1881fwlenlhhuk, tetanus toxoids and acellular pertussis vaccine, Haemophilus influenzae type b conjugate , and poliovirus vaccine, inactivated (JTnZ-Dwg-PSP)Mundo Martinez MD Work Phone: [facility] HospitalRkbinu38-34-9311ymwgaxcen B vaccine, pediatric or pediatric/adolescent Esperanza Martinez MD Work Phone: [facility] HospitalPhxbct05-61-3099rxvgfxaoc B vaccine, pediatric or pediatric/adolescent Esperanza Martinez MD Work Phone: [facility] Payers DatePayer CategoryPayerPolicy [id number] (Managed Care)[employer] Member Subscriber Plan / Payer (Effective 2022-Present) Name: Margaret Nicholson Relation to Subscriber: Self Name: Margaret Nicholson Payer ID: Not on file Group ID: Not on file Type: Not on file Address: [address] [id number]-bht 2017[place]icaid[place] [id number] 2017- Present [id number] Medicaid [place] [id number] 2014Medicaid [id number] [id number] 2..1.131183.3.57[id number] 2..1.982385.3.579.[id number] 2..1.521255.3.57[id number] 2..1.341777.3.579.2.16719-68-5964Tueboqi1735145 2..1.789233.3.579.2.63769-41-6287Hvzejke4198593 2.160.1.338684.3.579.2.94317-42-0519Napgbzj2337463 2..1.847404.3.579.2.94150-48-4854Zfginvz6292948 2.160.1.711438.3.579.2.05110-51-2326Ybpqgfp6468555 2.16.840.1.402416.3.579.2.46954-42-7394Yyryzmm7743319 2.16.840.1.663531.3.579.2.68349-63-0593Szhfcng2365618 2.16.840.1.455960.3.579.2.63268-40-1824Ehfqlgz5221915 2.16.840.1.217942.3.579.2.91155-21-0373Naexzpj6144210 2.16.840.1.157414.3.579.2.25140-72-9323Pujpxji3968840 2.16.840.1.115895.3.579.2.19977-30-1445Ikzkgsn8391558 2.16840.1.152724.3.579.2.72956-31-3422Pimtsuz5869012 2.16840.1.141737.3.579.2.91933-69-7119Vvoxbif9481841 2.16.840.1.429730.3.579.2.30485-26-3862Gylcgan3706858 2.16.840.1.599084.3.579.2.82997-99-3124Sbznpkk5672216 2.16840.1.825582.3.579.2.76961-81-8119Mgwtjnj2984811 2.16.840.1.230967.3.579.2.37217-87-3090Cdjkcnb9952916 2.16.840.1.082361.3.579.2.09374-60-2015Oovikbb6339683 2.16.840.1.964447.3.579.2.21775-62-9856Lsxjies6488677 2.16840.1.935500.3.579.2.35619-31-7932Kvvlsdr0495522 2.16.840.1.683126.3.579.2.42615-21-2998Fvoubcp6495210 2.16840.1.286686.3.579.2.51641-99-6505Yxozigi69886554 2.16840.1.318078.3.579.2.589686-65-5070Uwtqnmt2127236 2.840.1.052483.3.579.2.616564-70-6274Amsahth9650581 2.0.1.383889.3.579.2.325297-09-2506Qcmtcsz4148484 2.840.1.352383.3.579.2.179816-69-2169Gwutmim3841737 2.0.1.343794.3.579.2.229456-07-5434Akwtrbb5237360 2.0.1.474149.3.579.2.980773-48-6713Kzozqsz8256605 2.0.1.555121.3.579.2.937309-48-3446Oycyvgh6919302 2.840.1.703131.3.579.2.372017-03-0803Fhvwapo4195197 2..1.711051.3.579.2.313959-71-5903Avqkmyv4141687 2.840.1.853204.3.579.2.899849-62-4431Qcoihou8010382 2.840.1.368203.3.579.2.701038-70-9402Vytcxgp8839823 2.16840.1.732523.3.579.2.995689-51-2567Wrxwkau6484054 2.840.1.775998.3.579.2.302912-11-0062Kulljkz319905561193 1.2.840.130159.1.13.239.2.7.3.377578.294Uijifsv30914413 2.16.840.1.903211.3.579.2.531 Social History DateTypeDetailFacilityTobacco smoking status NHISUnknown if ever smokedMarion Hospitaltart: 11-28-9965Ays Assigned At BirthNot on fileMarion Hospitaltart: 12-24-2020 End: 97-42-1098Wkdxdus smoking status NHISNever smokerRegency Hospital Cleveland EastYurpy Phone: start: 12-24-2020 End: 82-94-8928Puqohkx use and exposureNever usedJ.W. Ruby Memorial HospitalStart: 12-24-2020 End: 92-17-6383Tiadwft intakeEx-drinker (finding)[employer] Phone: start: 10-16-2021 End: 82-97-9757Savtpojt to SARS-CoV-2 (event)Not sureRiverview Health InstituteStarCard smoking status NHISTobacco smoking consumption unknownParkwood Hospital Becual Phone: Start: 03-03-2020 End: 36-12-9019Wxkhwev of Social functionMarion Hospitaltart: 03-03-2020 End: 67-98-1053Rjgfcrb Health Questionnaire 2 item (PHQ-2) [Reported][facility] Hospitaltart: 73-22-6285Iiabw Depression Screening [facility] Start: 11-15-2023 End: 43-77-1059Dkxywnncn beverage intakeLifetime non-drinker (finding)[facility] HealthcareStart: 11-07-3710Oxpfsit CommentCaffeine intake: >4 cups per dayNOMS HealthcareDo you belong to any clubs or organizations such as cheondoism groups, unions, fraternal or athletic groups, or school groups?YesNOMS HealthcareAre you now , , , , never or living with a partner?Living with partnerNOMS HealthcareHow often to you have a drink containing alcohol?NeverNOMS HealthcareHow hard is it for you to pay for the very basics like food, housing, medical care, and heatingNot very hardNOMS HealthcareDo you feel stress - tense, restless, nervous, or anxious, or unable to sleep at night because yourmind is troubled all the time - these days [OSQ] Rather muchNOMS Healthcare(I/We) worried whether (my/our) food would run out before (I/we) got money to buy more.Never trueNOMS HealthcareIn the past 12 months, was there a time when you were not able to pay the mortgage or rent on time?NoNOMS HealthcareStart: 82-78-7740GzzMnhdzq (finding)[facility] Health SystemHow often to you have a drink containing alcohol?Monthly or lessProRegency Hospital Cleveland Westca Health SystemHow many standard drinks containing alcohol do you have on a typical day?1 or 2PWexner Medical Center SystemStart: 35-93-3653Ouwfzun Commentsocial [facility] SystemNEGATED: Highlighted rowStart: NINFHistory of tobacco use Passive smokerNOMS Healthcare Goals DatePatient GoalDesired Activity/StatePersonal health goalComment on above: Evaluation of progress towards goal: Patient stated goal is to return home with HCC for assistance with wound care Functional Status LuedNbpskuywtvOzfbekQtsjeiyr87-54-0636Rbw you deaf, or do you have serious difficulty hearingNo 04/01/2022 6:20 PM Katie Florez RN NoCtrihealth good samaritan hospitalpeggy Ldrwtn70-38-2690Jhe you blind, or do you have serious difficulty seeing, even when wearing glassesNo 04/01/2022 6:20 PM Katie Florez RN NoCleveland Mamlhk59-51-6940Nm you have serious difficulty walking or climbing stairsNo 04/01/2022 6:20 PM Katie Florez RN NoCtrihealth good samaritan hospitalpeggy Svymqj25-24-3841Hq you have difficulty dressing or bathingNo 04/01/2022 6:20 PM Katie Florez RN NoCtrihealth good samaritan hospitalpeggy Drflaz97-04-3458Ympmoga of a physical, mental, or emotional condition, do you have difficulty doing errands alone such as visiting a physician's office or shoppingNo 04/01/2022 6:20 PM Katie Florez RN No [facility] Mental Status BzmuXtaffcinogUvfizyXyiqeuuc82-03-5355Ruiqtvm of a physical, mental, or emotional condition, do you have serious difficulty concentrating, remembering, or making decisionsNo 04/01/2022 6:20 PM Katie Florez, PRATIBHA [facility] Clinical Notes 12-24-2020 to 12-20-2024 Note Date & PrqkWqzoAxqhbzsj60-44-2523 History of Present illness Narrative* Saba Fieldsaji, AUTO PAINTER-NURSE'S AIDES TEACHER - 12/20/2024 10:00 AM EDT Subjective Patient ID: April Nicholson is a 29 y.o. female. Chief [...] 03/25/2024 Prolonged emergence from general anesthesia Seizure ([facility]) Last one 03-11-2024 Past Surgical History Past Surgical History: Procedure Laterality Date APPENDECTOMY SECTION CHOLECYSTECTOMY [facility] DV5 LYSIS OF ADHESIONS N/A 03/28/2024 Performed by Mundo Martinez MD at [facility] DV5 LYSIS OF ADHESIONS N/A 03/28/2024 Performed by Jesse Sultana MD at [facility] DV5 SALPINGO OOPHORECTOMY/FROZEN SECTION Bilateral 03/28/2024 Performed by Mundo Martinez MD at [facility] DILATION AND CURETTAGE OF UTERUS PARTIAL HYSTERECTOMY [...] Physical Activity: Insufficiently Active (01/23/2024) Received from [facility] Exercise Vital Sign On average, how many days per week do you engage in moderate to strenuous exercise (like a brisk walk)?: 7 days On average, how many minutes do you engage in exercise at this level?: 10 min Stress: Stress Concern Present (01/23/2024) Received from [facility] of Occupational Health - Occupational Stress Questionnaire Feeling of Stress : Rather much Social Connections: Socially Integrated (01/23/2024) Received from [facility] Social Connection and Isolation Panel In a typical week, how many times do you talk on the phone with family, friends, or neighbors?: More than three times a week How often do you get together with friends or relatives?: Twice a week How often do you attend cheondoism or faith services?: More than 4 times per year Do you belong to any clubs or organizations such as cheondoism groups, unions, fraternal or athletic groups, or [...] TWO PUFFS BY MOUTH EVERY 4 HOURS MGFGCF73 g 0 baclofen (LIORESAL) 10 mg tablet [...] NOSTRIL EVERY OTHER DAY 16 g 2 geakzropgiw-yebpwmhxs-iuorlvtl (TRELEGY ELLIPTA) 200-62.5-25 mcg blister with device [...] BP Postition: Sitting) Pulse 112 Temp 36.6 C (97.9 F) (Oral) Ht154.9 cm (5' 0.98 ) Wt 128.5 kg (283 lb 6.4 oz) LMP (LMP Unknown) SpO2 96% BMI 53.58 kg/m Physical Exam Physical Exam Vitals and nursing [...] SARAHI Karimi 12/20/24 1320 documented in this encounterSelect [facility]ronA[facility] Mduoes84-41-9334 History of Present illness Narrative* Vincent Peña DO - 12/17/2024 9:30 AM EDT Images from the original note were not included. [facility] Progress Note Patient - April Nicholson Age - 29 y.o. - 1995 ASSESSMENT Poorly controlled eosinophilic severe persistent asthma [...] from immunotherapy for her asthma. Discussed again Dupixent. She qualifies based off of ongoing exacerbations, [...] to her satisfaction Will complete paperwork for Dupixent today Follow-up in 3 months at [facility] OSMANI Hooper presents for follow-up of her eosinophilic asthma. [...] she has filled any maintenance inhaler with Trelegy and only see prescriptions for albuterol aerosols solution that are being filled on med review. She does report consistent use and that she has been getting regular fills from [facility]. She does also note that her youngest daughter does had a confirmation diagnosis ofcystic fibrosis. Her other daughter has PCD diagnosis VITALS Ht 154.9 cm (5' 1 ) Wt 126 kg (277 lb 12.5 oz) LMP (LMP Unknown) BMI 52.49 kg/m Exam General: Alert, oriented, no acute distress, [...] appreciated. No acute process is seen. Dr. Vincent Peña DO. [facility] Pulmonary [facility] Critical [facility] Office: [phone] documented in this encounterSelect Medical Specialty Hospital - AkronAvalon Health Management Ygfjqg77-93-1167 NoteHNO ID: [id number] Author: CURTIS LEPE PA-C Service: ? Author Type: Physician Supervisor Drying Type: Progress Notes Filed: 12/13/2024 10:49 Note Text: Headache Center Infusion JUAN A Note Subjective: April Nicholson is a 29 year old year old female presenting for day 3 of infusions. April reports improvement in her headache pain. She has completed 3 infusion treatments: Monday, yesterday, and today. April reports snoring and during sleep, and believes [...] Lymph 1.00 - 4.00 k/uL 0.84 Abs [place] <0.87 k/uL 0.06 Abs Eosin <0.46 k/uL [...] mg/72 hr (delivers 1 mg over 3 days)apply 1 patch behind the EAR at least FOUR HOURS prior to exposure and every 3 (THREE) days NEEDEDDisp: 4 patchRfl: 2 carBAMazepine XR (TEGRETOL XR) 100 mg 12 hr tabletTake 100 mg by mouth two times a day.Disp: Rfl: (Patient taking differently: Take 200 mg by mouth two times a day.) desvenlafaxine ER (PRISTIQ) 50 mg 24 hr tabletTake 50 mg by mouth once daily.Disp: Rfl: (Patient taking differently: Take 100 mg by mouth once daily.) estradiol (ESTRACE) 1 mg tabletTake 1 mg by mouth every morning.Disp: Rfl: progesterone micronized (PROMETRIUM) 100 mg capsuleTake 100 mg by mouth once daily.Disp: Rfl: zavegepant (ZAVZPRET) 10 mg/actuation nasal sprayUse one [...] ZOLMitriptan (ZOMIG) 5 mg nasal sprayUse 1 [place] in the nose as needed at onset of migraine headache. If symptoms persist or return, may repeat dose in other nostril after 2 hours. Maximum of 2 sprays per 24 hoursDisp: 12 eachRfl: 5 albuterol sulfate 90 mcg/actuation breath activated powder inhalerInhale 2 Puffs as instructed every 6 hours as needed for wheezing/shortness of breath.Disp: Rfl: diazePAM (VALIUM) 10 mg tabletDisp: Rfl: [...] and clear, coherent, and relevant. 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 Attention span and concentration are excellent. Cranial Nerves: VII-face is symmetric witho (more content not included)... [facility]10-24-2025 NoteHNO ID: [id number] Author: CORETTA QUINTANILLA RN Service: ? Author Type: Registered Nurse Type: Progress Notes Filed: 12/13/2024 10:37 Note Text: 0832: Patient in for day 2 of IV infusions. Patient rated headache 8/10. Patient stated severe nausea and severe dizziness. Patient educated on medications to be administered. Patient verbalized understanding and agreed to proceed with infusions. 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 She would like PRN zofran for nausea and PRN benadryl for sedation. 1036: Pts infusions complete. Pt tolerated infusion well. Pt rated headache 4/10. Pt stated severe nausea and moderate dizziness. Pt preferred second line PRN phenergan for nausea over zofran. Phenergan administered. Pt discharged from treatment room via wheelchair to her in the lobby.[facility]10-23-2025 Miscellaneous Notes* Telephone Encounter - Vielka Hussein - 12/12/2024 10:57 AM EDT 12/10 Order received 12/12 Called PT LM to schedule sleep study. Comp Order and 12/10/24 M. [facility] Epic Notes documented in this encounterParma [facility]10-23-2025 Telephone encounter Note* Telephone Encounter - Vielka Hussein - 12/12/2024 10:57 AM EDT 12/10 Order received 12/12 Called PT LM to schedule sleep study. Comp Order and 12/10/24 M. Epic Notes [facility] Gkpbmt41-31-1423 NoteHNO ID: [id number] Author: LENNIE PALACIOS, PRATIBHA Service: ? Author Type: Registered Nurse Type: Progress Notes Filed: 12/12/2024 11:48 Note Text: 0940 Patient admitted to infusion room from Dr. Cornelius's office visit, added on for headache infusion for today and tomorrow. Headache 8/10 with severe nausea and severe dizziness. 1100 Patient sleeping with ice packs on head. 1144 Patient discharged to home, headache 6/10 with moderate nausea, phenergan po given. Patient with moderate dizziness, transferred to [facility] for discharge in wheelchair.[facility]10-23-2025 NoteHNO ID: [id number] Author: BASIL CORNELIUS, Service: ? Author Type: Physician Type: Progress Notes Filed: 12/12/2024 09:58 Note Text: Headache [facility] Facial [facility] [address] [place] [address] Headache Center - Follow up Visit Accompanied by: Self Primary Problem List: ACTIVE PROBLEM LIST Seizure-Like Activity (Hcc) Psychogenic Nonepileptic Seizure Intractable Chronic Migraine Without Aura and With Status Migrainosus Chronic Migraine Without Aura, With Intractable Migraine, So Stated, With Status Migrainosus Intractable Chronic Migraine Without Aura and Without Status Migrainosus Chief Complaint: migraine Impression and Plan from last visit 09/24/2024 (Curtis Lepe PA-C) IMPRESSION: April Nicholson is a 28 year [...] an on the specific date while she is here. - Increase Vyepti dose to 300 mg [...] this. Current treatment: Preventative: Vyepti 300 mg s6xidynw Abortive: Zavzpret 10 mg IN prn Zomig IN prn Phenergan Last office visit 09/24/2024: Headache 1 Location: holcephalic Quality/Description: throbbing and pressure Associated Symptoms: Photophobia: yes Phonophobia: yes Nausea: yes Vomiting: yes Other symptoms: osmophobia and vertigo Worse with activity: yes Number of migraine headache days/month (more content not included)...[facility]10-22-2025 NoteHNO ID: [id number] Author: LENNIE PALACIOS RN Service: ? Author Type: Registered Nurse Type: Progress Notes Filed: 12/11/2024 10:46 Note Text: 0900 Patient admitted to infusion room and headache 10/ with severe nausea and dizziness. Patient was in ER for migraine 3 days ago . She has not been able to keep medications down due to severe nausea. Zofran and Benadryl given prior to Vyepti and Toradol ordered for after infusion. 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 Toradol given after Vyepti flush . Headache unchanged still /. Patient scheduled with Dr. Cornelius tomorrow morning.[facility]10-22-2025 NoteHNO ID: [id number] Author: STANLEY LAZO APRN.NURSE'S AIDES TEACHER Service: ? Author Type: Nurse Practitioner Type: Progress Notes Filed: 12/11/2024 10:46 Note Text: Pt has severe migraines. She is requesting toradol IV while she has Vyepti infusions. She has not had any NSAIDs in the last 4 days, kidney function is normal. Will give 30 mg IV toradol today.[facility]10-21-2025 History of Present illness Narrative* Corine Gold MD - 12/10/2024 2:30 PM EDT Images from the original note were not included. [address] [place] [id number] Patient: April Nicholson Date of : 1995 Encounter Date: 12/10/2024 SUBJECTIVE: Chief Complaint: Chief Complaint Patient presents with Annual Exam Obesity Patient ID: April Nicholson is a 29 y.o. female. Pleasant 20-year-old female seen today for TeleMed encounter for interval assessment of JUAN DAVID and weight gain Adipex did not work, Sleep is very poor Trial of remeron, doxepin, trazadone among other therapires. Currently on Diazepam Considering risperidol now in addition to tegretol, Had complete hysterectomy so going through menopausal symptoms. Endorese gaining signifciant weight. Snoring continously. Wakes multiple times. Feels exahsuted all day. Never had sleep apnea assessment. STOP BANG HIGH The following portions of the patient's history were reviewed and updated as appropriate: allergies, current medications, past family history, past medical history, past social history, past surgicalhistory and problem list. PHYSICAL EXAMINATION: Physical Exam [...] normal. ASSESSMENT/PLAN: April was seen today for annual exam and obesity. Diagnoses and all orders for this visit: JUAN DAVID (obstructive sleep apnea) - SARS COV 2 (COVID-19); Future - PSG Diagnostic; Future - Polysomnography 4 or more parameters with PAP titration; Future - Ambulatory referral to [facility]; Future JUAN DAVID screen positive Needs Sleep study Ordered today Follows psychiatry Is on hormone replacement after total hysterectomy Exercise counseling completed. Follow-up in 3 months CORINE GOLD MD Family Medicine Physician [facility] Medicine / [facility] 12/10/24 This note was completed with voice recognition software. The document was reviewed for errors however some may still be present. Please do not hesitate to contact/Epic msg the author to verify any questions/concerns. documented in this encounterParma [facility]10-[facility]-2025 NoteHNO ID: [id number] Author: RAIZA SHIELDS APRN.CNP Service: ? Author Type: Nurse Practitioner Type: Progress Notes Filed: 11/26/2024 13:56 Note Text: Patient was incorrectly scheduled; Was told to establish care with MD, I will have scheduling team reach out and assist patient in getting set up with Physician. Appointment cancelled, no charge. Raiza Shields APRN.CNPBucyrus Community Hospital09-04-2025 History of Present illness Narrative* SARAHI Champion - 10/24/2024 2:40 PM EDT Subjective Patient ID: April Nicholson is a [...] She reports symptoms continue to worsen since Monday night. She denies any new sick contacts however her daughter did have strep and hand foot and mouth a few weeks ago. The following portions of the patient's history were reviewed and updated as appropriate: allergies, current medications, past family history, past medical history, past social history, past surgicalhistory, problem list, and medication reconciliation was completed including current medication andpost discharge medication. Review of Systems Constitutional: Positive for fatigue and unexpected weight change (Encouraged to schedule follow upappointment to discuss weight gain). HENT: Positive for [...] send in steroid, she has tolerated prednisone inthe past. Since she has cough and is [...] total) by mouth 3 (three) times a dayfor 7 days. - xeirhosn-duokzurxt-TQ (CORTISPORIN) otic solution; Administer 3 drops into the left ear 3 (three)times a day for 7 days. Mild asthma [...] SARAHI Champion 10/24/24 1530 documented in this encounterParma [facility] Hospital08-05-2025 NoteHNO ID: [id number] Author: CURTIS LEPE PA-C Service: ? Author Type: Physician Supervisor Drying Type: Progress Notes Filed: 12/12/2024 22:32 Note Text: [facility] - Follow up [...] visit. Either the patient or their legal kiosk sales representative has been informed of the [...] beyond the current two-m (more content not included)...[facility] History of Present illness Narrative* Yumiok Worrell LPN - 09/03/2024 10:20 AM EDT Reason for Appointment: Patient ID: Margaret Nicholson is a 28 y.o. female who [...] or maintaining sleep 01/24/2023 Mild persistent asthma ([facility]) 01/24/2023 Polycystic ovaries 01/24/2023 Psychogenic nonepileptic seizure 01/24/2023 Class 3 severe obesity due to excess calories without serious comorbidity with body mass index (BMI) of 50.0 to 59.9 in adult ([facility]) 03/21/2023 Mild persistent asthma with (acute) exacerbation ([facility]) 10/10/2023 Fatigue 01/01/2024 Encounter for long-term [...] Acute exacerbation of asthma with allergic rhinitis ([facility]) Allergies Asthma ([facility]) At low risk for fall Bipolar affective, mixed ([facility]) Change in blood pressure Cholecystitis 2008 Depressive disorder OMID (generalized anxiety disorder) History of hysterectomy 10/01/2021 Insomnia, persistent Migraines Mild persistent asthma without complication ([facility]) Morbid obesity with BMI of 40.0-44.9, adult [facility] PCOS (polycystic ovarian syndrome) Right otitis media Seizures (HCC) HISTORY PAST MEDICAL HISTORY SOCIAL HISTORY Past [...] persistent Migraines Mild persistent asthma without complication ([facility]) Morbid obesity with BMI of 40.0-44.9, adult ([facility]) PCOS (polycystic ovarian syndrome) Psychogenic nonepileptic seizure Right otitis media Seizures ([facility]) stressed induced Social History Tobacco Use [...] nursing note reviewed. Exam conducted with a sky cap present. Vitals: Estimated body mass index is [...] of: Zay Blas DO documented in this encounterSaint Luke's North Hospital–Barry [id number] Miscellaneous Notes* [facility] En[facility] - [facility] - 08/26/2024 9:19 AM EDT With Provider: VINCENT PEÑA [[facility]] Preferred Date Range: 08/27/2024 - 09/07/2024 Preferred Times: Any Reason for Visit: Same Day Comments: Asthma and allergy flareup documented in this encounterParma [facility] Hospital07-07-2025 Telephone encounter Note* Telephone Encounter - [facility] - 08/26/2024 9:19 AM EDT With Provider: VINCENT PEÑA [[facility]] Preferred Date Range: 08/27/2024 - 09/07/2024 Preferred Times: Any Reason for Visit: Same Day Comments: Asthma and allergy flareup [facility] [employer] [id number] Telephone encounter Note* Telephone Encounter - Mendoza Dooley - 08/19/2024 3:31 PM EDT Called patient since she no-showed for infusions today. Patient is going to cancel her infusions because she is headache free at the moment. She does want to know what to do if her headaches come back. Forwarding message to provider [facility]06-30-2025 Miscellaneous Notes* Telephone Encounter - Mendoza Dooley - 08/19/2024 3:31 PM EDT Called patient since she no-showed for infusions today. Patient is going to cancel her infusions because she is headache free at the moment. She does want to know what to do if her headaches come back. Forwarding message to provider documented in this encounterParkwood Hospital06-27-2025 Telephone encounter Note * Telephone Encounter - Mendoza Dooley - 08/16/2024 11:44 AM EDT Patient last infusion was on 08/02 and only had one day. Routing to provider to see if she can come in [facility]06-27-2025 Miscellaneous Notes* Telephone Encounter - Mendoza Dooley - 08/16/2024 11:44 AM EDT Patient last infusion was on 08/02 and only had one day. Routing to provider to see if she can come in * Telephone Encounter - Eloina Gibbs LPN - 08/16/2024 10:54 AM EDT Forwarded to infusion team, provider and Mendoza * Telephone Encounter - Eloina Gibbs LPN - 08/16/2024 10:38 AM EDT MYC message sent to patient or clarification documented in this encounterParkwood Hospital06-27-2025 Telephone encounter Note * Telephone Encounter - Eloina Gibbs LPN - 08/16/2024 10:54 AM EDT Forwarded to infusion team, provider and Mendoza [facility]06-27-2025 Telephone encounter Note* Telephone Encounter - Eloina Gibbs LPN - 08/16/2024 10:38 AM EDT MYC message sent to patient or clarification [facility]06-17-2025 Telephone encounter Note* Telephone Encounter - Rhiannon Bobo - 08/06/2024 9:58 AM EDT Ambulatory Pharmacy Prior Authorization Note Provider Intervention Required?: No - Pharmacy completed on your behalf. Was the PA documented within the ePA workqueue?: No Rx Plan: Medicaid MCO ([facility]) Drug: Zavzpret 10MG/ACT solution Cover My Meds Chong: [id number] Determination: Approved Prior Authorization/Case #: [id number] Prior Authorization Expiration: 01/31/2025 Time to PA [...] no interruption in patient's ability to obtain medic ation refills. Prescriptions will now be processed through [facility] for determination of next steps. For questions relating to this submission, please contact [facility] at [phone] [facility]06-17-2025 Miscellaneous Notes* Telephone Encounter - Rhiannon Bobo - 08/06/2024 9:58 AM EDT Ambulatory Pharmacy Prior Authorization Note Provider Intervention Required?: No - Pharmacy completed on your behalf. Was the PA documented within the ePA workqueue?: No Rx Plan: Medicaid MCO ([facility]) Drug: Zavzpret 10MG/ACT solution Cover My Meds Chong: [id number] Determination: Approved Prior Authorization/Case #: [id number] Prior Authorization Expiration: 01/31/2025 Time to PA [...] no interruption in patient's ability to obtain medic ation refills. Prescriptions will now be processed through [facility] for determination of next steps. For questions relating to this submission, please contact [facility] at [phone] documented in this encounterParkwood Hospital06-16-2025 Instructions* Patient Instructions* Curtis Lepe PA-C - 08/05/2024 12:09 AM [...] seems to wear off before your next infusion,call the clinic to discuss adding infusion days [...] the brain. Zavzpret is the first and onlyCGRP receptor antagonist nasal spray. It is rapidly [...] more information and get the Copay Card: [email or web address]://[email or web address].Lomography/ Administration: Nose to toes or head level (do not tilt head back). Single spray in one nostril as needed for migraine. Do not prime. One dose per 24 hours. Avoid use with severe hepatic impairment or creatinine clearance less than 30ml/min. No contraindication to take zavzpret with nurtec or another CGRP antagonist. Use copay card. 6 doses in container. documented in this encounterParkwood Hospital06-13-2025 History of Present illness Narrative* Curtis Lepe PA-C - 08/02/2024 11:00 AM EDT Images from the original note [...] she feels wear off consistently at the two- month genaro. she did well with most recent Vyepti infusion withpremedicated with Benadryl and Valium to target her [...] Lymph 1.00 - 4.00 k/uL 0.84 Abs Acadia <0.87 k/uL 0.06 Abs Eosin <0.46 k/uL [...] ZOLMitriptan (ZOMIG) 5 mg nasal spray^Use 1 [place] in the nose as needed at onset [...] articulation, and clear,coherent, and relevant. Short and custodial memory, cognition [...] with the treatment plan. Level of service: [facility] level 2 (10-19 min). Time spent 18 min on the day of service, which included preparing to see the patient, [id number] patient care, completing clinical documentation, obtaining and/or [...] XL, Qudexy) Anti-Depressant and Antipsychotic Amitriptyline (Elavil) [place] (Eskalith, Lithobid) Nortriptyline (Pamelor, Aventyl) Blood Pressure Propranolol (Inderal) MABs Fremanezumab (Ajovy) Galcanezumab (Emgality) Botulinum Toxin Onabotulinum Toxin A (Botox) Supplements Magnesium The following abortive medications have been tried but require high frequency use which can lead toMedication Overuse Headache: Analgesic Ketorolac (Toradol) Anti-Migraine Dihydroergotamine (DHE-45, Migranal) Naratriptan (Amerge) Sumatriptan (Imitrex, Sumavel) Zolmitriptan (Zomig) Recording using [employer] software for draft documentation of the visit was discussed with the patient/authorized kiosk sales representative; all questions welcomed and answered. Patient/authorized kiosk sales representative agreed to proceed Curtis Lepe PA-C Headache Section [facility] August 02, 2024 documented in this encounterParkwood Hospital06-13-2025 NoteHNO ID: [id number] Author: CURTIS LEPE PA-C Service: ? Author Type: Physician Supervisor Drying Type: Progress Notes Filed: 08/05/2024 00:10 Note [...] Lymph 1.00 - 4.00 k/uL 0.84 Abs Acadia <0.87 k/uL 0.06 Abs Eosin <0.46 k/uL [...] ZOLMitriptan (ZOMIG) 5 mg nasal sprayUse 1 [place] in the nose as needed at onset [...] in rate, volume a (more content not included)...[facility] 08-02-2024 NoteHNO ID: [id number] Author: ALKA TRENT RN Service: ? Author Type: Registered Nurse Type: Progress Notes Filed: 08/02/2024 12:53 Note Text: Patient in for day 1 of IV infusions. Patient rated headache 10/10. Patient stated severe nausea and mild dizziness. Patient educated on medications to be administered and a spotter driver to transport home was confirmed. Patient verbalized understanding and agreed to proceed with infusions. PRn zofran and benadryl given PRN phenergan given Pts infusions complete. Pt tolerated infusion well. Pt rated headache 6/10. Pt stated mild nausea and moderate dizziness. Pt discharged from treatment room. [facility]06[facility] History of Present illness Narrative* Alka Trent RN - 08/02/2024 10:13 AM EDT Patient in for day 1 of IV infusions. Patient rated headache 10/10. Patient stated severe nausea and mild dizziness. Patient educated on medications to be administered and a spotter driver to transport home was confirmed. Patient verbalized understanding and agreed to proceed with infusions. PRn zofran and benadryl given PRN phenergan given Pts infusions complete. Pt tolerated infusion well. Pt rated headache 6/10. Pt stated mild nausea and moderate dizziness. Pt discharged from treatment room. documented in this encounterParkwood Hospital06-12-2025 NoteHNO ID: [id number] Author: CURTIS LEPE PA-C Service: ? Author Type: Physician Supervisor Drying Type: Progress Notes Filed: 08/01/2024 13:20 Note Text: Okay to come in for 1 day of non DHE IV infusions tomorrow.[facility] History of Present illness Narrative* Curtis Lepe PA- C - 08/01/2024 12:14 PM EDT Okay to come in for 1 day of non DHE IV infusions tomorrow. * Lennie Palacios RN - 08/01/2024 10:56 AM EDT 11:00 Patient admitted to infusion area and history reviewed. Patient had headache 9/10 with moderate nausea and dizziness. Patient requests that infusions be provided for tomorrow since she is staying overnight. As per Curtis HERNANDEZ, patient was put on for day 1 infusions. 1236 Patient discharged to spotter driver headache pain unchanged. documented in this encounterParkwood Hospital06-12-2025 NoteHNO ID: [id number] Author: LENNIE PALACIOS RN Service: ? Author [...] day 1 infusions. 1236 Patient discharged to spotter driver headache pain unchanged.[facility]06-04-[facility] History of Present illness Narrative* Halima Johns, AUTO PAINTER-NURSE'S AIDES TEACHER - 07/24/2024 3:00 PM EDT Images from the original note were not included. Subjective CC: Infected toe/infection both eyes Patient ID: April Nicholson is a 28 y.o. female. CINTHIA Newberry presents with complaints of infection of right great toe. Relates had an infected toenail of her right great toe. States had a pedicure a few days ago, and paraffiner cleaned out the ingrowntoenail region, and obtained a lot of green pus. States she also has had to do this in the past. Sandra feels the redness has improved, but is still sore to walk on the foot. Also relates both her eyes are light sensitive, puffy and feel bruised. This has been going on since mid-May. [facility] she talked to provider about this, and she tried taking allergy medication, along with allergy eye drops, but obtained no relief from these symptoms. Sandra states she follows up every 3 months with [facility] for migraines. Often times the last month before her infusion, headaches arise, and along with that eye pressure. Although, is now worse than normal. The following portions of the patient's history were reviewed and updated as appropriate: allergies, current medications, past family history, past medical history, past social history, past surgicalhistory, problem list, and medication reconciliation was completed including current medication andpost discharge medication. Review of Systems Constitutional: Negative. [...] Nose: Nose normal. No rhinorrhea. Mouth/Throat: Lips: Brow[place]. Mouth: Mucous membranes are moist. Pharynx: Oropharynx [...] drops; Administer 1 drop to both eyes inthe morning and 1 drop at noon and 1 drop in the evening and 1 drop before bedtime. Do all this for5 days. Ingrown nail of great toe - Ambulatory referral to Podiatry (Non-[facility]); Future SARAHI De León 07/24/24 1707 documented in this encounterParma Community [facility] Hospital05-16-2025 Telephone encounter Note* Telephone Encounter - Mendoza Dooley - 07/05/2024 3:08 PM EDT Images from the original note were not included. Left detailed voicemail message to schedule infusions [facility]05-16-2025 Miscellaneous Notes* Telephone Encounter - Mendoza Dooley - 07/05/2024 3:08 PM EDT Images from the original note were not included. Left detailed voicemail message to schedule infusions documented in this encounterParkwood Hospital05-16-2025 Telephone encounter Note * Telephone Encounter - Kaye Lopez - 07/05/2024 12:22 PM EDT I have been unable to reach this patient by phone. A letter is being sent to the last known home address. [facility] 07/05, 07/12 Letter sent- 07/19 [facility] [id number] Miscellaneous Notes* This document contains information received from the source organization and may not represent a complete record from that organization. * Restricted notes were excluded * Telephone Encounter - Kaye Lopez - 07/05/2024 12:22 PM EDT I have been unable to reach this patient by phone. A letter is being sent to the last known home address. [facility] 07/05, 07/12 Letter sent- 07/19 * Telephone Encounter - Vita Velez - 07/05/2024 8:59 AM EDT Approved or Denied?Approved Auth #[id number] Dates of span:06/25/2024 TO 09/24/2024 Method of contact:FAX * Telephone Encounter - Vita Velez - 07/02/2024 2:17 PM EDT Checked portal for PA Auth#[id number] still pending. * Telephone Encounter - Vita Velez - 06/25/2024 3:57 PM EDT Date initiated:06/25/2024 Insurance provider:Lyndsay Name of kiosk sales representative:portal(Urgent) Reference#:[id number] * Telephone Encounter - Viktoria Walton MS, [facility] - 06/25/2024 2:43 PM EDT Please preauthorize this patient for: CPT code [...] insurance (private or state HMO): State HMO ([place] [employer] [facility]) Secondary Medicaid too? (Y/N): No Did the patient apply for [facility]? (Y/N): No If Yes, is it approved (provide approval dates) or still waiting on approval?: no Is a new blood sample required?: No Special lab draw instructions (e.g. Must draw on Monday-Monday): n/a Order placement: Default release COMMENTS: [facility] Plan ID: [id number] * Telephone Encounter - Viktoria Walton MS, CGC - 06/25/2024 2:36 PM EDT GENETIC COUNSELOR ASSESSMENT A consultation was requested [...] case with Gifty Reno MD's as needed priorto seeing the patient. 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 There is also a family history of learning delays, intellectual disability and autism in several of her other children who share different fathers as her daughter. The remainder of April's reported family history is negative for known or suspected genetic disease, defects, malformation syndromes, chromosomal disorders, developmental delay, intellectualdisability, infertility, recurrent loss, stillbirth, unexplained infant . [...] the possibility of providing a recurrence risk andprenatal test option for the family. Risks and limitations of genetic testing were discussed as well, including the sensitivity of the testing and possibility of receiving secondary findings and results of uncertain clinical significance. Post-test genetic counseling will be provided to the family,if requested. The family expressed understanding and asked appropriate questions during this discussion. This plan is being carried out per Gifty Reno MD's recommendations. This note will also be sent to the referring provider. Sincerely, Viktoria Walton MS, PHIL[place] Licensed, Certified Genetic Counselor documented [facility] this [facility]05-16-2025 Telephone encounter Note* Telephone Encounter - Vita Velez - 07/05/2024 8:59 AM EDT Approved or Denied?Approved Auth #[id number] Dates of span:06/25/2024 TO 09/24/2024 Method of contact:FAX [facility]05-16-2025 History of Present illness Narrative* Neeraj Shane - 07/05/2024 8:39 AM EDT Received [facility] FAX Forward FAX to Supporting Admin documented in this [facility]05-15-2025 Instructions* Patient Instructions* Curtis Lepe PA-C - 07/04/2024 11:24 AM EDT You will soon receive a call from our infusion scheduling provider (Mendoza, from a [phone] number) to arrange your infusion appointment days (likely on non- consecutive days such as Monday, Monday, and Monday). [...] Borrego, left the practice, please call the front deskto reestablish care with a new physician when you have the opportunity. Follow the above instructions as you prepare for your infusion and ongoing care. Infusions are done here at [facility]. Our infusion treatment room is where [...] classifications of medications we use are anti-histamines, anti- emetics, anti-seizures, smooth muscle relaxers, steroids, NSAIDS, and [...] more of an approximate time after she receivesthe orders from your provider. It is best to have a spotter driver, as some medications we use may cause drowsiness. If you do not have a spotter driver, please let your nurse know and [...] lunch, snack, or beverage. We do have somesodas, juices, and crackers if you prefer. The room is maintained at a dark and cool temperature, so layer clothing for comfort. We will need access to your arms for placement of an IV. Please refrain from wearing perfumes, colognes, and heavy scented lotions. documented in this encounterParkwood Hospital05-15-2025 History of Present illness Narrative* Curtis Lepe PA-C - 07/04/2024 11:00 AM EDT Images from the original note [...] visit. Either the patient or their legal kiosk sales representative has been informed of the [...] for severe nausea; will review patient's history andconsult with supervising physician before making a recommendation. - Advised patient on the anticholinergic effects of scopolamine and the importance of using it onlyfor severe cases. 3. Generalized anxiety disorder (F41.1) [...] for follow-up on migraine management. April was lastseen two months ago, following her most recent Vyepti infusion, which was not completed in full dueto an adverse reaction. She reports that she received approximately 66-70% of the infusion before ex periencing itching 20 minutes into the 30-minute procedure. [...] has experienced a significant increase in migraine frequencyand severity, necessitating four to five emergency room [...] She expresses a strong desire to find aarti effective treatment plan, stating, I need something, [...] each infusion. She does not endorse any hives,shortness of breath, or throat tightness. She suspects the itching may be related to anxiety triggered by the infusion, as she experiences similar symptoms with anxiety. She takes diazepam before theinfusions to manage anxiety. The itching resolves with IV Benadryl, and she suggests premedication with Benadryl before future infusions. Post follow-up message: It was nice to meet you last Monday. I spoke with Dr. Mas and she agreed with continuing Vyepti. Carold pretreating with oral Benadryl prior to your infusion. We can then administer IV Benadrylif you experience a reaction. You could consider [...] of psychogenic nonepileptic seizure disorder. The patient's mainhope is to try and provide some headache [...] and her having trazodone and Valium prior toarrival even though she did say she had an episode of emesis I felt uncomfortable doing any other benzodiazepines and she has been resolved spontaneously no loss of bowel or bladder function no otherconcern. We have given her the pain medications [...] XL, Qudexy) Anti-Depressant and Antipsychotic Amitriptyline (Elavil) [place] (Eskalith, Lithobid) Nortriptyline (Pamelor, Aventyl) Anti-Migraine Dihydroergotamine [...] ZOLMitriptan (ZOMIG) 5 mg nasal spray^Use 1 [place] in the nose as needed at onset [...] 2 2 3 OMID-7 Score 8 03/20/2024 05/03/202407/0407/04/2024 Migraine Specific QOL - Higher scores indicate [...] Lymph 1.00 - 4.00 k/uL 0.84 Abs Acadia <0.87 k/uL 0.06 Abs Eosin <0.46 k/uL [...] custodial memory, cognition and general fund of knowledgeare [...] reaction, Aimovig, Qulipta,adjunctive Botox, adjusting infusion plan Prior Authorization: April [...] XL, Qudexy) Anti-Depressant and Antipsychotic Amitriptyline (Elavil) [place] (Eskalith, Lithobid) Nortriptyline (Pamelor, Aventyl) Blood Pressure [...] course of IV infusions, and call office ([phone]) with problems or concerns before appointment Level of Service: Virtual Visit 32 minutes Recording using ambient [employer] software for draft documentation of the visit was discussed with the patient/authorized kiosk sales representative; all questions welcomed and answered. Patient/authorized kiosk sales representative agreed to proceed This note was partially generated using [employer] voice recognition system, and there may be some incorrect words, spellings, and punctuation that were not noted in checking the note before saving. Curtis Lepe PA-C Headache Section [facility] July 04, 2024 documented in this encounterParkwood Hospital05-15-2025 NoteHNO ID: [id number] Author: CURTIS LEPE PA-C Service: ? Author Type: Physician Supervisor Drying Type: Progress Notes Filed: 07/04/2024 13:48 Note [...] visit. Either the patient or their legal kiosk sales representative has been informed of the [...] their effectiveness. She identifies (more content not included)...[facility] 07-02-2024 Telephone encounter Note* Telephone Encounter - Vita Velez - 07/02/2024 2:17 PM EDT Checked portal for PA Auth#[id number] still pending. [facility] [id number] History of Present illness Narrative* Ammy Carrington, MERRICK - 07/01/2024 8:30 AM EDT Reason for Appointment: Patient ID: Margaret Nicholson is a 28 y.o. female who [...] in female 12/19/2022 Mixed bipolar I disorder ([facility]/HCC) 01/24/2023 Chronic migraine without aura without status migrainosus, not intractable ([facility]/HCC) 01/24/2023 Generalized anxiety disorder ([facility]/HCC) 01/24/2023 Persistent disorder of initiating or maintaining sleep 01/24/2023 Mild persistent asthma 01/24/2023 Polycystic ovaries 01/24/2023 Psychogenic nonepileptic seizure 01/24/2023 Class 3 severe obesity due to excess calories without serious comorbidity with body mass index (BMI) of 50.0 to 59.9 in adult 03/21/2023 Mild persistent asthma with (acute) exacerbation ([facility]) 10/10/2023 Fatigue 01/01/2024 Encounter for long-term [...] Acute exacerbation of asthma with allergic rhinitis ([facility]) Allergies Asthma At low risk for fall Bipolar affective, mixed (HCC) ([facility]) Change in blood pressure Cholecystitis 2008 Depressive disorder ([facility]) OMID (generalized anxiety disorder) ([facility]) History of hysterectomy 10/01/2021 Insomnia, persistent Migraines ([facility]) Mild persistent asthma without complication ([facility]) Morbid obesity with BMI of 40.0-44.9, adult ([facility]) PCOS (polycystic ovarian syndrome) Right otitis media Seizures ([facility]) HISTORY PAST MEDICAL HISTORY SOCIAL HISTORY Past Medical History: Diagnosis Date Acute exacerbation of asthma with allergic rhinitis ([facility]) Allergies Asthma At low risk for fall Bipolar affective, mixed (HCC) ([facility]) Change in blood pressure high and low Cholecystitis 2008 Chronic migraine without aura without status migrainosus, not intractable ([facility]) Depressive disorder ([facility]) OMID (generalized anxiety disorder) ([facility]) History of hysterectomy 10/01/2021 Insomnia, persistent Migraines ([facility]) Mild persistent asthma without complication ([facility]) Morbid obesity with BMI of 40.0-44.9, adult ([facility]) PCOS (polycystic ovarian syndrome) Psychogenic nonepileptic seizure Right otitis media Seizures ([facility]) stressed induced Social History Tobacco Use [...] complains of vaginal discharge/UTI. Dr Blas did avaginal check due to complains of pain along w/cx's. Upon examining Dr. Blas requests to send in Diflucan due to the yeast infection along w/Flagyl for BV. Dr. Blas is continuing to have patient stay on the estraidol however, patient is to take half of the tablet in the morning and the other halfin the evening to help w/her vaginal pain. PVU. Documented by Ammy Carrington MA on behalf of: Zay Blas DO documented in this encounterSaint Luke's North Hospital–Barry [id number] Telephone encounter Note* Telephone Encounter - Vita Velez - 06/25/2024 3:57 PM EDT Date initiated:06/25/2024 Insurance provider:Lyndsay Name of kiosk sales representative:portal(Urgent) Reference#:[id number] [facility] [id number] Telephone encounter Note* Telephone Encounter - Viktoria Walton MS, [facility] - 06/25/2024 2:43 PM EDT Please preauthorize this patient for: CPT code [...] insurance (private or state HMO): State HMO ([employer]) Secondary Medicaid too? (Y/N): No Did the patient apply for [facility]? (Y/N): No If Yes, is it approved (provide approval dates) or still waiting on approval?: no Is a new blood sample required?: No Special lab draw instructions (e.g. Must draw on Monday-Monday): n/a Order placement: Default release COMMENTS: [facility] Plan ID: [id number] [facility] [id number] Telephone encounter Note* Telephone Encounter - Viktoria Walton MS, PHILIP - 06/25/2024 2:36 PM EDT GENETIC COUNSELOR ASSESSMENT A consultation was requested [...] case with Gifty Reno MD's as needed priorto seeing the patient. 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 There is also a family history of learning delays, intellectual disability and autism in several of her other children who share different fathers as her daughter. The remainder of April's reported family history is negative for known or suspected genetic disease, defects, malformation syndromes, chromosomal disorders, developmental delay, intellectualdisability, infertility, recurrent loss, stillbirth, unexplained . Dr. [...] the possibility of providing a recurrence risk andprenatal test option for the family. Risks and limitations of genetic testing were discussed as well, including the sensitivity of the testing and possibility of receiving secondary findings and results of uncertain clinical significance. Post-test genetic counseling will be provided to the family,if requested. The family expressed understanding and asked appropriate questions during this discussion. This plan is being carried out per Gifty Reno MD's recommendations. This note will also be sent to the referring provider. Sincerely, Viktoria Walton MS, PHILIP Licensed, Certified Genetic Counselor [facility] [id number] Miscellaneous Notes* Telephone Encounter - Nirmala Lopez - 06/07/2024 1:17 PM EDT Contract: 148 No need to call documented in this encounterParma [facility]04-18-2025 Telephone encounter Note* Telephone Encounter - Nirmala Lopez - 06/07/2024 1:17 PM EDT Contract: 148 No need to call [facility]04-17-[facility] History of Present illness Narrative* Corine Gold MD - 06/06/2024 4:30 PM EDT Images from the original note were not included. [address] [place] [id number] Patient: April Nicholson Date of : [...] past medical history, past social history, past surgicalhistory and problem list. PHYSICAL EXAMINATION: Physical Exam [...] Visit via Real-time Synchronous Audiovisual Provider Location: [facility] [address] [place] [phone] Patient Location: Patient's home Video Visit Consent Statement: I discussed risks, benefits, and alternatives of a real-time synchronous audiovisual consultation with the patient (and any accompanying persons) including the risks that the patient's personal health details and medical records will be discussed over real-time, synchronous, interactive video/audio/telecommunication technology, the visit will not be recorded withoutthe express consent of both the provider and the patient, and that there are some limitations compared to shbi-vj-okkv evaluations. The patient consented to the presence of additional virtual and/or in-person participants. We elected to proceed. CORINE GOLD MD Family Medicine Physician [facility] 06/06/24 This note was completed with voice recognition software. The document was reviewed for errors however some may still be present. Please do not hesitate to contact/Epic [facility] the author to verify any questions/concerns. documented in this encounterMount Ascutney HospitalInstructure [id number] Telephone encounter Note* Telephone Encounter - Amy Shrestha MA - 06/03/2024 4:24 PM EDT Requesting refills as follows: Requested Prescriptions Pending [...] spray 12 each 5 Sig: Use 1 [place] in the nose as needed at onset of migraine headache. If symptoms persist or return, may repeat dose in other nostril after 2 hours. Maximum of 2 sprays per 24 hours Last visit 05/03/2024 with Sherif HERNANDEZ Next scheduled Visit date not found [facility]04-14-2025 Miscellaneous Notes* Telephone Encounter - Amy Shrestha MA - 06/03/2024 4:24 PM EDT Requesting refills as follows: Requested Prescriptions Pending [...] spray 12 each 5 Sig: Use 1 [place] in the nose as needed at onset of migraine headache. If symptoms persist or return, may repeat dose in other nostril after 2 hours. Maximum of 2 sprays per 24 hours Last visit 05/03/2024 with Sherif HERNANDEZ Next scheduled Visit date not found documented in this encounterParkwood Hospital04-01-2025 History of Present illness Narrative* Rajinder Cotton DO - 05/21/2024 9:30 AM EDT Images from the original note were not included. REPLACED BY [facility] [address] [place] [address] [place] [address] Patient: April Nicholson Date of : 1995 Encounter Date: 05/21/2024 Subjective: Chief Complaint Chief Complaint Patient presents with sinus infection History of Present Illness April Nicholson is a 28 y.o. female, established patient, that presents to the office for acute sinus congestion. History provided by patient. Sinus Problem This is a new problem. Episode onset: 4 days ago. Maximum temperature: [place] feverish. Associated symptoms include chills (With associated sweats), congestion, coughing, diaphoresis, ear pain, headaches (Located above eyes), a hoarse voice, shortness of breath, sinus pressure, sneezing and swollen glands. Pertinent negatives include no sore throat. Treatments tried: Benadryl at nighttime, claritinD. Asthma She complains of chest tightness, cough, [...] 106 Temp 36.6 C (97.8 F) (Oral) Wt107 kg (236 lb) LMP (LMP Unknown) SpO2 [...] and frontal sinus tenderness present. Mouth/Throat: Lips: Brow[place]. No lesions. Mouth: Mucous membranes are moist. [...] 03/25/2024 Prolonged emergence from general anesthesia Seizure ([facility]) Last one 03-11-2024 Past Surgical History: Procedure Laterality Date APPENDECTOMY SECTION CHOLECYSTECTOMY [facility] LYSIS OF ADHESIONS N/A 03/28/2024 Performed by Mundo Martinez MD at [facility]5 LYSIS OF ADHESIONS N/A 03/28/2024 Performed by Jesse Sultana MD at [facility]5 SALPINGO OOPHORECTOMY/FROZEN SECTION Bilateral 03/28/2024 Performed by [...] Physical Activity: Insufficiently Active (01/23/2024) Received from [facility] Exercise Vital Sign Days of Exercise per Week: 7 days Minutes of Exercise per Session: 10 min Stress: Stress Concern Present (01/23/2024) Received from [facility] [place] of Occupational Health - Occupational Stress Questionnaire Feeling of Stress : Rather much Social Connections: Socially Integrated (01/23/2024) Received from [facility] Social Connection and Isolation Panel [NHANES] Frequency of Communication with Friends and Family: More than three times a week Frequency of Social Gatherings with Friends and Family: Twice a week Attends [employer]: More than 4 times per year [...] every6 (six) hours as needed for pain. albuterol [...] mg total) by mouth in the morning. mlajmkpqima-ukbrrjekq-hwmqimwe (TRELEGY ELLIPTA) 200-62.5-25 mcg blister with device [...] that she has experienced, have elected to starther on an antibiotic Augmentin 875/1251 tablet twice daily for 10 days to treat for a bacterial sinus infection as we will cover respiratory pathogens. Continue with Claritin D 1 tablet daily as needed for nasal symptoms. For breathing, in addition to the antibiotic we will start on prednisone 20 mg 1 tablet daily for 5days. She is to continue to use her nebulizer machine up to every 4 hours as needed for shortness of breath and wheezing. He is also to continue with Trelegy inhaler 1 puff daily. Patient with multiple allergies to medications including antibiotics and dexamethasone. Reviewed with patient if she had previous reactions to either Augmentin or prednisone which she denied prior tosend new prescriptions into the pharmacy. Patient states that she does get antibiotic induced vaginal yeast infection so fluconazole 150 mg 1tablet by mouth once was prescribed for her to take as needed for yeast infection. Patient Instructions Start on antibiotic Augmentin 875/125 mg 1 tablet twice daily for 10 days. Continue with Claritin-D1 tablet daily as needed for nasal congestion. Added oral prednisone 20 mg daily for 5 days for increased respiratory symptoms. Continue with albuterol nebulizer treatments every 4 hrs as needed as well as trelegy inhaled daily Prescribed fluconazole to take if develops yeast infection from antibiotics Follow up: Keep June 06, 2024 appointment - Rajinder Cotton DO 05/21/24 10:30 AM documented in this encounterSelect Medical Specialty Hospital - AkronGiftah Beaumont [id number] Instructions* Patient Instructions* Rajinder Cotton DO - 05/21/2024 9:30 AM EDT Start on antibiotic Augmentin 875/125 mg 1 tablet twice daily for 10 days. Continue with Claritin-D1 tablet daily as needed for nasal congestion. Added oral prednisone 20 mg daily for 5 days for increased respiratory symptoms. Continue with albuterol nebulizer treatments every 4 hrs as needed as well as trelegy inhaled daily Prescribed fluconazole to take if develops yeast infection from antibiotics documented in this encounterParma [facility] Hospital03-26-2025 History of Present illness Narrative* MARY Cintron - 05/15/2024 8:30 AM EDT Subjective: April Nicholson is a 28 y.o. female who is s/p a laparoscopic BSO, FANNY on 03/28/24. Pathology: benign She unfortunately was admitted to [facility] on 04/08/24 after experiencing high fevers despite being on antibiotics. She was diagnosed with peritonitis and possible abscess. This was drained and she was placed on antibiotics which she completed that at home upon discharge. She has struggled with pain in wound healing over the next several weeks with extensive medication counseling provided. She presentstoday in good spirits and states she is no longer taking pain medication, pain is resolved, overallfeeling much better. She is having trouble with [...] History: Procedure Laterality Date APPENDECTOMY SECTION CHOLECYSTECTOMY [facility] LYSIS OF ADHESIONS N/A 03/28/2024 Performed by Mundo Martinez MD at [facility] DV5 LYSIS OF ADHESIONS N/A 03/28/2024 Performed by Jesse Sultana MD at [facility] DV5 SALPINGO OOPHORECTOMY/FROZEN SECTION Bilateral 03/28/2024 Performed by Mundo Martinez MD at [facility] DILATION AND CURETTAGE OF UTERUS PARTIAL HYSTERECTOMY [...] Physical Activity: Insufficiently Active (01/23/2024) Received from [facility] Exercise Vital Sign Days of Exercise per Week: 7 days Minutes of Exercise per Session: 10 min Stress: Stress Concern Present (01/23/2024) Received from [facility] [employer] [place] of Occupational Health - Occupational Stress Questionnaire Feeling of Stress : Rather much Social Connections: Socially Integrated (01/23/2024) Received from [facility] Social Connection and Isolation Panel [NHANES] Frequency of Communication with Friends and Family: More than three times a week Frequency of Social Gatherings with Friends and Family: Twice a week Attends [employer]: More than 4 times per year [...] anomaly not found LOC (loss of consciousness) ([facility]) Migraine with aura and without status [...] increase in adverse events including stroke, heart attack,DVT, breast cancer in oral estradiol use vs transdermal. She accepts these risks and would like to switch to a daily estrogen tablet. This may be continued by her PCP or primary medical device sales representative. Estradiol 1 mg tablet once daily PO. *The patient has a documented plan of care to address pain. All questions were answered to the patient's satisfaction. She is agreeable to this plan of care. *This note was completed using a voice family medicine chair system. Every effort was made to ensure accuracy. However, inadvertent computerized family medicine chair errors may be present. .Total time spent was 15 minutes: Preparing to see the patient (e.g., review of tests) Performing a medically appropriate examination and/or evaluation Counseling and educating the patient/family/caregiver Ordering medications, tests, or procedures Documenting clinical information in the electronic or other health record Care coordination (not separately reported) Svetlana Ye PA-C, RD, IF MARY Cintron 05/15/24 0913 documented in this encounterMount Ascutney HospitalInstructure [id number] Telephone encounter Note* Telephone Encounter - Angely Cotton RN - 05/13/2024 9:19 AM EDT Ambulatory Pharmacy Prior Authorization Note Provider Intervention Required?: No - Pharmacy completed on your behalf. Was the PA documented within the [facility] workqueue?: No Rx Plan: Medicaid [facility] Drug: Ubrelvy 100MG tablets Cover My Meds Chong: [id number] Determination: Approved Prior Authorization/Case #: [id number] Prior Authorization Expiration: 05/07/24 Time to PA [...] no interruption in patient's ability to obtain medic ation refills. Prescriptions will now be processed through [facility] for determination of next steps. For questions relating to this submission, please contact [facility] at [phone] [facility] Work Phone: [phone] Miscellaneous Notes* Telephone Encounter - Angely Cotton RN - 05/13/2024 9:19 AM EDT Ambulatory Pharmacy Prior Authorization Note Provider Intervention Required?: No - Pharmacy completed on your behalf. Was the PA documented within the [employer] workqueue?: No Rx Plan: Medicaid MCO ([place]) Drug: Ubrelvy 100MG tablets Cover My Meds Chong: [id number] Determination: Approved Prior Authorization/Case #: [id number] Prior Authorization Expiration: 05/07/24 Time to PA [...] no interruption in patient's ability to obtain medic ation refills. Prescriptions will now be processed through [facility] for determination of next steps. For questions relating to this submission, please contact [facility] at [phone] * Telephone Encounter - Angely Cotton RN - 05/08/2024 3:20 PM EDT [facility] received prescription(s) for Ubrelvy 100MG tablets . Benefits investigation was conducted, indicating that a prior authorization is required. All pertinent clinical information was submitted to insurance. Epic- Referral # [id number] Angely Cotton RN [facility] P: , F: * Telephone Encounter - Angely Cotton RN - 05/07/2024 10:[address] Lepe , Pt's ubrelvy needs a PA . I am unable to complete a PA since your office note is unfinished. Pleaselet me know when you have completed it and I will put in the PA tio. Thanks! Angely Cotton RN [facility] P: , F: documented in this encounterParkwood Hospital03-19-2025 Telephone encounter Note * Telephone Encounter - Angely Cotton RN - 05/08/2024 3:20 PM EDT [facility] received prescription(s) for Ubrelvy 100MG tablets . Benefits investigation was conducted, indicating that a prior authorization is required. All pertinent clinical information was submitted to insurance. Epic- Referral # [id number] Angely Cotton RN [facility] P: , F: [facility]03-18-2025 Telephone encounter Note* Telephone Encounter - Angely Cotton RN - 05/07/2024 10:[address] Lepe , Pt's ubrelvy needs a PA . I am unable to complete a PA since your office note is unfinished. Pleaselet me know when you have completed it and I will put in the PA tio. Thanks! Angely Cotton RN [facility] P: , F: [facility]03-14-2025 Instructions* Patient Instructions* Curtis Lepe PA-C - 05/03/2024 9:57 AM EDT Ubrogepant (Ubrelvy) 50 mg or 100 mg tablet CGRP antagonist. Take 1 tablet at onset of migraine/headache. May repeat dose in 2 hours if needed. Do NOT take morethan 2 tablets in 24 hours. Max dose is 200 mg in 24 hours. Potential side effects include drowsiness, nausea and dry mouth. PATIENT ASSISTANCE PROGRAM (PAP): [email or web address]://[email or web address]/patients/patient-support/patient-assistance /eligibility-criteria.html#myabbvie - Start taking Ubrelvy as prescribed for [...] your clinician as needed. documented in this encounterParkwood Hospital03-14-2025 History of Present illness Narrative* Curtis Leep PA-C - 05/03/2024 9:30 AM EDT Images from the original [...] visit. Either the patient or their legal kiosk sales representative has been informed of the [...] each infusion. She does not endorse any hives,shortness of breath, or throat tightness. She suspects the itching may be related to anxiety triggered by the infusion, as she experiences similar symptoms with anxiety. She takes diazepam before theinfusions to manage anxiety. The itching resolves with [...] is important to discuss current medications and considerwhether Vyepti is an appropriate medication to continue, [...] XL, Qudexy) Anti-Depressant and Antipsychotic Amitriptyline (Elavil) [place] (Eskalith, Lithobid) Nortriptyline (Pamelor, Aventyl) Anti-Migraine Dihydroergotamine [...] ZOLMitriptan (ZOMIG) 5 mg nasal spray^Use 1 [place] in the nose as needed at onset [...] Lymph 1.00 - 4.00 k/uL 0.84 Abs [place] <0.87 k/uL 0.06 Abs Eosin <0.46 k/uL [...] spontaneous and fluent without dysarthria. 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 - Advised patient on the anticholinergic effects of scopolamine and the importance of using it onlyfor severe cases. 3. Generalized anxiety disorder (F41.1) [...] XL, Qudexy) Anti-Depressant and Antipsychotic Amitriptyline (Elavil) [place] (Eskalith, Lithobid) Nortriptyline (Pamelor, Aventyl) Blood Pressure [...] XL, Qudexy) Anti-Depressant and Antipsychotic Amitriptyline (Elavil) [place] (Eskalith, Lithobid) Nortriptyline (Pamelor, Aventyl) Blood Pressure [...] time Follow-up: 2 months and call office ([phone]) with problems or concerns before appointment Level of Service: Virtual Visit 35 minutes The patient consented to the use of [employer] software for draft documentation of the visit consistent with [facility] s Notice of Privacy Practices. This note was partially generated using [employer] voice recognition system, and there may be some incorrect words, spellings, and punctuation that were not noted in checking the note before saving. Curtis Lepe PA-C Headache Section [facility] May 03, 2024 documented in this encounterParkwood Hospital03-14-2025 NoteHNO ID: [id number] Author: CURTIS LEPE PA-C Service: ? Author Type: Physician Supervisor Drying Type: Progress Notes Filed: 05/08/2024 00:02 Note [...] visit. Either the patient or their legal kiosk sales representative has been informed of the [...] Migraine headache severity: 10/ (more content not included)...[facility]03-13-2025 NoteHNO ID: [id number] Author: CLAUDIA MAYNARD RN Service: ? Author [...] and agreeable to plan. Patient discharged to spotter driver.[facility]03-13-2025 History of Present illness Narrative* Claudia Maynard RN - 05/02/2024 10:31 AM EDT Patient arrived to infusion suite rating pain [...] is important to discuss current medications and considerwhether Vyepti is an appropriate medication to continue, considering the past 3 of 3 vyepti infusions, patient has had similar reactions. VS remained stable, 129/72, 93bpm. Itchiness completely resolved before discharge. Zofran given for nausea, toradol given for pain. POD aware and agreeable to plan. Patient discharged to spotter driver. documented in this encounterParkwood Hospital03-11-2025 Miscellaneous Notes* Telephone Encounter - Caterina Smith CMA - 04/30/2024 8:41 AM EDT Attempted to contact patient regarding refill sent in. No answer, left voicemail. documented in this [facility]Par[facility] Telephone encounter Note* Telephone Encounter - Caterina Smith CMA - 04/30/2024 8:41 AM EDT Attempted to contact patient regarding refill sent in. No answer, left voicemail. [facility]03-10[facility] History of Present illness Narrative* MARY Cintron - 04/29/2024 2:20 PM EDT Patient called asking for refill of oxycodone for post op pain. Upon reviewing her OARRS it would appear she had Tylenol III refilled last week at [facility] [place], [place]. Discussed this with patient who states she never picked this medication. Reminded patient that in previous documented discussionwe instructed her to no longer take Tylenol [...] that prescription was never picked up and sheis not taking it. She states she is [...] post op pain. She expressed understanding. [facility] after completing phone call with patient. Pharmacy staff confirmed prescription for Tylenol III was picked up on 3/3/25 with a receipt available to view. MARY Cintron 04/29/24 1440 documented in this encounterParma [facility] Hospital03-10-2025 History of Present illness Narrative* SARAHI Champion - 04/29/2024 9:18 AM EDT The OARRS/MAPPS database was reviewed today and found to be appropriate. No indication of medication diversion, or non compliance. SARAHI Champion 04/29/24 0918 documented in this encounterParma [facility]03-06-2025 History of Present illness Narrative* Corine Gold MD - 04/25/2024 1:00 PM EST Images from the original note were not included. [address] [place] [address] D [facility] [id number] Patient: April Nicholson Date of : 1995 Encounter Date: 04/25/2024 SUBJECTIVE: HISTORY OF PRESENT ILLNESS: Chief Complaint: Chief Complaint Patient presents with [facility] Care Patient ID: April is a 28 y.o. [...] had fevers required IV antibiotics in the hospitaland oral antibiotics with ongoing concerns for wound dehiscence. She continues to report some serosanguineous drainage from the incision site. Appears to have been exacerbated by recent URI and ongoing cough which was straining her location. Was using oxycodone and ibuprofen for pain control. 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 Has episodes of zoning out. No history of Sleep Study Support system is fragmented -parents -Spiritism -2 fathers of childrens - not interested in being involved. PAST MEDICAL HISTORY: Past Medical History: Diagnosis Date Anxiety Asthma BV (bacterial vaginosis) Depression Migraine 15 days out of the month-receives an infusion every 3 months MRSA (methicillin resistant Staphylococcus aureus) In a buttocks wound in 8th grade Ovarian cyst, bilateral 03/25/2024 Prolonged emergence from general anesthesia Seizure ([facility]) Last one 03-11-2024 PAST SURGICAL HISTORY: Past Surgical History: Procedure Laterality Date APPENDECTOMY SECTION CHOLECYSTECTOMY [facility] DV5 LYSIS OF ADHESIONS N/A 03/28/2024 Performed by Mundo Martinez MD at [facility] DV5 LYSIS OF ADHESIONS N/A 03/28/2024 Performed by Jesse Sultana MD at [facility] [place] OOPHORECTOMY/FROZEN SECTION Bilateral 03/28/2024 Performed by Mundo Martinez MD at [facility] DILATION AND CURETTAGE OF UTERUS PARTIAL HYSTERECTOMY [...] Physical Activity: Insufficiently Active (01/23/2024) Received from [facility] Exercise Vital Sign Days of Exercise per Week: 7 days Minutes of Exercise per Session: 10 min Stress: Stress Concern Present (01/23/2024) Received from [facility] of Occupational Health - Occupational Stress Questionnaire Feeling of Stress : Rather much Social Connections: Socially Integrated (01/23/2024) Received from [facility] Social Connection and Isolation Panel [NHANES] Frequency of Communication with Friends and Family: More than three times a week Frequency of Social Gatherings with Friends and Family: Twice a week Attends [employer] [facility]: More than 4 times per year [...] TWO PUFFS BY MOUTH EVERY 4 HOURS TUKKSS24 g 1 cetirizine (ZyrTEC) 10 mg tablet Take 1 tablet (10 mg total) by mouth in the morning. 30 tablet 0 diazePAM (VALIUM) 10 mg tablet Take 0.5 tablets (5 mg total) by mouth in the morning and at bedtime. agmiudhhtsa-qlgecscfz-cmbsuwpv (TRELEGY ELLIPTA) 200-62.5-25 mcg blister with device [...] is no right CVA tenderness, left CVA tendernessor guarding. Musculoskeletal: Cervical back: Normal range of [...] unremarkable. CORINE GOLD MD Family Medicine Physician [facility] / [facility] 04/25/24 This note was completed with voice recognition software. The document was reviewed for errors however some may still be present. Please do not hesitate to contact/Epic ms the author to verify any questions/concerns. documented in this encounterParma [facility] Hospital03-05-2025 History of Present illness Narrative* Alice Wright RN - 04/24/2024 3:13 PM EST Images from the original note were not included. [facility] notified. Spoke with Leonie. MARY Cintron RN Up to twice daily, thanks! Previous Messages ----- Message ----- From: Alice Wright RN Sent: 04/24/2024 2:17 PM EST To: MARY Cintron [facility] pharmacy called for clarification on the lidocaine cream. How many times a day can she the cream? Please advise. Thank you, Rubi documented in this [facility]03-05-2025 History of Present illness Narrative* MARY Cintron - 04/24/2024 9:30 AM EST Subjective: April Nicholson is a 28 y.o. female who is s/p a laparoscopic BSO, FANNY on 03/28/24. Pathology: benign She unfortunately was admitted to [facility] on 04/08/24 after experiencing high fevers despite being on antibiotics. The patient stated that she completed a 7-day course of clindamycin post-operatively. Oneday prior to presentation to the ED, the patient had been evaluated at [facility] and was given 1 dose of bactrim [...] cocci. The wound was packed with lodoform s trips and dressings placed, which were changed at appropriate intervals. The patient was transitioned to PO Augmentin. Patient subjectively improved as her pain was better controlled with PRN pain medication and nausea controlled with PRN Zofran. Patient was spontaneously ambulating on assessments.She passed flatus and had a bowel movement [...] 03/28/2024 Performed by Mundo Martinez MD at [facility] DV5 LYSIS OF ADHESIONS N/A 03/28/2024 Performed by Jesse Sultana MD at [facility] [place] OOPHORECTOMY/FROZEN SECTION Bilateral 03/28/2024 Performed by Mundo Martinez MD at [facility] DILATION AND CURETTAGE OF UTERUS PARTIAL HYSTERECTOMY [...] Physical Activity: Insufficiently Active (01/23/2024) Received from [facility] Exercise Vital Sign Days of Exercise per Week: 7 days Minutes of Exercise per Session: 10 min Stress: Stress Concern Present (01/23/2024) Received from [facility] [employer] of Occupational Health - Occupational Stress Questionnaire Feeling of Stress : Rather much Social Connections: Socially Integrated (01/23/2024) Received from [facility] Social Connection and Isolation Panel [NHANES] Frequency of Communication with Friends and Family: More than three times a week Frequency of Social Gatherings with Friends and Family: Twice a week Attends [facility]: More than 4 times per year [...] anomaly not found LOC (loss of consciousness) ([facility]) Migraine with aura and without status migrainosus, not intractable Bilateral occipital neuralgia Asthma without status asthmaticus Anxiety Depressive disorder Seizure-like activity ([facility]) Simple partial seizure disorder ([facility]) Psychogenic nonepileptic seizure Acute cough S/P [...] 5mg every 4-6 hours, alternating with ibuprofen. Continuesto discuss medication safety and potential side effects. Menopausal symptoms: Currently on estradiol 0.05 mg patches twice weekly. *The patient has a documented plan of care to address pain. All questions were answered to the patient's satisfaction. She is agreeable to this plan of care. *This note was completed using a voice family medicine chair system. Every effort was made to ensure accuracy. However, inadvertent computerized family medicine chair errors may be present. .Total time spent was 35 minutes: Preparing to see the patient (e.g., review of tests) Performing a medically appropriate examination and/or evaluation Counseling and educating the patient/family/caregiver Ordering medications, tests, or procedures Documenting clinical information in the electronic or other health record Care coordination (not separately reported) Svetlana Ye PA-C, RD, IF MARY Cintron 04/24/24 1228 documented in this encounterParma [facility]03-[facility]-2025 Telephone encounter Note* Telephone Encounter - Mendoza Dooley - 04/22/2024 4:23 PM EST Calls were returned to patient. Patient is scheduled for vyepti [facility]03-03-2025 Miscellaneous Notes* Telephone Encounter - Mendoza Dooley - 04/22/2024 4:23 PM EST Calls were returned to patient. Patient is scheduled for vyepti documented in this encounterParkwood Hospital02-25-2025 History of Present illness Narrative* Yumiko Worrell LPN - 04/16/2024 8:30 AM EST Reason for Appointment: Patient ID: Margaret Nicholson is a 28 y.o. female who [...] in female 12/19/2022 Mixed bipolar I disorder ([facility]) 01/24/2023 Chronic migraine without aura without status migrainosus, not intractable ([facility]) 01/24/2023 Generalized anxiety disorder ([facility]) 01/24/2023 Persistent disorder of initiating or maintaining sleep 01/24/2023 Mild persistent asthma ([facility]) 01/24/2023 Polycystic ovaries 01/24/2023 Psychogenic nonepileptic seizure ([facility]) 01/24/2023 Class 3 severe obesity due to excess calories without serious comorbidity with body mass index (BMI) of 50.0 to 59.9 in adult ([facility]) 03/21/2023 Mild persistent asthma with (acute) exacerbation ([facility]) 10/10/2023 Fatigue 01/01/2024 Encounter for long-term [...] Acute exacerbation of asthma with allergic rhinitis ([facility]) Allergies Asthma ([facility]) At low risk for fall Bipolar affective, mixed (HCC) ([facility]) Change in blood pressure Cholecystitis 2009 Depressive disorder ([facility]) OMID (generalized anxiety disorder) ([facility]) History of hysterectomy 10/01/2021 Insomnia, persistent Migraines ([facility]) Mild persistent asthma without complication ([facility]) Morbid obesity with BMI of 40.0-44.9, adult ([facility]) PCOS (polycystic ovarian syndrome) Right otitis media Seizures ([facility]) HISTORY PAST MEDICAL HISTORY SOCIAL HISTORY Past Medical History: Diagnosis Date Acute exacerbation of asthma with allergic rhinitis ([facility]) Allergies Asthma ([facility]) At low risk for fall Bipolar affective, mixed (HCC) ([facility]) Change in blood pressure high and low Cholecystitis 2008 Chronic migraine without aura without status migrainosus, not intractable ([facility]) Depressive disorder ([facility]) OMID (generalized anxiety disorder) ([facility]) History of hysterectomy 10/01/2021 Insomnia, persistent Migraines ([facility]) Mild persistent asthma without complication ([facility]) Morbid obesity with BMI of 40.0-44.9, adult ([facility]) PCOS (polycystic ovarian syndrome) Psychogenic nonepileptic seizure ([facility]) Right otitis media Seizures ([facility]) stressed induced Social History Tobacco Use [...] nursing note reviewed. Exam conducted with a sky cap present. Vitals: Estimated body mass index is [...] of: Zay Blas DO documented in this encounterSaint [facility] Hospital[facility] [id number] History of Present illness Narrative* MARY Cintron - 04/15/2024 9:00 AM EST Subjective: April Nicholson is a 28 y.o. female who is s/p a laparoscopic BSO, FANNY on 03/28/24. Pathology: benign She unfortunately was admitted to [facility] on 04/08/24 after experiencing high fevers despite being on antibiotics. The patient stated that she completed a 7-day course of clindamycin post-operatively. Oneday prior to presentation to the ED, the patient had been evaluated at [facility] and was given 1 dose of bactrim [...] cocci. The wound was packed with lodoform s trips and dressings placed, which were changed at appropriate intervals. The patient was transitioned to PO Augmentin. Patient subjectively improved as her pain was better controlled with PRN pain medication and nausea controlled with PRN Zofran. Patient was spontaneously ambulating on assessments.She passed flatus and had a bowel movement [...] reports nausea related to her headaches, scopolamine patchesare helpful. She feels her hot flashes are moderately controlled, but the patches are not sticking.She is using tagaderm to keep them in [...] History: Procedure Laterality Date APPENDECTOMY SECTION CHOLECYSTECTOMY [place] [address] LYSIS OF ADHESIONS N/A 03/28/2024 Performed by Mundo Martinez MD at [place] [address] LYSIS OF ADHESIONS N/A 03/28/2024 Performed by Jesse Sultana MD at [place] [address] [place] OOPHORECTOMY/FROZEN SECTION Bilateral 03/28/2024 Performed by Mundo Martinez MD at [facility] DILATION AND CURETTAGE OF UTERUS PARTIAL HYSTERECTOMY 10/01/2021 TUBAL LIGATION Past Medical History: Diagnosis Date Anxiety Asthma BV (bacterial vaginosis) Depression Migraine 15 days out of the month-receives an infusion every 3 months MRSA (methicillin resistant Staphylococcus aureus) In a buttocks wound in 8th grade Ovarian cyst, bilateral 03/25/2024 Prolonged emergence from general anesthesia Seizure ([facility]) Last one 03-11-2024 Family History Problem Relation [...] Physical Activity: Insufficiently Active (01/23/2024) Received from [facility] Exercise Vital Sign Days of Exercise per Week: 7 days Minutes of Exercise per Session: 10 min Stress: Stress Concern Present (01/23/2024) Received from [facility] of Occupational Health - Occupational Stress Questionnaire Feeling of Stress : Rather much Social Connections: Socially Integrated (01/23/2024) Received from [facility] Social Connection and Isolation Panel [NHANES] Frequency of Communication with Friends and Family: More than three times a week Frequency of Social Gatherings with Friends and Family: Twice a week Attends [facility]: More than 4 times per year [...] anomaly not found LOC (loss of consciousness) ([facility]) Migraine with aura and without status migrainosus, not intractable Bilateral occipital neuralgia Asthma without status asthmaticus Anxiety Depressive disorder Seizure-like activity ([facility]) Simple partial seizure disorder ([facility]) Psychogenic nonepileptic seizure Acute cough S/P bilateral [...] switching over to estradiol pills. Discussed the safetyof ERT patches vs pills today with preference to keep her on patches if possible. Counseled her on proper application and use as well as potential side effects. *The patient has a documented plan of care to address pain. All questions were answered to the patient's satisfaction. She is agreeable to this plan of care. *This note was completed using a voice family medicine chair system. Every effort was made to ensure accuracy. However, inadvertent computerized family medicine chair errors may be present. .Total time spent was 35 minutes: Preparing to see the patient (e.g., review of tests) Performing a medically appropriate examination and/or evaluation Counseling and educating the patient/family/caregiver Ordering medications, tests, or procedures Documenting clinical information in the electronic or other health record Care coordination (not separately reported) Svetlana Ye PA-C, RD, IF MARY Cintron 04/16/24 1237 documented in this encounterSelect Medical Specialty Hospital - AkronBi02 Medical02-19-2025 Progress note* Discharge Planning Note - Desiree Theodore RN - 04/10/2024 3:04 PM EST DISCHARGE PLANNING NOTE Patient's RN reported that patient would like a rolling walker at discharge, Referral placed on [employer] with script and face to face documentation attached with a requestof delivery to patient's room today for discharge. [employer] will follow for discharge transition - DESIREE THEODORE RN 04/10/24 3:05 PM [facility] [id number] Miscellaneous Notes* Discharge Planning Note - Desiree Theodore RN - 04/10/2024 3:04 PM EST DISCHARGE PLANNING NOTE Patient's RN reported that patient would like a rolling walker at discharge, Referral placed on [employer] with script and face to face documentation attached with a requestof delivery to patient's room today for discharge. [employer] will follow for discharge transition - DESIREE THEODORE RN 04/10/24 3:05 PM * Discharge Planning Note - Trudi Patel - 04/10/2024 11:15 AM EST DISCHARGE PLANNING NOTE Referral sent to multiple facilities or agencies due to patient insurance type/difficult placement/patient is without preference. * Discharge Planning Note - Nicky Buchanan RN - 04/10/2024 10:35 AM EST DISCHARGE PLANNING NOTE Per RN during discharge transition rounds, barriers to discharge are: No barriers. [place] [facility]. Patient states that she is not comfortable doing her own wound care. Has family that assist 4-5 times per week with wound care. Discharge Plan: Plan is home with HCC if able to find company to agree to care. Will arrange outpatient wound care if unable to find accepting HCC. [employer] will continue to follow for any discharge needs. - Nicky Buchanan RN 04/10/24 10:38 AM * Plan of Care - Effie Keene RN - 04/10/2024 8:07 AM EST Problem: Pain Goal: Patient goal is pain score less than 4, able to rest, and participant in treatment plan as appropriate Description: INTERVENTIONS: 1. Encourage patient or legal kiosk sales representative to report early pain and [...] per policy 9. Teach patient or legal kiosk sales representative interventions for comforting Outcome: Progressing [...] at the bedside 7. Instruct patient/ patient kiosk sales representative about use of safety devices 8. Include patient/ patient kiosk sales representative in decisions related to safety [...] hygiene technique. 7. Identify and instruct patient/patient kiosk sales representative in use of appropriate isolation precautionsfor identified infection/symptoms. 8. Provide and discuss with patient/patient kiosk sales representative on educational MDRO sheet. 9. Encourage and monitor nutritional status daily and consult orchard worker if indicated. 10. Implement neutropenic guidelines as needed. Outcome: Progressing Note: Evaluation of progress towards goal: Patient afebrile, vital signs stable at this time. Continuing to monitor. Problem: Knowledge Deficit Goal: Patient/patient kiosk sales representative demonstrates understanding of disease process, treatment plan,medications, and discharge instructions Description: INTERVENTIONS 1. Complete [...] Score of =/> 25 or indicated by [facility] Assessment Goal: Patient should be free from fall Description: Interventions: 1. [place] to environment 2. Hourly rounds addressing the [...] non-skid footwear 11. Teach patient and patient kiosk sales representative to maintain environment for safety [...] (cane, walker) within reach 19. Request patient kiosk sales representative bring adaptive equipment/mobility aids from home or obtain and provide as needed 20. Consult pharmacy regarding effects of med's affecting mobility, cognition, and alternatives 21. Obtain physician order for PT if risk factors associated with mobility are present 22. Obtain physician order for OT as appropriate 23. Utilize diversional activities 24. Educate patient and patient kiosk sales representative how to maintain a safe environment during visitationtimes (notify nurse prior to leaving bedside) 25. Consider appropriateness of medical or non-medical equipment sales 26. Set up voiding schedule as appropriate (every 2 hours) Outcome: Progressing Note: Evaluation of progress towards goal: Patient remains free from falls at this time. Interventions in place to help prevent falls. Continuing to monitor. Problem: Low Risk Fall Score Description: Nath Fall Score of 0 - 24 [facility] Goal: Patient should be free from fall Description: Interventions: 1. [place] to environment 2. Hourly rounds addressing the [...] non-skid footwear 11. Teach patient and patient kiosk sales representative to maintain environment for safety and engage in all aspects of fall prevention program Outcome: Progressing Note: Evaluation of progress towards goal: Patient remains free from falls at this time. Interventions in place to help prevent falls. Continuing to monitor. * Plan of Care - Corby Bojorquez RN - 04/09/2024 7:31 PM EST Problem: Pain Goal: Patient goal is pain score less than 4, able to rest, and participant in treatment plan as appropriate Description: INTERVENTIONS: 1. Encourage patient or legal kiosk sales representative to report early pain and [...] per policy 9. Teach patient or legal kiosk sales representative interventions for comforting Outcome: Progressing Note: Evaluation of progress towards goal: Pharmacological and non- pharmacological interventions utilized to optimize pain mgmt Problem: [...] at the bedside 7. Instruct patient/ patient kiosk sales representative about use of safety devices 8. Include patient/ patient kiosk sales representative in decisions related to safety [...] hygiene technique. 7. Identify and instruct patient/patient kiosk sales representative in use of appropriate isolation precautionsfor identified infection/symptoms. 8. Provide and discuss with patient/patient kiosk sales representative on educational MDRO sheet. 9. Encourage and monitor nutritional status daily and consult orchard worker if indicated. 10. Implement neutropenic guidelines as needed. Outcome: Progressing Note: Evaluation of progress towards goal: Standard precautions and hand hygiene used to prevent infection Problem: Knowledge Deficit Goal: Patient/patient kiosk sales representative demonstrates understanding of disease process, treatment plan,medications, and discharge instructions Description: INTERVENTIONS 1. Complete [...] anxiety both physical and emotional (heart palpitations, chestpain, shortness of breath, headaches, nausea, feeling jumpy, [...] Collaborate with ancillary departments 14. Include patient/patient kiosk sales representative in decisions related to anxiety [...] Score of =/> 25 or indicated by [facility] Assessment Goal: Patient should be free from fall Description: Interventions: 1. [place] to environment 2. Hourly rounds addressing the [...] non-skid footwear 11. Teach patient and patient kiosk sales representative to maintain environment for safety [...] (cane, walker) within reach 19. Request patient kiosk sales representative bring adaptive equipment/mobility aids from home or obtain and provide as needed 20. Consult pharmacy regarding effects of med's affecting mobility, cognition, and alternatives 21. Obtain physician order for PT if risk factors associated with mobility are present 22. Obtain physician order for OT as appropriate 23. Utilize diversional activities 24. Educate patient and patient kiosk sales representative how to maintain a safe environment during visitationtimes (notify nurse prior to leaving bedside) 25. Consider appropriateness of medical or non-medical equipment sales 26. Set up voiding schedule as appropriate (every 2 hours) Outcome: Progressing Note: Evaluation of progress towards goal: Interventions in cares/safety in place Problem: Skin/Tissue Integrity - Adult Goal: Incisions, wounds, or drain sites healing without S/S of infection Description: INTERVENTIONS 1. ADMISSION & EVERY SHIFT: Assess and document risk factors for pressure ulcer development utilizing the Roemo/Romeo Q scale 2. Assess and document skin [...] care 6. Collaborate with pastoral/spiritual care, social and political studies professor, mental health counselor as needed. 7. Instruct patient on diversional activities such as physical activity, distraction, and deep breathing exercises to assist with coping 8. Involve patient's kiosk sales representative in care Outcome: Completed Note: Evaluation of progress towards goal: completed * Discharge Planning Note - Nicky Buchanan RN - 04/09/2024 2:58 PM EST DISCHARGE PLANNING NOTE Update: [facility] unable to accept. [facility] for [facility] per patient choice sent. Waiting on reply. - Nicky Buchanan RN 04/09/24 2:59 PM * Discharge Planning Note - Nicky Buchanan RN - 04/09/2024 10:45 AM EST DISCHARGE PLANNING NOTE Ethylene Compressor Operator met with patient, introduced self, and explained role. Patient educated on safe discharge plan. Pt admitted 04/08/2024 with Abdominal wall cellulitis [L03.311] Sepsis ([facility]) [A41.9] Postoperative surgical complication involving genitourinary system [...] 03/25/2024 Prolonged emergence from general anesthesia Seizure ([facility]) Last one 03-11-2024 Prior to admission patient was living with family and self care. Medical equipment patient used prior to admission includes: None. Patient denies need for transportation/ food/ prescription medication assistance resources. Patient lives with minor children and boyfriend. Has support from mother. Referral sent to [facility] per patient choice- her daughter has used them before. PCP: CORINE GOLD MD Pharmacy:[facility] in [place] PCP and pharmacy confirmed with patient. CN offered to assist with follow up appointment arrangements; patient declines - states will self-schedule follow up appointments. CORINE GOLD MD added to Follow Up Providers for Summary of Care communication. Per patient self-report: Drug use: no Smoking: no ETOH Use: no Current discharge plan is: Home with [facility] for wound care Services Requested: Services [facility] Will continue to follow as plan of care develops. CN discussed benefits and importance of medication compliance and follow ups. Please feel free to reach out for any discharge planning questions. - Nicky Buchanan RN 04/09/24 10:46 AM * Plan of Care - Fredi Lowe RN - 04/09/2024 7:52 AM EST Problem: Pain Goal: Patient goal is pain score less than 4, able to rest, and participant in treatment plan as appropriate Description: INTERVENTIONS: 1. Encourage patient or legal kiosk sales representative to report early pain and [...] per policy 9. Teach patient or legal kiosk sales representative interventions for comforting Outcome: Progressing [...] at the bedside 7. Instruct patient/ patient kiosk sales representative about use of safety devices 8. Include patient/ patient kiosk sales representative in decisions related to safety Outcome: Progressing Note: Evaluation of progress towards goal: safety maintained. Using proper hand hygiene up enteringand exiting room, and with glove changes. Problem: [...] hygiene technique. 7. Identify and instruct patient/patient kiosk sales representative in use of appropriate isolation precautionsfor identified infection/symptoms. 8. Provide and discuss with patient/patient kiosk sales representative on educational MDRO sheet. 9. Encourage and monitor nutritional status daily and consult orchard worker if indicated. 10. Implement neutropenic guidelines as needed. Outcome: Progressing Note: Evaluation of progress towards goal: on iv atb. Cont to trend labs.fevers Problem: Knowledge Deficit Goal: Patient/patient kiosk sales representative demonstrates understanding of disease process, treatment plan,medications, and discharge instructions Description: INTERVENTIONS 1. Complete [...] anxiety both physical and emotional (heart palpitations, chestpain, shortness of breath, headaches, nausea, feeling jumpy, [...] Collaborate with ancillary departments 14. Include patient/patient kiosk sales representative in decisions related to anxiety [...] care 6. Collaborate with pastoral/spiritual care, social and political studies professor, mental health counselor as needed. 7. Instruct patient on diversional activities such as physical activity, distraction, and deep breathing exercises to assist with coping 8. Involve patient's kiosk sales representative in care Outcome: Progressing Note: Evaluation of progress towards goal: able to voice concerns. Problem: Moderate - High Risk Fall Score Description: Nath Fall Score of =/> 25 or indicated by [facility] Assessment Goal: Patient should be free from fall Description: Interventions: 1. [place] to environment 2. Hourly rounds addressing the [...] non-skid footwear 11. Teach patient and patient kiosk sales representative to maintain environment for safety [...] (cane, walker) within reach 19. Request patient kiosk sales representative bring adaptive equipment/mobility aids from home or obtain and provide as needed 20. Consult pharmacy regarding effects of med's affecting mobility, cognition, and alternatives 21. Obtain physician order for PT if risk factors associated with mobility are present 22. Obtain physician order for OT as appropriate 23. Utilize diversional activities 24. Educate patient and patient kiosk sales representative how to maintain a safe environment during visitationtimes (notify nurse prior to leaving bedside) 25. Consider appropriateness of medical or non-medical equipment sales 26. Set up voiding schedule as appropriate (every 2 hours) Outcome: Progressing Note: Evaluation of progress towards goal: free from falls, cont to use nonskid footwear with ambulation. Pt instructed to call out when appropriate to aid with ambulation * Plan of Care - Lo Peres RN - 04/09/2024 4:51 AM EST Problem: Pain Goal: Patient goal is pain score less than 4, able to rest, and participant in treatment plan as appropriate Description: INTERVENTIONS: 1. Encourage patient or legal kiosk sales representative to report early pain and [...] per policy 9. Teach patient or legal kiosk sales representative interventions for comforting Note: Evaluation [...] at the bedside 7. Instruct patient/ patient kiosk sales representative about use of safety devices 8. Include patient/ patient kiosk sales representative in decisions related to safety [...] hygiene technique. 7. Identify and instruct patient/patient kiosk sales representative in use of appropriate isolation precautionsfor identified infection/symptoms. 8. Provide and discuss with patient/patient kiosk sales representative on educational MDRO sheet. 9. Encourage and monitor nutritional status daily and consult orchard worker if indicated. 10. Implement neutropenic guidelines as needed. Note: Evaluation of progress towards goal: Wound culture pending. Iv zosyn, vanco, and flagyl administered 04/08. Problem: Knowledge Deficit Goal: Patient/patient kiosk sales representative demonstrates understanding of disease process, treatment plan,medications, and discharge instructions Description: INTERVENTIONS 1. Complete [...] anxiety both physical and emotional (heart palpitations, chestpain, shortness of breath, headaches, nausea, feeling jumpy, [...] Collaborate with ancillary departments 14. Include patient/patient kiosk sales representative in decisions related to anxiety [...] care 6. Collaborate with pastoral/spiritual care, social and political studies professor, mental health counselor as needed. 7. Instruct patient on diversional activities such as physical activity, distraction, and deep breathing exercises to assist with coping 8. Involve patient's kiosk sales representative in care Note: Evaluation of progress towards goal: Emotional support provided by RN and pts SO. documented in this encounterPar[facility] History of Present illness Narrative* George Pisano MD - 04/10/2024 2:59 PM EST The patient has a mobility limitation that [...] in the resident's note, unless otherwise specified. * George iPsano MD - 04/10/2024 6:15 AM EST Gynecology Progress Note SUBJECTIVE: Patient is doing [...] DC later tonight Zain Pagan, MS3 [facility] Resident Attestation I have seen and evaluated the patient, and have also reviewed the documentation above. I have repeated and performed the chong portions of the physical exam and concur with the student's findings. I agree with the plan as noted above with any changes made as necessary. George Pisano MD Touring Production Manager Resident PGY-1 04/10/24 7:50 AM If questions [...] Notes/Findings: Transition to PO antibiotics, home soon * Nicholas Osuna, [facility] - 04/09/2024 9:57 AM EST Pharmacokinetic Consult - Vancomycin Dosing April Nicholson is a 28 y.o. female for whom pharmacy has been consulted for vancomycin dosing for peritonitis. Today is day 2 of vancomycin therapy. Relevant clinical data and objective history reviewed: Allergies: Bee venom protein (honey bee), Adhesive, Dihydroergotamine, Adhesive tape-silicones, Carbamazepine, Ciprofloxacin, Clindamycin, Dexamethasone, Dextromethorphan, Keflex [cephalexin], Levetiracetam, Metoclopramide, Propranolol hcl, Pyrilamine-dextromethorphan, Vortioxetine, Zithromax [azith romycin], Buspirone, Compazine [prochlorperazine], and Reglan [metoclopramide hcl] [...] Date/Time Wound culture superficial includes gram stain [[id number]] Collected: 04/08/242024 Specimen: Wound Swab Updated: 04/08/24 233 Gram Stain Result >25 WHITE BLOOD CELLS/LPF 0 SQUAMOUS EPITHELIAL CELLS/LPF FEW GRAM POSITIVE COCCI Culture PENDING Urine culture [[id number]] Collected: 04/08/24 1616 Specimen: Urine Updated: 04/08/24 1723 Blood culture [[id number]] Collected: 04/08/24 1411 Specimen: Blood Updated: 04/09/24 0229 Culture NO GROWTH <24 HRS SARS/FLU A+B/RSV by NAAT/Molecular (M4RT Collection Tube) [[id number]] Collected: 04/08/24 1403 Specimen: Nasopharynx Updated: 04/08/24 1506 FLU A PCR Negative FLU B PCR Negative RSV by PCR Negative SARS CoV 2 BY PCR Not Detected Blood culture [[id number]] Collected: 04/08/24 1343 Specimen: Blood Updated: 04/09/24 [...] yesterday while off steroids, CRP yesterday was 15.4,T<38C, HR>90, RR<20, SBP>100, on NC2L Plan for today - Based on the above information, I will initiate vancomycin 1,250 mg IV every 8 hours Pharmacy Dosing Service to follow serum concentrations and adjust as needed based on the patient's clinical status. Thank you for consulting. Nicholas Osuna, PharmD, BCPS [id number] * Jaziel Crump MD - 04/09/2024 7:25 AM EST Images from the original note were not included. General Surgery B Daily Progress Note Patient Name: April Nicholson Admit Date: 04/08/2024 Length of Stay: 1 Days Admitting Physician: Hai Admitting Day Resident Subjective: Patient underwent bedside I&D of abdominal wall with release of bloody purulent fluid last night. She reports significant pain and doesn't want her abdomen touched. She endorses nausea but deniesvomiting. She has chills but denies fever. She [...] and pelvis obtained following administration of contrast. Automatedexposure control was utilized. All CT scans at [...] or large bowel. The appendix is surgically absent.Colonic diverticulosis. PERITONEUM/RETROPERITONEUM: Focal inflammation along the inferior [...] using oral contrast might be considered if indicatedclinically. THIS REPORT CONTAINS A SIGNIFICANT RESULT AND/OR RECOMMENDATION, WHICH REQUIRES THE ATTENTION OF THE LICENSED CAREGIVER RESPONSIBLE FOR THIS PATIENT. THEREFORE, I SPECIFICALLY DESIGNATED THIS REPORT TO BE TELEPHONED BY THE RADIOLOGY DEPARTMENT. 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 Status post I&D of the abdominal wall abscess 04/08. Plan: Dressing change by surgical team today. Further dressing changes per nursing. Wound cultures sent, follow up results. Continue vancomycin for now. Check MRSA PCR. Further antibiotic recommendations pending cultures. Rest of care per primary. Sherri Miranda MS3 [facility] 04/09/24 7:25 AM Jaziel Crump MD PGY-3 Surgery Resident 04/09/24 7:25 AM Cosigned by Benjamin Francis MD at 04/09/2024 10:19 PM EST Associated attestation - Benjamin Francis MD - 04/09/2024 10:19 PM EST documented in this encounterParma [facility]02-19-2025 Progress note* Discharge Planning Note - Trudi Patel - 04/10/2024 11:15 AM EST DISCHARGE PLANNING NOTE Referral sent to multiple facilities or agencies due to patient insurance type/difficult placement/patient is without preference. [facility] [employer] [id number] Progress note* Discharge Planning Note - Nicky Buchanan RN - 04/10/2024 10:35 AM EST DISCHARGE PLANNING NOTE Per RN during discharge transition rounds, barriers to discharge are: No barriers. [place] [facility]. Patient states that she is not comfortable doing her own wound care. Has family that assist 4-5 times per week with wound care. Discharge Plan: Plan is home with HCC if able to find company to agree to care. Will arrange outpatient wound care if unable to find accepting HCC. [employer] will continue to follow for any discharge needs. - Nicky Buchanan RN 04/10/24 10:38 AM [facility] [id number] Plan of care note* Plan of Care - Effie Keene RN - 04/10/2024 8:07 AM EST Problem: Pain Goal: Patient goal is pain score less than 4, able to rest, and participant in treatment plan as appropriate Description: INTERVENTIONS: 1. Encourage patient or legal kiosk sales representative to report early pain and [...] per policy 9. Teach patient or legal kiosk sales representative interventions for comforting Outcome: Progressing [...] at the bedside 7. Instruct patient/ patient kiosk sales representative about use of safety devices 8. Include patient/ patient kiosk sales representative in decisions related to safety [...] hygiene technique. 7. Identify and instruct patient/patient kiosk sales representative in use of appropriate isolation precautionsfor identified infection/symptoms. 8. Provide and discuss with patient/patient kiosk sales representative on educational MDRO sheet. 9. Encourage and monitor nutritional status daily and consult orchard worker if indicated. 10. Implement neutropenic guidelines as needed. Outcome: Progressing Note: Evaluation of progress towards goal: Patient afebrile, vital signs stable at this time. Continuing to monitor. Problem: Knowledge Deficit Goal: Patient/patient kiosk sales representative demonstrates understanding of disease process, treatment plan,medications, and discharge instructions Description: INTERVENTIONS 1. Complete [...] be free from fall Description: Interventions: 1. [place] to environment 2. Hourly rounds addressing the [...] non-skid footwear 11. Teach patient and patient kiosk sales representative to maintain environment for safety [...] (cane, walker) within reach 19. Request patient kiosk sales representative bring adaptive equipment/mobility aids from home or obtain and provide as needed 20. Consult pharmacy regarding effects of med's affecting mobility, cognition, and alternatives 21. Obtain physician order for PT if risk factors associated with mobility are present 22. Obtain physician order for OT as appropriate 23. Utilize diversional activities 24. Educate patient and patient kiosk sales representative how to maintain a safe environment during visitationtimes (notify nurse prior to leaving bedside) 25. Consider appropriateness of medical or non-medical equipment sales 26. Set up voiding schedule as appropriate (every 2 hours) Outcome: Progressing Note: Evaluation of progress towards goal: Patient remains free from falls at this time. Interventions in place to help prevent falls. Continuing to monitor. Problem: Low Risk Fall Score Description: Nath Fall Score of 0 - 24 or indicated by [facility] Assessment Goal: Patient should be free from fall Description: Interventions: 1. [place] to environment 2. Hourly rounds addressing the [...] non-skid footwear 11. Teach patient and patient kiosk sales representative to maintain environment for safety and engage in all aspects of fall prevention program Outcome: Progressing Note: Evaluation of progress towards goal: Patient remains free from falls at this time. Interventions in place to help prevent falls. Continuing to monitor. [facility] Hospital course Narrative* George Pisano MD - 04/10/2024 7:53 AM EST Inpatient Discharge Summary BRIEF OVERVIEW Admitting Provider: Primary Care Physician at Discharge: Admission Date: 04/08/2024 Discharge Date: 04/10/24 Procedures: Bedside I&D for abdominal abscess HPI: April Nicholson is a 28 y.o. female who presented to [facility] ED on 04/08/2024 with hx of [...] patient had been evaluated at [facility] and was given 1 dose of bactrim [...] cocci. The wound was packed with lodoform s trips and dressings placed, which were changed at appropriate intervals. The patient was transitioned to PO Augmentin. Patient subjectively improved as her pain was better controlled with PRN pain medication and nausea controlled with PRN Zofran. Patient was spontaneously ambulating on assessments.She passed flatus and had a bowel movement [...] using oral contrast might be considered if indicatedclinically. Medications given: IV Ceftriaxone given at 16:03 [...] night) on 04/09, and given at 8:28 on04/10 Diphenhydramine 25 mg injection given 15:58 on 04/08 Diphenhydramine 12.5 mg injection given 11:59 on 04/09 Estradiol 0.0375 mg/24 hr patch given 15:58 on 04/08 IV Dilaudid 1 mg mg given at 16:40 and 20:20 on 04/08, 4x on 04/09 IM Toradol 15 mg injection given at 11:59 on 04/09 Lamotrigine 200 mg given BID during inpatient stay [place] carbonate 600 mg PO given qd during inpatient stay Lorazepam 1 mg injection given at 20:11 04/08 IV Morphine 4 mg injection given 14:04/08 Zofran 4 mg IV given 14:16 04/08 0.9% NaCl 2,000 mL fluid bolus given 14:15 04/08 Trazadone 300 mg given 01:17and 21:37 04/09 [...] pathogen panel- Negative Urine culture- normal urogenital ariane Prescriptions given at discharge: Augmentin 875-125 mg [...] Zaki Gupta 04/10/24 3rd Year Medical Student, [facility] Resident Attestation I have seen and evaluated the patient, and have also reviewed the documentation above. I have repeated and performed the chong portions of the physical exam and concur with the student's findings. I agree with the plan as noted above with any changes made as necessary. George Pisano MD Touring Production Manager Resident PGY-1 04/10/24 9:39 AM Cosigned by Milad Hernandez MD at 04/10/2024 10:59 AM EST Associated attestation - Milad Hernandez MD - 04/10/2024 10:59 AM EST I was present with resident during the history and physical exam. I discussed the case with the resident and agree with the findings and plan as documented in the resident's note, unless otherwise specified. documented in this encounterPar[facility]02[facility]-2025 Plan of care note * Plan of Care - Corby Bojorquez RN - 04/09/2024 7:31 PM EST Problem: Pain Goal: Patient goal is pain score less than 4, able to rest, and participant in treatment plan as appropriate Description: INTERVENTIONS: 1. Encourage patient or legal kiosk sales representative to report early pain and [...] per policy 9. Teach patient or legal kiosk sales representative interventions for comforting Outcome: Progressing Note: Evaluation of progress towards goal: Pharmacological and non- pharmacological interventions utilized to optimize pain mgmt Problem: [...] at the bedside 7. Instruct patient/ patient kiosk sales representative about use of safety devices 8. Include patient/ patient kiosk sales representative in decisions related to safety [...] hygiene technique. 7. Identify and instruct patient/patient kiosk sales representative in use of appropriate isolation precautionsfor identified infection/symptoms. 8. Provide and discuss with patient/patient kiosk sales representative on educational MDRO sheet. 9. Encourage and monitor nutritional status daily and consult orchard worker if indicated. 10. Implement neutropenic guidelines as needed. Outcome: Progressing Note: Evaluation of progress towards goal: Standard precautions and hand hygiene used to prevent infection Problem: Knowledge Deficit Goal: Patient/patient kiosk sales representative demonstrates understanding of disease process, treatment plan,medications, and discharge instructions Description: INTERVENTIONS 1. Complete [...] anxiety both physical and emotional (heart palpitations, chestpain, shortness of breath, headaches, nausea, feeling jumpy, [...] Collaborate with ancillary departments 14. Include patient/patient kiosk sales representative in decisions related to anxiety [...] be free from fall Description: Interventions: 1. [place] to environment 2. Hourly rounds addressing the [...] non-skid footwear 11. Teach patient and patient kiosk sales representative to maintain environment for safety [...] (cane, walker) within reach 19. Request patient kiosk sales representative bring adaptive equipment/mobility aids from home or obtain and provide as needed 20. Consult pharmacy regarding effects of med's affecting mobility, cognition, and alternatives 21. Obtain physician order for PT if risk factors associated with mobility are present 22. Obtain physician order for OT as appropriate 23. Utilize diversional activities 24. Educate patient and patient kiosk sales representative how to maintain a safe environment during visitationtimes (notify nurse prior to leaving bedside) 25. Consider appropriateness of medical or non-medical equipment sales 26. Set up voiding schedule as appropriate [...] care 6. Collaborate with pastoral/spiritual care, social and political studies professor, mental health counselor as needed. 7. Instruct patient on diversional activities such as physical activity, distraction, and deep breathing exercises to assist with coping 8. Involve patient's kiosk sales representative in care Outcome: Completed Note: Evaluation of progress towards goal: completed [employer]02-18-2025 Progress note* Discharge Planning Note - Nicky Buchanan RN - 04/09/2024 2:58 PM EST DISCHARGE PLANNING NOTE Update: [facility]. Referrals for [facility] per patient choice sent. Waiting on reply. - Nicky Buchanan RN 04/09/24 2:59 PM [employer]02-18-2025 Progress note* Discharge Planning Note - Nicky Buchanan RN - 04/09/2024 10:45 AM EST DISCHARGE PLANNING NOTE Ethylene Compressor Operator met with patient, introduced self, and explained role. Patient educated on safe discharge plan. Pt admitted 04/08/2024 with Abdominal wall cellulitis [L03.311] Sepsis ([facility]) [A41.9] Postoperative surgical complication involving genitourinary [...] 03/25/2024 Prolonged emergence from general anesthesia Seizure ([facility]) Last one 03-11-2024 Prior to admission patient was living with family and self care. Medical equipment patient used prior to admission includes: None. Patient denies need for transportation/ food/ prescription medication assistance resources. Patient lives with minor children and boyfriend. Has support from mother. Referral sent to [facility] per patient choice- her daughter has used them before. PCP: CORINE GOLD MD Pharmacy:[facility] in [place] PCP and pharmacy confirmed with patient. CN [...] - Nicky Buchanan RN 04/09/24 10:46 AM [facility] [employer] [id number] Consult note* George Pisano MD - 04/09/2024 7:52 AM EST Gynecology Oncology Consultation Date of Admission: 04/08/2024 1:04 PM Chief Complaint : Chief Complaint Patient presents with Flu Symptoms Abdominal Pain History of Present Illness : April Nicholson is a 28 y.o. female POD#11 from RA BSO and lysis of adhesion c/b by muscularis serosal injury to the rectum who presents to [facility] ED due to abdominal pain that began 3-4 days after her surgery. She reports that in addition to her abdominal pain, she has been having nausea and fever/chills. Her temperatures have been ranging between 103-105 F. Patient has also noticed increasein erythema surrounding incision sites around her umbilicus and left surgical sites (image in patient chart). She reports that she is having a constant 10 out of 10 left upper and lower quadrant painand that she had purulent, green discharge from the umbilical incision site yesterday. Patient notes that she has been using tylenol, motrin, and roxicodone since discharge, but her pain has not beencontrolled well. She states that she saw Dr. Blas on 04/01 and finished her 7 day course of clindamycin. She went [facility] ED yesterday and was given 1 dose [...] 03/25/2024 Prolonged emergence from general anesthesia Seizure ([facility]) Last one 03-11-2024 Past Surgical History: Past Surgical History: Procedure Laterality Date APPENDECTOMY SECTION CHOLECYSTECTOMY [facility] LYSIS OF ADHESIONS N/A 03/28/2024 Performed by Mundo [facility] MD at [facility] LYSIS OF ADHESIONS N/A 03/28/2024 Performed by Jesse Sultana MD at [facility]5 [place] OOPHORECTOMY/FROZEN SECTION Bilateral 03/28/2024 Performed by Mundo Martinez MD at [facility] DILATION AND CURETTAGE OF UTERUS PARTIAL HYSTERECTOMY [...] BID, Katina Block DO, 5 mg at 04/08/242217 HYDROmorphone (DILAUDID) injection 1 mg, 1 mg, intravenous, Q4H PRN, Katina Block DO, 1 mg at 04/09/24 0013 ibuprofen (MOTRIN) tablet 800 mg, 800 mg, oral, Q6H PRN, Katina Block DO iohexoL (OMNIPAQUE) 300 mg iodine/mL 30 mL, 30 mL, oral, Once in imaging, Rohan Velazquez MD lamoTRIgine (LaMICtal) tablet 200 mg, 200 mg, oral, BID, Katina Block DO, 200 mg at 04/08/242217 lidocaine PF (XYLOCAINE) 10 mg/mL (1 %) injection 100 mg, 10 mL, infiltration, Once, George Pisano MD lidocaine PF (XYLOCAINE) 10 mg/mL (1 %) injection 100 mg, 10 mL, infiltration, Once, George Pisano MD lithium carbonate tablet 600 mg, 600 mg, oral, Nightly, Katina Block DO, 600 mg at 04/08/242217 ondansetron ODT (ZOFRAN ODT) disintegrating tablet 4 [...] Physical Activity: Insufficiently Active (01/23/2024) Received from [facility] Exercise Vital Sign Days of Exercise per Week: 7 days Minutes of Exercise per Session: 10 min Stress: Stress Concern Present (01/23/2024) Received from [facility] [employer] [place] [employer] Occup[employer] - Occupational Stress Questionnaire Feeling of Stress : Rather much Social Connections: Socially Integrated (01/23/2024) Received from [facility] Social Connection and Isolation Panel [NHANES] Frequency of Communication with Friends and Family: More than three times a week Frequency of Social Gatherings with Friends and Family: Twice a week Attends [employer]: More than 4 times per year [...] RA BSO and lysis of adhesion c/b bymuscularis serosal injury to the rectum presenting for abdominal pain, possible peritonitis. Possible Peritonitis Afebrile, tachycardic, normotensive Lactate 0.8 WBC 19.6 Fu am labs-pending sepsis workup - blood and urine culture pending Lactate: 0.8 CRP 15.4 UA: Trace protein / Trace hgb Obtain CTAP oral and IV contrast CTAP /: Soft tissue attenuation of the anterior abdominal wall without distinct fluid collection. This may represent developing cellulitis or seroma status postop. Cannot exclude abscess formationwithin this process, and cannot exclude necrotizing fasciitis [...] If questions or concerns, please contact via [facility] pager at [phone]. Resident Attestation I have seen and evaluated the patient, and have also reviewed the documentation above. I have repeated and performed the chong portions of the physical exam and concur with the student's findings. I agree with the plan as noted above with any changes made as necessary. George Pisano MD Touring Production Manager Resident PGY-1 04/09/24 7:52 AM Cosigned by [...] Will initiate transdermal estrogen for vasomotor symptoms. [facility]02-18-2025 Plan of care note* Plan of Care - Fredi Lowe RN - 04/09/2024 7:52 AM EST Problem: Pain Goal: Patient goal is pain score less than 4, able to rest, and participant in treatment plan as appropriate Description: INTERVENTIONS: 1. Encourage patient or legal kiosk sales representative to report early pain and [...] per policy 9. Teach patient or legal kiosk sales representative interventions for comforting Outcome: Progressing [...] at the bedside 7. Instruct patient/ patient kiosk sales representative about use of safety devices 8. Include patient/ patient kiosk sales representative in decisions related to safety Outcome: Progressing Note: Evaluation of progress towards goal: safety maintained. Using proper hand hygiene up enteringand exiting room, and with glove changes. Problem: [...] hygiene technique. 7. Identify and instruct patient/patient kiosk sales representative in use of appropriate isolation precautionsfor identified infection/symptoms. 8. Provide and discuss with patient/patient kiosk sales representative on educational MDRO sheet. 9. Encourage and monitor nutritional status daily and consult orchard worker if indicated. 10. Implement neutropenic guidelines as needed. Outcome: Progressing Note: Evaluation of progress towards goal: on iv atb. Cont to trend labs.fevers Problem: Knowledge Deficit Goal: Patient/patient kiosk sales representative demonstrates understanding of disease process, treatment plan,medications, and discharge instructions Description: INTERVENTIONS 1. Complete [...] anxiety both physical and emotional (heart palpitations, chestpain, shortness of breath, headaches, nausea, feeling jumpy, [...] Collaborate with ancillary departments 14. Include patient/patient kiosk sales representative in decisions related to anxiety [...] care 6. Collaborate with pastoral/spiritual care, social and political studies professor, mental health counselor as needed. 7. Instruct patient on diversional activities such as physical activity, distraction, and deep breathing exercises to assist with coping 8. Involve patient's kiosk sales representative in care Outcome: Progressing Note: Evaluation of progress towards goal: able to voice concerns. Problem: Moderate - High Risk Fall Score Description: Nath Fall Score of =/> 25 or indicated by [facility] Assessment Goal: Patient should be free from fall Description: Interventions: 1. [place] to environment 2. Hourly rounds addressing the [...] non-skid footwear 11. Teach patient and patient kiosk sales representative to maintain environment for safety [...] (cane, walker) within reach 19. Request patient kiosk sales representative bring adaptive equipment/mobility aids from home or obtain and provide as needed 20. Consult pharmacy regarding effects of med's affecting mobility, cognition, and alternatives 21. Obtain physician order for PT if risk factors associated with mobility are present 22. Obtain physician order for OT as appropriate 23. Utilize diversional activities 24. Educate patient and patient kiosk sales representative how to maintain a safe environment during visitationtimes (notify nurse prior to leaving bedside) 25. Consider appropriateness of medical or non-medical equipment sales 26. Set up voiding schedule as appropriate (every 2 hours) Outcome: Progressing Note: Evaluation of progress towards goal: free from falls, cont to use nonskid footwear with ambulation. Pt instructed to call out when appropriate to aid with ambulation [employer]02-18-2025 Consult note* George Pisano MD - 04/09/2024 7:52 AM EST Gynecology Oncology Consultation Date of Admission: 04/08/2024 1:04 PM Chief Complaint : Chief Complaint Patient presents with Flu Symptoms Abdominal Pain History of Present Illness : April Nicholson is a 28 y.o. female POD#11 from RA BSO and lysis of adhesion c/b by muscularis serosal injury to the rectum who presents to [facility] ED due to abdominal pain that began 3-4 days after her surgery. She reports that in addition to her abdominal pain, she has been having nausea and fever/chills. Her temperatures have been ranging between 103-105 F. Patient has also noticed increasein erythema surrounding incision sites around her umbilicus and left surgical sites (image in patient chart). She reports that she is having a constant 10 out of 10 left upper and lower quadrant painand that she had purulent, green discharge from the umbilical incision site yesterday. Patient notes that she has been using tylenol, motrin, and roxicodone since discharge, but her pain has not beencontrolled well. She states that she saw Dr. Blas on 04/01 and finished her 7 day course of clindamycin. She went [facility] ED yesterday and was given 1 dose [...] 03/25/2024 Prolonged emergence from general anesthesia Seizure ([facility]) Last one 03-11-2024 Past Surgical History: Past Surgical History: Procedure Laterality Date APPENDECTOMY SECTION CHOLECYSTECTOMY [facility] LYSIS OF ADHESIONS N/A 03/28/2024 Performed by Mundo Martinez MD at [facility] LYSIS OF ADHESIONS N/A 03/28/2024 Performed by Jesse Sultana MD at [facility]5 [place] OOPHORECTOMY/FROZEN SECTION Bilateral 03/28/2024 Performed by Mundo Martinez MD at [facility] DILATION AND CURETTAGE OF UTERUS PARTIAL HYSTERECTOMY [...] Physical Activity: Insufficiently Active (01/23/2024) Received from [facility] Exercise Vital Sign Days of Exercise per Week: 7 days Minutes of Exercise per Session: 10 min Stress: Stress Concern Present (01/23/2024) Received from [facility] [place] [facility] [employer] - Occupational Stress Questionnaire Feeling of Stress : Rather much Social Connections: Socially Integrated (01/23/2024) Received from [facility] Social Connection and Isolation Panel [NHANES] Frequency of Communication with Friends and Family: More than three times a week Frequency of Social Gatherings with Friends and Family: Twice a week Attends [employer]: More than 4 times per year [...] RA BSO and lysis of adhesion c/b bymuscularis serosal injury to the rectum presenting for [...] or seroma status postop. Cannot exclude abscess formationwithin this process, and cannot exclude necrotizing fasciitis [...] and sanguinous fluid Iodoform packing strips Stephen Deckerhamilton MS4 If questions or concerns, please contact via [facility] pager at [phone]. Resident Attestation I have seen and evaluated the patient, and have also reviewed the documentation above. I have repeated and performed the chong portions of the physical exam and concur with the student's findings. I agree with the plan as noted above with any changes made as necessary. George Pisano MD Touring Production Manager Resident PGY-1 04/09/24 7:52 AM Cosigned by [...] Will initiate transdermal estrogen for vasomotor symptoms. * Kinsey Toussaint MD - 04/08/2024 5:44 PM EST Images from the original note were not included. Surgery B CONSULTATION NOTE Chief Complaint: abdominal pain History of Present Illness: April Nicholson is a 28 y.o. female who is s/p RA BSO and lysis of adhesion c/b by muscularis serosal injury to the rectum on 03/28/24 who presented to the ED due to worsening surgical site painand fevers. She began having worsening abdominal pain [...] 03/25/2024 Prolonged emergence from general anesthesia Seizure ([facility]) Last one 03-11-2024 Past Surgical History: Procedure Laterality Date APPENDECTOMY SECTION [facility] LYSIS OF ADHESIONS N/A 03/28/2024 Performed by Mundo Martinez MD at [facility]5 LYSIS OF ADHESIONS N/A 03/28/2024 Performed by Jesse Sultana MD at [facility]5 [place] OOPHORECTOMY/FROZEN SECTION Bilateral 03/28/2024 Performed by Mundo Martinez MD at [facility] DILATION AND CURETTAGE OF UTERUS PARTIAL HYSTERECTOMY [...] mg total) by mouth 4 (four) times aday as needed., Disp: , Rfl: diazePAM (VALIUM) 10 mg tablet, Take 0.5 tablets (5 mg total) by mouth in the morning and at bedtime., Disp: , Rfl: EPINEPHrine (EPIPEN) 0.3 mg/0.3 mL auto-injector, 0.3 mL (0.3 mg total) by other route as needed (exposure to allergen)., Disp: 2 each, Rfl: 1 ixqpyektvfb-fawdedymu-whxdxmzu (TRELEGY ELLIPTA) 200-62.5-25 mcg blister with device, [...] mg total) by mouth in the morning. (Patientnot taking: Reported on 03/25/2024), Disp: 30 capsule, Rfl: 1 omeprazole (PriLOSEC) 40 mg capsule, Take 1 capsule (40 mg total) by mouth in the morning. (Patientnot taking: Reported on 03/25/2024), Disp: 30 capsule, [...] pain. Max Daily Amount: 30 mg, Disp: 42tablet, Rfl: 0 phentermine (ADIPEX-P) 37.5 mg tablet, [...] Resource Strain: Low Risk (01/23/2024) Received from [facility] Overall Financial Resource Strain (CARDIA) Difficulty of Paying Living Expenses: Not very hard Food Insecurity: No Food Insecurity (02/09/2024) Hunger Screening Food Insecurity - Worry: Never True Food Insecurity - Inability: Never True Transportation Needs: Unknown (01/23/2024) Received from [facility] PRAPARE - Transportation Lack of Transportation (Medical): Patient declined Lack of Transportation (Non-Medical): No Physical Activity: Insufficiently Active (01/23/2024) Received from [facility] Exercise Vital Sign Days of Exercise per Week: 7 days Minutes of Exercise per Session: 10 min Stress: Stress Concern Present (01/23/2024) Received from [facility] [employer] [place] [employer] - Occupational Stress Questionnaire Feeling of Stress : Rather much Social Connections: Socially Integrated (01/23/2024) Received from [facility] Social Connection and Isolation Panel [NHANES] Frequency of Communication with Friends and Family: More than three times a week Frequency of Social Gatherings with Friends and Family: Twice a week Attends [employer] Services: More than 4 times per year Active Member of Clubs or Organizations: Yes Attends Club or Organization Meetings: More than 4 times per year Marital Status: Living with partner Interpersonal Safety: Not on file Housing Instability: Low Risk (01/23/2024) Received from [facility] Housing Stability Vital Sign Unable to Pay [...] and pelvis obtained following administration of contrast. Automatedexposure control was utilized. All CT scans at [...] or large bowel. The appendix is surgically absent.Colonic diverticulosis. PERITONEUM/RETROPERITONEUM: Focal inflammation along the inferior [...] using oral contrast might be considered if indicatedclinically. THIS REPORT CONTAINS A SIGNIFICANT RESULT AND/OR [...] presents with abdominal wall cellulitis and possible developingsurgical site abscess. Plan: Plan for bedside I&D today IV abx Pain and nausea control PRN Rest of care per primary Kinsey Toussaint MD General Surgery Resident, PGY-1 General Surgery B 6a - 6p Pager: [phone] 6p - 6a Pager: [phone] Cosigned by Benjamin Francis MD at 04/09/2024 9:48 AM EST Associated attestation - Benjamin Francis MD - 04/09/2024 9:48 AM EST Attending attestation: I reviewed the resident's note and discussed the case with the resident. Additional findings/notes: Local wound care. Will sign-off. Benjamin Francis MD, [facility] General Surgery and Minimally Invasive Surgery [address] [place] [address], [address] [place] [address] Office: [facility] in [facility] Plan of care note * Plan of Care - Lo Peres RN - 04/09/2024 4:51 AM EST Problem: Pain Goal: Patient goal is pain score less than 4, able to rest, and participant in treatment plan as appropriate Description: INTERVENTIONS: 1. Encourage patient or legal kiosk sales representative to report early pain and [...] per policy 9. Teach patient or legal kiosk sales representative interventions for comforting Note: Evaluation [...] at the bedside 7. Instruct patient/ patient kiosk sales representative about use of safety devices 8. Include patient/ patient kiosk sales representative in decisions related to safety [...] hygiene technique. 7. Identify and instruct patient/patient kiosk sales representative in use of appropriate isolation precautionsfor identified infection/symptoms. 8. Provide and discuss with patient/patient kiosk sales representative on educational MDRO sheet. 9. Encourage and monitor nutritional status daily and consult orchard worker if indicated. 10. Implement neutropenic guidelines as needed. Note: Evaluation of progress towards goal: Wound culture pending. Iv zosyn, vanco, and flagyl administered 04/08. Problem: Knowledge Deficit Goal: Patient/patient kiosk sales representative demonstrates understanding of disease process, treatment plan,medications, and discharge instructions Description: INTERVENTIONS 1. Complete [...] anxiety both physical and emotional (heart palpitations, chestpain, shortness of breath, headaches, nausea, feeling jumpy, [...] Collaborate with ancillary departments 14. Include patient/patient kiosk sales representative in decisions related to anxiety [...] care 6. Collaborate with pastoral/spiritual care, social and political studies professor, mental health counselor as needed. 7. Instruct patient on diversional activities such as physical activity, distraction, and deep breathing exercises to assist with coping 8. Involve patient's kiosk sales representative in care Note: Evaluation of progress towards goal: Emotional support provided by RN and pts SO. [facility]02-17-2025 Procedure note* Jaziel Crump MD - 04/08/2024 8:32 PM EST PROCEDURE NOTE INCISION AND DRAINAGE PATIENT NAME: [...] obtained. The patient was then prepared for theprocedure. PROCEDURE: A timeout was initiated and the [...] I reviewed the resident's note. Additional Notes/Findings: [facility]02-17-2025 Procedure note* Jaziel Crump MD - 04/08/2024 8:32 PM EST PROCEDURE NOTE INCISION AND DRAINAGE PATIENT NAME: [...] obtained. The patient was then prepared for theprocedure. PROCEDURE: A timeout was initiated and the [...] resident's note. Additional Notes/Findings: documented in this encounterParma [facility]02-17-2025 Consult note* Kinsey Toussaint MD - 04/08/2024 5:44 PM EST Images from the original note were not included. Surgery B CONSULTATION NOTE Chief Complaint: abdominal pain History of Present Illness: April Nicholson is a 28 y.o. female who is s/p RA BSO and lysis of adhesion c/b by muscularis serosal injury to the rectum on 03/28/24 who presented to the ED due to worsening surgical site painand fevers. She began having worsening abdominal pain [...] 03/25/2024 Prolonged emergence from general anesthesia Seizure ([facility]) Last one 03-11-2024 Past Surgical History: Procedure Laterality Date APPENDECTOMY SECTION [facility]Y [facility] LYSIS OF ADHESIONS N/A 03/28/2024 Performed by Mundo Martinez MD at [place] [id number] LYSIS OF ADHESIONS N/A 03/28/2024 Performed by Jesse Sultana MD at [facility] [place] OOPHORECTOMY/FROZEN SECTION Bilateral 03/28/2024 Performed by Mundo Martinez MD at [facility] DILATION AND CURETTAGE OF UTERUS PARTIAL HYSTERECTOMY [...] mg total) by mouth 4 (four) times aday as needed., Disp: , Rfl: diazePAM (VALIUM) 10 mg tablet, Take 0.5 tablets (5 mg total) by mouth in the morning and at bedtime., Disp: , Rfl: EPINEPHrine (EPIPEN) 0.3 mg/0.3 mL auto-injector, 0.3 mL (0.3 mg total) by other route as needed (exposure to allergen)., Disp: 2 each, Rfl: 1 mcvmyrvjprx-svmpezytg-lcvbaepb (TRELEGY ELLIPTA) 200-62.5-25 mcg blister with device, [...] mg total) by mouth in the morning. (Patientnot taking: Reported on 03/25/2024), Disp: 30 capsule, Rfl: 1 omeprazole (PriLOSEC) 40 mg capsule, Take 1 capsule (40 mg total) by mouth in the morning. (Patientnot taking: Reported on 03/25/2024), Disp: 30 capsule, [...] pain. Max Daily Amount: 30 mg, Disp: 42tablet, Rfl: 0 phentermine (ADIPEX-P) 37.5 mg tablet, [...] Resource Strain: Low Risk (01/23/2024) Received from [facility] Overall Financial Resource Strain (CARDIA) Difficulty of Paying Living Expenses: Not very hard Food Insecurity: No Food Insecurity (02/09/2024) Hunger Screening Food Insecurity - Worry: Never True Food Insecurity - Inability: Never True Transportation Needs: Unknown (01/23/2024) Received from [facility] PRAPARE - Transportation Lack of Transportation (Medical): Patient declined Lack of Transportation (Non-Medical): No Physical Activity: Insufficiently Active (01/23/2024) Received from [facility] Exercise Vital Sign Days of Exercise per Week: 7 days Minutes of Exercise per Session: 10 min Stress: Stress Concern Present (01/23/2024) Received from [facility] [employer] [place] of Occupational Health - Occupational Stress Questionnaire Feeling of Stress : Rather much Social Connections: Socially Integrated (01/23/2024) Received from [facility] Social Connection and Isolation Panel [NHANES] Frequency of Communication with Friends and Family: More than three times a week Frequency of Social Gatherings with Friends and Family: Twice a week Attends [employer] Services: More than 4 times per year Active Member of Clubs or Organizations: Yes Attends Club or Organization Meetings: More than 4 times per year Marital Status: Living with partner Interpersonal Safety: Not on file Housing Instability: Low Risk (01/23/2024) Received from [facility] Housing Stability Vital Sign Unable to Pay [...] and pelvis obtained following administration of contrast. Automatedexposure control was utilized. All CT scans at [...] or large bowel. The appendix is surgically absent.Colonic diverticulosis. PERITONEUM/RETROPERITONEUM: Focal inflammation along the inferior [...] using oral contrast might be considered if indicatedclinically. THIS REPORT CONTAINS A SIGNIFICANT RESULT AND/OR [...] presents with abdominal wall cellulitis and possible developingsurgical site abscess. Plan: Plan for bedside I&D today IV abx Pain and nausea control PRN Rest of care per primary Kinsey Toussaint MD General Surgery Resident, PGY-1 General Surgery B 6a - 6p Pager: [phone] 6p - 6a Pager: [phone] Cosigned by Benjamin Francis MD at 04/09/2024 9:48 AM EST Associated attestation - Benjamin Francis MD - 04/09/2024 9:48 AM EST Attending attestation: I reviewed the resident's note and discussed the case with the resident. Additional findings/notes: Local wound care. Will sign-off. Benjamin Francis MD, [facility] General Surgery and Minimally Invasive Surgery [address] [place] [address], [address] [place] [address] Office: [facility] Work Phone: [phone]) 597-743102-17-2025 Physician Emergency department Note* Yordy Melton, DO - 04/08/2024 1:32 PM EST Images from the original note were not included. [facility] - EMERGENCY DEPARTMENT Pt Name: April [...] she was recently evaluated at [facility] yesterday and was given Keflex and recommended [...] umbilical as well as the left lower quadrant.She also states that she had purulent, serosanguineous [...] 03/25/2024 Prolonged emergence from general anesthesia Seizure ([facility]-HCC) Last one 03-11-2024 Past Surgical History: Past Surgical History: Procedure Laterality Date APPENDECTOMY SECTION CHOLECYSTECTOMY [facility]5 LYSIS OF ADHESIONS N/A 03/28/2024 Performed by Mundo Martinez MD at [facility]5 LYSIS OF ADHESIONS N/A 03/28/2024 Performed by Jesse Sultana MD at [facility]5 SALPINGO OOPHORECTOMY/FROZEN SECTION Bilateral 03/28/2024 Performed by Mundo Martinez MD at [facility] DILATION AND CURETTAGE OF UTERUS PARTIAL HYSTERECTOMY [...] Physical Activity: Insufficiently Active (01/23/2024) Received from [facility] Exercise Vital Sign Days of Exercise per Week: 7 days Minutes of Exercise per Session: 10 min Stress: Stress Concern Present (01/23/2024) Received from [facility] [place] of [employer] - Occupational Stress Questionnaire Feeling of Stress : Rather much Social Connections: Socially Integrated (01/23/2024) Received from [facility] Social Connection and Isolation Panel [NHANES] Frequency of Communication with Friends and Family: More than three times a week Frequency of Social Gatherings with Friends and Family: Twice a week Attends [employer] Services: More than 4 times per year [...] nursing note reviewed. Exam conducted with a sky cap present. Constitutional: General: She is in acute [...] tablet 5 mg (5 mg oral Given 04/08/248) lamoTRIgine (LaMICtal) tablet 200 mg (200 mg [...] % 50 mL IVPB-MBP (0 g intravenous StopBag 04/08/24 2259) HYDROmorphone (DILAUDID) injection 1 mg (1 mg intravenous Given 04/08/24 1640) lidocaine-EPINEPHrine (XYLOCAINE W/EPI) 1 %-1:695352 injection 30 mL (20 mL intradermal Given [...] and physical exam, pt requires admission to Event Services Manager/Onc for IV antibiotics, pain control, general surgery [...] [JR] 1322 Pain Score: 10 [JR] 1406 Event Services Manager/Onc evaluating patient at bedside [JR] 1413 X-ray [...] 12 lead Sinus tachycardia, heart rate 103, [place] interval 134, QRS 75, QTC 427. No [...] using oral contrast might be considered if indicatedclinically. [JR] 1612 1 Hour Trop I, High [...] gynecology oncology team, awaiting disposition. IV antibiotics orderedfor coverage of necrotizing fasciitis [JR] 1631 Protime(!): [...] ED for chief complaint of ABD pain. Ptnotes that she has a HX of Salpingectomy, Oophorectomy, Gastrointestinal infections, Hysterectomy. Pt states that her most recent surgery was a oophorectomy on 03/28/2024 with Gyne Oncology as well as lysis of adhesions with Dr. Sultana via robotic surgery. Pt [facility] and recommended [...] 4:29 PM Comment Diagnosis: Abdominal wall cellulitis [[id number]] Attending Provider: MILAD HERNANDEZ [[id number]] Estimated length of stay?: >2 midnights/In-patient only [...] Attestation: I, Dr. Melton personally performed a wypi-fn-suuy diagnostic evaluation on this patient. I have [...] Resident 04/08/242000 Yordy Melton DO 04/09/24 0734 [facility] Work Phone: [phone] Emergency department Note* Yordy Melton DO - 04/08/2024 1:32 PM EST Images from the original note were not included. [facility] - EMERGENCY DEPARTMENT Pt Name: April [...] she was recently evaluated at [facility] yesterday and was given Keflex and recommended [...] umbilical as well as the left lower quadrant.She also states that she had purulent, serosanguineous [...] 03/25/2024 Prolonged emergence from general anesthesia Seizure ([facility]) Last one 03-11-2024 Past Surgical History: Past Surgical History: Procedure Laterality Date APPENDECTOMY SECTION CHOLECYSTECTOMY [facility]5 LYSIS OF ADHESIONS N/A 03/28/2024 Performed by Mundo Martinez MD at [facility] DV5 LYSIS OF ADHESIONS N/A 03/28/2024 Performed by Jesse Sultana MD at [facility]5 SALPINGO OOPHORECTOMY/FROZEN SECTION Bilateral 03/28/2024 Performed by Mundo Martinez MD at [facility] DILATION AND CURETTAGE OF UTERUS PARTIAL HYSTERECTOMY [...] Physical Activity: Insufficiently Active (01/23/2024) Received from [facility] Exercise Vital Sign Days of Exercise per Week: 7 days Minutes of Exercise per Session: 10 min Stress: Stress Concern Present (01/23/2024) Received from [facility] [employer] [employer] - Occupational Stress Questionnaire Feeling of Stress : Rather much Social Connections: Socially Integrated (01/23/2024) Received from [facility] Social Connection and Isolation Panel [NHANES] Frequency of Communication with Friends and Family: More than three times a week Frequency of Social Gatherings with Friends and Family: Twice a week Attends [employer]: More than 4 times per year [...] nursing note reviewed. Exam conducted with a sky cap present. Constitutional: General: She is in acute [...] % 50 mL IVPB-MBP (0 g intravenous StopBag 04/08/24 2259) HYDROmorphone (DILAUDID) injection 1 mg (1 mg intravenous Given 04/08/241639) lidocaine-EPINEPHrine (XYLOCAINE W/EPI) 1 %-1:745912 injection 30 mL (20 mL intradermal Given [...] and physical exam, pt requires admission to Event Services Manager/Onc for IV antibiotics, pain control, general surgery [...] [JR] 1322 Pain Score: 10 [JR] 1406 Event Services Manager/Onc evaluating patient at bedside [JR] 1413 X-ray [...] 12 lead Sinus tachycardia, heart rate 103, [place] interval 134, QRS 75, QTC 427. No [...] using oral contrast might be considered if indicatedclinically. [JR] 1612 1 Hour Trop I, High [...] gynecology oncology team, awaiting disposition. IV antibiotics orderedfor coverage of necrotizing fasciitis [JR] 1631 Protime(!): [...] ED for chief complaint of ABD pain. Ptnotes that she has a HX of Salpingectomy, Oophorectomy, Gastrointestinal infections, Hysterectomy. Pt states that her most recent surgery was a oophorectomy on 03/28/2024 with Gyne Oncology as well as lysis of adhesions with Dr. Sultana via robotic surgery. [facility] and recommended [...] 4:29 PM Comment Diagnosis: Abdominal wall cellulitis [[id number]] Attending Provider: MILAD HERNANDEZ [[id number]] Estimated length of stay?: >2 midnights/In-patient only [...] Attestation: I, Dr. Melton personally performed a arns-qw-pvft diagnostic evaluation on this patient. I have [...] Resident 04/08/242000 Yordy Melton DO 04/09/24 0734 * Tim Jeffery CNA - 04/08/2024 11:29 AM EST Pt tearful in triage, lots of recent blood draws, requesting labs in back. documented in this encounterPar[facility] Emergency department Note* Tim Jeffery CNA - 04/08/2024 11:29 AM EST Pt tearful in triage, lots of recent blood draws, requesting labs in back. [facility]02-17-2025 Miscellaneous Notes* Telephone Encounter - Sofia Ku CMA - 04/08/2024 8:53 AM EST Patient called reporting persistent fever of 105 F that is not reducing with medication. She has been to the ED in [place] multiple times and has been sent home every time. She also reports pain andgreen drainage from her surgical incision. Spoke to Svetlana Ye PA-C; she recommends that patient visit [facility] ED and and wants to inform patient that our team and residents will be able to round on her there. Patient is agreeable to plan. documented in this encounterPar[facility]02-[facility]-2025 Telephone encounter Note* Telephone Encounter - Sofia Ku CMA - 04/08/2024 8:53 AM EST Patient called reporting persistent fever of 105 F that is not reducing with medication. She has been to the ED in [place] multiple times and has been sent home every time. She also reports pain andgreen drainage from her surgical incision. Spoke to Svetlana Ye PA-C; she recommends that patient visit [facility] ED and and wants to inform patient that our team and residents will be able to round on her there. Patient is agreeable to plan. [facility]02-11-[facility]25 History of Present illness Narrative* Yumiko Worrell LPN - 04/02/2024 1:00 PM EST Eyad Reason for Appointment: Patient ID: Margaret Nicholson is a 28 y.o. female who [...] 01/24/2023 Polycystic ovaries 01/24/2023 Psychogenic nonepileptic seizure ([facility]/HCC) 01/24/2023 Class 3 severe obesity due to excess calories without serious comorbidity with body mass index (BMI) of 50.0 to 59.9 in adult ([facility]) 03/21/2023 Mild persistent asthma with (acute) exacerbation ([facility]) 10/10/2023 Fatigue 01/01/2024 Encounter for long-term [...] Acute exacerbation of asthma with allergic rhinitis ([facility]) Allergies Asthma ([facility]) At low risk for fall Bipolar affective, mixed (HCC) ([facility]) Change in blood pressure Cholecystitis 2008 Depressive disorder ([facility]) OMID (generalized anxiety disorder) ([facility]) History of hysterectomy 10/01/2021 Insomnia, persistent Migraines ([facility]) Mild persistent asthma without complication ([facility]) Morbid obesity with BMI of 40.0-44.9, adult ([facility]) PCOS (polycystic ovarian syndrome) Right otitis media Seizures ([facility]/HCC) HISTORY PAST MEDICAL HISTORY SOCIAL HISTORY Past Medical History: Diagnosis Date Acute exacerbation of asthma with allergic rhinitis ([facility]) Allergies Asthma ([facility]) At low risk for fall Bipolar affective, mixed (HCC) ([facility]) Change in blood pressure high and low Cholecystitis 2008 Chronic migraine without aura without status migrainosus, not intractable ([facility]) Depressive disorder ([facility]) OMID (generalized anxiety disorder) ([facility]) History of hysterectomy 10/01/2021 Insomnia, persistent Migraines ([facility]/HCC) Mild persistent asthma without complication ([facility]) Morbid obesity with BMI of 40.0-44.9, adult ([facility]) PCOS (polycystic ovarian syndrome) Psychogenic nonepileptic seizure ([facility]) Right otitis media Seizures ([facility]) stressed induced Social History Tobacco Use [...] nursing note reviewed. Exam conducted with a sky cap present. Vitals: Estimated body mass index is [...] of: Zay Blas DO documented in this encounterSaint [facility] [id number] Miscellaneous Notes* Telephone Encounter - Jania Garrett CMA - 04/01/2024 11:12 AM EST Images from the original note were not included. Medication Received: Yesterday April Nicholson [facility] Gen Surg [facility] Clinical Staff Hello good afternoon I m still in a lot of pain from my surgery I ve been taking tynol and the pain pills that were given to me every four hours I was wondering if you can send it a refill of those to help me get throughplease Jania Garrett CMA 04/01/24 11:15 a.m. I tried to call the patient to check in with her & see how she was feeling today. Our NURSE'S AIDES TEACHER wanted to make sure that she's not having any nausea, vomiting, fever or chills. The patient didn't answer, so I left her a message. documented in this encounterPar[facility]02-10-2025 Telephone encounter Note* Telephone Encounter - Jania Garrett CMA - 04/01/2024 11:12 AM EST Images from the original note were not included. Medication Re[facility]: [facility] Clinical Staff Hello good afternoon I m still in a lot of pain from my surgery I ve been taking tynol and the pain pills that were given to me every four hours I was wondering if you can send it a refill of those to help [facility] Garrett CMA 04/01/24 11:15 a.m. I tried to call the patient to check in with her & see how she was feeling today. Our NURSE'S AIDES TEACHER wanted to make sure that she's not having any nausea, vomiting, fever or chills. The patient didn't answer, so I left her a message. [facility]02-10-[facility] History of Present illness Narrative* MARY Cintron - 04/01/2024 11:03 AM EST Dontrell called with persistent post operative pain s/p BSO. Her 5 day prescription for oxycodone did not contain enough tablets to be taken every 4 hours as written on prescription. Refill of 7 day supply, 42 tablets provided. Advised on proper dosing and administration, potential side effects, andpost op restrictions. MARY Cintron 04/01/24 1107 documented in this encounterParma [facility]02-10-2025 Miscellaneous Notes* Telephone Encounter - Samira Hartman RN - 04/01/2024 11:03 AM EST Patient had surgery on 03/28. lysis of adhesions, bilateral salpingo-oophorectomy. She has taken all her pain meds and is requesting more. States has been taking care of her sick child and carrying herwhich has increased her pain. Has been taking oxycodone every 4 hours due to that. Looks like she messaged general surgery yesterday asking for pain meds also. Message to Svetlana HERNANDEZ. * Telephone Encounter - Samira Hartman RN - 04/01/2024 11:03 AM EST Oxycodone refilled by Junior HERNANDEZ. TC to April to let her know. Reminded her of post op restrictions,, medication safety, and alternating with ibuprofen .She states she does not have Ibuprofen. Message to Svetlana to prescribe. Acknowledged understanding She states her mom is now helping her with her sick child. documented in this encounterPar[facility]02-10-2025 Telephone encounter Note* Telephone Encounter - Samira Hartman RN - 04/01/2024 11:03 AM EST Patient had surgery on 03/28. lysis of adhesions, bilateral salpingo-oophorectomy. She has taken all her pain meds and is requesting more. States has been taking care of her sick child and carrying herwhich has increased her pain. Has been taking oxycodone every 4 hours due to that. Looks like she messaged general surgery yesterday asking for pain meds also. Message to Svetlana HERNANDEZ. [facility]02-10-[facility] Telephone encounter Note* Telephone Encounter - Samira Hartman RN - 04/01/2024 11:03 AM EST Oxycodone refilled by Junior HERNANDEZ. TC to April to let her know. Reminded her of post op restrictions,, medication safety, and alternating with ibuprofen .She states she does not have Ibuprofen. Message to Svetlana to prescribe. Acknowledged understanding She states her mom is now helping her with her sick child. [facility]02-03-20[facility] Instructions* Patient Instructions* Mari Saldaña RN - 03/25/2024 2:15 PM EST Your surgery/procedure is scheduled at [facility] on 03-28-2024 at 9am Arrival Time: 7am [facility] Address: [address] [place] [address] Park in Parking lot located on [facility]. Report to the Entrance B. Check in at the information desk the surgery. The waiting room located on the second floor. If you have any questions prior to surgery, please call Pre-Admission Clinic at [phone] between 7:30 am and 4:30 pm Monday through Monday. If you have questions the morning of surgery, please call the Pre-op Department at [phone]. Notify your SURGEON if you develop any [...] specifically instructed by your surgeon to hold. STOPtaking all herbal products/teas one week prior to [...] piercings ,hair extensions that contain metal, nail new zealander, make-up, and contact lens. You may brush [...] items and leave them in the car untilyou are taken to your room after surgery. [...] following some types of surgeries involving the eyes,ears, sinuses and throat. Always follow your doctor's [...] RIGHTS AND RESPONSIBILITIES As a patient at [facility], you have the right to: Receive medical care and be informed of who is taking care of you Be treated with dignity and respect Have a family member/kiosk sales representative of choice and your physician notified of your admission Receive information and actively participate in decisions about your care and treatment Refuse care, treatment and services Decide who may provide your support and speak for you Access faith and spiritual services Participate in ethical issues [...] of hospital charges and payment methods Patient/patient kiosk sales representative responsibilities are to: Provide information [...] Germs live on your skin. This special soapwill help lower the amount of germs so [...] skin to hard. Be sure to wash thearea of your surgery very well. If showering, [...] surgery in clean clothes. documented in this encounterParma [facility] Hospital01-30-2025 Miscellaneous Notes* Telephone Encounter - Nicky Zapata - 03/21/2024 11:47 AM EST ----- Message from Dr. Mundo Martinez MD sent at 03/21/2024 11:39 AM EST ----- Should be ok ----- Message ----- From: Nicky Zapata Sent: 03/21/2024 9:43 AM EST To: Mundo Martinez MD Pt is going up to the [facility] tomorrow and getting migraine infusion Vyepti infusion for migranies, during the infusion pt will get Toradol and benadryl, patient has surgery next week and she wants to make sure this infusion is ok to take and will not delay surgery, please advise. * Telephone Encounter - Nicky Zapata - 03/21/2024 11:47 AM EST Pt was notified of Dr. Martinez response documented in this encounterParma [facility] Hospital01-30-2025 Telephone encounter Note* Telephone Encounter - Nicky Zapata - 03/21/2024 11:47 AM EST ----- Message from Dr. Mundo Martinez MD sent at 03/21/2024 11:39 AM EST ----- Should be ok ----- Message ----- From: Nicky Zapata Sent: 03/21/2024 9:43 AM EST To: Mundo Martinez MD Pt is going up to the [facility] tomorrow and getting migraine infusion Vyepti infusion for migranies, during the infusion pt will get Toradol and benadryl, patient has surgery next week and she wants to make sure this infusion is ok to take and will not delay surgery, please advise. [facility] Telephone encounter Note* Telephone Encounter - Nicky Zapata - 03/21/2024 11:47 AM EST Pt was notified of Dr. Martinez response [facility]01-30-2025 NoteHNO ID: [id number] Author: SAGAR BARTH APRN.NURSE'S AIDES TEACHER Service: ? Author Type: Nurse Practitioner Type: [...] visit. Either the patient or their legal kiosk sales representative has been informed of the [...] XL, Qudexy) Anti-Depressant and Antipsychotic Amitriptyline (Elavil) [place] (Eskalith, Lithobid) Nortriptyline (Pamelor, Aventyl) Anti-Migraine Dihydroergotamine [...] ZOLMitriptan (ZOMIG) 5 mg nasal sprayUse 1 [place] in the nose as needed at onset [...] capsule by mouth ann (more content not included)...[facility]01-30-2025 History of Present illness Narrative* Sagar Barth APRN.NURSE'S AIDES TEACHER - 03/21/2024 8:48 AM EST Images from the original note were not [...] visit. Either the patient or their legal kiosk sales representative has been informed of the [...] itchiness and nausea, but she tolerates with addingIV benadryl and toradol). Per pt she has [...] XL, Qudexy) Anti-Depressant and Antipsychotic Amitriptyline (Elavil) [place] (Eskalith, Lithobid) Nortriptyline (Pamelor, Aventyl) Anti-Migraine Dihydroergotamine [...] ZOLMitriptan (ZOMIG) 5 mg nasal spray^Use 1 [place] in the nose as needed at onset [...] these with the patient: yes Sagar Barth APRN.NURSE'S AIDES TEACHER HEADACHE SCORES: 12/05/2023 01/17/2024 03/20/2024 Headache Questions [...] Lymph 1.00 - 4.00 k/uL 0.84 Abs [place] <0.87 k/uL 0.06 Abs Eosin <0.46 k/uL [...] custodial memory, cognition and general fund of knowledgeare [...] examination is essentially normal at this visit althoughthis is limited due to nature of telehealth. [...] XL, Qudexy) Anti-Depressant and Antipsychotic Amitriptyline (Elavil) [place] (Eskalith, Lithobid) Nortriptyline (Pamelor, Aventyl) Blood Pressure [...] 30 minutes Sagar Barth APRN.FADY Headache Section [facility] March 21, 2024 documented in this encounterParkwood Hospital01-29-[facility] History of Present illness Narrative* Vincent Peña, DO - 03/20/2024 12:00 PM EST Images from the original note were not [...] pulmonary with Dr. Jason at [facility]. She has been treated with Trelegy 100 [...] multiple hospitalizations. Her last hospitalization was roughly 2017 after delivery of her 3rd child. She has not previously been on biologics and no formalallergy evaluation. She does feel as though she has seasonal and environmental allergies. Her daughter has a diagnosis of PCD and she is questioning if this is a consideration in herself. She frequently has nocturnal symptoms of her asthma. She reports that she is compliant maintenance therapy. Shedoes feel better on steroids. She has frequent [...] Advised to use t.i.d. for now. Should use1st in a.m. prior to using maintenance inhaler [...] The patient was encouraged to call me withany concerns prior. Thank you for allowing me to participate in your patient's care. Past Medical History: Diagnosis Date Anxiety Asthma BV (bacterial vaginosis) Depression Migraine Seizure ([facility]) Past Surgical History: Procedure Laterality Date APPENDECTOMY SECTION CHOLECYSTECTOMY DILATION AND CURETTAGE OF UTERUS HYSTERECTOMY 10/01/2021 TUBAL LIGATION Bee venom protein (honey bee), Adhesive, Dihydroergotamine, Adhesive tape- silicones, Carbamazepine,Ciprofloxacin, Clindamycin, Dexamethasone, Dextromethorphan, Keflex [cephalexin], Levetiracetam, Metoclopramide, [...] TWO PUFFS BY MOUTH EVERY 4 HOURS NEEDED06/07/22 Yes ELSIE Luke ARIPiprazole (ABILIFY) 10 mg tablet Take 1 tablet (10 mg total) by mouth in the morning. Yes Not InSystem Ref Prov baclofen (LIORESAL) 10 mg tablet [...] (exposure to allergen). 06/07/22 Yes ELSIE Luke smahxeruzxv-dtypdmekb-xkrkoerd (TRELEGY ELLIPTA) 100-62.5-25 mcg blister with device daily. Yes NotIn System Ref Prov fremanezumab-vfrm 225 mg/1.5 mL [...] tablet,disintegrating disintegrating tablet Dissolve 2 tablets (100 mgtotal) on tongue in the morning. Yes Not In System Ref Prov levalbuterol (XOPENEX HFA) 45 mcg/actuation inhaler Inhale 1-2 puffs every 4 (four) hours as neededfor wheezing. 01/27/22 Yes SARAHI Mccall lithium carbonate [...] tongue daily as needed (migraines). 10/29/20 Yes SARAHI Powell scopolamine (TRANSDERM-SCOP) 1 mg/[address] 1 patch on the skin every third day for 10 doses. 03/18/24 04/15/24 Yes Mundo Martinez MD traZODone (DESYREL) 100 mg tablet Take 2 tablets (200 mg total) by mouth nightly. Yes Not In SystemRef Prov vilazodone (VIIBRYD) 20 mg tablet 2 [...] or resolving consolidation from community-acquired, atypical infection oraspiration among other etiologies. Other considerations including malignancy not excluded, therefore clinical correlation and short-term radiographic follow-up to document appropriate clearing is recommended. These findings do not clear in a timely fashion, then CT chest is warranted. Dr. Vincent Peña DO. [facility] Critical [facility] Office: [phone] documented in this encounterParma [facility] History of Present illness Narrative* Mundo Martinez MD - 03/18/2024 11:00 AM EST Subjective: April is a 28 y.o. female [...] causes her to hunch over. She has triedOCPs prior to her hyst which also didn't help. In 2021, she had a hyst as he didn't want any more kids and that the hyst would possibly help her pain, but it didn't. She was reported to have PCOS andsince the hyst has had ruptured hemorrhagic cysts and has had a cystectomy at the time of hyst. Shethen had a laparoscopic exploration in 2022 for lysis of adhesions - just found a lot of scar tissue. The plan was for bilateral oophorectomy but patient states there was too much scar tissue for to safely do it. Pt reports having [...] bleeding has been going on for a longtime Reports vomiting that is severe and associated [...] which is why she doesn't go to [place] or [place]. She has had diarrhea for the last [...] lot of steroids. 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 Last hospitalized a couple years ago. Not [...] Asthma BV (bacterial vaginosis) Depression Migraine Seizure ([facility]) Lamictal for non-epileptiform seizure and depression/anxiety [...] of RLQ. Vagina normal without discharge or lesions.Exam chaperoned by: Sofia Ku MA Extremities: extremities [...] Recommend pelvic ultrasound for further evaluation if clinicallyindicated. Approved by Resident Piero Hernandez DO on 02/10/2024 12:45 AM I, Sundar Sool MD have personally reviewed the image(s) and agree with and/or edited the report Finalized by Sundar Solo MD on 02/10/2024 12:59 AM Assessment: Patient is diagnosed with Patient Active Problem List Diagnosis Encounter for observation of suspected anomaly not found LOC (loss of consciousness) ([facility]) Migraine with aura and without status [...] including prior surgeries, ovulation suppression, and hysterectomy. Icounseled her on the risks of surgical menopause [...] procedures Referring and communicating with other health manager progressive care (not separately reported) Documenting clinical information in the electronic or other health record Independently interpreting results (not separately reported) and communicating results to the patient/family/caregiver Care coordination (not separately reported) [place] and lamictal, trazodone as needed MUNDO MARTINEZ MD documented in this encounterParma Community [facility]01-15-2025 History of Present illness Narrative* Yumiko Worrell LPN - 03/06/2024 11:00 AM EST Reason for Appointment: Patient ID: Margaret Nicholson is a 28 y.o. female who [...] in female 12/19/2022 Mixed bipolar I disorder ([facility]) 01/24/2023 Chronic migraine without aura without status migrainosus, not intractable ([facility]) 01/24/2023 Generalized anxiety disorder ([facility]) 01/24/2023 Persistent disorder of initiating or maintaining sleep 01/24/2023 Mild persistent asthma ([facility]) 01/24/2023 Polycystic ovaries 01/24/2023 Psychogenic nonepileptic seizure ([facility]) 01/24/2023 Class 3 severe obesity due to excess calories without serious comorbidity with body mass index (BMI) of 50.0 to 59.9 in adult ([facility]) 03/21/2023 Mild persistent asthma with (acute) exacerbation ([facility]) 10/10/2023 Fatigue 01/01/2024 Encounter for long-term [...] Acute exacerbation of asthma with allergic rhinitis ([facility]) Allergies Asthma ([facility]) At low risk for fall Bipolar affective, mixed ([facility]) ([facility]) Change in blood pressure Cholecystitis 2009 Depressive disorder ([facility]) OMID (generalized anxiety disorder) ([facility]) History of hysterectomy 10/01/2021 Insomnia, persistent Migraines ([facility]) Mild persistent asthma without complication ([facility]) Morbid obesity with BMI of 40.0-44.9, adult ([facility]) PCOS (polycystic ovarian syndrome) Right otitis media Seizures ([facility]) HISTORY PAST MEDICAL HISTORY SOCIAL HISTORY Past Medical History: Diagnosis Date Acute exacerbation of asthma with allergic rhinitis ([facility]) Allergies Asthma ([facility]) At low risk for fall Bipolar affective, mixed (HCC) ([facility]) Change in blood pressure high and low Cholecystitis 2008 Chronic migraine without aura without status migrainosus, not intractable ([facility]) Depressive disorder ([facility]) OMID (generalized anxiety disorder) ([facility]) History of hysterectomy 10/01/2021 Insomnia, persistent Migraines ([facility]) Mild persistent asthma without complication ([facility]) Morbid obesity with BMI of 40.0-44.9, adult ([facility]) PCOS (polycystic ovarian syndrome) Psychogenic nonepileptic seizure ([facility]) Right otitis media Seizures ([facility]) stressed induced Social History Tobacco Use [...] nursing note reviewed. Exam conducted with a sky cap present. Vitals: Estimated body mass index is [...] of: Zay Blas DO documented in this encounterSaint Luke[facility] Hospital–Barry [id number] History of Present illness Narrative* Yumiko Worrell LPN - 02/28/2024 11:10 AM EST Reason for Appointment: Patient ID: Margaret Nicholson is a 28 y.o. female who [...] in female 12/19/2022 Mixed bipolar I disorder ([facility]) 01/24/2023 Chronic migraine without aura without status migrainosus, not intractable ([facility]) 01/24/2023 Generalized anxiety disorder ([facility]) 01/24/2023 Persistent disorder of initiating or maintaining sleep 01/24/2023 Mild persistent asthma ([facility]) 01/24/2023 Polycystic ovaries 01/24/2023 Psychogenic nonepileptic seizure ([facility]) 01/24/2023 Class 3 severe obesity due to excess calories without serious comorbidity with body mass index (BMI) of 50.0 to 59.9 in adult ([facility]) 03/21/2023 Mild persistent asthma with (acute) exacerbation ([facility]) 10/10/2023 Fatigue 01/01/2024 Encounter for long-term [...] Acute exacerbation of asthma with allergic rhinitis ([facility]) Allergies Asthma ([facility]) At low risk for fall Bipolar affective, mixed (HCC) ([facility]) Change in blood pressure Cholecystitis 2009 Depressive disorder ([facility]) OMID (generalized anxiety disorder) ([facility]) History of hysterectomy 10/01/2021 Insomnia, persistent Migraines (CMS/HCC) Mild persistent asthma without complication (CMS/HCC) Morbid obesity with BMI of 40.0-44.9, adult ([facility]) PCOS (polycystic ovarian syndrome) Right otitis media Seizures ([facility]/HCC) HISTORY PAST MEDICAL HISTORY SOCIAL HISTORY Past Medical History: Diagnosis Date Acute exacerbation of asthma with allergic rhinitis (CMS/HCC) Allergies Asthma (CMS/HCC) At low risk for fall Bipolar affective, mixed (HCC) ([facility]) Change in blood pressure high and low Cholecystitis 2008 Chronic migraine without aura without status migrainosus, not intractable ([facility]/HCC) Depressive disorder ([facility]/HCC) OMID (generalized anxiety disorder) ([facility]) History of hysterectomy 10/01/2021 Insomnia, persistent Migraines (CMS/HCC) Mild persistent asthma without complication ([facility]) Morbid obesity with BMI of 40.0-44.9, adult ([facility]) PCOS (polycystic ovarian syndrome) Psychogenic nonepileptic seizure ([facility]) Right otitis media Seizures ([facility]) stressed induced Social History Tobacco Use [...] nursing note reviewed. Exam conducted with a sky cap present. Vitals: Estimated body mass index is [...] of: Zay Blas DO documented in this encounterNONorthwest Medical [id number] Telephone encounter Note* Telephone Encounter - Claudia Lemon - 02/26/2024 1:05 PM EST Pt advised [facility] [id number] Miscellaneous Notes* Telephone Encounter - Claudia Lemon - 02/26/2024 1:05 PM EST Pt advised * Telephone Encounter - Mesha Zelaya LPN - 02/26/2024 11:25 AM EST UNABLE TP ACCEPT PT * Telephone Encounter - Claudia Lemon - 02/26/2024 11:12 AM EST Patients elizabeth harmon is gma and they are both pts of DB. 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 And if not db she asked for dominic. Pt does know we are not accepting new patients but asked if I could send this back - was told no on Monday. documented in this encounterSaint Luke's [facility] Hospital–Barry [id number] Telephone encounter Note* Telephone Encounter - Mesha Zelaya LPN - 02/26/2024 11:25 AM EST UNABLE TP ACCEPT PT [facility] [id number] Telephone encounter Note* Telephone Encounter - Claudia Lemon - 02/26/2024 11:12 AM EST Patients elizabeth harmon is gma and they are both pts of DB. 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 And if not db she asked for dominic. Pt does know we are not accepting new patients but asked if I could send this back - was told no on Monday. [facility] [id number] Telephone encounter Note* Telephone Encounter - Jannette Castrejon, PRATIBHA - 02/22/2024 12:02 PM ESTSumderik: MARY Jordan Images from the original note were not included. Prior Authorization submitted via CoverMyMeds on 02/22/2024: Insurance: [place] Medicaid Medication: Zolmitriptan Chong Code: [id number] Awaiting Response [facility]01-02-2025 Miscellaneous Notes* Telephone Encounter - Jannette Castrejon RN - 02/22/2024 12:02 PM ESTSummary: MARY Zolmitriptan Images from the original note were not included. Prior Authorization submitted via CoverMyMeds on 02/22/2024: Insurance: [place] Medicaid Medication: Zolmitriptan Chong Code: [id number] Awaiting Response documented in this encounterParkwood Hospital12-20-2024 History of Present illness Narrative* Lamont Blair MD - 02/09/2024 12:19 PM ESTAssociated Problem(s): Mild persistent asthma with (acute) exacerbation ([facility]) Recent flare but not able to take oral medication. Shot of medrol in office. Use albuterol PRN. * Lamont Blair MD - 02/09/2024 12:19 PM ESTAssociated Problem(s): Intractable nausea and vomiting Severe nausea and emesis, not able to drink or take medication. To ER several times and weight down20 pounds in the past 2 1/2 weeks. Will attempt to get zofran pump from home health. Check CT abdomen. Follow with GI. * Lamont Blair MD - 02/09/2024 12:18 PM ESTAssociated Problem(s): Generalized abdominal pain Unclear cause of pain and check CT. Referred to GI. * Lamont Blair MD - 02/09/2024 10:30 AM EST Images from the original note were not included. Subjective Patient ID: Margaret Nicholson is a 28 y.o. female who [...] and wo IV contrast documented in this encounterSaint Luke's North Hospital–Barry [id number] Note* Addendum Note - Sagar Barth APRN.CNP - 01/30/2024 2:59 PM ESTAddended by: SAGAR BARTH on: 01/30/2024 02:59 PM Modules accepted: Orders [facility]12-10-2024 Telephone encounter Note* Telephone Encounter - Sagar Barth APRN.CNP - 01/30/2024 2:59 PM EST The following approved medication requests have been transmitted electronically. Requested Prescriptions Signed Prescriptions Disp Refills ZOLMitriptan (ZOMIG) 5 mg nasal spray 12 Each 5 Sig: Use 1 [place] in the nose as needed at onset of migraine headache. If symptoms persist or return, may repeat dose in other nostril after 2 hours. Maximum of 2 sprays per 24 hours Authorizing Provider: SAGAR BARTH APRN.CNP [facility]12-10-2024 Miscellaneous Notes* Addendum Note - Sagar Barth APRN.CNP - 01/30/2024 2:59 PM ESTAddended by: SAGAR BARTH on: 01/30/2024 02:59 PM Modules accepted: Orders * Telephone Encounter - Sagar Barth APRN.CNP - 01/30/2024 2:59 PM EST The following approved medication requests have been transmitted electronically. Requested Prescriptions Signed Prescriptions Disp Refills ZOLMitriptan (ZOMIG) 5 mg nasal spray 12 Each 5 Sig: Use 1 [place] in the nose as needed at onset of migraine headache. If symptoms persist or return, may repeat dose in other nostril after 2 hours. Maximum of 2 sprays per 24 hours Authorizing Provider: SAGAR BARTH APRN.CNP * Telephone Encounter - Sagar Barth APRN.CNP - 01/30/2024 2:56 PM EST Dispense 12 pls. I rewrote the rx. Sagar Barth APRN.CNP * Telephone Encounter - Amy Shrestha MA - 01/29/2024 11:18 AM EST Per last Rx on 11/10/2023: Disp Refills Start End ZOLMitriptan (ZOMIG) 5 mg nasal spray 10 Each 5 11/10/2023 -- Sig: Use 1 [place] in the nose as needed at onset of migraine headache. If symptoms persist or return, may repeat dose in other nostril after 2 hours. Maximum of 2 sprays per 24 hours I called the pharmacy and hey need to know if Provider would like to dispense #6 or #12 cartridges.They do not come in 10. Please advise. Thank you * Telephone Encounter - Kelsey Patel - 01/29/2024 10:51 AM EST Name of Caller: nicky Relationship to patient: pharmacy Last visit in this department: 09/19/2023 Reason for Call: Other : need to verify quantity on zolmitriptan. Callback number: [phone] documented in this encounterParkwood Hospital12-10-2024 Telephone encounter Note * Telephone Encounter - Sagar Barth APRN.CNP - 01/30/2024 2:56 PM EST Dispense 12 pls. I rewrote the rx. Sagar Barth APRN.CNP [facility]12-09-2024 Telephone encounter Note* Telephone Encounter - Amy Shrestha MA - 01/29/2024 11:18 AM EST Per last Rx on 11/10/2023: Disp Refills Start End ZOLMitriptan (ZOMIG) 5 mg nasal spray 10 Each 5 11/10/2023 -- Sig: Use 1 [place] in the nose as needed at onset of migraine headache. If symptoms persist or return, may repeat dose in other nostril after 2 hours. Maximum of 2 sprays per 24 hours I called the pharmacy and hey need to know if Provider would like to dispense #6 or #12 cartridges.They do not come in 10. Please advise. Thank you [facility]12-09-2024 Telephone encounter Note* Telephone Encounter - Kelsey Patel - 01/29/2024 10:51 AM EST Name of Caller: nicky Relationship to patient: pharmacy Last visit in this department: 09/19/2023 Reason for Call: Other : need to verify quantity on zolmitriptan. Callback number: [phone] [facility]12-03-20[facility] History of Present illness Narrative* Lamont Blair MD - 01/23/2024 1:55 PM ESTAssociated Problem(s): SOB (shortness of breath) on exertion Severe symptom and check CXR. Use albuterol PRN and start prednisone. * Lamont Blair MD - 01/23/2024 1:55 PM ESTAssociated Problem(s): Mild persistent asthma with (acute) exacerbation ([facility]) Continued symptoms and treat with prednisone and doxy. Use albuterol every 4 hours x 48 hours then PRN. Use OTC PRN cough or congestion. * Lamont Blair MD - 01/23/2024 1:55 PM ESTAssociated Problem(s): Generalized edema Unclear etiology and check labs and CXR. Start lasix PRN. * Lamont Blair MD - 01/23/2024 1:15 PM EST Images from the original note were not included. Subjective Patient ID: Margaret Nicholson is a 28 y.o. female who presents for Shortness of Breath and Leg Swelling. C/o not feeling well for several weeks. Severe fatigue for over a month. Developed severe SOB. Continued cough and SOB with exertion. Severe fatigue and no energy. Fatigue and SOB with walking aroundhouse. Cough dry and nonproductive. Reports temp 103. Using albuterol and no change. Developed swell ing in feet and hand. Skin feels tight [...] Mild persistent asthma with (acute) exacerbation (CMS/HCC) - Primary Continued symptoms and treat with [...] panel CBC and differential documented in this encounterSaint Luke's North Hospital–Barry [id number] NoteHNO ID: [id number] Author: GETAHCEW DOMINGO RN Service: ? Author Type: Registered Nurse Type: Progress Notes Filed: 01/22/2024 15:58 Note Text: Pt in for third day of infusion. Pt rated headache 9/10. Pt has severe nausea and moderate dizziness. Educated pt on medications to be administered. Pt agreed to proceed as ordered. Radiotelegraphist yes Patient reports she stopped vomiting but nausea is still pretty severe. She continues to retain fluids, hands and lower extremities appear puffy, non pitting edema. Mohamed Hamdan, NURSE'S AIDES TEACHER aware, patient seen. Patient referred to pcp [...] room via wheelchair to her in the lobby.[facility]12-02-[facility] History of Present illness Narrative* Getachew Domingo RN - 01/22/2024 2:18 PM EST Pt in for third day of infusion. Pt rated headache 9/10. Pt has severe nausea and moderate dizziness. Educated pt on medications to be administered. Pt agreed to proceed as ordered. Radiotelegraphist yes Patient reports she stopped vomiting but nausea is still pretty severe. She continues to retain fluids, hands and lower extremities appear puffy, non pitting edema. Palomo Shields CNP aware, patientseen. Patient referred to pcp for s/s management. [...] her in the lobby. documented in this encounterParkwood Hospital12-02-2024 NoteHNO ID: [id number] Author: RAIZA SHIELDS APRN.NURSE'S AIDES TEACHER Service: ? Author Type: Nurse Practitioner Type: [...] Lymph 1.00 - 4.00 k/uL 0.84 Abs [place] <0.87 k/uL 0.06 Abs Eosin <0.46 k/uL [...] ZOLMitriptan (ZOMIG) 5 mg nasal sprayUse 1 [place] in the nose as needed at onset [...] and clear, coherent, and relevant. 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 Short and custodial memory, cognition [...] prescribed weight loss medication but did not startthis yet). Denies any chest pain, VSS. Will hold extra IV fluids during today's infusions. Follow up plan: Resume previous at home medications. Level of service: Est level 2 (10-19 min). Time spent 10 min on the day of service, which included preparing to see the patient, [id number] patient care, completing clinical documentation, and obtaining and/or reviewing separately obtained history. Raiza Shields APRN.FADY [facility]ache [facility] January 22, 2024 documented in this encounterParkwood Hospital11-29-2024 NoteHNO ID: [id number] Author: GETACHEW DOMINGO RN Service: ? Author Type: Registered Nurse Type: Progress Notes Filed: 01/19/2024 11:55 Note Text: Pt in for second day of infusion. Pt rated headache 10/10. Pt has severe nausea and severe dizziness. Educated pt on medications to be administered. Pt agreed to proceed as ordered. Radiotelegraphist: yes Patient took Valium 10 mg tabl [...] note, hands slightly puffy. Discussed with Demond Shabazz CNP. Ольга to see patient. 1102 Anxiety resolved. Headache 5/10, mild nausea. Patient sleeping on and off. Seen by Demond Shabazz CNP, per Demond Shabazz CNP continue with infusion as ordered. Pt [...] Pt d/c via wheelchair to her in [facility]. Instructed patient and to take caution with ambulating. Patient is feeling sedated.[facility]11-29-2024 History of Present illness Narrative* Getachew Domingo RN - 01/19/2024 9:37 AM EST Pt in for second day of infusion. Pt rated headache 10/10. Pt has severe nausea and severe dizziness. Educated pt on medications to be administered. Pt agreed to proceed as ordered. Radiotelegraphist: yes Patient took Valium 10 mg tabl [...] she vomited 3 times. This morning she vomitedonce when she smelled food. Some ankle edema note, hands slightly puffy. Discussed with Demond Shabazz CNP. Ольга to see patient. 1102 Anxiety resolved. Headache 5/10, mild nausea. Patient sleeping on and off. Seen by Demond Shabazz CNP, per Demond Shabazz CNP continue with infusion as ordered. Pt [...] Pt d/c via wheelchair to her in [facility]. Instructed patient and to take caution with ambulating. Patient is feeling sedated. documented in this encounterParkwood Hospital11-27-2024 NoteHNO ID: [id number] Author: CLAUDIA MAYNARD RN Service: ? Author [...] PRN Zofran given for nausea. Discharged to spotter driver via wheelchair.[facility]11-27-2024 History of Present illness Narrative* Claudia Maynard, PRATIBHA - 01/17/2024 8:12 AM EST Patient arrived to infusion suite rating pain [...] PRN Zofran given for nausea. Discharged to spotter driver via wheelchair. documented in this encounterParkwood Hospital11-27-2024 NoteHNO ID: [id number] Author: ОЛЬГА SHABAZZ APRN.NURSE'S AIDES TEACHER Service: ? Author Type: Nurse Practitioner Type: Progress Notes Filed: 01/17/2024 07:59 Note Text: Headache Center - Virtual Visit Infusion Triage This visit was conducted as a virtual visit, with patient's permission, via ZOOM. It required patient-provider interaction for the medical decision making as documented below. Patient stated name and Patient location [place], [place] I have communicated my name and active licensure. The patient's identity and physical location were verified at the time of this visit. Either the patient or their legal kiosk sales representative has been informed of the [...] have you tried for this headache cycle: Sissy Cobb, New health events/diagnosis since last visit (MS/stroke/DM/HTN/etc): denies Cardiovascular risk factors: obesity Past infusion intolerances: 03/2023; Phenergan,Benadryl,Toradol,NS,Robaxin,compazine(listed intolerance) Headache 1 Location: holcephalic Quality/Description: throbbing and pressure Associated Symptoms: Photophobia: yes Phonophobia: yes Nausea: yes Vomiting: yes Other symptoms: osmophobia Worse with activity: yes Number of migraine headache days/month: 20 Migraine headache severity: 1010 Number of headache free days/month: 7 Duration [...] Lymph 1.00 - 4.00 k/uL 0.84 Abs Acadia <0.87 k/uL 0.06 Abs Eosin <0.46 k/uL <0.03 Abs Baso <0.11 k/uL <0.03 NRBC /100 WBC 0.0 Analgesic Ketorolac (Toradol) Anti-Convulsant Lamotrigine (Lamictal) Topiramate (Topamax, Trokendi XL, Qudexy) Anti-Depressant and Antipsychotic Amitriptyline (Elavil) [place] (Eskalith, Lithobid) Nortriptyline (Pamelor, Aventyl) Anti-Migraine Dihydroergotamine [...] sprayUse 1 Sp (more content not included)... [facility]11-26-2024 Telephone encounter Note* Telephone Encounter - Michelle Givens RN - 01/16/2024 9:25 AM EST PAPO: 12/05/2023 with Ольга Shabazz APRN.NURSE'S AIDES TEACHER [facility]11-26-2024 Miscellaneous Notes* Telephone Encounter - Michelle Givens RN - 01/16/2024 9:25 AM EST PAPO: 12/05/2023 with Ольга Shabazz APRN.NURSE'S AIDES TEACHER documented in this encounterParkwood Hospital11-19-2024 History of Present illness Narrative* Lamont Blair MD - 01/09/2024 10:08 AM ESTAssociated Problem(s): Chronic migraine without aura without status migrainosus, not intractable (CMS/HCC) PINEDA worse and follow with specialists. * Lamont Blair MD - 01/09/2024 10:08 AM ESTAssociated Problem(s): Class 3 severe obesity due to [...] month. OARRS reviewed. Continue medications as prescribed. * Lamont Blair MD - 01/09/2024 10:08 AM ESTAssociated Problem(s): Fatigue Possibly related to bipolar. Check labs. * Lamont Blair MD - 01/09/2024 10:07 AM ESTAssociated Problem(s): Mixed bipolar I disorder (CMS/HCC) Denies worsening symptoms and follow with specialists * Lamont Blair MD - 01/09/2024 10:07 AM ESTAssociated Problem(s): Pain, dental Broken tooth and follow with dentist. Gargle with warm salt water. Start ultram PRN. * Lamont Blair MD - 01/09/2024 9:15 AM EST Images from the original note were not included. Subjective Patient ID: Margaret Nicholson is a 28 y.o. female who [...] in past several months. Tries to watch dietand eat healthy. Increased fruits and vegetables. Smaller [...] and follow with specialists. Mild persistent asthma ([facility]/HCC) - Primary Class 3 severe obesity due to excess calories without serious comorbidity with body mass index (BMI) of 50.0 to 59.9 in adult ([facility]) Patient overweight and difficult time losing [...] (Ultram) 50 MG tablet documented in this encounterSaint [facility]ry [id number] NoteHNO ID: [id number] Author: LENNIE PALACIOS RN Service: ? Author [...] after Benadryl given. 1345 Patient discharged to spotter driver in wheelchair , patient sleepy but verbalizing and ambulating wheelchair used as a precaution Patient able to walk to wheelchair without difficulty.[facility]11-15-2024 History of Present illness Narrative* Lennie Palacios, PRATIBHA - 01/05/2024 12:34 PM EST 1230 Patient admitted for Vyepti 100 mg [...] after Benadryl given. 1345 Patient discharged to spotter driver in wheelchair , patient sleepy but verbalizing and ambulating wheelchair used as a precaution Patient able to walk to wheelchair without difficulty. documented in this encounterParkwood Hospital10-15-2024 History of Present illness Narrative* Ольга Shabazz APRN.NURSE'S AIDES TEACHER - 12/05/2023 7:00 AM EDT Images from the original note were not included. Headache Center - Follow up Virtual Visit Last OV: 08/23/23 Sona Barth APRN Accompanied by: Self This visit was conducted as a virtual visit, with patient's permission, via ZOOM. It required patient-provider interaction for the medical decision making as documented below. Patient stated name and Patient location [place], [place] I have communicated my name and active licensure. The patient's identity and physical location wereverified at the time of this visit. Either the patient or their legal kiosk sales representative has been informed of the risks and benefits of -- and alternatives to -- treatment through a remote evaluation andconsents to proceed with the evaluation remotely. Primary [...] (ZOMIG) 5 mg nasal spray Use 1 [place] in the nose as needed at onset [...] discussed these with the patient: yes Ольга Shabazz APRN.NURSE'S AIDES TEACHER Studies to Review: No New Health Issues: [...] XL, Qudexy) Anti-Depressant and Antipsychotic Amitriptyline (Elavil) [place] (Eskalith, Lithobid) Nortriptyline (Pamelor, Aventyl) Blood Pressure [...] which included preparing to see the patient, [id number] patient care, completing clinical documentation, and counseling and educating the patient/family/caregiver. Ольга Shabazz APRN.NURSE'S AIDES TEACHER documented in this encounterParkwood Hospital09-25-2024 History of Present illness Narrative* Lamont Blair MD - 11/15/2023 9:45 AM EDTAssociated Problem(s): Mixed bipolar I disorder (CMS/HCC) Follow with specialists * Lamont Blair MD - 11/15/2023 9:42 AM EDTAssociated Problem(s): Acute bronchitis due to other specified organisms Continued symptoms and treat with prednisone and bactrim. Use albuterol every 4 hours x 48 hours then PRN. Use OTC PRN cough or congestion. * Lamont Blair MD - 11/15/2023 8:45 AM EDT Images from the original note were not included. Subjective Patient ID: Margaret Nicholson is a 28 y.o. female who presents for Follow-up (Fever runny nose, vomiting, ). HPI Review of Systems Objective Physical Exam Assessment/Plan * Lamont Blair MD - 11/15/2023 8:45 AM EDT Images from the original note were not included. Subjective Patient ID: Margaret Nicholson is a 28 y.o. female who [...] 800-160 MG per tablet documented in this encounterSaint Luke[facility] Hospital–Barry [id number] Telephone encounter Note* Telephone Encounter - Sagar Barth APRN.CNP - 11/10/2023 2:12 PM EDT The following approved medication requests have been transmitted electronically. Requested Prescriptions Signed Prescriptions Disp Refills ZOLMitriptan (ZOMIG) 5 mg nasal spray 10 Each 5 Sig: Use 1 [place] in the nose as needed at onset [...] spasm (migraine). Authorizing Provider: SAGAR BARTH APRN.CNP [facility]09-20-2024 Miscellaneous Notes* Telephone Encounter - Sagar Barth APRN.CNP - 11/10/2023 2:12 PM EDT The following approved medication requests have been transmitted electronically. Requested Prescriptions Signed Prescriptions Disp Refills ZOLMitriptan (ZOMIG) 5 mg nasal spray 10 Each 5 Sig: Use 1 [place] in the nose as needed at onset [...] spasm (migraine). Authorizing Provider: SAGAR BARTH APRN.CNP * Telephone Encounter - Michelle Givens RN - 11/10/2023 1:26 PM EDT patient requesting refill via Mychart. Last OV: 09/19/2023 Future OV: None scheduled Last prescribed: 4 months ago (07/10/2023) by Sagar Barth APRN.CNP Requested Prescriptions Pending Prescriptions Disp Refills ZOLMitriptan (ZOMIG) 5 mg nasal spray 10 Each 5 Sig: Use 1 [place] in the nose as needed at onset [...] for muscle spasm (migraine). documented in this encounterParkwood Hospital09-20-2024 Telephone encounter Note * Telephone Encounter - Sagar Barth APRN.CNP - 11/10/2023 2:11 PM EDT The following approved medication requests have been transmitted electronically. Requested Prescriptions Signed Prescriptions Disp Refills promethazine (PHENERGAN) 25 mg tablet 90 tablet 5 Sig: Take 1 tablet by mouth every 4 hours as needed. FOR NAUSEA Authorizing Provider: SAGAR BARTH APRN.CNP [facility]09-20-2024 Miscellaneous Notes* Telephone Encounter - Sagar Barth APRN.CNP - 11/10/2023 2:11 PM EDT The following approved medication requests have been transmitted electronically. Requested Prescriptions Signed Prescriptions Disp Refills promethazine (PHENERGAN) 25 mg tablet 90 tablet 5 Sig: Take 1 tablet by mouth every 4 hours as needed. FOR NAUSEA Authorizing Provider: SAGAR BARTH APRN.CNP * Telephone Encounter - Shana Gibbs - 11/10/2023 1:42 PM EDT Physician: Tab Call from patient requesting refill. Please E-Scribe Last office visit 09/19/23 with Tab in person Next office visit N/A Requested Prescriptions Pending Prescriptions Disp Refills promethazine (PHENERGAN) 25 mg tablet 90 tablet 1 Sig: Take 1 tablet by mouth every 4 hours as needed. FOR NAUSEA [facility] documented in this encounterParkwood Hospital09-20-2024 Telephone encounter Note * Telephone Encounter - Shana Gibbs - 11/10/2023 1:42 PM EDT Physician: Tab Call from patient requesting refill. Please E-Scribe Last office visit 09/19/23 with Tab in person Next office visit N/A Requested Prescriptions Pending Prescriptions Disp Refills promethazine (PHENERGAN) 25 mg tablet 90 tablet 1 Sig: Take 1 tablet by mouth every 4 hours as needed. FOR NAUSEA Pharm[facility] Name: [facility] Telephone encounter Note* Telephone Encounter - Michelle Givens RN - 11/10/2023 1:26 PM EDT patient requesting refill via [employer]. Last OV: 09/19/2023 Future OV: None scheduled Last prescribed: 4 months ago (07/10/2023) by Sagar Barth APRN.NURSE'S AIDES TEACHER Requested Prescriptions Pending Prescriptions Disp Refills ZOLMitriptan (ZOMIG) 5 mg nasal spray 10 Each 5 Sig: Use 1 [place] in the nose as needed at onset [...] day as needed for muscle spasm (migraine). [facility]08-23-[facility] History of Present illness Narrative* Getachew Domingo RN - 10/13/2023 12:44 PM EDT Pt in for Vyepti infusion. Pt rated headache 8 /10. Pt has severe nausea and mild dizziness. Educated pt on medications to be administered. Pt agreed to proceed as ordered. Radiotelegraphist: yes Zofran 8 mg IVP given for severe nausea. 1310 Patient started sneezing, stated she has light congestion. Shane Lepe in to see patient. Benadryl 50 mg IVP given. Per MAYR Summers ok to finish Vyepti. Toradol ordered [...] Patient d/c via wheelchair.. documented in this encounterParkwood Hospital08-20-2024 History of Present illness Narrative* Lamont Blair MD - 10/10/2023 10:04 AM EDTAssociated Problem(s): Mild persistent asthma with (acute) exacerbation ([facility]) Continued symptoms and treat with prednisone and bactrim. Use albuterol every 4 hours x 48 hours then PRN. Use OTC PRN cough or congestion. * Lamont Blair MD - 10/10/2023 10:04 AM EDTAssociated Problem(s): Acute bronchitis due to other specified organisms Continued symptoms and treat with prednisone and bactrim. Use albuterol every 4 hours x 48 hours then PRN. Use OTC PRN cough or congestion. * Lamont Blair MD - 10/10/2023 9:15 AM EDT Images from the original note were not included. Subjective Patient ID: Margaret Nicholson is a 27 y.o. female who presents for Follow-up (Clogged ears, hardto breathe). C/o cough, congestion, and rhinorrhea x [...] augmentin. To urgent care 10/07 and given doxyand prednisone. Covid negative. Using albuterol PRN with [...] Visit Mild persistent asthma with (acute) exacerbation ([facility]) Continued symptoms and treat with prednisone [...] 800-160 MG per tablet documented in this encounterSaint [facility]–Barry RoadYckctzlwxc04-14-0113 History of Present illness Narrative* Sagar Barth APRN.NURSE'S AIDES TEACHER - 09/19/2023 2:30 PM EDT Images from the original note [...] XL, Qudexy) Anti-Depressant and Antipsychotic Amitriptyline (Elavil) [place] (Eskalith, Lithobid) Nortriptyline (Pamelor, Aventyl) Anti-Migraine Dihydroergotamine [...] ZOLMitriptan (ZOMIG) 5 mg nasal spray^Use 1 [place] in the nose as needed at onset [...] these with the patient: yes Sagar Barth APRN.NURSE'S AIDES TEACHER HEADACHE SCORES: 03/22/2023 07/10/2023 09/19/2023 Headache Questions [...] spontaneous and fluent without dysarthria. Short and termite control technician memory, cognition and general fund of knowledgeare good. Attention span and concentration are excellent. Cranial Nerves: II-Visual duarte are full. III, IV, -EOMI, VII-face is symmetric without evidenceof weakness. VIII-hearing grossly intact. XII-No atrophy or [...] Migraine without aura, without mention of intractable migrainewithout mention of status migrainosus which occurs at [...] XL, Qudexy) Anti-Depressant and Antipsychotic Amitriptyline (Elavil) [place] (Eskalith, Lithobid) Nortriptyline (Pamelor, Aventyl) Blood Pressure [...] which included preparing to see the patient, [id number] patient care, completing clinical documentation, obtaining and/or reviewing separately obtained history, counseling and educating the patient/family/caregiver, ordering medications, tests, or procedures, and care coordination (not separately reported). Sagar Barth APRN.[facility] Headache [facility] September 19, 2023 documented in this encounterParkwood Hospital06-28-2024 Instructions* Patient Instructions* Curtis Lepe PA-C - 08/18/2023 2:39 PM EDT You received a greater occipital nerve block (GONB) today You may feel sore tomorrow at the site of the injection. You may use heat or ice for discomfort andgentle stretching. This should resolve in 24-36 hours. Greater Occipital Nerve Block (GONB) Article in [place] [employer] Journal By: Molina Barraza MD [...] not especially painful, but infusion of the solutionmay cause temporary discomfort. Pain relief can occur with startling rapidity, frequently within 15 minutes of the block(s). For those who experience relief, the duration of the therapeutic response varies widely: a day or so up toweeks... even months. When the procedure is performed [...] procedure usually is performed in a regular examinationroom and does not require any preparation on [...] whether a given ONB will be effective or--ifeffective--how long the benefit will last. If your treatment response is dramatically positive but short-lived, it probably makes sense to give it at least one more try. https://americanheadachesociety.org/wp-content/uploads//Dzdvynued-Swqir-T locks_Jun-2009.pdf documented in this encounterParkwood Hospital06-28-2024 History of Present illness Narrative* Curtis Lepe PA-C - 08/18/2023 9:30 AM EDT Images from the original [...] were injected into the right and left greaterOccipital Nerve(s). 0cc were wasted. The occipital nerve(s) was injected 3cm caudal and 1.5 cm lateral to the inion where the main trunkof the occipital nerve penetrates the semispinalis muscle. The needle was placed perpendicular and the needle advanced 1.5 cm. After aspiration to ensure no obstruction or presence of blood, the areawas injected. The needle was repositioned in a [...] 1 month Curtis Lepe PA-C Headache [facility] August 18, 2023 documented in this encounterParkwood Hospital06-26-2024 Telephone encounter Note * Telephone Encounter - Michelle Givens RN - 08/16/2023 9:18 AM EDT Forwarded to provider for review. PAPO: 07/10/2023 Future OV: 09/19/2023 Encounter from [facility] today 08/16/2023 [facility] Miscellaneous Notes* Telephone Encounter - Michelle Givens RN - 08/16/2023 9:18 AM EDT Forwarded to provider for review. PAPO: 07/10/2023 Future OV: 09/19/2023 Encounter from [facility] today 08/16/2023 documented in this encounterParkwood Hospital05-20-2024 History of Present illness Narrative* Sagar Barth APRN.NURSE'S AIDES TEACHER - 07/10/2023 11:30 AM EDT Images from the original note [...] visit. Either the patient or their legal kiosk sales representative has been informed of the [...] XL, Qudexy) Anti-Depressant and Antipsychotic Amitriptyline (Elavil) [place] (Eskalith, Lithobid) Nortriptyline (Pamelor, Aventyl) Anti-Migraine Dihydroergotamine [...] ZOLMitriptan (ZOMIG) 5 mg nasal spray^Use 1 [place] in the nose as needed at onset [...] these with the patient: yes Sagar Barth APRN.NURSE'S AIDES TEACHER HEADACHE SCORES: 12/12/2022 03/22/2023 07/10/2023 Headache Questions [...] Lymph 1.00 - 4.00 k/uL 0.84 Abs Acadia <0.87 k/uL 0.06 Abs Eosin <0.46 k/uL [...] spontaneous and fluent without dysarthria. Short and termite control technician memory, cognition and general fund of knowledgeare [...] XL, Qudexy) Anti-Depressant and Antipsychotic Amitriptyline (Elavil) [place] (Eskalith, Lithobid) Nortriptyline (Pamelor, Aventyl) Blood Pressure [...] (ZOMIG) 5 mg nasal spray Use 1 [place] in the nose as needed at onset [...] Service: Virtual Visit 40 minutes Sagar Barth APRN.NURSE'S AIDES TEACHER Headache [facility] July 10, 2023 documented in this encounterParkwood Hospital05-06-2024 Telephone encounter Note * Telephone Encounter - Kings Saez RN - 06/26/2023 3:00 PM EDT Called Pt to clarify ER visit. States she was seen this morning at [facility] and given a Compazine and steroid shot States she cannot remember the name of steroid that was given. Informationpassed on to care team. Marc TOMAS RN Clinical Developer Relations Manager [facility]05-06-2024 Miscellaneous Notes* Telephone Encounter - Kings Saez RN - 06/26/2023 3:00 PM EDT Called Pt to clarify ER visit. States she was seen this morning at [facility] and given a Compazine and steroid shot States she cannot remember the name of steroid that was given. Informationpassed on to care team. Marc TOMAS RN Clinical Developer Relations Manager [facility] documented in this encounterParkwood Hospital05-06-2024 Telephone encounter Note * Telephone Encounter - Michelle Givens RN - 06/26/2023 11:42 AM EDT Forwarded to provider for review. PAPO: 04/14/2023 with Suzan Ivey APRN.NURSE'S AIDES TEACHER Future OV: None scheduled [facility] Miscellaneous Notes* Telephone Encounter - Michelle Givens RN - 06/26/2023 11:42 AM EDT Forwarded to provider for review. PAPO: 04/14/2023 with Suzan Ivey APRN.NURSE'S AIDES TEACHER Future OV: None scheduled * Telephone Encounter - Michelle Givens RN - 06/26/2023 10:01 AM EDT MyChart message sent to patient to gain more information in regards to patient's migraine. documented in this encounterParkwood Hospital05-06-2024 Telephone encounter Note * Telephone Encounter - Michelle Givens RN - 06/26/2023 10:01 AM EDT MyChart message sent to patient to gain more information in regards to patient's migraine. [facility] Instructions* Patient Instructions* Suzan Ivey APRN.NURSE'S AIDES TEACHER - 04/14/2023 10:49 AM EST Follow up/ discharge plan: f/u in 3 months Start aimovig this weekend Aimovig Information Aimovig is a CGRP monoclonal antibody (MAB). CGRP is a substance in the brain that plays a chong rolein causing migraine. Aimovig was specifically developed to [...] required in order for the prior authorization t o be renewed. If this med is approved, please ask your insurance or pharmacy the prior authorization expiration date and make sure you have an appointment with us at least 3-4 weeks before it expiresso that you are able to get your medication refilled without delays. 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 Short and termite control technician memory, cognition and general fund of [...] which included preparing to see the patient, [id number] patient care, completing clinical documentation, obtaining and/or reviewing separately obtained history, performing a medically appropriate examination, counseling and educating the patient/family/caregiver, and ordering medications, tests, or procedures. Suzan Ivey APRN.NURSE'S AIDES TEACHER Headache [facility] documented in this encounterParkwood Hospital02-23-2024 History of Present illness Narrative* Vielka Nair RN - 04/14/2023 8:19 AM EST Pt in for 3rd day of infusion. Pt rated headache 6/10. Pt has severe nausea and moderate dizziness.Educated pt on medications to be administered. Pt agreed to proceed as ordered. Patient has spotter driver today. @0915: Patient tearful and c/o PIV site burning and very painful. No infiltration or redness of site noted, Ice-pack placed over PIV site. After a few minutes pt reported the ice-pack did not help and wanted PIV to be removed. PIV site removed. Patient remained very anxious and tearful, and requesting if anything else can be given for anxiety. [facility] RADIOLOGIC TECHNOLOGIST MAMMOGRAM notified. New PIV site started, 2nd doseof Benadryl given for anxiety. 2nd line: Compazine given for severe nausea. Per [facility] RADIOLOGIC TECHNOLOGIST MAMMOGRAM to hold Periactin today as the two doses of Benadryl and Compazine can cause drowsiness. Pts infusion complete, tolerated infusion. Headache 4/10. Pt stated no nausea and moderate dizziness. PIV site removed. Pt discharged from txt room at 1124 via wheelchair to ride in [place]. documented in this [facility] History of Present illness Narrative* Getachew Domingo RN - 04/13/2023 9:39 AM EST Pt in for second day of infusion. [...] She is working with a psychiatrist in [place] . Voiced stress isher biggest trigger for headaches. 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 I mentioned to patient our reboot program . Patient very interested to learn about it. Message sendto our power lineman and Rhina Lim to set up patient for evaluation. 1020 Patient sleeping on and off. Nausea subsiding. Patient declined Zofran. Stated Zofran ineffective. 1050 Infusion complete. Patient slept on and off. Nausea resolved. PINEDA 6/10. Patient verbal , appears sedated . D/c via wheel chair to her in [place]. documented in this encounterParkwood Hospital02-22-2024 Miscellaneous Notes* Telephone Encounter - Getachew Domingo RN - 04/13/2023 9:28 AM EST Patient is currently receiving infusions for headache. She is interested in learning about reboot program. Please schedule for evaluation. 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 Attention span and concentration are good. Cranial Nerves: VII-face is symmetric without evidence of weakness. VIII-hearing intact. Assessment: Intractable chronic migraine without aura and with status migrainosus (primary encounter diagnosis) Pt requesting depakote, but it's listed as an allergy. RN removed it b/c pt denies it's an allergy.Pt takes lamictal and cannot receive depakote d/t interaction. Plan: April Nicholson is a 27 year old year old female, following up today for day 1 of infusions. proceed with non-dhe infusions Level of service: Est level 3 (20-29 min). Time spent 25 min on the day of service, which included preparing to see the patient, hqzu-js-mhmw patient care, completing clinical documentation, obtaining and/or reviewing separately obtained history, performing a medically appropriate examination, counseling and educating the patient/family/caregiver, and ordering medications, tests, or procedures. Suzan Ivey APRN.FADY Headache [facility] documented in this encounterParkwood Hospital02-21-[facility] History of Present illness Narrative* Suzan Brito RN - 04/12/2023 11:54 AM EST 1105 Patient in for first day of IV infusions. Patient rated headache 8/10. Patient stated severe nausea and mild dizziness. Patient educated on medications to be administered. Patient verbalized understanding and agreed to proceed with infusions. Patient requested the PRN IV Benadryl vs oral periactin for sedation. Rhina Ivey RADIOLOGIC TECHNOLOGIST MAMMOGRAM updated and agreeable. PIV started on 3rd [...] dizziness. Pt discharged from treatment room with spotter driver via wheelchair due to effects from oral medications. documented in this encounterParkwood Hospital02-21-2024 Instructions* Patient Instructions* Suzan Ivey APRN.CNP - 04/12/2023 11:52 AM EST General Headache [...] into a normally lit room hurts. Consider FL- 41 tint lenses, which reduce the most irritating wavelengths without blocking too muchlight. These can be obtained at [employer] or [employer]: see list below. 2. Limit use of acute treatments (zqqh-dmb-whuqytf medications, triptans, etc.) to no more than [...] and quiet environment. Relax and reduce stress. Xyytewc7Cbneh is a free juan a that can instruct you on some simple relaxtionand breathing techniques. Http://[employer] is a free website that provides teaching [...] the need for medications. Counseling for pain ma nagement, where patients learn to function and ignore/minimize their pain, seems to work very well. 9. Recommend changing family's attention and focus away from patient's headaches. Instead, emphasize daily activities. If first question of day is 'How are your headaches/Do you have a headache today?', then patient will constantly think about headaches, thus making them worse. Goal is to re-directattention away from headaches, toward daily activities and other distractions. 10. Helpful Websites: www.AmericanHeadacheSociety.org www.migrainetrust.org www.headaches.org www.migraine.org.uk www.achenet.org 11. HEADACHE EXPECTATIONS: There are many types of headaches, and only a rare few in which complete relief can be expected. Ingeneral, there is no cure for headache, especially [...] how many medications or other treatments we try.Our treatment strategy is to evaluate for possible causes of your headache, although testing is usually always normal, even in cases of daily continuous headaches for years. Most types of headache such as migraine are electrical brain disorders (similar to how epilepsy is an electrical brain disorders). Therefore, there is no testing that will reveal this dysfunctional electrical circuitry suchon MRI, or other testing. We try to [...] We can not predict if or when exac tly you will respond to a treatment that we provide. Preventive headache medications take 4-6 weeks to start working, and 2-3 months to see full effect,assuming you reach an effective dose. Therefore, calling or messaging frequently because you have aheadache flare prior to the 3 month genaro is unlikely to change anything, and unfortunately there isnothing available that will expedite this, so please try to avoid this. Our recommendation will gene rally be to give it adequate time first. [...] ensuing treatment plans will be released via People to Remember and discussedduring your follow-up appointment. Follow-up appointments are primarily provided by the Nurse Practitioners and Physician s Assistants in order to provide timely, accessible care. [employer]: Please ask the schedulers to give you an activation code. The main way of communication isby [employer] rather than phone lines, so if you have not signed up, please do so. People to Remember is also theway that you can review your labs and testing. We are not able to contact everyone to tell them results are normal. If you do not hear back from us regarding testing you have had, it should be considered normal or within normal range. If you have any questions about the results, you are free to message us. People to Remember is meant for simple questions regarding medications, possible side effects, or other simplestraight forward questions in limited sentences, rather than multiple paragraphs of discussion. People to Remember is not meant for, or efficient for these complex questions, extensive questions, extensive medication adjustments, complex new symptoms or concerns. These issues beyond simple questions require afollow up visit with myself, one of our physician assistants, nurse practitioners, or a Virtual Visit via computer or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 with and withoutcontrast that was normal. You also underwent video EEG monitoring. You had several episodes of convulsions while undergoing monitoring that did not correlate with epileptic seizures. You have been diagnosed with psychogenic nonepileptic seizures. Recommend continuing Lamictal 50mg QD that was started by your Psychiatrist. You do not need any anti-seizure medications at this time. Recommend seeingyour Psychiatrist for further medical management of your anxiety and depression. Recommend seeing aPsychologist for behavioral therapy and stress management. Reduce stress as possible. Follow up with your Neurologist for further management. Avoid driving or other activities that could be dangerousif you are feeling very stressed or have a migraine. Call 911 if you feel there is an emergency situation. * Attachments The following attachments cannot be sent through Care Everywhere. * Non-Epileptic Seizure: General Info (Indonesian) documented in this encounterBON Exakis Work Phone: 1(639) 588-409008-31-2022 History of Present illness Narrative* UMANG Garcia CNP - 10/20/2021 6:49 AM EDT Images from the original note [...] a history of migraine headaches, anxiety, depression, seizuresand recent total hysterectomy who presented as a transfer from [facility] for seizure like episodes. Per records, patient's boyfriend called EMS this morning as patient had multiple episodes of seizure like episodes. On EMS arrival, patient was laying in bed with violent 5 second full body tremors/convulsion like activity . Significant other had reported patient had 3 other episodes prior to their arrival. Per records, patient had another similar episode en route to outlying ED. On arrival [facility] ED, GCS 12. Per documentation, patient had at least 13 seizure like episodes, lasting 10-60 seconds, described as grand mal. She was given 10mg Valium IV, 1g Keppra IV, 720mg Phenobarbital IV. CT Head without contrast unremarkable. Labs unremarkable including normal TSH, lactic, negative UA. Transferred to [facility] Neuro ICU for further management. Per [...] She also reports patient started having seizures about1 year ago. She states they are typically preceded by a stressful event or headache. Describes patient's typical seizure activity as absent spells but reports she sometimes has a little shaking . Mom also reports patient stated she was diagnosed with brain mass recently (last 6 months) at [facility] andis supposed to have a brain biopsy in November 2021. Patient recently saw Dr. Vicky De Dios ([facility]) on 08/06/21 for migraines and seizures. There was no mention of brain mass in this documentation. She was referred to Dr. Muse for an occipital nerve block, started on Baclofen. She wasinstructed to get an EEG and MRI Brain [...] states patient does not drink alcohol, use recreationaldrugs or smoke. On arrival to the Neuro ICU, Adrienne (PATIENT ADMITTING CLERK) witnessed two brief (~10 seconds) episodes of generalized full body shaking. Episodes resolved without intervention. Patient examined shortly after thesecond episode. She opens her eyes with noxious stimuli. After a lot of encouragement, she weakly raised her arms and wiggled her toes. She will not answer simple orientation questions but when askedabout pain she states her head, neck and belly hurt. States she fell a couple of days ago. She alsowas able to tell us that she has [...] full body shaking overnight lasting <60 seconds eachtime. LTME with no epileptiform discharges. This morning, [...] sodium chloride, ondansetron OR ondansetron, polyethylene glycol, sodiumchloride flush, acetaminophen OR acetaminophen VITALS: Temperature Range: Temp: 98.5 F (36.9 C) Temp Av.7 F (37.1 C) Min: 98.3 F (36.8 C) Max: 98.9 F(37.2 C) BP Range: Systolic (24hrs), Av , [...] hysterectomy who presented as a transfer from [facility] for seizure like episodes. NEUROLOGIC: - [...] UMANG Garcia CNP Neuro Critical Care Pager [phone] 10/20/2021 6:49 AM * Juan Francisco Peterson - 10/19/2021 2:09 PM EDT ALTM is running. Pt has MRI/ CT compatible electrodes * Marychuy Barth RCP - 10/19/2021 1:17 PM EDT Per patient mom, she is alert and oriented normally, but she is sedated at this point due to havingmultiple seizures. PT has a history of asthma and take ventolin 2 puffs PRN and nebulized albuterolPRN. She does not wear O2 at home, however, she currently on 1 liter saturating at 100%. documented in this encounterBON COMM[facility]ze[facility] Work Phone: [phone] 313-531908-12-2022 NoteDISCHARGE SUMMARY DISCHARGE DATE: 10/02/2021 PRIMARY DIAGNOSES: 1. [...] when pain free and no longer on narcotics.[facility]08-12-2022 NoteOPERATIVE NOTE OPERATION DATE: 10/01/2021 PROCEDURE: Total abdominal hysterectomy with partial bilateral salpingectomy with cystoscopy. PREOPERATIVE DIAGNOSIS: Menorrhagia, dysmenorrhea, dyspareunia, pelvic pain. POSTOPERATIVE DIAGNOSIS: Menorrhagia, dysmenorrhea, dyspareunia, pelvic pain. ANESTHESIA: General. SURGEON: Zay Blas D.O. POACHER OPERATOR: VERNA Yap URINE OUTPUT: Yellow and [...] with good visualization of the bladder. An Janice- O-William retractor was placed into the patient's [...] to the Recovery Room in stable condition. ??[facility] [id number] NotePROCEDURE: US PELVIS TRANSVAG, 08/14/2021 9:01 AM EDT [...] Electronically authenticated by: NICOLE MEDELLIN Date: 2021-08-14 10:19[facility]11-04-[facility] Hospital Discharge instructions* Instructions* Keven Ching DO - 12/24/2020 Continue all home medications as prescribed. Follow up with your family doctor and neurologist. Return to the emergency department for new, worsening or worrisome symptoms. documented in this encounterGiant Interactive Group Phone: evaluation note* Diagnosis Migraine without status migrainosus, not intractable, unspecified migraine type- Primary documented in this encounter [employer] Phone: evaluation note* Diagnosis Seizure-like activity (HCC)- Primary Other convulsions Seizure disorder (HCC) Unspecified epilepsy without mention of intractable epilepsy Psychogenic nonepileptic seizure documented in this encounter [facility] [employer] Phone: evaluation note* Diagnosis Seizure-like activity (HCC)- Primary Other convulsions [facility] Diagnosis Psychogenic nonepileptic seizure- Primary Spells of trembling Abnormal involuntary movements Chronic intractable headache, unspecified headache type documented [facility]* Diagnosis Seizure-like activity (HCC)- Primary Other convulsions Psychogenic nonepileptic seizure [facility]* Diagnosis Seizure-like activity (HCC)- Primary Other convulsions [facility]* Diagnosis Chronic migraine w/o aura, not intractable, w/o stat migr- Primary documented in [facility]* Diagnosis Intractable chronic migraine without aura and with status migrainosus- Primary Chronic migraine without aura, with intractable migraine, so stated, with status migrainosus [facility]* Diagnosis Intractable chronic migraine without aura and with status migrainosus- Primary Chronic migraine without aura, with intractable migraine, so stated, with status migrainosus documented [facility] this encounter [facility]* Diagnosis Chronic migraine w/o [...] with status migrainosus [facility]* Diagnosis Chronic migraine w/o aura, not intractable, w/o stat migr Cervicalgia Migraine without aura and without status migrainosus, not intractable Migraine without aura, without mention of intractable migraine without mention of status migrainosus documented [facility]* Diagnosis Intractable chronic migraine [...] of status migrainosus [facility]* Diagnosis Intractable chronic migraine without aura and without status migrainosus- Primary Chronic migraine without aura, with intractable migraine, so stated, without mention of status migrainosus documented [facility] this encounter [facility]* Diagnosis Intractable chronic migraine without aura and without status migrainosus- Primary Chronic migraine without aura, with intractable migraine, so stated, without mention of status migrainosus documented in this encounter [facility]* Diagnosis Acute right [...] (CMS/HCC) Pain, dental [facility]* Diagnosis Chronic migraine without aura, with intractable migraine, so stated, with status migrainosus- Primary Intractable chronic migraine without aura and with status migrainosus Chronic migraine without aura, with intractable migraine, so stated, with status migrainosus [facility]* Diagnosis Chronic migraine without aura, with intractable migraine, so stated, with status migrainosus- Primary Intractable chronic migraine without aura and with status migrainosus Chronic migraine without aura, with intractable migraine, so stated, with status migrainosus documented in this encounter [facility]* Diagnosis Acute right flank pain- Primary Mild persistent asthma without complication (CMS/HCC) Morbid obesity (CMS/HCC) Morbid obesity Body mass index [BMI] 45.0-49.9, adult (Z68.42) Acute bronchitis due to other specified organisms- Primary Mild persistent asthma with (acute) exacerbation ([facility]) Acute bronchitis due to other specified organisms- Primary Mixed bipolar I disorder ([facility]) Bipolar I disorder, most recent episode (or current) mixed, unspecified Mild persistent asthma without complication ([facility])- Primary Class 3 severe obesity due to excess calories without serious comorbidity with body mass index (BMI) of 50.0 to 59.9 in adult ([facility]) Fatigue, unspecified type Mixed bipolar I disorder ([facility]) Bipolar I disorder, most recent episode (or current) mixed, unspecified Chronic migraine without aura without status migrainosus, not intractable ([facility]) Pain, dental Pain, dental documented in this encounter [facility]* Diagnosis Chronic migraine without aura, with intractable migraine, so stated, with status migrainosus- Primary documented in this encounter [facility]* Diagnosis Chronic migraine without aura, with intractable migraine, so stated, with status migrainosus- Primary Intractable chronic migraine without aura and with status migrainosus Chronic migraine without aura, with intractable migraine, so stated, with status migrainosus documented in this encounter [facility]* Diagnosis Acute right flank pain- Primary Mild persistent asthma without complication ([facility]) Morbid obesity ([facility]) Morbid obesity Body mass index [BMI] 45.0-49.9, adult (Z68.42) Acute bronchitis due to other specified organisms- Primary Mild persistent asthma with (acute) exacerbation ([facility]) Acute bronchitis due to other specified organisms- Primary Mixed bipolar I disorder ([facility]) Bipolar I disorder, most recent episode (or current) mixed, unspecified Mild persistent asthma without complication ([facility])- Primary Class 3 severe obesity due to excess calories without serious comorbidity with body mass index (BMI) of 50.0 to 59.9 in adult ([facility]) Fatigue, unspecified type Mixed bipolar I disorder ([facility]) Bipolar I disorder, most recent episode (or current) mixed, unspecified Chronic migraine without aura without status migrainosus, not intractable ([facility]) Pain, dental Mild persistent asthma with (acute) exacerbation ([facility])- Primary Generalized edema Edema SOB (shortness of breath) on exertion Shortness of breath [facility]* Diagnosis Acute right flank pain- Primary Mild persistent asthma without complication ([facility]) Morbid obesity ([facility]) Morbid obesity Body mass index [BMI] 45.0-49.9, adult (Z68.42) Acute bronchitis due to other specified organisms- Primary Mild persistent asthma with (acute) exacerbation ([facility]) Acute bronchitis due to other specified organisms- Primary Mixed bipolar I disorder ([facility]) Bipolar I disorder, most recent episode (or current) mixed, unspecified Mild persistent asthma without complication ([facility])- Primary Class 3 severe obesity due to excess calories without serious comorbidity with body mass index (BMI) of 50.0 to 59.9 in adult ([facility]) Fatigue, unspecified type Mixed bipolar I disorder ([facility]) Bipolar I disorder, most recent episode (or current) mixed, unspecified Chronic migraine without aura without status migrainosus, not intractable ([facility]) Pain, dental Mild persistent asthma with (acute) exacerbation ([facility])- Primary Generalized edema Edema SOB (shortness of breath) on exertion Shortness of breath COVID-19 [facility]* Diagnosis Severe persistent asthma without complication ([facility]) [facility]* Diagnosis Acute bronchitis due to other specified organisms- Primary Mild persistent asthma with (acute) exacerbation ([facility]) [facility] Diagnosis Acute bronchitis due to other specified organisms- Primary Mixed bipolar I disorder ([facility]) Bipolar I disorder, most recent episode (or current) mixed, unspecified [facility]* Diagnosis Acute right flank pain- Primary Mild persistent asthma without complication ([facility]) Morbid obesity ([facility]) Morbid obesity Body mass index [BMI] 45.0-49.9, adult (Z68.42) Acute bronchitis due to other specified organisms- Primary Mild persistent asthma with (acute) exacerbation ([facility]) Acute bronchitis due to other specified organisms- Primary Mixed bipolar I disorder ([facility]) Bipolar I disorder, most recent episode (or current) mixed, unspecified Mild persistent asthma without complication ([facility])- Primary Class 3 severe obesity due to excess calories without serious comorbidity with body mass index (BMI) of 50.0 to 59.9 in adult ([facility]) Fatigue, unspecified type Mixed bipolar I disorder ([facility]) Bipolar I disorder, most recent episode (or current) mixed, unspecified Chronic migraine without aura without status migrainosus, not intractable ([facility]) Pain, dental Mild persistent asthma with (acute) exacerbation ([facility])- Primary Generalized edema Edema SOB (shortness of breath) on exertion Shortness of breath Generalized abdominal pain- Primary Abdominal pain, generalized Intractable nausea and vomiting Mild persistent asthma with (acute) exacerbation ([facility]) documented in this encounter [facility]* Diagnosis Acute right flank pain- Primary Mild persistent asthma without complication ([facility]) Morbid obesity ([facility]) Morbid obesity Body mass index [BMI] 45.0-49.9, adult (Z68.42) Acute bronchitis due to other specified organisms- Primary Mild persistent asthma with (acute) exacerbation ([facility]) Acute bronchitis due to other specified organisms- Primary Mixed bipolar I disorder ([facility]) Bipolar I disorder, most recent episode (or current) mixed, unspecified Mild persistent asthma without complication ([facility])- Primary Class 3 severe obesity due to excess calories without serious comorbidity with body mass index (BMI) of 50.0 to 59.9 in adult ([facility]) Fatigue, unspecified type Mixed bipolar I disorder ([facility]) Bipolar I disorder, most recent episode (or current) mixed, unspecified Chronic migraine without aura without status migrainosus, not intractable ([facility]) Pain, dental Mild persistent asthma with (acute) exacerbation ([facility])- Primary Generalized edema Edema SOB (shortness of breath) on exertion Shortness of breath Generalized abdominal pain- Primary Abdominal pain, generalized Intractable nausea and vomiting Mild persistent asthma with (acute) exacerbation ([facility]) Pelvic pain in female Unspecified symptom associated with female genital organs Complex ovarian cyst [facility]* Diagnosis Acute right flank pain- Primary Mild persistent asthma without complication ([facility]/H[facility]) Morbid obesity ([facility]) Morbid obesity Body mass index [BMI] 45.0-49.9, adult (Z68.42) Acute bronchitis due to other specified organisms- Primary Mild persistent asthma with (acute) exacerbation ([facility]) Acute bronchitis due to other specified organisms- Primary Mixed bipolar I disorder ([facility]) Bipolar I disorder, most recent episode (or current) mixed, unspecified Mild persistent asthma without complication ([facility])- Primary Class 3 severe obesity due to excess calories without serious comorbidity with body mass index (BMI) of 50.0 to 59.9 in adult ([facility]) Fatigue, unspecified type Mixed bipolar I disorder ([facility]) Bipolar I disorder, most recent episode (or current) mixed, unspecified Chronic migraine without aura without status migrainosus, not intractable ([facility]) Pain, dental Mild persistent asthma with (acute) exacerbation ([facility])- Primary Generalized edema Edema SOB (shortness of breath) on exertion Shortness of breath Generalized abdominal pain- Primary Abdominal pain, generalized Intractable nausea and vomiting Mild persistent asthma with (acute) exacerbation ([facility]) Cyst of right ovary Other and unspecified ovarian cyst Pelvic pain in female Unspecified symptom associated with female genital organs Pelvic peritoneal adhesions, female Pelvic peritoneal adhesions, female (postoperative) (postinfection) [facility] Diagnosis Bilateral ovarian cysts- Primary Other and unspecified ovarian cyst Preop testing Unspecified pre-operative examination [facility] Diagnosis Bilateral ovarian cysts- Primary Other and unspecified ovarian cyst Moderate asthma with acute exacerbation, unspecified whether persistent Encounter for preoperative pulmonary examination [facility] Acute cough [R05.1]- Primary [facility]* Diagnosis Intractable chronic migraine without aura and without status migrainosus- Primary Chronic migraine without aura, with intractable migraine, so stated, without mention of status migrainosus [facility] Asthma, unspecified asthma severity, unspecified whether complicated, unspecified whether persistent- Primary Bilateral ovarian cysts Other and unspecified ovarian cyst Moderate asthma with acute exacerbation, unspecified whether persistent Encounter for preoperative pulmonary examination Pulmonary nodule Other diseases of lung, not elsewhere classified Gastroesophageal reflux disease, unspecified whether esophagitis present [facility] Diagnosis Cyst of right ovary- Primary Other and unspecified ovarian cyst [facility] Diagnosis Preop testing- Primary Unspecified pre-operative examination Bilateral ovarian cysts Other and unspecified ovarian cyst [facility] Diagnosis S/P bilateral salpingo-oophorectomy Acquired absence of organ, genital organs [facility] Diagnosis Post-op pain- Primary Other acute postoperative pain [facility] Diagnosis Acute right flank pain- Primary Mild persistent asthma without complication (CMS/HCC) Morbid obesity ([facility]/HCC) Morbid obesity Body mass index [BMI] 45.0-49.9, [...] (BMI) of 50.0 to 59.9 in adult ([facility]) Fatigue, unspecified type Mixed bipolar I disorder ([facility]) Bipolar I disorder, most recent episode (or current) mixed, unspecified Chronic migraine without aura without status migrainosus, not intractable ([facility]) Pain, dental Mild persistent asthma with (acute) exacerbation ([facility]/HCC)- Primary Generalized edema Edema SOB (shortness of breath) on exertion Shortness of breath Generalized abdominal pain- Primary Abdominal pain, generalized Intractable nausea and vomiting Mild persistent asthma with (acute) exacerbation ([facility]/HCC) Visit for wound check Yeast infection [facility] Diagnosis Abdominal wall cellulitis- Primary Postoperative surgical complication involving genitourinary system associated with genitourinary procedure, unspecified complication Postoperative surgical complication involving genitourinary system associated with genitourinary procedure [facility] Diagnosis Acute right flank pain- Primary Mild persistent asthma without complication (CMS/HCC) Morbid obesity ([facility]) Morbid obesity Body mass index [BMI] 45.0-49.9, adult (Z68.42) Acute bronchitis due to other specified organisms- Primary Mild persistent asthma with (acute) exacerbation (CMS/HCC) Acute bronchitis due to other specified organisms- Primary Mixed bipolar I disorder (CMS/HCC) Bipolar I disorder, most recent episode (or current) mixed, unspecified Mild persistent asthma without complication ([facility])- Primary Class 3 severe obesity due to excess calories without serious comorbidity with body mass index (BMI) of 50.0 to 59.9 in adult ([facility]) Fatigue, unspecified type Mixed bipolar I disorder ([facility]) Bipolar I disorder, most recent episode (or current) mixed, unspecified Chronic migraine without aura without status migrainosus, not intractable ([facility]) Pain, dental Mild persistent asthma with (acute) exacerbation ([facility])- Primary Generalized edema Edema SOB (shortness of breath) on exertion Shortness of breath Generalized abdominal pain- Primary Abdominal pain, generalized Intractable nausea and vomiting Mild persistent asthma with (acute) exacerbation ([facility]) Well woman exam with routine gynecological exam Routine gynecological examination [facility] Diagnosis Postoperative surgical complication involving genitourinary system associated with genitourinary procedure, unspecified complication- Primary Post-op pain Other acute postoperative pain Sweating profusely Generalized hyperhidrosis Menopausal symptoms Symptomatic menopausal or female climacteric states Nausea and vomiting, unspecified vomiting type [facility] Diagnosis Post-operative pain- Primary Other acute postoperative pain [facility]* Diagnosis Muscle spasm- Primary Spasm of muscle Fatigue due to depression Nausea and vomiting, unspecified vomiting type Mild persistent asthma without status asthmaticus without complication Psychogenic nonepileptic seizure [facility]* Diagnosis Postoperative surgical complication involving genitourinary system associated with genitourinary procedure, unspecified complication [facility]* Diagnosis Postoperative surgical complication involving genitourinary system associated with genitourinary procedure, unspecified complication [facility]* Diagnosis Moderate persistent asthma, unspecified whether complicated [facility]* Diagnosis Postoperative infection, unspecified type, subsequent encounter- Primary [facility]* Diagnosis Chronic migraine without aura, [...] of status migrainosus [facility] Diagnosis Intractable chronic migraine without aura and with status migrainosus- Primary Chronic migraine without aura, with intractable migraine, so stated, with status migrainosus Nausea Nausea alone Generalized anxiety disorder documented in this encounter [facility]* Diagnosis S/P bilateral salpingo-oophorectomy- Primary Acquired absence of organ, genital organs Menopausal symptoms Symptomatic menopausal or female climacteric states documented [facility]* Diagnosis Moderate persistent asthma with acute exacerbation- Primary Acute pansinusitis, recurrence not specified Antibiotic-induced yeast infection documented [facility]* Diagnosis Moderate persistent asthma, unspecified whether complicated [facility]* Diagnosis Intractable chronic migraine without aura and without status migrainosus Chronic migraine without aura, with intractable migraine, so stated, without mention of status migrainosus [facility] Diagnosis Weight loss- Primary Loss of weight Moderate persistent asthma with acute exacerbation Seasonal allergic rhinitis, unspecified trigger [facility]* Diagnosis Seasonal allergic rhinitis, unspecified trigger [facility]* Diagnosis Family history of genetic disorder- Primary Family history of other condition [facility] Diagnosis Acute right flank pain- Primary [...] Dyspareunia in female [facility] Diagnosis Status migrainosus- Primary Variants of [...] with status migrainosus [facility] Diagnosis Eye infection, bilateral- Primary Ingrown nail of great toe [facility]* Diagnosis Intractable chronic migraine without aura and without status migrainosus- Primary Chronic migraine without aura, with intractable migraine, so stated, without mention of status migrainosus [facility] Diagnosis Chronic migraine without aura, with intractable migraine, so stated, with status migrainosus- Primary Intractable chronic migraine without aura and with status migrainosus Chronic migraine without aura, with intractable migraine, so stated, with status migrainosus [facility] Diagnosis Intractable chronic migraine without aura and with status migrainosus- Primary Chronic migraine without aura, with intractable migraine, so stated, with status migrainosus Status migrainosus Variants of migraine, not elsewhere classified, without mention of intractable migraine without mention of status migrainosus [facility] Diagnosis Family history of genetic disorder- Primary Family history of other condition documented [facility] this encounter [facility]* Diagnosis Allergic reaction, sequela- Primary [facility]* Diagnosis Intractable chronic migraine without aura and without status migrainosus- Primary Chronic migraine without aura, with intractable migraine, so stated, without mention of status migrainosus [facility] Diagnosis Acute right flank pain- Primary Mild persistent asthma without complication (HCC) Morbid obesity ([facility]-H[facility]) Morbid obesity Body mass index [BMI] 45.0-49.9, [...] (BMI) of 50.0 to 59.9 in adult ([facility]) Fatigue, unspecified type Mixed bipolar I [...] vomiting Mild persistent asthma with (acute) exacerbation ([facility]) Hot flashes due to surgical menopause [facility] Diagnosis Moderate persistent asthma, unspecified whether complicated [facility]* Diagnosis Muscle spasm Spasm of muscle [facility]* Diagnosis Left otitis media, unspecified otitis media type- Primary Mild asthma with exacerbation, unspecified whether persistent [facility]* Diagnosis Moderate asthma with acute exacerbation, unspecified whether persistent [facility]* Diagnosis JUAN DAVID (obstructive sleep apnea)- Primary Obstructive sleep apnea (adult) (pediatric) documented in this [facility]* Diagnosis Moderate persistent asthma without complication- Primary Gastroesophageal reflux disease without esophagitis Esophageal reflux Environmental allergies Other allergy, other than to medicinal agents [facility]* Diagnosis Moderate persistent asthma without complication- Primary Watery eyes Epiphora, unspecified as to cause Seasonal allergic rhinitis, unspecified trigger [facility] [...] sent through Care Everywhere. * Ingrown toenail (Indonesian) documented in [facility] System[facility]ructionsNot on file documented in this encounter[facility] SystemInstructionsNot on file documented in this encounter[facility] SystemInstructionsNot on file documented in this encounterPro[facility] SystemInstructions* Attachments The following attachments cannot be sent through Care Everywhere. * Olopatadine (Ophthalmic) (Indonesian) documented in this encounterPro[facility] SystemReason for referral (narrative)* Outpatient Procedure (Routine) - Pending ReviewSpecialtyDiagnoses / ProceduresReferred By ContactReferred To [facility] Diagnoses Seizure-like activity (HCC) Procedures EPIL EEG LEAD PLACEMENT EEG EXTENDED MONITORING 61-119 MINUTES ELECTROENCEPHALOGRAM REC COMA/SLEEP ONLY Geri Madera APRN.N[employer]SE[employer]IDES TEACHER [address] [place] [address] [place] [address] Referral IDStatusMarlicrittenton behavioral healthStarion DateExpiration DateVisits RequestedVisits [id number] Review Auto-Generated Referral / [facility] for referral (narrative)* Outpatient Procedure (Routine) - Pending ReviewSpecialtyDiagnoses / ProceduresReferred By ContactReferred To [facility] Diagnoses Psychogenic nonepileptic seizure Spells of trembling Procedures EPIL AMBULATORY EEG EEG COMPLETE STD PHYS/QHP&GT;84 HR W/O Tyrone Diaz MD, PhD [id number] [place] [address] Referral IDStatusReasonStart DateExpiration DateVisits RequestedVisits [id number] Review Auto-Generated Referral * Outpatient Procedure (Routine) - Pending ReviewSpecialtyDiagnoses / Procedures Referred By ContactReferred To [facility] Diagnoses Psychogenic nonepileptic seizure Spells of trembling Procedures EPIL AMBULATORY EEG EEG COMPLETE STD PHYS/QHP&GT;84 HR W/O Tyrone Diaz MD, PhD [id number] [place] [address] Referral IDStatusReasonStart DateExpiration DateVisits RequestedVisits [id number] Review Auto-Generated Referral / * Consult, Test, Treat (Routine) - AuthorizedSpecialtyDiagnoses / Procedures Referred By ContactReferred To Contact Diagnoses Chronic intractable headache, unspecified headache type Procedures CONSULT TO HEADACHE CLINIC OFFICE/OUTPATIENT NEW HIGH MDM 60-74 MINUTES Tyrone Dolan MD, PhD [address] [place] [address] Referral IDStatusReasonStart DateExpiration DateVisits RequestedVisits [id number] PCP Requested Referral / [facility] for referral (narrative)* Outpatient Procedure (Routine) - Pending ReviewSpecialtyDiagnoses / ProceduresReferred By ContactReferred To [facility] Diagnoses Seizure-like activity (HCC) Procedures EPIL EEG ROUTINE ELECTROENCEPHALOGRAM REC COMA/SLEEP ONLY Nelly Saldaña PA-C [address] [place] [address] Neurological [facility] [place] [address] Referral IDStatusReasonStarion DateExpiration DateVisits RequestedVisits [id number] Review Auto-Generated Referral [facility] for referral (narrative)* Misc (Routine) - Pending Review SpecialtyDiagnoses / ProceduresReferred By ContactReferred To Contact Procedures Discharge Follow-Up George Michelle MD [address] [facility], [address] [place] [address] Phone: tel: fax: Referral IDStatusReasonStart DateExpiration DateVisits RequestedVisits [id number] Review * Misc (Routine) - Pending ReviewSpecialtyDiagnoses / ProceduresReferred By ContactReferred To Contact Procedures Hygiene George Michelle MD [address] [address] Phone: tel: fax: Referral IDStatusMarliasonStart DateExpiration DateVisits RequestedVisits [id number] Review [facility] Advance Directives TypeDate RecordedPatient RepresentativeExplanationACP-Advance DirectiveACP-Power of AttorneyCode StatusDate ActivatedDate InactivatedCommentsFull Code10/19/2021 12:27 PMFull Code10/19/2021 12:23 PM10/19/2021 12:27 PMDate ActivatedDate InactivatedComments03/28/2024 2:56 PM2 8:49 PMDate ActivatedDate InactivatedComments03/28/2024 2:56 03/28/2024 8:49 PM Summary Purpose Family History No Family History Records FoundNo Family History Records FoundNo Family History Records FoundNo Family History Records FoundNo Family History Records FoundNo Family History Records FoundNo Family History Records FoundNo Family History Records Found Medications Administered Section Medication OrderMAR ActionAction DateDoseRateSite diphenhydrAMINE 25 mg injection (BENADRYL) 25 mg, INTRAVENOUS, NEEDED, 2 doses, Starting on Meg 07/28/22 at 0741, Until Meg 07/28/22 at 1332, Sedation/Dystonia/Akathisia/Anxiety 3rd line Given07/28/2022 8:28 AM EDT25 mg keTORolac 30 mg injection [...] INSTEAD of the opioid, if preferred: N/A Given07/28/2022 8:26 AM EDT30 mg levETIRAcetam 500 mg injection (KEPPRA) 500 mg, INTRAVENOUS, ONCE, 1 dose, On Meg 07/28/22 at 0800, Administer IV push over 2-5 minutes. Given07/28/2022 8:23 AM RQK185 mg magnesium sulfate 1 g in D5W [...] Cardiac Step Down 5) Headache [facility] The followingcare areas may administer a magnesium sulfate bolus at a rate of GREATER than 2 grams/hr if necessary: 1) Adult and Pediatric Asthma Exacerbations 2) [place] 3) Pediatric BMT and Hematology/Oncology 4) Eclampsia or Preeclampsia New Bag/Syringe/Volebj0307/28/2022 9:08 AM EDT1 g100 mL/hr methocarbamol iv infusion 1,000 mg in NaCl 0.9% 100 mL (ROBAXIN) 1,000 mg, INTRAVENOUS, Administer over 30 Minutes, ONCE, 1 dose, On Meg 07/28/22 at 0800, Administer IV while in recumbent position. Maintain position for at least 10-15 minutes following infusion. New Bag/Syringe/Luhcup0107/28/2022 8:32 AM EDT1,000 mg promethazine 25 mg tab(s) (PHENERGAN) 25 mg, ORAL, EVERY 4 HOURS NEEDED, 2 doses, Starting on Meg 07/28/22 at 0741, Until Meg 6/8/23 at 1332, Nausea/Vomiting - First Line - Enteral Given07/28/2022 8:21 AM EDT25 mgMedication OrderMAR ActionAction DateDoseRate Site diphenhydrAMINE 25 mg injection (BENADRYL) 25 mg, INTRAVENOUS, NEEDED, 2 doses, Starting on Mon11/11/22 at 0823, Until Mon11/11/22 at 1326,Sedation/Dystonia/Akathisia/Anxiety 3rd line Given11/11/2022 8:39 AM EDT25 mg diphenhydrAMINE 50 mg injection (BENADRYL) 50 mg, INTRAVENOUS, NEEDED, 1 dose, Starting on Mon11/11/22 at 1025, Until Mon11/11/22 at 1028, Administer per hypersensitivity/anaphylaxis grading in nursing communication Given11/11/2022 10:28 AM EDT50 mg keTORolac 30 mg injection (Toradol) 30 [...] INSTEAD of the opioid, if preferred: N/A Given11/11/2022 8:42 AM EDT30 mg levETIRAcetam 500 mg injection (KEPPRA) 500 mg, INTRAVENOUS, ONCE, 1 dose, On Mon11/11/22 at 0830, Administer IV push over 2-5 minutes. Given11/11/2022 8:45 AM QJJ373 mg magnesium sulfate 1 g in D5W [...] and Hematology/Oncology 4) Eclampsia or Preeclampsia New Bag/Syringe/Qcxxxy9911/11/2022 9:21 AM EDT1 g100 mL/hr methocarbamol iv infusion 1,000 mg in NaCl 0.9% 100 mL (ROBAXIN) 1,000 mg, INTRAVENOUS, Administer over 30 Minutes, ONCE, 1 dose, On Mon11/11/22 at 0830, AdministerIV while in recumbent position. Maintain position for at least 10-15 minutes following infusion. New Bag/Syringe/Prbkcu5411/11/2022 8:50 AM EDT1,000 mg NaCl 0.9% 500 mL iv bolus 500 mL, INTRAVENOUS, at 999 mL/hr, Administer over 0.5 Hours, ONCE, 1 dose, On Mon11/11/22 at 0830 New Bag/Syringe/Ykwhhe3711/11/2022 8:40 AM RAA778 mL999 mL/hr ondansetron (PF) 8 mg injection (ZOFRAN) 8 mg, INTRAVENOUS, EVERY 1 HOUR NEEDED, 2 doses, Starting on Mon11/11/22 at 0823, Until Mon11/11/22 at 1326, Nausea/Vomiting - First Line - Parenteral Given11/11/2022 10:31 AM EDT8 mg promethazine 25 mg tab(s) (PHENERGAN) 25 mg, ORAL, NEEDED, 1 dose, Starting on Mon11/11/22 at 0823, Until Mon11/11/22 at 0839, Nausea/Vomiting - Second Line - Enteral Given11/11/2022 8:39 AM EDT25 mg Reason for Referral SpecialtyDiagnoses / ProceduresReferred By ContactReferred To Contact Jesse Borrego MD [address] [place] [address] Referral IDStatusReasonStart DateExpiration DateVisits RequestedVisits [id number] / ProceduresReferred By Contact Referred To Contact Diagnoses Intractable chronic migraine without aura and with status migrainosus Intractable chronic migraine without aura and without status migrainosus Procedures PROVIDER ORDERED FOLLOW UP OFFICE/OUTPATIENT NEW [facility] 60 MINUTES Suzan Ivey APRN.NURSE'[employer]IDES TEACHER [address] [id number] Referral IDStatusReasonStart DateExpiration DateVisits RequestedVisits [id number] PCP Requested Referral /[id number] / ProceduresReferred By ContactReferred To Contact Diagnoses Intractable chronic migraine without aura and without status migrainosus Procedures PROVIDER ORDERED FOLLOW UP OFFICE/OUTPATIENT [facility] 60 MINUTES Sagar Barth APRN.NURSE'S AIDES TEACHER [address] [place] [address] Referral IDStatusReasonStart DateExpiration DateVisits RequestedVisits [id number] PCP Requested Referral /[id number] / ProceduresReferred By ContactReferred To Contact Sagar Barth APRN.NURSE'S AIDES TEACHER [address] [phone] Referral IDStatusReasonStart DateExpiration DateVisits RequestedVisits [id number] / Procedures Referred By ContactReferred To ContactPsychology Diagnoses Psychogenic nonepileptic seizure Procedures CONSULT TO PSYCHOLOGY OFFICE/OUTPATIENT [facility] 60 MINUTES Curtis Lepe PA-C [address] [place] [address] Referral IDStatusReasonStart DateExpiration DateVisits RequestedVisits [id number] Review PCP Requested Referral / Additional Source Comments Source Comments (unrecognize d section and content) In the event this informatio n is protected by the Federal Confidentiality of Alcohol and Drug Abuse Patient Records regulations: The Federal rules restrict any use of the information to criminally investigate or prosecute any alcohol or drug abuse patient.[facility] HospitalIn the event this information is protected by the Federal Confidentiality of Alcohol and Drug Abuse Patient Records regulations: The Federal rules restrict any use of the information to criminally investigate or prosecute any alcohol or drug abuse patient.[facility] HospitalIn the event this information is protected by the Federal Confidentiality of Alcohol and Drug Abuse Patient Records regulations: The Federal rules restrict any use of the information to criminally investigate or prosecute any alcohol or drug abuse patient.[facility] HospitalIn the event this information is protected by the Federal Confidentiality of Alcohol and Drug Abuse Patient Records regulations: The Federal rules restrict any use of the information to criminally investigate or prosecute any alcohol or drug abuse patient.[facility] HospitalIn the event this information is protected by the Federal Confidentiality of Alcohol and Drug Abuse Patient Records regulations: The Federal rules restrict any use of the information to criminally investigate or prosecute any alcohol or drug abuse patient.[facility] HospitalIn the event this information is protected by the Federal Confidentiality of Alcohol and Drug Abuse Patient Records regulations: The Federal rules restrict any use of the information to criminally investigate or prosecute any alcohol or drug abuse patient.[facility] HospitalIn the event this information is protected by the Federal Confidentiality of Alcohol and Drug Abuse Patient Records regulations: The Federal rules restrict any use of the information to criminally investigate or prosecute any alcohol or drug abuse patient.[facility] HospitalIn the event this information is protected by the Federal Confidentiality of Alcohol and Drug Abuse Patient Records regulations: The Federal rules restrict any use of the information to criminally investigate or prosecute any alcohol or drug abuse patient.[facility] HospitalIn the event this information is protected by the Federal Confidentiality of Alcohol and Drug Abuse Patient Records regulations: The Federal rules restrict any use of the information to criminally investigate or prosecute any alcohol or drug abuse patient.[facility] HospitalIn the event this information is protected by the Federal Confidentiality of Alcohol and Drug Abuse Patient Records regulations: The Federal rules restrict any use of the information to criminally investigate or prosecute any alcohol or drug abuse patient.[facility] HospitalIn the event this information is protected by the Federal Confidentiality of Alcohol and Drug Abuse Patient Records regulations: The Federal rules restrict any use of the information to criminally investigate or prosecute any alcohol or drug abuse patient.[facility] HospitalIn the event this information is protected by the Federal Confidentiality of Alcohol and Drug Abuse Patient Records regulations: The Federal rules restrict any use of the information to criminally investigate or prosecute any alcohol or drug abuse patient.[facility] HospitalIn the event this information is protected by the Federal Confidentiality of Alcohol and Drug Abuse Patient Records regulations: The Federal rules restrict any use of the information to criminally investigate or prosecute any alcohol or drug abuse patient.[facility] HospitalIn the event this information is protected by the Federal Confidentiality of Alcohol and Drug Abuse Patient Records regulations: The Federal rules restrict any use of the information to criminally investigate or prosecute any alcohol or drug abuse patient.[facility] HospitalIn the event this information is protected by the Federal Confidentiality of Alcohol and Drug Abuse Patient Records regulations: The Federal rules restrict any use of the information to criminally investigate or prosecute any alcohol or drug abuse patient.[facility] HospitalIn the event this information is protected by the Federal Confidentiality of Alcohol and Drug Abuse Patient Records regulations: The Federal rules restrict any use of the information to criminally investigate or prosecute any alcohol or drug abuse patient.[facility] HospitalIn the event this information is protected by the Federal Confidentiality of Alcohol and Drug Abuse Patient Records regulations: The Federal rules restrict any use of the information to criminally investigate or prosecute any alcohol or drug abuse patient.[facility] HospitalIn the event this information is protected by the Federal Confidentiality of Alcohol and Drug Abuse Patient Records regulations: The Federal rules restrict any use of the information to criminally investigate or prosecute any alcohol or drug abuse patient.[facility] HospitalIn the event this information is protected by the Federal Confidentiality of Alcohol and Drug Abuse Patient Records regulations: The Federal rules restrict any use of the information to criminally investigate or prosecute any alcohol or drug abuse patient.[facility] HospitalIn the event this information is protected by the Federal Confidentiality of Alcohol and Drug Abuse Patient Records regulations: The Federal rules restrict any use of the information to criminally investigate or prosecute any alcohol or drug abuse patient.[facility] HospitalIn the event this information is protected by the Federal Confidentiality of Alcohol and Drug Abuse Patient Records regulations: The Federal rules restrict any use of the information to criminally investigate or prosecute any alcohol or drug abuse patient.[facility] HospitalIn the event this information is protected by the Federal Confidentiality of Alcohol and Drug Abuse Patient Records regulations: The Federal rules restrict any use of the information to criminally investigate or prosecute any alcohol or drug abuse patient.[facility] HospitalIn the event this information is protected by the Federal Confidentiality of Alcohol and Drug Abuse Patient Records regulations: The Federal rules restrict any use of the information to criminally investigate or prosecute any alcohol or drug abuse patient.[facility] HospitalIn the event this information is protected by the Federal Confidentiality of Alcohol and Drug Abuse Patient Records regulations: The Federal rules restrict any use of the information to criminally investigate or prosecute any alcohol or drug abuse patient.[facility] HospitalIn the event this information is protected by the Federal Confidentiality of Alcohol and Drug Abuse Patient Records regulations: The Federal rules restrict any use of the information to criminally investigate or prosecute any alcohol or drug abuse patient.[facility] HospitalIn the event this information is protected by the Federal Confidentiality of Alcohol and Drug Abuse Patient Records regulations: The Federal rules restrict any use of the information to criminally investigate or prosecute any alcohol or drug abuse patient.[facility] HospitalIn the event this information is protected by the Federal Confidentiality of Alcohol and Drug Abuse Patient Records regulations: The Federal rules restrict any use of the information to criminally investigate or prosecute any alcohol or drug abuse patient.[facility] HospitalIn the event this information is protected by the Federal Confidentiality of Alcohol and Drug Abuse Patient Records regulations: The Federal rules restrict any use of the information to criminally investigate or prosecute any alcohol or drug abuse patient.[facility] HospitalIn the event this information is protected by the Federal Confidentiality of Alcohol and Drug Abuse Patient Records regulations: The Federal rules restrict any use of the information to criminally investigate or prosecute any alcohol or drug abuse patient.[facility] HospitalIn the event this information is protected by the Federal Confidentiality of Alcohol and Drug Abuse Patient Records regulations: The Federal rules restrict any use of the information to criminally investigate or prosecute any alcohol or drug abuse patient.[facility] HospitalIn the event this information is protected by the Federal Confidentiality of Alcohol and Drug Abuse Patient Records regulations: The Federal rules restrict any use of the information to criminally investigate or prosecute any alcohol or drug abuse patient.[facility] HospitalIn the event this information is protected by the Federal Confidentiality of Alcohol and Drug Abuse Patient Records regulations: The Federal rules restrict any use of the information to criminally investigate or prosecute any alcohol or drug abuse patient.[facility] HospitalIn the event this information is protected by the Federal Confidentiality of Alcohol and Drug Abuse Patient Records regulations: The Federal rules restrict any use of the information to criminally investigate or prosecute any alcohol or drug abuse patient.[facility] HospitalIn the event this information is protected by the Federal Confidentiality of Alcohol and Drug Abuse Patient Records regulations: The Federal rules restrict any use of the information to criminally investigate or prosecute any alcohol or drug abuse patient.[facility] HospitalIn the event this information is protected by the Federal Confidentiality of Alcohol and Drug Abuse Patient Records regulations: The Federal rules restrict any use of the information to criminally investigate or prosecute any alcohol or drug abuse patient.[facility] HospitalIn the event this information is protected by the Federal Confidentiality of Alcohol and Drug Abuse Patient Records regulations: The Federal rules restrict any use of the information to criminally investigate or prosecute any alcohol or drug abuse patient.[facility] HospitalIn the event this information is protected by the Federal Confidentiality of Alcohol and Drug Abuse Patient Records regulations: The Federal rules restrict any use of the information to criminally investigate or prosecute any alcohol or drug abuse patient.[facility] HospitalIn the event this information is protected by the Federal Confidentiality of Alcohol and Drug Abuse Patient Records regulations: The Federal rules restrict any use of the information to criminally investigate or prosecute any alcohol or drug abuse patient.[facility] HospitalIn the event this information is protected by the Federal Confidentiality of Alcohol and Drug Abuse Patient Records regulations: The Federal rules restrict any use of the information to criminally investigate or prosecute any alcohol or drug abuse patient.[facility] HospitalIn the event this information is protected by the Federal Confidentiality of Alcohol and Drug Abuse Patient Records regulations: The Federal rules restrict any use of the information to criminally investigate or prosecute any alcohol or drug abuse patient.[facility] HospitalIn the event this information is protected by the Federal Confidentiality of Alcohol and Drug Abuse Patient Records regulations: The Federal rules restrict any use of the information to criminally investigate or prosecute any alcohol or drug abuse patient.[facility] HospitalIn the event this information is protected by the Federal Confidentiality of Alcohol and Drug Abuse Patient Records regulations: The Federal rules restrict any use of the information to criminally investigate or prosecute any alcohol or drug abuse patient.[facility] HospitalIn the event this information is protected by the Federal Confidentiality of Alcohol and Drug Abuse Patient Records regulations: The Federal rules restrict any use of the information to criminally investigate or prosecute any alcohol or drug abuse patient.[facility] HospitalIn the event this information is protected by the Federal Confidentiality of Alcohol and Drug Abuse Patient Records regulations: The Federal rules restrict any use of the information to criminally investigate or prosecute any alcohol or drug abuse patient.[facility] HospitalIn the event this information is protected by the Federal Confidentiality of Alcohol and Drug Abuse Patient Records regulations: The Federal rules restrict any use of the information to criminally investigate or prosecute any alcohol or drug abuse patient.[facility] HospitalIn the event this information is protected by the Federal Confidentiality of Alcohol and Drug Abuse Patient Records regulations: The Federal rules restrict any use of the information to criminally investigate or prosecute any alcohol or drug abuse patient.[facility] HospitalIn the event this information is protected by the Federal Confidentiality of Alcohol and Drug Abuse Patient Records regulations: The Federal rules restrict any use of the information to criminally investigate or prosecute any alcohol or drug abuse patient.[facility] HospitalIn the event this information is protected by the Federal Confidentiality of Alcohol and Drug Abuse Patient Records regulations: The Federal rules restrict any use of the information to criminally investigate or prosecute any alcohol or drug abuse patient.[facility] HospitalIn the event this information is protected by the Federal Confidentiality of Alcohol and Drug Abuse Patient Records regulations: The Federal rules restrict any use of the information to criminally investigate or prosecute any alcohol or drug abuse patient.[facility] HospitalIn the event this information is protected by the Federal Confidentiality of Alcohol and Drug Abuse Patient Records regulations: The Federal rules restrict any use of the information to criminally investigate or prosecute any alcohol or drug abuse patient.[facility] HospitalIn the event this information is protected by the Federal Confidentiality of Alcohol and Drug Abuse Patient Records regulations: The Federal rules restrict any use of the information to criminally investigate or prosecute any alcohol or drug abuse patient.[facility] HospitalIn the event this information is protected by the Federal Confidentiality of Alcohol and Drug Abuse Patient Records regulations: The Federal rules restrict any use of the information to criminally investigate or prosecute any alcohol or drug abuse patient.[facility] HospitalIn the event this information is protected by the Federal Confidentiality of Alcohol and Drug Abuse Patient Records regulations: The Federal rules restrict any use of the information to criminally investigate or prosecute any alcohol or drug abuse patient.[facility] HospitalIn the event this information is protected by the Federal Confidentiality of Alcohol and Drug Abuse Patient Records regulations: The Federal rules restrict any use of the information to criminally investigate or prosecute any alcohol or drug abuse patient.[facility] HospitalIn the event this information is protected by the Federal Confidentiality of Alcohol and Drug Abuse Patient Records regulations: The Federal rules restrict any use of the information to criminally investigate or prosecute any alcohol or drug abuse patient.[facility] HospitalIn the event this information is protected by the Federal Confidentiality of Alcohol and Drug Abuse Patient Records regulations: The Federal rules restrict any use of the information to criminally investigate or prosecute any alcohol or drug abuse patient.[facility] HospitalIn the event this information is protected by the Federal Confidentiality of Alcohol and Drug Abuse Patient Records regulations: The Federal rules restrict any use of the information to criminally investigate or prosecute any alcohol or drug abuse patient.[facility] HospitalIn the event this information is protected by the Federal Confidentiality of Alcohol and Drug Abuse Patient Records regulations: The Federal rules restrict any use of the information to criminally investigate or prosecute any alcohol or drug abuse patient.[facility] HospitalIn the event this information is protected by the Federal Confidentiality of Alcohol and Drug Abuse Patient Records regulations: The Federal rules restrict any use of the information to criminally investigate or prosecute any alcohol or drug abuse patient.[facility] HospitalIn the event this information is protected by the Federal Confidentiality of Alcohol and Drug Abuse Patient Records regulations: The Federal rules restrict any use of the information to criminally investigate or prosecute any alcohol or drug abuse patient.[facility] HospitalIn the event this information is protected by the Federal Confidentiality of Alcohol and Drug Abuse Patient Records regulations: The Federal rules restrict any use of the information to criminally investigate or prosecute any alcohol or drug abuse patient.[facility] HospitalIn the event this information is protected by the Federal Confidentiality of Alcohol and Drug Abuse Patient Records regulations: The Federal rules restrict any use of the information to criminally investigate or prosecute any alcohol or drug abuse patient.[facility] HospitalIn the event this information is protected by the Federal Confidentiality of Alcohol and Drug Abuse Patient Records regulations: The Federal rules restrict any use of the information to criminally investigate or prosecute any alcohol or drug abuse patient.[facility] HospitalIn the event this information is protected by the Federal Confidentiality of Alcohol and Drug Abuse Patient Records regulations: The Federal rules restrict any use of the information to criminally investigate or prosecute any alcohol or drug abuse patient.[facility] HospitalIn the event this information is protected by the Federal Confidentiality of Alcohol and Drug Abuse Patient Records regulations: The Federal rules restrict any use of the information to criminally investigate or prosecute any alcohol or drug abuse patient.[facility] HospitalIn the event this information is protected by the Federal Confidentiality of Alcohol and Drug Abuse Patient Records regulations: The Federal rules restrict any use of the information to criminally investigate or prosecute any alcohol or drug abuse patient.[facility] HospitalIn the event this information is protected by the Federal Confidentiality of Alcohol and Drug Abuse Patient Records regulations: The Federal rules restrict any use of the information to criminally investigate or prosecute any alcohol or drug abuse patient.[facility] HospitalIn the event this information is protected by the Federal Confidentiality of Alcohol and Drug Abuse Patient Records regulations: The Federal rules restrict any use of the information to criminally investigate or prosecute any alcohol or drug abuse patient.[facility] HospitalIn the event this information is protected by the Federal Confidentiality of Alcohol and Drug Abuse Patient Records regulations: The Federal rules restrict any use of the information to criminally investigate or prosecute any alcohol or drug abuse patient.[facility] HospitalIn the event this information is protected by the Federal Confidentiality of Alcohol and Drug Abuse Patient Records regulations: The Federal rules restrict any use of the information to criminally investigate or prosecute any alcohol or drug abuse patient.[facility] Reason for Visit (unrecogniz ed section and content) ReasonCommentsHeadacheSpecialtyDiagnoses / ProceduresReferred By ContactReferred To Contact Diagnoses Intractable chronic migraine without aura and without status migrainosus Procedures INJECTION, EPTINEZUMAB-JJMR, 1 MG Sagar Barth, UMANG.NURSE'S AIDES TEACHER [address] [place] [address] Phone: tel: fax: Neurology [address] [place], [place] Phone: tel: fax: Referral IDStatusReasonStart DateExpiration DateVisits RequestedVisits [id number]/31/20248/[id number]jywrjd SpecialtyDiagnoses / ProceduresReferred By ContactReferred To Contact Diagnoses Intractable chronic migraine without aura and without status migrainosus Procedures INJECTION, EPTINEZUMAB-JJMR, 1 MG Sagar Barth, AUTO PAINTER.NURSE'S AIDES TEACHER [address] [place] [address] Phone: tel: fax: Neurology [address] [place] [phone] Phone: tel: fax: ReasonCommentsInfusionHeadacheSpecialtyDiagnoses / ProceduresReferred By Contact Referred To ContactNeurology / HEADACHE Diagnoses NON-DHE #1 Procedures INFUSION HEADACHE Suzan Ivey APRN.NURSE'S AIDES TEACHER [address] [place] [address] Neur Headache Main S2 [address] [place] [phone] Referral IDStatusReasonStart DateExpiration DateVisits RequestedVisits [id number]/21/202412/31/[id number] SpecialtyDiagnoses / ProceduresReferred By ContactReferred To Contact Diagnoses Intractable chronic migraine without aura and without status migrainosus Procedures PROVIDER ORDERED FOLLOW UP OFFICE/OUTPATIENT [facility] 60 MINUTES Sagar Barth APRN.NURSE'S AIDES TEACHER [address] [place] [address] Referral IDStatusReasonStart DateExpiration DateVisits RequestedVisits [id number] PCP Requested Referral [id number] / ProceduresReferred By ContactReferred To Contact Diagnoses Intractable chronic migraine without aura and without status migrainosus Procedures INJECTION, EPTINEZUMAB-JJMR, 1 MG Sagar Barth, UMANG.NURSE'S AIDES TEACHER [address] [place] [address] Neur Headache Main S[address] [place] [address] Referral IDStatusReasonStart DateExpiration DateVisits RequestedVisits [id number]/31/20241/[id number] Block SpecialtyDiagnoses / ProceduresReferred By ContactReferred To ContactNeurology / HEADACHE Diagnoses NON-DHE #1 Procedures INFUSION HEADACHE Suzan Ivey APRN.NURSE'S AIDES TEACHER [address] [place] [address] Neur Headache Main S[address] [place] [address] ReasonCommentsFuture AppointmentNew [place], [place], AnyReasonCommentsMigraineseen at [facility] and D & C for miscarrageReasonCommentsNew Patient ReasonCommentsOrdersReasonCommentsSeizuresFollow UpReasonCommentsMigrainex 2 week lasts up to 4 days light sensitivity, sees silver dots looks like stars. Goes into convulsions during migraines. No meds for migraines has ever worked. ReasonCommentsAppointmentinfusionSpecialtyDiagnoses / ProceduresReferred By ContactReferred To ContactNeurology / HEADACHE Diagnoses DHE Procedures INFUSION HEADACHE Abdifatah Brady MD [address] [place] [address] Neur Headache Main S[address] [place] [address] Referral IDStatusReasonStart DateExpiration DateVisits RequestedVisits [id number]/8/20238/[id number] MigraineReason CommentsChronic MigraineReasonCommentsInsurance AuthorizationZomig 5MG nasal sprayReasonCommentsInfusionSpecialtyDiagnoses / ProceduresReferred By Contact Referred To ContactNeurology / HEADACHE Diagnoses POSSIBLE DHE/WAITING FOR ORDERS Procedures INFUSION HEADACHE Self Neur Headache Main S[address] [place] [address] Referral IDStatusReasonStart DateExpiration DateVisits RequestedVisits [id number]/21/202312/[id number] DateCommentsRefill Nweqtau6212/09/2022ReasonOnset DateCommentsRefill Ncioybe2112/13/2022ReasonComments InfusionHEADACHE INFUSIONSReasonCommentsInsurance AuthorizationAimovig 70MG/ML auto-injectorsReasonCommentsAppointmentPatient currently receiving infusions for headache. She is interested in learning about reboot program. Please schedule patient for evaluation if appropriate to proceed.ReasonCommentsMigraineReason CommentsMigraineSpecialtyDiagnoses / ProceduresReferred By ContactReferred To ContactNeurology / HEADACHE Diagnoses Chronic migraine without aura, intractable, without status migrainosus Migraines Nerve Block Procedures INJECTION AA&/STRD GREATER OCCIPITAL NERVE NERVE BLOCK Sagar Barth, UMANG.NURSE'S AIDES TEACHER [address] [place] [address] Tyrone Dolan MD, PhD [address] [facility] [address] [place] [address] Referral IDStatusReasonStart DateExpiration DateVisits RequestedVisits [id number]/8/202412/836549WkviyvWnfus DateCommentsRefill Ujitxeb9211/10/2023SpecialtyDiagnoses / ProceduresReferred By ContactReferred To Contact Diagnoses Intractable chronic migraine without aura and without status migrainosus Procedures INJECTION, EPTINEZUMAB-JJMR, 1 MG Sagar Barth, AUTO PAINTER.NURSE'S AIDES TEACHER [address] [place] [address] Neur Headache Main S2 [address] [place] [address] ReasonCommentsFatigueDizzy, shaky, very tired, can't stay awake. clmReason CommentsMed RefillReasonCommentsShortness of BreathLeg SwellingReasonComments Follow-upClogged ears, hard to breatheReasonCommentsFollow-upFever runny nose, vomiting,ReasonCommentsFollow-upVomitingOngoing for about 3 weeksDiarrheaReason CommentsInsurance AuthorizationZolmitriptanReasonCommentsfollow up ultrasound ReasonCommentsER Follow-upReasonCommentsTestingReasonOnset DateCommentsOther 03/21/2024Surgery questionsReasonCommentsNew PatientCoughdeniesWheezingReports mostly at nightShortness of BreathdeniesSpecialtyDiagnoses / ProceduresReferred By ContactReferred To ContactPulmonary Medicine Diagnoses Bilateral ovarian cysts Moderate asthma with acute exacerbation, unspecified whether persistent Encounter for preoperative pulmonary examination Mundo Martinez MD [address] [place] [address] Phone: tel: fax: Jefry Hills MD [address] [place], [address] [address] Phone: tel: fax: Referral IDStatusReasonStart DateExpiration DateVisits RequestedVisits [id number] [facility] Required [id number] CheckReasonCommentsFlu SymptomsAbdominal PainSpecialtyDiagnoses / ProceduresReferred By ContactReferred To Contact Diagnoses Sepsis ([facility]) Abdominal wall cellulitis [facility] - Emergency Department [address] [facility] [place] [address] Phone: tel: fax: Referral IDStatusReasonStart DateExpiration DateVisits RequestedVisits [id number] Women VisitReasonCommentsPost-op2 week post-opReasonCommentsEstablish CareReasonCommentsMigraineChronic MigraineReason CommentsInsurance AuthorizationubrelvyReasonCommentsFollow-upReasonCommentssinus infectionReasonOnset DateCommentsMed Wptjrg2405/24/2024ReasonOnset DateComments Refill Wefvjxb0005/31/2024ReasonCommentsFatigueReasonCommentsMed Change Request ReasonCommentsVaginitis/Bacterial VaginosisReasonCommentsInfusionHeadache infusion schedulingReasonCommentsEye PainSpecialtyDiagnoses / ProceduresReferred By ContactReferred To ContactNeurology / HEADACHE Diagnoses NON-DHE INFUSION Procedures DEHYDROERGOTAMINE INJECTION INFUSION HEADACHE [facility] [address] [place] [address] Phone: tel:42 Neurology [address] [place] [address] Phone: tel: fax: Referral IDStatusReasonStart DateExpiration DateVisits RequestedVisits [id number]/13/202512/[id number] AuthorizationZavzpret 10MG/ACT solutionZavzpret 10MG/ACT solutionReasonOnset DateCommentsGenetic Testing Prior Authorization Rdgskmj3006/25/2024ReasonComments Discuss HormonesReasonCommentsNasal CongestionReasonCommentsAnnual ExamObesity ReasonOnset DateCommentsSleep Lab12/12/2024omp PSG/PAPReasonCommentsFollow-up CoughReports d/t allergiesnonproductiveWheezingReports morning, night and through the dayShortness of BreathReports with exertion/activityReasonComments Eye ProblemBurning and watering, pain with touch. Scheduled Active and Recently Administ ered Medications (unrecognized section and content) Medication Order// 0.9 % sodium chloride bolus (COMPLETED) 1,000 mL, IntraVENous, at 1,000 mL/hr, Administer over 1 Hours, ONCE, On Meg 12/24/20 at 2030, For 1dose * 2041 (New Bag - Provider: Praveena Ruffin RN) * 2145 (Stopped - Provider: Praveena Ruffin, PRATIBHA) diphenhydrAMINE (BENADRYL) injection 50 mg (COMPLETED) 50 mg, IntraVENous, ONCE, On Meg 12/24/20 at 2030, For 1 dose * 2044 (Given - Provider: Praveena Ruffin, PRATIBHA) ketorolac (TORADOL) injection 15 mg (COMPLETED) 15 mg, IntraVENous, ONCE, On Meg 12/24/20 at 2030, For 1 dose * 2044 (Given - Provider: Praveena Ruffin, PRATIBHA) ondansetron (ZOFRAN) injection 4 mg (COMPLETED) 4 mg, IntraVENous, ONCE, On Meg 12/24/20 at 2030, For 1 dose * 2043 (Given - Provider: Praveena Ruffin, PRATIBHA) Medication Order enoxaparin (LOVENOX) injection 40 mg 40 mg, SubCUTAneous, DAILY, First dose on Mon10/19/21 at 1245, Until Discontinued, Indication of Use: Prophylaxis-DVT/PE * 1832 (Given - Provider: Adrienne Stephens, PRATIBHA) * 0834 (Given - Provider: Clementine Cm, PRATIBHA) lamoTRIgine (LAMICTAL) tablet 50 mg 50 mg, Oral, DAILY, First dose on Mon10/19/21 at 1445, Until Discontinued * 1445 (Due) * 0834 (Given - Provider: Clementine Cm, PRATIBHA) lidocaine 4 % external patch 1 patch 1 patch, TransDERmal, Administer over 12 Hours, DAILY, First dose on Mon10/20/21 at 0900, Apply 1 skin 2 packs daily for 12 hours on, 12 hours off * 0834 (Patch Applied - Provider: Clementine Cm, PRATIBHA) * 2033 (Due: Patch Removed - Provider: Clementine Cm, PRATIBHA) midazolam PF (VERSED) injection 1 mg (COMPLETED) 1 mg, IntraVENous, ONCE, 1 dose, On Mon10/19/21 at 1515, OK to repeat x1 for MRI * 1707 (Given - Provider: Adrienne Stephens RN) sodium chloride flush 0.9 % injection 5-40 mL 5-40 mL, IntraVENous, EVERY 12 HOURS SCHEDULED (2 times per day), First dose on Mon10/19/21 at 2100, Until Discontinued, For Line Patency: Peripheral IV = 5 mL; Midline or Central Line = 10 mL/lumen.If following IV push medication, administer flush at same rate as the IV push. Flush volume is determined by type of infusion therapy being given. For non-viscous solutions use: Peripheral IV = 5 mL Midline or Central Line = 10 mL/lumen For viscous solutions (i.e. blood components, parenteral nutrition, contrast media, or after obtaining blood sample) use: Peripheral IV = 10 mL Midline or CentralLine = 20 mL/lumen * 2044 (Given - Provider: Brittney Santana RN) * 1114 (Canceled Entry - Provider: Clementine Cm RN) * 2100 (Due) Medication Order 0.9 % sodium chloride infusion (CANCELED) IntraVENous, at 125 mL/hr, CONTINUOUS, Starting on Mon10/19/21 at 1245 * 1740 (New Bag - Provider: Adrienne Stephens, PRATIBHA) * 0714 (Stopped - Provider: Yun Neal RN) Medication Order10/18// 0.9 % sodium chloride infusion IntraVENous, at [...] Administer if oral route cannot be used. * 0003 (See Alternative - Provider: Brittney Santana RN) * 0834 (See Alternative - Provider: Clementine Cm RN) acetaminophen (TYLENOL) tablet 1,000 mg(Linked Group 1) 1,000 mg, Oral, EVERY 6 HOURS PRN, Starting on Mon10/19/21 at 2354, Until Discontinued, Pain Mild (1-3), Fever, For temp greater than 100.4 F (38 C), Maximum dose of acetaminophen is 4000 mg from allsources in 24 hours. * 0003 (Given - Provider: Brittney Santana RN - Comment: incision from c section) * 0834 (Given - Provider: Clementine Cm RN) acetaminophen (TYLENOL) tablet 650 mg (CANCELED) 650 mg, Oral, EVERY 6 HOURS PRN, Starting on Mon10/19/21 at 1226, Until Mon10/19/21 at 2354, Pain Mild (1-3), Fever, For temp greater than 100.4 F (38 C), Maximum dose of acetaminophen is 4000 mg from all sources in 24 hours. * 1832 (Given - Provider: Adrienne Stephens, PRATIBHA) gadoteridol (PROHANCE) injection 20 mL (COMPLETED) 20 mL, IntraVENous, IMG ONCE PRN, 1 dose, Starting on Mon10/19/21 at 1552, Until Mon10/19/21 at 1552, Other * 1552 (Given - Provider: Dinorah Cruz) loperamide (IMODIUM) capsule 2 mg 2 mg, Oral, 4 TIMES DAILY PRN, Starting on Mon10/20/21 at 1046, Until Discontinued, Diarrhea, Aftereach loose stool. * 1215 (Given - Provider: Clementine Cm RN) ondansetron (ZOFRAN) injection 4 [...] For viscous solutions (i.e. blood components, parenteral nutrition,contrast media, or after obtaining blood sample) use: Peripheral IV = 10 mL Midline or Central Line= 20 mL/lumen Order Group 1: acetaminophen (TYLENOL) tablet 1,000 [...]
Administer if oral route cannot be used.
Medication Order04/08//// amoxicillin-pot clavulanate (AUGMENTIN) 875-125 mg per tablet 1 tablet 1 tablet, oral, Every 8 hours, First dose on Mon04/10/24 at 0800, For 7 days, Indication: Skin and soft tissue infection * 0911 (Given - Provider: Effie Keene RN) * 1601 (Given - Provider: Effie Keene RN) cefTRIAXone (ROCEPHIN) 1,000 mg in sodium chloride 0.9 % 50 mL IVPB-MBP (COMPLETED) 1,000 mg, intravenous, at 100 mL/hr, Administer over 30 Minutes, Once, On Mon04/08/24 at 1450, For 1 dose, Look-alike/sound-alike medication - verify indication for use. Do not co-administer with calcium-containing solutions such as Lactated Ringers., Indication: Intra-abdominal * 1603 (New Bag - Provider: Lillie Antonio RN) * 1633 (Stop Bag - Provider: Lillie Antonio RN) diazePAM (VALIUM) tablet 5 mg 5 mg, oral, 2 times daily, First dose on Mon04/08/24 at 2145, Look-alike/sound-alike medication - verify indication for use. Do not use solution in feeding tubes (due to absorption to plastic tubing). Tablets may be crushed and administered in tubes (except j-tube) * 2218 (Given - Provider: Lo Peres RN) * 1018 (Given - Provider: Fredi Lowe RN) * 2136 (Given - Provider: Corby Bojorquez RN) * 0828 (Given - Provider: Effie Keene RN) diphenhydrAMINE (BENADRYL) injection 12.5 mg (COMPLETED) 12.5 mg, intravenous, Once, On Mon04/09/24 at 1100, For 1 dose, Look-alike/sound-alike medication -verify indication for use. * 1159 (Given - Provider: Fredi Lowe RN) diphenhydrAMINE (BENADRYL) injection 25 mg (COMPLETED) 25 mg, intravenous, Once, On Mon04/08/24 at 1450, For 1 dose, Look-alike/sound-alike medication - verify indication for use. * 1558 (Given - Provider: Lillie Antonio RN) estradioL (VIVELLE-DOT) 0.0375 mg/24 hr 1 patch 1 patch, transdermal, 2 times weekly (Once per day on Monday), First dose on Mon04/09/24 at 0915, Remove previous patch, if present, before applying new. Remove for MRI. Place on trunk of body (preferably abdomen). Rotate application sites allowing a 1-week interval between applications chicho particular site. * 1019 (Medication Applied - Provider: Fredi Lowe RN - Comment: r abd) HYDROmorphone (DILAUDID) injection 0.5 mg (CANCELED) 0.5 mg, intravenous, Once, On Mon04/08/24 at 1805, For 1 dose, If IV push, administer over over 2 to 3 minutes. To be given prior to bedside procedure Look-alike/sound-alike medication - verify indication for use. * 203 (Given - Provider: Lo Peres RN) HYDROmorphone (DILAUDID) injection 0.5 mg (COMPLETED) 0.5 mg, intravenous, Once, On Mon04/08/24 at 2015, For 1 dose, If IV push, administer over over 2 to 3 minutes. Look-alike/sound-alike medication - verify indication for use. * 2019 (Given - Provider: Lo Peres RN) HYDROmorphone (DILAUDID) injection 1 mg (COMPLETED) 1 mg, intravenous, Once, On Mon04/08/24 at 1625, For 1 dose, If IV push, administer over over 2 to 3 minutes. Look-alike/sound-alike medication - verify indication for use. * 1640 (Given - Provider: Lillie Antonio RN) ketorolac (TORADOL) injection 15 mg (COMPLETED) 15 mg, intramuscular, Once, On Mon04/09/24 at 1100, For 1 dose, Look-alike/sound-alike medication -verify indication for use. Duration of therapy is not to exceed 5 days. Maximum recommended dose + 120mg/24 hours. * 1159 (Given - Provider: Ferdi Lowe RN) lamoTRIgine (LaMICtal) tablet 200 mg 200 mg, oral, 2 times daily, First dose on Mon04/08/24 at 2145, Look-alike/sound-alike medication -verify indication for use. * 2218 (Given - Provider: Lo Peres RN) * 1018 (Given - Provider: Fredi Lowe RN) * 2136 (Given - Provider: Corby Bojorquez RN) * 0828 (Given - Provider: Effie Keene RN) lidocaine PF (XYLOCAINE) 10 mg/mL (1 %) injection 100 mg 100 mg (10 mL), infiltration, Once, On Mon04/08/24 at 1650, For 1 dose * 1650 (Not Given - Provider: Lillie Antonio RN - Reason: Other - Comment: no longer needed per OBGYN) lidocaine-EPINEPHrine (XYLOCAINE W/EPI) 1 %-1:[id number] injection 30 mL (COMPLETED) 30 mL, intradermal, Once, On Mon04/08/24 at 1805, For 1 dose, Look-alike/sound-alike medication - verify indication for use. * 2032 (Given - Provider: Lo Peres RN) lithium carbonate tablet 600 mg 600 mg, oral, Nightly, First dose on Mon04/08/24 at 2200, Food-Drug Interaction Education Required Look-alike/sound-alike medication - verify indication for use Maintain normal daily intakes of fluids and salt (sodium) Enteral Feeding: Mix solution with 10-30 mL water prior to administering in f eeding tube * 2217 (Given - Provider: Lo Peres RN) * 2136 (Given - Provider: Corby Bojorquez RN) LORazepam (ATIVAN) injection 1 mg (COMPLETED) 1 mg, intravenous, Once, On Mon04/08/24 at 2014, For 1 dose, Look-alike/sound-alike medication - verify indication for use;IV use requires increased monitoring of HR,BP,Respirations and Pulse Oximetry;For IV-dilute with equal volume PF sod chloride, Indication: Sedation * 2010 (Given - Provider: Lo Peres RN) metroNIDAZOLE (FLAGYL) IVPB 500 mg/100 mL in iso-osmotic sodium chloride (5 mg/mL premix) (COMPLETED) 500 mg, intravenous, at 100 mL/hr, Administer over 60 Minutes, Once, On Mon04/08/24 at 1450, For 1 dose, Look-alike/sound-alike medication - verify indication for use., Indication: Intra-abdominal * 1646 (New Bag - Provider: Lillie Antonio, RN) * 1746 (Stop Bag - Provider: Lillie Antonio, RN) morphine injection 4 mg (COMPLETED) 4 mg, intravenous, Once, On Mon04/08/24 at 1335, For 1 dose, Look-alike/sound-alike medication - verify indication for use. * 1415 (Given - Provider: Lillie Antonio, RN) ondansetron (PF) (ZOFRAN) injection 4 mg (COMPLETED) 4 mg, intravenous, Once, On Mon04/08/24 at 1335, For 1 dose, Administer over 2-5 minutes. * 1416 (Given - Provider: Lillie Antonio, RN) piperacillin-tazobactam (ZOSYN) 4.5 g in sodium chloride 0.9 % 50 mL IVPB-MBP (COMPLETED) 4.5 g, intravenous, at 100 mL/hr, Administer over 0.5 Hours, Once, On Mon04/08/24 at 1615, For 1 dose, ADD-VANTAGE/MBP- Discard 24 hours after activating; dissolve drug prior to administration * 2229 (New Bag - Provider: Lo Peres RN) * 2259 (Stop Bag - Provider: Lo Peres RN) sodium chloride 0.9 % bolus (COMPLETED) 2,000 mL, intravenous, at 3,871 mL/hr, Administer over 31 Minutes, Once, On Mon04/08/24 at 1335, For 1 dose * 1415 (New Bag - Provider: Lillie Antonio, PRATIBHA) * 1446 (Stop Bag - Provider: Lillie Antonio, RN) traZODone (DESYREL) tablet 300 mg 300 mg, oral, Nightly, First dose on Mon04/09/24 at 0100, Look-alike/sound-alike medication - verify indication for use. * 0117 (Given - Provider: Lo Peres RN) * 2137 (Given - Provider: Corby Bojorquez, PRATIBHA) vancomycin (VANCOCIN) IVPB 1250 mg/250 mL in 0.9% sodium chloride (premix) (CANCELED) 1,250 mg, intravenous, at 167 mL/hr, Administer over 90 Minutes, Every 8 hours, First dose on Mon04/09/24 at 1030, VESICANT (YELLOW), Indication: Other, Specify: peritonitis * 1215 (New Bag - Provider: Fredi Lowe, PRATIBHA) * 1345 (Stop Bag - Provider: Fredi Lowe, PRATIBHA) * 2133 (New Bag - Provider: Corby Bojorquez, PRATIBHA) * 2303 (Stop Bag - Provider: Corby Bojorquez, PRATIBHA) * 0440 (New Bag - Provider: Corby Bojorquez, RN) * 0610 (Stop Bag - Provider: Corby Bojorquez, RN) vancomycin (VANCOCIN) IVPB 2000 mg/500 mL in 0.9% sodium chloride (premix) (COMPLETED) 2,000 mg (rounded from 2,140 mg = 20 mg/kg 107 kg Order-specific weight), intravenous, at 250 mL/hr, Administer over 120 Minutes, Once, On Mon04/08/24 at 1615, For 1 dose, VESICANT (YELLOW), Indication: Uncomplicated skin and soft tissue infection * 1848 (New Bag - Provider: Fredi Lowe, RN) * 2129 (Stop Bag - Provider: Lo Peres RN) Medication Order50 acetaminophen (TYLENOL EXTRA STRENGTH) tablet 1,000 mg [...] Look-alike/sound-alike medication - verify indication for use. * 2045 (Given - Provider: Lo Peres RN) * 0013 (Given - Provider: Lo Peres RN) * 1008 (Given - Provider: Fredi Lowe RN) * 1516 (Given - Provider: Fredi Lowe RN) * 211 (Given - Provider: Corby Bojorquez, PRATIBHA) ibuprofen (MOTRIN) tablet 800 mg 800 mg, oral, Every 6 hours PRN, moderate pain - pain scale 4-6, Starting on Mon04/08/24 at 1825, Look-alike/sound-alike medication - verify indication for use. Take/Give with food or milk. * 0444 (Given - Provider: Corby Bojorquez, PRATIBHA) * 1129 (Given - Provider: Effie Keene RN) iohexoL (OMNIPAQUE) 300 mg iodine/mL 100 mL (COMPLETED) 100 mL, intravenous, Once in imaging, contrast, Starting on Mon04/08/24 at 1521, For 1 dose, VESICANT (RED) * 1525 (Given - Provider: Lam[facility] Carrington [facility]) iohexoL (OMNIPAQUE) 300 mg iodine/mL 30 mL 30 mL, oral, Once in imaging, contrast, Starting on Mon04/08/24 at 1335, For 1 dose, VESICANT (RED) ondansetron ODT (ZOFRAN ODT) disintegrating tablet 4 mg 4 mg, oral, Every 8 hours PRN, nausea, vomiting, Starting on Mon04/08/24 at 2225 * 1018 (Given - Provider: Fredi Lowe RN) oxyCODONE (ROXICODONE) immediate release tablet 5 mg (CANCELED) 5 mg, oral, Every 4 hours PRN, severe pain - pain scale 7-10, Starting on Mon04/08/24 at 1825, Look-alike/sound-alike medication - verify indication for use. Immediate release. * 1843 (Given - Provider: Fredi Lowe RN) * 2218 (Given - Provider: Lo Peres RN) * 0203 (Given - Provider: Lo Peres, RN) * 0704 (Given - Provider: Lo Peres RN) oxyCODONE (ROXICODONE) immediate release tablet 5 mg 5 mg, oral, Every 4 hours PRN, severe pain - pain scale 7-10, Starting on Mon04/09/24 at 1549, Look-alike/sound-alike medication - verify indication for use. Immediate release. * 1848 (Given - Provider: Fredi Lowe RN) * 0832 (Given - Provider: Effie Keene RN) * 1502 (Given - Provider: Effie Keene RN) sodium chloride 0.9 % flush 10 mL 10 mL, intravenous, As needed, line care, Starting on Mon04/08/24 at 1521 * 1525 (Given - Provider: SEVERINO Pérez) sodium chloride 0.9 % radiology injection (COMPLETED) 80 mL, intravenous, Once in imaging, pre/post contrast, Starting on Mon04/08/24 at 1521, For 1 dose * 1525 (Given - Provider: SEVERINO Pérez) INFORMATION SOURCE (unrecogn ized section and content) DATE CREATED AUTHOR 12/26/2020 [facility] DATE CREATED AUTHOR AUTHOR'S ORGANIZ ATION 10/25/2021 [facility] DATE CREATED AUTHOR AUTHOR'S ORGANIZ ATION 05/26/2022 [facility] DATE CREATED AUTHOR AUTHOR'S ORGANIZ ATION 08/02/2022 [facility] DATE CREATED AUTHOR AUTHOR'S ORGANIZ ATION 07/20/2024 [facility] DATE CREATED AUTHOR AUTHOR'S ORGANIZ ATION 09/07/2024 [facility] DATE CREATED AUTHOR AUTHOR'S ORGANIZ ATION 12/08/2024 [facility] DATE CREATED AUTHOR AUTHOR'S ORGANIZ ATION 12/18/2024 [facility] Ordered Prescriptions (unrec ognized section and content) PrescriptionSigDispensedRefillsStart DateEnd Date lamoTRIgine (LAMICTAL) 25 MG tablet Take 2 tablets by mouth daily 30 tablet Care Teams (unrecognized sec tion and content) Team MemberRelationshipSpecialtyStart DateEnd Date Derik Weber, AUTO PAINTER - NURSE'S AIDES TEACHER [address] [place] [address] PCP - GeneralNurse Noegwiyxveik79/4/21Team MemberRelationshipSpecialtyStart Date End Date Abdifatah Brady (Historical) PCP - General05/21/13Team MemberRelationshipSpecialtyStart DateEnd Date Abdifatah Brady M (Historical) PCP - General05/21/13Team MemberRelationshipSpecialtyStart DateEnd Date Abdifatah Brady M (Historical) PCP - General05/21/13Team MemberRelationshipSpecialtyStart DateEnd Date Abdifatah Brady M (Historical) PCP - General05/21/13Team MemberRelationshipSpecialtyStart DateEnd Date Abdifatah Brady M (Historical) PCP - General05/21/13Team MemberRelationshipSpecialtyStart DateEnd Date Abdifatah Brady M (Historical) PCP - General05/21/13Team MemberRelationshipSpecialtyStart DateEnd Date Abdifatah Brady M (Historical) PCP - General05/21/13Team MemberRelationshipSpecialtyStart DateEnd Date Abdifatah Brady M (Historical) PCP - General05/21/13Team MemberRelationshipSpecialtyStart DateEnd Date Abdifatah Brady M (Historical) PCP - General05/21/13Team MemberRelationshipSpecialtyStart DateEnd Date Abdifatah Brady M (Historical) PCP - General05/21/13Team MemberRelationshipSpecialtyStart DateEnd Date Abdifatah Brady M (Historical) PCP - General05/21/13Team MemberRelationshipSpecialtyStart DateEnd Date Hoy, Abdifatah M (Historical) PCP - General05/21/13Team MemberRelationshipSpecialtyStart DateEnd Date Hoy, Abdifatah M (Historical) PCP - General05/21/13Team MemberRelationshipSpecialtyStart DateEnd Date Hoy, Abdifatah M (Historical) PCP - General05/21/13Team MemberRelationshipSpecialtyStart DateEnd Date Hoy, Abdifatah M (Historical) PCP - General05/21/13Team MemberRelationshipSpecialtyStart DateEnd Date Hoy, Abdifatah M (Historical) PCP - General05/21/13Team MemberRelationshipSpecialtyStart DateEnd Date Hoy, Abdifatah M (Historical) PCP - General05/21/13Team MemberRelationshipSpecialtyStart DateEnd Date Hoy, Abdifatah M (Historical) PCP - General05/21/13Team MemberRelationshipSpecialtyStart DateEnd Date Hoy, Abdifatah M (Historical) PCP - General05/21/13Team MemberRelationshipSpecialtyStart DateEnd Date Hoy, Abdifatah M (Historical) PCP - General05/21/13Team MemberRelationshipSpecialtyStart DateEnd Date Hoy, Abdifatah M (Historical) PCP - General05/21/13Team MemberRelationshipSpecialtyStart DateEnd Date Hoy, Abdifatah M (Historical) PCP - General05/21/13Team MemberRelationshipSpecialtyStart DateEnd Date Hoy, Abdifatah M (Historical) PCP - General05/21/13Team MemberRelationshipSpecialtyStart DateEnd Date Hoy, Abdifatah M (Historical) PCP - General05/21/13Team MemberRelationshipSpecialtyStart DateEnd Date Hoy, Abdifatah M (Historical) PCP - General05/21/13Team MemberRelationshipSpecialtyStart DateEnd Date Hoy, Abdifatah M (Historical) PCP - General05/21/13Team MemberRelationshipSpecialtyStart DateEnd Date Hoy, Abdifatah M (Historical) PCP - General05/21/13Team MemberRelationshipSpecialtyStart DateEnd Date Hoy, Abdifatah M (Historical) PCP - General05/21/13Team MemberRelationshipSpecialtyStart DateEnd Date Abdifatah Brady (Historical) PCP - General05/21/13Team MemberRelationshipSpecialtyStart DateEnd Date Abdifatah Brady M (Historical) PCP - General05/21/13Team MemberRelationshipSpecialtyStart DateEnd Date Abdifatah Brady M (Historical) PCP - General05/21/13Team MemberRelationshipSpecialtyStart DateEnd Date Abdifatah Brady M (Historical) PCP - General05/21/13Team MemberRelationshipSpecialtyStart DateEnd Date Abdifatah Brady M (Historical) PCP - General05/21/13Team MemberRelationshipSpecialtyStart DateEnd Date Abdifatah Brady M (Historical) PCP - General05/21/13Team MemberRelationshipSpecialtyStart DateEnd Date Lamont Blair MD [address] [place] [address] PCP - GeneralFamily Medicine03/14/23Team MemberRelationshipSpecialtyStart DateEnd Date Abdifatah Brady (Historical) PCP - General05/21/13Team MemberRelationshipSpecialtyStart DateEnd Date Lamont Blair MD [address] [place] [address] PCP - GeneralFamily Medicine03/14/23Team MemberRelationshipSpecialtyStart DateEnd Date Lamont Blair MD [address] [place] [address] PCP - GeneralFamily Medicine03/14/23Team MemberRelationshipSpecialtyStart DateEnd Date Abdifatah Brady (Historical) PCP - General05/21/13Team MemberRelationshipSpecialtyStart DateEnd Date Abdiaftah Brady (Historical) PCP - General05/21/13Team MemberRelationshipSpecialtyStart DateEnd Date Lamont Blair MD [address] [place] [address] PCP - GeneralFamily Medicine03/14/23Team MemberRelationshipSpecialtyStart DateEnd Date Jose Antonio Abdifatah Lynn (Historical) PCP - General05/21/13Team MemberRelationshipSpecialtyStart DateEnd Date Lamont Blair MD [address] [place] [address] PCP - GeneralFamily Medicine03/14/23Team MemberRelationshipSpecialtyStart DateEnd Date Lamont Blair MD [address] [place] [address] PCP - GeneralFamily Medicine03/14/23Team MemberRelationshipSpecialtyStart DateEnd Date Lamont Blair MD [address] [place] [address] PCP - GeneralFamily Medicine03/14/23Team MemberRelationshipSpecialtyStart DateEnd Date Lamont Blair MD [address] [place] [address] PCP - GeneralFamily Medicine03/14/23Team MemberRelationshipSpecialtyStart DateEnd Date Lamont Blair MD [address] [place] [address] PCP - GeneralFamily Medicine03/14/23Team MemberRelationshipSpecialtyStart DateEnd Date Lamont Blair MD [address] [place] [address] PCP - GeneralFamily Medicine03/14/23Team MemberRelationshipSpecialtyStart DateEnd Date Lamont Blair MD [address] [place] [address] PCP - GeneralFamily Medicine03/14/23Team MemberRelationshipSpecialtyStart DateEnd Date Lamont Blair MD [address] [place] [address] PCP - GeneralFamily Medicine03/14/23Team MemberRelationshipSpecialtyStart DateEnd Date Lamont Blair MD [address] [place] [address] PCP - GeneralFamily Medicine03/14/23Team MemberRelationshipSpecialtyStart DateEnd Date Lamont Blair MD [address] [place] [address] PCP - GeneralFamily Medicine03/14/23Team MemberRelationshipSpecialtyStart DateEnd Date Lamont Blair MD [address] [place] [address] PCP - GeneralFamily Medicine03/14/23Team MemberRelationshipSpecialtyStart DateEnd Date Lamont Blair MD [address] [place] [address] PCP - GeneralFamily Medicine03/14/23Team MemberRelationshipSpecialtyStart DateEnd Date Lamont Blair MD [address] [place] [address] PCP - GeneralFamily Medicine03/14/23Team MemberRelationshipSpecialtyStart DateEnd Date Lamont Blair MD [address] [place] [address] PCP - GeneralFamily Medicine03/14/23Team MemberRelationshipSpecialtyStart DateEnd Date Lamont Blair MD PCP - GeneralFamily Medicine06/22/22Team MemberRelationshipSpecialtyStart DateEnd Date Lamont Blair MD PCP - GeneralFamily Medicine06/22/22Team MemberRelationshipSpecialtyStart DateEnd Date Lamont Blair MD PCP - GeneralFamily Medicine06/22/22Team MemberRelationshipSpecialtyStart DateEnd Date Lamont Blair MD PCP - GeneralFamily Medicine06/22/22Team MemberRelationshipSpecialtyStart DateEnd Date Lamont Blair MD PCP - GeneralFamily Medicine06/22/22Team MemberRelationshipSpecialtyStart DateEnd Date Lamont Blair MD PCP - GeneralFamily Medicine06/22/22Team MemberRelationshipSpecialtyStart DateEnd Date Corine Gold MD [address] [facility] [address] PCP - GeneralInternal Medicine03/25/24Team MemberRelationshipSpecialtyStart Date End Date Corine Gold MD [address], [place] [address] PCP - GeneralInternal Medicine03/25/24Team MemberRelationshipSpecialtyStart Date End Date Corine Gold MD [address], [place] [address] [facility] - [facility]03/25/24Team MemberRelationshipSpecialtyStart Date End Date Corine Gold MD [address] [place] [place] [address] PCP - GeneralInternal Medicine03/25/24Team MemberRelationshipSpecialtyStart Date End Date Lamont Blair MD [facility] [place] [address] PCP - GeneralFamily Medicine03/14/23Team MemberRelationshipSpecialtyStart DateEnd Date Corine Gold MD [address] [place] [address] PCP - GeneralInternal Medicine03/25/24Team MemberRelationshipSpecialtyStart Date End Date aLmont Blair MD [address] [place] [address] PCP - [facility] Medicine03/14/23am MemberRelationshipSpecialtyStart DateEnd Date Lamont Blair MD [address] [place] [address] PCP - [facility]03/14/23am MemberRelationshipSpecialtyStart DateEnd Date Corine Gold MD [address], [place] [address] [facility]03/25/24 MemberRelationshipSpecialtyStart Date End Date Corine Gold MD [address], [place] [address] [facility]03/25/24am MemberRelationshipSpecialtyStart Date End Date Corine Gold MD [address] [place] [address] [facility]03/25/24am MemberRelationshipSpecialtyStart Date End Date Corine Gold MD [address] [place] [address] [facility]03/25/24Team MemberRelationshipSpecialtyStart Date End Date Corine Gold MD [address] [place] [address] PCP - GeneralInternal Medicine03/25/24am MemberRelationshipSpecialtyStart Date End Date Corine Gold MD [address], [place] [address] PCP - GeneralInternal Medicine03/25/24am MemberRelationshipSpecialtyStart Date End Date Corine Gold MD [address], [place] [address] PCP - [facility]03/25/24 MemberRelationshipSpecialtyStart Date End Date Corine Gold MD [address], [place] [address] PCP - [facility]03/25/24 MemberRelationshipSpecialtyStart Date End Date Corine Gold MD [address], [address] [facility] [address] PCP - [facility]03/25/24am MemberRelationshipSpecialtyStart Date End Date Corine Gold MD [address], [address] [facility] [place] [address] PCP - GeneralInternal Medicine03/25/24am MemberRelationshipSpecialtyStart Date End Date Corine Gold MD [address], [place] [address] PCP - GeneralInternal Medicine03/25/24Team MemberRelationshipSpecialtyStart Date End Date Abdifatah Brady (Historical) PCP - General05/21/13Team MemberRelationshipSpecialtyStart DateEnd Date Corine Gold MD [address] [place] [address] PCP - GeneralInternal Medicine03/25/24Team MemberRelationshipSpecialtyStart Date End Date Corine Gold MD [address] [place] [address] PCP - [facility]03/25/24am MemberRelationshipSpecialtyStart Date End Date Unallocated, Noms MD [address] [place] [address] PCP - [facility] Medicine04/22/24Team MemberRelationshipSpecialtyStart DateEnd Date Unallocated, Noms MD [address] [place] [address] PCP - [facility] Medicine04/22/24 MemberRelationshipSpecialtyStart DateEnd Date Corine Gold MD [address] [place] [address] [facility] - [facility]06/11/24Team MemberRelationshipSpecialtyStart DateEnd Date Corine Gold MD [address] [place] [address] PCP - [facility]03/25/24Team MemberRelationshipSpecialtyStart Date End Date Corine Gold MD [address] [place] [address] PCP - [facility]06/11/24Team MemberRelationshipSpecialtyStart DateEnd Date Abdifatah Brady (Historical) PCP - General05/21/13am MemberRelationshipSpecialtyStart DateEnd Date Abdifatah Brady (Historical) PCP - General05/21/13am MemberRelationshipSpecialtyStart DateEnd Date Corine Gold MD [address], [place] [address] PCP - GeneralInternal Medicine03/25/24Team MemberRelationshipSpecialtyStart Date End Date Corine Gold MD [address], [address] [address] PCP - [facility]03/25/24Te MemberRelationshipSpecialtyStart Date End Date Corine Gold MD [address], [place] [address] PCP - [facility]03/25/24 MemberRelationshipSpecialtyStart Date End Date Corine Gold MD [address], [place] [address] PCP - GeneralInternal Medicine03/25/24Team MemberRelationshipSpecialtyStart Date End Date Corine Gold MD [address], [place] [address] PCP - GeneralInternal Medicine03/25/24am MemberRelationshipSpecialtyStart Date End Date Lamont Blair MD [facility]/ Unallocated, Arlen Davalos MD [address] [place] [address] PCP - GeneralFatxly Medicine Lamont Blair MD [address] [place] [address] PCP - [facility]05/21/2510Team MemberRelationshipSpecialtyStart Date End Date Corine Gold MD [address] [facility] [address] [place], [place] [address] PCP - GeneralInternal Medicine03/25/24 Inactive Administered Medications - up to 3 most recent administrations Administered Medications (un recognized section and content) Medication OrderMAR ActionAction DateDoseRateSite cyproheptadine 4 mg tab(s) (PERIACTIN) 4 mg, ORAL, ONCE, 1 dose, On Mon04/12/23 at 1130 Given04/12/2023 12:24 PM EST4 mg diphenhydrAMINE 25 mg injection (BENADRYL) 25 mg, INTRAVENOUS, NEEDED, 2 doses, Starting on Mon04/12/23 at 1103, Until Mon04/12/23 at 1559,Sedation/Dystonia/Akathisia/Anxiety 3rd line Given04/12/2023 11:43 AM EST25 mg keTORolac 30 mg injection (Toradol) 30 [...] INSTEAD of the opioid, if preferred: N/A Given04/12/2023 11:42 AM EST30 mg magnesium sulfate 2 g in NaCl 0.9% 250 mL 2 g, INTRAVENOUS, at 125-250 mL/hr, Administer over 1-2 Hours, ONCE, 1 dose, On Mon04/12/23 at 1130, Magnesium Sulfate IV bolus will be infused at a rate of 1 gram/hr. The following care areas mayadminister a magnesium sulfate bolus at a rate of 2 grams/hr if necessary: 1) ICUs/PACU/ED 2) AdultHematology/Oncology 3) Labor and Delivery 4) Cardiac Step Down 5) Headache Clinic The following c are areas may administer a magnesium sulfate bolus at a rate of GREATER than 2 grams/hr if necessary: 1) Adult and Pediatric Asthma Exacerbations 2) Torsade de Pointes 3) Pediatric BMT and Hematology/Oncology 4) Eclampsia or Preeclampsia New Bag/Syringe/Nqlebp8204/12/2023 12:24 PM EST2 g280 mL/hr methocarbamol iv infusion 1,000 mg in NaCl 0.9% 100 mL (ROBAXIN) 1,000 mg, INTRAVENOUS, Administer over 30 Minutes, ONCE, 1 dose, On Mon04/12/23 at 1130, AdministerIV while in recumbent position. Maintain position for at least 10-15 minutes following infusion. New Bag/Syringe/Bkckkc3804/12/2023 11:50 AM EST1,000 mg NaCl 0.9% 1,000 mL iv bolus 1,000 mL, INTRAVENOUS, at 999 mL/hr, Administer over 1 Hours, ONCE, 1 dose, On Mon04/12/23 at 1130 New Bag/Syringe/Oegmwk9704/12/2023 11:30 AM EST1,000 mL999 mL/hr promethazine 25 mg tab(s) (PHENERGAN) 25 mg, ORAL, EVERY 4 HOURS NEEDED, 2 doses, Starting on Mon04/12/23 at 1103, Until Mon04/12/23 at 1559, Nausea/Vomiting - First Line - Enteral Given04/12/2023 11:42 AM EST25 mgMedication OrderMAR ActionAction DateDoseRate Site cyproheptadine 4 mg tab(s) (PERIACTIN) 4 mg, ORAL, ONCE, 1 dose, On Meg 04/13/23 at 0830 Given04/13/2023 10:36 AM EST4 mg diphenhydrAMINE 25 mg injection (BENADRYL) 25 mg, INTRAVENOUS, NEEDED, 2 doses, Starting on Meg 04/13/23 at 0819, Until Meg 04/13/23 at 1315,Sedation/Dystonia/Akathisia/Anxiety 3rd line Given04/13/2023 9:04 AM EST25 mg keTORolac 30 mg injection (Toradol) 30 [...] INSTEAD of the opioid, if preferred: N/A Given04/13/2023 9:09 AM EST30 mg magnesium sulfate 2 g in NaCl 0.9% 250 mL 2 g, INTRAVENOUS, at 125-250 mL/hr, Administer over 1-2 Hours, ONCE, 1 dose, On Meg 04/13/23 at 0830, Magnesium Sulfate IV bolus will be infused at a rate of 1 gram/hr. The following care areas mayadminister a magnesium sulfate bolus at a rate of 2 grams/hr if necessary: 1) ICUs/PACU/ED 2) AdultHematology/Oncology 3) Labor and Delivery 4) Cardiac Step Down 5) Headache Clinic The following c are areas may administer a magnesium sulfate bolus at a rate of GREATER than 2 grams/hr if necessary: 1) Adult and Pediatric Asthma Exacerbations 2) Torsade de Pointes 3) Pediatric BMT and Hematology/Oncology 4) Eclampsia or Preeclampsia New Bag/Syringe/Igcwqv2104/13/2023 9:46 AM EST2 g250 mL/hr methocarbamol iv infusion 1,000 mg in NaCl 0.9% 100 mL (ROBAXIN) 1,000 mg, INTRAVENOUS, Administer over 30 Minutes, ONCE, 1 dose, On Meg 04/13/23 at 0830, AdministerIV while in recumbent position. Maintain position for at least 10-15 minutes following infusion. New Bag/Syringe/Dpnxld1104/13/2023 9:12 AM EST1,000 mg NaCl 0.9% 1,000 mL iv bolus 1,000 mL, INTRAVENOUS, at 999 mL/hr, Administer over 1 Hours, ONCE, 1 dose, On Mon04/13/23 at 0830 New Bag/Syringe/Ngywbr3704/13/2023 8:53 AM EST1,000 mL999 mL/hr promethazine 25 mg tab(s) (PHENERGAN) 25 mg, ORAL, EVERY 4 HOURS NEEDED, 2 doses, Starting on Mon04/13/23 at 0819, Until Mon04/13/23 at 1315, Nausea/Vomiting - First Line - Enteral Given04/13/2023 9:03 AM EST25 mgMedication OrderMAR ActionAction DateDoseRate Site diphenhydrAMINE 25 mg injection (BENADRYL) 25 mg, INTRAVENOUS, NEEDED, 2 doses, Starting on Mon04/14/23 at 0819, Until Mon04/14/23 at 0928,Sedation/Dystonia/Akathisia/Anxiety 3rd line Given04/14/2023 9:28 AM EST25 uxFavia1404/14/2023 8:46 AM EST25 mg keTORolac 30 mg injection (Toradol) 30 [...] INSTEAD of the opioid, if preferred: N/A Given04/14/2023 8:49 AM EST30 mg magnesium sulfate 2 g in NaCl 0.9% 250 mL 2 g, INTRAVENOUS, at 125-250 mL/hr, Administer over 1-2 Hours, ONCE, 1 dose, On Mon04/14/23 at 0830, Magnesium Sulfate IV bolus will be infused at a rate of 1 gram/hr. The following care areas mayadminister a magnesium sulfate bolus at a rate of 2 grams/hr if necessary: 1) ICUs/PACU/ED 2) AdultHematology/Oncology 3) Labor and Delivery 4) Cardiac Step Down 5) Headache Clinic The following c are areas may administer a magnesium sulfate bolus at a rate of GREATER than 2 grams/hr if necessary: 1) Adult and Pediatric Asthma Exacerbations 2) Torsade de Pointes 3) Pediatric BMT and Hematology/Oncology 4) Eclampsia or Preeclampsia New Bag/Syringe/Dwvwzt5304/14/2023 10:07 AM EST2 g250 mL/hr methocarbamol iv infusion 1,000 mg in NaCl 0.9% 100 mL (ROBAXIN) 1,000 mg, INTRAVENOUS, Administer over 30 Minutes, ONCE, 1 dose, On Mon04/14/23 at 0830, AdministerIV while in recumbent position. Maintain position for at least 10-15 minutes following infusion. Zwnqzrcii39/23/2024 9:30 AM ESTNew Bag/Syringe/Acfpou4104/14/2023 8:53 AM EST1,000 mg NaCl 0.9% 1,000 mL iv bolus 1,000 mL, INTRAVENOUS, at 999 mL/hr, Administer over 1 Hours, ONCE, 1 dose, On Mon04/14/23 at 0830 Ilqnezsaw60/23/2024 9:30 AM XPU164 mL/hrNew Bag/Syringe/Txckey1804/14/2023 8:53 AM EST1,000 mL999 mL/hr prochlorperazine 10 mg injection (COMPAZINE) 10 mg, INTRAVENOUS, NEEDED, 1 dose, Starting on Mon04/14/23 at 1019, Until Mon04/14/23 at 1028, Nausea/Vomiting - Second Line - Parenteral, IV push over 2- 5 minutes. If prochlorperazine PO order also exists, use prochlorperazine IV when patient is unable to tolerate PO. Protect From Light Given04/14/2023 10:28 AM EST10 mg promethazine 25 mg tab(s) (PHENERGAN) 25 mg, ORAL, EVERY 4 HOURS NEEDED, 2 doses, Starting on Mon04/14/23 at 0819, Until Mon04/14/23 at 1351, Nausea/Vomiting - First Line - Enteral Given04/14/2023 8:45 AM EST25 mg FOR RECORDS PERTAINING TO PATIENTS WHO [...] BE BASED ON THE PRIMARY CLINICAL RECORDS. [employer] [facility]. provides no warranty or guarantee of the accuracy or completeness of information in this document.
--- NOTE | 2024-12-26 09:59 | ED.GENADUL1 ---
HPI HPI - General Adult General Chief complaint: Headache Stated complaint: MIGRAINE Time Seen by Provider: 12/26/24 09:59 Source: patient Mode of arrival: walk-in Limitations: no limitations History of Present Illness HPI narrative: The patient is a 29-year-old female with history of migraine presenting to the ER after she had infusion of Vyepti for migraine last week and apparently has been having headaches since then According to the patient she was told that this is normal after the infusion and they are increasing the amount that she is getting with time The patient is complaining of frontal headache associate with photosensitivity and nausea No other concerns Related Data Home Medications ?Medication ?Instructions ?Recorded ?Confirmed diazepam 10 mg tablet 5 mg PO QID PRN seizures 07/20/22 09/09/24 epinephrine 0.3 mg/0.3 mL 0.3 mg IM Q10M PRN anaphylaxis 07/20/22 09/09/24 injection, auto-injector diphenhydramine HCl 25 mg capsule 75 mg PO Q6H PRN migraine headache 01/26/23 09/09/24 (Benadryl) albuterol sulfate 90 mcg/actuation 2 puff inhalation Q4H PRN 08/16/23 08/16/24 aerosol inhaler shortness of breath or wheezing magnesium oxide 400 mg (241.3 mg 400 mg PO .qhs 08/16/23 09/09/24 magnesium) tablet zolmitriptan 5 mg nasal spray 1 spray intranasal Q2H PRN headache 08/16/23 09/09/24 amitriptyline 100 mg tablet 50 mg PO DAILY 07/26/24 09/09/24 Previous Rx's ?Medication ?Instructions ?Recorded amoxicillin 500 mg capsule 500 mg PO TID 10 days #30 caps 09/24/24 Allergies Allergy/AdvReac Type Severity Reaction Status Date / Time dihydroergotamine Allergy Unknown Hives Verified 09/23/24 20:33 haloperidol (From Haldol) Allergy Unknown Hives Verified 12/01/24 03:46 vortioxetine Allergy Unknown Hives Verified 09/23/24 20:33 buspirone Allergy Hives Verified 09/23/24 20:33 carbamazepine Allergy Unknown Verified 09/23/24 20:33 levetiracetam (From Keppra) Allergy ITCHING Verified 09/23/24 20:33 azithromycin (From Zithromax) AdvReac Intermediate Hives Verified 09/23/24 20:33 bee venom protein (honey bee) AdvReac Intermediate Hives Verified 09/23/24 20:33 metoclopramide (From Reglan) AdvReac Intermediate panic Verified 09/23/24 20:33 adhesive tape AdvReac Mild Rash Verified 09/23/24 20:33 cephalexin (From Keflex) AdvReac Mild Hives Verified 09/23/24 20:33 dextromethorphan (From AdvReac Mild Unknown Verified 09/23/24 20:33 [place] DM) pyrilamine (From [place] DM) AdvReac Mild Unknown Verified 09/23/24 20:33 prochlorperazine (From AdvReac Anxiety Verified 09/23/24 20:33 Compazine) propranolol AdvReac Hives Verified 09/23/24 20:33 Opioid HPI Opioid Management Most Recent Opioid Data: Last Pain Scale 10 12/01/24, 03:43 Last ORT Total Score 0 08/16/23, 14:51 Last ORT Risk Category Low Risk 08/16/23, 14:51 Ur Phencyclidine Scrn, (NEGATIVE) Negative 08/16/23, 15:15 Review of Systems ROS Status of ROS 10 or more systems reviewed and unremarkable except as noted in history and below [facility] Medical History (Updated 12/26/24 @ 11:27 by Komal Damian MD) Chronic pain disorder ?G89.4 - Chronic pain syndrome (ICD-10) Migraine ?G43.909 - Migraine, unspecified, not intractable, without status migrainosus (ICD-10) Seizure disorder ?G40.909 - Epilepsy, unspecified, not intractable, without status epilepticus (ICD-10) Bipolar disorder ?F31.9 - Bipolar disorder, unspecified (ICD-10) Pelvic pain ?R10.2 - Pelvic and perineal pain (ICD-10) Bilateral occipital neuralgia ?M54.81 - Occipital neuralgia (ICD-10) Combative behavior ?R46.89 - Other symptoms and signs involving appearance and behavior (ICD-10) PCOS (polycystic ovarian syndrome) ?E28.2 - Polycystic ovarian syndrome (ICD-10) Mitral valve prolapse ?I34.1 - Nonrheumatic mitral (valve) prolapse (ICD-10) GERD (gastroesophageal reflux disease) ?K21.9 - Gastro-esophageal reflux disease without esophagitis (ICD-10) Depression ?F32.A - Depression, unspecified (ICD-10) Blood in urine ?R31.9 - Hematuria, unspecified (ICD-10) Acne ?L70.9 - Acne, unspecified (ICD-10) Dyspareunia Brain mass ?G93.89 - Other specified disorders of brain (ICD-10) Kidney stones ?N20.0 - Calculus of kidney (ICD-10) COVID-19 ?U07.1 - COVID-19 (ICD-10) Bronchitis ?J40 - Bronchitis, not specified as acute or chronic (ICD-10) Asthma ?J45.909 - Unspecified asthma, uncomplicated (ICD-10) Stress incontinence ?N39.3 - Stress incontinence (female) (male) (ICD-10) Dysuria ?R30.0 - Dysuria (ICD-10) Anxiety ?F41.9 - Anxiety disorder, unspecified (ICD-10) Surgical History H/O laparoscopy (07/21/22) ?Z98.890 - Other specified postprocedural states (ICD-10) S/P RAVI-BSO ?Z90.710 - Acquired absence of both cervix and uterus (ICD-10) ?Z90.722 - Acquired absence of ovaries, bilateral (ICD-10) ?Z90.79 - Acquired absence of other genital organ(s) (ICD-10) Hx laparoscopic cholecystectomy ?Z90.49 - Acquired absence of other specified parts of digestive tract (ICD-10) H/O: ?Z98.891 - History of uterine scar from previous surgery (ICD-10) History of appendectomy ?Z90.49 - Acquired absence of other specified parts of digestive tract (ICD-10) Family History Other Acid reflux Acute renal disease Afib Chromosomal disorder Delayed developmental milestones Diabetes Family history of hypertension High cholesterol Neuro-irritability due to autonomic dysfunction 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 General: Well-appearing and in no apparent distress. Skin: Warm, dry, no pallor noted. No rash. Head: Normocephalic, atraumatic. Neck: Supple, non-tender. Cardiovascular: Regular Rate and Rhythm without murmur, gallop or rub. Respiratory: No accessory muscle use or respiratory distress. Lungs are clear to auscultation, no wheezing, rales or rhonchi Chest Wall: no tenderness Back: No midline thoracic or lumbar vertebral tenderness. No CVA tenderness Musculoskeletal: normal ROM, no calf or popliteal tenderness, no lower extremity edema/swelling GI: Abdomen is soft, non-distended. Normal bowel sounds. No masses appreciated. No tenderness to palpation. No rebound, guarding, or rigidity noted. Neurological: A&O x4. No cranial nerve dysfunction observed. No truncal ataxia. Moves all extremities. Sensation intact. Psychiatric: Cooperative and interactive. Normal mood and affect. Constitutional Vital Signs, click to edit/add: Last Vital Signs Temp 98.2 F 12/26/24 09:48 Pulse 93 H 12/26/24 09:48 Resp 16 12/26/24 09:48 BP 119/80 12/26/24 09:48 Pulse Ox 96 12/26/24 09:48 O2 Del Method Room Air 12/26/24 09:48 Course Vital Signs Vital signs: Vital Signs Temperature 98.2 F 12/26/24 09:48 Pulse Rate 93 H 12/26/24 09:48 Respiratory Rate 16 12/26/24 09:48 Blood Pressure 119/80 12/26/24 09:48 Pulse Oximetry 96 12/26/24 09:48 Oxygen Delivery Method Room Air 12/26/24 09:48 Temperature 98.2 F 12/26/24 09:48 Pulse Rate 93 H 12/26/24 09:48 Respiratory Rate 16 12/26/24 09:48 Blood Pressure 119/80 12/26/24 09:48 Pulse Oximetry 96 12/26/24 09:48 Oxygen Delivery Method Room Air 12/26/24 09:48 Medical Decision Making MDM Narrative Medical decision making narrative: IV access obtained using the ultrasound and the left upper extremity 18-gauge The patient was provided with IV medication mostly Benadryl Zofran and Toradol The patient then was feeling much better and she was discharged The patient to follow-up with the primary care within 2 to 3 days and to come back to the ER in case of any worsening of the current symptoms or any new symptoms or concerns Discharge Plan Discharge Chief Complaint: Headache Clinical Impression: Intractable headache Patient Disposition: Home, Self-Care Time of Disposition Decision: 11:27 Condition: Good Mode of Transportation: Private Vehicle Prescriptions / Home Meds: No Action diazepam 10 mg tablet 5 mg PO QID PRN (Reason: seizures) epinephrine 0.3 mg/0.3 mL auto-injector 0.3 mg IM Q10M PRN (Reason: anaphylaxis) Rx Instructions: for 2 doses albuterol sulfate 90 mcg/actuation HFA aerosol inhaler 2 puff INHALATION Q4H PRN (Reason: shortness of breath or wheezing) magnesium oxide 400 mg (241.3 mg magnesium) tablet 400 mg PO .qhs zolmitriptan 5 mg spray,non-aerosol 1 spray INTRANASAL Q2H PRN (Reason: headache) Rx Instructions: May repeat once if needed after =2 hours diphenhydramine HCl [Benadryl] 25 mg capsule 75 mg PO Q6H PRN (Reason: migraine headache) amitriptyline 100 mg tablet 50 mg PO DAILY amoxicillin 500 mg capsule 500 mg PO TID 10 Days Qty: 30 0RF Print Language: Wolof Instructions: Acute Headache (DC) Referrals: Corine Gold ND [Primary Care Provider] - 1 week Discharge Date/Time: 12/26/24 11:31
[2024-12-26] MEDS: DIPHENHYDRAMINE HCL 50 MG/ML VIAL 25 MG IVP (10:39)
[2024-12-26] MEDS: KETOROLAC TROMETHAMINE 30 MG/ML VIAL IVP (10:39)
== END 2024-12-26 11:31 | disposition home or self-care (01) ==
PROVIDERS: Emergency Provider Emergency Medicine; PCP Student in an Organized Health Care Education/Training Program
DX: R51.9 Headache, unspecified (principal)
CPT/HCPCS: 96374; 96375; 99284; J1200; J1885; J2405

== ENCOUNTER 2024-12-29 13:00 | Emergency (ER) | payer OTHER, SELFPAY ==
--- OUTSIDE RECORDS SUMMARY | 2023-07-05 04:30 | XMS_ITS ---
Author Organization The [facility] in [place] Address [address] [place] [address] Care Team Providers Care Senior Clinical Project Manager Name Role Phone Johnnie MORENO, Lamont Primary Care Provider Unavailab mirna Juan Heraclio Unavailable [phone] REASON FOR VISIT 1MO-ASTHMA Encounters Encounter Location Date Provider Diagnosis Pulmonary Medicine [address] [address] 07/05/2023 Heraclio Jason Plan Of Treatment No Information Progress Notes * Coni NICHOLSON LDOB:[birth year] (29 yo F)Acc No.[id number]:07/05/2023 UNLOCKED PROGRESS NOTE Follow Up Patient: Coni FRAGA :?Heraclio Juansa DODOB:1995???Age:27 Y ???Sex:FemaleDate:4Phone:[phone]:[address] [place], [place] [address], [place]Hdg:Lamont Blair MD Subjective: * Chief Complaints: * 1 . 1MO-ASTHMA. * Medical History: Objective: * Vitals: Assessment: Plan: * Treatment: * * Electronic signature of Heraclio Jason DO on 12/29/2024 at 01:11 PM ESTSign off status: PendingVisit Status:?N/S N/C (No Show/No Charge) * Provider: Michael Jason DO Date: 0 07/05/2023 Generated for Printing/Faxing/eTransmitting on:?12/29/2024 01:11 PM EST
--- OUTSIDE RECORDS SUMMARY | 2024-12-17 08:30 | XMS_ITS | Encounter Summary ---
Author Organization [facility] tem Address [facility]-[id number] [address] [place] [address] Care Team Providers Care Public Speaker Name Role Phone Corine Gold MD Primary Care Provider [phone] Reason for Referral * Medication Prior Authorization - AuthorizedSpecialtyDiagnoses / Procedures Referred By ContactReferred To Contact Diagnoses Moderate persistent asthma without complication Mariah Peña DO [address] [address] Phone: tel: fax: Referral IDStatusReasonStart DateExpiration DateVisits RequestedVisits [id number]/28/202510/27/202611 * Consultation (Routine) - Pending ReviewSpecialtyDiagnoses / ProceduresReferred By ContactReferred To ContactGastroenterology Diagnoses Gastroesophageal reflux disease without esophagitis Mariah Peña DO [address] [address] Phone: tel: fax: [facility] Department of [address] [address] Phone: tel: fax: Referral IDStatusReasonStart DateExpiration DateVisits RequestedVisits [id number] Review Specialty Services Required Reason for Visit * ReasonCommentsFollow-upCoughReports d/t allergiesnonproductiveWheezingReports morning, night and through the dayShortness of BreathReports with exertion/activity Encounter Details DateTypeDepartmentCare Team (Latest Contact Info)Oovemimhyyq45/28/2025 9:30 AM EDTOffice Visit [facility] [address] [phone] Mariah Peña DO [address] [address] Moderate persistent asthma without complication (Primary Dx); Gastroesophageal reflux disease without esophagitis; Environmental allergies Social History Tobacco UseTypesPacks/DayYears UsedDateSmoking Tobacco: NeverSmokeless Tobacco: Never Tobacco Cessation:Counseling Given: Not Answered Alcohol UseStandard Drinks/WeekCommentsNot Currently0 (1 standard drink = 0.6 oz pure alcohol)socialReadyforce UtilitiesAnswerDate RecordedIn the past 12 months has the [employer], gas, oil, or water [employer] threatened to shut off services in your home?No04/08/2024UDIT-CAnswerDate RecordedQ1: How often do you have a drink containing alcohol?Monthly or less04/08/2024Q2: How many drinks containing alcohol do you have on a typical day when you are drinking?1 or Q3: How often do you have six or more drinks on one occasion?Never04/08/2024Overall Financial Resource Strain (CARDIA)AnswerDate RecordedHow hard is it for you to pay for the very basics like food, housing, medical care, and heating?Not hard at all04/08/2024PHQ-2AnswerDate RecordedTotal Ybqqh849PRAPARE - TransportationAnswerDate RecordedIn the past 12 months, has lack of transportation kept you from medical appointments or from getting medications?No 04/08/2024In the past 12 months, has lack of transportation kept you from meetings, work, or from getting things needed for daily living?No04/08/2024 Housing InstabilityAnswerDate RecordedAre you worried or concerned that in the next two months you may not have stable housing that you own, rent or stay in as a part of a household?No5ChildcareAnswerDate RecordedChildcareUnknown 08/01/2018EmploymentAnswerDate RxbsncgaOotlrayeesNhepzfz37/12/2019Hunger ScreeningAnswerDate RecordedWithin the past 12 months we worried whether our food would run out before we got money to buy more.Never True12/10/2024Within the past 12 months the food we bought just didn't last and we didn't have money to get more.Never True12/10/2024Purpose - LifeAnswerDate RecordedPurpose and direction in kjsmIvgbyst42/12/2021CommentsNoSex and Gender Information ValueDate RecordedSex Assigned at BirthNot on fileLegal HvxXvbmkz93/06/2015 11:52 AM EDTGender IdentityNot on fileSexual OrientationNot on filedocumented as of this encounter Last Filed Vital Signs Vital SignReadingTime TakenCommentsBlood Mohhhxsl871/7612/17/2024 9:30 AM EDT Bbpvr855712/17/2024 9:30 AM EDTTemperature--Respiratory Rate--Oxygen Owhsegyyrq01% 12/17/2024 9:30 AM EDTInhaled Oxygen Concentration--Azajmb431 kg (277 lb 12.5 oz)12/17/2024 9:30 AM OVIJcasro004.9 cm (5' 1 )12/17/2024 9:30 AM EDTBody Mass Index52.4912/17/2024 9:30 AM EDTdocumented in this encounter Progress Notes * Mariah Peña, DO - 12/17/2024 9:30 AM EDT Images from the original note were not included. [facility] Progress Note Patient - Coni Nicholson Age - 29 y.o. 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 Would not be advised for her to have a dog was in the home She has air purifier in the home Continue Trelegy 200, p.r.n. albuterol and albuterol HFA. Will add Pulmicort nebulizer solution 1 mg nebulized in the evening during time periods of increased symptoms to help control and avoid oral steroids Patient would benefit from immunotherapy for her asthma. Discussed again Dupixpatrick. She qualifies based off of ongoing exacerbations, eosinophilia, poorly controlled asthma despite max therapy with triple inhaler agent. Encouraged to proceed with sleep study evaluation. She has already put herself on the cancellation list to try to expedite Questions answered regarding bariatric surgery. Would expect that weight loss would significantly improved sleep, asthma symptoms and her GERD It does seem as though her uncontrolled reflux is contributing to her asthma poor control as well. Will increase from omeprazole 40 daily to b.i.d. and referred to GI. Reminded of outstanding CT scan of the chest. This would still be recommended. If she does have evidence of bronchiectasis, will need sweat chloride testing and possible full genetic sequencing for cystic fibrosis Continue Zyrtec. Not good candidate for Singulair given mood disorders All questions answered to her satisfaction Will complete paperwork for Robert today Follow-up in 3 months at [place] office OSMANI Sandie presents for follow-up of her eosinophilic asthma. She was a new patient back in Marchand was requested for an 8 week follow-up which did not occur. We had an extensive visit last office and had increased her Trelegy to the 200 dose. We had also continued her on Singulair and recommended addition of Zyrtec. She has poorly controlled acid reflux which was reviewed at last office visit and we advised to increase her omeprazole to 40 mg daily and to consider taking this 30 minutes prior to her evening meal as this was more substantial at night. She was also given albuterol aerosolssolution with her own dosing as she was previously using her daughter's pediatric dose. We had alsodiscussed briefly her candidacy for biologic agents such as Dupixent pending laboratory review and follow-up after her impending surgery that was expected at that last office visit. Allergen panel, IgE level and alpha-1 antitrypsin phenotype was ordered. CT scan of the chest was also ordered but not done Since last office visit she has had multiple rounds of antibiotics. She was on amoxicillin several times September through October. She was on Augmentin many times in March and May. She has had prednisone burst in May and then again in October. I am unable to see where she has filled any maintenance inhaler with [facility] and only see prescriptions for albuterol aerosols solution that are being filled on med review. She does report consistent use and that she has been getting regular fills from [facility]. She does also note that her youngest daughter does had a confirmation diagnosis ofcystic fibrosis. Her other daughter has PCD diagnosis VITALS Ht 154.9 cm (5' 1 ) Wt 126 kg (277 lb 12.5 oz) LMP (LMP Unknown) BMI 52.49 kg/m?? Exam General: Alert, oriented, no acute distress, nontoxic, well nourished HEENT: Moist mucosal membranes, no oral lesions or oral thrush, trachea midline Chest: Clear to auscultation bilaterally without any crackles, wheezes, rhonchi. Normal AP diameter. CV: Regular rate regular rhythm Extremities: No edema, erythema, distal cyanosis, clubbing Integumentary: Warm and dry. No rash or lesion Neuro: No lateralizing deficits. No tremors Meds Medications Reviewed. Lab Results PFT Results Radiology XR CHEST 1 VW Mar 2024 History: Short of breath. One view study. Comparison: 01/23/2024 Impression: * Lungs are now clear. No focal airspace disease or infiltrate is appreciated. No acute process is seen. Dr. Mariah Peña DO. [facility] Office: [phone] documented in this encounter Plan of Treatment DateTypeDepartmentCare Team (Latest Contact Info)Oqxddwqbenj12/18/2025 3:15 PM ESTOffice Visit [facility] [address] [place] [phone] Corine Gold MD [address] [place], [place] [id number] 01/30/2025 8:00 PM ESTClinical Support [facility] - [facility] Disorders [address] [place] [phone] Corine Gold MD [address] [place], [place] [id number] 02/27/2025 8:00 PM ESTClinical Support [facility] [address] [place] [phone] Corine Gold MD [address] [place], [place] [id number] 03/25/2025 9:45 AM ESTOffice Visit [facility] [address] [phone] Mariah Peña DO [address] [address] NameTypePriorityAssociated DiagnosesOrder ScheduleProMedica Physicians Digestive [place], OHOutpatient ReferralRoutine Gastroesophageal reflux disease without esophagitis 1 Occurrences starting 12/17/2024 until 12/17/2025documented as of this encounter Goals GoalPatient Goal TypeAssociated ProblemsRecent ProgressPatient-Stated?Author home Tamiko Thompson, PRATIBHA Note: Evaluation of progress towards goal: Patient stated goal is to return home with [facility] for assistance with wound care documented as of this encounter Visit Diagnoses Diagnosis Moderate persistent asthma without complication- Primary Gastroesophageal reflux disease without esophagitis Esophageal reflux Environmental allergies Other allergy, other than to medicinal agents documented in this encounter Additional Health Concerns AssessmentNoted TimePHQ-9 Depression Total Score: 2:59 PM EDT documented as of this encounter Care Teams Team MemberRelationshipSpecialtyStart DateEnd Date Corine Gold MD [address], [facility] [place] [address] PCP - GeneralInternal Medicine03/25/24documented as of this encounter
--- OUTSIDE RECORDS SUMMARY | 2024-12-20 09:00 | XMS_ITS | Encounter Summary ---
Author Organization [facility] Get Smart Content [facility] tem Address [facility] [place]-[id number] [address] [place] [address] Care Team Providers Care Grid Maker Name Role Phone Corine Gold MD Primary Care Provider [phone] Reason for Referral * Medication Prior Authorization - ClosedSpecialtyDiagnoses / ProceduresReferred By ContactReferred To Contact Diagnoses Moderate persistent asthma without complication Saba Carter APRN-CNP [address] [facility] [place] [address] Phone: tel: fax: Referral IDStatusReasonStart DateExpiration DateVisits RequestedVisits [id number] Reason for Visit * ReasonCommentsEye ProblemBurning and watering, pain with touch. Encounter Details DateTypeDepartmentCare Team (Latest Contact Info)Oplagajgimg96/31/2025 10:00 AM EDTOffice Visit [facility] Family [facility] [address] [place] [address] [place] [address] Saba Carter APRN-CNP [address] [place] [address] Moderate persistent asthma without complication (Primary Dx); Watery eyes; Seasonal allergic rhinitis, unspecified trigger Social History Tobacco UseTypesPacks/DayYears UsedDateSmoking Tobacco: NeverSmokeless Tobacco: NeverAlcohol UseStandard Drinks/WeekCommentsNot Currently0 (1 standard drink = 0.6 oz pure alcohol)[facility] UtilitiesAnswerDate RecordedIn the past 12 months has the electric, gas, oil, or water company threatened [...] care, and heating?Not hard at all04/08/2024PHQ-2AnswerDate RecordedTotal [id number] - TransportationAnswerDate RecordedIn the past 12 months, [...] stay in as a part of a household?No04/08/2024hildcareAnswerDate RecordedChildcareUnknown 08/01/2018EmploymentAnswerDate UmbyiiaaCyxyauekqbMhnsvge82/12/2019Hunger ScreeningAnswerDate RecordedWithin the past 12 months we worried whether our food would run out before we got money to buy more.Never True12/20/2024Within the past 12 months the food we bought just didn't last and we didn't have money to get more.Never True12/20/2024Purpose - LifeAnswerDate RecordedPurpose and direction in eoxkNqrahgo88/12/2021CommentsNoSex and Gender Information ValueDate RecordedSex Assigned at BirthNot on fileLegal MohEicfim00/06/2015 11:52 AM EDTGender IdentityNot on fileSexual OrientationNot on filedocumented as of this encounter Last Filed Vital Signs Vital SignReadingTime TakenCommentsBlood Ipgacval008/7812/20/2024 10:01 AM EDT Mtmpe97766/31/2025 10:01 AM BTGWsejuhjuvio71.6 ??C (97.9 ??F)12/20/2024 10:01 AM EDTRespiratory Rate--Oxygen Youibtyuhl40%12/20/2024 10:01 AM EDTInhaled Oxygen Concentration--Fpclgd090.5 kg (283 lb 6.4 oz)12/20/2024 10:01 AM KTSYinjwu687.9 cm (5' 0.98 )12/20/2024 10:01 AM EDTBody Mass Index53.5812/20/2024 10:01 AM EDT documented in this encounter Patient Instructions * Attachments The following attachments cannot be sent through Care Everywhere. * Olopatadine (Ophthalmic) (Montenegrin) documented in this encounter Progress Notes * Saba Carter, WATERPROOF COATING MACHINE TENDER-DISEASE INTERVENTION SPECIALIST - 12/20/2024 10:00 AM EDT Subjective Patient ID: Coni Nicholson is a 29 y.o. female. Chief Complaint Chief Complaint Patient presents with Eye Problem Burning and watering, pain with touch. HPI Eye Drainage This is a new (gets exacerbation of asthma during this period) problem. The current episode startedmore than 1 month ago. The problem occurs constantly. The problem has been gradually worsening. Associated symptoms include congestion and coughing. Pertinent negatives include no abdominal pain, chest pain, fatigue, fever, headaches, myalgias, nausea, neck pain, sore throat, vomiting or weakness. Associated symptoms comments: Redness, crust in the morning, swollen eyes and swollen surrounding skin of the eyes. . Exacerbated by: Has multiple allergy exacerbation. Has history of allergies which is worse during this type of weather. Treatments tried: tried an eye drop in the past, it made her eye very dry and did not work. The treatment provided no relief. Cough This is a new (States that she gets Claritin D during exacerbation of her allergies.) problem. The current episode started in the past 7 days. The problem has been gradually worsening. The cough is Non-productive. Associated symptoms include eye redness, nasal congestion, postnasal drip, rhinorrhea, shortness of breath and wheezing. Pertinent negatives include no chest pain, ear congestion, ear pain, fever, headaches, myalgias, sore throat, sweats or weight loss. Associated symptoms comments: Chest tightness, wheezing. The symptoms are aggravated by cold air and lying down. She has tried OTC inhaler (patient wants to try a different inhlaer. States that her albuterol inhaler got blown up inthe machine. She is also taking Trelegy and singulair.) for the symptoms. The treatment provided norelief. Her past medical history is significant for asthma. There is no history of bronchiectasis, bronchitis, COPD, emphysema, environmental allergies or pneumonia. Active Problems Patient Active Problem List Diagnosis Encounter for observation of suspected anomaly not found Migraine with aura and without status migrainosus, not intractable Bilateral occipital neuralgia Moderate persistent asthma without complication Anxiety Depressive disorder Psychogenic nonepileptic seizure S/P bilateral salpingo-oophorectomy Abdominal wall cellulitis Postoperative surgical complication involving genitourinary system associated with genitourinary procedure Chronic migraine without aura without status migrainosus, not intractable Polycystic ovaries Eye infection, bilateral Ingrown nail of great toe Gastroesophageal reflux disease without esophagitis Environmental allergies Past Medical History Past Medical History: Diagnosis Date Anxiety Asthma BV (bacterial vaginosis) Depression Migraine 15 days out of the month-receives an infusion every 3 months MRSA (methicillin resistant Staphylococcus aureus) In a buttocks wound in 8th grade Ovarian cyst, bilateral 03/25/2024 Prolonged emergence from general anesthesia Seizure ([facility]) Last one 03-11-2024 Past Surgical History Past Surgical History: Procedure Laterality Date APPENDECTOMY SECTION CHOLECYSTECTOMY [facility] LYSIS OF ADHESIONS N/A 03/28/2024 Performed by Mundo Blackman MD at [facility] KADI5 LYSIS OF ADHESIONS N/A 03/28/2024 Performed by Jesse Sultana MD at [facility] DV5 SALPINGO OOPHORECTOMY/FROZEN SECTION Bilateral 03/28/2024 Performed by Mundo Blackman MD at [facility] DILATION AND CURETTAGE OF UTERUS PARTIAL HYSTERECTOMY 10/01/2021 TUBAL LIGATION Family History Family History Problem Relation Age of Onset Anesthesia problems Mother Prolonged emergence Cystic fibrosis Mother Anesthesia problems Father prolonged emergence Cystic fibrosis Father Ovarian cancer Maternal Aunt Social History Social History Socioeconomic History Marital status: Single [...] at all Food Insecurity: No Food Insecurity (12/20/2024) Hunger Screening Food Insecurity - Worry: Never True Food Insecurity - Inability: Never True Transportation Needs: No Transportation Needs (04/08/2024) PRAPARE - Transportation Lack of Transportation (Medical): No Lack of Transportation (Non-Medical): No Physical Activity: Insufficiently Active (01/23/2024) Received from [facility] Exercise Vital Sign On average, how many days per week do you engage in moderate to strenuous exercise (like a brisk walk)?: 7 days On average, how many minutes do you engage in exercise at this level?: 10 min Stress: Stress Concern Present (01/23/2024) Received from [facility] [employer] [place] [facility] [employer] [facility] - Occupational Stress Questionnaire Feeling of Stress : Rather much Social Connections: Socially Integrated (01/23/2024) Received from [facility] Social Connection and Isolation Panel In a typical week, how many times do you talk on the phone with family, friends, or neighbors?: More than three times a week How often do you get together with friends or relatives?: Twice a week How often do you attend buddhist or islam services?: More than 4 times per year Do you belong to any clubs or organizations such as buddhist groups, unions, fraternal or athletic groups, or school groups?: Yes How often do you attend meetings of the clubs or organizations you belong to?: More than 4 times per year Are you , , , , never , or living with a partner?: Living with partner Interpersonal Safety: Not At Risk (04/08/2024) Humiliation, Afraid, Rape, and Kick questionnaire Fear of Current or Ex-Partner: No Emotionally Abused: No Physically Abused: No Sexually Abused: No Housing Instability: Low Risk (04/08/2024) Housing Instability Housing Instability: No Allergies Allergies Allergen Reactions Amoxicillin Hives and Diarrhea Augmentin [Amoxicillin-Pot Clavulanate] Hives and Diarrhea Bee Venom Protein (Honey Bee) Anaphylaxis Adhesive [...] [Azithromycin] Hives Buspirone Hives Compazine [Prochlorperazine] Anxiety Eptinezumab-[facility] Itching and Rash Patient described extreme itching located on her chest and arms (bilaterally). Reglan [Metoclopramide Hcl] Itching and Anxiety No rash Current Medications Current Outpatient Medications Medication Sig Dispense Refill acetaminophen (TYLENOL EXTRA STRENGTH) 500 mg tablet Take 2 tablets (1,000 mg total) by mouth every6 (six) hours as needed for pain. 30 tablet 2 albuterol (PROVENTIL,VENTOLIN) 2.5 mg /3 mL (0.083 %) nebulizer solution Inhale 3 mL (2.5 mg total)by nebulization 4 (four) times a day as needed for wheezing. 360 mL 10 albuterol (VENTOLIN HFA) 90 mcg/actuation inhaler INHALE TWO PUFFS BY MOUTH EVERY 4 HOURS [id number] g 0 baclofen (LIORESAL) 10 mg tablet TAKE 1 TABLET BY MOUTH NIGHTLY 30 tablet 3 budesonide (PULMICORT) 1 mg/2 mL nebulizer solution Inhale 2 mL (1 mg total) by nebulization in themorning. 60 mL 6 carBAMazepine XR (TEGretol XR) 100 mg 12 hr tablet Take 2 tablets (200 mg total) by mouth in the morning and 2 tablets (200 mg total) before bedtime. 120 tablet 0 cetirizine (ZyrTEC) 10 mg tablet Take 1 tablet (10 mg total) by mouth in the morning. 30 tablet 0 diazePAM (VALIUM) 10 mg tablet Take 0.5 tablets (5 mg total) by mouth in the morning and at bedtime. EPINEPHrine (EPIPEN) 0.3 mg/0.3 mL auto-injector 0.3 mL (0.3 mg total) by other route as needed (exposure to allergen). 2 each 1 estradioL (ESTRACE) 1 mg tablet Take 1 tablet (1 mg total) by mouth in the morning. 30 tablet 3 fluticasone propionate (FLONASE) 50 mcg/actuation nasal spray administer 1 spray IN EACH NOSTRIL EVERY OTHER DAY 16 g 2 ztuldfdsplm-pgzvbtypc-crgcbptw (TRELEGY ELLIPTA) 200-62.5-25 mcg blister with device INHALE 1 PUFF BY MOUTH IN THE MORNING 60 each 11 ibuprofen (MOTRIN) 800 mg tablet Take 1 tablet (800 mg total) by mouth 3 (three) times a day. 21 tablet 0 ketoconazole (NIZORAL) 2 % shampoo Apply 1 Application topically 2 (two) times a week. Apply to damp skin, lather, leave on 5 minutes, and rinse 120 mL 0 lidocaine (XYLOCAINE) 5 % ointment Apply 1 Application topically as needed for pain. 35.44 g 0 lithium carbonate 300 mg tablet Take 2 tablets (600 mg total) by mouth nightly. loratadine (CLARITIN) 10 mg tablet Take 1 tablet (10 mg total) by mouth daily as needed for allergies. 90 tablet 1 mupirocin (BACTROBAN) 2 % ointment Apply 1 Application topically in the morning and 1 Application before bedtime. 22 g 1 omeprazole (PriLOSEC) 40 mg capsule Take 1 capsule (40 mg total) by mouth in the morning and at bedtime. 60 capsule 3 scopolamine (TRANSDERM-SCOP) 1 mg/[address] 1 patch on the skin every third day. traZODone (DESYREL) 300 MG tablet Take 1 tablet (300 mg total) by mouth nightly. ubrogepant (UBRELVY) 100 mg tablet levalbuterol (XOPENEX HFA) 45 mcg/actuation inhaler Inhale 1-2 puffs every 4 (four) hours as neededfor wheezing. 15 g 11 loratadine-pseudoephedrine (CLARITIN-D 24-hour) 10-240 mg per 24 hr tablet Take 1 tablet by mouth in the morning. 30 tablet 2 peg 400-propylene glycol, PF, (SYSTANE ULTRA, PF,) 0.4-0.3 % dropperette Administer 1 drop to both eyes 3 (three) times a day. 30 each 1 predniSONE (DELTASONE) 10 mg tablet Take 3 tablets once daily for 3 days, then 2 tablets once dailyfor 3 days then 1 tablet daily 19 tablet 0 white petrolatum-mineral oiL (SYSTANE NIGHTTIME) 94-3 % ointment Administer 1 Application (0.25 inches total) to both eyes nightly. 3.5 g 1 Current Facility-Administered Medications Medication Dose Route Frequency Provider Last Rate Last Admin diazePAM (VALIUM) tablet 5 mg 5 mg oral BID George Pisano MD Review of Systems Review of Systems Constitutional: Positive for activity change. Negative for appetite change, fatigue, fever, unexpected weight change and weight loss. HENT: Positive for congestion, postnasal drip, rhinorrhea and sneezing. Negative for dental problem, ear pain, hearing loss, sinus pain, sore throat, trouble swallowing and voice change. Eyes: Positive for discharge, redness and itching. Negative for photophobia and visual disturbance. Burning eyes Respiratory: Positive for cough, chest tightness, shortness of breath and wheezing. Negative for choking. Cardiovascular: Negative for chest pain, palpitations and leg swelling. Gastrointestinal: Negative for abdominal distention, abdominal pain, constipation, nausea and vomiting. Endocrine: Negative for cold intolerance, heat intolerance, polydipsia, polyphagia and polyuria. Genitourinary: Negative for difficulty urinating and dysuria. Musculoskeletal: Negative for back pain, myalgias, neck pain and neck stiffness. Skin: Negative. Negative for color change. Allergic/Immunologic: Negative for environmental allergies and food allergies. Neurological: Negative for dizziness, weakness and headaches. Hematological: Negative. Psychiatric/Behavioral: Negative for agitation, behavioral problems, dysphoric mood, sleep disturbance and suicidal ideas. The patient is not nervous/anxious. Objective Vitals BP 124/78 (BP Site: Left Arm, BP Postition: Sitting) Pulse 112 Temp 36.6 ??C (97.9 ??F) (Oral) Ht 154.9 cm (5' 0.98 ) Wt 128.5 kg (283 lb 6.4 oz) LMP (LMP Unknown) SpO2 96% BMI 53.58 kg/m?? Physical Exam Physical Exam Vitals and nursing note reviewed. Constitutional: Appearance: Normal appearance. HENT: Head: Normocephalic. Right Ear: Hearing, tympanic membrane, ear canal and external ear normal. No decreased hearing noted. No laceration, drainage, swelling or tenderness. No middle ear effusion. There is no impacted cerumen. Tympanic membrane is not injected, scarred, perforated, erythematous, retracted or bulging. Tympanic membrane has normal mobility. Left Ear: Hearing, tympanic membrane, ear canal and external ear normal. No decreased hearing noted. No laceration, drainage, swelling or tenderness. No middle ear effusion. There is no impacted cerumen. Tympanic membrane is not injected, scarred, perforated, erythematous, retracted or bulging. Tympanic membrane has normal mobility. Nose: Nose normal. No nasal tenderness, mucosal edema, congestion or rhinorrhea. Right Turbinates: Not enlarged, swollen or pale. Left Turbinates: Not enlarged, swollen or pale. Right Sinus: No maxillary sinus tenderness or frontal sinus tenderness. Left Sinus: No maxillary sinus tenderness or frontal sinus tenderness. Mouth/Throat: Mouth: Mucous membranes are moist. Pharynx: No pharyngeal swelling, oropharyngeal exudate, posterior oropharyngeal erythema, uvula swelling or postnasal drip. Tonsils: No tonsillar exudate or tonsillar abscesses. Eyes: General: Lids are normal. Extraocular Movements: Right eye: Normal extraocular motion and no nystagmus. Left eye: Normal extraocular motion and no nystagmus. Conjunctiva/sclera: Conjunctivae normal. Right eye: Right conjunctiva is not injected. Left eye: Left conjunctiva is not injected. Neck: Thyroid: No thyroid mass, thyromegaly or thyroid tenderness. Cardiovascular: Rate and Rhythm: Normal rate and regular rhythm. Pulses: Dorsalis pedis pulses are 2+ on the right side and 2+ on the left side. Posterior tibial pulses are 2+ on the right side and 2+ on the left side. Heart sounds: Normal heart sounds, S1 normal and S2 normal. Pulmonary: Effort: Pulmonary effort is normal. Breath sounds: Examination of the right-upper field reveals wheezing. Examination of the left-upperfield reveals wheezing. Wheezing present. No decreased breath sounds, rhonchi or rales. Comments: Slight scattered wheezing Abdominal: General: Bowel sounds are normal. Palpations: Abdomen is soft. Tenderness: There is no abdominal tenderness. There is no right CVA tenderness or left CVA tenderness. Musculoskeletal: Cervical back: Normal range of motion. Right lower leg: No edema. Left lower leg: No edema. Skin: General: Skin is warm. Neurological: Mental Status: She is alert and oriented to person, place, and time. Psychiatric: Attention and Perception: Attention and perception normal. Mood and Affect: Mood and affect normal. Speech: Speech normal. Behavior: Behavior normal. Behavior is cooperative. Thought Content: Thought content normal. Cognition and Memory: Cognition and memory normal. Judgment: Judgment normal. Assessment/Plan 1. Moderate persistent asthma without complication - levalbuterol (XOPENEX HFA) 45 mcg/actuation inhaler; Inhale 1-2 puffs every 4 (four) hours as needed for wheezing. Dispense: 15 g; Refill: 11 - loratadine-pseudoephedrine (CLARITIN-D 24-hour) 10-240 mg per 24 hr tablet; Take 1 tablet by mouth in the morning. Dispense: 30 tablet; Refill: 2 - predniSONE (DELTASONE) 10 mg tablet; Take 3 tablets once daily for 3 days, then 2 tablets once daily for 3 days then 1 tablet daily Dispense: 19 tablet; Refill: 0 2. Watery eyes - white petrolatum-mineral oiL (SYSTANE NIGHTTIME) 94-3 % ointment; Administer 1 Application (0.25 inches total) to both eyes nightly. Dispense: 3.5 g; Refill: 1 - peg 400-propylene glycol, PF, (SYSTANE ULTRA, PF,) 0.4-0.3 % dropperette; Administer 1 drop to both eyes 3 (three) times a day. Dispense: 30 each; Refill: 1 3. Seasonal allergic rhinitis, unspecified trigger - loratadine-pseudoephedrine (CLARITIN-D 24-hour) 10-240 mg per 24 hr tablet; Take 1 tablet by mouth in the morning. Dispense: 30 tablet; Refill: 2 No orders of the defined types were placed in this encounter. Patient seen for eye allergy and asthma symptoms, lost her inhaler Plan Will try systane eye drop for the allergy She can use systane eye ointment at night to prevent dry eye. Patient prefers to use ointment at night. Will try Xopenex inhaler and prednisone for asthma Will give her Claritin D for this period of exacerbation. Informed her to hold regular Claritin until she completes Claritin D. Continue the other inhalers. Side effects of prescribed medications reviewed with the patient. All the pertinent questions were answered. Patient noted to have elevated BMI and the following intervention(s) were applied: encouragement toexercise and prescribed diet education. Return if symptoms worsen or fail to improve, for asrthma and eye allergy. This note is created with the assistance of a speech recognition program. While intending to generate a document that actually reflects the content of the visit, the document can still have some errors including those of syntax and sound a like substitutions which may escape proof reading. It such instances, actual meaning can be extrapolated by contextual diversion. SARAHI Karimi 12/20/24 1320 documented in this encounter Plan of Treatment DateTypeDepartmentCare Team (Latest Contact Info)Tafapkvgwbu70/18/2025 3:15 PM ESTOffice Visit [facility] [address] [place] [phone] Corine Gold MD [address] [place] [place] [phone] 01/30/2025 8:00 PM ESTClinical Support [facility] [address] [place] [phone] Corine Gold MD [address] [place] [id number] 02/27/2025 8:00 PM ESTClinical Support [facility] [address] [facility] [place] [phone] Corine Gold MD [address] [facility] [place], [place] [phone] 03/25/2025 9:45 AM ESTOffice Visit [facility] [address] [phone] Mariah Peña, [address] [address] documented as of this encounter Goals GoalPatient Goal TypeAssociated ProblemsRecent ProgressPatient-Stated?Author home Tamiko Thompson RN Note: Evaluation of progress towards goal: Patient stated goal is to return home with [facility] for assistance with wound care documented as of this encounter Visit Diagnoses Diagnosis Moderate persistent asthma without complication- Primary Watery eyes Epiphora, unspecified as to cause Seasonal allergic rhinitis, unspecified trigger documented in this encounter Additional Health Concerns AssessmentNoted TimePHQ-9 Depression Total Score: 10:01 AM EDTA Body Mass Index follow-up plan has been documented for the tmiajqu1112/20/2024 1:20 PM EDTdocumented as of this encounter Care Teams Team MemberRelationshipSpecialtyStart DateEnd Date Corine Gold MD [address] [facility] [place], [place] [phone] PCP - GeneralInternal Medicine03/25/24documented as of this encounter
[2024-12-29] VITALS (15 sets, daily range): BP systolic 114–142; BP diastolic 76–103; PULSE 83–108; TEMP 36.8; O2SAT 94–96; BMI 52.3
--- OUTSIDE RECORDS SUMMARY | 2024-12-29 13:10 | XMS_ITS | Clinical Summary ---
Author Organization [facility] Address [address] [place] [id number] Care Team Providers Care Stocking And Box Shop Supervisor Name Role Phone Abdifatah Brady (Historical) Primary Care Provide r Unavailable Allergies Active AllergyReactionsCriticalityNoted DateCommentsAdhesive Tape-SiliconesRash 12/03/2021zithromycinOther: See Wflqhmpl23/14/2022ihydroergotamineIntolerance Nduuru9507/27/2022 Chest tightness, numbness and tingling in bilateral extremities, increased anxiety IysksnemyhLcbs75/14/1808NzbgukyfmmpmkLbwoeql16/22/2023rochlorperazine WjrzqpkslrtMew27/08/2024ropranololHives,Other: See Vgjaiwpo69/31/2021 Migrianes Pyrilamine-GjmkesdgkeesklptCvgzs84/18/4112FgwehyiwawtymvXhrjqdfqgox70/14/2022 XhunnjfjsdmyBswdf68/17/2022 Medications MedicationSigDispense QuantityRefillsLast FilledStart DateEnd DateStatus diazePAM [...] (ZOMIG) 5 mg nasal spray Use 1 [place] in the nose as needed at onset [...] chronic migraine without aura and without status tjhmjpsicpy68/30/2024hronic migraine without aura, with intractable migraine, so stated, with status imiytixepsy30/31/2024Intractable chronic migraine without aura and with status bvzqbkshgwu24/05/2023Seizure-like lsgfjsam12/10/2023sychogenic nonepileptic ixgulek2810/20/2021 Encounters DateTypeDepartmentCare DfrzRbjermymsjk80/09/2025Refill Neurology Headache [facility] [address] [place] [address] Griffin Lepe PA-C Refill Codeelo5812/13/2024 1:30 PM EDTOffice Visit Neurology [address] [id number] Griffin Lepe PA-C Intractable chronic migraine without aura and with status migrainosus (Primary Dx)12/13/2024 8:[facility] [address] [place] [address] Chronic migraine without aura, with intractable migraine, so stated, with status migrainosus (Primary Dx); Intractable chronic migraine without aura and with status ivwyogzxyrb73/23/2025 10:00 [facility] [address] [place] [address] Chronic migraine without aura, with intractable migraine, so stated, with status migrainosus (Primary Dx); Intractable chronic migraine without aura and with status gksgucfqfvw59/23/2025 9:00 AM EDTOffice Visit Neurology [address] [place] [address] Basil Cornelius DO Intractable chronic migraine without aura and without status migrainosus (Primary Dx); Cervicalgia; Chronic migraine without aura, with intractable migraine, so stated, with status migrainosus; Intractable chronic migraine without aura and with status inautmiworj25/23/2025 Patient Msg Neurology [address] [place] [address] Baisl Cornelius DO Zavzpret1 9:30 AM EDTInfusion Center Neurology [address] [place] [address] Intractable chronic migraine without aura and without status migrainosus (Primary Dx)11/26/2024 1:45 PM EDTDistance Health Neurology Headache [facility] [address] [place] [address] Raiza Morales APRN.DRIVE THRU ORDER TAKER Intractable chronic migraine without aura and with status hhadqomrepw69/07/2025 Patient Msg Neurology [address] [place] [address] Provider, [facility] Vyepti Dsrubsny67/07/3637Pbecyk26/27/2025Refill Neurology [address] [place] [address] Griffin Lepe PA-C Refill Requestfrom Last 3 Months Social History Tobacco UseTypesPacks/DayYears UsedDateSmoking Tobacco: NeverSmokeless Tobacco: Never Tobacco Cessation:Counseling Given: Not Answered PHQ-2AnswerDate RecordedPHQ-2 kszen909rea Deprivation IndexAnswerDate RecordedNational Score (1-100), lower number is lower ycwu805106/23/2022State Score (1-10), lower number is lower nghb8333Data from: https://www.neighborhoodatlas.[facility].edu/. Last address used for bylizufktup[address]CommentsNoSex and Gender Information ValueDate RecordedSex Assigned at BirthNot on fileLegal GigXxuaio81/01/2014 10:32 AM EDTGender IdentityNot on fileSexual OrientationNot on file Last Filed Vital Signs Vital SignReadingTime TakenCommentsBlood Yxdzecmm920/5910 10:29 AM EDT Oyvej7758/24/2025 10:29 AM BZYSmxuwlpuwdw80.3 ??C (97.3 ??F)01/19/2024 10:00 AM ESTRespiratory Itpe772704/01/2022 4:00 PM ESTOxygen Ogugctnclu90%01/22/2024 1:35 PM ESTon room airInhaled Oxygen Concentration--Cctwws269 kg (282 lb 3 oz) 12/12/2024 8:58 AM TEJQfprzt255.4 cm (5' 2.36 )09/19/2023 2:22 PM EDTBody Mass Index51.0207 2:22 PM EDT Plan of Treatment DateTypeDepartmentCare Team (Latest Contact Info)Ckkfgjyeqqr95/16/2026 9:30 AM ESTInfusion Center Neurology [address] [place] [address] vyeptiHealth MaintenanceDue DateLast DoneCommentsAnxiety Etjicxfql05/24/2014 Depression Vdgwymzss88/24/2014HIV Rnlijfdiv75/24/2014Hepatitis C Screening 11/13/2013Cervical Cancer Rjwqzcppd83/24/2017Covid-19 Vaccine (2024- season)2024Influenza Vaccine (#1), 12/31/2015, 11/27/2014, Additional history existsDTaP,Tdap,Td Vaccine (8 - Td or Tdap) 6009/21/2015, 10/24/2013, 09/07/2001, Additional history existsHepatitis B WipjvygWoxwzxcyd64/05/2003, 05/06/1996, 1995, Additional history exists HPV LeuhejeIarwwnavj80/02/2013, 01/20/2012, 11/15/2011 Insurance Care Teams Team MemberRelationshipSpecialtyStart DateEnd Abdifatah Brady (Historical) PCP - General05/21/13
--- OUTSIDE RECORDS SUMMARY | 2024-12-29 13:10 | XMS_ITS | Clinical Summary ---
Author Organization [facility] Address [address] [place] [address] Care Team Providers Care Levee Superintendent Name Role Phone Lamont Blair MD Unavailable Allergies Active AllergyReactionsCriticalityNoted ZewyEhsbksyqHsyabmicrrho00/12/2023Bee NirtoJmjewwq26/05/9196NtwvbujhuYhbzkNem07/17/4446FazdmjnubtjxgXcyvsue79/04/2021 anxiety CephalexinHives,JicdJld0312/08/20160077HxdeimlqfnphaPeuro79/23/2023larithromycinGI ooiqmjzvrdw77/16/8836KiykvfmtcloOxainup50/06/2751LrwhsfvnlvbakipgKjjyg65/23/2023 Dextromethorphan-HjryvflxebPxtwa69/18/2022DihydroergotamineGI intoleranceMedium 07/27/2022 Chest tightness, numbness and tingling in bilateral extremities, increased anxiety YjqmmxhisavncSikixuw69/22/2023MetoclopramideHives,Unknown,SimwQhd8812/08/2016Other Hives6265KbuzlkaajltOujts23/04/2021 Migrianes DfevahkffwjiOoqva40/17/2022 Other Reaction(s): intolerance to med Wound Dressing GvgnvoakVwhqMgwviw83/19/2017 Medications MedicationSigDispense QuantityRefillsLast FilledStart DateEnd DateStatus promethazine (Phenergan) 25 MG suppository Insert 25 mg into the rectum every 6 (six) hours if needed for nausea or vomitingActive Acetaminophen Extra Strength 500 MG tablet Take 500 mg by mouth every 6 (six) hours if needed (pain)03/28/2024tive albuterol (2.5 MG/3ML) 0.083% nebulizer solution Inhale 2.5 mg 4 (four) times a day as mjlijv2303/20/2024tive albuterol HFA 90 mcg/act inhaler Inhale 2 puffs every 4 (four) hours if klgwrx6905/27/2024tive amitriptyline (Elavil) 100 MG tablet Take 100 mg by mouth at ywciqaf6706/24/2024tive baclofen (Lioresal) 10 MG tablet Take 10 mg by mouth at bedtimeActive chlorzoxazone (Parafon Forte) 500 MG tablet Take 500 mg by mouth 2 (two) times a day as needed for muscle lmvzqz3805/31/2024 Active diazePAM (Valium) 10 MG tablet Take [...] Take 10 mg by mouth Daily as qhqfwg6106/06/2024tive omeprazole (PriLOSEC) [address] capsule Take [...] CT. Referred to GI. Intractable nausea and omtpxgey76/19/2024 Assessment & Plan (02/09/2024 12:19 PM EST): [...] lasix PRN. SOB (shortness of breath) on ocbokthf90/03/2024 Assessment & Plan (01/23/2024 1:55 PM EST): Severe symptom and check CXR. Use albuterol PRN and start prednisone. Pain, zalmtu8901/09/2024 Assessment & Plan (01/09/2024 10:07 AM EST): Broken tooth and follow with dentist. Gargle with warm salt water. Start ultram PRN. Opynvxq4601/01/2024 Assessment & Plan (01/09/2024 10:08 AM EST): Possibly related to bipolar. Check labs. Encounter for long-term (current) use of awdtetrhjwf49/11/2024Mild persistent asthma with (acute) zscnkqwponxn23/20/2024 Assessment & Plan (02/09/2024 12:19 PM EST): [...] Continue medications as prescribed. Mixed bipolar I fatmfdel11/05/2023 Assessment & Plan (01/09/2024 10:07 AM EST): Denies worsening symptoms and follow with specialists Assessment & Plan (11/15/2023 9:45 AM EDT): Follow with specialists Chronic migraine without aura without status migrainosus, not intractable 01/24/2023 Assessment & Plan (01/09/2024 10:08 AM EST): PINEDA worse and follow with specialists. Generalized anxiety wqttzpky00/05/2023ersistent disorder of initiating or maintaining sleep01/24/2023Mild persistent iigmyc8001/24/2023 Assessment & Plan (03/21/2023 12:36 PM EST): Continued symptoms and check PFTs. Refer to pulmonology. Use albuterol PRN. Polycystic ydaymfx2001/24/2023sychogenic nonepileptic aujihbf8601/24/2023elvic pain in ncrsxx1412/19/2022 Resolved Problems ProblemNoted DateDiagnosed DateResolved DateAcute bronchitis due to other specified iswxliqfw61 Assessment & Plan (11/15/2023 9:42 AM EDT): [...] negative check US.Use ultram PRN. Encounters DateTypeDepartmentCare CiscFhmwcxssimn56/22/2025Telephone [facility] [address] [place] [address] Ammy Carrington MA 2024Telephone [facility] [address] [place], [phone] Zay Blas DO 10/31/2024Telephone [facility] [address] [place], [phone] Ammy Carrington MA 09/30/2024Telephone [facility] [address] [place] [address] Ammy Carrington MA 09/30/2024Telephone [facility] [address] [place] [address] Ammy Carrington MA from Last 3 Months Family History Medical HistoryRelationNameCommentsChromosomal disorderDaughter 2Epididymitis Daughter 2AsthmaFatherHeart diseaseFatherAllergiesMotherAsthmaMotherDiabetes MotherDiabetes insipidusMotherMental illnessSon 1Mental illnessSon 2RelationName StatusCommentsDaughter 1AliveDaughter 2AliveFatherAliveMotherAliveSister 1Alive Sister 2AliveSister 3AliveSon 1AliveSon 2Alive Social History Tobacco UseTypesPacks/DayYears UsedDateSmoking Tobacco: NeverPassive Smoke Exposure: NeverSmokeless Tobacco: Never Tobacco Cessation:Counseling Given: Not Answered Alcohol UseStandard Drinks/WeekCommentsNever0 (1 standard drink = 0.6 oz pure alcohol)Caffeine intake: >4 cups per plcL7268 Health LiteracyAnswerDate Recorded How often do you [...] relatives?Twice a week01/23/2024How often do you attend islam or spiritism services?More than 4 times per year01/23/2024o you belong to any clubs or organizations such as islam groups, unions, fraternal or athletic donta ups, or school groups?Yes01/23/2024How often do you attend meetings of the clubs or organizations you belong to?More than 4 times per year01/23/2024re you , , , , never , or living with a partner? Living with uzeuvsf1401/23/2024UDIT-CAnswerDate RecordedQ1: How often do you have a [...] and heating?Not very hard01/23/2024HQ-2AnswerDate RecordedPatient Health Questionnaire-2 Jsejx717[facility] [place] of Occup[facility] Health - Occupational Stress QuestionnaireAnswerDate [...] from medical appointments or from getting medications?Patient evxosxcj06/03/2024In the past 12 months, has lack of [...] homeless or living in a long-term (including now)?No 01/23/2024CommentsNoSex and Gender InformationValueDate RecordedSex Assigned at BirthNot on fileLegal MilHvzfhu58/15/2023 7:02 PM EDTGender Identity Not on fileSexual OrientationNot on file Last Filed Vital Signs Vital SignReadingTime TakenCommentsBlood Dxfwgbnu453/7173609/03/2024 10:33 AM EDT Sypfj79648/20/2024 10:38 AM MVAXkwsnqmzzae14.7 ??C (98 ??F)02/09/2024 10:38 AM ESTRespiratory Svab659104/11/2023 10:38 AM ESTOxygen Zldjycpimq11%02/09/2024 10:38 AM ESTInhaled Oxygen Concentration--Bznxie900 kg (268 lb 8 oz)09/03/2024 10:33 AM TIVFdfdsu416.9 cm (5' 1 )02/09/2024 10:38 AM ESTBody [...] Date Lamont Blair MD [address] [place] [id number] [facility]4/
--- OUTSIDE RECORDS SUMMARY | 2024-12-29 13:11 | XMS_ITS | Encounter Summary ---
Author Organization [facility] Address [id number] [address] [place] [address] Care Team Providers Care Land Title Examiner Name Role Phone Corine Gold MD Primary Care Provider [phone] Reason for Visit * ReasonOnset DateCommentsPrior Yakmzxwsfkxhh87/28/2025Dupixent Encounter Details DateTypeDepartmentCare Team (Latest Contact Info)Sakywbvikhs18/28/2025Telephone [facility] [address] [place] [address] Heraclio Jovel [facility] Prior Authorization (Dupixent ) Social History Tobacco UseTypesPacks/DayYears UsedDateSmoking Tobacco: NeverSmokeless Tobacco: NeverAlcohol UseStandard Drinks/WeekCommentsNot Currently0 (1 standard drink = 0.6 oz pure alcohol)Count includes the [facility] UtilitiesAnswerDate RecordedIn the past 12 months has the [employer], gas, oil, or water [employer] threatened to shut off services in your [...] care, and heating?Not hard at all04/08/2024PHQ-2AnswerDate RecordedTotal Otugx094PRAPARE - TransportationAnswerDate RecordedIn the past 12 months, [...] a part of a household?No04/08/2024hildcareAnswerDate RecordedChildcareUnknown 08/01/2018EmploymentAnswerDate SrvfgeeiYtzrdjzlsoGyytlpc48/12/2019Hunger ScreeningAnswerDate RecordedWithin the past 12 months we worried whether our food would run out before we got money to buy more.Never True12/20/2024Within the past 12 months the food we bought just didn't last and we didn't have money to get more.Never True12/20/2024Purpose - LifeAnswerDate RecordedPurpose and direction in ywtdMzjpzhz61/12/2021CommentsNoSex and Gender Information ValueDate RecordedSex Assigned at BirthNot on fileLegal XpvPjutyt09/06/2015 11:52 AM EDTGender IdentityNot on fileSexual OrientationNot on filedocumented as of this encounter Miscellaneous Notes * Telephone Encounter - Heraclio Jovel RPH - 12/17/2024 2:25 PM EDT Name of Drug: Dupixent 300mg/2mL auto-injector Type of Request: New Prescription New Insurance: yes Prescription Number: [id number] Provider: Christoph HERNANDEZ Team will address request within 24 hours of receipt. If patient needs medication within 48 hours, please send high priority. * Telephone Encounter - Katelynn Ramires - 12/17/2024 2:25 PM EDT Medication name, strength & form: Dupixent 300MG/2ML auto-injectors Pen Diagnosis: Moderate persistent asthma, Insurance: [place] Medicaid Date/Time submitted: 12/17/24 - via Electronic submission via electronic PA. PA Cohen: [id number] Please note: Patient's pharmacy benefit may take [...] AM - Appeal faxed to [employer] at [phone] Status Check - Pending review * Telephone Encounter - Katelynn Ramires - 12/17/2024 2:25 PM EDT 12/20/2024 at 11:37 AM - Called [employer] at [phone] and entered provider's NPI when prompted. Per the updated automated system, provider's must enter their social security number or seven digit medicaid ID number to authenticate. Coverage Specialist Rn used [facility]'s medicaid number: [id number] and was unable to authenticate, unable to bypass system. Coverage Specialist Rn will try again following business day. Status Check - Pending review * Telephone Encounter - Katelynn Ramires - 12/17/2024 2:25 PM EDT 12/24/2024 at 3:36 PM - Called [employer] at [phone] and s/w rep Rubina. Advised there have been3 appeals received: 1 on 12/19 and two on 12/23. and can take up to 15 business days. TAT 01/10/2025 Status Check - Pending review documented in this encounter Plan of Treatment DateTypeDepartmentCare Team (Latest Contact Info)Zfiasibielh39/18/2025 3:15 PM ESTOffice Visit [facility] [address] [place] [id number] Corine Gold MD [address] [place] [address] 01/30/2025 8:00 PM ESTClinical Support [facility] [address] [place] [address] Corine Gold MD [address] [place] [address] 02/27/2025 8:00 PM ESTClinical Support [facility] [address] [place] [address] Corine Gold MD [address] [place], [place] [address] 03/25/2025 9:45 AM ESTOffice Visit [facility] [address] [address] Mariah Peña DO [address] [id number] documented as of this encounter Goals GoalPatient Goal TypeAssociated ProblemsRecent ProgressPatient-Stated?Author home Tamiko Thompson RN Note: Evaluation of progress towards goal: Patient stated goal is to return home with [facility] for assistance with wound care documented as of this encounter Visit Diagnoses Not on filedocumented in this encounter Additional Health Concerns AssessmentNoted TimePHQ-9 Depression Total Score: 2:59 PM EDT documented as of this encounter Care Teams Team MemberRelationshipSpecialtyStart DateEnd Date Corine Gold MD [address] [place], [place] [id number] PCP - GeneralInternal Medicine03/25/24documented as of this encounter
--- OUTSIDE RECORDS SUMMARY | 2024-12-29 13:11 | XMS_ITS | Patient Health Record ---
Author Organization [facility] [place] Address [address] [place] [address] Care Team Providers Care In Class Special Education Teacher Name Role Phone Lamont Blair MD Primary Care Provider Romeo bradley CasieHeraclio Unavailable [phone] Allergies Allergen (clinical drug ingredient) Drug/Non Drug Allergy documented on EMR Reaction Allergy Type Onset Date Status metoclopramide Reglan Panic [place]acks Drug Allergy ActiveAdhesiverashAllergyActiveazithromycinAzithromycinUnknownDrug AllergyActive azithromycinAzithromycinhivesDrug AllergyActivecarbamazepineCarbamazepineUnknown Drug AllergyActivecephalexinCephalexinrashDrug AllergyActiveLatexLatexhives AllergyActivemetoclopramideMetoclopramiderashDrug AllergyActivebuspirone BuspironeSuicidal ThoughtsDrug AllergyActiveclindamycinClindamycinUnknownDrug AllergyActivedextromethorphanDextromethorphanhivesDrug AllergyActive dextromethorphanDextromethorphanhivesDrug AllergyActivepropranololPropranolol hivesDrug AllergyActivevortioxetineVortioxetineintolerance to medDrug Allergy Active Reason For Referral No Information Medications Medication SIG (Take, Route, Frequency, Duration) Notes Start Date End Date Status diazePAM 10 MG 1 tablet as needed Orally Once a day ActivetraZODone HCl 300 MGtake 1 tablet by mouth once daily at bedtime Oral; Duration: 30 DaysActiveCaplyta 10.5 MGas directed Htabkf6004/19/2023ctive Ketorolac Tromethamine 10 MGtake 1 tablet by mouth every 6 hours if needed for SEVERE migraines Oral; Duration: 5 DaysActiveEstradiol 1 MGOral; Duration: 30 DaysActiveAlbuterol Sulfate (2.5 MG/3ML) 0.083%Take 3 mL (2.5 mg) by nebulization every 6 (six) hours if needed for wheezing Inhalation; Duration:8 DaysActiveOrphenadrine Citrate ER 100 MGOral; Duration: 15 DaysActiveAimovig 70 MG/MLSubcutaneous; Duration: 30 DaysActiveOndansetron 4 MGOral; Duration: 7 Days ActiveBaclofen 10 MGOral; Duration: 30 DaysActivePromethazine HCl 25 MGtake 1 tablet by mouth every 8 hours if needed for nausea and vomiting AND DIZZINESS Oral; Duration: 10 DaysActiveAlbuterol Sulfate HFA 108 (90 Base) MCG/ACT Inhalation; Duration: 17 DaysActivePhentermine HCl 37.5 MGtake 1 tablet by mouth every morning before meals Oral; Duration: 30 DaysActiveLithium Carbonate 300 MG take 1 tablet by mouth twice a day Oral; Duration: 30 DaysActivelamoTRIgine 200 MGOral; Duration: 30 DaysActiveMucinex DM 30-600 MGOral; Duration: 7 DaysActive Dulera 100-5 MCG/ACT2 puffs Inhalation BID; Duration: 30 daysRinse after use 04/25/2023ctiveSpiriva Respimat 1.25 MCG/ACT2 puffs Inhalation QD; Duration: 30 days04/25/2023ctive Immunizations Vaccine Route Administration Date Status Comme nts Flu, (62476) -historic- 3-va lent, Split, Prsrvtve Free, 6-35 months, for IM use Unknown 10/23/2012 Administered Social History Tobacco Use: Social History Observation Description Date Details (start date - stop date) Never Smoker NA - NA Tobacco Use/Smoking Question Answer Notes Patient is a nonsmoker Patient is anonsmoker Problems Problem Type SNOMED Code ICD Code Onset Dates Problem Status W/U Status Risk Notes Problem Plantar wart (74838971) Plantar wart (B07 .0) ActiveconfirmedProblemChronic intractable migraine without aura (199329649598565)Chronic migraine without aura, intractable, with status migrainosus (G43.711)ActiveconfirmedProblemUncomplicated severe persistent asthma (265689750)Severe persistent asthma, uncomplicated (J45.50)Active confirmedProblemContracture of joint of left ankle (disorder) (640205493002698) Contracture, 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)ActiveconfirmedProblemLong-term current use of inhaled steroid (075595530)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 steroids (Z79.51) ActiveconfirmedProblemMorbid obesity (433386700)Morbid obesity (E66.01)Active confirmedProblemBipolar disorder (06737669)Bipolar disorder (F31.9)Active confirmedProblemReactive airway disease (565184072065)Reactive airway disease (J45.909)ActiveconfirmedProblemIntractable migraine (416097728)Intractable migraine (G43.919)ActiveconfirmedProblemTobacco use (322373102)Vapes nicotine containing substance (Z72.0)ActiveconfirmedProblemBody mass index 40+ - severely obese (542589974)Body mass index [BMI] 45.0-49.9, adult (Z68.42)Activeconfirmed ProblemPeripheral eosinophilia (D72.19)Activeconfirmed Encounters Encounter Location Date Provider Diagnosis Pulmonary Medicine [address] [address] 03/19/2024 Heraclio Jason Plan Of Treatment No Information Insurance Providers Payer Name Payer Address Payer Phone Subscriber Number Group Number Insured Name Patient Relationship to Insured Coverage Start Date Coverage End Date [employer] [place] [employer] [address] [place] [address] [id number] Carly Nicholson - patient is the [id number] 2022 Medical (General) History Medical History History ICD Code asthma migraine headachesseizuresLeft foot painM79.672Severe persistent asthma, uncomplicatedPeripheral eosinophiliaVapes nicotine containing substanceLong term (current) use of inhaled steroidsMorbid obesityPseudoseizuresPCOS (polycystic ovarian syndrome)OMID (generalized anxiety disorder)Bipolar disorder, mixed Surgical History Surgery Date(Month/Year) diagnostic laparoscopy cholecystectomycesarean sectiontubal ligationhysterectomyappendectomyvaginal repairappendectomyc-section l2tfijr ligationdiagnostic laphysterectomy, total with bilateral salpingo-oophorectomy (BSO)Hospitalization History Reason Date(Month/Year) Acute Exacerbation of Asthma-[facility] 023 Acute Exacerbation of Asthma-[facility] 024
--- OUTSIDE RECORDS SUMMARY | 2024-12-29 13:11 | XMS_ITS | Encounter Summary ---
Author Organization [facility] Address [address] [place] [address] Care Team Providers Care Neck Cutter Name Role Phone Lamont Blair MD Primary Care Provider [phone] Unallocated, Noms Provider Primary Care Provi mahsa Lamont Blair MD Unavailable Encounter Details DateTypeDepartmentCare Team (Latest Contact Info)Kitqjvovcjm35/30/2024Clinisync Result Encounter [facility] Unsolicited Provider, [...] relatives?Twice a week01/23/2024How often do you attend rastafari or mormon services?More than 4 times per year 01/23/2024o you belong to any clubs or organizations such as rastafari groups, unions, fraternal or athletic groups, or school groups?Yes01/23/2024How often do you attend meetings of the clubs or organizations you belong to?More than 4 times per year01/23/2024re you , , , , never , or living with a partner?Living with gsevzzr9101/23/2024UDIT-CAnswerDate RecordedQ1: How often do you have a [...] and heating?Not very hard01/23/2024HQ-2AnswerDate RecordedPatient Health Questionnaire-2 Xbayd880Finintermountain medical center [place] of Occupational Health - Occupational Stress QuestionnaireAnswerDate [...] medical appointments or from getting medications? Patient gakxrswf48/03/2024In the past 12 months, has lack of [...] homeless or living in a retirement (including now)?No01/23/2024CommentsNoSex and Gender InformationValueDate RecordedSex Assigned at BirthNot on fileLegal SexFemale 05/04/2022 7:02 PM EDTGender IdentityNot on fileSexual OrientationNot on file documented as of this encounter Plan of Treatment Not on file documented as of this encounter Procedures Procedure NamePriorityDate/TimeAssociated DiagnosisCommentsUS PELVIS W/ LTLIBBAFRLEA51/30/2024 8:05 AM EST documented in this encounter Results * US PELVIS W/ TRANSVAGINAL (02/19/2024 8:05 AM EST)Anatomical RegionLaterality ModalityOtherSpecimen (Source)Anatomical Location / LateralityCollection Method / VolumeCollection TimeReceived Time02/19/2024 8:05 AM EST Narrative 02/19/2024 8:08 AM EST [facility] ?[address] ? [place] [address] ? Ultrasound Report ? Signed ? Patient: MARGARET NICHOLSON ?MR#: [id number] ?? : 1995 ?Acct:[id number] ?? Age/Sex: 28 / F ?ADM Date: 02/19/24 ?? Loc: [place] ? Attending Dr: Brenda Blas D.O. ? Ordering Physician: Brenda Blas D.O. ?? Date of Service: 02/19/24 ?? Procedure(s): US pelvis w/ transvaginal ?? Accession Number(s): [id number] ? cc: Brenda Blas D.O.; Lamont Blair M.D. ? [facility] ? [address] ? [place] [address] ? Patient Name: ?? MARGARET NICHOLSON ? MRN: [facility]:[id number] ? date: 1995 ?Sex: F ?? Assigned Patient Location: [place] ?? Current Patient Location: [place] ?? Accession/Order Number: [id number] ?? Exam Date: 02/19/2024 ??07:11 ?Report Date: [...] 0808 ? DD/ 0805 ? TD/TT: ? [employer]ale [employer] Advisor: Procedure Note Radiology, Radiologist, MD - 02/19/2024 [place] [address] Ultrasound Report Signed Patient: MARGARET NICHOLSON LMR#: [id number] : 1995Acct:[id number] Age/Sex: 28 / FADM Date: 02/19/24 Loc: US Attending Dr: Brenda Blas D.O. Ordering Physician: Brenda Blas D.O. Date of Service: 02/19/24 Procedure(s): US pelvis w/ transvaginal Accession Number(s): [id number] cc: Brenda Blas D.O.; Lamont Blair M.D. [place] [id number] Patient Name: MARGARET NICHOLSON MRN: [id number] date: 1995 Sex: F Assigned Patient Location: [place] Current Patient Location: [place] Accession/Order Number: [id number] Exam Date: 02/19/2024 07:11 Report Date: 02/19/2024 [...] By: Andre Ibrahim M.D. Signed By:02/19/24807 DD/ 0805 TD/TT: [employer] Advisor: Authorizing ProviderResult TypeResult StatusGeneric External Data Provider CLINISYNC IMAGINGFinal Result documented in this encounter Visit Diagnoses Not on filedocumented in this encounter Care Teams Team MemberRelationshipSpecialtyStart DateEnd Date Lamont Blair MD PCP - GeneralFamily Medicine/04/16 Unallocated, Nelson Davalos MD [address] [place] [address] [facility] - [facility] Lamont Blair MD [address] [place] [address] PCP - [facility]05/21/2510documented as of this encounter
--- OUTSIDE RECORDS SUMMARY | 2024-12-29 13:11 | XMS_ITS | Clinical Summary ---
Author Organization [facility] Address [address] [place] [address], [address] [place] [address] Care Team Providers Care Pleating Machine Operator Name Role Phone Angélica Weber Pamela HECK - UNIFORMS SALES REPRESENTATIVE Primary Care Provider [phone] Allergies Active AllergyReactionsCriticalityNoted BlfzPkmoupwqOjpzlagfsrZbayb14/04/2021 Propranolol HclHives,Other (See Comments)12/24/2020 Migrianes LvuohtyttakxktRdqfh62/04/2021arbamazepineOther (See Comments)12/24/2020 anxiety KdronjpgymxbVxyzd71/04/2021 Medications MedicationSigDispense QuantityRefillsLast FilledStart DateEnd DateStatus SUMAtriptan [...] Discharge) Active Problems ProblemNoted DateDiagnosed DatePsychogenic nonepileptic sfbjgvl0710/20/2021 Seizure-like /30/2022eizure tceprxbm57/30/2022 Social History Tobacco UseTypesPacks/DayYears UsedDateSmoking Tobacco: NeverSmokeless Tobacco: NeverAlcohol UseStandard Drinks/WeekCommentsNot Currently0 (1 standard drink = 0.6 oz pure alcohol)CommentsNoSex and Gender InformationValueDate RecordedSex Assigned at BirthNot on fileLegal JlyFrdqcd02/13/2013 12:07 AM EST Gender IdentityNot on fileSexual OrientationNot on file Last Filed Vital Signs Vital SignReadingTime TakenCommentsBlood Vsfmtjma369/4585410/20/2021 12:00 PM EDT Cxrbs7572 12:00 PM ZCCUmzfcajfytl86.8 ??C (98.2 ??F)10/20/2021 8:00 AM EDTRespiratory Sgzf918910/20/2021 12:00 PM EDTOxygen Alenyoyged21%10/20/2021 12:00 PM EDTInhaled Oxygen Concentration--Weight--Height--Body Mass Index-- Plan of Treatment Not on file Insurance Advance Directives * Full Code (Latest Code Status on File) Date ActivatedDate InactivatedComments10/19/2021 12:27 PM10/20/2021 4:12 PM * Full Code Date ActivatedDate InactivatedComments10/19/2021 12:23 PM10/19/2021 12:27 PM Care Teams Team MemberRelationshipSpecialtyStart DateEnd Date Anéglica Weber, MEAT SLICER - UNIFOR[employer] SALES REPRESENTATIVE [address] [place] [address] PCP - GeneralNurse Rqfzsntydhpn35/4/21
--- OUTSIDE RECORDS SUMMARY | 2024-12-29 13:11 | XMS_ITS | Clinical Summary ---
Author Organization [employer] s tem Address [id number] [address] [place] [address] Care Team Providers Care Top Screw Name Role Phone Corine Gold MD Primary Care Provider [phone] Allergies Active AllergyReactionsCriticalityNoted TqsjKbjczcwiEjsnzdqmIsyvXfkmsi36/17/2022 Adhesive Tape-Seuscjxqb55/19/2017AmoxicillinHives,SstzsadyAkdi67/21/2025 Amoxicillin-Pot ClavulanateHives,IttjwvlyWyzd32/21/2025Bee Venom Protein (Honey Bee)DvhenerdbifXcgx87/05/5077WmoixhkvkTtauqJnm31/17/2022arbamazepineOther (See Comments)12/24/2020 anxiety TsrdapuwbvswzTrnri73/23/9387RkjykqkfagpVhzwx70/06/2021ProchlorperazineAnxietyLow 12/29/20237490ObvwnyvxyjuvjUmjxv22/27/8102NpsgarbzalrqrwezBzogx75/23/2023 DihydroergotamineGI Disturbance,UrcfcIjiyyv20/07/2023 Other Reaction(s): Intolerance Chest tightness, numbness and tingling in bilateral extremities, increased anxiety Eptinezumab-JjmrItching,XuayEuw1405/02/2024 Patient described extreme itching located on her chest and arms (bilaterally). CaaxerffoqaVggljihictvpdb24/05/1964SevxaukfggGmlyk26/19/2017LevetiracetamHives, Doksyzk7311/11/2022MetoclopramideHives,Other (See Comments)12/24/2020ropranolol HclHives,Other (See Comments)12/24/2020 Migrianes Pyrilamine-TdmvdjqjcvnkqugfTnfbz49/12/2023Metoclopramide HclItching,AnxietyLow 12/08/2016 No rash CdzmleysuqjnYojip21/17/2873AzhltfhmgcagFuetp54/19/2017 Medications MedicationSigDispense QuantityRefillsLast FilledStart DateEnd DateStatus diazePAM [...] mg total) before bedtime. 120 tablet 5Active ocmgzcqzmkg-rqwdkucvg-zzumxlum (TRELEGY ELLIPTA) 200-62.5-25 mcg blister with device [...] (three) times a day. 30 each 5Active srgidxjzixg-maxhtldlb-noxfgobn (TRELEGY ELLIPTA) 200-62.5-25 mcg blister with device [...] Problems ProblemNoted DateDiagnosed DateGastroesophageal reflux disease without ragmbjlrvik46/28/2025Environmental rkilfgmcm23/28/2025Eye infection, bilateral 07/24/2024Ingrown nail of great toe07/24/2024bdominal wall tpxetiyvwm61/17/2025 Postoperative surgical complication involving genitourinary system associated with genitourinary pksihuucs44/17/2025S/P bilateral salpingo-oophorectomy 03/28/2024hronic migraine without aura without status migrainosus, not lagvpdwqtho34/05/2023Polycystic wrcxcos6201/24/2023Moderate persistent asthma without pcmdrdxyceok10/09/6505Sbefszl63/09/2022epressive nmfisvem64/09/2022 Psychogenic nonepileptic wdqcgdx8010/20/2021Migraine with aura and without status migrainosus, not xxgjseilnun13/17/2022ilateral occipital izjsixfgn53/17/2022 Encounter for observation of suspected anomaly not found06/04/2019 Resolved Problems ProblemNoted DateDiagnosed DateResolved DateMild persistent asthma with (acute) baqkldenwhcg43ute coughSeizure-like tyfgtlsg80/07/2024LOC (loss of consciousness) Simple partial seizure rkkrdafb94 Encounters DateTypeDepartmentCare IjpdPaxsplmgapx84/31/2025 10:00 AM EDTOffice Visit [facility] [address] [place] [address] [place] [address] Saba Carter N, ROTARY FILTER OPERATOR-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 STRAP MAKER Moderate persistent asthma without complication (Primary Dx); Watery eyes; Seasonal allergic rhinitis, unspecified jgqjbya2412/19/2024Orders Only [facility] [address] [phone] Mariah Peña, DO Moderate persistent asthma, unspecified whether usniibhhzox77/28/2025 9:30 AM EDTOffice Visit [facility] [address] [phone] Mariah Peña, DO Moderate persistent asthma without complication (Primary Dx); Gastroesophageal reflux disease without esophagitis; Environmental /28/2025Telephone [facility] [address] [place] [phone] Heraclio Jovel [facility] Prior Authorization (Dupixent )12/17/20241465Ijidqj55/23/2025Telephone [facility] [address] [place] [address] Corine Gold MD Sleep Lab (Comp PSG/PAP)12/10/2024 2:30 PM EDTOffice Visit [facility] [address] [place] [address] [place] [address] Corine Gold MD JUAN DAVID (obstructive sleep apnea) (Primary Dx)12/10/2024Telephone [facility] [address] [phone] Malia Mason RN 12/10/20248774Ptiooo40/20/2025Refill [facility] [address] [phone] Mariah Peña, DO Moderate asthma with acute exacerbation, unspecified whether persistent 11/24/2024 5:31 PM EDT - 11/25/2024 2:16 AM EDTEmergency [facility] [address] [facility] [place] [phone] Cecilio Grant, DO Nonintractable headache, unspecified chronicity pattern, unspecified headache type (Primary Dx) Discharge Disposition: Home11/24/20245219Qhzkcu87/25/4572Ggmcot91/04/2025 2:40 PM EDTOffice Visit [facility] [address] [place] [address] [place] [address] Mali Hart, UMANG-CHIN STRAP MAKER Left otitis media, unspecified otitis media type (Primary Dx); Mild asthma with exacerbation, unspecified whether /04/2025Travel 09/30/2024Orders Only [facility] [address] [phone] Mariah Peña, DO Moderate persistent asthma, unspecified whether mxmayitqfyv57/10/2025Refill [facility] [address] [place] [phone] Corine Gold MD Muscle spasmfrom Last 3 Months Immunizations ImmunizationAdministration DatesNext BxvSQaV8009/07/2001DTaP / HIB / IPV03/05/1997 ,07/05/1996,05/06/1996,01/15/1996HPV Dfxrnescsfgy47/02/2013,01/20/2012, 11/15/2011Hep B, Adolescent or Jzyjtuobn17/05/2003,05/06/1996,1995, 1995IPV09/07/2001Influenza (IM) Preservative Free12/31/2015,11/27/2014, 10/23/2012,11/15/2011Influenza, Injectable, Mdck, Preservative Free, Quad 12/08/2017MMR09/07/2001,03/05/1997Meningococcal BZX3Q0611/15/2011Tdap09/21/2015 Cmkatpvmr87/25/2012,10/25/2002 Family History Medical HistoryRelationNameCommentsAnesthesia problemsFatherprolonged emergence Cystic fibrosisFatherOvarian cancerMaternal AuntAnesthesia problemsMother Prolonged emergenceCystic fibrosisMotherRelationNameStatusCommentsFatherAlive Maternal AuntMotherAliveSister 1AliveSister 2AliveSister 3Alive Social History Tobacco UseTypesPacks/DayYears UsedDateSmoking Tobacco: NeverSmokeless Tobacco: Never Tobacco Cessation:Counseling Given: Not Answered Alcohol UseStandard Drinks/WeekCommentsNot Currently0 (1 standard drink = 0.6 oz pure alcohol)[facility] UtilitiesAnswerDate RecordedIn the past 12 months [...] care, and heating?Not hard at all04/08/2024PHQ-2AnswerDate RecordedTotal Uwkpu241PRAPARE - TransportationAnswerDate RecordedIn the past 12 months, [...] a part of a household?No04/08/2024hildcareAnswerDate RecordedChildcareUnknown 08/01/2018EmploymentAnswerDate WqivdykaCbcbxrswmzVdalyqb89/12/2019Hunger ScreeningAnswerDate RecordedWithin the past 12 months we worried whether our food would run out before we got money to buy more.Never True12/20/2024Within the past 12 months the food we bought just didn't last and we didn't have money to get more.Never True12/20/2024Purpose - LifeAnswerDate RecordedPurpose and direction in wucmAavkdeh80/12/2021CommentsNoSex and Gender Information ValueDate RecordedSex Assigned at BirthNot on fileLegal MtkWdctug84/06/2015 11:52 AM EDTGender IdentityNot on fileSexual OrientationNot on file Last Filed Vital Signs Vital SignReadingTime TakenCommentsBlood Fwmapwxo351/7812/20/2024 10:01 AM EDT Aornv79321/31/2025 10:01 AM ZIZBqccbkpanwl51.6 ??C (97.9 ??F)12/20/2024 10:01 AM EDTRespiratory Xiau0276 2:07 AM EDTOxygen Qunffyiucm33%12/20/2024 10:01 AM EDTInhaled Oxygen Concentration--Dguttc049.5 kg (283 lb 6.4 oz)12/20/2024 10:01 AM GABCwxryu610.9 cm (5' 0.98 )12/20/2024 10:01 AM EDTBody Mass Index53.58 12/20/2024 10:01 AM EDT Plan of Treatment DateTypeDepartmentCare Team (Latest Contact Info)Ufpwpldfptx85/18/2025 3:15 PM ESTOffice Visit [facility] [address] [place] [phone] Corine Gold MD [address] [place] [address] 01/30/2025 8:00 PM ESTClinical Support [facility] [address] [place] [address] Corine Gold MD [address] [facility] [place] [address] 02/27/2025 8:00 PM ESTClinical Support [facility] [address] [place] [address] Corine Gold MD [address] [facility] [place] [address] 03/25/2025 9:45 AM ESTOffice Visit [facility] [address] [phone] Mariah Peña DO [address] [place] [address] Health MaintenanceDue DateLast DoneCommentsInfluenza Vghcint0410/21/2024 12/08/2017, 12/31/2015, 11/27/2014, Additional history existsDTaP,Tdap and Td Vaccines (7 - Td or Tdap), 09/07/2001, 03/05/1997, Additional history existsAdult BMI Follow Up Plandult BMI Ninrvrprp77Depression Csdeyemxo20Tobacco Tfzcnlmxe09Pap HpymoEaaztqeoklzw88/25/2025 Goals GoalPatient Goal TypeAssociated ProblemsRecent ProgressPatient-Stated?Author home Tamiko Thompson, PRATIBHA Note: Evaluation of progress towards goal: Patient stated goal is to return home with [facility] for assistance with wound care Medical Devices Not on file Procedures Procedure NamePriorityDate/TimeAssociated DiagnosisCommentsCT BRAIN WO CONTSTAT 11/24/2024 9:06 PM EDT ECG 12-NYMXWVSV82/05/2025 7:08 PM EDTCOMPREHENSIVE METABOLIC HFHVYMOYK67/05/2025 7:04 PM EDT CBC WITH AUTO QVEBUEXCEGEJSVAT07/05/2025 7:04 PM EDT from Last 3 Months [...] AtPathologist SignatureWBC8.34 - 11 x10E9/L1 7:27 PM [facility] LABORATORYRBC Count4.55 3.8 - 5.2 X10E12/L1 7:27 PM [facility] Kqcjygzpqx11.311.7 - 15.5 g/dL11/24/2024 7:27 PM [facility] MEXPWCZMFHHygfkbymhd10.035 - 47 %11/24/2024 7:27 PM [facility] SVXWBAPLWNJHM2614 - 100 fL11/24/2024 7:27 PM [facility] YHWWAPNWTIFOB31.227 - 34 pg11/24/2024 7:27 PM [facility] UEUFLQNWPQIYCP29.132 - 36 g/dL11/24/2024 7:27 PM [facility] RKMHBXWEYPCEP84.811.5 - 15 %11/24/2024 7:27 PM [facility] LABORATORYPlatelet Hhlze290401 - 450 X10E9/L1 7:27 PM EDT [facility] LABORATORYMPV7.87 - 12 fL11/24/2024 7:27 PM [facility] LABOR[facility]ORYNeutrophils %55.2%11/24/2024 7:27 PM [facility]OR[facility]ORYLymphocytes %30.0%11/24/2024 7:27 PM [facility]ORYMonocytes %6.7%11/24/2024 7:27 PM [facility]ORYEosinophils %7.5%11/24/2024 7:27 PM [facility]ORYBasophils %0.6%11/24/2024 7:27 PM [facility] LABORATORYNeutrophils Absolute (A)4.61.5 - 6.6 10*3/uL 11/24/2024 7:27 PM [facility] LABORATORYLymphocytes Absolute 2.51.0 - 3.5 10*3/uL11/24/2024 7:27 PM [facility] Monocytes Absolute0.60.0 - 0.9 10*3/uL11/24/2024 7:27 PM [facility]ORYEosinophils Absolute0.6(H)0.0 - 0.4 10*3/uL11/24/2024 7:27 PM [facility]ORATORYBasophils Absolute0.00.0 - 0.2 10*3/uL 11/24/2024 7:27 PM [facility] LABORATORYDifferential Type AUTOMATED WKGGDWKNHAWA99/05/2025 7:27 PM [facility] LABORATORYSpecimen (Source)Anatomical Location / LateralityCollection Method / VolumeCollection TimeReceived TimeBloodVenous blood / Hagehsd4911/24/2024 7:04 PM EDT1 7:14 PM EDT Narrative Authorizing ProviderResult TypeResult StatusJesse Jose TAI BLOOD ORDERABLES Final ResultPerforming OrganizationAddressCity/State/ZIP CodePhone Number [facility] [address] [place] [address], [place] [phone] * (ABNORMAL) Comprehensive metabolic panel (11/24/2024 7:04 PM EDT)Component ValueRef RangeTest MethodAnalysis TimePerformed AtPathologist SignatureSODIUM 030227 - 146 mmol/L1 7:48 PM [facility] POTASSIUM4.13.5 - 5.0 mmol/L1 7:48 PM [facility] DORLWKXKXVRGXCZXUM50458 - 109 mmol/L1 7:48 PM [facility] LABORATORYCARBON VNMFVQB9213 - 32 mmol/L1 7:48 PM [facility] LABORATORYANION MWK955 - 15 mmol/L1 7:48 PM [facility] LABORATORYBLOOD UREA AEJEQDUM747 - 23 mg/dL11/24/2024 7:48 PM [facility] LABORATORYCREATININE0.690.40 - 1.00 mg/dL 11/24/2024 7:48 PM [facility]ORATORYComment:METHOD TRACEABLE TO IDMO NXGDUHGUVPHHRMN0298 - 99 mg/dL11/24/2024 7:48 PM [facility] LABORATORYCALCIUM9.08.5 - 10.5 mg/dL11/24/2024 7:48 PM [facility]ORATORYTOTAL PROTEIN6.76.0 - 8.0 g/dL11/24/2024 7:48 PM [facility] LABORATORYALBUMIN4.13.2 - 5.3 g/dL 11/24/2024 7:48 PM [facility] LABORATORYALKALINE PHOSPHATASE 7739 - 130 U/L1 7:48 PM [facility] FSAVCRCVVHVSJ27 <=41 U/L1 7:48 PM [facility] PPDICXQVPKMWJ37<=31 U/L 11/24/2024 7:48 PM [facility] LABORATORYBILIRUBIN,TOTAL0.2(L) 0.3 - 1.2 mg/dL11/24/2024 7:48 PM [facility]ORYEGFR Non-Race Dependent>90>=60 ml/min/1.73sq.m1 7:48 PM [facility] LABORATORYComment: Reported eGFR is based on the CKD-EPI 2020 equation that does not use a race coefficient. Specimen (Source)Anatomical Location / LateralityCollection Method / Volume Collection TimeReceived TimeBloodVenous blood / Uhywzvl5311/24/2024 7:04 PM EDT 11/24/2024 7:14 PM EDT Narrative Authorizing ProviderResult TypeResult StatusJesse Jose Grant [facility] BLOOD ORDERABLES Final ResultPerforming OrganizationAddressCity/State/ZIP CodePhone Number [facility] [address] [place] [address], from Last 3 Months Insurance Advance Directives * Full Code (Latest Code Status on File) Date ActivatedDate InactivatedComwest[facility]03/28/2024 2:56 PM2 8:49 PM Care Teams Team MemberRelationshipSpecialtyStart DateEnd Date Corine Gold MD [address] [facility], [place] [address] PCP - GeneralInternal Medicine03/25/24
--- OUTSIDE RECORDS SUMMARY | 2024-12-29 13:11 | XMS_ITS | Encounter Summary ---
Author Organization [facility] tem Address [id number] [address] [place] [address] Care Team Providers Care Rn Pacu Name Role Phone Corine Gold MD Primary Care Provider [phone] Encounter Details DateTypeDepartmentCare Team (Latest Contact Info)Nkwaadmjiju76/28/2025Travel Social History Tobacco UseTypesPacks/DayYears UsedDateSmoking Tobacco: NeverSmokeless Tobacco: NeverAlcohol UseStandard Drinks/WeekCommentsNot Currently0 (1 standard drink = 0.6 oz pure alcohol)[facility] UtilitiesAnswerDate RecordedIn the past 12 [...] care, and heating?Not hard at all04/08/2024PHQ-2AnswerDate RecordedTotal Kyszj667PRAPARE - TransportationAnswerDate RecordedIn the past 12 months, [...] a part of a household?No5ChildcareAnswerDate RecordedChildcareUnknown 08/01/2018EmploymentAnswerDate GgmpazqlFvmiooorfjDbxkeze68/12/2019Hunger ScreeningAnswerDate RecordedWithin the past 12 months we worried whether our food would run out before we got money to buy more.Never True12/10/2024Within the past 12 months the food we bought just didn't last and we didn't have money to get more.Never True12/10/2024Purpose - LifeAnswerDate RecordedPurpose and direction in mhfiBzwpjnu16/12/2021CommentsNoSex and Gender Information ValueDate RecordedSex Assigned at BirthNot on fileLegal NzgRcplus80/06/2015 11:52 AM EDTGender IdentityNot on fileSexual OrientationNot on filedocumented as of this encounter Plan of Treatment DateTypeDepartmentCare Team (Latest Contact Info)Zdsfzlmvsqo66/18/2025 3:15 PM ESTOffice Visit [facility] [address] [place] [phone] Corine Gold MD [address] [place] [address] 01/30/2025 8:00 PM ESTClinical Support [facility] [address] [place] [phone] Corine Gold MD [address] [place] [phone] 02/27/2025 8:00 PM ESTClinical Support [facility] [address] [place] [phone] Corine Gold MD [address] [facility] [place], [place] [phone] 03/25/2025 9:45 AM ESTOffice Visit [facility] [address] [phone] Mariah Peña DO [address] [address] documented as of this encounter Goals GoalPatient Goal TypeAssociated ProblemsRecent ProgressPatient-Stated?Author home Tamiko Thompson RN Note: Evaluation of progress towards goal: Patient stated goal is to return home with [facility] for assistance with wound care documented as of this encounter Visit Diagnoses Not on filedocumented in this encounter Additional Health Concerns AssessmentNoted TimePHQ-9 Depression Total Score: 2:59 PM EDT documented as of this encounter Care Teams Team MemberRelationshipSpecialtyStart DateEnd Date Corine Gold MD [address] [facility] [place] [address] PCP - GeneralInternal Medicine03/25/24documented as of this encounter
--- OUTSIDE RECORDS SUMMARY | 2024-12-29 13:11 | XMS_ITS | Encounter Summary ---
Author Organization [facility] tem Address [id number] [address] [place] [address] Care Team Providers Care Nut Roaster Helper Name Role Phone Corine Gold MD Primary Care Provider [phone] Reason for Visit * ReasonOnset DateCommentsSleep Lab12/12/2024omp PSG/PAP Encounter Details DateTypeDepartmentCare Team (Latest Contact Info)Jwyktprmjgk08/23/2025Telephone [facility] Disorders [address] [place] [address] Corine Gold MD [address] [place] [phone] Sleep Lab (Comp PSG/PAP) Social History Tobacco UseTypesPacks/DayYears UsedDateSmoking Tobacco: NeverSmokeless Tobacco: NeverAlcohol UseStandard Drinks/WeekCommentsNot Currently0 (1 standard drink = 0.6 oz pure alcohol)[facility]1983 UtilitiesAnswerDate RecordedIn the past 12 months has the [employer], gas, oil, or water [facility] threatened to shut off services in your [...] care, and heating?Not hard at all04/08/2024PHQ-2AnswerDate RecordedTotal Zburk243PRAPARE - TransportationAnswerDate RecordedIn the past 12 months, [...] a part of a household?No04/08/2024hildcareAnswerDate RecordedChildcareUnknown 08/01/2018EmploymentAnswerDate VdvkqfofFnymelirnyAinxlrt16/12/2019Hunger ScreeningAnswerDate RecordedWithin the past 12 months we worried whether our food would run out before we got money to buy more.Never True12/20/2024Within the past 12 months the food we bought just didn't last and we didn't have money to get more.Never True12/20/2024Purpose - LifeAnswerDate RecordedPurpose and direction in wnzyXcchzny17/12/2021CommentsNoSex and Gender Information ValueDate RecordedSex Assigned at BirthNot on fileLegal DddRjsgds17/06/2015 11:52 AM EDTGender IdentityNot on fileSexual OrientationNot [...] Plan of Treatment DateTypeDepartmentCare Team (Latest Contact Info)Oaxgjprgqnv22/18/2025 3:15 PM ESTOffice Visit [facility] [address] [place] [phone] Corine Gold MD [address] [place] [address] 01/30/2025 8:00 PM ESTClinical Support [facility] Disorders [address] [place] [phone] Corine Gold MD [address] [place], [place] [address], [place] [phone] 02/27/2025 8:00 PM ESTClinical Support [facility] [address] [place] [phone] Corine Gold MD [address] [place], [place] [address] [place] [address] 03/25/2025 9:45 AM ESTOffice Visit [facility] [address] [phone] Mariah Peña, [address] [address] documented as of this encounter Goals GoalPatient Goal TypeAssociated ProblemsRecent ProgressPatient-Stated?Author home Tamiko Thompson RN Note: Evaluation of progress towards goal: Patient stated goal is to return home with [facility] for assistance with wound care documented as of this encounter Visit Diagnoses Not on filedocumented in this encounter Additional Health Concerns AssessmentNoted TimePHQ-9 Depression Total Score: 2:59 PM EDT documented as of this encounter Care Teams Team MemberRelationshipSpecialtyStart DateEnd Date Corine Gold MD [address] [place], [place] [phone] PCP - GeneralInternal Medicine03/25/24documented as of this encounter
--- OUTSIDE RECORDS SUMMARY | 2024-12-29 13:11 | XMS_ITS | Encounter Summary ---
Author Organization [facility] Address [id number] [place] [address] Care Team Providers Care Wire Coiner Name Role Phone Corine Gold MD Primary Care Provider [phone] Encounter Details DateTypeDepartmentCare Team (Latest Contact Info)Naayjrivqoo17/30/2025Orders Only [facility] [address] [phone] Mariah Peña DO [address] [address] Moderate persistent asthma, unspecified whether complicated Social History Tobacco UseTypesPacks/DayYears UsedDateSmoking Tobacco: NeverSmokeless Tobacco: NeverAlcohol UseStandard Drinks/WeekCommentsNot Currently0 (1 standard drink = 0.6 oz pure alcohol)[facility] UtilitiesAnswerDate RecordedIn the past 12 months has the [employer], gas, oil, or water nubelo threatened to shut off services in your [...] care, and heating?Not hard at all04/08/2024PHQ-2AnswerDate RecordedTotal Ioxft877PRAPARE - TransportationAnswerDate RecordedIn the past 12 months, [...] a part of a household?No04/08/2024hildcareAnswerDate RecordedChildcareUnknown 08/01/2018EmploymentAnswerDate KoshhtphXyyefxlzfeJcwtzdw59/12/2019Hunger ScreeningAnswerDate RecordedWithin the past 12 months we worried whether our food would run out before we got money to buy more.Never True12/20/2024Within the past 12 months the food we bought just didn't last and we didn't have money to get more.Never True12/20/2024Purpose - LifeAnswerDate RecordedPurpose and direction in kcfpXfzsqvo50/12/2021CommentsNoSex and Gender Information ValueDate RecordedSex Assigned at BirthNot on fileLegal JxhOmaqym46/06/2015 11:52 AM EDTGender IdentityNot on fileSexual OrientationNot on filedocumented as of this encounter Plan of Treatment DateTypeDepartmentCare Team (Latest Contact Info)Newoanywejg10/18/2025 3:15 PM ESTOffice Visit [facility] [address] [place] [phone] Corine Gold MD [address] [place] [address] 01/30/2025 8:00 PM ESTClinical Support [facility] [address] [facility] [place] [phone] Corine Gold MD [address] [place] [place] [address] 02/27/2025 8:00 PM ESTClinical Support [facility] [address] [facility] [place] [address] Corine Gold MD [address] [place], [place] [phone] 03/25/2025 9:45 AM ESTOffice Visit [facility] [address] [phone] Mariah Peña, [address] [address] documented as of this encounter Goals GoalPatient Goal TypeAssociated ProblemsRecent ProgressPatient-Stated?Author home Tamiko Thompson RN Note: Evaluation of progress towards goal: Patient stated goal is to return home with [facility] for assistance with wound care documented as of this encounter Visit Diagnoses Diagnosis Moderate persistent asthma, unspecified whether complicated documented in this encounter Additional Health Concerns AssessmentNoted TimePHQ-9 Depression Total Score: 2:59 PM EDT documented as of this encounter Care Teams Team MemberRelationshipSpecialtyStart DateEnd Date Corine Gold MD [address] [place] [address] PCP - GeneralInternal Medicine03/25/24documented as of this encounter
--- OUTSIDE RECORDS SUMMARY | 2024-12-29 13:11 | XMS_ITS | Encounter Summary ---
Author Organization [facility] Address [address] [place] [address] Care Team Providers Care Business Office Associate Name Role Phone Abdifatah Brady (Historical) Primary Care Provide r Unavailable Source Comments In the event this information is protected by the Federal Confidentiality of Alcohol and Drug AbusePatient Records regulations: The Federal rules restrict any use of the information to criminally investigate or prosecute any alcohol or drug abuse patient.[facility] Reason for Visit * ReasonCommentsRefill Request Encounter Details DateTypeDepartmentCare Team (Latest Contact Info)Wixykulnqot08/09/2025Refill Neurology Headache [facility] [address] [place] [address] Griffin Lepe PA-C [address] [place] [address] Refill Request Social History Tobacco UseTypesPacks/DayYears UsedDateSmoking Tobacco: NeverSmokeless Tobacco: NeverPHQ-2AnswerDate RecordedPHQ-2 /07/2025Area Deprivation IndexAnswer Date RecordedNational Score (1-100), lower number is lower [id number]/23/2022State Score (1-10), lower number is lower [id number] from: https://www.neighborhoodatlas.[facility]/. Last address [address] [facility] [address] [address]CommentsNoSex and Gender Information ValueDate RecordedSex Assigned at BirthNot on fileLegal PugYvnaok31/01/2014 10:32 AM EDTGender IdentityNot on fileSexual OrientationNot on filedocumented as of this encounter Functional Status * Are you deaf or do you have serious difficulty hearing?AnswerDate of XalkqvibpsPqavqfIp78/10/2023 6:20 PM Katie Wells RN * Are you blind or do you have serious difficulty seeing, even when wearing glasses?AnswerDate of MttkfsuytxPrfzwdEv38/10/2023 6:20 PM Katie Wells RN * Do you have serious difficulty walking or climbing stairs?AnswerDate of DxquuorakwClnnncNe63/10/2023 6:20 PM Katie Wells RN * Do you have difficulty dressing or bathing?AnswerDate of AssessmentAuthorNo 04/01/2022 6:20 PM Katie Wells RN * Because of a physical, mental, or emotional condition, do you have difficulty doing errands alone such as visiting a doctor's office or shopping?AnswerDate of VwzxsmafijWxsrufZv06/10/2023 6:20 PM Katie Wells RN documented as of this encounter Mental Status * Because of a physical, mental, or emotional condition, do you have serious difficulty concentrating, remembering, or making decisions?AnswerEntry Date UtdcpdGx37/10/2023 6:20 PM Katie Wells RN documented in this encounter Plan of Treatment DateTypeDepartmentCare Team (Latest Contact Info)Ekrvuzmfdqn32/16/2026 9:30 AM [facility] [address] [place] [address] vyeptidocumented as of this encounter Visit Diagnoses Not on filedocumented in this encounter Care Teams Team MemberRelationshipSpecialtyStart DateEnd Date Abdifatah Brady (Historical) PCP - General05/21/13documented as of this encounter
--- OUTSIDE RECORDS SUMMARY | 2024-12-29 13:12 | XMS_ITS | CCD ---
Author Organization [facility] CliniSysd Care Team Providers Care Pearl Restorer Name Role Phone Abdifatah Brady (Historical) Primary Care Provide r Unavailable [employer], Derik Santiago Primary Care Provider [phone] DERIK WEBER Primary Care Unavailable KEVEN CHING Attending Unavailable [employer], Derik Santiago Primary Care Provider LUCILA MOTA [...] MANJINDER Admitting Unavailable PATRICIA WALSH Consulting Unavailable [facility] [place], DR GOMEZ Primary Care Unavailable HAY ., DR HARMAN Attending Unavailable HAY ., DR HARMAN Admitting Unavailable NEWSTEWART, NICHOLAS Consulting Unavailable UNLU, SINDY Consulting Unavailable ROOPA ., DR GUTIERREZ Admitting Unavailable ROOPA ., DR GUTIERREZ Consulting Unavailable [facility] Primary Care Unavailable ROOPA ., DR GUTIERREZ Attending Unavailable KUNS, DR DERIK Santiago Primary Care Unavailable ROOPA ., DR GUTIERREZ Admitting Unavailable ROOPA ., DR GUTIERREZ Attending Unavailable ROOPA ., DR GUTIERREZ Consulting Unavailable ROOPA ., DR GUTIERREZ Admitting Unavailable ROOPA ., DR GUTIERREZ Attending Unavailable NADERER, DR LAMONT Garcia Primary Care Unavailable [facility] Primary Care Unavailable HAY ., DR [...] Unavailable Lamont Blair MD Primary Care Provider [phone] Lamont Blair MD Primary Care Provider [phone] Corine Gold MD Primary Care Provider Corine Gold MD Primary Care Provider [phone] Unavailable Primary Care Provider Unavailabl e Unallocated , [place] Provider Primary Care [facility] Corine Gold MD Primary Care Provider [...] ilable Lamont Blair MD Primary Care Provider Unallocatscott MORENO [place] Provider Primary Care Provi mahsa Lamont Blair MD Unavailable Allergies Allergy ClassificationReported Allergen(s)Allergy TypeDate of OnsetReaction(s) FacilityAnti-Epileptic Agents (1 source)levETIRAcetamDrug Oozkaok46-49-4899OfuskbwDlatxzfia Clinic Work Phone: Cephalosporins (antibiotic) (1 source)CephalexinDrug Hpedcos59-13-3935SinhZmrccxnoy ClinicDextromethorphan / Pyrilamine (1 source)Dextromethorphan / PyrilamineDrug Jclvpuk34-24-8301MehwmFfswlykyu Clinic Work Phone: Dihydroergotamine (1 source)DihydroergotamineDrug Hsrtetg20-94-9530HocvgrxjrimOwhaydisg Clinic DOPamine Antagonists (1 source)MetoclopramideDrug Npibrtl13-04-8480UfrdnsxkxuiTdrlyugiz Clinic Macrolides (antibiotic) (1 source)AzithromycinDrug Kiodjhy77-07-7738Sbtmq: See [facility] vortioxetine (1 source)vortioxetineDrug Txotlnu00-07-3940KpybtYhktboogw Clinic (20 sources)Azithromycin; Translations: [AZITHROMYCIN]Drug Bktxojo14-61-3330 Hives, Other: See [facility] (20 sources)carBAMazepineDrug Umgdffv75-87-6715Akifb (See Comments)[facility] (20 sources)Cephalexin; Translations: [CEPHALEXIN]Drug Frqrlch31-77-2867Nxzqi, RashMerEvergreenHealth Monroe (20 sources)Metoclopramide; Translations: [METOCLOPRAMIDE]Drug Pvyldxa06-30-0993 Hives, Intolerance, Unknown, Rash, Other (See Comments)[facility] (20 sources)PropranololDrug Quqgbaq01-18-1075Nlmqr, Other (See Comments)[facility] (20 sources)Adhesive Tape-Silicones; Translations: [ADHESIVE TAPE-SILICONES]Drug Ngqeewt11-79-8782BdgiLwwnxuash Clinic (20 sources)Dextromethorphan / Pyrilamine; Translations: [PYRILAMINE-DEXTROMETHORPHAN]Drug Talyhkw33-99-4571EbxveYecqlzmie Clinic Work Phone: (20 sources)vortioxetine; Translations: [VORTIOXETINE]Drug Oilduyp28-27-9029 [facility] Work Phone: (20 sources)Dihydroergotamine; Translations: [DIHYDROERGOTAMINE]Drug Allergy 64-75-9400Cstjxukztjb, GI intolerance, GI Disturbance, [facility] (1 source)AzithromycinDrug AllergyThe [facility] (1 source)bee venomDrug allergy (disorder)[facility] (1 source)CephalexinDrug AllergyThe [facility] (1 source)DesonideDrug AllergyThe [facility] (1 source)IothalamateDrug AllergyThe [facility] (2 sources)Propranolol; Translations: [PROPRANOLOL]Drug Qflmzoc68-65-3230Bzl [facility] (1 source)Burden DMDrug allergy (disorder)04-03-3575Nwt [facility] (20 sources)levETIRAcetam; Translations: [LEVETIRACETAM]Drug Qhquxxi31-63-2550 Itching, [facility] Work Phone: (1 source)ValproateDrug Wpmjcqh01-70-7173KywxbHbtlwwisp Clinic Work Phone: (20 sources)busPIRoneDrug Ghgpkxr74-90-4733YuiclLLNE Healthcare Work Phone: (20 sources)CarbamazepineAllergy to prdiskblr83-92-5414YzssfetACTU Healthcare (20 sources)CiprofloxacinDrug Xjntlur31-85-7725XyuykOXZK Healthcare (20 sources)ClarithromycinAllergy to vxydxdlcm91-59-1556DF intoleranceNOMS Healthcare (20 sources)ClindamycinDrug Ediweys52-64-9770Zsxhwou, HivesNOMN Healthcare (20 sources)DextromethorphanDrug Onkvbzo32-87-0309GxnxhMWSZ Healthcare (20 sources)Dextromethorphan / PyrilamineDrug Shukfcj92-55-1307TdkjzIAEW Healthcare (20 sources)Honey bee venomAllergy to rraopcelo81-69-7510ZoghjqhIJIZ Healthcare (20 sources)LevetiracetamPropensity to adverse maicolaal07-36-6174HzvejdcLLHO Healthcare (20 sources)PropranololDrug Whhrzca76-19-6515Twiqs, Other: See CommentsNOResearch Medical Center-Brook[facility] (20 sources)vortioxetineDrug Lfsywuw01-37-6945DlxadQZXH Healthcare (20 sources)OtherAllergy to idqztuipk53-02-8335QvowqGZGQ Healthcare (20 sources)Wound Dressing AdhesiveDrug Pkqvwzo45-54-1518WlfpDOSF Healthcare (20 sources)Prochlorperazine; Translations: [PROCHLORPERAZINE]Drug Allergy 97-83-5091Wnivuplxtue, AnxietyLake County [facility] (20 sources)Adhesive agentPropensity to adverse reactions to vnkv27-14-3850FkyzSamaritan Medical Center System (20 sources)DexamethasoneDrug Prsvggb11-11-1054PogyzRvmCotber Health System (20 sources)MetoclopramideDrug Vnttacz85-32-4617BwinourAscension Standish Hospital System (20 sources)Bee Venom Protein (Honey Bee)Propensity to adverse reactions to drug 22-17-4021FwywroiogwaHmsVolkyh Health System (20 sources)eptinezumab; Translations: [EPTINEZUMAB-[facility]]Drug Fzvpkbe75-71-2695 Rash, ItchingLake County Memorial Hospital [facility] (6 sources)Adhesive agentPropensity to adverse reactions to rils05-80-7418KrnkFormerly [facility] (1 source)AzithromycinDrug Pvenfos70-82-0021UkvuwlaqtDayton [facility]opathic [facility] (1 source)CephalexinDrug Qbmnbpu55-83-6302QipnigmkbDayton Osteopathic Hospital [facility] (1 source)levETIRAcetamDrug Izsiktz86-22-2392OdzystlykDayton Osteopathic Hospital [facility] (1 source)MetoclopramideDrug Lyrwmru57-32-9814QkcvfqcgtDayton Osteopathic Hospital [facility] (1 source)ProchlorperazineDrug Mucxgtm91-42-5092KsykcnyfrDayton Osteopathic Hospital [facility] (5 sources)HaloperidolDrug Qxbzkdl97-13-7443ExdmttadhfqlorZgkXrqysz Health System (4 sources)AmoxicillinDrug Kfdnuxx34-16-9491Lpuuo, DiarrheaProMedica Health System (4 sources)Amoxicillin / ClavulanateDrug Zpsuspb54-39-1593Zvadj, Diarrhea [facility] Medications Current Medications MedicationDrug Class(es)DatesSig (Normalized)Sig (Original)[id number] 200 actuat albuterol 0.09 mg/actuat metered dose inhaler (20 sources)beta2-Adrenergic AgonistStart: 51-75-4500gyhk 2 puff(s) by mouth every four hours as neededalbuterol (VENTOLIN HFA) 90 mcg/actuation inhaler Indications: Moderate persistent asthma, unspecified whether complicated INHALE TWO PUFFS BY MOUTH EVERY 4 HOURS NEEDED 18 g 12/19/2024 ActiveStart: 05-27-2024 End: 98-22-8804syoe 2 puff(s) by mouth every four hours as neededalbuterol (VENTOLIN HFA) 90 mcg/actuation inhaler Indications: Moderate persistent asthma, unspecified whether complicated INHALE TWO PUFFS BY MOUTH EVERY 4 HOURS NEEDED 18 g 11 09/30/2024 ActiveStart: 73-02-3082kkdb 2 puff(s) by inhalation every four hoursalbuterol HFA 90 mcg/act inhaler Inhale 2 puffs every 4 (four) hours if needed 05/27/2024 ActiveStart: 53-21-6801osly 3 mL by inhalation four times daily as needed for wheezingalbuterol (PROVENTIL,VENTOLIN) 2.5 mg /3 mL (0.083 %) nebulizer solution Indications: Moderate asthma with acute exacerbation, unspecified whether persistent Inhale 3 mL (2.5 mg total) by nebulization 4 (four) times a day as needed for wheezing. 360 mL 10 03/20/2024 ActiveStart: 16-65-3749myzqunrlj (2.5 MG/3ML) 0.083% nebulizer solution Inhale 2.5 mg 4 (four) times a day as needed 03/20/2024 ActiveStart: 12-12-2023 End: 60-01-1584cgcl 2 puff(s) by inhalation every four hours for wheezing albuterol HFA 90 mcg/act inhaler Indications: Severe persistent asthma without complication (CMS/HCC) Inhale 2 puffs every 4 (four) hours if needed for wheezing or shortness of breath 8.5 g 3 12/12/2023 02/28/2024 DiscontinuedStart: 11-29-8596mkyr 2 puff(s) by inhalation every six hours as needed for wheezing albuterol sulfate 90 mcg/actuation breath activated powder inhaler Inhale 2 Puffs as instructed every 6 hours as needed for wheezing/shortness of breath. 08/16/2023 ActiveStart: 03-04-2023 End: 30-95-2689posmawszg (2.5 MG/3ML) 0.083% nebulizer solution Indications: Severe persistent asthma without complication (CMS/HCC) Take 3 mL (2.5 mg) by nebulization every 6 (six) hours if needed for wheezing 75 mL 1 03/04/2023 02/28/2024 DiscontinuedStart: 03-04-2023 End: 59-36-9549gpzi 2 puff(s) by inhalation every four hours for wheezing albuterol HFA 90 mcg/act inhaler Indications: Severe persistent asthma without complication (CMS/HCC) Inhale 2 puffs every 4 (four) hours if needed for wheezing 8.5 g 3 11/06/2023 12/06/2023 ActiveStart: 06-07-2022 End: 45-10-2858gznr 2 puff(s) by mouth every four hours as neededalbuterol (VENTOLIN HFA) 90 mcg/actuation inhaler Indications: Moderate persistent asthma, unspecified whether complicated INHALE TWO PUFFS BY MOUTH EVERY 4 HOURS NEEDED 18 g 3 05/01/2024 05/24/2024 Discontinued (Reorder)Start: 06-07-2022 End: 48-01-7945ivkt 0.63 mg by inhalation every six hours as needed for wheezing and dyspnea and dyspneaalbuterol (ACCUNEB) 0.63 mg/3 mL nebulizer solution Indications: SOB (shortness of breath) Inhale 3mL (0.63 mg total) by nebulization every 6 (six) hours as needed for wheezing. 75 mL 1 06/07/2022 Discontinuedamitriptyline hydrochloride 100 mg oral tablet (5 sources)Tricyclic AntidepressantStart: 95-28-4531xgxn 1 tablet by mouth at bedtimeamitriptyline (Elavil) 100 MG tablet Take 100 mg by mouth at bedtime 06/24/2024 Activeamoxicillin 500 mg oral capsule (1 source)Penicillin-class AntibacterialStart: 10-24-2024 End: 81-27-1571luzp 1 capsule by mouth three times dailyamoxicillin (AMOXIL) 500 mg capsule Indications: Left otitis media, unspecified otitis media type Take 1 capsule (500 mg total) by mouth 3 (three) times a day for 7 days. 21 capsule 10/24/2024 10/31/2024 Activeamoxicillin 875 mg / clavulanate 125 mg oral tablet (6 sources)Penicillin-class AntibacterialStart: 05-21-2024 End: 96-65-4313untd 1 tablet by mouth once in the morningamoxicillin-pot clavulanate (AUGMENTIN) 875-125 mg per tablet Indications: Moderate persistent asthma with acute exacerbation , Acute pansinusitis, recurrence not specified Take 1 tablet by mouth in the morning and 1 tablet before bedtime. Do all this for 10 days. 20 tablet 05/21/2024 05/31/2024 ActiveStart: 04-10-2024 End: 51-73-3057wapx 1 tablet by mouth every eight hoursamoxicillin-pot clavulanate (AUGMENTIN) 875-125 mg per tablet Take 1 tablet by mouth every 8 (eight) hours for 7 days. 21 tablet 04/10/2024 04/17/2024 Activebaclofen 10 mg oral tablet (20 sources)gamma-Aminobutyric Acid-ergic AgonistStart: 04-25-2024 End: 15-20-8549hehb 1 tablet by mouth once dailybaclofen (LIORESAL) 10 mg tablet Indications: Muscle spasm TAKE 1 TABLET BY MOUTH NIGHTLY 30 tablet3 10/02/2024 ActiveStart: 11-10-2023 End: 83-06-9854xwac 1 tablet by mouth in the morning, [...] 90 tablet 2 11/10/2023 ActiveStart: 07-14-2023 End: 15-30-9420dwqa 1 tablet by mouth in the morning, [...] 90 tablet 2 07/14/2023 ActiveStart: 11-22-2021 End: 30-52-7543srjr 1 tablet by mouth three times daily at bedtimebaclofen (Lioresal) 10 MG tablet Indications: Pelvic pain in female TAKE 1 TABLET BY MOUTH THREE TIMES DAILY (IN THE MORNING, IN THE EVENING and BEFORE bedtime) 90 tablet 2 02/15/2024 02/28/2024 DiscontinuedComment on above:Take 10 mg by mouth three times a day as needed.benzonatate 200 mg oral capsule (16 sources)Non-narcotic AntitussiveStart: 12-12-2023 End: 97-04-2157byxy 1 capsule by mouth three times daily as needed for cough benzonatate (Tessalon) 200 MG capsule Indications: COVID-19 Take 1 capsule (200 mg) by mouth 3 (three) times a day as needed for cough Do not crush or chew. 30 capsule 1 01/24/2024 02/28/2024 Discontinuedonabotulinumtoxina 200 unt injection (20 sources)Acetylcholine Release InhibitorStart: 74-61-5296bdzwlhozaxtp toxin type A 200 Units injection (BOTOX)budesonide 0.5 mg/ml inhalation suspension (2 sources)CorticosteroidStart: 21-33-1005werx 2 mL by inhalation in the morning budesonide (PULMICORT) 1 mg/2 mL nebulizer solution Indications: Moderate persistent asthma withoutcomplication Inhale 2 mL (1 mg total) by nebulization in the morning. 60 mL 6 12/17/2024 Ouxxvn60 hr carBAMazepine 100 mg extended release oral tablet (7 sources)Mood StabilizerStart: 54-35-8370vfjf 2 tablets by mouth in the morning, then take 2 tablets by mouth every twelve hours at bedtimecarBAMazepine XR (TEGretol XR) 100 mg 12 hr tablet Take 2 tablets (200 mg total) by mouth in the morning and 2 tablets (200 mg total) before bedtime. 120 tablet 11/25/2024 ActiveStart: 37-33-5819luek 1 tablet by mouth in the morning, then take 1 tablet by mouth every twelve hours at bedtimecarBAMazepine XR (TEGretol XR) 100 MG 12 hr tablet Take 100 mg by mouth in the morning and 100 mg before bedtime. 08/28/2024 Activecetirizine hydrochloride 10 mg oral tablet (20 sources)Histamine-1 Receptor AntagonistStart: 06-08-2022 End: 47-51-0782hwxw 1 tablet by mouth in the morningcetirizine (ZyrTEC) 10 mg tablet Take 1 tablet (10 mg total) by mouth in the morning. 30 tablet 06/08/2022 Activechlorzoxazone 500 mg oral tablet (20 sources)Muscle RelaxantStart: 07-10-2023 End: 33-34-5558upmx 1 tablet by mouth twice daily as needed for muscle spasms chlorzoxazone (Parafon Forte) 500 MG tablet Take 500 mg by mouth 2 (two) times a day as needed for muscle spasms 05/31/2024 ActiveStart: 10-12-2022 End: 10-26-0180kkmu 1 tablet by mouth three times daily [...] forrescue. 30 tablet 0 12/09/2022 Active End: 41-82-6767tlgh 1 tablet by mouth four times daily as neededchlorzoxazone (PARAFON FORTE) 500 mg tablet Take 1 tablet (500 mg total) by mouth 4 (four) times a day as needed. 04/25/2024 DiscontinuedComment on above:Take 1 tablet by mouth up to three times a day as needed, immediately at onset of headache for rescue.clindamycin 300 mg oral capsule (2 sources)Lincosamide AntibacterialStart: 04-02-2024 End: 21-65-6106mvzc 1 capsule by mouth in the morning, [...] mg oral tablet (3 sources)CorticosteroidStart: 12-12-2023 End: 73-36-8438kraf 1 tablet by mouth once dailydexAMETHasone (Decadron) 6 MG tablet Indications: COVID-19 Take 1 tablet (6 mg) by mouth Daily for 6 days 6 tablet 12/12/2023 01/09/2024 Discontinueddexamethasone 1 mg/ml / tobramycin 3 mg/ml ophthalmic suspension (11 sources)Aminoglycoside Antibacterial, CorticosteroidStart: 05-12-2023 End: 43-71-2243prod 1 drop(s) into the eye(s) every six hourstobramycin- dexAMETHasone (Tobradex) ophthalmic suspension instill 1 drop into both eyes every 6 hours for 7 days 05/12/2023 01/09/2024 DiscontinueddiazePAM 5 mg oral tablet (20 sources)BenzodiazepineStart: 03-28-2024 End: 33-98-1285ngwweHFP (VALIUM) tablet 5 mgStart: 11-23-2021 End: 01-15-9649oemnyJFK (VALIUM) 10 mg tablet 11/23/2021 Activetake 0.5 tablet by mouth at bedtimediazePAM (VALIUM) 10 mg tablet Take 0.5 tablets (5 mg total) by mouth in the morning and at bedtime. Active End: 52-02-0746lwhscQKW (Valium) 2 MG tablet Take by mouth every 8 (eight) hours if needed for anxiety. 01/09/2024iscontinuedtake 1 tablet by mouth every six hours as needed for anxietydiazePAM (VALIUM) 5 MG tablet Take 5 mg by mouth every 6 hours as needed for Anxiety. 0 Suspendeddoxycycline hyclate 100 mg oral tablet (6 sources)Tetracycline-class DrugStart: 01-23-2024 End: 03-98-9446guvhxqgodjd (Vibra-Tabs) 100 MG tablet Indications: Mild persistent asthma with (acute) exacerbation (CMS/HCC) Take 1 tablet (100 mg) by mouth in the morning and 1 tablet (100 mg) before bedtime. Do all this for 10 days. Take with a full glass of water and do not lie down for at least 30 minutes after.. 20 tablet 01/23/2024 02/09/2024 Cyytgxpdvvryrka696667 0.3 ml EPINEPHrine 1 mg/ml auto-injector (20 sources)alpha-Adrenergic Agonist, beta-Adrenergic Agonist, Catecholamine Start: 48-73-4228QQCGZBFseav (EPIPEN) 0.3 mg/0.3 mL auto-injector Indications: Allergic reaction, sequela 0.3 mL (0.3 mg total) by other route as needed (exposure to allergen). 2 each 1 08/26/2024 ActiveStart: 06-07-2022 End: 41-39-2114BCGOVLLkwrz (EPIPEN) 0.3 mg/0.3 mL auto-injector 0.3 mL (0.3 mg total) by other route as needed (exposure to allergen). 2 each 1 06/07/2022 04/25/2024 Discontinuedestradiol 1 mg oral tablet (20 sources)EstrogenStart: 05-15-2024 End: 50-20-7132akje 1 tablet by mouth in the morningestradioL (ESTRACE) 1 mg tablet Indications: Menopausal symptoms Take 1 tablet (1 mg total) by mouth in the morning. 30 tablet 3 05/15/2024 ActiveStart: 04-15-2024 End: 34-27-7562rjzlyhkbX (VIVELLE-DOT) 0.05 mg/24 hr Indications: Menopausal symptoms Place 1 patch on the skin 2 (two) times a week. 8 patch 04/15/2024 04/25/2024 DiscontinuedStart: 04-11-2024 End: 04-50-0488pabocmhxG (VIVELLE-DOT) 0.0375 mg/[address] 1 patch [...] between applications chicho particular site.Start: 06-29-2023 End: 40-47-9544yaaf 1 tablet by mouth once daily in the morningestradiol (Estrace) 1 MG tablet Indications: Vaginal discharge , Pelvic pain in female take 1 tablet by mouth every morning 30 tablet 3 06/29/2023 02/28/2024 Discontinuedfluticasone propionate 0.05 mg/actuat metered dose nasal spray (20 sources)CorticosteroidStart: 82-92-8304ehmw 1 spray(s) nasal route every other dayfluticasone propionate (FLONASE) 50 mcg/actuation nasal spray Indications: Seasonal allergic rhinitis, unspecified trigger administer 1 spray IN EACH NOSTRIL EVERY OTHER DAY 16 g 2 06/10/2024 ActiveStart: 96-95-9366tggo 1 spray(s) nasal route once dailyfluticasone (Flonase) 50 MCG/ACT nasal spray Administer 1 spray into each nostril Daily 06/10/2024 ActiveStart: 06-06-2024 End: 97-10-4620gdxq 1 spray(s) nasal route every other dayfluticasone propionate (FLONASE) 50 mcg/actuation nasal spray Indications: Seasonal allergic rhinitis, unspecified trigger Administer 1 spray into each nostril every other day. 18.2 mL 2 06/06/2024 06/10/2024 Qqskijnnsawlmmhgwtondto-ivtotveuw-tcuuqlri (TRELEGY ELLIPTA) 200-62.5-25 mcg blister with device (20 sources)Start: 03-20-2024 End: 24-77-1254nalt 1 puff(s) by inhalation in the morning ukmkdkygzzu-zwdemheww-vjersmym (TRELEGY ELLIPTA) 200-62.5-25 mcg blister with device Indications: Moderate asthma with acute exacerbation, unspecified whether persistent Inhale 1 puff in the morning.60 each 03/20/2024 12/10/2024 DiscontinuedStart: 35-80-3308wcjw 1 puff(s) by inhalation in the morning qzeooeirrqb-hbhazocyc-hnqhvojz (TRELEGY ELLIPTA) 200-62.5-25 mcg blister with device Indications: Moderate asthma with acute exacerbation, unspecified whether persistent Inhale 1 puff in the morning.60 each 03/20/2024Start: 03-20-2024 take 1 puff(s) by inhalation in the nrujxawfezbchwmyxe-zeoezwhnf-umsobbju (TRELEGY ELLIPTA) 200-62.5-25 mcg blister with device Indications: Moderate asthma with acute exacerbation, unspecified whether persistent Inhale 1 puff in the morning.60 each 11 03/20/2024 Pdrtxzqkuxuheuswh-xabittwed-zadogigi (TRELEGY ELLIPTA) 200-62.5-25 mcg blister with device (5 sources)Start: 96-85-5481ujzi 1 puff(s) by mouth in the morning jbmeoierncn-xicbhvjfc-xradmbgc (TRELEGY ELLIPTA) 200-62.5-25 mcg blister with device Indications: Moderate asthma with acute exacerbation, unspecified whether persistent INHALE 1 PUFF BY MOUTH IN THEMORNING 60 each 12/10/2024 Gvzzaj92 actuat formoterol fumarate 0.005 mg/actuat / mometasone furoate 0.1 mg/actuat metered dose inhaler (20 sources)Corticosteroid, beta2-Adrenergic AgonistStart: 04-26-2023 End: 37-08-6610ebaf 2 puff(s) by inhalation in the morningDulera 100-5 MCG/ACT inhaler Inhale 2 puffs in the morning and 2 puffs before bedtime. 04/26/2023 Discontinuedfurosemide 40 mg oral tablet (10 sources)Loop DiureticStart: 01-23-2024 End: 59-30-1777hnul 1 tablet by mouth once daily as needed for edemafurosemide (Lasix) 40 MG tablet Indications: Generalized edema Take 1 tablet (40 mg) by mouth Dailyas needed (Edema) 30 tablet 3 01/23/2024 02/28/2024 Dhcwlnpetnjw11 hr guaiFENesin 600 mg extended release oral tablet (9 sources)Start: 10-24-2024 End: 82-74-5925fley 1 tablet by mouth onceguaiFENesin (MUCINEX) 600 mg tablet extended release 12hr Take 1 tablet (600 mg total) by mouth every 12 (twelve) hours for 10 days. 20 tablet 10/24/2024 11/03/2024 ActiveStart: 04-21-2022 End: 86-53-8272ieye 1 tablet by mouth onceguaiFENesin (MUCINEX) 600 mg tablet extended release 12hr Take 1 tablet (600 mg total) by mouth every 12 (twelve) hours. 60 tablet 1 04/21/2022 03/25/2024 Discontinued (Therapy completed) Hydrocortisone (3 sources)CorticosteroidStart: 09-25-2023 End: 28-14-0412Kofvllfxgwgcsv 2 % cream Indications: Rash Apply 1 application topically in the morning and 1 application before bedtime. 28 g 09/25/2023 10/25/2023 Activehydrocortisone 10 mg/ml / neomycin 3.5 mg/ml / polymyxin b 22986 unt/ml otic solution (1 source)Aminoglycoside Antibacterial, Polymyxin-class Antibacterial, CorticosteroidStart: 10-24-2024 End: 62-55-2509crfkulej-polymyxin-HC (CORTISPORIN) otic solution Indications: Left otitis media, unspecified otitis media type Administer 3 drops into the left ear 3 (three) times a day for 7 days. 10 mL Active ibuprofen 800 mg oral tablet (20 sources)Nonsteroidal Anti-inflammatory DrugStart: 12-19-1313rejy 1 tablet by mouth every six hours as needed for painibuprofen 800 MG tablet Take 800 mg by mouth every 6 (six) hours if needed for moderate pain 04/15/2024 ActiveStart: 04-08-2024 End: 73-57-7105pfqw 1 tablet by mouth every six hours as needed for kllk744 mg, oral, Every 6 hours PRN, moderate pain - pain scale 4-6, Starting on Mon04/08/24 at 1825, Look-alike/sound-alike medication - verify indication for use. Take/Give with food or milk.Start: 02-10-2024 End: 22-37-3484fiqu 1 tablet by mouth three times dailyibuprofen (MOTRIN) 800 mg tablet Indications: Post-op pain Take 1 tablet (800 mg total) by mouth 3 ( three) times a day. 21 tablet 04/15/2024 Activeketoconazole 20 mg/ml medicated shampoo (20 sources)Azole AntifungalStart: 07-77-1037ccvhghlysdqb (NIZORAL) 2 % shampoo Apply 1 Application topically 2 (two) times a week. Apply to damp skin, lather, leave on 5 minutes, and rinse 120 mL 04/25/2024 ActiveStart: 11-26-2021 End: 41-45-9745kentnlntqdad (NIZORAL) 2 % shampoo APPLY TO AFFECTED AREA(S) LATHER AND LEAVE IN PLACE FOR 5 MINUTES AND THEN RINSE OFF WITH WATER. DO THIS 2 TIMES A WEEK FOR 4 WEEKS 120 mL 11/26/2021 04/25/2024 Jyvkyzbqmblw199 actuat levalbuterol 0.045 mg/actuat metered dose inhaler (9 sources)beta2-Adrenergic AgonistStart: 13-67-7811vmzt 1-2 puff(s) by inhalation every four hours as needed for wheezinglevalbuterol (XOPENEX HFA) 45 mcg/actuation inhaler Indications: Moderate persistent asthma without complication Inhale 1-2 puffs every 4 (four) hours as needed for wheezing. 15 g 11 12/20/2024 ActiveStart: 01-27-2022 End: 47-37-8621azae 1-2 puff(s) by inhalation every four hours as needed for wheezinglevalbuterol (XOPENEX HFA) 45 mcg/actuation inhaler Inhale 1-2 puffs every 4 (four) hours as neededfor wheezing. 15 g 1 01/27/2022 03/25/2024 Discontinued (Therapy completed)lidocaine 0.05 mg/mg topical ointment (20 sources)Antiarrhythmic, Amide Local AnestheticStart: 96-55-6825gpkltiitv (XYLOCAINE) 5 % ointment Indications: Post-operative pain Apply 1 Application topically as needed for pain. 35.44 g 04/24/2024 ActiveStart: 10-20-2021 lidocaine 4 % external patch 1 patchloperamide hydrochloride 2 mg oral capsule (1 source)Opioid AgonistStart: 83-04-9659giztikbzya (IMODIUM) capsule 2 mg loratadine 10 mg oral tablet (19 sources)Start: 88-64-1703uwlk 1 tablet by mouth once daily as needed loratadine (CLARITIN) 10 mg tablet Indications: Seasonal allergic rhinitis, unspecified trigger Take 1 tablet (10 mg total) by mouth daily as needed for allergies. 90 tablet 1 06/06/2024 Ymgmzz14 hr loratadine 10 mg / pseudoephedrine sulfate 240 mg extended release oral tablet (6 sources)alpha-Adrenergic AgonistStart: 12-82-3088ckay 1 tablet by mouth once in the morning, then take 1 tablet by mouth every twenty-four hoursloratadine- pseudoephedrine (CLARITIN-D 24-hour) 10-240 mg per 24 hr tablet Indications: Moderate persistent asthma without complication , Seasonal allergic rhinitis, unspecified trigger Take 1 tabletby mouth in the morning. 30 tablet 2 12/20/2024 ActiveStart: 05-21-2024 End: 05-67-3064tghv 1 tablet by mouth once in the morning, then take 1 tablet by mouth every twenty-four hoursloratadine-pseudoephedrine (CLARITIN-D 24-hour) 10-240 mg per 24 hr tablet Indications: Acute pansinusitis, recurrence not specified Take 1 tablet by mouth in the morning for 21 days. 21 tablet 202406/11/2024 ActiveLumateperone Tosylate (Caplyta) 10.5 MG capsule (11 sources) End: 75-55-7655qrkb 1 capsule by mouth in the morningLumateperone Tosylate (Caplyta) 10.5 MG capsule Take 10.5 mg by mouth in the morning. 01/09/2024 Dis continuedtake 1 capsule by mouth in the morningLumateperone Tosylate (Caplyta) 10.5 MG capsule Take 10.5 mg by mouth in the morning. Activemagnesium oxide 400 mg oral capsule (20 sources)Start: 55-03-6503cbmd 1 capsule by mouth once daily at bedtime magnesium oxide 400 mg magnesium cap Take 1 capsule by mouth daily at bedtime. 90 capsule 3 06/04/2024 ActiveStart: 07-10-2023 End: 08-27-6594yebw 1 capsule by mouth once daily at bedtimemagnesium oxide 400 mg magnesium cap Take 1 capsule by mouth daily at bedtime. 90 capsule 3 07/10/19 24 05/31/2024 DiscontinuedComment on above:magnesium 400 mg (as magnesium oxide) capsulemethocarbamol 500 mg oral tablet (3 sources)Muscle RelaxantStart: 09-12-2022 End: 90-10-2068mxqj 1 tablet by mouth twice dailymethocarbamol (ROBAXIN) 500 mg tablet Take 1 tablet by mouth twice daily. 60 tablet 2 09/12/2022 10/12/2022 Discontinued (Lack of Efficacy)Comment on above:Take 1 tablet by mouth twice daily.metroNIDAZOLE 500 mg oral tablet (3 sources)Nitroimidazole AntimicrobialStart: 07-01-2024 End: 13-96-7586omad 1 tablet by mouth in the morningmetroNIDAZOLE (Flagyl) 500 MG tablet Indications: BV (bacterial vaginosis) Take 1 tablet (500 mg) by mouth in the morning and 1 tablet (500 mg) before bedtime. Do all this for 7 days. Do not drink alcohol while taking this medication. 14 tablet 07/01/2024 07/08/2024 ActiveStart: 04-08-2024 End: 82-04-2950325 mg, intravenous, at 100 mL/hr, Administer over 60 Minutes, Once, On Mon04/08/24 at 1450, For 1 dose, Look-alike/sound-alike medication - verify indication for use., Indication: Intra-abdominalmineral oil 0.03 mg/mg / petrolatum 0.94 mg/mg ophthalmic ointment (1 source)Start: 29-70-3158hbdkb petrolatum-mineral oiL (SYSTANE NIGHTTIME) 94-3 % ointment Indications: Watery eyes Administer 1 Application (0.25 inches total) to both eyes nightly. 3.5 g 1 12/20/2024 Activemupirocin 0.02 mg/mg topical ointment (13 sources)RNA Synthetase Inhibitor AntibacterialStart: 64-90-9938qdnjpszod (BACTROBAN) 2 % ointment Indications: Eye infection, bilateral Apply 1 Application topically in the morning and 1 Application before bedtime. 22 g 1 07/24/2024 ActiveStart: 05-02-2024 End: 56-64-3815cvgbpqxvd (BACTROBAN) 2 % ointment Indications: Postoperative infection, unspecified type, subsequent encounter Apply 1 Application topically in the morning and 1 Application before bedtime. Do all this for 7 days. 30 g 05/02/2024 05/02/2024 Discontinued (Reorder)Nirmatrelvir&Ritonavir 300/100 (Paxlovid, 300/100,) 20 x 150 MG & 10 x 100MG tablet therapypack (3 sources)Start: 12-12-2023 End: 45-96-7932Kqzyrjnltpeb&Ritonavir 300/100 (Paxlovid, 300/100,) 20 x 150 MG & 10 x 100MG tablet therapypack Indications: COVID-19 Take 1 each by mouth See administration instructions 1 each 12/12/2023 01/09/2024 DiscontinuedStart: 02-87-3956Bzlnuczutafz&Ritonavir 300/100 (Paxlovid, 300/100,) 20 x 150 MG & 10 x 100MG tablet therapypack Indications: COVID-19 Take 1 each by mouth See administration instructions 1 each 12/12/2023 Activeomeprazole 40 mg delayed release oral capsule (20 sources)Proton Pump InhibitorStart: 03-20-2024 End: 02-15-9455zsqs 1 capsule by mouth at bedtimeomeprazole (PriLOSEC) 40 mg capsule Indications: Gastroesophageal reflux disease without esophagitis Take 1 capsule (40 mg total) by mouth in the morning and at bedtime. 60 capsule 3 12/17/2024 ActiveStart: 01-27-2022 End: 31-98-7059ujwd 1 capsule by mouth in the morningomeprazole (PriLOSEC) 20 mg capsule Take 1 capsule (20 mg total) by mouth in the morning. 30 capsule 1 01/27/2022 04/08/2024 Discontinued (Therapy completed)ondansetron (ZOFRAN-ODT) disintegrating tablet 4 mg (1 source)Start: 91-30-4131xtwrxkqauvn (ZOFRAN-ODT) disintegrating tablet 4 mg12 hr orphenadrine citrate 100 mg extended release oral tablet (20 sources)Muscle RelaxantStart: 03-17-2023 End: 44-17-6715oxzd 1 tablet by mouth twice daily as needed, then take 1 tablet by mouth every twelve hours as neededorphenadrine (Norflex) 100 MG 12 hr tablet Take 100 mg by mouth 2 (two) times a day as needed 04/26/2023 02/28/2024 DiscontinuedStart: 85-27-9833nlbl 1 tablet by mouth every twelve hours as needed orphenadrine ER (NORFLEX) 100 mg tablet Take 1 tablet by mouth two times a day as needed. 30 tablet5 12/12/2022 ActiveComment on above:Take 1 tablet by mouth two times a day as needed.oxyCODONE hydrochloride 5 mg oral tablet (20 sources)Opioid AgonistStart: 04-29-2024 End: 66-42-0133vtmx 1 tablet by mouth every six hours [...] 12 tablet 04/29/2024 05/02/2024 ActiveStart: 03-28-2024 End: 02-86-5220hdqf 1 tablet by mouth every four hours [...] glycol 3 mg/ml ophthalmic solution (2 sources)Start: 75-14-0203ikf 400-propylene glycol, PF, (SYSTANE ULTRA, PF,) 0.4-0.3 % dropperette Indications: Watery eyes Administer 1 drop to both eyes 3 (three) times a day. 30 each 1 12/20/2024 ActiveStart: 12-20-2024 End: 56-91-9015gex 400-propylene glycol, PF, (SYSTANE ULTRA, PF,) 0.4-0.3 % dropperette Indications: Watery eyes Administer 1 drop to both eyes as needed (for watery eyes and burning). 30 each 1 12/20/2024 12/20/2024 Discontinued polymyxin b 05245 unt/ml / trimethoprim 1 mg/ml ophthalmic solution (3 sources)Dihydrofolate Reductase Inhibitor Antibacterial, Polymyxin-class AntibacterialStart: 30-46-9660czlmwzkwsdtl-polymyxin b (Polytrim) ophthalmic solution 07/24/2024 ActiveStart: 07-24-2024 End: 91-80-4944vhxxoqrsylyc-polymyxin B (POLYTRIM) 10,000 unit- 1 mg/mL drops Indications: Eye infection, bilateral Administer 1 drop to both eyes in the morning and 1 drop at noon and 1 drop in the evening and 1 drop before bedtime. Do all this for 5 days. 10 mL 07/24/2024 07/29/2024 Activemicroencapsulated potassium chloride 20 meq extended release oral tablet (2 sources)Start: 03-26-2024 End: 80-42-8317bftd 1 tablet by mouth in the morningpotassium chloride (KLOR-CON M 20) 20 MEQ CR tablet Take 1 tablet (20 mEq total) by mouth in the morning for 2 days. 2 tablet 03/26/2024 03/28/2024 ActivepredniSONE 10 mg oral tablet (18 sources)Start: 74-10-4200jtmbzaAQTZ (DELTASONE) 10 mg tablet Indications: Moderate persistent asthma without complication Take 3 tablets once daily for 3 days, then 2 tablets once daily for 3 days then 1 tablet daily 19 tablet 12/20/2024 ActiveStart: 10-24-2024 End: 54-02-1617hnyc 2 tablets by mouth in the morningpredniSONE (DELTASONE) 20 mg tablet Indications: Mild asthma with exacerbation, unspecified whether persistent Take 2 tablets (40 mg total) by mouth in the morning for 5 days. 10 tablet 10/24/2024 10/29/2024 ActiveStart: 05-21-2024 End: 39-37-2702flrq 1 tablet by mouth in the morningpredniSONE (DELTASONE) 20 mg tablet Indications: Moderate persistent asthma with acute exacerbationTake 1 tablet (20 mg total) by mouth in the morning for 5 days. 5 tablet 05/21/2024 05/26/2024 ActiveStart: 01-23-2024 End: 05-75-6171aujm 1 tablet by mouth once dailypredniSONE (Deltasone) 50 MG tablet Indications: Mild persistent asthma with (acute) exacerbation (CMS/HCC) Take 1 tablet (50 mg) by mouth Daily for 6 days 6 tablet 01/23/2024 01/29/2024 ActiveStart: 83-77-6462ucop 6 tablets by mouth once daily, then [...] x 3 days 39 tablet 11/15/2023 ActiveStart: 76-11-9305yxzo 6 tablets by mouth once daily, then [...] days 39 tablet 11/15/2023 ActiveStart: 10-10-2023 End: 75-35-3473konv 6 tablets by mouth once daily, then [...] mg oral capsule (2 sources)ProgesteroneStart: 09-03-2024 End: 88-91-7532qpkt 1 capsule by mouth once dailyprogesterone (Prometrium) 100 MG capsule Indications: Hot flashes due to surgical menopause Take 1 capsule (100 mg) by mouth Daily 30 capsule 11 09/03/2024 09/03/2025 Activepromethazine hydrochloride 25 mg oral tablet (20 sources)PhenothiazineStart: 06-04-2024 End: 20-05-6359yqkl 1 tablet by mouth every four hours as needed for nausea promethazine (PHENERGAN) 25 mg tablet Indications: Intractable chronic migraine without aura and without status migrainosus Take 1 tablet by mouth every 4 hours as needed. FOR NAUSEA 90 tablet 5 06/04/2024 ActiveStart: 08-18-2023 End: 50-82-3093fmjo 1 tablet by mouth every four hours as needed for nausea promethazine (PHENERGAN) 25 mg tablet Indications: Intractable chronic migraine without aura and without status migrainosus Take 1 tablet by mouth every 4 hours as needed. FOR NAUSEA 90 tablet 5 11/10/2023 05/31/2024 DiscontinuedStart: 05-13-2023 End: 74-55-6849ukqd 1 tablet by mouth every six hours as needed for nausea and vomitingpromethazine (PHENERGAN) 25 mg tablet Take 1 tablet (25 mg total) by mouth every 6 (six) hours as needed for nausea or vomiting. 15 tablet 08/10/2023 04/25/2024 DiscontinuedStart: 03-17-2023 End: 28-64-2406iyxi 1 tablet by mouth every six hours as neededpromethazine (Phenergan) 12.5 MG tablet Take 12.5 mg by mouth every 6 (six) hours if needed 04/02/2023 02/28/2024 DiscontinuedStart: 06-22-2022 End: 67-48-3172aqzq 1 tablet by mouth every six hours as neededpromethazine (PHENERGAN) 12.5 mg tablet Take 1 tablet by mouth every 6 hours as needed. 90 tablet Active End: 63-08-3267tfba 25 mg rectal route every six hours as needed for nausea and vomitingpromethazine (Phenergan) 25 MG suppository Insert 25 mg into the rectum every 6 (six) hours if needed for nausea or vomiting ActiveComment on above:Take 12.5 mg by mouth every 6 hours as needed.Take 1 tablet by mouth every 6 hours as needed.72 hr scopolamine 0.0139 mg/hr transdermal system (20 sources)AnticholinergicStart: 04-10-9832cgfsfaizngd (TRANSDERM-SCOP) patch 1.5 mg/72 hr (delivers 1 mg over 3 days) Indications: Intractable chronic migraine without aura and with status migrainosus , Nausea Apply 1 Patch as directed every72 hours. APPLY 1 DISC BEHIND THE EAR AT LEAST 4 HOURS PRIOR TO EXPOSURE AND EVERY 3 DAYS NEEDED. 4 Patch 2 05/10/2024 ActiveStart: 03-18-2024 End: 88-48-4719kjpsn 1 dose transdermal route once dailyscopolamine (TRANSDERM- SCOP) 1 mg/[address] 1 patch on the skin every third day. 05/10/2024 Active scopolamine (Transderm-Scop) 1 mg/72 hr patch [address] 1 patch on the skin every 3rd (third) day Activeterconazole 4 mg/ml vaginal cream (1 source)Azole AntifungalStart: 01-15-2024 End: 81-10-7311nzxnffczgav (Terazol 7) 0.4 % vaginal cream Indications: Yeast infection Insert 1 applicator into the vagina at bedtime for 7 days 45 g 01/15/2024 01/22/2024 Xrwosg54 actuat tiotropium 0.83422 mg/actuat inhalation spray (20 sources)AnticholinergicStart: 04-26-2023 End: 77-64-2325Dpxdktw Respimat 1.25 MCG/ACT inhaler inhale 2 puffs by mouth once daily 04/26/2023 02/28/2024 DiscontinuedtraMADol hydrochloride 50 mg oral tablet (8 sources)Opioid AgonistStart: 01-09-2024 End: 67-49-3694jjmj 1 tablet by mouth four times daily as needed for pain traMADol (Ultram) 50 MG tablet Indications: Pain, dental Take 1 tablet (50 mg) by mouth 4 (four) times a day as needed for severe pain for up to 7 days 28 tablet 01/22/2024 01/29/2024 Activeubrogepant 100 mg oral tablet (20 sources)Start: 05-03-2024 End: 51-28-3079hnwibnignz (UBRELVY) 100 mg tablet 05/03/2024 Activezavegepant (ZAVZPRET) 10 mg/actuation nasal spray (6 sources)Start: 85-83-5130cxpdauyjnk (ZAVZPRET) 10 mg/actuation nasal spray Indications: Intractable chronic migraine withoutaura and with status migrainosus Use one nasal spray at migraine onset. May use once per 24 hours. 6 each 08/08/2024 8:59 AM EDT 08/02/2024 ActiveStart: 82-96-4840amswtyggpw (ZAVZPRET) 10 mg/actuation nasal spray Indications: Intractable chronic migraine withoutaura and with status migrainosus Use one nasal spray at migraine onset. May use once per 24 hours. 6 each 08/02/2024 ActiveZOLMitriptan 5 mg/actuat nasal spray (20 sources)Serotonin-1b and Serotonin-1d Receptor AgonistStart: 06-04-2024 ZOLMitriptan (ZOMIG) 5 mg nasal spray Use 1 [place] in the nose as needed at onset of migraine headache. If symptoms persist or return, may repeat dose in other nostril after 2 hours. Maximum of 2 sprays per 24 hours 12 each 06/04/2024 ActiveStart: 03-17-2023 End: 44-39-2636AQRLbuhufwvq (ZOMIG) 5 mg nasal spray Use 1 [place] in the nose as needed at onset of migraine headache. If symptoms persist or return, may repeat dose in other nostril after 2 hours. Maximum of 2 sprays per 24 hours 12 Each 5 01/30/2024 05/31/2024 DiscontinuedStart: 92-48-0967HLDXmhepdtyp (ZOMIG) 5 mg nasal spray Use 1 [place] in the nose as needed at onset of migraine headache. If symptoms persist or return, may repeat dose in other nostril after 2 hours. Maximum of 2 sprays per 24 hours 10 Each 2 06/24/2022 ActiveStart: 06-24-2022 take 1 spray(s) nasal route every twenty-four hours as neededZOLMitriptan (ZOMIG) 5 mg nasal spray Use 1 [place] in the nose as needed. SPRAY IN 1 NOSTRIL AT ONSET OF MIGRAINE HEADACHE. If symptoms persist or return, may repeat dose after 2 hours. Maximum: 5 mg/dose; 10 mg per 24 hours 10 Each 2 06/24/2022 ActiveComment on above:Use 1 [place] in the nose as needed. SPRAY IN 1 NOSTRIL AT ONSET OF MIGRAINE HEADACHE. If symptoms persist or return, may repeat dose after 2 hours. Maximum: 5 mg/dose; 10 mg per 24 hoursUse 1 [place] in the nose as needed at onset of migraine headache. If symptoms persist or return, mayrepeat dose in other nostril after 2 hours. Maximum of 2 sprays per 24 hours Completed/Discontinued Medications MedicationDrug Class(es)DatesSig (Normalized)Sig (Original)acetaminophen 500 mg oral tablet (20 sources)Start: 04-08-2024 End: 58-13-5973barb 1 tablet by mouth every six hours as needed for pain1,000 mg, oral, Every 6 hours PRN, mild pain - pain scale 1-3, Starting on Mon04/08/24 at 1825Start: 46-84-1008sqnd 2 tablets by mouth every six hours as needed for painacetaminophen (TYLENOL EXTRA STRENGTH) 500 mg tablet Take 2 tablets (1,000 mg total) by mouth every6 (six) hours as needed for pain. 30 tablet 2 03/28/2024 ActiveStart: 88-68-1082fexw 1 tablet by mouth every six hours as needed Acetaminophen Extra Strength 500 MG tablet Take 500 mg by mouth every 6 (six) hours if needed (pain) 03/28/2024 ActiveStart: 45-40-2286qcymqgndjgufj (TYLENOL) tablet 1,000 mgStart: 10-19-2021 End: 38-62-7090bfmkipqehfkrz (TYLENOL) tablet 650 mgacetaminophen 300 mg / codeine phosphate 30 mg oral tablet (3 sources)Opioid AgonistStart: 04-04-2024 End: 99-18-9428fxss 1 tablet by mouth every six hours as neededacetaminophen- codeine (TYLENOL #3) 300-30 mg per tablet Take 1 tablet by mouth every 6 (six) hours as needed. 04/04/2024 04/15/2024 Discontinued (Alternate therapy) ARIPiprazole 10 mg oral tablet (8 sources)Atypical Antipsychotic End: 87-73-7880aork 1 tablet by mouth in the morningARIPiprazole [...] mg oral tablet (2 sources)Muscle Relaxant End: 58-95-3695ocwd 1 tablet by mouth three times dailycyclobenzaprine [...] medication -verify indication for use.Start: 04-08-2024 End: 70-67-037618 mg, intravenous, Once, On Mon04/08/24 at 1450, For 1 dose, Look-alike/sound-alike medication - verify indication for use.Start: 01-22-2024 End: 65-07-067254 mg, INTRAVENOUS, NEEDED, 2 doses, Starting on Mon01/22/24 at 1328, Until Mon01/22/24 at 1429,Sedation/Dystonia/Akathisia/Anxiety 3rd line Start: 01-19-2024 End: 26-28-704300 mg, INTRAVENOUS, NEEDED, 2 doses, Starting on Mon01/19/24 at 0909, Until Mon01/19/24 at 1012, Sedation/Dystonia/Akathisia/Anxiety 3rd lineStart: 01-17-2024 End: 70-40-226639 mg, INTRAVENOUS, NEEDED, 2 doses, Starting on Mon01/17/24 at 0815, Until Mon01/17/24 at 0935, Sedation/Dystonia/Akathisia/Anxiety 3rd lineStart: 01-05-2024 End: 75-20-620468 mg, INTRAVENOUS, NEEDED, 1 dose, Starting on Mon01/05/24 at 1327, Until Mon01/05/24 at 1330, Administer per hypersensitivity/anaphylaxis grading in nursing communicationStart: 01-05-2024 End: 77-38-328705 mg, INTRAVENOUS, NEEDED, 2 doses, Starting on Mon01/05/24 at 1235, Until Mon01/05/24 at 1559, Sedation/Dystonia/Akathisia/Anxiety 3rd lineStart: 10-13-2023 End: 30-85-233457 mg, INTRAVENOUS, NEEDED, 1 dose, Starting on Mon10/13/23 at 1308, Until Mon10/13/23 at 1310, Administer per hypersensitivity/anaphylaxis grading in nursing communicationStart: 12-24-2020 End: 72-72-2612ixrbdrzhuvCPDUZ (BENADRYL) injection 50 mgdocusate sodium 50 mg / sennosides, assisted 8.6 mg oral tablet (11 sources)Start: 03-28-2024 End: 12-34-2917egkd 1 tablet by mouth at bedtimesennosides-docusate sodium (SENNA WITH DOCUSATE SODIUM) 8.6-50 mg Take 1 tablet by mouth in the morning and at bedtime. 30 tablet 1 03/28/2024 04/25/2024 Discontinued0.4 ml enoxaparin sodium 100 mg/ml prefilled syringe (1 source)Low Molecular Weight HeparinStart: 23-91-9016psqrto 40 mg by subcutaneous injection once daily40 [...] 100 mL (VYEPTI) (4 sources)Start: 08-01-2024 End: 19-92-3877549 mg, INTRAVENOUS, at 200 mL/hr, Administer over 30 Minutes, ONCE, 1 dose, On Mon08/01/24 at 1100, EXP: Administer with 0.2 micron filter.Start: 05-02-2024 End: 20-01-4858556 mg, INTRAVENOUS, at 200 mL/hr, Administer over [...] 140 mg/ml auto-injector (20 sources)Start: 07-10-2023 End: 01-90-9263nxmkrn 1 mL by subcutaneous injection every montherenumab-aooe (AIMOVIG AUTOINJECTOR) 140 mg/mL auto-injector Inject 1 mL subcutaneously once every month. Do not shake. 1 Each 07/10/2023 09/19/2023 DiscontinuedStart: 03-23-2023 End: 73-35-9317akedhy 1 mL by subcutaneous injection every montherenumab-aooe (AIMOVIG AUTOINJECTOR) 70 mg/mL auto-injector Inject 1 mL subcutaneously once every month. Do not shake. 1 Each 07/10/2023 07/10/2023 DiscontinuedComment on above:Inject 1 mL subcutaneously once every month. Do not shake.2 ml famotidine 10 mg/ml injection (1 source)Histamine-2 Receptor AntagonistStart: 08-01-2024 End: 80-14-219823 mg, INTRAVENOUS, NEEDED, 1 dose, Starting on Meg 08/01/24 at 1056, Until Meg 08/01/24 at 1146, Heartburn, REFRIGERATEfluconazole 150 mg oral tablet (6 sources)Azole AntifungalStart: 07-01-2024 End: 24-38-3848uhnp 1 tablet by mouth once, then take 1 tablet by mouth once fluconazole (Diflucan) 150 MG tablet Indications: Yeast infection Take 1 tablet (150 mg) by mouth 1(one) time for 1 dose This is a 1 time dose, take single tablet by mouth. 1 tablet 1 07/01/2024 07/01/2024 ExpiredStart: 05-21-2024 End: 41-77-7439lwqt 1 tablet by mouth oncefluconazole (DIFLUCAN) 150 mg tablet Indications: Antibiotic-induced yeast infection Take 1 tablet (150 mg total) by mouth once for 1 dose. 1 tablet 05/21/2024 05/21/2024 ActiveStart: 04-02-2024 End: 51-73-3858bacu 1 tablet by mouth once, then take 1 tablet by mouth once fluconazole (Diflucan) 150 MG tablet Indications: Yeast infection Take 1 tablet (150 mg) by mouth 1(one) time for 1 dose This is a 1 time dose, take single tablet by mouth. 1 tablet 1 04/02/2024 04/02/2024 ExpiredStart: 01-24-2024 End: 99-36-3369tygg 1 tablet by mouth oncefluconazole (Diflucan) 150 MG tablet Indications: Rash , Yeast dermatitis Take 1 tablet (150 mg) bymouth every 3rd (third) day for 2 doses 2 tablet 01/24/2024 01/28/2024 ActiveFLUoxetine 20 mg oral capsule (2 sources)Serotonin Reuptake Inhibitor End: 31-41-8914vaxd 3 capsules by mouth once dailyFLUoxetine (PROZAC) 20 MG capsule Take 60 mg by mouth daily 0 10/20/2021 Discontinued (Stop Taking at Discharge)30 actuat fluticasone furoate 0.1 mg/actuat / umeclidinium 0.0625 mg/actuat / vilanterol 0.025 mg/actuat dry powder inhaler (5 sources)Anticholinergic, Corticosteroid, beta2-Adrenergic Agonist End: 95-11-3744opmwjrsycbk-umeclidin-vilanter (TRELEGY ELLIPTA) 100-62.5-25 mcg blister with device daily. 03/20/2024 Discontinued1.5 ml fremanezumab-vfrm 150 mg/ml auto-injector (12 sources)Start: 11-25-2020 End: 38-44-4669dhtaoupdulio-vfrm 225 mg/1.5 mL auto-injector Indications: Chronic mixed headache syndrome Inject 225 mg under the skin every 28 days. 1.5 mL 4 11/25/2020 03/25/2024 Discontinued (Therapy completed)Comment on above: Ajovy 225 mg/1.5 mL subcutaneous auto-injectorgabapentin 600 mg oral tablet (6 sources)Anti-epileptic AgentStart: 82-82-0882wchmkouhll (NEURONTIN) 600 mg tablet End: 17-76-4642dprxcpehds (NEURONTIN) 600 MG tablet Take 300 mg by mouth 3 times daily. 0 10/20/2021 Discontinued (Stop Taking at Discharge)take 1 tablet by mouth once dailygabapentin (NEURONTIN) 600 MG tablet Take 600 mg by mouth nightly. 0 Activegadoteridol (PROHANCE) injection 20 mL (1 source)Start: 10-19-2021 End: 83-56-5002aabusahidqo (PROHANCE) injection 20 mL1 ml galcanezumab-gnlm 120 mg/ml auto-injector (20 sources)Start: 09-27-2022 End: 05-18-0301wdaokp 1 mL by subcutaneous injection every monthgalcanezumab- gnlm (EMGALITY PEN) 120 mg/mL pen Inject 1 mL subcutaneously once every month. Do not shake. 1 Each 11 09/27/2022 11/10/2022 Discontinued (Course of therapy completed)Start: 09-27-2022 End: 81-92-0557nfybwn 2 doses by subcutaneous injection every monthgalcanezumab- gnlm 120 mg/mL subcutaneous pen injector (EMGALITY) Inject 2 Pens subcutaneously one time only for 1 dose. For first month only. Refrigerate. Do not shake. 2 Each 0 09/27/2022 3Discontinued (Course of therapy completed)Start: 99-02-3773xxcdwo 1 mL by subcutaneous injection every monthgalcanezumab-gnlm (EMGALITY PEN) 120 mg/mL pen Inject 1 mL subcutaneously once every month. Do not shake. 1 Each 2 06/24/2022 ActiveStart: 45-24-5730jaemuh 2 doses by subcutaneous injection every monthgalcanezumab-gnlm [...] prefilled syringe (4 sources)Opioid AgonistStart: 04-08-2024 End: 25-41-3502hjvt 1 mg intravenously every four hours as needed for pain1 mg, intravenous, Every 4 hours PRN, severe pain - pain scale 7-10, Starting on Mon04/08/24 at 1941, If IV push, administer over over 2 to 3 minutes. Look-alike/sound-alike medication - verify indication for use.Start: 04-08-2024 End: 23-54-1858kckc 0.5 mg intravenously once0.5 mg, intravenous, Once, [...] iodine/mL 100 mL (1 source)Start: 04-08-2024 End: 92-86-2551229 mL, intravenous, Once in imaging, contrast, Starting on Mon04/08/24 at 1521, For 1 dose, VESICANT (RED)iohexoL (OMNIPAQUE) 300 mg iodine/mL 30 mL (1 source)Start: 04-08-2024 End: 70-39-2050ckex 30 mL by mouth once30 mL, oral, [...] of therapy for ketorolac (Toradol).Start: 08-01-2024 End: 56-40-961072 mg, INTRAVENOUS, ONCE, 1 dose, On Meg 08/01/24 at 1130, Ketorolac (Toradol) is indicated for the short-term (up to 5 days) management of moderately severe acute pain. Continuation of ketorolac (Toradol) beyond 5 days increases the risk of developing serious adverse events. Please verify the duration of therapy for ketorolac (Toradol)Start: 21-54-9859myyi 1 tablet by mouth every eight hours as needed for painketorolac (Toradol) 10 MG tablet Take 10 mg by mouth every 8 (eight) hours if needed for mild pain 06/22/2024 Active Start: 1995vjyu 1 tablet by mouth every six hours as neededkeTORolac (TORADOL) 10 mg tablet Take 1 tablet by mouth every 6 hours as needed (severe migraine). 20 tablet 5 06/04/2024 ActiveStart: 05-02-2024 End: 09-36-471805 mg, INTRAVENOUS, ONCE, 1 dose, On Mon05/02/24 at 1200, Ketorolac (Toradol) is indicated for the short-term (up to 5 days) management of moderately severe acute pain. Continuation of ketorolac (Toradol) beyond 5 days increases the risk of developing serious adverse events. Please verify the duration of therapy for ketorolac (Toradol).Start: 05-02-2024 End: 15-03-5125abPFTteto 30 mg injection (Toradol)Start: 04-09-2024 End: 09-06-552125 mg, intramuscular, Once, On Mon04/09/24 at 1100, For 1 dose, Look-alike/sound-alike medication -verify indication for use. Duration of therapy is not to exceed 5 days. Maximum recommended dose + 120mg/24 hours. Start: 01-22-2024 End: 00-22-175684 mg, INTRAVENOUS, ONCE, 1 dose, On 01/22/24 at 1330, Ketorolac (Toradol) is indicated for the short-term (up to 5 days) management of moderately severe acute pain. Continuation of ketorolac (Toradol) beyond 5 days increases the risk of developing serious adverse events. Please verify the duration of therapy for ketorolac (Toradol).Start: 01-19-2024 End: 15-16-782539 mg, INTRAVENOUS, ONCE, 1 dose, On Mon01/19/24 at 0930, Ketorolac (Toradol) is indicated for theshort-term (up to 5 days) management of moderately severe acute pain. Continuation of ketorolac (Toradol) beyond 5 days increases the risk of developing serious adverse events. Please verify the durat ion of therapy for ketorolac (Toradol).Start: 01-17-2024 End: 53-83-532042 mg, INTRAVENOUS, ONCE, 1 dose, On Mon01/17/24 at 0830, Ketorolac (Toradol) is indicated for theshort-term (up to 5 days) management of moderately severe acute pain. Continuation of ketorolac (Toradol) beyond 5 days increases the risk of developing serious adverse events. Please verify the durat ion of therapy for ketorolac (Toradol).Start: 01-05-2024 End: 43-26-794602 mg, INTRAVENOUS, ONCE, 1 dose, On Mon01/05/24 at 1330, Ketorolac (Toradol) is indicated for theshort-term (up to 5 days) management of moderately severe acute pain. Continuation of ketorolac (Toradol) beyond 5 days increases the risk of developing serious adverse events. Please verify the durat ion of therapy for ketorolac (Toradol)Start: 01-05-2024 End: 44-98-8840bvWWRmvoj 30 mg injection (Toradol)Start: 10-13-2023 End: 23-60-380825 mg, INTRAVENOUS, ONCE, 1 dose, On Mon10/13/23 [...] the opioid, if preferred: YesStart: 10-13-2023 End: 81-31-1332lbSOOogsk 30 mg injection (Toradol)Start: 05-14-2023 End: 28-66-6688morx 1 tablet by mouth every eight hours as neededketorolac (Toradol) 10 MG tablet Take 1 tablet by mouth every 8 (eight) hours if needed 05/14/2023 02/28/2024 DiscontinuedStart: 05-08-2022 End: 23-83-6704szwh 1 tablet by mouth every six hours as neededkeTORolac (TORADOL) 10 mg tablet Take 1 tablet by mouth every 6 hours as needed (severe migraine). 20 tablet 5 11/10/2023 05/31/2024 DiscontinuedStart: 12-24-2020 End: 52-48-4617gmhiwutwo (TORADOL) injection 15 mgComment on above:Take 1 tablet by mouth every 6 hours as needed (severe migraine).Take 10 mg by mouth. lamoTRIgine 200 mg oral tablet (20 sources)Mood Stabilizer, Anti-epileptic AgentStart: 01-29-2024 End: 99-73-5041rvjm 1 tablet by mouth in the morning, then take 1 tablet by mouth at bedtimelamoTRIgine (LaMICtal) 200 mg tablet Take 1 tablet (200 mg total) by mouth in the morning and 1 tablet (200 mg total) before bedtime. 01/29/2024 10/24/2024 Discontinued (Therapy completed)Start: 05-18-2023 End: 28-26-0871iudf 1 tablet by mouth at bedtimelamoTRIgine (LaMICtal) 200 MG tablet Take 1 tablet by mouth at bedtime 05/18/2023 01/09/2024 Discontinued Start: 02-23-2022 End: 99-12-3272vslzVWVhuzq (LaMICtal) 150 mg tablet 100mg in am 150mg at HS 02/23/2022 03/25/2024 Discontinued (Dose adjustment)Start: 11-23-2021 End: 26-44-7043qwstLXBcmhg (LAMICTAL) 150 mg tablet 11/23/2021 ActiveStart: 39-88-9140dcxh 2 tablets by mouth once dailylamoTRIgine (LAMICTAL) 25 MG tablet Take 2 tablets by mouth daily 30 tablet 3 10/21/2021 ActiveStart: 10-19-2021 lamoTRIgine (LAMICTAL) tablet 50 mg End: 59-59-5924ifbtIBGeyhq (LaMICtal) 50 MG tablet,disintegrating disintegrating tablet Dissolve 2 tablets (100 mgtotal) on tongue in the morning. 03/25/2024 Discontinued (Dose adjustment)levETIRAcetam 250 mg oral tablet (3 sources)Start: 77-86-1498aafKTOAKaovlz (KEPPRA) 250 mg tablet Take 1 at bedtime. Can increase to bid after 2 weeks if tablet 2 08/08/2022 ActiveComment on above:Take 1 at bedtime. Can increase to bid after 2 weeks if neededlithium carbonate 300 mg oral tablet (20 sources)Start: 04-08-2024 End: 68-14-2367636 mg, oral, Nightly, First dose on Mon04/08/24 at 2200, Food- Drug Interaction Education Required Look-alike/sound-alike medication - verify indication for use Maintain normal daily intakes of fluids and salt (sodium) Enteral Feeding: Mix solution with 10-30 mL water prior to administering in f eeding tubeStart: 06-13-2022 End: 13-00-5673ytefash carbonate 300 mg tablet 06/13/2022 ActiveStart: 44-08-2912bsrb 2 tablets by mouth once dailylithium carbonate 300 mg tablet Take 2 tablets (600 mg total) by mouth nightly. 01/17/2022 ActiveStart: 01-17-2022 End: 10-46-5223suzjudl carbonate 300 mg tablet 2 tablets (600 mg total). 01/17/2022 Active End: 10-92-3852htuxfey ER (Eskalith) 450 MG 12 hr tablet [place] 01/09/2024 Discontinued1 ml LORazepam 2 mg/ml injection (3 sources)BenzodiazepineStart: 04-08-2024 End: 19-00-9375crho 1 mg intravenously once1 mg, intravenous, Once, On Mon04/08/24 at 2015, For 1 dose, Look-alike/sound-alike medication - verify indication for use;IV use requires increased monitoring of HR,BP,Respirations and Pulse Oximetry;For IV-dilute with equal volume PF sod chloride, Indication: Sedation End: 65-99-6308stdb 1 tablet by mouth twice dailyLORazepam (ATIVAN) 2 MG tablet Take 2 mg by mouth 2 times daily. 0 10/20/2021 Discontinued (Stop Taking at Discharge)lumateperone (CAPLYTA) 10.5 mg capsule (20 sources) End: 40-44-3134oiih 1 capsule by mouth once dailylumateperone (CAPLYTA) [...] mg oral tablet (8 sources)AntiemeticStart: 06-22-2022 End: 68-81-1112ipan 1 tablet by mouth three times daily [...] 80 mg/ml injection (4 sources)CorticosteroidStart: 02-09-2024 End: 13-22-3367icxihxYGFFMOAzfhye acetate (DEPO-Medrol) injection 80 mgStart: 02-09-2024 End: 60-67-0395whzebxRHMJBEVcfrti acetate (DEPO-Medrol) injection 80 mgStart: 02-09-2024 End: 17-61-339127 mg, Injection, Once, On Mon02/09/24 at 1130, For 1 doseStart: 02-09-2024 End: 28-26-460111 mg, Injection, Once, On Mon02/09/24 at 1130, For 1 dose2 ml midazolam 1 mg/ml injection (1 source)BenzodiazepineStart: 10-19-2021 End: 20-02-0950hpgsyktgm PF (VERSED) injection 1 mgmontelukast 10 mg oral tablet (19 sources)Leukotriene Receptor AntagonistStart: 06-07-2022 End: 03-37-9325mxqt 1 tablet by mouth in the morningmontelukast [...] spray,non-aerosol nasal spray (6 sources)Start: 04-10-2024 End: 65-94-0820bzikappt (NARCAN) 4 mg/actuation spray,non-aerosol nasal spray Administer 1 spray (4 mg total) intoalternating nostrils as needed for opioid reversal. 1 each 04/10/2024 04/25/2024 DiscontinuedStart: 46-12-2899tvqkwtep (NARCAN) 4 mg/actuation spray,non-aerosol nasal spray Administer 1 spray (4 mg total) intoalternating nostrils as needed for opioid reversal. 1 each 04/10/2024 ActiveStart: 71-27-3488kncdwqxq (NARCAN) 4 mg/actuation spray,non-aerosol nasal spray Administer 1 spray (4 mg total) intoalternating nostrils as needed for opioid reversal. 1 each 04/10/2024naratriptan 2.5 mg oral tablet (4 sources)Serotonin-1b and Serotonin-1d Receptor AgonistStart: 77-24-6265zkdt 1 tablet by mouth every four hours [...] topical powder (15 sources)Polyene AntifungalStart: 01-24-2024 End: 62-50-4489jcsovmwb (MYCOSTATIN) powder APPLY TO THE AFFECTED AREA(S) topically TWICE DAILY 01/24/2024 04/08/2024 Discontinued (Therapy completed) Start: 01-24-2024 End: 69-72-0640idgwghpg (Mycostatin) 055576 UNIT/GM powder Indications: Rash , Yeast dermatitis Apply topically 2 (two) times a day 60 g 01/24/2024 02/28/2024 Discontinued2 ml ondansetron 2 mg/ml injection (20 sources)Serotonin-3 Receptor AntagonistStart: 08-01-2024 End: mg, INTRAVENOUS, EVERY 1 HOUR NEEDED, 2 doses, Starting on Mon08/02/24 at 1017, Until Mon08/02/24 at 1453, Nausea/Vomiting - First Line - ParenteralStart: 05-04-2024 End: 61-78-9498jxxf 1 tablet by mouth every six hours [...] dose, Administer over 2-5 minutes.Start: 02-10-2024 End: 51-74-7599upme 1 tablet by mouth every eight hours [...] - First Line - ParenteralStart: 12-24-2020 End: 75-25-5567tefiikaayvr (ZOFRAN) injection 4 mgphentermine hydrochloride 37.5 mg oral capsule (20 sources)Sympathomimetic Amine AnorecticStart: 06-06-2024 End: 07-64-0211hemd 1 capsule by mouth once daily in the morningphentermine 37.5 MG capsule Indications: Weight loss Take 1 capsule (37.5 mg total) by mouth every morning. 30 capsule 06/06/2024 10/24/2024 Discontinued (Therapy completed) Start: 03-21-2023 End: 75-43-3061kaqp 1 tablet by mouth once daily before [...] dissolve drug prior to administrationpolyethylene glycol 3350 54581 mg powder for oral solution (1 source)Osmotic LaxativeStart: g, Oral, DAILY PRN, Starting on Mon10/19/21 at 1226, Until Discontinued, Constipation First linetherapy for constipationprochlorperazine 5 mg/ml injectable solution (3 sources)PhenothiazineStart: 01-22-2024 End: 46-36-235593 mg, INTRAVENOUS, NEEDED, 1 dose, Starting on Mon01/22/24 at 1328, Until Mon01/22/24 at 1407, for headache; previously tolerated if given with Benadryl, Protect From LightStart: 01-19-2024 End: 34-27-394460 mg, INTRAVENOUS, NEEDED, 1 dose, Starting on Mon01/19/24 at 0909, Until Mon01/19/24 at 0951, for headache; previously tolerated if given with Benadryl, Protect From LightStart: 01-17-2024 End: 29-07-924151 mg, INTRAVENOUS, NEEDED, 1 dose, Starting on Mon01/17/24 at 0815, Until Mon01/17/24 at 0923, for headache; previously tolerated if given with Benadryl, Protect From Lightrimegepant 75 mg disintegrating oral tablet (8 sources)Start: 10-29-2020 End: 80-20-1257ajkbheeixk 75 mg tablet,disintegrating Indications: Chronic mixed headache syndrome Dissolve 1 tablet on tongue daily as needed (migraines). 8 tablet 1 10/29/2020 03/25/2024 Discontinued (Therapy completed)20 ml ropivacaine hydrochloride 5 mg/ml injection (2 sources)Amide Local AnestheticStart: 08-18-2023 End: 64-87-9487DXKzkwxxoax (PF) 5 mg/mL (0.5 %) 100 mg [...] hypersensitivity/anaphylaxis grading in nursing communication.Start: 04-08-2024 End: 14-22-843943 mL, intravenous, As needed, line care, Starting on Mon04/08/24 at 1521Start: 04-08-2024 End: 71-00-368614 mL, intravenous, Once in imaging, pre/post contrast, Starting on Mon04/08/24 at 1521, For 1 doseStart: 04-08-2024 End: ,000 mL, intravenous, at 3,871 mL/hr, Administer over 31 Minutes, Once, On Mon04/08/24 at 1335, For 1 doseStart: 01-19-2024 End: 96-53-1582881 mL, INTRAVENOUS, at 999 mL/hr, Administer over 0.5 Hours, ONCE, 1 dose, On Mon01/19/24 at 0930Start: 01-17-2024 End: 59-07-8593780 mL, INTRAVENOUS, at 999 mL/hr, Administer over 0.5 Hours, ONCE, 1 dose, On Mon01/17/24 at 0830Start: 93-41-9529kkcm 1 dose intravenously twice daily5-40 mL, IntraVENous, [...] Midline or Central Line = 20 mL/lumenStart: 17-70-6264ebfrzi chloride flush 0.9 % injection 10 mLStart: 10-19-2021 End: 69-89-1643XiolvQYXjyq, at 125 mL/hr, CONTINUOUS, Starting on Mon10/19/21 at 1245Start: 99-87-7025FnntgINEkrl, at 5-250 mL/hr, PRN, if patient receiving [...] or less into rate field of order.Start: 04-70-2919girt 5-40 mL intravenously once as needed5-40 mL, [...] Reductase Inhibitor Antibacterial, Sulfonamide AntimicrobialStart: 04-07-2024 End: 44-70-4303cyiq 1 tablet by mouth once in the morningsulfamethoxazole- trimethoprim (BACTRIM DS) 800-160 mg per tablet Take 1 tablet by mouth in the morning and 1 tablet before bedtime. 04/07/2024 04/10/2024 Discontinued (Stop Taking at Discharge)Start: 11-15-2023 End: 85-63-0404sqoj 1 tablet by mouth once in the morning, then take 1 tablet by mouth once at bedtimesulfamethoxazole-trimethoprim (Bactrim DS) 800-160 MG per tablet Indications: Acute bronchitis due to other specified organisms Take 1 tablet by mouth in the morning and 1 tablet before bedtime. Do all this for 14 days. 28 tablet 11/15/2023 11/29/2023 ActiveStart: 10-10-2023 End: 05-89-2397dmza 1 tablet by mouth once in the [...] (3 sources)Serotonin-1b and Serotonin-1d Receptor Agonist End: 27-76-1042XMGCoytpzsn (IMITREX) 100 mg tablet Take 100 mg by mouth. 0 12/03/2021 Discontinued (Lack of Efficacy)Comment on above:Take 100 mg by mouth. traZODone hydrochloride 100 mg oral tablet (20 sources)Serotonin Reuptake InhibitorStart: 04-09-2024 End: 75-19-2868cbfc 300 mg by mouth once quvbg115 mg, oral, Nightly, First dose on Mon04/09/24 at 0100, Look-alike/sound-alike medication - verify indication for use.Start: 25-89-4116shna 1 tablet by mouth once dailytraZODone (DESYREL) 300 MG tablet Take 1 tablet (300 mg total) by mouth nightly. 03/14/2024 Active Start: 05-10-2023 End: 43-64-5267aqmf 1 tablet by mouth at bedtimetraZODone (Desyrel) 300 MG tablet Take 300 mg by mouth at bedtime 05/10/2023 02/28/2024 DiscontinuedStart: 06-13-2022 End: 86-27-8417llwUVJaov (DESYREL) 100 mg tablet 06/13/2022 05/03/2024 Discontinued End: 30-00-1254bnwp 2 tablets by mouth once dailytraZODone (DESYREL) 100 mg tablet Take 2 tablets (200 mg total) by mouth nightly. 03/25/2024 Discontinued (Therapy completed) End: 16-83-0469wlhWILgzh (Desyrel) 50 MG tablet Take by mouth at bedtime. 01/09/2024 Discontinuedvancomycin (VANCOCIN) IVPB 1250 mg/250 mL in 0.9% sodium chloride (premix) (1 source)Start: 04-09-2024 End: 43-90-6564ymkm 1250 mg intravenously every eight hours1,250 mg, [...] (YELLOW), Indication: Uncomplicated skin and soft tissue xvleehvgg89 hr venlafaxine 75 mg extended release oral [...] mg oral tablet (20 sources)Start: 04-20-2022 End: 42-83-5312ioddayydqk (VIIBRYD) 20 mg tablet 2 tablets (40 mg total). 04/20/2022 03/25/2024 Discontinued (Therapy completed)Start: 04-20-2022 End: 24-22-2897zqfxplqerx (VIIBRYD) 20 mg tabletvitamin b12 1 mg oral tablet (8 sources)Vitamin B12 End: 68-06-4573nxco 1 tablet by mouth in the morningcyanocobalamin 1000 MCG tablet Take 1 tablet (1,000 mcg total) by mouth in the morning. 03/25/2024 D iscontinued (Therapy completed) Problems Active Problems Problem ClassificationProblemDateDocumented DateEpisodic/ChronicAllergic reactions (3 sources)Environmental allergy; Translations: [Other allergy status, other than to drugs and biological substances]Onset: 151168-05-7034Yvidzwob Anxiety disorders (20 sources)Anxiety disorder, unspecified; Translations: [Generalized anxiety disorder]Onset: 683440-16-5863LfmpaiyFcuxxo (20 sources)Unspecified asthma, uncomplicated; Translations: [Mild persistent asthma]Onset: 12-29-2021 Resolved: 692670-45-2886DhwuddfPnopofqycfkbv of surgical procedures or medical care (2 sources)Menopausal flushing; Translations: [Symptomatic postprocedural ovarian failure]31-48-5051GzzfjngF Codes: Fall (1 source)Unspecified fall, initial encounter; Translations: [UNSPECIFIED FALL INITIAL ENCOUNTER]Onset: 59-94-5158YgncoretHazonrkuxccpp (1 source)Endometriosis, unspecified; Translations: [ENDOMETRIOSIS UNSPECIFIED] Onset: 39-46-1366JdziuklJjporufmqr disorders (6 sources)Gastro-esophageal reflux disease without esophagitis; Translations: [Gastroesophageal reflux disease]Onset: 934463-26-4445YxvbxtjFnfyenkbvkvqa symptoms and ill-defined conditions (1 source)Stress incontinence (female) (male); Translations: [STRESS INCONTINENCE FEMALE MALE]Onset: 99-26-6547HyxkagjHgyykpwvueued symptoms and ill- defined conditions (1 source)Painful micturition, unspecified; Translations: [PAINFUL MICTURITION UNSPECIFIED]Onset: 07-01-8626RhmibomeBnaehqvi; including migraine (20 sources)Migraine; Translations: [Migraine, unspecified, not intractable, without status migrainosus]Onset: 71-21-5019DmfvareEyjsdxho; including migraine (1 source)Headache; Translations: [Chronic intractable headache, unspecified headache type]EpisodicHeadache; including migraine (4 sources)Headache; including migraine; Translations: [HEADACHE UNSPECIFIED] Onset: 67-06-7032Idwnn valve disorders (1 source)Nonrheumatic mitral (valve) prolapse; Translations: [NONRHEUMATIC MITRAL VALVE PROLAPSE]Onset: 22-59-5466OoknldvUxyxcejlizst; infection of eye (except that caused by tuberculosis or sexually transmitteddisease) (12 sources)Infection of bilateral eyes; 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, bilateral]Onset: 623701-90-6601CdzzlzjHcgsbhumausy diseases of female pelvic organs (4 sources)Female pelvic peritoneal adhesions; Translations: [Female pelvic peritoneal adhesions (postinfective)]35-07-4703XktwzxxlPsvmgmzouq disorders (3 sources)Menopausal symptom; Translations: [Menopausal and female climacteric states]33-22-2622BecdgouHqempoekz disorders (1 source)Dysmenorrhea, unspecified; Translations: [DYSMENORRHEA UNSPECIFIED] Onset: 68-11-2082NpinlkvPorlvomeqzqvu mental health disorders (20 sources)Dissociative convulsions; Translations: [Conversion disorder with seizures or convulsions]Onset: 38-33-3647PvtfoxpJfpb disorders (20 sources)Bipolar disorder, unspecified; Translations: [Major depressive disorder, single episode, unspecified]Onset: 317798-05-9960DwolfflThygfrl (5 sources)Mycosis; Translations: [Candidiasis, unspecified]16-23-5888Jljpdfzf Other aftercare (1 source)Other assisted (current) drug therapy; Translations: [OTH [facility] CURRENT DRUG THERAPY]Onset: 26-57-5314IkbgylrqZowrg aftercare (2 sources)Wound finding; Translations: [Encounter for other specified aftercare]06-26-0032UdkrdiyiOgdng connective tissue disease (2 sources)Spasm; Translations: [Other muscle spasm]48-52-8191YmtcfuotCzkry endocrine disorders (1 source)Polycystic ovarian syndrome; Translations: [POLYCYSTIC OVARIAN SYNDROME]Onset: 72-21-4640IxzbyjmNnxbq endocrine disorders (20 sources)Polycystic ovary; Translations: [Polycystic ovarian syndrome]Onset: 112770-53-2396KhnaldnPpkxz eye disorders (1 source)Bilateral epiphora of eyes; Translations: [Unspecified epiphora, bilateral]88-46-6249YwekjkpsSmtds female genital disorders (1 source)Unspecified dyspareunia; Translations: [UNSPECIFIED DYSPAREUNIA]Onset: 79-30-8786VzefmfbTubiu female genital disorders (1 source)Abnormal uterine and vaginal bleeding, unspecified; Translations: [ABNORMAL UTERINE VAGINAL BLEED UNS]Onset: 38-89-9076TlvgcdhAijuf female genital disorders (2 sources)Pain in female genitalia on intercourse; Translations: [Unspecified dyspareunia]91-18-9100AosgjkrBnhtz gastrointestinal disorders (1 source)Other constipation; Translations: [OTHER CONSTIPATION]Onset: 73-92-2091QiimfmepHhpsl injuries and conditions due to external causes (4 sources)Unspecified injury of head, initial encounter; Translations: [UNSPECIFIED INJURY HEAD INITIAL ENC]Onset: 11-60-3288FsjoczrcEuojp injuries and conditions due to external causes (1 source)Allergic reaction; Translations: [Allergy, unspecified, sequela] 93-30-2219ArakspqnDyyjn liver diseases (1 source)Fatty (change of) liver, not elsewhere classified; Translations: [FATTY CHANGE LIVER NEC]Onset: 25-67-9989GnqhgaiPwkyw lower respiratory disease (1 source)Nodule of lung; Translations: [Solitary pulmonary nodule]03-20-2024 EpisodicOther nervous system disorders (1 source)Tremor; Translations: [Tremor, unspecified]EpisodicOther nervous system disorders (3 sources)Postoperative pain ; Translations: [Other acute postprocedural pain] 18-36-0990VnilntkpEchci nutritional; endocrine; and metabolic disorders (1 source)Morbid (severe) obesity due to excess calories; Translations: [MORBID SEVERE OBES D/T EXCESS DAJUAN]Onset: 05-75-8959SiklzmwFulvv nutritional; endocrine; and metabolic disorders (1 source)Body mass index (BMI) 45.0-49.9, adult; Translations: [BODY MASS INDEX BMI 45.0-49.9 ADULT]Onset: 12-63-4867KukneuvNnsmo nutritional; endocrine; and metabolic disorders (8 sources)Morbid obesity; Translations: [Morbid (severe) obesity due to excess calories]Onset: 132128-45-9424WklaguyUbssg nutritional; endocrine; and metabolic disorders (20 sources)Severe obesity; Translations: [Class 3 severe obesity due to excess calories without serious comorbidity with body mass index (BMI) of 50.0 to 59.9 in adult]Onset: 350776-17-8287VlhveeoCrcsu nutritional; endocrine; and metabolic disorders (2 sources)Weight decreased; Translations: [Abnormal weight loss]06-06-2024 EpisodicOther skin disorders (2 sources)Excessive sweating; Translations: [Generalized hyperhidrosis] 74-35-7602OutjagwyFkhzo upper respiratory disease (3 sources)Seasonal allergic rhinitis; Translations: [Other seasonal allergic rhinitis]12-59-8360YwoqdtbIfsjz upper respiratory infections (1 source)Acute pansinusitis; Translations: [Acute pansinusitis, unspecified] 64-80-1334HrdrfjnqCicato media and related conditions (1 source)Otitis media of left ear; Translations: [Otitis media, unspecified, left ear]60-26-2044UhwfmuquAqnnthk cyst (11 sources)Complex ovarian cyst; Translations: [Other ovarian cyst, unspecified side]89-08-0385FmxcaqwwKuxlileh codes; unclassified (4 sources)Obstructive sleep apnea syndrome; Translations: [Obstructive sleep apnea (adult) (pediatric)]68-75-1296TtvcopxKhsaazom codes; unclassified (1 source)Acquired absence of other specified parts of digestive tract; Translations: [ACQ ABSENCE OTH PART DIGESTV TRACT]Onset: 01-33-1195Kdcnhdka Residual codes; unclassified (1 source)Preoperative xuhhx34-26-9374BwisltppFbzztrqe codes; unclassified (2 sources)Family history of hereditary disease; Translations: [Family history of other specified conditions]66-22-6995CvplalfuZthmeqvv codes; unclassified (2 sources)Reduced libido; Translations: [Decreased libido]34-99-2538Gelekpdz Residual codes; unclassified (1 source)Family history of other specified conditions; Translations: [Family history of other specified conditions]Onset: 08-97-1727DsgfrgavYcbvjgkmohmu (3 sources)LOW BACK PAIN, UNSPECIFIED; Translations: [LOW BACK PAIN, UNSPECIFIED]Onset: 81-17-4056Tgmsxntvnohh (1 source)CONTACT W/AND (SUSP) EXPOS COVID-19; Translations: [CONTACT W/AND (SUSP) EXPOS COVID-19]Onset: 95-74-6717Wqygx infection (1 source)Disease caused by 2019-nCoV; Translations: [COVID-19]01-24-2024 Episodic Past or Other Problems Problem ClassificationProblemDateDocumented DateEpisodic/ChronicAbdominal pain (20 sources)Unspecified abdominal pain; Translations: [Pelvic and perineal pain] Onset: 08-17-2021 Resolved: 80-85-7556OibwmonuGoubj bronchitis (20 sources)Acute infective bronchitis; Translations: [Acute bronchitis due to other specified organisms]Onset: 10-10-2023 Resolved: 924751-11-1304GigtdgdmAjyd; stupor; and brain damage (20 sources)Somnolence; Translations: [Loss of consciousness]Onset: 08-06-2021 Resolved: 009807-36-0212XfbkykxxWdkcejtjglhsm of surgical procedures or medical care (20 sources)Postoperative complication; Translations: [Other postprocedural complications and disorders of genitourinary system]Onset: EpisodicContraceptive and procreative management (1 source)Tubal ligation status; Translations: [TUBAL LIGATION STATUS]Onset: 81-62-3848RqjkhyfuQheidwwky of teeth and jaw (20 sources)Toothache; Translations: [Other specified disorders of teeth and supporting structures]Onset: 152775-90-0373UojhqiopBfnupkrg; convulsions (20 sources)Seizure disorder; Translations: [Epilepsy, unspecified, not intractable, without status epilepticus]Onset: 02-18-2020 Resolved: 04-46-3618XhphasbNhahfjuy; convulsions (20 sources)Neurological finding; Translations: [Unspecified convulsions]Onset: 10-19-2021 Resolved: 06-91-7127NrcylnwmWzjbtim and fatigue (20 sources)Fatigue; Translations: [Other fatigue]Onset: EpisodicMood disorders (20 sources)Mood disorders; Translations: [DEPRESSION UNSPECIFIED]Onset: 03-03-2022 Resolved: Nausea and vomiting (20 sources)Nausea; Translations: [Nausea with vomiting, unspecified]Onset: 87-40-1131XerpwtzgImpcw aftercare (20 sources)Long-term current use of drug therapy; 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]Onset: 299887-25-8009SbklkpktAhkzi female genital disorders (1 source)Pain in female pelvis; Translations: [Pelvic pain in female]Onset: 195506-09-3972GmwxqsazGwrmt gastrointestinal disorders (1 source)Diarrhea, unspecified; Translations: [DIARRHEA UNSPECIFIED]Onset: 19-03-1804UztefdwaSfrdj liver diseases (1 source)Hepatomegaly, not elsewhere classified; Translations: [HEPATOMEGALY NEC]Onset: 30-58-0414ManuhiiwKjfbh lower respiratory disease (20 sources)Dyspnea on exertion; Translations: [Shortness of breath]Onset: 627541-00-7138AphiyqagMebjc lower respiratory disease (20 sources)Cough; Translations: [Acute cough]Onset: 01-27-2022 Resolved: 806152-90-8270ZamfyuwhDiauv nervous system disorders (5 sources)Other acute postprocedural pain; Translations: [OTHER ACUTE POSTPROCEDURAL PAIN]Onset: 84-30-6537TfcwtwauHpegs screening for suspected conditions (not mental disorders or infectious disease) (20 sources)Suspected disorder; Translations: [Encounter for suspected anomaly ruled out]Onset: 786959-26-2585XhtshdxlYetnf skin disorders (13 sources)Ingrowing great toenail; Translations: [Ingrowing nail]Onset: 461189-57-5824VlkxpmiaVyeeskfz codes; unclassified (1 source)Acquired absence of both cervix and uterus; Translations: [ACQUIRED ABSENCE BOTH CERVIX AND UTERUS]Onset: 41-61-1784BscphfwuTzjlkyyd codes; unclassified (1 source)Other specified postprocedural states; Translations: [OTH SPECIFIED POSTPROCEDURAL STATES]Onset: 22-10-7506GoicpxdbAselyvtd codes; unclassified (20 sources)Persistent insomnia; Translations: [Insomnia, unspecified]Onset: 519528-05-9303SavhwtrlPfontfhq codes; unclassified (20 sources)Edema, generalized; Translations: [Generalized edema]Onset: 693192-26-6689MmefybtuXzhzjgdl codes; unclassified (20 sources)History of bilateral salpingo-oophorectomy; 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, bilateral]Onset: 948111-49-1749LrvzofjeSsjh and subcutaneous tissue infections (20 sources)Cellulitis of abdominal wall ; Translations: [Cellulitis of abdominal wall]Onset: 918845-48-9637GiycwsqtFayhulwxizi; intervertebral disc disorders; other back problems (20 sources)Cervicalgia; Translations: [Neck pain]Onset: 226727-13-7342 EpisodicUnclassified (1 source)LOW BACK PAIN, UNSPECIFIED; Translations: [LOW BACK PAIN, UNSPECIFIED] Onset: 31-12-5521Qbhvpfehdcxn (1 source)Patient encounter auqgkz82-47-1207Skoyrddoztuh (1 source)Onset: 787706-19-7131Oxoscrd tract infections (1 source)Urinary tract infection, site not specified; Translations: [UTI SITE NOT SPECIFIED]Onset: 85-60-0844Wbvyjliz Results Test NameValueInterpretationReference RangeFacilityCNOVon 89-84-5919FMAWQbspht Visit (NHMNS2) APRIL NICHOLSON ([id number]) 1995 F Date Time Provider Department 10/24/25 [...] Lymph 1.00 - 4.00 k/uL 0.84 Abs Lake <0.87 k/uL 0.06 Abs Eosin <0.46 k/uL [...] ZOLMitriptan (ZOMIG) 5 mg nasal sprayUse 1 [place] in the nose as needed at onset of migraine headache. If symptoms persist or return, may repeat dose in other nostril after 2 hours. Maximum of 2 sprays per 24 hoursDisp: 12 eachRfl: 5 albuterol sulfate 90 mcg/actuation breath activated powder inhalerInhale 2 Puffs as instructed every 6 hours as needed for (more content not included)... [facility] 08-11-3166YTANHeqihy Visit (NHMNS2) APRIL NICHOLSON ([id number]) 1995 F Date Time Provider Department 12/12/24 9:00 AM [facility] During your visit today, we recorded the following information about you: Pulse Blood pressure Weight 102/minute 127/79 128 kg Basil Cornelius DO 12/12/2024 9:58 AM Signed [facility] [address] [place] [address] Headache Center - Follow up Visit Accompanied [...] this. Current treatment: Preventative: Vyepti 300 mg t0ywmrqc Abortive: Zavzpret 10 mg IN prn Zomig IN prn Phenergan Last office visit 09/24/2024: Headache 1 Lo (more content not included)...NormalParkview Health Bryan HospitalCNPNon [id number] (MNOPRX) APRIL NICHOLSON ([id number]) 1995 F Date Time Provider Department 08/05/24 RHIANNON BOBO MNOPRX During your visit today, we recorded the following information about you: Rhiannon Bobo 08/06/2024 9:58 AM Signed Ambulatory Pharmacy Prior Authorization Note Provider Intervention Required?: No - Pharmacy completed on your behalf. Was the PA documented within the ePA workqueue?: No Rx Plan: Medicaid MCO ([facility]) Drug: Zavzpret 10MG/ACT solution Cover My Meds Chong: [id number] Determination: Approved Prior Authorization/Case #: [id number] Prior Authorization Expiration: 01/31/2025 Time to PA [...] refills. Prescriptions will now be processed through [facility] for determination of next steps. For questions relating to this submission, please contact [facility] at [phone] Allergies As of Date: 08/05/2024 Noted Allergy [...] Hives PROCHLORPERAZINE 12/29/2023 5 - Intolerance VYEPTI ([facility]) 05/02/2024 2 - Rash 9 - Itching Comments: Patient described extreme itching located on her chest and arms (bilaterally). Date Reviewed: 08/05/2024 Reviewed by: Curtis Lepe PA-C - Fully Assessed Reason for Visit: Insurance Authorization [[id number]] Cmt: Zavzpret 10MG/ACT solution Zavzpret 10MG/ACT solution [...] (ZOMIG) 5 mg nasal spray Use 1 [place] in the nose as needed at onset [...] Status:Closed by RHIANNON BOBO on 08/06/24[facility] 10-71-5694BYWWNwaian Visit (NHMNS2) APRIL NICHOLSON ([id number]) 1995 F Date Time Provider Department 08/02/24 11:00 AM CURTIS LEPE [facility] During your visit today, we [...] Lymph 1.00 - 4.00 k/uL 0.84 Abs Lake <0.87 k/uL 0.06 Abs Eosin <0.46 k/uL [...] ZOLMitriptan (ZOMIG) 5 mg nasal sprayUse 1 [place] in the nose as needed at onset [...] Behaviors: no pain be (more content not included)...NormalParkview Health Bryan HospitalCNPNon [phone] (NIQ) APRIL NICHOLSON ([id number]) 1995 F Date Time Provider Department 07/05/24 [...] (ZOMIG) 5 mg nasal spray Use 1 [place] in the nose as needed at onset [...] w*09/19/2023 Encounter Status:Closed by MENDOZA DOOLEY on 07/05/24NoProtestant Deaconess HospitalUrinalysis macro (dipstick) panel (U)on 11-56-7755Rzjjpedon, UANegative Negative - 4(70) +++ mg/dLNOMS HealthcareBlood, [...] - 12 mg/dLNOMS HealthcareNOMS HealthcareNCH Lab Reporton [id number] NormalNationRegency Hospital ToledoComment on above:Performed By: #### DNASTOR #### Performed at [facility], [address] [place] [address] [id number] 05-07-2024 CNPNTelephone (MNOPRX) APRIL NICHOLSON ([id number]) 1995 F Date Time Provider Department 05/07/24 [...] the PA tio. Thanks! Angely Cotton RN [facility] P: , F: Angeyl Cotton RN 05/08/2024 3:21 PM Signed [facility] received prescription(s) for Ubrelvy 100MG tablets . Benefits investigation was conducted, indicating that a prior authorization is required. All pertinent clinical information was submitted to insurance. Epic- Referral # [id number] Angely Cotton RN [facility] P: , F: Angely Cotton RN 05/13/2024 9:21 AM Signed Ambulatory Pharmacy Prior Authorization Note Provider Intervention Required?: No - Pharmacy completed on your behalf. Was the PA documented within the ePA workqueue?: No Rx Plan: Medicaid MCO ([facility]) Drug: Ubrelvy 100MG tablets Cover My Meds Chong: [id number] Determination: Approved Prior Authorization/Case #: [id number] Prior Authorization Expiration: 05/07/24 Time to PA [...] refills. Prescriptions will now be processed through [facility] for determination of next steps. For questions relating to this submission, please contact [facility] at [phone] Allergies As of Date: 05/07/2024 Noted Allergy [...] Intolerance VORTIOXETINE 08/06/2021 4 - Hives VYEPTI ([facility]) 05/02/2024 2 - Rash 9 - Itching [...] (ZOMIG) 5 mg nasal spray Use 1 [place] in the nose as needed at onset [...] Encounter Status:Closed by MU (more content not included)...NormalL[facility] County [facility] West ClevelandIGP,APTIMA HPV,AGE GDLNon 50-13-4137HMT GDLN ACOG TESTINGNote. NOMS HealthcareComment on above:TESTS RESULT FLAG UNITS REF RANGE LAB Clinician Provided Cytology Information Source.............Vagina No. of containers..01 ThinPrep Vial Age Algo ACOG Becca... -20 03 FLAG LEGEND: L-Low Normal,H-High Normal,LL-Alert Low,HH-Alert High <-Panic Low,>-Panic High,A-Abnormal,AA-Critical Abnormal Performed at: 01 =[facility] [address] [place] [address] Pearl Franco MD, IGP, RFX APTIMA HPV ASCUNote.NOMS HealthcareComment on above:TESTS RESULT FLAG UNITS REF RANGE LAB DIAGNOSIS: 02 NEGATIVE FOR INTRAEPITHELIAL LESION OR MALIGNANCY. Specimen adequacy: 02 Satisfactory for evaluation. No endocervical component is identified. Performed by: Daksha Nichole, Maintenance Equipment Operator . 02 Note: Note 02 The Pap [...] High,A-Abnormal,AA-Critical Abnormal Performed at: 02 [facility] [address] [place] [address] Pearl Franco MD, Performed at: =G - [facility] [address] [id number] Veneer Production Machine Operator: Pearl Franco MD, Phone: [phone] Performed at: - [facility] [id number] Veneer Production Machine Operator: Pearl Franco MD, Phone: [phone] SPATULA-ALONE VAGINA CLINISYNCNOMS HealthcareCBC auto differentialon 79-51-1110Sflg form neutrophils/100 WBC (Bld)3 %[facility] DublinEosinophils (Bld) [#/Vol]0.3 10*3/uLSelect Medical OhioHealth Rehabilitation Hospital - DublinEosinophils/100 WBC (Bld)3 %[facility] - DublinErythrocyte distribution width (RBC) [Ratio]13.7 %11.5 - 15.0 %[facility] - DublinHematocrit (Bld) [Volume fraction]32.8 %Low35 - 47 %[facility] DublinHemoglobin (Bld) [Mass/Vol]11.1 g/dLLow11.7 - 15.5 g/dLSelect Medical [facility] Rehabilitation Hospital - DublinInterpretation and review of laboratory resultsAbnormalSelect Medical [facility] Rehabilitation Hospital - DublinLymphocytes (Bld) [#/Vol]1.2 10*3/[facility] Lymphocytes/100 WBC (Bld)12 %[facility] DublinMCH (RBC) [Entitic mass]29 pg27 - 34 pgPCleveland Clinic Avon HospitalMCHC (RBC) [Mass/Vol]33.8 g/dL32 - 36 g/dL [facility] DublinMCV (RBC) [Entitic vol]86 fL80 - 100 [facility] WashingtonMonocytes (Bld) [#/Vol]0.6 10*3/[facility]awMonocytes/100 WBC (Bld)6 %[facility] DublinNeutrophils (Bld) [#/Vol]7.6 10*3/uLHigh [facility] DublinPlatelet mean volume (Bld) [Entitic vol]7.7 fL7 - 12 fL [facility] DublinPlatelets (Bld) [#/Vol]225 10*3/[facility] Polychromasia LM Ql (Bld)1+AbnormalNONE^NONESelect Medical [facility] Hospital - DublinRBC (Bld) [#/Vol]3.82 10*6/uLAtrium Health Wake Forest Baptistegmented neutrophils/100 WBC (Bld)76 %[facility] DublinWBC corrected for nucl RBC Auto (Bld) [#/Vol]9.7 [facility] HarrisburgComprehensive metabolic panelon 99-73-6623Tpuqhtt [Mass/Vol]3.3 g/dL3.2 - 5.3 g/dLProUniversity [facility]als [facility] SystemALP [Catalytic activity/Vol]80 U/L39 - 130 U/[facility] Health SystemALT No additional P-5'-P [Catalytic activity/Vol]39 U/LHigh0 - 31 U/[facility] SystemAnion gap [Moles/Vol]7 mmol/L5 - 15 mmol/LPrSCL Health [facility] Health SystemAST [Catalytic activity/Vol]16 U/L0 - 41 U/[facility] SystemBilirubin [Mass/Vol]0.3 mg/dL0.3 - 1.2 mg/dLSelect Medical [facility] Hospital - DublinCalcium [Mass/Vol]9.2 mg/dL8.5 - 10.5 mg/dLSelect Medical [facility] - DublinChloride [Moles/Vol]107 mmol/L98 - 109 mmol/[facility] SystemCO2 [Moles/Vol]27 mmol/L22 - 32 mmol/[facility] SystemCreatinine [Mass/Vol]0.55 mg/dL0.40 - 1.00 mg/dLSelect Medical [facility] Hospital - DublinComment on above:METHOD TRACEABLE TO [facility] STANDARDeGFR (CKD-EPI)non-race dependent- [facility] County Medical CenterComment on above: Reported eGFR is based on the CKD-EPI 2020 equation that does not use a race coefficient. Glucose [Mass/Vol]102 mg/gYAjht97 - 99 mg/dLSelect [facility] Interpretation and review of laboratory resultsAbnormalSelect Medical [facility] Potassium [Moles/Vol]4.1 mmol/L3.5 - 5.0 mmol/[facility] Health SystemProtein [Mass/Vol]6.4 g/dL6.0 - 8.0 g/dLAtrium Health Wake Forest Baptistodium [Moles/Vol]141 mmol/L134 - 146 mmol/[facility] SystemUrea nitrogen [Mass/Vol]9 mg/dL5 - 23 mg/dLSelect Specialty Hospital - HarrisburgBacteria identified Cx Nom (U)on 49-66-3138Jmhtvqq comment (Unsp spec) [Interp]URINE RECEIVED WITHOUT PRESERVATIVEProUniversity [facility] SystemService comment (Unsp spec) [Interp]10-50,000 ORGANISMS/mL NORMAL UROGENITAL FLORAProLehigh Valley Health NetworkBasic Metabolic Panelon 20-90-2359Gbrwx gap [Moles/Vol]12 mmol/L5 - 15 mmol/LPrDiley Ridge Medical Center SystemCalcium [Mass/Vol]8.9 mg/dL8.5 - 10.5 mg/dL [facility] DublinChloride [Moles/Vol]103 mmol/L98 - 109 mmol/LPrSCL Health [facility] Health SystemCO2 [Moles/Vol]24 mmol/L22 - 32 mmol/LPrDiley Ridge Medical Center System Creatinine [Mass/Vol]0.61 mg/dL0.40 - 1.00 mg/dLSelect Medical [facility] Hospital - DublinComment on above:METHOD TRACEABLE TO IDMN STANDARDeGFR (CKD-EPI)non-race dependent- PINF [facility] DublinComment on above: Reported eGFR is based on the CKD-EPI 2020 equation that does not use a race coefficient. Glucose [Mass/Vol]106 mg/hIOrnb69 - 99 mg/dLSelect Medical [facility] Interpretation and review of laboratory resultsAbUniversity of Pittsburgh Medical Center Potassium [Moles/Vol]4 mmol/L3.5 - 5.0 mmol/[facility] SystemSodium [Moles/Vol]139 mmol/L134 - 146 mmol/LPrDiley Ridge Medical Center SystemUrea nitrogen [Mass/Vol]9 mg/dL5 - 23 mg/dLSelect Specialty Hospital - HarrisburgCBC auto differentialon 08-64-3955Vghg form neutrophils/100 WBC (Bld)1 %[facility] DublinEosinophils (Bld) [#/Vol]0.8 10*3/uLChildren's Hospital of The King's Daughters Eosinophils/100 WBC (Bld)6 %[facility] DublinErythrocyte distribution width (RBC) [Ratio]13.5 %11.5 - 15.0 %[facility] - DublinHematocrit (Bld) [Volume fraction]32.9 %Low35 - 47 %[facility] DublinHemoglobin (Bld) [Mass/Vol]11.2 g/dLLow11.7 - 15.5 g/dLSelect Medical [facility] Hospital - DublinInterpretation and review of laboratory resultsAbUniversity of Pittsburgh Medical CenterLymphocytes (Bld) [#/Vol]1.5 10*3/[facility]aginawLymphocytes/100 WBC (Bld)11 %[facility] DublinMCH (RBC) [Entitic mass]28.8 pg27 - 34 [facility] MCHC (RBC) [Mass/Vol]34 g/dL32 - 36 g/dLSelect Medical [facility] Rehabilitation Hospital - DublinMCV (RBC) [Entitic vol]85 fL80 - 100 [facility] WashingtonMonocytes (Bld) [#/Vol]0.5 10*3/uLSelect Medical [facility] Rehabilitation Hospital - DublinMonocytes/100 WBC (Bld)4 %[facility] Neutrophils (Bld) [#/Vol]10.6 10*3/uLChildren's Hospital of The King's DaughtersPlatelet mean volume (Bld) [Entitic vol]7.5 fL7 - 12 [facility] WashingtonPlatelets (Bld) [#/Vol]232 10*3/[facility]aginawPolychromasia LM Ql (Bld)1+Abnormal NONE^NONESelect Medical [facility] Hospital - DublinRBC (Bld) [#/Vol]3.89 10*6/[facility] Hospitalegmented neutrophils/100 WBC (Bld)78 %[facility] DublinWBC corrected for nucl RBC Auto (Bld) [#/Vol]13.4HighNazareth HospitalMRSA DNA SAURABH+probe Ql (Unsp spec)on [id number] Medical OhioHealth Rehabilitation Hospital - DublinMrsa Pcr nasal swabon 61-10-6123TCFV DNA SAURABH+probe Ql (Unsp spec) NegativeNegative^NegativeSelect Medical [facility]Health Rehabilitation Hospital - DublinAPTTon 86-24-8172cYCF Coag (PPP) [Time]35 [facility] HospitalBasic Metabolic Panelon 05-12-5636Poprx gap [Moles/Vol]10 mmol/L5 - 15 mmol/[facility] SystemCalcium [Mass/Vol]9.4 mg/dL8.5 - 10.5 mg/dLSelect Medical [facility] - DublinChloride [Moles/Vol]101 mmol/L98 - 109 mmol/[facility] SystemCO2 [Moles/Vol]26 mmol/L22 - 32 mmol/[facility] HospitalCreatinine [Mass/Vol]0.61 mg/dL0.40 - 1.00 mg/dLSelect Medical [facility] Rehabilitation Hospital - DublinComment on above:METHOD TRACEABLE TO IDMN STANDARDeGFR (CKD-EPI)non-race dependent- [facility] Medical CenterComment on above: Reported eGFR is based on the CKD-EPI 2020 equation that does not use a race coefficient. Glucose [Mass/Vol]94 mg/dL65 - 99 mg/dLSelect Medical [facility] Rehabilitation Hospital - DublinPotassium [Moles/Vol]4 mmol/L3.5 - 5.0 mmol/[facility] SystemSodium [Moles/Vol]137 mmol/L134 - 146 mmol/[facility] HospitalUrea nitrogen [Mass/Vol]10 mg/dL5 - 23 mg/dLSelect Medical [facility] Hospital - DublinC-reactive proteinon [id number] [Mass/Vol] 15.4 mg/dLHigh0.000 - 0.744 mg/dLSelect Medical [facility] - DublinCBC auto differentialon [id number] (Bld) [#/Vol]0.1 10*3/uLSelect Medical [facility]Health Rehabilitation Hospital - DublinBasophils/100 WBC (Bld)0.5 %[facility] DublinEosinophils (Bld) [#/Vol]0.2 10*3/uL [facility] DublinEosinophils/100 WBC (Bld)1.1 %[facility] Erythrocyte distribution width (RBC) [Ratio]13.4 %11.5 - 15.0 %[facility] DublinHematocrit (Bld) [Volume fraction]37.6 %35 - 47 %[facility] Hemoglobin (Bld) [Mass/Vol]12.8 g/dL11.7 - 15.5 g/dLSelect Medical [facility] Interpretation and review of laboratory resultsAbnormalSelect Medical [facility] Lymphocytes (Bld) [#/Vol]1.3 10*3/uLSelect Medical OhioHealth Rehabilitation Hospital - DublinLymphocytes/100 WBC (Bld)6.7 %[facility]-FairhillH (RBC) [Entitic mass]28.7 pg27 - 34 pg [facility] DublinMCHC (RBC) [Mass/Vol]34.1 g/dL32 - 36 g/dLSelect Medical [facility]Health Rehabilitation Hospital - DublinMCV (RBC) [Entitic vol]84 fL80 - 100 [facility] Monocytes (Bld) [#/Vol]0.7 10*3/[facility]awMonocytes/100 WBC (Bld) 3.5 %[facility] DublinNeutrophils (Bld) [#/Vol]17.2 10*3/uLHighSelect Medical OhioHealth Rehabilitation Hospital - DublinNeutrophils/100 WBC (Bld)88.2 %[facility] DublinPlatelet mean volume (Bld) [Entitic vol]8.5 fL7 - 12 [facility] SystemPlatelets (Bld) [#/Vol]290 10*3/[facility]awRBC (Bld) [#/Vol]4.46 10*6/[facility]awWBC corrected for nucl RBC Auto (Bld) [#/Vol]19.6HighSelect Specialty Hospital - HarrisburgCRP [Mass/Vol]on 03-36-3805Hysdabfwtpslnr and review of laboratory resultsAbnormalSelect Specialty Hospital - HarrisburgCT Abdomen and Pelvis W contrast Pat [id number] ABDOMEN AND PELVIS W CONT HISTORY: Abdominal [...] with and/or edited the report Finalized by Kyel Solorio MD on 04/08/2024 4:09 PMSECTRAPACSKyle Solorio [...] 4:09 PM [facility] SystemRadiology Study observation (narrative)[facility] CenterCT Abdomen and Pelvis W contrast IVOrdered By: Kyle Solorio on 04-08-2024 [facility] Work Phone: ecg 12 leadon 90-13-9626LPCGIABVFIPDNTYhqShmdtj Health SystemLaboratory - Microbiology and Antimicrobial susceptibilityon 04-08-2024 FLUAV+FLUBV RNA SAURABH+probe Ql (Unsp spec)NegativeNegative^NegativeMercy Health Perrysburg Hospital SystemLactate (P anuradha) [Moles/Vol]on [id number] Medical [facility] Lactate w/ Reflexon 94-68-6559Cfxyipw (P anuradha) [Moles/Vol]0.8 mmol/L0.4 - 2.0 mmol/[facility] SystemComment on above: Result did not trigger repeat Lactate, re-order if needed. Liver panelon [id number] [Mass/Vol]3.9 g/dL3.2 - 5.3 g/dLSelect Medical [facility]Health Rehabilitation Hospital - DublinALP [Catalytic activity/Vol]88 U/L39 - 130 U/[facility] SystemALT No additional P-5'-P [Catalytic activity/Vol]59 U/LHigh0 - 31 U/[facility] SystemAST [Catalytic activity/Vol]26 U/L0 - 41 U/[facility] System Bilirubin [Mass/Vol]0.7 mg/dL0.3 - 1.2 mg/dLSelect [facility] Bilirubin.direct [Mass/Vol]0 mg/dL0.0 - 0.4 mg/dLSelect [facility] Interpretation and review of laboratory resultsAbnormalSelect Medical [facility] Protein [Mass/Vol]7.3 g/dL6.0 - 8.0 g/dLSelect Medical [facility] Rehabilitation Hospital - DublinMagnesiumon 30-20-2054Rqapivbuq [Mass/Vol]1.8 mg/dL1.8 - 2.6 mg/dLSelect Medical [facility] Hospital - DublinNo Panel Informationon 43-49-9333PjpGvyeyqSelect Specialty Hospital - HarrisburgPOCT Nursing Urine Macroscopic UAon 03-40-6245Tsahhuare Ql (U)Negative Negative^NegativeProMedica Health SystemGlucose [Mass/Vol]Negative Negative^Negative mg/dLSelect Medical [facility] Hospital - DublinHemoglobin Ql (U)TraceAbnormal Negative^NegativeSelect Medical [facility] Rehabilitation Hospital - DublinInterpretation and review of laboratory resultsAbnoAtrium Health LincolnKetones (U) [Mass/Vol]Negative Negative^Negative mg/dLSelect Medical [facility] Rehabilitation Hospital - DublinLeukocyte esterase Test strip Ql (U)NegativeNegative^NegativeSelect Medical [facility] Hospital - DublinNitrite Ql (U)Negative Negative^NegativeSelect Medical [facility]Health Rehabilitation Hospital - DublinpH (U)7.5 [pH]5.0 - 8.5PCleveland Clinic Avon HospitalProtein Ql (U)TraceAbnormalNegative^Negative mg/dLSelect [facility] Specific gravity (U) [Rel density]1.021.003 - 1.035[facility] Urobilinogen Qn (U)0.2NINFSelect Specialty Hospital - HarrisburgProtime & INRon 00-56-5801KVT Coag (PPP) [Relative time]1.3 {INR}HighSelect Medical OhioHealth Rehabilitation Hospital - DublinInterpretation and review of laboratory resultsAbnoAtrium Health LincolnPT Coag (PPP) [Time]14.7 sHigWilson Medical CenterARS/FLU A+B/RSV by NAAT/Molecular (M4RT Collection Tube)on 80-24-5561GUG RNA SAURABH+probe Nom (Unsp spec)NegativeNegative^NegativeAtrium Health Wake Forest BaptistARS-CoV-2 (COVID-19) RNA SAURABH+probe Ql (Resp)Not detectedNot Detected^Not DetectedSelect Medical [facility] Comment on above:NOTE The Xpert Xpress SARS-CoV-2/Flu/RSV [...] operators who are performing tests using either [employer] or [employer] systems and is limited to laboratories that [...] specimen repeat. Fact Sheet for Healthcare Providers: https://www.fda.gov/media/804404/download Fact Sheet for Patients: https://www.fda.gov/media/284691/download [facility] DublinThyroid profile includes TSH FT4on 97-65-4002Nmrk T4 [Mass/Vol]0.62 ng/dL0.61 - 1.60 ng/dLSelect Medical OhioHealth Rehabilitation Hospital - DublinTSH Qn0.54 m[IU]/L [facility] HarrisburgTroponin I, High Sensitivityon 69-17-5153Emcxpbha I.cardiac High sensitivity method [Mass/Vol]2 ng/LNINF - 16 ng/LProMedPremier Health Miami Valley HospitalTroponin I, High Sensitivity 1 Houron 04-08-2024 Troponin I.cardiac High sensitivity method [Mass/Vol]2 ng/LNINF - 16 ng/L [facility] DublinTroponin I.cardiac High sensitivity method [Mass/Vol]on 35-26-8968XhqVpuhhdSelect Specialty Hospital - HarrisburgXR Chest Single viewon 04-08-2024 XR CHEST 1 VW History: Short of breath. One view study. Comparison: 01/23/2024 Impression: * Lungs are now clear. No focal airspace disease or infiltrate is appreciated. No acute process is seen. Finalized by Renetta Andrea MD on 04/08/2024 2:12 PMSECTRAJefferson Comprehensive Health Centermarbin, Renetta Gentile MD - 04/08/2024 XR CHEST 1 VW History: Short of breath. One view study. Comparison: 01/23/2024 Impression: * Lungs are now clear. No focal airspace disease or infiltrate is appreciated. No acute process is seen. Finalized by Renetta Andrea MD on 04/08/2024 2:12 PM [facility] DublinRadiology Study observation (narrative)[facility] SystemXR Chest Single viewOrdered By: Renetta Andrea on 80-89-4955NibKddqtySelect Medical [facility] Dublin Work Phone: ecg 12 leadon 09-47-9299TSPTNPPKAYZKRXPjqFyqnha Health SystemABO Rh Repeaton 52-38-9107SDLYKajWsotcjNYC Health + HospitalsRh Nom (Bld)Positive [facility] SystemType and screen(includes indirect ady)on 08-73-4466SOPORoxZitjfsNYC Health + HospitalsRh Nom (Bld)PositiveGundersen Boscobel Area Hospital and Clinics SystemRespiratory allergy panelon 03-21-2024. alternata IgE Qn [...] kU/LProMedica Health SystemComment on above:Class 0: NormalCalifornia Mcclusky Pollen IgE Qn (S)kU/LNINF - 0.10 kU/L [...] level of Allergy, indicative of ongoing sensitization [place] IgE Qn (S)0.25 kU/LHighNINF - 0.10 kU/LProMedica Health SystemComment on above:Class 0/1: Low level of Allergy, ongoing sensitization Dog dander IgE Qn (S)52.5 kU/LHighNINF - 0.10 kU/LProMedica Health SystemComment on above:Class 5:Very High level of Allergy,indicative of very high level sensitization house dust mite IgE Qn (S)kU/LNINF - 0.10 kU/LProMedica Health System Comment on above:Class 0: NormalGoosefoot IgE Qn (S)kU/LNINF - 0.10 kU/L [facility] Healthcarea Health SystemComment on above:Class 0: NormalIgE Qn602 [IU]/LHigh ProMst. vincent's st. clair Health SystemInterpretation and review of laboratory resultsAbnormal [facility] SystemJohnson grass IgE Qn (S)0.96 kU/LHighNINF - 0.10 kU/L [facility] SystemComment on above:Class 2:Moderate level of [...] Health SystemComment on above:Class 0: NormalPecan or Mesa Tree IgE Qn (S)0.17 kU/LHighNINF - 0.10 kU/LProMedica Health SystemComment on above: Class 0/1: Low level of Allergy, ongoing sensitization Saltwort IgE Qn (S)0.38 kU/LHighNINF - 0.10 kU/LProMedica Health SystemComment on above:Class 1:Low level of Allergy, indicative of ongoing sensitization Sheep [place] IgE Qn (S)kU/LNINF - 0.10 kU/LProMedica Health SystemComment on above:Class 0: NormalSilver Birch IgE Qn (S)kU/LNINF - 0.10 kU/LProMedica Health SystemComment on above:Class 0: NormalTimothy IgE Qn (S)1.92 kU/LHighNINF - 0.10 kU/LProMedica Health SystemComment on above:Class 2:Moderate level of Allergy, indicative of stronger ongoing sensitization [place] IgE Qn (S)kU/LNINF - 0.10 kU/LProMedica [facility] SystemComment on above: Class 0: NormalWhite Elm IgE Qn (S)kU/LNINF - 0.10 kU/LProMedica Health System Comment on above:Class 0: NormalWhite mulberry IgE Qn (S)kU/LNINF - 0.10 kU/L [facility] Healthcarea [facility] SystemComment on above:Class 0: NormalWhite [place] IgE Qn (S)kU/L NINF - 0.10 kU/LProMedica [facility] SystemComment on above:Class 0: NormalSelect Medical OhioHealth Rehabilitation Hospital - DublinPulmonary function test Spirometry (Flow Volume Loop)Ordered By: Dinorah Cummins on 41-60-1801YebAttofiSelect Medical OhioHealth Rehabilitation Hospital - DublinCA 125on 51-50-2473Crofll Ag 125 Qn7 [arb'U]/mL0 - 35 U/mLSelect Medical OhioHealth Rehabilitation Hospital - DublinComment on above: The method used for this test is [employer] DXI chemiluminescent immunoassay. Values obtained by different assay methods cannot be used interchangeably. CBC auto differentialon 07-32-7136Zgclknmzp (Bld) [#/Vol]0 10*3/uLSelect Medical OhioHealth Rehabilitation Hospital - DublinBasophils/100 WBC (Bld)0.6 %[facility] DublinEosinophils (Bld) [#/Vol]0.5 10*3/uLHighSelect Medical OhioHealth Rehabilitation Hospital - DublinEosinophils/100 WBC (Bld)8.4 %[facility] - DublinErythrocyte distribution width (RBC) [Ratio]13.6 %11.5 - 15.0 %[facility] - DublinHematocrit (Bld) [Volume fraction]40.6 %35 - 47 % [facility] - DublinHemoglobin (Bld) [Mass/Vol]13.7 g/dL11.7 - 15.5 g/dL [facility] - DublinInterpretation and review of laboratory resultsAbnormal [facility] - DublinLymphocytes (Bld) [#/Vol]1.3 10*3/uLSelect Medical OhioHealth Rehabilitation Hospital - DublinLymphocytes/100 WBC (Bld)23.5 %[facility] - DublinMCH (RBC) [Entitic mass]29.2 pg27 - 34 [facility]itan HospitalMCHC (RBC) [Mass/Vol]33.7 g/dL32 - 36 g/dLSelect Medical OhioHealth Rehabilitation Hospital - DublinMCV (RBC) [Entitic vol]87 fL80 - 100 [facility] WashingtonMonocytes (Bld) [#/Vol]0.3 10*3/uLSelect Medical [facility] Monocytes/100 WBC (Bld)5.3 %[facility] - DublinNeutrophils (Bld) [#/Vol]3.5 10*3/uLSelect Medical OhioHealth Rehabilitation Hospital - DublinNeutrophils/100 WBC (Bld)62.2 %[facility] DublinPlatelet mean volume (Bld) [Entitic vol]8.9 fL7 - 12 [facility] WashingtonPlatelets (Bld) [#/Vol]233 10*3/uLSelect Medical OhioHealth Rehabilitation Hospital - DublinRBC (Bld) [#/Vol] 4.67 10*6/HealthSource SaginawWBC corrected for nucl RBC Auto (Bld) [#/Vol] 5.7[facility] Clinics SystemCEAon 03-18-2024 Carcinoembryonic Ag [Mass/Vol]0.9 ng/mL0.0 - 3.0 ng/mLSelect [facility] Comment on above: 0.0-3.0 ng/mL FOR NON SMOKERS 0.0-5.0 ng/mL FOR SMOKERS The method used for this test is [employer] DXI chemiluminescent immunoassay. Values obtained by different assay methods cannot be used interchangeably. Cancer Ag 125 Qnon 03-05-5794ErxWrdrmaSelect Medical OhioHealth Rehabilitation Hospital - DublinCancer Ag 19-9 Qnon 60-27-3777YfcNdyboySelect Medical OhioHealth Rehabilitation Hospital - DublinCancer antigen 19-9on 15-69-7340Rlmzdj Ag 19-9 QnU/mL0.0 - 35.0 U/mLFayette County Memorial Hospital Lifeproof Mymichigan Medical CenterComment on above: The method used for this test is [employer] DXI chemiluminescent immunoassay. Values obtained by different assay methods cannot be used interchangeably. Carcinoembryonic Ag [Mass/Vol]on 14-00-6394MpbBuxnhh Health SystemComprehensive metabolic panelon 85-21-1323Dzfrwwd [Mass/Vol]4.3 g/dL3.2 - 5.3 g/dLProNorth Alabama Specialty Hospital Health SystemALP [Catalytic activity/Vol]51 U/L39 - 130 U/LProMedica Health SystemALT No additional P-5'-P [Catalytic activity/Vol]21 U/L0 - 31 U/[facility] Health SystemAnion gap [Moles/Vol]10 mmol/L5 - 15 mmol/LProMedica Health System AST [Catalytic activity/Vol]15 U/L0 - 41 U/LProMeduniversity of south alabama children's and women's hospital Health SystemBilirubin [Mass/Vol]0.5 mg/dL0.3 - 1.2 mg/dLMercy Health Perrysburg Hospital SystemCalcium [Mass/Vol]9.2 mg/dL8.5 - 10.5 mg/dLMercy Health Perrysburg Hospital SystemChloride [Moles/Vol]104 mmol/L98 - 109 mmol/[facility] Health SystemCO2 [Moles/Vol]27 mmol/L22 - 32 mmol/[facility] SystemCreatinine [Mass/Vol]0.62 mg/dL0.40 - 1.00 mg/dLSelect Medical OhioHealth Rehabilitation Hospital - DublinComment on above:METHOD TRACEABLE TO IDMN STANDARDeGFR (CKD-EPI)non-race dependent- [facility] Medical CenterComment on above: Reported eGFR is based on the CKD-EPI 2020 equation that does not use a race coefficient. Glucose [Mass/Vol]88 mg/dL65 - 99 mg/dLSelect Medical OhioHealth Rehabilitation Hospital - DublinInterpretation and review of laboratory resultsAbnormalMercy Health Perrysburg Hospital SystemPotassium [Moles/Vol]3.4 mmol/LLow3.5 - 5.0 mmol/LProMedica Health SystemProtein [Mass/Vol]6.6 g/dL6.0 - 8.0 g/dLMercy Health Perrysburg Hospital SystemSodium [Moles/Vol]141 mmol/L134 - 146 mmol/[facility]ica Health SystemUrea nitrogen [Mass/Vol]12 mg/dL5 - 23 mg/dLGundersen Boscobel Area Hospital and Clinics SystemCNPNon 20-99-2135QOQK Telephone ([facility]) APRIL NICHOLSON ([id number]) 1995 F Date Time Provider Department 02/22/24 SAGAR BARTH [facility] During your visit today, we recorded the following information about you: Jannette Castrejon RN 02/22/2024 12:04 PM Signed Prior Authorization submitted via [employer] on 02/22/2024: Insurance: [place] Medicaid Medication: Zolmitriptan Chong Code: [id number] Awaiting Response Jannette Castrejon RN 03/14/2024 2:23 [...] Date Reviewed: 01/22/2024 Reviewed by: Raiza Shields APRN.MANUFACTURING TECH - Fully Assessed Reason for Visit: Insurance Authorization [[id number]] Cmt: Zolmitriptan Prescriptions as of 03/14/2024 - ZOLMitriptan (ZOMIG) 5 mg nasal spray Use 1 [place] in the nose as needed at onset [...] w*09/19/2023 Encounter Status:Closed by JANNETTE CASTREJON on 02/22/24[facility] PELVIS W/ TRANSVAGINALon 11-43-0920[place] [address] Ultrasound Report Signed Patient: MARGARET NICHOLSON MR#: [id number] : 1995 Acct:[id number] Age/Sex: 28 / F ADM Date: 02/19/24 Loc: US Attending Dr: Zay Blas D.O. Ordering Physician: Zay Blas D.O. Date of Service: 02/19/24 Procedure(s): US pelvis w/ transvaginal Accession Number(s): [id number] cc: Zay Blas D.O.; Lamont Blair M.D. [address] [place] [address] Patient Name: MARGARET NICHOLSON MRN: [id number] date: 1995 Sex: F Assigned Patient Location: [place] Current Patient Location: [place] Accession/Order Number: [id number] Exam Date: 02/19/2024 07:11 Report Date: 02/19/2024 [...] M.D. Signed By: 02/19/24807 DD/ 4 TD/TT: Senior Restaurant Manager:TBHRadiology, Radiologist, - 02/19/2024 [address] [place] [id number] Ultrasound Report Signed Patient: MARGARET NICHOLSON MR#: [id number] : 1995 Acct:[id number] Age/Sex: 28 / F ADM Date: 02/19/24 Loc: [place] Attending Dr: Zay Blas D.O. Ordering Physician: Zay Blas D.O. Date of Service: 02/19/24 Procedure(s): US pelvis w/ transvaginal Accession Number(s): [id number] cc: Zay Blas D.O.; Lamont Blair M.D. [place] [address] Patient Name: MARGARET NICHOLSON MRN: [id number] date: 1995 Sex: F Assigned Patient Location: [place] Current Patient Location: [place] Accession/Order Number: [id number] Exam Date: 02/19/2024 07:11 Report Date: 02/19/2024 [...] M.D. Signed By: 02/19/24807 DD/ 4 TD/TT: Senior Restaurant Manager: ARLEN HealthcareRadiology Study observation (narrative)NOMKrupa HealthcareUS PELVIS W/ TRANSVAGINALOrdered By: Radiologist Radiology on 44-20-5042DQWC Healthcare Work Phone: Pathology Request for Lab Corpon 88-88-6336Kmqnhyhek Request for Lab CorpNormKindred Hospital Bay Area-St. Petersburg Physician GroupComment on above:Order Comment: PATHOLOGY GI SPECIMENResult Comment: See report. Scanned copy available in EMR. PERFORMED BY: [place] [address] PATHOLOGIST FRAMEMAN PALOMO JOYCE M.D.Performed By: #### PATH [facility] #### [place] [address] USACNPNon [id number] ([facility]) APRIL NICHOLSON ([id number]) 1995 F Date Time Provider Department 01/29/24 SAGAR BARTH [facility] During your visit today, we recorded the following information about you: Kelsey Patel 01/29/2024 10:53 AM Signed Name of Caller: nicky Relationship to patient: pharmacy Last visit in this department: 09/19/2023 Reason for Call: Other : need to verify quantity on zolmitriptan. Callback number: [phone] Amy Shrestha MA 01/29/2024 12:06 PM Signed Per last Rx on 11/10/2023: Disp Refills Start End ZOLMitriptan (ZOMIG) 5 mg nasal spray 10 Each 5 11/10/2023 -- Sig: Use 1 [place] in the nose as needed at onset [...] spray 12 Each 5 Sig: Use 1 [place] in the nose as needed at onset [...] Date Reviewed: 01/22/2024 Reviewed by: Raiza Shields APRN.MANUFACTURING TECH - Fully Assessed Order(s):ZOLMitriptan (ZOMIG) 5 mg nasal sprayUse 1 [place] in the nose as needed at onset of migraine headache. If symptoms persist or return, may repeat dose in other nostril after 2 hours. Maximum of 2 sprays per 24 hoursDisp: 12 EachRfl: 5 Prescriptions as of 02/01/2024 - ZOLMitriptan (ZOMIG) 5 mg nasal spray Use 1 [place] in the nose as needed at onset [...] 5 01/30/2024 Route: NASAL Sig: Use 1 [place] in the nose as needed at onset of migraine headache. If symptoms persist or return, may repeat dose in other nostril after 2 hours. Maximum of 2 sprays per 24 hours Medications Discontinued During This Encounter Prescriptions - ZOLMitriptan (ZOMIG) 5 mg nasal spray (Discontinued) Use 1 [place] in the nose as needed at onset of migraine headache. If symptoms persist or return, may repeat dose in other nostril after 2 hours. Maximum of 2 sprays per 24 hours Encounter Status:Closed by KELSEY PATEL on 01/30/24[facility] 10-07-0092PQPTPfqten Visit (NHMNS2) NICHOLSONCAROLINA ROGERSRA Fernández ([id number]) 1995 F Date Time Provider Department 01/22/24 2:30 PM RAIZA SHIELDS [facility] During your visit today, we recorded the following information about you: Raiza Shields APRN.[facility] 01/22/2024 1:57 PM Signed Headache Center [...] Lymph 1.00 - 4.00 k/uL 0.84 Abs [place] <0.87 k/uL 0.06 Abs Eosin <0.46 k/uL [...] ZOLMitriptan (ZOMIG) 5 mg nasal sprayUse 1 [place] in the nose as needed at onset [...] and clear, coherent, and relevant. 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 Ibis Pedraza TESTPositiveACMC Healthcare System GlenbeighCompaul [facility] on above: Performed By: #### BMP #### [facility] [address] [place] [address] Dr. Ibis An excess Calc (Bld) [Moles/Vol]-1.6000 mmol/LNormal-2.0-2.0[facility] on above:Performed By: #### BMP #### [facility] [address] [place] [address] Dr. Ibis Elizalde SCC[facility] Hospital LimaCompaul [facility] on above: Performed By: #### BMP #### [facility] [address] [place] [address] Dr. Ibis JimenezCPAPParkview Health on above:Performed By: #### BMP #### [facility] [address] [place] [address] Dr. Ibis JimenezYzifrJIL4LdaxzkYuhParkview Health on above:Performed By: #### BMP #### [facility] [address] [place] [address] Dr. Ibis JimenezHCO3 (Bld) [Moles/Vol]23.8 mmol/MEqafbv14.0-26.0[facility] on above:Performed By: #### BMP #### [facility] [address] [place] [address] Dr. Ibis JimenezLPMNCleveland Clinic Lutheran Hospital on above:Performed By: #### BMP #### [facility] [address] [address] [address] Ibis Sheffield [facility] Arthur [facility]. Bing, MD, Cancer CenterComment on above: Performed By: #### BMP #### [facility] [address] [address] [address] Ibis Amezquita (Bld) [Partial pressure]75.5 mm[Hg]Critically low 80.0-100.0The [facility] Medical CenterComment on above:Performed By: #### BMP #### [facility] [address] [address] [address] Ibis Amezquita saturation in Blood95.8 %Jfnall24.0-100.0The [facility] Medical CenterComment on above:Performed By: #### BMP #### [facility] [address] [place] [address] Dr. Ibis JimenezPCO241.8 eeYgDldjfg25.0-45.0The [facility] Medical CenterCompaul o[facility] memorial hospital on above:Performed By: #### BMP #### [facility] [address] [place] [address] Dr. Ibis JimenezParkwood HospitalCompaul [facility] memorial hospital on above:Performed By: #### BMP #### [facility] [address] [place] [address] Dr. Ibis JimenezpH (Bld)7.363 [pH]Normal7.350-7.450The [facility] Medical CenterCompaul [facility] memorial hospital on above:Performed By: #### BMP #### [facility] [address] [place] [address] Dr. Ibis RennerormalThe [facility] Medical CenterCompaul [facility] memorial hospital on above:Performed By: #### BMP #### [facility] [address] [place] [address] Dr. Ibis JimenezBethesda North HospitalCompaul [facility] memorial hospital on above:Performed By: #### BMP #### [facility] [address] [place] [address] Dr. Ibis Lindsey Kettering HealthCompaul [facility] on above: Performed By: #### BMP #### [facility] [address] [place] [address] Dr. Ibis OliveiraThe [facility] Medical CenterComment on above:Performed By: #### BMP #### [facility] [address] [place] [address] Dr. Ibis Chow UK HealthcareComment on above:Performed By: #### BMP #### [facility] [address] [place] [address] [address] Joseph Warren HospitalComment on above:Performed By: #### BMP #### [facility] [address] [place] [address] Dr. Ibis Alexis AUTO DIFFon 07-63-1676ANLP #0.0 103/ulNormal0.0-0.1The The Jewish Hospitalment on above:Performed By: #### ACET, SALYC #### [facility] [address] [place] [address] Dr. Ibis JimenezBasophils/100 WBC (Bld)0.5 %Normal0.2-2.0[facility] Comment on above:Performed By: #### ACET, SALYC #### [facility] [address] [place] [address] Dr. Ibis Acevedo #0.3 103/ulNormal0.0-0.7The [facility] Medical CenterCompaul oliver memorial hospital on above: Performed By: #### ACET, SALYC #### [facility] [address] [place] [address] Dr. Ibis Rojasosinophils/100 WBC (Bld)4.2 %Normal0.9-7.0[facility] Comment on above:Performed By: #### ACET, SALYC #### [facility] [address] [place] [address] Dr. Ibis Rojasrythrocyte distribution width (RBC) [Ratio]13.2 %Ccukru09.0-15.0 [facility] HospitalComment on above:Performed By: #### ACET, SALYC #### [facility] [address] [place] [address] Dr. Ibis JimenezHematocrit (Bld) [Volume fraction]36.5 %Heekov43.0-48.0The [facility] Medical CenterComment on above:Performed By: #### ACET, SALYC #### [facility] [address] [place] [address] Dr. Ibis JimenezHemoglobin (Bld) [Mass/Vol]11.7 g/dLCritically low12.0-16.0The [facility] Medical CenterComment on above:Performed By: #### ACET, SALYC #### [facility] [address] [place] [address] Dr. Ibis Soto #0.05 10e3/ulCritically high0.00-0.03The [facility] Comment on above:Performed By: #### ACET, SALYC #### [facility] [address] [place] [address] Dr. Ibis Soto %0.8 %Critically high0.0-0.5The [facility] Medical CenterComment on above:Performed By: #### ACET, SALYC #### [facility] [address] [place] [address] Dr. Ibis Monsalve #1.7 103/ulNormal1.2-3.8The [facility] Medical CenterComment on above:Performed By: #### ACET, SALYC #### [facility] [address] [place] [address] Dr. Ibis Brennerhocytes/100 WBC (Bld)26.9 %Fcpvjk08.5-60.0The [facility] Medical CenterComment on above:Performed By: #### ACET, SALYC #### [facility] [address] [place] [address] Dr. Ibis NewtonUAL DIFF REQNONormalThe [facility] Medical CenterComment on above: Performed By: #### ACET, SALYC #### [facility] [address] [place] [address] Dr. Ibis Irby (RBC) [Entitic mass]28.7 zfCvfprg49.7-34.0The [facility] Medical CenterComment on above:Performed By: #### ACET, SALYC #### [facility] [address] [place] [address] Dr. Ibis Frank (RBC) [Mass/Vol]32.1 g/fFAzjxho14.9-35.2The [facility] CenterComment on above:Performed By: #### ACET, SALYC #### [facility] [address] [place] [address] Dr. Ibis Frank (RBC) [Entitic vol]89.7 oIDbzngq19.0-99.0The [facility] Medical CenterComment on above:Performed By: #### ACET, SALYC #### [facility] [address] [place] [address] Dr. Ibis Magallanes #0.6 103/ulNormal0.3-0.8The [facility] Medical CenterComment on above:Performed By: #### ACET, SALYC #### [facility] [address] [place] [address] Dr. Ibis Barbaocytes/100 WBC (Bld)8.9 %Normal1.7-12.0The [facility] Comment on above:Performed By: #### ACET, SALYC #### [facility] [address] [place] [address] Dr. Ibis Schultz #3.8 103/ulNormal1.4-6.5The [facility] Medical CenterComment on above:Performed By: #### ACET, SALYC #### [facility] [address] [place] [address] Dr. Ibis Hiutrophils/100 WBC (Bld)58.7 %Bdmxia86.0-75.0The [facility] [facility]itan Medical CenterComment on above:Performed By: #### ACET, SALYC #### [facility] [address] [place] [address] Dr. Ibis Faye mean volume (Bld) [Entitic vol]9.3 fLCritically low 9.5-13.5The [facility] CenterComment on above:Performed By: #### ACET, SALYC #### [facility] [address] [place] [address] Dr. Ibis JimenezPLT188 103/cdNjltcv561-681[facility] on above: Performed By: #### ACET, SALYC #### [facility] [address] [address] [address] Ibis ConleyC4.07 106/ulCritically low4.20-5.40The [facility] on above:Performed By: #### ACET, SALYC #### [facility] [address] [place] [address] Dr. Ibis JimenezWBC6.4 103/ulNormal4.0-11.0[facility] on above: Performed By: #### ACET, SALYC #### [facility] [address] [place] [address] Dr. Ibis Cristina SCREEN RAPID (URINE)on [id number]D [facility] HospitalCom[facility] on above:Performed By: #### BMP #### [facility] [address] [place] [address] Dr. Ibis ParkinsonPositiveAbnormalNEGATIVESelect [facility] on above: Performed By: #### BMP #### [facility] [address] [place] [address] Dr. Ibis MarquesPNegativeNormalNEGATIVESelect [facility] on above: Performed By: #### BMP #### [facility] [address] [place] [address] Dr. Ibis MartinZOPositiveAbnormalNEGATIVECleveland Clinic Marymount HospitalCompaul [facility] on above: Performed By: #### BMP #### [facility] [address] [place] [address] Dr. Ibis DanielCNegativeNormalNEGATIVECleveland Clinic [facility] HospitalCompa[facility] on above: Performed By: #### BMP #### [facility] [address] [place] [address] Dr. Ibis Yan-[facility]iddlet[facility] HospitalComment on above: Result Comment: AMP (Amphetamine): 500ng/mL, BAR (Barbituates): 200 ng/mL, BZO (Benzodiazepines): 150 ng/mL, BUP (Buprenorphine): 10 ng/mL, SEMAJ (Cocaine): 150 ng/mL, mAMP (Methamphetamine): 500 ng/mL, MTD (Methadone): 200 ng/mL, OPI (Opiates): 100 ng/mL, OXY (Oxycodone): 100 ng/mL, PCP (Phencyclidine): 25 ng/mL, PPX (Propoxyphene): 300 ng/mL, THC (Cannabinoids): 50 ng/mL, TCA (Trycyclic Antidepressants): 300 ng/mLPerformed By: #### BMP #### [facility] [address] [place] [address] Dr. Ibis JimenezDRUG CUT HEADERDRUG CLASS TEST SYSTEM CUT-OFF CONCENTRATIONS ARE FOLLOWS:NormalSelect [facility] on above:Performed By: #### BMP #### [facility] [address] [place] [address] Dr. Ibis JimenezmAMPNegativeNormalNEGATIVECleveland Clinic Marymount HospitalComment on above: Performed By: #### BMP #### [facility] [address] [place] [address] Dr. Ibis JimenezMTDNegativeNormalNEGATIVESelect [facility] on above: Performed By: #### BMP #### [facility] [address] [place] [address] Dr. Ibis SenINegativeNormalNEGATIVESelect [facility] on above: Performed By: #### BMP #### [facility] [address] [place] [address] Dr. Ibis JimenezOXYNegativeNormalNEGATIVES[facility] on above: Performed By: #### BMP #### [facility] [address] [place] [address] Dr. Ibis JimenezPCPNegativeNormalNEGATIVESelect [facility] on above: Performed By: #### BMP #### [facility] [address] [place] [address] Dr. Ibis JimenezPPXNegativeNormalNEGATIVECleveland Clinic Marymount HospitalComment on above: Performed By: #### BMP #### [facility] [address] [address] [address] Ibis JimenezTCAPositiveAbnormalNEGATIVECleveland Clinic [facility] HospitalCompaul [facility] on above: Performed By: #### BMP #### [facility] [address] [place] [address] Dr. Ibis JimenezTHCPositiveAbnormalNEGATIVECleveland Clinic Marymount HospitalComment on above: Performed By: #### BMP #### [facility] [address] [address] [address] Ibis Drake URINE PROFILEon [id number] Ql (U)NegativeNormal NEGATIVECleveland Clinic Marymount HospitalComment on above:Performed By: #### ACET, SALYC #### [facility] [address] [place] [address] Dr. Ibis JimenezClarity (U)CLEARNormalCLEARCleveland Clinic Marymount HospitalComment on above: Performed By: #### ACET, SALYC #### [facility] [address] [place] [address] Dr. Ibis JimenezColor (U)YELLOWNormalYELLOWCleveland Clinic Marymount HospitalComment on above: Performed By: #### ACET, SALYC #### [facility] [address] [place] [address] Dr. Ibis Chang micrscopic examination will be performed if indicated. NormalThe [facility]als [facility] Medical CenterComment on above:Performed By: #### ACET, SALYC #### [facility] [address] [place] [address] Dr. Ibis JimenezGlucose Ql (U)NegativeNormalNEGATIVECleveland Clinic Marymount HospitalComment on above:Performed By: #### ACET, SALYC #### [facility] [address] [place] [address] Dr. Ibis JimenezHemoglobin Ql (U)NegativeNormalNEGATIVEThe [facility] on above:Performed By: #### ACET, SALYC #### [facility] [address] [place] [address] Dr. Ibis JimenezKetones Ql (U)NegativeNormalNEGATIVECleveland Clinic Marymount HospitalComment on above:Performed By: #### ACET, SALYC #### [facility] [address] [place] [address] Dr. Ibis JimenezLEUKOCYTESNegativeNormalNEGATIVEThe [facility] CenterComment on above:Performed By: #### ACET, SALYC #### [facility] [address] [place] [address] Dr. Ibis JimenezNitrite Ql (U)NegativeNormalNEGATIVEThe [facility] CenterComment on above:Performed By: #### ACET, SALYC #### [facility] [address] [place] [address] Dr. Ibis JimenezpH (U)5.0 [pH]Normal5-9The [facility] on above: Performed By: #### ACET, SALYC #### [facility] [address] [place] [address] Dr. Ibis JimenezSPEC GRAVITY>=1.352Qzxkltzm3.005-<=1.025The [facility] Comment on above:Performed By: #### ACET, SALYC #### [facility] [address] [place] [address] Dr. Ibis Quintanilla PROTEINNegativeNormalNEGATIVE/ TRACEThe [facility] Comment on above:Performed By: #### ACET, SALYC #### [facility] [address] [place] [address] Dr. Ibis JimenezUR MICRO INDNOT INDICATEDNormalThe [facility] CenterComment on above:Performed By: #### ACET, SALYC #### [facility] [address] [place] [address] Dr. Ibis JimenezUrobilinogen Qn (U)0.2 {Dinorah'U}/dLNormal0.2 - 1.0The [facility] on above:Performed By: #### ACET, SALYC #### [facility] [address] [place] [address] Dr. Ibis JimenezPROF CHEM 8 (BAS METB)on 08-36-2453Dflvc gap [Moles/Vol]13.1 mmol/LNormalThe Alejandra HospitalComment on above:Performed By: #### MONO #### [facility] [address] [address] [address] Ibis JimenezCalcium [Mass/Vol]8.3 mg/dLCritically low8.5-10.1The [facility] CenterComment on above:Performed By: #### MONO #### [facility] [address] [address] [address] Ibis JimenezChloride [Moles/Vol]109 mmol/LCritically nleo14-130Yyn [facility] CenterComment on above:Performed By: #### MONO #### [facility] [address] [address] [address] Ibis JimenezCO2 [Moles/Vol]25.7 mmol/UQealwe11.0-32.0The [facility] Comment on above:Performed By: #### MONO #### [facility] [address] [place] [address] Dr. Ibis JimenezCreatinine [Mass/Vol]0.82 mg/dLNormal0.55-1.02The [facility] CenterComment on above:Performed By: #### MONO #### [facility] [address] [place] [address] Dr. Ibis RojasGFR-AF NORWEGIAN>60Normal>=60The [facility] CenterComment on above:Performed By: #### MONO #### [facility] [address] [address] [address] Ibis RojasGFR-NON AF NORWEGIAN>60Normal>=60The [facility] CenterComment on above:Performed By: #### MONO #### [facility] [address] [address] [address] Ibis JimenezGlucose [Mass/Vol]95 mg/ySFarmwe28-217Cqt [facility] Comment on above:Performed By: #### MONO #### [facility] [address] [address] [address] Ibis JimenezPotassium [Moles/Vol]3.8 mmol/LNormal3.5-5.1The [facility] Comment on above:Performed By: #### MONO #### [facility] [address] [address] [address] Ibis JimenezSodium [Moles/Vol]144 mmol/NWuqqys984-332Seh [facility] Comment on above:Performed By: #### MONO #### [facility] [address] [address] [address] Ibis JimenezUrea nitrogen [Mass/Vol]16.0 mg/dLNormal7.0-18.0[facility] HospitalComment on above:Performed By: #### MONO #### [facility] [address] [place] [address] Dr. Ibis JimenezUrea nitrogen/Creatinine [Mass ratio]19.5 mg/mgNoalThe [facility] CenterComment on above:Performed By: #### MONO #### [facility] [address] [place] [address] Dr. Ibis JimenezACETAMINOPHENon 71-51-4882Akmatqbvncepu [Mass/Vol]ug/mLCritically low10.0-30.0[facility] HospitalComment on above:Performed By: #### ACET, SALYC #### [facility] [address] [place] [address] Dr. Ibis JimenezDRUG SCREEN RAPID (URINE)on [id number]Z The [facility] CenterComment on above:Performed By: #### MONO #### [facility] [address] [place] [address] Dr. Ibis JimenezBARPositiveAbnormalNEGATIVECleveland Clinic Marymount HospitalComment on above: Performed By: #### MONO #### [facility] [address] [place] [address] Dr. Ibis JimenezBUPNegativeNormalNEGATIVEThe [facility] CenterComment on above: Performed By: #### MONO #### [facility] [address] [place] [address] Dr. Ibis JimenezBZOPositiveAbnormalNEGATIVEThe [facility] CenterComment on above: Performed By: #### MONO #### [facility] [address] [place] [address] Dr. Ibis DanielCNegativeNormalNEGATIVECleveland Clinic Marymount HospitalComment on above: Performed By: #### MONO #### [facility] [address] [place] [address] Dr. Ibis YanBucyrus Community HospitalComment on above: Result Comment: AMP (Amphetamine): 500ng/mL, BAR (Barbituates): 200 ng/mL, BZO (Benzodiazepines): 150 ng/mL, BUP (Buprenorphine): 10 ng/mL, SEMAJ (Cocaine): 150 ng/mL, mAMP (Methamphetamine): 500 ng/mL, MTD (Methadone): 200 ng/mL, OPI (Opiates): 100 ng/mL, OXY (Oxycodone): 100 ng/mL, PCP (Phencyclidine): 25 ng/mL, PPX (Propoxyphene): 300 ng/mL, THC (Cannabinoids): 50 ng/mL, TCA (Trycyclic Antidepressants): 300 ng/mLPerformed By: #### MONO #### [facility] [address] [place] [address] Dr. Ibis JimenezDRUG CUT HEADERDRUG CLASS TEST SYSTEM CUT-OFF CONCENTRATIONS ARE FOLLOWS:NormalThe [facility] CenterCompaul [facility] on above:Performed By: #### MONO #### [facility] [address] [place] [address] Dr. Ibis JimenezmAMPNegativeNormalNEGATIVECleveland Clinic Marymount HospitalCompaul [facility] on above: Performed By: #### MONO #### [facility] [address] [place] [address] Dr. Ibis JimenezMTDNegativeNormalNEGATIVECleveland Clinic [facility] HospitalCompaul [facility] on above: Performed By: #### MONO #### [facility] [address] [place] [address] Dr. Ibis SenIPositiveAbnormalNEGATIVECleveland Clinic [facility] HospitalCompaul [facility] on above: Performed By: #### MONO #### [facility] [address] [place] [address] Dr. Ibis JimenezOXYNegativeNormalNEGATIVEBarberton Citizens Hospitalment on above: Performed By: #### MONO #### [facility] [address] [place] [address] Dr. Ibis JimenezPCPNegativeNormalNEGATIVECleveland Clinic [facility] HospitalCompaul [facility] on above: Performed By: #### MONO #### [facility] [address] [place] [address] Dr. Ibis JimenezPPXNegativeNormalNEGATIVECleveland Clinic [facility] HospitalCompa[facility] on above: Performed By: #### MONO #### [facility] [address] [place] [address] Dr. Ibis JimenezTCANegativeNormalNEGATIVECleveland Clinic [facility] HospitalCompa[facility] on above: Performed By: #### MONO #### [facility] [address] [place] [address] Dr. Ibis JimenezTHCPositiveAbnormalNEGATIVESelect [facility] on above: Performed By: #### MONO #### [facility] [address] [place] [address] Dr. Ibis Drake URINE PROFILEon 80-29-0179Xflqdmevq Ql (U)NegativeNormal NEGATIVECleveland Clinic Marymount HospitalCompaul [facility] on above:Performed By: #### MONO #### [facility] [address] [place] [address] Dr. Ibis Sage (U)CLEARNormalCLEARCleveland Clinic Marymount HospitalCompaul [facility] on above: Performed By: #### MONO #### [facility] [address] [place] [address] Dr. Ibis Rivera (U)YELLOWNormalYELLOWCleveland Clinic Marymount HospitalCompaul [facility] on above: Performed By: #### MONO #### [facility] [address] [place] [address] Dr. Ibis Chang micrscopic examination will be performed if indicated. NormalCleveland Clinic Marymount HospitalCompaul [facility] memorial hospital on above:Performed By: #### MONO #### [facility] [address] [place] [address] Dr. Ibis Kerrose Ql (U)NegativeNormalNEGATIVECleveland Clinic Marymount HospitalCompaul [facility] on above:Performed By: #### MONO #### [facility] [address] [place] [address] Dr. Ibis JimenezHemoglobin Ql (U)TRACE-INTACTAbnormalNEGATIVECleveland Clinic Marymount HospitalComment on above:Performed By: #### MONO #### [facility] [address] [place] [address] Dr. Ibis JimenezKetones Ql (U)NegativeNormalNEGATIVESelect Medical [facility] HospitalComment on above:Performed By: #### MONO #### [facility] [address] [place] [address] Dr. Ibis JimenezLEUKOCYTESNegativeNormalNEGATIVECleveland Clinic Marymount HospitalCompaul [facility] on above:Performed By: #### MONO #### [facility] [address] [place] [address] Dr. Ibis JimenezNitrite Ql (U)NegativeNormalNEGATIVECleveland Clinic Marymount HospitalComment on above:Performed By: #### MONO #### [facility] [address] [place] [address] Dr. Ibis JimenezpH (U)6.0 [pH]Normal5-9[facility] HospitalCompaul [facility] on above: Performed By: #### MONO #### [facility] [address] [place] [address] Dr. Ibis JimenezProtein (U) [Mass/Vol]30 mg/dLAbnormalNEGATIVE/ TRACEThe [facility] CenterComment on above:Performed By: #### MONO #### [facility] [address] [place] [address] Dr. Ibis JimenezSPEC GRAVITY1.252Jqslqo1.005-<=1.025The [facility] CenterCompaul [facility] on above:Performed By: #### MONO #### [facility] [address] [place] [address] Dr. Ibis Curtis MICRO INDINDICATEDNormalThe [facility] CenterComment on above: Performed By: #### MONO #### [facility] [address] [place] [address] Dr. Ibis JimenezUrobilinogen Qn (U)0.2 {Dinorah'U}/dLNormal0.2 - 1.0The [facility] CenterComment on above:Performed By: #### MONO #### [facility] [address] [place] [address] Dr. Ibis McdanielANOL (BLD ALC)on 46-29-3903INC NOTENOTE: 80 mg/dl is the legal limit for a blood alcohol levelNoPremier Health Atrium Medical CenterComment on above: Performed By: #### AMM #### [facility] [address] [place] [address] Dr. Ibis Mcdanielanol [Mass/Vol]mg/dLNoPremier Health Atrium Medical CenterComment on above:Performed By: #### AMM #### [facility] [address] [place] [address] Dr. Ibis JimenezPOINT OF CARE GLUCOSEon 77-03-9346Mtudhrb [Mass/Vol]88 mg/dL Hanbxh87-894Hzd [facility] CenterComment on above:Performed By: #### CVDTBH #### [facility] [address] [place] [address] Dr. Ibis JimenezPREGNANCY URon [id number], QUALNegativeNormalNEGATIVEThe [facility] CenterComment on above:Performed By: #### MONO #### [facility] [address] [place] [address] Dr. Ibis JimenezPROF CHEM 8 (BAS METB)on 47-77-2470Pzapc gap [Moles/Vol]12.6 mmol/LNormalThe [facility] CenterComment on above:Performed By: #### AMM #### [facility] [address] [place] [address] Dr. Ibis JimenezCalcium [Mass/Vol]8.4 mg/dLCritically low8.5-10.1The [facility] CenterComment on above:Performed By: #### AMM #### [facility] [address] [place] [address] Dr. Ibis JimenezChloride [Moles/Vol]107 mmol/NCzxxvn89-946Mgk [facility] Comment on above:Performed By: #### AMM #### [facility] [address] [address] [address] Ibis JimenezCO2 [Moles/Vol]22.5 mmol/MSwcgmb84.0-32.0The [facility] Comment on above:Performed By: #### AMM #### [facility] [address] [address] [address] Ibis JimenezCreatinine [Mass/Vol]0.82 mg/dLNormal0.55-1.02The [facility] CenterComment on above:Performed By: #### AMM #### [facility] [address] [address] [address] Ibis RojasGFR-AF NORWEGIAN>60Normal>=60The [facility] CenterComment on above:Performed By: #### AMM #### [facility] [address] [place] [address] Dr. Ibis RojasGFR-NON AF NORWEGIAN>60Normal>=60The [facility] CenterComment on above:Performed By: #### AMM #### [facility] [address] [address] [address] Ibis JimenezGlucose [Mass/Vol]87 mg/zOPxvtzo84-710HbpCleveland Clinic [facility] Comment on above:Performed By: #### AMM #### [facility] [address] [address] [address] Ibis JimenezPotassium [Moles/Vol]4.1 mmol/LNormal3.5-5.1The [facility] Comment on above:Performed By: #### AMM #### [facility] [address] [address] [address] Ibis JimenezSodium [Moles/Vol]138 mmol/PSsxsch920-579Tno [facility] Comment on above:Performed By: #### AMM #### [facility] [address] [address] [address] Ibis JimenezUrea nitrogen [Mass/Vol]22.0 mg/dLCritically high7.0-18.0The [facility] CenterComment on above:Performed By: #### AMM #### [facility] [address] [address] [address] Ibis Lama nitrogen/Creatinine [Mass ratio]26.8 mg/mgNoPremier Health Atrium Medical CenterComment on above:Performed By: #### AMM #### [facility] [address] [place] [address] Dr. Ibis JimenezSALICYLATEon 47-95-9574GQTMEUITJT<2.8Normal<=19.9The [facility] CenterComment on above:Performed By: #### ACET, SALYC #### [facility] [address] [place] [address] Dr. Ibis Morris MICROSCOPIC ONLYon 88-01-8142YRINUKPBEMHB SEENNormalNONE SEENCleveland Clinic Marymount HospitalCompaul [facility] on above:Performed By: #### MONO #### [facility] [address] [place] [address] Dr. Ibis JimenezBactanthony identified Cx Nom (U)NOT INDICATEDNoPremier Health Atrium Medical CenterComment on above:Performed By: #### MONO #### [facility] [address] [place] [address] Dr. Ibis JimenezCASTSEENAbnormalNONE SEENSelect Medical [facility] on above: Performed By: #### MONO #### [facility] [address] [place] [address] Dr. Ibis JimenezCrystals LM Nom (Urine sed)NONE SEENNormalNONE SEENCleveland Clinic Marymount HospitalCompaul [facility] on above:Performed By: #### MONO #### [facility] [address] [place] [address] Dr. Baumann ChangEpithelial cells LM Ql (Urine sed)MODERATEAbnormalNONE SEEN /RARE The [facility] CenterCompaul [facility] on above:Performed By: #### MONO #### [facility] [address] [place] [address] Dr. Ibis GargALINE CASTFEWACMC Healthcare System GlenbeighComment on above: Performed By: #### MONO #### [facility] [address] [place] [address] Dr. Ibis McculloughUSRM SEENNormalNONE SEENCleveland Clinic Marymount HospitalComment on above:Performed By: #### MONO #### [facility] [address] [place] [address] Dr. Ibis JimenezOuhuuQPA1-9Isoajgir1-6Oib [facility] CenterComment on above:Performed By: #### MONO #### [facility] [address] [place] [address] Dr. Ibis JimenezWBCRM SEENNormalNONE SEENCleveland Clinic Marymount HospitalComment on above: Performed By: #### MONO #### [facility] [address] [place] [address] Dr. Ibis Alexis AUTO DIFFon [id number] #0.0 103/ulNormal0.0-0.1The [facility] CenterComment on above:Performed By: #### CVDTBH #### [facility] [address] [place] [address] Dr. Ibis JimenezBasophils/100 WBC (Bld)0.3 %Normal0.2-2.0The [facility] on above:Performed By: #### CVDTBH #### [facility] [address] [place] [address] Dr. Ibis Acevedo #0.0 103/ulNormal0.0-0.7The [facility] CenterComment on above: Performed By: #### CVDTBH #### [facility] [address] [place] [address] Dr. Ibis Rojasosinophils/100 WBC (Bld)0.1 %Critically low0.9-7.0The [facility] CenterComment on above:Performed By: #### CVDTBH #### [facility] [address] [place] [address] Dr. Ibis Rojasrythrocyte distribution width (RBC) [Ratio]13.2 %Uoadxv25.0-15.0 The [facility] CenterComment on above:Performed By: #### CVDTBH #### [facility] [address] [place] [address] Dr. Ibis JimenezHematocrit (Bld) [Volume fraction]38.5 %Udenoa06.0-48.0The [facility] CenterComment on above:Performed By: #### CVDTBH #### [facility] [address] [place] [address] Dr. Ibis JimenezHemoglobin (Bld) [Mass/Vol]12.4 g/hMBvdbwy27.0-16.0The [facility] CenterComment on above:Performed By: #### CVDTBH #### [facility] [address] [place] [address] Dr. Ibis Soto #0.20 10e3/ulCritically high0.00-0.03The [facility] Comment on above:Performed By: #### CVDTBH #### [facility] [address] [place] [address] Dr. Ibis Soto %1.8 %Critically high0.0-0.5The [facility] CenterComment on above:Performed By: #### CVDTBH #### [facility] [address] [place] [address] Dr. Ibis Monsalve #0.5 103/ulCritically low1.2-3.8The [facility] Comment on above:Performed By: #### CVDTBH #### [facility] [address] [place] [address] Dr. Ibis Vuongmphocytes/100 WBC (Bld)4.6 %Critically low20.5-60.0C[facility] Clinic Marymount HospitalComment on above:Performed By: #### CVDTBH #### [facility] [address] [place] [address] Dr. Ibis JimenezMANUAL DIFF REQNONormalThe [facility] CenterComment on above: Performed By: #### CVDTBH #### [facility] [address] [place] [address] Dr. Ibis Irby (RBC) [Entitic mass]28.2 yyVtuvql64.7-34.0The [facility] CenterComment on above:Performed By: #### CVDTBH #### [facility] [address] [place] [address] Dr. Ibis FrankHC (RBC) [Mass/Vol]32.2 g/wBEnrsad44.9-35.2The [facility] CenterComment on above:Performed By: #### CVDTBH #### [facility] [address] [place] [address] Dr. Ibis Frank (RBC) [Entitic vol]87.5 qQHflksr53.0-99.0The [facility] HospitalComment on above:Performed By: #### CVDTBH #### [facility] [address] [place] [address] Dr. Ibis Magallanes #0.1 103/ulCritically low0.3-0.8The [facility] CenterComment on above:Performed By: #### CVDTBH #### [facility] [address] [place] [address] Dr. Ibis Barbaocytes/100 WBC (Bld)1.3 %Critically low1.7-12.0The [facility] CenterComment on above:Performed By: #### CVDTBH #### [facility] [address] [place] [address] Dr. Ibis Schultz #10.1 103/ulCritically high1.4-6.5The [facility] Comment on above:Performed By: #### CVDTBH #### [facility] [address] [place] [address] Dr. Ibis Hiutrophils/100 WBC (Bld)91.9 %Critically high43.0-75.0The [facility] CenterComment on above:Performed By: #### CVDTBH #### [facility] [address] [place] [address] Dr. Ibis Olsenlet mean volume (Bld) [Entitic vol]9.1 fLCritically low 9.5-13.5The [facility] CenterComment on above:Performed By: #### CVDTBH #### [facility] [address] [place] [address] Dr. Ibis EricksonT240 103/ohThaayl132-532Ojp [facility] CenterComment on above: Performed By: #### CVDTBH #### [facility] [address] [place] [address] Dr. Ibis JimenezRBC4.40 106/ulNormal4.20-5.40The [facility] CenterComment on above:Performed By: #### CVDTBH #### [facility] [address] [place] [address] Dr. Ibis JimenezWBC11.0 103/ulNormal4.0-11.0The [facility] CenterComment on above:Performed By: #### CVDTBH #### [facility] [address] [place] [address] Dr. Ibis Charles 14(COMP METB)on 17-51-8389Yfqgazr [Mass/Vol]3.3 g/dL Critically low3.4-5.0The [facility] CenterComment on above:Performed By: #### BMP #### [facility] [address] [place] [address] Dr. Ibis JimenezAlbumin/Globulin [Mass ratio]0.9 {ratio}NormalThe [facility] CenterComment on above:Performed By: #### BMP #### [facility] [address] [place] [address] Dr. Ibis Ramos [Catalytic activity/Vol]63 U/IPijasz85-942Qac [facility] CenterComment on above:Performed By: #### BMP #### [facility] [address] [place] [address] Dr. Ibis Underwood [Catalytic activity/Vol]32 U/YJlbuir26-88Snb [facility] CenterComment on above:Performed By: #### BMP #### [facility] [address] [place] [address] Dr. Iibs Bal gap [Moles/Vol]12.9 mmol/LNormalThe [facility] on above:Performed By: #### BMP #### [facility] [address] [place] [address] Dr. Ibis Paris [Catalytic activity/Vol]14 U/LCritically vbo14-65Dzs [facility] CenterComment on above:Performed By: #### BMP #### [facility] [address] [place] [address] Dr. Ibis JimenezBilirubin [Mass/Vol]0.2 mg/dLNormal0.2-1.0[facility] Comment on above:Performed By: #### BMP #### [facility] [address] [place] [address] Dr. Ibis JimenezCalcium [Mass/Vol]8.5 mg/dLNormal8.5-10.1The [facility] Comment on above:Performed By: #### BMP #### [facility] [address] [place] [address] Dr. Ibis JimenezChloride [Moles/Vol]106 mmol/YHhjdnu06-242SmuCleveland Clinic Marymount Hospital Comment on above:Performed By: #### BMP #### [facility] [address] [place] [address] Dr. Ibis JimenezCO2 [Moles/Vol]26.6 mmol/SIdntwz34.0-32.0The [facility] Comment on above:Performed By: #### BMP #### [facility] [address] [place] [address] Dr. Ibis JimenezCreatinine [Mass/Vol]0.89 mg/dLNormal0.55-1.02The [facility] CenterComment on above:Performed By: #### BMP #### [facility] [address] [place] [address] Dr. Ibis RojasGFR-AF NORWEGIAN>60Normal>=60The [facility] CenterComment on above:Performed By: #### BMP #### [facility] [address] [place] [address] Dr. Ibis RojasGFR-NON AF NORWEGIAN>60Normal>=60The [facility] CenterComment on above:Performed By: #### BMP #### [facility] [address] [place] [address] Dr. Ibis JimenezGlobulin (S) [Mass/Vol]3.6 g/dLNormalThe Seth HospitalComment on above:Performed By: #### BMP #### [facility] [address] [address] [address] Ibis JimenezGlucose [Mass/Vol]134 mg/dLCritically ihvp00-514AfdCleveland Clinic Marymount HospitalComment on above:Performed By: #### BMP #### [facility] [address] [address] [address] Ibis JimenezPotassium [Moles/Vol]4.5 mmol/LNormal3.5-5.1[facility] Comment on above:Performed By: #### BMP #### [facility] [address] [address] [address] Ibis JimenezProtein [Mass/Vol]6.9 g/dLNormal6.4-8.2[facility] Comment on above:Performed By: #### BMP #### [facility] [address] [address] [address] Ibis JimenezSodium [Moles/Vol]141 mmol/JVnogfw209-509PtyCleveland Clinic Marymount Hospital Comment on above:Performed By: #### BMP #### [facility] [address] [address] [address] Ibis JimenezUrea nitrogen [Mass/Vol]15.0 mg/dLNormal7.0-18.0[facility] Mary[facility] HospitalComment on above:Performed By: #### BMP #### [facility] [address] [address] [address] Ibis JimenezUrea nitrogen/Creatinine [Mass ratio]16.9 mg/mgNormalThRegency Hospital CompanyComment on above:Performed By: #### BMP #### [facility] [address] [address] [address] Ibis JimenezCT HEAD WO CONon [id number] HEAD WO CONEXAMINATION: CT HEAD WO CON, [...] Electronically authenticated by: NICHOLAS MARCUS Date: 2022-05-23 19:25NoPremier Health Atrium Medical CenterCT LSPINE WO CONon [id number] LSPINE WO CONCT CERVICAL SPINE WITHOUT CONTRAST. [...] with vacuum phenomenon. Electronically authenticated by: SINDY [facility] Date: 2022-05-23 19:41NoPremier Health Atrium Medical CenterCT HEAD WO CONon [id number] HEAD WO CONStudy: CT HEAD WO CON [...] Electronically authenticated by: ROBIN IRBY Date: 2022-03-31 22:40NormKettering Health – Soin Medical CenterCovid-19 PCR (CVDTBH)on 10-86-0490MVHE-CoV-2 (COVID-19) RNA SAURABH+probe Ql (Unsp spec)Not detectedNormalNOT DETECTEDThe [facility] Comment on above:Result Comment: When diagnostic testing [...] for this test is supported by the [employer] of Health and Human Service's declaration that [...] longer be used).Performed By: #### CVDTBH #### [facility] [address] [place] [address] [id number] [address] Ibis Drake URINE PROFILEon 56-04-9921Dmsawezoq Ql (U)NegativeNormal NEGATIVEThe [facility] CenterComment on above:Performed By: #### ACET, SALYC #### [facility] [address] [place] [address] Dr. Ibis Pratherarity (U)CLEARNormalCLEARCleveland Clinic Marymount HospitalComment on above: Performed By: #### ACET, SALYC #### [facility] [address] [place] [address] Dr. Ibis Rivera (U)YELLOWNormalYELLOWCleveland Clinic Marymount HospitalComment on above: Performed By: #### ACET, SALYC #### [facility] [address] [address] [address] Ibis Chang micrscopic examination will be performed if indicated. NormalThe [facility] CenterComment on above:Performed By: #### ACET, SALYC #### [facility] [address] [place] [address] Dr. Ibis JimenezGlucose Ql (U)NegativeNormalNEGATIVECleveland Clinic Marymount HospitalComment on above:Performed By: #### ACET, SALYC #### [facility] [address] [place] [address] Dr. Ibis JimenezHemoglobin Ql (U)SMALLAbnormalNEGATIVEThe [facility] on above:Performed By: #### ACET, SALYC #### [facility] [address] [place] [address] Dr. Ibis JimenezKetones Ql (U)NegativeNormalNEGATIVECleveland Clinic Marymount HospitalComment on above:Performed By: #### ACET, SALYC #### [facility] [address] [place] [address] Dr. Ibis JimenezLEUKOCYTESNegativeNormalNEGATIVECleveland Clinic Marymount HospitalCompaul [facility]liver memorial hospital on above:Performed By: #### ACET, SALYC #### [facility] [address] [place] [address] Dr. Ibis JimenezNitrite Ql (U)NegativeNormalNEGATIVECleveland Clinic Marymount HospitalComment on above:Performed By: #### ACET, SALYC #### [facility] [address] [place] [address] Dr. Ibis JimenezpH (U)5.5 [pH]Normal5-9The [facility] HospitalComment on above: Performed By: #### ACET, SALYC #### [facility] [address] [place] [address] Dr. Ibis JimenezSPEC GRAVITY>=1.279Dmdtzmxh1.005-<=1.025The [facility] Comment on above:Performed By: #### ACET, SALYC #### [facility] [address] [place] [address] Dr. Ibis Quintanilla PROTEINNegativeNormalNEGATIVE/ TRACEThe [facility] Comment on above:Performed By: #### ACET, SALYC #### [facility] [address] [place] [address] Dr. Ibis Curtis MICRO INDINDICATEDACMC Healthcare System GlenbeighComment on above: Performed By: #### ACET, SALYC #### [facility] [address] [place] [address] Dr. Ibis Lorenzbilinogen Qn (U)0.2 {Dinorah'U}/dLNormal0.2 - 1.0[facility] HospitalComment on above:Performed By: #### ACET, SALYC #### [facility] [address] [place] [address] Dr. Ibis Garcia AND B AGon 21-23-1009GTMHUTZLEDVEHCleveland Clinic Marymount Hospital on above:Result Comment: Negative for Flu A protein angiten. Infection due to Flu A cannot be ruled out. FluA angiten in the sample may be below the detection limit of the test.Performed By: #### AMM #### [facility] [address] [place] [address] Dr. Ibis RuizUBNEGHSEE Park[facility] HealthCompaul [facility] hospital on above: Result Comment: Negative for Flu B protein antigen. Infection due to Flu B cannot be ruled out. FluB antigen in the sample may be below the detection limit of the test.Performed By: #### AMM #### [facility] [address] [place] [address] Dr. Ibis Garcia AGNegativeNormalNEGATIVE SEE COMMENTThe Alejandra HospitalComment on above:Performed By: #### AMM #### [facility] [address] [address] [address] Ibis Lagos AGNegativeNormalNEGATIVE SEE COMMENTThe [facility] CenterCompaul oliver memorial hospital on above:Performed By: #### AMM #### [facility] [address] [address] [address] Ibis JimenezLACTATE/LACTIC ACIDon 05-74-2573Wnydqxk [Moles/Vol]1.9 mmol/L Normal0.4-1.9The The Jewish Hospitalment on above:Performed By: #### LACT #### [facility] [address] [place] [address] Dr. Ibis Morris MICROSCOPIC ONLYon [id number]nTKEM SEEN The [facility] CenterCompaul oliver memorial hospital on above:Performed By: #### ACET, SALYC #### [facility] [address] [place] [address] Dr. Ibis Pettit identified Cx Nom (U)NOT INDICATEDNoPremier Health Atrium Medical CenterCompaul [facility] memorial hospital on above:Performed By: #### ACET, SALYC #### [facility] [address] [place] [address] Dr. Ibis Baron SEENNormalNONE SEENSelect Medical [facility] on above:Performed By: #### ACET, SALYC #### [facility] [address] [place] [address] Dr. Ibis Oviedo LM Nom (Urine sed)NONE SEENNormalNONE SEENSelect Medical [facility]Health Rehabilitation Hospital on above:Performed By: #### ACET, SALYC #### [facility] [address] [place] [address] Dr. Ibis Davisthelial cells LM Ql (Urine sed)RARENormalNONE SEEN /RAREThe [facility] on above:Performed By: #### ACET, SALYC #### [facility] [address] [place] [address] Dr. Ibis GallegosCOUSTRACEAbnormalNONE SEENThe Seth HospitalComment on above:Performed By: #### ACET, SALYC #### [facility] [address] [place] [address] Dr. Ibis BurrEyfpfJVP6-5Eknmnp4-9Mck The Jewish Hospitalment on above:Performed By: #### ACET, SALYC #### [facility] [address] [place] [address] Dr. Ibis JimenezWBCNONE SEENNormalNONE SEENThe [facility] CenterComment on above: Performed By: #### ACET, SALYC #### [facility] [address] [place] [address] Dr. Ibis JimenezAMMONIAon 71-40-2414Xicrlwa (P) [Moles/Vol]31 umol/VTrqndj72-83 [facility] on above:Performed By: #### AMM #### [facility] [address] [place] [address] Dr. Ibis Alexis AUTO DIFFon 88-03-5177YHTG #0.0 103/ulNormal0.0-0.1The [facility] CenterComment on above:Performed By: #### AMM #### [facility] [address] [place] [address] Dr. Ibis JimenezBasophils/100 WBC (Bld)0.4 %Normal0.2-2.0[facility] Comment on above:Performed By: #### AMM #### [facility] [address] [place] [address] Dr. Ibis Acevedo #0.5 103/ulNormal0.0-0.7The [facility] on above: Performed By: #### AMM #### [facility] [address] [place] [address] Dr. Ibis Rojasosinophils/100 WBC (Bld)6.4 %Normal0.9-7.0The [facility] Comment on above:Performed By: #### AMM #### [facility] [address] [place] [address] Dr. Ibis Rojasrythrocyte distribution width (RBC) [Ratio]12.8 %Empybk17.0-15.0 The [facility] CenterComment on above:Performed By: #### AMM #### [facility] [address] [place] [address] Dr. Ibis JimenezHematocrit (Bld) [Volume fraction]36.6 %Nckidf27.0-48.0The [facility] CenterComment on above:Performed By: #### AMM #### [facility] [address] [place] [address] Dr. Ibis JimenezHemoglobin (Bld) [Mass/Vol]12.5 g/iSMaubzd21.0-16.0The [facility] CenterComment on above:Performed By: #### AMM #### [facility] [address] [place] [address] Dr. Ibis Soto #0.02 10e3/ulNormal0.00-0.03The [facility] CenterComment on above:Performed By: #### AMM #### [facility] [address] [place] [address] Dr. Ibis Soto %0.3 %Normal0.0-0.5The [facility] CenterComment on above: Performed By: #### AMM #### [facility] [address] [place] [address] Dr. Ibis Monsalve #2.0 103/ulNormal1.2-3.8The [facility] CenterComment on above:Performed By: #### AMM #### [facility] [address] [place] [address] Dr. Ibis Brennerhocytes/100 WBC (Bld)25.0 %Xecmms77.5-60.0The [facility] CenterComment on above:Performed By: #### AMM #### [facility] [address] [place] [address] Dr. Ibis NewtonUAL DIFF REQNONormalThe [facility] CenterComment on above: Performed By: #### AMM #### [facility] [address] [place] [address] Dr. Ibis Irby (RBC) [Entitic mass]29.5 doCazopr17.7-34.0The [facility] CenterComment on above:Performed By: #### AMM #### [facility] [address] [place] [address] Dr. Ibis Frank (RBC) [Mass/Vol]34.2 g/vDOonosr34.9-35.2The [facility] CenterComment on above:Performed By: #### AMM #### [facility] [address] [place] [address] Dr. Ibis FrankV (RBC) [Entitic vol]86.3 aXJtomrv61.0-99.0The [facility] CenterComment on above:Performed By: #### AMM #### [facility] [address] [place] [address] Dr. Ibis Magallanes #0.4 103/ulNormal0.3-0.8The [facility] CenterComment on above:Performed By: #### AMM #### [facility] [address] [place] [address] Dr. Ibis Barbaocytes/100 WBC (Bld)5.6 %Normal1.7-12.0The [facility] Comment on above:Performed By: #### AMM #### [facility] [address] [place] [address] Dr. Ibis Schultz #4.9 103/ulNormal1.4-6.5The [facility] CenterComment on above:Performed By: #### AMM #### [facility] [address] [place] [address] Dr. Ibis Hiutrophils/100 WBC (Bld)62.3 %Nilhro69.0-75.0The [facility] CenterComment on above:Performed By: #### AMM #### [facility] [address] [place] [address] Dr. Ibis Olsenlet mean volume (Bld) [Entitic vol]9.5 fLNormal9.5-13.5The [facility] HospitalComment on above:Performed By: #### AMM #### [facility] [address] [place] [address] Dr. Ibis JimenezPLT246 103/kzIfwcxb765-351Vdu [facility] CenterComment on above: Performed By: #### AMM #### [facility] [address] [place] [address] Dr. Ibis JimenezRBC4.24 106/ulNormal4.20-5.40The [facility] CenterComment on above:Performed By: #### AMM #### [facility] [address] [place] [address] Dr. Ibis JimenezWBC7.8 103/ulNormal4.0-11.0The [facility] CenterComment on above: Performed By: #### AMM #### [facility] [address] [place] [address] Dr. Ibis Barrios BLOODon [id number] examination of blood, cultureCulture Observations: NO GROWTH AT 5 DAYS.NormalThe [facility] CenterComment on above:Performed By: #### [id number] #### [facility] [address] [place] [address] Dr. Ibis JimenezMicroscopic examination of blood, cultureCulture Observations: NO GROWTH AT 5 DAYS.NormalThe [facility] CenterComment on above:Performed By: #### BMP #### [facility] [address] [place] [address] Dr. Ibis JimenezLACTATE/LACTIC ACIDon 07-27-3512Fiippkl [Moles/Vol]2.8 mmol/L Critically high0.4-1.9The [facility] CenterComment on above:Performed By: #### CVDTBH #### [facility] [address] [place] [address] Dr. Ibis Charles 14(COMP METB)on 97-27-1303Cgyfxln [Mass/Vol]3.4 g/dLNormal 3.4-5.0The [facility] CenterComment on above:Performed By: #### BMP #### [facility] [address] [place] [address] Dr. Ibis JimenezAlbumin/Globulin [Mass ratio]1.2 {ratio}NormalThe [facility] CenterComment on above:Performed By: #### BMP #### [facility] [address] [place] [address] Dr. Ibis EspinozaP [Catalytic activity/Vol]85 U/FCnengg06-709Zjk [facility] CenterComment on above:Performed By: #### BMP #### [facility] [address] [place] [address] Dr. Ibis EspinozaT [Catalytic activity/Vol]18 U/KFivzhh85-31Gpx [facility] CenterComment on above:Performed By: #### BMP #### [facility] [address] [place] [address] Dr. Ibis Santoson gap [Moles/Vol]13.2 mmol/LNormalThe [facility] Comment on above:Performed By: #### BMP #### [facility] [address] [place] [address] Dr. Ibis JimenezAST [Catalytic activity/Vol]11 U/LCritically zsd34-80Ghw [facility] CenterComment on above:Performed By: #### BMP #### [facility] [address] [place] [address] Dr. Ibis JimenezBilirubin [Mass/Vol]0.2 mg/dLNormal0.2-1.0The [facility] Comment on above:Performed By: #### BMP #### [facility] [address] [place] [address] Dr. Ibis JimenezCalcium [Mass/Vol]8.6 mg/dLNormal8.5-10.1The [facility] Comment on above:Performed By: #### BMP #### [facility] [address] [place] [address] Dr. Ibis JimenezChloride [Moles/Vol]105 mmol/GQejlqr30-802Mjn [facility] Comment on above:Performed By: #### BMP #### [facility] [address] [place] [address] Dr. Ibis JimenezCO2 [Moles/Vol]25.1 mmol/IFypwmh71.0-32.0The [facility] Comment on above:Performed By: #### BMP #### [facility] [address] [place] [address] Dr. Ibis JimenezCreatinine [Mass/Vol]0.80 mg/dLNormal0.55-1.02The [facility] CenterComment on above:Performed By: #### BMP #### [facility] [address] [address] [address] Ibis RojasGFR-AF NORWEGIAN>60Normal>=60The [facility] CenterComment on above:Performed By: #### BMP #### [facility] [address] [place] [address] Dr. Ibis RojasGFR-NON AF NORWEGIAN>60Normal>=60The [facility] CenterComment on above:Performed By: #### BMP #### [facility] [address] [place] [address] Dr. Ibis JimenezGlobulin (S) [Mass/Vol]2.9 g/dLNormalThe [facility] CenterComment on above:Performed By: #### BMP #### [facility] [address] [place] [address] Dr. Ibis JimenezGlucose [Mass/Vol]99 mg/vDZkiojg58-044EehCleveland Clinic Mary[facility] Hospital Comment on above:Performed By: #### BMP #### [facility] [address] [place] [address] Dr. Ibis JimenezPotassium [Moles/Vol]3.3 mmol/LCritically low3.5-5.1The [facility] CenterComment on above:Performed By: #### BMP #### [facility] [address] [place] [address] Dr. Ibis JimenezProtein [Mass/Vol]6.3 g/dLCritically low6.4-8.2The [facility] CenterComment on above:Performed By: #### BMP #### [facility] [address] [place] [address] Dr. Ibis JimenezSodium [Moles/Vol]140 mmol/KWcpsnm176-771CsrCleveland Clinic Marymount Hospital Comment on above:Performed By: #### BMP #### [facility] [address] [place] [address] Dr. Ibis Lama nitrogen [Mass/Vol]10.0 mg/dLNormal7.0-18.0[facility] Mary[facility] HospitalComment on above:Performed By: #### BMP #### [facility] [address] [place] [address] Dr. Ibis Lama nitrogen/Creatinine [Mass ratio]12.5 mg/mgNormalThe [facility] CenterComment on above:Performed By: #### BMP #### [facility] [address] [place] [address] Dr. Ibis Alexis AUTO DIFFon [id number] #0.0 103/ulNormal0.0-0.1The [facility] CenterComment on above:Performed By: #### AMM #### [facility] [address] [place] [address] Dr. Ibis JimenezBasophils/100 WBC (Bld)0.3 %Normal0.2-2.0[facility] Comment on above:Performed By: #### AMM #### [facility] [address] [place] [address] Dr. Ibis Acevedo #0.2 103/ulNormal0.0-0.7The [facility] CenterComment on above: Performed By: #### AMM #### [facility] [address] [place] [address] Dr. Ibis Rojasosinophils/100 WBC (Bld)2.7 %Normal0.9-7.0The [facility] Comment on above:Performed By: #### AMM #### [facility] [address] [place] [address] Dr. Ibis Rojasrythrocyte distribution width (RBC) [Ratio]13.2 %Yahiim55.0-15.0 [facility] HospitalComment on above:Performed By: #### AMM #### [facility] [address] [place] [address] Dr. Ibis JimenezHematocrit (Bld) [Volume fraction]35.7 %Critically low36.0-48.0 The [facility] CenterComment on above:Performed By: #### AMM #### [facility] [address] [address] [address] Ibis JimenezHemoglobin (Bld) [Mass/Vol]12.2 g/zDQoltea14.0-16.0The [facility] CenterComment on above:Performed By: #### AMM #### [facility] [address] [address] [address] Ibis JimenezIG #0.04 10e3/ulCritically high0.00-0.03The [facility] Comment on above:Performed By: #### AMM #### [facility] [address] [place] [address] Dr. Ibis Soto %0.5 %Normal0.0-0.5The [facility] CenterComment on above: Performed By: #### AMM #### [facility] [address] [place] [address] Dr. Ibis Monsalve #2.1 103/ulNormal1.2-3.8The [facility] CenterComment on above:Performed By: #### AMM #### [facility] [address] [place] [address] Dr. Ibis Vuongmphocytes/100 WBC (Bld)27.3 %Abdtdw26.5-60.0The [facility] CenterComment on above:Performed By: #### AMM #### [facility] [address] [address] [address] Ibis JimenezMANUAL DIFF REQNONormalThe [facility] CenterComment on above: Performed By: #### AMM #### [facility] [address] [address] [address] Ibis Irby (RBC) [Entitic mass]29.0 yuKahxby75.7-34.0The [facility] CenterComment on above:Performed By: #### AMM #### [facility] [address] [address] [address] Ibis FrankHC (RBC) [Mass/Vol]34.2 g/sGTtohmq86.9-35.2The [facility] CenterComment on above:Performed By: #### AMM #### [facility] [address] [place] [address] Dr. Ibis FrankV (RBC) [Entitic vol]84.8 qWOeyfbm87.0-99.0The [facility] CenterComment on above:Performed By: #### AMM #### [facility] [address] [place] [address] Dr. Ibis Magallanes #0.7 103/ulNormal0.3-0.8The [facility] CenterComment on above:Performed By: #### AMM #### [facility] [address] [place] [address] Dr. Ibis Barbaocytes/100 WBC (Bld)8.7 %Normal1.7-12.0The [facility] Comment on above:Performed By: #### AMM #### [facility] [address] [place] [address] Dr. Ibis Schultz #4.7 103/ulNormal1.4-6.5The [facility] CenterComment on above:Performed By: #### AMM #### [facility] [address] [place] [address] Dr. Ibis Hiutrophils/100 WBC (Bld)60.5 %Dkoaok32.0-75.0The [facility] CenterComment on above:Performed By: #### AMM #### [facility] [address] [place] [address] Dr. Ibis Olsenlet mean volume (Bld) [Entitic vol]9.6 fLNormal9.5-13.5The [facility] CenterComment on above:Performed By: #### AMM #### [facility] [address] [place] [address] Dr. Ibis JimenezPLT212 103/drPprgsv346-852Wno Alejandra HospitalComment on above: Performed By: #### AMM #### [facility] [address] [place], [place] [address] Dr. Ibis JimenezRBC4.21 106/ulNormal4.20-5.40The [facility] on above:Performed By: #### AMM #### [facility] [address] [place], [place] [address] Dr. Ibis JimenezWBC7.7 103/ulNormal4.0-11.0The [facility] on above: Performed By: #### AMM #### [facility] [address] [address] [address] Ibis JimenezCT ABD/PELV W CONon [id number] ABD/PELV W CONEXAM: CT ABD/PELV W CON [...] Electronically authenticated by: TONY DAHL Date: 2022-01-14 20:01[facility] URINE PROFILEon 34-80-2243Bsgapcghb Ql (U)NegativeNormal NEGATIVECleveland Clinic Marymount HospitalComment on above:Performed By: #### ACET, SALYC #### [facility] [address] [place] [address] Dr. Ibis JimenezClarity (U)CLEARNormalCLEARCleveland Clinic Marymount HospitalComment on above: Performed By: #### ACET, SALYC #### [facility] [address] [place] [address] Dr. Ibis JimenezColor (U)LT. YELLOWNormalYELLOWCleveland Clinic Marymount HospitalComment on above:Performed By: #### ACET, SALYC #### [facility] [address] [address] [address] Ibis Chang micrscopic examination will be performed if indicated. NormalCleveland Clinic Marymount HospitalComment on above:Performed By: #### ACET, SALYC #### [facility] [address] [address] [address] Ibis JimenezGlucose Ql (U)NegativeNormalNEGATIVECleveland Clinic Marymount HospitalComment on above:Performed By: #### ACET, SALYC #### [facility] [address] [address] [address] Ibis JimenezHemoglobin Ql (U)NegativeNormalNEGATIVECleveland Clinic Marymount Hospital Comment on above:Performed By: #### ACET, SALYC #### [facility] [address] [address] [address] Ibis JimenezKetones Ql (U)NegativeNormalNEGATIVECleveland Clinic Marymount HospitalComment on above:Performed By: #### ACET, SALYC #### [facility] [address] [address] [address] Ibis JimenezLEUKOCYTESTRACEAbnormalNEGATIVECleveland Clinic Marymount HospitalComment on above:Performed By: #### ACET, SALYC #### [facility] [address] [address] [address] Ibis Avalostraldo Ql (U)NegativeNormalNEGATIVEThe [facility] CenterComment on above:Performed By: #### ACET, SALYC #### [facility] [address] [address] [address] Ibis JimenezpH (U)5.5 [pH]Normal5-9The [facility] CenterComment on above: Performed By: #### ACET, SALYC #### [facility] [address] [address] [address] Ibis JimenezSPEC GRAVITY1.730Ufgawz5.005-<=1.025The [facility] CenterComment on above:Performed By: #### ACET, SALYC #### [facility] [address] [place] [address] Dr. Ibis Quintanilla PROTEINNegativeNormalNEGATIVE/ TRACEThe [facility] Comment on above:Performed By: #### ACET, SALYC #### [facility] [address] [address] [address] Ibis Curtis MICRO INDINDICATEDNormalThe [facility] CenterComment on above: Performed By: #### ACET, SALYC #### [facility] [address] [address] [address] Ibis JimenezUrobilinogen Qn (U)0.2 {Dinorah'U}/dLNormal0.2 - 1.0The [facility] CenterComment on above:Performed By: #### ACET, SALYC #### [facility] [address] [place] [address] Dr. Ibis JimenezPREGNANCY URon [id number], QUALNegativeNormalNEGATIVEThe [facility] CenterComment on above:Performed By: #### ACET, SALYC #### [facility] [address] [place] [address] Dr. Ibis JimenezPROF CHEM 8 (BAS METB)on 06-50-0270Tvexf gap [Moles/Vol]9.9 mmol/LNormalThe [facility] CenterComment on above:Performed By: #### BMP #### [facility] [address] [address] [address] Ibis JimenezCalcium [Mass/Vol]8.6 mg/dLNormal8.5-10.1The [facility] Comment on above:Performed By: #### BMP #### [facility] [address] [address] [address] Ibis JimenezChloride [Moles/Vol]105 mmol/CMwrghf89-720Ziu [facility] Comment on above:Performed By: #### BMP #### [facility] [address] [address] [address] Ibis JimenezCO2 [Moles/Vol]27.5 mmol/MDpxvyf89.0-32.0The [facility] Comment on above:Performed By: #### BMP #### [facility] [address] [place] [address] Dr. Ibis JimenezCreatinine [Mass/Vol]0.70 mg/dLNormal0.55-1.02The [facility] CenterComment on above:Performed By: #### BMP #### [facility] [address] [place] [address] Dr. Ibis RojasGFR-AF NORWEGIAN>60Normal>=60The [facility] CenterComment on above:Performed By: #### BMP #### [facility] [address] [address] [address] Ibis RojasGFR-NON AF NORWEGIAN>60Normal>=60The [facility] CenterComment on above:Performed By: #### BMP #### [facility] [address] [address] [address] Ibis JimenezGlucose [Mass/Vol]83 mg/bEKngpei95-674Noo [facility] Comment on above:Performed By: #### BMP #### [facility] [address] [place] [address] Dr. Ibis JimenezPotassium [Moles/Vol]4.4 mmol/LNormal3.5-5.1[facility] Comment on above:Performed By: #### BMP #### [facility] [address] [address] [address] Ibis Guzmanum [Moles/Vol]138 mmol/TIvbknf261-672Mkr [facility] Comment on above:Performed By: #### BMP #### [facility] [address] [address] [address] Ibis JimenezUrea nitrogen [Mass/Vol]13.0 mg/dLNormal7.0-18.0The [facility] CenterComment on above:Performed By: #### BMP #### [facility] [address] [address] [address] Ibis Lama nitrogen/Creatinine [Mass ratio]18.6 mg/mgNoalThe [facility] CenterComment on above:Performed By: #### BMP #### [facility] [address] [place] [address] Dr. Ibis Morris MICROSCOPIC ONLYon [id number] SEENNormalNONE SEENCleveland Clinic Marymount HospitalComment on above:Performed By: #### ACET, SALYC #### [facility] [address] [address] [address] Ibis Pettit identified Cx Nom (U)NOT INDICATEDNoPremier Health Atrium Medical CenterComment on above:Performed By: #### ACET, SALYC #### [facility] [address] [place] [address] Dr. Ibis Baron SEENNormalNONE SEENCleveland Clinic Marymount HospitalCompaul [facility] on above:Performed By: #### ACET, SALYC #### [facility] [address] [address] [address] Ibis Oviedo LM Nom (Urine sed)NONE SEENNormalNONE SEENCleveland Clinic Marymount HospitalCompaul [facility] on above:Performed By: #### ACET, SALYC #### [facility] [address] [address] [address] Baumann ChangEpithelial cells LM Ql (Urine sed)FEWAbnormalNONE SEEN /RAREThe [facility] CenterComment on above:Performed By: #### ACET, SALYC #### [facility] [address] [address] [address] Ibis GallegosCOUSRM SEENNormalNONE SEENThe [facility] CenterComment on above:Performed By: #### ACET, SALYC #### [facility] [address] [address] [address] Ibis JimenezRBCNONE SEENAbnormal0-2The [facility] CenterComment on above: Performed By: #### ACET, SALYC #### [facility] [address] [address] [address] Ibis HamiltonBCRM SEENNormalNONE SEENThe [facility] CenterComment on above: Performed By: #### ACET, SALYC #### [facility] [address] [place] [address] Dr. Ibis Alexis AUTO DIFFon [id number] #0.0 103/ulNormal0.0-0.1The [facility] CenterComment on above:Performed By: #### ACET, SALYC #### [facility] [address] [place] [address] Dr. Ibis Souzasophils/100 WBC (Bld)0.2 %Normal0.2-2.0The [facility] Comment on above:Performed By: #### ACET, SALYC #### [facility] [address] [place] [address] Dr. Ibis Acevedo #0.0 103/ulNormal0.0-0.7The The [facility] Hospitalment on above: Performed By: #### ACET, SALYC #### [facility] [address] [place] [address] Dr. Ibis Rojasosinophils/100 WBC (Bld)0.4 %Critically low0.9-7.0The The [facility] Hospitalment on above:Performed By: #### ACET, SALYC #### [facility] [address] [place] [address] Dr. Ibis Rojasrythrocyte distribution width (RBC) [Ratio]13.2 %Ajvyil43.0-15.0 The [facility] CenterComment on above:Performed By: #### ACET, SALYC #### [facility] [address] [place] [address] Dr. Ibis JimenezHematocrit (Bld) [Volume fraction]39.7 %Cvizxv62.0-48.0The [facility] CenterComment on above:Performed By: #### ACET, SALYC #### [facility] [address] [place] [address] Dr. Ibis JimenezHemoglobin (Bld) [Mass/Vol]13.4 g/pMNbhqzq03.0-16.0The The [facility] Hospitalment on above:Performed By: #### ACET, SALYC #### [facility] [address] [place] [address] Dr. Ibis Soto #0.06 10e3/ulCritically high0.00-0.03The [facility] Comment on above:Performed By: #### ACET, SALYC #### [facility] [address] [place] [address] Dr. Ibis Soto %0.5 %Normal0.0-0.5The [facility] CenterComment on above: Performed By: #### ACET, SALYC #### [facility] [address] [place] [address] Dr. Ibis Monsalve #2.6 103/ulNormal1.2-3.8The [facility] CenterComment on above:Performed By: #### ACET, SALYC #### [facility] [address] [place] [address] Dr. Ibis Brennerhocytes/100 WBC (Bld)23.8 %Wbywsk63.5-60.0The [facility] CenterComment on above:Performed By: #### ACET, SALYC #### [facility] [address] [place] [address] Dr. Ibis NewtonUAL DIFF REQNONormalThe [facility] CenterComment on above: Performed By: #### ACET, SALYC #### [facility] [address] [place] [address] Dr. Ibis Frank (RBC) [Entitic mass]28.8 alAqobvo38.7-34.0The [facility] CenterComment on above:Performed By: #### ACET, SALYC #### [facility] [address] [place] [address] Dr. Ibis Frank (RBC) [Mass/Vol]33.8 g/rGKkundn09.9-35.2The Seth HospitalComment on above:Performed By: #### ACET, SALYC #### [facility] [address] [place] [address] Dr. Ibis JimenezOKLAHOMA [facility] [place] ([place]BC) [Entitic vol]85.2 wLIaahoe70.0-99.0The [facility] CenterComment on above:Performed By: #### ACET, SALYC #### [facility] [address] [place] [address] Dr. Ibis Magallanes #0.8 103/ulNormal0.3-0.8The [facility] CenterComment on above:Performed By: #### ACET, SALYC #### [facility] [address] [place] [address] Dr. Ibis Barbaocytes/100 WBC (Bld)7.7 %Normal1.7-12.0[facility] Comment on above:Performed By: #### ACET, SALYC #### [facility] [address] [place] [address] Dr. Ibis Schultz #7.4 103/ulCritically high1.4-6.5The [facility] Comment on above:Performed By: #### ACET, SALYC #### [facility] [address] [place] [address] Dr. Ibis Hiutrophils/100 WBC (Bld)67.4 %Fnhceg76.0-75.0The [facility] Medical CenterComment on above:Performed By: #### ACET, SALYC #### [facility] [address] [place] [address] Dr. Ibis Olsenlet mean volume (Bld) [Entitic vol]9.8 fLNormal9.5-13.5The [facility] CenterComment on above:Performed By: #### ACET, SALYC #### [facility] [address] [place] [address] Dr. Ibis JimenezPLT261 103/iwNxhwsk941-906Xdq [facility] CenterComment on above: Performed By: #### ACET, SALYC #### [facility] [address] [place] [address] Dr. Ibis JimenezRBC4.66 106/ulNormal4.20-5.40The [facility] CenterComment on above:Performed By: #### ACET, SALYC #### [facility] [address] [place] [address] Dr. Ibis JimenezWBC10.9 103/ulNormal4.0-11.0The [facility] CenterComment on above:Performed By: #### ACET, SALYC #### [facility] [address] [place] [address] Dr. Ibis JimenezPROF CHEM 8 (BAS METB)on 50-64-9694Ckvkb gap [Moles/Vol]14.1 mmol/LNormalCleveland Clinic Marymount HospitalComment on above:Performed By: #### BMP #### [facility] [address] [place] [address] Dr. Ibis JimenezCalcium [Mass/Vol]8.5 mg/dLNormal8.5-10.1[facility] Comment on above:Performed By: #### BMP #### [facility] [address] [place] [address] Dr. Ibis JimenezChloride [Moles/Vol]103 mmol/FAmxtwk92-287ZrvCleveland Clinic Marymount Hospital Comment on above:Performed By: #### BMP #### [facility] [address] [place] [address] Dr. Ibis JimenezCO2 [Moles/Vol]22.5 mmol/TFcjhjy86.0-32.0The [facility] Comment on above:Performed By: #### BMP #### [facility] [address] [place] [address] Dr. Yilan ChangCreatinine [Mass/Vol]0.64 mg/dLNormal0.55-1.02The [facility] CenterComment on above:Performed By: #### BMP #### [facility] [address] [place] [address] Dr. Ibis RojasGFR-AF NORWEGIAN>60Normal>=60The [facility] CenterComment on above:Performed By: #### BMP #### [facility] [address] [place] [address] Dr. Ibis RojasGFR-NON AF NORWEGIAN>60Normal>=60The [facility] CenterComment on above:Performed By: #### BMP #### [facility] [address] [place] [address] Dr. Ibis JimenezGlucose [Mass/Vol]141 mg/dLCritically bcdj35-021Gom [facility] CenterComment on above:Performed By: #### BMP #### [facility] [address] [place] [address] Dr. Ibis JimenezPotassium [Moles/Vol]3.6 mmol/LNormal3.5-5.1The [facility] Comment on above:Performed By: #### BMP #### [facility] [address] [place] [address] Dr. Ibis JimenezSodium [Moles/Vol]136 mmol/XJgtjmr934-962Uak [facility] Comment on above:Performed By: #### BMP #### [facility] [address] [place] [address] Dr. Ibis JimenezUrea nitrogen [Mass/Vol]16.0 mg/dLNormal7.0-18.0The [facility] CenterComment on above:Performed By: #### BMP #### [facility] [address] [place] [address] Dr. Ibis Lama nitrogen/Creatinine [Mass ratio]25.0 mg/mgNormalThe [facility] CenterComment on above:Performed By: #### BMP #### [facility] [address] [place] [address] Dr. Ibis GonzalesC AUTO DIFFon [id number] #0.0 103/ulNormal0.0-0.1The [facility] CenterComment on above:Performed By: #### ACET, SALYC #### [facility] [address] [place] [address] Dr. Ibis JimenezBasophils/100 WBC (Bld)0.4 %Normal0.2-2.0The [facility] Comment on above:Performed By: #### ACET, SALYC #### [facility] [address] [place] [address] Dr. Ibis Acevedo #0.2 103/ulNormal0.0-0.7The [facility] CenterComment on above: Performed By: #### ACET, SALYC #### [facility] [address] [place] [address] Dr. Ibis Rojasosinophils/100 WBC (Bld)4.1 %Normal0.9-7.0The [facility] Comment on above:Performed By: #### ACET, SALYC #### [facility] [address] [place] [address] Dr. Ibsi Rojasrythrocyte distribution width (RBC) [Ratio]13.2 %Smisiu14.0-15.0 The [facility] CenterComment on above:Performed By: #### ACET, SALYC #### [facility] [address] [place] [address] Dr. Ibis JimenezHematocrit (Bld) [Volume fraction]34.3 %Critically low36.0-48.0 The [facility] CenterComment on above:Performed By: #### ACET, SALYC #### [facility] [address] [place] [address] Dr. Ibis JimenezHemoglobin (Bld) [Mass/Vol]11.5 g/dLCritically low12.0-16.0The [facility] CenterComment on above:Performed By: #### ACET, SALYC #### [facility] [address] [place] [address] Dr. Ibis Soto #0.01 10e3/ulNormal0.00-0.03The [facility] CenterComment on above:Performed By: #### ACET, SALYC #### [facility] [address] [place] [address] Dr. Ibis Soto %0.2 %Normal0.0-0.5The [facility] CenterComment on above: Performed By: #### ACET, SALYC #### [facility] [address] [place] [address] Dr. Ibis Monsalve #1.5 103/ulNormal1.2-3.8The [facility] CenterComment on above:Performed By: #### ACET, SALYC #### [facility] [address] [place] [address] Dr. Ibis Brennerhocytes/100 WBC (Bld)26.4 %Itotrx61.5-60.0The [facility] CenterComment on above:Performed By: #### ACET, SALYC #### [facility] [address] [place] [address] Dr. Ibis Viera DIFF REQNONormalThe [facility] CenterComment on above: Performed By: #### ACET, SALYC #### [facility] [address] [place] [address] Dr. Ibis Irby (RBC) [Entitic mass]28.8 sxEjnhev60.7-34.0The [facility] Hospitalment on above:Performed By: #### ACET, SALYC #### [facility] [address] [place] [address] Dr. Ibis Frank (RBC) [Mass/Vol]33.5 g/gOObelil22.9-35.2The [facility] CenterComment on above:Performed By: #### ACET, SALYC #### [facility] [address] [place] [address] Dr. Ibis Dan (RBC) [Entitic vol]86.0 iMKioajj46.0-99.0The [facility] CenterComment on above:Performed By: #### ACET, SALYC #### [facility] [address] [place] [address] Dr. Ibis Magallanes #0.5 103/ulNormal0.3-0.8The [facility] CenterComment on above:Performed By: #### ACET, SALYC #### [facility] [address] [place] [address] Dr. Ibis Barbaocytes/100 WBC (Bld)8.2 %Normal1.7-12.0The [facility] Comment on above:Performed By: #### ACET, SALYC #### [facility] [address] [place] [address] Dr. Ibis Schultz #3.4 103/ulNormal1.4-6.5The [facility] CenterComment on above:Performed By: #### ACET, SALYC #### [facility] [address] [place] [address] Dr. Ibis Hiutrophils/100 WBC (Bld)60.7 %Cymqql19.0-75.0The [facility] CenterComment on above:Performed By: #### ACET, SALYC #### [facility] [address] [place] [address] Dr. Ibis Olsenlet mean volume (Bld) [Entitic vol]9.9 fLNormal9.5-13.5The [facility] CenterComment on above:Performed By: #### ACET, SALYC #### [facility] [address] [place] [address] Dr. Ibis JimenezPLT222 103/knOdxptl382-516Rtm [facility] CenterComment on above: Performed By: #### ACET, SALYC #### [facility] [address] [place] [address] Dr. Ibis JimenezRBC3.99 106/ulCritically low4.20-5.40The [facility] CenterComment on above:Performed By: #### ACET, SALYC #### [facility] [address] [place] [address] Dr. Ibis JimenezWBC5.6 103/ulNormal4.0-11.0The [facility] CenterComment on above: Performed By: #### ACET, SALYC #### [facility] [address] [address] [address] Ibis JimenezPROF CHEM 8 (BAS METB)on 88-62-3094Qybvy gap [Moles/Vol]10.5 mmol/LNormalThe [facility] CenterComment on above:Performed By: #### BMP #### [facility] [address] [address] [address] bIis JimenezCalcium [Mass/Vol]8.8 mg/dLNormal8.5-10.1The [facility] Comment on above:Performed By: #### BMP #### [facility] [address] [address] [address] Ibis JimenezChloride [Moles/Vol]105 mmol/OPjluvg20-324Zvy [facility] Comment on above:Performed By: #### BMP #### [facility] [address] [place] [address] Dr. Ibis JimenezCO2 [Moles/Vol]24.9 mmol/JApugzl77.0-32.0[facility] Comment on above:Performed By: #### BMP #### [facility] [address] [address] [address] Ibis JimenezCreatinine [Mass/Vol]0.71 mg/dLNormal0.55-1.02The [facility] CenterComment on above:Performed By: #### BMP #### [facility] [address] [address] [address] Ibis RojasGFR-AF NORWEGIAN>60Normal>=60The [facility] CenterComment on above:Performed By: #### BMP #### [facility] [address] [address] [address] Ibis RojasGFR-NON AF NORWEGIAN>60Normal>=60The [facility] CenterComment on above:Performed By: #### BMP #### [facility] [address] [address] [address] Ibis JimenezGlucose [Mass/Vol]103 mg/gCHrzxxx76-491Igo [facility] Comment on above:Performed By: #### BMP #### [facility] [address] [address] [address] Ibis JimenezPotassium [Moles/Vol]3.4 mmol/LCritically low3.5-5.1[facility] HospitalComment on above:Performed By: #### BMP #### [facility] [address] [address] [address] Ibis JimenezSodium [Moles/Vol]137 mmol/ALjugpy662-300Qbq [facility] Comment on above:Performed By: #### BMP #### [facility] [address] [address] [address] Ibis JimenezUrea nitrogen [Mass/Vol]17.0 mg/dLNormal7.0-18.0[facility] HospitalComment on above:Performed By: #### BMP #### [facility] [address] [place] [address] Dr. Ibis Lama nitrogen/Creatinine [Mass ratio]23.9 mg/mgNormalThe [facility] CenterComment on above:Performed By: #### BMP #### [facility] [address] [place] [address] Dr. Ibis JimenezBasic Metab w/rfx MGon 10-20-2021(cont.)[facility] CenterComment on above:Result Comment: Average GFR for 20-29 years old: 116 mL/min/1.73sq m Chronic Kidney Disease: <60 mL/min/1.73sq m Kidney failure: <15 mL/min/1.73sq m eGFR calculated using average adult body mass. Additional eGFR calculator available at: http://www.Grand Rounds.com/multiple_crcl_2012.htmPerformed By: #### BMPX #### [employer] [address] [place], [place] [id number] [employer] Operator: Shira Holden gap [Moles/Vol]10 mmol/LNormal9-17[facility] CampusComment on above:Performed By: #### BMPX #### [employer] [address] [place] [address] [employer] Operator: CLARK Holdenalcium [Mass/Vol]7.8 mg/dLLow8.6-10.4[facility] CampusComment on above:Performed By: #### BMPX #### [address] [address] [employer] Operator: CLARK Holdenhloride [Moles/Vol]109 mmol/JAjsm66-152MuelbSumma Health Akron CampusComment on above:Performed By: #### BMPX #### [address] [address] [employer] Operator: Tavon Nicole MDCO2 [Moles/Vol]20 mmol/EUgatil68-21JvsxcSumma Health Akron CampusComment on above:Performed By: #### BMPX #### [address] [address] [employer] Operator: CLARK Holdenreatinine [Mass/Vol]0.45 mg/dLLow0.50-0.90[facility] CampusComment on above:Performed By: #### BMPX #### [address] [address] [employer] Operator: Tavon Nicole MDGFR, Amer>60Normal>60[facility] CampusComment on above:Performed By: #### BMPX #### [address] [address] [employer] Operator: Tavon Nicole MDGFR,non Amer>60Normal>60[facility] CampusComment on above:Performed By: #### BMPX #### [address] [address] [employer] Operator: Tavon Nicole MDGlucose [Mass/Vol]84 mg/oBEykmoa64-54OadsxWestern Medical CenterComment on above:Performed By: #### BMPX #### [employer] [address] [place] [address] [employer] Operator: MAGED Holdenotassium [Moles/Vol]4.1 mmol/LNormal3.7-5.3 [facility] CampusComment on above:Result Comment: SPECIMEN SLIGHTLY HEMOLYZED, RESULTS MAY BE ADVERSELY AFFECTED.Performed By: #### BMPX #### [facility] CenterMaestro Healthcare Technology [address] [place] [address] [employer] Operator: ALEX Holdenodium [Moles/Vol]139 mmol/WUlztxt527-986JvxqiSumma Health Akron CampusComment on above:Performed By: #### BMPX #### [employer] [address] [place] [address] [employer] Operator: Tavon Nicole MDUrea nitrogen [Mass/Vol]8 mg/dLNormal6-20[facility] CampusComment on above:Performed By: #### BMPX #### [employer] [address] [place] [address] [employer] Operator: Tavon Nicole MDBamcdowell arh hospital Metabolic Panel w/ Reflex to MGon [id number] gap [Moles/Vol]10 mmol/L9 - 17 mmol/LBON [facility] Calcium [Mass/Vol]7.8 mg/dLLow8.6 - 10.4 mg/dLBON SECAD[facility] Hemarina HEALTHChloride [Moles/Vol]109 mmol/LHigh98 - 107 mmol/LBON SECOURS Hemarina HEALTHCO2 [Moles/Vol] 20 mmol/L20 - 31 mmol/LBON SECOURS [facility] PD[employer] BiotechCreatinine [Mass/Vol]0.45 mg/dL Low0.5 - 0.9 mg/dLBON SECQReserve Inc. HEALTHGFR >6060 - PINF mL/minBON SECOURS Hemarina HEALTHGFR Non->6060 - PINF mL/minBON SECProdea SystemsGFR/1.73 sq M.predicted MDRD (S/P/Bld) [Vol rate/Area][facility] HEALTH SYSTEMComment on above:Average GFR for 20-29 years old: 116 mL/min/1.73sq m Chronic Kidney Disease: <60 mL/min/1.73sq m Kidney failure: <15 mL/min/1.73sq m eGFR calculated using average adult body mass. Additional eGFR calculator available at: http://www.ShopGo/multiple_crcl_2012.htm Glucose [Mass/Vol]84 mg/dL70 - 99 mg/dLBON ADENA HEALTH SYSTEMInterpretation and review of laboratory resultsAbnormalBON ADENA HEALTH SYSTEMPotassium [Moles/Vol]4.1 mmol/L3.7 - 5.3 mmol/LBON ADENA HEALTH SYSTEMComment on above: SPECIMEN SLIGHTLY HEMOLYZED, RESULTS MAY BE ADVERSELY AFFECTED.Sodium [Moles/Vol]139 mmol/L135 - 144 mmol/LBON [facility]DE[facility] HEALTH SYSTEMUrea nitrogen (BldV) [Mass/Vol]8 mg/dL6 - 20 mg/dLBON SECMAYO CLINIC HEALTH SYSTEM– EAU CLAIRECBC with Auto Differentialon [id number] Eos #0.15[facility]ITALAbsolute Immature GranulocyteBON SECUNIVERSITY HOSPITALS HEALTH SYSTEMAbsolute Lymph #1.48 [facility] S[facility]AL HOSPITALAbsolute Lake #0.28[facility]AL HOSPITALBasophils (Bld) [#/Vol]0.03 10*3/uLBON SECUNIVERSITY HOSPITALS HEALTH SYSTEMBasophils/100 WBC (Bld)1 %0 - 2 %[facility] MEDICAL CENTEREosinophils/100 WBC (Bld)3 %1 - 4 %[facility] MEDICAL CENTERHematocrit (Bld) [Volume fraction]35.5 %Low36.3 - 47.1 %[facility]PAUL MEDICAL CENTERHemoglobin (Bld) [Mass/Vol]11.3 g/dLLow11.9 - 15.1 g/dLBON SECUNIVERSITY HOSPITALS HEALTH SYSTEMImmature granulocytes/100 WBC (Bld)0 %0[facility] Interpretation and review of laboratory resultsAbnormalB[facility] Lymphocytes/100 WBC (Bld)34 %24 - 43 %[facility] HEALTH SYSTEMMCH (RBC) [Entitic mass]27.9 pg25.2 - 33.5 pgBON SHELTERING ARMS HOSPITALHC (RBC) [Mass/Vol]31.8 g/dL28.4 - 34.8 g/dLBON SECSELECT MEDICAL SPECIALTY HOSPITAL - TRUMBULLV (RBC) [Entitic vol]87.7 fL82.6 - 102.9 fLBON SECOURS DEPAUL MEDICAL CENTERMonocytes/100 WBC (Bld)6 %3 - 12 %[facility]PAUL MEDICAL CENTERNRBC Automated0.00.0 per 100 WBCBON SECOURS DEPAUL MEDICAL CENTERPlatelet distribution width (Bld) [Ratio]12.9 %11.8 - 14.4 %[facility] Platelets (Bld) [#/Vol]See Reflexed IPF ResultBON SECOURS DEPAUL MEDICAL CENTERRBC (Bld) [#/Vol]4.05 10*6/uL3.95 - 5.11 m/uLBON SECOURS DEPAUL MEDICAL CENTERSegmented neutrophils/100 WBC (Bld)55 %36 - 65 %[facility] DEPAUL MEDICAL CENTERSegs Absolute2.42 [facility] HEALTH SYSTEMWBC (Bld) [#/Vol]4.4 10*3/uLBON D[facility]GL[facility]IAL HOSPITALCBC with Diffon [id number]. Basophil0.03 k/uLNormal 0.00-0.20[facility] CampusComment on above:Performed By: #### CDP, IPF #### [employer] [address] [place] [address] [employer] Operator: Wendy Holden.Imm.Granulocyte<0.04Kzwgax8.00-0.30[facility] CampusComment on above:Performed By: #### CDP, IPF #### [employer] [address] [place] [address] [employer] Operator: Wendy Holden.Neutrophil (Seg)2.42 k/uLNormal1.50-8.10 [facility] CampusComment on above:Performed By: #### CDP, IPF #### [employer] [address] [place] [address] [employer] Operator: Tavon Nicole MDBasophils/100 WBC (Bld)1 %Normal0-2MOlympia Medical CenterComment on above:Performed By: #### CDP, IPF #### [address] [address] [employer] Operator: Tavon Nicole MDEosinophils (Bld) [#/Vol]0.15 10*3/uLNormal 0.00-0.44[facility] CampusComment on above:Performed By: #### CDP, IPF #### [address] [address] [employer] Operator: Tavon Nicole MDEosinophils/100 WBC (Bld)3 %Normal1-4[facility] CampusComment on above:Performed By: #### CDP, IPF #### [address] [address] [employer] Operator: Tavon Nicole MDImmature granulocytes/100 WBC (Bld)0 %Normal0 [facility] CampusComment on above:Performed By: #### CDP, IPF #### [address] [address] [employer] Operator: Antonia Holdenmphocytes (Bld) [#/Vol]1.48 10*3/uLNormal 1.10-3.70[facility] CampusComment on above:Performed By: #### CDP, IPF #### [address] [address] [employer] Operator: Antonia Holdenmphocytes/100 WBC (Bld)34 %Xqeiwf04-53YjpfhSumma Health Akron CampusComment on above:Performed By: #### CDP, IPF #### [address] [address] [employer] Operator: JUNAID Holdenonocytes (Bld) [#/Vol]0.28 10*3/uLNormal 0.10-1.20[facility] CampusComment on above:Performed By: #### CDP, IPF #### [address] [address] [employer] Operator: JUNAID Holdenonocytes/100 WBC (Bld)6 %Normal3-12[facility] CampusComment on above:Performed By: #### CDP, IPF #### [address] [address] [employer] Operator: Tavon Nicole MDNeutrophil (Seg)55 %Gserfn98-85KuyeySumma Health Akron CampusComment on above:Performed By: #### CDP, IPF #### [address] [address] [employer] Operator: Tavon Nicole MDErythrocyte distribution width (RBC) [Ratio]12.9 %Mhaajx49.8-14.4[facility] CampusComment on above:Performed By: #### GAMALIEL, IPF #### [address] [address] [employer] Operator: Tavon Nicole MDHematocrit (Bld) [Volume fraction]35.5 %Low 36.3-47.1MOlympia Medical CenterComment on above:Performed By: #### CDP, IPF #### [address] [address] [employer] Operator: Tavon Nicole MDHemoglobin (Bld) [Mass/Vol]11.3 g/dLLow11.9-15.1 [facility] CampusComment on above:Performed By: #### CDP, IPF #### [address] [address] [employer] Operator: JUNAID HoldenCH (RBC) [Entitic mass]27.9 laUysfog84.2-33.5 [facility] CampusComment on above:Performed By: #### CDP, IPF #### [address] [address] [employer] Operator: JUNAID HoldenCHC (RBC) [Mass/Vol]31.8 g/kDEmtrzz52.4-34.8 [facility] CampusComment on above:Performed By: #### CDP, IPF #### [address] [address] [employer] Operator: JUNAID HoldenCV (RBC) [Entitic vol]87.7 zCBvcpxz41.6-102.9 [facility] CampusComment on above:Performed By: #### CDP, IPF #### [address] [address] [employer] Operator: Tavon Nicole MDNRBC Automated0.0 per 100 WBCNormal0.0[facility] CampusComment on above:Performed By: #### CDP, IPF #### [address] [address] [employer] Operator: Kaylee Holdentelet CountSee Reflexed IPF ResultNormal 138-453Sum[facility] CampusComment on above:Performed By: #### CDP, IPF #### [address] [address] [employer] Operator: FRANCISCO HoldenBC (Bld) [#/Vol]4.05 10*6/uLNormal3.95-5.11 [facility] CampusComment on above:Performed By: #### CDP, IPF #### [address] [address] [employer] Operator: JESSE HoldenBC (Bld) [#/Vol]4.4 10*3/uLNormal3.5-11.3[facility]cla Medical CenterComment on above:Performed By: #### CDP, IPF #### [facility] [address] [place] [address] [employer] Operator: JUSTIN Holden video monitoringon [id number] Owais, MD 10/20/2021 12:11 PM Referring physician: Chris Blanchard APRN Date:10/20/2021 Start Time:10/19/2021 @1258 End Time: 10/20/2021 @ 1200 Indication Patient with recurrent events Introduction This continuous video-EEG was acquired using a [employer] workstation at 256 samples/s. Electrodes were placed [...] Board Certified. Neurology Board Certified. Electronically Signed [employer] Phone: eeg video monitoringOrdered By: Raiza Land on [id number] [employer] Phone: Immature Platelet Fractionon [id number], FluorescencePlatelet clumps present, count appears adequate.Tap2printPLT, Immature Fract.on [id number], Fluoresc.Platelet clumps present, count appears adequate.Rjzuoz732-410TdgfuSumma Health Akron CampusComment on above:Performed By: #### CDP, IPF #### [address] [address] [employer] Operator: MAGED HoldenROLACTINon 07-78-2363Gkstuidal04.7 ng/mL Critically high4.8-23.3TMercy Memorial HospitalComment on above:Performed By: #### CVDTBH #### [facility] [address] [place], [place] [address] Dr. Ibis Nelson [id number] distribution width (RBC) [Ratio]12.9 %Dwcldx57.8-14.4Sum[facility]ron CampusComment on above:Performed By: #### TROPI, LACTIC, CMPX, CBC #### [address] [address] [employer] Operator: Tavon Nicole MDHematocrit (Bld) [Volume fraction]31.5 %Low 36.3-47.1MOlympia Medical CenterComment on above:Performed By: #### TROPI, LACTIC, CMPX, CBC #### [facility] [employer] [address] [place] [address] [employer] Operator: Tavon Nicole MDHemoglobin (Bld) [Mass/Vol]10.8 g/dLLow11.9-15.1 [facility] CampusComment on above:Performed By: #### TROPI, LACTIC, CMPX, CBC #### [facility] [employer] [address] [place] [address] [employer] Operator: JUNAID HoldenCH (RBC) [Entitic mass]29.1 sfMrmyxc22.2-33.5 [facility] CampusComment on above:Performed By: #### TROPI, LACTIC, CMPX, CBC #### [address] [address] [employer] Operator: JUNAID HoldenCHC (RBC) [Mass/Vol]34.3 g/zJQapfjn48.4-34.8 [facility] CampusComment on above:Performed By: #### TROPI, LACTIC, CMPX, CBC #### [address] [address] [employer] Operator: JUNAID HoldenCV (RBC) [Entitic vol]84.9 eBMqmxye35.6-102.9 [facility] CampusComment on above:Performed By: #### TROPI, LACTIC, CMPX, CBC #### [address] [address] [employer] Operator: NIKO HoldenBC Automated0.0 per 100 WBCNormal0.0[facility] CampusComment on above:Performed By: #### TROPI, LACTIC, CMPX, CBC #### [address] [address] [employer] Operator: Greta Holden mean volume (Bld) [Entitic vol]9.8 fL Normal8.1-13.5[facility] CampusComment on above:Performed By: #### TROPI, LACTIC, CMPX, CBC #### [address] [address] [employer] Operator: Kaylee Holdenteyanni (Bld) [#/Vol]281 10*3/bVZbrmcw284-897 [facility] CampusComment on above:Performed By: #### TROPI, LACTIC, CMPX, CBC #### [address] [address] [employer] Operator: Tavon Nicole MDRBC (Bld) [#/Vol]3.71 10*6/uLLow3.95-5.11[facility] CampusComment on above:Performed By: #### TROPI, LACTIC, CMPX, CBC #### [facility] [address] [place], [place] [phone] [employer] Operator: Tavon Nicole MDWBC (Bld) [#/Vol]5.0 10*3/uLNormal3.5-11.3Mer[facility]cla Medical CenterComment on above:Performed By: #### TROPI, LACTIC, CMPX, CBC #### [facility] [address] [place], [place] [phone] [employer] Operator: Tavon Nicole MDHematocrit (Bld) [Volume fraction]31.5 %Low36.3 - 47.1 %[facility]PAUL MEDICAL CENTERHemoglobin (Bld) [Mass/Vol]10.8 g/dLLow11.9 - 15.1 g/dLBON ADENA HEALTH SYSTEMInterpretation and review of laboratory results AbnormalBON SHELTERING ARMS HOSPITALH (RBC) [Entitic mass]29.1 pg25.2 - 33.5 pgBON SHELTERING ARMS HOSPITALHC (RBC) [Mass/Vol]34.3 g/dL28.4 - 34.8 g/dLBON SECSELECT MEDICAL SPECIALTY HOSPITAL - TRUMBULLV (RBC) [Entitic vol]84.9 fL82.6 - 102.9 fLBON SECOURS DEPAUL MEDICAL CENTERNRBC Automated0.00.0 per 100 WBCBON ADENA HEALTH SYSTEMPlatelet distribution width (Bld) [Ratio]12.9 %11.8 - 14.4 %[facility] Platelet mean volume (Bld) [Entitic vol]9.8 fL8.1 - 13.5 fLBON K[facility]ITAL OF USC HEALTHPlatelets (Bld) [#/Vol]281 10*3/uLBON SECUNIVERSITY HOSPITALS HEALTH SYSTEMRBC (Bld) [#/Vol]3.71 10*6/uLLow3.95 - 5.11 m/uLBON SECUNIVERSITY HOSPITALS HEALTH SYSTEMWBC (Bld) [#/Vol] 5.0 10*3/uLBON SECOURS [facility] HEALTHBON SECUNIVERSITY HOSPITALS HEALTH SYSTEMCBC AUTO DIFFon [id number] #0.2 103/ulNormal0.0-0.7The [facility]aritan Medical CenterComment on above: Performed By: #### AMM #### [facility] [address] [place] [address] Dr. Ibis Rojasosinophils/100 WBC (Bld)3.9 %Normal0.9-7.0The [facility] Comment on above:Performed By: #### AMM #### [facility] [address] [place] [address] Dr. Ibis Rojasrythrocyte distribution width (RBC) [Ratio]13.1 %Qtqbej92.0-15.0 The [facility] Medical CenterComment on above:Performed By: #### AMM #### [facility] [address] [place] [address] Dr. Ibis JimenezHematocrit (Bld) [Volume fraction]33.4 %Critically low36.0-48.0 The [facility] Medical CenterComment on above:Performed By: #### AMM #### [facility] [address] [place] [address] Dr. Ibis JimenezHemoglobin (Bld) [Mass/Vol]11.1 g/dLCritically low12.0-16.0The [facility] CenterComment on above:Performed By: #### AMM #### [facility] [address] [place] [address] Dr. Ibis VuongMPH #1.2 103/ulNormal1.2-3.8The [facility] Medical CenterComment on above:Performed By: #### AMM #### [facility] [address] [place] [address] Dr. Ibis JimenezLymphocytes/100 WBC (Bld)25.9 %Rnvesx98.5-60.0The [facility] Medical CenterComment on above:Performed By: #### AMM #### [facility] [address] [place] [address] Dr. Ibis JimenezMCHC (RBC) [Mass/Vol]33.2 g/wXSbkanp11.9-35.2The [facility] CenterComment on above:Performed By: #### AMM #### [facility] [address] [address] [address] Ibis Dan (RBC) [Entitic vol]85.9 qCPsmaaa42.0-99.0The [facility] Medical CenterComment on above:Performed By: #### AMM #### [facility] [address] [place] [address] Dr. Ibis Barbaocytes/100 WBC (Bld)7.7 %Normal1.7-12.0The [facility] Comment on above:Performed By: #### AMM #### [facility] [address] [place] [address] Dr. Ibis Schultz #2.9 103/ulNormal1.4-6.5The [facility] Medical CenterComment on above:Performed By: #### AMM #### [facility] [address] [place] [address] Dr. Ibis Hiutrophils/100 WBC (Bld)61.5 %Oumwxq36.0-75.0The [facility] Medical CenterComment on above:Performed By: #### AMM #### [facility] [address] [place] [address] Dr. Ibis JimenezPLT264 103/zpMqjumi369-342Paz [facility] CenterComment on above: Performed By: #### AMM #### [facility] [address] [place] [address] Dr. Ibis JimenezRBC3.89 106/ulCritically low4.20-5.40The [facility] Medical CenterComment on above:Performed By: #### AMM #### [facility] [address] [place] [address] Dr. Ibis JimenezWBC4.7 103/ulNormal4.0-11.0The The Jewish Hospitalment on above: Performed By: #### AMM #### [facility] [address] [place] [address] Dr. Ibis Escamilla #0.0 103/ulNormal0.0-0.1The Alejandra HospitalComment on above:Performed By: #### AMM #### [facility] [address] [place] [address] Dr. Ibis JimenezPerformed By: #### CVDTBH #### [facility] [address] [place] [address] Dr. Ibis JimenezBasophils/100 WBC (Bld)0.6 %Normal0.2-2.0[facility] Comment on above:Performed By: #### AMM #### [facility] [address] [place] [address] Dr. Ibis JimenezPerformed By: #### CVDTBH #### [facility] [address] [place] [address] Dr. Ibis Acevedo #0.3 103/ulNormal0.0-0.7The [facility] Medical CenterComment on above: Performed By: #### CVDTBH #### [facility] [address] [place] [address] Dr. Ibis Rojasosinophils/100 WBC (Bld)5.0 %Normal0.9-7.0[facility] Comment on above:Performed By: #### CVDTBH #### [facility] [address] [place] [address] Dr. Ibis Rojasrythrocyte distribution width (RBC) [Ratio]12.8 %Wgcfpp70.0-15.0 The [facility] CenterComment on above:Performed By: #### CVDTBH #### [facility] [address] [place] [address] Dr. Ibis JimenezHematocrit (Bld) [Volume fraction]38.0 %Nhbqzi70.0-48.0[facility] HospitalComment on above:Performed By: #### CVDTBH #### [facility] [address] [place] [address] Dr. Ibis JimenezHemoglobin (Bld) [Mass/Vol]12.7 g/mMKqfreu98.0-16.0The [facility] CenterComment on above:Performed By: #### CVDTBH #### [facility] [address] [place], [place] [id number] Dr. Ibis Soto #0.02 10e3/ulNormal0.00-0.03The [facility] Medical CenterComment on above:Performed By: #### AMM #### [facility] [address] [place] [address] Dr. Ibis Cortesformed By: #### CVDTBH #### [facility] [address] [place] [address] Dr. Ibis Soto %0.4 %Normal0.0-0.5The [facility] Medical CenterComment on above: Performed By: #### AMM #### [facility] [address] [place] [address] Dr. Ibis Cortesformed By: #### CVDTBH #### [facility] [address] [place] [address] Dr. Ibis Monsalve #1.7 103/ulNormal1.2-3.8The [facility] CenterComment on above:Performed By: #### CVDTBH #### [facility] [address] [place] [address] Dr. Ibis Brennerhocytes/100 WBC (Bld)30.7 %Vdykcf34.5-60.0The [facility] on above:Performed By: #### CVDTBH #### [facility] [address] [place] [address] Dr. Ibis NewtonUAL DIFF REQNONormalThe [facility] Medical CenterComment on above: Performed By: #### AMM #### [facility] [address] [place] [address] Dr. Ibis Cortesformed By: #### CVDTBH #### [facility] [address] [place] [address] Dr. Ibis Irby (RBC) [Entitic mass]28.5 tnIhkvhn93.7-34.0The [facility] CenterComment on above:Performed By: #### AMM #### [facility] [address] [place] [address] Dr. Ibis Cortesformed By: #### CVDTBH #### [facility] [address] [place] [address] Dr. Ibis Frank (RBC) [Mass/Vol]33.4 g/yCIiaaif88.9-35.2The [facility] CenterComment on above:Performed By: #### CVDTBH #### [facility] [address] [place] [address] Dr. Ibis Frank (RBC) [Entitic vol]85.2 qXHtefwu21.0-99.0The Seth HospitalComment on above:Performed By: #### CVDTBH #### [facility] [address] [place] [address] Dr. Ibis Magallanes #0.4 103/ulNormal0.3-0.8The [facility] Medical CenterComment on above:Performed By: #### AMM #### [facility] [address] [place] [address] Dr. Ibis JimenezPerformed By: #### CVDTBH #### [facility] [address] [place] [address] Dr. Ibis Barbaocytes/100 WBC (Bld)8.1 %Normal1.7-12.0The [facility] Comment on above:Performed By: #### CVDTBH #### [facility] [address] [place] [address] Dr. Ibis Schultz #3.0 103/ulNormal1.4-6.5The [facility] CenterComment on above:Performed By: #### CVDTBH #### [facility] [address] [place] [address] Dr. Ibis Hiutrophils/100 WBC (Bld)55.2 %Andsrr93.0-75.0The [facility] Medical CenterComment on above:Performed By: #### CVDTBH #### [facility] [address] [place] [address] Dr. Ibis Olsenlet mean volume (Bld) [Entitic vol]9.5 fLNormal9.5-13.5The [facility] CenterComment on above:Performed By: #### AMM #### [facility] [address] [place] [address] Dr. Ibis JimenezPerformed By: #### CVDTBH #### [facility] [address] [place] [address] Dr. Ibis JimenezPLT343 103/bfVgdptb893-251Zbz [facility] CenterComment on above: Performed By: #### CVDTBH #### [facility] [address] [place] [address] Dr. Ibis JimenezRBC4.46 106/ulNormal4.20-5.40The [facility] Medical CenterComment on above:Performed By: #### CVDTBH #### [facility] [address] [place] [address] Dr. Ibis JimenezWBC5.4 103/ulNormal4.0-11.0The [facility] Medical CenterComment on above: Performed By: #### CVDTBH #### [facility] [address] [place] [address] Dr. Ibis JimenezCT HEAD WO CONon [id number] HEAD WO CONEXAMINATION: CT HEAD WO CON [...] Electronically authenticated by: LOPEZ REYNOLDS Date: 2021-10-19 07:31[facility] Glen[facility]ighCom Metabolic Pr/rfx MGon 10-19-2021(cont.)NormalMercy Harbor-Ucla Medical CenterComment on above:Result Comment: Average GFR for 20-29 years old: 116 mL/min/1.73sq m Chronic Kidney Disease: <60 mL/min/1.73sq m Kidney failure: <15 mL/min/1.73sq m eGFR calculated using average adult body mass. Additional eGFR calculator available at: http://www.ShopGo/multiple_crcl_2012.htmPerformed By: #### TROPI, LACTIC, CMPX, CBC #### [place] [address] [employer] Operator: Tavon Nicole MDAlbumin [Mass/Vol]3.5 g/dLNormal3.5-5.2MOlympia Medical CenterComment on above:Performed By: #### TROPI, LACTIC, CMPX, CBC #### [place] [address] [employer] Operator: Tavon Nicole MDAlbumin/Glob Ratio1.1Yxmusr5.0-2.5[facility] CampusComment on above:Performed By: #### TROPI, LACTIC, CMPX, CBC #### [place] [address] [employer] Operator: Tavon Nicole MDAlkaline Phos69 U/SCrhrtd07-570PnqrcSumma Health Akron CampusComment on above:Performed By: #### TROPI, LACTIC, CMPX, CBC #### [place] [address] [employer] Operator: Tavon Nicole MDALT [Catalytic activity/Vol]15 U/LNormal5-33 [facility] CampusComment on above:Performed By: #### TROPI, LACTIC, CMPX, CBC #### [place] [address] [employer] Operator: Tavon Nicole MDAnion gap [Moles/Vol]13 mmol/LNormal9-17[facility] CampusComment on above:Performed By: #### TROPI, LACTIC, CMPX, CBC #### [facility] [address] [place] [address] [employer] Operator: Tavon Nicole MDAST [Catalytic activity/Vol]12 U/LNormal<32[facility] CampusComment on above:Performed By: #### TROPI, LACTIC, CMPX, CBC #### [address] [address] [employer] Operator: Tavon Nicole MDBilirubin [Mass/Vol]0.24 mg/dLLow0.3-1.2MOlympia Medical CenterComment on above:Performed By: #### TROPI, LACTIC, CMPX, CBC #### [address] [address] [employer] Operator: Tavon Nicole MDCalcium [Mass/Vol]8.1 mg/dLLow8.6-10.4[facility] CampusComment on above:Performed By: #### TROPI, LACTIC, CMPX, CBC #### [address] [address] [employer] Operator: Tavon Nicole MDChloride [Moles/Vol]107 mmol/XSryzob77-143GzedtSumma Health Akron CampusComment on above:Performed By: #### TROPI, LACTIC, CMPX, CBC #### [address] [address] [employer] Operator: Tavon Nicole MDCO2 [Moles/Vol]19 mmol/FLdu19-93SdpigSumma Health Akron CampusComment on above:Performed By: #### TROPI, LACTIC, CMPX, CBC #### [address] [address] [employer] Operator: Tavon Nicole MDCreatinine [Mass/Vol]0.53 mg/dLNormal0.50-0.90 [facility] CampusComment on above:Performed By: #### TROPI, LACTIC, CMPX, CBC #### [facility] [address] [place] [address] [employer] Operator: Tavon Nicole MDGFR, Amer>60Normal>60[facility] CampusComment on above:Performed By: #### TROPI, LACTIC, CMPX, CBC #### [facility] [address] [place] [address] [employer] Operator: DEJA Holden,non Amer>60Normal>60MerNaval Medical Center San DiegoComment on above:Performed By: #### TROPI, LACTIC, CMPX, CBC #### [facility] [address] [place] [address] [employer] Operator: Tavon Nicole MDGlucose [Mass/Vol]81 mg/vVMxvgtm95-42AcojtOlympia Medical CenterComment on above:Performed By: #### TROPI, LACTIC, CMPX, CBC #### [address] [address] [employer] Operator: Tavon Nicole MDPotassium [Moles/Vol]3.9 mmol/LNormal3.7-5.3 [facility] CampusComment on above:Performed By: #### TROPI, LACTIC, CMPX, CBC #### [address] [address] [employer] Operator: Tavon Nicole MDProtein [Mass/Vol]6.0 g/dLLow6.4-8.3MOlympia Medical CenterComment on above:Performed By: #### TROPI, LACTIC, CMPX, CBC #### [address] [address] [employer] Operator: Tavon Nicole MDSodium [Moles/Vol]139 mmol/HTlzzwr186-543LezszSumma Health Akron CampusComment on above:Performed By: #### TROPI, LACTIC, CMPX, CBC #### [facility] [address] [place] [address] [employer] Operator: Tavon Nicole MDUrea nitrogen [Mass/Vol]10 mg/dLNormal6-20[facility] CampusComment on above:Performed By: #### TROPI, LACTIC, CMPX, CBC #### [facility] [address] [place], [place] [id number] [employer] Operator: CLARK Holdenomprehensive Metabolic Panel w/ Reflex to MGon [id number] [Mass/Vol]3.5 g/dL3.5 - 5.2 g/dLBON [facility] [...] MERCY HEALTHGFR/1.73 sq M.predicted MDRD (S/P/Bld) [Vol rate/Area][facility] on above:Average GFR for 20-29 years old: 116 mL/min/1.73sq m Chronic Kidney Disease: <60 mL/min/1.73sq m Kidney failure: <15 mL/min/1.73sq m eGFR calculated using average adult body mass. Additional eGFR calculator available at: http://www.ShopGo/SpinVox_crcl_2012.htm Glucose [Mass/Vol]81 mg/dL70 - 99 mg/dLBON ADENA HEALTH SYSTEMInterpretation and review of laboratory resultsAbnormalBON ADENA HEALTH SYSTEMPotassium [Moles/Vol]3.9 mmol/L3.7 - 5.3 mmol/LBON ADENA HEALTH SYSTEMSodium [Moles/Vol] 139 mmol/L135 - 144 mmol/LBON ADENA HEALTH SYSTEMUrea nitrogen (BldV) [Mass/Vol]10 mg/dL6 - 20 mg/dLBON [facility] Covid-19 PCR (CVDTBH)on [id number]-CoV-2 (COVID-19) RNA SAURABH+probe Ql (Unsp spec)Not detectedNormalNOT DETECTEDThe [facility] on above:Result Comment: When diagnostic testing is [...] for this test is supported by the [place] of [employer] and Human Service's declaration that [...] longer be used).Performed By: #### CVDTBH #### [facility] [address] [place] [address] Dr. Ibis Cristina SCREEN RAPID (URINE)on [id number]X [facility] on above:Performed By: #### BMP #### [facility] [address] [place] [address] Dr. Ibis JimenezBARPositiveAbnormalNEGFayette County Memorial Hospital on above: Performed By: #### BMP #### [facility] [address] [place] [address] Dr. Ibis JimenezBUPNegativeNormalNEGFayette County Memorial Hospital on above: Performed By: #### BMP #### [facility] [address] [place] [address] Dr. Ibis JimenezBZOPositiveDeer Park HospitalNEGFayette County Memorial Hospital on above: Performed By: #### BMP #### [facility] [address] [place] [address] Dr. Ibis DanielCNegativeNormalNEGFayette County Memorial Hospital on above: Performed By: #### BMP #### [facility] [address] [place] [address] Dr. Ibis YanBucyrus Community HospitalCompaul [facility] on above: Result Comment: AMP (Amphetamine): 500ng/mL, BAR (Barbituates): 200 ng/mL, BZO (Benzodiazepines): 150 ng/mL, BUP (Buprenorphine): 10 ng/mL, SEMAJ (Cocaine): 150 ng/mL, mAMP (Methamphetamine): 500 ng/mL, MTD (Methadone): 200 ng/mL, OPI (Opiates): 100 ng/mL, OXY (Oxycodone): 100 ng/mL, PCP (Phencyclidine): 25 ng/mL, PPX (Propoxyphene): 300 ng/mL, THC (Cannabinoids): 50 ng/mL, TCA (Trycyclic Antidepressants): 300 ng/mLPerformed By: #### BMP #### [facility] [address] [place] [address] Dr. Yilan ChangDRUG CUT HEADERDRUG CLASS TEST SYSTEM CUT-OFF CONCENTRATIONS ARE FOLLOWS:NormalThe [facility] Medical CenterComment on above:Performed By: #### BMP #### [facility] [address] [place] [address] Dr. Ibis JimenezmAMPNegativeNormalNEGATIVECleveland Clinic Marymount HospitalCompaul [facility] on above: Performed By: #### BMP #### [facility] [address] [address] [address] Ibis JimenezMTDNegativeNormalNEGATIVECleveland Clinic Marymount HospitalCompaul [facility] on above: Performed By: #### BMP #### [facility] [address] [address] [address] Ibis JimenezOPIPositiveAbnormalNEGATIVECleveland Clinic Marymount HospitalCompaul [facility] on above: Performed By: #### BMP #### [facility] [address] [place] [address] Dr. Ibis JimenezOXYPositiveAbnormalNEGATIVECleveland Clinic Marymount HospitalCompaul [facility] on above: Performed By: #### BMP #### [facility] [address] [place] [address] Dr. Ibis JimenezPCPNegativeNormalNEGATIVECleveland Clinic Marymount HospitalCompaul [facility] on above: Performed By: #### BMP #### [facility] [address] [place] [address] Dr. Ibis JimenezPPXNegativeNormalNEGATIVESelect Medical [facility] on above: Performed By: #### BMP #### [facility] [address] [place] [address] Dr. Ibis JimenezTCANegativeNormalNEGATIVECleveland Clinic Marymount HospitalCompaul [facility] on above: Performed By: #### BMP #### [facility] [address] [address] [address] Ibis JimenezTHCNegativeNormalNEGATIVESelect Medical [facility] on above: Performed By: #### BMP #### [facility] [address] [place] [address] Dr. Baumann ChangER URINE PROFILEon [id number] Ql (U)NegativeNormal NEGATIVESelect Medical Specialty Hospital - [facility]-Fairhill HospitalComment on above:Performed By: #### BMP #### [facility] [address] [address] [address] Ibis JimenezClarity (U)CLEARNormalCLEARSelect Medical Specialty Hospital - Cleveland-Fairhill HospitalComment on above: Performed By: #### BMP #### [facility] [address] [address] [address] Ibis JimenezColor (U)YELLOWNormalYELLOWSelect Medical Specialty Hospital - Cleveland-Fairhill HospitalComment on above: Performed By: #### BMP #### [facility] [address] [address] [address] Ibis Chang micrscopic examination will be performed if indicated. NormalThe Seth HospitalComment on above:Performed By: #### BMP #### [facility] [address] [address] [address] Ibis JimenezGlucose Ql (U)NegativeNormalNEGATIVESelect Medical Specialty Hospital - Cleveland-Fairhill HospitalComment on above:Performed By: #### BMP #### [facility] [address] [address] [address] Ibis JimenezHemoglobin Ql (U)TRACE-INTACTAbnormalNEGATIVECleveland Clinic Marymount HospitalComment on above:Performed By: #### BMP #### [facility] [address] [address] [address] Ibis JimenezKetones Ql (U)NegativeNormalNEGATIVECleveland Clinic Marymount HospitalComment on above:Performed By: #### BMP #### [facility] [address] [address] [address] Ibis JimenezLEUKOCYTESNegativeNormalNEGATIVECleveland Clinic Marymount HospitalCompaul [facility] on above:Performed By: #### BMP #### [facility] [address] [address] [address] Ibis JimenezNitrite Ql (U)NegativeNormalNEGATIVECleveland Clinic Marymount HospitalComment on above:Performed By: #### BMP #### [facility] [address] [address] [address] Ibis JimenezpH (U)5.5 [pH]Normal5-9C[facility] Marymount HospitalComment on above: Performed By: #### BMP #### [facility] [address] [address] [address] Ibis JimenezSPEC GRAVITY>=1.718Eqfxfium9.005-<=1.025The [facility] Comment on above:Performed By: #### BMP #### [facility] [address] [address] [address] Ibis Quintanilla PROTEINNegativeNormalNEGATIVE/ TRACEThe [facility] Comment on above:Performed By: #### BMP #### [facility] [address] [address] [address] Ibis Curtis MICRO INDINDICATEDNormalThRegency Hospital CompanyComment on above: Performed By: #### BMP #### [facility] [address] [place] [address] Dr. Ibis Lorenzbilinogen Qn (U)0.2 {Dinorah'U}/dLNormal0.2 - 1.0The [facility] CenterComment on above:Performed By: #### BMP #### [facility] [address] [address] [address] Ibis JimenezLACTATE/LACTIC ACIDon [id number] [Moles/Vol]1.2 mmol/L Normal0.4-1.9[facility] Marymount HospitalComment on above:Performed By: #### AMM #### [facility] [address] [place] [address] Dr. Ibis JimenezLactic Acidon 89-63-0696Vgzeyl Acid,Whole Bl0.9 mmol/LNormal 0.7-2.1Mer[facility] Harbor-Ucla Medical CenterComment on above:Performed By: #### TROPI, LACTIC, CMPX, CBC #### [facility] [employer] [facility] [place] [address] [employer] Operator: Tavon Nicole MDLactic Acid, Whole Blood0.9 mmol/L0.7 - 2.1 mmol/LBON [facility] 39-17-9187Zjtaisjdk (Bld) [#/Vol]NegativeNormalNEGATIVEThe [facility] CenterComment on above: Performed By: #### MONO #### [facility] [address] [address] [address] Ibis JimenezMRI BRAIN W WO CONTRASTon [id number] BRAIN W WO CONTRAST EXAMINATION: MRI OF [...] by: Carlos Marks DO 10/19/21 Final resultNormalMercy Harbor-Ucla Medical CenterUnremarkable MR brain. [facility] RIS CONSOLIDATEDEXAMINATION: MRI OF THE BRAIN WITHOUT [...] The soft tissues demonstrate no acute abnormality. [facility] Carlos Dumont DO - 10/19/2021 EXAMINATION: MRI [...] no acute abnormality. IMPRESSION: Unremarkable MR brain. [employer] Phone: radiology Study observation (narrative)[employer] Phone: MRI BRAIN W WO CONTRASTOrdered By: Carlos Marks on [id number] [employer] Phone: PH VENOUS BLOODon [id number] FNUHKE17.6 mmHg Critically low40.0-52.0The [facility] CenterComment on above:Performed By: #### BMP #### [facility] [address] [place] [address] Dr. Ibis JimenezpH VENOUS7.233Fnlozt3.330-7.430The [facility] Medical CenterComment on above:Performed By: #### BMP #### [facility] [address] [place] [address] Dr. Ibis JimenezPROF CHEM 8 (BAS METB)on 49-63-0807Gvdju gap [Moles/Vol]11.9 mmol/LNormalThe [facility] CenterComment on above:Performed By: #### MONO #### [facility] [address] [place] [address] Dr. Ibis JimenezCalcium [Mass/Vol]9.1 mg/dLNormal8.5-10.1The [facility] Comment on above:Performed By: #### MONO #### [facility] [address] [place] [address] Dr. Ibis JimenezChloride [Moles/Vol]104 mmol/KZrwwyi53-627Pso [facility] Comment on above:Performed By: #### MONO #### [facility] [address] [place] [address] Dr. Ibis JimenezCO2 [Moles/Vol]26.7 mmol/BOokuuz29.0-32.0The [facility] Comment on above:Performed By: #### MONO #### [facility] [address] [place] [address] Dr. Ibis JimenezCreatinine [Mass/Vol]0.78 mg/dLNormal0.55-1.02The [facility] CenterComment on above:Performed By: #### MONO #### [facility] [address] [place] [address] Dr. Ibis RojasGFR-AF NORWEGIAN>60Normal>=60The [facility] CenterComment on above:Performed By: #### MONO #### [facility] [address] [place] [address] Dr. Ibis RojasGFR-NON AF NORWEGIAN>60Normal>=60[facility] Mary[facility] HospitalComment on above:Performed By: #### MONO #### [facility] [address] [address] [address] Ibis JimenezGlucose [Mass/Vol]96 mg/hCZoevvn24-855MotCleveland Clinic Marymount Hospital Comment on above:Performed By: #### MONO #### [facility] [address] [address] [address] Ibis JimenezPotassium [Moles/Vol]3.6 mmol/LNormal3.5-5.1[facility] Comment on above:Performed By: #### MONO #### [facility] [address] [address] [address] Ibis JimenezSodium [Moles/Vol]139 mmol/LYvcsvu071-230Pyo [facility] Comment on above:Performed By: #### MONO #### [facility] [address] [address] [address] Ibis JimenezUrea nitrogen [Mass/Vol]14.0 mg/dLNormal7.0-18.0[facility] HospitalComment on above:Performed By: #### MONO #### [facility] [address] [address] [address] Ibis Lama nitrogen/Creatinine [Mass ratio]17.9 mg/mgNormalThe [facility] CenterComment on above:Performed By: #### MONO #### [facility] [address] [address] [address] Ibis Wang 45-24-6775SLF9.389 uIU/mLNormal0.358-3.740C[facility] Clinic Mary[facility] HospitalComment on above:Performed By: #### ACET, SALYC #### [facility] [address] [address] [address] Ibis Zacarias 49-25-7498Mfzxfusg, High Sens<4Msvwoy1-71OzyphSumma Health Akron CampusComment on above:Result Comment: High Sensitivity Troponin values cannot be compared with other Troponin methodologies. Patients with high levels of Biotin oral intake (i.e >5mg/day) may have falsely decreased Troponin levels. Samples collected within 8 hours of biotin intake may require additional information for diagnosis.Performed By: #### TROPI, LACTIC, CMPX, CBC #### [facility] [address] [place] [address] [employer] Operator: Geraldo Holden, High Sensitivityng/L0 - 14 ng/LBON [facility] on above: High Sensitivity Troponin values cannot be compared with other Troponin methodologies. Patients with high levels of Biotin oral intake (i.e >5mg/day) may have falsely decreased Troponin levels. Samples collected within 8 hours of biotin intake may require additional information for diagnosis. [facility] SYSTEMURINE MICROSCOPIC ONLYon [id number] NONE SEENCleveland Clinic Marymount HospitalCompaul [facility] on above:Performed By: #### BMP #### [facility] [address] [place] [address] Dr. Ibis Pettit identified Cx Nom (U)NOT INDICATEDNormalThRegency Hospital CompanyCompaul oliver memorial hospital on above:Performed By: #### BMP #### [facility] [address] [place] [address] Dr. Ibis Baron SEENNormalNONE [facility] on above:Performed By: #### BMP #### [facility] [address] [place] [address] Dr. Ibis Oviedo LM Nom (Urine sed)NONE SEENNormalNONE SEENCleveland Clinic Marymount HospitalCompaul oliver memorial hospital on above:Performed By: #### BMP #### [facility] [address] [place] [address] Dr. Ibis Rojaspithelial cells LM Ql (Urine sed)RARENormalNONE SEEN /RARESelect Medical [facility] on above:Performed By: #### BMP #### [facility] [address] [place] [address] Dr. Ibis GramajoGEAbnormalNONE SEENSelect Medical [facility]Health Rehabilitation Hospital on above:Performed By: #### BMP #### [facility] [address] [place] [address] Dr. Ibis JimenezRxdivEQC8-8Zajozhua9-0Xas [facility] CenterComment on above:Performed By: #### BMP #### [facility] [address] [address] [address] Ibis JimenezWBC0-2AbnormalNONE SEENThe [facility] CenterComment on above: Performed By: #### BMP #### [facility] [address] [address] [address] Ibis JimenezCT ABD/PELVIS WO CONon [id number] ABD/PELVIS WO CONIndication: Pelvic pain status post [...] Electronically authenticated by: JASS LAURENT Date: 2021-10-06 20:08[facility] URINE PROFILEon 30-71-7838Dnaofowmj Ql (U)NegativeNormal NEGATIVECleveland Clinic Marymount HospitalComment on above:Performed By: #### MONO #### [facility] [address] [place] [address] Dr. Ibis Sage (U)CLEARNormalCLEARCleveland Clinic Marymount HospitalComment on above: Performed By: #### MONO #### [facility] [address] [place] [address] Dr. Ibis Rivera (U)LT. YELLOWNormalYELLOWCleveland Clinic Marymount HospitalComment on above:Performed By: #### MONO #### [facility] [address] [place] [address] Dr. Ibis Chang micrscopic examination will be performed if indicated. NormalCleveland Clinic Marymount HospitalCompaul oliver memorial hospital on above:Performed By: #### MONO #### [facility] [address] [place] [address] Dr. Ibis JimenezGlucose Ql (U)NegativeNormalNEGATIVECleveland Clinic Marymount HospitalCompaul oliver memorial hospital on above:Performed By: #### MONO #### [facility] [address] [place] [address] Dr. Ibis JimenezHemoglobin Ql (U)NegativeNormalNEGATIVEThe [facility] on above:Performed By: #### MONO #### [facility] [address] [place] [address] Dr. Ibis JimenezKetones Ql (U)NegativeNormalNEGATIVECleveland Clinic Marymount HospitalComment on above:Performed By: #### MONO #### [facility] [address] [place] [address] Dr. Ibis JimenezLEUKOCYTESNegativeNormalNEGATIVECleveland Clinic Marymount HospitalCompaul o[facility] memorial hospital on above:Performed By: #### MONO #### [facility] [address] [place] [address] Dr. Ibis JimenezNitrite Ql (U)NegativeNormalNEGATIVECleveland Clinic Marymount HospitalComment on above:Performed By: #### MONO #### [facility] [address] [place] [address] Dr. Ibis JimenezpH (U)8.0 [pH]Normal5-9The [facility] CenterComment on above: Performed By: #### MONO #### [facility] [address] [place] [address] Dr. Ibis JimenezSPEC GRAVITY1.739Bjqoqd7.005-<=1.025The [facility] CenterComment on above:Performed By: #### MONO #### [facility] [address] [place] [address] Dr. Ibis Quintanilla PROTEINNegativeNormalNEGATIVE/ TRACEThe [facility] Comment on above:Performed By: #### MONO #### [facility] [address] [place] [address] Dr. Ibis Curtis MICRO INDNOT INDICATEDNormalThe [facility] CenterComment on above:Performed By: #### MONO #### [facility] [address] [place] [address] Dr. Ibis JimenezUrobilinogen Qn (U)0.2 {Dinorah'U}/dLNormal0.2 - 1.0[facility] HospitalComment on above:Performed By: #### MONO #### [facility] [address] [place] [address] Dr. Ibsi Drake URINE PROFILEon 50-98-9184Gakumtsxu Ql (U)NegativeNormal NEGATIVECleveland Clinic Marymount HospitalComment on above:Performed By: #### CVDTBH #### [facility] [address] [place] [address] Dr. Ibis Pratherarity (U)CLEARNormalCLEARThe [facility] CenterComment on above: Performed By: #### CVDTBH #### [facility] [address] [place] [address] Dr. Ibis Rivera (U)YELLOWNormalYELLOWCleveland Clinic Marymount HospitalComment on above: Performed By: #### CVDTBH #### [facility] [address] [place] [address] Dr. Ibis Chang micrscopic examination will be performed if indicated. NormalThe [facility] CenterComment on above:Performed By: #### CVDTBH #### [facility] [address] [address] [address] Ibis JimenezGlucose Ql (U)NegativeNormalNEGATIVECleveland Clinic Marymount HospitalComment on above:Performed By: #### CVDTBH #### [facility] [address] [address] [address] Ibis JimenezHemoglobin Ql (U)NegativeNormalNEGATIVECleveland Clinic Marymount Hospital Comment on above:Performed By: #### CVDTBH #### [facility] [address] [place] [address] Dr. Ibis JimenezKetones Ql (U)NegativeNormalNEGATIVECleveland Clinic Marymount HospitalComment on above:Performed By: #### CVDTBH #### [facility] [address] [place] [address] Dr. Ibis JimenezLEUKOCYTESNegativeNormalNEGATIVECleveland Clinic Marymount HospitalComment on above:Performed By: #### CVDTBH #### [facility] [address] [place] [address] Dr. Ibis JimenezNitrite Ql (U)NegativeNormalNEGATIVECleveland Clinic Marymount HospitalComment on above:Performed By: #### CVDTBH #### [facility] [address] [place] [address] Dr. Ibis JimenezpH (U)6.0 [pH]Normal5-9[facility] HospitalComment on above: Performed By: #### CVDTBH #### [facility] [address] [place] [address] Dr. Ibis JimenezSPEC GRAVITY1.379Kzcrlw9.005-<=1.025The [facility] CenterComment on above:Performed By: #### CVDTBH #### [facility] [address] [place] [address] Dr. Ibis Quintanilla PROTEINNegativermalNEGATIVE/ TRACECleveland Clinic Marymount Hospital Comment on above:Performed By: #### CVDTBH #### [facility] [address] [place] [address] Dr. Ibis Curtis MICRO INDNOT INDICATEDACMC Healthcare System GlenbeighComment on above:Performed By: #### CVDTBH #### [facility] [address] [place] [address] Dr. Ibis Ray Qn (U)0.2 {Dinorah'U}/dLNormal0.2 - 1.0The [facility] CenterComment on above:Performed By: #### CVDTBH #### [facility] [address] [place] [address] Dr. Ibis Alexis AUTO DIFFon [id number] #0.0 103/ulNormal0.0-0.1The [facility] CenterComment on above:Performed By: #### BMP #### [facility] [address] [place] [address] Dr. Ibis JimenezBasophils/100 WBC (Bld)0.3 %Normal0.2-2.0[facility] Comment on above:Performed By: #### BMP #### [facility] [address] [place] [address] Dr. Ibis Acevedo #0.3 103/ulNormal0.0-0.7The [facility] CenterComment on above: Performed By: #### BMP #### [facility] [address] [place] [address] Dr. Ibis Rojasosinophils/100 WBC (Bld)4.1 %Normal0.9-7.0The [facility] Comment on above:Performed By: #### BMP #### [facility] [address] [place] [address] Dr. Ibis Rojasrythrocyte distribution width (RBC) [Ratio]13.2 %Slxtbb67.0-15.0 [facility] HospitalComment on above:Performed By: #### BMP #### [facility] [address] [place] [address] Dr. Ibis JimenezHematocrit (Bld) [Volume fraction]35.7 %Critically low36.0-48.0 The [facility] CenterComment on above:Performed By: #### BMP #### [facility] [address] [address] [address] Ibis JimenezHemoglobin (Bld) [Mass/Vol]11.6 g/dLCritically low12.0-16.0The [facility] CenterComment on above:Performed By: #### BMP #### [facility] [address] [place] [address] Dr. Ibis Soto #0.02 10e3/ulNormal0.00-0.03The [facility] CenterComment on above:Performed By: #### BMP #### [facility] [address] [place] [address] Dr. Ibis Soto %0.3 %Normal0.0-0.5The [facility] CenterComment on above: Performed By: #### BMP #### [facility] [address] [place] [address] Dr. Ibis Brenner #1.5 103/ulNormal1.2-3.8The [facility] CenterComment on above:Performed By: #### BMP #### [facility] [address] [place] [address] Dr. Ibis Brennerhocytes/100 WBC (Bld)24.3 %Gwztam20.5-60.0The [facility] Medical CenterComment on above:Performed By: #### BMP #### [facility] [address] [place] [address] Dr. Ibis NewtonUAL DIFF REQNONormalThe [facility] CenterComment on above: Performed By: #### BMP #### [facility] [address] [place] [address] Dr. Ibis JimenezROCHESTER REG[facility] (RBC) [Entitic mass]28.9 daAbcehx90.7-34.0The [facility] CenterComment on above:Performed By: #### BMP #### [facility] [address] [place] [address] Dr. Ibis Frank (RBC) [Mass/Vol]32.5 g/sKByxnrd79.9-35.2The [facility] CenterComment on above:Performed By: #### BMP #### [facility] [address] [address] [address] Ibis FrankV (RBC) [Entitic vol]89.0 tUUxetfi72.0-99.0The [facility] CenterComment on above:Performed By: #### BMP #### [facility] [address] [place] [address] Dr. Ibis Magallanes #0.5 103/ulNormal0.3-0.8The [facility] CenterComment on above:Performed By: #### BMP #### [facility] [address] [place] [address] Dr. Ibis Barbaocytes/100 WBC (Bld)7.3 %Normal1.7-12.0The [facility] Comment on above:Performed By: #### BMP #### [facility] [address] [place] [address] Dr. Ibis Schultz #4.0 103/ulNormal1.4-6.5The [facility] CenterComment on above:Performed By: #### BMP #### [facility] [address] [place] [address] Dr. Ibis Hiutrophils/100 WBC (Bld)63.7 %Xgbdoy34.0-75.0The [facility] CenterComment on above:Performed By: #### BMP #### [facility] [address] [place] [address] Dr. Ibis Olsenlet mean volume (Bld) [Entitic vol]9.7 fLNormal9.5-13.5The [facility] CenterComment on above:Performed By: #### BMP #### [facility] [address] [place] [address] Dr. Ibis JimenezPLT237 103/vrJdpyhp837-008Uqq [facility] CenterComment on above: Performed By: #### BMP #### [facility] [address] [place] [address] Dr. Ibis JimenezRBC4.01 106/ulCritically low4.20-5.40The [facility] CenterComment on above:Performed By: #### BMP #### [facility] [address] [place] [address] Dr. Ibis JimenezWBC6.3 103/ulNormal4.0-11.0The [facility] CenterComment on above: Performed By: #### BMP #### [facility] [address] [place] [address] Dr. Ibis JimenezLACTATE/LACTIC ACIDon 40-83-8842Erjunep [Moles/Vol]1.2 mmol/L Normal0.4-1.9The [facility] CenterComment on above:Performed By: #### AMM #### [facility] [address] [place] [address] Dr. Ibis Lin 69-64-4663Ozve nitrogen [Mass/Vol]7.0 mg/dLNormal7.0-18.0 The [facility] CenterComment on above:Performed By: #### CVDTBH #### [facility] [address] [place] [address] Dr. Ibis GonzalesC AUTO DIFFon 65-69-8831EKWM #0.0 103/ulNormal0.0-0.1The [facility] CenterComment on above:Performed By: #### AMM #### [facility] [address] [place] [address] Dr. Ibis JimenezBasophils/100 WBC (Bld)0.2 %Normal0.2-2.0The [facility] Comment on above:Performed By: #### AMM #### [facility] [address] [place] [address] Dr. Ibis Acevedo #0.0 103/ulNormal0.0-0.7The [facility] CenterComment on above: Performed By: #### AMM #### [facility] [address] [place] [address] Dr. Ibis Rojasosinophils/100 WBC (Bld)0.3 %Critically low0.9-7.0The [facility] CenterComment on above:Performed By: #### AMM #### [facility] [address] [place] [address] Dr. Ibis Rojasrythrocyte distribution width (RBC) [Ratio]12.7 %Aqffhk18.0-15.0 The University [facility] Medical CenterComment on above:Performed By: #### AMM #### [facility] [address] [place] [address] Dr. Ibis JimenezHematocrit (Bld) [Volume fraction]43.4 %Tvgvuf60.0-48.0The [facility] CenterComment on above:Performed By: #### AMM #### [facility] [address] [place] [address] Dr. Ibis JimenezHemoglobin (Bld) [Mass/Vol]14.6 g/uYPtdfoi91.0-16.0The [facility] CenterComment on above:Performed By: #### AMM #### [facility] [address] [place] [address] Dr. Ibis Soto #0.03 10e3/ulNormal0.00-0.03The [facility] CenterCompaul [facility] on above:Performed By: #### AMM #### [facility] [address] [place] [address] Dr. Ibis Soto %0.3 %Normal0.0-0.5The [facility] CenterCompaul [facility] on above: Performed By: #### AMM #### [facility] [address] [place] [address] Dr. Ibis BrennerH #1.2 103/ulNormal1.2-3.8The [facility] CenterCompaul [facility] on above:Performed By: #### AMM #### [facility] [address] [place] [address] Dr. Ibis Vuongmphocytes/100 WBC (Bld)11.6 %Critically low20.5-60.0The [facility] CenterCompa[facility] on above:Performed By: #### AMM #### [facility] [address] [place] [address] Dr. Ibis NewtonUAL DIFF REQNONormalThe [facility] CenterComment on above: Performed By: #### AMM #### [facility] [address] [address] [address] Ibis Frank (RBC) [Entitic mass]28.5 zeVqzuyq78.7-34.0The [facility] CenterComment on above:Performed By: #### AMM #### [facility] [address] [place] [address] Dr. Ibis Frank (RBC) [Mass/Vol]33.6 g/qQKfnmoj89.9-35.2The [facility] CenterComment on above:Performed By: #### AMM #### [facility] [address] [place] [address] Dr. Ibis FrankV (RBC) [Entitic vol]84.6 dABkvypx17.0-99.0The [facility] CenterComment on above:Performed By: #### AMM #### [facility] [address] [place] [address] Dr. Ibis Magallanes #0.6 103/ulNormal0.3-0.8The [facility] CenterComment on above:Performed By: #### AMM #### [facility] [address] [place] [address] Dr. Ibis Barbaocytes/100 WBC (Bld)5.9 %Normal1.7-12.0The [facility] Comment on above:Performed By: #### AMM #### [facility] [address] [place] [address] Dr. Ibis Schultz #8.2 103/ulCritically high1.4-6.5The [facility] Comment on above:Performed By: #### AMM #### [facility] [address] [place] [address] Dr. Ibis Hiutrophils/100 WBC (Bld)81.7 %Critically high43.0-75.0The [facility] CenterComment on above:Performed By: #### AMM #### [facility] [address] [place] [address] Dr. Ibis Olsenlet mean volume (Bld) [Entitic vol]9.8 fLNormal9.5-13.5The [facility] Hospitalment on above:Performed By: #### AMM #### [facility] [address] [place] [address] Dr. Ibis JimenezPLT264 103/fvCdwzzb609-332Mgl [facility] CenterCompaul [facility] on above: Performed By: #### AMM #### [facility] [address] [place] [address] Dr. Ibis JimenezRBC5.13 106/ulNormal4.20-5.40The [facility] CenterComment on above:Performed By: #### AMM #### [facility] [address] [place] [address] Dr. Ibis HamiltonBC10.1 103/ulNormal4.0-11.0The [facility]ment on above:Performed By: #### AMM #### [facility] [address] [place] [address] Dr. Ibis JimenezCREATININEon 53-24-2925Wgqkcihhvm [Mass/Vol]0.69 mg/dLNormal 0.55-1.02The [facility] CenterComment on above:Performed By: #### CVDTBH #### [facility] [address] [place] [address] Dr. Ibis RojasGFR-AF NORWEGIAN>60Normal>=60The [facility] CenterCompaul [facility] on above:Performed By: #### CVDTBH #### [facility] [address] [place] [address] Dr. Ibis RoajsGFR-NON AF NORWEGIAN>60Normal>=60The [facility]ment on above:Performed By: #### CVDTBH #### [facility] [address] [place] [address] Dr. Ibis GonzalesC AUTO DIFFon 88-83-3823UIXJ #0.0 103/ulNormal0.0-0.1The [facility] on above:Performed By: #### AMM #### [facility] [address] [place] [address] Dr. Ibis JimenezBasophils/100 WBC (Bld)0.3 %Normal0.2-2.0The [facility] Comment on above:Performed By: #### AMM #### [facility] [address] [place] [address] Dr. Ibis Acevedo #0.1 103/ulNormal0.0-0.7The [facility] CenterComment on above: Performed By: #### AMM #### [facility] [address] [place] [address] Dr. Ibis Rojasosinophils/100 WBC (Bld)1.9 %Normal0.9-7.0The [facility] Comment on above:Performed By: #### AMM #### [facility] [address] [place] [address] Dr. Ibis Rojasrythrocyte distribution width (RBC) [Ratio]12.7 %Gkkazr56.0-15.0 The [facility] CenterComment on above:Performed By: #### AMM #### [facility] [address] [place] [address] Dr. Ibis JimenezHematocrit (Bld) [Volume fraction]38.1 %Ixfpvh77.0-48.0The [facility] CenterComment on above:Performed By: #### AMM #### [facility] [address] [place] [address] Dr. Ibis JimenezHemoglobin (Bld) [Mass/Vol]12.7 g/tWNpacws15.0-16.0The [facility] CenterComment on above:Performed By: #### AMM #### [facility] [address] [place] [address] Dr. Ibis Soto #0.02 10e3/ulNormal0.00-0.03The [facility] CenterComment on above:Performed By: #### AMM #### [facility] [address] [place] [address] Dr. Ibis Soto %0.3 %Normal0.0-0.5The [facility] CenterComment on above: Performed By: #### AMM #### [facility] [address] [place] [address] Dr. Ibis Monsalve #1.9 103/ulNormal1.2-3.8The [facility] CenterComment on above:Performed By: #### AMM #### [facility] [address] [place] [address] Dr. Ibis Vuongmphocytes/100 WBC (Bld)30.5 %Ubvquj30.5-60.0The [facility] CenterComment on above:Performed By: #### AMM #### [facility] [address] [place] [address] Dr. Ibis NewtonUAL DIFF REQNONormalThe [facility] CenterComment on above: Performed By: #### AMM #### [facility] [address] [place] [address] Dr. Ibis Frank (RBC) [Entitic mass]28.3 leRbeeqw66.7-34.0The [facility] CenterComment on above:Performed By: #### AMM #### [facility] [address] [place] [address] Dr. Ibis Frank (RBC) [Mass/Vol]33.3 g/fKKxozig87.9-35.2The [facility] Hospitalment on above:Performed By: #### AMM #### [facility] [address] [place] [address] Dr. Ibis Frank (RBC) [Entitic vol]85.0 vSKfhebl28.0-99.0The [facility] CenterComment on above:Performed By: #### AMM #### [facility] [address] [place] [address] Dr. Ibis Magallanes #0.3 103/ulNormal0.3-0.8The [facility] CenterComment on above:Performed By: #### AMM #### [facility] [address] [place] [address] Dr. Ibis Barbaocytes/100 WBC (Bld)5.2 %Normal1.7-12.0The [facility] Comment on above:Performed By: #### AMM #### [facility] [address] [place] [address] Dr. Ibis Schultz #3.9 103/ulNormal1.4-6.5The [facility] CenterComment on above:Performed By: #### AMM #### [facility] [address] [place] [address] Dr. Ibis Hiutrophils/100 WBC (Bld)61.8 %Asorgk30.0-75.0The [facility] CenterComment on above:Performed By: #### AMM #### [facility] [address] [place] [address] Dr. Ibis JimenezPlatelet mean volume (Bld) [Entitic vol]9.7 fLNormal9.5-13.5The [facility] CenterComment on above:Performed By: #### AMM #### [facility] [address] [place] [address] Dr. Ibis JimenezPLT255 103/plJfehkt786-963Hrn [facility] CenterComment on above: Performed By: #### AMM #### [facility] [address] [place] [address] Dr. Ibis JimenezRBC4.48 106/ulNormal4.20-5.40The [facility] on above:Performed By: #### AMM #### [facility] [address] [place] [address] Dr. Ibis JimenezWBC6.3 103/ulNormal4.0-11.0The [facility] CenterCompaul [facility] on above: Performed By: #### AMM #### [facility] [address] [place] [address] Dr. Ibis JimenezPREG HCG QUALon 73-40-6839CBBWNKHHF, QUALNegativeNormalNEGATIVE The [facility] CenterComment on above:Performed By: #### MONO #### [facility] [address] [place] [address] Dr. Ibis JimenezCovid-19 PCR (CVDTBH)on 66-37-8951GKQX-CoV-2 (COVID-19) RNA SAURABH+probe Ql (Unsp spec)Not detectedNormalNOT DETECTEDThe [facility] Comment on above:Result Comment: This test is not yet approved or cleared by the [place] FDA. When there are no FDA-approved or cleared tests available, and other criteria are met, FDA can make tests available under an emergency access mechanism called an Emergency Use Authorization (EUA). The EUA for this test is supported by the [place] of Health and Human Service's (HHS's) declaration [...] consistent with SARS-CoV-2.Performed By: #### BMP #### [facility] [address] [address] [address] Ibis JimenezTYPE AND SCREENon 00-41-4355WAQE AND SCREENNegativeNormalThe [facility] CenterComment on above:Performed By: #### BMP #### [facility] [address] [address] [address] Ibis JimenezCovid-19 PCR ([facility])on 17-72-4848PUKK-CoV-2 (COVID-19) RNA SAURABH+probe Ql (Unsp spec)Not detectedNormalNOT DETECTEDThe [facility] Comment on above:Result Comment: This test is not yet approved or cleared by the [place] FDA. When there are no FDA-approved or cleared tests available, and other criteria are met, FDA can make tests available under an emergency access mechanism called an Emergency Use Authorization (EUA). The EUA for this test is supported by the [place] of Health and Human Service's (HHS's) declaration [...] consistent with SARS-CoV-2.Performed By: #### CVDTBH #### [facility] [address] [place] [address] Dr. Ibis JimenezTYPE AND SCREENon 63-37-4192GRKZ AND SCREENNegativeNormalThe [facility] CenterComment on above:Performed By: #### BMP #### [facility] [address] [place] [address] Dr. Ibis JimenezCHLAMYDIA/GONOCOCCUS SAURABH (SWAB/URINE/PAPon 68-97-9099Ebvblnbea trachomatis, NAANegativeNormalNegativeThe [facility] CenterComment on above: Performed By: #### ACET, SALYC #### [facility] [address] [place] [address] Dr. Ibis JimenezNeisseria gonorrhoeae, NAANegativeNormalNegativeThe [facility] CenterComment on above:Performed By: #### ACET, SALYC #### [facility] [address] [place] [address] Dr. Ibis Alexis AUTO DIFFon [id number] #0.0 103/ulNormal0.0-0.1The [facility] CenterComment on above:Performed By: #### CVDTBH #### [facility] [address] [place] [address] Dr. Ibis JimenezBasophils/100 WBC (Bld)0.3 %Normal0.2-2.0The [facility] Comment on above:Performed By: #### CVDTBH #### [facility] [address] [place] [address] Dr. Baumann ChangEO #0.2 103/ulNormal0.0-0.7The [facility] CenterComment on above: Performed By: #### CVDTBH #### [facility] [address] [place] [address] Dr. Ibis Rojasosinophils/100 WBC (Bld)2.5 %Normal0.9-7.0The [facility] Comment on above:Performed By: #### CVDTBH #### [facility] [address] [place] [address] Dr. Ibis Rojasrythrocyte distribution width (RBC) [Ratio]13.0 %Hypinq09.0-15.0 The [facility] CenterComment on above:Performed By: #### CVDTBH #### [facility] [address] [place] [address] Dr. Ibis JimenezHematocrit (Bld) [Volume fraction]38.1 %Gbmabq64.0-48.0The [facility] CenterComment on above:Performed By: #### CVDTBH #### [facility] [address] [place] [address] Dr. Ibis JimenezHemoglobin (Bld) [Mass/Vol]12.8 g/iOUrkgou69.0-16.0The [facility] CenterComment on above:Performed By: #### CVDTBH #### [facility] [address] [place] [address] Dr. Ibis Soto #0.02 10e3/ulNormal0.00-0.03The [facility] CenterComment on above:Performed By: #### CVDTBH #### [facility] [address] [place] [address] Dr. Ibis Soto %0.3 %Normal0.0-0.5The [facility] CenterComment on above: Performed By: #### CVDTBH #### [facility] [address] [place] [address] Dr. Ibis BrennerH #1.5 103/ulNormal1.2-3.8The [facility] CenterComment on above:Performed By: #### CVDTBH #### [facility] [address] [place] [address] Dr. Ibis Vuongmphocytes/100 WBC (Bld)22.5 %Wpgiyg50.5-60.0The [facility] CenterComment on above:Performed By: #### CVDTBH #### [facility] [address] [place] [address] Dr. Ibis Viera DIFF REQNONormalThe [facility] CenterComment on above: Performed By: #### CVDTBH #### [facility] [address] [place] [address] Dr. Ibis Frank (RBC) [Entitic mass]28.6 chDxjiqo92.7-34.0The [facility] CenterComment on above:Performed By: #### CVDTBH #### [facility] [address] [place] [address] Dr. Ibis Frank (RBC) [Mass/Vol]33.6 g/gMAyzqea80.9-35.2The [facility] CenterComment on above:Performed By: #### CVDTBH #### [facility] [address] [place] [address] Dr. Ibis Dan (RBC) [Entitic vol]85.0 gBCghrha92.0-99.0The [facility] CenterComment on above:Performed By: #### CVDTBH #### [facility] [address] [place] [address] Dr. Ibis Magallanes #0.4 103/ulNormal0.3-0.8The [facility] CenterComment on above:Performed By: #### CVDTBH #### [facility] [address] [place] [address] Dr. Ibis Barbaocytes/100 WBC (Bld)6.3 %Normal1.7-12.0The [facility] Comment on above:Performed By: #### CVDTBH #### [facility] [address] [place] [address] Dr. Ibis Schultz #4.6 103/ulNormal1.4-6.5The [facility] CenterComment on above:Performed By: #### CVDTBH #### [facility] [address] [place] [address] Dr. Ibis Hiutrophils/100 WBC (Bld)68.1 %Ebxmtq44.0-75.0The [facility] Hospitalment on above:Performed By: #### CVDTBH #### [facility] [address] [place] [address] Dr. Ibis JimenezPlatelet mean volume (Bld) [Entitic vol]9.8 fLNormal9.5-13.5The [facility] CenterComment on above:Performed By: #### CVDTBH #### [facility] [address] [place] [address] Dr. Ibis JimenezPLT243 103/unCrlbhv092-010[facility] on above: Performed By: #### CVDTBH #### [facility] [address] [place] [address] Dr. Ibis JimenezRBC4.48 106/ulNormal4.20-5.40The [facility] on above:Performed By: #### CVDTBH #### [facility] [address] [place] [address] Dr. Ibis JimenezWBC6.7 103/ulNormal4.0-11.0The [facility] on above: Performed By: #### CVDTBH #### [facility] [address] [place] [address] Dr. Ibis JimenezCT ABD/[facility]LVIS [facility] 90-[facility]-2681KK ABD/PELVIS WO CONTECHNIQUE: CT abdomen and pelvis. [...] Electronically authenticated by: NELI COTTO Date: 2021-08-14 18:00[facility] URINE PROFILEon 27-55-5442Lztnbtkzr Ql (U)SMALLAbnormal NEGATIVECleveland Clinic Marymount HospitalComment on above:Performed By: #### BMP #### [facility] [address] [place] [address] Dr. Ibis Sage (U)CLEARNormalCLEARCleveland Clinic Marymount HospitalComment on above: Performed By: #### BMP #### [facility] [address] [place] [address] Dr. Ibis Rivera (U)YELLOWNormalYELLOWCleveland Clinic Marymount HospitalComment on above: Performed By: #### BMP #### [facility] [address] [place] [address] Dr. Ibis Chang micrscopic examination will be performed if indicated. NormalCleveland Clinic Marymount HospitalComment on above:Performed By: #### BMP #### [facility] [address] [place] [address] Dr. Ibis JimenezGlucose Ql (U)NegativeNormalNEGATIVECleveland Clinic Marymount HospitalComment on above:Performed By: #### BMP #### [facility] [address] [place] [address] Dr. Ibis JimenezHemoglobin Ql (U)SMALLAbnormalNEGATIVECleveland Clinic Marymount Hospital Comment on above:Performed By: #### BMP #### [facility] [address] [address] [address] Ibis Baumann Ql (U)TRACEAbnormalNEGATIVEThe [facility] HospitalComment on above:Performed By: #### BMP #### [facility] [address] [place] [address] Dr. Ibis JimenezLEUKOCYTESNegativeNormalNEGATIVEThe [facility] HospitalComment on above:Performed By: #### BMP #### [facility] [address] [address] [address] Ibis Avalostrite Ql (U)NegativeNormalNEGATIVEThe [facility] HospitalComment on above:Performed By: #### BMP #### [facility] [address] [place] [address] Dr. Ibis JimenezpH (U)5.5 [pH]Normal5-9The [facility] CenterComment on above: Performed By: #### BMP #### [facility] [address] [place] [address] Dr. Ibis JimenezSPEC GRAVITY>=1.838Uaoivoik3.005-<=1.025The [facility] on above:Performed By: #### BMP #### [facility] [address] [place] [address] Dr. Ibis Quintanilla PROTEINTRACENormalNEGATIVE/ TRACEThe [facility] CenterComment on above:Performed By: #### BMP #### [facility] [address] [place] [address] Dr. Ibis Curtis MICRO INDINDICATEDNormalThe Seth HospitalComment on above: Performed By: #### BMP #### [facility] [address] [place] [address] Dr. Ibis Lorenzbilinogen Qn (U)1.0 {Dinorah'U}/dLNormal0.2 - 1.0The [facility] CenterComment on above:Performed By: #### BMP #### [facility] [address] [place] [address] Dr. Ibis JimenezPREGNANCY URon 27-57-5816JXMSHGDZW, QUALNegativeNormalNEGATIVEThe [facility] CenterComment on above:Performed By: #### BMP #### [facility] [address] [address] [address] Ibis ChristinaF CHEM 8 (BAS METB)on 05-55-2123Vafcn gap [Moles/Vol]15.3 mmol/LNormalThe [facility] CenterComment on above:Performed By: #### BMP #### [facility] [address] [place] [address] Dr. Ibis JimenezCalcium [Mass/Vol]8.4 mg/dLCritically low8.5-10.1The [facility] CenterComment on above:Performed By: #### BMP #### [facility] [address] [place] [address] Dr. Ibis JimenezChloride [Moles/Vol]106 mmol/FLqwpfg03-634Vsb [facility] Comment on above:Performed By: #### BMP #### [facility] [address] [place] [address] Dr. Ibis JimenezCO2 [Moles/Vol]22.3 mmol/DIsscob79.0-32.0The [facility] Comment on above:Performed By: #### BMP #### [facility] [address] [place] [address] Dr. Ibis JimenezCreatinine [Mass/Vol]0.75 mg/dLNormal0.55-1.02The [facility] CenterComment on above:Performed By: #### BMP #### [facility] [address] [place] [address] Dr. Ibis RojasGFR-AF NORWEGIAN>60Normal>=60The [facility] CenterComment on above:Performed By: #### BMP #### [facility] [address] [place] [address] Dr. Ibis RojasGFR-NON AF NORWEGIAN>60Normal>=60The [facility] CenterComment on above:Performed By: #### BMP #### [facility] [facility] [address] [place] [address] Dr. Ibis JimenezGlucose [Mass/Vol]107 mg/dLCritically gbhq56-122Pim [facility] CenterComment on above:Performed By: #### BMP #### [facility] [address] [address] [address] Ibis JimenezPotassium [Moles/Vol]3.6 mmol/LNormal3.5-5.1[facility] Comment on above:Performed By: #### BMP #### [facility] [address] [address] [address] Ibis Potterdium [Moles/Vol]140 mmol/CXuydco662-833Vcp [facility] Comment on above:Performed By: #### BMP #### [facility] [address] [address] [address] Ibis JimenezUrea nitrogen [Mass/Vol]13.0 mg/dLNormal7.0-18.0[facility] HospitalComment on above:Performed By: #### BMP #### [facility] [address] [address] [address] Ibis Lama nitrogen/Creatinine [Mass ratio]17.3 mg/mgNoPremier Health Atrium Medical CenterComment on above:Performed By: #### BMP #### [facility] [address] [place] [address] Dr. Ibis CAINon [id number]JFYM SEEN [facility] HospitalCompaul [facility] on above:Performed By: #### BMP #### [facility] [address] [address] [address] Ibis Pettit identified Cx Nom (U)NOT INDICATEDNoPremier Health Atrium Medical CenterCompaul oliver memorial [facility] on above:Performed By: #### BMP #### [facility] [address] [address] [address] Ibis Baron SEENNormalNONE SEENCleveland Clinic Marymount HospitalCompaul oliver memorial hospital on above:Performed By: #### BMP #### [facility] [address] [address] [address] Ibis Oviedo LM Nom (Urine sed)NONE SEENNormalNONE SEENCleveland Clinic Marymount HospitalCompaul oliver memorial hospital on above:Performed By: #### BMP #### [facility] [address] [address] [address] Baumann ChangEpithelial cells LM Ql (Urine sed)MANYAbnormalNONE SEEN /RAREThe [facility] CenterCompaul oliver memorial [facility] on above:Performed By: #### BMP #### [facility] [address] [address] [address] Ibis GallegosCOUSSMALLAbnormalNONE SEENThe [facility] CenterCompaul [facility] memorial [facility] on above:Performed By: #### BMP #### [facility] [address] [address] [address] Ibis JimenezTqfuiLGK5-4Uenkoncc7-5Sls [facility] CenterCompaul [facility] on above:Performed By: #### BMP #### [facility] [address] [address] [address] Ibis JimenezWBC2-5AbnormalNONE SEENThe [facility] on above: Performed By: #### BMP #### [facility] [address] [address] [address] Ibis JimenezMARY [facility] Auto DifferentialOrdered By: Keven Ching on 12-24-2020 Absolute Eos #0.44[facility] CenterCrystalGenomics Phone: absolute Immature Granulocyte0.05[facility] CenterCrystalGenomics Phone: absolute Lymph #2.48[facility] CenterCrystalGenomics Phone: absolute Lake #0.55[facility] CenterCrystalGenomics Phone: basophils (Bld) [#/Vol]10*3/uLKettering Health – Soin Medical CenterCrystalGenomics Phone: basophils/100 WBC (Bld)0 %0 - 2 %The[employer]MD Phone: differential TypeNOT REPORTEDKettering Health – Soin Medical CenterCrystalGenomics Phone: eosinophils/100 WBC (Bld)5 %High1 - 4 %[employer] Phone: Hematocrit (Bld) [Volume fraction]37.4 %36.3 - 47.1 % [employer] Phone: Hemoglobin.gastrointestinal spec 1 Ql (Stl)12.3 g/dL 11.9 - 15.1 g/dLKettering Health – Soin Medical CenterCrystalGenomics Phone: Immature granulocytes/100 WBC (Bld)1 %Pmnq5RfqndCrystalGenomics Phone: Interpretation and review of laboratory results AbnormalKettering Health – Soin Medical CenterCrystalGenomics Phone: Lymphocytes/100 WBC (Bld)30 %24 - 43 %[employer]MD Phone: MCH (RBC) [Entitic mass]28.5 pg25.2 - 33.5 pgKettering Health – Soin Medical CenterCrystalGenomics Phone: MCHC (RBC) [Mass/Vol]32.9 g/dL28.4 - 34.8 g/dLKettering Health – Soin Medical CenterCrystalGenomics Phone: MCV (RBC) [Entitic vol]86.8 fL82.6 - 102.9 fLKettering Health – Soin Medical CenterCrystalGenomics Phone: Monocytes/100 WBC (Bld)7 %3 - 12 %[employer] Phone: NRBC Automated0.00.0 per 100 WBCKettering Health – Soin Medical CenterCrystalGenomics Phone: platelet distribution width (Bld) [Ratio]12.7 %11.8 - 14.4 %The[employer]MD Phone: Tlatelet EstimateNOT REPORTEDKettering Health – Soin Medical CenterCrystalGenomics Phone: Dlatelet mean volume (Bld) [Entitic vol]9.4 fL8.1 - 13.5 fLKettering Health – Soin Medical CenterCrystalGenomics Phone: Platelets (Bld) [#/Vol]252 10*3/uLKettering Health – Soin Medical CenterCrystalGenomics Phone: RBC (Bld) [#/Vol]4.31 10*6/uL3.95 - 5.11 m/[employer] Phone: RBC (Bld) [#/Vol]NOT REPORTEDMercy Health Allen Hospital [employer] Work Phone: segmented neutrophils/100 WBC (Bld)57 %36 - 65 %[facility] Work Phone: segs Absolute4.78[facility] [employer] Work Phone: WBC (Bld) [#/Vol]8.3 10*3/uLMercy Health Allen Hospital [facility] Work Phone: WBC (Bld) [#/Vol]NOT REPORTEDMercy Health Allen Hospital [facility] Work Phone: [facility] Work Phone: cBC with Diffon 26-21-2830Scy. Basophil<0.03Normal 0.00-0.20MerOur Lady of Mercy Hospital - Anderson HospitalComment on above:Performed By: #### CMPX, CDP #### [address] [place], [facility]83 [employer] Operator: Wendy Elder.Imm.Granulocyte0.05 k/uLNormal0.00-0.30[facility] HospitalComment on above:Performed By: #### CMPX, CDP #### [address] [place] [address] [employer] Operator: Wendy Elder.Neutrophil (Seg)4.78 k/uLNormal1.50-8.10[facility] HospitalComment on above:Performed By: #### CMPX, CDP #### [address] [place], [place] [address]83 [employer] Operator: Souleymane Pineda MDBasophils/100 WBC (Bld)0 %Normal0-2Mer[facility]ile HospitalComment on above:Performed By: #### CMPX, CDP #### [address] [place], [place] [address]83 [employer] Operator: Souleymane Pineda MDEosinophils (Bld) [#/Vol]0.44 10*3/uLNormal 0.00-0.44[facility] HospitalComment on above:Performed By: #### CMPX, CDP #### [address] [place] [address] [employer] Operator: Souleymane Pineda MDEosinophils/100 WBC (Bld)5 %High1-4[facility] HospitalComment on above:Performed By: #### CMPX, CDP #### [address] [place] [address] [employer] Operator: Souleymane Pineda MDErythrocyte distribution width (RBC) [Ratio]12.7 % Gdhpfo17.8-14.4[facility] HospitalComment on above:Performed By: #### CMPX, CDP #### [address] [place] [address] [employer] Operator: Souleymane Pineda MDHematocrit (Bld) [Volume fraction]37.4 %Normal 36.3-47.1Mercy Gile HospitalComment on above:Performed By: #### CMPX, CDP #### [address] [place] [id number] [employer] Operator: Souleymane Pineda MDHemoglobin (Bld) [Mass/Vol]12.3 g/dLNormal 11.9-15.1MMarymount Hospital HospitalComment on above:Performed By: #### CMPX, CDP #### [address] [place] [address] [employer] Operator: Souleymane Pineda MDImmature granulocytes/100 WBC (Bld)1 %Svyl9CulviSumma Health Akron Campus HospitalComment on above:Performed By: #### CMPX, CDP #### [address] [place] [address] [employer] Operator: Souleymane Pineda MDLymphocytes (Bld) [#/Vol]2.48 10*3/uLNormal 1.10-3.70[facility] HospitalComment on above:Performed By: #### CMPX, CDP #### [address] [place], [place] [address] [employer] Operator: Souleymane Pineda MDLymphocytes/100 WBC (Bld)30 %Dajumk93-18DdlydProvidence HospitalComment on above:Performed By: #### CMPX, CDP #### [address] [place] [address] [employer] Operator: JUNAID ElderCH (RBC) [Entitic mass]28.5 aiEvhaui61.2-33.5 [facility] HospitalComment on above:Performed By: #### CMPX, CDP #### [address] [place], [place] [address]83 [employer] Operator: LASHAWN ElderC (RBC) [Mass/Vol]32.9 g/pLVcpatn79.4-34.8[facility] HospitalComment on above:Performed By: #### CMPX, CDP #### [address] [place], [place] [address] [employer] Operator: JUNAID ElderCV (RBC) [Entitic vol]86.8 hBEhmoke01.6-102.9 [facility] HospitalComment on above:Performed By: #### CMPX, CDP #### [address] [place] [address] [employer] Operator: JUNAID Elderonocytes (Bld) [#/Vol]0.55 10*3/uLNormal0.10-1.20 [facility] HospitalComment on above:Performed By: #### CMPX, CDP #### [address] [place] [address] [employer] Operator: JUNAID Elderonocytes/100 WBC (Bld)7 %Normal3-12[facility] HospitalComment on above:Performed By: #### CMPX, CDP #### [facility] [address] [place] [address] [place] [address] [employer] Operator: Souleymane iPneda MDNeutrophil (Seg)57 %Ustlqd41-17Sgkri [facility]iffin HospitalComment on above:Performed By: #### CMPX, CDP #### [address] [place] [address] [employer] Operator: COURTNEY Elder Automated0.0 per 100 WBCNormal0.0Providence HospitalComment on above:Performed By: #### CMPX, CDP #### [address] [place], [place] [address]83 [employer] Operator: Greta Elder mean volume (Bld) [Entitic vol]9.4 fL Normal8.1-13.5Prov[facility] HospitalComment on above:Performed By: #### CMPX, CDP #### [address] [place], [place] [address] [employer] Operator: Kaylee Elderteyanni (Bld) [#/Vol]252 10*3/nKDzydos412-269 [facility] HospitalComment on above:Performed By: #### CMPX, CDP #### [facility] [address] [place] [address] Dr[address] [place], [place] [id number] [employer] Operator: FRANCISCO ElderBC (Bld) [#/Vol]4.31 10*6/uLNormal3.95-5.11[facility] HospitalComment on above:Performed By: #### CMPX, CDP #### [address] [place], [place] [address]83 [employer] Operator: JESSE ElderBC (Bld) [#/Vol]8.3 10*3/uLNormal3.5-11.3Mercy Gile HospitalComment on above:Performed By: #### CMPX, CDP #### [address] [place], [place] [address]483 [employer] Operator: Amaris Elder Diff PerformedNOT REPORTEDNormalSumma Health Akron Campus HospitalComment on above:Performed By: #### CMPX, CDP #### [address] [place] [address] [employer] Operator: Kaylee Eldertelet CommentNOT REPORTEDNormalSumma Health Akron Campus HospitalComment on above:Performed By: #### CMPX, CDP #### [address] [place], [place] [address] [employer] Operator: SILVIA Elder morphology finding Nom (Bld)NOT REPORTEDNormal [facility] HospitalComment on above:Performed By: #### CMPX, CDP #### [address] [place], [place] [address]83 [employer] Operator: RENETTA Elder MorphologyNOT REPORTEDNormalSumma Health Akron Campus HospitalComment on above:Performed By: #### CMPX, CDP #### [address] [place], [place] [address] [employer] Operator: BEE Elder HEAD WO CONTRASTon [id number] HEAD WO CONTRASTEXAMINATION: CT OF THE HEAD [...] the orbits demonstrate no acute abnormality. SINUSES: Gbpm-dk-xqbikdja paranasal sinus mucosal thickening. SOFT TISSUES/SKULL: No acute abnormality of the visualized skull or soft tissues. IMPRESSION: No acute intracranial abnormality. Interpreted by: Edwin Bentley MD Signed by: Edwin Bentley MD 12/24/20 Final resultNormalProvidence HospitalCT Head WO ContrastOrdered By: Keven Ching on [id number] acute intracranial abnormality.TherapeuticsMD Phone: eXAMINATION: CT OF THE HEAD WITHOUT [...] of theorbits demonstrate no acute abnormality. SINUSES: Zrhb-xz-prykoupz paranasal sinus mucosal thickening. SOFT TISSUES/SKULL: No acute abnormality of the visualized skull or soft tissues.TherapeuticsMD Phone: eruben [facility] Incoming Radiant Results From [employer] - 12/24/2020 8:49 PM EDT EXAMINATION: CT [...] the orbits demonstrate no acute abnormality. SINUSES: Stxm-tq-uijkwrir paranasal sinus mucosal thickening. SOFT TISSUES/SKULL: No acute abnormality of the visualized skull or soft tissues. IMPRESSION: No acute intracranial abnormality. [facility] Work Phone: [facility] Work Phone: comp Metabolic Pr/rfx MGon 82-54-7524Cziloxpdc [Mass/Vol]mg/dLLow0.3-1.2MMarymount Hospital HospitalComment on above:Performed By: #### AGUSTÍN, CDP #### [address] [place] [address] [employer] Operator: Souleymane Pineda MD(cont.)[facility]rus HospitalComment on above:Result Comment: Average GFR for 20-29 years old: 116 mL/min/1.73sq m Chronic Kidney Disease: <60 mL/min/1.73sq m Kidney failure: <15 mL/min/1.73sq m eGFR calculated using average adult body mass. Additional eGFR calculator available at: http://www.Grand Rounds.DevonWay/multiple_crcl_2012.htmPerformed By: #### AGUSTÍN, CDP #### [address] [place] [address] [employer] Operator: Souleymane Pineda MDAlbumin [Mass/Vol]4.0 g/dLNormal3.5-5.2MSamaritan North Health CenterComment on above:Performed By: #### KEKEX, CDP #### [address] [place] [address] [employer] Operator: Souleymane Sturtz, MDAlbumin/Glob Ratio1.8Zouknq6.0-2.5MerOur Lady of Mercy Hospital - Anderson HospitalComment on above:Performed By: #### CMPX, CDP #### [address] [place], [place] [address] [employer] Operator: Jennifer Elderkaline Phos90 U/TUelkkh50-372ZlsblProvidence HospitalComment on above:Performed By: #### CMPX, CDP #### [facility] [address] [place] [address] [place] [address] [employer] Operator: Souleymane Pineda MDALT [Catalytic activity/Vol]40 U/LHigh5-33MerYale [facility] Children's HospitalComment on above:Performed By: #### CMPX, CDP #### [address] [place] [address] [employer] Operator: Souleymane Pineda MDAnion gap [Moles/Vol]11 mmol/LNormal9-17[facility] HospitalComment on above:Performed By: #### CMPX, CDP #### [address] [place] [address] [employer] Operator: Souleymane Pineda MDAST [Catalytic activity/Vol]19 U/LNormal<32MerYale New Haven Children's HospitalComment on above:Performed By: #### CMPX, CDP #### [facility] [address] [place] [address] [place] [address] [employer] Operator: Souleymane Pineda MDBUN/CRE Xktnx93Bobxiz5-29Pyxlk [facility] Comment on above:Performed By: #### CMPX, CDP #### [facility] [address] [place] [address] [place] [address] [employer] Operator: Souleymane Pineda MDCalcium [Mass/Vol]8.9 mg/dLNormal8.6-10.4[facility] HospitalComment on above:Performed By: #### CMPX, CDP #### [address] [place] [address] [employer] Operator: CLARK Elderhloride [Moles/Vol]104 mmol/GBenzxc55-293Jeegm [facility] HospitalComment on above:Performed By: #### CMPX, CDP #### [address] [place], [place] [address]483 [employer] Operator: Souleymane Pineda MDCO2 [Moles/Vol]24 mmol/JSpygiw96-07Qinor [facility] HospitalComment on above:Performed By: #### CMPX, CDP #### [address] [place], [place] [address] [employer] Operator: CLARK Elderreatinine [Mass/Vol]0.60 mg/dLNormal0.50-0.90 [facility] HospitalComment on above:Performed By: #### CMPX, CDP #### [address] [place], [place] [address]83 [employer] Operator: Souleymane Pineda MDGFR, Amer>60Normal>60[facility] Centercy [facility] Comment on above:Performed By: #### CMPX, CDP #### [address] [place], [place] [address] [employer] Operator: Souleymane Pineda MDGFR,non Amer>60Normal>60[facility] HospitalComment on above:Performed By: #### CMPX, CDP #### [address] [place] [address] [employer] Operator: Souleymane Pineda MDGlucose [Mass/Vol]91 mg/yKLzytyd42-57Dokpf Gile HospitalComment on above:Performed By: #### CMPX, CDP #### [address] [place], [place] [address] [employer] Operator: Souleymane Pineda MDPotassium [Moles/Vol]4.0 mmol/LNormal3.7-5.3MMarymount Hospital HospitalComment on above:Performed By: #### CMPX, CDP #### [address] [place] [address] [employer] Operator: MAGED Elderrotein [Mass/Vol]6.7 g/dLNormal6.4-8.3MSamaritan North Health CenterComment on above:Performed By: #### CMPX, CDP #### [address] [place] [address] [employer] Operator: ALEX Elderodium [Moles/Vol]139 mmol/DBkftvm970-709XdborProvidence HospitalComment on above:Performed By: #### CMPX, CDP #### [address] [place] [address] [employer] Operator: ALEX Eldertaging:NormalProvidence HospitalComment on above:Result Comment: Stage 1: Some kidney damage normal GFR Stage 2: Mild kidney damage GFR 60-89 Stage 3: Moderate kidney damage GFR 30-59 Stage 4: Severe kidney damage GFR 15-29 Stage 5: Severe kidney damage GFR <15 ESRD - chronic treatment by dialysis or transplantPerformed By: #### CMPX, CDP #### [address] [place] [address] [employer] Operator: Souleymane Pineda MDUrea nitrogen [Mass/Vol]9 mg/dLNormal6-20Prov[facility] HospitalComment on above:Performed By: #### CMPX, CDP #### [address] [place] [address] [employer] Operator: CLARK Elderomprehensive Metabolic Panel w/ Reflex to MG Ordered By: Keven Ching on [id number] [Mass/Vol]4 g/dL3.5 - 5.2 g/dL [facility] Work Phone: albumin/Globulin [Mass ratio]1.5 {ratio}[facility] Work Phone: JLP (Bld) [Catalytic activity/Vol]90 U/L35 - 104 U/L [facility] [employer] Work Phone: WLT [Catalytic activity/Vol]40 U/LHigh5 - 33 U/LMaultman orrville hospitaly [employer] Work Phone: Xnion gap [Moles/Vol]11 mmol/L9 - 17 mmol/LMaultman orrville hospitaly [employer] Work Phone: KST [Catalytic activity/Vol]19 U/L<32[facility] [employer] Work Phone: Oilirubin [Mass/Vol]mg/dLLow0.3 - 1.2 mg/dLMercy Health Allen Hospital [employer] Work Phone: Jalcium [Mass/Vol]8.9 mg/dL8.6 - 10.4 mg/dLMercy Health Allen Hospital [employer] Work Phone: Whloride [Moles/Vol]104 mmol/L98 - 107 mmol/LMohiohealth hardin memorial hospital [employer] Work Phone: PO2 [Moles/Vol]24 mmol/L20 - 31 mmol/LMohiohealth hardin memorial hospital [employer] Work Phone: creatinine [Mass/Vol]0.6 mg/dL0.50 - 0.90 mg/dLMercy Health Allen Hospital [employer] Phone: Free PSA/Total PSA [Mass fraction]6.7 g/dL6.4 - 8.3 g/dLMercy Health Allen Hospital [employer] Work Phone: GFR >60>60 mL/minMercy Health Allen Hospital [employer] Work Phone: GFR Non->60>60 mL/minMercy Health Allen Hospital [employer] Work Phone: Glucose [Mass/Vol]91 mg/dL70 - 99 mg/dLMercy Health Allen Hospital [employer] Work Phone: Interpretation and review of laboratory results AbnormalMercy Health Allen Hospital [employer] Work Phone: potassium [Moles/Vol]4.0 mmol/L3.7 - 5.3 mmol/LMohiohealth hardin memorial hospital [employer] Phone: sodium [Moles/Vol]139 mmol/L135 - 144 mmol/LMohiohealth hardin memorial hospital [employer] Work Phone: Urea nitrogen (BldV) [Mass/Vol]9 mg/dL6 - 20 mg/dL [facility] [employer] Phone: Urea nitrogen/Creatinine (Bld) [Mass ratio]15[facility] CenterMindscape Work Phone: [facility] [employer] Phone: laboratory - Chemistry and Chemistry - challenge Ordered By: Keven Ching on 13-69-9970MHM/1.73 sq M.predicted MDRD (S/P/Bld) [Vol rate/Area][facility] CenterSant[facility] Phone: comment on above:Average GFR for 20-29 years old: 116 mL/min/1.73sq m Chronic Kidney Disease: <60 mL/min/1.73sq m Kidney failure: <15 mL/min/1.73sq m eGFR calculated using average adult body mass. Additional eGFR calculator available at: http://www.ShopGo/multiple_crcl_2011.htm Stage 1: Some kidney damage normal GFR Stage 2: Mild kidney damage GFR 60-89 Stage 3: Moderate kidney damage GFR 30-59 Stage 4: Severe kidney damage GFR 15-29 Stage 5: Severe kidney damage GFR <15 ESRD - chronic treatment by dialysis or transplant Vital Signs Date TimeVital SignValuePerforming NenfbqyrdSfzsiajb70-72-1457 10:010400Body icyqzn929.9 cmAssumpta PA Semi BIKE ASSEMBLER-MANUFACTURING TECH Work Phone: [facility] HospitalStreemio10-31-2025 10:010400Body mass index (BMI) [Ratio]53.58 kg/y0Nvqgmxeb Fatwireesthela BIKE ASSEMBLER-MANUFACTURING TECH Work Phone: [facility] HospitalStreemio10-31-2025 10:01-0400Body ohwrubiqdgy78.9 [degF]Assumpta [employer] Work Phone: [facility]10-31-2025 10:01-0400Body vvomzz327.55 kgAssumpta Raul HECK-FADY Work Phone: [facility]10-31-2025 10:01-0400Diastolic blood mm[Hg]Assumpta Raul HECK-FADY Work Phone: [address] [place], [place] [address]10-31-2025 10:01-0400Heart rate 112 /minAssumpta Raul SCHMITTN-FADY Work Phone: [facility]10-31-2025 10:01-9141LlZ6% (BldA) [Mass fraction]96 %Assumpta Raul HECK-FADY Work Phone: [facility]10-31-2025 10:01-0400Systolic blood mm[Hg]Assumpta Raul MCCLAIN Work Phone: [facility]10-28-2025 09:30-0400Body yecbno751.9 cmSopal Peña DO Work Phone: [phone] [employer] Pqdcym35-82-7274 09:30-0400Body mass index (BMI) [Ratio]52.49 kg/q1NjsxjbVincent Peña DO Work Phone: [facility] [employer] Ysjdtj54-88-8625 09:30-0400Body kgVincent Peña DO Work Phone: [phone] [employer] Ydvfyu57-72-2674 09:30-0400Diastolic blood owcxwmfx47 mm[Hg]Vincent Peña DO Work Phone: [facility] [employer] Chrzze39-54-5832 09:30-0400Heart rate 79 /minSopal Peña DO Work Phone: [facility] [employer] Gzvcof17-53-3151 09:30-4882OuA0% (BldA) [Mass fraction]99 %Vincent Peña DO Work Phone: [facility] [employer] Mrosga87-24-3628 09:30-0400Systolic blood vqmeaexm936 mm[Hg]Vincent Peña DO Work Phone: [facility]10-21-2025 15:00-0400Body untebl534.9 cmCorine Gold MD Work Phone: [facility]10-21-2025 15:00-0400Body mass index (BMI) [Ratio]52.49 kg/t9MjzdfghCorine Gold MD Work Phone: [phone]10-21-2025 15:00-0400Body .39 [degF]Corine Gold MD Work Phone: [facility]10-21-2025 15:00-0400Body ihvzjo974.01 kgCorine Gold MD Work Phone: [facility]10-21-2025 15:00-0400Diastolic blood xoabszpj57 mm[Hg]Corine Gold MD Work Phone: [facility]10-21-2025 15:00-0400Heart rate 77 /minCorine Gold MD Work Phone: [facility]10-21-2025 15:00-5118DeI3% (BldA) [Mass fraction]94 %Corine Gold MD Work Phone: [facility]10-21-2025 15:00-0400Systolic blood mm[Hg]Corine Gold MD Work Phone: [facility]09-04-2025 14:57-0400Body njylln606.4 cmAyvonne Hart APRN-MANUFACTURING TECH Work Phone: [facility]09-04-2025 14:57-0400Body mass index (BMI) [Ratio]53.75 kg/k6XqmbqheaeMali Hart APRN-MANUFACTURING TECH Work Phone: [facility]09-04-2025 14:57-0400Body ttngozmqqxn06.6 [degF]Mali Hart BIKE ASSEMBLER-MANUFACTURING TECH Work Phone: [facility]09-04-2025 14:57-0400Body .83 kgAledc Hart BIKE ASSEMBLER-MANUFACTURING TECH Work Phone: [facility]09-04-2025 14:57-0400Diastolic blood dkfkdbad33 mm[Hg]Mali Hart BIKE ASSEMBLER-MANUFACTURING TECH Work Phone: [facility]09-04-2025 14:57-0400Heart rate 97 /minAledc Hart BIKE ASSEMBLER-MANUFACTURING TECH Work Phone: [facility]09-04-2025 14:57-4278CeU0% (BldA) [Mass fraction]95 %Mali Hart BIKE ASSEMBLER-MANUFACTURING TECH Work Phone: [facility]09-04-2025 14:57-0400Systolic blood mm[Hg]Mali Hart BIKE ASSEMBLER-MANUFACTURING TECH Work Phone: [facility]07-15-2025 10:33-0400Body mass index (BMI) [Ratio]50.73 kg/p6Apann Roopa DO Work Phone: [facility] CenterElifgolpqz92-74-5905 10:33-0400Body labheb455.79 kgCorey Roopa DO Work Phone: [facility] CenterXuxidlmksq71-95-8599 10:33-0400Diastolic blood gtuzlunu537 mm[Hg]Zay Roopa DO Work Phone: [facility] CenterPqlmpnlwnv55-83-6500 10:33-0400Systolic blood mm[Hg]Zay Roopa DO Work Phone: [facility] CenterVfkxhlzxdc51-01-4989 12:12-0400Diastolic blood mm[Hg]Infusion 5 Work Phone: [facility]06-13-2025 12:12-0400Heart rate97 /min Infusion 5 Work Phone: [facility]06-13-2025 12:12-0400Systolic blood osiwlrei757 mm[Hg]Infusion 5 Work Phone: [facility]06-12-2025 12:24-0400Diastolic blood oggsaglr80 mm[Hg]Infusion 7 Work Phone: [facility]06-12-2025 12:24-0400Heart rate98 /min Infusion 7 Work Phone: [facility]06-12-2025 12:24-0400Systolic blood hyvsnanp708 mm[Hg]Infusion 7 Work Phone: [facility]06-04-2025 15:07-0400Body wjnuot012.4 cmHalima Johns APRN-MANUFACTURING TECH Work Phone: [facility]06-04-2025 15:07-0400Body mass index (BMI) [Ratio]49.76 kg/u1MbsumnHalima Johns APRN-MANUFACTURING TECH Work Phone: [facility]06-04-2025 15:07-0400Body vpiihqojaqy96.01 [degF]Halima Johns APRN-MANUFACTURING TECH Work Phone: [facility]06-04-2025 15:07-0400Body qlikpo698.58 kgHalima Johns APRN-MANUFACTURING TECH Work Phone: [facility]06-04-2025 15:07-0400Diastolic blood mm[Hg]Halima Johns APRN-MANUFACTURING TECH Work Phone: [facility]06-04-2025 15:07-0400Heart rate 102 /minHalima Johns APRN-MANUFACTURING TECH Work Phone: [facility]06-04-2025 15:07-4725YjH9% (BldA) [Mass fraction]99 %Halima Johns APRN-MANUFACTURING TECH Work Phone: [facility]06-04-2025 15:07-0400Systolic blood louyjaay120 mm[Hg]Halima Mirandaler BIKE ASSEMBLER-MANUFACTURING TECH Work Phone: [facility]05-12-2025 08:40-0400Body mass index (BMI) [Ratio]47.2 kg/x5Mlwoo Roopa DO Work Phone: [facility] CenterLuujyeskaf51-20-3725 08:40-0400Body ivuijw545.31 kgCorevikas Roopa DO Work Phone: [facility] CenterZjgpsirpvv79-38-3147 08:40-0400Diastolic blood yqxqxqeq67 mm[Hg]Zay Greero DO Work Phone: [facility] CenterQrjmuqpckd68-54-8370 08:40-0400Systolic blood bzdqouor913 mm[Hg]Zay Greero DO Work Phone: [facility] CenterZbipleinjg01-82-3311 09:43-0400Body mass index (BMI) [Ratio]46.09 kg/c2Kvnzrwvsharad Cotton DO Work Phone: [facility]04-01-2025 09:43-0400Body lpiuopiezfl14.81 [degF]Rajinder Poncemimi DO Work Phone: [facility]04-01-2025 09:43-0400Body wbjflu340.05 kgMicsharad Cotton DO Work Phone: [facility]04-01-2025 09:43-0400Diastolic blood ltqcrjid99 mm[Hg]Rajinder Cotton DO Work Phone: [facility]04-01-2025 09:43-0400Heart rate 106 /minMicdeysipradeep Lula DO Work Phone: [facility]04-01-2025 09:43-5835LaM8% (BldA) [Mass fraction]98 %Rajinder Krismimi DO Work Phone: [facility]04-01-2025 09:43-0400Systolic blood gevvifrz804 mm[Hg]Rajinder Cotton DO Work Phone: [facility]03-26-2025 08:46-0400Body vpytcl546.4 cmCourmagdielyung Ye PA Work Phone: [facility]03-26-2025 08:46-0400Body mass index (BMI) [Ratio]46.36 kg/m3Guybyjgg Ye PA Work Phone: [facility]03-26-2025 08:46-0400Body gqceafvhidd69.1 [degF]Svetlana Ye PA Work Phone: [phone]03-26-2025 08:46-0400Body zmwqiy401.68 kgCogisel Wallacene PA Work Phone: [phone]03-26-2025 08:46-0400Diastolic blood ddggimas57 mm[Hg]Svetlana Wallacene PA Work Phone: [facility]03-26-2025 08:46-0400Heart rate 98 /minCourtyung Wallacene PA Work Phone: [facility]03-26-2025 08:46-0400 Respiratory rate18 /minCourtney Ye PA Work Phone: [facility]03-26-2025 08:46-0674JgL6% (BldA) [Mass fraction]98 %Svetlana Ye PA Work Phone: [facility]03-26-2025 08:46-0400Systolic blood fowmdagr178 mm[Hg]Svetlana Wallacene PA Work Phone: [facility]03-13-2025 12:20-0400Diastolic blood zrgeolji19 mm[Hg]Infusion 7 Work Phone: [facility]03-13-2025 12:20-0400Heart rate90 /min Infusion 7 Work Phone: [facility]03-13-2025 12:20-0400Systolic blood vuzvlnpl083 mm[Hg]Infusion 7 Work Phone: [facility]03-06-2025 13:06-0500Body zmdvji931.9 cmCorine Gold MD Work Phone: [facility]03-06-2025 13:06-0500Body mass index (BMI) [Ratio]44.01 kg/m9XgwvuirCorine Gold MD Work Phone: [facility]03-06-2025 13:06-0500Body fiwodptyeas47.7 [degF]Corine Gold MD Work Phone: [facility]03-06-2025 13:06-0500Body otvlgv402.6 kgCorine Gold MD Work Phone: [facility]03-06-2025 13:06-0500Diastolic blood mm[Hg]Corine Gold MD Work Phone: [facility]03-06-2025 13:06-0500Heart rate 91 /minCorine Gold MD Work Phone: [facility]03-06-2025 13:06-8795HeG3% (BldA) [Mass fraction]98 %Corine Gold MD Work Phone: [facility]03-06-2025 13:06-0500Systolic blood nzignmya846 mm[Hg]Corine Gold MD Work Phone: [facility]03-05-2025 09:45-0500Body mass index (BMI) [Ratio]44.58 kg/j8HqqlxufeSvetlana HERNANDEZ Work Phone: [facility]03-05-2025 09:45-0500Body rhfbjyfsxre07.9 [degF]Svetlana HERNANDEZ Work Phone: [facility]03-05-2025 09:45-0500Body .96 kgCogisel HERNANDEZ Work Phone: [facility]03-05-2025 09:45-0500Diastolic blood ezicblfx10 mm[Hg]Svetlana Ye PA Work Phone: [phone] CompanyFreshT Sjnblt64-52-8096 09:45-0500Heart rate 99 /minCourtney Ye PA Work Phone: [phone] [place], [place] [address]Fresh[place] Hhkzki98-73-8153 09:45-7825ReQ6% (BldA) [Mass fraction]96 %Svetlana Ye PA Work Phone: [phone] [place], [place] [address]Fresh[place] Xdwclw79-09-6294 09:45-0500Systolic blood zysokwss431 mm[Hg]Svetlana Ye PA Work Phone: [phone] [place], [place] [address]Fresh[place] Klqrgs88-84-2272 09:16-0500Diastolic blood tkffpehs68 mm[Hg]Svetlana Ye PA Work Phone: 1(763)2-[address] [place], [place] [address]Fresh[employer] Szpfus02-25-0229 09:16-0500Heart rate 88 /minCourtney Ye PA Work Phone: [phone] [place] [address] [place] Fxuqsp62-27-8497 09:16-0500 Respiratory rate16 /minCourtney Ye PA Work Phone: [address]198-[address] [place], [place] [address]Fresh[employer] Eualyu48-67-5408 09:16-4946HyH2% (BldA) [Mass fraction]96 %Svetlana Ye PA Work Phone: 1(750)9-[address] [place], [place] [address]Fresh[place] Qdzxsw01-76-9636 09:16-0500Systolic blood qtvqjecm685 mm[Hg]Svetlana Ye PA Work Phone: [phone])8-[address] [place], [place] [address]Fresh[employer] Hinxfo01-56-4441 09:01-0500Body sbiksg665.9 cmCourtney Ye PA Work Phone: 1([phone])6-[address] [place], [place] [address]Fresh[employer] Mqsilq58-07-6867 09:01-0500Body mass index (BMI) [Ratio]45.83 kg/f7Dxfxhblm Ye PA Work Phone: 1(100)6-[address] [place], [place] [address]Fresh[employer] Rqqhel00-09-5480 09:01-0500Body ocxhel432.95 kgCourtney Ye PA Work Phone: 1(763)686-[address] [place], [place] 2561102-19-2025 11:09-0500Body okvmodtgelc85.5 [degF]Milad Hernandez MD Work Phone: 1(477)8-[address] [place], [place] 2561102-19-2025 11:09-0500Diastolic blood mynjbhuo20 mm[Hg]Milad Hernandez MD Work Phone: 1(690)0-[address] [place], [place] 2561102-19-2025 11:09-0500Heart rate 90 /minMilad Hernandez MD Work Phone: 1(916)1-[address] [place], [place] 2561102-19-2025 11:09-0500 Respiratory rate18 /minMilad Hernandez MD Work Phone: 1(159)9-[address] [place], [place] 2561102-19-2025 11:09-3464ByT7% (BldA) [Mass fraction]95 %Milad Hernandez MD Work Phone: 1(312)6-[address] [place], [place] 2561102-19-2025 11:09-0500Systolic blood tvmiwvgf416 mm[Hg]Milad Hernandez MD Work Phone: 1(876)0-[address] [place], [place] 2561102-19-2025 05:25-0500Body mass index (BMI) [Ratio]47.4 kg/m2Milad Hernandez MD Work Phone: [phone]02-19-2025 05:25-0500Body tiwkfj317.8 kgMilad Hernandez MD Work Phone: [phone]02-11-2025 13:07-0500Body mass index (BMI) [Ratio]45.73 kg/q0Htudu Roopa DO Work Phone: [facility] CenterPfrtlqwgoj58-70-5450 13:07-0500Body gpuvur544.77 kgCorey Roopa DO Work Phone: [facility] CenterHrdayvtfzv08-61-1565 13:07-0500Diastolic blood rrhimgee79 mm[Hg]Zay Roopa DO Work Phone: [facility] CenterFocgebdnbd97-94-7705 13:07-0500Systolic blood yayirpke930 mm[Hg]Zay Blas DO Work Phone: [facility] CenterTbxtlbgatd69-95-2132 15:21-0500Body temperature 98.2 [degF][address]02-03-2025 15:21-0500Diastolic blood lrbtaenb00 mm[Hg][address]02-03-2025 15:21-0500Heart rate86 /min[address]02-03-2025 15:21-0500Respiratory rate20 /min [address]02-03-2025 15:21-8674WwH7% (BldA) [Mass fraction] 99 %[address]02-03-2025 15:21-0500Systolic blood pressure 132 mm[Hg][address]02-03-2025 14:58-0500Body .[address]02-03-2025 14:58-0500Body mass index (BMI) [Ratio] 45.57 kg/o8Cpjlf[address]02-03-2025 14:58-0500Body qjmenr226.[address]01-29-2025 12:15-0500Body ibfwun366.9 cmSopal Peña DO Work Phone: [facility]01-29-2025 12:15-0500Body mass index (BMI) [Ratio]45.54 kg/g6LfgsscVincent Peña DO Work Phone: [facility]01-29-2025 12:15-0500Body .32 kgVincent Peña DO Work Phone: [facility]01-29-2025 12:15-0500Diastolic blood mm[Hg]Vincent Peña DO Work Phone: [facility]01-29-2025 12:15-0500Heart rate 97 /minSopal Peña DO Work Phone: [facility]01-29-2025 12:15-1911HaV7% (BldA) [Mass fraction]98 %Vincent Peña DO Work Phone: [facility]01-29-2025 12:15-0500Systolic blood molgwmrb003 mm[Hg]Vincent Peña DO Work Phone: [facility]01-29-2025 12:07-0500Body pmdfix848.[address] [place], [place] 8752501-29-2025 12:07-0500Body mass index (BMI) [Ratio]45.54 kg/m2Wlc [address] [place], [place] [address]752501-29-2025 12:07-0500Body crszgu579.[address] [place], [place] [address]752501-27-2025 11:03-0500Body ussosg473.9 Elena Martinez MD Work Phone: [phone]14[facility]01-27-2025 11:03-0500Body mass index (BMI) [Ratio]45.69 kg/i4YyqytbjkMundo Martinez MD Work Phone: [phone]01-27-2025 11:03-0500Body huunlizccnk34.9 [degF]Mundo Martinez MD Work Phone: 1(287)[address]01-27-2025 11:03-0500Body xhziqz818.68 kgMundo Martinez MD Work Phone: 1(665)7-[address] [place], [place] [address]1101-27-2025 11:03-0500Heart rate 77 /Hanh Martinez MD Work Phone: [phone]01-27-2025 11:03-3798BhM7% (BldA) [Mass fraction]99 %Mundo Martinez MD Work Phone: [phone]01-15-2025 10:45-0500Body mass index (BMI) [Ratio]45.69 kg/a8Hwtaa Roopa DO Work Phone: [facility] CenterGidnuuxidb61-98-8451 10:45-0500Body kaunbs209.68 kgCorey Roopa DO Work Phone: [facility] CenterAmhiewkrke82-71-8064 10:45-0500Diastolic blood xenzomoj62 mm[Hg]Zay Roopa DO Work Phone: 1(367)[facility] CenterLpmhjftpyr41-17-1349 10:45-0500Systolic blood mpsfvitx627 mm[Hg]Zay Roopa DO Work Phone: 1(060)[facility] [place], [place] [address]Pyhvccgoby11-75-0075 11:25-0500Body mass index (BMI) [Ratio]47.31 kg/t7Llfky Roopa DO Work Phone: 1(588)[facility] [place], [place] [address]Vahjgsjlnh41-80-4089 11:25-0500Body plafzi876.58 kgCorey Roopa DO Work Phone: 1(745)[facility] [place], [place] [address]Nohstrtbtz28-54-0609 11:25-0500Diastolic blood kajzrgyc43 mm[Hg]Zay Roopa DO Work Phone: 1(193)[facility] CenterPggeswvqnv61-71-1760 11:25-0500Systolic blood vpqxkvof061 mm[Hg]Zay Roopa DO Work Phone: [facility] CenterCeuqhumzqv02-55-7690 10:38-0500Body ziusyw145.9 cmLamont Blair MD Work Phone: [facility] CenterAajnjpotdo34-54-9824 10:38-0500Body mass index (BMI) [Ratio]49.13 kg/m2Lamont Blair MD Work Phone: [facility] CenterGjduyqquxn24-21-0070 10:38-0500Body temperature 98.01 [degF]Lamont Blair MD Work Phone: [facility] CenterNjwclwestt91-68-8489 10:38-0500Body bsxsvi944.94 kgLamont Blair MD Work Phone: [facility] CenterHzhsumeoth08-33-9828 10:38-0500Diastolic blood icmnrafc88 mm[Hg]Lamont Blair MD Work Phone: [facility] CenterSokjkfdoaw32-06-7802 10:38-0500Heart utig217 /min Lamont Blair MD Work Phone: [facility] CenterQasyqocvxa44-71-6262 10:38-0500Respiratory rate22 /minLamont Blair MD Work Phone: [facility] CenterIjhllgtwvn09-31-9104 10:38-5242OwM5% (BldA) [Mass fraction]90 %Lamont Blair MD Work Phone: [facility] CenterWnddakjwco85-98-9832 10:38-0500Systolic blood jqgqewiw200 mm[Hg]Lamont Blair MD Work Phone: [facility] CenterRukwbspevx63-26-5534 13:28-0500Body .9 cmLamont Blair MD Work Phone: [facility] CenterZofeculrin61-63-2200 13:28-0500Body mass index (BMI) [Ratio]52.91 kg/m2Lamont Blair MD Work Phone: [facility] CenterXpjaawbwpd10-34-5321 13:28-0500Body temperature 98.4 [degF]Lamont Blair MD Work Phone: [facility] CenterFjdgjscsiq67-42-9087 13:28-0500Body .01 kgLamont Blair MD Work Phone: [facility] CenterAofrxxcvxd78-49-0299 13:28-0500Diastolic blood wjknzlos75 mm[Hg]Lamont Blair MD Work Phone: [facility] CenterZiefhzjivh69-28-9497 13:28-0500Heart ohii583 /min Lamont Blair MD Work Phone: [facility] CenterIdwmtheebq92-81-1413 13:28-0500Respiratory rate26 /minLamont Blair MD Work Phone: [facility] CenterLutduhvgrv69-28-5617 13:28-9971TyJ5% (BldA) [Mass fraction]87 %Lamont Blair MD Work Phone: [facility] CenterIwnhppsvbt47-25-4270 13:28-0500Systolic blood yorrwuil827 mm[Hg]Lamont Blair MD Work Phone: [facility] CenterPfcyznexoj12-82-6318 15:39-0500Diastolic blood mm[Hg]Infusion 1 Work Phone: [facility]12-02-2024 15:39-0500Heart rate97 /min Infusion 1 Work Phone: [facility]12-02-2024 15:39-0500Systolic blood semprieb666 mm[Hg]Infusion 1 Work Phone: [facility]12-02-2024 13:35-3983JdF8% (BldA) [Mass fraction]97 %Infusion 1 Work Phone: [facility] WestCompaul [facility]:on room lvr53-30-4053 11:28-0500Diastolic blood xiunczrq92 mm[Hg]Infusion 5 Work Phone: [phone]11-29-2024 11:28-0500Heart rate88 /min Infusion 5 Work Phone: [phone]11-29-2024 11:28-0500Systolic blood ypdyzpdb282 mm[Hg]Infusion 5 Work Phone: [facility]11-29-2024 10:00-0500Body temperature 97.3 [degF]Infusion 5 Work Phone: [facility]11-27-2024 11:09-0500Diastolic blood mm[Hg]Infusion 6 Work Phone: [phone]11-27-2024 11:09-0500Heart rate85 /min Infusion 6 Work Phone: [phone]11-27-2024 11:09-0500Systolic blood wvhicbnp322 mm[Hg]Infusion 6 Work Phone: [facility]11-19-2024 09:18-0500Body waakng127.9 cmLamont Blair MD Work Phone: [facility] CenterHavydrtzlq54-66-6795 09:18-0500Body mass index (BMI) [Ratio]53.66 kg/m2Lamont Blair MD Work Phone: [place] [address]Oyzkxslgup48-60-9400 09:18-0500Body temperature 98.01 [degF]Lamont Blair MD Work Phone: [place] [address]Qtuiqosrgh89-13-2918 09:18-0500Body haiwuw996.82 kgLamont Blair MD Work Phone: [place] [address]Wytfhfjyap57-14-6883 09:18-0500Diastolic blood muqxopcb81 mm[Hg]Lamont Blair MD Work Phone: [phone] [place], [place] [address]Slpnsuuloh14-41-6367 09:18-0500Heart cihw441 /min Lamont Blair MD Work Phone: [place] [address]Eumphoroqf29-68-2368 09:18-0500Respiratory rate20 /minLamont Blair MD Work Phone: [place] [address]Ixmvvnwcym44-29-7881 09:18-0645EaR3% (BldA) [Mass fraction]90 %Lamont Blair MD Work Phone: [place] [address]Bvqljwwams54-27-3671 09:18-0500Systolic blood lywhevmz909 mm[Hg]Lamont Blair MD Work Phone: [place] [address]Rwqfeaioca26-71-1179 13:38-0500Diastolic blood lpysxdon44 mm[Hg]Infusion 8 Work Phone: [facility]11-15-2024 13:38-0500Heart vupm034 /minInfusion 8 Work Phone: [facility]11-15-2024 13:38-0500Systolic blood ziiqzjdt021 mm[Hg]Infusion 8 Work Phone: [facility]09-25-2024 09:05-0400Body .9 cmLamont Blair MD Work Phone: [facility] CenterKtlscreupb63-01-1403 09:05-0400Body mass index (BMI) [Ratio]51.58 kg/m2Lamont Blair MD Work Phone: [facility] CenterVjnqxltfad48-43-6416 09:05-0400Body temperature 97.81 [degF]Lamont Blair MD Work Phone: [facility] CenterBwpwunhajp07-25-7768 09:05-0400Body .83 kgLamont Blair MD Work Phone: [facility] CenterZbjiozttba93-90-2008 09:05-0400Diastolic blood hifnjilw59 mm[Hg]Lamont Blair MD Work Phone: [facility] CenterXmkbihynlo39-67-8670 09:05-0400Heart rate60 /min Lamont Blair MD Work Phone: [facility] CenterNwtnmypaxl30-23-6074 09:05-0400Respiratory rate24 /minLamont Blair MD Work Phone: [facility] CenterXvwgjtvtzf86-56-3590 09:05-0400Systolic blood bfnxbrek619 mm[Hg]Lamont Blair MD Work Phone: [facility] CenterZscqlixylo22-74-4639 13:51-0400Diastolic blood luzrakwe13 mm[Hg]Infusion 8 Work Phone: [facility]08-23-2024 13:51-0400Heart rate77 /min Infusion 8 Work Phone: [facility]08-23-2024 13:51-0400Systolic blood wuuslqas908 mm[Hg]Infusion 8 Work Phone: [facility]08-20-2024 09:25-0400Body uohewd191.9 cmLamont Blair MD Work Phone: [facility] CenterNsdmfdalmc18-74-6671 09:25-0400Body mass index (BMI) [Ratio]48.94 kg/m2Lamont Blair MD Work Phone: [facility] CampusSetsssyxwa04-23-1712 09:25-0400Body temperature 97.5 [degF]Lamont Blair MD Work Phone: [place] [address]Suzleyplgg35-53-1432 09:25-0400Body .48 kgLamont Blair MD Work Phone: [facility] CenterDkzdzvrbrp62-00-7217 09:25-0400Diastolic blood kgiccyea87 mm[Hg]Lamont Blair MD Work Phone: [facility] CenterXgwoyzlaqx52-27-2256 09:25-0400Heart rate88 /min Lamont Blair MD Work Phone: [facility] CenterAoadjvljtt21-23-5037 09:25-0400Respiratory rate22 /minLamont Blair MD Work Phone: [facility] CenterIjzfrbuwvg91-33-0235 09:25-7368DxO3% (BldA) [Mass fraction]95 %Lamont Blair MD Work Phone: [facility] CenterFzlifhugjf99-45-1432 09:25-0400Systolic blood ucncdnbc170 mm[Hg]Lamont Blair MD Work Phone: [facility] CenterQsspylpbki78-05-3424 14:22-0400Body hegthm688.4 cmSagar Green BIKE ASSEMBLER.MANUFACTURING TECH Work Phone: [facility]07-30-2024 14:22-0400Body mass index (BMI) [Ratio]47.33 kg/m2Sagar Green BIKE ASSEMBLER.MANUFACTURING TECH Work Phone: [facility]07-30-2024 14:22-0400Body temperature 99.1 [degF]Cameroni Green BIKE ASSEMBLER.MANUFACTURING TECH Work Phone: [facility]07-30-2024 14:22-0400Body ygltoc114.75 kgSagar Green BIKE ASSEMBLER.MANUFACTURING TECH Work Phone: [facility]07-30-2024 14:22-0400Diastolic blood qslzynna65 mm[Hg]Cameroni Green BIKE ASSEMBLER.MANUFACTURING TECH Work Phone: [facility]07-30-2024 14:22-0400Heart rate80 /min Sagar Green BIKE ASSEMBLER.MANUFACTURING TECH Work Phone: [facility]07-30-2024 14:22-0400Systolic blood ijgrlzsm540 mm[Hg]Sagar Barth APRN.MANUFACTURING TECH Work Phone: [facility]06-28-2024 09:26-0400Diastolic blood bwbkohiu15 mm[Hg]Curtis Lepe PA-C Work Phone: c[facility] HealthPivsoq83-02-1516 09:26-0400Heart rate88 /min Curtis Lepe PA-C Work Phone: c[facility] HealthPysbxg58-87-8054 09:26-3080GvO9% (BldA) [Mass fraction]97 %Curtis Lepe PA-C Work Phone: cParkview HealthZaagez20-24-2195 09:26-0400Systolic blood mhuoeoat435 mm[Hg]Curtis Lepe PA-C Work Phone: cPark[facility] HealthKkdirs57-42-4798 11:08-0500Diastolic blood ybvzutgi36 mm[Hg]Infusion 7 Work Phone: [facility]02-23-2024 11:08-0500Heart rate84 /min Infusion 7 Work Phone: [facility]02-23-2024 11:08-0500Systolic blood mkxzsjnu796 mm[Hg]Infusion 7 Work Phone: [facility]02-22-2024 10:50-0500Diastolic blood mm[Hg]Infusion 7 Work Phone: [place] [address]-22-2024 10:50-0500Heart rate86 /min Infusion 7 Work Phone: [facility]02-22-2024 10:50-0500Systolic blood [id number] mm[Hg]Infusion 7 Work Phone: [facility]02-21-2024 13:45-0500Diastolic blood [id number] mm[Hg]Infusion 7 Work Phone: [place] [address]-21-2024 13:45-0500Heart rate79 /min Infusion 7 Work Phone: [facility]02-21-2024 13:45-0500Systolic blood [id number] mm[Hg]Infusion 7 Work Phone: [facility]09-22-2023 10:55-0400Diastolic blood mm[Hg]Infusion 8 Work Phone: [facility]09-22-2023 10:55-0400Heart rate83 /min Infusion 8 Work Phone: [facility]09-22-2023 10:55-0400Systolic blood [id number] mm[Hg]Infusion 8 Work Phone: [place] [facility]06-08-2023 10:15-0400Diastolic blood uvenflup01 mm[Hg]Infusion 8 Work Phone: [facility]06-08-2023 10:15-0400Heart rate80 /min Infusion 8 Work Phone: [facility]06-08-2023 10:15-0400Systolic blood szchoypy643 mm[Hg]Infusion 8 Work Phone: [facility]10-14-2022 09:47-0400Diastolic blood otcksgni90 mm[Hg]Jesse Borrego MD Work Phone: [facility]10-14-2022 09:47-0400Heart rate66 /min Jesse Borrego MD Work Phone: [facility]10-14-2022 09:47-2107BkI7% (BldA) [Mass fraction]100 %Jesse Borrego MD Work Phone: [facility]10-14-2022 09:47-0400Systolic blood wwymupzd413 mm[Hg]Jesse Borrego MD Work Phone: [facility]08-31-2022 12:00-0400Diastolic blood mm[Hg]Lucila Mota MD Work Phone: [facility]08-31-2022 12:00-0400Heart rate85 /minArbour Hospitalradha Mota MD Work Phone: [facility]ENTERSolv[employer] [facility] KZCJXA05-68-8728 12:00-0400 Respiratory rate12 /Anastasia Mota MD Work Phone: [facility]08-31-2022 12:00-6415HaO7% (BldA) [Mass fraction]98 %Lucila Mota MD Work Phone: [facility]08-31-2022 12:00-0400Systolic blood vklyfuhp399 mm[Hg]Lucila Mota MD Work Phone: [facility]08-31-2022 08:00-0400Body riejibufdkc65.2 [degF]Lucila Mota MD Work Phone: [facility]11-04-2021 19:36-0400Body adrrstkkbom17 [degF]Keven Ching DO Work Phone: [facility] Work Phone: 1(869) 208-531411-04-2021 19:36-0400Diastolic blood qhiurafx36 mm[Hg] Keven Ching DO Work Phone: [facility] Work Phone: 1(308) 130-142711-04-2021 19:36-0400Heart fwsy118 /minAmanda Joshua DO Work Phone: [facility] Work Phone: 1(645) 608-850511-04-2021 19:36-0400Respiratory rate20 /minAmanda Joshua DO Work Phone: [facility] Work Phone: 1(344) 517-839611-04-2021 19:36-1245VqM1% (BldA) [Mass fraction]96 % Keven Ching DO Work Phone: [facility] Work Phone: 1(140) 738-917311-04-2021 19:36-0400Systolic blood mm[Hg] Keven Ching DO Work Phone: [facility] Work Phone: Encounters Encounter DateEncounter TypeCare ProviderFacilityStart: 12-20-2024 End: 12-49-5313Xpkdga outpatient visit 25 minutesAssumpta Radha Nnaji BIKE ASSEMBLER-MANUFACTURING TECH Work Phone: [facility] Family MedicineComment on above: Moderate persistent asthma without complication (Primary Dx); Watery eyes; Seasonal allergic rhinitis, unspecified triggerStart: 12-17-2024 End: 88-04-1844Xzqafi outpatient visit 25 minutesVincent Peña DO Work Phone: [facility] Pulmonary/Sleep MedicineComment on above:Moderate persistent asthma without complication (Primary Dx); Gastroesophageal reflux disease without esophagitis; Environmental allergiesStart: 12-13-2024 End: 04-93-6320gmosfuklgcLDFXBIY SCHAEFERFacility:[facility] Start: 12-12-2024 End: 50-48-3176Fgzdibcle encounterCorine Gold MD Work Phone: [facility] - Sleep [facility] Comment on above:Sleep Lab (Comp PSG/PAP)Start: 12-12-2024 End: 67-91-7531qsgobpqbznPFLWAzshvnmo:[facility] Hospitaltart: 12-11-2024 End: 18-89-0007mpxnbzbiacEZKF GREENFacility:[facility] Hospitaltart: 12-10-2024 End: 76-22-1043Dbzemh outpatient visit 25 minutesCorine Gold MD Work Phone: [facility] Family MedicineComment on above: JUAN DAVID (obstructive sleep apnea) (Primary Dx)Start: 12-09-2024 End: 42-16-8632TcefkyYxhaid M Elston DO Work Phone: [facility] Pulmonary/Sleep MedicineComment on above:Moderate asthma with acute exacerbation, unspecified whether persistent Start: 57-27-7572vsngcwexalMwqcpltmrsw AbdelazizFacility:[facility]tart: 11-26-2024 End: 23-84-9523wltmtwaajbBNNKJEL SCHAEFERFacility:[facility] Start: 10-24-2024 End: 71-45-6784Lwcxrd outpatient visit 15 minutesAlexaluisa Hart BIKE ASSEMBLER-MANUFACTURING TECH Work Phone: [facility] Family MedicineComment on above: Left otitis media, unspecified otitis media type (Primary Dx); Mild asthma with exacerbation, unspecified whether persistentStart: 09-30-2024 End: 07-76-3621Trytvj Gabriel Peña DO Work Phone: [facility] Pulmonary/Sleep MedicineComment on above:Moderate persistent asthma, unspecified whether complicatedStart: 09-29-2024 End: 95-69-3559YcwdwxNyuzaub M Asif MD Work Phone: [facility] Family MedicineComment on above: Muscle spasmStart: 09-24-2024 End: 87-69-9530spvhysmnjpENAKVPR SCHAEFERFacility:[facility] Start: 09-03-2024 End: 02-11-9920Lmsnno flowsheetCorey Roopa DO Work Phone: [facility] BCP OBStart: 09-03-2024 End: 99-05-9972Kifyfw flowsheetCorey Roopa DO Work Phone: [facility] BCP OBStart: 09-03-2024 End: 94-60-0987Tdsvmu outpatient visit 15 minutesCorey Roopa DO Work Phone: [facility] BCP OBComment on above:Hot flashes due to surgical menopauseStart: 09-03-2024 End: 18-17-5575lrnjpvuceqCRPFZ FAZIONot AvailableStart: 09-02-2024 End: 50-94-2257Xlmsnj OnlyKoli Green BIKE ASSEMBLER.MANUFACTURING TECH Work Phone: [facility] FHCComment on above:Intractable chronic migraine without aura and without status migrainosus (Primary Dx)Start: 08-30-2024 End: 32-52-8390Xsyzas OnlyKoli Green BIKE ASSEMBLER.MANUFACTURING TECH Work Phone: [facility] FHCStart: 08-26-2024 End: 64-95-9424Ewsipq LadiMali Hart BIKE ASSEMBLER-MANUFACTURING TECH Work Phone: [facility] Family MedicineComment on above: Allergic reaction, sequela (Primary Dx)Start: 08-16-2024 End: 30-16-4385ekxwdjkizeGeih Green APRN.MANUFACTURING TECH Work Phone: [facility] FHCComment on above:InfusionStart: 08-15-2024 End: 26-14-0572beyybkabulZssgfoy Schaefer PA-C Work Phone: NeurologyComment on above:Heads poundingStart: 08-05-2024 End: 43-48-4022Bicntnhuf encounterChelsea [facility] Home DeliveryComment on above:Insurance Authorization (Zavzpret 10MG/ACT solution); Zavzpret 10MG/ACT solutionStart: 08-02-2024 End: 70-56-5179Ytuxqkh encounter procedureMajakub Lepe PA-C Work Phone: NeurologyComment on above:Intractable chronic migraine without aura and with status migrainosus (Primary Dx); Status migrainosusStart: 08-02-2024 End: 80-99-8637pqezzxchvwJkyeowvy Main Chair 5 Work Phone: NeurologyComment on above:Chronic migraine without aura, with intractable migraine, so stated, with status migrainosus (Primary Dx); Intractable chronic migraine without aura and with status migrainosusStart: 08-01-2024 End: 97-94-6175jlcrdmzxxqSyheeuot Main Chair 7 Work Phone: NeurologyComment on above:Intractable chronic migraine without aura and without status migrainosus (Primary Dx)Start: 07-24-2024 End: 67-42-6855Dioeiy outpatient visit 25 minutesHalima Johns APRN-MANUFACTURING TECH Work Phone: [facility] Family MedicineComment on above: Eye infection, bilateral (Primary Dx); Ingrown nail of great toeStart: 07-05-2024 End: 21-35-3156Jibuymtjymywb procedureJoForbes Hospital ClinicComment on above:Received BHP FAXStart: 07-05-2024 End: 56-45-4807Sqwixsjmf encounterMajakub Lepe PA-C Work Phone: NeurologyComment on above:Infusion (Headache infusion scheduling)Start: 07-04-2024 End: 55-44-4425Dzhwtadk HealthMattmaximilian Lepe PA-C Work Phone: NeurologyComment on above:Status migrainosus (Primary Dx); Intractable chronic migraine without aura and without status migrainosus; Generalized anxiety disorder; Chronic migraine without aura, with intractable migraine, so stated, with status migrainosus; Intractable chronic migraine without aura and with status migrainosusStart: 07-01-2024 End: 82-53-9456Idjzam flowsheetCorey Roopa DO Work Phone: [facility] BCP OBStart: 07-01-2024 End: 89-86-5636Kecapi flowsheetCorey Roopa DO Work Phone: [facility] BCP OBStart: 07-01-2024 End: 71-89-0047Wjdpqn outpatient visit 15 minutesCorey Roopa DO Work Phone: [facility] BCP OBComment on above:Yeast infection; BV (bacterial vaginosis); Low libido; Dyspareunia in femaleStart: 07-01-2024 End: 73-65-2679cntxvwrrudBSFFS FAZIONot AvailableStart: 06-25-2024 End: 54-19-1987Vhzvnovke encounterViktoria Walton MS, CGC Work Phone: Genetics ClinicComment on above:Genetic Testing Prior Authorization RequestStart: 06-11-2024 End: 37-64-6414ymyptihhgcHMNELIV M [facility] for Childrentart: 06-10-2024 End: 35-28-4834Hqyvwg OnlyViktoria Walton MS, CGC Work Phone: Genetics ClinicStart: 06-07-2024 End: 66-18-1659Dqtgwwkvm encounterGtramya Fernández JohnProMedica Call CenterStart: 06-06-2024 End: 91-57-0428Srodxx outpatient visit 25 minutesCorine Gold MD Work Phone: [facility] Family MedicineComment on above: Weight loss (Primary Dx); Moderate persistent asthma with acute exacerbation; Seasonal allergic rhinitis, unspecified triggerStart: 06-06-2024 End: 87-35-4411PpltzjBatnwtm M Asif MD Work Phone: [facility] Family MedicineComment on above: Seasonal allergic rhinitis, unspecified triggerStart: 05-31-2024 End: 69-27-8621QrzhrqWdwgShaw Barth APRN.CNP Work Phone: Neurology [facility] FHCComment on above:Refill RequestStart: 05-24-2024 End: 81-80-8790QmvimxZmgteq M Elston DO Work Phone: [facility] Pulmonary/Sleep MedicineComment on above:Moderate persistent asthma, unspecified whether complicatedStart: 05-21-2024 End: 89-19-9544Vyvqmn outpatient visit 15 minutesRajinder Cotton DO Work Phone: [facility] Family MedicineComment on above: Moderate persistent asthma with acute exacerbation (Primary Dx); Acute pansinusitis, recurrence not specified; Antibiotic-induced yeast infectionStart: 05-15-2024 End: 24-22-2391Ftzsgl follow up visit related to original Edgardo HERNANDEZ Work Phone: Joie Fernández [facility] - Medical OncologyComment on above:S/P bilateral salpingo-oophorectomy (Primary Dx); Menopausal symptomsStart: 05-07-2024 End: 21-00-1984Gedqhuvgc encounterAngely Cotton RN Work Phone: [facility] Home DeliveryComment on above: Insurance Authorization; ubrelvyStart: 05-03-2024 End: 86-81-8593Wvwexgdv [facility] Hospitalmaximilian Lepe PA-C Work Phone: NeurologyComment on above:Intractable chronic migraine without aura and with status migrainosus (Primary Dx); Nausea; Generalized anxiety disorderStart: 05-02-2024 End: 64-27-5916Avbgkh Martin HERNANDEZ Work Phone: [facility], A [facility] HospitalComment on above:Postoperative infection, unspecified type, subsequent encounter (Primary Dx)Chronic migraine without aura, with intractable migraine, so stated, with status migrainosus (Primary Dx); Intractable chronic migraine without aura and with status migrainosus; Intractable chronic migraine without aura and without status migrainosusStart: 05-01-2024 End: 40-31-6203Fysqvh Gabriel Peña DO Work Phone: [facility] Pulmonary/Sleep MedicineComment on above:Moderate persistent asthma, unspecified whether complicatedStart: 04-30-2024 End: 34-84-0870Tddckmpqt encounterCaterina Smith CMAProMedica Physicians Family MedicineStart: 04-29-2024 End: 21-76-7918Bmvgju OnlyMali MCCLAIN Work Phone: [facility] Family MedicineComment on above: Postoperative surgical complication involving genitourinary system associated with genitourinary procedure, unspecified complicationStart: 04-25-2024 End: 90-30-6909Iiykmq outpatient new 45 minutesCorine Gold MD Work Phone: [facility] Family MedicineComment on above: Muscle spasm (Primary Dx); Fatigue due to depression; Nausea and vomiting, unspecified vomiting type; Mild persistent asthma without status asthmaticus without complication; Psychogenic nonepileptic seizureStart: 04-24-2024 End: 56-89-8027Wxtxvzywtvrgl procedureCanraghu Antonio [facility] - Medical OncologyStart: 04-24-2024 End: 32-86-7301Aamdvo follow up visit related to original pxCourtney Ye PA Work Phone: Joie Pradeep [facility] - Medical OncologyComment on above:Post-operative pain (Primary Dx)Start: 04-19-2024 End: 95-02-5892cbblbaqhsgTpmy Green APRN.MANUFACTURING TECH Work Phone: Neurology [facility] FHCComment on above:InfusionsStart: 04-16-2024 End: 35-76-1766Ckiznl flowsheetCorey Roopa DO Work Phone: [facility] BCP OBStart: 04-16-2024 End: 69-52-9535Raqpmp flowsheetCorey Roopa DO Work Phone: [facility] BCP OBStart: 04-16-2024 End: 58-17-9235Kglpvfxsv Result EncounterGeneric External Data ProviderNOMS External Department UnsolicitedStart: 04-16-2024 End: 19-15-9704pfewdkbjcrVGCPG FAZIONot AvailableStart: 04-16-2024 End: 43-52-6071Cpfjmtc encounter procedureCorey Roopa DO Work Phone: [facility] Work Phone: Start: 04-16-2024 End: 06-83-0303Jhsqavpw preventive med est patient 18-39 yrsCorey Roopa DO Work Phone: [facility] BCP OBComment on above:Well woman exam with routine gynecological examStart: 04-15-2024 End: 56-39-3897Catizc follow up visit related to original Edgardo HERNANDEZ Work Phone: [facility], A [facility] of [facility] HospitalComment on above:Postoperative surgical complication involving genitourinary system associated with genitourinary procedure, unspecified complication (Primary Dx); Post-op pain; Sweating profusely; Menopausal symptoms; Nausea and vomiting, unspecified vomiting typeStart: 04-08-2024 End: 54-49-6575Xeipdxmzf encounterMaleonora Ku [facility]IAPro[facility], A Department of [facility] Hospitaltart: 04-08-2024 End: 08-78-5263Masjorvbob and management of inpatientDaconstantine Melton DO Work Phone: [facility] - GEN 6 AcuteComment on above:Postoperative surgical complication involving genitourinary system associated with genitourinary procedure, unspecified complication (Primary Dx) Start: 04-02-2024 End: 02-30-6408lbvlfwiiwtLQNXO FAZIONot AvailableStart: 04-02-2024 End: 83-58-8060Tyqiqw outpatient visit 10 minutesCorey Roopa DO Work Phone: [facility] BCP OBComment on above:Visit for wound check; Yeast infectionStart: 04-01-2024 End: 71-48-2811Dmjqmz Martin HERNANDEZ Work Phone: [facility], A Department of [facility] HospitalComment on above:S/P bilateral salpingo-oophorectomy Post-op pain (Primary Dx)Start: 03-25-2024 End: 68-67-8012Soytaei encounter statusMet61 [address] Streettart: 03-25-2024 End: 81-22-2391Gimxuw Michelle Martinez MD Work Phone: [facility], A Department of [facility] HospitalComment on above:Preop testing (Primary Dx); Bilateral ovarian cystsStart: 03-21-2024 End: 32-14-1643Phanzoyqg encounterMundo Martinez MD Work Phone: [facility], A Department of [facility] HospitalComment on above:Other (Surgery questions)Start: 03-21-2024 End: 32-51-5943pzemxpqdakCkebLuis Barth APRN.CNP Work Phone: [facility] [place] FHCComment on above:Intractable chronic migraine without aura and without status migrainosus (Primary Dx)Start: 03-21-2024 End: 08-39-2302Fggmxmlmbrzm consultation with patientKoli Green BIKE ASSEMBLER.MANUFACTURING TECH Work Phone: [facility] Hospitaltart: 03-20-2024 End: 85-90-5428Jxdikt outpatient new 45 minutesVincent Peña DO Work Phone: [facility] Pulmonary/Sleep MedicineComment on above:Asthma, unspecified asthma severity, unspecified whether complicated, unspecified whether persistent (Primary Dx); Bilateral ovarian cysts; Moderate asthma with acute exacerbation, unspecified whether persistent; Encounter for preoperative pulmonary examination; Pulmonary nodule; Gastroesophageal reflux disease, unspecified whether esophagitis presentStart: 03-20-2024 End: 71-31-5405Gzhyywevvksj stateMundo Martinez MD Work Phone: [facility] CompanyFreshT [facility] Centertart: 03-20-2024 End: 25-80-4647Avymiq Michelle Martinez MD Work Phone: [facility] Gynecology Oncology, A Department of [facility] HospitalComment on above:Bilateral ovarian cysts (Primary Dx); Moderate asthma with acute exacerbation, unspecified whether persistent; Encounter for preoperative pulmonary examinationAcute cough [R05.1] (Primary Dx) Start: 03-19-2024 End: 91-78-3571Wgzodx Michelle Martinez MD Work Phone: [facility] Gynecology Oncology, A Department of [facility] HospitalComment on above:Bilateral ovarian cysts (Primary Dx); Preop testingStart: 03-19-2024 End: 15-00-5747Qurfcfu encounter statusMundo Martinez MD Work Phone: [facility] CompanyFreshT SystemStart: 03-18-2024 End: 55-70-3293Huvccw outpatient new 60 minutesMundo Martinez MD Work Phone: [facility] Gynecology Oncology, A Department of [facility] HospitalComment on above:Cyst of right ovary (Primary Dx)Start: 03-06-2024 End: 20-59-7362Fppira outpatient visit 15 minutesCorey Roopa DO Work Phone: [facility] BCP OBComment on above:Cyst of right ovary; Pelvic pain in female; Pelvic peritoneal adhesions, femaleStart: 03-06-2024 End: 90-12-6455fpxxhufzcaBWFME FAZIONot AvailableStart: 02-28-2024 End: 36-28-4640Rxspsi flowsheetCorey Roopa DO Work Phone: [facility] BCP OBStart: 02-28-2024 End: 87-19-1803Gijzrk flowsheetCorey Roopa DO Work Phone: [facility] BCP OBStart: 02-28-2024 End: 70-12-2769bxzrahqtdkUFEVK FAZIONot AvailableStart: 02-28-2024 End: 58-39-8162Afkzbs outpatient visit 15 minutesCorey Roopa DO Work Phone: [facility] BCP OBComment on above:Pelvic pain in female; Complex ovarian cystStart: 02-26-2024 End: 77-83-8142Fkprkmjkd encounterLamont Blair MD Work Phone: [facility] CI FMStart: 02-22-2024 End: 81-07-5440Jwgqoagfv encounterSagar Barth APRN.CNP Work Phone: Neurology [facility] FHCComment on above:Insurance Authorization (Zolmitriptan)Start: 02-19-2024 End: 41-43-0045Ivgcqhchi Result EncounterGeneric External Data ProviderNOMS External Department UnsolicitedStart: 02-19-2024 End: 38-54-7132Csgimjqio Result EncounterGeneric External Data ProviderNOMS External Department UnsolicitedStart: 02-16-2024 End: 29-35-8800vtgpqeohluCalpzys J DittyFacility:[facility] Hospitaltart: 02-09-2024 End: 34-76-2982Vyghet outpatient visit 25 minutesLamont Blair MD Work Phone: n[facility] CWM FMComment on above:Generalized abdominal pain (Primary Dx); Intractable nausea and vomiting; Mild persistent asthma with (acute) exacerbation (CMS/HCC)Start: 02-09-2024 End: 76-42-5586bgqapbffypLQXJ NADERERNot AvailableStart: 01-31-2024 End: 45-88-8334Dckgmjgqj Result EncounterGeneric External Data ProviderNOMS External Department UnsolicitedStart: 01-31-2024 End: 42-61-2299Kedsjfvvu Result EncounterGeneric External Data ProviderNOMS External Department UnsolicitedStart: 01-29-2024 End: 57-92-4222Jxajucibc encounterSagar Barth APRN.CNP Work Phone: Neurology [facility] FHtart: 01-24-2024 End: 24-26-7686LhgiwlYuli Blair MD Work Phone: [facility] CWM FMComment on above:COVID-19Start: 01-23-2024 End: 55-90-9105Xhxcyr Christina Blair MD Work Phone: [facility] CWM FMStart: 01-23-2024 End: 20-02-6536Kkvebx Christina Blair MD Work Phone: [facility] CWM FMStart: 01-23-2024 End: 82-79-7074Uzkebm outpatient visit 25 minutesLamont Blair MD Work Phone: [facility] CWM FMComment on above:Mild persistent asthma with (acute) exacerbation (CMS/HCC) (Primary Dx); Generalized edema; SOB (shortness of breath) on exertionStart: 01-23-2024 End: 20-74-3580yznghgmbnbMOVG NADERERNot AvailableStart: 01-22-2024 End: 70-66-3069Ekqjeze encounter Juan J Shields APRN.CNP Work Phone: NeurologyComment on above:Chronic migraine without aura, with intractable migraine, so stated, with status migrainosus (Primary Dx) Start: 01-22-2024 End: 03-57-4701iyjsgtzmvpUyjavwrj Main Chair 1 Work Phone: NeurologyComment on above:Chronic migraine without aura, with intractable migraine, so stated, with status migrainosus (Primary Dx); Intractable chronic migraine without aura and with status migrainosusStart: 01-20-2024 End: 74-69-5598FltmqiIlly Naderer MD Work Phone: [facility] CWM FMComment on above:Pain, dentalStart: 01-19-2024 End: 15-59-8300slozbdfijvWxwnhjpm Main Chair 5 Work Phone: NeurologyComment on above:Chronic migraine without aura, with intractable migraine, so stated, with status migrainosus (Primary Dx); Intractable chronic migraine without aura and with status migrainosusStart: 01-17-2024 End: 29-62-8562rtpdupoceyFflhwuaf Main Chair 6 Work Phone: NeurologyComment on above:Chronic migraine without aura, with intractable migraine, so stated, with status migrainosus (Primary Dx); Intractable chronic migraine without aura and with status migrainosusStart: 01-16-2024 End: 96-39-8429mzalfrwvjdQybq Tab [employer] Work Phone: Neurology [facility] FHCComment on above:Please helpStart: 01-09-2024 End: 24-87-1241Ttlauc Christina Blair MD Work Phone: [facility] CWM FMStart: 01-09-2024 End: 15-88-6354Pzvnzy Christina Blair MD Work Phone: [facility] CWM FMStart: 01-09-2024 End: 62-51-2903Jukvjj outpatient visit 25 minutesLamont Blair MD Work [...] not intractable (CMS/HCC); Pain, dentalStart: 01-09-2024 End: 22-49-3846pvckucfubdRCVQ SUKHRMaia AvailableStart: 01-05-2024 End: 95-14-7384xhzosyoayxStafxtjh Main Chair 8 Work Phone: NeurologyComment on above:Intractable chronic migraine without aura and without status migrainosus (Primary Dx)Start: 12-11-2023 End: 84-91-1907Ormexy flowsheetCorey Roopa DO Work Phone: NOTA BCP OBStart: 12-11-2023 End: 91-92-7114Gcerrm flowsheetCorey Roopa DO Work Phone: NOLY BCP OBStart: 12-11-2023 End: 67-04-0523vgpmokeuemKFBQR FAZIONot AvailableStart: 12-05-2023 End: 53-29-3721yueicrqeloNjuuu J Stiffler APRN.MANUFACTURING TECH Work Phone: NeurologyComment on above:Intractable chronic migraine without aura and without status migrainosus (Primary Dx)Start: 12-05-2023 End: 38-08-9419Ujprwkmatufe consultation with Brendan Shabazz APRN.MANUFACTURING TECH Work Phone: NeurologyStart: 11-15-2023 End: 20-17-3263Ercpjn Christina Blair MD Work Phone: [facility] CWM FMStart: 11-15-2023 End: 16-06-3462Jxcvgg Christina Blair MD Work Phone: [facility] CWM FMStart: 11-15-2023 End: 31-13-3996Xszaim outpatient visit 15 minutesLamont Blair MD Work Phone: [facility] CWM FMComment on above:Acute bronchitis due to other specified organisms (Primary Dx); Mixed bipolar I disorder (CMS/HCC)Start: 11-15-2023 End: 94-01-9357mtzsuqppzjAWMJ NADERERNot AvailableStart: 11-10-2023 End: 40-91-5589JffocrPfvnqmpRandy Lepe PA-C Work Phone: NeurologyComment on above:Refill RequestStart: 11-06-2023 End: 94-70-1626Dwaxnn Jose Maria Mustafa NP Work Phone: [facility] CWM FMComment on above:Severe persistent asthma without complication (CMS/HCC)Start: 10-13-2023 End: 78-42-8991denwgjygygZyfzyzsm Main Chair 8 Work Phone: NeurologyComment on above:Intractable chronic migraine without aura and without status migrainosus (Primary Dx)Start: 10-10-2023 End: 08-25-0970Lvyuij flowsLou Blair MD Work Phone: [facility] CWM FMStart: 10-10-2023 End: 86-41-5472Enjxsw flowsLou Blair MD Work Phone: [facility] CWM FMStart: 10-10-2023 End: 76-21-8687Aclpvf outpatient visit 15 minutesLamont Blair MD Work Phone: [facility] CWM FMComment on above:Acute bronchitis due to other specified organisms (Primary Dx); Mild persistent asthma with (acute) exacerbation (CMS/HCC)Start: 10-10-2023 End: 10-86-4255jdqdyalzjpFWEK NADERERNot AvailableStart: 09-25-2023 End: 17-14-1456zmprehxwtpCCLGI FAZIONot AvailableStart: 09-19-2023 End: 89-82-0226Nldoryx encounter Malina Barth APRN.CNP Work Phone: Neurology [facility] [place] FHCComment on above:Intractable chronic migraine without aura and without status migrainosus (Primary Dx)Start: 08-18-2023 End: 57-01-3032Nobzbtl encounter procedureCurtis Lepe PA-C Work Phone: NeurologyComment on above:Intractable chronic migraine without aura and without status migrainosus (Primary Dx); Psychogenic nonepileptic seizureStart: 70-87-7539mcwbbveukvLbwqLuis Barth APRN.CNP Work Phone: [facility] Head[facility] HospitalCStart: 62-94-5720Zhnhepgzsc hospital visit by Randolph Barth APRN.CNP Work Phone: Neurology Headache [place] FHCComment on above:Hospital visitStart: 20-93-3580cawdhymsnpQxrvLuis Barth APRN.CNP Work Phone: Neurolog Headache [facility] HospitalCComment on above:InjectionStart: 07-10-2023 End: 62-74-1560pmjamwhmbqVnrpLuis Barth APRN.CNP Work Phone: Neurology Headache [place] FHCComment on above:Intractable chronic migraine without aura and without status migrainosus (Primary Dx)Start: 07-10-2023 End: 56-48-9020Uekhysbdxkzs consultation with Aditya Barth APRN.CNP Work Phone: Neurolog Headache [place] FHCStart: 56-21-4691huudheiapoGctxbVarsha Shabazz APRN.CNP Work Phone: NeurologyComment on above:ConcernHeadacheStart: 04-14-2023 End: 71-82-3759zrfeugpccaBojsegvy Main Chair 7 Work Phone: NeurologyComment on above:Chronic migraine without aura, with intractable migraine, so stated, with status migrainosus (Primary Dx); Intractable chronic migraine without aura and with status migrainosusStart: 04-14-2023 End: 42-55-7570Lwbqgrn encounter procedureSuzan Ivey APRN.CNP Work Phone: NeurologyComment on above:Intractable chronic migraine without aura and with status migrainosus (Primary Dx); Intractable chronic migraine without aura and without status migrainosusStart: 89-05-4585Slkwnmzqd encounterSagar Barth APRN.CNP Work Phone: NeurologyComment on above:Appointment (Patient currently receiving infusions for headache. She is interested in learning about reboot program. Please schedule patient for evaluation if appropriate to proceed.)Start: 04-13-2023 End: 89-75-0213tltnwvufaoRnobaxte Main Chair 7 Work Phone: NeurologyComment on above:Chronic migraine without aura, with intractable migraine, so stated, with status migrainosus (Primary Dx); Intractable chronic migraine without aura and with status migrainosusStart: 04-12-2023 End: 29-53-5906Xppmoky encounter Frank Ivey APRN.CNP Work Phone: NeurologyComment on above:Intractable chronic migraine without aura and with status migrainosus (Primary Dx)Start: 04-12-2023 End: 66-05-2782whnviisnoiVsllmzka Main Chair 7 Work Phone: NeurologyComment on above:Chronic migraine without aura, with intractable migraine, so stated, with status migrainosus (Primary Dx); Intractable chronic migraine without aura and with status migrainosusStart: 83-41-9461Ktbaatnbm encounterAngely Cotton RN Work Phone: [facility] Home DeliveryComment on above: Insurance Authorization (Aimovig 70MG/ML auto-injectors/)Start: 99-54-3282Omtssf Sagar Barth APRN.CNP Work Phone: Neurology Headache [place] FHCComment on above:Refill RequestInfusion (HEADACHE INFUSIONS)Start: 77-41-5970LneoaxHhjgbLul Shabazz APRN.CNP Work Phone: NeurologyComment on above:Refill RequestStart: 11-11-2022 End: 51-34-8261vdfnixqcriYpfkqwsw Main Chair 8 Work Phone: NeurologyComment on above:Intractable chronic migraine without aura and with status migrainosus (Primary Dx)Start: 11-10-2022 End: 48-93-2467ohyytmxjgpQqslcVarsha Shabazz APRN.CNP Work Phone: NeurologyComment on above:Intractable chronic migraine without aura and with status migrainosus (Primary Dx)Nerve blockStart: 78-09-7032Omkqacscv encounterSuzan Ivey APRN.CNP Work Phone: NeurologyComment on above:InfusionStart: 11-10-2022 End: 63-67-6037Yyrwdruhxmjr consultation with Brendan Shabazz APRN.CNP Work Phone: ccf [facility] MAINStart: 99-10-5166dzzuxlsryl Suzan Ivey APRN.CNP Work Phone: NeurologyComment on above:BotoxStart: 24-99-9458O-mail encounter from caregiverSuzan Ivey APRN.CNP Work Phone: ccf [facility] MAINStart: 64-35-6218Trsxdzsjp encounterAngely Cotton RN Work Phone: [facility] Home DeliveryComment on above: Insurance Authorization (Zomig 5MG nasal spray/)Start: 68-61-3835ecrflayvvwFdxgLuis Barth APRN.CNP Work Phone: NEUR HEADACHE [facility] INDEPENDENCEComment on above:My apt Fridaystart: 00-28-4583oomthxaxniFyxzJuanjose Barth APRN.CNP Work Phone: cCF [facility] FHCStart: 72-06-1074Rtgnbcd encounter procedureSagar Barth APRN.CNP Work Phone: NEUR HEADACHE [facility] INDEPENDENCEComment on above: AppointmentStart: 08-31-2022 End: 86-05-0490kchrehlxznScztJuanjose Barth APRN.CNP Work Phone: NeurologyComment on above:Chronic migraine w/o aura, not intractable, w/o stat migr (Primary Dx)Start: 08-31-2022 End: 63-29-4956Nuxdlycgqkwb consultation with Aditya Barth APRN.FADY Work Phone: cCF [facility] MAINStart: 29-18-2742tjlpchsmza Sagar Barth APRN.MANUFACTURING TECH Work Phone: NEUR HEADACHE [facility] INDEPENDENCEComment on above:Pain Start: 08-08-2022 End: 63-74-1939tsiycppflfUcixiil Samples Work Phone: NeurologyComment on above:Intractable chronic migraine without aura and with status migrainosus (Primary Dx)Start: 08-08-2022 End: 48-54-2718Fflzdfqgnjch consultation with Jodi Borrego MD Work Phone: ccF [facility] MAINStart: 53-69-1471pgbiukhxir Jesse Samples Work Phone: NeurologyComment on above:Name of medicationStart: 07-28-2022 End: 06-10-6007swsrldljjaIgfczjtf Main Chair 8 Work Phone: NeurologyComment on above:Intractable chronic migraine without aura and with status migrainosus (Primary Dx)Start: 07-21-2022 ambulatoryDR ZAY ROOPA .Facility:C0Wpmyk: 16-34-5316Czdgnpkim for other preprocedural examinationDR ZAY ROOPA .[facility] Hospitaltart: 07-12-2022 End: 46-83-5250oejvbdypfxJA ZAY ROOPA .Facility:O0Befgt: 07-12-2022 End: 70-65-5675Vzhaxqklx for other preprocedural examinationDR ZAY ROOPA . Facility:T5Wflxp: 88-57-8343ctchijhlxgLY-C SUZAN Paytoncility:[facility] Start: 43-85-6322Tmudiyeqv encounterSagar Barth APRN.CNP Work Phone: NeurologyComment on above:Appointment (infusion)Start: 06-20-2022 End: 56-27-0607gaijvbkorkVDBNZ SAYFacility:B5Dypvu: 06-19-2022 End: 44-15-1988fnvsoclyfqDAHMRE RODRIGUEZ .Facility:N9Apsfc: 63-06-1382Stpbfegjn to establishmentStephen Samples Work Phone: NeurologyComment on above:AdmissionStart: 06-13-2022 ambulatoryStephen Samples Work Phone: [facility] IIIStart: 06-11-2022 End: 38-24-0695takxzjehrzMXTXNTJ RAPP .Facility:K4Tnvey: 06-08-2022 End: 73-96-6914orgnlfmfwjAL CHELO PAULINO .Facility:E5Feeem: 06-07-2022 ambulatoryStephen Samples Work Phone: NeurologyComment on above:MigrainesStart: 05-23-2022 End: 46-78-1926tixfuudgfaWEAWKLL M MANONFacility:S2Jsalr: 05-08-2022 End: 43-25-1294vzdkwvvidxKIHJHB DIAB .Facility:A9Uudzl: 03-31-2022 End: 62-08-9670swohfxicakSI DERIK R DANIELSFacility:H6Byfzi: 01-14-2022 End: 34-53-7476ddywfgsungISCHPXJ D KATKOFacility:C7Jawoa: 01-07-2022 End: 73-12-6242rowdqnddorCZIBF PARKERFacility:M4Kdmld: 67-69-6181uvjeglxavi Jesse Samples Work Phone: NeurologyComment on above:MedicationStart: 12-03-2021 End: 73-38-3167Ppdneia encounter procedureStephen Samples Work Phone: NeurologyComment on above:Chronic migraine w/o aura, not intractable, w/o stat migr (Primary Dx)Start: 11-10-2021 End: 96-77-3886vcioswspouNuqaLibia Saldaña PA-C Work Phone: NeurologyComment on above:Seizure-like activity (HCC) (Primary Dx)Start: 11-10-2021 End: 89-51-0450Lxyolqxpkdon consultation with Farideh Saldaña PA-C Work Phone: ccf [facility] MAINStart: 49-81-3851hqpzextyjdsilas Dolan MD, PhD Work Phone: ccf [facility] MAINStart: 72-07-3232Pknkmix encounter Mj Dolan MD, PhD Work Phone: NeurologyComment on above:Request Veido appointment Start: 02-69-6671hfugipcaenXwusi Ying MD, PhD Work Phone: ccf [facility] MAINStart: 42-44-1553Vflxejy encounter Mj Dolan MD, PhD Work Phone: NeurologyComment on above:AppointmentStart: 11-08-2021 Telephone encounterTyrone Dolan MD, PhD Work Phone: NeurologyComment on above:OrdersStart: 11-04-2021 End: 50-45-4177ebmoawpjirPJJWI PARKERFacility:C3Xpchu: 10-29-2021 End: 56-48-0555jpmzrglwvwObsfo Ying MD, PhD Work Phone: NeurologyComment on above:Psychogenic nonepileptic seizure (Primary Dx); Spells of trembling; Chronic intractable headache, unspecified headache typeStart: 10-29-2021 End: 71-52-2523Owextkfahure consultation with Alvaro Dolan MD, PhD Work Phone: ccf [facility] MAINStart: 02-60-4116Ziflers encounter Becka Storey MD Work Phone: NeurologyComment on above:Seizure-like activity (HCC) (Primary Dx)Start: 10-19-2021 End: 14-04-9559Ppztgtftyk and management of [facility] Insanetart: 10-19-2021 End: 02-07-6344Yhdzgvkens and management of inpatientLucila Mota MD Work Phone: STVZ 1B Neuro ICUStart: 10-19-2021 End: 11-35-7397bqctdvtftjHRKRCC H FAWWADFacility:L1Jhhte: 10-07-2021 End: 79-37-4292cyfjkiadynQC ZAYVikas GREERO .Facility:V7Xeguc: 10-06-2021 End: 12-54-4909mfwtqxwyfrMXBBLYC D KATKOFacility:L2Dchbz: 10-03-2021 End: 02-40-5738oweyyunpluFENPH PARKERFacility:K7Gbasv: 10-01-2021 End: 81-70-3364Jilnjdpgvz and management of inpatientDR DERIK WEBERFacility:H1 Start: 17-19-6786Nbtrsffzp for preprocedural laboratory examinationDR ZAY BLAS .[facility] HospitalStart: 09-29-2021 End: 13-81-1986zppsyesghuBO ZAY GREERO .Facility:F5Anqns: 09-29-2021 End: 00-95-4330Ckptlftkk for preprocedural laboratory examinationDR ZAY GREERO .Facility:F5Zbjfl: 09-21-2021 End: 84-97-2792rtttspojylVL DERIK WEBERFacility:R7Apcix: 09-14-2021 End: 01-32-5286ktkhawuvtkWB DERIK WEBERFacility:T4Gadtw: 08-14-2021 End: 99-66-4524osyhchvbddRREJWU RAUCHFacility:E2Tbnfi: 08-14-2021 End: 31-60-7619zvbfddebmwBJLEIR RAUCHFacility:S4Cjxff: 12-24-2020 End: 09-69-7542Xyvkageeu department patient visitDERIK KENYONdrakevikas [facility] Connecticuttart: 12-24-2020 End: 86-71-6580Uflvyxitq department patient visitJosetamela Joshua DO Work Phone: [facility] EDComment on above:Migraine without status migrainosus, not intractable, unspecified migraine type (Primary Dx)Start: 02-18-2020 End: 14-55-7909Bxbxebjxz encounterImad Cordelia Work Phone: NeurologyComment on above:Future Appointment ([place], [place], [place]) Procedures DateProcedureProcedure DetailPerforming ClinicianStart: 55-73-3780Audrh depression screening assessmentAssumpta Raul BIKE ASSEMBLER-MANUFACTURING TECH Work Phone: Start: 36-96-1568Hmfnk depression screening assessment Corine Gold MD Work Phone: Start: 53-33-8116Qxjus depression screening assessment Halima Johns BIKE ASSEMBLER-MANUFACTURING TECH Work Phone: Start: 14-32-5187Gtklh dip stick/tablet rgnt non-auto w/o micrscpCorey Roopa DO Work Phone: Start: 59-37-0744Fwmod depression screening assessment Corine Gold MD Work Phone: Start: 93-94-5595AXA,APTIMA HPV,AGE GDLNCorey Roopa DO Work Phone: Start: 26-98-2748Ikhiqujqdyuqs metabolic panelAnnetta Rodriguez MD Work Phone: start: 81-50-9704Nufwa s aureus methicillin resist amp probe tqJaziel Crump MD Work Phone: Start: 00-36-2618Qysaq metabolic panel calcium total Katina Debra Mckayla DO Work Phone: start: 16-50-9304Trv bact xcpt urine blood/stool aerobic Bárbara Toussaint MD Work Phone: Start: 06-01-4474Lz abdomen & pelvis w/contrast materialJohnirene Velazquez MD Work Phone: Start: 04-08-2024 End: 56-60-6080Gchvr metabolic panel calcium totalDaniel Compa Melton DO Work Phone: [phone]: 06-25-6378Yntyxey function panelYordy Melton DO Work Phone: [phone]: 50-21-6293Iehwx dip stick/tablet rgnt auto w/o microscopyDaconstantine Melton DO Work Phone: Start: 38-00-0353Nwdzlha bacterial quanttative colony count urineJosemaj Velazquez MD Work Phone: Start: 03-43-5438Kiqximfwvm exam chest single view Rohan Velazquez MD Work Phone: Start: 21-61-7538ZUAE/FLU A+B/RSV BY NAAT/MOLECULAR (M4RT COLLECTION TUBE)Rohan Velazquez MD Work Phone: Start: 06-61-6739Fgv routine ecg w/least 12 lds trcg only w/o i&Cheryl Velazquez MD Work Phone: Start: 04-08-2024 End: 67-88-9072Uqyjr count complete auto&auto difrntl wbcMotim Dixon MD Work Phone: Start: 04-08-2024 End: 87-51-6411Skshngs bacterial blood aerobic w/id isolatesDaconstantine Melton DO Work Phone: Start: 87-30-2527Vjxbk depression screening assessment Svetlana HERNANDEZ Work Phone: Start: 14-77-5715Tuwtnceg screenMetro 3Start: 81-60-7251Jypyt typing serologic Gabriela Martinez MD Work Phone: Start: 12-28-2460EKXJSIQI Tyson Martinez MD Work Phone: Start: 70-54-8057Hyn routine ecg w/least 12 lds trcg only w/o i&Verónica Martinez MD Work Phone: Start: 69-13-3796PZZWTHHYQ FUNCTION TESTSopal Peña DO Work Phone: Start: 52-63-4368AG PELVIS W/ TRANSVAGINALGeneric External Data ProviderStart: 26-64-7031Snzpczeh identified in Urine by Culture Generic External Data ProviderStart: 95-53-9913Yiqja depression screening assessmentMundo Martinez MD Work Phone: Start: 66-68-7565Tmxuy depression screening assessment Tyrone Dolan MD, PhD Work Phone: Start: 94-17-6323VUS VIDEO MONITORINGMaanupama Perez BIKE ASSEMBLER - MANUFACTURING TECH Work Phone: Start: 27-90-9046FZWRR METABOLIC PANEL W/ REFLEX TO MG FOR LOW KChan Rikki Mota MD Work Phone: Start: 77-70-3694Rjfrw count complete auto&auto difrntl wbcMaanupama Perez BIKE ASSEMBLER - MANUFACTURING TECH Work Phone: Start: 12-48-7817MHTKZCUY PLATELET FRACTIONMaanupama Perez BIKE ASSEMBLER - MANUFACTURING TECH Work Phone: Start: 56-98-6530Bbono of lactateMaanupama Perez BIKE ASSEMBLER - MANUFACTURING TECH Work Phone: Start: 78-44-3954Pqo routine ecg w/least 12 lds w/i&r Lo Perez BIKE ASSEMBLER - MANUFACTURING TECH Work Phone: Start: 92-29-0808Iuh brain brain stem w/o w/contrast materialMaanupama Perez BIKE ASSEMBLER - MANUFACTURING TECH Work Phone: Start: 26-28-0227WVEAQEODYNH CARE EVALUATION ONLY Lo Perez BIKE ASSEMBLER - MANUFACTURING TECH Work Phone: Start: 47-07-6861Cufakrtwq of Bilateral Fallopian Tubes, Open ApproachINGRID BRICE .Start: 44-00-7323Ybzphmlvl of Uterus, Open ApproachINGRID BRICE .Start: 77-83-9875Cobdu count complete auto&auto difrntl wbcKeven Ching DO Work Phone: Start: 70-00-9216Yd head/brain w/o contrast material Keveneduardo Ching DO Work Phone: Plan of Treatment DateCare ActivityDetailAuthorStart: 17-60-7215Ixurt BMI ScreeningAdult BMI ScreeningMer[facility] SystemStart: 19-94-9396Spdjxcivxt ScreeningDepression ScreeningRegency Hospital Companyca [facility] SystemStart: 46-96-0174Kripkrh ScreeningTobacco ScreeningRegency Hospital Companyca [facility] SystemStart: 90-79-7340Dkvuu BMI ScreeningAdult BMI ScreeningRegency Hospital Companyca [facility] SystemStart: 60-84-8526Xwehgju ScreeningTobacco ScreeningRegency Hospital Companyca [facility] SystemStart: 56-68-9871Tcvow BMI ScreeningAdult BMI ScreeningRegency Hospital Companyca [facility] SystemStart: 43-27-5510Nvaejnrqms ScreeningDepression ScreeningMer[facility] SystemStart: 76-46-3749Vrjrssg ScreeningTobacco ScreeningMer[facility] Health [facility] SystemStart: 70-69-8001Xnjrw BMI ScreeningAdult BMI ScreeningRegency Hospital Companyca [facility] SystemStart: 30-07-3161Hqzfs BMI ScreeningAdult BMI ScreeningRegency Hospital Companyca [facility] SystemStart: 48-18-6248Swgezsp ScreeningTobacco ScreeningMer[facility] SystemStart: 32-58-6091MXlN,Tdap and Td Vaccines (7 - Td or Tdap)DTaP,Tdap and Td Vaccines (7 - Td or Tdap)[facility] Start: 17-28-9536LAoB/Tdap/Td vaccine (7 - Td or Tdap)DTaP/Tdap/Td vaccine (7 - Td or Tdap)[facility]ENTERStart: 77-29-1217Kqcqg microalbumin profile [facility] Centertart: 96-62-5387Ukqqd BMI ScreeningAdult BMI ScreeningMer[facility] SystemStart: 99-18-5573Ejnxagvuqn ScreeningDepression ScreeningMer[facility] Health [facility] Hospital SystemStart: 41-13-5725Phtldeo ScreeningTobacco ScreeningRegency Hospital Companyca [facility] SystemStart: 78-05-3113Jjbfzqp ScreeningTobacco ScreeningRegency Hospital Companyca [facility] SystemStart: 39-83-8789Uidiq BMI ScreeningAdult BMI ScreeningProTrihealth Good Samaritan Hospitalca [facility] SystemStart: 14-28-0052Agitkwf ScreeningTobacco ScreeningSelect Medical [facility] Start: 21-69-2839Fslae BMI ScreeningAdult BMI ScreeningRegency Hospital Companyca [facility] Start: 78-73-0889Yawywzq ScreeningTobacco ScreeningRegency Hospital Companyca [facility] SystemStart: 36-60-7239Rqphv BMI ScreeningAdult BMI ScreeningRegency Hospital Companyca [facility] SystemStart: 71-18-6736Xtyjyozxpx ScreeningDepression ScreeningRegency Hospital Companyca [facility] SystemStart: 78-08-3127Fincjjo ScreeningTobacco ScreeningRegency Hospital Companyca [facility] SystemStart: 84-46-0321Odxys BMI ScreeningAdult BMI ScreeningRegency Hospital Companyca [facility] SystemStart: 55-19-6942Kqkev BMI ScreeningAdult BMI ScreeningRegency Hospital Companyca [facility] SystemStart: 66-67-0284Ebmdqjgqql ScreeningDepression ScreeningMer[facility] SystemStart: 89-44-4902Jcaspfm ScreeningTobacco ScreeningMer[facility] Health [facility] Hospital SystemStart: 47-83-5300Yxbwp BMI ScreeningAdult BMI ScreeningRegency Hospital Companyca [facility] SystemStart: 34-58-1618Zbqjgyt ScreeningTobacco ScreeningRegency Hospital Companyca [facility] SystemStart: 45-80-1773Hoofm BMI ScreeningAdult BMI ScreeningAtrium Health Wake Forest Baptisttart: 76-32-1590Quwomzt ScreeningTobacco ScreeningAtrium Health Wake Forest Baptisttart: 03-25-2025 End: 97-34-5785Mirtezz encounter ipzgvsgpp44/03/2026 9:45 AM EST Office Visit [facility] [address] [place] [phone] Vincent Peña DO [address] [address] [facility]/Sleep MedicineStart: 20-89-7162Llqpa BMI ScreeningAdult BMI Screening [facility] SystemStart: 62-16-6216Jtgtgzi ScreeningTobacco Screening [facility] SystemStart: 13-34-5732Acppi BMI ScreeningAdult BMI Screening [facility] SystemStart: 58-78-4835Ifgfadp ScreeningTobacco Screening [facility] SystemStart: 02-27-2025 End: 01-82-9208Zgcvdkjg Ckhbyen6902/27/2025 8:00 PM EST Clinical Support [facility] [address] [place] [phone] Corine Gold MD [address] [place] [address] [facility] Sleep DisordersStart: 01-30-2025 End: 99-76-0361Azaehhyu Pjqgmdb7301/30/2025 8:00 PM EST Clinical Support [facility] [address] [place] [phone] Corine Gold MD [address] [place] [address] [facility] Sleep DisordersStart: 01-02-2025 End: 04-51-0342Rapxwqf encounter idxspkkkz09/13/2025 11:15 AM EST Office Visit [facility] [address] [place] [phone] Corine Gold MD [address] [place] [address] [facility] MedicineStart: 12-17-2024 End: 84-11-6508Hgcvfqe encounter wjldmeqio33/28/2025 9:30 AM EDT Office Visit [facility] [address] [phone] Vincent Peña DO [address] [address] [facility]/Sleep MedicineStart: 12-10-2024 End: 25-56-0253Pbfeyax encounter upnfmoqkz16/21/2025 2:30 PM EDT Office Visit [facility] [address] [place] [address] [place] [address] Corine Gold MD [address], [place], [place] [phone] [facility] MedicineStart: 12-10-2024 End: 77-51-2353Jeswfvqhzfgovex 4 or more parameters with PAP titration Polysomnography 4 or more parameters with PAP titration Sleep Center Routine JUAN DAVID (obstructive sleepapnea) Expected: 12/10/2024 (Approximate), Expires: 12/10/2025[facility] SystemComment on above:Expected: 12/10/2024 (Approximate), Expires: 12/10/2025Start: 12-10-2024 End: 36-81-8766VUC DiagnosticPSG Diagnostic Sleep Center Routine JUAN DAVID (obstructive sleep apnea) Expected: 12/10/2024 (Approximate), Expires: 12/10/2025[facility] SystemComment on above:Expected: 12/10/2024 (Approximate), Expires: 12/10/2025Start: 12-10-2024 End: 22-81-7236FQRE-CoV-2 (COVID-19) RNA [Presence] in Respiratory specimen by SAURABH with probe detectionSARS COV 2 (COVID-19) Microbiology Routine JUAN DAVID (obstructive sleep apnea) Expected: 12/10/2024 (Approximate), Expires: 03/12/2025[facility] Work Phone: Comment on above:Expected: 12/10/2024 (Approximate), Expires: 03/12/2025Start: 10-25-2024 End: 13-32-6427lnysscjsab66/05/2025 1:30 PM EDT [facility] [address] [place] [address] VyeptiNeurologyComment on above: VyeptiStart: 63-78-6600Rftswzxxh vaccinationMercy Health [facility] Hospital SystemStart: 10-15-2024 End: 58-05-4536Hjnqjph encounter /26/2025 8:10 AM EDT Office Visit [facility] [address] [place] [address] Zay Blas, [address] [place] [address] [facility] OBStart: 09-24-2024 End: 24-82-9148rrznwtzcpc86/05/2025 10:00 AM EDT [facility] Neurology [address] [place] [address] Curtis Lepe PA-C [address] [place], [place] [phone] Head ache controlNeurologyComment on above:Head ache controlStart: 09-03-2024 End: 79-06-5595Cymuxbt encounter vdvvszjed12/15/2025 10:20 AM EDT Office Visit [facility] [address] [facility] [place] [phone] Zay Blas, [address] [place] [address] ArrivedNOMS [facility] OBComment on above:ArrivedStart: 08-20-2024 End: 71-49-0424Yxeadqs encounter wouizwqwf20/01/2025 9:15 AM EDT Office Visit Neurology [address] [place] [address] Patricia Franco PA-C [address] [place] [address] INFUSIONDAY 3NeurologyComment on above:INFUSION DAY 3Start: 08-20-2024 End: 80-37-0093ujdyaqbtfd21/01/2025 9:00 AM EDT Infusion Center Neurology [address] [place] [address] NON-DHE 3NeurologyComment on above: NON-DHE 3Start: 08-19-2024 End: 90-19-9984cgbnptzxeh82/30/2025 9:00 AM EDT Infusion Center Neurology [address] [place] [address] NON-DHE 2NeurologyComment on above: NON-DHE 2Start: 08-19-2024 End: 59-81-4504Zbwqmuw encounter vkiiujisf53/30/2025 9:00 AM EDT Office Visit Neurology [address] [place] [address] Raiza Shields APRN.MANUFACTURING TECH [address] [place] [address] Infusion dayNeurologyComment on above:Infusion dayStart: 08-02-2024 End: 84-28-8653Bakwevh encounter yrcydzcga10/13/2025 11:00 AM EDT Office Visit Neurology [address] [place] [address] Curtis Lepe PA-C [address] [place] [address] INFUSION DAY 1 - PT ARRIVES AT 10AMNeurologyComment on above:INFUSION DAY 1 - PT ARRIVES AT 10AMStart: 08-02-2024 End: 96-17-2593yulnxbdihi61/13/2025 10:00 AM EDT Infusion Center Neurology [address] [place] [address] NON-DHE 1 per PSNeurologyComment on above:NON-DHE 1 per PSStart: 07-25-2024 End: 25-08-9478nykiwxnjrf09/05/2025 1:00 PM EDT Infusion Center Neurology [address] [place] [address] VyeptiNeurologyComment on above: VyeptiStart: 07-01-2024 End: 70-79-6869Selajse encounter zverjignn52/12/2025 8:30 AM EDT Office Visit [facility] [address] [facility] [place] [phone] Zay Blas, DO [address] [facility] [place] [address] Juan M RAJPUT OBComment on above:ArrivedStart: 06-10-2024 End: 96-30-7757JLG ISOLATION AND STORAGEDNA ISOLATION AND STORAGE Lab Routine Family history of genetic disorder Expected: 06/10/2024 (Approximate), Expires: 06/10/2025[facility]Comment [facility] above:Expected: 06/10/2024 (Approximate), Expires: 06/10/2025Start: 06-10-2024 End: 78-68-2468VODOJWAA SPECIMEN LABEL- REQUIRED FOR INHOUSE GENETIC TESTING GENETICS SPECIMEN LABEL- REQUIRED FOR INHOUSE GENETIC TESTING Lab Routine Family history of geneticdisorder Expected: 06/10/2024 (Approximate), Expires: 06/10/2025[facility] Work Phone: comment on above:Expected: 06/10/2024 (Approximate), Expires: 06/10/2025Start: 06-06-2024 End: 12-96-7188Glrezsflhygr consultation with crczyen9106/06/2024 4:30 PM EDT Telemedicine [facility] [address] [place] [address] [place] [address] Corine Gold MD [address] [place] [address] [facility] MedicineStart: 05-28-2024 End: 89-02-5559Vsanvoe encounter ywfataptj21/08/2025 1:00 PM EDT Office Visit [facility] [address] [address] Vincent Peña DO [address] [address] [facility]/Sleep MedicineStart: 05-14-2024 End: 54-05-7114Gonzrse encounter bmucsdwzw53/25/2025 9:00 AM EDT Office Visit [facility] [address] [place] [phone] Svetlana Ye PA [address] [place] [address] [facility] - Medical OncologyStart: 05-03-2024 End: 25-41-9799stvaxhgqit78/14/2025 9:30 AM EDT [facility] Neurology [address] [place] [address] Curtis Lepe PA-C [address] [place] [address] Head aches adding something elseNeurologyComment on above:Head aches adding something elseStart: 05-02-2024 End: 60-79-6146wbftmmehvr11/13/2025 2:30 PM EDT Infusion [facility] Neurology [address] [place] [address] vyepti infusionNeurologyComment on above:vyepti infusionStart: 04-30-2024 End: 54-77-7601Meuuvnb encounter tijlenmxp30/11/2025 9:00 AM EDT Office [facility] [address] [place] [phone] Svetlana Ye PA [address] [place] [address] Joie Antonio [facility] Medical OncologyStart: 04-25-2024 End: 25-54-1681Dyjedcm encounter hyqhtoatv31/06/2025 1:00 PM EST Office Visit [facility] [address] [facility] [place] [address] [place] [address] Corine Gold MD [address] [place] [address] [facility] MedicineStart: 04-16-2024 End: 27-05-2959Qohzdxu encounter esdmejajy77/25/2025 8:30 AM EST Office Visit [facility] [address] [facility] [address] [address] Zay Blas, [address] [place] [address] [facility] BCP OBStart: 04-15-2024 End: 89-07-0844Ngttwno encounter vfleqthyr51/24/2025 9:00 AM EST Office Visit [facility] Gynecology Oncology, A Department of [facility] [address] [place] [address] Svetlana Ye PA [address] [place] [address] [facility] Gynecology Oncology, A Department of [facility]: 04-10-2024 End: 41-69-7002Brzmcnw encounter vyknqxslh37/19/2025 11:30 AM EST Office Visit [facility] [address] [place] [phone] Svetlana Ye PA [address] [facility] [place] [phone] (Work) Joie Fernández [place] [facility] - Medical OncologyStart: 04-10-2024 End: 20-96-6941Hiehecnsylks / ancillary services wrwvouroen38/19/2025 9:30 AM EST Ancillary Procedure [facility] [address] [facility] [place] [phone] [facility] BCP OBStart: 03-29-2024 End: 99-18-7192djsyzeooqe07/07/2025 1:30 PM EST Infusion Center Neurology [address] [place] [address] vyepti infusionNeurologyComment on above:vyepti infusionStart: 03-28-2024 End: 16-02-8110Qjavnchal to same day surgery uajfvp5403/28/2024 9:00 AM EST - 03/28/2024 12:45 PM EST Surgery [facility] Surgery [address] [place] [phone] Mundo Martinez MD [address] [place] [address] DAVINCI LYSIS OF ADHESIONSOhioHealth [facility] SurgeryComment on above:DAVINCI LYSIS OF ADHESIONSStart: 03-28-2024 End: 84-58-0810XTLRPXC LYSIS OF ADHESIONSDAVINCI LYSIS OF ADHESIONS OVARIAN CYST BILATERAL 03/28/2024 9:00 AM [facility]: 03-28-2024 End: 28-86-9157UZUUPBP SALPINGO OOPHORECTOMYDAVINCI SALPINGO OOPHORECTOMY OVARIAN CYST BILATERAL 03/28/2024 9:00 AM [facility]: 03-46-2526Rslzdyftnp hospital visit by ijmaqlfuk21/06/2025 9:00 AM EST Hospital Encounter [facility] Surgery [address] [place] [phone] Mundo Martinez MD [address] [place] [address] [facility] Surgery Start: 03-25-2024 End: 63-49-6922Jthotkl encounter kvhfkbmih55/03/2025 2:15 PM EST Procedure [facility] On [address] [address]CttOyejpu [facility] On [facility] Start: 03-22-2024 End: 43-70-8923euchtbzqrz38/31/2025 1:30 PM [facility] Infusion Center Neurology [address] [place] [address] vyepti infusionNeurologyComment on above:vyepti infusionStart: 03-20-2024 End: 84-79-0012LN Chest WO contrastCT chest without contrast Imaging Routine Moderate asthma with acute exacerbation, unspecified whether persistent Expected: 03/20/2024, Expires: 03/20/2025[facility] Work Phone: Comment on above:Expected: 03/20/2024, Expires: 03/20/2025Start: 02-28-2024 End: 81-41-9680ALC tumor markerAFP tumor marker Lab Routine Complex ovarian cyst Expected: 02/28/2024 (Approximate), Expires: 02/27/2025NOMN HealthcareComment on above:Expected: 02/28/2024 (Approximate), Expires: 02/27/2025Start: 02-28-2024 End: 45-49-3460VK 125CA 125 Lab Routine Complex ovarian cyst Expected: 02/28/2024 (Approximate), Expires: 02/27/2025NOMN HealthcareComment on above: Expected: 02/28/2024 (Approximate), Expires: 02/27/2025Start: 02-28-2024 End: 54-72-8456Ihtpdshmlizywemr Ag [Mass/volume] in Serum or PlasmaCEA Lab Routine Complex ovarian cyst Expected: 02/28/2024 (Approximate), Expires: 02/27/2025NOMN HealthcareComment on above:Expected: 02/28/2024 (Approximate), Expires: 02/27/2025Start: 02-28-2024 End: 72-48-8373HJH, tumor markerHCG, tumor marker Lab Routine Complex ovarian cyst Expected: 02/28/2024 (Approximate), Expires: 02/27/2025[facility] Comment on above:Expected: 02/28/2024 (Approximate), Expires: 02/27/2025Start: 02-28-2024 End: 90-55-7117Irhyjkk dehydrogenase, isoenzymesLactate dehydrogenase, isoenzymes Lab Routine Complex ovarian cyst Expected: 02/28/2024 (Approximate), Expires: 02/27/2025[facility] Work Phone: comment on above:Expected: 02/28/2024 (Approximate), Expires: 02/27/2025Start: 02-28-2024 End: 69-52-4085ML PelvisUS Pelvis w/ TV Imaging Routine Pelvic pain in female Complex ovarian cyst Expected: 02/28/2024, Expires: 02/27/2025[facility] Comment on above:Expected: 02/28/2024, Expires: 02/27/2025Start: 02-28-2024 End: 27-14-9127Rnkoxec encounter ntecknbrq16/08/2025 11:10 AM EST Office Visit [facility] [address] [facility] [place] [phone] Zay Blas DO [address] [facility] [place] [address] N[facility] BCP OBStart: 02-22-2024 End: 07-71-6605Ifcuvse encounter irrmoaeve05/02/2025 11:15 AM EST Office Visit [facility] [address] [place] [address] Lamont Blair MD [address] [place] [address] [facility] FMStart: 02-09-2024 End: 90-57-5006NK Abdomen and Pelvis WO and W contrast IVCT abdomen pelvis w and wo IV contrast Imaging Routine Generalized abdominal pain Intractable nausea and vomiting Expected: 02/09/2024, Expires: 02/08/2025N[facility]wapr Work Phone: Comment on above:Expected: 02/09/2024, Expires: 02/08/2025Start: 02-05-2024 End: 43-65-4063sdomlmgqcu71/16/2024 1:45 PM EST [facility] Neurology [facility] [address] [facility] [address] Sagar Barth APRN.MANUFACTURING TECH [address] [facility], [id number] MingrainsNeurology Headache [facility] Community Hospitalomment on above:MingrainsStart: 01-24-2024 End: 75-75-5091Jtzvhcr encounter azycwhlpg09/04/2024 3:20 PM EST Office Visit [facility] OB [address] [place] [address] Zay Blas, DO [address] [address] NOM[facility] BCP OBStart: 01-23-2024 End: 43-98-7172Errgf metabolic 1998 panel - Serum or PlasmaBasic metabolic panel Lab Routine Generalized edema Expected: 01/23/2024 (Approximate), Expires: 04/2024NOMN HealthcareComment on above:Expected: 01/23/2024 (Approximate), Expires: 01/22/2025Start: 01-23-2024 End: 62-29-8127UEF W Auto Differential panel - BloodCBC and differential Lab Routine Generalized edema SOB (shortness of breath) on exertion Expected: 1 03/25/2023 (Approximate), Expires: 01/22/2025[facility] HealthcareComment on above: Expected: 01/23/2024 (Approximate), Expires: 01/22/2025Start: 01-23-2024 End: 44-46-5747Bpmxxtw function 2000 panel - Serum or PlasmaHepatic function panel Lab Routine Generalized edema SOB (shortness of breath) on exertion Expected: 01/23/2024 (Approximate), Expires: 01/22/2025[facility] HealthcareComment on above:Expected: 01/23/2024 (Approximate), Expires: 01/22/2025Start: 01-23-2024 End: 15-71-7217Jqfjnrtkifg peptide B [Mass/volume] in BloodB-type natriuretic peptide Lab Routine Generalized edema Expected: 01/23/2024 (Approximate), Expires: 01/22/2025[facility] HealthcareComment on above:Expected: 01/23/2024 (Approximate), Expires: 01/22/2025Start: 01-23-2024 End: 15-72-2853SB Chest 2 ViewsXR chest 2 views Imaging Routine Mild persistent asthma with (acute) exacerbation (CMS/HCC) Generalized edema SOB (shortness of breath) on exertion Expected: 01/23/2024, Expires: 01/22/2025[facility] Work Phone: Comment on above:Expected: 01/23/2024, Expires: 01/22/2025Start: 01-23-2024 End: 49-36-5529Xhuhtxp encounter procedureNOMS CWM FMComment on above:Arrived Start: 01-22-2024 End: 94-45-7057Rdabwvo encounter cmwhfueus85/02/2024 2:30 PM EST Office Visit Neurology [address] [place] [address] Raiza Shields, BIKE ASSEMBLER.MANUFACTURING TECH [address] [place] [address] Infusion Day #3NeurologyComment on above:Infusion Day #3Start: 01-22-2024 End: 90-10-6983euzgtfpfdc53/02/2024 2:00 PM EST Infusion Center Neurology [address] [place] [address] Non-DHE Infusion Day #3Neurology Comment on above:Non-DHE Infusion Day #3Start: 01-19-2024 End: 53-61-3082jinlgmgzuc98/29/2024 9:30 AM EST Infusion Center Neurology [address] [place] [address] Non-DHE Infusion Day #2Neurology Comment on above:Non-DHE Infusion Day #2Start: 01-09-2024 End: 37-46-2187Skabuxe encounter procedureNOMS CWM FMComment on above:Arrived Start: 01-05-2024 End: 65-57-5760mplbwcmbxy52/15/2024 1:00 PM EST Infusion Center Neurology [address] [place] [address] VyeptiNeurologyComment on above: VyeptiStart: 12-12-2023 End: 06-14-9126Btyicvm encounter qweoowzuu48/22/2024 3:45 PM EDT Office Visit [facility] C[facility] FM [address] [place] [address] Lamont Blair MD [address] [place] [address] NOMS CWM FMStart: 12-11-2023 End: 14-87-5173Pynabsd encounter jiktbiqhy36/21/2024 1:00 PM EDT Office Visit [facility] OB [address] [facility] [place] [address] Zay Blas, [address] [place] [address] [address] [place], [place] [phone] ArrivedNOMS BCP OBComment on above:ArrivedStart: 11-15-2023 End: 46-95-8566Kermtpe encounter hfdftnecb34/25/2024 8:45 AM EDT Office Visit [facility] FM [address] [place] [address] Lamont Blair MD [address] [place] [phone] ArrivedNOMS CWM FMComment on above:ArrivedStart: 11-06-2023 End: 28-10-5417Buskzqa encounter /16/2024 11:30 AM EDT Office Visit [facility] NEUR [address] [facility] [address] [place] [address] Jose Martin Lopez MD [address] [facility] [address] [place] [phone] NOMS SWS NEURStart: 10-31-2023 End: 30-28-4095Qxkkyeq encounter phluyzocb10/10/2024 2:30 PM EDT Office Visit Neurology [address] [place] [address] Tyrone Dolan MD, PhD [address] [facility] [address] [place] [address] SeizureNeurologyComment on above:SeizureStart: 16-20-6636Ijzpp-19 Vaccine ( season)Covid-19 Vaccine ()[facility]: 09-26-5606Paqrt-19 Vaccine ()Covid-19 Vaccine ()[facility]: 65-26-9864Pajtczdsb vaccinationLake [facility] Start: 10-13-2023 End: 90-40-0367bsekeqquyj88/23/2024 1:00 PM EDT Infusion Center Neurology [address] [place] [phone] Vyepti InfusionNeurologyComment on above:Vyepti InfusionStart: 10-10-2023 End: 76-10-2091Xhkmcjm encounter /20/2024 9:15 AM EDT Office Visit [facility] FM [address] [place] [address] Lamont Blair MD [address] [address] ArrivedNOMS CWM FMComment on above:ArrivedStart: 09-19-2023 End: 06-62-5001Gpmoexf encounter ttptyipfw26/30/2024 2:30 PM EDT Office Visit Neurology Headache [facility] [address] [place] [address] Sagar Barth APRN.MANUFACTURING TECH [address] [place] [address] Migraines Nerve BlockNeurology Headache [facility] FHCComment on above:Migraines Nerve BlockStart: 08-18-2023 End: 04-26-8500Gkfnybj encounter bnhcudkcd91/28/2024 9:30 AM EDT Office Visit Neurology [address] [place] [address] Curtis Lepe PA-C [address] [place] [address] NERVEBLOCKNeurologyComment on above:NERVE BLOCKStart: 82-73-9543Qncpuqjkjt ScreeningDepression ScreeningFayette County Memorial Hospital Health SystemStart: 35-25-9073Itmznoezfi AssessmentDepression AssessmentAdena Pike Medical Centertart: 49-62-0734Sjxcd depression screening assessmentDEPRESSION SCREENINGAdena Pike Medical Centertart: 79-16-9512Ouzlt- 19 Vaccine ()Covid-19 Vaccine ()[facility] Cent[facility]: 48-45-8536Dkqcmzbdz vaccinationAdena Pike Medical Centertart: 02-20-2022 DEPRESSION ASSESSMENTDEPRESSION ASSESSMENTCleMedina Hospitaltart: 10-26-2021 End: 07-92-8891UIUD-CoV-2 (COVID-19) RNA [Presence] in Respiratory specimen by SAURABH with probe detectionPRE-PROCEDURE & PRE-OPERATIVE COVID Microbiology Routine Seizure-like activity (HCC) Expected: 10/26/2021, Expires: 10/26/2022[facility] Work Phone: Comment on above:Expected: 10/26/2021, Expires: 10/26/2022Start: 40-90-9505Dbpwyhbzm vaccinationBON ADENA HEALTH SYSTEMStart: 24-70-7676FFMMCRTSNF ASSESSMENTDEPRESSION ASSESSMENTAdena Pike Medical Centertart: 92-82-4521Rtxirfqkl vaccinationFlu vaccine (#1)[facility] Work Phone: start: 59-68-1393TDG TESTINGPAP TESTINGAdena Pike Medical Centertart: 09-24-1593Whbhylzmx for malignant neoplasm of cervixBON ADENA HEALTH SYSTEMStart: 52-53-0074Maaileuxb B Vaccine (1 of 3 - 19+ 3-dose series) Hepatitis B Vaccine (1 of 3 - 19+ 3-dose series)[facility] Start: 38-18-6485Vhkze microalbumin profileAdena Pike Medical Centertart: 11-13-2013 Adult BMI Follow Up PlanAdult BMI Follow Up [facility]art: 88-25-4775Jybhmxn ScreeningAnxiety ScreeningAdena Pike Medical Centertart: 11-13-2013 Depression ScreeningDepression ScreeningAdena Pike Medical Centertart: 11-13-2013 Hepatitis C screeningBON ADENA HEALTH SYSTEMStart: 74-14-2418AXBRWJMEI C SCREENINGHEPATITIS C SCREENINGAdena Pike Medical Centertart: 61-67-8628ABZ SCREENINGHIV SCREENINGAdena Pike Medical Centertart: 52-56-0165TGV screeningHIV ScreeningAdena Pike Medical Centertart: 41-53-3986Yxnyjalle for Chlamydia trachomatisChlamydia screenInova Fair Oaks Hospital: 79-87-9696SDO screeningHIV screenMary [place] Hospitalart: 21-92-4775GQAR TO ADULT TRANSITION ANNUAL ASSESSMENTPEDS TO ADULT TRANSITION ANNUAL ASSESSMENTAdena Pike Medical Centertart: 61-29-2104Swnsffque Vaccine (1 of 2 - 13+ 2-dose series)Varicella Vaccine (1 of 2 - 13+ 2-dose series) [facility]: 33-21-7769Qneof depression screening assessmentDEPRESSION SCREENINGAdena Pike Medical Centertart: 20-44-4182YCRSQ-19 Vaccine (1)COVID-19 Vaccine (1)[facility] Work Phone: start: 96-38-9458Deenextetv ScreenDepression ScreenInova Fair Oaks Hospital: 04-73-1273IIHJ TO ADULT TRANSITION INITIAL DISCUSSIONPEDS TO ADULT TRANSITION INITIAL DISCUSSIONAdena Pike Medical Centertart: 94-93-9734TGP VACCINE (1 - 2-dose series)HPV VACCINE (1 - 2-dose series) [facility] Cent[facility]: 02-37-3656TMI VACCINE (1 - 2-dose series)HPV VACCINE (1 - 2-dose series)[facility] Centertart: 54-28-5851MTvO/Tdap/Td Vaccine (1 - Tdap) DTaP/Tdap/Td Vaccine (1 - Tdap)[facility]: 11-13-1996 MMR Vaccine (1 of 1 - Standard series)MMR Vaccine (1 of 1 - Standard series) [facility]: 23-27-6985RAEIG-19 Vaccine (#1)COVID-19 Vaccine (#1)[facility] CENTERSolvvy Inc. [facility]ITALStart: 53-46-4484SFWEVEERN B (1 of 3 - 3- dose series)HEPATITIS B (1 of 3 - 3-dose series)[facility] Centertart: 94-53-6260Zoheuvgwm B Vaccine (1 of 3 - 3-dose series)Hepatitis B Vaccine (1 of 3 - 3-dose series)[facility] Centertart: 98-30-8283Kjagkrvxr C screening Hepatitis C [facility] [employer] Work Phone: End: 39-96-0429Rkyhs-1-Antitrypsin KfzinplxpTwghd-5-Ltstnykqitw Phenotype Lab Routine Moderate asthma with acute exacerbation, unspecified whether persistent 1 Occurrences starting 03/20/2024 until 03/20/2025[facility] HospitalStreemioComment on above:1 Occurrences starting 03/20/2024 until 0615Vwdfq-0-Lmenvkdxsfy AunfqiefrPltqh-5-Objeusuwcsf Phenotype Lab Routine Moderate asthma with acute exacerbation, unspecified whether persistent 03/20/2024 1:12 PM [employer] AnalyticsBacteria identified in Blood by Aerobe cultureBiscoot Work Phone: Bacteria identified in Urine by CultureURINE CULTURE, ROUTINE Lab Routine 01/31/2024 11:57 AM [facility] HealthBacteria identified in Wound by Aerobe cultureWound culture superficial includes gram stain Microbiology Routine 04/08/2024 8:25 PM [employer] Phone: End: 91-27-8451Zcyno Metabolic Panel w/ Reflex to MGBasic Metabolic Panel w/ Reflex to MG Lab Routine Daily for 7 Days starting 10/20/2021 until 10/26/2021 [facility] [employer] Social Phone: comment on above:Daily for 7 Days starting 10/20/2021 until 10/26/2021 End: 91-49-4671KVN W Auto Differential panel - BloodCBC with Auto Differential Lab Routine Daily for 7 Days starting 10/20/2021 until 10/26/2021, 1 completed [employer] Work Phone: comment on above:Daily for 7 Days starting 10/20/2021 until 10/26/2021, 1 completed End: 19-59-8762RKE W Auto Differential panel - BloodCBC with auto diff Lab Routine Postoperative infection, unspecified type, subsequent encounter 1 Occ urrences starting 05/02/2024 until 05/02/2025[employer] Work Phone: Comment on above:1 Occurrences starting 05/02/2024 until 05/02/2025HLAMYDIA TRACHOMATIS (GENITO/STI)CHLAMYDIA TRACHOMATIS (GENITO/STI) Lab Routine Yeast infection Ordered: 07/01/2024[employer] Comment on above:Ordered: 07/01/2024 End: 62-58-6899Givuyaakhadag metabolic 2000 panel - Serum or PlasmaComprehensive metabolic panel Lab Routine Postoperative infection, unspecified type, subsequent encounter 1 Occurrences starting 05/02/2024 until 05/02/2025[facility] HospitalExeo Entertainment SystemComment on above:1 Occurrences starting 05/02/2024 until 05/02/2025ytology Cervical or vaginal smear or scraping studyPap Smear Pathology and Cytology Routine Well woman exam with routine gynecological exam Ordered: 04/16/2024[employer] Work Phone: comment on above:Ordered: 04/16/2024 End: 42-24-6087VAD 12 leadECG 12 lead ECG Routine Bilateral ovarian cysts Preop testing 1 Occurrences starting 03/19/2024 until 03/19/2025[employer] Work Phone: Comment on above:1 Occurrences starting 03/19/2024 until 03/19/2025EKG 12 LeadEKG 12 Lead ECG Routine 10/19/2021 5:55 PM EDTBON Dovetail Work Phone: End: 98-11-2031HSTI AMBULATORY EEGEPIL AMBULATORY EEG NEUROLOGY Routine Psychogenic nonepileptic seizure Spells of trembling 1 Occurrences starting 10/29/2021 until 10/29/2022[facility] Work Phone: Comment on above:1 Occurrences starting 10/29/2021 until 10/29/2022 End: 52-80-6940ZBXT EEG LEAD PLACEMENTEPIL EEG LEAD PLACEMENT NEUROLOGY Routine Seizure-like activity (HCC) 1 Occurrences starting 10/26/2021 until 10/26/2022 [facility] Work Phone: Comment on above:1 Occurrences starting 10/26/2021 until 10/26/2022 End: 68-22-1227NSNH EEG ROUTINEEPIL EEG ROUTINE NEUROLOGY Routine Seizure-like activity (HCC) 1 Occurrences starting 11/08/2021 until 11/08/2022[facility] Work Phone: Comment on above:1 Occurrences starting 11/08/2021 until 11/08/2022EPIL VEEG ADMIT TO EMU/PMUEPIL VEEG ADMIT TO EMU/PMU NEUROLOGY Routine Seizure-like activity (HCC) Ordered: 2C[facility] Work Phone: Comment on above:Ordered: 10/26/2021Neisseria gonorrhoeae DNA [Presence] in Unspecified specimen by SAURABH with probe detection Neisseria gonorrhea DNA probe, direct Lab Routine Yeast infection Ordered: 07/01/2024[facility] ThwaprComment on above:Ordered: 07/01/2024Oxygen therapy [Minimum Data Set]Initiate Oxygen Therapy Protocol Respiratory Care Routine As Needed until discontinued starting 10/19/2021[facility] Work Phone: comment on above:As Needed until discontinued starting 2SURESWAB(R) ADVANCED VAGINITIS PLUS, TMASURESWAB(R) ADVANCED VAGINITIS PLUS, TMA Pathology and Cytology Routine Yeast infection Ordered: 07/01/2024[facility] [employer] Work Phone: comment on above:Ordered: 07/01/2024 End: 31-14-6512Zbwj and screen(includes indirect ady)Type and screen(includes indirect ady) Blood Bank Routine Bilateral ovarian cysts Preop testing 1 Occurrences starting 03/19/2024 until 03/19/2025[facility] DublinComment on above:1 Occurrences starting 03/19/2024 until 03/19/2025[facility] Immunizations Immunization DateImmunizationNotesCare RdsmuyasMntovxfk88-73-4149Rcomwygnf, injectable, Madin Curtice Canine Kidney, preservative free, quadrivalentMundo Martinez MD Work Phone: [facility] DublinAqyvyp78-69-6819gvcpldyzj virus vaccine, unspecified formulationJeeverette Ivey APRN.CNP Work Phone: [facility] - WestIwqtnc38-33-9005ekujzzpal, seasonal, injectable, preservative Brandon Martinez MD Work Phone: [facility] - DublinPlpfyz80-85-6531ygpppwovp virus vaccine, unspecified formulationCoabdoul Walton MS, [facility] Work Phone: [facility]08-01-2016tetanus toxoid, reduced diphtheria toxoid, and acellular pertussis vaccine, adsorbed Mundo Martinez MD Work Phone: [facility] - DublinBsacbl36-37-4126reovexepf, seasonal, injectable, preservative Brandon Martinez MD Work Phone: [facility] - DublinDctbpk81-17-4450jbkjiaacf, seasonal, injectable, preservative Brandon Martinez MD Work Phone: [facility]04-02-2013human papilloma virus vaccineAshley MD Work Phone: [facility]11-30-2012human papilloma virus Ashley smiley MD Work Phone: [facility]09-25-2012human papilloma virus vaccine, quadrivalentMundo Martinez MD Work Phone: [facility] - DublinAnvxrv32-84-6172rqgjeaoag, seasonal, injectable, preservative freeMundo Martinez MD Work Phone: [facility] - DublinRvzefb16-68-7126qaehdkioxckti polysaccharide (groups A, C, Y and W-135) diphtheria toxoid conjugate vaccine (MCV4P)Mundo Martinez MD Work Phone: [facility] - DublinZqqcwt46-16-6213rcwbvrchx virus vaccineMundo Martinez MD Work Phone: [facility] - DublinEoplyf22-06-6034gabftdtbr B vaccine, pediatric or pediatric/adolescent dosageMundo Martinez MD Work Phone: [facility] DublinMmztin57-33-7133lluacxfrx virus vaccineMundo Martinez MD Work Phone: [facility] DublinDgfgfi15-95-5060kelhmvxjhm, tetanus toxoids and acellular pertussis vaccineMundo Martinez MD Work Phone: [facility] [place]07-19-2002measles, mumps and rubella virus vaccineMundo Martinez MD Work Phone: [facility] DublinWarmiz08-60-2665dwyolsesry vaccine, inactivatedMundo Martinez MD Work Phone: [facility] DublinJptrhs83-81-6019mpmtiizugh, tetanus toxoids and acellular pertussis vaccine, Haemophilus influenzae type b conjugate , and poliovirus vaccine, inactivated (SYxB-Qoj-HMQ)Mundo Martinez MD Work Phone: [facility]01-14-1998measles, mumps and rubella virus vaccineMundo Martinez MD Work Phone: [facility] DublinRelixn96-53-5223alowyclwid, tetanus toxoids and acellular pertussis vaccine, Haemophilus influenzae type b conjugate , and poliovirus vaccine, inactivated (MZbS-Nmp-XKV)Mundo Martinez MD Work Phone: [facility] DublinUrvafr73-82-7783pbnbhhusgk, tetanus toxoids and acellular pertussis vaccine, Haemophilus influenzae type b conjugate , and poliovirus vaccine, inactivated (BEjL-Ujw-KTS)Mundo Martinez MD Work Phone: [facility] DublinWdtkxt09-34-9692ollewchya B vaccine, pediatric or pediatric/adolescent Esperanza Martinez MD Work Phone: [facility] DublinOandcl96-25-7043mhbekhctip, tetanus toxoids and acellular pertussis vaccine, Haemophilus influenzae type b conjugate , and poliovirus vaccine, inactivated (NAaK-Nhb-BLB)Mundo Martinez MD Work Phone: [facility] DublinRsjwmh82-62-0037wnhcvfgxw B vaccine, pediatric or pediatric/adolescent Esperanza Martinez MD Work Phone: [facility] DublinRvlrve71-55-6768eozlsrglx B vaccine, pediatric or pediatric/adolescent Esperanza Martinez MD Work Phone: [facility] Payers DatePayer CategoryPayerPolicy [id number] (Managed Care)[employer] Member Subscriber Plan / Payer (Effective 2022-Present) Name: Margaret Nicholson Relation to Subscriber: Self Name: Margaret Nicholson Payer ID: Not on file Group ID: Not on file Type: Not on file Address: [address] [id number] 2017[place] [id number] 2017- Present [id number] Medicaid [place] [id number] 2014Medicaid [id number] [id number] 2..1.225129.3.579.[id number] 2..1.768899.3.57[id number] 2..1.496689.3.579.2.5[id number] 2..1.208791.3.57[id number] 2..1.080826.3.579.[id number] 2.160.1.755820.3.579.[id number] 2..1.986746.3.579.2.33965-34-4687Qegwkyc9405545 2.160.1.245277.3.579.2.96206-74-7056Iaohvxz7028802 2.16.840.1.780507.3.579.2.73368-89-4166Cszsesi2500336 2.16.840.1.172636.3.579.2.82466-04-7667Xbvhxcq4509950 2.16.840.1.291325.3.579.2.52619-28-7585Lljwpmr1132841 2.16.840.1.990705.3.579.2.90361-86-2422Fpatihb0449137 2.16.840.1.842267.3.579.2.42822-37-5860Yffqyxj1124185 2.16.840.1.501236.3.579.2.15059-85-5345Nqukgcm1840296 2.16840.1.504232.3.579.2.86964-97-2678Rexeryw2899263 2.16840.1.460864.3.579.2.14166-89-7594Verwjvw9932717 2.16.840.1.222961.3.579.2.26462-67-8309Tfujvfi2658616 2.16.840.1.665368.3.579.2.18923-07-6260Hsfvuus7682870 2.16840.1.635393.3.579.2.28424-87-4508Akbufwq6526466 2.16.840.1.732608.3.579.2.15253-88-7965Rqssvqe9685760 2.16.840.1.026554.3.579.2.50678-67-1311Juwtmdu4642823 2.16.840.1.513202.3.579.2.88750-21-6405Oxyqpjs9141149 2.16840.1.766739.3.579.2.01093-46-9413Xjirjfr7304213 2.16.840.1.521224.3.579.2.90031-40-7020Yykguzf1551953 2.16840.1.173998.3.579.[id number] 2.16840.1.556305.3.579.2.797172-04-6762Xfdqifa8854823 2.840.1.568835.3.579.2.868835-36-9175Qnttnkc7217598 2.0.1.330567.3.579.2.656542-80-4995Haubalz8260395 2.840.1.186152.3.579.2.664020-40-0063Divsyzo3830939 2.0.1.430933.3.579.2.718689-77-8423Mbwawsg4703882 2.0.1.886351.3.579.2.657380-26-3361Xthylyh5184651 2.0.1.953009.3.579.2.085929-51-0136Jaucira2050778 2.840.1.555715.3.579.2.056944-38-6400Asyxdrs5360518 2..1.532703.3.579.2.513215-78-2023Chxmkto6173353 2.840.1.296520.3.579.2.802869-75-9825Eanczmd1966924 2.840.1.343989.3.579.2.428097-40-1386Hhhzfdw3643448 2.16840.1.685775.3.579.2.424377-60-0324Eimlgkg6085292 2.840.1.059334.3.579.2.756887-64-2947Zwqzqly743864746734 1.2.840.017477.1.13.239.2.7.3.659005.973Hwmraov92034227 2.16.840.1.219543.3.579.2.531 Social History DateTypeDetailFacilityTobacco smoking status NHISUnknown if ever smokedAdena Pike Medical Centertart: 72-90-4494Wfv Assigned At BirthNot on fileAdena Pike Medical Centertart: 12-24-2020 End: 24-80-4789Pnvijjt smoking status NHISNever smokerKettering Health – Soin Medical CenterCrystalGenomics Phone: start: 12-24-2020 End: 80-15-4126Ctelxop use and exposureNever usedCleveland Clinic Marymount HospitalStart: 12-24-2020 End: 53-64-2075Veycolx intakeEx-drinker (finding)TherapeuticsMD Phone: start: 10-16-2021 End: 79-34-7563Nntdqmmi to SARS-CoV-2 (event)Not sureAshtabula County Medical CenterVenture Technologies smoking status NHISTobacco smoking consumption unknownLake County [facility] West enStage Phone: Start: 03-03-2020 End: 92-71-3957Nyavydo of Social functionAdena Pike Medical Centertart: 03-03-2020 End: 26-77-0784Yliydhm Health Questionnaire 2 item (PHQ-2) [Reported][facility] Medical Centertart: 36-96-7663Vzaqu Depression Screening Agpveuhekf6Ypidoqslm [facility] Start: 11-15-2023 End: 79-79-3849Ntmmzpsbe beverage intakeLifetime non-drinker (finding)[facility] HealthcareStart: 53-37-5583Tvwvbig CommentCaffeine intake: >4 cups per dayNOMS HealthcareDo you belong to any clubs or organizations such as samaritan groups, unions, fraternal or athletic groups, or [...] the mortgage or rent on time?NoNOMS HealthcareStart: 90-02-3624LopAnidzr (finding)[facility] Centeredic Health SystemHow often to you have a drink containing alcohol?Monthly or lessProTrihealth Good Samaritan Hospitalca Health SystemHow many standard drinks containing alcohol do you have on a typical day?1 or 2PRegency Hospital [facility] West SystemStart: 16-99-7057Exznsia Commentsocial [facility] SystemNEGATED: Highlighted rowStart: NINFHistory of tobacco use Passive smokerNOMS Healthcare Goals DatePatient GoalDesired Activity/StatePersonal health goalComment on above: Evaluation of progress towards goal: Patient stated goal is to return home with HCC for assistance with wound care Functional Status HeiaUzbytefmbyDxckchDzrmzktt33-58-3679Vhn you deaf, or do you have serious difficulty hearingNo 04/01/2022 6:20 PM Katie Florez RN NoCmarietta memorial hospitalpeggy Mjujgg81-49-8792Qso you blind, or do you have serious difficulty seeing, even when wearing glassesNo 04/01/2022 6:20 PM Katie Florez RN NoCleveland Bfwzcq69-77-4018Jz you have serious difficulty walking or climbing stairsNo 04/01/2022 6:20 PM Katie Florez RN NoCmarietta memorial hospitalpeggy Sztbiu71-32-8092Vc you have difficulty dressing or bathingNo 04/01/2022 6:20 PM Katie Florez RN NoCmarietta memorial hospitalpeggy Rczvtb91-66-3172Jctndzu of a physical, mental, or emotional condition, do you have difficulty doing errands alone such as visiting a physician's office or shoppingNo 04/01/2022 6:20 PM Katie Florez RN No [facility] Mental Status AzqxXvqyglsssfYvcoivQklxhbih74-90-5579Nujkhxt of a physical, mental, or emotional condition, do you have serious difficulty concentrating, remembering, or making decisionsNo 04/01/2022 6:20 PM Katie Florez, PRATIBHA [facility] Clinical Notes 12-24-2020 to 12-20-2024 Note Date & QwutPauwCtiyuxzk97-47-8719 History of Present illness Narrative* Saba Fieldsaji, BIKE ASSEMBLER-MANUFACTURING TECH - 12/20/2024 10:00 AM EDT Subjective Patient [...] 03/25/2024 Prolonged emergence from general anesthesia Seizure ([facility]) Last one 03-11-2024 Past Surgical History Past Surgical History: Procedure Laterality Date APPENDECTOMY SECTION CHOLECYSTECTOMY [facility] DV5 LYSIS OF ADHESIONS N/A 03/28/2024 Performed by Mundo Martinez MD at [facility] DV5 LYSIS OF ADHESIONS N/A 03/28/2024 Performed by Jesse Sultana MD at [facility] DV5 SALPINGO OOPHORECTOMY/FROZEN SECTION Bilateral 03/28/2024 Performed by Mundo Martinez MD at [facility] DILATION AND CURETTAGE OF UTERUS PARTIAL [...] Physical Activity: Insufficiently Active (01/23/2024) Received from [facility] Exercise Vital Sign On average, how many days per week do you engage in moderate to strenuous exercise (like a brisk walk)?: 7 days On average, how many minutes do you engage in exercise at this level?: 10 min Stress: Stress Concern Present (01/23/2024) Received from [facility] [place] of Occupational Health - Occupational Stress Questionnaire Feeling of Stress : Rather much Social Connections: Socially Integrated (01/23/2024) Received from [facility] Social Connection and Isolation Panel In a typical week, how many times do you talk on the phone with family, friends, or neighbors?: More than three times a week How often do you get together with friends or relatives?: Twice a week How often do you attend samaritan or advent services?: More than 4 times per year Do you belong to any clubs or organizations such as samaritan groups, unions, fraternal or athletic groups, or [...] TWO PUFFS BY MOUTH EVERY 4 HOURS KMQJLT14 g 0 baclofen (LIORESAL) 10 mg tablet [...] NOSTRIL EVERY OTHER DAY 16 g 2 wdsicxvbokx-gojhoeizi-leqvdahi (TRELEGY ELLIPTA) 200-62.5-25 mcg blister with device [...] SARAHI Karimi 12/20/24 1320 documented in this encounterRegency Hospital CompanyFreshT Mvscnd91-91-1868 History of Present illness Narrative* Vincent Peña [...] Dupixent today Follow-up in 3 months at [facility] OSMANI Hooper presents for follow-up of [...] has been getting regular fills from [facility]. She does also note that her youngest [...] process is seen. Dr. Vincent Peña DO. [facility] Physicians Pulmonary & Critical Care Office: [phone] documented in this encounterRegency Hospital CompanyFreshT Lbuydc56-54-6553 NoteHNO ID: [id number] Author: CURTIS LEPE PA-C Service: ? Author Type: Physician Computer Numerical Control Operator Type: Progress Notes Filed: 12/13/2024 10:49 Note [...] Lymph 1.00 - 4.00 k/uL 0.84 Abs Lake <0.87 k/uL 0.06 Abs Eosin <0.46 k/uL [...] ZOLMitriptan (ZOMIG) 5 mg nasal sprayUse 1 [place] in the nose as needed at onset [...] and clear, coherent, and relevant. 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 Attention span and concentration are excellent. Cranial Nerves: VII-face is symmetric witho (more content not included)... [facility]10-24-2025 NoteHNO ID: [id number] Author: CORETTA QUINTANILLA RN Service: ? Author Type: Registered Nurse Type: Progress Notes Filed: 12/13/2024 10:37 Note Text: 0832: Patient in for day 2 of IV infusions. Patient rated headache 8/10. Patient stated severe nausea and severe dizziness. Patient educated on medications to be administered. Patient verbalized understanding and agreed to proceed with infusions. 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 She would like PRN zofran for nausea and PRN benadryl for sedation. 1036: Pts infusions complete. Pt tolerated infusion well. Pt rated headache 4/10. Pt stated severe nausea and moderate dizziness. Pt preferred second line PRN phenergan for nausea over zofran. Phenergan administered. Pt discharged from treatment room via wheelchair to her in the lobby.[facility]10-23-2025 Miscellaneous Notes* Telephone Encounter - Vielka Hussein - 12/12/2024 10:57 AM EDT 12/10 Order received 12/12 Called PT LM to schedule sleep study. Comp Order and 12/10/24 M. [facility] Epic Notes documented in this encounterSelect [facility]10-23-2025 Telephone encounter Note* Telephone Encounter - Vielka Hussein - 12/12/2024 10:57 AM EDT 12/10 Order received 12/12 Called PT LM to schedule sleep study. Comp Order and 12/10/24 M. Epic Notes [facility] Medical CenterCleartrip Asimdx83-07-0346 NoteHNO ID: [id number] Author: LENNIE PALACIOS, PRATIBHA Service: ? Author [...] given. Patient with moderate dizziness, transferred to [facility] for discharge in wheelchair.[facility]10-23-2025 NoteHNO ID: [id number] Author: BASIL CORNELIUS, Service: ? Author Type: Physician Type: Progress Notes Filed: 12/12/2024 09:58 Note Text: [facility]ache [facility] Facial [facility] [place] [address] [place] [address] Headache Center - Follow up Visit Accompanied [...] this. Current treatment: Preventative: Vyepti 300 mg p6tcknon Abortive: Zavzpret 10 mg IN prn Zomig IN prn Phenergan Last office visit 09/24/2024: Headache 1 Location: holcephalic Quality/Description: throbbing and pressure Associated Symptoms: Photophobia: yes Phonophobia: yes Nausea: yes Vomiting: yes Other symptoms: osmophobia and vertigo Worse with activity: yes Number of migraine headache days/month (more content not included)...[facility]10-22-2025 NoteHNO ID: [id number] Author: LENNIE PALACIOS RN Service: ? Author [...] sleepy and discharged in a wheelchair to ,(motor coach bus driver). Toradol given after Vyepti flush . Headache unchanged still /. Patient scheduled with Dr. Cornelius tomorrow morning.[facility]10-22-2025 NoteHNO ID: [id number] Author: STANLEY LAZO APRN.MANUFACTURING TECH Service: ? Author Type: Nurse Practitioner Type: Progress Notes Filed: 12/11/2024 10:46 Note Text: Pt has severe migraines. She is requesting toradol IV while she has Vyepti infusions. She has not had any NSAIDs in the last 4 days, kidney function is normal. Will give 30 mg IV toradol today.[facility]10-21-2025 History of Present illness Narrative* Corine Gold MD - 12/10/2024 2:30 PM EDT Images from the original note were not included. [address] [place] [id number] Patient: April Nicholson Date of : [...] PAP titration; Future - Ambulatory referral to [facility] Sleep Medicine; Future JUAN DAVID screen positive Needs Sleep study Ordered today Follows psychiatry Is on hormone replacement after total hysterectomy Exercise counseling completed. Follow-up in 3 months CORINE GOLD MD Family Medicine Physician [facility] Medicine / [facility] 12/10/24 This note was completed with voice recognition software. The document was reviewed for errors however some may still be present. Please do not hesitate to contact/Epic msg the author to verify any questions/concerns. documented in this encounterSelect Medical [facility]10-07-2025 NoteHNO ID: [id number] Author: RAIZA SHIELDS APRN.CNP Service: ? Author Type: Nurse Practitioner Type: Progress Notes Filed: 11/26/2024 13:56 Note Text: Patient was incorrectly scheduled; Was told to establish care with MD, I will have scheduling team reach out and assist patient in getting set up with Physician. Appointment cancelled, no charge. Raiza Shields APRN.CNPParkview Health Bryan Hospital09-04-2025 History of Present illness Narrative* SARAHI [...] (three) times a dayfor 7 days. - ibefpppl-xnpcisroa-UH (CORTISPORIN) otic solution; Administer 3 drops into [...] every 12 (twelve) hours for 10 days. ASRAHI Champion 10/24/24 1530 documented in this encounterSelect Medical [facility]08-05-2025 NoteHNO ID: [id number] Author: CURTIS LEPE PA-C Service: ? Author Type: Physician Computer Numerical Control Operator Type: Progress Notes Filed: 12/12/2024 22:32 Note [...] visit. Either the patient or their legal appeals representative has been informed of the risks [...] beyond the current two-m (more content not included)...[facility]07-15-2025 History of Present illness Narrative* Yumiko Worrell LPN - 09/03/2024 10:20 AM EDT [...] or maintaining sleep 01/24/2023 Mild persistent asthma ([facility]) 01/24/2023 Polycystic ovaries 01/24/2023 Psychogenic nonepileptic seizure 01/24/2023 Class 3 severe obesity due to excess calories without serious comorbidity with body mass index (BMI) of 50.0 to 59.9 in adult ([facility]) 03/21/2023 Mild persistent asthma with (acute) exacerbation ([facility]) 10/10/2023 Fatigue 01/01/2024 Encounter for long-term [...] Acute exacerbation of asthma with allergic rhinitis ([facility]) Allergies Asthma ([facility]) At low risk for fall Bipolar affective, mixed ([facility]) Change in blood pressure Cholecystitis 2008 Depressive disorder OMID (generalized anxiety disorder) History of hysterectomy 10/01/2021 Insomnia, persistent Migraines Mild persistent asthma without complication ([facility]) Morbid obesity with BMI of 40.0-44.9, adult [facility] PCOS (polycystic ovarian syndrome) Right otitis [...] persistent Migraines Mild persistent asthma without complication ([facility]) Morbid obesity with BMI of 40.0-44.9, adult ([facility]) PCOS (polycystic ovarian syndrome) Psychogenic nonepileptic seizure Right otitis media Seizures ([facility]) stressed induced Social History Tobacco Use [...] nursing note reviewed. Exam conducted with a shrink pit supervisor present. Vitals: Estimated body mass index is [...] of: Zay Blas DO documented in this encounterParkland Health CenterKoqfpmxodj30-70-7424 Miscellaneous Notes* [facility] En[facility] 9[facility]19 AM EDT With Provider: VINCENT PEÑA [[facility]] Preferred Date Range: 08/27/2024 - 09/07/2024 Preferred Times: Any Reason for Visit: Same Day Comments: Asthma and allergy flareup documented in this encounterSelect Medical [facility]07-07-2025 Telephone encounter Note* Telephone Encounter - [facility] - 08/26/2024 9:19 AM EDT With Provider: VINCENT PEÑA [[facility]] Preferred Date Range: 08/27/2024 - 09/07/2024 Preferred Times: Any Reason for Visit: Same Day Comments: Asthma and allergy flareup [facility] Fxsvnq83-34-2348 Telephone encounter Note* Telephone Encounter - Mendoza Dooley - 08/19/2024 3:31 PM EDT Called patient since she no-showed for infusions today. Patient is going to cancel her infusions because she is headache free at the moment. She does want to know what to do if her headaches come back. Forwarding message to provider [facility]06-30-2025 Miscellaneous Notes* Telephone Encounter - Mendoza Dooley - 08/19/2024 3:31 PM EDT Called patient since she no-showed for infusions today. Patient is going to cancel her infusions because she is headache free at the moment. She does want to know what to do if her headaches come back. Forwarding message to provider documented in this encounterLake County [facility]06-27-2025 Telephone encounter Note * Telephone Encounter - Mendoza Dooley - 08/16/2024 11:44 AM EDT Patient last infusion was on 08/02 and only had one day. Routing to provider to see if she can come in [facility]06-27-2025 Miscellaneous Notes* Telephone Encounter - Mendoza Dooley [...] to patient or clarification documented in this encounterLake County [facility]06-27-2025 Telephone encounter Note * Telephone Encounter - Eloina Gibbs LPN - 08/16/2024 10:54 AM EDT Forwarded to infusion team, provider and Mendoza [facility]06-27-2025 Telephone encounter Note* Telephone Encounter - Eloina Gibbs LPN - 08/16/2024 10:38 AM EDT MYC message sent to patient or clarification [facility]06-17-2025 Telephone encounter Note* Telephone Encounter - Rhiannon Bobo - 08/06/2024 9:58 AM EDT Ambulatory Pharmacy Prior Authorization Note Provider Intervention Required?: No - Pharmacy completed on your behalf. Was the PA documented within the ePA workqueue?: No Rx Plan: Medicaid [facility]CO ([facility]) Drug: Zavzpret 10MG/ACT solution Cover My Meds Chong: [id number] Determination: Approved Prior Authorization/Case #: [id number] Prior Authorization Expiration: 01/31/2025 Time to PA [...] refills. Prescriptions will now be processed through [facility] for determination of next steps. For questions relating to this submission, please contact [facility] at [phone] [facility]06-17-2025 Miscellaneous Notes* Telephone Encounter - Rhiannon Bobo - 08/06/2024 9:58 AM EDT Ambulatory Pharmacy Prior Authorization Note Provider Intervention Required?: No - Pharmacy completed on your behalf. Was the PA documented within the ePA workqueue?: No Rx Plan: Medicaid [place] ([facility]) Drug: Zavzpret 10MG/ACT solution Cover My Meds Chong: [id number] Determination: Approved Prior Authorization/Case #: [id number] Prior Authorization Expiration: 01/31/2025 Time to PA [...] refills. Prescriptions will now be processed through [facility] for determination of next steps. For questions relating to this submission, please contact [facility] at [phone] documented in this encounterLake County Memorial [facility]06-16-2025 Instructions* Patient Instructions* Curtis Lepe PA-C - [...] more information and get the Copay Card: [email or web address].[email or web address]/ Administration: Nose to toes or head level (do not tilt head back). Single spray in one nostril as needed for migraine. Do not prime. One dose per 24 hours. Avoid use with severe hepatic impairment or creatinine clearance less than 30ml/min. No contraindication to take zavzpret with nurtec or another CGRP antagonist. Use copay card. 6 doses in container. documented in this encounterLake County [facility]06-13-2025 History of Present illness Narrative* Curtis Lepe [...] Lymph 1.00 - 4.00 k/uL 0.84 Abs Lake <0.87 k/uL 0.06 Abs Eosin <0.46 k/uL [...] ZOLMitriptan (ZOMIG) 5 mg nasal spray^Use 1 [place] in the nose as needed at onset [...] articulation, and clear,coherent, and relevant. Short and assisted memory, cognition and general fund of knowledge [...] with the treatment plan. Level of service: [facility] level 2 (10-19 min). Time spent 18 min on the day of service, which included preparing to see the patient, jggn-jq-wmmy patient care, completing clinical documentation, obtaining and/or [...] XL, Qudexy) Anti-Depressant and Antipsychotic Amitriptyline (Elavil) [place] (Eskalith, Lithobid) Nortriptyline (Pamelor, Aventyl) Blood Pressure Propranolol (Inderal) MABs Fremanezumab (Ajovy) Galcanezumab (Emgality) Botulinum Toxin Onabotulinum Toxin A (Botox) Supplements Magnesium The following abortive medications have been tried but require high frequency use which can lead toMedication Overuse Headache: Analgesic Ketorolac (Toradol) Anti-Migraine Dihydroergotamine (DHE-45, Migranal) Naratriptan (Amerge) Sumatriptan (Imitrex, Sumavel) Zolmitriptan (Zomig) Recording using [employer] software for draft documentation of the visit was discussed with the patient/authorized appeals representative; all questions welcomed and answered. Patient/authorized appeals representative agreed to proceed Curtis Lepe PA-C Headache Section [facility] August 02, 2024 documented in this encounterLake County [facility]06-13-2025 NoteHNO ID: [id number] Author: CURTIS LEPE PA-C Service: ? Author Type: Physician Computer Numerical Control Operator Type: Progress Notes Filed: 08/05/2024 00:10 Note [...] Lymph 1.00 - 4.00 k/uL 0.84 Abs Lake <0.87 k/uL 0.06 Abs Eosin <0.46 k/uL [...] ZOLMitriptan (ZOMIG) 5 mg nasal sprayUse 1 [place] in the nose as needed at onset [...] in rate, volume a (more content not included)...[facility] 08-02-2024 NoteHNO ID: [id number] Author: ALKA TRENT RN Service: ? Author Type: Registered Nurse Type: Progress Notes Filed: 08/02/2024 12:53 Note Text: Patient in for day 1 of IV infusions. Patient rated headache 10/10. Patient stated severe nausea and mild dizziness. Patient educated on medications to be administered and a motor coach bus driver to transport home was confirmed. Patient verbalized understanding and agreed to proceed with infusions. PRn zofran and benadryl given PRN phenergan given Pts infusions complete. Pt tolerated infusion well. Pt rated headache 6/10. Pt stated mild nausea and moderate dizziness. Pt discharged from treatment room. [facility]06-13-2025 History of Present illness Narrative* Alka Trent RN - 08/02/2024 10:13 AM EDT Patient in for day 1 of IV infusions. Patient rated headache 10/10. Patient stated severe nausea and mild dizziness. Patient educated on medications to be administered and a motor coach bus driver to transport home was confirmed. Patient verbalized understanding and agreed to proceed with infusions. PRn zofran and benadryl given PRN phenergan given Pts infusions complete. Pt tolerated infusion well. Pt rated headache 6/10. Pt stated mild nausea and moderate dizziness. Pt discharged from treatment room. documented in this encounterLake County [facility]06-12-2025 NoteHNO ID: [id number] Author: CURTIS LEPE PA-C Service: ? Author Type: Physician Computer Numerical Control Operator Type: Progress Notes Filed: 08/01/2024 13:20 Note Text: Okay to come in for 1 day of non DHE IV infusions tomorrow.[facility]06-12[facility] History of Present illness Narrative* Curtis [...] day 1 infusions. 1236 Patient discharged to motor coach bus driver headache pain unchanged. documented in this encounterLake County [facility]06-12-2025 NoteHNO ID: [id number] Author: LENNIE PALACIOS RN Service: ? Author [...] day 1 infusions. 1236 Patient discharged to motor coach bus driver headache pain unchanged.[facility]06-04-2025 History of Present illness Narrative* Halima Johns, BIKE ASSEMBLER-MANUFACTURING TECH - 07/24/2024 3:00 PM EDT Images from the original note were not included. Subjective CC: Infected toe/infection both eyes Patient ID: April Nicholson is a 28 y.o. female. CINTHIA Newberry presents with complaints of infection of right great toe. Relates had an infected toenail of her right great toe. States had a pedicure a few days ago, and director of strategic initiatives cleaned out the ingrowntoenail region, and obtained a lot of green pus. States she also has had to do this in the past. Sandra feels the redness has improved, but is still sore to walk on the foot. Also relates both her eyes are light sensitive, puffy and feel bruised. This has been going on since mid-May. [facility] she talked to provider about this, and she tried taking allergy medication, along with allergy eye drops, but obtained no relief from these symptoms. Sandra states she follows up every 3 months with [facility] for migraines. Often times the last month [...] Nose: Nose normal. No rhinorrhea. Mouth/Throat: Lips: [place]. Mouth: Mucous membranes are moist. Pharynx: Oropharynx [...] De León 07/24/24 1707 documented in this encounterSelect Medical [facility] Telephone encounter Note* Telephone Encounter - Mendoza Dooley - 07/05/2024 3:08 PM EDT Images from the original note were not included. Left detailed voicemail message to schedule infusions [facility]05-16-2025 Miscellaneous Notes* Telephone Encounter - Mendoza Dooley - 07/05/2024 3:08 PM EDT Images from the original note were not included. Left detailed voicemail message to schedule infusions documented in this encounterLake County [facility]05-16-2025 Telephone encounter Note * Telephone Encounter - Kaye Lopez - 07/05/2024 12:22 PM EDT I have been unable to reach this patient by phone. A letter is being sent to the last known home address. [facility] 07/05, 07/12 Letter sent- 07/19 [facility] [id number] Miscellaneous Notes* This document contains information received [...] 8:59 AM EDT Approved or Denied?Approved Auth #[id number] Dates of span:06/25/2024 TO 09/24/2024 Method of contact:FAX * Telephone Encounter - Vita Velez - 07/02/2024 2:17 PM EDT Checked portal for PA Auth#[id number] still pending. * Telephone Encounter - Vita Velez - 06/25/2024 3:57 PM EDT Date initiated:06/25/2024 Insurance provider:Lyndsay Name of appeals representative:portal(Urgent) Reference#:[id number] * Telephone Encounter - Viktoria Walton MS, [facility] - 06/25/2024 2:43 PM EDT Please preauthorize this patient for: CPT code for testin ICD-10 code for testing: Encounter Diagnoses Code Name Primary? Z84.89 Family history of genetic disorder Yes Ordering provider: Temo Name of test: Parental SNP Microarray Testing lab: [facility] Specimen requirement: isolated DNA Expected turnaround time: 2-3 weeks Is a Test Requisition Form required for this test: No Type of primary insurance (private or state HMO): State HMO ([facility]) Secondary Medicaid too? (Y/N): No Did the patient apply for [facility]? (Y/N): No If Yes, is it approved (provide approval dates) or still waiting on approval?: no Is a new blood sample required?: No Special lab draw instructions (e.g. Must draw on Monday-Monday): n/a Order placement: Default release COMMENTS: [facility] Plan ID: [id number] * Telephone Encounter - Viktoria Walton MS, [...] Licensed, Certified Genetic Counselor documented in this [facility]05-16-2025 Telephone encounter Note* Telephone Encounter - Vita Velez - 07/05/2024 8:59 AM EDT Approved or Denied?Approved Auth #[id number] Dates of span:06/25/2024 TO 09/24/2024 Method of contact:FAX [facility]05-16-2025 History of Present illness Narrative* Neeraj Shane - 07/05/2024 8:39 AM EDT Received [facility] FAX Forward FAX to Supporting Admin documented in this [facility]05-15-2025 Instructions* Patient Instructions* Curtis Lepe PA-C [...] care. Infusions are done here at [facility] [place] in the [facility]. Our infusion treatment room is where [...] provider. It is best to have a motor coach bus driver, as some medications we use may cause drowsiness. If you do not have a motor coach bus driver, please let your nurse know and [...] and heavy scented lotions. documented in this encounterLake County [facility]05-15-20[facility] History of Present illness Narrative* Curtis eLpe PA-C - 07/04/2024 11:00 AM EDT Images [...] visit. Either the patient or their legal appeals representative has been informed of the risks [...] XL, Qudexy) Anti-Depressant and Antipsychotic Amitriptyline (Elavil) [place] (Eskalith, Lithobid) Nortriptyline (Pamelor, Aventyl) Anti-Migraine Dihydroergotamine [...] ZOLMitriptan (ZOMIG) 5 mg nasal spray^Use 1 [place] in the nose as needed at onset [...] Lymph 1.00 - 4.00 k/uL 0.84 Abs Lake <0.87 k/uL 0.06 Abs Eosin <0.46 k/uL [...] spontaneous and fluent without dysarthria. Short and assisted memory, cognition and general fund of knowledgeare [...] XL, Qudexy) Anti-Depressant and Antipsychotic Amitriptyline (Elavil) [place] (Eskalith, Lithobid) Nortriptyline (Pamelor, Aventyl) Blood Pressure [...] course of IV infusions, and call office ([phone]) with problems or concerns before appointment Level of Service: Virtual Visit 32 minutes Recording using ambient [employer] software for draft documentation of the visit was discussed with the patient/authorized appeals representative; all questions welcomed and answered. Patient/authorized appeals representative agreed to proceed This note was partially generated using [employer] voice recognition system, and there may be some incorrect words, spellings, and punctuation that were not noted in checking the note before saving. Curtis Lepe PA-C Headache Section [facility] July 04, 2024 documented in this encounterLake County [facility]05-15-2025 NoteHNO ID: [id number] Author: CURTIS LEPE PA-C Service: ? Author Type: Physician Computer Numerical Control Operator Type: Progress Notes Filed: 07/04/2024 13:48 Note [...] visit. Either the patient or their legal appeals representative has been informed of the risks [...] their effectiveness. She identifies (more content not included)...[facility] 07-02-2024 Telephone encounter Note* Telephone Encounter - Vita Velez - 07/02/2024 2:17 PM EDT Checked portal for PA Auth#[id number] still pending. [facility] [id number] History of Present illness Narrative* Ammy Carrington, [...] in female 12/19/2022 Mixed bipolar I disorder ([facility]/HCC) 01/24/2023 Chronic migraine without aura without status migrainosus, not intractable ([facility]/HCC) 01/24/2023 Generalized anxiety disorder ([facility]/HCC) 01/24/2023 Persistent disorder of initiating or maintaining sleep 01/24/2023 Mild persistent asthma 01/24/2023 Polycystic ovaries 01/24/2023 Psychogenic nonepileptic seizure 01/24/2023 Class 3 severe obesity due to excess calories without serious comorbidity with body mass index (BMI) of 50.0 to 59.9 in adult 03/21/2023 Mild persistent asthma with (acute) exacerbation ([facility]) 10/10/2023 Fatigue 01/01/2024 Encounter for long-term [...] Acute exacerbation of asthma with allergic rhinitis ([facility]) Allergies Asthma At low risk for fall Bipolar affective, mixed (HCC) ([facility]) Change in blood pressure Cholecystitis 2008 Depressive disorder ([facility]) OMID (generalized anxiety disorder) ([facility]) History of hysterectomy 10/01/2021 Insomnia, persistent Migraines ([facility]) Mild persistent asthma without complication ([facility]) Morbid obesity with BMI of 40.0-44.9, adult ([facility]) PCOS (polycystic ovarian syndrome) Right otitis media Seizures ([facility]) HISTORY PAST MEDICAL HISTORY SOCIAL HISTORY Past Medical History: Diagnosis Date Acute exacerbation of asthma with allergic rhinitis ([facility]) Allergies Asthma At low risk for fall Bipolar affective, mixed (HCC) ([facility]) Change in blood pressure high and low Cholecystitis 2008 Chronic migraine without aura without status migrainosus, not intractable ([facility]) Depressive disorder ([facility]) OMID (generalized anxiety disorder) ([facility]) History of hysterectomy 10/01/2021 Insomnia, persistent Migraines ([facility]) Mild persistent asthma without complication ([facility]) Morbid obesity with BMI of 40.0-44.9, adult ([facility]) PCOS (polycystic ovarian syndrome) Psychogenic nonepileptic seizure Right otitis media Seizures ([facility]) stressed induced Social History Tobacco Use [...] of: Zay Blas DO documented in this encounterParkland Health [id number] Telephone encounter Note* Telephone Encounter - Vita Velez - 06/25/2024 3:57 PM EDT Date initiated:06/25/2024 Insurance provider:Lyndsay Name of appeals representative:portal(Urgent) Reference#:[id number] [facility] [id number] Telephone encounter Note* Telephone Encounter - Viktoria Walton MS, [facility] - 06/25/2024 2:43 PM EDT Please preauthorize this patient for: CPT code for testin ICD-10 code for testing: Encounter Diagnoses Code Name Primary? Z84.89 Family history of genetic disorder Yes Ordering provider: Temo Name of test: Parental SNP Microarray Testing lab: [facility] Specimen requirement: isolated DNA Expected turnaround time: 2-3 weeks Is a Test Requisition Form required for this test: No Type of primary insurance (private or state HMO): State HMO ([email or web address]) Secondary Medicaid too? (Y/N): No Did the patient apply for [facility]? (Y/N): No If Yes, is it approved (provide approval dates) or still waiting on approval?: no Is a new blood sample required?: No Special lab draw instructions (e.g. Must draw on Monday-Monday): n/a Order placement: Default release COMMENTS: [facility] Plan ID: [id number] [facility] [id number] Telephone encounter Note* Telephone Encounter - Viktoria [...] Walton MS, [place] Licensed, Certified Genetic Counselor [facility] [id number] Miscellaneous Notes* Telephone Encounter - Nirmala Lopez - 06/07/2024 1:17 PM EDT Contract: 148 No need to call documented in this encounterSelect Medical [facility]04-18-2025 Telephone encounter Note* Telephone Encounter - Nirmala Lopez - 06/07/2024 1:17 PM EDT Contract: 148 No need to call [facility]04-17-2025 History of Present illness Narrative* Corine Gold MD - 06/06/2024 4:30 PM EDT Images from the original note were not included. [address] [place] [phone] Patient: April Nicholson Date of : [...] Real-time Synchronous Audiovisual Provider Location: [facility] [address] [place] [phone] Patient Location: Patient's home Video Visit Consent [...] that there are some limitations compared to jylx-hq-wypm evaluations. The patient consented to the presence of additional virtual and/or in-person participants. We elected to proceed. CORINE GOLD MD Family Medicine Physician [facility] 06/06/24 This note was completed with voice recognition software. The document was reviewed for errors however some may still be present. Please do not hesitate to contact/Epic [facility] the author to verify any questions/concerns. documented in this encounterProctor HospitalExeo Entertainment [id number] Telephone encounter Note* Telephone Encounter - Amy [...] spray 12 each 5 Sig: Use 1 [place] in the nose as needed at onset of migraine headache. If symptoms persist or return, may repeat dose in other nostril after 2 hours. Maximum of 2 sprays per 24 hours Last visit 05/03/2024 with Sherif HERNANDEZ Next scheduled Visit date not found [facility]04-14-2025 Miscellaneous Notes* Telephone Encounter - Amy Shrestha [...] spray 12 each 5 Sig: Use 1 [place] in the nose as needed at onset of migraine headache. If symptoms persist or return, may repeat dose in other nostril after 2 hours. Maximum of 2 sprays per 24 hours Last visit 05/03/2024 with Sherif HERNANDEZ Next scheduled Visit date not found documented in this encounterLake County [facility]04-01-2025 History of Present illness Narrative* Rajinder Cotton DO - 05/21/2024 9:30 AM EDT Images from the original note were not included. [facility] [address] [place] [address] [place] [address] Patient: April Nicholson Date of : 1995 Encounter Date: 05/21/2024 Subjective: Chief Complaint Chief Complaint Patient presents with sinus infection History of Present Illness April Nicholson is a 28 y.o. female, established patient, that presents to the office for acute sinus congestion. History provided by patient. Sinus Problem This is a new problem. Episode onset: 4 days ago. Maximum temperature: [place] feverish. Associated symptoms include chills (With associated [...] and frontal sinus tenderness present. Mouth/Throat: Lips: [place]. No lesions. Mouth: Mucous membranes are moist. [...] 03/25/2024 Prolonged emergence from general anesthesia Seizure ([facility]) Last one 03-11-2024 Past Surgical History: Procedure Laterality Date APPENDECTOMY SECTION [facility]LE[facility] LYSIS OF ADHESIONS N/A 03/28/2024 Performed by Mundo Martinez MD at [facility] LYSIS OF ADHESIONS N/A 03/28/2024 Performed by Jesse Sultana MD at [facility] SALPINGO OOPHORECTOMY/FROZEN SECTION Bilateral 03/28/2024 Performed [...] Physical Activity: Insufficiently Active (01/23/2024) Received from [facility] Exercise Vital Sign Days of Exercise per Week: 7 days Minutes of Exercise per Session: 10 min Stress: Stress Concern Present (01/23/2024) Received from [facility] [place] of Occupational Health - Occupational Stress Questionnaire Feeling of Stress : Rather much Social Connections: Socially Integrated (01/23/2024) Received from [facility] Social Connection and Isolation Panel [NHANES] Frequency of Communication with Friends and Family: More than three times a week Frequency of Social Gatherings with Friends and Family: Twice a week Attends Adventism Services: More than 4 times per year [...] mg total) by mouth in the morning. ykygbvhpfgh-puekxrpvf-zanudqez (TRELEGY ELLIPTA) 200-62.5-25 mcg blister with device [...] DO 05/21/24 10:30 AM documented in this encounterRegency Hospital CompanyGroup IV Semicon[employer] [facility]ipp HospitalSmugps04-20-1439 Instructions* Patient Instructions* Rajinder Cotton DO - [...] yeast infection from antibiotics documented in this encounterSelect Medical [facility]03-26-2025 History of Present illness Narrative* MARY Cintron - 05/15/2024 8:30 AM EDT Subjective: April Nicholson is a 28 y.o. female who is s/p a laparoscopic BSO, FANNY on 03/28/24. Pathology: benign She unfortunately was admitted to [facility] on 04/08/24 after experiencing high fevers despite [...] 03/28/2024 Performed by Mundo Martinez MD at [facility] LYSIS OF ADHESIONS N/A 03/28/2024 Performed by Jesse Sultana MD at [facility] [place] OOPHORECTOMY/FROZEN SECTION Bilateral 03/28/2024 Performed by Mundo Martinez MD at [facility] DILATION AND CURETTAGE OF UTERUS PARTIAL [...] Physical Activity: Insufficiently Active (01/23/2024) Received from [facility] Exercise Vital Sign Days of Exercise per Week: 7 days Minutes of Exercise per Session: 10 min Stress: Stress Concern Present (01/23/2024) Received from [facility] [place] of Occupational Health - Occupational Stress Questionnaire Feeling of Stress : Rather much Social Connections: Socially Integrated (01/23/2024) Received from [facility] Social Connection and Isolation Panel [NHANES] Frequency of Communication with Friends and Family: More than three times a week Frequency of Social Gatherings with Friends and Family: Twice a week Attends Adventism Services: More than 4 times per year [...] anomaly not found LOC (loss of consciousness) ([facility]) Migraine with aura and without status [...] be continued by her PCP or primary managing broker. Estradiol 1 mg tablet once daily PO. *The patient has a documented plan of care to address pain. All questions were answered to the patient's satisfaction. She is agreeable to this plan of care. *This note was completed using a voice ship yard electrical person system. Every effort was made to ensure accuracy. However, inadvertent computerized ship yard electrical person errors may be present. .Total time spent was 15 minutes: Preparing to see the patient (e.g., review of tests) Performing a medically appropriate examination and/or evaluation Counseling and educating the patient/family/caregiver Ordering medications, tests, or procedures Documenting clinical information in the electronic or other health record Care coordination (not separately reported) Svetlana Ye PA-C, RD, IF MARY Cintron 05/15/24 0913 documented in this encounterProctor HospitalExeo Entertainment [id number] Telephone encounter Note* Telephone Encounter - Angely Cotton RN - 05/13/2024 9:19 AM EDT Ambulatory Pharmacy Prior Authorization Note Provider Intervention Required?: No - Pharmacy completed on your behalf. Was the PA documented within the [facility] workqueue?: No Rx Plan[facility] Drug: Ubrelvy 100MG tablets Cover My Meds Chong: [id number] Determination: Approved Prior Authorization/Case #: [id number] Prior Authorization Expiration: 05/07/24 Time to PA [...] refills. Prescriptions will now be processed through [facility] for determination of next steps. For questions relating to this submission, please contact [facility] at [phone] [facility] Work Phone: [phone] 734-553003-24-2025 Miscellaneous Notes* Telephone Encounter - Angely Cotton RN - 05/13/2024 9:19 AM EDT Ambulatory Pharmacy Prior Authorization Note Provider Intervention Required?: No - Pharmacy completed on your behalf. Was the PA documented within the e[facility] workqueue?: No Rx Plan: Medicaid MCO ([place]) Drug: Ubrelvy 100MG tablets Cover My Meds Chong: [id number] Determination: Approved Prior Authorization/Case #: [id number] Prior Authorization Expiration: 05/07/24 Time to PA [...] refills. Prescriptions will now be processed through [facility] for determination of next steps. For questions relating to this submission, please contact [facility] at [phone] * Telephone Encounter - Angely Cotton RN - 05/08/2024 3:20 PM EDT [facility] received prescription(s) for Ubrelvy 100MG tablets . Benefits investigation was conducted, indicating that a prior authorization is required. All pertinent clinical information was submitted to insurance. Epic- Referral # [id number] Angely Cotton RN [facility] P: , F: * Telephone Encounter - Angely Cotton RN - 05/07/2024 10:[address] Lepe , Pt's ubrelvy needs a PA . I am unable to complete a PA since your office note is unfinished. Pleaselet me know when you have completed it and I will put in the PA tio. Thanks! Angely Cotton RN [facility] P: , F: [facility] Telephone encounter Note * Telephone Encounter - Angely Cotton RN - 05/08/2024 3:20 PM EDT [facility] received prescription(s) for Ubrelvy 100MG tablets . Benefits investigation was conducted, indicating that a prior authorization is required. All pertinent clinical information was submitted to insurance. Epic- Referral # [id number] Angely Cotton RN [facility] P: , F: [facility]03-18-2025 Telephone encounter Note* Telephone Encounter - Angely Cotton RN - 05/07/2024 10:[address] Lepe , Pt's ubrelvy needs a PA . I am unable to complete a PA since your office note is unfinished. Pleaselet me know when you have completed it and I will put in the PA tio. Thanks! Angely Cotton RN [facility] P: , F: [facility]03-14-2025 Instructions* Patient Instructions* Curtis Lepe PA-C - [...] and dry mouth. PATIENT ASSISTANCE PROGRAM (PAP): [email or web address] - Start taking Ubrelvy as prescribed [...] your clinician as needed. documented in this encounterLake [facility] History of Present illness Narrative* Curtis Lepe PA-C - 05/03/2024 9:30 AM EDT Images [...] visit. Either the patient or their legal appeals representative has been informed of the risks [...] XL, Qudexy) Anti-Depressant and Antipsychotic Amitriptyline (Elavil) [place] (Eskalith, Lithobid) Nortriptyline (Pamelor, Aventyl) Anti-Migraine Dihydroergotamine [...] ZOLMitriptan (ZOMIG) 5 mg nasal spray^Use 1 [place] in the nose as needed at onset [...] Lymph 1.00 - 4.00 k/uL 0.84 Abs Lake <0.87 k/uL 0.06 Abs Eosin <0.46 k/uL [...] spontaneous and fluent without dysarthria. 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 memory, cognition and general fund of knowledgeare [...] XL, Qudexy) Anti-Depressant and Antipsychotic Amitriptyline (Elavil) [place] (Eskalith, Lithobid) Nortriptyline (Pamelor, Aventyl) Blood Pressure [...] XL, Qudexy) Anti-Depressant and Antipsychotic Amitriptyline (Elavil) [place] (Eskalith, Lithobid) Nortriptyline (Pamelor, Aventyl) Blood Pressure [...] time Follow-up: 2 months and call office ([phone]) with problems or concerns before appointment Level of Service: Virtual Visit 35 minutes The patient consented to the use of [employer] software for draft documentation of the visit consistent with [facility] s Notice of Privacy Practices. This note was partially generated using [employer] voice recognition system, and there may be some incorrect words, spellings, and punctuation that were not noted in checking the note before saving. Curtis Lepe PA-C Headache Section [facility] May 03, 2024 documented in this encounterLake [facility]03-14-2025 NoteHNO ID: [id number] Author: CURTIS LEPE PA-C Service: ? Author Type: Physician Computer Numerical Control Operator Type: Progress Notes Filed: 05/08/2024 00:02 Note [...] visit. Either the patient or their legal appeals representative has been informed of the risks [...] Migraine headache severity: 10/ (more content not included)...[facility]03-13-2025 NoteHNO ID: [id number] Author: CLAUDIA MAYNARD RN Service: ? Author [...] and agreeable to plan. 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 documented in this encounterLake [facility]03-11-2025 Miscellaneous Notes* Telephone Encounter - Caterina Smith CMA - 04/30/2024 8:41 AM EDT Attempted to contact patient regarding refill sent in. No answer, left voicemail. documented in this encounterSelect [facility] Telephone encounter Note* Telephone Encounter - Caterina Smith CMA - 04/30/2024 8:41 AM EDT Attempted to contact patient regarding refill sent in. No answer, left voicemail. [facility]03-10-2025 History of Present illness Narrative* MARY Cintron - 04/29/2024 2:20 PM EDT Patient called asking for refill of oxycodone for post op pain. Upon reviewing her OARRS it would appear she had Tylenol III refilled last week at [facility] [place], [place]. Discussed this with patient who states [...] post op pain. She expressed understanding. [facility] completing phone call with patient. Pharmacy staff confirmed prescription for Tylenol III was picked up on 3/3/25 with a receipt available to view. MARY Cintron 04/29/24 1440 documented in this encounterSelect Medical [facility]03-10-[facility] History of Present illness Narrative* SARAHI Champion - 04/29/2024 9:18 AM EDT The OARRS/MAPPS database was reviewed today and found to be appropriate. No indication of medication diversion, or non compliance. SARAHI Champion 04/29/24 0918 documented in this encounterSelect Medical [facility] History of Present illness Narrative* Corine Gold MD - 04/25/2024 1:00 PM EST Images from the original note were not included. [address] [place] [address] [facility] [id number] Patient: April Nicholson Date of : 1995 Encounter Date: 04/25/2024 SUBJECTIVE: HISTORY OF PRESENT ILLNESS: Chief Complaint: Chief Complaint Patient presents with [facility] Care Patient ID: April is a 28 [...] Has 4 special needs children Does require multimedia production assistant attention Previously had viapti infusion for migraine headaches Is on valium and lamictal for non epileptiform seizure. Has episodes of zoning out. No history of Sleep Study Support system is fragmented -parents -Judaism -2 fathers of childrens - not interested in being involved. PAST MEDICAL HISTORY: Past Medical History: Diagnosis Date Anxiety Asthma BV (bacterial vaginosis) Depression Migraine 15 days out of the month-receives an infusion every 3 months MRSA (methicillin resistant Staphylococcus aureus) In a buttocks wound in 8th grade Ovarian cyst, bilateral 03/25/2024 Prolonged emergence from general anesthesia Seizure ([facility]) Last one 03-11-2024 PAST SURGICAL HISTORY: Past Surgical History: Procedure Laterality Date APPENDECTOMY SECTION CHOLECYSTECTOMY [facility] DV5 LYSIS OF ADHESIONS N/A 03/28/2024 Performed by Mundo Martinez MD at [facility] DV5 LYSIS OF ADHESIONS N/A 03/28/2024 Performed by Jesse Sultana MD at [facility] [place] OOPHORECTOMY/FROZEN SECTION Bilateral 03/28/2024 Performed by Mundo Martinez MD at [facility] DILATION AND CURETTAGE OF UTERUS PARTIAL [...] Physical Activity: Insufficiently Active (01/23/2024) Received from [facility] Exercise Vital Sign Days of Exercise per Week: 7 days Minutes of Exercise per Session: 10 min Stress: Stress Concern Present (01/23/2024) Received from [facility] [place] of Occupational Health - Occupational Stress Questionnaire Feeling of Stress : Rather much Social Connections: Socially Integrated (01/23/2024) Received from [facility] Social Connection and Isolation Panel [NHANES] Frequency of Communication with Friends and Family: More than three times a week Frequency of Social Gatherings with Friends and Family: Twice a week Attends Adventism Services: More than 4 times per year [...] TWO PUFFS BY MOUTH EVERY 4 HOURS [id number] g 1 cetirizine (ZyrTEC) 10 mg tablet Take 1 tablet (10 mg total) by mouth in the morning. 30 tablet 0 diazePAM (VALIUM) 10 mg tablet Take 0.5 tablets (5 mg total) by mouth in the morning and at bedtime. gkkaakfbblh-bbfpetcmc-jkidtlbw (TRELEGY ELLIPTA) 200-62.5-25 mcg blister with device [...] unremarkable. CORINE GOLD MD Family Medicine Physician [facility] / [facility] 04/25/24 This note was completed with voice recognition software. The document was reviewed for errors however some may still be present. Please do not hesitate to contact/Epic ms the author to verify any questions/concerns. documented in this encounterSelect Medical [facility]03-[facility]25 History of Present illness Narrative* Alice Wright RN - 04/24/2024 3:13 PM EST Images from the original note were not included. [employer] pharmacy notified. Spoke with Leonie. MARY Cintron RN Up to twice daily, thanks! Previous Messages ----- Message ----- From: Alice Wright RN Sent: 04/24/2024 2:17 PM EST To: MARY Cintron [facility] pharmacy called for clarification on the lidocaine cream. How many times a day can she the cream? Please advise. Thank you, Rubi documented in this [facility]03-05-2025 History of Present illness Narrative* MARY Cintron - 04/24/2024 9:30 AM EST Subjective: April Nicholson is a 28 y.o. female who is s/p a laparoscopic BSO, FANNY on 03/28/24. Pathology: benign She unfortunately was admitted to [facility] on 04/08/24 after experiencing high fevers despite being on antibiotics. The patient stated that she completed a 7-day course of clindamycin post-operatively. Oneday prior to presentation to the ED, the patient had been evaluated at [facility] and was given 1 dose [...] 03/28/2024 Performed by Mundo Martinez MD at [facility] DV5 LYSIS OF ADHESIONS N/A 03/28/2024 Performed by Jesse Sultana MD at [facility] [place] OOPHORECTOMY/FROZEN SECTION Bilateral 03/28/2024 Performed by Mundo Martinez MD at [facility] DILATION AND CURETTAGE OF UTERUS PARTIAL [...] Physical Activity: Insufficiently Active (01/23/2024) Received from [facility] Exercise Vital Sign Days of Exercise per Week: 7 days Minutes of Exercise per Session: 10 min Stress: Stress Concern Present (01/23/2024) Received from [facility] [place] of Occupational Health - Occupational Stress Questionnaire Feeling of Stress : Rather much Social Connections: Socially Integrated (01/23/2024) Received from [facility] Social Connection and Isolation Panel [NHANES] Frequency of Communication with Friends and Family: More than three times a week Frequency of Social Gatherings with Friends and Family: Twice a week Attends Adventism Services: More than 4 times per year [...] anomaly not found LOC (loss of consciousness) ([facility]) Migraine with aura and without status migrainosus, not intractable Bilateral occipital neuralgia Asthma without status asthmaticus Anxiety Depressive disorder Seizure-like activity ([facility]) Simple partial seizure disorder ([facility]) Psychogenic nonepileptic seizure Acute cough S/P [...] *This note was completed using a voice ship yard electrical person system. Every effort was made to ensure accuracy. However, inadvertent computerized ship yard electrical person errors may be present. .Total time spent was 35 minutes: Preparing to see the patient (e.g., review of tests) Performing a medically appropriate examination and/or evaluation Counseling and educating the patient/family/caregiver Ordering medications, tests, or procedures Documenting clinical information in the electronic or other health record Care coordination (not separately reported) Svetlana Ye PA-C, RD, IF MARY Cintron 04/24/24 1228 documented in this encounterSelect Medical [facility]03-03-2025 Telephone encounter Note* Telephone Encounter - Mendoza Dooley - 04/22/2024 4:23 PM EST Calls were returned to patient. Patient is scheduled for vyepti [facility]03-03-2025 Miscellaneous Notes* Telephone Encounter - Mendoza Dooley - 04/22/2024 4:23 PM EST Calls were returned to patient. Patient is scheduled for vyepti documented in this encounterLake [facility] History of Present illness Narrative* Yumiko Worrell [...] in female 12/19/2022 Mixed bipolar I disorder ([facility]) 01/24/2023 Chronic migraine without aura without status migrainosus, not intractable ([facility]) 01/24/2023 Generalized anxiety disorder ([facility]) 01/24/2023 Persistent disorder of initiating or maintaining sleep 01/24/2023 Mild persistent asthma ([facility]) 01/24/2023 Polycystic ovaries 01/24/2023 Psychogenic nonepileptic seizure ([facility]) 01/24/2023 Class 3 severe obesity due to excess calories without serious comorbidity with body mass index (BMI) of 50.0 to 59.9 in adult ([facility]) 03/21/2023 Mild persistent asthma with (acute) exacerbation ([facility]) 10/10/2023 Fatigue 01/01/2024 Encounter for long-term [...] Acute exacerbation of asthma with allergic rhinitis ([facility]) Allergies Asthma ([facility]) At low risk for fall Bipolar affective, mixed (HCC) ([facility]) Change in blood pressure Cholecystitis 2009 Depressive disorder ([facility]) OMID (generalized anxiety disorder) ([facility]) History of hysterectomy 10/01/2021 Insomnia, persistent Migraines ([facility]) Mild persistent asthma without complication ([facility]) Morbid obesity with BMI of 40.0-44.9, adult ([facility]) PCOS (polycystic ovarian syndrome) Right otitis media Seizures ([facility]) HISTORY PAST MEDICAL HISTORY SOCIAL HISTORY Past Medical History: Diagnosis Date Acute exacerbation of asthma with allergic rhinitis ([facility]) Allergies Asthma ([facility]) At low risk for fall Bipolar affective, mixed (HCC) ([facility]) Change in blood pressure high and low Cholecystitis 2008 Chronic migraine without aura without status migrainosus, not intractable ([facility]) Depressive disorder ([facility]) OMID (generalized anxiety disorder) ([facility]) History of hysterectomy 10/01/2021 Insomnia, persistent Migraines ([facility]) Mild persistent asthma without complication ([facility]) Morbid obesity with BMI of 40.0-44.9, adult ([facility]) PCOS (polycystic ovarian syndrome) Psychogenic nonepileptic seizure ([facility]) Right otitis media Seizures ([facility]) stressed induced Social History Tobacco Use [...] nursing note reviewed. Exam conducted with a shrink pit supervisor present. Vitals: Estimated body mass index is [...] of: Zay Blas DO documented in this encounterParkland Health [id number] History of Present illness Narrative* MARY Cintron - 04/15/2024 9:00 AM EST Subjective: April Nicholson is a 28 y.o. female who is s/p a laparoscopic BSO, FANNY on 03/28/24. Pathology: benign She unfortunately was admitted to [facility] on 04/08/24 after experiencing high fevers despite being on antibiotics. The patient stated that she completed a 7-day course of clindamycin post-operatively. Oneday prior to presentation to the ED, the patient had been evaluated at [facility] and was given 1 dose [...] History: Procedure Laterality Date APPENDECTOMY SECTION CHOLECYSTECTOMY [place] [address] LYSIS OF ADHESIONS N/A 03/28/2024 Performed by Mundo Martinez MD at [place] [address] LYSIS OF ADHESIONS N/A 03/28/2024 Performed by Jesse Sultana MD at [place] [address] [place] OOPHORECTOMY/FROZEN SECTION Bilateral 03/28/2024 Performed by Mundo Martinez MD at [facility] DILATION AND CURETTAGE OF UTERUS PARTIAL HYSTERECTOMY 10/01/2021 TUBAL LIGATION Past Medical History: Diagnosis Date Anxiety Asthma BV (bacterial vaginosis) Depression Migraine 15 days out of the month-receives an infusion every 3 months MRSA (methicillin resistant Staphylococcus aureus) In a buttocks wound in 8th grade Ovarian cyst, bilateral 03/25/2024 Prolonged emergence from general anesthesia Seizure ([facility]) Last one 03-11-2024 Family History Problem Relation [...] Physical Activity: Insufficiently Active (01/23/2024) Received from [facility] Exercise Vital Sign Days of Exercise per Week: 7 days Minutes of Exercise per Session: 10 min Stress: Stress Concern Present (01/23/2024) Received from [facility] [place] of Occupational Health - Occupational Stress Questionnaire Feeling of Stress : Rather much Social Connections: Socially Integrated (01/23/2024) Received from [facility] Social Connection and Isolation Panel [NHANES] Frequency of Communication with Friends and Family: More than three times a week Frequency of Social Gatherings with Friends and Family: Twice a week Attends Adventism Services: More than 4 times per year [...] anomaly not found LOC (loss of consciousness) ([facility]) Migraine with aura and without status migrainosus, not intractable Bilateral occipital neuralgia Asthma without status asthmaticus Anxiety Depressive disorder Seizure-like activity ([facility]) Simple partial seizure disorder ([facility]) Psychogenic nonepileptic seizure Acute [...] *This note was completed using a voice ship yard electrical person system. Every effort was made to ensure accuracy. However, inadvertent computerized ship yard electrical person errors may be present. .Total time spent was 35 minutes: Preparing to see the patient (e.g., review of tests) Performing a medically appropriate examination and/or evaluation Counseling and educating the patient/family/caregiver Ordering medications, tests, or procedures Documenting clinical information in the electronic or other health record Care coordination (not separately reported) Svetlana Ye PA-C, RD, IF MARY Cintron 04/16/24 1237 documented in this encounterRegency Hospital CompanyCuriyo02-19-2025 Progress note* Discharge Planning Note - Desiree Theodore RN - 04/10/2024 3:04 PM EST DISCHARGE PLANNING NOTE Patient's RN reported that patient would like a rolling walker at discharge, Referral placed on [employer] with script and face to face documentation attached with a requestof delivery to patient's room today for discharge. Software Engineering Project Manager will follow for discharge transition - DESIREE THEODORE RN 04/10/24 3:05 PM [facility]The OneDerBag [id number] Miscellaneous Notes* Discharge Planning Note - Desiree Theodore RN - 04/10/2024 3:04 PM EST DISCHARGE PLANNING NOTE Patient's RN reported that patient would like a rolling walker at discharge, Referral placed on [employer] with script and face to face documentation attached with a requestof delivery to patient's room today for discharge. Software Engineering Project Manager will follow for discharge transition - DESIREE [...] rounds, barriers to discharge are: No barriers. [place] [facility] for [facility]. Patient states that she is not comfortable doing her own wound care. Has family that assist 4-5 times per week with wound care. Discharge Plan: Plan is home with HCC if able to find company to agree to care. Will arrange outpatient wound care if unable to find accepting HCC. Software Engineering Project Manager will continue to follow for any discharge needs. - Nicky Buchanan RN 04/10/24 10:38 AM * Plan of Care - Effie Keene RN - 04/10/2024 8:07 AM EST Problem: Pain Goal: Patient goal is pain score less than 4, able to rest, and participant in treatment plan as appropriate Description: INTERVENTIONS: 1. Encourage patient or legal appeals representative to report early pain and ask [...] per policy 9. Teach patient or legal appeals representative interventions for comforting Outcome: Progressing Note: [...] at the bedside 7. Instruct patient/ patient appeals representative about use of safety devices 8. Include patient/ patient appeals representative in decisions related to safety Outcome: [...] hygiene technique. 7. Identify and instruct patient/patient appeals representative in use of appropriate isolation precautionsfor identified infection/symptoms. 8. Provide and discuss with patient/patient appeals representative on educational MDRO sheet. 9. Encourage and monitor nutritional status daily and consult chute puller if indicated. 10. Implement neutropenic guidelines as needed. Outcome: Progressing Note: Evaluation of progress towards goal: Patient afebrile, vital signs stable at this time. Continuing to monitor. Problem: Knowledge Deficit Goal: Patient/patient appeals representative demonstrates understanding of disease process, treatment [...] Score of =/> 25 or indicated by [facility] Assessment Goal: Patient should be free from fall Description: Interventions: 1. [place] to environment 2. Hourly rounds addressing the [...] non-skid footwear 11. Teach patient and patient appeals representative to maintain environment for safety and [...] (cane, walker) within reach 19. Request patient appeals representative bring adaptive equipment/mobility aids from home or obtain and provide as needed 20. Consult pharmacy regarding effects of med's affecting mobility, cognition, and alternatives 21. Obtain physician order for PT if risk factors associated with mobility are present 22. Obtain physician order for OT as appropriate 23. Utilize diversional activities 24. Educate patient and patient appeals representative how to maintain a safe environment during visitationtimes (notify nurse prior to leaving bedside) 25. Consider appropriateness of medical or non-medical instrument technician 26. Set up voiding schedule as appropriate (every 2 hours) Outcome: Progressing Note: Evaluation of progress towards goal: Patient remains free from falls at this time. Interventions in place to help prevent falls. Continuing to monitor. Problem: Low Risk Fall Score Description: Nath Fall Score of 0 - 24 [facility] Goal: Patient should be free from fall Description: Interventions: 1. [place] to environment 2. Hourly rounds addressing the [...] non-skid footwear 11. Teach patient and patient appeals representative to maintain environment for safety and [...] Description: INTERVENTIONS: 1. Encourage patient or legal appeals representative to report early pain and ask [...] per policy 9. Teach patient or legal appeals representative interventions for comforting Outcome: Progressing Note: [...] at the bedside 7. Instruct patient/ patient appeals representative about use of safety devices 8. Include patient/ patient appeals representative in decisions related to safety Outcome: [...] hygiene technique. 7. Identify and instruct patient/patient appeals representative in use of appropriate isolation precautionsfor identified infection/symptoms. 8. Provide and discuss with patient/patient appeals representative on educational MDRO sheet. 9. Encourage and monitor nutritional status daily and consult chute puller if indicated. 10. Implement neutropenic guidelines as needed. Outcome: Progressing Note: Evaluation of progress towards goal: Standard precautions and hand hygiene used to prevent infection Problem: Knowledge Deficit Goal: Patient/patient appeals representative demonstrates understanding of disease process, treatment [...] Collaborate with ancillary departments 14. Include patient/patient appeals representative in decisions related to anxiety Outcome: [...] Score of =/> 25 or indicated by [facility] Assessment Goal: Patient should be free from fall Description: Interventions: 1. [place] to environment 2. Hourly rounds addressing the [...] non-skid footwear 11. Teach patient and patient appeals representative to maintain environment for safety and [...] (cane, walker) within reach 19. Request patient appeals representative bring adaptive equipment/mobility aids from home or obtain and provide as needed 20. Consult pharmacy regarding effects of med's affecting mobility, cognition, and alternatives 21. Obtain physician order for PT if risk factors associated with mobility are present 22. Obtain physician order for OT as appropriate 23. Utilize diversional activities 24. Educate patient and patient appeals representative how to maintain a safe environment during visitationtimes (notify nurse prior to leaving bedside) 25. Consider appropriateness of medical or non-medical instrument technician 26. Set up voiding schedule as appropriate [...] 6. Collaborate with pastoral/spiritual care, social work msw, mental health counselor as needed. 7. Instruct patient on diversional activities such as physical activity, distraction, and deep breathing exercises to assist with coping 8. Involve patient's appeals representative in care Outcome: Completed Note: Evaluation of progress towards goal: completed * Discharge Planning Note - Nicky Buchanan RN - 04/09/2024 2:58 PM EST DISCHARGE PLANNING NOTE Update: [facility] unable to accept. [facility] [place] [facility] per patient choice sent. Waiting on reply. - Nicky Buchanan RN 04/09/24 2:59 PM * Discharge Planning Note - Nicky Buchanan RN - 04/09/2024 10:45 AM EST DISCHARGE PLANNING NOTE Multi Operation Machine Operator met with patient, introduced self, and explained role. Patient educated on safe discharge plan. Pt admitted 04/08/2024 with Abdominal wall cellulitis [L03.311] Sepsis ([facility]) [A41.9] Postoperative surgical complication [...] 03/25/2024 Prolonged emergence from general anesthesia Seizure ([facility]) Last one 03-11-2024 Prior to admission patient was living with family and self care. Medical equipment patient used prior to admission includes: None. Patient denies need for transportation/ food/ prescription medication assistance resources. Patient lives with minor children and boyfriend. Has support from mother. Referral sent to [facility] per patient choice- her daughter has used them before. PCP: CORINE GOLD MD Pharmacy:[facility] in [place] PCP and pharmacy confirmed with patient. CN offered to assist with follow up appointment arrangements; patient declines - states will self-schedule follow up appointments. CORINE GOLD MD added to Follow Up Providers for Summary of Care communication. Per patient self-report: Drug use: no Smoking: no ETOH Use: no Current discharge plan is: Home with [facility] for [facility] care Services Requested: [facility] Will [...] Description: INTERVENTIONS: 1. Encourage patient or legal appeals representative to report early pain and ask [...] per policy 9. Teach patient or legal appeals representative interventions for comforting Outcome: Progressing Note: [...] at the bedside 7. Instruct patient/ patient appeals representative about use of safety devices 8. Include patient/ patient appeals representative in decisions related to safety Outcome: [...] hygiene technique. 7. Identify and instruct patient/patient appeals representative in use of appropriate isolation precautionsfor identified infection/symptoms. 8. Provide and discuss with patient/patient appeals representative on educational MDRO sheet. 9. Encourage and monitor nutritional status daily and consult chute puller if indicated. 10. Implement neutropenic guidelines as needed. Outcome: Progressing Note: Evaluation of progress towards goal: on iv atb. Cont to trend labs.fevers Problem: Knowledge Deficit Goal: Patient/patient appeals representative demonstrates understanding of disease process, treatment [...] Collaborate with ancillary departments 14. Include patient/patient appeals representative in decisions related to anxiety Outcome: [...] 6. Collaborate with pastoral/spiritual care, social work msw, mental health counselor as needed. 7. Instruct patient on diversional activities such as physical activity, distraction, and deep breathing exercises to assist with coping 8. Involve patient's appeals representative in care Outcome: Progressing Note: Evaluation of progress towards goal: able to voice concerns. Problem: Moderate - High Risk Fall Score Description: Nath Fall Score of =/> 25 or indicated by [facility] Assessment Goal: Patient should be free from fall Description: Interventions: 1. [place] to environment 2. Hourly rounds addressing the [...] non-skid footwear 11. Teach patient and patient appeals representative to maintain environment for safety and [...] (cane, walker) within reach 19. Request patient appeals representative bring adaptive equipment/mobility aids from home or obtain and provide as needed 20. Consult pharmacy regarding effects of med's affecting mobility, cognition, and alternatives 21. Obtain physician order for PT if risk factors associated with mobility are present 22. Obtain physician order for OT as appropriate 23. Utilize diversional activities 24. Educate patient and patient appeals representative how to maintain a safe environment during visitationtimes (notify nurse prior to leaving bedside) 25. Consider appropriateness of medical or non-medical instrument technician 26. Set up voiding schedule as appropriate [...] Description: INTERVENTIONS: 1. Encourage patient or legal appeals representative to report early pain and ask [...] per policy 9. Teach patient or legal appeals representative interventions for comforting Note: Evaluation of [...] at the bedside 7. Instruct patient/ patient appeals representative about use of safety devices 8. Include patient/ patient appeals representative in decisions related to safety Note: [...] hygiene technique. 7. Identify and instruct patient/patient appeals representative in use of appropriate isolation precautionsfor identified infection/symptoms. 8. Provide and discuss with patient/patient appeals representative on educational MDRO sheet. 9. Encourage and monitor nutritional status daily and consult chute puller if indicated. 10. Implement neutropenic guidelines as needed. Note: Evaluation of progress towards goal: Wound culture pending. Iv zosyn, vanco, and flagyl administered 04/08. Problem: Knowledge Deficit Goal: Patient/patient appeals representative demonstrates understanding of disease process, treatment [...] Collaborate with ancillary departments 14. Include patient/patient appeals representative in decisions related to anxiety Note: [...] 6. Collaborate with pastoral/spiritual care, social work msw, mental health counselor as needed. 7. Instruct patient on diversional activities such as physical activity, distraction, and deep breathing exercises to assist with coping 8. Involve patient's appeals representative in care Note: Evaluation of progress towards goal: Emotional support provided by RN and pts SO. documented [facility] History of Present illness Narrative* George Pisano [...] resident's note, unless otherwise specified. * George Pisano MD - 04/10/2024 6:15 AM EST Gynecology [...] DC later tonight Zain Pagan, MS3 [facility] Resident Attestation I have seen and evaluated the patient, and have also reviewed the documentation above. I have repeated and performed the chong portions of the physical exam and concur with the student's findings. I agree with the plan as noted above with any changes made as necessary. George Pisano MD Health Worker Resident PGY-1 04/10/24 7:50 AM If questions [...] PO antibiotics, home soon * Nicholas Osuna, [facility] - 04/09/2024 9:57 AM EST Pharmacokinetic Consult [...] Date/Time Wound culture superficial includes gram stain [[id number]] Collected: 04/08/242024 Specimen: Wound Swab Updated: 04/08/24 233 Gram Stain Result >25 WHITE BLOOD CELLS/LPF 0 SQUAMOUS EPITHELIAL CELLS/LPF FEW GRAM POSITIVE COCCI Culture PENDING Urine culture [[id number]] Collected: 04/08/24 1616 Specimen: Urine Updated: 04/08/24 1723 Blood culture [[id number]] Collected: 04/08/24 1411 Specimen: Blood Updated: 04/09/24 0229 Culture NO GROWTH <24 HRS SARS/FLU A+B/RSV by NAAT/Molecular (M4RT Collection Tube) [[id number]] Collected: 04/08/24 1403 Specimen: Nasopharynx Updated: 04/08/24 1506 FLU A PCR Negative FLU B PCR Negative RSV by PCR Negative SARS CoV 2 BY PCR Not Detected Blood culture [[id number]] Collected: 04/08/24 1343 Specimen: Blood Updated: 04/09/24 [...] clinical status. Thank you for consulting. Nicholas Osuan, PharmD, BCPS [id number] * Jaziel Crump MD - 04/09/2024 7:25 [...] of care per primary. Sherri Miranda MS3 [facility] 04/09/24 7:25 AM Jaziel Crump MD PGY-3 Surgery Resident 04/09/24 7:25 AM Cosigned by Benjamin Francis MD at 04/09/2024 10:19 PM EST Associated attestation - Benjamin Francis MD - 04/09/2024 10:19 PM EST documented in this encounterSelect Medical [facility] Progress note* Discharge Planning Note - Trudi Patel - 04/10/2024 11:15 AM EST DISCHARGE PLANNING NOTE Referral sent to multiple facilities or agencies due to patient insurance type/difficult placement/patient is without preference. [facility] [id number] Progress note* Discharge Planning Note - Nicky Buchanan RN - 04/10/2024 10:35 AM EST DISCHARGE PLANNING NOTE Per RN during discharge transition rounds, barriers to discharge are: No barriers. [place] [facility]. Patient states that she is not comfortable doing her own wound care. Has family that assist 4-5 times per week with wound care. Discharge Plan: Plan is home with HCC if able to find company to agree to care. Will arrange outpatient wound care if unable to find accepting [facility]. Software Engineering Project Manager will continue to follow for any discharge needs. - Nicky Buchanan RN 04/10/24 10:38 AM [facility] [id number] Plan of care note* Plan of Care - Effie Keene RN - 04/10/2024 8:07 AM EST Problem: Pain Goal: Patient goal is pain score less than 4, able to rest, and participant in treatment plan as appropriate Description: INTERVENTIONS: 1. Encourage patient or legal appeals representative to report early pain and ask [...] per policy 9. Teach patient or legal appeals representative interventions for comforting Outcome: Progressing Note: [...] at the bedside 7. Instruct patient/ patient appeals representative about use of safety devices 8. Include patient/ patient appeals representative in decisions related to safety Outcome: [...] hygiene technique. 7. Identify and instruct patient/patient appeals representative in use of appropriate isolation precautionsfor identified infection/symptoms. 8. Provide and discuss with patient/patient appeals representative on educational MDRO sheet. 9. Encourage and monitor nutritional status daily and consult chute puller if indicated. 10. Implement neutropenic guidelines as needed. Outcome: Progressing Note: Evaluation of progress towards goal: Patient afebrile, vital signs stable at this time. Continuing to monitor. Problem: Knowledge Deficit Goal: Patient/patient appeals representative demonstrates understanding of disease process, treatment [...] be free from fall Description: Interventions: 1. [place] to environment 2. Hourly rounds addressing the [...] non-skid footwear 11. Teach patient and patient appeals representative to maintain environment for safety and [...] (cane, walker) within reach 19. Request patient appeals representative bring adaptive equipment/mobility aids from home or obtain and provide as needed 20. Consult pharmacy regarding effects of med's affecting mobility, cognition, and alternatives 21. Obtain physician order for PT if risk factors associated with mobility are present 22. Obtain physician order for OT as appropriate 23. Utilize diversional activities 24. Educate patient and patient appeals representative how to maintain a safe environment during visitationtimes (notify nurse prior to leaving bedside) 25. Consider appropriateness of medical or non-medical instrument technician 26. Set up voiding schedule as appropriate (every 2 hours) Outcome: Progressing Note: Evaluation of progress towards goal: Patient remains free from falls at this time. Interventions in place to help prevent falls. Continuing to monitor. Problem: Low Risk Fall Score Description: Nath Fall Score of 0 - 24 or indicated by [facility] Assessment Goal: Patient should be free from fall Description: Interventions: 1. [place] to environment 2. Hourly rounds addressing the [...] non-skid footwear 11. Teach patient and patient appeals representative to maintain environment for safety and engage in all aspects of fall prevention program Outcome: Progressing Note: Evaluation of progress towards goal: Patient remains free from falls at this time. Interventions in place to help prevent falls. Continuing to monitor. [facility] Hospital course Narrative* George Pisano MD - [...] ED, the patient had been evaluated at [facility] and was given 1 dose [...] 200 mg given BID during inpatient stay [place] carbonate 600 mg PO given qd during [...] Zaki Gupta 04/10/24 3rd Year Medical Student, [facility] Resident Attestation I have seen and evaluated the patient, and have also reviewed the documentation above. I have repeated and performed the chong portions of the physical exam and concur with the student's findings. I agree with the plan as noted above with any changes made as necessary. George Pisano MD Health Worker Resident PGY-1 04/10/24 9:39 AM Cosigned by Milad Hernandez MD at 04/10/2024 10:59 AM EST Associated attestation - Milad Hernandez MD - 04/10/2024 10:59 AM EST I was present with resident during the history and physical exam. I discussed the case with the resident and agree with the findings and plan as documented in the resident's note, unless otherwise specified. documented in this encounterSelect Medical [facility] Plan of care note * Plan of Care - Corby Bojorquez RN - 04/09/2024 7:31 PM EST Problem: Pain Goal: Patient goal is pain score less than 4, able to rest, and participant in treatment plan as appropriate Description: INTERVENTIONS: 1. Encourage patient or legal appeals representative to report early pain and ask [...] per policy 9. Teach patient or legal appeals representative interventions for comforting Outcome: Progressing Note: [...] at the bedside 7. Instruct patient/ patient appeals representative about use of safety devices 8. Include patient/ patient appeals representative in decisions related to safety Outcome: [...] hygiene technique. 7. Identify and instruct patient/patient appeals representative in use of appropriate isolation precautionsfor identified infection/symptoms. 8. Provide and discuss with patient/patient appeals representative on educational MDRO sheet. 9. Encourage and monitor nutritional status daily and consult chute puller if indicated. 10. Implement neutropenic guidelines as needed. Outcome: Progressing Note: Evaluation of progress towards goal: Standard precautions and hand hygiene used to prevent infection Problem: Knowledge Deficit Goal: Patient/patient appeals representative demonstrates understanding of disease process, treatment [...] Collaborate with ancillary departments 14. Include patient/patient appeals representative in decisions related to anxiety Outcome: [...] be free from fall Description: Interventions: 1. [place] to environment 2. Hourly rounds addressing the [...] non-skid footwear 11. Teach patient and patient appeals representative to maintain environment for safety and [...] (cane, walker) within reach 19. Request patient appeals representative bring adaptive equipment/mobility aids from home or obtain and provide as needed 20. Consult pharmacy regarding effects of med's affecting mobility, cognition, and alternatives 21. Obtain physician order for PT if risk factors associated with mobility are present 22. Obtain physician order for OT as appropriate 23. Utilize diversional activities 24. Educate patient and patient appeals representative how to maintain a safe environment during visitationtimes (notify nurse prior to leaving bedside) 25. Consider appropriateness of medical or non-medical instrument technician 26. Set up voiding schedule as appropriate [...] 6. Collaborate with pastoral/spiritual care, social work msw, mental health counselor as needed. 7. Instruct patient on diversional activities such as physical activity, distraction, and deep breathing exercises to assist with coping 8. Involve patient's appeals representative in care Outcome: Completed Note: Evaluation of progress towards goal: completed [facility]02-18-2025 Progress note* Discharge Planning Note - Nicky Buchanan RN - 04/09/2024 2:58 PM EST DISCHARGE PLANNING NOTE Update: [facility]errals [facility] [place] [facility] per patient choice sent. Waiting on reply. - Nicky Buchanan RN 04/09/24 2:59 PM [facility]02-18-2025 Progress note* Discharge Planning Note - Nicky Buchanan RN - 04/09/2024 10:45 AM EST DISCHARGE PLANNING NOTE Multi Operation Machine Operator met with patient, introduced self, and explained role. Patient educated on safe discharge plan. Pt admitted 04/08/2024 with Abdominal wall cellulitis [L03.311] Sepsis ([facility]) [A41.9] Postoperative surgical complication involving genitourinary [...] 03/25/2024 Prolonged emergence from general anesthesia Seizure ([facility]) Last one 03-11-2024 Prior to admission patient was living with family and self care. Medical equipment patient used prior to admission includes: None. Patient denies need for transportation/ food/ prescription medication assistance resources. Patient lives with minor children and boyfriend. Has support from mother. Referral sent to [facility] per patient choice- her daughter has used them before. PCP: CORINE GOLD MD Pharmacy:[facility] in [place] PCP and pharmacy confirmed with patient. CN [...] - Nicky Buchanan RN 04/09/24 10:46 AM [facility] [id number] Consult note* George Pisano MD - 04/09/2024 7:52 AM EST Gynecology Oncology Consultation Date of Admission: 04/08/2024 1:04 PM Chief Complaint : Chief Complaint Patient presents with Flu Symptoms Abdominal Pain History of Present Illness : April Nicholson is a 28 y.o. 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 She went [facility] ED yesterday and was given 1 dose [...] 03/25/2024 Prolonged emergence from general anesthesia Seizure ([facility]) Last one 03-11-2024 Past Surgical History: Past Surgical History: Procedure Laterality Date APPENDECTOMY SECTION CHOLECYSTECTOMY [facility] LYSIS OF ADHESIONS N/A 03/28/2024 [facility] LYSIS OF ADHESIONS N/A 03/28/2024 Performed by Jesse Sultana MD at [facility] SALPINGO OOPHORECTOMY/FROZEN SECTION Bilateral 03/28/2024 Performed by Mundo Martinez MD at [facility] DILATION AND CURETTAGE OF UTERUS PARTIAL [...] Physical Activity: Insufficiently Active (01/23/2024) Received from [facility] Exercise Vital Sign Days of Exercise per Week: 7 days Minutes of Exercise per Session: 10 min Stress: Stress Concern Present (01/23/2024) Received from [facility] [place] [employer] - Occupational Stress Questionnaire Feeling of Stress : Rather much Social Connections: Socially Integrated (01/23/2024) Received from [facility] Social Connection and Isolation Panel [NHANES] Frequency of Communication with Friends and Family: More than three times a week Frequency of Social Gatherings with Friends and Family: Twice a week Attends Adventism Services: More than 4 times per year [...] [facility] via [facility] pager at [phone]. Resident Attestation I have seen and evaluated the patient, and have also reviewed the documentation above. I have repeated and performed the chong portions of the physical exam and concur with the student's findings. I agree with the plan as noted above with any changes made as necessary. George Pisano MD Health Worker Resident PGY-1 04/09/24 7:52 AM Cosigned by [...] transdermal estrogen for vasomotor symptoms. [facility] Plan of care note* Plan of Care - Fredi Lowe RN - 04/09/2024 7:52 AM EST Problem: Pain Goal: Patient goal is pain score less than 4, able to rest, and participant in treatment plan as appropriate Description: INTERVENTIONS: 1. Encourage patient or legal appeals representative to report early pain and ask [...] per policy 9. Teach patient or legal appeals representative interventions for comforting Outcome: Progressing Note: [...] at the bedside 7. Instruct patient/ patient appeals representative about use of safety devices 8. Include patient/ patient appeals representative in decisions related to safety Outcome: [...] hygiene technique. 7. Identify and instruct patient/patient appeals representative in use of appropriate isolation precautionsfor identified infection/symptoms. 8. Provide and discuss with patient/patient appeals representative on educational MDRO sheet. 9. Encourage and monitor nutritional status daily and consult chute puller if indicated. 10. Implement neutropenic guidelines as needed. Outcome: Progressing Note: Evaluation of progress towards goal: on iv atb. Cont to trend labs.fevers Problem: Knowledge Deficit Goal: Patient/patient appeals representative demonstrates understanding of disease process, treatment [...] Collaborate with ancillary departments 14. Include patient/patient appeals representative in decisions related to anxiety Outcome: [...] 6. Collaborate with pastoral/spiritual care, social work msw, mental health counselor as needed. 7. Instruct patient on diversional activities such as physical activity, distraction, and deep breathing exercises to assist with coping 8. Involve patient's appeals representative in care Outcome: Progressing Note: Evaluation of progress towards goal: able to voice concerns. Problem: Moderate - High Risk Fall Score Description: Nath Fall Score of =/> 25 or indicated by [facility] Assessment Goal: Patient should be free from fall Description: Interventions: 1. [place] to environment 2. Hourly rounds addressing the [...] non-skid footwear 11. Teach patient and patient appeals representative to maintain environment for safety and [...] (cane, walker) within reach 19. Request patient appeals representative bring adaptive equipment/mobility aids from home or obtain and provide as needed 20. Consult pharmacy regarding effects of med's affecting mobility, cognition, and alternatives 21. Obtain physician order for PT if risk factors associated with mobility are present 22. Obtain physician order for OT as appropriate 23. Utilize diversional activities 24. Educate patient and patient appeals representative how to maintain a safe environment during visitationtimes (notify nurse prior to leaving bedside) 25. Consider appropriateness of medical or non-medical instrument technician 26. Set up voiding schedule as appropriate (every 2 hours) Outcome: Progressing Note: Evaluation of progress towards goal: free from falls, cont to use nonskid footwear with ambulation. Pt instructed to call out when appropriate to aid with ambulation [facility]02-18-2025 Consult note* George Pisano MD - 04/09/2024 7:52 AM EST Gynecology Oncology Consultation Date of Admission: 04/08/2024 1:04 PM Chief Complaint : Chief Complaint Patient presents with Flu Symptoms Abdominal Pain History of Present Illness : April Nicholson is a 28 y.o. 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 She went [facility] ED yesterday and was given 1 dose [...] 03/25/2024 Prolonged emergence from general anesthesia Seizure ([facility]) Last one 03-11-2024 Past Surgical History: Past Surgical History: Procedure Laterality Date APPENDECTOMY SECTION CHOLECYSTECTOMY [facility] LYSIS OF ADHESIONS N/A 03/28/2024 Performed by Mundo Martinez MD at [facility] LYSIS OF ADHESIONS N/A 03/28/2024 Performed by Jesse Sultana MD at [facility] [place] OOPHORECTOMY/FROZEN SECTION Bilateral 03/28/2024 Performed by Mundo Martinez MD at [facility] DILATION AND CURETTAGE OF UTERUS PARTIAL [...] Physical Activity: Insufficiently Active (01/23/2024) Received from [facility] Exercise Vital Sign Days of Exercise per Week: 7 days Minutes of Exercise per Session: 10 min Stress: Stress Concern Present (01/23/2024) Received from [facility] [place] of Occupational [facility] - Occupational Stress Questionnaire Feeling of Stress : Rather much Social Connections: Socially Integrated (01/23/2024) Received from [facility] Social Connection and Isolation Panel [NHANES] Frequency of Communication with Friends and Family: More than three times a week Frequency of Social Gatherings with Friends and Family: Twice a week Attends Adventism Services: More than 4 times per year [...] If questions or concerns, please contact via [facility] pager at [phone]. Resident Attestation I have seen and evaluated the patient, and have also reviewed the documentation above. I have repeated and performed the chong portions of the physical exam and concur with the student's findings. I agree with the plan as noted above with any changes made as necessary. George Pisano MD Health Worker Resident PGY-1 04/09/24 7:52 AM Cosigned by [...] 03/25/2024 Prolonged emergence from general anesthesia Seizure ([facility]) Last one 03-11-2024 Past Surgical History: Procedure Laterality Date APPENDECTOMY SECTION CHOLECYSTECTOMY [facility] LYSIS OF ADHESIONS N/A 03/28/2024 Performed by Mundo Martinez MD at [facility] LYSIS OF ADHESIONS N/A 03/28/2024 Performed by Jesse Sultana MD at [facility] [place] OOPHORECTOMY/FROZEN SECTION Bilateral 03/28/2024 Performed by Mundo Martinez MD at [facility] DILATION AND CURETTAGE OF UTERUS PARTIAL [...] to allergen)., Disp: 2 each, Rfl: 1 eyqeuivxjpr-euuclqihi-mgqazfjo (TRELEGY ELLIPTA) 200-62.5-25 mcg blister with device, [...] Resource Strain: Low Risk (01/23/2024) Received from [facility] Overall Financial Resource Strain (CARDIA) Difficulty of Paying Living Expenses: Not very hard Food Insecurity: No Food Insecurity (02/09/2024) Hunger Screening Food Insecurity - Worry: Never True Food Insecurity - Inability: Never True Transportation Needs: Unknown (01/23/2024) Received from [facility] PRAPARE - Transportation Lack of Transportation (Medical): Patient declined Lack of Transportation (Non-Medical): No Physical Activity: Insufficiently Active (01/23/2024) Received from [facility] Exercise Vital Sign Days of Exercise per Week: 7 days Minutes of Exercise per Session: 10 min Stress: Stress Concern Present (01/23/2024) Received from [facility] [place] [facility] - Occupational Stress Questionnaire Feeling of Stress : Rather much Social Connections: Socially Integrated (01/23/2024) Received from [facility] Social Connection and Isolation Panel [NHANES] Frequency of Communication with Friends and Family: More than three times a week Frequency of Social Gatherings with Friends and Family: Twice a week Attends Adventism Services: More than 4 times per year Active Member of Clubs or Organizations: Yes Attends Club or Organization Meetings: More than 4 times per year Marital Status: Living with partner Interpersonal Safety: Not on file Housing Instability: Low Risk (01/23/2024) Received from [facility] Housing Stability Vital Sign Unable to Pay [...] General Surgery B 6a - 6p Pager: [phone] 6p - 6a Pager: [phone] Cosigned by Benjamin Francis MD at 04/09/2024 9:48 AM EST Associated attestation - Benjamin Francis MD - 04/09/2024 9:48 AM EST Attending attestation: I reviewed the resident's note and discussed the case with the resident. Additional findings/notes: Local wound care. Will sign-off. Benjamin Francis MD, [facility] General Surgery and Minimally Invasive Surgery [address] [place] [address], [address] [place] [address] Office: documented in this encounter[facility] Plan of care note * Plan of Care - Lo Peres RN - 04/09/2024 4:51 AM EST Problem: Pain Goal: Patient goal is pain score less than 4, able to rest, and participant in treatment plan as appropriate Description: INTERVENTIONS: 1. Encourage patient or legal appeals representative to report early pain and ask [...] per policy 9. Teach patient or legal appeals representative interventions for comforting Note: Evaluation of [...] at the bedside 7. Instruct patient/ patient appeals representative about use of safety devices 8. Include patient/ patient appeals representative in decisions related to safety Note: [...] hygiene technique. 7. Identify and instruct patient/patient appeals representative in use of appropriate isolation precautionsfor identified infection/symptoms. 8. Provide and discuss with patient/patient appeals representative on educational MDRO sheet. 9. Encourage and monitor nutritional status daily and consult chute puller if indicated. 10. Implement neutropenic guidelines as needed. Note: Evaluation of progress towards goal: Wound culture pending. Iv zosyn, vanco, and flagyl administered 04/08. Problem: Knowledge Deficit Goal: Patient/patient appeals representative demonstrates understanding of disease process, treatment [...] Collaborate with ancillary departments 14. Include patient/patient appeals representative in decisions related to anxiety Note: [...] 6. Collaborate with pastoral/spiritual care, social work msw, mental health counselor as needed. 7. Instruct patient on diversional activities such as physical activity, distraction, and deep breathing exercises to assist with coping 8. Involve patient's appeals representative in care Note: Evaluation of progress towards goal: Emotional support provided by RN and pts SO. [facility] Procedure note* Jaziel Crump MD - 04/08/2024 [...] the resident's note. Additional Notes/Findings: [facility] Procedure note* Jaziel Crump MD - 04/08/2024 [...] resident's note. Additional Notes/Findings: documented in this encounterSelect [facility] Consult note* Kinsey Toussaint MD - 04/08/2024 [...] 03/25/2024 Prolonged emergence from general anesthesia Seizure ([facility]) Last one 03-11-2024 Past Surgical History: Procedure Laterality Date APPENDECTOMY SECTION CHOLECYSTECTOMY [facility] LYSIS OF ADHESIONS N/A 03/28/2024 Performed by Mundo Martinez MD at [place] [id number] LYSIS OF ADHESIONS N/A 03/28/2024 Performed by Jesse Sultana MD at [facility] [place] OOPHORECTOMY/FROZEN SECTION Bilateral 03/28/2024 Performed by Mundo Martinez MD at [facility] DILATION AND CURETTAGE OF UTERUS PARTIAL [...] to allergen)., Disp: 2 each, Rfl: 1 emscyjmgzvd-fuyxtfflo-frarbrfg (TRELEGY ELLIPTA) 200-62.5-25 mcg blister with device, [...] Resource Strain: Low Risk (01/23/2024) Received from [facility] Overall Financial Resource Strain (CARDIA) Difficulty of Paying Living Expenses: Not very hard Food Insecurity: No Food Insecurity (02/09/2024) Hunger Screening Food Insecurity - Worry: Never True Food Insecurity - Inability: Never True Transportation Needs: Unknown (01/23/2024) Received from [facility] PRAPARE - Transportation Lack of Transportation (Medical): Patient declined Lack of Transportation (Non-Medical): No Physical Activity: Insufficiently Active (01/23/2024) Received from [facility] Exercise Vital Sign Days of Exercise per Week: 7 days Minutes of Exercise per Session: 10 min Stress: Stress Concern Present (01/23/2024) Received from [facility] [place] [facility] - Occupational Stress Questionnaire Feeling of Stress : Rather much Social Connections: Socially Integrated (01/23/2024) Received from [facility] Social Connection and Isolation Panel [NHANES] Frequency of Communication with Friends and Family: More than three times a week Frequency of Social Gatherings with Friends and Family: Twice a week Attends Adventism Services: More than 4 times per year Active Member of Clubs or Organizations: Yes Attends Club or Organization Meetings: More than 4 times per year Marital Status: Living with partner Interpersonal Safety: Not on file Housing Instability: Low Risk (01/23/2024) Received from [facility] Housing Stability Vital Sign Unable to Pay [...] General Surgery B 6a - 6p Pager: [phone] 6p - 6a Pager: [phone] Cosigned by Benjamin Francis MD at 04/09/2024 9:48 AM EST Associated attestation - Benjamin Francis MD - 04/09/2024 9:48 AM EST Attending attestation: I reviewed the resident's note and discussed the case with the resident. Additional findings/notes: Local wound care. Will sign-off. Benjamin Francis MD, [facility] General Surgery and Minimally Invasive Surgery [address] [place] [address], [address] [place] [address] Office: [facility] Work Phone: [phone] 927-224802-17-2025 Physician Emergency department Note* Yordy Melton, DO - 04/08/2024 1:32 PM EST Images from the original note were not included. [facility] - EMERGENCY DEPARTMENT Pt Name: April Nicholson [...] states that she was recently evaluated at [facility] yesterday and was given Keflex [...] 03/25/2024 Prolonged emergence from general anesthesia Seizure ([facility]) Last one 03-11-2024 Past Surgical History: Past Surgical History: Procedure Laterality Date APPENDECTOMY SECTION CHOLECYST[facility]OMY [facility] LYSIS OF ADHESIONS N/A 03/28/2024 Performed by Mundo Martinez MD at [facility] LYSIS OF ADHESIONS N/A 03/28/2024 Performed by Jesse Sultana MD at [facility] [place] OOPHORECTOMY/FROZEN SECTION Bilateral 03/28/2024 Performed by Mundo Martinez MD at [facility] DILATION AND CURETTAGE OF UTERUS PARTIAL [...] Physical Activity: Insufficiently Active (01/23/2024) Received from [facility] Exercise Vital Sign Days of Exercise per Week: 7 days Minutes of Exercise per Session: 10 min Stress: Stress Concern Present (01/23/2024) Received from [facility] [place] [facility] - Occupational Stress Questionnaire Feeling of Stress : Rather much Social Connections: Socially Integrated (01/23/2024) Received from [facility] Social Connection and Isolation Panel [NHANES] Frequency of Communication with Friends and Family: More than three times a week Frequency of Social Gatherings with Friends and Family: Twice a week Attends Adventism Services: More than 4 times per year [...] nursing note reviewed. Exam conducted with a shrink pit supervisor present. Constitutional: General: She is in acute [...] Given 04/08/24 1640) lidocaine-EPINEPHrine (XYLOCAINE W/EPI) 1 %-1:420582 injection 30 mL (20 mL intradermal Given [...] and physical exam, pt requires admission to [facility]Onc for IV antibiotics, pain control, general surgery [...] [JR] 1322 Pain Score: 10 [JR] 1406 [facility]/Onc evaluating patient at bedside [JR] 1413 X-ray [...] 12 lead Sinus tachycardia, heart rate 103, MN interval 134, QRS 75, QTC 427. No [...] [facility] [...] 4:29 PM Comment Diagnosis: Abdominal wall cellulitis [[id number]] Attending Provider: MILAD HERNANDEZ [[id number]] Estimated length of stay?: >2 midnights/In-patient only [...] Attestation: I, Dr. Melton personally performed a idsb-uj-agtv diagnostic evaluation on this patient. I have [...] Resident 04/08/242000 Yordy Melton DO 04/09/24 0734 [facility] Work Phone: [phone] Emergency department Note* Yordy Melton DO - 04/08/2024 1:32 PM EST Images from the original note were not included. [facility] - EMERGENCY DEPARTMENT Pt Name: April Nicholson [...] states that she was recently evaluated at [facility] yesterday and was given Keflex [...] 03/25/2024 Prolonged emergence from general anesthesia Seizure ([facility]) Last one 03-11-2024 Past Surgical History: Past Surgical History: Procedure Laterality Date APPENDECTOMY SECTION CHOLECYST[facility]OMY [facility] LYSIS OF ADHESIONS N/A 03/28/2024 Performed by Mundo Martinez MD at [facility] LYSIS OF ADHESIONS N/A 03/28/2024 Performed by Jesse Sultana MD at [facility] [place] OOPHORECTOMY/FROZEN SECTION Bilateral 03/28/2024 Performed by Mundo Martinez MD at [facility] DILATION AND CURETTAGE OF UTERUS PARTIAL [...] Physical Activity: Insufficiently Active (01/23/2024) Received from [facility] Exercise Vital Sign Days of Exercise per Week: 7 days Minutes of Exercise per Session: 10 min Stress: Stress Concern Present (01/23/2024) Received from [facility] [place] [facility] [employer] [facility] - Occupational Stress Questionnaire Feeling of Stress : Rather much Social Connections: Socially Integrated (01/23/2024) Received from [facility] Social Connection and Isolation Panel [NHANES] Frequency of Communication with Friends and Family: More than three times a week Frequency of Social Gatherings with Friends and Family: Twice a week Attends Adventism Services: More than 4 times per year [...] nursing note reviewed. Exam conducted with a shrink pit supervisor present. Constitutional: General: She is in acute [...] intravenous Given 04/08/241639) lidocaine-EPINEPHrine (XYLOCAINE W/EPI) 1 %-1:631876 injection 30 mL (20 mL intradermal Given [...] and physical exam, pt requires admission to [facility]Onc for IV antibiotics, pain control, general surgery [...] [JR] 1322 Pain Score: 10 [JR] 1406 [facility]/Onc evaluating patient at bedside [JR] 1413 X-ray [...] 12 lead Sinus tachycardia, heart rate 103, MN interval 134, QRS 75, QTC 427. No [...] [facility] [...] 4:29 PM Comment Diagnosis: Abdominal wall cellulitis [[id number]] Attending Provider: MILAD HERNANDEZ [[id number]] Estimated length of stay?: >2 midnights/In-patient only [...] Attestation: I, Dr. Melton personally performed a dcqu-oo-ayew diagnostic evaluation on this patient. I have [...] requesting labs in back. documented in this encounterSelect [facility] Emergency department Note* Tim Jeffery CNA - 04/08/2024 11:29 AM EST Pt tearful in triage, lots of recent blood draws, requesting labs in back. [facility]02-17-2025 Miscellaneous Notes* Telephone Encounter - Sofia Ku CMA - 04/08/2024 8:53 AM EST Patient called reporting persistent fever of 105 F that is not reducing with medication. She has been to the ED in [place] multiple times and has been sent home every time. She also reports pain andgreen drainage from her surgical incision. Spoke to Svetlana Ye PA-C; she recommends that patient visit [facility] ED and and wants to inform patient that our team and residents will be able to round on her there. Patient is agreeable to plan. documented in this encounterSelect [facility] Telephone encounter Note* Telephone Encounter - Sofia Ku CMA - 04/08/2024 8:53 AM EST Patient called reporting persistent fever of 105 F that is not reducing with medication. She has been to the ED in [place] multiple times and has been sent home every time. She also reports pain andgreen drainage from her surgical incision. Spoke to Svetlana Ye PA-C; she recommends that patient visit [facility] ED and and wants to inform patient that our team and residents will be able to round on her there. Patient is agreeable to plan. [facility] History of Present illness Narrative* Yumiko Worrell [...] 01/24/2023 Polycystic ovaries 01/24/2023 Psychogenic nonepileptic seizure ([facility]/HCC) 01/24/2023 Class 3 severe obesity due to excess calories without serious comorbidity with body mass index (BMI) of 50.0 to 59.9 in adult ([facility]) 03/21/2023 Mild persistent asthma with (acute) exacerbation ([facility]) 10/10/2023 Fatigue 01/01/2024 Encounter for long-term [...] Acute exacerbation of asthma with allergic rhinitis ([facility]) Allergies Asthma ([facility]) At low risk for fall Bipolar affective, mixed (HCC) ([facility]) Change in blood pressure Cholecystitis 2008 Depressive disorder ([facility]) OMID (generalized anxiety disorder) ([facility]) History of hysterectomy 10/01/2021 Insomnia, persistent Migraines ([facility]) Mild persistent asthma without complication ([facility]) Morbid obesity with BMI of 40.0-44.9, adult ([facility]) PCOS (polycystic ovarian syndrome) Right otitis media Seizures ([facility]/HCC) HISTORY PAST MEDICAL HISTORY SOCIAL HISTORY Past Medical History: Diagnosis Date Acute exacerbation of asthma with allergic rhinitis ([facility]) Allergies Asthma ([facility]) At low risk for fall Bipolar affective, mixed (HCC) ([facility]) Change in blood pressure high and low Cholecystitis 2008 Chronic migraine without aura without status migrainosus, not intractable ([facility]) Depressive disorder ([facility]) OMID (generalized anxiety disorder) ([facility]) History of hysterectomy 10/01/2021 Insomnia, persistent Migraines (CMS/HCC) Mild persistent asthma without complication ([facility]) Morbid obesity with BMI of 40.0-44.9, adult ([facility]) PCOS (polycystic ovarian syndrome) Psychogenic nonepileptic seizure ([facility]) Right otitis media Seizures ([facility]) stressed induced Social History Tobacco Use [...] nursing note reviewed. Exam conducted with a shrink pit supervisor present. Vitals: Estimated body mass index is [...] of: Zay Blas DO documented in this encounterParkland Health [id number] Miscellaneous Notes* Telephone Encounter - Jania Garrett CMA - 04/01/2024 11:12 AM EST Images from the original note were not included. Medication Received: Yesterday April Nicholson [facility] Gen Surg [facility] Clinical Staff Hello good afternoon I m [...] see how she was feeling today. Our MANUFACTURING TECH wanted to make sure that she's not having any nausea, vomiting, fever or chills. The patient didn't answer, so I left her a message. documented in this encounterSelect [facility] Telephone encounter Note* Telephone Encounter - Jania Garrett CMA - 04/01/2024 11:12 AM EST Images from the original note were not included. Medication Received: [facility] Clinical Staff Hello good afternoon I m still in a lot of pain from my surgery I ve been taking tynol and the pain pills that were given to me every four hours I was wondering if you can send it a refill of those to [facility] CMA 04/01/24 11:15 a.m. I tried to call the patient to check in with her & see how she was feeling today. Our MANUFACTURING TECH wanted to make sure that she's not having any nausea, vomiting, fever or chills. The patient didn't answer, so I left her a message. [facility]02-10-[facility]25 History of Present illness Narrative* MARY Cintron [...] MARY Cintron 04/01/24 1107 documented in this encounterSelect [facility] Miscellaneous Notes* Telephone Encounter - Samira Hartman [...] with her sick child. documented in this encounterSelect [facility] Telephone encounter Note* Telephone Encounter - Samira [...] also. Message to Svetlana HERNANDEZ. [facility]02-10-2025 Telephone encounter Note* Telephone Encounter - Samira [...] her with her sick child. [facility]02-03-2025 Instructions* Patient Instructions* Mari Saldaña RN - 03/25/2024 2:15 PM EST Your surgery/procedure is scheduled at [facility] on 03-28-2024 at 9am Arrival Time: 7am [facility] Address: [address] [place] [address] Park in Parking lot located on [facility]. Report to the Entrance B. Check in at the information desk the surgery. The waiting room located on the second floor. If you have any questions prior to surgery, please call Pre-Admission Clinic at [phone] between 7:30 am and 4:30 pm Monday through Monday. If you have questions the morning of surgery, please call the Pre-op Department at [phone]. Notify your SURGEON if you develop any [...] piercings ,hair extensions that contain metal, nail egyptian, make-up, and contact lens. You may brush [...] RIGHTS AND RESPONSIBILITIES As a patient at [facility], you have the right to: Receive medical care and be informed of who is taking care of you Be treated with dignity and respect Have a family member/appeals representative of choice and your physician notified of your admission Receive information and actively participate in decisions about your care and treatment Refuse care, treatment and services Decide who may provide your support and speak for you Access advent and spiritual services Participate in ethical issues [...] of hospital charges and payment methods Patient/patient appeals representative responsibilities are to: Provide information about [...] surgery in clean clothes. documented in this encounterSelect [facility] Miscellaneous Notes* Telephone Encounter - Nicky Zapata - 03/21/2024 11:47 AM EST ----- Message from Dr. Mundo Martinez MD sent at 03/21/2024 11:39 AM EST ----- Should be ok ----- Message ----- From: Nicky Zapata Sent: 03/21/2024 9:43 AM EST To: Mundo Martinez MD Pt is going up to the [facility] tomorrow and getting migraine infusion Vyepti infusion for migranies, during the infusion pt will get Toradol and benadryl, patient has surgery next week and she wants to make sure this infusion is ok to take and will not delay surgery, please advise. * Telephone Encounter - Nicky Zapata - 03/21/2024 11:47 AM EST Pt was notified of Dr. Martinez response documented in this encounterSelect [facility] Telephone encounter Note* Telephone Encounter - Nicky Zapata - 03/21/2024 11:47 AM EST ----- Message from Dr. Mundo Martinez MD sent at 03/21/2024 11:39 AM EST ----- Should be ok ----- Message ----- From: Nicky Zapata Sent: 03/21/2024 9:43 AM EST To: Mundo Martinez MD Pt is going up to the [facility] tomorrow and getting migraine infusion Vyepti infusion for migranies, during the infusion pt will get Toradol and benadryl, patient has surgery next week and she wants to make sure this infusion is ok to take and will not delay surgery, please advise. [facility]01-30-2025 Telephone encounter Note* Telephone Encounter - Nicky Zapata - 03/21/2024 11:47 AM EST Pt was notified of Dr. Martinez response [facility]01-30-2025 NoteHNO ID: [id number] Author: SAGAR BARTH APRN.MANUFACTURING TECH Service: ? Author Type: Nurse Practitioner Type: [...] visit. Either the patient or their legal appeals representative has been informed of the risks [...] XL, Qudexy) Anti-Depressant and Antipsychotic Amitriptyline (Elavil) [place] (Eskalith, Lithobid) Nortriptyline (Pamelor, Aventyl) Anti-Migraine Dihydroergotamine [...] ZOLMitriptan (ZOMIG) 5 mg nasal sprayUse 1 [place] in the nose as needed at onset [...] capsule by mouth ann (more content not included)...[facility]01-30-2025 History of Present illness Narrative* Sagar Barth APRN.MANUFACTURING TECH - 03/21/2024 8:48 AM EST Images from [...] visit. Either the patient or their legal appeals representative has been informed of the risks [...] XL, Qudexy) Anti-Depressant and Antipsychotic Amitriptyline (Elavil) [place] (Eskalith, Lithobid) Nortriptyline (Pamelor, Aventyl) Anti-Migraine Dihydroergotamine [...] ZOLMitriptan (ZOMIG) 5 mg nasal spray^Use 1 [place] in the nose as needed at onset [...] these with the patient: yes Sagar Barth APRN.MANUFACTURING TECH HEADACHE SCORES: 12/05/2023 01/17/2024 03/20/2024 Headache Questions [...] Lymph 1.00 - 4.00 k/uL 0.84 Abs Lake <0.87 k/uL 0.06 Abs Eosin <0.46 k/uL [...] spontaneous and fluent without dysarthria. Short and assisted memory, cognition and general fund of knowledgeare [...] XL, Qudexy) Anti-Depressant and Antipsychotic Amitriptyline (Elavil) [place] (Eskalith, Lithobid) Nortriptyline (Pamelor, Aventyl) Blood Pressure [...] 30 minutes Sagar Barth APRN.FADY Headache Section [facility] March 21, 2024 documented in this encounterL[facility] History of Present illness Narrative* Vincent Peña, [...] previously seen pulmonary with Dr. Jason at [facility]. She has been treated with [...] Asthma BV (bacterial vaginosis) Depression Migraine Seizure ([facility]) Past Surgical History: Procedure Laterality Date APPENDECTOMY [...] (exposure to allergen). 06/07/22 Yes ELSIE Luke lrclxukrvan-isqokipsm-wtfewxig (TRELEGY ELLIPTA) 100-62.5-25 mcg blister with device [...] chest is warranted. Dr. Vincent Peña DO. [facility] Pulmonary & Critical Care Office: [phone] documented in this encounterSelect [facility] History of Present illness Narrative* Mundo Martinez [...] which is why she doesn't go to [place] or [place]. She has had diarrhea for the last [...] lot of steroids. 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 Last hospitalized a couple years ago. Not [...] Asthma BV (bacterial vaginosis) Depression Migraine Seizure ([facility]) Lamictal for non-epileptiform seizure and depression/anxiety [...] anomaly not found LOC (loss of consciousness) ([facility]) Migraine with aura and without status migrainosus, [...] procedures Referring and communicating with other health acute care assistant (not separately reported) Documenting clinical information in the electronic or other health record Independently interpreting results (not separately reported) and communicating results to the patient/family/caregiver Care coordination (not separately reported) [place] and lamictal, trazodone as needed MUNDO MARTINEZ MD documented in this encounterSelect [facility] History of Present illness Narrative* Yumiko Worrell [...] in female 12/19/2022 Mixed bipolar I disorder ([facility]) 01/24/2023 Chronic migraine without aura without status migrainosus, not intractable ([facility]) 01/24/2023 Generalized anxiety disorder ([facility]) 01/24/2023 Persistent disorder of initiating or maintaining sleep 01/24/2023 Mild persistent asthma ([facility]) 01/24/2023 Polycystic ovaries 01/24/2023 Psychogenic nonepileptic seizure ([facility]) 01/24/2023 Class 3 severe obesity due to excess calories without serious comorbidity with body mass index (BMI) of 50.0 to 59.9 in adult ([facility]) 03/21/2023 Mild persistent asthma with (acute) exacerbation ([facility]) 10/10/2023 Fatigue 01/01/2024 Encounter for long-term [...] Acute exacerbation of asthma with allergic rhinitis ([facility]) Allergies Asthma ([facility]) At low risk for fall Bipolar affective, mixed ([facility]) ([facility]) Change in blood pressure Cholecystitis 2009 Depressive disorder ([facility]) OMID (generalized anxiety disorder) ([facility]) History of hysterectomy 10/01/2021 Insomnia, persistent Migraines ([facility]) Mild persistent asthma without complication ([facility]) Morbid obesity with BMI of 40.0-44.9, adult ([facility]) PCOS (polycystic ovarian syndrome) Right otitis media Seizures ([facility]) HISTORY PAST MEDICAL HISTORY SOCIAL HISTORY Past Medical History: Diagnosis Date Acute exacerbation of asthma with allergic rhinitis ([facility]) Allergies Asthma ([facility]) At low risk for fall Bipolar affective, mixed (HCC) ([facility]) Change in blood pressure high and low Cholecystitis 2008 Chronic migraine without aura without status migrainosus, not intractable ([facility]) Depressive disorder ([facility]) OMID (generalized anxiety disorder) ([facility]) History of hysterectomy 10/01/2021 Insomnia, persistent Migraines ([facility]) Mild persistent asthma without complication ([facility]) Morbid obesity with BMI of 40.0-44.9, adult ([facility]) PCOS (polycystic ovarian syndrome) Psychogenic nonepileptic seizure ([facility]) Right otitis media Seizures ([facility]) stressed induced Social History Tobacco Use [...] nursing note reviewed. Exam conducted with a shrink pit supervisor present. Vitals: Estimated body mass index is [...] of: Zay Blas DO documented in this encounterParkland Health [id number] History of Present illness Narrative* Yumiko Worrell [...] in female 12/19/2022 Mixed bipolar I disorder ([facility]) 01/24/2023 Chronic migraine without aura without status migrainosus, not intractable ([facility]) 01/24/2023 Generalized anxiety disorder ([facility]) 01/24/2023 Persistent disorder of initiating or maintaining sleep 01/24/2023 Mild persistent asthma ([facility]) 01/24/2023 Polycystic ovaries 01/24/2023 Psychogenic nonepileptic seizure ([facility]) 01/24/2023 Class 3 severe obesity due to excess calories without serious comorbidity with body mass index (BMI) of 50.0 to 59.9 in adult ([facility]) 03/21/2023 Mild persistent asthma with (acute) exacerbation ([facility]) 10/10/2023 Fatigue 01/01/2024 Encounter for long-term [...] Acute exacerbation of asthma with allergic rhinitis ([facility]) Allergies Asthma ([facility]) At low risk for fall Bipolar affective, mixed (HCC) ([facility]) Change in blood pressure Cholecystitis 2009 Depressive disorder ([facility]) OMID (generalized anxiety disorder) ([facility]) History of hysterectomy 10/01/2021 Insomnia, persistent Migraines (CMS/HCC) Mild persistent asthma without complication (CMS/HCC) Morbid obesity with BMI of 40.0-44.9, adult ([facility]) PCOS (polycystic ovarian syndrome) Right otitis media Seizures ([facility]) HISTORY PAST MEDICAL HISTORY SOCIAL HISTORY Past Medical History: Diagnosis Date Acute exacerbation of asthma with allergic rhinitis (CMS/HCC) Allergies Asthma (CMS/HCC) At low risk for fall Bipolar affective, mixed (HCC) ([facility]) Change in blood pressure high and low Cholecystitis 2008 Chronic migraine without aura without status migrainosus, not intractable ([facility]) Depressive disorder ([facility]) OMID (generalized anxiety disorder) ([facility]) History of hysterectomy 10/01/2021 Insomnia, persistent Migraines (CMS/HCC) Mild persistent asthma without complication ([facility]) Morbid obesity with BMI of 40.0-44.9, adult ([facility]) PCOS (polycystic ovarian syndrome) Psychogenic nonepileptic seizure ([facility]) Right otitis media Seizures ([facility]) stressed induced Social History Tobacco Use [...] nursing note reviewed. Exam conducted with a shrink pit supervisor present. Vitals: Estimated body mass index is [...] of: Zay Blas DO documented in this encounterNOResearch Medical Center-Brookside [id number] Telephone encounter Note* Telephone Encounter - Claudia Lemon - 02/26/2024 1:05 PM EST Pt advised [facility] [id number] Miscellaneous Notes* Telephone Encounter - Claudia Lemon - 02/26/2024 1:05 PM EST Pt advised * Telephone Encounter - Mesha Zelaya LPN - 02/26/2024 11:25 AM EST UNABLE TP ACCEPT PT * Telephone Encounter - Claudia Lemon - 02/26/2024 11:12 AM EST Patients elizabeth harmon is gma and they are both pts of DB. She wondered if she could become a rn medical inpatient services here with us. And if not db she asked for doimnic. Pt does know we are not accepting new patients but asked if I could send this back - was told no on Monday. documented in this encounterParkland Health [id number] Telephone encounter Note* Telephone Encounter - Mesha Zelaya LPN - 02/26/2024 11:25 AM EST UNABLE TP ACCEPT PT [facility] [id number] Telephone encounter Note* Telephone Encounter - Claudia Lemon - 02/26/2024 11:12 AM EST Patients elizabeth harmon is gma and they are both pts of DB. She wondered if she could become a rn medical inpatient services here with us. And if not db she asked for dominic. Pt does know we are not accepting new patients but asked if I could send this back - was told no on Monday. [facility] Health [id number] Telephone encounter Note* Telephone Encounter - Jannette Castrejon, PRATIBHA - 02/22/2024 12:02 PM ESTSumderik: MARY Jordan Images from the original note were not included. Prior Authorization submitted via CoverMyMeds on 02/22/2024: Insurance: [place] Medicaid Medication: Zolmitriptan Chong Code: [id number] Awaiting Response [facility]01-02-2025 Miscellaneous Notes* Telephone Encounter - Jannette Castrejon RN - 02/22/2024 12:02 PM ESTSummary: MARY Zolmitriptan Images from the original note were not included. Prior Authorization submitted via CoverMyMeds on 02/22/2024: Insurance: [place] Medicaid Medication: Zolmitriptan Chong Code: [id number] Awaiting Response documented in this encounterLake County [facility] History of Present illness Narrative* Lamont Blair MD - 02/09/2024 12:19 PM ESTAssociated Problem(s): Mild persistent asthma with (acute) exacerbation ([facility]) Recent flare but not able to [...] and wo IV contrast documented in this encounterParkland Health [id number] Note* Addendum Note - Sagar Barth APRN.CNP - 01/30/2024 2:59 PM ESTAddended by: SAGAR BARTH on: 01/30/2024 02:59 PM Modules accepted: Orders [facility]12-10-2024 Telephone encounter Note* Telephone Encounter - Sagar Barth APRN.CNP - 01/30/2024 2:59 PM EST The following approved medication requests have been transmitted electronically. Requested Prescriptions Signed Prescriptions Disp Refills ZOLMitriptan (ZOMIG) 5 mg nasal spray 12 Each 5 Sig: Use 1 [place] in the nose as needed at onset of migraine headache. If symptoms persist or return, may repeat dose in other nostril after 2 hours. Maximum of 2 sprays per 24 hours Authorizing Provider: SAGAR BARTH APRN.CNP [facility]12-10-2024 Miscellaneous Notes* Addendum Note - Sagar Barth APRN.CNP - 01/30/2024 2:59 PM ESTAddended by: SAGAR BARTH on: 01/30/2024 02:59 PM Modules accepted: Orders * Telephone Encounter - Sagar Barth APRN.CNP - 01/30/2024 2:59 PM EST The following approved medication requests have been transmitted electronically. Requested Prescriptions Signed Prescriptions Disp Refills ZOLMitriptan (ZOMIG) 5 mg nasal spray 12 Each 5 Sig: Use 1 [place] in the nose as needed at onset [...] Each 5 11/10/2023 -- Sig: Use 1 [place] in the nose as needed at onset [...] to verify quantity on zolmitriptan. Callback number: [phone] documented in this encounterLake County [facility]12-10-2024 Telephone encounter Note * Telephone Encounter - Sagar Barth APRN.CNP - 01/30/2024 2:56 PM EST Dispense 12 pls. I rewrote the rx. Sagar Barth APRN.CNP [facility]12-09-2024 Telephone encounter Note* Telephone Encounter - Amy Shrestha MA - 01/29/2024 11:18 AM EST Per last Rx on 11/10/2023: Disp Refills Start End ZOLMitriptan (ZOMIG) 5 mg nasal spray 10 Each 5 11/10/2023 -- Sig: Use 1 [place] in the nose as needed at onset of migraine headache. If symptoms persist or return, may repeat dose in other nostril after 2 hours. Maximum of 2 sprays per 24 hours I called the pharmacy and hey need to know if Provider would like to dispense #6 or #12 cartridges.They do not come in 10. Please advise. Thank you [facility]12-09-2024 Telephone encounter Note* Telephone Encounter - Kelsey Patel - 01/29/2024 10:51 AM EST Name of Caller: nicky Relationship to patient: pharmacy Last visit in this department: 09/19/2023 Reason for Call: Other : need to verify quantity on zolmitriptan. Callback number: [phone] [facility]12-03-2024 History of Present illness Narrative* Lamont Blair MD - 01/23/2024 1:55 PM ESTAssociated Problem(s): SOB (shortness of breath) on exertion Severe symptom and check CXR. Use albuterol PRN and start prednisone. * Lamont Blair MD - 01/23/2024 1:55 PM ESTAssociated Problem(s): Mild persistent asthma with (acute) exacerbation ([facility]) Continued symptoms and treat with prednisone [...] panel CBC and differential documented in this encounterParkland Health [id number] NoteHNO ID: [id number] Author: GETACHEW DOMINGO RN Service: ? Author Type: Registered Nurse Type: Progress Notes Filed: 01/22/2024 15:58 Note Text: Pt in for third day of infusion. Pt rated headache 9/10. Pt has severe nausea and moderate dizziness. Educated pt on medications to be administered. Pt agreed to proceed as ordered. Assignment Clerk yes Patient reports she stopped vomiting but nausea is still pretty severe. She continues to retain fluids, hands and lower extremities appear puffy, non pitting edema. Mohamed Hamdan, MANUFACTURING TECH aware, patient seen. Patient referred to pcp [...] room via wheelchair to her in the lobby.[facility]12[facility]02[facility] History of Present illness Narrative* Getachew Domingo RN - 01/22/2024 2:18 PM EST Pt in for third day of infusion. Pt rated headache 9/10. Pt has severe nausea and moderate dizziness. Educated pt on medications to be administered. Pt agreed to proceed as ordered. Assignment Clerk yes Patient reports she stopped vomiting but [...] her in the lobby. documented in this encounterLake County [facility]12-02-2024 NoteHNO ID: [id number] Author: RAIZA SHIELDS APRN.MANUFACTURING TECH Service: ? Author Type: Nurse Practitioner Type: [...] Lymph 1.00 - 4.00 k/uL 0.84 Abs Lake <0.87 k/uL 0.06 Abs Eosin <0.46 k/uL [...] ZOLMitriptan (ZOMIG) 5 mg nasal sprayUse 1 [place] in the nose as needed at onset [...] and clear, coherent, and relevant. 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 Attention span and concentration are good. Cranial Nerves: VII-face is symmetric without evidence of weakness. VIII-hearing intact. Assessment: (G43.711) Chronic migraine without aura, with intractable migraine, so stated, with status migrainosus (primary encounter diagnosis) Plan: April Nciholson is a 28 year old year old [...] service, which included p (more content not included)...[facility]12-02-2024 History of Present illness Narrative* Raiza Shields APRN.[facility] - 01/22/2024 1:30 PM EST Images [...] Lymph 1.00 - 4.00 k/uL 0.84 Abs [place] <0.87 k/uL 0.06 Abs Eosin <0.46 k/uL [...] ZOLMitriptan (ZOMIG) 5 mg nasal spray^Use 1 [place] in the nose as needed at onset [...] articulation, and clear,coherent, and relevant. Short and assisted memory, cognition and general fund of knowledge [...] which included preparing to see the patient, [id number] patient care, completing clinical documentation, and obtaining and/or reviewing separately obtained history. Raiza Shields APRN.FADY Headache Section [facility] January 22, 2024 documented in this encounterLake County [facility]11-29-2024 NoteHNO ID: [id number] Author: GETACHEW DOMINGO RN Service: ? Author Type: Registered Nurse Type: Progress Notes Filed: 01/19/2024 11:55 Note Text: Pt in for second day of infusion. Pt rated headache 10/10. Pt has severe nausea and severe dizziness. Educated pt on medications to be administered. Pt agreed to proceed as ordered. Assignment Clerk: yes Patient took Valium 10 mg tabl [...] Pt d/c via wheelchair to her in [facility]. Instructed patient and to take caution with ambulating. Patient is feeling sedated.[facility]11-29-2024 History of Present illness Narrative* Geatchew Domingo RN - 01/19/2024 9:37 AM EST Pt in for second day of infusion. Pt rated headache 10/10. Pt has severe nausea and severe dizziness. Educated pt on medications to be administered. Pt agreed to proceed as ordered. Assignment Clerk: yes Patient took Valium 10 mg tabl [...] Pt d/c via wheelchair to her in [facility]. Instructed patient and to take caution with ambulating. Patient is feeling sedated. documented in this encounterLake [facility]-27-2024 NoteHNO ID: [id number] Author: CLAUDIA MAYNARD RN Service: ? Author [...] PRN Zofran given for nausea. 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 documented in this encounterLake County [facility]11-27-2024 NoteHNO ID: [id number] Author: ОЛЬГА SHABAZZ APRN.MANUFACTURING TECH Service: ? Author Type: Nurse Practitioner Type: Progress Notes Filed: 01/17/2024 07:59 Note Text: Headache Center - Virtual Visit Infusion Triage This visit was conducted as a virtual visit, with patient's permission, via ZOOM. It required patient-provider interaction for the medical decision making as documented below. Patient stated name and Patient location [place], [place] I have communicated my name and active licensure. The patient's identity and physical location were verified at the time of this visit. Either the patient or their legal appeals representative has been informed of the risks [...] Cobb, New health events/diagnosis since last visit (ID/stroke/DM/HTN/etc): [...] Lymph 1.00 - 4.00 k/uL 0.84 Abs Lake <0.87 k/uL 0.06 Abs Eosin <0.46 k/uL <0.03 Abs Baso <0.11 k/uL <0.03 NRBC /100 WBC 0.0 Analgesic Ketorolac (Toradol) Anti-Convulsant Lamotrigine (Lamictal) Topiramate (Topamax, Trokendi XL, Qudexy) Anti-Depressant and Antipsychotic Amitriptyline (Elavil) [place] (Eskalith, Lithobid) Nortriptyline (Pamelor, Aventyl) Anti-Migraine Dihydroergotamine [...] sprayUse 1 Sp (more content not included)... [facility]11-26-2024 Telephone encounter Note* Telephone Encounter - Michelle Givens RN - 01/16/2024 9:25 AM EST PAPO: 12/05/2023 with Ольга Shabazz APRN.MANUFACTURING TECH [facility]11-26-2024 Miscellaneous Notes* Telephone Encounter - Michelle Givens RN - 01/16/2024 9:25 AM EST PAPO: 12/05/2023 with Ольга Shabazz APRN.MANUFACTURING TECH documented in this encounterLake County [facility]11-19-2024 History of Present illness Narrative* Lamont Blair [...] and follow with specialists. Mild persistent asthma ([facility]/HCC) - Primary Class 3 severe obesity due to excess calories without serious comorbidity with body mass index (BMI) of 50.0 to 59.9 in adult ([facility]) Patient overweight and difficult time losing [...] (Ultram) 50 MG tablet documented in this encounterParkland Health [id number] NoteHNO ID: [id number] Author: LENNIE PALACIOS RN Service: ? Author [...] after Benadryl given. 1345 Patient discharged to motor coach bus driver in wheelchair , patient sleepy but verbalizing and ambulating wheelchair used as a precaution Patient able to walk to wheelchair without difficulty.[facility]11-15-2024 History of Present illness Narrative* Lennie [...] after Benadryl given. 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 documented in this encounterLake County [facility]10-15-2024 History of Present illness Narrative* Ольга Shabazz APRN.MANUFACTURING TECH - 12/05/2023 7:00 AM EDT Images from the original note were not included. Headache Center - Follow up Virtual Visit Last OV: 08/23/23 Sona Barth APRN Accompanied by: Self This visit was conducted as a virtual visit, with patient's permission, via ZOOM. It required patient-provider interaction for the medical decision making as documented below. Patient stated name and Patient location [place], [place] I have communicated my name and active licensure. The patient's identity and physical location wereverified at the time of this visit. Either the patient or their legal appeals representative has been informed of the risks [...] (ZOMIG) 5 mg nasal spray Use 1 [place] in the nose as needed at onset [...] these with the patient: yes Ольга Shabazz APRN.MANUFACTURING TECH Studies to Review: No New Health Issues: [...] XL, Qudexy) Anti-Depressant and Antipsychotic Amitriptyline (Elavil) [place] (Eskalith, Lithobid) Nortriptyline (Pamelor, Aventyl) Blood Pressure [...] which included preparing to see the patient, pxqm-fe-ntjo patient care, completing clinical documentation, and counseling and educating the patient/family/caregiver. Ольга Shabazz APRN.MANUFACTURING TECH documented in this encounterLake County [facility]09-25-2024 History of Present illness Narrative* Lamont Blair [...] 800-160 MG per tablet documented in this encounterParkland Health CenterYloxfkzhsy09-69-9812 Telephone encounter Note* Telephone Encounter - Sagar Barth APRN.CNP - 11/10/2023 2:12 PM EDT The following approved medication requests have been transmitted electronically. Requested Prescriptions Signed Prescriptions Disp Refills ZOLMitriptan (ZOMIG) 5 mg nasal spray 10 Each 5 Sig: Use 1 [place] in the nose as needed at onset [...] spasm (migraine). Authorizing Provider: SAGAR BARTH APRN.CNP [facility]09-20-2024 Miscellaneous Notes* Telephone Encounter - Sagar Barth APRN.CNP - 11/10/2023 2:12 PM EDT The following approved medication requests have been transmitted electronically. Requested Prescriptions Signed Prescriptions Disp Refills ZOLMitriptan (ZOMIG) 5 mg nasal spray 10 Each 5 Sig: Use 1 [place] in the nose as needed at onset [...] spray 10 Each 5 Sig: Use 1 [place] in the nose as needed at onset [...] for muscle spasm (migraine). documented in this encounterLake County Memorial Hospital [facility]09-20-2024 Telephone encounter Note * Telephone Encounter - Sagar Barth APRN.CNP - 11/10/2023 2:11 PM EDT The following approved medication requests have been transmitted electronically. Requested Prescriptions Signed Prescriptions Disp Refills promethazine (PHENERGAN) 25 mg tablet 90 tablet 5 Sig: Take 1 tablet by mouth every 4 hours as needed. FOR NAUSEA Authorizing Provider: SAGAR BARTH APRN.CNP [facility]09-20-2024 Miscellaneous Notes* Telephone Encounter - Sagar Barth [...] [facility] documented in this encounterLake County [facility]09-20-2024 Telephone encounter Note * Telephone Encounter - [...] NAUSEA Pharmacy Name: [facility]09-20-2024 Telephone encounter Note* Telephone Encounter - Michelle Givens RN - 11/10/2023 1:26 PM EDT patient requesting refill via [employer]. Last OV: 09/19/2023 Future OV: None scheduled Last prescribed: 4 months ago (07/10/2023) by Sagar Barth APRN.MANUFACTURING TECH Requested Prescriptions Pending Prescriptions Disp Refills ZOLMitriptan (ZOMIG) 5 mg nasal spray 10 Each 5 Sig: Use 1 [place] in the nose as needed at onset [...] day as needed for muscle spasm (migraine). [facility]08-23-2024 History of Present illness Narrative* Getachew Domingo RN - 10/13/2023 12:44 PM EDT Pt in for Vyepti infusion. Pt rated headache 8 /10. Pt has severe nausea and mild dizziness. Educated pt on medications to be administered. Pt agreed to proceed as ordered. Assignment Clerk: yes Zofran 8 mg IVP given for [...] Patient d/c via wheelchair.. documented in this encounterLake County Memorial [facility]08-20-2024 History of Present illness Narrative* Lamont Blair MD - 10/10/2023 10:04 AM EDTAssociated Problem(s): Mild persistent asthma with (acute) exacerbation ([facility]) Continued symptoms and treat with prednisone [...] Visit Mild persistent asthma with (acute) exacerbation ([facility]) Continued symptoms and treat with prednisone [...] 800-160 MG per tablet documented in this encounterParkland Health [id number] History of Present illness Narrative* Sagar Barth APRN.MANUFACTURING TECH - 09/19/2023 2:30 PM EDT Images from [...] XL, Qudexy) Anti-Depressant and Antipsychotic Amitriptyline (Elavil) [place] (Eskalith, Lithobid) Nortriptyline (Pamelor, Aventyl) Anti-Migraine Dihydroergotamine [...] ZOLMitriptan (ZOMIG) 5 mg nasal spray^Use 1 [place] in the nose as needed at onset [...] these with the patient: yes Sagar Barth APRN.MANUFACTURING TECH HEADACHE SCORES: 03/22/2023 07/10/2023 09/19/2023 Headache Questions [...] spontaneous and fluent without dysarthria. 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 Sagar Barth APRN.[facility] Headache Section [facility] September 19, 2023 documented in this encounterLake County [facility]06-28-2024 Instructions* Patient Instructions* Curtis Lepe PA-C - 08/18/2023 2:39 PM EDT You received a greater occipital nerve block (GONB) today You may feel sore tomorrow at the site of the injection. You may use heat or ice for discomfort andgentle stretching. This should resolve in 24-36 hours. Greater Occipital Nerve Block (GONB) Article in [place] [employer] Journal By: Molina Barraza MD [...] give it at least one more try. https://americanheadachesociety.org/wp-content/uploads//Dxrkllbff-Rbxie-A locks_Jun-2009.pdf documented in this encounterLake County [facility]06-28-2024 History of Present illness Narrative* Curtis Lepe [...] 1 month Curtis Lepe PA-C Headache Section [facility] August 18, 2023 documented in this encounterLake County [facility]06-26-2024 Telephone encounter Note * Telephone Encounter - Michelle Givens RN - 08/16/2023 9:18 AM EDT Forwarded to provider for review. PAPO: 07/10/2023 Future OV: 09/19/2023 Encounter from [facility] today 08/16/2023 [facility]06-26-2024 Miscellaneous Notes* Telephone Encounter - Michelle Givens RN - 08/16/2023 9:18 AM EDT Forwarded to provider for review. PAPO: 07/10/2023 Future OV: 09/19/2023 Encounter from [facility] today 08/16/2023 documented in this encounterLake County [facility]05-20-2024 History of Present illness Narrative* Sagar Barth APRN.MANUFACTURING TECH - 07/10/2023 11:30 AM EDT Images from [...] visit. Either the patient or their legal appeals representative has been informed of the risks [...] XL, Qudexy) Anti-Depressant and Antipsychotic Amitriptyline (Elavil) [place] (Eskalith, Lithobid) Nortriptyline (Pamelor, Aventyl) Anti-Migraine Dihydroergotamine [...] ZOLMitriptan (ZOMIG) 5 mg nasal spray^Use 1 [place] in the nose as needed at onset [...] these with the patient: yes Sagar Barth APRN.MANUFACTURING TECH HEADACHE SCORES: 12/12/2022 03/22/2023 07/10/2023 Headache Questions [...] Lymph 1.00 - 4.00 k/uL 0.84 Abs Lake <0.87 k/uL 0.06 Abs Eosin <0.46 k/uL [...] spontaneous and fluent without dysarthria. 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 memory, cognition and general fund of knowledgeare [...] XL, Qudexy) Anti-Depressant and Antipsychotic Amitriptyline (Elavil) [place] (Eskalith, Lithobid) Nortriptyline (Pamelor, Aventyl) Blood Pressure [...] (ZOMIG) 5 mg nasal spray Use 1 [place] in the nose as needed at onset [...] Service: Virtual Visit 40 minutes Sagar Barth APRN.MANUFACTURING TECH Headache Section [facility] July 10, 2023 documented in this encounterLake County [facility]05-06-2024 Telephone encounter Note * Telephone Encounter - Kings Saez RN - 06/26/2023 3:00 PM EDT Called Pt to clarify ER visit. States she was seen this morning at [facility] and given a Compazine and steroid shot States she cannot remember the name of steroid that was given. Informationpassed on to care team. Marc TOMAS RN Clinical Sql Tech [facility] Headache [facility]05-06-2024 Miscellaneous Notes* Telephone Encounter - Kings Saez RN - 06/26/2023 3:00 PM EDT Called Pt to clarify ER visit. States she was seen this morning at [facility] and given a Compazine and steroid shot States she cannot remember the name of steroid that was given. Informationpassed on to care team. Marc TOMAS RN Clinical Sql Tech [facility] Neuro Headache [facility] documented in this encounterLake County [facility]05-06-2024 Telephone encounter Note * Telephone Encounter - Michelle Givens RN - 06/26/2023 11:42 AM EDT Forwarded to provider for review. PAPO: 04/14/2023 with Suzan Ivey APRN.MANUFACTURING TECH Future OV: None scheduled [facility]05-06-2024 Miscellaneous Notes* Telephone Encounter - Michelle Givens RN - 06/26/2023 11:42 AM EDT Forwarded to provider for review. PAPO: 04/14/2023 with Suzan Ivey APRN.MANUFACTURING TECH Future OV: None scheduled * Telephone Encounter - Michelle Givens RN - 06/26/2023 10:01 AM EDT MyChart message sent to patient to gain more information in regards to patient's migraine. documented in this encounterLake County [facility]05-06-2024 Telephone encounter Note * Telephone Encounter - Michelle Givens RN - 06/26/2023 10:01 AM EDT MyChart message sent to patient to gain more information in regards to patient's migraine. [facility]02-23-2024 Instructions* Patient Instructions* Suzan Ievy APRN.MANUFACTURING TECH - 04/14/2023 10:49 AM EST Follow up/ [...] medication refilled without delays. 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 Suzan Ivey APRN.MANUFACTURING TECH Headache Section [facility] documented in this encounterLake County [facility]02-23-2024 History of Present illness Narrative* Vielka Nair RN - 04/14/2023 8:19 AM EST Pt in for 3rd day of infusion. Pt rated headache 6/10. Pt has severe nausea and moderate dizziness.Educated pt on medications to be administered. Pt agreed to proceed as ordered. Patient has motor coach bus driver today. @0915: Patient tearful and c/o PIV site burning and very painful. No infiltration or redness of site noted, Ice-pack placed over PIV site. After a few minutes pt reported the ice-pack did not help and wanted PIV to be removed. PIV site removed. Patient remained very anxious and tearful, and requesting if anything else can be given for anxiety. [facility] BOOKKEEPER RECEPTIONIST notified. New PIV site started, 2nd doseof Benadryl given for anxiety. 2nd line: Compazine given for severe nausea. Per [facility] BOOKKEEPER RECEPTIONIST to hold Periactin today as the two doses of Benadryl and Compazine can cause drowsiness. Pts infusion complete, tolerated infusion. Headache 4/10. Pt stated no nausea and moderate dizziness. PIV site removed. Pt discharged from txt room at 1124 via wheelchair to ride in [place]. documented in this encounterLake County [facility]02-22-2024 History of Present illness Narrative* Getachew Domingo [...] She is working with a psychiatrist in [place] . Voiced stress isher biggest trigger for headaches. 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 I mentioned to patient our reboot program . Patient very interested to learn about it. Message sendto our conversion man and Rhina Lim to set up patient for evaluation. 1020 Patient sleeping on and off. Nausea subsiding. Patient declined Zofran. Stated Zofran ineffective. 1050 Infusion complete. Patient slept on and off. Nausea resolved. PINEDA 6/10. Patient verbal , appears sedated . D/c via wheel chair to her in [place]. documented in this encounterLake County [facility]02-22-2024 Miscellaneous Notes* Telephone Encounter - Getachew Domingo RN - 04/13/2023 9:28 AM EST Patient is currently receiving infusions for headache. She is interested in learning about reboot program. Please schedule for evaluation. 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 Suzan Ivey APRN.FADY Headache Section [facility] documented in this encounterLake County [facility]02-21-2024 History of Present illness Narrative* Suzan Brito RN - 04/12/2023 11:54 AM EST 1105 Patient in for first day of IV infusions. Patient rated headache 8/10. Patient stated severe nausea and mild dizziness. Patient educated on medications to be administered. Patient verbalized understanding and agreed to proceed with infusions. Patient requested the PRN IV Benadryl vs oral periactin for sedation. Rhina Ivey BOOKKEEPER RECEPTIONIST updated and agreeable. PIV started on 3rd [...] dizziness. Pt discharged from treatment room with motor coach bus driver via wheelchair due to effects from oral medications. documented in this encounterLake County Memorial Hospital [facility]02-21-2024 Instructions* Patient Instructions* Suzan Ivey APRN.CNP - [...] too muchlight. These can be obtained at [employer] or [employer]: see list below. 2. Limit use of acute treatments (lysy-olu-egrnvvp medications, triptans, etc.) to no more than [...] and quiet environment. Relax and reduce stress. Pzjtaqr4Merjd is a free juan a that can instruct you on some simple relaxtionand breathing techniques. Http://[employer] is a free website that provides teaching [...] ensuing treatment plans will be released via [employer] and discussedduring your follow-up appointment. Follow-up appointments are primarily provided by the Nurse Practitioners and Physician s Assistants in order to provide timely, accessible care. [employer]: Please ask the schedulers to give you an activation code. The main way of communication isby [employer] rather than phone lines, so if you have not signed up, please do so. [employer] is also theway that you can review your labs and testing. We are not able to contact everyone to tell them results are normal. If you do not hear back from us regarding testing you have had, it should be considered normal or within normal range. If you have any questions about the results, you are free to message us. [employer] is meant for simple questions regarding medications, possible side effects, or other simplestraight forward questions in limited sentences, rather than multiple paragraphs of discussion. [employer] is not meant for, or efficient for these complex questions, extensive questions, extensive medication adjustments, complex new symptoms or concerns. These issues beyond simple questions require afollow up visit with myself, one of our physician assistants, nurse practitioners, or a Virtual Visit via computer or smart phone, as detailed further down. Please contact [employer] if you are having issues with [employer] or logging in to your virtual visit appointment. You can reach them at [phone] Refills: Please pay attention to when your [...] pepperoni, Pickled reynoso Pods of broad carmona (Cook Islander beans, Moldovan pea pods, Uzbek (jc) beans, frazier and navy beans Ripe [...] that convincingly provoke headaches. documented in this encounterLake County [facility]02-12-2024 Miscellaneous Notes* Telephone Encounter - Angely Cotton RN - 04/03/2023 12:43 PM EST Ambulatory Pharmacy Prior Authorization Note Provider Intervention Required?: No- Pharmacy completed on your behalf. Rx Plan: Medicaid [facility] ([facility]) Drug: Aimovig 70MG/ML auto-injectors Cover My Meds Chong: [id number] Determination: Approved Prior Authorization/Case #: n/a Prior [...] refills. Prescriptions will now be processed through [facility] for determination of next steps. For questions relating to this submission, please contact [facility] at [phone] * Telephone Encounter - Angely Cotton RN - 03/27/2023 1:05 PM EST [facility] received prescription(s) for Aimovig 70MG/ML auto-injectors . Benefits investigation was conducted, indicating that a prior authorization is required. PA was initiated and pending review through [employer]. All pertinent clinical information was submitted to insurance. CMM Chong: [id number] Ordering Provider: Sagar Barth APRN.CNP Murtaugh, Alisha, RN [facility] P: , F: documented in this encounterLake County [facility]10-24-2023 Miscellaneous Notes* Telephone Encounter - Mendoza Dooley - 12/13/2022 2:24 PM EDT Images from the original note were not included. Called patient to schedule for 3 days of Non DHE IV infusions. She started she was currently driving and would call back to schedule Sagar Barth APRN.MANUFACTURING TECH P Headache Infusion Scheduling Pool; P C21 Botox Pool Pls schedule for infusions, and also her next botox treatment - thank you. KG documented in this encounterLake County [facility]10-24-2023 Miscellaneous Notes* Telephone Encounter - Jannette Castrejon RN - 12/13/2022 10:36 AM EDT PA submitted through CoverMyMeds for Orphenadrine Citrate ER 100mg. Chong Code: [id number] documented in this encounterLake [facility] Miscellaneous Notes* Telephone Encounter - Wellington Reilly [...] Name: Emory Paris Tommie documented in this encounterLake County [facility]09-22-2023 History of Present illness Narrative* Suzan Ivey [...] proceed with infusions. 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 She would like PRN benadryl for [...] with it. Message sent to Suzan Ivey BOOKKEEPER RECEPTIONIST to update. Benadryl hypersensitivity released and administered. Pt also very nauseated. PRN zofran administered. 1050: Pt fell back asleep. Woke pt up and she she stated relief from all itching. Denies any other symptoms/side effects at this time. Pts infusions complete. Pt rated headache 7/10. Pt stated mild nausea and denied dizziness. 1055: Suzan Ivey BOOKKEEPER RECEPTIONIST in txt room to see patient. 1105: [...] Suzan Ivey NP notified. documented in this encounterLake County [facility]09-21-2023 History of Present illness Narrative* Ольга Shabazz, BIKE ASSEMBLER.MANUFACTURING TECH - 11/10/2022 1:30 PM EDT Images from [...] visit. Either the patient or their legal appeals representative has been informed of the risks [...] Lymph 1.00 - 4.00 k/uL 0.84 (L) Lake% % 0.7 Abs Lake <0.87 k/uL 0.06 Eosin% % 0.1 Abs [...] 2.7 TSH 0.270 - 4.200 mIU/L 0.537 [place] 0.6 - 1.2 mmol/L 0.1 (L) Analgesic Ketorolac (Toradol) Anti-Convulsant Lamotrigine (Lamictal) Topiramate (Topamax, Trokendi XL, Qudexy) Anti-Depressant and Antipsychotic Amitriptyline (Elavil) [place] (Eskalith, Lithobid) Nortriptyline (Pamelor, Aventyl) Anti-Migraine Dihydroergotamine [...] ZOLMitriptan (ZOMIG) 5 mg nasal spray^Use 1 [place] in the nose as needed at onset [...] these with the patient: yes Ольга Shabazz APRN.MANUFACTURING TECH HEADACHE SCORES: Headache Questions 06/24/2022 08/31/2022 09/12/2022 [...] in rate, volume and articulation. Short and assisted memory, cognition and general fund of knowledge [...] Service: Virtual Visit 25 minutes Ольга Shabazz APRN.MANUFACTURING TECH Headache Section [facility] November 10, 2022 documented in this encounterLake County [facility]09-21-2023 Miscellaneous Notes* Telephone Encounter - Mendoza Dooley [...] get infusions scheduled. Number to return call [phone] Okay to leave a message ? Yes [facility] Next office visit Not scheduled. Thank you calling [facility] [place]. You will receive a return call within 48hours ( or 2 business days if close to the weekend). If you feel that this is an urgent issue and needs immediate attention, it is recommended that you contact your primary care provider office or proceed to your nearest Urgent Care Center of Emergency Room ED for evaluation/treatment. documented in this encounterLake County [facility]08-17-2023 Miscellaneous Notes* Telephone Encounter - Angely Cotton RN - 10/06/2022 2:53 PM EDT Ambulatory Pharmacy Prior Authorization Note Provider Intervention Required?: No- Pharmacy completed on your behalf. Rx Plan: Medicaid [facility] ([facility]) Drug: Zomig 5MG nasal spray Cover My Meds Chong: [id number] Determination: Approved Prior Authorization/Case #: n/a Prior [...] refills. Prescriptions will now be processed through [facility] for determination of next steps. For questions relating to this submission, please contact [facility] at [phone] * Telephone Encounter - Angely Cotton RN - 09/29/2022 11:54 AM EDT [facility] received prescription(s) for Zomig 5MG nasal spray . Benefits investigation was conducted, indicating that a prior authorization is required. PA was initiated and pending review through [employer]. All pertinent clinical information was submitted to insurance. CMM Chong: [id number] Ordering Provider: Sagar Barth APRN.Angely Schaefer RN [facility] P: , F: documented in this encounterLake County [facility]08-09-2023 Miscellaneous Notes* Telephone Encounter - Vasyl Howarden - 09/28/2022 8:43 AM EDT Patient last seen on 09/12/22. documented in this encounterLake County [facility]07-12-2023 History of Present illness Narrative* Sagar Barth APRN.CNP - 08/31/2022 1:30 PM EDT Headache Center - Follow up Virtual Visit During this COVID-19 pandemic, patient's headache clinic evaluation was scheduled as a virtual visit using the following platform Zoom - patient currently located in [place] April Nicholson was identified by name and [...] visit. Either the patient or their legal appeals representative has been informed of the risks [...] She has been seeing one of the BOOKKEEPER RECEPTIONIST's. It sounds like the plan is Emgality and Zomig nasal spray but it has been 2 months and she still hasn't heard about whether it has been approved. Has infusions which helped some. [place] keppra worked the best. Has an appt with BOOKKEEPER RECEPTIONIST in a week. I willgive jeremy today [...] XL, Qudexy) Anti-Depressant and Antipsychotic Amitriptyline (Elavil) [place] (Eskalith, Lithobid) Nortriptyline (Pamelor, Aventyl) Anti-Migraine Naratriptan [...] (ZOMIG) 5 mg nasal spray Use 1 [place] in the nose as needed. SPRAY IN [...] these with the patient: yes Sagar Barth APRN.MANUFACTURING TECH HEADACHE SCORES: Headache Questions 06/24/2022 08/31/2022 ER [...] spontaneous and fluent without dysarthria. Short and assisted memory, cognition and general fund of knowledgeare [...] XL, Qudexy) Anti-Depressant and Antipsychotic Amitriptyline (Elavil) [place] (Eskalith, Lithobid) Nortriptyline (Pamelor, Aventyl) Blood Pressure [...] 30 minutes Sagar Barth APRN.CNP Headache Section [facility] August 31, 2022 documented in this encounterLake County Memorial [facility]06-22-2023 Miscellaneous Notes* Telephone Encounter - Mendoza Dooley - 08/11/2022 8:25 AM EDT Patient just completed 3 days of Infusions 07/27, 07/28, and 07/29. She is also scheduled for a follow upon 08/16. Would you like me to try to move her appt sooner? * Telephone Encounter - Bonnie Howard - 08/09/2022 4:54 PM EDT Patient last seen on 08/08/22. documented in this encounterLake County Memorial Hospital - West06-21-2023 Miscellaneous Notes* Telephone Encounter - Vida Vazquez RN - 08/10/2022 10:01 AM EDT Message left on identified voice mail box requesting name of medication patient is attempting to pickle cutter. Vida Vazquez RN August 10, 2022 10:01 AM documented in this encounterLake County Memorial Hospital [facility]06-19-2023 History of Present illness Narrative* Jesse Borrego MD - 08/08/2022 3:08 PM EDT VV I have communicated my name and active licensure. The patient's identity and physical location wereverified at the time of this visit. Either the patient or their legal appeals representative has been informed of the risks and benefits of -- and alternatives to -- treatment through a remote evaluation andconsents to proceed with the evaluation remotely. Pt that I saw once 9 or so months ago. At the time, did not need preventative med. Since, the PINEDA's have worsened. She has been seeing one of the BOOKKEEPER RECEPTIONIST's. It sounds like the plan is Emgality and Zomig nasal spray but it has been 2 months and she still hasn't heard about whether it has been approved. Has infusions which helped some. [place] jeremy worked the best. Has an appt with BOOKKEEPER RECEPTIONIST in a week. I willgive jeremy today until she can find out where emgality and zomig stand. Answered all questions. Jesse Borrego MD Time spent: 18 mins (10 mins direct pt contact) documented in this encounterLake County Memorial Hospital [facility] West06-08-2023 History of Present illness Narrative* Leonie Whitaker RN - 07/28/2022 7:40 AM EDT Patient in for day 2 of infusion therapy. Patient rated headache pain 10 out of 10. Patient has severe nausea and moderate dizziness. Education was provided for the patient on medications and treatment plan for the day. The patient verbalized understanding and agreed to the infusion. 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 IV removed and patient discharged from infusion room documented in this encounterLake County Memorial Hospital [facility] West05-08-2023 Miscellaneous Notes* Telephone Encounter - Mendoza Dooley - 06/27/2022 2:58 PM EDT Images from the original note were not included. Spoke to patient about scheduling infusions. Patient would like to callback once she can figure outtransportation. Sagar Barth APRN.CNP P Headache Infusion Scheduling Pool Please sched for infusions - therapy plan placed. Sagar Barth APRN.CNP documented in this encounterLake County Memorial Hospital [facility] West04-25-2023 Miscellaneous Notes* Telephone Encounter - Vida Vazquez [...] 14, 2022 1:29 PM documented in this encounterLake County Memorial Hospital - West04-25-2023 Miscellaneous Notes* Telephone Encounter - Corina Thorpe [...] admitted to the ER couple times in [facility] and all her medication is not working. Patient scheduled to see Dr. Borrego on 07/25 and she's on a wait list for soonerappts. Number to return call [phone] Corina Thorpe * Telephone Encounter - Bettina Cedillo - 06/14/2022 9:37 AM EDT I called and spoke to Margaret and scheduled her follow up for the first available virtual visit in July and placed it on the wait list for a sooner appointment. documented in this encounterLake County Memorial [facility] West11-01-2022 Miscellaneous Notes* Telephone Encounter - Vida Vazquez [...] 21, 2021 9:01 AM documented in this encounterLake County Memorial Hospital [facility] West10-14-2022 History of Present illness Narrative* Jesse Borrego MD - 12/03/2021 10:12 AM EDT Dictation completed. Of note, she feels her neck hurts all of the time but I do not see that on the exam today. Jesse Borrego MD documented in this encounterLake County Memorial Hospital [facility]09-21-2022 History of Present illness Narrative* Nelly Saldaña PA-C - 11/10/2021 1:30 PM EDT [facility] [place] [facility] VIRTUAL VISIT Patient Name: Margaret [...] worse and worse over time,Recent hospital admission ([facility]) was a week ago, she had total [...] memory issues/vision issues. 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 Overnight, patient [...] PA-C November 10, 2021 documented in this encounterLake County Memorial Hospital [facility]09-20-2022 Miscellaneous Notes* Telephone Encounter - Ines Hearn RN - 11/09/2021 7:32 AM EDT Lvv 10/29/2021 Dr Dolan PLAN: -Patient agreed to have 3 days home Video EEG (stratus) to confirm the diagnosis of PNES (patient needs to be at home with her 4 kids all have special needs). -Discussed treatment of PNES with specialized CBT at [facility] psychology program. -No driving Patient agreed Consult headache center for headache. Continue to follow up local psychiatrist/conseling for mood disorder, anxiety and PTSD. documented in this encounterLake County Memorial [facility]09-19-2022 Miscellaneous Notes* Telephone Encounter - Nelly Saldaña [...] order? Thank you, Chucky documented in this encounterLake County Memorial Hospital [facility] West09-09-2022 History of Present illness Narrative* Tyrone Dolan MD, PhD - 10/29/2021 10:54 AM EDT [facility] [place] [facility] Patient Name: Margaret Nicholson Date [...] worse and worse over time,Recent hospital admission ([facility]) was a week ago, she had total [...] memory issues/vision issues. 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 Overnight, patient [...] treatment of PNES with specialized CBT at [facility] psychology program. -No driving Patient agreed Consult headache center for headache. Continue to follow up local psychiatrist/conseling for mood disorder, anxiety and PTSD. I spent 58 minutes including face to face on the date of the service, preparing to see the patient,reviewing medical records, completing clinical documentation, counseling, and ordering medications,tests, or procedures. Tyrone Dolan MD PhD Staff, Epilepsy [facility] [place], [place] Primary Care Physician: Abdifatah Lynn (Historical) Jose Antonio (Inactive) No address on file Referring Physician: SELF Ms. Margaret Nicholson [address] [place] [address] documented in this encounterLake County Memorial Hospital [facility] West09-06-2022 History of Present illness Narrative* Geri Madera APRN.MANUFACTURING TECH - 10/26/2021 3:24 PM EDT [facility] Review of Records Patient: Margaret Nicholson Address: [address] [place] [address] Impression: Review of records for Margaret Nicholson, [...] cholecystectomy, caesarean , tubal ligation PRIOR EVALUATIONS: [place] [address] Video EEG ([facility], 10/19/2021-10/20/2021): Normal continuous video-EEG. The events that were captured did not correlate with epileptic seizures. No epileptiform discharges were identified. MRI brain wo/w contrast ([facility], 10/19/2021): Unremarkable MRI of the brain JUAN A Recommendations: - Admit to EMU for VEEG monitoring, diagnostic evaluation Location: [facility] [place] - Visit with epileptologist prior to admission - Additional testing to be considered by epilepsy clinicians Signed: Geri Madera APRN.MANUFACTURING TECH October 26, [address] Storey for review and recommendations. MD Recommendations (as discussed with Dr. Storey): - Please proceed with the above plan. Please route this encounter to the EMU Scheduling Pool ( P EMU ) or PMU Scheduling Pool ( P PMU ) through LOS & Follow up PHASE 1.0 AND 1.5 ORDER SYNOPSIS Patient: Margaret Nicholson ([id number]) Best contact number: [phone] Insurance: No coverage found. Scheduling Team: Please call for adult patients: Mendoza Torres ([phone]) Chucky Cantor ([phone]) Fabiola Sharpe([phone]) Nikkie Mahajan([phone]) Please call for pediatric patients: Chucky [place] ([phone]) Fabiola Sharpe ([phone]) Mendoza Torres ([phone]) Nikkie Mahajan([phone]) Appointments and Tests PRE-PROCEDURE & PRE-OPERATIVE COVID [...] VNS off/on office visits. documented in this encounterLake County Memorial Hospital [facility] West08-31-2022 Hospital Discharge instructions* Discharge Instructions* UMANG Garcia [...] Care Everywhere. * Non-Epileptic Seizure: General Info (Cook Islander) documented in this encounterBON Dovetail Work Phone: [phone]) 613-613508-31-2022 History of Present illness Narrative* UMANG Garcia [...] en route to outlying ED. On arrival psychiatric ED, GCS 12. Per documentation, patient had at least 13 seizure like episodes, lasting 10-60 seconds, described as grand mal. She was given 10mg Valium IV, 1g Keppra IV, 720mg Phenobarbital IV. CT Head without contrast unremarkable. Labs unremarkable including normal TSH, lactic, negative UA. Transferred to [facility] Neuro ICU for further management. [...] brain mass recently (last 6 months) at [facility] andis supposed to have a brain biopsy in November 2021. Patient recently saw Dr. Vicky De Dios ([facility]) on 08/06/21 for migraines [...] On arrival to the Neuro ICU, Adrienne (CYANIDE CASE HARDENER) witnessed two brief (~10 seconds) episodes of [...] with patient and mom. Records requested from [facility] where patient states she was seen [...] hysterectomy who presented as a transfer from [facility] for seizure like episodes. NEUROLOGIC: - [...] UMANG Garcia CNP Neuro Critical Care Pager [phone] 10/20/2021 6:49 AM * Juan Francisco Peterson [...] saturating at 100%. documented in this encounterBON ALTA BATES CAMPUSRed Lozenge, inc. Work Phone: [phone] NoteDISCHARGE SUMMARY DISCHARGE DATE: 10/02/2021 PRIMARY DIAGNOSES: [...] when pain free and no longer on narcotics.[facility]08-12-2022 NoteOPERATIVE NOTE OPERATION DATE: 10/01/2021 PROCEDURE: Total abdominal hysterectomy with partial bilateral salpingectomy with cystoscopy. PREOPERATIVE DIAGNOSIS: Menorrhagia, dysmenorrhea, dyspareunia, pelvic pain. POSTOPERATIVE DIAGNOSIS: Menorrhagia, dysmenorrhea, dyspareunia, pelvic pain. ANESTHESIA: General. SURGEON: Zay Blas D.O. STONE LATHE OPERATOR: VERNA Yap URINE OUTPUT: Yellow and [...] the Recovery Room in stable condition. ??[facility] Medical [id number] NotePROCEDURE: US PELVIS TRANSVAG, 08/14/2021 9:01 AM [...] Electronically authenticated by: NICOLE MEDELLIN Date: 2021-08-14 10:19[facility]11-04-2021 Hospital Discharge instructions* Instructions* Keven Ching DO - 12/24/2020 Continue all home medications as prescribed. Follow up with your family doctor and neurologist. Return to the emergency department for new, worsening or worrisome symptoms. documented in this encounterTherapeuticsMD Phone: evaluation note* Diagnosis Migraine without status migrainosus, not intractable, unspecified migraine type- Primary documented in this encounter [employer] Phone: evaluation note* Diagnosis Seizure-like activity (HCC)- Primary Other convulsions Seizure disorder (HCC) Unspecified epilepsy without mention of intractable epilepsy Psychogenic nonepileptic seizure documented in this encounter [facility] [employer] Phone: evaluation note* Diagnosis Seizure-like activity (HCC)- Primary Other convulsions [facility]* Diagnosis Psychogenic nonepileptic seizure- Primary Spells of trembling Abnormal involuntary movements Chronic intractable headache, unspecified headache type documented in this encounter [facility]* Diagnosis Seizure-like activity (HCC)- Primary Other convulsions Psychogenic nonepileptic seizure documented in this encounter [facility]* Diagnosis Seizure-like activity (HCC)- Primary Other convulsions documented [facility] this [facility]* Diagnosis Chronic migraine w/o aura, not intractable, w/o stat migr- Primary documented in this encounter [facility]* Diagnosis Intractable chronic migraine without aura and with status migrainosus- Primary Chronic migraine without aura, with intractable migraine, so stated, with status migrainosus documented [facility] this encounter [facility]* Diagnosis Intractable chronic migraine without aura and with status migrainosus- Primary Chronic migraine without aura, with intractable migraine, so stated, with status migrainosus documented in this encounter [facility]* Diagnosis Chronic migraine w/o aura, not [...] with status migrainosus [facility]* Diagnosis Chronic migraine w/o aura, not intractable, w/o stat migr Cervicalgia Migraine without aura and without status migrainosus, not intractable Migraine without aura, without mention of intractable migraine without mention of status migrainosus documented in this encounter [facility]* Diagnosis Intractable chronic migraine without [...] of status migrainosus documented in this encounter [facility]* Diagnosis Intractable chronic migraine without aura and without status migrainosus- Primary Chronic migraine without aura, with intractable migraine, so stated, without mention of status migrainosus documented in this encounter [facility]* Diagnosis Intractable chronic migraine without aura and without status migrainosus- Primary Chronic migraine without aura, with intractable migraine, so stated, without mention of status migrainosus documented in this encounter [facility]* Diagnosis Acute right flank pain- Primary [...] (CMS/HCC) Pain, dental documented [facility] encounter [facility]* Diagnosis Chronic migraine without aura, with intractable migraine, so stated, with status migrainosus- Primary Intractable chronic migraine without aura and with status migrainosus Chronic migraine without aura, with intractable migraine, so stated, with status migrainosus documented [facility] this encounter [facility]* Diagnosis Chronic migraine without aura, with intractable migraine, so stated, with status migrainosus- Primary Intractable chronic migraine without aura and with status migrainosus Chronic migraine without aura, with intractable migraine, so stated, with status migrainosus documented in this encounter [facility]* Diagnosis Acute right flank pain- Primary Mild persistent asthma without complication (CMS/HCC) Morbid obesity (CMS/HCC) Morbid obesity Body mass index [BMI] 45.0-49.9, adult (Z68.42) Acute bronchitis due to other specified organisms- Primary Mild persistent asthma with (acute) exacerbation ([facility]) Acute bronchitis due to other specified organisms- Primary Mixed bipolar I disorder ([facility]) Bipolar I disorder, most recent episode (or current) mixed, unspecified Mild persistent asthma without complication ([facility])- Primary Class 3 severe obesity due to excess calories without serious comorbidity with body mass index (BMI) of 50.0 to 59.9 in adult ([facility]) Fatigue, unspecified type Mixed bipolar I disorder ([facility]) Bipolar I disorder, most recent episode (or current) mixed, unspecified Chronic migraine without aura without status migrainosus, not intractable ([facility]) Pain, dental Pain, dental documented in this encounter [facility]* Diagnosis Chronic migraine without aura, with intractable migraine, so stated, with status migrainosus- Primary documented in this encounter [facility]* Diagnosis Chronic migraine without aura, with intractable migraine, so stated, with status migrainosus- Primary Intractable chronic migraine without aura and with status migrainosus Chronic migraine without aura, with intractable migraine, so stated, with status migrainosus documented in this encounter [facility]* Diagnosis Acute right flank pain- Primary Mild persistent asthma without complication ([facility]) Morbid obesity ([facility]) Morbid obesity Body mass index [BMI] 45.0-49.9, adult (Z68.42) Acute bronchitis due to other specified organisms- Primary Mild persistent asthma with (acute) exacerbation ([facility]) Acute bronchitis due to other specified organisms- Primary Mixed bipolar I disorder ([facility]) Bipolar I disorder, most recent episode (or current) mixed, unspecified Mild persistent asthma without complication ([facility])- Primary Class 3 severe obesity due to excess calories without serious comorbidity with body mass index (BMI) of 50.0 to 59.9 in adult ([facility]) Fatigue, unspecified type Mixed bipolar I disorder ([facility]) Bipolar I disorder, most recent episode (or current) mixed, unspecified Chronic migraine without aura without status migrainosus, not intractable ([facility]) Pain, dental Mild persistent asthma with (acute) exacerbation ([facility])- Primary Generalized edema Edema SOB (shortness of breath) on exertion Shortness of breath [facility] Diagnosis Acute right flank pain- Primary Mild persistent asthma without complication ([facility]) Morbid obesity ([facility]) Morbid obesity Body mass index [BMI] 45.0-49.9, adult (Z68.42) Acute bronchitis due to other specified organisms- Primary Mild persistent asthma with (acute) exacerbation ([facility]) Acute bronchitis due to other specified organisms- Primary Mixed bipolar I disorder ([facility]) Bipolar I disorder, most recent episode (or current) mixed, unspecified Mild persistent asthma without complication ([facility])- Primary Class 3 severe obesity due to excess calories without serious comorbidity with body mass index (BMI) of 50.0 to 59.9 in adult ([facility]) Fatigue, unspecified type Mixed bipolar I disorder ([facility]) Bipolar I disorder, most recent episode (or current) mixed, unspecified Chronic migraine without aura without status migrainosus, not intractable ([facility]) Pain, dental Mild persistent asthma with (acute) exacerbation ([facility])- Primary Generalized edema Edema SOB (shortness of breath) on exertion Shortness of breath COVID-19 [facility] Diagnosis Severe persistent asthma without complication ([facility]) [facility]* Diagnosis Acute bronchitis due to other specified organisms- Primary Mild persistent asthma with (acute) exacerbation ([facility]) [facility]* Diagnosis Acute bronchitis due to other specified organisms- Primary Mixed bipolar I disorder ([facility]) Bipolar I disorder, most recent episode (or current) mixed, unspecified documented [facility]* Diagnosis Acute right flank pain- Primary Mild persistent asthma without complication ([facility]) Morbid obesity ([facility]) Morbid obesity Body mass index [BMI] 45.0-49.9, adult (Z68.42) Acute bronchitis due to other specified organisms- Primary Mild persistent asthma with (acute) exacerbation ([facility]) Acute bronchitis due to other specified organisms- Primary Mixed bipolar I disorder ([facility]) Bipolar I disorder, most recent episode (or current) mixed, unspecified Mild persistent asthma without complication ([facility])- Primary Class 3 severe obesity due to excess calories without serious comorbidity with body mass index (BMI) of 50.0 to 59.9 in adult ([facility]) Fatigue, unspecified type Mixed bipolar I disorder ([facility]) Bipolar I disorder, most recent episode (or current) mixed, unspecified Chronic migraine without aura without status migrainosus, not intractable ([facility]) Pain, dental Mild persistent asthma with (acute) exacerbation ([facility])- Primary Generalized edema Edema SOB (shortness of breath) on exertion Shortness of breath Generalized abdominal pain- Primary Abdominal pain, generalized Intractable nausea and vomiting Mild persistent asthma with (acute) exacerbation ([facility]) documented in this encounter [facility]* Diagnosis Acute right flank pain- Primary Mild persistent asthma without complication ([facility]) Morbid obesity ([facility]) Morbid obesity Body mass index [BMI] 45.0-49.9, adult (Z68.42) Acute bronchitis due to other specified organisms- Primary Mild persistent asthma with (acute) exacerbation ([facility]) Acute bronchitis due to other specified organisms- Primary Mixed bipolar I disorder ([facility]) Bipolar I disorder, most recent episode (or current) mixed, unspecified Mild persistent asthma without complication ([facility])- Primary Class 3 severe obesity due to excess calories without serious comorbidity with body mass index (BMI) of 50.0 to 59.9 in adult ([facility]) Fatigue, unspecified type Mixed bipolar I disorder ([facility]) Bipolar I disorder, most recent episode (or current) mixed, unspecified Chronic migraine without aura without status migrainosus, not intractable ([facility]) Pain, dental Mild persistent asthma with (acute) exacerbation ([facility])- Primary Generalized edema Edema SOB (shortness of breath) on exertion Shortness of breath Generalized abdominal pain- Primary Abdominal pain, generalized Intractable nausea and vomiting Mild persistent asthma with (acute) exacerbation ([facility]) Pelvic pain in female Unspecified symptom associated with female genital organs Complex ovarian cyst [facility]* Diagnosis Acute right flank pain- Primary Mild persistent asthma without complication ([facility]) Morbid obesity ([facility]) Morbid obesity Body mass index [BMI] 45.0-49.9, adult (Z68.42) Acute bronchitis due to other specified organisms- Primary Mild persistent asthma with (acute) exacerbation ([facility]) Acute bronchitis due to other specified organisms- Primary Mixed bipolar I disorder ([facility]) Bipolar I disorder, most recent episode (or current) mixed, unspecified Mild persistent asthma without complication ([facility])- Primary Class 3 severe obesity due to excess calories without serious comorbidity with body mass index (BMI) of 50.0 to 59.9 in adult ([facility]) Fatigue, unspecified type Mixed bipolar I disorder ([facility]) Bipolar I disorder, most recent episode (or current) mixed, unspecified Chronic migraine without aura without status migrainosus, not intractable ([facility]) Pain, dental Mild persistent asthma with (acute) exacerbation ([facility])- Primary Generalized edema Edema SOB (shortness of breath) on exertion Shortness of breath Generalized abdominal pain- Primary Abdominal pain, generalized Intractable nausea and vomiting Mild persistent asthma with (acute) exacerbation ([facility]) Cyst of right ovary Other and unspecified ovarian cyst Pelvic pain in female Unspecified symptom associated with female genital organs Pelvic peritoneal adhesions, female Pelvic peritoneal adhesions, female (postoperative) (postinfection) [facility] Bilateral ovarian cysts- Primary Other and unspecified ovarian cyst Preop testing Unspecified pre-operative examination [facility] Diagnosis Bilateral ovarian cysts- Primary Other and unspecified ovarian cyst Moderate asthma with acute exacerbation, unspecified whether persistent Encounter for preoperative pulmonary examination [facility] Diagnosis Acute cough [R05.1]- Primary [facility]* Diagnosis Intractable chronic migraine without aura and without status migrainosus- Primary Chronic migraine without aura, with intractable migraine, so stated, without mention of status migrainosus [facility] Diagnosis Asthma, unspecified asthma severity, unspecified whether complicated, unspecified whether persistent- Primary Bilateral ovarian cysts Other and unspecified ovarian cyst Moderate asthma with acute exacerbation, unspecified whether persistent Encounter for preoperative pulmonary examination Pulmonary nodule Other diseases of lung, not elsewhere classified Gastroesophageal reflux disease, unspecified whether esophagitis present [facility]* Diagnosis Cyst of right ovary- Primary Other and unspecified ovarian cyst [facility]* Diagnosis Preop testing- Primary Unspecified pre-operative examination Bilateral ovarian cysts Other and unspecified ovarian cyst documented [facility]* Diagnosis S/P bilateral salpingo-oophorectomy Acquired absence of organ, genital organs documented [facility]* Diagnosis Post-op pain- Primary Other acute postoperative pain [facility]* Diagnosis Acute right flank pain- Primary Mild persistent asthma without complication (CMS/HCC) Morbid obesity ([facility]) Morbid obesity Body mass index [BMI] 45.0-49.9, [...] (BMI) of 50.0 to 59.9 in adult ([facility]) Fatigue, unspecified type Mixed bipolar I disorder ([facility]) Bipolar I disorder, most recent episode (or current) mixed, unspecified Chronic migraine without aura without status migrainosus, not intractable ([facility]) Pain, dental Mild persistent asthma with (acute) exacerbation ([facility])- Primary Generalized edema Edema SOB (shortness of breath) on exertion Shortness of breath Generalized abdominal pain- Primary Abdominal pain, generalized Intractable nausea and vomiting Mild persistent asthma with (acute) exacerbation ([facility]) Visit for wound check Yeast infection [facility] Diagnosis Abdominal wall cellulitis- Primary Postoperative surgical complication involving genitourinary system associated with genitourinary procedure, unspecified complication Postoperative surgical complication involving genitourinary system associated with genitourinary procedure documented [facility]* Diagnosis Acute right flank pain- Primary Mild persistent asthma without complication (CMS/HCC) Morbid obesity ([facility]) Morbid obesity Body mass index [BMI] 45.0-49.9, adult (Z68.42) Acute bronchitis due to other specified organisms- Primary Mild persistent asthma with (acute) exacerbation (CMS/HCC) Acute bronchitis due to other specified organisms- Primary Mixed bipolar I disorder (CMS/HCC) Bipolar I disorder, most recent episode (or current) mixed, unspecified Mild persistent asthma without complication ([facility])- Primary Class 3 severe obesity due to excess calories without serious comorbidity with body mass index (BMI) of 50.0 to 59.9 in adult ([facility]) Fatigue, unspecified type Mixed bipolar I disorder ([facility]) Bipolar I disorder, most recent episode (or current) mixed, unspecified Chronic migraine without aura without status migrainosus, not intractable ([facility]) Pain, dental Mild persistent asthma with (acute) exacerbation ([facility])- Primary Generalized edema Edema SOB (shortness of breath) on exertion Shortness of breath Generalized abdominal pain- Primary Abdominal pain, generalized Intractable nausea and vomiting Mild persistent asthma with (acute) exacerbation ([facility]) Well woman exam with routine gynecological exam Routine gynecological examination [facility] Postoperative surgical complication involving genitourinary system associated with genitourinary procedure, unspecified complication- Primary Post-op pain Other acute postoperative pain Sweating profusely Generalized hyperhidrosis Menopausal symptoms Symptomatic menopausal or female climacteric states Nausea and vomiting, unspecified vomiting type [facility] Diagnosis Post-operative pain- Primary Other acute postoperative pain documented [facility]* Diagnosis Muscle spasm- Primary Spasm of muscle Fatigue due to depression Nausea and vomiting, unspecified vomiting type Mild persistent asthma without status asthmaticus without complication Psychogenic nonepileptic seizure [facility]* Diagnosis Postoperative surgical complication involving genitourinary system associated with genitourinary procedure, unspecified complication documented in this encounter [facility]* Diagnosis Postoperative surgical complication involving genitourinary system associated with genitourinary procedure, unspecified complication documented in this encounter [facility]* Diagnosis Moderate persistent asthma, unspecified whether complicated [facility]* Diagnosis Postoperative infection, unspecified type, subsequent encounter- Primary [facility]* Diagnosis Chronic migraine without [...] of status migrainosus [facility] Diagnosis Intractable chronic migraine without aura and with status migrainosus- Primary Chronic migraine without aura, with intractable migraine, so stated, with status migrainosus Nausea Nausea alone Generalized anxiety disorder documented [facility] encounter [facility]* Diagnosis S/P bilateral salpingo-oophorectomy- Primary Acquired absence of organ, genital organs Menopausal symptoms Symptomatic menopausal or female climacteric states documented in this encounter [facility]* Diagnosis Moderate persistent asthma with acute exacerbation- Primary Acute pansinusitis, recurrence not specified Antibiotic-induced yeast infection documented in this [facility]* Diagnosis Moderate persistent asthma, unspecified whether complicated documented [facility] this [facility]* Diagnosis Intractable chronic migraine without aura and without status migrainosus Chronic migraine without aura, with intractable migraine, so stated, without mention of status migrainosus [facility]* Diagnosis Weight loss- Primary Loss of weight Moderate persistent asthma with acute exacerbation Seasonal allergic rhinitis, unspecified trigger documented [facility] this [facility]* Diagnosis Seasonal allergic rhinitis, unspecified trigger documented [facility] this [facility]* Diagnosis Family history of genetic disorder- Primary Family history of other condition [facility] Diagnosis Acute right flank [...] Dyspareunia in female [facility] Diagnosis Status migrainosus- Primary Variants of [...] with status migrainosus [facility]* Diagnosis Eye infection, bilateral- Primary Ingrown nail of great toe documented [facility]* Diagnosis Intractable chronic migraine without aura and without status migrainosus- Primary Chronic migraine without aura, with intractable migraine, so stated, without mention of status migrainosus [facility]* Diagnosis Chronic migraine without aura, with intractable migraine, so stated, with status migrainosus- Primary Intractable chronic migraine without aura and with status migrainosus Chronic migraine without aura, with intractable migraine, so stated, with status migrainosus [facility]* Diagnosis Intractable chronic migraine without aura and with status migrainosus- Primary Chronic migraine without aura, with intractable migraine, so stated, with status migrainosus Status migrainosus Variants of migraine, not elsewhere classified, without mention of intractable migraine without mention of status migrainosus [facility]* Diagnosis Family history of genetic disorder- Primary Family history of other condition [facility] Diagnosis Allergic reaction, sequela- Primary documented [facility]* Diagnosis Intractable chronic migraine without aura and without status migrainosus- Primary Chronic migraine without aura, with intractable migraine, so stated, without mention of status migrainosus [facility]* Diagnosis Acute right flank pain- Primary Mild persistent asthma without complication (HCC) Morbid obesity ([facility]) Morbid obesity Body mass index [BMI] 45.0-49.9, [...] (BMI) of 50.0 to 59.9 in adult ([facility]) Fatigue, unspecified type Mixed bipolar I [...] vomiting Mild persistent asthma with (acute) exacerbation ([facility]) Hot flashes due to surgical menopause [facility] Diagnosis Moderate persistent asthma, unspecified whether complicated [facility]* Diagnosis Muscle spasm Spasm of muscle [facility]* Diagnosis Left otitis media, unspecified otitis media type- Primary Mild asthma with exacerbation, unspecified whether persistent [facility]* Diagnosis Moderate asthma with acute exacerbation, unspecified whether persistent [facility]* Diagnosis JUAN DAVID (obstructive sleep apnea)- Primary Obstructive sleep apnea (adult) (pediatric) documented [facility]* Diagnosis Moderate persistent asthma without complication- Primary Gastroesophageal reflux disease without esophagitis Esophageal reflux Environmental allergies Other allergy, other than to medicinal agents [facility]* Diagnosis Moderate persistent asthma without [...] sent through Care Everywhere. * Ingrown toenail ([place]) [facility]ructionsNot [facility] file documented in this encounter[facility] SystemInstructionsNot on file documented in this encounterPro[facility] SystemInstructionsNot on file documented in this encounterPro[facility] SystemInstructions* Attachments The following attachments cannot be sent through Care Everywhere. * Olopatadine (Ophthalmic) ([place]) documented in this encounterPro[facility] Health SystemReason for referral (narrative)* Outpatient Procedure (Routine) - Pending ReviewSpecialtyDiagnoses / ProceduresReferred By ContactReferred To [facility] Diagnoses Seizure-like activity (HCC) Procedures EPIL EEG LEAD PLACEMENT EEG EXTENDED MONITORING 61-119 MINUTES ELECTROENCEPHALOGRAM REC COMA/SLEEP ONLY Geri Madera APRN.MANUFACTURING TECH [address] [place] [address] [place] [address] Referral IDStatusMarliellis fischel cancer centerStbillings DateExpiration DateVisits RequestedVisits [id number] Auto-Generated Referral / [facility] for referral (narrative)* Outpatient Procedure (Routine) - Pending ReviewSpecialtyDiagnoses / ProceduresReferred By ContactReferred To [facility] Diagnoses Psychogenic nonepileptic seizure Spells of trembling Procedures EPIL AMBULATORY EEG EEG COMPLETE STD PHYS/QHP&GT;84 HR W/O Tyrone Diaz MD, PhD [id number] [place] [address] Referral IDStatusReasonStart DateExpiration DateVisits RequestedVisits [id number] Review Auto-Generated Referral * Outpatient Procedure (Routine) - Pending ReviewSpecialtyDiagnoses / Procedures Referred By ContactReferred To [facility] Diagnoses Psychogenic nonepileptic seizure Spells of trembling Procedures EPIL AMBULATORY EEG EEG COMPLETE STD PHYS/QHP&GT;84 HR W/O Tyrone Diaz MD, PhD [id number] [place] [address] Referral IDStatusReasonStart DateExpiration DateVisits RequestedVisits [id number] Review Auto-Generated Referral / * Consult, Test, Treat (Routine) - AuthorizedSpecialtyDiagnoses / Procedures Referred By ContactReferred To Contact Diagnoses Chronic intractable headache, unspecified headache type Procedures CONSULT TO HEADACHE CLINIC OFFICE/OUTPATIENT NEW HIGH MDM 60-74 MINUTES Tyrone Dolan MD, PhD [address] [place] [address] Referral IDStatusReasonStart DateExpiration DateVisits RequestedVisits [id number] PCP Requested Referral / [facility] for referral (narrative)* Outpatient Procedure (Routine) - Pending ReviewSpecialtyDiagnoses / ProceduresReferred By [facility]Ref[facility] Diagnoses Seizure-like activity (HCC) Procedures EPIL EEG ROUTINE ELECTROENCEPHALOGRAM REC COMA/SLEEP ONLY Nelly Saldaña PA-C [address] [place] [address] [facility] [place] [facility] [place] [address] Referral IDStatusReasonStbillings DateExpiration DateVisits RequestedVisits [id number] Review Auto-Generated Referral [facility] for referral (narrative)* Misc (Routine) - Pending Review SpecialtyDiagnoses / ProceduresReferred By ContactReferred To Contact Procedures Discharge Follow-Up George Michelle MD [address] [facility], [address] [place] [address] Phone: tel: fax: Referral IDStatusReasonStart DateExpiration DateVisits RequestedVisits [id number] Review * Misc (Routine) - Pending ReviewSpecialtyDiagnoses / ProceduresReferred By ContactReferred To Contact Procedures Hygiene George Michelle MD [address] [address] Phone: tel: fax: Referral IDStatusMarliasonStart DateExpiration DateVisits RequestedVisits [id number] Review [facility] Advance Directives TypeDate RecordedPatient RepresentativeExplanationACP-Advance DirectiveACP-Power of [...] push over 2-5 minutes. Given07/28/2022 8:23 AM IBF954 mg magnesium sulfate 1 g in D5W [...] and Hematology/Oncology 4) Eclampsia or Preeclampsia New Bag/Syringe/Ziaaeh5407/28/2022 9:08 AM EDT1 g100 mL/hr methocarbamol iv infusion 1,000 mg in NaCl 0.9% 100 mL (ROBAXIN) 1,000 mg, INTRAVENOUS, Administer over 30 Minutes, ONCE, 1 dose, On Meg 07/28/22 at 0800, Administer IV while in recumbent position. Maintain position for at least 10-15 minutes following infusion. New Bag/Syringe/Hslina2807/28/2022 8:32 AM EDT1,000 mg promethazine 25 mg [...] push over 2-5 minutes. Given11/11/2022 8:45 AM VFL434 mg magnesium sulfate 1 g in D5W [...] and Hematology/Oncology 4) Eclampsia or Preeclampsia New Bag/Syringe/Pldkcr4511/11/2022 9:21 AM EDT1 g100 mL/hr methocarbamol iv infusion 1,000 mg in NaCl 0.9% 100 mL (ROBAXIN) 1,000 mg, INTRAVENOUS, Administer over 30 Minutes, ONCE, 1 dose, On Mon11/11/22 at 0830, AdministerIV while in recumbent position. Maintain position for at least 10-15 minutes following infusion. New Bag/Syringe/Slbdsi9711/11/2022 8:50 AM EDT1,000 mg NaCl 0.9% 500 mL iv bolus 500 mL, INTRAVENOUS, at 999 mL/hr, Administer over 0.5 Hours, ONCE, 1 dose, On Mon11/11/22 at 0830 New Bag/Syringe/Wtcmka5311/11/2022 8:40 AM KJV259 mL999 mL/hr ondansetron (PF) 8 mg injection [...] By ContactReferred To Contact Jesse Borrego MD [address] [place] [address] Referral IDStatusReasonStart DateExpiration DateVisits RequestedVisits [id number] / ProceduresReferred By Contact Referred To Contact Diagnoses Intractable chronic migraine without aura and with status migrainosus Intractable chronic migraine without aura and without status migrainosus Procedures PROVIDER ORDERED FOLLOW UP OFFICE/OUTPATIENT NEW [facility] 60 MINUTES Suzan Ivey APRN.MANUFACTURING TECH [id number] Referral IDStatusReasonStart DateExpiration DateVisits RequestedVisits [id number] PCP Requested Referral /[id number] / ProceduresReferred By ContactReferred To Contact Diagnoses Intractable chronic migraine without aura and without status migrainosus Procedures PROVIDER ORDERED FOLLOW UP OFFICE/OUTPATIENT [facility] 60 MINUTES Sagar Barth APRN.MANUFACTURING TECH [address] [place] [address] Referral IDStatusReasonStart DateExpiration DateVisits RequestedVisits [id number] PCP Requested Referral /[id number] / ProceduresReferred By ContactReferred To Contact Sagar Barth APRN.MANUFACTURING TECH [id number] Referral IDStatusReasonStart DateExpiration DateVisits RequestedVisits [id number] / Procedures Referred By ContactReferred To ContactPsychology Diagnoses Psychogenic nonepileptic seizure Procedures CONSULT TO PSYCHOLOGY OFFICE/OUTPATIENT [facility] 60 MINUTES Curtis Lepe PA-C [address] [place] [address] Referral IDStatusReasonStart DateExpiration DateVisits RequestedVisits [id number] Review PCP Requested Referral / Additional Source Comments Source Comments (unrecognize d section and content) In the event this informatio n is protected by the Federal Confidentiality of Alcohol and Drug Abuse Patient Records regulations: The Federal rules restrict any use of the information to criminally investigate or prosecute any alcohol or drug abuse patient.[facility]In the event this information is protected by the Federal Confidentiality of Alcohol and Drug Abuse Patient Records regulations: The Federal rules restrict any use of the information to criminally investigate or prosecute any alcohol or drug abuse patient.[facility] WestIn the event this information is protected by the Federal Confidentiality of Alcohol and Drug Abuse Patient Records regulations: The Federal rules restrict any use of the information to criminally investigate or prosecute any alcohol or drug abuse patient.[facility]In the event this information is protected by the Federal Confidentiality of Alcohol and Drug Abuse Patient Records regulations: The Federal rules restrict any use of the information to criminally investigate or prosecute any alcohol or drug abuse patient.[facility]In the event this information is protected by the Federal Confidentiality of Alcohol and Drug Abuse Patient Records regulations: The Federal rules restrict any use of the information to criminally investigate or prosecute any alcohol or drug abuse patient.[facility]In the event this information is protected by the Federal Confidentiality of Alcohol and Drug Abuse Patient Records regulations: The Federal rules restrict any use of the information to criminally investigate or prosecute any alcohol or drug abuse patient.[facility]In the event this information is protected by the Federal Confidentiality of Alcohol and Drug Abuse Patient Records regulations: The Federal rules restrict any use of the information to criminally investigate or prosecute any alcohol or drug abuse patient.[facility]In the event this information is protected by the Federal Confidentiality of Alcohol and Drug Abuse Patient Records regulations: The Federal rules restrict any use of the information to criminally investigate or prosecute any alcohol or drug abuse patient.[facility]In the event this information is protected by the Federal Confidentiality of Alcohol and Drug Abuse Patient Records regulations: The Federal rules restrict any use of the information to criminally investigate or prosecute any alcohol or drug abuse patient.[facility]In the event this information is protected by the Federal Confidentiality of Alcohol and Drug Abuse Patient Records regulations: The Federal rules restrict any use of the information to criminally investigate or prosecute any alcohol or drug abuse patient.[facility]In the event this information is protected by the Federal Confidentiality of Alcohol and Drug Abuse Patient Records regulations: The Federal rules restrict any use of the information to criminally investigate or prosecute any alcohol or drug abuse patient.[facility]In the event this information is protected by the Federal Confidentiality of Alcohol and Drug Abuse Patient Records regulations: The Federal rules restrict any use of the information to criminally investigate or prosecute any alcohol or drug abuse patient.[facility]In the event this information is protected by the Federal Confidentiality of Alcohol and Drug Abuse Patient Records regulations: The Federal rules restrict any use of the information to criminally investigate or prosecute any alcohol or drug abuse patient.[facility]In the event this information is protected by the Federal Confidentiality of Alcohol and Drug Abuse Patient Records regulations: The Federal rules restrict any use of the information to criminally investigate or prosecute any alcohol or drug abuse patient.[facility]In the event this information is protected by the Federal Confidentiality of Alcohol and Drug Abuse Patient Records regulations: The Federal rules restrict any use of the information to criminally investigate or prosecute any alcohol or drug abuse patient.[facility]In the event this information is protected by the Federal Confidentiality of Alcohol and Drug Abuse Patient Records regulations: The Federal rules restrict any use of the information to criminally investigate or prosecute any alcohol or drug abuse patient.[facility] WestIn the event this information is protected by the Federal Confidentiality of Alcohol and Drug Abuse Patient Records regulations: The Federal rules restrict any use of the information to criminally investigate or prosecute any alcohol or drug abuse patient.[facility]In the event this information is protected by the Federal Confidentiality of Alcohol and Drug Abuse Patient Records regulations: The Federal rules restrict any use of the information to criminally investigate or prosecute any alcohol or drug abuse patient.[facility] WestIn the event this information is protected by the Federal Confidentiality of Alcohol and Drug Abuse Patient Records regulations: The Federal rules restrict any use of the information to criminally investigate or prosecute any alcohol or drug abuse patient.[facility]In the event this information is protected by the Federal Confidentiality of Alcohol and Drug Abuse Patient Records regulations: The Federal rules restrict any use of the information to criminally investigate or prosecute any alcohol or drug abuse patient.[facility]In the event this information is protected by the Federal Confidentiality of Alcohol and Drug Abuse Patient Records regulations: The Federal rules restrict any use of the information to criminally investigate or prosecute any alcohol or drug abuse patient.[facility]In the event this information is protected by the Federal Confidentiality of Alcohol and Drug Abuse Patient Records regulations: The Federal rules restrict any use of the information to criminally investigate or prosecute any alcohol or drug abuse patient.[facility]In the event this information is protected by the Federal Confidentiality of Alcohol and Drug Abuse Patient Records regulations: The Federal rules restrict any use of the information to criminally investigate or prosecute any alcohol or drug abuse patient.[facility]In the event this information is protected by the Federal Confidentiality of Alcohol and Drug Abuse Patient Records regulations: The Federal rules restrict any use of the information to criminally investigate or prosecute any alcohol or drug abuse patient.[facility]In the event this information is protected by the Federal Confidentiality of Alcohol and Drug Abuse Patient Records regulations: The Federal rules restrict any use of the information to criminally investigate or prosecute any alcohol or drug abuse patient.[facility]In the event this information is protected by the Federal Confidentiality of Alcohol and Drug Abuse Patient Records regulations: The Federal rules restrict any use of the information to criminally investigate or prosecute any alcohol or drug abuse patient.[facility]In the event this information is protected by the Federal Confidentiality of Alcohol and Drug Abuse Patient Records regulations: The Federal rules restrict any use of the information to criminally investigate or prosecute any alcohol or drug abuse patient.[facility]In the event this information is protected by the Federal Confidentiality of Alcohol and Drug Abuse Patient Records regulations: The Federal rules restrict any use of the information to criminally investigate or prosecute any alcohol or drug abuse patient.[facility]In the event this information is protected by the Federal Confidentiality of Alcohol and Drug Abuse Patient Records regulations: The Federal rules restrict any use of the information to criminally investigate or prosecute any alcohol or drug abuse patient.[facility]In the event this information is protected by the Federal Confidentiality of Alcohol and Drug Abuse Patient Records regulations: The Federal rules restrict any use of the information to criminally investigate or prosecute any alcohol or drug abuse patient.[facility]In the event this information is protected by the Federal Confidentiality of Alcohol and Drug Abuse Patient Records regulations: The Federal rules restrict any use of the information to criminally investigate or prosecute any alcohol or drug abuse patient.[facility]In the event this information is protected by the Federal Confidentiality of Alcohol and Drug Abuse Patient Records regulations: The Federal rules restrict any use of the information to criminally investigate or prosecute any alcohol or drug abuse patient.[facility]In the event this information is protected by the Federal Confidentiality of Alcohol and Drug Abuse Patient Records regulations: The Federal rules restrict any use of the information to criminally investigate or prosecute any alcohol or drug abuse patient.[facility]In the event this information is protected by the Federal Confidentiality of Alcohol and Drug Abuse Patient Records regulations: The Federal rules restrict any use of the information to criminally investigate or prosecute any alcohol or drug abuse patient.[facility]In the event this information is protected by the Federal Confidentiality of Alcohol and Drug Abuse Patient Records regulations: The Federal rules restrict any use of the information to criminally investigate or prosecute any alcohol or drug abuse patient.[facility]In the event this information is protected by the Federal Confidentiality of Alcohol and Drug Abuse Patient Records regulations: The Federal rules restrict any use of the information to criminally investigate or prosecute any alcohol or drug abuse patient.[facility]In the event this information is protected by the Federal Confidentiality of Alcohol and Drug Abuse Patient Records regulations: The Federal rules restrict any use of the information to criminally investigate or prosecute any alcohol or drug abuse patient.[facility]In the event this information is protected by the Federal Confidentiality of Alcohol and Drug Abuse Patient Records regulations: The Federal rules restrict any use of the information to criminally investigate or prosecute any alcohol or drug abuse patient.[facility]In the event this information is protected by the Federal Confidentiality of Alcohol and Drug Abuse Patient Records regulations: The Federal rules restrict any use of the information to criminally investigate or prosecute any alcohol or drug abuse patient.[facility]In the event this information is protected by the Federal Confidentiality of Alcohol and Drug Abuse Patient Records regulations: The Federal rules restrict any use of the information to criminally investigate or prosecute any alcohol or drug abuse patient.[facility]In the event this information is protected by the Federal Confidentiality of Alcohol and Drug Abuse Patient Records regulations: The Federal rules restrict any use of the information to criminally investigate or prosecute any alcohol or drug abuse patient.[facility]In the event this information is protected by the Federal Confidentiality of Alcohol and Drug Abuse Patient Records regulations: The Federal rules restrict any use of the information to criminally investigate or prosecute any alcohol or drug abuse patient.[facility]In the event this information is protected by the Federal Confidentiality of Alcohol and Drug Abuse Patient Records regulations: The Federal rules restrict any use of the information to criminally investigate or prosecute any alcohol or drug abuse patient.[facility]In the event this information is protected by the Federal Confidentiality of Alcohol and Drug Abuse Patient Records regulations: The Federal rules restrict any use of the information to criminally investigate or prosecute any alcohol or drug abuse patient.[facility]In the event this information is protected by the Federal Confidentiality of Alcohol and Drug Abuse Patient Records regulations: The Federal rules restrict any use of the information to criminally investigate or prosecute any alcohol or drug abuse patient.[facility]In the event this information is protected by the Federal Confidentiality of Alcohol and Drug Abuse Patient Records regulations: The Federal rules restrict any use of the information to criminally investigate or prosecute any alcohol or drug abuse patient.[facility]In the event this information is protected by the Federal Confidentiality of Alcohol and Drug Abuse Patient Records regulations: The Federal rules restrict any use of the information to criminally investigate or prosecute any alcohol or drug abuse patient.[facility]In the event this information is protected by the Federal Confidentiality of Alcohol and Drug Abuse Patient Records regulations: The Federal rules restrict any use of the information to criminally investigate or prosecute any alcohol or drug abuse patient.[facility]In the event this information is protected by the Federal Confidentiality of Alcohol and Drug Abuse Patient Records regulations: The Federal rules restrict any use of the information to criminally investigate or prosecute any alcohol or drug abuse patient.[facility]In the event this information is protected by the Federal Confidentiality of Alcohol and Drug Abuse Patient Records regulations: The Federal rules restrict any use of the information to criminally investigate or prosecute any alcohol or drug abuse patient.[facility]In the event this information is protected by the Federal Confidentiality of Alcohol and Drug Abuse Patient Records regulations: The Federal rules restrict any use of the information to criminally investigate or prosecute any alcohol or drug abuse patient.[facility]In the event this information is protected by the Federal Confidentiality of Alcohol and Drug Abuse Patient Records regulations: The Federal rules restrict any use of the information to criminally investigate or prosecute any alcohol or drug abuse patient.[facility]In the event this information is protected by the Federal Confidentiality of Alcohol and Drug Abuse Patient Records regulations: The Federal rules restrict any use of the information to criminally investigate or prosecute any alcohol or drug abuse patient.[facility]In the event this information is protected by the Federal Confidentiality of Alcohol and Drug Abuse Patient Records regulations: The Federal rules restrict any use of the information to criminally investigate or prosecute any alcohol or drug abuse patient.[facility]In the event this information is protected by the Federal Confidentiality of Alcohol and Drug Abuse Patient Records regulations: The Federal rules restrict any use of the information to criminally investigate or prosecute any alcohol or drug abuse patient.[facility]In the event this information is protected by the Federal Confidentiality of Alcohol and Drug Abuse Patient Records regulations: The Federal rules restrict any use of the information to criminally investigate or prosecute any alcohol or drug abuse patient.[facility]In the event this information is protected by the Federal Confidentiality of Alcohol and Drug Abuse Patient Records regulations: The Federal rules restrict any use of the information to criminally investigate or prosecute any alcohol or drug abuse patient.[facility]In the event this information is protected by the Federal Confidentiality of Alcohol and Drug Abuse Patient Records regulations: The Federal rules restrict any use of the information to criminally investigate or prosecute any alcohol or drug abuse patient.[facility]In the event this information is protected by the Federal Confidentiality of Alcohol and Drug Abuse Patient Records regulations: The Federal rules restrict any use of the information to criminally investigate or prosecute any alcohol or drug abuse patient.[facility]In the event this information is protected by the Federal Confidentiality of Alcohol and Drug Abuse Patient Records regulations: The Federal rules restrict any use of the information to criminally investigate or prosecute any alcohol or drug abuse patient.[facility]In the event this information is protected by the Federal Confidentiality of Alcohol and Drug Abuse Patient Records regulations: The Federal rules restrict any use of the information to criminally investigate or prosecute any alcohol or drug abuse patient.[facility] WestIn the event this information is protected by the Federal Confidentiality of Alcohol and Drug Abuse Patient Records regulations: The Federal rules restrict any use of the information to criminally investigate or prosecute any alcohol or drug abuse patient.[facility] WestIn the event this information is protected by the Federal Confidentiality of Alcohol and Drug Abuse Patient Records regulations: The Federal rules restrict any use of the information to criminally investigate or prosecute any alcohol or drug abuse patient.[facility] - WestIn the event this information is protected by the Federal Confidentiality of Alcohol and Drug Abuse Patient Records regulations: The Federal rules restrict any use of the information to criminally investigate or prosecute any alcohol or drug abuse patient.[facility] - WestIn the event this information is protected by the Federal Confidentiality of Alcohol and Drug Abuse Patient Records regulations: The Federal rules restrict any use of the information to criminally investigate or prosecute any alcohol or drug abuse patient.[facility] - WestIn the event this information is protected by the Federal Confidentiality of Alcohol and Drug Abuse Patient Records regulations: The Federal rules restrict any use of the information to criminally investigate or prosecute any alcohol or drug abuse patient.[facility] - WestIn the event this information is protected by the Federal Confidentiality of Alcohol and Drug Abuse Patient Records regulations: The Federal rules restrict any use of the information to criminally investigate or prosecute any alcohol or drug abuse patient.[facility] - WestIn the event this information is protected by the Federal Confidentiality of Alcohol and Drug Abuse Patient Records regulations: The Federal rules restrict any use of the information to criminally investigate or prosecute any alcohol or drug abuse patient.[facility] - WestIn the event this information is protected by the Federal Confidentiality of Alcohol and Drug Abuse Patient Records regulations: The Federal rules restrict any use of the information to criminally investigate or prosecute any alcohol or drug abuse patient.[facility] - WestIn the event this information is protected by the Federal Confidentiality of Alcohol and Drug Abuse Patient Records regulations: The Federal rules restrict any use of the information to criminally investigate or prosecute any alcohol or drug abuse patient.[facility] Reason for Visit (unrecogniz ed section and content) ReasonCommentsHeadacheSpecialtyDiagnoses / ProceduresReferred By ContactReferred To Contact Diagnoses Intractable chronic migraine without aura and without status migrainosus Procedures INJECTION, EPTINEZUMAB-JJMR, 1 MG Sagar Barth, UMANG.MANUFACTURING TECH [address] [place] [address] Phone: tel: fax: Neurology [address] [place], [place] Phone: tel: fax: Referral IDStatusReasonStart DateExpiration DateVisits RequestedVisits [id number]/31/20248/[id number]cpkvbc SpecialtyDiagnoses / ProceduresReferred By ContactReferred To Contact Diagnoses Intractable chronic migraine without aura and without status migrainosus Procedures INJECTION, EPTINEZUMAB-JJMR, 1 MG Sagar Barth, BIKE ASSEMBLER.MANUFACTURING TECH [address] [place] [address] Phone: tel: fax: Neurology [address] [place] [phone] Phone: tel: fax: ReasonCommentsInfusionHeadacheSpecialtyDiagnoses / ProceduresReferred By Contact Referred To ContactNeurology / HEADACHE Diagnoses NON-DHE #1 Procedures INFUSION HEADACHE Suzan Ivey APRN.MANUFACTURING TECH [address] [place] [address] Neur Headache Main S[address] [place] [id number] Referral IDStatusReasonStart DateExpiration DateVisits RequestedVisits [id number]/21/202412/31/[id number] SpecialtyDiagnoses / ProceduresReferred By ContactReferred To Contact Diagnoses Intractable chronic migraine without aura and without status migrainosus Procedures PROVIDER ORDERED FOLLOW UP OFFICE/OUTPATIENT [facility] 60 MINUTES Sagar Barth APRN.MANUFACTURING TECH [address] [place] [address] Referral IDStatusReasonStart DateExpiration DateVisits RequestedVisits [id number] PCP Requested Referral [id number] / ProceduresReferred By ContactReferred To Contact Diagnoses Intractable chronic migraine without aura and without status migrainosus Procedures INJECTION, EPTINEZUMAB-JJMR, 1 MG Sagar Barth, UMANG.MANUFACTURING TECH [address] [place] [address] Neur Headache Main S[address] [place] [address] Referral IDStatusReasonStart DateExpiration DateVisits RequestedVisits [id number]/31/20241/666577YunlxuPbxypmeoPjjxa Block SpecialtyDiagnoses / ProceduresReferred By ContactReferred To ContactNeurology / HEADACHE Diagnoses NON-DHE #1 Procedures INFUSION HEADACHE Suzan Ivey APRN.MANUFACTURING TECH [address] [place] [address] Neur Headache Main S[address] [place] [address] ReasonCommentsFuture AppointmentNew [place], [place], AnyReasonCommentsMigraineseen at [facility] yesterday for Migrane and D & C for miscarrageReasonCommentsNew Patient ReasonCommentsOrdersReasonCommentsSeizuresFollow UpReasonCommentsMigrainex 2 week lasts up to 4 days light sensitivity, sees silver dots looks like stars. Goes into convulsions during migraines. No meds for migraines has ever worked. ReasonCommentsAppointmentinfusionSpecialtyDiagnoses / ProceduresReferred By ContactReferred To ContactNeurology / HEADACHE Diagnoses DHE Procedures INFUSION HEADACHE Abdifatah Brady MD [address] [place] [address] Neur Headache Main S[address] [place] [address] Referral IDStatusReasonStart DateExpiration DateVisits RequestedVisits [id number]/8/20238/628711KvaxpiZeshoaotVaghmtv MigraineReason CommentsChronic MigraineReasonCommentsInsurance AuthorizationZomig 5MG nasal sprayReasonCommentsInfusionSpecialtyDiagnoses / ProceduresReferred By Contact Referred To ContactNeurology / HEADACHE Diagnoses POSSIBLE DHE/WAITING FOR ORDERS Procedures INFUSION HEADACHE Self Neur Headache Main S[address] [place] [address] Referral IDStatusReasonStart DateExpiration DateVisits RequestedVisits [id number]/21/202312/[id number] DateCommentsRefill Gknjuoz7212/09/2022ReasonOnset DateCommentsRefill Dqwutqm6112/13/2022ReasonComments InfusionHEADACHE INFUSIONSReasonCommentsInsurance AuthorizationAimovig 70MG/ML auto-injectorsReasonCommentsAppointmentPatient currently receiving infusions for headache. She is interested in learning about reboot program. Please schedule patient for evaluation if appropriate to proceed.ReasonCommentsMigraineReason CommentsMigraineSpecialtyDiagnoses / ProceduresReferred By ContactReferred To ContactNeurology / HEADACHE Diagnoses Chronic migraine without aura, intractable, without status migrainosus Migraines Nerve Block Procedures INJECTION AA&/STRD GREATER OCCIPITAL NERVE NERVE BLOCK Sagar Barth, UMANG.MANUFACTURING TECH [address] [place] [address] Tyrone Dolan MD, PhD [address] [facility] [address] [place] [address] Referral IDStatusReasonStart DateExpiration DateVisits RequestedVisits [id number]/8/202412/154815WyxabuSurnb DateCommentsRefill Blqarkp8111/10/2023SpecialtyDiagnoses / ProceduresReferred By ContactReferred To Contact Diagnoses Intractable chronic migraine without aura and without status migrainosus Procedures INJECTION, EPTINEZUMAB-JJMR, 1 MG Sagar Barth, BIKE ASSEMBLER.MANUFACTURING TECH [address] [place] [address] Neur Headache Main S[address] [place] [address] ReasonCommentsFatigueDizzy, shaky, very tired, can't stay awake. [...] for preoperative pulmonary examination Mundo Martinez MD [address] [place] [address] Phone: tel: fax: Jefry Hills MD [address], [address] [address] Phone: tel: fax: Referral IDStatusReasonStart DateExpiration DateVisits RequestedVisits [id number] Review Specialty Services Required [id number] CheckReasonCommentsFlu SymptomsAbdominal PainSpecialtyDiagnoses / ProceduresReferred By ContactReferred To Contact Diagnoses Sepsis ([facility]) Abdominal wall cellulitis [facility] - Emergency Department [address] [facility] [place] [place] [address] Phone: tel: fax: Referral IDStatusReasonStart DateExpiration DateVisits RequestedVisits [id number] Women VisitReasonCommentsPost-op2 week post-opReasonCommentsEstablish CareReasonCommentsMigraineChronic MigraineReason CommentsInsurance AuthorizationubrelvyReasonCommentsFollow-upReasonCommentssinus infectionReasonOnset DateCommentsMed Kqmejz5505/24/2024ReasonOnset DateComments Refill Siowmvk7805/31/2024ReasonCommentsFatigueReasonCommentsMed Change Request ReasonCommentsVaginitis/Bacterial VaginosisReasonCommentsInfusionHeadache infusion schedulingReasonCommentsEye PainSpecialtyDiagnoses / ProceduresReferred By ContactReferred To ContactNeurology / HEADACHE Diagnoses NON-DHE INFUSION Procedures DEHYDROERGOTAMINE INJECTION INFUSION HEADACHE [facility] [address] [place] [address] Phone: tel:70 Neurology [address] [place] [address] Phone: tel: fax: Referral IDStatusReasonStart DateExpiration DateVisits RequestedVisits [id number]/13/202512/[id number]t AuthorizationZavzpret 10MG/ACT solutionZavzpret 10MG/ACT solutionReasonOnset DateCommentsGenetic Testing Prior Authorization Ifprftr0806/25/2024ReasonComments Discuss HormonesReasonCommentsNasal CongestionReasonCommentsAnnual ExamObesity ReasonOnset DateCommentsSleep Lab12/12/2024omp [...] 120mg/24 hours. * 1159 (Given - Provider: Fredi Lowe [...] needed per OBGYN) lidocaine-EPINEPHrine (XYLOCAINE W/EPI) 1 %-1:370217 injection 30 mL (COMPLETED) 30 mL, intradermal, [...] RN) * 2129 (Stop Bag - Provider: oL Peres RN) Medication Order50 acetaminophen (TYLENOL EXTRA [...] * 1525 (Given - Provider: Lam[facility] Carrington [facility]) iohexoL (OMNIPAQUE) 300 mg iodine/mL [...] section and content) DATE CREATED AUTHOR 12/26/2020 [facility] DATE CREATED AUTHOR AUTHOR'S ORGANIZ ATION 10/25/2021 [facility] DATE CREATED AUTHOR AUTHOR'S ORGANIZ ATION 05/26/2022 [facility] DATE CREATED AUTHOR AUTHOR'S ORGANIZ ATION 08/02/2022 [facility] DATE CREATED AUTHOR AUTHOR'S ORGANIZ ATION 07/20/2024 [facility] DATE CREATED AUTHOR AUTHOR'S ORGANIZ ATION 09/07/2024 [facility] DATE CREATED AUTHOR AUTHOR'S ORGANIZ ATION 12/08/2024 [facility] DATE CREATED AUTHOR AUTHOR'S ORGANIZ ATION 12/18/2024 [facility] Ordered Prescriptions (unrec ognized section and content) PrescriptionSigDispensedRefillsStart DateEnd Date lamoTRIgine (LAMICTAL) 25 MG tablet Take 2 tablets by mouth daily 30 tablet Care Teams (unrecognized sec tion and content) Team MemberRelationshipSpecialtyStart DateEnd Date Derik Weber, BIKE ASSEMBLER - MANUFACTURING TECH [address] [place] [address] PCP - GeneralNurse Qsznsbwyvkqd89/4/21Team MemberRelationshipSpecialtyStart Date End Date Abdifatah Brady (Historical) [...] Blair MD [address] [place] [address] PCP - GeneralFamily Medicine03/14/23Team MemberRelationshipSpecialtyStart DateEnd Date Abdifatah Brady (Historical) PCP - General05/21/13Team MemberRelationshipSpecialtyStart DateEnd Date Lamont Blair MD [address] [place] [address] PCP - GeneralFamily Medicine03/14/23Team MemberRelationshipSpecialtyStart DateEnd Date Lamont Blair MD [address] [place] [address] PCP - GeneralFamily Medicine03/14/23Team MemberRelationshipSpecialtyStart DateEnd Date Abdifatah Brady (Historical) PCP - General05/21/13Team MemberRelationshipSpecialtyStart DateEnd Date Abdifatah Brady (Historical) PCP - General05/21/13Team MemberRelationshipSpecialtyStart DateEnd Date Lamont Blair MD [address] [place] [address] PCP - GeneralFamily Medicine03/14/23Team MemberRelationshipSpecialtyStart DateEnd Date Jose Antonio Abdifatah Lynn (Historical) PCP - General05/21/13Team MemberRelationshipSpecialtyStart DateEnd Date Lamont Blair MD [address] [place] [address] PCP - GeneralFamily Medicine03/14/23Team MemberRelationshipSpecialtyStart DateEnd Date Lamont Blair MD [address] [place] [address] PCP - GeneralFamily Medicine03/14/23Team MemberRelationshipSpecialtyStart DateEnd Date Lamont Blair MD [address] [place] [address] PCP - GeneralFamily Medicine03/14/23Team MemberRelationshipSpecialtyStart DateEnd Date Lamont Blair MD [address] [place] [address] PCP - GeneralFamily Medicine03/14/23Team MemberRelationshipSpecialtyStart DateEnd Date Lamont Blari MD [address] [place] [address] PCP - GeneralFamily Medicine03/14/23Team MemberRelationshipSpecialtyStart DateEnd Date Lamont Blair MD [address] [place] [address] PCP - GeneralFamily Medicine03/14/23Team MemberRelationshipSpecialtyStart DateEnd Date Lamont Blair MD [address] [place] [address] PCP - GeneralFamily Medicine03/14/23Team MemberRelationshipSpecialtyStart DateEnd Date Lamont Blair MD [address] [place] [address] PCP - GeneralFamily Medicine03/14/23Team MemberRelationshipSpecialtyStart DateEnd Date Lamont Blair MD [address] [place] [address] PCP - GeneralFamily Medicine03/14/23Team MemberRelationshipSpecialtyStart DateEnd Date Lamont Blair MD [address] [place] [address] PCP - GeneralFamily Medicine03/14/23Team MemberRelationshipSpecialtyStart DateEnd Date Lamont Blair MD [address] [place] [address] PCP - GeneralFamily Medicine03/14/23Team MemberRelationshipSpecialtyStart DateEnd Date Lamont Blair MD [address] [place] [address] PCP - GeneralFamily Medicine03/14/23Team MemberRelationshipSpecialtyStart DateEnd Date Lamont Blair MD [address] [place] [address] PCP - GeneralFamily Medicine03/14/23Team MemberRelationshipSpecialtyStart DateEnd Date Lamont Blair MD [address] [place] [address] PCP - GeneralFamily Medicine03/14/23Team MemberRelationshipSpecialtyStart DateEnd Date [...] Corine Gold MD [address] [place] [address] PCP - GeneralInternal Medicine03/25/24Team MemberRelationshipSpecialtyStart Date End Date Corine Gold MD [address], [place] [address] PCP - GeneralInternal Medicine03/25/24Team MemberRelationshipSpecialtyStart Date End Date Corine Gold MD [address], [place] [address] PCP - [facility]03/25/24Team MemberRelationshipSpecialtyStart Date End Date Corine Gold MD [address] [place] [address] PCP - GeneralInternal Medicine03/25/24Team MemberRelationshipSpecialtyStart Date End Date Lamont Blair MD [facility] [place] [address] PCP - GeneralFamily Medicine03/14/23Team MemberRelationshipSpecialtyStart DateEnd Date Corine Gold MD [address] [place] [address] PCP - GeneralInternal Medicine03/25/24Team MemberRelationshipSpecialtyStart Date End Date Lamont Blair MD [address] [place] [address] PCP - [facility]03/14/23am MemberRelationshipSpecialtyStart DateEnd Date Lamont Blair MD [address] [place] [address] PCP - [facility]03/14/23am MemberRelationshipSpecialtyStart DateEnd Date Corine Gold MD [address], [place] [address] [facility]03/25/24 MemberRelationshipSpecialtyStart Date End Date Corine Gold MD [address], [place] [address] [facility]03/25/24am MemberRelationshipSpecialtyStart Date End Date Corine Gold MD [address] [place] [address] [facility]03/25/24am MemberRelationshipSpecialtyStart Date End Date Corine Gold MD [address] [place] [address] [facility]03/25/24Team MemberRelationshipSpecialtyStart Date End Date Corine Gold MD [address] [place] [address] PCP - GeneralInternal Medicine03/25/24am MemberRelationshipSpecialtyStart Date End Date Corine Gold MD [address], [place] [address] PCP - GeneralInternal Medicine03/25/24am MemberRelationshipSpecialtyStart Date End Date Corine Gold MD [address], [place] [address] PCP - [facility]03/25/24 MemberRelationshipSpecialtyStart Date End Date Corine Gold MD [address], [place] [address] PCP - [facility]03/25/24 MemberRelationshipSpecialtyStart Date End Date Corine Gold MD [address], [address] [place] [address] PCP - [facility]03/25/24am MemberRelationshipSpecialtyStart Date End Date Corine Gold MD [address], [address] [place] [address] PCP - GeneralInternal Medicine03/25/24am MemberRelationshipSpecialtyStart Date End Date Corine Gold MD [address], [place] [address] PCP - GeneralInternal Medicine03/25/24Team MemberRelationshipSpecialtyStart Date End Date Abdifatah Brady (Historical) PCP - General05/21/13Team MemberRelationshipSpecialtyStart DateEnd Date Corine Gold MD [address] [place] [address] PCP - GeneralInternal Medicine03/25/24Team MemberRelationshipSpecialtyStart Date End Date Corine Gold MD [address] [place] [address] PCP - [facility]03/25/24am MemberRelationshipSpecialtyStart Date End Date Unallocated, Noms MD Anoop [address] [place] [address] PCP - [facility]04/22/24Team MemberRelationshipSpecialtyStart DateEnd Date Unallocated, Noms MD Anoop [address] [place] [address] PCP - [facility]04/22/24 MemberRelationshipSpecialtyStart DateEnd Date Corine Gold MD [address] [place] [address] PCP - [facility]06/11/24Team MemberRelationshipSpecialtyStart DateEnd Date Corine Gold MD [address] [place] [address] PCP - [facility]03/25/24Team MemberRelationshipSpecialtyStart Date End Date Corine Gold MD [address] [place] [address] PCP - [facility]06/11/24Team MemberRelationshipSpecialtyStart DateEnd Date Abdifatah Brady (Historical) PCP - General05/21/13am MemberRelationshipSpecialtyStart DateEnd Date Abdifatah Brady (Historical) PCP - General05/21/13am MemberRelationshipSpecialtyStart DateEnd Date Corine Gold MD [address], [place] [address] PCP - GeneralInternal Medicine03/25/24Team MemberRelationshipSpecialtyStart Date End Date Corine Gold MD [address], [address] [place] [address] PCP - [facility]03/25/24Te MemberRelationshipSpecialtyStart Date End Date Corine Gold MD [address], [place] [address] PCP - [facility]03/25/24 MemberRelationshipSpecialtyStart Date End Date Corine Godl MD [address], [place] [address] PCP - GeneralInternal Medicine03/25/24Team MemberRelationshipSpecialtyStart Date End Date Corine Gold MD [address], [place] [address] PCP - GeneralInternal Medicine03/25/24am MemberRelationshipSpecialtyStart Date End Date Lamont Blair MD PCP - [facility]/14/ Unallocated, Arlen Davalos MD [address] [place] [address] PCP - GeneralFaialy Medicine Lamont Blair MD [address] [place] [address] PCP - [facility]05/21/2510Team MemberRelationshipSpecialtyStart Date End Date Corine Gold MD [address] [facility] [address] [place], [place] [address] PCP - GeneralInternal Medicine03/25/24 Inactive Administered Medications [...] and Hematology/Oncology 4) Eclampsia or Preeclampsia New Bag/Syringe/Pqurbq7104/12/2023 12:24 PM EST2 g280 mL/hr methocarbamol iv infusion 1,000 mg in NaCl 0.9% 100 mL (ROBAXIN) 1,000 mg, INTRAVENOUS, Administer over 30 Minutes, ONCE, 1 dose, On Mon04/12/23 at 1130, AdministerIV while in recumbent position. Maintain position for at least 10-15 minutes following infusion. New Bag/Syringe/Ldeibg1604/12/2023 11:50 AM EST1,000 mg NaCl 0.9% 1,000 mL iv bolus 1,000 mL, INTRAVENOUS, at 999 mL/hr, Administer over 1 Hours, ONCE, 1 dose, On Mon04/12/23 at 1130 New Bag/Syringe/Hzygwq7004/12/2023 11:30 AM EST1,000 mL999 mL/hr promethazine 25 [...] and Hematology/Oncology 4) Eclampsia or Preeclampsia New Bag/Syringe/Gageof3004/13/2023 9:46 AM EST2 g250 mL/hr methocarbamol iv infusion 1,000 mg in NaCl 0.9% 100 mL (ROBAXIN) 1,000 mg, INTRAVENOUS, Administer over 30 Minutes, ONCE, 1 dose, On Meg 04/13/23 at 0830, AdministerIV while in recumbent position. Maintain position for at least 10-15 minutes following infusion. New Bag/Syringe/Srcaok0604/13/2023 9:12 AM EST1,000 mg NaCl 0.9% 1,000 mL iv bolus 1,000 mL, INTRAVENOUS, at 999 mL/hr, Administer over 1 Hours, ONCE, 1 dose, On Mon04/13/23 at 0830 New Bag/Syringe/Cvripz6504/13/2023 8:53 AM EST1,000 mL999 mL/hr promethazine 25 [...] 0928,Sedation/Dystonia/Akathisia/Anxiety 3rd line Given04/14/2023 9:28 AM EST25 pfJouon8804/14/2023 8:46 AM EST25 mg keTORolac 30 mg [...] and Hematology/Oncology 4) Eclampsia or Preeclampsia New Bag/Syringe/Sozglw7304/14/2023 10:07 AM EST2 g250 mL/hr methocarbamol iv infusion 1,000 mg in NaCl 0.9% 100 mL (ROBAXIN) 1,000 mg, INTRAVENOUS, Administer over 30 Minutes, ONCE, 1 dose, On Mon04/14/23 at 0830, AdministerIV while in recumbent position. Maintain position for at least 10-15 minutes following infusion. Zjfzwytlx88/23/2024 9:30 AM ESTNew Bag/Syringe/Sktuub0804/14/2023 8:53 AM EST1,000 mg NaCl 0.9% 1,000 mL iv bolus 1,000 mL, INTRAVENOUS, at 999 mL/hr, Administer over 1 Hours, ONCE, 1 dose, On Mon04/14/23 at 0830 Oogduhzdg69/23/2024 9:30 AM MTP455 mL/hrNew Bag/Syringe/Oleatn1704/14/2023 8:53 AM EST1,000 mL999 mL/hr prochlorperazine 10 [...] BE BASED ON THE PRIMARY CLINICAL RECORDS. [employer] [facility]. provides no warranty or guarantee of the accuracy or completeness of information in this document.
[2024-12-29] MEDS: KETOROLAC TROMETHAMINE 30 MG/ML VIAL IVP (14:10)
[2024-12-29] MEDS: 0.9 % SODIUM CHLORIDE 1,000 ML 1000 ML IV (14:11)
[2024-12-29] MEDS: MAGNESIUM SULFATE IN WATER 2 GM/50 ML PREMIX IV (14:11)
[2024-12-29] MEDS: DIPHENHYDRAMINE HCL 50 MG/ML VIAL IVP (14:42)
[2024-12-29] MEDS: DIAZEPAM 10 MG/2 ML SYRINGE 5 MG IV (14:42)
[2024-12-29 16:30] LABS: Hematocrit 36.7 % (36.0-48.0); Hemoglobin 12.5 g/dL (12.0-16.0); Immature Granulocytes Abs Auto 0.02 10^3/uL (0.00-0.03); Immature Granulocytes Pct Auto 0.3 % (0.0-0.5); Lymphocytes Absolute Auto 1.6 10^3/uL (1.2-3.8); Mean Corpuscular HGB Conc 34.1 g/dL (29.9-35.2); Mean Corpuscular Hemoglobin 29.5 pg (26.7-34.0); Mean Corpuscular Volume 86.6 fL (81.0-99.0); Platelet Count 199 10^3/uL (150-450); Red Blood Count 4.24 10^6/uL (4.20-5.40); White Blood Count 6.6 10^3/uL (4.0-11.0)
[2024-12-29] MEDS: HYDROMORPHONE HCL 0.5 MG/0.5 ML SYRINGE IV (18:25)
--- NOTE | 2024-12-29 19:45 | ECG_ITS ---
[facility] Test Date: 2024-12-29 Pat Name: MARGARET PLATT Department: Room: - Gender: Female Silver Miner: : 1995 Requested By: [id number] Order Number: [id number] Reading MD: NUVIA ESTRADA M.D. Measurements Intervals Massey Rate: 96 P: 43 PA: 142 QRS: 82 QRSD: 74 T: 40 QT: 334 QTc: 387 Interpretive Statements 1100 Sinus rhythm 9110 normal ECG Compared to ECG 09/23/2024 20:53:06 No significant changes Electronically Signed On 12-29-2024 22:10:54 EST by NUVIA ESTRADA M.D.
--- NOTE | 2024-12-30 07:14 | ED_ITS ---
HPI HPI - General Adult General Chief complaint: Seizure Stated complaint: MIGRAINE Time Seen by Provider: 12/29/24 13:06 Source: patient Mode of arrival: Wheelchair History of Present Illness HPI narrative: Patient is a 29-year-old female, history significant for chronic migraines on Vyepti infusions, presenting to the emergency department for evaluation of a headache. Patient states this feels like a typical migraine, however her home medications have not worked like they typically do. She said pain has been going on for the last few days. She had no associated nausea or vomiting. She denies any change in the characteristics of her headache. No history of trauma. No neck pain or stiffness. No fevers or chills. No chest pain or shortness of breath. Related Data Home Medications ?Medication ?Instructions ?Recorded ?Confirmed diazepam 10 mg tablet 5 mg PO QID PRN seizures 09/09/24 epinephrine 0.3 mg/0.3 mL 0.3 mg IM Q10M PRN anaphylax is 07/20/22 09/09/24 injection, auto-injector diphenhydramine HCl 25 mg capsule 75 mg PO Q6H PRN sweta giovany headache 01/26/23 09/09/24 (Benadryl) albuterol sulfate 90 mcg/actuation 2 puff inhalation Q 4H PRN 08/16/23 08/16/24 aerosol inhaler shortness of breath or wheez ing magnesium oxide 400 mg (241.3 mg 400 mg PO .qhs 09/09/24 magnesium) tablet zolmitriptan 5 mg nasal spray 1 spray intranasal Q2H P RN headache 08/16/23 09/09/24 amitriptyline 100 mg tablet 50 mg PO DAILY 07/26/24 Previous Rx's ?Medication ?Instructions ?Recorded amoxicillin 500 mg capsule 500 mg PO TID 10 days #30 c aps 09/24/24 promethazine 25 mg tablet 25 mg PO Q6H PRN nausea and 12/29/24 vomiting #14 tabs tizanidine 4 mg tablet 2 mg (1/2 x 4 mg) PO Q12H OK N 12/29/24 muscle spasticity #10 tabs Allergies Allergy/AdvReac Type Severity Reaction Status Date / Time dihydroergotamine Allergy Unknown Hives Verified 09/23/24 20:33 haloperidol (From Haldol) Allergy Unknown Hives Verified 12/01/24 03:46 vortioxetine Allergy Unknown Hives Verified 09/23/24 20:33 buspirone Allergy Hives Verified 09/23/24 20:33 carbamazepine Allergy Unknown Verified 09/23/24 20:33 levetiracetam (From Keppra) Allergy ITCHING Verified 09/23/24 20:33 azithromycin (From Zithromax) AdvReac Intermediate Hives Verified 09/23/24 20:33 bee venom protein (honey bee) AdvReac Intermediate Hives Verified 09/23/24 20:33 metoclopramide (From Reglan) AdvReac Intermediate panic Verified 09/23/24 20:33 adhesive tape AdvReac Mild Rash Verified 09/23/24 20:33 cephalexin (From Keflex) AdvReac Mild Hives Verified 09/23/24 20:33 dextromethorphan (From AdvReac Mild Unknown Verified 09/23/24 20:33 [place] DM) pyrilamine (From [place] DM) AdvReac Mild Unknown Verified 09/23/24 20:33 prochlorperazine (From AdvReac Anxiety Verified 09/23/24 20:33 Compazine) propranolol AdvReac Hives Verified 09/23/24 20:33 Opioid HPI Opioid Management Most Recent Opioid Data: Last Pain Scale 10 12/01/24, 03:43 Last MAR Pain Assessment 12/29/24, 18:25 Last ORT Total Score 0 08/16/23, 14:51 Last ORT Risk Category Low Risk 08/16/23, 14:51 Ur Phencyclidine Scrn, (NEGATIVE) Negative , 15:15 Review of Systems ROS Status of ROS 10 or more systems reviewed and unremark able except as noted in history and below [facility] Medical History (Updated 12/29/24 @ 15:31 by David Monterroso DO) Chronic pain disorder ?G89.4 - Chronic pain syndrome (ICD-10) Migraine ?G43.909 - Migraine, unspecified, not intractable, without status migrainosus (ICD-10) Seizure disorder ?G40.909 - Epilepsy, unspecified, not intractable, without status epilepticus (ICD-10) Bipolar disorder ?F31.9 - Bipolar disorder, unspecified (ICD-10) Pelvic pain ?R10.2 - Pelvic and perineal pain (ICD-10) Bilateral occipital neuralgia ?M54.81 - Occipital neuralgia (ICD-10) Combative behavior ?R46.89 - Other symptoms and signs involving appearance and behavior (ICD-10) PCOS (polycystic ovarian syndrome) ?E28.2 - Polycystic ovarian syndrome (ICD-10) Mitral valve prolapse ?I34.1 - Nonrheumatic mitral (valve) prolapse (ICD-10) GERD (gastroesophageal reflux disease) ?K21.9 - Gastro-esophageal reflux disease without esophagitis (ICD-10) Depression ?F32.A - Depression, unspecified (ICD-10) Blood in urine ?R31.9 - Hematuria, unspecified (ICD-10) Acne ?L70.9 - Acne, unspecified (ICD-10) Dyspareunia Brain mass ?G93.89 - Other specified disorders of brain (ICD-10) Kidney stones ?N20.0 - Calculus of kidney (ICD-10) COVID-19 ?U07.1 - COVID-19 (ICD-10) Bronchitis ?J40 - Bronchitis, not specified as acute or chronic (ICD-10) Asthma ?J45.909 - Unspecified asthma, uncomplicated (ICD-10) Stress incontinence ?N39.3 - Stress incontinence (female) (male) (ICD-10) Dysuria ?R30.0 - Dysuria (ICD-10) Anxiety ?F41.9 - Anxiety disorder, unspecified (ICD-10) Surgical History H/O laparoscopy (07/21/22) ?Z98.890 - Other specified postprocedural states (ICD-10) S/P RAVI-BSO ?Z90.710 - Acquired absence of both cervix and uterus (ICD-10) ?Z90.722 - Acquired absence of ovaries, bilateral (ICD-10) ?Z90.79 - Acquired absence of other genital organ(s) (ICD-10) Hx laparoscopic cholecystectomy ?Z90.49 - Acquired absence of other specified parts of digestive tract (ICD- 10) H/O: ?Z98.891 - History of uterine scar from previous surgery (ICD-10) History of appendectomy ?Z90.49 - Acquired absence of other specified parts of digestive tract (ICD- 10) Family History Other Acid reflux Acute renal disease Afib Chromosomal disorder Delayed developmental milestones Diabetes Family history of hypertension High cholesterol Neuro-irritability due to autonomic dysfunction 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 EYES: Sclerae white. EARS, NOSE, THROAT: Moist oral mucosa. RESPIRATORY: Nonlabored respirations. CARDIOVASCULAR: Normal rate and regular rhythm. There is no S3, S4, murmur, rub. GASTROINTESTINAL: Abdomen is nondistended. MUSCULOSKELETAL: No peripheral edema. No nuchal rigidity, ranges neck fully. NEUROLOGIC: Patient is awake and alert. Moving all extremities equally. Facies were symmetrical. Constitutional Vital Signs, click to edit/add: Last Vital Signs Temp 98.3 F 12/29/24 13:07 Pulse 91 H 12/29/24 15:10 Resp 12 12/29/24 15:10 BP 128/76 12/29/24 15:00 Pulse Ox 95 12/29/24 13:40 O2 Del Method Room Air 12/29/24 13:07 Course Vital Signs Vital signs: Vital Signs Temperature 98.3 F 12/29/24 13:07 Pulse Rate 100 H 12/29/24 13:07 Respiratory Rate 18 12/29/24 13:07 Blood Pressure 141/103 H 12/29/24 13:07 Pulse Oximetry 94 L 12/29/24 13:07 Oxygen Delivery Method Room Air 12/29/24 13:07 Temperature 98.3 F 12/29/24 13:07 Pulse Rate 91 H 12/29/24 15:10 Respiratory Rate 12 12/29/24 15:10 Blood Pressure 128/76 12/29/24 15:00 Pulse Oximetry 95 12/29/24 13:40 Oxygen Delivery Method Room Air 12/29/24 13:07 Medical Decision Making MDM Narrative Medical decision making narrative: Patient is a 29-year-old female, history significant for chronic migraines on Vyepti infusions, presenting to the emergency department for evaluation of a mi graine for the last few days. Vital signs on arrival are within normal limits. She is afebrile and hemodynamically stable. Examination as outlined above. Differential diagnosis includes acute on chronic migraines. No fevers, neck pain, or stiffness to suggest meningitis. IV was established under ultrasound guidance. She was given a migraine cocktail with IV Zofran, IV Benadryl, IV magnesium sulfate, IV Toradol, IV Dilaudid, and 1 L bolus normal saline. CBC was unremarkable, no leukocytosis, anemia, thrombocytopenia. On reevaluation, patient feels symptomatically improved. I do believe the patient is stable for discharge. Patient's presentation is most likely consistent with acute on chronic migraines. They were instructed to follow up with her neurologist. Return precautions were given including any new or worsening symptoms. Patient understands and agrees to the plan. FINAL IMPRESSION: Acute on chronic migraine DISPOSITION: Discharged home CONDITION: Good Medical Records Medical records reviewed: Yes I reviewed the patient's medical records Lab Data Lab results reviewed: Yes I reviewed the patient's lab results Labs: Lab Results 12/29/24 Range/Units 16:05 WBC 6.6 (4.0-11.0) 10^3/uL RBC 4.24 (4.20-5.40) 10^6/uL Hgb 12.5 (12.0-16.0) g/dL Hct 36.7 (36.0-48.0) % MCV 86.6 (81.0-99.0) fL MCH 29.5 (26.7-34.0) pg MCHC 34.1 (29.9-35.2) g/dL RDW 12.6 (11.0-15.0) % Plt Count 199 (150-450) 10^3/uL MPV 9.7 (9.5-13.5) fL Neut % (Auto) 60.6 (43.0-75.0) % Lymph % (Auto) 24.1 (20.5-60.0) % [place] % (Auto) 6.9 (1.7-12.0) % Eos % (Auto) 7.8 H (0.9-7.0) % Baso % (Auto) 0.3 (0.2-2.0) % Neut # (Auto) 4.0 (1.4-6.5) 10^3/uL Lymph # (Auto) 1.6 (1.2-3.8) 10^3/uL [place] # (Auto) 0.5 (0.3-0.8) 10^3/uL Eos # (Auto) 0.5 (0.0-0.7) 10^3/uL Baso # (Auto) 0.0 (0.0-0.1) 10^3/uL Abs Immat Gran (auto) 0.02 (0.00-0.03) 10^3/uL Imm/Tot Granulo (auto) 0.3 (0.0-0.5) % Discharge Plan Discharge Chief Complaint: Seizure Clinical Impression: Migraine headache Patient Disposition: Home, Self-Care Time of Disposition Decision: 15:31 Condition: Fair Mode of Transportation: Private Vehicle Prescriptions / Home Meds: New promethazine 25 mg tablet 25 mg PO Q6H PRN (Reason: nausea and vomiting) Qty: 14 0RF tizanidine 4 mg tablet 2 mg PO Q12H PRN (Reason: muscle spasticity) Qty: 10 0RF No Action diazepam 10 mg tablet 5 mg PO QID PRN (Reason: seizures) epinephrine 0.3 mg/0.3 mL auto-injector 0.3 mg IM Q10M PRN (Reason: anaphylaxis) Rx Instructions: for 2 doses albuterol sulfate 90 mcg/actuation HFA aerosol inhaler 2 puff INHALATION Q4H PRN (Reason: shortness of breath or wheezing) magnesium oxide 400 mg (241.3 mg magnesium) tablet 400 mg PO .qhs zolmitriptan 5 mg spray,non-aerosol 1 spray INTRANASAL Q2H PRN (Reason: headache) Rx Instructions: May repeat once if needed after =2 hours diphenhydramine HCl [Benadryl] 25 mg capsule 75 mg PO Q6H PRN (Reason: migraine headache) amitriptyline 100 mg tablet 50 mg PO DAILY amoxicillin 500 mg capsule 500 mg PO TID 10 Days Qty: 30 0RF Print Language: Nigerian Instructions: Migraine Headache (ED) Referrals: Corine Gold ND [Primary Care Provider] - 1 week Discharge Date/Time: 12/29/24 18:40
== END 2024-12-29 18:40 | disposition home or self-care (01) ==
PROVIDERS: Emergency Provider Student in an Organized Health Care Education/Training Program; PCP Student in an Organized Health Care Education/Training Program
DX: G43.909 Migraine, unspecified, not intractable, without status migrainosus (principal)
CPT/HCPCS: 36415; 80048; 83605; 84703; 85025; 93005; 96365; 96375; 96376; 99285; J1171; J1200; J1885; J2405; J3360; J3475

== ENCOUNTER 2025-02-01 08:51 | Observation (INO) | payer OTHER, SELFPAY ==
[2025-02-01] VITALS (49 sets, daily range): BP systolic 110–138; BP diastolic 63–86; PULSE 89–113; TEMP 36.5–36.8; O2SAT 90–98; BMI 54.6; BMI 55.2
--- NOTE | 2025-02-01 09:16 | XR_ITS ---
[place] [id number] Patient Name: MARGARET PLATT MRN: [id number] date: 1995 Sex: F Assigned Patient Location: ER Current Patient Location: ED.MAIN Accession/Order Number: [id number] Exam Date: 02/01/2025 09:40 Report Date: 02/01/2025 10:30 At the request of: SUKHDEEP DOCKERY MD Procedure: XR chest 1V XR chest 1V 02/01/2025 9:43 AM SIGNS AND SYMPTOMS: ^SOB ^Y PROTOCOL: Frontal radiograph of the chest COMPARISON: 12/11/2023 FINDINGS: The trachea is midline. The heart and mediastinal structures are within normal limits. The lung parenchyma is clear. The bony thorax is intact. XR/XR chest 1V IMPRESSION: No acute cardiopulmonary pathology. Impression dictated by: Mic Cheatham M.D. 02/01/2025 10:30 AM Dictation Location: [place] [address] Electronically authenticated by: [id number] Y Date: 02/01/2025 10:30
--- NOTE | 2025-02-01 09:20 | ECG_ITS ---
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 Measurements Intervals [place] Rate: 106 P: 64 IA: 148 QRS: 84 QRSD: 80 T: 71 QT: 328 QTc: 390 Interpretive Statements 1120 Sinus tachycardia Otherwise normal ECG Compared to ECG 12/29/2024 13:19:35 Heart rate has increased by 10 BPM Electronically Signed On 02-02-2025 10:18:07 EST by NUVIA ESTRADA M.D.
--- NOTE | 2025-02-01 09:20 | ED.GENADUL1 ---
HPI HPI - General Adult General Chief complaint: Shortness of Breath/Dyspnea Stated complaint: SOB Time Seen by Provider: 02/01/25 09:12 History of Present Illness HPI narrative: 29-year-old female presented to the emergency department for difficulty breathing. She has been this way for a few days. She was seen in urgent care center yesterday and had COVID and influenza test that were negative. She is prescribed doxycycline and prednisone. She has been using her inhaler at home. She states she does not feel any better but she is only been on these medications since yesterday. Related Data Home Medications ?Medication ?Instructions ?Recorded ?Confirmed diazepam 10 mg tablet 5 mg PO QID PRN seizures 07/20/22 02/01/25 epinephrine 0.3 mg/0.3 mL 0.3 mg IM Q10M PRN anaphylaxis 07/20/22 02/01/25 injection, auto-injector diphenhydramine HCl 25 mg capsule 75 mg PO Q6H PRN migraine headache 01/26/23 02/01/25 (Benadryl) albuterol sulfate 90 mcg/actuation 2 puff inhalation Q4H PRN 08/16/23 02/01/25 aerosol inhaler shortness of breath or wheezing magnesium oxide 400 mg (241.3 mg 400 mg PO .qhs 08/16/23 02/01/25 magnesium) tablet zolmitriptan 5 mg nasal spray 1 spray intranasal Q2H PRN headache 08/16/23 02/01/25 baclofen 10 mg tablet 10 mg PO BEDTIME 02/01/25 02/01/25 carbamazepine 100 mg 100 mg PO Q12H 02/01/25 02/01/25 tablet,extended release,12 hr desvenlafaxine succinate 50 mg 50 mg PO Q24H 02/01/25 02/01/25 tablet,extended release 24 hr divalproex 500 mg tablet,extended 500 mg PO DAILY 02/01/25 02/01/25 release 24 hr doxycycline monohydrate 100 mg 100 mg PO Q12H 02/01/25 02/01/25 capsule fluocinolone acetonide oil 0.01 % 5 drp otic (ear) DAILY 02/01/25 02/01/25 ear drops mometasone-formoterol HFA 200 2 inh inhalation Q12H 02/01/25 02/01/25 mcg-5 mcg/actuation aerosol inhaler (Dulera) olanzapine 10 mg tablet 10 mg PO DAILY 02/01/25 02/01/25 prednisolone acetate 1 % eye 1 drp ophthalmic (eye) Q8H 02/01/25 02/01/25 drops,suspension prednisone 20 mg tablet 20 mg PO Q12H 02/01/25 02/01/25 ramelteon 8 mg tablet 8 mg PO BEDTIME 02/01/25 02/01/25 scopolamine base 1 mg over 3 days 1 patch transdermal Q72H 02/01/25 02/01/25 transdermal patch Previous Rx's ?Medication ?Instructions ?Recorded promethazine 25 mg tablet 25 mg PO Q6H PRN nausea and 12/29/24 vomiting #14 tabs Allergies Allergy/AdvReac Type Severity Reaction Status Date / Time dihydroergotamine Allergy Unknown Hives Verified 02/01/25 08:59 haloperidol (From Haldol) Allergy Unknown Hives Verified 02/01/25 08:59 vortioxetine Allergy Unknown Hives Verified 02/01/25 08:59 buspirone Allergy Hives Verified 02/01/25 08:59 carbamazepine Allergy Unknown Verified 02/01/25 08:59 levetiracetam (From Keppra) Allergy ITCHING Verified 02/01/25 08:59 azithromycin (From Zithromax) AdvReac Intermediate Hives Verified 02/01/25 08:59 bee venom protein (honey bee) AdvReac Intermediate Hives Verified 02/01/25 08:59 metoclopramide (From Reglan) AdvReac Intermediate panic Verified 02/01/25 08:59 adhesive tape AdvReac Mild Rash Verified 02/01/25 08:59 cephalexin (From Keflex) AdvReac Mild Hives Verified 02/01/25 08:59 dextromethorphan (From AdvReac Mild Unknown Verified 02/01/25 08:59 [place] DM) pyrilamine (From [place] DM) AdvReac Mild Unknown Verified 02/01/25 08:59 prochlorperazine (From AdvReac Anxiety Verified 02/01/25 08:59 Compazine) propranolol AdvReac Hives Verified 02/01/25 08:59 Opioid HPI Opioid Management Most Recent Opioid Data: Last Pain Scale 10 12/01/24, 03:43 Last ORT Total Score 0 08/16/23, 14:51 Last ORT Risk Category Low Risk 08/16/23, 14:51 Ur Phencyclidine Scrn, (NEGATIVE) Negative 08/16/23, 15:15 Review of Systems ROS Narrative A ten point review of systems is negative except as noted above. [facility] Medical History (Updated 02/01/25 @ 12:37 by Wild Kendall MD) Chronic pain disorder ?G89.4 - Chronic pain syndrome (ICD-10) Migraine ?G43.909 - Migraine, unspecified, not intractable, without status migrainosus (ICD-10) Seizure disorder ?G40.909 - Epilepsy, unspecified, not intractable, without status epilepticus (ICD-10) Bipolar disorder ?F31.9 - Bipolar disorder, unspecified (ICD-10) Pelvic pain ?R10.2 - Pelvic and perineal pain (ICD-10) Bilateral occipital neuralgia ?M54.81 - Occipital neuralgia (ICD-10) Combative behavior ?R46.89 - Other symptoms and signs involving appearance and behavior (ICD-10) PCOS (polycystic ovarian syndrome) ?E28.2 - Polycystic ovarian syndrome (ICD-10) Mitral valve prolapse ?I34.1 - Nonrheumatic mitral (valve) prolapse (ICD-10) GERD (gastroesophageal reflux disease) ?K21.9 - Gastro-esophageal reflux disease without esophagitis (ICD-10) Depression ?F32.A - Depression, unspecified (ICD-10) Blood in urine ?R31.9 - Hematuria, unspecified (ICD-10) Acne ?L70.9 - Acne, unspecified (ICD-10) Dyspareunia Brain mass ?G93.89 - Other specified disorders of brain (ICD-10) Kidney stones ?N20.0 - Calculus of kidney (ICD-10) COVID-19 ?U07.1 - COVID-19 (ICD-10) Bronchitis ?J40 - Bronchitis, not specified as acute or chronic (ICD-10) Asthma ?J45.909 - Unspecified asthma, uncomplicated (ICD-10) Stress incontinence ?N39.3 - Stress incontinence (female) (male) (ICD-10) Dysuria ?R30.0 - Dysuria (ICD-10) Anxiety ?F41.9 - Anxiety disorder, unspecified (ICD-10) Surgical History H/O laparoscopy (07/21/22) ?Z98.890 - Other specified postprocedural states (ICD-10) S/P RAVI-BSO ?Z90.710 - Acquired absence of both cervix and uterus (ICD-10) ?Z90.722 - Acquired absence of ovaries, bilateral (ICD-10) ?Z90.79 - Acquired absence of other genital organ(s) (ICD-10) Hx laparoscopic cholecystectomy ?Z90.49 - Acquired absence of other specified parts of digestive tract (ICD-10) H/O: ?Z98.891 - History of uterine scar from previous surgery (ICD-10) History of appendectomy ?Z90.49 - Acquired absence of other specified parts of digestive tract (ICD-10) Family History Other Acid reflux Acute renal disease Afib Chromosomal disorder Delayed developmental milestones Diabetes Family history of hypertension High cholesterol Neuro-irritability due to autonomic dysfunction 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 Skin:Warm, dry, no pallor noted.There is no rash noted. Head:Normocephalic, atraumatic Eye: Normal conjunctiva, no drainage Ears, Nose, Mouth, and Throat: oral mucosa is moist. Nares patent. Cardiovascular:Regular Rate and Rhythm Respiratory:Patient is in no distress, no accessory muscle use, lungs show a few rhonchi bilaterally. Good air movement present Back:non-tender, no CVA tenderness bilaterally to percussion. GI: Soft and nontender Musculoskeletal: The patient has no evidence of calf tenderness, no pitting edema, symmetrical pulses noted bilaterally Neurological:A&O, normal speech Psychiatric:Cooperative Constitutional Vital Signs, click to edit/add: Last Vital Signs Temp 97.7 F 02/01/25 08:59 Pulse 92 H 02/01/25 12:20 Resp 16 02/01/25 12:20 BP 125/86 02/01/25 08:59 Pulse Ox 98 02/01/25 12:20 O2 Del Method Nasal Cannula 02/01/25 10:49 O2 Flow Rate 4 02/01/25 10:49 Course Vital Signs Vital signs: Vital Signs Temperature 97.7 F 02/01/25 08:59 Pulse Rate 109 H 02/01/25 08:59 Respiratory Rate 22 H 02/01/25 08:59 Blood Pressure 125/86 02/01/25 08:59 Pulse Oximetry 94 L 02/01/25 08:59 Oxygen Delivery Method Room Air 02/01/25 08:59 Temperature 97.7 F 02/01/25 08:59 Pulse Rate 92 H 02/01/25 12:20 Respiratory Rate 16 02/01/25 12:20 Blood Pressure 125/86 02/01/25 08:59 Pulse Oximetry 98 02/01/25 12:20 Oxygen Delivery Method Nasal Cannula 02/01/25 10:49 Oxygen Delivery Flow Rate 4 02/01/25 10:49 Medical Decision Making [facility] Narrative Medical decision making narrative: The patient presents with an asthma exacerbation. Her workup including chest x-ray is negative. She does not seem to have any infectious type symptoms. She has been prescribed doxycycline and prednisone yesterday. We discussed discharge versus admission and the patient prefers to be admitted. Findings were discussed thoroughly. She had negative COVID and influenza test yesterday. She was given parenteral Solu-Medrol and multiple aerosol treatments. Differential Diagnosis Differential Diagnosis: Asthma exacerbation, pneumonia, URI Lab Data Lab results reviewed: Yes I reviewed the patient's lab results Labs: Lab Results 02/01/25 02/01/25 Range/Units 11:22 12:20 WBC 12.3 H (4.0-11.0) 10^3/uL RBC 4.28 (4.20-5.40) 10^6/uL Hgb 12.5 (12.0-16.0) g/dL Hct 37.9 (36.0-48.0) % MCV 88.6 (81.0-99.0) fL MCH 29.2 (26.7-34.0) pg MCHC 33.0 (29.9-35.2) g/dL RDW 13.4 (11.0-15.0) % Plt Count 212 (150-450) 10^3/uL MPV 9.3 L (9.5-13.5) fL Neut % (Auto) 86.2 H (43.0-75.0) % Lymph % (Auto) 9.1 L (20.5-60.0) % [place] % (Auto) 2.8 (1.7-12.0) % Eos % (Auto) 0.7 L (0.9-7.0) % Baso % (Auto) 0.3 (0.2-2.0) % Neut # (Auto) 10.6 H (1.4-6.5) 10^3/uL Lymph # (Auto) 1.1 L (1.2-3.8) 10^3/uL [place] # (Auto) 0.3 (0.3-0.8) 10^3/uL Eos # (Auto) 0.1 (0.0-0.7) 10^3/uL Baso # (Auto) 0.0 (0.0-0.1) 10^3/uL Abs Immat Gran (auto) 0.11 H (0.00-0.03) 10^3/uL Imm/Tot Granulo (auto) 0.9 H (0.0-0.5) % Sodium 143 (136-145) mmol/L Potassium 4.5 (3.5-5.1) mmol/L Chloride 105 (98-107) mmol/L Carbon Dioxide 26.5 (21.0-32.0) mmol/L Anion Gap 16.0 BUN 20.0 H (7.0-18.0) mg/dL Creatinine 0.68 (0.55-1.02) mg/dL Est GFR ( Amer) >60 (>=60 mL/min/1.73m^2) Est GFR (Non-Af Amer) >60 (>=60 mL/min/1.73m^2) BUN/Creatinine Ratio 29.4 Glucose 108 H (74-106) mg/dL Calcium 8.8 (8.5-10.1) mg/dL Imaging Data Chest x-ray: Radiologist's impression: ITS Impressions Chest X-Ray 02/01/25 09:16 IMPRESSION: No acute cardiopulmonary pathology. Impression dictated by: Mic Cheatham M.D. 02/01/2025 10:30 AM Dictation Location: [employer] Electronically authenticated by: [id number] Y Date: 02/01/2025 10:30 ECG Data Attestation: I personally reviewed and interpreted this ECG as follows: (EKG on my interpretation shows sinus rhythm with rate of 106 and no acute change) Critical Care Time Critical Care Time Critical Care Time: Yes Total Critical Care Time: 35 Attestation: Due to the high probability of sudden and clinically significant deterioration in the patient's condition he/she required the highest level of my preparedness to intervene urgently I provided critical care time including documentation time, medication orders and management, reevaluation, vital sign assessment, ordering and reviewing of lab tests, ordering and reviewing of x-ray studies, and admission orders. Aggregate critical care time is 35 minutes including only time during which I was engaged in work directly related to his/her care and did not include time spent treating other patients simultaneously. Discharge Plan Discharge Chief Complaint: Shortness of Breath/Dyspnea Clinical Impression: Asthma with acute exacerbation Patient Disposition: Admitted as Observation Time of Disposition Decision: 12:36 Condition: Fair
[2025-02-01] MEDS: ALBUTEROL SULFATE 2.5 MG/3 ML VIAL NEB IH ×4 (09:25→17:43)
[2025-02-01] MEDS: METHYLPREDNISOLONE SOD SUCC PF 125 MG/2 ML VIAL IM (09:26)
--- OUTSIDE RECORDS SUMMARY | 2025-02-01 09:32 | XMS_ITS | Clinical Summary ---
Author Organization [facility] [employer] Address [id number] [address] [place] [address] Care Team Providers Care Shredded Filler Cutter Operator Name Role Phone Corine Gold MD Primary Care Provider [phone] Allergies Active AllergyReactionsCriticalityNoted UldcYxisdbvvZbcmcwecShncMbyoum36/17/2022 Adhesive Tape-Sqoomphkm31/19/2017AmoxicillinHives,ApewlrfoJnev03/21/2025 Amoxicillin-Pot ClavulanateHives,ZqeejtojGppd14/21/2025Bee Venom Protein (Honey Bee)UcprgklrafeMyai40/05/4682NlebhopwwRtwujZdj32/17/2022arbamazepineOther (See Comments)12/24/2020 anxiety XqkyfqbasqzkoVecbg25/23/8487QzrvuidklbjLykhj90/06/2021ProchlorperazineAnxietyLow 12/29/20235201MwvxeqxqmbdsnSufxf87/27/6437LwnqqanraqpmberfLxlyb47/23/2023 DihydroergotamineGI Disturbance,EorwoKosblf84/07/2023 Other Reaction(s): Intolerance Chest tightness, numbness and tingling in bilateral extremities, increased anxiety Eptinezumab-JjmrItching,WigqPhq0205/02/2024 Patient described extreme itching located on her chest and arms (bilaterally). HvpkcbcfajvMghthqbnlagtiq47/05/1288XwnvqheytuTtngn57/19/2017LevetiracetamHives, Nmdixfy6611/11/2022MetoclopramideHives,Other (See Comments)12/24/2020ropranolol HclHives,Other (See Comments)12/24/2020 Migrianes Pyrilamine-GkiqntrqhjbjnvbcYnwax23/12/2023Metoclopramide HclItching,AnxietyLow 12/08/2016 No rash TinjxldvtmkyIrtwv06/17/7145LmrkhqaeeqdpLmmfz83/19/2017 Medications MedicationSigDispense QuantityRefillsLast FilledStart DateEnd DateStatus diazePAM [...] daily as needed for allergies. 90 tablet 1045Active fluticasone propionate (FLONASE) 50 mcg/actuation nasal spray [...] mg total) before bedtime. 120 tablet 5Active omeprazole (PriLOSEC) 40 mg capsule Indications:Gastroesophageal [...] (three) times a day. 30 each 5Active tiotropium bromide (SPIRIVA RESPIMAT) 2.5 mcg/actuation mist Indications:Moderate persistent asthma without complicationInhale 5 mcg in the morning. 4 g 5Active mometasone-formoterol (DULERA) 200-5 mcg/actuation inhaler Indications:Moderate persistent asthma without complicationInhale 2 puffs in the morning and 2 puffs before bedtime. 13 g 5Active xycandvprsz-vykicouof-gdxsothc (TRELEGY ELLIPTA) 200-62.5-25 mcg blister with device Indications:Moderate asthma with acute exacerbation, unspecified whether persistentINHALE 1 PUFF BY MOUTH IN THE MORNING 60 each 5103/11/2024DiscontinuedHospital, Clinic, or Other Facility Administered MedicationOrdered DoseRouteFrequencyStart DateEnd DateStatus diazePAM (VALIUM) tablet 5 mg Indications:Psychogenic nonepileptic seizure5 mgoral2 times daily03/28/2024 Active Active Problems ProblemNoted DateDiagnosed DateGastroesophageal reflux disease without jvcnfpsnose80/28/2025Environmental vpzynvntw41/28/2025Eye infection, bilateral 07/24/2024Ingrown nail of great toe07/24/2024bdominal wall jultybdbkr11/17/2025 Postoperative surgical complication involving genitourinary system associated with genitourinary dfmtgtcqi13/17/2025S/P bilateral salpingo-oophorectomy 03/28/2024hronic migraine without aura without status migrainosus, not agiqmmdbcwn17/05/2023Polycystic ielsjzy2301/24/2023Moderate persistent asthma without fnhiozmvdgya39/09/6611Dvzzgoo05/09/2022epressive tqxconss70/09/2022 Psychogenic nonepileptic xkkfdvp8710/20/2021Migraine with aura and without status migrainosus, not mafacuncjsr04/17/2022ilateral occipital wymrqwfda94/17/2022 Encounter for observation of suspected anomaly not found06/04/2019 Resolved Problems ProblemNoted DateDiagnosed DateResolved DateMild persistent asthma with (acute) pgjoxpyfafzx81ute coughSeizure-like /07/2024LOC (loss of consciousness) Simple partial seizure Encounters DateTypeDepartmentCare ApneDiidreaybin92/22/2025 11:12 AM EST - 01/11/2025 1:43 PM ESTEmergency [facility] [address] [place] [id number] Milad Vee MD Nonintractable headache, unspecified chronicity pattern, unspecified headache type (Primary Dx) Discharge Disposition: Home01/11/20254692Xbpsgl38/20/2025Orders Only [facility] [address] [address] Mariah Peña, Moderate persistent asthma without complication (Primary Dx)12/20/2024 10:00 AM EDTOffice Visit [facility] [address] [place] [address] DonnieaSaba rockwell N, DRESSAGE JUDGE-CASHIER SUPERVISOR Moderate persistent asthma without complication (Primary Dx); Watery eyes; Seasonal allergic rhinitis, unspecified fsmgsed6812/19/2024Orders Only [facility] [address] [address] Mariah Peña, Moderate persistent asthma, unspecified whether oimucitmsex34/28/2025 9:30 AM EDTOffice Visit [facility] [address] [address] Mariah Peña, Moderate persistent asthma without complication (Primary Dx); Gastroesophageal reflux disease without esophagitis; Environmental wvokuyvux21/28/2025Telephone [facility] [address] [place] [address] Heraclio Jovel [facility] Prior Authorization (Dup[employer]ent )12/17/20246644Cqnvti11/23/2025Telephone [facility] - Sleep Disorders [address] [place] [address] Corine Gold MD Sleep Lab (Comp PSG/PAP)12/10/2024 2:30 PM EDTOffice Visit [facility] [address] [place] [address] [place] [address] Corine Gold MD JUAN DAVID (obstructive sleep apnea) (Primary Dx)12/10/2024Telephone [facility] [address] [address] Malia Mason RN 12/10/20249411Dddmfh70/20/2025Refill [facility] [address] [address] Mariah Peña, Moderate asthma with acute exacerbation, unspecified whether persistent 11/24/2024 5:31 PM EDT - 11/25/2024 2:16 AM EDTEmergency [facility] [address] [facility] [place] [address] Cecilio Grant DO Nonintractable headache, unspecified chronicity pattern, unspecified headache type (Primary Dx) Discharge Disposition: Home11/24/20241244Mbstod62/25/2025Travelfrom Last 3 Months Immunizations ImmunizationAdministration DatesNext QngVRgF6909/07/2001DTaP / HIB / IPV03/05/1997 ,07/05/1996,05/06/1996,01/15/1996HPV Mggrjejsitjp94/02/2013,01/20/2012, 11/15/2011Hep B, Adolescent or Hnkhczpew02/05/2003,05/06/1996,1995, 1995IPV09/07/2001Influenza (IM) Preservative Free12/31/2015,11/27/2014, 10/23/2012,11/15/2011Influenza, Injectable, Mdck, Preservative Free, Quad 12/08/2017MMR09/07/2001,03/05/1997Meningococcal PAU4H2611/15/2011Tdap09/21/2015 Zqnbymjcq56/25/2012,10/25/2002 Family History Medical HistoryRelationNameCommentsAnesthesia problemsFatherprolonged emergence Cystic fibrosisFatherOvarian cancerMaternal AuntAnesthesia problemsMother Prolonged emergenceCystic fibrosisMotherRelationNameStatusCommentsFatherAlive Maternal AuntMotherAliveSister 1AliveSister 2AliveSister 3Alive Social History Tobacco UseTypesPacks/DayYears UsedDateSmoking Tobacco: NeverSmokeless Tobacco: Never Tobacco Cessation:Counseling Given: Not Answered Alcohol UseStandard Drinks/WeekCommentsNot Currently0 (1 standard drink = 0.6 oz pure alcohol)[employer] UtilitiesAnswerDate RecordedIn the past 12 months has [...] care, and heating?Not hard at all04/08/2024PHQ-2AnswerDate RecordedTotal Blhqq816PRAPARE - TransportationAnswerDate RecordedIn the past 12 months, [...] a part of a household?No04/08/2024hildcareAnswerDate RecordedChildcareUnknown 08/01/2018EmploymentAnswerDate JrjqmdulKaidsaezdqTvsface71/12/2019Hunger ScreeningAnswerDate RecordedWithin the past 12 months we worried whether our food would run out before we got money to buy more.Never True01/11/2025Within the past 12 months the food we bought just didn't last and we didn't have money to get more.Never True01/11/2025Purpose - LifeAnswerDate RecordedPurpose and direction in ddpkIfsjirx28/12/2021CommentsNoSex and Gender Information ValueDate RecordedSex Assigned at BirthNot on fileLegal LipStjxbu07/06/2015 11:52 AM EDTGender IdentityNot on fileSexual OrientationNot on file Last Filed Vital Signs Vital SignReadingTime TakenCommentsBlood Wsbsqsxu735/8801/11/2025 1:43 PM EST Xaktv08522/22/2025 1:43 PM WSVYwakqixnsqi74.8 ??C (98.2 ??F)01/11/2025 11:16 AM ESTRespiratory Hlme095303/13/2024 1:43 PM ESTOxygen Ltgikdyzdw26%01/11/2025 1:43 PM ESTInhaled Oxygen Concentration--Jssbyr601.4 kg (283 lb)01/11/2025 11:16 AM JGTBnddhl269.4 cm (5')01/11/2025 11:16 AM ESTBody Mass Index55.27103/13/2024 11:16 AM EST Plan of Treatment DateTypeDepartmentCare Team (Latest Contact Info)Czrrzvztjbd96/03/2026 9:45 AM ESTOffice Visit [facility] [address] [phone] Mariah Peña DO [address] [address] Health MaintenanceDue DateLast DoneCommentsInfluenza Tqsimfm4710/21/2024 12/08/2017, 12/31/2015, 11/27/2014, Additional history existsDTaP,Tdap and Td Vaccines (7 - Td or Tdap), 09/07/2001, 03/05/1997, Additional history existsAdult BMI Follow Up PlanDepression Eqmscchrq14dult BMI Pxspqhdsd97Tobacco Bogbxmdwf02Pap IkrvkUwevhmtxyhee21/25/2025 Goals GoalPatient Goal TypeAssociated ProblemsRecent ProgressPatient-Stated?Author home Tamiko Thompson RN Note: Evaluation of progress towards goal: Patient stated goal is to return home with [facility] for assistance with wound care Medical Devices Not on file Procedures Procedure NamePriorityDate/TimeAssociated DiagnosisCommentsCT BRAIN WO CONTSTAT 11/24/2024 9:06 PM EDT ECG 12-UAHWUAOE53/05/2025 7:08 PM EDTCOMPREHENSIVE METABOLIC UALRULPEZ96/05/2025 7:04 PM EDT CBC WITH AUTO EJAQVKDCIVQVVMCT15/05/2025 7:04 PM EDT from Last 3 Months [...] AtPathologist SignatureWBC8.34 - 11 x10E9/L1 7:27 PM [facility]ORATORYRBC Count4.55 3.8 - 5.2 X10E12/L1 7:27 PM [facility] Ycruppagsi98.311.7 - 15.5 g/dL11/24/2024 7:27 PM [facility] KVQQKGJCMQRrtuwtnatl79.035 - 47 %11/24/2024 7:27 PM [facility] HHNREGOHNCRFV5102 - 100 fL11/24/2024 7:27 PM [facility] SBKZLKBCNSRYS71.227 - 34 pg11/24/2024 7:27 PM [facility] FMGSVOWYYJDSNV88.132 - 36 g/dL11/24/2024 7:27 PM [facility] CMGABTGINZUWD91.811.5 - 15 %11/24/2024 7:27 PM [facility] LABORATORYPlatelet Hjpna352685 - 450 X10E9/L1 7:27 PM EDT [facility]ORATORYMPV7.87 - 12 fL11/24/2024 7:27 PM [facility]ORYNeutrophils %55.2%11/24/2024 7:27 PM [facility]ORYLymphocytes %30.0%11/24/2024 7:27 PM [facility]ORYMonocytes %6.7%11/24/2024 7:27 PM [facility]ORYEosinophils %7.5%11/24/2024 7:27 PM [facility]ORYBasophils %0.6%11/24/2024 7:27 PM [facility] LABORATORYNeutrophils Absolute (A)4.61.5 - 6.6 10*3/uL 11/24/2024 7:27 PM [facility]ORYLymphocytes Absolute 2.51.0 - 3.5 10*3/uL11/24/2024 7:27 PM [facility] Monocytes Absolute0.60.0 - 0.9 10*3/uL11/24/2024 7:27 PM [facility]ORYEosinophils Absolute0.6(H)0.0 - 0.4 10*3/uL11/24/2024 7:27 PM [facility]ORYBasophils Absolute0.00.0 - 0.2 10*3/uL 11/24/2024 7:27 PM [facility]ORATORYDifferential Type AUTOMATED JWOMSDOJBNFX79/05/2025 7:27 PM [facility] LABORATORYSpecimen (Source)Anatomical Location / LateralityCollection Method / VolumeCollection TimeReceived TimeBloodVenous blood / Beurhny0511/24/2024 7:04 PM EDT1 7:14 PM EDT Narrative Authorizing ProviderResult TypeResult StatusJesse A Juanita DOLAB BLOOD ORDERABLES Final ResultPerforming OrganizationAddressCity/State/ZIP CodePhone Number [facility] [address] [place] [id number], * (ABNORMAL) Comprehensive metabolic panel (11/24/2024 7:04 PM EDT)Component ValueRef RangeTest MethodAnalysis TimePerformed AtPathologist SignatureSODIUM 117951 - 146 mmol/L1 7:48 PM [facility] POTASSIUM4.13.5 - 5.0 mmol/L1 7:48 PM [facility] WMRMVAABJBFWHDHYLO50557 - 109 mmol/L1 7:48 PM [facility] LABORATORYCARBON IVMSXPQ9515 - 32 mmol/L1 7:48 PM [facility] LABORATORYANION YCQ500 - 15 mmol/L1 7:48 PM EDT [facility] LABORATORYBLOOD UREA YNWFSVXC187 - 23 mg/dL11/24/2024 7:48 PM [facility] LABORATORYCREATININE0.690.40 - 1.00 mg/dL 11/24/2024 7:48 PM [facility]ORATORYComment:METHOD TRACEABLE TO IDMS DVMPWHOLJKQAAEZ5679 - 99 mg/dL11/24/2024 7:48 PM [facility] LABORATORYCALCIUM9.08.5 - 10.5 mg/dL11/24/2024 7:48 PM EDT [facility] LABORATORYTOTAL PROTEIN6.76.0 - 8.0 g/dL11/24/2024 7:48 PM [facility] LABORATORYALBUMIN4.13.2 - 5.3 g/dL 11/24/2024 7:48 PM [facility] LABORATORYALKALINE PHOSPHATASE 7739 - 130 U/L1 7:48 PM [facility] NJHNCETZUFVBX23 <=41 U/L1 7:48 PM [facility] DTFTEFTAIZYYE58<=31 U/L 11/24/2024 7:48 PM [facility] LABORATORYBILIRUBIN,TOTAL0.2(L) 0.3 - 1.2 mg/dL11/24/2024 7:48 PM [facility]ORYEGFR Non-Race Dependent>90>=60 ml/min/1.73sq.m1 7:48 PM [facility] LABORATORYComment: Reported eGFR is based on the CKD-EPI 2020 equation that does not use a race coefficient. Specimen (Source)Anatomical Location / LateralityCollection Method / Volume Collection TimeReceived TimeBloodVenous blood / Ypcrndg3711/24/2024 7:04 PM EDT 11/24/2024 7:14 PM EDT Narrative Authorizing ProviderResult TypeResult StatusJesse Jose [facility] BLOOD ORDERABLES Final ResultPerforming OrganizationAddressCity/State/ZIP CodePhone Number [facility] [address] [place] [address], from Last 3 Months Insurance Advance Directives * Full Code (Latest Code Status on File) Date ActivatedDate InactivatedComments03/28/2024 2:56 PM2 8:49 PM Care Teams Team MemberRelationshipSpecialtyStart DateEnd Date Corine Gold MD [address] [facility], [place] [address] PCP - GeneralFamily Xggitmfz69/22/25
--- OUTSIDE RECORDS SUMMARY | 2025-02-01 09:33 | XMS_ITS | Clinical Summary ---
Author Organization [facility] Address [address] [facility] [place] [address] Care Team Providers Care Aluminum Molder Name Role Phone Corine Gold MD Primary Care Provider Unavail able Social History Tobacco UseTypesPacks/DayYears UsedDateSmoking Tobacco: Never Assessed CommentsUnknownSex and Gender InformationValueDate RecordedSex Assigned at Not on fileLegal JxzJwhift74/11/2020 3:05 PM EDTGender IdentityNot on fileSexual OrientationNot on file Plan of Treatment Health MaintenanceDue DateLast DoneCommentsMMR Vaccine (1 of 1 - Standard series)11/13/1996DTaP/Tdap/Td Vaccine (1 - Tdap)11/13/2002Varicella Vaccine (1 of 2 - 13+ 2-dose series)11/13/2008Hepatitis B Vaccine (1 of 3 - 19+ 3-dose series)11/13/2014HPV Vaccine (1 - 3-dose SCDM series)3COVID-19 Vaccine (1 - season)2024Influenza Vaccine (#1), 11/27/2014, 10/23/2012, Additional history existsHIB VaccineAged OutNo longer eligible based on patient's age to complete this topicHepatitis A VaccineAged OutNo longer eligible based on patient's age to complete this topicIPV Vaccine Aged OutNo longer eligible based on patient's age to complete this topic Meningococcal ACWY VaccineAged OutNo longer eligible based on patient's age to complete this topicMeningococcal B VaccineAged OutNo longer eligible based on patient's age to complete this topicPneumococcal VaccineAged OutNo longer eligible based on patient's age to complete this topicRSV AntibodiesAged OutNo longer eligible based on patient's age to complete this topicRotavirus Vaccine Aged OutNo longer eligible based on patient's age to complete this topic Care Teams Team MemberRelationshipSpecialtyStart DateEnd Date Corine Gold MD [address], [place] [address] [facility] - [facility]
--- OUTSIDE RECORDS SUMMARY | 2025-02-01 09:33 | XMS_ITS | Patient Health Record ---
Author Organization [facility] [place] Address [address] [place] [address] Care Team Providers Care Strategic Communications Specialist Name Role Phone Lamont Blair MD Primary Care Provider Romeo bradley CasieHeraclio Unavailable [phone] Allergies Allergen (clinical drug ingredient) Drug/Non Drug [...] Oral; Duration: 30 DaysActiveCaplyta 10.5 MGas directed Imnvek1604/19/2023ctive Ketorolac Tromethamine 10 MGtake 1 tablet by [...] Route Administration Date Status Comme nts Flu, (06802) -historic- 3-va lent, Split, Prsrvtve Free, 6-35 [...] W/U Status Risk Notes Problem Plantar wart (17218929) Plantar wart (B07 .0) ActiveconfirmedProblemChronic intractable migraine without aura (802284923581950)Chronic migraine without aura, intractable, with status migrainosus (G43.711)ActiveconfirmedProblemUncomplicated severe persistent asthma (186207778)Severe persistent asthma, uncomplicated (J45.50)Active confirmedProblemContracture of joint of left ankle (disorder) (847302415402143) Contracture, 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)ActiveconfirmedProblemLong-term current use of inhaled steroid (484075079)nursing home (current) use of inhaled steroids (Z79.51) ActiveconfirmedProblemMorbid obesity (603660416)Morbid obesity (E66.01)Active confirmedProblemBipolar disorder (63803270)Bipolar disorder (F31.9)Active confirmedProblemReactive airway disease (218964633690)Reactive airway disease (J45.909)ActiveconfirmedProblemIntractable migraine (080222583)Intractable migraine (G43.919)ActiveconfirmedProblemTobacco use (157900646)Vapes nicotine containing substance (Z72.0)ActiveconfirmedProblemBody mass index 40+ - severely obese (917055531)Body mass index [BMI] 45.0-49.9, adult (Z68.42)Activeconfirmed ProblemPeripheral eosinophilia (D72.19)Activeconfirmed Encounters Encounter Location Date Provider Diagnosis Pulmonary Medicine [address] [address] 03/19/2024 Heraclio Jason Plan Of Treatment No Information Insurance Providers Payer Name Payer Address Payer Phone Subscriber Number Group Number Insured Name Patient Relationship to Insured Coverage Start Date Coverage End Date [employer] [place] [employer] [address] [place] [address] [id number] Adam Nicholsonelf - patient is the [id number] 2022 Medical (General) History Medical History History ICD Code asthma migraine headachesseizuresLeft foot painM79.672Severe persistent asthma, uncomplicatedPeripheral eosinophiliaVapes nicotine containing substanceLong term (current) use of inhaled steroidsMorbid obesityPseudoseizuresPCOS (polycystic ovarian syndrome)OMID (generalized anxiety disorder)Bipolar disorder, mixed Surgical History Surgery Date(Month/Year) diagnostic laparoscopy cholecystectomycesarean sectiontubal ligationhysterectomyappendectomy hysterectomy, total with bilateral salpingo-oophorectomy (BSO)diagnostic lap tubal ligationc-section e4eqtvpfkowflwlbnogwp repairHospitalization History Reason Date(Month/Year) Acute Exacerbation of Asthma-[facility] 023 Acute Exacerbation of Asthma-[facility] 024
--- OUTSIDE RECORDS SUMMARY | 2025-02-01 09:33 | XMS_ITS | Clinical Summary ---
Author Organization [facility] Address [address] [place] [address], [address] [place] [address] Care Team Providers Care White Work Cleaner Name Role Phone Angélica Weber Pamela HECK - BOTTLE LABELER Primary Care Provider [phone] Allergies Active AllergyReactionsCriticalityNoted PqtaAbyijnaqZiyuagakpjAgewc70/04/2021 Propranolol HclHives,Other (See Comments)12/24/2020 Migrianes GcgjblniigrwflOuppv18/04/2021arbamazepineOther (See Comments)12/24/2020 anxiety LafnphvbdihnRxsar34/04/2021 Medications MedicationSigDispense QuantityRefillsLast FilledStart DateEnd DateStatus SUMAtriptan [...] Discharge) Active Problems ProblemNoted DateDiagnosed DatePsychogenic nonepileptic dorshpq6110/20/2021 Seizure-like auxqgspf79/30/2022eizure taojwtxx79/30/2022 Social History Tobacco UseTypesPacks/DayYears UsedDateSmoking Tobacco: NeverSmokeless Tobacco: NeverAlcohol UseStandard Drinks/WeekCommentsNot Currently0 (1 standard drink = 0.6 oz pure alcohol)CommentsNoSex and Gender InformationValueDate RecordedSex Assigned at BirthNot on fileLegal AoiPricny58/13/2013 12:07 AM EST Gender IdentityNot on fileSexual OrientationNot on file Last Filed Vital Signs Vital SignReadingTime TakenCommentsBlood Jcqnjmns158/6920010/20/2021 12:00 PM EDT Lowys9987 12:00 PM QKMEzanhpqxikl95.8 ??C (98.2 ??F)10/20/2021 8:00 AM EDTRespiratory Uylh788010/20/2021 12:00 PM EDTOxygen Onpzjqavfi07%10/20/2021 12:00 PM EDTInhaled Oxygen Concentration--Weight--Height--Body Mass Index-- Plan of Treatment Not on file Insurance Advance Directives * Full Code (Latest Code Status on File) Date ActivatedDate InactivatedComments10/19/2021 12:27 PM10/20/2021 4:12 PM * Full Code Date ActivatedDate InactivatedComments10/19/2021 12:23 PM10/19/2021 12:27 PM Care Teams Team MemberRelationshipSpecialtyStart DateEnd Date Angélica Weber, PEDIATRIC DENTAL HYGIENIST - BOTTLE LABELER [address] [place] [address] PCP - GeneralNurse Uticvuvlsqze22/4/21
--- OUTSIDE RECORDS SUMMARY | 2025-02-01 09:33 | XMS_ITS | Encounter Summary ---
Author Organization [facility] tem Address [id number] [address] [place] [address] Care Team Providers Care Rubber Engraver Name Role Phone Corine Gold MD Primary Care Provider [phone] Reason for Visit * ReasonOnset DateCommentsSleep Lab12/12/2024omp PSG/PAP Encounter Details DateTypeDepartmentCare Team (Latest Contact Info)Ggdboordckc54/23/2025Telephone [facility] - Sleep Disorders [address] [place] [address] Corine Gold MD [address] [id number] Sleep Lab (Comp PSG/PAP) Social History Tobacco UseTypesPacks/DayYears UsedDateSmoking Tobacco: NeverSmokeless Tobacco: NeverAlcohol UseStandard Drinks/WeekCommentsNot Currently0 (1 standard drink = 0.6 oz pure alcohol)[facility] UtilitiesAnswerDate RecordedIn the past 12 months has the [employer], gas, oil, or water Changers threatened to shut off services in your [...] care, and heating?Not hard at all04/08/2024PHQ-2AnswerDate RecordedTotal Lujen589PRAPARE - TransportationAnswerDate RecordedIn the past 12 months, [...] a part of a household?No04/08/2024hildcareAnswerDate RecordedChildcareUnknown 08/01/2018EmploymentAnswerDate KzddmfhlMzwgnfzmocDipdqoa69/12/2019Hunger ScreeningAnswerDate RecordedWithin the past 12 months we worried whether our food would run out before we got money to buy more.Never True01/11/2025Within the past 12 months the food we bought just didn't last and we didn't have money to get more.Never True01/11/2025Purpose - LifeAnswerDate RecordedPurpose and direction in cljnXcavsqs13/12/2021CommentsNoSex and Gender Information ValueDate RecordedSex Assigned at BirthNot on fileLegal YpbPpjjfn42/06/2015 11:52 AM EDTGender IdentityNot on fileSexual OrientationNot [...] Scheduled PAP at [facility] on 02/28/24 Confirmation MyChart Routed Ashli for approval [place] [employer] Comp Order and 12/10/24 MMarisol Epic Notes * Telephone Encounter - Ghazala Cornelius MD - 12/12/2024 10:57 AM EDT Ok for PSG at [facility] due to BMI High risk for hypoventilation Already established with Dr. Peña Ok for CPAP if qualifies on PSG * Telephone Encounter - Alec Rivas - 12/12/2024 10:57 AM EDT AUTHORIZATION STARTED Pending review [place] #[id number] Clinicals (2) attached * Telephone Encounter - Alec Rivas - 12/12/2024 10:57 AM EDT AUTHORIZATION DETAILS [id number] Valid 01/13/2025 - 05/13/2025 Auth#[id number] [employer] / [place] [facility] Auth letter in MM * Telephone Encounter - Vielka Hussein - 12/12/2024 10:57 AM EDT 01/28 Called to confirm, left message * Telephone Encounter - Vi Valencia - 12/12/2024 10:57 AM EDT Pt LMOM to cancel. Emailed hub to reschedule. * Telephone Encounter - Yecenia Tomlin - 12/12/2024 10:57 AM EDT Called pt to reschedule Lm advising her apt on 02/27 would be removed also and both would need to be rescheduled documented in this encounter Plan of Treatment DateTypeDepartmentCare Team (Latest Contact Info)Auwxhofmdrq29/03/2026 9:45 AM ESTOffice Visit [facility] [address] [address] Mariah Peña DO [address] [address] documented as of this encounter Goals GoalPatient Goal TypeAssociated ProblemsRecent ProgressPatient-Stated?Author home Tamiko Thompson RN Note: Evaluation of progress towards goal: Patient stated goal is to return home with [facility] for assistance with wound care documented as of this encounter Visit Diagnoses Not on filedocumented in this encounter Additional Health Concerns AssessmentNoted TimePHQ-9 Depression Total Score: 2:59 PM EDT documented as of this encounter Care Teams Team MemberRelationshipSpecialtyStart DateEnd Date Corine Gold MD [address] [address] PCP - GeneralFamily Xdfvqwok60/22/25documented as of this encounter
--- OUTSIDE RECORDS SUMMARY | 2025-02-01 09:33 | XMS_ITS | Clinical Summary ---
Author Organization [facility] Address [address] [place] [address] Care Team Providers Care Vapor Coater Name Role Phone Unavailable Primary Care Provider Unavailabl e Allergies Active AllergyReactionsCriticalityNoted WdaoYthaycxxOslexhjluaes09/12/2023Bee WepwvKidivhc01/05/4761ZgilapdwgCmczyCms70/17/7401EuzxhbslnvmyuZklteir34/04/2021 anxiety CephalexinHives,XrbfRdf1012/08/20163876IrcsoggutjoqjQafjk44/23/2023larithromycinGI wbzjfjwdozl29/16/2633AqktkxlordyMidzfcs35/06/3049AxplyaukccpsdjckHdcip37/23/2023 Dextromethorphan-PaydzpdhfuLgcwf61/18/2022DihydroergotamineGI intoleranceMedium 07/27/2022 Chest tightness, numbness and tingling in bilateral extremities, increased anxiety QxhowumhsrkmiFkbsrub53/22/2023MetoclopramideHives,Unknown,PdblVuh9012/08/2016Other Hives3395AacqxtsoljvBcdlt21/04/2021 Migrianes WjntsxlsgxafQcsjk73/17/2022 Other Reaction(s): intolerance to med Wound Dressing YwaqcarmVjcmPxzgjy81/19/2017 Medications MedicationSigDispense QuantityRefillsLast FilledStart DateEnd DateStatus promethazine (Phenergan) 25 MG suppository Insert 25 mg into the rectum every 6 (six) hours if needed for nausea or vomitingActive Acetaminophen Extra Strength 500 MG tablet Take 500 mg by mouth every 6 (six) hours if needed (pain)5Active albuterol (2.5 MG/3ML) 0.083% nebulizer solution Inhale 2.5 mg 4 (four) times a day as uqamyn215Active albuterol HFA 90 mcg/act inhaler Inhale 2 puffs every 4 (four) hours if uulcjk4705/27/2024tive amitriptyline (Elavil) 100 MG tablet Take 100 mg by mouth at nikyozs5206/24/2024tive baclofen (Lioresal) 10 MG tablet Take 10 mg by mouth at bedtimeActive chlorzoxazone (Parafon Forte) 500 MG tablet Take 500 mg by mouth 2 (two) times a day as needed for muscle hxifum3505/31/2024 Active diazePAM (Valium) 10 MG tablet Take [...] Take 10 mg by mouth Daily as ubsvml4006/06/2024tive omeprazole (PriLOSEC) [address] capsule Take 40 mg by mouth Daily03/20/2024tive ondansetron ODT (Zofran-ODT) 4 MG disintegrating tablet Take 4 mg by mouth every 6 (six) hours if needed for nauseaActive scopolamine (Transderm-Scop) 1 mg/72 hr patch [address] 1 patch on the skin every 3rd (third) dayActive Ubrelvy 100 MG tablet Take 100 mg by mouth if needed (migraine)5Active carBAMazepine XR (TEGretol XR) 100 MG 12 hr tablet Take 100 mg by mouth in the morning and 100 mg before bedtime.5Active trimethoprim-polymyxin b (Polytrim) ophthalmic solution 5Active estradiol (Estrace) 1 MG tablet Indications:Low libido,Dyspareunia in femaleTake 1 tablet (1 mg) by mouth in the morning. 90 tablet //ctive progesterone (Prometrium) 100 MG capsule Indications:Hot flashes due to surgical menopauseTake 1 capsule (100 mg) by mouth Daily 30 capsule 1108//6Active estradiol (Estrace) 0.1 MG/GM vaginal cream Indications:Vaginal drynessInsert 2 g into the vagina at bedtime At bedtime for 2 weeks, then at bedtime twice a week. 42.5 g /ctive Active Problems ProblemNoted DateDiagnosed DateGeneralized abdominal pain02/09/2024 Assessment & Plan (02/09/2024 12:18 PM EST): Unclear cause of pain and check CT. Referred to GI. Intractable nausea and qltlwynu68/19/2024 Assessment & Plan (02/09/2024 12:19 PM EST): [...] lasix PRN. SOB (shortness of breath) on xdpaaada58/03/2024 Assessment & Plan (01/23/2024 1:55 PM EST): Severe symptom and check CXR. Use albuterol PRN and start prednisone. Pain, upgvrz3401/09/2024 Assessment & Plan (01/09/2024 10:07 AM EST): Broken tooth and follow with dentist. Gargle with warm salt water. Start ultram PRN. Pxubhtj6801/01/2024 Assessment & Plan (01/09/2024 10:08 AM EST): Possibly related to bipolar. Check labs. Encounter for long-term (current) use of ulclaqtdjhu03/11/2024Mild persistent asthma with (acute) ccdwvaoncarq65/20/2024 Assessment & Plan (02/09/2024 12:19 PM EST): [...] Continue medications as prescribed. Mixed bipolar I wpxkqqax46/05/2023 Assessment & Plan (01/09/2024 10:07 AM EST): Denies worsening symptoms and follow with specialists Assessment & Plan (11/15/2023 9:45 AM EDT): Follow with specialists Chronic migraine without aura without status migrainosus, not intractable 01/24/2023 Assessment & Plan (01/09/2024 10:08 AM EST): PINEDA worse and follow with specialists. Generalized anxiety mdoaowbc34/05/2023ersistent disorder of initiating or maintaining sleep01/24/2023Mild persistent yrmtpk4001/24/2023 Assessment & Plan (03/21/2023 12:36 PM EST): Continued symptoms and check PFTs. Refer to pulmonology. Use albuterol PRN. Polycystic pdqinqx7501/24/2023sychogenic nonepileptic ubepxog8001/24/2023elvic pain in kbgelr1312/19/2022 Resolved Problems ProblemNoted DateDiagnosed DateResolved DateAcute bronchitis due to other specified eczglskjo38 Assessment & Plan (11/15/2023 9:42 AM EDT): [...] negative check US.Use ultram PRN. Encounters DateTypeDepartmentCare QdmzRhsokpzpgme37/22/2025Telephone [facility] [address] [place] [address] Zeb [place]mm[place], [place] [address]Telephone [facility] [address] [address] Zay Blas DO from Last 3 [...] oz pure alcohol)Caffeine intake: >4 cups per kbqE7001 Health LiteracyAnswerDate Recorded How often do you [...] relatives?Twice a week01/23/2024How often do you attend catholic or restorationism services?More than 4 times per year4Do you belong to any clubs or organizations such as catholic groups, unions, fraternal or athletic donta ups, or school groups?Yes01/23/2024How often do you attend meetings of the clubs or organizations you belong to?More than 4 times per year12/03/2024Are you , , , , never , or living with a partner? Living with ugngnoe5401/23/2024UDIT-CAnswerDate RecordedQ1: How often do you have a [...] and heating?Not very hard01/23/2024HQ-2AnswerDate RecordedPatient Health Questionnaire-2 Zzlmx796Finamerican [facility] - Occupational Stress QuestionnaireAnswerDate [...] from medical appointments or from getting medications?Patient /03/2024In the past 12 months, has lack of transportation kept you from meetings, work, or from getting things needed for daily living?No01/23/2024Housing Stability Vital Sign AnswerDate RecordedIn the last 12 months, was there a time when you were not able to pay the mortgage or rent on time?No01/23/2024In the past 12 months, how many times have you moved where you were living?4At any time in the past 12 months, were you homeless or living in a long term (including now)?No 4CommentsNoSex and Gender InformationValueDate RecordedSex Assigned at BirthNot on fileLegal FhuNaerxy13/15/2023 7:02 PM EDTGender Identity Not on fileSexual OrientationNot on file Last Filed Vital Signs Vital SignReadingTime TakenCommentsBlood Rufqflvc922/8932909/03/2024 10:33 AM EDT Avbsu96264/20/2024 10:38 AM KFCUqbulkrqjuh06.7 ??C (98 ??F)02/09/2024 10:38 AM ESTRespiratory Ihvh809404/11/2023 10:38 AM ESTOxygen Wpnnstgbda72%02/09/2024 10:38 AM ESTInhaled Oxygen Concentration--Jfjonb628 kg (268 lb 8 oz)09/03/2024 10:33 AM NSHJuigdj196.9 cm (5' 1 )02/09/2024 10:38 AM ESTBody Mass Index50.73 02/09/2024 10:38 AM EST Plan of Treatment Health MaintenanceDue DateLast DoneCommentsPneumococcal Vaccine: Pediatrics (0 to 5 Years) and At-Risk Patients (6 to 64 Years) (1 of 2 - PCV)11/13/2014COVID- 19 Vaccine (1 - season)2024Influenza Vaccine (#1)2024 12/08/2017, 12/31/2015, 11/27/2014, Additional history exists Insurance
--- OUTSIDE RECORDS SUMMARY | 2025-02-01 09:34 | XMS_ITS | CCD ---
Author Organization [facility] CliniSymn Care Team Providers Care Audio Video Technician Name Role Phone Abdifatah Brady (Historical) Primary Care Provide r Unavailable Kuns POLICE INSPECTOR - LAUNCH OPERATOR, Derik Santiago Primary Care Provider DERIK WEBER Primary Care Unavailable KEVEN CHING Attending Unavailable Kuns POLICE INSPECTOR - LAUNCH OPERATOR, Derik Santiago Primary Care Provider [phone] LUCILA MOTA Attending Unavailable PAYKINGS Referring Unavailable [...] Unavailable PATRICIA WALSH Consulting Unavailable [facility] [place] Primary Care Unavailable HAY ., DR HARMAN Attending Unavailable HAY ., DR HARMAN Admitting Unavailable NEWSTEWART, NICHOLAS Consulting Unavailable UNLU, SINDY Consulting Unavailable ROOPA ., DR GUTIERREZ Admitting Unavailable ROOPA ., DR GUTIERREZ Consulting Unavailable [facility] [place] Primary Care Unavailable ROOPA ., DR GUTIERREZ Attending Unavailable KUNS, DR DERIK Santiago Primary Care Unavailable ROOPA ., DR GUTIERREZ Admitting Unavailable ROOPA ., DR GUTIERREZ Attending Unavailable ROOPA ., DR GUTIERREZ Consulting Unavailable ROOPA ., DR GUTIERREZ Admitting Unavailable ROOPA ., DR GUTIERREZ Attending Unavailable NADERER, DR LAMONT Garcia Primary Care Unavailable [facility] [place] Primary Care Unavailable HAY ., DR HARMAN [...] Unavailable Lamont Blair MD Primary Care Provider Lamont Blair MD Primary Care Provider [phone] Corine Gold MD Primary Care Provider Corine Gold MD Primary Care Provider Unavailable Primary Care Provider Unavailabl e Unallocated , Noms Provider Primary Care [facility] Corine Gold MD Primary Care Provider Unavail [...] Attending Unavailable LAMONT BLAIR Attending Unavailable ROOPA, ZYA Attending Unavailable ROOPA, ZAY Attending Unavailable Dariusz [...] ilable Lamont Blair MD Primary Care Provider [phone] Unallocatscott MORENO Noms Provider Primary Care Provi mahsa Lamont Blair MD Unavailable Allergies Allergy ClassificationReported Allergen(s)Allergy TypeDate of OnsetReaction(s) FacilityAnti-Epileptic Agents (1 source)levETIRAcetamDrug Wkqfcor58-15-6008DhmxelwDkoeddhne Clinic Work Phone: Cephalosporins (antibiotic) (1 source)CephalexinDrug Srycxlw47-87-0654OinmAjbqqcrdz ClinicDextromethorphan / Pyrilamine (1 source)Dextromethorphan / PyrilamineDrug Xzwyowb63-60-6100HufacAyzfmbmnf Clinic Work Phone: Dihydroergotamine (1 source)DihydroergotamineDrug Funphxg47-20-0432VncarpusscbZiomyaqak Clinic DOPamine Antagonists (1 source)MetoclopramideDrug Nahcogj53-62-4983TkfequldjskQfdmyuhrs Clinic Macrolides (antibiotic) (1 source)AzithromycinDrug Fdutory70-64-2580Kyfvi: See [facility] vortioxetine (1 source)vortioxetineDrug Awpuwgk03-06-5246NqidoUdwtwaerf Clinic (20 sources)Azithromycin; Translations: [AZITHROMYCIN]Drug Oupdkef24-26-7627 Hives, Other: See [facility] (20 sources)carBAMazepineDrug Kpgvqsl47-65-2791Pohqy (See Comments)[facility] (20 sources)Cephalexin; Translations: [CEPHALEXIN]Drug Zprskix85-56-9367Hxvre, RashMerFranciscan Health (20 sources)Metoclopramide; Translations: [METOCLOPRAMIDE]Drug Utxjrbd37-76-3030 Hives, Intolerance, Unknown, Rash, Other (See Comments)[facility] (20 sources)PropranololDrug Lutxfzh98-21-2747Nvycs, Other (See Comments)[facility] (20 sources)Adhesive Tape-Silicones; Translations: [ADHESIVE TAPE-SILICONES]Drug Njinvfe89-70-0054LhcvRuhufqimp Clinic (20 sources)Dextromethorphan / Pyrilamine; Translations: [PYRILAMINE-DEXTROMETHORPHAN]Drug Gpxknlx81-15-8255XzyppXuxtjmrkt Clinic Work Phone: (20 sources)vortioxetine; Translations: [VORTIOXETINE]Drug Wxzyhkl66-98-8627 [facility] Work Phone: (20 sources)Dihydroergotamine; Translations: [DIHYDROERGOTAMINE]Drug Allergy 00-28-9006Dqyzabckppb, GI intolerance, GI Disturbance, [facility] (1 source)AzithromycinDrug AllergyThe [facility] (1 source)bee venomDrug allergy (disorder)[facility] (1 source)CephalexinDrug AllergyThe [facility] (1 source)DesonideDrug AllergyThe [facility] (1 source)IothalamateDrug AllergyThe [facility] (2 sources)Propranolol; Translations: [PROPRANOLOL]Drug Nrmfdzw30-63-5335Gjl [facility] (1 source)Shallowater DMDrug allergy (disorder)53-89-9918Pyn [facility] (20 sources)levETIRAcetam; Translations: [LEVETIRACETAM]Drug Imrhmeb72-01-8589 Itching, [facility] Work Phone: (1 source)ValproateDrug Aepmggd14-84-3029QbuucHgqejjemy Clinic Work Phone: (20 sources)busPIRoneDrug Jgvacik89-02-3641KaodiKKMZ Healthcare Work Phone: (20 sources)CarbamazepineAllergy to uqkghqkrw75-55-7138WvzbcruIUTQ Healthcare (20 sources)CiprofloxacinDrug Ztqblgz85-05-7637NlhdtKOGS [facility] (20 sources)ClarithromycinAllergy to bkcmgcpee44-13-0871GW intoleranceNOMS Healthcare (20 sources)ClindamycinDrug Hxqntdj07-46-8713Tpdofqm, HivesNONY Healthcare (20 sources)DextromethorphanDrug Yhoeavm76-39-2819SsiaxRECA Healthcare (20 sources)Dextromethorphan / PyrilamineDrug Mnfxfzo03-73-4893AbahgOSMQ Healthcare (20 sources)Honey bee venomAllergy to pspxjpdze16-50-0397HlbfmibNBIU Healthcare (20 sources)LevetiracetamPropensity to adverse exxgbassl88-48-2432BbvkqgySBGM Healthcare (20 sources)PropranololDrug Fiiimon56-41-9878Jkgfv, Other: See CommentsNOCrossroads Regional Medical Center (20 sources)vortioxetineDrug Plaohyk82-87-8877UzsufTCRH Healthcare (20 sources)OtherAllergy to grnxfdkar66-31-7992BvmpgOZHC Healthcare (20 sources)Wound Dressing AdhesiveDrug Gbeiblr62-25-1433ZsitVRIR Healthcare (20 sources)Prochlorperazine; Translations: [PROCHLORPERAZINE]Drug Allergy 38-83-3967Lzydoxkmpgm, AnxietyPremier Health [facility] (20 sources)Adhesive agentPropensity to adverse reactions to lktx17-80-3522DaxuNewYork-Presbyterian Hospital System (20 sources)DexamethasoneDrug Jkxlbld09-02-3679EzvjtWoiTemqkf Health System (20 sources)MetoclopramideDrug Irivxwp43-38-1969JecvvayMcLaren Port Huron Hospital System (20 sources)Bee Venom Protein (Honey Bee)Propensity to adverse reactions to drug 38-25-2904TyahxlbbgpwZjlVfwiqb Health System (20 sources)eptinezumab; Translations: [EPTINEZUMAB-[facility]]Drug Thqmesd33-80-2750 Rash, ItchingPremier Health [facility] (6 sources)Adhesive agentPropensity to adverse reactions to usvi80-60-4483RtieUNC Health [facility] (1 source)AzithromycinDrug Htmkfze22-32-9414ShfzikatzMercy Health [facility] (1 source)CephalexinDrug Ozyczzk27-39-2995JoybwsjhjMercy Health [facility] (1 source)levETIRAcetamDrug Ddnydpr95-22-2270QhpyhagvuMercy Health [facility] (1 source)MetoclopramideDrug Yswguyx04-34-2186WromokqajMercy Health [facility] (1 source)ProchlorperazineDrug Hrfcndl65-89-7947SmivxzfwsMercy Health [facility] (5 sources)HaloperidolDrug Qyfjrnv25-62-7224RitcwlvqglnntgIbvSptlfo Health System (4 sources)AmoxicillinDrug Xhrffyc03-77-0376Vwbzt, DiarrheaProMedica Health System (4 sources)Amoxicillin / ClavulanateDrug Cjhayzw52-17-6406Poste, Diarrhea [facility] Medications Current Medications MedicationDrug Class(es)DatesSig (Normalized)Sig (Original)[id number] 200 actuat albuterol 0.09 mg/actuat metered dose inhaler (20 sources)beta2-Adrenergic AgonistStart: 74-30-5345bmxs 2 puff(s) by mouth every four hours as neededalbuterol (VENTOLIN HFA) 90 mcg/actuation inhaler Indications: Moderate persistent asthma, unspecified whether complicated INHALE TWO PUFFS BY MOUTH EVERY 4 HOURS NEEDED 18 g 12/19/2024 ActiveStart: 05-27-2024 End: 66-82-7396ifdf 2 puff(s) by mouth every four hours as neededalbuterol (VENTOLIN HFA) 90 mcg/actuation inhaler Indications: Moderate persistent asthma, unspecified whether complicated INHALE TWO PUFFS BY MOUTH EVERY 4 HOURS NEEDED 18 g 11 09/30/2024 ActiveStart: 34-15-0339qsiu 2 puff(s) by inhalation every four hoursalbuterol HFA 90 mcg/act inhaler Inhale 2 puffs every 4 (four) hours if needed 05/27/2024 ActiveStart: 59-32-2573bwra 3 mL by inhalation four times daily as needed for wheezingalbuterol (PROVENTIL,VENTOLIN) 2.5 mg /3 mL (0.083 %) nebulizer solution Indications: Moderate asthma with acute exacerbation, unspecified whether persistent Inhale 3 mL (2.5 mg total) by nebulization 4 (four) times a day as needed for wheezing. 360 mL 10 03/20/2024 ActiveStart: 69-02-0468izbsubyia (2.5 MG/3ML) 0.083% nebulizer solution Inhale 2.5 mg 4 (four) times a day as needed 03/20/2024 ActiveStart: 12-12-2023 End: 99-82-2484dedf 2 puff(s) by inhalation every four hours for wheezing albuterol HFA 90 mcg/act inhaler Indications: Severe persistent asthma without complication (CMS/HCC) Inhale 2 puffs every 4 (four) hours if needed for wheezing or shortness of breath 8.5 g 3 12/12/2023 02/28/2024 DiscontinuedStart: 79-23-6722vozi 2 puff(s) by inhalation every six hours as needed for wheezing albuterol sulfate 90 mcg/actuation breath activated powder inhaler Inhale 2 Puffs as instructed every 6 hours as needed for wheezing/shortness of breath. 08/16/2023 ActiveStart: 03-04-2023 End: 07-32-2735cailakuid (2.5 MG/3ML) 0.083% nebulizer solution Indications: Severe persistent asthma without complication (CMS/HCC) Take 3 mL (2.5 mg) by nebulization every 6 (six) hours if needed for wheezing 75 mL 1 03/04/2023 02/28/2024 DiscontinuedStart: 03-04-2023 End: 99-42-8684tyjn 2 puff(s) by inhalation every four hours for wheezing albuterol HFA 90 mcg/act inhaler Indications: Severe persistent asthma without complication (CMS/HCC) Inhale 2 puffs every 4 (four) hours if needed for wheezing 8.5 g 3 11/06/2023 12/06/2023 ActiveStart: 06-07-2022 End: 04-58-2043xnaj 2 puff(s) by mouth every four hours as neededalbuterol (VENTOLIN HFA) 90 mcg/actuation inhaler Indications: Moderate persistent asthma, unspecified whether complicated INHALE TWO PUFFS BY MOUTH EVERY 4 HOURS NEEDED 18 g 3 05/01/2024 05/24/2024 Discontinued (Reorder)Start: 06-07-2022 End: 01-75-4700quae 0.63 mg by inhalation every six hours as needed for wheezing and dyspnea and dyspneaalbuterol (ACCUNEB) 0.63 mg/3 mL nebulizer solution Indications: SOB (shortness of breath) Inhale 3mL (0.63 mg total) by nebulization every 6 (six) hours as needed for wheezing. 75 mL 1 06/07/2022 Discontinuedamitriptyline hydrochloride 100 mg oral tablet (5 sources)Tricyclic AntidepressantStart: 40-64-0732juuf 1 tablet by mouth at bedtimeamitriptyline (Elavil) 100 MG tablet Take 100 mg by mouth at bedtime 06/24/2024 Activeamoxicillin 500 mg oral capsule (1 source)Penicillin-class AntibacterialStart: 10-24-2024 End: 96-98-3261pezc 1 capsule by mouth three times dailyamoxicillin (AMOXIL) 500 mg capsule Indications: Left otitis media, unspecified otitis media type Take 1 capsule (500 mg total) by mouth 3 (three) times a day for 7 days. 21 capsule 10/24/2024 10/31/2024 Activeamoxicillin 875 mg / clavulanate 125 mg oral tablet (6 sources)Penicillin-class AntibacterialStart: 05-21-2024 End: 05-55-3515ajqp 1 tablet by mouth once in the morningamoxicillin-pot clavulanate (AUGMENTIN) 875-125 mg per tablet Indications: Moderate persistent asthma with acute exacerbation , Acute pansinusitis, recurrence not specified Take 1 tablet by mouth in the morning and 1 tablet before bedtime. Do all this for 10 days. 20 tablet 05/21/2024 05/31/2024 ActiveStart: 04-10-2024 End: 27-28-2398ekea 1 tablet by mouth every eight hoursamoxicillin-pot clavulanate (AUGMENTIN) 875-125 mg per tablet Take 1 tablet by mouth every 8 (eight) hours for 7 days. 21 tablet 04/10/2024 04/17/2024 Activebaclofen 10 mg oral tablet (20 sources)gamma-Aminobutyric Acid-ergic AgonistStart: 04-25-2024 End: 43-37-8399puqr 1 tablet by mouth once dailybaclofen (LIORESAL) 10 mg tablet Indications: Muscle spasm TAKE 1 TABLET BY MOUTH NIGHTLY 30 tablet3 10/02/2024 ActiveStart: 11-10-2023 End: 54-45-8091mkld 1 tablet by mouth in the morning, [...] 90 tablet 2 11/10/2023 ActiveStart: 07-14-2023 End: 95-30-4893nzum 1 tablet by mouth in the morning, [...] 90 tablet 2 07/14/2023 ActiveStart: 11-22-2021 End: 05-57-6819pxlu 1 tablet by mouth three times daily at bedtimebaclofen (Lioresal) 10 MG tablet Indications: Pelvic pain in female TAKE 1 TABLET BY MOUTH THREE TIMES DAILY (IN THE MORNING, IN THE EVENING and BEFORE bedtime) 90 tablet 2 02/15/2024 02/28/2024 DiscontinuedComment on above:Take 10 mg by mouth three times a day as needed.benzonatate 200 mg oral capsule (16 sources)Non-narcotic AntitussiveStart: 12-12-2023 End: 42-80-2824jvhq 1 capsule by mouth three times daily as needed for cough benzonatate (Tessalon) 200 MG capsule Indications: COVID-19 Take 1 capsule (200 mg) by mouth 3 (three) times a day as needed for cough Do not crush or chew. 30 capsule 1 01/24/2024 02/28/2024 Discontinuedonabotulinumtoxina 200 unt injection (20 sources)Acetylcholine Release InhibitorStart: 63-78-1371zstntmxybzir toxin type A 200 Units injection (BOTOX)budesonide 0.5 mg/ml inhalation suspension (2 sources)CorticosteroidStart: 36-47-0481nzct 2 mL by inhalation in the morning budesonide (PULMICORT) 1 mg/2 mL nebulizer solution Indications: Moderate persistent asthma withoutcomplication Inhale 2 mL (1 mg total) by nebulization in the morning. 60 mL 6 12/17/2024 Udcxzq16 hr carBAMazepine 100 mg extended release oral tablet (7 sources)Mood StabilizerStart: 91-91-6097hohm 2 tablets by mouth in the morning, then take 2 tablets by mouth every twelve hours at bedtimecarBAMazepine XR (TEGretol XR) 100 mg 12 hr tablet Take 2 tablets (200 mg total) by mouth in the morning and 2 tablets (200 mg total) before bedtime. 120 tablet 11/25/2024 ActiveStart: 00-12-4844dpvq 1 tablet by mouth in the morning, then take 1 tablet by mouth every twelve hours at bedtimecarBAMazepine XR (TEGretol XR) 100 MG 12 hr tablet Take 100 mg by mouth in the morning and 100 mg before bedtime. 08/28/2024 Activecetirizine hydrochloride 10 mg oral tablet (20 sources)Histamine-1 Receptor AntagonistStart: 06-08-2022 End: 43-52-0774jouh 1 tablet by mouth in the morningcetirizine (ZyrTEC) 10 mg tablet Take 1 tablet (10 mg total) by mouth in the morning. 30 tablet 06/08/2022 Activechlorzoxazone 500 mg oral tablet (20 sources)Muscle RelaxantStart: 07-10-2023 End: 23-36-6268aafu 1 tablet by mouth twice daily as needed for muscle spasms chlorzoxazone (Parafon Forte) 500 MG tablet Take 500 mg by mouth 2 (two) times a day as needed for muscle spasms 05/31/2024 ActiveStart: 10-12-2022 End: 14-78-7517krdv 1 tablet by mouth three times daily [...] forrescue. 30 tablet 0 12/09/2022 Active End: 03-49-7048nocb 1 tablet by mouth four times daily as neededchlorzoxazone (PARAFON FORTE) 500 mg tablet Take 1 tablet (500 mg total) by mouth 4 (four) times a day as needed. 04/25/2024 DiscontinuedComment on above:Take 1 tablet by mouth up to three times a day as needed, immediately at onset of headache for rescue.clindamycin 300 mg oral capsule (2 sources)Lincosamide AntibacterialStart: 04-02-2024 End: 68-05-3937tfml 1 capsule by mouth in the morning, [...] mg oral tablet (3 sources)CorticosteroidStart: 12-12-2023 End: 25-67-8498styk 1 tablet by mouth once dailydexAMETHasone (Decadron) 6 MG tablet Indications: COVID-19 Take 1 tablet (6 mg) by mouth Daily for 6 days 6 tablet 12/12/2023 01/09/2024 Discontinueddexamethasone 1 mg/ml / tobramycin 3 mg/ml ophthalmic suspension (11 sources)Aminoglycoside Antibacterial, CorticosteroidStart: 05-12-2023 End: 74-76-3937whri 1 drop(s) into the eye(s) every six hourstobramycin- dexAMETHasone (Tobradex) ophthalmic suspension instill 1 drop into both eyes every 6 hours for 7 days 05/12/2023 01/09/2024 DiscontinueddiazePAM 5 mg oral tablet (20 sources)BenzodiazepineStart: 03-28-2024 End: 84-35-7306pnrhbMQK (VALIUM) tablet 5 mgStart: 11-23-2021 End: 56-23-0823jgxjuKIW (VALIUM) 10 mg tablet 11/23/2021 Activetake 0.5 tablet by mouth at bedtimediazePAM (VALIUM) 10 mg tablet Take 0.5 tablets (5 mg total) by mouth in the morning and at bedtime. Active End: 28-87-2463sfzgxHRB (Valium) 2 MG tablet Take by mouth every 8 (eight) hours if needed for anxiety. 01/09/2024iscontinuedtake 1 tablet by mouth every six hours as needed for anxietydiazePAM (VALIUM) 5 MG tablet Take 5 mg by mouth every 6 hours as needed for Anxiety. 0 Suspendeddoxycycline hyclate 100 mg oral tablet (6 sources)Tetracycline-class DrugStart: 01-23-2024 End: 14-60-4263qnlxlpsilxt (Vibra-Tabs) 100 MG tablet Indications: Mild persistent asthma with (acute) exacerbation (CMS/HCC) Take 1 tablet (100 mg) by mouth in the morning and 1 tablet (100 mg) before bedtime. Do all this for 10 days. Take with a full glass of water and do not lie down for at least 30 minutes after.. 20 tablet 01/23/2024 02/09/2024 Ffzndsekwubqvbb128785 0.3 ml EPINEPHrine 1 mg/ml auto-injector (20 sources)alpha-Adrenergic Agonist, beta-Adrenergic Agonist, Catecholamine Start: 69-15-8670DSJRYSNxcia (EPIPEN) 0.3 mg/0.3 mL auto-injector Indications: Allergic reaction, sequela 0.3 mL (0.3 mg total) by other route as needed (exposure to allergen). 2 each 1 08/26/2024 ActiveStart: 06-07-2022 End: 12-30-6506UVGIPPAmpnn (EPIPEN) 0.3 mg/0.3 mL auto-injector 0.3 mL (0.3 mg total) by other route as needed (exposure to allergen). 2 each 1 06/07/2022 04/25/2024 Discontinuedestradiol 1 mg oral tablet (20 sources)EstrogenStart: 05-15-2024 End: 98-49-8494xcmw 1 tablet by mouth in the morningestradioL (ESTRACE) 1 mg tablet Indications: Menopausal symptoms Take 1 tablet (1 mg total) by mouth in the morning. 30 tablet 3 05/15/2024 ActiveStart: 04-15-2024 End: 69-61-2371xybojlxsF (VIVELLE-DOT) 0.05 mg/24 hr Indications: Menopausal symptoms Place 1 patch on the skin 2 (two) times a week. 8 patch 04/15/2024 04/25/2024 DiscontinuedStart: 04-11-2024 End: 72-34-0399hrnwwdamL (VIVELLE-DOT) 0.0375 mg/[address] 1 patch [...] between applications chicho particular site.Start: 06-29-2023 End: 54-83-8055dnge 1 tablet by mouth once daily in the morningestradiol (Estrace) 1 MG tablet Indications: Vaginal discharge , Pelvic pain in female take 1 tablet by mouth every morning 30 tablet 3 06/29/2023 02/28/2024 Discontinuedfluticasone propionate 0.05 mg/actuat metered dose nasal spray (20 sources)CorticosteroidStart: 24-30-4907veve 1 spray(s) nasal route every other dayfluticasone propionate (FLONASE) 50 mcg/actuation nasal spray Indications: Seasonal allergic rhinitis, unspecified trigger administer 1 spray IN EACH NOSTRIL EVERY OTHER DAY 16 g 2 06/10/2024 ActiveStart: 36-12-1020tzyu 1 spray(s) nasal route once dailyfluticasone (Flonase) 50 MCG/ACT nasal spray Administer 1 spray into each nostril Daily 06/10/2024 ActiveStart: 06-06-2024 End: 25-82-3499cpib 1 spray(s) nasal route every other dayfluticasone propionate (FLONASE) 50 mcg/actuation nasal spray Indications: Seasonal allergic rhinitis, unspecified trigger Administer 1 spray into each nostril every other day. 18.2 mL 2 06/06/2024 06/10/2024 Avnsbkxkreiqmmyziwihsul-huafwsskz-llzldexq (TRELEGY ELLIPTA) 200-62.5-25 mcg blister with device (20 sources)Start: 03-20-2024 End: 20-48-3390rnok 1 puff(s) by inhalation in the morning psdyzlxcuej-zkovsivrp-eoncgukv (TRELEGY ELLIPTA) 200-62.5-25 mcg blister with device Indications: Moderate asthma with acute exacerbation, unspecified whether persistent Inhale 1 puff in the morning.60 each 03/20/2024 12/10/2024 DiscontinuedStart: 12-02-0508rjcr 1 puff(s) by inhalation in the morning laezbigunrq-fcpthgtzr-kroumcmm (TRELEGY ELLIPTA) 200-62.5-25 mcg blister with device Indications: Moderate asthma with acute exacerbation, unspecified whether persistent Inhale 1 puff in the morning.60 each 03/20/2024Start: 03-20-2024 take 1 puff(s) by inhalation in the ifrhxvjyudlnnvyaiq-dlsfgffze-izgqigtb (TRELEGY ELLIPTA) 200-62.5-25 mcg blister with device Indications: Moderate asthma with acute exacerbation, unspecified whether persistent Inhale 1 puff in the morning.60 each 11 03/20/2024 Dzevyxdmpieqzuxan-smocskzup-nnngkfjf (TRELEGY ELLIPTA) 200-62.5-25 mcg blister with device (5 sources)Start: 02-35-8475rzgs 1 puff(s) by mouth in the morning fgqpgeneiet-yxnyizzck-yqojdsor (TRELEGY ELLIPTA) 200-62.5-25 mcg blister with device Indications: Moderate asthma with acute exacerbation, unspecified whether persistent INHALE 1 PUFF BY MOUTH IN THEMORNING 60 each 12/10/2024 Wspfls18 actuat formoterol fumarate 0.005 mg/actuat / mometasone furoate 0.1 mg/actuat metered dose inhaler (20 sources)Corticosteroid, beta2-Adrenergic AgonistStart: 04-26-2023 End: 72-90-9529ubfo 2 puff(s) by inhalation in the morningDulera 100-5 MCG/ACT inhaler Inhale 2 puffs in the morning and 2 puffs before bedtime. 04/26/2023 Discontinuedfurosemide 40 mg oral tablet (10 sources)Loop DiureticStart: 01-23-2024 End: 63-90-7199ynfz 1 tablet by mouth once daily as needed for edemafurosemide (Lasix) 40 MG tablet Indications: Generalized edema Take 1 tablet (40 mg) by mouth Dailyas needed (Edema) 30 tablet 3 01/23/2024 02/28/2024 Xgvkllvxwwmg80 hr guaiFENesin 600 mg extended release oral tablet (9 sources)Start: 10-24-2024 End: 90-30-3882kofp 1 tablet by mouth onceguaiFENesin (MUCINEX) 600 mg tablet extended release 12hr Take 1 tablet (600 mg total) by mouth every 12 (twelve) hours for 10 days. 20 tablet 10/24/2024 11/03/2024 ActiveStart: 04-21-2022 End: 39-20-5594echh 1 tablet by mouth onceguaiFENesin (MUCINEX) 600 mg tablet extended release 12hr Take 1 tablet (600 mg total) by mouth every 12 (twelve) hours. 60 tablet 1 04/21/2022 03/25/2024 Discontinued (Therapy completed) Hydrocortisone (3 sources)CorticosteroidStart: 09-25-2023 End: 20-28-6713Jtxomhnqkptlxz 2 % cream Indications: Rash Apply 1 application topically in the morning and 1 application before bedtime. 28 g 09/25/2023 10/25/2023 Activehydrocortisone 10 mg/ml / neomycin 3.5 mg/ml / polymyxin b 62251 unt/ml otic solution (1 source)Aminoglycoside Antibacterial, Polymyxin-class Antibacterial, CorticosteroidStart: 10-24-2024 End: 26-34-3361yrpnvohp-polymyxin-HC (CORTISPORIN) otic solution Indications: Left otitis media, unspecified otitis media type Administer 3 drops into the left ear 3 (three) times a day for 7 days. 10 mL Active ibuprofen 800 mg oral tablet (20 sources)Nonsteroidal Anti-inflammatory DrugStart: 41-16-8769hteo 1 tablet by mouth every six hours as needed for painibuprofen 800 MG tablet Take 800 mg by mouth every 6 (six) hours if needed for moderate pain 04/15/2024 ActiveStart: 04-08-2024 End: 15-97-6654ctac 1 tablet by mouth every six hours as needed for duwh754 mg, oral, Every 6 hours PRN, moderate pain - pain scale 4-6, Starting on Mon04/08/24 at 1825, Look-alike/sound-alike medication - verify indication for use. Take/Give with food or milk.Start: 02-10-2024 End: 74-46-7329ktsf 1 tablet by mouth three times dailyibuprofen (MOTRIN) 800 mg tablet Indications: Post-op pain Take 1 tablet (800 mg total) by mouth 3 ( three) times a day. 21 tablet 04/15/2024 Activeketoconazole 20 mg/ml medicated shampoo (20 sources)Azole AntifungalStart: 80-03-1335tyrzoqgxtiuy (NIZORAL) 2 % shampoo Apply 1 Application topically 2 (two) times a week. Apply to damp skin, lather, leave on 5 minutes, and rinse 120 mL 04/25/2024 ActiveStart: 11-26-2021 End: 19-26-7917iagggsucvioj (NIZORAL) 2 % shampoo APPLY TO AFFECTED AREA(S) LATHER AND LEAVE IN PLACE FOR 5 MINUTES AND THEN RINSE OFF WITH WATER. DO THIS 2 TIMES A WEEK FOR 4 WEEKS 120 mL 11/26/2021 04/25/2024 Ngtvnwcjejxm614 actuat levalbuterol 0.045 mg/actuat metered dose inhaler (9 sources)beta2-Adrenergic AgonistStart: 23-99-9632ctpz 1-2 puff(s) by inhalation every four hours as needed for wheezinglevalbuterol (XOPENEX HFA) 45 mcg/actuation inhaler Indications: Moderate persistent asthma without complication Inhale 1-2 puffs every 4 (four) hours as needed for wheezing. 15 g 11 12/20/2024 ActiveStart: 01-27-2022 End: 86-15-0717bczm 1-2 puff(s) by inhalation every four hours as needed for wheezinglevalbuterol (XOPENEX HFA) 45 mcg/actuation inhaler Inhale 1-2 puffs every 4 (four) hours as neededfor wheezing. 15 g 1 01/27/2022 03/25/2024 Discontinued (Therapy completed)lidocaine 0.05 mg/mg topical ointment (20 sources)Antiarrhythmic, Amide Local AnestheticStart: 67-07-6986krihxpfhu (XYLOCAINE) 5 % ointment Indications: Post-operative pain Apply 1 Application topically as needed for pain. 35.44 g 04/24/2024 ActiveStart: 10-20-2021 lidocaine 4 % external patch 1 patchloperamide hydrochloride 2 mg oral capsule (1 source)Opioid AgonistStart: 85-57-2587uxqngulvoh (IMODIUM) capsule 2 mg loratadine 10 mg oral tablet (19 sources)Start: 17-57-5607lyrb 1 tablet by mouth once daily as needed loratadine (CLARITIN) 10 mg tablet Indications: Seasonal allergic rhinitis, unspecified trigger Take 1 tablet (10 mg total) by mouth daily as needed for allergies. 90 tablet 1 06/06/2024 Mhsgrp28 hr loratadine 10 mg / pseudoephedrine sulfate 240 mg extended release oral tablet (6 sources)alpha-Adrenergic AgonistStart: 72-85-3178nmvl 1 tablet by mouth once in the morning, then take 1 tablet by mouth every twenty-four hoursloratadine- pseudoephedrine (CLARITIN-D 24-hour) 10-240 mg per 24 hr tablet Indications: Moderate persistent asthma without complication , Seasonal allergic rhinitis, unspecified trigger Take 1 tabletby mouth in the morning. 30 tablet 2 12/20/2024 ActiveStart: 05-21-2024 End: 97-57-2961nznw 1 tablet by mouth once in the morning, then take 1 tablet by mouth every twenty-four hoursloratadine-pseudoephedrine (CLARITIN-D 24-hour) 10-240 mg per 24 hr tablet Indications: Acute pansinusitis, recurrence not specified Take 1 tablet by mouth in the morning for 21 days. 21 tablet 202406/11/2024 ActiveLumateperone Tosylate (Caplyta) 10.5 MG capsule (11 sources) End: 09-02-0432wstx 1 capsule by mouth in the morningLumateperone Tosylate (Caplyta) 10.5 MG capsule Take 10.5 mg by mouth in the morning. 01/09/2024 Dis continuedtake 1 capsule by mouth in the morningLumateperone Tosylate (Caplyta) 10.5 MG capsule Take 10.5 mg by mouth in the morning. Activemagnesium oxide 400 mg oral capsule (20 sources)Start: 70-17-7746xjxj 1 capsule by mouth once daily at bedtime magnesium oxide 400 mg magnesium cap Take 1 capsule by mouth daily at bedtime. 90 capsule 3 06/04/2024 ActiveStart: 07-10-2023 End: 23-29-8748tptm 1 capsule by mouth once daily at bedtimemagnesium oxide 400 mg magnesium cap Take 1 capsule by mouth daily at bedtime. 90 capsule 3 07/10/19 24 05/31/2024 DiscontinuedComment on above:magnesium 400 mg (as magnesium oxide) capsulemethocarbamol 500 mg oral tablet (3 sources)Muscle RelaxantStart: 09-12-2022 End: 08-16-8791mgaf 1 tablet by mouth twice dailymethocarbamol (ROBAXIN) 500 mg tablet Take 1 tablet by mouth twice daily. 60 tablet 2 09/12/2022 10/12/2022 Discontinued (Lack of Efficacy)Comment on above:Take 1 tablet by mouth twice daily.metroNIDAZOLE 500 mg oral tablet (3 sources)Nitroimidazole AntimicrobialStart: 07-01-2024 End: 61-78-7905wroq 1 tablet by mouth in the morningmetroNIDAZOLE (Flagyl) 500 MG tablet Indications: BV (bacterial vaginosis) Take 1 tablet (500 mg) by mouth in the morning and 1 tablet (500 mg) before bedtime. Do all this for 7 days. Do not drink alcohol while taking this medication. 14 tablet 07/01/2024 07/08/2024 ActiveStart: 04-08-2024 End: 26-44-4347330 mg, intravenous, at 100 mL/hr, Administer over 60 Minutes, Once, On Mon04/08/24 at 1450, For 1 dose, Look-alike/sound-alike medication - verify indication for use., Indication: Intra-abdominalmineral oil 0.03 mg/mg / petrolatum 0.94 mg/mg ophthalmic ointment (1 source)Start: 94-08-3877abctn petrolatum-mineral oiL (SYSTANE NIGHTTIME) 94-3 % ointment Indications: Watery eyes Administer 1 Application (0.25 inches total) to both eyes nightly. 3.5 g 1 12/20/2024 Activemupirocin 0.02 mg/mg topical ointment (13 sources)RNA Synthetase Inhibitor AntibacterialStart: 66-56-0707gynfhwslg (BACTROBAN) 2 % ointment Indications: Eye infection, bilateral Apply 1 Application topically in the morning and 1 Application before bedtime. 22 g 1 07/24/2024 ActiveStart: 05-02-2024 End: 31-08-4212wxalaoqky (BACTROBAN) 2 % ointment Indications: Postoperative infection, unspecified type, subsequent encounter Apply 1 Application topically in the morning and 1 Application before bedtime. Do all this for 7 days. 30 g 05/02/2024 05/02/2024 Discontinued (Reorder)Nirmatrelvir&Ritonavir 300/100 (Paxlovid, 300/100,) 20 x 150 MG & 10 x 100MG tablet therapypack (3 sources)Start: 12-12-2023 End: 50-01-5712Mbtkklrvyawz&Ritonavir 300/100 (Paxlovid, 300/100,) 20 x 150 MG & 10 x 100MG tablet therapypack Indications: COVID-19 Take 1 each by mouth See administration instructions 1 each 12/12/2023 01/09/2024 DiscontinuedStart: 82-01-3494Uvqxrcubqarg&Ritonavir 300/100 (Paxlovid, 300/100,) 20 x 150 MG & 10 x 100MG tablet therapypack Indications: COVID-19 Take 1 each by mouth See administration instructions 1 each 12/12/2023 Activeomeprazole 40 mg delayed release oral capsule (20 sources)Proton Pump InhibitorStart: 03-20-2024 End: 06-71-2915zyvm 1 capsule by mouth at bedtimeomeprazole (PriLOSEC) 40 mg capsule Indications: Gastroesophageal reflux disease without esophagitis Take 1 capsule (40 mg total) by mouth in the morning and at bedtime. 60 capsule 3 12/17/2024 ActiveStart: 01-27-2022 End: 36-69-7952jqsn 1 capsule by mouth in the morningomeprazole (PriLOSEC) 20 mg capsule Take 1 capsule (20 mg total) by mouth in the morning. 30 capsule 1 01/27/2022 04/08/2024 Discontinued (Therapy completed)ondansetron (ZOFRAN-ODT) disintegrating tablet 4 mg (1 source)Start: 98-40-3899pgmugeivhwl (ZOFRAN-ODT) disintegrating tablet 4 mg12 hr orphenadrine citrate 100 mg extended release oral tablet (20 sources)Muscle RelaxantStart: 03-17-2023 End: 80-13-6031ikzf 1 tablet by mouth twice daily as needed, then take 1 tablet by mouth every twelve hours as neededorphenadrine (Norflex) 100 MG 12 hr tablet Take 100 mg by mouth 2 (two) times a day as needed 04/26/2023 02/28/2024 DiscontinuedStart: 40-68-1357gxez 1 tablet by mouth every twelve hours as needed orphenadrine ER (NORFLEX) 100 mg tablet Take 1 tablet by mouth two times a day as needed. 30 tablet5 12/12/2022 ActiveComment on above:Take 1 tablet by mouth two times a day as needed.oxyCODONE hydrochloride 5 mg oral tablet (20 sources)Opioid AgonistStart: 04-29-2024 End: 55-28-4860yvhj 1 tablet by mouth every six hours [...] 12 tablet 04/29/2024 05/02/2024 ActiveStart: 03-28-2024 End: 24-86-9867uumn 1 tablet by mouth every four hours [...] glycol 3 mg/ml ophthalmic solution (2 sources)Start: 96-21-7105wvv 400-propylene glycol, PF, (SYSTANE ULTRA, PF,) 0.4-0.3 % dropperette Indications: Watery eyes Administer 1 drop to both eyes 3 (three) times a day. 30 each 1 12/20/2024 ActiveStart: 12-20-2024 End: 74-61-2446djo 400-propylene glycol, PF, (SYSTANE ULTRA, PF,) 0.4-0.3 % dropperette Indications: Watery eyes Administer 1 drop to both eyes as needed (for watery eyes and burning). 30 each 1 12/20/2024 12/20/2024 Discontinued polymyxin b 39872 unt/ml / trimethoprim 1 mg/ml ophthalmic solution (3 sources)Dihydrofolate Reductase Inhibitor Antibacterial, Polymyxin-class AntibacterialStart: 54-87-5884pgpclxuztzrs-polymyxin b (Polytrim) ophthalmic solution 07/24/2024 ActiveStart: 07-24-2024 End: 01-22-3958komebewnabhp-polymyxin B (POLYTRIM) 10,000 unit- 1 mg/mL drops Indications: Eye infection, bilateral Administer 1 drop to both eyes in the morning and 1 drop at noon and 1 drop in the evening and 1 drop before bedtime. Do all this for 5 days. 10 mL 07/24/2024 07/29/2024 Activemicroencapsulated potassium chloride 20 meq extended release oral tablet (2 sources)Start: 03-26-2024 End: 21-16-2768tdio 1 tablet by mouth in the morningpotassium chloride (KLOR-CON M 20) 20 MEQ CR tablet Take 1 tablet (20 mEq total) by mouth in the morning for 2 days. 2 tablet 03/26/2024 03/28/2024 ActivepredniSONE 10 mg oral tablet (18 sources)Start: 00-92-4855rafordFDCZ (DELTASONE) 10 mg tablet Indications: Moderate persistent asthma without complication Take 3 tablets once daily for 3 days, then 2 tablets once daily for 3 days then 1 tablet daily 19 tablet 12/20/2024 ActiveStart: 10-24-2024 End: 27-08-9237wgwb 2 tablets by mouth in the morningpredniSONE (DELTASONE) 20 mg tablet Indications: Mild asthma with exacerbation, unspecified whether persistent Take 2 tablets (40 mg total) by mouth in the morning for 5 days. 10 tablet 10/24/2024 10/29/2024 ActiveStart: 05-21-2024 End: 96-24-7546kuav 1 tablet by mouth in the morningpredniSONE (DELTASONE) 20 mg tablet Indications: Moderate persistent asthma with acute exacerbationTake 1 tablet (20 mg total) by mouth in the morning for 5 days. 5 tablet 05/21/2024 05/26/2024 ActiveStart: 01-23-2024 End: 47-30-6580ycpb 1 tablet by mouth once dailypredniSONE (Deltasone) 50 MG tablet Indications: Mild persistent asthma with (acute) exacerbation (CMS/HCC) Take 1 tablet (50 mg) by mouth Daily for 6 days 6 tablet 01/23/2024 01/29/2024 ActiveStart: 38-15-6043hncx 6 tablets by mouth once daily, then [...] x 3 days 39 tablet 11/15/2023 ActiveStart: 84-33-1821effu 6 tablets by mouth once daily, then [...] days 39 tablet 11/15/2023 ActiveStart: 10-10-2023 End: 80-65-0942emgh 6 tablets by mouth once daily, then [...] mg oral capsule (2 sources)ProgesteroneStart: 09-03-2024 End: 11-21-9315upfy 1 capsule by mouth once dailyprogesterone (Prometrium) 100 MG capsule Indications: Hot flashes due to surgical menopause Take 1 capsule (100 mg) by mouth Daily 30 capsule 11 09/03/2024 09/03/2025 Activepromethazine hydrochloride 25 mg oral tablet (20 sources)PhenothiazineStart: 06-04-2024 End: 00-59-4425rkoc 1 tablet by mouth every four hours as needed for nausea promethazine (PHENERGAN) 25 mg tablet Indications: Intractable chronic migraine without aura and without status migrainosus Take 1 tablet by mouth every 4 hours as needed. FOR NAUSEA 90 tablet 5 06/04/2024 ActiveStart: 08-18-2023 End: 73-38-1130thtv 1 tablet by mouth every four hours as needed for nausea promethazine (PHENERGAN) 25 mg tablet Indications: Intractable chronic migraine without aura and without status migrainosus Take 1 tablet by mouth every 4 hours as needed. FOR NAUSEA 90 tablet 5 11/10/2023 05/31/2024 DiscontinuedStart: 05-13-2023 End: 34-31-7705mzrp 1 tablet by mouth every six hours as needed for nausea and vomitingpromethazine (PHENERGAN) 25 mg tablet Take 1 tablet (25 mg total) by mouth every 6 (six) hours as needed for nausea or vomiting. 15 tablet 08/10/2023 04/25/2024 DiscontinuedStart: 03-17-2023 End: 89-53-6288rwtr 1 tablet by mouth every six hours as neededpromethazine (Phenergan) 12.5 MG tablet Take 12.5 mg by mouth every 6 (six) hours if needed 04/02/2023 02/28/2024 DiscontinuedStart: 06-22-2022 End: 88-13-3214uoks 1 tablet by mouth every six hours as neededpromethazine (PHENERGAN) 12.5 mg tablet Take 1 tablet by mouth every 6 hours as needed. 90 tablet Active End: 19-88-2593nbai 25 mg rectal route every six hours as needed for nausea and vomitingpromethazine (Phenergan) 25 MG suppository Insert 25 mg into the rectum every 6 (six) hours if needed for nausea or vomiting ActiveComment on above:Take 12.5 mg by mouth every 6 hours as needed.Take 1 tablet by mouth every 6 hours as needed.72 hr scopolamine 0.0139 mg/hr transdermal system (20 sources)AnticholinergicStart: 60-31-2826xsksdpypanj (TRANSDERM-SCOP) patch 1.5 mg/72 hr (delivers 1 mg over 3 days) Indications: Intractable chronic migraine without aura and with status migrainosus , Nausea Apply 1 Patch as directed every72 hours. APPLY 1 DISC BEHIND THE EAR AT LEAST 4 HOURS PRIOR TO EXPOSURE AND EVERY 3 DAYS NEEDED. 4 Patch 2 05/10/2024 ActiveStart: 03-18-2024 End: 57-74-5583aulyw 1 dose transdermal route once dailyscopolamine (TRANSDERM- SCOP) 1 mg/[address] 1 patch on the skin every third day. 05/10/2024 Active scopolamine (Transderm-Scop) 1 mg/72 hr patch [address] 1 patch on the skin every 3rd (third) day Activeterconazole 4 mg/ml vaginal cream (1 source)Azole AntifungalStart: 01-15-2024 End: 17-99-8364svnzrtyfhdz (Terazol 7) 0.4 % vaginal cream Indications: Yeast infection Insert 1 applicator into the vagina at bedtime for 7 days 45 g 01/15/2024 01/22/2024 Btwpeg50 actuat tiotropium 0.65527 mg/actuat inhalation spray (20 sources)AnticholinergicStart: 04-26-2023 End: 97-92-0358Ylplxld Respimat 1.25 MCG/ACT inhaler inhale 2 puffs by mouth once daily 04/26/2023 02/28/2024 DiscontinuedtraMADol hydrochloride 50 mg oral tablet (8 sources)Opioid AgonistStart: 01-09-2024 End: 47-08-3218cohg 1 tablet by mouth four times daily as needed for pain traMADol (Ultram) 50 MG tablet Indications: Pain, dental Take 1 tablet (50 mg) by mouth 4 (four) times a day as needed for severe pain for up to 7 days 28 tablet 01/22/2024 01/29/2024 Activeubrogepant 100 mg oral tablet (20 sources)Start: 05-03-2024 End: 71-54-7577xxyxjuebwx (UBRELVY) 100 mg tablet 05/03/2024 Activezavegepant (ZAVZPRET) 10 mg/actuation nasal spray (6 sources)Start: 21-68-8574coppshicby (ZAVZPRET) 10 mg/actuation nasal spray Indications: Intractable chronic migraine withoutaura and with status migrainosus Use one nasal spray at migraine onset. May use once per 24 hours. 6 each 08/08/2024 8:59 AM EDT 08/02/2024 ActiveStart: 86-99-3809mnndcndzkk (ZAVZPRET) 10 mg/actuation nasal spray Indications: Intractable chronic migraine withoutaura and with status migrainosus Use one nasal spray at migraine onset. May use once per 24 hours. 6 each 08/02/2024 ActiveZOLMitriptan 5 mg/actuat nasal spray (20 sources)Serotonin-1b and Serotonin-1d Receptor AgonistStart: 06-04-2024 ZOLMitriptan (ZOMIG) 5 mg nasal spray Use 1 [place] in the nose as needed at onset of migraine headache. If symptoms persist or return, may repeat dose in other nostril after 2 hours. Maximum of 2 sprays per 24 hours 12 each 06/04/2024 ActiveStart: 03-17-2023 End: 25-20-2716HYPTxvkpaegc (ZOMIG) 5 mg nasal spray Use 1 [place] in the nose as needed at onset of migraine headache. If symptoms persist or return, may repeat dose in other nostril after 2 hours. Maximum of 2 sprays per 24 hours 12 Each 5 01/30/2024 05/31/2024 DiscontinuedStart: 58-05-2944TZPRarhjvhzh (ZOMIG) 5 mg nasal spray Use 1 [place] in the nose as needed at onset of migraine headache. If symptoms persist or return, may repeat dose in other nostril after 2 hours. Maximum of 2 sprays per 24 hours 10 Each 2 06/24/2022 ActiveStart: 06-24-2022 take 1 spray(s) nasal route every twenty-four hours as neededZOLMitriptan (ZOMIG) 5 mg nasal spray Use 1 [place] in the nose as needed. SPRAY IN 1 NOSTRIL AT ONSET OF MIGRAINE HEADACHE. If symptoms persist or return, may repeat dose after 2 hours. Maximum: 5 mg/dose; 10 mg per 24 hours 10 Each 2 06/24/2022 ActiveComment on above:Use 1 [place] in the nose as needed. SPRAY IN 1 NOSTRIL AT ONSET OF MIGRAINE HEADACHE. If symptoms persist or return, may repeat dose after 2 hours. Maximum: 5 mg/dose; 10 mg per 24 hoursUse 1 [place] in the nose as needed at onset of migraine headache. If symptoms persist or return, mayrepeat dose in other nostril after 2 hours. Maximum of 2 sprays per 24 hours Completed/Discontinued Medications MedicationDrug Class(es)DatesSig (Normalized)Sig (Original)acetaminophen 500 mg oral tablet (20 sources)Start: 04-08-2024 End: 55-09-1162mpdz 1 tablet by mouth every six hours as needed for pain1,000 mg, oral, Every 6 hours PRN, mild pain - pain scale 1-3, Starting on Mon04/08/24 at 1825Start: 00-59-5677oaci 2 tablets by mouth every six hours as needed for painacetaminophen (TYLENOL EXTRA STRENGTH) 500 mg tablet Take 2 tablets (1,000 mg total) by mouth every6 (six) hours as needed for pain. 30 tablet 2 03/28/2024 ActiveStart: 97-87-5466befx 1 tablet by mouth every six hours as needed Acetaminophen Extra Strength 500 MG tablet Take 500 mg by mouth every 6 (six) hours if needed (pain) 03/28/2024 ActiveStart: 30-81-8677qunetwswpehaa (TYLENOL) tablet 1,000 mgStart: 10-19-2021 End: 73-91-5247qaallsnfltewe (TYLENOL) tablet 650 mgacetaminophen 300 mg / codeine phosphate 30 mg oral tablet (3 sources)Opioid AgonistStart: 04-04-2024 End: 07-33-5267eomf 1 tablet by mouth every six hours as neededacetaminophen- codeine (TYLENOL #3) 300-30 mg per tablet Take 1 tablet by mouth every 6 (six) hours as needed. 04/04/2024 04/15/2024 Discontinued (Alternate therapy) ARIPiprazole 10 mg oral tablet (8 sources)Atypical Antipsychotic End: 57-07-4965hlhp 1 tablet by mouth in the morningARIPiprazole [...] mg oral tablet (2 sources)Muscle Relaxant End: 02-49-1125ehtq 1 tablet by mouth three times dailycyclobenzaprine [...] medication -verify indication for use.Start: 04-08-2024 End: 10-54-563719 mg, intravenous, Once, On Mon04/08/24 at 1450, For 1 dose, Look-alike/sound-alike medication - verify indication for use.Start: 01-22-2024 End: 98-09-937886 mg, INTRAVENOUS, NEEDED, 2 doses, Starting on Mon01/22/24 at 1328, Until Mon01/22/24 at 1429,Sedation/Dystonia/Akathisia/Anxiety 3rd line Start: 01-19-2024 End: 37-88-838141 mg, INTRAVENOUS, NEEDED, 2 doses, Starting on Mon01/19/24 at 0909, Until Mon01/19/24 at 1012, Sedation/Dystonia/Akathisia/Anxiety 3rd lineStart: 01-17-2024 End: 70-29-859642 mg, INTRAVENOUS, NEEDED, 2 doses, Starting on Mon01/17/24 at 0815, Until Mon01/17/24 at 0935, Sedation/Dystonia/Akathisia/Anxiety 3rd lineStart: 01-05-2024 End: 44-41-455359 mg, INTRAVENOUS, NEEDED, 1 dose, Starting on Mon01/05/24 at 1327, Until Mon01/05/24 at 1330, Administer per hypersensitivity/anaphylaxis grading in nursing communicationStart: 01-05-2024 End: 25-18-506315 mg, INTRAVENOUS, NEEDED, 2 doses, Starting on Mon01/05/24 at 1235, Until Mon01/05/24 at 1559, Sedation/Dystonia/Akathisia/Anxiety 3rd lineStart: 10-13-2023 End: 36-05-245795 mg, INTRAVENOUS, NEEDED, 1 dose, Starting on Mon10/13/23 at 1308, Until Mon10/13/23 at 1310, Administer per hypersensitivity/anaphylaxis grading in nursing communicationStart: 12-24-2020 End: 05-34-7439skraivnwlcDODMD (BENADRYL) injection 50 mgdocusate sodium 50 mg / sennosides, group home 8.6 mg oral tablet (11 sources)Start: 03-28-2024 End: 76-51-6557qonq 1 tablet by mouth at bedtimesennosides-docusate sodium (SENNA WITH DOCUSATE SODIUM) 8.6-50 mg Take 1 tablet by mouth in the morning and at bedtime. 30 tablet 1 03/28/2024 04/25/2024 Discontinued0.4 ml enoxaparin sodium 100 mg/ml prefilled syringe (1 source)Low Molecular Weight HeparinStart: 86-69-4506kfsgou 40 mg by subcutaneous injection once daily40 [...] 100 mL (VYEPTI) (4 sources)Start: 08-01-2024 End: 67-83-5913350 mg, INTRAVENOUS, at 200 mL/hr, Administer over 30 Minutes, ONCE, 1 dose, On Mon08/01/24 at 1100, EXP: Administer with 0.2 micron filter.Start: 05-02-2024 End: 70-22-6748195 mg, INTRAVENOUS, at 200 mL/hr, Administer over [...] 140 mg/ml auto-injector (20 sources)Start: 07-10-2023 End: 75-82-1107sxnsqe 1 mL by subcutaneous injection every montherenumab-aooe (AIMOVIG AUTOINJECTOR) 140 mg/mL auto-injector Inject 1 mL subcutaneously once every month. Do not shake. 1 Each 07/10/2023 09/19/2023 DiscontinuedStart: 03-23-2023 End: 98-46-3313twjgje 1 mL by subcutaneous injection every montherenumab-aooe (AIMOVIG AUTOINJECTOR) 70 mg/mL auto-injector Inject 1 mL subcutaneously once every month. Do not shake. 1 Each 07/10/2023 07/10/2023 DiscontinuedComment on above:Inject 1 mL subcutaneously once every month. Do not shake.2 ml famotidine 10 mg/ml injection (1 source)Histamine-2 Receptor AntagonistStart: 08-01-2024 End: 01-52-469585 mg, INTRAVENOUS, NEEDED, 1 dose, Starting on Meg 08/01/24 at 1056, Until Meg 08/01/24 at 1146, Heartburn, REFRIGERATEfluconazole 150 mg oral tablet (6 sources)Azole AntifungalStart: 07-01-2024 End: 02-04-8804exsz 1 tablet by mouth once, then take 1 tablet by mouth once fluconazole (Diflucan) 150 MG tablet Indications: Yeast infection Take 1 tablet (150 mg) by mouth 1(one) time for 1 dose This is a 1 time dose, take single tablet by mouth. 1 tablet 1 07/01/2024 07/01/2024 ExpiredStart: 05-21-2024 End: 98-51-9568vkfh 1 tablet by mouth oncefluconazole (DIFLUCAN) 150 mg tablet Indications: Antibiotic-induced yeast infection Take 1 tablet (150 mg total) by mouth once for 1 dose. 1 tablet 05/21/2024 05/21/2024 ActiveStart: 04-02-2024 End: 53-34-7330jakg 1 tablet by mouth once, then take 1 tablet by mouth once fluconazole (Diflucan) 150 MG tablet Indications: Yeast infection Take 1 tablet (150 mg) by mouth 1(one) time for 1 dose This is a 1 time dose, take single tablet by mouth. 1 tablet 1 04/02/2024 04/02/2024 ExpiredStart: 01-24-2024 End: 57-62-6741wlto 1 tablet by mouth oncefluconazole (Diflucan) 150 MG tablet Indications: Rash , Yeast dermatitis Take 1 tablet (150 mg) bymouth every 3rd (third) day for 2 doses 2 tablet 01/24/2024 01/28/2024 ActiveFLUoxetine 20 mg oral capsule (2 sources)Serotonin Reuptake Inhibitor End: 62-84-9453ucrn 3 capsules by mouth once dailyFLUoxetine (PROZAC) 20 MG capsule Take 60 mg by mouth daily 0 10/20/2021 Discontinued (Stop Taking at Discharge)30 actuat fluticasone furoate 0.1 mg/actuat / umeclidinium 0.0625 mg/actuat / vilanterol 0.025 mg/actuat dry powder inhaler (5 sources)Anticholinergic, Corticosteroid, beta2-Adrenergic Agonist End: 21-92-4113pnnucstgoyg-umeclidin-vilanter (TRELEGY ELLIPTA) 100-62.5-25 mcg blister with device daily. 03/20/2024 Discontinued1.5 ml fremanezumab-vfrm 150 mg/ml auto-injector (12 sources)Start: 11-25-2020 End: 85-76-2285znplhkbgrquw-vfrm 225 mg/1.5 mL auto-injector Indications: Chronic mixed headache syndrome Inject 225 mg under the skin every 28 days. 1.5 mL 4 11/25/2020 03/25/2024 Discontinued (Therapy completed)Comment on above: Ajovy 225 mg/1.5 mL subcutaneous auto-injectorgabapentin 600 mg oral tablet (6 sources)Anti-epileptic AgentStart: 44-71-2298pwmdhutyqq (NEURONTIN) 600 mg tablet End: 50-01-2059shrkcyrldj (NEURONTIN) 600 MG tablet Take 300 mg by mouth 3 times daily. 0 10/20/2021 Discontinued (Stop Taking at Discharge)take 1 tablet by mouth once dailygabapentin (NEURONTIN) 600 MG tablet Take 600 mg by mouth nightly. 0 Activegadoteridol (PROHANCE) injection 20 mL (1 source)Start: 10-19-2021 End: 00-61-0430acornfmezdk (PROHANCE) injection 20 mL1 ml galcanezumab-gnlm 120 mg/ml auto-injector (20 sources)Start: 09-27-2022 End: 15-31-9860zycmgq 1 mL by subcutaneous injection every monthgalcanezumab- gnlm (EMGALITY PEN) 120 mg/mL pen Inject 1 mL subcutaneously once every month. Do not shake. 1 Each 11 09/27/2022 11/10/2022 Discontinued (Course of therapy completed)Start: 09-27-2022 End: 11-80-4737cxbipy 2 doses by subcutaneous injection every monthgalcanezumab- gnlm 120 mg/mL subcutaneous pen injector (EMGALITY) Inject 2 Pens subcutaneously one time only for 1 dose. For first month only. Refrigerate. Do not shake. 2 Each 0 09/27/2022 3Discontinued (Course of therapy completed)Start: 70-38-5243akluni 1 mL by subcutaneous injection every monthgalcanezumab-gnlm (EMGALITY PEN) 120 mg/mL pen Inject 1 mL subcutaneously once every month. Do not shake. 1 Each 2 06/24/2022 ActiveStart: 00-40-6016ykpbzg 2 doses by subcutaneous injection every monthgalcanezumab-gnlm [...] prefilled syringe (4 sources)Opioid AgonistStart: 04-08-2024 End: 47-36-1269vmxp 1 mg intravenously every four hours as needed for pain1 mg, intravenous, Every 4 hours PRN, severe pain - pain scale 7-10, Starting on Mon04/08/24 at 1941, If IV push, administer over over 2 to 3 minutes. Look-alike/sound-alike medication - verify indication for use.Start: 04-08-2024 End: 46-10-6348ujmf 0.5 mg intravenously once0.5 mg, intravenous, Once, [...] iodine/mL 100 mL (1 source)Start: 04-08-2024 End: 32-82-5293328 mL, intravenous, Once in imaging, contrast, Starting on Mon04/08/24 at 1521, For 1 dose, VESICANT (RED)iohexoL (OMNIPAQUE) 300 mg iodine/mL 30 mL (1 source)Start: 04-08-2024 End: 67-40-1413mepv 30 mL by mouth once30 mL, oral, [...] of therapy for ketorolac (Toradol).Start: 08-01-2024 End: 04-55-602449 mg, INTRAVENOUS, ONCE, 1 dose, On Meg 08/01/24 at 1130, Ketorolac (Toradol) is indicated for the short-term (up to 5 days) management of moderately severe acute pain. Continuation of ketorolac (Toradol) beyond 5 days increases the risk of developing serious adverse events. Please verify the duration of therapy for ketorolac (Toradol)Start: 64-40-9352pzua 1 tablet by mouth every eight hours as needed for painketorolac (Toradol) 10 MG tablet Take 10 mg by mouth every 8 (eight) hours if needed for mild pain 06/22/2024 Active Start: 15-26-2576xhck 1 tablet by mouth every six hours as neededkeTORolac (TORADOL) 10 mg tablet Take 1 tablet by mouth every 6 hours as needed (severe migraine). 20 tablet 5 06/04/2024 ActiveStart: 05-02-2024 End: 33-41-618035 mg, INTRAVENOUS, ONCE, 1 dose, On Mon05/02/24 at 1200, Ketorolac (Toradol) is indicated for the short-term (up to 5 days) management of moderately severe acute pain. Continuation of ketorolac (Toradol) beyond 5 days increases the risk of developing serious adverse events. Please verify the duration of therapy for ketorolac (Toradol).Start: 05-02-2024 End: 58-60-9697lhJQLidth 30 mg injection (Toradol)Start: 04-09-2024 End: 13-37-336595 mg, intramuscular, Once, On Mon04/09/24 at 1100, For 1 dose, Look-alike/sound-alike medication -verify indication for use. Duration of therapy is not to exceed 5 days. Maximum recommended dose + 120mg/24 hours. Start: 01-22-2024 End: 01-36-565473 mg, INTRAVENOUS, ONCE, 1 dose, On 01/22/24 at 1330, Ketorolac (Toradol) is indicated for the short-term (up to 5 days) management of moderately severe acute pain. Continuation of ketorolac (Toradol) beyond 5 days increases the risk of developing serious adverse events. Please verify the duration of therapy for ketorolac (Toradol).Start: 01-19-2024 End: 93-29-627828 mg, INTRAVENOUS, ONCE, 1 dose, On Mon01/19/24 at 0930, Ketorolac (Toradol) is indicated for theshort-term (up to 5 days) management of moderately severe acute pain. Continuation of ketorolac (Toradol) beyond 5 days increases the risk of developing serious adverse events. Please verify the durat ion of therapy for ketorolac (Toradol).Start: 01-17-2024 End: 78-50-750934 mg, INTRAVENOUS, ONCE, 1 dose, On Mon01/17/24 at 0830, Ketorolac (Toradol) is indicated for theshort-term (up to 5 days) management of moderately severe acute pain. Continuation of ketorolac (Toradol) beyond 5 days increases the risk of developing serious adverse events. Please verify the durat ion of therapy for ketorolac (Toradol).Start: 01-05-2024 End: 12-02-623047 mg, INTRAVENOUS, ONCE, 1 dose, On Mon01/05/24 at 1330, Ketorolac (Toradol) is indicated for theshort-term (up to 5 days) management of moderately severe acute pain. Continuation of ketorolac (Toradol) beyond 5 days increases the risk of developing serious adverse events. Please verify the durat ion of therapy for ketorolac (Toradol)Start: 01-05-2024 End: 59-61-5969hePMXrhrx 30 mg injection (Toradol)Start: 10-13-2023 End: 57-41-120965 mg, INTRAVENOUS, ONCE, 1 dose, On Mon10/13/23 [...] the opioid, if preferred: YesStart: 10-13-2023 End: 79-97-5858tuYWRmahe 30 mg injection (Toradol)Start: 05-14-2023 End: 95-22-6085jfoz 1 tablet by mouth every eight hours as neededketorolac (Toradol) 10 MG tablet Take 1 tablet by mouth every 8 (eight) hours if needed 05/14/2023 02/28/2024 DiscontinuedStart: 05-08-2022 End: 60-34-1755lcll 1 tablet by mouth every six hours as neededkeTORolac (TORADOL) 10 mg tablet Take 1 tablet by mouth every 6 hours as needed (severe migraine). 20 tablet 5 11/10/2023 05/31/2024 DiscontinuedStart: 12-24-2020 End: 20-61-1428fobxnozeu (TORADOL) injection 15 mgComment on above:Take 1 tablet by mouth every 6 hours as needed (severe migraine).Take 10 mg by mouth. lamoTRIgine 200 mg oral tablet (20 sources)Mood Stabilizer, Anti-epileptic AgentStart: 01-29-2024 End: 65-87-2327oemz 1 tablet by mouth in the morning, then take 1 tablet by mouth at bedtimelamoTRIgine (LaMICtal) 200 mg tablet Take 1 tablet (200 mg total) by mouth in the morning and 1 tablet (200 mg total) before bedtime. 01/29/2024 10/24/2024 Discontinued (Therapy completed)Start: 05-18-2023 End: 40-73-0652zbmh 1 tablet by mouth at bedtimelamoTRIgine (LaMICtal) 200 MG tablet Take 1 tablet by mouth at bedtime 05/18/2023 01/09/2024 Discontinued Start: 02-23-2022 End: 73-28-8755ugghHBKxhre (LaMICtal) 150 mg tablet 100mg in am 150mg at HS 02/23/2022 03/25/2024 Discontinued (Dose adjustment)Start: 11-23-2021 End: 11-72-1251vvpsBFOjbwp (LAMICTAL) 150 mg tablet 11/23/2021 ActiveStart: 91-11-7662rfey 2 tablets by mouth once dailylamoTRIgine (LAMICTAL) 25 MG tablet Take 2 tablets by mouth daily 30 tablet 3 10/21/2021 ActiveStart: 10-19-2021 lamoTRIgine (LAMICTAL) tablet 50 mg End: 24-21-9753jxnhIXNavtw (LaMICtal) 50 MG tablet,disintegrating disintegrating tablet Dissolve 2 tablets (100 mgtotal) on tongue in the morning. 03/25/2024 Discontinued (Dose adjustment)levETIRAcetam 250 mg oral tablet (3 sources)Start: 39-58-1346cdoZMONUwhkgq (KEPPRA) 250 mg tablet Take 1 at bedtime. Can increase to bid after 2 weeks if tablet 2 08/08/2022 ActiveComment on above:Take 1 at bedtime. Can increase to bid after 2 weeks if neededlithium carbonate 300 mg oral tablet (20 sources)Start: 04-08-2024 End: 99-59-7373076 mg, oral, Nightly, First dose on Mon04/08/24 at 2200, Food- Drug Interaction Education Required Look-alike/sound-alike medication - verify indication for use Maintain normal daily intakes of fluids and salt (sodium) Enteral Feeding: Mix solution with 10-30 mL water prior to administering in f eeding tubeStart: 06-13-2022 End: 89-05-2095fvzfhbj carbonate 300 mg tablet 06/13/2022 ActiveStart: 83-48-4027ridi 2 tablets by mouth once dailylithium carbonate 300 mg tablet Take 2 tablets (600 mg total) by mouth nightly. 01/17/2022 ActiveStart: 01-17-2022 End: 94-77-8390ezimjpk carbonate 300 mg tablet 2 tablets (600 mg total). 01/17/2022 Active End: 35-08-9523sjbhkmp ER (Eskalith) 450 MG 12 hr tablet [place] 01/09/2024 Discontinued1 ml LORazepam 2 mg/ml injection (3 sources)BenzodiazepineStart: 04-08-2024 End: 39-10-0058jofa 1 mg intravenously once1 mg, intravenous, Once, On Mon04/08/24 at 2015, For 1 dose, Look-alike/sound-alike medication - verify indication for use;IV use requires increased monitoring of HR,BP,Respirations and Pulse Oximetry;For IV-dilute with equal volume PF sod chloride, Indication: Sedation End: 68-49-7674lotj 1 tablet by mouth twice dailyLORazepam (ATIVAN) 2 MG tablet Take 2 mg by mouth 2 times daily. 0 10/20/2021 Discontinued (Stop Taking at Discharge)lumateperone (CAPLYTA) 10.5 mg capsule (20 sources) End: 90-20-4211yapn 1 capsule by mouth once dailylumateperone (CAPLYTA) [...] mg oral tablet (8 sources)AntiemeticStart: 06-22-2022 End: 08-34-6653ksll 1 tablet by mouth three times daily [...] 80 mg/ml injection (4 sources)CorticosteroidStart: 02-09-2024 End: 37-24-9229ozmjhbXRFLOHXklgpu acetate (DEPO-Medrol) injection 80 mgStart: 02-09-2024 End: 22-08-2497dlafomDOVKEEJaacjr acetate (DEPO-Medrol) injection 80 mgStart: 02-09-2024 End: 31-93-384120 mg, Injection, Once, On Mon02/09/24 at 1130, For 1 doseStart: 02-09-2024 End: 48-87-684454 mg, Injection, Once, On Mon02/09/24 at 1130, For 1 dose2 ml midazolam 1 mg/ml injection (1 source)BenzodiazepineStart: 10-19-2021 End: 84-52-2062lgjlgqwzb PF (VERSED) injection 1 mgmontelukast 10 mg oral tablet (19 sources)Leukotriene Receptor AntagonistStart: 06-07-2022 End: 00-65-5649yjnf 1 tablet by mouth in the morningmontelukast [...] spray,non-aerosol nasal spray (6 sources)Start: 04-10-2024 End: 76-57-1041uzoqvvnt (NARCAN) 4 mg/actuation spray,non-aerosol nasal spray Administer 1 spray (4 mg total) intoalternating nostrils as needed for opioid reversal. 1 each 04/10/2024 04/25/2024 DiscontinuedStart: 77-84-5690hcyrsxhi (NARCAN) 4 mg/actuation spray,non-aerosol nasal spray Administer 1 spray (4 mg total) intoalternating nostrils as needed for opioid reversal. 1 each 04/10/2024 ActiveStart: 26-66-9445nrxxhidx (NARCAN) 4 mg/actuation spray,non-aerosol nasal spray Administer 1 spray (4 mg total) intoalternating nostrils as needed for opioid reversal. 1 each 04/10/2024naratriptan 2.5 mg oral tablet (4 sources)Serotonin-1b and Serotonin-1d Receptor AgonistStart: 50-64-0440swhw 1 tablet by mouth every four hours [...] topical powder (15 sources)Polyene AntifungalStart: 01-24-2024 End: 20-15-6721feopmyue (MYCOSTATIN) powder APPLY TO THE AFFECTED AREA(S) topically TWICE DAILY 01/24/2024 04/08/2024 Discontinued (Therapy completed) Start: 01-24-2024 End: 65-54-9276tbetkmbj (Mycostatin) 921565 UNIT/GM powder Indications: Rash , Yeast dermatitis Apply topically 2 (two) times a day 60 g 01/24/2024 02/28/2024 Discontinued2 ml ondansetron 2 mg/ml injection (20 sources)Serotonin-3 Receptor AntagonistStart: 08-01-2024 End: mg, INTRAVENOUS, EVERY 1 HOUR NEEDED, 2 doses, Starting on Mon08/02/24 at 1017, Until Mon08/02/24 at 1453, Nausea/Vomiting - First Line - ParenteralStart: 05-04-2024 End: 85-41-3716undz 1 tablet by mouth every six hours [...] dose, Administer over 2-5 minutes.Start: 02-10-2024 End: 47-10-8112rolo 1 tablet by mouth every eight hours [...] - First Line - ParenteralStart: 12-24-2020 End: 79-41-1398powxsafcagb (ZOFRAN) injection 4 mgphentermine hydrochloride 37.5 mg oral capsule (20 sources)Sympathomimetic Amine AnorecticStart: 06-06-2024 End: 10-67-2736ulej 1 capsule by mouth once daily in the morningphentermine 37.5 MG capsule Indications: Weight loss Take 1 capsule (37.5 mg total) by mouth every morning. 30 capsule 06/06/2024 10/24/2024 Discontinued (Therapy completed) Start: 03-21-2023 End: 87-19-4077istr 1 tablet by mouth once daily before [...] dissolve drug prior to administrationpolyethylene glycol 3350 68862 mg powder for oral solution (1 source)Osmotic LaxativeStart: g, Oral, DAILY PRN, Starting on Mon10/19/21 at 1226, Until Discontinued, Constipation First linetherapy for constipationprochlorperazine 5 mg/ml injectable solution (3 sources)PhenothiazineStart: 01-22-2024 End: 44-27-344646 mg, INTRAVENOUS, NEEDED, 1 dose, Starting on Mon01/22/24 at 1328, Until Mon01/22/24 at 1407, for headache; previously tolerated if given with Benadryl, Protect From LightStart: 01-19-2024 End: 32-37-933261 mg, INTRAVENOUS, NEEDED, 1 dose, Starting on Mon01/19/24 at 0909, Until Mon01/19/24 at 0951, for headache; previously tolerated if given with Benadryl, Protect From LightStart: 01-17-2024 End: 98-12-439721 mg, INTRAVENOUS, NEEDED, 1 dose, Starting on Mon01/17/24 at 0815, Until Mon01/17/24 at 0923, for headache; previously tolerated if given with Benadryl, Protect From Lightrimegepant 75 mg disintegrating oral tablet (8 sources)Start: 10-29-2020 End: 36-21-1268stsqplywyb 75 mg tablet,disintegrating Indications: Chronic mixed headache syndrome Dissolve 1 tablet on tongue daily as needed (migraines). 8 tablet 1 10/29/2020 03/25/2024 Discontinued (Therapy completed)20 ml ropivacaine hydrochloride 5 mg/ml injection (2 sources)Amide Local AnestheticStart: 08-18-2023 End: 48-94-7528YQErdxvyqof (PF) 5 mg/mL (0.5 %) 100 mg [...] hypersensitivity/anaphylaxis grading in nursing communication.Start: 04-08-2024 End: 84-33-628184 mL, intravenous, As needed, line care, Starting on Mon04/08/24 at 1521Start: 04-08-2024 End: 31-07-037048 mL, intravenous, Once in imaging, pre/post contrast, Starting on Mon04/08/24 at 1521, For 1 doseStart: 04-08-2024 End: ,000 mL, intravenous, at 3,871 mL/hr, Administer over 31 Minutes, Once, On Mon04/08/24 at 1335, For 1 doseStart: 01-19-2024 End: 58-02-8499007 mL, INTRAVENOUS, at 999 mL/hr, Administer over 0.5 Hours, ONCE, 1 dose, On Mon01/19/24 at 0930Start: 01-17-2024 End: 65-83-0436466 mL, INTRAVENOUS, at 999 mL/hr, Administer over 0.5 Hours, ONCE, 1 dose, On Mon01/17/24 at 0830Start: 38-66-0464jylv 1 dose intravenously twice daily5-40 mL, IntraVENous, [...] Midline or Central Line = 20 mL/lumenStart: 99-91-5997noihie chloride flush 0.9 % injection 10 mLStart: 10-19-2021 End: 57-56-6792NwrguCTEzrw, at 125 mL/hr, CONTINUOUS, Starting on Mon10/19/21 at 1245Start: 99-53-3431XixniJIOwey, at 5-250 mL/hr, PRN, if patient receiving [...] or less into rate field of order.Start: 66-07-7043vtap 5-40 mL intravenously once as needed5-40 mL, [...] Reductase Inhibitor Antibacterial, Sulfonamide AntimicrobialStart: 04-07-2024 End: 25-17-6547htro 1 tablet by mouth once in the morningsulfamethoxazole- trimethoprim (BACTRIM DS) 800-160 mg per tablet Take 1 tablet by mouth in the morning and 1 tablet before bedtime. 04/07/2024 04/10/2024 Discontinued (Stop Taking at Discharge)Start: 11-15-2023 End: 48-61-0997qbzv 1 tablet by mouth once in the morning, then take 1 tablet by mouth once at bedtimesulfamethoxazole-trimethoprim (Bactrim DS) 800-160 MG per tablet Indications: Acute bronchitis due to other specified organisms Take 1 tablet by mouth in the morning and 1 tablet before bedtime. Do all this for 14 days. 28 tablet 11/15/2023 11/29/2023 ActiveStart: 10-10-2023 End: 50-72-5626avsh 1 tablet by mouth once in the [...] (3 sources)Serotonin-1b and Serotonin-1d Receptor Agonist End: 40-36-8273FNOSlzarott (IMITREX) 100 mg tablet Take 100 mg by mouth. 0 12/03/2021 Discontinued (Lack of Efficacy)Comment on above:Take 100 mg by mouth. traZODone hydrochloride 100 mg oral tablet (20 sources)Serotonin Reuptake InhibitorStart: 04-09-2024 End: 09-79-5672vigq 300 mg by mouth once cbuya707 mg, oral, Nightly, First dose on Mon04/09/24 at 0100, Look-alike/sound-alike medication - verify indication for use.Start: 00-81-3660sgzt 1 tablet by mouth once dailytraZODone (DESYREL) 300 MG tablet Take 1 tablet (300 mg total) by mouth nightly. 03/14/2024 Active Start: 05-10-2023 End: 08-54-8767itoa 1 tablet by mouth at bedtimetraZODone (Desyrel) 300 MG tablet Take 300 mg by mouth at bedtime 05/10/2023 02/28/2024 DiscontinuedStart: 06-13-2022 End: 51-49-3604rqjPOSwrf (DESYREL) 100 mg tablet 06/13/2022 05/03/2024 Discontinued End: 15-23-3038gjyp 2 tablets by mouth once dailytraZODone (DESYREL) 100 mg tablet Take 2 tablets (200 mg total) by mouth nightly. 03/25/2024 Discontinued (Therapy completed) End: 28-85-6836yzgMHPpsb (Desyrel) 50 MG tablet Take by mouth at bedtime. 01/09/2024 Discontinuedvancomycin (VANCOCIN) IVPB 1250 mg/250 mL in 0.9% sodium chloride (premix) (1 source)Start: 04-09-2024 End: 60-33-1305twyb 1250 mg intravenously every eight hours1,250 mg, [...] (YELLOW), Indication: Uncomplicated skin and soft tissue opinwfvej92 hr venlafaxine 75 mg extended release oral [...] mg oral tablet (20 sources)Start: 04-20-2022 End: 47-92-3990shihosaovq (VIIBRYD) 20 mg tablet 2 tablets (40 mg total). 04/20/2022 03/25/2024 Discontinued (Therapy completed)Start: 04-20-2022 End: 80-36-4473dodwtfijgh (VIIBRYD) 20 mg tabletvitamin b12 1 mg oral tablet (8 sources)Vitamin B12 End: 13-56-4662crox 1 tablet by mouth in the morningcyanocobalamin 1000 MCG tablet Take 1 tablet (1,000 mcg total) by mouth in the morning. 03/25/2024 D iscontinued (Therapy completed) Problems Active Problems Problem ClassificationProblemDateDocumented DateEpisodic/ChronicAllergic reactions (3 sources)Environmental allergy; Translations: [Other allergy status, other than to drugs and biological substances]Onset: 204471-01-6976Tqwrtaix Anxiety disorders (20 sources)Anxiety disorder, unspecified; Translations: [Generalized anxiety disorder]Onset: 940634-54-3862TcqycuyQylkqr (20 sources)Unspecified asthma, uncomplicated; Translations: [Mild persistent asthma]Onset: 12-29-2021 Resolved: 171206-31-1596ObgzhjfPkwrjhqzehdnf of surgical procedures or medical care (2 sources)Menopausal flushing; Translations: [Symptomatic postprocedural ovarian failure]77-64-7655KgwsejpH Codes: Fall (1 source)Unspecified fall, initial encounter; Translations: [UNSPECIFIED FALL INITIAL ENCOUNTER]Onset: 15-30-3152YmlajkubFismfyaomtyxo (1 source)Endometriosis, unspecified; Translations: [ENDOMETRIOSIS UNSPECIFIED] Onset: 34-43-1990LrzxbshKmichibdel disorders (6 sources)Gastro-esophageal reflux disease without esophagitis; Translations: [Gastroesophageal reflux disease]Onset: 505662-02-9520XvqrhuiXzqdatnfjccwa symptoms and ill-defined conditions (1 source)Stress incontinence (female) (male); Translations: [STRESS INCONTINENCE FEMALE MALE]Onset: 12-15-9881TorvawlVqgstjxjbluyp symptoms and ill- defined conditions (1 source)Painful micturition, unspecified; Translations: [PAINFUL MICTURITION UNSPECIFIED]Onset: 07-38-0595OehkrnfdLidbebkj; including migraine (20 sources)Migraine; Translations: [Migraine, unspecified, not intractable, without status migrainosus]Onset: 81-02-0431DfnobpjOfrgvryd; including migraine (1 source)Headache; Translations: [Chronic intractable headache, unspecified headache type]EpisodicHeadache; including migraine (4 sources)Headache; including migraine; Translations: [HEADACHE UNSPECIFIED] Onset: 59-08-4001Fmbbp valve disorders (1 source)Nonrheumatic mitral (valve) prolapse; Translations: [NONRHEUMATIC MITRAL VALVE PROLAPSE]Onset: 86-37-7695CqvapfnDsldofqfhvtp; infection of eye (except that caused by tuberculosis or sexually transmitteddisease) (12 sources)Infection of bilateral eyes; 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, bilateral]Onset: 896710-95-2573SwvqyljLmqeusxyhpbn diseases of female pelvic organs (4 sources)Female pelvic peritoneal adhesions; Translations: [Female pelvic peritoneal adhesions (postinfective)]53-23-1815AfsgwhlsPuhibqtfgf disorders (3 sources)Menopausal symptom; Translations: [Menopausal and female climacteric states]53-93-7906YbwanjwWwgrebmcw disorders (1 source)Dysmenorrhea, unspecified; Translations: [DYSMENORRHEA UNSPECIFIED] Onset: 33-71-6355TywvnbdWwugvqnucvoxn mental health disorders (20 sources)Dissociative convulsions; Translations: [Conversion disorder with seizures or convulsions]Onset: 89-86-3927UelogkwIcae disorders (20 sources)Bipolar disorder, unspecified; Translations: [Major depressive disorder, single episode, unspecified]Onset: 477209-24-0483IxqkcxiVuvfykp (5 sources)Mycosis; Translations: [Candidiasis, unspecified]13-95-7312Dxhdekup Other aftercare (1 source)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; Translations: [OTH RESIDENTIAL SALES CONSULTANT CURRENT DRUG THERAPY]Onset: 32-00-1733LpjqwtkxMyron aftercare (2 sources)Wound finding; Translations: [Encounter for other specified aftercare]23-05-5033RsncwnckVpsce connective tissue disease (2 sources)Spasm; Translations: [Other muscle spasm]20-11-7240DmisqgvbJwbib endocrine disorders (1 source)Polycystic ovarian syndrome; Translations: [POLYCYSTIC OVARIAN SYNDROME]Onset: 36-84-8314IbnoyplZfekv endocrine disorders (20 sources)Polycystic ovary; Translations: [Polycystic ovarian syndrome]Onset: 863596-03-9697ZkoaquuJqorp eye disorders (1 source)Bilateral epiphora of eyes; Translations: [Unspecified epiphora, bilateral]72-89-0283ZmxjckafTntws female genital disorders (1 source)Unspecified dyspareunia; Translations: [UNSPECIFIED DYSPAREUNIA]Onset: 82-68-3553XhkrobvPzrou female genital disorders (1 source)Abnormal uterine and vaginal bleeding, unspecified; Translations: [ABNORMAL UTERINE VAGINAL BLEED UNS]Onset: 37-40-1371SvlkopfVajra female genital disorders (2 sources)Pain in female genitalia on intercourse; Translations: [Unspecified dyspareunia]95-26-6335YshztdkSrxsp gastrointestinal disorders (1 source)Other constipation; Translations: [OTHER CONSTIPATION]Onset: 21-87-8121NmalcoplBpmml injuries and conditions due to external causes (4 sources)Unspecified injury of head, initial encounter; Translations: [UNSPECIFIED INJURY HEAD INITIAL ENC]Onset: 56-64-4394QubdgbmoThdql injuries and conditions due to external causes (1 source)Allergic reaction; Translations: [Allergy, unspecified, sequela] 52-53-0103WrbgtjtgBjuqh liver diseases (1 source)Fatty (change of) liver, not elsewhere classified; Translations: [FATTY CHANGE LIVER NEC]Onset: 16-86-9507MavnqmvCpwcw lower respiratory disease (1 source)Nodule of lung; Translations: [Solitary pulmonary nodule]03-20-2024 EpisodicOther nervous system disorders (1 source)Tremor; Translations: [Tremor, unspecified]EpisodicOther nervous system disorders (3 sources)Postoperative pain ; Translations: [Other acute postprocedural pain] 76-17-2738WxqpxvtdIqlol nutritional; endocrine; and metabolic disorders (1 source)Morbid (severe) obesity due to excess calories; Translations: [MORBID SEVERE OBES D/T EXCESS DAJUAN]Onset: 54-68-4218XvruqdbKyxdc nutritional; endocrine; and metabolic disorders (1 source)Body mass index (BMI) 45.0-49.9, adult; Translations: [BODY MASS INDEX BMI 45.0-49.9 ADULT]Onset: 22-51-2001ScvcqqbEkaub nutritional; endocrine; and metabolic disorders (8 sources)Morbid obesity; Translations: [Morbid (severe) obesity due to excess calories]Onset: 901566-88-4091GmasmebWtxzb nutritional; endocrine; and metabolic disorders (20 sources)Severe obesity; Translations: [Class 3 severe obesity due to excess calories without serious comorbidity with body mass index (BMI) of 50.0 to 59.9 in adult]Onset: 174841-60-1544PsnoxeoTvbbl nutritional; endocrine; and metabolic disorders (2 sources)Weight decreased; Translations: [Abnormal weight loss]06-06-2024 EpisodicOther skin disorders (2 sources)Excessive sweating; Translations: [Generalized hyperhidrosis] 24-21-4760CdscxrtwSnvyo upper respiratory disease (3 sources)Seasonal allergic rhinitis; Translations: [Other seasonal allergic rhinitis]58-16-7431LdaxdqgHeaoj upper respiratory infections (1 source)Acute pansinusitis; Translations: [Acute pansinusitis, unspecified] 27-48-5995FrhsvstcNlvgyg media and related conditions (1 source)Otitis media of left ear; Translations: [Otitis media, unspecified, left ear]18-37-6136JlmtmaebCweqfyy cyst (11 sources)Complex ovarian cyst; Translations: [Other ovarian cyst, unspecified side]46-60-5305PavyothsVfpmztxl codes; unclassified (4 sources)Obstructive sleep apnea syndrome; Translations: [Obstructive sleep apnea (adult) (pediatric)]11-32-2198SfvujlgXkwctqho codes; unclassified (1 source)Acquired absence of other specified parts of digestive tract; Translations: [ACQ ABSENCE OTH PART DIGESTV TRACT]Onset: 94-25-9070Isvtaxqn Residual codes; unclassified (1 source)Preoperative bsfxu28-84-2037LsximzsmPuicfrwf codes; unclassified (2 sources)Family history of hereditary disease; Translations: [Family history of other specified conditions]61-23-6298DtadjmpmPejotfji codes; unclassified (2 sources)Reduced libido; Translations: [Decreased libido]41-41-3878Pinylhvy Residual codes; unclassified (1 source)Family history of other specified conditions; Translations: [Family history of other specified conditions]Onset: 89-15-8900BskexvqsOflrbrvucebw (3 sources)LOW BACK PAIN, UNSPECIFIED; Translations: [LOW BACK PAIN, UNSPECIFIED]Onset: 72-31-6568Zbpgfywcdboz (1 source)CONTACT W/AND (SUSP) EXPOS COVID-19; Translations: [CONTACT W/AND (SUSP) EXPOS COVID-19]Onset: 78-62-0673Towxd infection (1 source)Disease caused by 2019-nCoV; Translations: [COVID-19]01-24-2024 Episodic Past or Other Problems Problem ClassificationProblemDateDocumented DateEpisodic/ChronicAbdominal pain (20 sources)Unspecified abdominal pain; Translations: [Pelvic and perineal pain] Onset: 08-17-2021 Resolved: 73-82-9971KfekamibUdkhm bronchitis (20 sources)Acute infective bronchitis; Translations: [Acute bronchitis due to other specified organisms]Onset: 10-10-2023 Resolved: 041494-60-1431SseadpyvHyfy; stupor; and brain damage (20 sources)Somnolence; Translations: [Loss of consciousness]Onset: 08-06-2021 Resolved: 985576-36-6501GatqnwddWvhsjqfenpjay of surgical procedures or medical care (20 sources)Postoperative complication; Translations: [Other postprocedural complications and disorders of genitourinary system]Onset: EpisodicContraceptive and procreative management (1 source)Tubal ligation status; Translations: [TUBAL LIGATION STATUS]Onset: 89-26-6013IwkjhpucTlivxrgue of teeth and jaw (20 sources)Toothache; Translations: [Other specified disorders of teeth and supporting structures]Onset: 700644-18-4981XwajagpaFslmhqic; convulsions (20 sources)Seizure disorder; Translations: [Epilepsy, unspecified, not intractable, without status epilepticus]Onset: 02-18-2020 Resolved: 21-10-4845FqkcmriXiefnouh; convulsions (20 sources)Neurological finding; Translations: [Unspecified convulsions]Onset: 10-19-2021 Resolved: 62-25-8805ZrsxgqycSjnffcw and fatigue (20 sources)Fatigue; Translations: [Other fatigue]Onset: EpisodicMood disorders (20 sources)Mood disorders; Translations: [DEPRESSION UNSPECIFIED]Onset: 03-03-2022 Resolved: Nausea and vomiting (20 sources)Nausea; Translations: [Nausea with vomiting, unspecified]Onset: 67-27-2033ZthmyaufYtvht aftercare (20 sources)Long-term current use of drug therapy; Translations: [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]Onset: 694562-63-9216IipczrekCfmdi female genital disorders (1 source)Pain in female pelvis; Translations: [Pelvic pain in female]Onset: 664354-97-9283AcnbuctyYzldv gastrointestinal disorders (1 source)Diarrhea, unspecified; Translations: [DIARRHEA UNSPECIFIED]Onset: 98-03-3560GxwaecdoLjati liver diseases (1 source)Hepatomegaly, not elsewhere classified; Translations: [HEPATOMEGALY NEC]Onset: 48-01-8340LmnmdabiFgani lower respiratory disease (20 sources)Dyspnea on exertion; Translations: [Shortness of breath]Onset: 250216-91-0229FwbmliasRlrxo lower respiratory disease (20 sources)Cough; Translations: [Acute cough]Onset: 01-27-2022 Resolved: 051140-23-7151NhjkksllSksoh nervous system disorders (5 sources)Other acute postprocedural pain; Translations: [OTHER ACUTE POSTPROCEDURAL PAIN]Onset: 81-79-8150BjhicjxlFrfaw screening for suspected conditions (not mental disorders or infectious disease) (20 sources)Suspected disorder; Translations: [Encounter for suspected anomaly ruled out]Onset: 369013-79-4744KvqtfgczLefkc skin disorders (13 sources)Ingrowing great toenail; Translations: [Ingrowing nail]Onset: 086866-60-3029QvtoerroVsyihmoy codes; unclassified (1 source)Acquired absence of both cervix and uterus; Translations: [ACQUIRED ABSENCE BOTH CERVIX AND UTERUS]Onset: 99-08-3589AchnkflaLkobpwbh codes; unclassified (1 source)Other specified postprocedural states; Translations: [OTH SPECIFIED POSTPROCEDURAL STATES]Onset: 79-27-9572VifcojmxTxiogoif codes; unclassified (20 sources)Persistent insomnia; Translations: [Insomnia, unspecified]Onset: 589798-11-7800SmomqtdqGipekvwk codes; unclassified (20 sources)Edema, generalized; Translations: [Generalized edema]Onset: 157497-20-1680UelmecxdLzukkbwa codes; unclassified (20 sources)History of bilateral salpingo-oophorectomy; 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, bilateral]Onset: 827075-64-8419IwmqlcgrNprm and subcutaneous tissue infections (20 sources)Cellulitis of abdominal wall ; Translations: [Cellulitis of abdominal wall]Onset: 766068-96-1842TdizxtoaQjahdqkrkyp; intervertebral disc disorders; other back problems (20 sources)Cervicalgia; Translations: [Neck pain]Onset: 212711-87-5994 EpisodicUnclassified (1 source)LOW BACK PAIN, UNSPECIFIED; Translations: [LOW BACK PAIN, UNSPECIFIED] Onset: 21-61-4551Tvdlomgkapyz (1 source)Patient encounter -79-7379Yxlfkvclhohq (1 source)Onset: 283230-73-8925Jiexflz tract infections (1 source)Urinary tract infection, site not specified; Translations: [UTI SITE NOT SPECIFIED]Onset: 96-46-1544Ozzzmint Results Test NameValueInterpretationReference RangeFacilityCNOVon 73-82-2905RHZLVopheu Visit (NHMNS2) APRIL NICHOLSON ([id number]) 1995 F Date Time Provider Department 10/24/25 [...] Lymph 1.00 - 4.00 k/uL 0.84 Abs Mckean <0.87 k/uL 0.06 Abs Eosin <0.46 k/uL [...] ZOLMitriptan (ZOMIG) 5 mg nasal sprayUse 1 [place]in[place] in the nose as needed at onset of migraine headache. If symptoms persist or return, may repeat dose in other nostril after 2 hours. Maximum of 2 sprays per 24 hoursDisp: 12 eachRfl: 5 albuterol sulfate 90 mcg/actuation breath activated powder inhalerInhale 2 Puffs as instructed every 6 hours as needed for (more content not included)... [facility] 71-31-9432WGXCNxurtl Visit (NHMNS2) APRIL NICHOLSON ([id number]) 1995 F Date Time Provider Department 12/12/24 9:00 AM BASIL CORNELIUS [facility] During your visit today, we recorded the following information about you: Pulse Blood pressure Weight 102/minute 127/79 128 kg Basil Cornelius DO 12/12/2024 9:58 AM Signed [facility] [place] [address] [place] [address] Headache Center - Follow up Visit Accompanied [...] this. Current treatment: Preventative: Vyepti 300 mg o6mvsfvl Abortive: Zavzpret 10 mg IN prn Zomig IN prn Phenergan Last office visit 09/24/2024: Headache 1 Lo (more content not included)...NormalOhiohealth Van Wert HospitalCNPNon 82-92-1639LFEUEialkvnsx (MNOPRX) APRIL NICHOLSON ([id number]) 1995 F Date Time Provider Department 08/05/24 RHIANNON BOBO MNOPRX During your visit today, we recorded the following information about you: Rhiannon Bobo 08/06/2024 9:58 AM Signed Ambulatory Pharmacy Prior Authorization Note Provider Intervention Required?: No - Pharmacy completed on your behalf. Was the PA documented within the ePA workqueue?: No Rx Plan: Medicaid MCO ([facility]) Drug: Zavzpret 10MG/ACT solution Cover My Meds Chong: [id number] Determination: Approved Prior Authorization/Case #: [id number] Prior Authorization Expiration: 01/31/2025 Time to PA [...] Prescriptions will now be processed through [facility] for determination of next steps. For questions relating to this submission, please contact [facility] at [phone] Allergies As of Date: 08/05/2024 Noted Allergy [...] Hives PROCHLORPERAZINE 12/29/2023 5 - Intolerance VYEPTI ([facility]) 05/02/2024 2 - Rash 9 - Itching Comments: Patient described extreme itching located on her chest and arms (bilaterally). Date Reviewed: 08/05/2024 Reviewed by: Curtis Lepe PA-C - Fully Assessed Reason for Visit: Insurance Authorization [[id number]] Cmt: Zavzpret 10MG/ACT solution Zavzpret 10MG/ACT solution [...] (ZOMIG) 5 mg nasal spray Use 1 [place]in[place] in the nose as needed at onset [...] w*09/19/2023 Encounter Status:Closed by RHIANNON BOBO on 08/06/24[facility] [id number] Visit (NHMNS2) APRLI NICHOLSON ([id number]) 1995 F Date Time Provider Department 08/02/24 [...] Lymph 1.00 - 4.00 k/uL 0.84 Abs Mckean <0.87 k/uL 0.06 Abs Eosin <0.46 k/uL [...] ZOLMitriptan (ZOMIG) 5 mg nasal sprayUse 1 [place] in the nose as needed at onset [...] Behaviors: no pain be (more content not included)...NormalOhiohealth Van Wert HospitalCNPNon 31-24-5833BQXGFjoxboovk (NIQ) APRIL NICHOLSON ([id number]) 1995 F Date Time Provider Department 07/05/24 [...] (ZOMIG) 5 mg nasal spray Use 1 [place] in the nose as needed at onset [...] w*09/19/2023 Encounter Status:Closed by MENDOZA DOOLEY on 07/05/24NoAdena Pike Medical CenterUrinalysis macro (dipstick) panel (U)on 31-01-9848Pkrhywasg, UANegative Negative - 4(70) +++ mg/dLNOMS HealthcareBlood, [...] - 12 mg/dLNOMS HealthcareNOMS HealthcareNCH Lab Reporton 77-81-4616Ffkjlf NormalNationProMedica Defiance Regional HospitalComment on above:Performed By: #### DNASTOR #### Performed at [facility], [address] [place] [address] [id number] 05-07-2024 CNPNTelephone (MNOPRX) APRIL NICHOLSON ([id number]) 1995 F Date Time Provider Department 05/07/24 [...] the PA tio. Thanks! Angely Cotton RN [facility] P: , F: Angely Cotton RN 05/08/2024 3:21 PM Signed [facility] received prescription(s) for Ubrelvy 100MG tablets . Benefits investigation was conducted, indicating that a prior authorization is required. All pertinent clinical information was submitted to insurance. Epic- Referral # [id number] Angely Cotton RN [facility] P: , F: Angely Cotton RN 05/13/2024 9:21 AM Signed Ambulatory Pharmacy Prior Authorization Note Provider Intervention Required?: No - Pharmacy completed on your behalf. Was the PA documented within the ePA workqueue?: No Rx Plan: Medicaid MCO ([facility]) Drug: Ubrelvy 100MG tablets Cover My Meds Chong: [id number] Determination: Approved Prior Authorization/Case #: [id number] Prior Authorization Expiration: 05/07/24 Time to PA [...] Prescriptions will now be processed through [facility] for determination of next steps. For questions relating to this submission, please contact [facility] at [phone] Allergies As of Date: 05/07/2024 Noted Allergy [...] Intolerance VORTIOXETINE 08/06/2021 4 - Hives VYEPTI ([facility]AB[facility]) 05/02/2024 2 - Rash [...] (ZOMIG) 5 mg nasal spray Use 1 [place] in the nose as needed at onset [...] Encounter Status:Closed by MU (more content not included)...NormalPrem[facility] ClevelandIGP,APTIMA HPV,AGE GDLNon 88-08-9131KFN GDLN ACOG TESTINGNote. NOMS HealthcareComment on above:TESTS RESULT FLAG UNITS REF RANGE LAB Clinician Provided Cytology Information Source.............Vagina No. of containers..01 ThinPrep Vial Age Algo ACOG Becca... -20 03 FLAG LEGEND: L-Low Normal,H-High Normal,LL-Alert Low,HH-Alert High <-Panic Low,>-Panic High,A-Abnormal,AA-Critical Abnormal Performed at: 01 =G [facility] [address] [place] [address] Pearl Franco MD, IGP, RFX APTIMA HPV ASCUNote.NOMS HealthcareComment on above:TESTS RESULT FLAG UNITS REF RANGE LAB DIAGNOSIS: 02 NEGATIVE FOR INTRAEPITHELIAL LESION OR MALIGNANCY. Specimen adequacy: 02 Satisfactory for evaluation. No endocervical component is identified. Performed by: Daksha Nichole, Claims Sorter . 02 Note: Note 02 The Pap [...] High,A-Abnormal,AA-Critical Abnormal Performed at: 02 [address] [facility] [address] [place] [address] Pearl Franco MD, Performed at: =G - [facility] [address] [id number] Enhanced Environmental Operator: Pearl Franco MD, Phone: [phone] Performed at: - [facility] [id number] Enhanced Environmental Operator: Pearl Franco MD, Phone: [phone] SPATULA-ALONE VAGINA CLINISYNCNOMS HealthcareCBC auto differentialon 86-13-9231Fxch form neutrophils/100 WBC (Bld)3 %[facility] MemorialEosinophils (Bld) [#/Vol]0.3 10*3/uLKettering Health Greene MemorialEosinophils/100 WBC (Bld)3 %[facility] MemorialErythrocyte distribution width (RBC) [Ratio]13.7 %11.5 - 15.0 %[facility] MemorialHematocrit (Bld) [Volume fraction]32.8 %Low35 - 47 %[facility] MemorialHemoglobin (Bld) [Mass/Vol]11.1 g/dLLow11.7 - 15.5 g/dLK[facility]tering Health Greene MemorialInterpretation and review of laboratory resultsAbnormalK[facility]tering Health Greene MemorialLymphocytes (Bld) [#/Vol]1.2 10*3/[facility] Lymphocytes/100 WBC (Bld)12 %[facility] MemorialMCH (RBC) [Entitic mass]29 pg27 - 34 pgPSelect Medical Specialty Hospital - CantonMCHC (RBC) [Mass/Vol]33.8 g/dL32 - 36 g/dL [facility] MemorialMCV (RBC) [Entitic vol]86 fL80 - 100 [facility] HospitalMonocytes (Bld) [#/Vol]0.6 10*3/[facility] PointeMonocytes/100 WBC (Bld)6 %[facility] MemorialNeutrophils (Bld) [#/Vol]7.6 10*3/uLHigh [facility] MemorialPlatelet mean volume (Bld) [Entitic vol]7.7 fL7 - 12 fL [facility] MemorialPlatelets (Bld) [#/Vol]225 10*3/[facility] Polychromasia LM Ql (Bld)1+AbnormalNONE^NONEK[facility] Health Greene MemorialRBC (Bld) [#/Vol]3.82 10*6/uLCritical access hospitalegmented neutrophils/100 WBC (Bld)76 %[facility] MemorialWBC corrected for nucl RBC Auto (Bld) [#/Vol]9.7 [facility] HealthcareComprehensive metabolic panelon 38-15-5792Ipxkdss [Mass/Vol]3.3 g/dL3.2 - 5.3 g/dLProMercy Memorial Hospital SystemALP [Catalytic activity/Vol]80 U/L39 - 130 U/[facility] Health SystemALT No additional P-5'-P [Catalytic activity/Vol]39 U/LHigh0 - 31 U/[facility] Health SystemAnion gap [Moles/Vol]7 mmol/L5 - 15 mmol/LPrPlatte Valley Medical Center Health SystemAST [Catalytic activity/Vol]16 U/L0 - 41 U/[facility] SystemBilirubin [Mass/Vol]0.3 mg/dL0.3 - 1.2 mg/dLK[facility]tering Health Greene MemorialCalcium [Mass/Vol]9.2 mg/dL8.5 - 10.5 mg/dLK[facility]tering Health Greene MemorialChloride [Moles/Vol]107 mmol/L98 - 109 mmol/[facility] SystemCO2 [Moles/Vol]27 mmol/L22 - 32 mmol/[facility] SystemCreatinine [Mass/Vol]0.55 mg/dL0.40 - 1.00 mg/dLKettering Health Greene MemorialComment on above:METHOD TRACEABLE TO [facility] STANDARDeGFR (CKD-EPI)non-race dependent- [facility] CenterComment on above: Reported eGFR is based on the CKD-EPI 2020 equation that does not use a race coefficient. Glucose [Mass/Vol]102 mg/aQYpnn09 - 99 mg/dLK[facility]tering Health Greene Memorial Interpretation and review of laboratory resultsAbnormalK[facility] Potassium [Moles/Vol]4.1 mmol/L3.5 - 5.0 mmol/[facility] Health SystemProtein [Mass/Vol]6.4 g/dL6.0 - 8.0 g/dLCritical access hospitalodium [Moles/Vol]141 mmol/L134 - 146 mmol/[facility] SystemUrea nitrogen [Mass/Vol]9 mg/dL5 - 23 mg/dLHaven Behavioral HealthcareBacteria identified Cx Nom (U)on 39-09-8381[place] comment (Unsp spec) [Interp]URINE RECEIVED WITHOUT PRESERVATIVEProMercy Memorial Hospital SystemService comment (Unsp spec) [Interp]10-50,000 ORGANISMS/mL NORMAL UROGENITAL FLORAProHelen M. Simpson Rehabilitation HospitalBasic Metabolic Panelon 18-32-1326Lgveg gap [Moles/Vol]12 mmol/L5 - 15 mmol/LPrUniversity Hospitals [facility] SystemCalcium [Mass/Vol]8.9 mg/dL8.5 - 10.5 mg/dL [facility] MemorialChloride [Moles/Vol]103 mmol/L98 - 109 mmol/LPrPlatte Valley Medical Center Health SystemCO2 [Moles/Vol]24 mmol/L22 - 32 mmol/LPrUniversity Hospitals [facility] System Creatinine [Mass/Vol]0.61 mg/dL0.40 - 1.00 mg/dLK[facility]tering Health Greene MemorialComment on above:METHOD TRACEABLE TO IDNY STANDARDeGFR (CKD-EPI)non-race dependent- PINF [facility] MemorialComment on above: Reported eGFR is based on the CKD-EPI 2020 equation that does not use a race coefficient. Glucose [Mass/Vol]106 mg/dLPdxi95 - 99 mg/dLK[facility] Health [facility] Memorial Interpretation and review of laboratory resultsAbNYC Health + Hospitals Potassium [Moles/Vol]4 mmol/L3.5 - 5.0 mmol/[facility] Health SystemSodium [Moles/Vol]139 mmol/L134 - 146 mmol/LPrUniversity Hospitals [facility] SystemUrea nitrogen [Mass/Vol]9 mg/dL5 - 23 mg/dLHaven Behavioral HealthcareCBC auto differentialon 84-84-0085Bmse form neutrophils/100 WBC (Bld)1 %[facility] MemorialEosinophils (Bld) [#/Vol]0.8 10*3/uLBon Secours Mary Immaculate Hospital Eosinophils/100 WBC (Bld)6 %[facility] MemorialErythrocyte distribution width (RBC) [Ratio]13.5 %11.5 - 15.0 %[facility] MemorialHematocrit (Bld) [Volume fraction]32.9 %Low35 - 47 %[facility] MemorialHemoglobin (Bld) [Mass/Vol]11.2 g/dLLow11.7 - 15.5 g/dLK[facility]tering Health Greene MemorialInterpretation and review of laboratory resultsAbNYC Health + HospitalsLymphocytes (Bld) [#/Vol]1.5 10*3/[facility] PointeLymphocytes/100 WBC (Bld)11 %[facility] MemorialMCH (RBC) [Entitic mass]28.8 pg27 - 34 [facility] MCHC (RBC) [Mass/Vol]34 g/dL32 - 36 g/dLKettering Health Greene MemorialMCV (RBC) [Entitic vol]85 fL80 - 100 [facility] HospitalMonocytes (Bld) [#/Vol]0.5 10*3/uLKettering Health Greene MemorialMonocytes/100 WBC (Bld)4 %[facility] Neutrophils (Bld) [#/Vol]10.6 10*3/uLBon Secours Mary Immaculate HospitalPlatelet mean volume (Bld) [Entitic vol]7.5 fL7 - 12 [facility] HospitalPlatelets (Bld) [#/Vol]232 10*3/[facility] PointePolychromasia LM Ql (Bld)1+Abnormal NONE^NONEK[facility]tering Health Greene MemorialRBC (Bld) [#/Vol]3.89 10*6/[facility]urer Hospitalegmented neutrophils/100 WBC (Bld)78 %[facility] MemorialWBC corrected for nucl RBC Auto (Bld) [#/Vol]13.4HighLifecare Hospital of PittsburghMRSA DNA SAURABH+probe Ql (Unsp spec)on 22-90-3753OrwQvwqckKettering Health Greene MemorialMrsa Pcr nasal swabon 36-52-5551NIYM DNA SAURABH+probe Ql (Unsp spec) NegativeNegative^NegativeKettering Health Greene MemorialAPTTon 23-58-0273lXGM Coag (PPP) [Time]35 [facility] HospitalBasic Metabolic Panelon 12-56-2983Drini gap [Moles/Vol]10 mmol/L5 - 15 mmol/[facility] SystemCalcium [Mass/Vol]9.4 mg/dL8.5 - 10.5 mg/dLK[facility]tering Health Greene MemorialChloride [Moles/Vol]101 mmol/L98 - 109 mmol/[facility] SystemCO2 [Moles/Vol]26 mmol/L22 - 32 mmol/[facility] - YoungstownCreatinine [Mass/Vol]0.61 mg/dL0.40 - 1.00 mg/dLKettering Health Greene MemorialComment on above:METHOD TRACEABLE TO IDNY STANDARDeGFR (CKD-EPI)non-race dependent- [facility] CenterComment on above: Reported eGFR is based on the CKD-EPI 2020 equation that does not use a race coefficient. Glucose [Mass/Vol]94 mg/dL65 - 99 mg/dLK[facility]tering Health Greene MemorialPotassium [Moles/Vol]4 mmol/L3.5 - 5.0 mmol/[facility] SystemSodium [Moles/Vol]137 mmol/L134 - 146 mmol/[facility] - YoungstownUrea nitrogen [Mass/Vol]10 mg/dL5 - 23 mg/dLK[facility]tering Health Greene MemorialC-reactive proteinon 14-54-6378IID [Mass/Vol] 15.4 mg/dLHigh0.000 - 0.744 mg/dLK[facility]tering Health Greene MemorialCBC auto differentialon 79-30-5202Nlkuzaspq (Bld) [#/Vol]0.1 10*3/uLKettering Health Greene MemorialBasophils/100 WBC (Bld)0.5 %[facility] MemorialEosinophils (Bld) [#/Vol]0.2 10*3/uL [facility] MemorialEosinophils/100 WBC (Bld)1.1 %[facility] Erythrocyte distribution width (RBC) [Ratio]13.4 %11.5 - 15.0 %[facility] MemorialHematocrit (Bld) [Volume fraction]37.6 %35 - 47 %[facility] Hemoglobin (Bld) [Mass/Vol]12.8 g/dL11.7 - 15.5 g/dLK[facility]tering Health [facility] Memorial Interpretation and review of laboratory resultsAbnormalK[facility] Lymphocytes (Bld) [#/Vol]1.3 10*3/uLK[facility]tering Health Greene MemorialLymphocytes/100 WBC (Bld)6.7 %[facility] Orthopedic CenterH (RBC) [Entitic mass]28.7 pg27 - 34 pg [facility] MemorialMCHC (RBC) [Mass/Vol]34.1 g/dL32 - 36 g/dLK[facility]tering Health Greene MemorialMCV (RBC) [Entitic vol]84 fL80 - 100 [facility] Monocytes (Bld) [#/Vol]0.7 10*3/[facility] PointeMonocytes/100 WBC (Bld) 3.5 %[facility] MemorialNeutrophils (Bld) [#/Vol]17.2 10*3/uLHighKettering Health Greene MemorialNeutrophils/100 WBC (Bld)88.2 %[facility] MemorialPlatelet mean volume (Bld) [Entitic vol]8.5 fL7 - 12 [facility] SystemPlatelets (Bld) [#/Vol]290 10*3/[facility] PointeRBC (Bld) [#/Vol]4.46 10*6/[facility] PointeWBC corrected for nucl RBC Auto (Bld) [#/Vol]19.6HighHaven Behavioral HealthcareCRP [Mass/Vol]on 72-07-9908Duetbhhkkyateg and review of laboratory resultsAbnormalHaven Behavioral HealthcareCT Abdomen and Pelvis W contrast Pat 58-86-5650ZX ABDOMEN AND PELVIS W CONT HISTORY: Abdominal [...] 4:09 PM [facility] SystemRadiology Study observation (narrative)[facility] BranchCT Abdomen and Pelvis W contrast IVOrdered By: Kyle Solorio on 04-08-2024 [facility] Work Phone: ecg 12 leadon 94-74-9866HPARBHBUYGFXXYQpcTweznn Health SystemLaboratory - Microbiology and Antimicrobial susceptibilityon 04-08-2024 FLUAV+FLUBV RNA SAURABH+probe Ql (Unsp spec)NegativeNegative^NegativeSumma Health Wadsworth - Rittman Medical Center SystemLactate (P anuradha) [Moles/Vol]on 12-00-8543EmyUbbfexKettering Health Greene Memorial Lactate w/ Reflexon 08-21-7445Eimeywy (P anuradha) [Moles/Vol]0.8 mmol/L0.4 - 2.0 mmol/[facility] SystemComment on above: Result did not trigger repeat Lactate, re-order if needed. Liver panelon 22-36-1230Tdcdljm [Mass/Vol]3.9 g/dL3.2 - 5.3 g/dLKettering Health Greene MemorialALP [Catalytic activity/Vol]88 U/L39 - 130 U/[facility] SystemALT No additional P-5'-P [Catalytic activity/Vol]59 U/LHigh0 - 31 U/[facility] SystemAST [Catalytic activity/Vol]26 U/L0 - 41 U/[facility] System Bilirubin [Mass/Vol]0.7 mg/dL0.3 - 1.2 mg/dLK[facility]tering Health [facility] Bilirubin.direct [Mass/Vol]0 mg/dL0.0 - 0.4 mg/dLK[facility] Interpretation and review of laboratory resultsAbnormalK[facility] Protein [Mass/Vol]7.3 g/dL6.0 - 8.0 g/dLK[facility]tering Health Greene MemorialMagnesiumon 89-85-1268Wdpdenlfm [Mass/Vol]1.8 mg/dL1.8 - 2.6 mg/dLK[facility]tering Health Greene MemorialNo Panel Informationon 04-88-8654MwtZhhaxpHaven Behavioral HealthcarePOCT Nursing Urine Macroscopic UAon 14-77-5517Oweaeqqmr Ql (U)Negative Negative^NegativeProMedica Health SystemGlucose [Mass/Vol]Negative Negative^Negative mg/dLK[facility]tering Health Greene MemorialHemoglobin Ql (U)TraceAbnormal Negative^NegativeK[facility]tering Health Greene MemorialInterpretation and review of laboratory resultsAbnoFrye Regional Medical Center Alexander CampusKetones (U) [Mass/Vol]Negative Negative^Negative mg/dLK[facility]tering Health Greene MemorialLeukocyte esterase Test strip Ql (U)NegativeNegative^NegativeK[facility]tering Health Greene MemorialNitrite Ql (U)Negative Negative^NegativeK[facility]tering Health Greene MemorialpH (U)7.5 [pH]5.0 - 8.5PSelect Medical Specialty Hospital - CantonProtein Ql (U)TraceAbnormalNegative^Negative mg/dLK[facility] Specific gravity (U) [Rel density]1.021.003 - 1.035[facility] Urobilinogen Qn (U)0.2NINFHaven Behavioral HealthcareProtime & INRon 38-96-9352RBR Coag (PPP) [Relative time]1.3 {INR}HighKettering Health Greene MemorialInterpretation and review of laboratory resultsAbnoFrye Regional Medical Center Alexander CampusPT Coag (PPP) [Time]14.7 sHigDavis Regional Medical CenterARS/FLU A+B/RSV by NAAT/Molecular (M4RT Collection Tube)on 14-43-0190NTF RNA SAURABH+probe Nom (Unsp spec)NegativeNegative^NegativeCritical access hospitalARS-CoV-2 (COVID-19) RNA SAURABH+probe Ql (Resp)Not detectedNot Detected^Not DetectedK[facility]tering Health [facility] Memorial Comment on above:NOTE The Xpert Xpress SARS-CoV-2/Flu/RSV [...] operators who are performing tests using either [employer] or [employer] systems and is limited to laboratories that [...] specimen repeat. Fact Sheet for Healthcare Providers: https://www.fda.gov/media/595338/download Fact Sheet for Patients: https://www.fda.gov/media/817213/download [facility] MemorialThyroid profile includes TSH FT4on 28-93-6329Qoux T4 [Mass/Vol]0.62 ng/dL0.61 - 1.60 ng/dLKettering Health Greene MemorialTSH Qn0.54 m[IU]/L [facility] HealthcareTroponin I, High Sensitivityon 02-09-1007Vczkviav I.cardiac High sensitivity method [Mass/Vol]2 ng/LNINF - 16 ng/LProMedKettering HealthTroponin I, High Sensitivity 1 Houron 04-08-2024 Troponin I.cardiac High sensitivity method [Mass/Vol]2 ng/LNINF - 16 ng/L [facility] MemorialTroponin I.cardiac High sensitivity method [Mass/Vol]on 83-88-9160IvzRglhbaHaven Behavioral HealthcareXR Chest Single viewon 04-08-2024 XR CHEST 1 VW History: Short of breath. One view study. Comparison: 01/23/2024 Impression: * Lungs are now clear. No focal airspace disease or infiltrate is appreciated. No acute process is seen. Finalized by Renetta Andrea MD on 04/08/2024 2:12 PMSECTRAMethodist Olive Branch Hospitalmarbin, Renetta Gentile MD - 04/08/2024 XR CHEST 1 VW History: Short of breath. One view study. Comparison: 01/23/2024 Impression: * Lungs are now clear. No focal airspace disease or infiltrate is appreciated. No acute process is seen. Finalized by Renetta Andrea MD on 04/08/2024 2:12 PM [facility] MemorialRadiology Study observation (narrative)[facility] SystemXR Chest Single viewOrdered By: Renetta Andrea on [id number] Health [facility] Memorial Work Phone: ecg 12 leadon [phone] Health SystemABO Rh [place] 84-52-8159DMMLXisNpqwndJacobi Medical CenterRh Nom (Bld)Positive [facility] SystemType and screen(includes indirect ady)on 67-75-8729FSKKQujCqqdboJacobi Medical CenterRh Nom (Bld)PositivePrairie Ridge Health SystemRespiratory allergy panelon 03-21-2024. alternata IgE Qn [...] kU/LProMedica Health SystemComment on above:Class 0: NormalCalifornia [place] Pollen IgE Qn (S)kU/LNINF - 0.10 kU/L [...] level of Allergy, indicative of ongoing sensitization [place] IgE Qn (S)0.25 kU/LHighNINF - 0.10 kU/LProMedica Health SystemComment on above:Class 0/1: Low level of Allergy, ongoing sensitization Dog dander IgE Qn (S)52.5 kU/LHighNINF - 0.10 kU/LProMedica Health SystemComment on above:Class 5:Very High level of Allergy,indicative of very high level sensitization house dust mite IgE Qn (S)kU/LNINF - 0.10 kU/LProMedica Health System Comment on above:Class 0: NormalGoosefoot IgE Qn (S)kU/LNINF - 0.10 kU/L [facility] Hospitala Health SystemComment on above:Class 0: NormalIgE Qn602 [IU]/LHigh ProMeast [facility] Health SystemInterpretation and review of laboratory resultsAbnormal [facility] SystemJohnson grass IgE Qn (S)0.96 kU/LHighNINF - 0.10 kU/L [facility] SystemComment on above:Class 2:Moderate level of Allergy, [...] Health SystemComment on above:Class 0: NormalPecan or [place] IgE Qn (S)0.17 kU/LHighNINF - 0.10 kU/LProMedica Health SystemComment on above: Class 0/1: Low level of Allergy, ongoing sensitization Saltwort IgE Qn (S)0.38 kU/LHighNINF - 0.10 kU/LProMedica Health SystemComment on above:Class 1:Low level of Allergy, indicative of ongoing sensitization Sheep [place] IgE Qn (S)kU/LNINF - 0.10 kU/LProMedica Health SystemComment on above:Class 0: NormalSilver Birch IgE Qn (S)kU/LNINF - 0.10 kU/LProMedica Health SystemComment on above:Class 0: NormalTimothy IgE Qn (S)1.92 kU/LHighNINF - 0.10 kU/LProMedica Health SystemComment on above:Class 2:Moderate level of Allergy, indicative of stronger ongoing sensitization [place] IgE Qn (S)kU/LNINF - 0.10 kU/LProMedica [facility] SystemComment on above: Class 0: NormalWhite Elm IgE Qn (S)kU/LNINF - 0.10 kU/LProMedica Health System Comment on above:Class 0: NormalWhite mulberry IgE Qn (S)kU/LNINF - 0.10 kU/L [facility] Hospitala [facility] SystemComment on above:Class 0: NormalWhite [place] IgE Qn (S)kU/L NINF - 0.10 kU/LProMedica [facility] SystemComment on above:Class 0: NormalKettering Health Greene MemorialPulmonary function test Spirometry (Flow Volume Loop)Ordered By: Dinorah Cummins on 44-16-6714AsdFsuhuqKettering Health Greene MemorialCA 125on 53-31-8886Cgpqxx Ag 125 Qn7 [arb'U]/mL0 - 35 U/mLKettering Health Greene MemorialComment on above: The method used for this test is Olga GainSpan DXI chemiluminescent immunoassay. Values obtained by different assay methods cannot be used interchangeably. CBC auto differentialon 19-75-7144Ixqrdhwjn (Bld) [#/Vol]0 10*3/uLKettering Health Greene MemorialBasophils/100 WBC (Bld)0.6 %[facility] MemorialEosinophils (Bld) [#/Vol]0.5 10*3/uLHighKettering Health Greene MemorialEosinophils/100 WBC (Bld)8.4 %[facility] MemorialErythrocyte distribution width (RBC) [Ratio]13.6 %11.5 - 15.0 %[facility] MemorialHematocrit (Bld) [Volume fraction]40.6 %35 - 47 % [facility] MemorialHemoglobin (Bld) [Mass/Vol]13.7 g/dL11.7 - 15.5 g/dL [facility] MemorialInterpretation and review of laboratory resultsAbnormal [facility] MemorialLymphocytes (Bld) [#/Vol]1.3 10*3/uLKettering Health Greene MemorialLymphocytes/100 WBC (Bld)23.5 %[facility] MemorialMCH (RBC) [Entitic mass]29.2 pg27 - 34 [facility] InstituteMCHC (RBC) [Mass/Vol]33.7 g/dL32 - 36 g/dLKettering Health Greene MemorialMCV (RBC) [Entitic vol]87 fL80 - 100 [facility] HospitalMonocytes (Bld) [#/Vol]0.3 10*3/uLKettering Health Greene Memorial Monocytes/100 WBC (Bld)5.3 %[facility] MemorialNeutrophils (Bld) [#/Vol]3.5 10*3/uLKettering Health Greene MemorialNeutrophils/100 WBC (Bld)62.2 %[facility] MemorialPlatelet mean volume (Bld) [Entitic vol]8.9 fL7 - 12 [facility] HospitalPlatelets (Bld) [#/Vol]233 10*3/uLKettering Health Greene MemorialRBC (Bld) [#/Vol] 4.67 10*6/[facility] PointeWBC corrected for nucl RBC Auto (Bld) [#/Vol] 5.7[facility] Health SystemCEAon 03-18-2024 Carcinoembryonic Ag [Mass/Vol]0.9 ng/mL0.0 - 3.0 ng/mLK[facility]tering Health [facility] Memorial Comment on above: 0.0-3.0 ng/mL FOR NON SMOKERS 0.0-5.0 ng/mL FOR SMOKERS The method used for this test is Olga [place]erton DXI chemiluminescent immunoassay. Values obtained by different assay methods cannot be used interchangeably. Cancer Ag 125 Qnon 17-23-0403QsjEqkoioKettering Health Greene MemorialCancer Ag 19-9 Qnon 04-90-0556UkyXhcrnlKettering Health Greene MemorialCancer antigen 19-9on 18-77-2987Tcdmuc Ag 19-9 QnU/mL0.0 - 35.0 U/mLCleveland Clinic ActiveSec Mymichigan Medical Center West BranchComment on above: The method used for this test is Olga Fullerton DXI chemiluminescent immunoassay. Values obtained by different assay methods cannot be used interchangeably. Carcinoembryonic Ag [Mass/Vol]on 12-16-2376LwjFvtgmu Health SystemComprehensive metabolic panelon 71-66-3121Zudxvus [Mass/Vol]4.3 g/dL3.2 - 5.3 g/dLProNorth Alabama Specialty Hospital Health SystemALP [Catalytic activity/Vol]51 U/L39 - 130 U/LProMedica Health SystemALT No additional P-5'-P [Catalytic activity/Vol]21 U/L0 - 31 U/[facility] Health SystemAnion gap [Moles/Vol]10 mmol/L5 - 15 mmol/LProMedica Health System AST [Catalytic activity/Vol]15 U/L0 - 41 U/LProMedtanner medical center east alabama Health SystemBilirubin [Mass/Vol]0.5 mg/dL0.3 - 1.2 mg/dLSumma Health Wadsworth - Rittman Medical Center SystemCalcium [Mass/Vol]9.2 mg/dL8.5 - 10.5 mg/dLSumma Health Wadsworth - Rittman Medical Center SystemChloride [Moles/Vol]104 mmol/L98 - 109 mmol/[facility] Health SystemCO2 [Moles/Vol]27 mmol/L22 - 32 mmol/[facility] SystemCreatinine [Mass/Vol]0.62 mg/dL0.40 - 1.00 mg/dLKettering Health Greene MemorialComment on above:METHOD TRACEABLE TO IDNY STANDARDeGFR (CKD-EPI)non-race dependent- [facility] CenterComment on above: Reported eGFR is based on the CKD-EPI 2020 equation that does not use a race coefficient. Glucose [Mass/Vol]88 mg/dL65 - 99 mg/dLKettering Health Greene MemorialInterpretation and review of laboratory resultsAbnormalSumma Health [facility] Medical Center SystemPotassium [Moles/Vol]3.4 mmol/LLow3.5 - 5.0 mmol/LProMedica Health SystemProtein [Mass/Vol]6.6 g/dL6.0 - 8.0 g/dLSumma Health Wadsworth - Rittman Medical Center SystemSodium [Moles/Vol]141 mmol/L134 - 146 mmol/[facility] Texasica Health SystemUrea nitrogen [Mass/Vol]12 mg/dL5 - 23 mg/dLPrairie Ridge Health SystemCNPNon [id number] Telephone ([facility]) APRIL NICHOLSON ([id number]) 1995 F Date Time Provider Department 02/22/24 SAGAR BARTH [facility] During your visit today, we recorded the following information about you: Jannette Castrejon RN 02/22/2024 12:04 PM Signed Prior Authorization submitted via [employer] on 02/22/2024: Insurance: [place] Medicaid Medication: Zolmitriptan Chong Code: [id number] Awaiting Response Jannette Castrejon RN 03/14/2024 2:23 [...] Date Reviewed: 01/22/2024 Reviewed by: Raiza Shields APRN.LAUNCH OPERATOR - Fully Assessed Reason for Visit: Insurance Authorization [[id number]] Cmt: Zolmitriptan Prescriptions as of 03/14/2024 - ZOLMitriptan (ZOMIG) 5 mg nasal spray Use 1 [place]inole in the nose as needed at onset [...] w*09/19/2023 Encounter Status:Closed by JANNETTE CASTREJON on 02/22/24[facility] PELVIS W/ TRANSVAGINALon [id number] [address] Ultrasound Report Signed Patient: MARGARET NICHOLSON MR#: [id number] : 1995 Acct:[id number] Age/Sex: 28 / F ADM Date: 02/19/24 Loc: US Attending Dr: Zay Blas D.O. Ordering Physician: Zay Blas D.O. Date of Service: 02/19/24 Procedure(s): US pelvis w/ transvaginal Accession Number(s): [id number] cc: Zay Blas D.O.; Lamont Blair M.D. [address] [place] [address] Patient Name: MARGARET NICHOLSON MRN: [id number] date: 1995 Sex: F Assigned Patient Location: US Current Patient Location: [place] Accession/Order Number: [id number] Exam Date: 02/19/2024 07:11 Report Date: 02/19/2024 [...] M.D. Signed By: 02/19/24807 DD/ 4 TD/TT: Rail Bender:TBHRadiology, Radiologist, - 02/19/2024 [address] [place] [id number] Ultrasound Report Signed Patient: MARGARET NICHOLSON MR#: [id number] : 1995 Acct:[id number] Age/Sex: 28 / F ADM Date: 02/19/24 Loc: US Attending Dr: Zay Blas D.O. Ordering Physician: Zay Blas D.O. Date of Service: 02/19/24 Procedure(s): US pelvis w/ transvaginal Accession Number(s): [id number] cc: Zay Blas D.O.; Lamont Blair M.D. [place] [address] Patient Name: MARGARET NICHOLSON MRN: [id number] date: 1995 Sex: F Assigned Patient Location: US Current Patient Location: [place] Accession/Order Number: [id number] Exam Date: 02/19/2024 07:11 Report Date: 02/19/2024 [...] M.D. Signed By: 02/19/24807 DD/ 4 TD/TT: Rail Bender: RALEN HealthcareRadiology Study observation (narrative)NOMKrupa HealthcareUS PELVIS W/ TRANSVAGINALOrdered By: Radiologist Radiology on [id number] Healthcare Work Phone: Pathology Request for Lab Corpon [id number] Request for Lab CorpNormHCA Florida [facility] Hospital Physician GroupComment on above:Order Comment: PATHOLOGY GI SPECIMENResult Comment: See report. Scanned copy available in EMR. PERFORMED BY: [place] [address] PATHOLOGIST BARKEEPER PALOMO JOYCE M.D.Performed By: #### PATH TO [facility] #### [place] [address] USACNPNon [phone] ([facility]) APRIL NICHOLSON ([id number]) 1995 F Date Time Provider Department 01/29/24 SAGAR BARTH [facility] During your visit today, we recorded the following information about you: Kelsey Patel 01/29/2024 10:53 AM Signed Name of Caller: nicky Relationship to patient: pharmacy Last visit in this department: 09/19/2023 Reason for Call: Other : need to verify quantity on zolmitriptan. Callback number: [phone] Amy Shrestha MA 01/29/2024 12:06 PM Signed Per last Rx on 11/10/2023: Disp Refills Start End ZOLMitriptan (ZOMIG) 5 mg nasal spray 10 Each 5 11/10/2023 -- Sig: Use 1 [place] in the nose as needed at onset of migraine headache. If symptoms persist or return, may repeat dose in other nostril after 2 hours. Maximum of 2 sprays per 24 hours I called the pharmacy and hey need to know if Provider would like to dispense #6 or #12 cartridges. They do not come in 10. Please advise. Thank you Sagar aBrth APRN.CNP 01/30/2024 2:59 PM Addendum Dispense 12 pls. I rewrote the rx. Sagar Barth APRN.Sagar Glass APRN.CNP 01/30/2024 2:59 PM Signed The following approved medication requests have been transmitted electronically. Requested Prescriptions Signed Prescriptions Disp Refills ZOLMitriptan (ZOMIG) 5 mg nasal spray 12 Each 5 Sig: Use 1 [place] in the nose as needed at onset [...] Date Reviewed: 01/22/2024 Reviewed by: Raiza Shields APRN.LAUNCH OPERATOR - Fully Assessed Order(s):ZOLMitriptan (ZOMIG) 5 mg nasal sprayUse 1 [place] in the nose as needed at onset of migraine headache. If symptoms persist or return, may repeat dose in other nostril after 2 hours. Maximum of 2 sprays per 24 hoursDisp: 12 EachRfl: 5 Prescriptions as of 02/01/2024 - ZOLMitriptan (ZOMIG) 5 mg nasal spray Use 1 [place] in the nose as needed at onset [...] 5 01/30/2024 Route: NASAL Sig: Use 1 [place] in the nose as needed at onset of migraine headache. If symptoms persist or return, may repeat dose in other nostril after 2 hours. Maximum of 2 sprays per 24 hours Medications Discontinued During This Encounter Prescriptions - ZOLMitriptan (ZOMIG) 5 mg nasal spray (Discontinued) Use 1 [place] in the nose as needed at onset of migraine headache. If symptoms persist or return, may repeat dose in other nostril after 2 hours. Maximum of 2 sprays per 24 hours Encounter Status:Closed by KELSEY PATEL on 01/30/24[facility] [phone] Visit (NHMNS2) NICHOLSONCAROLINA ROGERSRA Fernández ([id number]) 1995 F Date Time Provider Department 01/22/24 2:30 PM RAIZA SHIELDS [facility] During your visit today, we recorded the following information about you: Raiza Shields APRN.[facility] 01/22/2024 1:57 PM Signed [facility] [...] Lymph 1.00 - 4.00 k/uL 0.84 Abs Mckean <0.87 k/uL 0.06 Abs Eosin <0.46 k/uL [...] ZOLMitriptan (ZOMIG) 5 mg nasal sprayUse 1 [place] in the nose as needed at onset [...] hold extra IV fluids (more content not included)...NormalOhiohealth Van Wert HospitalBLOOD GASES BTYon [facility]lands Regional Medical Centerment on above:Performed By: #### BMP #### [facility] [address] [address] [address] Ibis Pedraza TESTPositiveAvita Health System Bucyrus HospitalComuniversity of michigan health on above: Performed By: #### BMP #### [facility] [address] [place] [address] Dr. Ibis An excess Calc (Bld) [Moles/Vol]-1.6000 mmol/LNormal-2.0-2.0The [facility] on above:Performed By: #### BMP #### [facility] [address] [place] [address] Dr. Ibis Elizalde [facility] Medical CenterComuniversity of michigan health on above: Performed By: #### BMP #### [facility] [address] [place] [address] Dr. Ibis JimenezCPAPWilson Memorial Hospital on above:Performed By: #### BMP #### [facility] [address] [place] [address] Dr. Ibis JimenezAudxiYCX4KbtghvDctWilson Memorial Hospital on above:Performed By: #### BMP #### [facility] [address] [place] [address] Dr. Ibis JimenezHCO3 (Bld) [Moles/Vol]23.8 mmol/KNqgueq92.0-26.0The [facility] on above:Performed By: #### BMP #### [facility] [address] [place] [address] Dr. Ibis JimenezLPMNSt. Mary's Medical Center, Ironton Campus on above:Performed By: #### BMP #### [facility] [address] [address] [address] Ibis Sheffield Dunlap Memorial HospitalComment on above: Performed By: #### BMP #### [facility] [address] [address] [address] Ibis Amezquita (Bld) [Partial pressure]75.5 mm[Hg]Critically low 80.0-100.0The [facility] Luther[facility] HospitalComment on above:Performed By: #### BMP #### [facility] [address] [address] [address] Ibis Amezquita saturation in Blood95.8 %Vkeaoc88.0-100.0The [facility] HospitalComment on above:Performed By: #### BMP #### [facility] [address] [place] [address] Dr. Ibis JimenezPCO241.8 aqVmGgbirv89.0-45.0The [facility] HospitalComuniversity of mich[facility] health on above:Performed By: #### BMP #### [facility] [address] [place] [address] Dr. Ibis JimenezAvita Health System Bucyrus HospitalComuniversity of michigan health on above:Performed By: #### BMP #### [facility] [address] [place] [address] Dr. Ibis JimenezpH (Bld)7.363 [pH]Normal7.350-7.450The [facility] HospitalComuniversity of mich[facility] health on above:Performed By: #### BMP #### [facility] [address] [place] [address] Dr. Ibis RennerormalThe [facility] HospitalComuniversity of mich[facility] health on above:Performed By: #### BMP #### [facility] [address] [place] [address] Dr. [address] Jimenez[address] Rita's Medical CenterComuniversity of michigan health on above:Performed By: #### BMP #### [facility] [address] [place] [address] Dr. Ibis Lindsey [facility] HospitalCom[facility] on above: Performed By: #### BMP #### [facility] [address] [place] [address] Dr. Ibis OliveiraThe [facility] Luther[facility] HospitalComment on above:Performed By: #### BMP #### [facility] [address] [place] [address] Dr. Ibis Chow [facility] West HospitalComment on above:Performed By: #### BMP #### [facility] [address] [place] [address] Dr. Ibis JimenezOhioHealth Doctors HospitalComment on above:Performed By: #### BMP #### [facility] [address] [place] [address] Dr. Ibis Alexis AUTO DIFFon 33-70-2057WULK #0.0 103/ulNormal0.0-0.1The [facility]illicothe Hospitalment on above:Performed By: #### ACET, SALYC #### [facility] [address] [place] [address] Dr. Ibis JmienezBasophils/100 WBC (Bld)0.5 %Normal0.2-2.0[facility] Comment on above:Performed By: #### ACET, SALYC #### [facility] [address] [place] [address] Dr. Ibis Acevedo #0.3 103/ulNormal0.0-0.7The [facility] HospitalComuniversity of mich[facility] health on above: Performed By: #### ACET, SALYC #### [facility] [address] [place] [address] Dr. Ibis Rojasosinophils/100 WBC (Bld)4.2 %Normal0.9-7.0[facility] Comment on above:Performed By: #### ACET, SALYC #### [facility] [address] [place] [address] Dr. Ibis Rojasrythrocyte distribution width (RBC) [Ratio]13.2 %Njmpzf13.0-15.0 [facility] HospitalComment on above:Performed By: #### ACET, SALYC #### [facility] [address] [place] [address] Dr. Ibis JimenezHematocrit (Bld) [Volume fraction]36.5 %Sznefj86.0-48.0The [facility] HospitalComment on above:Performed By: #### ACET, SALYC #### [facility] [address] [place] [address] Dr. Ibis JimenezHemoglobin (Bld) [Mass/Vol]11.7 g/dLCritically low12.0-16.0The [facility] HospitalComment on above:Performed By: #### ACET, SALYC #### [facility] [address] [place] [address] Dr. Ibis Soto #0.05 10e3/ulCritically high0.00-0.03The [facility] Comment on above:Performed By: #### ACET, SALYC #### [facility] [address] [place] [address] Dr. Ibis Soto %0.8 %Critically high0.0-0.5The [facility] HospitalComment on above:Performed By: #### ACET, SALYC #### [facility] [address] [place] [address] Dr. Ibis Monsalve #1.7 103/ulNormal1.2-3.8The [facility] HospitalComment on above:Performed By: #### ACET, SALYC #### [facility] [address] [place] [address] Dr. Ibis Brennerhocytes/100 WBC (Bld)26.9 %Mklisb37.5-60.0The [facility] HospitalComment on above:Performed By: #### ACET, SALYC #### [facility] [address] [place] [address] Dr. Ibis NewtonUAL DIFF REQNONormalThe [facility] HospitalComment on above: Performed By: #### ACET, SALYC #### [facility] [address] [place] [address] Dr. Ibis Irby (RBC) [Entitic mass]28.7 thLpdcoq39.7-34.0The [facility] HospitalComment on above:Performed By: #### ACET, SALYC #### [facility] [address] [place] [address] Dr. Ibis Frank (RBC) [Mass/Vol]32.1 g/hTUljcuz23.9-35.2The [facility] HospitalComment on above:Performed By: #### ACET, SALYC #### [facility] [address] [place] [address] Dr. Ibis Frank (RBC) [Entitic vol]89.7 eVBevdsk99.0-99.0The [facility] HospitalComment on above:Performed By: #### ACET, SALYC #### [facility] [address] [place] [address] Dr. Ibis Magallanes #0.6 103/ulNormal0.3-0.8The [facility] HospitalComment on above:Performed By: #### ACET, SALYC #### [facility] [address] [place] [address] Dr. Ibis Barbaocytes/100 WBC (Bld)8.9 %Normal1.7-12.0The [facility] Comment on above:Performed By: #### ACET, SALYC #### [facility] [address] [place] [address] Dr. Ibis Schultz #3.8 103/ulNormal1.4-6.5The [facility] HospitalComment on above:Performed By: #### ACET, SALYC #### [facility] [address] [place] [address] Dr. Ibis Hiutrophils/100 WBC (Bld)58.7 %Ygbajb38.0-75.0The [facility] HospitalComment on above:Performed By: #### ACET, SALYC #### [facility] [address] [place] [address] Dr. Ibis Faye mean volume (Bld) [Entitic vol]9.3 fLCritically low 9.5-13.5The [facility] HospitalComment on above:Performed By: #### ACET, SALYC #### [facility] [address] [place] [address] Dr. Ibis JimenezPLT188 103/cjGjwiaj641-936Iiw [facility] on above: Performed By: #### ACET, SALYC #### [facility] [address] [address] [address] Ibis ConleyC4.07 106/ulCritically low4.20-5.40The [facility] on above:Performed By: #### ACET, SALYC #### [facility] [address] [place] [address] Dr. Ibis JimenezWBC6.4 103/ulNormal4.0-11.0[facility] on above: Performed By: #### ACET, SALYC #### [facility] [address] [place] [address] Dr. Ibis Cristina SCREEN RAPID (URINE)on 08-07-1177EDJZnmhwbhbDhrgcxZIDTYXWC [facility] HospitalComuniversity of [facility] on above:Performed By: #### BMP #### [facility] [address] [place] [address] Dr. Ibis ParkinsonPositiveAbnormalNEGATIVEPremier Health on above: Performed By: #### BMP #### [facility] [address] [place] [address] Dr. Ibis MarquesPNegativeNormalNEGATIVEPremier Health on above: Performed By: #### BMP #### [facility] [address] [place] [address] Dr. Ibis MartinZOPositiveAbnormalNEGATIVEMary Rutan HospitalComuniversity of [facility] health on above: Performed By: #### BMP #### [facility] [address] [place] [address] Dr. Ibis DanielCNegativeNormalNEGATIVEMary Rutan HospitalComuniversity of mich[facility] health on above: Performed By: #### BMP #### [facility] [address] [place] [address] Dr. Ibis [facility]omerene Memorial HospitalComment on above: Result Comment: AMP (Amphetamine): 500ng/mL, BAR (Barbituates): 200 ng/mL, BZO (Benzodiazepines): 150 ng/mL, BUP (Buprenorphine): 10 ng/mL, SEMAJ (Cocaine): 150 ng/mL, mAMP (Methamphetamine): 500 ng/mL, MTD (Methadone): 200 ng/mL, OPI (Opiates): 100 ng/mL, OXY (Oxycodone): 100 ng/mL, PCP (Phencyclidine): 25 ng/mL, PPX (Propoxyphene): 300 ng/mL, THC (Cannabinoids): 50 ng/mL, TCA (Trycyclic Antidepressants): 300 ng/mLPerformed By: #### BMP #### [facility] [address] [place] [address] Dr. Ibis JimenezDRUG CUT HEADERDRUG CLASS TEST SYSTEM CUT-OFF CONCENTRATIONS ARE FOLLOWS:NormalPremier Health on above:Performed By: #### BMP #### [facility] [address] [place] [address] Dr. Ibis JimenezmAMPNegativeNormalNEGATIVEMary Rutan HospitalComment on above: Performed By: #### BMP #### [facility] [address] [place] [address] Dr. Ibis JimenezMTDNegativeNormalNEGATIVEPremier Health on above: Performed By: #### BMP #### [facility] [address] [place] [address] Dr. Ibis SenINegativeNormalNEGATIVEPremier Health on above: Performed By: #### BMP #### [facility] [address] [place] [address] Dr. Ibis JimenezOXYNegativeNormalNEGATIVEPremier Health on above: Performed By: #### BMP #### [facility] [address] [place] [address] Dr. Ibis JimenezPCPNegativeNormalNEGATIVEPremier Health on above: Performed By: #### BMP #### [facility] [address] [place] [address] Dr. Ibis JimenezPPXNegativeNormalNEGATIVEMary Rutan HospitalComment on above: Performed By: #### BMP #### [facility] [address] [address] [address] Ibis JimenezTCAPositiveAbnormalNEGATIVEMary Rutan HospitalComuniversity of [facility] on above: Performed By: #### BMP #### [facility] [address] [place] [address] Dr. Ibis JimenezTHCPositiveAbnormalNEGATIVEMary Rutan HospitalComment on above: Performed By: #### BMP #### [facility] [address] [address] [address] Ibis Drake URINE PROFILEon [id number] Ql (U)NegativeNormal NEGATIVEMary Rutan HospitalComment on above:Performed By: #### ACET, SALYC #### [facility] [address] [place] [address] Dr. Ibis JimenezClarity (U)CLEARNormalCLEARMary Rutan HospitalComment on above: Performed By: #### ACET, SALYC #### [facility] [address] [place] [address] Dr. Ibis JimenezColor (U)YELLOWNormalYELLOWMary Rutan HospitalComment on above: Performed By: #### ACET, SALYC #### [facility] [address] [place] [address] Dr. Ibis Chang micrscopic examination will be performed if indicated. NormalThe [facility] HospitalComment on above:Performed By: #### ACET, SALYC #### [facility] [address] [place] [address] Dr. Ibis JimenezGlucose Ql (U)NegativeNormalNEGATIVEMary Rutan HospitalComment on above:Performed By: #### ACET, SALYC #### [facility] [address] [place] [address] Dr. Ibis JimenezHemoglobin Ql (U)NegativeNormalNEGATIVEMercy Health St[facility] on above:Performed By: #### ACET, SALYC #### [facility] [address] [place] [address] Dr. Ibis JimenezKetones Ql (U)NegativeNormalNEGATIVEMary Rutan HospitalComment on above:Performed By: #### ACET, SALYC #### [facility] [address] [place] [address] Dr. Ibis JimenezLEUKOCYTESNegativeNormalNEGATIVEThe [facility] HospitalComment on above:Performed By: #### ACET, SALYC #### [facility] [address] [place] [address] Dr. Ibis JimenezNitrite Ql (U)NegativeNormalNEGATIVEThe [facility] HospitalComment on above:Performed By: #### ACET, SALYC #### [facility] [address] [place] [address] Dr. Ibis JimenezpH (U)5.0 [pH]Normal5-9The [facility] on above: Performed By: #### ACET, SALYC #### [facility] [address] [place] [address] Dr. Ibis JimenezSPEC GRAVITY>=1.261Vlobsjkv2.005-<=1.025The [facility] Comment on above:Performed By: #### ACET, SALYC #### [facility] [address] [place] [address] Dr. Ibis Quintanilla PROTEINNegativeNormalNEGATIVE/ TRACEThe [facility] Comment on above:Performed By: #### ACET, SALYC #### [facility] [address] [place] [address] Dr. Ibis JimenezUR MICRO INDNOT INDICATEDNormalThe [facility] HospitalComment on above:Performed By: #### ACET, SALYC #### [facility] [address] [place] [address] Dr. Ibis JimenezUrobilinogen Qn (U)0.2 {Dinorah'U}/dLNormal0.2 - 1.0The [facility] on above:Performed By: #### ACET, SALYC #### [facility] [address] [place] [address] Dr. Ibis JimenezPROF CHEM 8 (BAS METB)on 10-74-9105Oshzx gap [Moles/Vol]13.1 mmol/LNormalThe Alejandra HospitalComment on above:Performed By: #### MONO #### [facility] [address] [address] [address] Ibis JimenezCalcium [Mass/Vol]8.3 mg/dLCritically low8.5-10.1The [facility] HospitalComment on above:Performed By: #### MONO #### [facility] [address] [address] [address] Ibis JimenezChloride [Moles/Vol]109 mmol/LCritically enoo00-360Ret [facility] HospitalComment on above:Performed By: #### MONO #### [facility] [address] [address] [address] Ibis JimenezCO2 [Moles/Vol]25.7 mmol/QZxmvpj40.0-32.0The [facility] Comment on above:Performed By: #### MONO #### [facility] [address] [place] [address] Dr. Ibis JimenezCreatinine [Mass/Vol]0.82 mg/dLNormal0.55-1.02The [facility] HospitalComment on above:Performed By: #### MONO #### [facility] [address] [place] [address] Dr. Ibis RojasGFR-AF GAMBIAN>60Normal>=60The [facility] HospitalComment on above:Performed By: #### MONO #### [facility] [address] [address] [address] Ibis RojasGFR-NON AF GAMBIAN>60Normal>=60The [facility] HospitalComment on above:Performed By: #### MONO #### [facility] [address] [address] [address] Ibis JimenezGlucose [Mass/Vol]95 mg/iTEffakm85-437Ghp [facility] Comment on above:Performed By: #### MONO #### [facility] [address] [address] [address] Ibis JimenezPotassium [Moles/Vol]3.8 mmol/LNormal3.5-5.1The [facility] Comment on above:Performed By: #### MONO #### [facility] [address] [address] [address] Ibis JimenezSodium [Moles/Vol]144 mmol/DJjqyub761-084Hwx [facility] Comment on above:Performed By: #### MONO #### [facility] [address] [address] [address] Ibis JimenezUrea nitrogen [Mass/Vol]16.0 mg/dLNormal7.0-18.0Mary Rutan HospitalComment on above:Performed By: #### MONO #### [facility] [address] [place] [address] Dr. Ibsi JimenezUrea nitrogen/Creatinine [Mass ratio]19.5 mg/mgNoalThe [facility] HospitalComment on above:Performed By: #### MONO #### [facility] [address] [place] [address] Dr. Ibis JimenezACETAMINOPHENon 10-78-3394Zuiwpbqqyijbr [Mass/Vol]ug/mLCritically low10.0-30.0Mary Rutan HospitalComment on above:Performed By: #### ACET, SALYC #### [facility] [address] [place] [address] Dr. Ibis JimenezDRUG SCREEN RAPID (URINE)on 90-92-6795XTYElfefxgcZgwzmcGQCHTDYX The [facility] HospitalComment on above:Performed By: #### MONO #### [facility] [address] [place] [address] Dr. Ibis JimenezBARPositiveAbnormalNEGATIVEMary Rutan HospitalComment on above: Performed By: #### MONO #### [facility] [address] [place] [address] Dr. Ibis JimenezBUPNegativeNormalNEGATIVEThe [facility] HospitalComment on above: Performed By: #### MONO #### [facility] [address] [place] [address] Dr. Ibis JimenezBZOPositiveAbnormalNEGATIVEThe [facility] HospitalComment on above: Performed By: #### MONO #### [facility] [address] [place] [address] Dr. bIis DanielCNegativeNormalNEGATIVEMary Rutan HospitalComment on above: Performed By: #### MONO #### [facility] [address] [place] [address] Dr. Ibis YanFisher-Titus Medical CenterComment on above: Result Comment: AMP (Amphetamine): 500ng/mL, BAR (Barbituates): 200 ng/mL, BZO (Benzodiazepines): 150 ng/mL, BUP (Buprenorphine): 10 ng/mL, SEMAJ (Cocaine): 150 ng/mL, mAMP (Methamphetamine): 500 ng/mL, MTD (Methadone): 200 ng/mL, OPI (Opiates): 100 ng/mL, OXY (Oxycodone): 100 ng/mL, PCP (Phencyclidine): 25 ng/mL, PPX (Propoxyphene): 300 ng/mL, THC (Cannabinoids): 50 ng/mL, TCA (Trycyclic Antidepressants): 300 ng/mLPerformed By: #### MONO #### [facility] [address] [place] [address] Dr. Ibis JimenezDRUG CUT HEADERDRUG CLASS TEST SYSTEM CUT-OFF CONCENTRATIONS ARE FOLLOWS:NormalThe [facility] HospitalComuniversity of [facility] on above:Performed By: #### MONO #### [facility] [address] [place] [address] Dr. Ibis JimenezmAMPNegativeNormalNEGATIVEMary Rutan HospitalComuniversity of [facility] on above: Performed By: #### MONO #### [facility] [address] [place] [address] Dr. Ibis JimenezMTDNegativeNormalNEGATIVEMary Rutan HospitalComuniversity of [facility] on above: Performed By: #### MONO #### [facility] [address] [place] [address] Dr. Ibis SenIPositiveAbnormalNEGATIVEMary Rutan HospitalComun[facility] of [facility] on above: Performed By: #### MONO #### [facility] [address] [place] [address] Dr. Ibis JimenezOXYNegativeNormalNEGATIVETrinity Health Systemment on above: Performed By: #### MONO #### [facility] [address] [place] [address] Dr. Ibis JimenezPCPNegativeNormalNEGATIVEMary Rutan HospitalComuniversity of [facility] on above: Performed By: #### MONO #### [facility] [address] [place] [address] Dr. Ibis JimenezPPXNegativeNormalNEGATIVEMary Rutan HospitalComun[facility] of [facility] on above: Performed By: #### MONO #### [facility] [address] [place] [address] Dr. Ibsi JimenezTCANegativeNormalNEGATIVEMary Rutan HospitalComun[facility] of [facility] on above: Performed By: #### MONO #### [facility] [address] [place] [address] Dr. Ibis JimenezTHCPositiveAbnormalNEGATIVEPremier Health on above: Performed By: #### MONO #### [facility] [address] [place] [address] Dr. Ibis Drake URINE PROFILEon [id number] Ql (U)NegativeNormal NEGATIVEMary Rutan HospitalComuniversity of [facility] on above:Performed By: #### MONO #### [facility] [address] [place] [address] Dr. Ibis Sage (U)CLEARNormalCLEARMary Rutan HospitalComun[facility] of [facility] on above: Performed By: #### MONO #### [facility] [address] [place] [address] Dr. Ibis Rivera (U)YELLOWNormalYELLOWMary Rutan HospitalComuniversity of [facility] on above: Performed By: #### MONO #### [facility] [address] [place] [address] Dr. Ibis Chang micrscopic examination will be performed if indicated. NormalMary Rutan HospitalComuniversity of [facility] health on above:Performed By: #### MONO #### [facility] [address] [place] [address] Dr. Ibis Kerrose Ql (U)NegativeNormalNEGATIVEMary Rutan HospitalComuniversity of [facility] on above:Performed By: #### MONO #### [facility] [address] [place] [address] Dr. Ibis JimenezHemoglobin Ql (U)TRACE-INTACTAbnormalNEGATIVEMary Rutan HospitalComment on above:Performed By: #### MONO #### [facility] [address] [place] [address] Dr. Ibis JimenezKetones Ql (U)NegativeNormalNEGATIVERiverview Health Institute HospitalComment on above:Performed By: #### MONO #### [facility] [address] [place] [address] Dr. Ibis JimenezLEUKOCYTESNegativeNormalNEGATIVEMary Rutan HospitalComuniversity of [facility] on above:Performed By: #### MONO #### [facility] [address] [place] [address] Dr. Ibis JimenezNitrite Ql (U)NegativeNormalNEGATIVEMary Rutan HospitalComment on above:Performed By: #### MONO #### [facility] [address] [place] [address] Dr. Ibis JimenezpH (U)6.0 [pH]Normal5-9Mary Rutan HospitalComuniversity of [facility] health on above: Performed By: #### MONO #### [facility] [address] [place] [address] Dr. Ibis JimenezProtein (U) [Mass/Vol]30 mg/dLAbnormalNEGATIVE/ TRACEThe [facility] HospitalComment on above:Performed By: #### MONO #### [facility] [address] [place] [address] Dr. Ibis JimenezSPEC GRAVITY1.289Hqjejj7.005-<=1.025The [facility] HospitalComuniversity of [facility] on above:Performed By: #### MONO #### [facility] [address] [place] [address] Dr. Ibis Curtis MICRO INDINDICATEDNormalThe [facility] HospitalComment on above: Performed By: #### MONO #### [facility] [address] [place] [address] Dr. Ibis JimenezUrobilinogen Qn (U)0.2 {Dinorah'U}/dLNormal0.2 - 1.0The [facility] HospitalComment on above:Performed By: #### MONO #### [facility] [address] [place] [address] Dr. Ibis McdanielANOL (BLD ALC)on 28-74-0610LXR NOTENOTE: 80 mg/dl is the legal limit for a blood alcohol levelNoMercy Health St. Anne HospitalComment on above: Performed By: #### AMM #### [facility] [address] [place] [address] Dr. Ibis Mcdanielanol [Mass/Vol]mg/dLNoMercy Health St. Anne HospitalComment on above:Performed By: #### AMM #### [facility] [address] [place] [address] Dr. Ibis JimenezPOINT OF CARE GLUCOSEon 71-45-1458Xcgeprz [Mass/Vol]88 mg/dL Xxeskw38-859Rab [facility] HospitalComment on above:Performed By: #### CVDTBH #### [facility] [address] [place] [address] Dr. Ibis JimenezPREGNANCY URon 08-57-5710LNOVBZOYR, QUALNegativeNormalNEGATIVEThe [facility] HospitalComment on above:Performed By: #### MONO #### [facility] [address] [place] [address] Dr. Ibis JimenezPROF CHEM 8 (BAS METB)on 16-24-4066Oohyr gap [Moles/Vol]12.6 mmol/LNormalThe [facility] HospitalComment on above:Performed By: #### AMM #### [facility] [address] [place] [address] Dr. Ibis JimenezCalcium [Mass/Vol]8.4 mg/dLCritically low8.5-10.1The [facility] HospitalComment on above:Performed By: #### AMM #### [facility] [address] [place] [address] Dr. Ibis JimenezChloride [Moles/Vol]107 mmol/AUuwuvv78-520Azw [facility] Comment on above:Performed By: #### AMM #### [facility] [address] [address] [address] Ibis JimenezCO2 [Moles/Vol]22.5 mmol/CDjrccw12.0-32.0The [facility] Comment on above:Performed By: #### AMM #### [facility] [address] [address] [address] Ibis JimenezCreatinine [Mass/Vol]0.82 mg/dLNormal0.55-1.02The [facility] HospitalComment on above:Performed By: #### AMM #### [facility] [address] [address] [address] Ibis RojasGFR-AF GAMBIAN>60Normal>=60The [facility] HospitalComment on above:Performed By: #### AMM #### [facility] [address] [place] [address] Dr. Ibis RojasGFR-NON AF GAMBIAN>60Normal>=60The [facility] HospitalComment on above:Performed By: #### AMM #### [facility] [address] [address] [address] Ibis JimenezGlucose [Mass/Vol]87 mg/yCKyfcmz70-064ZpeMary Rutan Hospital Comment on above:Performed By: #### AMM #### [facility] [address] [address] [address] Ibis JimenezPotassium [Moles/Vol]4.1 mmol/LNormal3.5-5.1The [facility] Comment on above:Performed By: #### AMM #### [facility] [address] [address] [address] Ibis JimenezSodium [Moles/Vol]138 mmol/QSrzmkp985-250Bfe [facility] Comment on above:Performed By: #### AMM #### [facility] [address] [address] [address] Ibis JimenezUrea nitrogen [Mass/Vol]22.0 mg/dLCritically high7.0-18.0The [facility] HospitalComment on above:Performed By: #### AMM #### [facility] [address] [address] [address] Ibis Lama nitrogen/Creatinine [Mass ratio]26.8 mg/mgNoMercy Health St. Anne HospitalComment on above:Performed By: #### AMM #### [facility] [address] [place] [address] Dr. Ibis JimenezSALICYLATEon 86-04-2273QSXCHNOPEJ<2.8Normal<=19.9The [facility] HospitalComment on above:Performed By: #### ACET, SALYC #### [facility] [address] [place] [address] Dr. Ibis Morris MICROSCOPIC ONLYon 37-38-3960ZSGNMVWWPGFZ SEENNormalNONE SEENMary Rutan HospitalComuniversity of [facility] health on above:Performed By: #### MONO #### [facility] [address] [place] [address] Dr. Ibis JimenezBactanthony identified Cx Nom (U)NOT INDICATEDNoMercy Health St. Anne HospitalComment on above:Performed By: #### MONO #### [facility] [address] [place] [address] Dr. Ibis JimenezCASTSEENAbnormalNONE SEENPremier Health on above: Performed By: #### MONO #### [facility] [address] [place] [address] Dr. Ibis JimenezCrystals LM Nom (Urine sed)NONE SEENNormalNONE SEENMary Rutan HospitalComuniversity of [facility] health on above:Performed By: #### MONO #### [facility] [address] [place] [address] Dr. Baumann ChangEpithelial cells LM Ql (Urine sed)MODERATEAbnormalNONE SEEN /RARE The [facility] HospitalComun[facility] on above:Performed By: #### MONO #### [facility] [address] [place] [address] Dr. Ibis GargALINE CASTFEWAvita Health System Bucyrus HospitalComment on above: Performed By: #### MONO #### [facility] [address] [place] [address] Dr. Ibis McculloughUSRM SEENNormalNONE SEENMary Rutan HospitalComment on above:Performed By: #### MONO #### [facility] [address] [place] [address] Dr. Ibis JimenezQqpawASR2-2Leizhqlg8-1Dad [facility] HospitalComment on above:Performed By: #### MONO #### [facility] [address] [place] [address] Dr. Ibis JimenezWBCRM SEENNormalNONE SEENMary Rutan HospitalComment on above: Performed By: #### MONO #### [facility] [address] [place] [address] Dr. Ibis Alexis AUTO DIFFon 28-37-0859TGQS #0.0 103/ulNormal0.0-0.1The [facility] HospitalComment on above:Performed By: #### CVDTBH #### [facility] [address] [place] [address] Dr. Ibis JimenezBasophils/100 WBC (Bld)0.3 %Normal0.2-2.0The [facility] on above:Performed By: #### CVDTBH #### [facility] [address] [place] [address] Dr. Ibis Acevedo #0.0 103/ulNormal0.0-0.7The [facility] HospitalComment on above: Performed By: #### CVDTBH #### [facility] [address] [place] [address] Dr. Ibis Rojasosinophils/100 WBC (Bld)0.1 %Critically low0.9-7.0The [facility] HospitalComment on above:Performed By: #### CVDTBH #### [facility] [address] [place] [address] Dr. Ibis Rojasrythrocyte distribution width (RBC) [Ratio]13.2 %Wsuevo17.0-15.0 The [facility] HospitalComment on above:Performed By: #### CVDTBH #### [facility] [address] [place] [address] Dr. Ibis JimenezHematocrit (Bld) [Volume fraction]38.5 %Nprahe89.0-48.0The [facility] HospitalComment on above:Performed By: #### CVDTBH #### [facility] [address] [place] [address] Dr. Ibis JimenezHemoglobin (Bld) [Mass/Vol]12.4 g/kTPbvlgb60.0-16.0The [facility] HospitalComment on above:Performed By: #### CVDTBH #### [facility] [address] [place] [address] Dr. Ibis Soto #0.20 10e3/ulCritically high0.00-0.03The [facility] Comment on above:Performed By: #### CVDTBH #### [facility] [address] [place] [address] Dr. Ibis Soto %1.8 %Critically high0.0-0.5The [facility] HospitalComment on above:Performed By: #### CVDTBH #### [facility] [address] [place] [address] Dr. Ibis Monsalve #0.5 103/ulCritically low1.2-3.8The [facility] Comment on above:Performed By: #### CVDTBH #### [facility] [address] [place] [address] Dr. Ibis Vuongmphocytes/100 WBC (Bld)4.6 %Critically low20.5-60.0Mary Rutan HospitalComment on above:Performed By: #### CVDTBH #### [facility] [address] [place] [address] Dr. Ibis JimenezMANUAL DIFF REQNONormalThe [facility] HospitalComment on above: Performed By: #### CVDTBH #### [facility] [address] [place] [address] Dr. Ibis Irby (RBC) [Entitic mass]28.2 hgXswscu52.7-34.0The [facility] HospitalComment on above:Performed By: #### CVDTBH #### [facility] [address] [place] [address] Dr. Ibis FrankHC (RBC) [Mass/Vol]32.2 g/rPTxbxlf31.9-35.2The [facility] HospitalComment on above:Performed By: #### CVDTBH #### [facility] [address] [place] [address] Dr. Ibis Frank (RBC) [Entitic vol]87.5 xBQolfhg10.0-99.0The [facility] HospitalComment on above:Performed By: #### CVDTBH #### [facility] [address] [place] [address] Dr. Ibis Magallanes #0.1 103/ulCritically low0.3-0.8The [facility] HospitalComment on above:Performed By: #### CVDTBH #### [facility] [address] [place] [address] Dr. Ibis Barbaocytes/100 WBC (Bld)1.3 %Critically low1.7-12.0The [facility] HospitalComment on above:Performed By: #### CVDTBH #### [facility] [address] [place] [address] Dr. Ibis Schultz #10.1 103/ulCritically high1.4-6.5The [facility] Comment on above:Performed By: #### CVDTBH #### [facility] [address] [place] [address] Dr. Ibis Hiutrophils/100 WBC (Bld)91.9 %Critically high43.0-75.0The [facility] HospitalComment on above:Performed By: #### CVDTBH #### [facility] [address] [place] [address] Dr. Ibis Olsenlet mean volume (Bld) [Entitic vol]9.1 fLCritically low 9.5-13.5The [facility] HospitalComment on above:Performed By: #### CVDTBH #### [facility] [address] [place] [address] Dr. Ibis EricksonT240 103/qfFupdcl422-132Ijc [facility] HospitalComment on above: Performed By: #### CVDTBH #### [facility] [address] [place] [address] Dr. Ibis JimenezRBC4.40 106/ulNormal4.20-5.40The [facility] HospitalComment on above:Performed By: #### CVDTBH #### [facility] [address] [place] [address] Dr. Ibis JimenezWBC11.0 103/ulNormal4.0-11.0The [facility] HospitalComment on above:Performed By: #### CVDTBH #### [facility] [address] [place] [address] Dr. Ibis Charles 14(COMP METB)on 86-72-9632Lnishjk [Mass/Vol]3.3 g/dL Critically low3.4-5.0The [facility] HospitalComment on above:Performed By: #### BMP #### [facility] [address] [place] [address] Dr. Ibis JimenezAlbumin/Globulin [Mass ratio]0.9 {ratio}NormalThe [facility] HospitalComment on above:Performed By: #### BMP #### [facility] [address] [place] [address] Dr. Ibis Ramos [Catalytic activity/Vol]63 U/NLillyl99-245Qih [facility] HospitalComment on above:Performed By: #### BMP #### [facility] [address] [place] [address] Dr. Ibis Underwood [Catalytic activity/Vol]32 U/PNgjqwk15-72Sbn [facility] HospitalComment on above:Performed By: #### BMP #### [facility] [address] [place] [address] Dr. Ibis Bal gap [Moles/Vol]12.9 mmol/LNormalThe [facility] on above:Performed By: #### BMP #### [facility] [address] [place] [address] Dr. Ibis Paris [Catalytic activity/Vol]14 U/LCritically ehr66-05Wpi [facility] HospitalComment on above:Performed By: #### BMP #### [facility] [address] [place] [address] Dr. Ibis JimenezBilirubin [Mass/Vol]0.2 mg/dLNormal0.2-1.0[facility] Comment on above:Performed By: #### BMP #### [facility] [address] [place] [address] Dr. Ibis JimenezCalcium [Mass/Vol]8.5 mg/dLNormal8.5-10.1The [facility] Comment on above:Performed By: #### BMP #### [facility] [address] [place] [address] Dr. Ibis JimenezChloride [Moles/Vol]106 mmol/XAxzfyo43-674UdiMary Rutan Hospital Comment on above:Performed By: #### BMP #### [facility] [address] [place] [address] Dr. Ibis JimenezCO2 [Moles/Vol]26.6 mmol/NUjozng97.0-32.0The [facility] Comment on above:Performed By: #### BMP #### [facility] [address] [place] [address] Dr. Ibis JimenezCreatinine [Mass/Vol]0.89 mg/dLNormal0.55-1.02The [facility] HospitalComment on above:Performed By: #### BMP #### [facility] [address] [place] [address] Dr. Ibis RojasGFR-AF GAMBIAN>60Normal>=60The [facility] HospitalComment on above:Performed By: #### BMP #### [facility] [address] [place] [address] Dr. Ibis RojasGFR-NON AF GAMBIAN>60Normal>=60The [facility] HospitalComment on above:Performed By: #### BMP #### [facility] [address] [place] [address] Dr. Ibis JimenezGlobulin (S) [Mass/Vol]3.6 g/dLNormalThe [facility] HospitalComment on above:Performed By: #### BMP #### [facility] [address] [address] [address] Ibis JimenezGlucose [Mass/Vol]134 mg/dLCritically dtes53-852PrvMary Rutan HospitalComment on above:Performed By: #### BMP #### [facility] [address] [address] [address] Ibis JimenezPotassium [Moles/Vol]4.5 mmol/LNormal3.5-5.1[facility] Comment on above:Performed By: #### BMP #### [facility] [address] [address] [address] Ibis JimenezProtein [Mass/Vol]6.9 g/dLNormal6.4-8.2[facility] Comment on above:Performed By: #### BMP #### [facility] [address] [address] [address] Ibis JimenezSodium [Moles/Vol]141 mmol/OFmctik204-546HkfMary Rutan Hospital Comment on above:Performed By: #### BMP #### [facility] [address] [address] [address] Ibis JimenezUrea nitrogen [Mass/Vol]15.0 mg/dLNormal7.0-18.0[facility] HospitalComment on above:Performed By: #### BMP #### [facility] [address] [address] [address] Ibis JimenezUrea nitrogen/Creatinine [Mass ratio]16.9 mg/mgNormalThSelect Medical Specialty Hospital - Cleveland-FairhillComment on above:Performed By: #### BMP #### [facility] [address] [address] [address] Ibis JimenezCT HEAD WO CONon [id number] HEAD WO CONEXAMINATION: CT HEAD WO CON, [...] Electronically authenticated by: NICHOLAS MARCUS Date: 2022-05-23 19:25NoMercy Health St. Anne HospitalCT LSPINE WO CONon [id number] LSPINE WO CONCT CERVICAL SPINE WITHOUT CONTRAST. [...] with vacuum phenomenon. Electronically authenticated by: SINDY [facility] Date: 2022-05-23 19:41NoMercy Health St[address] Anne HospitalCT HEAD WO CONon [id number] HEAD WO CONStudy: CT HEAD WO CON [...] Electronically authenticated by: ROBIN IRBY Date: 2022-03-31 22:40NormSelect Medical [facility] Clinic [facility] Hospital, BeachwoodCovid-19 PCR (CVDTBH)on [id number]-CoV-2 (COVID-19) RNA SAURABH+probe Ql (Unsp spec)Not detectedNormalNOT DETECTEDThe [facility] Comment on above:Result Comment: When diagnostic testing [...] for this test is supported by the [place] of [employer] and Human Service's declaration that [...] longer be used).Performed By: #### CVDTBH #### [facility] [address] [place] [address] [id number] [address] Ibis Drake URINE PROFILEon 04-27-5701Jbmlzzzlr Ql (U)NegativeNormal NEGATIVEThe [facility] HospitalComment on above:Performed By: #### ACET, SALYC #### [facility] [address] [place] [address] Dr. Ibis Pratherarity (U)CLEARNormalCLEARMary Rutan HospitalComment on above: Performed By: #### ACET, SALYC #### [facility] [address] [place] [address] Dr. Ibis Rivera (U)YELLOWNormalYELLOWMary Rutan HospitalComment on above: Performed By: #### ACET, SALYC #### [facility] [address] [address] [address] Ibis Chang micrscopic examination will be performed if indicated. NormalThe [facility] HospitalComment on above:Performed By: #### ACET, SALYC #### [facility] [address] [place] [address] Dr. Ibis JimenezGlucose Ql (U)NegativeNormalNEGATIVEMary Rutan HospitalComment on above:Performed By: #### ACET, SALYC #### [facility] [address] [place] [address] Dr. Ibis JimenezHemoglobin Ql (U)SMALLAbnormalNEGATIVEMercy Health St. [facility] on above:Performed By: #### ACET, SALYC #### [facility] [address] [place] [address] Dr. Ibis JimenezKetones Ql (U)NegativeNormalNEGATIVEMary Rutan HospitalComment on above:Performed By: #### ACET, SALYC #### [facility] [address] [place] [address] Dr. Ibis JimenezLEUKOCYTESNegativeNormalNEGATIVEMary Rutan HospitalComuniversity of [facility] health on above:Performed By: #### ACET, SALYC #### [facility] [address] [place] [address] Dr. Ibis JimenezNitrite Ql (U)NegativeNormalNEGATIVEMary Rutan HospitalComment on above:Performed By: #### ACET, SALYC #### [facility] [address] [place] [address] Dr. Ibis JimenezpH (U)5.5 [pH]Normal5-9The [facility] HospitalComment on above: Performed By: #### ACET, SALYC #### [facility] [address] [place] [address] Dr. Ibis JimenezSPEC GRAVITY>=1.131Dazcsvly5.005-<=1.025The [facility] Comment on above:Performed By: #### ACET, SALYC #### [facility] [address] [place] [address] Dr. Ibis Quintanilla PROTEINNegativeNormalNEGATIVE/ TRACEThe [facility] Comment on above:Performed By: #### ACET, SALYC #### [facility] [address] [place] [address] Dr. Ibis Curtis MICRO INDINDICATEDAvita Health System Bucyrus HospitalComment on above: Performed By: #### ACET, SALYC #### [facility] [address] [place] [address] Dr. Ibis Lorenzbilinogen Qn (U)0.2 {Dinorah'U}/dLNormal0.2 - 1.0[facility] HospitalComment on above:Performed By: #### ACET, SALYC #### [facility] [address] [place] [address] Dr. Ibis Garcia AND B AGon [id number] Hospital on above:Result Comment: Negative for Flu A protein angiten. Infection due to Flu A cannot be ruled out. FluA angiten in the sample may be below the detection limit of the test.Performed By: #### AMM #### [facility] [address] [place] [address] Dr. Ibis RuizUBNEGHSEE ProMed[facility] HospitalComuniversity of [facility] health on above: Result Comment: Negative for Flu B protein antigen. Infection due to Flu B cannot be ruled out. FluB antigen in the sample may be below the detection limit of the test.Performed By: #### AMM #### [facility] [address] [place] [address] Dr. Ibis Garcia AGNegativeNormalNEGATIVE SEE COMMENTThe [facility]enton HospitalComment on above:Performed By: #### AMM #### [facility] [address] [address] [address] Ibis Lagos AGNegativeNormalNEGATIVE SEE COMMENTThe [facility] HospitalComuniversity of mich[facility] health on above:Performed By: #### AMM #### [facility] [address] [address] [address] Ibis JimenezLACTATE/LACTIC ACIDon 66-34-1356Ftignjd [Moles/Vol]1.9 mmol/L Normal0.4-1.9The [facility] Hospitalment on above:Performed By: #### LACT #### [facility] [address] [place] [address] Dr. Ibis Morris MICROSCOPIC ONLYon [id number]J SEEN The [facility] HospitalComuniversity of michigan health on above:Performed By: #### ACET, SALYC #### [facility] [address] [place] [address] Dr. Ibis Pettit identified Cx Nom (U)NOT INDICATEDNoMercy Health St. Anne HospitalComuniversity of mich[facility] health on above:Performed By: #### ACET, SALYC #### [facility] [address] [place] [address] Dr. Ibis Baron SEENNormalNONE SEENPremier Health on above:Performed By: #### ACET, SALYC #### [facility] [address] [place] [address] Dr. Ibis Oviedo LM Nom (Urine sed)NONE SEENNormalNONE SEENPremier Health on above:Performed By: #### ACET, SALYC #### [facility] [address] [place] [address] Dr. Ibis Davisthelial cells LM Ql (Urine sed)RARENormalNONE SEEN /RAREThe [facility] on above:Performed By: #### ACET, SALYC #### [facility] [address] [place] [address] Dr. Ibis GallegosCOUSTRACEAbnormalNONE SEENThe Alejandra HospitalComment on above:Performed By: #### ACET, SALYC #### [facility] [address] [place] [address] Dr. Ibis BurrDfnxfDRL7-8Dbijkx9-0Idf [facility] Hospitalment on above:Performed By: #### ACET, SALYC #### [facility] [address] [place] [address] Dr. Ibis JimenezWBCNONE SEENNormalNONE SEENThe [facility] HospitalComment on above: Performed By: #### ACET, SALYC #### [facility] [address] [place] [address] Dr. Ibis JimenezAMMONIAon [id number] (P) [Moles/Vol]31 umol/RIwdeoe65-29 [facility] on above:Performed By: #### AMM #### [facility] [address] [place] [address] Dr. Ibis Alexis AUTO DIFFon [id number] #0.0 103/ulNormal0.0-0.1The [facility] HospitalComment on above:Performed By: #### AMM #### [facility] [address] [place] [address] Dr. Ibis JimenezBasophils/100 WBC (Bld)0.4 %Normal0.2-2.0[facility] Comment on above:Performed By: #### AMM #### [facility] [address] [place] [address] Dr. Ibis Acevedo #0.5 103/ulNormal0.0-0.7The [facility] on above: Performed By: #### AMM #### [facility] [address] [place] [address] Dr. Ibis Rojasosinophils/100 WBC (Bld)6.4 %Normal0.9-7.0The [facility] Comment on above:Performed By: #### AMM #### [facility] [address] [place] [address] Dr. Ibis Rojasrythrocyte distribution width (RBC) [Ratio]12.8 %Bxvphf86.0-15.0 The [facility] HospitalComment on above:Performed By: #### AMM #### [facility] [address] [place] [address] Dr. Ibis JimenezHematocrit (Bld) [Volume fraction]36.6 %Ckvqvx28.0-48.0The [facility] HospitalComment on above:Performed By: #### AMM #### [facility] [address] [place] [address] Dr. Ibis JimenezHemoglobin (Bld) [Mass/Vol]12.5 g/xSZmnlkr86.0-16.0The [facility] HospitalComment on above:Performed By: #### AMM #### [facility] [address] [place] [address] Dr. Ibis Soto #0.02 10e3/ulNormal0.00-0.03The [facility] HospitalComment on above:Performed By: #### AMM #### [facility] [address] [place] [address] Dr. Ibis Soto %0.3 %Normal0.0-0.5The [facility] HospitalComment on above: Performed By: #### AMM #### [facility] [address] [place] [address] Dr. Ibis Monsalve #2.0 103/ulNormal1.2-3.8The [facility] HospitalComment on above:Performed By: #### AMM #### [facility] [address] [place] [address] Dr. Ibis Brennerhocytes/100 WBC (Bld)25.0 %Gbxwdk04.5-60.0The [facility] HospitalComment on above:Performed By: #### AMM #### [facility] [address] [place] [address] Dr. Ibis NewtonUAL DIFF REQNONormalThe [facility] HospitalComment on above: Performed By: #### AMM #### [facility] [address] [place] [address] Dr. Ibis Irby (RBC) [Entitic mass]29.5 wbCnrbrr72.7-34.0The [facility] HospitalComment on above:Performed By: #### AMM #### [facility] [address] [place] [address] Dr. Ibis Frank (RBC) [Mass/Vol]34.2 g/uFGhvxuk02.9-35.2The [facility] HospitalComment on above:Performed By: #### AMM #### [facility] [address] [place] [address] Dr. Ibis FrankV (RBC) [Entitic vol]86.3 gWUsojzd44.0-99.0The [facility] HospitalComment on above:Performed By: #### AMM #### [facility] [address] [place] [address] Dr. Ibis Magallanes #0.4 103/ulNormal0.3-0.8The [facility] HospitalComment on above:Performed By: #### AMM #### [facility] [address] [place] [address] Dr. Ibis Barbaocytes/100 WBC (Bld)5.6 %Normal1.7-12.0The [facility] Comment on above:Performed By: #### AMM #### [facility] [address] [place] [address] Dr. Ibis Schultz #4.9 103/ulNormal1.4-6.5The [facility] HospitalComment on above:Performed By: #### AMM #### [facility] [address] [place] [address] Dr. Ibis Hiutrophils/100 WBC (Bld)62.3 %Krvobl12.0-75.0The [facility] HospitalComment on above:Performed By: #### AMM #### [facility] [address] [place] [address] Dr. Ibis Olsenlet mean volume (Bld) [Entitic vol]9.5 fLNormal9.5-13.5The [facility] HospitalComment on above:Performed By: #### AMM #### [facility] [address] [place] [address] Dr. Ibis JimenezPLT246 103/kuChsovv333-660Mjc [facility] HospitalComment on above: Performed By: #### AMM #### [facility] [address] [place] [address] Dr. Ibis JimenezRBC4.24 106/ulNormal4.20-5.40The [facility] HospitalComment on above:Performed By: #### AMM #### [facility] [address] [place] [address] Dr. Ibis JimenezWBC7.8 103/ulNormal4.0-11.0The [facility] HospitalComment on above: Performed By: #### AMM #### [facility] [address] [place] [address] Dr. Ibis Barrios BLOODon 18-37-9021Xgipniughdc examination of blood, cultureCulture Observations: NO GROWTH AT 5 DAYS.NormalThe [facility] HospitalComment on above:Performed By: #### [id number] #### [facility] [address] [place] [address] Dr. Ibis JimenezMicroscopic examination of blood, cultureCulture Observations: NO GROWTH AT 5 DAYS.NormalThe [facility] HospitalComment on above:Performed By: #### BMP #### [facility] [address] [place] [address] Dr. Ibis JimenezLACTATE/LACTIC ACIDon 00-90-5921Vouxrnv [Moles/Vol]2.8 mmol/L Critically high0.4-1.9The [facility] HospitalComment on above:Performed By: #### CVDTBH #### [facility] [address] [place] [address] Dr. Ibis Charles 14(COMP METB)on 89-18-5064Rewtcwm [Mass/Vol]3.4 g/dLNormal 3.4-5.0The [facility] HospitalComment on above:Performed By: #### BMP #### [facility] [address] [place] [address] Dr. Ibis JimenezAlbumin/Globulin [Mass ratio]1.2 {ratio}NormalThe [facility] HospitalComment on above:Performed By: #### BMP #### [facility] [address] [place] [address] Dr. Ibis EspinozaP [Catalytic activity/Vol]85 U/HHyypkf41-222Dxl [facility] HospitalComment on above:Performed By: #### BMP #### [facility] [address] [place] [address] Dr. Ibis EspinozaT [Catalytic activity/Vol]18 U/TWwjxdo08-78Bqj [facility] HospitalComment on above:Performed By: #### BMP #### [facility] [address] [place] [address] Dr. Ibis Santoson gap [Moles/Vol]13.2 mmol/LNormalThe [facility] Comment on above:Performed By: #### BMP #### [facility] [address] [place] [address] Dr. Ibis JimenezAST [Catalytic activity/Vol]11 U/LCritically nur33-96Fit [facility] HospitalComment on above:Performed By: #### BMP #### [facility] [address] [place] [address] Dr. Ibis JimenezBilirubin [Mass/Vol]0.2 mg/dLNormal0.2-1.0The [facility] Comment on above:Performed By: #### BMP #### [facility] [address] [place] [address] Dr. Ibis JimenezCalcium [Mass/Vol]8.6 mg/dLNormal8.5-10.1The [facility] Comment on above:Performed By: #### BMP #### [facility] [address] [place] [address] Dr. Ibis JimenezChloride [Moles/Vol]105 mmol/QWuvolq86-618Pnv [facility] Comment on above:Performed By: #### BMP #### [facility] [address] [place] [address] Dr. Ibis JimenezCO2 [Moles/Vol]25.1 mmol/DEqsfqb00.0-32.0The [facility] Comment on above:Performed By: #### BMP #### [facility] [address] [place] [address] Dr. Ibis JimenezCreatinine [Mass/Vol]0.80 mg/dLNormal0.55-1.02The [facility] HospitalComment on above:Performed By: #### BMP #### [facility] [address] [address] [address] Ibis RojasGFR-AF GAMBIAN>60Normal>=60The [facility] HospitalComment on above:Performed By: #### BMP #### [facility] [address] [place] [address] Dr. Ibis RojasGFR-NON AF GAMBIAN>60Normal>=60The [facility] HospitalComment on above:Performed By: #### BMP #### [facility] [address] [place] [address] Dr. Ibis JimenezGlobulin (S) [Mass/Vol]2.9 g/dLNormalThe [facility] HospitalComment on above:Performed By: #### BMP #### [facility] [address] [place] [address] Dr. Ibis JimenezGlucose [Mass/Vol]99 mg/wEQcysrw34-272JtaMary [facility] Hospital Comment on above:Performed By: #### BMP #### [facility] [address] [place] [address] Dr. Ibis JimenezPotassium [Moles/Vol]3.3 mmol/LCritically low3.5-5.1The [facility] HospitalComment on above:Performed By: #### BMP #### [facility] [address] [place] [address] Dr. Ibis JimenezProtein [Mass/Vol]6.3 g/dLCritically low6.4-8.2The [facility] HospitalComment on above:Performed By: #### BMP #### [facility] [address] [place] [address] Dr. Ibis JimenezSodium [Moles/Vol]140 mmol/LPosrjb989-429SvrMary Rutan Hospital Comment on above:Performed By: #### BMP #### [facility] [address] [place] [address] Dr. Ibis Lama nitrogen [Mass/Vol]10.0 mg/dLNormal7.0-18.0[facility] HospitalComment on above:Performed By: #### BMP #### [facility] [address] [place] [address] Dr. Ibis Lama nitrogen/Creatinine [Mass ratio]12.5 mg/mgNormalThe [facility] HospitalComment on above:Performed By: #### BMP #### [facility] [address] [place] [address] Dr. Ibis Alexis AUTO DIFFon 39-79-7399JPRS #0.0 103/ulNormal0.0-0.1The [facility] HospitalComment on above:Performed By: #### AMM #### [facility] [address] [place] [address] Dr. Ibis JimenezBasophils/100 WBC (Bld)0.3 %Normal0.2-2.0[facility] Comment on above:Performed By: #### AMM #### [facility] [address] [place] [address] Dr. Ibis Acevedo #0.2 103/ulNormal0.0-0.7The [facility] HospitalComment on above: Performed By: #### AMM #### [facility] [address] [place] [address] Dr. Ibis Rojasosinophils/100 WBC (Bld)2.7 %Normal0.9-7.0The [facility] Comment on above:Performed By: #### AMM #### [facility] [address] [place] [address] Dr. Ibis Rojasrythrocyte distribution width (RBC) [Ratio]13.2 %Rojyvd43.0-15.0 [facility] HospitalComment on above:Performed By: #### AMM #### [facility] [address] [place] [address] Dr. Ibis JimenezHematocrit (Bld) [Volume fraction]35.7 %Critically low36.0-48.0 The [facility] HospitalComment on above:Performed By: #### AMM #### [facility] [address] [address] [address] Ibis JimenezHemoglobin (Bld) [Mass/Vol]12.2 g/rVPiftsk40.0-16.0The [facility] HospitalComment on above:Performed By: #### AMM #### [facility] [address] [address] [address] Ibis JimenezIG #0.04 10e3/ulCritically high0.00-0.03[facility] Comment on above:Performed By: #### AMM #### [facility] [address] [place] [address] Dr. Ibis Soto %0.5 %Normal0.0-0.5The [facility] HospitalComment on above: Performed By: #### AMM #### [facility] [address] [place] [address] Dr. Ibis Monsalve #2.1 103/ulNormal1.2-3.8The [facility] HospitalComment on above:Performed By: #### AMM #### [facility] [address] [place] [address] Dr. Ibis Vuongmphocytes/100 WBC (Bld)27.3 %Chokrg63.5-60.0The [facility] HospitalComment on above:Performed By: #### AMM #### [facility] [address] [address] [address] Ibis JimenezMANUAL DIFF REQNONormalThe [facility] HospitalComment on above: Performed By: #### AMM #### [facility] [address] [address] [address] Ibis Irby (RBC) [Entitic mass]29.0 uaQbltbb34.7-34.0The [facility] HospitalComment on above:Performed By: #### AMM #### [facility] [address] [address] [address] Ibis FrankHC (RBC) [Mass/Vol]34.2 g/aVZmhkmk59.9-35.2The [facility] HospitalComment on above:Performed By: #### AMM #### [facility] [address] [place] [address] Dr. Ibis FrankV (RBC) [Entitic vol]84.8 uYLyvwaj65.0-99.0The [facility] HospitalComment on above:Performed By: #### AMM #### [facility] [address] [place] [address] Dr. Ibis Magallanes #0.7 103/ulNormal0.3-0.8The [facility] HospitalComment on above:Performed By: #### AMM #### [facility] [address] [place] [address] Dr. Ibis Barbaocytes/100 WBC (Bld)8.7 %Normal1.7-12.0[facility] Comment on above:Performed By: #### AMM #### [facility] [address] [place] [address] Dr. Ibis Schultz #4.7 103/ulNormal1.4-6.5The [facility] HospitalComment on above:Performed By: #### AMM #### [facility] [address] [place] [address] Dr. Ibis Hiutrophils/100 WBC (Bld)60.5 %Dbwfgu95.0-75.0The [facility] HospitalComment on above:Performed By: #### AMM #### [facility] [address] [place] [address] Dr. Ibis Olsenlet mean volume (Bld) [Entitic vol]9.6 fLNormal9.5-13.5The [facility] HospitalComment on above:Performed By: #### AMM #### [facility] [address] [place] [address] Dr. Ibis JimenezPLT212 103/cpVtjitp010-437Anj Alejandra HospitalComment on above: Performed By: #### AMM #### [facility] [address] [place], [place] [address] Dr. Ibis JimenezRBC4.21 106/ulNormal4.20-5.40The [facility] on above:Performed By: #### AMM #### [facility] [address] [place], [place] [address] Dr. Ibis JimenezWBC7.7 103/ulNormal4.0-11.0The [facility] on above: Performed By: #### AMM #### [facility] [address] [address] [address] Ibis JimenezCT ABD/PELV W CONon [id number] ABD/PELV W CONEXAM: CT ABD/PELV W CON [...] Electronically authenticated by: TONY DAHL Date: 2022-01-14 20:01[facility] URINE PROFILEon [id number] Ql (U)NegativeNormal NEGATIVEMary Rutan HospitalComment on above:Performed By: #### ACET, SALYC #### [facility] [address] [place] [address] Dr. Ibis JimenezClarity (U)CLEARNormalCLEARMary Rutan HospitalComment on above: Performed By: #### ACET, SALYC #### [facility] [address] [place] [address] Dr. Ibis JimenezColor (U)LT. YELLOWNormalYELLOWMary Rutan HospitalComment on above:Performed By: #### ACET, SALYC #### [facility] [address] [address] [address] Ibis Chang micrscopic examination will be performed if indicated. NormalMary Rutan HospitalComment on above:Performed By: #### ACET, SALYC #### [facility] [address] [address] [address] Ibis JimenezGlucose Ql (U)NegativeNormalNEGATIVEMary Rutan HospitalComment on above:Performed By: #### ACET, SALYC #### [facility] [address] [address] [address] Ibis JimenezHemoglobin Ql (U)NegativeNormalNEGATIVEMary [facility] Comment on above:Performed By: #### ACET, SALYC #### [facility] [address] [address] [address] Ibis JimenezKetones Ql (U)NegativeNormalNEGATIVEMary Rutan HospitalComment on above:Performed By: #### ACET, SALYC #### [facility] [address] [address] [address] Ibis JimenezLEUKOCYTESTRACEAbnormalNEGATIVEMary Rutan HospitalComment on above:Performed By: #### ACET, SALYC #### [facility] [address] [address] [address] Ibis Avalostraldo Ql (U)NegativeNormalNEGATIVEThe [facility] HospitalComment on above:Performed By: #### ACET, SALYC #### [facility] [address] [address] [address] Ibis JimenezpH (U)5.5 [pH]Normal5-9The [facility] HospitalComment on above: Performed By: #### ACET, SALYC #### [facility] [address] [address] [address] Ibis JimenezSPEC GRAVITY1.146Lixvzz8.005-<=1.025The [facility] HospitalComment on above:Performed By: #### ACET, SALYC #### [facility] [address] [place] [address] Dr. Ibis Quintanilla PROTEINNegativeNormalNEGATIVE/ TRACEThe [facility] Comment on above:Performed By: #### ACET, SALYC #### [facility] [address] [address] [address] Ibis Curtis MICRO INDINDICATEDNormalThe [facility] HospitalComment on above: Performed By: #### ACET, SALYC #### [facility] [address] [address] [address] Ibis JimenezUrobilinogen Qn (U)0.2 {Dinorah'U}/dLNormal0.2 - 1.0The [facility] HospitalComment on above:Performed By: #### ACET, SALYC #### [facility] [address] [place] [address] Dr. Ibis JimenezPREGNANCY URon [id number], QUALNegativeNormalNEGATIVEThe [facility] HospitalComment on above:Performed By: #### ACET, SALYC #### [facility] [address] [place] [address] Dr. Ibis JimenezPROF CHEM 8 (BAS METB)on [id number] gap [Moles/Vol]9.9 mmol/LNormalThe [facility] HospitalComment on above:Performed By: #### BMP #### [facility] [address] [address] [address] Ibis JimenezCalcium [Mass/Vol]8.6 mg/dLNormal8.5-10.1[facility] Comment on above:Performed By: #### BMP #### [facility] [address] [address] [address] Ibis JimenezChloride [Moles/Vol]105 mmol/IVaisxs64-715Yvx [facility] Comment on above:Performed By: #### BMP #### [facility] [address] [address] [address] Ibis JimenezCO2 [Moles/Vol]27.5 mmol/OWyfqpi60.0-32.0[facility] Comment on above:Performed By: #### BMP #### [facility] [address] [place] [address] Dr. Ibis JimenezCreatinine [Mass/Vol]0.70 mg/dLNormal0.55-1.02The [facility] HospitalComment on above:Performed By: #### BMP #### [facility] [address] [place] [address] Dr. Ibis RojasGFR-AF GAMBIAN>60Normal>=60The [facility] HospitalComment on above:Performed By: #### BMP #### [facility] [address] [address] [address] Ibis RojasGFR-NON AF GAMBIAN>60Normal>=60The [facility] HospitalComment on above:Performed By: #### BMP #### [facility] [address] [address] [address] Ibis JimenezGlucose [Mass/Vol]83 mg/gXPruwdo79-851Egz [facility] Comment on above:Performed By: #### BMP #### [facility] [address] [place] [address] Dr. Ibsi JimenezPotassium [Moles/Vol]4.4 mmol/LNormal3.5-5.1[facility] Comment on above:Performed By: #### BMP #### [facility] [address] [address] [address] Ibis Guzmanum [Moles/Vol]138 mmol/IYqxgct049-358Ogn [facility] Comment on above:Performed By: #### BMP #### [facility] [address] [address] [address] Ibis JimenezUrea nitrogen [Mass/Vol]13.0 mg/dLNormal7.0-18.0The [facility] HospitalComment on above:Performed By: #### BMP #### [facility] [address] [address] [address] Ibis Lama nitrogen/Creatinine [Mass ratio]18.6 mg/mgNoalThe [facility] HospitalComment on above:Performed By: #### BMP #### [facility] [address] [place] [address] Dr. Ibis Morris MICROSCOPIC ONLYon [id number] SEENNormalNONE SEENMary Rutan HospitalComment on above:Performed By: #### ACET, SALYC #### [facility] [address] [address] [address] Ibis Pettit identified Cx Nom (U)NOT INDICATEDNoMercy Health St. Anne HospitalComment on above:Performed By: #### ACET, SALYC #### [facility] [address] [place] [address] Dr. Ibis Baron SEENNormalNONE SEENMary Rutan HospitalComuniversity of [facility] on above:Performed By: #### ACET, SALYC #### [facility] [address] [address] [address] Ibis Oviedo LM Nom (Urine sed)NONE SEENNormalNONE SEENMary [facility] HospitalComuniversity of [facility] on above:Performed By: #### ACET, SALYC #### [facility] [address] [address] [address] Baumann ChangEpithelial cells LM Ql (Urine sed)FEWAbnormalNONE SEEN /RAREThe [facility] HospitalComment on above:Performed By: #### ACET, SALYC #### [facility] [address] [address] [address] Ibis GallegosCOUSRM SEENNormalNONE SEENThe [facility] HospitalComment on above:Performed By: #### ACET, SALYC #### [facility] [address] [address] [address] Ibis JimenezRBCNONE SEENAbnormal0-2The [facility] HospitalComment on above: Performed By: #### ACET, SALYC #### [facility] [address] [address] [address] Ibis HamiltonBCRM SEENNormalNONE SEENThe [facility] HospitalComment on above: Performed By: #### ACET, SALYC #### [facility] [address] [place] [address] Dr. Ibis Alexis AUTO DIFFon [id number] #0.0 103/ulNormal0.0-0.1The [facility] HospitalComment on above:Performed By: #### ACET, SALYC #### [facility] [address] [place] [address] Dr. bIis Souzasophils/100 WBC (Bld)0.2 %Normal0.2-2.0The [facility] Comment on above:Performed By: #### ACET, SALYC #### [facility] [address] [place] [address] Dr. Ibis Acevedo #0.0 103/ulNormal0.0-0.7The [facility] Hospitalment on above: Performed By: #### ACET, SALYC #### [facility] [address] [place] [address] Dr. Ibis Rojasosinophils/100 WBC (Bld)0.4 %Critically low0.9-7.0The [facility] Hospitalment on above:Performed By: #### ACET, SALYC #### [facility] [address] [place] [address] Dr. Ibis Rojasrythrocyte distribution width (RBC) [Ratio]13.2 %Ygeptk61.0-15.0 The [facility] HospitalComment on above:Performed By: #### ACET, SALYC #### [facility] [address] [place] [address] Dr. Ibis JimenezHematocrit (Bld) [Volume fraction]39.7 %Mdsfvx94.0-48.0The [facility] HospitalComment on above:Performed By: #### ACET, SALYC #### [facility] [address] [place] [address] Dr. Ibis JimenezHemoglobin (Bld) [Mass/Vol]13.4 g/hMEzbqyi80.0-16.0The [facility] Hospitalment on above:Performed By: #### ACET, SALYC #### [facility] [address] [place] [address] Dr. Ibis Soto #0.06 10e3/ulCritically high0.00-0.03The [facility] Comment on above:Performed By: #### ACET, SALYC #### [facility] [address] [place] [address] Dr. Ibis Soto %0.5 %Normal0.0-0.5The [facility] HospitalComment on above: Performed By: #### ACET, SALYC #### [facility] [address] [place] [address] Dr. Ibis Monsalve #2.6 103/ulNormal1.2-3.8The [facility] HospitalComment on above:Performed By: #### ACET, SALYC #### [facility] [address] [place] [address] Dr. Ibis Brennerhocytes/100 WBC (Bld)23.8 %Tvurgn56.5-60.0The [facility] HospitalComment on above:Performed By: #### ACET, SALYC #### [facility] [address] [place] [address] Dr. Ibis NewtonUAL DIFF REQNONormalThe [facility] HospitalComment on above: Performed By: #### ACET, SALYC #### [facility] [address] [place] [address] Dr. Ibis Frank (RBC) [Entitic mass]28.8 mfEwilbn06.7-34.0The [facility] HospitalComment on above:Performed By: #### ACET, SALYC #### [facility] [address] [place] [address] Dr. Ibis Frank (RBC) [Mass/Vol]33.8 g/tVOxhzvx15.9-35.2The [facility] HospitalComment on above:Performed By: #### ACET, SALYC #### [facility] [address] [place] [address] Dr. Ibis JimenezMER[facility] (RBC) [Entitic vol]85.2 zAGjodwe21.0-99.0The [facility] HospitalComment on above:Performed By: #### ACET, SALYC #### [facility] [address] [place] [address] Dr. Ibis Magallanes #0.8 103/ulNormal0.3-0.8The [facility] HospitalComment on above:Performed By: #### ACET, SALYC #### [facility] [address] [place] [address] Dr. Ibis Barbaocytes/100 WBC (Bld)7.7 %Normal1.7-12.0[facility] Comment on above:Performed By: #### ACET, SALYC #### [facility] [address] [place] [address] Dr. Ibis Schultz #7.4 103/ulCritically high1.4-6.5The [facility] Comment on above:Performed By: #### ACET, SALYC #### [facility] [address] [place] [address] Dr. Ibis Hiutrophils/100 WBC (Bld)67.4 %Rxjaut74.0-75.0The [facility] HospitalComment on above:Performed By: #### ACET, SALYC #### [facility] [address] [place] [address] Dr. Ibis Olsenlet mean volume (Bld) [Entitic vol]9.8 fLNormal9.5-13.5The [facility] HospitalComment on above:Performed By: #### ACET, SALYC #### [facility] [address] [place] [address] Dr. Ibis JimenezPLT261 103/cgIzdgvt804-887Oga [facility] HospitalComment on above: Performed By: #### ACET, SALYC #### [facility] [address] [place] [address] Dr. Ibis JimenezRBC4.66 106/ulNormal4.20-5.40The [facility] HospitalComment on above:Performed By: #### ACET, SALYC #### [facility] [address] [place] [address] Dr. Ibis JimenezWBC10.9 103/ulNormal4.0-11.0The [facility] HospitalComment on above:Performed By: #### ACET, SALYC #### [facility] [address] [place] [address] Dr. Ibis JimenezPROF CHEM 8 (BAS METB)on [id number] gap [Moles/Vol]14.1 mmol/LNormalMary Rutan HospitalComment on above:Performed By: #### BMP #### [facility] [address] [place] [address] Dr. Ibis JimenezCalcium [Mass/Vol]8.5 mg/dLNormal8.5-10.1[facility] Comment on above:Performed By: #### BMP #### [facility] [address] [place] [address] Dr. bIis JimenezChloride [Moles/Vol]103 mmol/DItaipw49-194DgeMary [facility] Hospital Comment on above:Performed By: #### BMP #### [facility] [address] [place] [address] Dr. Ibis JimenezCO2 [Moles/Vol]22.5 mmol/ILcrmgw26.0-32.0[facility] Comment on above:Performed By: #### BMP #### [facility] [address] [place] [address] Dr. Yilan ChangCreatinine [Mass/Vol]0.64 mg/dLNormal0.55-1.02The [facility] HospitalComment on above:Performed By: #### BMP #### [facility] [address] [place] [address] Dr. Ibis RojasGFR-AF GAMBIAN>60Normal>=60The [facility] HospitalComment on above:Performed By: #### BMP #### [facility] [address] [place] [address] Dr. Ibis RojasGFR-NON AF GAMBIAN>60Normal>=60The [facility] HospitalComment on above:Performed By: #### BMP #### [facility] [address] [place] [address] Dr. Ibis JimenezGlucose [Mass/Vol]141 mg/dLCritically jvlu38-014Mej [facility] HospitalComment on above:Performed By: #### BMP #### [facility] [address] [place] [address] Dr. Ibis JimenezPotassium [Moles/Vol]3.6 mmol/LNormal3.5-5.1The [facility] Comment on above:Performed By: #### BMP #### [facility] [address] [place] [address] Dr. Ibis JimenezSodium [Moles/Vol]136 mmol/UPskupp285-051Ggx [facility] Comment on above:Performed By: #### BMP #### [facility] [address] [place] [address] Dr. Ibis JimenezUrea nitrogen [Mass/Vol]16.0 mg/dLNormal7.0-18.0The [facility] HospitalComment on above:Performed By: #### BMP #### [facility] [address] [place] [address] Dr. Ibis Lama nitrogen/Creatinine [Mass ratio]25.0 mg/mgNormalThe [facility] HospitalComment on above:Performed By: #### BMP #### [facility] [address] [place] [address] Dr. Ibis GonzalesC AUTO DIFFon [id number] #0.0 103/ulNormal0.0-0.1The [facility] HospitalComment on above:Performed By: #### ACET, SALYC #### [facility] [address] [place] [address] Dr. Ibis JimenezBasophils/100 WBC (Bld)0.4 %Normal0.2-2.0The [facility] Comment on above:Performed By: #### ACET, SALYC #### [facility] [address] [place] [address] Dr. Ibis Acevedo #0.2 103/ulNormal0.0-0.7The [facility] HospitalComment on above: Performed By: #### ACET, SALYC #### [facility] [address] [place] [address] Dr. Ibis Rojasosinophils/100 WBC (Bld)4.1 %Normal0.9-7.0The [facility] Comment on above:Performed By: #### ACET, SALYC #### [facility] [address] [place] [address] Dr. Ibis Rojasrythrocyte distribution width (RBC) [Ratio]13.2 %Damrxf53.0-15.0 The [facility] HospitalComment on above:Performed By: #### ACET, SALYC #### [facility] [address] [place] [address] Dr. Ibis JimenezHematocrit (Bld) [Volume fraction]34.3 %Critically low36.0-48.0 The [facility] HospitalComment on above:Performed By: #### ACET, SALYC #### [facility] [address] [place] [address] Dr. Ibis JimenezHemoglobin (Bld) [Mass/Vol]11.5 g/dLCritically low12.0-16.0The [facility] HospitalComment on above:Performed By: #### ACET, SALYC #### [facility] [address] [place] [address] Dr. Ibis Soto #0.01 10e3/ulNormal0.00-0.03The [facility] HospitalComment on above:Performed By: #### ACET, SALYC #### [facility] [address] [place] [address] Dr. Ibis Soto %0.2 %Normal0.0-0.5The [facility] HospitalComment on above: Performed By: #### ACET, SALYC #### [facility] [address] [place] [address] Dr. Ibis Monsavle #1.5 103/ulNormal1.2-3.8The [facility] HospitalComment on above:Performed By: #### ACET, SALYC #### [facility] [address] [place] [address] Dr. Ibis Brennerhocytes/100 WBC (Bld)26.4 %Nwyibu93.5-60.0The [facility] HospitalComment on above:Performed By: #### ACET, SALYC #### [facility] [address] [place] [address] Dr. Ibis Viera DIFF REQNONormalThe [facility] HospitalComment on above: Performed By: #### ACET, SALYC #### [facility] [address] [place] [address] Dr. Ibis Irby (RBC) [Entitic mass]28.8 uhPzxmqf24.7-34.0The [facility] Hospitalment on above:Performed By: #### ACET, SALYC #### [facility] [address] [place] [address] Dr. Ibis Frank (RBC) [Mass/Vol]33.5 g/eLWjtdtw95.9-35.2The [facility] HospitalComment on above:Performed By: #### ACET, SALYC #### [facility] [address] [place] [address] Dr. Ibis Dan (RBC) [Entitic vol]86.0 aMVrviow61.0-99.0The [facility] HospitalComment on above:Performed By: #### ACET, SALYC #### [facility] [address] [place] [address] Dr. Ibis Magallanes #0.5 103/ulNormal0.3-0.8The [facility] HospitalComment on above:Performed By: #### ACET, SALYC #### [facility] [address] [place] [address] Dr. Ibis Barbaocytes/100 WBC (Bld)8.2 %Normal1.7-12.0The [facility] Comment on above:Performed By: #### ACET, SALYC #### [facility] [address] [place] [address] Dr. Ibis Schultz #3.4 103/ulNormal1.4-6.5The [facility] HospitalComment on above:Performed By: #### ACET, SALYC #### [facility] [address] [place] [address] Dr. Ibis Hiutrophils/100 WBC (Bld)60.7 %Xglbdv75.0-75.0The [facility] HospitalComment on above:Performed By: #### ACET, SALYC #### [facility] [address] [place] [address] Dr. Ibis Olsenlet mean volume (Bld) [Entitic vol]9.9 fLNormal9.5-13.5The [facility] HospitalComment on above:Performed By: #### ACET, SALYC #### [facility] [address] [place] [address] Dr. Ibis JimenezPLT222 103/vyMrrkwe498-356Qdj [facility] HospitalComment on above: Performed By: #### ACET, SALYC #### [facility] [address] [place] [address] Dr. Ibis JimenezRBC3.99 106/ulCritically low4.20-5.40The [facility] HospitalComment on above:Performed By: #### ACET, SALYC #### [facility] Laboratory [address] [place] [address] Dr. Ibis JmienezWBC5.6 103/ulNormal4.0-11.0The [facility] Lutheran HospitalComment on above: Performed By: #### ACET, SALYC #### [facility] [address] [address] [address] Ibis JimenezPROF CHEM 8 (BAS METB)on [id number] gap [Moles/Vol]10.5 mmol/LNormalThe [facility] HospitalComment on above:Performed By: #### BMP #### [facility] [address] [address] [address] Ibis JimenezCalcium [Mass/Vol]8.8 mg/dLNormal8.5-10.1[facility] Comment on above:Performed By: #### BMP #### [facility] [address] [address] [address] Ibis JimenezChloride [Moles/Vol]105 mmol/EFvgvjc18-498Rmw [facility] Comment on above:Performed By: #### BMP #### [facility] [address] [place] [address] Dr. Ibis JimenezCO2 [Moles/Vol]24.9 mmol/ONnjdel18.0-32.0[facility] Comment on above:Performed By: #### BMP #### [facility] [address] [address] [address] Ibis JimenezCreatinine [Mass/Vol]0.71 mg/dLNormal0.55-1.02The [facility] HospitalComment on above:Performed By: #### BMP #### [facility] [address] [address] [address] Ibis RojasGFR-AF GAMBIAN>60Normal>=60The [facility] Luther[facility] HospitalComment on above:Performed By: #### BMP #### [facility] [address] [address] [address] Ibis RojasGFR-NON AF GAMBIAN>60Normal>=60The [facility] HospitalComment on above:Performed By: #### BMP #### [facility] [address] [address] [address] Ibis JimenezGlucose [Mass/Vol]103 mg/hQFgglcq15-210Ydo [facility] Comment on above:Performed By: #### BMP #### [facility] [address] [address] [address] Ibis JimenezPotassium [Moles/Vol]3.4 mmol/LCritically low3.5-5.1[facility] HospitalComment on above:Performed By: #### BMP #### [facility] [address] [address] [address] Ibis JimenezSodium [Moles/Vol]137 mmol/HLyagau653-258Zck [facility] Comment on above:Performed By: #### BMP #### [facility] [address] [address] [address] Ibis JimenezUrea nitrogen [Mass/Vol]17.0 mg/dLNormal7.0-18.0[facility] HospitalComment on above:Performed By: #### BMP #### [facility] [address] [place] [address] Dr. Ibis Lama nitrogen/Creatinine [Mass ratio]23.9 mg/mgNormalThe [facility] HospitalComment on above:Performed By: #### BMP #### [facility] [address] [place] [address] Dr. Ibis JimenezBasic Metab w/rfx MGon 10-20-2021(cont.)[facility] Hospital - ColumbusComment on above:Result Comment: Average GFR for 20-29 years old: 116 mL/min/1.73sq m Chronic Kidney Disease: <60 mL/min/1.73sq m Kidney failure: <15 mL/min/1.73sq m eGFR calculated using average adult body mass. Additional eGFR calculator available at: http://www.[employer].com/multiple_crcl_2012.htmPerformed By: #### BMPX #### [facility] [address] [place], [place] [id number] Enhanced Environmental Operator: Shira Holden gap [Moles/Vol]10 mmol/LNormal9-17[facility] HospitalComment on above:Performed By: #### BMPX #### [facility] [address] [place] [address] Enhanced Environmental Operator: CLARK Holdenalcium [Mass/Vol]7.8 mg/dLLow8.6-10.4[facility] HospitalComment on above:Performed By: #### BMPX #### [address] [address] Enhanced Environmental Operator: CLARK Holdenhloride [Moles/Vol]109 mmol/QRele27-268TejaiMercy Health Allen HospitalComment on above:Performed By: #### BMPX #### [address] [address] Enhanced Environmental Operator: Tavon Nicole MDCO2 [Moles/Vol]20 mmol/VCadgiv65-41ShgxhMercy Health Allen HospitalComment on above:Performed By: #### BMPX #### [address] [address] Enhanced Environmental Operator: CLARK Holdenreatinine [Mass/Vol]0.45 mg/dLLow0.50-0.90[facility] HospitalComment on above:Performed By: #### BMPX #### [address] [address] Enhanced Environmental Operator: Tavon Nicole MDGFR, Amer>60Normal>60[facility] HospitalComment on above:Performed By: #### BMPX #### [address] [address] Enhanced Environmental Operator: Tavon Nicole MDGFR,non Amer>60Normal>60[facility] HospitalComment on above:Performed By: #### BMPX #### [address] [address] Enhanced Environmental Operator: Tavon Nicole MDGlucose [Mass/Vol]84 mg/cKOuvnuu77-89JhdegPatton State HospitalComment on above:Performed By: #### BMPX #### [facility] [address] [place] [address] Enhanced Environmental Operator: MAGED Holdenotassium [Moles/Vol]4.1 mmol/LNormal3.7-5.3 [facility] HospitalComment on above:Result Comment: SPECIMEN SLIGHTLY HEMOLYZED, RESULTS MAY BE ADVERSELY AFFECTED.Performed By: #### BMPX #### [facility] [address] [place] [address] Enhanced Environmental Operator: ALEX Holdenodium [Moles/Vol]139 mmol/TDkdfys626-831YjoboMercy Health Allen HospitalComment on above:Performed By: #### BMPX #### [facility] [address] [place] [address] Enhanced Environmental Operator: Tavon Nicole MDUrea nitrogen [Mass/Vol]8 mg/dLNormal6-20[facility] HospitalComment on above:Performed By: #### BMPX #### [facility] [address] [place] [address] Enhanced Environmental Operator: Tavon Nicole MDBahazard arh regional medical center Metabolic Panel w/ Reflex to MGon [id number] gap [Moles/Vol]10 mmol/L9 - 17 mmol/LBON [facility] Calcium [Mass/Vol]7.8 mg/dLLow8.6 - 10.4 mg/dLBON SECMESCALERO [facility]ICE [facility] [employer] HEALTHChloride [Moles/Vol]109 mmol/LHigh98 - 107 mmol/LBON SECOURS [employer] HEALTHCO2 [Moles/Vol] 20 mmol/L20 - 31 mmol/LBON SEC[facility]RS [facility] Fits.meCreatinine [Mass/Vol]0.45 mg/dL Low0.5 - 0.9 mg/dLBON SECThe Hut Group HEALTHGFR >6060 - PINF mL/minBON SECOURS [employer] HEALTHGFR Non->6060 - PINF mL/minBON SECZIO StudiosGFR/1.73 sq M.predicted MDRD (S/P/Bld) [Vol rate/Area][facility] MEDICAL CENTERComment on above:Average GFR for 20-29 years old: 116 mL/min/1.73sq m Chronic Kidney Disease: <60 mL/min/1.73sq m Kidney failure: <15 mL/min/1.73sq m eGFR calculated using average adult body mass. Additional eGFR calculator available at: http://www.[employer]/multiple_crcl_2012.htm Glucose [Mass/Vol]84 mg/dL70 - 99 mg/dLBON [facility] MEDICAL CENTERInterpretation and review of laboratory resultsAbnormalBON [facility] MEDICAL CENTERPotassium [Moles/Vol]4.1 mmol/L3.7 - 5.3 mmol/LBON [facility] MEDICAL CENTERComment on above: SPECIMEN SLIGHTLY HEMOLYZED, RESULTS MAY BE ADVERSELY AFFECTED.Sodium [Moles/Vol]139 mmol/L135 - 144 mmol/LBON [facility] MEDICAL CENTERUrea nitrogen (BldV) [Mass/Vol]8 mg/dL6 - 20 mg/dLBON SECAURORA HEALTH CARE HEALTH CENTERCBC with Auto Differentialon [id number] Eos #0.15[facility]OSPITALAbsolute Immature GranulocyteBON SECOHIOHEALTH GRADY MEMORIAL HOSPITALAbsolute Lymph #1.48 [facility] HOSPITALAbsolute Mckean #0.28[facility] HOSPITALBasophils (Bld) [#/Vol]0.03 10*3/uLBON SECOHIOHEALTH GRADY MEMORIAL HOSPITALBasophils/100 WBC (Bld)1 %0 - 2 %[facility] HOSPITALEosinophils/100 WBC (Bld)3 %1 - 4 %[facility] HOSPITALHematocrit (Bld) [Volume fraction]35.5 %Low36.3 - 47.1 %[facility] HOSPITALHemoglobin (Bld) [Mass/Vol]11.3 g/dLLow11.9 - 15.1 g/dLBON SECOHIOHEALTH GRADY MEMORIAL HOSPITALImmature granulocytes/100 WBC (Bld)0 %0[facility] Interpretation and review of laboratory resultsAbnormalSENTARA [facility] Lymphocytes/100 WBC (Bld)34 %24 - 43 %[facility] MED[facility] CENTERMCH (RBC) [Entitic mass]27.9 pg25.2 - 33.5 pgBON KETTERING HEALTH MAIN CAMPUSHC (RBC) [Mass/Vol]31.8 g/dL28.4 - 34.8 g/dLBON SECKINDRED HEALTHCAREV (RBC) [Entitic vol]87.7 fL82.6 - 102.9 fLSENTARA MARTHA JEFFERSON HOSPITALMonocytes/100 WBC (Bld)6 %3 - 12 %[facility] HOSPITALNRBC Automated0.00.0 per 100 WBCSENTARA MARTHA JEFFERSON HOSPITALPlatelet distribution width (Bld) [Ratio]12.9 %11.8 - 14.4 %[facility] Platelets (Bld) [#/Vol]See Reflexed IPF ResultSENTARA MARTHA JEFFERSON HOSPITALRBC (Bld) [#/Vol]4.05 10*6/uL3.95 - 5.11 m/uLSENTARA MARTHA JEFFERSON HOSPITALSegmented neutrophils/100 WBC (Bld)55 %36 - 65 %[facility] JEFF[facility] HOSPITALSegs Absolute2.42 [facility] CENTERWBC (Bld) [#/Vol]4.4 10*3/uLBON [facility]ATION HOSPITALCBC with Diffon [id number]. Basophil0.03 k/uLNormal 0.00-0.20[facility] HospitalComment on above:Performed By: #### CDP, IPF #### [facility] [address] [place] [address] Enhanced Environmental Operator: Wendy Holden.Imm.Granulocyte<0.97Pogiqo1.00-0.30[facility] HospitalComment on above:Performed By: #### CDP, IPF #### [facility] [address] [place] [address] Enhanced Environmental Operator: Wendy Holden.Neutrophil (Seg)2.42 k/uLNormal1.50-8.10 [facility] HospitalComment on above:Performed By: #### CDP, IPF #### [facility] [address] [place] [address] Enhanced Environmental Operator: Tavon Nicole MDBasophils/100 WBC (Bld)1 %Normal0-2MKaiser Foundation HospitalComment on above:Performed By: #### CDP, IPF #### [address] [address] Enhanced Environmental Operator: Tavon Nicole MDEosinophils (Bld) [#/Vol]0.15 10*3/uLNormal 0.00-0.44[facility] HospitalComment on above:Performed By: #### CDP, IPF #### [address] [address] Enhanced Environmental Operator: Tavon Nicole MDEosinophils/100 WBC (Bld)3 %Normal1-4[facility] HospitalComment on above:Performed By: #### CDP, IPF #### [address] [address] Enhanced Environmental Operator: Tavon Nicole MDImmature granulocytes/100 WBC (Bld)0 %Normal0 [facility] HospitalComment on above:Performed By: #### CDP, IPF #### [address] [address] Enhanced Environmental Operator: Antonia Holdenmphocytes (Bld) [#/Vol]1.48 10*3/uLNormal 1.10-3.70[facility] HospitalComment on above:Performed By: #### CDP, IPF #### [address] [address] Enhanced Environmental Operator: Antonia Holdenmphocytes/100 WBC (Bld)34 %Gxpmve31-81BxrfoMercy Health Allen HospitalComment on above:Performed By: #### CDP, IPF #### [address] [address] Enhanced Environmental Operator: JUNAID Holdenonocytes (Bld) [#/Vol]0.28 10*3/uLNormal 0.10-1.20[facility] HospitalComment on above:Performed By: #### CDP, IPF #### [address] [address] Enhanced Environmental Operator: JUNAID Holdenonocytes/100 WBC (Bld)6 %Normal3-12[facility] HospitalComment on above:Performed By: #### CDP, IPF #### [address] [address] Enhanced Environmental Operator: Tavon Nicole MDNeutrophil (Seg)55 %Mcaukn96-49JuyvdMercy Health Allen HospitalComment on above:Performed By: #### CDP, IPF #### [address] [address] Enhanced Environmental Operator: Tavon Nicole MDErythrocyte distribution width (RBC) [Ratio]12.9 %Qsbzmq52.8-14.4[facility] HospitalComment on above:Performed By: #### GAMALIEL, IPF #### [address] [address] Enhanced Environmental Operator: Tavon Nicole MDHematocrit (Bld) [Volume fraction]35.5 %Low 36.3-47.1MKaiser Foundation HospitalComment on above:Performed By: #### CDP, IPF #### [address] [address] Enhanced Environmental Operator: Tavon Nicole MDHemoglobin (Bld) [Mass/Vol]11.3 g/dLLow11.9-15.1 [facility] HospitalComment on above:Performed By: #### CDP, IPF #### [address] [address] Enhanced Environmental Operator: JUNAID HoldenCH (RBC) [Entitic mass]27.9 gxFamnmz93.2-33.5 [facility] HospitalComment on above:Performed By: #### CDP, IPF #### [address] [address] Enhanced Environmental Operator: JUNAID HoldenCHC (RBC) [Mass/Vol]31.8 g/iIHmdisl96.4-34.8 [facility] HospitalComment on above:Performed By: #### CDP, IPF #### [address] [address] Enhanced Environmental Operator: JUNAID HoldenCV (RBC) [Entitic vol]87.7 cUSpkkov59.6-102.9 [facility] HospitalComment on above:Performed By: #### CDP, IPF #### [address] [address] Enhanced Environmental Operator: Tavon Nicole MDNRBC Automated0.0 per 100 WBCNormal0.0[facility] HospitalComment on above:Performed By: #### CDP, IPF #### [address] [address] Enhanced Environmental Operator: Kaylee Holdentelet CountSee Reflexed IPF ResultNormal 138-453Mer[facility] HospitalComment on above:Performed By: #### CDP, IPF #### [address] [address] Enhanced Environmental Operator: FRANCISCO HoldenBC (Bld) [#/Vol]4.05 10*6/uLNormal3.95-5.11 [facility] HospitalComment on above:Performed By: #### CDP, IPF #### [address] [address] Enhanced Environmental Operator: JESSE HoldenBC (Bld) [#/Vol]4.4 10*3/uLNormal3.5-11.3[facility] CenterComment on above:Performed By: #### CDP, IPF #### [facility] [address] [place] [address] Enhanced Environmental Operator: JUSTIN Holden video monitoringon [id number] Owais, MD 10/20/2021 12:11 PM Referring physician: Chris Blanchard APRN Date:10/20/2021 Start Time:10/19/2021 @1258 End Time: 10/20/2021 @ 1200 Indication Patient with recurrent events Introduction This continuous video-EEG was acquired using a [employer] workstation at 256 samples/s. Electrodes were placed [...] Board Certified. Neurology Board Certified. Electronically Signed [employer] Phone: eeg video monitoringOrdered By: Raiza Land on [id number] ? Phone: Immature Platelet Fractionon [id number], FluorescencePlatelet clumps present, count appears adequate.LeakyPLT, Immature Fract.on [id number], Fluoresc.Platelet clumps present, count appears adequate.Zaemdi000-312WzviwMercy Health Allen HospitalComment on above:Performed By: #### CDP, IPF #### [address] [address] Enhanced Environmental Operator: MAGED HoldenROLACTINon 89-97-0091Dbplcrjtf66.7 ng/mL Critically high4.8-23.3TDetwiler Memorial HospitalComment on above:Performed By: #### CVDTBH #### [facility] [address] [place], [place] [address] Dr. Ibis Nelson [phone] distribution width (RBC) [Ratio]12.9 %Siznlb74.8-14.4[facility] HospitalComment on above:Performed By: #### TROPI, LACTIC, CMPX, CBC #### [address] [address] Enhanced Environmental Operator: Tavon Nicole MDHematocrit (Bld) [Volume fraction]31.5 %Low 36.3-47.1MKaiser Foundation HospitalComment on above:Performed By: #### TROPI, LACTIC, CMPX, CBC #### [facility] [employer] [address] [place] [address] Enhanced Environmental Operator: Tavon Nicole MDHemoglobin (Bld) [Mass/Vol]10.8 g/dLLow11.9-15.1 [facility] HospitalComment on above:Performed By: #### TROPI, LACTIC, CMPX, CBC #### [facility] [employer] [address] [place] [address] Enhanced Environmental Operator: JUNAID HoldenCH (RBC) [Entitic mass]29.1 rgSqcnrt35.2-33.5 [facility] HospitalComment on above:Performed By: #### TROPI, LACTIC, CMPX, CBC #### [address] [address] Enhanced Environmental Operator: JUNAID HoldenCHC (RBC) [Mass/Vol]34.3 g/aCCrigae22.4-34.8 [facility] HospitalComment on above:Performed By: #### TROPI, LACTIC, CMPX, CBC #### [address] [address] Enhanced Environmental Operator: JUNAID HoldenCV (RBC) [Entitic vol]84.9 kJQffcge02.6-102.9 [facility] HospitalComment on above:Performed By: #### TROPI, LACTIC, CMPX, CBC #### [address] [address] Enhanced Environmental Operator: NIKO HoldenBC Automated0.0 per 100 WBCNormal0.0[facility] HospitalComment on above:Performed By: #### TROPI, LACTIC, CMPX, CBC #### [address] [address] Enhanced Environmental Operator: Greta Holden mean volume (Bld) [Entitic vol]9.8 fL Normal8.1-13.5[facility] HospitalComment on above:Performed By: #### TROPI, LACTIC, CMPX, CBC #### [address] [address] Enhanced Environmental Operator: Kaylee Holdenteyanni (Bld) [#/Vol]281 10*3/cJDyvtvm430-404 [facility] HospitalComment on above:Performed By: #### TROPI, LACTIC, CMPX, CBC #### [address] [address] Enhanced Environmental Operator: Tavon Nicole MDRBC (Bld) [#/Vol]3.71 10*6/uLLow3.95-5.11[facility] HospitalComment on above:Performed By: #### TROPI, LACTIC, CMPX, CBC #### [facility] [address], [place] [id number] Enhanced Environmental Operator: Tavon Nicole MDWBC (Bld) [#/Vol]5.0 10*3/uLNormal3.5-11.3[facility] Medical CenterComment on above:Performed By: #### TROPI, LACTIC, CMPX, CBC #### [facility] [address], [place] [address] Enhanced Environmental Operator: Tavon Nicole MDHematocrit (Bld) [Volume fraction]31.5 %Low36.3 - 47.1 %[facility] HOSPITALHemoglobin (Bld) [Mass/Vol]10.8 g/dLLow11.9 - 15.1 g/dLBON LAKEHE[facility]ACHWOOD MEDICAL CENTERInterpretation and review of laboratory results AbnormalBON KETTERING [facility]ALTH MAIN CAMPUSH (RBC) [Entitic mass]29.1 pg25.2 - 33.5 pgBON KETTERING HEALTH MAIN CAMPUSHC (RBC) [Mass/Vol]34.3 g/dL28.4 - 34.8 g/dLBON SECKINDRED HEALTHCAREV (RBC) [Entitic vol]84.9 fL82.6 - 102.9 fLSENTARA MARTHA JEFFERSON HOSPITALNRBC Automated0.00.0 per 100 WBCBON LAKEHEALTH BEACHWOOD MEDICAL CENTERPlatelet distribution width (Bld) [Ratio]12.9 %11.8 - 14.4 %[facility] Platelet mean volume (Bld) [Entitic vol]9.8 fL8.1 - 13.5 fLBON [facility]ITAL HEALTHPlatelets (Bld) [#/Vol]281 10*3/uLBON SECOHIOHEALTH GRADY MEMORIAL HOSPITALRBC (Bld) [#/Vol]3.71 10*6/uLLow3.95 - 5.11 m/uLBON SECOHIOHEALTH GRADY MEMORIAL HOSPITALWBC (Bld) [#/Vol] 5.0 10*3/uLBON [facility] HEALTHBON SECOHIOHEALTH GRADY MEMORIAL HOSPITALCBC AUTO DIFFon [id number] #0.2 103/ulNormal0.0-0.7The [facility] HospitalComment on above: Performed By: #### AMM #### [facility] [address] [place] [address] Dr. Ibis Rojasosinophils/100 WBC (Bld)3.9 %Normal0.9-7.0[facility] Comment on above:Performed By: #### AMM #### [facility] [address] [place] [address] Dr. Ibis Rojasrythrocyte distribution width (RBC) [Ratio]13.1 %Rtzuhm83.0-15.0 The [facility] HospitalComment on above:Performed By: #### AMM #### [facility] [address] [place] [address] Dr. Ibis JimenezHematocrit (Bld) [Volume fraction]33.4 %Critically low36.0-48.0 The [facility] HospitalComment on above:Performed By: #### AMM #### [facility] [address] [place] [address] Dr. Ibis JimenezHemoglobin (Bld) [Mass/Vol]11.1 g/dLCritically low12.0-16.0The [facility] HospitalComment on above:Performed By: #### AMM #### [facility] [address] [place] [address] Dr. Ibis VuongMPH #1.2 103/ulNormal1.2-3.8The [facility] HospitalComment on above:Performed By: #### AMM #### [facility] [address] [place] [address] Dr. Ibis JimenezLymphocytes/100 WBC (Bld)25.9 %Zhvyll25.5-60.0The [facility] HospitalComment on above:Performed By: #### AMM #### [facility] [address] [place] [address] Dr. Ibis JimenezMCHC (RBC) [Mass/Vol]33.2 g/cMKxmxhd16.9-35.2The [facility] HospitalComment on above:Performed By: #### AMM #### [facility] [address] [address] [address] Ibis Dan (RBC) [Entitic vol]85.9 fQIowuhz53.0-99.0The [facility] HospitalComment on above:Performed By: #### AMM #### [facility] [address] [place] [address] Dr. Ibis Barbaocytes/100 WBC (Bld)7.7 %Normal1.7-12.0[facility] Comment on above:Performed By: #### AMM #### [facility] [address] [place] [address] Dr. Ibis Schultz #2.9 103/ulNormal1.4-6.5The [facility] HospitalComment on above:Performed By: #### AMM #### [facility] [address] [place] [address] Dr. Ibis Hiutrophils/100 WBC (Bld)61.5 %Himjsz52.0-75.0The [facility] HospitalComment on above:Performed By: #### AMM #### [facility] [address] [place] [address] Dr. Ibis JimenezPLT264 103/tmRyeolt849-101Ayr [facility] HospitalComment on above: Performed By: #### AMM #### [facility] [address] [place] [address] Dr. Ibis JimenezRBC3.89 106/ulCritically low4.20-5.40The [facility] HospitalComment on above:Performed By: #### AMM #### [facility] [address] [place] [address] Dr. Ibis JimenezWBC4.7 103/ulNormal4.0-11.0The [facility]icothe Hospitalment on above: Performed By: #### AMM #### [facility] [address] [place] [address] Dr. Ibis Escamilla #0.0 103/ulNormal0.0-0.1The [facility]jandra HospitalComment on above:Performed By: #### AMM #### [facility] [address] [place] [address] Dr. Ibis JimenezPerformed By: #### CVDTBH #### [facility] [address] [place] [address] Dr. Ibis JimenezBasophils/100 WBC (Bld)0.6 %Normal0.2-2.0[facility] Comment on above:Performed By: #### AMM #### [facility] [address] [place] [address] Dr. Ibis JimenezPerformed By: #### CVDTBH #### [facility] [address] [place] [address] Dr. Ibis Acevedo #0.3 103/ulNormal0.0-0.7The [facility] HospitalComment on above: Performed By: #### CVDTBH #### [facility] [address] [place] [address] Dr. Ibis Rojasosinophils/100 WBC (Bld)5.0 %Normal0.9-7.0[facility] Comment on above:Performed By: #### CVDTBH #### [facility] [address] [place] [address] Dr. Ibis Rojasrythrocyte distribution width (RBC) [Ratio]12.8 %Dbvmjx67.0-15.0 The [facility] HospitalComment on above:Performed By: #### CVDTBH #### [facility] [address] [place] [address] Dr. Ibis JimenezHematocrit (Bld) [Volume fraction]38.0 %Vkhtjv68.0-48.0[facility] HospitalComment on above:Performed By: #### CVDTBH #### [facility] [address] [place] [address] Dr. Ibis JimenezHemoglobin (Bld) [Mass/Vol]12.7 g/cQVxrtzs42.0-16.0The [facility] HospitalComment on above:Performed By: #### CVDTBH #### [facility] [address] [place], [place] [address] Dr. Ibis Soto #0.02 10e3/ulNormal0.00-0.03The [facility] HospitalComment on above:Performed By: #### AMM #### [facility] [address] [place] [address] Dr. Ibis Cortesformed By: #### CVDTBH #### [facility] [address] [place] [address] Dr. Ibis Soto %0.4 %Normal0.0-0.5The [facility] HospitalComment on above: Performed By: #### AMM #### [facility] [address] [place] [address] Dr. Ibis Cortesformed By: #### CVDTBH #### [facility] [address] [place] [address] Dr. Ibis Monsalve #1.7 103/ulNormal1.2-3.8The [facility] HospitalComment on above:Performed By: #### CVDTBH #### [facility] [address] [place] [address] Dr. Ibis Brennerhocytes/100 WBC (Bld)30.7 %Vrkxsj67.5-60.0The [facility] on above:Performed By: #### CVDTBH #### [facility] [address] [place] [address] Dr. Ibis NewtonUAL DIFF REQNONormalThe [facility] HospitalComment on above: Performed By: #### AMM #### [facility] [address] [place] [address] Dr. Ibis Cortesformed By: #### CVDTBH #### [facility] [facility] [address] [place] [address] Dr. Ibis Irby (RBC) [Entitic mass]28.5 jnAtbhbh19.7-34.0The [facility] Luther[facility] HospitalComment on above:Performed By: #### AMM #### [facility] [address] [place] [address] Dr. Ibis Cortesformed By: #### CVDTBH #### [facility] [address] [place] [address] Dr. Ibis Frank (RBC) [Mass/Vol]33.4 g/kTRnlfes51.9-35.2The [facility] HospitalComment on above:Performed By: #### CVDTBH #### [facility] [address] [place] [address] Dr. Ibis Frank (RBC) [Entitic vol]85.2 vNWvmwmn87.0-99.0The [facility] HospitalComment on above:Performed By: #### CVDTBH #### [facility] [address] [place] [address] Dr. bIis Magallanes #0.4 103/ulNormal0.3-0.8The [facility] HospitalComment on above:Performed By: #### AMM #### [facility] [address] [place] [address] Dr. Ibis JimenezPerformed By: #### CVDTBH #### [facility] [address] [place] [address] Dr. Ibis Barbaocytes/100 WBC (Bld)8.1 %Normal1.7-12.0[facility] Comment on above:Performed By: #### CVDTBH #### [facility] [address] [place] [address] Dr. Ibis Schultz #3.0 103/ulNormal1.4-6.5The [facility] HospitalComment on above:Performed By: #### CVDTBH #### [facility] [address] [place] [address] Dr. Ibis Hiutrophils/100 WBC (Bld)55.2 %Zbcnql35.0-75.0The [facility] HospitalComment on above:Performed By: #### CVDTBH #### [facility] [address] [place] [address] Dr. Ibis Olsenlet mean volume (Bld) [Entitic vol]9.5 fLNormal9.5-13.5The [facility] HospitalComment on above:Performed By: #### AMM #### [facility] [address] [place] [address] Dr. Ibis JimenezPerformed By: #### CVDTBH #### [facility] [address] [place] [address] Dr. Ibis JimenezPLT343 103/exGofosd479-031Ppk [facility] HospitalComment on above: Performed By: #### CVDTBH #### [facility] [address] [place] [address] Dr. Ibis JimenezRBC4.46 106/ulNormal4.20-5.40The [facility] HospitalComment on above:Performed By: #### CVDTBH #### [facility] [address] [place] [address] Dr. Ibis JimenezWBC5.4 103/ulNormal4.0-11.0The [facility] HospitalComment on above: Performed By: #### CVDTBH #### [facility] [address] [place] [address] Dr. Ibis JimenezCT HEAD WO CONon [id number] HEAD WO CONEXAMINATION: CT HEAD WO CON [...] Electronically authenticated by: LOPEZ REYNOLDS Date: 2021-10-19 07:31[facility] HospitalCom Metabolic Pr/rfx MGon 10-19-2021(cont.)NormalMercy Orange Coast Memorial Medical CenterComment on above:Result Comment: Average GFR for 20-29 years old: 116 mL/min/1.73sq m Chronic Kidney Disease: <60 mL/min/1.73sq m Kidney failure: <15 mL/min/1.73sq m eGFR calculated using average adult body mass. Additional eGFR calculator available at: http://www.BeOnDesk/multiple_crcl_2012.htmPerformed By: #### TROPI, LACTIC, CMPX, CBC #### [place] [address] Enhanced Environmental Operator: Tavon Nicole MDAlbumin [Mass/Vol]3.5 g/dLNormal3.5-5.2MKaiser Foundation HospitalComment on above:Performed By: #### TROPI, LACTIC, CMPX, CBC #### [place] [address] Enhanced Environmental Operator: Tavon Nicole MDAlbumin/Glob Ratio1.9Iooccz2.0-2.5[facility] HospitalComment on above:Performed By: #### TROPI, LACTIC, CMPX, CBC #### [place] [address] Enhanced Environmental Operator: Tavon Nicole MDAlkaline Phos69 U/RTcdbkp53-542KsbeaMercy Health Allen HospitalComment on above:Performed By: #### TROPI, LACTIC, CMPX, CBC #### [place] [address] Enhanced Environmental Operator: Tavon Nicole MDALT [Catalytic activity/Vol]15 U/LNormal5-33 [facility] HospitalComment on above:Performed By: #### TROPI, LACTIC, CMPX, CBC #### [place] [address] Enhanced Environmental Operator: Tavon Nicole MDAnion gap [Moles/Vol]13 mmol/LNormal9-17[facility] HospitalComment on above:Performed By: #### TROPI, LACTIC, CMPX, CBC #### [facility] [address] [place] [address] Enhanced Environmental Operator: Tavon Nicole MDAST [Catalytic activity/Vol]12 U/LNormal<32[facility] HospitalComment on above:Performed By: #### TROPI, LACTIC, CMPX, CBC #### [address] [address] Enhanced Environmental Operator: Tavon Nicole MDBilirubin [Mass/Vol]0.24 mg/dLLow0.3-1.2MKaiser Foundation HospitalComment on above:Performed By: #### TROPI, LACTIC, CMPX, CBC #### [address] [address] Enhanced Environmental Operator: Tavon Nicole MDCalcium [Mass/Vol]8.1 mg/dLLow8.6-10.4[facility] HospitalComment on above:Performed By: #### TROPI, LACTIC, CMPX, CBC #### [address] [address] Enhanced Environmental Operator: Tavon Nicole MDChloride [Moles/Vol]107 mmol/VExdnze86-513LdgfuMercy Health Allen HospitalComment on above:Performed By: #### TROPI, LACTIC, CMPX, CBC #### [address] [address] Enhanced Environmental Operator: Tavon Nicole MDCO2 [Moles/Vol]19 mmol/KMzo51-04UlpmnMercy Health Allen HospitalComment on above:Performed By: #### TROPI, LACTIC, CMPX, CBC #### [address] [address] Enhanced Environmental Operator: Tavon Nicole MDCreatinine [Mass/Vol]0.53 mg/dLNormal0.50-0.90 [facility] HospitalComment on above:Performed By: #### TROPI, LACTIC, CMPX, CBC #### [facility] [address] [place] [address] Enhanced Environmental Operator: Tavon Nicole MDGFR, Amer>60Normal>60[facility] Allen HospitalComment on above:Performed By: #### TROPI, LACTIC, CMPX, CBC #### [facility] [address] [place] [address] Enhanced Environmental Operator: DEJA Holden,non Amer>60Normal>60MerWest Los Angeles Memorial HospitalComment on above:Performed By: #### TROPI, LACTIC, CMPX, CBC #### [facility] [address] [place] [address] Enhanced Environmental Operator: Tavon Nicole MDGlucose [Mass/Vol]81 mg/xEQlhjjt78-60LswajKaiser Foundation HospitalComment on above:Performed By: #### TROPI, LACTIC, CMPX, CBC #### [address] [address] Enhanced Environmental Operator: Tavon Nicole MDPotassium [Moles/Vol]3.9 mmol/LNormal3.7-5.3 [facility] HospitalComment on above:Performed By: #### TROPI, LACTIC, CMPX, CBC #### [address] [address] Enhanced Environmental Operator: Tavon Nicole MDProtein [Mass/Vol]6.0 g/dLLow6.4-8.3MKaiser Foundation HospitalComment on above:Performed By: #### TROPI, LACTIC, CMPX, CBC #### [address] [address] Enhanced Environmental Operator: Tavon Nicole MDSodium [Moles/Vol]139 mmol/DLbxgbl098-916OoeyyMercy Health Allen HospitalComment on above:Performed By: #### TROPI, LACTIC, CMPX, CBC #### [facility] [address] [place] [address] Enhanced Environmental Operator: Tavon Nicole MDUrea nitrogen [Mass/Vol]10 mg/dLNormal6-20[facility] HospitalComment on above:Performed By: #### TROPI, LACTIC, CMPX, CBC #### [facility] [address] [place], [place] [id number] Enhanced Environmental Operator: CLARK Holdenomprehensive Metabolic Panel w/ Reflex to MGon [id number] [Mass/Vol]3.5 g/dL3.5 - 5.2 g/dLBON SECOURS MERCY [...] MERCY HEALTHGFR/1.73 sq M.predicted MDRD (S/P/Bld) [Vol rate/Area][facility] on above:Average GFR for 20-29 years old: 116 mL/min/1.73sq m Chronic Kidney Disease: <60 mL/min/1.73sq m Kidney failure: <15 mL/min/1.73sq m eGFR calculated using average adult body mass. Additional eGFR calculator available at: http://www.BeOnDesk/[facility] Lab_crcl_2012.htm Glucose [Mass/Vol]81 mg/dL70 - 99 mg/dLBON LAKEHEALTH BEACHWOOD MEDICAL CENTERInterpretation and review of laboratory resultsAbnormalBON LAKEHEALTH BEACHWOOD MEDICAL CENTERPotassium [Moles/Vol]3.9 mmol/L3.7 - 5.3 mmol/LBON LAKEHEALTH BEACHWOOD MEDICAL CENTERSodium [Moles/Vol] 139 mmol/L135 - 144 mmol/LBON LAKEHEALTH BEACHWOOD MEDICAL CENTERUrea nitrogen (BldV) [Mass/Vol]10 mg/dL6 - 20 mg/dLBON [facility] Covid-19 PCR (CVDTBH)on 09-30-0072ARWQ-CoV-2 (COVID-19) RNA SAURABH+probe Ql (Unsp spec)Not detectedNormalNOT DETECTEDThe [facility] on above:Result Comment: When diagnostic testing is [...] for this test is supported by the [place] of Health and Human Service's declaration that [...] longer be used).Performed By: #### CVDTBH #### [facility] [address] [place] [address] Dr. Ibis Cristina SCREEN RAPID (URINE)on [id number]M [facility] on above:Performed By: #### BMP #### [facility] [address] [place] [address] Dr. Ibis JimenezBARPositiveAbnormalNEGBethesda North Hospital on above: Performed By: #### BMP #### [facility] [address] [place] [address] Dr. Ibis JimenezBUPNegativeNormalNEGBethesda North Hospital on above: Performed By: #### BMP #### [facility] [address] [place] [address] Dr. Ibis JimenezBZOPositivePeacehealth St. Joseph Medical CenterNEGBethesda North Hospital on above: Performed By: #### BMP #### [facility] [address] [place] [address] Dr. Ibis DanielCNegativeNormalNEGBethesda North Hospital on above: Performed By: #### BMP #### [facility] [address] [place] [address] Dr. Ibis YanFisher-Titus Medical CenterComuniversity of [facility] health on above: Result Comment: AMP (Amphetamine): 500ng/mL, BAR (Barbituates): 200 ng/mL, BZO (Benzodiazepines): 150 ng/mL, BUP (Buprenorphine): 10 ng/mL, SEMAJ (Cocaine): 150 ng/mL, mAMP (Methamphetamine): 500 ng/mL, MTD (Methadone): 200 ng/mL, OPI (Opiates): 100 ng/mL, OXY (Oxycodone): 100 ng/mL, PCP (Phencyclidine): 25 ng/mL, PPX (Propoxyphene): 300 ng/mL, THC (Cannabinoids): 50 ng/mL, TCA (Trycyclic Antidepressants): 300 ng/mLPerformed By: #### BMP #### [facility] [address] [place] [address] Dr. Yilan ChangDRUG CUT HEADERDRUG CLASS TEST SYSTEM CUT-OFF CONCENTRATIONS ARE FOLLOWS:NormalThe [facility] HospitalComment on above:Performed By: #### BMP #### [facility] [address] [place] [address] Dr. Ibis JimenezmAMPNegativeNormalNEGATIVEMary Rutan HospitalComuniversity of [place] health on above: Performed By: #### BMP #### [facility] [address] [address] [address] Ibis JimenezMTDNegativeNormalNEGATIVEMary Rutan HospitalComuniversity of [facility] on above: Performed By: #### BMP #### [facility] [address] [address] [address] Ibis JimenezOPIPositiveAbnormalNEGATIVEMary Rutan HospitalComuniversity of [facility] on above: Performed By: #### BMP #### [facility] [address] [place] [address] Dr. Ibis JimenezOXYPositiveAbnormalNEGATIVEMary Rutan HospitalComuniversity of [facility] on above: Performed By: #### BMP #### [facility] [address] [place] [address] Dr. Ibis JimenezPCPNegativeNormalNEGATIVEMary Rutan HospitalComuniversity of [facility] on above: Performed By: #### BMP #### [facility] [address] [place] [address] Dr. Ibis JimenezPPXNegativeNormalNEGATIVEPremier Health on above: Performed By: #### BMP #### [facility] [address] [place] [address] Dr. Ibis JimenezTCANegativeNormalNEGATIVEMary Rutan HospitalComuniversity of [facility] on above: Performed By: #### BMP #### [facility] [address] [address] [address] Ibis JimenezTHCNegativeNormalNEGATIVEPremier Health on above: Performed By: #### BMP #### [facility] [address] [place] [address] Dr. Baumann ChangER URINE PROFILEon 61-04-5762Wpfraaecr Ql (U)NegativeNormal NEGATIVERiverview Health Institute HospitalComment on above:Performed By: #### BMP #### [facility] [address] [address] [address] Ibis JimenezClarity (U)CLEARNormalCLEARRiverview Health Institute HospitalComment on above: Performed By: #### BMP #### [facility] [address] [address] [address] Ibis JimenezColor (U)YELLOWNormalYELLOWRiverview Health Institute HospitalComment on above: Performed By: #### BMP #### [facility] [address] [address] [address] Ibis Chang micrscopic examination will be performed if indicated. NormalThe [facility]enton HospitalComment on above:Performed By: #### BMP #### [facility] [address] [address] [address] Ibis JimenezGlucose Ql (U)NegativeNormalNEGATIVERiverview Health Institute HospitalComment on above:Performed By: #### BMP #### [facility] [address] [address] [address] Ibis JimenezHemoglobin Ql (U)TRACE-INTACTAbnormalNEGATIVEMary Rutan HospitalComment on above:Performed By: #### BMP #### [facility] [address] [address] [address] Ibis JimenezKetones Ql (U)NegativeNormalNEGATIVEMary Rutan HospitalComment on above:Performed By: #### BMP #### [facility] [address] [address] [address] Ibis JimenezLEUKOCYTESNegativeNormalNEGATIVEMary Rutan HospitalComuniversity of [facility] health on above:Performed By: #### BMP #### [facility] [address] [address] [address] Ibis JimenezNitrite Ql (U)NegativeNormalNEGATIVEMary Rutan HospitalComment on above:Performed By: #### BMP #### [facility] [address] [address] [address] Ibis JimenezpH (U)5.5 [pH]Normal5-9Mary Rutan HospitalComment on above: Performed By: #### BMP #### [facility] [address] [address] [address] Ibis JimenezSPEC GRAVITY>=1.970Vagtxauu9.005-<=1.025The [facility] Comment on above:Performed By: #### BMP #### [facility] [address] [address] [address] Ibis Quintanilla PROTEINNegativeNormalNEGATIVE/ TRACEThe [facility] Comment on above:Performed By: #### BMP #### [facility] [address] [address] [address] Ibis Curtis MICRO INDINDICATEDNormalThSelect Medical Specialty Hospital - Cleveland-FairhillComment on above: Performed By: #### BMP #### [facility] [address] [place] [address] Dr. Ibis Lorenzbilinogen Qn (U)0.2 {Dinorah'U}/dLNormal0.2 - 1.0The [facility] HospitalComment on above:Performed By: #### BMP #### [facility] [address] [address] [address] Ibis JimenezLACTATE/LACTIC ACIDon 37-99-1705Dtuhkmc [Moles/Vol]1.2 mmol/L Normal0.4-1.9Mary Rutan HospitalComment on above:Performed By: #### AMM #### [facility] [address] [place] [address] Dr. Ibis JimenezLactic Acidon 38-01-3554Ptfjau Acid,Whole Bl0.9 mmol/LNormal 0.7-2.1[facility] Medical CenterComment on above:Performed By: #### TROPI, LACTIC, CMPX, CBC #### [facility] [employer] [facility] [place] [address] Enhanced Environmental Operator: Tavon Nicole MDLactic Acid, Whole Blood0.9 mmol/L0.7 - 2.1 mmol/LBON [facility] 78-32-9407Qnhojtsfw (Bld) [#/Vol]NegativeNormalNEGATIVEThe [facility] HospitalComment on above: Performed By: #### MONO #### [facility] [address] [address] [address] Ibis JimenezMRI BRAIN W WO CONTRASTon [id number] BRAIN W WO CONTRAST EXAMINATION: MRI OF [...] by: Carlos Marks DO 10/19/21 Final resultNormalMercy Orange Coast Memorial Medical CenterUnremarkable MR brain. [facility] RIS CONSOLIDATEDEXAMINATION: MRI OF THE BRAIN [...] soft tissues demonstrate no acute abnormality. [facility] Carlos Dumont DO - 10/19/2021 EXAMINATION: [...] no acute abnormality. IMPRESSION: Unremarkable MR brain. [employer] Phone: radiology Study observation (narrative)[employer] Phone: MRI BRAIN W WO CONTRASTOrdered By: Carlos Marks on [id number] ? Phone: PH VENOUS BLOODon [id number] JFHDEA32.6 mmHg Critically low40.0-52.0The [facility] HospitalComment on above:Performed By: #### BMP #### [facility] [address] [place] [address] Dr. Ibis JimenezpH VENOUS7.678Uwgvcu1.330-7.430The [facility] HospitalComment on above:Performed By: #### BMP #### [facility] [address] [place] [address] Dr. Ibis JimenezPROF CHEM 8 (BAS METB)on 48-60-3661Cpxff gap [Moles/Vol]11.9 mmol/LNormalThe [facility] HospitalComment on above:Performed By: #### MONO #### [facility] [address] [place] [address] Dr. Ibis JimenezCalcium [Mass/Vol]9.1 mg/dLNormal8.5-10.1[facility] Comment on above:Performed By: #### MONO #### [facility] [address] [place] [address] Dr. Ibis JimenezChloride [Moles/Vol]104 mmol/BVucuud96-056Syq [facility] Comment on above:Performed By: #### MONO #### [facility] [address] [place] [address] Dr. Ibis JimenezCO2 [Moles/Vol]26.7 mmol/HCdvgqh12.0-32.0[facility] Comment on above:Performed By: #### MONO #### [facility] [address] [place] [address] Dr. Ibis JimenezCreatinine [Mass/Vol]0.78 mg/dLNormal0.55-1.02The [facility] HospitalComment on above:Performed By: #### MONO #### [facility] [address] [place] [address] Dr. Ibis RojasGFR-AF GAMBIAN>60Normal>=60The [facility] HospitalComment on above:Performed By: #### MONO #### [facility] [address] [place] [address] Dr. Ibis RojasGFR-NON AF GAMBIAN>60Normal>=60Mary Rutan HospitalComment on above:Performed By: #### MONO #### [facility] [address] [address] [address] Ibis JimenezGlucose [Mass/Vol]96 mg/eOLianol19-293MotMary Rutan Hospital Comment on above:Performed By: #### MONO #### [facility] [address] [address] [address] Ibis JimenezPotassium [Moles/Vol]3.6 mmol/LNormal3.5-5.1[facility] Comment on above:Performed By: #### MONO #### [facility] [address] [address] [address] Ibis JimenezSodium [Moles/Vol]139 mmol/DYiyygf063-468Gpp [facility] Comment on above:Performed By: #### MONO #### [facility] [address] [address] [address] Ibis JimenezUrea nitrogen [Mass/Vol]14.0 mg/dLNormal7.0-18.0Mary Rut[facility] HospitalComment on above:Performed By: #### MONO #### [facility] [address] [address] [address] Ibis Lama nitrogen/Creatinine [Mass ratio]17.9 mg/mgNormalThe [facility] HospitalComment on above:Performed By: #### MONO #### [facility] [address] [address] [address] Ibis Wang 06-83-0689KBC2.389 uIU/mLNormal0.358-3.740Mary Rutan HospitalComment on above:Performed By: #### ACET, SALYC #### [facility] [address] [address] [address] Ibis Zacarias 93-38-0690Frrdzbov, High Sens<3Egtqrc8-59YlqhmMercy Health Allen HospitalComment on above:Result Comment: High Sensitivity Troponin values cannot be compared with other Troponin methodologies. Patients with high levels of Biotin oral intake (i.e >5mg/day) may have falsely decreased Troponin levels. Samples collected within 8 hours of biotin intake may require additional information for diagnosis.Performed By: #### TROPI, LACTIC, CMPX, CBC #### [facility] [address] [place] [address] Enhanced Environmental Operator: Geraldo Holden, High Sensitivityng/L0 - 14 ng/LBON [facility] on above: High Sensitivity Troponin values cannot be compared with other Troponin methodologies. Patients with high levels of Biotin oral intake (i.e >5mg/day) may have falsely decreased Troponin levels. Samples collected within 8 hours of biotin intake may require additional information for diagnosis. [facility] CENTERURINE MICROSCOPIC ONLYon [id number]sybss NONE SEENMary Rutan HospitalComuniversity of [facility] health on above:Performed By: #### BMP #### [facility] [address] [place] [address] Dr. Ibis Pettit identified Cx Nom (U)NOT INDICATEDNormalThSelect Medical Specialty Hospital - [facility]-FairhillComuniversity of [facility] health on above:Performed By: #### BMP #### [facility] [address] [place] [address] Dr. Ibis Baron SEENNormalNONE [facility] on above:Performed By: #### BMP #### [facility] [address] [place] [address] Dr. Ibis Oviedo LM Nom (Urine sed)NONE SEENNormalNONE SEENMary Rutan HospitalComuniversity of [facility] on above:Performed By: #### BMP #### [facility] [address] [place] [address] Dr. Ibis Rojaspithelial cells LM Ql (Urine sed)RARENormalNONE SEEN /RAREPremier Health on above:Performed By: #### BMP #### [facility] [address] [place] [address] Dr. Ibis GramajoGEAbnormalNONE SEENPremier Health on above:Performed By: #### BMP #### [facility] [address] [place] [address] Dr. Ibis JimenezMsysfCAJ9-1Ymaynlid8-2Atb [facility] HospitalComment on above:Performed By: #### BMP #### [facility] [address] [address] [address] Ibis JimenezWBC0-2AbnormalNONE SEENThe [facility] HospitalComment on above: Performed By: #### BMP #### [facility] [address] [address] [address] Ibis JimenezCT ABD/PELVIS WO CONon 05-30-0501VE ABD/PELVIS WO CONIndication: Pelvic pain status post [...] Electronically authenticated by: JASS LAURENT Date: 2021-10-06 20:08[facility] URINE PROFILEon 57-19-5257Nndqojnzg Ql (U)NegativeNormal NEGATIVEMary Rutan HospitalComment on above:Performed By: #### MONO #### [facility] [address] [place] [address] Dr. Ibis Sage (U)CLEARNormalCLEARMary Rutan HospitalComment on above: Performed By: #### MONO #### [facility] [address] [place] [address] Dr. Ibis Rivera (U)LT. YELLOWNormalYELLOWMary Rutan HospitalComment on above:Performed By: #### MONO #### [facility] [address] [place] [address] Dr. Ibis Chang micrscopic examination will be performed if indicated. NormalMary Rutan HospitalComuniversity of [facility] health on above:Performed By: #### MONO #### [facility] [address] [place] [address] Dr. Ibis JimenezGlucose Ql (U)NegativeNormalNEGATIVEMary Rutan HospitalComuniversity of [place] on above:Performed By: #### MONO #### [facility] [address] [place] [address] Dr. Ibis JimenezHemoglobin Ql (U)NegativeNormalNEGATIVEMercy Health St[facility] on above:Performed By: #### MONO #### [facility] [address] [place] [address] Dr. Ibis JimenezKetones Ql (U)NegativeNormalNEGATIVEMary Rutan HospitalComment on above:Performed By: #### MONO #### [facility] [address] [place] [address] Dr. Ibis JimenezLEUKOCYTESNegativeNormalNEGATIVEMary Rutan HospitalComuniversity of [facility] health on above:Performed By: #### MONO #### [facility] [address] [place] [address] Dr. Ibis JimenezNitrite Ql (U)NegativeNormalNEGATIVEMary Rutan HospitalComment on above:Performed By: #### MONO #### [facility] [address] [place] [address] Dr. Ibis JimenezpH (U)8.0 [pH]Normal5-9The [facility] HospitalComment on above: Performed By: #### MONO #### [facility] [address] [place] [address] Dr. Ibis JimenezSPEC GRAVITY1.847Oadkwg9.005-<=1.025The [facility] HospitalComment on above:Performed By: #### MONO #### [facility] [address] [place] [address] Dr. Ibis Quintanilla PROTEINNegativeNormalNEGATIVE/ TRACEThe [facility] Comment on above:Performed By: #### MONO #### [facility] [address] [place] [address] Dr. Ibis Curtis MICRO INDNOT INDICATEDNormalThe [facility] HospitalComment on above:Performed By: #### MONO #### [facility] [address] [place] [address] Dr. Ibis JimenezUrobilinogen Qn (U)0.2 {Dinorah'U}/dLNormal0.2 - 1.0Mary Rutan HospitalComment on above:Performed By: #### MONO #### [facility] [address] [place] [address] Dr. Ibis Drake URINE PROFILEon [id number] Ql (U)NegativeNormal NEGATIVEMary Rutan HospitalComment on above:Performed By: #### CVDTBH #### [facility] [address] [place] [address] Dr. Ibis Pratherarity (U)CLEARNormalCLEARThe [facility] HospitalComment on above: Performed By: #### CVDTBH #### [facility] [address] [place] [address] Dr. Ibis Rivera (U)YELLOWNormalYELLOWMary Rutan HospitalComment on above: Performed By: #### CVDTBH #### [facility] [address] [place] [address] Dr. Ibis Chang micrscopic examination will be performed if indicated. NormalThe [facility] HospitalComment on above:Performed By: #### CVDTBH #### [facility] [address] [address] [address] Ibis JimenezGlucose Ql (U)NegativeNormalNEGATIVEMary Rutan HospitalComment on above:Performed By: #### CVDTBH #### [facility] [address] [address] [address] Ibis JimenezHemoglobin Ql (U)NegativeNormalNEGATIVEMary [facility] Hospital Comment on above:Performed By: #### CVDTBH #### [facility] [address] [place] [address] Dr. Ibis JimenezKetones Ql (U)NegativeNormalNEGATIVEMary Rutan HospitalComment on above:Performed By: #### CVDTBH #### [facility] [address] [place] [address] Dr. Ibis JimenezLEUKOCYTESNegativeNormalNEGATIVEMary Rutan HospitalComment on above:Performed By: #### CVDTBH #### [facility] [address] [place] [address] Dr. Ibis JimenezNitrite Ql (U)NegativeNormalNEGATIVEMary Rutan HospitalComment on above:Performed By: #### CVDTBH #### [facility] [address] [place] [address] Dr. Ibis JimenezpH (U)6.0 [pH]Normal5-9Mary Rutan HospitalComment on above: Performed By: #### CVDTBH #### [facility] [address] [place] [address] Dr. Ibis JimenezSPEC GRAVITY1.114Aciudb4.005-<=1.025The [facility] HospitalComment on above:Performed By: #### CVDTBH #### [facility] [address] [place] [address] Dr. Ibis Quintanilla PROTEINNegativermalNEGATIVE/ TRACEMary [facility] Hospital Comment on above:Performed By: #### CVDTBH #### [facility] [address] [place] [address] Dr. Ibis Curtis MICRO INDNOT INDICATEDAvita Health System Bucyrus HospitalComment on above:Performed By: #### CVDTBH #### [facility] [address] [place] [address] Dr. Ibis Ray Qn (U)0.2 {Dinorah'U}/dLNormal0.2 - 1.0The [facility] HospitalComment on above:Performed By: #### CVDTBH #### [facility] [address] [place] [address] Dr. Ibis Alexis AUTO DIFFon [id number] #0.0 103/ulNormal0.0-0.1The [facility] HospitalComment on above:Performed By: #### BMP #### [facility] [address] [place] [address] Dr. Ibis JimenezBasophils/100 WBC (Bld)0.3 %Normal0.2-2.0[facility] Comment on above:Performed By: #### BMP #### [facility] [address] [place] [address] Dr. Ibis Acevedo #0.3 103/ulNormal0.0-0.7The [facility] HospitalComment on above: Performed By: #### BMP #### [facility] [address] [place] [address] Dr. Ibis Rojasosinophils/100 WBC (Bld)4.1 %Normal0.9-7.0The [facility] Comment on above:Performed By: #### BMP #### [facility] [address] [place] [address] Dr. Ibis Rojasrythrocyte distribution width (RBC) [Ratio]13.2 %Gfadve27.0-15.0 Mary Rut[facility] HospitalComment on above:Performed By: #### BMP #### [facility] [address] [place] [address] Dr. Ibis JimenezHematocrit (Bld) [Volume fraction]35.7 %Critically low36.0-48.0 The [facility] HospitalComment on above:Performed By: #### BMP #### [facility] [address] [address] [address] Ibis JimenezHemoglobin (Bld) [Mass/Vol]11.6 g/dLCritically low12.0-16.0The [facility] HospitalComment on above:Performed By: #### BMP #### [facility] [address] [place] [address] Dr. Ibis Soto #0.02 10e3/ulNormal0.00-0.03The [facility] HospitalComment on above:Performed By: #### BMP #### [facility] [address] [place] [address] Dr. Ibis Soto %0.3 %Normal0.0-0.5The [facility] HospitalComment on above: Performed By: #### BMP #### [facility] [address] [place] [address] Dr. Ibis Brenner #1.5 103/ulNormal1.2-3.8The [facility] HospitalComment on above:Performed By: #### BMP #### [facility] [address] [place] [address] Dr. Ibis Brennerhocytes/100 WBC (Bld)24.3 %Objcwb34.5-60.0The [facility] HospitalComment on above:Performed By: #### BMP #### [facility] [address] [place] [address] Dr. Ibis NewtonUAL DIFF REQNONormalThe [facility] HospitalComment on above: Performed By: #### BMP #### [facility] [address] [place] [address] Dr. [facility] (RBC) [Entitic mass]28.9 huDaogbl26.7-34.0The [facility] HospitalComment on above:Performed By: #### BMP #### [facility] [address] [place] [address] Dr. Ibis Frank (RBC) [Mass/Vol]32.5 g/dFMklxnk99.9-35.2The [facility] HospitalComment on above:Performed By: #### BMP #### [facility] [address] [address] [address] Ibis FrankV (RBC) [Entitic vol]89.0 cIWrrfoc91.0-99.0The [facility] HospitalComment on above:Performed By: #### BMP #### [facility] [address] [place] [address] Dr. Ibis Magallanes #0.5 103/ulNormal0.3-0.8The [facility] HospitalComment on above:Performed By: #### BMP #### [facility] [address] [place] [address] Dr. Ibis Barbaocytes/100 WBC (Bld)7.3 %Normal1.7-12.0The [facility] Comment on above:Performed By: #### BMP #### [facility] [address] [place] [address] Dr. Ibis Schultz #4.0 103/ulNormal1.4-6.5The [facility] HospitalComment on above:Performed By: #### BMP #### [facility] [address] [place] [address] Dr. Ibis Hiutrophils/100 WBC (Bld)63.7 %Kvwhhp97.0-75.0The [facility] HospitalComment on above:Performed By: #### BMP #### [facility] [address] [place] [address] Dr. Ibis Olsenlet mean volume (Bld) [Entitic vol]9.7 fLNormal9.5-13.5The [facility] HospitalComment on above:Performed By: #### BMP #### [facility] [address] [place] [address] Dr. Ibis JimenezPLT237 103/jwSxfwze090-696Ohu [facility] HospitalComment on above: Performed By: #### BMP #### [facility] [address] [place] [address] Dr. Ibis JimenezRBC4.01 106/ulCritically low4.20-5.40The [facility] HospitalComment on above:Performed By: #### BMP #### [facility] [address] [place] [address] Dr. Ibis JimenezWBC6.3 103/ulNormal4.0-11.0The [facility] HospitalComment on above: Performed By: #### BMP #### [facility] [address] [place] [address] Dr. Ibis JimenezLACTATE/LACTIC ACIDon 46-22-1067Vgqkjno [Moles/Vol]1.2 mmol/L Normal0.4-1.9The [facility] HospitalComment on above:Performed By: #### AMM #### [facility] [address] [place] [address] Dr. Ibis Lin 26-28-4866Dxvq nitrogen [Mass/Vol]7.0 mg/dLNormal7.0-18.0 The [facility] HospitalComment on above:Performed By: #### CVDTBH #### [facility] [address] [place] [address] Dr. Ibis GonzalesC AUTO DIFFon [id number] #0.0 103/ulNormal0.0-0.1The [facility] HospitalComment on above:Performed By: #### AMM #### [facility] [address] [place] [address] Dr. Ibis JimenezBasophils/100 WBC (Bld)0.2 %Normal0.2-2.0The [facility] Comment on above:Performed By: #### AMM #### [facility] [address] [place] [address] Dr. Ibis Acevedo #0.0 103/ulNormal0.0-0.7The [facility] HospitalComment on above: Performed By: #### AMM #### [facility] [address] [place] [address] Dr. Ibis Rojasosinophils/100 WBC (Bld)0.3 %Critically low0.9-7.0The [facility] HospitalComment on above:Performed By: #### AMM #### [facility] [address] [place] [address] Dr. Ibis Rojasrythrocyte distribution width (RBC) [Ratio]12.7 %Gfmwlk30.0-15.0 The [facility] HospitalComment on above:Performed By: #### AMM #### [facility] [address] [place] [address] Dr. Ibis JimenezHematocrit (Bld) [Volume fraction]43.4 %Uxfklx88.0-48.0The [facility] HospitalComment on above:Performed By: #### AMM #### [facility] [address] [place] [address] Dr. Ibis JimenezHemoglobin (Bld) [Mass/Vol]14.6 g/nGIpthrq54.0-16.0The [facility] HospitalComment on above:Performed By: #### AMM #### [facility] [address] [place] [address] Dr. Ibis Soto #0.03 10e3/ulNormal0.00-0.03The [facility] HospitalComuniversity of [facility] on above:Performed By: #### AMM #### [facility] [address] [place] [address] Dr. Ibis Soto %0.3 %Normal0.0-0.5The [facility] HospitalComun[facility] on above: Performed By: #### AMM #### [facility] [address] [place] [address] Dr. Ibis BrennerH #1.2 103/ulNormal1.2-3.8The [facility] HospitalComun[facility] of [facility] on above:Performed By: #### AMM #### [facility] [address] [place] [address] Dr. Ibis Vuongmphocytes/100 WBC (Bld)11.6 %Critically low20.5-60.0The [facility] HospitalComun[facility] on above:Performed By: #### AMM #### [facility] [address] [place] [address] Dr. Ibis NewtonUAL DIFF REQNONormalThe [facility] HospitalComment on above: Performed By: #### AMM #### [facility] [address] [address] [address] Ibis Frank (RBC) [Entitic mass]28.5 lkBitxfz34.7-34.0The [facility] HospitalComment on above:Performed By: #### AMM #### [facility] [address] [place] [address] Dr. Ibis Frank (RBC) [Mass/Vol]33.6 g/hJFvukym36.9-35.2The [facility] HospitalComment on above:Performed By: #### AMM #### [facility] [address] [place] [address] Dr. Ibis FrankV (RBC) [Entitic vol]84.6 pJNnacct90.0-99.0The [facility] HospitalComment on above:Performed By: #### AMM #### [facility] [address] [place] [address] Dr. Ibis Magallanes #0.6 103/ulNormal0.3-0.8The [facility] HospitalComment on above:Performed By: #### AMM #### [facility] [address] [place] [address] Dr. Ibis Barbaocytes/100 WBC (Bld)5.9 %Normal1.7-12.0The [facility] Comment on above:Performed By: #### AMM #### [facility] [address] [place] [address] Dr. Ibis Schultz #8.2 103/ulCritically high1.4-6.5The [facility] Comment on above:Performed By: #### AMM #### [facility] [address] [place] [address] Dr. Ibis Hiutrophils/100 WBC (Bld)81.7 %Critically high43.0-75.0The [facility] HospitalComment on above:Performed By: #### AMM #### [facility] [address] [place] [address] Dr. Ibis Olsenlet mean volume (Bld) [Entitic vol]9.8 fLNormal9.5-13.5The [facility] Hospitalment on above:Performed By: #### AMM #### [facility] [address] [place] [address] Dr. Ibis JimenezPLT264 103/ukQxnruv445-769Mrp [facility] HospitalComun[facility] on above: Performed By: #### AMM #### [facility] [address] [place] [address] Dr. Ibis JimenezRBC5.13 106/ulNormal4.20-5.40The [facility] HospitalComment on above:Performed By: #### AMM #### [facility] [address] [place] [address] Dr. Ibis HamiltonBC10.1 103/ulNormal4.0-11.0The [facility] Hospitalment on above:Performed By: #### AMM #### [facility] [address] [place] [address] Dr. Ibis JimenezCREATININEon 53-44-8285Kpbyazvyfu [Mass/Vol]0.69 mg/dLNormal 0.55-1.02The [facility] HospitalComment on above:Performed By: #### CVDTBH #### [facility] [address] [place] [address] Dr. Ibis RojasGFR-AF GAMBIAN>60Normal>=60The [facility] HospitalComun[facility] on above:Performed By: #### CVDTBH #### [facility] [address] [place] [address] Dr. Ibis RojasGFR-NON AF GAMBIAN>60Normal>=60The [facility] Hospitalment on above:Performed By: #### CVDTBH #### [facility] [address] [place] [address] Dr. Ibis GonzalesC AUTO DIFFon [id number] #0.0 103/ulNormal0.0-0.1The [facility] on above:Performed By: #### AMM #### [facility] [address] [place] [address] Dr. Ibis JimenezBasophils/100 WBC (Bld)0.3 %Normal0.2-2.0The [facility] Comment on above:Performed By: #### AMM #### [facility] [address] [place] [address] Dr. Ibis Acevedo #0.1 103/ulNormal0.0-0.7The [facility] HospitalComment on above: Performed By: #### AMM #### [facility] [address] [place] [address] Dr. Ibis Rojasosinophils/100 WBC (Bld)1.9 %Normal0.9-7.0The [facility] Comment on above:Performed By: #### AMM #### [facility] [address] [place] [address] Dr. Ibis Rojasrythrocyte distribution width (RBC) [Ratio]12.7 %Qhqnic87.0-15.0 The [facility] HospitalComment on above:Performed By: #### AMM #### [facility] [address] [place] [address] Dr. Ibis JimenezHematocrit (Bld) [Volume fraction]38.1 %Gdpicz19.0-48.0The [facility] HospitalComment on above:Performed By: #### AMM #### [facility] [address] [place] [address] Dr. Ibis JimenezHemoglobin (Bld) [Mass/Vol]12.7 g/jQWdherw12.0-16.0The [facility] HospitalComment on above:Performed By: #### AMM #### [facility] [address] [place] [address] Dr. Ibis Soto #0.02 10e3/ulNormal0.00-0.03The [facility] HospitalComment on above:Performed By: #### AMM #### [facility] [address] [place] [address] Dr. Ibis Soto %0.3 %Normal0.0-0.5The [facility] HospitalComment on above: Performed By: #### AMM #### [facility] [address] [place] [address] Dr. Ibis Monsalve #1.9 103/ulNormal1.2-3.8The [facility] HospitalComment on above:Performed By: #### AMM #### [facility] [address] [place] [address] Dr. Ibis Vuongmphocytes/100 WBC (Bld)30.5 %Ngpdni46.5-60.0The [facility] HospitalComment on above:Performed By: #### AMM #### [facility] [address] [place] [address] Dr. Ibis NewtonUAL DIFF REQNONormalThe [facility] HospitalComment on above: Performed By: #### AMM #### [facility] [address] [place] [address] Dr. Ibis Frank (RBC) [Entitic mass]28.3 deVtpbsi09.7-34.0The [facility] HospitalComment on above:Performed By: #### AMM #### [facility] [address] [place] [address] Dr. Ibis Frank (RBC) [Mass/Vol]33.3 g/jENkehsf10.9-35.2The [facility] Hospitalment on above:Performed By: #### AMM #### [facility] [address] [place] [address] Dr. Ibis Frank (RBC) [Entitic vol]85.0 fSYnqunj49.0-99.0The [facility] HospitalComment on above:Performed By: #### AMM #### [facility] [address] [place] [address] Dr. Ibis Magallanes #0.3 103/ulNormal0.3-0.8The [facility] HospitalComment on above:Performed By: #### AMM #### [facility] [address] [place] [address] Dr. Ibis Barbaocytes/100 WBC (Bld)5.2 %Normal1.7-12.0The [facility] Comment on above:Performed By: #### AMM #### [facility] [address] [place] [address] Dr. Ibis Schultz #3.9 103/ulNormal1.4-6.5The [facility] HospitalComment on above:Performed By: #### AMM #### [facility] [address] [place] [address] Dr. Ibis Hiutrophils/100 WBC (Bld)61.8 %Qhjswy08.0-75.0The [facility] HospitalComment on above:Performed By: #### AMM #### [facility] [address] [place] [address] Dr. Ibis JimenezPlatelet mean volume (Bld) [Entitic vol]9.7 fLNormal9.5-13.5The [facility] HospitalComment on above:Performed By: #### AMM #### [facility] [address] [place] [address] Dr. Ibis JimenezPLT255 103/lkPbnkzl017-195Vac [facility] HospitalComment on above: Performed By: #### AMM #### [facility] [address] [place] [address] Dr. Ibis JimenezRBC4.48 106/ulNormal4.20-5.40The [facility] on above:Performed By: #### AMM #### [facility] [address] [place] [address] Dr. Ibis JimenezWBC6.3 103/ulNormal4.0-11.0The [facility] HospitalComun[facility] on above: Performed By: #### AMM #### [facility] [address] [place] [address] Dr. Ibis JimenezPREG HCG QUALon 81-27-6293MCYQZOWNQ, QUALNegativeNormalNEGATIVE The [facility] HospitalComment on above:Performed By: #### MONO #### [facility] [address] [place] [address] Dr. Ibis JimenezCovid-19 PCR (CVDTBH)on [id number]-CoV-2 (COVID-19) RNA SAURABH+probe Ql (Unsp spec)Not detectedNormalNOT DETECTEDThe [facility] Comment on above:Result Comment: This test is not yet approved or cleared by the [place] FDA. When there are no FDA-approved or cleared tests available, and other criteria are met, FDA can make tests available under an emergency access mechanism called an Emergency Use Authorization (EUA). The EUA for this test is supported by the [place] of Health and Human Service's (HHS's) declaration [...] consistent with SARS-CoV-2.Performed By: #### BMP #### [facility] [address] [address] [address] Ibis JimenezTYPE AND SCREENon 52-11-0060AROE AND SCREENNegativeNormalThe [facility] HospitalComment on above:Performed By: #### BMP #### [facility] [address] [address] [address] Ibis JimenezCovid-19 PCR ([facility])on [id number]-CoV-2 (COVID-19) RNA SAURABH+probe Ql (Unsp spec)Not detectedNormalNOT DETECTEDThe [facility] Comment on above:Result Comment: This test is not yet approved or cleared by the [place] FDA. When there are no FDA-approved or cleared tests available, and other criteria are met, FDA can make tests available under an emergency access mechanism called an Emergency Use Authorization (EUA). The EUA for this test is supported by the [place] of Health and Human Service's (HHS's) declaration [...] consistent with SARS-CoV-2.Performed By: #### CVDTBH #### [facility] [address] [place] [address] Dr. Ibis JimenezTYPE AND SCREENon 96-97-4115TCGN AND SCREENNegativeNormalThe [facility] HospitalComment on above:Performed By: #### BMP #### [facility] [address] [place] [address] Dr. Ibis JimenezCHLAMYDIA/GONOCOCCUS SAURABH (SWAB/URINE/PAPon 03-91-3271Sgloamubc trachomatis, NAANegativeNormalNegativeThe [facility] HospitalComment on above: Performed By: #### ACET, SALYC #### [facility] [address] [place] [address] Dr. Ibis JimenezNeisseria gonorrhoeae, NAANegativeNormalNegativeThe [facility] HospitalComment on above:Performed By: #### ACET, SALYC #### [facility] [address] [place] [address] Dr. Ibis Alexis AUTO DIFFon 24-11-2572PWPT #0.0 103/ulNormal0.0-0.1The [facility] HospitalComment on above:Performed By: #### CVDTBH #### [facility] [address] [place] [address] Dr. Ibis JimenezBasophils/100 WBC (Bld)0.3 %Normal0.2-2.0The [facility] Comment on above:Performed By: #### CVDTBH #### [facility] [address] [place] [address] Dr. Baumann ChangEO #0.2 103/ulNormal0.0-0.7The [facility] HospitalComment on above: Performed By: #### CVDTBH #### [facility] [address] [place] [address] Dr. Ibis Rojasosinophils/100 WBC (Bld)2.5 %Normal0.9-7.0The [facility] [facility] Comment on above:Performed By: #### CVDTBH #### [facility] [address] [place] [address] Dr. Ibis Rojasrythrocyte distribution width (RBC) [Ratio]13.0 %Dfusrh77.0-15.0 [facility] HospitalComment on above:Performed By: #### CVDTBH #### [facility] [address] [place] [address] Dr. Ibis JimenezHematocrit (Bld) [Volume fraction]38.1 %Zqngzb71.0-48.0The [facility] HospitalComment on above:Performed By: #### CVDTBH #### [facility] [address] [place] [address] Dr. Ibis JimenezHemoglobin (Bld) [Mass/Vol]12.8 g/gKDhztai20.0-16.0The [facility] HospitalComment on above:Performed By: #### CVDTBH #### [facility] [address] [place] [address] Dr. Ibis Soto #0.02 10e3/ulNormal0.00-0.03The [facility] HospitalComment on above:Performed By: #### CVDTBH #### [facility] [address] [place] [address] Dr. Ibis Soto %0.3 %Normal0.0-0.5The [facility] HospitalComment on above: Performed By: #### CVDTBH #### [facility] [address] [place] [address] Dr. Ibis BrennerH #1.5 103/ulNormal1.2-3.8The [facility] HospitalComment on above:Performed By: #### CVDTBH #### [facility] [address] [place] [address] Dr. Ibis Vuongmphocytes/100 WBC (Bld)22.5 %Serijr82.5-60.0The [facility] HospitalComment on above:Performed By: #### CVDTBH #### [facility] [address] [place] [address] Dr. Ibis Viera DIFF REQNONormalThe [facility] HospitalComment on above: Performed By: #### CVDTBH #### [facility] [address] [place] [address] Dr. Ibis Frank (RBC) [Entitic mass]28.6 jgVmadxe75.7-34.0The [facility] HospitalComment on above:Performed By: #### CVDTBH #### [facility] [address] [place] [address] Dr. Ibis Frank (RBC) [Mass/Vol]33.6 g/yVQcllwi63.9-35.2The [facility] HospitalComment on above:Performed By: #### CVDTBH #### [facility] [address] [place] [address] Dr. Ibis Dan (RBC) [Entitic vol]85.0 wZPvhuxn47.0-99.0The [facility] HospitalComment on above:Performed By: #### CVDTBH #### [facility] [address] [place] [address] Dr. Ibis Magallanes #0.4 103/ulNormal0.3-0.8The [facility] HospitalComment on above:Performed By: #### CVDTBH #### [facility] [address] [place] [address] Dr. Ibis Barbaocytes/100 WBC (Bld)6.3 %Normal1.7-12.0The [facility] Comment on above:Performed By: #### CVDTBH #### [facility] [address] [place] [address] Dr. Ibis Schultz #4.6 103/ulNormal1.4-6.5The [facility] HospitalComment on above:Performed By: #### CVDTBH #### [facility] [address] [place] [address] Dr. Ibis Hiutrophils/100 WBC (Bld)68.1 %Hmkazd04.0-75.0The [facility] Hospitalment on above:Performed By: #### CVDTBH #### [facility] [address] [place] [address] Dr. Ibis JimenezPlatelet mean volume (Bld) [Entitic vol]9.8 fLNormal9.5-13.5The [facility] HospitalComment on above:Performed By: #### CVDTBH #### [facility] [address] [place] [address] Dr. Ibis JimenezPLT243 103/vyTbmokh606-146Nmj [facility] on above: Performed By: #### CVDTBH #### [facility] [address] [place] [address] Dr. Ibis JimenezRBC4.48 106/ulNormal4.20-5.40The [facility] on above:Performed By: #### CVDTBH #### [facility] [address] [place] [address] Dr. Ibis JimenezWBC6.7 103/ulNormal4.0-11.0The [facility] on above: Performed By: #### CVDTBH #### [facility] [address] [place] [address] Dr. Ibis JimenezCT ABD/PELVIS WO [facility]on [id number] ABD/PELVIS WO CONTECHNIQUE: CT abdomen and pelvis. [...] Electronically authenticated by: NELI COTTO Date: 2021-08-14 18:00[facility] URINE PROFILEon [id number] Ql (U)SMALLAbnormal NEGATIVEMary Rutan HospitalComment on above:Performed By: #### BMP #### [facility] [address] [place] [address] Dr. Ibis Sage (U)CLEARNormalCLEARMary Rutan HospitalComment on above: Performed By: #### BMP #### [facility] [address] [place] [address] Dr. Ibis Rivera (U)YELLOWNormalYELLOWMary Rutan HospitalComment on above: Performed By: #### BMP #### [facility] [address] [place] [address] Dr. Ibis Chang micrscopic examination will be performed if indicated. NormalMary Rutan HospitalComment on above:Performed By: #### BMP #### [facility] [address] [place] [address] Dr. Ibis JimenezGlucose Ql (U)NegativeNormalNEGATIVEMary Rutan HospitalComment on above:Performed By: #### BMP #### [facility] [address] [place] [address] Dr. Ibis JimenezHemoglobin Ql (U)SMALLAbnormalNEGATIVEMary [facility] Comment on above:Performed By: #### BMP #### [facility] [address] [address] [address] Ibis Baumann Ql (U)TRACEAbnormalNEGATIVEThe [facility] HospitalComment on above:Performed By: #### BMP #### [facility] [address] [place] [address] Dr. Ibis JimenezLEUKOCYTESNegativeNormalNEGATIVEThe [facility] HospitalComment on above:Performed By: #### BMP #### [facility] [address] [address] [address] Ibis Avalostrite Ql (U)NegativeNormalNEGATIVEThe [facility] HospitalComment on above:Performed By: #### BMP #### [facility] [address] [place] [address] Dr. Ibis JimenezpH (U)5.5 [pH]Normal5-9The [facility] HospitalComment on above: Performed By: #### BMP #### [facility] [address] [place] [address] Dr. Ibis JimenezSPEC GRAVITY>=1.906Wupsnqdu1.005-<=1.025The [facility] on above:Performed By: #### BMP #### [facility] [address] [place] [address] Dr. Ibis Quintanilla PROTEINTRACENormalNEGATIVE/ TRACEThe [facility] HospitalComment on above:Performed By: #### BMP #### [facility] [address] [place] [address] Dr. Ibis Curtis MICRO INDINDICATEDNormalThe [facility]enton HospitalComment on above: Performed By: #### BMP #### [facility] [address] [place] [address] Dr. Ibis Lorenzbilinogen Qn (U)1.0 {Dinorah'U}/dLNormal0.2 - 1.0The [facility] HospitalComment on above:Performed By: #### BMP #### [facility] [address] [place] [address] Dr. Ibis JimenezPREGNANCY URon [id number], QUALNegativeNormalNEGATIVEThe [facility] HospitalComment on above:Performed By: #### BMP #### [facility] [address] [address] [address] Ibis ChristinaF CHEM 8 (BAS METB)on [id number] gap [Moles/Vol]15.3 mmol/LNormalThe [facility] HospitalComment on above:Performed By: #### BMP #### [facility] [address] [place] [address] Dr. Ibis JimenezCalcium [Mass/Vol]8.4 mg/dLCritically low8.5-10.1The [facility] HospitalComment on above:Performed By: #### BMP #### [facility] [address] [place] [address] Dr. Ibis JimenezChloride [Moles/Vol]106 mmol/VUbyate75-456Icn [facility] Comment on above:Performed By: #### BMP #### [facility] [address] [place] [address] Dr. Ibis JimenezCO2 [Moles/Vol]22.3 mmol/EHnmrjv11.0-32.0The [facility] Comment on above:Performed By: #### BMP #### [facility] [address] [place] [address] Dr. Ibis JimenezCreatinine [Mass/Vol]0.75 mg/dLNormal0.55-1.02The [facility] HospitalComment on above:Performed By: #### BMP #### [facility] [address] [place] [address] Dr. Ibis RojasGFR-AF GAMBIAN>60Normal>=60The [facility] HospitalComment on above:Performed By: #### BMP #### [facility] [address] [place] [address] Dr. Ibis RojasGFR-NON AF GAMBIAN>60Normal>=60The [facility] HospitalComment on above:Performed By: #### BMP #### [facility] [address] [place] [address] Dr. Ibis JimenezGlucose [Mass/Vol]107 mg/dLCritically hqzn39-582Ovg [facility] HospitalComment on above:Performed By: #### BMP #### [facility] [address] [address] [address] Ibis JimenezPotassium [Moles/Vol]3.6 mmol/LNormal3.5-5.1[facility] Comment on above:Performed By: #### BMP #### [facility] [address] [address] [address] Ibis Potterdium [Moles/Vol]140 mmol/TBhoqmz013-184Sbm [facility] Comment on above:Performed By: #### BMP #### [facility] [address] [address] [address] Ibis JimenezUrea nitrogen [Mass/Vol]13.0 mg/dLNormal7.0-18.0[facility] HospitalComment on above:Performed By: #### BMP #### [facility] [address] [address] [address] Ibis Lama nitrogen/Creatinine [Mass ratio]17.3 mg/mgNoMercy Health St. Anne HospitalComment on above:Performed By: #### BMP #### [facility] [address] [place] [address] Dr. Ibis CAINon [id number]P SEEN [facility] HospitalComun[facility] on above:Performed By: #### BMP #### [facility] [address] [address] [address] Ibis Pettit identified Cx Nom (U)NOT INDICATEDNoMercy Health St. Anne HospitalComuniversity of [facility] on above:Performed By: #### BMP #### [facility] [address] [address] [address] Ibis Baron SEENNormalNONE SEENMary Rutan HospitalComuniversity of [facility] on above:Performed By: #### BMP #### [facility] [address] [address] [address] Ibis Oviedo LM Nom (Urine sed)NONE SEENNormalNONE SEENMary Rutan HospitalComuniversity of [facility] on above:Performed By: #### BMP #### [facility] [address] [address] [address] Baumann ChangEpithelial cells LM Ql (Urine sed)MANYAbnormalNONE SEEN /RAREThe [facility] HospitalComun[facility] on above:Performed By: #### BMP #### [facility] [address] [address] [address] Ibis GallegosCOUSSMALLAbnormalNONE SEENThe [facility] HospitalComun[facility] on above:Performed By: #### BMP #### [facility] [address] [address] [address] Ibis JimenezOtouzWHA0-6Lvmsgecd7-1Hzh [facility] HospitalCom[facility] on above:Performed By: #### BMP #### [facility] [address] [address] [address] Ibis JimenezWBC2-5AbnormalNONE SEENThe [facility] on above: Performed By: #### BMP #### [facility] [address] [address] [address] Ibis JimenezMARY [facility] Auto DifferentialOrdered By: Keven Ching on 12-24-2020 Absolute Eos #0.44[facility] Phone: absolute Immature Granulocyte0.05[facility] Phone: absolute Lymph #2.48[facility] Phone: absolute Mckean #0.55[facility] Phone: basophils (Bld) [#/Vol]10*3/uLBethesda North HospitalOn Center Software Phone: basophils/100 WBC (Bld)0 %0 - 2 %[employer] Phone: differential TypeNOT REPORTEDBethesda North HospitalOn Center Software Phone: eosinophils/100 WBC (Bld)5 %High1 - 4 %[employer] Phone: Hematocrit (Bld) [Volume fraction]37.4 %36.3 - 47.1 % [employer] Phone: Hemoglobin.gastrointestinal spec 1 Ql (Stl)12.3 g/dL 11.9 - 15.1 g/dLBethesda North HospitalOn Center Software Phone: Immature granulocytes/100 WBC (Bld)1 %Mgsf9CdmqzOn Center Software Phone: Interpretation and review of laboratory results AbnormalBethesda North HospitalOn Center Software Phone: Lymphocytes/100 WBC (Bld)30 %24 - 43 %[employer] Phone: MCH (RBC) [Entitic mass]28.5 pg25.2 - 33.5 pgBethesda North HospitalOn Center Software Phone: MCHC (RBC) [Mass/Vol]32.9 g/dL28.4 - 34.8 g/dLBethesda North HospitalOn Center Software Phone: MCV (RBC) [Entitic vol]86.8 fL82.6 - 102.9 fLBethesda North HospitalOn Center Software Phone: Monocytes/100 WBC (Bld)7 %3 - 12 %[employer] Phone: NRBC Automated0.00.0 per 100 WBCBethesda North HospitalOn Center Software Phone: platelet distribution width (Bld) [Ratio]12.7 %11.8 - 14.4 %[employer] Phone: Wlatelet EstimateNOT REPORTEDBethesda North HospitalOn Center Software Phone: Hlatelet mean volume (Bld) [Entitic vol]9.4 fL8.1 - 13.5 fLBethesda North HospitalOn Center Software Phone: Platelets (Bld) [#/Vol]252 10*3/uLBethesda North HospitalOn Center Software Phone: RBC (Bld) [#/Vol]4.31 10*6/uL3.95 - 5.11 m/[employer] Phone: RBC (Bld) [#/Vol]NOT REPORTEDMet[facility] [employer] Work Phone: segmented neutrophils/100 WBC (Bld)57 %36 - 65 %[facility] [employer] Work Phone: segs Absolute4.78[facility] [employer] Work Phone: WBC (Bld) [#/Vol]8.3 10*3/uLMetrohealth Parma Medical Center [employer] Work Phone: WBC (Bld) [#/Vol]NOT REPORTEDMet[facility] [employer] Work Phone: [facility] [employer] Work Phone: cBC with Diffon [id number]. Basophil<0.03Normal 0.00-0.20MerKettering Health Springfield HospitalComment on above:Performed By: #### CMPX, CDP #### [address] [place], [facility] Enhanced Environmental Operator: Wendy Elder.Imm.Granulocyte0.05 k/uLNormal0.00-0.30[facility] HospitalComment on above:Performed By: #### CMPX, CDP #### [address] [place] [address] Enhanced Environmental Operator: Wendy Elder.Neutrophil (Seg)4.78 k/uLNormal1.50-8.10[facility] HospitalComment on above:Performed By: #### CMPX, CDP #### [address] [place], [place] [id number] Enhanced Environmental Operator: Souleymane Pineda MDBasophils/100 WBC (Bld)0 %Normal0-2[facility] HospitalComment on above:Performed By: #### CMPX, CDP #### [address] [place], [place] [id number] Enhanced Environmental Operator: Souleymane Pinead MDEosinophils (Bld) [#/Vol]0.44 10*3/uLNormal 0.00-0.44[facility] HospitalComment on above:Performed By: #### CMPX, CDP #### [address] [place] [address] Enhanced Environmental Operator: Souleymane Pineda MDEosinophils/100 WBC (Bld)5 %High1-4[facility] HospitalComment on above:Performed By: #### CMPX, CDP #### [address] [place] [address] Enhanced Environmental Operator: Souleymane Pineda MDErythrocyte distribution width (RBC) [Ratio]12.7 % Xwceld14.8-14.4[facility] HospitalComment on above:Performed By: #### CMPX, CDP #### [address] [place] [address] Enhanced Environmental Operator: Souleymane Pineda MDHematocrit (Bld) [Volume fraction]37.4 %Normal 36.3-47.1[facility] HospitalComment on above:Performed By: #### CMPX, CDP #### [address] [place] [id number] Enhanced Environmental Operator: Souleymane Pineda MDHemoglobin (Bld) [Mass/Vol]12.3 g/dLNormal 11.9-15.1MEast [facility] HospitalComment on above:Performed By: #### CMPX, CDP #### [address] [place] [address] Enhanced Environmental Operator: Souleymane Pineda MDImmature granulocytes/100 WBC (Bld)1 %Bout9JrwfzWayne Healthcare Main Campus HospitalComment on above:Performed By: #### CMPX, CDP #### [address] [place] [address] Enhanced Environmental Operator: Souleymane Pineda MDLymphocytes (Bld) [#/Vol]2.48 10*3/uLNormal 1.10-3.70[facility] CenterComment on above:Performed By: #### CMPX, CDP #### [address] [place], [place] [id number] Enhanced Environmental Operator: Souleymane Pineda MDLymphocytes/100 WBC (Bld)30 %Xbbzko62-12XwutgKettering Health – Soin Medical CenterComment on above:Performed By: #### CMPX, CDP #### [address] [place] [address] Enhanced Environmental Operator: JUNAID ElderCH (RBC) [Entitic mass]28.5 dnTipczv70.2-33.5 [facility] CenterComment on above:Performed By: #### CMPX, CDP #### [address] [place], [place] [address] Enhanced Environmental Operator: LASHAWN ElderC (RBC) [Mass/Vol]32.9 g/sUCegjlz19.4-34.8[facility] CenterComment on above:Performed By: #### CMPX, CDP #### [address] [place], [place] [address] Enhanced Environmental Operator: JUNAID ElderCV (RBC) [Entitic vol]86.8 cBXjsbgx29.6-102.9 [facility] HospitalComment on above:Performed By: #### CMPX, CDP #### [address] [place] [address] Enhanced Environmental Operator: JUNAID Elderonocytes (Bld) [#/Vol]0.55 10*3/uLNormal0.10-1.20 [facility] CenterComment on above:Performed By: #### CMPX, CDP #### [address] [place] [address] Enhanced Environmental Operator: JUNAID Elderonocytes/100 WBC (Bld)7 %Normal3-12[facility] Medical CenterComment on above:Performed By: #### CMPX, CDP #### [facility] [address] [place] [address] [place] [address] Enhanced Environmental Operator: Souleymane Pineda MDNeutrophil (Seg)57 %Furwmf55-74Frati Tiffin HospitalComment on above:Performed By: #### CMPX, CDP #### [address] [place] [address] Enhanced Environmental Operator: COURTNEY Elder Automated0.0 per 100 WBCNormal0.0[facility] Medical CenterComment on above:Performed By: #### CMPX, CDP #### [address] [place], [place] [address] Enhanced Environmental Operator: Greta Elder mean volume (Bld) [Entitic vol]9.4 fL Normal8.1-13.5[facility] Medical CenterComment on above:Performed By: #### CMPX, CDP #### [address] [place], [place] [id number] Enhanced Environmental Operator: Kaylee Elderteyanni (Bld) [#/Vol]252 10*3/lNUrcdti364-887 [facility] HospitalComment on above:Performed By: #### CMPX, CDP #### [facility] [address] [place] [address] Dr[place], [place] [id number] Enhanced Environmental Operator: FRANCISCO ElderBC (Bld) [#/Vol]4.31 10*6/uLNormal3.95-5.11[facility] HospitalComment on above:Performed By: #### CMPX, CDP #### [address] [place], [place] [address] Enhanced Environmental Operator: JESSE ElderBC (Bld) [#/Vol]8.3 10*3/uLNormal3.5-11.3[facility]ow HospitalComment on above:Performed By: #### CMPX, CDP #### [address] [place], [place] [address]683 Enhanced Environmental Operator: Amaris Elder Diff PerformedNOT REPORTEDNormalWayne Healthcare Main Campus HospitalComment on above:Performed By: #### CMPX, CDP #### [address] [place] [address] Enhanced Environmental Operator: Kaylee Eldertelet CommentNOT REPORTEDNormalWayne Healthcare Main Campus HospitalComment on above:Performed By: #### CMPX, CDP #### [address] [place], [place] [address]483 Enhanced Environmental Operator: SILVIA Elder morphology finding Nom (Bld)NOT REPORTEDNormal [facility] HospitalComment on above:Performed By: #### CMPX, CDP #### [address] [place], [place] [address] Enhanced Environmental Operator: RENETTA Elder MorphologyNOT REPORTEDNormalWayne Healthcare Main Campus HospitalComment on above:Performed By: #### CMPX, CDP #### [address] [place], [place] [address]83 Enhanced Environmental Operator: BEE Elder HEAD WO CONTRASTon [id number] HEAD WO CONTRASTEXAMINATION: CT OF THE HEAD [...] the orbits demonstrate no acute abnormality. SINUSES: Sijv-jk-plarinpc paranasal sinus mucosal thickening. SOFT TISSUES/SKULL: No acute abnormality of the visualized skull or soft tissues. IMPRESSION: No acute intracranial abnormality. Interpreted by: Edwin Bentley MD Signed by: Edwin Bentley MD 12/24/20 Final resultNormalKettering Health – Soin Medical CenterCT Head WO ContrastOrdered By: Keven Ching on [id number] acute intracranial abnormality.[employer] Phone: eXAMINATION: CT OF THE HEAD WITHOUT [...] of theorbits demonstrate no acute abnormality. SINUSES: Oyhs-px-kuzwgpkc paranasal sinus mucosal thickening. SOFT TISSUES/SKULL: No acute abnormality of the visualized skull or soft tissues.[employer] Phone: eruben [facility] Incoming Radiant Results From [employer] - 12/24/2020 8:49 PM EDT EXAMINATION: CT [...] the orbits demonstrate no acute abnormality. SINUSES: Sorf-aq-cryvomta paranasal sinus mucosal thickening. SOFT TISSUES/SKULL: No acute abnormality of the visualized skull or soft tissues. IMPRESSION: No acute intracranial abnormality. [facility] Work Phone: [facility] Work Phone: comp Metabolic Pr/rfx MGon [id number] [Mass/Vol]mg/dLLow0.3-1.2MEast [facility] HospitalComment on above:Performed By: #### AGUSTÍN, CDP #### [address] [place] [address] Enhanced Environmental Operator: Souleymane Pineda MD(cont.)[facility]ayette Medical CenterComment on above:Result Comment: Average GFR for 20-29 years old: 116 mL/min/1.73sq m Chronic Kidney Disease: <60 mL/min/1.73sq m Kidney failure: <15 mL/min/1.73sq m eGFR calculated using average adult body mass. Additional eGFR calculator available at: http://www.[employer]/multiple_crcl_2012.htmPerformed By: #### AGUSTÍN, CDP #### [address] [place] [address] Enhanced Environmental Operator: Souleymane Pineda MDAlbumin [Mass/Vol]4.0 g/dLNormal3.5-5.2MMemorial HospitalComment on above:Performed By: #### KEKEX, CDP #### [address] [place] [address] Enhanced Environmental Operator: Souleymane Sturtz, MDAlbumin/Glob Ratio1.6Veklmo7.0-2.5MerKettering Health Springfield HospitalComment on above:Performed By: #### CMPX, CDP #### [address] [place], [place] [address] Enhanced Environmental Operator: Jennifer Elderkaline Phos90 U/ANpahnb18-302YfyfmKettering Health – Soin Medical CenterComment on above:Performed By: #### CMPX, CDP #### [facility] [address] [place] [address] [place] [address] Enhanced Environmental Operator: Souleymane Pineda MDALT [Catalytic activity/Vol]40 U/LHigh5-33MerWaterbury HospitalComment on above:Performed By: #### CMPX, CDP #### [address] [place] [address] Enhanced Environmental Operator: Souleymane Pineda MDAnion gap [Moles/Vol]11 mmol/LNormal9-17[facility] HospitalComment on above:Performed By: #### CMPX, CDP #### [address] [place] [address] Enhanced Environmental Operator: Souleymane Pineda MDAST [Catalytic activity/Vol]19 U/LNormal<32MerWaterbury HospitalComment on above:Performed By: #### CMPX, CDP #### [facility] [address] [place] [address] [place] [address] Enhanced Environmental Operator: Souleymane Pineda MDBUN/CRE Glajc40Xsjpic6-32Rmhnd [facility] Comment on above:Performed By: #### CMPX, CDP #### [facility] [address] [place] [address] [place] [address] Enhanced Environmental Operator: Souleymane Pineda MDCalcium [Mass/Vol]8.9 mg/dLNormal8.6-10.4[facility] HospitalComment on above:Performed By: #### CMPX, CDP #### [address] [place] [address] Enhanced Environmental Operator: CLARK Elderhloride [Moles/Vol]104 mmol/OUcjhkj24-364Jpjsd Tiffin HospitalComment on above:Performed By: #### CMPX, CDP #### [address] [place], [place] [id number] Enhanced Environmental Operator: Souleymane Pineda MDCO2 [Moles/Vol]24 mmol/EIhuets66-87Imjga Tiffin HospitalComment on above:Performed By: #### CMPX, CDP #### [address] [place], [place] [id number] Enhanced Environmental Operator: CLARK Elderreatinine [Mass/Vol]0.60 mg/dLNormal0.50-0.90 [facility] CenterComment on above:Performed By: #### CMPX, CDP #### [address] [place], [place] [address]83 Enhanced Environmental Operator: Souleymane Pineda MDGFR, Amer>60Normal>60[facility] Comment on above:Performed By: #### CMPX, CDP #### [address] [place], [place] [id number] Enhanced Environmental Operator: Souleymane Pineda MDGFR,non Amer>60Normal>60[facility] HospitalComment on above:Performed By: #### CMPX, CDP #### [address] [place] [address] Enhanced Environmental Operator: Souleymane Pineda MDGlucose [Mass/Vol]91 mg/rGTuixrv62-02Pxdgn [facility] HospitalComment on above:Performed By: #### CMPX, CDP #### [address] [place], [place] [id number] Enhanced Environmental Operator: Souleymane Pineda MDPotassium [Moles/Vol]4.0 mmol/LNormal3.7-5.3MEast [facility] HospitalComment on above:Performed By: #### CMPX, CDP #### [address] [place] [address] Enhanced Environmental Operator: MAGED Elderrotein [Mass/Vol]6.7 g/dLNormal6.4-8.3MMemorial HospitalComment on above:Performed By: #### CMPX, CDP #### [address] [place] [address] Enhanced Environmental Operator: ALEX Elderodium [Moles/Vol]139 mmol/OKepkjg390-562XddmuKettering Health – Soin Medical CenterComment on above:Performed By: #### CMPX, CDP #### [address] [place] [address] Enhanced Environmental Operator: ALEX Eldertaging:NormalKettering Health – Soin Medical CenterComment on above:Result Comment: Stage 1: Some kidney damage normal GFR Stage 2: Mild kidney damage GFR 60-89 Stage 3: Moderate kidney damage GFR 30-59 Stage 4: Severe kidney damage GFR 15-29 Stage 5: Severe kidney damage GFR <15 ESRD - chronic treatment by dialysis or transplantPerformed By: #### CMPX, CDP #### [address] [place] [address] Enhanced Environmental Operator: Souleymane Pineda MDUrea nitrogen [Mass/Vol]9 mg/dLNormal6-20[facility] Medical CenterComment on above:Performed By: #### CMPX, CDP #### [address] [place] [address] Enhanced Environmental Operator: CLARK Elderomprehensive Metabolic Panel w/ Reflex to MG Ordered By: Keven Ching on [id number] [Mass/Vol]4 g/dL3.5 - 5.2 g/dL [facility] Work Phone: albumin/Globulin [Mass ratio]1.5 {ratio}[facility] Work Phone: BLP (Bld) [Catalytic activity/Vol]90 U/L35 - 104 U/L [facility] [employer] Work Phone: RLT [Catalytic activity/Vol]40 U/LHigh5 - 33 U/LMselect [facility] specialty hospital [facility] [employer] Work Phone: Vnion gap [Moles/Vol]11 mmol/L9 - 17 mmol/LMselect medical specialty hospital [facility] southy [employer] Work Phone: MST [Catalytic activity/Vol]19 U/L<32[facility] [employer] Work Phone: Zilirubin [Mass/Vol]mg/dLLow0.3 - 1.2 mg/dLMet[facility]health [facility] [employer] Work Phone: Ualcium [Mass/Vol]8.9 mg/dL8.6 - 10.4 mg/dLMet[facility]health [facility] [employer] Work Phone: Jhloride [Moles/Vol]104 mmol/L98 - 107 mmol/LMohiohealth [facility] Work Phone: YO2 [Moles/Vol]24 mmol/L20 - 31 mmol/LMohiohealth [employer] Work Phone: creatinine [Mass/Vol]0.6 mg/dL0.50 - 0.90 mg/dLMet[facility] [employer] Phone: Free PSA/Total PSA [Mass fraction]6.7 g/dL6.4 - 8.3 g/dLMet[facility] [employer] Work Phone: GFR >60>60 mL/minMet[facility]health Par[facility] Center [employer] Work Phone: GFR Non->60>60 mL/minMet[facility]health Par[facility] Center [employer] Work Phone: Glucose [Mass/Vol]91 mg/dL70 - 99 mg/dLMet[facility]health [facility] [employer] Work Phone: Interpretation and review of laboratory results AbnormalMetrohealth Par[facility] Center [employer] Work Phone: potassium [Moles/Vol]4.0 mmol/L3.7 - 5.3 mmol/LMohiohealth [employer] Phone: sodium [Moles/Vol]139 mmol/L135 - 144 mmol/LMohiohealth [employer] Work Phone: Urea nitrogen (BldV) [Mass/Vol]9 mg/dL6 - 20 mg/dL [facility] [employer] Phone: Urea nitrogen/Creatinine (Bld) [Mass ratio]15[facility] HospitalK[facility] Work Phone: [facility] [employer] Phone: laboratory - Chemistry and Chemistry - challenge Ordered By: Keven Ching on [id number]/1.73 sq M.predicted MDRD (S/P/Bld) [Vol rate/Area][facility] Phone: comment on above:Average GFR for 20-29 years old: 116 mL/min/1.73sq m Chronic Kidney Disease: <60 mL/min/1.73sq m Kidney failure: <15 mL/min/1.73sq m eGFR calculated using average adult body mass. Additional eGFR calculator available at: http://www.BeOnDesk/multiple_crcl_2011.htm Stage 1: Some kidney damage normal GFR Stage 2: Mild kidney damage GFR 60-89 Stage 3: Moderate kidney damage GFR 30-59 Stage 4: Severe kidney damage GFR 15-29 Stage 5: Severe kidney damage GFR <15 ESRD - chronic treatment by dialysis or transplant Vital Signs Date TimeVital SignValuePerforming OjnmrecvzSydggbwg61-90-6257 10:010400Body vbcrej314.9 cmAssumpta Gridle.in POLICE INSPECTOR-LAUNCH OPERATOR Work Phone: [facility]10-31-2025 10:010400Body mass index (BMI) [Ratio]53.58 kg/f5Ahtvillu hybrisesthela POLICE INSPECTOR-LAUNCH OPERATOR Work Phone: [facility]10-31-2025 10:01-0400Body ngofgpkqaed46.9 [degF]Assumpta [employer] [place] [employer] Work Phone: [facility]10-31-2025 10:01-0400Body ypeuhq887.55 kgAssumpta Raul HECK-FADY Work Phone: [facility]10-31-2025 10:01-0400Diastolic blood mkeahluq37 mm[Hg]Assumpta Raul HECK-FADY Work Phone: [address] [place], [place] [address]10-31-2025 10:01-0400Heart rate 112 /minAssumpta Raul SCHMITTN-FADY Work Phone: [facility]10-31-2025 10:01-5594LdV5% (BldA) [Mass fraction]96 %Assumpta Raul HECK-FADY Work Phone: [facility]10-31-2025 10:01-0400Systolic blood ozndqiec469 mm[Hg]Assumpta Raul MCCLAIN Work Phone: [facility]10-28-2025 09:30-0400Body bxkscu872.9 cmSopal Peña DO Work Phone: [phone] [employer] Nszmnu65-49-5426 09:30-0400Body mass index (BMI) [Ratio]52.49 kg/u0VsiokxVincent Peña DO Work Phone: [facility] [employer] Zenhnf13-61-8155 09:30-0400Body foekgj614 kgVincent Peña DO Work Phone: [phone] [employer] Nlmbpk16-35-7181 09:30-0400Diastolic blood uxjqzhgf73 mm[Hg]Vincent Peña DO Work Phone: [facility] [employer] Dbdmpf37-80-6149 09:30-0400Heart rate 79 /minSopal Peña DO Work Phone: [facility] [employer] Xparny19-06-9933 09:30-4675SaZ9% (BldA) [Mass fraction]99 %Vincent Peña DO Work Phone: [facility] [employer] Jqmpyy46-93-4450 09:30-0400Systolic blood kigbmizw823 mm[Hg]Vincent Peña DO Work Phone: [facility]10-21-2025 15:00-0400Body dgykqp109.9 cmCorine Gold MD Work Phone: [facility]10-21-2025 15:00-0400Body mass index (BMI) [Ratio]52.49 kg/k5XlkcnfrCorine Gold MD Work Phone: [phone]10-21-2025 15:00-0400Body awljjuvvgnn39.39 [degF]Corine Gold MD Work Phone: [facility]10-21-2025 15:00-0400Body alivtf931.01 kgCorine Gold MD Work Phone: [facility]10-21-2025 15:00-0400Diastolic blood uiyxwkrm21 mm[Hg]Corine Gold MD Work Phone: [facility]10-21-2025 15:00-0400Heart rate 77 /minCorine Gold MD Work Phone: [facility]10-21-2025 15:00-1505UrH8% (BldA) [Mass fraction]94 %Corine Gold MD Work Phone: [facility]10-21-2025 15:00-0400Systolic blood mm[Hg]Corine Gold MD Work Phone: [facility]09-04-2025 14:57-0400Body .4 cmAyvonne Hart APRN-LAUNCH OPERATOR Work Phone: [facility]09-04-2025 14:57-0400Body mass index (BMI) [Ratio]53.75 kg/z5UxxlzsnilMali Hart APRN-LAUNCH OPERATOR Work Phone: [facility]09-04-2025 14:57-0400Body veqxjkaddmc15.6 [degF]Mali Hart POLICE INSPECTOR-LAUNCH OPERATOR Work Phone: [facility]09-04-2025 14:57-0400Body ynearq048.83 kgAledc Hart POLICE INSPECTOR-LAUNCH OPERATOR Work Phone: [facility]09-04-2025 14:57-0400Diastolic blood mm[Hg]Mali Hart POLICE INSPECTOR-LAUNCH OPERATOR Work Phone: [facility]09-04-2025 14:57-0400Heart rate 97 /minAledc Hart POLICE INSPECTOR-LAUNCH OPERATOR Work Phone: [facility]09-04-2025 14:57-3396CgJ9% (BldA) [Mass fraction]95 %Mali Hart POLICE INSPECTOR-LAUNCH OPERATOR Work Phone: [facility]09-04-2025 14:57-0400Systolic blood mm[Hg]Mali Hart POLICE INSPECTOR-LAUNCH OPERATOR Work Phone: [facility]07-15-2025 10:33-0400Body mass index (BMI) [Ratio]50.73 kg/c2Mkfcf Roopa DO Work Phone: [facility] HospitalGrysvziknh44-00-4191 10:33-0400Body lftfmi794.79 kgCorey Roopa DO Work Phone: [facility] HospitalBgiumzuyhq48-18-0676 10:33-0400Diastolic blood hifwlsvd394 mm[Hg]Zay Roopa DO Work Phone: [facility] HospitalVpqicavqkx34-57-9651 10:33-0400Systolic blood chobeatt651 mm[Hg]Zay Roopa DO Work Phone: [facility] HospitalGmkcnftcro60-42-7057 12:12-0400Diastolic blood qupbsiqv39 mm[Hg]Infusion 5 Work Phone: [facility]06-13-2025 12:12-0400Heart rate97 /min Infusion 5 Work Phone: [facility]06-13-2025 12:12-0400Systolic blood njypyzlh202 mm[Hg]Infusion 5 Work Phone: [facility]06-12-2025 12:24-0400Diastolic blood mhxomwpv60 mm[Hg]Infusion 7 Work Phone: [facility]06-12-2025 12:24-0400Heart rate98 /min Infusion 7 Work Phone: [facility]06-12-2025 12:24-0400Systolic blood mm[Hg]Infusion 7 Work Phone: [facility]06-04-2025 15:07-0400Body vjaeml465.4 cmHalima Johns APRN-LAUNCH OPERATOR Work Phone: [facility]06-04-2025 15:07-0400Body mass index (BMI) [Ratio]49.76 kg/g4FdwfkkHalima Johns APRN-LAUNCH OPERATOR Work Phone: [facility]06-04-2025 15:07-0400Body bdpvexebafs41.01 [degF]Halima Johns APRN-LAUNCH OPERATOR Work Phone: [facility]06-04-2025 15:07-0400Body xiycuj453.58 kgHalima Johns APRN-LAUNCH OPERATOR Work Phone: [facility]06-04-2025 15:07-0400Diastolic blood nujmcnkn33 mm[Hg]Halima Johns APRN-LAUNCH OPERATOR Work Phone: [facility]06-04-2025 15:07-0400Heart rate 102 /minHalima Johns APRN-LAUNCH OPERATOR Work Phone: [facility]06-04-2025 15:07-4025FdH2% (BldA) [Mass fraction]99 %Halima Johns APRN-LAUNCH OPERATOR Work Phone: [facility]06-04-2025 15:07-0400Systolic blood lfydqizo563 mm[Hg]Halima Mirandaler POLICE INSPECTOR-LAUNCH OPERATOR Work Phone: [facility]05-12-2025 08:40-0400Body mass index (BMI) [Ratio]47.2 kg/x7Uobrc Roopa DO Work Phone: [facility] HospitalHwmiesbkpu31-54-7242 08:40-0400Body .31 kgCorevikas Roopa DO Work Phone: [facility] HospitalRebrigfpfn12-27-1160 08:40-0400Diastolic blood mlogartm38 mm[Hg]Zay Greero DO Work Phone: [facility] HospitalChgtpplnhf71-51-7227 08:40-0400Systolic blood ejjfkmqr232 mm[Hg]Zay Greero DO Work Phone: [facility] HospitalWjhvexwdov22-53-6509 09:43-0400Body mass index (BMI) [Ratio]46.09 kg/j3Wuyaofksharad Cotton DO Work Phone: [facility]04-01-2025 09:43-0400Body gyypypgkeog91.81 [degF]Rajinder Poncemimi DO Work Phone: [facility]04-01-2025 09:43-0400Body krizmc693.05 kgMicsharad Cotton DO Work Phone: [facility]04-01-2025 09:43-0400Diastolic blood wtxsyyqa08 mm[Hg]Rajinder Cotton DO Work Phone: [facility]04-01-2025 09:43-0400Heart rate 106 /minMicdeysipradeep Lula DO Work Phone: [facility]04-01-2025 09:43-5844XoG5% (BldA) [Mass fraction]98 %Rajinder Krismimi DO Work Phone: [facility]04-01-2025 09:43-0400Systolic blood marfvpxq688 mm[Hg]Rajinder Cotton DO Work Phone: [facility]03-26-2025 08:46-0400Body efjsfs993.4 cmCourmagdielyung Ye PA Work Phone: [facility]03-26-2025 08:46-0400Body mass index (BMI) [Ratio]46.36 kg/j0Xtjuulph Ye PA Work Phone: [facility]03-26-2025 08:46-0400Body ykdqvmrfnke52.1 [degF]Svetlana Ye PA Work Phone: [phone]03-26-2025 08:46-0400Body rcrsex748.68 kgCogisel Wallacene PA Work Phone: [phone]03-26-2025 08:46-0400Diastolic blood fzzpdiva93 mm[Hg]Svetlana Wallacene PA Work Phone: [facility]03-26-2025 08:46-0400Heart rate 98 /minCourtyung Wallacene PA Work Phone: [facility]03-26-2025 08:46-0400 Respiratory rate18 /minCourtney Ye PA Work Phone: [facility]03-26-2025 08:46-0970ZtF8% (BldA) [Mass fraction]98 %Svetlana Ye PA Work Phone: [facility]03-26-2025 08:46-0400Systolic blood duhhnpxz759 mm[Hg]Svetlana Wallacene PA Work Phone: [facility]03-13-2025 12:20-0400Diastolic blood uzwxpafi01 mm[Hg]Infusion 7 Work Phone: [facility]03-13-2025 12:20-0400Heart rate90 /min Infusion 7 Work Phone: [facility]03-13-2025 12:20-0400Systolic blood olhvvwnn692 mm[Hg]Infusion 7 Work Phone: [facility]03-06-2025 13:06-0500Body dicagz247.9 cmCorine Gold MD Work Phone: [facility]03-06-2025 13:06-0500Body mass index (BMI) [Ratio]44.01 kg/q6NokakoeCorine Gold MD Work Phone: [facility]03-06-2025 13:06-0500Body viflhivjqci05.7 [degF]Corine Gold MD Work Phone: [facility]03-06-2025 13:06-0500Body hooqxv704.6 kgCorine Gold MD Work Phone: [facility]03-06-2025 13:06-0500Diastolic blood exmvlvlj17 mm[Hg]Corine Gold MD Work Phone: [facility]03-06-2025 13:06-0500Heart rate 91 /minCorine Gold MD Work Phone: [facility]03-06-2025 13:06-1584SqS8% (BldA) [Mass fraction]98 %Corine Gold MD Work Phone: [facility]03-06-2025 13:06-0500Systolic blood xmkipuhu740 mm[Hg]Corine Gold MD Work Phone: [facility]03-05-2025 09:45-0500Body mass index (BMI) [Ratio]44.58 kg/z4TqkdmyizSvetlana HERNANDEZ Work Phone: [facility]03-05-2025 09:45-0500Body xfebjvmfaca91.9 [degF]Svetlana HERNANDEZ Work Phone: [facility]03-05-2025 09:45-0500Body yqrcnb883.96 kgCogisel HERNANDEZ Work Phone: [facility]03-05-2025 09:45-0500Diastolic blood ygnosogf22 mm[Hg]Svetlana Ye PA Work Phone: [phone]Pub[facility]ub Uityjp95-99-4228 09:45-0500Heart rate 99 /minCourtney Ye PA Work Phone: [phone] [place], [place] [address] Fpbchz04-14-2449 09:45-0497ZuJ4% (BldA) [Mass fraction]96 %Svetlana Ye PA Work Phone: [phone] [place], [place] [address] Ltrofe56-76-7205 09:45-0500Systolic blood dvfpmadb457 mm[Hg]Svetlana Ye PA Work Phone: [phone] [place], [place] [address] Chbhan85-38-9324 09:16-0500Diastolic blood hdnzhphu11 mm[Hg]Svetlana Ye PA Work Phone: [phone] [place], [place] [address] Rsuazi01-11-1354 09:16-0500Heart rate 88 /minCourtney Ye PA Work Phone: [phone] [place] [address] [employer] Haxhrt92-90-6456 09:16-0500 Respiratory rate16 /minCourtney Ye PA Work Phone: [address] [place], [place] [address] Oiibwb16-19-2492 09:16-2552UxS7% (BldA) [Mass fraction]96 %Svetlana Ye PA Work Phone: [phone] [place], [place] [address] Wgjtwj76-23-4601 09:16-0500Systolic blood wybilrxb242 mm[Hg]Svetlana Ye PA Work Phone: [phone] [place], [place] [address] Bvgbro12-74-3548 09:01-0500Body .9 cmCourtney Ye PA Work Phone: [phone] [place], [place] [address] Hetcsx76-60-2914 09:01-0500Body mass index (BMI) [Ratio]45.83 kg/a4Nntoayhu Ye PA Work Phone: [phone] [place], [place] [address] Gmssyw72-24-9018 09:01-0500Body .95 kgCourtney Ye PA Work Phone: [phone] [place], [place] 8501702-19-2025 11:09-0500Body nruoittltbx48.5 [degF]Milad Hernandez MD Work Phone: [phone] [place], [place] 8501702-19-2025 11:09-0500Diastolic blood wnxyewzm94 mm[Hg]Milad Hernandez MD Work Phone: 1(763)5-[address] [place], [place] 8501702-19-2025 11:09-0500Heart rate 90 /minMilad Hernandez MD Work Phone: 1([phone] [place], [place] 8501702-19-2025 11:09-0500 Respiratory rate18 /minMilad Hernandez MD Work Phone: [phone] [place], [place] 8501702-19-2025 11:09-2185UrF2% (BldA) [Mass fraction]95 %Milad Hernandez MD Work Phone: [phone] [place], [place] 8501702-19-2025 11:09-0500Systolic blood hieldhzg696 mm[Hg]Milad Hernandez MD Work Phone: [phone] [place], [place] 8501702-19-2025 05:25-0500Body mass index (BMI) [Ratio]47.4 kg/m2Milad Hernandez MD Work Phone: [phone]02-19-2025 05:25-0500Body fzzdsu849.8 kgMilad Hernandez MD Work Phone: [phone]02-11-2025 13:07-0500Body mass index (BMI) [Ratio]45.73 kg/r0Iuico Roopa DO Work Phone: [facility] HospitalPuposgpdby97-77-1314 13:07-0500Body gwmwka295.77 kgCorey Roopa DO Work Phone: [facility] HospitalGjiwbhewia47-99-7633 13:07-0500Diastolic blood mm[Hg]Zay Roopa DO Work Phone: [facility] HospitalTbisoeyxgs13-77-1939 13:07-0500Systolic blood znaiolty287 mm[Hg]Zay Blas DO Work Phone: [facility] HospitalLttfqothia41-76-9523 15:21-0500Body temperature 98.2 [degF][address]02-03-2025 15:21-0500Diastolic blood skjzvamb57 mm[Hg][address]02-03-2025 15:21-0500Heart rate86 /min[address]02-03-2025 15:21-0500Respiratory rate20 /min [address]02-03-2025 15:21-9040AqM0% (BldA) [Mass fraction] 99 %[address]02-03-2025 15:21-0500Systolic blood pressure 132 mm[Hg][address]02-03-2025 14:58-0500Body yknaek949.[address]02-03-2025 14:58-0500Body mass index (BMI) [Ratio] 45.57 kg/r2Lebve[address]02-03-2025 14:58-0500Body vlukcu732.[address]01-29-2025 12:15-0500Body uokrjp565.9 cmSopal Peña DO Work Phone: [facility]01-29-2025 12:15-0500Body mass index (BMI) [Ratio]45.54 kg/b2MjgqpfVincent Peña DO Work Phone: [facility]01-29-2025 12:15-0500Body rxrozq974.32 kgVincent Peña DO Work Phone: [facility]01-29-2025 12:15-0500Diastolic blood mm[Hg]Vincent Peña DO Work Phone: [facility]01-29-2025 12:15-0500Heart rate 97 /minSopal Peña DO Work Phone: [facility]01-29-2025 12:15-1792NxS9% (BldA) [Mass fraction]98 %Vincent Peña DO Work Phone: [facility]01-29-2025 12:15-0500Systolic blood vyoymmvp722 mm[Hg]Vincent Peña DO Work Phone: [facility]01-29-2025 12:07-0500Body msoeux268.[address] [place], [place] 9737101-29-2025 12:07-0500Body mass index (BMI) [Ratio]45.54 kg/m2Wlc [address] [place], [place] 9737101-29-2025 12:07-0500Body lxoylj741.[address] [place], [place] 9737101-27-2025 11:03-0500Body .9 Elena Martinez MD Work Phone: [phone]91[facility]01-27-2025 11:03-0500Body mass index (BMI) [Ratio]45.69 kg/y0IvwgikmtMundo Martinez MD Work Phone: [phone]01-27-2025 11:03-0500Body swcacnnqxwa98.9 [degF]Mundo Martinez MD Work Phone: [phone]01-27-2025 11:03-0500Body zfopwl788.68 kgMundo Martinez MD Work Phone: 1(780)5-[address] [place], [place] 85[address]01-27-2025 11:03-0500Heart rate 77 /Hanh Martinez MD Work Phone: [phone]01-27-2025 11:03-8177OjR3% (BldA) [Mass fraction]99 %Mundo Martinez MD Work Phone: [phone]01-15-2025 10:45-0500Body mass index (BMI) [Ratio]45.69 kg/c1Ytomm Roopa DO Work Phone: [facility] HospitalXhbreckkgy14-93-6997 10:45-0500Body bngfeh112.68 kgCorey Roopa DO Work Phone: [facility] HospitalIyvcqkdikx69-62-2074 10:45-0500Diastolic blood jyjgapdj90 mm[Hg]Zay Roopa DO Work Phone: 1(035)[facility] HospitalGxpkudngyj16-09-8710 10:45-0500Systolic blood nlvoxkrr878 mm[Hg]Zay Roopa DO Work Phone: 1(205)[facility] [place], [place] [address]Qdqngthwol44-04-8686 11:25-0500Body mass index (BMI) [Ratio]47.31 kg/b2Yjtay Roopa DO Work Phone: 1(062)[facility] [place], [place] [address]Pfabwpoqmp40-51-4664 11:25-0500Body anfekj370.58 kgCorey Roopa DO Work Phone: [phone])[facility] [place], [place] [address]Ijwcgynfmy89-94-1083 11:25-0500Diastolic blood fdequhyw44 mm[Hg]Zay Roopa DO Work Phone: 1(999)[facility] HospitalDivinohgzr36-38-0713 11:25-0500Systolic blood adxiezup566 mm[Hg]Zay Roopa DO Work Phone: [facility] HospitalPqvusdzzmz73-67-7183 10:38-0500Body mejopn265.9 cmLamont Blair MD Work Phone: [facility] HospitalLpkkoyvzuv31-84-9091 10:38-0500Body mass index (BMI) [Ratio]49.13 kg/m2Lamont Blair MD Work Phone: [facility] HospitalBtwpxkwonf40-01-1512 10:38-0500Body temperature 98.01 [degF]Lamont Blair MD Work Phone: [facility] HospitalZrbmwlsgqo68-84-6116 10:38-0500Body vbzhda893.94 kgLamont Blair MD Work Phone: [facility] HospitalPfoxecfcgf88-92-7804 10:38-0500Diastolic blood ghbootnn10 mm[Hg]Lamont Blair MD Work Phone: [facility] HospitalOwqeybwddj66-74-4346 10:38-0500Heart rmza975 /min Lamont Blair MD Work Phone: [facility] HospitalHyuhqypghv83-31-6972 10:38-0500Respiratory rate22 /minLamont Blair MD Work Phone: [facility] HospitalYicrsixwkn63-07-4946 10:38-1885MiR3% (BldA) [Mass fraction]90 %Lamont Blair MD Work Phone: [facility] HospitalXfpusaivlc09-70-7838 10:38-0500Systolic blood ybkjxvsx370 mm[Hg]Lamont Blair MD Work Phone: [facility] HospitalVckshxmgcc67-89-6837 13:28-0500Body hqvozr158.9 cmLamont Blair MD Work Phone: [facility] HospitalOnyckhctbm66-94-4896 13:28-0500Body mass index (BMI) [Ratio]52.91 kg/m2Lamont Blair MD Work Phone: [facility] HospitalRypacrwojl83-19-3096 13:28-0500Body temperature 98.4 [degF]Lamont Blair MD Work Phone: [facility] HospitalUbvnohqear69-84-1512 13:28-0500Body .01 kgLamont Blair MD Work Phone: [facility] HospitalMfsifzvcfj01-74-0092 13:28-0500Diastolic blood lpydhwdk96 mm[Hg]Lamont Blair MD Work Phone: [facility] HospitalHghnrfyvba38-30-8249 13:28-0500Heart aeyo728 /min Lamont Blair MD Work Phone: [facility] HospitalAmkcfhvjyv87-11-9334 13:28-0500Respiratory rate26 /minLamont Blair MD Work Phone: [facility]Xfyjgxgmjp38-83-6956 13:28-5734QlF4% (BldA) [Mass fraction]87 %Lamont Blair MD Work Phone: [facility]Lbnqecwipx75-03-5686 13:28-0500Systolic blood ozhgwcve815 mm[Hg]Lamont Blair MD Work Phone: [facility]Ymduifiefy70-84-1185 15:39-0500Diastolic blood jyzpthzx47 mm[Hg]Infusion 1 Work Phone: [facility]12-02-2024 15:39-0500Heart rate97 /min Infusion 1 Work Phone: [facility]12-02-2024 15:39-0500Systolic blood biylmgen875 mm[Hg]Infusion 1 Work Phone: [facility]12-02-2024 13:35-6047QiQ1% (BldA) [Mass fraction]97 %Infusion 1 Work Phone[facility]:on room [id number] 11:28-0500Diastolic blood kbqmqusn45 mm[Hg]Infusion 5 Work Phone: [phone]11-29-2024 11:28-0500Heart rate88 /min Infusion 5 Work Phone: [phone]11-29-2024 11:28-0500Systolic blood smarylzx957 mm[Hg]Infusion 5 Work Phone: [facility]11-29-2024 10:00-0500Body temperature 97.3 [degF]Infusion 5 Work Phone: [facility]11-27-2024 11:09-0500Diastolic blood kysrzbkc16 mm[Hg]Infusion 6 Work Phone: [phone]11-27-2024 11:09-0500Heart rate85 /min Infusion 6 Work Phone: [phone]11-27-2024 11:09-0500Systolic blood oydunrwa457 mm[Hg]Infusion 6 Work Phone: [facility]11-19-2024 09:18-0500Body uvwbxf227.9 cmLamont Blair MD Work Phone: [facility]Lszhyskyfa78-26-0995 09:18-0500Body mass index (BMI) [Ratio]53.66 kg/m2Lamont Blair MD Work Phone: [place] [address]Sscmoxclgd07-29-1172 09:18-0500Body temperature 98.01 [degF]Lamont Blair MD Work Phone: [place] [address]Ympbgiwihr18-88-1238 09:18-0500Body ndifzj727.82 kgLamont Blair MD Work Phone: [place] [address]Ubknvvxxje16-89-9410 09:18-0500Diastolic blood lonvyoak86 mm[Hg]Lamont Blair MD Work Phone: [phone] [place], [place] [address]Cmxpivldcl29-59-9580 09:18-0500Heart cjdx809 /min Lamont Blair MD Work Phone: [place] [address]Xzszlxcacr44-78-0660 09:18-0500Respiratory rate20 /minLamont Blair MD Work Phone: [place] [address]Inwkxcszxt76-20-3791 09:18-6279VgV6% (BldA) [Mass fraction]90 %Lamont Blair MD Work Phone: [place] [address]Xqlbsicqek82-20-0234 09:18-0500Systolic blood cergpyip391 mm[Hg]Lamont Blair MD Work Phone: [place] [address]Temvxaxnwl18-95-5101 13:38-0500Diastolic blood jbyzbnxr54 mm[Hg]Infusion 8 Work Phone: [facility]11-15-2024 13:38-0500Heart wfai141 /minInfusion 8 Work Phone: [facility]11-15-2024 13:38-0500Systolic blood mjwikqvm211 mm[Hg]Infusion 8 Work Phone: [facility]09-25-2024 09:05-0400Body gvltoq278.9 cmLamont Blair MD Work Phone: [facility] HospitalHqphtqpesm49-07-3791 09:05-0400Body mass index (BMI) [Ratio]51.58 kg/m2Lamont Blair MD Work Phone: [facility] HospitalGsigxlctjr53-74-7358 09:05-0400Body temperature 97.81 [degF]Lamont Blair MD Work Phone: [facility] HospitalEyjqlwshep65-28-1110 09:05-0400Body meaehx746.83 kgLamont Blair MD Work Phone: [facility] HospitalBuyqapdryx66-66-9951 09:05-0400Diastolic blood mm[Hg]Lamont Blair MD Work Phone: [facility] HospitalKaafktusiq32-16-5122 09:05-0400Heart rate60 /min Lamont Blair MD Work Phone: [facility] HospitalGlegyfqsso46-60-0514 09:05-0400Respiratory rate24 /minLamont Blair MD Work Phone: [facility] HospitalCoshcsenfu10-34-0442 09:05-0400Systolic blood sbirqdpo036 mm[Hg]Lamont Blair MD Work Phone: [facility] HospitalFbiowlkuye39-81-4066 13:51-0400Diastolic blood hzyutvwc66 mm[Hg]Infusion 8 Work Phone: [facility]08-23-2024 13:51-0400Heart rate77 /min Infusion 8 Work Phone: [facility]08-23-2024 13:51-0400Systolic blood uwtmnrfo662 mm[Hg]Infusion 8 Work Phone: [facility]08-20-2024 09:25-0400Body bximyv438.9 cmLamont Blair MD Work Phone: [facility] HospitalEbyurhhwwu18-33-8237 09:25-0400Body mass index (BMI) [Ratio]48.94 kg/m2Lamont Blair MD Work Phone: [facility] CenterCelzoeedvc09-50-5186 09:25-0400Body temperature 97.5 [degF]Lamont Blair MD Work Phone: [place] [address]Hvczjdfgbw97-56-9766 09:25-0400Body .48 kgLamont Blair MD Work Phone: [facility] HospitalNguswteogr40-80-2605 09:25-0400Diastolic blood eapvpwae91 mm[Hg]Lamont Blair MD Work Phone: [facility] HospitalMsetfdelmd28-02-8465 09:25-0400Heart rate88 /min Lamont Blair MD Work Phone: [facility] HospitalUkiguqwigw14-36-9688 09:25-0400Respiratory rate22 /minLamont Blair MD Work Phone: [facility] HospitalKrzbenptue77-99-6603 09:25-1819YmN1% (BldA) [Mass fraction]95 %Lamont Blair MD Work Phone: [facility] HospitalApxpfftiyf32-20-4104 09:25-0400Systolic blood ijjmaugb489 mm[Hg]Lamont Blair MD Work Phone: [facility] HospitalWjwhdrwyve21-66-4119 14:22-0400Body ebhuli998.4 cmSagar Green POLICE INSPECTOR.LAUNCH OPERATOR Work Phone: [facility]07-30-2024 14:22-0400Body mass index (BMI) [Ratio]47.33 kg/m2Sagar Green POLICE INSPECTOR.LAUNCH OPERATOR Work Phone: [facility]07-30-2024 14:22-0400Body temperature 99.1 [degF]Cameroni Green POLICE INSPECTOR.LAUNCH OPERATOR Work Phone: [facility]07-30-2024 14:22-0400Body jfcluh333.75 kgSagar Green POLICE INSPECTOR.LAUNCH OPERATOR Work Phone: [facility]07-30-2024 14:22-0400Diastolic blood mm[Hg]Cameroni Green POLICE INSPECTOR.LAUNCH OPERATOR Work Phone: [facility]07-30-2024 14:22-0400Heart rate80 /min Sagar Green POLICE INSPECTOR.LAUNCH OPERATOR Work Phone: [facility]07-30-2024 14:22-0400Systolic blood zfhalvbq819 mm[Hg]Sagar Barth APRN.LAUNCH OPERATOR Work Phone: [facility]06-28-2024 09:26-0400Diastolic blood diiqhmol17 mm[Hg]Curtis Lepe PA-C Work Phone: [facility] HospitalConhye84-70-8095 09:26-0400Heart rate88 /min Curtis Lepe PA-C Work Phone: c[facility] HospitalDieail66-73-6083 09:26-0225BaW2% (BldA) [Mass fraction]97 %Curtis Lepe PA-C Work Phone: c[facility] HospitalXwcqtw57-17-3900 09:26-0400Systolic blood mm[Hg]Curtis Lepe PA-C Work Phone: c[facility] HospitalGyetwz24-81-7758 11:08-0500Diastolic blood xwytdolq39 mm[Hg]Infusion 7 Work Phone: [facility]02-23-2024 11:08-0500Heart rate84 /min Infusion 7 Work Phone: [facility]02-23-2024 11:08-0500Systolic blood dgzwaydr344 mm[Hg]Infusion 7 Work Phone: [facility]02-22-2024 10:50-0500Diastolic blood ndckarxd58 mm[Hg]Infusion 7 Work Phone: [place] [address]-22-2024 10:50-0500Heart rate86 /min Infusion 7 Work Phone: [facility]02-22-2024 10:50-0500Systolic blood liziugjm983 mm[Hg]Infusion 7 Work Phone: [facility]02-21-2024 13:45-0500Diastolic blood zvakfubd45 mm[Hg]Infusion 7 Work Phone: [place] [address]-21-2024 13:45-0500Heart rate79 /min Infusion 7 Work Phone: [facility]02-21-2024 13:45-0500Systolic blood iqztixpn853 mm[Hg]Infusion 7 Work Phone: [facility]09-22-2023 10:55-0400Diastolic blood mm[Hg]Infusion 8 Work Phone: [facility]09-22-2023 10:55-0400Heart rate83 /min Infusion 8 Work Phone: [facility]09-22-2023 10:55-0400Systolic blood ipzyzgxv640 mm[Hg]Infusion 8 Work Phone: [facility]06-08-2023 10:15-0400Diastolic blood tzgoipej00 mm[Hg]Infusion 8 Work Phone: [facility]06-08-2023 10:15-0400Heart rate80 /min Infusion 8 Work Phone: [facility]06-08-2023 10:15-0400Systolic blood zsrrdpdy999 mm[Hg]Infusion 8 Work Phone: [facility]10-14-2022 09:47-0400Diastolic blood bfdvgetb20 mm[Hg]Jesse Borrego MD Work Phone: [facility]10-14-2022 09:47-0400Heart rate66 /min Jesse Borrego MD Work Phone: [facility]10-14-2022 09:47-1430ZmA6% (BldA) [Mass fraction]100 %Jesse Borrego MD Work Phone: [facility]10-14-2022 09:47-0400Systolic blood ewrjabgn059 mm[Hg]Jesse Borrego MD Work Phone: [facility]08-31-2022 12:00-0400Diastolic blood scegtrqr661 mm[Hg]Lucila Mota MD Work Phone: [facility]08-31-2022 12:00-0400Heart rate85 /minEncompass Braintree Rehabilitation Hospitalradha Mota MD Work Phone: [facility]ITALPingThings [facility] RZZSBU45-58-5638 12:00-0400 Respiratory rate12 /Anastasia Mota MD Work Phone: [facility]08-31-2022 12:00-3723DuX9% (BldA) [Mass fraction]98 %Lucila Mota MD Work Phone: [facility]08-31-2022 12:00-0400Systolic blood cywszdud405 mm[Hg]Lucila Mota MD Work Phone: [facility]08-31-2022 08:00-0400Body lqqoislfsuu11.2 [degF]Lucila Mota MD Work Phone: [facility]11-04-2021 19:36-0400Body qqdnfxmaehu24 [degF]Keven Ching DO Work Phone: [facility] Work Phone: 1(334) 793-409011-04-2021 19:36-0400Diastolic blood oxisticd79 mm[Hg] Keven Ching DO Work Phone: [employer] Work Phone: 1(777) 901-510211-04-2021 19:36-0400Heart zszv991 /minAmanda Joshua DO Work Phone: [employer] Work Phone: 1(911) 427-766211-04-2021 19:36-0400Respiratory rate20 /minAmanda Joshua DO Work Phone: [facility] Work Phone: 1(743) 138-515411-04-2021 19:36-3863MaQ5% (BldA) [Mass fraction]96 % Keven Ching DO Work Phone: [employer] Work Phone: 1([phone]) [phone] 19:36-0400Systolic blood krusjrri661 mm[Hg] Keven Ching DO Work Phone: [employer] Work Phone: Encounters Encounter DateEncounter TypeCare ProviderFacilityStart: 12-20-2024 End: 10-99-2278Uieojh outpatient visit 25 minutesAssumpta Radha Nnaji POLICE INSPECTOR-LAUNCH OPERATOR Work Phone: [facility] Family MedicineComment on above: Moderate persistent asthma without complication (Primary Dx); Watery eyes; Seasonal allergic rhinitis, unspecified triggerStart: 12-17-2024 End: 14-59-4940Smvork outpatient visit 25 minutesVincent Peña DO Work Phone: [facility] Pulmonary/Sleep MedicineComment on above:Moderate persistent asthma without complication (Primary Dx); Gastroesophageal reflux disease without esophagitis; Environmental allergiesStart: 12-13-2024 End: 47-31-9313ermdjjdvzcWHEQQKT SCHAEFERFacility:[facility] Start: 12-12-2024 End: 74-07-7499Fjzzytsym encounterCorine Gold MD Work Phone: [facility] - [facility] Comment on above:Sleep Lab (Comp PSG/PAP)Start: 12-12-2024 End: 60-75-5117alwzonvfgpNEKUEvrpkwjd:[facility] Hospitaltart: 12-11-2024 End: 24-80-2143auplcwtwsrAVHD GREENFacility:[facility] Hospitaltart: 12-10-2024 End: 82-10-3707Itktse outpatient visit 25 minutesCorine Gold MD Work Phone: [facility] Family MedicineComment on above: JUAN DAVID (obstructive sleep apnea) (Primary Dx)Start: 12-09-2024 End: 13-98-6101ZjrxisZrtllc M Elston DO Work Phone: [facility] Pulmonary/Sleep MedicineComment on above:Moderate asthma with acute exacerbation, unspecified whether persistent Start: 39-64-6132oqmumscvhoGhycrfwsama AbdelazizFacility:[facility]ertart: 11-26-2024 End: 01-17-9141elshhogepoADWUSML SCHAEFERFacility:[facility] Start: 10-24-2024 End: 87-42-9823Proyzs outpatient visit 15 minutesAlexaluisa Hart POLICE INSPECTOR-LAUNCH OPERATOR Work Phone: [facility] Family MedicineComment on above: Left otitis media, unspecified otitis media type (Primary Dx); Mild asthma with exacerbation, unspecified whether persistentStart: 09-30-2024 End: 04-82-7166Emrngo Gabriel Peña DO Work Phone: [facility] Pulmonary/Sleep MedicineComment on above:Moderate persistent asthma, unspecified whether complicatedStart: 09-29-2024 End: 56-24-1439YscbazXxudpqq M Asif MD Work Phone: [facility] Family MedicineComment on above: Muscle spasmStart: 09-24-2024 End: 58-86-8362xtqlicyulqVATOSKK SCHAEFERFacility:[facility] Start: 09-03-2024 End: 84-74-0525Axypei flowsheetCorey Roopa DO Work Phone: [facility] BCP OBStart: 09-03-2024 End: 43-06-8480Tiiqha flowsheetCorey Roopa DO Work Phone: [facility] BCP OBStart: 09-03-2024 End: 88-30-7652Cxsixv outpatient visit 15 minutesCorey Roopa DO Work Phone: [facility] BCP OBComment on above:Hot flashes due to surgical menopauseStart: 09-03-2024 End: 70-28-2856dulplljzxePFKXR FAZIONot AvailableStart: 09-02-2024 End: 29-94-6971Efeoxj OnlyKoli Green POLICE INSPECTOR.LAUNCH OPERATOR Work Phone: [facility] [place] FHCComment on above:Intractable chronic migraine without aura and without status migrainosus (Primary Dx)Start: 08-30-2024 End: 49-16-1330Pubdvv OnlyKoli Green POLICE INSPECTOR.LAUNCH OPERATOR Work Phone: [facility] [place] FHCStart: 08-26-2024 End: 13-03-2239Jhezum LadiMali Hart POLICE INSPECTOR-LAUNCH OPERATOR Work Phone: [facility] Family MedicineComment on above: Allergic reaction, sequela (Primary Dx)Start: 08-16-2024 End: 83-88-2997aczwiytnzlUtrc Green APRN.LAUNCH OPERATOR Work Phone: [facility] [place] FHCComment on above:InfusionStart: 08-15-2024 End: 73-27-2661oudgdvkipwPovpsyg Schaefer PA-C Work Phone: NeurologyComment on above:Heads poundingStart: 08-05-2024 End: 94-54-1468Qpnusfukv encounterChelsea [facility] Home DeliveryComment on above:Insurance Authorization (Zavzpret 10MG/ACT solution); Zavzpret 10MG/ACT solutionStart: 08-02-2024 End: 15-19-1616Wlopcdr encounter procedureMajakub Lepe PA-C Work Phone: NeurologyComment on above:Intractable chronic migraine without aura and with status migrainosus (Primary Dx); Status migrainosusStart: 08-02-2024 End: 37-71-4668fyzzbhjhybSyopqizi Main Chair 5 Work Phone: NeurologyComment on above:Chronic migraine without aura, with intractable migraine, so stated, with status migrainosus (Primary Dx); Intractable chronic migraine without aura and with status migrainosusStart: 08-01-2024 End: 19-80-6483vidlnwnyztFqtfwkxp Main Chair 7 Work Phone: NeurologyComment on above:Intractable chronic migraine without aura and without status migrainosus (Primary Dx)Start: 07-24-2024 End: 16-78-7827Svwrra outpatient visit 25 minutesHalima Johns APRN-LAUNCH OPERATOR Work Phone: [facility] Family MedicineComment on above: Eye infection, bilateral (Primary Dx); Ingrown nail of great toeStart: 07-05-2024 End: 49-81-9828Nljrakvfmqcub procedureJoLehigh Valley Hospital - Schuylkill East Norwegian [facility] ClinicComment on above:Received BHP FAXStart: 07-05-2024 End: 01-53-6189Wfkxynyek encounterMajakub Lepe PA-C Work Phone: NeurologyComment on above:Infusion (Headache infusion scheduling)Start: 07-04-2024 End: 12-77-5473Qutnhnrx HealthMattmaximilian Lepe PA-C Work Phone: NeurologyComment on above:Status migrainosus (Primary Dx); Intractable chronic migraine without aura and without status migrainosus; Generalized anxiety disorder; Chronic migraine without aura, with intractable migraine, so stated, with status migrainosus; Intractable chronic migraine without aura and with status migrainosusStart: 07-01-2024 End: 65-73-3026Zmhbcl flowsheetCorey Roopa DO Work Phone: [facility] BCP OBStart: 07-01-2024 End: 69-36-3085Rkwfzi flowsheetCorey Roopa DO Work Phone: [facility] BCP OBStart: 07-01-2024 End: 02-73-5058Cfpbhb outpatient visit 15 minutesCorey Roopa DO Work Phone: [facility] BCP OBComment on above:Yeast infection; BV (bacterial vaginosis); Low libido; Dyspareunia in femaleStart: 07-01-2024 End: 13-21-4648iidfcrtzqtFGHYS FAZIONot AvailableStart: 06-25-2024 End: 08-06-8793Fqwihgxho encounterViktoria Walton MS, CGC Work Phone: Genetics ClinicComment on above:Genetic Testing Prior Authorization RequestStart: 06-11-2024 End: 62-51-9713jwkpwzvhcePXPZFQK M [facility] for Childrentart: 06-10-2024 End: 68-64-5684Jqxwbi OnlyViktoria Walton MS, CGC Work Phone: Genetics ClinicStart: 06-07-2024 End: 20-24-4168Ykwxwntca encounterGtramya Fernández JohnProMedica Call CenterStart: 06-06-2024 End: 48-12-7329Jignnv outpatient visit 25 minutesCorine Gold MD Work Phone: [facility] Family MedicineComment on above: Weight loss (Primary Dx); Moderate persistent asthma with acute exacerbation; Seasonal allergic rhinitis, unspecified triggerStart: 06-06-2024 End: 35-42-3010MkmfhfOcnjjip M Asif MD Work Phone: [facility] Family MedicineComment on above: Seasonal allergic rhinitis, unspecified triggerStart: 05-31-2024 End: 80-37-2405PirracVvbvShaw Barth APRN.CNP Work Phone: Neurology [facility] FHCComment on above:Refill RequestStart: 05-24-2024 End: 82-12-3448GwieosIbrowp M Elston DO Work Phone: [facility] Pulmonary/Sleep MedicineComment on above:Moderate persistent asthma, unspecified whether complicatedStart: 05-21-2024 End: 50-33-2014Nasjgr outpatient visit 15 minutesRajinder Cotton DO Work Phone: [facility] Family MedicineComment on above: Moderate persistent asthma with acute exacerbation (Primary Dx); Acute pansinusitis, recurrence not specified; Antibiotic-induced yeast infectionStart: 05-15-2024 End: 81-73-0503Xmupus follow up visit related to original Edgardo HERNANDEZ Work Phone: Joie Fern[facility]dez [facility] - Medical OncologyComment on above:S/P bilateral salpingo-oophorectomy (Primary Dx); Menopausal symptomsStart: 05-07-2024 End: 39-78-4349Swepvocck encounterAngely Cotton RN Work Phone: [facility] Home DeliveryComment on above: Insurance Authorization; ubrelvyStart: 05-03-2024 End: 17-05-5475Cxvicnkd [facility] Hospitalmaximilian Lepe PA-C Work Phone: NeurologyComment on above:Intractable chronic migraine without aura and with status migrainosus (Primary Dx); Nausea; Generalized anxiety disorderStart: 05-02-2024 End: 23-93-5006Ymovfj Martin HERNANDEZ Work Phone: [facility], A Department of [facility] HospitalComment on above:Postoperative infection, unspecified type, subsequent encounter (Primary Dx)Chronic migraine without aura, with intractable migraine, so stated, with status migrainosus (Primary Dx); Intractable chronic migraine without aura and with status migrainosus; Intractable chronic migraine without aura and without status migrainosusStart: 05-01-2024 End: 52-20-5742Mdooby Gabriel Peña DO Work Phone: [facility] Pulmonary/Sleep MedicineComment on above:Moderate persistent asthma, unspecified whether complicatedStart: 04-30-2024 End: 91-40-2265Uxymfonln encounterCaterina Smith CMAProMedica Physicians Family MedicineStart: 04-29-2024 End: 08-23-5281Hoxpgl OnlyMali MCCLAIN Work Phone: [facility] Family MedicineComment on above: Postoperative surgical complication involving genitourinary system associated with genitourinary procedure, unspecified complicationStart: 04-25-2024 End: 60-39-6849Wflwda outpatient new 45 minutesCorine Gold MD Work Phone: [facility] Family MedicineComment on above: Muscle spasm (Primary Dx); Fatigue due to depression; Nausea and vomiting, unspecified vomiting type; Mild persistent asthma without status asthmaticus without complication; Psychogenic nonepileptic seizureStart: 04-24-2024 End: 11-45-7186Twmfadwsvqxrw procedureCanraghu [facility] - Medical OncologyStart: 04-24-2024 End: 97-69-5612Gzamxl follow up visit related to original pxCourtney Ye PA Work Phone: [facility] Pr[facility] - Medical OncologyComment on above:Post-operative pain (Primary Dx)Start: 04-19-2024 End: 97-64-4276jznpyxnayxQnqm Green APRN.LAUNCH OPERATOR Work Phone: Neurology [facility] FHCComment on above:InfusionsStart: 04-16-2024 End: 76-05-1438Roysps flowsheetCorey Roopa DO Work Phone: [facility] BCP OBStart: 04-16-2024 End: 78-97-6192Uwwppv flowsheetCorey Roopa DO Work Phone: [facility] BCP OBStart: 04-16-2024 End: 50-57-0623Nldmndhhb Result EncounterGeneric External Data ProviderNOMS External Department UnsolicitedStart: 04-16-2024 End: 81-65-1743rakrljxgpaWZBHI FAZIONot AvailableStart: 04-16-2024 End: 10-88-9385Sidxopy encounter procedureCorey Roopa DO Work Phone: [facility] Work Phone: Start: 04-16-2024 End: 73-19-1088Hfufmtuh preventive med est patient 18-39 yrsCorey Roopa DO Work Phone: [facility] BCP OBComment on above:Well woman exam with routine gynecological examStart: 04-15-2024 End: 95-31-6536Ebfylk follow up visit related to original Edgardo HERNANDEZ Work Phone: [facility] of [facility] HospitalComment on above:Postoperative surgical complication involving genitourinary system associated with genitourinary procedure, unspecified complication (Primary Dx); Post-op pain; Sweating profusely; Menopausal symptoms; Nausea and vomiting, unspecified vomiting typeStart: 04-08-2024 End: 93-41-1264Dytpckhjl encounterMaleonora Ku [facility]ENTERPro[facility]ica [facility], A Department of [facility] - Dublintart: 04-08-2024 End: 32-92-1642Uapuzqxoth and management of inpatientDaconstantine Melton DO Work Phone: [facility] - GEN 6 AcuteComment on above:Postoperative surgical complication involving genitourinary system associated with genitourinary procedure, unspecified complication (Primary Dx) Start: 04-02-2024 End: 85-24-0843vkykxfvaquWASPH FAZIONot AvailableStart: 04-02-2024 End: 92-71-5389Vcgair outpatient visit 10 minutesCorey Roopa DO Work Phone: [facility] BCP OBComment on above:Visit for wound check; Yeast infectionStart: 04-01-2024 End: 40-13-7010Llbzkv Martin HERNANDEZ Work Phone: [facility] A [facility] of [facility] HospitalComment on above:S/P bilateral salpingo-oophorectomy Post-op pain (Primary Dx)Start: 03-25-2024 End: 98-90-9557Uxypqbp encounter statusMet[address]tart: 03-25-2024 End: 43-27-5389Yzjsfn Michelle Martinez MD Work Phone: [facility], A Department of [facility] HospitalComment on above:Preop testing (Primary Dx); Bilateral ovarian cystsStart: 03-21-2024 End: 12-37-2608Wblqepbmv encounterMundo Martinez MD Work Phone: [facility], A Department of [facility] HospitalComment on above:Other (Surgery questions)Start: 03-21-2024 End: 55-00-7430lhpxxmgacrXtjwLuis Barth APRN.CNP Work Phone: [facility] [place] FHCComment on above:Intractable chronic migraine without aura and without status migrainosus (Primary Dx)Start: 03-21-2024 End: 67-62-1568Tkcoczkxvsah consultation with patientKoli Green POLICE INSPECTOR.LAUNCH OPERATOR Work Phone: [facility] Centertart: 03-20-2024 End: 98-42-7302Vukwgk outpatient new 45 minutesVincent Peña DO Work Phone: [facility] Pulmonary/Sleep MedicineComment on above:Asthma, unspecified asthma severity, unspecified whether complicated, unspecified whether persistent (Primary Dx); Bilateral ovarian cysts; Moderate asthma with acute exacerbation, unspecified whether persistent; Encounter for preoperative pulmonary examination; Pulmonary nodule; Gastroesophageal reflux disease, unspecified whether esophagitis presentStart: 03-20-2024 End: 88-34-6930Bmwcmdkpuahg stateMundo Martinez MD Work Phone: [facility]PubNub [facility] Centertart: 03-20-2024 End: 28-46-3877Asbnir Michelle Martinez MD Work Phone: [facility] On[facility], A Department of [facility] HospitalComment on above:Bilateral ovarian cysts (Primary Dx); Moderate asthma with acute exacerbation, unspecified whether persistent; Encounter for preoperative pulmonary examinationAcute cough [R05.1] (Primary Dx) Start: 03-19-2024 End: 01-80-9960Qrvzgz Michelle Martinez MD Work Phone: [facility], A Department of [facility] HospitalComment on above:Bilateral ovarian cysts (Primary Dx); Preop testingStart: 03-19-2024 End: 77-79-7378Nkfkaqd encounter statusMundo Martinez MD Work Phone: [facility] HospitalPubNub SystemStart: 03-18-2024 End: 37-98-3532Nkhzqc outpatient new 60 minutesMundo Martinez MD Work Phone: [facility], A Department of [facility] HospitalComment on above:Cyst of right ovary (Primary Dx)Start: 03-06-2024 End: 30-41-8564Mrrcru outpatient visit 15 minutesCorey Roopa DO Work Phone: noms BCP OBComment on above:Cyst of right ovary; Pelvic pain in female; Pelvic peritoneal adhesions, femaleStart: 03-06-2024 End: 90-00-7451yryatnsfbuZCLRT FAZIONot AvailableStart: 02-28-2024 End: 41-26-1621Pngxek flowsheetCorey Roopa DO Work Phone: noms BCP OBStart: 02-28-2024 End: 13-54-5935Zmbrnj flowsheetCorey Roopa DO Work Phone: noms BCP OBStart: 02-28-2024 End: 10-82-6161ingprdekszPHAQI FAZIONot AvailableStart: 02-28-2024 End: 30-05-7690Nsafit outpatient visit 15 minutesCorey Roopa DO Work Phone: noms BCP OBComment on above:Pelvic pain in female; Complex ovarian cystStart: 02-26-2024 End: 46-85-2693Hycycqmmv encounterLamont Blair MD Work Phone: noms CI FMStart: 02-22-2024 End: 17-24-8924Dhqgapldg encounterSagar Barth APRN.CNP Work Phone: Neurology [facility] FHCComment on above:Insurance Authorization (Zolmitriptan)Start: 02-19-2024 End: 69-92-8994Dejnsjpnp Result EncounterGeneric External Data ProviderNOMS External Department UnsolicitedStart: 02-19-2024 End: 63-39-7257Wyjypezun Result EncounterGeneric External Data ProviderNOMS External Department UnsolicitedStart: 02-16-2024 End: 00-90-4214ghcbfpvgerZixnhqv J DittyFacility:[facility] Centertart: 02-09-2024 End: 18-03-6340Kicjyy outpatient visit 25 minutesLamont Blair MD Work Phone: noms CWM FMComment on above:Generalized abdominal pain (Primary Dx); Intractable nausea and vomiting; Mild persistent asthma with (acute) exacerbation (CMS/HCC)Start: 02-09-2024 End: 46-25-8755powoodxqbwKSEU NADERERNot AvailableStart: 01-31-2024 End: 60-83-0197Nbklrmphb Result EncounterGeneric External Data ProviderNOMS External Department UnsolicitedStart: 01-31-2024 End: 70-70-2469Csiioevir Result EncounterGeneric External Data ProviderNOMS External Department UnsolicitedStart: 01-29-2024 End: 37-25-4893Ehdghbrpj encounterSagar Barth APRN.CNP Work Phone: Neurology [facility] FHtart: 01-24-2024 End: 51-48-7751IitrhaYuli Blair MD Work Phone: NOJM CWM FMComment on above:COVID-19Start: 01-23-2024 End: 76-87-6394Zxkkqo Christina Blair MD Work Phone: NOMS CWM FMStart: 01-23-2024 End: 37-27-8399Odalcy Christina Blair MD Work Phone: NOMS CWM FMStart: 01-23-2024 End: 07-78-4323Nsgmqv outpatient visit 25 minutesLamont Blair MD Work Phone: NOMS CWM FMComment on above:Mild persistent asthma with (acute) exacerbation (CMS/HCC) (Primary Dx); Generalized edema; SOB (shortness of breath) on exertionStart: 01-23-2024 End: 06-72-2643xaomygasmgRBXA NADERERNot AvailableStart: 01-22-2024 End: 01-26-3478Imyjgvz encounter Juan J Shields APRN.CNP Work Phone: NeurologyComment on above:Chronic migraine without aura, with intractable migraine, so stated, with status migrainosus (Primary Dx) Start: 01-22-2024 End: 22-04-3979vhqonrplkgIlsuadbl Main Chair 1 Work Phone: NeurologyComment on above:Chronic migraine without aura, with intractable migraine, so stated, with status migrainosus (Primary Dx); Intractable chronic migraine without aura and with status migrainosusStart: 01-20-2024 End: 04-27-2851XasvqaFvxd Naderer MD Work Phone: NOMS CWM FMComment on above:Pain, dentalStart: 01-19-2024 End: 79-31-6636ghusghpnbkBdfjwewx Main Chair 5 Work Phone: NeurologyComment on above:Chronic migraine without aura, with intractable migraine, so stated, with status migrainosus (Primary Dx); Intractable chronic migraine without aura and with status migrainosusStart: 01-17-2024 End: 16-01-4695bwgumiyodyViyfjpwz Main Chair 6 Work Phone: NeurologyComment on above:Chronic migraine without aura, with intractable migraine, so stated, with status migrainosus (Primary Dx); Intractable chronic migraine without aura and with status migrainosusStart: 01-16-2024 End: 90-14-7484vyfqgqibcqZhnn Tab SEO Work Phone: Neu[facility] FHCComment on above:Please helpStart: 01-09-2024 End: 41-17-9569Fhzzjv Christina Blair MD Work Phone: NOMS CWM FMStart: 01-09-2024 End: 04-25-4716Wrlkdq Christina Blair MD Work Phone: NOMS CWM FMStart: 01-09-2024 End: 00-63-6482Mucnqf outpatient visit 25 minutesLamont Blair MD Work [...] not intractable (CMS/HCC); Pain, dentalStart: 01-09-2024 End: 35-35-3221qiaegooxfxNCCQ SUKHRMaia AvailableStart: 01-05-2024 End: 24-46-7329johpmijsbrQhhkqbtj Main Chair 8 Work Phone: NeurologyComment on above:Intractable chronic migraine without aura and without status migrainosus (Primary Dx)Start: 12-11-2023 End: 73-52-0502Yskwlj flowsheetCorey Roopa DO Work Phone: NOAV BCP OBStart: 12-11-2023 End: 79-11-1200Xjvbyo flowsheetCorey Roopa DO Work Phone: NOQW BCP OBStart: 12-11-2023 End: 75-54-5854xaxqlwmjimEUFEM FAZIONot AvailableStart: 12-05-2023 End: 09-45-2800tljftyermvSzcel J Stiffler APRN.LAUNCH OPERATOR Work Phone: NeurologyComment on above:Intractable chronic migraine without aura and without status migrainosus (Primary Dx)Start: 12-05-2023 End: 70-74-9113Dcyoharebjra consultation with Brendan Shabazz APRN.LAUNCH OPERATOR Work Phone: NeurologyStart: 11-15-2023 End: 35-44-2607Qezlhh Christina Blair MD Work Phone: NOMS CWM FMStart: 11-15-2023 End: 66-77-9731Zyyxtv Christina Blair MD Work Phone: NOMS CWM FMStart: 11-15-2023 End: 61-82-8370Ttemfx outpatient visit 15 minutesLamont Blair MD Work Phone: NOMS CWM FMComment on above:Acute bronchitis due to other specified organisms (Primary Dx); Mixed bipolar I disorder (CMS/HCC)Start: 11-15-2023 End: 35-74-2214gdyboesrnfHMJD NADERERNot AvailableStart: 11-10-2023 End: 91-25-2692QktxwyGczigrsRandy Lepe PA-C Work Phone: NeurologyComment on above:Refill RequestStart: 11-06-2023 End: 85-91-9403Vbdccv Jose Maria Mustafa NP Work Phone: NOMS CWM FMComment on above:Severe persistent asthma without complication (CMS/HCC)Start: 10-13-2023 End: 73-00-7150chdnubnbxnSgxmakya Main Chair 8 Work Phone: NeurologyComment on above:Intractable chronic migraine without aura and without status migrainosus (Primary Dx)Start: 10-10-2023 End: 79-80-6267Yqjkat flowsLou Blair MD Work Phone: NOMS CWM FMStart: 10-10-2023 End: 50-92-8244Mgzqof flowsLou Blair MD Work Phone: NOMS CWM FMStart: 10-10-2023 End: 42-65-7769Hztyzq outpatient visit 15 minutesLamont Blair MD Work Phone: NOMS CWM FMComment on above:Acute bronchitis due to other specified organisms (Primary Dx); Mild persistent asthma with (acute) exacerbation (CMS/HCC)Start: 10-10-2023 End: 28-55-5645yxaqsajntlNCUQ NADERERNot AvailableStart: 09-25-2023 End: 72-33-6918xakjqudlgzMRVZN FAZIONot AvailableStart: 09-19-2023 End: 09-65-9781Wrejxja encounter Malina Barth APRN.CNP Work Phone: Neu[facility] FHCComment on above:Intractable chronic migraine without aura and without status migrainosus (Primary Dx)Start: 08-18-2023 End: 36-42-4038Vjocert encounter procedureCurtis Lepe PA-C Work Phone: NeurologyComment on above:Intractable chronic migraine without aura and without status migrainosus (Primary Dx); Psychogenic nonepileptic seizureStart: 75-53-6035pqmjllmyrqVwauLuis Barth APRN.CNP Work Phone: [facility]Start: 48-01-0328Jxaixizaar hospital visit by Randolph Barth APRN.CNP Work Phone: Neurology [facility] FHCComment on above:Hospital visitStart: 52-46-6389kbnlkzsvnjZbemLuis Barth APRN.CNP Work Phone: [facility] LondonCComment on above:InjectionStart: 07-10-2023 End: 77-28-4349escklnqctfMjyuLuis Barth APRN.CNP Work Phone: Neu[facility] FHCComment on above:Intractable chronic migraine without aura and without status migrainosus (Primary Dx)Start: 07-10-2023 End: 93-72-2711Omaetbmyptvq consultation with Aditya Barth APRN.CNP Work Phone: Neurolog [facility] FHCStart: 93-90-8733gjnhzoaqvnXlderVarsha Shabazz APRN.CNP Work Phone: NeurologyComment on above:ConcernHeadacheStart: 04-14-2023 End: 73-05-6186amnzdtuvkwSthjzrhc Main Chair 7 Work Phone: NeurologyComment on above:Chronic migraine without aura, with intractable migraine, so stated, with status migrainosus (Primary Dx); Intractable chronic migraine without aura and with status migrainosusStart: 04-14-2023 End: 93-00-5709Rxpssdi encounter procedureSuzan Ivey APRN.CNP Work Phone: NeurologyComment on above:Intractable chronic migraine without aura and with status migrainosus (Primary Dx); Intractable chronic migraine without aura and without status migrainosusStart: 23-17-0904Hysrreygg encounterSagar Barth APRN.CNP Work Phone: NeurologyComment on above:Appointment (Patient currently receiving infusions for headache. She is interested in learning about reboot program. Please schedule patient for evaluation if appropriate to proceed.)Start: 04-13-2023 End: 32-72-6807flhdwhtvuiUdeuxxhi Main Chair 7 Work Phone: NeurologyComment on above:Chronic migraine without aura, with intractable migraine, so stated, with status migrainosus (Primary Dx); Intractable chronic migraine without aura and with status migrainosusStart: 04-12-2023 End: 09-97-9852Oeuljjo encounter Frank Ivey APRN.CNP Work Phone: NeurologyComment on above:Intractable chronic migraine without aura and with status migrainosus (Primary Dx)Start: 04-12-2023 End: 76-01-7567dcaggsgmelIayhkdpl Main Chair 7 Work Phone: NeurologyComment on above:Chronic migraine without aura, with intractable migraine, so stated, with status migrainosus (Primary Dx); Intractable chronic migraine without aura and with status migrainosusStart: 00-72-2248Utbbvigha encounterAngely Cotton RN Work Phone: [facility] Home DeliveryComment on above: Insurance Authorization (Aimovig 70MG/ML auto-injectors/)Start: 72-87-2151Ystuyj Sagar Barth APRN.CNP Work Phone: Neurology [facility] FHCComment on above:Refill RequestInfusion (HEADACHE INFUSIONS)Start: 26-44-8504OaxycoAcislLul Shabazz APRN.CNP Work Phone: NeurologyComment on above:Refill RequestStart: 11-11-2022 End: 15-87-0255lxrddxomkrNpfuzxky Main Chair 8 Work Phone: NeurologyComment on above:Intractable chronic migraine without aura and with status migrainosus (Primary Dx)Start: 11-10-2022 End: 39-73-5989vmavhnvcpjKqkwqVarsha Shabazz APRN.CNP Work Phone: NeurologyComment on above:Intractable chronic migraine without aura and with status migrainosus (Primary Dx)Nerve blockStart: 32-56-6325Tvruzhcgt encounterSuzan Ivey APRN.CNP Work Phone: NeurologyComment on above:InfusionStart: 11-10-2022 End: 70-89-1286Eiuadqomtcou consultation with Brendan Shabazz APRN.CNP Work Phone: ccf [facility] MAINStart: 41-29-7135vapdoftlre Suzan Ivey APRN.CNP Work Phone: NeurologyComment on above:BotoxStart: 04-79-1931Q-mail encounter from caregiverSuzan Ivey APRN.CNP Work Phone: ccf [facility] MAINStart: 66-22-1059Ulzblvdmw encounterAngely Cotton RN Work Phone: [facility] Home DeliveryComment on above: Insurance Authorization (Zomig 5MG nasal spray/)Start: 31-69-1728owwdueluohSxciLuis Barth APRN.CNP Work Phone: NEUR HEADACHE [facility] INDEPENDENCEComment on above:My apt Fridaystart: 67-18-3320kcrgxxctiaQwgwJuanjose Barth APRN.CNP Work Phone: cCF [facility] FHCStart: 20-74-6149Xnjofoa encounter procedureSagar Barth APRN.CNP Work Phone: NEUR HEADACHE [facility] INDEPENDENCEComment on above: AppointmentStart: 08-31-2022 End: 97-96-7497wnfopczlawYbrcJuanjose Barth APRN.CNP Work Phone: NeurologyComment on above:Chronic migraine w/o aura, not intractable, w/o stat migr (Primary Dx)Start: 08-31-2022 End: 95-99-8546Cefvotbrqgil consultation with Aditya Barth APRN.FADY Work Phone: cCF [facility] MAINStart: 21-00-0089dufbjstleh Sagar Barth APRN.LAUNCH OPERATOR Work Phone: NEUR HEADACHE [facility] INDEPENDENCEComment on above:Pain Start: 08-08-2022 End: 86-60-3522jjjebzhgbbOjquaub Samples Work Phone: NeurologyComment on above:Intractable chronic migraine without aura and with status migrainosus (Primary Dx)Start: 08-08-2022 End: 21-15-1415Nfoaixksaunz consultation with Jodi Borrego MD Work Phone: ccF [facility] MAINStart: 78-02-5759pmbvqcrlod Jesse Samples Work Phone: NeurologyComment on above:Name of medicationStart: 07-28-2022 End: 63-58-9619tnfpwbgmqqDtibnxje Main Chair 8 Work Phone: NeurologyComment on above:Intractable chronic migraine without aura and with status migrainosus (Primary Dx)Start: 07-21-2022 [address]ulatoryDR ZAY ROOPA .Facility:F8Bdgvm: 05-94-0120Pmplfsawq for other preprocedural examinationDR ZAY ROOPA .[facility] Companytart: 07-12-2022 End: 17-18-4485wljvpsykoqYV ZAY ROOPA .Facility:H0Kvmvr: 07-12-2022 End: 03-38-0313Rohaowgtj for other preprocedural examinationDR ZAY ROOPA . Facility:O1Tpvox: 20-47-3034cfdxushjnwNL-C SUZAN Paytoncility:[facility] Start: 12-86-2689Xgfporjoj encounterSagar Barth APRN.CNP Work Phone: NeurologyComment on above:Appointment (infusion)Start: 06-20-2022 End: 80-57-1024fsfdflrvyiVHSBI SAYFacility:G6Qdeuz: 06-19-2022 End: 70-22-7862upygignrsjVCRVDX RODRIGUEZ .Facility:T8Ashgy: 99-47-9157Ssnoyzvpn to establishmentStephen Samples Work Phone: NeurologyComment on above:AdmissionStart: 06-13-2022 ambulatoryStephen Samples Work Phone: [facility] IIIStart: 06-11-2022 End: 46-54-5135yfpmbgtwzgMLFTOLW RAPP .Facility:Q9Aaccn: 06-08-2022 End: 22-38-8748wzxrbgarrgEL CHELO PAULINO .Facility:L4Auosy: 06-07-2022 ambulatoryStephen Samples Work Phone: NeurologyComment on above:MigrainesStart: 05-23-2022 End: 34-34-7620xkzyizwkvyYMEOTII M MANONFacility:E1Cmzjh: 05-08-2022 End: 84-53-4812ntfpgwprdnQPGOCG DIAB .Facility:Q0Dbuje: 03-31-2022 End: 35-94-9824vrhuvdiddzLT DERIK R DANIELSFacility:Q0Jjvge: 01-14-2022 End: 76-50-2620ztkthbbprtSABOIFH D KATKOFacility:W5Szthk: 01-07-2022 End: 98-68-9337bbjgtlnjyiOUAWV PARKERFacility:H2Gxayc: 63-83-6490peqxecxndl Jesse Samples Work Phone: NeurologyComment on above:MedicationStart: 12-03-2021 End: 54-10-1855Iqvoskq encounter procedureStephen Samples Work Phone: NeurologyComment on above:Chronic migraine w/o aura, not intractable, w/o stat migr (Primary Dx)Start: 11-10-2021 End: 39-07-5192vzpepugoszTyutLibia Saldaña PA-C Work Phone: NeurologyComment on above:Seizure-like activity (HCC) (Primary Dx)Start: 11-10-2021 End: 15-17-4632Axfobjqatobl consultation with Farideh Saldaña PA-C Work Phone: ccf [facility] MAINStart: 02-19-6061rzxvopxrrlsilas Dolan MD, PhD Work Phone: ccf [facility] MAINStart: 05-27-3123Lmbvtgh encounter Mj Dolan MD, PhD Work Phone: NeurologyComment on above:Request Veido appointment Start: 13-11-7739rismqhyvhwDiyzo Ying MD, PhD Work Phone: ccf [facility] MAINStart: 21-82-6707Ysrtylo encounter Mj Dolan MD, PhD Work Phone: NeurologyComment on above:AppointmentStart: 11-08-2021 Telephone encounterTyrone Dolan MD, PhD Work Phone: NeurologyComment on above:OrdersStart: 11-04-2021 End: 99-41-2815oszfycdcdfCYRAT PARKERFacility:R7Lfrwp: 10-29-2021 End: 76-45-5744nwrrrernbsPyiwk Ying MD, PhD Work Phone: NeurologyComment on above:Psychogenic nonepileptic seizure (Primary Dx); Spells of trembling; Chronic intractable headache, unspecified headache typeStart: 10-29-2021 End: 78-56-9978Cjenxwxuwhyb consultation with Alvaro Dolan MD, PhD Work Phone: ccf [facility] MAINStart: 99-28-9540Ixjlmjl encounter Becka Storey MD Work Phone: NeurologyComment on above:Seizure-like activity (HCC) (Primary Dx)Start: 10-19-2021 End: 06-89-0627Lpqqyebaio and management of [facility] Centertart: 10-19-2021 End: 89-11-3649Hpcugalvgo and management of inpatientLucila Mota MD Work Phone: STVZ 1B Neuro ICUStart: 10-19-2021 End: 67-57-1858igxtpfgdxjJEULNB H FAWWADFacility:I7Khkqb: 10-07-2021 End: 60-45-4038bncqoxtmaoSQ ZAYVikas GREERO .Facility:N7Waegf: 10-06-2021 End: 08-30-5251vxftnmgcgaIIJYPGH D KATKOFacility:I3Dghnf: 10-03-2021 End: 38-44-4094zrdbtuyleaVWIHQ PARKERFacility:R2Eddlo: 10-01-2021 End: 26-18-3580Yubowzonsf and management of inpatientDR DERIK WEBERFacility:H1 Start: 47-83-0207Pkjvwwcqb for preprocedural laboratory examinationDR ZAY BLAS .[facility] HospitalStart: 09-29-2021 End: 56-65-4761kfsgherfgxOH ZAY GREERO .Facility:U6Gazsi: 09-29-2021 End: 07-81-9760Lpraihjuq for preprocedural laboratory examinationDR ZAY GREERO .Facility:V1Fcxke: 09-21-2021 End: 26-33-2890phkocvhzxnDK DERIK WEBERFacility:V6Ygovr: 09-14-2021 End: 28-63-6408jjwxvoeoukVX DERIK WEBERFacility:H2Uqhbh: 08-14-2021 End: 06-83-7259xxkhmhvstvDNQYXO RAUCHFacility:C6Bvvhb: 08-14-2021 End: 58-33-3289ifhdbfnaezTOGZEP RAUCHFacility:L6Vktjl: 12-24-2020 End: 47-95-6855Niiglrczv department patient visitDERIK KENYONdrakevikas [facility] Hospitaltart: 12-24-2020 End: 55-99-4749Mwcfvcsbh department patient visitJosetamela Joshua DO Work Phone: [facility] EDComment on above:Migraine without status migrainosus, not intractable, unspecified migraine type (Primary Dx)Start: 02-18-2020 End: 01-95-2948Tmpuvrjmp encounterImad Cordelia Work Phone: NeurologyComment on above:Future Appointment ([place], [place], [place]) Procedures DateProcedureProcedure DetailPerforming ClinicianStart: 34-25-8449Arphs depression screening assessmentAssumpta Raul POLICE INSPECTOR-LAUNCH OPERATOR Work Phone: Start: 93-91-4199Zlntc depression screening assessment Corine Gold MD Work Phone: Start: 10-68-3182Ukbyw depression screening assessment Halima Johns POLICE INSPECTOR-LAUNCH OPERATOR Work Phone: Start: 33-48-1512Cjiwh dip stick/tablet rgnt non-auto w/o micrscpCorey Roopa DO Work Phone: Start: 44-15-9748Yhowm depression screening assessment Corine Gold MD Work Phone: Start: 16-73-6124MQU,APTIMA HPV,AGE GDLNCorey Roopa DO Work Phone: Start: 31-81-2030Lionilqhfnyok metabolic panelAnnetta Rodriguez MD Work Phone: start: 38-49-1065Yiixo s aureus methicillin resist amp probe tqJaziel Crump MD Work Phone: Start: 63-66-5315Kufmi metabolic panel calcium total Katina Debra Mckayla DO Work Phone: start: 04-36-9444Bdu bact xcpt urine blood/stool aerobic Bárbara Toussaint MD Work Phone: Start: 46-28-5472Lx abdomen & pelvis w/contrast materialJohnirene Velazquez MD Work Phone: Start: 04-08-2024 End: 90-95-9881Ewrny metabolic panel calcium totalDaniel Compa Melton DO Work Phone: [phone]: 50-74-8466Zdzpwos function panelYordy Melton DO Work Phone: [phone]: 09-79-7037Etpqr dip stick/tablet rgnt auto w/o microscopyDaconstantine Melton DO Work Phone: Start: 73-06-9503Gwzoxyc bacterial quanttative colony count urineJosemaj Velazquez MD Work Phone: Start: 51-14-4745Prhkrjcvzf exam chest single view Rohan Velazquez MD Work Phone: Start: 00-01-6761QLQU/FLU A+B/RSV BY NAAT/MOLECULAR (M4RT COLLECTION TUBE)Rohan Velazquez MD Work Phone: Start: 09-04-5263Kyk routine ecg w/least 12 lds trcg only w/o i&Cheryl Velazquez MD Work Phone: Start: 04-08-2024 End: 90-76-1812Bbnep count complete auto&auto difrntl wbcMotim Dixon MD Work Phone: Start: 04-08-2024 End: 67-33-3148Vmxngsj bacterial blood aerobic w/id isolatesDaconstantine Melton DO Work Phone: Start: 77-37-1822Hzpnh depression screening assessment Svetlana HERNANDEZ Work Phone: Start: 01-07-0039Fxhsedhw screenMetro 3Start: 33-88-1055Zfpqk typing serologic Gabriela Martinez MD Work Phone: Start: 86-34-9388SVUNPEZK Tyson Martinez MD Work Phone: Start: 58-92-4854Kxs routine ecg w/least 12 lds trcg only w/o i&Verónica Martinez MD Work Phone: Start: 51-13-8195ZCMONJRQK FUNCTION TESTSopal Peña DO Work Phone: Start: 64-28-4753UY PELVIS W/ TRANSVAGINALGeneric External Data ProviderStart: 48-30-4274Dzbizpvy identified in Urine by Culture Generic External Data ProviderStart: 06-98-3546Dfabt depression screening assessmentMundo Martinez MD Work Phone: Start: 27-34-7264Pupge depression screening assessment Tyrone Dolan MD, PhD Work Phone: Start: 02-36-9397EDF VIDEO MONITORINGMaanupama Perez POLICE INSPECTOR - LAUNCH OPERATOR Work Phone: Start: 86-73-6127ECSIB METABOLIC PANEL W/ REFLEX TO MG FOR LOW KChan Rikki Mota MD Work Phone: Start: 98-15-9904Cmvki count complete auto&auto difrntl wbcMaanupama Perez POLICE INSPECTOR - LAUNCH OPERATOR Work Phone: Start: 08-51-1063IOKUXDPG PLATELET FRACTIONMaanupama Perez POLICE INSPECTOR - LAUNCH OPERATOR Work Phone: Start: 06-38-2261Dnkgd of lactateMaanupama Perez POLICE INSPECTOR - LAUNCH OPERATOR Work Phone: Start: 79-96-2999Vxr routine ecg w/least 12 lds w/i&r Lo Perez POLICE INSPECTOR - LAUNCH OPERATOR Work Phone: Start: 09-94-9120Mgi brain brain stem w/o w/contrast materialMaanupama Perez POLICE INSPECTOR - LAUNCH OPERATOR Work Phone: Start: 83-08-3029ZZAJGRLEUWL CARE EVALUATION ONLY Lo Perez POLICE INSPECTOR - LAUNCH OPERATOR Work Phone: Start: 49-60-1556Puacsfyii of Bilateral Fallopian Tubes, Open ApproachINGRID BRICE .Start: 56-20-0598Jbkzpkrto of Uterus, Open ApproachINGRID BRICE .Start: 41-86-7358Vkryq count complete auto&auto difrntl wbcKeven Ching DO Work Phone: Start: 77-03-9896Sl head/brain w/o contrast material Keveneduardo Ching DO Work Phone: Plan of Treatment DateCare ActivityDetailAuthorStart: 98-66-8910Ozuyg BMI ScreeningAdult BMI ScreeningSumma Health [facility] SystemStart: 93-02-2853Hikoxyjhpl ScreeningDepression ScreeningBrecksville VA [facility]ille Hospitalca [facility] SystemStart: 05-06-9699Rbnlxsy ScreeningTobacco ScreeningBrecksville VA / [facility]ille Hospitalca [facility] SystemStart: 90-77-2918Eoeau BMI ScreeningAdult BMI ScreeningBrecksville [facility] / [facility] Hospitalca [facility] SystemStart: 16-38-5525Bmrlxex ScreeningTobacco ScreeningBrecksville [facility] Hospitalca [facility] SystemStart: 01-51-3660Ghpzu BMI ScreeningAdult BMI ScreeningBrecksville [facility] Hospitalca [facility] SystemStart: 87-25-2445Hkteugwaud ScreeningDepression ScreeningSumma [facility] SystemStart: 94-62-5846Srnsyjz ScreeningTobacco ScreeningSumma Health [facility] SystemStart: 02-66-2838Lsxqm BMI ScreeningAdult BMI ScreeningBrecksville [facility] Hospitalca [facility] SystemStart: 02-08-2146Nikub BMI ScreeningAdult BMI ScreeningBrecksville [facility] Hospitalca [facility] SystemStart: 94-28-6795Gvkbfrv ScreeningTobacco ScreeningSumma Health [facility] SystemStart: 41-33-4481RWoP,Tdap and Td Vaccines (7 - Td or Tdap)DTaP,Tdap and Td Vaccines (7 - Td or Tdap)[facility] Start: 01-56-1562SSnY/Tdap/Td vaccine (7 - Td or Tdap)DTaP/Tdap/Td vaccine (7 - Td or Tdap)[facility]ITALStart: 01-29-5978Oxwtf microalbumin profile [facility] Hospitaltart: 42-86-3752Ngdwm BMI ScreeningAdult BMI ScreeningSumma Health [facility] SystemStart: 65-15-6090Dxzzypaokb ScreeningDepression ScreeningSumma Health [facility] SystemStart: 51-78-8057Iwgkeqn ScreeningTobacco ScreeningBrecksville [facility] Hospitalca [facility] SystemStart: 07-86-8647Twulnch ScreeningTobacco ScreeningBrecksville [facility] Hospitalca [facility] SystemStart: 14-44-9868Lcykk BMI ScreeningAdult BMI ScreeningProWooster Community Hospitalca [facility] SystemStart: 00-14-1793Bozzjzt ScreeningTobacco ScreeningKettering Health [facility] Start: 69-77-9389Vztis BMI ScreeningAdult BMI ScreeningBrecksville [facility] Hospitalca [facility] Start: 74-69-3144Ofzrjjg ScreeningTobacco ScreeningBrecksville [facility] Hospitalca [facility] SystemStart: 49-09-3313Betzv BMI ScreeningAdult BMI ScreeningBrecksville [facility] Hospitalca [facility] SystemStart: 47-96-4620Xndxfzdzxa ScreeningDepression ScreeningBrecksville [facility] Hospitalca [facility] SystemStart: 88-45-1823Lmrveqp ScreeningTobacco ScreeningBrecksville VA / Crille Hospitalca [facility] SystemStart: 83-68-0130Bdeka BMI ScreeningAdult BMI ScreeningBrecksville VA / Crille Hospitalca [facility] SystemStart: 72-95-8957Xpspf BMI ScreeningAdult BMI ScreeningBrecksville VA / [facility] Hospitalca [facility] SystemStart: 83-78-6810Xfwaulfcth ScreeningDepression ScreeningSum[facility] SystemStart: 08-78-0261Gamxqse ScreeningTobacco ScreeningSumma Health [facility] SystemStart: 48-75-1198Gzuaz BMI ScreeningAdult BMI ScreeningBrecksville [facility] Hospitalca [facility] SystemStart: 38-33-4428Cdkuckx ScreeningTobacco ScreeningBrecksville VA / [facility] Hospitalca [facility] SystemStart: 60-74-5750Bzptg BMI ScreeningAdult BMI ScreeningCritical access hospitaltart: 56-20-0807Zoijufw ScreeningTobacco ScreeningCritical access hospitaltart: 03-25-2025 End: 56-64-2087Noydjuq encounter idqtmmtkj45/03/2026 9:45 AM EST Office Visit [facility] [address] [place] [phone] Vincent Peña DO [address] [address] [facility]/Sleep MedicineStart: 36-61-5948Glgcm BMI ScreeningAdult BMI Screening [facility] SystemStart: 76-20-0848Wphafgh ScreeningTobacco Screening [facility] SystemStart: 73-65-3883Mgqmd BMI ScreeningAdult BMI Screening [facility] SystemStart: 03-18-1023Osxfufu ScreeningTobacco Screening [facility] SystemStart: 02-27-2025 End: 49-79-5444Bjivalmd Drmdcny0302/27/2025 8:00 PM EST Clinical Support [facility] Sleep Disorders [address] [place] [phone] Corine Gold MD [address] [place] [address] [facility] Sleep DisordersStart: 01-30-2025 End: 85-38-4729Wlwvpjtn Ydzmpsg5201/30/2025 8:00 PM EST Clinical Support [facility] Sleep [facility] [address] [place] [phone] Corine Gold MD [address] [place] [address] [facility] Sleep DisordersStart: 01-02-2025 End: 89-80-1715Jzztpfq encounter ykpeumqmn95/13/2025 11:15 AM EST Office Visit [facility] [address] [place] [phone] Corine Gold MD [address] [place] [address] [facility] MedicineStart: 12-17-2024 End: 74-92-4820Elvnnxr encounter jehyhapbk32/28/2025 9:30 AM EDT Office Visit [facility] [address] [address] Vincent Peña DO [address] [address] [facility]/Sleep MedicineStart: 12-10-2024 End: 94-97-8873Pokhshf encounter agfhagclo57/21/2025 2:30 PM EDT Office Visit [facility] [address] [place] [address] Corine Gold MD [address], [place], [place] [phone] [facility] MedicineStart: 12-10-2024 End: 81-66-7126Cskcvylbielyvfl 4 or more parameters with PAP titration Polysomnography 4 or more parameters with PAP titration Sleep Center Routine JUAN DAVID (obstructive sleepapnea) Expected: 12/10/2024 (Approximate), Expires: 12/10/2025[facility] SystemComment on above:Expected: 12/10/2024 (Approximate), Expires: 12/10/2025Start: 12-10-2024 End: 93-34-3503QVW DiagnosticPSG Diagnostic Sleep Center Routine JUAN DAVID (obstructive sleep apnea) Expected: 12/10/2024 (Approximate), Expires: 12/10/2025[facility] SystemComment on above:Expected: 12/10/2024 (Approximate), Expires: 12/10/2025Start: 12-10-2024 End: 17-21-4325WKPT-CoV-2 (COVID-19) RNA [Presence] in Respiratory specimen by SAURABH with probe detectionSARS COV 2 (COVID-19) Microbiology Routine JUAN DAVID (obstructive sleep apnea) Expected: 12/10/2024 (Approximate), Expires: 03/12/2025[facility] Work Phone: Comment on above:Expected: 12/10/2024 (Approximate), Expires: 03/12/2025Start: 10-25-2024 End: 30-96-1134tlebmoguho09/05/2025 1:30 PM EDT Infusion Center Neurology [address] [place] [address] VyeptiNeurologyComment on above: VyeptiStart: 88-79-7744Lpjrvpszm vaccinationSumma Health [facility] SystemStart: 10-15-2024 End: 69-87-1395Iktkeeq encounter byavajqoq16/26/2025 8:10 AM EDT Office Visit [facility] [address] [place] [address] Zay Blas, [address] [place] [address] [facility] OBStart: 09-24-2024 End: 51-03-5152nozvsytdkl99/05/2025 10:00 AM EDT [facility] Neurology [address] [place] [address] Curtis Lepe PA-C [address] [place], [place] [phone] Head ache controlNeurologyComment on above:Head ache controlStart: 09-03-2024 End: 74-94-2405Avqgtbh encounter osxidrlkw83/15/2025 10:20 AM EDT Office Visit [facility] [address] [facility] [phone] Zay Blas, [address] [place] [address] [facility] OBComment on above:ArrivedStart: 08-20-2024 End: 01-40-4498Qczemzn encounter vfadqnrhj41/01/2025 9:15 AM EDT Office Visit Neurology [address] [place] [address] Patricia Franco PA-C [address] [place] [address] INFUSIONDAY 3NeurologyComment on above:INFUSION DAY 3Start: 08-20-2024 End: 81-96-6205urylnbnzps20/01/2025 9:00 AM EDT Infusion Center Neurology [address] [place] [address] NON-DHE 3NeurologyComment on above: NON-DHE 3Start: 08-19-2024 End: 44-30-0873oygadrszgf88/30/2025 9:00 AM EDT Infusion Center Neurology [address] [place] [address] NON-DHE 2NeurologyComment on above: NON-DHE 2Start: 08-19-2024 End: 90-81-5379Bktmrhj encounter rjtmydpgi40/30/2025 9:00 AM EDT Office Visit Neurology [address] [place] [address] Raiza Shields APRN.LAUNCH OPERATOR [address] [place] [address] Infusion dayNeurologyComment on above:Infusion dayStart: 08-02-2024 End: 55-82-8069Iwppxlp encounter telavawaq49/13/2025 11:00 AM EDT Office Visit Neurology [address] [place] [address] Curtis Lepe PA-C [address] [place] [address] INFUSION DAY 1 - PT ARRIVES AT 10AMNeurologyComment on above:INFUSION DAY 1 - PT ARRIVES AT 10AMStart: 08-02-2024 End: 75-76-1723vaquuigsgi30/13/2025 10:00 AM EDT Infusion Center Neurology [address] [place] [address] NON-DHE 1 per PSNeurologyComment on above:NON-DHE 1 per PSStart: 07-25-2024 End: 01-48-3893hkazzvqlvp15/05/2025 1:00 PM EDT Infusion Center Neurology [address] [place] [address] VyeptiNeurologyComment on above: VyeptiStart: 07-01-2024 End: 91-11-7082Zdltocy encounter txfcgwifw03/12/2025 8:30 AM EDT Office Visit [facility] [address] [facility] [place] [phone] Zay Blas, DO [address] [facility] [place] [address] Juan M RAJPUT OBComment on above:ArrivedStart: 06-10-2024 End: 27-17-9454MJB ISOLATION AND STORAGEDNA ISOLATION AND STORAGE Lab Routine Family history of genetic disorder Expected: 06/10/2024 (Approximate), Expires: 06/10/2025[facility] HospitalComment on above:Expected: 06/10/2024 (Approximate), Expires: 06/10/2025Start: 06-10-2024 End: 94-38-1406ZTKVMMSX SPECIMEN LABEL- REQUIRED FOR INHOUSE GENETIC TESTING GENETICS SPECIMEN LABEL- REQUIRED FOR INHOUSE GENETIC TESTING Lab Routine Family history of geneticdisorder Expected: 06/10/2024 (Approximate), Expires: 06/10/2025[facility] Work Phone: comment on above:Expected: 06/10/2024 (Approximate), Expires: 06/10/2025Start: 06-06-2024 End: 19-06-8875Mtgebvswsgqv consultation with yzydtoh3206/06/2024 4:30 PM EDT Telemedicine [facility] [address] [place] [address] [place] [address] Corine Gold MD [address] [place] [address] [facility] MedicineStart: 05-28-2024 End: 02-63-0960Jtopniv encounter lshuozefa72/08/2025 1:00 PM EDT Office Visit [facility] [address] [address] Vincent Peña DO [address] [address] [facility]/Sleep MedicineStart: 05-14-2024 End: 10-64-9969Xfhpaam encounter huoapvqzt28/25/2025 9:00 AM EDT Office Visit Joie Antonio [facility] - Medical Oncology [address] [place] [phone] Svetlana Ye PA [address] [place] [address] Joie Antonio [facility] - Medical OncologyStart: 05-03-2024 End: 00-85-5180ubtazaqnrt90/14/2025 9:30 AM EDT [facility] Neurology [address] [place] [address] Curtis Lepe PA-C [address] [place] [address] Head aches adding something elseNeurologyComment on above:Head aches adding something elseStart: 05-02-2024 End: 89-44-3986rtyfnpcpdj78/13/2025 2:30 PM EDT Infusion Center Neurology [address] [place] [address] vyepti infusionNeurologyComment on above:vyepti infusionStart: 04-30-2024 End: 46-56-5724Gfyshvz encounter cvtrewcng90/11/2025 9:00 AM EDT Office Visit Joie Antonio [facility] - Medical Oncology [address] [place] [phone] Svetlana Ye PA [address] [place] [address] Joie Antonio [facility] Medical OncologyStart: 04-25-2024 End: 05-47-8831Rwawswq encounter qwlrsskso73/06/2025 1:00 PM EST Office Visit [facility] [address] [facility] [place] [address] Corine Gold MD [address] [place] [address] [facility] Family MedicineStart: 04-16-2024 End: 09-81-3185Qdkfnyh encounter yieqyaews28/25/2025 8:30 AM EST Office Visit [facility] [address] [facility] [place] [address] Zay Blas, [address] [place] [address] [facility] BCP OBStart: 04-15-2024 End: 34-65-9575Pupeqsj encounter bubckvpcm44/24/2025 9:00 AM EST Office Visit [facility], A Department of [facility] [address] [place] [address] Svetlana Ye PA [address] [place] [address] [facility], A Department of [facility] - Dublintart: 04-10-2024 End: 63-90-5006Aoxbjfx encounter obqzgdeva58/19/2025 11:30 AM EST Office Visit [facility] [address] [place] [phone] Svetlana Ye PA [address] [facility], [place] [phone] (Work) Joie Fernández [facility] - Medical OncologyStart: 04-10-2024 End: 68-73-6408Ifqvkszrtjbb / ancillary services bjpzciohgg15/19/2025 9:30 AM EST Ancillary Procedure [facility] [address] [facility] [place] [phone] [facility] BCP OBStart: 03-29-2024 End: 59-70-8016tnulwirioj11/07/2025 1:30 PM EST Infusion Center Neurology [address] [place] [address] vyepti infusionNeurologyComment on above:vyepti infusionStart: 03-28-2024 End: 34-08-5052Xjtpptxvk to same day surgery uxnbir5203/28/2024 9:00 AM EST - 03/28/2024 12:45 PM EST Surgery [facility] Surgery [address] [place] [phone] Mundo Martinez MD [address] [place] [address] DAVINCI LYSIS OF ADHESIONSMercy Health [facility] SurgeryComment on above:DAVINCI LYSIS OF ADHESIONSStart: 03-28-2024 End: 27-27-3001GTLJUDF LYSIS OF ADHESIONSDAVINCI LYSIS OF ADHESIONS OVARIAN CYST BILATERAL 03/28/2024 9:00 AM [facility] 03-28-2024 End: 22-20-4204TDNULYT SALPINGO OOPHORECTOMYDAVINCI SALPINGO OOPHORECTOMY OVARIAN CYST BILATERAL 03/28/2024 9:00 AM [facility]: 49-84-0144Wihmiezrdl hospital visit by ylmxkibdh78/06/2025 9:00 AM EST Hospital Encounter [facility] Surgery [address] [place] [phone] Mundo Martinez MD [address] [place] [address] [facility] Surgery Start: 03-25-2024 End: 13-26-0974Ggpvfnx encounter zddnbspid28/03/2025 2:15 PM EST [facility] On [address] [phone] [facility] On [facility] Start: 03-22-2024 End: 28-34-1081skahkzqsvu67/31/2025 1:30 PM [facility] Infusion Center Neurology [address] [place] [address] vyepti infusionNeurologyComment on above:vyepti infusionStart: 03-20-2024 End: 07-05-2145EH Chest WO contrastCT chest without contrast Imaging Routine Moderate asthma with acute exacerbation, unspecified whether persistent Expected: 03/20/2024, Expires: 03/20/2025[facility] Work Phone: Comment on above:Expected: 03/20/2024, Expires: 03/20/2025Start: 02-28-2024 End: 32-40-1894ZEM tumor markerAFP tumor marker Lab Routine Complex ovarian cyst Expected: 02/28/2024 (Approximate), Expires: 02/27/2025NONY HealthcareComment on above:Expected: 02/28/2024 (Approximate), Expires: 02/27/2025Start: 02-28-2024 End: 48-50-4903IA 125CA 125 Lab Routine Complex ovarian cyst Expected: 02/28/2024 (Approximate), Expires: 02/27/2025NONY HealthcareComment on above: Expected: 02/28/2024 (Approximate), Expires: 02/27/2025Start: 02-28-2024 End: 49-40-3510Ljmoeeedalazmlju Ag [Mass/volume] in Serum or PlasmaCEA Lab Routine Complex ovarian cyst Expected: 02/28/2024 (Approximate), Expires: 02/27/2025NONY HealthcareComment on above:Expected: 02/28/2024 (Approximate), Expires: 02/27/2025Start: 02-28-2024 End: 82-71-1907QXL, tumor markerHCG, tumor marker Lab Routine Complex ovarian cyst Expected: 02/28/2024 (Approximate), Expires: 02/27/2025[facility] Comment on above:Expected: 02/28/2024 (Approximate), Expires: 02/27/2025Start: 02-28-2024 End: 66-35-0305Skvlbkx dehydrogenase, isoenzymesLactate dehydrogenase, isoenzymes Lab Routine Complex ovarian cyst Expected: 02/28/2024 (Approximate), Expires: 02/27/2025[facility] Work Phone: comment on above:Expected: 02/28/2024 (Approximate), Expires: 02/27/2025Start: 02-28-2024 End: 09-59-6036VN PelvisUS Pelvis w/ TV Imaging Routine Pelvic pain in female Complex ovarian cyst Expected: 02/28/2024, Expires: 02/27/2025[facility] Comment on above:Expected: 02/28/2024, Expires: 02/27/2025Start: 02-28-2024 End: 52-44-1143Ssswfqp encounter /08/2025 11:10 AM EST Office Visit [facility] [address] [facility] [place] [phone] Zay Blas DO [address] [facility] [place] [address] [facility] BCP OBStart: 02-22-2024 End: 21-30-1171Dgbkleh encounter gmueqmxrf00/02/2025 11:15 AM EST Office Visit [facility] [address] [place] [address] Lamont Blair MD [address] [place] [address] [facility] FMStart: 02-09-2024 End: 00-79-0611LY Abdomen and Pelvis WO and W contrast IVCT abdomen pelvis w and wo IV contrast Imaging Routine Generalized abdominal pain Intractable nausea and vomiting Expected: 02/09/2024, Expires: 02/08/2025NONY [employer] Work Phone: Comment on above:Expected: 02/09/2024, Expires: 02/08/2025Start: 02-05-2024 End: 65-22-4216rfhcnfcptq38/16/2024 1:45 PM EST [facility] Neurology [facility] [address] [place] [address] Sagar Barth APRN.LAUNCH OPERATOR [address] [facility], [id number] MingrainsNeurology Headache [facility] Hospitalomment on above:MingrainsStart: 01-24-2024 End: 91-62-7887Jkqrfza encounter xbtcdugtm61/04/2024 3:20 PM EST [facility] [address] [place] [address] Zay Blas, DO [address] [place] [address] [facility] BCP OBStart: 01-23-2024 End: 39-38-6940Teket metabolic 1998 panel - Serum or PlasmaBasic metabolic panel Lab Routine Generalized edema Expected: 01/23/2024 (Approximate), Expires: 04/2024NONY HealthcareComment on above:Expected: 01/23/2024 (Approximate), Expires: 01/22/2025Start: 01-23-2024 End: 53-65-5616JER W Auto Differential panel - BloodCBC and differential Lab Routine Generalized edema SOB (shortness of breath) on exertion Expected: 1 03/25/2023 (Approximate), Expires: 01/22/2025[facility] HealthcareComment on above: Expected: 01/23/2024 (Approximate), Expires: 01/22/2025Start: 01-23-2024 End: 26-52-6670Vqlqtse function 2000 panel - Serum or PlasmaHepatic function panel Lab Routine Generalized edema SOB (shortness of breath) on exertion Expected: 01/23/2024 (Approximate), Expires: 01/22/2025[facility] HealthcareComment on above:Expected: 01/23/2024 (Approximate), Expires: 01/22/2025Start: 01-23-2024 End: 09-41-7825Msvxyazfwsq peptide B [Mass/volume] in BloodB-type natriuretic peptide Lab Routine Generalized edema Expected: 01/23/2024 (Approximate), Expires: 01/22/2025NOM[facility] HealthcareComment on above:Expected: 01/23/2024 (Approximate), Expires: 01/22/2025Start: 01-23-2024 End: 21-22-5982HT Chest 2 ViewsXR chest 2 views Imaging Routine Mild persistent asthma with (acute) exacerbation (CMS/HCC) Generalized edema SOB (shortness of breath) on exertion Expected: 01/23/2024, Expires: 01/22/2025[facility] Work Phone: Comment on above:Expected: 01/23/2024, Expires: 01/22/2025Start: 01-23-2024 End: 78-14-7878Gcnghkz encounter procedureNOMS CWM FMComment on above:Arrived Start: 01-22-2024 End: 30-96-2176Cdchukd encounter qthfrouhp69/02/2024 2:30 PM EST Office Visit Neurology [address] [place] [address] Raiza Shields, POLICE INSPECTOR.LAUNCH OPERATOR [address] [place] [address] Infusion Day #3NeurologyComment on above:Infusion Day #3Start: 01-22-2024 End: 60-57-5425rymshshxwc31/02/2024 2:00 PM EST Infusion Center Neurology [address] [place] [address] Non-DHE Infusion Day #3Neurology Comment on above:Non-DHE Infusion Day #3Start: 01-19-2024 End: 79-83-1225djveozytcb58/29/2024 9:30 AM EST Infusion Center Neurology [address] [place] [address] Non-DHE Infusion Day #2Neurology Comment on above:Non-DHE Infusion Day #2Start: 01-09-2024 End: 42-77-1503Gvquryb encounter procedureNOMS CWM FMComment on above:Arrived Start: 01-05-2024 End: 28-30-8587ulzjjehqgx61/15/2024 1:00 PM EST Infusion Center Neurology [address] [place] [address] VyeptiNeurologyComment on above: VyeptiStart: 12-12-2023 End: 98-00-6411Ngeswrr encounter dirfwrcsa15/22/2024 3:45 PM EDT Office Visit [facility] [address] [place] [address] Lamont Blair MD [address] [place] [address] [facility]OMS CWM FMStart: 12-11-2023 End: 91-39-9626Mmrfjpj encounter kdueocuqy93/21/2024 1:00 PM EDT Office Visit [facility] [address] [facility] [address] Zay Blas, [address] [place] [address] [place], [place] [phone] ArrivedNOMS BCP OBComment on above:ArrivedStart: 11-15-2023 End: 44-38-7428Wbrquth encounter kyuprtnza98/25/2024 8:45 AM EDT Office Visit [facility] [address] [place] [address] Lamont Blair MD [address] [place] [phone] ArrivedNOMS CWM FMComment on above:ArrivedStart: 11-06-2023 End: 27-37-3961Ifepzsx encounter faghqcjhp04/16/2024 11:30 AM EDT Office Visit [facility] NE[facility] [address] [facility] [address] [place] [address] Jose Martin Lopez MD [address] [facility] [address] [place] [phone] NOMS SWS NEURStart: 10-31-2023 End: 48-41-9663Xbmpqza encounter lhpcyzgkf74/10/2024 2:30 PM EDT Office Visit Neurology [address] [place] [address] Tyrone Dolan MD, PhD [address] [facility] [address] [place] [address] SeizureNeurologyComment on above:SeizureStart: 23-29-5178Ofjwf-19 Vaccine ( season)Covid-19 Vaccine ()[facility]: 80-40-2283Gzgqy-19 Vaccine ()Covid-19 Vaccine ()[facility]: 92-43-7519Zyvycmqbp vaccinationPremier Health [facility] Start: 10-13-2023 End: 08-73-1157zkouuhgwjg03/23/2024 1:00 PM EDT Infusion Center Neurology [address] [place] [phone] Vyepti InfusionNeurologyComment on above:Vyepti InfusionStart: 10-10-2023 End: 37-55-8058Apvtqhr encounter krzaigypi00/20/2024 9:15 AM EDT Office Visit [facility] [address] [place] [address] Lamont Blair MD [address] [address] ArrivedNOMS CWM FMComment on above:ArrivedStart: 09-19-2023 End: 35-65-9615Zsqnljd encounter ohtavbgpt12/30/2024 2:30 PM EDT Office Visit Neurology Headache [facility] [address] [place] [address] Sagar Barth APRN.LAUNCH OPERATOR [address] [place] [address] Migraines [address] BlockNeurology Headache [facility] [place] FHCComment on above:Migraines Nerve BlockStart: 08-18-2023 End: 49-21-0635Mrtkwpx encounter urlfbboal33/28/2024 9:30 AM EDT Office Visit Neurology [address] [place] [address] Curtis Lepe PA-C [address] [place] [address] NERVEBLOCKNeurologyComment on above:NERVE BLOCKStart: 00-40-4360Tewhsqnzbf ScreeningDepression ScreeningCleveland Clinic Health SystemStart: 50-56-2740Xyekkmiedz AssessmentDepression AssessmentCleveland Clinic Marymount Hospitaltart: 20-83-6950Buocv depression screening assessmentDEPRESSION SCREENINGCleveland Clinic Marymount Hospitaltart: 65-50-3517Ypcjp- 19 Vaccine ()Covid-19 Vaccine ()[facility] Hospitaltart: 11-46-9643Gtmkeeabx vaccinationCleveland Clinic Marymount Hospitaltart: 02-20-2022 DEPRESSION ASSESSMENTDEPRESSION ASSESSMENTCleParkview Healthtart: 10-26-2021 End: 35-12-6397FDJG-CoV-2 (COVID-19) RNA [Presence] in Respiratory specimen by SAURABH with probe detectionPRE-PROCEDURE & PRE-OPERATIVE COVID Microbiology Routine Seizure-like activity (HCC) Expected: 10/26/2021, Expires: 10/26/2022[facility] Work Phone: Comment on above:Expected: 10/26/2021, Expires: 10/26/2022Start: 48-16-8835Kftmkmjvt vaccinationBON LAKEHEALTH BEACHWOOD MEDICAL CENTERStart: 90-89-6857FWAFBLORRR ASSESSMENTDEPRESSION ASSESSMENTCleveland Clinic Marymount Hospitaltart: 01-29-3065Hkyjcrnxy vaccinationFlu vaccine (#1)[facility] Work Phone: start: 55-66-2794NRE TESTINGPAP TESTINGCleveland Clinic Marymount Hospitaltart: 94-99-1738Zlljreupa for malignant neoplasm of cervixBON LAKEHEALTH BEACHWOOD MEDICAL CENTERStart: 73-54-8901Stpcutwms B Vaccine (1 of 3 - 19+ 3-dose series) Hepatitis B Vaccine (1 of 3 - 19+ 3-dose series)[facility] Start: 12-93-1072Kyvha microalbumin profileCleveland Clinic Marymount Hospitaltart: 11-13-2013 Adult BMI Follow Up PlanAdult BMI Follow Up [facility]art: 03-08-8636Puedzzt ScreeningAnxiety ScreeningCleveland Clinic Marymount Hospitaltart: 11-13-2013 Depression ScreeningDepression ScreeningCleveland Clinic Marymount Hospitaltart: 11-13-2013 Hepatitis C screeningBON LAKEHEALTH BEACHWOOD MEDICAL CENTERStart: 69-84-7958YCYRDTKWD C SCREENINGHEPATITIS C SCREENINGCleveland Clinic Marymount Hospitaltart: 12-83-0220GPI SCREENINGHIV SCREENINGCleveland Clinic Marymount Hospitaltart: 35-75-1019VZH screeningHIV ScreeningCleveland Clinic Marymount Hospitaltart: 67-30-9670Djrbekski for Chlamydia trachomatisChlamydia screenSentara Norfolk General Hospital: 71-45-7083LPM screeningHIV screenSouthampton Memorial Hospitalart: 55-24-3729KESP TO ADULT TRANSITION ANNUAL ASSESSMENTPEDS TO ADULT TRANSITION ANNUAL ASSESSMENTCleveland Clinic Marymount Hospitaltart: [phone] Vaccine (1 of 2 - 13+ 2-dose series)Varicella Vaccine (1 of 2 - 13+ 2-dose series) [facility]: [phone] depression screening assessmentDEPRESSION SCREENINGCleveland Clinic Marymount Hospitaltart: [phone]-19 Vaccine (1)COVID-19 Vaccine (1)[facility] Work Phone: start: [phone] ScreenDepression ScreenSentara Norfolk General Hospital: [phone] TO ADULT TRANSITION INITIAL DISCUSSIONPEDS TO ADULT TRANSITION INITIAL DISCUSSIONCleveland Clinic Marymount Hospitaltart: [phone] VACCINE (1 - 2-dose series)HPV VACCINE (1 - 2-dose series) [facility]: [phone] VACCINE (1 - 2-dose series)HPV VACCINE (1 - 2-dose series)[facility] [facility]: 44-34-7535XYvP/Tdap/Td Vaccine (1 - Tdap) DTaP/Tdap/Td Vaccine (1 - Tdap)[facility]: [facility][birth year][facility]1996 MMR Vaccine (1 of 1 - Standard series)MMR Vaccine (1 of 1 - Standard series) [facility]: 32-04-0605DYWXP-19 Vaccine (#1)COVID-19 Vaccine (#1)[facility]ITALPingThings [facility]ITALStart: 00-65-8809RXGCLVJFU B (1 of 3 - 3- dose series)HEPATITIS B (1 of 3 - 3-dose series)[facility]: 58-69-7987Tyvbhjgva B Vaccine (1 of 3 - 3-dose series)Hepatitis B Vaccine (1 of 3 - 3-dose series)[facility]: 72-15-8201Houmhuebu C screening Hepatitis C [facility] [employer] Work Phone: End: 94-29-1203Uxcuv-1-Antitrypsin CxnmpxxsbGgwqi-9-Jarmopvjgez Phenotype Lab Routine Moderate asthma with acute exacerbation, unspecified whether persistent 1 Occurrences starting 03/20/2024 until 03/20/2025[facility] HospitalBlackLine SystemsComment on above:1 Occurrences starting 03/20/2024 until 3206Ergok-2-Hlionmbgsvv SjkcdcbjlUxzdw-9-Ajjxjftsryt Phenotype Lab Routine Moderate asthma with acute exacerbation, unspecified whether persistent 03/20/2024 1:12 PM Next GamesBacteria identified in Blood by Aerobe cultureInetec Work Phone: Bacteria identified in Urine by CultureURINE CULTURE, ROUTINE Lab Routine 01/31/2024 11:[address] [facility] HospitalBacteria identified in Wound by Aerobe cultureWound culture superficial includes gram stain Microbiology Routine 04/08/2024 8:25 PM [employer] Phone: End: 60-75-8446Exreo Metabolic Panel w/ Reflex to MGBasic Metabolic Panel w/ Reflex to MG Lab Routine Daily for 7 Days starting 10/20/2021 until 10/26/2021 [facility] [employer] Phone: comment on above:Daily for 7 Days starting 10/20/2021 until 10/26/2021 End: 56-68-4889JBH W Auto Differential panel - BloodCBC with Auto Differential Lab Routine Daily for 7 Days starting 10/20/2021 until 10/26/2021, 1 completed BON [employer] Work Phone: comment on above:Daily for 7 Days starting 10/20/2021 until 10/26/2021, 1 completed End: 80-40-3684KIT W Auto Differential panel - BloodCBC with auto diff Lab Routine Postoperative infection, unspecified type, subsequent encounter 1 Occ urrences starting 05/02/2024 until 05/02/2025[employer] Work Phone: Comment on above:1 Occurrences starting 05/02/2024 until 05/02/2025HLAMYDIA TRACHOMATIS (GENITO/STI)CHLAMYDIA TRACHOMATIS (GENITO/STI) Lab Routine Yeast infection Ordered: 07/01/2024[employer] Comment on above:Ordered: 07/01/2024 End: 74-16-0579Ygjgrhhmppzla metabolic 2000 panel - Serum or PlasmaComprehensive metabolic panel Lab Routine Postoperative infection, unspecified type, subsequent encounter 1 Occurrences starting 05/02/2024 until 05/02/2025[facility] HospitalTruMarx Data Partners SystemComment on above:1 Occurrences starting 05/02/2024 until 05/02/2025ytology Cervical or vaginal smear or scraping studyPap Smear Pathology and Cytology Routine Well woman exam with routine gynecological exam Ordered: 04/16/2024[employer] Work Phone: comment on above:Ordered: 04/16/2024 End: 19-88-6005LKI 12 leadECG 12 lead ECG Routine Bilateral ovarian cysts Preop testing 1 Occurrences starting 03/19/2024 until 03/19/2025[employer] Work Phone: Comment on above:1 Occurrences starting 03/19/2024 until 03/19/2025EKG 12 LeadEKG 12 Lead ECG Routine 10/19/2021 5:55 PM EDTBON [employer] Work Phone: End: 25-99-6930AOJW AMBULATORY EEGEPIL AMBULATORY EEG NEUROLOGY Routine Psychogenic nonepileptic seizure Spells of trembling 1 Occurrences starting 10/29/2021 until 10/29/2022[facility] Work Phone: Comment on above:1 Occurrences starting 10/29/2021 until 10/29/2022 End: 58-56-1321SRHO EEG LEAD PLACEMENTEPIL EEG LEAD PLACEMENT NEUROLOGY Routine Seizure-like activity (HCC) 1 Occurrences starting 10/26/2021 until 10/26/2022 [facility] Work Phone: Comment on above:1 Occurrences starting 10/26/2021 until 10/26/2022 End: 96-20-8506BSCY EEG ROUTINEEPIL EEG ROUTINE NEUROLOGY Routine Seizure-like activity (HCC) 1 Occurrences starting 11/08/2021 until 11/08/2022[facility] Work Phone: Comment on above:1 Occurrences starting 11/08/2021 until 11/08/2022EPIL VEEG ADMIT TO EMU/PMUEPIL VEEG ADMIT TO EMU/PMU NEUROLOGY Routine Seizure-like activity (HCC) Ordered: [facility]CKind[facility] Work Phone: Comment on above:Ordered: 10/26/2021Neisseria gonorrhoeae DNA [Presence] in Unspecified specimen by SAURABH with probe detection Neisseria gonorrhea DNA probe, direct Lab Routine Yeast infection Ordered: 07/01/2024[facility] [employer]Comment on above:Ordered: 07/01/2024Oxygen therapy [Minimum Data Set]Initiate Oxygen Therapy Protocol Respiratory Care Routine As Needed until discontinued starting 10/19/2021[facility] Work Phone: comment on above:As Needed until discontinued starting 2SURESWAB(R) ADVANCED VAGINITIS PLUS, TMASURESWAB(R) ADVANCED VAGINITIS PLUS, TMA Pathology and Cytology Routine Yeast infection Ordered: 07/01/2024[facility] [employer] Work Phone: comment on above:Ordered: 07/01/2024 End: 71-69-0868Smoy and screen(includes indirect ady)Type and screen(includes indirect ady) Blood Bank Routine Bilateral ovarian cysts Preop testing 1 Occurrences starting 03/19/2024 until 03/19/2025[facility] MemorialComment on above:1 Occurrences starting 03/19/2024 until 03/19/2025[facility] Immunizations Immunization DateImmunizationNotesCare CusyvdciBjibeciq88-54-5127Bfygyttha, injectable, Madin Shivani Canine Kidney, preservative free, quadrivalentMundo Martinez MD Work Phone: [facility] MemorialZotkja99-91-3311rxsmilcsh virus vaccine, unspecified formulationJeeverette Ivey APRN.CNP Work Phone: [facility] NorthNmwaol29-19-0046fnnbapcoz, seasonal, injectable, preservative Brandon Martinez MD Work Phone: [facility] MemorialTqjdpf86-19-7443eqntfopcd virus vaccine, unspecified formulationCoabdoul Walton MS, [facility] Work Phone: [facility]08-01-2016tetanus toxoid, reduced diphtheria toxoid, and acellular pertussis vaccine, adsorbed Mundo Martinez MD Work Phone: [facility] MemorialRlwbes71-42-7120hotdxfgud, seasonal, injectable, preservative Brandon Martinez MD Work Phone: [facility] MemorialYugaig90-89-1574xyuhpiavh, seasonal, injectable, preservative Brandon Martinez MD Work Phone: [facility]04-02-2013human papilloma virus vaccineAshley MD Work Phone: [facility]11-30-2012human papilloma virus Ashley smiley MD Work Phone: [facility]09-25-2012human papilloma virus vaccine, quadrivalentMundo Martinez MD Work Phone: [facility] MemorialPhzqop07-45-4917wtmqbmccx, seasonal, injectable, preservative freeMundo Martinez MD Work Phone: [facility] MemorialQhulrz77-64-5788cfnzwfrqcvinq polysaccharide (groups A, C, Y and W-135) diphtheria toxoid conjugate vaccine (MCV4P)Mundo Martinez MD Work Phone: [facility] MemorialNzimab30-43-7837rllcnojoe virus vaccineMundo Martinez MD Work Phone: [facility] MemorialWvqhhf50-01-4262ipnzsgoop B vaccine, pediatric or pediatric/adolescent dosageMundo Martinez MD Work Phone: [facility] MemorialTtopsp84-93-2142pqhzvlqxn virus vaccineMundo Martinez MD Work Phone: [facility] MemorialHbwwvy61-97-4077eybnveldor, tetanus toxoids and acellular pertussis vaccineMundo Martinez MD Work Phone: [facility]07-19-2002measles, mumps and rubella virus vaccineMundo Martinez MD Work Phone: [facility] MemorialZcjziq19-00-0818jrcymngkjs vaccine, inactivatedMundo Martinez MD Work Phone: [facility] MemorialBwdvnl54-36-8087tehddazljs, tetanus toxoids and acellular pertussis vaccine, Haemophilus influenzae type b conjugate , and poliovirus vaccine, inactivated (HUhG-Dle-PRV)Mundo Martinez MD Work Phone: [facility]01-14-1998measles, mumps and rubella virus vaccineMundo Martinez MD Work Phone: [facility] MemorialRxhruu30-82-0107pqsmeuckac, tetanus toxoids and acellular pertussis vaccine, Haemophilus influenzae type b conjugate , and poliovirus vaccine, inactivated (ZZlC-Wzs-HPD)Mundo Martinez MD Work Phone: [facility] MemorialApspnj26-58-4197ncexdikrsr, tetanus toxoids and acellular pertussis vaccine, Haemophilus influenzae type b conjugate , and poliovirus vaccine, inactivated (QXaM-Hnf-VXF)Mundo Martinez MD Work Phone: [facility] MemorialOxsset92-45-4577fuoviamdd B vaccine, pediatric or pediatric/adolescent Esperanza Martinez MD Work Phone: [facility] MemorialRmyjyl56-00-6185wbtduqiisd, tetanus toxoids and acellular pertussis vaccine, Haemophilus influenzae type b conjugate , and poliovirus vaccine, inactivated (VTmQ-Kqp-CVI)Mundo Martinez MD Work Phone: [facility] MemorialSzhvus15-61-1842vgyiqmnuh B vaccine, pediatric or pediatric/adolescent Esperanza Martinez MD Work Phone: [facility] MemorialLnfjtw09-88-0029yflhmkfod B vaccine, pediatric or pediatric/adolescent Esperanza Martinez MD Work Phone: [facility] Payers DatePayer CategoryPayerPolicy [id number] (Managed Care)[employer] Member Subscriber Plan / Payer (Effective 2022-Present) Name: Margaret Nicholson Relation to Subscriber: Self Name: Margaret Nicholson Payer ID: Not on file Group ID: Not on file Type: Not on file Address: [address] [id number]-ibq 2017[place]icaid[place] MED[place] [id number] 2017- Present [id number] Medicaid [place] [id number] 2014Medicaid [id number]eidk [id number] 2..1.694258.3.579.[id number] 2..1.337311.3.579.[id number] 2..1.299436.3.579.2.31051-96-2734Xwymuvj2144607 2..1.299632.3.579.2.73736-30-7005Gejcrac5384319 2..1.962178.3.57[id number] 2.160.1.808924.3.579.2.75705-38-3386Pktbmnl4842494 2..1.284613.3.579.2.28742-23-7098Iwfgnhx4850159 2.160.1.821608.3.579.2.27122-26-7489Jkxbout5750778 2.16.840.1.631671.3.579.2.63555-41-1727Nkdgifn1382716 2.16.840.1.656851.3.579.2.41498-11-1410Gvwxchp4166863 2.16.840.1.580145.3.579.2.50620-21-1042Flxthwc5245067 2.16.840.1.947394.3.579.2.15041-97-6456Jlglifm7020928 2.16.840.1.933929.3.579.2.69274-20-9744Pwcopwp1923353 2.16.840.1.531082.3.579.2.34312-71-5555Wgnadeb7114440 2.16840.1.080219.3.579.2.15892-62-4922Soretsb7209916 2.16840.1.272626.3.579.2.52954-46-0124Tkrghtw1216740 2.16.840.1.670774.3.579.2.74649-02-6684Ebksdiw9894276 2.16.840.1.841518.3.579.2.97928-76-0421Parhgfo2932587 2.16840.1.287616.3.579.2.19945-57-0155Tstbmqb4613819 2.16.840.1.301225.3.579.2.29876-51-8834Znkgvjg3055293 2.16.840.1.741994.3.579.2.32118-66-3524Gcsbvoz1342758 2.16.840.1.268734.3.579.2.27201-17-1147Xfgpngl1489048 2.16840.1.773166.3.579.2.98324-29-0330Zdxuzrz9730655 2.16.840.1.233689.3.579.2.19283-74-9896Enhsqer3913432 2.16840.1.206531.3.579.2.07811-45-1876Tgpuizy91468365 2.16840.1.288372.3.579.2.653915-70-2505Rtytbvu4944381 2.840.1.170485.3.579.2.028166-81-1262Sbyjdhw6405664 2.0.1.659635.3.579.2.968772-39-6865Expwyhf7936998 2.840.1.697106.3.579.2.237502-04-7324Fcuklin0669412 2.0.1.306488.3.579.2.425525-69-0794Tkteixr0038524 2.0.1.309206.3.579.2.580042-70-1098Uyzwftk3439404 2.0.1.248421.3.579.2.916230-14-1809Rpoiomk2279865 2.840.1.355697.3.579.2.177156-68-4970Iskhofw1053976 2..1.992022.3.579.2.263322-74-3926Qtsjwpr0345723 2.840.1.378460.3.579.2.385220-11-0132Rvloypy9526705 2.840.1.883587.3.579.2.141580-91-1501Pqzzviw4471434 2.16840.1.405088.3.579.2.890008-88-5538Dwcmjlz0971287 2.840.1.940181.3.579.2.429804-53-5277Lsnlknq312465413886 1.2.840.330602.1.13.239.2.7.3.826955.521Kjwhvcg74948693 2.16.840.1.152613.3.579.2.531 Social History DateTypeDetailFacilityTobacco smoking status NHISUnknown if ever smokedCleveland Clinic [facility] Hospitaltart: 64-29-8352Ica Assigned At BirthNot on fileCleveland Clinic [facility] Hospitaltart: 12-24-2020 End: 89-83-0470Ieylgcd smoking status NHISNever smokerBethesda North HospitalOn Center Software Phone: start: 12-24-2020 End: 62-02-9843Ssnxqag use and exposureNever usedDayton Children'S HospitalStart: 12-24-2020 End: 22-80-4082Zpbbnlb intakeEx-drinker (finding)[employer] Phone: start: 10-16-2021 End: 77-11-9438Ibrgiuou to SARS-CoV-2 (event)Not sureDetwiler Memorial Hospitalsifonr smoking status NHISTobacco smoking consumption unknownPrem[facility] Health [facility] [employer] Phone: Start: 03-03-2020 End: 72-23-1518Ytwoimf of Social functionCleveland Clinic Mary[facility] Hospitaltart: 03-03-2020 End: 27-87-5622Iduxdjg Health Questionnaire 2 item (PHQ-2) [Reported][facility]: 33-50-9063Ihnts Depression Screening Mlkkrfgpcm7Xehkjadwe Clinic Start: 11-15-2023 End: 69-27-2737Djywpneab beverage intakeLifetime non-drinker (finding)[facility] HealthcareStart: 86-23-5410Jqkotth CommentCaffeine intake: >4 cups per dayNOMS HealthcareDo you belong to any clubs or organizations such as moravian groups, unions, fraternal or athletic groups, or [...] the mortgage or rent on time?NoNOMS HealthcareStart: 96-60-9054SvwEvkmkj (finding)[facility] Hospitaledic Health SystemHow often to you have a drink containing alcohol?Monthly or lessProWooster Community Hospitalca Health SystemHow many standard drinks containing alcohol do you have on a typical day?1 or 2PSt. Rita's Hospital SystemStart: 41-85-7026Lwygout Commentsocial [facility] SystemNEGATED: Highlighted rowStart: NINFHistory of tobacco use Passive smokerNOMS Healthcare Goals DatePatient GoalDesired Activity/StatePersonal health goalComment on above: Evaluation of progress towards goal: Patient stated goal is to return home with HCC for assistance with wound care Functional Status ErwjDonzdwhoyzIhslocAknddvxa98-35-4608Mqk you deaf, or do you have serious difficulty hearingNo 04/01/2022 6:20 PM Katie Florez RN NoCst. elizabeth hospitalpeggy Bpnoel61-40-3167Zka you blind, or do you have serious difficulty seeing, even when wearing glassesNo 04/01/2022 6:20 PM Katie Florez RN NoCleveland Zpqffr50-53-8003Se you have serious difficulty walking or climbing stairsNo 04/01/2022 6:20 PM Katie Florez RN NoCst. elizabeth hospitalpeggy Yviwvl05-55-2632Lf you have difficulty dressing or bathingNo 04/01/2022 6:20 PM Katie Florez RN NoCst. elizabeth hospitalpeggy Hdhnvh19-82-7734Wikydef of a physical, mental, or emotional condition, do you have difficulty doing errands alone such as visiting a physician's office or shoppingNo 04/01/2022 6:20 PM Katie Florez RN No [facility] Mental Status NbqbWqwzwpljujYgdutrYrvglvke14-60-7673Lqbhpvn of a physical, mental, or emotional condition, do you have serious difficulty concentrating, remembering, or making decisionsNo 04/01/2022 6:20 PM Katie Florez, PRATIBHA [facility] Clinical Notes 12-24-2020 to 12-20-2024 Note Date & JcclBkgeLcdfdqun86-20-1098 History of Present illness Narrative* Saba Fieldsaji, POLICE INSPECTOR-LAUNCH OPERATOR - 12/20/2024 10:00 AM EDT Subjective Patient [...] 03/25/2024 Prolonged emergence from general anesthesia Seizure ([facility]) Last one 03-11-2024 Past Surgical History Past Surgical History: Procedure Laterality Date APPENDECTOMY SECTION CHOLECYSTECTOMY [facility] DV5 LYSIS OF ADHESIONS N/A 03/28/2024 Performed by Mundo Martinez MD at [facility] DV5 LYSIS OF ADHESIONS N/A 03/28/2024 Performed by Jesse Sultana MD at [facility] DV5 SALPINGO OOPHORECTOMY/FROZEN SECTION Bilateral 03/28/2024 Performed by Mundo Martinez MD at [facility] DILATION AND CURETTAGE OF UTERUS PARTIAL [...] Physical Activity: Insufficiently Active (01/23/2024) Received from [facility] Exercise Vital Sign On average, how many days per week do you engage in moderate to strenuous exercise (like a brisk walk)?: 7 days On average, how many minutes do you engage in exercise at this level?: 10 min Stress: Stress Concern Present (01/23/2024) Received from [facility] [place] [facility] - Occupational Stress Questionnaire Feeling of Stress : Rather much Social Connections: Socially Integrated (01/23/2024) Received from [facility] Social Connection and Isolation Panel In a typical week, how many times do you talk on the phone with family, friends, or neighbors?: More than three times a week How often do you get together with friends or relatives?: Twice a week How often do you attend moravian or bahai services?: More than 4 times per year Do you belong to any clubs or organizations such as moravian groups, unions, fraternal or athletic groups, or [...] TWO PUFFS BY MOUTH EVERY 4 HOURS BFDJIC48 g 0 baclofen (LIORESAL) 10 mg tablet [...] NOSTRIL EVERY OTHER DAY 16 g 2 exuvygxyoyn-psejessii-cotwtwso (TRELEGY ELLIPTA) 200-62.5-25 mcg blister with device [...] SARAHI Karimi 12/20/24 1320 documented in this encounterBrecksville VA / Crille HospitalPubNub Vhsift67-35-3506 History of Present illness Narrative* Vincent Peña [...] Dupixent today Follow-up in 3 months at [facility] OSMANI Hooper presents for follow-up of [...] has been getting regular fills from [facility] [place]. She does also note that her youngest [...] process is seen. Dr. Vincent Peña DO. [facility] Office: [phone] documented in this encounterBrecksville VA / Crille HospitalPubNub Qjgkyy64-19-7564 NoteHNO ID: [id number] Author: CURTIS LEPE PA-C Service: ? Author Type: Physician Savings Counselor Type: Progress Notes Filed: 12/13/2024 10:49 Note [...] Lymph 1.00 - 4.00 k/uL 0.84 Abs Mckean <0.87 k/uL 0.06 Abs Eosin <0.46 k/uL [...] ZOLMitriptan (ZOMIG) 5 mg nasal sprayUse 1 [place] in the nose as needed at onset [...] is symmetric witho (more content not included)... [facility]10-24-2025 NoteHNO ID: [id number] Author: CORETTA QUINTANILLA RN Service: ? Author Type: Registered Nurse Type: Progress Notes Filed: 12/13/2024 10:37 Note Text: 0832: Patient in for day 2 of IV infusions. Patient rated headache 8/10. Patient stated severe nausea and severe dizziness. Patient educated on medications to be administered. Patient verbalized understanding and agreed to proceed with infusions. 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 She would like PRN zofran for nausea and PRN benadryl for sedation. 1036: Pts infusions complete. Pt tolerated infusion well. Pt rated headache 4/10. Pt stated severe nausea and moderate dizziness. Pt preferred second line PRN phenergan for nausea over zofran. Phenergan administered. Pt discharged from treatment room via wheelchair to her in the lobby.[facility]10-23-2025 Miscellaneous Notes* Telephone Encounter - Vielka Hussein - 12/12/2024 10:57 AM EDT 12/10 Order received 12/12 Called PT LM to schedule sleep study. Comp Order and 12/10/24 M. [facility] Epic Notes documented in this encounterK[facility]tering [facility]10-23-2025 Telephone encounter Note* Telephone Encounter - Vielka Hussein - 12/12/2024 10:57 AM EDT 12/10 Order received 12/12 Called PT LM to schedule sleep study. Comp Order and 12/10/24 M. Epic Notes [facility]icothe HospitalImplandata Ophthalmic Products Bhlagq08-09-0198 NoteHNO ID: [id number] Author: LENNIE PALACIOS, PRATIBHA Service: ? Author [...] given. Patient with moderate dizziness, transferred to [facility] for discharge in wheelchair.[facility]10-23-2025 NoteHNO ID: [id number] Author: BASIL CORNELIUS, Service: ? Author Type: Physician Type: Progress Notes Filed: 12/12/2024 09:58 Note Text: [facility] [place] [address] [place] [address] Headache Center - Follow up Visit Accompanied [...] this. Current treatment: Preventative: Vyepti 300 mg s6qgyxfa Abortive: Zavzpret 10 mg IN prn Zomig IN prn Phenergan Last office visit 09/24/2024: Headache 1 Location: holcephalic Quality/Description: throbbing and pressure Associated Symptoms: Photophobia: yes Phonophobia: yes Nausea: yes Vomiting: yes Other symptoms: osmophobia and vertigo Worse with activity: yes Number of migraine headache days/month (more content not included)...[facility]10-22-2025 NoteHNO ID: [id number] Author: LENNIE PALACIOS RN Service: ? Author [...] sleepy and discharged in a wheelchair to ,(tractor driver teamster). Toradol given after Vyepti flush . Headache unchanged still /. Patient scheduled with Dr. Cornelius tomorrow morning.[facility]10-22-2025 NoteHNO ID: [id number] Author: STANLEY LAZO APRN.LAUNCH OPERATOR Service: ? Author Type: Nurse Practitioner Type: Progress Notes Filed: 12/11/2024 10:46 Note Text: Pt has severe migraines. She is requesting toradol IV while she has Vyepti infusions. She has not had any NSAIDs in the last 4 days, kidney function is normal. Will give 30 mg IV toradol today.[facility]10-21-2025 History of Present illness Narrative* Corine Gold MD - 12/10/2024 2:30 PM EDT Images from the original note were not included. [address] [place] [id number] Patient: April Nicholson Date of : [...] PAP titration; Future - Ambulatory referral to [facility] Sleep [facility]; Future JUAN DAVID screen positive Needs Sleep study Ordered today Follows psychiatry Is on hormone replacement after total hysterectomy Exercise counseling completed. Follow-up in 3 months CORINE GOLD MD Family Medicine Physician [facility] 12/10/24 This note was completed with voice recognition software. The document was reviewed for errors however some may still be present. Please do not hesitate to contact/Epic msg the author to verify any questions/concerns. documented in this encounterKettering Health [facility] Memorial10-07-2025 NoteHNO ID: [id number] Author: RAIZA SHIELDS APRN.CNP Service: ? Author Type: Nurse Practitioner Type: Progress Notes Filed: 11/26/2024 13:56 Note Text: Patient was incorrectly scheduled; Was told to establish care with MD, I will have scheduling team reach out and assist patient in getting set up with Physician. Appointment cancelled, no charge. Raiza Shields APRN.CNPOhiohealth Van Wert Hospital09-04-2025 History of Present illness Narrative* SARAHI [...] (three) times a dayfor 7 days. - oaaujnte-wswddygfc-CH (CORTISPORIN) otic solution; Administer 3 drops into [...] SARAHI Champion 10/24/24 1530 documented in this encounterKettering Health Greene Memorial08-05-2025 NoteHNO ID: [id number] Author: CURTIS LEPE PA-C Service: ? Author Type: Physician Savings Counselor Type: Progress Notes Filed: 12/12/2024 22:32 Note [...] visit. Either the patient or their legal personal financial representative has been informed of the risks [...] beyond the current two-m (more content not included)...[facility]07-15-2025 History of Present illness Narrative* Yumiko [...] sleep 01/24/2023 Mild persistent asthma ([facility]) 01/24/2023 Polycystic ovaries 01/24/2023 Psychogenic nonepileptic seizure 01/24/2023 Class 3 severe obesity due to excess calories without serious comorbidity with body mass index (BMI) of 50.0 to 59.9 in adult ([facility] 03/21/2023 Mild persistent asthma with (acute) exacerbation ([facility]) 10/10/2023 Fatigue 01/01/2024 [...] of asthma with allergic rhinitis ([facility]) Allergies Asthma ([facility]) At low risk for fall Bipolar affective, mixed ([facility]) Change in blood pressure Cholecystitis 2008 Depressive disorder OMID (generalized anxiety disorder) History of hysterectomy 10/01/2021 Insomnia, persistent Migraines Mild persistent asthma without complication ([facility]) Morbid obesity with BMI of 40.0-44.9, adult [facility] PCOS (polycystic ovarian [...] without status migrainosus, not intractable Depressive disorder OIMD (generalized anxiety disorder) History of hysterectomy 10/01/2021 Insomnia, persistent Migraines Mild persistent asthma without complication ([facility]) Morbid obesity with BMI of 40.0-44.9, adult ([facility]) PCOS (polycystic ovarian syndrome) Psychogenic nonepileptic seizure Right otitis media Seizures ([facility]) stressed induced Social [...] nursing note reviewed. Exam conducted with a bridge instructor present. Vitals: Estimated body mass index is [...] of: Zay Blas DO documented in this encounterSouthPointe [id number] Miscellaneous Notes* [facility] En[facility] 9:19 AM EDT With Provider: VINCENT PEÑA [[facility]] Preferred Date Range: 08/27/2024 - 09/07/2024 Preferred Times: Any Reason for Visit: Same Day Comments: Asthma and allergy flareup documented in this encounterK[facility]07-07-2025 Telephone encounter Note* Telephone Encounter - [facility] - 08/26/2024 9:19 AM EDT With Provider: VINCENT PEÑA [[facility]] Preferred Date Range: 08/27/2024 - 09/07/2024 Preferred Times: Any Reason for Visit: Same Day Comments: Asthma and allergy flareup [facility] [id number] Telephone encounter Note* Telephone Encounter - Mendoza Dooley - 08/19/2024 3:31 PM EDT Called patient since she no-showed for infusions today. Patient is going to cancel her infusions because she is headache free at the moment. She does want to know what to do if her headaches come back. Forwarding message to provider [facility]06-30-2025 Miscellaneous Notes* Telephone Encounter - Mendoza Dooley - 08/19/2024 3:31 PM EDT Called patient since she no-showed for infusions today. Patient is going to cancel her infusions because she is headache free at the moment. She does want to know what to do if her headaches come back. Forwarding message to provider documented in this encounterPrem[facility]06-27-2025 Telephone encounter Note * Telephone Encounter - Mendoza Dooley - 08/16/2024 11:44 AM EDT Patient last infusion was on 08/02 and only had one day. Routing to provider to see if she can come in [facility]06-27-2025 Miscellaneous Notes* Telephone Encounter - Mendoza Dooley [...] to patient or clarification documented in this encounterPremier Health [facility]06-27-2025 Telephone encounter Note * Telephone Encounter - Eloina Gibbs LPN - 08/16/2024 10:54 AM EDT Forwarded to infusion team, provider and Mendoza [facility]06-27-2025 Telephone encounter Note* Telephone Encounter - Eloina Gibbs LPN - 08/16/2024 10:38 AM EDT MYC message sent to patient or clarification [facility]06-17-2025 Telephone encounter Note* Telephone Encounter - Rhiannon Bobo - 08/06/2024 9:58 AM EDT Ambulatory Pharmacy Prior Authorization Note Provider Intervention Required?: No - Pharmacy completed on your behalf. Was the PA documented within the ePA workqueue?: No Rx Plan: Medicaid [facility] ([facility]) Drug: Zavzpret 10MG/ACT solution Cover My Meds Chong: [id number] Determination: Approved Prior Authorization/Case #: [id number] Prior Authorization Expiration: 01/31/2025 Time to PA [...] Prescriptions will now be processed through [facility] for determination of next steps. For questions relating to this submission, please contact [facility] at [phone] [facility]06-17-2025 Miscellaneous Notes* Telephone Encounter - Rhiannon Bobo - 08/06/2024 9:58 AM EDT Ambulatory Pharmacy Prior Authorization Note Provider Intervention Required?: No - Pharmacy completed on your behalf. Was the PA documented within the ePA workqueue?: No Rx Plan: Medicaid [facility] ([facility]) Drug: Zavzpret 10MG/ACT solution Cover My Meds Chong: [id number] Determination: Approved Prior Authorization/Case #: [id number] Prior Authorization Expiration: 01/31/2025 Time to PA [...] Prescriptions will now be processed through [facility] for determination of next steps. For questions relating to this submission, please contact [facility] at [phone] documented in this encounterPremier Health [facility]06-16-2025 Instructions* Patient Instructions* Curtis Lepe PA-C - [...] more information and get the Copay Card: [email or web address] Administration: Nose to toes or head level (do not tilt head back). Single spray in one nostril as needed for migraine. Do not prime. One dose per 24 hours. Avoid use with severe hepatic impairment or creatinine clearance less than 30ml/min. No contraindication to take zavzpret with nurtec or another CGRP antagonist. Use copay card. 6 doses in container. documented in this encounterPremier Health [facility]06-13-2025 History of Present illness Narrative* Curtis Lepe [...] Lymph 1.00 - 4.00 k/uL 0.84 Abs Mckean <0.87 k/uL 0.06 Abs Eosin <0.46 k/uL [...] ZOLMitriptan (ZOMIG) 5 mg nasal spray^Use 1 Seminole in the nose as needed at onset [...] articulation, and clear,coherent, and relevant. 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 Level of service: [facility] level 2 (10-19 min). Time spent 18 min on the day of service, which included preparing to see the patient, [id number] patient care, completing clinical documentation, obtaining and/or [...] XL, Qudexy) Anti-Depressant and Antipsychotic Amitriptyline (Elavil) [place] (Eskalith, Lithobid) Nortriptyline (Pamelor, Aventyl) Blood Pressure Propranolol (Inderal) MABs Fremanezumab (Ajovy) Galcanezumab (Emgality) Botulinum Toxin Onabotulinum Toxin A (Botox) Supplements Magnesium The following abortive medications have been tried but require high frequency use which can lead toMedication Overuse Headache: Analgesic Ketorolac (Toradol) Anti-Migraine Dihydroergotamine (DHE-45, Migranal) Naratriptan (Amerge) Sumatriptan (Imitrex, Sumavel) Zolmitriptan (Zomig) Recording using [employer] software for draft documentation of the visit was discussed with the patient/authorized personal financial representative; all questions welcomed and answered. Patient/authorized personal financial representative agreed to proceed Curtis Lepe PA-C Headache Section [facility] August 02, 2024 documented in this encounterPremier Health [facility]06-13-2025 NoteHNO ID: [id number] Author: CURTIS LEPE PA-C Service: ? Author Type: Physician Savings Counselor Type: Progress Notes Filed: 08/05/2024 00:10 Note [...] Lymph 1.00 - 4.00 k/uL 0.84 Abs Mckean <0.87 k/uL 0.06 Abs Eosin <0.46 k/uL [...] ZOLMitriptan (ZOMIG) 5 mg nasal sprayUse 1 Seminole in the nose as needed at onset [...] in rate, volume a (more content not included)...[facility] 08-02-2024 NoteHNO ID: [id number] Author: ALKA TRENT RN Service: ? Author Type: Registered Nurse Type: Progress Notes Filed: 08/02/2024 12:53 Note Text: Patient in for day 1 of IV infusions. Patient rated headache 10/10. Patient stated severe nausea and mild dizziness. Patient educated on medications to be administered and a tractor driver teamster to transport home was confirmed. Patient verbalized understanding and agreed to proceed with infusions. PRn zofran and benadryl given PRN phenergan given Pts infusions complete. Pt tolerated infusion well. Pt rated headache 6/10. Pt stated mild nausea and moderate dizziness. Pt discharged from treatment room. [facility]06-13-2025 History of Present illness Narrative* Alka Trent RN - 08/02/2024 10:13 AM EDT Patient in for day 1 of IV infusions. Patient rated headache 10/10. Patient stated severe nausea and mild dizziness. Patient educated on medications to be administered and a tractor driver teamster to transport home was confirmed. Patient verbalized understanding and agreed to proceed with infusions. PRn zofran and benadryl given PRN phenergan given Pts infusions complete. Pt tolerated infusion well. Pt rated headache 6/10. Pt stated mild nausea and moderate dizziness. Pt discharged from treatment room. documented in this encounterPremier Health [facility]06-12-2025 NoteHNO ID: [id number] Author: CURTIS LEPE PA-C Service: ? Author Type: Physician Savings Counselor Type: Progress Notes Filed: 08/01/2024 13:20 Note Text: Okay to come in for 1 day of non DHE IV infusions tomorrow.[facility]06-12-2025 History of Present illness Narrative* Curtis [...] day 1 infusions. 1236 Patient discharged to tractor driver teamster headache pain unchanged. documented in this encounterPremier Health [facility]06-12-2025 NoteHNO ID: [id number] Author: LENNIE PALACIOS RN Service: ? Author [...] day 1 infusions. 1236 Patient discharged to tractor driver teamster headache pain unchanged.[facility]06-04-2025 History of Present illness Narrative* Halima Johns, POLICE INSPECTOR-LAUNCH OPERATOR - 07/24/2024 3:00 PM EDT Images from the original note were not included. Subjective CC: Infected toe/infection both eyes Patient ID: April Nicholson is a 28 y.o. female. CINTHIA Newberry presents with complaints of infection of right great toe. Relates had an infected toenail of her right great toe. States had a pedicure a few days ago, and podiatrist orthopedic cleaned out the ingrowntoenail region, and obtained a lot of green pus. States she also has had to do this in the past. Sandra feels the redness has improved, but is still sore to walk on the foot. Also relates both her eyes are light sensitive, puffy and feel bruised. This has been going on since mid-May. [facility] she talked to provider about this, and she tried taking allergy medication, along with allergy eye drops, but obtained no relief from these symptoms. Sandra states she follows up every 3 months with [facility] for migraines. Often times the last month [...] Nose: Nose normal. No rhinorrhea. Mouth/Throat: Lips: [place]. Mouth: Mucous membranes are moist. Pharynx: Oropharynx [...] De León 07/24/24 1707 documented in this encounterK[facility]tering [facility]05-16-2025 Telephone encounter Note* Telephone Encounter - Mendoza Dooley - 07/05/2024 3:08 PM EDT Images from the original note were not included. Left detailed voicemail message to schedule infusions [facility]05-16-2025 Miscellaneous Notes* Telephone Encounter - Mendoza Dooley - 07/05/2024 3:08 PM EDT Images from the original note were not included. Left detailed voicemail message to schedule infusions documented in this encounterPremier Health [facility]05-16-2025 Telephone encounter Note * Telephone Encounter - Kaye Lopez - 07/05/2024 12:22 PM EDT I have been unable to reach this patient by phone. A letter is being sent to the last known home address. [facility] 07/05, 07/12 Letter sent- 07/19 [facility] [id number] Miscellaneous Notes* This document contains information received [...] 8:59 AM EDT Approved or Denied?Approved Auth #[id number] Dates of span:06/25/2024 TO 09/24/2024 Method of contact:FAX * Telephone Encounter - Vita Velez - 07/02/2024 2:17 PM EDT Checked portal for PA Auth#[id number] still pending. * Telephone Encounter - Vita Velez - 06/25/2024 3:57 PM EDT Date initiated:06/25/2024 Insurance provider:Lyndsay Name of personal financial representative:portal(Urgent) Reference#:[id number] * Telephone Encounter - Viktoria Walton MS, [facility] - 06/25/2024 2:43 PM EDT Please preauthorize this patient for: CPT code for testin ICD-10 code for testing: Encounter Diagnoses Code Name Primary? Z84.89 Family history of genetic disorder Yes Ordering provider: Temo Name of test: Parental SNP Microarray Testing lab: [facility] Specimen requirement: isolated DNA Expected turnaround time: 2-3 weeks Is a Test Requisition Form required for this test: No Type of primary insurance (private or state HMO): State HMO ([place] [employer] [facility]) Secondary Medicaid too? (Y/N): No Did the patient apply for [facility]? (Y/N): No If Yes, is it approved (provide approval dates) or still waiting on approval?: no Is a new blood sample required?: No Special lab draw instructions (e.g. Must draw on Monday-Monday): n/a Order placement: Default release COMMENTS: [facility] Plan ID: [id number] * Telephone Encounter - Viktoria Walton MS, [...] Licensed, Certified Genetic Counselor documented in this [facility]05-16-2025 Telephone encounter Note* Telephone Encounter - Vita Velez - 07/05/2024 8:59 AM EDT Approved or Denied?Approved Auth #[id number] Dates of span:06/25/2024 TO 09/24/2024 Method of contact:FAX [facility]05-16-2025 History of Present illness Narrative* Neeraj Shane - 07/05/2024 8:39 AM EDT Received [facility] FAX Forward FAX to Supporting Admin documented in this [facility]05-15-2025 Instructions* Patient Instructions* Curtis Leep PA-C - 07/04/2024 11:24 AM EDT You [...] care. Infusions are done here at [facility] in the [facility]. Our infusion treatment room is where an [...] provider. It is best to have a tractor driver teamster, as some medications we use may cause drowsiness. If you do not have a tractor driver teamster, please let your nurse know and you [...] and heavy scented lotions. documented in this encounterPremier Health [facility]05-15-2025 History of Present illness Narrative* Curtis Lepe [...] visit. Either the patient or their legal personal financial representative has been informed of the risks [...] XL, Qudexy) Anti-Depressant and Antipsychotic Amitriptyline (Elavil) [place] (Eskalith, Lithobid) Nortriptyline (Pamelor, Aventyl) Anti-Migraine Dihydroergotamine [...] ZOLMitriptan (ZOMIG) 5 mg nasal spray^Use 1 Seminole in the nose as needed at onset [...] Lymph 1.00 - 4.00 k/uL 0.84 Abs Mckean <0.87 k/uL 0.06 Abs Eosin <0.46 k/uL [...] halfway memory, cognition and general fund of knowledgeare [...] XL, Qudexy) Anti-Depressant and Antipsychotic Amitriptyline (Elavil) [place] (Eskalith, Lithobid) Nortriptyline (Pamelor, Aventyl) Blood Pressure [...] course of IV infusions, and call office ([phone]) with problems or concerns before appointment Level of Service: Virtual Visit 32 minutes Recording using ambient [employer] software for draft documentation of the visit was discussed with the patient/authorized personal financial representative; all questions welcomed and answered. Patient/authorized personal financial representative agreed to proceed This note was partially generated using [employer] voice recognition system, and there may be some incorrect words, spellings, and punctuation that were not noted in checking the note before saving. Curtis Lepe PA-C Headache Section [facility] July 04, 2024 documented in this encounterPrem[facility] Health [facility]05-15-2025 NoteHNO ID: [id number] Author: CURTIS LEPE PA-C Service: ? Author Type: Physician Savings Counselor Type: Progress Notes Filed: 07/04/2024 13:48 Note [...] visit. Either the patient or their legal personal financial representative has been informed of the risks [...] their effectiveness. She identifies (more content not included)...[facility] 07-02-2024 Telephone encounter Note* Telephone Encounter - Vita Velez - 07/02/2024 2:17 PM EDT Checked portal for PA Auth#[id number] still pending. [facility] [id number] History of Present illness Narrative* Ammy Carrington, [...] in female 12/19/2022 Mixed bipolar I disorder ([facility]) 01/24/2023 Chronic migraine without aura without status migrainosus, not intractable ([facility]) 01/24/2023 Generalized anxiety disorder ([facility]) 01/24/2023 Persistent disorder of initiating or maintaining sleep 01/24/2023 Mild persistent asthma 01/24/2023 Polycystic ovaries 01/24/2023 Psychogenic nonepileptic seizure 01/24/2023 Class 3 severe obesity due to excess calories without serious comorbidity with body mass index (BMI) of 50.0 to 59.9 in adult 03/21/2023 Mild persistent asthma with (acute) exacerbation ([facility]) 10/10/2023 Fatigue 01/01/2024 [...] Acute exacerbation of asthma with allergic rhinitis ([facility]) Allergies Asthma At low risk for fall Bipolar affective, mixed (HCC) ([facility]) Change in blood pressure Cholecystitis 2008 Depressive disorder ([facility]) OMID (generalized anxiety disorder) ([facility]) History of hysterectomy 10/01/2021 Insomnia, persistent Migraines ([facility]) Mild persistent asthma without complication ([facility]) Morbid obesity with BMI of 40.0-44.9, adult ([facility]) PCOS (polycystic ovarian syndrome) Right otitis media Seizures ([facility]) HISTORY PAST MEDICAL HISTORY SOCIAL HISTORY Past Medical History: Diagnosis Date Acute exacerbation of asthma with allergic rhinitis ([facility]) Allergies Asthma At low risk for fall Bipolar affective, mixed (HCC) ([facility]) Change in blood pressure high and low Cholecystitis 2008 Chronic migraine without aura without status migrainosus, not intractable ([facility]) Depressive disorder ([facility]) OMID (generalized anxiety disorder) ([facility]) History of hysterectomy 10/01/2021 Insomnia, persistent Migraines ([facility]) Mild persistent asthma without complication ([facility]) Morbid obesity with BMI of 40.0-44.9, adult ([facility]) PCOS (polycystic ovarian syndrome) Psychogenic nonepileptic seizure Right otitis media Seizures ([facility]) stressed induced Social [...] of: Zay Blas DO documented in this encounterSouthPointe [id number] Telephone encounter Note* Telephone Encounter - Vita Velez - 06/25/2024 3:57 PM EDT Date initiated:06/25/2024 Insurance provider:Lyndsay Name of personal financial representative:portal(Urgent) Reference#:[id number] [facility] [id number] Telephone encounter Note* Telephone Encounter - Viktoria Walton MS, [facility] - 06/25/2024 2:43 PM EDT Please preauthorize this patient for: CPT code for testin ICD-10 code for testing: Encounter Diagnoses Code Name Primary? Z84.89 Family history of genetic disorder Yes Ordering provider: Temo Name of test: Parental SNP Microarray Testing lab: [facility] Specimen requirement: isolated DNA Expected turnaround time: 2-3 weeks Is a Test Requisition Form required for this test: No Type of primary insurance (private or state HMO): State HMO ([employer]) Secondary Medicaid too? (Y/N): No Did the patient apply for [facility]? (Y/N): No If Yes, is it approved (provide approval dates) or still waiting on approval?: no Is a new blood sample required?: No Special lab draw instructions (e.g. Must draw on Monday-Monday): n/a Order placement: Default release COMMENTS: [facility] Plan ID: [id number] [facility] [id number] Telephone encounter Note* Telephone Encounter - Viktoria Walton MS, [facility] - 06/25/2024 2:36 PM EDT GENETIC COUNSELOR ASSESSMENT A consultation was requested for Aprli Nicholson, a 28 year old female, for [...] MS, [place] Licensed, Certified Genetic Counselor [facility] [id number] Miscellaneous Notes* Telephone Encounter - Nirmala Lopez - 06/07/2024 1:17 PM EDT Contract: 148 No need to call documented in this encounterKet[facility]04-18-2025 Telephone encounter Note* Telephone Encounter - Nirmala Lopez - 06/07/2024 1:17 PM EDT Contract: 148 No need to call [facility]04-17-2025 History of Present illness Narrative* Corine Gold MD - 06/06/2024 4:30 PM EDT Images from the original note were not included. [address] [place] [phone] Patient: April Nicholson Date of : [...] Visit via Real-time Synchronous Audiovisual Provider Location: [facility] [address] [place] [phone] Patient Location: Patient's home Video Visit Consent [...] that there are some limitations compared to nirm-xd-djdy evaluations. The patient consented to the presence of additional virtual and/or in-person participants. We elected to proceed. CORINE GOLD MD Family Medicine Physician [facility] 06/06/24 This note was completed with voice recognition software. The document was reviewed for errors however some may still be present. Please do not hesitate to contact/[facility] the author to verify any questions/concerns. documented in this encounterKerbs Memorial HospitalTruMarx Data Partners [id number] Telephone encounter Note* Telephone Encounter - Amy [...] spray 12 each 5 Sig: Use 1 Seminole in the nose as needed at onset of migraine headache. If symptoms persist or return, may repeat dose in other nostril after 2 hours. Maximum of 2 sprays per 24 hours Last visit 05/03/2024 with Sherif HERNANDEZ Next scheduled Visit date not found [facility]04-14-2025 Miscellaneous Notes* Telephone Encounter - Amy Shrestha [...] spray 12 each 5 Sig: Use 1 [place] in the nose as needed at onset of migraine headache. If symptoms persist or return, may repeat dose in other nostril after 2 hours. Maximum of 2 sprays per 24 hours Last visit 05/03/2024 with Sherif HERNANDEZ Next scheduled Visit date not found documented in this encounterPremier Health [facility]04-[facility]-2025 History of Present illness Narrative* Rajinder Cotton DO - 05/21/2024 9:30 AM EDT Images from the original note were not included. [facility] [address] [place] [address] [place] [address] Patient: April Nicholson Date of : 1995 Encounter Date: 05/21/2024 Subjective: Chief Complaint Chief Complaint Patient presents with sinus infection History of Present Illness April Nicholson is a 28 y.o. female, established patient, that presents to the office for acute sinus congestion. History provided by patient. Sinus Problem This is a new problem. Episode onset: 4 days ago. Maximum temperature: [place] feverish. Associated symptoms include chills (With associated [...] and frontal sinus tenderness present. Mouth/Throat: Lips: [place]. No lesions. Mouth: Mucous membranes are moist. [...] 03/25/2024 Prolonged emergence from general anesthesia Seizure ([facility]) Last one 03-11-2024 Past Surgical History: Procedure Laterality Date APPENDECTOMY SECTION CHOLECYSTECTOMY [facility] LYSIS OF ADHESIONS N/A 03/28/2024 Performed by Mundo Martinez MD at [facility] LYSIS OF ADHESIONS N/A 03/28/2024 Performed by Jesse Sultana MD at [facility] [place]O OOPHORECTOMY/FROZEN SECTION Bilateral 03/28/2024 [...] Physical Activity: Insufficiently Active (01/23/2024) Received from [facility] Exercise Vital Sign Days of Exercise per Week: 7 days Minutes of Exercise per Session: 10 min Stress: Stress Concern Present (01/23/2024) Received from [facility] [place] [facility] - Occupational Stress Questionnaire Feeling of Stress : Rather much Social Connections: Socially Integrated (01/23/2024) Received from [facility] Social Connection and Isolation Panel [NHANES] Frequency of Communication with Friends and Family: More than three times a week Frequency of Social Gatherings with Friends and Family: Twice a week Attends Sabianist Services: More than 4 times per year [...] mg total) by mouth in the morning. pljzwgegwpr-hpflklqvg-rsrclpts (TRELEGY ELLIPTA) 200-62.5-25 mcg blister with device [...] DO 05/21/24 10:30 AM documented in this encounterBrecksville VA / Crille HospitalTapcentive, Inc. [facility] [id number] Instructions* Patient Instructions* Rajinder Cotton DO - [...] yeast infection from antibiotics documented in this encounterK[facility]03-26-2025 History of Present illness Narrative* MARY Cintron - 05/15/2024 8:30 AM EDT Subjective: April Nicholson is a 28 y.o. female who is s/p a laparoscopic BSO, FANNY on 03/28/24. Pathology: benign She unfortunately was admitted to [facility] on 04/08/24 after experiencing high fevers [...] 03/28/2024 Performed by Mundo Martinez MD at [facility] DV5 LYSIS OF ADHESIONS N/A 03/28/2024 Performed by Jesse Sultana MD at [facility] DV5 [place] OOPHORECTOMY/FROZEN SECTION Bilateral 03/28/2024 Performed by Mundo Martinez MD at [facility] DILATION AND CURETTAGE OF UTERUS PARTIAL [...] Physical Activity: Insufficiently Active (01/23/2024) Received from [facility] Exercise Vital Sign Days of Exercise per Week: 7 days Minutes of Exercise per Session: 10 min Stress: Stress Concern Present (01/23/2024) Received from [facility] [place] of [facility]ational [facility] - Occupational Stress Questionnaire Feeling of Stress : Rather much Social Connections: Socially Integrated (01/23/2024) Received from [facility] Social Connection and Isolation Panel [NHANES] Frequency of Communication with Friends and Family: More than three times a week Frequency of Social Gatherings with Friends and Family: Twice a week Attends Sabianist Services: More than 4 times per year [...] anomaly not found LOC (loss of consciousness) ([facility]) Migraine with aura [...] be continued by her PCP or primary javascript ui developer. Estradiol 1 mg tablet once daily PO. *The patient has a documented plan of care to address pain. All questions were answered to the patient's satisfaction. She is agreeable to this plan of care. *This note was completed using a voice gun stocker system. Every effort was made to ensure accuracy. However, inadvertent computerized gun stocker errors may be present. .Total time spent was 15 minutes: Preparing to see the patient (e.g., review of tests) Performing a medically appropriate examination and/or evaluation Counseling and educating the patient/family/caregiver Ordering medications, tests, or procedures Documenting clinical information in the electronic or other health record Care coordination (not separately reported) Svetlana Ye PA-C, RD, IF MARY Cintron 05/15/24 0913 documented in this encounterKerbs Memorial HospitalTruMarx Data Partners [id number] Telephone encounter Note* Telephone Encounter - Angely Cotton RN - 05/13/2024 9:19 AM EDT Ambulatory Pharmacy Prior Authorization Note Provider Intervention Required?: No - Pharmacy completed on your behalf. Was the PA documented within the [facility] workqueue?: No Rx Plan[facility] Drug: Ubrelvy 100MG tablets Cover My Meds Chnog: [id number] Determination: Approved Prior Authorization/Case #: [id number] Prior Authorization Expiration: 05/07/24 Time to PA [...] Prescriptions will now be processed through [facility] for determination of next steps. For questions relating to this submission, please contact [facility] at [phone] [facility] Work Phone: [phone] Miscellaneous Notes* Telephone Encounter - Angely Cotton RN - 05/13/2024 9:19 AM EDT Ambulatory Pharmacy Prior Authorization Note Provider Intervention Required?: No - Pharmacy completed on your behalf. Was the PA documented within the [facility] workqueue?: No Rx Plan: Medicaid MCO ([place]) Drug: Ubrelvy 100MG tablets Cover My Meds Chong: [id number] Determination: Approved Prior Authorization/Case #: [id number] Prior Authorization Expiration: 05/07/24 Time to PA [...] Prescriptions will now be processed through [facility] for determination of next steps. For questions relating to this submission, please contact [facility] at [phone] * Telephone Encounter - Angely Cotton RN - 05/08/2024 3:20 PM EDT [facility] received prescription(s) for Ubrelvy 100MG tablets . Benefits investigation was conducted, indicating that a prior authorization is required. All pertinent clinical information was submitted to insurance. Epic- Referral # [id number] Angely Cotton RN [facility] P: , F: * Telephone Encounter - Angely Cotton RN - 05/07/2024 10:[address] Lepe , Pt's ubrelvy needs a PA . I am unable to complete a PA since your office note is unfinished. Pleaselet me know when you have completed it and I will put in the PA tio. Thanks! Angely Cotton RN [facility] P: , F: documented in this encounterPrem[facility] Health [facility]03-19-2025 Telephone encounter Note * Telephone Encounter - Angely Cotton RN - 05/08/2024 3:20 PM EDT [facility] received prescription(s) for Ubrelvy 100MG tablets . Benefits investigation was conducted, indicating that a prior authorization is required. All pertinent clinical information was submitted to insurance. Epic- Referral # [id number] Angely Cotton RN [facility] P: , F: [facility]03-18-2025 Telephone encounter Note* Telephone Encounter - Angely Cotton RN - 05/07/2024 10:[address] Lepe , Pt's ubrelvy needs a PA . I am unable to complete a PA since your office note is unfinished. Pleaselet me know when you have completed it and I will put in the PA tio. Thanks! Angely Cotton RN [facility] P: , F: [facility]03-14-2025 Instructions* Patient Instructions* Curtsi Lepe PA-C - 05/03/2024 9:57 AM EDT Ubrogepant (Ubrelvy) 50 mg or 100 mg tablet CGRP antagonist. Take 1 tablet at onset of migraine/headache. May repeat dose in 2 hours if needed. Do NOT take morethan 2 tablets in 24 hours. Max dose is 200 mg in 24 hours. Potential side effects include drowsiness, nausea and dry mouth. PATIENT ASSISTANCE PROGRAM (PAP): https://www.c4cast.com.com/patients/patient-support/patient-assistance /eligibility-criteria.html#myabbvie - Start taking Ubrelvy as prescribed [...] your clinician as needed. documented in this encounterPremier Health [facility]03-14-2025 History of Present illness Narrative* Curtis Lepe [...] visit. Either the patient or their legal personal financial representative has been informed of the risks [...] XL, Qudexy) Anti-Depressant and Antipsychotic Amitriptyline (Elavil) [place] (Eskalith, Lithobid) Nortriptyline (Pamelor, Aventyl) Anti-Migraine Dihydroergotamine [...] ZOLMitriptan (ZOMIG) 5 mg nasal spray^Use 1 [place] in the nose as needed at onset [...] Lymph 1.00 - 4.00 k/uL 0.84 Abs Mckean <0.87 k/uL 0.06 Abs Eosin <0.46 k/uL [...] halfway memory, cognition and general fund of knowledgeare [...] XL, Qudexy) Anti-Depressant and Antipsychotic Amitriptyline (Elavil) [place] (Eskalith, Lithobid) Nortriptyline (Pamelor, Aventyl) Blood Pressure [...] XL, Qudexy) Anti-Depressant and Antipsychotic Amitriptyline (Elavil) [place] (Eskalith, Lithobid) Nortriptyline (Pamelor, Aventyl) Blood Pressure [...] time Follow-up: 2 months and call office ([phone]) with problems or concerns before appointment Level of Service: Virtual Visit 35 minutes The patient consented to the use of Bizzby software for draft documentation of the visit consistent with [facility] s Notice of Privacy Practices. This note was partially generated using [employer] voice recognition system, and there may be some incorrect words, spellings, and punctuation that were not noted in checking the note before saving. Curtis Lepe PA-C Headache Section [facility] May 03, 2024 documented in this encounterPremier Health [facility]03-14-2025 NoteHNO ID: [id number] Author: CURTIS LEPE PA-C Service: ? Author Type: Physician Savings Counselor Type: Progress Notes Filed: 05/08/2024 00:02 Note [...] visit. Either the patient or their legal personal financial representative has been informed of the risks [...] Migraine headache severity: 10/ (more content not included)...[facility]03-13-2025 NoteHNO ID: [id number] Author: CLAUDIA MAYNARD RN Service: ? Author [...] and agreeable to plan. 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 documented in this encounterPremier Health [facility]03-11-2025 Miscellaneous Notes* Telephone Encounter - Caterina Smith CMA - 04/30/2024 8:41 AM EDT Attempted to contact patient regarding refill sent in. No answer, left voicemail. documented in this encounterKettering [facility]03-11-2025 Telephone encounter Note* Telephone Encounter - Caterina Smith CMA - 04/30/2024 8:41 AM EDT Attempted to contact patient regarding refill sent in. No answer, left voicemail. [facility]03-10-2025 History of Present illness Narrative* MARY Cintron - 04/29/2024 2:20 PM EDT Patient called asking for refill of oxycodone for post op pain. Upon reviewing her OARRS it would appear she had Tylenol III refilled last week at [facility] [place], [place]. Discussed this with patient who states [...] post op pain. She expressed understanding. [facility] completing phone call with patient. Pharmacy staff confirmed prescription for Tylenol III was picked up on 3/3/25 with a receipt available to view. MARY Cintron 04/29/24 1440 documented in this encounterKettering Health [facility]03-10-2025 History of Present illness Narrative* SARAHI Champion - 04/29/2024 9:18 AM EDT The OARRS/MAPPS database was reviewed today and found to be appropriate. No indication of medication diversion, or non compliance. SARAHI Champion 04/29/24 0918 documented in this encounterKettering Health [facility]03-06-2025 History of Present illness Narrative* Corine Gold MD - 04/25/2024 1:00 PM EST Images from the original note were not included. [address] [place] [address] [facility] [id number] Patient: April Nicholson Date of : 1995 Encounter Date: 04/25/2024 SUBJECTIVE: HISTORY OF PRESENT ILLNESS: Chief Complaint: Chief Complaint Patient presents with [facility] Care Patient ID: April is a 28 [...] 4 special needs children Does require multimedia manager attention Previously had viapti infusion for migraine [...] 03/25/2024 Prolonged emergence from general anesthesia Seizure ([facility]) Last one 03-11-2024 PAST SURGICAL HISTORY: Past Surgical History: Procedure Laterality Date APPENDECTOMY SECTION CHOLECYSTECTOMY [facility] LYSIS OF ADHESIONS N/A 03/28/2024 Performed by Mundo Martinez MD at [facility] DV5 LYSIS OF ADHESIONS N/A 03/28/2024 Performed by Jesse Sultana MD at [facility] [place] OOPHORECTOMY/FROZEN SECTION Bilateral 03/28/2024 Performed by Mundo Martinez MD at [facility] DILATION AND CURETTAGE OF UTERUS PARTIAL [...] Physical Activity: Insufficiently Active (01/23/2024) Received from [facility] Exercise Vital Sign Days of Exercise per Week: 7 days Minutes of Exercise per Session: 10 min Stress: Stress Concern Present (01/23/2024) Received from [facility] [place] [facility] - Occupational Stress Questionnaire Feeling of Stress : Rather much Social Connections: Socially Integrated (01/23/2024) Received from [facility] Social Connection and Isolation Panel [NHANES] Frequency of Communication with Friends and Family: More than three times a week Frequency of Social Gatherings with Friends and Family: Twice a week Attends Sabianist Services: More than 4 times per year [...] TWO PUFFS BY MOUTH EVERY 4 HOURS [id number] g 1 cetirizine (ZyrTEC) 10 mg tablet Take 1 tablet (10 mg total) by mouth in the morning. 30 tablet 0 diazePAM (VALIUM) 10 mg tablet Take 0.5 tablets (5 mg total) by mouth in the morning and at bedtime. pmdhbbnzfwr-msuvbeodn-rosuemtx (TRELEGY ELLIPTA) 200-62.5-25 mcg blister with device [...] unremarkable. CORINE GOLD MD Family Medicine Physician [facility] 04/25/24 This note was completed with voice recognition software. The document was reviewed for errors however some may still be present. Please do not hesitate to contact/Epic ms the author to verify any questions/concerns. documented in this encounterKettering Health [facility]03-05-2025 History of Present illness Narrative* Alice Wright RN - 04/24/2024 3:13 PM EST Images from the original note were not included. [facility] pharmacy notified. Spoke with Leonie. MARY Cintron RN Up to twice daily, thanks! Previous Messages ----- Message ----- From: Alice Wright RN Sent: 04/24/2024 2:17 PM EST To: MARY Cintron [facility] pharmacy called for clarification on the lidocaine cream. How many times a day can she the cream? Please advise. Thank you, Rubi documented in this [facility]03-05-2025 History of Present illness Narrative* MARY Cintron - 04/24/2024 9:30 AM EST Subjective: April Nicholson is a 28 y.o. female who is s/p a laparoscopic BSO, FANNY on 03/28/24. Pathology: benign She unfortunately was admitted to [facility] on 04/08/24 after experiencing high fevers despite being on antibiotics. The patient stated that she completed a 7-day course of clindamycin post-operatively. Oneday prior to presentation to the ED, the patient had been evaluated at [facility] and was given 1 dose of [...] 03/28/2024 Performed by Mundo Martinez MD at [facility] DV5 LYSIS OF ADHESIONS N/A 03/28/2024 Performed by Jesse Sultana MD at [facility] [place]O OOPHORECTOMY/FROZEN SECTION Bilateral 03/28/2024 Performed by Mundo Martinez MD at [facility] DILATION AND CURETTAGE OF UTERUS PARTIAL [...] Physical Activity: Insufficiently Active (01/23/2024) Received from [facility] Exercise Vital Sign Days of Exercise per Week: 7 days Minutes of Exercise per Session: 10 min Stress: Stress Concern Present (01/23/2024) Received from [facility] [place] [facility] - Occupational Stress Questionnaire Feeling of Stress : Rather much Social Connections: Socially Integrated (01/23/2024) Received from [facility] Social Connection and Isolation Panel [NHANES] Frequency of Communication with Friends and Family: More than three times a week Frequency of Social Gatherings with Friends and Family: Twice a week Attends Sabianist Services: More than 4 times per year [...] anomaly not found LOC (loss of consciousness) ([facility]) Migraine with aura and without status migrainosus, not intractable Bilateral occipital neuralgia Asthma without status asthmaticus Anxiety Depressive disorder Seizure-like activity ([facility]) Simple partial seizure disorder ([facility]) Psychogenic nonepileptic seizure [...] *This note was completed using a voice gun stocker system. Every effort was made to ensure accuracy. However, inadvertent computerized gun stocker errors may be present. .Total time spent was 35 minutes: Preparing to see the patient (e.g., review of tests) Performing a medically appropriate examination and/or evaluation Counseling and educating the patient/family/caregiver Ordering medications, tests, or procedures Documenting clinical information in the electronic or other health record Care coordination (not separately reported) Svetlana Ye PA-C, RD, IF MARY Cintron 04/24/24 1228 documented in this encounterKettering Health [facility]03-03-2025 Telephone encounter Note* Telephone Encounter - Mendoza Dooley - 04/22/2024 4:23 PM EST Calls were returned to patient. Patient is scheduled for vyepti [facility]03-03-2025 Miscellaneous Notes* Telephone Encounter - Mendoza Dooley - 04/22/2024 4:23 PM EST Calls were returned to patient. Patient is scheduled for vyepti documented in this encounterPremier Health [facility]02-25-2025 History of Present illness Narrative* Yumiko Worrell [...] in female 12/19/2022 Mixed bipolar I disorder ([facility]) 01/24/2023 Chronic migraine without aura without status migrainosus, not intractable ([facility]) 01/24/2023 Generalized anxiety disorder ([facility]) 01/24/2023 Persistent disorder of initiating or maintaining sleep 01/24/2023 Mild persistent asthma ([facility]) 01/24/2023 Polycystic ovaries 01/24/2023 Psychogenic nonepileptic seizure ([facility]) 01/24/2023 Class 3 severe obesity due to excess calories without serious comorbidity with body mass index (BMI) of 50.0 to 59.9 in adult ([facility]) 03/21/2023 Mild persistent asthma with (acute) exacerbation ([facility]) 10/10/2023 Fatigue 01/01/2024 [...] Acute exacerbation of asthma with allergic rhinitis ([facility]) Allergies Asthma ([facility]) At low risk for fall Bipolar affective, mixed (HCC) ([facility]) Change in blood pressure Cholecystitis 2009 Depressive disorder ([facility]) OMID (generalized anxiety disorder) ([facility]) History of hysterectomy 10/01/2021 Insomnia, persistent Migraines ([facility]) Mild persistent asthma without complication ([facility]) Morbid obesity with BMI of 40.0-44.9, adult ([facility]) PCOS (polycystic ovarian syndrome) Right otitis media Seizures ([facility]) HISTORY PAST MEDICAL HISTORY SOCIAL HISTORY Past Medical History: Diagnosis Date Acute exacerbation of asthma with allergic rhinitis ([facility]) Allergies Asthma ([facility]) At low risk for fall Bipolar affective, mixed (HCC) ([facility]) Change in blood pressure high and low Cholecystitis 2008 Chronic migraine without aura without status migrainosus, not intractable ([facility]) Depressive disorder ([facility]) OMID (generalized anxiety disorder) ([facility]) History of hysterectomy 10/01/2021 Insomnia, persistent Migraines ([facility]) Mild persistent asthma without complication ([facility]) Morbid obesity with BMI of 40.0-44.9, adult ([facility]) PCOS (polycystic ovarian syndrome) Psychogenic nonepileptic seizure ([facility]) Right otitis media Seizures ([facility]) stressed induced Social [...] nursing note reviewed. Exam conducted with a bridge instructor present. Vitals: Estimated body mass index is [...] of: Zay Blas DO documented in this encounterSouthPointe [id number] History of Present illness Narrative* MARY Cintron - 04/15/2024 9:00 AM EST Subjective: April Nicholson is a 28 y.o. female who is s/p a laparoscopic BSO, FANNY on 03/28/24. Pathology: benign She unfortunately was admitted to [facility] on 04/08/24 after experiencing high fevers despite being on antibiotics. The patient stated that she completed a 7-day course of clindamycin post-operatively. Oneday prior to presentation to the ED, the patient had been evaluated at [facility] and was given 1 dose of [...] History: Procedure Laterality Date APPENDECTOMY SECTION CHOLECYSTECTOMY [place] [address] LYSIS OF ADHESIONS N/A 03/28/2024 Performed by Mundo Martinez MD at [place] [address] LYSIS OF ADHESIONS N/A 03/28/2024 Performed by Jesse Sultana MD at [place] [address] [place] OOPHORECTOMY/FROZEN SECTION Bilateral 03/28/2024 Performed by Mundo Martinez MD at [facility] DILATION AND CURETTAGE OF UTERUS PARTIAL HYSTERECTOMY 10/01/2021 TUBAL LIGATION Past Medical History: Diagnosis Date Anxiety Asthma BV (bacterial vaginosis) Depression Migraine 15 days out of the month-receives an infusion every 3 months MRSA (methicillin resistant Staphylococcus aureus) In a buttocks wound in 8th grade Ovarian cyst, bilateral 03/25/2024 Prolonged emergence from general anesthesia Seizure ([facility]) Last one 03-11-2024 Family History Problem Relation [...] Physical Activity: Insufficiently Active (01/23/2024) Received from [facility] Exercise Vital Sign Days of Exercise per Week: 7 days Minutes of Exercise per Session: 10 min Stress: Stress Concern Present (01/23/2024) Received from [facility] [place] [facility] Occupational [facility] - Occupational Stress Questionnaire Feeling of Stress : Rather much Social Connections: Socially Integrated (01/23/2024) Received from [facility] Social Connection and Isolation Panel [NHANES] Frequency of Communication with Friends and Family: More than three times a week Frequency of Social Gatherings with Friends and Family: Twice a week Attends Sabianist Services: More than 4 times per year [...] anomaly not found LOC (loss of consciousness) [place] Migraine with aura and without status migrainosus, not intractable Bilateral occipital neuralgia Asthma without status asthmaticus Anxiety Depressive disorder Seizure-like activity ([facility]) Simple partial seizure disorder ([facility] Psychogenic nonepileptic seizure Acute cough S/P bilateral [...] *This note was completed using a voice gun stocker system. Every effort was made to ensure accuracy. However, inadvertent computerized gun stocker errors may be present. .Total time spent was 35 minutes: Preparing to see the patient (e.g., review of tests) Performing a medically appropriate examination and/or evaluation Counseling and educating the patient/family/caregiver Ordering medications, tests, or procedures Documenting clinical information in the electronic or other health record Care coordination (not separately reported) Svetlana Ye PA-C, RD, IF MARY [place] 04/16/24 1237 documented in this encounterBrec[facility] Progress note* Discharge Planning Note - Desiree Theodore RN - 04/10/2024 3:04 PM EST DISCHARGE PLANNING NOTE Patient's RN reported that patient would like a rolling walker at discharge, Referral placed on [employer] with script and face to face documentation attached with a requestof delivery to patient's room today for discharge. Producer Director will follow for discharge transition - DESIREE THEODORE RN 04/10/24 3:05 PM [facility] [id number] Miscellaneous Notes* Discharge Planning Note - Desiree Theodore RN - 04/10/2024 3:04 PM EST DISCHARGE PLANNING NOTE Patient's RN reported that patient would like a rolling walker at discharge, Referral placed on [employer] with script and face to face documentation attached with a requestof delivery to patient's room today for discharge. Producer Director will follow for discharge transition - [...] rounds, barriers to discharge are: No barriers. [facility]. Patient states that she is not comfortable doing her own wound care. Has family that assist 4-5 times per week with wound care. Discharge Plan: Plan is home with HCC if able to find company to agree to care. Will arrange outpatient wound care if unable to find accepting HCC. Producer Director will continue to follow for any discharge needs. - Nicky Buchanan RN 04/10/24 10:38 AM * Plan of Care - Effie Keene RN - 04/10/2024 8:07 AM EST Problem: Pain Goal: Patient goal is pain score less than 4, able to rest, and participant in treatment plan as appropriate Description: INTERVENTIONS: 1. Encourage patient or legal personal financial representative to report early pain and ask [...] per policy 9. Teach patient or legal personal financial representative interventions for comforting Outcome: Progressing Note: [...] at the bedside 7. Instruct patient/ patient personal financial representative about use of safety devices 8. Include patient/ patient personal financial representative in decisions related to safety Outcome: [...] hygiene technique. 7. Identify and instruct patient/patient personal financial representative in use of appropriate isolation precautionsfor identified infection/symptoms. 8. Provide and discuss with patient/patient personal financial representative on educational MDRO sheet. 9. Encourage and monitor nutritional status daily and consult snow removing supervisor if indicated. 10. Implement neutropenic guidelines as needed. Outcome: Progressing Note: Evaluation of progress towards goal: Patient afebrile, vital signs stable at this time. Continuing to monitor. Problem: Knowledge Deficit Goal: Patient/patient personal financial representative demonstrates understanding of disease process, treatment [...] Score of =/> 25 or indicated by [facility] Assessment Goal: Patient should be free from fall Description: Interventions: 1. Rufus to environment 2. Hourly rounds addressing the [...] non-skid footwear 11. Teach patient and patient personal financial representative to maintain environment for safety and [...] (cane, walker) within reach 19. Request patient personal financial representative bring adaptive equipment/mobility aids from home or obtain and provide as needed 20. Consult pharmacy regarding effects of med's affecting mobility, cognition, and alternatives 21. Obtain physician order for PT if risk factors associated with mobility are present 22. Obtain physician order for OT as appropriate 23. Utilize diversional activities 24. Educate patient and patient personal financial representative how to maintain a safe environment during visitationtimes (notify nurse prior to leaving bedside) 25. Consider appropriateness of medical or non-medical office representative 26. Set up voiding schedule as appropriate (every 2 hours) Outcome: Progressing Note: Evaluation of progress towards goal: Patient remains free from falls at this time. Interventions in place to help prevent falls. Continuing to monitor. Problem: Low Risk Fall Score Description: Nath Fall Score of 0 - 24 or [facility] Goal: Patient should be free from fall Description: Interventions: 1. Rufus to environment 2. Hourly rounds addressing the [...] non-skid footwear 11. Teach patient and patient personal financial representative to maintain environment for safety and [...] Description: INTERVENTIONS: 1. Encourage patient or legal personal financial representative to report early pain and ask [...] per policy 9. Teach patient or legal personal financial representative interventions for comforting Outcome: Progressing Note: [...] at the bedside 7. Instruct patient/ patient personal financial representative about use of safety devices 8. Include patient/ patient personal financial representative in decisions related to safety Outcome: [...] hygiene technique. 7. Identify and instruct patient/patient personal financial representative in use of appropriate isolation precautionsfor identified infection/symptoms. 8. Provide and discuss with patient/patient personal financial representative on educational MDRO sheet. 9. Encourage and monitor nutritional status daily and consult snow removing supervisor if indicated. 10. Implement neutropenic guidelines as needed. Outcome: Progressing Note: Evaluation of progress towards goal: Standard precautions and hand hygiene used to prevent infection Problem: Knowledge Deficit Goal: Patient/patient personal financial representative demonstrates understanding of disease process, treatment [...] Collaborate with ancillary departments 14. Include patient/patient personal financial representative in decisions related to anxiety Outcome: [...] Score of =/> 25 or indicated by [facility] Assessment Goal: Patient should be free from fall Description: Interventions: 1. Rufus to environment 2. Hourly rounds addressing the [...] non-skid footwear 11. Teach patient and patient personal financial representative to maintain environment for safety and [...] (cane, walker) within reach 19. Request patient personal financial representative bring adaptive equipment/mobility aids from home or obtain and provide as needed 20. Consult pharmacy regarding effects of med's affecting mobility, cognition, and alternatives 21. Obtain physician order for PT if risk factors associated with mobility are present 22. Obtain physician order for OT as appropriate 23. Utilize diversional activities 24. Educate patient and patient personal financial representative how to maintain a safe environment during visitationtimes (notify nurse prior to leaving bedside) 25. Consider appropriateness of medical or non-medical office representative 26. Set up voiding schedule as appropriate [...] providing care 6. Collaborate with pastoral/spiritual care, administrator social welfare, mental health counselor as needed. 7. Instruct patient on diversional activities such as physical activity, distraction, and deep breathing exercises to assist with coping 8. Involve patient's personal financial representative in care Outcome: Completed Note: Evaluation of progress towards goal: completed * Discharge Planning Note - Nicky Buchanan RN - 04/09/2024 2:58 PM EST DISCHARGE PLANNING NOTE Update: [facility] unable to accept. Referrals for [facility] per patient choice sent. Waiting on reply. - Nicky Buchanan RN 04/09/24 2:59 PM * Discharge Planning Note - Nicky Buchanan RN - 04/09/2024 10:45 AM EST DISCHARGE PLANNING NOTE Patient Escort met with patient, introduced self, and explained role. Patient educated on safe discharge plan. Pt admitted 04/08/2024 with Abdominal wall cellulitis [L03.311] Sepsis ([facility] [A41.9] Postoperative surgical complication involving genitourinary system [...] Prolonged emergence from general anesthesia Seizure ([facility] Last one 03-11-2024 Prior to admission patient was living with family and self care. Medical equipment patient used prior to admission includes: None. Patient denies need for transportation/ food/ prescription medication assistance resources. Patient lives with minor children and boyfriend. Has support from mother. Referral sent to [facility] per patient choice- her daughter has used them before. PCP: CORINE GOLD MD Pharmacy:[facility] in [place] PCP and pharmacy confirmed with patient. CN [...] [facility] for assistance with wound care Will [...] Description: INTERVENTIONS: 1. Encourage patient or legal personal financial representative to report early pain and ask [...] per policy 9. Teach patient or legal personal financial representative interventions for comforting Outcome: Progressing Note: [...] at the bedside 7. Instruct patient/ patient personal financial representative about use of safety devices 8. Include patient/ patient personal financial representative in decisions related to safety Outcome: [...] hygiene technique. 7. Identify and instruct patient/patient personal financial representative in use of appropriate isolation precautionsfor identified infection/symptoms. 8. Provide and discuss with patient/patient personal financial representative on educational MDRO sheet. 9. Encourage and monitor nutritional status daily and consult snow removing supervisor if indicated. 10. Implement neutropenic guidelines as needed. Outcome: Progressing Note: Evaluation of progress towards goal: on iv atb. Cont to trend labs.fevers Problem: Knowledge Deficit Goal: Patient/patient personal financial representative demonstrates understanding of disease process, treatment [...] Collaborate with ancillary departments 14. Include patient/patient personal financial representative in decisions related to anxiety Outcome: [...] providing care 6. Collaborate with pastoral/spiritual care, administrator social welfare, mental health counselor as needed. 7. Instruct patient on diversional activities such as physical activity, distraction, and deep breathing exercises to assist with coping 8. Involve patient's personal financial representative in care Outcome: Progressing Note: Evaluation of progress towards goal: able to voice concerns. Problem: Moderate - High Risk Fall Score Description: Nath Fall Score of =/> 25 or indicated by [facility] Assessment Goal: Patient should be free from fall Description: Interventions: 1. Rufus to environment 2. Hourly rounds addressing the [...] non-skid footwear 11. Teach patient and patient personal financial representative to maintain environment for safety and [...] (cane, walker) within reach 19. Request patient personal financial representative bring adaptive equipment/mobility aids from home or obtain and provide as needed 20. Consult pharmacy regarding effects of med's affecting mobility, cognition, and alternatives 21. Obtain physician order for PT if risk factors associated with mobility are present 22. Obtain physician order for OT as appropriate 23. Utilize diversional activities 24. Educate patient and patient personal financial representative how to maintain a safe environment during visitationtimes (notify nurse prior to leaving bedside) 25. Consider appropriateness of medical or non-medical office representative 26. Set up voiding schedule as appropriate [...] Description: INTERVENTIONS: 1. Encourage patient or legal personal financial representative to report early pain and ask [...] per policy 9. Teach patient or legal personal financial representative interventions for comforting Note: Evaluation of [...] at the bedside 7. Instruct patient/ patient personal financial representative about use of safety devices 8. Include patient/ patient personal financial representative in decisions related to safety Note: [...] hygiene technique. 7. Identify and instruct patient/patient personal financial representative in use of appropriate isolation precautionsfor identified infection/symptoms. 8. Provide and discuss with patient/patient personal financial representative on educational MDRO sheet. 9. Encourage and monitor nutritional status daily and consult snow removing supervisor if indicated. 10. Implement neutropenic guidelines as needed. Note: Evaluation of progress towards goal: Wound culture pending. Iv zosyn, vanco, and flagyl administered 04/08. Problem: Knowledge Deficit Goal: Patient/patient personal financial representative demonstrates understanding of disease process, treatment [...] Collaborate with ancillary departments 14. Include patient/patient personal financial representative in decisions related to anxiety Note: [...] providing care 6. Collaborate with pastoral/spiritual care, administrator social welfare, mental health counselor as needed. 7. Instruct patient on diversional activities such as physical activity, distraction, and deep breathing exercises to assist with coping 8. Involve patient's personal financial representative in care Note: Evaluation of progress towards goal: Emotional support provided by RN and pts SO. documented in this encounterK[facility]-19-[facility] History of Present illness Narrative* George Pisano [...] DC later tonight Zain Pagan, MS3 [facility] Resident Attestation I have seen and evaluated the patient, and have also reviewed the documentation above. I have repeated and performed the chong portions of the physical exam and concur with the student's findings. I agree with the plan as noted above with any changes made as necessary. George Pisano MD [employer] Manager Resident PGY-1 04/10/24 7:50 AM If [...] PO antibiotics, home soon * Nicholas Osuna, [facility] - 04/09/2024 9:57 AM EST Pharmacokinetic Consult [...] Date/Time Wound culture superficial includes gram stain [[id number]] Collected: 04/08/242024 Specimen: Wound Swab Updated: 04/08/24 233 Gram Stain Result >25 WHITE BLOOD CELLS/LPF 0 SQUAMOUS EPITHELIAL CELLS/LPF FEW GRAM POSITIVE COCCI Culture PENDING Urine culture [[id number]] Collected: 04/08/24 1616 Specimen: Urine Updated: 04/08/24 1723 Blood culture [[id number]] Collected: 04/08/24 1411 Specimen: Blood Updated: 04/09/24 0229 Culture NO GROWTH <24 HRS SARS/FLU A+B/RSV by NAAT/Molecular (M4RT Collection Tube) [[id number]] Collected: 04/08/24 1403 Specimen: Nasopharynx Updated: 04/08/24 1506 FLU A PCR Negative FLU B PCR Negative RSV by PCR Negative SARS CoV 2 BY PCR Not Detected Blood culture [[id number]] Collected: 04/08/24 1343 Specimen: Blood Updated: 04/09/24 [...] you for consulting. Nicholas Osuna, PharmD, BCPS [id number] * Jaziel Crump MD - 04/09/2024 7:25 [...] of care per primary. Sherri Miranda MS3 [facility] 04/09/24 7:25 AM Jaziel Crump MD PGY-3 Surgery Resident 04/09/24 7:25 AM Cosigned by Benjamin Francis MD at 04/09/2024 10:19 PM EST Associated attestation - Benjamin Francis MD - 04/09/2024 10:19 PM EST documented in this encounterK[facility]02-19-2025 Progress note* Discharge Planning Note - Trudi Patel - 04/10/2024 11:15 AM EST DISCHARGE PLANNING NOTE Referral sent to multiple facilities or agencies due to patient insurance type/difficult placement/patient is without preference. [facility] [id number] Progress note* Discharge Planning Note - Nicky Buchanan RN - 04/10/2024 10:35 AM EST DISCHARGE PLANNING NOTE Per RN during discharge transition rounds, barriers to discharge are: No barriers. [facility]. Patient states that she is not comfortable doing her own wound care. Has family that assist 4-5 times per week with wound care. Discharge Plan: Plan is home with HCC if able to find company to agree to care. Will arrange outpatient wound care if unable to find accepting HCC. Producer Director will continue to follow for any discharge needs. - Nicky Buchanan RN 04/10/24 10:38 AM [facility] [id number] Plan of care note* Plan of Care - Effie Keene RN - 04/10/2024 8:07 AM EST Problem: Pain Goal: Patient goal is pain score less than 4, able to rest, and participant in treatment plan as appropriate Description: INTERVENTIONS: 1. Encourage patient or legal personal financial representative to report early pain and ask [...] per policy 9. Teach patient or legal personal financial representative interventions for comforting Outcome: Progressing Note: [...] at the bedside 7. Instruct patient/ patient personal financial representative about use of safety devices 8. Include patient/ patient personal financial representative in decisions related to safety Outcome: [...] hygiene technique. 7. Identify and instruct patient/patient personal financial representative in use of appropriate isolation precautionsfor identified infection/symptoms. 8. Provide and discuss with patient/patient personal financial representative on educational MDRO sheet. 9. Encourage and monitor nutritional status daily and consult snow removing supervisor if indicated. 10. Implement neutropenic guidelines as needed. Outcome: Progressing Note: Evaluation of progress towards goal: Patient afebrile, vital signs stable at this time. Continuing to monitor. Problem: Knowledge Deficit Goal: Patient/patient personal financial representative demonstrates understanding of disease process, treatment [...] be free from fall Description: Interventions: 1. Rufus to environment 2. Hourly rounds addressing the [...] non-skid footwear 11. Teach patient and patient personal financial representative to maintain environment for safety and [...] (cane, walker) within reach 19. Request patient personal financial representative bring adaptive equipment/mobility aids from home or obtain and provide as needed 20. Consult pharmacy regarding effects of med's affecting mobility, cognition, and alternatives 21. Obtain physician order for PT if risk factors associated with mobility are present 22. Obtain physician order for OT as appropriate 23. Utilize diversional activities 24. Educate patient and patient personal financial representative how to maintain a safe environment during visitationtimes (notify nurse prior to leaving bedside) 25. Consider appropriateness of medical or non-medical office representative 26. Set up voiding schedule as appropriate (every 2 hours) Outcome: Progressing Note: Evaluation of progress towards goal: Patient remains free from falls at this time. Interventions in place to help prevent falls. Continuing to monitor. Problem: Low Risk Fall Score Description: Nath Fall Score of 0 - 24 or indicated by [facility] Assessment Goal: Patient should be free from fall Description: Interventions: 1. Rufus to environment 2. Hourly rounds addressing the [...] non-skid footwear 11. Teach patient and patient personal financial representative to maintain environment for safety and engage in all aspects of fall prevention program Outcome: Progressing Note: Evaluation of progress towards goal: Patient remains free from falls at this time. Interventions in place to help prevent falls. Continuing to monitor. [facility]02-[facility] Hospital course Narrative* George Pisano MD - 04/10/2024 7:53 AM EST Inpatient Discharge Summary BRIEF OVERVIEW Admitting Provider: Primary Care Physician at Discharge: Admission Date: 04/08/2024 Discharge Date: 04/10/24 Procedures: Bedside I&D for abdominal abscess HPI: April Nicholson is a 28 y.o. female who presented to [facility] ED on 04/08/2024 with hx of abdominal pain and fever. 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 The patient stated that she completed a 7-day course of clindamycin post-operatively. One day prior to presentation to the ED, the patient had been evaluated at [facility] and was given 1 dose of [...] 200 mg given BID during inpatient stay [place] carbonate 600 mg PO given qd during [...] Zaki Gupta 04/10/24 3rd Year Medical Student, [employer] Resident Attestation I have seen and evaluated the patient, and have also reviewed the documentation above. I have repeated and performed the chong portions of the physical exam and concur with the student's findings. I agree with the plan as noted above with any changes made as necessary. George Pisano MD Offshore Wind Operations Manager Resident PGY-1 04/10/24 9:39 AM Cosigned [...] note, unless otherwise specified. documented in this encounterK[facility]02-18-2025 Plan of care note * Plan of Care - Corby Bojorquez RN - 04/09/2024 7:31 PM EST Problem: Pain Goal: Patient goal is pain score less than 4, able to rest, and participant in treatment plan as appropriate Description: INTERVENTIONS: 1. Encourage patient or legal personal financial representative to report early pain and ask [...] per policy 9. Teach patient or legal personal financial representative interventions for comforting Outcome: Progressing Note: [...] at the bedside 7. Instruct patient/ patient personal financial representative about use of safety devices 8. Include patient/ patient personal financial representative in decisions related to safety Outcome: [...] hygiene technique. 7. Identify and instruct patient/patient personal financial representative in use of appropriate isolation precautionsfor identified infection/symptoms. 8. Provide and discuss with patient/patient personal financial representative on educational MDRO sheet. 9. Encourage and monitor nutritional status daily and consult snow removing supervisor if indicated. 10. Implement neutropenic guidelines as needed. Outcome: Progressing Note: Evaluation of progress towards goal: Standard precautions and hand hygiene used to prevent infection Problem: Knowledge Deficit Goal: Patient/patient personal financial representative demonstrates understanding of disease process, treatment [...] Collaborate with ancillary departments 14. Include patient/patient personal financial representative in decisions related to anxiety Outcome: [...] be free from fall Description: Interventions: 1. Rufus to environment 2. Hourly rounds addressing the [...] non-skid footwear 11. Teach patient and patient personal financial representative to maintain environment for safety and [...] (cane, walker) within reach 19. Request patient personal financial representative bring adaptive equipment/mobility aids from home or obtain and provide as needed 20. Consult pharmacy regarding effects of med's affecting mobility, cognition, and alternatives 21. Obtain physician order for PT if risk factors associated with mobility are present 22. Obtain physician order for OT as appropriate 23. Utilize diversional activities 24. Educate patient and patient personal financial representative how to maintain a safe environment during visitationtimes (notify nurse prior to leaving bedside) 25. Consider appropriateness of medical or non-medical office representative 26. Set up voiding schedule as appropriate [...] providing care 6. Collaborate with pastoral/spiritual care, administrator social welfare, mental health counselor as needed. 7. Instruct patient on diversional activities such as physical activity, distraction, and deep breathing exercises to assist with coping 8. Involve patient's personal financial representative in care Outcome: Completed Note: Evaluation of progress towards goal: completed [employer]02-18-2025 Progress note* Discharge Planning Note - Nicky Buchanan RN - 04/09/2024 2:58 PM EST DISCHARGE PLANNING NOTE Update[facility] Referrals for [place] and [facility] per patient choice sent. Waiting on reply. - Nicky Buchanan RN 04/09/24 2:59 PM [employer]02-18-2025 Progress note* Discharge Planning Note - Nicky Buchanan RN - 04/09/2024 10:45 AM EST DISCHARGE PLANNING NOTE Patient Escort met with patient, introduced self, and explained role. Patient educated on safe discharge plan. Pt admitted 04/08/2024 with Abdominal wall cellulitis [L03.311] Sepsis ([facility]) [A41.9] Postoperative surgical [...] 03/25/2024 Prolonged emergence from general anesthesia Seizure ([facility]) Last one 03-11-2024 Prior to admission patient was living with family and self care. Medical equipment patient used prior to admission includes: None. Patient denies need for transportation/ food/ prescription medication assistance resources. Patient lives with minor children and boyfriend. Has support from mother. Referral sent to [facility] per patient choice- her daughter has used them before. PCP: CORINE GOLD MD Pharmacy:[facility] in [place] PCP and pharmacy confirmed with patient. CN [...] - Nicky Buchanan RN 04/09/24 10:46 AM [id number] Consult note* George Pisano MD - 04/09/2024 7:52 AM EST Gynecology Oncology Consultation Date of Admission: 04/08/2024 1:04 PM Chief Complaint : Chief Complaint Patient presents with Flu Symptoms Abdominal Pain History of Present Illness : April Nicholson is a 28 y.o. 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 She went [facility] ED yesterday and was given 1 [...] 03/25/2024 Prolonged emergence from general anesthesia Seizure ([facility]) Last one 03-11-2024 Past Surgical History: Past Surgical History: Procedure Laterality Date APPENDECTOMY SECTION CHOLECYSTECTOMY [facility] LYSIS OF ADHESIONS N/A 03/28/2024 [facility] LYSIS OF ADHESIONS N/A 03/28/2024 Performed by Jesse Sultana MD at [facility] [place] OOPHORECTOMY/FROZEN SECTION Bilateral 03/28/2024 Performed by Mundo Martinez MD at [facility] DILATION AND CURETTAGE OF UTERUS PARTIAL [...] Physical Activity: Insufficiently Active (01/23/2024) Received from [facility] Exercise Vital Sign Days of Exercise per Week: 7 days Minutes of Exercise per Session: 10 min Stress: Stress Concern Present (01/23/2024) Received from [facility] [place] [employer] - Occupational Stress Questionnaire Feeling of Stress : Rather much Social Connections: Socially Integrated (01/23/2024) Received from [facility] Social Connection and Isolation Panel [NHANES] Frequency of Communication with Friends and Family: More than three times a week Frequency of Social Gatherings with Friends and Family: Twice a week Attends Sabianist Services: More than 4 times per year [...] If questions or concerns, please contact via [facility] pager at [phone]. Resident Attestation I have seen and evaluated the patient, and have also reviewed the documentation above. I have repeated and performed the chong portions of the physical exam and concur with the student's findings. I agree with the plan as noted above with any changes made as necessary. George Pisano MD [employer] Resident PGY-1 04/09/24 7:52 AM Cosigned [...] Will initiate transdermal estrogen for vasomotor symptoms. [facility]02-18-2025 Plan of care note* Plan of Care - Fredi Lowe RN - 04/09/2024 7:52 AM EST Problem: Pain Goal: Patient goal is pain score less than 4, able to rest, and participant in treatment plan as appropriate Description: INTERVENTIONS: 1. Encourage patient or legal personal financial representative to report early pain and ask [...] per policy 9. Teach patient or legal personal financial representative interventions for comforting Outcome: Progressing Note: [...] at the bedside 7. Instruct patient/ patient personal financial representative about use of safety devices 8. Include patient/ patient personal financial representative in decisions related to safety Outcome: [...] hygiene technique. 7. Identify and instruct patient/patient personal financial representative in use of appropriate isolation precautionsfor identified infection/symptoms. 8. Provide and discuss with patient/patient personal financial representative on educational MDRO sheet. 9. Encourage and monitor nutritional status daily and consult snow removing supervisor if indicated. 10. Implement neutropenic guidelines as needed. Outcome: Progressing Note: Evaluation of progress towards goal: on iv atb. Cont to trend labs.fevers Problem: Knowledge Deficit Goal: Patient/patient personal financial representative demonstrates understanding of disease process, treatment [...] Collaborate with ancillary departments 14. Include patient/patient personal financial representative in decisions related to anxiety Outcome: [...] providing care 6. Collaborate with pastoral/spiritual care, administrator social welfare, mental health counselor as needed. 7. Instruct patient on diversional activities such as physical activity, distraction, and deep breathing exercises to assist with coping 8. Involve patient's personal financial representative in care Outcome: Progressing Note: Evaluation of progress towards goal: able to voice concerns. Problem: Moderate - High Risk Fall Score Description: Nath Fall Score of =/> 25 or indicated by [facility] Assessment Goal: Patient should be free from fall Description: Interventions: 1. Rufus to environment 2. Hourly rounds addressing the [...] non-skid footwear 11. Teach patient and patient personal financial representative to maintain environment for safety and [...] (cane, walker) within reach 19. Request patient personal financial representative bring adaptive equipment/mobility aids from home or obtain and provide as needed 20. Consult pharmacy regarding effects of med's affecting mobility, cognition, and alternatives 21. Obtain physician order for PT if risk factors associated with mobility are present 22. Obtain physician order for OT as appropriate 23. Utilize diversional activities 24. Educate patient and patient personal financial representative how to maintain a safe environment during visitationtimes (notify nurse prior to leaving bedside) 25. Consider appropriateness of medical or non-medical office representative 26. Set up voiding schedule as appropriate (every 2 hours) Outcome: Progressing Note: Evaluation of progress towards goal: free from falls, cont to use nonskid footwear with ambulation. Pt instructed to call out when appropriate to aid with ambulation [employer]02-18-2025 Consult note* George Pisano MD - 04/09/2024 7:52 AM EST Gynecology Oncology Consultation Date of Admission: 04/08/2024 1:04 PM Chief Complaint : Chief Complaint Patient presents with Flu Symptoms Abdominal Pain History of Present Illness : April Nicholson is a 28 y.o. 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 She went [facility] ED yesterday and was given 1 [...] 03/25/2024 Prolonged emergence from general anesthesia Seizure ([facility]) Last one 03-11-2024 Past Surgical History: Past Surgical History: Procedure Laterality Date APPENDECTOMY SECTION CHOLECYSTECTOMY [facility] LYSIS OF ADHESIONS N/A 03/28/2024 Performed by Mundo Martinez MD at [facility] LYSIS OF ADHESIONS N/A 03/28/2024 Performed by Jesse Sultana MD at [facility] [place] OOPHORECTOMY/FROZEN SECTION Bilateral 03/28/2024 Performed by Mundo Martinez MD at [facility] DILATION AND CURETTAGE OF UTERUS PARTIAL [...] Physical Activity: Insufficiently Active (01/23/2024) Received from [facility] Exercise Vital Sign Days of Exercise per Week: 7 days Minutes of Exercise per Session: 10 min Stress: Stress Concern Present (01/23/2024) Received from [facility] [place] [facility] [employer] - Occupational Stress Questionnaire Feeling of Stress : Rather much Social Connections: Socially Integrated (01/23/2024) Received from [facility] Social Connection and Isolation Panel [NHANES] Frequency of Communication with Friends and Family: More than three times a week Frequency of Social Gatherings with Friends and Family: Twice a week Attends Sabianist Services: More than 4 times per year [...] or concerns, please contact via [facility] pager at [phone]. Resident Attestation I have seen and evaluated the patient, and have also reviewed the documentation above. I have repeated and performed the chong portions of the physical exam and concur with the student's findings. I agree with the plan as noted above with any changes made as necessary. George Pisano MD [employer] Manager Resident PGY-1 04/09/24 7:52 AM Cosigned [...] 03/25/2024 Prolonged emergence from general anesthesia Seizure ([facility]) Last one 03-11-2024 Past Surgical History: Procedure Laterality Date APPENDECTOMY SECTION CHOLECYSTECTOMY [facility] LYSIS OF ADHESIONS N/A 03/28/2024 Performed by Mundo Martinez MD at [facility] LYSIS OF ADHESIONS N/A 03/28/2024 Performed by Jesse Sultana MD at [facility] [place] OOPHORECTOMY/FROZEN SECTION Bilateral 03/28/2024 Performed by Mundo Martinez MD at [facility] DILATION AND CURETTAGE OF UTERUS PARTIAL [...] to allergen)., Disp: 2 each, Rfl: 1 tvgulpnqdbx-wegngicsi-wleaurie (TRELEGY ELLIPTA) 200-62.5-25 mcg blister with device, [...] Resource Strain: Low Risk (01/23/2024) Received from [facility] Overall Financial Resource Strain (CARDIA) Difficulty of Paying Living Expenses: Not very hard Food Insecurity: No Food Insecurity (02/09/2024) Hunger Screening Food Insecurity - Worry: Never True Food Insecurity - Inability: Never True Transportation Needs: Unknown (01/23/2024) Received from [facility] PRAPARE - Transportation Lack of Transportation (Medical): Patient declined Lack of Transportation (Non-Medical): No Physical Activity: Insufficiently Active (01/23/2024) Received from [facility] Exercise Vital Sign Days of Exercise per Week: 7 days Minutes of Exercise per Session: 10 min Stress: Stress Concern Present (01/23/2024) Received from [facility] [place] [employer] - Occupational Stress Questionnaire Feeling of Stress : Rather much Social Connections: Socially Integrated (01/23/2024) Received from [facility] Social Connection and Isolation Panel [NHANES] Frequency of Communication with Friends and Family: More than three times a week Frequency of Social Gatherings with Friends and Family: Twice a week Attends Sabianist Services: More than 4 times per year Active Member of Clubs or Organizations: Yes Attends Club or Organization Meetings: More than 4 times per year Marital Status: Living with partner Interpersonal Safety: Not on file Housing Instability: Low Risk (01/23/2024) Received from [facility] Housing Stability Vital Sign Unable to [...] General Surgery B 6a - 6p Pager: [phone] 6p - 6a Pager: [phone] Cosigned by Benjamin Francis MD at 04/09/2024 9:48 AM EST Associated attestation - Benjamin Francis MD - 04/09/2024 9:48 AM EST Attending attestation: I reviewed the resident's note and discussed the case with the resident. Additional findings/notes: Local wound care. Will sign-off. Benjamin Francis MD, [facility] General Surgery and Minimally Invasive Surgery [address] [place] [address], [address] [place] [address] Office: [facility] Plan of care note * Plan of Care - Lo Peres RN - 04/09/2024 4:51 AM EST Problem: Pain Goal: Patient goal is pain score less than 4, able to rest, and participant in treatment plan as appropriate Description: INTERVENTIONS: 1. Encourage patient or legal personal financial representative to report early pain and ask [...] per policy 9. Teach patient or legal personal financial representative interventions for comforting Note: Evaluation of [...] at the bedside 7. Instruct patient/ patient personal financial representative about use of safety devices 8. Include patient/ patient personal financial representative in decisions related to safety Note: [...] hygiene technique. 7. Identify and instruct patient/patient personal financial representative in use of appropriate isolation precautionsfor identified infection/symptoms. 8. Provide and discuss with patient/patient personal financial representative on educational MDRO sheet. 9. Encourage and monitor nutritional status daily and consult snow removing supervisor if indicated. 10. Implement neutropenic guidelines as needed. Note: Evaluation of progress towards goal: Wound culture pending. Iv zosyn, vanco, and flagyl administered 04/08. Problem: Knowledge Deficit Goal: Patient/patient personal financial representative demonstrates understanding of disease process, treatment [...] Collaborate with ancillary departments 14. Include patient/patient personal financial representative in decisions related to anxiety Note: [...] providing care 6. Collaborate with pastoral/spiritual care, administrator social welfare, mental health counselor as needed. 7. Instruct patient on diversional activities such as physical activity, distraction, and deep breathing exercises to assist with coping 8. Involve patient's personal financial representative in care Note: Evaluation of progress towards goal: Emotional support provided by RN and pts SO. [facility]02-17-2025 Procedure note* Jaziel Crump MD - 04/08/2024 [...] I reviewed the resident's note. Additional Notes/Findings: [facility]02-17-2025 Procedure note* Jaziel Crump MD - 04/08/2024 [...] resident's note. Additional Notes/Findings: [facility] Consult note* Kinsey Toussaint MD - 04/08/2024 [...] 03/25/2024 Prolonged emergence from general anesthesia Seizure ([facility]) Last one 03-11-2024 Past Surgical History: Procedure Laterality Date APPENDECTOMY SECTION CHOLECYSTECTOMY [facility] LYSIS OF ADHESIONS N/A 03/28/2024 Performed by Mundo Martinez MD at [place] [id number] LYSIS OF ADHESIONS N/A 03/28/2024 Performed by Jesse Sultana MD at [facility] [place] OOPHORECTOMY/FROZEN SECTION Bilateral 03/28/2024 Performed by Mundo Martinez MD at [facility] DILATION AND CURETTAGE OF UTERUS PARTIAL [...] to allergen)., Disp: 2 each, Rfl: 1 gdqqskworzl-wdpuupazn-apdzibdb (TRELEGY ELLIPTA) 200-62.5-25 mcg blister with device, [...] Resource Strain: Low Risk (01/23/2024) Received from [facility] Overall Financial Resource Strain (CARDIA) Difficulty of Paying Living Expenses: Not very hard Food Insecurity: No Food Insecurity (02/09/2024) Hunger Screening Food Insecurity - Worry: Never True Food Insecurity - Inability: Never True Transportation Needs: Unknown (01/23/2024) Received from [facility] - Transportation Lack of Transportation (Medical): Patient declined Lack of Transportation (Non-Medical): No Physical Activity: Insufficiently Active (01/23/2024) Received from [facility] Exercise Vital Sign Days of Exercise per Week: 7 days Minutes of Exercise per Session: 10 min Stress: Stress Concern Present (01/23/2024) Received from [facility] [place] [employer] - Occupational Stress Questionnaire Feeling of Stress : Rather much Social Connections: Socially Integrated (01/23/2024) Received from [facility] Social Connection and Isolation Panel [NHANES] Frequency of Communication with Friends and Family: More than three times a week Frequency of Social Gatherings with Friends and Family: Twice a week Attends Sabianist Services: More than 4 times per year Active Member of Clubs or Organizations: Yes Attends Club or Organization Meetings: More than 4 times per year Marital Status: Living with partner Interpersonal Safety: Not on file Housing Instability: Low Risk (01/23/2024) Received from [facility] Housing Stability Vital Sign Unable to [...] General Surgery B 6a - 6p Pager: [phone] 6p - 6a Pager: [phone] Cosigned by Benjamin Francis MD at 04/09/2024 9:48 AM EST Associated attestation - Benjamin Francis MD - 04/09/2024 9:48 AM EST Attending attestation: I reviewed the resident's note and discussed the case with the resident. Additional findings/notes: Local wound care. Will sign-off. Benjamin Francis MD, [facility] General Surgery and Minimally Invasive Surgery [address] [place] [address], [address] [place] [address] Office: [facility] Work Phone: [phone] 110-914702-17-2025 Physician Emergency department Note* Yordy Melton, DO - 04/08/2024 1:32 PM EST Images from the original note were not included. [facility] - EMERGENCY DEPARTMENT Pt Name: April Nicholson [...] states that she was recently evaluated at [facility] yesterday and was given Keflex and [...] 03/25/2024 Prolonged emergence from general anesthesia Seizure ([facility]) Last one 03-11-2024 Past Surgical History: Past Surgical History: Procedure Laterality Date APPENDECTOMY SECTION CHOLECY[facility]OMY [facility] LYSIS OF ADHESIONS N/A 03/28/2024 Performed by Mundo Martinez MD at [facility] LYSIS OF ADHESIONS N/A 03/28/2024 Performed by Jesse Sultana MD at [facility] [place] OOPHORECTOMY/FROZEN SECTION Bilateral 03/28/2024 Performed by Mundo Martinez MD at [facility] DILATION AND CURETTAGE OF UTERUS PARTIAL [...] Physical Activity: Insufficiently Active (01/23/2024) Received from [facility] Exercise Vital Sign Days of Exercise per Week: 7 days Minutes of Exercise per Session: 10 min Stress: Stress Concern Present (01/23/2024) Received from [facility] [place] [facility] [employer] [facility] - Occupational Stress Questionnaire Feeling of Stress : Rather much Social Connections: Socially Integrated (01/23/2024) Received from [facility] Social Connection and Isolation Panel [NHANES] Frequency of Communication with Friends and Family: More than three times a week Frequency of Social Gatherings with Friends and Family: Twice a week Attends Sabianist Services: More than 4 times per year [...] nursing note reviewed. Exam conducted with a bridge instructor present. Constitutional: General: She is in acute [...] Given 04/08/24 1640) lidocaine-EPINEPHrine (XYLOCAINE W/EPI) 1 %-1:[id number] injection 30 mL (20 mL intradermal Given [...] and physical exam, pt requires admission to [facility] for IV antibiotics, pain control, general surgery [...] [JR] 1322 Pain Score: 10 [JR] 1406 [facility] evaluating patient at bedside [JR] 1413 X-ray [...] 12 lead Sinus tachycardia, heart rate 103, KS interval 134, QRS 75, QTC 427. No [...] [facility]lex and [...] 4:29 PM Comment Diagnosis: Abdominal wall cellulitis [125940] Attending Provider: MILAD HERNANDEZ [[id number]] Estimated length of stay?: >2 midnights/In-patient only [...] Attestation: I, Dr. Melton personally performed a wtul-vc-xvxv diagnostic evaluation on this patient. I have [...] Resident 04/08/242000 Yordy Melton DO 04/09/24 0734 [facility] Work Phone: [phone] Emergency department Note* Yordy Melton DO - 04/08/2024 1:32 PM EST Images from the original note were not included. [facility] EMER[facility]Y DEPART[facility] Pt Name: April Nicohlson Birthdate: 1995 Chief Complaint: Chief Complaint Patient [...] states that she was recently evaluated at [facility] yesterday and was given Keflex and [...] 03/25/2024 Prolonged emergence from general anesthesia Seizure ([facility]) Last one 03-11-2024 Past Surgical History: Past Surgical History: Procedure Laterality Date APPENDECTOMY SECTION CHOLECY[facility]OMY [facility] LYSIS OF ADHESIONS N/A 03/28/2024 Performed by Mundo Martinez MD at [facility] LYSIS OF ADHESIONS N/A 03/28/2024 Performed by Jesse Sultana MD at [facility] [place] OOPHORECTOMY/FROZEN SECTION Bilateral 03/28/2024 Performed by Mundo Martinez MD at [facility] DILATION AND CURETTAGE OF UTERUS PARTIAL [...] Physical Activity: Insufficiently Active (01/23/2024) Received from [facility] Exercise Vital Sign Days of Exercise per Week: 7 days Minutes of Exercise per Session: 10 min Stress: Stress Concern Present (01/23/2024) Received from [facility] [place] [employer] - Occupational Stress Questionnaire Feeling of Stress : Rather much Social Connections: Socially Integrated (01/23/2024) Received from [facility] Social Connection and Isolation Panel [NHANES] Frequency of Communication with Friends and Family: More than three times a week Frequency of Social Gatherings with Friends and Family: Twice a week Attends Sabianist Services: More than 4 times per year [...] nursing note reviewed. Exam conducted with a bridge instructor present. Constitutional: General: She is in acute [...] intravenous Given 04/08/241639) lidocaine-EPINEPHrine (XYLOCAINE W/EPI) 1 %-1:[id number] injection 30 mL (20 mL intradermal Given [...] and physical exam, pt requires admission to [facility] for IV antibiotics, pain control, general surgery [...] [JR] 1322 Pain Score: 10 [JR] 1406 [facility] evaluating patient at bedside [JR] 1413 X-ray [...] 12 lead Sinus tachycardia, heart rate 103, KS interval 134, QRS 75, QTC 427. No [...] [facility] and [...] 4:29 PM Comment Diagnosis: Abdominal wall cellulitis [261314] Attending Provider: MILAD HERNANDEZ [[id number]] Estimated length of stay?: >2 midnights/In-patient only [...] Attestation: I, Dr. Melton personally performed a nmso-kx-iohx diagnostic evaluation on this patient. I have [...] requesting labs in back. documented in this encounterK[facility] Emergency department Note* Tim Jeffery CNA - 04/08/2024 11:29 AM EST Pt tearful in triage, lots of recent blood draws, requesting labs in back. [facility]02-17-[facility] Miscellaneous Notes* Telephone Encounter - Sofia Ku CMA - 04/08/2024 8:53 AM EST Patient called reporting persistent fever of 105 F that is not reducing with medication. She has been to the ED in [place] multiple times and has been sent home every time. She also reports pain andgreen drainage from her surgical incision. Spoke to Svetlana Ye PA-C; she recommends that patient visit [facility] ED and and wants to inform patient that our team and residents will be able to round on her there. Patient is agreeable to plan. documented in this encounterK[facility]02-17-2025 Telephone encounter Note* Telephone Encounter - Sofia Ku CMA - 04/08/2024 8:53 AM EST Patient called reporting persistent fever of 105 F that is not reducing with medication. She has been to the ED in [place] multiple times and has been sent home every time. She also reports pain andgreen drainage from her surgical incision. Spoke to Svetlana Ye PA-C; she recommends that patient visit [facility] ED and and wants to inform patient that our team and residents will be able to round on her there. Patient is agreeable to plan. [facility]02-11-[facility] History of Present illness Narrative* Yumiko Worrell [...] 01/24/2023 Polycystic ovaries 01/24/2023 Psychogenic nonepileptic seizure ([facility]) 01/24/2023 Class 3 severe obesity due to excess calories without serious comorbidity with body mass index (BMI) of 50.0 to 59.9 in adult ([facility]) 03/21/2023 Mild persistent asthma with (acute) exacerbation ([facility]) 10/10/2023 Fatigue 01/01/2024 [...] Acute exacerbation of asthma with allergic rhinitis ([facility]) Allergies Asthma ([facility]) At low risk for fall Bipolar affective, mixed (HCC) ([facility]) Change in blood pressure Cholecystitis 2008 Depressive disorder ([facility]) OMID (generalized anxiety disorder) ([facility]) History of hysterectomy 10/01/2021 Insomnia, persistent Migraines (CMS/[facility]) Mild persistent asthma without complication ([facility]) Morbid obesity with BMI of 40.0-44.9, adult ([facility]) PCOS (polycystic ovarian syndrome) Right otitis media Seizures ([facility]/HCC) HISTORY PAST MEDICAL HISTORY SOCIAL HISTORY Past Medical History: Diagnosis Date Acute exacerbation of asthma with allergic rhinitis ([facility]) Allergies Asthma ([facility]) At low risk for fall Bipolar affective, mixed (HCC) ([facility]) Change in blood pressure high and low Cholecystitis 2008 Chronic migraine without aura without status migrainosus, not intractable ([facility]) Depressive disorder ([facility]) OMID (generalized anxiety disorder) ([facility]) History of hysterectomy 10/01/2021 Insomnia, persistent Migraines (CMS/HCC) Mild persistent asthma without complication ([facility]) Morbid obesity with BMI of 40.0-44.9, adult ([facility]) PCOS (polycystic ovarian syndrome) Psychogenic nonepileptic seizure ([facility]) Right otitis media Seizures (CMS/[facility]) stressed induced Social [...] nursing note reviewed. Exam conducted with a bridge instructor present. Vitals: Estimated body mass index is [...] of: Zay Blas DO documented in this encounterSouthPointe [id number] Miscellaneous Notes* Telephone Encounter - Jania Garrett CMA - 04/01/2024 11:12 AM EST Images from the original note were not included. Medication Received: Yesterday April Nicholson [facility] Clinical Staff Hello good afternoon I m [...] see how she was feeling today. Our LAUNCH OPERATOR wanted to make sure that she's not having any nausea, vomiting, fever or chills. The patient didn't answer, so I left her a message. documented in this encounterK[facility]02-10-2025 Telephone encounter Note* Telephone Encounter - Jania Garrett CMA - 04/01/2024 11:12 AM EST Images from the original note were not included. Medication Received: Yesterday [facility] Clinical Staff Hello good afternoon I m [...] see how she was feeling today. Our LAUNCH OPERATOR wanted to make sure that she's not having any nausea, vomiting, fever or chills. The patient didn't answer, so I left her a message. [facility]02-10[facility] History of Present illness Narrative* MARY Cintron [...] MARY Cintron 04/01/24 1107 documented in this encounterKettering [facility]02-10-2025 Miscellaneous Notes* Telephone Encounter - Samira Hartman [...] with her sick child. documented in this encounterKettering [facility]02-10-2025 Telephone encounter Note* Telephone Encounter - Samira [...] pain meds also. Message to Svetlana HERNANDEZ. [facility]02-10-[facility]25 Telephone encounter Note* Telephone Encounter - Samria Hartman RN - 04/01/2024 11:03 AM EST Oxycodone refilled by Junior HERNANDEZ. TC to April to let her know. Reminded her of post op restrictions,, medication safety, and alternating with ibuprofen .She states she does not have Ibuprofen. Message to Svetlana to prescribe. Acknowledged understanding She states her mom is now helping her with her sick child. [facility]02-03-2025 Instructions* Patient Instructions* Mari Saldaña RN - 03/25/2024 2:15 PM EST Your [facility]24 at 9am Arrival Time: 7am [facility] Address: [address] [place] [address] Park in Parking lot located on [facility]. Report to the Entrance B. Check in at the information desk the surgery. The waiting room located on the second floor. If you have any questions prior to surgery, please call Pre-Admission Clinic at [phone] between 7:30 am and 4:30 pm Monday through Monday. If you have questions the morning of surgery, please call the Pre-op Department at [phone]. Notify your SURGEON if you develop any [...] piercings ,hair extensions that contain metal, nail maltese, make-up, and contact lens. You may brush [...] RIGHTS AND RESPONSIBILITIES As a patient at [facility], you have the right to: Receive medical care and be informed of who is taking care of you Be treated with dignity and respect Have a family member/personal financial representative of choice and your physician notified of your admission Receive information and actively participate in decisions about your care and treatment Refuse care, treatment and services Decide who may provide your support and speak for you Access bahai and spiritual services Participate in ethical issues [...] of hospital charges and payment methods Patient/patient personal financial representative responsibilities are to: Provide information about [...] surgery in clean clothes. documented in this encounterKettering [facility]01-30-2025 Miscellaneous Notes* Telephone Encounter - Nicky Zapata - 03/21/2024 11:47 AM EST ----- Message from Dr. Mundo Martinez MD sent at 03/21/2024 11:39 AM EST ----- Should be ok ----- Message ----- From: Nicky Zapata Sent: 03/21/2024 9:43 AM EST To: Mundo Martinez MD Pt is going up to the [facility] tomorrow and getting migraine infusion [...] of Dr. Martinez response documented in this encounterKettering [facility]01-30-2025 Telephone encounter Note* Telephone Encounter - Nicky Zapata - 03/21/2024 11:47 AM EST ----- Message from Dr. Mundo Martinez MD sent at 03/21/2024 11:39 AM EST ----- Should be ok ----- Message ----- From: Nicky Zapata Sent: 03/21/2024 9:43 AM EST To: Mundo Martinez MD Pt is going up to the [facility] tomorrow and getting migraine infusion Vyepti infusion for migranies, during the infusion pt will get Toradol and benadryl, patient has surgery next week and she wants to make sure this infusion is ok to take and will not delay surgery, please advise. [facility]01-30-2025 Telephone encounter Note* Telephone Encounter - Nicky Zapata - 03/21/2024 11:47 AM EST Pt was notified of Dr. Martinez response [facility]01-30-2025 NoteHNO ID: [id number] Author: SAGAR BARTH APRN.LAUNCH OPERATOR Service: ? Author Type: Nurse Practitioner [...] visit. Either the patient or their legal personal financial representative has been informed of the risks [...] XL, Qudexy) Anti-Depressant and Antipsychotic Amitriptyline (Elavil) [place] (Eskalith, Lithobid) Nortriptyline (Pamelor, Aventyl) Anti-Migraine Dihydroergotamine [...] ZOLMitriptan (ZOMIG) 5 mg nasal sprayUse 1 Seminole in the nose as needed at onset [...] capsule by mouth ann (more content not included)...[facility]01-30-2025 History of Present illness Narrative* Sagar Barth APRN.LAUNCH OPERATOR - 03/21/2024 8:48 AM EST Images from [...] visit. Either the patient or their legal personal financial representative has been informed of the risks [...] XL, Qudexy) Anti-Depressant and Antipsychotic Amitriptyline (Elavil) [place] (Eskalith, Lithobid) Nortriptyline (Pamelor, Aventyl) Anti-Migraine Dihydroergotamine [...] ZOLMitriptan (ZOMIG) 5 mg nasal spray^Use 1 Seminole in the nose as needed at onset [...] these with the patient: yes Sagar Barth APRN.LAUNCH OPERATOR HEADACHE SCORES: 12/05/2023 01/17/2024 03/20/2024 Headache [...] Lymph 1.00 - 4.00 k/uL 0.84 Abs Mckean <0.87 k/uL 0.06 Abs Eosin <0.46 k/uL [...] halfway memory, cognition and general fund of knowledgeare [...] XL, Qudexy) Anti-Depressant and Antipsychotic Amitriptyline (Elavil) [place] (Eskalith, Lithobid) Nortriptyline (Pamelor, Aventyl) Blood Pressure [...] 30 minutes Sagar Barth APRN.FADY Headache Section [facility] March 21, 2024 documented in this encounterPrem[facility]01-29-2025 History of Present illness Narrative* Vincent Peña, [...] previously seen pulmonary with Dr. Jason at [facility]. She has been treated with Trelegy [...] Asthma BV (bacterial vaginosis) Depression Migraine Seizure ([facility]) Past Surgical History: Procedure Laterality Date APPENDECTOMY [...] (exposure to allergen). 06/07/22 Yes ELSIE Luke rlcoxfeksuc-zogoogdqz-iqpogdyf (TRELEGY ELLIPTA) 100-62.5-25 mcg blister with device [...] chest is warranted. Dr. Vincent Peña DO. [facility] Office: [phone] documented in this encounterKettering Health [facility]01-27-2025 History of Present illness Narrative* Mundo Martinez [...] which is why she doesn't go to [place] or [place]. She has had diarrhea for the last [...] lot of steroids. 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 Last hospitalized a couple years ago. Not [...] Asthma BV (bacterial vaginosis) Depression Migraine Seizure ([facility]) Lamictal for non-epileptiform seizure and depression/anxiety [...] anomaly not found LOC (loss of consciousness) ([facility]) Migraine with aura and without status migrainosus, [...] procedures Referring and communicating with other health managed care liaison (not separately reported) Documenting clinical information in the electronic or other health record Independently interpreting results (not separately reported) and communicating results to the patient/family/caregiver Care coordination (not separately reported) [place] and lamictal, trazodone as needed MUNDO MARTINEZ MD documented in this encounterKettering Health [facility]01-15-2025 History of Present illness Narrative* Yumiko Worrell [...] in female 12/19/2022 Mixed bipolar I disorder ([facility]) 01/24/2023 Chronic migraine without aura without status migrainosus, not intractable ([facility]) 01/24/2023 Generalized anxiety disorder ([facility]) 01/24/2023 Persistent disorder of initiating or maintaining sleep 01/24/2023 Mild persistent asthma ([facility]) 01/24/2023 Polycystic ovaries 01/24/2023 Psychogenic nonepileptic seizure ([facility]) 01/24/2023 Class 3 severe obesity due to excess calories without serious comorbidity with body mass index (BMI) of 50.0 to 59.9 in adult ([facility]) 03/21/2023 Mild persistent asthma with (acute) exacerbation ([facility]) 10/10/2023 Fatigue 01/01/2024 [...] Acute exacerbation of asthma with allergic rhinitis ([facility]) Allergies Asthma ([facility]) At low risk for fall Bipolar affective, mixed ([facility]) ([facility]) Change in blood pressure Cholecystitis 2009 Depressive disorder ([facility]) OMID (generalized anxiety disorder) ([facility]) History of hysterectomy 10/01/2021 Insomnia, persistent Migraines ([facility]) Mild persistent asthma without complication ([facility]) Morbid obesity with BMI of 40.0-44.9, adult ([facility]) PCOS (polycystic ovarian syndrome) Right otitis media Seizures ([facility]) HISTORY PAST MEDICAL HISTORY SOCIAL HISTORY Past Medical History: Diagnosis Date Acute exacerbation of asthma with allergic rhinitis ([facility]) Allergies Asthma ([facility]) At low risk for fall Bipolar affective, mixed (HCC) ([facility]) Change in blood pressure high and low Cholecystitis 2008 Chronic migraine without aura without status migrainosus, not intractable ([facility]) Depressive disorder ([facility]) OMID (generalized anxiety disorder) ([facility]) History of hysterectomy 10/01/2021 Insomnia, persistent Migraines ([facility]) Mild persistent asthma without complication ([facility]) Morbid obesity with BMI of 40.0-44.9, adult ([facility]) PCOS (polycystic ovarian syndrome) Psychogenic nonepileptic seizure ([facility]) Right otitis media Seizures ([facility]) stressed induced Social [...] nursing note reviewed. Exam conducted with a bridge instructor present. Vitals: Estimated body mass index is [...] of: Zay Blas DO documented in this encounterSouthPointe [id number] History of Present illness Narrative* Yumiko Worrell [...] in female 12/19/2022 Mixed bipolar I disorder ([facility]) 01/24/2023 Chronic migraine without aura without status migrainosus, not intractable ([facility] 01/24/2023 Generalized anxiety disorder ([facility]) 01/24/2023 Persistent disorder of initiating or maintaining sleep 01/24/2023 Mild persistent asthma ([facility]) 01/24/2023 Polycystic ovaries 01/24/2023 Psychogenic nonepileptic seizure ([facility]) 01/24/2023 Class 3 severe obesity due to excess calories without serious comorbidity with body mass index (BMI) of 50.0 to 59.9 in adult ([facility]) 03/21/2023 Mild persistent asthma with (acute) exacerbation ([facility]) 10/10/2023 Fatigue 01/01/2024 [...] Acute exacerbation of asthma with allergic rhinitis ([facility]) Allergies Asthma ([facility]) At low risk for fall Bipolar affective, mixed (HCC) ([facility]) Change in blood pressure Cholecystitis 2009 Depressive disorder ([facility]) OMID (generalized anxiety disorder) ([facility]) History of hysterectomy 10/01/2021 Insomnia, persistent Migraines (CMS/HCC) Mild persistent asthma without complication (CMS/HCC) Morbid obesity with BMI of 40.0-44.9, adult ([facility]) PCOS (polycystic ovarian syndrome) Right otitis media Seizures ([facility]) HISTORY PAST MEDICAL HISTORY SOCIAL HISTORY Past Medical History: Diagnosis Date Acute exacerbation of asthma with allergic rhinitis (CMS/HCC) Allergies Asthma (CMS/HCC) At low risk for fall Bipolar affective, mixed (HCC) ([facility]) Change in blood pressure high and low Cholecystitis 2008 Chronic migraine without aura without status migrainosus, not intractable ([facility]) Depressive disorder ([facility]) OMID (generalized anxiety disorder) ([facility]) History of hysterectomy 10/01/2021 Insomnia, persistent Migraines (CMS/HCC) Mild persistent asthma without complication ([facility]) Morbid obesity with BMI of 40.0-44.9, adult ([facility]) PCOS (polycystic ovarian syndrome) Psychogenic nonepileptic seizure ([facility]) Right otitis media Seizures ([facility]) stressed induced Social [...] nursing note reviewed. Exam conducted with a bridge instructor present. Vitals: Estimated body mass index is [...] of: Zay Blas DO documented in this encounterNOCrossroads Regional Medical [id number] Telephone encounter Note* Telephone Encounter - Claudia Lemon - 02/26/2024 1:05 PM EST Pt advised [facility] [id number] Miscellaneous Notes* Telephone Encounter - Claudia Lemon - 02/26/2024 1:05 PM EST Pt advised * Telephone Encounter - Mesha Zelaya LPN - 02/26/2024 11:25 AM EST UNABLE TP ACCEPT PT * Telephone Encounter - Claudia Lemon - 02/26/2024 11:12 AM EST Patients elizabeth harmon is gma and they are both pts of DB. 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 And if not db she asked for dominic. Pt does know we are not accepting new patients but asked if I could send this back - was told no on Monday. documented in this encounterSouthPointe [id number] Telephone encounter Note* Telephone Encounter - Mesha Zelaya LPN - 02/26/2024 11:25 AM EST UNABLE TP ACCEPT PT SouthPointe [id number] Telephone encounter Note* Telephone Encounter - Claudia Lemon - 02/26/2024 11:12 AM EST Patients elizabeth harmon is gma and they are both pts of DB. 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 And if not db she asked for dominic. Pt does know we are not accepting new patients but asked if I could send this back - was told no on Monday. SouthPointe [id number] Telephone encounter Note* Telephone Encounter - Jannette Castrejon, PRATIBHA - 02/22/2024 12:02 PM ESTSumderik: MARY Jordan Images from the original note were not included. Prior Authorization submitted via CoverMyMeds on 02/22/2024: Insurance: [place] Medicaid Medication: Zolmitriptan Chong Code: [id number] Awaiting Response [facility]01-02-2025 Miscellaneous Notes* Telephone Encounter - Jannette Castrejon RN - 02/22/2024 12:02 PM ESTSummary: MARY Zolmitriptan Images from the original note were not included. Prior Authorization submitted via CoverMyMeds on 02/22/2024: Insurance: [place] Medicaid Medication: Zolmitriptan Chong Code: [id number] Awaiting Response documented in this encounterPremier Health [facility]12-20-[facility] History of Present illness Narrative* Lamont Blair MD - 02/09/2024 12:19 PM ESTAssociated Problem(s): Mild persistent asthma with (acute) exacerbation ([facility]) Recent flare but [...] and wo IV contrast documented in this encounterSouthPointe [id number] Note* Addendum Note - Sagar Barth APRN.CNP - 01/30/2024 2:59 PM ESTAddended by: SAGAR BARTH on: 01/30/2024 02:59 PM Modules accepted: Orders [facility]12-10-2024 Telephone encounter Note* Telephone Encounter - Sagar Barth APRN.CNP - 01/30/2024 2:59 PM EST The following approved medication requests have been transmitted electronically. Requested Prescriptions Signed Prescriptions Disp Refills ZOLMitriptan (ZOMIG) 5 mg nasal spray 12 Each 5 Sig: Use 1 Seminole in the nose as needed at onset of migraine headache. If symptoms persist or return, may repeat dose in other nostril after 2 hours. Maximum of 2 sprays per 24 hours Authorizing Provider: SAGAR BARTH APRN.CNP [facility]12-10-2024 Miscellaneous Notes* Addendum Note - Sagar Barth APRN.CNP - 01/30/2024 2:59 PM ESTAddended by: SAGAR BARTH on: 01/30/2024 02:59 PM Modules accepted: Orders * Telephone Encounter - Sagar Barth APRN.CNP - 01/30/2024 2:59 PM EST The following approved medication requests have been transmitted electronically. Requested Prescriptions Signed Prescriptions Disp Refills ZOLMitriptan (ZOMIG) 5 mg nasal spray 12 Each 5 Sig: Use 1 Semin[place] in the nose as needed at onset [...] Each 5 11/10/2023 -- Sig: Use 1 [place]inole in the nose as needed at onset [...] to verify quantity on zolmitriptan. Callback number: [phone] documented in this encounterPrem[facility] Telephone encounter Note * Telephone Encounter - Sagar Barth APRN.CNP - 01/30/2024 2:56 PM EST Dispense 12 pls. I rewrote the rx. Sagar Barth APRN.CNP [facility]12-09-2024 Telephone encounter Note* Telephone Encounter - Amy Shrestha MA - 01/29/2024 11:18 AM EST Per last Rx on 11/10/2023: Disp Refills Start End ZOLMitriptan (ZOMIG) 5 mg nasal spray 10 Each 5 11/10/2023 -- Sig: Use 1 [place] in the nose as needed at onset of migraine headache. If symptoms persist or return, may repeat dose in other nostril after 2 hours. Maximum of 2 sprays per 24 hours I called the pharmacy and hey need to know if Provider would like to dispense #6 or #12 cartridges.They do not come in 10. Please advise. Thank you [facility]12-09-2024 Telephone encounter Note* Telephone Encounter - Kelsey Patel - 01/29/2024 10:51 AM EST Name of Caller: nicky Relationship to patient: pharmacy Last visit in this department: 09/19/2023 Reason for Call: Other : need to verify quantity on zolmitriptan. Callback number: [phone] [facility]12-03-2024 History of Present illness Narrative* Lamont Blair MD - 01/23/2024 1:55 PM ESTAssociated Problem(s): SOB (shortness of breath) on exertion Severe symptom and check CXR. Use albuterol PRN and start prednisone. * Lamont Blair MD - 01/23/2024 1:55 PM ESTAssociated Problem(s): Mild persistent asthma with (acute) exacerbation ([facility]) Continued symptoms and [...] panel CBC and differential documented in this encounterSouthPointe [id number] NoteHNO ID: [id number] Author: GETACHEW DOMINGO RN Service: ? Author Type: Registered Nurse Type: Progress Notes Filed: 01/22/2024 15:58 Note Text: Pt in for third day of infusion. Pt rated headache 9/10. Pt has severe nausea and moderate dizziness. Educated pt on medications to be administered. Pt agreed to proceed as ordered. Director Learning And Development yes Patient reports she stopped vomiting but nausea is still pretty severe. She continues to retain fluids, hands and lower extremities appear puffy, non pitting edema. Mohamed Hamdan, LAUNCH OPERATOR aware, patient seen. Patient referred to pcp [...] room via wheelchair to her in the lobby.[facility]12-02-2024 History of Present illness Narrative* Getachew Domingo RN - 01/22/2024 2:18 PM EST Pt in for third day of infusion. Pt rated headache 9/10. Pt has severe nausea and moderate dizziness. Educated pt on medications to be administered. Pt agreed to proceed as ordered. Director Learning And Development yes Patient reports she stopped vomiting but [...] her in the lobby. documented in this encounterPremier [facility]12-02-2024 NoteHNO ID: [id number] Author: RAIZA SHIELDS APRN.LAUNCH OPERATOR Service: ? Author Type: Nurse Practitioner [...] Lymph 1.00 - 4.00 k/uL 0.84 Abs Mckean <0.87 k/uL 0.06 Abs Eosin <0.46 k/uL [...] ZOLMitriptan (ZOMIG) 5 mg nasal sprayUse 1 Seminole in the nose as needed at onset [...] service, which included p (more content not included)...[facility]12-02-2024 History of Present illness Narrative* Raiza Shields APRN.LAUNCH OPERATOR - 01/22/2024 1:30 PM EST Images from [...] Lymph 1.00 - 4.00 k/uL 0.84 Abs Mckean <0.87 k/uL 0.06 Abs Eosin <0.46 k/uL [...] ZOLMitriptan (ZOMIG) 5 mg nasal spray^Use 1 [place] in the nose as needed at onset [...] articulation, and clear,coherent, and relevant. 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 Raiza Shields APRN.FADY Headache Section [facility] January 22, 2024 documented in this encounterPremier Health [facility]11-29-2024 NoteHNO ID: [id number] Author: GETACHEW DOMINGO RN Service: ? Author Type: Registered Nurse Type: Progress Notes Filed: 01/19/2024 11:55 Note Text: Pt in for second day of infusion. Pt rated headache 10/10. Pt has severe nausea and severe dizziness. Educated pt on medications to be administered. Pt agreed to proceed as ordered. Director Learning And Development: yes Patient took Valium 10 mg tabl [...] Pt d/c via wheelchair to her [facility]. Instructed patient and to take caution with ambulating. Patient is feeling sedated.[facility]11-29-2024 History of Present illness Narrative* Getachew Domingo RN - 01/19/2024 9:37 AM EST Pt in for second day of infusion. Pt rated headache 10/10. Pt has severe nausea and severe dizziness. Educated pt on medications to be administered. Pt agreed to proceed as ordered. Director Learning And Development: yes Patient took Valium 10 mg tabl [...] Pt d/c via wheelchair to her in [facility]. Instructed patient and to take caution with ambulating. Patient is feeling sedated. documented in this encounterPremier [facility]11-27-2024 NoteHNO ID: [id number] Author: CLAUDIA MAYNARD RN Service: ? Author [...] PRN Zofran given for nausea. 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 documented in this encounterPremier Health [facility]11-27-2024 NoteHNO ID: [id number] Author: ОЛЬГА SHABAZZ APRN.LAUNCH OPERATOR Service: ? Author Type: Nurse Practitioner Type: Progress Notes Filed: 01/17/2024 07:59 Note Text: Headache Center - Virtual Visit Infusion Triage This visit was conducted as a virtual visit, with patient's permission, via ZOOM. It required patient-provider interaction for the medical decision making as documented below. Patient stated name and Patient location [place], [place] I have communicated my name and active licensure. The patient's identity and physical location were verified at the time of this visit. Either the patient or their legal personal financial representative has been informed of the risks [...] [place], New health events/diagnosis since last visit (AZ/stroke/DM/HTN/etc): denies Cardiovascular risk factors: obesity Past infusion [...] Lymph 1.00 - 4.00 k/uL 0.84 Abs Mckean <0.87 k/uL 0.06 Abs Eosin <0.46 k/uL <0.03 Abs Baso <0.11 k/uL <0.03 NRBC /100 WBC 0.0 Analgesic Ketorolac (Toradol) Anti-Convulsant Lamotrigine (Lamictal) Topiramate (Topamax, Trokendi XL, Qudexy) Anti-Depressant and Antipsychotic Amitriptyline (Elavil) [place] (Eskalith, Lithobid) Nortriptyline (Pamelor, Aventyl) Anti-Migraine Dihydroergotamine [...] 1 Sp (more content not included)... [facility]11-26-2024 Telephone encounter Note* Telephone Encounter - Michelle Givens RN - 01/16/2024 9:25 AM EST PAPO: 12/05/2023 with Ольга Shabazz APRN.LAUNCH OPERATOR [facility]11-26-2024 Miscellaneous Notes* Telephone Encounter - Michelle Givens RN - 01/16/2024 9:25 AM EST PAPO: 12/05/2023 with Ольга Shabazz APRN.LAUNCH OPERATOR documented in this encounterPremier Health [facility]11-19-2024 History of Present illness Narrative* Lamont Blair [...] and follow with specialists. Mild persistent asthma ([facility]) - Primary Class 3 severe obesity due to excess calories without serious comorbidity with body mass index (BMI) of 50.0 to 59.9 in adult ([facility]) Patient overweight and [...] (Ultram) 50 MG tablet documented in this encounterSouthPointe HospitalEaoimakllw13-31-1125 NoteHNO ID: [id number] Author: LENNIE PALACIOS RN Service: ? Author [...] after Benadryl given. 1345 Patient discharged to tractor driver teamster in wheelchair , patient sleepy but verbalizing and ambulating wheelchair used as a precaution Patient able to walk to wheelchair without difficulty.[facility]11-15-2024 History of Present illness Narrative* Lennie [...] after Benadryl given. 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 documented in this encounterPremier [facility]10-15-2024 History of Present illness Narrative* Ольга Shabazz APRN.LAUNCH OPERATOR - 12/05/2023 7:00 AM EDT Images from the original note were not included. Headache Center - Follow up Virtual Visit Last OV: 08/23/23 Sona Barth APRN Accompanied by: Self This visit was conducted as a virtual visit, with patient's permission, via ZOOM. It required patient-provider interaction for the medical decision making as documented below. Patient stated name and Patient location [place], [place] I have communicated my name and active licensure. The patient's identity and physical location wereverified at the time of this visit. Either the patient or their legal personal financial representative has been informed of the risks [...] (ZOMIG) 5 mg nasal spray Use 1 [place]in[place] in the nose as needed at onset [...] these with the patient: yes Ольга Shabazz APRN.LAUNCH OPERATOR Studies to Review: No New Health [...] XL, Qudexy) Anti-Depressant and Antipsychotic Amitriptyline (Elavil) [place] (Eskalith, Lithobid) Nortriptyline (Pamelor, Aventyl) Blood Pressure [...] which included preparing to see the patient, [id number] patient care, completing clinical documentation, and counseling and educating the patient/family/caregiver. Ольга Shabazz APRN.LAUNCH OPERATOR documented in this encounterPremier Health [facility]09-25-2024 History of Present illness Narrative* Lamont Blair [...] 800-160 MG per tablet documented in this encounterSouthPointe HospitalFnbkatkhfe10-28-8355 Telephone encounter Note* Telephone Encounter - Sagar Barth APRN.CNP - 11/10/2023 2:12 PM EDT The following approved medication requests have been transmitted electronically. Requested Prescriptions Signed Prescriptions Disp Refills ZOLMitriptan (ZOMIG) 5 mg nasal spray 10 Each 5 Sig: Use 1 [place]in[place] in the nose as needed at onset [...] spasm (migraine). Authorizing Provider: SAGAR BARTH APRN.CNP [facility]09-20-2024 Miscellaneous Notes* Telephone Encounter - Sagar Barth APRN.CNP - 11/10/2023 2:12 PM EDT The following approved medication requests have been transmitted electronically. Requested Prescriptions Signed Prescriptions Disp Refills ZOLMitriptan (ZOMIG) 5 mg nasal spray 10 Each 5 Sig: Use 1 [place]in[place] in the nose as needed at onset [...] spray 10 Each 5 Sig: Use 1 [place]in[place] in the nose as needed at onset [...] for muscle spasm (migraine). documented in this encounterPremier Health [facility]09-20-2024 Telephone encounter Note * Telephone Encounter - Sagar Barth APRN.CNP - 11/10/2023 2:11 PM EDT The following approved medication requests have been transmitted electronically. Requested Prescriptions Signed Prescriptions Disp Refills promethazine (PHENERGAN) 25 mg tablet 90 tablet 5 Sig: Take 1 tablet by mouth every 4 hours as needed. FOR NAUSEA Authorizing Provider: SAGAR BARTH APRN.CNP [facility]09-20-2024 Miscellaneous Notes* Telephone Encounter - Sagar Barth [...] [facility] documented in this encounterPremier Health [facility]09-20-2024 Telephone encounter Note * Telephone Encounter - [...] NAUSEA Pharmacy Name: [facility]09-20-2024 Telephone encounter Note* Telephone Encounter - Michelle Givens RN - 11/10/2023 1:26 PM EDT patient requesting refill via Appside[employer]. Last OV: 09/19/2023 Future OV: None scheduled Last prescribed: 4 months ago (07/10/2023) by Sagar Barth APRN.LAUNCH OPERATOR Requested Prescriptions Pending Prescriptions Disp Refills ZOLMitriptan (ZOMIG) 5 mg nasal spray 10 Each 5 Sig: Use 1 [place]inole in the nose as needed at onset [...] day as needed for muscle spasm (migraine). [facility]08-23-2024 History of Present illness Narrative* Getachew Domingo RN - 10/13/2023 12:44 PM EDT Pt in for Vyepti infusion. Pt rated headache 8 /10. Pt has severe nausea and mild dizziness. Educated pt on medications to be administered. Pt agreed to proceed as ordered. Director Learning And Development: yes Zofran 8 mg IVP given for [...] Patient d/c via wheelchair.. documented in this encounterPremier Health [facility]08-20-2024 History of Present illness Narrative* Lamont Blair MD - 10/10/2023 10:04 AM EDTAssociated Problem(s): Mild persistent asthma with (acute) exacerbation ([facility]) Continued symptoms and [...] Visit Mild persistent asthma with (acute) exacerbation ([facility]) Continued symptoms and [...] 800-160 MG per tablet documented in this encounterSouthPointe [id number] History of Present illness Narrative* Sagar Barth APRN.LAUNCH OPERATOR - 09/19/2023 2:30 PM EDT Images from [...] XL, Qudexy) Anti-Depressant and Antipsychotic Amitriptyline (Elavil) [place] (Eskalith, Lithobid) Nortriptyline (Pamelor, Aventyl) Anti-Migraine Dihydroergotamine [...] ZOLMitriptan (ZOMIG) 5 mg nasal spray^Use 1 [place] in the nose as needed at onset [...] these with the patient: yes Sagar Barth APRN.LAUNCH OPERATOR HEADACHE SCORES: 03/22/2023 07/10/2023 09/19/2023 Headache [...] spontaneous and fluent without dysarthria. 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 Sagar Barth APRN.[facility] Headache Section [facility] September 19, 2023 documented in this encounterPremier Health [facility]06-28-2024 Instructions* Patient Instructions* Curtis Lepe PA-C - 08/18/2023 2:39 PM EDT You received a greater occipital nerve block (GONB) today You may feel sore tomorrow at the site of the injection. You may use heat or ice for discomfort andgentle stretching. This should resolve in 24-36 hours. Greater Occipital Nerve Block (GONB) Article in [place] [employer] Journal By: Molina Barraza MD Many patients with chronic headache report that their pain typically arises from the neck or, more specifically, the base of the skull. Often that pain arises on one side or the other and extends forward to involve the top of the head, the quaker, the forehead, the eye or some combination [...] give it at least one more try. https://americanheadachesociety.org/wp-content/uploads//Orjvsgarv-Fvmfa-V locks_Jun-2009.pdf documented in this encounterPremier Health [facility]06-28-2024 History of Present illness Narrative* Curtis Lepe [...] 1 month Curtis Lepe PA-C Headache Section [facility] August 18, 2023 documented in this encounterPremier Health [facility]06-26-2024 Telephone encounter Note * Telephone Encounter - Michelle Givens RN - 08/16/2023 9:18 AM EDT Forwarded to provider for review. PAPO: 07/10/2023 Future OV: 09/19/2023 Encounter from [facility] today 08/16/2023 [facility]06-26-2024 Miscellaneous Notes* Telephone Encounter - Michelle Givens RN - 08/16/2023 9:18 AM EDT Forwarded to provider for review. PAPO: 07/10/2023 Future OV: 09/19/2023 Encounter from [facility] today 08/16/2023 documented in this encounterPremier Health [facility]05-20-2024 History of Present illness Narrative* Sagar Barth APRN.LAUNCH OPERATOR - 07/10/2023 11:30 AM EDT Images from [...] visit. Either the patient or their legal personal financial representative has been informed of the risks [...] XL, Qudexy) Anti-Depressant and Antipsychotic Amitriptyline (Elavil) [place] (Eskalith, Lithobid) Nortriptyline (Pamelor, Aventyl) Anti-Migraine Dihydroergotamine [...] ZOLMitriptan (ZOMIG) 5 mg nasal spray^Use 1 [place] in the nose as needed at onset [...] these with the patient: yes Sagar Barth APRN.LAUNCH OPERATOR HEADACHE SCORES: 12/12/2022 03/22/2023 07/10/2023 Headache [...] Lymph 1.00 - 4.00 k/uL 0.84 Abs Mckean <0.87 k/uL 0.06 Abs Eosin <0.46 k/uL [...] spontaneous and fluent without dysarthria. 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, cognition and general [...] XL, Qudexy) Anti-Depressant and Antipsychotic Amitriptyline (Elavil) [place] (Eskalith, Lithobid) Nortriptyline (Pamelor, Aventyl) Blood Pressure [...] (ZOMIG) 5 mg nasal spray Use 1 [place] in the nose as needed at onset [...] Service: Virtual Visit 40 minutes Sagar Barth APRN.LAUNCH OPERATOR Headache Section [facility] July 10, 2023 documented in this encounterPremier Health [facility]05-06-2024 Telephone encounter Note * Telephone Encounter - Kings Saez RN - 06/26/2023 3:00 PM EDT Called Pt to clarify ER visit. States she was seen this morning at [facility] and given a Compazine and steroid shot States she cannot remember the name of steroid that was given. Informationpassed on to care team. Marc TOMAS RN Clinical Decorator Consultant [facility]05-06-2024 Miscellaneous Notes* Telephone Encounter - Kings Saez RN - 06/26/2023 3:00 PM EDT Called Pt to clarify ER visit. States she was seen this morning at [facility] and given a Compazine and steroid shot States she cannot remember the name of steroid that was given. Informationpassed on to care team. Marc TOMAS RN Clinical Decorator Consultant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 Please route this encounter to the EMU Scheduling Pool ( P EMU ) or PMU Scheduling Pool ( P PMU ) through LOS & Follow up PHASE 1.0 AND 1.5 ORDER SYNOPSIS Patient: Margaret Nicholson ([id number]) Best contact number: [phone] Insurance: No coverage found. Scheduling Team: Please call for adult patients: Mendoza Torres ([phone]) Chucky Cantor ([phone]) Fabiola Sharpe([phone]) Nikkie Mahajan([phone]) Please call for pediatric patients: Chucky Cantor ([phone]) Fabiola Sharpe ([phone]) Mendoza Torres ([phone]) Nikkie Mahajan([phone]) Appointments and Tests PRE-PROCEDURE & PRE-OPERATIVE COVID [...] VNS off/on office visits. documented in this encounterPremier Health [facility]08-31-2022 Hospital Discharge instructions* Discharge Instructions* UMANG Garcia [...] Care Everywhere. * Non-Epileptic Seizure: General Info (Mosotho) documented in this encounterBON Afterschool.me Work Phone: 1(903) 175-476808-31-2022 History of Present illness Narrative* UMANG Garcia [...] who presented as a transfer from [facility] for seizure like episodes. Per records, [...] en route to outlying ED. On arrival [facility] ED, GCS 12. Per documentation, patient had at least 13 seizure like episodes, lasting 10-60 seconds, described as grand mal. She was given 10mg Valium IV, 1g Keppra IV, 720mg Phenobarbital IV. CT Head without contrast unremarkable. Labs unremarkable including normal TSH, lactic, negative UA. Transferred to [facility] Neuro ICU for further management. [...] brain mass recently (last 6 months) at [facility] andis supposed to have a brain biopsy in November 2021. Patient recently saw Dr. Vicky De Dios ([facility]) on 08/06/21 for migraines and [...] On arrival to the Neuro ICU, Adrienne (COLLECTION SUPERVISOR) witnessed two brief (~10 seconds) episodes [...] with patient and mom. Records requested from [facility] where patient states she was seen and [...] hysterectomy who presented as a transfer from [place] ED for seizure like episodes. NEUROLOGIC: - [...] UMANG Garcia CNP Neuro Critical Care Pager [phone] 10/20/2021 6:49 AM * Juan Francisco Peterson [...] saturating at 100%. documented in this encounterBON CAMARILLO STATE MENTAL HOSPITALSanako Work Phone: 1(630) 334-635008-12-2022 NoteDISCHARGE SUMMARY DISCHARGE DATE: 10/02/2021 PRIMARY DIAGNOSES: [...] when pain free and no longer on narcotics.[facility]08-12-2022 NoteOPERATIVE NOTE OPERATION DATE: 10/01/2021 PROCEDURE: Total abdominal hysterectomy with partial bilateral salpingectomy with cystoscopy. PREOPERATIVE DIAGNOSIS: Menorrhagia, dysmenorrhea, dyspareunia, pelvic pain. POSTOPERATIVE DIAGNOSIS: Menorrhagia, dysmenorrhea, dyspareunia, pelvic pain. ANESTHESIA: General. SURGEON: Zay Blas D.O. BILLING ASSOCIATE: VERNA Yap URINE OUTPUT: Yellow and clear. [...] the Recovery Room in stable condition. ??[facility] [id number] NotePROCEDURE: US PELVIS TRANSVAG, 08/14/2021 9:01 AM [...] Electronically authenticated by: NICOLE MEDELLIN Date: 2021-08-14 10:19[facility]11-04-2021 Hospital Discharge instructions* Instructions* Keven Ching DO - 12/24/2020 Continue all home medications as prescribed. Follow up with your family doctor and neurologist. Return to the emergency department for new, worsening or worrisome symptoms. documented in this encounter[employer] [employer] Phone: evaluation note* Diagnosis Migraine without status migrainosus, not intractable, unspecified migraine type- Primary documented in this encounter [employer] Phone: evaluation note* Diagnosis Seizure-like activity (HCC)- Primary Other convulsions Seizure disorder (HCC) Unspecified epilepsy without mention of intractable epilepsy Psychogenic nonepileptic seizure [facility] [employer] Phone: evaluation note* Diagnosis Seizure-like activity (HCC)- Primary Other convulsions [facility] Diagnosis Psychogenic nonepileptic seizure- Primary Spells of trembling Abnormal involuntary movements Chronic intractable headache, unspecified headache type [facility] [place] [facility]* Diagnosis Seizure-like activity (HCC)- Primary Other convulsions Psychogenic nonepileptic seizure [facility]* Diagnosis Seizure-like activity (HCC)- Primary Other convulsions [facility]* Diagnosis Chronic migraine w/o aura, not intractable, w/o stat migr- Primary [facility] [place] [facility]* Diagnosis Intractable chronic migraine without aura and with status migrainosus- Primary Chronic migraine without aura, with intractable migraine, so stated, with status migrainosus [facility] Diagnosis Intractable chronic migraine without aura and with status migrainosus- Primary Chronic migraine without aura, with intractable migraine, so stated, with status migrainosus [facility] [place] [facility]* Diagnosis Chronic migraine w/o aura, not [...] with status migrainosus [facility] Diagnosis Chronic migraine w/o aura, not intractable, w/o stat migr Cervicalgia Migraine without aura and without status migrainosus, not intractable Migraine without aura, without mention of intractable migraine without mention of status migrainosus [facility] [place] [facility]* Diagnosis Intractable chronic migraine without aura [...] of status migrainosus [facility] [place] [facility] Diagnosis Intractable chronic migraine without aura and without status migrainosus- Primary Chronic migraine without aura, with intractable migraine, so stated, without mention of status migrainosus [facility] [place] [facility]* Diagnosis Intractable chronic migraine without aura and without status migrainosus- Primary Chronic migraine without aura, with intractable migraine, so stated, without mention of status migrainosus [facility] [place] [facility]* Diagnosis Acute right flank pain- Primary [...] (CMS/HCC) Pain, dental [facility] [place] [facility] Diagnosis Chronic migraine without aura, with intractable migraine, so stated, with status migrainosus- Primary Intractable chronic migraine without aura and with status migrainosus Chronic migraine without aura, with intractable migraine, so stated, with status migrainosus [facility] [place] [facility] Diagnosis Chronic migraine without aura, with intractable migraine, so stated, with status migrainosus- Primary Intractable chronic migraine without aura and with status migrainosus Chronic migraine without aura, with intractable migraine, so stated, with status migrainosus documented [facility] this [facility] [place] [facility]* Diagnosis Acute right flank pain- Primary Mild persistent asthma without complication (CMS/HCC) Morbid obesity (CMS/HCC) Morbid obesity Body mass index [BMI] 45.0-49.9, adult (Z68.42) Acute bronchitis due to other specified organisms- Primary Mild persistent asthma with (acute) exacerbation ([facility]) Acute bronchitis due to other specified organisms- Primary Mixed bipolar I disorder ([facility]) Bipolar I disorder, most recent episode (or current) mixed, unspecified Mild persistent asthma without complication ([facility])- Primary Class 3 severe obesity due to excess calories without serious comorbidity with body mass index (BMI) of 50.0 to 59.9 in adult ([facility]) Fatigue, unspecified type Mixed bipolar I disorder ([facility]) Bipolar I disorder, most recent episode (or current) mixed, unspecified Chronic migraine without aura without status migrainosus, not intractable ([facility]) Pain, dental Pain, dental [facility] Diagnosis Chronic migraine without aura, with intractable migraine, so stated, with status migrainosus- Primary [facility] this [facility] [place] [facility]* Diagnosis Chronic migraine without aura, with intractable migraine, so stated, with status migrainosus- Primary Intractable chronic migraine without aura and with status migrainosus Chronic migraine without aura, with intractable migraine, so stated, with status migrainosus documented in this [facility] [place] [facility]* Diagnosis Acute right flank pain- Primary Mild persistent asthma without complication ([facility]) Morbid obesity ([facility]) Morbid obesity Body mass index [BMI] 45.0-49.9, adult (Z68.42) Acute bronchitis due to other specified organisms- Primary Mild persistent asthma with (acute) exacerbation ([facility]) Acute bronchitis due to other specified organisms- Primary Mixed bipolar I disorder ([facility]) Bipolar I disorder, most recent episode (or current) mixed, unspecified Mild persistent asthma without complication ([facility])- Primary Class 3 severe obesity due to excess calories without serious comorbidity with body mass index (BMI) of 50.0 to 59.9 in adult ([facility]) Fatigue, unspecified type Mixed bipolar I disorder ([facility]) Bipolar I disorder, most recent episode (or current) mixed, unspecified Chronic migraine without aura without status migrainosus, not intractable ([facility]) Pain, dental Mild persistent asthma with (acute) exacerbation ([facility])- Primary Generalized edema Edema SOB (shortness of breath) on exertion Shortness of breath [facility] Diagnosis Acute right flank pain- Primary Mild persistent asthma without complication ([facility]) Morbid obesity ([facility]) Morbid obesity Body mass index [BMI] 45.0-49.9, adult (Z68.42) Acute bronchitis due to other specified organisms- Primary Mild persistent asthma with (acute) exacerbation ([facility]) Acute bronchitis due to other specified organisms- Primary Mixed bipolar I disorder ([facility]) Bipolar I disorder, most recent episode (or current) mixed, unspecified Mild persistent asthma without complication ([facility])- Primary Class 3 severe obesity due to excess calories without serious comorbidity with body mass index (BMI) of 50.0 to 59.9 in adult ([facility]) Fatigue, unspecified type Mixed bipolar I disorder ([facility]) Bipolar I disorder, most recent episode (or current) mixed, unspecified Chronic migraine without aura without status migrainosus, not intractable ([facility]) Pain, dental Mild persistent asthma with (acute) exacerbation ([facility])- Primary Generalized edema Edema SOB (shortness of breath) on exertion Shortness of breath COVID-19 [facility]* Diagnosis Severe persistent asthma without complication ([facility]) [facility]* Diagnosis Acute bronchitis due to other specified organisms- Primary Mild persistent asthma with (acute) exacerbation ([facility]) [facility]* Diagnosis Acute bronchitis due to other specified organisms- Primary Mixed bipolar I disorder ([facility]) Bipolar I disorder, most recent episode (or current) mixed, unspecified [facility]* Diagnosis Acute right flank pain- Primary Mild persistent asthma without complication ([facility]) Morbid obesity ([facility]) Morbid obesity Body mass index [BMI] 45.0-49.9, adult (Z68.42) Acute bronchitis due to other specified organisms- Primary Mild persistent asthma with (acute) exacerbation ([facility]) Acute bronchitis due to other specified organisms- Primary Mixed bipolar I disorder ([facility]) Bipolar I disorder, most recent episode (or current) mixed, unspecified Mild persistent asthma without complication ([facility])- Primary Class 3 severe obesity due to excess calories without serious comorbidity with body mass index (BMI) of 50.0 to 59.9 in adult ([facility]) Fatigue, unspecified type Mixed bipolar I disorder ([facility]) Bipolar I disorder, most recent episode (or current) mixed, unspecified Chronic migraine without aura without status migrainosus, not intractable ([facility]) Pain, dental Mild persistent asthma with (acute) exacerbation ([facility])- Primary Generalized edema Edema SOB (shortness of breath) on exertion Shortness of breath Generalized abdominal pain- Primary Abdominal pain, generalized Intractable nausea and vomiting Mild persistent asthma with (acute) exacerbation ([facility]) [facility]* Diagnosis Acute right flank pain- Primary Mild persistent asthma without complication ([facility]) Morbid obesity ([facility]) Morbid obesity Body mass index [BMI] 45.0-49.9, adult (Z68.42) Acute bronchitis due to other specified organisms- Primary Mild persistent asthma with (acute) exacerbation ([facility]) Acute bronchitis due to other specified organisms- Primary Mixed bipolar I disorder ([facility]) Bipolar I disorder, most recent episode (or current) mixed, unspecified Mild persistent asthma without complication ([facility])- Primary Class 3 severe obesity due to excess calories without serious comorbidity with body mass index (BMI) of 50.0 to 59.9 in adult ([facility]) Fatigue, unspecified type Mixed bipolar I disorder ([facility]) Bipolar I disorder, most recent episode (or current) mixed, unspecified Chronic migraine without aura without status migrainosus, not intractable ([facility]) Pain, dental Mild persistent asthma with (acute) exacerbation ([facility])- Primary Generalized edema Edema SOB (shortness of breath) on exertion Shortness of breath Generalized abdominal pain- Primary Abdominal pain, generalized Intractable nausea and vomiting Mild persistent asthma with (acute) exacerbation ([facility]) Pelvic pain in female Unspecified symptom associated with female genital organs Complex ovarian cyst [facility]* Diagnosis Acute right flank pain- Primary Mild persistent asthma without complication ([facility]/HCC) Morbid obesity ([facility]) Morbid obesity Body mass index [BMI] 45.0-49.9, adult (Z68.42) Acute bronchitis due to other specified organisms- Primary Mild persistent asthma with (acute) exacerbation ([facility]) Acute bronchitis due to other specified organisms- Primary Mixed bipolar I disorder ([facility]) Bipolar I disorder, most recent episode (or current) mixed, unspecified Mild persistent asthma without complication ([facility])- Primary Class 3 severe obesity due to excess calories without serious comorbidity with body mass index (BMI) of 50.0 to 59.9 in adult ([facility]) Fatigue, unspecified type Mixed bipolar I disorder ([facility]) Bipolar I disorder, most recent episode (or current) mixed, unspecified Chronic migraine without aura without status migrainosus, not intractable ([facility]) Pain, dental Mild persistent asthma with (acute) exacerbation ([facility])- Primary Generalized edema Edema SOB (shortness of breath) on exertion Shortness of breath Generalized abdominal pain- Primary Abdominal pain, generalized Intractable nausea and vomiting Mild persistent asthma with (acute) exacerbation ([facility]) Cyst of right ovary Other and unspecified ovarian cyst Pelvic pain in female Unspecified symptom associated with female genital organs Pelvic peritoneal adhesions, female Pelvic peritoneal adhesions, female (postoperative) (postinfection) [facility] Bilateral ovarian cysts- Primary Other and unspecified ovarian cyst Preop testing Unspecified pre-operative examination documented in this encounter [facility]* Diagnosis Bilateral ovarian cysts- Primary Other and unspecified ovarian cyst Moderate asthma with acute exacerbation, unspecified whether persistent Encounter for preoperative pulmonary examination [facility] Acute cough [R05.1]- Primary documented in this encounter [facility]* Diagnosis Intractable chronic migraine without aura and without status migrainosus- Primary Chronic migraine without aura, with intractable migraine, so stated, without mention of status migrainosus [facility] Diagnosis Asthma, unspecified asthma severity, unspecified whether complicated, unspecified whether persistent- Primary Bilateral ovarian cysts Other and unspecified ovarian cyst Moderate asthma with acute exacerbation, unspecified whether persistent Encounter for preoperative pulmonary examination Pulmonary nodule Other diseases of lung, not elsewhere classified Gastroesophageal reflux disease, unspecified whether esophagitis present documented in this encounter [facility]* Diagnosis Cyst of right ovary- Primary Other and unspecified ovarian cyst documented in this encounter [facility]* Diagnosis Preop testing- Primary Unspecified pre-operative examination Bilateral ovarian cysts Other and unspecified ovarian cyst documented in this encounter [facility]* Diagnosis S/P bilateral salpingo-oophorectomy Acquired absence of organ, genital organs documented in this encounter [facility]* Diagnosis Post-op pain- Primary Other acute postoperative pain documented in this encounter [facility]* Diagnosis Acute right flank pain- Primary Mild persistent asthma without complication (CMS/HCC) Morbid obesity ([facility]/HCC) Morbid obesity Body mass index [BMI] 45.0-49.9, [...] (BMI) of 50.0 to 59.9 in adult ([facility]) Fatigue, unspecified type Mixed bipolar I disorder (CMS/[facility]) Bipolar I disorder, most recent episode (or current) mixed, unspecified Chronic migraine without aura without status migrainosus, not intractable (CMS/[facility]) Pain, dental Mild persistent asthma with (acute) exacerbation ([facility]/HCC)- Primary Generalized edema Edema SOB (shortness of breath) on exertion Shortness of breath Generalized abdominal pain- Primary Abdominal pain, generalized Intractable nausea and vomiting Mild persistent asthma with (acute) exacerbation ([facility]/HCC) Visit for wound check Yeast infection [facility] Diagnosis Abdominal wall cellulitis- Primary Postoperative surgical complication involving genitourinary system associated with genitourinary procedure, unspecified complication Postoperative surgical complication involving genitourinary system associated with genitourinary procedure documented in this encounter [facility]* Diagnosis Acute right flank pain- Primary Mild persistent asthma without complication (CMS/HCC) Morbid obesity ([facility]) Morbid obesity Body mass index [BMI] 45.0-49.9, adult (Z68.42) Acute bronchitis due to other specified organisms- Primary Mild persistent asthma with (acute) exacerbation (CMS/HCC) Acute bronchitis due to other specified organisms- Primary Mixed bipolar I disorder (CMS/HCC) Bipolar I disorder, most recent episode (or current) mixed, unspecified Mild persistent asthma without complication ([facility])- Primary Class 3 severe obesity due to excess calories without serious comorbidity with body mass index (BMI) of 50.0 to 59.9 in adult ([facility]) Fatigue, unspecified type Mixed bipolar I disorder ([facility]) Bipolar I disorder, most recent episode (or current) mixed, unspecified Chronic migraine without aura without status migrainosus, not intractable ([facility]) Pain, dental Mild persistent asthma with (acute) exacerbation ([facility])- Primary Generalized edema Edema SOB (shortness of breath) on exertion Shortness of breath Generalized abdominal pain- Primary Abdominal pain, generalized Intractable nausea and vomiting Mild persistent asthma with (acute) exacerbation ([facility]) Well woman exam with routine gynecological exam Routine gynecological examination [facility] Diagnosis Postoperative surgical complication involving genitourinary system associated with genitourinary procedure, unspecified complication- Primary Post-op pain Other acute postoperative pain Sweating profusely Generalized hyperhidrosis Menopausal symptoms Symptomatic menopausal or female climacteric states Nausea and vomiting, unspecified vomiting type [facility] Diagnosis Post-operative pain- Primary Other acute postoperative pain documented in this encounter [facility]* Diagnosis Muscle spasm- Primary Spasm of muscle Fatigue due to depression Nausea and vomiting, unspecified vomiting type Mild persistent asthma without status asthmaticus without complication Psychogenic nonepileptic seizure [facility]* Diagnosis Postoperative surgical complication involving genitourinary system associated with genitourinary procedure, unspecified complication documented in this encounter [facility]* Diagnosis Postoperative surgical complication involving genitourinary system associated with genitourinary procedure, unspecified complication documented in this encounter [facility]* Diagnosis Moderate persistent asthma, unspecified whether complicated [facility]* Diagnosis Postoperative infection, unspecified type, subsequent encounter- Primary [facility]* Diagnosis Chronic migraine without [...] of status migrainosus [facility] [place] [facility]* Diagnosis Intractable chronic migraine without aura and with status migrainosus- Primary Chronic migraine without aura, with intractable migraine, so stated, with status migrainosus Nausea Nausea alone Generalized anxiety disorder documented in this encounter [facility] note* Diagnosis S/P bilateral salpingo-oophorectomy- Primary Acquired absence of organ, genital organs Menopausal symptoms Symptomatic menopausal or female climacteric states documented in this encounter [facility]* Diagnosis Moderate persistent asthma with acute exacerbation- Primary Acute pansinusitis, recurrence not specified Antibiotic-induced yeast infection documented in this encounter [facility]* Diagnosis Moderate persistent asthma, unspecified whether complicated documented in this encounter [facility]* Diagnosis Intractable chronic migraine without aura and without status migrainosus Chronic migraine without aura, with intractable migraine, so stated, without mention of status migrainosus documented [facility] [place] [facility] Diagnosis Weight loss- Primary Loss of weight Moderate persistent asthma with acute exacerbation Seasonal allergic rhinitis, unspecified trigger documented in this encounter [facility]* Diagnosis Seasonal allergic rhinitis, unspecified trigger documented in this encounter [facility]* Diagnosis Family history of genetic disorder- Primary Family history of other condition documented in this encounter [facility] [place] [facility]* Diagnosis Acute right flank pain- Primary [...] Dyspareunia in female [facility] [place] [facility] Diagnosis Status migrainosus- Primary Variants of [...] this encounter [facility] [place] [facility]* Diagnosis Eye infection, bilateral- Primary Ingrown nail of great toe documented in this encounter [facility]* Diagnosis Intractable chronic migraine without aura and without status migrainosus- Primary Chronic migraine without aura, with intractable migraine, so stated, without mention of status migrainosus documented [facility]* Diagnosis Chronic migraine without aura, with intractable migraine, so stated, with status migrainosus- Primary Intractable chronic migraine without aura and with status migrainosus Chronic migraine without aura, with intractable migraine, so stated, with status migrainosus documented in this encounter [facility] [place] [facility]* Diagnosis Intractable chronic migraine without aura and with status migrainosus- Primary Chronic migraine without aura, with intractable migraine, so stated, with status migrainosus Status migrainosus Variants of migraine, not elsewhere classified, without mention of intractable migraine without mention of status migrainosus documented in this encounter [facility] [place] [facility]* Diagnosis Family history of genetic disorder- Primary Family history of other condition documented in this encounter [facility] [place] [facility] [place] [facility]* Diagnosis Allergic reaction, sequela- Primary documented in this encounter [facility]* Diagnosis Intractable chronic migraine without aura and without status migrainosus- Primary Chronic migraine without aura, with intractable migraine, so stated, without mention of status migrainosus documented [facility]* Diagnosis Acute right flank pain- Primary Mild persistent asthma without complication (HCC) Morbid obesity ([facility]) Morbid obesity Body mass index [BMI] 45.0-49.9, [...] (BMI) of 50.0 to 59.9 in adult ([facility]) Fatigue, unspecified type [...] persistent asthma with (acute) exacerbation ([facility]) Hot flashes due to surgical menopause [facility] Diagnosis Moderate persistent asthma, unspecified whether complicated [facility]* Diagnosis Muscle spasm Spasm of muscle [facility]* Diagnosis Left otitis media, unspecified otitis media type- Primary Mild asthma with exacerbation, unspecified whether persistent [facility]* Diagnosis Moderate asthma with acute exacerbation, unspecified whether persistent [facility]* Diagnosis JUAN DAVID (obstructive sleep apnea)- Primary Obstructive sleep apnea (adult) (pediatric) documented [facility]* Diagnosis Moderate persistent asthma without complication- Primary Gastroesophageal reflux disease without esophagitis Esophageal reflux Environmental allergies Other allergy, other than to medicinal agents [facility]* Diagnosis Moderate persistent asthma [...] sent through Care Everywhere. * Ingrown toenail ([place]) documented in [facility] encounter[facility] SystemInstructionsNot on file documented in this encounterProMedica Health SystemInstructionsNot on file documented in this encounterProMedica Health SystemInstructionsNot on file documented in this encounterProMedica Health SystemInstructions* Attachments The following attachments cannot be sent through Care Everywhere. * Olopatadine (Ophthalmic) ([place]) documented in this encounterProMedica Health SystemReason for referral (narrative)* Outpatient Procedure (Routine) - Pending ReviewSpecialtyDiagnoses / ProceduresReferred By ContactReferred To ContactNEUROLOGICAL INSTITUTE Diagnoses Seizure-like activity (HCC) Procedures EPIL EEG LEAD PLACEMENT EEG EXTENDED MONITORING 61-119 MINUTES ELECTROENCEPHALOGRAM REC COMA/SLEEP ONLY Geri Madera APRN.LAUNCH OPERATOR [address] [place] [address] [place] [address] Referral IDStatusMarlisoutheast miss[facility] centerStjasper DateExpiration DateVisits RequestedVisits [id number] Review Auto-Generated Referral / [facility] for referral (narrative)* Outpatient Procedure (Routine) - Pending ReviewSpecialtyDiagnoses / ProceduresReferred By ContactReferred To [facility] Diagnoses Psychogenic nonepileptic seizure Spells of trembling Procedures EPIL AMBULATORY EEG EEG COMPLETE STD PHYS/QHP&GT;84 HR W/O Tyrone Diaz MD, PhD [id number] [place] [address] Referral IDStatusReasonStart DateExpiration DateVisits RequestedVisits [id number] Review Auto-Generated Referral * Outpatient Procedure (Routine) - Pending ReviewSpecialtyDiagnoses / Procedures Referred By ContactReferred To [facility] Diagnoses Psychogenic nonepileptic seizure Spells of trembling Procedures EPIL AMBULATORY EEG EEG COMPLETE STD PHYS/QHP&GT;84 HR W/O Tyrone Diaz MD, PhD [id number] [place] [address] Referral IDStatusReasonStart DateExpiration DateVisits RequestedVisits [id number] Review Auto-Generated Referral / * Consult, Test, Treat (Routine) - AuthorizedSpecialtyDiagnoses / Procedures Referred By ContactReferred To Contact Diagnoses Chronic intractable headache, unspecified headache type Procedures CONSULT TO HEADACHE CLINIC OFFICE/OUTPATIENT NEW HIGH MDM 60-74 MINUTES Tyrone Dolan MD, PhD [address] [place] [address] Referral IDStatusReasonStart DateExpiration DateVisits RequestedVisits [id number] PCP Requested Referral / [facility] for referral (narrative)* Outpatient Procedure (Routine) - Pending ReviewSpecialtyDiagnoses / ProceduresReferred By ContactReferred [facility] Diagnoses Seizure-like activity (HCC) Procedures EPIL EEG ROUTINE ELECTROENCEPHALOGRAM REC COMA/SLEEP ONLY Nelly Saldaña PA-C [address] [place] [address] Neurological [facility] [place] [address] Referral IDStatusReasonStjasper DateExpiration DateVisits RequestedVisits [id number] Review Auto-Generated Referral [facility] for referral (narrative)* Misc (Routine) - Pending Review SpecialtyDiagnoses / ProceduresReferred By ContactReferred To Contact Procedures Discharge Follow-Up George Mihcelle MD [address] [facility], [address] [place] [address] Phone: tel: fax: Referral IDStatusReasonStart DateExpiration DateVisits RequestedVisits [id number] Review * Misc (Routine) - Pending ReviewSpecialtyDiagnoses / ProceduresReferred By ContactReferred To Contact Procedures Hygiene George Michelle MD [address] [address] Phone: tel: fax: Referral IDStatusMarliasonStart DateExpiration DateVisits RequestedVisits [id number] Review [facility] Advance Directives TypeDate RecordedPatient RepresentativeExplanationACP-Advance DirectiveACP-Power of [...] push over 2-5 minutes. Given07/28/2022 8:23 AM [id number] mg magnesium sulfate 1 g in D5W [...] and Hematology/Oncology 4) Eclampsia or Preeclampsia New Bag/Syringe/Wdukcm4707/28/2022 9:08 AM EDT1 g100 mL/hr methocarbamol iv infusion 1,000 mg in NaCl 0.9% 100 mL (ROBAXIN) 1,000 mg, INTRAVENOUS, Administer over 30 Minutes, ONCE, 1 dose, On Emg 07/28/22 at 0800, Administer IV while in recumbent position. Maintain position for at least 10-15 minutes following infusion. New Bag/Syringe/Llvmwt2707/28/2022 8:32 AM EDT1,000 mg promethazine 25 mg [...] push over 2-5 minutes. Given11/11/2022 8:45 AM VZQ379 mg magnesium sulfate 1 g in D5W [...] and Hematology/Oncology 4) Eclampsia or Preeclampsia New Bag/Syringe/Fgxhiw9911/11/2022 9:21 AM EDT1 g100 mL/hr methocarbamol iv infusion 1,000 mg in NaCl 0.9% 100 mL (ROBAXIN) 1,000 mg, INTRAVENOUS, Administer over 30 Minutes, ONCE, 1 dose, On Mon11/11/22 at 0830, AdministerIV while in recumbent position. Maintain position for at least 10-15 minutes following infusion. New Bag/Syringe/Twuvuq8611/11/2022 8:50 AM EDT1,000 mg NaCl 0.9% 500 mL iv bolus 500 mL, INTRAVENOUS, at 999 mL/hr, Administer over 0.5 Hours, ONCE, 1 dose, On Mon11/11/22 at 0830 New Bag/Syringe/Bzlfcg2511/11/2022 8:40 AM WUY310 mL999 mL/hr ondansetron (PF) 8 mg injection [...] By ContactReferred To Contact Jesse Borrego MD [address] [place] [address] Referral IDStatusReasonStart DateExpiration DateVisits RequestedVisits [id number] / ProceduresReferred By Contact Referred To Contact Diagnoses Intractable chronic migraine without aura and with status migrainosus Intractable chronic migraine without aura and without status migrainosus Procedures PROVIDER ORDERED FOLLOW UP OFFICE/OUTPATIENT NEW [facility] 60 MINUTES Suzan Ivey APRN.LAUNCH OPERATOR [id number] Referral IDStatusReasonStart DateExpiration DateVisits RequestedVisits [id number] PCP Requested Referral /[id number] / ProceduresReferred By ContactReferred To Contact Diagnoses Intractable chronic migraine without aura and without status migrainosus Procedures PROVIDER ORDERED FOLLOW UP OFFICE/OUTPATIENT [facility] 60 MINUTES Sagar Barth APRN.LAUNCH OPERATOR [address] [place] [address] Referral IDStatusReasonStart DateExpiration DateVisits RequestedVisits [id number] PCP Requested Referral /[id number] / ProceduresReferred By ContactReferred To Contact Sagar Barth APRN.LAUNCH OPERATOR [address] [phone] Referral IDStatusReasonStart DateExpiration DateVisits RequestedVisits [id number] / Procedures Referred By ContactReferred To ContactPsychology Diagnoses Psychogenic nonepileptic seizure Procedures CONSULT TO PSYCHOLOGY OFFICE/OUTPATIENT [facility] 60 MINUTES Curtis Lepe PA-C [address] [place] [address] Referral IDStatusReasonStart DateExpiration DateVisits RequestedVisits [id number] Review PCP Requested Referral / Additional Source Comments Source Comments (unrecognize d section and content) In the event this informatio n is protected by the Federal Confidentiality of Alcohol and Drug Abuse Patient Records regulations: The Federal rules restrict any use of the information to criminally investigate or prosecute any alcohol or drug abuse patient.[facility]In the event this information is protected by the Federal Confidentiality of Alcohol and Drug Abuse Patient Records regulations: The Federal rules restrict any use of the information to criminally investigate or prosecute any alcohol or drug abuse patient.[facility] NorthIn the event this information is protected by the Federal Confidentiality of Alcohol and Drug Abuse Patient Records regulations: The Federal rules restrict any use of the information to criminally investigate or prosecute any alcohol or drug abuse patient.[facility] NorthIn the event this information is protected by the Federal Confidentiality of Alcohol and Drug Abuse Patient Records regulations: The Federal rules restrict any use of the information to criminally investigate or prosecute any alcohol or drug abuse patient.[facility] NorthIn the event this information is protected by the Federal Confidentiality of Alcohol and Drug Abuse Patient Records regulations: The Federal rules restrict any use of the information to criminally investigate or prosecute any alcohol or drug abuse patient.[facility] NorthIn the event this information is protected by the Federal Confidentiality of Alcohol and Drug Abuse Patient Records regulations: The Federal rules restrict any use of the information to criminally investigate or prosecute any alcohol or drug abuse patient.[facility] NorthIn the event this information is protected by the Federal Confidentiality of Alcohol and Drug Abuse Patient Records regulations: The Federal rules restrict any use of the information to criminally investigate or prosecute any alcohol or drug abuse patient.[facility] NorthIn the event this information is protected by the Federal Confidentiality of Alcohol and Drug Abuse Patient Records regulations: The Federal rules restrict any use of the information to criminally investigate or prosecute any alcohol or drug abuse patient.[facility] NorthIn the event this information is protected by the Federal Confidentiality of Alcohol and Drug Abuse Patient Records regulations: The Federal rules restrict any use of the information to criminally investigate or prosecute any alcohol or drug abuse patient.[facility] NorthIn the event this information is protected by the Federal Confidentiality of Alcohol and Drug Abuse Patient Records regulations: The Federal rules restrict any use of the information to criminally investigate or prosecute any alcohol or drug abuse patient.[facility] NorthIn the event this information is protected by the Federal Confidentiality of Alcohol and Drug Abuse Patient Records regulations: The Federal rules restrict any use of the information to criminally investigate or prosecute any alcohol or drug abuse patient.[facility] NorthIn the event this information is protected by the Federal Confidentiality of Alcohol and Drug Abuse Patient Records regulations: The Federal rules restrict any use of the information to criminally investigate or prosecute any alcohol or drug abuse patient.[facility] NorthIn the event this information is protected by the Federal Confidentiality of Alcohol and Drug Abuse Patient Records regulations: The Federal rules restrict any use of the information to criminally investigate or prosecute any alcohol or drug abuse patient.[facility] NorthIn the event this information is protected by the Federal Confidentiality of Alcohol and Drug Abuse Patient Records regulations: The Federal rules restrict any use of the information to criminally investigate or prosecute any alcohol or drug abuse patient.[facility] NorthIn the event this information is protected by the Federal Confidentiality of Alcohol and Drug Abuse Patient Records regulations: The Federal rules restrict any use of the information to criminally investigate or prosecute any alcohol or drug abuse patient.[facility] NorthIn the event this information is protected by the Federal Confidentiality of Alcohol and Drug Abuse Patient Records regulations: The Federal rules restrict any use of the information to criminally investigate or prosecute any alcohol or drug abuse patient.[facility] NorthIn the event this information is protected by the Federal Confidentiality of Alcohol and Drug Abuse Patient Records regulations: The Federal rules restrict any use of the information to criminally investigate or prosecute any alcohol or drug abuse patient.[facility] NorthIn the event this information is protected by the Federal Confidentiality of Alcohol and Drug Abuse Patient Records regulations: The Federal rules restrict any use of the information to criminally investigate or prosecute any alcohol or drug abuse patient.[facility] NorthIn the event this information is protected by the Federal Confidentiality of Alcohol and Drug Abuse Patient Records regulations: The Federal rules restrict any use of the information to criminally investigate or prosecute any alcohol or drug abuse patient.[facility] NorthIn the event this information is protected by the Federal Confidentiality of Alcohol and Drug Abuse Patient Records regulations: The Federal rules restrict any use of the information to criminally investigate or prosecute any alcohol or drug abuse patient.[facility] NorthIn the event this information is protected by the Federal Confidentiality of Alcohol and Drug Abuse Patient Records regulations: The Federal rules restrict any use of the information to criminally investigate or prosecute any alcohol or drug abuse patient.[facility] NorthIn the event this information is protected by the Federal Confidentiality of Alcohol and Drug Abuse Patient Records regulations: The Federal rules restrict any use of the information to criminally investigate or prosecute any alcohol or drug abuse patient.[facility] NorthIn the event this information is protected by the Federal Confidentiality of Alcohol and Drug Abuse Patient Records regulations: The Federal rules restrict any use of the information to criminally investigate or prosecute any alcohol or drug abuse patient.[facility] NorthIn the event this information is protected by the Federal Confidentiality of Alcohol and Drug Abuse Patient Records regulations: The Federal rules restrict any use of the information to criminally investigate or prosecute any alcohol or drug abuse patient.[facility] NorthIn the event this information is protected by the Federal Confidentiality of Alcohol and Drug Abuse Patient Records regulations: The Federal rules restrict any use of the information to criminally investigate or prosecute any alcohol or drug abuse patient.[facility] NorthIn the event this information is protected by the Federal Confidentiality of Alcohol and Drug Abuse Patient Records regulations: The Federal rules restrict any use of the information to criminally investigate or prosecute any alcohol or drug abuse patient.[facility] NorthIn the event this information is protected by the Federal Confidentiality of Alcohol and Drug Abuse Patient Records regulations: The Federal rules restrict any use of the information to criminally investigate or prosecute any alcohol or drug abuse patient.[facility] NorthIn the event this information is protected by the Federal Confidentiality of Alcohol and Drug Abuse Patient Records regulations: The Federal rules restrict any use of the information to criminally investigate or prosecute any alcohol or drug abuse patient.[facility] NorthIn the event this information is protected by the Federal Confidentiality of Alcohol and Drug Abuse Patient Records regulations: The Federal rules restrict any use of the information to criminally investigate or prosecute any alcohol or drug abuse patient.[facility] NorthIn the event this information is protected by the Federal Confidentiality of Alcohol and Drug Abuse Patient Records regulations: The Federal rules restrict any use of the information to criminally investigate or prosecute any alcohol or drug abuse patient.[facility] NorthIn the event this information is protected by the Federal Confidentiality of Alcohol and Drug Abuse Patient Records regulations: The Federal rules restrict any use of the information to criminally investigate or prosecute any alcohol or drug abuse patient.[facility] NorthIn the event this information is protected by the Federal Confidentiality of Alcohol and Drug Abuse Patient Records regulations: The Federal rules restrict any use of the information to criminally investigate or prosecute any alcohol or drug abuse patient.[facility] NorthIn the event this information is protected by the Federal Confidentiality of Alcohol and Drug Abuse Patient Records regulations: The Federal rules restrict any use of the information to criminally investigate or prosecute any alcohol or drug abuse patient.[facility] NorthIn the event this information is protected by the Federal Confidentiality of Alcohol and Drug Abuse Patient Records regulations: The Federal rules restrict any use of the information to criminally investigate or prosecute any alcohol or drug abuse patient.[facility] NorthIn the event this information is protected by the Federal Confidentiality of Alcohol and Drug Abuse Patient Records regulations: The Federal rules restrict any use of the information to criminally investigate or prosecute any alcohol or drug abuse patient.[facility] NorthIn the event this information is protected by the Federal Confidentiality of Alcohol and Drug Abuse Patient Records regulations: The Federal rules restrict any use of the information to criminally investigate or prosecute any alcohol or drug abuse patient.[facility] NorthIn the event this information is protected by the Federal Confidentiality of Alcohol and Drug Abuse Patient Records regulations: The Federal rules restrict any use of the information to criminally investigate or prosecute any alcohol or drug abuse patient.[facility] NorthIn the event this information is protected by the Federal Confidentiality of Alcohol and Drug Abuse Patient Records regulations: The Federal rules restrict any use of the information to criminally investigate or prosecute any alcohol or drug abuse patient.[facility] NorthIn the event this information is protected by the Federal Confidentiality of Alcohol and Drug Abuse Patient Records regulations: The Federal rules restrict any use of the information to criminally investigate or prosecute any alcohol or drug abuse patient.[facility] NorthIn the event this information is protected by the Federal Confidentiality of Alcohol and Drug Abuse Patient Records regulations: The Federal rules restrict any use of the information to criminally investigate or prosecute any alcohol or drug abuse patient.[facility] NorthIn the event this information is protected by the Federal Confidentiality of Alcohol and Drug Abuse Patient Records regulations: The Federal rules restrict any use of the information to criminally investigate or prosecute any alcohol or drug abuse patient.[facility] NorthIn the event this information is protected by the Federal Confidentiality of Alcohol and Drug Abuse Patient Records regulations: The Federal rules restrict any use of the information to criminally investigate or prosecute any alcohol or drug abuse patient.[facility] NorthIn the event this information is protected by the Federal Confidentiality of Alcohol and Drug Abuse Patient Records regulations: The Federal rules restrict any use of the information to criminally investigate or prosecute any alcohol or drug abuse patient.[facility] NorthIn the event this information is protected by the Federal Confidentiality of Alcohol and Drug Abuse Patient Records regulations: The Federal rules restrict any use of the information to criminally investigate or prosecute any alcohol or drug abuse patient.[facility] NorthIn the event this information is protected by the Federal Confidentiality of Alcohol and Drug Abuse Patient Records regulations: The Federal rules restrict any use of the information to criminally investigate or prosecute any alcohol or drug abuse patient.[facility] NorthIn the event this information is protected by the Federal Confidentiality of Alcohol and Drug Abuse Patient Records regulations: The Federal rules restrict any use of the information to criminally investigate or prosecute any alcohol or drug abuse patient.[facility] NorthIn the event this information is protected by the Federal Confidentiality of Alcohol and Drug Abuse Patient Records regulations: The Federal rules restrict any use of the information to criminally investigate or prosecute any alcohol or drug abuse patient.[facility] NorthIn the event this information is protected by the Federal Confidentiality of Alcohol and Drug Abuse Patient Records regulations: The Federal rules restrict any use of the information to criminally investigate or prosecute any alcohol or drug abuse patient.[facility] NorthIn the event this information is protected by the Federal Confidentiality of Alcohol and Drug Abuse Patient Records regulations: The Federal rules restrict any use of the information to criminally investigate or prosecute any alcohol or drug abuse patient.[facility] NorthIn the event this information is protected by the Federal Confidentiality of Alcohol and Drug Abuse Patient Records regulations: The Federal rules restrict any use of the information to criminally investigate or prosecute any alcohol or drug abuse patient.[facility] NorthIn the event this information is protected by the Federal Confidentiality of Alcohol and Drug Abuse Patient Records regulations: The Federal rules restrict any use of the information to criminally investigate or prosecute any alcohol or drug abuse patient.[facility] NorthIn the event this information is protected by the Federal Confidentiality of Alcohol and Drug Abuse Patient Records regulations: The Federal rules restrict any use of the information to criminally investigate or prosecute any alcohol or drug abuse patient.[facility] NorthIn the event this information is protected by the Federal Confidentiality of Alcohol and Drug Abuse Patient Records regulations: The Federal rules restrict any use of the information to criminally investigate or prosecute any alcohol or drug abuse patient.[facility] NorthIn the event this information is protected by the Federal Confidentiality of Alcohol and Drug Abuse Patient Records regulations: The Federal rules restrict any use of the information to criminally investigate or prosecute any alcohol or drug abuse patient.[facility] NorthIn the event this information is protected by the Federal Confidentiality of Alcohol and Drug Abuse Patient Records regulations: The Federal rules restrict any use of the information to criminally investigate or prosecute any alcohol or drug abuse patient.[facility] NorthIn the event this information is protected by the Federal Confidentiality of Alcohol and Drug Abuse Patient Records regulations: The Federal rules restrict any use of the information to criminally investigate or prosecute any alcohol or drug abuse patient.[facility] NorthIn the event this information is protected by the Federal Confidentiality of Alcohol and Drug Abuse Patient Records regulations: The Federal rules restrict any use of the information to criminally investigate or prosecute any alcohol or drug abuse patient.[facility] NorthIn the event this information is protected by the Federal Confidentiality of Alcohol and Drug Abuse Patient Records regulations: The Federal rules restrict any use of the information to criminally investigate or prosecute any alcohol or drug abuse patient.[facility] NorthIn the event this information is protected by the Federal Confidentiality of Alcohol and Drug Abuse Patient Records regulations: The Federal rules restrict any use of the information to criminally investigate or prosecute any alcohol or drug abuse patient.[facility] NorthIn the event this information is protected by the Federal Confidentiality of Alcohol and Drug Abuse Patient Records regulations: The Federal rules restrict any use of the information to criminally investigate or prosecute any alcohol or drug abuse patient.[facility] NorthIn the event this information is protected by the Federal Confidentiality of Alcohol and Drug Abuse Patient Records regulations: The Federal rules restrict any use of the information to criminally investigate or prosecute any alcohol or drug abuse patient.[facility] NorthIn the event this information is protected by the Federal Confidentiality of Alcohol and Drug Abuse Patient Records regulations: The Federal rules restrict any use of the information to criminally investigate or prosecute any alcohol or drug abuse patient.[facility] NorthIn the event this information is protected by the Federal Confidentiality of Alcohol and Drug Abuse Patient Records regulations: The Federal rules restrict any use of the information to criminally investigate or prosecute any alcohol or drug abuse patient.[facility] NorthIn the event this information is protected by the Federal Confidentiality of Alcohol and Drug Abuse Patient Records regulations: The Federal rules restrict any use of the information to criminally investigate or prosecute any alcohol or drug abuse patient.[facility] NorthIn the event this information is protected by the Federal Confidentiality of Alcohol and Drug Abuse Patient Records regulations: The Federal rules restrict any use of the information to criminally investigate or prosecute any alcohol or drug abuse patient.[facility] NorthIn the event this information is protected by the Federal Confidentiality of Alcohol and Drug Abuse Patient Records regulations: The Federal rules restrict any use of the information to criminally investigate or prosecute any alcohol or drug abuse patient.[facility] NorthIn the event this information is protected by the Federal Confidentiality of Alcohol and Drug Abuse Patient Records regulations: The Federal rules restrict any use of the information to criminally investigate or prosecute any alcohol or drug abuse patient.[facility] NorthIn the event this information is protected by the Federal Confidentiality of Alcohol and Drug Abuse Patient Records regulations: The Federal rules restrict any use of the information to criminally investigate or prosecute any alcohol or drug abuse patient.[facility] NorthIn the event this information is protected by the Federal Confidentiality of Alcohol and Drug Abuse Patient Records regulations: The Federal rules restrict any use of the information to criminally investigate or prosecute any alcohol or drug abuse patient.[facility] NorthIn the event this information is protected by the Federal Confidentiality of Alcohol and Drug Abuse Patient Records regulations: The Federal rules restrict any use of the information to criminally investigate or prosecute any alcohol or drug abuse patient.[facility] Reason for Visit (unrecogniz ed section and content) ReasonCommentsHeadacheSpecialtyDiagnoses / ProceduresReferred By ContactReferred To Contact Diagnoses Intractable chronic migraine without aura and without status migrainosus Procedures INJECTION, EPTINEZUMAB-JJMR, 1 MG Sagar Barth, UMANG.LAUNCH OPERATOR [address] [place] [address] Phone: tel: fax: Neurology [address] [place], [place] Phone: tel: fax: Referral IDStatusReasonStart DateExpiration DateVisits RequestedVisits [id number]/31/20248/[id number]tnbhvt SpecialtyDiagnoses / ProceduresReferred By ContactReferred To Contact Diagnoses Intractable chronic migraine without aura and without status migrainosus Procedures INJECTION, EPTINEZUMAB-JJMR, 1 MG Sagar Barth, POLICE INSPECTOR.LAUNCH OPERATOR [address] [place] [address] Phone: tel: fax: Neurology [address] [place] [id number] Phone: tel: fax: ReasonCommentsInfusionHeadacheSpecialtyDiagnoses / ProceduresReferred By Contact Referred To ContactNeurology / HEADACHE Diagnoses NON-DHE #1 Procedures INFUSION HEADACHE Suzan Ivey APRN.LAUNCH OPERATOR [address] [place] [address] Neur Headache Main S2 [address] [place] [id number] Referral IDStatusReasonStart DateExpiration DateVisits RequestedVisits [id number]/21/202412/31/[id number] SpecialtyDiagnoses / ProceduresReferred By ContactReferred To Contact Diagnoses Intractable chronic migraine without aura and without status migrainosus Procedures PROVIDER ORDERED FOLLOW UP OFFICE/OUTPATIENT [facility] 60 MINUTES Sagar Barth APRN.LAUNCH OPERATOR [address] [place] [address] Referral IDStatusReasonStart DateExpiration DateVisits RequestedVisits [id number] PCP Requested Referral [id number] / ProceduresReferred By ContactReferred To Contact Diagnoses Intractable chronic migraine without aura and without status migrainosus Procedures INJECTION, EPTINEZUMAB-JJMR, 1 MG Sagar Barth, UMANG.LAUNCH OPERATOR [address] [place] [address] Neur Headache Main S[address] [place] [address] Referral IDStatusReasonStart DateExpiration DateVisits RequestedVisits [id number]/31/20241/[id number] Block SpecialtyDiagnoses / ProceduresReferred By ContactReferred To ContactNeurology / HEADACHE Diagnoses NON-DHE #1 Procedures INFUSION HEADACHE Suzan Ivey APRN.LAUNCH OPERATOR [address] [place] [address] Neur Headache Main S[address] [place] [address] ReasonCommentsFuture AppointmentNew [place], [place], AnyReasonCommentsMigraineseen at [place] yesterday for Migrane and D & C for miscarrageReasonCommentsNew Patient ReasonCommentsOrdersReasonCommentsSeizuresFollow UpReasonCommentsMigrainex 2 week lasts up to 4 days light sensitivity, sees silver dots looks like stars. Goes into convulsions during migraines. No meds for migraines has ever worked. ReasonCommentsAppointmentinfusionSpecialtyDiagnoses / ProceduresReferred By ContactReferred To ContactNeurology / HEADACHE Diagnoses DHE Procedures INFUSION HEADACHE Abdifatah Brady MD [address] [place] [address] Neur Headache Main S[address] [place] [address] Referral IDStatusReasonStart DateExpiration DateVisits RequestedVisits [id number]/8/20238/[id number] MigraineReason CommentsChronic MigraineReasonCommentsInsurance AuthorizationZomig 5MG nasal sprayReasonCommentsInfusionSpecialtyDiagnoses / ProceduresReferred By Contact Referred To ContactNeurology / HEADACHE Diagnoses POSSIBLE DHE/WAITING FOR ORDERS Procedures INFUSION HEADACHE Self Neur Headache Main S[address] [place] [address] Referral IDStatusReasonStart DateExpiration DateVisits RequestedVisits [id number]/21/202312/[id number] DateCommentsRefill Aqqlkli1412/09/2022ReasonOnset DateCommentsRefill Psfgpvw8912/13/2022ReasonComments InfusionHEADACHE INFUSIONSReasonCommentsInsurance AuthorizationAimovig 70MG/ML auto-injectorsReasonCommentsAppointmentPatient currently receiving infusions for headache. She is interested in learning about reboot program. Please schedule patient for evaluation if appropriate to proceed.ReasonCommentsMigraineReason CommentsMigraineSpecialtyDiagnoses / ProceduresReferred By ContactReferred To ContactNeurology / HEADACHE Diagnoses Chronic migraine without aura, intractable, without status migrainosus Migraines Nerve Block Procedures INJECTION AA&/STRD GREATER OCCIPITAL NERVE NERVE BLOCK Sagar Barth, UMANG.LAUNCH OPERATOR [address] [place] [address] Tyrone Dolan MD, PhD [address] [facility] [address] [place] [address] Referral IDStatusReasonStart DateExpiration DateVisits RequestedVisits [id number]/8/202412/[id number] DateCommentsRefill Yemlxpb0311/10/2023SpecialtyDiagnoses / ProceduresReferred By ContactReferred To Contact Diagnoses Intractable chronic migraine without aura and without status migrainosus Procedures INJECTION, EPTINEZUMAB-JJMR, 1 MG Sagar Barth, POLICE INSPECTOR.LAUNCH OPERATOR [address] [place] [address] Neur Headache Main S[address] [place] [address] ReasonCommentsFatigueDizzy, shaky, very tired, can't stay awake. [...] for preoperative pulmonary examination Mundo Martinez MD [address] [place] [address] Phone: tel: fax: Jefry Hills MD [address], [address] [address] Phone: tel: fax: Referral IDStatusReasonStart DateExpiration DateVisits RequestedVisits [id number] Review Specialty Services Required [id number] CheckReasonCommentsFlu SymptomsAbdominal PainSpecialtyDiagnoses / ProceduresReferred By ContactReferred To Contact Diagnoses Sepsis ([facility]) Abdominal wall cellulitis [facility] Department [address] [facility] [place] [address] Phone: tel: fax: Referral IDStatusReasonStart DateExpiration DateVisits RequestedVisits [id number] Women VisitReasonCommentsPost-op2 week post-opReasonCommentsEstablish CareReasonCommentsMigraineChronic MigraineReason CommentsInsurance AuthorizationubrelvyReasonCommentsFollow-upReasonCommentssinus infectionReasonOnset DateCommentsMed Ujomiq1305/24/2024ReasonOnset DateComments Refill Hyxpcrw0305/31/2024ReasonCommentsFatigueReasonCommentsMed Change Request ReasonCommentsVaginitis/Bacterial VaginosisReasonCommentsInfusionHeadache infusion schedulingReasonCommentsEye PainSpecialtyDiagnoses / ProceduresReferred By ContactReferred To ContactNeurology / HEADACHE Diagnoses NON-DHE INFUSION Procedures DEHYDROERGOTAMINE INJECTION INFUSION HEADACHE [facility] [address] [place] [address] Phone: tel:91 Neurology [address] [place] [address] Phone: tel: fax: Referral IDStatusReasonStart DateExpiration DateVisits RequestedVisits [id number]/13/202512/[id number] AuthorizationZavzpret 10MG/ACT solutionZavzpret 10MG/ACT solutionReasonOnset DateCommentsGenetic Testing Prior Authorization Pmclcjy9106/25/2024ReasonComments Discuss HormonesReasonCommentsNasal CongestionReasonCommentsAnnual ExamObesity ReasonOnset DateCommentsSleep Lab12/12/2024omp [...] needed per OBGYN) lidocaine-EPINEPHrine (XYLOCAINE W/EPI) 1 %-1:005113 injection 30 mL (COMPLETED) 30 mL, intradermal, [...] * 1525 (Given - Provider: Lamar Carrington [facility]Mag[facility]) iohexoL (OMNIPAQUE) 300 mg iodine/mL [...] 1 dose * 1525 (Given - Provider: ESVERINO Pérez) INFORMATION SOURCE (unrecogn ized section and content) DATE CREATED AUTHOR 12/26/2020 [facility] DATE CREATED AUTHOR AUTHOR'S ORGANIZ ATION 10/25/2021 [facility] DATE CREATED AUTHOR AUTHOR'S ORGANIZ ATION 05/26/2022 [facility] DATE CREATED AUTHOR AUTHOR'S ORGANIZ ATION 08/02/2022 [facility] DATE CREATED AUTHOR AUTHOR'S ORGANIZ ATION 07/20/2024 [facility] DATE CREATED AUTHOR AUTHOR'S ORGANIZ ATION 09/07/2024 [facility] DATE CREATED AUTHOR AUTHOR'S ORGANIZ ATION 12/08/2024 [facility] DATE CREATED AUTHOR AUTHOR'S ORGANIZ ATION 12/18/2024 [facility] Ordered Prescriptions (unrec ognized section and content) PrescriptionSigDispensedRefillsStart DateEnd Date lamoTRIgine (LAMICTAL) 25 MG tablet Take 2 tablets by mouth daily 30 tablet Care Teams (unrecognized sec tion and content) Team MemberRelationshipSpecialtyStart DateEnd Date Derik Weber, POLICE INSPECTOR - LAUNCH OPERATOR [address] [place] [address] PCP - GeneralNurse Ewgetznkhxjh13/4/21Team MemberRelationshipSpecialtyStart Date End Date Abdifatah Brady (Historical) [...] Blair MD [address] [place] [address] PCP - GeneralFamily Medicine03/14/23Team MemberRelationshipSpecialtyStart DateEnd Date Abdifatah Brady (Historical) PCP - General05/21/13Team MemberRelationshipSpecialtyStart DateEnd Date Lamont Blair MD [address] [place] [address] PCP - GeneralFamily Medicine03/14/23Team MemberRelationshipSpecialtyStart DateEnd Date Lamont Blair MD [address] [place] [address] PCP - GeneralFamily Medicine03/14/23Team MemberRelationshipSpecialtyStart DateEnd Date Abdifatah Brady (Historical) PCP - General05/21/13Team MemberRelationshipSpecialtyStart DateEnd Date Abdifatah Brady (Historical) PCP - General05/21/13Team MemberRelationshipSpecialtyStart DateEnd Date Lamnot Blair MD [address] [place] [address] PCP - GeneralFamily Medicine03/14/23Team MemberRelationshipSpecialtyStart DateEnd Date Jose Antonio Abdifatah Lynn (Historical) PCP - General05/21/13Team MemberRelationshipSpecialtyStart DateEnd Date Lamont Blair MD [address] [place] [address] PCP - GeneralFamily Medicine03/14/23Team MemberRelationshipSpecialtyStart DateEnd Date Lamont Blair MD [address] [place] [address] PCP - GeneralFamily Medicine03/14/23Team MemberRelationshipSpecialtyStart DateEnd Date Lamont Blair MD [address] [place] [address] PCP - GeneralFamily Medicine03/14/23Team MemberRelationshipSpecialtyStart DateEnd Date Lamont Blair MD [address] [place] [address] PCP - GeneralFamily Medicine03/14/23Team MemberRelationshipSpecialtyStart DateEnd Date Lamont Blair MD [address] [place] [address] PCP - GeneralFamily Medicine03/14/23Team MemberRelationshipSpecialtyStart DateEnd Date Lamont Blair MD [address] [place] [address] PCP - GeneralFamily Medicine03/14/23Team MemberRelationshipSpecialtyStart DateEnd Date Lamont Blair MD [address] [place] [address] PCP - GeneralFamily Medicine03/14/23Team MemberRelationshipSpecialtyStart DateEnd Date Lamont Blair MD [address] [place] [address] PCP - GeneralFamily Medicine03/14/23Team MemberRelationshipSpecialtyStart DateEnd Date Lamont Blair MD [address] [place] [address] PCP - GeneralFamily Medicine03/14/23Team MemberRelationshipSpecialtyStart DateEnd Date Lamont Blair MD [address] [place] [address] PCP - GeneralFamily Medicine03/14/23Team MemberRelationshipSpecialtyStart DateEnd Date Lamont Blair MD [address] [place] [address] PCP - GeneralFamily Medicine03/14/23Team MemberRelationshipSpecialtyStart DateEnd Date Lamont Blair MD [address] [place] [address] PCP - GeneralFamily Medicine03/14/23Team MemberRelationshipSpecialtyStart DateEnd Date Lamont Blair MD [address] [place] [address] PCP - GeneralFamily Medicine03/14/23Team MemberRelationshipSpecialtyStart DateEnd Date Lamont Blair MD [address] [place] [address] PCP - GeneralFamily Medicine03/14/23Team MemberRelationshipSpecialtyStart DateEnd Date [...] Corine Gold MD [address] [place] [address] PCP - GeneralInternal Medicine03/25/24Team MemberRelationshipSpecialtyStart Date End Date Corine Gold MD [address], [place] [address] PCP - GeneralInternal Medicine03/25/24Team MemberRelationshipSpecialtyStart Date End Date Corine Gold MD [address], [place] [address] [facility] - [facility]03/25/24Team MemberRelationshipSpecialtyStart Date End Date Corine Gold MD [address] [place] [address] PCP - GeneralInternal Medicine03/25/24Team MemberRelationshipSpecialtyStart Date End Date Lamont Blair MD [facility] [place] [address] PCP - GeneralFamily Medicine03/14/23Team MemberRelationshipSpecialtyStart DateEnd Date Corine Gold MD [address] [place] [address] PCP - GeneralInternal Medicine03/25/24Team MemberRelationshipSpecialtyStart Date End Date Lamont Blair MD [address] [place] [address] PCP - [facility] Medicine03/14/23am MemberRelationshipSpecialtyStart DateEnd Date Lamont Blair MD [address] [place] [address] PCP - [facility]03/14/23am MemberRelationshipSpecialtyStart DateEnd Date Corine Gold MD [address], [place] [address] [facility] - [facility]03/25/24 MemberRelationshipSpecialtyStart Date End Date Corine Gold MD [address], [place] [address] [facility] - [facility]03/25/24am MemberRelationshipSpecialtyStart Date End Date Corine Gold MD [address] [place] [address] [facility] - [facility]03/25/24am MemberRelationshipSpecialtyStart Date End Date Corine Gold MD [address] [place] [address] [facility] - [facility]03/25/24Team MemberRelationshipSpecialtyStart Date End Date Corine Gold MD [address] [place] [address] PCP - GeneralInternal Medicine03/25/24am MemberRelationshipSpecialtyStart Date End Date Corine Gold MD [address], [place] [address] PCP - GeneralInternal Medicine03/25/24am MemberRelationshipSpecialtyStart Date End Date Corine Gold MD [address], [place] [address] PCP - [facility]03/25/24 MemberRelationshipSpecialtyStart Date End Date Corine Gold MD [address], [place] [address] PCP - [facility]03/25/24 MemberRelationshipSpecialtyStart Date End Date Corine Gold MD [address], [place] [address] PCP - [facility]03/25/24am MemberRelationshipSpecialtyStart Date End Date Corine Gold MD [address], [place] [address] PCP - GeneralInternal Medicine03/25/24am MemberRelationshipSpecialtyStart Date End Date Corine Gold MD [address], [place] [address] PCP - GeneralInternal Medicine03/25/24Team MemberRelationshipSpecialtyStart Date End Date Abdifatah Brady (Historical) PCP - General05/21/13Team MemberRelationshipSpecialtyStart DateEnd Date Corine Gold MD [address] [place] [address] PCP - GeneralInternal Medicine03/25/24Team MemberRelationshipSpecialtyStart Date End Date Corine Gold MD [address] [place] [address] PCP - [facility]03/25/24am MemberRelationshipSpecialtyStart Date End Date Unallocated, Noms MD Anoop [address] [place] [address] PCP - [facility] Medicine04/22/24Team MemberRelationshipSpecialtyStart DateEnd Date Unallocated, Noms MD Anoop [address] [place] [address] PCP - [facility] Medicine04/22/24 MemberRelationshipSpecialtyStart DateEnd Date Corine Gold MD [address] [place] [address] [facility] - [facility]06/11/24Team MemberRelationshipSpecialtyStart DateEnd Date Corine Gold MD [address] [place] [address] PCP - [facility]03/25/24Team MemberRelationshipSpecialtyStart Date End Date Corine Gold MD [address] [place] [address] P[facility] - [facility]06/11/24Team MemberRelationshipSpecialtyStart DateEnd Date Abdifatah Brady (Historical) PCP - General05/21/13am MemberRelationshipSpecialtyStart DateEnd Date Abdifatah Brady (Historical) PCP - General05/21/13am MemberRelationshipSpecialtyStart DateEnd Date Corine Gold MD [address], [place] [address] PCP - GeneralInternal Medicine03/25/24Team MemberRelationshipSpecialtyStart Date End Date Corine Gold MD [address], [place] [facility] [address] PCP - [facility]03/25/24Te MemberRelationshipSpecialtyStart Date End Date Corine Gold MD [address], [place] [address] PCP - [facility]03/25/24 MemberRelationshipSpecialtyStart Date End Date Corine Gold MD [address], [place] [address] PCP - GeneralInternal Medicine03/25/24Team MemberRelationshipSpecialtyStart Date End Date Corine Gold MD [address], [place] [address] PCP - GeneralInternal Medicine03/25/24am MemberRelationshipSpecialtyStart Date End Date Lamont Blair MD [facility]14/ Unallocated, Arlen Davalos MD [address] [place] [address] PCP - GeneralFamdly Medicine Lamont Blair MD [address] [place] [address] PCP - [facility]05/21/2510Team MemberRelationshipSpecialtyStart Date End Date Corine Gold MD [address] [facility] [place], [place] [id number] PCP - GeneralInternal Medicine03/25/24 Inactive Administered Medications [...] and Hematology/Oncology 4) Eclampsia or Preeclampsia New Bag/Syringe/Ssspwk0504/12/2023 12:24 PM EST2 g280 mL/hr methocarbamol iv infusion 1,000 mg in NaCl 0.9% 100 mL (ROBAXIN) 1,000 mg, INTRAVENOUS, Administer over 30 Minutes, ONCE, 1 dose, On Mon04/12/23 at 1130, AdministerIV while in recumbent position. Maintain position for at least 10-15 minutes following infusion. New Bag/Syringe/Cntbge8904/12/2023 11:50 AM EST1,000 mg NaCl 0.9% 1,000 mL iv bolus 1,000 mL, INTRAVENOUS, at 999 mL/hr, Administer over 1 Hours, ONCE, 1 dose, On Mon04/12/23 at 1130 New Bag/Syringe/Pbmtqq2304/12/2023 11:30 AM EST1,000 mL999 mL/hr promethazine 25 [...] and Hematology/Oncology 4) Eclampsia or Preeclampsia New Bag/Syringe/Brdozk7004/13/2023 9:46 AM EST2 g250 mL/hr methocarbamol iv infusion 1,000 mg in NaCl 0.9% 100 mL (ROBAXIN) 1,000 mg, INTRAVENOUS, Administer over 30 Minutes, ONCE, 1 dose, On Meg 04/13/23 at 0830, AdministerIV while in recumbent position. Maintain position for at least 10-15 minutes following infusion. New Bag/Syringe/Luptqu8004/13/2023 9:12 AM EST1,000 mg NaCl 0.9% 1,000 mL iv bolus 1,000 mL, INTRAVENOUS, at 999 mL/hr, Administer over 1 Hours, ONCE, 1 dose, On Mon04/13/23 at 0830 New Bag/Syringe/Wmmept9104/13/2023 8:53 AM EST1,000 mL999 mL/hr promethazine 25 [...] 0928,Sedation/Dystonia/Akathisia/Anxiety 3rd line Given04/14/2023 9:28 AM EST25 tePykqq2204/14/2023 8:46 AM EST25 mg keTORolac 30 mg [...] and Hematology/Oncology 4) Eclampsia or Preeclampsia New Bag/Syringe/Vralan7204/14/2023 10:07 AM EST2 g250 mL/hr methocarbamol iv infusion 1,000 mg in NaCl 0.9% 100 mL (ROBAXIN) 1,000 mg, INTRAVENOUS, Administer over 30 Minutes, ONCE, 1 dose, On Mon04/14/23 at 0830, AdministerIV while in recumbent position. Maintain position for at least 10-15 minutes following infusion. Plnwekpvc67/23/2024 9:30 AM ESTNew Bag/Syringe/Bnhpij3604/14/2023 8:53 AM EST1,000 mg NaCl 0.9% 1,000 mL iv bolus 1,000 mL, INTRAVENOUS, at 999 mL/hr, Administer over 1 Hours, ONCE, 1 dose, On Mon04/14/23 at 0830 Vxssdscqw31/23/2024 9:30 AM JYE009 mL/hrNew Bag/Syringe/Uzfpjh4904/14/2023 8:53 AM EST1,000 mL999 mL/hr prochlorperazine 10 [...] BE BASED ON THE PRIMARY CLINICAL RECORDS. [facility]. provides no warranty or guarantee of the accuracy or completeness of information in this document.
[2025-02-01 12:13] LABS: Anion Gap 16.0; Blood Urea Nitrogen 20.0 mg/dL (7.0-18.0); Calcium 8.8 mg/dL (8.5-10.1); Carbon Dioxide 26.5 mmol/L (21.0-32.0); Chloride 105 mmol/L (98-107); Estimated GFR (African America >60 (>=60 mL/min/1.73m^2); Estimated GFR (Non-African Ame >60 (>=60 mL/min/1.73m^2); Glucose 108 mg/dL (74-106); Potassium 4.5 mmol/L (3.5-5.1); Sodium 143 mmol/L (136-145)
[2025-02-01 12:28] LABS: Hematocrit 37.9 % (36.0-48.0); Hemoglobin 12.5 g/dL (12.0-16.0); Immature Granulocytes Abs Auto 0.11 10^3/uL (0.00-0.03); Immature Granulocytes Pct Auto 0.9 % (0.0-0.5); Lymphocytes Absolute Auto 1.1 10^3/uL (1.2-3.8); Mean Corpuscular HGB Conc 33.0 g/dL (29.9-35.2); Mean Corpuscular Hemoglobin 29.2 pg (26.7-34.0); Mean Corpuscular Volume 88.6 fL (81.0-99.0); Platelet Count 212 10^3/uL (150-450); Red Blood Count 4.28 10^6/uL (4.20-5.40); White Blood Count 12.3 10^3/uL (4.0-11.0)
--- NOTE | 2025-02-01 17:09 | PM.IMHP1 ---
Internal Medicine - H&P: HPI History of Present Illness Chief complaint: Asthma with acute axacerbation Narrative: This is a 29 y.o female with past medical Hx of Asthma, Migraine, seizure, with frequent hospitalizations and ED visit for migraine headaches. Here with Shortness of breath. Hx obtained from the pt, ED staff, chart review. She reports nasal congestion, rhinorrhea that started 4 days ago, then were a/w productive cough and chest tightness with SOB. She went to the urgent care yesterday, tested negative for COVID and influenza that were negative, and was prescribed doxycycline and prednisone, but did not help along with the inhalers. She came to the ED for further workup and management. She presented to our facility July 2024 for asthma exacerbation. She denies smoking, alcohol use, or drug use. She does not report any new triggers, but tells me that this is the time of the year where she develops those symptoms. In the ED, [place] [address], chemistry was unremarkable, she tested negative for covid and influenza negative at the urgent care, and her CXR was negative. She was initially saturating in the low 90s on nasal cannula 3 liters, then improved to 96% on RA, but preferred to be admitted as she mentioned that her migraine was acting up. She is being observed under hospitalist service for further workup and management. Review of Systems ROS Status of ROS 10 or more systems reviewed and unremarkable except as noted in history and below [facility] Medical History (Updated 02/01/25 @ 12:37 by Wild Kendall MD) Chronic pain disorder ?G89.4 - Chronic pain syndrome (ICD-10) Migraine ?G43.909 - Migraine, unspecified, not intractable, without status migrainosus (ICD-10) Seizure disorder ?G40.909 - Epilepsy, unspecified, not intractable, without status epilepticus (ICD-10) Bipolar disorder ?F31.9 - Bipolar disorder, unspecified (ICD-10) Pelvic pain ?R10.2 - Pelvic and perineal pain (ICD-10) Bilateral occipital neuralgia ?M54.81 - Occipital neuralgia (ICD-10) Combative behavior ?R46.89 - Other symptoms and signs involving appearance and behavior (ICD-10) PCOS (polycystic ovarian syndrome) ?E28.2 - Polycystic ovarian syndrome (ICD-10) Mitral valve prolapse ?I34.1 - Nonrheumatic mitral (valve) prolapse (ICD-10) GERD (gastroesophageal reflux disease) ?K21.9 - Gastro-esophageal reflux disease without esophagitis (ICD-10) Depression ?F32.A - Depression, unspecified (ICD-10) Blood in urine ?R31.9 - Hematuria, unspecified (ICD-10) Acne ?L70.9 - Acne, unspecified (ICD-10) Dyspareunia Brain mass ?G93.89 - Other specified disorders of brain (ICD-10) Kidney stones ?N20.0 - Calculus of kidney (ICD-10) COVID-19 ?U07.1 - COVID-19 (ICD-10) Bronchitis ?J40 - Bronchitis, not specified as acute or chronic (ICD-10) Asthma ?J45.909 - Unspecified asthma, uncomplicated (ICD-10) Stress incontinence ?N39.3 - Stress incontinence (female) (male) (ICD-10) Dysuria ?R30.0 - Dysuria (ICD-10) Anxiety ?F41.9 - Anxiety disorder, unspecified (ICD-10) Surgical History H/O laparoscopy (07/21/22) ?Z98.890 - Other specified postprocedural states (ICD-10) S/P RAVI-BSO ?Z90.710 - Acquired absence of both cervix and uterus (ICD-10) ?Z90.722 - Acquired absence of ovaries, bilateral (ICD-10) ?Z90.79 - Acquired absence of other genital organ(s) (ICD-10) Hx laparoscopic cholecystectomy ?Z90.49 - Acquired absence of other specified parts of digestive tract (ICD-10) H/O: ?Z98.891 - History of uterine scar from previous surgery (ICD-10) History of appendectomy ?Z90.49 - Acquired absence of other specified parts of digestive tract (ICD-10) Family History Other Acid reflux Acute renal disease Afib Chromosomal disorder Delayed developmental milestones Diabetes Family history of hypertension High cholesterol Neuro-irritability due to autonomic dysfunction 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[employer] Known occupational exposures/hazards: No Highest level of school completed/degree received: high school graduate Do you want help with school or training: No Are you now , , , , never or living with a partner: living with partner In a typical week, how many times do you talk on the telephone with family, friends, or neighbors: 3 or more times per week How often do you get together with friends or relatives: 3 or more times per week How often do you attend zoroastrian or lutheran services: 4 or more times per year Do you belong to any clubs or organizations such as zoroastrian groups unions, [employer] or athletic groups, or school groups: no Total score: 3 Score interpretation: A score of greater than or equal to 2 indicates the lowest level of social isolation. Little interest or pleasure in doing things: not at all Feeling down, depressed, or hopeless: not at all Feel stressed/tense/nervous/anxious/difficulty sleeping: very much Life stressors: other Life stressor details: pt has 4 special needs kids Due to disability, difficulty making decisions: No Do you think of yourself as: straight/heterosexual Gender Identity: female Meds Home Medications and Allergies Home Medications ?Medication ?Instructions ?Recorded ?Confirmed ?Type diazepam 10 mg tablet 5 mg PO QID PRN seizures 07/20/22 02/01/25 History epinephrine 0.3 mg/0.3 mL 0.3 mg IM Q10M PRN anaphylaxis 07/20/22 02/01/25 History injection, auto-injector diphenhydramine HCl 25 mg capsule 75 mg PO Q6H PRN migraine headache 01/26/23 02/01/25 History (Benadryl) albuterol sulfate 90 mcg/actuation 2 puff inhalation Q4H PRN 08/16/23 02/01/25 History aerosol inhaler shortness of breath or wheezing magnesium oxide 400 mg (241.3 mg 400 mg PO .qhs 08/16/23 02/01/25 History magnesium) tablet zolmitriptan 5 mg nasal spray 1 spray intranasal Q2H PRN headache 08/16/23 02/01/25 History promethazine 25 mg tablet 25 mg PO Q6H PRN nausea and 12/29/24 02/01/25 Rx vomiting #14 tabs baclofen 10 mg tablet 10 mg PO TID 02/01/25 02/01/25 History carbamazepine 200 mg tablet 200 mg PO Q12H 02/01/25 02/01/25 History desvenlafaxine succinate 50 mg 50 mg PO Q24H 02/01/25 02/01/25 History tablet,extended release 24 hr doxycycline monohydrate 100 mg 100 mg PO Q12H 02/01/25 02/01/25 History capsule estradiol 1 mg tablet 1 mg PO DAILY 02/01/25 02/01/25 History fluocinolone acetonide oil 0.01 % 5 drp otic (ear) BID 02/01/25 02/01/25 History ear drops mometasone-formoterol HFA 200 2 inh inhalation Q12H 02/01/25 02/01/25 History mcg-5 mcg/actuation aerosol inhaler (Dulera) olanzapine 10 mg tablet 10 mg PO .qhs 02/01/25 02/01/25 History omeprazole 40 mg capsule,delayed 40 mg PO BID 02/01/25 02/01/25 History release prednisolone acetate 1 % eye 1 drp ophthalmic (eye) Q8H 02/01/25 02/01/25 History drops,suspension prednisone 20 mg tablet 20 mg PO DAILY 02/01/25 02/01/25 History progesterone micronized 100 mg 100 mg PO DAILY 02/01/25 02/01/25 History capsule scopolamine base 1 mg over 3 days 1 patch transdermal Q72H 02/01/25 02/01/25 History transdermal patch tiotropium bromide 2.5 2 puff inhalation QAM 02/01/25 02/01/25 History mcg/actuation mist for inhalation (Spiriva Respimat) tobramycin 0.3 % eye drops 1 drp ophthalmic (eye) .Q4HWA 02/01/25 02/01/25 History Allergies Allergy/AdvReac Type Severity Reaction Status Date / Time dihydroergotamine Allergy Unknown Hives Verified 02/01/25 08:59 haloperidol (From Haldol) Allergy Unknown Hives Verified 02/01/25 08:59 vortioxetine Allergy Unknown Hives Verified 02/01/25 08:59 buspirone Allergy Hives Verified 02/01/25 08:59 carbamazepine Allergy Unknown Verified 02/01/25 08:59 levetiracetam (From Keppra) Allergy ITCHING Verified 02/01/25 08:59 azithromycin (From Zithromax) AdvReac Intermediate Hives Verified 02/01/25 08:59 bee venom protein (honey bee) AdvReac Intermediate Hives Verified 02/01/25 08:59 metoclopramide (From Reglan) AdvReac Intermediate panic Verified 02/01/25 08:59 adhesive tape AdvReac Mild Rash Verified 02/01/25 08:59 cephalexin (From Keflex) AdvReac Mild Hives Verified 02/01/25 08:59 dextromethorphan (From AdvReac Mild Unknown Verified 02/01/25 08:59 Rincon DM) pyrilamine (From Rincon DM) AdvReac Mild Unknown Verified 02/01/25 08:59 prochlorperazine (From AdvReac Anxiety Verified 02/01/25 08:59 Compazine) propranolol AdvReac Hives Verified 02/01/25 08:59 Exam Narrative Exam Narrative: General:The patient appears well and in no apparent distress. Sitting up in the bed. Anxious during my encounter. Skin:Warm, dry, no pallor noted.There is no rash noted. Head:Normocephalic, atraumatic Eye: Normal conjunctiva, no drainage Ears, Nose, Mouth, and Throat: oral mucosa is moist. Nares patent. Cardiovascular:Regular Rate and Rhythm, no murmurs, normal S1 and S2 Respiratory:Patient is in no distress, no accessory muscle use, Good air movement present with very mild expiratory wheezes on exam Back:non-tender, no CVA tenderness bilaterally to percussion. GI: Soft and nontender, no signs of acute abdomen, no organomegaly Musculoskeletal: The patient has no evidence of calf tenderness, no pitting edema, symmetrical pulses noted bilaterally Neurological:A&O, normal speech, no focal deficits, cranial nerves are intact Constitutional Vital Signs, click to edit/add: Last Vital Signs Temp 98.3 F 02/01/25 15:21 Pulse 100 H 02/01/25 15:21 Resp 16 02/01/25 15:21 BP 129/86 02/01/25 15:21 Pulse Ox 95 02/01/25 15:21 O2 Del Method Room Air 02/01/25 15:21 O2 Flow Rate 3 02/01/25 14:03 Internal Medicine - H&P: Reslt Labs Labs: Short CBC 02/01/25 Range/Units 12:20 WBC 12.3 H (4.0-11.0) 10^3/uL Hgb 12.5 (12.0-16.0) g/dL Hct 37.9 (36.0-48.0) % Plt Count 212 (150-450) 10^3/uL BMP 02/01/25 11:22 Sodium 143 Potassium 4.5 Chloride 105 Carbon Dioxide 26.5 BUN 20.0 H Creatinine 0.68 Glucose 108 H Calcium 8.8 Assessment and Plan Assessment and Plan (1) Asthma with acute exacerbation: (2) Migraine headache: Plan Acute Asthma exacerbation Migraine headache -Observe in medical floor with telemetry, pt saturating 96% on RA, she does have an anxiety factor as well -I did reconcile her medications with the help of pharmacy -Start IV Methylprednisolone 40 mg q8hrs -Start Duonebs q4hrs -Reconciled her Dulera -Start Ketorolac 15 mg q8hrs PRN, Zofran 2 mg q8hrs PRN, and IV benadryl 12.5 mg q8hrs PRN for her migraine -DVT and GI PPx both addressed -Discussed the plan with the pt in details, she follows up with [facility] as outpatient -Full code
[2025-02-01] MEDS: SCOPOLAMINE 1 MG/3 DAYS TRANSDERM PATCH 1 PATCH TD (17:36)
[2025-02-01] MEDS: DIAZEPAM 5 MG TABLET PO (17:36)
[2025-02-01] MEDS: TOBRAMYCIN 0.3% OP SOL 100 DROP/5 ML BOTTLE OP ×2 (17:37→21:27)
[2025-02-01] MEDS: PREDNISOLONE ACETATE OP 1% SUSP 100 DROPS/5 ML 1 DROP OP ×2 (17:37→21:29)
[2025-02-01] MEDS: DIPHENHYDRAMINE HCL 50 MG/ML VIAL 25 MG IVP (18:28)
[2025-02-01] MEDS: KETOROLAC TROMETHAMINE 30 MG/ML VIAL 15 MG IVP (18:29)
[2025-02-01] MEDS: IPRATROPIUM/ALBUTEROL SULFATE 3 ML AMPUL.NEB IH ×2 (19:49→23:31)
[2025-02-01] MEDS: PANTOPRAZOLE SODIUM 40 MG VIAL IV (21:28)
[2025-02-01] MEDS: CARBAMAZEPINE 200 MG TABLET PO (21:28)
[2025-02-01] MEDS: MAGNESIUM OXIDE 400 MG TABLET PO (21:28)
[2025-02-01] MEDS: HEPARIN SODIUM (PORCINE) 5,000 UNIT/ML VIAL 5000 UNIT SUBQ (21:28)
[2025-02-01] MEDS: METHYLPREDNISOLONE SOD SUCC PF 40 MG/ML VIAL IVP (21:28)
[2025-02-01] MEDS: DESVENLAFAXINE SUCCINATE 50 MG TAB.ER.24H PO (21:28)
[2025-02-01] MEDS: BUDESONIDE 0.5 MG/2 ML AMPULE NEB IH (23:31)
[2025-02-02] MEDS: IPRATROPIUM/ALBUTEROL SULFATE 3 ML AMPUL.NEB IH ×3 (03:55→11:10)
[2025-02-02 03:57] VITALS: PULSE 98; O2SAT 95
[2025-02-02 04:00] VITALS: BP 118/71; PULSE 102; TEMP 36.6; O2SAT 93
[2025-02-02] MEDS: TOBRAMYCIN 0.3% OP SOL 100 DROP/5 ML BOTTLE OP ×2 (04:19→08:00)
[2025-02-02] MEDS: METHYLPREDNISOLONE SOD SUCC PF 40 MG/ML VIAL IVP (05:27)
[2025-02-02] MEDS: PREDNISOLONE ACETATE OP 1% SUSP 100 DROPS/5 ML 1 DROP OP (05:28)
[2025-02-02 06:42] LABS: Hematocrit 34.8 % (36.0-48.0); Hemoglobin 11.2 g/dL (12.0-16.0); Immature Granulocytes Abs Auto 0.10 10^3/uL (0.00-0.03); Immature Granulocytes Pct Auto 1.0 % (0.0-0.5); Lymphocytes Absolute Auto 1.2 10^3/uL (1.2-3.8); Mean Corpuscular HGB Conc 32.2 g/dL (29.9-35.2); Mean Corpuscular Hemoglobin 29.1 pg (26.7-34.0); Mean Corpuscular Volume 90.4 fL (81.0-99.0); Platelet Count 224 10^3/uL (150-450); Red Blood Count 3.85 10^6/uL (4.20-5.40); White Blood Count 9.8 10^3/uL (4.0-11.0)
[2025-02-02 07:13] LABS: Alanine Aminotransferase 49 U/L (14-59); Albumin Globulin Ratio 0.8; Albumin Level 3.1 g/dL (3.4-5.0); Alkaline Phosphatase 85 U/L (46-116); Anion Gap 13.6; Aspartate Amino Transferase 21 U/L (15-37); Blood Urea Nitrogen 19.0 mg/dL (7.0-18.0); Calcium 8.5 mg/dL (8.5-10.1); Carbon Dioxide 25.9 mmol/L (21.0-32.0); Chloride 105 mmol/L (98-107); Estimated GFR (African America >60 (>=60 mL/min/1.73m^2); Estimated GFR (Non-African Ame >60 (>=60 mL/min/1.73m^2); Globulin 3.7 g/dL; Glucose 156 mg/dL (74-106); Magnesium 2.0 mg/dL (1.8-2.4); Potassium 4.5 mmol/L (3.5-5.1); Sodium 140 mmol/L (136-145); Total Protein 6.8 g/dL (6.4-8.2)
[2025-02-02 07:31] VITALS: PULSE 104; O2SAT 94
[2025-02-02 08:22] VITALS: BP 135/72; PULSE 100; TEMP 36.8; O2SAT 96
[2025-02-02] MEDS: CARBAMAZEPINE 200 MG TABLET PO (09:22)
[2025-02-02] MEDS: HEPARIN SODIUM (PORCINE) 5,000 UNIT/ML VIAL 5000 UNIT SUBQ (09:22)
[2025-02-02 11:10] VITALS: PULSE 101; O2SAT 94
[2025-02-02] MEDS: BUDESONIDE 0.5 MG/2 ML AMPULE NEB IH (11:10)
[2025-02-02 11:37] VITALS: BP 111/61; PULSE 94; TEMP 36.5; O2SAT 94
--- NOTE | 2025-02-02 12:20 | PM.DS1 ---
DS: Providers Provider Date of admission: 02/01/25 14:55 Primary care physician: Corine Gold ND DS: Diagnosis Discharge Diagnosis (1) Asthma with acute exacerbation: (2) Migraine headache: DS: Summary Hospital Course Hospital Course: This is a 29-year-old woman with a long history of asthma, and a BMI of 55, who came to the emergency room at the [facility] on a Monday with an acute exacerbation of asthma. She had gotten outpatient doxycycline and oral prednisone but had not been able to get her asthma and wheezing and breathing under control with these on the outpatient basis. They monitored her in the emergency room and again her breathing did not improve so she was placed in the hospital overnight. During the hospital stay she got IV methylprednisolone 40 mg IV every 8 hours and also DuoNebs given every 4 hours. With this her breathing did improve a great deal. On the next hospital day the patient had no wheezing at all on auscultation. Her breathing was doing much better. She was eager to get out of the hospital and get home and be able to take care of her special needs children. 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 There are plans for her to get on Dupixent in the next couple weeks. She says that she has plenty of albuterol nebulizer and metered-dose inhalers at home. She says that she has plenty of prednisone to taper herself down over the next couple weeks at home. She did request a medication with codeine to help her sleep at nighttime because of the cough at nighttime and the way that corticosteroids keep her awake at nighttime so I thought that a short supply of that was reasonable. Status at Discharge Functional status at discharge: independent ambulation Overall status at discharge: patient is progressing back to baseline Time Spent with Patient Time attestation: Total time spent providing and/or coordinating discharge services: Time spent: less than 30 minutes Specific discharge activities: 14 minutes of discharge time. Exam Narrative Exam Narrative: Ambulating around room without difficulty. Subjective: No fevers or chills. No cough of purulent sputum. No chest pain. Just a general soreness in the rib cage from how hard she was wheezing yesterday. Cardiac: No murmurs to auscultation. Pulmonary: Actually her lung duarte are entirely clear to auscultation right now. I think her airflow is about 90% to her baseline. Just a tiny amount of restricted airflow when she is taking deep breaths. No crackles in any of her lung duarte. No wheezing at all. GI: Bowel sounds are normal. Skin: She has had problems with eczema on her face and eyelids and ear canals. Apparently a urgent care had her use corticosteroid eyedrops because the eczema on her eyelids was so bad. I cautioned the patient not to use corticosteroid eyedrops for very long but she seemed not to fully believe what I was trying to tell her. Hopefully her primary care can help get her on topical corticosteroids to use on the skin around her eyes if she has eczema flares but I think that she should be off the long-term corticosteroid eyedrops. Constitutional Vital Signs, click to edit/add: Last Vital Signs Temp 97.7 F 02/02/25 11:37 Pulse 94 H 02/02/25 11:37 Resp 18 02/02/25 11:37 BP 111/61 02/02/25 11:37 Pulse Ox 94 L 02/02/25 11:37 O2 Del Method Room Air 02/02/25 11:37 O2 Flow Rate 1 02/01/25 19:53 DS: Data Data Completed and Pending Labs on day of discharge: Labs from last 24 hours 02/02/25 02/01/25 06:29 12:20 WBC 9.8 12.3 H RBC 3.85 L 4.28 Hgb 11.2 L 12.5 Hct 34.8 L 37.9 MCV 90.4 88.6 MCH 29.1 29.2 MCHC 32.2 33.0 RDW 13.5 13.4 Plt Count 224 212 MPV 9.5 9.3 L Neut % (Auto) 82.5 H 86.2 H Lymph % (Auto) 11.9 L 9.1 L [place] % (Auto) 4.3 2.8 Eos % (Auto) 0.1 L 0.7 L Baso % (Auto) 0.2 0.3 Neut # (Auto) 8.1 H 10.6 H Lymph # (Auto) 1.2 1.1 L [place] # (Auto) 0.4 0.3 Eos # (Auto) 0.0 0.1 Baso # (Auto) 0.0 0.0 Abs Immat Gran (auto) 0.10 H 0.11 H Imm/Tot Granulo (auto) 1.0 H 0.9 H Sodium 140 Potassium 4.5 Chloride 105 Carbon Dioxide 25.9 Anion Gap 13.6 BUN 19.0 H Creatinine 0.66 Est GFR ( Amer) >60 Est GFR (Non-Af Amer) >60 BUN/Creatinine Ratio 28.8 Glucose 156 H Calcium 8.5 Magnesium 2.0 Total Bilirubin 0.1 L AST 21 ALT 49 Alkaline Phosphatase 85 Total Protein 6.8 Albumin 3.1 L Globulin 3.7 Albumin/Globulin Ratio 0.8 Discharge Plan Discharge Disposition: Home, Self-Care Condition: Fair Discharge Medications: New acetaminophen-codeine 300-15 mg tablet 1 tab PO BID PRN (Reason: cough) 5 Days Qty: 10 0RF Continued diazepam 10 mg tablet 5 mg PO QID PRN (Reason: seizures) epinephrine 0.3 mg/0.3 mL auto-injector 0.3 mg IM Q10M PRN (Reason: anaphylaxis) Rx Instructions: for 2 doses albuterol sulfate 90 mcg/actuation HFA aerosol inhaler 2 puff INHALATION Q4H PRN (Reason: shortness of breath or wheezing) magnesium oxide 400 mg (241.3 mg magnesium) tablet 400 mg PO .qhs zolmitriptan 5 mg spray,non-aerosol 1 spray INTRANASAL Q2H PRN (Reason: headache) Rx Instructions: May repeat once if needed after =2 hours diphenhydramine HCl [Benadryl] 25 mg capsule 75 mg PO Q6H PRN (Reason: migraine headache) promethazine 25 mg tablet 25 mg PO Q6H PRN (Reason: nausea and vomiting) Qty: 14 0RF baclofen 10 mg tablet 10 mg PO TID desvenlafaxine succinate 50 mg tablet extended release 24 hr 50 mg PO Q24H doxycycline monohydrate 100 mg capsule 100 mg PO Q12H Patient Comments: 01/31/25-02/09/25 fluocinolone acetonide oil 0.01 % drops 5 drp OTIC (EAR) BID Dulera 200-5 mcg/actuation HFA aerosol inhaler 2 inh INHALATION Q12H olanzapine 10 mg tablet 10 mg PO .qhs prednisolone acetate 1 % drops,suspension 1 drp OPHTHALMIC (EYE) Q8H Patient Comments: 01/31/25 prednisone 20 mg tablet 20 mg PO DAILY Rx Instructions: 60 MG DAILY FOR 3 DAYS, 40 MG DAILY FOR 3 DAYS, 20 MG DAILY FOR 3 DAYS THEN 10 MG DAILY FOR 3 DAYS scopolamine base 1 mg over 3 days patch 3 day 1 patch transdermal Q72H progesterone micronized 100 mg capsule 100 mg PO DAILY Spiriva Respimat 2.5 mcg/actuation mist 2 puff INHALATION QAM tobramycin 0.3 % drops 1 drp ophthalmic (eye) .Q4HWA Rx Instructions: STARTED 01/31/25 FOR 7-10 DAYS omeprazole 40 mg capsule,delayed release(DR/EC) 40 mg PO BID estradiol 1 mg tablet 1 mg PO DAILY carbamazepine 200 mg tablet 200 mg PO Q12H Print Language: Burundian Forms: Portal Instructions
--- NOTE | 2025-02-03 14:10 | CM.DCFOLLOWU ---
Person spoke with: Sandie How are you feeling? Better How is your pain? Better Did you understand your discharge instructions? Yes Do you have any questions about your discharge instructions? No Were you given any prescriptions at discharge? Yes Were you able to get your prescriptions filled? Yes Do you understand how to take your medications as ordered? Yes Do you have any questions about your follow up appointment and do you plan to keep your follow up appointment? No questions. Patient was notified of appt with Dr Gold on 02/07 at 10 am Is there anything else that you would like to discuss? No Questions/Comments/Concerns/Other:
== END 2025-02-02 12:57 | disposition home or self-care (01) ==
LOC: ER 12:37 → MS 15:05
PROVIDERS: Admitting Provider Student in an Organized Health Care Education/Training Program; Emergency Provider Emergency Medicine; PCP Student in an Organized Health Care Education/Training Program; Visit Provider Student in an Organized Health Care Education/Training Program
DX: J45.901 Unspecified asthma with (acute) exacerbation (principal); G43.909 Migraine, unspecified, not intractable, without status migrainosus; E66.01 Morbid (severe) obesity due to excess calories; Z68.43 Body mass index [BMI] 50.0-59.9, adult
CPT/HCPCS: 36415; 71045; 80048; 80053; 83735; 85025; 87040; 93005; 94640; 94761; 96372; 96374; 96375; 96376; 99285; G0378; J1200; J1644; J1885; J2405; J2919

== ENCOUNTER 2025-02-13 16:22 | Inpatient (IN) | payer OTHER, SELFPAY ==
[2025-02-13] VITALS (27 sets, daily range): BP systolic 106–145; BP diastolic 60–92; PULSE 108–126; TEMP 36.8–36.9; O2SAT 91–100; BMI 55.9
--- NOTE | 2025-02-13 16:56 | ECG_ITS ---
[facility] Test Date: 2025-02-13 Pat Name: MARGARET PLATT Department: Room: - Gender: Female [employer] Production Line: : 1995 Requested By: [id number] Order Number: [id number] Reading MD: NUVIA ESTRADA M.D. Measurements Intervals [place] Rate: 118 P: 66 AL: 138 QRS: 85 QRSD: 78 T: 61 QT: 310 QTc: 380 Interpretive Statements 1120 Sinus tachycardia Otherwise normal ECG Compared to ECG 02/01/2025 09:02:58 No significant changes Electronically Signed On 02-13-2025 21:35:41 EST by NUVIA ESTRADA M.D.
--- NOTE | 2025-02-13 16:56 | XR_ITS ---
[place] [address] Patient Name: MARGARET PLATT MRN: [id number] date: 1995 Sex: F Assigned Patient Location: ER Current Patient Location: ED.MAIN Accession/Order Number: [id number] Exam Date: 02/13/2025 17:08 Report Date: 02/13/2025 17:27 At the request of: ELMO LAU DO Procedure: XR chest 1V Plain film chest Single view HISTORY: Shortness of breath COMPARISON: 02/01/2025 FINDINGS: SUPPORT DEVICES: None POSTSURGICAL CHANGES: None HEART: Within normal limits PULMONARY CATIE: Within normal limits MEDIASTINUM: Unremarkable LUNGS AND PLEURA: No acute lung process, pleural effusion or pneumothorax identified. BONY STRUCTURES: Intact ADDITIONAL FINDINGS None XR/XR chest 1V IMPRESSION: No acute process. Impression dictated by: Kings Remy M.D. 02/13/2025 5:27 PM Dictation Location: [place] Electronically authenticated by: [id number] Y Date: 02/13/2025 17:27
[2025-02-13 17:03] LABS: Hematocrit 34.8 % (36.0-48.0); Hemoglobin 11.5 g/dL (12.0-16.0); Mean Corpuscular HGB Conc 33.0 g/dL (29.9-35.2); Mean Corpuscular Hemoglobin 29.3 pg (26.7-34.0); Mean Corpuscular Volume 88.8 fL (81.0-99.0); Platelet Count 215 10^3/uL (150-450); Red Blood Count 3.92 10^6/uL (4.20-5.40); White Blood Count 6.7 10^3/uL (4.0-11.0)
[2025-02-13] MEDS: IPRATROPIUM/ALBUTEROL SULFATE 3 ML AMPUL.NEB 9 ML IH (17:15)
[2025-02-13 17:16] LABS: Anion Gap 12.8; Blood Urea Nitrogen 16.0 mg/dL (7.0-18.0); Calcium 8.4 mg/dL (8.5-10.1); Carbon Dioxide 26.3 mmol/L (21.0-32.0); Chloride 104 mmol/L (98-107); Estimated GFR (African America >60 (>=60 mL/min/1.73m^2); Estimated GFR (Non-African Ame >60 (>=60 mL/min/1.73m^2); Glucose 163 mg/dL (74-106); Potassium 4.1 mmol/L (3.5-5.1); Sodium 139 mmol/L (136-145)
--- OUTSIDE RECORDS SUMMARY | 2025-02-13 17:16 | XMS_ITS | Encounter Summary ---
Author Organization [facility] tem Address [facility] [place]-[id number] [address] [place] [address] Care Team Providers Care Bone Glue Maker Name Role Phone Corine Gold MD Primary Care Provider [phone] Reason for Visit * ReasonOnset DateCommentsSleep Lab12/12/2024omp PSG/PAP Encounter Details DateTypeDepartmentCare Team (Latest Contact Info)Ifwoswxaovj89/23/2025Telephone [facility] - [facility] Disorders [address] [place] [address] Corine Gold MD [address] [place] [phone] Sleep Lab (Comp PSG/PAP) Social History Tobacco UseTypesPacks/DayYears UsedDateSmoking Tobacco: NeverSmokeless Tobacco: NeverAlcohol UseStandard Drinks/WeekCommentsNot Currently0 (1 standard drink = 0.6 oz pure alcohol)[facility] UtilitiesAnswerDate RecordedIn the past 12 months has the [employer], gas, oil, or water [employer] threatened to shut off services in your [...] care, and heating?Not hard at all04/08/2024PHQ-2AnswerDate RecordedTotal Vpzng442PRAPARE - TransportationAnswerDate RecordedIn the past 12 months, [...] a part of a household?No04/08/2024hildcareAnswerDate RecordedChildcareUnknown 08/01/2018EmploymentAnswerDate DqvukazaLvhjurhakvEvyyrsx87/12/2019Hunger ScreeningAnswerDate RecordedWithin the past 12 months we worried whether our food would run out before we got money to buy more.Never True01/11/2025Within the past 12 months the food we bought just didn't last and we didn't have money to get more.Never True01/11/2025Purpose - LifeAnswerDate RecordedPurpose and direction in tiveBovuqof73/12/2021CommentsNoSex and Gender Information ValueDate RecordedSex Assigned at BirthNot on fileLegal DatDzqqhc89/06/2015 11:52 AM EDTGender IdentityNot on fileSexual OrientationNot [...] 10:57 AM EDT AUTHORIZATION STARTED Pending review [facility] #[id number] Clinicals (2) attached * Telephone Encounter - Alec Rivas - 12/12/2024 10:57 AM EDT AUTHORIZATION DETAILS [id number] Valid 01/13/2025 - 05/13/2025 Auth#[id number] [place] / [employer] Portal Auth letter in MM * Telephone [...] Plan of Treatment DateTypeDepartmentCare Team (Latest Contact Info)Gsncihugljh38/30/2025 8:30 AM ESTOffice Visit [facility] [address] [place] [phone] Rajinder Cotton, [address] [place] [address], [place] [address] 03/25/2025 9:45 AM ESTOffice Visit [facility] [address] [address] Mariah Peña, [address] [address] documented as of this encounter [...] Team MemberRelationshipSpecialtyStart DateEnd Date Corine Gold MD [address] [place] [address] PCP - GeneralFamily Yxzzvetc12/22/25documented as of this encounter
--- OUTSIDE RECORDS SUMMARY | 2025-02-13 17:16 | XMS_ITS | Encounter Summary ---
Author Organization [facility] tem Address [facility]-[id number] [address] [place] [address] Care Team Providers Care Bottom Cager Name Role Phone Corine Gold MD Primary Care Provider [phone] Reason for Visit * ReasonOnset DateCommentsMed Rkymzh3402/10/2025 Encounter Details DateTypeDepartmentCare Team (Latest Contact Info)Gkpzivfohpr68/22/2025Refill [facility] [address] [place] [address] Corine Gold MD [address] [place] [address] Muscle spasm Social History Tobacco UseTypesPacks/DayYears UsedDateSmoking Tobacco: NeverSmokeless Tobacco: NeverAlcohol UseStandard Drinks/WeekCommentsNot Currently0 (1 standard drink = 0.6 oz pure alcohol)[facility] UtilitiesAnswerDate RecordedIn the past 12 months has the [employer], [employer], oil, or water [employer] threatened to shut off services in your [...] care, and heating?Not hard at all04/08/2024PHQ-2AnswerDate RecordedTotal Hprbv917PRAPARE - TransportationAnswerDate RecordedIn the past 12 months, [...] a part of a household?No04/08/2024hildcareAnswerDate RecordedChildcareUnknown 08/01/2018EmploymentAnswerDate LdfabjuyYyquachgshJsjvrcm86/12/2019Hunger ScreeningAnswerDate RecordedWithin the past 12 months we worried whether our food would run out before we got money to buy more.Never True01/11/2025Within the past 12 months the food we bought just didn't last and we didn't have money to get more.Never True01/11/2025Purpose - LifeAnswerDate RecordedPurpose and direction in iouiBjsasux03/12/2021CommentsNoSex and Gender Information ValueDate RecordedSex Assigned at BirthNot on fileLegal TwoTxxdgc20/06/2015 11:52 AM EDTGender IdentityNot on fileSexual OrientationNot on filedocumented as of this encounter Plan of Treatment DateTypeDepartmentCare Team (Latest Contact Info)Zopemhptnsm29/30/2025 8:30 AM ESTOffice Visit [facility] [address] [place] [address] [place] [address] Rajinder Cotton, [address] [place] [address], [address], [place] [address] 03/25/2025 9:45 AM ESTOffice Visit [facility] [address] [place] [phone] Mariah Peña, DO [address] [phone] documented as of this encounter Goals GoalPatient Goal TypeAssociated ProblemsRecent ProgressPatient-Stated?Author home Tamiko Thompson RN Note: Evaluation of progress towards goal: Patient stated goal is to return home with [facility] for assistance with wound care documented as of this encounter Visit Diagnoses Diagnosis Muscle spasm Spasm of muscle documented in this encounter Additional Health Concerns AssessmentNoted TimePHQ-9 Depression Total Score: 10:01 AM EDTA Body Mass Index follow-up plan has been documented for the uizbqxw9412/20/2024 1:20 PM EDTdocumented as of this encounter Care Teams Team MemberRelationshipSpecialtyStart DateEnd Date Corine Gold MD [address] [facility] [place] [place] [address] PCP - GeneralFamily Uxuxnzmj78/22/25documented as of this encounter
--- OUTSIDE RECORDS SUMMARY | 2025-02-13 17:16 | XMS_ITS | Encounter Summary ---
Author [facility] Address [id number] [address] [place] [address] Care Team Providers Care Magnetic Testing Technician Name Role Phone Corine Gold MD Primary Care Provider [phone] Encounter Details DateTypeDepartmentCare Team (Latest Contact Info)Lnyghwxfcwo03/22/2025Refill [facility] [address] [address] Mariah Peña DO [address] [address] Moderate asthma with acute exacerbation, unspecified whether persistent; Gastroesophageal reflux disease without esophagitis; Moderate persistent asthma without complication; Moderate persistent asthma, unspecified whether complicated Social History Tobacco UseTypesPacks/DayYears UsedDateSmoking Tobacco: NeverSmokeless Tobacco: NeverAlcohol UseStandard Drinks/WeekCommentsNot Currently0 (1 standard drink = 0.6 oz pure alcohol)[facility] UtilitiesAnswerDate RecordedIn the past 12 months has the [employer], gas, oil, or water [employer] threatened to shut off services in your [...] care, and heating?Not hard at all04/08/2024PHQ-2AnswerDate RecordedTotal Omekh305PRAPARE - TransportationAnswerDate RecordedIn the past 12 months, [...] a part of a household?No04/08/2024hildcareAnswerDate RecordedChildcareUnknown 08/01/2018EmploymentAnswerDate QbdvorfxDuskvxnwtpJrwtwys32/12/2019Hunger ScreeningAnswerDate RecordedWithin the past 12 months we worried whether our food would run out before we got money to buy more.Never True01/11/2025Within the past 12 months the food we bought just didn't last and we didn't have money to get more.Never True01/11/2025Purpose - LifeAnswerDate RecordedPurpose and direction in dcaeMsdqinj77/12/2021CommentsNoSex and Gender Information ValueDate RecordedSex Assigned at BirthNot on fileLegal JfvNsxtgq68/06/2015 11:52 AM EDTGender IdentityNot on fileSexual OrientationNot on filedocumented as of this encounter Plan of Treatment DateTypeDepartmentCare Team (Latest Contact Info)Ydttqwpkarl59/30/2025 8:30 AM ESTOffice Visit [facility] [address] [place] [address] [place] [address] Rajinder Cotton, DO 605 [facility], [address], [place] [address] 03/25/2025 9:45 AM ESTOffice Visit [facility] [address] [phone] Mariah Peña, [address] [address] documented as of this encounter Goals GoalPatient Goal TypeAssociated ProblemsRecent ProgressPatient-Stated?Author home Tamiko Thompson RN Note: Evaluation of progress towards goal: Patient stated goal is to return home with [facility] for assistance with wound care documented as of this encounter Visit Diagnoses Diagnosis Moderate asthma with acute exacerbation, unspecified whether persistent Gastroesophageal reflux disease without esophagitis Esophageal reflux Moderate persistent asthma without complication Moderate persistent asthma, unspecified whether complicated documented in this encounter Additional Health Concerns AssessmentNoted TimePHQ-9 Depression Total Score: 10:01 AM EDTA Body Mass Index follow-up plan has been documented for the uopmfmu2312/20/2024 1:20 PM EDTdocumented as of this encounter Care Teams Team MemberRelationshipSpecialtyStart DateEnd Date Corine Gold MD [address] [place] [address] PCP - GeneralFamily Iwthukas35/22/25documented as of this encounter
--- OUTSIDE RECORDS SUMMARY | 2025-02-13 17:16 | XMS_ITS | Encounter Summary ---
Author Organization [facility] tem Address [facility][id number] [address] [place] [address] Care Team Providers Care Industrial Gas Fitter Helper Name Role Phone Corine Gold MD Primary Care Provider [phone] Encounter Details DateTypeDepartmentCare Team (Latest Contact Info)Zskcltwsqyb22/23/2025Telephone [facility] [address] [address] Malia Mason RN Social History Tobacco UseTypesPacks/DayYears UsedDateSmoking Tobacco: NeverSmokeless Tobacco: NeverAlcohol UseStandard Drinks/WeekCommentsNot Currently0 (1 standard drink = 0.6 oz pure alcohol)[facility] UtilitiesAnswerDate RecordedIn the past 12 months has the electric, gas, oil, or water [employer] threatened to shut off services in your [...] care, and heating?Not hard at all04/08/2024PHQ-2AnswerDate RecordedTotal Vlkge147PRAPARE - TransportationAnswerDate RecordedIn the past 12 months, [...] a part of a household?No5ChildcareAnswerDate RecordedChildcareUnknown 08/01/2018EmploymentAnswerDate JosschnlAglqjwwemhZnyqpze06/12/2019Hunger ScreeningAnswerDate RecordedWithin the past 12 months we worried whether our food would run out before we got money to buy more.Never True01/11/2025Within the past 12 months the food we bought just didn't last and we didn't have money to get more.Never True01/11/2025Purpose - LifeAnswerDate RecordedPurpose and direction in rhwtHxcfkpz49/12/2021CommentsNoSex and Gender Information ValueDate RecordedSex Assigned at BirthNot on fileLegal BcjJmtzia89/06/2015 11:52 AM EDTGender IdentityNot on fileSexual OrientationNot on filedocumented as of this encounter Miscellaneous Notes * Telephone Encounter - Malia Mason RN - 02/11/2025 8:11 AM EST Images from the original note were not included. Glove Boarder spoke to patient and informed per Dr Peña's office note on 12-17-24, patient was referred to GI for uncontrolled reflux which is contributing to her asthma. Patient reports she did not contact GI. Glove Boarder encouraged patient to contact GI and schedule an appt. Instructions and phone number provideed. Will fill script until appt with Dr Peña on 03-25-25. Hopefully patient obtains an appt before then. Patient agreeable documented in this encounter Plan of Treatment DateTypeDepartmentCare Team (Latest Contact Info)Ulrmvlwbrhg24/ 8:30 AM ESTOffice Visit [facility] [address] [place] [phone] Rajinder Cotton, DO 605 [facility], [address], [address] [place], [place] [phone] 03/25/2025 9:45 AM ESTOffice Visit [facility] [address] [phone] Mariah Peña, DO [address] [phone] documented as of this encounter Goals GoalPatient Goal TypeAssociated ProblemsRecent ProgressPatient-Stated?Author home Tamiko Thompson RN Note: Evaluation of progress towards goal: Patient stated goal is to return home with [facility] for assistance with wound care documented as of this encounter Visit Diagnoses Not on filedocumented in this encounter Additional Health Concerns AssessmentNoted TimePHQ-9 Depression Total Score: 10:01 AM EDTA Body Mass Index follow-up plan has been documented for the qzuvmpl0212/20/2024 1:20 PM EDTdocumented as of this encounter Care Teams Team MemberRelationshipSpecialtyStart DateEnd Date Corine Gold MD [address] [facility] [place] [address] PCP - GeneralFamily Etqhdqiz93/22/25documented as of this encounter
--- OUTSIDE RECORDS SUMMARY | 2025-02-13 17:16 | XMS_ITS | Encounter Summary ---
Author [facility] Address [facility][id number] [address] [place] [address] Care Team Providers Care Web Search Evaluator Name Role Phone Corine Gold MD Primary Care Provider Encounter Details DateTypeDepartmentCare Team (Latest Contact Info)Xruqoaeramk58/22/2025Refill [facility] [address] [phone] Mariah Peña DO [address] [address] Moderate asthma with acute exacerbation, unspecified whether persistent; Gastroesophageal reflux disease without esophagitis; Moderate persistent asthma without complication; Moderate persistent asthma, unspecified whether complicated Social History Tobacco UseTypesPacks/DayYears UsedDateSmoking Tobacco: NeverSmokeless Tobacco: NeverAlcohol UseStandard Drinks/WeekCommentsNot Currently0 (1 standard drink = 0.6 oz pure alcohol)[facility] UtilitiesAnswerDate RecordedIn the past 12 months has the [employer], gas, oil, or water [employer] threatened to shut off services in your [...] care, and heating?Not hard at all04/08/2024PHQ-2AnswerDate RecordedTotal Kghta599PRAPARE - TransportationAnswerDate RecordedIn the past 12 months, [...] a part of a household?No04/08/2024hildcareAnswerDate RecordedChildcareUnknown 08/01/2018EmploymentAnswerDate KxqnuovmBgkghnuopdPwpbnku54/12/2019Hunger ScreeningAnswerDate RecordedWithin the past 12 months we worried whether our food would run out before we got money to buy more.Never True01/11/2025Within the past 12 months the food we bought just didn't last and we didn't have money to get more.Never True01/11/2025Purpose - LifeAnswerDate RecordedPurpose and direction in amffAavplhh86/12/2021CommentsNoSex and Gender Information ValueDate RecordedSex Assigned at BirthNot on fileLegal WvhPsrhlx88/06/2015 11:52 AM EDTGender IdentityNot on fileSexual OrientationNot on filedocumented as of this encounter Plan of Treatment DateTypeDepartmentCare Team (Latest Contact Info)Lqnuetgwfyl40/30/2025 8:30 AM ESTOffice Visit [facility] [address] [place] [address] [place] [address] Rajinder Cotton, DO 605 [facility], [address], [place] [address] 03/25/2025 9:45 AM ESTOffice Visit [facility] [address] [phone] Mariah Peña, [address] [address] documented as of this encounter Goals GoalPatient Goal TypeAssociated ProblemsRecent ProgressPatient-Stated?Author home Tamiko Thompson RN Note: Evaluation of progress towards goal: Patient stated goal is to return home with [facility] for assistance with wound care [...] follow-up plan has been documented for the pqsevht5012/20/2024 1:20 PM EDTdocumented as of this encounter Care Teams Team MemberRelationshipSpecialtyStart DateEnd Date Corine Gold MD [address] [place] [address] PCP - GeneralFamily Lifcsqmk51/22/25documented as of this encounter
--- OUTSIDE RECORDS SUMMARY | 2025-02-13 17:16 | XMS_ITS | Encounter Summary ---
Author Organization [facility] Sys tem Address [facility]-[id number] [address] [place] [address] Care Team Providers Care Engineering Group Manager Name Role Phone Corine Gold MD Primary Care Provider [phone] Encounter Details DateTypeDepartmentCare Team (Latest Contact Info)Qonxfbqyiju85/22/2025[facility]ill [facility] [address] [place] [address] [place] [address] Saba Carter N, POLE SHAVER HELPER-HERBOLOGIST [address] [place] [address] Moderate persistent asthma without complication; Seasonal allergic rhinitis, unspecified trigger; Watery eyes Social History Tobacco UseTypesPacks/DayYears UsedDateSmoking Tobacco: NeverSmokeless Tobacco: NeverAlcohol UseStandard Drinks/WeekCommentsNot Currently0 (1 standard drink = 0.6 oz pure alcohol)[facility] UtilitiesAnswerDate RecordedIn the past 12 months has the [employer], [employer], oil, or water [employer] threatened to shut off services in your [...] care, and heating?Not hard at all04/08/2024PHQ-2AnswerDate RecordedTotal Ayawp416PRAPARE - TransportationAnswerDate RecordedIn the past 12 months, [...] a part of a household?No04/08/2024hildcareAnswerDate RecordedChildcareUnknown 08/01/2018EmploymentAnswerDate IwrbtxvuFstodkelpjTtugbsh19/12/2019Hunger ScreeningAnswerDate RecordedWithin the past 12 months we worried whether our food would run out before we got money to buy more.Never True01/11/2025Within the past 12 months the food we bought just didn't last and we didn't have money to get more.Never True01/11/2025Purpose - LifeAnswerDate RecordedPurpose and direction in eqncAdltayr16/12/2021CommentsNoSex and Gender Information ValueDate RecordedSex Assigned at BirthNot on fileLegal ZxkOvcdnc24/06/2015 11:52 AM EDTGender IdentityNot on fileSexual OrientationNot on filedocumented as of this encounter Plan of Treatment DateTypeDepartmentCare Team (Latest Contact Info)Lkytrjhexts55/30/2025 8:30 AM ESTOffice Visit [facility] [address] [place] [address] [place] [address] Rajinder Cotton, [address] [place] [address], [address] [place] [address] 03/25/2025 9:45 AM ESTOffice Visit [facility] [address] [place] [phone] Mariah Peña, DO [address] [address] documented as of this encounter Goals GoalPatient Goal TypeAssociated ProblemsRecent ProgressPatient-Stated?Author home Tamiko Thompson RN Note: Evaluation of progress towards goal: Patient stated goal is to return home with [facility] for assistance with wound care documented as of this encounter Visit Diagnoses Diagnosis Moderate persistent asthma without complication Seasonal allergic rhinitis, unspecified trigger Watery eyes Epiphora, unspecified as to cause documented in this encounter Additional Health Concerns AssessmentNoted TimePHQ-9 Depression Total Score: 10:01 AM EDTA Body Mass Index follow-up plan has been documented for the hpklils3312/20/2024 1:20 PM EDTdocumented as of this encounter Care Teams Team MemberRelationshipSpecialtyStart DateEnd Date Corine Gold MD [address] [place] [address] PCP - GeneralFamily Pcgopoej82/22/25documented as of this encounter
--- OUTSIDE RECORDS SUMMARY | 2025-02-13 17:16 | XMS_ITS | Encounter Summary ---
Author Organization [facility] Sys tem Address [facility][id number] [address] [place] [address] Care Team Providers Care Oyster Opener Name Role Phone Corine Gold MD Primary Care Provider [phone] Encounter Details DateTypeDepartmentCare Team (Latest Contact Info)Xseagykzghw10/22/2025Refill [facility] [address] [place] [address] [place] [address] Halima Johns, CURTAIN MENDER-BICYCLE ASSEMBLER 605 [facility] [address] [place] [address] Eye infection, bilateral Social History Tobacco UseTypesPacks/DayYears UsedDateSmoking Tobacco: NeverSmokeless Tobacco: NeverAlcohol UseStandard Drinks/WeekCommentsNot Currently0 (1 standard drink = 0.6 oz pure alcohol)Replaced by [facility] UtilitiesAnswerDate RecordedIn the past 12 months has the [employer], gas, oil, or water [employer] threatened to shut off services in your [...] care, and heating?Not hard at all04/08/2024PHQ-2AnswerDate RecordedTotal Zqffb988PRAPARE - TransportationAnswerDate RecordedIn the past 12 months, [...] a part of a household?No04/08/2024hildcareAnswerDate RecordedChildcareUnknown 08/01/2018EmploymentAnswerDate BhkuikvaDvvcczijjyUxfothv03/12/2019Hunger ScreeningAnswerDate RecordedWithin the past 12 months we worried whether our food would run out before we got money to buy more.Never True01/11/2025Within the past 12 months the food we bought just didn't last and we didn't have money to get more.Never True01/11/2025Purpose - LifeAnswerDate RecordedPurpose and direction in xmqgFisdvkl41/12/2021CommentsNoSex and Gender Information ValueDate RecordedSex Assigned at BirthNot on fileLegal WmjPcmqgp48/06/2015 11:52 AM EDTGender IdentityNot on fileSexual OrientationNot on filedocumented as of this encounter Plan of Treatment DateTypeDepartmentCare Team (Latest Contact Info)Osndtnlncty76/30/2025 8:30 AM ESTOffice Visit [facility] [address] [place] [address] [place] [address] Rajinder Cotton, [address] [place] [address], [address], [place] [address] 03/25/2025 9:45 AM ESTOffice Visit [facility] [address] [place] [phone] Mariah Peña, DO [address] [address] documented as of this encounter Goals GoalPatient Goal TypeAssociated ProblemsRecent ProgressPatient-Stated?Author home Tamiko Thompson RN Note: Evaluation of progress towards goal: Patient stated goal is to return home with [facility] for assistance with wound care documented as of this encounter Visit Diagnoses Diagnosis Eye infection, bilateral documented in this encounter Additional Health Concerns AssessmentNoted TimePHQ-9 Depression Total Score: 10:01 AM EDTA Body Mass Index follow-up plan has been documented for the vvlgcbs2112/20/2024 1:20 PM EDTdocumented as of this encounter Care Teams Team MemberRelationshipSpecialtyStart DateEnd Date Corine Gold MD [address] [place] [address] PCP - GeneralFamily Pqzpoltu24/22/25documented as of this encounter
--- OUTSIDE RECORDS SUMMARY | 2025-02-13 17:16 | XMS_ITS | Encounter Summary ---
Author Organization [facility] tem Address [facility]-[id number] [address] [place] [address] Care Team Providers Care Furnace Brazer Name Role Phone Corine Gold MD Primary Care Provider [phone] Encounter Details DateTypeDepartmentCare Team (Latest Contact Info)Mxdjyjrxbzt60/22/2025Refill [facility] Gynecology Oncology, A Department of [facility] [address] [place] [address] Svetlana Ye PA [address] [place] [address] Post-op pain; Post-operative pain; Menopausal symptoms Social History Tobacco UseTypesPacks/DayYears UsedDateSmoking Tobacco: NeverSmokeless Tobacco: NeverAlcohol UseStandard Drinks/WeekCommentsNot Currently0 (1 standard drink = 0.6 oz pure alcohol)[facility] UtilitiesAnswerDate RecordedIn the past 12 months has the [employer], oil, or water [employer] threatened to shut off services in your [...] care, and heating?Not hard at all04/08/2024PHQ-2AnswerDate RecordedTotal Tdpzf109PRAPARE - TransportationAnswerDate RecordedIn the past 12 months, [...] a part of a household?No04/08/2024hildcareAnswerDate RecordedChildcareUnknown 08/01/2018EmploymentAnswerDate WtzhdzneLzeafsjbxiAanrxkt53/12/2019Hunger ScreeningAnswerDate RecordedWithin the past 12 months we worried whether our food would run out before we got money to buy more.Never True01/11/2025Within the past 12 months the food we bought just didn't last and we didn't have money to get more.Never True01/11/2025Purpose - LifeAnswerDate RecordedPurpose and direction in ociwOgdjrfh98/12/2021CommentsNoSex and Gender Information ValueDate RecordedSex Assigned at BirthNot on fileLegal ZnsZwtesw90/06/2015 11:52 AM EDTGender IdentityNot on fileSexual OrientationNot on filedocumented as of this encounter Plan of Treatment DateTypeDepartmentCare Team (Latest Contact Info)Simhbhivaxd49/30/2025 8:30 AM ESTOffice Visit [facility] [address] [place] [address] [place] [address] Rajinder Cotton, [address] [place] [address], [address], [place] [address] 03/25/2025 9:45 AM ESTOffice Visit [facility] [address] [place] [address] Mariah Peña, DO [address] [address] documented as of this encounter Goals GoalPatient Goal TypeAssociated ProblemsRecent ProgressPatient-Stated?Author home Tamiko Thompson RN Note: Evaluation of progress towards goal: Patient stated goal is to return home with [facility] for assistance with wound care documented as of this encounter Visit Diagnoses Diagnosis Post-op pain Other acute postoperative pain Post-operative pain Other acute postoperative pain Menopausal symptoms Symptomatic menopausal or female climacteric states documented in this encounter Additional Health Concerns AssessmentNoted TimePHQ-9 Depression Total Score: 10:01 AM EDTA Body Mass Index follow-up plan has been documented for the cggxmmh5712/20/2024 1:20 PM EDTdocumented as of this encounter Care Teams Team MemberRelationshipSpecialtyStart DateEnd Date Corine Gold MD [address] [facility] [place] [place] [address] PCP - GeneralFamily Qyoevhtk04/22/25documented as of this encounter
--- OUTSIDE RECORDS SUMMARY | 2025-02-13 17:16 | XMS_ITS | Encounter Summary ---
Author Organization [facility] tem Address [facility]-[id number] [address] [place] [address] Care Team Providers Care Wholesaler Name Role Phone Corine Gold MD Primary Care Provider [phone] Encounter Details DateTypeDepartmentCare Team (Latest Contact Info)Ubrzeuoqbak06/22/2025[facility]ill [facility] [address] [place] [address] [place] [address] Saba Carter N, SOIL EXPERT-LEACH RUNNER [address] [place] [address] Moderate persistent asthma without complication; Seasonal allergic rhinitis, unspecified trigger; Watery eyes Social History Tobacco UseTypesPacks/DayYears UsedDateSmoking Tobacco: NeverSmokeless Tobacco: NeverAlcohol UseStandard Drinks/WeekCommentsNot Currently0 (1 standard drink = 0.6 oz pure alcohol)[facility] UtilitiesAnswerDate RecordedIn the past 12 months has the [employer], [employer], oil, or water [employer] ([employer] by [employer] in 2014) threatened to shut off services in your [...] care, and heating?Not hard at all04/08/2024PHQ-2AnswerDate RecordedTotal Tgtkz224PRAPARE - TransportationAnswerDate RecordedIn the past 12 months, [...] a part of a household?No04/08/2024hildcareAnswerDate RecordedChildcareUnknown 08/01/2018EmploymentAnswerDate QvkettdqCgjthiqnejOleskbc01/12/2019Hunger ScreeningAnswerDate RecordedWithin the past 12 months we worried whether our food would run out before we got money to buy more.Never True01/11/2025Within the past 12 months the food we bought just didn't last and we didn't have money to get more.Never True01/11/2025Purpose - LifeAnswerDate RecordedPurpose and direction in gdroTvmqehv97/12/2021CommentsNoSex and Gender Information ValueDate RecordedSex Assigned at BirthNot on fileLegal XkoGomuju45/06/2015 11:52 AM EDTGender IdentityNot on fileSexual OrientationNot on filedocumented as of this encounter Plan of Treatment DateTypeDepartmentCare Team (Latest Contact Info)Cdgtupfcnhh11/30/2025 8:30 AM ESTOffice Visit [facility] [address] [place] [address] [place] [address] Rajinder Cotton, [address] [place] [address], [address], [place] [address] 03/25/2025 9:45 AM ESTOffice Visit [facility] [address] [place] [phone] Mariah Peña, DO [address] [address] documented as of this encounter Goals GoalPatient Goal TypeAssociated ProblemsRecent ProgressPatient-Stated?Author home Tamiko Thompson RN Note: Evaluation of progress towards goal: Patient stated goal is to return home with [facility] for assistance with wound care documented as of this encounter Visit Diagnoses Diagnosis Moderate persistent asthma without complication Seasonal allergic rhinitis, unspecified trigger Watery eyes Epiphora, unspecified as to cause documented in this encounter Additional Health Concerns AssessmentNoted TimePHQ-9 Depression Total Score: 10:01 AM EDTA Body Mass Index follow-up plan has been documented for the utjeids9712/20/2024 1:20 PM EDTdocumented as of this encounter Care Teams Team MemberRelationshipSpecialtyStart DateEnd Date Corine Gold MD [address] [place] [address] PCP - GeneralFamily Jztshwql16/22/25documented as of this encounter
--- OUTSIDE RECORDS SUMMARY | 2025-02-13 17:16 | XMS_ITS | Encounter Summary ---
Author Organization [facility] tem Address [facility]-[id number] [address] [place] [address] Care Team Providers Care Enrobing Machine Feeder Name Role Phone Corine Gold MD Primary Care Provider [phone] Encounter Details DateTypeDepartmentCare Team (Latest Contact Info)Zaebnpaqmde56/22/2025Refill [facility] [address] [place] [address] Corine Gold MD [address] [place] [address] Seasonal allergic rhinitis, unspecified trigger; Muscle spasm Social History Tobacco UseTypesPacks/DayYears UsedDateSmoking Tobacco: NeverSmokeless Tobacco: NeverAlcohol UseStandard Drinks/WeekCommentsNot Currently0 (1 standard drink = 0.6 oz pure alcohol)[facility] UtilitiesAnswerDate RecordedIn the past 12 months has the [employer], gas, oil, or water [employer] threatened to shut off services in your [...] care, and heating?Not hard at all04/08/2024PHQ-2AnswerDate RecordedTotal Akvax052PRAPARE - TransportationAnswerDate RecordedIn the past 12 months, [...] a part of a household?No04/08/2024hildcareAnswerDate RecordedChildcareUnknown 08/01/2018EmploymentAnswerDate BrnylasyFakwbdxkriUpxbwtj04/12/2019Hunger ScreeningAnswerDate RecordedWithin the past 12 months we worried whether our food would run out before we got money to buy more.Never True01/11/2025Within the past 12 months the food we bought just didn't last and we didn't have money to get more.Never True01/11/2025Purpose - LifeAnswerDate RecordedPurpose and direction in kvgfDidywol48/12/2021CommentsNoSex and Gender Information ValueDate RecordedSex Assigned at BirthNot on fileLegal HysFnshjx20/06/2015 11:52 AM EDTGender IdentityNot on fileSexual OrientationNot on filedocumented as of this encounter Plan of Treatment DateTypeDepartmentCare Team (Latest Contact Info)Nuysypubibi28/30/2025 8:30 AM ESTOffice Visit [facility] [address] [place] [address] [place] [address] Rajinder Cotton, DO [address] [facility], [address] [place] [address] 03/25/2025 9:45 AM ESTOffice Visit [facility] [address] [address] Mariah Peña, DO [address] [address] documented as of this encounter Goals GoalPatient Goal TypeAssociated ProblemsRecent ProgressPatient-Stated?Author home Tamiko Thompson RN Note: Evaluation of progress towards goal: Patient stated goal is to return home with [facility] for assistance with wound care documented as of this encounter Visit Diagnoses Diagnosis Seasonal allergic rhinitis, unspecified trigger Muscle spasm Spasm of muscle documented in this encounter Additional Health Concerns AssessmentNoted TimePHQ-9 Depression Total Score: 10:01 AM EDTA Body Mass Index follow-up plan has been documented for the vfzsrue3312/20/2024 1:20 PM EDTdocumented as of this encounter Care Teams Team MemberRelationshipSpecialtyStart DateEnd Date Corine Gold MD [address] [place] [address] PCP - GeneralFamily Inmwkvqg57/22/25documented as of this encounter
--- OUTSIDE RECORDS SUMMARY | 2025-02-13 17:16 | XMS_ITS | Patient Health Record ---
Author Organization [facility] [place] Address [address] [place] [address] Care Team Providers Care Pulp Grinder Name Role Phone Lamont Blari MD Primary Care Provider Romeo bradley CasieHeraclio Unavailable [phone] Allergies Allergen (clinical drug ingredient) Drug/Non Drug [...] Oral; Duration: 30 DaysActiveCaplyta 10.5 MGas directed Ytyzmf0104/19/2023ctive Ketorolac Tromethamine 10 MGtake 1 tablet by [...] Route Administration Date Status Comme nts Flu, (44872) -historic- 3-va lent, Split, Prsrvtve Free, 6-35 [...] W/U Status Risk Notes Problem Plantar wart (38448320) Plantar wart (B07 .0) ActiveconfirmedProblemChronic intractable migraine without aura (958268221835606)Chronic migraine without aura, intractable, with status migrainosus (G43.711)ActiveconfirmedProblemUncomplicated severe persistent asthma (124803811)Severe persistent asthma, uncomplicated (J45.50)Active confirmedProblemContracture of joint of left ankle (disorder) (004260533504513) Contracture, 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)ActiveconfirmedProblemLong-term current use of inhaled steroid (575747345)FDC (current) use of inhaled steroids (Z79.51) ActiveconfirmedProblemMorbid obesity (753644848)Morbid obesity (E66.01)Active confirmedProblemBipolar disorder (02125189)Bipolar disorder (F31.9)Active confirmedProblemReactive airway disease (850222807314)Reactive airway disease (J45.909)ActiveconfirmedProblemIntractable migraine (504456733)Intractable migraine (G43.919)ActiveconfirmedProblemTobacco use (247047966)Vapes nicotine containing substance (Z72.0)ActiveconfirmedProblemBody mass index 40+ - severely obese (980594062)Body mass index [BMI] 45.0-49.9, adult (Z68.42)Activeconfirmed ProblemPeripheral eosinophilia (D72.19)Activeconfirmed Encounters Encounter Location Date Provider Diagnosis Pulmonary Medicine [address] [address] 03/19/2024 Heraclio Jason Plan Of Treatment No Information Insurance Providers Payer Name Payer Address Payer Phone Subscriber Number Group Number Insured Name Patient Relationship to Insured Coverage Start Date Coverage End Date [employer] [employer] [address] [place] [address] [id number] Adam Nicholsonelf - patient is the [id number] 2022 Medical (General) History Medical History History ICD Code asthma migraine headachesseizuresLeft foot painM79.672Severe persistent asthma, uncomplicatedPeripheral eosinophiliaVapes nicotine containing substanceLong term (current) use of inhaled steroidsMorbid obesityPseudoseizuresPCOS (polycystic ovarian syndrome)OMID (generalized anxiety disorder)Bipolar disorder, mixed Surgical History Surgery Date(Month/Year) diagnostic laparoscopy cholecystectomycesarean sectiontubal ligationhysterectomyappendectomy hysterectomy, total with bilateral salpingo-oophorectomy (BSO)diagnostic lap tubal ligationc-section v2bzrlllwlffqcwfuumjw repairHospitalization History Reason Date(Month/Year) Acute Exacerbation of Asthma-[facility] 023 Acute Exacerbation of Asthma-[facility] 024
--- OUTSIDE RECORDS SUMMARY | 2025-02-13 17:16 | XMS_ITS | Clinical Summary ---
Author Organization [facility] Address [address] [place] [address] Care Team Providers Care Explosive Ordnance Disposal Technician Name Role Phone Abdifatah Brady (Historical) Primary Care Provide r Unavailable Allergies Active AllergyReactionsCriticalityNoted DateCommentsAdhesive Tape-SiliconesRash 12/03/2021zithromycinOther: See Riddrybu85/14/2022ihydroergotamineIntolerance Ruqzjy4107/27/2022 Chest tightness, numbness and tingling in bilateral extremities, increased anxiety GfddvdlpitLmjx95/14/0324IobjqdjdwbcpwFnecczs99/22/2023rochlorperazine TqgjwnpykpzRmc88/08/2024ropranololHives,Other: See Ixtmtllc47/31/2021 Migrianes Pyrilamine-KlgyairycirttnuoFpsjm16/18/6156CockurfrxawuuvVzkpsvkzkqc34/14/2022 TfwtlmbpfhkvNtsnn56/17/2022 Medications MedicationSigDispense QuantityRefillsLast FilledStart DateEnd DateStatus diazePAM (VALIUM) 10 mg tablet 11/23/2021ctive albuterol sulfate 90 mcg/actuation breath activated powder inhaler Inhale 2 Puffs as instructed every 6 hours as needed for wheezing/shortness of breath.08/16/2023ctive zavegepant (ZAVZPRET) 10 mg/actuation nasal spray Indications:Intractable chronic migraine without aura and with status migrainosusUse one nasal spray at migraine onset. May use once per 24 hours. 6 each 8:59 AM EDT5Active carBAMazepine XR (TEGRETOL XR) 100 mg 12 hr tablet Take 100 mg by mouth two times a day.5Active desvenlafaxine ER (PRISTIQ) 50 mg 24 hr tablet Take 50 mg by mouth once daily.5Active estradiol (ESTRACE) 1 mg tablet Take 1 mg by mouth every morning.Active progesterone micronized (PROMETRIUM) 100 mg capsule Take 100 mg by mouth once daily.6Active chlorzoxazone (PARAFON FORTE DSC) 500 mg tablet TAKE 1 TABLET BY MOUTH TWICE DAILY NEEDED 20 tablet 5Active baclofen 10 mg tablet Take 10 mg by mouth three times a day.Active divalproex ER (DEPAKOTE ER) 500 mg 24 hr tablet Take 2 tablets by mouth once daily for 5 days, THEN 1 tablet once daily for 5 days. 15 tablet 5Active magnesium oxide 400 mg magnesium cap Take 1 capsule by mouth daily at bedtime. 90 capsule 5Active promethazine (PHENERGAN) 25 mg tablet Indications:Intractable chronic migraine without aura and without status migrainosusTake 1 tablet by mouth every 4 hours as needed. FOR NAUSEA 90 tablet 5Active scopolamine (TRANSDERM-SCOP) patch 1.5 mg/72 hr (delivers 1 mg over 3 days) Indications:Intractable chronic migraine without aura and with status migrainosus,NauseaApply 1 patch as directed every 72 hours. 4 patch 5Active ZOLMitriptan (ZOMIG) 5 mg nasal spray Indications:Chronic migraine without aura, with intractable migraine, so stated, with status migrainosusUse 1 Draper in the nose as needed at onset of migraine headache. If symptoms persist or return, mayrepeat dose in other nostril after 2 hours. Maximum of 2 sprays per 24 hours 12 each 5Active keTORolac (TORADOL) 10 mg tablet TAKE 1 TABLET BY MOUTH EVERY 6 HOURS NEEDED 20 tablet 5Active magnesium oxide 400 mg magnesium cap Take 1 capsule by mouth daily at bedtime. 90 capsule Discontinued promethazine (PHENERGAN) 25 mg tablet Indications:Intractable chronic migraine without aura and without status migrainosusTake 1 tablet by mouth every 4 hours as needed. FOR NAUSEA 90 tablet Discontinued keTORolac (TORADOL) 10 mg tablet Take 1 tablet by mouth every 6 hours as needed (severe migraine). 20 tablet /Discontinued ZOLMitriptan (ZOMIG) 5 mg nasal spray Use 1 Draper in the nose as needed at onset of migraine headache. If symptoms persist or return, mayrepeat dose in other nostril after 2 hours. Maximum of 2 sprays per 24 hours 12 each Discontinued scopolamine (TRANSDERM-SCOP) patch 1.5 mg/72 hr (delivers 1 mg over 3 days) Indications:Intractable chronic migraine without aura and with status migrainosus,Nauseaapply 1 patch behind the EAR at least FOUR HOURS prior to exposure and every 3 (THREE) days NEEDED 4 patch Discontinued Active Problems ProblemNoted DateDiagnosed DateIntractable chronic migraine without aura and without status fujdtqmncsq20/30/2024hronic migraine without aura, with intractable migraine, so stated, with status wacvwiowlor37/31/2024Intractable chronic migraine without aura and with status capqwncskek60/05/2023Seizure-like vjjcadrd83/10/2023sychogenic nonepileptic hrahrub8610/20/2021 Encounters DateTypeDepartmentCare VjckLdouodhhuyk45/22/2025Refill Neurology Headache [facility] [address] [place] [address] Griffin Lepe PA-C Refill Kodolei1701/29/2025 Patient Msg Neurology [address] [place] [address] Lorena Guido APRN.SHOT CORE DRILL OPERATOR HELPER Nasal Spray01/24/2025 11:00 AM ESTOffice Visit Neurology [address] [place] [address] Lorena Guido APRN.SHOT CORE DRILL OPERATOR HELPER Chronic migraine without aura, with intractable migraine, so stated, with status migrainosus (Primary Dx); Intractable chronic migraine without aura and without status migrainosus; Intractable chronic migraine without aura and with status migrainosus; Tcclix1801/24/2025 10:30 AM ESTIn[facility] Center Neurology [address] [place] [address] Chronic migraine without aura, with intractable migraine, so stated, with status migrainosus (Primary Dx); Intractable chronic migraine without aura and with status ervycooontq20/04/2025 10:30 AM ESTInfusion Center Neurology [address] [place] [address] Chronic migraine without aura, with intractable migraine, so stated, with status migrainosus (Primary Dx); Intractable chronic migraine without aura and with status fsykzwampqo05/03/2025 1:00 PM ESTOffice Visit Neurology [address] [place] [address] Jose Edmondson ENDLESS TRACK VEHICLE SUPERVISOR.SHOT CORE DRILL OPERATOR HELPER APPOINTMENT CANCELLED (Primary Dx)01/22/2025 11:30 AM ESTInfusion Center Neurology [address] [place] [address] Chronic migraine without aura, with intractable migraine, so stated, with status migrainosus (Primary Dx); Intractable chronic migraine without aura and with status dnctkvlounr84/24/2025 Patient Msg Neurology [address] [place] [address] Provider, Ccf HEADACHE HGELDFAID35/20/2025 12:00 PM [facility] Neurology Headache [facility] [address] [place] [address] Raiza Morales APRN.SHOT CORE DRILL OPERATOR HELPER Intractable chronic migraine without aura and with status migrainosus (Primary Dx)01/09/20252766Fmqffr33/09/2025Refill Neurology Headache [facility] [address] [place] [address] Griffin Lepe PA-C Refill Pjqhapl4712/13/2024 1:30 PM EDTOffice Visit Neurology [address] [place] [address] Griffin Lepe PA-C Intractable chronic migraine without aura and with status migrainosus (Primary Dx)12/13/2024 8:[facility] [address] [place] [address] Chronic migraine without aura, with intractable migraine, so stated, with status migrainosus (Primary Dx); Intractable chronic migraine without aura and with status eknxvczfaez62/23/2025 10:00 AM EDTInfusion Center Neurology [address] [place] [address] Chronic migraine without aura, with intractable migraine, so stated, with status migrainosus (Primary Dx); Intractable chronic migraine without aura and with status yhvzggjggem73/23/2025 9:00 AM EDTOffice Visit Neurology [address] [place] [address] Basil Cornelius DO Intractable chronic migraine without aura and without status migrainosus (Primary Dx); Cervicalgia; Chronic migraine without aura, with intractable migraine, so stated, with status migrainosus; Intractable chronic migraine without aura and with status /23/2025 Patient Msg Neurology [address] [place] [address] Basil Cornelius DO Wwtxvnun51/22/2025 9:30 AM [facility] Neu[facility] [address] [place] [address] Intractable chronic migraine without aura and without status migrainosus (Primary Dx)11/26/2024 1:45 PM [facility] [address] [place], [place] [address] Raiza Morales, UMANG.FADY Intractable chronic migraine without aura and with status iqljkqkhhle15/07/2025 Patient Msg Neurology [address] [place] [address] Provider, Ccporsche Vyepti Vhenjpzo85/07/7867Byvkhp76/27/2025Refill Neurology [address] [place] [address] Griffin Lepe PA-C Refill Requestfrom Last 3 Months Social History Tobacco UseTypesPacks/DayYears UsedDateSmoking Tobacco: NeverSmokeless Tobacco: Never Tobacco Cessation:Counseling Given: Not Answered PHQ-2AnswerDate RecordedPHQ-2 hvmbm82303/11/2024rea Deprivation IndexAnswerDate RecordedNational Score (1-100), lower number is lower irzl158906/23/2022State Score (1-10), lower number is lower badv10006/23/2022ata from: https://www.neighborhoodatlas.medicine.[facility].edu/. Last address used for [address]/23/2022CommentsNoSex and Gender Information ValueDate RecordedSex Assigned at BirthNot on fileLegal ChsEmmppw68/01/2014 10:32 AM EDTGender IdentityNot on fileSexual OrientationNot on file Last Filed Vital Signs Vital SignReadingTime TakenCommentsBlood Uiderszp738/8012 12:30 PM EST Cewdi55458/05/2025 12:30 PM WBLQtakrvkvfqf11.3 ??C (97.3 ??F)01/19/2024 10:00 AM ESTRespiratory Mbia6556 4:00 PM ESTOxygen Pasywvkxsv78%01/22/2024 1:35 PM ESTon room airInhaled Oxygen Concentration--Uferdy550 kg (282 lb 3 oz) 12/12/2024 8:58 AM HLVGaqchx084.4 cm (5' 2.36 )09/19/2023 2:22 PM EDTBody Mass Index51.02009/19/2023 2:22 PM EDT Plan of Treatment DateTypeDepartmentCare Team (Latest Contact Info)Qahureprgnl69/16/2026 9:30 AM ESTInfusion Center Neurology [address] [place] [address] vyeptiHealth MaintenanceDue DateLast DoneCommentsAnxiety Nphvfynth35/24/2014 Depression Sofqnyobf75/24/2014HIV Ncbulgunm95/24/2014Hepatitis C Screening 11/13/2013Cervical Cancer Mhaqbynjq39/24/2017Covid-19 Vaccine ( season)2024Influenza Vaccine (#1)510/, 12/31/2015, 11/27/2014, Additional history existsDTaP,Tdap,Td Vaccine (8 - Td or Tdap) 6009/21/2015, 10/24/2013, 09/07/2001, Additional history existsHepatitis B UaguhyjMqjibwecw59/05/2003, 05/06/1996, 1995, Additional history exists HPV NxkhlvdNewcajpwt29/02/2013, 01/20/2012, 11/15/2011 Insurance MemberSubscriberPlan / Payer (Effective 2022-Present)Name:Coni Nicholson Relation to Subscriber:SelfName:Coni Nicholson Payer ID:[id number] (NAIC) Group ID:Not on file Type:Medicaid Address: [place] [id number] Care Teams Team MemberRelationshipSpecialtyStart DateEnd Date Abdifatah Brady (Historical) PCP - General05/21/13
--- OUTSIDE RECORDS SUMMARY | 2025-02-13 17:16 | XMS_ITS | Clinical Summary ---
Author Organization [facility] Address [address] [place] [address], [address] [place] [address] Care Team Providers Care Plating Tank Operator Apprentice Name Role Phone Angélica Weber Pamela HECK - CARTON MARKER MACHINE Primary Care Provider [phone] Allergies Active AllergyReactionsCriticalityNoted BdlcLhglmnbdQzfklqrzmeMvoul17/04/2021 Propranolol HclHives,Other (See Comments)12/24/2020 Migrianes ScyldbedzcsdsoVuikg32/04/2021arbamazepineOther (See Comments)12/24/2020 anxiety QjqrksmwjhgnZhonq89/04/2021 Medications MedicationSigDispense QuantityRefillsLast FilledStart DateEnd DateStatus SUMAtriptan [...] Discharge) Active Problems ProblemNoted DateDiagnosed DatePsychogenic nonepileptic ltiblsf9110/20/2021 Seizure-like stuoawfb82/30/2022eizure ksakhnup60/30/2022 Social History Tobacco UseTypesPacks/DayYears UsedDateSmoking Tobacco: NeverSmokeless Tobacco: NeverAlcohol UseStandard Drinks/WeekCommentsNot Currently0 (1 standard drink = 0.6 oz pure alcohol)CommentsNoSex and Gender InformationValueDate RecordedSex Assigned at BirthNot on fileLegal KlbOezayy81/13/2013 12:07 AM EST Gender IdentityNot on fileSexual OrientationNot on file Last Filed Vital Signs Vital SignReadingTime TakenCommentsBlood Jmkqscte339/8802110/20/2021 12:00 PM EDT Jhwpv5109 12:00 PM JLBOlxfuzmygcj06.8 ??C (98.2 ??F)10/20/2021 8:00 AM EDTRespiratory Surf525210/20/2021 12:00 PM EDTOxygen Sgjfjvgvef19%10/20/2021 12:00 PM EDTInhaled Oxygen Concentration--Weight--Height--Body Mass Index-- Plan of Treatment Not on file Insurance Advance Directives * Full Code (Latest Code Status on File) Date ActivatedDate InactivatedComments10/19/2021 12:27 PM10/20/2021 4:12 PM * Full Code Date ActivatedDate InactivatedComments10/19/2021 12:23 PM10/19/2021 12:27 PM Care Teams Team MemberRelationshipSpecialtyStart DateEnd Date Angélica Weebr, LIQUOR GALLERY OPERATOR - CARTON MARKER MACHINE [address] [place] [address] PCP - GeneralNurse Zuyvqhrengqb74/4/21
--- OUTSIDE RECORDS SUMMARY | 2025-02-13 17:16 | XMS_ITS | Encounter Summary ---
Author Organization [facility] tem Address [id number] [address] [place] [address] Care Team Providers Care Revenue Director Name Role Phone Corine Gold MD Primary Care Provider [phone] Encounter Details DateTypeDepartmentCare Team (Latest Contact Info)Yusjnfzmumh00/22/2025Refill [facility] Gynecology Oncology, A Department of [facility] [address] [place] [address] Svetlana Ye PA [address] [place] [address] Post-op pain; Post-operative pain Social History Tobacco UseTypesPacks/DayYears UsedDateSmoking Tobacco: NeverSmokeless Tobacco: NeverAlcohol UseStandard Drinks/WeekCommentsNot Currently0 (1 standard drink = 0.6 oz pure alcohol)[facility] UtilitiesAnswerDate RecordedIn the past 12 months has the [employer], gas, oil, or water [employer] threatened to shut off services in your [...] care, and heating?Not hard at all04/08/2024PHQ-2AnswerDate RecordedTotal Myxde336PRAPARE - TransportationAnswerDate RecordedIn the past 12 months, [...] a part of a household?No04/08/2024hildcareAnswerDate RecordedChildcareUnknown 08/01/2018EmploymentAnswerDate QytogkysRbbmdipjrvAcqsqws87/12/2019Hunger ScreeningAnswerDate RecordedWithin the past 12 months we worried whether our food would run out before we got money to buy more.Never True01/11/2025Within the past 12 months the food we bought just didn't last and we didn't have money to get more.Never True01/11/2025Purpose - LifeAnswerDate RecordedPurpose and direction in zlljCaubsml76/12/2021CommentsNoSex and Gender Information ValueDate RecordedSex Assigned at BirthNot on fileLegal DxmEajrwf62/06/2015 11:52 AM EDTGender IdentityNot on fileSexual OrientationNot on filedocumented as of this encounter Plan of Treatment DateTypeDepartmentCare Team (Latest Contact Info)Uafekjcrzgm19/30/2025 8:30 AM ESTOffice Visit [facility] [address] [place] [address] [place] [address] [place] [address] Rajinder Cotton, DO [address] [facility], [address], [place] [address] 03/25/2025 9:45 AM ESTOffice Visit [facility] [address] [place] [address] Mariah Peña, DO [address] [address] documented as of this encounter Goals GoalPatient Goal TypeAssociated ProblemsRecent ProgressPatient-Stated?Author home aTmiko Thompson RN Note: Evaluation of progress towards goal: Patient stated goal is to return home with [facility] for assistance with wound care documented as of this encounter Visit Diagnoses Diagnosis Post-op pain Other acute postoperative pain Post-operative pain Other acute postoperative pain documented in this encounter Additional Health Concerns AssessmentNoted TimePHQ-9 Depression Total Score: 10:01 AM EDTA Body Mass Index follow-up plan has been documented for the redsvrm6912/20/2024 1:20 PM EDTdocumented as of this encounter Care Teams Team MemberRelationshipSpecialtyStart DateEnd Date Corine Gold MD [address] [place] [address] PCP - GeneralFamily Njiczqyy09/22/25documented as of this encounter
--- OUTSIDE RECORDS SUMMARY | 2025-02-13 17:16 | XMS_ITS | Encounter Summary ---
Author Organization [facility] Address [address] [place] [address] Care Team Providers Care Strip Feeder Name Role Phone Abdifatah Brady (Historical) Primary Care Provide r Unavailable Source Comments In the event this information is protected by the Federal Confidentiality of Alcohol and Drug AbusePatient Records regulations: The Federal rules restrict any use of the information to criminally investigate or prosecute any alcohol or drug abuse patient.[facility] Reason for Visit * ReasonCommentsRefill Request Encounter Details DateTypeDepartmentCare Team (Latest Contact Info)Gmgkempqyvk55/22/2025Refill Neurology Headache [facility] [address] [place] [address] Griffin Lepe PA-C [address] [place] [address] Refill Request Social History Tobacco UseTypesPacks/DayYears UsedDateSmoking Tobacco: NeverSmokeless Tobacco: NeverPHQ-2AnswerDate RecordedPHQ-2 fulbm006/20/2025Area Deprivation IndexAnswer Date RecordedNational Score (1-100), lower number is lower pdxc272206/23/2022State Score (1-10), lower number is lower zvjh6283Data from: https://www.neighborhoodatlas.[facility]/. Last address used for fnitmqfxcos[address]/23/2022CommentsNoSex and Gender Information ValueDate RecordedSex Assigned at BirthNot on fileLegal UwkXdotkp22/01/2014 10:32 AM EDTGender IdentityNot on fileSexual OrientationNot on filedocumented as of this encounter Functional Status * Are you deaf or do you have serious difficulty hearing?AnswerDate of DmlfotxsscIpjtqwEb19/10/2023 6:20 PM Katie Wells RN * Are you blind or do you have serious difficulty seeing, even when wearing glasses?AnswerDate of ZfpryxdzupXrlffuEy45/10/2023 6:20 PM Katie Wells RN * Do you have serious difficulty walking or climbing stairs?AnswerDate of HrtshtjzgnZjqjqtFo76/10/2023 6:20 PM Katie Wells RN * Do you have difficulty dressing or bathing?AnswerDate of AssessmentAuthorNo 04/01/2022 6:20 PM Katie Wells RN * Because of a physical, mental, or emotional condition, do you have difficulty doing errands alone such as visiting a doctor's office or shopping?AnswerDate of XcspetwppfJmhtxvFw94/10/2023 6:20 PM Katie Wells RN documented as of this encounter Mental Status * Because of a physical, mental, or emotional condition, do you have serious difficulty concentrating, remembering, or making decisions?AnswerEntry Date NfpanbKr36/10/2023 6:20 PM Katie Wells RN documented in this encounter Miscellaneous Notes * Telephone Encounter - Lorena Guido APRN.INSTRUCTIONAL DESIGN MANAGER - 02/12/2025 8:37 AM EST The following approved medication requests have been transmitted electronically. Requested Prescriptions Pending Prescriptions Disp Refills keTORolac (TORADOL) 10 mg tablet [Pharmacy Med Name: ketorolac 10 mg tablet] 20 tablet 5 Sig: TAKE 1 TABLET BY MOUTH EVERY 6 HOURS NEEDED Lorena Guido APRN.INSTRUCTIONAL DESIGN MANAGER CMP from 11/24/2024 WNL * Telephone Encounter - Caterina Roper - 02/11/2025 4:47 PM EST Physician: Lata Call/message from pharmacy requesting refill. Last visit: 01/24/25 with Lata in person Future visit: Visit date not found Requested Prescriptions Pending Prescriptions Disp Refills keTORolac (TORADOL) 10 mg tablet [Pharmacy Med Name: ketorolac 10 mg tablet] 20 tablet 5 Sig: TAKE 1 TABLET BY MOUTH EVERY 6 HOURS NEEDED Script(s) will be E-script to pharmacy Pharmacy Name: [facility] documented in this encounter Plan of Treatment DateTypeDepartmentCare Team (Latest Contact Info)Wxiwuizezdq53/16/2026 9:30 AM ESTInfusion Center Neurology [address] [place] [address] vyeptidocumented as of this encounter Visit Diagnoses Not on filedocumented in this encounter Care Teams Team MemberRelationshipSpecialtyStart DateEnd Date Abdifatah Brady (Historical) PCP - General05/21/13documented as of this encounter
--- OUTSIDE RECORDS SUMMARY | 2025-02-13 17:16 | XMS_ITS | Encounter Summary ---
Author Organization [facility] tem Address [facility] [address] [place] [address] Care Team Providers Care Associate Manager Name Role Phone Corine Gold MD Primary Care Provider [phone] Reason for Referral * Medication Prior Authorization - ClosedSpecialtyDiagnoses / ProceduresReferred By ContactReferred To Contact Diagnoses Allergic reaction, sequela Mali Hart APRN-CNP [address] [place] [phone] Phone: tel: fax: Referral IDStatusReasonStart DateExpiration DateVisits RequestedVisits [id number] Reason for Visit * ReasonOnset DateCommentsMed Qolims4602/10/2025 Encounter Details DateTypeDepartmentCare Team (Latest Contact Info)Vwvjgufjcds39/22/2025Refill [facility] [address] [place] [phone] Mali Hart APRN-CNP [address] [place] [phone] Allergic reaction, sequela Social History Tobacco UseTypesPacks/DayYears UsedDateSmoking Tobacco: NeverSmokeless Tobacco: NeverAlcohol UseStandard Drinks/WeekCommentsNot Currently0 (1 standard drink = 0.6 oz pure alcohol)socialAHC UtilitiesAnswerDate RecordedIn the past 12 months has [...] care, and heating?Not hard at all04/08/2024PHQ-2AnswerDate RecordedTotal Anjub101PRAPARE - TransportationAnswerDate RecordedIn the past 12 months, [...] a part of a household?No04/08/2024hildcareAnswerDate RecordedChildcareUnknown 08/01/2018EmploymentAnswerDate YylxjphuDwoucajmrlYujnusv08/12/2019Hunger ScreeningAnswerDate RecordedWithin the past 12 months we worried whether our food would run out before we got money to buy more.Never True01/11/2025Within the past 12 months the food we bought just didn't last and we didn't have money to get more.Never True01/11/2025Purpose - LifeAnswerDate RecordedPurpose and direction in agncBwkakor83/12/2021CommentsNoSex and Gender Information ValueDate RecordedSex Assigned at BirthNot on fileLegal WxeKzggub97/06/2015 11:52 AM EDTGender IdentityNot on fileSexual OrientationNot on filedocumented as of this encounter Plan of Treatment DateTypeDepartmentCare Team (Latest Contact Info)Fassaqphozk03/30/2025 8:30 AM ESTOffice Visit [facility] [address] [place] [address] [place] [phone] Rajinder Cotton, DO [address], [facility] [address], [address] [place], [place] [id number] 03/25/2025 9:45 AM ESTOffice Visit [facility] [address] [address] Mariah Peña, DO [address] [address] documented as of this encounter Goals GoalPatient Goal TypeAssociated ProblemsRecent ProgressPatient-Stated?Author home Tamiko Thompson, PRATIBHA Note: Evaluation of progress towards goal: Patient stated goal is to return home with [facility] for assistance with wound care documented as of this encounter Visit Diagnoses Diagnosis Allergic reaction, sequela documented in this encounter Additional Health Concerns AssessmentNoted TimePHQ-9 Depression Total Score: 10:01 AM EDTA Body Mass Index follow-up plan has been documented for the acgassq3512/20/2024 1:20 PM EDTdocumented as of this encounter Care Teams Team MemberRelationshipSpecialtyStart DateEnd Date Corine Gold MD [address] [facility] [place], [place] [id number] PCP - GeneralFamily Swzswppm35/22/25documented as of this encounter
--- OUTSIDE RECORDS SUMMARY | 2025-02-13 17:16 | XMS_ITS | Clinical Summary ---
Author Organization [employer] s tem Address [id number] [address] [place] [address] Care Team Providers Care Web Coordinator Name Role Phone Corine Gold MD Primary Care Provider [phone] Allergies Active AllergyReactionsCriticalityNoted XfvoGlzqkbrnDcopocfgStnkLwgovv03/17/2022 Adhesive Tape-Vrddnbuqn18/19/2017AmoxicillinHives,KlzptugnRgvi90/21/2025 Amoxicillin-Pot ClavulanateHives,MjprbaevAzjb43/21/2025Bee Venom Protein (Honey Bee)FfwydylcfhuAgls68/05/1189SzagfjwguEvegtXqk54/17/2022arbamazepineOther (See Comments)12/24/2020 anxiety FmkvwqjxwoygrXxsae05/23/0947MmmfbqcnulhAfkbx30/06/2021ProchlorperazineAnxietyLow 12/29/20230830FxnfeghkvqfugPsylv18/27/8598RbzdwibjptacyxtoFrtjx66/23/2023 DihydroergotamineGI Disturbance,QrrlzPmzifi63/07/2023 Other Reaction(s): Intolerance Chest tightness, numbness and tingling in bilateral extremities, increased anxiety Eptinezumab-JjmrItching,SuepSbh5205/02/2024 Patient described extreme itching located on her chest and arms (bilaterally). EivohhqfjpgSlvocpyijzlkxu23/05/5919HykdpmxlacByvzk99/19/2017LevetiracetamHives, Xpdaiog7111/11/2022MetoclopramideHives,Other (See Comments)12/24/2020ropranolol HclHives,Other (See Comments)12/24/2020 Migrianes Pyrilamine-UcixbgnjllrdneufMukns72/12/2023Metoclopramide HclItching,AnxietyLow 12/08/2016 No rash DkyfhivnabxcWlijb35/17/6710ZzbyqznacofqQxqsb23/19/2017 Medications MedicationSigDispense QuantityRefillsLast FilledStart DateEnd DateStatus diazePAM [...] 1 Application before bedtime. 22 g 5Active carBAMazepine XR (TEGretol XR) 100 mg 12 hr tablet Take 2 tablets (200 mg total) by mouth in the morning and 2 tablets (200 mg total) before bedtime. 120 tablet 5Active budesonide (PULMICORT) 1 mg/2 mL nebulizer [...] to both eyes nightly. 3.5 g 5Active predniSONE (DELTASONE) 10 mg tablet Indications:Moderate [...] 2 puffs before bedtime. 13 g 5Active EPINEPHrine (EPIPEN) 0.3 mg/0.3 mL auto-injector Indications:Allergic reaction, sequela0.3 mL (0.3 mg total) by other route as needed (exposure to allergen). 2 each tive omeprazole (PriLOSEC) 40 mg capsule Indications:Gastroesophageal reflux disease without esophagitisTake 1 capsule (40 mg total) by mouth in the morning and at bedtime. 60 capsule 5Active loratadine-pseudoephedrine (CLARITIN-D 24-hour) 10-240 mg per 24 hr tablet Indications:Moderate persistent asthma without complication,Seasonal allergic rhinitis, unspecified triggerTake 1 tablet by mouth in the morning. 30 tablet 5Active baclofen (LIORESAL) 10 mg tablet Indications:Muscle spasmTake 1 tablet (10 mg total) by mouth 2 (two) times a day as needed for muscle spasms. 60 tablet 5Active EPINEPHrine (EPIPEN) 0.3 mg/0.3 mL auto-injector Indications:Allergic reaction, sequela0.3 mL (0.3 mg total) by other route as needed (exposure to allergen). 2 each 107Discontinued(Reorder) baclofen (LIORESAL) 10 mg tablet Indications:Muscle spasmTAKE 1 TABLET BY MOUTH NIGHTLY 30 tablet Discontinued(Reorder) omeprazole (PriLOSEC) 40 mg capsule Indications:Gastroesophageal reflux disease without esophagitisTake 1 capsule (40 mg total) by mouth in the morning and at bedtime. 60 capsule 310//Discontinued(Reorder) loratadine-pseudoephedrine (CLARITIN-D 24-hour) 10-240 mg per 24 hr tablet Indications:Moderate persistent asthma without complication,Seasonal allergic rhinitis, unspecified triggerTake 1 tablet by mouth in the morning. 30 tablet Discontinued(Reorder)Hospital, Clinic, or Other Facility Administered MedicationOrdered DoseRouteFrequencyStart DateEnd DateStatus diazePAM (VALIUM) tablet 5 mg Indications:Psychogenic nonepileptic seizure5 mgoral2 times daily03/28/2024 Active Active Problems ProblemNoted DateDiagnosed DateGastroesophageal reflux disease without viqfullghgp55/28/2025Environmental eovyixfva05/28/2025Eye infection, bilateral 07/24/2024Ingrown nail of great toe07/24/2024bdominal wall amcypzdsgo69/17/2025 Postoperative surgical complication involving genitourinary system associated with genitourinary alaqbudod96/17/2025S/P bilateral salpingo-oophorectomy 03/28/2024hronic migraine without aura without status migrainosus, not jnjizcvymot20/05/2023Polycystic pmlcxwm8601/24/2023Moderate persistent asthma without rgwepusylzcb19/09/3432Eoxxcxn94/09/2022epressive nmxvlvif27/09/2022 Psychogenic nonepileptic rwywchy6410/20/2021Migraine with aura and without status migrainosus, not wkmdkxzugre54/17/2022ilateral occipital /17/2022 Encounter for observation of suspected anomaly not found06/04/2019 Resolved Problems ProblemNoted DateDiagnosed DateResolved DateMild persistent asthma with (acute) eegibecetgqi85/05/202310/ute coughSeizure-like muxmkkfr44/07/2024LOC (loss of consciousness) Simple partial seizure sodzobgm67 Encounters DateTypeDepartmentCare TjipSqzbxyucymv54/23/2025Telephone [facility] [address] [place] [phone] Malia Mason RN 02/10/2025Refill [facility] [address] [phone] Corine Gold MD Muscle spasm02/10/2025Refill [facility] [address] [place] [phone] Saba Carter, JUICE WEIGHER-GLASS CARRIER Moderate persistent asthma without complication; Seasonal allergic rhinitis, unspecified pchcqad8902/10/2025Refill [facility] [address] [facility] [address] [place] [address] Mariah Peña, DO Gastroesophageal reflux disease without qqriyympevm70/22/2025Refill [facility] [address] [place] [phone] Mali Hart JUICE WEIGHER-GLASS CARRIER Allergic reaction, wjgtdcb5702/10/2025Refill [facility] [address] [place] [phone] Corine Gold MD Seasonal allergic rhinitis, unspecified trigger; Muscle spasm02/10/2025Refill [facility], A Department of [address] [phone] Svetlana Ye PA Post-op pain; Post-operative pain02/10/2025Refill [facility] [address] [phone] Saba Carter, JUICE WEIGHER-GLASS CARRIER Moderate persistent asthma without complication; Seasonal allergic rhinitis, unspecified trigger; Watery eyes02/10/2025Refill [facility] [address] [facility] [address] [place] [phone] Mariah Peña, Moderate asthma with acute exacerbation, unspecified whether persistent; Gastroesophageal reflux disease without esophagitis; Moderate persistent asthma without complication; Moderate persistent asthma, unspecified whether jdqnlamhzxn32/22/2025Refill [facility] [address] [place] [phone] Mali Hart JUICE WEIGHER-GLASS CARRIER Allergic reaction, nayagdg5602/10/2025Refill [facility] Family [facility] [address] [place] [phone] Halima Johns, JUICE WEIGHER-GLASS CARRIER Eye infection, vpwobafmr64/22/2025Refill [facility] [address] [place] [phone] Corine Gold MD Seasonal allergic rhinitis, unspecified trigger; Muscle spasm02/10/2025Refill [facility] Gyne[facility] Oncology, A Department of [address] [phone] Svetlana Ye PA Post-op pain; Post-operative pain; Menopausal vxgiwbzh39/22/2025Refill [facility] [address] [place] [phone] Saba Carter, JUICE WEIGHER-GLASS CARRIER Moderate persistent asthma without complication; Seasonal allergic rhinitis, unspecified trigger; Watery eyes02/10/2025[facility] [address] [facility] [address] [place] [phone] Mariah Peña DO Moderate asthma with acute exacerbation, unspecified whether persistent; Gastroesophageal reflux disease without esophagitis; Moderate persistent asthma without complication; Moderate persistent asthma, unspecified whether pqrtqjeislj69/22/2025Refill [facility] Medicine [address] [place] [phone] Mali Hart JUICE WEIGHER-GLASS CARRIER Allergic reaction, yzhtema1402/10/2025Refill [facility] [address] [place] [phone] Halima Johns, JUICE WEIGHER-GLASS CARRIER Eye infection, lsxexgepv37/22/2025 11:12 AM EST - 01/11/2025 1:43 PM EST Emergency [facility] - Emergency [address] [place] [phone] Milad Vee MD Nonintractable headache, unspecified chronicity pattern, unspecified headache type (Primary Dx) Discharge Disposition: Home01/11/20254777Psjvry89/20/2025Orders Only [facility] [address] [phone] Mariah Peña, DO Moderate persistent asthma without complication (Primary Dx)12/20/2024 10:00 AM EDTOffice Visit [facility] [address] [place] [address] [place] [address] Saba Carter, JUICE WEIGHER-GLASS CARRIER Moderate persistent asthma without complication (Primary Dx); Watery eyes; Seasonal allergic rhinitis, unspecified jekeuvf0212/19/2024Orders Only [facility] [address] [phone] Mariah Peña, DO Moderate persistent asthma, unspecified whether /28/2025 9:30 AM EDTOffice Visit [facility] [address] [place] [phone] Mariah Peña, DO Moderate persistent asthma without complication (Primary Dx); Gastroesophageal reflux disease without esophagitis; Environmental vewgjlqvh00/28/2025Telephone [facility] [address] [place] [phone] Heraclio Jovel [facility] Prior Authorization (Dupixent )12/17/20241649Qoysim78/23/2025Telephone [facility] - Sleep Disorders [address] [place] [address] Corine Gold MD Sleep Lab (Comp PSG/PAP)12/10/2024 2:30 PM EDTOffice Visit [facility] [address] [place] [address] [place] [address] Corine Gold MD JUAN DAVID (obstructive sleep apnea) (Primary Dx)12/10/2024Telephone [facility] [address] [phone] Malia Mason RN 12/10/20243382Zfihtw80/20/2025Refill [facility] [address] [phone] Mariah Peña, Moderate asthma with acute exacerbation, unspecified whether persistent 11/24/2024 5:31 PM EDT - 11/25/2024 2:[facility] [address] [place] [address] Cecilio Grant DO Nonintractable headache, unspecified chronicity pattern, unspecified headache type (Primary Dx) Discharge Disposition: Home11/24/20249859Fybdqg41/25/2025Travelfrom Last 3 Months Immunizations ImmunizationAdministration DatesNext LzlSFnI5709/07/2001DTaP / HIB / IPV03/05/1997 ,07/05/1996,05/06/1996,01/15/1996HPV Btpbrhjrwukd12/02/2013,01/20/2012, 11/15/2011Hep B, Adolescent or Tparbcwua29/05/2003,05/06/1996,1995, 1995IPV09/07/2001Influenza (IM) Preservative Free12/31/2015,11/27/2014, 10/23/2012,11/15/2011Influenza, Injectable, Mdck, Preservative Free, Quad 12/08/2017MMR09/07/2001,03/05/1997Meningococcal WTX4J8511/15/2011Tdap09/21/2015 Ezuufytqt46/25/2012,10/25/2002 Family History Medical HistoryRelationNameCommentsAnesthesia problemsFatherprolonged emergence Cystic fibrosisFatherOvarian cancerMaternal AuntAnesthesia problemsMother Prolonged emergenceCystic fibrosisMotherRelationNameStatusCommentsFatherAlive Maternal AuntMotherAliveSister 1AliveSister 2AliveSister 3Alive Social History Tobacco UseTypesPacks/DayYears UsedDateSmoking Tobacco: NeverSmokeless Tobacco: Never Tobacco Cessation:Counseling Given: Not Answered Alcohol UseStandard Drinks/WeekCommentsNot Currently0 (1 standard drink = 0.6 oz pure alcohol)[facility] UtilitiesAnswerDate RecordedIn the past 12 [...] care, and heating?Not hard at all04/08/2024PHQ-2AnswerDate RecordedTotal Wohwh791PRAPARE - TransportationAnswerDate RecordedIn the past 12 months, [...] a part of a household?No04/08/2024hildcareAnswerDate RecordedChildcareUnknown 08/01/2018EmploymentAnswerDate QispwzjcTlhneiadlxYvvftlq23/12/2019Hunger ScreeningAnswerDate RecordedWithin the past 12 months we worried whether our food would run out before we got money to buy more.Never True01/11/2025Within the past 12 months the food we bought just didn't last and we didn't have money to get more.Never True01/11/2025Purpose - LifeAnswerDate RecordedPurpose and direction in oojyMnsksmx17/12/2021CommentsNoSex and Gender Information ValueDate RecordedSex Assigned at BirthNot on fileLegal HlwMswnph17/06/2015 11:52 AM EDTGender IdentityNot on fileSexual OrientationNot on file Last Filed Vital Signs Vital SignReadingTime TakenCommentsBlood Qvbyzomq357/8801/11/2025 1:43 PM EST Panzx24152/22/2025 1:43 PM WXQCoprlxbpqiq29.8 ??C (98.2 ??F)01/11/2025 11:16 AM ESTRespiratory Vjno817503/13/2024 1:43 PM ESTOxygen Krrssjiktv14%01/11/2025 1:43 PM ESTInhaled Oxygen Concentration--Ngyeyq124.4 kg (283 lb)01/11/2025 11:16 AM AABUpcytk455.4 cm (5')01/11/2025 11:16 AM ESTBody Mass Index55.27103/13/2024 11:16 AM EST Plan of Treatment DateTypeDepartmentCare Team (Latest Contact Info)Fnfglqbeaff34/30/2025 8:30 AM ESTOffice Visit [facility] [address] [place] [address] [place] [address] Rajinder Cotton, [address], [address], [place] [address] 03/25/2025 9:45 AM ESTOffice Visit [facility] [address] [place] [phone] Mariah Peña, [address] [address] Health MaintenanceDue DateLast DoneCommentsInfluenza Glzjzuh2610/21/2024 12/08/2017, 12/31/2015, 11/27/2014, Additional history existsDTaP,Tdap and Td Vaccines (7 - Td or Tdap)6009/21/2015, 09/07/2001, 03/05/1997, Additional history existsAdult BMI Follow Up PlanDepression Aqafpwvpz01dult BMI Zaquzwdgu50Tobacco Rzdcjbcie24Pap NzsdxSmyxkvnudwtr61/25/2025 Goals GoalPatient Goal TypeAssociated ProblemsRecent ProgressPatient-Stated?Author home Tamiko Thompson RN Note: Evaluation of progress towards goal: Patient stated goal is to return home with [facility] for assistance with wound care Medical Devices Not on file Procedures Procedure NamePriorityDate/TimeAssociated DiagnosisCommentsCT BRAIN WO CONTSTAT 11/24/2024 9:06 PM EDT ECG 12-PQYEWKVB56/05/2025 7:08 PM EDTCOMPREHENSIVE METABOLIC MMINYDGTO88/05/2025 7:04 PM EDT CBC WITH AUTO IDFAQIDUJKYAUDOW63/05/2025 7:04 PM EDT from Last 3 Months [...] 10:18 PM Authorizing ProviderResult TypeResult Michaela Grant [facility] ORDERABLES Final Result * ECG 12 lead (11/24/2024 7:08 PM EDT)Specimen (Source)Anatomical Location / LateralityCollection Method / VolumeCollection TimeReceived Time11/24/2024 7:08 PM EDT Narrative Authorizing ProviderResult TypeResult Michaela Grant DOECG ORDERABLESFinal ResultPerforming OrganizationAddressCity/State/ZIP CodePhone Number [place] * (ABNORMAL) CBC auto differential (11/24/2024 7:04 PM EDT)ComponentValueRef RangeTest MethodAnalysis TimePerformed AtPathologist SignatureWBC8.34 - 11 x10E9/L1 7:27 PM [facility] LABORATORYRBC Count4.55 3.8 - 5.2 X10E12/L1 7:27 PM [facility] Hazorquzep90.311.7 - 15.5 g/dL11/24/2024 7:27 PM [facility] VLTTHNJVYHMhlzbnsscb66.035 - 47 %11/24/2024 7:27 PM [facility] QHXIKOAUEAATO1498 - 100 fL11/24/2024 7:27 PM [facility] CKCLUOCOAPFAC25.227 - 34 pg11/24/2024 7:27 PM [facility] YEWUAPFMQCDCHV91.132 - 36 g/dL11/24/2024 7:27 PM [facility] VIEHPPHOUBANV68.811.5 - 15 %11/24/2024 7:27 PM [facility] LABORATORYPlatelet Zebnh225065 - 450 X10E9/L1 7:27 PM EDT [facility] LABORATORYMPV7.87 - 12 fL11/24/2024 7:27 PM [facility] LABORATORYNeutrophils %55.2%11/24/2024 7:27 PM [facility] LABORATORYLymphocytes %30.0%11/24/2024 7:27 PM [facility] LABOR[facility]ORYMonocytes %6.7%11/24/2024 7:27 PM [facility] LABORATORYEosinophils %7.5%11/24/2024 7:27 PM [facility] LABORATORYBasophils %0.6%11/24/2024 7:27 PM [facility] LABORATORYNeutrophils Absolute (A)4.61.5 - 6.6 10*3/uL 11/24/2024 7:27 PM [facility] LABORATORYLymphocytes Absolute 2.51.0 - 3.5 10*3/uL11/24/2024 7:27 PM [facility] Monocytes Absolute0.60.0 - 0.9 10*3/uL11/24/2024 7:27 PM [facility] LABORATORYEosinophils Absolute0.6(H)0.0 - 0.4 10*3/uL11/24/2024 7:27 PM [facility] LABORATORYBasophils Absolute0.00.0 - 0.2 10*3/uL 11/24/2024 7:27 PM [facility] LABORATORYDifferential Type AUTOMATED YWUOKYBHWFJE93/05/2025 7:27 PM [facility] LABORATORYSpecimen (Source)Anatomical Location / LateralityCollection Method / VolumeCollection TimeReceived TimeBloodVenous blood / Pgpfnot0911/24/2024 7:04 PM EDT1 7:14 PM EDT Narrative Authorizing ProviderResult TypeResult StatusJesse Jose Grant [facility] BLOOD ORDERABLES Final ResultPerforming OrganizationAddressCity/State/ZIP CodePhone Number [facility] [address] [place] [address], * (ABNORMAL) Comprehensive metabolic panel (11/24/2024 7:04 PM EDT)Component ValueRef RangeTest MethodAnalysis TimePerformed AtPathologist SignatureSODIUM 403061 - 146 mmol/L1 7:48 PM [facility] POTASSIUM4.13.5 - 5.0 mmol/L1 7:48 PM [facility] DAVETNGDCYBXYWUDOZ74883 - 109 mmol/L1 7:48 PM [facility] LABORATORYCARBON NWLGCOK9738 - 32 mmol/L1 7:48 PM [facility] LABORATORYANION QDE098 - 15 mmol/L1 7:48 PM EDT [facility] LABORATORYBLOOD UREA ATKHSJXW269 - 23 mg/dL11/24/2024 7:48 PM [facility] LABORATORYCREATININE0.690.40 - 1.00 mg/dL 11/24/2024 7:48 PM [facility] LABORATORYComment:METHOD TRACEABLE TO IDMS LUSVFYAKOVWRHOR6824 - 99 mg/dL11/24/2024 7:48 PM [facility] LABORATORYCALCIUM9.08.5 - 10.5 mg/dL11/24/2024 7:48 PM EDT [facility] LABORATORYTOTAL PROTEIN6.76.0 - 8.0 g/dL11/24/2024 7:48 PM [facility] LABORATORYALBUMIN4.13.2 - 5.3 g/dL 11/24/2024 7:48 PM [facility] LABORATORYALKALINE PHOSPHATASE 7739 - 130 U/L1 7:48 PM [facility] FSKTSIEZULMUL37 <=41 U/L1 7:48 PM [facility] XKESGKWKMCHPX61<=31 U/L 11/24/2024 7:48 PM [facility] LABORATORYBILIRUBIN,TOTAL0.2(L) 0.3 - 1.2 mg/dL11/24/2024 7:48 PM [facility] LABORATORYEGFR Non-Race Dependent>90>=60 ml/min/1.73sq.m1 7:48 PM [facility] LABORATORYComment: Reported eGFR is based on the CKD-EPI 2020 equation that does not use a race coefficient. Specimen (Source)Anatomical Location / LateralityCollection Method / Volume Collection TimeReceived TimeBloodVenous blood / Ilfnybi1111/24/2024 7:04 PM EDT 11/24/2024 7:14 PM EDT Narrative Authorizing ProviderResult TypeResult StatusJesse Jose [facility] BLOOD ORDERABLES Final ResultPerforming OrganizationAddressCity/State/ZIP CodePhone Number [facility] [address] [place] [address], [place] [phone] from Last 3 Months Insurance Advance Directives * Full Code (Latest Code Status on File) Date ActivatedDate InactivatedComments03/28/2024 2:56 03/28/2024 8:49 PM Care Teams Team MemberRelationshipSpecialtyStart DateEnd Date Corine Gold MD [address] [facility] [address] PCP - GeneralFawyly Lxmwhenq92/22/25
--- OUTSIDE RECORDS SUMMARY | 2025-02-13 17:16 | XMS_ITS | Encounter Summary ---
Author Organization [facility] Sy tem Address [id number] [address] [place] [address] Care Team Providers Care Experimental Mechanic Spacecraft Name Role Phone Corine Gold MD Primary Care Provider [phone] Reason for Visit * ReasonOnset DateCommentsMed Ssonqh5402/10/2025 Encounter Details DateTypeDepartmentCare Team (Latest Contact Info)Nqsetyhfgla32/22/2025Refill [facility] [address] [place] [address] [place] [address] Saba Carter N, TANK CAR RECONDITIONER-NURSERY ATTENDANT [address] [place] [address] Moderate persistent asthma without complication; Seasonal allergic rhinitis, unspecified trigger Social History Tobacco UseTypesPacks/DayYears UsedDateSmoking Tobacco: NeverSmokeless Tobacco: NeverAlcohol UseStandard Drinks/WeekCommentsNot Currently0 (1 standard drink = 0.6 oz pure alcohol)[facility] UtilitiesAnswerDate RecordedIn the past 12 months has the [place], gas, oil, or water [facility] threatened to shut off services in your [...] care, and heating?Not hard at all04/08/2024PHQ-2AnswerDate RecordedTotal Iayjz650PRAPARE - TransportationAnswerDate RecordedIn the past 12 months, [...] a part of a household?No04/08/2024hildcareAnswerDate RecordedChildcareUnknown 08/01/2018EmploymentAnswerDate VvgpmytzRlrrbvjqspUjhfsmf21/12/2019Hunger ScreeningAnswerDate RecordedWithin the past 12 months we worried whether our food would run out before we got money to buy more.Never True01/11/2025Within the past 12 months the food we bought just didn't last and we didn't have money to get more.Never True01/11/2025Purpose - LifeAnswerDate RecordedPurpose and direction in hwnbTyvfxmc60/12/2021CommentsNoSex and Gender Information ValueDate RecordedSex Assigned at BirthNot on fileLegal XcaZywemy26/06/2015 11:52 AM EDTGender IdentityNot on fileSexual OrientationNot on filedocumented as of this encounter Plan of Treatment DateTypeDepartmentCare Team (Latest Contact Info)Lybdpvrxudy84/30/2025 8:30 AM ESTOffice Visit [facility] [address] [place] [address] [place] [address] Rajinder Cotton, DO [address] [facility], [address], [place] [address] 03/25/2025 9:45 AM ESTOffice Visit [facility] [address] [phone] Mariah Peña, [address] [address] documented as of this encounter Goals GoalPatient Goal TypeAssociated ProblemsRecent ProgressPatient-Stated?Author home Tamiko Thompson RN Note: Evaluation of progress towards goal: Patient stated goal is to return home with [facility] for assistance with wound care documented as of this encounter Visit Diagnoses Diagnosis Moderate persistent asthma without complication Seasonal allergic rhinitis, unspecified trigger documented in this encounter Additional Health Concerns AssessmentNoted TimePHQ-9 Depression Total Score: 10:01 AM EDTA Body Mass Index follow-up plan has been documented for the zvkiomm0112/20/2024 1:20 PM EDTdocumented as of this encounter Care Teams Team MemberRelationshipSpecialtyStart DateEnd Date Corine Gold MD [address] [facility] [place] [place] [address] PCP - GeneralFamily Egtwthvb29/22/25documented as of this encounter
--- OUTSIDE RECORDS SUMMARY | 2025-02-13 17:16 | XMS_ITS | Encounter Summary ---
Author Organization [facility] Sy tem Address [facility]-[id number] [address] [place] [address] Care Team Providers Care Alternative Energy Engineer Name Role Phone Corine Gold MD Primary Care Provider [phone] Encounter Details DateTypeDepartmentCare Team (Latest Contact Info)Lummhquwxuv35/22/2025Refill [facility] [address] [facility] [place] [address] Mali Hart, UMANG-CONTACT CENTER DIRECTOR [address] [place], [place] [address] Allergic reaction, sequela Social History Tobacco UseTypesPacks/DayYears UsedDateSmoking Tobacco: NeverSmokeless Tobacco: NeverAlcohol UseStandard Drinks/WeekCommentsNot Currently0 (1 standard drink = 0.6 oz pure alcohol)[facility] UtilitiesAnswerDate RecordedIn the past 12 months has the [employer], gas, oil, or water [employer] threatened to shut off services in your [...] care, and heating?Not hard at all04/08/2024PHQ-2AnswerDate RecordedTotal Ntznz320PRAPARE - TransportationAnswerDate RecordedIn the past 12 months, [...] a part of a household?No04/08/2024hildcareAnswerDate RecordedChildcareUnknown 08/01/2018EmploymentAnswerDate NkbrmrhfBvluqrioagBxjbqwc30/12/2019Hunger ScreeningAnswerDate RecordedWithin the past 12 months we worried whether our food would run out before we got money to buy more.Never True01/11/2025Within the past 12 months the food we bought just didn't last and we didn't have money to get more.Never True01/11/2025Purpose - LifeAnswerDate RecordedPurpose and direction in amfwMjnvugf82/12/2021CommentsNoSex and Gender Information ValueDate RecordedSex Assigned at BirthNot on fileLegal EonQwcody34/06/2015 11:52 AM EDTGender IdentityNot on fileSexual OrientationNot on filedocumented as of this encounter Plan of Treatment DateTypeDepartmentCare Team (Latest Contact Info)Jjpnsndgckh69/30/2025 8:30 AM ESTOffice Visit [facility] [address] [place] [address] [place] [address] Rajinder Cotton, DO 605 [facility], [address], [place] [address] 03/25/2025 9:45 AM ESTOffice Visit [facility] [address] [address] Mariah Peña, DO [address] [address] documented as of this encounter Goals GoalPatient [...] follow-up plan has been documented for the zjbexve3712/20/2024 1:20 PM EDTdocumented as of this encounter Care Teams Team MemberRelationshipSpecialtyStart DateEnd Date Corine Gold MD [address] [place] [address] PCP - GeneralFamily Kvawkwxl56/22/25documented as of this encounter
--- OUTSIDE RECORDS SUMMARY | 2025-02-13 17:16 | XMS_ITS | Clinical Summary ---
Author Organization [facility] Address [address] [facility] [place] [address] Care Team Providers Care Honing Job Setter Name Role Phone Corine Gold MD Primary Care Provider Unavail able Social History Tobacco UseTypesPacks/DayYears UsedDateSmoking Tobacco: Never Assessed CommentsUnknownSex and Gender InformationValueDate RecordedSex Assigned at Not on fileLegal ZeyGnpfir39/11/2020 3:05 PM EDTGender IdentityNot on fileSexual OrientationNot [...] Gold MD [address], [place] [address] [facility]06/11/24
--- OUTSIDE RECORDS SUMMARY | 2025-02-13 17:16 | XMS_ITS | Clinical Summary ---
Author Organization [facility] Address [address] [place] [address] Care Team Providers Care Customer Field Representative Name Role Phone Unavailable Primary Care Provider Unavailabl e Allergies Active AllergyReactionsCriticalityNoted SipkUxqttamvZmjdjxybqgmi60/12/2023Bee JiriwFxgwzgi05/05/2489YppggnixjHvjoeQke14/17/0443GrrendzsompwfSzhgxej22/04/2021 anxiety CephalexinHives,WynrZir1912/08/20167145VlfarhxbzttbuQtzzg14/23/2023larithromycinGI swevbvyvtnj08/16/5095WanctrikqpkDlpssvw33/06/0812BtnzjtljyvylgnyvOqraz89/23/2023 Dextromethorphan-MlpbkbarhwMzjdn07/18/2022DihydroergotamineGI intoleranceMedium 07/27/2022 Chest tightness, numbness and tingling in bilateral extremities, increased anxiety DodpjntjcttibOkajdic43/22/2023MetoclopramideHives,Unknown,TrtsAtq2412/08/2016Other Hives1807PgvnisxzvcwNuyim85/04/2021 Migrianes XpdbmsdbomrzPhowj94/17/2022 Other Reaction(s): intolerance to med Wound Dressing TvftocauHujwEzyivc17/19/2017 Medications MedicationSigDispense QuantityRefillsLast FilledStart DateEnd DateStatus promethazine (Phenergan) 25 MG suppository Insert 25 mg into the rectum every 6 (six) hours if needed for nausea or vomitingActive Acetaminophen Extra Strength 500 MG tablet Take 500 mg by mouth every 6 (six) hours if needed (pain)5Active albuterol (2.5 MG/3ML) 0.083% nebulizer solution Inhale 2.5 mg 4 (four) times a day as fwuxga645Active albuterol HFA 90 mcg/act inhaler Inhale 2 puffs every 4 (four) hours if slzycu2605/27/2024tive amitriptyline (Elavil) 100 MG tablet Take 100 mg by mouth at eunmhgi3706/24/2024tive baclofen (Lioresal) 10 MG tablet Take 10 mg by mouth at bedtimeActive chlorzoxazone (Parafon Forte) 500 MG tablet Take 500 mg by mouth 2 (two) times a day as needed for muscle jwoqdk3905/31/2024 Active diazePAM (Valium) 10 MG tablet Take [...] Take 10 mg by mouth Daily as tzwtda4906/06/2024tive omeprazole (PriLOSEC) [address] capsule Take [...] CT. Referred to GI. Intractable nausea and /19/2024 Assessment & Plan (02/09/2024 12:19 PM EST): [...] lasix PRN. SOB (shortness of breath) on ildcxeaf66/03/2024 Assessment & Plan (01/23/2024 1:55 PM EST): Severe symptom and check CXR. Use albuterol PRN and start prednisone. Pain, wvrkin5501/09/2024 Assessment & Plan (01/09/2024 10:07 AM EST): Broken tooth and follow with dentist. Gargle with warm salt water. Start ultram PRN. Kedzuoh6401/01/2024 Assessment & Plan (01/09/2024 10:08 AM EST): Possibly related to bipolar. Check labs. Encounter for long-term (current) use of kwmecmmjnra69/11/2024Mild persistent asthma with (acute) nngqtyozatqm01/20/2024 Assessment & Plan (02/09/2024 12:19 PM EST): [...] Continue medications as prescribed. Mixed bipolar I atdqoifz17/05/2023 Assessment & Plan (01/09/2024 10:07 AM EST): Denies worsening symptoms and follow with specialists Assessment & Plan (11/15/2023 9:45 AM EDT): Follow with specialists Chronic migraine without aura without status migrainosus, not intractable 01/24/2023 Assessment & Plan (01/09/2024 10:08 AM EST): PINEDA worse and follow with specialists. Generalized anxiety ygznkeio29/05/2023ersistent disorder of initiating or maintaining sleep01/24/2023Mild persistent cdoqnt4701/24/2023 Assessment & Plan (03/21/2023 12:36 PM EST): Continued symptoms and check PFTs. Refer to pulmonology. Use albuterol PRN. Polycystic wqwiyfh4801/24/2023sychogenic nonepileptic kccvpnl2601/24/2023elvic pain in iruttq7212/19/2022 Resolved Problems ProblemNoted DateDiagnosed DateResolved DateAcute bronchitis due to other specified jcnpqizdy19 Assessment & Plan (11/15/2023 9:42 AM EDT): [...] negative check US.Use ultram PRN. Encounters DateTypeDepartmentCare KlclGfunqlaeqgw18/22/2025Telephone [facility] DOUGL[facility] [address] [facility] [address] [place]eb [place], [place] [address]Telephone [facility] DOUGLAS [address] [facility] [place] [address] Zay Blas DO from Last 3 [...] oz pure alcohol)Caffeine intake: >4 cups per euiI4309 Health LiteracyAnswerDate Recorded How often do you [...] relatives?Twice a week01/23/2024How often do you attend baptism or catholic services?More than 4 times per year4Do you belong to any clubs or organizations such as baptism groups, unions, fraternal or athletic donta ups, or school groups?Yes01/23/2024How often do you attend meetings of the clubs or organizations you belong to?More than 4 times per year12/03/2024Are you , , , , never , or living with a partner? Living with eqpepnb6501/23/2024UDIT-CAnswerDate RecordedQ1: How often do you have a [...] and heating?Not very hard01/23/2024HQ-2AnswerDate RecordedPatient Health Questionnaire-2 Vwrid994Finjordan [facility] [place]illito of Occupational Health - Occupational Stress QuestionnaireAnswerDate [...] from medical appointments or from getting medications?Patient hsjotkyd80/03/2024In the past 12 months, has lack of [...] were you homeless or living in a detention (including now)?No 4CommentsNoSex and Gender InformationValueDate RecordedSex Assigned at BirthNot on fileLegal AucPzwznj17/15/2023 7:02 PM EDTGender Identity Not on fileSexual OrientationNot on file Last Filed Vital Signs Vital SignReadingTime TakenCommentsBlood Ywnptvgj877/4253509/03/2024 10:33 AM EDT Lvqoj13520/20/2024 10:38 AM WORWeovbflodkj40.7 ??C (98 ??F)02/09/2024 10:38 AM ESTRespiratory Wnnv241804/11/2023 10:38 AM ESTOxygen Piahnzqdip42%02/09/2024 10:38 AM ESTInhaled Oxygen Concentration--Hwmumb693 kg (268 lb 8 oz)09/03/2024 10:33 AM XUJSfwrou295.9 cm (5' 1 )02/09/2024 10:38 AM ESTBody Mass Index50.73 02/09/2024 10:38 AM EST Plan of Treatment Health MaintenanceDue DateLast DoneCommentsPneumococcal Vaccine: Pediatrics (0 to 5 Years) and At-Risk Patients (6 to 64 Years) (1 of 2 - PCV)11/13/2014 Influenza Vaccine (#1), 12/31/2015, 11/27/2014, Additional history exists Insurance
--- OUTSIDE RECORDS SUMMARY | 2025-02-13 17:16 | XMS_ITS | Encounter Summary ---
Author Organization [facility] Sys tem Address [facility]-[id number] [address] [place] [address] Care Team Providers Care Clinical Psychologist Private Practice Name Role Phone Corine Gold MD Primary Care Provider [phone] Encounter Details DateTypeDepartmentCare Team (Latest Contact Info)Zxchvlignmc00/22/2025Refill [facility] [address] [place] [address] [place] [address] Halima Johns, ASSEMBLY MACHINE OPERATOR-PROGRAM DEVELOPMENT MANAGER [address] [facility] [address], [place] [address] Eye infection, bilateral Social History Tobacco UseTypesPacks/DayYears UsedDateSmoking Tobacco: NeverSmokeless Tobacco: NeverAlcohol UseStandard Drinks/WeekCommentsNot Currently0 (1 standard drink = 0.6 oz pure alcohol)[facility] UtilitiesAnswerDate RecordedIn the past 12 months has the [employer], gas, oil, or water [email or web address] threatened to shut off services in your [...] care, and heating?Not hard at all04/08/2024PHQ-2AnswerDate RecordedTotal Xnoyt758PRAPARE - TransportationAnswerDate RecordedIn the past 12 months, [...] a part of a household?No04/08/2024hildcareAnswerDate RecordedChildcareUnknown 08/01/2018EmploymentAnswerDate RhhsvrksCweubdycemEpvbrqm42/12/2019Hunger ScreeningAnswerDate RecordedWithin the past 12 months we worried whether our food would run out before we got money to buy more.Never True01/11/2025Within the past 12 months the food we bought just didn't last and we didn't have money to get more.Never True01/11/2025Purpose - LifeAnswerDate RecordedPurpose and direction in mkdtErmagjx79/12/2021CommentsNoSex and Gender Information ValueDate RecordedSex Assigned at BirthNot on fileLegal CzlKmnlez05/06/2015 11:52 AM EDTGender IdentityNot on fileSexual OrientationNot on filedocumented as of this encounter Plan of Treatment DateTypeDepartmentCare Team (Latest Contact Info)Yhynaioukbl26/30/2025 8:30 AM ESTOffice Visit [facility] [address] [place] [address] [place] [address] Rajinder Cotton, [address] [place] [address], [address], [place] [address] 03/25/2025 9:45 AM ESTOffice Visit [facility] [address] [place] [address] Mariah Peña, DO [address] [address] documented as of this encounter Goals GoalPatient Goal TypeAssociated ProblemsRecent ProgressPatient-Stated?Author home Tamiko Thompson RN Note: Evaluation of progress towards goal: Patient stated goal is to return home with [facility] for assistance with wound care documented as of this encounter Visit Diagnoses Diagnosis Eye infection, bilateral documented in this encounter Additional Health Concerns AssessmentNoted TimePHQ-9 Depression Total Score: 10:01 AM EDTA Body Mass Index follow-up plan has been documented for the wqhpgjo9012/20/2024 1:20 PM EDTdocumented as of this encounter Care Teams Team MemberRelationshipSpecialtyStart DateEnd Date Corine Gold MD [address] [place] [address] PCP - GeneralFamily Tioohwiu79/22/25documented as of this encounter
--- OUTSIDE RECORDS SUMMARY | 2025-02-13 17:16 | XMS_ITS | Encounter Summary ---
Author Organization [facility] Sy tem Address [id number] [address] [place] [address] Care Team Providers Care It Manager Name Role Phone Corine Gold MD Primary Care Provider [phone] Encounter Details DateTypeDepartmentCare Team (Latest Contact Info)Xupmdquxowz43/22/2025Refill [facility] [address] [facility] [place] [address] Mali Hart, UMANG-CONTROL CLERK HEAD [address] [place], [place] [address] Allergic reaction, sequela Social History Tobacco UseTypesPacks/DayYears UsedDateSmoking Tobacco: NeverSmokeless Tobacco: NeverAlcohol UseStandard Drinks/WeekCommentsNot Currently0 (1 standard drink = 0.6 oz pure alcohol)[facility] UtilitiesAnswerDate RecordedIn the past 12 months has the [employer], gas, oil, or water [employer] threatened to shut off services in your [...] care, and heating?Not hard at all04/08/2024PHQ-2AnswerDate RecordedTotal Dtmiq071PRAPARE - TransportationAnswerDate RecordedIn the past 12 months, [...] a part of a household?No04/08/2024hildcareAnswerDate RecordedChildcareUnknown 08/01/2018EmploymentAnswerDate RcdepjweXrkwokzrpvRmcammq19/12/2019Hunger ScreeningAnswerDate RecordedWithin the past 12 months we worried whether our food would run out before we got money to buy more.Never True01/11/2025Within the past 12 months the food we bought just didn't last and we didn't have money to get more.Never True01/11/2025Purpose - LifeAnswerDate RecordedPurpose and direction in ekypUlagcyj01/12/2021CommentsNoSex and Gender Information ValueDate RecordedSex Assigned at BirthNot on fileLegal BzsQaleqz10/06/2015 11:52 AM EDTGender IdentityNot on fileSexual OrientationNot on filedocumented as of this encounter Plan of Treatment DateTypeDepartmentCare Team (Latest Contact Info)Jmuauwwdlua01/30/2025 8:30 AM ESTOffice Visit [facility] [address] [place] [address] [place] [address] Rajinder Cotton, DO 605 [facility], [address], [place] [address] 03/25/2025 9:45 AM ESTOffice Visit [facility] [address] [address] Mariah Peña, DO [address] [address] documented as of this encounter Goals GoalPatient Goal TypeAssociated ProblemsRecent ProgressPatient-Stated?Author home Tamiko Thompson RN Note: Evaluation of progress towards goal: Patient stated goal is to return home with [facility] for assistance with wound care documented as of this encounter Visit Diagnoses Diagnosis Allergic reaction, sequela documented in this encounter Additional Health Concerns AssessmentNoted TimePHQ-9 Depression Total Score: 10:01 AM EDTA Body Mass Index follow-up plan has been documented for the ggogfck6512/20/2024 1:20 PM EDTdocumented as of this encounter Care Teams Team MemberRelationshipSpecialtyStart DateEnd Date Corine Gold MD [address] [place] [address] PCP - GeneralFamily Yosxroqx56/22/25documented as of this encounter
--- OUTSIDE RECORDS SUMMARY | 2025-02-13 17:16 | XMS_ITS | Encounter Summary ---
Author Organization [facility] Sys tem Address [facility]-[id number] [address] [place] [address] Care Team Providers Care Scenery Builder Name Role Phone Corine Gold MD Primary Care Provider [phone] Reason for Visit * ReasonOnset DateCommentsMed Fmqata1902/10/2025 Encounter Details DateTypeDepartmentCare Team (Latest Contact Info)Tdrfedkcurj09/22/2025Refill [facility] [address] [address] Mariah Peña DO [address] [address] Gastroesophageal reflux disease without esophagitis Social History Tobacco UseTypesPacks/DayYears UsedDateSmoking Tobacco: NeverSmokeless Tobacco: NeverAlcohol UseStandard Drinks/WeekCommentsNot Currently0 (1 standard drink = 0.6 oz pure alcohol)[facility] UtilitiesAnswerDate RecordedIn the past 12 months has the [employer], [employer], oil, or water [employer] threatened to shut off services in your [...] care, and heating?Not hard at all04/08/2024PHQ-2AnswerDate RecordedTotal Uniyh510PRAPARE - TransportationAnswerDate RecordedIn the past 12 months, [...] a part of a household?No04/08/2024hildcareAnswerDate RecordedChildcareUnknown 08/01/2018EmploymentAnswerDate EyfgazqtEqxisoohsdHvqeoyc47/12/2019Hunger ScreeningAnswerDate RecordedWithin the past 12 months we worried whether our food would run out before we got money to buy more.Never True01/11/2025Within the past 12 months the food we bought just didn't last and we didn't have money to get more.Never True01/11/2025Purpose - LifeAnswerDate RecordedPurpose and direction in wgjoGjaenzl83/12/2021CommentsNoSex and Gender Information ValueDate RecordedSex Assigned at BirthNot on fileLegal IcfHjavzf31/06/2015 11:52 AM EDTGender IdentityNot on fileSexual OrientationNot on filedocumented as of this encounter Miscellaneous Notes * Telephone Encounter - Malia Mason RN - 02/10/2025 3:04 PM EST Patient last seen 12-17-24 and has scheduled f/u appt on 03-25-25 documented in this encounter Plan of Treatment DateTypeDepartmentCare Team (Latest Contact Info)Qzaeixjhhuz33/30/2025 8:30 AM ESTOffice Visit [facility] [address] [place] [address] [place] [address] Rajinder Cotton, DO [address] [facility], [facility] [address], [address] [place], [place] [address] 03/25/2025 9:45 AM ESTOffice Visit [facility] [address] [address] Mariah Peña, DO [address] [address] documented as of this encounter Goals GoalPatient Goal TypeAssociated ProblemsRecent ProgressPatient-Stated?Author home Tamiko Thompson RN Note: Evaluation of progress towards goal: Patient stated goal is to return home with [facility] for assistance with wound care documented as of this encounter Visit Diagnoses Diagnosis Gastroesophageal reflux disease without esophagitis Esophageal reflux documented in this encounter Additional Health Concerns AssessmentNoted TimePHQ-9 Depression Total Score: 10:01 AM EDTA Body Mass Index follow-up plan has been documented for the rcdrpfa8712/20/2024 1:20 PM EDTdocumented as of this encounter Care Teams Team MemberRelationshipSpecialtyStart DateEnd Date Corine Gold MD [address], [facility] [place], [place] [address] PCP - GeneralFamily Icbcptrd16/22/25documented as of this encounter
--- OUTSIDE RECORDS SUMMARY | 2025-02-13 17:16 | XMS_ITS | Encounter Summary ---
Author Organization [facility] Sys tem Address [facility]-[id number] [address] [place] [address] Care Team Providers Care Progress Man Name Role Phone Corine Gold MD Primary Care Provider [phone] Encounter Details DateTypeDepartmentCare Team (Latest Contact Info)Rmdvzhjxaog14/22/2025Refill [facility] [address] [place] [address] Corine Gold MD [address] [place] [address] Seasonal allergic rhinitis, unspecified trigger; Muscle spasm Social History Tobacco UseTypesPacks/DayYears UsedDateSmoking Tobacco: NeverSmokeless Tobacco: NeverAlcohol UseStandard Drinks/WeekCommentsNot Currently0 (1 standard drink = 0.6 oz pure alcohol)[facility] UtilitiesAnswerDate RecordedIn the past 12 months has the [employer], gas, oil, or water [employer] threatened to shut off services in your [...] care, and heating?Not hard at all04/08/2024PHQ-2AnswerDate RecordedTotal Elxke892PRAPARE - TransportationAnswerDate RecordedIn the past 12 months, [...] a part of a household?No04/08/2024hildcareAnswerDate RecordedChildcareUnknown 08/01/2018EmploymentAnswerDate FbsyqfvyWwedlgjvdaMihykxo49/12/2019Hunger ScreeningAnswerDate RecordedWithin the past 12 months we worried whether our food would run out before we got money to buy more.Never True01/11/2025Within the past 12 months the food we bought just didn't last and we didn't have money to get more.Never True01/11/2025Purpose - LifeAnswerDate RecordedPurpose and direction in ghcwDhkbiaz92/12/2021CommentsNoSex and Gender Information ValueDate RecordedSex Assigned at BirthNot on fileLegal XraXrhssw19/06/2015 11:52 AM EDTGender IdentityNot on fileSexual OrientationNot on filedocumented as of this encounter Plan of Treatment DateTypeDepartmentCare Team (Latest Contact Info)Kdmqahzjgem53/30/2025 8:30 AM ESTOffice Visit [facility] [address] [place] [address] [place] [address] Rajinder Cotton, DO 605 [facility], [address], [place] [address] 03/25/2025 9:45 AM ESTOffice Visit [facility] [address] [address] Mariah Peña, DO [address] [address] documented as of this encounter Goals GoalPatient Goal TypeAssociated ProblemsRecent ProgressPatient-Stated?Author home Tamiko Thompson RN Note: Evaluation of progress towards goal: Patient stated goal is to return home with [facility] for assistance with wound care documented as of this encounter Visit Diagnoses Diagnosis Seasonal allergic rhinitis, unspecified trigger Muscle spasm Spasm of muscle documented in this encounter Additional Health Concerns AssessmentNoted TimePHQ-9 Depression Total Score: 10:01 AM EDTA Body Mass Index follow-up plan has been documented for the phptfuu2712/20/2024 1:20 PM EDTdocumented as of this encounter Care Teams Team MemberRelationshipSpecialtyStart DateEnd Date Corine Gold MD [address] [place] [address] PCP - GeneralFamily Agjsfeti90/22/25documented as of this encounter
[2025-02-13] MEDS: MAGNESIUM SULFATE IN WATER 2 GM/50 ML PREMIX IV (17:21)
[2025-02-13] MEDS: METHYLPREDNISOLONE SOD SUCC PF 40 MG/ML VIAL IVP (17:21)
[2025-02-13 17:41] LABS: Band Neutrophils Absolute 0.2 10^3/uL (0.0-0.3); Basophils Abs Manual 0.06 10^3/uL (0.00-0.10); Basophils Percent Manual 1.0 % (0.2-2.0); Eosinophils Absolute Manual 0.00 10^3/uL (0.00-0.70); Eosinophils Percent Manual 0.0 % (0.9-7.0); Lymphocytes Absolute Manual 0.33 10^3/uL (1.20-3.80); Lymphocytes Percent Manual 5.0 % (20.5-60.0); Monocytes Absolute Manual 0.13 10^3/uL (0.30-0.80); Monocytes Percent Manual 2.0 % (1.7-12.0); Segmented Neut Absolute Manual 5.96 10^3/uL (1.4-6.5); Segmented Neutrophils % Manual 89.0 (43.0-75.0)
--- NOTE | 2025-02-13 18:22 | ED.GENADUL1 ---
HPI HPI - General Adult General Chief complaint: Shortness of Breath/Dyspnea Stated complaint: SHortness of breath Time Seen by Provider: 02/13/25 16:26 Source: patient Mode of arrival: walk-in Limitations: no limitations History of Present Illness HPI narrative: Patient is a 29-year-old female presenting to the emergency department for concern of an asthma exacerbation. Patient states she was admitted to the hospital 1 week ago for the same issue. She was discharged on prednisone and doxycycline. She has been taking her medications consistently, however her shortness of breath/asthma has recurred. She has been using her nebulizer and albuterol inhaler at home, however this has not helped her symptoms. She is otherwise asymptomatic. She denies chest pain, but her chest does feel tight from the asthma. She denies nausea or vomiting. No fevers or chills. Related Data Home Medications ?Medication ?Instructions ?Recorded ?Confirmed diazepam 10 mg tablet 5 mg PO QID PRN seizures 07/20/22 02/01/25 epinephrine 0.3 mg/0.3 mL 0.3 mg IM Q10M PRN anaphylaxis 07/20/22 02/01/25 injection, auto-injector diphenhydramine HCl 25 mg capsule 75 mg PO Q6H PRN migraine headache 01/26/23 02/01/25 (Benadryl) albuterol sulfate 90 mcg/actuation 2 puff inhalation Q4H PRN 08/16/23 02/01/25 aerosol inhaler shortness of breath or wheezing magnesium oxide 400 mg (241.3 mg 400 mg PO .qhs 08/16/23 02/01/25 magnesium) tablet zolmitriptan 5 mg nasal spray 1 spray intranasal Q2H PRN headache 08/16/23 02/01/25 baclofen 10 mg tablet 10 mg PO TID 02/01/25 02/01/25 carbamazepine 200 mg tablet 200 mg PO Q12H 02/01/25 02/01/25 desvenlafaxine succinate 50 mg 50 mg PO Q24H 02/01/25 02/01/25 tablet,extended release 24 hr doxycycline monohydrate 100 mg 100 mg PO Q12H 02/01/25 02/01/25 capsule estradiol 1 mg tablet 1 mg PO DAILY 02/01/25 02/01/25 fluocinolone acetonide oil 0.01 % 5 drp otic (ear) BID 02/01/25 02/01/25 ear drops mometasone-formoterol HFA 200 2 inh inhalation Q12H 02/01/25 02/01/25 mcg-5 mcg/actuation aerosol inhaler (Dulera) olanzapine 10 mg tablet 10 mg PO .qhs 02/01/25 02/01/25 omeprazole 40 mg capsule,delayed 40 mg PO BID 02/01/25 02/01/25 release prednisolone acetate 1 % eye 1 drp ophthalmic (eye) Q8H 02/01/25 02/01/25 drops,suspension prednisone 20 mg tablet 20 mg PO DAILY 02/01/25 02/01/25 progesterone micronized 100 mg 100 mg PO DAILY 02/01/25 02/01/25 capsule scopolamine base 1 mg over 3 days 1 patch transdermal Q72H 02/01/25 02/01/25 transdermal patch tiotropium bromide 2.5 2 puff inhalation QAM 02/01/25 02/01/25 mcg/actuation mist for inhalation (Spiriva Respimat) tobramycin 0.3 % eye drops 1 drp ophthalmic (eye) .Q4HWA 02/01/25 02/01/25 Previous Rx's ?Medication ?Instructions ?Recorded promethazine 25 mg tablet 25 mg PO Q6H PRN nausea and 12/29/24 vomiting #14 tabs acetaminophen 300 mg-codeine 15 mg 1 tab PO BID PRN cough 5 days #10 02/02/25 tablet tabs Allergies Allergy/AdvReac Type Severity Reaction Status Date / Time dihydroergotamine Allergy Unknown Hives Verified 02/01/25 08:59 haloperidol (From Haldol) Allergy Unknown Hives Verified 02/01/25 08:59 vortioxetine Allergy Unknown Hives Verified 02/01/25 08:59 buspirone Allergy Hives Verified 02/01/25 08:59 carbamazepine Allergy Unknown Verified 02/01/25 08:59 levetiracetam (From Keppra) Allergy ITCHING Verified 02/01/25 08:59 azithromycin (From Zithromax) AdvReac Intermediate Hives Verified 02/01/25 08:59 bee venom protein (honey bee) AdvReac Intermediate Hives Verified 02/01/25 08:59 metoclopramide (From Reglan) AdvReac Intermediate panic Verified 02/01/25 08:59 adhesive tape AdvReac Mild Rash Verified 02/01/25 08:59 cephalexin (From Keflex) AdvReac Mild Hives Verified 02/01/25 08:59 dextromethorphan (From AdvReac Mild Unknown Verified 02/01/25 08:59 Marshall DM) pyrilamine (From Marshall DM) AdvReac Mild Unknown Verified 02/01/25 08:59 prochlorperazine (From AdvReac Anxiety Verified 02/01/25 08:59 Compazine) propranolol AdvReac Hives Verified 02/01/25 08:59 Opioid HPI Opioid Management Most Recent Opioid Data: Last Pain Scale 8 Today, 16:39 Last ORT Total Score 7 02/01/25, 15:21 Last ORT Risk Category Moderate Risk 02/01/25, 15:21 Ur Phencyclidine Scrn, (NEGATIVE) Negative 08/16/23, 15:15 Review of Systems ROS Status of ROS 10 or more systems reviewed and unremarkable except as noted in history and below PFSH PFS Medical History (Updated 02/13/25 @ 18:27 by David Monterroso DO) Chronic pain disorder ?G89.4 - Chronic pain syndrome (ICD-10) Migraine ?G43.909 - Migraine, unspecified, not intractable, without status migrainosus (ICD-10) Seizure disorder ?G40.909 - Epilepsy, unspecified, not intractable, without status epilepticus (ICD-10) Bipolar disorder ?F31.9 - Bipolar disorder, unspecified (ICD-10) Pelvic pain ?R10.2 - Pelvic and perineal pain (ICD-10) Bilateral occipital neuralgia ?M54.81 - Occipital neuralgia (ICD-10) Combative behavior ?R46.89 - Other symptoms and signs involving appearance and behavior (ICD-10) PCOS (polycystic ovarian syndrome) ?E28.2 - Polycystic ovarian syndrome (ICD-10) Mitral valve prolapse ?I34.1 - Nonrheumatic mitral (valve) prolapse (ICD-10) GERD (gastroesophageal reflux disease) ?K21.9 - Gastro-esophageal reflux disease without esophagitis (ICD-10) Depression ?F32.A - Depression, unspecified (ICD-10) Blood in urine ?R31.9 - Hematuria, unspecified (ICD-10) Acne ?L70.9 - Acne, unspecified (ICD-10) Dyspareunia Brain mass ?G93.89 - Other specified disorders of brain (ICD-10) Kidney stones ?N20.0 - Calculus of kidney (ICD-10) COVID-19 ?U07.1 - COVID-19 (ICD-10) Bronchitis ?J40 - Bronchitis, not specified as acute or chronic (ICD-10) Asthma ?J45.909 - Unspecified asthma, uncomplicated (ICD-10) Stress incontinence ?N39.3 - Stress incontinence (female) (male) (ICD-10) Dysuria ?R30.0 - Dysuria (ICD-10) Anxiety ?F41.9 - Anxiety disorder, unspecified (ICD-10) Surgical History H/O laparoscopy (07/21/22) ?Z98.890 - Other specified postprocedural states (ICD-10) S/P RAVI-BSO ?Z90.710 - Acquired absence of both cervix and uterus (ICD-10) ?Z90.722 - Acquired absence of ovaries, bilateral (ICD-10) ?Z90.79 - Acquired absence of other genital organ(s) (ICD-10) Hx laparoscopic cholecystectomy ?Z90.49 - Acquired absence of other specified parts of digestive tract (ICD-10) H/O: ?Z98.891 - History of uterine scar from previous surgery (ICD-10) History of appendectomy ?Z90.49 - Acquired absence of other specified parts of digestive tract (ICD-10) Family History Other Acid reflux Acute renal disease Afib Chromosomal disorder Delayed developmental milestones Diabetes Family history of hypertension High cholesterol Neuro-irritability due to autonomic dysfunction 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 Known occupational exposures/hazards: No Highest level of school completed/degree received: high school graduate Do you want help with school or training: No Are you now , , , , never or living with a partner: living with partner In a typical week, how many times do you talk on the telephone with family, friends, or neighbors: 3 or more times per week How often do you get together with friends or relatives: 3 or more times per week How often do you attend restorationism or faith services: 4 or more times per year Do you belong to any clubs or organizations such as restorationism groups unions, [employer] or athletic groups, or school groups: no Total score: 3 Score interpretation: A score of greater than or equal to 2 indicates the lowest level of social isolation. Little interest or pleasure in doing things: not at all Feeling down, depressed, or hopeless: not at all Feel stressed/tense/nervous/anxious/difficulty sleeping: very much Life stressors: other Life stressor details: pt has 4 special needs kids Due to disability, difficulty making decisions: No Do you think of yourself as: straight/heterosexual Gender Identity: female Exam Narrative Exam Narrative: CONSTITUTIONAL: Patient appears anxious, tachypneic, speaking in truncated sentences, answering questions and following commands appropriately SKIN: Was warm and dry. EYES: Sclerae white. EARS, NOSE, THROAT: Moist oral mucosa. RESPIRATORY: Bilateral expiratory wheezing with use of accessory muscles. CARDIOVASCULAR: Normal rate and regular rhythm. There is no S3, S4, murmur, rub. GASTROINTESTINAL: Abdomen is nondistended. MUSCULOSKELETAL: No peripheral edema. NEUROLOGIC: Patient is awake and alert. Facies were symmetrical. Constitutional Vital Signs, click to edit/add: Last Vital Signs Temp 98.4 F 02/13/25 16:39 Pulse 112 H 02/13/25 17:18 Resp 28 H 02/13/25 16:39 BP 136/86 02/13/25 16:39 Pulse Ox 93 L 02/13/25 17:18 O2 Del Method Room Air 02/13/25 17:18 Course Vital Signs Vital signs: Vital Signs Temperature 98.4 F 02/13/25 16:39 Pulse Rate 110 H 02/13/25 16:39 Respiratory Rate 28 H 02/13/25 16:39 Blood Pressure 136/86 02/13/25 16:39 Pulse Oximetry 95 02/13/25 16:39 Oxygen Delivery Method Room Air 02/13/25 16:39 Temperature 98.4 F 02/13/25 16:39 Pulse Rate 112 H 02/13/25 17:18 Respiratory Rate 28 H 02/13/25 16:39 Blood Pressure 136/86 02/13/25 16:39 Pulse Oximetry 93 L 02/13/25 17:18 Oxygen Delivery Method Room Air 02/13/25 17:18 Medical Decision Making [facility] Narrative Medical decision making narrative: Patient is a 29-year-old female presenting to the emergency department for concerns of an asthma exacerbation over the last 24 hours. On review of external documentation, patient was admitted to the hospital 11 days ago for the same issue. She was discharged on doxycycline and prednisone, which she has been taking. Her vital signs on arrival during this visit were significant for tachycardia and tachypnea, otherwise were within normal limits. She is mildly hypoxic to 93% on room air. She is afebrile. Her examination is outlined above, however is notable for bilateral expiratory wheezing and mild to moderate respiratory distress. Differential diagnose includes asthma exacerbation, pneumothorax. Less likely to be related pneumonia as she has been on doxycycline. She was treated with nebulized albuterol/Pratropium, IV magnesium sulfate, and IV Solu-Medrol. Repeat chest x-ray was ordered. Chest x-ray independently reviewed/interpreted by myself demonstrated no acute cardiopulmonary process. Laboratory studies were unremarkable. No significant electrolyte or metabolic derangement. No evidence of acute kidney injury. No anemia, leukocytosis, or thrombocytopenia. 12 Lead EKG: Sinus tachycardia at a rate of 118. Normal axis. No ST segment elevations. QRS, IL, and QTc interval within normal limits. Final impression: Sinus tachycardia without evidence of acute myocardial ischemia On reevaluation, patient's wheezing has significantly improved on repeat auscultation. The patient is breathing more comfortably and is less tachypneic. Though she looks clinically improved, she is insistent that she needs to be admitted to the hospital as she does not feel back to her baseline and is concerned her asthma will rebound. I discussed the patient with Dr. Mcnamara who accepted the patient to his service. FINAL IMPRESSION: #Acute asthma exacerbation DISPOSITION: Admitted to the observation unit CONDITION: Fair Medical Records Medical records reviewed: Yes I reviewed the patient's medical records Lab Data Lab results reviewed: Yes I reviewed the patient's lab results Labs: Lab Results 02/13/25 Range/Units 16:50 WBC 6.7 (4.0-11.0) 10^3/uL RBC 3.92 L (4.20-5.40) 10^6/uL Hgb 11.5 L (12.0-16.0) g/dL Hct 34.8 L (36.0-48.0) % MCV 88.8 (81.0-99.0) fL MCH 29.3 (26.7-34.0) pg MCHC 33.0 (29.9-35.2) g/dL RDW 13.6 (11.0-15.0) % Plt Count 215 (150-450) 10^3/uL MPV 9.4 L (9.5-13.5) fL Seg Neuts % (Manual) 89.0 H (43.0-75.0) Band Neutrophils % 3.0 (0-5) % Lymphocytes % (Manual) 5.0 L (20.5-60.0) % Monocytes % (Manual) 2.0 (1.7-12.0) % Eosinophils % (Manual) 0.0 L (0.9-7.0) % Basophils % (Manual) 1.0 (0.2-2.0) % Neutrophils # (Manual) 5.96 (1.4-6.5) 10^3/uL Band Neutrophils # 0.2 (0.0-0.3) 10^3/uL Lymphocytes # (Manual) 0.33 L (1.20-3.80) 10^3/uL Monocytes # (Manual) 0.13 L (0.30-0.80) 10^3/uL Eosinophils # (Manual) 0.00 (0.00-0.70) 10^3/uL Basophils # (Manual) 0.06 (0.00-0.10) 10^3/uL Sodium 139 (136-145) mmol/L Potassium 4.1 (3.5-5.1) mmol/L Chloride 104 (98-107) mmol/L Carbon Dioxide 26.3 (21.0-32.0) mmol/L Anion Gap 12.8 BUN 16.0 (7.0-18.0) mg/dL Creatinine 0.72 (0.55-1.02) mg/dL Est GFR ( Amer) >60 (>=60 mL/min/1.73m^2) Est GFR (Non-Af Amer) >60 (>=60 mL/min/1.73m^2) BUN/Creatinine Ratio 22.2 Glucose 163 H (74-106) mg/dL Calcium 8.4 L (8.5-10.1) mg/dL Serum HCG, Qual Negative (NEGATIVE) Imaging Data Chest x-ray: Attestation: I personally reviewed and interpreted this imaging study as follows: Radiologist's impression: ITS Impressions Chest X-Ray 02/13/25 16:56 IMPRESSION: No acute process. Impression dictated by: Kings Remy M.D. 02/13/2025 5:27 PM Dictation Location: [place] [address] Electronically authenticated by: [id number] Y Date: 02/13/2025 17:27 ECG Data Attestation: I personally reviewed and interpreted this ECG as follows: Discharge Plan Discharge Chief Complaint: Shortness of Breath/Dyspnea Clinical Impression: Asthma exacerbation Patient Disposition: Admitted as Observation Time of Disposition Decision: 18:27 Condition: Fair
[2025-02-13 19:02] LABS: SARS-CoV-2 Ag NEGATIVE (NEGATIVE)
--- NOTE | 2025-02-13 19:02 | PC.NURSE ---
pt walked to bathroom at this time - SpO2 99% on RA.
[2025-02-13] MEDS: IPRATROPIUM/ALBUTEROL SULFATE 3 ML AMPUL.NEB IH (21:00)
[2025-02-13] MEDS: ENOXAPARIN SODIUM 40 MG/0.4 ML SYRINGE SUBQ (21:18)
[2025-02-13] MEDS: OSELTAMIVIR PHOSPHATE 75 MG CAPSULE PO (21:18)
[2025-02-14] VITALS (18 sets, daily range): BP systolic 105–163; BP diastolic 68–84; PULSE 90–124; TEMP 36.6–37.4; O2SAT 91–98; BMI 56.6
[2025-02-14] MEDS: ALBUTEROL SULFATE 2.5 MG/3 ML VIAL NEB IH ×2 (01:01→05:08)
[2025-02-14 05:51] LABS: Hematocrit 34.8 % (36.0-48.0); Hemoglobin 11.0 g/dL (12.0-16.0); Immature Granulocytes Abs Auto 0.02 10^3/uL (0.00-0.03); Immature Granulocytes Pct Auto 0.5 % (0.0-0.5); Lymphocytes Absolute Auto 0.6 10^3/uL (1.2-3.8); Mean Corpuscular HGB Conc 31.6 g/dL (29.9-35.2); Mean Corpuscular Hemoglobin 28.6 pg (26.7-34.0); Mean Corpuscular Volume 90.6 fL (81.0-99.0); Platelet Count 205 10^3/uL (150-450); Red Blood Count 3.84 10^6/uL (4.20-5.40); White Blood Count 4.3 10^3/uL (4.0-11.0)
[2025-02-14 06:07] LABS: Anion Gap 11.0; Blood Urea Nitrogen 16.0 mg/dL (7.0-18.0); Calcium 8.3 mg/dL (8.5-10.1); Carbon Dioxide 27.3 mmol/L (21.0-32.0); Chloride 107 mmol/L (98-107); Estimated GFR (African America >60 (>=60 mL/min/1.73m^2); Estimated GFR (Non-African Ame >60 (>=60 mL/min/1.73m^2); Glucose 94 mg/dL (74-106); Magnesium 2.1 mg/dL (1.8-2.4); Potassium 3.3 mmol/L (3.5-5.1); Sodium 142 mmol/L (136-145)
--- NOTE | 2025-02-14 07:40 | CM.NOTE ---
Rounds made with Dr. Mcnamara, discussed plan of care with pt. Pt continues to c/o SOB. No discharge today, pt inpatient status. Continue treatment as ordered.
--- NOTE | 2025-02-14 08:00 | ECG_ITS ---
[facility] Test Date: 2025-02-14 Pat Name: MARGARET PLATT Department: Room: [facility] Gender: Female Sales Lead: : 1995 Requested By: [id number] Order Number: [id number] Reading MD: NUVIA ESTRADA M.D. Measurements Intervals [place] Rate: 90 P: 62 W[place]: 144 QRS: 68 QRSD: 88 T: 55 QT: 349 QTc: 427 Interpretive Statements SINUS RHYTHM Normal ECG Compared to ECG 02/13/2025 16:38:15 Sinus tachycardia no longer present Electronically Signed On 02-14-2025 7:19:24 EST by NUVIA ESTRADA M.D.
--- NOTE | 2025-02-14 09:02 | PM.HP ---
HPI H&P: HPI History of Present Illness Chief complaint: FLU, ASTHMA EXACERBATION Narrative: Mrs. Nicholson is a 29-year-old female with the history of asthma since born. She came in with worsening cough, wheezing and congestion. No fever or chills. Cough moist and productive to yellowish sputum. No abdominal pain, nausea or vomiting. Patient is positive for influenza A. Patient does not smoke. Opioid HPI Opioid Management Most Recent Pain and Opioid Data: Last Pain Scale 7 Today, 06:00 Last Pain Assessment Today, 08:00 Last ORT Total Score 4 Today, 04:16 Last ORT Risk Category Moderate Risk Today, 04:16 Ur Phencyclidine Scrn, (NEGATIVE) Negative 08/16/23, 15:15 Review of Systems ROS Status of ROS 10 or more systems reviewed and unremarkable except as noted in history and below [facility] Medical History (Updated 02/14/25 @ 09:04 by Blas Mcnamara MD) Chronic pain disorder ?G89.4 - Chronic pain syndrome (ICD-10) Migraine ?G43.909 - Migraine, unspecified, not intractable, without status migrainosus (ICD-10) Seizure disorder ?G40.909 - Epilepsy, unspecified, not intractable, without status epilepticus (ICD-10) Bipolar disorder ?F31.9 - Bipolar disorder, unspecified (ICD-10) Pelvic pain ?R10.2 - Pelvic and perineal pain (ICD-10) Bilateral occipital neuralgia ?M54.81 - Occipital neuralgia (ICD-10) Combative behavior ?R46.89 - Other symptoms and signs involving appearance and behavior (ICD-10) PCOS (polycystic ovarian syndrome) ?E28.2 - Polycystic ovarian syndrome (ICD-10) Mitral valve prolapse ?I34.1 - Nonrheumatic mitral (valve) prolapse (ICD-10) GERD (gastroesophageal reflux disease) ?K21.9 - Gastro-esophageal reflux disease without esophagitis (ICD-10) Depression ?F32.A - Depression, unspecified (ICD-10) Blood in urine ?R31.9 - Hematuria, unspecified (ICD-10) Acne ?L70.9 - Acne, unspecified (ICD-10) Dyspareunia Brain mass ?G93.89 - Other specified disorders of brain (ICD-10) Kidney stones ?N20.0 - Calculus of kidney (ICD-10) COVID-19 ?U07.1 - COVID-19 (ICD-10) Bronchitis ?J40 - Bronchitis, not specified as acute or chronic (ICD-10) Asthma ?J45.909 - Unspecified asthma, uncomplicated (ICD-10) Stress incontinence ?N39.3 - Stress incontinence (female) (male) (ICD-10) Dysuria ?R30.0 - Dysuria (ICD-10) Anxiety ?F41.9 - Anxiety disorder, unspecified (ICD-10) Surgical History H/O laparoscopy (07/21/22) ?Z98.890 - Other specified postprocedural states (ICD-10) S/P RAVI-BSO ?Z90.710 - Acquired absence of both cervix and uterus (ICD-10) ?Z90.722 - Acquired absence of ovaries, bilateral (ICD-10) ?Z90.79 - Acquired absence of other genital organ(s) (ICD-10) Hx laparoscopic cholecystectomy ?Z90.49 - Acquired absence of other specified parts of digestive tract (ICD-10) H/O: ?Z98.891 - History of uterine scar from previous surgery (ICD-10) History of appendectomy ?Z90.49 - Acquired absence of other specified parts of digestive tract (ICD-10) Family History Other Acid reflux Acute renal disease Afib Chromosomal disorder Delayed developmental milestones Diabetes Family history of hypertension High cholesterol Neuro-irritability due to autonomic dysfunction 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[employer] Known occupational exposures/hazards: No Highest level of school completed/degree received: high school graduate Do you want help with school or training: No Are you now , , , , never or living with a partner: living with partner In a typical week, how many times do you talk on the telephone with family, friends, or neighbors: 3 or more times per week How often do you get together with friends or relatives: 3 or more times per week How often do you attend voodoo or evangelical services: 4 or more times per year Do you belong to any clubs or organizations such as voodoo groups unions, fraternal or athletic groups, or school groups: no Total score: 3 Score interpretation: A score of greater than or equal to 2 indicates the lowest level of social isolation. Little interest or pleasure in doing things: not at all Feeling down, depressed, or hopeless: not at all Feel stressed/tense/nervous/anxious/difficulty sleeping: very much Life stressors: other Life stressor details: pt has 4 special needs kids Due to disability, difficulty making decisions: No Do you think of yourself as: straight/heterosexual Gender Identity: female Meds Home Medications and Allergies Home Medications ?Medication ?Instructions ?Recorded ?Confirmed ?Type diazepam 10 mg tablet 5 mg PO QID PRN seizures 07/20/22 02/14/25 History epinephrine 0.3 mg/0.3 mL 0.3 mg IM Q10M PRN anaphylaxis 07/20/22 02/14/25 History injection, auto-injector diphenhydramine HCl 25 mg capsule 75 mg PO Q6H PRN migraine headache 01/26/23 02/14/25 History (Benadryl) albuterol sulfate 90 mcg/actuation 2 puff inhalation Q4H PRN 08/16/23 02/14/25 History aerosol inhaler shortness of breath or wheezing magnesium oxide 400 mg (241.3 mg 400 mg PO .qhs 08/16/23 02/14/25 History magnesium) tablet zolmitriptan 5 mg nasal spray 1 spray intranasal Q2H PRN headache 08/16/23 02/14/25 History promethazine 25 mg tablet 25 mg PO Q6H PRN nausea and 12/29/24 02/14/25 Rx vomiting #14 tabs baclofen 10 mg tablet 10 mg PO .QHS 02/01/25 02/14/25 History carbamazepine 200 mg tablet 200 mg PO Q12H 02/01/25 02/14/25 History desvenlafaxine succinate 50 mg 50 mg PO Q24H 02/01/25 02/14/25 History tablet,extended release 24 hr estradiol 1 mg tablet 1 mg PO DAILY 02/01/25 02/14/25 History fluocinolone acetonide oil 0.01 % 5 drp otic (ear) BID 02/01/25 02/14/25 History ear drops mometasone-formoterol HFA 200 2 inh inhalation Q12H 02/01/25 02/14/25 History mcg-5 mcg/actuation aerosol inhaler (Dulera) olanzapine 10 mg tablet 10 mg PO .qhs 02/01/25 02/14/25 History omeprazole 40 mg capsule,delayed 40 mg PO BID 02/01/25 02/14/25 History release prednisolone acetate 1 % eye 1 drp ophthalmic (eye) Q8H 02/01/25 02/14/25 History drops,suspension prednisone 20 mg tablet 20 mg PO DAILY 02/01/25 02/14/25 History progesterone micronized 100 mg 100 mg PO DAILY 02/01/25 02/14/25 History capsule scopolamine base 1 mg over 3 days 1 patch transdermal Q72H 02/01/25 02/14/25 History transdermal patch tiotropium bromide 2.5 2 puff inhalation QAM 02/01/25 02/14/25 History mcg/actuation mist for inhalation (Spiriva Respimat) tobramycin 0.3 % eye drops 1 drp ophthalmic (eye) .Q4HWA 02/01/25 02/14/25 History Allergies Allergy/AdvReac Type Severity Reaction Status Date / Time dihydroergotamine Allergy Unknown Hives Verified 02/01/25 08:59 haloperidol (From Haldol) Allergy Unknown Hives Verified 02/01/25 08:59 vortioxetine Allergy Unknown Hives Verified 02/01/25 08:59 buspirone Allergy Hives Verified 02/01/25 08:59 carbamazepine Allergy Unknown Verified 02/01/25 08:59 levetiracetam (From Keppra) Allergy ITCHING Verified 02/01/25 08:59 azithromycin (From Zithromax) AdvReac Intermediate Hives Verified 02/01/25 08:59 bee venom protein (honey bee) AdvReac Intermediate Hives Verified 02/01/25 08:59 metoclopramide (From Reglan) AdvReac Intermediate panic Verified 02/01/25 08:59 adhesive tape AdvReac Mild Rash Verified 02/01/25 08:59 cephalexin (From Keflex) AdvReac Mild Hives Verified 02/01/25 08:59 dextromethorphan (From AdvReac Mild Unknown Verified 02/01/25 08:59 Valdez DM) pyrilamine (From Valdez DM) AdvReac Mild Unknown Verified 02/01/25 08:59 prochlorperazine (From AdvReac Anxiety Verified 02/01/25 08:59 Compazine) propranolol AdvReac Hives Verified 02/01/25 08:59 Exam Narrative Exam Narrative: [pt is awake and alert. oriented to place, time and person, mild respiratory distress and coughing throughout the encounter. HEENT: [place] conjunctiva and NL buccal mucosa Neck: Supple, no tenderness Endocrine: No Thyromegaly. Vascular: No JVD or carotid bruit. Lymphatic: No cervical lymphadenopathy. Chest: Bilateral wheezing and rhonchi throughout. Heart RRR, no extra sound or murmur. Abd: Soft, no tenderness, no rebound and no rigidity. Increase abd girth therefore clinically I could not exclude the possibility of intra abd mass or organomegaly. LE: No cyanosis or clubbing, no varices or edema. Neuro: A A O. Nl speech, comprehension and attention. Nl and symetrical motor and tone examination through out. []] Constitutional Vital Signs, click to edit/add: Last Vital Signs Temp 98.6 F 02/14/25 07:49 Pulse 111 H 02/14/25 07:49 Resp 18 02/14/25 05:08 BP 163/84 H 02/14/25 07:49 Pulse Ox 91 L 02/14/25 07:49 O2 Del Method Room Air 02/14/25 07:49 O2 Flow Rate 1 02/14/25 05:08 Results Labs Labs: Short CBC 02/13/25 02/14/25 Range/Units 16:50 05:03 WBC 6.7 4.3 (4.0-11.0) 10^3/uL Hgb 11.5 L 11.0 L (12.0-16.0) g/dL Hct 34.8 L 34.8 L (36.0-48.0) % Plt Count 215 205 (150-450) 10^3/uL BMP 02/13/25 02/14/25 16:50 05:03 Sodium 139 142 Potassium 4.1 3.3 L Chloride 104 107 Carbon Dioxide 26.3 27.3 BUN 16.0 16.0 Creatinine 0.72 0.56 Glucose 163 H 94 Calcium 8.4 L 8.3 L Assessment and Plan Assessment and Plan (1) Asthma with acute exacerbation: (2) Acute hypoxic respiratory failure: Plan Acute asthma exacerbation. History of asthma since born. Acute influenza bronchitis Acute hypoxic respiratory failure. Saturation 91% on room air associated with tachypnea, using accessory muscles. I had accepted to admit patient to the medical floor. I started her on albuterol, Atrovent, Solu-Medrol. I started her on Tamiflu. Chest x-ray negative. D-dimer is negative therefore the likelihood of PE is less likely. DVT prophylax Lovenox SQ 40 mg twice a day due to weight. Anemia, no evidence of acute blood loss. Likely due to menstruation. is negative Patient will likely require to have anemia workup to be done in the outpatient setting to be handled by PCP in collaboration with other needed outpatient providers. Depression, anxiety, history of seizure Resume preadmission home medications Seizure precaution Telemetry monitoring Hypokalemia Potassium supplementation Magnesium level is normal
[2025-02-14] MEDS: OSELTAMIVIR PHOSPHATE 75 MG CAPSULE PO ×2 (09:24→21:10)
[2025-02-14] MEDS: CARBAMAZEPINE 200 MG TABLET PO ×2 (09:24→21:10)
[2025-02-14] MEDS: POTASSIUM CHLORIDE 10 MEQ ER TABLET 40 MEQ PO (09:24)
[2025-02-14] MEDS: OXYCODONE HCL 5 MG TABLET PO (09:25)
[2025-02-14] MEDS: DESVENLAFAXINE SUCCINATE 50 MG TAB.ER.24H PO (09:25)
[2025-02-14] MEDS: ENOXAPARIN SODIUM 40 MG/0.4 ML SYRINGE SUBQ ×2 (09:25→21:10)
[2025-02-14] MEDS: METHYLPREDNISOLONE SOD SUCC PF 40 MG/ML VIAL IVP ×2 (09:25→17:00)
[2025-02-14] MEDS: IPRATROPIUM/ALBUTEROL SULFATE 3 ML AMPUL.NEB IH ×3 (09:30→21:00)
[2025-02-14] MEDS: ACETAMINOPHEN 325 MG TABLET 650 MG PO (09:30)
[2025-02-14] MEDS: PANTOPRAZOLE SODIUM 40 MG TABLET.DR PO (20:32)
[2025-02-14] MEDS: BACLOFEN 10 MG TABLET PO (21:10)
[2025-02-14] MEDS: MAGNESIUM OXIDE 400 MG TABLET PO (21:10)
[2025-02-15] VITALS (10 sets, daily range): BP systolic 108–109; BP diastolic 66–71; PULSE 85–110; TEMP 36.6; O2SAT 90–93
[2025-02-15] MEDS: METHYLPREDNISOLONE SOD SUCC PF 40 MG/ML VIAL IVP ×2 (01:18→09:06)
[2025-02-15] MEDS: ALBUTEROL SULFATE 2.5 MG/3 ML VIAL NEB IH (04:32)
[2025-02-15] MEDS: IPRATROPIUM/ALBUTEROL SULFATE 3 ML AMPUL.NEB IH (08:29)
[2025-02-15] MEDS: ENOXAPARIN SODIUM 40 MG/0.4 ML SYRINGE SUBQ (09:03)
[2025-02-15] MEDS: PANTOPRAZOLE SODIUM 40 MG TABLET.DR PO (09:03)
[2025-02-15] MEDS: OSELTAMIVIR PHOSPHATE 75 MG CAPSULE PO (09:03)
[2025-02-15] MEDS: DESVENLAFAXINE SUCCINATE 50 MG TAB.ER.24H PO (09:03)
[2025-02-15] MEDS: CARBAMAZEPINE 200 MG TABLET PO (09:03)
--- NOTE | 2025-02-15 09:28 | PM.DS1 ---
DS: Providers Provider Date of admission: 02/14/25 04:05 Primary care physician: Corine Gold ND DS: Diagnosis Discharge Diagnosis (1) Asthma with acute exacerbation: (2) Acute hypoxic respiratory failure: Plan As listed above, below and others that are not listed DS: Summary Hospital Course Hospital Course: Mrs. Nicholson is a 29-year-old female who came in with cough, wheezing and congestion. She was found to have the following: Acute asthma exacerbation. History of asthma since born. Acute influenza bronchitis Acute hypoxic respiratory failure. Saturation 91% on room air associated with tachypnea, using accessory muscles. I had accepted to admit patient to the medical floor. I started her on albuterol, Atrovent, Solu-Medrol. I started her on Tamiflu. Chest x-ray negative. D-dimer is negative therefore the likelihood of PE is less likely. 02/15: Much improved over the last 24 hours. No longer tachypneic or short of breath. Significant improvement and resolution of bilateral wheezing and rhonchi on chest exam. Oxygenation also improved. She is currently 93% on room air. Up to 97% when she is resting comfortably Patient is requesting to be discharged home. Patient will be discharged home on prednisone tapering dose as well as Tamiflu. Patient has inhalers at home. She follows up with applications development consultant in [place] by the name of Effie. DVT prophylax Lovenox SQ 40 mg twice a day due to weight. Anemia, no evidence of acute blood loss. Likely due to menstruation. is negative Patient will likely require to have anemia workup to be done in the outpatient setting to be handled by PCP in collaboration with other needed outpatient providers. Depression, anxiety, history of seizure Resume preadmission home medications Seizure precaution Telemetry monitoring Hypokalemia Potassium supplementation Magnesium level is normal Patient has multiple medical issues as listed above and others that are not listed. All appear to be stable. Patient is feeling great and requesting to be discharged home. At this time, I do not have any clear or strong clinical justification to extend inpatient hospitalization against her will and desire to be discharged home today. Patient however will require close and frequent monitoring as well as additional work-up, investigation and therapeutic intervention that could take place from this point on post discharge. That is to prevent relapse, decompensation, rehospitalization and other medical implications.. I instructed patient to ask her primary care doctor to obtain [facility] record entirely to address abnormalities seen on labs and imaging that I have and have not addressed during this hospitalization, follow-up on pending blood work, imaging and pathology is if available and to follow-up on needed medical care in the outpatient setting. Time Spent with Patient Time attestation: Total time spent providing and/or coordinating discharge services: Exam Narrative Exam Narrative: Patient is much more comfortable than yesterday. She is no longer tachypneic. No longer coughing throughout the interview. Chest exam revealed noticeable improvement of bilateral wheezing or rhonchi. Heart is regular. Abdomen soft. Lower extremities no edema. Constitutional Vital Signs, click to edit/add: Last Vital Signs Temp 97.9 F 02/15/25 07:54 Pulse 91 H 02/15/25 07:59 Resp 20 02/15/25 07:54 BP 108/71 02/15/25 07:54 Pulse Ox 93 L 02/15/25 07:54 O2 Del Method Room Air 02/15/25 07:54 O2 Flow Rate 1 02/14/25 05:08 Discharge Plan Discharge Disposition: Home, Self-Care Condition: Fair Discharge Medications: New oseltamivir 75 mg Capsule 75 mg PO BID Qty: 8 0RF albuterol sulfate 2.5 mg /3 mL (0.083 %) Solution For Nebulization 2.5 mg inhalation Q4H PRN (Reason: Wheez or short of breath) Qty: 90 3RF Continued diazepam 10 mg tablet 5 mg PO QID PRN (Reason: seizures) epinephrine 0.3 mg/0.3 mL auto-injector 0.3 mg IM Q10M PRN (Reason: anaphylaxis) Rx Instructions: for 2 doses albuterol sulfate 90 mcg/actuation HFA aerosol inhaler 2 puff INHALATION Q4H PRN (Reason: shortness of breath or wheezing) magnesium oxide 400 mg (241.3 mg magnesium) tablet 400 mg PO .qhs zolmitriptan 5 mg spray,non-aerosol 1 spray INTRANASAL Q2H PRN (Reason: headache) Rx Instructions: May repeat once if needed after =2 hours diphenhydramine HCl [Benadryl] 25 mg capsule 75 mg PO Q6H PRN (Reason: migraine headache) promethazine 25 mg tablet 25 mg PO Q6H PRN (Reason: nausea and vomiting) Qty: 14 0RF baclofen 10 mg tablet 10 mg PO .QHS desvenlafaxine succinate 50 mg tablet extended release 24 hr 50 mg PO Q24H fluocinolone acetonide oil 0.01 % drops 5 drp OTIC (EAR) BID Dulera 200-5 mcg/actuation HFA aerosol inhaler 2 inh INHALATION Q12H olanzapine 10 mg tablet 10 mg PO .qhs prednisolone acetate 1 % drops,suspension 1 drp OPHTHALMIC (EYE) Q8H Patient Comments: 01/31/25 scopolamine base 1 mg over 3 days patch 3 day 1 patch transdermal Q72H progesterone micronized 100 mg capsule 100 mg PO DAILY Spiriva Respimat 2.5 mcg/actuation mist 2 puff INHALATION QAM tobramycin 0.3 % drops 1 drp ophthalmic (eye) .Q4HWA Rx Instructions: STARTED 01/31/25 FOR 7-10 DAYS omeprazole 40 mg capsule,delayed release(DR/EC) 40 mg PO BID estradiol 1 mg tablet 1 mg PO DAILY carbamazepine 200 mg tablet 200 mg PO Q12H Changed prednisone 20 mg tablet 20 mg PO .as directed Qty: 10 0RF Rx Instructions: Take 1 tablet daily for 5 days then half tablet daily for 5 days Print Language: Portuguese Activity Restrictions/Additional Instructions: I may not have addressed or treated all of your medical illnesses or the abnormal blood work or imaging studies during this hospitalization. Please ask your primary care provider to obtain [facility] records entirely to follow up on all of the abnormal physical, laboratory, and imaging findings that I have not addressed. Please return back to the emergency room or seek medical attention if your symptoms worsen or return. Follow-up with your lung doctor within the next 3 to 4 weeks Discharging you from [facility] does not mean that your medical care ends here and now. You may still need additional monitoring, work up, investigation, and treatment plan to be handled from this point on by out patient providers including your primary care provider and specialists. For any medication question, please contact your retail pharmacist or your primary care provider. Thank you. Forms: Portal Instructions
--- OUTSIDE RECORDS SUMMARY | 2025-02-16 15:11 | XMS_ITS | Patient Health Record ---
Author Organization [facility] in [place] Address [address] [place] [address] Care Team Providers Care Load Out Worker Name Role Phone Lamont Blair MD Primary Care Provider Romeo bradley CasieHeraclio Unavailable [phone] Allergies Allergen (clinical drug ingredient) Drug/Non Drug [...] Oral; Duration: 30 DaysActiveCaplyta 10.5 MGas directed Sulqme4904/19/2023ctive Ketorolac Tromethamine 10 MGtake 1 tablet by [...] Route Administration Date Status Comme nts Flu, (63157) -historic- 3-va lent, Split, Prsrvtve Free, 6-35 [...] W/U Status Risk Notes Problem Plantar wart (59354142) Plantar wart (B07 .0) ActiveconfirmedProblemChronic intractable migraine without aura (729068561427647)Chronic migraine without aura, intractable, with status migrainosus (G43.711)ActiveconfirmedProblemUncomplicated severe persistent asthma (139591445)Severe persistent asthma, uncomplicated (J45.50)Active confirmedProblemContracture of joint of left ankle (disorder) (709348751070628) Contracture, 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)ActiveconfirmedProblemLong-term current use of inhaled steroid (166541504)long-term (current) use of inhaled steroids (Z79.51) ActiveconfirmedProblemMorbid obesity (590696806)Morbid obesity (E66.01)Active confirmedProblemBipolar disorder (06100420)Bipolar disorder (F31.9)Active confirmedProblemReactive airway disease (544081003764)Reactive airway disease (J45.909)ActiveconfirmedProblemIntractable migraine (504339326)Intractable migraine (G43.919)ActiveconfirmedProblemTobacco use (913392729)Vapes nicotine containing substance (Z72.0)ActiveconfirmedProblemBody mass index 40+ - severely obese (857555090)Body mass index [BMI] 45.0-49.9, adult (Z68.42)Activeconfirmed ProblemPeripheral eosinophilia (D72.19)Activeconfirmed Encounters Encounter Location Date Provider Diagnosis Pulmonary Medicine [address] [address] 03/19/2024 [facility] Plan Of Treatment No Information Insurance Providers Payer Name Payer Address Payer Phone Subscriber Number Group Number Insured Name Patient Relationship to Insured Coverage Start Date Coverage End Date [employer] [place] [employer] [address] [place] [address] [id number] Adam Nicholsonelf - patient is the [id number] 2022 Medical (General) History Medical History History ICD Code asthma migraine headachesseizuresLeft foot painM79.672Severe persistent asthma, uncomplicatedPeripheral eosinophiliaVapes nicotine containing substanceLong term (current) use of inhaled steroidsMorbid obesityPseudoseizuresPCOS (polycystic ovarian syndrome)OMID (generalized anxiety disorder)Bipolar disorder, mixed Surgical History Surgery Date(Month/Year) appendectomy hysterectomytubal ligationcesarean sectioncholecystectomydiagnostic laparoscopy hysterectomy, total with bilateral salpingo-oophorectomy (BSO)diagnostic lap tubal ligationc-section [id number] repairHospitalization History Reason Date(Month/Year) Acute Exacerbation of Asthma-[facility] 023 Acute Exacerbation of Asthma-[facility] 024
--- OUTSIDE RECORDS SUMMARY | 2025-02-16 15:11 | XMS_ITS | Clinical Summary ---
Author Organization [facility] Address [address] [place] [address] Care Team Providers Care Regulatory Affairs Strategy Specialist Name Role Phone Unavailable Primary Care Provider Unavailabl e Allergies Active AllergyReactionsCriticalityNoted DulrZhmsiwevCvzmkbwygvmz01/12/2023Bee EmvtpLhaovct02/05/6228XqhyfpwcmFpfzdRfe31/17/9973OuhlwyemevgptSuflwpi37/04/2021 anxiety CephalexinHives,RahyEqx9012/08/20165759HruttamcclriwJeegh19/23/2023larithromycinGI bxddsrulbse31/16/7241EpcmrznzsuoFwggsws35/06/3844VgocjpiwgvafuguxCivpu65/23/2023 Dextromethorphan-OchqshowbmIffgq44/18/2022DihydroergotamineGI intoleranceMedium 07/27/2022 Chest tightness, numbness and tingling in bilateral extremities, increased anxiety CflqsixewkjsvJbysfef72/22/2023MetoclopramideHives,Unknown,OaabEkc6212/08/2016Other Hives1011XrtfltesvopTpmmm27/04/2021 Migrianes RhusdlgnheyqKikze41/17/2022 Other Reaction(s): intolerance to med Wound Dressing OsltmrdxSczqCmtjml12/19/2017 Medications MedicationSigDispense QuantityRefillsLast FilledStart DateEnd DateStatus promethazine (Phenergan) 25 MG suppository Insert 25 mg into the rectum every 6 (six) hours if needed for nausea or vomitingActive Acetaminophen Extra Strength 500 MG tablet Take 500 mg by mouth every 6 (six) hours if needed (pain)5Active albuterol (2.5 MG/3ML) 0.083% nebulizer solution Inhale 2.5 mg 4 (four) times a day as samkud845Active albuterol HFA 90 mcg/act inhaler Inhale 2 puffs every 4 (four) hours if vmdsno9805/27/2024tive amitriptyline (Elavil) 100 MG tablet Take 100 mg by mouth at ljfzkjo4106/24/2024tive baclofen (Lioresal) 10 MG tablet Take 10 mg by mouth at bedtimeActive chlorzoxazone (Parafon Forte) 500 MG tablet Take 500 mg by mouth 2 (two) times a day as needed for muscle kjwksc4405/31/2024 Active diazePAM (Valium) 10 MG tablet Take [...] Take 10 mg by mouth Daily as ylewts5506/06/2024tive omeprazole (PriLOSEC) [address] capsule Take [...] CT. Referred to GI. Intractable nausea and cbiahony20/19/2024 Assessment & Plan (02/09/2024 12:19 PM EST): [...] lasix PRN. SOB (shortness of breath) on euqewphf18/03/2024 Assessment & Plan (01/23/2024 1:55 PM EST): Severe symptom and check CXR. Use albuterol PRN and start prednisone. Pain, geedqr9401/09/2024 Assessment & Plan (01/09/2024 10:07 AM EST): Broken tooth and follow with dentist. Gargle with warm salt water. Start ultram PRN. Dsrantk9401/01/2024 Assessment & Plan (01/09/2024 10:08 AM EST): Possibly related to bipolar. Check labs. Encounter for long-term (current) use of gvntktwgcmi48/11/2024Mild persistent asthma with (acute) riqmfdlgjxxe87/20/2024 Assessment & Plan (02/09/2024 12:19 PM EST): [...] Continue medications as prescribed. Mixed bipolar I /05/2023 Assessment & Plan (01/09/2024 10:07 AM EST): Denies worsening symptoms and follow with specialists Assessment & Plan (11/15/2023 9:45 AM EDT): Follow with specialists Chronic migraine without aura without status migrainosus, not intractable 01/24/2023 Assessment & Plan (01/09/2024 10:08 AM EST): PINEDA worse and follow with specialists. Generalized anxiety sdhfobaa11/05/2023ersistent disorder of initiating or maintaining sleep01/24/2023Mild persistent rqabvi0401/24/2023 Assessment & Plan (03/21/2023 12:36 PM EST): Continued symptoms and check PFTs. Refer to pulmonology. Use albuterol PRN. Polycystic mdothvj7801/24/2023sychogenic nonepileptic jushmtg4001/24/2023elvic pain in gdnivs4812/19/2022 Resolved Problems ProblemNoted DateDiagnosed DateResolved DateAcute bronchitis due to other specified nuurvdbdn43 Assessment & Plan (11/15/2023 9:42 AM EDT): [...] negative check US.Use ultram PRN. Encounters DateTypeDepartmentCare FguzGqxrqfeuwwl32/22/2025Telephone [facility] [address] [place] [address] [place] [address] Ammy Carrington MA from Last 3 Months Family History Medical HistoryRelationNameCommentsChromosomal disorderDaughter 2Epididymitis Daughter 2AsthmaFatherHeart diseaseFatherAllergiesMotherAsthmaMotherDiabetes MotherDiabetes insipidusMotherMental illnessSon 1Mental illnessSon 2RelationName StatusCommentsDaughter 1AliveDaughter 2AliveFatherAliveMotherAliveSister 1Alive Sister 2AliveSister 3AliveSon 1AliveSon 2Alive Social History Tobacco UseTypesPacks/DayYears UsedDateSmoking Tobacco: NeverPassive Smoke Exposure: NeverSmokeless Tobacco: Never Tobacco Cessation:Counseling Given: Not Answered Alcohol UseStandard Drinks/WeekCommentsNever0 (1 standard drink = 0.6 oz pure alcohol)Caffeine intake: >4 cups per oepD2171 Health LiteracyAnswerDate Recorded How often do you [...] relatives?Twice a week01/23/2024How often do you attend presybeterian or protestant services?More than 4 times per year01/23/2024o you belong to any clubs or organizations such as presybeterian groups, unions, fraternal or athletic donta ups, or school groups?Yes01/23/2024How often do you attend meetings of the clubs or organizations you belong to?More than 4 times per year01/23/2024re you , , , , never , or living with a partner? Living with mwkodkb5601/23/2024UDIT-CAnswerDate RecordedQ1: How often do you have a [...] and heating?Not very hard01/23/2024HQ-2AnswerDate RecordedPatient Health Questionnaire-2 Ylpnv032Finencompass health [place] of Occupational Health - Occupational Stress QuestionnaireAnswerDate [...] from medical appointments or from getting medications?Patient fqiftwxk04/03/2024In the past 12 months, has lack of [...] living in a long term (including now)?No 01/23/2024CommentsNoSex and Gender InformationValueDate RecordedSex Assigned at BirthNot on fileLegal YhgXhodex84/15/2023 7:02 PM EDTGender Identity Not on fileSexual OrientationNot on file Last Filed Vital Signs Vital SignReadingTime TakenCommentsBlood Garfogxt289/3998809/03/2024 10:33 AM EDT Kvgkm27877/20/2024 10:38 AM LRAHwmahwfcnpk59.7 ??C (98 ??F)02/09/2024 10:38 AM ESTRespiratory Kglg689504/11/2023 10:38 AM ESTOxygen Dktthyrzut16%02/09/2024 10:38 AM ESTInhaled Oxygen Concentration--Veurbz221 kg (268 lb 8 oz)09/03/2024 10:33 AM DEDMbvfqq923.9 cm (5' 1 )02/09/2024 10:38 AM ESTBody Mass Index50.73 02/09/2024 10:38 AM EST Plan of Treatment Health MaintenanceDue DateLast DoneCommentsPneumococcal Vaccine: Pediatrics (0 to 5 Years) and At-Risk Patients (6 to 64 Years) (1 of 2 - PCV)11/13/2014 Influenza Vaccine (#1), 12/31/2015, 11/27/2014, Additional history exists Insurance
--- OUTSIDE RECORDS SUMMARY | 2025-02-16 15:11 | XMS_ITS | Clinical Summary ---
Author Organization [facility] Address [address] [place] [address] Care Team Providers Care Marketing Budget Analyst Name Role Phone Abdifatah Brady (Historical) Primary Care Provide r Unavailable Allergies Active AllergyReactionsCriticalityNoted DateCommentsAdhesive Tape-SiliconesRash 12/03/2021zithromycinOther: See Hwtlztrc28/14/2022ihydroergotamineIntolerance Szlihx3207/27/2022 Chest tightness, numbness and tingling in bilateral extremities, increased anxiety UzpxfrczpgLnwk26/14/0323QkmnfzdazyzxjCeowrun69/22/2023rochlorperazine EexumswntnpPkk00/08/2024ropranololHives,Other: See Bidjnhdq68/31/2021 Migrianes Pyrilamine-NyjzorvduhzdawtjHoaps70/18/1516KiuhovslpawfmwMixelqybtoq50/14/2022 BgetvjepsagnTwoqg84/17/2022 Medications MedicationSigDispense QuantityRefillsLast FilledStart DateEnd DateStatus diazePAM [...] migraine, so stated, with status migrainosusUse 1 [place] in the nose as needed at onset [...] 5 mg nasal spray Use 1 [place] in the nose as needed at onset [...] chronic migraine without aura and without status dlctaufdbnu06/30/2024hronic migraine without aura, with intractable migraine, so stated, with status bmzekgmgjbh35/31/2024Intractable chronic migraine without aura and with status ywgtkuymyha60/05/2023Seizure-like chzuwmbs10/10/2023sychogenic nonepileptic cbtygnn8410/20/2021 Encounters DateTypeDepartmentCare YmvbPxlyotftcaa19/22/2025Refill Neurology Headache [facility] [address] [place] [address] Griffin Lepe PA-C Refill Zykcmjt5801/29/2025 Patient Msg Neurology [address] [place] [address] Lorena Guido APRN.COLLECTIONS AGENT Nasal Spray01/24/2025 11:00 AM ESTOffice Visit Neurology [address] [place] [address] Lorena Guido APRN.COLLECTIONS AGENT Chronic migraine without aura, with intractable migraine, so stated, with status migrainosus (Primary Dx); Intractable chronic migraine without aura and without status migrainosus; Intractable chronic migraine without aura and with status migrainosus; Kkqvxq6301/24/2025 10:30 AM ESTInfusion Center Neurology [address] [place] [address] Chronic migraine without aura, with intractable migraine, so stated, with status migrainosus (Primary Dx); Intractable chronic migraine without aura and with status /04/2025 10:30 AM ESTInfusion Center Neurology [address] [place] [address] Chronic migraine without aura, with intractable migraine, so stated, with status migrainosus (Primary Dx); Intractable chronic migraine without aura and with status iekofdhatqn32/03/2025 1:00 PM ESTOffice Visit Neurology [address] [place] [address] SCIENTIST.COLLECTIONS AGENT APPOINTMENT CANCELLED (Primary Dx)01/22/2025 11:30 AM ESTInfusion Center Neurology [address] [place] [address] Chronic migraine without aura, with intractable migraine, so stated, with status migrainosus (Primary Dx); Intractable chronic migraine without aura and with status cfmushnrkcp31/24/2025 Patient Msg Neurology [address] [place] [address] Provider, Ccf HEADACHE YSSAZDJCI48/20/2025 12:[address] [facility] Neurology Headache [facility] [address] [place] [address] Raiza Morales APRN.COLLECTIONS AGENT Intractable chronic migraine without aura and with status migrainosus (Primary Dx)01/09/20254655Idkiwu87/09/2025Refill Neurology Headache [facility] [address] [place] [address] Griffin Lepe PA-C Refill Ujnttpa4312/13/2024 1:30 PM EDTOffice Visit Neurology [address] [place] [address] Griffin Lepe PA-C Intractable chronic migraine without aura and with status migrainosus (Primary Dx)12/13/2024 8:30 [facility] [address] [place] [address] Chronic migraine without aura, with intractable migraine, so stated, with status migrainosus (Primary Dx); Intractable chronic migraine without aura and with status kcpwhvitjuj24/23/2025 10:00 AM EDTInfusion Center Neurology [address] [place] [address] Chronic migraine without aura, with intractable migraine, so stated, with status migrainosus (Primary Dx); Intractable chronic migraine without aura and with status zseipyhoada10/23/2025 9:00 AM EDTOffice Visit Neurology [address] [place] [address] Basil Cornelius DO Intractable chronic migraine without aura and without status migrainosus (Primary Dx); Cervicalgia; Chronic migraine without aura, with intractable migraine, so stated, with status migrainosus; Intractable chronic migraine without aura and with status nolfpdafkpy70/23/2025 Patient Msg Neurology [address] [place] [address] Basil Cornelius DO Wpcbzhgz29/22/2025 9:30 AM EDM[facility] Neu[facility] [address] [place] [address] Intractable chronic migraine without aura and without status migrainosus (Primary Dx)11/26/2024 1:45 PM [facility]TBl[facility] [address] [place], [place] [address] Raiza Morales, UMANG.FADY Intractable chronic migraine without aura and with status yppzznrwuva80/07/2025 Patient Msg Neurology [address] [place] [address] Provider, Ccporsche Vyepti Xgtlqmwm66/07/2025Travelfrom Last 3 Months Social History Tobacco UseTypesPacks/DayYears UsedDateSmoking Tobacco: NeverSmokeless Tobacco: Never Tobacco Cessation:Counseling Given: Not Answered PHQ-2AnswerDate RecordedPHQ-2 fwtgc26803/11/2024rea Deprivation IndexAnswerDate RecordedNational Score (1-100), lower number is lower gpcb943606/23/2022State Score (1-10), lower number is lower tuys30406/23/2022ata from: https://www.neighborhoodatlas.medicine.[facility] [place].[facility]/. Last address used for xsadkjewurd[address]/23/2022CommentsNoSex and Gender Information ValueDate RecordedSex Assigned at BirthNot on fileLegal IzyQhhius05/01/2014 10:32 AM EDTGender IdentityNot on fileSexual OrientationNot on file Last Filed Vital Signs Vital SignReadingTime TakenCommentsBlood Flhdktgb787/80103/27/2024 12:30 PM EST Kqgcy29504/05/2025 12:30 PM GTLExmyydzrgog64.3 ??C (97.3 ??F)01/19/2024 10:00 AM ESTRespiratory Qyfb809404/01/2022 4:00 PM ESTOxygen Ewgsqlozvl32%01/22/2024 1:35 PM ESTon room airInhaled Oxygen Concentration--Snwekr148 kg (282 lb 3 oz) 12/12/2024 8:58 AM RCXLvtcwg708.4 cm (5' 2.36 )09/19/2023 2:22 PM EDTBody Mass Index51.02009/19/2023 2:22 PM EDT Plan of Treatment DateTypeDepartmentCare Team (Latest Contact Info)Gciwxufgkvy65/16/2026 9:30 AM ESTInfusion Center Neurology [address] [place] [id number] vyeptiHealth MaintenanceDue DateLast DoneCommentsAnxiety Vxpucirqk39/24/2014 Depression Eocpafdlk09/24/2014HIV Wokyamwlo23/24/2014Hepatitis C Screening 11/13/2013Cervical Cancer Dkbdwagtj24/24/2017Covid-19 Vaccine ( season)2024Influenza Vaccine (#1)51, 12/31/2015, 11/27/2014, Additional history existsDTaP,Tdap,Td Vaccine (8 - Td or Tdap) 6009/21/2015, 10/24/2013, 09/07/2001, Additional history existsHepatitis B GjpenrmJrqmitsll91/05/2003, 05/06/1996, 1995, Additional history exists HPV HjkfwsbHmtdujkmr47/02/2013, 01/20/2012, 11/15/[address] [place] [id number] Care Teams Team MemberRelationshipSpecialtyStart DateEnd Date Abdifatah Brady (Historical) PCP - General05/21/13
--- OUTSIDE RECORDS SUMMARY | 2025-02-16 15:12 | XMS_ITS | Encounter Summary ---
Author Organization [facility] Address [facility] [place] [address] [place] [address] Care Team Providers Care Hotel Engineer Name Role Phone Corine Gold MD Primary Care Provider [phone] Encounter Details DateTypeDepartmentCare Team (Latest Contact Info)Jjsbrjaacgq90/23/2025Telephone [facility] [address] [address] Malia Mason RN Social History Tobacco UseTypesPacks/DayYears UsedDateSmoking Tobacco: NeverSmokeless Tobacco: NeverAlcohol UseStandard Drinks/WeekCommentsNot Currently0 (1 standard drink = 0.6 oz pure alcohol)socialST. ANTHONY'S HOSPITAL UtilitiesAnswerDate RecordedIn the past 12 months has the electric, gas, oil, or water [employer] threatened to shut off services in your [...] care, and heating?Not hard at all04/08/2024PHQ-2AnswerDate RecordedTotal Flfml684PRAPARE - TransportationAnswerDate RecordedIn the past 12 months, [...] a part of a household?No5ChildcareAnswerDate RecordedChildcareUnknown 08/01/2018EmploymentAnswerDate AlmweswsGspujalfjoXhlvqbj21/12/2019Hunger ScreeningAnswerDate RecordedWithin the past 12 months we worried whether our food would run out before we got money to buy more.Never True01/11/2025Within the past 12 months the food we bought just didn't last and we didn't have money to get more.Never True01/11/2025Purpose - LifeAnswerDate RecordedPurpose and direction in ggibRpzuzvm06/12/2021CommentsNoSex and Gender Information ValueDate RecordedSex Assigned at BirthNot on fileLegal YumQzfywn71/06/2015 11:52 AM EDTGender IdentityNot on fileSexual OrientationNot on filedocumented as of this encounter Miscellaneous Notes * Telephone Encounter - Malia Mason RN - 02/11/2025 8:11 AM EST Images from the original note were not included. Campus Coordinator spoke to patient and informed per Dr Peña's office note on 12-17-24, patient was referred to GI for uncontrolled reflux which is contributing to her asthma. Patient reports she did not contact GI. Campus Coordinator encouraged patient to contact GI and schedule an appt. Instructions and phone number provideed. Will fill script until appt with Dr Peña on 03-25-25. Hopefully patient obtains an appt before then. Patient agreeable documented in this encounter Plan of Treatment DateTypeDepartmentCare Team (Latest Contact Info)Aixhbubuvni06/ 8:30 AM ESTOffice Visit [facility] [address] [place] [address] [place] [phone] Rajinder Cotton, DO [address] [facility], [address], [address] [place], [place] [phone] 03/25/2025 9:45 AM ESTOffice Visit [facility] [address] [phone] Mariah Peña, DO [address] [phone] documented as of this encounter Goals GoalPatient Goal TypeAssociated ProblemsRecent ProgressPatient-Stated?Author home Tamiko Thompson RN Note: Evaluation of progress towards goal: Patient stated goal is to return home with [facility] for assistance with wound care documented as of this encounter Visit Diagnoses Not on filedocumented in this encounter Additional Health Concerns AssessmentNoted TimePHQ-9 Depression Total Score: 10:01 AM EDTA Body Mass Index follow-up plan has been documented for the xhwnmro8112/20/2024 1:20 PM EDTdocumented as of this encounter Care Teams Team MemberRelationshipSpecialtyStart DateEnd Date Corine Gold MD [address] [facility] [place] [address] PCP - GeneralFamily Prwelgny40/22/25documented as of this encounter
--- OUTSIDE RECORDS SUMMARY | 2025-02-16 15:12 | XMS_ITS | Encounter Summary ---
Author Organization [facility] Address [facility] [id number] [address] [place] [address] Care Team Providers Care Construction Checker Name Role Phone Corine Gold MD Primary Care Provider [phone] Encounter Details DateTypeDepartmentCare Team (Latest Contact Info)Yxqnhcspnji76/22/2025[facility]ill [facility] [address] [place] [address] [place] [address] Saba Carter N, DISHWASHING MACHINE OPERATOR-ROTARY DRILL OPERATOR HELPER [address] [place] [address] Moderate persistent asthma without complication; Seasonal allergic rhinitis, unspecified trigger; Watery eyes Social History Tobacco UseTypesPacks/DayYears UsedDateSmoking Tobacco: NeverSmokeless Tobacco: NeverAlcohol UseStandard Drinks/WeekCommentsNot Currently0 (1 standard drink = 0.6 oz pure alcohol)[facility] UtilitiesAnswerDate RecordedIn the past 12 months has the [employer], [employer], oil, or water [employer] threatened to shut off services in your [...] care, and heating?Not hard at all04/08/2024PHQ-2AnswerDate RecordedTotal Qljwh937PRAPARE - TransportationAnswerDate RecordedIn the past 12 months, [...] a part of a household?No04/08/2024hildcareAnswerDate RecordedChildcareUnknown 08/01/2018EmploymentAnswerDate FksceufiWaknajqudiFlagevw34/12/2019Hunger ScreeningAnswerDate RecordedWithin the past 12 months we worried whether our food would run out before we got money to buy more.Never True01/11/2025Within the past 12 months the food we bought just didn't last and we didn't have money to get more.Never True01/11/2025Purpose - LifeAnswerDate RecordedPurpose and direction in rmxmEhwxlak76/12/2021CommentsNoSex and Gender Information ValueDate RecordedSex Assigned at BirthNot on fileLegal PkpWfxymn91/06/2015 11:52 AM EDTGender IdentityNot on fileSexual OrientationNot on filedocumented as of this encounter Plan of Treatment DateTypeDepartmentCare Team (Latest Contact Info)Ffzuvbqxjet65/30/2025 8:30 AM ESTOffice Visit [facility] [address] [place] [address] [place] [address] Rajinder Cotton, [address] [place] [address], [address], [place] [address] 03/25/2025 9:45 AM ESTOffice Visit [facility] [address] [place] [phone] Mariah Peña, DO [address] [address] documented as of this encounter Goals GoalPatient Goal TypeAssociated ProblemsRecent ProgressPatient-Stated?Author home Tamiko Thompson RN Note: Evaluation of progress towards goal: Patient stated goal is to return home with [facility] for assistance with wound care documented as of this encounter Visit Diagnoses Diagnosis Moderate persistent asthma without complication Seasonal allergic rhinitis, unspecified trigger Watery eyes Epiphora, unspecified as to cause documented in this encounter Additional Health Concerns AssessmentNoted TimePHQ-9 Depression Total Score: 10:01 AM EDTA Body Mass Index follow-up plan has been documented for the cpjamto5112/20/2024 1:20 PM EDTdocumented as of this encounter Care Teams Team MemberRelationshipSpecialtyStart DateEnd Date Corine Gold MD [address] [place] [address] PCP - GeneralFamily Qffdkkfi51/22/25documented as of this encounter
--- OUTSIDE RECORDS SUMMARY | 2025-02-16 15:12 | XMS_ITS | Encounter Summary ---
Author Organization [facility] Address [facility] [id number] [address] [place] [address] Care Team Providers Care Health Informatics Advisor Name Role Phone Corine Gold MD Primary Care Provider Encounter Details DateTypeDepartmentCare Team (Latest Contact Info)Tfifyumicqh18/22/2025Refill [facility] [address] [facility] [place] [address] Mali Hart, UMANG-BAKELITE MOLDER [address] [place], [place] [address] Allergic reaction, sequela Social History Tobacco UseTypesPacks/DayYears UsedDateSmoking Tobacco: NeverSmokeless Tobacco: NeverAlcohol UseStandard Drinks/WeekCommentsNot Currently0 (1 standard drink = 0.6 oz pure alcohol)[facility] UtilitiesAnswerDate RecordedIn the past 12 months has the [employer], gas, oil, or water [employer]People threatened to shut off services in your [...] care, and heating?Not hard at all04/08/2024PHQ-2AnswerDate RecordedTotal Fekum792PRAPARE - TransportationAnswerDate RecordedIn the past 12 months, [...] a part of a household?No04/08/2024hildcareAnswerDate RecordedChildcareUnknown 08/01/2018EmploymentAnswerDate NkleyqvxCptfejfkkjOchwjkl57/12/2019Hunger ScreeningAnswerDate RecordedWithin the past 12 months we worried whether our food would run out before we got money to buy more.Never True01/11/2025Within the past 12 months the food we bought just didn't last and we didn't have money to get more.Never True01/11/2025Purpose - LifeAnswerDate RecordedPurpose and direction in rrzzKsgrcby54/12/2021CommentsNoSex and Gender Information ValueDate RecordedSex Assigned at BirthNot on fileLegal IgwXulyaq55/06/2015 11:52 AM EDTGender IdentityNot on fileSexual OrientationNot on filedocumented as of this encounter Plan of Treatment DateTypeDepartmentCare Team (Latest Contact Info)Dlzoumakyxf71/30/2025 8:30 AM ESTOffice Visit [facility] [address] [place] [address] [place] [address] Rajinder Cotton, DO [address] [facility], [address], [place] [address] 03/25/2025 9:45 AM ESTOffice Visit [facility] [address] [address] Mariah Peña, DO [address] [address] documented as of this encounter Goals GoalPatient Goal TypeAssociated ProblemsRecent ProgressPatient-Stated?Author home Tamiko Thompson RN Note: Evaluation of progress towards goal: Patient stated goal is to return home with [facility] for assistance with wound care documented as of this encounter Visit Diagnoses Diagnosis Allergic reaction, sequela documented in this encounter Additional Health Concerns AssessmentNoted TimePHQ-9 Depression Total Score: 10:01 AM EDTA Body Mass Index follow-up plan has been documented for the ltnashi8912/20/2024 1:20 PM EDTdocumented as of this encounter Care Teams Team MemberRelationshipSpecialtyStart DateEnd Date Corine Gold MD [address] [place] [address] PCP - GeneralFamily Bvqxdvtr62/22/25documented as of this encounter
--- OUTSIDE RECORDS SUMMARY | 2025-02-16 15:12 | XMS_ITS | Encounter Summary ---
Author Organization [facility] Address [facility] [place] [place]-[id number] [address] [place] [address] Care Team Providers Care Skidder Loader Name Role Phone Corine Gold MD Primary Care Provider [phone] Encounter Details DateTypeDepartmentCare Team (Latest Contact Info)Hkkbwznohzs74/22/2025Refill [facility] [address] [address] Mariah Peña DO [address] [address] Moderate asthma with acute exacerbation, unspecified whether persistent; Gastroesophageal reflux disease without esophagitis; Moderate persistent asthma without complication; Moderate persistent asthma, unspecified whether complicated Social History Tobacco UseTypesPacks/DayYears UsedDateSmoking Tobacco: NeverSmokeless Tobacco: NeverAlcohol UseStandard Drinks/WeekCommentsNot Currently0 (1 standard drink = 0.6 oz pure alcohol)[facility] UtilitiesAnswerDate RecordedIn the past 12 months has the [employer], gas, oil, or water [employer] threatened to shut off services in your [...] care, and heating?Not hard at all04/08/2024PHQ-2AnswerDate RecordedTotal Bidhx647PRAPARE - TransportationAnswerDate RecordedIn the past 12 months, [...] a part of a household?No04/08/2024hildcareAnswerDate RecordedChildcareUnknown 08/01/2018EmploymentAnswerDate WwfmnyenLvcnhxazvuOpdsxej89/12/2019Hunger ScreeningAnswerDate RecordedWithin the past 12 months we worried whether our food would run out before we got money to buy more.Never True01/11/2025Within the past 12 months the food we bought just didn't last and we didn't have money to get more.Never True01/11/2025Purpose - LifeAnswerDate RecordedPurpose and direction in tzmbLdmdpyk28/12/2021CommentsNoSex and Gender Information ValueDate RecordedSex Assigned at BirthNot on fileLegal DmxSjnczl81/06/2015 11:52 AM EDTGender IdentityNot on fileSexual OrientationNot on filedocumented as of this encounter Plan of Treatment DateTypeDepartmentCare Team (Latest Contact Info)Jmfjcdowtgp69/30/2025 8:30 AM ESTOffice Visit [facility] [address] [place] [address] [place] [address] Rajinder Cotton, DO 605 [facility], [address], [place] [address] 03/25/2025 9:45 AM ESTOffice Visit [facility] [address] [phone] Mariah Peña, [address] [address] documented as of this encounter Goals GoalPatient Goal TypeAssociated ProblemsRecent ProgressPatient-Stated?Author home Tamiko Thompson RN Note: Evaluation of progress towards goal: Patient stated goal is to return home with [facility] for assistance with wound [...] follow-up plan has been documented for the acgcxiy8812/20/2024 1:20 PM EDTdocumented as of this encounter Care Teams Team MemberRelationshipSpecialtyStart DateEnd Date Corine Gold MD [address] [place] [address] PCP - GeneralFamily Xfjfqrzi49/22/25documented as of this encounter
--- OUTSIDE RECORDS SUMMARY | 2025-02-16 15:12 | XMS_ITS | Encounter Summary ---
Author Organization [facility] tem Address [facility][id number] [address] [place] [address] Care Team Providers Care Oracle Programmer Name Role Phone Corine Gold MD Primary Care Provider [phone] Encounter Details DateTypeDepartmentCare Team (Latest Contact Info)Lodvbitfhxt73/22/2025Refill [facility] Gynecology Oncology, A Department of [facility] [address] [place] [address] Svetlana Ye PA [address] [place] [address] Post-op pain; Post-operative pain Social History Tobacco UseTypesPacks/DayYears UsedDateSmoking Tobacco: NeverSmokeless Tobacco: NeverAlcohol UseStandard Drinks/WeekCommentsNot Currently0 (1 standard drink = 0.6 oz pure alcohol)[facility] UtilitiesAnswerDate RecordedIn the past 12 months has the [employer], gas, oil, or water [employer] threatened to shut off services in your [...] care, and heating?Not hard at all04/08/2024PHQ-2AnswerDate RecordedTotal Ghzff361PRAPARE - TransportationAnswerDate RecordedIn the past 12 months, [...] a part of a household?No04/08/2024hildcareAnswerDate RecordedChildcareUnknown 08/01/2018EmploymentAnswerDate KtfgoajzZmpyxizhmlUvjwviw32/12/2019Hunger ScreeningAnswerDate RecordedWithin the past 12 months we worried whether our food would run out before we got money to buy more.Never True01/11/2025Within the past 12 months the food we bought just didn't last and we didn't have money to get more.Never True01/11/2025Purpose - LifeAnswerDate RecordedPurpose and direction in sdsnFnpkiac14/12/2021CommentsNoSex and Gender Information ValueDate RecordedSex Assigned at BirthNot on fileLegal CetVxfbqd74/06/2015 11:52 AM EDTGender IdentityNot on fileSexual OrientationNot on filedocumented as of this encounter Plan of Treatment DateTypeDepartmentCare Team (Latest Contact Info)Xqcdyfmapoi45/30/2025 8:30 AM ESTOffice Visit [facility] [address] [place] [address] [place] [address] Rajinder Cotton, DO 605 [facility], [address], [place] [address] 03/25/2025 9:45 AM ESTOffice Visit [facility] [address] [place] [address] Mariah Peña, DO [address] [address] documented as of this encounter Goals GoalPatient [...] follow-up plan has been documented for the xwfvrdq2412/20/2024 1:20 PM EDTdocumented as of this encounter Care Teams Team MemberRelationshipSpecialtyStart DateEnd Date Corine Gold MD [address] [place] [address] PCP - GeneralFamily Uomhyfwu01/22/25documented as of this encounter
--- OUTSIDE RECORDS SUMMARY | 2025-02-16 15:12 | XMS_ITS | Clinical Summary ---
Author Organization [facility] Address [address] [facility] [address] Care Team Providers Care Assistant Store Manager Sales Name Role Phone Corine Glod MD Primary Care Provider Unavail able Social History Tobacco UseTypesPacks/DayYears UsedDateSmoking Tobacco: Never Assessed CommentsUnknownSex and Gender InformationValueDate RecordedSex Assigned at Not on fileLegal LzpJshfho36/11/2020 3:05 PM EDTGender IdentityNot on fileSexual OrientationNot [...] Gold MD [address] [place] [address] [facility]/11/24
--- OUTSIDE RECORDS SUMMARY | 2025-02-16 15:12 | XMS_ITS | Encounter Summary ---
Author Organization [facility] tem Address [id number] [address] [place] [address] Care Team Providers Care Master Brewer Name Role Phone Corine Gold MD Primary Care Provider Encounter Details DateTypeDepartmentCare Team (Latest Contact Info)Rijnsxwvqcn13/22/2025[facility] [address] [place] [address] [place] [address] Saba Carter N, ASSISTANT STORE MANAGER SALES-SALES OFFICER [address] [place] [address] Moderate persistent asthma without complication; Seasonal allergic rhinitis, unspecified trigger; Watery eyes Social History Tobacco UseTypesPacks/DayYears UsedDateSmoking Tobacco: NeverSmokeless Tobacco: NeverAlcohol UseStandard Drinks/WeekCommentsNot Currently0 (1 standard drink = 0.6 oz pure alcohol)[facility] UtilitiesAnswerDate RecordedIn the past 12 months has the [employer], [employer], oil, or water [employer] threatened to shut off services in your [...] care, and heating?Not hard at all04/08/2024PHQ-2AnswerDate RecordedTotal Fgtkl368PRAPARE - TransportationAnswerDate RecordedIn the past 12 months, [...] a part of a household?No04/08/2024hildcareAnswerDate RecordedChildcareUnknown 08/01/2018EmploymentAnswerDate XtgqvojsXoswszsaqvXedevqk40/12/2019Hunger ScreeningAnswerDate RecordedWithin the past 12 months we worried whether our food would run out before we got money to buy more.Never True01/11/2025Within the past 12 months the food we bought just didn't last and we didn't have money to get more.Never True01/11/2025Purpose - LifeAnswerDate RecordedPurpose and direction in gdtzFlginjr41/12/2021CommentsNoSex and Gender Information ValueDate RecordedSex Assigned at BirthNot on fileLegal RidNwmxtp57/06/2015 11:52 AM EDTGender IdentityNot on fileSexual OrientationNot on filedocumented as of this encounter Plan of Treatment DateTypeDepartmentCare Team (Latest Contact Info)Revdvocoocr57/30/2025 8:30 AM ESTOffice Visit [facility] [address] [place] [address] [place] [address] Rajinder Cotton, [address] [place] [address], [address], [place] [address] 03/25/2025 9:45 AM ESTOffice Visit [facility] [address] [place] [phone] Mariah Peña, DO [address] [address] documented as of this encounter Goals GoalPatient Goal TypeAssociated ProblemsRecent ProgressPatient-Stated?Author home Tamiko Thompson RN Note: Evaluation of progress towards goal: Patient stated goal is to return home with [facility] for assistance with wound care documented as of this encounter Visit Diagnoses Diagnosis Moderate persistent asthma without complication Seasonal allergic rhinitis, unspecified trigger Watery eyes Epiphora, unspecified as to cause documented in this encounter Additional Health Concerns AssessmentNoted TimePHQ-9 Depression Total Score: 10:01 AM EDTA Body Mass Index follow-up plan has been documented for the dbxfsrs5212/20/2024 1:20 PM EDTdocumented as of this encounter Care Teams Team MemberRelationshipSpecialtyStart DateEnd Date Corine Gold MD [address] [place] [address] PCP - GeneralFamily Hklzsmia30/22/25documented as of this encounter
--- OUTSIDE RECORDS SUMMARY | 2025-02-16 15:12 | XMS_ITS | Encounter Summary ---
Author Organization [facility] tem Address [id number] [address] [place] [address] Care Team Providers Care Data Warehousing Manager Name Role Phone Corine Gold MD Primary Care Provider [phone] Reason for Referral * Medication Prior Authorization - ClosedSpecialtyDiagnoses / ProceduresReferred By ContactReferred To Contact Diagnoses Allergic reaction, sequela Mali Hart APRN-CNP [address] [place] [address] Phone: tel: fax: Referral IDStatusReasonStart DateExpiration DateVisits RequestedVisits [id number] Reason for Visit * ReasonOnset DateCommentsMed Gnapkj3602/10/2025 Encounter Details DateTypeDepartmentCare Team (Latest Contact Info)Tuqabqvgjmg74/22/2025Refill [facility] [address] [place] [address] Mali Hart APRN-CNP [address] [place] [address] Allergic reaction, sequela Social History Tobacco [...] care, and heating?Not hard at all04/08/2024PHQ-2AnswerDate RecordedTotal Guucr133PRAPARE - TransportationAnswerDate RecordedIn the past 12 months, [...] a part of a household?No04/08/2024hildcareAnswerDate RecordedChildcareUnknown 08/01/2018EmploymentAnswerDate UqpfdxfoZblkcydeqhNblpota55/12/2019Hunger ScreeningAnswerDate RecordedWithin the past 12 months we worried whether our food would run out before we got money to buy more.Never True01/11/2025Within the past 12 months the food we bought just didn't last and we didn't have money to get more.Never True01/11/2025Purpose - LifeAnswerDate RecordedPurpose and direction in gnznLkeoqdp38/12/2021CommentsNoSex and Gender Information ValueDate RecordedSex Assigned at BirthNot on fileLegal LppXgeqcs15/06/2015 11:52 AM EDTGender IdentityNot on fileSexual OrientationNot on filedocumented as of this encounter Plan of Treatment DateTypeDepartmentCare Team (Latest Contact Info)Nnqkqfyekty91/30/2025 8:30 AM ESTOffice Visit [facility] [address] [place] [phone] Rajinder Cotton, DO [address], [facility] [address], [address] [place], [place] [address] 03/25/2025 9:45 AM ESTOffice Visit [facility] [address] [address] Mariah Peña, DO [address] [address] documented as of this encounter Goals GoalPatient Goal TypeAssociated ProblemsRecent ProgressPatient-Stated?Author home Tamiko Thompson, PRATIBHA Note: Evaluation of progress towards goal: Patient stated goal is to return home with [facility] for assistance with wound care documented as of this encounter Visit Diagnoses Diagnosis Allergic reaction, sequela documented in this encounter Additional Health Concerns AssessmentNoted TimePHQ-9 Depression Total Score: 10:01 AM EDTA Body Mass Index follow-up plan has been documented for the yxtrahd7812/20/2024 1:20 PM EDTdocumented as of this encounter Care Teams Team MemberRelationshipSpecialtyStart DateEnd Date Corine Gold MD [address], [facility] [place], [place] [address] PCP - GeneralFamily Fbkbyirk24/22/25documented as of this encounter
--- OUTSIDE RECORDS SUMMARY | 2025-02-16 15:12 | XMS_ITS | Encounter Summary ---
Author Organization [facility] tem Address [facility] [place]-[id number] [address] [place] [address] Care Team Providers Care Rotary Shear Worker Helper Name Role Phone Corine Gold MD Primary Care Provider [phone] Encounter Details DateTypeDepartmentCare Team (Latest Contact Info)Ntbbeysrmxm19/22/2025Refill [facility] [address] [place] [address] [place] [address] Halima Johns, ADMINISTRATIVE JOB TITLES-FOSTER CARE WORKER [address] [facility] [address], [place] [address] Eye infection, bilateral Social History Tobacco UseTypesPacks/DayYears UsedDateSmoking Tobacco: NeverSmokeless Tobacco: NeverAlcohol UseStandard Drinks/WeekCommentsNot Currently0 (1 standard drink = 0.6 oz pure alcohol)[facility] UtilitiesAnswerDate RecordedIn the past 12 months has the [employer], gas, oil, or water [employer] threatened to shut off services in your [...] care, and heating?Not hard at all04/08/2024PHQ-2AnswerDate RecordedTotal Lximr165PRAPARE - TransportationAnswerDate RecordedIn the past 12 months, [...] a part of a household?No04/08/2024hildcareAnswerDate RecordedChildcareUnknown 08/01/2018EmploymentAnswerDate FfaaqdirNejzuoogzbDklhbyj64/12/2019Hunger ScreeningAnswerDate RecordedWithin the past 12 months we worried whether our food would run out before we got money to buy more.Never True01/11/2025Within the past 12 months the food we bought just didn't last and we didn't have money to get more.Never True01/11/2025Purpose - LifeAnswerDate RecordedPurpose and direction in dugtHytuppd99/12/2021CommentsNoSex and Gender Information ValueDate RecordedSex Assigned at BirthNot on fileLegal SfgCikkgh31/06/2015 11:52 AM EDTGender IdentityNot on fileSexual OrientationNot on filedocumented as of this encounter Plan of Treatment DateTypeDepartmentCare Team (Latest Contact Info)Mekmiymfdya94/30/2025 8:30 AM ESTOffice Visit [facility] [address] [place] [address] [place] [address] Rajinder Cotton, [address] [place] [address], [address], [place] [address] 03/25/2025 9:45 AM ESTOffice Visit [facility] [address] [place] [address] Mariah Peña, DO [address] [address] documented as of this encounter Goals GoalPatient [...] follow-up plan has been documented for the uyaeqql2612/20/2024 1:20 PM EDTdocumented as of this encounter Care Teams Team MemberRelationshipSpecialtyStart DateEnd Date Corine Gold MD [address] [place] [address] PCP - GeneralFamily Vuqnrrsx32/22/25documented as of this encounter
--- OUTSIDE RECORDS SUMMARY | 2025-02-16 15:12 | XMS_ITS | Encounter Summary ---
Author Organization [facility] Address [address] [place] [address] Care Team Providers Care Court Manager Name Role Phone Abdifatah Brady (Historical) Primary Care Provide r Unavailable Source Comments In the event this information is protected by the Federal Confidentiality of Alcohol and Drug AbusePatient Records regulations: The Federal rules restrict any use of the information to criminally investigate or prosecute any alcohol or drug abuse patient.[facility] Reason for Visit * ReasonCommentsRefill Request Encounter Details DateTypeDepartmentCare Team (Latest Contact Info)Revmdggumzr38/22/2025Refill Neurology [facility] [address] [place] [address] Griffin Lepe PA-C [address] [place] [address] Refill Request Social History Tobacco UseTypesPacks/DayYears UsedDateSmoking Tobacco: NeverSmokeless Tobacco: NeverPHQ-2AnswerDate RecordedPHQ-2 /20/2025Area Deprivation IndexAnswer Date RecordedNational Score (1-100), lower number is lower vunw744506/23/2022State Score (1-10), lower number is lower [id number] from: https://www.neighborhoodatlas.[facility]/. Last address used for efkwwbafgxi[address]/23/2022CommentsNoSex and Gender Information ValueDate RecordedSex Assigned at BirthNot on fileLegal YxiFirhcx01/01/2014 10:32 AM EDTGender IdentityNot on fileSexual OrientationNot on filedocumented as of this encounter Functional Status * Are you deaf or do you have serious difficulty hearing?AnswerDate of NniakuzoldLmpfjsGd56/10/2023 6:20 PM Katie Wells RN * Are you blind or do you have serious difficulty seeing, even when wearing glasses?AnswerDate of AxllomfuvcRljcbtAz84/10/2023 6:20 PM Katie Wells RN * Do you have serious difficulty walking or climbing stairs?AnswerDate of OkrlrbnyogPlxindQl63/10/2023 6:20 PM Katie Wells RN * Do you have difficulty dressing or bathing?AnswerDate of AssessmentAuthorNo 04/01/2022 6:20 PM Katie Wells RN * Because of a physical, mental, or emotional condition, do you have difficulty doing errands alone such as visiting a doctor's office or shopping?AnswerDate of HmzkvauwizJechgcZs12/10/2023 6:20 PM Katie Wells RN documented as of this encounter Mental Status * Because of a physical, mental, or emotional condition, do you have serious difficulty concentrating, remembering, or making decisions?AnswerEntry Date NgkhrwVo16/10/2023 6:20 PM Katie Wells RN documented in this encounter Miscellaneous Notes * Telephone Encounter - Lorena Guido APRN.CARVING MACHINE OPERATOR - 02/12/2025 8:37 AM EST The following approved medication requests have been transmitted electronically. Requested Prescriptions Pending Prescriptions Disp Refills keTORolac (TORADOL) 10 mg tablet [Pharmacy Med Name: ketorolac 10 mg tablet] 20 tablet 5 Sig: TAKE 1 TABLET BY MOUTH EVERY 6 HOURS NEEDED Lorena Guido APRN.CARVING MACHINE OPERATOR CMP from 11/24/2024 WNL * Telephone Encounter [...] be E-script to pharmacy [facility]acy [facility]: [facility] documented in this encounter Plan of Treatment DateTypeDepartmentCare Team (Latest Contact Info)Houlpaluueu64/16/2026 9:30 AM ESTInfusion Center Neurology [address] [place] [address] vyeptidocumented as of this encounter Visit Diagnoses Not on filedocumented in this encounter Care Teams Team MemberRelationshipSpecialtyStart DateEnd Date Abdifatah Brady (Historical) PCP - General05/21/13documented as of this encounter
--- OUTSIDE RECORDS SUMMARY | 2025-02-16 15:12 | XMS_ITS | Encounter Summary ---
Author Organization [facility] Sy tem Address [facility] [place]-[id number] [address] [place] [address] Care Team Providers Care Social Service Worker Name Role Phone Corine Gold MD Primary Care Provider [phone] Reason for Visit * ReasonOnset DateCommentsMed Ykzfwh0602/10/2025 Encounter Details DateTypeDepartmentCare Team (Latest Contact Info)Lrqycgvzczc42/22/2025[facility]ill [facility] [address] [place] [address] [place] [address] Saba Carter N, DIRECTOR DANCE-REINFORCEMENT MAKER [address] [place] [address] Moderate persistent asthma without complication; Seasonal allergic rhinitis, unspecified trigger Social History Tobacco UseTypesPacks/DayYears UsedDateSmoking Tobacco: NeverSmokeless Tobacco: NeverAlcohol UseStandard Drinks/WeekCommentsNot Currently0 (1 standard drink = 0.6 oz pure alcohol)[facility] UtilitiesAnswerDate RecordedIn the past 12 months has the [employer], gas, oil, or water [employer] threatened to shut off services in your [...] care, and heating?Not hard at all04/08/2024PHQ-2AnswerDate RecordedTotal Ehqeo731PRAPARE - TransportationAnswerDate RecordedIn the past 12 months, [...] a part of a household?No04/08/2024hildcareAnswerDate RecordedChildcareUnknown 08/01/2018EmploymentAnswerDate JqyvkkdtAccypsgepvIxjuuzm87/12/2019Hunger ScreeningAnswerDate RecordedWithin the past 12 months we worried whether our food would run out before we got money to buy more.Never True01/11/2025Within the past 12 months the food we bought just didn't last and we didn't have money to get more.Never True01/11/2025Purpose - LifeAnswerDate RecordedPurpose and direction in fjsnSzkfyrl11/12/2021CommentsNoSex and Gender Information ValueDate RecordedSex Assigned at BirthNot on fileLegal FosWbrgcj31/06/2015 11:52 AM EDTGender IdentityNot on fileSexual OrientationNot on filedocumented as of this encounter Plan of Treatment DateTypeDepartmentCare Team (Latest Contact Info)Seafvsevhax46/30/2025 8:30 AM ESTOffice Visit [facility] [address] [place] [address] [place] [address] Rajinder Cotton, DO 605 [facility], [address], [place] [address] 03/25/2025 9:45 AM ESTOffice Visit [facility] [address] [phone] Mariah Peña, [address] [address] documented as of this encounter Goals GoalPatient Goal TypeAssociated ProblemsRecent ProgressPatient-Stated?Author home Tamiko Thompson RN Note: Evaluation of progress towards goal: Patient stated goal is to return home with [facility] for assistance with wound care documented as of this encounter Visit Diagnoses Diagnosis Moderate persistent asthma without complication Seasonal allergic rhinitis, unspecified trigger documented in this encounter Additional Health Concerns AssessmentNoted TimePHQ-9 Depression Total Score: 10:01 AM EDTA Body Mass Index follow-up plan has been documented for the igfspwu4312/20/2024 1:20 PM EDTdocumented as of this encounter Care Teams Team MemberRelationshipSpecialtyStart DateEnd Date Corine Gold MD [address] [facility] [place] [address] PCP - GeneralFamily Najhrysv69/22/25documented as of this encounter
--- OUTSIDE RECORDS SUMMARY | 2025-02-16 15:12 | XMS_ITS | Encounter Summary ---
Author Organization [facility] Sys tem Address [id number] [address] [place] [address] Care Team Providers Care Community Fundraiser Name Role Phone Corine Gold MD Primary Care Provider [phone] Encounter Details DateTypeDepartmentCare Team (Latest Contact Info)Uwgbjlcskuo56/22/2025Refill [facility] [address] [place] [address] [place] [address] Halima Johns, JEWELRY BENCH WORKER-THREADING MACHINE OPERATOR 605 [facility] [address], [place] [address] Eye infection, bilateral Social History Tobacco UseTypesPacks/DayYears UsedDateSmoking Tobacco: NeverSmokeless Tobacco: NeverAlcohol UseStandard Drinks/WeekCommentsNot Currently0 (1 standard drink = 0.6 oz pure alcohol)[facility] UtilitiesAnswerDate RecordedIn the past 12 months has the [employer], gas, oil, or water [employer] threatened to shut off services in your [...] care, and heating?Not hard at all04/08/2024PHQ-2AnswerDate RecordedTotal Qvyxs546PRAPARE - TransportationAnswerDate RecordedIn the past 12 months, [...] a part of a household?No04/08/2024hildcareAnswerDate RecordedChildcareUnknown 08/01/2018EmploymentAnswerDate ZcjoxkufQxypjmdojkKtjhmwe22/12/2019Hunger ScreeningAnswerDate RecordedWithin the past 12 months we worried whether our food would run out before we got money to buy more.Never True01/11/2025Within the past 12 months the food we bought just didn't last and we didn't have money to get more.Never True01/11/2025Purpose - LifeAnswerDate RecordedPurpose and direction in efrsBfpjmwm96/12/2021CommentsNoSex and Gender Information ValueDate RecordedSex Assigned at BirthNot on fileLegal GpmPkalpf62/06/2015 11:52 AM EDTGender IdentityNot on fileSexual OrientationNot on filedocumented as of this encounter Plan of Treatment DateTypeDepartmentCare Team (Latest Contact Info)Leggqzpdqsp48/30/2025 8:30 AM ESTOffice Visit [facility] [address] [place] [address] [place] [address] Rajinder Cotton, [address] [place] [address], [address], [place] [address] 03/25/2025 9:45 AM ESTOffice Visit [facility] [address] [place] [address] Mariah Peña, DO [address] [address] documented as of this encounter Goals GoalPatient [...] follow-up plan has been documented for the iieyfvk3812/20/2024 1:20 PM EDTdocumented as of this encounter Care Teams Team MemberRelationshipSpecialtyStart DateEnd Date Corine Gold MD [address] [place] [address] PCP - GeneralFamily Xowfmqwn64/22/25documented as of this encounter
--- OUTSIDE RECORDS SUMMARY | 2025-02-16 15:12 | XMS_ITS | Clinical Summary ---
Author Organization [facility] Address [address] [place] [address], [address] [place] [address] Care Team Providers Care President Finance Company Name Role Phone Angélica Weber Pamela HECK - COUNTER CONTROL OPERATOR Primary Care Provider [phone] Allergies Active AllergyReactionsCriticalityNoted YoqqHjjeomcrCfbyysjpmhDyldn68/04/2021 Propranolol HclHives,Other (See Comments)12/24/2020 Migrianes FpunavvkuvxetrXuhal67/04/2021arbamazepineOther (See Comments)12/24/2020 anxiety CcxmpwqnsocsIxcaa71/04/2021 Medications MedicationSigDispense QuantityRefillsLast FilledStart DateEnd DateStatus SUMAtriptan [...] Discharge) Active Problems ProblemNoted DateDiagnosed DatePsychogenic nonepileptic vfrnuti3810/20/2021 Seizure-like wpfoiuwl25/30/2022eizure dbtoqoms09/30/2022 Social History Tobacco UseTypesPacks/DayYears UsedDateSmoking Tobacco: NeverSmokeless Tobacco: NeverAlcohol UseStandard Drinks/WeekCommentsNot Currently0 (1 standard drink = 0.6 oz pure alcohol)CommentsNoSex and Gender InformationValueDate RecordedSex Assigned at BirthNot on fileLegal NjdNwwfoi00/13/2013 12:07 AM EST Gender IdentityNot on fileSexual OrientationNot on file Last Filed Vital Signs Vital SignReadingTime TakenCommentsBlood Otjbnhyz194/2970610/20/2021 12:00 PM EDT Bhpci5645 12:00 PM MGFUyillpmrmkw38.8 ??C (98.2 ??F)10/20/2021 8:00 AM EDTRespiratory Etfp521210/20/2021 12:00 PM EDTOxygen Sfdypuegfa29%10/20/2021 12:00 PM EDTInhaled Oxygen Concentration--Weight--Height--Body Mass Index-- Plan of Treatment Not on file Insurance Advance Directives * Full Code (Latest Code Status on File) Date ActivatedDate InactivatedComments10/19/2021 12:27 PM10/20/2021 4:12 PM * Full Code Date ActivatedDate InactivatedComments10/19/2021 12:23 PM10/19/2021 12:27 PM Care Teams Team MemberRelationshipSpecialtyStart DateEnd Date Angélica Weber, LABORATORY PHLEBOTOMIST - COUNTER CONTROL OPERATOR [address] [place] [address] PCP - GeneralNurse Mbmtzfcvzjrm09/4/21
--- OUTSIDE RECORDS SUMMARY | 2025-02-16 15:12 | XMS_ITS | Encounter Summary ---
Author Organization [facility] Sy tem Address [id number] [address] [place] [address] Care Team Providers Care Community Relations Director Name Role Phone Corine Gold MD Primary Care Provider [phone] Encounter Details DateTypeDepartmentCare Team (Latest Contact Info)Wzhhuqwghes83/22/2025Refill [facility] [address] [facility] [place] [address] Mali Hart, UMANG-SAND MOLDER [address] [place], [place] [address] Allergic reaction, sequela Social History Tobacco UseTypesPacks/DayYears UsedDateSmoking Tobacco: NeverSmokeless Tobacco: NeverAlcohol UseStandard Drinks/WeekCommentsNot Currently0 (1 standard drink = 0.6 oz pure alcohol)[facility] UtilitiesAnswerDate RecordedIn the past 12 months has the [employer], gas, oil, or water [employer] threatened to shut off services in your [...] care, and heating?Not hard at all04/08/2024PHQ-2AnswerDate RecordedTotal Rrreb233PRAPARE - TransportationAnswerDate RecordedIn the past 12 months, [...] a part of a household?No04/08/2024hildcareAnswerDate RecordedChildcareUnknown 08/01/2018EmploymentAnswerDate VruqaakeObaywdtppvEbbnrkn39/12/2019Hunger ScreeningAnswerDate RecordedWithin the past 12 months we worried whether our food would run out before we got money to buy more.Never True01/11/2025Within the past 12 months the food we bought just didn't last and we didn't have money to get more.Never True01/11/2025Purpose - LifeAnswerDate RecordedPurpose and direction in drxtRtndysi68/12/2021CommentsNoSex and Gender Information ValueDate RecordedSex Assigned at BirthNot on fileLegal BfoEwvjcs88/06/2015 11:52 AM EDTGender IdentityNot on fileSexual OrientationNot on filedocumented as of this encounter Plan of Treatment DateTypeDepartmentCare Team (Latest Contact Info)Xidblshlylr37/30/2025 8:30 AM ESTOffice Visit [facility] [address] [place] [address] [place] [address] Rajinder Cotton, DO 605 [facility], [address], [place] [address] 03/25/2025 9:45 AM ESTOffice Visit [facility] [address] [address] Mariah Peña, DO [address] [address] documented as of this encounter Goals GoalPatient Goal TypeAssociated ProblemsRecent ProgressPatient-Stated?Author home Tamiko Thompson RN Note: Evaluation of progress towards goal: Patient stated goal is to return home with [facility] for assistance with wound care documented as of this encounter Visit Diagnoses Diagnosis Allergic reaction, sequela documented in this encounter Additional Health Concerns AssessmentNoted TimePHQ-9 Depression Total Score: 10:01 AM EDTA Body Mass Index follow-up plan has been documented for the okwzthv3912/20/2024 1:20 PM EDTdocumented as of this encounter Care Teams Team MemberRelationshipSpecialtyStart DateEnd Date Corine Gold MD [address] [place] [address] PCP - GeneralFamily Jqnkslym30/22/25documented as of this encounter
--- OUTSIDE RECORDS SUMMARY | 2025-02-16 15:12 | XMS_ITS | Encounter Summary ---
Author Organization [facility] Sys tem Address [id number] [address] [place] [address] Care Team Providers Care Recreational Facilities Motel Manager Name Role Phone Corine Gold MD Primary Care Provider [phone] Reason for Visit * ReasonOnset DateCommentsMed Ejhozl8702/10/2025 Encounter Details DateTypeDepartmentCare Team (Latest Contact Info)Gzeevfyviym82/22/2025Refill [facility] [address] [address] Mariah Peña DO [address] [address] Gastroesophageal reflux disease without esophagitis Social History Tobacco UseTypesPacks/DayYears UsedDateSmoking Tobacco: NeverSmokeless Tobacco: NeverAlcohol UseStandard Drinks/WeekCommentsNot Currently0 (1 standard drink = 0.6 oz pure alcohol)[facility] UtilitiesAnswerDate RecordedIn the past 12 months has the [employer], oil, or water [employer] threatened to shut off services in your [...] care, and heating?Not hard at all04/08/2024PHQ-2AnswerDate RecordedTotal Hvqaz710PRAPARE - TransportationAnswerDate RecordedIn the past 12 months, [...] a part of a household?No04/08/2024hildcareAnswerDate RecordedChildcareUnknown 08/01/2018EmploymentAnswerDate DtqcjgegIohedjmwwpPmuibyt16/12/2019Hunger ScreeningAnswerDate RecordedWithin the past 12 months we worried whether our food would run out before we got money to buy more.Never True01/11/2025Within the past 12 months the food we bought just didn't last and we didn't have money to get more.Never True01/11/2025Purpose - LifeAnswerDate RecordedPurpose and direction in jsnzUgopsmg11/12/2021CommentsNoSex and Gender Information ValueDate RecordedSex Assigned at BirthNot on fileLegal CqtUwdrjg94/06/2015 11:52 AM EDTGender IdentityNot on fileSexual OrientationNot on filedocumented as of this encounter Miscellaneous Notes * Telephone Encounter - Malia Mason RN - 02/10/2025 3:04 PM EST Patient last seen 12-17-24 and has scheduled f/u appt on 03-25-25 documented in this encounter Plan of Treatment DateTypeDepartmentCare Team (Latest Contact Info)Ogloxcsgsqx45/30/2025 8:30 AM ESTOffice Visit [facility] [address] [place] [address] [place] [phone] Rajinder Cotton, DO 605 [facility], [facility] [address], [address] [place], [place] [address] 03/25/2025 9:45 AM ESTOffice Visit [facility] [address] [address] Mariah Peña, DO [address] [address] documented as of this encounter [...] follow-up plan has been documented for the rkjaoan0912/20/2024 1:20 PM EDTdocumented as of this encounter Care Teams Team MemberRelationshipSpecialtyStart DateEnd Date Corine Gold MD [address], [facility] [address] [place], [place] [address] PCP - GeneralFamily Vispvoze00/22/25documented as of this encounter
--- OUTSIDE RECORDS SUMMARY | 2025-02-16 15:12 | XMS_ITS | Encounter Summary ---
Author Organization [facility] Sys tem Address [id number] [address] [place] [address] Care Team Providers Care Tree Worker Name Role Phone Corine Gold MD Primary Care Provider [phone] Encounter Details DateTypeDepartmentCare Team (Latest Contact Info)Rzjmrfxdhxx70/22/2025Refill [facility] [address] [place] [address] Corine Gold MD [address] [place] [address] Seasonal allergic rhinitis, unspecified trigger; Muscle spasm Social History Tobacco UseTypesPacks/DayYears UsedDateSmoking Tobacco: NeverSmokeless Tobacco: NeverAlcohol UseStandard Drinks/WeekCommentsNot Currently0 (1 standard drink = 0.6 oz pure alcohol)[facility] UtilitiesAnswerDate RecordedIn the past 12 months has the [employer], gas, oil, or water [employer] threatened to shut off services in your [...] care, and heating?Not hard at all04/08/2024PHQ-2AnswerDate RecordedTotal Sokvl135PRAPARE - TransportationAnswerDate RecordedIn the past 12 months, [...] a part of a household?No04/08/2024hildcareAnswerDate RecordedChildcareUnknown 08/01/2018EmploymentAnswerDate YztzvjwiMmngxwnzkvEnsjhql95/12/2019Hunger ScreeningAnswerDate RecordedWithin the past 12 months we worried whether our food would run out before we got money to buy more.Never True01/11/2025Within the past 12 months the food we bought just didn't last and we didn't have money to get more.Never True01/11/2025Purpose - LifeAnswerDate RecordedPurpose and direction in qftmFgqbaqm96/12/2021CommentsNoSex and Gender Information ValueDate RecordedSex Assigned at BirthNot on fileLegal SklAzoccb39/06/2015 11:52 AM EDTGender IdentityNot on fileSexual OrientationNot on filedocumented as of this encounter Plan of Treatment DateTypeDepartmentCare Team (Latest Contact Info)Aiaxkofdplj39/30/2025 8:30 AM ESTOffice Visit [facility] [address] [place] [address] [place] [address] Rajinder Cotton, DO 605 [facility], [address], [place] [address] 03/25/2025 9:45 AM ESTOffice Visit [facility] [address] [address] Mariah Peña, DO [address] [address] documented as of this encounter Goals GoalPatient Goal TypeAssociated ProblemsRecent ProgressPatient-Stated?Author home Tamiko Thompson RN Note: Evaluation of progress towards goal: Patient stated goal is to return home with [facility] for assistance with wound care documented as of this encounter Visit Diagnoses Diagnosis Seasonal allergic rhinitis, unspecified trigger Muscle spasm Spasm of muscle documented in this encounter Additional Health Concerns AssessmentNoted TimePHQ-9 Depression Total Score: 10:01 AM EDTA Body Mass Index follow-up plan has been documented for the beaypey3612/20/2024 1:20 PM EDTdocumented as of this encounter Care Teams Team MemberRelationshipSpecialtyStart DateEnd Date Corine Gold MD [address] [place] [address] PCP - GeneralFamily Oytpbxip14/22/25documented as of this encounter
--- OUTSIDE RECORDS SUMMARY | 2025-02-16 15:12 | XMS_ITS | Encounter Summary ---
Author Organization [facility] Sys tem Address [id number] [address] [place] [address] Care Team Providers Care Children'S Zoo Caretaker Name Role Phone Corine Gold MD Primary Care Provider [phone] Encounter Details DateTypeDepartmentCare Team (Latest Contact Info)Ebltipjnauh23/22/2025Refill [facility] [address] [place] [address] Corine Gold MD [address] [place] [address] Seasonal allergic rhinitis, unspecified trigger; Muscle spasm Social History Tobacco UseTypesPacks/DayYears UsedDateSmoking Tobacco: NeverSmokeless Tobacco: NeverAlcohol UseStandard Drinks/WeekCommentsNot Currently0 (1 standard drink = 0.6 oz pure alcohol)[facility] UtilitiesAnswerDate RecordedIn the past 12 months has the [employer], gas, oil, or water [employer] threatened to shut off services in your [...] care, and heating?Not hard at all04/08/2024PHQ-2AnswerDate RecordedTotal Ricqs135PRAPARE - TransportationAnswerDate RecordedIn the past 12 months, [...] a part of a household?No04/08/2024hildcareAnswerDate RecordedChildcareUnknown 08/01/2018EmploymentAnswerDate BgvghjaeUfhvoyjtixYjjzbsi13/12/2019Hunger ScreeningAnswerDate RecordedWithin the past 12 months we worried whether our food would run out before we got money to buy more.Never True01/11/2025Within the past 12 months the food we bought just didn't last and we didn't have money to get more.Never True01/11/2025Purpose - LifeAnswerDate RecordedPurpose and direction in hdifYcuzvdh69/12/2021CommentsNoSex and Gender Information ValueDate RecordedSex Assigned at BirthNot on fileLegal JfkYpomqb18/06/2015 11:52 AM EDTGender IdentityNot on fileSexual OrientationNot on filedocumented as of this encounter Plan of Treatment DateTypeDepartmentCare Team (Latest Contact Info)Nvccykiejov87/30/2025 8:30 AM ESTOffice Visit [facility] [address] [place] [address] [place] [address] Rajinder Cotton, DO 605 [facility], [address], [place] [address] 03/25/2025 9:45 AM ESTOffice Visit [facility] [address] [address] Mariah Peña, DO [address] [address] documented as of this encounter Goals GoalPatient [...] follow-up plan has been documented for the wgchswb7012/20/2024 1:20 PM EDTdocumented as of this encounter Care Teams Team MemberRelationshipSpecialtyStart DateEnd Date Corine Gold MD [address] [place] [address] PCP - GeneralFamily Xhtksnfl49/22/25documented as of this encounter
--- OUTSIDE RECORDS SUMMARY | 2025-02-16 15:12 | XMS_ITS | Encounter Summary ---
Author Organization [facility] tem Address [id number] [address] [place] [address] Care Team Providers Care Grinder Operator External Tool Name Role Phone Corine Gold MD Primary Care Provider [phone] Encounter Details DateTypeDepartmentCare Team (Latest Contact Info)Tqlgdgvsicv25/22/2025Refill [facility] Oncology, A Department of [facility] [address] [place] [address] Svetlana Ye PA [address] [place] [address] Post-op pain; Post-operative pain; Menopausal symptoms Social History Tobacco UseTypesPacks/DayYears UsedDateSmoking Tobacco: NeverSmokeless Tobacco: NeverAlcohol UseStandard Drinks/WeekCommentsNot Currently0 (1 standard drink = 0.6 oz pure alcohol)[facility] UtilitiesAnswerDate RecordedIn the past 12 months has the [employer], oil, or water [employer] threatened to shut off services in your [...] care, and heating?Not hard at all04/08/2024PHQ-2AnswerDate RecordedTotal Efcpq045PRAPARE - TransportationAnswerDate RecordedIn the past 12 months, [...] a part of a household?No04/08/2024hildcareAnswerDate RecordedChildcareUnknown 08/01/2018EmploymentAnswerDate BjuoatsmYkbudqqcnkBcjvfnp11/12/2019Hunger ScreeningAnswerDate RecordedWithin the past 12 months we worried whether our food would run out before we got money to buy more.Never True01/11/2025Within the past 12 months the food we bought just didn't last and we didn't have money to get more.Never True01/11/2025Purpose - LifeAnswerDate RecordedPurpose and direction in zxbgKcfzsuj02/12/2021CommentsNoSex and Gender Information ValueDate RecordedSex Assigned at BirthNot on fileLegal EywIuratj39/06/2015 11:52 AM EDTGender IdentityNot on fileSexual OrientationNot on filedocumented as of this encounter Plan of Treatment DateTypeDepartmentCare Team (Latest Contact Info)Qnxmquwtihh77/30/2025 8:30 AM ESTOffice Visit [facility] [address] [place] [address] [place] [address] Rajinder Cotton, [address] [place] [address], [address], [place] [address] 03/25/2025 9:45 AM ESTOffice Visit [facility] [address] [place] [phone] Mariah Peña, DO [address] [address] documented as of this encounter [...] follow-up plan has been documented for the lhdztqv5412/20/2024 1:20 PM EDTdocumented as of this encounter Care Teams Team MemberRelationshipSpecialtyStart DateEnd Date Corine Gold MD 605 [facility] [address] PCP - GeneralFamily Dggbvdkr60/22/25documented as of this encounter
--- OUTSIDE RECORDS SUMMARY | 2025-02-16 15:12 | XMS_ITS | Encounter Summary ---
Author Organization [facility] Sy tem Address [facility][id number] [address] [place] [address] Care Team Providers Care International Sales Representative Name Role Phone Corine Gold MD Primary Care Provider [phone] Reason for Visit * ReasonOnset DateCommentsMed Wavomh0402/10/2025 Encounter Details DateTypeDepartmentCare Team (Latest Contact Info)Onjfjczezll71/22/2025Refill [facility] [address] [place] [address] Corine Gold MD [address] [place] [address] Muscle spasm Social History Tobacco UseTypesPacks/DayYears UsedDateSmoking Tobacco: NeverSmokeless Tobacco: NeverAlcohol UseStandard Drinks/WeekCommentsNot Currently0 (1 standard drink = 0.6 oz pure alcohol)[facility] UtilitiesAnswerDate RecordedIn the past 12 months has the [employer], [employer], oil, or water [employer] threatened to shut off services in your [...] care, and heating?Not hard at all04/08/2024PHQ-2AnswerDate RecordedTotal Zkddz798PRAPARE - TransportationAnswerDate RecordedIn the past 12 months, [...] a part of a household?No04/08/2024hildcareAnswerDate RecordedChildcareUnknown 08/01/2018EmploymentAnswerDate QpglsevuKxeuazgkmeJdvscte33/12/2019Hunger ScreeningAnswerDate RecordedWithin the past 12 months we worried whether our food would run out before we got money to buy more.Never True01/11/2025Within the past 12 months the food we bought just didn't last and we didn't have money to get more.Never True01/11/2025Purpose - LifeAnswerDate RecordedPurpose and direction in cfaiYhkadxk29/12/2021CommentsNoSex and Gender Information ValueDate RecordedSex Assigned at BirthNot on fileLegal MtwGulyos16/06/2015 11:52 AM EDTGender IdentityNot on fileSexual OrientationNot on filedocumented as of this encounter Plan of Treatment DateTypeDepartmentCare Team (Latest Contact Info)Swkmgcyovhx41/30/2025 8:30 AM ESTOffice Visit [facility] [address] [place] [address] [place] [address] Rajinder Cotton, [address] [place] [address], [address], [place] [address] 03/25/2025 9:45 AM ESTOffice Visit [facility] [address] [place] [phone] Mariah Peña, DO [address] [phone] documented as of this encounter Goals GoalPatient Goal TypeAssociated ProblemsRecent ProgressPatient-Stated?Author home Tamiko Thompson RN Note: Evaluation of progress towards goal: Patient stated goal is to return home with [facility] for assistance with wound care documented as of this encounter Visit Diagnoses Diagnosis Muscle spasm Spasm of muscle documented in this encounter Additional Health Concerns AssessmentNoted TimePHQ-9 Depression Total Score: 10:01 AM EDTA Body Mass Index follow-up plan has been documented for the axjhugv3912/20/2024 1:20 PM EDTdocumented as of this encounter Care Teams Team MemberRelationshipSpecialtyStart DateEnd Date Corine Gold MD [address] [facility] [place] [address] PCP - GeneralFamily Uptjhfmq40/22/25documented as of this encounter
--- OUTSIDE RECORDS SUMMARY | 2025-02-16 15:12 | XMS_ITS | Clinical Summary ---
Author Organization [employer] s tem Address [facility] [place]-[id number] [address] [place] [address] Care Team Providers Care Meat Curer Name Role Phone Corine Gold MD Primary Care Provider [phone] Allergies Active AllergyReactionsCriticalityNoted TwrvFzolaaddUwjvyhlyStflAfcxoh70/17/2022 Adhesive Tape-Aiahkvnvv93/19/2017AmoxicillinHives,BkmduvdrFynn82/21/2025 Amoxicillin-Pot ClavulanateHives,WrcympzgRnim28/21/2025Bee Venom Protein (Honey Bee)WlglrqpdkrbWohr73/05/0038FlrptbvewLwjnjAbr73/17/2022arbamazepineOther (See Comments)12/24/2020 anxiety RyahjgfmngqraMcgry95/23/6111UzvldfdxtxlPudfq46/06/2021ProchlorperazineAnxietyLow 12/29/20232433PjahojobhcdtxPqkij31/27/1962NgjeylwkhbhepkgjTsuhh23/23/2023 DihydroergotamineGI Disturbance,VmokqHltfpb16/07/2023 Other Reaction(s): Intolerance Chest tightness, numbness and tingling in bilateral extremities, increased anxiety Eptinezumab-JjmrItching,YunhXya3805/02/2024 Patient described extreme itching located on her chest and arms (bilaterally). EyjidgafxvgDmetfljlufpqzs72/05/6136QzepqugbxlTtokh33/19/2017LevetiracetamHives, Mfbhmls0911/11/2022MetoclopramideHives,Other (See Comments)12/24/2020ropranolol HclHives,Other (See Comments)12/24/2020 Migrianes Pyrilamine-LidtaetqievaaapsSbtas89/12/2023Metoclopramide HclItching,AnxietyLow 12/08/2016 No rash GwmrohlknyfkCijys19/17/6434LhxwjfdodslgGpqng89/19/2017 Medications MedicationSigDispense QuantityRefillsLast FilledStart DateEnd DateStatus diazePAM [...] Problems ProblemNoted DateDiagnosed DateGastroesophageal reflux disease without enbyrajrznu83/28/2025Environmental mkjgxuvss58/28/2025Eye infection, bilateral 07/24/2024Ingrown nail of great toe07/24/2024bdominal wall /17/2025 Postoperative surgical complication involving genitourinary system associated with genitourinary anresvzlw31/17/2025S/P bilateral salpingo-oophorectomy 03/28/2024hronic migraine without aura without status migrainosus, not ykinsvmcvsd47/05/2023Polycystic nyjdysa4101/24/2023Moderate persistent asthma without ztaqwktoeoqq93/09/1806Topazbo42/09/2022epressive ezeopamg48/09/2022 Psychogenic nonepileptic ktuskfd6310/20/2021Migraine with aura and without status migrainosus, not oglehbzvpej34/17/2022ilateral occipital kyneipdxf85/17/2022 Encounter for observation of suspected anomaly not found06/04/2019 Resolved Problems ProblemNoted DateDiagnosed DateResolved DateMild persistent asthma with (acute) /05/202310/ute coughSeizure-like nuduaejl93/07/2024LOC (loss of consciousness) Simple partial seizure luapfnpc32 Encounters DateTypeDepartmentCare MemkIwanzyfecid99/23/2025Telephone [facility] [address] [place] [phone] Malia Mason RN 02/10/2025Refill [facility] [address] [phone] Corine Gold MD Muscle spasm02/10/2025Refill [facility] [address] [place] [phone] Saba Carter, FLYING I INSTRUCTOR-BIAS CUTTER Moderate persistent asthma without complication; Seasonal allergic rhinitis, unspecified xvqowps4402/10/2025Refill [facility] [address] [facility] [address] [place] [address] Mariah Peña, DO Gastroesophageal reflux disease without fjhjngsughc86/22/2025Refill [facility] [address] [place] [phone] Mali Hart FLYING I INSTRUCTOR-BIAS CUTTER Allergic reaction, ebadtgd3802/10/2025Refill [facility] [address] [place] [phone] Corine Gold MD Seasonal allergic rhinitis, unspecified trigger; Muscle spasm02/10/2025Refill [facility], A Department of [address] [phone] Svetlana Ye PA Post-op pain; Post-operative pain02/10/2025Refill [facility] [address] [phone] Saba Carter, FLYING I INSTRUCTOR-BIAS CUTTER Moderate persistent asthma without complication; Seasonal allergic rhinitis, unspecified trigger; Watery eyes02/10/2025Refill [facility] [address] [facility] [address] [place] [phone] Mariah Peña, Moderate asthma with acute exacerbation, unspecified whether persistent; Gastroesophageal reflux disease without esophagitis; Moderate persistent asthma without complication; Moderate persistent asthma, unspecified whether tlocdozlvbf63/22/2025Refill [facility] [address] [place] [phone] Mali Hart FLYING I INSTRUCTOR-BIAS CUTTER Allergic reaction, mcqhcuw4702/10/2025Refill [facility] [address] [place] [phone] Halima Johns, FLYING I INSTRUCTOR-BIAS CUTTER Eye infection, kusvjexkz93/22/2025Refill [facility] [address] [place] [phone] Corine Gold MD Seasonal allergic rhinitis, unspecified trigger; Muscle spasm02/10/2025Refill [facility] Oncology, A Department of [address] [phone] Svetlana Ye PA Post-op pain; Post-operative pain; Menopausal doixozky94/22/2025Refill [facility] [address] [place] [phone] Saba Carter, FLYING I INSTRUCTOR-BIAS CUTTER Moderate persistent asthma without complication; Seasonal allergic rhinitis, unspecified trigger; Watery eyes02/10/2025[facility] [address] [facility] [address] [place] [phone] Mariah Peña DO Moderate asthma with acute exacerbation, unspecified whether persistent; Gastroesophageal reflux disease without esophagitis; Moderate persistent asthma without complication; Moderate persistent asthma, unspecified whether xhxsewbogrw87/22/2025Refill [facility] [address] [place] [phone] Mali Hart FLYING I INSTRUCTOR-BIAS CUTTER Allergic reaction, vkzinnu3502/10/2025Refill [facility] [address] [place] [phone] Halima Johns, FLYING I INSTRUCTOR-BIAS CUTTER Eye infection, ghjydktei09/22/2025 11:12 AM EST - 01/11/2025 1:43 PM EST Emergency [facility] - Emergency [address] [place] [phone] Milad Vee MD Nonintractable headache, unspecified chronicity pattern, unspecified headache type (Primary Dx) Discharge Disposition: Home01/11/20251722Frnhty52/20/2025Orders Only [facility] [address] [phone] Mariah Peña, DO Moderate persistent asthma without complication (Primary Dx)12/20/2024 10:00 AM EDTOffice Visit [facility] [address] [place] [address] [place] [address] Saba Carter, FLYING I INSTRUCTOR-BIAS CUTTER Moderate persistent asthma without complication (Primary Dx); Watery eyes; Seasonal allergic rhinitis, unspecified fobikuq0812/19/2024Orders Only [facility] [address] [phone] Mariah Peña, DO Moderate persistent asthma, unspecified whether knlzcgpgvni76/28/2025 9:30 AM EDTOffice Visit [facility] [address] [place] [phone] Mariah Peña, DO Moderate persistent asthma without complication (Primary Dx); Gastroesophageal reflux disease without esophagitis; Environmental tglxhizwi96/28/2025Telephone [facility] [address] [place] [phone] Heraclio Jovel [facility] Prior Authorization (Dup[employer]ent )12/17/20240596Msnjeq63/23/2025Telephone [facility] - Sleep Disorders [address] [place] [address] Corine Gold MD Sleep Lab (Comp PSG/PAP)12/10/2024 2:30 PM EDTOffice [facility] [address] [place] [address] [place] [address] Corine Gold MD JUAN DAVID (obstructive sleep apnea) (Primary Dx)12/10/2024Telephone [facility] [address] [phone] Malia Mason RN 12/10/20243844Dtyovk04/20/2025Refill [facility] [address] [phone] Mariah Peña, Moderate asthma with acute exacerbation, unspecified whether persistent 11/24/2024 5:31 PM EDT - 11/25/2024 2:16 [facility] [address] [place] [address] Cecilio Grant DO Nonintractable headache, unspecified chronicity pattern, unspecified headache type (Primary Dx) Discharge Disposition: Home11/24/2024Travelfrom Last 3 Months Immunizations ImmunizationAdministration DatesNext MdlWBnL0109/07/2001DTaP / HIB / IPV03/05/1997 ,07/05/1996,05/06/1996,01/15/1996HPV Byludaiccaev15/02/2013,01/20/2012, 11/15/2011Hep B, Adolescent or Sxokuvgah70/05/2003,05/06/1996,1995, 1995IPV09/07/2001Influenza (IM) Preservative Free12/31/2015,11/27/2014, 10/23/2012,11/15/2011Influenza, Injectable, Mdck, Preservative Free, Quad 12/08/2017MMR09/07/2001,03/05/1997Meningococcal OVY5Y7111/15/2011Tdap09/21/2015 Bhluxgavg32/25/2012,10/25/2002 Family History Medical HistoryRelationNameCommentsAnesthesia problemsFatherprolonged emergence Cystic fibrosisFatherOvarian cancerMaternal AuntAnesthesia problemsMother Prolonged emergenceCystic fibrosisMotherRelationNameStatusCommentsFatherAlive Maternal AuntMotherAliveSister 1AliveSister 2AliveSister 3Alive Social History Tobacco UseTypesPacks/DayYears UsedDateSmoking Tobacco: NeverSmokeless Tobacco: Never Tobacco Cessation:Counseling Given: Not Answered Alcohol UseStandard Drinks/WeekCommentsNot Currently0 (1 standard drink = 0.6 oz pure alcohol)[facility] UtilitiesAnswerDate RecordedIn the past 12 [...] care, and heating?Not hard at all04/08/2024PHQ-2AnswerDate RecordedTotal Yauir458PRAPARE - TransportationAnswerDate RecordedIn the past 12 months, [...] a part of a household?No04/08/2024hildcareAnswerDate RecordedChildcareUnknown 08/01/2018EmploymentAnswerDate WiqtreyyVkrqmkciziBevelez43/12/2019Hunger ScreeningAnswerDate RecordedWithin the past 12 months we worried whether our food would run out before we got money to buy more.Never True01/11/2025Within the past 12 months the food we bought just didn't last and we didn't have money to get more.Never True01/11/2025Purpose - LifeAnswerDate RecordedPurpose and direction in dwjeCfygbsf05/12/2021CommentsNoSex and Gender Information ValueDate RecordedSex Assigned at BirthNot on fileLegal AgaKxsscr19/06/2015 11:52 AM EDTGender IdentityNot on fileSexual OrientationNot on file Last Filed Vital Signs Vital SignReadingTime TakenCommentsBlood Wjneeplp554/8801/11/2025 1:43 PM EST Dixxi97532/22/2025 1:43 PM LLQPcqqeawavzh19.8 ??C (98.2 ??F)01/11/2025 11:16 AM ESTRespiratory Uxuq757603/13/2024 1:43 PM ESTOxygen Nhubmbjepx50%01/11/2025 1:43 PM ESTInhaled Oxygen Concentration--Ncqkok121.4 kg (283 lb)01/11/2025 11:16 AM BCRAapmmt558.4 cm (5')01/11/2025 11:16 AM ESTBody Mass Index55.27103/13/2024 11:16 AM EST Plan of Treatment DateTypeDepartmentCare Team (Latest Contact Info)Cdlwqmgjmdq35/30/2025 8:30 AM ESTOffice Visit [facility] [address] [place] [address] [place] [address] Rajinder Cotton, [address], [facility], [place] [address] 03/25/2025 9:45 AM ESTOffice Visit [facility] [address] [place] [phone] Mariah Peña, [address] [address] Health MaintenanceDue DateLast DoneCommentsInfluenza Rkrjicl8110/21/2024 12/08/2017, 12/31/2015, 11/27/2014, Additional history existsDTaP,Tdap and Td Vaccines (7 - Td or Tdap)6009/21/2015, 09/07/2001, 03/05/1997, Additional history existsAdult BMI Follow Up PlanDepression Vjvvymckn30dult BMI Luzmnpzuv65Tobacco Dmzejkrnx29Pap ZeghhXjtytclavaze66/25/2025 Goals GoalPatient Goal TypeAssociated ProblemsRecent ProgressPatient-Stated?Author home Tamiko Thompson RN Note: Evaluation of progress towards goal: Patient stated goal is to return home with [facility] for assistance with wound care Medical Devices Not on file Procedures Procedure NamePriorityDate/TimeAssociated DiagnosisCommentsCT BRAIN WO CONTSTAT 11/24/2024 9:06 PM EDT ECG 12-FRGKPIKM57/05/2025 7:08 PM EDTCOMPREHENSIVE METABOLIC URSWUCSIS87/05/2025 7:04 PM EDT CBC WITH AUTO KCTDUEFRGTRBYEQY75/05/2025 7:04 PM EDT from Last 3 Months [...] 10:18 PM Authorizing ProviderResult TypeResult Michaela Grant [facility] ORDERABLES Final Result * ECG 12 lead (11/24/2024 7:08 PM EDT)Specimen (Source)Anatomical Location / LateralityCollection Method / VolumeCollection TimeReceived Time11/24/2024 7:08 PM EDT Narrative Authorizing ProviderResult TypeResult Michaela Grant DOECG ORDERABLESFinal ResultPerforming OrganizationAddressCity/State/ZIP CodePhone Number [place] * (ABNORMAL) CBC auto differential (11/24/2024 7:04 PM EDT)ComponentValueRef RangeTest MethodAnalysis TimePerformed AtPathologist SignatureWBC8.34 - 11 x10E9/L1 7:27 PM [facility] LABORATORYRBC Count4.55 3.8 - 5.2 X10E12/L1 7:27 PM [facility] Fqwqtpycce27.311.7 - 15.5 g/dL11/24/2024 7:27 PM [facility] VOWUDPJGTHBszdogmqsk05.035 - 47 %11/24/2024 7:27 PM [facility] PPMSQUUCMRBLV3309 - 100 fL11/24/2024 7:27 PM [facility] UYVTCMPNLPPRU98.227 - 34 pg11/24/2024 7:27 PM [facility] IWLVKLNSCOJEBX22.132 - 36 g/dL11/24/2024 7:27 PM [facility] MQTDKMLREZSGW31.811.5 - 15 %11/24/2024 7:27 PM [facility] LABORATORYPlatelet Vettw435406 - 450 X10E9/L1 7:27 PM [facility] LABORATORYMPV7.87 - 12 fL11/24/2024 7:27 PM [facility] LABOR[facility]ORYNeutrophils %55.2%11/24/2024 7:27 PM [facility] LABORATORYLymphocytes %30.0%11/24/2024 7:27 PM [facility] LABOR[facility]ORYMonocytes %6.7%11/24/2024 7:27 PM [facility] LABOR[facility]ORYEosinophils %7.5%11/24/2024 7:27 PM [facility] LABORATORYBasophils %0.6%11/24/2024 7:27 PM [facility] LABORATORYNeutrophils Absolute (A)4.61.5 - 6.6 10*3/uL 11/24/2024 7:27 PM [facility] LABORATORYLymphocytes Absolute 2.51.0 - 3.5 10*3/uL10/06/2024 7:27 PM [facility] Monocytes Absolute0.60.0 - 0.9 10*3/uL11/24/2024 7:27 PM [facility] LABORATORYEosinophils Absolute0.6(H)0.0 - 0.4 10*3/uL11/24/2024 7:27 PM [facility] LABORATORYBasophils Absolute0.00.0 - 0.2 10*3/uL 11/24/2024 7:27 PM [facility] LABORATORYDifferential Type AUTOMATED CAASAKTVEHUA38/05/2025 7:27 PM [facility] LABORATORYSpecimen (Source)Anatomical Location / LateralityCollection Method / VolumeCollection TimeReceived TimeBloodVenous blood / Iyjchxz9211/24/2024 7:04 PM EDT1 7:14 PM EDT Narrative Authorizing ProviderResult TypeResult StatusJesse Jose Grant [facility] BLOOD ORDERABLES Final ResultPerforming OrganizationAddressCity/State/ZIP CodePhone Number [facility] [address] [place] [address], * (ABNORMAL) Comprehensive metabolic panel (11/24/2024 7:04 PM EDT)Component ValueRef RangeTest MethodAnalysis TimePerformed AtPathologist SignatureSODIUM 801066 - 146 mmol/L1 7:48 PM [facility] POTASSIUM4.13.5 - 5.0 mmol/L1 7:48 PM [facility] TQJWMBSSEZZCMVXNGI23640 - 109 mmol/L1 7:48 PM [facility] LABORATORYCARBON DVXHOOA1232 - 32 mmol/L1 7:48 PM [facility] LABORATORYANION YLE594 - 15 mmol/L1 7:48 PM EDT [facility] LABORATORYBLOOD UREA SLHFVIVN128 - 23 mg/dL11/24/2024 7:48 PM [facility] LABORATORYCREATININE0.690.40 - 1.00 mg/dL 11/24/2024 7:48 PM [facility] LABORATORYComment:METHOD TRACEABLE TO IDKY CCZTXRUNTPLBQCK2407 - 99 mg/dL11/24/2024 7:48 PM [facility] LABORATORYCALCIUM9.08.5 - 10.5 mg/dL11/24/2024 7:48 PM EDT [facility] LABORATORYTOTAL PROTEIN6.76.0 - 8.0 g/dL11/24/2024 7:48 PM [facility] LABORATORYALBUMIN4.13.2 - 5.3 g/dL 11/24/2024 7:48 PM [facility] LABORATORYALKALINE PHOSPHATASE 7739 - 130 U/L1 7:48 PM [facility] KJAQPEORIFWUJ29 <=41 U/L1 7:48 PM [facility] OXOMCPQBXLCUY76<=31 U/L 11/24/2024 7:48 PM [facility] LABORATORYBILIRUBIN,TOTAL0.2(L) 0.3 - 1.2 mg/dL11/24/2024 7:48 PM [facility] LABOR[facility]ORYEGFR Non-Race Dependent>90>=60 ml/min/1.73sq.m1 7:48 PM [facility] LABORATORYComment: Reported eGFR is based on the CKD-EPI 2020 equation that does not use a race coefficient. Specimen (Source)Anatomical Location / LateralityCollection Method / Volume Collection TimeReceived TimeBloodVenous blood / Akqghtb6011/24/2024 7:04 PM EDT 11/24/2024 7:14 PM EDT Narrative Authorizing ProviderResult TypeResult StatusJesse Jose [facility] BLOOD ORDERABLES Final ResultPerforming OrganizationAddressCity/State/ZIP CodePhone Number [facility] [address] [place] [address], from Last 3 Months Insurance Advance Directives * Full Code (Latest Code Status on File) Date ActivatedDate InactivatedComments03/28/2024 2:56 03/28/2024 8:49 PM Care Teams Team MemberRelationshipSpecialtyStart DateEnd Date Corine Gold MD [address] [place] [address] PCP - GeneralFamily Bgnoxzyd35/22/25
--- OUTSIDE RECORDS SUMMARY | 2025-02-16 15:12 | XMS_ITS | Encounter Summary ---
Author Organization [facility] Address [id number] [address] [place] [address] Care Team Providers Care Email Marketing Coordinator Name Role Phone Corine Gold MD Primary Care Provider [phone] Encounter Details DateTypeDepartmentCare Team (Latest Contact Info)Mramvckndgw85/22/2025Refill [facility] [address] [phone] Mariah Pñea DO [address] [address] Moderate asthma with acute exacerbation, unspecified whether persistent; Gastroesophageal reflux disease without esophagitis; Moderate persistent asthma without complication; Moderate persistent asthma, unspecified whether complicated Social History Tobacco UseTypesPacks/DayYears UsedDateSmoking Tobacco: NeverSmokeless Tobacco: NeverAlcohol UseStandard Drinks/WeekCommentsNot Currently0 (1 standard drink = 0.6 oz pure alcohol)[facility] UtilitiesAnswerDate RecordedIn the past 12 months has the [employer], gas, oil, or water [employer] threatened to shut off services in your [...] care, and heating?Not hard at all04/08/2024PHQ-2AnswerDate RecordedTotal Ydrja867PRAPARE - TransportationAnswerDate RecordedIn the past 12 months, [...] a part of a household?No04/08/2024hildcareAnswerDate RecordedChildcareUnknown 08/01/2018EmploymentAnswerDate AletkjvtRlhajkatnmWhxebky81/12/2019Hunger ScreeningAnswerDate RecordedWithin the past 12 months we worried whether our food would run out before we got money to buy more.Never True01/11/2025Within the past 12 months the food we bought just didn't last and we didn't have money to get more.Never True01/11/2025Purpose - LifeAnswerDate RecordedPurpose and direction in yvnjSiwvsep08/12/2021CommentsNoSex and Gender Information ValueDate RecordedSex Assigned at BirthNot on fileLegal CygTknvne62/06/2015 11:52 AM EDTGender IdentityNot on fileSexual OrientationNot on filedocumented as of this encounter Plan of Treatment DateTypeDepartmentCare Team (Latest Contact Info)Yfzcbkldegb86/30/2025 8:30 AM ESTOffice Visit [facility] [address] [place] [address] [place] [address] Rajinder Cotton, DO [address] [facility], [address], [place] [address] 03/25/2025 9:45 AM ESTOffice Visit [facility] [address] [phone] Mariah Peña, [address] [address] documented as of this encounter Goals GoalPatient Goal TypeAssociated ProblemsRecent ProgressPatient-Stated?Author home Tamiko Thompson RN Note: Evaluation of progress towards goal: Patient stated goal is to return home with [facility] for assistance with wound care [...] follow-up plan has been documented for the hkljwbz1212/20/2024 1:20 PM EDTdocumented as of this encounter Care Teams Team MemberRelationshipSpecialtyStart DateEnd Date Corine Gold MD [address] [place] [address] PCP - GeneralFamily Fjircoae46/22/25documented as of this encounter
--- OUTSIDE RECORDS SUMMARY | 2025-02-16 15:14 | XMS_ITS | CCD ---
Author Organization [facility] CliniSywi Care Team Providers Care Computer Trainer Name Role Phone Abdifatah Brady (Historical) Primary Care Provide r Unavailable Kuns DIRECTOR TRUST - SUSTAINABILITY ENGINEER, Derik Santiago Primary Care Provider DERIK WEBER Primary Care Unavailable EKVEN CHING Attending Unavailable Kuns DIRECTOR TRUST - SUSTAINABILITY ENGINEER, Derik Santiago Primary Care Provider LUCILA MOTA [...] HAY ., DR HARMAN Consulting Unavailable KATSUKHDEEP HNENESSY Consulting Unavailable NABILA, TONY Consulting Unavailable FAWWAD, [...] Admitting Unavailable PATRICIA WALSH Consulting Unavailable [facility], DR GOMEZ Primary Care Unavailable HAY ., DR HARMAN Attending Unavailable HAY ., DR HARMAN Admitting Unavailable NEWSTEWART, NICHOLAS Consulting Unavailable UNLU, SINDY Consulting Unavailable ROOPA ., DR GUTIERREZ Admitting Unavailable ROOPA ., DR GUTIERREZ Consulting Unavailable [facility] Primary Care Unavailable ROOPA ., [...] Unavailable HAY ., DR HARMAN Admitting Unavailable BRUONDOOT, NELI Consulting Unavailable Abdifatah Brady (Historical) Primary Care Provide r Unavailable Lamont Blair MD Primary Care Provider [phone] Lamont Blair MD Primary Care Provider [phone] Corine Gold MD Primary Care Provider [phone] Corine Gold MD Primary Care Provider Unavailable Primary Care Provider Unavailabl e Unallocated , Noms Provider Primary Care [facility] Corine Gold MD Primary Care Provider [...] Unavailable BIDDLECOM, SUZAN FRASER Referring Unava ilable Lmaont Blair MD Primary Care Provider Unallocatscott MORENO Noms Provider Primary Care Provi mahsa Lamont Blair MD Unavailable Allergies Allergy ClassificationReported Allergen(s)Allergy TypeDate of OnsetReaction(s) FacilityAnti-Epileptic Agents (1 source)levETIRAcetamDrug Flwlajs30-73-2835GuqlbysRgefrpqnq Clinic Work Phone: Cephalosporins (antibiotic) (1 source)CephalexinDrug Qmnnsyy61-20-2819VzmeXldtnaswh ClinicDextromethorphan / Pyrilamine (1 source)Dextromethorphan / PyrilamineDrug Hwxiwda42-52-0202RewgsTuxethkrz Clinic Work Phone: Dihydroergotamine (1 source)DihydroergotamineDrug Ehcuyeu91-57-5231PqgcolbotfaZlcfnkffe Clinic DOPamine Antagonists (1 source)MetoclopramideDrug Vnctxog38-69-6916BvdvnfrgpshHbwxjufat Clinic Macrolides (antibiotic) (1 source)AzithromycinDrug Pczwmdd65-91-1626Gjwec: See [facility] vortioxetine (1 source)vortioxetineDrug Goawjcc93-39-7488VlmabTgldmkwns Clinic (20 sources)Azithromycin; Translations: [AZITHROMYCIN]Drug Etklvew77-87-7983 Hives, Other: See [facility] (20 sources)carBAMazepineDrug Cawklsu15-29-1113Lsfuz (See Comments)[facility] (20 sources)Cephalexin; Translations: [CEPHALEXIN]Drug Taufcgb38-21-9093Zcrmy, RashMerWestern State Hospital (20 sources)Metoclopramide; Translations: [METOCLOPRAMIDE]Drug Qwwgdsb26-94-1548 Hives, Intolerance, Unknown, Rash, Other (See Comments)[facility] (20 sources)PropranololDrug Evzclfs55-91-3412Capii, Other (See Comments)[facility] (20 sources)Adhesive Tape-Silicones; Translations: [ADHESIVE TAPE-SILICONES]Drug Nihwagh75-66-3832CxyyKyyydjhtv Clinic (20 sources)Dextromethorphan / Pyrilamine; Translations: [PYRILAMINE-DEXTROMETHORPHAN]Drug Apahyxi22-27-7146ZaoqmRfhywwwxe Clinic Work Phone: (20 sources)vortioxetine; Translations: [VORTIOXETINE]Drug Mofsloo63-54-4009 [facility] Work Phone: (20 sources)Dihydroergotamine; Translations: [DIHYDROERGOTAMINE]Drug Allergy 36-97-3407Sobtjlgkwzb, GI intolerance, GI Disturbance, [facility] (1 source)AzithromycinDrug AllergyThe [facility] (1 source)bee venomDrug allergy (disorder)[facility] (1 source)CephalexinDrug AllergyThe [facility] (1 source)DesonideDrug AllergyThe [facility] (1 source)IothalamateDrug AllergyThe [facility] (2 sources)Propranolol; Translations: [PROPRANOLOL]Drug Fxhvvxa06-84-1943Hna [facility] (1 source)[place] DMDrug allergy (disorder)08-59-8308Mwo [facility] (20 sources)levETIRAcetam; Translations: [LEVETIRACETAM]Drug Jmrjahy36-36-0643 Itching, [facility] Work Phone: (1 source)ValproateDrug Ynhyzju12-20-2803TasyeJpdsevsab Clinic Work Phone: (20 sources)busPIRoneDrug Twcpzvz11-77-7459AqszbHMLU Healthcare Work Phone: (20 sources)CarbamazepineAllergy to tglizhpip14-34-6779WhpurpeVHVV Healthcare (20 sources)CiprofloxacinDrug Qrfkapl57-81-0877SxtwhGKDH Healthcare (20 sources)ClarithromycinAllergy to jabckifds96-70-7697DW intoleranceNOMS Healthcare (20 sources)ClindamycinDrug Mgyqiaf25-23-2594Gdmihky, HivesNOOR Healthcare (20 sources)DextromethorphanDrug Bvqwpvd19-69-3208JvvuwWJYS Healthcare (20 sources)Dextromethorphan / PyrilamineDrug Hwltvbh36-55-1097TjtwaFNGK Healthcare (20 sources)Honey bee venomAllergy to kkzhdiqhj64-50-6598XtknsrwUODI Healthcare (20 sources)LevetiracetamPropensity to adverse lsazhthjv11-85-7546KuchelvCOMV Healthcare (20 sources)PropranololDrug Vqaalhq16-15-6432Krpok, Other: See CommentsNOResearch Medical Center (20 sources)vortioxetineDrug Nihaiup90-44-0950PvuhfWRSI Healthcare (20 sources)OtherAllergy to aqejamsfd20-76-7006ZxtjtVUHA Healthcare (20 sources)Wound Dressing AdhesiveDrug Jyldkdi75-13-0045QggoKUPJ Healthcare (20 sources)Prochlorperazine; Translations: [PROCHLORPERAZINE]Drug Allergy 46-57-4602Imqgisyxfol, AnxietyWayne Healthcare Main Campus (20 sources)Adhesive agentPropensity to adverse reactions to qsve64-95-1947TxheElizabethtown Community Hospital System (20 sources)DexamethasoneDrug Wdlmjxi43-36-5839WbertLqeEnikrt Health System (20 sources)MetoclopramideDrug Ntgxbjm40-58-2405NcahuxkForest Health Medical Center System (20 sources)Bee Venom Protein (Honey Bee)Propensity to adverse reactions to drug 11-31-9953GwvjuzfdbcoLfjZfrovv Health System (20 sources)eptinezumab; Translations: [EPTINEZUMAB-[facility]]Drug Lgmdavp68-23-1624 Rash, ItchingWayne Healthcare Main Campus (6 sources)Adhesive agentPropensity to adverse reactions to iafn16-42-4887ZoapFormerly [facility] (1 source)AzithromycinDrug Qdehtly78-35-1551WjbbwgchhMercy Health [facility] (1 source)CephalexinDrug Cjcdlqk06-39-6423PfjwvizayMercy Health St. [facility] (1 source)levETIRAcetamDrug Olncgol20-49-2909VphcaqkiwMercy Health St. [facility] (1 source)MetoclopramideDrug Djzfype17-20-0028NojhmpwnqMercy Health St. [facility] (1 source)ProchlorperazineDrug Vyssawt43-15-3378OpiyuimhtMercy Health St. [facility] (5 sources)HaloperidolDrug Hzwrjse26-23-6225DonxoqsvejolowTuzHjaopg Health System (4 sources)AmoxicillinDrug Qgzxzye38-07-6895Jfdhe, DiarrheaProMedica Health System (4 sources)Amoxicillin / ClavulanateDrug Odvajxn44-49-8609Qunct, Diarrhea [facility] Medications Current Medications MedicationDrug Class(es)DatesSig (Normalized)Sig (Original)[id number] 200 actuat albuterol 0.09 mg/actuat metered dose inhaler (20 sources)beta2-Adrenergic AgonistStart: 61-07-9368owqm 2 puff(s) by mouth every four hours as neededalbuterol (VENTOLIN HFA) 90 mcg/actuation inhaler Indications: Moderate persistent asthma, unspecified whether complicated INHALE TWO PUFFS BY MOUTH EVERY 4 HOURS NEEDED 18 g 12/19/2024 ActiveStart: 05-27-2024 End: 79-03-1295spla 2 puff(s) by mouth every four hours as neededalbuterol (VENTOLIN HFA) 90 mcg/actuation inhaler Indications: Moderate persistent asthma, unspecified whether complicated INHALE TWO PUFFS BY MOUTH EVERY 4 HOURS NEEDED 18 g 11 09/30/2024 ActiveStart: 91-84-6288grna 2 puff(s) by inhalation every four hoursalbuterol HFA 90 mcg/act inhaler Inhale 2 puffs every 4 (four) hours if needed 05/27/2024 ActiveStart: 78-18-3826lapo 3 mL by inhalation four times daily as needed for wheezingalbuterol (PROVENTIL,VENTOLIN) 2.5 mg /3 mL (0.083 %) nebulizer solution Indications: Moderate asthma with acute exacerbation, unspecified whether persistent Inhale 3 mL (2.5 mg total) by nebulization 4 (four) times a day as needed for wheezing. 360 mL 10 03/20/2024 ActiveStart: 55-10-3336nfugzaftb (2.5 MG/3ML) 0.083% nebulizer solution Inhale 2.5 mg 4 (four) times a day as needed 03/20/2024 ActiveStart: 12-12-2023 End: 41-43-5110uhmi 2 puff(s) by inhalation every four hours for wheezing albuterol HFA 90 mcg/act inhaler Indications: Severe persistent asthma without complication (CMS/HCC) Inhale 2 puffs every 4 (four) hours if needed for wheezing or shortness of breath 8.5 g 3 12/12/2023 02/28/2024 DiscontinuedStart: 18-60-3021vdkp 2 puff(s) by inhalation every six hours as needed for wheezing albuterol sulfate 90 mcg/actuation breath activated powder inhaler Inhale 2 Puffs as instructed every 6 hours as needed for wheezing/shortness of breath. 08/16/2023 ActiveStart: 03-04-2023 End: 04-25-1783xvouamlsp (2.5 MG/3ML) 0.083% nebulizer solution Indications: Severe persistent asthma without complication (CMS/HCC) Take 3 mL (2.5 mg) by nebulization every 6 (six) hours if needed for wheezing 75 mL 1 03/04/2023 02/28/2024 DiscontinuedStart: 03-04-2023 End: 64-83-2360mvar 2 puff(s) by inhalation every four hours for wheezing albuterol HFA 90 mcg/act inhaler Indications: Severe persistent asthma without complication (CMS/HCC) Inhale 2 puffs every 4 (four) hours if needed for wheezing 8.5 g 3 11/06/2023 12/06/2023 ActiveStart: 06-07-2022 End: 50-81-0605kfby 2 puff(s) by mouth every four hours as neededalbuterol (VENTOLIN HFA) 90 mcg/actuation inhaler Indications: Moderate persistent asthma, unspecified whether complicated INHALE TWO PUFFS BY MOUTH EVERY 4 HOURS NEEDED 18 g 3 05/01/2024 05/24/2024 Discontinued (Reorder)Start: 06-07-2022 End: 80-73-6222ksby 0.63 mg by inhalation every six hours as needed for wheezing and dyspnea and dyspneaalbuterol (ACCUNEB) 0.63 mg/3 mL nebulizer solution Indications: SOB (shortness of breath) Inhale 3mL (0.63 mg total) by nebulization every 6 (six) hours as needed for wheezing. 75 mL 1 06/07/2022 Discontinuedamitriptyline hydrochloride 100 mg oral tablet (5 sources)Tricyclic AntidepressantStart: 53-56-0573mxdq 1 tablet by mouth at bedtimeamitriptyline (Elavil) 100 MG tablet Take 100 mg by mouth at bedtime 06/24/2024 Activeamoxicillin 500 mg oral capsule (1 source)Penicillin-class AntibacterialStart: 10-24-2024 End: 72-64-8548psus 1 capsule by mouth three times dailyamoxicillin (AMOXIL) 500 mg capsule Indications: Left otitis media, unspecified otitis media type Take 1 capsule (500 mg total) by mouth 3 (three) times a day for 7 days. 21 capsule 10/24/2024 10/31/2024 Activeamoxicillin 875 mg / clavulanate 125 mg oral tablet (6 sources)Penicillin-class AntibacterialStart: 05-21-2024 End: 78-16-9511djyn 1 tablet by mouth once in the morningamoxicillin-pot clavulanate (AUGMENTIN) 875-125 mg per tablet Indications: Moderate persistent asthma with acute exacerbation , Acute pansinusitis, recurrence not specified Take 1 tablet by mouth in the morning and 1 tablet before bedtime. Do all this for 10 days. 20 tablet 05/21/2024 05/31/2024 ActiveStart: 04-10-2024 End: 12-98-0996kfcr 1 tablet by mouth every eight hoursamoxicillin-pot clavulanate (AUGMENTIN) 875-125 mg per tablet Take 1 tablet by mouth every 8 (eight) hours for 7 days. 21 tablet 04/10/2024 04/17/2024 Activebaclofen 10 mg oral tablet (20 sources)gamma-Aminobutyric Acid-ergic AgonistStart: 04-25-2024 End: 86-92-7967qzbv 1 tablet by mouth once dailybaclofen (LIORESAL) 10 mg tablet Indications: Muscle spasm TAKE 1 TABLET BY MOUTH NIGHTLY 30 tablet3 10/02/2024 ActiveStart: 11-10-2023 End: 97-51-1393hswp 1 tablet by mouth in the morning, [...] 90 tablet 2 11/10/2023 ActiveStart: 07-14-2023 End: 73-54-6270makr 1 tablet by mouth in the morning, [...] 90 tablet 2 07/14/2023 ActiveStart: 11-22-2021 End: 13-39-8464gstv 1 tablet by mouth three times daily at bedtimebaclofen (Lioresal) 10 MG tablet Indications: Pelvic pain in female TAKE 1 TABLET BY MOUTH THREE TIMES DAILY (IN THE MORNING, IN THE EVENING and BEFORE bedtime) 90 tablet 2 02/15/2024 02/28/2024 DiscontinuedComment on above:Take 10 mg by mouth three times a day as needed.benzonatate 200 mg oral capsule (16 sources)Non-narcotic AntitussiveStart: 12-12-2023 End: 34-24-3600oedp 1 capsule by mouth three times daily as needed for cough benzonatate (Tessalon) 200 MG capsule Indications: COVID-19 Take 1 capsule (200 mg) by mouth 3 (three) times a day as needed for cough Do not crush or chew. 30 capsule 1 01/24/2024 02/28/2024 Discontinuedonabotulinumtoxina 200 unt injection (20 sources)Acetylcholine Release InhibitorStart: 53-49-6773zkemxmcooqkv toxin type A 200 Units injection (BOTOX)budesonide 0.5 mg/ml inhalation suspension (2 sources)CorticosteroidStart: 68-72-9430kexe 2 mL by inhalation in the morning budesonide (PULMICORT) 1 mg/2 mL nebulizer solution Indications: Moderate persistent asthma withoutcomplication Inhale 2 mL (1 mg total) by nebulization in the morning. 60 mL 6 12/17/2024 Fwaodj33 hr carBAMazepine 100 mg extended release oral tablet (7 sources)Mood StabilizerStart: 82-01-3882eugr 2 tablets by mouth in the morning, then take 2 tablets by mouth every twelve hours at bedtimecarBAMazepine XR (TEGretol XR) 100 mg 12 hr tablet Take 2 tablets (200 mg total) by mouth in the morning and 2 tablets (200 mg total) before bedtime. 120 tablet 11/25/2024 ActiveStart: 49-86-6563xthm 1 tablet by mouth in the morning, then take 1 tablet by mouth every twelve hours at bedtimecarBAMazepine XR (TEGretol XR) 100 MG 12 hr tablet Take 100 mg by mouth in the morning and 100 mg before bedtime. 08/28/2024 Activecetirizine hydrochloride 10 mg oral tablet (20 sources)Histamine-1 Receptor AntagonistStart: 06-08-2022 End: 95-24-0293lvbm 1 tablet by mouth in the morningcetirizine (ZyrTEC) 10 mg tablet Take 1 tablet (10 mg total) by mouth in the morning. 30 tablet 06/08/2022 Activechlorzoxazone 500 mg oral tablet (20 sources)Muscle RelaxantStart: 07-10-2023 End: 95-48-5957odxx 1 tablet by mouth twice daily as needed for muscle spasms chlorzoxazone (Parafon Forte) 500 MG tablet Take 500 mg by mouth 2 (two) times a day as needed for muscle spasms 05/31/2024 ActiveStart: 10-12-2022 End: 55-31-8562mylv 1 tablet by mouth three times daily [...] forrescue. 30 tablet 0 12/09/2022 Active End: 57-05-9414jpsa 1 tablet by mouth four times daily as neededchlorzoxazone (PARAFON FORTE) 500 mg tablet Take 1 tablet (500 mg total) by mouth 4 (four) times a day as needed. 04/25/2024 DiscontinuedComment on above:Take 1 tablet by mouth up to three times a day as needed, immediately at onset of headache for rescue.clindamycin 300 mg oral capsule (2 sources)Lincosamide AntibacterialStart: 04-02-2024 End: 85-47-5805ryla 1 capsule by mouth in the morning, [...] mg oral tablet (3 sources)CorticosteroidStart: 12-12-2023 End: 49-95-5759emvf 1 tablet by mouth once dailydexAMETHasone (Decadron) 6 MG tablet Indications: COVID-19 Take 1 tablet (6 mg) by mouth Daily for 6 days 6 tablet 12/12/2023 01/09/2024 Discontinueddexamethasone 1 mg/ml / tobramycin 3 mg/ml ophthalmic suspension (11 sources)Aminoglycoside Antibacterial, CorticosteroidStart: 05-12-2023 End: 12-73-7531dpax 1 drop(s) into the eye(s) every six hourstobramycin- dexAMETHasone (Tobradex) ophthalmic suspension instill 1 drop into both eyes every 6 hours for 7 days 05/12/2023 01/09/2024 DiscontinueddiazePAM 5 mg oral tablet (20 sources)BenzodiazepineStart: 03-28-2024 End: 31-51-8478knxcvZHO (VALIUM) tablet 5 mgStart: 11-23-2021 End: 84-90-9991boyrbXWY (VALIUM) 10 mg tablet 11/23/2021 Activetake 0.5 tablet by mouth at bedtimediazePAM (VALIUM) 10 mg tablet Take 0.5 tablets (5 mg total) by mouth in the morning and at bedtime. Active End: 63-09-2851rtjjdLCF (Valium) 2 MG tablet Take by mouth every 8 (eight) hours if needed for anxiety. 01/09/2024iscontinuedtake 1 tablet by mouth every six hours as needed for anxietydiazePAM (VALIUM) 5 MG tablet Take 5 mg by mouth every 6 hours as needed for Anxiety. 0 Suspendeddoxycycline hyclate 100 mg oral tablet (6 sources)Tetracycline-class DrugStart: 01-23-2024 End: 61-81-7806ysllqrmtphh (Vibra-Tabs) 100 MG tablet Indications: Mild persistent asthma with (acute) exacerbation (CMS/HCC) Take 1 tablet (100 mg) by mouth in the morning and 1 tablet (100 mg) before bedtime. Do all this for 10 days. Take with a full glass of water and do not lie down for at least 30 minutes after.. 20 tablet 01/23/2024 02/09/2024 Ibmpryxgxjhckpd901372 0.3 ml EPINEPHrine 1 mg/ml auto-injector (20 sources)alpha-Adrenergic Agonist, beta-Adrenergic Agonist, Catecholamine Start: 20-94-0246OLPPKGUbwml (EPIPEN) 0.3 mg/0.3 mL auto-injector Indications: Allergic reaction, sequela 0.3 mL (0.3 mg total) by other route as needed (exposure to allergen). 2 each 1 08/26/2024 ActiveStart: 06-07-2022 End: 50-90-8898VQFIURMdzre (EPIPEN) 0.3 mg/0.3 mL auto-injector 0.3 mL (0.3 mg total) by other route as needed (exposure to allergen). 2 each 1 06/07/2022 04/25/2024 Discontinuedestradiol 1 mg oral tablet (20 sources)EstrogenStart: 05-15-2024 End: 76-40-5528wxpt 1 tablet by mouth in the morningestradioL (ESTRACE) 1 mg tablet Indications: Menopausal symptoms Take 1 tablet (1 mg total) by mouth in the morning. 30 tablet 3 05/15/2024 ActiveStart: 04-15-2024 End: 27-50-0711txlleujoV (VIVELLE-DOT) 0.05 mg/24 hr Indications: Menopausal symptoms Place 1 patch on the skin 2 (two) times a week. 8 patch 04/15/2024 04/25/2024 DiscontinuedStart: 04-11-2024 End: 96-97-0788qkcqloabC (VIVELLE-DOT) 0.0375 mg/[address] 1 patch [...] between applications chicho particular site.Start: 06-29-2023 End: 93-22-2167uysa 1 tablet by mouth once daily in the morningestradiol (Estrace) 1 MG tablet Indications: Vaginal discharge , Pelvic pain in female take 1 tablet by mouth every morning 30 tablet 3 06/29/2023 02/28/2024 Discontinuedfluticasone propionate 0.05 mg/actuat metered dose nasal spray (20 sources)CorticosteroidStart: 42-74-4159slhr 1 spray(s) nasal route every other dayfluticasone propionate (FLONASE) 50 mcg/actuation nasal spray Indications: Seasonal allergic rhinitis, unspecified trigger administer 1 spray IN EACH NOSTRIL EVERY OTHER DAY 16 g 2 06/10/2024 ActiveStart: 40-59-0954opvv 1 spray(s) nasal route once dailyfluticasone (Flonase) 50 MCG/ACT nasal spray Administer 1 spray into each nostril Daily 06/10/2024 ActiveStart: 06-06-2024 End: 84-18-4056mlef 1 spray(s) nasal route every other dayfluticasone propionate (FLONASE) 50 mcg/actuation nasal spray Indications: Seasonal allergic rhinitis, unspecified trigger Administer 1 spray into each nostril every other day. 18.2 mL 2 06/06/2024 06/10/2024 Pmqwrvwvdlxaaovzpipyudm-zqruprdlb-fwobyfqp (TRELEGY ELLIPTA) 200-62.5-25 mcg blister with device (20 sources)Start: 03-20-2024 End: 65-97-8116jryp 1 puff(s) by inhalation in the morning domyomyphgv-gwywtiuqd-aopmoqmy (TRELEGY ELLIPTA) 200-62.5-25 mcg blister with device Indications: Moderate asthma with acute exacerbation, unspecified whether persistent Inhale 1 puff in the morning.60 each 03/20/2024 12/10/2024 DiscontinuedStart: 42-75-9127rnnw 1 puff(s) by inhalation in the morning wrtrtseajby-uymosnejg-dtkemfdu (TRELEGY ELLIPTA) 200-62.5-25 mcg blister with device Indications: Moderate asthma with acute exacerbation, unspecified whether persistent Inhale 1 puff in the morning.60 each 03/20/2024Start: 03-20-2024 take 1 puff(s) by inhalation in the twmwxgirmzbzwdpems-hsawgkuzt-vsnjmvyx (TRELEGY ELLIPTA) 200-62.5-25 mcg blister with device Indications: Moderate asthma with acute exacerbation, unspecified whether persistent Inhale 1 puff in the morning.60 each 11 03/20/2024 Gxegadqnsitodmpth-dvafuomrd-naskckoh (TRELEGY ELLIPTA) 200-62.5-25 mcg blister with device (5 sources)Start: 58-13-7773ugky 1 puff(s) by mouth in the morning eccwwjujnbu-yoipexetf-jyxtjzwo (TRELEGY ELLIPTA) 200-62.5-25 mcg blister with device Indications: Moderate asthma with acute exacerbation, unspecified whether persistent INHALE 1 PUFF BY MOUTH IN THEMORNING 60 each 12/10/2024 Hplcuc27 actuat formoterol fumarate 0.005 mg/actuat / mometasone furoate 0.1 mg/actuat metered dose inhaler (20 sources)Corticosteroid, beta2-Adrenergic AgonistStart: 04-26-2023 End: 92-54-4116nqae 2 puff(s) by inhalation in the morningDulera 100-5 MCG/ACT inhaler Inhale 2 puffs in the morning and 2 puffs before bedtime. 04/26/2023 Discontinuedfurosemide 40 mg oral tablet (10 sources)Loop DiureticStart: 01-23-2024 End: 16-23-1290voms 1 tablet by mouth once daily as needed for edemafurosemide (Lasix) 40 MG tablet Indications: Generalized edema Take 1 tablet (40 mg) by mouth Dailyas needed (Edema) 30 tablet 3 01/23/2024 02/28/2024 Axhsviklsveh53 hr guaiFENesin 600 mg extended release oral tablet (9 sources)Start: 10-24-2024 End: 38-12-8003jxbm 1 tablet by mouth onceguaiFENesin (MUCINEX) 600 mg tablet extended release 12hr Take 1 tablet (600 mg total) by mouth every 12 (twelve) hours for 10 days. 20 tablet 10/24/2024 11/03/2024 ActiveStart: 04-21-2022 End: 08-10-2269orhq 1 tablet by mouth onceguaiFENesin (MUCINEX) 600 mg tablet extended release 12hr Take 1 tablet (600 mg total) by mouth every 12 (twelve) hours. 60 tablet 1 04/21/2022 03/25/2024 Discontinued (Therapy completed) Hydrocortisone (3 sources)CorticosteroidStart: 09-25-2023 End: 84-48-6408Pjzkpljaccurzv 2 % cream Indications: Rash Apply 1 application topically in the morning and 1 application before bedtime. 28 g 09/25/2023 10/25/2023 Activehydrocortisone 10 mg/ml / neomycin 3.5 mg/ml / polymyxin b 74426 unt/ml otic solution (1 source)Aminoglycoside Antibacterial, Polymyxin-class Antibacterial, CorticosteroidStart: 10-24-2024 End: 33-25-3870invvhrki-polymyxin-HC (CORTISPORIN) otic solution Indications: Left otitis media, unspecified otitis media type Administer 3 drops into the left ear 3 (three) times a day for 7 days. 10 mL Active ibuprofen 800 mg oral tablet (20 sources)Nonsteroidal Anti-inflammatory DrugStart: 72-89-2439ecil 1 tablet by mouth every six hours as needed for painibuprofen 800 MG tablet Take 800 mg by mouth every 6 (six) hours if needed for moderate pain 04/15/2024 ActiveStart: 04-08-2024 End: 74-61-8396btgl 1 tablet by mouth every six hours as needed for nfoy734 mg, oral, Every 6 hours PRN, moderate pain - pain scale 4-6, Starting on Mon04/08/24 at 1825, Look-alike/sound-alike medication - verify indication for use. Take/Give with food or milk.Start: 02-10-2024 End: 00-41-9706ejjf 1 tablet by mouth three times dailyibuprofen (MOTRIN) 800 mg tablet Indications: Post-op pain Take 1 tablet (800 mg total) by mouth 3 ( three) times a day. 21 tablet 04/15/2024 Activeketoconazole 20 mg/ml medicated shampoo (20 sources)Azole AntifungalStart: 14-17-1419ldtmainqyvjp (NIZORAL) 2 % shampoo Apply 1 Application topically 2 (two) times a week. Apply to damp skin, lather, leave on 5 minutes, and rinse 120 mL 04/25/2024 ActiveStart: 11-26-2021 End: 11-22-6413faxosdxzcbpp (NIZORAL) 2 % shampoo APPLY TO AFFECTED AREA(S) LATHER AND LEAVE IN PLACE FOR 5 MINUTES AND THEN RINSE OFF WITH WATER. DO THIS 2 TIMES A WEEK FOR 4 WEEKS 120 mL 11/26/2021 04/25/2024 Heudhocpubtn148 actuat levalbuterol 0.045 mg/actuat metered dose inhaler (9 sources)beta2-Adrenergic AgonistStart: 16-25-4009vcem 1-2 puff(s) by inhalation every four hours as needed for wheezinglevalbuterol (XOPENEX HFA) 45 mcg/actuation inhaler Indications: Moderate persistent asthma without complication Inhale 1-2 puffs every 4 (four) hours as needed for wheezing. 15 g 11 12/20/2024 ActiveStart: 01-27-2022 End: 69-55-4438indr 1-2 puff(s) by inhalation every four hours as needed for wheezinglevalbuterol (XOPENEX HFA) 45 mcg/actuation inhaler Inhale 1-2 puffs every 4 (four) hours as neededfor wheezing. 15 g 1 01/27/2022 03/25/2024 Discontinued (Therapy completed)lidocaine 0.05 mg/mg topical ointment (20 sources)Antiarrhythmic, Amide Local AnestheticStart: 40-53-8172bofsxdydn (XYLOCAINE) 5 % ointment Indications: Post-operative pain Apply 1 Application topically as needed for pain. 35.44 g 04/24/2024 ActiveStart: 10-20-2021 lidocaine 4 % external patch 1 patchloperamide hydrochloride 2 mg oral capsule (1 source)Opioid AgonistStart: 98-87-6404dehpuylilo (IMODIUM) capsule 2 mg loratadine 10 mg oral tablet (19 sources)Start: 58-85-1543hzzp 1 tablet by mouth once daily as needed loratadine (CLARITIN) 10 mg tablet Indications: Seasonal allergic rhinitis, unspecified trigger Take 1 tablet (10 mg total) by mouth daily as needed for allergies. 90 tablet 1 06/06/2024 Beuwpc65 hr loratadine 10 mg / pseudoephedrine sulfate 240 mg extended release oral tablet (6 sources)alpha-Adrenergic AgonistStart: 86-60-9795qhor 1 tablet by mouth once in the morning, then take 1 tablet by mouth every twenty-four hoursloratadine- pseudoephedrine (CLARITIN-D 24-hour) 10-240 mg per 24 hr tablet Indications: Moderate persistent asthma without complication , Seasonal allergic rhinitis, unspecified trigger Take 1 tabletby mouth in the morning. 30 tablet 2 12/20/2024 ActiveStart: 05-21-2024 End: 69-74-4872jfik 1 tablet by mouth once in the morning, then take 1 tablet by mouth every twenty-four hoursloratadine-pseudoephedrine (CLARITIN-D 24-hour) 10-240 mg per 24 hr tablet Indications: Acute pansinusitis, recurrence not specified Take 1 tablet by mouth in the morning for 21 days. 21 tablet 202406/11/2024 ActiveLumateperone Tosylate (Caplyta) 10.5 MG capsule (11 sources) End: 75-29-5147bxoc 1 capsule by mouth in the morningLumateperone Tosylate (Caplyta) 10.5 MG capsule Take 10.5 mg by mouth in the morning. 01/09/2024 Dis continuedtake 1 capsule by mouth in the morningLumateperone Tosylate (Caplyta) 10.5 MG capsule Take 10.5 mg by mouth in the morning. Activemagnesium oxide 400 mg oral capsule (20 sources)Start: 40-24-8520vnmp 1 capsule by mouth once daily at bedtime magnesium oxide 400 mg magnesium cap Take 1 capsule by mouth daily at bedtime. 90 capsule 3 06/04/2024 ActiveStart: 07-10-2023 End: 20-16-0027ccej 1 capsule by mouth once daily at bedtimemagnesium oxide 400 mg magnesium cap Take 1 capsule by mouth daily at bedtime. 90 capsule 3 07/10/19 24 05/31/2024 DiscontinuedComment on above:magnesium 400 mg (as magnesium oxide) capsulemethocarbamol 500 mg oral tablet (3 sources)Muscle RelaxantStart: 09-12-2022 End: 17-81-2523bvtm 1 tablet by mouth twice dailymethocarbamol (ROBAXIN) 500 mg tablet Take 1 tablet by mouth twice daily. 60 tablet 2 09/12/2022 10/12/2022 Discontinued (Lack of Efficacy)Comment on above:Take 1 tablet by mouth twice daily.metroNIDAZOLE 500 mg oral tablet (3 sources)Nitroimidazole AntimicrobialStart: 07-01-2024 End: 16-40-6133pqeh 1 tablet by mouth in the morningmetroNIDAZOLE (Flagyl) 500 MG tablet Indications: BV (bacterial vaginosis) Take 1 tablet (500 mg) by mouth in the morning and 1 tablet (500 mg) before bedtime. Do all this for 7 days. Do not drink alcohol while taking this medication. 14 tablet 07/01/2024 07/08/2024 ActiveStart: 04-08-2024 End: 86-98-6785694 mg, intravenous, at 100 mL/hr, Administer over 60 Minutes, Once, On Mon04/08/24 at 1450, For 1 dose, Look-alike/sound-alike medication - verify indication for use., Indication: Intra-abdominalmineral oil 0.03 mg/mg / petrolatum 0.94 mg/mg ophthalmic ointment (1 source)Start: 70-36-5541sjmxq petrolatum-mineral oiL (SYSTANE NIGHTTIME) 94-3 % ointment Indications: Watery eyes Administer 1 Application (0.25 inches total) to both eyes nightly. 3.5 g 1 12/20/2024 Activemupirocin 0.02 mg/mg topical ointment (13 sources)RNA Synthetase Inhibitor AntibacterialStart: 12-73-5288xdgvhviae (BACTROBAN) 2 % ointment Indications: Eye infection, bilateral Apply 1 Application topically in the morning and 1 Application before bedtime. 22 g 1 07/24/2024 ActiveStart: 05-02-2024 End: 70-15-7275taziytyzp (BACTROBAN) 2 % ointment Indications: Postoperative infection, unspecified type, subsequent encounter Apply 1 Application topically in the morning and 1 Application before bedtime. Do all this for 7 days. 30 g 05/02/2024 05/02/2024 Discontinued (Reorder)Nirmatrelvir&Ritonavir 300/100 (Paxlovid, 300/100,) 20 x 150 MG & 10 x 100MG tablet therapypack (3 sources)Start: 12-12-2023 End: 33-55-4831Duvggyirpblc&Ritonavir 300/100 (Paxlovid, 300/100,) 20 x 150 MG & 10 x 100MG tablet therapypack Indications: COVID-19 Take 1 each by mouth See administration instructions 1 each 12/12/2023 01/09/2024 DiscontinuedStart: 22-07-7792Xdqbbegpqwgj&Ritonavir 300/100 (Paxlovid, 300/100,) 20 x 150 MG & 10 x 100MG tablet therapypack Indications: COVID-19 Take 1 each by mouth See administration instructions 1 each 12/12/2023 Activeomeprazole 40 mg delayed release oral capsule (20 sources)Proton Pump InhibitorStart: 03-20-2024 End: 99-10-3428ynfk 1 capsule by mouth at bedtimeomeprazole (PriLOSEC) 40 mg capsule Indications: Gastroesophageal reflux disease without esophagitis Take 1 capsule (40 mg total) by mouth in the morning and at bedtime. 60 capsule 3 12/17/2024 ActiveStart: 01-27-2022 End: 15-14-0163rtov 1 capsule by mouth in the morningomeprazole (PriLOSEC) 20 mg capsule Take 1 capsule (20 mg total) by mouth in the morning. 30 capsule 1 01/27/2022 04/08/2024 Discontinued (Therapy completed)ondansetron (ZOFRAN-ODT) disintegrating tablet 4 mg (1 source)Start: 48-78-5365ofpasgxdlvy (ZOFRAN-ODT) disintegrating tablet 4 mg12 hr orphenadrine citrate 100 mg extended release oral tablet (20 sources)Muscle RelaxantStart: 03-17-2023 End: 44-29-6098tnlp 1 tablet by mouth twice daily as needed, then take 1 tablet by mouth every twelve hours as neededorphenadrine (Norflex) 100 MG 12 hr tablet Take 100 mg by mouth 2 (two) times a day as needed 04/26/2023 02/28/2024 DiscontinuedStart: 52-48-9360erjn 1 tablet by mouth every twelve hours as needed orphenadrine ER (NORFLEX) 100 mg tablet Take 1 tablet by mouth two times a day as needed. 30 tablet5 12/12/2022 ActiveComment on above:Take 1 tablet by mouth two times a day as needed.oxyCODONE hydrochloride 5 mg oral tablet (20 sources)Opioid AgonistStart: 04-29-2024 End: 23-76-7555zjln 1 tablet by mouth every six hours [...] 12 tablet 04/29/2024 05/02/2024 ActiveStart: 03-28-2024 End: 06-74-5039iqsy 1 tablet by mouth every four hours [...] glycol 3 mg/ml ophthalmic solution (2 sources)Start: 26-10-4250fpy 400-propylene glycol, PF, (SYSTANE ULTRA, PF,) 0.4-0.3 % dropperette Indications: Watery eyes Administer 1 drop to both eyes 3 (three) times a day. 30 each 1 12/20/2024 ActiveStart: 12-20-2024 End: 23-07-2979xar 400-propylene glycol, PF, (SYSTANE ULTRA, PF,) 0.4-0.3 % dropperette Indications: Watery eyes Administer 1 drop to both eyes as needed (for watery eyes and burning). 30 each 1 12/20/2024 12/20/2024 Discontinued polymyxin b 69512 unt/ml / trimethoprim 1 mg/ml ophthalmic solution (3 sources)Dihydrofolate Reductase Inhibitor Antibacterial, Polymyxin-class AntibacterialStart: 56-41-3255zxbsjtjcctkl-polymyxin b (Polytrim) ophthalmic solution 07/24/2024 ActiveStart: 07-24-2024 End: 53-71-1936oajgdvajtuvo-polymyxin B (POLYTRIM) 10,000 unit- 1 mg/mL drops Indications: Eye infection, bilateral Administer 1 drop to both eyes in the morning and 1 drop at noon and 1 drop in the evening and 1 drop before bedtime. Do all this for 5 days. 10 mL 07/24/2024 07/29/2024 Activemicroencapsulated potassium chloride 20 meq extended release oral tablet (2 sources)Start: 03-26-2024 End: 99-72-7712bgcs 1 tablet by mouth in the morningpotassium chloride (KLOR-CON M 20) 20 MEQ CR tablet Take 1 tablet (20 mEq total) by mouth in the morning for 2 days. 2 tablet 03/26/2024 03/28/2024 ActivepredniSONE 10 mg oral tablet (18 sources)Start: 59-15-6545ygqtebHQBE (DELTASONE) 10 mg tablet Indications: Moderate persistent asthma without complication Take 3 tablets once daily for 3 days, then 2 tablets once daily for 3 days then 1 tablet daily 19 tablet 12/20/2024 ActiveStart: 10-24-2024 End: 68-86-3702vdph 2 tablets by mouth in the morningpredniSONE (DELTASONE) 20 mg tablet Indications: Mild asthma with exacerbation, unspecified whether persistent Take 2 tablets (40 mg total) by mouth in the morning for 5 days. 10 tablet 10/24/2024 10/29/2024 ActiveStart: 05-21-2024 End: 84-32-7122mecs 1 tablet by mouth in the morningpredniSONE (DELTASONE) 20 mg tablet Indications: Moderate persistent asthma with acute exacerbationTake 1 tablet (20 mg total) by mouth in the morning for 5 days. 5 tablet 05/21/2024 05/26/2024 ActiveStart: 01-23-2024 End: 91-96-5214qqwc 1 tablet by mouth once dailypredniSONE (Deltasone) 50 MG tablet Indications: Mild persistent asthma with (acute) exacerbation (CMS/HCC) Take 1 tablet (50 mg) by mouth Daily for 6 days 6 tablet 01/23/2024 01/29/2024 ActiveStart: 67-46-9390teht 6 tablets by mouth once daily, then [...] x 3 days 39 tablet 11/15/2023 ActiveStart: 86-17-6482pheg 6 tablets by mouth once daily, then [...] days 39 tablet 11/15/2023 ActiveStart: 10-10-2023 End: 90-91-0532haia 6 tablets by mouth once daily, then [...] mg oral capsule (2 sources)ProgesteroneStart: 09-03-2024 End: 21-96-8657coow 1 capsule by mouth once dailyprogesterone (Prometrium) 100 MG capsule Indications: Hot flashes due to surgical menopause Take 1 capsule (100 mg) by mouth Daily 30 capsule 11 09/03/2024 09/03/2025 Activepromethazine hydrochloride 25 mg oral tablet (20 sources)PhenothiazineStart: 06-04-2024 End: 29-54-6780orfj 1 tablet by mouth every four hours as needed for nausea promethazine (PHENERGAN) 25 mg tablet Indications: Intractable chronic migraine without aura and without status migrainosus Take 1 tablet by mouth every 4 hours as needed. FOR NAUSEA 90 tablet 5 06/04/2024 ActiveStart: 08-18-2023 End: 97-90-5990pmcb 1 tablet by mouth every four hours as needed for nausea promethazine (PHENERGAN) 25 mg tablet Indications: Intractable chronic migraine without aura and without status migrainosus Take 1 tablet by mouth every 4 hours as needed. FOR NAUSEA 90 tablet 5 11/10/2023 05/31/2024 DiscontinuedStart: 05-13-2023 End: 06-70-4656obdh 1 tablet by mouth every six hours as needed for nausea and vomitingpromethazine (PHENERGAN) 25 mg tablet Take 1 tablet (25 mg total) by mouth every 6 (six) hours as needed for nausea or vomiting. 15 tablet 08/10/2023 04/25/2024 DiscontinuedStart: 03-17-2023 End: 20-84-2572vogx 1 tablet by mouth every six hours as neededpromethazine (Phenergan) 12.5 MG tablet Take 12.5 mg by mouth every 6 (six) hours if needed 04/02/2023 02/28/2024 DiscontinuedStart: 06-22-2022 End: 85-64-6851kltq 1 tablet by mouth every six hours as neededpromethazine (PHENERGAN) 12.5 mg tablet Take 1 tablet by mouth every 6 hours as needed. 90 tablet Active End: 26-57-9207cjgh 25 mg rectal route every six hours as needed for nausea and vomitingpromethazine (Phenergan) 25 MG suppository Insert 25 mg into the rectum every 6 (six) hours if needed for nausea or vomiting ActiveComment on above:Take 12.5 mg by mouth every 6 hours as needed.Take 1 tablet by mouth every 6 hours as needed.72 hr scopolamine 0.0139 mg/hr transdermal system (20 sources)AnticholinergicStart: 06-35-7050ienymoduvbk (TRANSDERM-SCOP) patch 1.5 mg/72 hr (delivers 1 mg over 3 days) Indications: Intractable chronic migraine without aura and with status migrainosus , Nausea Apply 1 Patch as directed every72 hours. APPLY 1 DISC BEHIND THE EAR AT LEAST 4 HOURS PRIOR TO EXPOSURE AND EVERY 3 DAYS NEEDED. 4 Patch 2 05/10/2024 ActiveStart: 03-18-2024 End: 55-42-0997tnibd 1 dose transdermal route once dailyscopolamine (TRANSDERM- SCOP) 1 mg/[address] 1 patch on the skin every third day. 05/10/2024 Active scopolamine (Transderm-Scop) 1 mg/72 hr patch [address] 1 patch on the skin every 3rd (third) day Activeterconazole 4 mg/ml vaginal cream (1 source)Azole AntifungalStart: 01-15-2024 End: 16-65-8090nxoanffcmkd (Terazol 7) 0.4 % vaginal cream Indications: Yeast infection Insert 1 applicator into the vagina at bedtime for 7 days 45 g 01/15/2024 01/22/2024 Acwzfx82 actuat tiotropium 0.11909 mg/actuat inhalation spray (20 sources)AnticholinergicStart: 04-26-2023 End: 53-36-2976Chypelh Respimat 1.25 MCG/ACT inhaler inhale 2 puffs by mouth once daily 04/26/2023 02/28/2024 DiscontinuedtraMADol hydrochloride 50 mg oral tablet (8 sources)Opioid AgonistStart: 01-09-2024 End: 88-57-1055zhxd 1 tablet by mouth four times daily as needed for pain traMADol (Ultram) 50 MG tablet Indications: Pain, dental Take 1 tablet (50 mg) by mouth 4 (four) times a day as needed for severe pain for up to 7 days 28 tablet 01/22/2024 01/29/2024 Activeubrogepant 100 mg oral tablet (20 sources)Start: 05-03-2024 End: 03-97-5973jdrdyovadh (UBRELVY) 100 mg tablet 05/03/2024 Activezavegepant (ZAVZPRET) 10 mg/actuation nasal spray (6 sources)Start: 46-75-3892mydigmovem (ZAVZPRET) 10 mg/actuation nasal spray Indications: Intractable chronic migraine withoutaura and with status migrainosus Use one nasal spray at migraine onset. May use once per 24 hours. 6 each 08/08/2024 8:59 AM EDT 08/02/2024 ActiveStart: 79-68-5934njxumzmstu (ZAVZPRET) 10 mg/actuation nasal spray Indications: Intractable chronic migraine withoutaura and with status migrainosus Use one nasal spray at migraine onset. May use once per 24 hours. 6 each 08/02/2024 ActiveZOLMitriptan 5 mg/actuat nasal spray (20 sources)Serotonin-1b and Serotonin-1d Receptor AgonistStart: 06-04-2024 ZOLMitriptan (ZOMIG) 5 mg nasal spray Use 1 Thompson in the nose as needed at onset of migraine headache. If symptoms persist or return, may repeat dose in other nostril after 2 hours. Maximum of 2 sprays per 24 hours 12 each 06/04/2024 ActiveStart: 03-17-2023 End: 23-18-1692MYJFrlfrdhjb (ZOMIG) 5 mg nasal spray Use 1 Thompson in the nose as needed at onset of migraine headache. If symptoms persist or return, may repeat dose in other nostril after 2 hours. Maximum of 2 sprays per 24 hours 12 Each 5 01/30/2024 05/31/2024 DiscontinuedStart: 99-21-2994PYVNoyvyuzbs (ZOMIG) 5 mg nasal spray Use 1 Thompson in the nose as needed at onset of migraine headache. If symptoms persist or return, may repeat dose in other nostril after 2 hours. Maximum of 2 sprays per 24 hours 10 Each 2 06/24/2022 ActiveStart: 06-24-2022 take 1 spray(s) nasal route every twenty-four hours as neededZOLMitriptan (ZOMIG) 5 mg nasal spray Use 1 Thompson in the nose as needed. SPRAY IN 1 NOSTRIL AT ONSET OF MIGRAINE HEADACHE. If symptoms persist or return, may repeat dose after 2 hours. Maximum: 5 mg/dose; 10 mg per 24 hours 10 Each 2 06/24/2022 ActiveComment on above:Use 1 Thompson in the nose as needed. SPRAY IN 1 NOSTRIL AT ONSET OF MIGRAINE HEADACHE. If symptoms persist or return, may repeat dose after 2 hours. Maximum: 5 mg/dose; 10 mg per 24 hoursUse 1 Thompson in the nose as needed at onset of migraine headache. If symptoms persist or return, mayrepeat dose in other nostril after 2 hours. Maximum of 2 sprays per 24 hours Completed/Discontinued Medications MedicationDrug Class(es)DatesSig (Normalized)Sig (Original)acetaminophen 500 mg oral tablet (20 sources)Start: 04-08-2024 End: 37-02-6857ntbj 1 tablet by mouth every six hours as needed for pain1,000 mg, oral, Every 6 hours PRN, mild pain - pain scale 1-3, Starting on Mon04/08/24 at 1825Start: 84-28-1762bngk 2 tablets by mouth every six hours as needed for painacetaminophen (TYLENOL EXTRA STRENGTH) 500 mg tablet Take 2 tablets (1,000 mg total) by mouth every6 (six) hours as needed for pain. 30 tablet 2 03/28/2024 ActiveStart: 97-28-5925bzoo 1 tablet by mouth every six hours as needed Acetaminophen Extra Strength 500 MG tablet Take 500 mg by mouth every 6 (six) hours if needed (pain) 03/28/2024 ActiveStart: 15-89-7846tbsdfvxcjxiho (TYLENOL) tablet 1,000 mgStart: 10-19-2021 End: 02-80-5639wvrebdjrdhpbx (TYLENOL) tablet 650 mgacetaminophen 300 mg / codeine phosphate 30 mg oral tablet (3 sources)Opioid AgonistStart: 04-04-2024 End: 21-56-1911oakm 1 tablet by mouth every six hours as neededacetaminophen- codeine (TYLENOL #3) 300-30 mg per tablet Take 1 tablet by mouth every 6 (six) hours as needed. 04/04/2024 04/15/2024 Discontinued (Alternate therapy) ARIPiprazole 10 mg oral tablet (8 sources)Atypical Antipsychotic End: 88-00-8196suax 1 tablet by mouth in the morningARIPiprazole [...] mg oral tablet (2 sources)Muscle Relaxant End: 73-59-7563pzmg 1 tablet by mouth three times dailycyclobenzaprine [...] medication -verify indication for use.Start: 04-08-2024 End: 45-71-120104 mg, intravenous, Once, On Mon04/08/24 at 1450, For 1 dose, Look-alike/sound-alike medication - verify indication for use.Start: 01-22-2024 End: 24-31-517125 mg, INTRAVENOUS, NEEDED, 2 doses, Starting on Mon01/22/24 at 1328, Until Mon01/22/24 at 1429,Sedation/Dystonia/Akathisia/Anxiety 3rd line Start: 01-19-2024 End: 63-01-397492 mg, INTRAVENOUS, NEEDED, 2 doses, Starting on Mon01/19/24 at 0909, Until Mon01/19/24 at 1012, Sedation/Dystonia/Akathisia/Anxiety 3rd lineStart: 01-17-2024 End: 83-51-297958 mg, INTRAVENOUS, NEEDED, 2 doses, Starting on Mon01/17/24 at 0815, Until Mon01/17/24 at 0935, Sedation/Dystonia/Akathisia/Anxiety 3rd lineStart: 01-05-2024 End: 74-44-807249 mg, INTRAVENOUS, NEEDED, 1 dose, Starting on Mon01/05/24 at 1327, Until Mon01/05/24 at 1330, Administer per hypersensitivity/anaphylaxis grading in nursing communicationStart: 01-05-2024 End: 92-76-734164 mg, INTRAVENOUS, NEEDED, 2 doses, Starting on Mon01/05/24 at 1235, Until Mon01/05/24 at 1559, Sedation/Dystonia/Akathisia/Anxiety 3rd lineStart: 10-13-2023 End: 91-74-580877 mg, INTRAVENOUS, NEEDED, 1 dose, Starting on Mon10/13/23 at 1308, Until Mon10/13/23 at 1310, Administer per hypersensitivity/anaphylaxis grading in nursing communicationStart: 12-24-2020 End: 24-05-7423jbifqskbbbVISNS (BENADRYL) injection 50 mgdocusate sodium 50 mg / sennosides, senior care 8.6 mg oral tablet (11 sources)Start: 03-28-2024 End: 68-14-3960qtld 1 tablet by mouth at bedtimesennosides-docusate sodium (SENNA WITH DOCUSATE SODIUM) 8.6-50 mg Take 1 tablet by mouth in the morning and at bedtime. 30 tablet 1 03/28/2024 04/25/2024 Discontinued0.4 ml enoxaparin sodium 100 mg/ml prefilled syringe (1 source)Low Molecular Weight HeparinStart: 20-63-0569fzmchp 40 mg by subcutaneous injection once daily40 [...] 100 mL (VYEPTI) (4 sources)Start: 08-01-2024 End: 98-08-5805487 mg, INTRAVENOUS, at 200 mL/hr, Administer over 30 Minutes, ONCE, 1 dose, On Mon08/01/24 at 1100, EXP: Administer with 0.2 micron filter.Start: 05-02-2024 End: 40-40-0167414 mg, INTRAVENOUS, at 200 mL/hr, Administer over [...] 140 mg/ml auto-injector (20 sources)Start: 07-10-2023 End: 05-81-9355jppqfo 1 mL by subcutaneous injection every montherenumab-aooe (AIMOVIG AUTOINJECTOR) 140 mg/mL auto-injector Inject 1 mL subcutaneously once every month. Do not shake. 1 Each 07/10/2023 09/19/2023 DiscontinuedStart: 03-23-2023 End: 53-51-9329tqyrgg 1 mL by subcutaneous injection every montherenumab-aooe (AIMOVIG AUTOINJECTOR) 70 mg/mL auto-injector Inject 1 mL subcutaneously once every month. Do not shake. 1 Each 07/10/2023 07/10/2023 DiscontinuedComment on above:Inject 1 mL subcutaneously once every month. Do not shake.2 ml famotidine 10 mg/ml injection (1 source)Histamine-2 Receptor AntagonistStart: 08-01-2024 End: 51-11-796200 mg, INTRAVENOUS, NEEDED, 1 dose, Starting on Meg 08/01/24 at 1056, Until Meg 08/01/24 at 1146, Heartburn, REFRIGERATEfluconazole 150 mg oral tablet (6 sources)Azole AntifungalStart: 07-01-2024 End: 94-86-6457qecv 1 tablet by mouth once, then take 1 tablet by mouth once fluconazole (Diflucan) 150 MG tablet Indications: Yeast infection Take 1 tablet (150 mg) by mouth 1(one) time for 1 dose This is a 1 time dose, take single tablet by mouth. 1 tablet 1 07/01/2024 07/01/2024 ExpiredStart: 05-21-2024 End: 42-59-5066lnqx 1 tablet by mouth oncefluconazole (DIFLUCAN) 150 mg tablet Indications: Antibiotic-induced yeast infection Take 1 tablet (150 mg total) by mouth once for 1 dose. 1 tablet 05/21/2024 05/21/2024 ActiveStart: 04-02-2024 End: 92-01-4739fjpc 1 tablet by mouth once, then take 1 tablet by mouth once fluconazole (Diflucan) 150 MG tablet Indications: Yeast infection Take 1 tablet (150 mg) by mouth 1(one) time for 1 dose This is a 1 time dose, take single tablet by mouth. 1 tablet 1 04/02/2024 04/02/2024 ExpiredStart: 01-24-2024 End: 46-15-3959wfnp 1 tablet by mouth oncefluconazole (Diflucan) 150 MG tablet Indications: Rash , Yeast dermatitis Take 1 tablet (150 mg) bymouth every 3rd (third) day for 2 doses 2 tablet 01/24/2024 01/28/2024 ActiveFLUoxetine 20 mg oral capsule (2 sources)Serotonin Reuptake Inhibitor End: 72-16-5869yrfs 3 capsules by mouth once dailyFLUoxetine (PROZAC) 20 MG capsule Take 60 mg by mouth daily 0 10/20/2021 Discontinued (Stop Taking at Discharge)30 actuat fluticasone furoate 0.1 mg/actuat / umeclidinium 0.0625 mg/actuat / vilanterol 0.025 mg/actuat dry powder inhaler (5 sources)Anticholinergic, Corticosteroid, beta2-Adrenergic Agonist End: 66-46-4355acxrnbbkqwq-umeclidin-vilanter (TRELEGY ELLIPTA) 100-62.5-25 mcg blister with device daily. 03/20/2024 Discontinued1.5 ml fremanezumab-vfrm 150 mg/ml auto-injector (12 sources)Start: 11-25-2020 End: 70-92-4556wkeqrfgdutgr-vfrm 225 mg/1.5 mL auto-injector Indications: Chronic mixed headache syndrome Inject 225 mg under the skin every 28 days. 1.5 mL 4 11/25/2020 03/25/2024 Discontinued (Therapy completed)Comment on above: Ajovy 225 mg/1.5 mL subcutaneous auto-injectorgabapentin 600 mg oral tablet (6 sources)Anti-epileptic AgentStart: 75-45-9573ueyhznwfpc (NEURONTIN) 600 mg tablet End: 32-67-4251afiuichqqa (NEURONTIN) 600 MG tablet Take 300 mg by mouth 3 times daily. 0 10/20/2021 Discontinued (Stop Taking at Discharge)take 1 tablet by mouth once dailygabapentin (NEURONTIN) 600 MG tablet Take 600 mg by mouth nightly. 0 Activegadoteridol (PROHANCE) injection 20 mL (1 source)Start: 10-19-2021 End: 30-91-4596njueawwjytu (PROHANCE) injection 20 mL1 ml galcanezumab-gnlm 120 mg/ml auto-injector (20 sources)Start: 09-27-2022 End: 24-44-8352gwbtmd 1 mL by subcutaneous injection every monthgalcanezumab- gnlm (EMGALITY PEN) 120 mg/mL pen Inject 1 mL subcutaneously once every month. Do not shake. 1 Each 11 09/27/2022 11/10/2022 Discontinued (Course of therapy completed)Start: 09-27-2022 End: 39-57-0154peoqvb 2 doses by subcutaneous injection every monthgalcanezumab- gnlm 120 mg/mL subcutaneous pen injector (EMGALITY) Inject 2 Pens subcutaneously one time only for 1 dose. For first month only. Refrigerate. Do not shake. 2 Each 0 09/27/2022 3Discontinued (Course of therapy completed)Start: 59-14-8615qirsyx 1 mL by subcutaneous injection every monthgalcanezumab-gnlm (EMGALITY PEN) 120 mg/mL pen Inject 1 mL subcutaneously once every month. Do not shake. 1 Each 2 06/24/2022 ActiveStart: 49-30-1310shdtbt 2 doses by subcutaneous injection every monthgalcanezumab-gnlm [...] prefilled syringe (4 sources)Opioid AgonistStart: 04-08-2024 End: 53-34-1665cfwc 1 mg intravenously every four hours as needed for pain1 mg, intravenous, Every 4 hours PRN, severe pain - pain scale 7-10, Starting on Mon04/08/24 at 1941, If IV push, administer over over 2 to 3 minutes. Look-alike/sound-alike medication - verify indication for use.Start: 04-08-2024 End: 67-55-4186vlux 0.5 mg intravenously once0.5 mg, intravenous, Once, [...] iodine/mL 100 mL (1 source)Start: 04-08-2024 End: 43-57-3696416 mL, intravenous, Once in imaging, contrast, Starting on Mon04/08/24 at 1521, For 1 dose, VESICANT (RED)iohexoL (OMNIPAQUE) 300 mg iodine/mL 30 mL (1 source)Start: 04-08-2024 End: 30-20-9356wpqw 30 mL by mouth once30 mL, oral, [...] of therapy for ketorolac (Toradol).Start: 08-01-2024 End: 75-64-165513 mg, INTRAVENOUS, ONCE, 1 dose, On Meg 08/01/24 at 1130, Ketorolac (Toradol) is indicated for the short-term (up to 5 days) management of moderately severe acute pain. Continuation of ketorolac (Toradol) beyond 5 days increases the risk of developing serious adverse events. Please verify the duration of therapy for ketorolac (Toradol)Start: 90-38-9102hfno 1 tablet by mouth every eight hours as needed for painketorolac (Toradol) 10 MG tablet Take 10 mg by mouth every 8 (eight) hours if needed for mild pain 06/22/2024 Active Start: 55-43-6598kmpl 1 tablet by mouth every six hours as neededkeTORolac (TORADOL) 10 mg tablet Take 1 tablet by mouth every 6 hours as needed (severe migraine). 20 tablet 5 06/04/2024 ActiveStart: 05-02-2024 End: 36-97-539559 mg, INTRAVENOUS, ONCE, 1 dose, On Mon05/02/24 at 1200, Ketorolac (Toradol) is indicated for the short-term (up to 5 days) management of moderately severe acute pain. Continuation of ketorolac (Toradol) beyond 5 days increases the risk of developing serious adverse events. Please verify the duration of therapy for ketorolac (Toradol).Start: 05-02-2024 End: 84-90-4399wjRCAmxqw 30 mg injection (Toradol)Start: 04-09-2024 End: 62-51-042370 mg, intramuscular, Once, On Mon04/09/24 at 1100, For 1 dose, Look-alike/sound-alike medication -verify indication for use. Duration of therapy is not to exceed 5 days. Maximum recommended dose + 120mg/24 hours. Start: 01-22-2024 End: 25-37-969904 mg, INTRAVENOUS, ONCE, 1 dose, On 01/22/24 at 1330, Ketorolac (Toradol) is indicated for the short-term (up to 5 days) management of moderately severe acute pain. Continuation of ketorolac (Toradol) beyond 5 days increases the risk of developing serious adverse events. Please verify the duration of therapy for ketorolac (Toradol).Start: 01-19-2024 End: 48-85-464055 mg, INTRAVENOUS, ONCE, 1 dose, On Mon01/19/24 at 0930, Ketorolac (Toradol) is indicated for theshort-term (up to 5 days) management of moderately severe acute pain. Continuation of ketorolac (Toradol) beyond 5 days increases the risk of developing serious adverse events. Please verify the durat ion of therapy for ketorolac (Toradol).Start: 01-17-2024 End: 61-78-952868 mg, INTRAVENOUS, ONCE, 1 dose, On Mon01/17/24 at 0830, Ketorolac (Toradol) is indicated for theshort-term (up to 5 days) management of moderately severe acute pain. Continuation of ketorolac (Toradol) beyond 5 days increases the risk of developing serious adverse events. Please verify the durat ion of therapy for ketorolac (Toradol).Start: 01-05-2024 End: 68-27-449085 mg, INTRAVENOUS, ONCE, 1 dose, On Mon01/05/24 at 1330, Ketorolac (Toradol) is indicated for theshort-term (up to 5 days) management of moderately severe acute pain. Continuation of ketorolac (Toradol) beyond 5 days increases the risk of developing serious adverse events. Please verify the durat ion of therapy for ketorolac (Toradol)Start: 01-05-2024 End: 79-41-2925zhHQWrkxk 30 mg injection (Toradol)Start: 10-13-2023 End: 45-36-470529 mg, INTRAVENOUS, ONCE, 1 dose, On Mon10/13/23 [...] the opioid, if preferred: YesStart: 10-13-2023 End: 89-61-1943brWLCqesf 30 mg injection (Toradol)Start: 05-14-2023 End: 83-94-9832lmbm 1 tablet by mouth every eight hours as neededketorolac (Toradol) 10 MG tablet Take 1 tablet by mouth every 8 (eight) hours if needed 05/14/2023 02/28/2024 DiscontinuedStart: 05-08-2022 End: 84-98-4879agoq 1 tablet by mouth every six hours as neededkeTORolac (TORADOL) 10 mg tablet Take 1 tablet by mouth every 6 hours as needed (severe migraine). 20 tablet 5 11/10/2023 05/31/2024 DiscontinuedStart: 12-24-2020 End: 01-22-7454kxbgamizx (TORADOL) injection 15 mgComment on above:Take 1 tablet by mouth every 6 hours as needed (severe migraine).Take 10 mg by mouth. lamoTRIgine 200 mg oral tablet (20 sources)Mood Stabilizer, Anti-epileptic AgentStart: 01-29-2024 End: 72-47-7387tpnc 1 tablet by mouth in the morning, then take 1 tablet by mouth at bedtimelamoTRIgine (LaMICtal) 200 mg tablet Take 1 tablet (200 mg total) by mouth in the morning and 1 tablet (200 mg total) before bedtime. 01/29/2024 10/24/2024 Discontinued (Therapy completed)Start: 05-18-2023 End: 01-60-8642crfw 1 tablet by mouth at bedtimelamoTRIgine (LaMICtal) 200 MG tablet Take 1 tablet by mouth at bedtime 05/18/2023 01/09/2024 Discontinued Start: 02-23-2022 End: 04-55-1949hjqiXLNuets (LaMICtal) 150 mg tablet 100mg in am 150mg at HS 02/23/2022 03/25/2024 Discontinued (Dose adjustment)Start: 11-23-2021 End: 15-96-4357efmeQCDbhbn (LAMICTAL) 150 mg tablet 11/23/2021 ActiveStart: 60-82-4182arrb 2 tablets by mouth once dailylamoTRIgine (LAMICTAL) 25 MG tablet Take 2 tablets by mouth daily 30 tablet 3 10/21/2021 ActiveStart: 10-19-2021 lamoTRIgine (LAMICTAL) tablet 50 mg End: 29-39-8775sklhATYmnna (LaMICtal) 50 MG tablet,disintegrating disintegrating tablet Dissolve 2 tablets (100 mgtotal) on tongue in the morning. 03/25/2024 Discontinued (Dose adjustment)levETIRAcetam 250 mg oral tablet (3 sources)Start: 88-52-0614rblVKNUBbzzqf (KEPPRA) 250 mg tablet Take 1 at bedtime. Can increase to bid after 2 weeks if tablet 2 08/08/2022 ActiveComment on above:Take 1 at bedtime. Can increase to bid after 2 weeks if neededlithium carbonate 300 mg oral tablet (20 sources)Start: 04-08-2024 End: 02-62-0638688 mg, oral, Nightly, First dose on Mon04/08/24 at 2200, Food- Drug Interaction Education Required Look-alike/sound-alike medication - verify indication for use Maintain normal daily intakes of fluids and salt (sodium) Enteral Feeding: Mix solution with 10-30 mL water prior to administering in f eeding tubeStart: 06-13-2022 End: 33-68-0691hhalmih carbonate 300 mg tablet 06/13/2022 ActiveStart: 60-74-6752ayui 2 tablets by mouth once dailylithium carbonate 300 mg tablet Take 2 tablets (600 mg total) by mouth nightly. 01/17/2022 ActiveStart: 01-17-2022 End: 52-57-3134fudldxf carbonate 300 mg tablet 2 tablets (600 mg total). 01/17/2022 Active End: 94-09-5544pvxzkcu ER (Eskalith) 450 MG 12 hr tablet Rosa Sanchez 01/09/2024 Discontinued1 ml LORazepam 2 mg/ml injection (3 sources)BenzodiazepineStart: 04-08-2024 End: 66-39-4205vwyb 1 mg intravenously once1 mg, intravenous, Once, On Mon04/08/24 at 2015, For 1 dose, Look-alike/sound-alike medication - verify indication for use;IV use requires increased monitoring of HR,BP,Respirations and Pulse Oximetry;For IV-dilute with equal volume PF sod chloride, Indication: Sedation End: 08-61-3835smtz 1 tablet by mouth twice dailyLORazepam (ATIVAN) 2 MG tablet Take 2 mg by mouth 2 times daily. 0 10/20/2021 Discontinued (Stop Taking at Discharge)lumateperone (CAPLYTA) 10.5 mg capsule (20 sources) End: 96-17-4919tmus 1 capsule by mouth once dailylumateperone (CAPLYTA) [...] mg oral tablet (8 sources)AntiemeticStart: 06-22-2022 End: 36-24-9318khnu 1 tablet by mouth three times daily [...] 80 mg/ml injection (4 sources)CorticosteroidStart: 02-09-2024 End: 14-40-7695yuhoegRWCERELrrhdy acetate (DEPO-Medrol) injection 80 mgStart: 02-09-2024 End: 54-53-8425ysyuxmCBADLTBbcegl acetate (DEPO-Medrol) injection 80 mgStart: 02-09-2024 End: 03-80-870527 mg, Injection, Once, On Mon02/09/24 at 1130, For 1 doseStart: 02-09-2024 End: 59-89-166737 mg, Injection, Once, On Mon02/09/24 at 1130, For 1 dose2 ml midazolam 1 mg/ml injection (1 source)BenzodiazepineStart: 10-19-2021 End: 08-28-4058reffwkrnz PF (VERSED) injection 1 mgmontelukast 10 mg oral tablet (19 sources)Leukotriene Receptor AntagonistStart: 06-07-2022 End: 25-06-7671mvnp 1 tablet by mouth in the morningmontelukast [...] spray,non-aerosol nasal spray (6 sources)Start: 04-10-2024 End: 03-68-6465ksbvutps (NARCAN) 4 mg/actuation spray,non-aerosol nasal spray Administer 1 spray (4 mg total) intoalternating nostrils as needed for opioid reversal. 1 each 04/10/2024 04/25/2024 DiscontinuedStart: 93-89-8215pmphsceu (NARCAN) 4 mg/actuation spray,non-aerosol nasal spray Administer 1 spray (4 mg total) intoalternating nostrils as needed for opioid reversal. 1 each 04/10/2024 ActiveStart: 39-89-4962lwligajs (NARCAN) 4 mg/actuation spray,non-aerosol nasal spray Administer 1 spray (4 mg total) intoalternating nostrils as needed for opioid reversal. 1 each 04/10/2024naratriptan 2.5 mg oral tablet (4 sources)Serotonin-1b and Serotonin-1d Receptor AgonistStart: 66-59-1309tkvc 1 tablet by mouth every four hours [...] topical powder (15 sources)Polyene AntifungalStart: 01-24-2024 End: 46-25-0162hxdvbtzv (MYCOSTATIN) powder APPLY TO THE AFFECTED AREA(S) topically TWICE DAILY 01/24/2024 04/08/2024 Discontinued (Therapy completed) Start: 01-24-2024 End: 18-83-4393djlfphql (Mycostatin) 609210 UNIT/GM powder Indications: Rash , Yeast dermatitis Apply topically 2 (two) times a day 60 g 01/24/2024 02/28/2024 Discontinued2 ml ondansetron 2 mg/ml injection (20 sources)Serotonin-3 Receptor AntagonistStart: 08-01-2024 End: mg, INTRAVENOUS, EVERY 1 HOUR NEEDED, 2 doses, Starting on Mon08/02/24 at 1017, Until Mon08/02/24 at 1453, Nausea/Vomiting - First Line - ParenteralStart: 05-04-2024 End: 71-01-9273lrae 1 tablet by mouth every six hours [...] dose, Administer over 2-5 minutes.Start: 02-10-2024 End: 82-80-0225aeer 1 tablet by mouth every eight hours [...] - First Line - ParenteralStart: 12-24-2020 End: 22-84-1223sjjjyhiepup (ZOFRAN) injection 4 mgphentermine hydrochloride 37.5 mg oral capsule (20 sources)Sympathomimetic Amine AnorecticStart: 06-06-2024 End: 59-01-5512lncy 1 capsule by mouth once daily in the morningphentermine 37.5 MG capsule Indications: Weight loss Take 1 capsule (37.5 mg total) by mouth every morning. 30 capsule 06/06/2024 10/24/2024 Discontinued (Therapy completed) Start: 03-21-2023 End: 32-80-1269qjec 1 tablet by mouth once daily before [...] dissolve drug prior to administrationpolyethylene glycol 3350 05483 mg powder for oral solution (1 source)Osmotic LaxativeStart: g, Oral, DAILY PRN, Starting on Mon10/19/21 at 1226, Until Discontinued, Constipation First linetherapy for constipationprochlorperazine 5 mg/ml injectable solution (3 sources)PhenothiazineStart: 01-22-2024 End: 20-25-637031 mg, INTRAVENOUS, NEEDED, 1 dose, Starting on Mon01/22/24 at 1328, Until Mon01/22/24 at 1407, for headache; previously tolerated if given with Benadryl, Protect From LightStart: 01-19-2024 End: 70-73-012046 mg, INTRAVENOUS, NEEDED, 1 dose, Starting on Mon01/19/24 at 0909, Until Mon01/19/24 at 0951, for headache; previously tolerated if given with Benadryl, Protect From LightStart: 01-17-2024 End: 39-37-110849 mg, INTRAVENOUS, NEEDED, 1 dose, Starting on Mon01/17/24 at 0815, Until Mon01/17/24 at 0923, for headache; previously tolerated if given with Benadryl, Protect From Lightrimegepant 75 mg disintegrating oral tablet (8 sources)Start: 10-29-2020 End: 59-30-8681pawqgftwub 75 mg tablet,disintegrating Indications: Chronic mixed headache syndrome Dissolve 1 tablet on tongue daily as needed (migraines). 8 tablet 1 10/29/2020 03/25/2024 Discontinued (Therapy completed)20 ml ropivacaine hydrochloride 5 mg/ml injection (2 sources)Amide Local AnestheticStart: 08-18-2023 End: 73-68-1502BQVawwamwbx (PF) 5 mg/mL (0.5 %) 100 mg [...] hypersensitivity/anaphylaxis grading in nursing communication.Start: 04-08-2024 End: 42-00-223793 mL, intravenous, As needed, line care, Starting on Mon04/08/24 at 1521Start: 04-08-2024 End: 54-00-254511 mL, intravenous, Once in imaging, pre/post contrast, Starting on Mon04/08/24 at 1521, For 1 doseStart: 04-08-2024 End: ,000 mL, intravenous, at 3,871 mL/hr, Administer over 31 Minutes, Once, On Mon04/08/24 at 1335, For 1 doseStart: 01-19-2024 End: 72-06-0838432 mL, INTRAVENOUS, at 999 mL/hr, Administer over 0.5 Hours, ONCE, 1 dose, On Mon01/19/24 at 0930Start: 01-17-2024 End: 71-61-4592175 mL, INTRAVENOUS, at 999 mL/hr, Administer over 0.5 Hours, ONCE, 1 dose, On Mon01/17/24 at 0830Start: 64-72-1135xerw 1 dose intravenously twice daily5-40 mL, IntraVENous, [...] Midline or Central Line = 20 mL/lumenStart: 06-80-7403jidavc chloride flush 0.9 % injection 10 mLStart: 10-19-2021 End: 54-32-8125QuriwNESpzx, at 125 mL/hr, CONTINUOUS, Starting on Mon10/19/21 at 1245Start: 71-88-9198YrsikMTBwkd, at 5-250 mL/hr, PRN, if patient receiving [...] or less into rate field of order.Start: 80-33-9767nmdo 5-40 mL intravenously once as needed5-40 mL, [...] Reductase Inhibitor Antibacterial, Sulfonamide AntimicrobialStart: 04-07-2024 End: 01-60-9712fqne 1 tablet by mouth once in the morningsulfamethoxazole- trimethoprim (BACTRIM DS) 800-160 mg per tablet Take 1 tablet by mouth in the morning and 1 tablet before bedtime. 04/07/2024 04/10/2024 Discontinued (Stop Taking at Discharge)Start: 11-15-2023 End: 03-60-5633hcwk 1 tablet by mouth once in the morning, then take 1 tablet by mouth once at bedtimesulfamethoxazole-trimethoprim (Bactrim DS) 800-160 MG per tablet Indications: Acute bronchitis due to other specified organisms Take 1 tablet by mouth in the morning and 1 tablet before bedtime. Do all this for 14 days. 28 tablet 11/15/2023 11/29/2023 ActiveStart: 10-10-2023 End: 69-81-1781qwhg 1 tablet by mouth once in the [...] (3 sources)Serotonin-1b and Serotonin-1d Receptor Agonist End: 39-42-8910ZQSBncmyznw (IMITREX) 100 mg tablet Take 100 mg by mouth. 0 12/03/2021 Discontinued (Lack of Efficacy)Comment on above:Take 100 mg by mouth. traZODone hydrochloride 100 mg oral tablet (20 sources)Serotonin Reuptake InhibitorStart: 04-09-2024 End: 39-51-5388mrxa 300 mg by mouth once mg, oral, Nightly, First dose on Mon04/09/24 at 0100, Look-alike/sound-alike medication - verify indication for use.Start: 23-66-7861jfzb 1 tablet by mouth once dailytraZODone (DESYREL) 300 MG tablet Take 1 tablet (300 mg total) by mouth nightly. 03/14/2024 Active Start: 05-10-2023 End: 63-18-6307hvjy 1 tablet by mouth at bedtimetraZODone (Desyrel) 300 MG tablet Take 300 mg by mouth at bedtime 05/10/2023 02/28/2024 DiscontinuedStart: 06-13-2022 End: 88-10-6952zhxKNRihc (DESYREL) 100 mg tablet 06/13/2022 05/03/2024 Discontinued End: 21-65-0580wbqo 2 tablets by mouth once dailytraZODone (DESYREL) 100 mg tablet Take 2 tablets (200 mg total) by mouth nightly. 03/25/2024 Discontinued (Therapy completed) End: 02-06-0418ybvHIBnnh (Desyrel) 50 MG tablet Take by mouth at bedtime. 01/09/2024 Discontinuedvancomycin (VANCOCIN) IVPB 1250 mg/250 mL in 0.9% sodium chloride (premix) (1 source)Start: 04-09-2024 End: 59-52-3760hknk 1250 mg intravenously every eight hours1,250 mg, [...] (YELLOW), Indication: Uncomplicated skin and soft tissue hsngnetom92 hr venlafaxine 75 mg extended release oral [...] mg oral tablet (20 sources)Start: 04-20-2022 End: 48-03-7342lciejtkera (VIIBRYD) 20 mg tablet 2 tablets (40 mg total). 04/20/2022 03/25/2024 Discontinued (Therapy completed)Start: 04-20-2022 End: 65-91-7846uuaegunkav (VIIBRYD) 20 mg tabletvitamin b12 1 mg oral tablet (8 sources)Vitamin B12 End: 96-47-8456rqtb 1 tablet by mouth in the morningcyanocobalamin 1000 MCG tablet Take 1 tablet (1,000 mcg total) by mouth in the morning. 03/25/2024 D iscontinued (Therapy completed) Problems Active Problems Problem ClassificationProblemDateDocumented DateEpisodic/ChronicAllergic reactions (3 sources)Environmental allergy; Translations: [Other allergy status, other than to drugs and biological substances]Onset: 084691-94-9337Hlzntxef Anxiety disorders (20 sources)Anxiety disorder, unspecified; Translations: [Generalized anxiety disorder]Onset: 195003-44-3802SxtperwUlnszu (20 sources)Unspecified asthma, uncomplicated; Translations: [Mild persistent asthma]Onset: 12-29-2021 Resolved: 994525-77-0809CmxahvyQporilumufwxt of surgical procedures or medical care (2 sources)Menopausal flushing; Translations: [Symptomatic postprocedural ovarian failure]73-71-0789ZheprabM Codes: Fall (1 source)Unspecified fall, initial encounter; Translations: [UNSPECIFIED FALL INITIAL ENCOUNTER]Onset: 00-98-9876IvxixjrwMpknwegjpgvmk (1 source)Endometriosis, unspecified; Translations: [ENDOMETRIOSIS UNSPECIFIED] Onset: 26-13-1485EnizogiPksybgnvgy disorders (6 sources)Gastro-esophageal reflux disease without esophagitis; Translations: [Gastroesophageal reflux disease]Onset: 451805-36-1714RiacmxoDykvzoedegdke symptoms and ill-defined conditions (1 source)Stress incontinence (female) (male); Translations: [STRESS INCONTINENCE FEMALE MALE]Onset: 62-40-0825EjwtcfoYvxtaqumrgxjw symptoms and ill- defined conditions (1 source)Painful micturition, unspecified; Translations: [PAINFUL MICTURITION UNSPECIFIED]Onset: 89-29-1728JctaityrVlqsyigv; including migraine (20 sources)Migraine; Translations: [Migraine, unspecified, not intractable, without status migrainosus]Onset: 07-30-1388NyqikqaCdaestgx; including migraine (1 source)Headache; Translations: [Chronic intractable headache, unspecified headache type]EpisodicHeadache; including migraine (4 sources)Headache; including migraine; Translations: [HEADACHE UNSPECIFIED] Onset: 09-69-1694Xezxu valve disorders (1 source)Nonrheumatic mitral (valve) prolapse; Translations: [NONRHEUMATIC MITRAL VALVE PROLAPSE]Onset: 76-65-4628UrlutrqBqgpgqtwxatj; infection of eye (except that caused by tuberculosis or sexually transmitteddisease) (12 sources)Infection of bilateral eyes; 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, bilateral]Onset: 907771-08-9139DuvetqmYzajekjkwdex diseases of female pelvic organs (4 sources)Female pelvic peritoneal adhesions; Translations: [Female pelvic peritoneal adhesions (postinfective)]09-20-3310LvkweufbGhupjakljg disorders (3 sources)Menopausal symptom; Translations: [Menopausal and female climacteric states]40-50-4816EobtixsKetkthtep disorders (1 source)Dysmenorrhea, unspecified; Translations: [DYSMENORRHEA UNSPECIFIED] Onset: 79-48-1293IvrcnvhVladsubvlicpk mental health disorders (20 sources)Dissociative convulsions; Translations: [Conversion disorder with seizures or convulsions]Onset: 12-32-5180LjfywlsJghj disorders (20 sources)Bipolar disorder, unspecified; Translations: [Major depressive disorder, single episode, unspecified]Onset: 367365-56-3122IifzbfoAtzcfuw (5 sources)Mycosis; Translations: [Candidiasis, unspecified]29-74-9075Nesmvmls Other aftercare (1 source)Other termite treater (current) drug therapy; Translations: [OTH SCALP TREATMENT SPECIALIST CURRENT DRUG THERAPY]Onset: 19-07-8281LzrcvwwiVihva aftercare (2 sources)Wound finding; Translations: [Encounter for other specified aftercare]53-06-1886DyuphdazRwfxz connective tissue disease (2 sources)Spasm; Translations: [Other muscle spasm]15-71-3413WhkxzhulXxvea endocrine disorders (1 source)Polycystic ovarian syndrome; Translations: [POLYCYSTIC OVARIAN SYNDROME]Onset: 86-07-9056ZnolukwOulym endocrine disorders (20 sources)Polycystic ovary; Translations: [Polycystic ovarian syndrome]Onset: 693715-99-1372DanpilyWemzc eye disorders (1 source)Bilateral epiphora of eyes; Translations: [Unspecified epiphora, bilateral]31-03-4196OjezfautWnclo female genital disorders (1 source)Unspecified dyspareunia; Translations: [UNSPECIFIED DYSPAREUNIA]Onset: 47-44-4367DshuqriGxdhk female genital disorders (1 source)Abnormal uterine and vaginal bleeding, unspecified; Translations: [ABNORMAL UTERINE VAGINAL BLEED UNS]Onset: 58-09-1650DkjtvkeKgiwr female genital disorders (2 sources)Pain in female genitalia on intercourse; Translations: [Unspecified dyspareunia]95-53-4404NmhbqesTvdtg gastrointestinal disorders (1 source)Other constipation; Translations: [OTHER CONSTIPATION]Onset: 98-82-5207HuumjmqaVqcro injuries and conditions due to external causes (4 sources)Unspecified injury of head, initial encounter; Translations: [UNSPECIFIED INJURY HEAD INITIAL ENC]Onset: 22-45-2552GkcpbkssZyjms injuries and conditions due to external causes (1 source)Allergic reaction; Translations: [Allergy, unspecified, sequela] 27-12-7024WdnovnzlRkusi liver diseases (1 source)Fatty (change of) liver, not elsewhere classified; Translations: [FATTY CHANGE LIVER NEC]Onset: 57-40-2410GsmpxypIyqtb lower respiratory disease (1 source)Nodule of lung; Translations: [Solitary pulmonary nodule]03-20-2024 EpisodicOther nervous system disorders (1 source)Tremor; Translations: [Tremor, unspecified]EpisodicOther nervous system disorders (3 sources)Postoperative pain ; Translations: [Other acute postprocedural pain] 21-88-8204GvoypwnbYzurh nutritional; endocrine; and metabolic disorders (1 source)Morbid (severe) obesity due to excess calories; Translations: [MORBID SEVERE OBES D/T EXCESS DAJUAN]Onset: 43-36-5750QbfwcfsIlkdy nutritional; endocrine; and metabolic disorders (1 source)Body mass index (BMI) 45.0-49.9, adult; Translations: [BODY MASS INDEX BMI 45.0-49.9 ADULT]Onset: 64-67-6480AvpbijdRbmmu nutritional; endocrine; and metabolic disorders (8 sources)Morbid obesity; Translations: [Morbid (severe) obesity due to excess calories]Onset: 334979-78-0506EyrosszNdckr nutritional; endocrine; and metabolic disorders (20 sources)Severe obesity; Translations: [Class 3 severe obesity due to excess calories without serious comorbidity with body mass index (BMI) of 50.0 to 59.9 in adult]Onset: 058955-04-3547MmoesecUswrt nutritional; endocrine; and metabolic disorders (2 sources)Weight decreased; Translations: [Abnormal weight loss]06-06-2024 EpisodicOther skin disorders (2 sources)Excessive sweating; Translations: [Generalized hyperhidrosis] 23-13-3911WhtlhnlySihcd upper respiratory disease (3 sources)Seasonal allergic rhinitis; Translations: [Other seasonal allergic rhinitis]44-66-0491HdnqvqyQiany upper respiratory infections (1 source)Acute pansinusitis; Translations: [Acute pansinusitis, unspecified] 05-61-3351FimkdxywEobhck media and related conditions (1 source)Otitis media of left ear; Translations: [Otitis media, unspecified, left ear]03-75-2071TewlkkeoHovtlzj cyst (11 sources)Complex ovarian cyst; Translations: [Other ovarian cyst, unspecified side]53-83-8583NtyhoeiaFsatyldk codes; unclassified (4 sources)Obstructive sleep apnea syndrome; Translations: [Obstructive sleep apnea (adult) (pediatric)]74-37-7397QzfgarjVweqtyzu codes; unclassified (1 source)Acquired absence of other specified parts of digestive tract; Translations: [ACQ ABSENCE OTH PART DIGESTV TRACT]Onset: 91-37-7191Kktjnjxe Residual codes; unclassified (1 source)Preoperative qcpaw96-93-4036CvmoojrcJjcjnvty codes; unclassified (2 sources)Family history of hereditary disease; Translations: [Family history of other specified conditions]90-31-8041SduepiaoCybdmmjd codes; unclassified (2 sources)Reduced libido; Translations: [Decreased libido]35-26-2776Gvisybvb Residual codes; unclassified (1 source)Family history of other specified conditions; Translations: [Family history of other specified conditions]Onset: 83-93-7567XnxpdgyxOnfqxxtrzlvu (3 sources)LOW BACK PAIN, UNSPECIFIED; Translations: [LOW BACK PAIN, UNSPECIFIED]Onset: 10-88-7114Zsbtcczujepe (1 source)CONTACT W/AND (SUSP) EXPOS COVID-19; Translations: [CONTACT W/AND (SUSP) EXPOS COVID-19]Onset: 98-72-7952Rswfj infection (1 source)Disease caused by 2019-nCoV; Translations: [COVID-19]01-24-2024 Episodic Past or Other Problems Problem ClassificationProblemDateDocumented DateEpisodic/ChronicAbdominal pain (20 sources)Unspecified abdominal pain; Translations: [Pelvic and perineal pain] Onset: 08-17-2021 Resolved: 63-14-8092MxsmonxsKlbxt bronchitis (20 sources)Acute infective bronchitis; Translations: [Acute bronchitis due to other specified organisms]Onset: 10-10-2023 Resolved: 397804-28-0698NrgyrpruZxer; stupor; and brain damage (20 sources)Somnolence; Translations: [Loss of consciousness]Onset: 08-06-2021 Resolved: 225858-76-6967IxplrzjfAhzlibmptatgn of surgical procedures or medical care (20 sources)Postoperative complication; Translations: [Other postprocedural complications and disorders of genitourinary system]Onset: EpisodicContraceptive and procreative management (1 source)Tubal ligation status; Translations: [TUBAL LIGATION STATUS]Onset: 23-81-2492TwcmzgjqEynqwgtyf of teeth and jaw (20 sources)Toothache; Translations: [Other specified disorders of teeth and supporting structures]Onset: 188687-20-8925XtdhxgtjEnzwsvpj; convulsions (20 sources)Seizure disorder; Translations: [Epilepsy, unspecified, not intractable, without status epilepticus]Onset: 02-18-2020 Resolved: 99-81-6279HqntoslWedpfiqu; convulsions (20 sources)Neurological finding; Translations: [Unspecified convulsions]Onset: 10-19-2021 Resolved: 43-80-8324JpaxnbinXfwnmvd and fatigue (20 sources)Fatigue; Translations: [Other fatigue]Onset: EpisodicMood disorders (20 sources)Mood disorders; Translations: [DEPRESSION UNSPECIFIED]Onset: 03-03-2022 Resolved: Nausea and vomiting (20 sources)Nausea; Translations: [Nausea with vomiting, unspecified]Onset: 50-88-8403ZqdajhleIznsa aftercare (20 sources)Long-term current use of drug therapy; Translations: [Other termite treater (current) drug therapy]Onset: 739778-21-7982WhrgtlesGlnwz female genital disorders (1 source)Pain in female pelvis; Translations: [Pelvic pain in female]Onset: 935058-90-8866EroctecjHhfzg gastrointestinal disorders (1 source)Diarrhea, unspecified; Translations: [DIARRHEA UNSPECIFIED]Onset: 67-72-6612MmbfbcxsNybsl liver diseases (1 source)Hepatomegaly, not elsewhere classified; Translations: [HEPATOMEGALY NEC]Onset: 62-15-6067HqpywogrItaxa lower respiratory disease (20 sources)Dyspnea on exertion; Translations: [Shortness of breath]Onset: 259883-54-8669HievjayzZbvoy lower respiratory disease (20 sources)Cough; Translations: [Acute cough]Onset: 01-27-2022 Resolved: 696446-49-2841XecqhrvkLylnc nervous system disorders (5 sources)Other acute postprocedural pain; Translations: [OTHER ACUTE POSTPROCEDURAL PAIN]Onset: 55-00-9569AopcqauuIahtd screening for suspected conditions (not mental disorders or infectious disease) (20 sources)Suspected disorder; Translations: [Encounter for suspected anomaly ruled out]Onset: 592366-60-1980AontfuytVrmht skin disorders (13 sources)Ingrowing great toenail; Translations: [Ingrowing nail]Onset: 624193-34-8594FqgkiwjnJfmwmywo codes; unclassified (1 source)Acquired absence of both cervix and uterus; Translations: [ACQUIRED ABSENCE BOTH CERVIX AND UTERUS]Onset: 46-15-1793AscexmszGksrbgmt codes; unclassified (1 source)Other specified postprocedural states; Translations: [OTH SPECIFIED POSTPROCEDURAL STATES]Onset: 90-10-2721QvwzsiepVtmvkojg codes; unclassified (20 sources)Persistent insomnia; Translations: [Insomnia, unspecified]Onset: 518471-40-3524EhbaooomPanhirii codes; unclassified (20 sources)Edema, generalized; Translations: [Generalized edema]Onset: 580593-29-2034SaodphzvQrobpknj codes; unclassified (20 sources)History of bilateral salpingo-oophorectomy; 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, bilateral]Onset: 724046-00-2257OfcrkauoGxjj and subcutaneous tissue infections (20 sources)Cellulitis of abdominal wall ; Translations: [Cellulitis of abdominal wall]Onset: 155811-29-5441EsbfsxniZrebvundjpk; intervertebral disc disorders; other back problems (20 sources)Cervicalgia; Translations: [Neck pain]Onset: 818335-40-0105 EpisodicUnclassified (1 source)LOW BACK PAIN, UNSPECIFIED; Translations: [LOW BACK PAIN, UNSPECIFIED] Onset: 34-72-5393Ghkuwyerhowz (1 source)Patient encounter rbnfic17-16-7113Czcipcwehims (1 source)Onset: 904513-44-5214Cslcgsw tract infections (1 source)Urinary tract infection, site not specified; Translations: [UTI SITE NOT SPECIFIED]Onset: 97-60-1343Tjnaqnsl Results Test NameValueInterpretationReference RangeFacilityCNOVon 05-21-7123XFNEMslecc Visit (NHMNS2) APRIL NICHOLSON ([id number]) 1995 F Date Time Provider Department 10/24/25 [...] Lymph 1.00 - 4.00 k/uL 0.84 Abs Towns <0.87 k/uL 0.06 Abs Eosin <0.46 k/uL [...] ZOLMitriptan (ZOMIG) 5 mg nasal sprayUse 1 Thompson in the nose as needed at onset of migraine headache. If symptoms persist or return, may repeat dose in other nostril after 2 hours. Maximum of 2 sprays per 24 hoursDisp: 12 eachRfl: 5 albuterol sulfate 90 mcg/actuation breath activated powder inhalerInhale 2 Puffs as instructed every 6 hours as needed for (more content not included)... [facility] 15-51-8433EXKFEehvbb Visit (NHMNS2) APRIL NICHOLSON ([id number]) 1995 F Date Time Provider Department 12/12/24 9:00 AM [facility]IL [facility]NEL[facility] During your visit today, we recorded the following information about you: Pulse Blood pressure Weight 102/minute 127/79 128 kg Basil Cornelius DO 12/12/2024 9:58 AM Signed [facility] [place] [address] [place] [address] Headache Center - Follow up Visit Accompanied [...] this. Current treatment: Preventative: Vyepti 300 mg c6yqdijo Abortive: Zavzpret 10 mg IN prn Zomig IN prn Phenergan Last office visit 09/24/2024: Headache 1 Lo (more content not included)...NormalSt. [facility] CampusCNPNon 09-13-8592SGFWUgnspjujm (MNOPRX) APRIL NICHOLSON ([id number]) 1995 F Date Time Provider Department 08/05/24 RHIANNON BOBO MNOPRX During your visit today, we recorded the following information about you: Rhiannon Bobo 08/06/2024 9:58 AM Signed Ambulatory Pharmacy Prior Authorization Note Provider Intervention Required?: No - Pharmacy completed on your behalf. Was the PA documented within the ePA workqueue?: No Rx Plan: Medicaid MCO ([facility]) Drug: Zavzpret 10MG/ACT solution Cover My Meds Chong: [id number] Determination: Approved Prior Authorization/Case #: [id number] Prior Authorization Expiration: 01/31/2025 Time to PA [...] questions relating to this submission, please contact [facility] at [phone] Allergies As of Date: 08/05/2024 Noted Allergy [...] Hives PROCHLORPERAZINE 12/29/2023 5 - Intolerance VYEPTI ([facility]) 05/02/2024 2 - Rash 9 - Itching Comments: Patient described extreme itching located on her chest and arms (bilaterally). Date Reviewed: 08/05/2024 Reviewed by: Curtis Lepe PA-C - Fully Assessed Reason for Visit: Insurance Authorization [[id number]] Cmt: Zavzpret 10MG/ACT solution Zavzpret 10MG/ACT solution [...] (ZOMIG) 5 mg nasal spray Use 1 Thompson in the nose as needed at onset [...] w*09/19/2023 Encounter Status:Closed by RHIANNON BOBO on 08/06/24[facility] 41-85-9489TRAIXgldcd Visit (NHMNS2) APRIL NICHOLSON ([id number]) 1995 F Date Time Provider Department 08/02/24 11:00 AM [facility] During your visit today, we recorded [...] Lymph 1.00 - 4.00 k/uL 0.84 Abs Towns <0.87 k/uL 0.06 Abs Eosin <0.46 k/uL [...] ZOLMitriptan (ZOMIG) 5 mg nasal sprayUse 1 Thompson in the nose as needed at onset [...] Behaviors: no pain be (more content not included)...NormalSt. [facility], [facility] CampusCNPNon 25-99-6451OCFZOdvqsmnjq (NIQ) APRIL NICHOLSON ([id number]) 1995 F Date Time Provider Department 07/05/24 [...] (ZOMIG) 5 mg nasal spray Use 1 Thompson in the nose as needed at onset [...] w*09/19/2023 Encounter Status:Closed by MENDOZA DOOLEY on 07/05/24NoDoctors HospitalUrinalysis macro (dipstick) panel (U)on 77-66-1564Onuoabocm, UANegative Negative - 4(70) +++ mg/dLNOMS HealthcareBlood, [...] - 12 mg/dLNOMS HealthcareNOMS HealthcareNCH Lab Reporton 22-07-6653Mzaari NormalNationCleveland Clinic Children's Hospital for RehabilitationComment on above:Performed By: #### DNASTOR #### Performed at [facility] [place], [address] [place] [address] [id number] 05-07-2024 CNPNTelephone (MNOPRX) APRIL NICHOLSON ([id number]) 1995 F Date Time Provider Department 05/07/24 [...] Thanks! Angely Cotton RN [facility] P: , F: Angely Cotton RN 05/08/2024 3:21 PM Signed [facility] received prescription(s) for Ubrelvy 100MG tablets . Benefits investigation was conducted, indicating that a prior authorization is required. All pertinent clinical information was submitted to insurance. Epic- Referral # [id number] Angely Cotton RN [facility] P: , F: Angely Cotton RN 05/13/2024 9:21 AM Signed Ambulatory Pharmacy Prior Authorization Note Provider Intervention Required?: No - Pharmacy completed on your behalf. Was the PA documented within the ePA workqueue?: No Rx Plan: Medicaid MCO ([facility]) Drug: Ubrelvy 100MG tablets Cover My Meds Chong: [id number] Determination: Approved Prior Authorization/Case #: [id number] Prior Authorization Expiration: 05/07/24 Time to PA [...] this submission, please contact [facility] at [phone] Allergies As of Date: 05/07/2024 Noted Allergy [...] Intolerance VORTIOXETINE 08/06/2021 4 - Hives VYEPTI ([facility]PTINE[facility]AB-[facility]) 05/02/2024 2 - Rash 9 - Itching [...] (ZOMIG) 5 mg nasal spray Use 1 Thompson in the nose as needed at onset [...] Encounter Status:Closed by MU (more content not included)...NormalWay[facility] ClevelandIGP,APTIMA HPV,AGE GDLNon 26-77-4207CAO GDLN ACOG TESTINGNote. NOMS HealthcareComment on above:TESTS RESULT FLAG UNITS REF RANGE LAB Clinician Provided Cytology Information Source.............Vagina No. of containers..01 ThinPrep Vial Age Algo ACOG Becca... -20 03 FLAG LEGEND: L-Low Normal,H-High Normal,LL-Alert Low,HH-Alert High <-Panic Low,>-Panic High,A-Abnormal,AA-Critical Abnormal Performed at: 01 =G [facility] [address] [place] [address] Pearl Franco MD, IGP, RFX APTIMA HPV ASCUNote.NOMS HealthcareComment on above:TESTS RESULT FLAG UNITS REF RANGE LAB DIAGNOSIS: 02 NEGATIVE FOR INTRAEPITHELIAL LESION OR MALIGNANCY. Specimen adequacy: 02 Satisfactory for evaluation. No endocervical component is identified. Performed by: Daksha Nichole, Insurance Writer . 02 Note: Note 02 The Pap [...] High,A-Abnormal,AA-Critical Abnormal Performed at: 02 WB [facility] [address] [place] [address] Pearl Franco MD, Performed at: =G - [facility] [address] [id number] Telehealth Case Manager: Pearl Franco MD, Phone: [phone] Performed at: - [facility] [id number] Telehealth Case Manager: Pearl Franco MD, Phone: [phone] SPATULA-ALONE VAGINA CLINISYNCNOMS HealthcareCBC auto differentialon 14-26-7275Acna form neutrophils/100 WBC (Bld)3 %[facility] HospitalEosinophils (Bld) [#/Vol]0.3 10*3/uLCleveland Clinic Fairview HospitalEosinophils/100 WBC (Bld)3 %[facility] HospitalErythrocyte distribution width (RBC) [Ratio]13.7 %11.5 - 15.0 %[facility] HospitalHematocrit (Bld) [Volume fraction]32.8 %Low35 - 47 %[facility] HospitalHemoglobin (Bld) [Mass/Vol]11.1 g/dLLow11.7 - 15.5 g/dLCleveland Clinic Fairview HospitalInterpretation and review of laboratory resultsAbnormalCleveland Clinic Fairview HospitalLymphocytes (Bld) [#/Vol]1.2 10*3/[facility] Lymphocytes/100 WBC (Bld)12 %[facility] HospitalMCH (RBC) [Entitic mass]29 pg27 - 34 pgPDelaware County HospitalMCHC (RBC) [Mass/Vol]33.8 g/dL32 - 36 g/dL [facility] HospitalMCV (RBC) [Entitic vol]86 fL80 - [address] [facility] HospitalMonocytes (Bld) [#/Vol]0.6 10*3/[facility] HospitalMonocytes/100 WBC (Bld)6 %[facility] HospitalNeutrophils (Bld) [#/Vol]7.6 10*3/uLHigh [facility] HospitalPlatelet mean volume (Bld) [Entitic vol]7.7 fL7 - 12 fL [facility] HospitalPlatelets (Bld) [#/Vol]225 10*3/[facility] Polychromasia LM Ql (Bld)1+AbnormalNONE^NONECleveland Clinic Fairview HospitalRBC (Bld) [#/Vol]3.82 10*6/uLUNC Health Rexegmented neutrophils/100 WBC (Bld)76 %[facility] HospitalWBC corrected for nucl RBC Auto (Bld) [#/Vol]9.7 [facility] University HospitalComprehensive metabolic panelon 70-09-8117Fdgeikj [Mass/Vol]3.3 g/dL3.2 - 5.3 g/dLProCleveland Clinic Hillcrest Hospital SystemALP [Catalytic activity/Vol]80 U/L39 - 130 U/[facility] SystemALT No additional P-5'-P [Catalytic activity/Vol]39 U/LHigh0 - 31 U/[facility] Health SystemAnion gap [Moles/Vol]7 mmol/L5 - 15 mmol/LPrCentennial Peaks Hospital Health SystemAST [Catalytic activity/Vol]16 U/L0 - 41 U/[facility] SystemBilirubin [Mass/Vol]0.3 mg/dL0.3 - 1.2 mg/dLCleveland Clinic Fairview HospitalCalcium [Mass/Vol]9.2 mg/dL8.5 - 10.5 mg/dLCleveland Clinic Fairview HospitalChloride [Moles/Vol]107 mmol/L98 - 109 mmol/[facility] SystemCO2 [Moles/Vol]27 mmol/L22 - 32 mmol/[facility] SystemCreatinine [Mass/Vol]0.55 mg/dL0.40 - 1.00 mg/dLCleveland Clinic Fairview HospitalComment on above:METHOD TRACEABLE TO [facility] STANDARDeGFR (CKD-EPI)non-race dependent- CJW Medical CenterComment on above: Reported eGFR is based on the CKD-EPI 2020 equation that does not use a race coefficient. Glucose [Mass/Vol]102 mg/qWWwbe15 - 99 mg/dLCleveland Clinic [facility] Hospital Interpretation and review of laboratory resultsAbnormalC[facility] Potassium [Moles/Vol]4.1 mmol/L3.5 - 5.0 mmol/[facility] SystemProtein [Mass/Vol]6.4 g/dL6.0 - 8.0 g/dLUNC Health Rexodium [Moles/Vol]141 mmol/L134 - 146 mmol/[facility] SystemUrea nitrogen [Mass/Vol]9 mg/dL5 - 23 mg/dLHahnemann University HospitalBacteria identified Cx Nom (U)on 79-40-5378Kxitxhm comment (Unsp spec) [Interp]URINE RECEIVED WITHOUT PRESERVATIVEProCleveland Clinic Hillcrest Hospital SystemService comment (Unsp spec) [Interp]10-50,000 ORGANISMS/mL NORMAL UROGENITAL FLORAProHelen M. Simpson Rehabilitation HospitalBasic Metabolic Panelon 48-35-0398Czwfu gap [Moles/Vol]12 mmol/L5 - 15 mmol/LPrUniversity Hospitals St. John Medical Center SystemCalcium [Mass/Vol]8.9 mg/dL8.5 - 10.5 mg/dL [facility] HospitalChloride [Moles/Vol]103 mmol/L98 - 109 mmol/LPrCentennial Peaks Hospital Health SystemCO2 [Moles/Vol]24 mmol/L22 - 32 mmol/LPrUniversity Hospitals St. [facility] Center System Creatinine [Mass/Vol]0.61 mg/dL0.40 - 1.00 mg/dLCleveland Clinic Fairview HospitalComment on above:METHOD TRACEABLE TO IDOR STANDARDeGFR (CKD-EPI)non-race dependent- PINF [facility] HospitalComment on above: Reported eGFR is based on the CKD-EPI 2020 equation that does not use a race coefficient. Glucose [Mass/Vol]106 mg/mONtvb04 - 99 mg/dLCleveland Clinic [facility] Hospital Interpretation and review of laboratory resultsAbMount Sinai Hospital Potassium [Moles/Vol]4 mmol/L3.5 - 5.0 mmol/[facility] SystemSodium [Moles/Vol]139 mmol/L134 - 146 mmol/LPrUniversity Hospitals [address]. John Medical Center SystemUrea nitrogen [Mass/Vol]9 mg/dL5 - 23 mg/dLHahnemann University HospitalCBC auto differentialon 73-95-1842Pyer form neutrophils/100 WBC (Bld)1 %[facility] HospitalEosinophils (Bld) [#/Vol]0.8 10*3/uLCentra Lynchburg General Hospital Eosinophils/100 WBC (Bld)6 %[facility] HospitalErythrocyte distribution width (RBC) [Ratio]13.5 %11.5 - 15.0 %[facility] HospitalHematocrit (Bld) [Volume fraction]32.9 %Low35 - 47 %[facility] HospitalHemoglobin (Bld) [Mass/Vol]11.2 g/dLLow11.7 - 15.5 g/dLCleveland Clinic Fairview HospitalInterpretation and review of laboratory resultsAbMount Sinai HospitalLymphocytes (Bld) [#/Vol]1.5 10*3/[facility] HospitalLymphocytes/100 WBC (Bld)11 %[facility] HospitalMCH (RBC) [Entitic mass]28.8 pg27 - 34 [facility] MCHC (RBC) [Mass/Vol]34 g/dL32 - 36 g/dLCleveland Clinic Fairview HospitalMCV (RBC) [Entitic vol]85 fL80 - [address] [facility] HospitalMonocytes (Bld) [#/Vol]0.5 10*3/uLCleveland Clinic Fairview HospitalMonocytes/100 WBC (Bld)4 %[facility] Neutrophils (Bld) [#/Vol]10.6 10*3/uLCentra Lynchburg General HospitalPlatelet mean volume (Bld) [Entitic vol]7.5 fL7 - 12 [facility] HospitalPlatelets (Bld) [#/Vol]232 10*3/[facility] HospitalPolychromasia LM Ql (Bld)1+Abnormal NONE^NONECleveland Clinic Fairview HospitalRBC (Bld) [#/Vol]3.89 10*6/[facility] Hospitalegmented neutrophils/100 WBC (Bld)78 %[facility] HospitalWBC corrected for nucl RBC Auto (Bld) [#/Vol]13.4HighEncompass Health Rehabilitation Hospital of SewickleyMRSA DNA SAURABH+probe Ql (Unsp spec)on 59-57-4443JrmJafqraCleveland Clinic Fairview HospitalMrsa Pcr nasal swabon 83-12-2835WTXG DNA SAURABH+probe Ql (Unsp spec) NegativeNegative^NegativeCleveland Clinic Fairview HospitalAPTTon 59-11-3170xELQ Coag (PPP) [Time]35 [facility] HospitalBasic Metabolic Panelon 58-16-0148Byixa gap [Moles/Vol]10 mmol/L5 - 15 mmol/[facility] SystemCalcium [Mass/Vol]9.4 mg/dL8.5 - 10.5 mg/dLCleveland Clinic Fairview HospitalChloride [Moles/Vol]101 mmol/L98 - 109 mmol/[facility] SystemCO2 [Moles/Vol]26 mmol/L22 - 32 mmol/[facility] HospitalCreatinine [Mass/Vol]0.61 mg/dL0.40 - 1.00 mg/dLCleveland Clinic Fairview HospitalComment on above:METHOD TRACEABLE TO IDOR STANDARDeGFR (CKD-EPI)non-race dependent- CJW Medical CenterComment on above: Reported eGFR is based on the CKD-EPI 2020 equation that does not use a race coefficient. Glucose [Mass/Vol]94 mg/dL65 - 99 mg/dLCleveland Clinic Fairview HospitalPotassium [Moles/Vol]4 mmol/L3.5 - 5.0 mmol/[facility] SystemSodium [Moles/Vol]137 mmol/L134 - 146 mmol/[facility] HospitalUrea nitrogen [Mass/Vol]10 mg/dL5 - 23 mg/dLCleveland Clinic Fairview HospitalC-reactive proteinon 50-45-1795UEE [Mass/Vol] 15.4 mg/dLHigh0.000 - 0.744 mg/dLCleveland Clinic Fairview HospitalCBC auto differentialon 12-25-0024Rtrcdykqa (Bld) [#/Vol]0.1 10*3/uLCleveland Clinic Fairview HospitalBasophils/100 WBC (Bld)0.5 %[facility] HospitalEosinophils (Bld) [#/Vol]0.2 10*3/uL [facility] HospitalEosinophils/100 WBC (Bld)1.1 %[facility] Erythrocyte distribution width (RBC) [Ratio]13.4 %11.5 - 15.0 %[facility] HospitalHematocrit (Bld) [Volume fraction]37.6 %35 - 47 %[facility] Hemoglobin (Bld) [Mass/Vol]12.8 g/dL11.7 - 15.5 g/dLC[facility] Clinic [facility] Interpretation and review of laboratory resultsAbnormalC[facility] Lymphocytes (Bld) [#/Vol]1.3 10*3/uLCleveland Clinic Fairview HospitalLymphocytes/100 WBC (Bld)6.7 %[facility] HospitalH (RBC) [Entitic mass]28.7 pg27 - 34 pg [facility] HospitalMCHC (RBC) [Mass/Vol]34.1 g/dL32 - 36 g/dLCleveland Clinic Fairview HospitalMCV (RBC) [Entitic vol]84 fL80 - 100 [facility] Monocytes (Bld) [#/Vol]0.7 10*3/[facility] HospitalMonocytes/100 WBC (Bld) 3.5 %[facility] HospitalNeutrophils (Bld) [#/Vol]17.2 10*3/uLHighCleveland Clinic Fairview HospitalNeutrophils/100 WBC (Bld)88.2 %[facility] HospitalPlatelet mean volume (Bld) [Entitic vol]8.5 fL7 - 12 [facility] SystemPlatelets (Bld) [#/Vol]290 10*3/[facility] HospitalRBC (Bld) [#/Vol]4.46 10*6/[facility] HospitalWBC corrected for nucl RBC Auto (Bld) [#/Vol]19.6HighHahnemann University HospitalCRP [Mass/Vol]on 76-29-5023Sytrurucxcphpl and review of laboratory resultsAbnormalHahnemann University HospitalCT Abdomen and Pelvis W contrast Pat 44-52-9187XR ABDOMEN AND PELVIS W CONT HISTORY: Abdominal [...] 4:09 PM [facility] SystemRadiology Study observation (narrative)[facility] HospitalCT Abdomen and Pelvis W contrast IVOrdered By: Kyle oSlorio on 04-08-2024 [facility] Work Phone: ecg 12 leadon 41-10-5526RSIXBAVNEFIYSAVuwNeapxl Health SystemLaboratory - Microbiology and Antimicrobial susceptibilityon 04-08-2024 FLUAV+FLUBV RNA SAURABH+probe Ql (Unsp spec)NegativeNegative^NegativeUniversity Hospitals Lake West Medical Center SystemLactate (P anuradha) [Moles/Vol]on 98-83-6757ExzEfyscoCleveland Clinic [facility] Hospital Lactate w/ Reflexon 68-25-9681Woaxply (P anuradha) [Moles/Vol]0.8 mmol/L0.4 - 2.0 mmol/[facility] SystemComment on above: Result did not trigger repeat Lactate, re-order if needed. Liver panelon 43-45-1270Zafezbw [Mass/Vol]3.9 g/dL3.2 - 5.3 g/dLCleveland Clinic Fairview HospitalALP [Catalytic activity/Vol]88 U/L39 - 130 U/[facility] SystemALT No additional P-5'-P [Catalytic activity/Vol]59 U/LHigh0 - 31 U/[facility] SystemAST [Catalytic activity/Vol]26 U/L0 - 41 U/[facility] Bilirubin [Mass/Vol]0.7 mg/dL0.3 - 1.2 mg/dLC[facility] Clinic [facility] Bilirubin.direct [Mass/Vol]0 mg/dL0.0 - 0.4 mg/dLC[facility] Interpretation and review of laboratory resultsAbnormalC[facility] Protein [Mass/Vol]7.3 g/dL6.0 - 8.0 g/dLCleveland Clinic [facility]view HospitalMagnesiumon 21-01-5153Ojhktsnjj [Mass/Vol]1.8 mg/dL1.8 - 2.6 mg/dLCleveland Clinic Fairview HospitalNo Panel Informationon 55-17-8655UyoDacdjmHahnemann University HospitalPOCT Nursing Urine Macroscopic UAon 97-19-5540Ghaoucbst Ql (U)Negative Negative^NegativeProMedica Health SystemGlucose [Mass/Vol]Negative Negative^Negative mg/dLCleveland Clinic Fairview HospitalHemoglobin Ql (U)TraceAbnormal Negative^NegativeC[facility] Clinic Fairview HospitalInterpretation and review of laboratory resultsAbnoWatauga Medical CenterKetones (U) [Mass/Vol]Negative Negative^Negative mg/dLCleveland Clinic [facility]view HospitalLeukocyte esterase Test strip Ql (U)NegativeNegative^NegativeC[facility] Clinic [facility] HospitalNitrite Ql (U)Negative Negative^NegativeCleveland Clinic Fairview HospitalpH (U)7.5 [pH]5.0 - 8.5PDelaware County HospitalProtein Ql (U)TraceAbnormalNegative^Negative mg/dLC[facility] Clinic [facility] Hospital Specific gravity (U) [Rel density]1.021.003 - 1.035[facility] Urobilinogen Qn (U)0.2NINFHahnemann University HospitalProtime & INRon 45-33-0000XTN Coag (PPP) [Relative time]1.3 {INR}HighCleveland Clinic Fairview HospitalInterpretation and review of laboratory resultsAbnoWatauga Medical CenterPT Coag (PPP) [Time]14.7 sHigUNC Medical CenterARS/FLU A+B/RSV by NAAT/Molecular (M4RT Collection Tube)on 24-28-6436LJT RNA SAURABH+probe Nom (Unsp spec)NegativeNegative^NegativeUNC Health RexARS-CoV-2 (COVID-19) RNA SAURABH+probe Ql (Resp)Not detectedNot Detected^Not DetectedC[facility] Clinic [facility] Hospital Comment on above:NOTE The Xpert Xpress [...] operators who are performing tests using either [employer] or Stealth10 systems and is limited to laboratories that [...] specimen repeat. Fact Sheet for Healthcare Providers: https://www.fda.gov/media/767607/download Fact Sheet for Patients: https://www.fda.gov/media/125065/download [facility] HospitalThyroid profile includes TSH FT4on 43-39-1261Sixm T4 [Mass/Vol]0.62 ng/dL0.61 - 1.60 ng/dLCleveland Clinic Fairview HospitalTSH Qn0.54 m[IU]/L [facility] HospitalTroponin I, High Sensitivityon 14-03-4872Mjmmbihq I.cardiac High sensitivity method [Mass/Vol]2 ng/LNINF - 16 ng/LProMedCoshocton Regional Medical CenterTroponin I, High Sensitivity 1 Houron 04-08-2024 Troponin I.cardiac High sensitivity method [Mass/Vol]2 ng/LNINF - 16 ng/L [facility] HospitalTroponin I.cardiac High sensitivity method [Mass/Vol]on 51-85-0173FahQkuwtdHahnemann University HospitalXR Chest Single viewon 04-08-2024 XR CHEST 1 VW History: Short of breath. One view study. Comparison: 01/23/2024 Impression: * Lungs are now clear. No focal airspace disease or infiltrate is appreciated. No acute process is seen. Finalized by Renetta Andrea MD on 04/08/2024 2:12 PMSECTRATippah County Hospitalmarbin, Renetta Gentile MD - 04/08/2024 XR CHEST 1 VW History: Short of breath. One view study. Comparison: 01/23/2024 Impression: * Lungs are now clear. No focal airspace disease or infiltrate is appreciated. No acute process is seen. Finalized by Renetta Andrea MD on 04/08/2024 2:12 PM [facility] HospitalRadiology Study observation (narrative)[facility] SystemXR Chest Single viewOrdered By: Renetta Andrea on 28-57-2697LevNmimukCleveland Clinic [facility]view Hospital Work Phone: ecg 12 leadon 06-66-9425XZBFFBJOFVASRYSozTejcqa Health SystemABO Rh Re[place] 55-60-3773BLERRigUfwzamCrouse HospitalRh Nom (Bld)Positive [facility] SystemType and screen(includes indirect ady)on 54-95-4452KIUCSzwBbhxvmCrouse HospitalRh Nom (Bld)PositiveMayo Clinic Health System Franciscan Healthcare SystemRespiratory allergy panelon 03-21-2024. alternata IgE Qn [...] kU/LProMedica Health SystemComment on above:Class 0: NormalCalifornia Bayard Pollen IgE Qn (S)kU/LNINF - 0.10 kU/L [...] level of Allergy, indicative of ongoing sensitization [place] IgE Qn (S)0.25 kU/LHighNINF - 0.10 kU/LProMedica Health SystemComment on above:Class 0/1: Low level of Allergy, ongoing sensitization Dog dander IgE Qn (S)52.5 kU/LHighNINF - 0.10 kU/LProMedica Health SystemComment on above:Class 5:Very High level of Allergy,indicative of very high level sensitization house dust mite IgE Qn (S)kU/LNINF - 0.10 kU/LProMedica Health System Comment on above:Class 0: NormalGoosefoot IgE Qn (S)kU/LNINF - 0.10 kU/L [facility] SystemComment on above:Class 0: NormalIgE Qn602 [IU]/LHigh ProMjack [facility] Health SystemInterpretation and review of laboratory resultsAbnormal [facility] SystemJohnson grass IgE Qn (S)0.96 kU/LHighNINF - 0.10 kU/L [facility] SystemComment on above:Class 2:Moderate level [...] Health SystemComment on above:Class 0: NormalPecan or [place] Tree IgE Qn (S)0.17 kU/LHighNINF - 0.10 kU/LProMedica Health SystemComment on above: Class 0/1: Low level of Allergy, ongoing sensitization Saltwort IgE Qn (S)0.38 kU/LHighNINF - 0.10 kU/LProMedica Health SystemComment on above:Class 1:Low level of Allergy, indicative of ongoing sensitization Sheep Sanborn IgE Qn (S)kU/LNINF - 0.10 kU/LProMedica Health SystemComment on above:Class 0: NormalSilver Birch IgE Qn (S)kU/LNINF - 0.10 kU/LProMedica Health SystemComment on above:Class 0: NormalTimothy IgE Qn (S)1.92 kU/LHighNINF - 0.10 kU/LProMedica Health SystemComment on above:Class 2:Moderate level of Allergy, indicative of stronger ongoing sensitization [place] IgE Qn (S)kU/LNINF - 0.10 kU/[address] [facility] [address] [facility] SystemComment on above: Class 0: NormalWhite Elm IgE Qn (S)kU/LNINF - 0.10 kU/LProMedica Health System Comment on above:Class 0: NormalWhite mulberry IgE Qn (S)kU/LNINF - 0.10 kU/L [facility] SystemComment on above:Class 0: NormalWhite [place] IgE Qn (S)kU/L NINF - 0.10 kU/LProMedica [address] Hospital SystemComment on above:Class 0: NormalCleveland Clinic Fairview HospitalPulmonary function test Spirometry (Flow Volume Loop)Ordered By: Dinorah Cummins on 18-45-4104AjfGvtjxtCleveland Clinic Fairview HospitalCA 125on 53-36-1938Pypgvx Ag 125 Qn7 [arb'U]/mL0 - 35 U/mLCleveland Clinic Fairview HospitalComment on above: The method used for this test is Olga Uniplaces DXI chemiluminescent immunoassay. Values obtained by different assay methods cannot be used interchangeably. CBC auto differentialon 26-04-0746Kqrqmvpxo (Bld) [#/Vol]0 10*3/uLCleveland Clinic Fairview HospitalBasophils/100 WBC (Bld)0.6 %[facility] HospitalEosinophils (Bld) [#/Vol]0.5 10*3/uLHighCleveland Clinic Fairview HospitalEosinophils/100 WBC (Bld)8.4 %[facility] HospitalErythrocyte distribution width (RBC) [Ratio]13.6 %11.5 - 15.0 %[facility] HospitalHematocrit (Bld) [Volume fraction]40.6 %35 - 47 % [facility] HospitalHemoglobin (Bld) [Mass/Vol]13.7 g/dL11.7 - 15.5 g/dL [facility] HospitalInterpretation and review of laboratory resultsAbnormal [facility] HospitalLymphocytes (Bld) [#/Vol]1.3 10*3/uLCleveland Clinic Fairview HospitalLymphocytes/100 WBC (Bld)23.5 %[facility] HospitalMCH (RBC) [Entitic mass]29.2 pg27 - 34 [facility] HospitalMCHC (RBC) [Mass/Vol]33.7 g/dL32 - 36 g/dLCleveland Clinic Fairview HospitalMCV (RBC) [Entitic vol]87 fL80 - 100 [facility] HospitalMonocytes (Bld) [#/Vol]0.3 10*3/uLCleveland Clinic Fairview Hospital Monocytes/100 WBC (Bld)5.3 %[facility] HospitalNeutrophils (Bld) [#/Vol]3.5 10*3/uLCleveland Clinic Fairview HospitalNeutrophils/100 WBC (Bld)62.2 %[facility] HospitalPlatelet mean volume (Bld) [Entitic vol]8.9 fL7 - 12 [facility] HospitalPlatelets (Bld) [#/Vol]233 10*3/uLCleveland Clinic Fairview HospitalRBC (Bld) [#/Vol] 4.67 10*6/[facility] HospitalWBC corrected for nucl RBC Auto (Bld) [#/Vol] 5.7[facility] SystemCEAon 03-18-2024 Carcinoembryonic Ag [Mass/Vol]0.9 ng/mL0.0 - 3.0 ng/mLCleveland Clinic Fairview Hospital Comment on above: 0.0-3.0 ng/mL FOR NON SMOKERS 0.0-5.0 ng/mL FOR SMOKERS The method used for this test is Olga [place] DXI chemiluminescent immunoassay. Values obtained by different assay methods cannot be used interchangeably. Cancer Ag 125 Qnon 93-67-1631KaiEynicgCleveland Clinic Fairview HospitalCancer Ag 19-9 Qnon 18-51-0096FikHuwcqkCleveland Clinic Fairview HospitalCancer antigen 19-9on 15-93-4656Ckwvyx Ag 19-9 QnU/mL0.0 - 35.0 U/mLParma Community General Hospital Receept [facility] General HospitalComment on above: The method used for this test is Olga [place] DXI chemiluminescent immunoassay. Values obtained by different assay methods cannot be used interchangeably. Carcinoembryonic Ag [Mass/Vol]on 11-80-2076CsvCwhpxi Health SystemComprehensive metabolic panelon 27-68-3827Dbvebsj [Mass/Vol]4.3 g/dL3.2 - 5.3 g/dLProMobile Infirmary [facility] Health SystemALP [Catalytic activity/Vol]51 U/L39 - 130 U/LProMedica Health SystemALT No additional P-5'-P [Catalytic activity/Vol]21 U/L0 - 31 U/[facility] SystemAnion gap [Moles/Vol]10 mmol/L5 - 15 mmol/LProMedica Health System AST [Catalytic activity/Vol]15 U/L0 - 41 U/LProMedst. vincent's chilton Health SystemBilirubin [Mass/Vol]0.5 mg/dL0.3 - 1.2 mg/dLUniversity [facility] SystemCalcium [Mass/Vol]9.2 mg/dL8.5 - 10.5 mg/dLUniversity [facility]als [facility] SystemChloride [Moles/Vol]104 mmol/L98 - 109 mmol/[facility] SystemCO2 [Moles/Vol]27 mmol/L22 - 32 mmol/[facility] SystemCreatinine [Mass/Vol]0.62 mg/dL0.40 - 1.00 mg/dLCleveland Clinic Fairview HospitalComment on above:METHOD TRACEABLE TO IDOR STANDARDeGFR (CKD-EPI)non-race dependent- CJW Medical CenterComment on above: Reported eGFR is based on the CKD-EPI 2020 equation that does not use a race coefficient. Glucose [Mass/Vol]88 mg/dL65 - 99 mg/dLCleveland Clinic Fairview HospitalInterpretation and review of laboratory resultsAbnormalUniversity [facility]als [facility] SystemPotassium [Moles/Vol]3.4 mmol/LLow3.5 - 5.0 mmol/LProMedica Health SystemProtein [Mass/Vol]6.6 g/dL6.0 - 8.0 g/dLUniversity [facility]als [facility] SystemSodium [Moles/Vol]141 mmol/L134 - 146 mmol/[facility]astic[facility] Health SystemUrea nitrogen [Mass/Vol]12 mg/dL5 - 23 mg/dLMayo Clinic Health System Franciscan Healthcare SystemCNPNon [id number] Telephone ([facility]) APRIL NICHOLSON ([id number]) 1995 F Date Time Provider Department 02/22/24 SAGAR BARTH [facility] During your visit today, we recorded the following information about you: Jannette Castrejon RN 02/22/2024 12:04 PM Signed Prior Authorization submitted via [employer] on 02/22/2024: Insurance: [place] Medicaid Medication: Zolmitriptan Chong Code: [id number] Awaiting Response Jannette Castrejon RN 03/14/2024 2:23 [...] Date Reviewed: 01/22/2024 Reviewed by: Raiza Shields APRN.SUSTAINABILITY ENGINEER - Fully Assessed Reason for Visit: Insurance Authorization [[id number]] Cmt: Zolmitriptan Prescriptions as of 03/14/2024 - ZOLMitriptan (ZOMIG) 5 mg nasal spray Use 1 Thompson in the nose as needed at onset [...] w*09/19/2023 Encounter Status:Closed by JANNETTE CASTREJON on 02/22/24[facility] PELVIS W/ TRANSVAGINALon [id number], [place] [address] Ultrasound Report Signed Patient: MARGARET NICHOLSON MR#: [id number] : 1995 Acct:[id number] Age/Sex: 28 / F ADM Date: 02/19/24 Loc: [place] Attending Dr: Zay Blas D.O. Ordering Physician: Zay Blas D.O. Date of Service: 02/19/24 Procedure(s): US pelvis w/ transvaginal Accession Number(s): [id number] cc: Zay Blas D.O.; Lamont Blair M.D. [address] [place] [address] Patient Name: MARGARET NICHOLSON MRN: [id number] date: 1995 Sex: F Assigned Patient Location: [place] Current Patient Location: [place] Accession/Order Number: [id number] Exam Date: 02/19/2024 07:11 Report Date: 02/19/2024 [...] M.D. Signed By: 02/19/24807 DD/ 4 TD/TT: Home Extension Agent:TBHRadiology, Radiologist, - 02/19/2024 [address] [place] [id number] Ultrasound Report Signed Patient: MARGARET NICHOLSON MR#: [id number] : 1995 Acct:[id number] Age/Sex: 28 / F ADM Date: 02/19/24 Loc: [place] Attending Dr: Zay Blas D.O. Ordering Physician: Zay Blas D.O. Date of Service: 02/19/24 Procedure(s): US pelvis w/ transvaginal Accession Number(s): [id number] cc: Zay Blas D.O.; Lamont Blair M.D. [place] [address] Patient Name: MARGARET NICHOLSON MRN: [id number] date: 1995 Sex: F Assigned Patient Location: US Current Patient Location: [place] Accession/Order Number: [id number] Exam Date: 02/19/2024 07:11 Report Date: 02/19/2024 [...] M.D. Signed By: 02/19/24807 DD/ 4 TD/TT: Home Extension Agent: ARLEN HealthcareRadiology Study observation (narrative)NOMKrupa HealthcareUS PELVIS W/ TRANSVAGINALOrdered By: Radiologist Radiology on [id number] Work Phone: Pathology Request for Lab Corpon [id number] Request for Lab CorpNormAdventHealth Orlando Physician GroupComment on above:Order Comment: PATHOLOGY GI SPECIMENResult Comment: See report. Scanned copy available in EMR. PERFORMED BY: [place] [address] PATHOLOGIST SUPERVISOR MAILS PALOMO JOYCE M.D.Performed By: #### PATH TO [facility] #### [place] [address] USACNPNon [id number] ([facility]) APRIL NICHOLSON ([id number]) 1995 F Date Time Provider Department 01/29/24 SAGAR BARTH [facility] During your visit today, we recorded the following information about you: Kelsey Patel 01/29/2024 10:53 AM Signed Name of Caller: nicky Relationship to patient: pharmacy Last visit in this department: 09/19/2023 Reason for Call: Other : need to verify quantity on zolmitriptan. Callback number: [phone] Amy Shrestha MA 01/29/2024 12:06 PM Signed Per last Rx on 11/10/2023: Disp Refills Start End ZOLMitriptan (ZOMIG) 5 mg nasal spray 10 Each 5 11/10/2023 -- Sig: Use 1 Thompson in the nose as needed at onset [...] spray 12 Each 5 Sig: Use 1 Thompson in the nose as needed at onset [...] Date Reviewed: 01/22/2024 Reviewed by: Raiza Shields APRN.SUSTAINABILITY ENGINEER - Fully Assessed Order(s):ZOLMitriptan (ZOMIG) 5 mg nasal sprayUse 1 Thompson in the nose as needed at onset of migraine headache. If symptoms persist or return, may repeat dose in other nostril after 2 hours. Maximum of 2 sprays per 24 hoursDisp: 12 EachRfl: 5 Prescriptions as of 02/01/2024 - ZOLMitriptan (ZOMIG) 5 mg nasal spray Use 1 Thompson in the nose as needed at onset [...] 5 01/30/2024 Route: NASAL Sig: Use 1 Thompson in the nose as needed at onset of migraine headache. If symptoms persist or return, may repeat dose in other nostril after 2 hours. Maximum of 2 sprays per 24 hours Medications Discontinued During This Encounter Prescriptions - ZOLMitriptan (ZOMIG) 5 mg nasal spray (Discontinued) Use 1 Thompson in the nose as needed at onset of migraine headache. If symptoms persist or return, may repeat dose in other nostril after 2 hours. Maximum of 2 sprays per 24 hours Encounter Status:Closed by KELSEY PATEL on 01/30/24[facility] [id number] Visit (NHMNS2) NICHOLSONCAROLINA ROGERSRA Fernández ([id number]) 1995 F Date Time Provider Department 01/22/24 2:30 PM [facility] During your visit today, we recorded the following information about you: Raiza Shields APRN.[facility] 01/22/2024 1:57 PM Signed Headache Center [...] Lymph 1.00 - 4.00 k/uL 0.84 Abs Towns <0.87 k/uL 0.06 Abs Eosin <0.46 k/uL [...] ZOLMitriptan (ZOMIG) 5 mg nasal sprayUse 1 Thompson in the nose as needed at onset [...] and clear, coherent, and relevant. Short and fpc memory, cognition and general fund of knowledge [...] hold extra IV fluids (more content not included)...NormalSt. Mary'S Medical Center, Ironton CampusBLOOD GASES BTYon [facility] Medical Centerment on above:Performed By: #### BMP #### [facility] [address] [address] [address] Ibis Pedraza TESTPositiveLima City HospitalComselect specialty hospital-[place]ont[place] on above: Performed By: #### BMP #### [facility] [address] [place] [address] Dr. Ibis An excess Calc (Bld) [Moles/Vol]-1.6000 mmol/LNormal-2.0-2.0The [facility] on above:Performed By: #### BMP #### [facility] [address] [place] [address] Dr. Ibis Elizalde Green Cross HospitalComselect specialty hospital-[place] on above: Performed By: #### BMP #### [facility] [address] [place] [address] Dr. Ibis JimenezCPAPTwin City Hospital on above:Performed By: #### BMP #### [facility] [address] [place] [address] Dr. Ibis JimenezQlfowIZL0TtxwfmXuiTwin City Hospital on above:Performed By: #### BMP #### [facility] [address] [place] [address] Dr. Ibis JimenezHCO3 (Bld) [Moles/Vol]23.8 mmol/GMwrlqe42.0-26.0The [facility] on above:Performed By: #### BMP #### [facility] [address] [place] [address] Dr. Ibis JimenezLPMNMercy Health Perrysburg Hospital on above:Performed By: #### BMP #### [facility] [address] [address] [address] Ibis Sheffield [facility] Cleveland EastComment on above: Performed By: #### BMP #### [facility] [address] [address] [address] Ibis Amezquita (Bld) [Partial pressure]75.5 mm[Hg]Critically low 80.0-100.0The [facility] CenterComment on above:Performed By: #### BMP #### [facility] [address] [address] [address] Ibis Amezquita saturation in Blood95.8 %Vgqibq67.0-100.0The [facility] CenterComment on above:Performed By: #### BMP #### [facility] [address] [place] [address] Dr. Ibis JimenezPCO241.8 crLoKiunhf97.0-45.0The [facility] CenterComselect specialty hospital-[place] on above:Performed By: #### BMP #### [facility] [address] [place] [address] Dr. Ibis JimenezGerman HospitalComselect specialty hospital-[place] on above:Performed By: #### BMP #### [facility] [address] [place] [address] Dr. Ibis JimenezpH (Bld)7.363 [pH]Normal7.350-7.450The [facility] CenterComselect specialty hospital-[place] on above:Performed By: #### BMP #### [facility] [address] [place] [address] Dr. Ibis RennerormalThe [facility] CenterComselect specialty hospital-[place] on above:Performed By: #### BMP #### [facility] [address] [place] [address] Dr. Ibis JimenezGood Samaritan HospitalComselect specialty hospital-[place] on above:Performed By: #### BMP #### [facility] [address] [place] [address] Dr. Ibis Lindsey The [facility] HospitalComselect specialty hospital-[place] on above: Performed By: #### BMP #### [facility] [address] [place] [address] Dr. Ibis OliveiraThe [facility] CenterComment on above:Performed By: #### BMP #### [facility] [address] [place] [address] Dr. Ibis Chow [facility] Hospital Cleveland WestComment on above:Performed By: #### BMP #### [facility] [address] [place] [address] Dr. Ibis JimenezLake County Memorial Hospital - WestComment on above:Performed By: #### BMP #### [facility] [address] [place] [address] Dr. Ibis Alexis AUTO DIFFon [id number] #0.0 103/ulNormal0.0-0.1The [facility] Medical Centerment on above:Performed By: #### ACET, SALYC #### [facility] [address] [place] [address] Dr. Ibis JimenezBasophils/100 WBC (Bld)0.5 %Normal0.2-2.0[facility] Comment on above:Performed By: #### ACET, SALYC #### [facility] [address] [place] [address] Dr. Ibis Acevedo #0.3 103/ulNormal0.0-0.7The [facility] CenterComselect specialty hospital-[place] on above: Performed By: #### ACET, SALYC #### [facility] [address] [place] [address] Dr. Ibis Rojasosinophils/100 WBC (Bld)4.2 %Normal0.9-7.0[facility] Comment on above:Performed By: #### ACET, SALYC #### [facility] [address] [place] [address] Dr. Ibis Rojasrythrocyte distribution width (RBC) [Ratio]13.2 %Crblym27.0-15.0 Cherrington HospitalComment on above:Performed By: #### ACET, SALYC #### [facility] [address] [place] [address] Dr. Ibis JimenezHematocrit (Bld) [Volume fraction]36.5 %Ranrmb63.0-48.0The [facility] CenterComment on above:Performed By: #### ACET, SALYC #### [facility] [address] [place] [address] Dr. Ibis JimenezHemoglobin (Bld) [Mass/Vol]11.7 g/dLCritically low12.0-16.0The [facility] CenterComment on above:Performed By: #### ACET, SALYC #### [facility] [address] [place] [address] Dr. Ibis Soto #0.05 10e3/ulCritically high0.00-0.03The [facility] Comment on above:Performed By: #### ACET, SALYC #### [facility] [address] [place] [address] Dr. Ibis Soto %0.8 %Critically high0.0-0.5The [facility] CenterComment on above:Performed By: #### ACET, SALYC #### [facility] [address] [place] [address] Dr. Ibis Monsalve #1.7 103/ulNormal1.2-3.8The [facility] CenterComment on above:Performed By: #### ACET, SALYC #### [facility] [address] [place] [address] Dr. Ibis Brennerhocytes/100 WBC (Bld)26.9 %Uomotl79.5-60.0The [facility] CenterComment on above:Performed By: #### ACET, SALYC #### [facility] [address] [place] [address] Dr. Ibis NewtonUAL DIFF REQNONormalThe [facility] CenterComment on above: Performed By: #### ACET, SALYC #### [facility] [address] [place] [address] Dr. Ibis Irby (RBC) [Entitic mass]28.7 ylBbaosf95.7-34.0The [facility] CenterComment on above:Performed By: #### ACET, SALYC #### [facility] [address] [place] [address] Dr. Ibis Frank (RBC) [Mass/Vol]32.1 g/qFVgebsj54.9-35.2The [facility] CenterComment on above:Performed By: #### ACET, SALYC #### [facility] [address] [place] [address] Dr. Ibis Frank (RBC) [Entitic vol]89.7 xRFforox51.0-99.0The [facility] CenterComment on above:Performed By: #### ACET, SALYC #### [facility] [address] [place] [address] Dr. Ibis Magallanes #0.6 103/ulNormal0.3-0.8The [facility] CenterComment on above:Performed By: #### ACET, SALYC #### [facility] [address] [place] [address] Dr. Ibis Barbaocytes/100 WBC (Bld)8.9 %Normal1.7-12.0The [facility] Comment on above:Performed By: #### ACET, SALYC #### [facility] [address] [place] [address] Dr. Ibis Schultz #3.8 103/ulNormal1.4-6.5The [facility] CenterComment on above:Performed By: #### ACET, SALYC #### [facility] [address] [place] [address] Dr. Ibis Hiutrophils/100 WBC (Bld)58.7 %Oumedc96.0-75.0The [facility] CenterComment on above:Performed By: #### ACET, SALYC #### [facility] [address] [place] [address] Dr. Ibis Faye mean volume (Bld) [Entitic vol]9.3 fLCritically low 9.5-13.5The [facility] CenterComment on above:Performed By: #### ACET, SALYC #### [facility] [address] [place] [address] Dr. Ibis JimenezPLT188 103/byHutmcu371-103Ois [facility] on above: Performed By: #### ACET, SALYC #### [facility] [address] [address] [address] Ibis ConleyC4.07 106/ulCritically low4.20-5.40The [facility] on above:Performed By: #### ACET, SALYC #### [facility] [address] [place] [address] Dr. Ibis JimenezWBC6.4 103/ulNormal4.0-11.0[facility] on above: Performed By: #### ACET, SALYC #### [facility] [address] [place] [address] Dr. Ibis Cristina SCREEN RAPID (URINE)on 09-78-1972EDXQehokrxmCaooggSSYRUEBE [facility] HospitalComselect specialty hospital-[place] on above:Performed By: #### BMP #### [facility] [address] [place] [address] Dr. Ibis ParkinsonPositiveAbnormalNEGATIVEMcKitrick Hospital on above: Performed By: #### BMP #### [facility] [address] [place] [address] Dr. Ibis MarquesPNegativeNormalNEGATIVEMcKitrick Hospital on above: Performed By: #### BMP #### [facility] [address] [place] [address] Dr. Ibis MartinZOPositiveAbnormalNEGATIVECherrington HospitalComselect specialty hospital-[place] on above: Performed By: #### BMP #### [facility] [address] [place] [address] Dr. Ibis DanielCNegativeNormalNEGATIVECherrington HospitalComselect specialty hospital-[place] on above: Performed By: #### BMP #### [facility] [address] [place] [address] Dr. Ibis Yan-The Jewish HospitalComment on above: Result Comment: AMP (Amphetamine): 500ng/mL, BAR (Barbituates): 200 ng/mL, BZO (Benzodiazepines): 150 ng/mL, BUP (Buprenorphine): 10 ng/mL, SEMAJ (Cocaine): 150 ng/mL, mAMP (Methamphetamine): 500 ng/mL, MTD (Methadone): 200 ng/mL, OPI (Opiates): 100 ng/mL, OXY (Oxycodone): 100 ng/mL, PCP (Phencyclidine): 25 ng/mL, PPX (Propoxyphene): 300 ng/mL, THC (Cannabinoids): 50 ng/mL, TCA (Trycyclic Antidepressants): 300 ng/mLPerformed By: #### BMP #### [facility] [address] [place] [address] Dr. Ibis JimenezDRUG CUT HEADERDRUG CLASS TEST SYSTEM CUT-OFF CONCENTRATIONS ARE FOLLOWS:NormalMcKitrick Hospital on above:Performed By: #### BMP #### [facility] [address] [place] [address] Dr. Ibis JimenezmAMPNegativeNormalNEGATIVECherrington HospitalComment on above: Performed By: #### BMP #### [facility] [address] [place] [address] Dr. Ibis JimenezMTDNegativeNormalNEGATIVEMcKitrick Hospital on above: Performed By: #### BMP #### [facility] [address] [place] [address] Dr. Ibis SenINegativeNormalNEGATIVEMcKitrick Hospital on above: Performed By: #### BMP #### [facility] [address] [place] [address] Dr. Ibis JimenezOXYNegativeNormalNEGATIVEMcKitrick Hospital on above: Performed By: #### BMP #### [facility] [address] [place] [address] Dr. Ibis JimenezPCPNegativeNormalNEGATIVEMcKitrick Hospital on above: Performed By: #### BMP #### [facility] [address] [place] [address] Dr. Ibis JimenezPPXNegativeNormalNEGATIVECherrington HospitalComment on above: Performed By: #### BMP #### [facility] [address] [address] [address] Ibis JimenezTCAPositiveAbnormalNEGATIVECherrington HospitalComselect specialty hospital-[place] on above: Performed By: #### BMP #### [facility] [address] [place] [address] Dr. Ibis JimenezTHCPositiveAbnormalNEGATIVECherrington HospitalComment on above: Performed By: #### BMP #### [facility] [address] [address] [address] Ibis Drake URINE PROFILEon 16-86-5878Rvfedcjfw Ql (U)NegativeNormal NEGATIVECherrington HospitalComment on above:Performed By: #### ACET, SALYC #### [facility] [address] [place] [address] Dr. Ibis JimenezClarity (U)CLEARNormalCLEARCherrington HospitalComment on above: Performed By: #### ACET, SALYC #### [facility] [address] [place] [address] Dr. Ibis JimenezColor (U)YELLOWNormalYELLOWCherrington HospitalComment on above: Performed By: #### ACET, SALYC #### [facility] [address] [place] [address] Dr. Ibis Chang micrscopic examination will be performed if indicated. NormalThe [facility] CenterComment on above:Performed By: #### ACET, SALYC #### [facility] [address] [place] [address] Dr. Ibis JimenezGlucose Ql (U)NegativeNormalNEGATIVECherrington HospitalComment on above:Performed By: #### ACET, SALYC #### [facility] [address] [place] [address] Dr. Ibis JimenezHemoglobin Ql (U)NegativeNormalNEGATIVECommunity Memorial Hospital on above:Performed By: #### ACET, SALYC #### [facility] [address] [place] [address] Dr. Ibis JimenezKetones Ql (U)NegativeNormalNEGATIVECherrington HospitalComment on above:Performed By: #### ACET, SALYC #### [facility] [address] [place] [address] Dr. Ibis JimenezLEUKOCYTESNegativeNormalNEGATIVEThe [facility] CenterComment on above:Performed By: #### ACET, SALYC #### [facility] [address] [place] [address] Dr. Ibis JimenezNitrite Ql (U)NegativeNormalNEGATIVEThe [facility] CenterComment on above:Performed By: #### ACET, SALYC #### [facility] [address] [place] [address] Dr. Ibis JimenezpH (U)5.0 [pH]Normal5-9The [facility] on above: Performed By: #### ACET, SALYC #### [facility] [address] [place] [address] Dr. Ibis JimenezSPEC GRAVITY>=1.250Oipyewlq3.005-<=1.025The [facility] Comment on above:Performed By: #### ACET, SALYC #### [facility] [address] [place] [address] Dr. Ibis Quintanilla PROTEINNegativeNormalNEGATIVE/ TRACEThe [facility] Comment on above:Performed By: #### ACET, SALYC #### [facility] [address] [place] [address] Dr. Ibis JimenezUR MICRO INDNOT INDICATEDNormalThe [facility] CenterComment on above:Performed By: #### ACET, SALYC #### [facility] [address] [place] [address] Dr. Ibis JimenezUrobilinogen Qn (U)0.2 {Dinorah'U}/dLNormal0.2 - 1.0The [facility] on above:Performed By: #### ACET, SALYC #### [facility] [address] [place] [address] Dr. Ibis JimenezPROF CHEM 8 (BAS METB)on 52-07-2583Glzcy gap [Moles/Vol]13.1 mmol/LNormalThe Alejandra HospitalComment on above:Performed By: #### MONO #### [facility] [address] [address] [address] Ibis JimenezCalcium [Mass/Vol]8.3 mg/dLCritically low8.5-10.1The [facility] CenterComment on above:Performed By: #### MONO #### [facility] [address] [address] [address] Ibis JimenezChloride [Moles/Vol]109 mmol/LCritically uour76-345Wqr [facility] CenterComment on above:Performed By: #### MONO #### [facility] [address] [address] [address] Ibis JimenezCO2 [Moles/Vol]25.7 mmol/EQkqcvw76.0-32.0The [facility] Comment on above:Performed By: #### MONO #### [facility] [address] [place] [address] Dr. Ibis JimenezCreatinine [Mass/Vol]0.82 mg/dLNormal0.55-1.02The [facility] CenterComment on above:Performed By: #### MONO #### [facility] [address] [place] [address] Dr. Ibis RojasGFR-AF TRINIDADIAN>60Normal>=60The [facility] CenterComment on above:Performed By: #### MONO #### [facility] [address] [address] [address] Ibis RojasGFR-NON AF TRINIDADIAN>60Normal>=60The [facility] CenterComment on above:Performed By: #### MONO #### [facility] [address] [address] [address] Ibis JimenezGlucose [Mass/Vol]95 mg/jHOetxlr15-263Cia [facility] Comment on above:Performed By: #### MONO #### [facility] [address] [address] [address] Ibis JimenezPotassium [Moles/Vol]3.8 mmol/LNormal3.5-5.1The [facility] Comment on above:Performed By: #### MONO #### [facility] [address] [address] [address] Ibis JimenezSodium [Moles/Vol]144 mmol/JNhuugb241-046Ijn [facility] Comment on above:Performed By: #### MONO #### [facility] [address] [address] [address] Ibis JimenezUrea nitrogen [Mass/Vol]16.0 mg/dLNormal7.0-18.0Cherrington HospitalComment on above:Performed By: #### MONO #### [facility] [address] [place] [address] Dr. Ibis JimenezUrea nitrogen/Creatinine [Mass ratio]19.5 mg/mgNoalThe [facility] CenterComment on above:Performed By: #### MONO #### [facility] [address] [place] [address] Dr. Ibis JimenezACETAMINOPHENon 60-83-7133Stopahxvpowse [Mass/Vol]ug/mLCritically low10.0-30.0Cherrington HospitalComment on above:Performed By: #### ACET, SALYC #### [facility] [address] [place] [address] Dr. Ibis JimenezDRUG SCREEN RAPID (URINE)on 19-18-4662KGEQzstuqakYknncdAMFKTBHH The [facility] CenterComment on above:Performed By: #### MONO #### [facility] [address] [place] [address] Dr. Ibis JimenezBARPositiveAbnormalNEGATIVECherrington HospitalComment on above: Performed By: #### MONO #### [facility] [address] [place] [address] Dr. Ibis JimenezBUPNegativeNormalNEGATIVEThe [facility] CenterComment on above: Performed By: #### MONO #### [facility] [address] [place] [address] Dr. Ibis JimenezBZOPositiveAbnormalNEGATIVEThe [facility] CenterComment on above: Performed By: #### MONO #### [facility] [address] [place] [address] Dr. Ibis DanielCNegativeNormalNEGATIVECherrington HospitalComment on above: Performed By: #### MONO #### [facility] [address] [place] [address] Dr. Ibis YanFlower HospitalComment on above: Result Comment: AMP (Amphetamine): 500ng/mL, BAR (Barbituates): 200 ng/mL, BZO (Benzodiazepines): 150 ng/mL, BUP (Buprenorphine): 10 ng/mL, SEMAJ (Cocaine): 150 ng/mL, mAMP (Methamphetamine): 500 ng/mL, MTD (Methadone): 200 ng/mL, OPI (Opiates): 100 ng/mL, OXY (Oxycodone): 100 ng/mL, PCP (Phencyclidine): 25 ng/mL, PPX (Propoxyphene): 300 ng/mL, THC (Cannabinoids): 50 ng/mL, TCA (Trycyclic Antidepressants): 300 ng/mLPerformed By: #### MONO #### [facility] [address] [place] [address] Dr. Ibis JimenezDRUG CUT HEADERDRUG CLASS TEST SYSTEM CUT-OFF CONCENTRATIONS ARE FOLLOWS:NormalThe [facility] CenterComselect [facility] on above:Performed By: #### MONO #### [facility] [address] [place] [address] Dr. Ibis JimenezmAMPNegativeNormalNEGATIVECherrington HospitalComselect specialty hospital[facility] on above: Performed By: #### MONO #### [facility] [address] [place] [address] Dr. Ibis JimenezMTDNegativeNormalNEGATIVECherrington HospitalComselect specialty [facility] on above: Performed By: #### MONO #### [facility] [address] [place] [address] Dr. Ibis SenIPositiveAbnormalNEGATIVECherrington HospitalComselect specialty hospital[facility] on above: Performed By: #### MONO #### [facility] [address] [place] [address] Dr. Ibis JimenezOXYNegativeNormalNEGATIVEPremier Health Upper Valley Medical Centerment on above: Performed By: #### MONO #### [facility] [address] [place] [address] Dr. Ibis JimenezPCPNegativeNormalNEGATIVECherrington HospitalComselect specialty hospital[facility] on above: Performed By: #### MONO #### [facility] [address] [place] [address] Dr. Ibis JimenezPPXNegativeNormalNEGATIVECherrington HospitalComselect specialty hospital[facility] on above: Performed By: #### MONO #### [facility] [address] [place] [address] Dr. Ibis JimenezTCANegativeNormalNEGATIVECherrington HospitalComselect specialty hospital[facility] on above: Performed By: #### MONO #### [facility] [address] [place] [address] Dr. Ibis JimenezTHCPositiveAbnormalNEGATIVEMcKitrick Hospital on above: Performed By: #### MONO #### [facility] [address] [place] [address] Dr. Ibis Drake URINE PROFILEon 73-43-4847Vtcikqabd Ql (U)NegativeNormal NEGATIVECherrington HospitalComselect specialty hospital-[facility] on above:Performed By: #### MONO #### [facility] [address] [place] [address] Dr. Ibis Sage (U)CLEARNormalCLEARCherrington HospitalComselect specialty hospital-[facility] on above: Performed By: #### MONO #### [facility] [address] [place] [address] Dr. Ibis Rivera (U)YELLOWNormalYELLOWCherrington HospitalComselect specialty hospital-[facility] on above: Performed By: #### MONO #### [facility] [address] [place] [address] Dr. Ibis Chang micrscopic examination will be performed if indicated. NormalCherrington HospitalComselect specialty hospital-[facility] on above:Performed By: #### MONO #### [facility] [address] [place] [address] Dr. Ibis Kerrose Ql (U)NegativeNormalNEGATIVECherrington HospitalComselect specialty hospital[facility] on above:Performed By: #### MONO #### [facility] [address] [place] [address] Dr. Ibis JimenezHemoglobin Ql (U)TRACE-INTACTAbnormalNEGATIVECherrington HospitalComment on above:Performed By: #### MONO #### [facility] [address] [place] [address] Dr. Ibis JimenezKetones Ql (U)NegativeNormalNEGATIVEOhiohealth Mansfield Hospital HospitalComment on above:Performed By: #### MONO #### [facility] [address] [place] [address] Dr. Ibis JimenezLEUKOCYTESNegativeNormalNEGATIVECherrington HospitalComselect specialty hospital[facility] on above:Performed By: #### MONO #### [facility] [address] [place] [address] Dr. Ibis JimenezNitrite Ql (U)NegativeNormalNEGATIVECherrington HospitalComment on above:Performed By: #### MONO #### [facility] [address] [place] [address] Dr. Ibis JimenezpH (U)6.0 [pH]Normal5-9Cherrington HospitalComselect specialty hospital-[facility] on above: Performed By: #### MONO #### [facility] [address] [place] [address] Dr. Ibis JimenezProtein (U) [Mass/Vol]30 mg/dLAbnormalNEGATIVE/ TRACEThe [facility] CenterComment on above:Performed By: #### MONO #### [facility] [address] [place] [address] Dr. Ibis JimenezSPEC GRAVITY1.839Mbebvb3.005-<=1.025The [facility] CenterComselect [facility] on above:Performed By: #### MONO #### [facility] [address] [place] [address] Dr. Ibis Curtis MICRO INDINDICATEDNormalThe [facility] CenterComment on above: Performed By: #### MONO #### [facility] [address] [place] [address] Dr. Ibis JimenezUrobilinogen Qn (U)0.2 {Dinorah'U}/dLNormal0.2 - 1.0The [facility] CenterComment on above:Performed By: #### MONO #### [facility] [address] [place] [address] Dr. Ibis McdanielANOL (BLD ALC)on 11-82-0901PED NOTENOTE: 80 mg/dl is the legal limit for a blood alcohol levelNoProMedica Memorial HospitalComment on above: Performed By: #### AMM #### [facility] [address] [place] [address] Dr. Ibis Mcdanielanol [Mass/Vol]mg/dLNoProMedica Memorial HospitalComment on above:Performed By: #### AMM #### [facility] [address] [place] [address] Dr. Ibis JimenezPOINT OF CARE GLUCOSEon 93-66-3714Cwokdfw [Mass/Vol]88 mg/dL Bzlwdn95-981Nns [facility] CenterComment on above:Performed By: #### CVDTBH #### [facility] [address] [place] [address] Dr. Ibis JimenezPREGNANCY URon 48-65-1063WTVMWWKJK, QUALNegativeNormalNEGATIVEThe [facility] CenterComment on above:Performed By: #### MONO #### [facility] [address] [place] [address] Dr. Ibis JimenezPROF CHEM 8 (BAS METB)on 47-65-8014Nxbtq gap [Moles/Vol]12.6 mmol/LNormalThe [facility] CenterComment on above:Performed By: #### AMM #### [facility] [address] [place] [address] Dr. Ibis JimenezCalcium [Mass/Vol]8.4 mg/dLCritically low8.5-10.1The [facility] CenterComment on above:Performed By: #### AMM #### [facility] [address] [place] [address] Dr. Ibis JimenezChloride [Moles/Vol]107 mmol/OHkgezn64-836Svc [facility] Comment on above:Performed By: #### AMM #### [facility] [address] [address] [address] Ibis JimenezCO2 [Moles/Vol]22.5 mmol/XXdezqb02.0-32.0The [facility] Comment on above:Performed By: #### AMM #### [facility] [address] [address] [address] Ibis JimenezCreatinine [Mass/Vol]0.82 mg/dLNormal0.55-1.02The [facility] CenterComment on above:Performed By: #### AMM #### [facility] [address] [address] [address] Ibis RojasGFR-AF TRINIDADIAN>60Normal>=60The [facility] CenterComment on above:Performed By: #### AMM #### [facility] [address] [place] [address] Dr. Ibis RojasGFR-NON AF TRINIDADIAN>60Normal>=60The [facility] CenterComment on above:Performed By: #### AMM #### [facility] [address] [address] [address] Ibis JimenezGlucose [Mass/Vol]87 mg/wGUfpxpf75-788OvhCherrington Hospital Comment on above:Performed By: #### AMM #### [facility] [address] [address] [address] Ibis JimenezPotassium [Moles/Vol]4.1 mmol/LNormal3.5-5.1The [facility] Comment on above:Performed By: #### AMM #### [facility] [address] [address] [address] Ibis JimenezSodium [Moles/Vol]138 mmol/TRiymap001-652Cvz [facility] Comment on above:Performed By: #### AMM #### [facility] [address] [address] [address] Ibis JimenezUrea nitrogen [Mass/Vol]22.0 mg/dLCritically high7.0-18.0The [facility] CenterComment on above:Performed By: #### AMM #### [facility] [address] [address] [address] Ibis Lama nitrogen/Creatinine [Mass ratio]26.8 mg/mgNoProMedica Memorial HospitalComment on above:Performed By: #### AMM #### [facility] [address] [place] [address] Dr. Ibis JimenezSALICYLATEon 12-47-8449FEYDZFNFYR<2.8Normal<=19.9The [facility] CenterComment on above:Performed By: #### ACET, SALYC #### [facility] [address] [place] [address] Dr. Ibis Morris MICROSCOPIC ONLYon 36-97-1259GFEKLWNNNBST SEENNormalNONE SEENCherrington HospitalComselect specialty hospital-[facility] on above:Performed By: #### MONO #### [facility] [address] [place] [address] Dr. Ibis JimenezBactanthony identified Cx Nom (U)NOT INDICATEDNoProMedica Memorial HospitalComment on above:Performed By: #### MONO #### [facility] [address] [place] [address] Dr. Ibis JimenezCASTSEENAbnormalNONE SEENMcKitrick Hospital on above: Performed By: #### MONO #### [facility] [address] [place] [address] Dr. Ibis JimenezCrystals LM Nom (Urine sed)NONE SEENNormalNONE SEENCherrington HospitalComselect specialty hospital-[facility] on above:Performed By: #### MONO #### [facility] [address] [place] [address] Dr. Baumann ChangEpithelial cells LM Ql (Urine sed)MODERATEAbnormalNONE SEEN /RARE The [facility] CenterComselect specialty hospital-[facility] on above:Performed By: #### MONO #### [facility] [address] [place] [address] Dr. Ibis GargALINE CASTFEWLima City HospitalComment on above: Performed By: #### MONO #### [facility] [address] [place] [address] Dr. Ibis McculloughUSRM SEENNormalNONE SEENCherrington HospitalComment on above:Performed By: #### MONO #### [facility] [address] [place] [address] Dr. Ibis JimenezOlyxqWHR7-1Wgmtemlx7-7Hdh [facility] CenterComment on above:Performed By: #### MONO #### [facility] [address] [place] [address] Dr. Ibis JimenezWBCRM SEENNormalNONE SEENCherrington HospitalComment on above: Performed By: #### MONO #### [facility] [address] [place] [address] Dr. Ibis Alexis AUTO DIFFon 66-32-9164PLLT #0.0 103/ulNormal0.0-0.1The [facility] CenterComment on above:Performed By: #### CVDTBH #### [facility] [address] [place] [address] Dr. Ibis JimenezBasophils/100 WBC (Bld)0.3 %Normal0.2-2.0The [facility] on above:Performed By: #### CVDTBH #### [facility] [address] [place] [address] Dr. Ibis Acevedo #0.0 103/ulNormal0.0-0.7The [facility] CenterComment on above: Performed By: #### CVDTBH #### [facility] [address] [place] [address] Dr. Ibis Rojasosinophils/100 WBC (Bld)0.1 %Critically low0.9-7.0The [facility] CenterComment on above:Performed By: #### CVDTBH #### [facility] [address] [place] [address] Dr. Ibis Rojasrythrocyte distribution width (RBC) [Ratio]13.2 %Niztnh57.0-15.0 The [facility] CenterComment on above:Performed By: #### CVDTBH #### [facility] [address] [place] [address] Dr. Ibis JimenezHematocrit (Bld) [Volume fraction]38.5 %Sllawd05.0-48.0The [facility] CenterComment on above:Performed By: #### CVDTBH #### [facility] [address] [place] [address] Dr. Ibis JimenezHemoglobin (Bld) [Mass/Vol]12.4 g/yKAbcyhg00.0-16.0The [facility] CenterComment on above:Performed By: #### CVDTBH #### [facility] [address] [place] [address] Dr. Ibis Soto #0.20 10e3/ulCritically high0.00-0.03The [facility] Comment on above:Performed By: #### CVDTBH #### [facility] [address] [place] [address] Dr. Ibis Soto %1.8 %Critically high0.0-0.5The [facility] CenterComment on above:Performed By: #### CVDTBH #### [facility] [address] [place] [address] Dr. Ibis Monsalve #0.5 103/ulCritically low1.2-3.8The [facility] Comment on above:Performed By: #### CVDTBH #### [facility] [address] [place] [address] Dr. Ibis Vuongmphocytes/100 WBC (Bld)4.6 %Critically low20.5-60.0Cherrington HospitalComment on above:Performed By: #### CVDTBH #### [facility] [address] [place] [address] Dr. Ibis JimenezMANUAL DIFF REQNONormalThe [facility] CenterComment on above: Performed By: #### CVDTBH #### [facility] [address] [place] [address] Dr. Ibis Irby (RBC) [Entitic mass]28.2 tuYjrjfk81.7-34.0The [facility] CenterComment on above:Performed By: #### CVDTBH #### [facility] [address] [place] [address] Dr. Ibis FrankHC (RBC) [Mass/Vol]32.2 g/bUPgscxj54.9-35.2The [facility] CenterComment on above:Performed By: #### CVDTBH #### [facility] [address] [place] [address] Dr. Ibis Frank (RBC) [Entitic vol]87.5 tBTluemr38.0-99.0The [facility] HospitalComment on above:Performed By: #### CVDTBH #### [facility] [address] [place] [address] Dr. Ibis Magallanes #0.1 103/ulCritically low0.3-0.8The [facility] CenterComment on above:Performed By: #### CVDTBH #### [facility] [address] [place] [address] Dr. Ibis Barbaocytes/100 WBC (Bld)1.3 %Critically low1.7-12.0The [facility] CenterComment on above:Performed By: #### CVDTBH #### [facility] [address] [place] [address] Dr. Ibis Schultz #10.1 103/ulCritically high1.4-6.5The [facility] Comment on above:Performed By: #### CVDTBH #### [facility] [address] [place] [address] Dr. Ibis Hiutrophils/100 WBC (Bld)91.9 %Critically high43.0-75.0The [facility] CenterComment on above:Performed By: #### CVDTBH #### [facility] [address] [place] [address] Dr. Ibis Olsenlet mean volume (Bld) [Entitic vol]9.1 fLCritically low 9.5-13.5The [facility] CenterComment on above:Performed By: #### CVDTBH #### [facility] [address] [place] [address] Dr. Ibis EricksonT240 103/fqOncdou397-567Gxh [facility] CenterComment on above: Performed By: #### CVDTBH #### [facility] [address] [place] [address] Dr. Ibis JimenezRBC4.40 106/ulNormal4.20-5.40The [facility] CenterComment on above:Performed By: #### CVDTBH #### [facility] [address] [place] [address] Dr. Ibis JimenezWBC11.0 103/ulNormal4.0-11.0The [facility] CenterComment on above:Performed By: #### CVDTBH #### [facility] [address] [place] [address] Dr. Ibis Charles 14(COMP METB)on 03-55-8445Jhfzxfm [Mass/Vol]3.3 g/dL Critically low3.4-5.0The [facility] CenterComment on above:Performed By: #### BMP #### [facility] [address] [place] [address] Dr. Ibis JimenezAlbumin/Globulin [Mass ratio]0.9 {ratio}NormalThe [facility] CenterComment on above:Performed By: #### BMP #### [facility] [address] [place] [address] Dr. Ibis Ramos [Catalytic activity/Vol]63 U/RDfhsyo55-775Nsc [facility] CenterComment on above:Performed By: #### BMP #### [facility] [address] [place] [address] Dr. Ibis Underwood [Catalytic activity/Vol]32 U/XSfavnm82-38Xrp [facility] CenterComment on above:Performed By: #### BMP #### [facility] [address] [place] [address] Dr. Ibis Bal gap [Moles/Vol]12.9 mmol/LNormalThe [facility] on above:Performed By: #### BMP #### [facility] [address] [place] [address] Dr. Ibis Paris [Catalytic activity/Vol]14 U/LCritically zfl32-96Cdj [facility] CenterComment on above:Performed By: #### BMP #### [facility] [address] [place] [address] Dr. Ibis JimenezBilirubin [Mass/Vol]0.2 mg/dLNormal0.2-1.0[facility] Comment on above:Performed By: #### BMP #### [facility] [address] [place] [address] Dr. Ibis JimenezCalcium [Mass/Vol]8.5 mg/dLNormal8.5-10.1[facility] Comment on above:Performed By: #### BMP #### [facility] [address] [place] [address] Dr. Ibis JimenezChloride [Moles/Vol]106 mmol/QPzhjta74-292GehCherrington Hospital Comment on above:Performed By: #### BMP #### [facility] [address] [place] [address] Dr. Ibis JimenezCO2 [Moles/Vol]26.6 mmol/AJplnri62.0-32.0[facility] Comment on above:Performed By: #### BMP #### [facility] [address] [place] [address] Dr. Ibis JimenezCreatinine [Mass/Vol]0.89 mg/dLNormal0.55-1.02The [facility] CenterComment on above:Performed By: #### BMP #### [facility] [address] [place] [address] Dr. Ibis RojasGFR-AF TRINIDADIAN>60Normal>=60The [facility] CenterComment on above:Performed By: #### BMP #### [facility] [address] [place] [address] Dr. Ibis RojasGFR-NON AF TRINIDADIAN>60Normal>=60The [facility] CenterComment on above:Performed By: #### BMP #### [facility] [address] [place] [address] Dr. Ibis JimenezGlobulin (S) [Mass/Vol]3.6 g/dLNormalThe [facility] Heath HospitalComment on above:Performed By: #### BMP #### [facility] [address] [address] [address] Ibis JimenezGlucose [Mass/Vol]134 mg/dLCritically gskx36-434VojCherrington HospitalComment on above:Performed By: #### BMP #### [facility] [address] [address] [address] Ibis JimenezPotassium [Moles/Vol]4.5 mmol/LNormal3.5-5.1[facility] Comment on above:Performed By: #### BMP #### [facility] [address] [address] [address] Ibis JimenezProtein [Mass/Vol]6.9 g/dLNormal6.4-8.2[facility] Comment on above:Performed By: #### BMP #### [facility] [address] [address] [address] Ibis JimenezSodium [Moles/Vol]141 mmol/XOhciom302-673TxwCherrington Hospital Comment on above:Performed By: #### BMP #### [facility] [address] [address] [address] Ibis JimenezUrea nitrogen [Mass/Vol]15.0 mg/dLNormal7.0-18.0[facility] HospitalComment on above:Performed By: #### BMP #### [facility] [address] [address] [address] Ibis JimenezUrea nitrogen/Creatinine [Mass ratio]16.9 mg/mgNormalThBarberton Citizens HospitalComment on above:Performed By: #### BMP #### [facility] [address] [address] [address] Ibis JimenzeCT HEAD WO CONon 25-01-7480PM HEAD WO CONEXAMINATION: CT HEAD WO CON, [...] Electronically authenticated by: NICHOLAS MARCUS Date: 2022-05-23 19:25NoProMedica Memorial HospitalCT LSPINE WO CONon [id number] LSPINE WO CONCT CERVICAL SPINE WITHOUT CONTRAST. [...] with vacuum phenomenon. Electronically authenticated by: SINDY [facility] Date: 2022-05-23 19:41NoProMedica Memorial HospitalCT HEAD WO CONon [id number] HEAD WO CONStudy: CT HEAD WO CON [...] Electronically authenticated by: ROBIN IRBY Date: 2022-03-31 22:40NormThe University of Toledo Medical CenterCovid-19 PCR (CVDTBH)on 17-78-4675PKDT-CoV-2 (COVID-19) RNA SAURABH+probe Ql (Unsp spec)Not detectedNormalNOT DETECTEDThe [facility] Comment on above:Result Comment: When [...] for this test is supported by the [place] of Health and Human Service's declaration that [...] longer be used).Performed By: #### CVDTBH #### [facility] [address] [place] [address] [address] [address] Ibis Drake URINE PROFILEon 12-40-7955Xnmqaufhb Ql (U)NegativeNormal NEGATIVEThe [facility] CenterComment on above:Performed By: #### ACET, SALYC #### [facility] [address] [place] [address] Dr. Ibis Pratherarity (U)CLEARNormalCLEARCherrington HospitalComment on above: Performed By: #### ACET, SALYC #### [facility] [address] [place] [address] Dr. Ibis Rivera (U)YELLOWNormalYELLOWCherrington HospitalComment on above: Performed By: #### ACET, SALYC #### [facility] [address] [address] [address] Ibis Chang micrscopic examination will be performed if indicated. NormalThe [facility] CenterComment on above:Performed By: #### ACET, SALYC #### [facility] [address] [place] [address] Dr. Ibis JimenezGlucose Ql (U)NegativeNormalNEGATIVECherrington HospitalComment on above:Performed By: #### ACET, SALYC #### [facility] [address] [place] [address] Dr. Ibis JimenezHemoglobin Ql (U)SMALLAbnormalNEGATIVECommunity Memorial Hospital on above:Performed By: #### ACET, SALYC #### [facility] [address] [place] [address] Dr. Ibis JimenezKetones Ql (U)NegativeNormalNEGATIVECherrington HospitalComment on above:Performed By: #### ACET, SALYC #### [facility] [address] [place] [address] Dr. Ibis JimenezLEUKOCYTESNegativeNormalNEGATIVECherrington HospitalComselect specialty hospital-[facility]ontiac on above:Performed By: #### ACET, SALYC #### [facility] [address] [place] [address] Dr. Ibis JimenezNitrite Ql (U)NegativeNormalNEGATIVECherrington HospitalComment on above:Performed By: #### ACET, SALYC #### [facility] [address] [place] [address] Dr. Ibis JimenezpH (U)5.5 [pH]Normal5-9The [facility] Heath HospitalComment on above: Performed By: #### ACET, SALYC #### [facility] [address] [place] [address] Dr. Ibis JimenezSPEC GRAVITY>=1.745Nbdlmivd8.005-<=1.025The [facility] Comment on above:Performed By: #### ACET, SALYC #### [facility] [address] [place] [address] Dr. Ibis Quintanilla PROTEINNegativeNormalNEGATIVE/ TRACEThe [facility] Comment on above:Performed By: #### ACET, SALYC #### [facility] [address] [place] [address] Dr. Ibis Curtis MICRO INDINDICATEDLima City HospitalComment on above: Performed By: #### ACET, SALYC #### [facility] [address] [place] [address] Dr. Ibis Lorenzbilinogen Qn (U)0.2 {Dinorah'U}/dLNormal0.2 - 1.0C[facility]rington HospitalComment on above:Performed By: #### ACET, SALYC #### [facility] [address] [place] [address] Dr. Ibis Garcia AND B AGon 40-71-6442WKRMVGNROIIKCPeoples Hospital on above:Result Comment: Negative for Flu A protein angiten. Infection due to Flu A cannot be ruled out. FluA angiten in the sample may be below the detection limit of the test.Performed By: #### AMM #### [facility] [address] [place] [address] Dr. Ibis RuizUBNEGHSEE [facility] Charles HospitalComselect specialty hospital-[facility]ont[facility] on above: Result Comment: Negative for Flu B protein antigen. Infection due to Flu B cannot be ruled out. FluB antigen in the sample may be below the detection limit of the test.Performed By: #### AMM #### [facility] [address] [place] [address] Dr. Ibis Garcia AGNegativeNormalNEGATIVE SEE COMMENTThe White Heath HospitalComment on above:Performed By: #### AMM #### [facility] [address] [address] [address] Ibis Lagos AGNegativeNormalNEGATIVE SEE COMMENTThe [facility] CenterComselect specialty hospital-[facility] on above:Performed By: #### AMM #### [facility] [address] [address] [address] Ibis JimenezLACTATE/LACTIC ACIDon 25-38-0684Gtqhpsr [Moles/Vol]1.9 mmol/L Normal0.4-1.9The [facility] Medical Centerment on above:Performed By: #### LACT #### [facility] [address] [place] [address] Dr. Ibis Morris MICROSCOPIC ONLYon 45-62-4143VEVQXIPFBVJTEUzhzripoOBUA SEEN The [facility] CenterComselect specialty hospital-[facility] on above:Performed By: #### ACET, SALYC #### [facility] [address] [place] [address] Dr. Ibis Pettit identified Cx Nom (U)NOT INDICATEDNoProMedica Memorial HospitalComselect specialty hospital-[facility] on above:Performed By: #### ACET, SALYC #### [facility] [address] [place] [address] Dr. Ibis Baron SEENNormalNONE SEENMcKitrick Hospital on above:Performed By: #### ACET, SALYC #### [facility] [address] [place] [address] Dr. Ibis Oviedo LM Nom (Urine sed)NONE SEENNormalNONE SEENMcKitrick Hospital on above:Performed By: #### ACET, SALYC #### [facility] [address] [place] [address] Dr. Ibis Davisthelial cells LM Ql (Urine sed)RARENormalNONE SEEN /RAREThe [facility] on above:Performed By: #### ACET, SALYC #### [facility] [address] [place] [address] Dr. Ibis GallegosCOUSTRACEAbnormalNONE SEENThe Alejandra HospitalComment on above:Performed By: #### ACET, SALYC #### [facility] [address] [place] [address] Dr. Ibis BurrHhrmpQZA8-2Dgsmsj3-4Nno [facility] Medical Centerment on above:Performed By: #### ACET, SALYC #### [facility] [address] [place] [address] Dr. Ibis JimenezWBCNONE SEENNormalNONE SEENThe [facility] CenterComment on above: Performed By: #### ACET, SALYC #### [facility] [address] [place] [address] Dr. Ibis JimenezAMMONIAon 74-59-4193Kpdvqzp (P) [Moles/Vol]31 umol/RCfpttk86-67 [facility] on above:Performed By: #### AMM #### [facility] [address] [place] [address] Dr. Ibis Alexis AUTO DIFFon 74-23-3516WIAH #0.0 103/ulNormal0.0-0.1The [facility] CenterComment on above:Performed By: #### AMM #### [facility] [address] [place] [address] Dr. Ibis JimenezBasophils/100 WBC (Bld)0.4 %Normal0.2-2.0[facility] Comment on above:Performed By: #### AMM #### [facility] [address] [place] [address] Dr. Ibis Acevedo #0.5 103/ulNormal0.0-0.7The [facility] on above: Performed By: #### AMM #### [facility] [address] [place] [address] Dr. Ibis Rojasosinophils/100 WBC (Bld)6.4 %Normal0.9-7.0The [facility] Comment on above:Performed By: #### AMM #### [facility] [address] [place] [address] Dr. Ibis Rojasrythrocyte distribution width (RBC) [Ratio]12.8 %Vjqsmd51.0-15.0 The [facility] CenterComment on above:Performed By: #### AMM #### [facility] [address] [place] [address] Dr. Ibis JimenezHematocrit (Bld) [Volume fraction]36.6 %Kvkdta05.0-48.0The [facility] CenterComment on above:Performed By: #### AMM #### [facility] [address] [place] [address] Dr. Ibis JimenezHemoglobin (Bld) [Mass/Vol]12.5 g/wYUpvozw40.0-16.0The [facility] CenterComment on above:Performed By: #### AMM #### [facility] [address] [place] [address] Dr. Ibis Soto #0.02 10e3/ulNormal0.00-0.03The [facility] CenterComment on above:Performed By: #### AMM #### [facility] [address] [place] [address] Dr. Ibis Soto %0.3 %Normal0.0-0.5The [facility] CenterComment on above: Performed By: #### AMM #### [facility] [address] [place] [address] Dr. Ibis Monsalve #2.0 103/ulNormal1.2-3.8The [facility] CenterComment on above:Performed By: #### AMM #### [facility] [address] [place] [address] Dr. Ibis Brennerhocytes/100 WBC (Bld)25.0 %Vjcepn84.5-60.0The [facility] CenterComment on above:Performed By: #### AMM #### [facility] [address] [place] [address] Dr. Ibis NewtonUAL DIFF REQNONormalThe [facility] CenterComment on above: Performed By: #### AMM #### [facility] [address] [place] [address] Dr. Ibis Irby (RBC) [Entitic mass]29.5 mcNlstgn53.7-34.0The [facility] CenterComment on above:Performed By: #### AMM #### [facility] [address] [place] [address] Dr. Ibis Frank (RBC) [Mass/Vol]34.2 g/kRSaupeq10.9-35.2The [facility] CenterComment on above:Performed By: #### AMM #### [facility] [address] [place] [address] Dr. Ibis FrankV (RBC) [Entitic vol]86.3 bTZqjpqp77.0-99.0The [facility] CenterComment on above:Performed By: #### AMM #### [facility] [address] [place] [address] Dr. Ibis Magallanes #0.4 103/ulNormal0.3-0.8The [facility] CenterComment on above:Performed By: #### AMM #### [facility] [address] [place] [address] Dr. Ibis Barbaocytes/100 WBC (Bld)5.6 %Normal1.7-12.0The [facility] Comment on above:Performed By: #### AMM #### [facility] [address] [place] [address] Dr. Ibis Schultz #4.9 103/ulNormal1.4-6.5The [facility] CenterComment on above:Performed By: #### AMM #### [facility] [address] [place] [address] Dr. Ibis Hiutrophils/100 WBC (Bld)62.3 %Zessbl20.0-75.0The [facility] CenterComment on above:Performed By: #### AMM #### [facility] [address] [place] [address] Dr. Ibis Olsenlet mean volume (Bld) [Entitic vol]9.5 fLNormal9.5-13.5The [facility] HospitalComment on above:Performed By: #### AMM #### [facility] [address] [place] [address] Dr. Ibis JimenezPLT246 103/yiPyrdfo836-456Fcj [facility] CenterComment on above: Performed By: #### AMM #### [facility] [address] [place] [address] Dr. Ibis JimenezRBC4.24 106/ulNormal4.20-5.40The [facility] CenterComment on above:Performed By: #### AMM #### [facility] [address] [place] [address] Dr. Ibis JiemnezWBC7.8 103/ulNormal4.0-11.0The [facility] CenterComment on above: Performed By: #### AMM #### [facility] [address] [place] [address] Dr. Ibis Barrios BLOODon 42-50-2677Plnhhpclbkc examination of blood, cultureCulture Observations: NO GROWTH AT 5 DAYS.NormalThe [facility] CenterComment on above:Performed By: #### BLDCX2 #### [facility] [address] [place] [address] Dr. Ibis JimenezMicroscopic examination of blood, cultureCulture Observations: NO GROWTH AT 5 DAYS.NormalThe [facility] CenterComment on above:Performed By: #### BMP #### [facility] [address] [place] [address] Dr. Ibis JimenezLACTATE/LACTIC ACIDon 31-15-3483Vrwetvl [Moles/Vol]2.8 mmol/L Critically high0.4-1.9The [facility] CenterComment on above:Performed By: #### CVDTBH #### [facility] [address] [place] [address] Dr. Ibis Charles 14(COMP METB)on 85-24-0064Gtmlvxp [Mass/Vol]3.4 g/dLNormal 3.4-5.0The [facility] CenterComment on above:Performed By: #### BMP #### [facility] [address] [place] [address] Dr. Ibis JimenezAlbumin/Globulin [Mass ratio]1.2 {ratio}NormalThe [facility] CenterComment on above:Performed By: #### BMP #### [facility] [address] [place] [address] Dr. Ibis EspinozaP [Catalytic activity/Vol]85 U/LRqhyrm23-718Rys [facility] CenterComment on above:Performed By: #### BMP #### [facility] [address] [place] [address] Dr. Ibis EspinozaT [Catalytic activity/Vol]18 U/RSfcrrc87-37Abi [facility] CenterComment on above:Performed By: #### BMP #### [facility] [address] [place] [address] Dr. Ibis Santoson gap [Moles/Vol]13.2 mmol/LNormalThe [facility] Comment on above:Performed By: #### BMP #### [facility] [address] [place] [address] Dr. Ibis JimenezAST [Catalytic activity/Vol]11 U/LCritically udd74-29Onv [facility] CenterComment on above:Performed By: #### BMP #### [facility] [address] [place] [address] Dr. Ibis JimenezBilirubin [Mass/Vol]0.2 mg/dLNormal0.2-1.0The [facility] Comment on above:Performed By: #### BMP #### [facility] [address] [place] [address] Dr. Ibis JimenezCalcium [Mass/Vol]8.6 mg/dLNormal8.5-10.1The [facility] Comment on above:Performed By: #### BMP #### [facility] [address] [place] [address] Dr. Ibis JimenezChloride [Moles/Vol]105 mmol/TKmhfpk47-261Wcs [facility] Comment on above:Performed By: #### BMP #### [facility] [address] [place] [address] Dr. Ibis JimenezCO2 [Moles/Vol]25.1 mmol/BVzegfm49.0-32.0The [facility] Comment on above:Performed By: #### BMP #### [facility] [address] [place] [address] Dr. Ibis JimenezCreatinine [Mass/Vol]0.80 mg/dLNormal0.55-1.02The [facility] CenterComment on above:Performed By: #### BMP #### [facility] [address] [address] [address] Ibis RojasGFR-AF TRINIDADIAN>60Normal>=60The [facility] CenterComment on above:Performed By: #### BMP #### [facility] [address] [place] [address] Dr. Ibis RojasGFR-NON AF TRINIDADIAN>60Normal>=60The [facility] CenterComment on above:Performed By: #### BMP #### [facility] [address] [place] [address] Dr. Ibis JimenezGlobulin (S) [Mass/Vol]2.9 g/dLNormalThe [facility] CenterComment on above:Performed By: #### BMP #### [facility] [address] [place] [address] Dr. Ibis JimenezGlucose [Mass/Vol]99 mg/lGDxlnsu52-344VqmC[facility] Hospital Comment on above:Performed By: #### BMP #### [facility] [address] [place] [address] Dr. Ibis JimenezPotassium [Moles/Vol]3.3 mmol/LCritically low3.5-5.1The [facility] CenterComment on above:Performed By: #### BMP #### [facility] [address] [place] [address] Dr. Ibis JimenezProtein [Mass/Vol]6.3 g/dLCritically low6.4-8.2The [facility] CenterComment on above:Performed By: #### BMP #### [facility] [address] [place] [address] Dr. Ibis JimenezSodium [Moles/Vol]140 mmol/ZEqpoqn056-037MuiCherrington Hospital Comment on above:Performed By: #### BMP #### [facility] [address] [place] [address] Dr. Ibis Lama nitrogen [Mass/Vol]10.0 mg/dLNormal7.0-18.0[facility] HospitalComment on above:Performed By: #### BMP #### [facility] [address] [place] [address] Dr. Ibis Lama nitrogen/Creatinine [Mass ratio]12.5 mg/mgNormalThe [facility] CenterComment on above:Performed By: #### BMP #### [facility] [address] [place] [address] Dr. Ibis Alexis AUTO DIFFon 75-88-5223LKSN #0.0 103/ulNormal0.0-0.1The [facility] CenterComment on above:Performed By: #### AMM #### [facility] [address] [place] [address] Dr. Ibis JimenezBasophils/100 WBC (Bld)0.3 %Normal0.2-2.0[facility] Comment on above:Performed By: #### AMM #### [facility] [address] [place] [address] Dr. Ibis Acevedo #0.2 103/ulNormal0.0-0.7The [facility] CenterComment on above: Performed By: #### AMM #### [facility] [address] [place] [address] Dr. Ibis Rojasosinophils/100 WBC (Bld)2.7 %Normal0.9-7.0The [facility] Comment on above:Performed By: #### AMM #### [facility] [address] [place] [address] Dr. Ibis Rojasrythrocyte distribution width (RBC) [Ratio]13.2 %Yibbxr44.0-15.0 [facility] HospitalComment on above:Performed By: #### AMM #### [facility] [address] [place] [address] Dr. Ibis JimenezHematocrit (Bld) [Volume fraction]35.7 %Critically low36.0-48.0 The [facility] CenterComment on above:Performed By: #### AMM #### [facility] [address] [address] [address] Ibis JimenezHemoglobin (Bld) [Mass/Vol]12.2 g/vBOcfydc55.0-16.0The [facility] CenterComment on above:Performed By: #### AMM #### [facility] [address] [address] [address] Ibis JimenezIG #0.04 10e3/ulCritically high0.00-0.03The [facility] Comment on above:Performed By: #### AMM #### [facility] [address] [place] [address] Dr. Ibis Soto %0.5 %Normal0.0-0.5The [facility] CenterComment on above: Performed By: #### AMM #### [facility] [address] [place] [address] Dr. Ibis Monsalve #2.1 103/ulNormal1.2-3.8The [facility] CenterComment on above:Performed By: #### AMM #### [facility] [address] [place] [address] Dr. Ibis Vuongmphocytes/100 WBC (Bld)27.3 %Ywcfef11.5-60.0The [facility] CenterComment on above:Performed By: #### AMM #### [facility] [address] [address] [address] Ibis JimenezMANUAL DIFF REQNONormalThe [facility] CenterComment on above: Performed By: #### AMM #### [facility] [address] [address] [address] Ibis Irby (RBC) [Entitic mass]29.0 avZixsfq76.7-34.0The [facility] CenterComment on above:Performed By: #### AMM #### [facility] [address] [address] [address] Ibis FrankHC (RBC) [Mass/Vol]34.2 g/tREgezqg91.9-35.2The [facility] CenterComment on above:Performed By: #### AMM #### [facility] [address] [place] [address] Dr. Ibis FrankV (RBC) [Entitic vol]84.8 gTZcujpv41.0-99.0The [facility] CenterComment on above:Performed By: #### AMM #### [facility] [address] [place] [address] Dr. Ibis Magallanes #0.7 103/ulNormal0.3-0.8The [facility] CenterComment on above:Performed By: #### AMM #### [facility] [address] [place] [address] Dr. Ibis Barbaocytes/100 WBC (Bld)8.7 %Normal1.7-12.0The [facility] Comment on above:Performed By: #### AMM #### [facility] [address] [place] [address] Dr. Ibis Schultz #4.7 103/ulNormal1.4-6.5The [facility] CenterComment on above:Performed By: #### AMM #### [facility] [address] [place] [address] Dr. Ibis Hiutrophils/100 WBC (Bld)60.5 %Dqfhpd14.0-75.0The [facility] CenterComment on above:Performed By: #### AMM #### [facility] [address] [place] [address] Dr. Ibis Olsenlet mean volume (Bld) [Entitic vol]9.6 fLNormal9.5-13.5The [facility] [place] [facility] CenterComment on above:Performed By: #### AMM #### [facility] [place] [facility] [address] [place] [address] Dr. Ibis JimenezPLT212 103/nkPxcvsn070-347Kfd Alejandra HospitalComment on above: Performed By: #### AMM #### [facility] [place] [facility] [address] [place], [place] [address] Dr. Ibis JimenezRBC4.21 106/ulNormal4.20-5.40The [facility] on above:Performed By: #### AMM #### [facility] [place] [facility] [address] [place], [place] [address] Dr. Ibis JimenezWBC7.7 103/ulNormal4.0-11.0The [facility] on above: Performed By: #### AMM #### [facility] [place] [facility] [address] [address] [address] Ibis JimenezCT ABD/PELV W CONon [id number] ABD/PELV W CONEXAM: CT ABD/PELV W CON [...] Electronically authenticated by: TONY DAHL Date: 2022-01-14 20:01[facility] URINE PROFILEon [id number] Ql (U)NegativeNormal NEGATIVECherrington HospitalComment on above:Performed By: #### ACET, SALYC #### [facility] [place] [facility] [address] [place] [address] Dr. Ibis JimenezClarity (U)CLEARNormalCLEARCherrington HospitalComment on above: Performed By: #### ACET, SALYC #### [facility] [place] [facility] [address] [place] [address] Dr. Ibis JimenezColor (U)LT. YELLOWNormalYELLOWCherrington HospitalComment on above:Performed By: #### ACET, SALYC #### [facility] [place] [facility] [address] [address] [address] Ibis Chang micrscopic examination will be performed if indicated. NormalCherrington HospitalComment on above:Performed By: #### ACET, SALYC #### [facility] [place] [facility] [address] [address] [address] Ibis JimenezGlucose Ql (U)NegativeNormalNEGATIVECherrington HospitalComment on above:Performed By: #### ACET, SALYC #### [facility] [place] [facility] [address] [address] [address] Ibis JimenezHemoglobin Ql (U)NegativeNormalNEGATIVECherrington Hospital Comment on above:Performed By: #### ACET, SALYC #### [facility] [place] [facility] [address] [address] [address] Ibis JimenezKetones Ql (U)NegativeNormalNEGATIVECherrington HospitalComment on above:Performed By: #### ACET, SALYC #### [facility] [place] [facility] [address] [address] [address] Ibis JimenezLEUKOCYTESTRACEAbnormalNEGATIVECherrington HospitalComment on above:Performed By: #### ACET, SALYC #### [facility] [place] [facility] [address] [address] [address] Ibis Avalostraldo Ql (U)NegativeNormalNEGATIVEThe [facility] [place] [facility] CenterComment on above:Performed By: #### ACET, SALYC #### [facility] [place] [facility] [address] [address] [address] Ibis JimenezpH (U)5.5 [pH]Normal5-9The [facility] [place] [facility] CenterComment on above: Performed By: #### ACET, SALYC #### [facility] [place] [facility] [address] [address] [address] Ibis JimenezSPEC GRAVITY1.543Prulfh2.005-<=1.025The [facility] [place] [facility] CenterComment on above:Performed By: #### ACET, SALYC #### [facility] [place] [facility] [address] [place] [address] Dr. Ibis Quintanilla PROTEINNegativeNormalNEGATIVE/ TRACEThe [facility] [place] [facility] Comment on above:Performed By: #### ACET, SALYC #### [facility] [place] [facility] [address] [address] [address] Ibis Curtis MICRO INDINDICATEDNormalThe [facility] [place] [facility] CenterComment on above: Performed By: #### ACET, SALYC #### [facility] [place] [facility] [address] [address] [address] Ibis JimenezUrobilinogen Qn (U)0.2 {Dinorah'U}/dLNormal0.2 - 1.0The [facility] [place] [facility] CenterComment on above:Performed By: #### ACET, SALYC #### [facility] [place] [facility] [address] [place] [address] Dr. Ibis JimenezPREGNANCY URon 30-79-3845TUWRVNOOV, QUALNegativeNormalNEGATIVEThe [facility] [place] [facility] CenterComment on above:Performed By: #### ACET, SALYC #### [facility] [place] [facility] [address] [place] [address] Dr. Ibis JimenezPROF CHEM 8 (BAS METB)on 50-84-9667Gmljp gap [Moles/Vol]9.9 mmol/LNormalThe [facility] [place] [facility] CenterComment on above:Performed By: #### BMP #### [facility] [place] [facility] [address] [address] [address] Ibis JimenezCalcium [Mass/Vol]8.6 mg/dLNormal8.5-10.1The [facility] [place] [facility] Comment on above:Performed By: #### BMP #### [facility] [place] [facility] [address] [address] [address] Ibis JimenezChloride [Moles/Vol]105 mmol/JJemhsy91-262Rwu [facility] [place] [facility] Comment on above:Performed By: #### BMP #### [facility] [place] [facility] [address] [address] [address] Ibis JimenezCO2 [Moles/Vol]27.5 mmol/OBlmkew78.0-32.0The [facility] [place] [facility] Comment on above:Performed By: #### BMP #### [facility] [place] [facility] [address] [place] [address] Dr. Ibis JimenezCreatinine [Mass/Vol]0.70 mg/dLNormal0.55-1.02The [facility] [place] [facility] CenterComment on above:Performed By: #### BMP #### [facility] [place] [facility] [address] [place] [address] Dr. Ibis RojasGFR-AF TRINIDADIAN>60Normal>=60The [facility] [place] [facility] CenterComment on above:Performed By: #### BMP #### [facility] [place] [facility] [address] [address] [address] Ibis RojasGFR-NON AF TRINIDADIAN>60Normal>=60The [facility] [place] [facility] CenterComment on above:Performed By: #### BMP #### [facility] [place] [facility] [address] [address] [address] Ibis JimenezGlucose [Mass/Vol]83 mg/nEDrcxaa12-149Stw [facility] [place] [facility] Comment on above:Performed By: #### BMP #### [facility] [place] [facility] [address] [place] [address] Dr. Ibis JimenezPotassium [Moles/Vol]4.4 mmol/LNormal3.5-5.1[facility] Comment on above:Performed By: #### BMP #### [facility] [place] [facility] [address] [address] [address] Ibis Guzmanum [Moles/Vol]138 mmol/BWxlqzk406-374Pdw [facility] [place] [facility] Comment on above:Performed By: #### BMP #### [facility] [place] [facility] [address] [address] [address] Ibis JimenezUrea nitrogen [Mass/Vol]13.0 mg/dLNormal7.0-18.0The [facility] [place] [facility] CenterComment on above:Performed By: #### BMP #### [facility] [place] [facility] [address] [address] [address] Ibis Lama nitrogen/Creatinine [Mass ratio]18.6 mg/mgNoalThe [facility] [place] [facility] CenterComment on above:Performed By: #### BMP #### [facility] [place] [facility] [address] [place] [address] Dr. Ibis Morris MICROSCOPIC ONLYon [id number] SEENNormalNONE SEENCherrington HospitalComment on above:Performed By: #### ACET, SALYC #### [facility] [place] [facility] [address] [address] [address] Ibis Pettit identified Cx Nom (U)NOT INDICATEDNoProMedica Memorial HospitalComment on above:Performed By: #### ACET, SALYC #### [facility] [place] [facility] [address] [place] [address] Dr. Ibis Baron SEENNormalNONE SEENCherrington HospitalComselect specialty hospital-pontiac on above:Performed By: #### ACET, SALYC #### [facility] [place] [facility] [address] [address] [address] Ibis Oviedo LM Nom (Urine sed)NONE SEENNormalNONE SEENCherrington HospitalComselect specialty hospital-pontiac on above:Performed By: #### ACET, SALYC #### [facility] [place] [facility] [address] [address] [address] Baumann ChangEpithelial cells LM Ql (Urine sed)FEWAbnormalNONE SEEN /RAREThe [facility] [place] [facility] CenterComment on above:Performed By: #### ACET, SALYC #### [facility] [place] [facility] [address] [address] [address] Ibis GallegosCOUSRM SEENNormalNONE SEENThe [facility] [place] [facility] CenterComment on above:Performed By: #### ACET, SALYC #### [facility] [place] [facility] [address] [address] [address] Ibis JimenezRBCNONE SEENAbnormal0-2The [facility] [place] [facility] CenterComment on above: Performed By: #### ACET, SALYC #### [facility] [place] [facility] [address] [address] [address] Ibis HamiltonBCRM SEENNormalNONE SEENThe [facility] [place] [facility] CenterComment on above: Performed By: #### ACET, SALYC #### [facility] [place] [facility] [address] [place] [address] Dr. Ibis Alexis AUTO DIFFon 77-79-7393YHOF #0.0 103/ulNormal0.0-0.1The [facility] [place] [facility] CenterComment on above:Performed By: #### ACET, SALYC #### [facility] [place] [facility] [address] [place] [address] Dr. Ibis Souzasophils/100 WBC (Bld)0.2 %Normal0.2-2.0The [facility] [place] [facility] Comment on above:Performed By: #### ACET, SALYC #### [facility] [place] [facility] [address] [place] [address] Dr. Ibis Acevedo #0.0 103/ulNormal0.0-0.7The [facility] Centerment on above: Performed By: #### ACET, SALYC #### [facility] [place] [facility] [address] [place] [address] Dr. Ibis Rojasosinophils/100 WBC (Bld)0.4 %Critically low0.9-7.0The [facility] Centerment on above:Performed By: #### ACET, SALYC #### [facility] [place] [facility] [address] [place] [address] Dr. Ibis Rojasrythrocyte distribution width (RBC) [Ratio]13.2 %Qushcg39.0-15.0 The [facility] [place] [facility] CenterComment on above:Performed By: #### ACET, SALYC #### [facility] [place] [facility] [address] [place] [address] Dr. Ibis JimenezHematocrit (Bld) [Volume fraction]39.7 %Dotnqb56.0-48.0The [facility] [place] [facility] CenterComment on above:Performed By: #### ACET, SALYC #### [facility] [address] [place] [address] Dr. Ibis JimenezHemoglobin (Bld) [Mass/Vol]13.4 g/gPHbbuie15.0-16.0The [facility] Centerment on above:Performed By: #### ACET, SALYC #### [facility] [place] [facility] [address] [place] [address] Dr. Ibis Soto #0.06 10e3/ulCritically high0.00-0.03The [facility] [place] [facility] Comment on above:Performed By: #### ACET, SALYC #### [facility] [address] [place] [address] Dr. Ibis Soto %0.5 %Normal0.0-0.5The [facility] [place] [facility] CenterComment on above: Performed By: #### ACET, SALYC #### [facility] [address] [place] [address] Dr. Ibis Monsalve #2.6 103/ulNormal1.2-3.8The [facility] [place] [facility] CenterComment on above:Performed By: #### ACET, SALYC #### [facility] [address] [place] [address] Dr. Ibis Brennerhocytes/100 WBC (Bld)23.8 %Xbdraq37.5-60.0The [facility] [place] [facility] CenterComment on above:Performed By: #### ACET, SALYC #### [facility] [place] [facility] [address] [place] [address] Dr. Ibis NewtonUAL DIFF REQNONormalThe [facility] [place] [facility] CenterComment on above: Performed By: #### ACET, SALYC #### [facility] [place] [facility] [address] [place] [address] Dr. Ibis Frank (RBC) [Entitic mass]28.8 dqVicykh24.7-34.0The [facility] [place] [facility] CenterComment on above:Performed By: #### ACET, SALYC #### [facility] [place] [facility] [address] [place] [address] Dr. Ibis Frank (RBC) [Mass/Vol]33.8 g/nZYycknv83.9-35.2The [facility] HospitalComment on above:Performed By: #### ACET, SALYC #### [facility] [place] [facility] [address] [place] [address] Dr. Ibis JimenezOKLAHOMA [facility] (RBC) [Entitic vol]85.2 tMVvzbtm70.0-99.0The [facility] [place] [facility] CenterComment on above:Performed By: #### ACET, SALYC #### [facility] [place] [facility] [address] [place] [address] Dr. Ibis Magallanes #0.8 103/ulNormal0.3-0.8The [facility] [place] [facility] CenterComment on above:Performed By: #### ACET, SALYC #### [facility] [address] [place] [address] Dr. Ibis Barbaocytes/100 WBC (Bld)7.7 %Normal1.7-12.0[facility] Comment on above:Performed By: #### ACET, SALYC #### [facility] [address] [place] [address] Dr. Ibis Schultz #7.4 103/ulCritically high1.4-6.5The [facility] Comment on above:Performed By: #### ACET, SALYC #### [facility] [address] [place] [address] Dr. Ibis Hiutrophils/100 WBC (Bld)67.4 %Jrqaid77.0-75.0The [facility] [place] [facility] CenterComment on above:Performed By: #### ACET, SALYC #### [facility] [address] [place] [address] Dr. Ibis Olsenlet mean volume (Bld) [Entitic vol]9.8 fLNormal9.5-13.5The [facility] [place] [facility] CenterComment on above:Performed By: #### ACET, SALYC #### [facility] [address] [place] [address] Dr. Ibis JimenezPLT261 103/ftZttnhb385-305Lbo [facility] [place] [facility] CenterComment on above: Performed By: #### ACET, SALYC #### [facility] [address] [place] [address] Dr. Ibis JimenezRBC4.66 106/ulNormal4.20-5.40The [facility] [place] [facility] CenterComment on above:Performed By: #### ACET, SALYC #### [facility] [address] [place] [address] Dr. Ibis JimenezWBC10.9 103/ulNormal4.0-11.0The [facility] [place] [facility] CenterComment on above:Performed By: #### ACET, SALYC #### [facility] [address] [place] [address] Dr. Ibis JimenezPROF CHEM 8 (BAS METB)on 52-89-5453Mryim gap [Moles/Vol]14.1 mmol/LNormalCherrington HospitalComment on above:Performed By: #### BMP #### [facility] [address] [place] [address] Dr. Ibis iJmenezCalcium [Mass/Vol]8.5 mg/dLNormal8.5-10.1[facility] Comment on above:Performed By: #### BMP #### [facility] [address] [place] [address] Dr. Ibis JimenezChloride [Moles/Vol]103 mmol/MAcccor55-757OgcCherrington Hospital Comment on above:Performed By: #### BMP #### [facility] [address] [place] [address] Dr. Ibis JimenezCO2 [Moles/Vol]22.5 mmol/QKqxzft63.0-32.0The [facility] Comment on above:Performed By: #### BMP #### [facility] [address] [place] [address] Dr. Yilan ChangCreatinine [Mass/Vol]0.64 mg/dLNormal0.55-1.02The [facility] [place] [facility] CenterComment on above:Performed By: #### BMP #### [facility] [address] [place] [address] Dr. Ibis RojasGFR-AF TRINIDADIAN>60Normal>=60The [facility] [place] [facility] CenterComment on above:Performed By: #### BMP #### [facility] [address] [place] [address] Dr. bIis RojasGFR-NON AF TRINIDADIAN>60Normal>=60The [facility] [place] [facility] CenterComment on above:Performed By: #### BMP #### [facility] [address] [place] [address] Dr. Ibis JimenezGlucose [Mass/Vol]141 mg/dLCritically dgmk52-954Yei [facility] [place] [facility] CenterComment on above:Performed By: #### BMP #### [facility] [address] [place] [address] Dr. Ibis JimenezPotassium [Moles/Vol]3.6 mmol/LNormal3.5-5.1The [facility] [place] [facility] Comment on above:Performed By: #### BMP #### [facility] [address] [place] [address] Dr. Ibis JimenezSodium [Moles/Vol]136 mmol/VVwsljt315-250Rwc [facility] [place] [facility] Comment on above:Performed By: #### BMP #### [facility] [address] [place] [address] Dr. Ibis JimenezUrea nitrogen [Mass/Vol]16.0 mg/dLNormal7.0-18.0The [facility] [place] [facility] CenterComment on above:Performed By: #### BMP #### [facility] [place] [facility] [address] [place] [address] Dr. Ibis Lama nitrogen/Creatinine [Mass ratio]25.0 mg/mgNormalThe [facility] [place] [facility] CenterComment on above:Performed By: #### BMP #### [facility] [address] [place] [address] Dr. Ibis GonzalesC AUTO DIFFon 16-92-4252MPZO #0.0 103/ulNormal0.0-0.1The [facility] [place] [facility] CenterComment on above:Performed By: #### ACET, SALYC #### [facility] [address] [place] [address] Dr. Ibis JimenezBasophils/100 WBC (Bld)0.4 %Normal0.2-2.0The [facility] Comment on above:Performed By: #### ACET, SALYC #### [facility] [address] [place] [address] Dr. Ibis Acevedo #0.2 103/ulNormal0.0-0.7The [facility] [place] [facility] CenterComment on above: Performed By: #### ACET, SALYC #### [facility] [address] [place] [address] Dr. Ibis Rojasosinophils/100 WBC (Bld)4.1 %Normal0.9-7.0The [facility] Comment on above:Performed By: #### ACET, SALYC #### [facility] [address] [place] [address] Dr. Ibis Rojasrythrocyte distribution width (RBC) [Ratio]13.2 %Uwdyzm94.0-15.0 The [facility] [place] [facility] CenterComment on above:Performed By: #### ACET, SALYC #### [facility] [address] [place] [address] Dr. Ibis JimenezHematocrit (Bld) [Volume fraction]34.3 %Critically low36.0-48.0 The [facility] [place] [facility] CenterComment on above:Performed By: #### ACET, SALYC #### [facility] [address] [place] [address] Dr. Ibis JimenezHemoglobin (Bld) [Mass/Vol]11.5 g/dLCritically low12.0-16.0The [facility] [place] [facility] CenterComment on above:Performed By: #### ACET, SALYC #### [facility] [address] [place] [address] Dr. Ibis Soto #0.01 10e3/ulNormal0.00-0.03The [facility] [place] [facility] CenterComment on above:Performed By: #### ACET, SALYC #### [facility] [address] [place] [address] Dr. Ibis Soto %0.2 %Normal0.0-0.5The [facility] [place] [facility] CenterComment on above: Performed By: #### ACET, SALYC #### [facility] [address] [place] [address] Dr. Ibis Monsalve #1.5 103/ulNormal1.2-3.8The [facility] [place] [facility] CenterComment on above:Performed By: #### ACET, SALYC #### [facility] [address] [place] [address] Dr. Ibis Brennerhocytes/100 WBC (Bld)26.4 %Wyifkq55.5-60.0The [facility] [place] [facility] CenterComment on above:Performed By: #### ACET, SALYC #### [facility] [address] [place] [address] Dr. Ibis Viera DIFF REQNONormalThe [facility] [place] [facility] CenterComment on above: Performed By: #### ACET, SALYC #### [facility] [address] [place] [address] Dr. Ibis Irby (RBC) [Entitic mass]28.8 pdFgllcc17.7-34.0The [facility] Centerment on above:Performed By: #### ACET, SALYC #### [facility] [address] [place] [address] Dr. Ibis Frank (RBC) [Mass/Vol]33.5 g/vQUovogq76.9-35.2The [facility] [place] [facility] CenterComment on above:Performed By: #### ACET, SALYC #### [facility] [address] [place] [address] Dr. Ibis Dan (RBC) [Entitic vol]86.0 pQCdwmim71.0-99.0The [facility] [place] [facility] CenterComment on above:Performed By: #### ACET, SALYC #### [facility] [address] [place] [address] Dr. Ibis Magallanes #0.5 103/ulNormal0.3-0.8The [facility] [place] [facility] CenterComment on above:Performed By: #### ACET, SALYC #### [facility] [address] [place] [address] Dr. Ibis Barbaocytes/100 WBC (Bld)8.2 %Normal1.7-12.0The [facility] Comment on above:Performed By: #### ACET, SALYC #### [facility] [address] [place] [address] Dr. Ibis Schultz #3.4 103/ulNormal1.4-6.5The [facility] [place] [facility] CenterComment on above:Performed By: #### ACET, SALYC #### [facility] [address] [place] [address] Dr. Ibis Hiutrophils/100 WBC (Bld)60.7 %Pgclqf69.0-75.0The [facility] [place] [facility] CenterComment on above:Performed By: #### ACET, SALYC #### [facility] [address] [place] [address] Dr. Ibis Olsenlet mean volume (Bld) [Entitic vol]9.9 fLNormal9.5-13.5The [facility] [place] [facility] CenterComment on above:Performed By: #### ACET, SALYC #### [facility] [address] [place] [address] Dr. Ibis iJmenezPLT222 103/ogBbankq394-755Cav [facility] [place] [facility] CenterComment on above: Performed By: #### ACET, SALYC #### [facility] [address] [place] [address] Dr. Ibis JimenezRBC3.99 106/ulCritically low4.20-5.40The [facility] [place] [facility] CenterComment on above:Performed By: #### ACET, SALYC #### [facility] [address] [place] [address] Dr. Ibis JimenezWBC5.6 103/ulNormal4.0-11.0The [facility] [place] [facility] CenterComment on above: Performed By: #### ACET, SALYC #### [facility] [address] [address] [address] Ibis JimenezPROF CHEM 8 (BAS METB)on 82-27-7732Orcso gap [Moles/Vol]10.5 mmol/LNormalThe [facility] [place] [facility] CenterComment on above:Performed By: #### BMP #### [facility] [address] [address] [address] Ibis JimenezCalcium [Mass/Vol]8.8 mg/dLNormal8.5-10.1The [facility] Comment on above:Performed By: #### BMP #### [facility] [address] [address] [address] Ibis JimenezChloride [Moles/Vol]105 mmol/AKinbwv57-864Uci [facility] Comment on above:Performed By: #### BMP #### [facility] [address] [place] [address] Dr. Ibis JimenezCO2 [Moles/Vol]24.9 mmol/JZbqxff26.0-32.0[facility] Comment on above:Performed By: #### BMP #### [facility] [address] [address] [address] Ibis JimenezCreatinine [Mass/Vol]0.71 mg/dLNormal0.55-1.02The [facility] [place] [facility] CenterComment on above:Performed By: #### BMP #### [facility] [address] [address] [address] Ibis RojasGFR-AF TRINIDADIAN>60Normal>=60The [facility] [place] [facility] CenterComment on above:Performed By: #### BMP #### [facility] [address] [address] [address] Ibis RojasGFR-NON AF TRINIDADIAN>60Normal>=60The [facility] [place] [facility] CenterComment on above:Performed By: #### BMP #### [facility] [address] [address] [address] Ibis JimenezGlucose [Mass/Vol]103 mg/hAOimxbj01-590Nht [facility] Comment on above:Performed By: #### BMP #### [facility] [address] [address] [address] Ibis JimenezPotassium [Moles/Vol]3.4 mmol/LCritically low3.5-5.1[facility] HospitalComment on above:Performed By: #### BMP #### [facility] [address] [address] [address] Ibis JimenezSodium [Moles/Vol]137 mmol/YYquurr928-311Ehw [facility] Comment on above:Performed By: #### BMP #### [facility] [address] [address] [address] Ibis JimenezUrea nitrogen [Mass/Vol]17.0 mg/dLNormal7.0-18.0[facility] HospitalComment on above:Performed By: #### BMP #### [facility] [address] [place] [address] Dr. Ibis Lama nitrogen/Creatinine [Mass ratio]23.9 mg/mgNormalThe [facility] [place] [facility] CenterComment on above:Performed By: #### BMP #### [facility] [address] [place] [address] Dr. Ibis JimenezBasic Metab w/rfx MGon 10-20-2021(cont.)[facility] for RehabilitationComment on above:Result Comment: Average GFR for 20-29 years old: 116 mL/min/1.73sq m Chronic Kidney Disease: <60 mL/min/1.73sq m Kidney failure: <15 mL/min/1.73sq m eGFR calculated using average adult body mass. Additional eGFR calculator available at: http://www.Safaricross.com/multiple_crcl_2012.htmPerformed By: #### BMPX #### [employer] [address] [place], [place] [id number] Telehealth Case Manager: Shira Holden gap [Moles/Vol]10 mmol/LNormal9-17[facility] HospitalComment on above:Performed By: #### BMPX #### [employer] [address] [place] [address] Telehealth Case Manager: CLARK Holdenalcium [Mass/Vol]7.8 mg/dLLow8.6-10.4[facility] HospitalComment on above:Performed By: #### BMPX #### [address] [address] Telehealth Case Manager: CLARK Holdenhloride [Moles/Vol]109 mmol/NEwxx20-889ZgmdqGreene Memorial HospitalComment on above:Performed By: #### BMPX #### [address] [address] Telehealth Case Manager: Tavon Nicole MDCO2 [Moles/Vol]20 mmol/IFiuwgv54-89JvibkGreene Memorial HospitalComment on above:Performed By: #### BMPX #### [address] [address] Telehealth Case Manager: CLARK Holdenreatinine [Mass/Vol]0.45 mg/dLLow0.50-0.90[facility]ene Memorial HospitalComment on above:Performed By: #### BMPX #### [address] [address] Telehealth Case Manager: Tavon Nicole MDGFR, Amer>60Normal>60[facility] HospitalComment on above:Performed By: #### BMPX #### [address] [address] Telehealth Case Manager: Tavon Nicole MDGFR,non Amer>60Normal>60[facility] HospitalComment on above:Performed By: #### BMPX #### [address] [address] Telehealth Case Manager: Tavon Nicole MDGlucose [Mass/Vol]84 mg/cIGgcnaw54-13KfurvMountain View campusComment on above:Performed By: #### BMPX #### [employer] [address] [place] [address] Telehealth Case Manager: MAGED Holdenotassium [Moles/Vol]4.1 mmol/LNormal3.7-5.3 [facility] HospitalComment on above:Result Comment: SPECIMEN SLIGHTLY HEMOLYZED, RESULTS MAY BE ADVERSELY AFFECTED.Performed By: #### BMPX #### [facility] [address] [place] [address] Telehealth Case Manager: ALEX Holdenodium [Moles/Vol]139 mmol/AFosivw823-443CopfmGreene Memorial HospitalComment on above:Performed By: #### BMPX #### [employer] [address] [place] [address] Telehealth Case Manager: Tavon Nicole MDUrea nitrogen [Mass/Vol]8 mg/dLNormal6-20[facility] HospitalComment on above:Performed By: #### BMPX #### [employer] [address] [place] [address] Telehealth Case Manager: Tavon Nicole MDBacumberland hall hospital Metabolic Panel w/ Reflex to MGon 77-06-1910Diulj gap [Moles/Vol]10 mmol/L9 - 17 mmol/LBON [facility] Calcium [Mass/Vol]7.8 mg/dLLow8.6 - 10.4 mg/dLBON [facility] DNsolution HEALTHChloride [Moles/Vol]109 mmol/LHigh98 - 107 mmol/LBON SECOURS DNsolution HEALTHCO2 [Moles/Vol] 20 mmol/L20 - 31 mmol/LBON [facility] iSironaCreatinine [Mass/Vol]0.45 mg/dL Low0.5 - 0.9 mg/dLBON SECServiceFrame HEALTHGFR >6060 - PINF mL/minBON SECOURS DNsolution HEALTHGFR Non->6060 - PINF mL/minBON SECBare SnacksGFR/1.73 sq M.predicted MDRD (S/P/Bld) [Vol rate/Area][facility] MEDICAL CENTERComment on above:Average GFR for 20-29 years old: 116 mL/min/1.73sq m Chronic Kidney Disease: <60 mL/min/1.73sq m Kidney failure: <15 mL/min/1.73sq m eGFR calculated using average adult body mass. Additional eGFR calculator available at: http://www.I-Market/multiple_crcl_2012.htm Glucose [Mass/Vol]84 mg/dL70 - 99 mg/dLBON [facility] CENTERInterpretation and review of laboratory resultsAbnormalBON [facility] CENTERPotassium [Moles/Vol]4.1 mmol/L3.7 - 5.3 mmol/LBON [facility]ICAL CENTERComment on above: SPECIMEN SLIGHTLY HEMOLYZED, RESULTS MAY BE ADVERSELY AFFECTED.Sodium [Moles/Vol]139 mmol/L135 - 144 mmol/LBON [facility] MEDICAL CENTERUrea nitrogen (BldV) [Mass/Vol]8 mg/dL6 - 20 mg/dLBON SECGRANT REGIONAL HEALTH CENTERCBC with Auto Differentialon [id number] Eos #0.15[facility]OSPITALAbsolute Immature GranulocyteBON SECOHIOHEALTH GRADY MEMORIAL HOSPITALAbsolute Lymph #1.48 [facility]OSPITALAbsolute Towns #0.28B[facility] HOSPITALBasophils (Bld) [#/Vol]0.03 10*3/uLBON SECOHIOHEALTH GRADY MEMORIAL HOSPITALBasophils/100 WBC (Bld)1 %0 - 2 %[facility] HOSPITALEosinophils/100 WBC (Bld)3 %1 - 4 %[facility] HOSPITALHematocrit (Bld) [Volume fraction]35.5 %Low36.3 - 47.1 %[facility] HOSPITALHemoglobin (Bld) [Mass/Vol]11.3 g/dLLow11.9 - 15.1 g/dLBON SECOHIOHEALTH GRADY MEMORIAL HOSPITALImmature granulocytes/100 WBC (Bld)0 %0B[facility] Interpretation and review of laboratory resultsAbnormalSENTARA [facility]ITAL Lymphocytes/100 WBC (Bld)34 %24 - 43 %B[facility] CENTERMCH (RBC) [Entitic mass]27.9 pg25.2 - 33.5 pgBON TWIN CITY HOSPITALHC (RBC) [Mass/Vol]31.8 g/dL28.4 - 34.8 g/dLBON SECMERCY HEALTH ST. CHARLES HOSPITALV (RBC) [Entitic vol]87.7 fL82.6 - 102.9 fLSENTARA HALIFAX REGIONAL HOSPITALMonocytes/100 WBC (Bld)6 %3 - 12 %[facility] HOSPITALNRBC Automated0.00.0 per 100 WBCSENTARA HALIFAX REGIONAL HOSPITALPlatelet distribution width (Bld) [Ratio]12.9 %11.8 - 14.4 %[facility] Platelets (Bld) [#/Vol]See Reflexed IPF ResultSENTARA HALIFAX REGIONAL HOSPITALRBC (Bld) [#/Vol]4.05 10*6/uL3.95 - 5.11 m/uLSENTARA HALIFAX REGIONAL HOSPITALSegmented neutrophils/100 WBC (Bld)55 %36 - 65 %[facility]IF[facility] REGIONAL HOSPITALSegs Absolute2.42 [facility] MED[facility] CENTERWBC (Bld) [#/Vol]4.4 10*3/uLBON BENNETT COUNTY HOSPITAL AND NURSING HOMECBC with Diffon [id number]. Basophil0.03 k/uLNormal 0.00-0.20Greene [facility] HospitalComment on above:Performed By: #### CDP, IPF #### [employer] [address] [place] [address] Telehealth Case Manager: Wendy Holden.Imm.Granulocyte<0.82Hemtit0.00-0.30[facility]ene Memorial HospitalComment on above:Performed By: #### CDP, IPF #### [employer] [address] [place] [address] Telehealth Case Manager: Wendy Holden.Neutrophil (Seg)2.42 k/uLNormal1.50-8.10 [facility] HospitalComment on above:Performed By: #### CDP, IPF #### [employer] [address] [place] [address] Telehealth Case Manager: Tavon Nicole MDBasophils/100 WBC (Bld)1 %Normal0-2MMonrovia Community HospitalComment on above:Performed By: #### CDP, IPF #### [address] [address] Telehealth Case Manager: Tavon Nicole MDEosinophils (Bld) [#/Vol]0.15 10*3/uLNormal 0.00-0.44[facility] HospitalComment on above:Performed By: #### CDP, IPF #### [address] [address] Telehealth Case Manager: Tavon Nicole MDEosinophils/100 WBC (Bld)3 %Normal1-4[facility] HospitalComment on above:Performed By: #### CDP, IPF #### [address] [address] Telehealth Case Manager: Tavon Nicole MDImmature granulocytes/100 WBC (Bld)0 %Normal0 [facility] HospitalComment on above:Performed By: #### CDP, IPF #### [address] [address] Telehealth Case Manager: Antonia Holdenmphocytes (Bld) [#/Vol]1.48 10*3/uLNormal 1.10-3.70[facility] HospitalComment on above:Performed By: #### CDP, IPF #### [address] [address] Telehealth Case Manager: Antonia Holdenmphocytes/100 WBC (Bld)34 %Epurvk30-04IbutzGreene Memorial HospitalComment on above:Performed By: #### CDP, IPF #### [address] [address] Telehealth Case Manager: JUNAID Holdenonocytes (Bld) [#/Vol]0.28 10*3/uLNormal 0.10-1.20[facility] HospitalComment on above:Performed By: #### CDP, IPF #### [address] [address] Telehealth Case Manager: JUNAID Holdenonocytes/100 WBC (Bld)6 %Normal3-12[facility] HospitalComment on above:Performed By: #### CDP, IPF #### [address] [address] Telehealth Case Manager: Tavon Nicole MDNeutrophil (Seg)55 %Zvprza05-06NzzefGreene Memorial HospitalComment on above:Performed By: #### CDP, IPF #### [address] [address] Telehealth Case Manager: Tavon Nicole MDErythrocyte distribution width (RBC) [Ratio]12.9 %Ntbwfc57.8-14.4[facility] HospitalComment on above:Performed By: #### GAMALIEL, IPF #### [address] [address] Telehealth Case Manager: Tavon Nicole MDHematocrit (Bld) [Volume fraction]35.5 %Low 36.3-47.1MMonrovia Community HospitalComment on above:Performed By: #### CDP, IPF #### [address] [address] Telehealth Case Manager: Tavon Nicole MDHemoglobin (Bld) [Mass/Vol]11.3 g/dLLow11.9-15.1 [facility] HospitalComment on above:Performed By: #### CDP, IPF #### [address] [address] Telehealth Case Manager: JUNAID HoldenCH (RBC) [Entitic mass]27.9 cxGxltzz23.2-33.5 [facility] HospitalComment on above:Performed By: #### CDP, IPF #### [address] [address] Telehealth Case Manager: JUNAID HoldenCHC (RBC) [Mass/Vol]31.8 g/iXEaanzo11.4-34.8 [facility] HospitalComment on above:Performed By: #### CDP, IPF #### [address] [address] Telehealth Case Manager: JUNAID HoldenCV (RBC) [Entitic vol]87.7 oEEzjkxl12.6-102.9 [facility] HospitalComment on above:Performed By: #### CDP, IPF #### [address] [address] Telehealth Case Manager: Tavon Nicole MDNRBC Automated0.0 per 100 WBCNormal0.0[facility] HospitalComment on above:Performed By: #### CDP, IPF #### [address] [address] Telehealth Case Manager: Kaylee Holdentelet CountSee Reflexed IPF ResultNormal 138-453Greene Memorial HospitalComment on above:Performed By: #### CDP, IPF #### [address] [address] Telehealth Case Manager: FRANCISCO HoldenBC (Bld) [#/Vol]4.05 10*6/uLNormal3.95-5.11 [facility] HospitalComment on above:Performed By: #### CDP, IPF #### [address] [address] Telehealth Case Manager: JESSE HoldenBC (Bld) [#/Vol]4.4 10*3/uLNormal3.5-11.3[facility] Van Ness CampusComment on above:Performed By: #### CDP, IPF #### [facility] [address] [place] [address] Telehealth Case Manager: JUSTIN Holden video monitoringon [id number] Owais, MD 10/20/2021 12:11 PM Referring physician: Chris Blanchard APRN Date:10/20/2021 Start Time:10/19/2021 @1258 End Time: 10/20/2021 @ 1200 Indication Patient with recurrent events Introduction This continuous video-EEG was acquired using a Rue89 workstation at 256 samples/s. Electrodes were placed [...] Board Certified. Neurology Board Certified. Electronically Signed Virtual DBS Phone: eeg video monitoringOrdered By: Raiza Land on [id number] [employer] Phone: Immature Platelet Fractionon 24-90-5419Dprqywpr, FluorescencePlatelet clumps present, count appears adequate.BugSensePLT, Immature Fract.on 79-59-2507Hnieoato, Fluoresc.Platelet clumps present, count appears adequate.Uwavuv821-225RebweGreene Memorial HospitalComment on above:Performed By: #### CDP, IPF #### [address] [address] Telehealth Case Manager: MAGED HoldenROLACTINon 17-78-3182Dzhnvywdn14.7 ng/mL Critically high4.8-23.3TMartin Memorial HospitalComment on above:Performed By: #### CVDTBH #### [facility] [place] [facility] [address] [place], [place] [address] Dr. Ibis Nelson 95-03-1658Lubbeuhufiu distribution width (RBC) [Ratio]12.9 %Qunnsv05.8-14.4[facility] HospitalComment on above:Performed By: #### TROPI, LACTIC, CMPX, CBC #### [address] [address] Telehealth Case Manager: Tavon Nicole MDHematocrit (Bld) [Volume fraction]31.5 %Low 36.3-47.1MMonrovia Community HospitalComment on above:Performed By: #### TROPI, LACTIC, CMPX, CBC #### [facility] [employer] [address] [place] [address] Telehealth Case Manager: Tavon Nicole MDHemoglobin (Bld) [Mass/Vol]10.8 g/dLLow11.9-15.1 [facility] HospitalComment on above:Performed By: #### TROPI, LACTIC, CMPX, CBC #### [facility] [employer] [address] [place] [address] Telehealth Case Manager: JUNAID HoldenCH (RBC) [Entitic mass]29.1 emDawwwf01.2-33.5 [facility] HospitalComment on above:Performed By: #### TROPI, LACTIC, CMPX, CBC #### [address] [address] Telehealth Case Manager: JUNAID HoldenCHC (RBC) [Mass/Vol]34.3 g/wQNcuqiq57.4-34.8 [facility] HospitalComment on above:Performed By: #### TROPI, LACTIC, CMPX, CBC #### [address] [address] Telehealth Case Manager: JUNAID HoldenCV (RBC) [Entitic vol]84.9 xPResoia25.6-102.9 [facility] HospitalComment on above:Performed By: #### TROPI, LACTIC, CMPX, CBC #### [address] [address] Telehealth Case Manager: NIKO HoldenBC Automated0.0 per 100 WBCNormal0.0[facility] HospitalComment on above:Performed By: #### TROPI, LACTIC, CMPX, CBC #### [address] [address] Telehealth Case Manager: Greta Holden mean volume (Bld) [Entitic vol]9.8 fL Normal8.1-13.5[facility] HospitalComment on above:Performed By: #### TROPI, LACTIC, CMPX, CBC #### [address] [address] Telehealth Case Manager: Kaylee Holdenteyanni (Bld) [#/Vol]281 10*3/hTGpfmwj148-867 [facility] HospitalComment on above:Performed By: #### TROPI, LACTIC, CMPX, CBC #### [address] [address] Telehealth Case Manager: Tavon Nicole MDRBC (Bld) [#/Vol]3.71 10*6/uLLow3.95-5.11[facility] HospitalComment on above:Performed By: #### TROPI, LACTIC, CMPX, CBC #### [facility] [address] [place], [place] [id number] Telehealth Case Manager: Tavon Nicole MDWBC (Bld) [#/Vol]5.0 10*3/uLNormal3.5-11.3[facility] Ness CampusComment on above:Performed By: #### TROPI, LACTIC, CMPX, CBC #### [facility] [address] [place], [place] [id number] Telehealth Case Manager: Tavon Nicole MDHematocrit (Bld) [Volume fraction]31.5 %Low36.3 - 47.1 %[facility] HOSPITALHemoglobin (Bld) [Mass/Vol]10.8 g/dLLow11.9 - 15.1 g/dLBON [facility] MEDICAL CENTERInterpretation and review of laboratory results AbnormalBON TWIN CITY HOSPITALH (RBC) [Entitic mass]29.1 pg25.2 - 33.5 pgBON TWIN CITY HOSPITALHC (RBC) [Mass/Vol]34.3 g/dL28.4 - 34.8 g/dLBON SECMERCY HEALTH ST. CHARLES HOSPITALV (RBC) [Entitic vol]84.9 fL82.6 - 102.9 fLSENTARA HALIFAX REGIONAL HOSPITALNRBC Automated0.00.0 per 100 WBCBON UNIVERSITY HOSPITALS CLEVELAND MEDICAL CENTERPlatelet distribution width (Bld) [Ratio]12.9 %11.8 - 14.4 %[facility] Platelet mean volume (Bld) [Entitic vol]9.8 fL8.1 - 13.5 fLBON [facility] HEALTHPlatelets (Bld) [#/Vol]281 10*3/uLBON SECOHIOHEALTH GRADY MEMORIAL HOSPITALRBC (Bld) [#/Vol]3.71 10*6/uLLow3.95 - 5.11 m/uLBON SECOHIOHEALTH GRADY MEMORIAL HOSPITALWBC (Bld) [#/Vol] 5.0 10*3/uLBON [facility] HEALTHBON SECOHIOHEALTH GRADY MEMORIAL HOSPITALCBC AUTO DIFFon [id number] #0.2 103/ulNormal0.0-0.7The [facility] [place] [facility] CenterComment on above: Performed By: #### AMM #### [facility] [place] [facility] [address] [place] [address] Dr. Ibis Rojasosinophils/100 WBC (Bld)3.9 %Normal0.9-7.0The [facility] [place] [facility] Comment on above:Performed By: #### AMM #### [facility] [place] [facility] [address] [place] [address] Dr. Ibis Rojasrythrocyte distribution width (RBC) [Ratio]13.1 %Qzczqj89.0-15.0 The [facility] [place] [facility] CenterComment on above:Performed By: #### AMM #### [facility] [place] [facility] [address] [place] [address] Dr. Ibis JimenezHematocrit (Bld) [Volume fraction]33.4 %Critically low36.0-48.0 The [facility] [place] [facility] CenterComment on above:Performed By: #### AMM #### [facility] [place] [facility] [address] [place] [address] Dr. Ibis JimenezHemoglobin (Bld) [Mass/Vol]11.1 g/dLCritically low12.0-16.0The [facility] [place] [facility] CenterComment on above:Performed By: #### AMM #### [facility] [place] [facility] [address] [place] [address] Dr. Ibis VuongMPH #1.2 103/ulNormal1.2-3.8The [facility] [place] [facility] CenterComment on above:Performed By: #### AMM #### [facility] [place] [facility] [address] [place] [address] Dr. Ibis JimneezLymphocytes/100 WBC (Bld)25.9 %Kyqcrs37.5-60.0The [facility] [place] [facility] CenterComment on above:Performed By: #### AMM #### [facility] [place] [facility] [address] [place] [address] Dr. Ibis JimenezMCHC (RBC) [Mass/Vol]33.2 g/pXSkqwhk49.9-35.2The [facility] [place] [facility] CenterComment on above:Performed By: #### AMM #### [facility] [place] [facility] [address] [place] [address] [address] Ibis Dan (RBC) [Entitic vol]85.9 xWIuxwav62.0-99.0The [facility] [place] [facility] CenterComment on above:Performed By: #### AMM #### [facility] [place] [facility] [address] [place] [address] Dr. Ibis Barbaocytes/100 WBC (Bld)7.7 %Normal1.7-12.0The [facility] [place] [facility] Comment on above:Performed By: #### AMM #### [facility] [place] [facility] [address] [place] [address] Dr. Ibis Schultz #2.9 103/ulNormal1.4-6.5The [facility] [place] [facility] CenterComment on above:Performed By: #### AMM #### [facility] [place] [facility] [address] [place] [address] Dr. Ibis Hiutrophils/100 WBC (Bld)61.5 %Ulotrm03.0-75.0The [facility] [place] [facility] CenterComment on above:Performed By: #### AMM #### [facility] [place] [facility] [address] [place] [address] Dr. Ibis JimenezPLT264 103/zkQjsyfs486-604Hfk [facility] [place] [facility] CenterComment on above: Performed By: #### AMM #### [facility] [place] [facility] [address] [place] [address] Dr. Ibis JimenezRBC3.89 106/ulCritically low4.20-5.40The [facility] [place] [facility] CenterComment on above:Performed By: #### AMM #### [facility] [place] [facility] [address] [place] [address] Dr. Ibis JimenezWBC4.7 103/ulNormal4.0-11.0The [facility] Centerment on above: Performed By: #### AMM #### [facility] [place] [facility] [address] [place] [address] Dr. Ibis Escamilla #0.0 103/ulNormal0.0-0.1The [facility]jandra HospitalComment on above:Performed By: #### AMM #### [facility] [address] [place] [address] Dr. Ibis JimenezPerformed By: #### CVDTBH #### [facility] [address] [place] [address] Dr. Ibis JimenezBasophils/100 WBC (Bld)0.6 %Normal0.2-2.0[facility] Comment on above:Performed By: #### AMM #### [facility] [address] [place] [address] Dr. Ibis JimenezPerformed By: #### CVDTBH #### [facility] [place] [facility] [address] [place] [address] Dr. Ibis Acevedo #0.3 103/ulNormal0.0-0.7The [facility] [place] [facility] CenterComment on above: Performed By: #### CVDTBH #### [facility] [address] [place] [address] Dr. Ibis Rojasosinophils/100 WBC (Bld)5.0 %Normal0.9-7.0[facility] Comment on above:Performed By: #### CVDTBH #### [facility] [address] [place] [address] Dr. Ibis Rojasrythrocyte distribution width (RBC) [Ratio]12.8 %Daaeqi54.0-15.0 The [facility] [place] [facility] CenterComment on above:Performed By: #### CVDTBH #### [facility] [address] [place] [address] Dr. Ibis JimenezHematocrit (Bld) [Volume fraction]38.0 %Fnitjs54.0-48.0[facility] HospitalComment on above:Performed By: #### CVDTBH #### [facility] [place] [facility] [address] [place] [address] Dr. Ibis JimenezHemoglobin (Bld) [Mass/Vol]12.7 g/kNAmosml58.0-16.0The [facility] [place] [facility] CenterComment on above:Performed By: #### CVDTBH #### [facility] [address] [place], [place] [id number] Dr. Ibis Soto #0.02 10e3/ulNormal0.00-0.03The [facility] [place] [facility] CenterComment on above:Performed By: #### AMM #### [facility] [address] [place] [address] Dr. Ibis Cortesformed By: #### CVDTBH #### [facility] [address] [place] [address] Dr. Ibis Soto %0.4 %Normal0.0-0.5The [facility] [place] [facility] CenterComment on above: Performed By: #### AMM #### [facility] [address] [place] [address] Dr. Ibis Cortesformed By: #### CVDTBH #### [facility] [address] [place] [address] Dr. Iibs Monsalve #1.7 103/ulNormal1.2-3.8The [facility] [place] [facility] CenterComment on above:Performed By: #### CVDTBH #### [facility] [address] [place] [address] Dr. Ibis Brennerhocytes/100 WBC (Bld)30.7 %Oavjwp66.5-60.0The [facility] on above:Performed By: #### CVDTBH #### [facility] [address] [place] [address] Dr. Ibis NewtonUAL DIFF REQNONormalThe [facility] [place] [facility] CenterComment on above: Performed By: #### AMM #### [facility] [address] [place] [address] Dr. Ibis Cortesformed By: #### CVDTBH #### [facility] [address] [place] [address] Dr. Ibis Irby (RBC) [Entitic mass]28.5 ksCuassw90.7-34.0The [facility] [place] [facility] CenterComment on above:Performed By: #### AMM #### [facility] [address] [place] [address] Dr. Ibis Cortesformed By: #### CVDTBH #### [facility] [address] [place] [address] Dr. Ibis Frank (RBC) [Mass/Vol]33.4 g/sYXdoeve28.9-35.2The [facility] [place] [facility] CenterComment on above:Performed By: #### CVDTBH #### [facility] [address] [place] [address] Dr. Ibis Frank (RBC) [Entitic vol]85.2 vWKihfjt81.0-99.0The [facility] HospitalComment on above:Performed By: #### CVDTBH #### [facility] [address] [place] [address] Dr. Ibis Magallanes #0.4 103/ulNormal0.3-0.8The [facility] [place] [facility] CenterComment on above:Performed By: #### AMM #### [facility] [address] [place] [address] Dr. Ibis JimenezPerformed By: #### CVDTBH #### [facility] [address] [place] [address] Dr. Ibis Barbaocytes/100 WBC (Bld)8.1 %Normal1.7-12.0The [facility] Comment on above:Performed By: #### CVDTBH #### [facility] [address] [place] [address] Dr. Ibis Schultz #3.0 103/ulNormal1.4-6.5The [facility] [place] [facility] CenterComment on above:Performed By: #### CVDTBH #### [facility] [address] [place] [address] Dr. Ibis Hiutrophils/100 WBC (Bld)55.2 %Gdctnr91.0-75.0The [facility] [place] [facility] CenterComment on above:Performed By: #### CVDTBH #### [facility] [address] [place] [address] Dr. Ibis Olsenlet mean volume (Bld) [Entitic vol]9.5 fLNormal9.5-13.5The [facility] [place] [facility] CenterComment on above:Performed By: #### AMM #### [facility] [address] [place] [address] Dr. Ibis JimenezPerformed By: #### CVDTBH #### [facility] [address] [place] [address] Dr. Ibis JimenezPLT343 103/kvWumjrc543-930Zlm [facility] [place] [facility] CenterComment on above: Performed By: #### CVDTBH #### [facility] [address] [place] [address] Dr. Ibis JimenezRBC4.46 106/ulNormal4.20-5.40The [facility] [place] [facility] CenterComment on above:Performed By: #### CVDTBH #### [facility] [address] [place] [address] Dr. Ibis JimenezWBC5.4 103/ulNormal4.0-11.0The [facility] [place] [facility] CenterComment on above: Performed By: #### CVDTBH #### [facility] [address] [place] [address] Dr. Ibis JimenezCT HEAD WO CONon [id number] HEAD WO CONEXAMINATION: CT HEAD WO CON [...] Electronically authenticated by: LOPEZ REYNOLDS Date: 2021-10-19 07:31[facility] HospitalCom Metabolic Pr/rfx MGon 10-19-2021(cont.)NormalMercy Van Ness CampusComment on above:Result Comment: Average GFR for 20-29 years old: 116 mL/min/1.73sq m Chronic Kidney Disease: <60 mL/min/1.73sq m Kidney failure: <15 mL/min/1.73sq m eGFR calculated using average adult body mass. Additional eGFR calculator available at: http://www.I-[employer]/multiple_crcl_2012.htmPerformed By: #### TROPI, LACTIC, CMPX, CBC #### [place] [address] Telehealth Case Manager: Tavon Nicole MDAlbumin [Mass/Vol]3.5 g/dLNormal3.5-5.2MMonrovia Community HospitalComment on above:Performed By: #### TROPI, LACTIC, CMPX, CBC #### [place] [address] Telehealth Case Manager: Tavon Nicole MDAlbumin/Glob Ratio1.8Udiarh2.0-2.5[facility] HospitalComment on above:Performed By: #### TROPI, LACTIC, CMPX, CBC #### [place] [address] Telehealth Case Manager: Tavon Nicole MDAlkaline Phos69 U/JKtfwat10-744ZugqnGreene Memorial HospitalComment on above:Performed By: #### TROPI, LACTIC, CMPX, CBC #### [place] [address] Telehealth Case Manager: Tavon Nicole MDALT [Catalytic activity/Vol]15 U/LNormal5-33 [facility] HospitalComment on above:Performed By: #### TROPI, LACTIC, CMPX, CBC #### [place] [address] Telehealth Case Manager: Tavon Nicole MDAnion gap [Moles/Vol]13 mmol/LNormal9-17[facility] HospitalComment on above:Performed By: #### TROPI, LACTIC, CMPX, CBC #### [facility] [address] [place] [address] Telehealth Case Manager: Tavon Nicole MDAST [Catalytic activity/Vol]12 U/LNormal<32Greene Memorial HospitalComment on above:Performed By: #### TROPI, LACTIC, CMPX, CBC #### [address] [address] Telehealth Case Manager: Tavon Nicole MDBilirubin [Mass/Vol]0.24 mg/dLLow0.3-1.2MMonrovia Community HospitalComment on above:Performed By: #### TROPI, LACTIC, CMPX, CBC #### [address] [address] Telehealth Case Manager: Tavon Nicole MDCalcium [Mass/Vol]8.1 mg/dLLow8.6-10.4Greene Memorial HospitalComment on above:Performed By: #### TROPI, LACTIC, CMPX, CBC #### [address] [address] Telehealth Case Manager: Tavon Nicole MDChloride [Moles/Vol]107 mmol/CXwxlnx97-668TqaswGreene Memorial HospitalComment on above:Performed By: #### TROPI, LACTIC, CMPX, CBC #### [address] [address] Telehealth Case Manager: Tavon Nicole MDCO2 [Moles/Vol]19 mmol/PRhz11-76MbztiGreene Memorial HospitalComment on above:Performed By: #### TROPI, LACTIC, CMPX, CBC #### [address] [address] Telehealth Case Manager: Tavon Nicole MDCreatinine [Mass/Vol]0.53 mg/dLNormal0.50-0.90 [facility] HospitalComment on above:Performed By: #### TROPI, LACTIC, CMPX, CBC #### [facility] [address] [place] [address] Telehealth Case Manager: Tavon Nicole MDGFR, Amer>60Normal>60Greene Memorial HospitalComment on above:Performed By: #### TROPI, LACTIC, CMPX, CBC #### [facility] [address] [place] [address] Telehealth Case Manager: DEJA Holden,non Amer>60Normal>60MerBaldwin Park HospitalComment on above:Performed By: #### TROPI, LACTIC, CMPX, CBC #### [facility] [address] [place] [address] Telehealth Case Manager: Tavon Nicole MDGlucose [Mass/Vol]81 mg/fNHuwaoe92-44PizjgMonrovia Community HospitalComment on above:Performed By: #### TROPI, LACTIC, CMPX, CBC #### [address] [address] Telehealth Case Manager: Tavon Nicole MDPotassium [Moles/Vol]3.9 mmol/LNormal3.7-5.3 [facility] HospitalComment on above:Performed By: #### TROPI, LACTIC, CMPX, CBC #### [address] [address] Telehealth Case Manager: Tavon Nicole MDProtein [Mass/Vol]6.0 g/dLLow6.4-8.3MMonrovia Community HospitalComment on above:Performed By: #### TROPI, LACTIC, CMPX, CBC #### [address] [address] Telehealth Case Manager: Tavon Nicole MDSodium [Moles/Vol]139 mmol/OMkctyy099-053WrjukGreene Memorial HospitalComment on above:Performed By: #### TROPI, LACTIC, CMPX, CBC #### [facility] [address] [place] [address] Telehealth Case Manager: Tavon Nicole MDUrea nitrogen [Mass/Vol]10 mg/dLNormal6-20Greene Memorial HospitalComment on above:Performed By: #### TROPI, LACTIC, CMPX, CBC #### [facility] [address] [place], [place] [id number] Telehealth Case Manager: CLARK Holdenomprehensive Metabolic Panel w/ Reflex to MGon 57-50-4294Heqyzwu [Mass/Vol]3.5 g/dL3.5 - 5.2 g/dLBON SECOURS MER[facility] [...] HEALTHGFR/1.73 sq M.predicted MDRD (S/P/Bld) [Vol rate/Area][facility] on above:Average GFR for 20-29 years old: 116 mL/min/1.73sq m Chronic Kidney Disease: <60 mL/min/1.73sq m Kidney failure: <15 mL/min/1.73sq m eGFR calculated using average adult body mass. Additional eGFR calculator available at: http://www.[employer]/CohesiveFT_crcl_2012.htm Glucose [Mass/Vol]81 mg/dL70 - 99 mg/dLBON UNIVERSITY HOSPITALS CLEVELAND MEDICAL CENTERInterpretation and review of laboratory resultsAbnormalBON UNIVERSITY HOSPITALS CLEVEL[facility] MEDICAL CENTERPotassium [Moles/Vol]3.9 mmol/L3.7 - 5.3 mmol/LBON [facility]IVERSITY [facility]IT[facility]ICAL CENTERSodium [Moles/Vol] 139 mmol/L135 - 144 mmol/LBON UNIVERSITY HOSPITALS CLEVELAND MEDICAL CENTERUrea nitrogen (BldV) [Mass/Vol]10 mg/dL6 - 20 mg/dLBON [facility] Covid-19 PCR (CVDTBH)on 11-24-2340KLCS-CoV-2 (COVID-19) RNA SAURABH+probe Ql (Unsp spec)Not detectedNormalNOT DETECTEDThe [facility] on above:Result Comment: When diagnostic testing [...] for this test is supported by the [place] of Health and Human Service's declaration that [...] longer be used).Performed By: #### CVDTBH #### [facility] [address] [place] [address] Dr. Ibis Cristina SCREEN RAPID (URINE)on 50-64-0796LQVTffmvxszIyurikSUBGODMT [facility] on above:Performed By: #### BMP #### [facility] [address] [place] [address] Dr. Ibis JimenezBARPositiveAbnormalNEGMemorial Health System on above: Performed By: #### BMP #### [facility] [address] [place] [address] Dr. Ibis JimenezBUPNegativeNormalNEGMemorial Health System on above: Performed By: #### BMP #### [facility] [address] [place] [address] Dr. Ibis JimenezBZOPositiveLegacy HealthNEGMemorial Health System on above: Performed By: #### BMP #### [facility] [address] [place] [address] Dr. Ibis DanielCNegativeNormalNEGMemorial Health System on above: Performed By: #### BMP #### [facility] [address] [place] [address] Dr. Ibis YanFlower HospitalComselect specialty hospital-pontiac on above: Result Comment: AMP (Amphetamine): 500ng/mL, BAR (Barbituates): 200 ng/mL, BZO (Benzodiazepines): 150 ng/mL, BUP (Buprenorphine): 10 ng/mL, SEMAJ (Cocaine): 150 ng/mL, mAMP (Methamphetamine): 500 ng/mL, MTD (Methadone): 200 ng/mL, OPI (Opiates): 100 ng/mL, OXY (Oxycodone): 100 ng/mL, PCP (Phencyclidine): 25 ng/mL, PPX (Propoxyphene): 300 ng/mL, THC (Cannabinoids): 50 ng/mL, TCA (Trycyclic Antidepressants): 300 ng/mLPerformed By: #### BMP #### [facility] [address] [place] [address] Dr. Yilan ChangDRUG CUT HEADERDRUG CLASS TEST SYSTEM CUT-OFF CONCENTRATIONS ARE FOLLOWS:NormalThe [facility] CenterComment on above:Performed By: #### BMP #### [facility] [address] [place] [address] Dr. Ibis JimenezmAMPNegativeNormalNEGATIVECherrington HospitalComselect specialty hospital-[facility] on above: Performed By: #### BMP #### [facility] [address] [address] [address] Ibis JimenezMTDNegativeNormalNEGATIVECherrington HospitalComselect specialty hospital-[facility] on above: Performed By: #### BMP #### [facility] [address] [address] [address] Ibis JimenezOPIPositiveAbnormalNEGATIVECherrington HospitalComselect specialty hospital-[facility] on above: Performed By: #### BMP #### [facility] [address] [place] [address] Dr. Ibis JimenezOXYPositiveAbnormalNEGATIVECherrington HospitalComselect specialty hospital-[facility] on above: Performed By: #### BMP #### [facility] [address] [place] [address] Dr. Ibis JimenezPCPNegativeNormalNEGATIVECherrington HospitalComselect specialty hospital-[facility] on above: Performed By: #### BMP #### [facility] [address] [place] [address] Dr. Ibis JimenezPPXNegativeNormalNEGATIVEMcKitrick Hospital on above: Performed By: #### BMP #### [facility] [address] [place] [address] Dr. Ibis JimenezTCANegativeNormalNEGATIVECherrington HospitalComselect specialty hospital-[facility] on above: Performed By: #### BMP #### [facility] [address] [address] [address] Ibis JimenezTHCNegativeNormalNEGATIVEMcKitrick Hospital on above: Performed By: #### BMP #### [facility] [address] [place] [address] Dr. Baumann ChangER URINE PROFILEon 10-74-8286Kgvsfihan Ql (U)NegativeNormal NEGATIVEOhiohealth Mansfield Hospital HospitalComment on above:Performed By: #### BMP #### [facility] [address] [address] [address] Ibis JimenezClarity (U)CLEARNormalCLEAROhiohealth Mansfield Hospital HospitalComment on above: Performed By: #### BMP #### [facility] [address] [address] [address] Ibis JimenezColor (U)YELLOWNormalYELLOWOhiohealth Mansfield Hospital HospitalComment on above: Performed By: #### BMP #### [facility] [address] [address] [address] Ibis Chang micrscopic examination will be performed if indicated. NormalThe White Heath HospitalComment on above:Performed By: #### BMP #### [facility] [address] [address] [address] Ibis JimenezGlucose Ql (U)NegativeNormalNEGATIVEOhiohealth Mansfield Hospital HospitalComment on above:Performed By: #### BMP #### [facility] [address] [address] [address] Ibis JimenezHemoglobin Ql (U)TRACE-INTACTAbnormalNEGATIVECherrington HospitalComment on above:Performed By: #### BMP #### [facility] [address] [address] [address] Ibis JimenezKetones Ql (U)NegativeNormalNEGATIVECherrington HospitalComment on above:Performed By: #### BMP #### [facility] [address] [address] [address] Ibis JimenezLEUKOCYTESNegativeNormalNEGATIVECherrington HospitalComselect specialty hospital-[facility] on above:Performed By: #### BMP #### [facility] [address] [address] [address] Ibis JimenezNitrite Ql (U)NegativeNormalNEGATIVECherrington HospitalComment on above:Performed By: #### BMP #### [facility] [address] [address] [address] Ibis JimenezpH (U)5.5 [pH]Normal5-9Cherrington HospitalComment on above: Performed By: #### BMP #### [facility] [address] [address] [address] Ibis JimenezSPEC GRAVITY>=1.093Etrjixai3.005-<=1.025The [facility] Comment on above:Performed By: #### BMP #### [facility] [address] [address] [address] Ibis Quintanilla PROTEINNegativeNormalNEGATIVE/ TRACEThe [facility] Comment on above:Performed By: #### BMP #### [facility] [address] [address] [address] Ibis Curtis MICRO INDINDICATEDNormalThBarberton Citizens HospitalComment on above: Performed By: #### BMP #### [facility] [address] [place] [address] Dr. Ibis Lorenzbilinogen Qn (U)0.2 {Dinorah'U}/dLNormal0.2 - 1.0The [facility] CenterComment on above:Performed By: #### BMP #### [facility] [address] [address] [address] Ibis JimenezLACTATE/LACTIC ACIDon 33-63-2850Uqxatkf [Moles/Vol]1.2 mmol/L Normal0.4-1.9Cherrington HospitalComment on above:Performed By: #### AMM #### [facility] [address] [place] [address] Dr. Ibis JimenezLactic Acidon 67-97-6546Eommso Acid,Whole Bl0.9 mmol/LNormal 0.7-2.1Mer[facility] Van Ness CampusComment on above:Performed By: #### TROPI, LACTIC, CMPX, CBC #### [facility] [employer] [facility] [place] [address] Telehealth Case Manager: Tavon Nicole MDLactic Acid, Whole Blood0.9 mmol/L0.7 - 2.1 mmol/LBON [facility] 30-44-1885Cgqsvmuit (Bld) [#/Vol]NegativeNormalNEGATIVEThe [facility] CenterComment on above: Performed By: #### MONO #### [facility] [address] [address] [address] Ibis JimenezMRI BRAIN W WO CONTRASTon 95-10-3677QTF BRAIN W WO CONTRAST EXAMINATION: MRI OF [...] by: Carlos Marks DO 10/19/21 Final resultNormalMercy Van Ness CampusUnremarkable MR brain. [facility] RIS CONSOLIDATEDEXAMINATION: MRI OF THE BRAIN WITHOUT [...] The soft tissues demonstrate no acute abnormality. [facility] Carlos Dumont DO - 10/19/2021 EXAMINATION: MRI [...] no acute abnormality. IMPRESSION: Unremarkable MR brain. [employer] Phone: radiology Study observation (narrative)[employer] Phone: MRI BRAIN W WO CONTRASTOrdered By: Carlos Marks on 52-14-0359KGS [employer] Phone: PH VENOUS BLOODon 82-74-2123NVG7 KBRFWF51.6 mmHg Critically low40.0-52.0The [facility] CenterComment on above:Performed By: #### BMP #### [facility] [address] [place] [address] Dr. Ibis JimenezpH VENOUS7.977Pexzhl9.330-7.430The [facility] CenterComment on above:Performed By: #### BMP #### [facility] [address] [place] [address] Dr. Ibis JimenezPROF CHEM 8 (BAS METB)on 96-43-2139Ibfct gap [Moles/Vol]11.9 mmol/LNormalThe [facility] CenterComment on above:Performed By: #### MONO #### [facility] [address] [place] [address] Dr. Ibis JimenezCalcium [Mass/Vol]9.1 mg/dLNormal8.5-10.1The [facility] Comment on above:Performed By: #### MONO #### [facility] [address] [place] [address] Dr. Ibis JimenezChloride [Moles/Vol]104 mmol/DHewfos87-953Uod [facility] Comment on above:Performed By: #### MONO #### [facility] [address] [place] [address] Dr. Ibis JimenezCO2 [Moles/Vol]26.7 mmol/QUbdwqg93.0-32.0The [facility] Comment on above:Performed By: #### MONO #### [facility] [address] [place] [address] Dr. Ibis JimenezCreatinine [Mass/Vol]0.78 mg/dLNormal0.55-1.02The [facility] CenterComment on above:Performed By: #### MONO #### [facility] [address] [place] [address] Dr. Ibis RojasGFR-AF TRINIDADIAN>60Normal>=60The [facility] CenterComment on above:Performed By: #### MONO #### [facility] [address] [place] [address] Dr. Ibis RojasGFR-NON AF TRINIDADIAN>60Normal>=60Cherrington HospitalComment on above:Performed By: #### MONO #### [facility] [address] [address] [address] Ibis JimenezGlucose [Mass/Vol]96 mg/iYJayiir77-867KybCherrington Hospital Comment on above:Performed By: #### MONO #### [facility] [address] [address] [address] Ibis JimenezPotassium [Moles/Vol]3.6 mmol/LNormal3.5-5.1[facility] Comment on above:Performed By: #### MONO #### [facility] [address] [address] [address] Ibis JimenezSodium [Moles/Vol]139 mmol/YLogjzf989-529Hsb [facility] Comment on above:Performed By: #### MONO #### [facility] [address] [address] [address] Ibis JimenezUrea nitrogen [Mass/Vol]14.0 mg/dLNormal7.0-18.0Cherrington HospitalComment on above:Performed By: #### MONO #### [facility] [address] [address] [address] Ibis Lama nitrogen/Creatinine [Mass ratio]17.9 mg/mgNormalThe [facility] CenterComment on above:Performed By: #### MONO #### [facility] [address] [address] [address] Ibis Wang 59-16-6654CMQ3.389 uIU/mLNormal0.358-3.740Cherrington HospitalComment on above:Performed By: #### ACET, SALYC #### [facility] [address] [address] [address] Ibis Zacarias 47-10-2706Ymqtcskx, High Sens<8Bueiic9-36ZktpkGreene Memorial HospitalComment on above:Result Comment: High Sensitivity Troponin values cannot be compared with other Troponin methodologies. Patients with high levels of Biotin oral intake (i.e >5mg/day) may have falsely decreased Troponin levels. Samples collected within 8 hours of biotin intake may require additional information for diagnosis.Performed By: #### TROPI, LACTIC, CMPX, CBC #### [facility] [address] [place] [address] Telehealth Case Manager: Geraldo Holden, High Sensitivityng/L0 - 14 ng/LBON [facility] on above: High Sensitivity Troponin values cannot be compared with other Troponin methodologies. Patients with high levels of Biotin oral intake (i.e >5mg/day) may have falsely decreased Troponin levels. Samples collected within 8 hours of biotin intake may require additional information for diagnosis. [facility] CENTERURINE MICROSCOPIC ONLYon 23-16-9749FJXIMZVEZTNAFSplwxjal NONE SEENCherrington HospitalComselect specialty hospital-[place] on above:Performed By: #### BMP #### [facility] [address] [place] [address] Dr. Ibis Pettit identified Cx Nom (U)NOT INDICATEDNormalThBarberton Citizens HospitalComselect specialty hospital-[facility] on above:Performed By: #### BMP #### [facility] [address] [place] [address] Dr. Ibis Baron SEENNormalNONE [facility] on above:Performed By: #### BMP #### [facility] [address] [place] [address] Dr. Ibis Oviedo LM Nom (Urine sed)NONE SEENNormalNONE SEENCherrington HospitalComselect specialty hospital-pontiac on above:Performed By: #### BMP #### [facility] [address] [place] [address] Dr. Ibis Rojaspithelial cells LM Ql (Urine sed)RARENormalNONE SEEN /RAREMcKitrick Hospital on above:Performed By: #### BMP #### [facility] [address] [place] [address] Dr. Ibis GramajoGEAbnormalNONE SEENMcKitrick Hospital on above:Performed By: #### BMP #### [facility] [address] [place] [address] Dr. Ibis JimenezTqhpqRKD2-8Jgicqefc8-5Wmm [facility] CenterComment on above:Performed By: #### BMP #### [facility] [address] [address] [address] Ibis JimenezWBC0-2AbnormalNONE SEENThe [facility] CenterComment on above: Performed By: #### BMP #### [facility] [address] [address] [address] Ibis JimenezCT ABD/PELVIS WO CONon 23-04-5232TA ABD/PELVIS WO CONIndication: Pelvic pain status post [...] Electronically authenticated by: JASS LAURENT Date: 2021-10-06 20:08[facility] URINE PROFILEon 79-46-8892Fugfsxewm Ql (U)NegativeNormal NEGATIVECherrington HospitalComment on above:Performed By: #### MONO #### [facility] [address] [place] [address] Dr. Ibis Sage (U)CLEARNormalCLEARCherrington HospitalComment on above: Performed By: #### MONO #### [facility] [address] [place] [address] Dr. Ibis Rivera (U)LT. YELLOWNormalYELLOWCherrington HospitalComment on above:Performed By: #### MONO #### [facility] [address] [place] [address] Dr. Ibis Chang micrscopic examination will be performed if indicated. NormalCherrington HospitalComselect specialty hospital-pontiac on above:Performed By: #### MONO #### [facility] [address] [place] [address] Dr. Ibis JimenezGlucose Ql (U)NegativeNormalNEGATIVECherrington HospitalComselect specialty hospital-[facility] on above:Performed By: #### MONO #### [facility] [address] [place] [address] Dr. Ibis JimenezHemoglobin Ql (U)NegativeNormalNEGATIVECommunity Memorial Hospital on above:Performed By: #### MONO #### [facility] [address] [place] [address] Dr. Ibis JimenezKetones Ql (U)NegativeNormalNEGATIVECherrington HospitalComment on above:Performed By: #### MONO #### [facility] [address] [place] [address] Dr. Ibis JimenezLEUKOCYTESNegativeNormalNEGATIVECherrington HospitalComselect specialty hospital-[facility] on above:Performed By: #### MONO #### [facility] [address] [place] [address] Dr. Ibis JimenezNitrite Ql (U)NegativeNormalNEGATIVECherrington HospitalComment on above:Performed By: #### MONO #### [facility] [address] [place] [address] Dr. Ibis JimenezpH (U)8.0 [pH]Normal5-9The [facility] CenterComment on above: Performed By: #### MONO #### [facility] [address] [place] [address] Dr. Ibis JimenezSPEC GRAVITY1.563Redidc9.005-<=1.025The [facility] CenterComment on above:Performed By: #### MONO #### [facility] [address] [place] [address] Dr. Ibis Quintanilla PROTEINNegativeNormalNEGATIVE/ TRACEThe [facility] Comment on above:Performed By: #### MONO #### [facility] [address] [place] [address] Dr. Ibis Curtis MICRO INDNOT INDICATEDNormalThe [facility] CenterComment on above:Performed By: #### MONO #### [facility] [address] [place] [address] Dr. Ibis JimenezUrobilinogen Qn (U)0.2 {Dinorah'U}/dLNormal0.2 - 1.0Cherrington HospitalComment on above:Performed By: #### MONO #### [facility] [address] [place] [address] Dr. Ibis Drake URINE PROFILEon 40-03-1924Oajrneguq Ql (U)NegativeNormal NEGATIVECherrington HospitalComment on above:Performed By: #### CVDTBH #### [facility] [address] [place] [address] Dr. Ibis Pratherarity (U)CLEARNormalCLEARThe [facility] CenterComment on above: Performed By: #### CVDTBH #### [facility] [address] [place] [address] Dr. Ibis Rivera (U)YELLOWNormalYELLOWCherrington HospitalComment on above: Performed By: #### CVDTBH #### [facility] [address] [place] [address] Dr. Ibis Chang micrscopic examination will be performed if indicated. NormalThe [facility] CenterComment on above:Performed By: #### CVDTBH #### [facility] [address] [address] [address] Ibis JimenezGlucose Ql (U)NegativeNormalNEGATIVECherrington HospitalComment on above:Performed By: #### CVDTBH #### [facility] [address] [address] [address] Ibis JimenezHemoglobin Ql (U)NegativeNormalNEGATIVECherrington Hospital Comment on above:Performed By: #### CVDTBH #### [facility] [address] [place] [address] Dr. Ibis JimenezKetones Ql (U)NegativeNormalNEGATIVECherrington HospitalComment on above:Performed By: #### CVDTBH #### [facility] [address] [place] [address] Dr. Ibis JimenezLEUKOCYTESNegativeNormalNEGATIVECherrington HospitalComment on above:Performed By: #### CVDTBH #### [facility] [address] [place] [address] Dr. Ibis JimenezNitrite Ql (U)NegativeNormalNEGATIVECherrington HospitalComment on above:Performed By: #### CVDTBH #### [facility] [address] [place] [address] Dr. Ibis JimenezpH (U)6.0 [pH]Normal5-9Cherrington HospitalComment on above: Performed By: #### CVDTBH #### [facility] [address] [place] [address] Dr. Ibis JimenezSPEC GRAVITY1.928Uotmsr6.005-<=1.025The [facility] CenterComment on above:Performed By: #### CVDTBH #### [facility] [address] [place] [address] Dr. Ibis Quintanilla PROTEINNegativermalNEGATIVE/ TRACECherrington Hospital Comment on above:Performed By: #### CVDTBH #### [facility] [address] [place] [address] Dr. Ibis Curtis MICRO INDNOT INDICATEDLima City HospitalComment on above:Performed By: #### CVDTBH #### [facility] [address] [place] [address] Dr. Ibis Ray Qn (U)0.2 {Dinorah'U}/dLNormal0.2 - 1.0The [facility] CenterComment on above:Performed By: #### CVDTBH #### [facility] [address] [place] [address] Dr. Ibis Alexis AUTO DIFFon 43-19-6543KNJE #0.0 103/ulNormal0.0-0.1The [facility] CenterComment on above:Performed By: #### BMP #### [facility] [address] [place] [address] Dr. Ibis JimenezBasophils/100 WBC (Bld)0.3 %Normal0.2-2.0[facility] Comment on above:Performed By: #### BMP #### [facility] [address] [place] [address] Dr. Ibis Acevedo #0.3 103/ulNormal0.0-0.7The [facility] CenterComment on above: Performed By: #### BMP #### [facility] [facility] [address] [place] [address] Dr. Ibis Rojasosinophils/100 WBC (Bld)4.1 %Normal0.9-7.0[facility] Comment on above:Performed By: #### BMP #### [facility] [address] [place] [address] Dr. Ibis Rojasrythrocyte distribution width (RBC) [Ratio]13.2 %[place]79.0-15.0 [facility] HospitalComment on above:Performed By: #### BMP #### [facility] [address] [place] [address] Dr. Ibis JimenezHematocrit (Bld) [Volume fraction]35.7 %Critically low36.0-48.0 [facility] CenterComment on above:Performed By: #### BMP #### [facility] [address] [address] [address] Ibis JimenezHemoglobin (Bld) [Mass/Vol]11.6 g/dLCritically low12.0-16.0[facility] CenterComment on above:Performed By: #### BMP #### [facility] [address] [place] [address] Dr. Ibis Soto #0.02 10e3/ulNormal0.00-0.03[facility] CenterComment on above:Performed By: #### BMP #### [facility] [address] [place] [address] Dr. Ibis Soto %0.3 %Normal0.0-0.5[facility] CenterComment on above: Performed By: #### BMP #### [facility] [address] [place] [address] Dr. Ibis Brenner #1.5 103/ulNormal1.2-3.8[facility] CenterComment on above:Performed By: #### BMP #### [facility] [address] [place] [address] Dr. Ibis Brennerhocytes/100 WBC (Bld)24.3 %Vdjwkj52.5-60.0[facility] CenterComment on above:Performed By: #### BMP #### [facility] [address] [place] [address] Dr. Ibis NewtonUAL DIFF REQNONormalThe [facility] CenterComment on above: Performed By: #### BMP #### [facility] [address] [place] [address] Dr. [facility]bis [facility]enezMON[facility]FI[facility] (RBC) [Entitic mass]28.9 kmMzljxx80.7-34.0[facility] CenterComment on above:Performed By: #### BMP #### [facility] [address] [place] [address] Dr. Ibis Frank (RBC) [Mass/Vol]32.5 g/vWPspkpk37.9-35.2[facility] CenterComment on above:Performed By: #### BMP #### [facility] [address] [address] [address] Ibis FrankV (RBC) [Entitic vol]89.0 kBVjebzt10.0-99.0[facility] CenterComment on above:Performed By: #### BMP #### [facility] [address] [place] [address] Dr. Ibis Magallanes #0.5 103/ulNormal0.3-0.8[facility] CenterComment on above:Performed By: #### BMP #### [facility] [address] [place] [address] Dr. Ibis Barbaocytes/100 WBC (Bld)7.3 %Normal1.7-12.0[facility] Comment on above:Performed By: #### BMP #### [facility] [address] [place] [address] Dr. Ibis Schultz #4.0 103/ulNormal1.4-6.5[facility] CenterComment on above:Performed By: #### BMP #### [facility] [address] [place] [address] Dr. Ibis Hiutrophils/100 WBC (Bld)63.7 %Xnawkj26.0-75.0[facility] CenterComment on above:Performed By: #### BMP #### [facility] [address] [place] [address] Dr. Ibis Olsenlet mean volume (Bld) [Entitic vol]9.7 fLNormal9.5-13.5[facility] CenterComment on above:Performed By: #### BMP #### [facility] [address] [place] [address] Dr. Ibis JimenezPLT237 103/dhOqtqyn594-843Zpr [facility] CenterComment on above: Performed By: #### BMP #### [facility] [address] [place] [address] Dr. Ibis JimenezRBC4.01 106/ulCritically low4.20-5.40[facility] CenterComment on above:Performed By: #### BMP #### [facility] [address] [place] [address] Dr. Ibis JimenezWBC6.3 103/ulNormal4.0-11.0[facility] CenterComment on above: Performed By: #### BMP #### [facility] [address] [place] [address] Dr. Ibis JimenezLACTATE/LACTIC ACIDon 69-40-5782Mdtttem [Moles/Vol]1.2 mmol/L Normal0.4-1.9[facility] CenterComment on above:Performed By: #### AMM #### [facility] [address] [place] [address] Dr. Ibis Lin 86-72-5562Dacw nitrogen [Mass/Vol]7.0 mg/dLNormal7.0-18.0 [facility] CenterComment on above:Performed By: #### CVDTBH #### [facility] [address] [place] [address] Dr. Ibis GonzalesC AUTO DIFFon 89-24-7732YZMD #0.0 103/ulNormal0.0-0.1[facility] CenterComment on above:Performed By: #### AMM #### [facility] [address] [place] [address] Dr. Ibis JimenezBasophils/100 WBC (Bld)0.2 %Normal0.2-2.0[facility] Comment on above:Performed By: #### AMM #### [facility] [address] [place] [address] Dr. Ibis Acevedo #0.0 103/ulNormal0.0-0.7[facility] CenterComment on above: Performed By: #### AMM #### [facility] [address] [place] [address] Dr. Ibis Rojasosinophils/100 WBC (Bld)0.3 %Critically low0.9-7.0[facility] CenterComment on above:Performed By: #### AMM #### [facility] [address] [place] [address] Dr. Ibis Rojasrythrocyte distribution width (RBC) [Ratio]12.7 %Fuswrr18.0-15.0 [facility] CenterComment on above:Performed By: #### AMM #### [facility] [address] [place] [address] Dr. Ibis JimenezHematocrit (Bld) [Volume fraction]43.4 %Tvsair95.0-48.0[facility] CenterComment on above:Performed By: #### AMM #### [facility] [address] [place] [address] Dr. Ibis JimenezHemoglobin (Bld) [Mass/Vol]14.6 g/qZGftgbv12.0-16.0[facility] CenterComment on above:Performed By: #### AMM #### [facility] [address] [place] [address] Dr. Ibis Soto #0.03 10e3/ulNormal0.00-0.03[facility]Com[facility] on above:Performed By: #### AMM #### [facility] [address] [place] [address] Dr. Ibis Soto %0.3 %Normal0.0-0.5[facility]Com[facility] on above: Performed By: #### AMM #### [facility] [address] [place] [address] Dr. Ibis BrennerH #1.2 103/ulNormal1.2-3.8[facility]Com[facility] on above:Performed By: #### AMM #### [facility] [address] [place] [address] Dr. Ibis Vuongmphocytes/100 WBC (Bld)11.6 %Critically low20.5-60.0[facility]Com[facility] on above:Performed By: #### AMM #### [facility] [address] [place] [address] Dr. Ibis NewtonUAL DIFF REQNONormalThe [facility] CenterComment on above: Performed By: #### AMM #### [facility] [address] [address] [address] Ibis Frank (RBC) [Entitic mass]28.5 hrMuvnps27.7-34.0[facility] CenterComment on above:Performed By: #### AMM #### [facility] [address] [place] [address] Dr. Ibis Frank (RBC) [Mass/Vol]33.6 g/yNRnrsnk17.9-35.2[facility] CenterComment on above:Performed By: #### AMM #### [facility] [address] [place] [address] Dr. Ibis FrankV (RBC) [Entitic vol]84.6 oUKtqnvg21.0-99.0[facility] CenterComment on above:Performed By: #### AMM #### [facility] [address] [place] [address] Dr. Ibis Magallanes #0.6 103/ulNormal0.3-0.8[facility] CenterComment on above:Performed By: #### AMM #### [facility] [address] [place] [address] Dr. Ibis Barbaocytes/100 WBC (Bld)5.9 %Normal1.7-12.0[facility] Comment on above:Performed By: #### AMM #### [facility] [address] [place] [address] Dr. Ibis Schultz #8.2 103/ulCritically high1.4-6.5[facility] Comment on above:Performed By: #### AMM #### [facility] [address] [place] [address] Dr. Ibis iHutrophils/100 WBC (Bld)81.7 %Critically high43.0-75.0[facility] CenterComment on above:Performed By: #### AMM #### [facility] [address] [place] [address] Dr. Ibis Olsenlet mean volume (Bld) [Entitic vol]9.8 fLNormal9.5-13.5The [facility] Centerment on above:Performed By: #### AMM #### [facility] [address] [place] [address] Dr. Ibis JimenezPLT264 103/fkNrdemp759-938Enq [facility] CenterComselect [facility] on above: Performed By: #### AMM #### [facility] [address] [place] [address] Dr. Ibis JimenezRBC5.13 106/ulNormal4.20-5.40The [facility] CenterComment on above:Performed By: #### AMM #### [facility] [address] [place] [address] Dr. Ibis HamiltonBC10.1 103/ulNormal4.0-11.0The [facility] Centerment on above:Performed By: #### AMM #### [facility] [address] [place] [address] Dr. Ibis JimenezCREATININEon 10-00-6715Lshujixpam [Mass/Vol]0.69 mg/dLNormal 0.55-1.02[facility] CenterComment on above:Performed By: #### CVDTBH #### [facility] [address] [place] [address] Dr. Ibis RojasGFR-AF TRINIDADIAN>60Normal>=60The [facility] CenterComselect [facility] on above:Performed By: #### CVDTBH #### [facility] [address] [place] [address] Dr. Ibis RojasGFR-NON AF TRINIDADIAN>60Normal>=60The [facility] Centerment on above:Performed By: #### CVDTBH #### [facility] [address] [place] [address] Dr. Ibis GonzalesC AUTO DIFFon 24-36-9443PQYX #0.0 103/ulNormal0.0-0.1The [facility] on above:Performed By: #### AMM #### [facility] [address] [place] [address] Dr. Ibis JimenezBasophils/100 WBC (Bld)0.3 %Normal0.2-2.0[facility] Comment on above:Performed By: #### AMM #### [facility] [address] [place] [address] Dr. Ibis Acevedo #0.1 103/ulNormal0.0-0.7The [facility] CenterComment on above: Performed By: #### AMM #### [facility] [address] [place] [address] Dr. Ibis Rojasosinophils/100 WBC (Bld)1.9 %Normal0.9-7.0[facility] Comment on above:Performed By: #### AMM #### [facility] [address] [place] [address] Dr. Ibis Rojasrythrocyte distribution width (RBC) [Ratio]12.7 %Wssjmb39.0-15.0 [facility] CenterComment on above:Performed By: #### AMM #### [facility] [address] [place] [address] Dr. Ibis JimenezHematocrit (Bld) [Volume fraction]38.1 %Xyhvqo06.0-48.0[facility] CenterComment on above:Performed By: #### AMM #### [facility] [address] [place] [address] Dr. Ibis JimenezHemoglobin (Bld) [Mass/Vol]12.7 g/wPChdijw84.0-16.0[facility] CenterComment on above:Performed By: #### AMM #### [facility] [address] [place] [address] Dr. Ibis Soto #0.02 10e3/ulNormal0.00-0.03[facility] CenterComment on above:Performed By: #### AMM #### [facility] [address] [place] [address] Dr. Ibis Soto %0.3 %Normal0.0-0.5The [facility] CenterComment on above: Performed By: #### AMM #### [facility] [address] [place] [address] Dr. Ibis Monsalve #1.9 103/ulNormal1.2-3.8[facility] CenterComment on above:Performed By: #### AMM #### [facility] [address] [place] [address] Dr. Ibis Vuongmphocytes/100 WBC (Bld)30.5 %Ktgjie02.5-60.0[facility] CenterComment on above:Performed By: #### AMM #### [facility] [address] [place] [address] Dr. Ibis NewtonUAL DIFF REQNONormalThe [facility] CenterComment on above: Performed By: #### AMM #### [facility] [address] [place] [address] Dr. Ibis Frank (RBC) [Entitic mass]28.3 hnLbeibj84.7-34.0[facility] CenterComment on above:Performed By: #### AMM #### [facility] [address] [place] [address] Dr. Ibis Frank (RBC) [Mass/Vol]33.3 g/sFEfnlao17.9-35.2The [facility] Centerment on above:Performed By: #### AMM #### [facility] [address] [place] [address] Dr. Ibis Frank (RBC) [Entitic vol]85.0 mXGfvrbq95.0-99.0The [facility] CenterComment on above:Performed By: #### AMM #### [facility] [address] [place] [address] Dr. Ibis Magallanes #0.3 103/ulNormal0.3-0.8The [facility] CenterComment on above:Performed By: #### AMM #### [facility] [address] [place] [address] Dr. Ibis Barbaocytes/100 WBC (Bld)5.2 %Normal1.7-12.0[facility] Comment on above:Performed By: #### AMM #### [facility] [address] [place] [address] Dr. Ibis Schultz #3.9 103/ulNormal1.4-6.5The [facility] CenterComment on above:Performed By: #### AMM #### [facility] [address] [place] [address] Dr. Ibis Hiutrophils/100 WBC (Bld)61.8 %Fjfgem03.0-75.0[facility] CenterComment on above:Performed By: #### AMM #### [facility] [address] [place] [address] Dr. Ibis JimenezPlatelet mean volume (Bld) [Entitic vol]9.7 fLNormal9.5-13.5The [facility] CenterComment on above:Performed By: #### AMM #### [facility] [address] [place] [address] Dr. Ibis JimenezPLT255 103/fiUedqoi793-067Xnv [facility] CenterComment on above: Performed By: #### AMM #### [facility] [address] [place] [address] Dr. Ibis JimenezRBC4.48 106/ulNormal4.20-5.40The [facility] on above:Performed By: #### AMM #### [facility] [address] [place] [address] Dr. Ibis JimenezWBC6.3 103/ulNormal4.0-11.0The [facility] CenterCom[facility] on above: Performed By: #### AMM #### [facility] [address] [place] [address] Dr. Ibis JimenezPREG HCG QUALon 19-74-2430BFYTROMJP, QUALNegativeNormalNEGATIVE The [facility] CenterComment on above:Performed By: #### MONO #### [facility] [address] [place] [address] Dr. Ibis JimenezCovid-19 PCR (CVDTBH)on 09-57-0738NKFS-CoV-2 (COVID-19) RNA SAURABH+probe Ql (Unsp spec)Not detectedNormalNOT DETECTEDThe [facility] Comment on above:Result Comment: This test is not yet approved or cleared by the [place] FDA. When there are no FDA-approved or cleared tests available, and other criteria are met, FDA can make tests available under an emergency access mechanism called an Emergency Use Authorization (EUA). The EUA for this test is supported by the [place] of Health and Human Service's (HHS's) declaration [...] consistent with SARS-CoV-2.Performed By: #### BMP #### [facility] [address] [address] [address] Ibis JimenezTYPE AND SCREENon 35-41-9928PQKA AND SCREENNegativeNormalThe [facility] CenterComment on above:Performed By: #### BMP #### [facility] [address] [address] [address] Ibis JimenezCovid-19 PCR ([facility])on 36-32-1898ZPDG-CoV-2 (COVID-19) RNA SAURABH+probe Ql (Unsp spec)Not detectedNormalNOT DETECTEDThe [facility] Comment on above:Result Comment: This test is not yet approved or cleared by the [place] FDA. When there are no FDA-approved or cleared tests available, and other criteria are met, FDA can make tests available under an emergency access mechanism called an Emergency Use Authorization (EUA). The EUA for this test is supported by the [place] of Health and Human Service's (HHS's) declaration [...] consistent with SARS-CoV-2.Performed By: #### CVDTBH #### [facility] [address] [place] [address] Dr. Ibis JimenezTYPE AND SCREENon 82-95-9574TDHJ AND SCREENNegativeNormalThe [facility] CenterComment on above:Performed By: #### BMP #### [facility] [address] [place] [address] Dr. Ibis JimenezCHLAMYDIA/GONOCOCCUS SAURABH (SWAB/URINE/PAPon 32-14-7412Jyplurvgx trachomatis, NAANegativeNormalNegativeThe [facility] CenterComment on above: Performed By: #### ACET, SALYC #### [facility] [address] [place] [address] Dr. Ibis JimenezNeisseria gonorrhoeae, NAANegativeNormalNegativeThe [facility] CenterComment on above:Performed By: #### ACET, SALYC #### [facility] [address] [place] [address] Dr. Ibis Alexis AUTO DIFFon 18-79-7132GFBW #0.0 103/ulNormal0.0-0.1The [facility] CenterComment on above:Performed By: #### CVDTBH #### [facility] [address] [place] [address] Dr. Ibis JimenezBasophils/100 WBC (Bld)0.3 %Normal0.2-2.0The [facility] Comment on above:Performed By: #### CVDTBH #### [facility] [address] [place] [address] Dr. Baumann ChangEO #0.2 103/ulNormal0.0-0.7The [facility] CenterComment on above: Performed By: #### CVDTBH #### [facility] [address] [place] [address] Dr. Ibis Rojasosinophils/100 WBC (Bld)2.5 %Normal0.9-7.0The [facility] Comment on above:Performed By: #### CVDTBH #### [facility] [address] [place] [address] Dr. Ibis Rojasrythrocyte distribution width (RBC) [Ratio]13.0 %Lblnqk91.0-15.0 [facility] CenterComment on above:Performed By: #### CVDTBH #### [facility] [address] [place] [address] Dr. Ibis JimenezHematocrit (Bld) [Volume fraction]38.1 %Sebatc91.0-48.0The [facility] CenterComment on above:Performed By: #### CVDTBH #### [facility] [address] [place] [address] Dr. Ibis JimenezHemoglobin (Bld) [Mass/Vol]12.8 g/qPTpojzb08.0-16.0The [facility] CenterComment on above:Performed By: #### CVDTBH #### [facility] [address] [place] [address] Dr. Ibis Soto #0.02 10e3/ulNormal0.00-0.03The [facility] CenterComment on above:Performed By: #### CVDTBH #### [facility] [address] [place] [address] Dr. Ibis Soto %0.3 %Normal0.0-0.5The [facility] CenterComment on above: Performed By: #### CVDTBH #### [facility] [address] [place] [address] Dr. Ibis BrennerH #1.5 103/ulNormal1.2-3.8The [facility] CenterComment on above:Performed By: #### CVDTBH #### [facility] [address] [place] [address] Dr. Ibis Vuongmphocytes/100 WBC (Bld)22.5 %Wlzfes79.5-60.0The [facility] CenterComment on above:Performed By: #### CVDTBH #### [facility] [address] [place] [address] Dr. Ibis Viera DIFF REQNONormalThe [facility] CenterComment on above: Performed By: #### CVDTBH #### [facility] [address] [place] [address] Dr. Ibis Frank (RBC) [Entitic mass]28.6 phWxxfzl97.7-34.0The [facility] CenterComment on above:Performed By: #### CVDTBH #### [facility] [address] [place] [address] Dr. Ibis Frank (RBC) [Mass/Vol]33.6 g/cPKbfrat45.9-35.2The [facility] CenterComment on above:Performed By: #### CVDTBH #### [facility] [address] [place] [address] Dr. Ibis Dan (RBC) [Entitic vol]85.0 uVTeigqq83.0-99.0The [facility] CenterComment on above:Performed By: #### CVDTBH #### [facility] [address] [place] [address] Dr. Ibis Magallanes #0.4 103/ulNormal0.3-0.8The [facility] CenterComment on above:Performed By: #### CVDTBH #### [facility] [address] [place] [address] Dr. Ibis Barbaocytes/100 WBC (Bld)6.3 %Normal1.7-12.0The [facility] Comment on above:Performed By: #### CVDTBH #### [facility] [address] [place] [address] Dr. Ibis Schultz #4.6 103/ulNormal1.4-6.5The [facility] CenterComment on above:Performed By: #### CVDTBH #### [facility] [address] [place] [address] Dr. Ibis Hiutrophils/100 WBC (Bld)68.1 %Pfziyl18.0-75.0The [facility] Centerment on above:Performed By: #### CVDTBH #### [facility] [address] [place] [address] Dr. Ibis JimenezPlatelet mean volume (Bld) [Entitic vol]9.8 fLNormal9.5-13.5The [facility] CenterComment on above:Performed By: #### CVDTBH #### [facility] [address] [place] [address] Dr. Ibis JimenezPLT243 103/hbNoghtu400-762Urc [facility] on above: Performed By: #### CVDTBH #### [facility] [address] [place] [address] Dr. Ibis JimenezRBC4.48 106/ulNormal4.20-5.40The [facility] on above:Performed By: #### CVDTBH #### [facility] [address] [place] [address] Dr. Ibis JimenezWBC6.7 103/ulNormal4.0-11.0The [facility] on above: Performed By: #### CVDTBH #### [facility] [address] [place] [address] Dr. Ibis JimenezCT ABD/PELVIS WO [facility]on 62-36-8760ZG ABD/PELVIS WO CONTECHNIQUE: CT abdomen and pelvis. [...] Electronically authenticated by: NELI COTTO Date: 2021-08-14 18:00[facility] URINE PROFILEon 90-23-9136Kpxfhzlqn Ql (U)SMALLAbnormal NEGATIVECherrington HospitalComment on above:Performed By: #### BMP #### [facility] [address] [place] [address] Dr. Ibis Sage (U)CLEARNormalCLEARCherrington HospitalComment on above: Performed By: #### BMP #### [facility] [address] [place] [address] Dr. Ibis Rivera (U)YELLOWNormalYELLOWCherrington HospitalComment on above: Performed By: #### BMP #### [facility] [address] [place] [address] Dr. Ibis Chang micrscopic examination will be performed if indicated. NormalCherrington HospitalComment on above:Performed By: #### BMP #### [facility] [address] [place] [address] Dr. Ibis JimenezGlucose Ql (U)NegativeNormalNEGATIVECherrington HospitalComment on above:Performed By: #### BMP #### [facility] [address] [place] [address] Dr. Ibis JimenezHemoglobin Ql (U)SMALLAbnormalNEGATIVECherrington Hospital Comment on above:Performed By: #### BMP #### [facility] [address] [address] [address] Ibis Baumann Ql (U)TRACEAbnormalNEGATIVEThe White Heath HospitalComment on above:Performed By: #### BMP #### [facility] [address] [place] [address] Dr. Ibis JimenezLEUKOCYTESNegativeNormalNEGATIVEThe White Heath HospitalComment on above:Performed By: #### BMP #### [facility] [address] [address] [address] Ibis Avalostrite Ql (U)NegativeNormalNEGATIVEThe White Heath HospitalComment on above:Performed By: #### BMP #### [facility] [address] [place] [address] Dr. Ibis JimenezpH (U)5.5 [pH]Normal5-9The [facility] CenterComment on above: Performed By: #### BMP #### [facility] [address] [place] [address] Dr. Ibis JimenezSPEC GRAVITY>=1.923Oyvpsleh4.005-<=1.025The [facility] on above:Performed By: #### BMP #### [facility] [address] [place] [address] Dr. Ibis Quintanilla PROTEINTRACENormalNEGATIVE/ TRACEThe [facility] CenterComment on above:Performed By: #### BMP #### [facility] [address] [place] [address] Dr. Ibis Curtis MICRO INDINDICATEDNormalThe White Heath HospitalComment on above: Performed By: #### BMP #### [facility] [address] [place] [address] Dr. Ibis Lorenzbilinogen Qn (U)1.0 {Dinorah'U}/dLNormal0.2 - 1.0The [facility] CenterComment on above:Performed By: #### BMP #### [facility] [address] [place] [address] Dr. Ibis JimenezPREGNANCY URon [id number], QUALNegativeNormalNEGATIVEThe [facility] CenterComment on above:Performed By: #### BMP #### [facility] [address] [address] [address] Ibis ChristinaF CHEM 8 (BAS METB)on [id number] gap [Moles/Vol]15.3 mmol/LNormalThe [facility] CenterComment on above:Performed By: #### BMP #### [facility] [address] [place] [address] Dr. Ibis JimenezCalcium [Mass/Vol]8.4 mg/dLCritically low8.5-10.1The [facility] CenterComment on above:Performed By: #### BMP #### [facility] [address] [place] [address] Dr. Ibis JmienezChloride [Moles/Vol]106 mmol/BYqqhau10-923Swu [facility] Comment on above:Performed By: #### BMP #### [facility] [address] [place] [address] Dr. Ibis JimneezCO2 [Moles/Vol]22.3 mmol/PCuzxsb89.0-32.0The [facility] Comment on above:Performed By: #### BMP #### [facility] [address] [place] [address] Dr. Ibis JimenezCreatinine [Mass/Vol]0.75 mg/dLNormal0.55-1.02The [facility] CenterComment on above:Performed By: #### BMP #### [facility] [address] [place] [address] Dr. Ibis RojasGFR-AF TRINIDADIAN>60Normal>=60The [facility] CenterComment on above:Performed By: #### BMP #### [facility] [address] [place] [address] Dr. Ibis RojasGFR-NON AF TRINIDADIAN>60Normal>=60The [facility] CenterComment on above:Performed By: #### BMP #### [facility] [address] [place] [address] Dr. Ibis JimenezGlucose [Mass/Vol]107 mg/dLCritically dele54-259Rtq [facility] CenterComment on above:Performed By: #### BMP #### [facility] [address] [address] [address] Ibis JimenezPotassium [Moles/Vol]3.6 mmol/LNormal3.5-5.1[facility] Comment on above:Performed By: #### BMP #### [facility] [address] [address] [address] Ibis Potterdium [Moles/Vol]140 mmol/BYphisz860-598Ieh [facility] Comment on above:Performed By: #### BMP #### [facility] [address] [address] [address] Ibis JimenezUrea nitrogen [Mass/Vol]13.0 mg/dLNormal7.0-18.0Cherrington HospitalComment on above:Performed By: #### BMP #### [facility] [address] [address] [address] Ibis Lama nitrogen/Creatinine [Mass ratio]17.3 mg/mgNoProMedica Memorial HospitalComment on above:Performed By: #### BMP #### [facility] [address] [place] [address] Dr. Ibis CAINon [id number]adBAXK SEEN Cherrington HospitalComselect specialty hospital-[facility] on above:Performed By: #### BMP #### [facility] [address] [address] [address] Ibis Pettit identified Cx Nom (U)NOT INDICATEDNoProMedica Memorial HospitalComselect specialty hospital-[place] on above:Performed By: #### BMP #### [facility] [address] [address] [address] Ibis Baron SEENNormalNONE SEENCherrington HospitalComselect specialty hospital-[place] on above:Performed By: #### BMP #### [facility] [address] [address] [address] Ibis Oviedo LM Nom (Urine sed)NONE SEENNormalNONE SEENCherrington HospitalComselect specialty hospital-[place] on above:Performed By: #### BMP #### [facility] [address] [address] [address] Baumann ChangEpithelial cells LM Ql (Urine sed)MANYAbnormalNONE SEEN /RAREThe [facility] CenterComselect specialty hospital-[facility] on above:Performed By: #### BMP #### [facility] [address] [address] [address] Ibis GallegosCOUSSMALLAbnormalNONE SEENThe [facility] CenterComselect specialty hospital-[facility] on above:Performed By: #### BMP #### [facility] [address] [address] [address] Ibis JimenezZrbvnJKC0-4Idblexhn5-5Mil [facility] CenterComselect specialty hospital-[facility] on above:Performed By: #### BMP #### [facility] [address] [address] [address] Ibis JimenezWBC2-5AbnormalNONE SEENThe [facility] on above: Performed By: #### BMP #### [facility] [address] [address] [address] Ibis [facility]enezHARDIN [facility] Auto DifferentialOrdered By: Keven Ching on 12-24-2020 Absolute Eos #0.44[facility] CenterSemmx Phone: absolute Immature Granulocyte0.05[facility] CenterSemmx Phone: absolute Lymph #2.48[facility] CenterSemmx Phone: absolute Towns #0.55[facility] CenterSemmx Phone: basophils (Bld) [#/Vol]10*3/uLPremier Health Upper Valley Medical CenterSemmx Phone: basophils/100 WBC (Bld)0 %0 - 2 %[employer] Phone: differential TypeNOT REPORTEDPremier Health Upper Valley Medical CenterSemmx Phone: eosinophils/100 WBC (Bld)5 %High1 - 4 %[employer] Phone: Hematocrit (Bld) [Volume fraction]37.4 %36.3 - 47.1 % [employer] Phone: Hemoglobin.gastrointestinal spec 1 Ql (Stl)12.3 g/dL 11.9 - 15.1 g/dLPremier Health Upper Valley Medical CenterSemmx Phone: Immature granulocytes/100 WBC (Bld)1 %Dkyv6MsixqSemmx Phone: Interpretation and review of laboratory results AbnormalPremier Health Upper Valley Medical CenterSemmx Phone: Lymphocytes/100 WBC (Bld)30 %24 - 43 %[employer] Phone: MCH (RBC) [Entitic mass]28.5 pg25.2 - 33.5 pgPremier Health Upper Valley Medical CenterSemmx Phone: MCHC (RBC) [Mass/Vol]32.9 g/dL28.4 - 34.8 g/dLPremier Health Upper Valley Medical CenterSemmx Phone: MCV (RBC) [Entitic vol]86.8 fL82.6 - 102.9 fLPremier Health Upper Valley Medical CenterSemmx Phone: Monocytes/100 WBC (Bld)7 %3 - 12 %[employer] Phone: NRBC Automated0.00.0 per 100 WBCPremier Health Upper Valley Medical CenterSemmx Phone: platelet distribution width (Bld) [Ratio]12.7 %11.8 - 14.4 %[employer] Phone: Slatelet EstimateNOT REPORTEDPremier Health Upper Valley Medical CenterSemmx Phone: Llatelet mean volume (Bld) [Entitic vol]9.4 fL8.1 - 13.5 fLPremier Health Upper Valley Medical CenterSemmx Phone: Platelets (Bld) [#/Vol]252 10*3/uLPremier Health Upper Valley Medical CenterSemmx Phone: RBC (Bld) [#/Vol]4.31 10*6/uL3.95 - 5.11 m/[employer] Phone: RBC (Bld) [#/Vol]NOT REPORTEDAultman Orr[facility] Rece[facility] Work Phone: segmented neutrophils/100 WBC (Bld)57 %36 - 65 %[facility] Work Phone: segs Absolute4.78[facility] Work Phone: WBC (Bld) [#/Vol]8.3 10*3/uLAultman Orrville Hospital Rece[facility] Work Phone: WBC (Bld) [#/Vol]NOT REPORTEDAultman Orr[facility] Rece[facility] Work Phone: [facility] [employer] Work Phone: cBC with Diffon [id number]. Basophil<0.03Normal 0.00-0.20MerJ.W. Ruby Memorial Hospital HospitalComment on above:Performed By: #### CMPX, CDP #### [address] [place], [facility]83 Telehealth Case Manager: Wendy Elder.Imm.Granulocyte0.05 k/uLNormal0.00-0.30[facility] HospitalComment on above:Performed By: #### CMPX, CDP #### [address] [place] [address] Telehealth Case Manager: Wendy Elder.Neutrophil (Seg)4.78 k/uLNormal1.50-8.10[facility] HospitalComment on above:Performed By: #### CMPX, CDP #### [address] [place], [place] [address]83 Telehealth Case Manager: Souleymane Pineda MDBasophils/100 WBC (Bld)0 %Normal0-2[facility] HospitalComment on above:Performed By: #### CMPX, CDP #### [address] [place], [place] [address]383 Telehealth Case Manager: Souleymane Pineda MDEosinophils (Bld) [#/Vol]0.44 10*3/uLNormal 0.00-0.44[facility] HospitalComment on above:Performed By: #### CMPX, CDP #### [address] [place] [address] Telehealth Case Manager: Souleymane Pineda MDEosinophils/100 WBC (Bld)5 %High1-4[facility] HospitalComment on above:Performed By: #### CMPX, CDP #### [address] [place] [address] Telehealth Case Manager: Souleymane Pineda MDErythrocyte distribution width (RBC) [Ratio]12.7 % Lmalgj23.8-14.4[facility] HospitalComment on above:Performed By: #### CMPX, CDP #### [address] [place] [address] Telehealth Case Manager: Souleymane Pineda MDHematocrit (Bld) [Volume fraction]37.4 %Normal 36.3-47.1[facility] HospitalComment on above:Performed By: #### CMPX, CDP #### [address] [place] [address] Telehealth Case Manager: Souleymane Pineda MDHemoglobin (Bld) [Mass/Vol]12.3 g/dLNormal 11.9-15.1MMemorial Health [facility] HospitalComment on above:Performed By: #### CMPX, CDP #### [address] [place] [address] Telehealth Case Manager: Souleymane Pineda MDImmature granulocytes/100 WBC (Bld)1 %Snya3MddwePaulding County Hospital HospitalComment on above:Performed By: #### CMPX, CDP #### [address] [place] [address] Telehealth Case Manager: Souleymane Pineda MDLymphocytes (Bld) [#/Vol]2.48 10*3/uLNormal 1.10-3.70[facility]ike Medical CenterComment on above:Performed By: #### CMPX, CDP #### [address] [place], [place] [address]83 Telehealth Case Manager: Souleymane Pineda MDLymphocytes/100 WBC (Bld)30 %Ivfzay95-19DttpzAdena Pike Medical CenterComment on above:Performed By: #### CMPX, CDP #### [address] [place] [address] Telehealth Case Manager: JUNAID ElderCH (RBC) [Entitic mass]28.5 kyVkrzvs16.2-33.5 [facility] Medical CenterComment on above:Performed By: #### CMPX, CDP #### [address] [place], [place] [address]383 Telehealth Case Manager: LASHAWN ElderC (RBC) [Mass/Vol]32.9 g/tHNouyvk79.4-34.8[facility] Medical CenterComment on above:Performed By: #### CMPX, CDP #### [address] [place], [place] [address]183 Telehealth Case Manager: JUNAID ElderCV (RBC) [Entitic vol]86.8 eFSwfnsr17.6-102.9 [facility] HospitalComment on above:Performed By: #### CMPX, CDP #### [address] [place] [address] Telehealth Case Manager: JUNAID Elderonocytes (Bld) [#/Vol]0.55 10*3/uLNormal0.10-1.20 [facility] Medical CenterComment on above:Performed By: #### CMPX, CDP #### [address] [place] [address] Telehealth Case Manager: JUNAID Elderonocytes/100 WBC (Bld)7 %Normal3-12[facility] Medical CenterComment on above:Performed By: #### CMPX, CDP #### [facility] [address] [place] [address] [place] [address] Telehealth Case Manager: Souleymane Pineda MDNeutrophil (Seg)57 %Guokvi88-18Dljiy [facility] HospitalComment on above:Performed By: #### CMPX, CDP #### [address] [place] [address] Telehealth Case Manager: COURTNEY Elder Automated0.0 per 100 WBCNormal0.0[facility] Medical CenterComment on above:Performed By: #### CMPX, CDP #### [address] [place], [place] [address] Telehealth Case Manager: Greta Elder mean volume (Bld) [Entitic vol]9.4 fL Normal8.1-13.5[facility] Medical CenterComment on above:Performed By: #### CMPX, CDP #### [address] [place], [place] [address] Telehealth Case Manager: Kaylee Elderteyanni (Bld) [#/Vol]252 10*3/wHGligad025-384 [facility] HospitalComment on above:Performed By: #### CMPX, CDP #### [facility] [address] [place] [address] Dr. [place], [place] [address]83 Telehealth Case Manager: FRANCISCO ElderBC (Bld) [#/Vol]4.31 10*6/uLNormal3.95-5.11[facility] HospitalComment on above:Performed By: #### CMPX, CDP #### [address] [place], [place] [address]83 Telehealth Case Manager: JESSE ElderBC (Bld) [#/Vol]8.3 10*3/uLNormal3.5-11.3[facility] HospitalComment on above:Performed By: #### CMPX, CDP #### [address] [place], [place] 401[address]83 Telehealth Case Manager: Amaris Elder Diff PerformedNOT REPORTEDNormalPaulding County Hospital HospitalComment on above:Performed By: #### CMPX, CDP #### [address] [place] [address] Telehealth Case Manager: Kaylee Eldertelet CommentNOT REPORTEDNormalPaulding County Hospital HospitalComment on above:Performed By: #### CMPX, CDP #### [address] [place], [place] [address]183 Telehealth Case Manager: SILVIA Elder morphology finding Nom (Bld)NOT REPORTEDNormal [facility] HospitalComment on above:Performed By: #### CMPX, CDP #### [address] [place], [place] [address]83 Telehealth Case Manager: RENETTA Elder MorphologyNOT REPORTEDNormalPaulding County Hospital HospitalComment on above:Performed By: #### CMPX, CDP #### [address] [place], [place] [address] Telehealth Case Manager: BEE Elder HEAD WO CONTRASTon [id number] HEAD WO CONTRASTEXAMINATION: CT OF THE HEAD [...] the orbits demonstrate no acute abnormality. SINUSES: Kvhy-pu-rphnvhbx paranasal sinus mucosal thickening. SOFT TISSUES/SKULL: No acute abnormality of the visualized skull or soft tissues. IMPRESSION: No acute intracranial abnormality. Interpreted by: Edwin Bentley MD Signed by: Edwin Bentley MD 12/24/20 Final resultNormalAdena Pike Medical CenterCT Head WO ContrastOrdered By: Keven Ching on [id number] acute intracranial abnormality.[employer] Phone: eXAMINATION: CT OF THE HEAD WITHOUT [...] of theorbits demonstrate no acute abnormality. SINUSES: Earq-ha-abogiewj paranasal sinus mucosal thickening. SOFT TISSUES/SKULL: No acute abnormality of the visualized skull or soft tissues.[employer] Phone: eruben [facility]b Incoming Radiant Results From [employer] - 12/24/2020 8:49 PM EDT EXAMINATION: CT [...] the orbits demonstrate no acute abnormality. SINUSES: Fjew-th-dyryibzh paranasal sinus mucosal thickening. SOFT TISSUES/SKULL: No acute abnormality of the visualized skull or soft tissues. IMPRESSION: No acute intracranial abnormality. [facility] Work Phone: [facility] Work Phone: comp Metabolic Pr/rfx MGon 42-54-4523Ktiaqkevk [Mass/Vol]mg/dLLow0.3-1.2MMemorial Health System [facility] HospitalComment on above:Performed By: #### AGUSTÍN, CDP #### [address] [place] [address] Telehealth Case Manager: Souleymane Pineda MD(cont.)[facility] Community HospitalComment on above:Result Comment: Average GFR for 20-29 years old: 116 mL/min/1.73sq m Chronic Kidney Disease: <60 mL/min/1.73sq m Kidney failure: <15 mL/min/1.73sq m eGFR calculated using average adult body mass. Additional eGFR calculator available at: http://www.[employer]/multiple_crcl_2012.htmPerformed By: #### AGUSTÍN, CDP #### [address] [place] [address] Telehealth Case Manager: Souleymane Pineda MDAlbumin [Mass/Vol]4.0 g/dLNormal3.5-5.2MC[facility] Mentor HospitalComment on above:Performed By: #### KEKEX, CDP #### [address] [place] [address] Telehealth Case Manager: Souleymane Sturtz, MDAlbumin/Glob Ratio1.3Hmqycb6.0-2.5MerJ.W. Ruby Memorial Hospital HospitalComment on above:Performed By: #### CMPX, CDP #### [address] [place], [place] [address]83 Telehealth Case Manager: Jennifer Elderkaline Phos90 U/NJttigf21-878JllqzAdena Pike Medical CenterComment on above:Performed By: #### CMPX, CDP #### [facility] [address] [place] [address] [place] [address] Telehealth Case Manager: Souleymane Pineda MDALT [Catalytic activity/Vol]40 U/LHigh5-33MerWindham HospitalComment on above:Performed By: #### CMPX, CDP #### [address] [place] [address] Telehealth Case Manager: Souleymane Pineda MDAnion gap [Moles/Vol]11 mmol/LNormal9-17[facility] HospitalComment on above:Performed By: #### CMPX, CDP #### [address] [place] [address] Telehealth Case Manager: Souleymane Pineda MDAST [Catalytic activity/Vol]19 U/LNormal<32MerWindham HospitalComment on above:Performed By: #### CMPX, CDP #### [facility] [address] [place] [address] [place] [address] Telehealth Case Manager: Souleymane Pineda MDBUN/CRE Zyzni41Nuoyzo8-09Hnksp [facility] Comment on above:Performed By: #### CMPX, CDP #### [facility] [address] [place] [address] [place] [address] Telehealth Case Manager: Souleymane Pineda MDCalcium [Mass/Vol]8.9 mg/dLNormal8.6-10.4[facility] HospitalComment on above:Performed By: #### CMPX, CDP #### [address] [place] [address] Telehealth Case Manager: CLARK Elderhloride [Moles/Vol]104 mmol/AUpjqdu63-031Qpyqv [facility] HospitalComment on above:Performed By: #### CMPX, CDP #### [address] [place], [place] 0540383 Telehealth Case Manager: Souleymane Pineda MDCO2 [Moles/Vol]24 mmol/GOrbubm58-78Dpxfd [facility] HospitalComment on above:Performed By: #### CMPX, CDP #### [address] [place], [place] [address]83 Telehealth Case Manager: CLARK Elderreatinine [Mass/Vol]0.60 mg/dLNormal0.50-0.90 [facility]ike Medical CenterComment on above:Performed By: #### CMPX, CDP #### [address] [place], [place] 2341583 Telehealth Case Manager: Souleymane Pineda MDGFR, Amer>60Normal>60[facility] Centercy [facility] Comment on above:Performed By: #### CMPX, CDP #### [address] [place], [place] [address]83 Telehealth Case Manager: Souleymane Pineda MDGFR,non Amer>60Normal>60[facility] HospitalComment on above:Performed By: #### CMPX, CDP #### [address] [place] [address] Telehealth Case Manager: Souleymane Pineda MDGlucose [Mass/Vol]91 mg/fLVlemaw37-30Uiwkr Pixley HospitalComment on above:Performed By: #### CMPX, CDP #### [address] [place], [place] [address] Telehealth Case Manager: Souleymane Pineda MDPotassium [Moles/Vol]4.0 mmol/LNormal3.7-5.3MMemorial Health System [facility] HospitalComment on above:Performed By: #### CMPX, CDP #### [address] [place] [address] Telehealth Case Manager: MAGED Elderrotein [Mass/Vol]6.7 g/dLNormal6.4-8.3MCleveland Clinic Mentor HospitalComment on above:Performed By: #### CMPX, CDP #### [address] [place] [address] Telehealth Case Manager: ALEX Elderodium [Moles/Vol]139 mmol/KTepxkz928-909XmppyAdena Pike Medical CenterComment on above:Performed By: #### CMPX, CDP #### [address] [place] [address] Telehealth Case Manager: ALEX Eldertaging:NormalAdena Pike Medical CenterComment on above:Result Comment: Stage 1: Some kidney damage normal GFR Stage 2: Mild kidney damage GFR 60-89 Stage 3: Moderate kidney damage GFR 30-59 Stage 4: Severe kidney damage GFR 15-29 Stage 5: Severe kidney damage GFR <15 ESRD - chronic treatment by dialysis or transplantPerformed By: #### CMPX, CDP #### [address] [place] [address] Telehealth Case Manager: Souleymane Pineda MDUrea nitrogen [Mass/Vol]9 mg/dLNormal6-20A[facility] Medical CenterComment on above:Performed By: #### CMPX, CDP #### [address] [place] [address] Telehealth Case Manager: CLARK Elderomprehensive Metabolic Panel w/ Reflex to MG Ordered By: Keven Ching on 64-51-5612Pedfnuw [Mass/Vol]4 g/dL3.5 - 5.2 g/dL [facility] Work Phone: albumin/Globulin [Mass ratio]1.5 {ratio}[facility] Work Phone: QLP (Bld) [Catalytic activity/Vol]90 U/L35 - 104 U/L [facility] [employer] Work Phone: MLT [Catalytic activity/Vol]40 U/LHigh5 - 33 U/LMmetrohealth main campus medical centery Receept Work Phone: Xnion gap [Moles/Vol]11 mmol/L9 - 17 mmol/LMmetrohealth main campus medical centery Rece[facility] Work Phone: JST [Catalytic activity/Vol]19 U/L<32[facility] Work Phone: Qilirubin [Mass/Vol]mg/dLLow0.3 - 1.2 mg/dLAultman Orrville Hospital [facility] Work Phone: Calcium [Mass/Vol]8.9 mg/dL8.6 - 10.4 mg/dLAultman Orrville Hospital [facility] Work Phone: Vhloride [Moles/Vol]104 mmol/L98 - 107 mmol/LMmer[facility] Work Phone: UO2 [Moles/Vol]24 mmol/L20 - 31 mmol/LMmercy health lor[facility] hospital [employer] Work Phone: creatinine [Mass/Vol]0.6 mg/dL0.50 - 0.90 mg/dLAultman Orrville Hospital Jolancer Phone: Free PSA/Total PSA [Mass fraction]6.7 g/dL6.4 - 8.3 g/dLAultman Orrville Hospital Rece[facility] Work Phone: GFR >60>60 mL/minAultman Orrville Hospital [facility]ce[facility] Work Phone: GFR Non->60>60 mL/minAultman Orrville Hospital [facility] Work Phone: Glucose [Mass/Vol]91 mg/dL70 - 99 mg/dLAultman Orrville Hospital [facility] Work Phone: Interpretation and review of laboratory results AbnormalAultman Orrville Hospital [facility] Work Phone: potassium [Moles/Vol]4.0 mmol/L3.7 - 5.3 mmol/LMmercy health lor[facility] hospital [employer] Phone: sodium [Moles/Vol]139 mmol/L135 - 144 mmol/LMmercy health lor[facility] hospital [employer] Work Phone: Urea nitrogen (BldV) [Mass/Vol]9 mg/dL6 - 20 mg/dL [facility] [employer] Phone: Urea nitrogen/Creatinine (Bld) [Mass ratio]15[facility]3CLogic Work Phone: [facility] [employer] Phone: laboratory - Chemistry and Chemistry - challenge Ordered By: Keven Ching on [id number]/1.73 sq M.predicted MDRD (S/P/Bld) [Vol rate/Area][facility] CampusPacketmotion Phone: comment on above:Average GFR for 20-29 years old: 116 mL/min/1.73sq m Chronic Kidney Disease: <60 mL/min/1.73sq m Kidney failure: <15 mL/min/1.73sq m eGFR calculated using average adult body mass. Additional eGFR calculator available at: http://www.[employer]/multiple_crcl_2011.htm Stage 1: Some kidney damage normal GFR Stage 2: Mild kidney damage GFR 60-89 Stage 3: Moderate kidney damage GFR 30-59 Stage 4: Severe kidney damage GFR 15-29 Stage 5: Severe kidney damage GFR <15 ESRD - chronic treatment by dialysis or transplant Vital Signs Date TimeVital SignValuePerforming WjlkonsxeNdlxtcet28-18-4708 10:010400Body bemzux330.9 cmAssumpta [employer] DIRECTOR TRUST-SUSTAINABILITY ENGINEER Work Phone: [facility]10-31-2025 10:010400Body mass index (BMI) [Ratio]53.58 kg/j5Aoqrngno One[employer] IT Servicesesthela DIRECTOR TRUST-SUSTAINABILITY ENGINEER Work Phone: [facility] HospitalC[facility]10-31-2025 10:01-0400Body .9 [degF][employer] EnterpriseNHotel Urbano Work Phone: [facility]10-31-2025 10:01-0400Body .55 kgAssumpta Raul HECK-FADY Work Phone: [facility]10-31-2025 10:01-0400Diastolic blood ozdylaie87 mm[Hg][employer]um[employer] Raul HECK-FADY Work Phone: [address] [place], [place] [address]10-31-2025 10:01-0400Heart rate 112 /minAssumpta Raul SCHMITTN-FADY Work Phone: [facility]10-31-2025 10:01-4830ClA6% (BldA) [Mass fraction]96 %Assumpta Raul HECK-FADY Work Phone: [facility]10-31-2025 10:01-0400Systolic blood kvfytfoi772 mm[Hg][employer] Raul MCCLAIN Work Phone: [facility] [facility]10-28-2025 09:30-0400Body toruzf703.9 cmSopal Peña DO Work Phone: [phone] Receept Efciko65-44-2095 09:30-0400Body mass index (BMI) [Ratio]52.49 kg/l7TkbausVincent Peña DO Work Phone: [facility] Receept Nsrigz01-64-0639 09:30-0400Body grqapc590 kgVincent Peña DO Work Phone: [phone] Receept Eteheq95-97-9760 09:30-0400Diastolic blood mm[Hg]Vincent Peña DO Work Phone: [facility] Receept Jvxsso89-36-9892 09:30-0400Heart rate 79 /minSopal Peña DO Work Phone: [facility] Receept Ijtakm18-26-2680 09:30-0472FcT0% (BldA) [Mass fraction]99 %Vincent Peña DO Work Phone: [facility] Receept Naxmeh66-51-1241 09:30-0400Systolic blood psoyktnm679 mm[Hg]Vincent Peña DO Work Phone: [facility]10-21-2025 15:00-0400Body .9 cmCorine Gold MD Work Phone: [facility]10-21-2025 15:00-0400Body mass index (BMI) [Ratio]52.49 kg/u1KcvafxhCorine Gold MD Work Phone: [phone]10-21-2025 15:00-0400Body zooppwobzub46.39 [degF]Corine Gold MD Work Phone: [facility]10-21-2025 15:00-0400Body vtsjot875.01 kgCorine Gold MD Work Phone: [facility]10-21-2025 15:00-0400Diastolic blood bvufkagp14 mm[Hg]Corine Gold MD Work Phone: [facility]10-21-2025 15:00-0400Heart rate 77 /minCorine Gold MD Work Phone: [facility]10-21-2025 15:00-4186XzD0% (BldA) [Mass fraction]94 %Corine Gold MD Work Phone: [facility]10-21-2025 15:00-0400Systolic blood mm[Hg]Corine Gold MD Work Phone: [facility]09-04-2025 14:57-0400Body dxpkeh956.4 cmAyvonne Hart APRN-SUSTAINABILITY ENGINEER Work Phone: [facility]09-04-2025 14:57-0400Body mass index (BMI) [Ratio]53.75 kg/d4KplngpztyMali Hart APRN-SUSTAINABILITY ENGINEER Work Phone: [facility]09-04-2025 14:57-0400Body zlvhewrngyj58.6 [degF]Mali Hart DIRECTOR TRUST-SUSTAINABILITY ENGINEER Work Phone: [facility]09-04-2025 14:57-0400Body becreo856.83 kgAledc Hart DIRECTOR TRUST-SUSTAINABILITY ENGINEER Work Phone: [facility]09-04-2025 14:57-0400Diastolic blood zfnowkcw66 mm[Hg]Mali Hart DIRECTOR TRUST-SUSTAINABILITY ENGINEER Work Phone: [facility]09-04-2025 14:57-0400Heart rate 97 /minAledc Hart DIRECTOR TRUST-SUSTAINABILITY ENGINEER Work Phone: [facility]09-04-2025 14:57-3829XyC5% (BldA) [Mass fraction]95 %Mali Hart DIRECTOR TRUST-SUSTAINABILITY ENGINEER Work Phone: [facility]09-04-2025 14:57-0400Systolic blood mm[Hg]Mali Hart DIRECTOR TRUST-SUSTAINABILITY ENGINEER Work Phone: [facility]07-15-2025 10:33-0400Body mass index (BMI) [Ratio]50.73 kg/m5Yehcp Roopa DO Work Phone: [facility] HospitalOvvbunnroi48-44-6238 10:33-0400Body .79 kgCorey Roopa DO Work Phone: [facility] HospitalIdaqelcuxu30-95-4504 10:33-0400Diastolic blood mm[Hg]Zay Roopa DO Work Phone: [facility] HospitalWverhjicch00-27-0617 10:33-0400Systolic blood xnnhzoxg561 mm[Hg]Zay Roopa DO Work Phone: [facility] HospitalIsunchtbrv91-08-7174 12:12-0400Diastolic blood mm[Hg]Infusion 5 Work Phone: [facility]06-13-2025 12:12-0400Heart rate97 /min Infusion 5 Work Phone: [facility]06-13-2025 12:12-0400Systolic blood likbsazc071 mm[Hg]Infusion 5 Work Phone: [facility]06-12-2025 12:24-0400Diastolic blood mmmnymlm62 mm[Hg]Infusion 7 Work Phone: [facility]06-12-2025 12:24-0400Heart rate98 /min Infusion 7 Work Phone: [facility]06-12-2025 12:24-0400Systolic blood mm[Hg]Infusion 7 Work Phone: [facility]06-04-2025 15:07-0400Body lwakuk333.4 cmHalima Johns APRN-SUSTAINABILITY ENGINEER Work Phone: [facility]06-04-2025 15:07-0400Body mass index (BMI) [Ratio]49.76 kg/n2EaxvdwHalima Johns APRN-SUSTAINABILITY ENGINEER Work Phone: [facility]06-04-2025 15:07-0400Body vklnapiampc66.01 [degF]Halima Johns APRN-SUSTAINABILITY ENGINEER Work Phone: [facility]06-04-2025 15:07-0400Body viohne264.58 kgHalima Johns APRN-SUSTAINABILITY ENGINEER Work Phone: [facility]06-04-2025 15:07-0400Diastolic blood ogdomtpb56 mm[Hg]Halima Johns APRN-SUSTAINABILITY ENGINEER Work Phone: [facility]06-04-2025 15:07-0400Heart rate 102 /minHalima Johns APRN-SUSTAINABILITY ENGINEER Work Phone: [facility]06-04-2025 15:07-8216YsV2% (BldA) [Mass fraction]99 %Halima Johns APRN-SUSTAINABILITY ENGINEER Work Phone: [facility]06-04-2025 15:07-0400Systolic blood lszjrufb337 mm[Hg]Halima Mirandaler DIRECTOR TRUST-SUSTAINABILITY ENGINEER Work Phone: [facility]05-12-2025 08:40-0400Body mass index (BMI) [Ratio]47.2 kg/z5Twmde Roopa DO Work Phone: [facility] HospitalKrsnttfibz16-08-2077 08:40-0400Body jruvfp380.31 kgCorevikas Roopa DO Work Phone: [facility] HospitalZdshipzkpm65-10-2769 08:40-0400Diastolic blood ohlvnclz94 mm[Hg]Zay Greero DO Work Phone: [facility] HospitalWrblitwqel82-75-6037 08:40-0400Systolic blood mm[Hg]Zay Greero DO Work Phone: [facility] HospitalZzpqegfgsr06-20-1703 09:43-0400Body mass index (BMI) [Ratio]46.09 kg/g5Nezmgeesharad Cotton DO Work Phone: [facility]04-01-2025 09:43-0400Body buetqbcfbsc96.81 [degF]Rajinder Poncemimi DO Work Phone: [facility]04-01-2025 09:43-0400Body yxylma446.05 kgMicshaard Cotton DO Work Phone: [facility]04-01-2025 09:43-0400Diastolic blood ofwsoxlj08 mm[Hg]Rajinder Cotton DO Work Phone: [facility]04-01-2025 09:43-0400Heart rate 106 /minMicdeysipradeep Lula DO Work Phone: [facility]04-01-2025 09:43-5088EaZ4% (BldA) [Mass fraction]98 %Rajinder Krismimi DO Work Phone: [facility]04-01-2025 09:43-0400Systolic blood jwvjixnh469 mm[Hg]Rajinder Cotton DO Work Phone: [facility]03-26-2025 08:46-0400Body zcolxf062.4 cmCourmagdielyung Ye PA Work Phone: [facility]03-26-2025 08:46-0400Body mass index (BMI) [Ratio]46.36 kg/x1Augdpzof Ye PA Work Phone: [facility]03-26-2025 08:46-0400Body .1 [degF]Svetlana Ye PA Work Phone: [phone]03-26-2025 08:46-0400Body yagwai508.68 kgCogisel Wallacene PA Work Phone: [phone]03-26-2025 08:46-0400Diastolic blood aqwosiqi84 mm[Hg]Svetlana Wallacene PA Work Phone: [facility]03-26-2025 08:46-0400Heart rate 98 /minCourtyung Wallacene PA Work Phone: [facility]03-26-2025 08:46-0400 Respiratory rate18 /minCourtney Ye PA Work Phone: [facility]03-26-2025 08:46-4509DwD6% (BldA) [Mass fraction]98 %Svetlana Ye PA Work Phone: [facility]03-26-2025 08:46-0400Systolic blood kksgnojj424 mm[Hg]Svetlana Wallacene PA Work Phone: [facility]03-13-2025 12:20-0400Diastolic blood zhanxnfi94 mm[Hg]Infusion 7 Work Phone: [facility]03-13-2025 12:20-0400Heart rate90 /min Infusion 7 Work Phone: [facility]03-13-2025 12:20-0400Systolic blood gdotxkyl371 mm[Hg]Infusion 7 Work Phone: [facility]03-06-2025 13:06-0500Body wtufir705.9 cmCorine Gold MD Work Phone: [facility]03-06-2025 13:06-0500Body mass index (BMI) [Ratio]44.01 kg/g1HckhcpgCorine Gold MD Work Phone: [facility]03-06-2025 13:06-0500Body ihowqspwawo30.7 [degF]Corine Gold MD Work Phone: [facility]03-06-2025 13:06-0500Body .6 kgCorine Gold MD Work Phone: [facility]03-06-2025 13:06-0500Diastolic blood gehllxsx30 mm[Hg]Corine Gold MD Work Phone: [facility]03-06-2025 13:06-0500Heart rate 91 /minCorine Gold MD Work Phone: [facility]03-06-2025 13:06-8171ToA6% (BldA) [Mass fraction]98 %Corine Gold MD Work Phone: [facility]03-06-2025 13:06-0500Systolic blood ubskxtss315 mm[Hg]Corine Gold MD Work Phone: [facility]03-05-2025 09:45-0500Body mass index (BMI) [Ratio]44.58 kg/e2QezatqaaSvetlana HERNANDEZ Work Phone: [facility]03-05-2025 09:45-0500Body rxowsjxlabx60.9 [degF]Svetlana HERNANDEZ Work Phone: [facility]03-05-2025 09:45-0500Body psnneb057.96 kgCogisel HERNANDEZ Work Phone: [facility]03-05-2025 09:45-0500Diastolic blood lojgvata54 mm[Hg]Svetlana Ye PA Work Phone: [phone] DaytonIm[facility] Ermiqo71-27-5117 09:45-0500Heart rate 99 /minCourtney Ye PA Work Phone: [phone] [place], [place] [address] Wzrquj84-21-8685 09:45-3342ZhH5% (BldA) [Mass fraction]96 %Svetlana Ye PA Work Phone: [phone] [place], [place] [address] Poufxf05-17-7353 09:45-0500Systolic blood sqgzmavn708 mm[Hg]Svetlana Ye PA Work Phone: [phone] [place], [place] [address] Twdwin80-06-3666 09:16-0500Diastolic blood javpnqea98 mm[Hg]Svetlana Ye PA Work Phone: [phone] [place], [place] [address] Xdsrcn62-01-6801 09:16-0500Heart rate 88 /minCourtney Ye PA Work Phone: [phone] [place] [address] Receept Brklcl25-70-5278 09:16-0500 Respiratory rate16 /minCourtney Ye PA Work Phone: [phone] [place], [place] [address] Sslswc64-10-9579 09:16-2679XtB5% (BldA) [Mass fraction]96 %Svetlana Ye PA Work Phone: [phone] [place], [place] [address] Eklzoi53-36-3522 09:16-0500Systolic blood dtruwpjo395 mm[Hg]Svetlana Ye PA Work Phone: [phone] [place], [place] [address] Lfells21-14-0625 09:01-0500Body hrsazj373.9 cmCourtney Ye PA Work Phone: [phone] [place], [place] [address] Bfckmd73-93-1353 09:01-0500Body mass index (BMI) [Ratio]45.83 kg/d3Omdnkdnx Ye PA Work Phone: [phone] [place], [place] [address] Sfgogw23-69-5836 09:01-0500Body swkuhp824.95 kgCourtney Ye PA Work Phone: [phone] [place], [place] 0386402-19-2025 11:09-0500Body tuvsbctgbug84.5 [degF]Milad Hernandez MD Work Phone: [phone] [place], [place] 0386402-19-2025 11:09-0500Diastolic blood icawluda03 mm[Hg]Milad Hernandez MD Work Phone: [phone] [place], [place] 0386402-19-2025 11:09-0500Heart rate 90 /minMilad Hernandez MD Work Phone: 1(813)7-[address] [place], [place] 0386402-19-2025 11:09-0500 Respiratory rate18 /minMilad Hernandez MD Work Phone: [phone] [place], [place] 0386402-19-2025 11:09-5921ZxV2% (BldA) [Mass fraction]95 %Milad Hernandez MD Work Phone: [phone] [place], [place] 0386402-19-2025 11:09-0500Systolic blood rquiajft151 mm[Hg]Milad Hernandez MD Work Phone: 1(650)6-[address] [place], [place] 0386402-19-2025 05:25-0500Body mass index (BMI) [Ratio]47.4 kg/m2Milad Hernandez MD Work Phone: [phone]02-19-2025 05:25-0500Body .8 kgMilad Hernandez MD Work Phone: [phone]02-11-2025 13:07-0500Body mass index (BMI) [Ratio]45.73 kg/g1Tquqg Roopa DO Work Phone: [facility] HospitalToxjxvtxfc32-81-3736 13:07-0500Body reetuz425.77 kgCorey Roopa DO Work Phone: [facility] HospitalGmehvxjkub40-67-3323 13:07-0500Diastolic blood lbkluxgo07 mm[Hg]Zay Roopa DO Work Phone: [facility] HospitalIcphotxjpr76-61-0880 13:07-0500Systolic blood ymolnnil151 mm[Hg]Zay Blas DO Work Phone: [facility] HospitalSiartgjtbh85-94-2430 15:21-0500Body temperature 98.2 [degF][address]02-03-2025 15:21-0500Diastolic blood mm[Hg][address]02-03-2025 15:21-0500Heart rate86 /min[address]02-03-2025 15:21-0500Respiratory rate20 /min [address]02-03-2025 15:21-5227ItI6% (BldA) [Mass fraction] 99 %[address]02-03-2025 15:21-0500Systolic blood pressure 132 mm[Hg][address]02-03-2025 14:58-0500Body oiwzon507.[address]02-03-2025 14:58-0500Body mass index (BMI) [Ratio] 45.57 kg/j4Nuejw[address]02-03-2025 14:58-0500Body osctob076.[address]01-29-2025 12:15-0500Body aqnrsq313.9 cmSopal Peña DO Work Phone: [facility]01-29-2025 12:15-0500Body mass index (BMI) [Ratio]45.54 kg/q9ItqttrVincent Peña DO Work Phone: [facility]01-29-2025 12:15-0500Body ifnumx928.32 kgVincent Peña DO Work Phone: [facility]01-29-2025 12:15-0500Diastolic blood hzskxpsa18 mm[Hg]Vincent Peña DO Work Phone: [facility]01-29-2025 12:15-0500Heart rate 97 /minSopal Peña DO Work Phone: [facility]01-29-2025 12:15-0228IsC9% (BldA) [Mass fraction]98 %Vincent Peña DO Work Phone: [facility]01-29-2025 12:15-0500Systolic blood qoqqwbqb089 mm[Hg]Vincent Peña DO Work Phone: [facility]01-29-2025 12:07-0500Body nuyqjt998.[address] [place], [place] 6751901-29-2025 12:07-0500Body mass index (BMI) [Ratio]45.54 kg/m2Wlc [address] [place], [place] 6751901-29-2025 12:07-0500Body dtcjbu272.[address] [place], [place] 6751901-27-2025 11:03-0500Body mndcnu774.9 Elena Martinez MD Work Phone: [phone]53[facility]01-27-2025 11:03-0500Body mass index (BMI) [Ratio]45.69 kg/m8IysvjqseMundo Martinez MD Work Phone: [phone]01-27-2025 11:03-0500Body qzzrxybombp48.9 [degF]Mundo Martinez MD Work Phone: [phone]01-27-2025 11:03-0500Body yfcfjc058.68 kgMundo Martinez MD Work Phone: [phone])0-[address] [place], [place] [address]01-27-2025 11:03-0500Heart rate 77 /Hanh Martinez MD Work Phone: [phone]01-27-2025 11:03-3460TpG4% (BldA) [Mass fraction]99 %Mundo Martinez MD Work Phone: [phone]01-15-2025 10:45-0500Body mass index (BMI) [Ratio]45.69 kg/g7Izkoe Roopa DO Work Phone: [facility] HospitalXfwnmoovsa95-32-2291 10:45-0500Body azjiuv897.68 kgCorey Roopa DO Work Phone: [facility] HospitalItrjpqrxuh93-51-2003 10:45-0500Diastolic blood itlufusw69 mm[Hg]Zay Roopa DO Work Phone: 1(427)[facility]HealthKind[facility] HospitalQrpqunwgzr84-53-4544 10:45-0500Systolic blood pkbinoos878 mm[Hg]Zay Roopa DO Work Phone: 1(741)[facility] [place], [place] [address]Kinabksexj52-89-8338 11:25-0500Body mass index (BMI) [Ratio]47.31 kg/y3Ykxrj Roopa DO Work Phone: 1(917)[facility] [place], [place] [address]Nhiffruwxr31-14-3107 11:25-0500Body ylsouv915.58 kgCorey Roopa DO Work Phone: 1(971)[facility] [place], [place] [address]Xuvgoiwdbj04-16-0354 11:25-0500Diastolic blood bimfpkpx41 mm[Hg]Zay Roopa DO Work Phone: 1(985)[facility] HospitalCmthcalmgc85-04-0639 11:25-0500Systolic blood snurrkiu340 mm[Hg]Zay Roopa DO Work Phone: [facility] HospitalWwibzpupft78-97-9057 10:38-0500Body wmzluv087.9 cmLamont Blair MD Work Phone: [facility] HospitalSpuobxpsor09-57-1847 10:38-0500Body mass index (BMI) [Ratio]49.13 kg/m2Lamont Blair MD Work Phone: [facility] HospitalUcnvcqwmoi50-02-5330 10:38-0500Body temperature 98.01 [degF]Lamont Blair MD Work Phone: [facility] HospitalHdvdfdmbzk12-79-8591 10:38-0500Body .94 kgLamont Blair MD Work Phone: [facility] HospitalPalnkujmbv50-57-3904 10:38-0500Diastolic blood mpveqkny84 mm[Hg]Lamont Blair MD Work Phone: [facility] HospitalTmenqworhc68-94-7951 10:38-0500Heart jpar500 /min Lamont Blair MD Work Phone: [facility] HospitalFbcfxyczve16-23-6501 10:38-0500Respiratory rate22 /minLamont Blair MD Work Phone: [facility] HospitalGddghaqllo69-81-1911 10:38-0122BjZ2% (BldA) [Mass fraction]90 %Lamont Blair MD Work Phone: [facility] HospitalLlagonesrh75-94-7845 10:38-0500Systolic blood jagzxbfe612 mm[Hg]Lamont Blair MD Work Phone: [facility] HospitalCuaxqxcktz18-38-7825 13:28-0500Body omhekv900.9 cmLamont Blair MD Work Phone: [facility] HospitalJiwsaastgc12-59-3603 13:28-0500Body mass index (BMI) [Ratio]52.91 kg/m2Lamont Blair MD Work Phone: [facility] HospitalJoyenioxru29-49-0883 13:28-0500Body temperature 98.4 [degF]Lamont Blair MD Work Phone: [facility] HospitalQxezcftlxx68-34-1868 13:28-0500Body xjaqqd553.01 kgLamont Blair MD Work Phone: [facility] HospitalWfquyyhvzz67-43-4743 13:28-0500Diastolic blood ftkvuylk65 mm[Hg]Lamont Balir MD Work Phone: [facility] HospitalOnfamjitnd54-34-5991 13:28-0500Heart ttla313 /min Lamont Blair MD Work Phone: [facility] HospitalEaylqkryiu98-82-7080 13:28-0500Respiratory rate26 /minLamont Blair MD Work Phone: [facility] HospitalXcrgrhgruh05-26-0264 13:28-0304UpE2% (BldA) [Mass fraction]87 %Lamont Blair MD Work Phone: [facility] HospitalKgstjgvldf16-95-4938 13:28-0500Systolic blood hwtvqees773 mm[Hg]Lamont Blair MD Work Phone: [facility] HospitalVmaaticwme18-13-9727 15:39-0500Diastolic blood jceoetza88 mm[Hg]Infusion 1 Work Phone: [facility]12-02-2024 15:39-0500Heart rate97 /min Infusion 1 Work Phone: [facility]12-02-2024 15:39-0500Systolic blood taourftx625 mm[Hg]Infusion 1 Work Phone: [facility]12-02-2024 13:35-4089LoB2% (BldA) [Mass fraction]97 %Infusion 1 Work Phone: [facility]:on room vnm75-22-2748 11:28-0500Diastolic blood esjejfci19 mm[Hg]Infusion 5 Work Phone: [phone]11-29-2024 11:28-0500Heart rate88 /min Infusion 5 Work Phone: [phone]11-29-2024 11:28-0500Systolic blood jgkdlpuz844 mm[Hg]Infusion 5 Work Phone: [facility]11-29-2024 10:00-0500Body temperature 97.3 [degF]Infusion 5 Work Phone: [facility]11-27-2024 11:09-0500Diastolic blood yhjceehi00 mm[Hg]Infusion 6 Work Phone: [phone]11-27-2024 11:09-0500Heart rate85 /min Infusion 6 Work Phone: [phone]11-27-2024 11:09-0500Systolic blood juaamnce095 mm[Hg]Infusion 6 Work Phone: [facility]11-19-2024 09:18-0500Body kibrxw379.9 cmLamont Blair MD Work Phone: [facility] HospitalCkmtpmnfqz85-24-9083 09:18-0500Body mass index (BMI) [Ratio]53.66 kg/m2Lamont Blair MD Work Phone: [place] [address]Wgkquliczj44-43-3926 09:18-0500Body temperature 98.01 [degF]Lamont Blair MD Work Phone: [place] [address]Aqyeikhhyz24-70-8351 09:18-0500Body fussqo138.82 kgLamont Blair MD Work Phone: [place] [address]Jtnqovxgsj57-69-6907 09:18-0500Diastolic blood raorezxj89 mm[Hg]Lamont Blair MD Work Phone: [phone] [place], [place] [address]Uidzomeldn77-73-6222 09:18-0500Heart ekai374 /min Lamont Blair MD Work Phone: [place] [address]Mxggmegxzg11-39-8907 09:18-0500Respiratory rate20 /minLamont Blair MD Work Phone: [place] [address]Pnmttxvtib75-82-0176 09:18-7564DsC7% (BldA) [Mass fraction]90 %Lamont Blair MD Work Phone: [place] [address]Vcrgomjwrf98-10-3449 09:18-0500Systolic blood qcstneys781 mm[Hg]Lamont Blair MD Work Phone: [place] [address]Wpthljqrfe30-48-1019 13:38-0500Diastolic blood mm[Hg]Infusion 8 Work Phone: [facility]11-15-2024 13:38-0500Heart bkgg042 /minInfusion 8 Work Phone: [facility]11-15-2024 13:38-0500Systolic blood wtyrzigy238 mm[Hg]Infusion 8 Work Phone: [facility]09-25-2024 09:05-0400Body ngwase215.9 cmLamont Blair MD Work Phone: [facility] HospitalYxlyejfure89-46-9544 09:05-0400Body mass index (BMI) [Ratio]51.58 kg/m2Lamont Blair MD Work Phone: [facility] HospitalXhebxfmukk70-16-9477 09:05-0400Body temperature 97.81 [degF]Lamont Blair MD Work Phone: [facility] HospitalVshoviwqhc18-47-6218 09:05-0400Body hhsuoe027.83 kgLamont Blair MD Work Phone: [facility] HospitalLsicxxjmlt41-43-9462 09:05-0400Diastolic blood dmpmytzk12 mm[Hg]Lamont Blair MD Work Phone: [facility] HospitalJfybtupesj66-51-8878 09:05-0400Heart rate60 /min Lamont Blair MD Work Phone: [facility] HospitalMvvztimoaa67-75-2981 09:05-0400Respiratory rate24 /minLamont Blair MD Work Phone: [facility] HospitalWzezpgdwbb89-25-1604 09:05-0400Systolic blood wxiyqydp308 mm[Hg]Lamont Blair MD Work Phone: [facility] HospitalRupfnmnmcn85-61-9493 13:51-0400Diastolic blood czsfqinr35 mm[Hg]Infusion 8 Work Phone: [facility]08-23-2024 13:51-0400Heart rate77 /min Infusion 8 Work Phone: [facility]08-23-2024 13:51-0400Systolic blood mm[Hg]Infusion 8 Work Phone: [facility]08-20-2024 09:25-0400Body dicnvs453.9 cmLamont Blair MD Work Phone: [facility] HospitalJbqsprsyfd18-77-6410 09:25-0400Body mass index (BMI) [Ratio]48.94 kg/m2Lamont Blair MD Work Phone: [facility]Ezopdubkrq28-66-9194 09:25-0400Body temperature 97.5 [degF]Lamont Blair MD Work Phone: [place] [address]Xzeutjvqrc36-35-5424 09:25-0400Body czbidm581.48 kgLamont Blair MD Work Phone: [facility] HospitalSaernkqgml26-92-8851 09:25-0400Diastolic blood vviqgthi67 mm[Hg]Lamont Blair MD Work Phone: [facility] HospitalDqkgglabka90-38-7382 09:25-0400Heart rate88 /min Lamont Blair MD Work Phone: [facility] HospitalGywauwrksl72-47-4029 09:25-0400Respiratory rate22 /minLamont Blair MD Work Phone: [facility] HospitalRlwsyesllu74-29-0456 09:25-3680AnQ4% (BldA) [Mass fraction]95 %Lamont Blair MD Work Phone: [facility] HospitalVwkjowuctp20-33-9496 09:25-0400Systolic blood mm[Hg]Lamont Blair MD Work Phone: [facility] HospitalLqlfawskxx72-47-3645 14:22-0400Body drdoqa646.4 cmSagar Green DIRECTOR TRUST.SUSTAINABILITY ENGINEER Work Phone: [facility]07-30-2024 14:22-0400Body mass index (BMI) [Ratio]47.33 kg/m2Sagar Green DIRECTOR TRUST.SUSTAINABILITY ENGINEER Work Phone: [facility]07-30-2024 14:22-0400Body temperature 99.1 [degF]Cameroni Green DIRECTOR TRUST.SUSTAINABILITY ENGINEER Work Phone: [facility]07-30-2024 14:22-0400Body jbxole635.75 kgSagar Green DIRECTOR TRUST.SUSTAINABILITY ENGINEER Work Phone: [facility]07-30-2024 14:22-0400Diastolic blood rstoqvrx66 mm[Hg]Cameroni Green DIRECTOR TRUST.SUSTAINABILITY ENGINEER Work Phone: [facility]07-30-2024 14:22-0400Heart rate80 /min Sagar Green DIRECTOR TRUST.SUSTAINABILITY ENGINEER Work Phone: [facility]07-30-2024 14:22-0400Systolic blood mm[Hg]Sagar Barth APRN.SUSTAINABILITY ENGINEER Work Phone: [facility]06-28-2024 09:26-0400Diastolic blood oxlpihpi09 mm[Hg]Curtis Lepe PA-C Work Phone: [id number] 09:26-0400Heart rate88 /min Curtis Lepe PA-C Work Phone: [id number] 09:26-8115RdH0% (BldA) [Mass fraction]97 %Curtis Lepe PA-C Work Phone: [id number] 09:26-0400Systolic blood asifsjnn933 mm[Hg]Curtis Lepe PA-C Work Phone: [id number] 11:08-0500Diastolic blood bodsjoal32 mm[Hg]Infusion 7 Work Phone: [facility]02-23-2024 11:08-0500Heart rate84 /min Infusion 7 Work Phone: [facility]02-23-2024 11:08-0500Systolic blood nkzwoopr532 mm[Hg]Infusion 7 Work Phone: [facility]02-22-2024 10:50-0500Diastolic blood jlazuxet69 mm[Hg]Infusion 7 Work Phone: [place] [address]-22-2024 10:50-0500Heart rate86 /min Infusion 7 Work Phone: [facility]02-22-2024 10:50-0500Systolic blood zgxaiakm657 mm[Hg]Infusion 7 Work Phone: [facility]02-21-2024 13:45-0500Diastolic blood zhxwjniu85 mm[Hg]Infusion 7 Work Phone: [place] [address]-21-2024 13:45-0500Heart rate79 /min Infusion 7 Work Phone: [facility]02-21-2024 13:45-0500Systolic blood oywmvgfo587 mm[Hg]Infusion 7 Work Phone: [facility]09-22-2023 10:55-0400Diastolic blood miejprzy95 mm[Hg]Infusion 8 Work Phone: [facility]09-22-2023 10:55-0400Heart rate83 /min Infusion 8 Work Phone: [facility]09-22-2023 10:55-0400Systolic blood wcptejio115 mm[Hg]Infusion 8 Work Phone: [facility]06-08-2023 10:15-0400Diastolic blood wzowzvud49 mm[Hg]Infusion 8 Work Phone: [facility]06-08-2023 10:15-0400Heart rate80 /min Infusion 8 Work Phone: [facility]06-08-2023 10:15-0400Systolic blood mm[Hg]Infusion 8 Work Phone: [facility]10-14-2022 09:47-0400Diastolic blood bomkipbx50 mm[Hg]Jesse Borrego MD Work Phone: [facility]10-14-2022 09:47-0400Heart rate66 /min Jesse Borrego MD Work Phone: [facility]10-14-2022 09:47-1991KcG2% (BldA) [Mass fraction]100 %Jesse Borrego MD Work Phone: [facility]10-14-2022 09:47-0400Systolic blood yijqtxmf233 mm[Hg]Jesse Borrego MD Work Phone: [facility]08-31-2022 12:00-0400Diastolic blood ltinqwal003 mm[Hg]Lucila Mota MD Work Phone: [facility]08-31-2022 12:00-0400Heart rate85 /minChildren'S Island Sanitariumradha Mota MD Work Phone: [facility] [phone] 12:00-0400 Respiratory rate12 /Anastasia Mota MD Work Phone: [facility]08-31-2022 12:00-4069LdC8% (BldA) [Mass fraction]98 %Lucila Mota MD Work Phone: [facility]08-31-2022 12:00-0400Systolic blood qvvewwxz141 mm[Hg]Lucila Mota MD Work Phone: [facility]08-31-2022 08:00-0400Body qiqsronsvnl41.2 [degF]Lucila Mota MD Work Phone: [facility]11-04-2021 19:36-0400Body rolmytcocmq13 [degF]Keven Ching DO Work Phone: [facility] Work Phone: 1(921) 381-703811-04-2021 19:36-0400Diastolic blood xkjaonlj29 mm[Hg] Keven Ching DO Work Phone: [employer] Work Phone: 1(174) 223-220011-04-2021 19:36-0400Heart kaii344 /minAmanda Joshua DO Work Phone: [employer] Work Phone: 1(238) [phone] 19:36-0400Respiratory rate20 /minAmanda Joshua DO Work Phone: [facility] Work Phone: 1(285) 310-712411-04-2021 19:36-6152EbE0% (BldA) [Mass fraction]96 % Keven Ching DO Work Phone: [facility] [employer] Work Phone: 1(151) [phone] 19:36-0400Systolic blood jmdkhwet174 mm[Hg] Keven Ching DO Work Phone: [employer] Work Phone: Encounters Encounter DateEncounter TypeCare ProviderFacilityStart: 12-20-2024 End: 52-74-0835Yetjew outpatient visit 25 minutesAssumpta Radha Nnaji DIRECTOR TRUST-SUSTAINABILITY ENGINEER Work Phone: [facility] Family MedicineComment on above: Moderate persistent asthma without complication (Primary Dx); Watery eyes; Seasonal allergic rhinitis, unspecified triggerStart: 12-17-2024 End: 25-46-9611Hllhto outpatient visit 25 minutesVincent Peña DO Work Phone: [facility] Pulmonary/Sleep MedicineComment on above:Moderate persistent asthma without complication (Primary Dx); Gastroesophageal reflux disease without esophagitis; Environmental allergiesStart: 12-13-2024 End: 55-15-3601bbxsydxsvvPHXIVOB SCHAEFERFacility:[facility] Start: 12-12-2024 End: 06-59-8942Xabshuizh encounterCorine Gold MD Work Phone: [facility] - Sleep Disorders Comment on above:Sleep Lab (Comp PSG/PAP)Start: 12-12-2024 End: 68-32-8062ooarlzsmalWZEPIybomlty:[facility] Campustart: 12-11-2024 End: 63-88-5380vokrdhkxbwFEAN GREENFacility:[facility] Campustart: 12-10-2024 End: 89-37-4080Ffnmdv outpatient visit 25 minutesCorine Gold MD Work Phone: [facility] Physicians Family MedicineComment on above: JUAN DAVID (obstructive sleep apnea) (Primary Dx)Start: 12-09-2024 End: 28-41-1602PyadxcDsshdw M Elston DO Work Phone: [facility] Pulmonary/Sleep MedicineComment on above:Moderate asthma with acute exacerbation, unspecified whether persistent Start: 19-02-1171golnlvotspJkxypesqqos AbdelazizFacility:[facility] Hospitaltart: 11-26-2024 End: 89-46-6374pidftzipftAXGFDZK SCHAEFERFacility:[facility] Start: 10-24-2024 End: 24-90-9542Xsazso outpatient visit 15 minutesAlexaluisa Hatr DIRECTOR TRUST-SUSTAINABILITY ENGINEER Work Phone: [facility] Family MedicineComment on above: Left otitis media, unspecified otitis media type (Primary Dx); Mild asthma with exacerbation, unspecified whether persistentStart: 09-30-2024 End: 36-53-9142Jhycxa Gabriel Peña DO Work Phone: [facility] Pulmonary/Sleep MedicineComment on above:Moderate persistent asthma, unspecified whether complicatedStart: 09-29-2024 End: 84-37-1442WyqhsnGgugoas M Asif MD Work Phone: [facility] Family MedicineComment on above: Muscle spasmStart: 09-24-2024 End: 78-89-4545yosdvqzhueMQLMOKO SCHAEFERFacility:[facility] Start: 09-03-2024 End: 43-37-9352Qkgjaa flowsheetCorey Roopa DO Work Phone: [facility] BCP OBStart: 09-03-2024 End: 06-53-2157Jfnhvu flowsheetCorey Roopa DO Work Phone: [facility] BCP OBStart: 09-03-2024 End: 68-24-2245Issdjv outpatient visit 15 minutesCorey Roopa DO Work Phone: [facility] BCP OBComment on above:Hot flashes due to surgical menopauseStart: 09-03-2024 End: 33-03-8444qvitghpwvvWICXI FAZIONot AvailableStart: 09-02-2024 End: 44-65-9860Utkxtz OnlyKoli Green DIRECTOR TRUST.SUSTAINABILITY ENGINEER Work Phone: [facility] [place] FHCComment on above:Intractable chronic migraine without aura and without status migrainosus (Primary Dx)Start: 08-30-2024 End: 12-74-3175Ntyose OnlyKoli Green DIRECTOR TRUST.SUSTAINABILITY ENGINEER Work Phone: [facility] [place] FHCStart: 08-26-2024 End: 43-03-8730Npcmmd LadiMali Hart DIRECTOR TRUST-SUSTAINABILITY ENGINEER Work Phone: [facility] Family MedicineComment on above: Allergic reaction, sequela (Primary Dx)Start: 08-16-2024 End: 95-07-5466cazfehziudKcsf Green APRN.SUSTAINABILITY ENGINEER Work Phone: [facility] [place] FHCComment on above:InfusionStart: 08-15-2024 End: 83-56-6810ihviezodorXhxnvmw Schaefer PA-C Work Phone: NeurologyComment on above:Heads poundingStart: 08-05-2024 End: 14-55-6968Hfcbilcdt encounterChelsea [facility] Home DeliveryComment on above:Insurance Authorization (Zavzpret 10MG/ACT solution); Zavzpret 10MG/ACT solutionStart: 08-02-2024 End: 26-33-4584Ovczohp encounter procedureMajakub Lepe PA-C Work Phone: NeurologyComment on above:Intractable chronic migraine without aura and with status migrainosus (Primary Dx); Status migrainosusStart: 08-02-2024 End: 87-83-7086ovppvnioviUwcdddvh Main Chair 5 Work Phone: NeurologyComment on above:Chronic migraine without aura, with intractable migraine, so stated, with status migrainosus (Primary Dx); Intractable chronic migraine without aura and with status migrainosusStart: 08-01-2024 End: 37-57-9673meaetvnbgvQfvsgdky Main Chair 7 Work Phone: NeurologyComment on above:Intractable chronic migraine without aura and without status migrainosus (Primary Dx)Start: 07-24-2024 End: 95-47-2603Xgqtnd outpatient visit 25 minutesHalima Johns APRN-SUSTAINABILITY ENGINEER Work Phone: [facility] Family MedicineComment on above: Eye infection, bilateral (Primary Dx); Ingrown nail of great toeStart: 07-05-2024 End: 06-79-5892Sivvnyybivxpg procedureJoExcela Frick Hospital ClinicComment on above:Received BHP FAXStart: 07-05-2024 End: 26-19-6488Ophvlxzot encounterMajakub Lepe PA-C Work Phone: NeurologyComment on above:Infusion (Headache infusion scheduling)Start: 07-04-2024 End: 58-31-7318Wjbovnhn HealthMattmaximilian Lepe PA-C Work Phone: NeurologyComment on above:Status migrainosus (Primary Dx); Intractable chronic migraine without aura and without status migrainosus; Generalized anxiety disorder; Chronic migraine without aura, with intractable migraine, so stated, with status migrainosus; Intractable chronic migraine without aura and with status migrainosusStart: 07-01-2024 End: 13-27-1249Tfjmak flowsheetCorey Roopa DO Work Phone: [facility] BCP OBStart: 07-01-2024 End: 26-00-2781Evqxbm flowsheetCorey Roopa DO Work Phone: [facility] BCP OBStart: 07-01-2024 End: 22-49-2717Mbpais outpatient visit 15 minutesCorey Roopa DO Work Phone: [facility] BCP OBComment on above:Yeast infection; BV (bacterial vaginosis); Low libido; Dyspareunia in femaleStart: 07-01-2024 End: 59-00-9137qwcfnlnahtYKHCM FAZIONot AvailableStart: 06-25-2024 End: 74-04-2239Juczwumbv encounterViktoria Walton MS, CGC Work Phone: Genetics ClinicComment on above:Genetic Testing Prior Authorization RequestStart: 06-11-2024 End: 39-74-5406zfgwkijpnvSZYJDEE M [facility] Hospitaltart: 06-10-2024 End: 39-10-7603Srzxkg OnlyViktoria Walton MS, CGC Work Phone: Genetics ClinicStart: 06-07-2024 End: 33-72-4382Vhlvuouxw encounterGtramya Fernández JohnProMedica Call CenterStart: 06-06-2024 End: 98-22-3288Lrcvbf outpatient visit 25 minutesCorine Gold MD Work Phone: [facility] Family MedicineComment on above: Weight loss (Primary Dx); Moderate persistent asthma with acute exacerbation; Seasonal allergic rhinitis, unspecified triggerStart: 06-06-2024 End: 02-04-4068VksiasVgalwob M Asif MD Work Phone: [facility] Physicians Family MedicineComment on above: Seasonal allergic rhinitis, unspecified triggerStart: 05-31-2024 End: 72-13-3121SomutsRgeoShaw Barth APRN.CNP Work Phone: [facility] FHCComment on above:Refill RequestStart: 05-24-2024 End: 24-47-0577NuznivPzxuxm M Elston DO Work Phone: [facility] Pulmonary/Sleep MedicineComment on above:Moderate persistent asthma, unspecified whether complicatedStart: 05-21-2024 End: 50-06-2401Nqxshv outpatient visit 15 minutesRajinder Cotton DO Work Phone: [facility] Family MedicineComment on above: Moderate persistent asthma with acute exacerbation (Primary Dx); Acute pansinusitis, recurrence not specified; Antibiotic-induced yeast infectionStart: 05-15-2024 End: 92-68-6595Zjlfhn follow up visit related to original Edgardo HERNANDEZ Work Phone: [facility] Fern[facility]dez [facility] - Medical OncologyComment on above:S/P bilateral salpingo-oophorectomy (Primary Dx); Menopausal symptomsStart: 05-07-2024 End: 18-96-8331Igxyxikfn encounterAngely Cotton RN Work Phone: [facility] Home DeliveryComment on above: Insurance Authorization; ubrelvyStart: 05-03-2024 End: 80-34-4770Plgzwgkg [facility] Hospitalmaximilian Lepe PA-C Work Phone: NeurologyComment on above:Intractable chronic migraine without aura and with status migrainosus (Primary Dx); Nausea; Generalized anxiety disorderStart: 05-02-2024 End: 31-27-7742Zbflua Martin HERNANDEZ Work Phone: [facility], [facility] of [facility] HospitalComment on above:Postoperative infection, unspecified type, subsequent encounter (Primary Dx)Chronic migraine without aura, with intractable migraine, so stated, with status migrainosus (Primary Dx); Intractable chronic migraine without aura and with status migrainosus; Intractable chronic migraine without aura and without status migrainosusStart: 05-01-2024 End: 18-43-2575Rlrsbv Gabriel Peña DO Work Phone: [facility] Pulmonary/Sleep MedicineComment on above:Moderate persistent asthma, unspecified whether complicatedStart: 04-30-2024 End: 17-43-5390Flcgkxmiy encounterCaterina Smith CMAProMedica Physicians Family MedicineStart: 04-29-2024 End: 08-83-8093Kzgpup OnlyMali MCCLAIN Work Phone: [facility] Family MedicineComment on above: Postoperative surgical complication involving genitourinary system associated with genitourinary procedure, unspecified complicationStart: 04-25-2024 End: 15-40-1372Admmsy outpatient new 45 minutesCorine Gold MD Work Phone: [facility] Family MedicineComment on above: Muscle spasm (Primary Dx); Fatigue due to depression; Nausea and vomiting, unspecified vomiting type; Mild persistent asthma without status asthmaticus without complication; Psychogenic nonepileptic seizureStart: 04-24-2024 End: 39-80-1548Qupyvfyrvflfv procedureCanraghu Antonio [facility] - Medical OncologyStart: 04-24-2024 End: 84-26-9614Beooja follow up visit related to original pxCourtney Ye PA Work Phone: [facility] - Medical OncologyComment on above:Post-operative pain (Primary Dx)Start: 04-19-2024 End: 90-30-8050sutyhzixyyBddo Green APRN.SUSTAINABILITY ENGINEER Work Phone: Neurology [facility] FHCComment on above:InfusionsStart: 04-16-2024 End: 13-08-8728Gntnbl flowsheetCorey Roopa DO Work Phone: [facility] BCP OBStart: 04-16-2024 End: 02-19-0488Erubup flowsheetCorey Roopa DO Work Phone: [facility] BCP OBStart: 04-16-2024 End: 14-30-4022Xfvmfedpv Result EncounterGeneric External Data ProviderNOMS External Department UnsolicitedStart: 04-16-2024 End: 32-62-4026lsvekgvoekFKABQ FAZIONot AvailableStart: 04-16-2024 End: 61-67-6892Ekaamkd encounter procedureCorey Roopa DO Work Phone: [facility] Work Phone: Start: 04-16-2024 End: 61-37-5133Zwnjaslo preventive med est patient 18-39 yrsCorey Roopa DO Work Phone: [facility] BCP OBComment on above:Well woman exam with routine gynecological examStart: 04-15-2024 End: 66-39-0256Mhcdqx follow up visit related to original Edgardo HERNANDEZ Work Phone: [facility] HospitalComment on above:Postoperative surgical complication involving genitourinary system associated with genitourinary procedure, unspecified complication (Primary Dx); Post-op pain; Sweating profusely; Menopausal symptoms; Nausea and vomiting, unspecified vomiting typeStart: 04-08-2024 End: 47-40-6142Khzqxofvr encounterMaleonora Ku [facility]ITALPro[facility] Hospitaltart: 04-08-2024 End: 46-54-2636Tbkxoapxhk and management of inpatientDaconstantine Melton DO Work Phone: [facility] - GEN 6 AcuteComment on above:Postoperative surgical complication involving genitourinary system associated with genitourinary procedure, unspecified complication (Primary Dx) Start: 04-02-2024 End: 51-01-8069ooxuednevcFNZIX FAZIONot AvailableStart: 04-02-2024 End: 41-29-0540Brjpfk outpatient visit 10 minutesCorey Roopa DO Work Phone: [facility] BCP OBComment on above:Visit for wound check; Yeast infectionStart: 04-01-2024 End: 65-13-1712Leqran Martin HERNANDEZ Work Phone: [facility], [facility] of [facility] HospitalComment on above:S/P bilateral salpingo-oophorectomy Post-op pain (Primary Dx)Start: 03-25-2024 End: 29-50-1317Fowisea encounter statusMet[address] Streettart: 03-25-2024 End: 46-90-0305Fwdhjj Michelle Martinez MD Work Phone: [facility], A [facility] of [facility] HospitalComment on above:Preop testing (Primary Dx); Bilateral ovarian cystsStart: 03-21-2024 End: 11-51-3504Kdgcffvkv encounterMundo Martinez MD Work Phone: [facility], A [facility] of [facility] HospitalComment on above:Other (Surgery questions)Start: 03-21-2024 End: 37-66-2422zpcubrtyxoTsfrLuis Barth APRN.CNP Work Phone: [facility] [place] FHCComment on above:Intractable chronic migraine without aura and without status migrainosus (Primary Dx)Start: 03-21-2024 End: 73-02-6446Brutvmhcrkts consultation with patientKoli Green DIRECTOR TRUST.SUSTAINABILITY ENGINEER Work Phone: [facility] Hospitaltart: 03-20-2024 End: 90-24-3954Isxgfz outpatient new 45 minutesVincent Peña DO Work Phone: [facility] Pul[facility]/Sleep MedicineComment on above:Asthma, unspecified asthma severity, unspecified whether complicated, unspecified whether persistent (Primary Dx); Bilateral ovarian cysts; Moderate asthma with acute exacerbation, unspecified whether persistent; Encounter for preoperative pulmonary examination; Pulmonary nodule; Gastroesophageal reflux disease, unspecified whether esophagitis presentStart: 03-20-2024 End: 66-17-4133Zssvzfmzpzhh stateMundo Martinez MD Work Phone: [facility] Centertart: 03-20-2024 End: 36-75-4631Ewlhbf Michelle Martinez MD Work Phone: [facility] Gy[facility]cology Oncology, A Department of [facility] HospitalComment on above:Bilateral ovarian cysts (Primary Dx); Moderate asthma with acute exacerbation, unspecified whether persistent; Encounter for preoperative pulmonary examinationAcute cough [R05.1] (Primary Dx) Start: 03-19-2024 End: 46-65-0921Qctqil Michelle Martinez MD Work Phone: [facility] Oncology, A Department of [facility] HospitalComment on above:Bilateral ovarian cysts (Primary Dx); Preop testingStart: 03-19-2024 End: 86-06-6301Pszsapi encounter statusMundo Martinez MD Work Phone: [facility] DaytonIm[facility] Digital SystemStart: 03-18-2024 End: 45-18-5035Mmgnse outpatient new 60 minutesMundo Martinez MD Work Phone: [facility] Gy[facility]cology Oncology, A Department of [facility] HospitalComment on above:Cyst of right ovary (Primary Dx)Start: 03-06-2024 End: 37-46-1649Tgsyyz outpatient visit 15 minutesCorey Roopa DO Work Phone: [facility] BCP OBComment on above:Cyst of right ovary; Pelvic pain in female; Pelvic peritoneal adhesions, femaleStart: 03-06-2024 End: 37-62-4446cdbxigyvatHGTXP FAZIONot AvailableStart: 02-28-2024 End: 05-99-6498Itmkwd flowsheetCorey Roopa DO Work Phone: [facility] BCP OBStart: 02-28-2024 End: 66-09-1389Afshck flowsheetCorey Roopa DO Work Phone: [facility] BCP OBStart: 02-28-2024 End: 50-17-8476kgoxjukltpTOLYP FAZIONot AvailableStart: 02-28-2024 End: 19-74-0231Tvcpnv outpatient visit 15 minutesCorey Roopa DO Work Phone: [facility] BCP OBComment on above:Pelvic pain in female; Complex ovarian cystStart: 02-26-2024 End: 07-35-0265Boaayvlcx encounterLamont Blair MD Work Phone: [facility] CI FMStart: 02-22-2024 End: 72-37-1712Ivivnmnfr encounterSagar Barth APRN.CNP Work Phone: [facility] FHCComment on above:Insurance Authorization (Zolmitriptan)Start: 02-19-2024 End: 17-01-4736Lyzbgvlfi Result EncounterGeneric External Data ProviderNOMS External Department UnsolicitedStart: 02-19-2024 End: 11-54-4825Ozysnkjmo Result EncounterGeneric External Data ProviderNOMS External Department UnsolicitedStart: 02-16-2024 End: 42-48-3093zxzwjgpyhcGvxqcxy J DittyFacility:[facility] Hospitaltart: 02-09-2024 End: 37-43-3390Pyffmf outpatient visit 25 minutesLamont Blair MD Work Phone: [facility] CWM FMComment on above:Generalized abdominal pain (Primary Dx); Intractable nausea and vomiting; Mild persistent asthma with (acute) exacerbation (CMS/HCC)Start: 02-09-2024 End: 89-92-6992fooyuocacmDRZT NADERERNot AvailableStart: 01-31-2024 End: 56-93-0534Pkrjbdlsw Result EncounterGeneric External Data ProviderNOMS External Department UnsolicitedStart: 01-31-2024 End: 26-58-6606Rnqmqkttf Result EncounterGeneric External Data ProviderNOMS External Department UnsolicitedStart: 01-29-2024 End: 55-79-2563Fvlxnqbet encounterSagar Barth APRN.CNP Work Phone: [facility] FHtart: 01-24-2024 End: 94-77-5949GamgroYuli Blair MD Work Phone: NOJX CWM FMComment on above:COVID-19Start: 01-23-2024 End: 42-67-5609Agnfal Christina Blair MD Work Phone: [facility] CWM FMStart: 01-23-2024 End: 00-10-4763Ghfzdi Christina Blair MD Work Phone: [facility] CWM FMStart: 01-23-2024 End: 68-48-2711Ppjrpz outpatient visit 25 minutesLamont Blair MD Work Phone: [facility] CWM FMComment on above:Mild persistent asthma with (acute) exacerbation (CMS/HCC) (Primary Dx); Generalized edema; SOB (shortness of breath) on exertionStart: 01-23-2024 End: 81-89-0473faxrdkscsiDCXY NADERERNot AvailableStart: 01-22-2024 End: 25-34-0917Glzblle encounter Juan J Shields APRN.CNP Work Phone: NeurologyComment on above:Chronic migraine without aura, with intractable migraine, so stated, with status migrainosus (Primary Dx) Start: 01-22-2024 End: 50-29-0700mwkwbkxamsLyamnydm Main Chair 1 Work Phone: NeurologyComment on above:Chronic migraine without aura, with intractable migraine, so stated, with status migrainosus (Primary Dx); Intractable chronic migraine without aura and with status migrainosusStart: 01-20-2024 End: 91-93-4088AiycwrSdix Naderer MD Work Phone: [facility] CWM FMComment on above:Pain, dentalStart: 01-19-2024 End: 73-64-3437zjcffkdjkoTiaoqixj Main Chair 5 Work Phone: NeurologyComment on above:Chronic migraine without aura, with intractable migraine, so stated, with status migrainosus (Primary Dx); Intractable chronic migraine without aura and with status migrainosusStart: 01-17-2024 End: 17-89-7408tfdbuwsmunPvymlrki Main Chair 6 Work Phone: NeurologyComment on above:Chronic migraine without aura, with intractable migraine, so stated, with status migrainosus (Primary Dx); Intractable chronic migraine without aura and with status migrainosusStart: 01-16-2024 End: 83-58-6122ncibfdarhwVpso Tab SEO Work Phone: [facility] [place] FHCComment on above:Please helpStart: 01-09-2024 End: 36-43-3462Nslamk Christina Blair MD Work Phone: [facility] CWM FMStart: 01-09-2024 End: 15-57-4572Ckqgjh Christina Blair MD Work Phone: [facility] CWM FMStart: 01-09-2024 End: 06-66-9472Zayryh outpatient visit 25 minutesLamont Blair MD Work [...] not intractable (CMS/HCC); Pain, dentalStart: 01-09-2024 End: 46-98-6707tmluivazztHLJA SUKHRMaia AvailableStart: 01-05-2024 End: 75-15-0566xwfbdpmokwFjicscik Main Chair 8 Work Phone: NeurologyComment on above:Intractable chronic migraine without aura and without status migrainosus (Primary Dx)Start: 12-11-2023 End: 07-01-4108Suqfat flowsheetCorey Roopa DO Work Phone: [facility] BCP OBStart: 12-11-2023 End: 43-33-1390Sxguwz flowsheetCorey Roopa DO Work Phone: NOPD BCP OBStart: 12-11-2023 End: 86-00-4718byyqtzgcvqIRXRP FAZIONot AvailableStart: 12-05-2023 End: 32-56-4482sfnqqwxrszRpxfl J Stiffler APRN.SUSTAINABILITY ENGINEER Work Phone: NeurologyComment on above:Intractable chronic migraine without aura and without status migrainosus (Primary Dx)Start: 12-05-2023 End: 42-81-7432Ayildscsktas consultation with Brendan Shabazz APRN.SUSTAINABILITY ENGINEER Work Phone: NeurologyStart: 11-15-2023 End: 90-47-7053Glztoj Christina Blair MD Work Phone: [facility] CWM FMStart: 11-15-2023 End: 20-57-9889Kytqua Christina Blair MD Work Phone: [facility] CWM FMStart: 11-15-2023 End: 04-89-2521Nrmwpj outpatient visit 15 minutesLamont Blair MD Work Phone: [facility] CWM FMComment on above:Acute bronchitis due to other specified organisms (Primary Dx); Mixed bipolar I disorder (CMS/HCC)Start: 11-15-2023 End: 10-65-1203egolqnqbplNNRX NADERERNot AvailableStart: 11-10-2023 End: 03-78-4279AysqxkEcopmiiRandy Lepe PA-C Work Phone: NeurologyComment on above:Refill RequestStart: 11-06-2023 End: 87-76-7461Moacov Jose Maria Mustafa NP Work Phone: [facility] CWM FMComment on above:Severe persistent asthma without complication (CMS/HCC)Start: 10-13-2023 End: 18-28-6444gzedwcytvrXwytvqnu Main Chair 8 Work Phone: NeurologyComment on above:Intractable chronic migraine without aura and without status migrainosus (Primary Dx)Start: 10-10-2023 End: 34-94-2800Levknd flowsLou Blair MD Work Phone: [facility] CWM FMStart: 10-10-2023 End: 25-03-6365Grxfzm flowsLou Blair MD Work Phone: [facility] CWM FMStart: 10-10-2023 End: 82-30-3407Rrzybd outpatient visit 15 minutesLamont Blair MD Work Phone: [facility] CWM FMComment on above:Acute bronchitis due to other specified organisms (Primary Dx); Mild persistent asthma with (acute) exacerbation (CMS/HCC)Start: 10-10-2023 End: 46-70-0411ipcofezqxaSEEZ NADERERNot AvailableStart: 09-25-2023 End: 48-68-5689jkmzozhdftHOHZA FAZIONot AvailableStart: 09-19-2023 End: 08-46-4382Mdjbggm encounter Malina Barth APRN.CNP Work Phone: [facility] [place] FHCComment on above:Intractable chronic migraine without aura and without status migrainosus (Primary Dx)Start: 08-18-2023 End: 24-84-7023Jhqmnsf encounter procedureCurtis Lepe PA-C Work Phone: NeurologyComment on above:Intractable chronic migraine without aura and without status migrainosus (Primary Dx); Psychogenic nonepileptic seizureStart: 49-94-7587piynixphqvIhgzLuis Barth APRN.CNP Work Phone: [facility] HospitalCStart: 36-64-9532Ocihbgspdh hospital visit by Randolph Barth APRN.CNP Work Phone: Neurology Head[facility] [place] FHCComment on above:Hospital visitStart: 20-90-5528exbvlypmgxClvlLuis Barth APRN.CNP Work Phone: Neurolog Headache [facility] HospitalCComment on above:InjectionStart: 07-10-2023 End: 25-14-6014skprznyjwiIdqiLuis Barth APRN.CNP Work Phone: Neurology Headache [place] FHCComment on above:Intractable chronic migraine without aura and without status migrainosus (Primary Dx)Start: 07-10-2023 End: 10-09-3569Aoccgescolwb consultation with Aditya Barth APRN.CNP Work Phone: Neurolog Headache [place] FHCStart: 34-86-3681avqvchaeruCkokyVarsha Shabazz APRN.CNP Work Phone: NeurologyComment on above:ConcernHeadacheStart: 04-14-2023 End: 61-09-9295vclofzwuzoXuqczvlv Main Chair 7 Work Phone: NeurologyComment on above:Chronic migraine without aura, with intractable migraine, so stated, with status migrainosus (Primary Dx); Intractable chronic migraine without aura and with status migrainosusStart: 04-14-2023 End: 46-01-9781Vfbdyfg encounter procedureSuzan Ivey APRN.CNP Work Phone: NeurologyComment on above:Intractable chronic migraine without aura and with status migrainosus (Primary Dx); Intractable chronic migraine without aura and without status migrainosusStart: 42-83-4849Bifkfqsfb encounterSagar Barth APRN.CNP Work Phone: NeurologyComment on above:Appointment (Patient currently receiving infusions for headache. She is interested in learning about reboot program. Please schedule patient for evaluation if appropriate to proceed.)Start: 04-13-2023 End: 21-13-4319dshabscwvzRzcgympb Main Chair 7 Work Phone: NeurologyComment on above:Chronic migraine without aura, with intractable migraine, so stated, with status migrainosus (Primary Dx); Intractable chronic migraine without aura and with status migrainosusStart: 04-12-2023 End: 20-28-1613Vqnvbhv encounter Frank Ivey APRN.CNP Work Phone: NeurologyComment on above:Intractable chronic migraine without aura and with status migrainosus (Primary Dx)Start: 04-12-2023 End: 24-67-8372edgqmbtvpnMcuhjeca Main Chair 7 Work Phone: NeurologyComment on above:Chronic migraine without aura, with intractable migraine, so stated, with status migrainosus (Primary Dx); Intractable chronic migraine without aura and with status migrainosusStart: 14-46-0386Vvwybllmj encounterAngely Cotton RN Work Phone: [facility] Home DeliveryComment on above: Insurance Authorization (Aimovig 70MG/ML auto-injectors/)Start: 00-81-5648Nibbec Sagar Barth APRN.CNP Work Phone: Neurology Headache [place] FHCComment on above:Refill RequestInfusion (HEADACHE INFUSIONS)Start: 21-95-2430AqydieJilhzLul Shabazz APRN.CNP Work Phone: NeurologyComment on above:Refill RequestStart: 11-11-2022 End: 38-61-5683munvqzzdowUbwjrbrr Main Chair 8 Work Phone: NeurologyComment on above:Intractable chronic migraine without aura and with status migrainosus (Primary Dx)Start: 11-10-2022 End: 24-30-1001rcikazaqyiKwofeVarsha Shabazz APRN.CNP Work Phone: NeurologyComment on above:Intractable chronic migraine without aura and with status migrainosus (Primary Dx)Nerve blockStart: 35-85-0187Ybxrqftba encounterSuzan Ivey APRN.CNP Work Phone: NeurologyComment on above:InfusionStart: 11-10-2022 End: 91-27-8792Kgfymztbiuog consultation with Brendan Shabazz APRN.CNP Work Phone: [facility] MAINStart: 30-17-4756kpoqzyiyhr Suzan Ivey APRN.CNP Work Phone: NeurologyComment on above:BotoxStart: 14-66-4751M-mail encounter from caregiverSuzan Ivey APRN.CNP Work Phone: ccf [facility] MAINStart: 63-75-7495Vptfppooe encounterAngely Cotton RN Work Phone: [facility] Home DeliveryComment on above: Insurance Authorization (Zomig 5MG nasal spray/)Start: 82-10-1592xfwkzujytrXzwiLuis Barth APRN.CNP Work Phone: NEUR HEADACHE [facility] INDEPENDENCEComment on above:My apt Fridaystart: 14-59-4845mgscriqnfdDilhJuanjose Barth APRN.CNP Work Phone: c[facility] [place] FHCStart: 53-72-9329Mogvdmt encounter procedureSagar Barth APRN.CNP Work Phone: NEUR HEADACHE [facility] INDEPENDENCEComment on above: AppointmentStart: 08-31-2022 End: 49-66-3214aygccrroqtTlodJuanjose Barth APRN.CNP Work Phone: NeurologyComment on above:Chronic migraine w/o aura, not intractable, w/o stat migr (Primary Dx)Start: 08-31-2022 End: 73-26-0608Dtingurrvhmy consultation with Aditya Barth APRN.FADY Work Phone: [facility]CF [facility] MAINStart: 98-54-0720gybehkwrjd Sagar Barth APRN.SUSTAINABILITY ENGINEER Work Phone: NEUR [facility]AC[facility] INDEPENDENCEComment on above:Pain Start: 08-08-2022 End: 35-25-2560hkgazjpsnbAzbwama Samples Work Phone: NeurologyComment on above:Intractable chronic migraine without aura and with status migrainosus (Primary Dx)Start: 08-08-2022 End: 06-59-1085Jrbjaslzgxfv consultation with Jodi Borrego MD Work Phone: ccF [facility] MAINStart: 53-44-1572mlhwrcttlw Jesse Samples Work Phone: NeurologyComment on above:Name of medicationStart: 07-28-2022 End: 79-16-1639uggvjwmpjvRsgsplhz Main Chair 8 Work Phone: NeurologyComment on above:Intractable chronic migraine without aura and with status migrainosus (Primary Dx)Start: 07-21-2022 ambulatoryDR ZAY ROOPA .Facility:U3Xjzfk: 03-07-8328Ejgeaomhs for other preprocedural examinationDR ZAY ROOPA .[facility] 07-[facility]2022 End: 48-64-9712sbguqrycgyOW ZAY ROOPA .Facility:O9Kyypv: 07-12-2022 End: 12-82-5710Jvucqsdpb for other preprocedural examinationDR ZAY ROOPA . Facility:Q2Rqgut: 27-41-3597uppjansbziST-C SUZAN Paytoncility:[facility] Start: 95-19-3387Utasffoiz encounterSagar Barth APRN.CNP Work Phone: NeurologyComment on above:Appointment (infusion)Start: 06-20-2022 End: 14-16-8886pugjdhgkasFQRRZ SAYFacility:A8Hkrkr: 06-19-2022 End: 93-97-1657wrcfnpfhmkNNBTDW RODRIGUEZ .Facility:K7Vfimn: 85-82-8055Rxskgkwxs to establishmentStephen Samples Work Phone: NeurologyComment on above:AdmissionStart: 06-13-2022 ambulatoryStephen Samples Work Phone: [facility] IIIStart: 06-11-2022 End: 24-12-1940rryrbzdwbnHIPKNLC RAPP .Facility:Y6Jrdyu: 06-08-2022 End: 05-84-6102abhxnjquwxNP CHELO PAULINO .Facility:F7Qnhqk: 06-07-2022 ambulatoryStephen Samples Work Phone: NeurologyComment on above:MigrainesStart: 05-23-2022 End: 64-16-1268xdvdaggywzDPLMNXM M MANONFacility:L9Mhfxn: 05-08-2022 End: 91-93-3325dhtjiwqeugOXHIMZ DIAB .Facility:I1Lgrvo: 03-31-2022 End: 10-86-6452xjzkpthwwpYV DERIK R DANIELSFacility:Q6Derez: 01-14-2022 End: 19-42-8830szqqphhfqoJTMUFNT D KATKOFacility:M3Accyd: 01-07-2022 End: 28-56-3955zsguleikymIXHMA PARKERFacility:H0Txqbo: 78-23-2751ehldtlksjo Jesse Samples Work Phone: NeurologyComment on above:MedicationStart: 12-03-2021 End: 29-46-7222Zvcohjm encounter procedureStephen Samples Work Phone: NeurologyComment on above:Chronic migraine w/o aura, not intractable, w/o stat migr (Primary Dx)Start: 11-10-2021 End: 42-10-1914ujuxskqtmoZjggLibia Saldaña PA-C Work Phone: NeurologyComment on above:Seizure-like activity (HCC) (Primary Dx)Start: 11-10-2021 End: 96-38-6820Azwjzhsblhqp consultation with Farideh Saldaña PA-C Work Phone: ccf [facility] MAINStart: 40-99-1902tzhkomkbzasilas Dolan MD, PhD Work Phone: ccf [facility] MAINStart: 92-65-7370Gthsxmo encounter Mj Dolan MD, PhD Work Phone: NeurologyComment on above:Request Veido appointment Start: 62-38-8237qkivgdraqyHhavl Ying MD, PhD Work Phone: ccf [facility] MAINStart: 58-48-7714Wzlygbd encounter Mj Dolan MD, PhD Work Phone: NeurologyComment on above:AppointmentStart: 11-08-2021 Telephone encounterTyrone Dolan MD, PhD Work Phone: NeurologyComment on above:OrdersStart: 11-04-2021 End: 86-16-0271fuzeocpeogLKXXM PARKERFacility:Q0Mebzk: 10-29-2021 End: 06-31-8587erymfzcmqaSawpt Ying MD, PhD Work Phone: NeurologyComment on above:Psychogenic nonepileptic seizure (Primary Dx); Spells of trembling; Chronic intractable headache, unspecified headache typeStart: 10-29-2021 End: 13-34-4283Wnxxgqdadyxm consultation with Alvaro Dolan MD, PhD Work Phone: ccf [facility] MAINStart: 75-52-2210Dxaywsn encounter Becka Storey MD Work Phone: NeurologyComment on above:Seizure-like activity (HCC) (Primary Dx)Start: 10-19-2021 End: 85-01-7116Uxdkfphgfs and management of [facility]ertart: 10-19-2021 End: 87-73-6561Rjwzzcdadf and management of inpatientLucila Mota MD Work Phone: STVZ 1B Neuro ICUStart: 10-19-2021 End: 91-24-5335slpdevsfysHSKGUU H FAWWADFacility:A9Wuobe: 10-07-2021 End: 59-90-2379dfclpsedhuKP ZAYVikas GREERO .Facility:N7Drmus: 10-06-2021 End: 43-79-9037ematuhdbqkUGGCEHZ D KATKOFacility:M1Oribr: 10-03-2021 End: 26-88-0651oepahggjfmCCEJH PARKERFacility:I0Ucsmf: 10-01-2021 End: 49-46-1718Wzezzwmbjh and management of inpatientDR DERIK WEBERFacility:H1 Start: 63-23-6615Ltoenpesp for preprocedural laboratory examinationDR ZAY BLAS .[facility] HospitalStart: 09-29-2021 End: 81-56-8240whffaxbbeeOH ZAY GREERO .Facility:X7Gfcsf: 09-29-2021 End: 61-07-1134Pnznbrnkw for preprocedural laboratory examinationDR ZAY GREERO .Facility:F5Zhnvi: 09-21-2021 End: 77-34-9229sxebbxkchnBL DERIK WEBERFacility:Y9Mrkzx: 09-14-2021 End: 78-45-7000qflsddzuunYM DERIK WEBERFacility:Y6Nxwzo: 08-14-2021 End: 87-31-8062kimyplydibRBACTF RAUCHFacility:W6Azasq: 08-14-2021 End: 31-38-1706hdlftkfkusFHYHQB RAUCHFacility:Y5Muxrc: 12-24-2020 End: 85-81-8143Tnyaugurj department patient visitDERIK KENYONdrakevikas [facility] Centertart: 12-24-2020 End: 96-25-8460Aonvodvef department patient visitJosetamela Joshua DO Work Phone: [facility] EDComment on above:Migraine without status migrainosus, not intractable, unspecified migraine type (Primary Dx)Start: 02-18-2020 End: 33-69-9685Imwgvtwav encounterImad Cordelia Work Phone: NeurologyComment on above:Future Appointment ([place], [place], [place]) Procedures DateProcedureProcedure DetailPerforming ClinicianStart: 39-23-7150Xmstu depression screening assessmentAssumpta Raul DIRECTOR TRUST-SUSTAINABILITY ENGINEER Work Phone: Start: 64-45-6592Ctffa depression screening assessment Corine Gold MD Work Phone: Start: 84-19-9721Hddfh depression screening assessment Halima Johns DIRECTOR TRUST-SUSTAINABILITY ENGINEER Work Phone: Start: 50-06-8925Lcjvw dip stick/tablet rgnt non-auto w/o micrscpCorey Roopa DO Work Phone: Start: 01-70-3955Sjsse depression screening assessment Corine Gold MD Work Phone: Start: 24-81-2441MEC,APTIMA HPV,AGE GDLNCorey Roopa DO Work Phone: Start: 92-98-1026Hveuqxaptpqgv metabolic panelAnnetta Rodriguez MD Work Phone: start: 10-74-3703Yayap s aureus methicillin resist amp probe tqJaziel Crump MD Work Phone: Start: 17-14-5786Inggd metabolic panel calcium total Katina Debra Mckayla DO Work Phone: start: 82-57-8952Ngr bact xcpt urine blood/stool aerobic Bárbara Toussaint MD Work Phone: Start: 35-63-2117Xo abdomen & pelvis w/contrast materialJohnirene Velazquez MD Work Phone: Start: 04-08-2024 End: 02-98-9651Mgdwx metabolic panel calcium totalDaniel Compa Melton DO Work Phone: [phone]: 87-96-0516Rbfphrq function panelYordy Melton DO Work Phone: [phone]: 95-05-4788Xdqiq dip stick/tablet rgnt auto w/o microscopyDaconstantine Melton DO Work Phone: Start: 49-41-0097Gbkcypa bacterial quanttative colony count urineJosemaj Velazquez MD Work Phone: Start: 39-83-8670Jkquofgzkl exam chest single view Rohan Velazquez MD Work Phone: Start: 91-88-8938OERZ/FLU A+B/RSV BY NAAT/MOLECULAR (M4RT COLLECTION TUBE)Rohan Velazquez MD Work Phone: Start: 18-95-5653Jsh routine ecg w/least 12 lds trcg only w/o i&Cheryl Velazquez MD Work Phone: Start: 04-08-2024 End: 77-51-4885Isvcn count complete auto&auto difrntl wbcMotim Dixon MD Work Phone: Start: 04-08-2024 End: 54-56-1710Uhfctjt bacterial blood aerobic w/id isolatesDaconstantine Melton DO Work Phone: Start: 33-72-3826Hozwv depression screening assessment Svetlana HERNANDEZ Work Phone: Start: 71-27-3851Bqmdpxlj screenMetro 3Start: 35-11-3422Hlzsx typing serologic Gabriela Martinez MD Work Phone: Start: 92-88-7604ZSQBQYOR Tyson Martinez MD Work Phone: Start: 16-15-8617Oha routine ecg w/least 12 lds trcg only w/o i&Verónica Martinez MD Work Phone: Start: 81-18-3193PRCMVJLME FUNCTION TESTSopal Peña DO Work Phone: Start: 77-61-6412JZ PELVIS W/ TRANSVAGINALGeneric External Data ProviderStart: 30-36-8990Fzlaihpg identified in Urine by Culture Generic External Data ProviderStart: 27-33-1717Swasu depression screening assessmentMundo Martinez MD Work Phone: Start: 73-62-4225Mtija depression screening assessment Tyrone Dolan MD, PhD Work Phone: Start: 68-43-2456RRN VIDEO MONITORINGMaanupama Perez DIRECTOR TRUST - SUSTAINABILITY ENGINEER Work Phone: Start: 68-80-7204ERLAD METABOLIC PANEL W/ REFLEX TO MG FOR LOW KChan Rikki Mota MD Work Phone: Start: 59-40-6765Xyikn count complete auto&auto difrntl wbcMaanupama Perez DIRECTOR TRUST - SUSTAINABILITY ENGINEER Work Phone: Start: 96-34-8333BBWVIPTG PLATELET FRACTIONMaanupama Perez DIRECTOR TRUST - SUSTAINABILITY ENGINEER Work Phone: Start: 76-30-7074Hypys of lactateMaanupama Perez DIRECTOR TRUST - SUSTAINABILITY ENGINEER Work Phone: Start: 41-03-6497Tkh routine ecg w/least 12 lds w/i&r Lo Perez DIRECTOR TRUST - SUSTAINABILITY ENGINEER Work Phone: Start: 13-18-4834Hqg brain brain stem w/o w/contrast materialMaanupama Perez DIRECTOR TRUST - SUSTAINABILITY ENGINEER Work Phone: Start: 90-99-0494WIAWJRTMWKU CARE EVALUATION ONLY Lo Perez DIRECTOR TRUST - SUSTAINABILITY ENGINEER Work Phone: Start: 39-46-4540Qdphkexfe of Bilateral Fallopian Tubes, Open ApproachINGRID BRICE .Start: 35-66-8898Mlwqtziif of Uterus, Open ApproachINGRID BRICE .Start: 37-99-8302Tskzk count complete auto&auto difrntl wbcKeven Ching DO Work Phone: Start: 21-25-5641Os head/brain w/o contrast material Keveneduardo Ching DO Work Phone: Plan of Treatment DateCare ActivityDetailAuthorStart: 94-92-6853Dixwh BMI ScreeningAdult BMI ScreeningUniversity [facility] SystemStart: 03-21-9384Tykvfzkiwn ScreeningDepression ScreeningAccess [facility] SystemStart: 02-66-2951Urqvzra ScreeningTobacco ScreeningAccess [facility] SystemStart: 67-33-9680Eeogq BMI ScreeningAdult BMI ScreeningAccess [facility] SystemStart: 26-56-3264Ltrbnns ScreeningTobacco ScreeningAccess [facility] SystemStart: 51-23-0840Ifxuu BMI ScreeningAdult BMI ScreeningAccess [facility] SystemStart: 32-82-0243Ujqmrvwlqt ScreeningDepression ScreeningUniversity [facility] SystemStart: 18-43-3818Nbxstvu ScreeningTobacco ScreeningUniversity [facility] SystemStart: 04-22-2499Qpqlj BMI ScreeningAdult BMI ScreeningAccess [facility] SystemStart: 68-81-8626Pbxlq BMI ScreeningAdult BMI ScreeningAccess [facility] SystemStart: 70-80-2056Ogwwfax ScreeningTobacco ScreeningUniversity [facility] SystemStart: 35-11-0727AQgN,Tdap and Td Vaccines (7 - Td or Tdap)DTaP,Tdap and Td Vaccines (7 - Td or Tdap)[facility] Start: 77-37-1534MLoO/Tdap/Td vaccine (7 - Td or Tdap)DTaP/Tdap/Td vaccine (7 - Td or Tdap)[facility]ITALStart: 93-96-4765Lytbc microalbumin profile [facility] Hospitaltart: 91-73-0480Pbmkz BMI ScreeningAdult BMI ScreeningUniversity [facility]als [facility] SystemStart: 44-15-0101Sjjdggukfv ScreeningDepression ScreeningUniversity [facility]als [facility] SystemStart: 49-85-0545Msekcjj ScreeningTobacco ScreeningAccess [facility] SystemStart: 77-27-4060Gwqitgx ScreeningTobacco ScreeningAccess [facility] SystemStart: 46-71-0109Hpevj BMI ScreeningAdult BMI ScreeningProSt. Mary'S Medical [facility]ca [facility] SystemStart: 71-67-3063Shcknby ScreeningTobacco ScreeningC[facility] Start: 23-97-1521Qjfir BMI ScreeningAdult BMI ScreeningAccess [facility] Start: 39-58-2988Rivilrq ScreeningTobacco Screening[facility] SystemStart: 65-50-4488Xeayk BMI ScreeningAdult BMI Screening[facility] SystemStart: 62-42-5297Pjpgzaksga ScreeningDepression ScreeningAccess [facility] SystemStart: 86-08-8142Rvwybjm ScreeningTobacco Screening[facility] SystemStart: 64-97-6155Qjmmp BMI ScreeningAdult BMI Screening[facility] SystemStart: 16-66-6065Spizm BMI ScreeningAdult BMI ScreeningAccess [facility] SystemStart: 76-34-8363Vtjyhunlsf ScreeningDepression ScreeningUniversity [facility]als [facility] SystemStart: 81-86-5568Iukigyz ScreeningTobacco ScreeningUniversity [facility]als [facility] SystemStart: 43-02-6416Npqsu BMI ScreeningAdult BMI ScreeningAccess [facility] SystemStart: 99-31-6970Jqemdzl ScreeningTobacco ScreeningAccess [facility] SystemStart: 94-65-0262Kdddt BMI ScreeningAdult BMI ScreeningUNC Health Rextart: 30-99-3050Cdlkbqx ScreeningTobacco ScreeningUNC Health Rextart: 03-25-2025 End: 02-02-4665Lwdptxh encounter phcqzxpex64/03/2026 9:45 AM EST Office Visit [facility] [address] [place] [phone] Vincent Peña DO [address] [address] [facility]/Sleep MedicineStart: 89-97-2445Kinnu BMI ScreeningAdult BMI Screening [facility] SystemStart: 57-66-6164Yoxayug ScreeningTobacco Screening [facility] SystemStart: 09-52-6993Jrwoq BMI ScreeningAdult BMI Screening [facility] SystemStart: 20-90-4408Dmrbaxv ScreeningTobacco Screening [facility] SystemStart: 02-27-2025 End: 87-01-0143Zjnapdle Njygqfm8502/27/2025 8:00 PM EST Clinical Support [facility] Sleep [facility] [address] [place] [phone] Corine Gold MD [address] [place] [address] [facility] Sleep DisordersStart: 01-30-2025 End: 64-62-4205Uebgxiym Cywinmo8501/30/2025 8:00 PM EST Clinical Support [facility] Sleep Disorders [address] [place] [phone] Corine Gold MD [address] [place] [address] [facility] Sleep DisordersStart: 01-02-2025 End: 99-26-9556Makohsh encounter pmaouonpm69/13/2025 11:15 AM EST Office Visit [facility] [address] [place] [phone] Corine Gold MD [address] [place] [address] [facility] MedicineStart: 12-17-2024 End: 48-43-0360Jyjcwfe encounter uhubrdlzi71/28/2025 9:30 AM EDT Office Visit [facility] [address] [phone] Vincent Peña DO [address] [address] [facility] MedicineStart: 12-10-2024 End: 82-31-7605Zvsowfu encounter fkczmeghg56/21/2025 2:30 PM EDT Office Visit [facility] [address] [place] [address] [address] [place] [address] Corine Gold MD [address], [place], [place] [phone] [facility] MedicineStart: 12-10-2024 End: 69-74-3057Lykeiytfjujaxle 4 or more parameters with PAP titration Polysomnography 4 or more parameters with PAP titration Sleep Center Routine JUAN DAVID (obstructive sleepapnea) Expected: 12/10/2024 (Approximate), Expires: 12/10/2025[facility] SystemComment on above:Expected: 12/10/2024 (Approximate), Expires: 12/10/2025Start: 12-10-2024 End: 60-26-6555WMF DiagnosticPSG Diagnostic Sleep Center Routine JUAN DAVID (obstructive sleep apnea) Expected: 12/10/2024 (Approximate), Expires: 12/10/2025[facility] SystemComment on above:Expected: 12/10/2024 (Approximate), Expires: 12/10/2025Start: 12-10-2024 End: 99-67-0114LANS-CoV-2 (COVID-19) RNA [Presence] in Respiratory specimen by SAURABH with probe detectionSARS COV 2 (COVID-19) Microbiology Routine JUAN DAVID (obstructive sleep apnea) Expected: 12/10/2024 (Approximate), Expires: 03/12/2025[facility] Work Phone: Comment on above:Expected: 12/10/2024 (Approximate), Expires: 03/12/2025Start: 10-25-2024 End: 33-65-9843hvhjdsbevd65/05/2025 1:30 PM EDT [facility] [address] [place] [address] VyeptiNeurologyComment on above: VyeptiStart: 21-86-1946Ifzhvyvbp vaccinationUniversity Hospitals Lake West Medical Center SystemStart: 10-15-2024 End: 01-65-5646Wdqoiwe encounter gbjicjhmu74/26/2025 8:10 AM EDT Office Visit [facility] [address] [place] [address] Zay Blas, [address] [place] [address] [facility] OBStart: 09-24-2024 End: 05-34-6233kfkcuovfhn44/05/2025 10:00 AM EDT [facility] Neurology [address] [place] [address] Curtis Lepe PA-C [address] [place], [place] [phone] Head ache controlNeurologyComment on above:Head ache controlStart: 09-03-2024 End: 18-39-0325Imemmrg encounter swopdtdke36/15/2025 10:20 AM EDT Office Visit [facility] [address] [facility] [place] [phone] Zay Blas, [address] [place] [address] ArrivedNOMS [facility] OBComment on above:ArrivedStart: 08-20-2024 End: 08-72-2088Atmkyol encounter bhamzquff30/01/2025 9:15 AM EDT Office Visit Neurology [address] [place] [address] Patricia Franco PA-C [address] [place] [address] INFUSIONDAY 3NeurologyComment on above:INFUSION DAY 3Start: 08-20-2024 End: 10-19-4092teuvofrghn08/01/2025 9:00 AM EDT Infusion Center Neurology [address] [place] [address] NON-DHE 3NeurologyComment on above: NON-DHE 3Start: 08-19-2024 End: 10-35-2196xygpevjhkd22/30/2025 9:00 AM EDT Infusion Center Neurology [address] [place] [address] NON-DHE 2NeurologyComment on above: NON-DHE 2Start: 08-19-2024 End: 10-89-9644Bpafxwa encounter rawnqekro04/30/2025 9:00 AM EDT Office Visit Neurology [address] [place] [address] Raiza Shields APRN.SUSTAINABILITY ENGINEER [address] [place] [address] Infusion dayNeurologyComment on above:Infusion dayStart: 08-02-2024 End: 93-60-1802Vfldrvg encounter iiugnwlwy42/13/2025 11:00 AM EDT Office Visit Neurology [address] [place] [address] Curtis Lepe PA-C [address] [place] [address] INFUSION DAY 1 - PT ARRIVES AT 10AMNeurologyComment on above:INFUSION DAY 1 - PT ARRIVES AT 10AMStart: 08-02-2024 End: 36-72-6298mhmisdwral06/13/2025 10:00 AM EDT Infusion Center Neurology [address] [place] [address] NON-DHE 1 per PSNeurologyComment on above:NON-DHE 1 per PSStart: 07-25-2024 End: 42-95-3202ivhqknqfgg96/05/2025 1:00 PM EDT Infusion Center Neurology [address] [place] [address] VyeptiNeurologyComment on above: VyeptiStart: 07-01-2024 End: 18-27-9615Wfiuqyt encounter bvveagfki56/12/2025 8:30 AM EDT Office Visit [facility] [address] [facility] [place] [phone] Zay Blas, DO [address] [facility] [place] [address] Juan M RAJPUT OBComment on above:ArrivedStart: 06-10-2024 End: 30-00-8724TJT ISOLATION AND STORAGEDNA ISOLATION AND STORAGE Lab Routine Family history of genetic disorder Expected: 06/10/2024 (Approximate), Expires: 06/10/2025[facility]Comment on above:Expected: 06/10/2024 (Approximate), Expires: 06/10/2025Start: 06-10-2024 End: 43-39-8811MPPAMWKM SPECIMEN LABEL- REQUIRED FOR INHOUSE GENETIC TESTING GENETICS SPECIMEN LABEL- REQUIRED FOR INHOUSE GENETIC TESTING Lab Routine Family history of geneticdisorder Expected: 06/10/2024 (Approximate), Expires: 06/10/2025[facility] Work Phone: comment on above:Expected: 06/10/2024 (Approximate), Expires: 06/10/2025Start: 06-06-2024 End: 47-24-5235Bvcjzywhyqbb consultation with fepidxt9506/06/2024 4:30 PM EDT Telemedicine [facility] [address] [place] [address] [place] [address] Corine Gold MD [address] [place] [address] [facility] MedicineStart: 05-28-2024 End: 72-43-7982Cmyonvb encounter tibaakbhk12/08/2025 1:00 PM EDT Office Visit [facility] [address] [address] Vincent Peña DO [address] [address] [facility]/Sleep MedicineStart: 05-14-2024 End: 27-98-9853Kwoxkwf encounter uvtphpziu81/25/2025 9:00 AM EDT Office Visit Joie Antonio [facility] - Medical Oncology [address] [place] [phone] Svetlana Ye PA [address] [place] [address] [facility] - Medical OncologyStart: 05-03-2024 End: 70-47-1660vhmhykvkrg72/14/2025 9:30 AM EDT [facility] Neurology [address] [place] [address] Curtis Lepe PA-C [address]00 [place] [address] Head aches adding something elseNeurologyComment on above:Head aches adding something elseStart: 05-02-2024 End: 27-48-7979exkqhnolzu92/13/2025 2:30 PM EDT Infusion Center Neurology [address] [place] [address] vyepti infusionNeurologyComment on above:vyepti infusionStart: 04-30-2024 End: 15-43-4583Dijxhuu encounter ahluisuki91/11/2025 9:00 AM EDT Office Visit Joie Antonio [facility] - Medical Oncology [address] [place] [phone] Svetlana Ye PA [address] [place] [address] Joie Antonio [facility] Medical OncologyStart: 04-25-2024 End: 69-10-4247Xgtzzds encounter zdnpitrlr49/06/2025 1:00 PM EST Office Visit [facility] [address] [facility] [place] [place] [address] Corine Gold MD [address] [place] [address] [facility]icians Family MedicineStart: 04-16-2024 End: 60-57-6664Fxqpfgg encounter wehvvahvh48/25/2025 8:30 AM EST Office Visit [facility] [address] [place] [address] Zay Blas, [address] [place] [address] [facility] BCP OBStart: 04-15-2024 End: 53-51-3624Ouvbgez encounter pjuxocoqj36/24/2025 9:00 AM EST Office Visit [facility] Gynecology Oncology, A Department of [facility] [address] [place] [address] Svetlana Ye PA [address] [place] [address] [facility] Gy[facility]cology Oncology, [facility]: 04-10-2024 End: 94-25-9842Udhqipw encounter pzsoypwfx57/19/2025 11:30 AM EST Office [facility] [address] [place] [phone] Svetlana Ye PA [address] [facility], [place] [phone] (Work) Joie Fernández [facility] - Medical OncologyStart: 04-10-2024 End: 20-58-7809Fzsibrfwiomv / ancillary services barjfzxawp36/19/2025 9:30 AM EST Ancillary Procedure [facility] [address] [place] [phone] [facility] BCP OBStart: 03-29-2024 End: 68-45-2830stnaqdotyd37/07/2025 1:30 PM EST Infusion Center Neurology [address] [place] [address] vyepti infusionNeurologyComment on above:vyepti infusionStart: 03-28-2024 End: 24-84-2311Lizhtugrf to same day surgery ggcwqh9703/28/2024 9:00 AM EST - 03/28/2024 12:45 PM EST Surgery [facility] [address] [place] [phone] Mundo Martinez MD [address] [place] [address] DAVINCI LYSIS OF ADHESIONSCleveland Clinic [facility] General SurgeryComment on above:DAVINCI LYSIS OF ADHESIONSStart: 03-28-2024 End: 31-37-4554TICWPRD LYSIS OF ADHESIONSDAVINCI LYSIS OF ADHESIONS OVARIAN CYST BILATERAL 03/28/2024 9:00 AM [facility] 03-28-2024 End: 73-22-8397GRDNUHC SALPINGO OOPHORECTOMYDAVINCI SALPINGO OOPHORECTOMY OVARIAN CYST BILATERAL 03/28/2024 9:00 AM [facility]: 82-88-8529Tijvuwyqck hospital visit by nstvihops97/06/2025 9:00 AM EST Hospital Encounter [facility] [address] [place] [phone] Mundo Martinez MD [address] [place] [address] [facility] Start: 03-25-2024 End: 68-89-9208Uyckihl encounter ytzsecvbf16/03/2025 2:15 PM EST [facility] On [address] [phone] [facility] Start: 03-22-2024 End: 25-39-0945puqqmrvkqd44/31/2025 1:30 PM [facility] Infusion Center Neurology [address] [place] [address] vyepti infusionNeurologyComment on above:vyepti infusionStart: 03-20-2024 End: 15-98-0926GE Chest WO contrastCT chest without contrast Imaging Routine Moderate asthma with acute exacerbation, unspecified whether persistent Expected: 03/20/2024, Expires: 03/20/2025[facility] Work Phone: Comment on above:Expected: 03/20/2024, Expires: 03/20/2025Start: 02-28-2024 End: 80-71-4624QCA tumor markerAFP tumor marker Lab Routine Complex ovarian cyst Expected: 02/28/2024 (Approximate), Expires: 02/27/2025[facility] HealthcareComment on above:Expected: 02/28/2024 (Approximate), Expires: 02/27/2025Start: 02-28-2024 End: 34-77-9753LT 125CA 125 Lab Routine Complex ovarian cyst Expected: 02/28/2024 (Approximate), Expires: 02/27/2025[facility] HealthcareComment on above: Expected: 02/28/2024 (Approximate), Expires: 02/27/2025Start: 02-28-2024 End: 97-47-4757Xmzfjzctjjtttjxu Ag [Mass/volume] in Serum or PlasmaCEA Lab Routine Complex ovarian cyst Expected: 02/28/2024 (Approximate), Expires: 02/27/2025[facility] HealthcareComment on above:Expected: 02/28/2024 (Approximate), Expires: 02/27/2025Start: 02-28-2024 End: 54-33-4181SSR, tumor markerHCG, tumor marker Lab Routine Complex ovarian cyst Expected: 02/28/2024 (Approximate), Expires: 02/27/2025[facility] Comment on above:Expected: 02/28/2024 (Approximate), Expires: 02/27/2025Start: 02-28-2024 End: 00-84-0737Gatpqyt dehydrogenase, isoenzymesLactate dehydrogenase, isoenzymes Lab Routine Complex ovarian cyst Expected: 02/28/2024 (Approximate), Expires: 02/27/2025[facility] Work Phone: comment on above:Expected: 02/28/2024 (Approximate), Expires: 02/27/2025Start: 02-28-2024 End: 19-14-9916MF PelvisUS Pelvis w/ TV Imaging Routine Pelvic pain in female Complex ovarian cyst Expected: 02/28/2024, Expires: 02/27/2025[facility] Comment on above:Expected: 02/28/2024, Expires: 02/27/2025Start: 02-28-2024 End: 27-87-0116Wxtjtyx encounter ogmibbmsb64/08/2025 11:10 AM EST Office Visit [facility] [address] [place] [place] [phone] Zay Blas DO [address] [facility] [place] [address] [facility] BCP OBStart: 02-22-2024 End: 12-35-0570Zuxtyvh encounter jbcvtuzeu13/02/2025 11:15 AM EST Office Visit [facility] [address] [place] [address] Lamont Blair MD [address] [place] [address] [facility] FMStart: 02-09-2024 End: 94-14-5582AT Abdomen and Pelvis WO and W contrast IVCT abdomen pelvis w and wo IV contrast Imaging Routine Generalized abdominal pain Intractable nausea and vomiting Expected: 02/09/2024, Expires: 02/08/2025[facility] Work Phone: Comment on above:Expected: 02/09/2024, Expires: 02/08/2025Start: 02-05-2024 End: 02-40-1914kteeopcizu86/16/2024 1:45 PM EST [facility] Neurology [facility] [address] [place] [address] Sagar Barth APRN.SUSTAINABILITY ENGINEER [address] [facility], [id number] MingrainsNeurology Headache [facility] Centeromment on above:MingrainsStart: 01-24-2024 End: 29-36-4589Ljqprxg encounter nqlmtolgq15/04/2024 3:20 PM EST Office Visit [facility] OB [address] [place] [address] Zay Blas, DO [address] [place] [address] NOM[facility] BCP OBStart: 01-23-2024 End: 23-35-0076Wjrrn metabolic 1998 panel - Serum or PlasmaBasic metabolic panel Lab Routine Generalized edema Expected: 01/23/2024 (Approximate), Expires: 04/2024[facility] HealthcareComment on above:Expected: 01/23/2024 (Approximate), Expires: 01/22/2025Start: 01-23-2024 End: 26-41-4880OVD W Auto Differential panel - BloodCBC and differential Lab Routine Generalized edema SOB (shortness of breath) on exertion Expected: 1 03/25/2023 (Approximate), Expires: 01/22/2025[facility] HealthcareComment on above: Expected: 01/23/2024 (Approximate), Expires: 01/22/2025Start: 01-23-2024 End: 89-33-0932Uakywvc function 2000 panel - Serum or PlasmaHepatic function panel Lab Routine Generalized edema SOB (shortness of breath) on exertion Expected: 01/23/2024 (Approximate), Expires: 01/22/2025[facility] HealthcareComment on above:Expected: 01/23/2024 (Approximate), Expires: 01/22/2025Start: 01-23-2024 End: 15-88-9159Bwzuwxvfrrb peptide B [Mass/volume] in BloodB-type natriuretic peptide Lab Routine Generalized edema Expected: 01/23/2024 (Approximate), Expires: 01/22/2025[facility] HealthcareComment on above:Expected: 01/23/2024 (Approximate), Expires: 01/22/2025Start: 01-23-2024 End: 80-56-2674IC Chest 2 ViewsXR chest 2 views Imaging Routine Mild persistent asthma with (acute) exacerbation (CMS/HCC) Generalized edema SOB (shortness of breath) on exertion Expected: 01/23/2024, Expires: 01/22/2025[facility] Work Phone: Comment on above:Expected: 01/23/2024, Expires: 01/22/2025Start: 01-23-2024 End: 05-58-2651Glduxqf encounter procedureNOMS CWM FMComment on above:Arrived Start: 01-22-2024 End: 54-95-1260Iqdrmrc encounter iryrmbwup09/02/2024 2:30 PM EST Office Visit Neurology [address] [place] [address] Raiza Shields, DIRECTOR TRUST.SUSTAINABILITY ENGINEER [address] [place] [address] Infusion Day #3NeurologyComment on above:Infusion Day #3Start: 01-22-2024 End: 23-77-4702citkheibpc44/02/2024 2:00 PM EST Infusion Center Neurology [address] [place] [address] Non-DHE Infusion Day #3Neurology Comment on above:Non-DHE Infusion Day #3Start: 01-19-2024 End: 54-64-3747rfisxxlkay10/29/2024 9:30 AM EST Infusion Center Neurology [address] [place] [address] Non-DHE Infusion Day #2Neurology Comment on above:Non-DHE Infusion Day #2Start: 01-09-2024 End: 92-38-6857Iyxphms encounter procedureNOMS CWM FMComment on above:Arrived Start: 01-05-2024 End: 08-06-4931aogyhxwntq79/15/2024 1:00 PM EST Infusion Center Neurology [address] [place] [address] VyeptiNeurologyComment on above: VyeptiStart: 12-12-2023 End: 61-66-1386Yqjagki encounter layapyrij41/22/2024 3:45 PM EDT Office Visit [facility] C[facility] FM [address] [place] [address] Lamont Blair MD [address] [place] [address] NOMS CWM FMStart: 12-11-2023 End: 33-71-5096Kodrhry encounter vvureohsw94/21/2024 1:00 PM EDT Office Visit [facility] OB [address] [facility] [place] [address] Zay Blas, [address] [place] [address] [address] [place], [place] [phone] ArrivedNOMS BCP OBComment on above:ArrivedStart: 11-15-2023 End: 10-44-4186Fwyqfsg encounter zxrpnbobz31/25/2024 8:45 AM EDT Office Visit [facility] C[facility] FM [address] [place] [address] Lamont Blair MD [address] [place] [phone] ArrivedNOMS CWM FMComment on above:ArrivedStart: 11-06-2023 End: 86-15-1559Iiogtqu encounter /16/2024 11:30 AM EDT Office Visit [facility] NEUR [address] [facility] [address] [place] [address] Jose Martin Lopez MD [address] [facility] [address] [place] [phone] NOMS SWS NEURStart: 10-31-2023 End: 93-17-4399Sqqzazh encounter fajghfset93/10/2024 2:30 PM EDT Office Visit Neurology [address] [place] [address] Tyrone Dolan MD, PhD [address] [facility] [address] [place] [address] SeizureNeurologyComment on above:SeizureStart: 98-61-4617Lmwmb-19 Vaccine ( season)Covid-19 Vaccine ()[facility]Start: 07-64-9893Bykrn-19 Vaccine ()Covid-19 Vaccine ()[facility]: 42-74-5117Rthcyhvlq vaccinationWayne Healthcare Main Campus Start: 10-13-2023 End: 84-82-1113lciwlwpkkm20/23/2024 1:00 PM EDT Infusion Center Neurology [address] [place] [phone] Vyepti InfusionNeurologyComment on above:Vyepti InfusionStart: 10-10-2023 End: 57-06-6441Ergvjee encounter gdvyagxqy66/20/2024 9:15 AM EDT Office Visit [facility] C[facility] FM [address] [place] [address] Lamont Blair MD [address] [place] [place] [address] ArrivedNOMS CWM FMComment on above:ArrivedStart: 09-19-2023 End: 02-92-4395Ldceafj encounter dhnyfivyk63/30/2024 2:30 PM EDT Office Visit Neurology Headache [facility] [address] [place] [address] Sagar Barth APRN.SUSTAINABILITY ENGINEER [address] [place] [address] Migraines Nerve BlockNeurology Headache [place] FHCComment on above:Migraines Nerve BlockStart: 08-18-2023 End: 64-08-3372Nmklzmr encounter oybpdwklc03/28/2024 9:30 AM EDT Office Visit Neu[facility] [address] [facility] [facility] [place] [address] Curtis Lepe PA-C [address] [place] [address] NERVEBLOCKNeurologyComment on above:NERVE BLOCKStart: 65-06-4395Czlqixwbdg ScreeningDepression ScreeningParma [facility] General Hospital Health SystemStart: 82-89-3022Tyvgjtjayg AssessmentDepression AssessmentMercy Health Allen Hospitaltart: 64-81-2993Sgkyh depression screening assessmentDEPRESSION SCREENINGMercy Health Allen Hospitaltart: 44-44-0279Mhycq- 19 Vaccine ()Covid-19 Vaccine ()[facility] Hospitaltart: 25-79-3543Pduyvjujs vaccinationMercy Health Allen Hospitaltart: 02-20-2022 DEPRESSION ASSESSMENTDEPRESSION ASSESSMENTCleOhioHealth Dublin Methodist Hospitaltart: 10-26-2021 End: 59-95-5723CTUA-CoV-2 (COVID-19) RNA [Presence] in Respiratory specimen by SAURABH with probe detectionPRE-PROCEDURE & PRE-OPERATIVE COVID Microbiology Routine Seizure-like activity (HCC) Expected: 10/26/2021, Expires: [facility] Work Phone: Comment on above:Expected: 10/26/2021, Expires: 10/26/2022Start: 39-77-3963Gaugwehjz vaccinationBON UNIVERSITY HOSPITALS [facility] MEDICAL CENTERStart: 51-51-5382IAKIIRNFNK ASSESSMENTDEPRESSION ASSESSMENTMercy Health Allen Hospitaltart: 55-65-4985Tymzgcufa vaccinationFlu vaccine (#1)[facility] Work Phone: start: 38-69-8541NZD TESTINGPAP TESTINGMercy Health Allen Hospitaltart: 17-04-2931Faohwksjx for malignant neoplasm of cervixBON UNIVERSITY HOSPITALS CLEVEL[facility] MEDICAL CENTERStart: 79-53-7448Itpksouum B Vaccine (1 of 3 - 19+ 3-dose series) Hepatitis B Vaccine (1 of 3 - 19+ 3-dose series)[facility] Start: 72-03-4044Isnar microalbumin profileMercy Health Allen Hospitaltart: 11-13-2013 Adult BMI Follow Up PlanAdult BMI Follow Up [facility]: 82-36-2934Bnvwjgd ScreeningAnxiety ScreeningMercy Health Allen Hospitaltart: 11-13-2013 Depression ScreeningDepression ScreeningMercy Health Allen Hospitaltart: 11-13-2013 Hepatitis C screeningBON UNIVERSITY HOSPITALS C[facility] MEDICAL CENTERStart: 48-98-0378ESYRFUDDX C SCREENINGHEPATITIS C SCREENINGMercy Health Allen Hospitaltart: 34-90-9516GNA SCREENINGHIV SCREENINGMercy Health Allen Hospitaltart: 38-80-2792WIX screeningHIV ScreeningMercy Health Allen Hospitaltart: 53-54-4461Xrcsubdyj for Chlamydia trachomatisChlamydia screenSentara Leigh Hospital: 83-26-6799PVS screeningHIV screenMountain View Regional Medical Centerart: 97-37-1062NMEP TO ADULT TRANSITION ANNUAL ASSESSMENTPEDS TO ADULT TRANSITION ANNUAL ASSESSMENTMercy Health Allen Hospitaltart: 25-36-8606Sjosyugpz Vaccine (1 of 2 - 13+ 2-dose series)Varicella Vaccine (1 of 2 - 13+ 2-dose series) [facility]: 68-83-3471Mjnlr depression screening assessmentDEPRESSION SCREENINGMercy Health Allen Hospitaltart: 65-07-1046KKICN-19 Vaccine (1)COVID-19 Vaccine (1)[facility] Work Phone: start: 85-19-1261Uwenrjeqpf ScreenDepression ScreenSentara Leigh Hospital: 59-52-2669MKOH TO ADULT TRANSITION INITIAL DISCUSSIONPEDS TO ADULT TRANSITION INITIAL DISCUSSIONMercy Health Allen Hospitaltart: 51-41-8266YRV VACCINE (1 - 2-dose series)HPV VACCINE (1 - 2-dose series) [facility] Hospital[facility]: 49-70-5231ZPI VACCINE (1 - 2-dose series)HPV VACCINE (1 - 2-dose series)[facility] Hospitaltart: 58-04-5280BSoN/Tdap/Td Vaccine (1 - Tdap) DTaP/Tdap/Td Vaccine (1 - Tdap)[facility]: 11-13-1996 MMR Vaccine (1 of 1 - Standard series)MMR Vaccine (1 of 1 - Standard series) [facility]art: 48-33-8876XCPNV-19 Vaccine (#1)COVID-19 Vaccine (#1)[facility]OSPITALUnutility Electric [facility]ITALStart: 63-40-6376AKHJUZTZS B (1 of 3 - 3- dose series)HEPATITIS B (1 of 3 - 3-dose series)[facility] Hospitaltart: 01-76-9015Casyfcund B Vaccine (1 of 3 - 3-dose series)Hepatitis B Vaccine (1 of 3 - 3-dose series)[facility] Hospitaltart: 15-59-3162Mthexibwq C screening Hepatitis C [facility] [employer] Work Phone: End: 64-40-2359Dkqqs-1-Antitrypsin TneyydjqwPiwco-2-Npzcqfvzals Phenotype Lab Routine Moderate asthma with acute exacerbation, unspecified whether persistent 1 Occurrences starting 03/20/2024 until 03/20/2025[facility] HospitalCogniaComment on above:1 Occurrences starting 03/20/2024 until 2093Cveyf-1-Ghfyzhjgruw PxrfbsskuBqasz-3-Okssufgqvzh Phenotype Lab Routine Moderate asthma with acute exacerbation, unspecified whether persistent 03/20/2024 1:12 PM SimplilearnBacteria identified in Blood by Aerobe cultureINVERMART Work Phone: Bacteria identified in Urine by CultureURINE CULTURE, ROUTINE Lab Routine 01/31/2024 11:57 AM [facility] HospitalBacteria identified in Wound by Aerobe cultureWound culture superficial includes gram stain Microbiology Routine 04/08/2024 8:25 PM [employer] Phone: End: 56-33-2016Dtots Metabolic Panel w/ Reflex to MGBasic Metabolic Panel w/ Reflex to MG Lab Routine Daily for 7 Days starting 10/20/2021 until 10/26/2021 [facility] [employer] Phone: comment on above:Daily for 7 Days starting 10/20/2021 until 10/26/2021 End: 52-41-5200OAW W Auto Differential panel - BloodCBC with Auto Differential Lab Routine Daily for 7 Days starting 10/20/2021 until 10/26/2021, 1 completed [employer] Work Phone: comment on above:Daily for 7 Days starting 10/20/2021 until 10/26/2021, 1 completed End: 67-54-5361EAQ W Auto Differential panel - BloodCBC with auto diff Lab Routine Postoperative infection, unspecified type, subsequent encounter 1 Occ urrences starting 05/02/2024 until 05/02/2025[employer] Work Phone: Comment on above:1 Occurrences starting 05/02/2024 until 05/02/2025HLAMYDIA TRACHOMATIS (GENITO/STI)CHLAMYDIA TRACHOMATIS (GENITO/STI) Lab Routine Yeast infection Ordered: 07/01/2024[facility] Comment on above:Ordered: 07/01/2024 End: 99-66-0535Pufubiqivqgry metabolic 2000 panel - Serum or PlasmaComprehensive metabolic panel Lab Routine Postoperative infection, unspecified type, subsequent encounter 1 Occurrences starting 05/02/2024 until 05/02/2025[facility]3KeyIt SystemComment on above:1 Occurrences starting 05/02/2024 until 05/02/2025ytology Cervical or vaginal smear or scraping studyPap Smear Pathology and Cytology Routine Well woman exam with routine gynecological exam Ordered: 04/16/2024[facility] Work Phone: comment on above:Ordered: 04/16/2024 End: 60-45-2032KJE 12 leadECG 12 lead ECG Routine Bilateral ovarian cysts Preop testing 1 Occurrences starting 03/19/2024 until 03/19/2025[employer] Work Phone: Comment on above:1 Occurrences starting 03/19/2024 until 03/19/2025EKG 12 LeadEKG 12 Lead ECG Routine 10/19/2021 5:55 PM EDTBON Geomerics Work Phone: End: 49-14-7996ZBYG AMBULATORY EEGEPIL AMBULATORY EEG NEUROLOGY Routine Psychogenic nonepileptic seizure Spells of trembling 1 Occurrences starting 10/29/2021 until 10/29/2022[facility] Work Phone: Comment on above:1 Occurrences starting 10/29/2021 until 10/29/2022 End: 43-25-6076VOOV EEG LEAD PLACEMENTEPIL EEG LEAD PLACEMENT NEUROLOGY Routine Seizure-like activity (HCC) 1 Occurrences starting 10/26/2021 until 10/26/2022 [facility] Work Phone: Comment on above:1 Occurrences starting 10/26/2021 until 10/26/2022 End: 91-32-3725PWDO EEG ROUTINEEPIL EEG ROUTINE NEUROLOGY Routine Seizure-like activity (HCC) 1 Occurrences starting 11/08/2021 until 11/08/2022[facility] Work Phone: Comment on above:1 Occurrences starting 11/08/2021 until 11/08/2022EPIL VEEG ADMIT TO EMU/PMUEPIL VEEG ADMIT TO EMU/PMU NEUROLOGY Routine Seizure-like activity (HCC) [facility]: [facility] Work Phone: Comment on above:Ordered: 10/26/2021Neisseria gonorrhoeae DNA [Presence] in Unspecified specimen by SAURABH with probe detection Neisseria gonorrhea DNA probe, direct Lab Routine Yeast infection Ordered: 07/01/2024[facility] doFormsComment on above:Ordered: 07/01/2024Oxygen therapy [Minimum Data Set]Initiate Oxygen Therapy Protocol Respiratory Care Routine As Needed until discontinued starting 10/19/2021[facility] Work Phone: comment on above:As Needed until discontinued starting 2SURESWAB(R) ADVANCED VAGINITIS PLUS, TMASURESWAB(R) ADVANCED VAGINITIS PLUS, TMA Pathology and Cytology Routine Yeast infection Ordered: 07/01/2024[facility] [employer] Work Phone: comment on above:Ordered: 07/01/2024 End: 27-68-7516Yizs and screen(includes indirect ady)Type and screen(includes indirect ady) Blood Bank Routine Bilateral ovarian cysts Preop testing 1 Occurrences starting 03/19/2024 until 03/19/2025[facility] HospitalComment on above:1 Occurrences starting 03/19/2024 until 03/19/2025[facility] Immunizations Immunization DateImmunizationNotesCare WacjeiwtEtwlojvj59-67-9383Wwirabosm, injectable, Madin Shivani Canine Kidney, preservative free, quadrivalentMundo Martinez MD Work Phone: [facility] HospitalDugusx76-30-4797ruagiuafr virus vaccine, unspecified formulationJeeverette Ivey APRN.CNP Work Phone: [facility] CampusWpqnou67-23-7635ifeaphira, seasonal, injectable, preservative Brandon Martinez MD Work Phone: [facility] HospitalNksirh09-87-0359mkxynqhjj virus vaccine, unspecified formulationCoabdoul Walton MS, [facility] Work Phone: [facility]08-01-2016tetanus toxoid, reduced diphtheria toxoid, and acellular pertussis vaccine, adsorbed Mundo Martinez MD Work Phone: [facility] HospitalMekazz56-67-4572hcailyvwe, seasonal, injectable, preservative Brandon Martinez MD Work Phone: [facility] HospitalGftlyn66-72-6879wlklxfioh, seasonal, injectable, preservative Brandon Martinez MD Work Phone: [facility]04-02-2013human papilloma virus vaccineAshley MD Work Phone: [facility]11-30-2012human papilloma virus Ashley smiley MD Work Phone: [facility]09-25-2012human papilloma virus vaccine, quadrivalentMundo Martinez MD Work Phone: [facility] HospitalPmcgdt17-61-2428orkyqhqlk, seasonal, injectable, preservative freeMundo Martinez MD Work Phone: [facility] HospitalMkhdfm78-54-7297pqbmwxteouhtd polysaccharide (groups A, C, Y and W-135) diphtheria toxoid conjugate vaccine (MCV4P)Mundo Martinez MD Work Phone: [facility] HospitalBtvaga01-72-0045rtdarxswu virus vaccineMundo Martinez MD Work Phone: [facility] HospitalHeemfp06-09-9383orvztldfz B vaccine, pediatric or pediatric/adolescent dosageMundo Martinez MD Work Phone: [facility] HospitalUvcbmp23-92-0570tjbbilmkq virus vaccineMundo Martinez MD Work Phone: [facility] HospitalRnbklu66-47-5880nxokpzkglp, tetanus toxoids and acellular pertussis vaccineMundo Martinez MD Work Phone: [facility] [facility]07-[facility]2002measles, mumps and rubella virus vaccineMundo Martinez MD Work Phone: [facility] HospitalLpksjn58-72-8554eamzuacdun vaccine, inactivatedMundo Martinez MD Work Phone: [facility] HospitalJdbslb21-00-5628mwlikwfjrp, tetanus toxoids and acellular pertussis vaccine, Haemophilus influenzae type b conjugate , and poliovirus vaccine, inactivated (DQjB-Trg-YHH)Mundo Martinez MD Work Phone: [facility]01-14-1998measles, mumps and rubella virus vaccineMundo Martinez MD Work Phone: [facility] HospitalGmmxvu62-95-9018nbfuwcphoj, tetanus toxoids and acellular pertussis vaccine, Haemophilus influenzae type b conjugate , and poliovirus vaccine, inactivated (GCmK-Oln-XHC)Mundo Martinez MD Work Phone: [facility] HospitalNfishv31-01-4819nlevagotew, tetanus toxoids and acellular pertussis vaccine, Haemophilus influenzae type b conjugate , and poliovirus vaccine, inactivated (FYkN-Znj-QYE)Mundo Martinez MD Work Phone: [facility] HospitalCsnuhw09-48-9505qslcbrjjq B vaccine, pediatric or pediatric/adolescent Esperanza Martinez MD Work Phone: [facility] HospitalFlepzm81-71-5116plknhobcrs, tetanus toxoids and acellular pertussis vaccine, Haemophilus influenzae type b conjugate , and poliovirus vaccine, inactivated (TAeD-Xij-VNZ)Mundo Martinez MD Work Phone: [facility] HospitalMcjhkp87-53-0140ghicpfwys B vaccine, pediatric or pediatric/adolescent Esperanza Martinez MD Work Phone: [facility] HospitalMjrrkf09-66-3962alwqdsdmi B vaccine, pediatric or pediatric/adolescent Esperanza Martinez MD Work Phone: [facility] Payers DatePayer CategoryPayerPolicy [id number] (Managed Care)[employer] Member Subscriber Plan / Payer (Effective 2022-Present) Name: Margaret Nicholson Relation to Subscriber: Self Name: Margaret Nicholson Payer ID: Not on file Group ID: Not on file Type: Not on file Address: [address] [id number]-kfl 2017[place] [id number] 2017- Present [id number] Medicaid [place] [id number] 2014Medicaid [id number] [id number] 2..1.639347.3.57[id number] 2..1.414549.3.57[id number] 2..1.043438.3.57[id number] 2..1.917592.3.57[id number] 2..1.194915.3.57[id number] 2.160.1.897929.3.57[id number] 2..1.497785.3.57[id number] 2.160.1.073087.3.579.2.82584-42-6807Veeyiua6270924 2.16.840.1.944364.3.579.2.18759-50-8588Irblrvv7725467 2.16.840.1.544377.3.579.2.49699-92-9241Dzjbthh7025858 2.16.840.1.508044.3.579.2.05530-45-9026Zogtigq4535167 2.16.840.1.448801.3.57[id number] 2.16.840.1.676164.3.579.[id number] 2.16.840.1.871803.3.579.2.64137-31-4547Twdektn7793046 2.16840.1.855749.3.579.[id number] 2.16840.1.763806.3.579.2.14044-63-1481Dcityhz2900137 2.16.840.1.597142.3.57[id number] 2.16.840.1.353935.3.579.2.09486-07-7900Iqrpgam7821731 2.16840.1.625784.3.579.2.46597-21-9411Zzfkcbt0139223 2.16.840.1.781513.3.579.2.77187-20-5990Cqpamiv8992694 2.16.840.1.049566.3.579.2.91602-03-7567Ycipwym6434760 2.16.840.1.807885.3.579.2.26125-75-1531Bimytqn0038021 2.16840.1.289619.3.579.2.03079-15-6912Hrynuuw5007337 2.16.840.1.449280.3.579.2.44389-30-8545Audztzh9582752 2.16840.1.893412.3.579.2.55497-01-9228Otdewtf73201190 2.16840.1.296615.3.579.2.849738-45-3110Ypwpirt5013816 2.840.1.215810.3.579.2.497355-62-4225Azfhkof5775202 2.0.1.319149.3.57[id number] 2.840.1.421266.3.579.2.395534-37-7397Xdzqwpo9486409 2.0.1.098880.3.57[id number] 2.0.1.257222.3.579.2.632899-08-2767Vfiqowh7452881 2.0.1.610296.3.579.2.361805-55-8098Ucrnbcy9230819 2.840.1.647205.3.579.2.672219-69-6658Mfcitlg6779450 2..1.737734.3.579.2.879696-67-7172Yurpxwa5679976 2.840.1.836753.3.579.2.441098-59-1022Rusbncw1492606 2.840.1.030273.3.579.2.595660-65-7401Imxfehj6800575 2.16840.1.010453.3.579.2.217483-78-4336Ktvotju7235114 2.840.1.346240.3.579.2.940247-20-7016Ovlxhni024677690529 1.2.840.454288.1.13.239.2.7.3.125141.341Iiaerak90813700 2.16.840.1.962265.3.579.2.531 Social History DateTypeDetailFacilityTobacco smoking status NHISUnknown if ever smokedMercy Health Allen Hospitaltart: 97-24-0079Tew Assigned At BirthNot on fileMercy Health Allen Hospitaltart: 12-24-2020 End: 16-92-4924Hmkpmof smoking status NHISNever smokerPremier Health Upper Valley Medical CenterSemmx Phone: start: 12-24-2020 End: 00-09-0566Ahnvorw use and exposureNever usedHenry County HospitalStart: 12-24-2020 End: 21-95-3341Jlbclks intakeEx-drinker (finding)[employer] Phone: start: 10-16-2021 End: 72-28-8343Yedshlti to SARS-CoV-2 (event)Not sureSt. Mary's Medical CentereGifter smoking status NHISTobacco smoking consumption unknownWayne Healthcare Main Campus [employer] Phone: Start: 03-03-2020 End: 46-62-1978Tmjmfxr of Social functionMercy Health Allen Hospitaltart: 03-03-2020 End: 09-21-6108Rguanbt Health Questionnaire 2 item (PHQ-2) [Reported][facility] Hospitaltart: 34-24-2253Wcrzi Depression Screening Nyalpyojoo5Exuyuqmvk Clinic Start: 11-15-2023 End: 80-04-3199Partchhha beverage intakeLifetime non-drinker (finding)[facility] HealthcareStart: 64-48-0675Qqlhgby CommentCaffeine intake: >4 cups per dayNOMS HealthcareDo you belong to any clubs or organizations such as quaker groups, unions, fraternal or athletic groups, or [...] the mortgage or rent on time?NoNOMS HealthcareStart: 18-87-9476HcgBmsjxw (finding)[facility] Centeredic Health SystemHow often to you have a drink containing alcohol?Monthly or lessProSt. Mary'S Medical Center, Ironton Campusca Health SystemHow many standard drinks containing alcohol do you have on a typical day?1 or 2PMarion Hospital SystemStart: 13-87-7240Hnvcgjk Commentsocial [facility] SystemNEGATED: Highlighted rowStart: NINFHistory of tobacco use Passive smokerNOMS Healthcare Goals DatePatient GoalDesired Activity/StatePersonal health goalComment on above: Evaluation of progress towards goal: Patient stated goal is to return home with HCC for assistance with wound care Functional Status ScdnXtgtickvkbWokeukTnutzwrd13-55-0468Fps you deaf, or do you have serious difficulty hearingNo 04/01/2022 6:20 PM Katie Florez RN NoCuniversity hospitals conneaut medical centerpeggy Cuwypd45-57-4840Huf you blind, or do you have serious difficulty seeing, even when wearing glassesNo 04/01/2022 6:20 PM Katie Florez RN NoCleveland Khgwdu41-87-3219Hv you have serious difficulty walking or climbing stairsNo 04/01/2022 6:20 PM Katie Florez RN NoCuniversity hospitals conneaut medical centerpeggy Zkvrlw52-49-1485Uz you have difficulty dressing or bathingNo 04/01/2022 6:20 PM Katie Florez RN NoCuniversity hospitals conneaut medical centerpeggy Acsvxi70-92-2996Warxvqx of a physical, mental, or emotional condition, do you have difficulty doing errands alone such as visiting a physician's office or shoppingNo 04/01/2022 6:20 PM Katie Florez RN No [facility] Mental Status QbyuYeuuogtlzhWqybzuKcibbggm89-10-2009Blxwmxf of a physical, mental, or emotional condition, do you have serious difficulty concentrating, remembering, or making decisionsNo 04/01/2022 6:20 PM Katie Florez, PRATIBHA [facility] Clinical Notes 12-24-2020 to 12-20-2024 Note Date & BmqtLtvlRqsjjfan33-83-8661 History of Present illness Narrative* Saba Fieldsaji, DIRECTOR TRUST-SUSTAINABILITY ENGINEER - 12/20/2024 10:00 AM EDT Subjective Patient [...] 03/25/2024 Prolonged emergence from general anesthesia Seizure ([facility]) Last one 03-11-2024 Past Surgical History Past Surgical History: Procedure Laterality Date APPENDECTOMY SECTION CHOLECYSTECTOMY [facility] DV5 LYSIS OF ADHESIONS N/A 03/28/2024 Performed by Mundo Martinez MD at [facility] DV5 LYSIS OF ADHESIONS N/A 03/28/2024 Performed by Jesse Sultana MD at [facility] DV5 SALPINGO OOPHORECTOMY/FROZEN SECTION Bilateral 03/28/2024 Performed by Mundo [facility] at [facility] DILATION AND CURETTAGE OF UTERUS PARTIAL [...] Physical Activity: Insufficiently Active (01/23/2024) Received from [facility] Exercise Vital Sign On average, how many days per week do you engage in moderate to strenuous exercise (like a brisk walk)?: 7 days On average, how many minutes do you engage in exercise at this level?: 10 min Stress: Stress Concern Present (01/23/2024) Received from [facility] Occupational [facility] - Occupational Stress Questionnaire Feeling of Stress : Rather much Social Connections: Socially Integrated (01/23/2024) Received from [facility] Social Connection and Isolation Panel In a typical week, how many times do you talk on the phone with family, friends, or neighbors?: More than three times a week How often do you get together with friends or relatives?: Twice a week How often do you attend quaker or religion services?: More than 4 times per year Do you belong to any clubs or organizations such as quaker groups, unions, fraternal or athletic groups, or [...] TWO PUFFS BY MOUTH EVERY 4 HOURS HOULXE97 g 0 baclofen (LIORESAL) 10 mg tablet [...] NOSTRIL EVERY OTHER DAY 16 g 2 obbrlpgeafb-ysxowvtju-tdhyyfmu (TRELEGY ELLIPTA) 200-62.5-25 mcg blister with device [...] SARAHI Karimi 12/20/24 1320 documented in this encounterAccess Hospital DaytonImprove Digital Uiejzs35-65-9708 History of Present illness Narrative* Vincent Peña [...] Dupixent today Follow-up in [facility] OSMANI Hooper presents for follow-up of [...] has been getting regular fills from [facility]. She does also note that her youngest [...] process is seen. Dr. Vincent Peña DO. [facility] Physicians Pulmonary & Critical Care Office: [phone] documented in this encounterAccess Hospital DaytonImprove Digital Jiagls98-77-6804 NoteHNO ID: [id number] Author: CURTIS LEPE PA-C Service: ? Author Type: Physician Guide Type: Progress Notes Filed: 12/13/2024 10:49 Note [...] Lymph 1.00 - 4.00 k/uL 0.84 Abs Towns <0.87 k/uL 0.06 Abs Eosin <0.46 k/uL [...] ZOLMitriptan (ZOMIG) 5 mg nasal sprayUse 1 Thompson in the nose as needed at onset [...] and clear, coherent, and relevant. Short and fpc memory, cognition and general fund of knowledge are good. Attention span and concentration are excellent. Cranial Nerves: VII-face is symmetric witho (more content not included)... [facility]10-24-2025 NoteHNO ID: [id number] Author: CORETTA QUINTANILLA RN Service: ? Author Type: Registered Nurse Type: Progress Notes Filed: 12/13/2024 10:37 Note Text: 0832: Patient in for day 2 of IV infusions. Patient rated headache 8/10. Patient stated severe nausea and severe dizziness. Patient educated on medications to be administered. Patient verbalized understanding and agreed to proceed with infusions. 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 She would like PRN zofran for nausea and PRN benadryl for sedation. 1036: Pts infusions complete. Pt tolerated infusion well. Pt rated headache 4/10. Pt stated severe nausea and moderate dizziness. Pt preferred second line PRN phenergan for nausea over zofran. Phenergan administered. Pt discharged from treatment room via wheelchair to her in the lobby.[facility]10-23-2025 Miscellaneous Notes* Telephone Encounter - Vielka Hussein - 12/12/2024 10:57 AM EDT 12/10 Order received 12/12 Called PT LM to schedule sleep study. Comp Order and 12/10/24 M. [facility] Epic Notes documented in this encounterC[facility]10-23-2025 Telephone encounter Note* Telephone Encounter - Vielka Hussein - 12/12/2024 10:57 AM EDT 12/10 Order received 12/12 Called PT LM to schedule sleep study. Comp Order and 12/10/24 M. Epic Notes [facility] CenterChip Path Design Systems Sulyus45-70-4663 NoteHNO ID: [id number] Author: LENNIE PALACIOS, PRATIBHA Service: ? Author [...] given. Patient with moderate dizziness, transferred to [facility] for discharge in wheelchair.[facility]10-23-2025 NoteHNO ID: [id number] Author: BASIL CORNELIUS, Service: ? Author Type: Physician Type: Progress Notes Filed: 12/12/2024 09:58 Note Text: Headache and Facial Pain [facility] [address] [place] [address] Headache Center - Follow up Visit Accompanied [...] this. Current treatment: Preventative: Vyepti 300 mg d1wyywph Abortive: Zavzpret 10 mg IN prn Zomig IN prn Phenergan Last office visit 09/24/2024: Headache 1 Location: holcephalic Quality/Description: throbbing and pressure Associated Symptoms: Photophobia: yes Phonophobia: yes Nausea: yes Vomiting: yes Other symptoms: osmophobia and vertigo Worse with activity: yes Number of migraine headache days/month (more content not included)...[facility]10-22-2025 NoteHNO ID: [id number] Author: LENNIE PALACIOS RN Service: ? Author [...] sleepy and discharged in a wheelchair to ,(mail truck driver). Toradol given after Vyepti flush . Headache unchanged still /. Patient scheduled with Dr. Cornelius tomorrow morning.[facility]10-22-2025 NoteHNO ID: [id number] Author: STANLEY LAZO APRN.SUSTAINABILITY ENGINEER Service: ? Author Type: Nurse Practitioner Type: Progress Notes Filed: 12/11/2024 10:46 Note Text: Pt has severe migraines. She is requesting toradol IV while she has Vyepti infusions. She has not had any NSAIDs in the last 4 days, kidney function is normal. Will give 30 mg IV toradol today.[facility]10-21-2025 History of Present illness Narrative* Corine Gold MD - 12/10/2024 2:30 PM EDT Images from the original note were not included. [address] [place] [id number] Patient: April Nicholson Date of : [...] PAP titration; Future - Ambulatory referral to [facility] Sleep Medicine; Future JUAN DAVID screen positive Needs Sleep study Ordered today Follows psychiatry Is on hormone replacement after total hysterectomy Exercise counseling completed. Follow-up in 3 months CORINE GOLD MD Family Medicine Physician [facility] Medicine / [facility] 12/10/24 This note was completed with voice recognition software. The document was reviewed for errors however some may still be present. Please do not hesitate to contact/Epic msg the author to verify any questions/concerns. documented in this encounterCleveland Clinic [facility] Hospital10-07-2025 NoteHNO ID: [id number] Author: RAIZA SHIELDS APRN.CNP Service: ? Author Type: Nurse Practitioner Type: Progress Notes Filed: 11/26/2024 13:56 Note Text: Patient was incorrectly scheduled; Was told to establish care with MD, I will have scheduling team reach out and assist patient in getting set up with Physician. Appointment cancelled, no charge. Raiza Shields APRN.CNPSt. Mary'S Medical [facility]09-04-2025 History of Present illness Narrative* SARAHI Champion [...] (three) times a dayfor 7 days. - pmzwcrcs-yvuqpmdiq-IM (CORTISPORIN) otic solution; Administer 3 drops into [...] SARAHI Champion 10/24/24 1530 documented in this encounterCleveland Clinic Fairview Hospital08-05-2025 NoteHNO ID: [id number] Author: CURTIS LEPE PA-C Service: ? Author Type: Physician Guide Type: Progress Notes Filed: 12/12/2024 22:32 Note [...] visit. Either the patient or their legal pharmaceutical sales representative has been informed of the [...] beyond the current two-m (more content not included)...[facility]07-15-2025 History of Present illness Narrative* Yumiko Worrell [...] or maintaining sleep 01/24/2023 Mild persistent asthma ([facility]) 01/24/2023 Polycystic ovaries 01/24/2023 Psychogenic nonepileptic seizure 01/24/2023 Class 3 severe obesity due to excess calories without serious comorbidity with body mass index (BMI) of 50.0 to 59.9 in adult ([facility] 03/21/2023 Mild persistent asthma with (acute) exacerbation ([facility]) 10/10/2023 Fatigue 01/01/2024 Encounter for long-term [...] Acute exacerbation of asthma with allergic rhinitis ([facility]) Allergies Asthma ([facility]) At low risk for fall Bipolar affective, mixed ([facility]) Change in blood pressure Cholecystitis 2008 Depressive disorder OMID (generalized anxiety disorder) History of hysterectomy 10/01/2021 Insomnia, persistent Migraines Mild persistent asthma without complication ([facility]) Morbid obesity with BMI of 40.0-44.9, adult [facility] PCOS (polycystic ovarian syndrome) Right otitis [...] persistent Migraines Mild persistent asthma without complication ([facility]) Morbid obesity with BMI of 40.0-44.9, adult ([facility]) PCOS (polycystic ovarian syndrome) Psychogenic nonepileptic seizure Right otitis media Seizures ([facility]) stressed induced Social History Tobacco Use [...] nursing note reviewed. Exam conducted with a dredge captain present. Vitals: Estimated body mass index is [...] of: Zay Blas DO documented in this encounterKindred HospitalRulhffwdnb29-04-7860 Miscellaneous Notes* [facility] - [facility] 9:19 AM EDT With Provider: VINCENT PEÑA [[facility]] Preferred Date Range: 08/27/2024 - 09/07/2024 Preferred Times: Any Reason for Visit: Same Day Comments: Asthma and allergy flareup documented in this encounterCleveland Clinic Fairview Hospital07-07-2025 Telephone encounter Note* Telephone Encounter - [facility] - 08/26/2024 9:19 AM EDT With Provider: VINCENT PEÑA [[facility]] Preferred Date Range: 08/27/2024 - 09/07/2024 Preferred Times: Any Reason for Visit: Same Day Comments: Asthma and allergy flareup [facility] Receept Ixioyp52-12-9079 Telephone encounter Note* Telephone Encounter - Mendoza Dooley - 08/19/2024 3:31 PM EDT Called patient since she no-showed for infusions today. Patient is going to cancel her infusions because she is headache free at the moment. She does want to know what to do if her headaches come back. Forwarding message to provider [facility]06-30-2025 Miscellaneous Notes* Telephone Encounter - Mendoza Dooley - 08/19/2024 3:31 PM EDT Called patient since she no-showed for infusions today. Patient is going to cancel her infusions because she is headache free at the moment. She does want to know what to do if her headaches come back. Forwarding message to provider documented in this encounterWayne Healthcare Main Campus06-27-2025 Telephone encounter Note * Telephone Encounter - Mendoza Dooley - 08/16/2024 11:44 AM EDT Patient last infusion was on 08/02 and only had one day. Routing to provider to see if she can come in [facility]06-27-2025 Miscellaneous Notes* Telephone Encounter - Mendoza Dooley [...] to patient or clarification documented in this encounterWayne Healthcare Main Campus06-27-2025 Telephone encounter Note * Telephone Encounter - Eloina Gibbs LPN - 08/16/2024 10:54 AM EDT Forwarded to infusion team, provider and Mendoza [facility]06-27-2025 Telephone encounter Note* Telephone Encounter - Eloina Gibbs LPN - 08/16/2024 10:38 AM EDT MYC message sent to patient or clarification [facility]06-17-2025 Telephone encounter Note* Telephone Encounter - Rhiannon Bobo - 08/06/2024 9:58 AM EDT Ambulatory Pharmacy Prior Authorization Note Provider Intervention Required?: No - Pharmacy completed on your behalf. Was the PA documented within the ePA workqueue?: No Rx Plan: Medicaid [facility] ([facility]) Drug: Zavzpret 10MG/ACT solution Cover My Meds Chong: [id number] Determination: Approved Prior Authorization/Case #: [id number] Prior Authorization Expiration: 01/31/2025 Time to PA [...] questions relating to this submission, please contact [facility] at [phone] [facility]06-17-2025 Miscellaneous Notes* Telephone Encounter - Rhiannon Bobo - 08/06/2024 9:58 AM EDT Ambulatory Pharmacy Prior Authorization Note Provider Intervention Required?: No - Pharmacy completed on your behalf. Was the PA documented within the ePA workqueue?: No Rx Plan: Medicaid [facility] ([facility]) Drug: Zavzpret 10MG/ACT solution Cover My Meds Chong: [id number] Determination: Approved Prior Authorization/Case #: [id number] Prior Authorization Expiration: 01/31/2025 Time to PA [...] questions relating to this submission, please contact [facility] at [phone] documented in this encounterWayne Healthcare Main Campus06-16-2025 Instructions* Patient Instructions* Curtis Lepe PA-C - [...] more information and get the Copay Card: https://www.zavzpret.[employer]book [employer] [place]/ Administration: Nose to toes or head level (do not tilt head back). Single spray in one nostril as needed for migraine. Do not prime. One dose per 24 hours. Avoid use with severe hepatic impairment or creatinine clearance less than 30ml/min. No contraindication to take zavzpret with nurtec or another CGRP antagonist. Use copay card. 6 doses in container. documented in this encounterWayne Healthcare Main Campus06-13-2025 History of Present illness Narrative* Curtis Lepe [...] Lymph 1.00 - 4.00 k/uL 0.84 Abs Towns <0.87 k/uL 0.06 Abs Eosin <0.46 k/uL [...] ZOLMitriptan (ZOMIG) 5 mg nasal spray^Use 1 Thompson in the nose as needed at onset [...] and clear,coherent, and relevant. Short and termite treater memory, cognition and general fund of knowledge [...] with the treatment plan. Level of service: [facility] level 2 (10-19 min). Time spent 18 min on the day of service, which included preparing to see the patient, nbqo-yk-ylrg patient care, completing clinical documentation, obtaining and/or [...] XL, Qudexy) Anti-Depressant and Antipsychotic Amitriptyline (Elavil) Rosa Sanchez (Eskalith, Lithobid) Nortriptyline (Pamelor, Aventyl) Blood Pressure Propranolol (Inderal) MABs Fremanezumab (Ajovy) Galcanezumab (Emgality) Botulinum Toxin Onabotulinum Toxin A (Botox) Supplements Magnesium The following abortive medications have been tried but require high frequency use which can lead toMedication Overuse Headache: Analgesic Ketorolac (Toradol) Anti-Migraine Dihydroergotamine (DHE-45, Migranal) Naratriptan (Amerge) Sumatriptan (Imitrex, Sumavel) Zolmitriptan (Zomig) Recording using Touch[employer] software for draft documentation of the visit was discussed with the patient/authorized pharmaceutical sales representative; all questions welcomed and answered. Patient/authorized pharmaceutical sales representative agreed to proceed Curtis Lepe PA-C Headache Section [facility] August 02, 2024 documented in this encounterWayne Healthcare Main Campus06-13-2025 NoteHNO ID: [id number] Author: CURTIS LEPE PA-C Service: ? Author Type: Physician Guide Type: Progress Notes Filed: 08/05/2024 00:10 Note [...] Lymph 1.00 - 4.00 k/uL 0.84 Abs Towns <0.87 k/uL 0.06 Abs Eosin <0.46 k/uL [...] ZOLMitriptan (ZOMIG) 5 mg nasal sprayUse 1 Thompson in the nose as needed at onset [...] in rate, volume a (more content not included)...[facility] [facility] 08-02-2024 NoteHNO ID: [id number] Author: ALKA TRENT RN Service: ? Author Type: Registered Nurse Type: Progress Notes Filed: 08/02/2024 12:53 Note Text: Patient in for day 1 of IV infusions. Patient rated headache 10/10. Patient stated severe nausea and mild dizziness. Patient educated on medications to be administered and a mail truck driver to transport home was confirmed. Patient verbalized understanding and agreed to proceed with infusions. PRn zofran and benadryl given PRN phenergan given Pts infusions complete. Pt tolerated infusion well. Pt rated headache 6/10. Pt stated mild nausea and moderate dizziness. Pt discharged from treatment room. [facility]06-13-2025 History of Present illness Narrative* Alka Trent RN - 08/02/2024 10:13 AM EDT Patient in for day 1 of IV infusions. Patient rated headache 10/10. Patient stated severe nausea and mild dizziness. Patient educated on medications to be administered and a mail truck driver to transport home was confirmed. Patient verbalized understanding and agreed to proceed with infusions. PRn zofran and benadryl given PRN phenergan given Pts infusions complete. Pt tolerated infusion well. Pt rated headache 6/10. Pt stated mild nausea and moderate dizziness. Pt discharged from treatment room. documented in [facility] encounterWay[facility]-2025 NoteHNO ID: [id number] Author: CURTIS LEPE PA-C Service: ? Author Type: Physician Guide Type: Progress Notes Filed: 08/01/2024 13:20 Note Text: Okay to come in for 1 day of non DHE IV infusions tomorrow.[facility]06-12-2025 History of Present illness Narrative* Curtis Lepe [...] day 1 infusions. 1236 Patient discharged to mail truck driver headache pain unchanged. documented in this encounterWayne Healthcare [facility]06-12-2025 NoteHNO ID: [id number] Author: LENNIE PALACIOS RN Service: ? Author [...] day 1 infusions. 1236 Patient discharged to mail truck driver headache pain unchanged.[facility]06-04-2025 History of Present illness Narrative* Halima Johns, DIRECTOR TRUST-SUSTAINABILITY ENGINEER - 07/24/2024 3:00 PM EDT Images from the original note were not included. Subjective CC: Infected toe/infection both eyes Patient ID: April Nicholson is a 28 y.o. female. CINTHIA Newberry presents with complaints of infection of right great toe. Relates had an infected toenail of her right great toe. States had a pedicure a few days ago, and chassis inspector cleaned out the ingrowntoenail region, and obtained a lot of green pus. States she also has had to do this in the past. Sandra feels the redness has improved, but is still sore to walk on the foot. Also relates both her eyes are light sensitive, puffy and feel bruised. This has been going on since mid-May. [facility] she talked to provider about this, and she tried taking allergy medication, along with allergy eye drops, but obtained no relief from these symptoms. Sandra states she follows up every 3 months with [facility] for migraines. Often times the last month [...] Nose: Nose normal. No rhinorrhea. Mouth/Throat: Lips: [place]. Mouth: Mucous membranes are moist. Pharynx: Oropharynx [...] De León 07/24/24 1707 documented in this encounterC[facility]05-16-[facility] Telephone encounter Note* Telephone Encounter - Mendoza Dooley - 07/05/2024 3:08 PM EDT Images from the original note were not included. Left detailed voicemail message to schedule infusions [facility]05-16-2025 Miscellaneous Notes* Telephone Encounter - Mendoza Dooley - 07/05/2024 3:08 PM EDT Images from the original note were not included. Left detailed voicemail message to schedule infusions documented in this encounterWayne Healthcare [facility]05-16-2025 Telephone encounter Note * Telephone Encounter - Kaye Lopez - 07/05/2024 12:22 PM EDT I have been unable to reach this patient by phone. A letter is being sent to the last known home address. [facility] 07/05, 07/12 Letter sent- 07/[address] [facility] [id number] Miscellaneous Notes* This document contains information received [...] 8:59 AM EDT Approved or Denied?Approved Auth #[id number] Dates of span:06/25/2024 TO 09/24/2024 Method of contact:FAX * Telephone Encounter - Vita Velez - 07/02/2024 2:17 PM EDT Checked portal for PA Auth#[id number] still pending. * Telephone Encounter - Vita Velez - 06/25/2024 3:57 PM EDT Date initiated:06/25/2024 Insurance provider:Lyndsay Name of pharmaceutical sales representative:portal(Urgent) Reference#:[id number] * Telephone Encounter - Viktoria Walton MS, [facility] - 06/25/2024 2:43 PM EDT Please preauthorize this patient for: CPT code for testin ICD-10 code for testing: Encounter Diagnoses Code Name Primary? Z84.89 Family history of genetic disorder Yes Ordering provider: Temo Name of test: Parental SNP Microarray Testing lab: [facility] Specimen requirement: isolated DNA Expected turnaround time: 2-3 weeks Is a Test Requisition Form required for this test: No Type of primary insurance (private or state HMO): State HMO ([employer] [facility]) Secondary Medicaid too? (Y/N): No Did the patient apply for [facility]? (Y/N): No If Yes, is it approved (provide approval dates) or still waiting on approval?: no Is a new blood sample required?: No Special lab draw instructions (e.g. Must draw on Monday-Monday): n/a Order placement: Default release COMMENTS: [facility] Plan ID: [id number] * Telephone Encounter - Viktoria Walton MS, [...] Licensed, Certified Genetic Counselor documented in this [facility]05-16-2025 Telephone encounter Note* Telephone Encounter - iVta Velez - 07/05/2024 8:59 AM EDT Approved or Denied?Approved Auth #[id number] Dates of span:06/25/2024 TO 09/24/2024 Method of contact:FAX [facility]05-16-2025 History of Present illness Narrative* Neeraj Shane - 07/05/2024 8:39 AM EDT Received [facility] FAX Forward FAX to Supporting Admin documented in this [facility]05-15-2025 Instructions* Patient Instructions* Curtis Lepe PA-C - [...] care. Infusions are done here at [facility] in the [facility]. Our infusion treatment room is where [...] provider. It is best to have a mail truck driver, as some medications we use may cause drowsiness. If you do not have a mail truck driver, please let your nurse know and [...] and heavy scented lotions. documented in this encounterWayne Healthcare [facility]05-15-2025 History of Present illness Narrative* Curtis Lepe [...] visit. Either the patient or their legal pharmaceutical sales representative has been informed of the [...] XL, Qudexy) Anti-Depressant and Antipsychotic Amitriptyline (Elavil) Rosa Sanchez (Eskalith, Lithobid) Nortriptyline (Pamelor, Aventyl) Anti-Migraine Dihydroergotamine [...] ZOLMitriptan (ZOMIG) 5 mg nasal spray^Use 1 Thompson in the nose as needed at onset [...] Lymph 1.00 - 4.00 k/uL 0.84 Abs Towns <0.87 k/uL 0.06 Abs Eosin <0.46 k/uL [...] spontaneous and fluent without dysarthria. Short and fpc memory, cognition and general fund of knowledgeare [...] XL, Qudexy) Anti-Depressant and Antipsychotic Amitriptyline (Elavil) Rosa Sanchez (Eskalith, Lithobid) Nortriptyline (Pamelor, Aventyl) Blood Pressure [...] course of IV infusions, and call office ([phone]) with problems or concerns before appointment Level of Service: Virtual Visit 32 minutes Recording using ambient Coferon software for draft documentation of the visit was discussed with the patient/authorized pharmaceutical sales representative; all questions welcomed and answered. Patient/authorized pharmaceutical sales representative agreed to proceed This note was partially generated using Kohort voice recognition system, and there may be some incorrect words, spellings, and punctuation that were not noted in checking the note before saving. Curtis Lepe PA-C Headache Section [facility] July 04, 2024 documented in this encounterWayne Healthcare [facility] Campus05-15-2025 NoteHNO ID: [id number] Author: CURTIS LEPE PA-C Service: ? Author Type: Physician Guide Type: Progress Notes Filed: 07/04/2024 13:48 Note [...] visit. Either the patient or their legal pharmaceutical sales representative has been informed of the [...] their effectiveness. She identifies (more content not included)...[facility] 07-02-2024 Telephone encounter Note* Telephone Encounter - Vita Velez - 07/02/2024 2:17 PM EDT Checked portal for PA Auth#[id number] still pending. [facility] [id number] History of Present illness Narrative* Ammy Carrington, [...] in female 12/19/2022 Mixed bipolar I disorder ([facility]/HCC) 01/24/2023 Chronic migraine without aura without status migrainosus, not intractable ([facility]) 01/24/2023 Generalized anxiety disorder ([facility]) 01/24/2023 Persistent disorder of initiating or maintaining sleep 01/24/2023 Mild persistent asthma 01/24/2023 Polycystic ovaries 01/24/2023 Psychogenic nonepileptic seizure 01/24/2023 Class 3 severe obesity due to excess calories without serious comorbidity with body mass index (BMI) of 50.0 to 59.9 in adult 03/21/2023 Mild persistent asthma with (acute) exacerbation ([facility]) 10/10/2023 Fatigue 01/01/2024 Encounter for long-term [...] Acute exacerbation of asthma with allergic rhinitis ([facility]) Allergies Asthma At low risk for fall Bipolar affective, mixed (HCC) ([facility]) Change in blood pressure Cholecystitis 2008 Depressive disorder ([facility]) OMID (generalized anxiety disorder) ([facility]) History of hysterectomy 10/01/2021 Insomnia, persistent Migraines ([facility]) Mild persistent asthma without complication ([facility]) Morbid obesity with BMI of 40.0-44.9, adult ([facility]) PCOS (polycystic ovarian syndrome) Right otitis media Seizures ([facility]) HISTORY PAST MEDICAL HISTORY SOCIAL HISTORY Past Medical History: Diagnosis Date Acute exacerbation of asthma with allergic rhinitis ([facility]) Allergies Asthma At low risk for fall Bipolar affective, mixed (HCC) ([facility]) Change in blood pressure high and low Cholecystitis 2008 Chronic migraine without aura without status migrainosus, not intractable ([facility]) Depressive disorder ([facility]) OMID (generalized anxiety disorder) ([facility]) History of hysterectomy 10/01/2021 Insomnia, persistent Migraines ([facility]) Mild persistent asthma without complication ([facility]) Morbid obesity with BMI of 40.0-44.9, adult ([facility]) PCOS (polycystic ovarian syndrome) Psychogenic nonepileptic seizure Right otitis media Seizures ([facility]) stressed induced Social History Tobacco Use [...] of: Zay Blas DO documented in this encounterKindred [id number] Telephone encounter Note* Telephone Encounter - Vita Velez - 06/25/2024 3:57 PM EDT Date initiated:06/25/2024 Insurance provider:Lyndsay Name of pharmaceutical sales representative:portal(Urgent) Reference#:[id number] [facility] [id number] Telephone encounter Note* Telephone Encounter - Viktoria Walton MS, [facility] - 06/25/2024 2:43 PM EDT Please preauthorize this patient for: CPT code for testin ICD-10 code for testing: Encounter Diagnoses Code Name Primary? Z84.89 Family history of genetic disorder Yes Ordering provider: Temo Name of test: Parental SNP Microarray Testing lab: [facility] Specimen requirement: isolated DNA Expected turnaround time: 2-3 weeks Is a Test Requisition Form required for this test: No Type of primary insurance (private or state HMO): State HMO ([employer] Secondary Medicaid too? (Y/N): No Did the patient apply for [facility]? (Y/N): No If Yes, is it approved (provide approval dates) or still waiting on approval?: no Is a new blood sample required?: No Special lab draw instructions (e.g. Must draw on Monday-Monday): n/a Order placement: Default release COMMENTS: [facility] Plan ID: [id number] [facility] [id number] Telephone encounter Note* Telephone Encounter - Viktoria [...] Walton MS, [place] Licensed, Certified Genetic Counselor [facility] [id number] Miscellaneous Notes* Telephone Encounter - Nirmala Lopez - 06/07/2024 1:17 PM EDT Contract: 148 No need to call documented in this encounterC[facility]04-18-2025 Telephone encounter Note* Telephone Encounter - Nirmala Lopez - 06/07/2024 1:17 PM EDT Contract: 148 No need to call [facility]04-17-2025 History of Present illness Narrative* Corine Gold MD - 06/06/2024 4:30 PM EDT Images from the original note were not included. [address] [place] [phone] Patient: April Nicholson Date of : [...] Visit via Real-time Synchronous Audiovisual Provider Location: [facility] [address] [place] [phone] Patient Location: Patient's home Video Visit Consent [...] that there are some limitations compared to ghka-ec-xyfh evaluations. The patient consented to the presence of additional virtual and/or in-person participants. We elected to proceed. CORINE GOLD MD Family Medicine Physician [facility] 06/06/24 This note was completed with voice recognition software. The document was reviewed for errors however some may still be present. Please do not hesitate to contact/[facility] the author to verify any questions/concerns. documented in this encounterCopley Hospital3KeyIt [id number] Telephone encounter Note* Telephone Encounter - Amy [...] spray 12 each 5 Sig: Use 1 Thompson in the nose as needed at onset of migraine headache. If symptoms persist or return, may repeat dose in other nostril after 2 hours. Maximum of 2 sprays per 24 hours Last visit 05/03/2024 with Sherif HERNANDEZ Next scheduled Visit date not found [facility]04-14-2025 Miscellaneous Notes* Telephone Encounter - Amy Shrestha [...] spray 12 each 5 Sig: Use 1 Thompson in the nose as needed at onset of migraine headache. If symptoms persist or return, may repeat dose in other nostril after 2 hours. Maximum of 2 sprays per 24 hours Last visit 05/03/2024 with Sherif HERNANDEZ Next scheduled Visit date not found documented in this encounterWayne Healthcare [facility] Campus04-01-2025 History of Present illness Narrative* Rajinder Cotton DO - 05/21/2024 9:30 AM EDT Images from the original note were not included. [facility] [address] [place] [address] [place] [address] Patient: April Nicholson Date of : 1995 Encounter Date: 05/21/2024 Subjective: Chief Complaint Chief Complaint Patient presents with sinus infection History of Present Illness April Nicholson is a 28 y.o. female, established patient, that presents to the office for acute sinus congestion. History provided by patient. Sinus Problem This is a new problem. Episode onset: 4 days ago. Maximum temperature: [place] feverish. Associated symptoms include chills (With associated [...] and frontal sinus tenderness present. Mouth/Throat: Lips: [place]. No lesions. Mouth: Mucous membranes are moist. [...] 03/25/2024 Prolonged emergence from general anesthesia Seizure ([facility]) Last one 03-11-2024 Past Surgical History: Procedure Laterality Date APPENDECTOMY SECTION CHOLECYSTECTOMY [facility] LYSIS OF ADHESIONS N/A 03/28/2024 Performed by Mundo Martinez MD at [facility]5 LYSIS OF ADHESIONS N/A 03/28/2024 Performed by Jesse Sultana MD at [facility]5 SAL[place]O OOPHORECTOMY/FROZEN SECTION Bilateral 03/28/2024 Performed [...] Physical Activity: Insufficiently Active (01/23/2024) [facility] Exercise Vital Sign Days of Exercise per Week: 7 days Minutes of Exercise per Session: 10 min Stress: Stress Concern Present (01/23/2024) Received from [facility] [place] [facility] Occupational Health - Occupational Stress Questionnaire Feeling of Stress : Rather much Social Connections: Socially Integrated (01/23/2024) Received from [facility] Social Connection and Isolation Panel [NHANES] Frequency of Communication with Friends and Family: More than three times a week Frequency of Social Gatherings with Friends and Family: Twice a week Attends Scientologist Services: More than 4 times per year [...] mg total) by mouth in the morning. hyqzgfrmtcl-mfxobamzq-jwmclejj (TRELEGY ELLIPTA) 200-62.5-25 mcg blister with device [...] DO 05/21/24 10:30 AM documented in this encounterAccess Hospital DaytonClick Quote Save [facility] Surgical [id number] Instructions* Patient Instructions* Rajinder Cotton DO - [...] yeast infection from antibiotics documented in this encounterCleveland [facility]03-26-2025 History of Present illness Narrative* MARY Cintron - 05/15/2024 8:30 AM EDT Subjective: April Nicholson is a 28 y.o. female who is s/p a laparoscopic BSO, FANNY on 03/28/24. Pathology: benign She unfortunately was admitted to [facility] on 04/08/24 after experiencing high [...] 03/28/2024 Performed by Mundo Martinez MD at [facility] DILATION AND CURETTAGE OF UTERUS PARTIAL [...] Physical Activity: Insufficiently Active (01/23/2024) Received from [facility] Exercise Vital Sign Days of Exercise per Week: 7 days Minutes of Exercise per Session: 10 min Stress: Stress Concern Present (01/23/2024) Re[facility] from [facility] [place] of Occupational Health - Occupational Stress Questionnaire Feeling of Stress : Rather much Social Connections: Socially Integrated (01/23/2024) Received from [facility] Social Connection and Isolation Panel [NHANES] Frequency of Communication with Friends and Family: More than three times a week Frequency of Social Gatherings with Friends and Family: Twice a week Attends Scientologist Services: More than 4 times per year [...] anomaly not found LOC (loss of consciousness) ([facility]) Migraine with aura and without status [...] be continued by her PCP or primary group product manager. Estradiol 1 mg tablet once daily PO. *The patient has a documented plan of care to address pain. All questions were answered to the patient's satisfaction. She is agreeable to this plan of care. *This note was completed using a voice gimp buttonhole machine operator system. Every effort was made to ensure accuracy. However, inadvertent computerized gimp buttonhole machine operator errors may be present. .Total time spent was 15 minutes: Preparing to see the patient (e.g., review of tests) Performing a medically appropriate examination and/or evaluation Counseling and educating the patient/family/caregiver Ordering medications, tests, or procedures Documenting clinical information in the electronic or other health record Care coordination (not separately reported) Svetlana Ye PA-C, RD, IF MARY Cintron 05/15/24 0913 documented in this encounterCopley Hospital3KeyIt [id number] Telephone encounter Note* Telephone Encounter - Angely Cotton RN - 05/13/2024 9:19 AM EDT Ambulatory Pharmacy Prior Authorization Note Provider Intervention Required?: No - Pharmacy completed on your behalf. Was the PA documented within the [facility] workqueue?: No Rx Plan[facility] Drug: Ubrelvy 100MG tablets Cover My Meds Chong: [id number] Determination: Approved Prior Authorization/Case #: [id number] Prior Authorization Expiration: 05/07/24 Time to PA [...] to this submission, please contact [facility] at [phone] [facility] Work Phone: [phone] Miscellaneous Notes* Telephone Encounter - Angely Cotton RN - 05/13/2024 9:19 AM EDT Ambulatory Pharmacy Prior Authorization Note Provider Intervention Required?: No - Pharmacy completed on your behalf. Was the PA documented within the ePA workqueue?: No Rx Plan: Medicaid MCO ([place]) Drug: Ubrelvy 100MG tablets Cover My Meds Chong: [id number] Determination: Approved Prior Authorization/Case #: [id number] Prior Authorization Expiration: 05/07/24 Time to PA [...] this submission, please contact [facility] at [phone] * Telephone Encounter - Angely Cotton RN - 05/08/2024 3:20 PM EDT [facility] received prescription(s) for Ubrelvy 100MG tablets . Benefits investigation was conducted, indicating that a prior authorization is required. All pertinent clinical information was submitted to insurance. Epic- Referral # [id number] Angely Cotton RN [facility] P: , F: * Telephone Encounter - Angely Cotton RN - 05/07/2024 10:[address] Lepe , Pt's ubrelvy needs a PA . I am unable to complete a PA since your office note is unfinished. Pleaselet me know when you have completed it and I will put in the PA tio. Thanks! Angely Cotton RN [facility] P: , F: documented in this encounterWayne [facility]03-19-2025 Telephone encounter Note * Telephone Encounter - Angely Cotton RN - 05/08/2024 3:20 PM EDT [facility] received prescription(s) for Ubrelvy 100MG tablets . Benefits investigation was conducted, indicating that a prior authorization is required. All pertinent clinical information was submitted to insurance. Epic- Referral # [id number] Angely Cotton RN [facility] P: , F: [facility]03-18-2025 Telephone encounter Note* Telephone Encounter - Angely Cotton RN - 05/07/2024 10:[address] Lepe , Pt's ubrelvy needs a PA . I am unable to complete a PA since your office note is unfinished. Pleaselet me know when you have completed it and I will put in the PA tio. Thanks! Angely Cotton RN [facility] P: , F: [facility]03-14-2025 Instructions* Patient Instructions* Curtis Lepe PA-C - [...] and dry mouth. PATIENT ASSISTANCE PROGRAM (PAP): [email or web address] - Start taking Ubrelvy as prescribed [...] your clinician as needed. documented in this encounterWayne Healthcare [facility] Campus03-14-2025 History of Present illness Narrative* Curtis Lepe [...] visit. Either the patient or their legal pharmaceutical sales representative has been informed of the [...] XL, Qudexy) Anti-Depressant and Antipsychotic Amitriptyline (Elavil) Rosa Sanchez (Eskalith, Lithobid) Nortriptyline (Pamelor, Aventyl) Anti-Migraine Dihydroergotamine [...] ZOLMitriptan (ZOMIG) 5 mg nasal spray^Use 1 Thompson in the nose as needed at onset [...] Lymph 1.00 - 4.00 k/uL 0.84 Abs Towns <0.87 k/uL 0.06 Abs Eosin <0.46 k/uL [...] spontaneous and fluent without dysarthria. Short and fpc memory, cognition and general fund of knowledgeare [...] XL, Qudexy) Anti-Depressant and Antipsychotic Amitriptyline (Elavil) Rosa Sanchez (Eskalith, Lithobid) Nortriptyline (Pamelor, Aventyl) Blood Pressure [...] XL, Qudexy) Anti-Depressant and Antipsychotic Amitriptyline (Elavil) Rosa Sanchez (Eskalith, Lithobid) Nortriptyline (Pamelor, Aventyl) Blood Pressure [...] time Follow-up: 2 months and call office ([phone]) with problems or concerns before appointment Level of Service: Virtual Visit 35 minutes The patient consented to the use of TouchPal software for draft documentation of the visit consistent with [facility] s Notice of Privacy Practices. This note was partially generated using Kohort voice recognition system, and there may be some incorrect words, spellings, and punctuation that were not noted in checking the note before saving. Curtis Lepe PA-C Headache Section [facility] May 03, 2024 documented in this encounterWayne Healthcare [facility] Campus03-14-2025 NoteHNO ID: [id number] Author: CURTIS LEPE PA-C Service: ? Author Type: Physician Guide Type: Progress Notes Filed: 05/08/2024 00:02 Note [...] visit. Either the patient or their legal pharmaceutical sales representative has been informed of the [...] Migraine headache severity: 10/ (more content not included)...[facility]03-13-2025 NoteHNO ID: [id number] Author: CLAUDIA MAYNARD RN Service: ? Author [...] and agreeable to plan. 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03-13-2025 History of Present illness Narrative* Claudia Maynard [...] and agreeable to plan. 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 documented in this encounterWayne Healthcare Main Campus03-11-2025 Miscellaneous Notes* Telephone Encounter - Caterina Smith CMA - 04/30/2024 8:41 AM EDT Attempted to contact patient regarding refill sent in. No answer, left voicemail. documented in [facility] Telephone encounter Note* Telephone Encounter - Caterina Smith CMA - 04/30/2024 8:41 AM EDT Attempted to contact patient regarding refill sent in. No answer, left voicemail. [facility]03-10-[facility]25 History of Present illness Narrative* MARY Cintron - 04/29/2024 2:20 PM EDT Patient called asking for refill of oxycodone for post op pain. Upon reviewing her OARRS it would appear she had Tylenol III refilled last week at [facility] [place], [place]. Discussed this with patient who states [...] post op pain. She expressed understanding. [facility] after completing phone call with patient. Pharmacy staff confirmed prescription for Tylenol III was picked up on 3/3/25 with a receipt available to view. MARY Cintron 04/29/24 1440 documented in this encounterCleveland [facility]03-10-2025 History of Present illness Narrative* SARAHI Champion - 04/29/2024 9:18 AM EDT The OARRS/MAPPS database was reviewed today and found to be appropriate. No indication of medication diversion, or non compliance. SARAHI Champion 04/29/24 0918 documented in this encounterCleveland [facility]03-06-2025 History of Present illness Narrative* Corine Gold MD - 04/25/2024 1:00 PM EST Images from the original note were not included. 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 Has episodes of zoning out. No history of Sleep Study Support system is fragmented -parents -Lutheran -2 fathers of childrens - not interested in being involved. PAST MEDICAL HISTORY: Past Medical History: Diagnosis Date Anxiety Asthma BV (bacterial vaginosis) Depression Migraine 15 days out of the month-receives an infusion every 3 months MRSA (methicillin resistant Staphylococcus aureus) In a buttocks wound in 8th grade Ovarian cyst, bilateral 03/25/2024 Prolonged emergence from general anesthesia Seizure ([facility]) Last one 03-11-2024 PAST SURGICAL HISTORY: Past Surgical History: Procedure Laterality Date APPENDECTOMY SECTION CHOLECYSTECTOMY [facility] DV5 LYSIS OF ADHESIONS N/A 03/28/2024 Performed by Mundo Martinez MD at [facility] DV5 LYSIS OF ADHESIONS N/A 03/28/2024 Performed by Jesse Sultana MD at [facility] [place] OOPHORECTOMY/FROZEN SECTION Bilateral 03/28/2024 Performed by Mundo Martinez MD at [facility] DILATION AND CURETTAGE OF UTERUS PARTIAL [...] Physical Activity: Insufficiently Active (01/23/2024) Received from [facility] Exercise Vital Sign Days of Exercise per Week: 7 days Minutes of Exercise per Session: 10 min Stress: Stress Concern Present (01/23/2024) Received from [facility] Occup[facility] - Occupational Stress Questionnaire Feeling of Stress : Rather much Social Connections: Socially Integrated (01/23/2024) Received from [facility] Social Connection and Isolation Panel [NHANES] Frequency of Communication with Friends and Family: More than three times a week Frequency of Social Gatherings with Friends and Family: Twice a week Attends Scientologist Services: More than 4 times per year [...] TWO PUFFS BY MOUTH EVERY 4 HOURS [id number] g 1 cetirizine (ZyrTEC) 10 mg tablet Take 1 tablet (10 mg total) by mouth in the morning. 30 tablet 0 diazePAM (VALIUM) 10 mg tablet Take 0.5 tablets (5 mg total) by mouth in the morning and at bedtime. tbpxikqtscp-msciseysk-bxioided (TRELEGY ELLIPTA) 200-62.5-25 mcg blister with device [...] unremarkable. CORINE GOLD MD Family Medicine Physician [facility] / [facility] 04/25/24 This note was completed with voice recognition software. The document was reviewed for errors however some may still be present. Please do not hesitate to contact/Epic ms the author to verify any questions/concerns. documented in this encounterC[facility]03-05-2025 History of Present illness Narrative* Alice Wright RN - 04/24/2024 3:13 PM EST Images from the original note were not included. Rev pharmacy notified. Spoke with Leonie. MARY Cintron RN Up to twice daily, thanks! Previous Messages ----- Message ----- From: Alice Wright RN Sent: 04/24/2024 2:17 PM EST To: MARY Cintron [facility] pharmacy called for clarification on the lidocaine cream. How many times a day can she the cream? Please advise. Thank you, Rubi documented in this [facility]03-05-2025 History of Present illness Narrative* MARY Cintron - 04/24/2024 9:30 AM EST Subjective: April Nicholson is a 28 y.o. female who is s/p a laparoscopic BSO, FANNY on 03/28/24. Pathology: benign She unfortunately was admitted to [facility] on 04/08/24 after experiencing high fevers despite being on antibiotics. The patient stated that she completed a 7-day course of clindamycin post-operatively. Oneday prior to presentation to the ED, the patient had been evaluated at [facility] and was given 1 dose [...] Jesse Sultana MD at [facility] [place] OOPHORECTOMY/FROZEN SECTION Bilateral 03/28/2024 Performed by Mundo Martinez MD at [facility] DILATION AND CURETTAGE OF UTERUS PARTIAL [...] Physical Activity: Insufficiently Active (01/23/2024) Received from [facility] Exercise Vital Sign Days of Exercise per Week: 7 days Minutes of Exercise per Session: 10 min Stress: Stress Concern Present (01/23/2024) Received from [facility] [place] [facility] - Occupational Stress Questionnaire Feeling of Stress : Rather much Social Connections: Socially Integrated (01/23/2024) Received from [facility] Social Connection and Isolation Panel [NHANES] Frequency of Communication with Friends and Family: More than three times a week Frequency of Social Gatherings with Friends and Family: Twice a week Attends Scientologist Services: More than 4 times per year [...] anomaly not found LOC (loss of consciousness) ([facility]) Migraine with aura and without status migrainosus, not intractable Bilateral occipital neuralgia Asthma without status asthmaticus Anxiety Depressive disorder Seizure-like activity ([facility]) Simple partial seizure disorder ([facility]) Psychogenic nonepileptic seizure Acute cough S/P [...] *This note was completed using a voice gimp buttonhole machine operator system. Every effort was made to ensure accuracy. However, inadvertent computerized gimp buttonhole machine operator errors may be present. .Total time spent was 35 minutes: Preparing to see the patient (e.g., review of tests) Performing a medically appropriate examination and/or evaluation Counseling and educating the patient/family/caregiver Ordering medications, tests, or procedures Documenting clinical information in the electronic or other health record Care coordination (not separately reported) Svetlana Ye PA-C, RD, IF MARY Cintron 04/24/24 1228 documented in this encounterC[facility]03-03-2025 Telephone encounter Note* Telephone Encounter - Mendoza Dooley - 04/22/2024 4:23 PM EST Calls were returned to patient. Patient is scheduled for vyepti [facility]03-03-2025 Miscellaneous Notes* Telephone Encounter - Mendoza Dooley - 04/22/2024 4:23 PM EST Calls were returned to patient. Patient is scheduled for vyepti documented in this encounterWayne Healthcare [facility] Campus02-25-2025 History of Present illness Narrative* Yumiko Worrell [...] in female 12/19/2022 Mixed bipolar I disorder ([facility]) 01/24/2023 Chronic migraine without aura without status migrainosus, not intractable ([facility]) 01/24/2023 Generalized anxiety disorder ([facility]) 01/24/2023 Persistent disorder of initiating or maintaining sleep 01/24/2023 Mild persistent asthma ([facility]) 01/24/2023 Polycystic ovaries 01/24/2023 Psychogenic nonepileptic seizure ([facility]) 01/24/2023 Class 3 severe obesity due to excess calories without serious comorbidity with body mass index (BMI) of 50.0 to 59.9 in adult ([facility]) 03/21/2023 Mild persistent asthma with (acute) exacerbation ([facility]) 10/10/2023 Fatigue 01/01/2024 Encounter for long-term [...] Acute exacerbation of asthma with allergic rhinitis ([facility]) Allergies Asthma ([facility]) At low risk for fall Bipolar affective, mixed (HCC) ([facility]) Change in blood pressure Cholecystitis 2009 Depressive disorder ([facility]) OMID (generalized anxiety disorder) ([facility]) History of hysterectomy 10/01/2021 Insomnia, persistent Migraines ([facility]) Mild persistent asthma without complication ([facility]) Morbid obesity with BMI of 40.0-44.9, adult ([facility]) PCOS (polycystic ovarian syndrome) Right otitis media Seizures ([facility]) HISTORY PAST MEDICAL HISTORY SOCIAL HISTORY Past Medical History: Diagnosis Date Acute exacerbation of asthma with allergic rhinitis ([facility]) Allergies Asthma ([facility]) At low risk for fall Bipolar affective, mixed (HCC) ([facility]) Change in blood pressure high and low Cholecystitis 2008 Chronic migraine without aura without status migrainosus, not intractable ([facility]) Depressive disorder ([facility]) OMID (generalized anxiety disorder) ([facility]) History of hysterectomy 10/01/2021 Insomnia, persistent Migraines ([facility]) Mild persistent asthma without complication ([facility]) Morbid obesity with BMI of 40.0-44.9, adult ([facility]) PCOS (polycystic ovarian syndrome) Psychogenic nonepileptic seizure ([facility]) Right otitis media Seizures ([facility]) stressed induced Social History Tobacco Use [...] nursing note reviewed. Exam conducted with a dredge captain present. Vitals: Estimated body mass index is [...] of: Zay Blas DO documented in this encounterKindred [id number] History of Present illness Narrative* MARY Cintron - 04/15/2024 9:00 AM EST Subjective: April Nicholson is a 28 y.o. female who is s/p a laparoscopic BSO, FANNY on 03/28/24. Pathology: benign She unfortunately was admitted to [facility] on 04/08/24 after experiencing high fevers despite being on antibiotics. The patient stated that she completed a 7-day course of clindamycin post-operatively. Oneday prior to presentation to the ED, the patient had been evaluated at [facility] and was given 1 dose [...] History: Procedure Laterality Date APPENDECTOMY SECTION CHOLECYSTECTOMY [place] [address] LYSIS OF ADHESIONS N/A 03/28/2024 Performed by Mundo Martinez MD at [place] [address] LYSIS OF ADHESIONS N/A 03/28/2024 Performed by Jesse Sultana MD at [place] [address] [place] OOPHORECTOMY/FROZEN SECTION Bilateral 03/28/2024 Performed by Mundo Martinez MD at [facility] DILATION AND CURETTAGE OF UTERUS PARTIAL HYSTERECTOMY 10/01/2021 TUBAL LIGATION Past Medical History: Diagnosis Date Anxiety Asthma BV (bacterial vaginosis) Depression Migraine 15 days out of the month-receives an infusion every 3 months MRSA (methicillin resistant Staphylococcus aureus) In a buttocks wound in 8th grade Ovarian cyst, bilateral 03/25/2024 Prolonged emergence from general anesthesia Seizure ([facility]) Last one 03-11-2024 Family History Problem [...] Physical Activity: Insufficiently Active (01/23/2024) Received from [facility] Exercise Vital Sign Days of Exercise per Week: 7 days Minutes of Exercise per Session: 10 min Stress: Stress Concern Present (01/23/2024) Received from [facility] Occupational [facility] - Occupational Stress Questionnaire Feeling of Stress : Rather much Social Connections: Socially Integrated (01/23/2024) Received from [facility] Social Connection and Isolation Panel [NHANES] Frequency of Communication with Friends and Family: More than three times a week Frequency of Social Gatherings with Friends and Family: Twice a week Attends Scientologist Services: More than 4 times per year [...] anomaly not found LOC (loss of consciousness) ([facility] Migraine with aura and without status migrainosus, not intractable Bilateral occipital neuralgia Asthma without status asthmaticus Anxiety Depressive disorder Seizure-like activity ([facility]) Simple partial seizure disorder ([facility]) Psychogenic nonepileptic seizure Acute cough S/P bilateral [...] *This note was completed using a voice gimp buttonhole machine operator system. Every effort was made to ensure accuracy. However, inadvertent computerized gimp buttonhole machine operator errors may be present. .Total time spent was 35 minutes: Preparing to see the patient (e.g., review of tests) Performing a medically appropriate examination and/or evaluation Counseling and educating the patient/family/caregiver Ordering medications, tests, or procedures Documenting clinical information in the electronic or other health record Care coordination (not separately reported) Svetlana Ye PA-C, RD, IF MARY Cintron 04/16/24 1237 documented in this encounterAccess Hospital DaytonViedea02-19-2025 Progress note* Discharge Planning Note - Desiree Theodore RN - 04/10/2024 3:04 PM EST DISCHARGE PLANNING NOTE Patient's RN reported that patient would like a rolling walker at discharge, Referral placed on [facility] with script and face to face documentation attached with a requestof delivery to patient's room today for discharge. [facility] will follow for discharge transition - DESIREE THEODORE RN 04/10/24 3:05 PM [facility] [id number] Miscellaneous Notes* Discharge Planning Note - Desiree Theodore RN - 04/10/2024 3:04 PM EST DISCHARGE PLANNING NOTE Patient's RN reported that patient would like a rolling walker at discharge, Referral placed on [facility] with script and face to face documentation attached with a requestof delivery to patient's room today for discharge. [facility] will follow for discharge transition - DESIREE [...] rounds, barriers to discharge are: No barriers. [place] [facility] [facility]. Patient states that she is not comfortable doing her own wound care. Has family that assist 4-5 times per week with wound care. Discharge Plan: Plan is home with HCC if able to find company to agree to care. Will arrange outpatient wound care if unable to find accepting [facility]. [facility] will continue to follow for any discharge needs. - Nicky Buchanan RN 04/10/24 10:38 AM * Plan of Care - Effie Keene RN - 04/10/2024 8:07 AM EST Problem: Pain Goal: Patient goal is pain score less than 4, able to rest, and participant in treatment plan as appropriate Description: INTERVENTIONS: 1. Encourage patient or legal pharmaceutical sales representative to report early pain and [...] per policy 9. Teach patient or legal pharmaceutical sales representative interventions for comforting Outcome: Progressing [...] at the bedside 7. Instruct patient/ patient pharmaceutical sales representative about use of safety devices 8. Include patient/ patient pharmaceutical sales representative in decisions related to safety [...] hygiene technique. 7. Identify and instruct patient/patient pharmaceutical sales representative in use of appropriate isolation precautionsfor identified infection/symptoms. 8. Provide and discuss with patient/patient pharmaceutical sales representative on educational MDRO sheet. 9. Encourage and monitor nutritional status daily and consult wool fleece grader if indicated. 10. Implement neutropenic guidelines as needed. Outcome: Progressing Note: Evaluation of progress towards goal: Patient afebrile, vital signs stable at this time. Continuing to monitor. Problem: Knowledge Deficit Goal: Patient/patient pharmaceutical sales representative demonstrates understanding of disease process, [...] Score of =/> 25 or indicated by [facility] Assessment Goal: Patient should be free from fall Description: Interventions: 1. Holderness to environment 2. Hourly rounds addressing the [...] non-skid footwear 11. Teach patient and patient pharmaceutical sales representative to maintain environment for safety [...] (cane, walker) within reach 19. Request patient pharmaceutical sales representative bring adaptive equipment/mobility aids from home or obtain and provide as needed 20. Consult pharmacy regarding effects of med's affecting mobility, cognition, and alternatives 21. Obtain physician order for PT if risk factors associated with mobility are present 22. Obtain physician order for OT as appropriate 23. Utilize diversional activities 24. Educate patient and patient pharmaceutical sales representative how to maintain a safe environment during visitationtimes (notify nurse prior to leaving bedside) 25. Consider appropriateness of medical or non-medical assisting program director 26. Set up voiding schedule as appropriate (every 2 hours) Outcome: Progressing Note: Evaluation of progress towards goal: Patient remains free from falls at this time. Interventions in place to help prevent falls. Continuing to monitor. Problem: Low Risk Fall Score Description: Nath Fall Score of 0 - 24 or [facility] Goal: Patient should be free from fall Description: Interventions: 1. Holderness to environment 2. Hourly rounds addressing the [...] non-skid footwear 11. Teach patient and patient pharmaceutical sales representative to maintain environment for safety [...] Description: INTERVENTIONS: 1. Encourage patient or legal pharmaceutical sales representative to report early pain and [...] per policy 9. Teach patient or legal pharmaceutical sales representative interventions for comforting Outcome: Progressing [...] at the bedside 7. Instruct patient/ patient pharmaceutical sales representative about use of safety devices 8. Include patient/ patient pharmaceutical sales representative in decisions related to safety [...] hygiene technique. 7. Identify and instruct patient/patient pharmaceutical sales representative in use of appropriate isolation precautionsfor identified infection/symptoms. 8. Provide and discuss with patient/patient pharmaceutical sales representative on educational MDRO sheet. 9. Encourage and monitor nutritional status daily and consult wool fleece grader if indicated. 10. Implement neutropenic guidelines as needed. Outcome: Progressing Note: Evaluation of progress towards goal: Standard precautions and hand hygiene used to prevent infection Problem: Knowledge Deficit Goal: Patient/patient pharmaceutical sales representative demonstrates understanding of disease process, [...] Collaborate with ancillary departments 14. Include patient/patient pharmaceutical sales representative in decisions related to anxiety [...] Score of =/> 25 or indicated by [facility] Assessment Goal: Patient should be free from fall Description: Interventions: 1. Holderness to environment 2. Hourly rounds addressing the [...] non-skid footwear 11. Teach patient and patient pharmaceutical sales representative to maintain environment for safety [...] (cane, walker) within reach 19. Request patient pharmaceutical sales representative bring adaptive equipment/mobility aids from home or obtain and provide as needed 20. Consult pharmacy regarding effects of med's affecting mobility, cognition, and alternatives 21. Obtain physician order for PT if risk factors associated with mobility are present 22. Obtain physician order for OT as appropriate 23. Utilize diversional activities 24. Educate patient and patient pharmaceutical sales representative how to maintain a safe environment during visitationtimes (notify nurse prior to leaving bedside) 25. Consider appropriateness of medical or non-medical assisting program director 26. Set up voiding schedule as appropriate [...] providing care 6. Collaborate with pastoral/spiritual care, outreach and education social worker, mental health counselor as needed. 7. Instruct patient on diversional activities such as physical activity, distraction, and deep breathing exercises to assist with coping 8. Involve patient's pharmaceutical sales representative in care Outcome: Completed Note: Evaluation of progress towards goal: completed * Discharge Planning Note - Nicky Buchanan RN - 04/09/2024 2:58 PM EST DISCHARGE PLANNING NOTE Update: [facility] unable to accept. [facility]errals for [facility] per patient choice sent. Waiting on reply. - Nicky Buchanan RN 04/09/24 2:59 PM * Discharge Planning Note - Nicky Buchanan RN - 04/09/2024 10:45 AM EST DISCHARGE PLANNING NOTE Senior Sustainability Advisor met with patient, introduced self, and explained role. Patient educated on safe discharge plan. Pt admitted 04/08/2024 with Abdominal wall cellulitis [L03.311] [place] [A41.9] Postoperative surgical complication involving genitourinary system [...] 03/25/2024 Prolonged emergence from general anesthesia Seizure [place] Last one 03-11-2024 Prior to admission patient was living with family and self care. Medical equipment patient used prior to admission includes: None. Patient denies need for transportation/ food/ prescription medication assistance resources. Patient lives with minor children and boyfriend. Has support from mother. Referral sent to [facility] per patient choice- her daughter has used them before. PCP: CORINE GOLD MD Pharmacy:[facility] in [place] PCP and pharmacy confirmed with patient. CN offered to assist with follow up appointment arrangements; patient declines - states will self-schedule follow up appointments. CORINE GOLD MD added to Follow Up Providers for Summary of Care communication. Per patient self-report: Drug use: no Smoking: no ETOH Use: no Current discharge plan is: Home with [facility] for [facility] care Services Requested: Services [facility] Will [...] Description: INTERVENTIONS: 1. Encourage patient or legal pharmaceutical sales representative to report early pain and [...] per policy 9. Teach patient or legal pharmaceutical sales representative interventions for comforting Outcome: Progressing [...] at the bedside 7. Instruct patient/ patient pharmaceutical sales representative about use of safety devices 8. Include patient/ patient pharmaceutical sales representative in decisions related to safety [...] hygiene technique. 7. Identify and instruct patient/patient pharmaceutical sales representative in use of appropriate isolation precautionsfor identified infection/symptoms. 8. Provide and discuss with patient/patient pharmaceutical sales representative on educational MDRO sheet. 9. Encourage and monitor nutritional status daily and consult wool fleece grader if indicated. 10. Implement neutropenic guidelines as needed. Outcome: Progressing Note: Evaluation of progress towards goal: on iv atb. Cont to trend labs.fevers Problem: Knowledge Deficit Goal: Patient/patient pharmaceutical sales representative demonstrates understanding of disease process, [...] Collaborate with ancillary departments 14. Include patient/patient pharmaceutical sales representative in decisions related to anxiety [...] providing care 6. Collaborate with pastoral/spiritual care, outreach and education social worker, mental health counselor as needed. 7. Instruct patient on diversional activities such as physical activity, distraction, and deep breathing exercises to assist with coping 8. Involve patient's pharmaceutical sales representative in care Outcome: Progressing Note: Evaluation of progress towards goal: able to voice concerns. Problem: Moderate - High Risk Fall Score Description: Nath Fall Score of =/> 25 or indicated by [facility] Assessment Goal: Patient should be free from fall Description: Interventions: 1. Holderness to environment 2. Hourly rounds addressing the [...] non-skid footwear 11. Teach patient and patient pharmaceutical sales representative to maintain environment for safety [...] (cane, walker) within reach 19. Request patient pharmaceutical sales representative bring adaptive equipment/mobility aids from home or obtain and provide as needed 20. Consult pharmacy regarding effects of med's affecting mobility, cognition, and alternatives 21. Obtain physician order for PT if risk factors associated with mobility are present 22. Obtain physician order for OT as appropriate 23. Utilize diversional activities 24. Educate patient and patient pharmaceutical sales representative how to maintain a safe environment during visitationtimes (notify nurse prior to leaving bedside) 25. Consider appropriateness of medical or non-medical assisting program director 26. Set up voiding schedule as appropriate [...] Description: INTERVENTIONS: 1. Encourage patient or legal pharmaceutical sales representative to report early pain and [...] per policy 9. Teach patient or legal pharmaceutical sales representative interventions for comforting Note: Evaluation [...] at the bedside 7. Instruct patient/ patient pharmaceutical sales representative about use of safety devices 8. Include patient/ patient pharmaceutical sales representative in decisions related to safety [...] hygiene technique. 7. Identify and instruct patient/patient pharmaceutical sales representative in use of appropriate isolation precautionsfor identified infection/symptoms. 8. Provide and discuss with patient/patient pharmaceutical sales representative on educational MDRO sheet. 9. Encourage and monitor nutritional status daily and consult wool fleece grader if indicated. 10. Implement neutropenic guidelines as needed. Note: Evaluation of progress towards goal: Wound culture pending. Iv zosyn, vanco, and flagyl administered 04/08. Problem: Knowledge Deficit Goal: Patient/patient pharmaceutical sales representative demonstrates understanding of disease process, [...] Collaborate with ancillary departments 14. Include patient/patient pharmaceutical sales representative in decisions related to anxiety [...] providing care 6. Collaborate with pastoral/spiritual care, outreach and education social worker, mental health counselor as needed. 7. Instruct patient on diversional activities such as physical activity, distraction, and deep breathing exercises to assist with coping 8. Involve patient's pharmaceutical sales representative in care Note: Evaluation of progress towards goal: Emotional support provided by RN and pts SO. documented in this encounterC[facility] History of Present illness Narrative* George [...] DC later tonight Zain Pagan, MS3 [facility] Resident Attestation I have seen and evaluated the patient, and have also reviewed the documentation above. I have repeated and performed the chong portions of the physical exam and concur with the student's findings. I agree with the plan as noted above with any changes made as necessary. George Pisano MD Manager Unit Resident PGY-1 04/10/24 7:50 AM If questions [...] PO antibiotics, home soon * Nicholas Osuna, [facility] - 04/09/2024 9:57 AM EST Pharmacokinetic Consult [...] Date/Time Wound culture superficial includes gram stain [[id number]] Collected: 04/08/242024 Specimen: Wound Swab Updated: 04/08/24 233 Gram Stain Result >25 WHITE BLOOD CELLS/LPF 0 SQUAMOUS EPITHELIAL CELLS/LPF FEW GRAM POSITIVE COCCI Culture PENDING Urine culture [[id number]] Collected: 04/08/24 1616 Specimen: Urine Updated: 04/08/24 1723 Blood culture [[id number]] Collected: 04/08/24 1411 Specimen: Blood Updated: 04/09/24 0229 Culture NO GROWTH <24 HRS SARS/FLU A+B/RSV by NAAT/Molecular (M4RT Collection Tube) [[id number]] Collected: 04/08/24 1403 Specimen: Nasopharynx Updated: 04/08/24 1506 FLU A PCR Negative FLU B PCR Negative RSV by PCR Negative SARS CoV 2 BY PCR Not Detected Blood culture [[id number]] Collected: 04/08/24 1343 Specimen: Blood Updated: 04/09/24 [...] you for consulting. Nicholas Osuna, PharmD, BCPS [id number] * Jaziel Crump MD - 04/09/2024 7:25 [...] of care per primary. Sherri Miranda MS3 [facility] 04/09/24 7:25 AM Jaziel Crump MD PGY-3 Surgery Resident 04/09/24 7:25 AM Cosigned by Benjamin Francis MD at 04/09/2024 10:19 PM EST Associated attestation - Benjamin Francis MD - 04/09/2024 10:19 PM EST documented in this encounterC[facility]02-19-2025 Progress note* Discharge Planning Note - Trudi Patel - 04/10/2024 11:15 AM EST DISCHARGE PLANNING NOTE Referral sent to multiple facilities or agencies due to patient insurance type/difficult placement/patient is without preference. [facility] Receept [id number] Progress note* Discharge Planning Note - Nicky Buchanan RN - 04/10/2024 10:35 AM EST DISCHARGE PLANNING NOTE Per RN during discharge transition rounds, barriers to discharge are: No barriers. [place] [facility]. Patient states that she is not comfortable doing her own wound care. Has family that assist 4-5 times per week with wound care. Discharge Plan: Plan is home with HCC if able to find company to agree to care. Will arrange outpatient wound care if unable to find accepting [facility]. [facility] will continue to follow for any discharge needs. - Nicky Buchanan RN 04/10/24 10:38 AM [facility] [id number] Plan of care note* Plan of Care - Effie Keene RN - 04/10/2024 8:07 AM EST Problem: Pain Goal: Patient goal is pain score less than 4, able to rest, and participant in treatment plan as appropriate Description: INTERVENTIONS: 1. Encourage patient or legal pharmaceutical sales representative to report early pain and [...] per policy 9. Teach patient or legal pharmaceutical sales representative interventions for comforting Outcome: Progressing [...] at the bedside 7. Instruct patient/ patient pharmaceutical sales representative about use of safety devices 8. Include patient/ patient pharmaceutical sales representative in decisions related to safety [...] hygiene technique. 7. Identify and instruct patient/patient pharmaceutical sales representative in use of appropriate isolation precautionsfor identified infection/symptoms. 8. Provide and discuss with patient/patient pharmaceutical sales representative on educational MDRO sheet. 9. Encourage and monitor nutritional status daily and consult wool fleece grader if indicated. 10. Implement neutropenic guidelines as needed. Outcome: Progressing Note: Evaluation of progress towards goal: Patient afebrile, vital signs stable at this time. Continuing to monitor. Problem: Knowledge Deficit Goal: Patient/patient pharmaceutical sales representative demonstrates understanding of disease process, [...] be free from fall Description: Interventions: 1. Holderness to environment 2. Hourly rounds addressing the [...] non-skid footwear 11. Teach patient and patient pharmaceutical sales representative to maintain environment for safety [...] (cane, walker) within reach 19. Request patient pharmaceutical sales representative bring adaptive equipment/mobility aids from home or obtain and provide as needed 20. Consult pharmacy regarding effects of med's affecting mobility, cognition, and alternatives 21. Obtain physician order for PT if risk factors associated with mobility are present 22. Obtain physician order for OT as appropriate 23. Utilize diversional activities 24. Educate patient and patient pharmaceutical sales representative how to maintain a safe environment during visitationtimes (notify nurse prior to leaving bedside) 25. Consider appropriateness of medical or non-medical assisting program director 26. Set up voiding schedule as appropriate (every 2 hours) Outcome: Progressing Note: Evaluation of progress towards goal: Patient remains free from falls at this time. Interventions in place to help prevent falls. Continuing to monitor. Problem: Low Risk Fall Score Description: Nath Fall Score of 0 - 24 or indicated by [facility] Assessment Goal: Patient should be free from fall Description: Interventions: 1. Holderness to environment 2. Hourly rounds addressing the [...] non-skid footwear 11. Teach patient and patient pharmaceutical sales representative to maintain environment for safety and engage in all aspects of fall prevention program Outcome: Progressing Note: Evaluation of progress towards goal: Patient remains free from falls at this time. Interventions in place to help prevent falls. Continuing to monitor. [facility]02-[facility] Hospital course Narrative* George Pisano MD - 04/10/2024 7:53 AM EST Inpatient Discharge Summary BRIEF OVERVIEW Admitting Provider: Primary Care Physician at Discharge: Admission Date: 04/08/2024 Discharge Date: 04/10/24 Procedures: Bedside I&D for abdominal abscess HPI: April Nicholson is a 28 y.o. female who presented to [facility] ED on 04/08/2024 with hx of abdominal pain and fever. 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 The patient stated that she completed a 7-day course of clindamycin post-operatively. One day prior to presentation to the ED, the patient had been evaluated at [facility] and was given 1 dose [...] 200 mg given BID during inpatient stay Rosa Sanchez carbonate 600 mg PO given qd during [...] Zaki Gupta 04/10/24 3rd Year Medical Student, [facility] Resident Attestation I have seen and evaluated the patient, and have also reviewed the documentation above. I have repeated and performed the chong portions of the physical exam and concur with the student's findings. I agree with the plan as noted above with any changes made as necessary. George Pisano MD Manager Unit Resident PGY-1 04/10/24 9:39 AM Cosigned by Milad Hernandez MD at 04/10/2024 10:59 AM EST Associated attestation - Milad Hernandez MD - 04/10/2024 10:59 AM EST I was present with resident during the history and physical exam. I discussed the case with the resident and agree with the findings and plan as documented in the resident's note, unless otherwise specified. documented in this encounterC[facility]02-18-2025 Plan of care note * Plan of Care - Corby Bojorquez RN - 04/09/2024 7:31 PM EST Problem: Pain Goal: Patient goal is pain score less than 4, able to rest, and participant in treatment plan as appropriate Description: INTERVENTIONS: 1. Encourage patient or legal pharmaceutical sales representative to report early pain and [...] per policy 9. Teach patient or legal pharmaceutical sales representative interventions for comforting Outcome: Progressing [...] at the bedside 7. Instruct patient/ patient pharmaceutical sales representative about use of safety devices 8. Include patient/ patient pharmaceutical sales representative in decisions related to safety [...] hygiene technique. 7. Identify and instruct patient/patient pharmaceutical sales representative in use of appropriate isolation precautionsfor identified infection/symptoms. 8. Provide and discuss with patient/patient pharmaceutical sales representative on educational MDRO sheet. 9. Encourage and monitor nutritional status daily and consult wool fleece grader if indicated. 10. Implement neutropenic guidelines as needed. Outcome: Progressing Note: Evaluation of progress towards goal: Standard precautions and hand hygiene used to prevent infection Problem: Knowledge Deficit Goal: Patient/patient pharmaceutical sales representative demonstrates understanding of disease process, [...] Collaborate with ancillary departments 14. Include patient/patient pharmaceutical sales representative in decisions related to anxiety [...] be free from fall Description: Interventions: 1. Holderness to environment 2. Hourly rounds addressing the [...] non-skid footwear 11. Teach patient and patient pharmaceutical sales representative to maintain environment for safety [...] (cane, walker) within reach 19. Request patient pharmaceutical sales representative bring adaptive equipment/mobility aids from home or obtain and provide as needed 20. Consult pharmacy regarding effects of med's affecting mobility, cognition, and alternatives 21. Obtain physician order for PT if risk factors associated with mobility are present 22. Obtain physician order for OT as appropriate 23. Utilize diversional activities 24. Educate patient and patient pharmaceutical sales representative how to maintain a safe environment during visitationtimes (notify nurse prior to leaving bedside) 25. Consider appropriateness of medical or non-medical assisting program director 26. Set up voiding schedule as appropriate [...] providing care 6. Collaborate with pastoral/spiritual care, outreach and education social worker, mental health counselor as needed. 7. Instruct patient on diversional activities such as physical activity, distraction, and deep breathing exercises to assist with coping 8. Involve patient's pharmaceutical sales representative in care Outcome: Completed Note: Evaluation of progress towards goal: completed [facility]02-18-2025 Progress note* Discharge Planning Note - Nicky Buchanan RN - 04/09/2024 2:58 PM EST DISCHARGE PLANNING NOTE [facility] per patient choice sent. Waiting on reply. - Nicky Buchanan RN 04/09/24 2:59 PM [facility]02-18-2025 Progress note* Discharge Planning Note - Nicky Buchanan RN - 04/09/2024 10:45 AM EST DISCHARGE PLANNING NOTE Senior Sustainability Advisor met with patient, introduced self, and explained role. Patient educated on safe discharge plan. Pt admitted 04/08/2024 with Abdominal wall cellulitis [L03.311] Sepsis ([facility] [A41.9] Postoperative surgical complication involving genitourinary [...] 03/25/2024 Prolonged emergence from general anesthesia Seizure ([facility]) Last one 03-11-2024 Prior to admission patient was living with family and self care. Medical equipment patient used prior to admission includes: None. Patient denies need for transportation/ food/ prescription medication assistance resources. Patient lives with minor children and boyfriend. Has support from mother. Referral sent to [facility] per patient choice- her daughter has used them before. PCP: CORINE GOLD MD Pharmacy:[facility] in [place] PCP and pharmacy confirmed with patient. CN [...] Buchanan RN 04/09/24 10:46 AM [facility] [id number] Consult note* George Pisano MD - 04/09/2024 7:52 AM EST Gynecology Oncology Consultation Date of Admission: 04/08/2024 1:04 PM Chief Complaint : Chief Complaint Patient presents with Flu Symptoms Abdominal Pain History of Present Illness : April Nicholson is a 28 y.o. 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 She went [facility] ED yesterday and was given 1 [...] 03/25/2024 Prolonged emergence from general anesthesia Seizure ([facility] Last one 03-11-2024 Past Surgical History: Past Surgical History: Procedure Laterality Date APPENDECTOMY SECTION [facility]Y [facility] LYSIS OF ADHESIONS N/A 03/28/2024 [facility] LYSIS OF ADHESIONS N/A 03/28/2024 Performed by Jesse Sultana MD at [facility] SALPINGO OOPHORECTOMY/FROZEN SECTION Bilateral 03/28/2024 Performed by Mundo Martinez MD at [facility] DILATION AND CURETTAGE OF UTERUS PARTIAL [...] Physical Activity: Insufficiently Active (01/23/2024) Received from [facility] Exercise Vital Sign Days of Exercise per Week: 7 days Minutes of Exercise per Session: 10 min Stress: Stress Concern Present (01/23/2024) Received from [facility] [place] [place] [facility] [employer] [facility] - Occupational Stress Questionnaire Feeling of Stress : Rather much Social Connections: Socially Integrated (01/23/2024) Received from [facility] Social Connection and Isolation Panel [NHANES] Frequency of Communication with Friends and Family: More than three times a week Frequency of Social Gatherings with Friends and Family: Twice a week Attends Scientologist Services: More than 4 times per year [...] questions or concerns, please contact [facility] at [phone]. Resident Attestation I have seen and evaluated the patient, and have also reviewed the documentation above. I have repeated and performed the chong portions of the physical exam and concur with the student's findings. I agree with the plan as noted above with any changes made as necessary. George Pisano MD Manager Unit Resident PGY-1 04/09/24 7:52 AM Cosigned by [...] Will initiate transdermal estrogen for vasomotor symptoms. [facility]02-18-[facility] Plan of care note* Plan of Care - Fredi Lowe RN - 04/09/2024 7:52 AM EST Problem: Pain Goal: Patient goal is pain score less than 4, able to rest, and participant in treatment plan as appropriate Description: INTERVENTIONS: 1. Encourage patient or legal pharmaceutical sales representative to report early pain and [...] per policy 9. Teach patient or legal pharmaceutical sales representative interventions for comforting Outcome: Progressing [...] at the bedside 7. Instruct patient/ patient pharmaceutical sales representative about use of safety devices 8. Include patient/ patient pharmaceutical sales representative in decisions related to safety [...] hygiene technique. 7. Identify and instruct patient/patient pharmaceutical sales representative in use of appropriate isolation precautionsfor identified infection/symptoms. 8. Provide and discuss with patient/patient pharmaceutical sales representative on educational MDRO sheet. 9. Encourage and monitor nutritional status daily and consult wool fleece grader if indicated. 10. Implement neutropenic guidelines as needed. Outcome: Progressing Note: Evaluation of progress towards goal: on iv atb. Cont to trend labs.fevers Problem: Knowledge Deficit Goal: Patient/patient pharmaceutical sales representative demonstrates understanding of disease process, [...] Collaborate with ancillary departments 14. Include patient/patient pharmaceutical sales representative in decisions related to anxiety [...] providing care 6. Collaborate with pastoral/spiritual care, outreach and education social worker, mental health counselor as needed. 7. Instruct patient on diversional activities such as physical activity, distraction, and deep breathing exercises to assist with coping 8. Involve patient's pharmaceutical sales representative in care Outcome: Progressing Note: Evaluation of progress towards goal: able to voice concerns. Problem: Moderate - High Risk Fall Score Description: Nath Fall Score of =/> 25 or indicated by [facility] Assessment Goal: Patient should be free from fall Description: Interventions: 1. Holderness to environment 2. Hourly rounds addressing the [...] non-skid footwear 11. Teach patient and patient pharmaceutical sales representative to maintain environment for safety [...] (cane, walker) within reach 19. Request patient pharmaceutical sales representative bring adaptive equipment/mobility aids from home or obtain and provide as needed 20. Consult pharmacy regarding effects of med's affecting mobility, cognition, and alternatives 21. Obtain physician order for PT if risk factors associated with mobility are present 22. Obtain physician order for OT as appropriate 23. Utilize diversional activities 24. Educate patient and patient pharmaceutical sales representative how to maintain a safe environment during visitationtimes (notify nurse prior to leaving bedside) 25. Consider appropriateness of medical or non-medical assisting program director 26. Set up voiding schedule as appropriate (every 2 hours) Outcome: Progressing Note: Evaluation of progress towards goal: free from falls, cont to use nonskid footwear with ambulation. Pt instructed to call out when appropriate to aid with ambulation [place]02-18-2025 Consult note* George Pisano MD - 04/09/2024 7:52 AM EST Gynecology Oncology Consultation Date of Admission: 04/08/2024 1:04 PM Chief Complaint : Chief Complaint Patient presents with Flu Symptoms Abdominal Pain History of Present Illness : April Nicholson is a 28 y.o. 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 She went [facility] ED yesterday and was given 1 [...] 03/25/2024 Prolonged emergence from general anesthesia Seizure ([facility]) Last one 03-11-2024 Past Surgical History: Past Surgical History: Procedure Laterality Date APPENDECTOMY SECTION CHOLECYSTECTOMY [facility] LYSIS OF ADHESIONS N/A 03/28/2024 Performed by Mundo Martinez MD at [facility] LYSIS OF ADHESIONS N/A 03/28/2024 Performed by Jesse Sultana MD at [facility]5 SALPINGO OOPHORECTOMY/FROZEN SECTION Bilateral 03/28/2024 Performed by Mundo Martinez MD at [facility] DILATION AND CURETTAGE OF UTERUS PARTIAL [...] Physical Activity: Insufficiently Active (01/23/2024) Received from [facility] Exercise Vital Sign Days of Exercise per Week: 7 days Minutes of Exercise per Session: 10 min Stress: Stress Concern Present (01/23/2024) Received from [facility] - Occupational Stress Questionnaire Feeling of Stress : Rather much Social Connections: Socially Integrated (01/23/2024) Received from [facility] Social Connection and Isolation Panel [NHANES] Frequency of Communication with Friends and Family: More than three times a week Frequency of Social Gatherings with Friends and Family: Twice a week Attends Scientologist Services: More than 4 times per year [...] If questions or concerns, please contact via [facility] pager at [phone]. Resident Attestation I have seen and evaluated the patient, and have also reviewed the documentation above. I have repeated and performed the chong portions of the physical exam and concur with the student's findings. I agree with the plan as noted above with any changes made as necessary. George Pisano MD Manager Unit Resident PGY-1 04/09/24 7:52 AM Cosigned by [...] 03/25/2024 Prolonged emergence from general anesthesia Seizure ([facility]) Last one 03-11-2024 Past Surgical History: Procedure Laterality Date APPENDECTOMY SECTION CHOLECYSTECTOMY [facility] LYSIS OF ADHESIONS N/A 03/28/2024 Performed by Mundo Martinez MD at [facility] LYSIS OF ADHESIONS N/A 03/28/2024 Performed by Jesse Sultana MD at [facility]5 SALPINGO OOPHORECTOMY/FROZEN SECTION Bilateral 03/28/2024 Performed by Mundo Martinez MD at [facility] DILATION AND CURETTAGE OF UTERUS PARTIAL [...] to allergen)., Disp: 2 each, Rfl: 1 gsqfaaffqhc-rnoagisxz-ezhyhgbu (TRELEGY ELLIPTA) 200-62.5-25 mcg blister with device, [...] Resource Strain: Low Risk (01/23/2024) Received from [facility] Overall Financial Resource Strain (CARDIA) Difficulty of Paying Living Expenses: Not very hard Food Insecurity: No Food Insecurity (02/09/2024) Hunger Screening Food Insecurity - Worry: Never True Food Insecurity - Inability: Never True Transportation Needs: Unknown (01/23/2024) Received from [facility] - Transportation Lack of Transportation (Medical): Patient declined Lack of Transportation (Non-Medical): No Physical Activity: Insufficiently Active (01/23/2024) Received from [facility] Exercise Vital Sign Days of Exercise per Week: 7 days Minutes of Exercise per Session: 10 min Stress: Stress Concern Present (01/23/2024) Received from [facility] - Occupational Stress Questionnaire Feeling of Stress : Rather much Social Connections: Socially Integrated (01/23/2024) Received from [facility] Social Connection and Isolation Panel [NHANES] Frequency of Communication with Friends and Family: More than three times a week Frequency of Social Gatherings with Friends and Family: Twice a week Attends Scientologist Services: More than 4 times per year Active Member of Clubs or Organizations: Yes Attends Club or Organization Meetings: More than 4 times per year Marital Status: Living with partner Interpersonal Safety: Not on file Housing Instability: Low Risk (01/23/2024) Received from [facility] Housing Stability Vital Sign Unable to [...] General Surgery B 6a - 6p Pager: [phone] 6p - 6a Pager: [phone] Cosigned by Benjamin Francis MD at 04/09/2024 9:48 AM EST Associated attestation - Benjamin Francis MD - 04/09/2024 9:48 AM EST Attending attestation: I reviewed the resident's note and discussed the case with the resident. Additional findings/notes: Local wound care. Will sign-off. Benjamin Francis MD, [facility] General Surgery and Minimally Invasive Surgery [address] [place] [address], [address] [place] [address] Office: documented in [facility] encounterC[facility] Plan of care note * Plan of Care - Lo Peres RN - 04/09/2024 4:51 AM EST Problem: Pain Goal: Patient goal is pain score less than 4, able to rest, and participant in treatment plan as appropriate Description: INTERVENTIONS: 1. Encourage patient or legal pharmaceutical sales representative to report early pain and [...] per policy 9. Teach patient or legal pharmaceutical sales representative interventions for comforting Note: Evaluation [...] at the bedside 7. Instruct patient/ patient pharmaceutical sales representative about use of safety devices 8. Include patient/ patient pharmaceutical sales representative in decisions related to safety [...] hygiene technique. 7. Identify and instruct patient/patient pharmaceutical sales representative in use of appropriate isolation precautionsfor identified infection/symptoms. 8. Provide and discuss with patient/patient pharmaceutical sales representative on educational MDRO sheet. 9. Encourage and monitor nutritional status daily and consult wool fleece grader if indicated. 10. Implement neutropenic guidelines as needed. Note: Evaluation of progress towards goal: Wound culture pending. Iv zosyn, vanco, and flagyl administered 04/08. Problem: Knowledge Deficit Goal: Patient/patient pharmaceutical sales representative demonstrates understanding of disease process, [...] Collaborate with ancillary departments 14. Include patient/patient pharmaceutical sales representative in decisions related to anxiety [...] providing care 6. Collaborate with pastoral/spiritual care, outreach and education social worker, mental health counselor as needed. 7. Instruct patient on diversional activities such as physical activity, distraction, and deep breathing exercises to assist with coping 8. Involve patient's pharmaceutical sales representative in care Note: Evaluation of progress towards goal: Emotional support provided by RN and pts SO. [facility]02-17-[facility] Procedure note* Jaziel Crump MD - [...] I reviewed the resident's note. Additional Notes/Findings: [facility]02-17-2025 Procedure note* Jaziel Crump MD - [...] resident's note. Additional Notes/Findings: documented in this encounterC[facility]02-17-2025 Consult note* Kinsey Toussaint MD - [...] 03/25/2024 Prolonged emergence from general anesthesia Seizure ([facility]) Last one 03-11-2024 Past Surgical History: Procedure Laterality Date APPENDECTOMY SECTION CHO[facility]OMY [facility] LYSIS OF ADHESIONS N/A 03/28/2024 Performed by Mundo Martinez MD at [place] [id number] LYSIS OF ADHESIONS N/A 03/28/2024 Performed by Jesse Sultana MD at [facility]5 SALPINGO OOPHORECTOMY/FROZEN SECTION Bilateral 03/28/2024 Performed by Mundo Martinez MD at [facility] DILATION AND CURETTAGE OF UTERUS PARTIAL [...] to allergen)., Disp: 2 each, Rfl: 1 oqibsylbkfd-pnbsgrsdj-nrkciqja (TRELEGY ELLIPTA) 200-62.5-25 mcg blister with device, [...] Resource Strain: Low Risk (01/23/2024) Received from [facility] Overall Financial Resource Strain (CARDIA) Difficulty of Paying Living Expenses: Not very hard Food Insecurity: No Food Insecurity (02/09/2024) Hunger Screening Food Insecurity - Worry: Never True Food Insecurity - Inability: Never True Transportation Needs: Unknown (01/23/2024) Received from [facility] - Transportation Lack of Transportation (Medical): Patient declined Lack of Transportation (Non-Medical): No Physical Activity: Insufficiently Active (01/23/2024) Received from [facility] Exercise Vital Sign Days of Exercise per Week: 7 days Minutes of Exercise per Session: 10 min Stress: Stress Concern Present (01/23/2024) Received from [facility] - Occupational Stress Questionnaire Feeling of Stress : Rather much Social Connections: Socially Integrated (01/23/2024) Received from [facility] Social Connection and Isolation Panel [NHANES] Frequency of Communication with Friends and Family: More than three times a week Frequency of Social Gatherings with Friends and Family: Twice a week Attends Scientologist Services: More than 4 times per year Active Member of Clubs or Organizations: Yes Attends Club or Organization Meetings: More than 4 times per year Marital Status: Living with partner Interpersonal Safety: Not on file Housing Instability: Low Risk (01/23/2024) Received from [facility] Housing Stability Vital Sign Unable to [...] General Surgery B 6a - 6p Pager: [phone] 6p - 6a Pager: [phone] Cosigned by Benjamin Francis MD at 04/09/2024 9:48 AM EST Associated attestation - Benjamin Francis MD - 04/09/2024 9:48 AM EST Attending attestation: I reviewed the resident's note and discussed the case with the resident. Additional findings/notes: Local wound care. Will sign-off. Benjamin Francis MD, [facility] General Surgery and Minimally Invasive Surgery [address] [place] [address], [address] [place] [address] Office: [facility] Work Phone: [phone]) 896-282602-17-2025 Physician Emergency department Note* Yordy Melton, DO - 04/08/2024 1:32 PM EST Images from the original note were not included. [facility] - EMERGENCY DEPARTMENT Pt Name: April [...] states that she was recently evaluated at [facility] yesterday and was given Keflex [...] 03/25/2024 Prolonged emergence from general anesthesia Seizure ([facility]) Last one 03-11-2024 Past Surgical History: Past Surgical History: Procedure Laterality Date APPENDECTOMY SECTION CHO[facility]OMY [facility] LYSIS OF ADHESIONS N/A 03/28/2024 Performed by Mundo Martinez MD at [facility]5 LYSIS OF ADHESIONS N/A 03/28/2024 Performed by Jesse Sultana MD at [facility]5 [place]O OOPHORECTOMY/FROZEN SECTION Bilateral 03/28/2024 Performed by Mundo Martinez MD at [facility] DILATION AND CURETTAGE OF UTERUS PARTIAL [...] Physical Activity: Insufficiently Active (01/23/2024) Received from [facility] Exercise Vital Sign Days of Exercise per Week: 7 days Minutes of Exercise per Session: 10 min Stress: Stress Concern Present (01/23/2024) Received from [facility] - Occupational Stress Questionnaire Feeling of Stress : Rather much Social Connections: Socially Integrated (01/23/2024) Received from [facility] Social Connection and Isolation Panel [NHANES] Frequency of Communication with Friends and Family: More than three times a week Frequency of Social Gatherings with Friends and Family: Twice a week Attends Scientologist Services: More than 4 times per year [...] nursing note reviewed. Exam conducted with a dredge captain present. Constitutional: General: She is in acute [...] Given 04/08/24 1640) lidocaine-EPINEPHrine (XYLOCAINE W/EPI) 1 %-1:690278 injection 30 mL (20 mL intradermal Given [...] and physical exam, pt requires admission to [facility] for IV antibiotics, pain control, general surgery [...] [JR] 1322 Pain Score: 10 [JR] 1406 [facility] evaluating patient at bedside [JR] 1413 X-ray [...] [facility] [...] 4:29 PM Comment Diagnosis: Abdominal wall cellulitis [[id number]] Attending Provider: MILAD HERNANDEZ [[id number]] Estimated length of stay?: >2 midnights/In-patient only [...] Attestation: I, Dr. Melton personally performed a dibq-wn-kdbn diagnostic evaluation on this patient. I have [...] Resident 04/08/242000 Yordy Melton DO 04/09/24 0734 [facility] Work Phone: [phone] Emergency department Note* Yordy Melton DO - 04/08/2024 1:32 PM EST Images from the original note were not included. [facility] - EMERGENCY DEPARTMENT Pt Name: April [...] states that she was recently evaluated at [facility] yesterday and was given Keflex [...] 03/25/2024 Prolonged emergence from general anesthesia Seizure ([facility]) Last one 03-11-2024 Past Surgical History: Past Surgical History: Procedure Laterality Date APPENDECTOMY SECTION CHO[facility]CYSTECTOMY [facility] LYSIS OF ADHESIONS N/A 03/28/2024 Performed by Mundo Martinez MD at [facility] LYSIS OF ADHESIONS N/A 03/28/2024 Performed by Jesse Sultana MD at [facility]5 SALPINGO OOPHORECTOMY/FROZEN SECTION Bilateral 03/28/2024 Performed by Mundo Martinez MD at [facility] DILATION AND CURETTAGE OF UTERUS PARTIAL [...] Physical Activity: Insufficiently Active (01/23/2024) Received from [facility] Exercise Vital Sign Days of Exercise per Week: 7 days Minutes of Exercise per Session: 10 min Stress: Stress Concern Present (01/23/2024) Received from [facility] - Occupational Stress Questionnaire Feeling of Stress : Rather much Social Connections: Socially Integrated (01/23/2024) Received from [facility] Social Connection and Isolation Panel [NHANES] Frequency of Communication with Friends and Family: More than three times a week Frequency of Social Gatherings with Friends and Family: Twice a week Attends Scientologist Services: More than 4 times per year [...] nursing note reviewed. Exam conducted with a dredge captain present. Constitutional: General: She is in acute [...] intravenous Given 04/08/241639) lidocaine-EPINEPHrine (XYLOCAINE W/EPI) 1 %-1:087310 injection 30 mL (20 mL intradermal Given [...] and physical exam, pt requires admission to [facility] for IV antibiotics, pain control, general surgery [...] [JR] 1322 Pain Score: 10 [JR] 1406 [facility] evaluating patient at bedside [JR] 1413 X-ray [...] Pt [facility] [...] 4:29 PM Comment Diagnosis: Abdominal wall cellulitis [[id number]] Attending Provider: MILAD HERNANDEZ [[id number]] Estimated length of stay?: >2 midnights/In-patient only [...] Attestation: I, Dr. Melton personally performed a bdbd-yi-wjcc diagnostic evaluation on this patient. I have [...] requesting labs in back. documented in this encounterC[facility]02-17-2025 Emergency department Note* Tim Jeffery CNA - 04/08/2024 11:29 AM EST Pt tearful in triage, lots of recent blood draws, requesting labs in back. [facility]02-17-2025 Miscellaneous Notes* Telephone Encounter - Sofia Ku CMA - 04/08/2024 8:53 AM EST Patient called reporting persistent fever of 105 F that is not reducing with medication. She has been to the ED in [place] multiple times and has been sent home every time. She also reports pain andgreen drainage from her surgical incision. Spoke to Svetlana Ye PA-C; she recommends that patient visit [facility] ED and and wants to inform patient that our team and residents will be able to round on her there. Patient is agreeable to plan. documented in this encounterC[facility]02-17-2025 Telephone encounter Note* Telephone Encounter - Sofia Ku CMA - 04/08/2024 8:53 AM EST Patient called reporting persistent fever of 105 F that is not reducing with medication. She has been to the ED in [place] multiple times and has been sent home every time. She also reports pain andgreen drainage from her surgical incision. Spoke to Svetlana Ye PA-C; she recommends that patient visit [facility] ED and and wants to inform patient that our team and residents will be able to round on her there. Patient is agreeable to plan. [facility]02-11-[facility]25 History of Present illness Narrative* Yumiko [...] 01/24/2023 Polycystic ovaries 01/24/2023 Psychogenic nonepileptic seizure ([facility]) 01/24/2023 Class 3 severe obesity due to excess calories without serious comorbidity with body mass index (BMI) of 50.0 to 59.9 in adult ([facility]) 03/21/2023 Mild persistent asthma with (acute) exacerbation ([facility]) 10/10/2023 Fatigue 01/01/2024 Encounter for long-term [...] Acute exacerbation of asthma with allergic rhinitis ([facility]) Allergies Asthma ([facility]) At low risk for fall Bipolar affective, mixed (HCC) ([facility]) Change in blood pressure Cholecystitis 2008 Depressive disorder ([facility]) OMID (generalized anxiety disorder) ([facility]) History of hysterectomy 10/01/2021 Insomnia, persistent Migraines ([facility]) Mild persistent asthma without complication ([facility]) Morbid obesity with BMI of 40.0-44.9, adult ([facility]) PCOS (polycystic ovarian syndrome) Right otitis media Seizures ([facility]) HISTORY PAST MEDICAL HISTORY SOCIAL HISTORY Past Medical History: Diagnosis Date Acute exacerbation of asthma with allergic rhinitis ([facility]) Allergies Asthma ([facility]) At low risk for fall Bipolar affective, mixed (HCC) ([facility]) Change in blood pressure high and low Cholecystitis 2008 Chronic migraine without aura without status migrainosus, not intractable ([facility]) Depressive disorder ([facility]) OMID (generalized anxiety disorder) ([facility]) History of hysterectomy 10/01/2021 Insomnia, persistent Migraines ([facility]/HCC) Mild persistent asthma without complication ([facility]) Morbid obesity with BMI of 40.0-44.9, adult ([facility]) PCOS (polycystic ovarian syndrome) Psychogenic nonepileptic seizure ([facility]) Right otitis media Seizures ([facility]) stressed induced Social History Tobacco Use [...] nursing note reviewed. Exam conducted with a dredge captain present. Vitals: Estimated body mass index is [...] of: Zay Blas DO documented in this encounterKindred [id number] Miscellaneous Notes* Telephone Encounter - Jania Garrett CMA - 04/01/2024 11:12 AM EST Images from the original note were not included. Medication Received: Yesterday April Nicholson [facility] Clinical Staff Hello good afternoon [...] see how she was feeling today. Our SUSTAINABILITY ENGINEER wanted to make sure that she's not having any nausea, vomiting, fever or chills. The patient didn't answer, so I left her a message. documented in this encounterC[facility]02-10-2025 Telephone encounter Note* Telephone Encounter - Jania Garrett CMA - 04/01/2024 11:12 AM EST Images from the original note were not included. Medication Received: Yes[facility] Clinical [facility] Hello good afternoon I m still in a lot of pain from my surgery I ve been taking tynol and the pain pills that were given to me every four hours I was wondering if you can send it a refill of those to help [facility] Garrett CMA 04/01/24 11:15 a.m. I tried to call the patient to check in with her & see how she was feeling today. Our SUSTAINABILITY ENGINEER wanted to make sure that she's not having any nausea, vomiting, fever or chills. The patient didn't answer, so I left her a message. [facility]02-10-[facility] History of Present illness Narrative* MARY [...] MARY Cintron 04/01/24 1107 documented in this encounterCleveland Clinic [facility]02-10-2025 Miscellaneous Notes* Telephone Encounter - Samira [...] with her sick child. documented in this encounterC[facility] Clinic [facility]02-10-2025 Telephone encounter Note* Telephone Encounter - [...] pain meds also. Message to Svetlana HERNANDEZ. [facility]02-10-2025 Telephone encounter Note* Telephone Encounter - [...] now helping her with her sick child. [facility]02-03-2025 Instructions* Patient Instructions* Mari Saldaña RN - 03/25/2024 2:15 PM EST Your surgery/procedure is scheduled at [facility] on 03-28-2024 at 9am Arrival Time: 7am [facility] Address: [address] [place] [address] Park in Parking lot located on [facility]. Report to the Entrance B. Check in at the information desk the surgery. The waiting room located on the second floor. If you have any questions prior to surgery, please call Pre-Admission Clinic at [phone] between 7:30 am and 4:30 pm Monday through Monday. If you have questions the morning of surgery, please call the Pre-op Department at [phone]. Notify your SURGEON if you develop any [...] RIGHTS AND RESPONSIBILITIES As a patient at [facility], you have the right to: Receive medical care and be informed of who is taking care of you Be treated with dignity and respect Have a family member/pharmaceutical sales representative of choice and your physician notified of your admission Receive information and actively participate in decisions about your care and treatment Refuse care, treatment and services Decide who may provide your support and speak for you Access religion and spiritual services Participate in ethical issues [...] of hospital charges and payment methods Patient/patient pharmaceutical sales representative responsibilities are to: Provide information [...] surgery in clean clothes. documented in this encounterCleveland Clinic [facility]01-30-2025 Miscellaneous Notes* Telephone Encounter - Nicky Zapata - 03/21/2024 11:47 AM EST ----- Message from Dr. Mundo Martinez MD sent at 03/21/2024 11:39 AM EST ----- Should be ok ----- Message ----- From: Nicky Zapata Sent: 03/21/2024 9:43 AM EST To: Mundo Martinez MD Pt is [facility] and getting migraine infusion Vyepti infusion for migranies, during the infusion pt will get Toradol and benadryl, patient has surgery next week and she wants to make sure this infusion is ok to take and will not delay surgery, please advise. * Telephone Encounter - Nicky Zapata - 03/21/2024 11:47 AM EST Pt was notified of Dr. Martinez response documented in this encounterC[facility] Telephone encounter Note* Telephone Encounter - Nicky Zapata - 03/21/2024 11:47 AM EST ----- Message from Dr. Mundo Martinez MD sent at 03/21/2024 11:39 AM EST ----- Should be ok ----- Message ----- From: Nicky Zapata Sent: 03/21/2024 9:43 AM EST To: Mundo Martinez MD Pt is going up to the [facility] tomorrow and getting migraine infusion Vyepti infusion for migranies, during the infusion pt will get Toradol and benadryl, patient has surgery next week and she wants to make sure this infusion is ok to take and will not delay surgery, please advise. [facility]01[facility] Telephone encounter Note* Telephone Encounter - Nicky Zapata - 03/21/2024 11:47 AM EST Pt was notified of Dr. Martinez response [facility]01-30-2025 NoteHNO ID: [id number] Author: SAGAR BARTH APRN.SUSTAINABILITY ENGINEER Service: ? Author Type: Nurse Practitioner [...] visit. Either the patient or their legal pharmaceutical sales representative has been informed of the [...] XL, Qudexy) Anti-Depressant and Antipsychotic Amitriptyline (Elavil) Rosa Sanchez (Eskalith, Lithobid) Nortriptyline (Pamelor, Aventyl) Anti-Migraine Dihydroergotamine [...] ZOLMitriptan (ZOMIG) 5 mg nasal sprayUse 1 Thompson in the nose as needed at onset [...] capsule by mouth ann (more content not included)...[facility]01-30-2025 History of Present illness Narrative* Sagar Barth APRN.SUSTAINABILITY ENGINEER - 03/21/2024 8:48 AM EST Images from [...] visit. Either the patient or their legal pharmaceutical sales representative has been informed of the [...] XL, Qudexy) Anti-Depressant and Antipsychotic Amitriptyline (Elavil) Rosa Sanchez (Eskalith, Lithobid) Nortriptyline (Pamelor, Aventyl) Anti-Migraine Dihydroergotamine [...] ZOLMitriptan (ZOMIG) 5 mg nasal spray^Use 1 Thompson in the nose as needed at onset [...] these with the patient: yes Sagar Barth APRN.SUSTAINABILITY ENGINEER HEADACHE SCORES: 12/05/2023 01/17/2024 03/20/2024 Headache Questions [...] Lymph 1.00 - 4.00 k/uL 0.84 Abs Towns <0.87 k/uL 0.06 Abs Eosin <0.46 k/uL [...] spontaneous and fluent without dysarthria. Short and fpc memory, cognition and general fund of knowledgeare [...] XL, Qudexy) Anti-Depressant and Antipsychotic Amitriptyline (Elavil) Rosa Sanchez (Eskalith, Lithobid) Nortriptyline (Pamelor, Aventyl) Blood Pressure [...] 30 minutes Sagar Barth APRN.FADY Headache [facility] March 21, 2024 documented in this encounterWayne Healthcare [facility]01-29-2025 History of Present illness Narrative* Vincent Peña, [...] previously seen pulmonary with Dr. Jason at [facility]. She has been treated with [...] Asthma BV (bacterial vaginosis) Depression Migraine Seizure ([facility]) Past Surgical History: Procedure Laterality Date [...] (exposure to allergen). 06/07/22 Yes ELSIE Luke yzwcgzsyzfe-yoecbnmhy-yokqbvuo (TRELEGY ELLIPTA) 100-62.5-25 mcg blister with device [...] chest is warranted. Dr. Vincent Peña DO. [facility] Pulmonary [facility] Critical Care Office: [phone] documented in this encounterC[facility]01-27-2025 History of Present illness Narrative* Mundo [...] which is why she doesn't go to [place] or [place]. She has had diarrhea for the last [...] lot of steroids. 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 Last hospitalized a couple years ago. [...] Asthma BV (bacterial vaginosis) Depression Migraine Seizure ([facility]) Lamictal for non-epileptiform seizure and depression/anxiety [...] Hernandez DO on 02/10/2024 12:45 AM I, Snudar Solo MD have personally reviewed the image(s) and agree with and/or edited the report Finalized by Sundar Solo MD on 02/10/2024 12:59 AM Assessment: Patient is diagnosed with Patient Active Problem List Diagnosis Encounter for observation of suspected anomaly not found LOC (loss of consciousness) ([facility]) Migraine with aura and without status [...] procedures Referring and communicating with other health progressive care unit registered nurse (not separately reported) Documenting clinical information in the electronic or other health record Independently interpreting results (not separately reported) and communicating results to the patient/family/caregiver Care coordination (not separately reported) Rosa Sanchez and lamictal, trazodone as needed MUNDO MARTINEZ MD documented in this encounterC[facility]01-15-2025 History of Present illness Narrative* Yumiko [...] in female 12/19/2022 Mixed bipolar I disorder ([facility]) 01/24/2023 Chronic migraine without aura without status migrainosus, not intractable ([facility]) 01/24/2023 Generalized anxiety disorder ([facility]) 01/24/2023 Persistent disorder of initiating or maintaining sleep 01/24/2023 Mild persistent asthma ([facility]) 01/24/2023 Polycystic ovaries 01/24/2023 Psychogenic nonepileptic seizure ([facility]) 01/24/2023 Class 3 severe obesity due to excess calories without serious comorbidity with body mass index (BMI) of 50.0 to 59.9 in adult ([facility]) 03/21/2023 Mild persistent asthma with (acute) exacerbation ([facility]) 10/10/2023 Fatigue 01/01/2024 Encounter for long-term [...] Acute exacerbation of asthma with allergic rhinitis ([facility]) Allergies Asthma ([facility]) At low risk for fall Bipolar affective, mixed ([facility]) ([facility]) Change in blood pressure Cholecystitis 2009 Depressive disorder ([facility]) OMID (generalized anxiety disorder) ([facility]) History of hysterectomy 10/01/2021 Insomnia, persistent Migraines ([facility]) Mild persistent asthma without complication ([facility]) Morbid obesity with BMI of 40.0-44.9, adult ([facility]) PCOS (polycystic ovarian syndrome) Right otitis media Seizures ([facility]) HISTORY PAST MEDICAL HISTORY SOCIAL HISTORY Past Medical History: Diagnosis Date Acute exacerbation of asthma with allergic rhinitis ([facility]) Allergies Asthma ([facility]) At low risk for fall Bipolar affective, mixed (HCC) ([facility]) Change in blood pressure high and low Cholecystitis 2008 Chronic migraine without aura without status migrainosus, not intractable ([facility]) Depressive disorder ([facility]) OMID (generalized anxiety disorder) ([facility]) History of hysterectomy 10/01/2021 Insomnia, persistent Migraines ([facility]) Mild persistent asthma without complication ([facility]) Morbid obesity with BMI of 40.0-44.9, adult ([facility]) PCOS (polycystic ovarian syndrome) Psychogenic nonepileptic seizure ([facility]) Right otitis media Seizures ([facility]) stressed induced Social History Tobacco Use [...] nursing note reviewed. Exam conducted with a dredge captain present. Vitals: Estimated body mass index is [...] of: Zay Blas DO documented in this encounterKindred [id number] History of Present illness Narrative* Yumiko Worrell [...] in female 12/19/2022 Mixed bipolar I disorder ([facility]) 01/24/2023 Chronic migraine without aura without status migrainosus, not intractable [place] 01/24/2023 Generalized anxiety disorder ([facility]) 01/24/2023 Persistent disorder of initiating or maintaining sleep 01/24/2023 Mild persistent asthma ([facility]) 01/24/2023 Polycystic ovaries 01/24/2023 Psychogenic nonepileptic seizure ([facility]) 01/24/2023 Class 3 severe obesity due to excess calories without serious comorbidity with body mass index (BMI) of 50.0 to 59.9 in adult ([facility]) 03/21/2023 Mild persistent asthma with (acute) exacerbation ([facility]) 10/10/2023 Fatigue 01/01/2024 Encounter for long-term [...] Acute exacerbation of asthma with allergic rhinitis ([facility]) Allergies Asthma ([facility]) At low risk for fall Bipolar affective, mixed (HCC) ([facility]) Change in blood pressure Cholecystitis 2009 Depressive disorder [place] OMID (generalized anxiety disorder) ([facility] History of hysterectomy 10/01/2021 Insomnia, persistent Migraines (CMS/HCC) Mild persistent asthma without complication (CMS/HCC) Morbid obesity with BMI of 40.0-44.9, adult ([facility]) PCOS (polycystic ovarian syndrome) Right otitis media Seizures ([facility]) HISTORY PAST MEDICAL HISTORY SOCIAL HISTORY Past Medical History: Diagnosis Date Acute exacerbation of asthma with allergic rhinitis (CMS/HCC) Allergies Asthma (CMS/HCC) At low risk for fall Bipolar affective, mixed (HCC) ([facility]) Change in blood pressure high and low Cholecystitis 2008 Chronic migraine without aura without status migrainosus, not intractable ([facility]) Depressive disorder ([facility]) OMID (generalized anxiety disorder) ([facility]) History of hysterectomy 10/01/2021 Insomnia, persistent Migraines (CMS/HCC) Mild persistent asthma without complication ([facility]) Morbid obesity with BMI of 40.0-44.9, adult ([facility]) PCOS (polycystic ovarian syndrome) Psychogenic nonepileptic seizure ([facility]) Right otitis media Seizures ([facility]) stressed induced Social History Tobacco Use [...] nursing note reviewed. Exam conducted with a dredge captain present. Vitals: Estimated body mass index is [...] Blas DO documented in this encounterNOResearch Medical [id number] Telephone encounter Note* Telephone Encounter - Claudia Lemon - 02/26/2024 1:05 PM EST Pt advised [facility] [id number] Miscellaneous Notes* Telephone Encounter - Claudia Lemon - 02/26/2024 1:05 PM EST Pt advised * Telephone Encounter - Mesha Zelaya LPN - 02/26/2024 11:25 AM EST UNABLE TP ACCEPT PT * Telephone Encounter - Claudia Lemno - 02/26/2024 11:12 AM EST Patients elizabeth harmon is gma and they are both pts of DB. 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 And if not db she asked for dominic. Pt does know we are not accepting new patients but asked if I could send this back - was told no on Monday. documented in this encounterKindred [id number] Telephone encounter Note* Telephone Encounter - Mesha Zelaya LPN - 02/26/2024 11:25 AM EST UNABLE TP ACCEPT PT [facility] [id number] Telephone encounter Note* Telephone Encounter - Claudia Lemon - 02/26/2024 11:12 AM EST Patients elizabeth harmon is gma and they are both pts of DB. 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 And if not db she asked for dominic. Pt does know we are not accepting new patients but asked if I could send this back - was told no on Monday. [facility] [id number] Telephone encounter Note* Telephone Encounter - Jannette Castrejon, PRATIBHA - 02/22/2024 12:02 PM ESTSumderik: MARY Jordan Images from the original note were not included. Prior Authorization submitted via CoverMyMeds on 02/22/2024: Insurance: [place] Medicaid Medication: Zolmitriptan Chong Code: [email or web address] Awaiting Response [facility]01-02-2025 Miscellaneous Notes* Telephone Encounter - Jannette Castrejon RN - 02/22/2024 12:02 PM ESTSummary: MARY Zolmitriptan Images from the original note were not included. Prior Authorization submitted via CoverMyMeds on 02/22/2024: Insurance: [place] Medicaid Medication: Zolmitriptan Chong Code: [email or web address] Awaiting Response documented in this encounterWayne Healthcare [facility] Campus12-20-2024 History of Present illness Narrative* Lamont Blair MD - 02/09/2024 12:19 PM ESTAssociated Problem(s): Mild persistent asthma with (acute) exacerbation ([facility]) Recent flare but not able to [...] and wo IV contrast documented in this encounterKindred [id number] Note* Addendum Note - Sagar Barth APRN.CNP - 01/30/2024 2:59 PM ESTAddended by: SAGAR BARTH on: 01/30/2024 02:59 PM Modules accepted: Orders [facility]12-10-2024 Telephone encounter Note* Telephone Encounter - Sagar Barth APRN.CNP - 01/30/2024 2:59 PM EST The following approved medication requests have been transmitted electronically. Requested Prescriptions Signed Prescriptions Disp Refills ZOLMitriptan (ZOMIG) 5 mg nasal spray 12 Each 5 Sig: Use 1 Thompson in the nose as needed at onset of migraine headache. If symptoms persist or return, may repeat dose in other nostril after 2 hours. Maximum of 2 sprays per 24 hours Authorizing Provider: SAGAR BARTH APRN.CNP [facility]12-10-2024 Miscellaneous Notes* Addendum Note - Sagar Barth APRN.CNP - 01/30/2024 2:59 PM ESTAddended by: SAGAR BARTH on: 01/30/2024 02:59 PM Modules accepted: Orders * Telephone Encounter - Sagar Barth APRN.CNP - 01/30/2024 2:59 PM EST The following approved medication requests have been transmitted electronically. Requested Prescriptions Signed Prescriptions Disp Refills ZOLMitriptan (ZOMIG) 5 mg nasal spray 12 Each 5 Sig: Use 1 Thompson in the nose as needed at onset [...] Each 5 11/10/2023 -- Sig: Use 1 Thompson in the nose as needed at onset [...] to verify quantity on zolmitriptan. Callback number: [phone] documented in this encounterWayne Healthcare [facility] Campus12-10-2024 Telephone encounter Note * Telephone Encounter - Sagar Barth APRN.CNP - 01/30/2024 2:56 PM EST Dispense 12 pls. I rewrote the rx. Sagar Barth APRN.CNP [facility]12-09-2024 Telephone encounter Note* Telephone Encounter - Amy Shrestha MA - 01/29/2024 11:18 AM EST Per last Rx on 11/10/2023: Disp Refills Start End ZOLMitriptan (ZOMIG) 5 mg nasal spray 10 Each 5 11/10/2023 -- Sig: Use 1 Thompson in the nose as needed at onset of migraine headache. If symptoms persist or return, may repeat dose in other nostril after 2 hours. Maximum of 2 sprays per 24 hours I called the pharmacy and hey need to know if Provider would like to dispense #6 or #12 cartridges.They do not come in 10. Please advise. Thank you [facility]12-09-2024 Telephone encounter Note* Telephone Encounter - Kelsey Patel - 01/29/2024 10:51 AM EST Name of Caller: nicky Relationship to patient: pharmacy Last visit in this department: 09/19/2023 Reason for Call: Other : need to verify quantity on zolmitriptan. Callback number: [phone] [facility]12-03-2024 History of Present illness Narrative* Lamont Blair MD - 01/23/2024 1:55 PM ESTAssociated Problem(s): SOB (shortness of breath) on exertion Severe symptom and check CXR. Use albuterol PRN and start prednisone. * Lamont Blair MD - 01/23/2024 1:55 PM ESTAssociated Problem(s): Mild persistent asthma with (acute) exacerbation ([facility]) Continued symptoms and treat with prednisone [...] panel CBC and differential documented in this encounterKindred [id number] NoteHNO ID: [id number] Author: GETACHEW DOMINGO RN Service: ? Author Type: Registered Nurse Type: Progress Notes Filed: 01/22/2024 15:58 Note Text: Pt in for third day of infusion. Pt rated headache 9/10. Pt has severe nausea and moderate dizziness. Educated pt on medications to be administered. Pt agreed to proceed as ordered. Career Developer yes Patient reports she stopped vomiting but nausea is still pretty severe. She continues to retain fluids, hands and lower extremities appear puffy, non pitting edema. Mohamed Hamdan, SUSTAINABILITY ENGINEER aware, patient seen. Patient referred to pcp [...] room via wheelchair to her in the lobby.[facility]12-02-2024 History of Present illness Narrative* Getachew Domingo RN - 01/22/2024 2:18 PM EST Pt in for third day of infusion. Pt rated headache 9/10. Pt has severe nausea and moderate dizziness. Educated pt on medications to be administered. Pt agreed to proceed as ordered. Career Developer yes Patient reports she stopped vomiting but [...] her in the lobby. documented in this encounterWayne Healthcare Main Campus12-02-2024 NoteHNO ID: [id number] Author: RAIZA SHIELDS APRN.SUSTAINABILITY ENGINEER Service: ? Author Type: Nurse Practitioner [...] Lymph 1.00 - 4.00 k/uL 0.84 Abs Towns <0.87 k/uL 0.06 Abs Eosin <0.46 k/uL [...] ZOLMitriptan (ZOMIG) 5 mg nasal sprayUse 1 Thompson in the nose as needed at onset [...] and clear, coherent, and relevant. Short and fpc memory, cognition and general fund of knowledge [...] service, which included p (more content not included)...[facility]12-02-2024 History of Present illness Narrative* Raiza Shields APRN.SUSTAINABILITY ENGINEER - 01/22/2024 1:30 PM EST Images from [...] Lymph 1.00 - 4.00 k/uL 0.84 Abs Towns <0.87 k/uL 0.06 Abs Eosin <0.46 k/uL [...] ZOLMitriptan (ZOMIG) 5 mg nasal spray^Use 1 Thompson in the nose as needed at onset [...] and clear,coherent, and relevant. Short and termite treater memory, cognition and general fund of knowledge [...] which included preparing to see the patient, [id number] patient care, completing clinical documentation, and obtaining and/or reviewing separately obtained history. Raiza Shields APRN.FADY Headache Section [facility] January 22, 2024 documented in this encounterWayne Healthcare [facility] Campus11-29-2024 NoteHNO ID: [id number] Author: GETACHEW DOMINGO RN Service: ? Author Type: Registered Nurse Type: Progress Notes Filed: 01/19/2024 11:55 Note Text: Pt in for second day of infusion. Pt rated headache 10/10. Pt has severe nausea and severe dizziness. Educated pt on medications to be administered. Pt agreed to proceed as ordered. Career Developer: yes Patient took Valium 10 mg tabl [...] Pt d/c via wheelchair to her in [facility]. Instructed patient and to take caution with ambulating. Patient is feeling sedated.[facility]11-29-2024 History of Present illness Narrative* Getachew Domingo RN - 01/19/2024 9:37 AM EST Pt in for second day of infusion. Pt rated headache 10/10. Pt has severe nausea and severe dizziness. Educated pt on medications to be administered. Pt agreed to proceed as ordered. Career Developer: yes Patient took Valium 10 mg tabl [...] Pt d/c via wheelchair to her in [facility]. Instructed patient and to take caution with ambulating. Patient is feeling sedated. documented in this encounterWayne Healthcare [facility] Campus11-27-2024 NoteHNO ID: [id number] Author: CLAUDIA MAYNARD RN Service: ? Author [...] PRN Zofran given for nausea. 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11-27-2024 History of Present illness Narrative* Claudia Maynard, [...] PRN Zofran given for nausea. 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 documented in this encounterWayne Healthcare Main Campus11-27-2024 NoteHNO ID: [id number] Author: ОЛЬГА SHABAZZ APRN.SUSTAINABILITY ENGINEER Service: ? Author Type: Nurse Practitioner Type: Progress Notes Filed: 01/17/2024 07:59 Note Text: [facility] - Virtual Visit Infusion Triage This visit was conducted as a virtual visit, with patient's permission, via ZOOM. It required patient-provider interaction for the medical decision making as documented below. Patient stated name and Patient location [place], [place] I have communicated my name and active licensure. The patient's identity and physical location were verified at the time of this visit. Either the patient or their legal pharmaceutical sales representative has been informed of the [...] [place], New health events/diagnosis since last visit ([place]/stroke/DM/HTN/etc): [...] Lymph 1.00 - 4.00 k/uL 0.84 Abs Towns <0.87 k/uL 0.06 Abs Eosin <0.46 k/uL <0.03 Abs Baso <0.11 k/uL <0.03 NRBC /100 WBC 0.0 Analgesic Ketorolac (Toradol) Anti-Convulsant Lamotrigine (Lamictal) Topiramate (Topamax, Trokendi XL, Qudexy) Anti-Depressant and Antipsychotic Amitriptyline (Elavil) Rosa Sanchez (Eskalith, Lithobid) Nortriptyline (Pamelor, Aventyl) Anti-Migraine Dihydroergotamine [...] sprayUse 1 Sp (more content not included)... [facility]11-26-2024 Telephone encounter Note* Telephone Encounter - Michelle Givens RN - 01/16/2024 9:25 AM EST PAPO: 12/05/2023 with Ольга Shabazz APRN.SUSTAINABILITY ENGINEER [facility]11-26-2024 Miscellaneous Notes* Telephone Encounter - Michelle Givens RN - 01/16/2024 9:25 AM EST PAPO: 12/05/2023 with Ольга Shabazz APRN.SUSTAINABILITY ENGINEER documented in this encounterWayne Healthcare Main Campus11-19-2024 History of Present illness Narrative* Lamont Blair [...] and follow with specialists. Mild persistent asthma ([facility]) - Primary Class 3 severe obesity due to excess calories without serious comorbidity with body mass index (BMI) of 50.0 to 59.9 in adult ([facility]) Patient overweight and difficult time losing [...] (Ultram) 50 MG tablet documented in this encounterKindred [id number] NoteHNO ID: [id number] Author: LENNIE PALACIOS RN Service: ? Author [...] after Benadryl given. 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 [facility]11-15-2024 History of Present illness Narrative* Lennie Palacios, [...] after Benadryl given. 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 documented in this encounterWayne [facility]10-15-2024 History of Present illness Narrative* Ольга Shabazz APRN.SUSTAINABILITY ENGINEER - 12/05/2023 7:00 AM EDT Images from the original note were not included. Headache Center - Follow up Virtual Visit Last OV: 08/23/23 Sona Barth APRN Accompanied by: Self This visit was conducted as a virtual visit, with patient's permission, via ZOOM. It required patient-provider interaction for the medical decision making as documented below. Patient stated name and Patient location [place], [place] I have communicated my name and active licensure. The patient's identity and physical location wereverified at the time of this visit. Either the patient or their legal pharmaceutical sales representative has been informed of the [...] (ZOMIG) 5 mg nasal spray Use 1 Thompson in the nose as needed at onset [...] these with the patient: yes Ольга Shabazz APRN.SUSTAINABILITY ENGINEER Studies to Review: No New Health Issues: [...] XL, Qudexy) Anti-Depressant and Antipsychotic Amitriptyline (Elavil) Rosa Sanchez (Eskalith, Lithobid) Nortriptyline (Pamelor, Aventyl) Blood Pressure [...] which included preparing to see the patient, gnto-jv-wzya patient care, completing clinical documentation, and counseling and educating the patient/family/caregiver. Ольга Shabazz APRN.SUSTAINABILITY ENGINEER documented in this encounterWayne [facility]09-25-2024 History of Present illness Narrative* Lamont Blair [...] 800-160 MG per tablet documented in this encounterKindred [id number] Telephone encounter Note* Telephone Encounter - Sagar Barth APRN.CNP - 11/10/2023 2:12 PM EDT The following approved medication requests have been transmitted electronically. Requested Prescriptions Signed Prescriptions Disp Refills ZOLMitriptan (ZOMIG) 5 mg nasal spray 10 Each 5 Sig: Use 1 Thompson in the nose as needed at onset [...] spasm (migraine). Authorizing Provider: SAGAR BARTH APRN.CNP [facility]09-20-2024 Miscellaneous Notes* Telephone Encounter - Sagar Barth APRN.CNP - 11/10/2023 2:12 PM EDT The following approved medication requests have been transmitted electronically. Requested Prescriptions Signed Prescriptions Disp Refills ZOLMitriptan (ZOMIG) 5 mg nasal spray 10 Each 5 Sig: Use 1 Thompson in the nose as needed at onset [...] spray 10 Each 5 Sig: Use 1 Thompson in the nose as needed at onset [...] for muscle spasm (migraine). documented in this encounterWayne Healthcare Main Campus09-20-2024 Telephone encounter Note * Telephone Encounter - Sagar Barth APRN.CNP - 11/10/2023 2:11 PM EDT The following approved medication requests have been transmitted electronically. Requested Prescriptions Signed Prescriptions Disp Refills promethazine (PHENERGAN) 25 mg tablet 90 tablet 5 Sig: Take 1 tablet by mouth every 4 hours as needed. FOR NAUSEA Authorizing Provider: SAGAR BARTH APRN.CNP [facility]09-20-2024 Miscellaneous Notes* Telephone Encounter - Sagar Barth [...] [facility] documented in this encounterWayne Healthcare [facility] Campus09-20-2024 Telephone encounter Note * Telephone Encounter - [...] NAUSEA Pharmacy Name: [facility]09-20-[facility]24 Telephone encounter Note* Telephone Encounter - Michelle Givens RN - 11/10/2023 1:26 PM EDT patient requesting refill via Agilyxhart. Last OV: 09/19/2023 Future OV: None scheduled Last prescribed: 4 months ago (07/10/2023) by Sagar Barth APRN.SUSTAINABILITY ENGINEER Requested Prescriptions Pending Prescriptions Disp Refills ZOLMitriptan (ZOMIG) 5 mg nasal spray 10 Each 5 Sig: Use 1 Thompson in the nose as needed at onset [...] day as needed for muscle spasm (migraine). [facility]08-23-[facility] History of Present illness Narrative* Getachew Domingo RN - 10/13/2023 12:44 PM EDT Pt in for Vyepti infusion. Pt rated headache 8 /10. Pt has severe nausea and mild dizziness. Educated pt on medications to be administered. Pt agreed to proceed as ordered. Career Developer: yes Zofran 8 mg IVP given for [...] Patient d/c via wheelchair.. documented in this encounterWayne Healthcare [facility] Campus08-20-2024 History of Present illness Narrative* Lamont Blair MD - 10/10/2023 10:04 AM EDTAssociated Problem(s): Mild persistent asthma with (acute) exacerbation ([facility]) Continued symptoms and treat with prednisone [...] Visit Mild persistent asthma with (acute) exacerbation ([facility]) Continued symptoms and treat with prednisone [...] 800-160 MG per tablet documented in this encounterKindred [id number] History of Present illness Narrative* Sagar Barth APRN.SUSTAINABILITY ENGINEER - 09/19/2023 2:30 PM EDT Images from [...] XL, Qudexy) Anti-Depressant and Antipsychotic Amitriptyline (Elavil) Rosa Sanchez (Eskalith, Lithobid) Nortriptyline (Pamelor, Aventyl) Anti-Migraine Dihydroergotamine [...] ZOLMitriptan (ZOMIG) 5 mg nasal spray^Use 1 Thompson in the nose as needed at onset [...] these with the patient: yes Sagar Barth APRN.SUSTAINABILITY ENGINEER HEADACHE SCORES: 03/22/2023 07/10/2023 09/19/2023 Headache Questions [...] and fluent without dysarthria. Short and termite treater memory, cognition and general fund of knowledgeare [...] XL, Qudexy) Anti-Depressant and Antipsychotic Amitriptyline (Elavil) Rosa Sanchez (Eskalith, Lithobid) Nortriptyline (Pamelor, Aventyl) Blood Pressure [...] which included preparing to see the patient, fhde-ia-epvj patient care, completing clinical documentation, obtaining and/or reviewing separately obtained history, counseling and educating the patient/family/caregiver, ordering medications, tests, or procedures, and care coordination (not separately reported). Sagar Barth APRN.[facility] Headache Section [facility] September 19, 2023 documented in this encounterWayne Healthcare Main Campus06-28-2024 Instructions* Patient Instructions* Curtis Lepe PA-C - 08/18/2023 2:39 PM EDT You received a greater occipital nerve block (GONB) today You may feel sore tomorrow at the site of the injection. You may use heat or ice for discomfort andgentle stretching. This should resolve in 24-36 hours. Greater Occipital Nerve Block (GONB) Article in [place] [employer] Journal By: Molina Barraza MD Many patients with chronic headache report that their pain typically arises from the neck or, more specifically, the base of the skull. Often that pain arises on one side or the other and extends forward to involve the top of the head, the gnosticist, the forehead, the eye or some combination [...] give it at least one more try. https://americanheadachesociety.org/wp-content/uploads//Bcgklxoqi-Cwcps-M locks_Jun-2009.pdf documented in this encounterWayne Healthcare [facility] Campus06-28-2024 History of Present illness Narrative* Curtis Lepe [...] 1 month Curtis Lepe PA-C Headache [facility] August 18, 2023 documented in this encounterWayne Healthcare [facility] Campus06-26-2024 Telephone encounter Note * Telephone Encounter - Michelle Givens RN - 08/16/2023 9:18 AM EDT Forwarded to provider for review. PAPO: 07/10/2023 Future OV: 09/19/2023 Encounter from [facility] today 08/16/2023 [facility]06-26-[facility]24 Miscellaneous Notes* Telephone Encounter - Michelle Givens RN - 08/16/2023 9:18 AM EDT Forwarded to provider for review. PAPO: 07/10/2023 Future OV: 09/19/2023 Encounter from [facility] today 08/16/2023 documented in this encounterWayne Healthcare Main Campus05-20-2024 History of Present illness Narrative* Sagar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 10/19/2021): Unremarkable MRI of the brain JUAN A Recommendations: - Admit to EMU for VEEG monitoring, diagnostic evaluation Location: [facility] [place] - Visit with epileptologist prior to admission - Additional testing to be considered by epilepsy clinicians Signed: Geri Madera APRN.SUSTAINABILITY ENGINEER October 26, [address] Storey for review and recommendations. MD Recommendations (as discussed with Dr. Storey): - Please proceed with the above plan. Please route this encounter to the EMU Scheduling Pool ( P EMU ) or PMU Scheduling Pool ( P PMU ) through LOS & Follow up PHASE 1.0 AND 1.5 ORDER SYNOPSIS Patient: Margaret Nicholson ([id number]) Best contact number: [phone] Insurance: No coverage found. Scheduling Team: Please call for adult patients: Mendoza Torres ([phone]) Chucky Cantor ([phone]) Fabiola Sharpe([phone]) Nikkie Mahajan([phone]) Please call for pediatric patients: Chucky Cantor ([phone]) Fabiola Sharpe ([phone]) Mendoza Torres ([phone]) Nikkie Mahajan([phone]) Appointments and Tests PRE-PROCEDURE & PRE-OPERATIVE COVID [...] VNS off/on office visits. documented in this encounterWayne Healthcare Main Campus08-31-2022 Hospital Discharge instructions* Discharge Instructions* UMANG Garcia [...] Care Everywhere. * Non-Epileptic Seizure: General Info ([place]) documented in this encounterBON Geomerics Work Phone: [phone] History of Present illness Narrative* UMANG Garcia [...] hysterectomy who presented as a transfer from [facility] for seizure like episodes. Per records, [...] en route to outlying ED. On arrival [facility] ED, G[facility] 12. Per documentation, patient had at least 13 seizure like episodes, lasting 10-60 seconds, described as grand mal. She was given 10mg Valium IV, 1g Keppra IV, 720mg Phenobarbital IV. CT Head without contrast unremarkable. Labs unremarkable including normal TSH, lactic, negative UA. Transferred to [facility] ICU for further management. Per mother, [...] mass recently (last 6 months) at [facility] andis supposed to have a brain biopsy in November 2021. Patient recently saw Dr. Vicky De Dios ([facility]) on 08/06/21 for migraines and seizures. [...] On arrival to the Neuro ICU, Adrienne (PROOFER) witnessed two brief (~10 seconds) episodes of [...] patient and mom. Records requested from [facility] where patient states she was seen [...] hysterectomy who presented as a transfer from [facility] ED for seizure like episodes. NEUROLOGIC: - [...] UMANG Garcia CNP Neuro Critical Care Pager [phone] 10/20/2021 6:49 AM * Juan Francisco Peterson [...] saturating at 100%. documented in this encounterBON MORNINGSIDE HOSPITALCertified Security Solutions Work Phone: [phone] 472-760308-12-2022 NoteDISCHARGE SUMMARY DISCHARGE DATE: 10/02/2021 PRIMARY DIAGNOSES: [...] when pain free and no longer on narcotics.[facility]08-12-2022 NoteOPERATIVE NOTE OPERATION DATE: 10/01/2021 PROCEDURE: Total abdominal hysterectomy with partial bilateral salpingectomy with cystoscopy. PREOPERATIVE DIAGNOSIS: Menorrhagia, dysmenorrhea, dyspareunia, pelvic pain. POSTOPERATIVE DIAGNOSIS: Menorrhagia, dysmenorrhea, dyspareunia, pelvic pain. ANESTHESIA: General. SURGEON: Zay Blas D.O. CHANGE RELEASE MANAGER: VERNA Yap URINE OUTPUT: Yellow and clear. [...] the Recovery Room in stable condition. ??[facility] [phone] NotePROCEDURE: US PELVIS TRANSVAG, 08/14/2021 9:01 AM [...] Electronically authenticated by: NICOLE MEDELLIN Date: 2021-08-14 10:19[facility]11-04-2021 Hospital Discharge instructions* Instructions* Keven Ching DO - 12/24/2020 Continue all home medications as prescribed. Follow up with your family doctor and neurologist. Return to the emergency department for new, worsening or worrisome symptoms. documented in this encounterAM Analytics Phone: evaluation note* Diagnosis Migraine without status migrainosus, not intractable, unspecified migraine type- Primary documented in this encounter [employer] Phone: evaluation note* Diagnosis Seizure-like activity (HCC)- Primary Other convulsions Seizure disorder (HCC) Unspecified epilepsy without mention of intractable epilepsy Psychogenic nonepileptic seizure documented in this encounter [facility] [employer] Phone: evaluation note* Diagnosis Seizure-like activity (HCC)- Primary Other convulsions [facility] Diagnosis Psychogenic nonepileptic seizure- Primary Spells of trembling Abnormal involuntary movements Chronic intractable headache, unspecified headache type documented in this [facility]* Diagnosis Seizure-like activity (HCC)- Primary Other convulsions Psychogenic nonepileptic seizure [facility]* Diagnosis Seizure-like activity (HCC)- Primary Other convulsions [facility]* Diagnosis Chronic migraine w/o aura, not intractable, w/o stat migr- Primary documented in this encounter [facility]* Diagnosis Intractable chronic migraine without aura and with status migrainosus- Primary Chronic migraine without aura, with intractable migraine, so stated, with status migrainosus [facility]* Diagnosis Intractable chronic migraine without aura and with status migrainosus- Primary Chronic migraine without aura, with intractable migraine, so stated, with status migrainosus documented in this encounter [facility]* Diagnosis Chronic migraine w/o [...] with status migrainosus [facility]* Diagnosis Chronic migraine w/o aura, not intractable, w/o stat migr Cervicalgia Migraine without aura and without status migrainosus, not intractable Migraine without aura, without mention of intractable migraine without mention of status migrainosus documented [facility] this encounter [facility]* Diagnosis Intractable chronic migraine without [...] of status migrainosus documented in this encounter [facility]* Diagnosis Intractable chronic migraine without aura and without status migrainosus- Primary Chronic migraine without aura, with intractable migraine, so stated, without mention of status migrainosus documented in this encounter [facility]* Diagnosis Intractable chronic migraine without aura and without status migrainosus- Primary Chronic migraine without aura, with intractable migraine, so stated, without mention of status migrainosus documented in this encounter [facility]* Diagnosis Acute right flank pain- Primary [...] (CMS/HCC) Pain, dental documented [facility]* Diagnosis Chronic migraine without aura, with intractable migraine, so stated, with status migrainosus- Primary Intractable chronic migraine without aura and with status migrainosus Chronic migraine without aura, with intractable migraine, so stated, with status migrainosus [facility]* Diagnosis Chronic migraine without aura, with intractable migraine, so stated, with status migrainosus- Primary Intractable chronic migraine without aura and with status migrainosus Chronic migraine without aura, with intractable migraine, so stated, with status migrainosus documented in this encounter [facility]* Diagnosis Acute right flank pain- Primary Mild persistent asthma without complication (CMS/HCC) Morbid obesity (CMS/HCC) Morbid obesity Body mass index [BMI] 45.0-49.9, adult (Z68.42) Acute bronchitis due to other specified organisms- Primary Mild persistent asthma with (acute) exacerbation ([facility]) Acute bronchitis due to other specified organisms- Primary Mixed bipolar I disorder ([facility]) Bipolar I disorder, most recent episode (or current) mixed, unspecified Mild persistent asthma without complication ([facility])- Primary Class 3 severe obesity due to excess calories without serious comorbidity with body mass index (BMI) of 50.0 to 59.9 in adult ([facility]) Fatigue, unspecified type Mixed bipolar I disorder ([facility]) Bipolar I disorder, most recent episode (or current) mixed, unspecified Chronic migraine without aura without status migrainosus, not intractable ([facility]) Pain, dental Pain, dental [facility]* Diagnosis Chronic migraine without aura, with intractable migraine, so stated, with status migrainosus- Primary documented in this encounter [facility]* Diagnosis Chronic migraine without aura, with intractable migraine, so stated, with status migrainosus- Primary Intractable chronic migraine without aura and with status migrainosus Chronic migraine without aura, with intractable migraine, so stated, with status migrainosus documented in this encounter [facility]* Diagnosis Acute right flank pain- Primary Mild persistent asthma without complication ([facility]) Morbid obesity ([facility]) Morbid obesity Body mass index [BMI] 45.0-49.9, adult (Z68.42) Acute bronchitis due to other specified organisms- Primary Mild persistent asthma with (acute) exacerbation ([facility]) Acute bronchitis due to other specified organisms- Primary Mixed bipolar I disorder ([facility]) Bipolar I disorder, most recent episode (or current) mixed, unspecified Mild persistent asthma without complication ([facility])- Primary Class 3 severe obesity due to excess calories without serious comorbidity with body mass index (BMI) of 50.0 to 59.9 in adult ([facility]) Fatigue, unspecified type Mixed bipolar I disorder ([facility]) Bipolar I disorder, most recent episode (or current) mixed, unspecified Chronic migraine without aura without status migrainosus, not intractable ([facility]) Pain, dental Mild persistent asthma with (acute) exacerbation ([facility])- Primary Generalized edema Edema SOB (shortness of breath) on exertion Shortness of breath [facility]* Diagnosis Acute right flank pain- Primary Mild persistent asthma without complication ([facility]) Morbid obesity ([facility]) Morbid obesity Body mass index [BMI] 45.0-49.9, adult (Z68.42) Acute bronchitis due to other specified organisms- Primary Mild persistent asthma with (acute) exacerbation ([facility]) Acute bronchitis due to other specified organisms- Primary Mixed bipolar I disorder ([facility]) Bipolar I disorder, most recent episode (or current) mixed, unspecified Mild persistent asthma without complication ([facility])- Primary Class 3 severe obesity due to excess calories without serious comorbidity with body mass index (BMI) of 50.0 to 59.9 in adult ([facility]) Fatigue, unspecified type Mixed bipolar I disorder ([facility]) Bipolar I disorder, most recent episode (or current) mixed, unspecified Chronic migraine without aura without status migrainosus, not intractable ([facility]) Pain, dental Mild persistent asthma with (acute) exacerbation ([facility])- Primary Generalized edema Edema SOB (shortness of breath) on exertion Shortness of breath COVID-19 documented [facility] encounter [facility]* Diagnosis Severe persistent asthma without complication ([facility]) documented [facility] encounter [facility]* Diagnosis Acute bronchitis due to other specified organisms- Primary Mild persistent asthma with (acute) exacerbation ([facility]) [facility]* Diagnosis Acute bronchitis due to other specified organisms- Primary Mixed bipolar I disorder ([facility]) Bipolar I disorder, most recent episode (or current) mixed, unspecified documented [facility]* Diagnosis Acute right flank pain- Primary Mild persistent asthma without complication ([facility]) Morbid obesity ([facility]) Morbid obesity Body mass index [BMI] 45.0-49.9, adult (Z68.42) Acute bronchitis due to other specified organisms- Primary Mild persistent asthma with (acute) exacerbation ([facility]) Acute bronchitis due to other specified organisms- Primary Mixed bipolar I disorder ([facility]) Bipolar I disorder, most recent episode (or current) mixed, unspecified Mild persistent asthma without complication ([facility])- Primary Class 3 severe obesity due to excess calories without serious comorbidity with body mass index (BMI) of 50.0 to 59.9 in adult ([facility]) Fatigue, unspecified type Mixed bipolar I disorder ([facility]) Bipolar I disorder, most recent episode (or current) mixed, unspecified Chronic migraine without aura without status migrainosus, not intractable ([facility]) Pain, dental Mild persistent asthma with (acute) exacerbation ([facility])- Primary Generalized edema Edema SOB (shortness of breath) on exertion Shortness of breath Generalized abdominal pain- Primary Abdominal pain, generalized Intractable nausea and vomiting Mild persistent asthma with (acute) exacerbation ([facility]) documented in this encounter [facility]* Diagnosis Acute right flank pain- Primary Mild persistent asthma without complication ([facility]) Morbid obesity ([facility]) Morbid obesity Body mass index [BMI] 45.0-49.9, adult (Z68.42) Acute bronchitis due to other specified organisms- Primary Mild persistent asthma with (acute) exacerbation ([facility]) Acute bronchitis due to other specified organisms- Primary Mixed bipolar I disorder ([facility]) Bipolar I disorder, most recent episode (or current) mixed, unspecified Mild persistent asthma without complication ([facility])- Primary Class 3 severe obesity due to excess calories without serious comorbidity with body mass index (BMI) of 50.0 to 59.9 in adult ([facility]) Fatigue, unspecified type Mixed bipolar I disorder ([facility]) Bipolar I disorder, most recent episode (or current) mixed, unspecified Chronic migraine without aura without status migrainosus, not intractable ([facility]) Pain, dental Mild persistent asthma with (acute) exacerbation ([facility])- Primary Generalized edema Edema SOB (shortness of breath) on exertion Shortness of breath Generalized abdominal pain- Primary Abdominal pain, generalized Intractable nausea and vomiting Mild persistent asthma with (acute) exacerbation ([facility]) Pelvic pain in female Unspecified symptom associated with female genital organs Complex ovarian cyst documented in this encounter [facility]* Diagnosis Acute right flank pain- Primary Mild persistent asthma without complication ([facility]/HCC) Morbid obesity ([facility]) Morbid obesity Body mass index [BMI] 45.0-49.9, adult (Z68.42) Acute bronchitis due to other specified organisms- Primary Mild persistent asthma with (acute) exacerbation ([facility]) Acute bronchitis due to other specified organisms- Primary Mixed bipolar I disorder ([facility]) Bipolar I disorder, most recent episode (or current) mixed, unspecified Mild persistent asthma without complication ([facility])- Primary Class 3 severe obesity due to excess calories without serious comorbidity with body mass index (BMI) of 50.0 to 59.9 in adult ([facility]) Fatigue, unspecified type Mixed bipolar I disorder ([facility]) Bipolar I disorder, most recent episode (or current) mixed, unspecified Chronic migraine without aura without status migrainosus, not intractable ([facility]) Pain, dental Mild persistent asthma with (acute) exacerbation ([facility])- Primary Generalized edema Edema SOB (shortness of breath) on exertion Shortness of breath Generalized abdominal pain- Primary Abdominal pain, generalized Intractable nausea and vomiting Mild persistent asthma with (acute) exacerbation ([facility]) Cyst of right ovary Other and unspecified ovarian cyst Pelvic pain in female Unspecified symptom associated with female genital organs Pelvic peritoneal adhesions, female Pelvic peritoneal adhesions, female (postoperative) (postinfection) [facility] Bilateral ovarian cysts- Primary Other and unspecified ovarian cyst Preop testing Unspecified pre-operative examination documented in this encounter [facility]* Diagnosis Bilateral ovarian cysts- Primary Other and unspecified ovarian cyst Moderate asthma with acute exacerbation, unspecified whether persistent Encounter for preoperative pulmonary examination [facility] Acute cough [R05.1]- Primary documented in this encounter [facility]* Diagnosis Intractable chronic migraine without aura and without status migrainosus- Primary Chronic migraine without aura, with intractable migraine, so stated, without mention of status migrainosus [facility] Diagnosis Asthma, unspecified asthma severity, unspecified whether complicated, unspecified whether persistent- Primary Bilateral ovarian cysts Other and unspecified ovarian cyst Moderate asthma with acute exacerbation, unspecified whether persistent Encounter for preoperative pulmonary examination Pulmonary nodule Other diseases of lung, not elsewhere classified Gastroesophageal reflux disease, unspecified whether esophagitis present documented in this encounter [facility]* Diagnosis Cyst of right ovary- Primary Other and unspecified ovarian cyst documented in this encounter [facility]* Diagnosis Preop testing- Primary Unspecified pre-operative examination Bilateral ovarian cysts Other and unspecified ovarian cyst documented in this encounter [facility]* Diagnosis S/P bilateral salpingo-oophorectomy Acquired absence of organ, genital organs documented in this encounter [facility]* Diagnosis Post-op pain- Primary Other acute postoperative pain documented in this encounter [facility]* Diagnosis Acute right flank pain- Primary Mild persistent asthma without complication (CMS/HCC) Morbid obesity ([facility]/HCC) Morbid obesity Body mass index [BMI] [...] (BMI) of 50.0 to 59.9 in adult ([facility]) Fatigue, unspecified type Mixed bipolar I disorder ([facility]) Bipolar I disorder, most recent episode (or current) mixed, unspecified Chronic migraine without aura without status migrainosus, not intractable ([facility]) Pain, dental Mild persistent asthma with (acute) exacerbation ([facility]/HCC)- Primary Generalized edema Edema SOB (shortness of breath) on exertion Shortness of breath Generalized abdominal pain- Primary Abdominal pain, generalized Intractable nausea and vomiting Mild persistent asthma with (acute) exacerbation ([facility]/HCC) Visit for wound check Yeast infection [facility] Diagnosis Abdominal wall cellulitis- Primary Postoperative surgical complication involving genitourinary system associated with genitourinary procedure, unspecified complication Postoperative surgical complication involving genitourinary system associated with genitourinary procedure documented in this encounter [facility]* Diagnosis Acute right flank pain- Primary Mild persistent asthma without complication (CMS/HCC) Morbid obesity ([facility]) Morbid obesity Body mass index [BMI] 45.0-49.9, adult (Z68.42) Acute bronchitis due to other specified organisms- Primary Mild persistent asthma with (acute) exacerbation (CMS/HCC) Acute bronchitis due to other specified organisms- Primary Mixed bipolar I disorder (CMS/HCC) Bipolar I disorder, most recent episode (or current) mixed, unspecified Mild persistent asthma without complication ([facility])- Primary Class 3 severe obesity due to excess calories without serious comorbidity with body mass index (BMI) of 50.0 to 59.9 in adult ([facility]) Fatigue, unspecified type Mixed bipolar I disorder ([facility]) Bipolar I disorder, most recent episode (or current) mixed, unspecified Chronic migraine without aura without status migrainosus, not intractable ([facility]) Pain, dental Mild persistent asthma with (acute) exacerbation ([facility])- Primary Generalized edema Edema SOB (shortness of breath) on exertion Shortness of breath Generalized abdominal pain- Primary Abdominal pain, generalized Intractable nausea and vomiting Mild persistent asthma with (acute) exacerbation ([facility]) Well woman exam with routine gynecological exam Routine gynecological examination [facility] Diagnosis Postoperative surgical complication involving genitourinary system associated with genitourinary procedure, unspecified complication- Primary Post-op pain Other acute postoperative pain Sweating profusely Generalized hyperhidrosis Menopausal symptoms Symptomatic menopausal or female climacteric states Nausea and vomiting, unspecified vomiting type [facility]* Diagnosis Post-operative pain- Primary Other acute postoperative pain documented in this encounter [facility]* Diagnosis Muscle spasm- Primary Spasm of muscle Fatigue due to depression Nausea and vomiting, unspecified vomiting type Mild persistent asthma without status asthmaticus without complication Psychogenic nonepileptic seizure [facility]* Diagnosis Postoperative surgical complication involving genitourinary system associated with genitourinary procedure, unspecified complication documented in this encounter [facility]* Diagnosis Postoperative surgical complication involving genitourinary system associated with genitourinary procedure, unspecified complication documented in this encounter [facility] note* Diagnosis Moderate persistent asthma, unspecified whether complicated documented in [facility]* Diagnosis Postoperative infection, unspecified type, subsequent encounter- Primary documented in this [facility]* Diagnosis Chronic migraine without aura, [...] of status migrainosus [facility] Diagnosis Intractable chronic migraine without aura and with status migrainosus- Primary Chronic migraine without aura, with intractable migraine, so stated, with status migrainosus Nausea Nausea alone Generalized anxiety disorder documented in this encounter [facility]* Diagnosis S/P bilateral salpingo-oophorectomy- Primary Acquired absence of organ, genital organs Menopausal symptoms Symptomatic menopausal or female climacteric states documented in this encounter [facility] note* Diagnosis Moderate persistent asthma with acute exacerbation- Primary Acute pansinusitis, recurrence not specified Antibiotic-induced yeast infection documented in this encounter [facility] note* Diagnosis Moderate persistent asthma, unspecified whether complicated documented in this encounter [facility] note* Diagnosis Intractable chronic migraine without aura and without status migrainosus Chronic migraine without aura, with intractable migraine, so stated, without mention of status migrainosus [facility]* Diagnosis Weight loss- Primary Loss of weight Moderate persistent asthma with acute exacerbation Seasonal allergic rhinitis, unspecified trigger documented in this encounter [facility]* Diagnosis Seasonal allergic rhinitis, unspecified trigger documented in this encounter [facility] note* Diagnosis Family history of genetic disorder- Primary Family history of other condition documented [facility] Diagnosis Acute right flank pain- [...] Dyspareunia in female [facility] Diagnosis Status migrainosus- Primary Variants of [...] with status migrainosus [facility]* Diagnosis Eye infection, bilateral- Primary Ingrown nail of great toe documented in this encounter [facility]* Diagnosis Intractable chronic migraine without aura and without status migrainosus- Primary Chronic migraine without aura, with intractable migraine, so stated, without mention of status migrainosus [facility] Diagnosis Chronic migraine without aura, with intractable migraine, so stated, with status migrainosus- Primary Intractable chronic migraine without aura and with status migrainosus Chronic migraine without aura, with intractable migraine, so stated, with status migrainosus [facility]* Diagnosis Intractable chronic migraine without aura and with status migrainosus- Primary Chronic migraine without aura, with intractable migraine, so stated, with status migrainosus Status migrainosus Variants of migraine, not elsewhere classified, without mention of intractable migraine without mention of status migrainosus [facility]* Diagnosis Family history of genetic disorder- Primary Family history of other condition documented in this encounter [facility]* Diagnosis Allergic reaction, sequela- Primary documented in this encounter [facility] note* Diagnosis Intractable chronic migraine without aura and without status migrainosus- Primary Chronic migraine without aura, with intractable migraine, so stated, without mention of status migrainosus [facility] Diagnosis Acute right flank pain- Primary Mild persistent asthma without complication (HCC) Morbid obesity ([facility]-HCC) Morbid obesity Body mass index [BMI] [...] (BMI) of 50.0 to 59.9 in adult ([facility]) Fatigue, unspecified type Mixed bipolar I [...] vomiting Mild persistent asthma with (acute) exacerbation ([facility]) Hot flashes due to surgical menopause [facility] Diagnosis Moderate persistent asthma, unspecified whether complicated documented [facility]* Diagnosis Muscle spasm Spasm of muscle documented in this [facility]* Diagnosis Left otitis media, unspecified otitis media type- Primary Mild asthma with exacerbation, unspecified whether persistent documented in this [facility]* Diagnosis Moderate asthma with acute exacerbation, unspecified whether persistent documented in this [facility]* Diagnosis JUAN DAVID (obstructive sleep apnea)- Primary Obstructive sleep apnea (adult) (pediatric) documented in this [facility]* Diagnosis Moderate persistent asthma without complication- Primary Gastroesophageal reflux disease without esophagitis Esophageal reflux Environmental allergies Other allergy, other than to medicinal agents documented [facility]* Diagnosis Moderate persistent asthma without [...] sent through Care Everywhere. * Ingrown toenail (Prydeinig) [facility] System[facility]ructionsNot on file documented in this encounter[facility] SystemInstructionsNot on file documented in this encounterPro[facility] SystemInstructionsNot on file documented in this encounterPro[facility] SystemInstructions* Attachments The following attachments cannot be sent through Care Everywhere. * Olopatadine (Ophthalmic) (Prydeinig) documented in this encounterProMedica Health SystemReason for referral (narrative)* Outpatient Procedure (Routine) - Pending ReviewSpecialtyDiagnoses / ProceduresReferred By ContactReferred To [facility]NE[facility]OLOGICAL INSTITUTE Diagnoses Seizure-like activity (HCC) Procedures EPIL EEG LEAD PLACEMENT EEG EXTENDED MONITORING 61-119 MINUTES ELECTROENCEPHALOGRAM REC COMA/SLEEP ONLY Geri Madera APRN.SUSTAINABILITY ENGINEER [address] [place] [address] [place] [address] Referral IDStatusMarlimercy mccune-brooks hospitalStbentonville DateExpiration DateVisits RequestedVisits [id number] Review Auto-Generated Referral / [facility] for referral (narrative)* Outpatient Procedure (Routine) - Pending ReviewSpecialtyDiagnoses / ProceduresReferred By ContactReferred To [facility] Diagnoses Psychogenic nonepileptic seizure Spells of trembling Procedures EPIL AMBULATORY EEG EEG COMPLETE STD PHYS/QHP&GT;84 HR W/O Tyrone Diaz MD, PhD [id number] [place] [address] Referral IDStatusReasonStart DateExpiration DateVisits RequestedVisits [id number] Review Auto-Generated Referral * Outpatient Procedure (Routine) - Pending ReviewSpecialtyDiagnoses / Procedures Referred By ContactReferred To [facility] Diagnoses Psychogenic nonepileptic seizure Spells of trembling Procedures EPIL AMBULATORY EEG EEG COMPLETE STD PHYS/QHP&GT;84 HR W/O Tyrone Diaz MD, PhD [id number] [place] [address] Referral IDStatusReasonStart DateExpiration DateVisits RequestedVisits [id number] Review Auto-Generated Referral / * Consult, Test, Treat (Routine) - AuthorizedSpecialtyDiagnoses / Procedures Referred By ContactReferred To Contact Diagnoses Chronic intractable headache, unspecified headache type Procedures CONSULT TO HEADACHE CLINIC OFFICE/OUTPATIENT NEW HIGH MDM 60-74 MINUTES Tyrone Dolan MD, PhD [address] [place] [address] Referral IDStatusReasonStart DateExpiration DateVisits RequestedVisits [id number] PCP Requested Referral / [facility] for referral (narrative)* Outpatient Procedure (Routine) - Pending ReviewSpecialtyDiagnoses / ProceduresReferred By ContactReferred To [facility] Diagnoses Seizure-like activity (HCC) Procedures EPIL EEG ROUTINE ELECTROENCEPHALOGRAM REC COMA/SLEEP ONLY Nelly Saldaña PA-C [address] [place] [address] Neurological [place] [facility] [place] [address] Referral IDStatusReasonStbentonville DateExpiration DateVisits RequestedVisits [id number] Review Auto-Generated Referral [facility] for referral (narrative)* Misc (Routine) - Pending Review SpecialtyDiagnoses / ProceduresReferred By ContactReferred To Contact Procedures Discharge Follow-Up George Michelle MD [address] [facility], [address] [place] [address] Phone: tel: fax: Referral IDStatusReasonStart DateExpiration DateVisits RequestedVisits [id number] Review * Misc (Routine) - Pending ReviewSpecialtyDiagnoses / ProceduresReferred By ContactReferred To Contact Procedures Hygiene George Michelle MD [address] [address] Phone: tel: fax: Referral IDStatusMarliasonStart DateExpiration DateVisits RequestedVisits [id number] Review [facility] Advance Directives TypeDate RecordedPatient RepresentativeExplanationACP-Advance DirectiveACP-Power [...] push over 2-5 minutes. Given07/28/2022 8:23 AM ZDD035 mg magnesium sulfate 1 g in D5W [...] and Hematology/Oncology 4) Eclampsia or Preeclampsia New Bag/Syringe/Sqqpdu8307/28/2022 9:08 AM EDT1 g100 mL/hr methocarbamol iv infusion 1,000 mg in NaCl 0.9% 100 mL (ROBAXIN) 1,000 mg, INTRAVENOUS, Administer over 30 Minutes, ONCE, 1 dose, On Meg 07/28/22 at 0800, Administer IV while in recumbent position. Maintain position for at least 10-15 minutes following infusion. New Bag/Syringe/Unrmst2507/28/2022 8:32 AM EDT1,000 mg promethazine 25 mg [...] push over 2-5 minutes. Given11/11/2022 8:45 AM HFI585 mg magnesium sulfate 1 g in D5W [...] and Hematology/Oncology 4) Eclampsia or Preeclampsia New Bag/Syringe/Tgajoo3711/11/2022 9:21 AM EDT1 g100 mL/hr methocarbamol iv infusion 1,000 mg in NaCl 0.9% 100 mL (ROBAXIN) 1,000 mg, INTRAVENOUS, Administer over 30 Minutes, ONCE, 1 dose, On Mon11/11/22 at 0830, AdministerIV while in recumbent position. Maintain position for at least 10-15 minutes following infusion. New Bag/Syringe/Nnynnw0111/11/2022 8:50 AM EDT1,000 mg NaCl 0.9% 500 mL iv bolus 500 mL, INTRAVENOUS, at 999 mL/hr, Administer over 0.5 Hours, ONCE, 1 dose, On Mon11/11/22 at 0830 New Bag/Syringe/Klcbzs4411/11/2022 8:40 AM HWH770 mL999 mL/hr ondansetron (PF) 8 mg injection [...] By ContactReferred To Contact Jesse Borrego MD [address] [place] [address] Referral IDStatusReasonStart DateExpiration DateVisits RequestedVisits [id number] / ProceduresReferred By Contact Referred To Contact Diagnoses Intractable chronic migraine without aura and with status migrainosus Intractable chronic migraine without aura and without status migrainosus Procedures PROVIDER ORDERED FOLLOW UP OFFICE/OUTPATIENT [facility] 60 MINUTES Suzan Ivey APRN.SUSTAINABILITY ENGINEER [phone] Referral IDStatusReasonStart DateExpiration DateVisits RequestedVisits [id number] PCP Requested Referral /[id number] / ProceduresReferred By ContactReferred To Contact Diagnoses Intractable chronic migraine without aura and without status migrainosus Procedures PROVIDER ORDERED FOLLOW UP OFFICE/OUTPATIENT [facility] 60 MINUTES Sagar Barth APRN.SUSTAINABILITY ENGINEER [address] [place] [address] Referral IDStatusReasonStart DateExpiration DateVisits RequestedVisits [id number] PCP Requested Referral /[id number] / ProceduresReferred By ContactReferred To Contact Sagar Barth APRN.SUSTAINABILITY ENGINEER [address] [place] [id number] Referral IDStatusReasonStart DateExpiration DateVisits RequestedVisits [id number] / Procedures Referred By ContactReferred To ContactPsychology Diagnoses Psychogenic nonepileptic seizure Procedures CONSULT TO PSYCHOLOGY OFFICE/OUTPATIENT [facility] 60 MINUTES Curtis Lepe PA-C [address] [place] [address] Referral IDStatusReasonStart DateExpiration DateVisits RequestedVisits [id number] Review PCP Requested Referral / Additional Source Comments Source Comments (unrecognize d section and content) In the event this informatio n is protected by the Federal Confidentiality of Alcohol and Drug Abuse Patient Records regulations: The Federal rules restrict any use of the information to criminally investigate or prosecute any alcohol or drug abuse patient.[facility] CampusIn the event this information is protected by the Federal Confidentiality of Alcohol and Drug Abuse Patient Records regulations: The Federal rules restrict any use of the information to criminally investigate or prosecute any alcohol or drug abuse patient.[facility] CampusIn the event this information is protected by the Federal Confidentiality of Alcohol and Drug Abuse Patient Records regulations: The Federal rules restrict any use of the information to criminally investigate or prosecute any alcohol or drug abuse patient.[facility] CampusIn the event this information is protected by the Federal Confidentiality of Alcohol and Drug Abuse Patient Records regulations: The Federal rules restrict any use of the information to criminally investigate or prosecute any alcohol or drug abuse patient.[facility] CampusIn the event this information is protected by the Federal Confidentiality of Alcohol and Drug Abuse Patient Records regulations: The Federal rules restrict any use of the information to criminally investigate or prosecute any alcohol or drug abuse patient.[facility] CampusIn the event this information is protected by the Federal Confidentiality of Alcohol and Drug Abuse Patient Records regulations: The Federal rules restrict any use of the information to criminally investigate or prosecute any alcohol or drug abuse patient.[facility] CampusIn the event this information is protected by the Federal Confidentiality of Alcohol and Drug Abuse Patient Records regulations: The Federal rules restrict any use of the information to criminally investigate or prosecute any alcohol or drug abuse patient.[facility] CampusIn the event this information is protected by the Federal Confidentiality of Alcohol and Drug Abuse Patient Records regulations: The Federal rules restrict any use of the information to criminally investigate or prosecute any alcohol or drug abuse patient.[facility] CampusIn the event this information is protected by the Federal Confidentiality of Alcohol and Drug Abuse Patient Records regulations: The Federal rules restrict any use of the information to criminally investigate or prosecute any alcohol or drug abuse patient.[facility] CampusIn the event this information is protected by the Federal Confidentiality of Alcohol and Drug Abuse Patient Records regulations: The Federal rules restrict any use of the information to criminally investigate or prosecute any alcohol or drug abuse patient.[facility] CampusIn the event this information is protected by the Federal Confidentiality of Alcohol and Drug Abuse Patient Records regulations: The Federal rules restrict any use of the information to criminally investigate or prosecute any alcohol or drug abuse patient.[facility] CampusIn the event this information is protected by the Federal Confidentiality of Alcohol and Drug Abuse Patient Records regulations: The Federal rules restrict any use of the information to criminally investigate or prosecute any alcohol or drug abuse patient.[facility] CampusIn the event this information is protected by the Federal Confidentiality of Alcohol and Drug Abuse Patient Records regulations: The Federal rules restrict any use of the information to criminally investigate or prosecute any alcohol or drug abuse patient.[facility] CampusIn the event this information is protected by the Federal Confidentiality of Alcohol and Drug Abuse Patient Records regulations: The Federal rules restrict any use of the information to criminally investigate or prosecute any alcohol or drug abuse patient.[facility] CampusIn the event this information is protected by the Federal Confidentiality of Alcohol and Drug Abuse Patient Records regulations: The Federal rules restrict any use of the information to criminally investigate or prosecute any alcohol or drug abuse patient.[facility] CampusIn the event this information is protected by the Federal Confidentiality of Alcohol and Drug Abuse Patient Records regulations: The Federal rules restrict any use of the information to criminally investigate or prosecute any alcohol or drug abuse patient.[facility] CampusIn the event this information is protected by the Federal Confidentiality of Alcohol and Drug Abuse Patient Records regulations: The Federal rules restrict any use of the information to criminally investigate or prosecute any alcohol or drug abuse patient.[facility] CampusIn the event this information is protected by the Federal Confidentiality of Alcohol and Drug Abuse Patient Records regulations: The Federal rules restrict any use of the information to criminally investigate or prosecute any alcohol or drug abuse patient.[facility] CampusIn the event this information is protected by the Federal Confidentiality of Alcohol and Drug Abuse Patient Records regulations: The Federal rules restrict any use of the information to criminally investigate or prosecute any alcohol or drug abuse patient.[facility] CampusIn the event this information is protected by the Federal Confidentiality of Alcohol and Drug Abuse Patient Records regulations: The Federal rules restrict any use of the information to criminally investigate or prosecute any alcohol or drug abuse patient.[facility] CampusIn the event this information is protected by the Federal Confidentiality of Alcohol and Drug Abuse Patient Records regulations: The Federal rules restrict any use of the information to criminally investigate or prosecute any alcohol or drug abuse patient.[facility] CampusIn the event this information is protected by the Federal Confidentiality of Alcohol and Drug Abuse Patient Records regulations: The Federal rules restrict any use of the information to criminally investigate or prosecute any alcohol or drug abuse patient.[facility] CampusIn the event this information is protected by the Federal Confidentiality of Alcohol and Drug Abuse Patient Records regulations: The Federal rules restrict any use of the information to criminally investigate or prosecute any alcohol or drug abuse patient.[facility] CampusIn the event this information is protected by the Federal Confidentiality of Alcohol and Drug Abuse Patient Records regulations: The Federal rules restrict any use of the information to criminally investigate or prosecute any alcohol or drug abuse patient.[facility] CampusIn the event this information is protected by the Federal Confidentiality of Alcohol and Drug Abuse Patient Records regulations: The Federal rules restrict any use of the information to criminally investigate or prosecute any alcohol or drug abuse patient.[facility] CampusIn the event this information is protected by the Federal Confidentiality of Alcohol and Drug Abuse Patient Records regulations: The Federal rules restrict any use of the information to criminally investigate or prosecute any alcohol or drug abuse patient.[facility] CampusIn the event this information is protected by the Federal Confidentiality of Alcohol and Drug Abuse Patient Records regulations: The Federal rules restrict any use of the information to criminally investigate or prosecute any alcohol or drug abuse patient.[facility] CampusIn the event this information is protected by the Federal Confidentiality of Alcohol and Drug Abuse Patient Records regulations: The Federal rules restrict any use of the information to criminally investigate or prosecute any alcohol or drug abuse patient.[facility] CampusIn the event this information is protected by the Federal Confidentiality of Alcohol and Drug Abuse Patient Records regulations: The Federal rules restrict any use of the information to criminally investigate or prosecute any alcohol or drug abuse patient.[facility] CampusIn the event this information is protected by the Federal Confidentiality of Alcohol and Drug Abuse Patient Records regulations: The Federal rules restrict any use of the information to criminally investigate or prosecute any alcohol or drug abuse patient.[facility] CampusIn the event this information is protected by the Federal Confidentiality of Alcohol and Drug Abuse Patient Records regulations: The Federal rules restrict any use of the information to criminally investigate or prosecute any alcohol or drug abuse patient.[facility] CampusIn the event this information is protected by the Federal Confidentiality of Alcohol and Drug Abuse Patient Records regulations: The Federal rules restrict any use of the information to criminally investigate or prosecute any alcohol or drug abuse patient.[facility] CampusIn the event this information is protected by the Federal Confidentiality of Alcohol and Drug Abuse Patient Records regulations: The Federal rules restrict any use of the information to criminally investigate or prosecute any alcohol or drug abuse patient.[facility] CampusIn the event this information is protected by the Federal Confidentiality of Alcohol and Drug Abuse Patient Records regulations: The Federal rules restrict any use of the information to criminally investigate or prosecute any alcohol or drug abuse patient.[facility] CampusIn the event this information is protected by the Federal Confidentiality of Alcohol and Drug Abuse Patient Records regulations: The Federal rules restrict any use of the information to criminally investigate or prosecute any alcohol or drug abuse patient.[facility] CampusIn the event this information is protected by the Federal Confidentiality of Alcohol and Drug Abuse Patient Records regulations: The Federal rules restrict any use of the information to criminally investigate or prosecute any alcohol or drug abuse patient.[facility] CampusIn the event this information is protected by the Federal Confidentiality of Alcohol and Drug Abuse Patient Records regulations: The Federal rules restrict any use of the information to criminally investigate or prosecute any alcohol or drug abuse patient.[facility] CampusIn the event this information is protected by the Federal Confidentiality of Alcohol and Drug Abuse Patient Records regulations: The Federal rules restrict any use of the information to criminally investigate or prosecute any alcohol or drug abuse patient.[facility] CampusIn the event this information is protected by the Federal Confidentiality of Alcohol and Drug Abuse Patient Records regulations: The Federal rules restrict any use of the information to criminally investigate or prosecute any alcohol or drug abuse patient.[facility] CampusIn the event this information is protected by the Federal Confidentiality of Alcohol and Drug Abuse Patient Records regulations: The Federal rules restrict any use of the information to criminally investigate or prosecute any alcohol or drug abuse patient.[facility] CampusIn the event this information is protected by the Federal Confidentiality of Alcohol and Drug Abuse Patient Records regulations: The Federal rules restrict any use of the information to criminally investigate or prosecute any alcohol or drug abuse patient.[facility] CampusIn the event this information is protected by the Federal Confidentiality of Alcohol and Drug Abuse Patient Records regulations: The Federal rules restrict any use of the information to criminally investigate or prosecute any alcohol or drug abuse patient.[facility] CampusIn the event this information is protected by the Federal Confidentiality of Alcohol and Drug Abuse Patient Records regulations: The Federal rules restrict any use of the information to criminally investigate or prosecute any alcohol or drug abuse patient.[facility] CampusIn the event this information is protected by the Federal Confidentiality of Alcohol and Drug Abuse Patient Records regulations: The Federal rules restrict any use of the information to criminally investigate or prosecute any alcohol or drug abuse patient.[facility] CampusIn the event this information is protected by the Federal Confidentiality of Alcohol and Drug Abuse Patient Records regulations: The Federal rules restrict any use of the information to criminally investigate or prosecute any alcohol or drug abuse patient.[facility] CampusIn the event this information is protected by the Federal Confidentiality of Alcohol and Drug Abuse Patient Records regulations: The Federal rules restrict any use of the information to criminally investigate or prosecute any alcohol or drug abuse patient.[facility] CampusIn the event this information is protected by the Federal Confidentiality of Alcohol and Drug Abuse Patient Records regulations: The Federal rules restrict any use of the information to criminally investigate or prosecute any alcohol or drug abuse patient.[facility] CampusIn the event this information is protected by the Federal Confidentiality of Alcohol and Drug Abuse Patient Records regulations: The Federal rules restrict any use of the information to criminally investigate or prosecute any alcohol or drug abuse patient.[facility] CampusIn the event this information is protected by the Federal Confidentiality of Alcohol and Drug Abuse Patient Records regulations: The Federal rules restrict any use of the information to criminally investigate or prosecute any alcohol or drug abuse patient.[facility] CampusIn the event this information is protected by the Federal Confidentiality of Alcohol and Drug Abuse Patient Records regulations: The Federal rules restrict any use of the information to criminally investigate or prosecute any alcohol or drug abuse patient.[facility] CampusIn the event this information is protected by the Federal Confidentiality of Alcohol and Drug Abuse Patient Records regulations: The Federal rules restrict any use of the information to criminally investigate or prosecute any alcohol or drug abuse patient.[facility] CampusIn the event this information is protected by the Federal Confidentiality of Alcohol and Drug Abuse Patient Records regulations: The Federal rules restrict any use of the information to criminally investigate or prosecute any alcohol or drug abuse patient.[facility] CampusIn the event this information is protected by the Federal Confidentiality of Alcohol and Drug Abuse Patient Records regulations: The Federal rules restrict any use of the information to criminally investigate or prosecute any alcohol or drug abuse patient.[facility] CampusIn the event this information is protected by the Federal Confidentiality of Alcohol and Drug Abuse Patient Records regulations: The Federal rules restrict any use of the information to criminally investigate or prosecute any alcohol or drug abuse patient.[facility] CampusIn the event this information is protected by the Federal Confidentiality of Alcohol and Drug Abuse Patient Records regulations: The Federal rules restrict any use of the information to criminally investigate or prosecute any alcohol or drug abuse patient.[facility] CampusIn the event this information is protected by the Federal Confidentiality of Alcohol and Drug Abuse Patient Records regulations: The Federal rules restrict any use of the information to criminally investigate or prosecute any alcohol or drug abuse patient.[facility] CampusIn the event this information is protected by the Federal Confidentiality of Alcohol and Drug Abuse Patient Records regulations: The Federal rules restrict any use of the information to criminally investigate or prosecute any alcohol or drug abuse patient.[facility] CampusIn the event this information is protected by the Federal Confidentiality of Alcohol and Drug Abuse Patient Records regulations: The Federal rules restrict any use of the information to criminally investigate or prosecute any alcohol or drug abuse patient.[facility] CampusIn the event this information is protected by the Federal Confidentiality of Alcohol and Drug Abuse Patient Records regulations: The Federal rules restrict any use of the information to criminally investigate or prosecute any alcohol or drug abuse patient.[facility] CampusIn the event this information is protected by the Federal Confidentiality of Alcohol and Drug Abuse Patient Records regulations: The Federal rules restrict any use of the information to criminally investigate or prosecute any alcohol or drug abuse patient.[facility] CampusIn the event this information is protected by the Federal Confidentiality of Alcohol and Drug Abuse Patient Records regulations: The Federal rules restrict any use of the information to criminally investigate or prosecute any alcohol or drug abuse patient.[facility] CampusIn the event this information is protected by the Federal Confidentiality of Alcohol and Drug Abuse Patient Records regulations: The Federal rules restrict any use of the information to criminally investigate or prosecute any alcohol or drug abuse patient.[facility] CampusIn the event this information is protected by the Federal Confidentiality of Alcohol and Drug Abuse Patient Records regulations: The Federal rules restrict any use of the information to criminally investigate or prosecute any alcohol or drug abuse patient.[facility] CampusIn the event this information is protected by the Federal Confidentiality of Alcohol and Drug Abuse Patient Records regulations: The Federal rules restrict any use of the information to criminally investigate or prosecute any alcohol or drug abuse patient.[facility] CampusIn the event this information is protected by the Federal Confidentiality of Alcohol and Drug Abuse Patient Records regulations: The Federal rules restrict any use of the information to criminally investigate or prosecute any alcohol or drug abuse patient.[facility] CampusIn the event this information is protected by the Federal Confidentiality of Alcohol and Drug Abuse Patient Records regulations: The Federal rules restrict any use of the information to criminally investigate or prosecute any alcohol or drug abuse patient.[facility] CampusIn the event this information is protected by the Federal Confidentiality of Alcohol and Drug Abuse Patient Records regulations: The Federal rules restrict any use of the information to criminally investigate or prosecute any alcohol or drug abuse patient.[facility] CampusIn the event this information is protected by the Federal Confidentiality of Alcohol and Drug Abuse Patient Records regulations: The Federal rules restrict any use of the information to criminally investigate or prosecute any alcohol or drug abuse patient.[facility] CampusIn the event this information is protected by the Federal Confidentiality of Alcohol and Drug Abuse Patient Records regulations: The Federal rules restrict any use of the information to criminally investigate or prosecute any alcohol or drug abuse patient.[facility] CampusIn the event this information is protected by the Federal Confidentiality of Alcohol and Drug Abuse Patient Records regulations: The Federal rules restrict any use of the information to criminally investigate or prosecute any alcohol or drug abuse patient.[facility] Reason for Visit (unrecogniz ed section and content) ReasonCommentsHeadacheSpecialtyDiagnoses / ProceduresReferred By ContactReferred To Contact Diagnoses Intractable chronic migraine without aura and without status migrainosus Procedures INJECTION, EPTINEZUMAB-JJMR, 1 MG Sagar Barth, UMANG.SUSTAINABILITY ENGINEER [address] [place] [address] Phone: tel: fax: Neurology [address] [place], [place] Phone: tel: fax: Referral IDStatusReasonStart DateExpiration DateVisits RequestedVisits [id number]/[id number] SpecialtyDiagnoses / ProceduresReferred By ContactReferred To Contact Diagnoses Intractable chronic migraine without aura and without status migrainosus Procedures INJECTION, EPTINEZUMAB-JJMR, 1 MG Sagar Barth, DIRECTOR [employer]UST.SUSTAINABILITY ENGINEER [address] [place] [address] Phone: tel: fax: Neurology [address] [place] [place] [phone] Phone: tel: fax: ReasonCommentsInfusionHeadacheSpecialtyDiagnoses / ProceduresReferred By Contact Referred To ContactNeurology / HEADACHE Diagnoses NON-DHE #1 Procedures INFUSION HEADACHE Suzan Ivey APRN.SUSTAINABILITY ENGINEER [address] [place] [address] Neur Headache Main S[address] [place] [id number] Referral IDStatusReasonStart DateExpiration DateVisits RequestedVisits [id number]/31/[id number] SpecialtyDiagnoses / ProceduresReferred By ContactReferred To Contact Diagnoses Intractable chronic migraine without aura and without status migrainosus Procedures PROVIDER ORDERED FOLLOW UP OFFICE/OUTPATIENT [facility] 60 MINUTES Sagar Barth APRN.SUSTAINABILITY ENGINEER [address] [place] [address] Referral IDStatusReasonStart DateExpiration DateVisits RequestedVisits [id number] PCP Requested Referral [id number] / ProceduresReferred By ContactReferred To Contact Diagnoses Intractable chronic migraine without aura and without status migrainosus Procedures INJECTION, EPTINEZUMAB-JJMR, 1 MG Sagar Barth, UMANG.SUSTAINABILITY ENGINEER [address] [place] [address] Neur Headache Main S[address] [place] [address] Referral IDStatusReasonStart DateExpiration DateVisits RequestedVisits [id number]/[id number]/[id number] Block SpecialtyDiagnoses / ProceduresReferred By ContactReferred To ContactNeurology / HEADACHE Diagnoses NON-DHE #1 Procedures INFUSION HEADACHE Suzan Ivey APRN.SUSTAINABILITY ENGINEER [address] [place] [address] Neur Headache Main [address] [place] [address] ReasonCommentsFuture AppointmentNew [place], [place], AnyReasonComments[place] and D & C for miscarrageReasonCommentsNew Patient ReasonCommentsOrdersReasonCommentsSeizuresFollow UpReasonCommentsMigrainex 2 week lasts up to 4 days light sensitivity, sees silver dots looks like stars. Goes into convulsions during migraines. No meds for migraines has ever worked. ReasonCommentsAppointmentinfusionSpecialtyDiagnoses / ProceduresReferred By ContactReferred To ContactNeurology / HEADACHE Diagnoses DHE Procedures INFUSION HEADACHE Abdifatah Brady MD [address] [place] [address] Neur Headache Main [address] [place] [address] Referral IDStatusReasonStart DateExpiration DateVisits RequestedVisits [id number]/[id number] MigraineReason CommentsChronic MigraineReasonCommentsInsurance AuthorizationZomig 5MG nasal sprayReasonCommentsInfusionSpecialtyDiagnoses / ProceduresReferred By Contact Referred To ContactNeurology / HEADACHE Diagnoses POSSIBLE DHE/WAITING FOR ORDERS Procedures INFUSION HEADACHE Self Neur Headache [address] [place] [address] Referral IDStatusReasonStart DateExpiration DateVisits RequestedVisits [id number]/21/202312/[id number] DateCommentsRefill Uoifxrv4912/09/2022ReasonOnset DateCommentsRefill Tlsvbdg0712/13/2022ReasonComments InfusionHEADACHE INFUSIONSReasonCommentsInsurance AuthorizationAimovig 70MG/ML auto-injectorsReasonCommentsAppointmentPatient currently receiving infusions for headache. She is interested in learning about reboot program. Please schedule patient for evaluation if appropriate to proceed.ReasonCommentsMigraineReason CommentsMigraineSpecialtyDiagnoses / ProceduresReferred By ContactReferred To ContactNeurology / HEADACHE Diagnoses Chronic migraine without aura, intractable, without status migrainosus Migraines Nerve Block Procedures INJECTION AA&/STRD GREATER OCCIPITAL NERVE NERVE BLOCK Sagar Barth, UMANG.SUSTAINABILITY ENGINEER [address] [place] [address] Tyrone Dolan MD, PhD [address] [facility] [address] [place] [address] Referral IDStatusReasonStart DateExpiration DateVisits RequestedVisits [id number]/8/202412/[id number] DateCommentsRefill Qohkrgy7011/10/2023SpecialtyDiagnoses / ProceduresReferred By ContactReferred To Contact Diagnoses Intractable chronic migraine without aura and without status migrainosus Procedures INJECTION, EPTINEZUMAB-JJMR, 1 MG Sagar Barth, DIRECTOR TRUST.SUSTAINABILITY ENGINEER [address] [place] [address] Neur Headache Main [address] [place] [address] ReasonCommentsFatigueDizzy, shaky, very tired, can't stay awake. [...] for preoperative pulmonary examination Mundo Martinez MD [address] [place] [address] Phone: tel: fax: Jefry Hills MD [address], [address] [address] Phone: tel: fax: Referral IDStatusReasonStart DateExpiration DateVisits RequestedVisits [id number] Review Specialty Services Required [id number] CheckReasonCommentsFlu SymptomsAbdominal PainSpecialtyDiagnoses / ProceduresReferred By ContactReferred To Contact Diagnoses Sepsis ([facility]) Abdominal wall cellulitis [facility] - Emergency Department [address] [facility] [place] [address] Phone: tel: fax: Referral IDStatusReasonStart DateExpiration DateVisits RequestedVisits [id number] Women VisitReasonCommentsPost-op2 week post-opReasonCommentsEstablish CareReasonCommentsMigraineChronic MigraineReason CommentsInsurance AuthorizationubrelvyReasonCommentsFollow-upReasonCommentssinus infectionReasonOnset DateCommentsMed Nooctk9005/24/2024ReasonOnset DateComments Refill Ijurzem1405/31/2024ReasonCommentsFatigueReasonCommentsMed Change Request ReasonCommentsVaginitis/Bacterial VaginosisReasonCommentsInfusionHeadache infusion schedulingReasonCommentsEye PainSpecialtyDiagnoses / ProceduresReferred By ContactReferred To ContactNeurology / HEADACHE Diagnoses NON-DHE INFUSION Procedures DEHYDROERGOTAMINE INJECTION INFUSION HEADACHE [facility] [address] [place] [address] Phone: tel:93 Neurology [address] [place] [address] Phone: tel: fax: Referral IDStatusReasonStart DateExpiration DateVisits RequestedVisits [id number]/13/202512/[id number] AuthorizationZavzpret 10MG/ACT solutionZavzpret 10MG/ACT solutionReasonOnset DateCommentsGenetic Testing Prior Authorization Btkoslb8806/25/2024ReasonComments Discuss HormonesReasonCommentsNasal CongestionReasonCommentsAnnual ExamObesity ReasonOnset DateCommentsSleep Lab12/12/2024omp [...] RN) * 1633 (Stop Bag - Provider: Lilile Antonio RN) diazePAM (VALIUM) tablet 5 mg [...] needed per OBGYN) lidocaine-EPINEPHrine (XYLOCAINE W/EPI) 1 %-1:261197 injection 30 mL (COMPLETED) 30 mL, intradermal, [...] * 1525 (Given - Provider: Lamar Carrington [facility]) iohexoL (OMNIPAQUE) 300 mg [...] section and content) DATE CREATED AUTHOR 12/26/2020 [facility] DATE CREATED AUTHOR AUTHOR'S ORGANIZ ATION 10/25/2021 [facility] DATE CREATED AUTHOR AUTHOR'S ORGANIZ ATION 05/26/2022 [facility] DATE CREATED AUTHOR AUTHOR'S ORGANIZ ATION 08/02/2022 [facility] DATE CREATED AUTHOR AUTHOR'S ORGANIZ ATION 07/20/2024 [facility] DATE CREATED AUTHOR AUTHOR'S ORGANIZ ATION 09/07/2024 [facility] DATE CREATED AUTHOR AUTHOR'S ORGANIZ ATION 12/08/2024 [facility] DATE CREATED AUTHOR AUTHOR'S ORGANIZ ATION 12/18/2024 [facility] Ordered Prescriptions (unrec ognized section and content) PrescriptionSigDispensedRefillsStart DateEnd Date lamoTRIgine (LAMICTAL) 25 MG tablet Take 2 tablets by mouth daily 30 tablet Care Teams (unrecognized sec tion and content) Team MemberRelationshipSpecialtyStart DateEnd Date Derik Weber, DIRECTOR TRUST - SUSTAINABILITY ENGINEER [address] [place] [address] PCP - GeneralNurse Znvmbhphtefn04/4/21Team MemberRelationshipSpecialtyStart Date End Date Abdifatah Brady (Historical) [...] Blair MD [address] [place] [address] PCP - GeneralFamily Medicine03/14/23Team MemberRelationshipSpecialtyStart DateEnd Date Abdifatah Brady (Historical) PCP - General05/21/13Team MemberRelationshipSpecialtyStart DateEnd Date Lamont Blair MD [address] [place] [address] PCP - GeneralFamily Medicine03/14/23Team MemberRelationshipSpecialtyStart DateEnd Date Lamont Blair MD [address] [place] [address] PCP - GeneralFamily Medicine03/14/23Team MemberRelationshipSpecialtyStart DateEnd Date Abdifatah Brady (Historical) PCP - General05/21/13Team MemberRelationshipSpecialtyStart DateEnd Date Abdifatah Brady (Historical) PCP - General05/21/13Team MemberRelationshipSpecialtyStart DateEnd Date Lmaont Blair MD [address] [place] [address] PCP - GeneralFamily Medicine03/14/23Team MemberRelationshipSpecialtyStart DateEnd Date Jose Antonio Abdifatah Lynn (Historical) PCP - General05/21/13Team MemberRelationshipSpecialtyStart DateEnd Date Lamont Blair MD [address] [place] [address] PCP - GeneralFamily Medicine03/14/23Team MemberRelationshipSpecialtyStart DateEnd Date Lamont Blair MD [address] [place] [address] PCP - GeneralFamily Medicine03/14/23Team MemberRelationshipSpecialtyStart DateEnd Date Lamont Blair MD [address] [place] [address] PCP - GeneralFamily Medicine03/14/23Team MemberRelationshipSpecialtyStart DateEnd Date Lamont Blair MD [address] [place] [address] PCP - GeneralFamily Medicine03/14/23Team MemberRelationshipSpecialtyStart DateEnd Date Lamont Blair MD [address] [place] [address] PCP - GeneralFamily Medicine03/14/23Team MemberRelationshipSpecialtyStart DateEnd Date Lamont Blair MD [address] [place] [address] PCP - GeneralFamily Medicine03/14/23Team MemberRelationshipSpecialtyStart DateEnd Date Lamont Blair MD [address] [place] [address] PCP - GeneralFamily Medicine03/14/23Team MemberRelationshipSpecialtyStart DateEnd Date Lamont Blair MD [address] [place] [address] PCP - GeneralFamily Medicine03/14/23Team MemberRelationshipSpecialtyStart DateEnd Date Lamont Blair MD [address] [place] [address] PCP - GeneralFamily Medicine03/14/23Team MemberRelationshipSpecialtyStart DateEnd Date Lamont Blair MD [address] [place] [address] PCP - GeneralFamily Medicine03/14/23Team MemberRelationshipSpecialtyStart DateEnd Date Lamont Blair MD [address] [place] [address] PCP - GeneralFamily Medicine03/14/23Team MemberRelationshipSpecialtyStart DateEnd Date Lamont Blair MD [address] [place] [address] PCP - GeneralFamily Medicine03/14/23Team MemberRelationshipSpecialtyStart DateEnd Date Lamont lBair MD [address] [place] [address] PCP - GeneralFamily Medicine03/14/23Team MemberRelationshipSpecialtyStart DateEnd Date Lamont Blair MD [address] [place] [address] PCP - GeneralFamily Medicine03/14/23Team MemberRelationshipSpecialtyStart DateEnd Date [...] Corine Gold MD [address] [facility] [place] [address] PCP - GeneralInternal Medicine03/25/24Team MemberRelationshipSpecialtyStart Date End Date Corine Gold MD [address], [place] [address] PCP - GeneralInternal Medicine03/25/24Team MemberRelationshipSpecialtyStart Date End Date Corine Gold MD [address], [place] [address] [facility] - [facility]03/25/24Team MemberRelationshipSpecialtyStart Date End Date Corine Gold MD [address] [place] [address] PCP - GeneralInternal Medicine03/25/24Team MemberRelationshipSpecialtyStart Date End Date Lamont Blair MD [facility] [place] [address] PCP - GeneralFamily Medicine03/14/23Team MemberRelationshipSpecialtyStart DateEnd Date Corine Gold MD [address] [place] [address] PCP - GeneralInternal Medicine03/25/24Team MemberRelationshipSpecialtyStart Date End Date Lamont Blair MD [address] [place] [address] PCP - [facility] Medicine03/14/23am MemberRelationshipSpecialtyStart DateEnd Date Lamont Blair MD [address] [place] [address] PCP - [facility]03/14/23am MemberRelationshipSpecialtyStart DateEnd Date Corine Gold MD [address], [place] [address] [facility]03/25/24 MemberRelationshipSpecialtyStart Date End Date Corine Gold MD [address], [place] [address] [facility]03/25/24am MemberRelationshipSpecialtyStart Date End Date Corine Gold MD [address] [place] [address] [facility]03/25/24am MemberRelationshipSpecialtyStart Date End Date Corine Gold MD [address] [place] [address] [facility]03/25/24Team MemberRelationshipSpecialtyStart Date End Date Corine Gold MD [address] [place] [address] PCP - GeneralInternal Medicine03/25/24am MemberRelationshipSpecialtyStart Date End Date Corine Gold MD [address], [place] [address] PCP - GeneralInternal Medicine03/25/24am MemberRelationshipSpecialtyStart Date End Date Corine Gold MD [address], [place] [address] PCP - [facility]03/25/24 MemberRelationshipSpecialtyStart Date End Date Corine Gold MD [address], [place] [address] PCP - [facility]03/25/24 MemberRelationshipSpecialtyStart Date End Date Corine Gold MD [address], [address] [place] [facility] [address] PCP - [facility]03/25/24am MemberRelationshipSpecialtyStart Date End Date Corine Gold MD [address], [address] [facility] [address] PCP - GeneralInternal Medicine03/25/24am MemberRelationshipSpecialtyStart Date End Date Corine Gold MD [address], [place] [address] PCP - GeneralInternal Medicine03/25/24Team MemberRelationshipSpecialtyStart Date End Date Abdifatah Brady (Historical) PCP - General05/21/13Team MemberRelationshipSpecialtyStart DateEnd Date Corine Gold MD [address] [place] [address] PCP - GeneralInternal Medicine03/25/24Team MemberRelationshipSpecialtyStart Date End Date Corine Gold MD [address] [place] [address] PCP - [facility]03/25/24am MemberRelationshipSpecialtyStart Date End Date Unallocated, Noms MD Anoop [address] [place] [address] PCP - [facility] Medicine04/22/24Team MemberRelationshipSpecialtyStart DateEnd Date Unallocated, Noms MD [address] [place] [address] PCP - [facility] Medicine04/22/24 MemberRelationshipSpecialtyStart DateEnd Date Corine Gold MD [address] [place] [address] PCP - [facility]06/11/24Team MemberRelationshipSpecialtyStart DateEnd Date Corine Gold MD [address] [place] [address] PCP - [facility]03/25/24Team MemberRelationshipSpecialtyStart Date End Date Corine Gold MD [address] [place] [address] PCP - [facility]06/11/24Team MemberRelationshipSpecialtyStart DateEnd Date Abdifatah Brady (Historical) PCP - General05/21/13am MemberRelationshipSpecialtyStart DateEnd Date Abdifatah Brady (Historical) PCP - General05/21/13am MemberRelationshipSpecialtyStart DateEnd Date Corine Gold MD [address], [place] [address] PCP - GeneralInternal Medicine03/25/24Team MemberRelationshipSpecialtyStart Date End Date Corine Gold MD [address], [address] [place] [facility] [place] [address] PCP - [facility]03/25/24Te MemberRelationshipSpecialtyStart Date End Date Corine Gold MD [address], [place] [address] PCP - [facility]03/25/24 MemberRelationshipSpecialtyStart Date End Date Corine Gold MD [address], [place] [address] PCP - GeneralInternal Medicine03/25/24Team MemberRelationshipSpecialtyStart Date End Date Corine Gold MD [address], [place] [address] PCP - GeneralInternal Medicine03/25/24am MemberRelationshipSpecialtyStart Date End Date Lamont Blair MD [facility]/14/ Unallocated, Arlen Davalos MD [address] [place] [address] PCP - GeneralFaorly Medicine Lamont Blair MD [address] [place] [address] PCP - [facility]05/21/2510Team MemberRelationshipSpecialtyStart Date End Date Coirne Gold MD [address] [facility] [address] [place], [place] [address] PCP - GeneralInternal Medicine03/25/24 Inactive Administered Medications [...] and Hematology/Oncology 4) Eclampsia or Preeclampsia New Bag/Syringe/Vrapyw3004/12/2023 12:24 PM EST2 g280 mL/hr methocarbamol iv infusion 1,000 mg in NaCl 0.9% 100 mL (ROBAXIN) 1,000 mg, INTRAVENOUS, Administer over 30 Minutes, ONCE, 1 dose, On Mon04/12/23 at 1130, AdministerIV while in recumbent position. Maintain position for at least 10-15 minutes following infusion. New Bag/Syringe/Yqqgii2004/12/2023 11:50 AM EST1,000 mg NaCl 0.9% 1,000 mL iv bolus 1,000 mL, INTRAVENOUS, at 999 mL/hr, Administer over 1 Hours, ONCE, 1 dose, On Mon04/12/23 at 1130 New Bag/Syringe/Kbkown5904/12/2023 11:30 AM EST1,000 mL999 mL/hr promethazine 25 [...] and Hematology/Oncology 4) Eclampsia or Preeclampsia New Bag/Syringe/Dgouli0804/13/2023 9:46 AM EST2 g250 mL/hr methocarbamol iv infusion 1,000 mg in NaCl 0.9% 100 mL (ROBAXIN) 1,000 mg, INTRAVENOUS, Administer over 30 Minutes, ONCE, 1 dose, On Meg 04/13/23 at 0830, AdministerIV while in recumbent position. Maintain position for at least 10-15 minutes following infusion. New Bag/Syringe/Jhdlxh6704/13/2023 9:12 AM EST1,000 mg NaCl 0.9% 1,000 mL iv bolus 1,000 mL, INTRAVENOUS, at 999 mL/hr, Administer over 1 Hours, ONCE, 1 dose, On Mon04/13/23 at 0830 New Bag/Syringe/Dqgrvn2904/13/2023 8:53 AM EST1,000 mL999 mL/hr promethazine 25 [...] 0928,Sedation/Dystonia/Akathisia/Anxiety 3rd line Given04/14/2023 9:28 AM EST25 zxRcqzr2904/14/2023 8:46 AM EST25 mg keTORolac 30 mg [...] and Hematology/Oncology 4) Eclampsia or Preeclampsia New Bag/Syringe/Ptgqim7004/14/2023 10:07 AM EST2 g250 mL/hr methocarbamol iv infusion 1,000 mg in NaCl 0.9% 100 mL (ROBAXIN) 1,000 mg, INTRAVENOUS, Administer over 30 Minutes, ONCE, 1 dose, On Mon04/14/23 at 0830, AdministerIV while in recumbent position. Maintain position for at least 10-15 minutes following infusion. Ifnbekned39/23/2024 9:30 AM ESTNew Bag/Syringe/Fwjcsk4904/14/2023 8:53 AM EST1,000 mg NaCl 0.9% 1,000 mL iv bolus 1,000 mL, INTRAVENOUS, at 999 mL/hr, Administer over 1 Hours, ONCE, 1 dose, On Mon04/14/23 at 0830 Nlymlcark91/23/2024 9:30 AM ZHY526 mL/hrNew Bag/Syringe/Nvahvm1004/14/2023 8:53 AM EST1,000 mL999 mL/hr prochlorperazine 10 [...] BE BASED ON THE PRIMARY CLINICAL RECORDS. SeeToo [facility]. provides no warranty or guarantee of the accuracy or completeness of information in this document.
--- OUTSIDE RECORDS SUMMARY | 2025-02-16 15:17 | XMS_ITS | CCD ---
Author Organization [facility] CliniSymd Care Team Providers Care Labor Relations Or Personnel Negotiator Name Role Phone Abdifatah Brady (Historical) Primary Care Provide r Unavailable Kuns COUNTER CHECKER - AGENCY SALES REPRESENTATIVE, Derik Santiago Primary Care Provider [phone] DERIK WEBER Primary Care Unavailable KEVEN CHING Attending Unavailable Kuns COUNTER CHECKER - AGENCY SALES REPRESENTATIVE, Derik Santiago Primary Care Provider LUCILA MOTA [...] Admitting Unavailable NEWSTEWART, NICHOLAS Consulting Unavailable UNLU, ISNDY Consulting Unavailable ROOPA ., DR GUTIERREZ Admitting Unavailable ROOPA ., DR GUTIERREZ Consulting Unavailable [facility] Primary Care Unavailable ROOPA ., DR GUTIERREZ Attending Unavailable KUNS, DR DERIK Santiago Primary Care Unavailable ROOPA ., DR GUTIERREZ Admitting Unavailable ROOPA ., DR GUTIERREZ Attending Unavailable ROOPA ., DR GUTIERREZ Consulting Unavailable ROOPA ., DR GUTIERREZ Admitting Unavailable ROOPA ., DR GUTIERREZ Attending Unavailable NADERER, DR LAMONT Garcia Primary Care Unavailable [facility] Primary Care Unavailable HAY ., DR HARMAN [...] Unavailable Lamont Blair MD Primary Care Provider [phone] Lamont Blair MD Primary Care Provider [phone] Corine Gold MD Primary Care Provider Corine Gold MD Primary Care Provider [phone] Unavailable Primary Care Provider Unavailabl e Unallocated , [place] Provider Primary Care [facility] Corine Glod MD Primary Care Provider Unavail able CORINE [...] ilable Lamont Blair MD Primary Care Provider [phone] Unallocatscott MORENO [place] Provider Primary Care Provi mahsa Lamont Blair MD Unavailable Allergies Allergy ClassificationReported Allergen(s)Allergy TypeDate of OnsetReaction(s) FacilityAnti-Epileptic Agents (1 source)levETIRAcetamDrug Xukmolh21-08-5769[facility]adcahyBiowipaic [facility] Work Phone: Cephalosporins (antibiotic) (1 source)CephalexinDrug Sptddhr38-42-5645YuzlLqryofbad ClinicDextromethorphan / Pyrilamine (1 source)Dextromethorphan / PyrilamineDrug Bdhczet72-53-5680ZkdhgLdnnuheho Clinic Work Phone: Dihydroergotamine (1 source)DihydroergotamineDrug Ulvxkac92-54-1981FcqbfoefltrYkuqbphyn Clinic DOPamine Antagonists (1 source)MetoclopramideDrug Icbeidv73-94-0596PsxrwdnaorxLtemnxgad Clinic Macrolides (antibiotic) (1 source)AzithromycinDrug Gizymqv57-27-3700Mxsps: See [facility] vortioxetine (1 source)vortioxetineDrug Ggjxusa86-29-5918OurtnIsnnsrvge Clinic (20 sources)Azithromycin; Translations: [AZITHROMYCIN]Drug Zxdhafm68-12-8998 Hives, Other: See [facility] (20 sources)carBAMazepineDrug Omxjjis43-25-9234Vzkur (See Comments)[facility] (20 sources)Cephalexin; Translations: [CEPHALEXIN]Drug Cvhmuws46-17-9387Anvbh, RashMerSt. Anne Hospital (20 sources)Metoclopramide; Translations: [METOCLOPRAMIDE]Drug Xreonpd45-18-6538 Hives, Intolerance, Unknown, Rash, Other (See Comments)[facility] (20 sources)PropranololDrug Wdzkgmo39-91-0954Oqxbw, Other (See Comments)[facility] (20 sources)Adhesive Tape-Silicones; Translations: [ADHESIVE TAPE-SILICONES]Drug Azuuaif73-23-9541TtzlGbcfvgicc Clinic (20 sources)Dextromethorphan / Pyrilamine; Translations: [PYRILAMINE-DEXTROMETHORPHAN]Drug Tzuxtau27-54-4631RxuuaVwvwlunrm Clinic Work Phone: (20 sources)vortioxetine; Translations: [VORTIOXETINE]Drug Heoffdr93-26-3684 [facility] Work Phone: (20 sources)Dihydroergotamine; Translations: [DIHYDROERGOTAMINE]Drug Allergy 79-40-9328Wmaiwprxnwo, GI intolerance, GI Disturbance, [facility] (1 source)AzithromycinDrug AllergyThe [facility] (1 source)bee venomDrug allergy (disorder)[facility] (1 source)CephalexinDrug AllergyThe [facility] (1 source)DesonideDrug AllergyThe [facility] (1 source)IothalamateDrug AllergyThe [facility] (2 sources)Propranolol; Translations: [PROPRANOLOL]Drug Khyarfb41-55-2934Nru [facility] Repository (1 source)[place] DMDrug allergy (disorder)63-78-8654Nfr [facility] (20 sources)levETIRAcetam; Translations: [LEVETIRACETAM]Drug Ooyrcdy45-22-1511 Itching, [facility] Work Phone: (1 source)ValproateDrug Pkwgyxa80-60-5747ZcazmKhomxyjya Clinic Work Phone: (20 sources)busPIRoneDrug Omhjecn99-76-4880QpsmsTEJQ Healthcare Work Phone: (20 sources)CarbamazepineAllergy to pvkomfeto82-18-1487AqoxfnxFSAV Healthcare (20 sources)CiprofloxacinDrug Ipmcwct48-86-4513JekpgMUYT Healthcare (20 sources)ClarithromycinAllergy to lixrctgha17-14-3813XY intoleranceNOMS Healthcare (20 sources)ClindamycinDrug Lokthzx01-75-0438Xfyukvc, HivesNOOH Healthcare (20 sources)DextromethorphanDrug Tykubgx35-57-4015GkvfiTMKY Healthcare (20 sources)Dextromethorphan / PyrilamineDrug Nlkvnuq98-81-1694RlbbgTCBO Healthcare (20 sources)Honey bee venomAllergy to mqfmyqcvt52-43-1373VxbwlvjAVUS Healthcare (20 sources)LevetiracetamPropensity to adverse uzmzgnbgi24-73-1479LnonjoiFSGN Healthcare (20 sources)PropranololDrug Vvugrtc55-70-5827Cwona, Other: See CommentsNOSaint Francis Medical Center (20 sources)vortioxetineDrug Yrpvxjn84-01-2951QvjwoAMXI Healthcare (20 sources)OtherAllergy to oqyiuezgw63-77-0635QatneCGGN Healthcare (20 sources)Wound Dressing AdhesiveDrug Sctrrnb31-62-7845CqoqADVK Healthcare (20 sources)Prochlorperazine; Translations: [PROCHLORPERAZINE]Drug Allergy 92-03-5025Ashispcajjj, AnxietyCleveland Clinic [facility] (20 sources)Adhesive agentPropensity to adverse reactions to jebb62-71-1981IcuwHospital for Special Surgery System (20 sources)DexamethasoneDrug Saqfezk95-89-5284FpcfoQrmGhhybr Health System (20 sources)MetoclopramideDrug Mrjwoqk07-16-8438CstkoauCaro Center System (20 sources)Bee Venom Protein (Honey Bee)Propensity to adverse reactions to drug 38-52-3756DzwvyfozsazUqdUxlmdy Health System (20 sources)eptinezumab; Translations: [EPTINEZUMAB-[facility]]Drug Xvkfqkg01-73-2926 Rash, ItchingCleveland Clinic [facility] (6 sources)Adhesive agentPropensity to adverse reactions to zpat06-47-2911NrzoFrye Regional Medical Center (1 source)AzithromycinDrug Btmuokk97-68-9310XghghwhxzHolzer Hospital Repository (1 source)CephalexinDrug Sxgdtqv89-62-9012BilniwmdnHolzer Hospital Repository (1 source)levETIRAcetamDrug Trwktdd92-68-1521VnmcgwcmaHolzer Hospital Repository (1 source)MetoclopramideDrug Jrzlhie29-58-4187VtphoufgxHolzer Hospital Repository (1 source)ProchlorperazineDrug Ylcmgle98-83-6790FnvlwpcsqHolzer Hospital Repository (5 sources)HaloperidolDrug Lxfukdn27-36-5685XvpqimtuiudlsbHdfCaeqrw Health System (4 sources)AmoxicillinDrug Hfxdony77-88-4553Thsyi, DiarrheaProMedica Health System (4 sources)Amoxicillin / ClavulanateDrug Okgzmcs23-16-4123Bjnpy, Diarrhea [facility] Medications Current Medications MedicationDrug Class(es)DatesSig (Normalized)Sig (Original)[id number] 200 actuat albuterol 0.09 mg/actuat metered dose inhaler (20 sources)beta2-Adrenergic AgonistStart: 62-26-6047ovgo 2 puff(s) by mouth every four hours as neededalbuterol (VENTOLIN HFA) 90 mcg/actuation inhaler Indications: Moderate persistent asthma, unspecified whether complicated INHALE TWO PUFFS BY MOUTH EVERY 4 HOURS NEEDED 18 g 12/19/2024 ActiveStart: 05-27-2024 End: 50-35-5423darl 2 puff(s) by mouth every four hours as neededalbuterol (VENTOLIN HFA) 90 mcg/actuation inhaler Indications: Moderate persistent asthma, unspecified whether complicated INHALE TWO PUFFS BY MOUTH EVERY 4 HOURS NEEDED 18 g 11 09/30/2024 ActiveStart: 55-36-5022yxjq 2 puff(s) by inhalation every four hoursalbuterol HFA 90 mcg/act inhaler Inhale 2 puffs every 4 (four) hours if needed 05/27/2024 ActiveStart: 74-90-8684ivsi 3 mL by inhalation four times daily as needed for wheezingalbuterol (PROVENTIL,VENTOLIN) 2.5 mg /3 mL (0.083 %) nebulizer solution Indications: Moderate asthma with acute exacerbation, unspecified whether persistent Inhale 3 mL (2.5 mg total) by nebulization 4 (four) times a day as needed for wheezing. 360 mL 10 03/20/2024 ActiveStart: 14-50-7888rgczwqduc (2.5 MG/3ML) 0.083% nebulizer solution Inhale 2.5 mg 4 (four) times a day as needed 03/20/2024 ActiveStart: 12-12-2023 End: 52-33-9344qnsl 2 puff(s) by inhalation every four hours for wheezing albuterol HFA 90 mcg/act inhaler Indications: Severe persistent asthma without complication (CMS/HCC) Inhale 2 puffs every 4 (four) hours if needed for wheezing or shortness of breath 8.5 g 3 12/12/2023 02/28/2024 DiscontinuedStart: 53-39-6023xzzx 2 puff(s) by inhalation every six hours as needed for wheezing albuterol sulfate 90 mcg/actuation breath activated powder inhaler Inhale 2 Puffs as instructed every 6 hours as needed for wheezing/shortness of breath. 08/16/2023 ActiveStart: 03-04-2023 End: 03-94-2025losnzxhfw (2.5 MG/3ML) 0.083% nebulizer solution Indications: Severe persistent asthma without complication (CMS/HCC) Take 3 mL (2.5 mg) by nebulization every 6 (six) hours if needed for wheezing 75 mL 1 03/04/2023 02/28/2024 DiscontinuedStart: 03-04-2023 End: 47-04-5465dveu 2 puff(s) by inhalation every four hours for wheezing albuterol HFA 90 mcg/act inhaler Indications: Severe persistent asthma without complication (CMS/HCC) Inhale 2 puffs every 4 (four) hours if needed for wheezing 8.5 g 3 11/06/2023 12/06/2023 ActiveStart: 06-07-2022 End: 16-94-4488gffm 2 puff(s) by mouth every four hours as neededalbuterol (VENTOLIN HFA) 90 mcg/actuation inhaler Indications: Moderate persistent asthma, unspecified whether complicated INHALE TWO PUFFS BY MOUTH EVERY 4 HOURS NEEDED 18 g 3 05/01/2024 05/24/2024 Discontinued (Reorder)Start: 06-07-2022 End: 61-07-8777ipip 0.63 mg by inhalation every six hours as needed for wheezing and dyspnea and dyspneaalbuterol (ACCUNEB) 0.63 mg/3 mL nebulizer solution Indications: SOB (shortness of breath) Inhale 3mL (0.63 mg total) by nebulization every 6 (six) hours as needed for wheezing. 75 mL 1 06/07/2022 Discontinuedamitriptyline hydrochloride 100 mg oral tablet (5 sources)Tricyclic AntidepressantStart: 24-83-2103decx 1 tablet by mouth at bedtimeamitriptyline (Elavil) 100 MG tablet Take 100 mg by mouth at bedtime 06/24/2024 Activeamoxicillin 500 mg oral capsule (1 source)Penicillin-class AntibacterialStart: 10-24-2024 End: 70-51-7283ktfo 1 capsule by mouth three times dailyamoxicillin (AMOXIL) 500 mg capsule Indications: Left otitis media, unspecified otitis media type Take 1 capsule (500 mg total) by mouth 3 (three) times a day for 7 days. 21 capsule 10/24/2024 10/31/2024 Activeamoxicillin 875 mg / clavulanate 125 mg oral tablet (6 sources)Penicillin-class AntibacterialStart: 05-21-2024 End: 86-75-1776adtm 1 tablet by mouth once in the morningamoxicillin-pot clavulanate (AUGMENTIN) 875-125 mg per tablet Indications: Moderate persistent asthma with acute exacerbation , Acute pansinusitis, recurrence not specified Take 1 tablet by mouth in the morning and 1 tablet before bedtime. Do all this for 10 days. 20 tablet 05/21/2024 05/31/2024 ActiveStart: 04-10-2024 End: 89-53-9516puag 1 tablet by mouth every eight hoursamoxicillin-pot clavulanate (AUGMENTIN) 875-125 mg per tablet Take 1 tablet by mouth every 8 (eight) hours for 7 days. 21 tablet 04/10/2024 04/17/2024 Activebaclofen 10 mg oral tablet (20 sources)gamma-Aminobutyric Acid-ergic AgonistStart: 04-25-2024 End: 83-97-1447lzwf 1 tablet by mouth once dailybaclofen (LIORESAL) 10 mg tablet Indications: Muscle spasm TAKE 1 TABLET BY MOUTH NIGHTLY 30 tablet3 10/02/2024 ActiveStart: 11-10-2023 End: 72-52-1529odem 1 tablet by mouth in the morning, [...] 90 tablet 2 11/10/2023 ActiveStart: 07-14-2023 End: 58-66-5708fnka 1 tablet by mouth in the morning, [...] 90 tablet 2 07/14/2023 ActiveStart: 11-22-2021 End: 13-97-2355ipsw 1 tablet by mouth three times daily at bedtimebaclofen (Lioresal) 10 MG tablet Indications: Pelvic pain in female TAKE 1 TABLET BY MOUTH THREE TIMES DAILY (IN THE MORNING, IN THE EVENING and BEFORE bedtime) 90 tablet 2 02/15/2024 02/28/2024 DiscontinuedComment on above:Take 10 mg by mouth three times a day as needed.benzonatate 200 mg oral capsule (16 sources)Non-narcotic AntitussiveStart: 12-12-2023 End: 68-85-3783ddke 1 capsule by mouth three times daily as needed for cough benzonatate (Tessalon) 200 MG capsule Indications: COVID-19 Take 1 capsule (200 mg) by mouth 3 (three) times a day as needed for cough Do not crush or chew. 30 capsule 1 01/24/2024 02/28/2024 Discontinuedonabotulinumtoxina 200 unt injection (20 sources)Acetylcholine Release InhibitorStart: 14-59-5161qytwjztjqxhl toxin type A 200 Units injection (BOTOX)budesonide 0.5 mg/ml inhalation suspension (2 sources)CorticosteroidStart: 15-59-4901kook 2 mL by inhalation in the morning budesonide (PULMICORT) 1 mg/2 mL nebulizer solution Indications: Moderate persistent asthma withoutcomplication Inhale 2 mL (1 mg total) by nebulization in the morning. 60 mL 6 12/17/2024 Lxieqr21 hr carBAMazepine 100 mg extended release oral tablet (7 sources)Mood StabilizerStart: 91-71-5597wzei 2 tablets by mouth in the morning, then take 2 tablets by mouth every twelve hours at bedtimecarBAMazepine XR (TEGretol XR) 100 mg 12 hr tablet Take 2 tablets (200 mg total) by mouth in the morning and 2 tablets (200 mg total) before bedtime. 120 tablet 11/25/2024 ActiveStart: 10-13-3718swia 1 tablet by mouth in the morning, then take 1 tablet by mouth every twelve hours at bedtimecarBAMazepine XR (TEGretol XR) 100 MG 12 hr tablet Take 100 mg by mouth in the morning and 100 mg before bedtime. 08/28/2024 Activecetirizine hydrochloride 10 mg oral tablet (20 sources)Histamine-1 Receptor AntagonistStart: 06-08-2022 End: 28-27-6675kqwz 1 tablet by mouth in the morningcetirizine (ZyrTEC) 10 mg tablet Take 1 tablet (10 mg total) by mouth in the morning. 30 tablet 06/08/2022 Activechlorzoxazone 500 mg oral tablet (20 sources)Muscle RelaxantStart: 07-10-2023 End: 06-39-3931zucx 1 tablet by mouth twice daily as needed for muscle spasms chlorzoxazone (Parafon Forte) 500 MG tablet Take 500 mg by mouth 2 (two) times a day as needed for muscle spasms 05/31/2024 ActiveStart: 10-12-2022 End: 21-36-3965bmxv 1 tablet by mouth three times daily [...] forrescue. 30 tablet 0 12/09/2022 Active End: 81-05-0002hcst 1 tablet by mouth four times daily as neededchlorzoxazone (PARAFON FORTE) 500 mg tablet Take 1 tablet (500 mg total) by mouth 4 (four) times a day as needed. 04/25/2024 DiscontinuedComment on above:Take 1 tablet by mouth up to three times a day as needed, immediately at onset of headache for rescue.clindamycin 300 mg oral capsule (2 sources)Lincosamide AntibacterialStart: 04-02-2024 End: 53-58-2927ebfi 1 capsule by mouth in the morning, [...] mg oral tablet (3 sources)CorticosteroidStart: 12-12-2023 End: 48-48-2347uuyc 1 tablet by mouth once dailydexAMETHasone (Decadron) 6 MG tablet Indications: COVID-19 Take 1 tablet (6 mg) by mouth Daily for 6 days 6 tablet 12/12/2023 01/09/2024 Discontinueddexamethasone 1 mg/ml / tobramycin 3 mg/ml ophthalmic suspension (11 sources)Aminoglycoside Antibacterial, CorticosteroidStart: 05-12-2023 End: 91-26-2598ufcp 1 drop(s) into the eye(s) every six hourstobramycin- dexAMETHasone (Tobradex) ophthalmic suspension instill 1 drop into both eyes every 6 hours for 7 days 05/12/2023 01/09/2024 DiscontinueddiazePAM 5 mg oral tablet (20 sources)BenzodiazepineStart: 03-28-2024 End: 07-29-6510mifwcQBP (VALIUM) tablet 5 mgStart: 11-23-2021 End: 27-21-8429bfpozEZX (VALIUM) 10 mg tablet 11/23/2021 Activetake 0.5 tablet by mouth at bedtimediazePAM (VALIUM) 10 mg tablet Take 0.5 tablets (5 mg total) by mouth in the morning and at bedtime. Active End: 77-86-8886idvtgHYX (Valium) 2 MG tablet Take by mouth every 8 (eight) hours if needed for anxiety. 01/09/2024iscontinuedtake 1 tablet by mouth every six hours as needed for anxietydiazePAM (VALIUM) 5 MG tablet Take 5 mg by mouth every 6 hours as needed for Anxiety. 0 Suspendeddoxycycline hyclate 100 mg oral tablet (6 sources)Tetracycline-class DrugStart: 01-23-2024 End: 30-86-6128aqvlaipkkch (Vibra-Tabs) 100 MG tablet Indications: Mild persistent asthma with (acute) exacerbation (CMS/HCC) Take 1 tablet (100 mg) by mouth in the morning and 1 tablet (100 mg) before bedtime. Do all this for 10 days. Take with a full glass of water and do not lie down for at least 30 minutes after.. 20 tablet 01/23/2024 02/09/2024 Efzcqxsnsndkfnh623761 0.3 ml EPINEPHrine 1 mg/ml auto-injector (20 sources)alpha-Adrenergic Agonist, beta-Adrenergic Agonist, Catecholamine Start: 12-26-4254ELDEWIYrasq (EPIPEN) 0.3 mg/0.3 mL auto-injector Indications: Allergic reaction, sequela 0.3 mL (0.3 mg total) by other route as needed (exposure to allergen). 2 each 1 08/26/2024 ActiveStart: 06-07-2022 End: 82-86-3417GJABBNBksyu (EPIPEN) 0.3 mg/0.3 mL auto-injector 0.3 mL (0.3 mg total) by other route as needed (exposure to allergen). 2 each 1 06/07/2022 04/25/2024 Discontinuedestradiol 1 mg oral tablet (20 sources)EstrogenStart: 05-15-2024 End: 01-43-2770xxwc 1 tablet by mouth in the morningestradioL (ESTRACE) 1 mg tablet Indications: Menopausal symptoms Take 1 tablet (1 mg total) by mouth in the morning. 30 tablet 3 05/15/2024 ActiveStart: 04-15-2024 End: 07-17-6233qjuiwszkX (VIVELLE-DOT) 0.05 mg/24 hr Indications: Menopausal symptoms Place 1 patch on the skin 2 (two) times a week. 8 patch 04/15/2024 04/25/2024 DiscontinuedStart: 04-11-2024 End: 92-42-0412srewzdaxC (VIVELLE-DOT) 0.0375 mg/[address] 1 patch [...] between applications chicho particular site.Start: 06-29-2023 End: 39-44-6225etle 1 tablet by mouth once daily in the morningestradiol (Estrace) 1 MG tablet Indications: Vaginal discharge , Pelvic pain in female take 1 tablet by mouth every morning 30 tablet 3 06/29/2023 02/28/2024 Discontinuedfluticasone propionate 0.05 mg/actuat metered dose nasal spray (20 sources)CorticosteroidStart: 12-00-7681acla 1 spray(s) nasal route every other dayfluticasone propionate (FLONASE) 50 mcg/actuation nasal spray Indications: Seasonal allergic rhinitis, unspecified trigger administer 1 spray IN EACH NOSTRIL EVERY OTHER DAY 16 g 2 06/10/2024 ActiveStart: 14-98-7508uvqt 1 spray(s) nasal route once dailyfluticasone (Flonase) 50 MCG/ACT nasal spray Administer 1 spray into each nostril Daily 06/10/2024 ActiveStart: 06-06-2024 End: 66-07-9432fjvb 1 spray(s) nasal route every other dayfluticasone propionate (FLONASE) 50 mcg/actuation nasal spray Indications: Seasonal allergic rhinitis, unspecified trigger Administer 1 spray into each nostril every other day. 18.2 mL 2 06/06/2024 06/10/2024 Oojzmbeqquhvsmpfbormbbn-ghmifziwj-wbxcqusk (TRELEGY ELLIPTA) 200-62.5-25 mcg blister with device (20 sources)Start: 03-20-2024 End: 64-21-0233fhzo 1 puff(s) by inhalation in the morning elimaqudtyi-fxerebqzp-ntdufewi (TRELEGY ELLIPTA) 200-62.5-25 mcg blister with device Indications: Moderate asthma with acute exacerbation, unspecified whether persistent Inhale 1 puff in the morning.60 each 03/20/2024 12/10/2024 DiscontinuedStart: 98-57-9905tyfj 1 puff(s) by inhalation in the morning jfvjvxpzwzn-szzaosbui-xyeghqcj (TRELEGY ELLIPTA) 200-62.5-25 mcg blister with device Indications: Moderate asthma with acute exacerbation, unspecified whether persistent Inhale 1 puff in the morning.60 each 03/20/2024Start: 03-20-2024 take 1 puff(s) by inhalation in the xlrpmpgqxicdwhazlb-evgzjpdre-zmbeyzad (TRELEGY ELLIPTA) 200-62.5-25 mcg blister with device Indications: Moderate asthma with acute exacerbation, unspecified whether persistent Inhale 1 puff in the morning.60 each 11 03/20/2024 Bxkqvlsnqtkxtnjze-sdkvjjcls-sowqhfqb (TRELEGY ELLIPTA) 200-62.5-25 mcg blister with device (5 sources)Start: 36-91-4710pmtw 1 puff(s) by mouth in the morning qwvoogfitzi-sxompaovo-ojrqqybh (TRELEGY ELLIPTA) 200-62.5-25 mcg blister with device Indications: Moderate asthma with acute exacerbation, unspecified whether persistent INHALE 1 PUFF BY MOUTH IN THEMORNING 60 each 12/10/2024 Itebkb93 actuat formoterol fumarate 0.005 mg/actuat / mometasone furoate 0.1 mg/actuat metered dose inhaler (20 sources)Corticosteroid, beta2-Adrenergic AgonistStart: 04-26-2023 End: 11-98-9740wpes 2 puff(s) by inhalation in the morningDulera 100-5 MCG/ACT inhaler Inhale 2 puffs in the morning and 2 puffs before bedtime. 04/26/2023 Discontinuedfurosemide 40 mg oral tablet (10 sources)Loop DiureticStart: 01-23-2024 End: 24-44-4110znvn 1 tablet by mouth once daily as needed for edemafurosemide (Lasix) 40 MG tablet Indications: Generalized edema Take 1 tablet (40 mg) by mouth Dailyas needed (Edema) 30 tablet 3 01/23/2024 02/28/2024 Ukiunnhikrry50 hr guaiFENesin 600 mg extended release oral tablet (9 sources)Start: 10-24-2024 End: 24-76-6421ktua 1 tablet by mouth onceguaiFENesin (MUCINEX) 600 mg tablet extended release 12hr Take 1 tablet (600 mg total) by mouth every 12 (twelve) hours for 10 days. 20 tablet 10/24/2024 11/03/2024 ActiveStart: 04-21-2022 End: 50-24-9682fzjs 1 tablet by mouth onceguaiFENesin (MUCINEX) 600 mg tablet extended release 12hr Take 1 tablet (600 mg total) by mouth every 12 (twelve) hours. 60 tablet 1 04/21/2022 03/25/2024 Discontinued (Therapy completed) Hydrocortisone (3 sources)CorticosteroidStart: 09-25-2023 End: 79-01-4092Wbklfhpethmmdc 2 % cream Indications: Rash Apply 1 application topically in the morning and 1 application before bedtime. 28 g 09/25/2023 10/25/2023 Activehydrocortisone 10 mg/ml / neomycin 3.5 mg/ml / polymyxin b 58857 unt/ml otic solution (1 source)Aminoglycoside Antibacterial, Polymyxin-class Antibacterial, CorticosteroidStart: 10-24-2024 End: 04-34-0759txvlvwry-polymyxin-HC (CORTISPORIN) otic solution Indications: Left otitis media, unspecified otitis media type Administer 3 drops into the left ear 3 (three) times a day for 7 days. 10 mL Active ibuprofen 800 mg oral tablet (20 sources)Nonsteroidal Anti-inflammatory DrugStart: 55-34-6570zdni 1 tablet by mouth every six hours as needed for painibuprofen 800 MG tablet Take 800 mg by mouth every 6 (six) hours if needed for moderate pain 04/15/2024 ActiveStart: 04-08-2024 End: 20-76-5344spmd 1 tablet by mouth every six hours as needed for swif737 mg, oral, Every 6 hours PRN, moderate pain - pain scale 4-6, Starting on Mon04/08/24 at 1825, Look-alike/sound-alike medication - verify indication for use. Take/Give with food or milk.Start: 02-10-2024 End: 86-54-0854tptv 1 tablet by mouth three times dailyibuprofen (MOTRIN) 800 mg tablet Indications: Post-op pain Take 1 tablet (800 mg total) by mouth 3 ( three) times a day. 21 tablet 04/15/2024 Activeketoconazole 20 mg/ml medicated shampoo (20 sources)Azole AntifungalStart: 54-84-3738ixxjoibvrwyd (NIZORAL) 2 % shampoo Apply 1 Application topically 2 (two) times a week. Apply to damp skin, lather, leave on 5 minutes, and rinse 120 mL 04/25/2024 ActiveStart: 11-26-2021 End: 07-76-6204knjriydgksyv (NIZORAL) 2 % shampoo APPLY TO AFFECTED AREA(S) LATHER AND LEAVE IN PLACE FOR 5 MINUTES AND THEN RINSE OFF WITH WATER. DO THIS 2 TIMES A WEEK FOR 4 WEEKS 120 mL 11/26/2021 04/25/2024 Uwapbzmeivpu745 actuat levalbuterol 0.045 mg/actuat metered dose inhaler (9 sources)beta2-Adrenergic AgonistStart: 84-74-4927efxj 1-2 puff(s) by inhalation every four hours as needed for wheezinglevalbuterol (XOPENEX HFA) 45 mcg/actuation inhaler Indications: Moderate persistent asthma without complication Inhale 1-2 puffs every 4 (four) hours as needed for wheezing. 15 g 11 12/20/2024 ActiveStart: 01-27-2022 End: 83-70-5420wige 1-2 puff(s) by inhalation every four hours as needed for wheezinglevalbuterol (XOPENEX HFA) 45 mcg/actuation inhaler Inhale 1-2 puffs every 4 (four) hours as neededfor wheezing. 15 g 1 01/27/2022 03/25/2024 Discontinued (Therapy completed)lidocaine 0.05 mg/mg topical ointment (20 sources)Antiarrhythmic, Amide Local AnestheticStart: 85-27-4940ncchzanvy (XYLOCAINE) 5 % ointment Indications: Post-operative pain Apply 1 Application topically as needed for pain. 35.44 g 04/24/2024 ActiveStart: 10-20-2021 lidocaine 4 % external patch 1 patchloperamide hydrochloride 2 mg oral capsule (1 source)Opioid AgonistStart: 04-52-8039zgcwxkzqhg (IMODIUM) capsule 2 mg loratadine 10 mg oral tablet (19 sources)Start: 84-06-9272ahqs 1 tablet by mouth once daily as needed loratadine (CLARITIN) 10 mg tablet Indications: Seasonal allergic rhinitis, unspecified trigger Take 1 tablet (10 mg total) by mouth daily as needed for allergies. 90 tablet 1 06/06/2024 Nunxvf36 hr loratadine 10 mg / pseudoephedrine sulfate 240 mg extended release oral tablet (6 sources)alpha-Adrenergic AgonistStart: 06-19-0287gbdl 1 tablet by mouth once in the morning, then take 1 tablet by mouth every twenty-four hoursloratadine- pseudoephedrine (CLARITIN-D 24-hour) 10-240 mg per 24 hr tablet Indications: Moderate persistent asthma without complication , Seasonal allergic rhinitis, unspecified trigger Take 1 tabletby mouth in the morning. 30 tablet 2 12/20/2024 ActiveStart: 05-21-2024 End: 20-27-7420zjll 1 tablet by mouth once in the morning, then take 1 tablet by mouth every twenty-four hoursloratadine-pseudoephedrine (CLARITIN-D 24-hour) 10-240 mg per 24 hr tablet Indications: Acute pansinusitis, recurrence not specified Take 1 tablet by mouth in the morning for 21 days. 21 tablet 202406/11/2024 ActiveLumateperone Tosylate (Caplyta) 10.5 MG capsule (11 sources) End: 11-55-9505jjcb 1 capsule by mouth in the morningLumateperone Tosylate (Caplyta) 10.5 MG capsule Take 10.5 mg by mouth in the morning. 01/09/2024 Dis continuedtake 1 capsule by mouth in the morningLumateperone Tosylate (Caplyta) 10.5 MG capsule Take 10.5 mg by mouth in the morning. Activemagnesium oxide 400 mg oral capsule (20 sources)Start: 87-45-1138kzuk 1 capsule by mouth once daily at bedtime magnesium oxide 400 mg magnesium cap Take 1 capsule by mouth daily at bedtime. 90 capsule 3 06/04/2024 ActiveStart: 07-10-2023 End: 33-97-0704pxne 1 capsule by mouth once daily at bedtimemagnesium oxide 400 mg magnesium cap Take 1 capsule by mouth daily at bedtime. 90 capsule 3 07/10/19 24 05/31/2024 DiscontinuedComment on above:magnesium 400 mg (as magnesium oxide) capsulemethocarbamol 500 mg oral tablet (3 sources)Muscle RelaxantStart: 09-12-2022 End: 58-41-4129ysks 1 tablet by mouth twice dailymethocarbamol (ROBAXIN) 500 mg tablet Take 1 tablet by mouth twice daily. 60 tablet 2 09/12/2022 10/12/2022 Discontinued (Lack of Efficacy)Comment on above:Take 1 tablet by mouth twice daily.metroNIDAZOLE 500 mg oral tablet (3 sources)Nitroimidazole AntimicrobialStart: 07-01-2024 End: 97-74-0203itte 1 tablet by mouth in the morningmetroNIDAZOLE (Flagyl) 500 MG tablet Indications: BV (bacterial vaginosis) Take 1 tablet (500 mg) by mouth in the morning and 1 tablet (500 mg) before bedtime. Do all this for 7 days. Do not drink alcohol while taking this medication. 14 tablet 07/01/2024 07/08/2024 ActiveStart: 04-08-2024 End: 18-84-8574611 mg, intravenous, at 100 mL/hr, Administer over 60 Minutes, Once, On Mon04/08/24 at 1450, For 1 dose, Look-alike/sound-alike medication - verify indication for use., Indication: Intra-abdominalmineral oil 0.03 mg/mg / petrolatum 0.94 mg/mg ophthalmic ointment (1 source)Start: 42-38-8034kuwmb petrolatum-mineral oiL (SYSTANE NIGHTTIME) 94-3 % ointment Indications: Watery eyes Administer 1 Application (0.25 inches total) to both eyes nightly. 3.5 g 1 12/20/2024 Activemupirocin 0.02 mg/mg topical ointment (13 sources)RNA Synthetase Inhibitor AntibacterialStart: 39-27-9665luwcoxchv (BACTROBAN) 2 % ointment Indications: Eye infection, bilateral Apply 1 Application topically in the morning and 1 Application before bedtime. 22 g 1 07/24/2024 ActiveStart: 05-02-2024 End: 69-17-5267yxvdgiwyt (BACTROBAN) 2 % ointment Indications: Postoperative infection, unspecified type, subsequent encounter Apply 1 Application topically in the morning and 1 Application before bedtime. Do all this for 7 days. 30 g 05/02/2024 05/02/2024 Discontinued (Reorder)Nirmatrelvir&Ritonavir 300/100 (Paxlovid, 300/100,) 20 x 150 MG & 10 x 100MG tablet therapypack (3 sources)Start: 12-12-2023 End: 16-80-6434Strzsysnssip&Ritonavir 300/100 (Paxlovid, 300/100,) 20 x 150 MG & 10 x 100MG tablet therapypack Indications: COVID-19 Take 1 each by mouth See administration instructions 1 each 12/12/2023 01/09/2024 DiscontinuedStart: 60-29-8638Vsmzfqleogbv&Ritonavir 300/100 (Paxlovid, 300/100,) 20 x 150 MG & 10 x 100MG tablet therapypack Indications: COVID-19 Take 1 each by mouth See administration instructions 1 each 12/12/2023 Activeomeprazole 40 mg delayed release oral capsule (20 sources)Proton Pump InhibitorStart: 03-20-2024 End: 33-23-1624smiu 1 capsule by mouth at bedtimeomeprazole (PriLOSEC) 40 mg capsule Indications: Gastroesophageal reflux disease without esophagitis Take 1 capsule (40 mg total) by mouth in the morning and at bedtime. 60 capsule 3 12/17/2024 ActiveStart: 01-27-2022 End: 90-63-0173trps 1 capsule by mouth in the morningomeprazole (PriLOSEC) 20 mg capsule Take 1 capsule (20 mg total) by mouth in the morning. 30 capsule 1 01/27/2022 04/08/2024 Discontinued (Therapy completed)ondansetron (ZOFRAN-ODT) disintegrating tablet 4 mg (1 source)Start: 68-36-7643nojfmlocwzu (ZOFRAN-ODT) disintegrating tablet 4 mg12 hr orphenadrine citrate 100 mg extended release oral tablet (20 sources)Muscle RelaxantStart: 03-17-2023 End: 47-47-5452oern 1 tablet by mouth twice daily as needed, then take 1 tablet by mouth every twelve hours as neededorphenadrine (Norflex) 100 MG 12 hr tablet Take 100 mg by mouth 2 (two) times a day as needed 04/26/2023 02/28/2024 DiscontinuedStart: 78-02-8288eiov 1 tablet by mouth every twelve hours as needed orphenadrine ER (NORFLEX) 100 mg tablet Take 1 tablet by mouth two times a day as needed. 30 tablet5 12/12/2022 ActiveComment on above:Take 1 tablet by mouth two times a day as needed.oxyCODONE hydrochloride 5 mg oral tablet (20 sources)Opioid AgonistStart: 04-29-2024 End: 62-39-7313brmg 1 tablet by mouth every six hours [...] 12 tablet 04/29/2024 05/02/2024 ActiveStart: 03-28-2024 End: 46-40-5228tocj 1 tablet by mouth every four hours [...] glycol 3 mg/ml ophthalmic solution (2 sources)Start: 98-14-7798zdw 400-propylene glycol, PF, (SYSTANE ULTRA, PF,) 0.4-0.3 % dropperette Indications: Watery eyes Administer 1 drop to both eyes 3 (three) times a day. 30 each 1 12/20/2024 ActiveStart: 12-20-2024 End: 49-08-0612qmz 400-propylene glycol, PF, (SYSTANE ULTRA, PF,) 0.4-0.3 % dropperette Indications: Watery eyes Administer 1 drop to both eyes as needed (for watery eyes and burning). 30 each 1 12/20/2024 12/20/2024 Discontinued polymyxin b 98999 unt/ml / trimethoprim 1 mg/ml ophthalmic solution (3 sources)Dihydrofolate Reductase Inhibitor Antibacterial, Polymyxin-class AntibacterialStart: 63-28-8039jidgtczxanzv-polymyxin b (Polytrim) ophthalmic solution 07/24/2024 ActiveStart: 07-24-2024 End: 32-21-1864hajphczgppuz-polymyxin B (POLYTRIM) 10,000 unit- 1 mg/mL drops Indications: Eye infection, bilateral Administer 1 drop to both eyes in the morning and 1 drop at noon and 1 drop in the evening and 1 drop before bedtime. Do all this for 5 days. 10 mL 07/24/2024 07/29/2024 Activemicroencapsulated potassium chloride 20 meq extended release oral tablet (2 sources)Start: 03-26-2024 End: 45-60-3577sbzp 1 tablet by mouth in the morningpotassium chloride (KLOR-CON M 20) 20 MEQ CR tablet Take 1 tablet (20 mEq total) by mouth in the morning for 2 days. 2 tablet 03/26/2024 03/28/2024 ActivepredniSONE 10 mg oral tablet (18 sources)Start: 52-85-3955ohnjisUICQ (DELTASONE) 10 mg tablet Indications: Moderate persistent asthma without complication Take 3 tablets once daily for 3 days, then 2 tablets once daily for 3 days then 1 tablet daily 19 tablet 12/20/2024 ActiveStart: 10-24-2024 End: 70-02-8226vibv 2 tablets by mouth in the morningpredniSONE (DELTASONE) 20 mg tablet Indications: Mild asthma with exacerbation, unspecified whether persistent Take 2 tablets (40 mg total) by mouth in the morning for 5 days. 10 tablet 10/24/2024 10/29/2024 ActiveStart: 05-21-2024 End: 59-23-9236qpva 1 tablet by mouth in the morningpredniSONE (DELTASONE) 20 mg tablet Indications: Moderate persistent asthma with acute exacerbationTake 1 tablet (20 mg total) by mouth in the morning for 5 days. 5 tablet 05/21/2024 05/26/2024 ActiveStart: 01-23-2024 End: 31-28-8138mepy 1 tablet by mouth once dailypredniSONE (Deltasone) 50 MG tablet Indications: Mild persistent asthma with (acute) exacerbation (CMS/HCC) Take 1 tablet (50 mg) by mouth Daily for 6 days 6 tablet 01/23/2024 01/29/2024 ActiveStart: 40-91-0433hxfd 6 tablets by mouth once daily, then [...] x 3 days 39 tablet 11/15/2023 ActiveStart: 95-21-5074gerp 6 tablets by mouth once daily, then [...] days 39 tablet 11/15/2023 ActiveStart: 10-10-2023 End: 56-13-9786nzzo 6 tablets by mouth once daily, then [...] mg oral capsule (2 sources)ProgesteroneStart: 09-03-2024 End: 60-17-9093lziy 1 capsule by mouth once dailyprogesterone (Prometrium) 100 MG capsule Indications: Hot flashes due to surgical menopause Take 1 capsule (100 mg) by mouth Daily 30 capsule 11 09/03/2024 09/03/2025 Activepromethazine hydrochloride 25 mg oral tablet (20 sources)PhenothiazineStart: 06-04-2024 End: 63-34-7761gyqt 1 tablet by mouth every four hours as needed for nausea promethazine (PHENERGAN) 25 mg tablet Indications: Intractable chronic migraine without aura and without status migrainosus Take 1 tablet by mouth every 4 hours as needed. FOR NAUSEA 90 tablet 5 06/04/2024 ActiveStart: 08-18-2023 End: 96-64-7141eanj 1 tablet by mouth every four hours as needed for nausea promethazine (PHENERGAN) 25 mg tablet Indications: Intractable chronic migraine without aura and without status migrainosus Take 1 tablet by mouth every 4 hours as needed. FOR NAUSEA 90 tablet 5 11/10/2023 05/31/2024 DiscontinuedStart: 05-13-2023 End: 28-66-0158mfor 1 tablet by mouth every six hours as needed for nausea and vomitingpromethazine (PHENERGAN) 25 mg tablet Take 1 tablet (25 mg total) by mouth every 6 (six) hours as needed for nausea or vomiting. 15 tablet 08/10/2023 04/25/2024 DiscontinuedStart: 03-17-2023 End: 25-53-5777zngl 1 tablet by mouth every six hours as neededpromethazine (Phenergan) 12.5 MG tablet Take 12.5 mg by mouth every 6 (six) hours if needed 04/02/2023 02/28/2024 DiscontinuedStart: 06-22-2022 End: 66-68-4087iley 1 tablet by mouth every six hours as neededpromethazine (PHENERGAN) 12.5 mg tablet Take 1 tablet by mouth every 6 hours as needed. 90 tablet Active End: 34-29-3373fbhm 25 mg rectal route every six hours as needed for nausea and vomitingpromethazine (Phenergan) 25 MG suppository Insert 25 mg into the rectum every 6 (six) hours if needed for nausea or vomiting ActiveComment on above:Take 12.5 mg by mouth every 6 hours as needed.Take 1 tablet by mouth every 6 hours as needed.72 hr scopolamine 0.0139 mg/hr transdermal system (20 sources)AnticholinergicStart: 50-47-7603znvgerwpuhe (TRANSDERM-SCOP) patch 1.5 mg/72 hr (delivers 1 mg over 3 days) Indications: Intractable chronic migraine without aura and with status migrainosus , Nausea Apply 1 Patch as directed every72 hours. APPLY 1 DISC BEHIND THE EAR AT LEAST 4 HOURS PRIOR TO EXPOSURE AND EVERY 3 DAYS NEEDED. 4 Patch 2 05/10/2024 ActiveStart: 03-18-2024 End: 24-17-6689alnci 1 dose transdermal route once dailyscopolamine (TRANSDERM- SCOP) 1 mg/[address] 1 patch on the skin every third day. 05/10/2024 Active scopolamine (Transderm-Scop) 1 mg/72 hr patch [address] 1 patch on the skin every 3rd (third) day Activeterconazole 4 mg/ml vaginal cream (1 source)Azole AntifungalStart: 01-15-2024 End: 90-59-1583jtiupjaeqwc (Terazol 7) 0.4 % vaginal cream Indications: Yeast infection Insert 1 applicator into the vagina at bedtime for 7 days 45 g 01/15/2024 01/22/2024 Vljpeo77 actuat tiotropium 0.70340 mg/actuat inhalation spray (20 sources)AnticholinergicStart: 04-26-2023 End: 28-75-1137Wbkrmpc Respimat 1.25 MCG/ACT inhaler inhale 2 puffs by mouth once daily 04/26/2023 02/28/2024 DiscontinuedtraMADol hydrochloride 50 mg oral tablet (8 sources)Opioid AgonistStart: 01-09-2024 End: 31-51-9700zmpy 1 tablet by mouth four times daily as needed for pain traMADol (Ultram) 50 MG tablet Indications: Pain, dental Take 1 tablet (50 mg) by mouth 4 (four) times a day as needed for severe pain for up to 7 days 28 tablet 01/22/2024 01/29/2024 Activeubrogepant 100 mg oral tablet (20 sources)Start: 05-03-2024 End: 44-96-6928pgoiffuxac (UBRELVY) 100 mg tablet 05/03/2024 Activezavegepant (ZAVZPRET) 10 mg/actuation nasal spray (6 sources)Start: 89-50-2753cqcibwlfjx (ZAVZPRET) 10 mg/actuation nasal spray Indications: Intractable chronic migraine withoutaura and with status migrainosus Use one nasal spray at migraine onset. May use once per 24 hours. 6 each 08/08/2024 8:59 AM EDT 08/02/2024 ActiveStart: 07-30-9797bzvtbvmzig (ZAVZPRET) 10 mg/actuation nasal spray Indications: Intractable chronic migraine withoutaura and with status migrainosus Use one nasal spray at migraine onset. May use once per 24 hours. 6 each 08/02/2024 ActiveZOLMitriptan 5 mg/actuat nasal spray (20 sources)Serotonin-1b and Serotonin-1d Receptor AgonistStart: 06-04-2024 ZOLMitriptan (ZOMIG) 5 mg nasal spray Use 1 [place] in the nose as needed at onset of migraine headache. If symptoms persist or return, may repeat dose in other nostril after 2 hours. Maximum of 2 sprays per 24 hours 12 each 06/04/2024 ActiveStart: 03-17-2023 End: 91-42-3667TBAGvzyyajgz (ZOMIG) 5 mg nasal spray Use 1 [place] in the nose as needed at onset of migraine headache. If symptoms persist or return, may repeat dose in other nostril after 2 hours. Maximum of 2 sprays per 24 hours 12 Each 5 01/30/2024 05/31/2024 DiscontinuedStart: 17-96-1173EPCGgvtuvang (ZOMIG) 5 mg nasal spray Use 1 [place] in the nose as needed at onset of migraine headache. If symptoms persist or return, may repeat dose in other nostril after 2 hours. Maximum of 2 sprays per 24 hours 10 Each 2 06/24/2022 ActiveStart: 06-24-2022 take 1 spray(s) nasal route every twenty-four hours as neededZOLMitriptan (ZOMIG) 5 mg nasal spray Use 1 [place] in the nose as needed. SPRAY IN 1 NOSTRIL AT ONSET OF MIGRAINE HEADACHE. If symptoms persist or return, may repeat dose after 2 hours. Maximum: 5 mg/dose; 10 mg per 24 hours 10 Each 2 06/24/2022 ActiveComment on above:Use 1 [place] in the nose as needed. SPRAY IN 1 NOSTRIL AT ONSET OF MIGRAINE HEADACHE. If symptoms persist or return, may repeat dose after 2 hours. Maximum: 5 mg/dose; 10 mg per 24 hoursUse 1 [place] in the nose as needed at onset of migraine headache. If symptoms persist or return, mayrepeat dose in other nostril after 2 hours. Maximum of 2 sprays per 24 hours Completed/Discontinued Medications MedicationDrug Class(es)DatesSig (Normalized)Sig (Original)acetaminophen 500 mg oral tablet (20 sources)Start: 04-08-2024 End: 74-88-8709qfqe 1 tablet by mouth every six hours as needed for pain1,000 mg, oral, Every 6 hours PRN, mild pain - pain scale 1-3, Starting on Mon04/08/24 at 1825Start: 27-07-7879mneh 2 tablets by mouth every six hours as needed for painacetaminophen (TYLENOL EXTRA STRENGTH) 500 mg tablet Take 2 tablets (1,000 mg total) by mouth every6 (six) hours as needed for pain. 30 tablet 2 03/28/2024 ActiveStart: 08-93-2569nfyh 1 tablet by mouth every six hours as needed Acetaminophen Extra Strength 500 MG tablet Take 500 mg by mouth every 6 (six) hours if needed (pain) 03/28/2024 ActiveStart: 47-70-1112hboybrsxdtffn (TYLENOL) tablet 1,000 mgStart: 10-19-2021 End: 10-24-2065digibsetswkiz (TYLENOL) tablet 650 mgacetaminophen 300 mg / codeine phosphate 30 mg oral tablet (3 sources)Opioid AgonistStart: 04-04-2024 End: 21-46-2124glhk 1 tablet by mouth every six hours as neededacetaminophen- codeine (TYLENOL #3) 300-30 mg per tablet Take 1 tablet by mouth every 6 (six) hours as needed. 04/04/2024 04/15/2024 Discontinued (Alternate therapy) ARIPiprazole 10 mg oral tablet (8 sources)Atypical Antipsychotic End: 53-71-2668rwns 1 tablet by mouth in the morningARIPiprazole [...] mg oral tablet (2 sources)Muscle Relaxant End: 22-34-9142tire 1 tablet by mouth three times dailycyclobenzaprine [...] medication -verify indication for use.Start: 04-08-2024 End: 63-49-701516 mg, intravenous, Once, On Mon04/08/24 at 1450, For 1 dose, Look-alike/sound-alike medication - verify indication for use.Start: 01-22-2024 End: 09-38-148894 mg, INTRAVENOUS, NEEDED, 2 doses, Starting on Mon01/22/24 at 1328, Until Mon01/22/24 at 1429,Sedation/Dystonia/Akathisia/Anxiety 3rd line Start: 01-19-2024 End: 15-33-290895 mg, INTRAVENOUS, NEEDED, 2 doses, Starting on Mon01/19/24 at 0909, Until Mon01/19/24 at 1012, Sedation/Dystonia/Akathisia/Anxiety 3rd lineStart: 01-17-2024 End: 00-68-354019 mg, INTRAVENOUS, NEEDED, 2 doses, Starting on Mon01/17/24 at 0815, Until Mon01/17/24 at 0935, Sedation/Dystonia/Akathisia/Anxiety 3rd lineStart: 01-05-2024 End: 47-17-731854 mg, INTRAVENOUS, NEEDED, 1 dose, Starting on Mon01/05/24 at 1327, Until Mon01/05/24 at 1330, Administer per hypersensitivity/anaphylaxis grading in nursing communicationStart: 01-05-2024 End: 26-49-685304 mg, INTRAVENOUS, NEEDED, 2 doses, Starting on Mon01/05/24 at 1235, Until Mon01/05/24 at 1559, Sedation/Dystonia/Akathisia/Anxiety 3rd lineStart: 10-13-2023 End: 01-10-898101 mg, INTRAVENOUS, NEEDED, 1 dose, Starting on Mon10/13/23 at 1308, Until Mon10/13/23 at 1310, Administer per hypersensitivity/anaphylaxis grading in nursing communicationStart: 12-24-2020 End: 93-85-6549yedxvczvypAPZZL (BENADRYL) injection 50 mgdocusate sodium 50 mg / sennosides, alf 8.6 mg oral tablet (11 sources)Start: 03-28-2024 End: 08-62-1413vfui 1 tablet by mouth at bedtimesennosides-docusate sodium (SENNA WITH DOCUSATE SODIUM) 8.6-50 mg Take 1 tablet by mouth in the morning and at bedtime. 30 tablet 1 03/28/2024 04/25/2024 Discontinued0.4 ml enoxaparin sodium 100 mg/ml prefilled syringe (1 source)Low Molecular Weight HeparinStart: 64-24-9829klzyxt 40 mg by subcutaneous injection once daily40 [...] 100 mL (VYEPTI) (4 sources)Start: 08-01-2024 End: 46-00-7599242 mg, INTRAVENOUS, at 200 mL/hr, Administer over 30 Minutes, ONCE, 1 dose, On Mon08/01/24 at 1100, EXP: Administer with 0.2 micron filter.Start: 05-02-2024 End: 59-35-1456593 mg, INTRAVENOUS, at 200 mL/hr, Administer over [...] 140 mg/ml auto-injector (20 sources)Start: 07-10-2023 End: 49-68-1077lqtwux 1 mL by subcutaneous injection every montherenumab-aooe (AIMOVIG AUTOINJECTOR) 140 mg/mL auto-injector Inject 1 mL subcutaneously once every month. Do not shake. 1 Each 07/10/2023 09/19/2023 DiscontinuedStart: 03-23-2023 End: 55-41-6173djrpfh 1 mL by subcutaneous injection every montherenumab-aooe (AIMOVIG AUTOINJECTOR) 70 mg/mL auto-injector Inject 1 mL subcutaneously once every month. Do not shake. 1 Each 07/10/2023 07/10/2023 DiscontinuedComment on above:Inject 1 mL subcutaneously once every month. Do not shake.2 ml famotidine 10 mg/ml injection (1 source)Histamine-2 Receptor AntagonistStart: 08-01-2024 End: 00-01-029756 mg, INTRAVENOUS, NEEDED, 1 dose, Starting on Meg 08/01/24 at 1056, Until Meg 08/01/24 at 1146, Heartburn, REFRIGERATEfluconazole 150 mg oral tablet (6 sources)Azole AntifungalStart: 07-01-2024 End: 54-20-8536omuu 1 tablet by mouth once, then take 1 tablet by mouth once fluconazole (Diflucan) 150 MG tablet Indications: Yeast infection Take 1 tablet (150 mg) by mouth 1(one) time for 1 dose This is a 1 time dose, take single tablet by mouth. 1 tablet 1 07/01/2024 07/01/2024 ExpiredStart: 05-21-2024 End: 17-98-9923uktw 1 tablet by mouth oncefluconazole (DIFLUCAN) 150 mg tablet Indications: Antibiotic-induced yeast infection Take 1 tablet (150 mg total) by mouth once for 1 dose. 1 tablet 05/21/2024 05/21/2024 ActiveStart: 04-02-2024 End: 25-95-9558qfae 1 tablet by mouth once, then take 1 tablet by mouth once fluconazole (Diflucan) 150 MG tablet Indications: Yeast infection Take 1 tablet (150 mg) by mouth 1(one) time for 1 dose This is a 1 time dose, take single tablet by mouth. 1 tablet 1 04/02/2024 04/02/2024 ExpiredStart: 01-24-2024 End: 80-40-4741rcnh 1 tablet by mouth oncefluconazole (Diflucan) 150 MG tablet Indications: Rash , Yeast dermatitis Take 1 tablet (150 mg) bymouth every 3rd (third) day for 2 doses 2 tablet 01/24/2024 01/28/2024 ActiveFLUoxetine 20 mg oral capsule (2 sources)Serotonin Reuptake Inhibitor End: 81-05-0967jgck 3 capsules by mouth once dailyFLUoxetine (PROZAC) 20 MG capsule Take 60 mg by mouth daily 0 10/20/2021 Discontinued (Stop Taking at Discharge)30 actuat fluticasone furoate 0.1 mg/actuat / umeclidinium 0.0625 mg/actuat / vilanterol 0.025 mg/actuat dry powder inhaler (5 sources)Anticholinergic, Corticosteroid, beta2-Adrenergic Agonist End: 60-59-6376btksesylsjb-umeclidin-vilanter (TRELEGY ELLIPTA) 100-62.5-25 mcg blister with device daily. 03/20/2024 Discontinued1.5 ml fremanezumab-vfrm 150 mg/ml auto-injector (12 sources)Start: 11-25-2020 End: 53-40-8099vhptbwsszuht-vfrm 225 mg/1.5 mL auto-injector Indications: Chronic mixed headache syndrome Inject 225 mg under the skin every 28 days. 1.5 mL 4 11/25/2020 03/25/2024 Discontinued (Therapy completed)Comment on above: Ajovy 225 mg/1.5 mL subcutaneous auto-injectorgabapentin 600 mg oral tablet (6 sources)Anti-epileptic AgentStart: 40-30-1517nuwwxrsdsm (NEURONTIN) 600 mg tablet End: 41-76-6051dsqcqpmhpa (NEURONTIN) 600 MG tablet Take 300 mg by mouth 3 times daily. 0 10/20/2021 Discontinued (Stop Taking at Discharge)take 1 tablet by mouth once dailygabapentin (NEURONTIN) 600 MG tablet Take 600 mg by mouth nightly. 0 Activegadoteridol (PROHANCE) injection 20 mL (1 source)Start: 10-19-2021 End: 31-95-9348gaciyjciiby (PROHANCE) injection 20 mL1 ml galcanezumab-gnlm 120 mg/ml auto-injector (20 sources)Start: 09-27-2022 End: 75-00-2370kwgpqq 1 mL by subcutaneous injection every monthgalcanezumab- gnlm (EMGALITY PEN) 120 mg/mL pen Inject 1 mL subcutaneously once every month. Do not shake. 1 Each 11 09/27/2022 11/10/2022 Discontinued (Course of therapy completed)Start: 09-27-2022 End: 78-28-7716ixiedb 2 doses by subcutaneous injection every monthgalcanezumab- gnlm 120 mg/mL subcutaneous pen injector (EMGALITY) Inject 2 Pens subcutaneously one time only for 1 dose. For first month only. Refrigerate. Do not shake. 2 Each 0 09/27/2022 3Discontinued (Course of therapy completed)Start: 35-03-3117hjvukx 1 mL by subcutaneous injection every monthgalcanezumab-gnlm (EMGALITY PEN) 120 mg/mL pen Inject 1 mL subcutaneously once every month. Do not shake. 1 Each 2 06/24/2022 ActiveStart: 68-29-7836tdiikm 2 doses by subcutaneous injection every monthgalcanezumab-gnlm [...] prefilled syringe (4 sources)Opioid AgonistStart: 04-08-2024 End: 74-15-4301dyvg 1 mg intravenously every four hours as needed for pain1 mg, intravenous, Every 4 hours PRN, severe pain - pain scale 7-10, Starting on Mon04/08/24 at 1941, If IV push, administer over over 2 to 3 minutes. Look-alike/sound-alike medication - verify indication for use.Start: 04-08-2024 End: 99-46-5777azog 0.5 mg intravenously once0.5 mg, intravenous, Once, [...] iodine/mL 100 mL (1 source)Start: 04-08-2024 End: 52-78-5739801 mL, intravenous, Once in imaging, contrast, Starting on Mon04/08/24 at 1521, For 1 dose, VESICANT (RED)iohexoL (OMNIPAQUE) 300 mg iodine/mL 30 mL (1 source)Start: 04-08-2024 End: 06-87-5345zxuc 30 mL by mouth once30 mL, oral, [...] of therapy for ketorolac (Toradol).Start: 08-01-2024 End: 17-21-160108 mg, INTRAVENOUS, ONCE, 1 dose, On Meg 08/01/24 at 1130, Ketorolac (Toradol) is indicated for the short-term (up to 5 days) management of moderately severe acute pain. Continuation of ketorolac (Toradol) beyond 5 days increases the risk of developing serious adverse events. Please verify the duration of therapy for ketorolac (Toradol)Start: 61-64-1141vqre 1 tablet by mouth every eight hours as needed for painketorolac (Toradol) 10 MG tablet Take 10 mg by mouth every 8 (eight) hours if needed for mild pain 06/22/2024 Active Start: 58-75-9266xcyx 1 tablet by mouth every six hours as neededkeTORolac (TORADOL) 10 mg tablet Take 1 tablet by mouth every 6 hours as needed (severe migraine). 20 tablet 5 06/04/2024 ActiveStart: 05-02-2024 End: 18-70-048303 mg, INTRAVENOUS, ONCE, 1 dose, On Mon05/02/24 at 1200, Ketorolac (Toradol) is indicated for the short-term (up to 5 days) management of moderately severe acute pain. Continuation of ketorolac (Toradol) beyond 5 days increases the risk of developing serious adverse events. Please verify the duration of therapy for ketorolac (Toradol).Start: 05-02-2024 End: 39-51-9969fmKAGaimt 30 mg injection (Toradol)Start: 04-09-2024 End: 64-65-166524 mg, intramuscular, Once, On Mon04/09/24 at 1100, For 1 dose, Look-alike/sound-alike medication -verify indication for use. Duration of therapy is not to exceed 5 days. Maximum recommended dose + 120mg/24 hours. Start: 01-22-2024 End: 15-26-559368 mg, INTRAVENOUS, ONCE, 1 dose, On 01/22/24 at 1330, Ketorolac (Toradol) is indicated for the short-term (up to 5 days) management of moderately severe acute pain. Continuation of ketorolac (Toradol) beyond 5 days increases the risk of developing serious adverse events. Please verify the duration of therapy for ketorolac (Toradol).Start: 01-19-2024 End: 27-61-513058 mg, INTRAVENOUS, ONCE, 1 dose, On Mon01/19/24 at 0930, Ketorolac (Toradol) is indicated for theshort-term (up to 5 days) management of moderately severe acute pain. Continuation of ketorolac (Toradol) beyond 5 days increases the risk of developing serious adverse events. Please verify the durat ion of therapy for ketorolac (Toradol).Start: 01-17-2024 End: 91-13-937260 mg, INTRAVENOUS, ONCE, 1 dose, On Mon01/17/24 at 0830, Ketorolac (Toradol) is indicated for theshort-term (up to 5 days) management of moderately severe acute pain. Continuation of ketorolac (Toradol) beyond 5 days increases the risk of developing serious adverse events. Please verify the durat ion of therapy for ketorolac (Toradol).Start: 01-05-2024 End: 98-70-381942 mg, INTRAVENOUS, ONCE, 1 dose, On Mon01/05/24 at 1330, Ketorolac (Toradol) is indicated for theshort-term (up to 5 days) management of moderately severe acute pain. Continuation of ketorolac (Toradol) beyond 5 days increases the risk of developing serious adverse events. Please verify the durat ion of therapy for ketorolac (Toradol)Start: 01-05-2024 End: 61-96-7591kzIHEeoxd 30 mg injection (Toradol)Start: 10-13-2023 End: 57-89-815251 mg, INTRAVENOUS, ONCE, 1 dose, On Mon10/13/23 [...] the opioid, if preferred: YesStart: 10-13-2023 End: 45-68-5877rbCAIxvmw 30 mg injection (Toradol)Start: 05-14-2023 End: 29-80-2622adfr 1 tablet by mouth every eight hours as neededketorolac (Toradol) 10 MG tablet Take 1 tablet by mouth every 8 (eight) hours if needed 05/14/2023 02/28/2024 DiscontinuedStart: 05-08-2022 End: 10-26-2003gplj 1 tablet by mouth every six hours as neededkeTORolac (TORADOL) 10 mg tablet Take 1 tablet by mouth every 6 hours as needed (severe migraine). 20 tablet 5 11/10/2023 05/31/2024 DiscontinuedStart: 12-24-2020 End: 45-92-5283gtmectgiy (TORADOL) injection 15 mgComment on above:Take 1 tablet by mouth every 6 hours as needed (severe migraine).Take 10 mg by mouth. lamoTRIgine 200 mg oral tablet (20 sources)Mood Stabilizer, Anti-epileptic AgentStart: 01-29-2024 End: 07-72-2275nqag 1 tablet by mouth in the morning, then take 1 tablet by mouth at bedtimelamoTRIgine (LaMICtal) 200 mg tablet Take 1 tablet (200 mg total) by mouth in the morning and 1 tablet (200 mg total) before bedtime. 01/29/2024 10/24/2024 Discontinued (Therapy completed)Start: 05-18-2023 End: 41-12-4073rsyq 1 tablet by mouth at bedtimelamoTRIgine (LaMICtal) 200 MG tablet Take 1 tablet by mouth at bedtime 05/18/2023 01/09/2024 Discontinued Start: 02-23-2022 End: 59-27-9045retqGDKzcau (LaMICtal) 150 mg tablet 100mg in am 150mg at HS 02/23/2022 03/25/2024 Discontinued (Dose adjustment)Start: 11-23-2021 End: 95-45-1098zgxkUUEhjwp (LAMICTAL) 150 mg tablet 11/23/2021 ActiveStart: 77-26-2429gpfx 2 tablets by mouth once dailylamoTRIgine (LAMICTAL) 25 MG tablet Take 2 tablets by mouth daily 30 tablet 3 10/21/2021 ActiveStart: 10-19-2021 lamoTRIgine (LAMICTAL) tablet 50 mg End: 13-75-4607putsWYAxhhb (LaMICtal) 50 MG tablet,disintegrating disintegrating tablet Dissolve 2 tablets (100 mgtotal) on tongue in the morning. 03/25/2024 Discontinued (Dose adjustment)levETIRAcetam 250 mg oral tablet (3 sources)Start: 88-60-7081esrZQBQWxikvd (KEPPRA) 250 mg tablet Take 1 at bedtime. Can increase to bid after 2 weeks if tablet 2 08/08/2022 ActiveComment on above:Take 1 at bedtime. Can increase to bid after 2 weeks if neededlithium carbonate 300 mg oral tablet (20 sources)Start: 04-08-2024 End: 15-69-4896255 mg, oral, Nightly, First dose on Mon04/08/24 at 2200, Food- Drug Interaction Education Required Look-alike/sound-alike medication - verify indication for use Maintain normal daily intakes of fluids and salt (sodium) Enteral Feeding: Mix solution with 10-30 mL water prior to administering in f eeding tubeStart: 06-13-2022 End: 40-27-8773mhufgjz carbonate 300 mg tablet 06/13/2022 ActiveStart: 28-71-3448powk 2 tablets by mouth once dailylithium carbonate 300 mg tablet Take 2 tablets (600 mg total) by mouth nightly. 01/17/2022 ActiveStart: 01-17-2022 End: 86-11-3454weafosb carbonate 300 mg tablet 2 tablets (600 mg total). 01/17/2022 Active End: 31-57-3921bymvjgf ER (Eskalith) 450 MG 12 hr tablet Dunean 01/09/2024 Discontinued1 ml LORazepam 2 mg/ml injection (3 sources)BenzodiazepineStart: 04-08-2024 End: 76-97-5026mxlg 1 mg intravenously once1 mg, intravenous, Once, On Mon04/08/24 at 2015, For 1 dose, Look-alike/sound-alike medication - verify indication for use;IV use requires increased monitoring of HR,BP,Respirations and Pulse Oximetry;For IV-dilute with equal volume PF sod chloride, Indication: Sedation End: 99-17-3401kppk 1 tablet by mouth twice dailyLORazepam (ATIVAN) 2 MG tablet Take 2 mg by mouth 2 times daily. 0 10/20/2021 Discontinued (Stop Taking at Discharge)lumateperone (CAPLYTA) 10.5 mg capsule (20 sources) End: 46-20-8039prhc 1 capsule by mouth once dailylumateperone (CAPLYTA) [...] mg oral tablet (8 sources)AntiemeticStart: 06-22-2022 End: 45-46-4710jdtq 1 tablet by mouth three times daily [...] 80 mg/ml injection (4 sources)CorticosteroidStart: 02-09-2024 End: 92-73-3987sgbllvVMAECVKrvrjd acetate (DEPO-Medrol) injection 80 mgStart: 02-09-2024 End: 28-03-0928naukijOSGLWBZbkdlm acetate (DEPO-Medrol) injection 80 mgStart: 02-09-2024 End: 50-12-399208 mg, Injection, Once, On Mon02/09/24 at 1130, For 1 doseStart: 02-09-2024 End: 24-48-921680 mg, Injection, Once, On Mon02/09/24 at 1130, For 1 dose2 ml midazolam 1 mg/ml injection (1 source)BenzodiazepineStart: 10-19-2021 End: 87-47-1872amkuausqc PF (VERSED) injection 1 mgmontelukast 10 mg oral tablet (19 sources)Leukotriene Receptor AntagonistStart: 06-07-2022 End: 81-58-7083sinm 1 tablet by mouth in the morningmontelukast [...] spray,non-aerosol nasal spray (6 sources)Start: 04-10-2024 End: 79-87-9534rwrsadbw (NARCAN) 4 mg/actuation spray,non-aerosol nasal spray Administer 1 spray (4 mg total) intoalternating nostrils as needed for opioid reversal. 1 each 04/10/2024 04/25/2024 DiscontinuedStart: 88-03-6434aepsudip (NARCAN) 4 mg/actuation spray,non-aerosol nasal spray Administer 1 spray (4 mg total) intoalternating nostrils as needed for opioid reversal. 1 each 04/10/2024 ActiveStart: 22-87-2617qjcwlhdo (NARCAN) 4 mg/actuation spray,non-aerosol nasal spray Administer 1 spray (4 mg total) intoalternating nostrils as needed for opioid reversal. 1 each 04/10/2024naratriptan 2.5 mg oral tablet (4 sources)Serotonin-1b and Serotonin-1d Receptor AgonistStart: 02-55-5956zkhk 1 tablet by mouth every four hours [...] topical powder (15 sources)Polyene AntifungalStart: 01-24-2024 End: 70-24-4132igqiiyow (MYCOSTATIN) powder APPLY TO THE AFFECTED AREA(S) topically TWICE DAILY 01/24/2024 04/08/2024 Discontinued (Therapy completed) Start: 01-24-2024 End: 75-04-3452ywccvfdw (Mycostatin) 897417 UNIT/GM powder Indications: Rash , Yeast dermatitis Apply topically 2 (two) times a day 60 g 01/24/2024 02/28/2024 Discontinued2 ml ondansetron 2 mg/ml injection (20 sources)Serotonin-3 Receptor AntagonistStart: 08-01-2024 End: mg, INTRAVENOUS, EVERY 1 HOUR NEEDED, 2 doses, Starting on Mon08/02/24 at 1017, Until Mon08/02/24 at 1453, Nausea/Vomiting - First Line - ParenteralStart: 05-04-2024 End: 95-39-9902cgya 1 tablet by mouth every six hours [...] dose, Administer over 2-5 minutes.Start: 02-10-2024 End: 49-95-1409qisw 1 tablet by mouth every eight hours [...] - First Line - ParenteralStart: 12-24-2020 End: 95-48-9207vlzmfejxqgg (ZOFRAN) injection 4 mgphentermine hydrochloride 37.5 mg oral capsule (20 sources)Sympathomimetic Amine AnorecticStart: 06-06-2024 End: 35-76-2356ozxa 1 capsule by mouth once daily in the morningphentermine 37.5 MG capsule Indications: Weight loss Take 1 capsule (37.5 mg total) by mouth every morning. 30 capsule 06/06/2024 10/24/2024 Discontinued (Therapy completed) Start: 03-21-2023 End: 79-72-7984fboe 1 tablet by mouth once daily before [...] dissolve drug prior to administrationpolyethylene glycol 3350 24031 mg powder for oral solution (1 source)Osmotic LaxativeStart: g, Oral, DAILY PRN, Starting on Mon10/19/21 at 1226, Until Discontinued, Constipation First linetherapy for constipationprochlorperazine 5 mg/ml injectable solution (3 sources)PhenothiazineStart: 01-22-2024 End: 55-90-863794 mg, INTRAVENOUS, NEEDED, 1 dose, Starting on Mon01/22/24 at 1328, Until Mon01/22/24 at 1407, for headache; previously tolerated if given with Benadryl, Protect From LightStart: 01-19-2024 End: 37-10-668968 mg, INTRAVENOUS, NEEDED, 1 dose, Starting on Mon01/19/24 at 0909, Until Mon01/19/24 at 0951, for headache; previously tolerated if given with Benadryl, Protect From LightStart: 01-17-2024 End: 63-65-682441 mg, INTRAVENOUS, NEEDED, 1 dose, Starting on Mon01/17/24 at 0815, Until Mon01/17/24 at 0923, for headache; previously tolerated if given with Benadryl, Protect From Lightrimegepant 75 mg disintegrating oral tablet (8 sources)Start: 10-29-2020 End: 12-39-3009kfuxxbfrwq 75 mg tablet,disintegrating Indications: Chronic mixed headache syndrome Dissolve 1 tablet on tongue daily as needed (migraines). 8 tablet 1 10/29/2020 03/25/2024 Discontinued (Therapy completed)20 ml ropivacaine hydrochloride 5 mg/ml injection (2 sources)Amide Local AnestheticStart: 08-18-2023 End: 86-53-5115JEZlnydykkv (PF) 5 mg/mL (0.5 %) 100 mg [...] hypersensitivity/anaphylaxis grading in nursing communication.Start: 04-08-2024 End: 01-38-255686 mL, intravenous, As needed, line care, Starting on Mon04/08/24 at 1521Start: 04-08-2024 End: 43-37-714507 mL, intravenous, Once in imaging, pre/post contrast, Starting on Mon04/08/24 at 1521, For 1 doseStart: 04-08-2024 End: ,000 mL, intravenous, at 3,871 mL/hr, Administer over 31 Minutes, Once, On Mon04/08/24 at 1335, For 1 doseStart: 01-19-2024 End: 72-27-4538788 mL, INTRAVENOUS, at 999 mL/hr, Administer over 0.5 Hours, ONCE, 1 dose, On Mon01/19/24 at 0930Start: 01-17-2024 End: 31-38-7905027 mL, INTRAVENOUS, at 999 mL/hr, Administer over 0.5 Hours, ONCE, 1 dose, On Mon01/17/24 at 0830Start: 38-21-2024gttu 1 dose intravenously twice daily5-40 mL, IntraVENous, [...] Midline or Central Line = 20 mL/lumenStart: 96-77-0141juguuc chloride flush 0.9 % injection 10 mLStart: 10-19-2021 End: 99-03-6376JfrpbDSBgot, at 125 mL/hr, CONTINUOUS, Starting on Mon10/19/21 at 1245Start: 29-97-4884KmqzvWMUbcg, at 5-250 mL/hr, PRN, if patient receiving [...] or less into rate field of order.Start: 37-58-5636fpzf 5-40 mL intravenously once as needed5-40 mL, [...] Reductase Inhibitor Antibacterial, Sulfonamide AntimicrobialStart: 04-07-2024 End: 48-81-1719wijk 1 tablet by mouth once in the morningsulfamethoxazole- trimethoprim (BACTRIM DS) 800-160 mg per tablet Take 1 tablet by mouth in the morning and 1 tablet before bedtime. 04/07/2024 04/10/2024 Discontinued (Stop Taking at Discharge)Start: 11-15-2023 End: 86-98-1216bino 1 tablet by mouth once in the morning, then take 1 tablet by mouth once at bedtimesulfamethoxazole-trimethoprim (Bactrim DS) 800-160 MG per tablet Indications: Acute bronchitis due to other specified organisms Take 1 tablet by mouth in the morning and 1 tablet before bedtime. Do all this for 14 days. 28 tablet 11/15/2023 11/29/2023 ActiveStart: 10-10-2023 End: 89-33-5163plvd 1 tablet by mouth once in the [...] (3 sources)Serotonin-1b and Serotonin-1d Receptor Agonist End: 18-63-2279KBPMxkcuwbc (IMITREX) 100 mg tablet Take 100 mg by mouth. 0 12/03/2021 Discontinued (Lack of Efficacy)Comment on above:Take 100 mg by mouth. traZODone hydrochloride 100 mg oral tablet (20 sources)Serotonin Reuptake InhibitorStart: 04-09-2024 End: 90-95-2427bsyd 300 mg by mouth once xwdsi400 mg, oral, Nightly, First dose on Mon04/09/24 at 0100, Look-alike/sound-alike medication - verify indication for use.Start: 46-60-9980iogy 1 tablet by mouth once dailytraZODone (DESYREL) 300 MG tablet Take 1 tablet (300 mg total) by mouth nightly. 03/14/2024 Active Start: 05-10-2023 End: 39-24-6212vsss 1 tablet by mouth at bedtimetraZODone (Desyrel) 300 MG tablet Take 300 mg by mouth at bedtime 05/10/2023 02/28/2024 DiscontinuedStart: 06-13-2022 End: 85-63-2345vlxOFFjwp (DESYREL) 100 mg tablet 06/13/2022 05/03/2024 Discontinued End: 35-06-5739uqcs 2 tablets by mouth once dailytraZODone (DESYREL) 100 mg tablet Take 2 tablets (200 mg total) by mouth nightly. 03/25/2024 Discontinued (Therapy completed) End: 50-67-1900rtkROAexo (Desyrel) 50 MG tablet Take by mouth at bedtime. 01/09/2024 Discontinuedvancomycin (VANCOCIN) IVPB 1250 mg/250 mL in 0.9% sodium chloride (premix) (1 source)Start: 04-09-2024 End: 38-88-5707wmad 1250 mg intravenously every eight hours1,250 mg, [...] (YELLOW), Indication: Uncomplicated skin and soft tissue zopdeturi96 hr venlafaxine 75 mg extended release oral [...] mg oral tablet (20 sources)Start: 04-20-2022 End: 25-90-3286olrnfjpzvk (VIIBRYD) 20 mg tablet 2 tablets (40 mg total). 04/20/2022 03/25/2024 Discontinued (Therapy completed)Start: 04-20-2022 End: 04-79-6461zsnzqvvdmx (VIIBRYD) 20 mg tabletvitamin b12 1 mg oral tablet (8 sources)Vitamin B12 End: 58-00-2154unii 1 tablet by mouth in the morningcyanocobalamin 1000 MCG tablet Take 1 tablet (1,000 mcg total) by mouth in the morning. 03/25/2024 D iscontinued (Therapy completed) Problems Active Problems Problem ClassificationProblemDateDocumented DateEpisodic/ChronicAllergic reactions (3 sources)Environmental allergy; Translations: [Other allergy status, other than to drugs and biological substances]Onset: 998719-96-9620Onmtuyhv Anxiety disorders (20 sources)Anxiety disorder, unspecified; Translations: [Generalized anxiety disorder]Onset: 938589-66-6900LhglpboRwjikx (20 sources)Unspecified asthma, uncomplicated; Translations: [Mild persistent asthma]Onset: 12-29-2021 Resolved: 253430-08-0453LmtftjySqhuuoupuqdiz of surgical procedures or medical care (2 sources)Menopausal flushing; Translations: [Symptomatic postprocedural ovarian failure]43-58-4812FzfqgsmQ Codes: Fall (1 source)Unspecified fall, initial encounter; Translations: [UNSPECIFIED FALL INITIAL ENCOUNTER]Onset: 92-47-8050CxsfvlsjCutxwgjtrexms (1 source)Endometriosis, unspecified; Translations: [ENDOMETRIOSIS UNSPECIFIED] Onset: 07-26-2141EqiedqhXfzikxnfdh disorders (6 sources)Gastro-esophageal reflux disease without esophagitis; Translations: [Gastroesophageal reflux disease]Onset: 141490-25-9371PnrjaziLqnhoqphsbasf symptoms and ill-defined conditions (1 source)Stress incontinence (female) (male); Translations: [STRESS INCONTINENCE FEMALE MALE]Onset: 36-20-3529GiinzhjTpokturvissag symptoms and ill- defined conditions (1 source)Painful micturition, unspecified; Translations: [PAINFUL MICTURITION UNSPECIFIED]Onset: 71-37-9474WsoilvdnKkpcvllh; including migraine (20 sources)Migraine; Translations: [Migraine, unspecified, not intractable, without status migrainosus]Onset: 35-38-9471UsqisdnEnhddhqz; including migraine (1 source)Headache; Translations: [Chronic intractable headache, unspecified headache type]EpisodicHeadache; including migraine (4 sources)Headache; including migraine; Translations: [HEADACHE UNSPECIFIED] Onset: 32-42-7424Meysh valve disorders (1 source)Nonrheumatic mitral (valve) prolapse; Translations: [NONRHEUMATIC MITRAL VALVE PROLAPSE]Onset: 51-72-8786MvyorflMlrgfdujglyz; infection of eye (except that caused by tuberculosis or sexually transmitteddisease) (12 sources)Infection of bilateral eyes; 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, bilateral]Onset: 697982-74-0332OdiyaxiQwtziqxutjgp diseases of female pelvic organs (4 sources)Female pelvic peritoneal adhesions; Translations: [Female pelvic peritoneal adhesions (postinfective)]83-66-8341VgfchwoqDavydvzekz disorders (3 sources)Menopausal symptom; Translations: [Menopausal and female climacteric states]37-88-1556SxepejaPpprmwcct disorders (1 source)Dysmenorrhea, unspecified; Translations: [DYSMENORRHEA UNSPECIFIED] Onset: 81-27-9981HxhpbhhHirbiosawzexn mental health disorders (20 sources)Dissociative convulsions; Translations: [Conversion disorder with seizures or convulsions]Onset: 61-47-3681YqxowgeYtov disorders (20 sources)Bipolar disorder, unspecified; Translations: [Major depressive disorder, single episode, unspecified]Onset: 134857-90-6350XffztzxNgiobnb (5 sources)Mycosis; Translations: [Candidiasis, unspecified]73-54-9255Uksmiqss Other aftercare (1 source)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; Translations: [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 FIRE 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 KEEPER CURRENT DRUG THERAPY]Onset: 26-90-4003GqjrdnrtZtgso aftercare (2 sources)Wound finding; Translations: [Encounter for other specified aftercare]48-90-2042JzzvzfthOpvbl connective tissue disease (2 sources)Spasm; Translations: [Other muscle spasm]63-81-2028YnptkvufBvqrd endocrine disorders (1 source)Polycystic ovarian syndrome; Translations: [POLYCYSTIC OVARIAN SYNDROME]Onset: 11-43-9986NxpagpoDbekw endocrine disorders (20 sources)Polycystic ovary; Translations: [Polycystic ovarian syndrome]Onset: 006923-20-7757BdulexxLeegb eye disorders (1 source)Bilateral epiphora of eyes; Translations: [Unspecified epiphora, bilateral]39-22-9279BpgwfwkvBhisc female genital disorders (1 source)Unspecified dyspareunia; Translations: [UNSPECIFIED DYSPAREUNIA]Onset: 33-84-9564WbvksudBasuj female genital disorders (1 source)Abnormal uterine and vaginal bleeding, unspecified; Translations: [ABNORMAL UTERINE VAGINAL BLEED UNS]Onset: 13-00-7771OanjqweReupg female genital disorders (2 sources)Pain in female genitalia on intercourse; Translations: [Unspecified dyspareunia]26-06-5024CzunzvtXyvwr gastrointestinal disorders (1 source)Other constipation; Translations: [OTHER CONSTIPATION]Onset: 39-08-9983LtcczyrsJwrbv injuries and conditions due to external causes (4 sources)Unspecified injury of head, initial encounter; Translations: [UNSPECIFIED INJURY HEAD INITIAL ENC]Onset: 12-34-4576HrglkupgEkvtp injuries and conditions due to external causes (1 source)Allergic reaction; Translations: [Allergy, unspecified, sequela] 18-36-7573CvsgsnmdVmcly liver diseases (1 source)Fatty (change of) liver, not elsewhere classified; Translations: [FATTY CHANGE LIVER NEC]Onset: 45-02-6643JdlqoktZkmba lower respiratory disease (1 source)Nodule of lung; Translations: [Solitary pulmonary nodule]03-20-2024 EpisodicOther nervous system disorders (1 source)Tremor; Translations: [Tremor, unspecified]EpisodicOther nervous system disorders (3 sources)Postoperative pain ; Translations: [Other acute postprocedural pain] 40-31-6460XlqvasdyHstuy nutritional; endocrine; and metabolic disorders (1 source)Morbid (severe) obesity due to excess calories; Translations: [MORBID SEVERE OBES D/T EXCESS DAJUAN]Onset: 87-73-2413FnfgqjyTkjmt nutritional; endocrine; and metabolic disorders (1 source)Body mass index (BMI) 45.0-49.9, adult; Translations: [BODY MASS INDEX BMI 45.0-49.9 ADULT]Onset: 80-17-2650ZyrbrpdXfnsu nutritional; endocrine; and metabolic disorders (8 sources)Morbid obesity; Translations: [Morbid (severe) obesity due to excess calories]Onset: 361185-96-4537FonmsmxVrkdf nutritional; endocrine; and metabolic disorders (20 sources)Severe obesity; Translations: [Class 3 severe obesity due to excess calories without serious comorbidity with body mass index (BMI) of 50.0 to 59.9 in adult]Onset: 968386-92-1745JmhydvsRcsna nutritional; endocrine; and metabolic disorders (2 sources)Weight decreased; Translations: [Abnormal weight loss]06-06-2024 EpisodicOther skin disorders (2 sources)Excessive sweating; Translations: [Generalized hyperhidrosis] 82-57-4132CzxgovkuNnvtv upper respiratory disease (3 sources)Seasonal allergic rhinitis; Translations: [Other seasonal allergic rhinitis]12-39-1071TgihuwoLmuak upper respiratory infections (1 source)Acute pansinusitis; Translations: [Acute pansinusitis, unspecified] 67-79-1783VkltidzsWpzizh media and related conditions (1 source)Otitis media of left ear; Translations: [Otitis media, unspecified, left ear]45-59-7081GszqkernUlfwclp cyst (11 sources)Complex ovarian cyst; Translations: [Other ovarian cyst, unspecified side]03-73-3358TrdlehsnOtpoyrnw codes; unclassified (4 sources)Obstructive sleep apnea syndrome; Translations: [Obstructive sleep apnea (adult) (pediatric)]99-36-4190AnyikncAiuppnui codes; unclassified (1 source)Acquired absence of other specified parts of digestive tract; Translations: [ACQ ABSENCE OTH PART DIGESTV TRACT]Onset: 14-63-5219Jtmjdmbi Residual codes; unclassified (1 source)Preoperative hrxap35-02-4106DqggubpmKvvnnywo codes; unclassified (2 sources)Family history of hereditary disease; Translations: [Family history of other specified conditions]88-42-6874ZnbotwlwPorlbdhf codes; unclassified (2 sources)Reduced libido; Translations: [Decreased libido]05-84-1748Dbapyqwx Residual codes; unclassified (1 source)Family history of other specified conditions; Translations: [Family history of other specified conditions]Onset: 18-74-9319XribytjfWhaznbjjdnox (3 sources)LOW BACK PAIN, UNSPECIFIED; Translations: [LOW BACK PAIN, UNSPECIFIED]Onset: 25-73-0420Lohgsdhuruvh (1 source)CONTACT W/AND (SUSP) EXPOS COVID-19; Translations: [CONTACT W/AND (SUSP) EXPOS COVID-19]Onset: 81-81-4725Uarjy infection (1 source)Disease caused by 2019-nCoV; Translations: [COVID-19]01-24-2024 Episodic Past or Other Problems Problem ClassificationProblemDateDocumented DateEpisodic/ChronicAbdominal pain (20 sources)Unspecified abdominal pain; Translations: [Pelvic and perineal pain] Onset: 08-17-2021 Resolved: 73-34-3343OffzmnudRquso bronchitis (20 sources)Acute infective bronchitis; Translations: [Acute bronchitis due to other specified organisms]Onset: 10-10-2023 Resolved: 932926-22-9449MqwvhchsFkiy; stupor; and brain damage (20 sources)Somnolence; Translations: [Loss of consciousness]Onset: 08-06-2021 Resolved: 530516-07-8104RezbwzrjJcyujudtbxnoj of surgical procedures or medical care (20 sources)Postoperative complication; Translations: [Other postprocedural complications and disorders of genitourinary system]Onset: EpisodicContraceptive and procreative management (1 source)Tubal ligation status; Translations: [TUBAL LIGATION STATUS]Onset: 73-01-0197OichnbjaNfvpbmsnc of teeth and jaw (20 sources)Toothache; Translations: [Other specified disorders of teeth and supporting structures]Onset: 072438-23-9052AoroasypQmrqtliv; convulsions (20 sources)Seizure disorder; Translations: [Epilepsy, unspecified, not intractable, without status epilepticus]Onset: 02-18-2020 Resolved: 79-26-9517LxflkevDjlebhsp; convulsions (20 sources)Neurological finding; Translations: [Unspecified convulsions]Onset: 10-19-2021 Resolved: 57-07-5152WnmckmguYsfhexb and fatigue (20 sources)Fatigue; Translations: [Other fatigue]Onset: EpisodicMood disorders (20 sources)Mood disorders; Translations: [DEPRESSION UNSPECIFIED]Onset: 03-03-2022 Resolved: Nausea and vomiting (20 sources)Nausea; Translations: [Nausea with vomiting, unspecified]Onset: 53-87-4239ZyigejkfZsyzt aftercare (20 sources)Long-term current use of drug therapy; Translations: [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]Onset: 804161-16-6240DwfhynvhHoqha female genital disorders (1 source)Pain in female pelvis; Translations: [Pelvic pain in female]Onset: 990031-79-8421CbfwfjggQnqfr gastrointestinal disorders (1 source)Diarrhea, unspecified; Translations: [DIARRHEA UNSPECIFIED]Onset: 62-18-8542LnjrtmizXnpgv liver diseases (1 source)Hepatomegaly, not elsewhere classified; Translations: [HEPATOMEGALY NEC]Onset: 47-92-5376LxxfopytBqjzw lower respiratory disease (20 sources)Dyspnea on exertion; Translations: [Shortness of breath]Onset: 828417-91-9603AkaiiyerNjini lower respiratory disease (20 sources)Cough; Translations: [Acute cough]Onset: 01-27-2022 Resolved: 126418-69-2494CjbuqfzpOoydc nervous system disorders (5 sources)Other acute postprocedural pain; Translations: [OTHER ACUTE POSTPROCEDURAL PAIN]Onset: 09-20-1903RyzwuimeZavtn screening for suspected conditions (not mental disorders or infectious disease) (20 sources)Suspected disorder; Translations: [Encounter for suspected anomaly ruled out]Onset: 363772-80-2560DnypmtouQugxe skin disorders (13 sources)Ingrowing great toenail; Translations: [Ingrowing nail]Onset: 412634-75-2863MhovftboKtmxfayq codes; unclassified (1 source)Acquired absence of both cervix and uterus; Translations: [ACQUIRED ABSENCE BOTH CERVIX AND UTERUS]Onset: 18-32-0742NufddoiuBxjnfdcn codes; unclassified (1 source)Other specified postprocedural states; Translations: [OTH SPECIFIED POSTPROCEDURAL STATES]Onset: 46-47-9607IsimnwscQehcgmzj codes; unclassified (20 sources)Persistent insomnia; Translations: [Insomnia, unspecified]Onset: 931506-89-9860CwzjxiqbVnsdgklm codes; unclassified (20 sources)Edema, generalized; Translations: [Generalized edema]Onset: 664134-10-5607TmnmgfpuDkrefjck codes; unclassified (20 sources)History of bilateral salpingo-oophorectomy; 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, bilateral]Onset: 481242-53-7007YxasdjntSuvb and subcutaneous tissue infections (20 sources)Cellulitis of abdominal wall ; Translations: [Cellulitis of abdominal wall]Onset: 705296-54-8067XjvnrfilBmvdzahatsp; intervertebral disc disorders; other back problems (20 sources)Cervicalgia; Translations: [Neck pain]Onset: 311019-23-2612 EpisodicUnclassified (1 source)LOW BACK PAIN, UNSPECIFIED; Translations: [LOW BACK PAIN, UNSPECIFIED] Onset: 81-59-2839Uwfidzfymxpm (1 source)Patient encounter czufks05-43-1033Ysswagobzngh (1 source)Onset: 300048-37-0907Folbmcy tract infections (1 source)Urinary tract infection, site not specified; Translations: [UTI SITE NOT SPECIFIED]Onset: 87-41-3731Hlvuxlrw Results Test NameValueInterpretationReference RangeFacilityCNOVon 53-30-6303WTCWVjlble Visit (NHMNS2) APRIL NICHOLSON ([id number]) 1995 F Date Time Provider Department 10/24/25 [...] 3 infusion treatments: Monday, yesterday, and today. Arpil reports snoring and during sleep, and believes [...] ZOLMitriptan (ZOMIG) 5 mg nasal sprayUse 1 [place] in the nose as needed at onset of migraine headache. If symptoms persist or return, may repeat dose in other nostril after 2 hours. Maximum of 2 sprays per 24 hoursDisp: 12 eachRfl: 5 albuterol sulfate 90 mcg/actuation breath activated powder inhalerInhale 2 Puffs as instructed every 6 hours as needed for (more content not included)... [facility]Hol[facility] 19-94-7530UKOPQcjtls Visit (NHMNS2) APRIL NICHOLSON ([id number]) 1995 F Date Time Provider Department 12/12/24 9:00 AM BASIL CORNELIUS [facility] During your visit today, we recorded the following information about you: Pulse Blood pressure Weight 102/minute 127/79 128 kg Basil Cornelius DO 12/12/2024 9:58 AM Signed [facility] [address] [place] [address] Headache Center - Follow up Visit Accompanied [...] this. Current treatment: Preventative: Vyepti 300 mg f5yvaslu Abortive: Zavzpret 10 mg IN prn Zomig IN prn Phenergan Last office visit 09/24/2024: Headache 1 Lo (more content not included)...NormalKettering Health Washington TownshipCNPNon [phone] (MNOPRX) APRIL NICHOLSON ([id number]) 1995 F Date Time Provider Department 08/05/24 RHIANNON BOBO MNOPRX During your visit today, we recorded the following information about you: Rhiannon Bobo 08/06/2024 9:58 AM Signed Ambulatory Pharmacy Prior Authorization Note Provider Intervention Required?: No - Pharmacy completed on your behalf. Was the PA documented within the ePA workqueue?: No Rx Plan: Medicaid MCO ([facility]) Drug: Zavzpret 10MG/ACT solution Cover My Meds Chong: [id number] Determination: Approved Prior Authorization/Case #: [id number] Prior Authorization Expiration: 01/31/2025 Time to PA [...] refills. Prescriptions will now be processed through [facility] for determination of next steps. For questions relating to this submission, please contact [facility] at [phone] Allergies As of Date: 08/05/2024 Noted Allergy [...] Hives PROCHLORPERAZINE 12/29/2023 5 - Intolerance VYEPTI ([facility] 05/02/2024 2 - Rash 9 - Itching Comments: Patient described extreme itching located on her chest and arms (bilaterally). Date Reviewed: 08/05/2024 Reviewed by: Curtis Lepe PA-C - Fully Assessed Reason for Visit: Insurance Authorization [[id number]] Cmt: Zavzpret 10MG/ACT solution Zavzpret 10MG/ACT solution [...] (ZOMIG) 5 mg nasal spray Use 1 [place] in the nose as needed at onset [...] [facility]24[facility] [phone] Visit (NHMNS2) APRIL NICHOLSON ([id number]) 1995 F Date Time Provider Department 08/02/24 [...] ZOLMitriptan (ZOMIG) 5 mg nasal sprayUse 1 [place] in the nose as needed at onset [...] Behaviors: no pain be (more content not included)...NormalKettering Health Washington TownshipCNPNon 73-35-7961NYLQWukudsggr (NIQ) APRIL NICHOLSON ([id number]) 1995 F Date Time Provider Department 07/05/24 [...] (ZOMIG) 5 mg nasal spray Use 1 [place] in the nose as needed at onset [...] w*09/19/2023 Encounter Status:Closed by MENDOZA DOOLEY on 07/05/24NoUpper Valley Medical CenterUrinalysis macro (dipstick) panel (U)on 87-73-1476Edfusrvux, UANegative Negative - 4(70) +++ mg/dLNOMS HealthcareBlood, [...] - 12 mg/dLNOMS HealthcareNOMS HealthcareNCH Lab Reporton 40-68-4140Lndciv NormalNationAultman Alliance Community HospitalComment on above:Performed By: #### DNASTOR #### Performed at [facility], [address] [place] [address] [id number] 05-07-2024 CNPNTelephone (MNOPRX) APRIL NICHOLSON ([id number]) 1995 F Date Time Provider Department 05/07/24 [...] the PA tio. Thanks! Angely Cotton RN [facility] P: , F: Angely Cotton RN 05/08/2024 3:21 PM Signed [facility] received prescription(s) for Ubrelvy 100MG tablets . Benefits investigation was conducted, indicating that a prior authorization is required. All pertinent clinical information was submitted to insurance. Epic- Referral # [id number] Angely Cotton RN [facility] P: , F: Angely Cotton RN 05/13/2024 9:21 AM Signed Ambulatory Pharmacy Prior Authorization Note Provider Intervention Required?: No - Pharmacy completed on your behalf. Was the PA documented within the ePA workqueue?: No Rx Plan: Medicaid MCO ([facility]) Drug: Ubrelvy 100MG tablets Cover My Meds Chong: [id number] Determination: Approved Prior Authorization/Case #: [id number] Prior Authorization Expiration: 05/07/24 Time to PA [...] refills. Prescriptions will now be processed through [facility] for determination of next steps. For questions relating to this submission, please contact [facility] at [phone] Allergies As of Date: 05/07/2024 Noted Allergy [...] Intolerance VORTIOXETINE 08/06/2021 4 - Hives VYEPTI ([facility]) 05/02/2024 2 - Rash 9 - Itching [...] (ZOMIG) 5 mg nasal spray Use 1 [place] in the nose as needed at onset [...] Encounter Status:Closed by MU (more content not included)...NormalC[facility] ClevelandIGP,APTIMA HPV,AGE GDLNon 65-29-9875IFM GDLN ACOG TESTINGNote. NOMS HealthcareComment on above:TESTS RESULT FLAG UNITS REF RANGE LAB Clinician Provided Cytology Information Source.............Vagina No. of containers..01 ThinPrep Vial Age Algo ACOG Becca... -20 03 FLAG LEGEND: L-Low Normal,H-High Normal,LL-Alert Low,HH-Alert High <-Panic Low,>-Panic High,A-Abnormal,AA-Critical Abnormal Performed at: 01 =G [facility] [address] [place] [address] Pearl Franco MD, IGP, RFX APTIMA HPV ASCUNote.NOMS HealthcareComment on above:TESTS RESULT FLAG UNITS REF RANGE LAB DIAGNOSIS: 02 NEGATIVE FOR INTRAEPITHELIAL LESION OR MALIGNANCY. Specimen adequacy: 02 Satisfactory for evaluation. No endocervical component is identified. Performed by: Daksha Nichole, Nutrition Technician . 02 Note: Note 02 The Pap [...] High,A-Abnormal,AA-Critical Abnormal Performed at: 02 [facility] [address] [place] [address] Pearl Franco MD, Performed at: =G - [facility] [address] [id number] Civil Lawyer: Pearl Franco MD, Phone: [phone] Performed at: - [facility] [id number] Civil Lawyer: Pearl Franco MD, Phone: [phone] SPATULA-ALONE VAGINA CLINISYNCNOMS HealthcareCBC auto differentialon 41-19-3911Vpyi form neutrophils/100 WBC (Bld)3 %[facility] HospitalEosinophils (Bld) [#/Vol]0.3 10*3/uLMercy Health Anderson HospitalEosinophils/100 WBC (Bld)3 %[facility] HospitalErythrocyte distribution width (RBC) [Ratio]13.7 %11.5 - 15.0 %[facility] HospitalHematocrit (Bld) [Volume fraction]32.8 %Low35 - 47 %[facility] HospitalHemoglobin (Bld) [Mass/Vol]11.1 g/dLLow11.7 - 15.5 g/dLMercy Health Anderson HospitalInterpretation and review of laboratory resultsAbnormalMercy Health Anderson HospitalLymphocytes (Bld) [#/Vol]1.2 10*3/[facility] Lymphocytes/100 WBC (Bld)12 %[facility] HospitalMCH (RBC) [Entitic mass]29 pg27 - 34 pgPVan Wert County HospitalMCHC (RBC) [Mass/Vol]33.8 g/dL32 - 36 g/dL [facility] HospitalMCV (RBC) [Entitic vol]86 fL80 - 100 [facility] HospitalMonocytes (Bld) [#/Vol]0.6 10*3/[facility] HospitalMonocytes/100 WBC (Bld)6 %[facility] HospitalNeutrophils (Bld) [#/Vol]7.6 10*3/uLHigh [facility] HospitalPlatelet mean volume (Bld) [Entitic vol]7.7 fL7 - 12 fL [facility] HospitalPlatelets (Bld) [#/Vol]225 10*3/[facility] Polychromasia LM Ql (Bld)1+AbnormalNONE^NONEMercy Health Anderson HospitalRBC (Bld) [#/Vol]3.82 10*6/uLNovant Health Huntersville Medical Centeregmented neutrophils/100 WBC (Bld)76 %[facility] HospitalWBC corrected for nucl RBC Auto (Bld) [#/Vol]9.7 [facility] York HospitalComprehensive metabolic panelon 54-90-7420Rllqnaj [Mass/Vol]3.3 g/dL3.2 - 5.3 g/dLProChillicothe Hospital SystemALP [Catalytic activity/Vol]80 U/L39 - 130 U/[facility] Health SystemALT No additional P-5'-P [Catalytic activity/Vol]39 U/LHigh0 - 31 U/[facility] SystemAnion gap [Moles/Vol]7 mmol/L5 - 15 mmol/LPrConejos County Hospital Health SystemAST [Catalytic activity/Vol]16 U/L0 - 41 U/[facility] SystemBilirubin [Mass/Vol]0.3 mg/dL0.3 - 1.2 mg/dLMercy Health Anderson HospitalCalcium [Mass/Vol]9.2 mg/dL8.5 - 10.5 mg/dLMercy Health Anderson HospitalChloride [Moles/Vol]107 mmol/L98 - 109 mmol/[facility] SystemCO2 [Moles/Vol]27 mmol/L22 - 32 mmol/[facility] SystemCreatinine [Mass/Vol]0.55 mg/dL0.40 - 1.00 mg/dLMercy Health Anderson HospitalComment on above:METHOD TRACEABLE TO [facility] STANDARDeGFR (CKD-EPI)non-race dependent- [facility] ClinicComment on above: Reported eGFR is based on the CKD-EPI 2020 equation that does not use a race coefficient. Glucose [Mass/Vol]102 mg/mNWtva59 - 99 mg/dLMercy Health Anderson Hospital Interpretation and review of laboratory resultsAbnormalMercy Health Anderson Hospital Potassium [Moles/Vol]4.1 mmol/L3.5 - 5.0 mmol/[facility] SystemProtein [Mass/Vol]6.4 g/dL6.0 - 8.0 g/dLNovant Health Huntersville Medical Centerodium [Moles/Vol]141 mmol/L134 - 146 mmol/[facility] SystemUrea nitrogen [Mass/Vol]9 mg/dL5 - 23 mg/dLWellSpan York HospitalBacteria identified Cx Nom (U)on 69-54-9758Zwsuipo comment (Unsp spec) [Interp]URINE RECEIVED WITHOUT PRESERVATIVEProChillicothe Hospital SystemService comment (Unsp spec) [Interp]10-50,000 ORGANISMS/mL NORMAL UROGENITAL FLORAProEndless Mountains Health SystemsBasic Metabolic Panelon 95-23-0923Sgdnz gap [Moles/Vol]12 mmol/L5 - 15 mmol/LPrFlower Hospital SystemCalcium [Mass/Vol]8.9 mg/dL8.5 - 10.5 mg/dL [facility] HospitalChloride [Moles/Vol]103 mmol/L98 - 109 mmol/LPrConejos County Hospital Health SystemCO2 [Moles/Vol]24 mmol/L22 - 32 mmol/LPrFlower Hospital System Creatinine [Mass/Vol]0.61 mg/dL0.40 - 1.00 mg/dLMercy Health Anderson HospitalComment on above:METHOD TRACEABLE TO IDOH STANDARDeGFR (CKD-EPI)non-race dependent- PINF [facility] HospitalComment on above: Reported eGFR is based on the CKD-EPI 2020 equation that does not use a race coefficient. Glucose [Mass/Vol]106 mg/kMNins14 - 99 mg/dLMercy Health Anderson Hospital Interpretation and review of laboratory resultsAbElizabethtown Community Hospital Potassium [Moles/Vol]4 mmol/L3.5 - 5.0 mmol/[facility] SystemSodium [Moles/Vol]139 mmol/L134 - 146 mmol/LPrFlower Hospital SystemUrea nitrogen [Mass/Vol]9 mg/dL5 - 23 mg/dLWellSpan York HospitalCBC auto differentialon 06-26-3082Wkam form neutrophils/100 WBC (Bld)1 %[facility] HospitalEosinophils (Bld) [#/Vol]0.8 10*3/uLBuchanan General Hospital Eosinophils/100 WBC (Bld)6 %[facility] HospitalErythrocyte distribution width (RBC) [Ratio]13.5 %11.5 - 15.0 %[facility] HospitalHematocrit (Bld) [Volume fraction]32.9 %Low35 - 47 %[facility] HospitalHemoglobin (Bld) [Mass/Vol]11.2 g/dLLow11.7 - 15.5 g/dLMercy Health Anderson HospitalInterpretation and review of laboratory resultsAbElizabethtown Community HospitalLymphocytes (Bld) [#/Vol]1.5 10*3/[facility] HospitalLymphocytes/100 WBC (Bld)11 %[facility] HospitalMCH (RBC) [Entitic mass]28.8 pg27 - 34 [facility] MCHC (RBC) [Mass/Vol]34 g/dL32 - 36 g/dLMercy Health Anderson HospitalMCV (RBC) [Entitic vol]85 fL80 - 100 [facility] HospitalMonocytes (Bld) [#/Vol]0.5 10*3/uLMercy Health Anderson HospitalMonocytes/100 WBC (Bld)4 %[facility] Neutrophils (Bld) [#/Vol]10.6 10*3/uLBuchanan General HospitalPlatelet mean volume (Bld) [Entitic vol]7.5 fL7 - 12 [facility] HospitalPlatelets (Bld) [#/Vol]232 10*3/[facility] HospitalPolychromasia LM Ql (Bld)1+Abnormal NONE^NONEMercy Health Anderson HospitalRBC (Bld) [#/Vol]3.89 10*6/[facility] Hospitalegmented neutrophils/100 WBC (Bld)78 %[facility] HospitalWBC corrected for nucl RBC Auto (Bld) [#/Vol]13.4HighSt. Mary Rehabilitation HospitalMRSA DNA SAURABH+probe Ql (Unsp spec)on 28-20-9232GevOroxsvMercy Health Anderson HospitalMrsa Pcr nasal swabon 75-60-7981CMQL DNA SAURABH+probe Ql (Unsp spec) NegativeNegative^NegativeMercy Health Anderson HospitalAPTTon 41-82-3770yNUT Coag (PPP) [Time]35 [facility] HospitalBasic Metabolic Panelon 57-15-5825Icbpl gap [Moles/Vol]10 mmol/L5 - 15 mmol/[facility] SystemCalcium [Mass/Vol]9.4 mg/dL8.5 - 10.5 mg/dLMercy Health Anderson HospitalChloride [Moles/Vol]101 mmol/L98 - 109 mmol/[facility] SystemCO2 [Moles/Vol]26 mmol/L22 - 32 mmol/[facility] HospitalCreatinine [Mass/Vol]0.61 mg/dL0.40 - 1.00 mg/dLMercy Health Anderson HospitalComment on above:METHOD TRACEABLE TO IDOH STANDARDeGFR (CKD-EPI)non-race dependent- [facility] ClinicComment on above: Reported eGFR is based on the CKD-EPI 2020 equation that does not use a race coefficient. Glucose [Mass/Vol]94 mg/dL65 - 99 mg/dLMercy Health Anderson HospitalPotassium [Moles/Vol]4 mmol/L3.5 - 5.0 mmol/[facility] SystemSodium [Moles/Vol]137 mmol/L134 - 146 mmol/[facility] HospitalUrea nitrogen [Mass/Vol]10 mg/dL5 - 23 mg/dLMercy Health Anderson HospitalC-reactive proteinon 19-54-2909LWZ [Mass/Vol] 15.4 mg/dLHigh0.000 - 0.744 mg/dLMercy Health Anderson HospitalCBC auto differentialon 52-26-3251Uddoicjju (Bld) [#/Vol]0.1 10*3/uLMercy Health Anderson HospitalBasophils/100 WBC (Bld)0.5 %[facility] HospitalEosinophils (Bld) [#/Vol]0.2 10*3/uL [facility] HospitalEosinophils/100 WBC (Bld)1.1 %[facility] Erythrocyte distribution width (RBC) [Ratio]13.4 %11.5 - 15.0 %[facility] HospitalHematocrit (Bld) [Volume fraction]37.6 %35 - 47 %[facility] Hemoglobin (Bld) [Mass/Vol]12.8 g/dL11.7 - 15.5 g/dLMercy Health Anderson Hospital Interpretation and review of laboratory resultsAbnormalMercy Health Anderson Hospital Lymphocytes (Bld) [#/Vol]1.3 10*3/uLMercy Health Anderson HospitalLymphocytes/100 WBC (Bld)6.7 %[facility] HospitalH (RBC) [Entitic mass]28.7 pg27 - 34 pg [facility] HospitalMCHC (RBC) [Mass/Vol]34.1 g/dL32 - 36 g/dLMercy Health Anderson HospitalMCV (RBC) [Entitic vol]84 fL80 - 100 [facility] Monocytes (Bld) [#/Vol]0.7 10*3/[facility] HospitalMonocytes/100 WBC (Bld) 3.5 %[facility] HospitalNeutrophils (Bld) [#/Vol]17.2 10*3/uLHighMercy Health Anderson HospitalNeutrophils/100 WBC (Bld)88.2 %[facility] HospitalPlatelet mean volume (Bld) [Entitic vol]8.5 fL7 - 12 [facility] SystemPlatelets (Bld) [#/Vol]290 10*3/[facility] HospitalRBC (Bld) [#/Vol]4.46 10*6/[facility] HospitalWBC corrected for nucl RBC Auto (Bld) [#/Vol]19.6HighWellSpan York HospitalCRP [Mass/Vol]on 90-36-0637Bifowpygcognra and review of laboratory resultsAbnormalWellSpan York HospitalCT Abdomen and Pelvis W contrast Pat 89-81-6573UD ABDOMEN AND PELVIS W CONT HISTORY: Abdominal [...] 4:09 PM [facility] SystemRadiology Study observation (narrative)[facility] SightCine Scheurer HospitalCT Abdomen and Pelvis W contrast IVOrdered By: Kyle Solorio on 04-08-2024 [facility] Work Phone: ecg 12 leadon 11-09-4054TKNKPGPXUYFASURiuZbebjw Health SystemLaboratory - Microbiology and Antimicrobial susceptibilityon 04-08-2024 FLUAV+FLUBV RNA SAURABH+probe Ql (Unsp spec)NegativeNegative^NegativeBethesda North Hospital SystemLactate (P anuradha) [Moles/Vol]on 73-21-6783SnzDyvlpiMercy Health Anderson Hospital Lactate w/ Reflexon 52-79-5598Fyrwdaw (P anuradha) [Moles/Vol]0.8 mmol/L0.4 - 2.0 mmol/[facility] SystemComment on above: Result did not trigger repeat Lactate, re-order if needed. Liver panelon 88-41-4156Mkkcuut [Mass/Vol]3.9 g/dL3.2 - 5.3 g/dLMercy Health Anderson HospitalALP [Catalytic activity/Vol]88 U/L39 - 130 U/[facility] SystemALT No additional P-5'-P [Catalytic activity/Vol]59 U/LHigh0 - 31 U/[facility] SystemAST [Catalytic activity/Vol]26 U/L0 - 41 U/[facility] System Bilirubin [Mass/Vol]0.7 mg/dL0.3 - 1.2 mg/dLMercy Health Anderson Hospital Bilirubin.direct [Mass/Vol]0 mg/dL0.0 - 0.4 mg/dLMercy Health Anderson Hospital Interpretation and review of laboratory resultsAbnormalMercy Health Anderson Hospital Protein [Mass/Vol]7.3 g/dL6.0 - 8.0 g/dLMercy Health Anderson HospitalMagnesiumon 45-79-1764Mgcyfoljc [Mass/Vol]1.8 mg/dL1.8 - 2.6 mg/dLMercy Health Anderson HospitalNo Panel Informationon 84-93-8567UjhCasfbhWellSpan York HospitalPOCT Nursing Urine Macroscopic UAon 06-67-5754Gtpfxqpye Ql (U)Negative Negative^NegativeProMedica Health SystemGlucose [Mass/Vol]Negative Negative^Negative mg/dLMercy Health Anderson HospitalHemoglobin Ql (U)TraceAbnormal Negative^NegativeMercy Health Anderson HospitalInterpretation and review of laboratory resultsAbnoCentral Harnett HospitalKetones (U) [Mass/Vol]Negative Negative^Negative mg/dLMercy Health Anderson HospitalLeukocyte esterase Test strip Ql (U)NegativeNegative^NegativeMercy Health Anderson HospitalNitrite Ql (U)Negative Negative^NegativeMercy Health Anderson HospitalpH (U)7.5 [pH]5.0 - 8.5PVan Wert County HospitalProtein Ql (U)TraceAbnormalNegative^Negative mg/dLMercy Health Anderson Hospital Specific gravity (U) [Rel density]1.021.003 - 1.035Mer[facility] Urobilinogen Qn (U)0.2NINFWellSpan York HospitalProtime & INRon 10-70-6798ILB Coag (PPP) [Relative time]1.3 {INR}HighMercy Health Anderson HospitalInterpretation and review of laboratory resultsAbnoCentral Harnett HospitalPT Coag (PPP) [Time]14.7 sHigAtrium Health ClevelandARS/FLU A+B/RSV by NAAT/Molecular (M4RT Collection Tube)on 83-68-9402EFI RNA SAURABH+probe Nom (Unsp spec)NegativeNegative^NegativeNovant Health Huntersville Medical CenterARS-CoV-2 (COVID-19) RNA SAURABH+probe Ql (Resp)Not detectedNot Detected^Not DetectedMercy Health Anderson Hospital Comment on above:NOTE The Xpert Xpress [...] operators who are performing tests using either SimplyInsured or [employer] systems and is limited to laboratories that [...] specimen repeat. Fact Sheet for Healthcare Providers: https://www.fda.gov/media/912950/download Fact Sheet for Patients: https://www.fda.gov/media/952979/download [facility] HospitalThyroid profile includes TSH FT4on 36-59-0940Jskq T4 [Mass/Vol]0.62 ng/dL0.61 - 1.60 ng/dLMercy Health Anderson HospitalTSH Qn0.54 m[IU]/L [facility] HospitalTroponin I, High Sensitivityon 01-07-9376Collagsr I.cardiac High sensitivity method [Mass/Vol]2 ng/LNINF - 16 ng/LProMedSumma Health Wadsworth - Rittman Medical CenterTroponin I, High Sensitivity 1 Houron 04-08-2024 Troponin I.cardiac High sensitivity method [Mass/Vol]2 ng/LNINF - 16 ng/L [facility] HospitalTroponin I.cardiac High sensitivity method [Mass/Vol]on 29-98-7208BzcTbuiwiWellSpan York HospitalXR Chest Single viewon 04-08-2024 XR CHEST 1 VW History: Short of breath. One view study. Comparison: 01/23/2024 Impression: * Lungs are now clear. No focal airspace disease or infiltrate is appreciated. No acute process is seen. Finalized by Renetta Andrea MD on 04/08/2024 2:12 PMSECTRAGulfport Behavioral Health Systemmarbin, Renetta Gentile MD - 04/08/2024 XR CHEST 1 VW History: Short of breath. One view study. Comparison: 01/23/2024 Impression: * Lungs are now clear. No focal airspace disease or infiltrate is appreciated. No acute process is seen. Finalized by Renetta Andrea MD on 04/08/2024 2:12 PM [facility] HospitalRadiology Study observation (narrative)[facility] SystemXR Chest Single viewOrdered By: Renetta Andrea on 10-84-1263OkjJnihpeMercy Health Anderson Hospital Work Phone: ecg 12 leadon 58-87-5214CKFWBGIBIUCYRLUyqPelvjd Health SystemABO Rh Repeaton 59-36-5245GDWZPgwNvldcbSt. John's Episcopal Hospital South ShoreRh Nom (Bld)Positive [facility] SystemType and screen(includes indirect ady)on 96-95-3082IMJBEgxIhbsyfSt. John's Episcopal Hospital South ShoreRh Nom (Bld)PositiveFormerly Francisc[facility] Healthcare SystemRespiratory allergy panelon 03-21-2024. alternata [...] kU/LProMedica Health SystemComment on above:Class 0: NormalCalifornia [place] Pollen IgE Qn (S)kU/LNINF - 0.10 kU/L [...] level of Allergy, indicative of ongoing sensitization Painter IgE Qn (S)0.25 kU/LHighNINF - 0.10 kU/LProMedica Health SystemComment on above:Class 0/1: Low level of Allergy, ongoing sensitization Dog dander IgE Qn (S)52.5 kU/LHighNINF - 0.10 kU/LProMedica Health SystemComment on above:Class 5:Very High level of Allergy,indicative of very high level sensitization house dust mite IgE Qn (S)kU/LNINF - 0.10 kU/LProMedica Health System Comment on above:Class 0: NormalGoosefoot IgE Qn (S)kU/LNINF - 0.10 kU/L [facility] Health SystemComment on above:Class 0: NormalIgE Qn602 [IU]/LHigh ProMriverview [facility] center Health SystemInterpretation and review of laboratory resultsAbnormal [facility] SystemJohnson grass IgE Qn (S)0.96 kU/LHighNINF - 0.10 kU/L [facility] SystemComment on above:Class 2:Moderate level of [...] Health SystemComment on above:Class 0: NormalPecan or [place] Tree IgE Qn (S)0.17 kU/LHighNINF - 0.10 kU/LProMedica Health SystemComment on above: Class 0/1: Low level of Allergy, ongoing sensitization Saltwort IgE Qn (S)0.38 kU/LHighNINF - 0.10 kU/LProMedica Health SystemComment on above:Class 1:Low level of Allergy, indicative of ongoing sensitization Sheep Roma IgE Qn (S)kU/LNINF - 0.10 kU/LProMedica Health SystemComment on above:Class 0: NormalSilver Birch IgE Qn (S)kU/LNINF - 0.10 kU/LProMedica Health SystemComment on above:Class 0: NormalTimothy IgE Qn (S)1.92 kU/LHighNINF - 0.10 kU/LProMedica Health SystemComment on above:Class 2:Moderate level of Allergy, indicative of stronger ongoing sensitization White [place] IgE Qn (S)kU/LNINF - 0.10 kU/LProMedica [facility] SystemComment on above: Class 0: NormalWhite Elm IgE Qn (S)kU/LNINF - 0.10 kU/LProMedica Health System Comment on above:Class 0: NormalWhite mulberry IgE Qn (S)kU/LNINF - 0.10 kU/L [facility] SystemComment on above:Class 0: NormalWhite [place] IgE Qn (S)kU/L NINF - 0.10 kU/LProMedica [facility] SystemComment on above:Class 0: NormalMercy Health Anderson HospitalPulmonary function test Spirometry (Flow Volume Loop)Ordered By: Dinorah Cummins on [id number] Health Anderson HospitalCA 125on [id number] Ag 125 Qn7 [arb'U]/mL0 - 35 U/mLMercy Health Anderson HospitalComment on above: The method used for this test is Olga Lexim DXI chemiluminescent immunoassay. Values obtained by different assay methods cannot be used interchangeably. CBC auto differentialon [id number] (Bld) [#/Vol]0 10*3/uLMercy Health Anderson HospitalBasophils/100 WBC (Bld)0.6 %[facility] HospitalEosinophils (Bld) [#/Vol]0.5 10*3/uLHighMercy Health Anderson HospitalEosinophils/100 WBC (Bld)8.4 %[facility] HospitalErythrocyte distribution width (RBC) [Ratio]13.6 %11.5 - 15.0 %[facility] HospitalHematocrit (Bld) [Volume fraction]40.6 %35 - 47 % [facility] HospitalHemoglobin (Bld) [Mass/Vol]13.7 g/dL11.7 - 15.5 g/dL [facility] HospitalInterpretation and review of laboratory resultsAbnormal [facility] Anderson HospitalLymphocytes (Bld) [#/Vol]1.3 10*3/uLMercy Health Anderson HospitalLymphocytes/100 WBC (Bld)23.5 %[facility] HospitalMCH (RBC) [Entitic mass]29.2 pg27 - 34 [facility]HealthMCHC (RBC) [Mass/Vol]33.7 g/dL32 - 36 g/dLMercy Health Anderson HospitalMCV (RBC) [Entitic vol]87 fL80 - 100 [facility] HospitalMonocytes (Bld) [#/Vol]0.3 10*3/uLMercy Health Anderson Hospital Monocytes/100 WBC (Bld)5.3 %[facility] HospitalNeutrophils (Bld) [#/Vol]3.5 10*3/uLMercy Health Anderson HospitalNeutrophils/100 WBC (Bld)62.2 %[facility] HospitalPlatelet mean volume (Bld) [Entitic vol]8.9 fL7 - 12 [facility] HospitalPlatelets (Bld) [#/Vol]233 10*3/uLMercy Health Anderson HospitalRBC (Bld) [#/Vol] 4.67 10*6/[facility] HospitalWBC corrected for nucl RBC Auto (Bld) [#/Vol] 5.7Formerly [facility] SystemCEAon 03-18-2024 Carcinoembryonic Ag [Mass/Vol]0.9 ng/mL0.0 - 3.0 ng/mLMercy Health Anderson Hospital Comment on above: 0.0-3.0 ng/mL FOR NON SMOKERS 0.0-5.0 ng/mL FOR SMOKERS The method used for this test is Olga Griffin DXI chemiluminescent immunoassay. Values obtained by different assay methods cannot be used interchangeably. Cancer Ag 125 Qnon 94-31-1834JmtSpstduMercy Health Anderson HospitalCancer Ag 19-9 Qnon 33-19-2221TviEzezifMercy Health Anderson HospitalCancer antigen 19-9on 33-65-3342Phbbsn Ag 19-9 QnU/mL0.0 - 35.0 U/mLCrystal Clinic Orthopedic Center SightCine Scheurer HospitalComment on above: The method used for this test is Olga Griffin DXI chemiluminescent immunoassay. Values obtained by different assay methods cannot be used interchangeably. Carcinoembryonic Ag [Mass/Vol]on [id number] Health SystemComprehensive metabolic panelon 27-41-8417Yufiiti [Mass/Vol]4.3 g/dL3.2 - 5.3 g/dLProRussell Medical Center Health SystemALP [Catalytic activity/Vol]51 U/L39 - 130 U/LProMedica Health SystemALT No additional P-5'-P [Catalytic activity/Vol]21 U/L0 - 31 U/[facility] Health SystemAnion gap [Moles/Vol]10 mmol/L5 - 15 mmol/LProMedica Health System AST [Catalytic activity/Vol]15 U/L0 - 41 U/LProMedencompass health rehabilitation hospital of montgomery Health SystemBilirubin [Mass/Vol]0.5 mg/dL0.3 - 1.2 mg/dLBethesda North Hospital SystemCalcium [Mass/Vol]9.2 mg/dL8.5 - 10.5 mg/dLBethesda North Hospital SystemChloride [Moles/Vol]104 mmol/L98 - 109 mmol/[facility] Health SystemCO2 [Moles/Vol]27 mmol/L22 - 32 mmol/[facility] SystemCreatinine [Mass/Vol]0.62 mg/dL0.40 - 1.00 mg/dLMercy Health Anderson HospitalComment on above:METHOD TRACEABLE TO IDOH STANDARDeGFR (CKD-EPI)non-race dependent- [facility]ilion ClinicComment on above: Reported eGFR is based on the CKD-EPI 2020 equation that does not use a race coefficient. Glucose [Mass/Vol]88 mg/dL65 - 99 mg/dLMercy Health Anderson HospitalInterpretation and review of laboratory resultsAbnormalBethesda North Hospital SystemPotassium [Moles/Vol]3.4 mmol/LLow3.5 - 5.0 mmol/LProMedica Health SystemProtein [Mass/Vol]6.6 g/dL6.0 - 8.0 g/dLBethesda North Hospital SystemSodium [Moles/Vol]141 mmol/L134 - 146 mmol/[facility] Centerica Health SystemUrea nitrogen [Mass/Vol]12 mg/dL5 - 23 mg/dLFormerly Francisc[facility] Healthcare SystemCNPNon [id number] Telephone ([facility]) APRIL NICHOLSON ([id number]) 1995 F Date Time Provider Department 02/22/24 SAGAR BARTH [facility] During your visit today, we recorded the following information about you: Jannette Castrejon RN 02/22/2024 12:04 PM Signed Prior Authorization submitted via [employer] on 02/22/2024: Insurance: [place] Medicaid Medication: Zolmitriptan Chong Code: [id number] Awaiting Response Jannette Castrejon RN 03/14/2024 2:23 [...] Date Reviewed: 01/22/2024 Reviewed by: Raiza Shields APRN.AGENCY SALES REPRESENTATIVE - Fully Assessed Reason for Visit: Insurance Authorization [[id number]] Cmt: Zolmitriptan Prescriptions as of 03/14/2024 - ZOLMitriptan (ZOMIG) 5 mg nasal spray Use 1 [place] in the nose as needed at onset [...] - [facility] PELVIS W/ TRANSVAGINALon [id number] [address] Ultrasound Report Signed Patient: MARGARET NICHOLSON MR#: [id number] : 1995 Acct:[id number] Age/Sex: 28 / F ADM Date: 02/19/24 Loc: US Attending Dr: Zay Blas D.O. Ordering Physician: Zay Blas D.O. Date of Service: 02/19/24 Procedure(s): US pelvis w/ transvaginal Accession Number(s): [id number] cc: Zay Blas D.O.; Lamont Blair M.D. [address] [place] [address] Patient Name: MARGARET NICHOLSON MRN: [id number] date: 1995 Sex: F Assigned Patient Location: [place] Current Patient Location: [place] Accession/Order Number: [id number] Exam Date: 02/19/2024 07:11 Report Date: 02/19/2024 [...] M.D. Signed By: 02/19/24807 DD/ 4 TD/TT: Socially Responsible Investment Adviser:TBHRadiology, Radiologist, - 02/19/2024 [address] [place] [id number] Ultrasound Report Signed Patient: MARGARET NICHOLSON MR#: [id number] : 1995 Acct:[id number] Age/Sex: 28 / F ADM Date: 02/19/24 Loc: [place] Attending Dr: Zay Blas D.O. Ordering Physician: Zay Blas D.O. Date of Service: 02/19/24 Procedure(s): US pelvis w/ transvaginal Accession Number(s): [id number] cc: Zay Blas D.O.; Lamont Blair M.D. [place] [address] Patient Name: MARGARET NICHOLSON MRN: [id number] date: 1995 Sex: F Assigned Patient Location: [place] Current Patient Location: [place] Accession/Order Number: [id number] Exam Date: 02/19/2024 07:11 Report Date: 02/19/2024 [...] M.D. Signed By: 02/19/24807 DD/ 4 TD/TT: Socially Responsible Investment Adviser: ARLEN HealthcareRadiology Study observation (narrative)NOMKrupa HealthcareUS PELVIS W/ TRANSVAGINALOrdered By: Radiologist Radiology on [id number] Healthcare Work Phone: Pathology Request for Lab Corpon [id number] Request for Lab CorpNormJackson South Medical Center Physician GroupComment on above:Order Comment: PATHOLOGY GI SPECIMENResult Comment: See report. Scanned copy available in EMR. PERFORMED BY: [place] [address] PATHOLOGIST PARIMUTUEL CASHIER PALOMO JOYCE M.D.Performed By: #### PATH TO [facility] #### [place] [address] USACNPNon [phone] ([facility]) APRIL NICHOLSON ([id number]) 1995 F Date Time Provider Department 01/29/24 SAGAR BARTH [facility] During your visit today, we recorded the following information about you: Kelsey Patel 01/29/2024 10:53 AM Signed Name of Caller: nicky Relationship to patient: pharmacy Last visit in this department: 09/19/2023 Reason for Call: Other : need to verify quantity on zolmitriptan. Callback number: [phone] Amy Shrestha MA 01/29/2024 12:06 PM Signed Per last Rx on 11/10/2023: Disp Refills Start End ZOLMitriptan (ZOMIG) 5 mg nasal spray 10 Each 5 11/10/2023 -- Sig: Use 1 [place] in the nose as needed at onset [...] spray 12 Each 5 Sig: Use 1 [place] in the nose as needed at onset [...] Date Reviewed: 01/22/2024 Reviewed by: Raiza Shields APRN.AGENCY SALES REPRESENTATIVE - Fully Assessed Order(s):ZOLMitriptan (ZOMIG) 5 mg nasal sprayUse 1 [place] in the nose as needed at onset of migraine headache. If symptoms persist or return, may repeat dose in other nostril after 2 hours. Maximum of 2 sprays per 24 hoursDisp: 12 EachRfl: 5 Prescriptions as of 02/01/2024 - ZOLMitriptan (ZOMIG) 5 mg nasal spray Use 1 [place] in the nose as needed at onset [...] 5 01/30/2024 Route: NASAL Sig: Use 1 [place] in the nose as needed at onset of migraine headache. If symptoms persist or return, may repeat dose in other nostril after 2 hours. Maximum of 2 sprays per 24 hours Medications Discontinued During This Encounter Prescriptions - ZOLMitriptan (ZOMIG) 5 mg nasal spray (Discontinued) Use 1 [place] in the nose as needed at onset of migraine headache. If symptoms persist or return, may repeat dose in other nostril after 2 hours. Maximum of 2 sprays per 24 hours Encounter Status:Closed by KELSEY PATEL on 01/30/24[facility] [id number] Visit (NHMNS2) NICHOLSONCAROLINA ROGERSRA Fernández ([id number]) 1995 F Date Time Provider Department 01/22/24 2:30 PM RAIZA SHIELDS [facility] During your visit today, we recorded the following information about you: Raiza Shields APRN.[facility] 01/22/2024 1:57 PM Signed Headache Center [...] ZOLMitriptan (ZOMIG) 5 mg nasal sprayUse 1 [place] in the nose as needed at onset [...] and clear, coherent, and relevant. Short and fci memory, cognition and general [...] hold extra IV fluids (more content not included)...NormalKettering Health Washington TownshipBLOOD GASES BTYon [facility]ica Fostoria Community Hospitalment on above:Performed By: #### BMP #### [facility] [address] [address] [address] Ibis Pedraza TESTPositiveBrecksville VA / Crille HospitalCommclaren [place] on above: Performed By: #### BMP #### [facility] [address] [place] [address] Dr. Ibis An excess Calc (Bld) [Moles/Vol]-1.6000 mmol/LNormal-2.0-2.0The [facility] on above:Performed By: #### BMP #### [facility] [address] [place] [address] Dr. Ibis Elizalde [facility] HospitalCommclaren [facility] [place] on above: Performed By: #### BMP #### [facility] [address] [place] [address] Dr. Ibis JimenezCPAPMemorial Health System [facility] on above:Performed By: #### BMP #### [facility] [address] [place] [address] Dr. Ibis JimenezGgtruNLG0BsoelpXcfMemorial Health System [facility] on above:Performed By: #### BMP #### [facility] [address] [place] [address] Dr. Ibis JimenezHCO3 (Bld) [Moles/Vol]23.8 mmol/CKnkkhl37.0-26.0The [facility] on above:Performed By: #### BMP #### [facility] [address] [place] [address] Dr. Ibis JimenezLPMNUniversity Hospitals Portage Medical Center on above:Performed By: #### BMP #### [facility] [address] [address] [address] Ibis Sheffield [facility] HospitalComment on above: Performed By: #### BMP #### [facility] [address] [address] [address] Ibis Amezquita (Bld) [Partial pressure]75.5 mm[Hg]Critically low 80.0-100.0The [facility] CenterComment on above:Performed By: #### BMP #### [facility] [address] [address] [address] Ibis Amezquita saturation in Blood95.8 %Yznaqm17.0-100.0The [facility] CenterComment on above:Performed By: #### BMP #### [facility] [address] [place] [address] Dr. Ibis JimenezPCO241.8 efPoHzofzb61.0-45.0The [facility] CenterCommclaren central [place] on above:Performed By: #### BMP #### [facility] [address] [place] [address] Dr. Ibis JimenezSt. Mary's Medical Center, Ironton CampusCommclaren central [place] on above:Performed By: #### BMP #### [facility] [address] [place] [address] Dr. Ibis JimenezpH (Bld)7.363 [pH]Normal7.350-7.450The [facility] CenterCommclaren central [place] on above:Performed By: #### BMP #### [facility] [address] [place] [address] Dr. Ibis RennerormalThe [facility] CenterCommclaren central [place] on above:Performed By: #### BMP #### [facility] [address] [place] [address] Dr. Ibis JimenezSumma Health Akron CampusCommclaren central [place] on above:Performed By: #### BMP #### [facility] [address] [place] [address] Dr. Ibis Lindsey [facility] Orthopedic CenterCommclaren [facility] [place] on above: Performed By: #### BMP #### [facility] [address] [place] [address] Dr. Ibis OliveiraThe [facility] CenterComment on above:Performed By: #### BMP #### [facility] [address] [place] [address] Dr. Ibis Chow [facility] Hospital - WestComment on above:Performed By: #### BMP #### [facility] [address] [place] [address] Dr. Ibis JimenezParkwood HospitalComment on above:Performed By: #### BMP #### [facility] [address] [place] [address] Dr. Ibis Alexis AUTO DIFFon [id number] #0.0 103/ulNormal0.0-0.1The [facility] Osteopathic Hospitalment on above:Performed By: #### ACET, SALYC #### [facility] [address] [place] [address] Dr. Ibis JimenezBasophils/100 WBC (Bld)0.5 %Normal0.2-2.0[facility] Comment on above:Performed By: #### ACET, SALYC #### [facility] [address] [place] [address] Dr. Ibis Acevedo #0.3 103/ulNormal0.0-0.7The [facility] CenterCommclaren central [place] on above: Performed By: #### ACET, SALYC #### [facility] [address] [place] [address] Dr. Ibis Rojasosinophils/100 WBC (Bld)4.2 %Normal0.9-7.0[facility] Comment on above:Performed By: #### ACET, SALYC #### [facility] [address] [place] [address] Dr. Ibis Rojasrythrocyte distribution width (RBC) [Ratio]13.2 %Uzirxg78.0-15.0 [facility] HospitalComment on above:Performed By: #### ACET, SALYC #### [facility] [address] [place] [address] Dr. Ibis JimenezHematocrit (Bld) [Volume fraction]36.5 %Gszxlk74.0-48.0The [facility] CenterComment on above:Performed By: #### ACET, SALYC #### [facility] [address] [place] [address] Dr. Ibis JimenezHemoglobin (Bld) [Mass/Vol]11.7 g/dLCritically low12.0-16.0The [facility] CenterComment on above:Performed By: #### ACET, SALYC #### [facility] [address] [place] [address] Dr. Ibis Soto #0.05 10e3/ulCritically high0.00-0.03The [facility] Comment on above:Performed By: #### ACET, SALYC #### [facility] [address] [place] [address] Dr. Ibis Soto %0.8 %Critically high0.0-0.5The [facility] CenterComment on above:Performed By: #### ACET, SALYC #### [facility] [address] [place] [address] Dr. Ibis Monsalve #1.7 103/ulNormal1.2-3.8The [facility] CenterComment on above:Performed By: #### ACET, SALYC #### [facility] [address] [place] [address] Dr. Ibis Brennerhocytes/100 WBC (Bld)26.9 %Ijitqi10.5-60.0The [facility] CenterComment on above:Performed By: #### ACET, SALYC #### [facility] [address] [place] [address] Dr. Ibis NewtonUAL DIFF REQNONormalThe [facility] CenterComment on above: Performed By: #### ACET, SALYC #### [facility] [address] [place] [address] Dr. Ibis Irby (RBC) [Entitic mass]28.7 nkFrndjn20.7-34.0The [facility] CenterComment on above:Performed By: #### ACET, SALYC #### [facility] [address] [place] [address] Dr. Ibis Frank (RBC) [Mass/Vol]32.1 g/jHWzjlax02.9-35.2The [facility] CenterComment on above:Performed By: #### ACET, SALYC #### [facility] [address] [place] [address] Dr. Ibis Frank (RBC) [Entitic vol]89.7 zLYbjcor29.0-99.0The [facility] CenterComment on above:Performed By: #### ACET, SALYC #### [facility] [address] [place] [address] Dr. Ibis Magallanes #0.6 103/ulNormal0.3-0.8The [facility] CenterComment on above:Performed By: #### ACET, SALYC #### [facility] [address] [place] [address] Dr. Ibis Barbaocytes/100 WBC (Bld)8.9 %Normal1.7-12.0The [facility] Comment on above:Performed By: #### ACET, SALYC #### [facility] [address] [place] [address] Dr. Ibis Schultz #3.8 103/ulNormal1.4-6.5The [facility] CenterComment on above:Performed By: #### ACET, SALYC #### [facility] [address] [place] [address] Dr. Ibis Hiutrophils/100 WBC (Bld)58.7 %Rjsnjj39.0-75.0The [facility] CenterComment on above:Performed By: #### ACET, SALYC #### [facility] [address] [place] [address] Dr. Ibis Faye mean volume (Bld) [Entitic vol]9.3 fLCritically low 9.5-13.5The [facility] CenterComment on above:Performed By: #### ACET, SALYC #### [facility] [address] [place] [address] Dr. Ibis JimenezPLT188 103/ofYvmgli495-120Nvg [facility] on above: Performed By: #### ACET, SALYC #### [facility] [address] [address] [address] Ibis ConleyC4.07 106/ulCritically low4.20-5.40The [facility] on above:Performed By: #### ACET, SALYC #### [facility] [address] [place] [address] Dr. Ibis JimenezWBC6.4 103/ulNormal4.0-11.0[facility] on above: Performed By: #### ACET, SALYC #### [facility] [address] [place] [address] Dr. Ibis Cristina SCREEN RAPID (URINE)on 12-07-8811UAZMbbdrvajEylluoLDBIJQCX [facility] HospitalCommclaren [facility] [place] on above:Performed By: #### BMP #### [facility] [address] [place] [address] Dr. Ibis ParkinsonPositiveAbnormalNEGATIVEFulton County Health Center on above: Performed By: #### BMP #### [facility] [address] [place] [address] Dr. Ibis MarquesPNegativeNormalNEGATIVEFulton County Health Center on above: Performed By: #### BMP #### [facility] [address] [place] [address] Dr. Ibis MartinZOPositiveAbnormalNEGATIVEBellevue HospitalCommclaren central [place] on above: Performed By: #### BMP #### [facility] [address] [place] [address] Dr. Ibis DanielCNegativeNormalNEGATIVEBellevue HospitalCommclaren central [place] on above: Performed By: #### BMP #### [facility] [address] [place] [address] Dr. Ibis Yan-Barberton Citizens HospitalComment on above: Result Comment: AMP (Amphetamine): 500ng/mL, BAR (Barbituates): 200 ng/mL, BZO (Benzodiazepines): 150 ng/mL, BUP (Buprenorphine): 10 ng/mL, SEMAJ (Cocaine): 150 ng/mL, mAMP (Methamphetamine): 500 ng/mL, MTD (Methadone): 200 ng/mL, OPI (Opiates): 100 ng/mL, OXY (Oxycodone): 100 ng/mL, PCP (Phencyclidine): 25 ng/mL, PPX (Propoxyphene): 300 ng/mL, THC (Cannabinoids): 50 ng/mL, TCA (Trycyclic Antidepressants): 300 ng/mLPerformed By: #### BMP #### [facility] [address] [place] [address] Dr. Ibis JimenezDRUG CUT HEADERDRUG CLASS TEST SYSTEM CUT-OFF CONCENTRATIONS ARE FOLLOWS:NormalFulton County Health Center on above:Performed By: #### BMP #### [facility] [address] [place] [address] Dr. Ibis JimenezmAMPNegativeNormalNEGATIVEBellevue HospitalComment on above: Performed By: #### BMP #### [facility] [address] [place] [address] Dr. Ibis JimenezMTDNegativeNormalNEGATIVEFulton County Health Center on above: Performed By: #### BMP #### [facility] [address] [place] [address] Dr. Ibis SenINegativeNormalNEGATIVEFulton County Health Center on above: Performed By: #### BMP #### [facility] [address] [place] [address] Dr. Ibis JimenezOXYNegativeNormalNEGATIVEFulton County Health Center on above: Performed By: #### BMP #### [facility] [address] [place] [address] Dr. Ibis JimenezPCPNegativeNormalNEGATIVEFulton County Health Center on above: Performed By: #### BMP #### [facility] [address] [place] [address] Dr. Ibis JimenezPPXNegativeNormalNEGATIVEBellevue HospitalComment on above: Performed By: #### BMP #### [facility] [address] [address] [address] Ibis JimenezTCAPositiveAbnormalNEGATIVEBellevue HospitalCommclaren [place] on above: Performed By: #### BMP #### [facility] [address] [place] [address] Dr. Ibis JimenezTHCPositiveAbnormalNEGATIVEBellevue HospitalComment on above: Performed By: #### BMP #### [facility] [address] [address] [address] Ibis Drake URINE PROFILEon [id number] Ql (U)NegativeNormal NEGATIVEBellevue HospitalComment on above:Performed By: #### ACET, SALYC #### [facility] [address] [place] [address] Dr. Ibis JimenezClarity (U)CLEARNormalCLEARBellevue HospitalComment on above: Performed By: #### ACET, SALYC #### [facility] [address] [place] [address] Dr. Ibis JimeenzColor (U)YELLOWNormalYELLOWBellevue HospitalComment on above: Performed By: #### ACET, SALYC #### [facility] [address] [place] [address] Dr. Ibis Chang micrscopic examination will be performed if indicated. NormalThe [facility] CenterComment on above:Performed By: #### ACET, SALYC #### [facility] [address] [place] [address] Dr. Ibis JimenezGlucose Ql (U)NegativeNormalNEGATIVEBellevue HospitalComment on above:Performed By: #### ACET, SALYC #### [facility] [address] [place] [address] Dr. Ibis JimenezHemoglobin Ql (U)NegativeNormalNEGATIVEOhiohealth [facility] on above:Performed By: #### ACET, SALYC #### [facility] [address] [place] [address] Dr. Ibis JimenezKetones Ql (U)NegativeNormalNEGATIVEBellevue HospitalComment on above:Performed By: #### ACET, SALYC #### [facility] [address] [place] [address] Dr. Ibis JimenezLEUKOCYTESNegativeNormalNEGATIVEThe [facility] CenterComment on above:Performed By: #### ACET, SALYC #### [facility] [address] [place] [address] Dr. Ibis JimenezNitrite Ql (U)NegativeNormalNEGATIVEThe [facility] CenterComment on above:Performed By: #### ACET, SALYC #### [facility] [address] [place] [address] Dr. Ibis JimenezpH (U)5.0 [pH]Normal5-9The [facility] on above: Performed By: #### ACET, SALYC #### [facility] [address] [place] [address] Dr. Ibis JimenezSPEC GRAVITY>=1.770Rponppip0.005-<=1.025The [facility] Comment on above:Performed By: #### ACET, SALYC #### [facility] [address] [place] [address] Dr. Ibis Quintanilla PROTEINNegativeNormalNEGATIVE/ TRACEThe [facility] Comment on above:Performed By: #### ACET, SALYC #### [facility] [address] [place] [address] Dr. Ibis JimenezUR MICRO INDNOT INDICATEDNormalThe [facility] CenterComment on above:Performed By: #### ACET, SALYC #### [facility] [address] [place] [address] Dr. Ibis JimenezUrobilinogen Qn (U)0.2 {Dinorah'U}/dLNormal0.2 - 1.0The [facility] on above:Performed By: #### ACET, SALYC #### [facility] [address] [place] [address] Dr. Ibis JimenezPROF CHEM 8 (BAS METB)on [id number] gap [Moles/Vol]13.1 mmol/LNormalThe Alejandra HospitalComment on above:Performed By: #### MONO #### [facility] [address] [address] [address] Ibis JimenezCalcium [Mass/Vol]8.3 mg/dLCritically low8.5-10.1The [facility] CenterComment on above:Performed By: #### MONO #### [facility] [address] [address] [address] Ibis JimenezChloride [Moles/Vol]109 mmol/LCritically xhzn08-629Kzr [facility] CenterComment on above:Performed By: #### MONO #### [facility] [address] [address] [address] Ibis JimenezCO2 [Moles/Vol]25.7 mmol/UFoznqr90.0-32.0The [facility] Comment on above:Performed By: #### MONO #### [facility] [address] [place] [address] Dr. Ibis JimenezCreatinine [Mass/Vol]0.82 mg/dLNormal0.55-1.02The [facility] CenterComment on above:Performed By: #### MONO #### [facility] [address] [place] [address] Dr. Ibis RojasGFR-AF SAMMARINESE>60Normal>=60The [facility] CenterComment on above:Performed By: #### MONO #### [facility] [address] [address] [address] Ibis RojasGFR-NON AF SAMMARINESE>60Normal>=60The [facility] CenterComment on above:Performed By: #### MONO #### [facility] [address] [address] [address] Ibis JimenezGlucose [Mass/Vol]95 mg/eBPwouhx48-733Cyx [facility] Comment on above:Performed By: #### MONO #### [facility] [address] [address] [address] Ibis JimenezPotassium [Moles/Vol]3.8 mmol/LNormal3.5-5.1The [facility] Comment on above:Performed By: #### MONO #### [facility] [address] [address] [address] Ibis JimenezSodium [Moles/Vol]144 mmol/PWcyxpm679-560Ilf [facility] Comment on above:Performed By: #### MONO #### [facility] [address] [address] [address] Ibis JimenezUrea nitrogen [Mass/Vol]16.0 mg/dLNormal7.0-18.0Bellevue HospitalComment on above:Performed By: #### MONO #### [facility] [address] [place] [address] Dr. Ibis JimenezUrea nitrogen/Creatinine [Mass ratio]19.5 mg/mgNoalThe [facility] CenterComment on above:Performed By: #### MONO #### [facility] [address] [place] [address] Dr. Ibis JimenezACETAMINOPHENon 84-12-2317Ibeqaxpllktwg [Mass/Vol]ug/mLCritically low10.0-30.0B[facility] HospitalComment on above:Performed By: #### ACET, SALYC #### [facility] [address] [place] [address] Dr. Ibis JimenezDRUG SCREEN RAPID (URINE)on 34-93-9061PWEQjcewqjlJpnwsvXEYRUZLQ The [facility] CenterComment on above:Performed By: #### MONO #### [facility] [address] [place] [address] Dr. Ibis JimenezBARPositiveAbnormalNEGATIVEBellevue HospitalComment on above: Performed By: #### MONO #### [facility] [address] [place] [address] Dr. Ibis JimenezBUPNegativeNormalNEGATIVEThe [facility] CenterComment on above: Performed By: #### MONO #### [facility] [address] [place] [address] Dr. Ibis JimenezBZOPositiveAbnormalNEGATIVEThe [facility] CenterComment on above: Performed By: #### MONO #### [facility] [address] [place] [address] Dr. Ibis DanielCNegativeNormalNEGATIVEBellevue HospitalComment on above: Performed By: #### MONO #### [facility] [address] [place] [address] Dr. Ibis YanSelect Medical Specialty Hospital - CantonComment on above: Result Comment: AMP (Amphetamine): 500ng/mL, BAR (Barbituates): 200 ng/mL, BZO (Benzodiazepines): 150 ng/mL, BUP (Buprenorphine): 10 ng/mL, SEMAJ (Cocaine): 150 ng/mL, mAMP (Methamphetamine): 500 ng/mL, MTD (Methadone): 200 ng/mL, OPI (Opiates): 100 ng/mL, OXY (Oxycodone): 100 ng/mL, PCP (Phencyclidine): 25 ng/mL, PPX (Propoxyphene): 300 ng/mL, THC (Cannabinoids): 50 ng/mL, TCA (Trycyclic Antidepressants): 300 ng/mLPerformed By: #### MONO #### [facility] [address] [place] [address] Dr. Ibis JimenezDRUG CUT HEADERDRUG CLASS TEST SYSTEM CUT-OFF CONCENTRATIONS ARE FOLLOWS:NormalThe [facility] CenterCommclaren [facility] [place] on above:Performed By: #### MONO #### [facility] [address] [place] [address] Dr. Ibis JimenezmAMPNegativeNormalNEGATIVEBellevue HospitalCommclaren [facility] [place] on above: Performed By: #### MONO #### [facility] [address] [place] [address] Dr. Ibis JimenezMTDNegativeNormalNEGATIVEBellevue HospitalCommclaren [place] on above: Performed By: #### MONO #### [facility] [address] [place] [address] Dr. Ibis SenIPositiveAbnormalNEGATIVEBellevue HospitalCommclaren [place] on above: Performed By: #### MONO #### [facility] [address] [place] [address] Dr. Ibis JimenezOXYNegativeNormalNEGATIVEUC West [facility] Hospitalment on above: Performed By: #### MONO #### [facility] [address] [place] [address] Dr. Ibis JimenezPCPNegativeNormalNEGATIVEBellevue HospitalCommclaren [facility] [place] on above: Performed By: #### MONO #### [facility] [address] [place] [address] Dr. Ibis JimenezPPXNegativeNormalNEGATIVEBellevue HospitalCommclaren [place] on above: Performed By: #### MONO #### [facility] [address] [place] [address] Dr. Ibis JimenezTCANegativeNormalNEGATIVEBellevue HospitalCommclaren [facility] [place] on above: Performed By: #### MONO #### [facility] [address] [place] [address] Dr. Ibis JimenezTHCPositiveAbnormalNEGATIVEFulton County Health Center on above: Performed By: #### MONO #### [facility] [address] [place] [address] Dr. Ibis Drake URINE PROFILEon 98-74-9962Urcphslbm Ql (U)NegativeNormal NEGATIVEBellevue HospitalCommclaren [place] on above:Performed By: #### MONO #### [facility] [address] [place] [address] Dr. Ibis Sage (U)CLEARNormalCLEARBellevue HospitalCommclaren [place] on above: Performed By: #### MONO #### [facility] [address] [place] [address] Dr. Ibis Rivera (U)YELLOWNormalYELLOWBellevue HospitalCommclaren [place] on above: Performed By: #### MONO #### [facility] [address] [place] [address] Dr. Ibis Chang micrscopic examination will be performed if indicated. NormalBellevue HospitalCommclaren central [place] on above:Performed By: #### MONO #### [facility] [address] [place] [address] Dr. Ibis Kerrose Ql (U)NegativeNormalNEGATIVEBellevue HospitalCommclaren [facility] [place] on above:Performed By: #### MONO #### [facility] [address] [place] [address] Dr. Ibis JimenezHemoglobin Ql (U)TRACE-INTACTAbnormalNEGATIVEBellevue HospitalComment on above:Performed By: #### MONO #### [facility] [address] [place] [address] Dr. Ibis JimenezKetones Ql (U)NegativeNormalNEGATIVEUniversity [facility] HospitalComment on above:Performed By: #### MONO #### [facility] [address] [place] [address] Dr. Ibis JimenezLEUKOCYTESNegativeNormalNEGATIVEBellevue HospitalCommclaren [facility] [place] on above:Performed By: #### MONO #### [facility] [address] [place] [address] Dr. Ibis JimenezNitrite Ql (U)NegativeNormalNEGATIVEBellevue HospitalComment on above:Performed By: #### MONO #### [facility] [address] [place] [address] Dr. Ibis JimenezpH (U)6.0 [pH]Normal5-9Belle[facility] HospitalCommclaren [place] on above: Performed By: #### MONO #### [facility] [address] [place] [address] Dr. Ibis JimenezProtein (U) [Mass/Vol]30 mg/dLAbnormalNEGATIVE/ TRACEThe [facility] CenterComment on above:Performed By: #### MONO #### [facility] [address] [place] [address] Dr. Ibis JimenezSPEC GRAVITY1.263Ksbljm2.005-<=1.025The [facility] CenterCommclaren [place] on above:Performed By: #### MONO #### [facility] [address] [place] [address] Dr. Ibis Curtis MICRO INDINDICATEDNormalThe [facility] CenterComment on above: Performed By: #### MONO #### [facility] [address] [place] [address] Dr. Ibis JimenezUrobilinogen Qn (U)0.2 {Dinorah'U}/dLNormal0.2 - 1.0The [facility] CenterComment on above:Performed By: #### MONO #### [facility] [address] [place] [address] Dr. Ibis McdanielANOL (BLD ALC)on [id number] NOTENOTE: 80 mg/dl is the legal limit for a blood alcohol levelNoCleveland ClinicComment on above: Performed By: #### AMM #### [facility] [address] [place] [address] Dr. Ibis Mcdanielanol [Mass/Vol]mg/dLNoCleveland ClinicComment on above:Performed By: #### AMM #### [facility] [address] [place] [address] Dr. Ibis JimenezPOINT OF CARE GLUCOSEon 69-61-6431Aknhvda [Mass/Vol]88 mg/dL Odwkpf53-363Wwa [facility] CenterComment on above:Performed By: #### CVDTBH #### [facility] [address] [place] [address] Dr. Ibis JimenezPREGNANCY URon [id number], QUALNegativeNormalNEGATIVEThe [facility] CenterComment on above:Performed By: #### MONO #### [facility] [address] [place] [address] Dr. Ibis JimenezPROF CHEM 8 (BAS METB)on 63-88-5143Vjmmb gap [Moles/Vol]12.6 mmol/LNormalThe [facility] CenterComment on above:Performed By: #### AMM #### [facility] [address] [place] [address] Dr. Ibis JimenezCalcium [Mass/Vol]8.4 mg/dLCritically low8.5-10.1The [facility] CenterComment on above:Performed By: #### AMM #### [facility] [address] [place] [address] Dr. Ibis JimenezChloride [Moles/Vol]107 mmol/FPivtnt49-434Aww [facility] Comment on above:Performed By: #### AMM #### [facility] [address] [address] [address] Ibis JimenezCO2 [Moles/Vol]22.5 mmol/BPskctx23.0-32.0The [facility] Comment on above:Performed By: #### AMM #### [facility] [address] [address] [address] Ibis JimenezCreatinine [Mass/Vol]0.82 mg/dLNormal0.55-1.02The [facility] CenterComment on above:Performed By: #### AMM #### [facility] [address] [address] [address] Ibis RojasGFR-AF SAMMARINESE>60Normal>=60The [facility] CenterComment on above:Performed By: #### AMM #### [facility] [address] [place] [address] Dr. Ibis RojasGFR-NON AF SAMMARINESE>60Normal>=60The [facility] CenterComment on above:Performed By: #### AMM #### [facility] [address] [address] [address] Ibis JimenezGlucose [Mass/Vol]87 mg/tPIukebi17-283QfjBellevue Hospital Comment on above:Performed By: #### AMM #### [facility] [address] [address] [address] Ibis JimenezPotassium [Moles/Vol]4.1 mmol/LNormal3.5-5.1The [facility] Comment on above:Performed By: #### AMM #### [facility] [address] [address] [address] Ibis JimenezSodium [Moles/Vol]138 mmol/XMeggwy047-657Wmu [facility] Comment on above:Performed By: #### AMM #### [facility] [address] [address] [address] Ibis JimenezUrea nitrogen [Mass/Vol]22.0 mg/dLCritically high7.0-18.0The [facility] CenterComment on above:Performed By: #### AMM #### [facility] [address] [address] [address] Ibis Lama nitrogen/Creatinine [Mass ratio]26.8 mg/mgNoCleveland ClinicComment on above:Performed By: #### AMM #### [facility] [address] [place] [address] Dr. Ibis JimenezSALICYLATEon 95-20-2869QNTQEIVVKO<2.8Normal<=19.9The [facility] CenterComment on above:Performed By: #### ACET, SALYC #### [facility] [address] [place] [address] Dr. Ibis Morris MICROSCOPIC ONLYon 24-02-1760UTGRXWZFXNLA SEENNormalNONE SEENBellevue HospitalCommclaren central [place] on above:Performed By: #### MONO #### [facility] [address] [place] [address] Dr. Ibis JimenezBactanthony identified Cx Nom (U)NOT INDICATEDNoCleveland ClinicComment on above:Performed By: #### MONO #### [facility] [address] [place] [address] Dr. Ibis JimenezCASTSEENAbnormalNONE SEENFulton County Health Center on above: Performed By: #### MONO #### [facility] [address] [place] [address] Dr. Ibis JimenezCrystals LM Nom (Urine sed)NONE SEENNormalNONE SEENBellevue HospitalCommclaren [place] on above:Performed By: #### MONO #### [facility] [address] [place] [address] Dr. Baumann ChangEpithelial cells LM Ql (Urine sed)MODERATEAbnormalNONE SEEN /RARE The [facility] CenterCommclaren [facility] [place] on above:Performed By: #### MONO #### [facility] [address] [place] [address] Dr. Ibis GargALINE CASTFEWBrecksville VA / Crille HospitalComment on above: Performed By: #### MONO #### [facility] [address] [place] [address] Dr. Ibis McculloughUSRM SEENNormalNONE SEENBellevue HospitalComment on above:Performed By: #### MONO #### [facility] [address] [place] [address] Dr. Ibis JimenezMrcxiNAK9-6Fydgduep6-8Lht [facility] CenterComment on above:Performed By: #### MONO #### [facility] [address] [place] [address] Dr. Ibis JimenezWBCRM SEENNormalNONE SEENBellevue HospitalComment on above: Performed By: #### MONO #### [facility] [address] [place] [address] Dr. Ibis Alexis AUTO DIFFon 96-36-9039KICA #0.0 103/ulNormal0.0-0.1The [facility] CenterComment on above:Performed By: #### CVDTBH #### [facility] [address] [place] [address] Dr. Ibis JimenezBasophils/100 WBC (Bld)0.3 %Normal0.2-2.0The [facility] on above:Performed By: #### CVDTBH #### [facility] [address] [place] [address] Dr. Ibis Acevedo #0.0 103/ulNormal0.0-0.7The [facility] CenterComment on above: Performed By: #### CVDTBH #### [facility] [address] [place] [address] Dr. Ibis Rojasosinophils/100 WBC (Bld)0.1 %Critically low0.9-7.0The [facility] CenterComment on above:Performed By: #### CVDTBH #### [facility] [address] [place] [address] Dr. Ibis Rojasrythrocyte distribution width (RBC) [Ratio]13.2 %Fborsi07.0-15.0 The [facility] CenterComment on above:Performed By: #### CVDTBH #### [facility] [address] [place] [address] Dr. Ibis JimenezHematocrit (Bld) [Volume fraction]38.5 %Mtvnhi80.0-48.0The [facility] CenterComment on above:Performed By: #### CVDTBH #### [facility] [address] [place] [address] Dr. Ibis JimenezHemoglobin (Bld) [Mass/Vol]12.4 g/nQTftqev33.0-16.0The [facility] CenterComment on above:Performed By: #### CVDTBH #### [facility] [address] [place] [address] Dr. Ibis Soto #0.20 10e3/ulCritically high0.00-0.03The [facility] Comment on above:Performed By: #### CVDTBH #### [facility] [address] [place] [address] Dr. Ibis Soto %1.8 %Critically high0.0-0.5The [facility] CenterComment on above:Performed By: #### CVDTBH #### [facility] [address] [place] [address] Dr. Ibis Monsalve #0.5 103/ulCritically low1.2-3.8The [facility] Comment on above:Performed By: #### CVDTBH #### [facility] [address] [place] [address] Dr. Ibis Vuongmphocytes/100 WBC (Bld)4.6 %Critically low20.5-60.0Bellevue HospitalComment on above:Performed By: #### CVDTBH #### [facility] [address] [place] [address] Dr. Ibis JimenezMANUAL DIFF REQNONormalThe [facility] CenterComment on above: Performed By: #### CVDTBH #### [facility] [address] [place] [address] Dr. Ibis Irby (RBC) [Entitic mass]28.2 ndHsbzbs64.7-34.0The [facility] CenterComment on above:Performed By: #### CVDTBH #### [facility] [address] [place] [address] Dr. Ibis FrankHC (RBC) [Mass/Vol]32.2 g/hHOhwrhw12.9-35.2The [facility] CenterComment on above:Performed By: #### CVDTBH #### [facility] [address] [place] [address] Dr. Ibis Frank (RBC) [Entitic vol]87.5 fCJhihkr82.0-99.0The Grove HospitalComment on above:Performed By: #### CVDTBH #### [facility] [address] [place] [address] Dr. Ibis Magallanes #0.1 103/ulCritically low0.3-0.8The [facility] CenterComment on above:Performed By: #### CVDTBH #### [facility] [address] [place] [address] Dr. Ibis Barbaocytes/100 WBC (Bld)1.3 %Critically low1.7-12.0The [facility] CenterComment on above:Performed By: #### CVDTBH #### [facility] [address] [place] [address] Dr. Ibis Schultz #10.1 103/ulCritically high1.4-6.5The [facility] Comment on above:Performed By: #### CVDTBH #### [facility] [address] [place] [address] Dr. Ibis Hiutrophils/100 WBC (Bld)91.9 %Critically high43.0-75.0The [facility] CenterComment on above:Performed By: #### CVDTBH #### [facility] [address] [place] [address] Dr. Ibis Olsenlet mean volume (Bld) [Entitic vol]9.1 fLCritically low 9.5-13.5The [facility] CenterComment on above:Performed By: #### CVDTBH #### [facility] [address] [place] [address] Dr. Ibis EricksonT240 103/anTffvxp555-475Swx [facility] CenterComment on above: Performed By: #### CVDTBH #### [facility] [address] [place] [address] Dr. Ibis JimenezRBC4.40 106/ulNormal4.20-5.40The [facility] CenterComment on above:Performed By: #### CVDTBH #### [facility] [address] [place] [address] Dr. Ibis JimenezWBC11.0 103/ulNormal4.0-11.0The [facility] CenterComment on above:Performed By: #### CVDTBH #### [facility] [address] [place] [address] Dr. Ibis Charles 14(COMP METB)on 53-67-5109Upmrnjp [Mass/Vol]3.3 g/dL Critically low3.4-5.0The [facility] CenterComment on above:Performed By: #### BMP #### [facility] [address] [place] [address] Dr. Ibis JimenezAlbumin/Globulin [Mass ratio]0.9 {ratio}NormalThe [facility] CenterComment on above:Performed By: #### BMP #### [facility] [address] [place] [address] Dr. Ibis Ramos [Catalytic activity/Vol]63 U/VCpfbvp85-559Oyb [facility] CenterComment on above:Performed By: #### BMP #### [facility] [address] [place] [address] Dr. Ibis Underwood [Catalytic activity/Vol]32 U/HFqvkup20-86Dcz [facility] CenterComment on above:Performed By: #### BMP #### [facility] [address] [place] [address] Dr. Ibis Bal gap [Moles/Vol]12.9 mmol/LNormalThe [facility] on above:Performed By: #### BMP #### [facility] [address] [place] [address] Dr. Ibis Paris [Catalytic activity/Vol]14 U/LCritically pjv56-90Way [facility] CenterComment on above:Performed By: #### BMP #### [facility] [address] [place] [address] Dr. Ibis JimenezBilirubin [Mass/Vol]0.2 mg/dLNormal0.2-1.0[facility] Comment on above:Performed By: #### BMP #### [facility] [address] [place] [address] Dr. Ibis JimenezCalcium [Mass/Vol]8.5 mg/dLNormal8.5-10.1The [facility] Comment on above:Performed By: #### BMP #### [facility] [address] [place] [address] Dr. Ibis JimenezChloride [Moles/Vol]106 mmol/QNflqqr05-489ResBellevue Hospital Comment on above:Performed By: #### BMP #### [facility] [address] [place] [address] Dr. Ibis JimenezCO2 [Moles/Vol]26.6 mmol/REnwfxc44.0-32.0The [facility] Comment on above:Performed By: #### BMP #### [facility] [address] [place] [address] Dr. Ibis JimenezCreatinine [Mass/Vol]0.89 mg/dLNormal0.55-1.02The [facility] CenterComment on above:Performed By: #### BMP #### [facility] [address] [place] [address] Dr. Ibis RojasGFR-AF SAMMARINESE>60Normal>=60The [facility] CenterComment on above:Performed By: #### BMP #### [facility] [address] [place] [address] Dr. Ibis RojasGFR-NON AF SAMMARINESE>60Normal>=60The [facility] CenterComment on above:Performed By: #### BMP #### [facility] [address] [place] [address] Dr. Ibis JimenezGlobulin (S) [Mass/Vol]3.6 g/dLNormalThe Grove HospitalComment on above:Performed By: #### BMP #### [facility] [address] [address] [address] Ibis JimenezGlucose [Mass/Vol]134 mg/dLCritically urcc80-639XezBellevue HospitalComment on above:Performed By: #### BMP #### [facility] [address] [address] [address] Ibis JimenezPotassium [Moles/Vol]4.5 mmol/LNormal3.5-5.1[facility] Comment on above:Performed By: #### BMP #### [facility] [address] [address] [address] Ibis JimenezProtein [Mass/Vol]6.9 g/dLNormal6.4-8.2[facility] Comment on above:Performed By: #### BMP #### [facility] [address] [address] [address] Ibis JimenezSodium [Moles/Vol]141 mmol/ZGgouyg109-636OujBellevue Hospital Comment on above:Performed By: #### BMP #### [facility] [address] [address] [address] Ibis JimenezUrea nitrogen [Mass/Vol]15.0 mg/dLNormal7.0-18.0B[facility] HospitalComment on above:Performed By: #### BMP #### [facility] [address] [address] [address] Ibis JimenezUrea nitrogen/Creatinine [Mass ratio]16.9 mg/mgNormalThSelect Medical Specialty Hospital - YoungstownComment on above:Performed By: #### BMP #### [facility] [address] [address] [address] Ibis JimenezCT HEAD WO CONon [id number] HEAD WO CONEXAMINATION: CT HEAD WO CON, [...] Electronically authenticated by: NICHOLAS MARCUS Date: 2022-05-23 19:25NoCleveland ClinicCT LSPINE WO CONon [id number] LSPINE WO CONCT CERVICAL SPINE WITHOUT CONTRAST. [...] with vacuum phenomenon. Electronically authenticated by: [facility] Date: 2022-05-23 19:41NoCleveland ClinicCT HEAD WO CONon [id number] HEAD WO CONStudy: CT HEAD WO CON [...] Electronically authenticated by: ROBIN IRBY Date: 2022-03-31 22:40NormMetroHealth Main Campus Medical CenterCovid-19 PCR (CVDTBH)on [id number]-CoV-2 (COVID-19) RNA SAURABH+probe Ql (Unsp spec)Not detectedNormalNOT DETECTEDThe [facility] Comment on above:Result Comment: When [...] for this test is supported by the [place] of Health and Human Service's declaration that [...] used).Performed By: #### CVDTBH #### [facility] [address] [place] [address] [address] [address] Ibis Drake URINE PROFILEon [id number] Ql (U)NegativeNormal NEGATIVEThe [facility] CenterComment on above:Performed By: #### ACET, SALYC #### [facility] [address] [place] [address] Dr. Ibis Pratherarity (U)CLEARNormalCLEARBellevue HospitalComment on above: Performed By: #### ACET, SALYC #### [facility] [address] [place] [address] Dr. Ibis Rivera (U)YELLOWNormalYELLOWBellevue HospitalComment on above: Performed By: #### ACET, SALYC #### [facility] [address] [address] [address] Ibis Chang micrscopic examination will be performed if indicated. NormalThe [facility] CenterComment on above:Performed By: #### ACET, SALYC #### [facility] [address] [place] [address] Dr. Ibis JimenezGlucose Ql (U)NegativeNormalNEGATIVEBellevue HospitalComment on above:Performed By: #### ACET, SALYC #### [facility] [address] [place] [address] Dr. Ibis JimenezHemoglobin Ql (U)SMALLAbnormalNEGATIVEOhiohealth Arthur [facility] [place] on above:Performed By: #### ACET, SALYC #### [facility] [address] [place] [address] Dr. Ibis JimenezKetones Ql (U)NegativeNormalNEGATIVEBellevue HospitalComment on above:Performed By: #### ACET, SALYC #### [facility] [address] [place] [address] Dr. Ibis JimenezLEUKOCYTESNegativeNormalNEGATIVEBellevue HospitalCommclaren central [place] on above:Performed By: #### ACET, SALYC #### [facility] [address] [place] [address] Dr. Ibis JimenezNitrite Ql (U)NegativeNormalNEGATIVEBellevue HospitalComment on above:Performed By: #### ACET, SALYC #### [facility] [address] [place] [address] Dr. Ibis JimenezpH (U)5.5 [pH]Normal5-9The Grove HospitalComment on above: Performed By: #### ACET, SALYC #### [facility] [address] [place] [address] Dr. Ibis JimenezSPEC GRAVITY>=1.139Bgtaczep8.005-<=1.025The [facility] Comment on above:Performed By: #### ACET, SALYC #### [facility] [address] [place] [address] Dr. Ibis Quintanilla PROTEINNegativeNormalNEGATIVE/ TRACEThe [facility] Comment on above:Performed By: #### ACET, SALYC #### [facility] [address] [place] [address] Dr. Ibis Curtis MICRO INDINDICATEDBrecksville VA / Crille HospitalComment on above: Performed By: #### ACET, SALYC #### [facility] [address] [place] [address] Dr. Ibis Lorenzbilinogen Qn (U)0.2 {Dinorah'U}/dLNormal0.2 - 1.0Bellevue HospitalComment on above:Performed By: #### ACET, SALYC #### [facility] [address] [place] [address] Dr. Ibis Garcia AND B AGon [id number]zer Hospital on above:Result Comment: Negative for Flu A protein angiten. Infection due to Flu A cannot be ruled out. FluA angiten in the sample may be below the detection limit of the test.Performed By: #### AMM #### [facility] [address] [place] [address] Dr. Ibis RuizUBNEGHSEE [facility] Hospital - CincinnatiCommclaren [place] on above: Result Comment: Negative for Flu B protein antigen. Infection due to Flu B cannot be ruled out. FluB antigen in the sample may be below the detection limit of the test.Performed By: #### AMM #### [facility] [address] [place] [address] Dr. Ibis Garcia AGNegativeNormalNEGATIVE SEE COMMENTThe Grove HospitalComment on above:Performed By: #### AMM #### [facility] [address] [address] [address] Ibis Lagos AGNegativeNormalNEGATIVE SEE COMMENTThe [facility] CenterCommclaren central [place] on above:Performed By: #### AMM #### [facility] [address] [address] [address] Ibis JimenezLACTATE/LACTIC ACIDon 63-38-2531Bccxhee [Moles/Vol]1.9 mmol/L Normal0.4-1.9The [facility]opathic Hospitalment on above:Performed By: #### LACT #### [facility] [address] [place] [address] Dr. Ibis Morris MICROSCOPIC ONLYon 09-09-5361JPRKWGJSBYLCSGkytdqvrFTIR SEEN The [facility] CenterCommclaren central [place] on above:Performed By: #### ACET, SALYC #### [facility] [address] [place] [address] Dr. Ibis Pettit identified Cx Nom (U)NOT INDICATEDNoCleveland ClinicCommclaren central [place] on above:Performed By: #### ACET, SALYC #### [facility] [address] [place] [address] Dr. Ibis Baron SEENNormalNONE SEENFulton County Health Center on above:Performed By: #### ACET, SALYC #### [facility] [address] [place] [address] Dr. Ibis Oviedo LM Nom (Urine sed)NONE SEENNormalNONE SEENFulton County Health Center on above:Performed By: #### ACET, SALYC #### [facility] [address] [place] [address] Dr. Ibis Davisthelial cells LM Ql (Urine sed)RARENormalNONE SEEN /RAREThe [facility] on above:Performed By: #### ACET, SALYC #### [facility] [address] [place] [address] Dr. Ibis GallegosCOUSTRACEAbnormalNONE SEENThe Alejandra HospitalComment on above:Performed By: #### ACET, SALYC #### [facility] [address] [place] [address] Dr. Ibis BurrLskieJJH2-0Jvbhss0-7Uat [facility] Osteopathic Hospitalment on above:Performed By: #### ACET, SALYC #### [facility] [address] [place] [address] Dr. Ibis JimenezWBCNONE SEENNormalNONE SEENThe [facility] CenterComment on above: Performed By: #### ACET, SALYC #### [facility] [address] [place] [address] Dr. Ibis JimenezAMMONIAon [id number] (P) [Moles/Vol]31 umol/XOhzksx91-30 The [facility] on above:Performed By: #### AMM #### [facility] [address] [place] [address] Dr. Ibis Alexis AUTO DIFFon [id number] #0.0 103/ulNormal0.0-0.1The [facility] CenterComment on above:Performed By: #### AMM #### [facility] [address] [place] [address] Dr. Ibis JimenezBasophils/100 WBC (Bld)0.4 %Normal0.2-2.0[facility] Comment on above:Performed By: #### AMM #### [facility] [address] [place] [address] Dr. Ibis Acevedo #0.5 103/ulNormal0.0-0.7The [facility] on above: Performed By: #### AMM #### [facility] [address] [place] [address] Dr. Ibis Rojasosinophils/100 WBC (Bld)6.4 %Normal0.9-7.0The [facility] Comment on above:Performed By: #### AMM #### [facility] [address] [place] [address] Dr. Ibis Rojasrythrocyte distribution width (RBC) [Ratio]12.8 %Dfnkqv97.0-15.0 The [facility] CenterComment on above:Performed By: #### AMM #### [facility] [address] [place] [address] Dr. Ibis JimenezHematocrit (Bld) [Volume fraction]36.6 %Tydtif88.0-48.0The [facility] CenterComment on above:Performed By: #### AMM #### [facility] [address] [place] [address] Dr. Ibis JimenezHemoglobin (Bld) [Mass/Vol]12.5 g/wMYonvkn14.0-16.0The [facility] CenterComment on above:Performed By: #### AMM #### [facility] [address] [place] [address] Dr. Ibis Soto #0.02 10e3/ulNormal0.00-0.03The [facility] CenterComment on above:Performed By: #### AMM #### [facility] [address] [place] [address] Dr. Ibis Soto %0.3 %Normal0.0-0.5The [facility] CenterComment on above: Performed By: #### AMM #### [facility] [address] [place] [address] Dr. Ibis Monsalve #2.0 103/ulNormal1.2-3.8The [facility] CenterComment on above:Performed By: #### AMM #### [facility] [address] [place] [address] Dr. Ibis Brennerhocytes/100 WBC (Bld)25.0 %Rjloda85.5-60.0The [facility] CenterComment on above:Performed By: #### AMM #### [facility] [address] [place] [address] Dr. Ibis NewtonUAL DIFF REQNONormalThe [facility] CenterComment on above: Performed By: #### AMM #### [facility] [address] [place] [address] Dr. Ibis Irby (RBC) [Entitic mass]29.5 vhSdmfwl28.7-34.0The [facility] CenterComment on above:Performed By: #### AMM #### [facility] [address] [place] [address] Dr. Ibis Frank (RBC) [Mass/Vol]34.2 g/qLOofrhy04.9-35.2The [facility] CenterComment on above:Performed By: #### AMM #### [facility] [address] [place] [address] Dr. Ibis FrankV (RBC) [Entitic vol]86.3 uJJdarwi56.0-99.0The [facility] CenterComment on above:Performed By: #### AMM #### [facility] [address] [place] [address] Dr. Ibis Magallanes #0.4 103/ulNormal0.3-0.8The [facility] CenterComment on above:Performed By: #### AMM #### [facility] [address] [place] [address] Dr. Ibis Barbaocytes/100 WBC (Bld)5.6 %Normal1.7-12.0The [facility] Comment on above:Performed By: #### AMM #### [facility] [address] [place] [address] Dr. Ibis Schultz #4.9 103/ulNormal1.4-6.5The [facility] CenterComment on above:Performed By: #### AMM #### [facility] [address] [place] [address] Dr. Ibis Hiutrophils/100 WBC (Bld)62.3 %Npwfua16.0-75.0The [facility] CenterComment on above:Performed By: #### AMM #### [facility] [address] [place] [address] Dr. Ibis Olsenlet mean volume (Bld) [Entitic vol]9.5 fLNormal9.5-13.5The Grove HospitalComment on above:Performed By: #### AMM #### [facility] [address] [place] [address] Dr. Ibis JimenezPLT246 103/gqVfvach486-013Axb [facility] CenterComment on above: Performed By: #### AMM #### [facility] [address] [place] [address] Dr. Ibis JimenezRBC4.24 106/ulNormal4.20-5.40The [facility] CenterComment on above:Performed By: #### AMM #### [facility] [address] [place] [address] Dr. Ibis JimenezWBC7.8 103/ulNormal4.0-11.0The [facility] CenterComment on above: Performed By: #### AMM #### [facility] [address] [place] [address] Dr. Ibis Barrios BLOODon 81-38-9067Gvwuehkkljr examination of blood, cultureCulture Observations: NO GROWTH AT 5 DAYS.NormalThe [facility] CenterComment on above:Performed By: #### BLDCX2 #### [facility] [address] [place] [address] Dr. Ibis JimenezMicroscopic examination of blood, cultureCulture Observations: NO GROWTH AT 5 DAYS.NormalThe [facility] CenterComment on above:Performed By: #### BMP #### [facility] [address] [place] [address] Dr. Ibis JimenezLACTATE/LACTIC ACIDon 83-81-3208Bqxomjc [Moles/Vol]2.8 mmol/L Critically high0.4-1.9The [facility] CenterComment on above:Performed By: #### CVDTBH #### [facility] [address] [place] [address] Dr. Ibis Charles 14(COMP METB)on 34-26-5607Gjznhkv [Mass/Vol]3.4 g/dLNormal 3.4-5.0The [facility] CenterComment on above:Performed By: #### BMP #### [facility] [address] [place] [address] Dr. Ibis JimenezAlbumin/Globulin [Mass ratio]1.2 {ratio}NormalThe [facility] CenterComment on above:Performed By: #### BMP #### [facility] [address] [place] [address] Dr. Ibis EspinozaP [Catalytic activity/Vol]85 U/BJftkrt16-216Bjb [facility] CenterComment on above:Performed By: #### BMP #### [facility] [address] [place] [address] Dr. Ibis EspinozaT [Catalytic activity/Vol]18 U/DBobrch22-97Ide [facility] CenterComment on above:Performed By: #### BMP #### [facility] [address] [address] [place] [address] Dr. Ibis Santoson gap [Moles/Vol]13.2 mmol/LNormalThe [facility] Comment on above:Performed By: #### BMP #### [facility] [address] [place] [address] Dr. Ibis JimenezAST [Catalytic activity/Vol]11 U/LCritically [id number] [facility] CenterComment on above:Performed By: #### BMP #### [facility] [address] [place] [address] Dr. Ibis JimenezBilirubin [Mass/Vol]0.2 mg/dLNormal0.2-1.0The [facility] Comment on above:Performed By: #### BMP #### [facility] [address] [place] [address] Dr. Ibis JimenezCalcium [Mass/Vol]8.6 mg/dLNormal8.5-10.1The [facility] Comment on above:Performed By: #### BMP #### [facility] [address] [place] [address] Dr. Ibis JimenezChloride [Moles/Vol]105 mmol/LMtenju20-281Lgd [facility] Comment on above:Performed By: #### BMP #### [facility] [address] [place] [address] Dr. Ibis JimenezCO2 [Moles/Vol]25.1 mmol/LIwyiep14.0-32.0The [facility] Comment on above:Performed By: #### BMP #### [facility] [address] [place] [address] Dr. Ibis JimenezCreatinine [Mass/Vol]0.80 mg/dLNormal0.55-1.02The [facility] CenterComment on above:Performed By: #### BMP #### [facility] [address] [address] [address] Ibis RojasGFR-AF SAMMARINESE>60Normal>=60The [facility] CenterComment on above:Performed By: #### BMP #### [facility] [address] [place] [address] Dr. Ibis RojasGFR-NON AF SAMMARINESE>60Normal>=60The [facility] CenterComment on above:Performed By: #### BMP #### [facility] [address] [place] [address] Dr. Ibis JimenezGlobulin (S) [Mass/Vol]2.9 g/dLNormalThe [facility] CenterComment on above:Performed By: #### BMP #### [facility] [address] [place] [address] Dr. Ibis JimenezGlucose [Mass/Vol]99 mg/tHKazczw46-567FtyBellevue Hospital Comment on above:Performed By: #### BMP #### [facility] [address] [place] [address] Dr. Ibis JimenezPotassium [Moles/Vol]3.3 mmol/LCritically low3.5-5.1The [facility] CenterComment on above:Performed By: #### BMP #### [facility] [address] [place] [address] Dr. Ibis JimenezProtein [Mass/Vol]6.3 g/dLCritically low6.4-8.2The [facility] CenterComment on above:Performed By: #### BMP #### [facility] [address] [place] [address] Dr. Ibis JimenezSodium [Moles/Vol]140 mmol/UUnsbsr549-236ZocBellevue Hospital Comment on above:Performed By: #### BMP #### [facility] [address] [place] [address] Dr. Ibis Lama nitrogen [Mass/Vol]10.0 mg/dLNormal7.0-18.0[facility] HospitalComment on above:Performed By: #### BMP #### [facility] [address] [place] [address] Dr. Ibis Lama nitrogen/Creatinine [Mass ratio]12.5 mg/mgNormalThe [facility] CenterComment on above:Performed By: #### BMP #### [facility] [address] [place] [address] Dr. Ibis Alexis AUTO DIFFon [id number] #0.0 103/ulNormal0.0-0.1The [facility] CenterComment on above:Performed By: #### AMM #### [facility] [address] [place] [address] Dr. Ibis JimenezBasophils/100 WBC (Bld)0.3 %Normal0.2-2.0[facility] Comment on above:Performed By: #### AMM #### [facility] [address] [place] [address] Dr. Ibis Acevedo #0.2 103/ulNormal0.0-0.7The [facility] CenterComment on above: Performed By: #### AMM #### [facility] [address] [place] [address] Dr. Ibis Rojasosinophils/100 WBC (Bld)2.7 %Normal0.9-7.0The [facility] Comment on above:Performed By: #### AMM #### [facility] [address] [place] [address] Dr. Ibis Rojasrythrocyte distribution width (RBC) [Ratio]13.2 %Iekdot87.0-15.0 [facility] HospitalComment on above:Performed By: #### AMM #### [facility] [address] [place] [address] Dr. Ibis JimenezHematocrit (Bld) [Volume fraction]35.7 %Critically low36.0-48.0 The [facility] CenterComment on above:Performed By: #### AMM #### [facility] [address] [address] [address] Ibis JimenezHemoglobin (Bld) [Mass/Vol]12.2 g/pDWzphnn89.0-16.0The [facility] CenterComment on above:Performed By: #### AMM #### [facility] [address] [address] [address] Ibis JimenezIG #0.04 10e3/ulCritically high0.00-0.03The [facility] Comment on above:Performed By: #### AMM #### [facility] [address] [place] [address] Dr. Ibis Soto %0.5 %Normal0.0-0.5The [facility] CenterComment on above: Performed By: #### AMM #### [facility] [address] [place] [address] Dr. Ibis Monsalve #2.1 103/ulNormal1.2-3.8The [facility] CenterComment on above:Performed By: #### AMM #### [facility] [address] [place] [address] Dr. Ibis Vuongmphocytes/100 WBC (Bld)27.3 %Olumfn67.5-60.0The [facility] CenterComment on above:Performed By: #### AMM #### [facility] [address] [address] [address] Ibis JimenezMANUAL DIFF REQNONormalThe [facility] CenterComment on above: Performed By: #### AMM #### [facility] [address] [address] [address] Ibis Irby (RBC) [Entitic mass]29.0 nrBrwzjw48.7-34.0The [facility] CenterComment on above:Performed By: #### AMM #### [facility] [address] [address] [address] Ibis FrankHC (RBC) [Mass/Vol]34.2 g/tHWcpuvf12.9-35.2The [facility] CenterComment on above:Performed By: #### AMM #### [facility] [address] [place] [address] Dr. Ibis FrankV (RBC) [Entitic vol]84.8 vEHnfnwl54.0-99.0The [facility] CenterComment on above:Performed By: #### AMM #### [facility] [address] [place] [address] Dr. Ibis Magallanes #0.7 103/ulNormal0.3-0.8The [facility] CenterComment on above:Performed By: #### AMM #### [facility] [address] [place] [address] Dr. Ibis Barbaocytes/100 WBC (Bld)8.7 %Normal1.7-12.0The [facility] Comment on above:Performed By: #### AMM #### [facility] [address] [place] [address] Dr. Ibis Schultz #4.7 103/ulNormal1.4-6.5The [facility] CenterComment on above:Performed By: #### AMM #### [facility] [address] [place] [address] Dr. Ibis Hiutrophils/100 WBC (Bld)60.5 %Dwkkef70.0-75.0The [facility] CenterComment on above:Performed By: #### AMM #### [facility] [address] [place] [address] Dr. Ibis Olsenlet mean volume (Bld) [Entitic vol]9.6 fLNormal9.5-13.5The [facility] CenterComment on above:Performed By: #### AMM #### [facility] [address] [place] [address] Dr. Ibis JimenezPLT212 103/meUequyl335-645Zbk Alejandra HospitalComment on above: Performed By: #### AMM #### [facility] [address], [place] [address] Dr. Ibis JimenezRBC4.21 106/ulNormal4.20-5.40The [facility] on above:Performed By: #### AMM #### [facility] [address] [place], [place] [address] Dr. Ibis JimenezWBC7.7 103/ulNormal4.0-11.0The [facility] on above: Performed By: #### AMM #### [facility] [address] [address] [address] Ibis JimenezCT ABD/PELV W CONon [id number] ABD/PELV W CONEXAM: CT ABD/PELV W CON [...] Electronically authenticated by: TONY DAHL Date: 2022-01-14 20:01[facility] URINE PROFILEon [id number] Ql (U)NegativeNormal NEGATIVEBellevue HospitalComment on above:Performed By: #### ACET, SALYC #### [facility] [address] [place] [address] Dr. Ibis JimenezClarity (U)CLEARNormalCLEARBellevue HospitalComment on above: Performed By: #### ACET, SALYC #### [facility] [address] [place] [address] Dr. Ibis JimenezColor (U)LT. YELLOWNormalYELLOWBellevue HospitalComment on above:Performed By: #### ACET, SALYC #### [facility] [address] [address] [address] Ibis Chang micrscopic examination will be performed if indicated. NormalBellevue HospitalComment on above:Performed By: #### ACET, SALYC #### [facility] [address] [address] [address] Ibis JimenezGlucose Ql (U)NegativeNormalNEGATIVEBellevue HospitalComment on above:Performed By: #### ACET, SALYC #### [facility] [address] [address] [address] Ibis JimenezHemoglobin Ql (U)NegativeNormalNEGATIVEBellevue Hospital Comment on above:Performed By: #### ACET, SALYC #### [facility] [address] [address] [address] Ibis JimenezKetones Ql (U)NegativeNormalNEGATIVEBellevue HospitalComment on above:Performed By: #### ACET, SALYC #### [facility] [address] [address] [address] Ibis JimenezLEUKOCYTESTRACEAbnormalNEGATIVEBellevue HospitalComment on above:Performed By: #### ACET, SALYC #### [facility] [address] [address] [address] Ibis Avalostraldo Ql (U)NegativeNormalNEGATIVEThe [facility] CenterComment on above:Performed By: #### ACET, SALYC #### [facility] [address] [address] [address] Ibis JimenezpH (U)5.5 [pH]Normal5-9The [facility] CenterComment on above: Performed By: #### ACET, SALYC #### [facility] [address] [address] [address] Ibis JimenezSPEC GRAVITY1.186Ruthms5.005-<=1.025The [facility] CenterComment on above:Performed By: #### ACET, SALYC #### [facility] [address] [place] [address] Dr. Ibis Quintanilla PROTEINNegativeNormalNEGATIVE/ TRACEThe [facility] Comment on above:Performed By: #### ACET, SALYC #### [facility] [address] [address] [address] Ibis Curtis MICRO INDINDICATEDNormalThe [facility] CenterComment on above: Performed By: #### ACET, SALYC #### [facility] [address] [address] [address] Ibis JimenezUrobilinogen Qn (U)0.2 {Dinorah'U}/dLNormal0.2 - 1.0The [facility] CenterComment on above:Performed By: #### ACET, SALYC #### [facility] [address] [place] [address] Dr. Ibis JimenezPREGNANCY URon [id number], QUALNegativeNormalNEGATIVEThe [facility] CenterComment on above:Performed By: #### ACET, SALYC #### [facility] [address] [place] [address] Dr. Ibis JimenezPROF CHEM 8 (BAS METB)on [id number] gap [Moles/Vol]9.9 mmol/LNormalThe [facility] CenterComment on above:Performed By: #### BMP #### [facility] [address] [address] [address] Ibis JimenezCalcium [Mass/Vol]8.6 mg/dLNormal8.5-10.1The [facility] Comment on above:Performed By: #### BMP #### [facility] [address] [address] [address] Ibis JimenezChloride [Moles/Vol]105 mmol/DJheote09-634Iej [facility] Comment on above:Performed By: #### BMP #### [facility] [address] [address] [address] Ibis JimenezCO2 [Moles/Vol]27.5 mmol/KFmmkxi29.0-32.0The [facility] Comment on above:Performed By: #### BMP #### [facility] [address] [place] [address] Dr. Ibis JimenezCreatinine [Mass/Vol]0.70 mg/dLNormal0.55-1.02The [facility] CenterComment on above:Performed By: #### BMP #### [facility] [address] [place] [address] Dr. Ibis RojasGFR-AF SAMMARINESE>60Normal>=60The [facility] CenterComment on above:Performed By: #### BMP #### [facility] [address] [address] [address] Ibis RojasGFR-NON AF SAMMARINESE>60Normal>=60The [facility] CenterComment on above:Performed By: #### BMP #### [facility] [address] [address] [address] Ibis JimenezGlucose [Mass/Vol]83 mg/xBTbuejb44-238Cvd [facility] Comment on above:Performed By: #### BMP #### [facility] [address] [place] [address] Dr. Ibis JimenezPotassium [Moles/Vol]4.4 mmol/LNormal3.5-5.1[facility] Comment on above:Performed By: #### BMP #### [facility] [address] [address] [address] Ibis Guzmanum [Moles/Vol]138 mmol/XHagsyb501-142Bjv [facility] Comment on above:Performed By: #### BMP #### [facility] [address] [address] [address] Ibis JimenezUrea nitrogen [Mass/Vol]13.0 mg/dLNormal7.0-18.0The [facility] CenterComment on above:Performed By: #### BMP #### [facility] [address] [address] [address] Ibis Lama nitrogen/Creatinine [Mass ratio]18.6 mg/mgNoalThe [facility] CenterComment on above:Performed By: #### BMP #### [facility] [address] [place] [address] Dr. Ibis Morris MICROSCOPIC ONLYon [id number] SEENNormalNONE SEENBellevue HospitalComment on above:Performed By: #### ACET, SALYC #### [facility] [address] [address] [address] Ibis Pettit identified Cx Nom (U)NOT INDICATEDNoCleveland ClinicComment on above:Performed By: #### ACET, SALYC #### [facility] [address] [place] [address] Dr. Ibis Baron SEENNormalNONE SEENBellevue HospitalCommclaren [facility] [place] on above:Performed By: #### ACET, SALYC #### [facility] [address] [address] [address] Ibis Oviedo LM Nom (Urine sed)NONE SEENNormalNONE SEENBellevue HospitalCommclaren [facility] [place] on above:Performed By: #### ACET, SALYC #### [facility] [address] [address] [address] Baumann ChangEpithelial cells LM Ql (Urine sed)FEWAbnormalNONE SEEN /RAREThe [facility] CenterComment on above:Performed By: #### ACET, SALYC #### [facility] [address] [address] [address] Ibis GallegosCOUSRM SEENNormalNONE SEENThe [facility] CenterComment on above:Performed By: #### ACET, SALYC #### [facility] [address] [address] [address] Ibis JimenezRBCNONE SEENAbnormal0-2The [facility] CenterComment on above: Performed By: #### ACET, SALYC #### [facility] [address] [address] [address] Ibis HamiltonBCRM SEENNormalNONE SEENThe [facility] CenterComment on above: Performed By: #### ACET, SALYC #### [facility] [address] [place] [address] Dr. Ibis Alexis AUTO DIFFon [id number] #0.0 103/ulNormal0.0-0.1The [facility] CenterComment on above:Performed By: #### ACET, SALYC #### [facility] [address] [place] [address] Dr. Ibis Souzasophils/100 WBC (Bld)0.2 %Normal0.2-2.0The [facility] Comment on above:Performed By: #### ACET, SALYC #### [facility] [address] [place] [address] Dr. Ibis Acevedo #0.0 103/ulNormal0.0-0.7The [facility] Hospitalment on above: Performed By: #### ACET, SALYC #### [facility] [address] [place] [address] Dr. Ibis Rojasosinophils/100 WBC (Bld)0.4 %Critically low0.9-7.0The [facility] Hospitalment on above:Performed By: #### ACET, SALYC #### [facility] [address] [place] [address] Dr. Ibis Rojasrythrocyte distribution width (RBC) [Ratio]13.2 %Lkptdr65.0-15.0 The [facility] CenterComment on above:Performed By: #### ACET, SALYC #### [facility] [address] [place] [address] Dr. Ibis JimenezHematocrit (Bld) [Volume fraction]39.7 %Wxkmpo10.0-48.0The [facility] CenterComment on above:Performed By: #### ACET, SALYC #### [facility] [address] [place] [address] Dr. Ibis JimenezHemoglobin (Bld) [Mass/Vol]13.4 g/oWCfgfsn43.0-16.0The [facility] Hospitalment on above:Performed By: #### ACET, SALYC #### [facility] [address] [place] [address] Dr. Ibis Soto #0.06 10e3/ulCritically high0.00-0.03The [facility] Comment on above:Performed By: #### ACET, SALYC #### [facility] [address] [place] [address] Dr. Ibis Soto %0.5 %Normal0.0-0.5The [facility] CenterComment on above: Performed By: #### ACET, SALYC #### [facility] [address] [place] [address] Dr. Ibis Monsalve #2.6 103/ulNormal1.2-3.8The [facility] CenterComment on above:Performed By: #### ACET, SALYC #### [facility] [address] [place] [address] Dr. Ibis Brennerhocytes/100 WBC (Bld)23.8 %Dwkkee19.5-60.0The [facility] CenterComment on above:Performed By: #### ACET, SALYC #### [facility] [address] [place] [address] Dr. Ibis NewtonUAL DIFF REQNONormalThe [facility] CenterComment on above: Performed By: #### ACET, SALYC #### [facility] [address] [place] [address] Dr. Ibis Frank (RBC) [Entitic mass]28.8 fyVytoab23.7-34.0The [facility] CenterComment on above:Performed By: #### ACET, SALYC #### [facility] [address] [place] [address] Dr. Ibis Frank (RBC) [Mass/Vol]33.8 g/hOVzxgil07.9-35.2The [facility] HospitalComment on above:Performed By: #### ACET, SALYC #### [facility] [address] [place] [address] Dr. Ibis JimenezINTEGRIS [facility] [place] (RBC) [Entitic vol]85.2 jITzjqzt97.0-99.0The [facility] CenterComment on above:Performed By: #### ACET, SALYC #### [facility] [address] [place] [address] Dr. Ibis Magallanes #0.8 103/ulNormal0.3-0.8The [facility] CenterComment on above:Performed By: #### ACET, SALYC #### [facility] [address] [place] [address] Dr. Ibis Barbaocytes/100 WBC (Bld)7.7 %Normal1.7-12.0[facility] Comment on above:Performed By: #### ACET, SALYC #### [facility] [address] [place] [address] Dr. Ibis Schultz #7.4 103/ulCritically high1.4-6.5The [facility] Comment on above:Performed By: #### ACET, SALYC #### [facility] [address] [place] [address] Dr. Ibis Hiutrophils/100 WBC (Bld)67.4 %Omdokb24.0-75.0The [facility] CenterComment on above:Performed By: #### ACET, SALYC #### [facility] [address] [place] [address] Dr. Ibis Olsenlet mean volume (Bld) [Entitic vol]9.8 fLNormal9.5-13.5The [facility] CenterComment on above:Performed By: #### ACET, SALYC #### [facility] [address] [place] [address] Dr. Ibis JimenezPLT261 103/heHhhbvx925-219Mdv [facility] CenterComment on above: Performed By: #### ACET, SALYC #### [facility] [address] [place] [address] Dr. Ibis JimenezRBC4.66 106/ulNormal4.20-5.40The [facility] CenterComment on above:Performed By: #### ACET, SALYC #### [facility] [address] [place] [address] Dr. Ibis JimenezWBC10.9 103/ulNormal4.0-11.0The [facility] CenterComment on above:Performed By: #### ACET, SALYC #### [facility] [address] [place] [address] Dr. Ibis JimenezPROF CHEM 8 (BAS METB)on [id number] gap [Moles/Vol]14.1 mmol/LNormalBellevue HospitalComment on above:Performed By: #### BMP #### [facility] [address] [place] [address] Dr. Ibis JimenezCalcium [Mass/Vol]8.5 mg/dLNormal8.5-10.1[facility]vue [facility] Comment on above:Performed By: #### BMP #### [facility] [address] [place] [address] Dr. Ibis JimenezChloride [Moles/Vol]103 mmol/LJxfsed52-097LpfBellevue Hospital Comment on above:Performed By: #### BMP #### [facility] [address] [place] [address] Dr. Ibis JimenezCO2 [Moles/Vol]22.5 mmol/NZrgucd33.0-32.0The [facility] Comment on above:Performed By: #### BMP #### [facility] [address] [place] [address] Dr. Yilan ChangCreatinine [Mass/Vol]0.64 mg/dLNormal0.55-1.02The [facility] CenterComment on above:Performed By: #### BMP #### [facility] [address] [place] [address] Dr. Ibis RojasGFR-AF SAMMARINESE>60Normal>=60The [facility] CenterComment on above:Performed By: #### BMP #### [facility] [address] [place] [address] Dr. Ibis RojasGFR-NON AF SAMMARINESE>60Normal>=60The [facility] CenterComment on above:Performed By: #### BMP #### [facility] [address] [place] [address] Dr. Ibis JimenezGlucose [Mass/Vol]141 mg/dLCritically eaqm05-463Plq [facility] CenterComment on above:Performed By: #### BMP #### [facility] [address] [place] [address] Dr. Ibis JimenezPotassium [Moles/Vol]3.6 mmol/LNormal3.5-5.1The [facility] Comment on above:Performed By: #### BMP #### [facility] [address] [place] [address] Dr. Ibis JimenezSodium [Moles/Vol]136 mmol/FQqpnoo684-963Sya [facility] Comment on above:Performed By: #### BMP #### [facility] [address] [place] [address] Dr. Ibis JimenezUrea nitrogen [Mass/Vol]16.0 mg/dLNormal7.0-18.0The [facility] CenterComment on above:Performed By: #### BMP #### [facility] [address] [place] [address] Dr. Ibis Lama nitrogen/Creatinine [Mass ratio]25.0 mg/mgNormalThe [facility] CenterComment on above:Performed By: #### BMP #### [facility] [address] [place] [address] Dr. Ibis GonzalesC AUTO DIFFon [id number] #0.0 103/ulNormal0.0-0.1The [facility] CenterComment on above:Performed By: #### ACET, SALYC #### [facility] [address] [place] [address] Dr. Ibis JimenezBasophils/100 WBC (Bld)0.4 %Normal0.2-2.0The [facility] Comment on above:Performed By: #### ACET, SALYC #### [facility] [address] [place] [address] Dr. Ibis Acevedo #0.2 103/ulNormal0.0-0.7The [facility] CenterComment on above: Performed By: #### ACET, SALYC #### [facility] [address] [place] [address] Dr. Ibis Rojasosinophils/100 WBC (Bld)4.1 %Normal0.9-7.0The [facility] Comment on above:Performed By: #### ACET, SALYC #### [facility] [address] [place] [address] Dr. Ibis Rojasrythrocyte distribution width (RBC) [Ratio]13.2 %Ehaxyr43.0-15.0 The [facility] CenterComment on above:Performed By: #### ACET, SALYC #### [facility] [address] [place] [address] Dr. Ibis JimenezHematocrit (Bld) [Volume fraction]34.3 %Critically low36.0-48.0 The [facility] CenterComment on above:Performed By: #### ACET, SALYC #### [facility] [address] [place] [address] Dr. Ibis JimenezHemoglobin (Bld) [Mass/Vol]11.5 g/dLCritically low12.0-16.0The [facility] CenterComment on above:Performed By: #### ACET, SALYC #### [facility] [address] [place] [address] Dr. Ibis Soto #0.01 10e3/ulNormal0.00-0.03The [facility] CenterComment on above:Performed By: #### ACET, SALYC #### [facility] [address] [place] [address] Dr. Ibis Soto %0.2 %Normal0.0-0.5The [facility] CenterComment on above: Performed By: #### ACET, SALYC #### [facility] [address] [place] [address] Dr. Ibis Monsalve #1.5 103/ulNormal1.2-3.8The [facility] CenterComment on above:Performed By: #### ACET, SALYC #### [facility] [address] [place] [address] Dr. Ibis Brennerhocytes/100 WBC (Bld)26.4 %Msmsoc85.5-60.0The [facility] CenterComment on above:Performed By: #### ACET, SALYC #### [facility] [address] [place] [address] Dr. Ibis Viera DIFF REQNONormalThe [facility] CenterComment on above: Performed By: #### ACET, SALYC #### [facility] [address] [place] [address] Dr. Ibis Irby (RBC) [Entitic mass]28.8 acGogctr52.7-34.0The [facility] Hospitalment on above:Performed By: #### ACET, SALYC #### [facility] [address] [place] [address] Dr. Ibis Frank (RBC) [Mass/Vol]33.5 g/wKBreoyy09.9-35.2The [facility] CenterComment on above:Performed By: #### ACET, SALYC #### [facility] [address] [place] [address] Dr. Ibis Dan (RBC) [Entitic vol]86.0 lIAmuosf09.0-99.0The [facility] CenterComment on above:Performed By: #### ACET, SALYC #### [facility] [address] [place] [address] Dr. Ibis Magallanes #0.5 103/ulNormal0.3-0.8The [facility] CenterComment on above:Performed By: #### ACET, SALYC #### [facility] [address] [place] [address] Dr. Ibis Barbaocytes/100 WBC (Bld)8.2 %Normal1.7-12.0The [facility] Comment on above:Performed By: #### ACET, SALYC #### [facility] [address] [place] [address] Dr. Ibis Schultz #3.4 103/ulNormal1.4-6.5The [facility] CenterComment on above:Performed By: #### ACET, SALYC #### [facility] [address] [place] [address] Dr. Ibis Hiutrophils/100 WBC (Bld)60.7 %Jegfny55.0-75.0The [facility] CenterComment on above:Performed By: #### ACET, SALYC #### [facility] [address] [place] [address] Dr. Ibis Olsenlet mean volume (Bld) [Entitic vol]9.9 fLNormal9.5-13.5The [facility] CenterComment on above:Performed By: #### ACET, SALYC #### [facility] [address] [place] [address] Dr. Ibis JimenezPLT222 103/fzJpndjf156-797Jlm [facility] CenterComment on above: Performed By: #### ACET, SALYC #### [facility] [address] [place] [address] Dr. Ibis JimenezRBC3.99 106/ulCritically low4.20-5.40The [facility] CenterComment on above:Performed By: #### ACET, SALYC #### [facility] [address] [place] [address] Dr. Ibis JimenezWBC5.6 103/ulNormal4.0-11.0The [facility] CenterComment on above: Performed By: #### ACET, SALYC #### [facility] [address] [address] [address] Ibis JimenezPROF CHEM 8 (BAS METB)on 42-54-5289Lrlas gap [Moles/Vol]10.5 mmol/LNormalThe [facility] CenterComment on above:Performed By: #### BMP #### [facility] [address] [address] [address] Ibis JimenezCalcium [Mass/Vol]8.8 mg/dLNormal8.5-10.1The [facility] Comment on above:Performed By: #### BMP #### [facility] [address] [address] [address] Ibis JimenezChloride [Moles/Vol]105 mmol/SChosbj47-306Pxj [facility] Comment on above:Performed By: #### BMP #### [facility] [address] [place] [address] Dr. Ibis JimenezCO2 [Moles/Vol]24.9 mmol/AQaomdq35.0-32.0[facility] Comment on above:Performed By: #### BMP #### [facility] [address] [address] [address] Ibis JimenezCreatinine [Mass/Vol]0.71 mg/dLNormal0.55-1.02The [facility] CenterComment on above:Performed By: #### BMP #### [facility] [address] [address] [address] Ibis RojasGFR-AF SAMMARINESE>60Normal>=60The [facility] CenterComment on above:Performed By: #### BMP #### [facility] [address] [address] [address] Ibis RojasGFR-NON AF SAMMARINESE>60Normal>=60The [facility] CenterComment on above:Performed By: #### BMP #### [facility] [address] [address] [address] Ibis JimenezGlucose [Mass/Vol]103 mg/tQRsbqgf27-894Sps [facility] Comment on above:Performed By: #### BMP #### [facility] [address] [address] [address] Ibis JimenezPotassium [Moles/Vol]3.4 mmol/LCritically low3.5-5.1[facility] HospitalComment on above:Performed By: #### BMP #### [facility] [address] [address] [address] Ibis JimenezSodium [Moles/Vol]137 mmol/IRrelhk247-488Btw [facility] Comment on above:Performed By: #### BMP #### [facility] [address] [address] [address] Ibis JimenezUrea nitrogen [Mass/Vol]17.0 mg/dLNormal7.0-18.0[facility] HospitalComment on above:Performed By: #### BMP #### [facility] [address] [place] [address] Dr. Ibis Lama nitrogen/Creatinine [Mass ratio]23.9 mg/mgNormalThe [facility] CenterComment on above:Performed By: #### BMP #### [facility] [address] [place] [address] Dr. Ibis JimenezBasic Metab w/rfx MGon 10-20-2021(cont.)[facility] HospitalComment on above:Result Comment: Average GFR for 20-29 years old: 116 mL/min/1.73sq m Chronic Kidney Disease: <60 mL/min/1.73sq m Kidney failure: <15 mL/min/1.73sq m eGFR calculated using average adult body mass. Additional eGFR calculator available at: http://www.[employer].com/multiple_crcl_2012.htmPerformed By: #### BMPX #### [facility] [address] [place], [place] [id number] Civil Lawyer: Shira Holden gap [Moles/Vol]10 mmol/LNormal9-17[facility] ClinicComment on above:Performed By: #### BMPX #### [facility] [address] [place] [address] Civil Lawyer: CLARK Holdenalcium [Mass/Vol]7.8 mg/dLLow8.6-10.4[facility] ClinicComment on above:Performed By: #### BMPX #### [address] [address] Civil Lawyer: CLARK Holdenhloride [Moles/Vol]109 mmol/MNcrl60-781LsxqmCleveland ClinicComment on above:Performed By: #### BMPX #### [address] [address] Civil Lawyer: Tavon Nicole MDCO2 [Moles/Vol]20 mmol/RAhyjts96-90ByzvkCleveland ClinicComment on above:Performed By: #### BMPX #### [address] [address] Civil Lawyer: CLARK Holdenreatinine [Mass/Vol]0.45 mg/dLLow0.50-0.90[facility] ClinicComment on above:Performed By: #### BMPX #### [address] [address] Civil Lawyer: Tavon Nicole MDGFR, Amer>60Normal>60[facility] ClinicComment on above:Performed By: #### BMPX #### [address] [address] Civil Lawyer: Tavon Nicole MDGFR,non Amer>60Normal>60[facility] ClinicComment on above:Performed By: #### BMPX #### [address] [address] Civil Lawyer: Tavon Nicole MDGlucose [Mass/Vol]84 mg/sGDuofmx38-04UltldMission Valley Medical CenterComment on above:Performed By: #### BMPX #### [facility] [address] [place] [address] Civil Lawyer: MAGED Holdenotassium [Moles/Vol]4.1 mmol/LNormal3.7-5.3 [facility] ClinicComment on above:Result Comment: SPECIMEN SLIGHTLY HEMOLYZED, RESULTS MAY BE ADVERSELY AFFECTED.Performed By: #### BMPX #### [facility] [address] [place] [address] Civil Lawyer: ALEX Holdenodium [Moles/Vol]139 mmol/OXvoqeg184-210AesubCleveland ClinicComment on above:Performed By: #### BMPX #### [facility] [address] [place] [address] Civil Lawyer: Tavon Nicole MDUrea nitrogen [Mass/Vol]8 mg/dLNormal6-20[facility] ClinicComment on above:Performed By: #### BMPX #### [facility] [address] [place] [address] Civil Lawyer: Tavon Nicole MDBaflaget memorial hospital Metabolic Panel w/ Reflex to MGon [id number] gap [Moles/Vol]10 mmol/L9 - 17 mmol/LBON [facility] Calcium [Mass/Vol]7.8 mg/dLLow8.6 - 10.4 mg/dLBON [facility] [employer] HEALTHChloride [Moles/Vol]109 mmol/LHigh98 - 107 mmol/LBON SECOURS [employer] HEALTHCO2 [Moles/Vol] 20 mmol/L20 - 31 mmol/LBON SECOURS [facility] SobresalenCreatinine [Mass/Vol]0.45 mg/dL Low0.5 - 0.9 mg/dLBON SECPinpoint MD HEALTHGFR >6060 - PINF mL/minBON SECOURS [employer] HEALTHGFR Non->6060 - PINF mL/minBON SECJRKICKZGFR/1.73 sq M.predicted MDRD (S/P/Bld) [Vol rate/Area]BON [facility]INERS HOSPITALComment on above:Average GFR for 20-29 years old: 116 mL/min/1.73sq m Chronic Kidney Disease: <60 mL/min/1.73sq m Kidney failure: <15 mL/min/1.73sq m eGFR calculated using average adult body mass. Additional eGFR calculator available at: http://www.Rosalind/multiple_crcl_2012.htm Glucose [Mass/Vol]84 mg/dL70 - 99 mg/dLBON [facility]IN[facility]RINERS HOSPITALInterpretation and review of laboratory resultsAbnormalBON [facility]IN[facility] HOSPITALPotassium [Moles/Vol]4.1 mmol/L3.7 - 5.3 mmol/LBON [facility]RINERS HOSPITALComment on above: SPECIMEN SLIGHTLY HEMOLYZED, RESULTS MAY BE ADVERSELY AFFECTED.Sodium [Moles/Vol]139 mmol/L135 - 144 mmol/LBON [facility] SHRINERS HOSPITALUrea nitrogen (BldV) [Mass/Vol]8 mg/dL6 - 20 mg/dLBON SECASPIRUS MEDFORD HOSPITALCBC with Auto Differentialon [id number] Eos #0.15BON SECOURS [facility]OSPITALAbsolute Immature GranulocyteBON SECWVUMEDICINE BARNESVILLE HOSPITALAbsolute Lymph #1.48 BON [facility] HOSPITALAbsolute [place] #0.28B[facility] HOSPITALBasophils (Bld) [#/Vol]0.03 10*3/uLBON SECWVUMEDICINE BARNESVILLE HOSPITALBasophils/100 WBC (Bld)1 %0 - 2 %[facility]BERLAND HOSPITALEosinophils/100 WBC (Bld)3 %1 - 4 %[facility] HOSPITALHematocrit (Bld) [Volume fraction]35.5 %Low36.3 - 47.1 %[facility] HOSPITALHemoglobin (Bld) [Mass/Vol]11.3 g/dLLow11.9 - 15.1 g/dLBON SECWVUMEDICINE BARNESVILLE HOSPITALImmature granulocytes/100 WBC (Bld)0 %0BON [facility] Interpretation and review of laboratory resultsAbnormalCUMBERLAND HOSPITAL Lymphocytes/100 WBC (Bld)34 %24 - 43 %BON [facility] SHRINERS HOSPITALMCH (RBC) [Entitic mass]27.9 pg25.2 - 33.5 pgBON [facility] HOSPITALHC (RBC) [Mass/Vol]31.8 g/dL28.4 - 34.8 g/dLBON SECSELECT [facility]ICAL [facility] (RBC) [Entitic vol]87.7 fL82.6 - 102.9 fLCUMBERLAND HOSPITALMonocytes/100 WBC (Bld)6 %3 - 12 %[facility] HOSPITALNRBC Automated0.00.0 per 100 WBCCUMBERLAND HOSPITALPlatelet distribution width (Bld) [Ratio]12.9 %11.8 - 14.4 %[facility] Platelets (Bld) [#/Vol]See Reflexed IPF ResultCUMBERLAND HOSPITALRBC (Bld) [#/Vol]4.05 10*6/uL3.95 - 5.11 m/uLCUMBERLAND HOSPITALSegmented neutrophils/100 WBC (Bld)55 %36 - 65 %CUMBERLAND HOSPITALSegs Absolute2.42 BON [facility] SHRINERS HOSPITALWBC (Bld) [#/Vol]4.4 10*3/uLBON [facility] HOSPITALCBC with Diffon [id number]. Basophil0.03 k/uLNormal 0.00-0.20[facility] ClinicComment on above:Performed By: #### CDP, IPF #### [facility] [address] [place] [address] Civil Lawyer: Wendy Holden.Imm.Granulocyte<0.27Qmfkkd4.00-0.30[facility] ClinicComment on above:Performed By: #### CDP, IPF #### [facility] [address] [place] [address] Civil Lawyer: Wendy Holden.Neutrophil (Seg)2.42 k/uLNormal1.50-8.10 [facility] ClinicComment on above:Performed By: #### CDP, IPF #### [facility] [address] [place] [address] Civil Lawyer: Tavon Nicole MDBasophils/100 WBC (Bld)1 %Normal0-2MPalo Verde HospitalComment on above:Performed By: #### CDP, IPF #### [address] [address] Civil Lawyer: Tavon Nicole MDEosinophils (Bld) [#/Vol]0.15 10*3/uLNormal 0.00-0.44[facility] ClinicComment on above:Performed By: #### CDP, IPF #### [address] [address] Civil Lawyer: Tavon Nicole MDEosinophils/100 WBC (Bld)3 %Normal1-4[facility] ClinicComment on above:Performed By: #### CDP, IPF #### [address] [address] Civil Lawyer: Tavon Nicole MDImmature granulocytes/100 WBC (Bld)0 %Normal0 [facility] ClinicComment on above:Performed By: #### CDP, IPF #### [address] [address] Civil Lawyer: Antonia Holdenmphocytes (Bld) [#/Vol]1.48 10*3/uLNormal 1.10-3.70[facility] ClinicComment on above:Performed By: #### CDP, IPF #### [address] [address] Civil Lawyer: Antonia Holdenmphocytes/100 WBC (Bld)34 %Hpmrfk38-75VwznyCleveland ClinicComment on above:Performed By: #### CDP, IPF #### [address] [address] Civil Lawyer: JUNAID Holdenonocytes (Bld) [#/Vol]0.28 10*3/uLNormal 0.10-1.20[facility] ClinicComment on above:Performed By: #### CDP, IPF #### [address] [address] Civil Lawyer: JUNAID Holdenonocytes/100 WBC (Bld)6 %Normal3-12[facility] ClinicComment on above:Performed By: #### CDP, IPF #### [address] [address] Civil Lawyer: Tavon Nicole MDNeutrophil (Seg)55 %Oluzik54-27HbmjnCleveland ClinicComment on above:Performed By: #### CDP, IPF #### [address] [address] Civil Lawyer: Tavon Nicole MDErythrocyte distribution width (RBC) [Ratio]12.9 %Biernx55.8-14.4[facility] ClinicComment on above:Performed By: #### GAMALIEL, IPF #### [address] [address] Civil Lawyer: Tavon Nicole MDHematocrit (Bld) [Volume fraction]35.5 %Low 36.3-47.1MPalo Verde HospitalComment on above:Performed By: #### CDP, IPF #### [address] [address] Civil Lawyer: Tavon Nicole MDHemoglobin (Bld) [Mass/Vol]11.3 g/dLLow11.9-15.1 [facility] ClinicComment on above:Performed By: #### CDP, IPF #### [address] [address] Civil Lawyer: JUNAID HoldenCH (RBC) [Entitic mass]27.9 lqKbszes03.2-33.5 [facility] ClinicComment on above:Performed By: #### CDP, IPF #### [address] [address] Civil Lawyer: JUNAID HoldenCHC (RBC) [Mass/Vol]31.8 g/bLXsuzvh50.4-34.8 [facility] ClinicComment on above:Performed By: #### CDP, IPF #### [address] [address] Civil Lawyer: JUNAID HoldenCV (RBC) [Entitic vol]87.7 wCQrnoex88.6-102.9 [facility] ClinicComment on above:Performed By: #### CDP, IPF #### [address] [address] Civil Lawyer: Tavon Nicole MDNRBC Automated0.0 per 100 WBCNormal0.0[facility] ClinicComment on above:Performed By: #### CDP, IPF #### [address] [address] Civil Lawyer: Kaylee Holdentelet CountSee Reflexed IPF ResultNormal 138-453C[facility] ClinicComment on above:Performed By: #### CDP, IPF #### [address] [address] Civil Lawyer: FRANCISCO HoldenBC (Bld) [#/Vol]4.05 10*6/uLNormal3.95-5.11 [facility] ClinicComment on above:Performed By: #### CDP, IPF #### [address] [address] Civil Lawyer: JESSE HoldenBC (Bld) [#/Vol]4.4 10*3/uLNormal3.5-11.3[facility] Medical CenterComment on above:Performed By: #### CDP, IPF #### [facility] [address] [place] [address] Civil Lawyer: JUSTIN Holden video monitoringon [id number] Owais, MD 10/20/2021 12:11 PM Referring physician: Chris Blanchard APRN Date:10/20/2021 Start Time:10/19/2021 @1258 End Time: 10/20/2021 @ 1200 Indication Patient with recurrent events Introduction This continuous video-EEG was acquired using a Joberator workstation at 256 samples/s. Electrodes were placed [...] Board Certified. Neurology Board Certified. Electronically Signed [employer] Phone: eeg video monitoringOrdered By: Raiza Land on [id number] [employer] Phone: Immature Platelet Fractionon 49-08-8555Otehseus, FluorescencePlatelet clumps present, count appears adequate.Organic SocietyPLT, Immature Fract.on 44-93-4110Ufikvxtp, Fluoresc.Platelet clumps present, count appears adequate.Accwlv994-760UiuxcCleveland ClinicComment on above:Performed By: #### CDP, IPF #### [address] [address] Civil Lawyer: MAGED HoldenROLACTINon 32-78-9104Itjoripcf30.7 ng/mL Critically high4.8-23.3TWright-Patterson Medical CenterComment on above:Performed By: #### CVDTBH #### [facility] [address] [place], [place] [address] Dr. Ibis Nelson 74-25-5611Efsdlcywcfl distribution width (RBC) [Ratio]12.9 %Nbjoip72.8-14.4[facility] ClinicComment on above:Performed By: #### TROPI, LACTIC, CMPX, CBC #### [address] [address] Civil Lawyer: Tavon Nicole MDHematocrit (Bld) [Volume fraction]31.5 %Low 36.3-47.1MPalo Verde HospitalComment on above:Performed By: #### TROPI, LACTIC, CMPX, CBC #### [facility] [address] [place] [address] Civil Lawyer: Tavon Nicole MDHemoglobin (Bld) [Mass/Vol]10.8 g/dLLow11.9-15.1 [facility] ClinicComment on above:Performed By: #### TROPI, LACTIC, CMPX, CBC #### [facility] [address] [place] [address] Civil Lawyer: JUNAID HoldenCH (RBC) [Entitic mass]29.1 nsRrhytj15.2-33.5 [facility] ClinicComment on above:Performed By: #### TROPI, LACTIC, CMPX, CBC #### [address] [address] Civil Lawyer: JUNAID HoldenCHC (RBC) [Mass/Vol]34.3 g/bVOjypee44.4-34.8 [facility] ClinicComment on above:Performed By: #### TROPI, LACTIC, CMPX, CBC #### [address] [address] Civil Lawyer: JUNAID HoldenCV (RBC) [Entitic vol]84.9 dGHkonpg12.6-102.9 [facility] ClinicComment on above:Performed By: #### TROPI, LACTIC, CMPX, CBC #### [address] [address] Civil Lawyer: NIKO HoldenBC Automated0.0 per 100 WBCNormal0.0[facility] ClinicComment on above:Performed By: #### TROPI, LACTIC, CMPX, CBC #### [address] [address] Civil Lawyer: Greta Holden mean volume (Bld) [Entitic vol]9.8 fL Normal8.1-13.5[facility] ClinicComment on above:Performed By: #### TROPI, LACTIC, CMPX, CBC #### [address] [address] Civil Lawyer: Kaylee Holdenteyanni (Bld) [#/Vol]281 10*3/fPPwrtzf923-857 [facility] ClinicComment on above:Performed By: #### TROPI, LACTIC, CMPX, CBC #### [address] [address] Civil Lawyer: Tavon Nicole MDRBC (Bld) [#/Vol]3.71 10*6/uLLow3.95-5.11[facility] ClinicComment on above:Performed By: #### TROPI, LACTIC, CMPX, CBC #### [facility] [address] [place], [place] [id number] Civil Lawyer: Tavon Nicole MDWBC (Bld) [#/Vol]5.0 10*3/uLNormal3.5-11.3[facility] Medical CenterComment on above:Performed By: #### TROPI, LACTIC, CMPX, CBC #### [facility] [address] [place], [place] [id number] Civil Lawyer: Tavon Nicole MDHematocrit (Bld) [Volume fraction]31.5 %Low36.3 - 47.1 %CUMBERLAND HOSPITALHemoglobin (Bld) [Mass/Vol]10.8 g/dLLow11.9 - 15.1 g/dLBON CINCINNATI [facility]RINERS HOSPITALInterpretation and review of laboratory results AbnormalBON [facility] HOSPITALH (RBC) [Entitic mass]29.1 pg25.2 - 33.5 pgBON [facility]ER[facility] HOSPITALHC (RBC) [Mass/Vol]34.3 g/dL28.4 - 34.8 g/dLBON [facility] (RBC) [Entitic vol]84.9 fL82.6 - 102.9 fLCUMBERLAND HOSPITALNRBC Automated0.00.0 per 100 WBCBON CINCINNATI SHRINERS HOSPITALPlatelet distribution width (Bld) [Ratio]12.9 %11.8 - 14.4 %[facility] Platelet mean volume (Bld) [Entitic vol]9.8 fL8.1 - 13.5 fLBON [facility] HEALTHPlatelets (Bld) [#/Vol]281 10*3/uLBON SECWVUMEDICINE BARNESVILLE HOSPITALRBC (Bld) [#/Vol]3.71 10*6/uLLow3.95 - 5.11 m/uLBON SECWVUMEDICINE BARNESVILLE HOSPITALWBC (Bld) [#/Vol] 5.0 10*3/uLBON [facility] HEALTHBON SECWVUMEDICINE BARNESVILLE HOSPITALCBC AUTO DIFFon [id number] #0.2 103/ulNormal0.0-0.7The [facility] CenterComment on above: Performed By: #### AMM #### [facility] Laboratory [address] [place] [address] Dr. Ibis Rojasosinophils/100 WBC (Bld)3.9 %Normal0.9-7.0The [facility] Comment on above:Performed By: #### AMM #### [facility] Laboratory [address] [place] [address] Dr. Ibis Rojasrythrocyte distribution width (RBC) [Ratio]13.1 %Xsdwbz65.0-15.0 The [facility] CenterComment on above:Performed By: #### AMM #### [facility] Laboratory [address] [place] [address] Dr. Ibis JimenezHematocrit (Bld) [Volume fraction]33.4 %Critically low36.0-48.0 The [facility] CenterComment on above:Performed By: #### AMM #### [facility] Laboratory [address] [place] [address] Dr. Ibis JimenezHemoglobin (Bld) [Mass/Vol]11.1 g/dLCritically low12.0-16.0The [facility] CenterComment on above:Performed By: #### AMM #### [facility] Laboratory [address] [place] [address] Dr. Ibis VuongMPH #1.2 103/ulNormal1.2-3.8The [facility] CenterComment on above:Performed By: #### AMM #### [facility] Laboratory [address] [place] [address] Dr. Ibis JimenezLymphocytes/100 WBC (Bld)25.9 %Nvdihj35.5-60.0The [facility] CenterComment on above:Performed By: #### AMM #### [facility] Laboratory [address] [place] [address] Dr. Ibis JimenezMCHC (RBC) [Mass/Vol]33.2 g/aIWoodzk15.9-35.2The [facility] CenterComment on above:Performed By: #### AMM #### [facility] Laboratory [address] [address] [address] Ibis Dan (RBC) [Entitic vol]85.9 gHTrmcxj94.0-99.0The [facility] CenterComment on above:Performed By: #### AMM #### [facility] Laboratory [address] [place] [address] Dr. Ibis Barbaocytes/100 WBC (Bld)7.7 %Normal1.7-12.0The [facility] Comment on above:Performed By: #### AMM #### [facility] Laboratory [address] [place] [address] Dr. Ibis Schultz #2.9 103/ulNormal1.4-6.5The [facility] CenterComment on above:Performed By: #### AMM #### [facility] Laboratory [address] [place] [address] Dr. Ibis Hiutrophils/100 WBC (Bld)61.5 %Uaaxhg78.0-75.0The [facility] CenterComment on above:Performed By: #### AMM #### [facility] Laboratory [address] [place] [address] Dr. Ibis JimenezPLT264 103/qbRorpog250-181Oow [facility] CenterComment on above: Performed By: #### AMM #### [facility] Laboratory [address] [place] [address] Dr. Ibis JimenezRBC3.89 106/ulCritically low4.20-5.40The [facility] CenterComment on above:Performed By: #### AMM #### [facility] Laboratory [address] [place] [address] Dr. Ibis JimenezWBC4.7 103/ulNormal4.0-11.0The [facility] Hospitalment on above: Performed By: #### AMM #### [facility] Laboratory [address] [place] [address] Dr. Ibis Escamilla #0.0 103/ulNormal0.0-0.1The Alejandra HospitalComment on above:Performed By: #### AMM #### [facility] Laboratory [address] [place] [address] Dr. Ibis JimenezPerformed By: #### CVDTBH #### [facility] [address] [place] [address] Dr. Ibis JimenezBasophils/100 WBC (Bld)0.6 %Normal0.2-2.0[facility] Comment on above:Performed By: #### AMM #### [facility] Laboratory [address] [place] [address] Dr. Ibis JimenezPerformed By: #### CVDTBH #### [facility] [address] [place] [address] Dr. Ibis Acevedo #0.3 103/ulNormal0.0-0.7The [facility] CenterComment on above: Performed By: #### CVDTBH #### [facility] [address] [place] [address] Dr. Ibis Rojasosinophils/100 WBC (Bld)5.0 %Normal0.9-7.0[facility] Comment on above:Performed By: #### CVDTBH #### [facility] [address] [place] [address] Dr. Ibis Rojasrythrocyte distribution width (RBC) [Ratio]12.8 %Jziqjk71.0-15.0 The [facility] CenterComment on above:Performed By: #### CVDTBH #### [facility] Laboratory [address] [place] [address] Dr. Ibis JimenezHematocrit (Bld) [Volume fraction]38.0 %Vgkdbe79.0-48.0[facility] HospitalComment on above:Performed By: #### CVDTBH #### [facility] [address] [place] [address] Dr. Ibis JimenezHemoglobin (Bld) [Mass/Vol]12.7 g/yFMjkjxg65.0-16.0The [facility] CenterComment on above:Performed By: #### CVDTBH #### [facility] Laboratory [address] [place], [place] [id number] Dr. Ibis Soto #0.02 10e3/ulNormal0.00-0.03The [facility] CenterComment on above:Performed By: #### AMM #### [facility] Laboratory [address] [place] [address] Dr. Ibis Cortesformed By: #### CVDTBH #### [facility] [address] [place] [address] Dr. Ibis Soto %0.4 %Normal0.0-0.5The [facility] CenterComment on above: Performed By: #### AMM #### [facility] Laboratory [address] [place] [address] Dr. Ibis Cortesformed By: #### CVDTBH #### [facility] [address] [place] [address] Dr. Ibis Monsalve #1.7 103/ulNormal1.2-3.8The [facility] CenterComment on above:Performed By: #### CVDTBH #### [facility] Laboratory [address] [place] [address] Dr. Ibis Brennerhocytes/100 WBC (Bld)30.7 %Ypnusb14.5-60.0The [facility] on above:Performed By: #### CVDTBH #### [facility] Laboratory [address] [place] [address] Dr. Ibis NewtonUAL DIFF REQNONormalThe [facility] CenterComment on above: Performed By: #### AMM #### [facility] Laboratory [address] [place] [address] Dr. Ibis Cortesformed By: #### CVDTBH #### [facility] [address] [place] [address] Dr. Ibis Irby (RBC) [Entitic mass]28.5 fqTgdreh41.7-34.0The [facility] CenterComment on above:Performed By: #### AMM #### [facility] Laboratory [address] [place] [address] Dr. Ibis Cortesformed By: #### CVDTBH #### [facility] [address] [place] [address] Dr. Ibis Frank (RBC) [Mass/Vol]33.4 g/iXOqvkhv59.9-35.2The [facility] CenterComment on above:Performed By: #### CVDTBH #### [facility] Laboratory [address] [place] [address] Dr. Ibis Frank (RBC) [Entitic vol]85.2 hCPwhgft30.0-99.0The [facility] HospitalComment on above:Performed By: #### CVDTBH #### [facility] Laboratory [address] [place] [address] Dr. Ibis Magallanes #0.4 103/ulNormal0.3-0.8The [facility] CenterComment on above:Performed By: #### AMM #### [facility] Laboratory [address] [place] [address] Dr. Ibis JimenezPerformed By: #### CVDTBH #### [facility] [address] [place] [address] Dr. Ibis Barbaocytes/100 WBC (Bld)8.1 %Normal1.7-12.0The [facility] Comment on above:Performed By: #### CVDTBH #### [facility] Laboratory [address] [place] [address] Dr. Ibis Schultz #3.0 103/ulNormal1.4-6.5The [facility] CenterComment on above:Performed By: #### CVDTBH #### [facility] Laboratory [address] [place] [address] Dr. Ibis Hiutrophils/100 WBC (Bld)55.2 %Qayahq91.0-75.0The [facility] CenterComment on above:Performed By: #### CVDTBH #### [facility] Laboratory [address] [place] [address] Dr. Ibis Olsenlet mean volume (Bld) [Entitic vol]9.5 fLNormal9.5-13.5The [facility] CenterComment on above:Performed By: #### AMM #### [facility] [address] [place] [address] Dr. Ibis JimenezPerformed By: #### CVDTBH #### [facility] [address] [place] [address] Dr. Ibis JimenezPLT343 103/oxSmwixf283-442Sen [facility] CenterComment on above: Performed By: #### CVDTBH #### [facility] Laboratory [address] [place] [address] Dr. Ibis JimenezRBC4.46 106/ulNormal4.20-5.40The [facility] CenterComment on above:Performed By: #### CVDTBH #### [facility] Laboratory [address] [place] [address] Dr. Ibis JimenezWBC5.4 103/ulNormal4.0-11.0The [facility] CenterComment on above: Performed By: #### CVDTBH #### [facility] Laboratory [address] [place] [address] Dr. Ibis JimenezCT HEAD WO CONon [id number] HEAD WO CONEXAMINATION: CT HEAD WO CON [...] Electronically authenticated by: LOPEZ REYNOLDS Date: 2021-10-19 07:31[facility] HospitalCom Metabolic Pr/rfx MGon 10-19-2021(cont.)NormalMercy Riverside County Regional Medical CenterComment on above:Result Comment: Average GFR for 20-29 years old: 116 mL/min/1.73sq m Chronic Kidney Disease: <60 mL/min/1.73sq m Kidney failure: <15 mL/min/1.73sq m eGFR calculated using average adult body mass. Additional eGFR calculator available at: http://www.Rosalind/multiple_crcl_2012.htmPerformed By: #### TROPI, LACTIC, CMPX, CBC #### [place] [address] Civil Lawyer: Tavon Nicole MDAlbumin [Mass/Vol]3.5 g/dLNormal3.5-5.2MPalo Verde HospitalComment on above:Performed By: #### TROPI, LACTIC, CMPX, CBC #### [place] [address] Civil Lawyer: Tavon Nicole MDAlbumin/Glob Ratio1.1Bsuimo2.0-2.5[facility] ClinicComment on above:Performed By: #### TROPI, LACTIC, CMPX, CBC #### [place] [address] Civil Lawyer: Tavon Nicole MDAlkaline Phos69 U/SKluqyt67-623TuaneCleveland ClinicComment on above:Performed By: #### TROPI, LACTIC, CMPX, CBC #### [place] [address] Civil Lawyer: Tavon Nicole MDALT [Catalytic activity/Vol]15 U/LNormal5-33 [facility] ClinicComment on above:Performed By: #### TROPI, LACTIC, CMPX, CBC #### [place] [address] Civil Lawyer: Tavon Nicole MDAnion gap [Moles/Vol]13 mmol/LNormal9-17[facility] ClinicComment on above:Performed By: #### TROPI, LACTIC, CMPX, CBC #### [facility] [address] [place] [address] Civil Lawyer: Tavon Nicole MDAST [Catalytic activity/Vol]12 U/LNormal<32C[facility] ClinicComment on above:Performed By: #### TROPI, LACTIC, CMPX, CBC #### [address] [address] Civil Lawyer: Tavon Nicole MDBilirubin [Mass/Vol]0.24 mg/dLLow0.3-1.2MPalo Verde HospitalComment on above:Performed By: #### TROPI, LACTIC, CMPX, CBC #### [address] [address] Civil Lawyer: Tavon Nicole MDCalcium [Mass/Vol]8.1 mg/dLLow8.6-10.4C[facility] ClinicComment on above:Performed By: #### TROPI, LACTIC, CMPX, CBC #### [address] [address] Civil Lawyer: Tavon Nicole MDChloride [Moles/Vol]107 mmol/DHeroct84-915LnrpmCleveland ClinicComment on above:Performed By: #### TROPI, LACTIC, CMPX, CBC #### [address] [address] Civil Lawyer: Tavon Nicole MDCO2 [Moles/Vol]19 mmol/KIpq34-84ZesuaCleveland ClinicComment on above:Performed By: #### TROPI, LACTIC, CMPX, CBC #### [address] [address] Civil Lawyer: Tavon Nicole MDCreatinine [Mass/Vol]0.53 mg/dLNormal0.50-0.90 [facility] ClinicComment on above:Performed By: #### TROPI, LACTIC, CMPX, CBC #### [facility] [address] [place] [address] Civil Lawyer: Tavon Nicole MDGFR, Amer>60Normal>60C[facility] ClinicComment on above:Performed By: #### TROPI, LACTIC, CMPX, CBC #### [facility] [address] [place] [address] Civil Lawyer: DEJA Holden,non Amer>60Normal>60MerDoctors Medical CenterComment on above:Performed By: #### TROPI, LACTIC, CMPX, CBC #### [facility] [address] [place] [address] Civil Lawyer: Tavon Nicole MDGlucose [Mass/Vol]81 mg/xYUjfuqa59-58WcefjPalo Verde HospitalComment on above:Performed By: #### TROPI, LACTIC, CMPX, CBC #### [address] [address] Civil Lawyer: Tavon Nicole MDPotassium [Moles/Vol]3.9 mmol/LNormal3.7-5.3 [facility] ClinicComment on above:Performed By: #### TROPI, LACTIC, CMPX, CBC #### [address] [address] Civil Lawyer: Tavon Nicole MDProtein [Mass/Vol]6.0 g/dLLow6.4-8.3MPalo Verde HospitalComment on above:Performed By: #### TROPI, LACTIC, CMPX, CBC #### [address] [address] Civil Lawyer: Tavon Nicole MDSodium [Moles/Vol]139 mmol/VPpbgqm139-497OneibCleveland ClinicComment on above:Performed By: #### TROPI, LACTIC, CMPX, CBC #### [facility] [address] [place] [address] Civil Lawyer: Tavon Nicole MDUrea nitrogen [Mass/Vol]10 mg/dLNormal6-20C[facility] ClinicComment on above:Performed By: #### TROPI, LACTIC, CMPX, CBC #### [facility] [address] [place], [place] [id number] Civil Lawyer: CLARK Holdenomprehensive Metabolic Panel w/ Reflex to MGon [id number] [Mass/Vol]3.5 g/dL3.5 - 5.2 g/dLBON [facility] [...] MERCY HEALTHGFR/1.73 sq M.predicted MDRD (S/P/Bld) [Vol rate/Area][facility] on above:Average GFR for 20-29 years old: 116 mL/min/1.73sq m Chronic Kidney Disease: <60 mL/min/1.73sq m Kidney failure: <15 mL/min/1.73sq m eGFR calculated using average adult body mass. Additional eGFR calculator available at: http://www.Rosalind/HealthFleet.com_crcl_2012.htm Glucose [Mass/Vol]81 mg/dL70 - 99 mg/dLBON CINCINNATI [facility]RINERS HOSPITALInterpretation and review of laboratory resultsAbnormalBON CINCINNATI SHRINERS HOSPITALPotassium [Moles/Vol]3.9 mmol/L3.7 - 5.3 mmol/LBON CINCINNATI SHRINERS HOSPITALSodium [Moles/Vol] 139 mmol/L135 - 144 mmol/LBON CINCINNATI SHRINERS HOSPITALUrea nitrogen (BldV) [Mass/Vol]10 mg/dL6 - 20 mg/dLBON [facility] Covid-19 PCR (CVDTBH)on [id number]-CoV-2 (COVID-19) RNA SAURABH+probe Ql (Unsp spec)Not detectedNormalNOT DETECTEDThe [facility] on above:Result Comment: When diagnostic [...] for this test is supported by the [place] of Health and Human Service's declaration that [...] used).Performed By: #### CVDTBH #### [facility] [address] [place] [address] Dr. Ibis Cristina SCREEN RAPID (URINE)on [id number] [facility] on above:Performed By: #### BMP #### [facility] [address] [place] [address] Dr. Ibis JimenezBARPositiveAbnormalNEGHocking Valley Community Hospital on above: Performed By: #### BMP #### [facility] [address] [place] [address] Dr. Ibis JimenezBUPNegativeNormalNEGHocking Valley Community Hospital on above: Performed By: #### BMP #### [facility] [address] [place] [address] Dr. Ibis JimenezBZOPositiveMulticare HealthNEGHocking Valley Community Hospital on above: Performed By: #### BMP #### [facility] [address] [place] [address] Dr. Ibis aDnielCNegativeNormalNEGHocking Valley Community Hospital on above: Performed By: #### BMP #### [facility] [address] [place] [address] Dr. Ibis YanSelect Medical Specialty Hospital - CantonCommclaren central [place] on above: Result Comment: AMP (Amphetamine): 500ng/mL, BAR (Barbituates): 200 ng/mL, BZO (Benzodiazepines): 150 ng/mL, BUP (Buprenorphine): 10 ng/mL, SEMAJ (Cocaine): 150 ng/mL, mAMP (Methamphetamine): 500 ng/mL, MTD (Methadone): 200 ng/mL, OPI (Opiates): 100 ng/mL, OXY (Oxycodone): 100 ng/mL, PCP (Phencyclidine): 25 ng/mL, PPX (Propoxyphene): 300 ng/mL, THC (Cannabinoids): 50 ng/mL, TCA (Trycyclic Antidepressants): 300 ng/mLPerformed By: #### BMP #### [facility] [address] [place] [address] Dr. Yilan ChangDRUG CUT HEADERDRUG CLASS TEST SYSTEM CUT-OFF CONCENTRATIONS ARE FOLLOWS:NormalThe [facility] CenterComment on above:Performed By: #### BMP #### [facility] [address] [place] [address] Dr. Ibis JimenezmAMPNegativeNormalNEGATIVEBellevue HospitalCommclaren central [place] on above: Performed By: #### BMP #### [facility] [address] [address] [address] Ibis JimenezMTDNegativeNormalNEGATIVEBellevue HospitalCommclaren central [place] on above: Performed By: #### BMP #### [facility] [address] [address] [address] Ibis JimenezOPIPositiveAbnormalNEGATIVEBellevue HospitalCommclaren central [place] on above: Performed By: #### BMP #### [facility] [address] [place] [address] Dr. Ibis JimenezOXYPositiveAbnormalNEGATIVEBellevue HospitalCommclaren central [place] on above: Performed By: #### BMP #### [facility] [address] [place] [address] Dr. Ibis JimenezPCPNegativeNormalNEGATIVEBellevue HospitalCommclaren central [place] on above: Performed By: #### BMP #### [facility] [address] [place] [address] Dr. Ibis JimenezPPXNegativeNormalNEGATIVEFulton County Health Center on above: Performed By: #### BMP #### [facility] [address] [place] [address] Dr. Ibis JimenezTCANegativeNormalNEGATIVEBellevue HospitalCommclaren central [place] on above: Performed By: #### BMP #### [facility] [address] [address] [address] Ibis JimenezTHCNegativeNormalNEGATIVEFulton County Health Center on above: Performed By: #### BMP #### [facility] [address] [place] [address] Dr. Baumann ChangER URINE PROFILEon [id number] Ql (U)NegativeNormal NEGATIVEUniversity Hospitals Beach[facility] Medical Center HospitalComment on above:Performed By: #### BMP #### [facility] [address] [address] [address] Ibis JimenezClarity (U)CLEARNormalCLEARUniversity Hospitals [facility] Center HospitalComment on above: Performed By: #### BMP #### [facility] [address] [address] [address] Ibis JimenezColor (U)YELLOWNormalYELLOWUniversity Hospitals [facility] Center HospitalComment on above: Performed By: #### BMP #### [facility] [address] [address] [address] Ibis Chang micrscopic examination will be performed if indicated. NormalThe Grove HospitalComment on above:Performed By: #### BMP #### [facility] [address] [address] [address] Ibis JimenezGlucose Ql (U)NegativeNormalNEGATIVEUniversity Hospitals [facility] Center HospitalComment on above:Performed By: #### BMP #### [facility] [address] [address] [address] Ibis JimenezHemoglobin Ql (U)TRACE-INTACTAbnormalNEGATIVEBellevue HospitalComment on above:Performed By: #### BMP #### [facility] [address] [address] [address] Ibis JimenezKetones Ql (U)NegativeNormalNEGATIVEBellevue HospitalComment on above:Performed By: #### BMP #### [facility] [address] [address] [address] Ibis JimenezLEUKOCYTESNegativeNormalNEGATIVEBellevue HospitalCommclaren central [place] on above:Performed By: #### BMP #### [facility] [address] [address] [address] Ibis JimenezNitrite Ql (U)NegativeNormalNEGATIVEBellevue HospitalComment on above:Performed By: #### BMP #### [facility] [address] [address] [address] Ibis JimenezpH (U)5.5 [pH]Normal5-9B[facility] HospitalComment on above: Performed By: #### BMP #### [facility] [address] [address] [address] Ibis JimenezSPEC GRAVITY>=1.989Fdifxczu5.005-<=1.025The [facility] Comment on above:Performed By: #### BMP #### [facility] [address] [address] [address] Ibis Quintanilla PROTEINNegativeNormalNEGATIVE/ TRACEThe [facility] Comment on above:Performed By: #### BMP #### [facility] [address] [address] [address] Ibis Curtis MICRO INDINDICATEDNormalThSelect Medical Specialty Hospital - YoungstownComment on above: Performed By: #### BMP #### [facility] [address] [place] [address] Dr. Ibis Lorenzbilinogen Qn (U)0.2 {Dinorah'U}/dLNormal0.2 - 1.0The [facility] CenterComment on above:Performed By: #### BMP #### [facility] [address] [address] [address] Ibis JimenezLACTATE/LACTIC ACIDon [id number] [Moles/Vol]1.2 mmol/L Normal0.4-1.9B[facility]vue HospitalComment on above:Performed By: #### AMM #### [facility] [address] [place] [address] Dr. Ibis JimenezLactic Acidon [id number] Acid,Whole Bl0.9 mmol/LNormal 0.7-2.1Mer[facility] County [facility] Medical CenterComment on above:Performed By: #### TROPI, LACTIC, CMPX, CBC #### [facility] [place] [address] Civil Lawyer: Tavon Nicole MDLactic Acid, Whole Blood0.9 mmol/L0.7 - 2.1 mmol/LBON [facility] 31-24-6851Doazfzdfc (Bld) [#/Vol]NegativeNormalNEGATIVEThe [facility] Beachwood Medical CenterComment on above: Performed By: #### MONO #### [facility] [address] [address] [address] Ibis JimenezMRI BRAIN W WO CONTRASTon 26-10-1024THX BRAIN W WO CONTRAST EXAMINATION: MRI OF [...] by: Carlos Marks DO 10/19/21 Final resultNormalMercy Riverside County Regional Medical CenterUnremarkable MR brain. [facility] RIS CONSOLIDATEDEXAMINATION: MRI OF THE BRAIN [...] The soft tissues demonstrate no acute abnormality. [facility] Carlos Dumont DO - 10/19/2021 EXAMINATION: [...] no acute abnormality. IMPRESSION: Unremarkable MR brain. [employer] Phone: radiology Study observation (narrative)[employer] Phone: MRI BRAIN W WO CONTRASTOrdered By: Carlos Marks on [id number] [employer] Phone: PH VENOUS BLOODon [id number] PPAVET20.6 mmHg Critically low40.0-52.0The [facility] CenterComment on above:Performed By: #### BMP #### [facility] [address] [place] [address] Dr. Ibis JimenezpH VENOUS7.252Ssjbdo6.330-7.430The [facility] CenterComment on above:Performed By: #### BMP #### [facility] [address] [place] [address] Dr. Ibis JimenezPROF CHEM 8 (BAS METB)on 13-00-6921Csqud gap [Moles/Vol]11.9 mmol/LNormalThe [facility] CenterComment on above:Performed By: #### MONO #### [facility] [address] [place] [address] Dr. Ibis JimenezCalcium [Mass/Vol]9.1 mg/dLNormal8.5-10.1The [facility] Comment on above:Performed By: #### MONO #### [facility] [address] [place] [address] Dr. Ibis JimenezChloride [Moles/Vol]104 mmol/TZytwpg10-386Mdk [facility] Comment on above:Performed By: #### MONO #### [facility] [address] [place] [address] Dr. Ibis JimenezCO2 [Moles/Vol]26.7 mmol/WItvtuj44.0-32.0The [facility] Comment on above:Performed By: #### MONO #### [facility] [address] [place] [address] Dr. Ibis JimenezCreatinine [Mass/Vol]0.78 mg/dLNormal0.55-1.02The [facility] CenterComment on above:Performed By: #### MONO #### [facility] [address] [place] [address] Dr. Ibis RojasGFR-AF SAMMARINESE>60Normal>=60The [facility] CenterComment on above:Performed By: #### MONO #### [facility] [address] [place] [address] Dr. Ibis RojasGFR-NON AF SAMMARINESE>60Normal>=60B[facility] HospitalComment on above:Performed By: #### MONO #### [facility] [address] [address] [address] Ibis JimenezGlucose [Mass/Vol]96 mg/vLJibrfq88-663QywBellevue Hospital Comment on above:Performed By: #### MONO #### [facility] [address] [address] [address] Ibis JimenezPotassium [Moles/Vol]3.6 mmol/LNormal3.5-5.1[facility] Comment on above:Performed By: #### MONO #### [facility] [address] [address] [address] Ibis JimenezSodium [Moles/Vol]139 mmol/PGwjvkw212-120Ojr [facility] Comment on above:Performed By: #### MONO #### [facility] [address] [address] [address] Ibis JimenezUrea nitrogen [Mass/Vol]14.0 mg/dLNormal7.0-18.0[facility] HospitalComment on above:Performed By: #### MONO #### [facility] [address] [address] [address] Ibis Lama nitrogen/Creatinine [Mass ratio]17.9 mg/mgNormalThe [facility] CenterComment on above:Performed By: #### MONO #### [facility] [address] [address] [address] Ibis Wang 27-31-1076JCK5.389 uIU/mLNormal0.358-3.740B[facility] HospitalComment on above:Performed By: #### ACET, SALYC #### [facility] [address] [address] [address] Ibis Zacarias 70-74-1909Kgsjxokk, High Sens<7Gcsjqh7-01RhpoqCleveland ClinicComment on above:Result Comment: High Sensitivity Troponin values cannot be compared with other Troponin methodologies. Patients with high levels of Biotin oral intake (i.e >5mg/day) may have falsely decreased Troponin levels. Samples collected within 8 hours of biotin intake may require additional information for diagnosis.Performed By: #### TROPI, LACTIC, CMPX, CBC #### [facility] [address] [place] [address] Civil Lawyer: Geraldo Holden, High Sensitivityng/L0 - 14 ng/LBON [facility] on above: High Sensitivity Troponin values cannot be compared with other Troponin methodologies. Patients with high levels of Biotin oral intake (i.e >5mg/day) may have falsely decreased Troponin levels. Samples collected within 8 hours of biotin intake may require additional information for diagnosis. [facility]ITALURINE MICROSCOPIC ONLYon [id number] NONE SEENBellevue HospitalCommclaren [place] on above:Performed By: #### BMP #### [facility] [address] [place] [address] Dr. Ibis Pettit identified Cx Nom (U)NOT INDICATEDNormalThSelect Medical Specialty Hospital - YoungstownCommclaren [place] on above:Performed By: #### BMP #### [facility] [address] [place] [address] Dr. Ibis Baron SEENNormalNONE [facility] on above:Performed By: #### BMP #### [facility] [address] [place] [address] Dr. Ibis Oviedo LM Nom (Urine sed)NONE SEENNormalNONE SEENBellevue HospitalCommclaren central [place] on above:Performed By: #### BMP #### [facility] [address] [place] [address] Dr. Ibis Rojaspithelial cells LM Ql (Urine sed)RARENormalNONE SEEN /RAREFulton County Health Center on above:Performed By: #### BMP #### [facility] [address] [place] [address] Dr. Ibis GramajoGEAbnormalNONE SEENFulton County Health Center on above:Performed By: #### BMP #### [facility] [address] [place] [address] Dr. Ibis JimenezAgrutYBM5-5Hyfobbgt9-5Cuu [facility] CenterComment on above:Performed By: #### BMP #### [facility] [address] [address] [address] Ibis JimenezWBC0-2AbnormalNONE SEENThe [facility] Medical CenterComment on above: Performed By: #### BMP #### [facility] [address] [address] [address] Ibis JimenezCT ABD/PELVIS WO CONon [id number] ABD/PELVIS WO CONIndication: Pelvic pain status post [...] Electronically authenticated by: JASS LAURENT Date: 2021-10-06 20:08[facility] URINE PROFILEon 30-36-5420Utkbbvklk Ql (U)NegativeNormal NEGATIVEBellevue HospitalComment on above:Performed By: #### MONO #### [facility] [address] [place] [address] Dr. Ibis Sage (U)CLEARNormalCLEARBellevue HospitalComment on above: Performed By: #### MONO #### [facility] [address] [place] [address] Dr. Ibis Rivera (U)LT. YELLOWNormalYELLOWBellevue HospitalComment on above:Performed By: #### MONO #### [facility] [address] [place] [address] Dr. Ibis Chang micrscopic examination will be performed if indicated. NormalBellevue HospitalCommclaren central [place] on above:Performed By: #### MONO #### [facility] [address] [place] [address] Dr. Ibis JimenezGlucose Ql (U)NegativeNormalNEGATIVEBellevue HospitalCommclaren [place] on above:Performed By: #### MONO #### [facility] [address] [place] [address] Dr. Ibis JimenezHemoglobin Ql (U)NegativeNormalNEGATIVEOhiohealth Arthur [facility] on above:Performed By: #### MONO #### [facility] [address] [place] [address] Dr. Ibis JimenezKetones Ql (U)NegativeNormalNEGATIVEBellevue HospitalComment on above:Performed By: #### MONO #### [facility] [address] [place] [address] Dr. Ibis JimenezLEUKOCYTESNegativeNormalNEGATIVEBellevue HospitalCommclaren [place] on above:Performed By: #### MONO #### [facility] [address] [place] [address] Dr. Ibis JimenezNitrite Ql (U)NegativeNormalNEGATIVEBellevue HospitalComment on above:Performed By: #### MONO #### [facility] [address] [place] [address] Dr. Ibis JimenezpH (U)8.0 [pH]Normal5-9The [facility] CenterComment on above: Performed By: #### MONO #### [facility] [address] [place] [address] Dr. Ibis JimenezSPEC GRAVITY1.930Dkvxcd7.005-<=1.025The [facility] CenterComment on above:Performed By: #### MONO #### [facility] [address] [place] [address] Dr. Ibis Quintanilla PROTEINNegativeNormalNEGATIVE/ TRACEThe [facility] Comment on above:Performed By: #### MONO #### [facility] [address] [place] [address] Dr. Ibis Curtis MICRO INDNOT INDICATEDNormalThe [facility] CenterComment on above:Performed By: #### MONO #### [facility] [address] [place] [address] Dr. Ibis JimenezUrobilinogen Qn (U)0.2 {Dinorah'U}/dLNormal0.2 - 1.0B[facility] HospitalComment on above:Performed By: #### MONO #### [facility] [address] [place] [address] Dr. Ibis Drake URINE PROFILEon 87-72-6922Besdcdmgj Ql (U)NegativeNormal NEGATIVEBellevue HospitalComment on above:Performed By: #### CVDTBH #### [facility] [address] [place] [address] Dr. Ibis Pratherarity (U)CLEARNormalCLEARThe [facility] CenterComment on above: Performed By: #### CVDTBH #### [facility] [address] [place] [address] Dr. Ibis Rivera (U)YELLOWNormalYELLOWBellevue HospitalComment on above: Performed By: #### CVDTBH #### [facility] [address] [place] [address] Dr. Ibis Chang micrscopic examination will be performed if indicated. NormalThe [facility] CenterComment on above:Performed By: #### CVDTBH #### [facility] [address] [address] [address] Ibis JimenezGlucose Ql (U)NegativeNormalNEGATIVEBellevue HospitalComment on above:Performed By: #### CVDTBH #### [facility] [address] [address] [address] Ibis JimenezHemoglobin Ql (U)NegativeNormalNEGATIVEBellevue Hospital Comment on above:Performed By: #### CVDTBH #### [facility] [address] [place] [address] Dr. Ibis JimenezKetones Ql (U)NegativeNormalNEGATIVEBellevue HospitalComment on above:Performed By: #### CVDTBH #### [facility] [address] [place] [address] Dr. Ibis JimenezLEUKOCYTESNegativeNormalNEGATIVEBellevue HospitalComment on above:Performed By: #### CVDTBH #### [facility] [address] [place] [address] Dr. Ibis JimenezNitrite Ql (U)NegativeNormalNEGATIVEBellevue HospitalComment on above:Performed By: #### CVDTBH #### [facility] [address] [place] [address] Dr. Ibis JimenezpH (U)6.0 [pH]Normal5-9B[facility] HospitalComment on above: Performed By: #### CVDTBH #### [facility] [address] [place] [address] Dr. Ibis JimenezSPEC GRAVITY1.695Bfbhcx9.005-<=1.025The [facility] CenterComment on above:Performed By: #### CVDTBH #### [facility] [address] [place] [address] Dr. Ibis Quintanilla PROTEINNegativermalNEGATIVE/ TRACEBellevue Hospital Comment on above:Performed By: #### CVDTBH #### [facility] [address] [place] [address] Dr. Ibis Curtis MICRO INDNOT INDICATEDBrecksville VA / Crille HospitalComment on above:Performed By: #### CVDTBH #### [facility] [address] [place] [address] Dr. Ibis Ray Qn (U)0.2 {Dinorah'U}/dLNormal0.2 - 1.0The [facility] CenterComment on above:Performed By: #### CVDTBH #### [facility] [address] [place] [address] Dr. Ibis Alexis AUTO DIFFon 05-52-0988JPNF #0.0 103/ulNormal0.0-0.1The [facility] CenterComment on above:Performed By: #### BMP #### [facility] [address] [place] [address] Dr. Ibis JimenezBasophils/100 WBC (Bld)0.3 %Normal0.2-2.0[facility] Comment on above:Performed By: #### BMP #### [facility] [address] [place] [address] Dr. Ibis Acevedo #0.3 103/ulNormal0.0-0.7The [facility] CenterComment on above: Performed By: #### BMP #### [facility] [address] [place] [address] Dr. Ibis Rojasosinophils/100 WBC (Bld)4.1 %Normal0.9-7.0The [facility] Comment on above:Performed By: #### BMP #### [facility] [address] [place] [address] Dr. Ibis Rojasrythrocyte distribution width (RBC) [Ratio]13.2 %Cwewjv87.0-15.0 [facility] HospitalComment on above:Performed By: #### BMP #### [facility] [address] [place] [address] Dr. Ibis JimenezHematocrit (Bld) [Volume fraction]35.7 %Critically low36.0-48.0 The [facility] CenterComment on above:Performed By: #### BMP #### [facility] [address] [address] [address] Ibis JimenezHemoglobin (Bld) [Mass/Vol]11.6 g/dLCritically low12.0-16.0The [facility] CenterComment on above:Performed By: #### BMP #### [facility] [address] [place] [address] Dr. Ibis Soto #0.02 10e3/ulNormal0.00-0.03The [facility] CenterComment on above:Performed By: #### BMP #### [facility] [address] [place] [address] Dr. Ibis Soto %0.3 %Normal0.0-0.5The [facility] CenterComment on above: Performed By: #### BMP #### [facility] [address] [place] [address] Dr. Ibis Brenner #1.5 103/ulNormal1.2-3.8The [facility] CenterComment on above:Performed By: #### BMP #### [facility] [address] [place] [address] Dr. Ibis Brennerhocytes/100 WBC (Bld)24.3 %Pkagna14.5-60.0The [facility] CenterComment on above:Performed By: #### BMP #### [facility] [address] [place] [address] Dr. Ibis NewtonUAL DIFF REQNONormalThe [facility] CenterComment on above: Performed By: #### BMP #### [facility] [address] [place] [address] Dr. Ibis JimenezROSWELL PARK [facility] (RBC) [Entitic mass]28.9 ewPmejtf47.7-34.0The [facility] CenterComment on above:Performed By: #### BMP #### [facility] [address] [place] [address] Dr. Ibis Frank (RBC) [Mass/Vol]32.5 g/xFPwtzze12.9-35.2The [facility] CenterComment on above:Performed By: #### BMP #### [facility] [address] [address] [address] Ibis FrankV (RBC) [Entitic vol]89.0 pCBrhstk70.0-99.0The [facility] CenterComment on above:Performed By: #### BMP #### [facility] [address] [place] [address] Dr. Ibis Magallanes #0.5 103/ulNormal0.3-0.8The [facility] CenterComment on above:Performed By: #### BMP #### [facility] [address] [place] [address] Dr. Ibis Barbaocytes/100 WBC (Bld)7.3 %Normal1.7-12.0The [facility] Comment on above:Performed By: #### BMP #### [facility] [address] [place] [address] Dr. Ibis Schultz #4.0 103/ulNormal1.4-6.5The [facility] CenterComment on above:Performed By: #### BMP #### [facility] [address] [place] [address] Dr. Ibis Hiutrophils/100 WBC (Bld)63.7 %Ofdkmb44.0-75.0The [facility] CenterComment on above:Performed By: #### BMP #### [facility] [address] [place] [address] Dr. Ibis Olsenlet mean volume (Bld) [Entitic vol]9.7 fLNormal9.5-13.5The [facility] CenterComment on above:Performed By: #### BMP #### [facility] [address] [place] [address] Dr. Ibis JimenezPLT237 103/uhCogzli685-202Ktd [facility] CenterComment on above: Performed By: #### BMP #### [facility] [address] [place] [address] Dr. Ibis JimenezRBC4.01 106/ulCritically low4.20-5.40The [facility] CenterComment on above:Performed By: #### BMP #### [facility] [address] [place] [address] Dr. Ibis JimenezWBC6.3 103/ulNormal4.0-11.0The [facility] CenterComment on above: Performed By: #### BMP #### [facility] [address] [place] [address] Dr. Ibis JimenezLACTATE/LACTIC ACIDon 12-05-9048Pvamksa [Moles/Vol]1.2 mmol/L Normal0.4-1.9The [facility] CenterComment on above:Performed By: #### AMM #### [facility] [address] [place] [address] Dr. Ibis Lin 37-30-7670Auxa nitrogen [Mass/Vol]7.0 mg/dLNormal7.0-18.0 The [facility] CenterComment on above:Performed By: #### CVDTBH #### [facility] [address] [place] [address] Dr. Ibis GonzalesC AUTO DIFFon 35-80-1460KYAN #0.0 103/ulNormal0.0-0.1The [facility] CenterComment on above:Performed By: #### AMM #### [facility] [address] [place] [address] Dr. Ibis JimenezBasophils/100 WBC (Bld)0.2 %Normal0.2-2.0The [facility] Comment on above:Performed By: #### AMM #### [facility] [address] [place] [address] Dr. Ibis Acevedo #0.0 103/ulNormal0.0-0.7The [facility] CenterComment on above: Performed By: #### AMM #### [facility] [address] [place] [address] Dr. Ibis Rojasosinophils/100 WBC (Bld)0.3 %Critically low0.9-7.0The [facility] CenterComment on above:Performed By: #### AMM #### [facility] [address] [place] [address] Dr. Ibis Rojasrythrocyte distribution width (RBC) [Ratio]12.7 %Yoqtwv78.0-15.0 The [facility] CenterComment on above:Performed By: #### AMM #### [facility] [address] [place] [address] Dr. Ibis JimenezHematocrit (Bld) [Volume fraction]43.4 %Vzvqhy19.0-48.0The [facility] CenterComment on above:Performed By: #### AMM #### [facility] [address] [place] [address] Dr. Ibis JimenezHemoglobin (Bld) [Mass/Vol]14.6 g/fQQjwhzv49.0-16.0The [facility] CenterComment on above:Performed By: #### AMM #### [facility] [address] [place] [address] Dr. Ibis Soto #0.03 10e3/ulNormal0.00-0.03The [facility] CenterCommclaren [place] on above:Performed By: #### AMM #### [facility] [address] [place] [address] Dr. Ibis Soto %0.3 %Normal0.0-0.5The [facility] CenterCommclaren [place] on above: Performed By: #### AMM #### [facility] [address] [place] [address] Dr. Ibis BrennerH #1.2 103/ulNormal1.2-3.8The [facility] CenterCommclaren [place] on above:Performed By: #### AMM #### [facility] [address] [place] [address] Dr. Ibis Vuongmphocytes/100 WBC (Bld)11.6 %Critically low20.5-60.0The [facility] CenterCommclaren [place] on above:Performed By: #### AMM #### [facility] [address] [place] [address] Dr. Ibis NewtonUAL DIFF REQNONormalThe [facility] CenterComment on above: Performed By: #### AMM #### [facility] [address] [address] [address] Ibis Frank (RBC) [Entitic mass]28.5 hiSmtkbl64.7-34.0The [facility] CenterComment on above:Performed By: #### AMM #### [facility] [address] [place] [address] Dr. Ibis Frank (RBC) [Mass/Vol]33.6 g/yHIhskjc77.9-35.2The [facility] CenterComment on above:Performed By: #### AMM #### [facility] [address] [place] [address] Dr. Ibis FrankV (RBC) [Entitic vol]84.6 pZSijxda44.0-99.0The [facility] CenterComment on above:Performed By: #### AMM #### [facility] [address] [place] [address] Dr. Ibis Magallanes #0.6 103/ulNormal0.3-0.8The [facility] CenterComment on above:Performed By: #### AMM #### [facility] [address] [place] [address] Dr. Ibis Barbaocytes/100 WBC (Bld)5.9 %Normal1.7-12.0The [facility] Comment on above:Performed By: #### AMM #### [facility] [address] [place] [address] Dr. Ibis Schultz #8.2 103/ulCritically high1.4-6.5The [facility] Comment on above:Performed By: #### AMM #### [facility] [address] [place] [address] Dr. Ibis Hiutrophils/100 WBC (Bld)81.7 %Critically high43.0-75.0The [facility] CenterComment on above:Performed By: #### AMM #### [facility] [address] [place] [address] Dr. Ibis Olsenlet mean volume (Bld) [Entitic vol]9.8 fLNormal9.5-13.5The [facility] on above:Performed By: #### AMM #### [facility] [address] [place] [address] Dr. Ibis JimenezPLT264 103/jmNfrdnz845-713Lrj [facility] CenterCommclaren [place] on above: Performed By: #### AMM #### [facility] [address] [place] [address] Dr. Ibis JimenezRBC5.13 106/ulNormal4.20-5.40The [facility] CenterComment on above:Performed By: #### AMM #### [facility] [address] [place] [address] Dr. Ibis HamiltonBC10.1 103/ulNormal4.0-11.0[facility] on above:Performed By: #### AMM #### [facility] [address] [place] [address] Dr. Ibis JimenezCREATININEon 03-73-7555Lfkkltzwds [Mass/Vol]0.69 mg/dLNormal 0.55-1.02The [facility] CenterComment on above:Performed By: #### CVDTBH #### [facility] [address] [place] [address] Dr. Ibis RojasGFR-AF SAMMARINESE>60Normal>=60The [facility] CenterCommcl[facility] [place] on above:Performed By: #### CVDTBH #### [facility] [address] [place] [address] Dr. Ibis RojasGFR-NON AF SAMMARINESE>60Normal>=60The [facility] on above:Performed By: #### CVDTBH #### [facility] [address] [place] [address] Dr. Ibis GonzalesC AUTO DIFFon 12-93-7890DVSV #0.0 103/ulNormal0.0-0.1The [facility] on above:Performed By: #### AMM #### [facility] [address] [place] [address] Dr. Ibis JimenezBasophils/100 WBC (Bld)0.3 %Normal0.2-2.0The [facility] Comment on above:Performed By: #### AMM #### [facility] [address] [place] [address] Dr. Ibis Acevedo #0.1 103/ulNormal0.0-0.7The [facility] CenterComment on above: Performed By: #### AMM #### [facility] [address] [place] [address] Dr. Ibis Rojasosinophils/100 WBC (Bld)1.9 %Normal0.9-7.0The [facility] Comment on above:Performed By: #### AMM #### [facility] [address] [place] [address] Dr. Ibis Rojasrythrocyte distribution width (RBC) [Ratio]12.7 %Cwmiqh44.0-15.0 The [facility] CenterComment on above:Performed By: #### AMM #### [facility] [address] [place] [address] Dr. Ibis JimenezHematocrit (Bld) [Volume fraction]38.1 %Bjmwlm69.0-48.0The [facility] CenterComment on above:Performed By: #### AMM #### [facility] [address] [place] [address] Dr. Ibis JimenezHemoglobin (Bld) [Mass/Vol]12.7 g/cHUjqzud04.0-16.0The [facility] CenterComment on above:Performed By: #### AMM #### [facility] [address] [place] [address] Dr. Ibis Soto #0.02 10e3/ulNormal0.00-0.03The [facility] CenterComment on above:Performed By: #### AMM #### [facility] [address] [place] [address] Dr. Ibis Soto %0.3 %Normal0.0-0.5The [facility] CenterComment on above: Performed By: #### AMM #### [facility] [address] [place] [address] Dr. Ibis Monsalve #1.9 103/ulNormal1.2-3.8The [facility] CenterComment on above:Performed By: #### AMM #### [facility] [address] [place] [address] Dr. Ibis Vuongmphocytes/100 WBC (Bld)30.5 %Ztofmb36.5-60.0The [facility] CenterComment on above:Performed By: #### AMM #### [facility] [address] [place] [address] Dr. Ibis NewtonUAL DIFF REQNONormalThe [facility] CenterComment on above: Performed By: #### AMM #### [facility] [address] [place] [address] Dr. Ibis Frank (RBC) [Entitic mass]28.3 ltQfwjst20.7-34.0The [facility] CenterComment on above:Performed By: #### AMM #### [facility] [address] [place] [address] Dr. Ibis Frank (RBC) [Mass/Vol]33.3 g/xMVsgdil32.9-35.2The [facility] Hospitalment on above:Performed By: #### AMM #### [facility] [address] [place] [address] Dr. Ibis Frank (RBC) [Entitic vol]85.0 vKXrixko50.0-99.0The [facility] CenterComment on above:Performed By: #### AMM #### [facility] [address] [place] [address] Dr. Ibis Magallanes #0.3 103/ulNormal0.3-0.8The [facility] CenterComment on above:Performed By: #### AMM #### [facility] [address] [place] [address] Dr. Ibis Barbaocytes/100 WBC (Bld)5.2 %Normal1.7-12.0The [facility] Comment on above:Performed By: #### AMM #### [facility] [address] [place] [address] Dr. Ibis Schultz #3.9 103/ulNormal1.4-6.5The [facility] CenterComment on above:Performed By: #### AMM #### [facility] [address] [place] [address] Dr. Ibis Hiutrophils/100 WBC (Bld)61.8 %Wvfogj86.0-75.0The [facility] CenterComment on above:Performed By: #### AMM #### [facility] [address] [place] [address] Dr. Ibis JimenezPlatelet mean volume (Bld) [Entitic vol]9.7 fLNormal9.5-13.5The [facility] CenterComment on above:Performed By: #### AMM #### [facility] [address] [place] [address] Dr. Ibis JimenezPLT255 103/mjWtfuvd994-326Afj [facility] CenterComment on above: Performed By: #### AMM #### [facility] [address] [place] [address] Dr. Ibis JimenezRBC4.48 106/ulNormal4.20-5.40The [facility] on above:Performed By: #### AMM #### [facility] [address] [place] [address] Dr. Ibis JimenezWBC6.3 103/ulNormal4.0-11.0The [facility] CenterCommclaren [place] on above: Performed By: #### AMM #### [facility] [address] [place] [address] Dr. Ibis JimenezPREG HCG QUALon 36-74-2335VATPJPATK, QUALNegativeNormalNEGATIVE The [facility] CenterComment on above:Performed By: #### MONO #### [facility] [address] [place] [address] Dr. Ibis JimenezCovid-19 PCR (CVDTBH)on 02-31-9276RPNT-CoV-2 (COVID-19) RNA SAURABH+probe Ql (Unsp spec)Not detectedNormalNOT DETECTEDThe [facility] Comment on above:Result Comment: This test is not yet approved or cleared by the [place] FDA. When there are no FDA-approved or cleared tests available, and other criteria are met, FDA can make tests available under an emergency access mechanism called an Emergency Use Authorization (EUA). The EUA for this test is supported by the [place] of Health and Human Service's (HHS's) declaration [...] SARS-CoV-2.Performed By: #### BMP #### [facility] [address] [address] [address] Ibis JimenezTYPE AND SCREENon 30-45-5783VMLY AND SCREENNegativeNormalThe [facility] CenterComment on above:Performed By: #### BMP #### [facility] [address] [address] [address] Ibis JimenezCovid-19 PCR ([facility])on 03-93-3224CHJO-CoV-2 (COVID-19) RNA SAURABH+probe Ql (Unsp spec)Not detectedNormalNOT DETECTEDThe [facility] Comment on above:Result Comment: This test is not yet approved or cleared by the [place] FDA. When there are no FDA-approved or cleared tests available, and other criteria are met, FDA can make tests available under an emergency access mechanism called an Emergency Use Authorization (EUA). The EUA for this test is supported by the [place] of Health and Human Service's (HHS's) declaration [...] SARS-CoV-2.Performed By: #### CVDTBH #### [facility] [address] [place] [address] Dr. Ibis JimenezTYPE AND SCREENon 99-69-7804WPET AND SCREENNegativeNormalThe [facility] CenterComment on above:Performed By: #### BMP #### [facility] [address] [place] [address] Dr. Ibis JimenezCHLAMYDIA/GONOCOCCUS SAURABH (SWAB/URINE/PAPon 18-91-2371Jrciacnro trachomatis, NAANegativeNormalNegativeThe [facility] CenterComment on above: Performed By: #### ACET, SALYC #### [facility] [address] [place] [address] Dr. Ibis JimenezNeisseria gonorrhoeae, NAANegativeNormalNegativeThe [facility] CenterComment on above:Performed By: #### ACET, SALYC #### [facility] [address] [place] [address] Dr. Ibis Alexis AUTO DIFFon 34-19-1596OKBG #0.0 103/ulNormal0.0-0.1The [facility] CenterComment on above:Performed By: #### CVDTBH #### [facility] [address] [place] [address] Dr. Ibis JimenezBasophils/100 WBC (Bld)0.3 %Normal0.2-2.0The [facility] Comment on above:Performed By: #### CVDTBH #### [facility] [address] [place] [address] Dr. Baumann ChangEO #0.2 103/ulNormal0.0-0.7The [facility] CenterComment on above: Performed By: #### CVDTBH #### [facility] [address] [place] [address] Dr. Ibis Rojasosinophils/100 WBC (Bld)2.5 %Normal0.9-7.0The [facility] Comment on above:Performed By: #### CVDTBH #### [facility] [address] [place] [address] Dr. Ibis Rojasrythrocyte distribution width (RBC) [Ratio]13.0 %Iqlinm40.0-15.0 The [facility] CenterComment on above:Performed By: #### CVDTBH #### [facility] [address] [place] [address] Dr. Ibis JimenezHematocrit (Bld) [Volume fraction]38.1 %Qusemt81.0-48.0The [facility] CenterComment on above:Performed By: #### CVDTBH #### [facility] [address] [place] [address] Dr. Ibis JimenezHemoglobin (Bld) [Mass/Vol]12.8 g/sXHnjuhr16.0-16.0The [facility] CenterComment on above:Performed By: #### CVDTBH #### [facility] [address] [place] [address] Dr. Ibis Soto #0.02 10e3/ulNormal0.00-0.03The [facility] CenterComment on above:Performed By: #### CVDTBH #### [facility] [address] [place] [address] Dr. Ibis Soto %0.3 %Normal0.0-0.5The [facility] CenterComment on above: Performed By: #### CVDTBH #### [facility] [address] [place] [address] Dr. Ibis BrennerH #1.5 103/ulNormal1.2-3.8The [facility] CenterComment on above:Performed By: #### CVDTBH #### [facility] [address] [place] [address] Dr. Ibis Vuongmphocytes/100 WBC (Bld)22.5 %Urwcxi69.5-60.0The [facility] CenterComment on above:Performed By: #### CVDTBH #### [facility] [address] [place] [address] Dr. Ibis Viera DIFF REQNONormalThe [facility] CenterComment on above: Performed By: #### CVDTBH #### [facility] [address] [place] [address] Dr. Ibis Frank (RBC) [Entitic mass]28.6 qfGxcwcz32.7-34.0The [facility] CenterComment on above:Performed By: #### CVDTBH #### [facility] [address] [place] [address] Dr. Ibis Frank (RBC) [Mass/Vol]33.6 g/nBEvzuyy35.9-35.2The [facility] CenterComment on above:Performed By: #### CVDTBH #### [facility] [address] [place] [address] Dr. Ibis Dan (RBC) [Entitic vol]85.0 tRIhiqhb82.0-99.0The [facility] CenterComment on above:Performed By: #### CVDTBH #### [facility] [address] [place] [address] Dr. Ibis Magallanes #0.4 103/ulNormal0.3-0.8The [facility] CenterComment on above:Performed By: #### CVDTBH #### [facility] [address] [place] [address] Dr. Ibis Barbaocytes/100 WBC (Bld)6.3 %Normal1.7-12.0The [facility] Comment on above:Performed By: #### CVDTBH #### [facility] [address] [place] [address] Dr. Ibis Schultz #4.6 103/ulNormal1.4-6.5The [facility] CenterComment on above:Performed By: #### CVDTBH #### [facility] [address] [place] [address] Dr. Ibis Hiutrophils/100 WBC (Bld)68.1 %Saecyr50.0-75.0The [facility]ment on above:Performed By: #### CVDTBH #### [facility] [address] [place] [address] Dr. Ibis JimenezPlatelet mean volume (Bld) [Entitic vol]9.8 fLNormal9.5-13.5The [facility] CenterComment on above:Performed By: #### CVDTBH #### [facility] [address] [place] [address] Dr. Ibis JimenezPLT243 103/qvWckant850-879Nkd [facility] on above: Performed By: #### CVDTBH #### [facility] [address] [place] [address] Dr. Ibis JimenezRBC4.48 106/ulNormal4.20-5.40The [facility] on above:Performed By: #### CVDTBH #### [facility] [address] [place] [address] Dr. Ibis JimenezWBC6.7 103/ulNormal4.0-11.0The [facility] on above: Performed By: #### CVDTBH #### [facility] [address] [place] [address] Dr. Ibis JimenezCT ABD/PELVIS WO [facility]on 03-05-5952ZZ ABD/PELVIS WO CONTECHNIQUE: CT abdomen and pelvis. [...] Electronically authenticated by: NELI COTTO Date: 2021-08-14 18:00[facility] URINE PROFILEon 23-58-8768Mayscejfm Ql (U)SMALLAbnormal NEGATIVEBellevue HospitalComment on above:Performed By: #### BMP #### [facility] [address] [place] [address] Dr. Ibis Sage (U)CLEARNormalCLEARBellevue HospitalComment on above: Performed By: #### BMP #### [facility] [address] [place] [address] Dr. Ibis Rivera (U)YELLOWNormalYELLOWBellevue HospitalComment on above: Performed By: #### BMP #### [facility] [address] [place] [address] Dr. Ibis Chnag micrscopic examination will be performed if indicated. NormalBellevue HospitalComment on above:Performed By: #### BMP #### [facility] [address] [place] [address] Dr. Ibis JimenezGlucose Ql (U)NegativeNormalNEGATIVEBellevue HospitalComment on above:Performed By: #### BMP #### [facility] [address] [place] [address] Dr. Ibis JimenezHemoglobin Ql (U)SMALLAbnormalNEGATIVEBellevue Hospital Comment on above:Performed By: #### BMP #### [facility] [address] [address] [address] Ibis Baumann Ql (U)TRACEAbnormalNEGATIVEThe [facility] HospitalComment on above:Performed By: #### BMP #### [facility] [address] [place] [address] Dr. Ibis JimenezLEUKOCYTESNegativeNormalNEGATIVEThe [facility] HospitalComment on above:Performed By: #### BMP #### [facility] [address] [address] [address] Ibis Avalostrite Ql (U)NegativeNormalNEGATIVEThe Grove HospitalComment on above:Performed By: #### BMP #### [facility] [address] [place] [address] Dr. Ibis JimenezpH (U)5.5 [pH]Normal5-9The [facility] CenterComment on above: Performed By: #### BMP #### [facility] [address] [place] [address] Dr. Ibis JimenezSPEC GRAVITY>=1.880Rjvdylhx9.005-<=1.025The [facility] on above:Performed By: #### BMP #### [facility] [address] [place] [address] Dr. Ibis Quintanilla PROTEINTRACENormalNEGATIVE/ TRACEThe [facility] CenterComment on above:Performed By: #### BMP #### [facility] [address] [place] [address] Dr. Ibis Curtis MICRO INDINDICATEDNormalThe Grove HospitalComment on above: Performed By: #### BMP #### [facility] [address] [place] [address] Dr. Ibis Lorenzbilinogen Qn (U)1.0 {Dinorah'U}/dLNormal0.2 - 1.0The [facility] CenterComment on above:Performed By: #### BMP #### [facility] [address] [place] [address] Dr. Ibis JimenezPREGNANCY URon 36-95-0551WDZJNCQOJ, QUALNegativeNormalNEGATIVEThe [facility] CenterComment on above:Performed By: #### BMP #### [facility] [address] [address] [address] Ibis ChristinaF CHEM 8 (BAS METB)on 51-59-9909Xyytq gap [Moles/Vol]15.3 mmol/LNormalThe [facility] CenterComment on above:Performed By: #### BMP #### [facility] [address] [place] [address] Dr. Ibis JimenezCalcium [Mass/Vol]8.4 mg/dLCritically low8.5-10.1The [facility] CenterComment on above:Performed By: #### BMP #### [facility] [address] [place] [address] Dr. Ibis JimenezChloride [Moles/Vol]106 mmol/XHdhhnj58-281Hdk [facility] Comment on above:Performed By: #### BMP #### [facility] [address] [place] [address] Dr. Ibis JimenezCO2 [Moles/Vol]22.3 mmol/MMwoevj67.0-32.0The [facility] Comment on above:Performed By: #### BMP #### [facility] [address] [place] [address] Dr. Ibis JimenezCreatinine [Mass/Vol]0.75 mg/dLNormal0.55-1.02The [facility] CenterComment on above:Performed By: #### BMP #### [facility] [address] [place] [address] Dr. Ibis RojasGFR-AF SAMMARINESE>60Normal>=60The [facility] CenterComment on above:Performed By: #### BMP #### [facility] [address] [place] [address] Dr. Ibis RojasGFR-NON AF SAMMARINESE>60Normal>=60The [facility] CenterComment on above:Performed By: #### BMP #### [facility] [address] [place] [address] Dr. Ibis JimenezGlucose [Mass/Vol]107 mg/dLCritically lgew31-156Gjb [facility] CenterComment on above:Performed By: #### BMP #### [facility] [address] [address] [address] Ibis JimenezPotassium [Moles/Vol]3.6 mmol/LNormal3.5-5.1[facility] Comment on above:Performed By: #### BMP #### [facility] [address] [address] [address] Ibis Potterdium [Moles/Vol]140 mmol/CUwjdfx242-161Jqi [facility] Comment on above:Performed By: #### BMP #### [facility] [address] [address] [address] Ibis JimenezUrea nitrogen [Mass/Vol]13.0 mg/dLNormal7.0-18.0[facility] HospitalComment on above:Performed By: #### BMP #### [facility] [address] [address] [address] Ibis Lama nitrogen/Creatinine [Mass ratio]17.3 mg/mgNoCleveland ClinicComment on above:Performed By: #### BMP #### [facility] [address] [place] [address] Dr. Ibis CAINon [id number]H SEEN [facility] [place] on above:Performed By: #### BMP #### [facility] [address] [address] [address] Ibis Pettit identified Cx Nom (U)NOT INDICATEDNoCleveland ClinicCommclaren [place] on above:Performed By: #### BMP #### [facility] [address] [address] [address] Ibis Baron SEENNormalNONE SEENBellevue HospitalCommclaren [facility] [place] on above:Performed By: #### BMP #### [facility] [address] [address] [address] Ibis Oviedo LM Nom (Urine sed)NONE SEENNormalNONE SEENBellevue HospitalCommclaren [place] on above:Performed By: #### BMP #### [facility] [address] [address] [address] Baumann ChangEpithelial cells LM Ql (Urine sed)MANYAbnormalNONE SEEN /RAREThe [facility] CenterCommclaren [place] on above:Performed By: #### BMP #### [facility] [address] [address] [address] Ibis GallegosCOUSSMALLAbnormalNONE SEENThe [facility] CenterCommcl[facility] [place] on above:Performed By: #### BMP #### [facility] [address] [address] [address] Ibis JimenezOlsgmJRN6-4Ademgeym1-5Pqt [facility] Center[facility] [place] on above:Performed By: #### BMP #### [facility] [address] [address] [address] Ibis JimenezWBC2-5AbnormalNONE SEENThe [facility] on above: Performed By: #### BMP #### [facility] [address] [address] [address] Ibis [facility]enezBAPTIST [facility] Auto DifferentialOrdered By: Keven Ching on 12-24-2020 Absolute Eos #0.44[facility] Phone: absolute Immature Granulocyte0.05[facility] Phone: absolute Lymph #2.48[facility] Phone: absolute [place] #0.55[facility] Phone: basophils (Bld) [#/Vol]10*3/uLHenry County HospitalDealdrive Phone: basophils/100 WBC (Bld)0 %0 - 2 %[employer] Phone: differential TypeNOT REPORTEDHenry County HospitalDealdrive Phone: eosinophils/100 WBC (Bld)5 %High1 - 4 %[employer] Phone: Hematocrit (Bld) [Volume fraction]37.4 %36.3 - 47.1 % [employer] Phone: Hemoglobin.gastrointestinal spec 1 Ql (Stl)12.3 g/dL 11.9 - 15.1 g/dLHenry County HospitalDealdrive Phone: Immature granulocytes/100 WBC (Bld)1 %Qygn3UysobDealdrive Phone: Interpretation and review of laboratory results AbnormalHenry County HospitalDealdrive Phone: Lymphocytes/100 WBC (Bld)30 %24 - 43 %[employer] Phone: MCH (RBC) [Entitic mass]28.5 pg25.2 - 33.5 pgHenry County HospitalDealdrive Phone: MCHC (RBC) [Mass/Vol]32.9 g/dL28.4 - 34.8 g/dLHenry County HospitalDealdrive Phone: MCV (RBC) [Entitic vol]86.8 fL82.6 - 102.9 fLHenry County HospitalDealdrive Phone: Monocytes/100 WBC (Bld)7 %3 - 12 %[employer] Phone: NRBC Automated0.00.0 per 100 WBCHenry County HospitalDealdrive Phone: platelet distribution width (Bld) [Ratio]12.7 %11.8 - 14.4 %[employer] Phone: Ylatelet EstimateNOT REPORTEDHenry County HospitalDealdrive Phone: Elatelet mean volume (Bld) [Entitic vol]9.4 fL8.1 - 13.5 fLHenry County HospitalDealdrive Phone: Platelets (Bld) [#/Vol]252 10*3/uLHenry County HospitalDealdrive Phone: RBC (Bld) [#/Vol]4.31 10*6/uL3.95 - 5.11 m/Vyyo Phone: RBC (Bld) [#/Vol]NOT REPORTEDBarney [facility] [employer] Work Phone: segmented neutrophils/100 WBC (Bld)57 %36 - 65 %[facility] [employer] Work Phone: segs Absolute4.78[facility] [employer] Work Phone: WBC (Bld) [#/Vol]8.3 10*3/uLBarney Children'S Medical Center [employer] Work Phone: WBC (Bld) [#/Vol]NOT REPORTEDBarney Children'S Medical Center [employer] Work Phone: [facility] [employer] Work Phone: cBC with Diffon [id number]. Basophil<0.03Normal 0.00-0.20MerMercy Health HospitalComment on above:Performed By: #### CMPX, CDP #### [address] [place], [facility]83 Civil Lawyer: Wendy Elder.Imm.Granulocyte0.05 k/uLNormal0.00-0.30[facility] HospitalComment on above:Performed By: #### CMPX, CDP #### [address] [place] [address] Civil Lawyer: Wendy Elder.Neutrophil (Seg)4.78 k/uLNormal1.50-8.10[facility] HospitalComment on above:Performed By: #### CMPX, CDP #### [address] [place], [place] [id number] Civil Lawyer: Souleymane Pineda MDBasophils/100 WBC (Bld)0 %Normal0-2[facility] HospitalComment on above:Performed By: #### CMPX, CDP #### [address] [place], [place] [address] Civil Lawyer: Souleymane Pineda MDEosinophils (Bld) [#/Vol]0.44 10*3/uLNormal 0.00-0.44[facility] HospitalComment on above:Performed By: #### CMPX, CDP #### [address] [place] [address] Civil Lawyer: Souleymane Pineda MDEosinophils/100 WBC (Bld)5 %High1-4[facility] HospitalComment on above:Performed By: #### CMPX, CDP #### [address] [place] [address] Civil Lawyer: Souleymane Pineda MDErythrocyte distribution width (RBC) [Ratio]12.7 % Lsdbdv74.8-14.4[facility] HospitalComment on above:Performed By: #### CMPX, CDP #### [address] [place] [address] Civil Lawyer: Souleymane Pineda MDHematocrit (Bld) [Volume fraction]37.4 %Normal 36.3-47.1[facility] HospitalComment on above:Performed By: #### CMPX, CDP #### [address] [place] [id number] Civil Lawyer: Souleymane Pineda MDHemoglobin (Bld) [Mass/Vol]12.3 g/dLNormal 11.9-15.1MAdena Health System HospitalComment on above:Performed By: #### CMPX, CDP #### [address] [place] [address] Civil Lawyer: Souleymane Pineda MDImmature granulocytes/100 WBC (Bld)1 %Akxt1YjenfSt. Francis Hospital HospitalComment on above:Performed By: #### CMPX, CDP #### [address] [place] [address] Civil Lawyer: Souleymane Pineda MDLymphocytes (Bld) [#/Vol]2.48 10*3/uLNormal 1.10-3.70[facility] HospitalComment on above:Performed By: #### CMPX, CDP #### [address] [place], [place] [address]83 Civil Lawyer: Souleymane Pineda MDLymphocytes/100 WBC (Bld)30 %Ilycpj11-60IhwegKeenan Private HospitalComment on above:Performed By: #### CMPX, CDP #### [address] [place] [address] Civil Lawyer: JUNAID ElderCH (RBC) [Entitic mass]28.5 tuJgjbew94.2-33.5 [facility] HospitalComment on above:Performed By: #### CMPX, CDP #### [address] [place], [place] [id number] Civil Lawyer: LASHAWN ElderC (RBC) [Mass/Vol]32.9 g/eEPcyrcs79.4-34.8[facility] HospitalComment on above:Performed By: #### CMPX, CDP #### [address] [place], [place] [address] Civil Lawyer: JUNAID ElderCV (RBC) [Entitic vol]86.[address]Bejsnh38.6-102.9 [facility] HospitalComment on above:Performed By: #### CMPX, CDP #### [address] [place] [address] Civil Lawyer: JUNAID Elderonocytes (Bld) [#/Vol]0.55 10*3/uLNormal0.10-1.20 [facility] HospitalComment on above:Performed By: #### CMPX, CDP #### [address] [place] [address] Civil Lawyer: JUNAID Elderonocytes/100 WBC (Bld)7 %Normal3-12[facility] HospitalComment on above:Performed By: #### CMPX, CDP #### [facility] [address] [place] [address] [place] [address] Civil Lawyer: Souleymane Pineda MDNeutrophil (Seg)57 %Ohdcik68-42Oaavy [facility] HospitalComment on above:Performed By: #### CMPX, CDP #### [address] [place] [address] Civil Lawyer: COURTNEY Elder Automated0.0 per 100 WBCNormal0.0[facility] HospitalComment on above:Performed By: #### CMPX, CDP #### [address] [place], [place] [address] Civil Lawyer: Greta Elder mean volume (Bld) [Entitic vol]9.4 fL Normal8.1-13.5[facility] HospitalComment on above:Performed By: #### CMPX, CDP #### [address] [place], [place] [address] Civil Lawyer: Kaylee Elderteyanni (Bld) [#/Vol]252 10*3/oMNfzkgv622-276 [facility] HospitalComment on above:Performed By: #### CMPX, CDP #### [facility] [address] [place] [address] Dr. [place], [place] [id number] Civil Lawyer: FRANCISCO ElderBC (Bld) [#/Vol]4.31 10*6/uLNormal3.95-5.11[facility] HospitalComment on above:Performed By: #### CMPX, CDP #### [address] [place], [place] [address] Civil Lawyer: JESSE ElderBC (Bld) [#/Vol]8.3 10*3/uLNormal3.5-11.3[facility] HospitalComment on above:Performed By: #### CMPX, CDP #### [address] [place], [place] [address] Civil Lawyer: Amaris Elder Diff PerformedNOT REPORTEDNormalSt. Francis Hospital HospitalComment on above:Performed By: #### CMPX, CDP #### [address] [place] [address] Civil Lawyer: Kaylee Eldertelet CommentNOT REPORTEDNormalSt. Francis Hospital HospitalComment on above:Performed By: #### CMPX, CDP #### [address] [place], [place] [address]83 Civil Lawyer: SILVIA Elder morphology finding Nom (Bld)NOT REPORTEDNormal [facility] HospitalComment on above:Performed By: #### CMPX, CDP #### [address] [place], [place] [address] Civil Lawyer: RENETTA Elder MorphologyNOT REPORTEDNormalSt. Francis Hospital HospitalComment on above:Performed By: #### CMPX, CDP #### [address] [place], [place] 1523883 Civil Lawyer: BEE Elder HEAD WO CONTRASTon 07-36-1932LC HEAD WO CONTRASTEXAMINATION: CT OF THE HEAD [...] the orbits demonstrate no acute abnormality. SINUSES: Pilk-ox-dlhtjkei paranasal sinus mucosal thickening. SOFT TISSUES/SKULL: No acute abnormality of the visualized skull or soft tissues. IMPRESSION: No acute intracranial abnormality. Interpreted by: Edwin Bentley MD Signed by: Edwin Bentley MD 12/24/20 Final resultNormalKeenan Private HospitalCT Head WO ContrastOrdered By: Keven Ching on 85-25-3270Xj acute intracranial abnormality.[employer] Phone: eXAMINATION: CT OF THE HEAD WITHOUT [...] of theorbits demonstrate no acute abnormality. SINUSES: Csaa-jt-kjndaitf paranasal sinus mucosal thickening. SOFT TISSUES/SKULL: No acute abnormality of the visualized skull or soft tissues.[employer] Phone: [facility] Incoming Radiant Results From [employer] - 12/24/2020 8:49 PM EDT EXAMINATION: CT [...] the orbits demonstrate no acute abnormality. SINUSES: Pzfx-px-dhbxmajj paranasal sinus mucosal thickening. SOFT TISSUES/SKULL: No acute abnormality of the visualized skull or soft tissues. IMPRESSION: No acute intracranial abnormality. [facility] Work Phone: [facility] Work Phone: comp Metabolic Pr/rfx MGon 52-61-1435Fkvmftbmp [Mass/Vol]mg/dLLow0.3-1.2MAdena Health System HospitalComment on above:Performed By: #### AGUSTÍN, CDP #### [address] [place] [address] Civil Lawyer: Souleymane Pineda MD(cont.)[facility] HospitalComment on above:Result Comment: Average GFR for 20-29 years old: 116 mL/min/1.73sq m Chronic Kidney Disease: <60 mL/min/1.73sq m Kidney failure: <15 mL/min/1.73sq m eGFR calculated using average adult body mass. Additional eGFR calculator available at: http://www.[employer]™ Interactive/multiple_crcl_2012.htmPerformed By: #### AGUSTÍN, CDP #### [address] [place] [address] Civil Lawyer: Souleymane Pineda MDAlbumin [Mass/Vol]4.0 g/dLNormal3.5-5.2MCleveland [facility] Pointe HospitalComment on above:Performed By: #### KEKEX, CDP #### [address] [place] [address] Civil Lawyer: Souleymane Sturtz, MDAlbumin/Glob Ratio1.3Pwuvjj1.0-2.5MerMercy Health HospitalComment on above:Performed By: #### CMPX, CDP #### [address] [place], [place] [address] Civil Lawyer: Jennifer Elderkaline Phos90 U/NQdpiyx79-356NqggcKeenan Private HospitalComment on above:Performed By: #### CMPX, CDP #### [facility] [address] [place] [address] [place] [address] Civil Lawyer: Souleymane Pineda MDALT [Catalytic activity/Vol]40 U/LHigh5-33MerYale New Haven Children's HospitalComment on above:Performed By: #### CMPX, CDP #### [address] [place] [address] Civil Lawyer: Souleymane Pineda MDAnion gap [Moles/Vol]11 mmol/LNormal9-17[facility] HospitalComment on above:Performed By: #### CMPX, CDP #### [address] [place] [address] Civil Lawyer: Souleymane Pineda MDAST [Catalytic activity/Vol]19 U/LNormal<32MerYale New Haven Children's HospitalComment on above:Performed By: #### CMPX, CDP #### [facility] [address] [place] [address] [place] [address] Civil Lawyer: Souleymane Pineda MDBUN/CRE Wyhou93Xqfjfz0-59Jkptq [facility] Comment on above:Performed By: #### CMPX, CDP #### [facility] [address] [place] [address] [place] [address] Civil Lawyer: Souleymane Pineda MDCalcium [Mass/Vol]8.9 mg/dLNormal8.6-10.4[facility] HospitalComment on above:Performed By: #### CMPX, CDP #### [address] [place] [address] Civil Lawyer: CLARK Elderhloride [Moles/Vol]104 mmol/OEnaxlw46-414Ugkrp [facility] HospitalComment on above:Performed By: #### CMPX, CDP #### [address] [place], [place] [address]83 Civil Lawyer: Souleymane Pineda MDCO2 [Moles/Vol]24 mmol/FHzooco72-50Gkohr [facility] HospitalComment on above:Performed By: #### CMPX, CDP #### [address] [place], [place] [address]28383 Civil Lawyer: CLARK Elderreatinine [Mass/Vol]0.60 mg/dLNormal0.50-0.90 [facility] HospitalComment on above:Performed By: #### CMPX, CDP #### [address] [place], [place] [address]83 Civil Lawyer: Souleymane Pineda MDGFR, Amer>60Normal>60[facility] Comment on above:Performed By: #### CMPX, CDP #### [address] [place], [place] [address]83 Civil Lawyer: Souleymane Pineda MDGFR,non Amer>60Normal>60[facility] Medical CenterComment on above:Performed By: #### CMPX, CDP #### [address] [place] [address] Civil Lawyer: Souleymane Pineda MDGlucose [Mass/Vol]91 mg/pOUzqxnv14-93Ciwol [facility] HospitalComment on above:Performed By: #### CMPX, CDP #### [address] [place], [place] [address]783 Civil Lawyer: Souleymane Pindea MDPotassium [Moles/Vol]4.0 mmol/LNormal3.7-5.3MAdena Health System HospitalComment on above:Performed By: #### CMPX, CDP #### [address] [place] [address] Civil Lawyer: MAGED Elderrotein [Mass/Vol]6.7 g/dLNormal6.4-8.3MCleveland Clinic South Pointe HospitalComment on above:Performed By: #### CMPX, CDP #### [address] [place] [address] Civil Lawyer: ALEX Elderodium [Moles/Vol]139 mmol/KXtvntt239-608LzzfyKeenan Private HospitalComment on above:Performed By: #### CMPX, CDP #### [address] [place] [address] Civil Lawyer: ALEX Eldertaging:NormalKeenan Private HospitalComment on above:Result Comment: Stage 1: Some kidney damage normal GFR Stage 2: Mild kidney damage GFR 60-89 Stage 3: Moderate kidney damage GFR 30-59 Stage 4: Severe kidney damage GFR 15-29 Stage 5: Severe kidney damage GFR <15 ESRD - chronic treatment by dialysis or transplantPerformed By: #### CMPX, CDP #### [address] [place] [address] Civil Lawyer: Souleymane Pineda MDUrea nitrogen [Mass/Vol]9 mg/dLNormal6-20[facility] HospitalComment on above:Performed By: #### CMPX, CDP #### [address] [place] [address] Civil Lawyer: CLARK Elderomprehensive Metabolic Panel w/ Reflex to MG Ordered By: Keven Ching on 33-53-4719Mmkjuop [Mass/Vol]4 g/dL3.5 - 5.2 g/dL [facility] Work Phone: albumin/Globulin [Mass ratio]1.5 {ratio}[facility] Work Phone: HLP (Bld) [Catalytic activity/Vol]90 U/L35 - 104 U/L [facility] [employer] Work Phone: ILT [Catalytic activity/Vol]40 U/LHigh5 - 33 U/LMpremier health miami valley hospital southy [employer] Work Phone: Snion gap [Moles/Vol]11 mmol/L9 - 17 mmol/LMpremier health miami valley hospital southy [employer] Work Phone: OST [Catalytic activity/Vol]19 U/L<32[facility] [employer] Work Phone: Oilirubin [Mass/Vol]mg/dLLow0.3 - 1.2 mg/dLBarney Children'S Medical Center [employer] Work Phone: Ialcium [Mass/Vol]8.9 mg/dL8.6 - 10.4 mg/dLBarney Children'S Medical Center [employer] Work Phone: Hhloride [Moles/Vol]104 mmol/L98 - 107 mmol/LMmain campus medical center [employer] Work Phone: UO2 [Moles/Vol]24 mmol/L20 - 31 mmol/LMmain campus medical center [employer] Work Phone: creatinine [Mass/Vol]0.6 mg/dL0.50 - 0.90 mg/dLBarney Children'S [facility] [employer] Phone: Free PSA/Total PSA [Mass fraction]6.7 g/dL6.4 - 8.3 g/dLBarney Children'S Medical Center [employer] Work Phone: GFR >60>60 mL/minBarney Children'S Medical Center [employer] Work Phone: GFR Non->60>60 mL/minBarney Children'S Medical Center [employer] Work Phone: Glucose [Mass/Vol]91 mg/dL70 - 99 mg/dLBarney Children'S Medical Center [employer] Work Phone: Interpretation and review of laboratory results AbnormalBarney Children'S Medical Center [employer] Work Phone: potassium [Moles/Vol]4.0 mmol/L3.7 - 5.3 mmol/LMmain campus medical center [employer] Phone: sodium [Moles/Vol]139 mmol/L135 - 144 mmol/LMmain campus medical center [employer] Work Phone: Urea nitrogen (BldV) [Mass/Vol]9 mg/dL6 - 20 mg/dL [facility] [employer] Phone: Urea nitrogen/Creatinine (Bld) [Mass ratio]15[facility] HospitalUvers[facility] Work Phone: [facility] [employer] Phone: laboratory - Chemistry and Chemistry - challenge Ordered By: Keven Ching on 36-00-8399YKV/1.73 sq M.predicted MDRD (S/P/Bld) [Vol rate/Area][facility] CenterLearn [facility] Phone: comment on above:Average GFR for 20-29 years old: 116 mL/min/1.73sq m Chronic Kidney Disease: <60 mL/min/1.73sq m Kidney failure: <15 mL/min/1.73sq m eGFR calculated using average adult body mass. Additional eGFR calculator available at: http://www.Rosalind/multiple_crcl_2011.htm Stage 1: Some kidney damage normal GFR Stage 2: Mild kidney damage GFR 60-89 Stage 3: Moderate kidney damage GFR 30-59 Stage 4: Severe kidney damage GFR 15-29 Stage 5: Severe kidney damage GFR <15 ESRD - chronic treatment by dialysis or transplant Vital Signs Date TimeVital SignValuePerforming KkanhanznEijtquxc59-80-0103 10:010400Body .9 cmAssumpta [employer] COUNTER CHECKER-AGENCY SALES REPRESENTATIVE Work Phone: [facility]10-31-2025 10:010400Body mass index (BMI) [Ratio]53.58 kg/u7Fpxgsuzw Craftistasesthela COUNTER CHECKER-AGENCY SALES REPRESENTATIVE Work Phone: [facility]10-31-2025 10:01-0400Body hlwgiownoar23.9 [degF]Assumpta e-contratosNBespoke [employer]ations Work Phone: [facility]10-31-2025 10:01-0400Body wxjsby797.55 kgAssumpta Raul HECK-FADY Work Phone: [facility]10-31-2025 10:01-0400Diastolic blood dhadabfk26 mm[Hg]Assumpta Raul HECK-FADY Work Phone: [address] [place], [place] [address]10-31-2025 10:01-0400Heart rate 112 /minAssumpta Raul SCHMITTN-FADY Work Phone: [facility]10-31-2025 10:01-8669KcE3% (BldA) [Mass fraction]96 %Assumpta Raul HECK-FADY Work Phone: [facility]10-31-2025 10:01-0400Systolic blood xoncetjc953 mm[Hg]Assumpta Raul MCCLAIN Work Phone: [facility]10-28-2025 09:30-0400Body vvyern843.9 cmSopal Peña DO Work Phone: [phone] [employer] Rbzhbx87-46-0764 09:30-0400Body mass index (BMI) [Ratio]52.49 kg/p3CrluikVincent Peña DO Work Phone: [facility] [employer] Uvazlt93-28-1844 09:30-0400Body yjdyyq775 kgVincent Peña DO Work Phone: [phone] [employer] Yrgeyi29-26-1304 09:30-0400Diastolic blood fgdnkamf65 mm[Hg]Vincent Peña DO Work Phone: [facility] [employer] Zlbiae11-58-1064 09:30-0400Heart rate 79 /minSopal Peña DO Work Phone: [facility] [employer] Mhlgjh77-70-3248 09:30-7032FbK1% (BldA) [Mass fraction]99 %Vincent Peña DO Work Phone: [facility] [employer] Gwumfo80-56-3303 09:30-0400Systolic blood xjslohsp879 mm[Hg]Vincent Peña DO Work Phone: [facility]10-21-2025 15:00-0400Body gxekdv577.9 cmCorine Gold MD Work Phone: [facility]10-21-2025 15:00-0400Body mass index (BMI) [Ratio]52.49 kg/w4MohtutyCorine Gold MD Work Phone: [phone]10-21-2025 15:00-0400Body xiicizfepzd26.39 [degF]Corine Gold MD Work Phone: [facility]10-21-2025 15:00-0400Body lfzohq287.01 kgCorine Gold MD Work Phone: [facility]10-21-2025 15:00-0400Diastolic blood vvobvdjw19 mm[Hg]Corine Gold MD Work Phone: [facility]10-21-2025 15:00-0400Heart rate 77 /minCorine Gold MD Work Phone: [facility]10-21-2025 15:00-2471HaZ3% (BldA) [Mass fraction]94 %Corine Gold MD Work Phone: [facility]10-21-2025 15:00-0400Systolic blood rhxguvcp998 mm[Hg]Corine Gold MD Work Phone: [facility]09-04-2025 14:57-0400Body .4 cmAyvonne Hart APRN-AGENCY SALES REPRESENTATIVE Work Phone: [facility]09-04-2025 14:57-0400Body mass index (BMI) [Ratio]53.75 kg/o0DygejpxqaMali Hart APRN-AGENCY SALES REPRESENTATIVE Work Phone: [facility]09-04-2025 14:57-0400Body zdrcjclnpwy28.6 [degF]Mali Hart COUNTER CHECKER-AGENCY SALES REPRESENTATIVE Work Phone: [facility]09-04-2025 14:57-0400Body .83 kgAledc Hart COUNTER CHECKER-AGENCY SALES REPRESENTATIVE Work Phone: [facility]09-04-2025 14:57-0400Diastolic blood mm[Hg]Mali Hart COUNTER CHECKER-AGENCY SALES REPRESENTATIVE Work Phone: [facility]09-04-2025 14:57-0400Heart rate 97 /minAledc Hart COUNTER CHECKER-AGENCY SALES REPRESENTATIVE Work Phone: [facility]09-04-2025 14:57-6671LjX8% (BldA) [Mass fraction]95 %Mali Hart COUNTER CHECKER-AGENCY SALES REPRESENTATIVE Work Phone: [facility]09-04-2025 14:57-0400Systolic blood qruqfcdq327 mm[Hg]Mali Hart COUNTER CHECKER-AGENCY SALES REPRESENTATIVE Work Phone: [facility]07-15-2025 10:33-0400Body mass index (BMI) [Ratio]50.73 kg/h0Bczyb Roopa DO Work Phone: [facility] CenterRazbxpkrxu19-00-7327 10:33-0400Body cdaeni792.79 kgCorey Roopa DO Work Phone: [facility] CenterVrvavxlrcd27-44-4715 10:33-0400Diastolic blood ygeurgoe915 mm[Hg]Zay Roopa DO Work Phone: [facility] CenterBrvrqgsgxv74-43-9921 10:33-0400Systolic blood ckgvtaqu092 mm[Hg]Zay Roopa DO Work Phone: [facility] CenterNqdxhlnfxf08-45-9855 12:12-0400Diastolic blood jyvfxpsc23 mm[Hg]Infusion 5 Work Phone: [facility]06-13-2025 12:12-0400Heart rate97 /min Infusion 5 Work Phone: [facility]06-13-2025 12:12-0400Systolic blood ubnrkbwd260 mm[Hg]Infusion 5 Work Phone: [facility]06-12-2025 12:24-0400Diastolic blood zjistizw48 mm[Hg]Infusion 7 Work Phone: [facility]06-12-2025 12:24-0400Heart rate98 /min Infusion 7 Work Phone: [facility]06-12-2025 12:24-0400Systolic blood hyeuwgfs637 mm[Hg]Infusion 7 Work Phone: [facility]06-04-2025 15:07-0400Body tsoybv867.4 cmHalima Johns APRN-AGENCY SALES REPRESENTATIVE Work Phone: [facility]06-04-2025 15:07-0400Body mass index (BMI) [Ratio]49.76 kg/b7KsrwxoHalima Johns APRN-AGENCY SALES REPRESENTATIVE Work Phone: [facility]06-04-2025 15:07-0400Body tncibgcsmpi72.01 [degF]Halima Johns APRN-AGENCY SALES REPRESENTATIVE Work Phone: [facility]06-04-2025 15:07-0400Body uvzzka318.58 kgHalima Johns APRN-AGENCY SALES REPRESENTATIVE Work Phone: [facility]06-04-2025 15:07-0400Diastolic blood fxexwwtr91 mm[Hg]Halima Johns APRN-AGENCY SALES REPRESENTATIVE Work Phone: [facility]06-04-2025 15:07-0400Heart rate 102 /minHalima Johns APRN-AGENCY SALES REPRESENTATIVE Work Phone: [facility]06-04-2025 15:07-5298IlN7% (BldA) [Mass fraction]99 %Halima Johns APRN-AGENCY SALES REPRESENTATIVE Work Phone: [facility]06-04-2025 15:07-0400Systolic blood mm[Hg]Halima Mirandaler COUNTER CHECKER-AGENCY SALES REPRESENTATIVE Work Phone: [facility] [facility] 08:40-0400Body mass index (BMI) [Ratio]47.2 kg/h4Ryxoe Roopa DO Work Phone: [facility] CenterMuiawrjwib90-57-6976 08:40-0400Body exsuxk946.31 kgCorevikas Roopa DO Work Phone: [facility] CenterIeukphrsrn15-72-7930 08:40-0400Diastolic blood gbbjkiyb48 mm[Hg]Zay Greero DO Work Phone: [facility] CenterVtruxsilel87-86-5945 08:40-0400Systolic blood galpkwlk081 mm[Hg]Zay Greero DO Work Phone: [facility] CenterWmjfnfwowj27-40-1244 09:43-0400Body mass index (BMI) [Ratio]46.09 kg/n2Oicobmasharad Cotton DO Work Phone: [facility]04-01-2025 09:43-0400Body mtshbrmqhol73.81 [degF]Rajinder Poncemimi DO Work Phone: [facility]04-01-2025 09:43-0400Body phugvt595.05 kgMicsharad Cotton DO Work Phone: [facility]04-01-2025 09:43-0400Diastolic blood mm[Hg]Rajinder Cotton DO Work Phone: [facility]04-01-2025 09:43-0400Heart rate 106 /minMicdeysipradeep Lula DO Work Phone: [facility]04-01-2025 09:43-3284WiC9% (BldA) [Mass fraction]98 %Rajinder Krismimi DO Work Phone: [facility]04-01-2025 09:43-0400Systolic blood mm[Hg]Rajinder Cotton DO Work Phone: [facility]03-26-2025 08:46-0400Body lxsash846.4 cmCourmagdielyung Ye PA Work Phone: [facility]03-26-2025 08:46-0400Body mass index (BMI) [Ratio]46.36 kg/n9Glidycmf Ye PA Work Phone: [facility]03-26-2025 08:46-0400Body usnjxadfrue70.1 [degF]Svetlana Ye PA Work Phone: [phone]03-26-2025 08:46-0400Body .68 kgCogisel Wallacene PA Work Phone: [phone]03-26-2025 08:46-0400Diastolic blood bblgvebp42 mm[Hg]Svetlana Wallacene PA Work Phone: [facility]03-26-2025 08:46-0400Heart rate 98 /minCourtyung Wallacene PA Work Phone: [facility]03-26-2025 08:46-0400 Respiratory rate18 /minCourtney Ye PA Work Phone: [facility]03-26-2025 08:46-4047BlI4% (BldA) [Mass fraction]98 %Svetlana Ye PA Work Phone: [facility]03-26-2025 08:46-0400Systolic blood chmzyxax038 mm[Hg]Svetlana Wallacene PA Work Phone: [facility]03-13-2025 12:20-0400Diastolic blood mm[Hg]Infusion 7 Work Phone: [facility]03-13-2025 12:20-0400Heart rate90 /min Infusion 7 Work Phone: [facility]03-13-2025 12:20-0400Systolic blood hyquhjed395 mm[Hg]Infusion 7 Work Phone: [facility]03-06-2025 13:06-0500Body .9 cmCorine Gold MD Work Phone: [facility]03-06-2025 13:06-0500Body mass index (BMI) [Ratio]44.01 kg/z3HnaxvkvCorine Gold MD Work Phone: [facility]03-06-2025 13:06-0500Body thatvlejdej73.7 [degF]Corine Gold MD Work Phone: [facility]03-06-2025 13:06-0500Body ashndm501.6 kgCorine Gold MD Work Phone: [facility]03-06-2025 13:06-0500Diastolic blood ekqnnjas21 mm[Hg]Corine Gold MD Work Phone: [facility]03-06-2025 13:06-0500Heart rate 91 /minCorine Gold MD Work Phone: [facility]03-06-2025 13:06-2361HoF6% (BldA) [Mass fraction]98 %Corine Gold MD Work Phone: [facility]03-06-2025 13:06-0500Systolic blood erqdbuzs318 mm[Hg]Corine Gold MD Work Phone: [facility]03-05-2025 09:45-0500Body mass index (BMI) [Ratio]44.58 kg/m7JtvnjlwgSvetlana HERNANDEZ Work Phone: [facility]03-05-2025 09:45-0500Body uwnpsryobwj75.9 [degF]Svetlana HERNANDEZ Work Phone: [facility]03-05-2025 09:45-0500Body piclaz277.96 kgCogisel HERNANDEZ Work Phone: [facility]03-05-2025 09:45-0500Diastolic blood brxaojbi82 mm[Hg]Svetlana Ye PA Work Phone: [phone] CampusClaim[facility] Vfdrhc86-09-9383 09:45-0500Heart rate 99 /minCourtney Ye PA Work Phone: [phone] [place], [place] [address] Fqbclj51-43-7131 09:45-4961IjT9% (BldA) [Mass fraction]96 %Svetlana Ye PA Work Phone: [phone] [place], [place] [address] Adjgxf48-22-3915 09:45-0500Systolic blood akhmxlus651 mm[Hg]Svetlana Ye PA Work Phone: [phone] [place], [place] [address] Vhbsfl67-08-6021 09:16-0500Diastolic blood mm[Hg]Svetlana Ye PA Work Phone: [phone] [place], [place] [address] Zmxudc89-31-0208 09:16-0500Heart rate 88 /minCourtney Ye PA Work Phone: [phone] [place] [address] [facility] Mokbvb30-63-0765 09:16-0500 Respiratory rate16 /minCourtney Ye PA Work Phone: [phone] [place], [place] [address] Axhxaz47-40-5552 09:16-1753EzQ4% (BldA) [Mass fraction]96 %Svetlana Ye PA Work Phone: [phone] [place], [place] [address] Ndcgmo25-79-4697 09:16-0500Systolic blood eqrylmdt907 mm[Hg]Svetlana Ye PA Work Phone: [phone] [place], [place] [address] Vrhtjo58-41-9364 09:01-0500Body iiqmqs417.9 cmCourtney Ye PA Work Phone: [phone] [place], [place] [address] Egxqsy14-25-7929 09:01-0500Body mass index (BMI) [Ratio]45.83 kg/l1Gozyiaqc Ye PA Work Phone: [phone] [place], [place] [address] Gmanfe33-18-9127 09:01-0500Body xruynd968.95 kgCourtney Ye PA Work Phone: [phone] [place], [place] 7044902-19-2025 11:09-0500Body zmvullmekuc15.5 [degF]Milad Hernandez MD Work Phone: 1([phone] [place], [place] 7044902-19-2025 11:09-0500Diastolic blood mm[Hg]Milad Hernandez MD Work Phone: [phone] [place], [place] 7044902-19-2025 11:09-0500Heart rate 90 /minMilad Hernandez MD Work Phone: 1([phone] [place], [place] 7044902-19-2025 11:09-0500 Respiratory rate18 /minMilad Hernandez MD Work Phone: 1(475)9-[address] [place], [place] 7044902-19-2025 11:09-6131LnF9% (BldA) [Mass fraction]95 %Milad Hernandez MD Work Phone: [phone] [place], [place] 7044902-19-2025 11:09-0500Systolic blood mpekedzr846 mm[Hg]Milad Hernandez MD Work Phone: [phone] [place], [place] 7044902-19-2025 05:25-0500Body mass index (BMI) [Ratio]47.4 kg/m2Milad Hernandez MD Work Phone: [phone]02-19-2025 05:25-0500Body ufqjwb876.8 kgMilad Hernandez MD Work Phone: [phone]02-11-2025 13:07-0500Body mass index (BMI) [Ratio]45.73 kg/b7Wilps Roopa DO Work Phone: [facility] CenterDofkaxgmjq33-59-8835 13:07-0500Body ygucpr043.77 kgCorey Roopa DO Work Phone: [facility] CenterYsfswjveni33-49-3550 13:07-0500Diastolic blood ouqwtgjk98 mm[Hg]Zay Roopa DO Work Phone: [facility] CenterEbcmweswyc55-06-5663 13:07-0500Systolic blood soxxsjjm093 mm[Hg]Zay Blas DO Work Phone: [facility] CenterMzvrjdpikg86-15-5744 15:21-0500Body temperature 98.2 [degF][address]02-03-2025 15:21-0500Diastolic blood bhzkryhj80 mm[Hg][address]02-03-2025 15:21-0500Heart rate86 /min[address]02-03-2025 15:21-0500Respiratory rate20 /min [address]02-03-2025 15:21-4887XhZ9% (BldA) [Mass fraction] 99 %[address]02-03-2025 15:21-0500Systolic blood pressure 132 mm[Hg][address]02-03-2025 14:58-0500Body zajnhq778.[address]02-03-2025 14:58-0500Body mass index (BMI) [Ratio] 45.57 kg/t5Vqjyl[address]02-03-2025 14:58-0500Body mwqork834.[address]01-29-2025 12:15-0500Body eddffx901.9 cmSopal Peña DO Work Phone: [facility]01-29-2025 12:15-0500Body mass index (BMI) [Ratio]45.54 kg/l0FlmldhVincent Peña DO Work Phone: [facility]01-29-2025 12:15-0500Body .32 kgVincent Peña DO Work Phone: [facility]01-29-2025 12:15-0500Diastolic blood vznsfytv52 mm[Hg]Vincent Peña DO Work Phone: [facility]01-29-2025 12:15-0500Heart rate 97 /minSopal Peña DO Work Phone: [facility]01-29-2025 12:15-4121PuT0% (BldA) [Mass fraction]98 %Vincent Peña DO Work Phone: [facility]01-29-2025 12:15-0500Systolic blood lgxgwteb142 mm[Hg]Vincent Peña DO Work Phone: [facility]01-29-2025 12:07-0500Body apwopz765.[address] [place], [place] 3212401-29-2025 12:07-0500Body mass index (BMI) [Ratio]45.54 kg/m2Wlc [address] [place], [place] 3212401-29-2025 12:07-0500Body nilwhf340.[address] [place], [place] 3212401-27-2025 11:03-0500Body xatwrm148.9 Elena Martinez MD Work Phone: [phone]49[facility]01-27-2025 11:03-0500Body mass index (BMI) [Ratio]45.69 kg/n2CorzutuhMundo Martinez MD Work Phone: [phone]01-27-2025 11:03-0500Body lfmbhbukaik43.9 [degF]Mundo Martinez MD Work Phone: [phone])[address]01-27-2025 11:03-0500Body swznos003.68 kgMundo Martinez MD Work Phone: 1(972)8-[address] [place], [place] 7044901-27-2025 11:03-0500Heart rate 77 /Hanh Martinez MD Work Phone: [phone]01-27-2025 11:03-9622BiL8% (BldA) [Mass fraction]99 %Mundo Martinez MD Work Phone: [phone]01-15-2025 10:45-0500Body mass index (BMI) [Ratio]45.69 kg/v2Xjqxq Roopa DO Work Phone: [facility] CenterOqefvhasfn16-30-1691 10:45-0500Body tqrtma410.68 kgCorey Roopa DO Work Phone: [facility] CenterFpgvudqesk82-17-9159 10:45-0500Diastolic blood eecqkbeb75 mm[Hg]Zay Roopa DO Work Phone: 1(054)[facility] CenterImjnxttajb33-69-2017 10:45-0500Systolic blood ityzcmxu760 mm[Hg]Zay Roopa DO Work Phone: 1(642)[facility] [place], [place] [address]Zcuvlgoljn48-38-5463 11:25-0500Body mass index (BMI) [Ratio]47.31 kg/s4Xbjwg Roopa DO Work Phone: 1(038)[facility] [place], [place] [address]Ovkhhgwfsa12-85-3655 11:25-0500Body ppebsp421.58 kgCorey Roopa DO Work Phone: 1(222)[facility] [place], [place] [address]Mjmqcgcwkx75-03-7204 11:25-0500Diastolic blood wqbijenq90 mm[Hg]Zay Roopa DO Work Phone: 1(137)[facility] HospitalNorthern [facility] HospitalN[facility] CenterVxcshdbjkm94-64-9153 11:25-0500Systolic blood mm[Hg]Zay Roopa DO Work Phone: [facility] CenterRrfbmihqey58-92-1345 10:38-0500Body awiwul173.9 cmLamont Blair MD Work Phone: [facility] CenterLgkopygdbj92-21-4208 10:38-0500Body mass index (BMI) [Ratio]49.13 kg/m2Lamont Blair MD Work Phone: [facility] CenterXvjtvcwkoz27-70-0064 10:38-0500Body temperature 98.01 [degF]Lamont Blair MD Work Phone: [facility] CenterAaigftmesb25-83-7294 10:38-0500Body obuurr599.94 kgLamont Blair MD Work Phone: [facility] CenterEroqllxzrd76-23-7786 10:38-0500Diastolic blood vdhgzsyt44 mm[Hg]Lamont Blair MD Work Phone: [facility] CenterHvpfamoaro25-90-0051 10:38-0500Heart cuba883 /min Lamont Blair MD Work Phone: [facility] CenterQgqzbxlume35-63-6192 10:38-0500Respiratory rate22 /minLamont Blair MD Work Phone: [facility] CenterLblijbusfg29-54-2612 10:38-1869QjS6% (BldA) [Mass fraction]90 %Lamont Blair MD Work Phone: [facility] CenterJsudmrvqmq45-91-0965 10:38-0500Systolic blood ymvjolxi562 mm[Hg]Lamont Blair MD Work Phone: [facility] CenterEebwgfaziq64-49-0626 13:28-0500Body xarfmp099.9 cmLamont Blair MD Work Phone: [facility] CenterOumrpispxi81-38-8419 13:28-0500Body mass index (BMI) [Ratio]52.91 kg/m2Lamont Blair MD Work Phone: [facility] CenterFrcqswqzys92-05-3064 13:28-0500Body temperature 98.4 [degF]Lamont Blair MD Work Phone: [facility] CenterPjnbztdmti84-57-4262 13:28-0500Body dotqht025.01 kgLamont Blair MD Work Phone: [facility] CenterAvlplnmtgx03-69-0409 13:28-0500Diastolic blood wcjxuwbw29 mm[Hg]Lamont Blair MD Work Phone: [facility] CenterQvenaiomna88-34-8467 13:28-0500Heart rwkn777 /min Lamont Blair MD Work Phone: [facility] CenterIlkuertqom29-46-6349 13:28-0500Respiratory rate26 /minLamont Blair MD Work Phone: [facility] CenterEuvwxucenk21-12-9049 13:28-1215NlR4% (BldA) [Mass fraction]87 %Lamont Blair MD Work Phone: [facility] CenterDkpsezyulj06-37-8604 13:28-0500Systolic blood vbkanegk519 mm[Hg]Lamont Blair MD Work Phone: [facility] CenterOdsonqwnjj12-56-4723 15:39-0500Diastolic blood bsyohgnx47 mm[Hg]Infusion 1 Work Phone: [facility]12-02-2024 15:39-0500Heart rate97 /min Infusion 1 Work Phone: [facility]12-02-2024 15:39-0500Systolic blood nssvjici517 mm[Hg]Infusion 1 Work Phone: [facility]12-02-2024 13:35-8485TbQ1% (BldA) [Mass fraction]97 %Infusion 1 Work Phone: [facility] HospitalCommclaren [facility] on above:on room ubi20-41-2400 11:28-0500Diastolic blood jkplyfgf70 mm[Hg]Infusion 5 Work Phone: [phone]11-29-2024 11:28-0500Heart rate88 /min Infusion 5 Work Phone: [phone]11-29-2024 11:28-0500Systolic blood mm[Hg]Infusion 5 Work Phone: [facility]11-29-2024 10:00-0500Body temperature 97.3 [degF]Infusion 5 Work Phone: [facility]11-27-2024 11:09-0500Diastolic blood rfhmtsyt20 mm[Hg]Infusion 6 Work Phone: [phone]11-27-2024 11:09-0500Heart rate85 /min Infusion 6 Work Phone: [phone]11-27-2024 11:09-0500Systolic blood gombldpz152 mm[Hg]Infusion 6 Work Phone: [facility]11-19-2024 09:18-0500Body uritoj148.9 cmLamont Blair MD Work Phone: [facility] CenterCrzraipheo81-22-3480 09:18-0500Body mass index (BMI) [Ratio]53.66 kg/m2Lamont Blair MD Work Phone: [place] [address]Gveuqgfwgj97-85-4444 09:18-0500Body temperature 98.01 [degF]Lamont Blair MD Work Phone: [place] [address]Gmplorewxj62-91-7340 09:18-0500Body eakwuq100.82 kgLamont Blair MD Work Phone: [place] [address]Iswzfgbaco25-60-5385 09:18-0500Diastolic blood fefadrsf21 mm[Hg]Lamont Blair MD Work Phone: [phone] [place], [place] [address]Bdezvcaqod32-38-4603 09:18-0500Heart xcym611 /min Lamont Blair MD Work Phone: [place] [address]Datoxekbth90-39-0846 09:18-0500Respiratory rate20 /minLamont Blair MD Work Phone: [place] [address]Mphaosrvsc92-83-8029 09:18-9245JfO3% (BldA) [Mass fraction]90 %Lamont Blair MD Work Phone: [place] [address]Oqivyiggyx55-58-9525 09:18-0500Systolic blood oeyvqhhd451 mm[Hg]Lamont Blair MD Work Phone: [place] [address]Eopymliuji20-59-2033 13:38-0500Diastolic blood wkbdymgm02 mm[Hg]Infusion 8 Work Phone: [facility]11-15-2024 13:38-0500Heart dmkb504 /minInfusion 8 Work Phone: [facility]11-15-2024 13:38-0500Systolic blood mm[Hg]Infusion 8 Work Phone: [facility]09-25-2024 09:05-0400Body fspyah945.9 cmLamont Blair MD Work Phone: [facility] CenterZyrydedwuu92-82-7493 09:05-0400Body mass index (BMI) [Ratio]51.58 kg/m2Lamont Blair MD Work Phone: [facility] CenterRzsmsfohiq47-26-2490 09:05-0400Body temperature 97.81 [degF]Lamont Blair MD Work Phone: [facility] CenterKunxhfymqx62-62-7154 09:05-0400Body fvlgea417.83 kgLamont Blair MD Work Phone: [facility] CenterUmyrhzmkjs88-55-0394 09:05-0400Diastolic blood mm[Hg]Lamont Blair MD Work Phone: [facility] CenterDclazmbmdg26-71-7293 09:05-0400Heart rate60 /min Lamont Blair MD Work Phone: [facility] CenterSlzxsymcxf79-69-3005 09:05-0400Respiratory rate24 /minLamont Blair MD Work Phone: [facility] CenterHrkodecywf08-76-3187 09:05-0400Systolic blood tyzgjpnr895 mm[Hg]Lamont Blair MD Work Phone: [facility] CenterOivrzztjna74-51-0608 13:51-0400Diastolic blood fbzbralv38 mm[Hg]Infusion 8 Work Phone: [facility]08-23-2024 13:51-0400Heart rate77 /min Infusion 8 Work Phone: [facility]08-23-2024 13:51-0400Systolic blood ruvsulsy200 mm[Hg]Infusion 8 Work Phone: [facility]08-20-2024 09:25-0400Body jwwkuo833.9 cmLamont Blair MD Work Phone: [facility] CenterVdfbjsiths85-88-0804 09:25-0400Body mass index (BMI) [Ratio]48.94 kg/m2Lamont Blair MD Work Phone: [facility] CenterCujoofjsxn01-03-0657 09:25-0400Body temperature 97.5 [degF]Lamont Blair MD Work Phone: [place] [address]Nnehidfonf18-07-9815 09:25-0400Body otchma783.48 kgLamont Blair MD Work Phone: [facility] CenterShkbgcrsov32-92-9332 09:25-0400Diastolic blood ebyjwqda65 mm[Hg]Lamont Blair MD Work Phone: [facility] CenterGkqhkjvecd47-26-7174 09:25-0400Heart rate88 /min Lamont Blair MD Work Phone: [facility] CenterHnwzjkmcrb59-09-8695 09:25-0400Respiratory rate22 /minLamont Blair MD Work Phone: [facility] CenterDwpuxzixzr87-36-4648 09:25-1209RhB4% (BldA) [Mass fraction]95 %Lamont Blair MD Work Phone: [facility] CenterVlbjrgcdmo15-23-3877 09:25-0400Systolic blood szcybbmw320 mm[Hg]Lamont Blair MD Work Phone: [facility] CenterEcslbvhvxa50-46-0050 14:22-0400Body suyryy981.4 cmSagar Green COUNTER CHECKER.AGENCY SALES REPRESENTATIVE Work Phone: [facility]07-30-2024 14:22-0400Body mass index (BMI) [Ratio]47.33 kg/m2Sagar Green COUNTER CHECKER.AGENCY SALES REPRESENTATIVE Work Phone: [facility]07-30-2024 14:22-0400Body temperature 99.1 [degF]Cameroni Green COUNTER CHECKER.AGENCY SALES REPRESENTATIVE Work Phone: [facility]07-30-2024 14:22-0400Body .75 kgSagar Green COUNTER CHECKER.AGENCY SALES REPRESENTATIVE Work Phone: [facility]07-30-2024 14:22-0400Diastolic blood onynfebb82 mm[Hg]Cameroni Green COUNTER CHECKER.AGENCY SALES REPRESENTATIVE Work Phone: [facility]07-30-2024 14:22-0400Heart rate80 /min Sagar Green COUNTER CHECKER.AGENCY SALES REPRESENTATIVE Work Phone: [facility]07-30-2024 14:22-0400Systolic blood dztqobqq585 mm[Hg]Sagar Barth APRN.AGENCY SALES REPRESENTATIVE Work Phone: [facility]06-28-2024 09:26-0400Diastolic blood kogtrdvu49 mm[Hg]Curtis Lepe PA-C Work Phone: [facility] HospitalQkkxzi77-99-2476 09:26-0400Heart rate88 /min Curtis Lepe PA-C Work Phone: [facility] HospitalSufiou12-58-9070 09:26-8342SxZ0% (BldA) [Mass fraction]97 %Curtis Lepe PA-C Work Phone: [facility] HospitalNzanvs61-89-4012 09:26-0400Systolic blood vfkhspoo015 mm[Hg]Curtis Lepe PA-C Work Phone: [facility] HospitalFzwyyb36-43-2357 11:08-0500Diastolic blood cyjxtkab01 mm[Hg]Infusion 7 Work Phone: [facility]02-23-2024 11:08-0500Heart rate84 /min Infusion 7 Work Phone: [facility]02-23-2024 11:08-0500Systolic blood tsdnmova067 mm[Hg]Infusion 7 Work Phone: [facility]02-22-2024 10:50-0500Diastolic blood wgiaaydi57 mm[Hg]Infusion 7 Work Phone: [place] [address]-22-2024 10:50-0500Heart rate86 /min Infusion 7 Work Phone: [facility]02-22-2024 10:50-0500Systolic blood ghotdngp612 mm[Hg]Infusion 7 Work Phone: [facility]02-21-2024 13:45-0500Diastolic blood vbedzrqp06 mm[Hg]Infusion 7 Work Phone: [place] [address]-21-2024 13:45-0500Heart rate79 /min Infusion 7 Work Phone: [facility]02-21-2024 13:45-0500Systolic blood pimvoxwy340 mm[Hg]Infusion 7 Work Phone: [facility]09-22-2023 10:55-0400Diastolic blood ergoedzg21 mm[Hg]Infusion 8 Work Phone: [facility]09-22-2023 10:55-0400Heart rate83 /min Infusion 8 Work Phone: [facility]09-22-2023 10:55-0400Systolic blood lfrdsvny711 mm[Hg]Infusion 8 Work Phone: [facility]06-08-2023 10:15-0400Diastolic blood ynfcjakq20 mm[Hg]Infusion 8 Work Phone: [facility]06-08-2023 10:15-0400Heart rate80 /min Infusion 8 Work Phone: [facility]06-08-2023 10:15-0400Systolic blood nbughjhv948 mm[Hg]Infusion 8 Work Phone: [facility]10-14-2022 09:47-0400Diastolic blood itjswobv05 mm[Hg]Jesse Borrego MD Work Phone: [facility]10-14-2022 09:47-0400Heart rate66 /min Jesse Borrego MD Work Phone: [facility]10-14-2022 09:47-6029AaC7% (BldA) [Mass fraction]100 %Jesse Borrego MD Work Phone: [facility]10-14-2022 09:47-0400Systolic blood mm[Hg]Jesse Borrego MD Work Phone: [facility]08-31-2022 12:00-0400Diastolic blood mm[Hg]Lucila Mota MD Work Phone: [facility]08-31-2022 12:00-0400Heart rate85 /minHolyoke Medical Centerradha Mota MD Work Phone: [facility]ENTERReocar [facility] KFEEEJ16-23-7704 12:00-0400 Respiratory rate12 /Anastasia Mota MD Work Phone: [facility]08-31-2022 12:00-7222SpT8% (BldA) [Mass fraction]98 %Lucila Mota MD Work Phone: [facility]08-31-2022 12:00-0400Systolic blood uhcqzmwc662 mm[Hg]Lucila oMta MD Work Phone: [facility]08-31-2022 08:00-0400Body xjdujvvcdwr69.2 [degF]Lucila Mota MD Work Phone: [facility]11-04-2021 19:36-0400Body kphlgzhvvby17 [degF]Keven Ching DO Work Phone: [facility] Work Phone: 1(645) 125-221911-04-2021 19:36-0400Diastolic blood mm[Hg] Keven Ching DO Work Phone: [facility] Work Phone: 1(292) 867-774911-04-2021 19:36-0400Heart xmdy631 /minAmanda Joshua DO Work Phone: [facility] Work Phone: 1(611) 655-459911-04-2021 19:36-0400Respiratory rate20 /minAmanda Joshua DO Work Phone: [facility] Work Phone: 1(860) 203-799611-04-2021 19:36-2991OsR2% (BldA) [Mass fraction]96 % Keven Ching DO Work Phone: [facility] Work Phone: 1(105) 921-836711-04-2021 19:36-0400Systolic blood pjotfxnr896 mm[Hg] Keven Ching DO Work Phone: [facility] Work Phone: Encounters Encounter DateEncounter [facility] ProviderFacilityStart: 12-20-2024 End: 36-20-2816Hkdyjn outpatient visit 25 minutesAssumpta Radha Nnaji COUNTER CHECKER-AGENCY SALES REPRESENTATIVE Work Phone: [facility] Family MedicineComment on above: Moderate persistent asthma without complication (Primary Dx); Watery eyes; Seasonal allergic rhinitis, unspecified triggerStart: 12-17-2024 End: 26-80-3877Izxysn outpatient visit 25 minutesVincent Peña DO Work Phone: [facility] Pulmonary/Sleep MedicineComment on above:Moderate persistent asthma without complication (Primary Dx); Gastroesophageal reflux disease without esophagitis; Environmental allergiesStart: 12-13-2024 End: 39-69-3218gewywlvodnCHAFNWL SCHAEFERFacility:[facility] Start: 12-12-2024 End: 21-79-2406Wdbcmbyrq encounterCorine Gold MD Work Phone: [facility] Comment on above:Sleep Lab (Comp PSG/PAP)Start: 12-12-2024 End: 40-42-5399yyhansnqzmADKVZybmhivh:[facility] Campustart: 12-11-2024 End: 33-21-6956jdbjgdncyvCMDI GREENFacility:[facility] Campustart: 12-10-2024 End: 16-84-5592Jhycfa outpatient visit 25 minutesCorine Gold MD Work Phone: [facility] Family MedicineComment on above: JUAN DAVID (obstructive sleep apnea) (Primary Dx)Start: 12-09-2024 End: 11-42-2543MtyjxiGdglye M Elston DO Work Phone: [facility] Pulmonary/Sleep MedicineComment on above:Moderate asthma with acute exacerbation, unspecified whether persistent Start: 89-17-9003kykmcnmpcbNpygrqancpy AbdelazizFacility:[facility] Systemtart: 11-26-2024 End: 00-05-5666enydftwptsRDFEDOR SCHAEFERFacility:[facility] Start: 10-24-2024 End: 97-44-5420Pmostg outpatient visit 15 minutesAlexaluisa Hart COUNTER CHECKER-AGENCY SALES REPRESENTATIVE Work Phone: [facility] Family MedicineComment on above: Left otitis media, unspecified otitis media type (Primary Dx); Mild asthma with exacerbation, unspecified whether persistentStart: 09-30-2024 End: 09-44-3272Xyqcua Gabriel Peña DO Work Phone: [facility] Pulmonary/Sleep MedicineComment on above:Moderate persistent asthma, unspecified whether complicatedStart: 09-29-2024 End: 03-65-1029PephlyAkkfgfs M Asif MD Work Phone: [facility] Family MedicineComment on above: Muscle spasmStart: 09-24-2024 End: 11-81-3202vzafoytcxvOCHNTEO SCHAEFERFacility:[facility] Start: 09-03-2024 End: 38-94-2211Mctdgq flowsheetCorey Roopa DO Work Phone: [facility] BCP OBStart: 09-03-2024 End: 93-12-1245Hbhyqd flowsheetCorey Roopa DO Work Phone: noms BCP OBStart: 09-03-2024 End: 75-18-6416Hiydmb outpatient visit 15 minutesCorey Roopa DO Work Phone: [facility] BCP OBComment on above:Hot flashes due to surgical menopauseStart: 09-03-2024 End: 28-01-9776ogbhulgzkfXCCTA FAZIONot AvailableStart: 09-02-2024 End: 51-13-3341Phcsqu OnlyKoli Green COUNTER CHECKER.AGENCY SALES REPRESENTATIVE Work Phone: [facility] [place] FHCComment on above:Intractable chronic migraine without aura and without status migrainosus (Primary Dx)Start: 08-30-2024 End: 70-12-5980Dgkzsb OnlyKoli Green COUNTER CHECKER.AGENCY SALES REPRESENTATIVE Work Phone: [facility] [place] FHCStart: 08-26-2024 End: 37-28-6401Sxcmie LadiMali Hart COUNTER CHECKER-AGENCY SALES REPRESENTATIVE Work Phone: [facility] Family MedicineComment on above: Allergic reaction, sequela (Primary Dx)Start: 08-16-2024 End: 50-69-3219bfjrpwzijiPdtz Green APRN.AGENCY SALES REPRESENTATIVE Work Phone: [facility] [place] FHCComment on above:InfusionStart: 08-15-2024 End: 75-99-0571cpobgaekszJonzykw Schaefer PA-C Work Phone: NeurologyComment on above:Heads poundingStart: 08-05-2024 End: 31-61-2707Aoxotqwva encounterChelsea [facility] Home DeliveryComment on above:Insurance Authorization (Zavzpret 10MG/ACT solution); Zavzpret 10MG/ACT solutionStart: 08-02-2024 End: 85-24-7365Rlxvpic encounter procedureMajakub Lepe PA-C Work Phone: NeurologyComment on above:Intractable chronic migraine without aura and with status migrainosus (Primary Dx); Status migrainosusStart: 08-02-2024 End: 21-04-8040fxijkpnkymLltytbfl Main Chair 5 Work Phone: NeurologyComment on above:Chronic migraine without aura, with intractable migraine, so stated, with status migrainosus (Primary Dx); Intractable chronic migraine without aura and with status migrainosusStart: 08-01-2024 End: 34-82-3863pqdvfndjmsOpuimntz Main Chair 7 Work Phone: NeurologyComment on above:Intractable chronic migraine without aura and without status migrainosus (Primary Dx)Start: 07-24-2024 End: 67-89-7882Qklumh outpatient visit 25 minutesHalima Johns APRN-AGENCY SALES REPRESENTATIVE Work Phone: [facility] Family MedicineComment on above: Eye infection, bilateral (Primary Dx); Ingrown nail of great toeStart: 07-05-2024 End: 80-59-4040Hpijuwycbbnyd procedureJoOSS Health ClinicComment on above:Received BHP FAXStart: 07-05-2024 End: 27-37-0834Ejvyrqqqq encounterMajakub Lepe PA-C Work Phone: NeurologyComment on above:Infusion (Headache infusion scheduling)Start: 07-04-2024 End: 23-49-1354Axpmsyvv HealthMattmaximilian Lepe PA-C Work Phone: NeurologyComment on above:Status migrainosus (Primary Dx); Intractable chronic migraine without aura and without status migrainosus; Generalized anxiety disorder; Chronic migraine without aura, with intractable migraine, so stated, with status migrainosus; Intractable chronic migraine without aura and with status migrainosusStart: 07-01-2024 End: 54-23-3816Mbnegv flowsheetCorey Roopa DO Work Phone: NOWN BCP OBStart: 07-01-2024 End: 76-12-7372Psjtdd flowsheetCorey Roopa DO Work Phone: noms BCP OBStart: 07-01-2024 End: 96-55-2468Fuhabb outpatient visit 15 minutesCorey Roopa DO Work Phone: noms BCP OBComment on above:Yeast infection; BV (bacterial vaginosis); Low libido; Dyspareunia in femaleStart: 07-01-2024 End: 41-80-1062shwhcpvwccSJAOJ FAZIONot AvailableStart: 06-25-2024 End: 16-43-4380Dnwjjqbao encounterViktoria Walton MS, CGC Work Phone: Genetics ClinicComment on above:Genetic Testing Prior Authorization RequestStart: 06-11-2024 End: 59-46-5544qtavyqwnzyDUOHNRR M [facility] Centertart: 06-10-2024 End: 73-98-0048Abeoul OnlyViktoria Walton MS, CGC Work Phone: Genetics ClinicStart: 06-07-2024 End: 16-34-3836Gtyrteeeh encounterGtramya Fernández JohnProMedica Call CenterStart: 06-06-2024 End: 58-58-5442Nohygr outpatient visit 25 minutesCorine Gold MD Work Phone: [facility] Family MedicineComment on above: Weight loss (Primary Dx); Moderate persistent asthma with acute exacerbation; Seasonal allergic rhinitis, unspecified triggerStart: 06-06-2024 End: 39-62-4192WwomgoAktlppf M Asif MD Work Phone: [facility] Family MedicineComment on above: Seasonal allergic rhinitis, unspecified triggerStart: 05-31-2024 End: 17-80-2037SdnzpfBahbShaw Barth APRN.CNP Work Phone: Neurology [facility] FHCComment on above:Refill RequestStart: 05-24-2024 End: 14-35-3802AxcseeMfqgii M Elston DO Work Phone: [facility] Pulmonary/Sleep MedicineComment on above:Moderate persistent asthma, unspecified whether complicatedStart: 05-21-2024 End: 81-28-1298Qgjvum outpatient visit 15 minutesRajinder Cotton DO Work Phone: [facility] Family MedicineComment on above: Moderate persistent asthma with acute exacerbation (Primary Dx); Acute pansinusitis, recurrence not specified; Antibiotic-induced yeast infectionStart: 05-15-2024 End: 54-71-4226Wrpetv follow up visit related to original Edgardo HERNANDEZ Work Phone: [facility] - Medical OncologyComment on above:S/P bilateral salpingo-oophorectomy (Primary Dx); Menopausal symptomsStart: 05-07-2024 End: 04-12-1886Xhdeuaipl encounterAngely Cotton RN Work Phone: [facility] Home DeliveryComment on above: Insurance Authorization; ubrelvyStart: 05-03-2024 End: 02-82-2860Hfczrouk [facility] Memorial Hospitalmaximilian Lepe PA-C Work Phone: NeurologyComment on above:Intractable chronic migraine without aura and with status migrainosus (Primary Dx); Nausea; Generalized anxiety disorderStart: 05-02-2024 End: 57-95-8119Ckqpta Martin HERNANDEZ Work Phone: [facility], A Department [facility] LimaComment on above:Postoperative infection, unspecified type, subsequent encounter (Primary Dx)Chronic migraine without aura, with intractable migraine, so stated, with status migrainosus (Primary Dx); Intractable chronic migraine without aura and with status migrainosus; Intractable chronic migraine without aura and without status migrainosusStart: 05-01-2024 End: 97-07-8697Jtipzt Gabriel Peña DO Work Phone: [facility] Pul[facility]/Sleep MedicineComment on above:Moderate persistent asthma, unspecified whether complicatedStart: 04-30-2024 End: 17-08-1367Qfflkcimp encounterCaterina Smith CMAProMedica Physicians Family MedicineStart: 04-29-2024 End: 86-75-5826Tbufrx OnlyMali MCCLAIN Work Phone: [facility] Family MedicineComment on above: Postoperative surgical complication involving genitourinary system associated with genitourinary procedure, unspecified complicationStart: 04-25-2024 End: 13-74-0204Ysmoxk outpatient new 45 minutesCorine Gold MD Work Phone: [facility] Family MedicineComment on above: Muscle spasm (Primary Dx); Fatigue due to depression; Nausea and vomiting, unspecified vomiting type; Mild persistent asthma without status asthmaticus without complication; Psychogenic nonepileptic seizureStart: 04-24-2024 End: 23-09-9497Vyttfuiozzaks procedureCanraghu Antonio [facility] - Medical OncologyStart: 04-24-2024 End: 16-86-5791Aywqed follow up visit related to original pxCourtney Ye PA Work Phone: [facility] - Medical OncologyComment on above:Post-operative pain (Primary Dx)Start: 04-19-2024 End: 26-11-0672kinmoekegqMvjh Green APRN.AGENCY SALES REPRESENTATIVE Work Phone: Neurology [facility] FHCComment on above:InfusionsStart: 04-16-2024 End: 41-34-0735Haocgg flowsheetCorey Roopa DO Work Phone: [facility]oms BCP OBStart: 04-16-2024 End: 33-47-8072Lhplpq flowsheetCorey Roopa DO Work Phone: [facility] BCP OBStart: 04-16-2024 End: 56-29-3570Vbxqqcmkm Result EncounterGeneric External Data ProviderNOMS External Department UnsolicitedStart: 04-16-2024 End: 13-61-6931dbdeeqdsghUJXHN FAZIONot AvailableStart: 04-16-2024 End: 20-49-1134Yzwwfiq encounter procedureCorey Roopa DO Work Phone: [facility] Work Phone: Start: 04-16-2024 End: 12-95-0186Xmbrgxuy preventive med est patient 18-39 yrsCorey Roopa DO Work Phone: [facility]oms BCP OBComment on above:Well woman exam with routine gynecological examStart: 04-15-2024 End: 55-73-5825Sunixj follow up visit related to original Edgardo HERNANDEZ Work Phone: [facility], [facility] Department of [facility]imaComment on above:Postoperative surgical complication involving genitourinary system associated with genitourinary procedure, unspecified complication (Primary Dx); Post-op pain; Sweating profusely; Menopausal symptoms; Nausea and vomiting, unspecified vomiting typeStart: 04-08-2024 End: 60-58-4995Zrjogvtmg encounterMaleonora Ku [facility]ENTERPro[facility], A [facility] Centertart: 04-08-2024 End: 74-49-8899Qlytfutett and management of inpatientDaconstantine Melton DO Work Phone: [facility] - GEN 6 AcuteComment on above:Postoperative surgical complication involving genitourinary system associated with genitourinary procedure, unspecified complication (Primary Dx) Start: 04-02-2024 End: 54-95-6297zczuppjoiqXIWVF FAZIONot AvailableStart: 04-02-2024 End: 05-35-3531Wfkewu outpatient visit 10 minutesCorey Roopa DO Work Phone: [facility] BCP OBComment on above:Visit for wound check; Yeast infectionStart: 04-01-2024 End: 79-86-2992Xhpvkx Martin HERNANDEZ Work Phone: [facility], A Department of [facility]imaComment on above:S/P bilateral salpingo-oophorectomy Post-op pain (Primary Dx)Start: 03-25-2024 End: 39-64-7322Xpqxoit encounter statusMet71 [address] Streettart: 03-25-2024 End: 73-44-0993Bpiphc Michelle Martinez MD Work Phone: [facility], A Department of [facility] LimaComment on above:Preop testing (Primary Dx); Bilateral ovarian cystsStart: 03-21-2024 End: 14-42-0938Aorrrwtzj encounterMundo Martinez MD Work Phone: [facility], A Department of [facility] LimaComment on above:Other (Surgery questions)Start: 03-21-2024 End: 40-80-3059ohiysiymvlFinyLuis Barth APRN.CNP Work Phone: Neurology [facility] [place] FHCComment on above:Intractable chronic migraine without aura and without status migrainosus (Primary Dx)Start: 03-21-2024 End: 15-01-2298Qfhrhapkobmr consultation with patientKoli Green COUNTER CHECKER.AGENCY SALES REPRESENTATIVE Work Phone: Neurology [facility] Citytart: 03-20-2024 End: 22-86-9628Wkpqem outpatient new 45 minutesVincent Peña DO Work Phone: [facility] Pulmonary/Sleep MedicineComment on above:Asthma, unspecified asthma severity, unspecified whether complicated, unspecified whether persistent (Primary Dx); Bilateral ovarian cysts; Moderate asthma with acute exacerbation, unspecified whether persistent; Encounter for preoperative pulmonary examination; Pulmonary nodule; Gastroesophageal reflux disease, unspecified whether esophagitis presentStart: 03-20-2024 End: 34-16-2618Xqfyxpsaozxt stateMundo Martinez MD Work Phone: [facility] CampusClaimSync Strong Memorial Hospitaltart: 03-20-2024 End: 47-68-9519Iacheb Michelle Martinez MD Work Phone: [facility] Gynecology Oncology, A Department of [facility] LimaComment on above:Bilateral ovarian cysts (Primary Dx); Moderate asthma with acute exacerbation, unspecified whether persistent; Encounter for preoperative pulmonary examinationAcute cough [R05.1] (Primary Dx) Start: 03-19-2024 End: 76-14-2064Llqhip Michelle Martinez MD Work Phone: [facility] Gynecology Oncology, A Department of [facility] LimaComment on above:Bilateral ovarian cysts (Primary Dx); Preop testingStart: 03-19-2024 End: 14-14-4913Rsfylzh encounter statusMundo Martinez MD Work Phone: [facility] CampusClaimSync SystemStart: 03-18-2024 End: 33-47-0170Gffrqz outpatient new 60 minutesMundo Martinez MD Work Phone: [facility] Gynecology Oncology, A Department of [facility] LimaComment on above:Cyst of right ovary (Primary Dx)Start: 03-06-2024 End: 23-21-7238Tjbthg outpatient visit 15 minutesCorey Roopa DO Work Phone: noms BCP OBComment on above:Cyst of right ovary; Pelvic pain in female; Pelvic peritoneal adhesions, femaleStart: 03-06-2024 End: 41-79-4584utcziehrioTLSWF FAZIONot AvailableStart: 02-28-2024 End: 52-16-9948Jgchqm flowsheetCorey Roopa DO Work Phone: noms BCP OBStart: 02-28-2024 End: 26-32-0682Qdensz flowsheetCorey Roopa DO Work Phone: noms BCP OBStart: 02-28-2024 End: 11-32-6633tndqdlgdnjESSBL FAZIONot AvailableStart: 02-28-2024 End: 77-86-1838Znsbdm outpatient visit 15 minutesCorey Roopa DO Work Phone: noms BCP OBComment on above:Pelvic pain in female; Complex ovarian cystStart: 02-26-2024 End: 38-54-5337Kfngrbmhg encounterLamont Blair MD Work Phone: noms CI FMStart: 02-22-2024 End: 11-48-7610Cnkplcjiz encounterSagar Barth APRN.CNP Work Phone: Neurology [facility] FHCComment on above:Insurance Authorization (Zolmitriptan)Start: 02-19-2024 End: 80-13-8021Uljtltrww Result EncounterGeneric External Data ProviderNOMS External Department UnsolicitedStart: 02-19-2024 End: 23-37-1714Silwdlzqq Result EncounterGeneric External Data ProviderNOMS External Department UnsolicitedStart: 02-16-2024 End: 93-90-6798newqfpkasjUfhexms J DittyFacility:[facility] Health Systemtart: 02-09-2024 End: 64-51-6587Jferdh outpatient visit 25 minutesLamont Blair MD Work Phone: noms CWM FMComment on above:Generalized abdominal pain (Primary Dx); Intractable nausea and vomiting; Mild persistent asthma with (acute) exacerbation (CMS/HCC)Start: 02-09-2024 End: 81-90-9237wfzkoqmzbwUOCU NADERERNot AvailableStart: 01-31-2024 End: 80-29-3486Fcijksgnj Result EncounterGeneric External Data ProviderNOMS External Department UnsolicitedStart: 01-31-2024 End: 04-73-1772Pphxsrqqa Result EncounterGeneric External Data ProviderNOMS External Department UnsolicitedStart: 01-29-2024 End: 97-92-5799Tjwzsjpot encounterSagar Barth APRN.CNP Work Phone: [facility] FHtart: 01-24-2024 End: 97-33-1975VzucpcYuli Blair MD Work Phone: NOQV CWM FMComment on above:COVID-19Start: 01-23-2024 End: 14-96-8830Vbwmtc Christina Blair MD Work Phone: [facility] CWM FMStart: 01-23-2024 End: 91-11-4403Otocah Christina Blair MD Work Phone: [facility] CWM FMStart: 01-23-2024 End: 48-63-0648Tosrbt outpatient visit 25 minutesLamont Blair MD Work Phone: [facility] CWM FMComment on above:Mild persistent asthma with (acute) exacerbation (CMS/HCC) (Primary Dx); Generalized edema; SOB (shortness of breath) on exertionStart: 01-23-2024 End: 67-92-9053antwqxhnrdPCPJ NADERERNot AvailableStart: 01-22-2024 End: 62-39-0095Oqhibva encounter Juan J Shields APRN.CNP Work Phone: NeurologyComment on above:Chronic migraine without aura, with intractable migraine, so stated, with status migrainosus (Primary Dx) Start: 01-22-2024 End: 12-70-3939xesipepzlrHzybamtk Main Chair 1 Work Phone: NeurologyComment on above:Chronic migraine without aura, with intractable migraine, so stated, with status migrainosus (Primary Dx); Intractable chronic migraine without aura and with status migrainosusStart: 01-20-2024 End: 04-15-7830JsgfykWgjg Naderer MD Work Phone: [facility] CWM FMComment on above:Pain, dentalStart: 01-19-2024 End: 81-33-7572gpdfmuwglhVhbbznle Main Chair 5 Work Phone: NeurologyComment on above:Chronic migraine without aura, with intractable migraine, so stated, with status migrainosus (Primary Dx); Intractable chronic migraine without aura and with status migrainosusStart: 01-17-2024 End: 14-36-7923yaciczohduPumgepgj Main Chair 6 Work Phone: NeurologyComment on above:Chronic migraine without aura, with intractable migraine, so stated, with status migrainosus (Primary Dx); Intractable chronic migraine without aura and with status migrainosusStart: 01-16-2024 End: 71-63-6761dituikmfvwAdsy Tab SEO Work Phone: Neurology [facility] [place] FHCComment on above:Please helpStart: 01-09-2024 End: 55-08-5944Zyyxjc Christina Blair MD Work Phone: [facility] CWM FMStart: 01-09-2024 End: 65-16-1425Lukopa Christina Blair MD Work Phone: [facility] CWM FMStart: 01-09-2024 End: 47-71-0824Lxgjnt outpatient visit 25 minutesLamont Blair MD Work [...] not intractable (CMS/HCC); Pain, dentalStart: 01-09-2024 End: 95-70-9601jfrfbboovfYLGA SUKHRMaia AvailableStart: 01-05-2024 End: 14-50-2091xblwzczukvMzntwhgx Main Chair 8 Work Phone: NeurologyComment on above:Intractable chronic migraine without aura and without status migrainosus (Primary Dx)Start: 12-11-2023 End: 74-78-8243Ifrygf flowsheetCorey Roopa DO Work Phone: NOFK BCP OBStart: 12-11-2023 End: 83-26-9060Vagipk flowsheetCorey Roopa DO Work Phone: NOZM BCP OBStart: 12-11-2023 End: 41-84-6613kyrunkpfpvKJISV FAZIONot AvailableStart: 12-05-2023 End: 73-69-0501jdefhkkdlbFfdfs J Stiffler APRN.AGENCY SALES REPRESENTATIVE Work Phone: NeurologyComment on above:Intractable chronic migraine without aura and without status migrainosus (Primary Dx)Start: 12-05-2023 End: 66-79-6208Wfjdkbuizwik consultation with Brendan Shabazz APRN.AGENCY SALES REPRESENTATIVE Work Phone: NeurologyStart: 11-15-2023 End: 87-14-4716Wvguxm Christina Blair MD Work Phone: [facility] CWM FMStart: 11-15-2023 End: 10-91-4693Xhtpoq Christina Blair MD Work Phone: [facility] CWM FMStart: 11-15-2023 End: 05-54-4876Tpkxrx outpatient visit 15 minutesLamont Blair MD Work Phone: [facility] CWM FMComment on above:Acute bronchitis due to other specified organisms (Primary Dx); Mixed bipolar I disorder (CMS/HCC)Start: 11-15-2023 End: 29-27-7184hhpyycttbrBZRW NADERERNot AvailableStart: 11-10-2023 End: 51-07-2349HxftetSwofkzlRandy Lepe PA-C Work Phone: NeurologyComment on above:Refill RequestStart: 11-06-2023 End: 20-80-9543Etdpfq Jose Maria Mustafa NP Work Phone: [facility] CWM FMComment on above:Severe persistent asthma without complication (CMS/HCC)Start: 10-13-2023 End: 41-02-5529tgmgikdxzmUblnmryh Main Chair 8 Work Phone: NeurologyComment on above:Intractable chronic migraine without aura and without status migrainosus (Primary Dx)Start: 10-10-2023 End: 92-53-5750Txlrtb flowsLou Blair MD Work Phone: [facility] CWM FMStart: 10-10-2023 End: 97-82-0207Biahtm flowsLou Blair MD Work Phone: [facility] CWM FMStart: 10-10-2023 End: 56-14-4968Zythif outpatient visit 15 minutesLamont Blair MD Work Phone: [facility] CWM FMComment on above:Acute bronchitis due to other specified organisms (Primary Dx); Mild persistent asthma with (acute) exacerbation (CMS/HCC)Start: 10-10-2023 End: 77-49-4454gjolltxvprBEZK NADERERNot AvailableStart: 09-25-2023 End: 07-24-9104haqvzlmpvnOSYTR FAZIONot AvailableStart: 09-19-2023 End: 63-50-3634Mbulegf encounter Malina Barth APRN.CNP Work Phone: Neurology [facility] [place] FHCComment on above:Intractable chronic migraine without aura and without status migrainosus (Primary Dx)Start: 08-18-2023 End: 45-94-5502Egaytkb encounter procedureCurtis Lepe PA-C Work Phone: NeurologyComment on above:Intractable chronic migraine without aura and without status migrainosus (Primary Dx); Psychogenic nonepileptic seizureStart: 01-03-2438dtcjcftpgsLyirLuis Barth APRN.CNP Work Phone: [facility] HospitalCStart: 67-84-2368Xgofhhlozg hospital visit by Randolph Barth APRN.CNP Work Phone: Neurology [facility] [place] FHCComment on above:Hospital visitStart: 74-38-0991ipprxxuizeDmpaLuis Barth APRN.CNP Work Phone: [facility]rolog [facility] HospitalCComment on above:InjectionStart: 07-10-2023 End: 80-76-0462hkqnilphqdWubhLuis Barth APRN.CNP Work Phone: Neurology [facility] [place] FHCComment on above:Intractable chronic migraine without aura and without status migrainosus (Primary Dx)Start: 07-10-2023 End: 32-75-1829Ffmozvplveee consultation with Aditya Barth APRN.CNP Work Phone: Neurolog [facility] [place] FHCStart: 14-12-5161uqfbyuzarxItildVarsha Shabazz APRN.CNP Work Phone: NeurologyComment on above:ConcernHeadacheStart: 04-14-2023 End: 17-73-8568jyzyytxfxwWsmbuqog Main Chair 7 Work Phone: NeurologyComment on above:Chronic migraine without aura, with intractable migraine, so stated, with status migrainosus (Primary Dx); Intractable chronic migraine without aura and with status migrainosusStart: 04-14-2023 End: 07-86-6028Gaozfye encounter procedureSuzan Ivey APRN.CNP Work Phone: NeurologyComment on above:Intractable chronic migraine without aura and with status migrainosus (Primary Dx); Intractable chronic migraine without aura and without status migrainosusStart: 42-96-5945Dzxnfjoxc encounterSagar Barth APRN.CNP Work Phone: NeurologyComment on above:Appointment (Patient currently receiving infusions for headache. She is interested in learning about reboot program. Please schedule patient for evaluation if appropriate to proceed.)Start: 04-13-2023 End: 15-42-7381lqrahnyuesLpoynvxa Main Chair 7 Work Phone: NeurologyComment on above:Chronic migraine without aura, with intractable migraine, so stated, with status migrainosus (Primary Dx); Intractable chronic migraine without aura and with status migrainosusStart: 04-12-2023 End: 27-38-8376Rkixgbc encounter Frank Ivey APRN.CNP Work Phone: NeurologyComment on above:Intractable chronic migraine without aura and with status migrainosus (Primary Dx)Start: 04-12-2023 End: 78-53-7345nvxabnizrtKbxgcbat Main Chair 7 Work Phone: NeurologyComment on above:Chronic migraine without aura, with intractable migraine, so stated, with status migrainosus (Primary Dx); Intractable chronic migraine without aura and with status migrainosusStart: 58-29-4054Emxssnhtd encounterAngely Cotton RN Work Phone: [facility] Home DeliveryComment on above: Insurance Authorization (Aimovig 70MG/ML auto-injectors/)Start: 58-08-8578Fafriy Sagar Barth APRN.CNP Work Phone: Neurology [facility] [place] FHCComment on above:Refill RequestInfusion (HEADACHE INFUSIONS)Start: 60-09-2890DtdzhyZsfukLul Shabazz APRN.CNP Work Phone: NeurologyComment on above:Refill RequestStart: 11-11-2022 End: 43-70-9132beywrqoxvuPconiqje Main Chair 8 Work Phone: NeurologyComment on above:Intractable chronic migraine without aura and with status migrainosus (Primary Dx)Start: 11-10-2022 End: 21-49-0011qqlzkofcvcVltayVarsha Shabazz APRN.CNP Work Phone: NeurologyComment on above:Intractable chronic migraine without aura and with status migrainosus (Primary Dx)Nerve blockStart: 23-78-2647Ghtsfmwtm encounterSuzan Ivey APRN.CNP Work Phone: NeurologyComment on above:InfusionStart: 11-10-2022 End: 84-28-7132Apkusmgadnhl consultation with Brendan Shabazz APRN.CNP Work Phone: [facility] MAINStart: 96-83-9283jdqhfaacei Suzan Ivey APRN.CNP Work Phone: NeurologyComment on above:BotoxStart: 46-31-0643Q-mail encounter from caregiverSuzan Ivey APRN.CNP Work Phone: [facility] MAINStart: 63-95-6296Dkvxlljdn encounterAngely Cotton RN Work Phone: [facility] Home DeliveryComment on above: Insurance Authorization (Zomig 5MG nasal spray/)Start: 17-03-5085orhpcvvyrzScqeLuis Barth APRN.CNP Work Phone: [facility]UR HEADACHE [facility] INDEPENDENCEComment on above:My apt Fridaystart: 93-40-9453rdfgnwirtpXjyxJuanjose Barth APRN.CNP Work Phone: [facility] FHCStart: 30-77-3263Pobzdjy encounter procedureSagar Barth APRN.CNP Work Phone: NEUR HEADACHE [facility] INDEPENDENCEComment on above: AppointmentStart: 08-31-2022 End: 85-52-2181oqmtkfmtqlJnybJuanjose Barth APRN.CNP Work Phone: NeurologyComment on above:Chronic migraine w/o aura, not intractable, w/o stat migr (Primary Dx)Start: 08-31-2022 End: 88-48-1188Mwahpgiloawg consultation with Aditya Barth APRN.FADY Work Phone: [facility] MAINStart: 38-41-9800zsbgjydwcb Sagar Barth APRN.AGENCY SALES REPRESENTATIVE Work Phone: NEUR HEADACHE [facility] INDEPENDENCEComment on above:Pain Start: 08-08-2022 End: 54-73-8261fxmnfkpubjIfaoxeu Samples Work Phone: NeurologyComment on above:Intractable chronic migraine without aura and with status migrainosus (Primary Dx)Start: 08-08-2022 End: 46-30-1538Svbnaodhnymc consultation with Jodi Borrego MD Work Phone: [facility]INStart: 99-39-8808exbxsxlcqt Jesse Samples Work Phone: NeurologyComment on above:Name of medicationStart: 07-28-2022 End: 27-49-5786pwlietprbhNvjuhdft Main Chair 8 Work Phone: NeurologyComment on above:Intractable chronic migraine without aura and with status migrainosus (Primary Dx)Start: 07-21-2022 ambulatoryDR ZAY ROOPA .Facility:H7Kisjn: 85-34-6531Bkspbvper for other preprocedural examinationDR ZAY ROOPA .[facility] 07-12[facility]2022 End: 55-58-1627ubyortixvlDS ZAY ROOPA .Facility:K9Mbvmo: 07-12-2022 End: 68-81-0108Ebjtmrjia for other preprocedural examinationDR ZAY ROOPA . Facility:Q4Asbzx: 30-02-5986vfzocbnbllRK-C SUZAN Paytoncility:[facility] Start: 68-62-4014Ipuiujrqb encounterSagar Barth APRN.CNP Work Phone: NeurologyComment on above:Appointment (infusion)Start: 06-20-2022 End: 70-43-2665twakzgylvnANZSE SAYFacility:R4Xubhl: 06-19-2022 End: 94-80-1892idymijuuanDVSNCR RODRIGUEZ .Facility:Y1Fxhsy: 30-68-0670Eybznbpyq to establishmentStephen Samples Work Phone: NeurologyComment on above:AdmissionStart: 06-13-2022 ambulatoryStephen Samples Work Phone: [facility] IIIStart: 06-11-2022 End: 86-72-6056cotmgaofguLTFVQMD RAPP .Facility:Y0Jpevq: 06-08-2022 End: 22-46-2874roffjfoxynCD CHELO PAULINO .Facility:K8Aviqv: 06-07-2022 ambulatoryStephen Samples Work Phone: NeurologyComment on above:MigrainesStart: 05-23-2022 End: 27-91-5467rzenrfxzhcLRZXIYV M MANONFacility:Y6Elqcf: 05-08-2022 End: 79-37-9150snoxcpwxxtJYAOLW DIAB .Facility:D0Vyvwc: 03-31-2022 End: 59-49-3274tmienrkscqMC DERIK R DANIELSFacility:X4Kpnck: 01-14-2022 End: 52-12-7765unbjesojogCFYKFFU D KATKOFacility:S0Fvmmg: 01-07-2022 End: 95-24-6114zlzuitsbcoJDQPR PARKERFacility:G1Yoewp: 34-13-8480oncvaadevd Jesse Samples Work Phone: NeurologyComment on above:MedicationStart: 12-03-2021 End: 47-46-3368Qipldxa encounter procedureStephen Samples Work Phone: NeurologyComment on above:Chronic migraine w/o aura, not intractable, w/o stat migr (Primary Dx)Start: 11-10-2021 End: 15-61-1588vcedzcdgxzWortLibia Saldaña PA-C Work Phone: NeurologyComment on above:Seizure-like activity (HCC) (Primary Dx)Start: 11-10-2021 End: 21-65-4794Wcsvghgrfooh consultation with Farideh Saldaña PA-C Work Phone: [facility]INStart: 61-10-6829qfpkedglexsilas Dolan MD, PhD Work Phone: [facility]INStart: 59-61-6733Auwibek encounter Mj Dolan MD, PhD Work Phone: NeurologyComment on above:Request Veido appointment Start: 34-04-8186fzcushyxijYadru Ying MD, PhD Work Phone: [facility]INStart: 93-20-3168Qslaufp encounter Mj Dolan MD, PhD Work Phone: NeurologyComment on above:AppointmentStart: 11-08-2021 Telephone encounterTyrone Dolan MD, PhD Work Phone: NeurologyComment on above:OrdersStart: 11-04-2021 End: 79-76-1679ouflttqwywDSIAL PARKERFacility:V7Mntru: 10-29-2021 End: 00-54-1243rnisrrtquiRkddj Ying MD, PhD Work Phone: NeurologyComment on above:Psychogenic nonepileptic seizure (Primary Dx); Spells of trembling; Chronic intractable headache, unspecified headache typeStart: 10-29-2021 End: 07-47-7584Pzorxozsuyrc consultation with Alvaro Dolan MD, PhD Work Phone: [facility]INStart: 75-06-0058Ncxtiif encounter Becka Storey MD Work Phone: NeurologyComment on above:Seizure-like activity (HCC) (Primary Dx)Start: 10-19-2021 End: 41-42-9780Nixrkyznzf and management of [facility]ertart: 10-19-2021 End: 24-54-4433Vswptmhzxy and management of inpatientLucila Mota MD Work Phone: STVZ 1B Neuro ICUStart: 10-19-2021 End: 89-44-0421yenazrftduKBNHVN H FAWWADFacility:I0Dknkh: 10-07-2021 End: 01-16-8141tuzdcorwbtIO ZAYVikas GREERO .Facility:A4Nymuc: 10-06-2021 End: 23-98-6354txytthkxzpECSUHVF D KATKOFacility:J0Pobch: 10-03-2021 End: 92-51-5628yvknjdrytrSRBWU PARKERFacility:S8Aiecf: 10-01-2021 End: 98-37-1062Lqnnczoipd and management of inpatientDR DERIK WEBERFacility:H1 Start: 54-80-9458Ffeslomzx for preprocedural laboratory examinationDR ZAY BLAS .[facility] HospitalStart: 09-29-2021 End: 80-66-9023gchresrjukMU ZAY GREERO .Facility:G2Nwfbs: 09-29-2021 End: 64-02-0011Cxtjcrptb for preprocedural laboratory examinationDR ZAY GREERO .Facility:U3Dmama: 09-21-2021 End: 13-28-4601vcizewuzreSL DERIK WBEERFacility:D9Rvtnb: 09-14-2021 End: 79-85-1668cbfnkavuruYD DERIK WEBERFacility:G8Bhxeu: 08-14-2021 End: 81-72-1656qqhtuntufqAQZNSU RAUCHFacility:X3Dnbyn: 08-14-2021 End: 82-54-0719rjiesvaaehXCKBVJ RAUCHFacility:U2Sjnhd: 12-24-2020 End: 69-39-8385Cpglmdzbq department patient visitDERIK KENYONdrakevikas [facility]tart: 12-24-2020 End: 54-69-2056Gtozqomnv department patient visitJosetamela Joshua DO Work Phone: [facility] EDComment on above:Migraine without status migrainosus, not intractable, unspecified migraine type (Primary Dx)Start: 02-18-2020 End: 55-23-6765Dlntheyuz encounterImad Cordelia Work Phone: NeurologyComment on above:Future Appointment ([place], [place], [place]) Procedures DateProcedureProcedure DetailPerforming ClinicianStart: 65-86-4777Ovmnz depression screening assessmentAssumpta Raul COUNTER CHECKER-AGENCY SALES REPRESENTATIVE Work Phone: Start: 28-13-0323Jjwbw depression screening assessment Corine Gold MD Work Phone: Start: 89-75-3569Dvdnl depression screening assessment Halima Johns COUNTER CHECKER-AGENCY SALES REPRESENTATIVE Work Phone: Start: 84-14-8077Yhpay dip stick/tablet rgnt non-auto w/o micrscpCorey Roopa DO Work Phone: Start: 83-44-6890Lhyjd depression screening assessment Corine Gold MD Work Phone: Start: 63-92-4554IQI,APTIMA HPV,AGE GDLNCorey Roopa DO Work Phone: Start: 10-09-0288Maixhutaiuprx metabolic panelAnnetta Rodriguez MD Work Phone: start: 18-35-9392Pcijy s aureus methicillin resist amp probe tqJaziel Crump MD Work Phone: Start: 13-40-0374Xcxqj metabolic panel calcium total Katina Debra Mckayla DO Work Phone: start: 73-09-4872Ngy bact xcpt urine blood/stool aerobic Bárbara Toussaint MD Work Phone: Start: 81-40-6842Md abdomen & pelvis w/contrast materialJohnirene Velazquez MD Work Phone: Start: 04-08-2024 End: 03-61-5579Gddli metabolic panel calcium totalDaniel Compa Melton DO Work Phone: [phone]: 18-20-3833Ecrvtog function panelYordy Melton DO Work Phone: [phone]: 28-45-3323Sbvwq dip stick/tablet rgnt auto w/o microscopyDaconstantine Melton DO Work Phone: Start: 57-34-0131Todzuai bacterial quanttative colony count urineJosemaj Vleazquez MD Work Phone: Start: 95-19-4913Fyuoanzvnh exam chest single view Rohan Velazquez MD Work Phone: Start: 16-20-0690NOOM/FLU A+B/RSV BY NAAT/MOLECULAR (M4RT COLLECTION TUBE)Rohan Velazquez MD Work Phone: Start: 92-13-5261Lpc routine ecg w/least 12 lds trcg only w/o i&Cheryl Velazquez MD Work Phone: Start: 04-08-2024 End: 85-94-1400Iksjx count complete auto&auto difrntl wbcMotim Dixon MD Work Phone: Start: 04-08-2024 End: 27-74-4635Lyrcozr bacterial blood aerobic w/id isolatesDaconstantine Melton DO Work Phone: Start: 47-29-6449Uowxt depression screening assessment Svetlana HERNANDEZ Work Phone: Start: 44-82-2771Mqnjqwxi screenMetro 3Start: 11-71-4833Sxddt typing serologic Gabriela Martinez MD Work Phone: Start: 52-63-8262KVCJXLUT Tyson Martinez MD Work Phone: Start: 75-29-9585Gnv routine ecg w/least 12 lds trcg only w/o i&Verónica Martinez MD Work Phone: Start: 33-18-4586XVTENPEOW FUNCTION TESTSopal Peña DO Work Phone: Start: 83-21-5716IQ PELVIS W/ TRANSVAGINALGeneric External Data ProviderStart: 73-59-3011Zjbjqloe identified in Urine by Culture Generic External Data ProviderStart: 32-43-5198Wkxpv depression screening assessmentMundo Martinez MD Work Phone: Start: 66-32-7679Hzsqg depression screening assessment Tyrone Dolan MD, PhD Work Phone: Start: 54-42-3469VDK VIDEO MONITORINGMaanupama Perez COUNTER CHECKER - AGENCY SALES REPRESENTATIVE Work Phone: Start: 60-31-1233AYCJD METABOLIC PANEL W/ REFLEX TO MG FOR LOW KChan Rikki Mota MD Work Phone: Start: 13-00-8173Tqljk count complete auto&auto difrntl wbcMaanupama Perez COUNTER CHECKER - AGENCY SALES REPRESENTATIVE Work Phone: Start: 31-43-1374WOVLWHHX PLATELET FRACTIONMaanupama Perez COUNTER CHECKER - AGENCY SALES REPRESENTATIVE Work Phone: Start: 38-33-5536Urceu of lactateMaanupama Perez COUNTER CHECKER - AGENCY SALES REPRESENTATIVE Work Phone: Start: 77-60-0448Wjz routine ecg w/least 12 lds w/i&r Lo Perez COUNTER CHECKER - AGENCY SALES REPRESENTATIVE Work Phone: Start: 49-87-9541Mbd brain brain stem w/o w/contrast materialMaanupama Perez COUNTER CHECKER - AGENCY SALES REPRESENTATIVE Work Phone: Start: 75-84-2556UPNDAHECBRP CARE EVALUATION ONLY Lo Perez COUNTER CHECKER - AGENCY SALES REPRESENTATIVE Work Phone: Start: 19-19-5126Lauhrzcxq of Bilateral Fallopian Tubes, Open ApproachINGRID BRICE .Start: 09-06-9276Caqwmyjjj of Uterus, Open ApproachINGRID BRICE .Start: 76-58-7704Hdhfy count complete auto&auto difrntl wbcKeven Ching DO Work Phone: Start: 82-94-4410Fj head/brain w/o contrast material Keveneduardo Ching DO Work Phone: Plan of Treatment DateCare ActivityDetailAuthorStart: 29-79-6571Zfcxx BMI ScreeningAdult BMI ScreeningBethesda North Hospital SystemStart: 55-82-0360Fyhiludvbh ScreeningDepression ScreeningSt. Mary's Medical [facility] Campusca [facility] SystemStart: 12-20-6642Ytzctxp ScreeningTobacco ScreeningSt. Mary's [facility], [facility] Campusca [facility] SystemStart: 94-48-8724Ehupx BMI ScreeningAdult BMI ScreeningSt. Mary's [facility] Campusca [facility] SystemStart: 56-99-0675Ipyvjpf ScreeningTobacco ScreeningSt. Mary[facility] Campusca [facility] SystemStart: 51-19-6069Brnzc BMI ScreeningAdult BMI ScreeningSt. Mary[facility] Campusca [facility] SystemStart: 94-59-1655Iisshrgvxt ScreeningDepression ScreeningBethesda North Hospital SystemStart: 03-04-7092Sfbwrgw ScreeningTobacco ScreeningBethesda North Hospital SystemStart: 28-80-9286Jkuao BMI ScreeningAdult BMI ScreeningSt. Mary[facility] Campusca [facility] SystemStart: 67-38-7326Qdmej BMI ScreeningAdult BMI ScreeningSt. [facility] Campusca [facility] SystemStart: 38-72-9013Lwofxfh ScreeningTobacco ScreeningBethesda North Hospital SystemStart: 99-20-2511CYpP,Tdap and Td Vaccines (7 - Td or Tdap)DTaP,Tdap and Td Vaccines (7 - Td or Tdap)[facility] Start: 16-75-2015TWdF/Tdap/Td vaccine (7 - Td or Tdap)DTaP/Tdap/Td vaccine (7 - Td or Tdap)[facility]ITALStart: 48-44-3726Yrrox microalbumin profile [facility] Centertart: 28-77-1850Pbzyl BMI ScreeningAdult BMI ScreeningBethesda North Hospital SystemStart: 46-05-2316Czeqoqhbcq ScreeningDepression ScreeningBethesda North Hospital SystemStart: 90-74-8872Oejsgqw ScreeningTobacco ScreeningSt. [facility] Campusca [facility] SystemStart: 26-07-3121Hcioiid ScreeningTobacco ScreeningSt. [facility] Campusca [facility] SystemStart: 13-22-9645Orhdf BMI ScreeningAdult BMI ScreeningProLancaster Municipal Hospitalca [facility] SystemStart: 62-26-7976Hgqpwjv ScreeningTobacco ScreeningMer[facility] Health [facility] Start: 64-82-0751Tfnxd BMI ScreeningAdult BMI ScreeningSt. Mary's [facility] Campusca [facility] Start: 08-75-2678Wchsoqs ScreeningTobacco ScreeningSt. [facility] Campusca [facility] SystemStart: 39-77-9961Fcady BMI ScreeningAdult BMI ScreeningSt. Mary[facility] Campusca [facility] SystemStart: 51-50-0029Kgtdxsrsfp ScreeningDepression ScreeningSt. [facility] Campusca [facility] SystemStart: 77-62-0887Ziquwvk ScreeningTobacco ScreeningSt. [facility] Campusca [facility] SystemStart: 68-95-9301Iijmk BMI ScreeningAdult BMI ScreeningSt. Mary's [facility] Campusca [facility] SystemStart: 81-41-9397Lxzll BMI ScreeningAdult BMI ScreeningSt. [facility] Campusca [facility] SystemStart: 06-26-4902Eugxigixry ScreeningDepression ScreeningBethesda North Hospital SystemStart: 49-57-0079Zbzwcuv ScreeningTobacco ScreeningBethesda North Hospital SystemStart: 03-81-4641Fatto BMI ScreeningAdult BMI ScreeningSt. Mary's [facility] Campusca [facility] SystemStart: 13-60-2439Ywytdaa ScreeningTobacco ScreeningSt. Mary's [facility], [facility] Campusca [facility] SystemStart: 78-95-5919Vieau BMI ScreeningAdult BMI ScreeningNovant Health Huntersville Medical Centertart: 88-81-7694Ebgdewt ScreeningTobacco ScreeningNovant Health Huntersville Medical Centertart: 03-25-2025 End: 52-32-8537Kzwdwck encounter xlinqwhvo52/03/2026 9:45 AM EST Office Visit [facility] [address] [place] [phone] Vincent Peña DO [address] [address] [facility]/Sleep MedicineStart: 32-44-7041Cqgiv BMI ScreeningAdult BMI Screening [facility] SystemStart: 85-03-9381Hinwoqe ScreeningTobacco Screening [facility] SystemStart: 16-33-5799Bpgyp BMI ScreeningAdult BMI Screening [facility] SystemStart: 22-56-5728Ikoxfzk ScreeningTobacco Screening [facility] SystemStart: 02-27-2025 End: 68-85-3861Lidfhemk Fzzobca7002/27/2025 8:00 PM EST Clinical Support [facility] [address] [place] [phone] Corine Gold MD [address] [place] [address] [facility] Sleep DisordersStart: 01-30-2025 End: 02-25-7628Kgtivnyt Nelmblq5601/30/2025 8:00 PM EST Clinical Support [facility] Sleep [facility] [address] [place] [phone] Corine Gold MD [address] [place] [address] [facility] Sleep DisordersStart: 01-02-2025 End: 95-23-5625Ziwkwls encounter wjkmtbnhy49/13/2025 11:15 AM EST Office Visit [facility] [address] [place] [phone] Corine Gold MD [address] [place] [address] [facility] MedicineStart: 12-17-2024 End: 41-29-8366Htypjkh encounter rhbyzczsy80/28/2025 9:30 AM EDT Office Visit [facility] [address] [phone] Vnicent Peña DO [address] [address] [facility] MedicineStart: 12-10-2024 End: 10-24-6861Boabgws encounter zqxihgrki29/21/2025 2:30 PM EDT Office Visit [facility] [address] [place] [address] [address] Corine Gold MD [address], [place], [place] [phone] [facility] MedicineStart: 12-10-2024 End: 98-86-4584Pzsxeqlnzeebtgp 4 or more parameters with PAP titration Polysomnography 4 or more parameters with PAP titration Sleep Center Routine JUAN DAVID (obstructive sleepapnea) Expected: 12/10/2024 (Approximate), Expires: 12/10/2025[facility] SystemComment on above:Expected: 12/10/2024 (Approximate), Expires: 12/10/2025Start: 12-10-2024 End: 70-92-1445KBS DiagnosticPSG Diagnostic Sleep Center Routine JUAN DAVID (obstructive sleep apnea) Expected: 12/10/2024 (Approximate), Expires: 12/10/2025[facility] SystemComment on above:Expected: 12/10/2024 (Approximate), Expires: 12/10/2025Start: 12-10-2024 End: 67-61-7750TPVE-CoV-2 (COVID-19) RNA [Presence] in Respiratory specimen by SAURABH with probe detectionSARS COV 2 (COVID-19) Microbiology Routine JUAN DAVID (obstructive sleep apnea) Expected: 12/10/2024 (Approximate), Expires: 03/12/2025[facility] Work Phone: Comment on above:Expected: 12/10/2024 (Approximate), Expires: 03/12/2025Start: 10-25-2024 End: 96-54-0983vpkeyyjeim34/05/2025 1:30 PM EDT [facility] [address] [place] [address] VyeptiNeurologyComment on above: VyeptiStart: 56-58-9889Ntlgqjkxp vaccinationBethesda North Hospital SystemStart: 10-15-2024 End: 38-87-6400Qefbwiz encounter /26/2025 8:10 AM EDT Office Visit [facility] [address] [place] [address] Zay Blas, [address] [place] [address] [facility] OBStart: 09-24-2024 End: 28-47-6795uqybcjezbr19/05/2025 10:00 AM EDT [facility] Neurology [address] [place] [address] Curtis Lepe PA-C [address], [place] [phone] Head ache controlNeurologyComment on above:Head ache controlStart: 09-03-2024 End: 15-34-3296Tnqkrmi encounter isdwglfwu61/15/2025 10:20 AM EDT Office Visit [facility] [address] [facility] [place] [phone] Zay Blas, [address] [place] [address] [facility]rivedNOMS [facility] OBComment on above:ArrivedStart: 08-20-2024 End: 32-44-7407Qjmsipa encounter qoziedhqm19/01/2025 9:15 AM EDT Office Visit Neurology [address] [place] [address] Patricia Franco PA-C [address] [place] [address] INFUSIONDAY 3NeurologyComment on above:INFUSION DAY 3Start: 08-20-2024 End: 25-85-9173redhiaokka94/01/2025 9:00 AM EDT [facility] [address] [place] [address] NON-DHE 3NeurologyComment on above: NON-DHE 3Start: 08-19-2024 End: 09-02-9765eugvtaliod62/30/2025 9:00 AM EDT [facility]fusion [facility] Neurology [address] [place] [address] NON-DHE 2NeurologyComment on above: NON-DHE 2Start: 08-19-2024 End: 99-83-5029Akclglw encounter dzarkvtdd14/30/2025 9:00 AM EDT Office Visit Neurology [address] [place] [address] Raiza Shields APRN.AGENCY SALES REPRESENTATIVE [address] [place] [address] Infusion dayNeurologyComment on above:Infusion dayStart: 08-02-2024 End: 54-58-9738Sbxdpvw encounter tmahdehie97/13/2025 11:00 AM EDT Office Visit Neurology [address] [place] [address] Curtis Lepe PA-C [address] [place] [address] INFUSION DAY 1 - PT ARRIVES AT 10AMNeurologyComment on above:INFUSION DAY 1 - PT ARRIVES AT 10AMStart: 08-02-2024 End: 87-63-2963pghrkznpoz05/13/2025 10:00 AM EDT [facility] [address] [place] [address] NON-DHE 1 per PSNeurologyComment on above:NON-DHE 1 per PSStart: 07-25-2024 End: 13-62-0869cifybqneje89/05/2025 1:00 PM EDT [facility] [address] [place] [address] VyeptiNeurologyComment on above: VyeptiStart: 07-01-2024 End: 63-02-8687Cyibivs encounter ziibxdnkr69/12/2025 8:30 AM EDT Office Visit [facility] [address] [facility] [place] [phone] Zay Blas, DO [address] [facility] [place] [address] Juan M RAJPUT OBComment on above:ArrivedStart: 06-10-2024 End: 80-58-0642UWB ISOLATION AND STORAGEDNA ISOLATION AND STORAGE Lab Routine Family history of genetic disorder Expected: 06/10/2024 (Approximate), Expires: 06/10/2025[facility] HospitalComment [facility]:Expected: 06/10/2024 (Approximate), Expires: 06/10/2025Start: 06-10-2024 End: 64-02-5620JQWKHQEN SPECIMEN LABEL- REQUIRED FOR INHOUSE GENETIC TESTING GENETICS SPECIMEN LABEL- REQUIRED FOR INHOUSE GENETIC TESTING Lab Routine Family history of geneticdisorder Expected: 06/10/2024 (Approximate), Expires: 06/10/2025[facility] Work Phone: comment on above:Expected: 06/10/2024 (Approximate), Expires: 06/10/2025Start: 06-06-2024 End: 40-33-9085Oeqixsxxnsnp consultation with hogykik7806/06/2024 4:30 PM EDT Telemedicine [facility] [address] [place] [address] [place] [address] Corine Gold MD [address] [place] [address] [facility] MedicineStart: 05-28-2024 End: 79-89-7250Hbcslpx encounter pygftuxpt80/08/2025 1:00 PM EDT Office Visit [facility] [address] [phone] Vincent Peña DO [address] [address] [facility]/Sleep MedicineStart: 05-14-2024 End: 98-98-7267Pfgrlqp encounter jbcmuzebv76/25/2025 9:00 AM EDT Office Visit Joie [facility] - Medical Oncology [address] [place] [phone] Svetlana Ye PA [address] [place] [address] [facility] - Medical OncologyStart: 05-03-2024 End: 92-22-6408fxjpuhdkwo77/14/2025 9:30 AM EDT [facility] Neurology [address] [place] [address] Curtis Lepe PA-C [address] [place] [address] Head aches adding something elseNeurologyComment on above:Head aches adding something elseStart: 05-02-2024 End: 16-33-4439azzlpmaavz29/13/2025 2:30 PM EDT [facility]fusion [facility] Neurology [address] [place] [address] vyepti infusionNeurologyComment on above:vyepti infusionStart: 04-30-2024 End: 98-81-1448Sjmickq encounter fqtdlufwd95/11/2025 9:00 AM EDT Office Visit Joie Antonio [facility] - Medical Oncology [address] [place] [phone] Svetlana Ye PA [address] [place] [address] [facility] Medical OncologyStart: 04-25-2024 End: 09-73-8343Viggkmc encounter mqlexftgu23/06/2025 1:00 PM EST Office Visit [facility] [address] [facility] [place] [place] [address] Corine Gold MD [address] [place] [address] [facility] MedicineStart: 04-16-2024 End: 04-64-2214Olvomkr encounter kdlfgrraa80/25/2025 8:30 AM EST Office Visit [facility] [address] [facility] [place] [address] Zay Blas, [address] [place] [address] [facility] BCP OBStart: 04-15-2024 End: 23-83-5417Qwgjuos encounter hcpqdehek54/24/2025 9:00 AM EST Office Visit [facility] Gynecology Oncology, A Department of [facility] [address] [place] [address] Svetlana Ye PA [address] [place] [address] [facility] Gynecology Oncology, A Department [facility]: 04-10-2024 End: 05-24-2913Bsgvzea encounter aewojtayi09/19/2025 11:30 AM EST [facility] [address] [place] [phone] Svetlana Ye PA [address] [facility] [place], [place] [phone] (Work) Joie Fernández [facility] - Medical OncologyStart: 04-10-2024 End: 96-89-2254Vdglshsfapje / ancillary services tyjbyvaqht59/19/2025 9:30 AM EST Ancillary Procedure [facility] [address] [facility] [place] [phone] [facility] BCP OBStart: 03-29-2024 End: 45-28-7630euefuoprka58/07/2025 1:30 PM EST Infusion Center Neurology [address] [place] [address] vyepti infusionNeurologyComment on above:vyepti infusionStart: 03-28-2024 End: 68-48-9355Bniaaeioa to same day surgery mbyvjm1703/28/2024 9:00 AM EST - 03/28/2024 12:45 PM EST Surgery [facility] Surgery [address] [place] [id number] Mundo Martinez MD [address] [place] [address] DAVINCI LYS[facility] OF ADHESIONSThe [facility] SurgeryComment on above:DAVINCI LYSIS OF ADHESIONSStart: 03-28-2024 End: 71-68-7828SNDIVUG LYSIS OF ADHESIONSDAVINCI LYSIS OF ADHESIONS OVARIAN CYST BILATERAL 03/28/2024 9:00 AM [facility] 03-28-2024 End: 44-07-1723ICJLKQO SALPINGO OOPHORECTOMYDAVINCI SALPINGO OOPHORECTOMY OVARIAN CYST BILATERAL 03/28/2024 9:00 AM [facility]: 13-53-9761Mrpypipqxs hospital visit by clnlwrbze77/06/2025 9:00 AM EST Hospital Encounter [facility] Surgery [address] [place] [phone] Mundo Martinez MD [address] [place] [address] [facility] Surgery Start: 03-25-2024 End: 52-38-0370Groibkj encounter ziqjaqqzh29/03/2025 2:15 PM EST [facility] On [address] [address]GvsMfezuv [facility] On [facility] Start: 03-22-2024 End: 97-51-7229oaematqtfu46/31/2025 1:30 PM [facility] Infusion Center Neurology [address] [place] [address] vyepti infusionNeurologyComment on above:vyepti infusionStart: 03-20-2024 End: 24-81-7119GL Chest WO contrastCT chest without contrast Imaging Routine Moderate asthma with acute exacerbation, unspecified whether persistent Expected: 03/20/2024, Expires: 03/20/2025[facility] Work Phone: Comment on above:Expected: 03/20/2024, Expires: 03/20/2025Start: 02-28-2024 End: 35-77-6135SRB tumor markerAFP tumor marker Lab Routine Complex ovarian cyst Expected: 02/28/2024 (Approximate), Expires: 02/27/2025[facility] HealthcareComment on above:Expected: 02/28/2024 (Approximate), Expires: 02/27/2025Start: 02-28-2024 End: 98-46-4646IQ 125CA 125 Lab Routine Complex ovarian cyst Expected: 02/28/2024 (Approximate), Expires: 02/27/2025[facility] HealthcareComment on above: Expected: 02/28/2024 (Approximate), Expires: 02/27/2025Start: 02-28-2024 End: 78-26-8083Qvihkqzkoqonqqum Ag [Mass/volume] in Serum or PlasmaCEA Lab Routine Complex ovarian cyst Expected: 02/28/2024 (Approximate), Expires: 02/27/2025[facility] HealthcareComment on above:Expected: 02/28/2024 (Approximate), Expires: 02/27/2025Start: 02-28-2024 End: 98-59-7259NYM, tumor markerHCG, tumor marker Lab Routine Complex ovarian cyst Expected: 02/28/2024 (Approximate), Expires: 02/27/2025[facility] Comment on above:Expected: 02/28/2024 (Approximate), Expires: 02/27/2025Start: 02-28-2024 End: 82-75-3240Ikhnlge dehydrogenase, isoenzymesLactate dehydrogenase, isoenzymes Lab Routine Complex ovarian cyst Expected: 02/28/2024 (Approximate), Expires: 02/27/2025[facility] Work Phone: comment on above:Expected: 02/28/2024 (Approximate), Expires: 02/27/2025Start: 02-28-2024 End: 88-91-5051DA PelvisUS Pelvis w/ TV Imaging Routine Pelvic pain in female Complex ovarian cyst Expected: 02/28/2024, Expires: 02/27/2025[facility] Comment on above:Expected: 02/28/2024, Expires: 02/27/2025Start: 02-28-2024 End: 68-23-4602Ktrebgm encounter igvzbwvkf98/08/2025 11:10 AM EST Office Visit [facility] [address] [place] [phone] Zay Blas DO [address] [place] [address] N[facility]S BCP OBStart: 02-22-2024 End: 55-39-0996Pmtwwrt encounter zaqtlkrao74/02/2025 11:15 AM EST Office Visit [facility] [address] [place] [address] Lamont Blair MD [address] [place] [address] [facility] FMStart: 02-09-2024 End: 37-59-2842HQ Abdomen and Pelvis WO and W contrast IVCT abdomen pelvis w and wo IV contrast Imaging Routine Generalized abdominal pain Intractable nausea and vomiting Expected: 02/09/2024, Expires: 02/08/2025[facility] [employer] Work Phone: Comment on above:Expected: 02/09/2024, Expires: 02/08/2025Start: 02-05-2024 End: 03-71-6154psihazahvh92/16/2024 1:45 PM EST [facility] Neurology [facility] [address] [facility] [place] [address] Sagar Barth APRN.AGENCY SALES REPRESENTATIVE [address] [facility], [id number] MingrainsNeurology Headache [facility] Hospitalomment on above:MingrainsStart: 01-24-2024 End: 08-40-9436Kgdfxma encounter emurmytiu59/04/2024 3:20 PM EST Office Visit [facility] [address] [place] [address] Zay Blas, DO [address] [place] [address] NOMS BCP OBStart: 01-23-2024 End: 56-56-0582Wirgw metabolic 1998 panel - Serum or PlasmaBasic metabolic panel Lab Routine Generalized edema Expected: 01/23/2024 (Approximate), Expires: 04/2024[facility] HealthcareComment on above:Expected: 01/23/2024 (Approximate), Expires: 01/22/2025Start: 01-23-2024 End: 71-39-0908KYF W Auto Differential panel - BloodCBC and differential Lab Routine Generalized edema SOB (shortness of breath) on exertion Expected: 1 03/25/2023 (Approximate), Expires: 01/22/2025[facility] HealthcareComment on above: Expected: 01/23/2024 (Approximate), Expires: 01/22/2025Start: 01-23-2024 End: 91-38-4106Wtzredj function 2000 panel - Serum or PlasmaHepatic function panel Lab Routine Generalized edema SOB (shortness of breath) on exertion Expected: 01/23/2024 (Approximate), Expires: 01/22/2025[facility] HealthcareComment on above:Expected: 01/23/2024 (Approximate), Expires: 01/22/2025Start: 01-23-2024 End: 04-74-5118Dbpvfkofyos peptide B [Mass/volume] in BloodB-type natriuretic peptide Lab Routine Generalized edema Expected: 01/23/2024 (Approximate), Expires: 01/22/2025[facility] HealthcareComment on above:Expected: 01/23/2024 (Approximate), Expires: 01/22/2025Start: 01-23-2024 End: 46-50-6524WG Chest 2 ViewsXR chest 2 views Imaging Routine Mild persistent asthma with (acute) exacerbation (CMS/HCC) Generalized edema SOB (shortness of breath) on exertion Expected: 01/23/2024, Expires: 01/22/2025[facility] Work Phone: Comment on above:Expected: 01/23/2024, Expires: 01/22/2025Start: 01-23-2024 End: 17-51-9630Ahgufpm encounter procedureNOMS CWM FMComment on above:Arrived Start: 01-22-2024 End: 09-02-9014Uopffqa encounter whxxtkmie82/02/2024 2:30 PM EST Office Visit Neurology [address] [place] [address] Raiza Shields, COUNTER CHECKER.AGENCY SALES REPRESENTATIVE [address] [place] [address] Infusion Day #3NeurologyComment on above:Infusion Day #3Start: 01-22-2024 End: 78-91-0049nphahknkcc82/02/2024 2:00 PM EST Infusion Center Neurology [address] [place] [address] Non-DHE Infusion Day #3Neurology Comment on above:Non-DHE Infusion Day #3Start: 01-19-2024 End: 94-32-2782osxxknmfhs65/29/2024 9:30 AM EST Infusion Center Neurology [address] [place] [address] Non-DHE Infusion Day #2Neurology Comment on above:Non-DHE Infusion Day #2Start: 01-09-2024 End: 37-10-5711Ilteivo encounter procedureNOMS CWM FMComment on above:Arrived Start: 01-05-2024 End: 61-33-4521dqxqbcfnzn61/15/2024 1:00 PM EST Infusion Center Neurology [address] [place] [address] VyeptiNeurologyComment on above: VyeptiStart: 12-12-2023 End: 03-89-1888Dpbdgvo encounter dpzdmdyoy15/22/2024 3:45 PM EDT Office Visit [facility] FM [address] [place] [address] Lamont Blair MD [address] [place] [address] NOMS CWM FMStart: 12-11-2023 End: 75-44-9795Rszqfbj encounter ejpxjhcha82/21/2024 1:00 PM EDT Office Visit [facility] [address] [facility] [place] [address] aZy Blas, [address] [place] [address] [place], [place] [id number] ArrivedNOMS BCP OBComment on above:ArrivedStart: 11-15-2023 End: 47-36-6827Bssqjuz encounter jhaivjozu17/25/2024 8:45 AM EDT Office Visit [facility] [address] [place] [address] Lamont Blair MD [address] [place] [address] ArrivedNOMS CWM FMComment on above:ArrivedStart: 11-06-2023 End: 75-77-3661Urqmfmv encounter sfwefyjbv64/16/2024 11:30 AM EDT Office Visit [facility] [address] [facility] [address] [place] [address] Jose Martin Lopez MD [address] [facility] [address] [place] [phone] NOMS SWS NEURStart: 10-31-2023 End: 16-33-6036Emnfrmm encounter qoepnpiwl11/10/2024 2:30 PM EDT Office Visit Neurology [address] [place] [address] Tyrone Dolan MD, PhD [address] [facility] [address] [place] [address] SeizureNeurologyComment on above:SeizureStart: 97-03-6169Xywtx-19 Vaccine ( season)Covid-19 Vaccine ()[facility]: 81-47-2557Nlwaq-19 Vaccine ()Covid-19 Vaccine ()[facility]: 31-92-2215Ryqtdvowy vaccinationCleveland Clinic [facility] Start: 10-13-2023 End: 30-36-4063vogebxizck98/23/2024 1:00 PM EDT Infusion Center Neurology [address] [place] [phone] Vyepti InfusionNeurologyComment on above:Vyepti InfusionStart: 10-10-2023 End: 41-62-0351Uvfmstg encounter dfodcywki83/20/2024 9:15 AM EDT Office Visit [facility] [address] [place] [address] Lamont Blair MD [address] [address] ArrivedNOMS CWM FMComment on above:ArrivedStart: 09-19-2023 End: 90-09-0256Ndoenqo encounter ongpwgstc13/30/2024 2:30 PM EDT Office Visit Neurology Headache [facility] [address] [place] [address] Sagar Barth APRN.AGENCY SALES REPRESENTATIVE [address] [place] [address] Migraines Nerve BlockNeurology Headache [place] FHCComment on above:Migraines Nerve BlockStart: 08-18-2023 End: 20-61-1258Fsppucu encounter pdhcsuunt15/28/2024 9:30 AM EDT Office Visit Neurology [address] [facility] [place] [address] Curtis Lepe PA-C [address] [place] [address] NERVEBLOCKNeurologyComment on above:NERVE BLOCKStart: 85-42-6621Hwpuerriwy ScreeningDepression ScreeningCrystal Clinic Orthopedic Center Health SystemStart: 39-02-7295Kdagaqphhh AssessmentDepression AssessmentUniversity Hospitals Geneva Medical Centertart: 11-07-9072Ccdae depression screening assessmentDEPRESSION SCREENINGUniversity Hospitals Geneva Medical Centertart: 50-20-8952Rnomf- 19 Vaccine ()Covid-19 Vaccine ()[facility]: 13-21-6905Tmkdnsizn vaccinationUniversity Hospitals Geneva Medical Centertart: 02-20-2022 DEPRESSION ASSESSMENTDEPRESSION ASSESSMENTCleKettering Health Hamiltontart: 10-26-2021 End: 08-60-1559WHUB-CoV-2 (COVID-19) RNA [Presence] in Respiratory specimen by SAURABH with probe detectionPRE-PROCEDURE & PRE-OPERATIVE COVID Microbiology Routine Seizure-like activity (HCC) Expected: 10/26/2021, Expires: 10/26/2022[facility] Work Phone: Comment on above:Expected: 10/26/2021, Expires: 10/26/2022Start: 40-59-6145Ycsdwidke vaccinationBON CINCINNATI SHRINERS HOSPITALStart: 63-89-0613TJDGSPOPMS ASSESSMENTDEPRESSION ASSESSMENTUniversity Hospitals Geneva Medical Centertart: 38-72-5447Xtxjszmrw vaccinationFlu vaccine (#1)[facility] Work Phone: start: 55-80-7904NDR TESTINGPAP TESTINGUniversity Hospitals Geneva Medical Centertart: 18-94-7082Fisojokze for malignant neoplasm of cervixBON CINCINNATI SHRINERS HOSPITALStart: 51-98-7613Nvxofrejm B Vaccine (1 of 3 - 19+ 3-dose series) Hepatitis B Vaccine (1 of 3 - 19+ 3-dose series)[facility] Start: 29-97-1108Kcpwb microalbumin profileUniversity Hospitals Geneva Medical Centertart: 11-13-2013 Adult BMI Follow Up PlanAdult BMI Follow Up [facility]tart: 88-33-0891Emfnlhd ScreeningAnxiety ScreeningUniversity Hospitals Geneva Medical Centertart: 11-13-2013 Depression ScreeningDepression ScreeningUniversity Hospitals Geneva Medical Centertart: 11-13-2013 Hepatitis C screeningBON CINCINNATI SHRINERS HOSPITALStart: 69-73-4428XWVZQSEFC C SCREENINGHEPATITIS C SCREENINGUniversity Hospitals Geneva Medical Centertart: 51-36-6350EMY SCREENINGHIV SCREENINGUniversity Hospitals Geneva Medical Centertart: 12-32-7563XVW screeningHIV ScreeningUniversity Hospitals Geneva Medical Centertart: 87-07-1395Ftbytnrtj for Chlamydia trachomatisChlamydia screenLifePoint Health: 46-36-2838UMD screeningHIV screenUVA Health University Hospitalart: 84-64-0031BLVW TO ADULT TRANSITION ANNUAL ASSESSMENTPEDS TO ADULT TRANSITION ANNUAL ASSESSMENTUniversity Hospitals Geneva Medical Centertart: 50-76-3514Rnmxddgoz Vaccine (1 of 2 - 13+ 2-dose series)Varicella Vaccine (1 of 2 - 13+ 2-dose series) [facility]: 49-16-6087Hycpf depression screening assessmentDEPRESSION SCREENINGUniversity Hospitals [facility] Medical Centertart: 43-54-5078CEQZM-19 Vaccine (1)COVID-19 Vaccine (1)[facility] Work Phone: start: 97-31-8745Jnvxtmpwdo ScreenDepression ScreenLifePoint Health: 07-21-6271JYNS TO ADULT TRANSITION INITIAL DISCUSSIONPEDS TO ADULT TRANSITION INITIAL DISCUSSIONUniversity Hospitals Geneva Medical Centertart: 88-43-3718GCH VACCINE (1 - 2-dose series)HPV VACCINE (1 - 2-dose series) [facility]: 56-79-5961FIZ VACCINE (1 - 2-dose series)HPV VACCINE (1 - 2-dose series)[facility]art: 37-38-3719TCaJ/Tdap/Td Vaccine (1 - Tdap) DTaP/Tdap/Td Vaccine (1 - Tdap)[facility] Hospital[facility]: 11-13-1996 MMR Vaccine (1 of 1 - Standard series)MMR Vaccine (1 of 1 - Standard series) [facility]: 71-20-7088EYONN-19 Vaccine (#1)COVID-19 Vaccine (#1)[facility] CENTERReocar [facility]OS[facility]ITALStart: 27-28-7520BYSJYULNR B (1 of 3 - 3- dose series)HEPATITIS B (1 of 3 - 3-dose series)[facility]: 59-58-2219Ghvtebxdf B Vaccine (1 of 3 - 3-dose series)Hepatitis B Vaccine (1 of 3 - 3-dose series)[facility] Cent[facility]art: 15-44-2393Zuigezjzm C screening Hepatitis C [facility] [employer] Work Phone: End: 63-32-9018Fbuoj-1-Antitrypsin TsfqhmdsdCifxv-5-Digvtnuihhb Phenotype Lab Routine Moderate asthma with acute exacerbation, unspecified whether persistent 1 Occurrences starting 03/20/2024 until 03/20/2025[facility] HospitalPinch MediaComment on above:1 Occurrences starting 03/20/2024 until 1611Jvyiv-3-Kuwlnbgciqc AkglnjngqBsukx-3-Oamtxmisuod Phenotype Lab Routine Moderate asthma with acute exacerbation, unspecified whether persistent 03/20/2024 1:12 PM VatorBacteria identified in Blood by Aerobe cultureGov-Sav[employer] Work Phone: Bacteria identified in Urine by CultureURINE CULTURE, ROUTINE Lab Routine 01/31/2024 11:57 AM [facility] HospitalBacteria identified in Wound by Aerobe cultureWound culture superficial includes gram stain Microbiology Routine 04/08/2024 8:25 PM [employer] Phone: End: 46-99-6829Brhbw Metabolic Panel w/ Reflex to MGBasic Metabolic Panel w/ Reflex to MG Lab Routine Daily for 7 Days starting 10/20/2021 until 10/26/2021 [facility] [employer] Phone: comment on above:Daily for 7 Days starting 10/20/2021 until 10/26/2021 End: 67-81-5044FBV W Auto Differential panel - BloodCBC with Auto Differential Lab Routine Daily for 7 Days starting 10/20/2021 until 10/26/2021, 1 completed [employer] Work Phone: comment on above:Daily for 7 Days starting 10/20/2021 until 10/26/2021, 1 completed End: 35-05-9543HGB W Auto Differential panel - BloodCBC with auto diff Lab Routine Postoperative infection, unspecified type, subsequent encounter 1 Occ urrences starting 05/02/2024 until 05/02/2025[facility] Work Phone: Comment on above:1 Occurrences starting 05/02/2024 until 05/02/2025HLAMYDIA TRACHOMATIS (GENITO/STI)CHLAMYDIA TRACHOMATIS (GENITO/STI) Lab Routine Yeast infection Ordered: 07/01/2024[employer] Comment on above:Ordered: 07/01/2024 End: 33-66-9250Ulufruwwttycy metabolic 2000 panel - Serum or PlasmaComprehensive metabolic panel Lab Routine Postoperative infection, unspecified type, subsequent encounter 1 Occurrences starting 05/02/2024 until 05/02/2025[facility] HospitalVigilent SystemComment on above:1 Occurrences starting 05/02/2024 until 05/02/2025ytology Cervical or vaginal smear or scraping studyPap Smear Pathology and Cytology Routine Well woman exam with routine gynecological exam Ordered: 04/16/2024[employer] Work Phone: comment on above:Ordered: 04/16/2024 End: 88-78-4417GCH 12 leadECG 12 lead ECG Routine Bilateral ovarian cysts Preop testing 1 Occurrences starting 03/19/2024 until 03/19/2025[employer] Work Phone: Comment on above:1 Occurrences starting 03/19/2024 until 03/19/2025EKG 12 LeadEKG 12 Lead ECG Routine 10/19/2021 5:55 PM EDTBON [employer] Work Phone: End: 87-72-1812GRKT AMBULATORY EEGEPIL AMBULATORY EEG NEUROLOGY Routine Psychogenic nonepileptic seizure Spells of trembling 1 Occurrences starting 10/29/2021 until 10/29/2022[facility] Work Phone: Comment on above:1 Occurrences starting 10/29/2021 until 10/29/2022 End: 18-92-9693VGCV EEG LEAD PLACEMENTEPIL EEG LEAD PLACEMENT NEUROLOGY Routine Seizure-like activity (HCC) 1 Occurrences starting 10/26/2021 until 10/26/2022 [facility] Work Phone: Comment on above:1 Occurrences starting 10/26/2021 until 10/26/2022 End: 06-87-4098YRHP EEG ROUTINEEPIL EEG ROUTINE NEUROLOGY Routine Seizure-like activity (HCC) 1 Occurrences starting 11/08/2021 until 11/08/2022[facility] Work Phone: Comment on above:1 Occurrences starting 11/08/2021 until 11/08/2022EPIL VEEG ADMIT TO EMU/PMUEPIL VEEG ADMIT TO EMU/PMU NEUROLOGY Routine Seizure-like activity (HCC) Ordered: [facility] Work Phone: Comment on above:Ordered: 10/26/2021Neisseria gonorrhoeae DNA [Presence] in Unspecified specimen by SAURABH with probe detection Neisseria gonorrhea DNA probe, direct Lab Routine Yeast infection Ordered: 07/01/2024[facility] [employer] SoftwareComment on above:Ordered: 07/01/2024Oxygen therapy [Minimum Data Set]Initiate Oxygen Therapy Protocol Respiratory Care Routine As Needed until discontinued starting 10/19/2021[facility] Work Phone: comment on above:As Needed until discontinued starting 2SURESWAB(R) ADVANCED VAGINITIS PLUS, TMASURESWAB(R) ADVANCED VAGINITIS PLUS, TMA Pathology and Cytology Routine Yeast infection Ordered: 07/01/2024[facility] [employer] Work Phone: comment on above:Ordered: 07/01/2024 End: 41-18-0276Kmfa and screen(includes indirect ady)Type and screen(includes indirect ady) Blood Bank Routine Bilateral ovarian cysts Preop testing 1 Occurrences starting 03/19/2024 until 03/19/2025[facility] HospitalComment on above:1 Occurrences starting 03/19/2024 until 03/19/2025[facility] Immunizations Immunization DateImmunizationNotesCare HdgnatktMsuttlsk36-84-7952Wcdtvksva, injectable, Madin Shivani Canine Kidney, preservative free, quadrivalentMundo Martinez MD Work Phone: [facility] HospitalKieler67-48-4515ueeokbbti virus vaccine, unspecified formulationJeeverette Ivey APRN.CNP Work Phone: [facility] HospitalSqvpvc79-96-1298yqteoxfia, seasonal, injectable, preservative Brandon Martinez MD Work Phone: [facility] HospitalZmutuv50-92-1266swuvggbix virus vaccine, unspecified formulationCoabdoul Walton MS, [facility] Work Phone: [facility]08-01-2016tetanus toxoid, reduced diphtheria toxoid, and acellular pertussis vaccine, adsorbed Mundo Martinez MD Work Phone: [facility] HospitalZnlaga53-14-2141dttlmcjlz, seasonal, injectable, preservative Brandon Martinez MD Work Phone: [facility] HospitalYuzocx67-23-1966jliacintf, seasonal, injectable, preservative Brandon Martinez MD Work Phone: [facility]04-02-2013human papilloma virus vaccineAshley MD Work Phone: [facility]11-30-2012human papilloma virus Ashley smiley MD Work Phone: [facility]09-25-2012human papilloma virus vaccine, quadrivalentMundo Martinez MD Work Phone: [facility] HospitalNgqvwt70-77-9980opbztxjqa, seasonal, injectable, preservative freeMundo Martinez MD Work Phone: [facility] HospitalOktnso63-44-8052kamkwgxfxkfhv polysaccharide (groups A, C, Y and W-135) diphtheria toxoid conjugate vaccine (MCV4P)Mundo Martinez MD Work Phone: [facility] HospitalSsevjx42-02-6953dxiyhjofw virus vaccineMundo Martinez MD Work Phone: [facility] HospitalRefspx83-48-5476zfhmveswd B vaccine, pediatric or pediatric/adolescent dosageMundo Martinez MD Work Phone: [facility] HospitalIznevc88-10-4373ktglevyfc virus vaccineMundo Martinez MD Work Phone: [facility] HospitalLourxg24-50-2896ylxvgljebw, tetanus toxoids and acellular pertussis vaccineMundo Martinez MD Work Phone: [facility]07-19-2002measles, mumps and rubella virus vaccineMundo Martinez MD Work Phone: [facility] HospitalFgetjo15-79-5798itcmymrqjp vaccine, inactivatedMundo Martinez MD Work Phone: [facility] HospitalUtpvci16-27-7782pnllbrlobb, tetanus toxoids and acellular pertussis vaccine, Haemophilus influenzae type b conjugate , and poliovirus vaccine, inactivated (ULxJ-Yfv-CKY)Mundo Martinez MD Work Phone: [facility]01-14-1998measles, mumps and rubella virus vaccineMundo Martinez MD Work Phone: [facility] HospitalBcnqrc58-03-3286oqnbvuvtmq, tetanus toxoids and acellular pertussis vaccine, Haemophilus influenzae type b conjugate , and poliovirus vaccine, inactivated (PUeW-Gwv-OFW)Mundo Martinez MD Work Phone: [facility] HospitalOqkkcg31-83-9834ythuykljnb, tetanus toxoids and acellular pertussis vaccine, Haemophilus influenzae type b conjugate , and poliovirus vaccine, inactivated (IMfB-Ppm-XXP)Mundo Martinez MD Work Phone: [facility] HospitalTxwgcs74-76-4213wyawmsoug B vaccine, pediatric or pediatric/adolescent Esperanza Martinez MD Work Phone: [facility] HospitalMlqtzk07-74-4776mfxxjsrawr, tetanus toxoids and acellular pertussis vaccine, Haemophilus influenzae type b conjugate , and poliovirus vaccine, inactivated (SOlI-Xmk-XEJ)Mundo Martinez MD Work Phone: [facility] HospitalIvlrcx34-65-9874edrkrkaps B vaccine, pediatric or pediatric/adolescent Esperanza Martinez MD Work Phone: [facility] HospitalVigifu80-64-2933anpjuwbez B vaccine, pediatric or pediatric/adolescent Esperanza Martinez MD Work Phone: [facility] Payers DatePayer CategoryPayerPolicy [id number] (Managed Care)[employer] Member Subscriber Plan / Payer (Effective 2022-Present) Name: Margaret Nicholson Relation to Subscriber: Self Name: Margaret Nicholson Payer ID: Not on file Group ID: Not on file Type: Not on file Address: [address] [id number]-akx 2017[place]icaid[place] MED[place] [id number] 2017- Present [id number] Medicaid [place] MED[place] [id number] 2014Medicaid [id number] [id number] 2..1.740683.3.57[id number] 2..1.856763.3.57[id number] 2..1.916774.3.57[id number] 2..1.191467.3.57[id number] 2..1.984167.3.57[id number] 2.160.1.649565.3.57[id number] 2..1.240223.3.57[id number] 2.160.1.725904.3.57[id number] 2.16.840.1.714688.3.57[id number] 2.16.840.1.251439.3.57[id number] 2.16.840.1.361080.3.57[id number] 2.16.840.1.804908.3.57[id number] 2.16.840.1.630684.3.57[id number] 2.16.840.1.027200.3.57[id number] 2.16840.1.073272.3.57[id number] 2.16840.1.084509.3.57[id number] 2.16.840.1.709038.3.57[id number] 2.16.840.1.928629.3.57[id number] 2.16840.1.945277.3.57[id number] 2.16.840.1.667749.3.579.2.65705-07-9768Ditcpkc8375106 2.16.840.1.968098.3.579.2.17457-82-4091Profalk1838207 2.16.840.1.444601.3.579.2.49467-11-9293Pftredj1517239 2.16840.1.534046.3.579.2.47755-15-6926Pvriswh9997226 2.16.840.1.472997.3.579.2.55584-44-2423Fmqnize2485960 2.16840.1.285576.3.579.[id number] 2.16840.1.813125.3.579.2.[id number] 2.840.1.243196.3.579.2.[id number] 2.0.1.016598.3.579.[id number] 2.840.1.354903.3.579.2.[id number] 2.0.1.411928.3.579.2.968378-40-1457Prjfhyg9586301 2.0.1.046493.3.579.2.915762-75-3605Xcrmqyo8938261 2.0.1.994022.3.579.2.262267-62-6628Fbmwtql1079802 2.840.1.701640.3.579.2.[id number] 2..1.542411.3.579.2.[id number] 2.840.1.288337.3.579.2.066742-98-0770Yorwjma3601073 2.840.1.284940.3.579.2.798160-31-8840Vjqybsc3333729 2.16840.1.889085.3.579.2.63[id number] 2.840.1.705934.3.579.2.027102-56-7293Mdlxyjp504217551215 1.2.840.346604.1.13.239.2.7.3.275974.916Nbukdij99080024 2.16.840.1.064791.3.579.2.531 Social History DateTypeDetailFacilityTobacco smoking status NHISUnknown if ever smokedUniversity Hospitals Geneva Medical Centertart: 72-28-4806Wqp Assigned At BirthNot on fileUniversity Hospitals Geneva Medical Centertart: 12-24-2020 End: 01-25-4756Atkfedn smoking status NHISNever smokerHenry County HospitalDealdrive Phone: start: 12-24-2020 End: 38-03-0696Vzrnwmw use and exposureNever usedAshtabula General HospitalStart: 12-24-2020 End: 06-15-2994Jarzupg intakeEx-drinker (finding)Bike HUD Phone: start: 10-16-2021 End: 49-68-2087Msfzquem to SARS-CoV-2 (event)Not sureLakeHealth TriPoint Medical CenterJamclouds smoking status NHISTobacco smoking consumption unknownC[facility] Quotations Book Phone: Start: 03-03-2020 End: 73-50-6710Fmpltgb of Social functionUniversity Hospitals Geneva Medical Centertart: 03-03-2020 End: 30-76-5792Ensyqow Health Questionnaire 2 item (PHQ-2) [Reported][facility] Centertart: 42-93-9494Jkpqv Depression Screening [facility] Start: 11-15-2023 End: 10-01-8250Ietcrilkj beverage intakeLifetime non-drinker (finding)[facility] HealthcareStart: 19-26-3428Gqzgssn CommentCaffeine intake: >4 cups per dayNOMS HealthcareDo you belong to any clubs or organizations such as denominational groups, unions, fraternal or athletic groups, or [...] the mortgage or rent on time?NoNOMS HealthcareStart: 31-09-9194XmjBdjaiq (finding)[facility] Hospitaledic Health SystemHow often to you have a drink containing alcohol?Monthly or lessProLancaster Municipal Hospitalca Health SystemHow many standard drinks containing alcohol do you have on a typical day?1 or 2PMemorial Health System SystemStart: 79-98-3198Tfdxdcp Commentsocial [facility] SystemNEGATED: Highlighted rowStart: NINFHistory of tobacco use Passive smokerNOMS Healthcare Goals DatePatient GoalDesired Activity/StatePersonal health goalComment on above: Evaluation of progress towards goal: Patient stated goal is to return home with HCC for assistance with wound care Functional Status DsigTjedaoxvzrXjbtlbFmgredgw20-85-7040Nbz you deaf, or do you have serious difficulty hearingNo 04/01/2022 6:20 PM Katie Florez RN NoCacmc healthcare systempeggy Dkiryl17-69-7897Lqk you blind, or do you have serious difficulty seeing, even when wearing glassesNo 04/01/2022 6:20 PM Katie Florez RN NoCleveland Yimanh92-38-6818Iw you have serious difficulty walking or climbing stairsNo 04/01/2022 6:20 PM Katie Florez RN NoCacmc healthcare systempeggy Mqfpxt53-49-5314Qh you have difficulty dressing or bathingNo 04/01/2022 6:20 PM Katie Florez RN NoCacmc healthcare systempeggy Xgjluf10-88-9050Lpwrevt of a physical, mental, or emotional condition, do you have difficulty doing errands alone such as visiting a physician's office or shoppingNo 04/01/2022 6:20 PM Katie Florez RN No [facility] Mental Status KfvwWedepdouauTrejdoYqnpocrs30-76-0992Ecutwrz of a physical, mental, or emotional condition, do you have serious difficulty concentrating, remembering, or making decisionsNo 04/01/2022 6:20 PM Katie Florez, PRATIBHA [facility] Clinical Notes 12-24-2020 to 12-20-2024 Note Date & EigoNnayLmiaxmaj23-47-0752 History of Present illness Narrative* Saba Fieldsaji, COUNTER CHECKER-AGENCY SALES REPRESENTATIVE - 12/20/2024 10:00 AM EDT Subjective Patient [...] 03/25/2024 Prolonged emergence from general anesthesia Seizure ([facility]) Last one 03-11-2024 Past Surgical History Past Surgical History: Procedure Laterality Date APPENDECTOMY SECTION CHOLECYSTECTOMY [facility] DV5 LYSIS OF ADHESIONS N/A 03/28/2024 Performed by Mundo Martinez MD at [facility] DV5 LYSIS OF ADHESIONS N/A 03/28/2024 Performed by Jesse Sultana MD at [facility] DV5 SALPINGO OOPHORECTOMY/FROZEN SECTION [...] Physical Activity: Insufficiently Active (01/23/2024) Received from [facility] Exercise Vital Sign On average, how many days per week do you engage in moderate to strenuous exercise (like a brisk walk)?: 7 days On average, how many minutes do you engage in exercise at this level?: 10 min Stress: Stress Concern Present (01/23/2024) Received from [facility] [place] of Occupational Health - Occupational Stress Questionnaire Feeling of Stress : Rather much Social Connections: Socially Integrated (01/23/2024) Received from [facility] Social Connection and Isolation Panel In a typical week, how many times do you talk on the phone with family, friends, or neighbors?: More than three times a week How often do you get together with friends or relatives?: Twice a week How often do you attend denominational or roman catholic services?: More than 4 times per year Do you belong to any clubs or organizations such as denominational groups, unions, fraternal or athletic groups, or [...] TWO PUFFS BY MOUTH EVERY 4 HOURS YSHCDF47 g 0 baclofen (LIORESAL) 10 mg tablet [...] NOSTRIL EVERY OTHER DAY 16 g 2 sgupghimrom-fmxpepmol-caabywva (TRELEGY ELLIPTA) 200-62.5-25 mcg blister with device [...] SARAHI Karimi 12/20/24 1320 documented in this encounterSt. Mary's Medical Center, Ironton CampusClaimSync Ayxtie24-36-9283 History of Present illness Narrative* Vincent Peña [...] Dupixent today Follow-up in 3 months at [facility] OSMANI Hooper presents for follow-up of [...] has been getting regular fills from [facility]. She does also note that her youngest [...] process is seen. Dr. Vincent Peña DO. [facility] Physicians Pulmonary & Critical Care Office: [phone] documented in this encounterSt. Mary's Medical Center, Iront[facility] CampusClaimSync Vdqtct46-99-6438 NoteHNO ID: [id number] Author: CURTIS LEPE PA-C Service: ? Author Type: Physician Office Support Clerk Type: Progress Notes Filed: 12/13/2024 10:49 Note [...] ZOLMitriptan (ZOMIG) 5 mg nasal sprayUse 1 [place] in the nose as needed at onset [...] and clear, coherent, and relevant. Short and fci memory, cognition and general fund of knowledge are good. Attention span and concentration are excellent. Cranial Nerves: VII-face is symmetric witho (more content not included)... [facility]10-24-2025 NoteHNO ID: [id number] Author: CORETTA QUINTANILLA RN Service: ? Author Type: Registered Nurse Type: Progress Notes Filed: 12/13/2024 10:37 Note Text: 0832: Patient in for day 2 of IV infusions. Patient rated headache 8/10. Patient stated severe nausea and severe dizziness. Patient educated on medications to be administered. Patient verbalized understanding and agreed to proceed with infusions. 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 She would like PRN zofran for nausea and PRN benadryl for sedation. 1036: Pts infusions complete. Pt tolerated infusion well. Pt rated headache 4/10. Pt stated severe nausea and moderate dizziness. Pt preferred second line PRN phenergan for nausea over zofran. Phenergan administered. Pt discharged from treatment room via wheelchair to her in the lobby.[facility]10-23-2025 Miscellaneous Notes* Telephone Encounter - Vielka Hussein - 12/12/2024 10:57 AM EDT 12/10 Order received 12/12 Called PT LM to schedule sleep study. Comp Order and 12/10/24 M. [facility] Epic Notes documented in this encounterMercy Health Anderson Hospital10-23-2025 Telephone encounter Note* Telephone Encounter - Vielka Hussein - 12/12/2024 10:57 AM EDT 12/10 Order received 12/12 Called PT LM to schedule sleep study. Comp Order and 12/10/24 M. Epic Notes [facility] HospitalPrognosis [facility] Information Systems Oouaqd34-82-3394 NoteHNO ID: [id number] Author: LENNIE PALACIOS, PRATIBHA Service: ? Author [...] given. Patient with moderate dizziness, transferred to [facility] for discharge in wheelchair.[facility]10-23-2025 NoteHNO ID: [id number] Author: BASIL CORNELIUS, Service: ? Author Type: Physician Type: Progress Notes Filed: 12/12/2024 09:58 Note Text: [facility] [place] [address] [place] [address] Headache Center - Follow up Visit Accompanied [...] this. Current treatment: Preventative: Vyepti 300 mg v7lnfgah Abortive: Zavzpret 10 mg IN prn Zomig IN prn Phenergan Last office visit 09/24/2024: Headache 1 Location: holcephalic Quality/Description: throbbing and pressure Associated Symptoms: Photophobia: yes Phonophobia: yes Nausea: yes Vomiting: yes Other symptoms: osmophobia and vertigo Worse with activity: yes Number of migraine headache days/month (more content not included)...[facility]10-22-2025 NoteHNO ID: [id number] Author: LENNIE PALACIOS RN Service: ? Author [...] sleepy and discharged in a wheelchair to ,(driver/sales workers). Toradol given after Vyepti flush . Headache unchanged still /. Patient scheduled with Dr. Cornelius tomorrow morning.[facility]10-22-2025 NoteHNO ID: [id number] Author: STANLEY LAZO APRN.AGENCY SALES REPRESENTATIVE Service: ? Author Type: Nurse Practitioner Type: Progress Notes Filed: 12/11/2024 10:46 Note Text: Pt has severe migraines. She is requesting toradol IV while she has Vyepti infusions. She has not had any NSAIDs in the last 4 days, kidney function is normal. Will give 30 mg IV toradol today.[facility]10-21-2025 History of Present illness Narrative* Corine Gold MD - 12/10/2024 2:30 PM EDT Images from the original note were not included. [address] [place] [id number] Patient: April Nicholson Date of : [...] PAP titration; Future - Ambulatory referral to [facility] Sleep Medicine; Future JUAN DAVID screen positive Needs Sleep study Ordered today Follows psychiatry Is on hormone replacement after total hysterectomy Exercise counseling completed. Follow-up in 3 months CORINE GOLD MD Family Medicine Physician [facility] Medicine / [facility] 12/10/24 This note was completed with voice recognition software. The document was reviewed for errors however some may still be present. Please do not hesitate to contact/Epic msg the author to verify any questions/concerns. documented in this encounterMercy Health Anderson Hospital10-07-2025 NoteHNO ID: [id number] Author: RAIZA SHIELDS APRN.CNP Service: ? Author Type: Nurse Practitioner Type: Progress Notes Filed: 11/26/2024 13:56 Note Text: Patient was incorrectly scheduled; Was told to establish care with MD, I will have scheduling team reach out and assist patient in getting set up with Physician. Appointment cancelled, no charge. Raiza Shields APRN.CNPK[facility]tering Health [facility]09-04-2025 History of Present illness Narrative* SARAHI Champion [...] (three) times a dayfor 7 days. - ilmgfols-lekkufpjn-GE (CORTISPORIN) otic solution; Administer 3 drops into [...] SARAHI Champion 10/24/24 1530 documented in this encounterMercy Health Anderson Hospital08-05-2025 NoteHNO ID: [id number] Author: CURTIS LEPE PA-C Service: ? Author Type: Physician Office Support Clerk Type: Progress Notes Filed: 12/12/2024 22:32 Note [...] visit. Either the patient or their legal freight representative has been informed of the risks [...] beyond the current two-m (more content not included)...[facility]07-15-2025 History of Present illness Narrative* Ymuiko Worrell LPN - 09/03/2024 10:20 AM EDT [...] or maintaining sleep 01/24/2023 Mild persistent asthma ([facility]) 01/24/2023 Polycystic ovaries 01/24/2023 Psychogenic nonepileptic seizure 01/24/2023 Class 3 severe obesity due to excess calories without serious comorbidity with body mass index (BMI) of 50.0 to 59.9 in adult ([facility]) 03/21/2023 Mild persistent asthma with (acute) exacerbation ([facility]) 10/10/2023 Fatigue 01/01/2024 Encounter for long-term (current) [...] Acute exacerbation of asthma with allergic rhinitis ([facility]) Allergies Asthma ([facility]) At low risk for fall Bipolar affective, mixed ([facility]) Change in blood pressure Cholecystitis 2008 Depressive disorder OMID (generalized anxiety disorder) History of hysterectomy 10/01/2021 Insomnia, persistent Migraines Mild persistent asthma without complication ([facility]) Morbid obesity with BMI of 40.0-44.9, adult [facility] PCOS (polycystic ovarian syndrome) Right otitis media [...] persistent Migraines Mild persistent asthma without complication ([facility]) Morbid obesity with BMI of 40.0-44.9, adult ([facility]) PCOS (polycystic ovarian syndrome) Psychogenic nonepileptic seizure Right otitis media Seizures ([facility]) stressed induced Social History Tobacco Use Smoking [...] nursing note reviewed. Exam conducted with a quality systems specialist present. Vitals: Estimated body mass index is [...] of: Zay Blas DO documented in this encounterNortheast Regional Medical CenterRzryxmcube17-78-3969 Miscellaneous Notes* [facility] En[facility] 9:19 AM EDT With Provider: VINCENT PEÑA [[facility]] Preferred Date Range: 08/27/2024 - 09/07/2024 Preferred Times: Any Reason for Visit: Same Day Comments: Asthma and allergy flareup documented in this encounterMercy Health Anderson Hospital07-07-2025 Telephone encounter Note* Telephone Encounter - [facility] - 08/26/2024 9:19 AM EDT With Provider: VINCENT PEÑA [[facility]] Preferred Date Range: 08/27/2024 - 09/07/2024 Preferred Times: Any Reason for Visit: Same Day Comments: Asthma and allergy flareup [facility] Wftubs53-97-7201 Telephone encounter Note* Telephone Encounter - Mendoza Dooley - 08/19/2024 3:31 PM EDT Called patient since she no-showed for infusions today. Patient is going to cancel her infusions because she is headache free at the moment. She does want to know what to do if her headaches come back. Forwarding message to provider [facility]06-30-2025 Miscellaneous Notes* Telephone Encounter - Mendoza Dooley - 08/19/2024 3:31 PM EDT Called patient since she no-showed for infusions today. Patient is going to cancel her infusions because she is headache free at the moment. She does want to know what to do if her headaches come back. Forwarding message to provider documented in this encounterCleveland Clinic Union Hospital06-27-2025 Telephone encounter Note * Telephone Encounter - Mendoza Dooley - 08/16/2024 11:44 AM EDT Patient last infusion was on 08/02 and only had one day. Routing to provider to see if she can come in [facility]06-27-2025 Miscellaneous Notes* Telephone Encounter - Mendoza [...] to patient or clarification documented in this encounterCleveland Clinic Union Hospital06-27-2025 Telephone encounter Note * Telephone Encounter - Eloina Gibbs LPN - 08/16/2024 10:54 AM EDT Forwarded to infusion team, provider and Mendoza [facility]06-27-2025 Telephone encounter Note* Telephone Encounter - Eloina Gibbs LPN - 08/16/2024 10:38 AM EDT MYC message sent to patient or clarification [facility]06-17-2025 Telephone encounter Note* Telephone Encounter - Rhiannon Bobo - 08/06/2024 9:58 AM EDT Ambulatory Pharmacy Prior Authorization Note Provider Intervention Required?: No - Pharmacy completed on your behalf. Was the PA documented within the ePA workqueue?: No Rx Plan: Medicaid [facility] ([facility]) Drug: Zavzpret 10MG/ACT solution Cover My Meds Chong: [id number] Determination: Approved Prior Authorization/Case #: [id number] Prior Authorization Expiration: 01/31/2025 Time to PA [...] refills. Prescriptions will now be processed through [facility] for determination of next steps. For questions relating to this submission, please contact [facility] at [phone] [facility]06-17-2025 Miscellaneous Notes* Telephone Encounter - Rhiannon Bobo - 08/06/2024 9:58 AM EDT Ambulatory Pharmacy Prior Authorization Note Provider Intervention Required?: No - Pharmacy completed on your behalf. Was the PA documented within the ePA workqueue?: No Rx Plan: Medicaid [facility] ([facility]) Drug: Zavzpret 10MG/ACT solution Cover My Meds Chong: [id number] Determination: Approved Prior Authorization/Case #: [id number] Prior Authorization Expiration: 01/31/2025 Time to PA [...] refills. Prescriptions will now be processed through [facility] for determination of next steps. For questions relating to this submission, please contact [facility] at [phone] documented in this encounterCleveland Clinic [facility] Hospital06-16-2025 Instructions* Patient Instructions* Curtis Lepe PA-C [...] more information and get the Copay Card: https://www.zavzpret.EcoBuddies™ Interactive/ Administration: Nose to toes or head level (do not tilt head back). Single spray in one nostril as needed for migraine. Do not prime. One dose per 24 hours. Avoid use with severe hepatic impairment or creatinine clearance less than 30ml/min. No contraindication to take zavzpret with nurtec or another CGRP antagonist. Use copay card. 6 doses in container. documented in this encounterCleveland Clinic [facility] Hospital06-13-2025 History of Present illness Narrative* Curtis [...] ZOLMitriptan (ZOMIG) 5 mg nasal spray^Use 1 [place] in the nose as needed at onset [...] articulation, and clear,coherent, and relevant. 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 Level of service: [facility] level 2 (10-19 min). Time spent 18 min on the day of service, which included preparing to see the patient, nhwp-bu-phee patient care, completing clinical documentation, obtaining and/or [...] XL, Qudexy) Anti-Depressant and Antipsychotic Amitriptyline (Elavil) Dunean (Eskalith, Lithobid) Nortriptyline (Pamelor, Aventyl) Blood Pressure Propranolol (Inderal) MABs Fremanezumab (Ajovy) Galcanezumab (Emgality) Botulinum Toxin Onabotulinum Toxin A (Botox) Supplements Magnesium The following abortive medications have been tried but require high frequency use which can lead toMedication Overuse Headache: Analgesic Ketorolac (Toradol) Anti-Migraine Dihydroergotamine (DHE-45, Migranal) Naratriptan (Amerge) Sumatriptan (Imitrex, Sumavel) Zolmitriptan (Zomig) Recording using [employer] Authoria software for draft documentation of the visit was discussed with the patient/authorized freight representative; all questions welcomed and answered. Patient/authorized freight representative agreed to proceed Curtis Lepe PA-C Headache Section [facility] August 02, 2024 documented in this encounterCleveland Clinic [facility] Hospital06-13-2025 NoteHNO ID: [id number] Author: CURTIS LEPE PA-C Service: ? Author Type: Physician Office Support Clerk Type: Progress Notes Filed: 08/05/2024 00:10 Note [...] ZOLMitriptan (ZOMIG) 5 mg nasal sprayUse 1 [place] in the nose as needed at onset [...] in rate, volume a (more content not included)...[facility] 08-02-2024 NoteHNO ID: [id number] Author: ALKA TRENT RN Service: ? Author Type: Registered Nurse Type: Progress Notes Filed: 08/02/2024 12:53 Note Text: Patient in for day 1 of IV infusions. Patient rated headache 10/10. Patient stated severe nausea and mild dizziness. Patient educated on medications to be administered and a driver/sales workers to transport home was confirmed. Patient verbalized understanding and agreed to proceed with infusions. PRn zofran and benadryl given PRN phenergan given Pts infusions complete. Pt tolerated infusion well. Pt rated headache 6/10. Pt stated mild nausea and moderate dizziness. Pt discharged from treatment room. [facility]06-13-2025 History of Present illness Narrative* Alka Trent RN - 08/02/2024 10:13 AM EDT Patient in for day 1 of IV infusions. Patient rated headache 10/10. Patient stated severe nausea and mild dizziness. Patient educated on medications to be administered and a driver/sales workers to transport home was confirmed. Patient verbalized understanding and agreed to proceed with infusions. PRn zofran and benadryl given PRN phenergan given Pts infusions complete. Pt tolerated infusion well. Pt rated headache 6/10. Pt stated mild nausea and moderate dizziness. Pt discharged from treatment room. documented in this encounterCleveland Clinic [facility] Hospital06-12-2025 NoteHNO ID: [id number] Author: CURTIS LEPE PA-C Service: ? Author Type: Physician Office Support Clerk Type: Progress Notes Filed: 08/01/2024 13:20 Note Text: Okay to come in for 1 day of non DHE IV infusions tomorrow.[facility]06-12-2025 History of Present illness Narrative* Curtis Lepe [...] day 1 infusions. 1236 Patient discharged to driver/sales workers headache pain unchanged. documented in this encounterCleveland Clinic Union Hospital06-12-2025 NoteHNO ID: [id number] Author: LENNIE PALACIOS RN Service: ? Author Type: Registered Nurse Type: Progress Notes Filed: 08/01/2024 13:20 Note Text: 11:00 Patient admitted to infusion area and history reviewed. Patient had headache 9/10 with moderate nausea and dizziness. Patient requests that infusions be provided for tomorrow since she is staying overnight. As per Curtis HERNANDZE, patient was put on for day 1 infusions. 1236 Patient discharged to driver/sales workers headache pain unchanged.[facility]06-04-2025 History of Present illness Narrative* Halima Johns, COUNTER CHECKER-AGENCY SALES REPRESENTATIVE - 07/24/2024 3:00 PM EDT Images from the original note were not included. Subjective CC: Infected toe/infection both eyes Patient ID: April Nicholson is a 28 y.o. female. CINTHIA Newberry presents with complaints of infection of right great toe. Relates had an infected toenail of her right great toe. States had a pedicure a few days ago, and cargoman cleaned out the ingrowntoenail region, and obtained a lot of green pus. States she also has had to do this in the past. Sandra feels the redness has improved, but is still sore to walk on the foot. Also relates both her eyes are light sensitive, puffy and feel bruised. This has been going on since mid-May. [facility] she talked to provider about this, and she tried taking allergy medication, along with allergy eye drops, but obtained no relief from these symptoms. Sandra states she follows up every 3 months with [facility] for migraines. Often times the last [...] Nose: Nose normal. No rhinorrhea. Mouth/Throat: Lips: Neligh. Mouth: Mucous membranes are moist. Pharynx: Oropharynx [...] De León 07/24/24 1707 documented in this encounterMercy Health Anderson Hospital05-16-2025 Telephone encounter Note* Telephone Encounter - Mendoza Dooley - 07/05/2024 3:08 PM EDT Images from the original note were not included. Left detailed voicemail message to schedule infusions [facility]05-16-2025 Miscellaneous Notes* Telephone Encounter - Mendoza Dooley - 07/05/2024 3:08 PM EDT Images from the original note were not included. Left detailed voicemail message to schedule infusions documented in this encounterCleveland [facility]05-[facility]-2025 Telephone encounter Note * Telephone Encounter - Kaye Lopez - 07/05/2024 12:22 PM EDT I have been unable to reach this patient by phone. A letter is being sent to the last known home address. [facility] 07/05, 07/12 Letter sent- 07/19 [facility] [id number] Miscellaneous Notes* This document contains information received [...] 8:59 AM EDT Approved or Denied?Approved Auth #[id number] Dates of span:06/25/2024 TO 09/24/2024 Method of contact:FAX * Telephone Encounter - Vita Velez - 07/02/2024 2:17 PM EDT Checked portal for PA Auth#[id number] still pending. * Telephone Encounter - Vita Velez - 06/25/2024 3:57 PM EDT Date initiated:06/25/2024 Insurance provider:Lyndsay Name of freight representative:portal(Urgent) Reference#:[id number] * Telephone Encounter - Viktoria Walton MS, [facility] [place] 06/25/2024 2:43 PM EDT Please preauthorize this patient for: CPT code for testin ICD-10 code for testing: Encounter Diagnoses Code Name Primary? Z84.89 Family history of genetic disorder Yes Ordering provider: Temo Name of test: Parental SNP Microarray Testing lab: [facility] Specimen requirement: isolated DNA Expected turnaround time: 2-3 weeks Is a Test Requisition Form required for this test: No Type of primary insurance (private or state HMO): State HMO ([employer] [facility]) Secondary Medicaid too? (Y/N): No Did the patient apply for [facility]? (Y/N): No If Yes, is it approved (provide approval dates) or still waiting on approval?: no Is a new blood sample required?: No Special lab draw instructions (e.g. Must draw on Monday-Monday): n/a Order placement: Default release COMMENTS: [facility] Plan ID: [id number] * Telephone Encounter - Viktoria Walton MS, [...] Licensed, Certified Genetic Counselor documented in this [facility]05-16-2025 Telephone encounter Note* Telephone Encounter - Vita Velez - 07/05/2024 8:59 AM EDT Approved or Denied?Approved Auth #[id number] Dates of span:06/25/2024 TO 09/24/2024 Method of contact:FAX [facility]05-16-2025 History of Present illness Narrative* Neeraj Shane - 07/05/2024 8:39 AM EDT Received [facility] FAX Forward FAX to Supporting Admin documented in this [facility]05-15-2025 Instructions* Patient Instructions* Curtis Lepe PA-C [...] care. Infusions are done here at [facility] [place] in the [facility]. Our infusion treatment room is where an [...] provider. It is best to have a driver/sales workers, as some medications we use may cause drowsiness. If you do not have a driver/sales workers, please let your nurse know and you [...] and heavy scented lotions. documented in this encounterCleveland Clinic [facility] Hospital05-[facility]-2025 History of Present illness Narrative* Curtis [...] visit. Either the patient or their legal freight representative has been informed of the risks [...] XL, Qudexy) Anti-Depressant and Antipsychotic Amitriptyline (Elavil) Dunean (Eskalith, Lithobid) Nortriptyline (Pamelor, Aventyl) Anti-Migraine Dihydroergotamine [...] ZOLMitriptan (ZOMIG) 5 mg nasal spray^Use 1 [place] in the nose as needed at onset [...] spontaneous and fluent without dysarthria. Short and fci memory, cognition and general fund of knowledgeare [...] XL, Qudexy) Anti-Depressant and Antipsychotic Amitriptyline (Elavil) Dunean (Eskalith, Lithobid) Nortriptyline (Pamelor, Aventyl) Blood Pressure [...] course of IV infusions, and call office ([phone]) with problems or concerns before appointment Level of Service: Virtual Visit 32 minutes Recording using ambient [email or web address] software for draft documentation of the visit was discussed with the patient/authorized freight representative; all questions welcomed and answered. Patient/authorized freight representative agreed to proceed This note was partially generated using MyOtherDrive voice recognition system, and there may be some incorrect words, spellings, and punctuation that were not noted in checking the note before saving. Curtis Lepe PA-C Headache Section [facility] July 04, 2024 documented in this encounterCleveland Clinic [facility] Hospital05-15-2025 NoteHNO ID: [id number] Author: CURTIS LEPE PA-C Service: ? Author Type: Physician Office Support Clerk Type: Progress Notes Filed: 07/04/2024 13:48 Note [...] visit. Either the patient or their legal freight representative has been informed of the risks [...] their effectiveness. She identifies (more content not included)...[facility] 07-02-2024 Telephone encounter Note* Telephone Encounter - Vita Velez - 07/02/2024 2:17 PM EDT Checked portal for PA Auth#[id number] still pending. [facility] [id number] History of Present illness Narrative* Ammy Carrington, [...] in female 12/19/2022 Mixed bipolar I disorder ([facility]HCC) 01/24/2023 Chronic migraine without aura without status migrainosus, not intractable ([facility]) 01/24/2023 Generalized anxiety disorder ([facility]) 01/24/2023 Persistent disorder of initiating or maintaining sleep 01/24/2023 Mild persistent asthma 01/24/2023 Polycystic ovaries 01/24/2023 Psychogenic nonepileptic seizure 01/24/2023 Class 3 severe obesity due to excess calories without serious comorbidity with body mass index (BMI) of 50.0 to 59.9 in adult 03/21/2023 Mild persistent asthma with (acute) exacerbation ([facility]) 10/10/2023 Fatigue 01/01/2024 Encounter for long-term (current) [...] Acute exacerbation of asthma with allergic rhinitis ([facility]) Allergies Asthma At low risk for fall Bipolar affective, mixed (HCC) ([facility]) Change in blood pressure Cholecystitis 2008 Depressive disorder ([facility]) OMID (generalized anxiety disorder) ([facility]) History of hysterectomy 10/01/2021 Insomnia, persistent Migraines ([facility]) Mild persistent asthma without complication ([facility]) Morbid obesity with BMI of 40.0-44.9, adult ([facility]) PCOS (polycystic ovarian syndrome) Right otitis media Seizures ([facility]) HISTORY PAST MEDICAL HISTORY SOCIAL HISTORY Past Medical History: Diagnosis Date Acute exacerbation of asthma with allergic rhinitis ([facility]) Allergies Asthma At low risk for fall Bipolar affective, mixed (HCC) ([facility]) Change in blood pressure high and low Cholecystitis 2008 Chronic migraine without aura without status migrainosus, not intractable ([facility]) Depressive disorder ([facility]) OMID (generalized anxiety disorder) ([facility]) History of hysterectomy 10/01/2021 Insomnia, persistent Migraines ([facility]) Mild persistent asthma without complication ([facility]) Morbid obesity with BMI of 40.0-44.9, adult ([facility]) PCOS (polycystic ovarian syndrome) Psychogenic nonepileptic seizure Right otitis media Seizures ([facility]) stressed induced Social History Tobacco Use Smoking [...] of: Zay Blas DO documented in this encounterNortheast Regional Medical [id number] Telephone encounter Note* Telephone Encounter - Vita Velez - 06/25/2024 3:57 PM EDT Date initiated:06/25/2024 Insurance provider:Lyndsay Name of freight representative:portal(Urgent) Reference#:[id number] [facility] [id number] Telephone encounter Note* Telephone Encounter - Viktoria Walton MS, [facility] - 06/25/2024 2:43 PM EDT Please preauthorize this patient for: CPT code for testin ICD-10 code for testing: Encounter Diagnoses Code Name Primary? Z84.89 Family history of genetic disorder Yes Ordering provider: Temo Name of test: Parental SNP Microarray Testing lab: [facility] Specimen requirement: isolated DNA Expected turnaround time: 2-3 weeks Is a Test Requisition Form required for this test: No Type of primary insurance (private or state HMO): State HMO ([employer]) Secondary Medicaid too? (Y/N): No Did the patient apply for [facility]? (Y/N): No If Yes, is it approved (provide approval dates) or still waiting on approval?: no Is a new blood sample required?: No Special lab draw instructions (e.g. Must draw on Monday-Monday): n/a Order placement: Default release COMMENTS: [facility] Plan ID: [id number] [facility] [id number] Telephone encounter Note* Telephone Encounter - Viktoria [...] Walton MS, [place] Licensed, Certified Genetic Counselor [facility] [id number] Miscellaneous Notes* Telephone Encounter - Nirmala Lopez - 06/07/2024 1:17 PM EDT Contract: 148 No need to call documented in this [facility]Mer[facility]-18-2025 Telephone encounter Note* Telephone Encounter - Nirmala Lopez - 06/07/2024 1:17 PM EDT Contract: 148 No need to call [facility]04-17-2025 History of Present illness Narrative* Corine Gold MD - 06/06/2024 4:30 PM EDT Images from the original note were not included. [address] [place] [phone] Patient: April Nicholson Date of : [...] Visit via Real-time Synchronous Audiovisual Provider Location: [facility] [address] [place] [phone] Patient Location: Patient's home Video Visit Consent [...] that there are some limitations compared to apcl-qk-bdlb evaluations. The patient consented to the presence of additional virtual and/or in-person participants. We elected to proceed. CORINE GOLD MD Family Medicine Physician [facility] 06/06/24 This note was completed with voice recognition software. The document was reviewed for errors however some may still be present. Please do not hesitate to contact/[facility] the author to verify any questions/concerns. documented in this encounterNorth Country HospitalVigilent [id number] Telephone encounter Note* Telephone Encounter - Amy [...] spray 12 each 5 Sig: Use 1 [place] in the nose as needed at onset of migraine headache. If symptoms persist or return, may repeat dose in other nostril after 2 hours. Maximum of 2 sprays per 24 hours Last visit 05/03/2024 with Sherif HERNANDEZ Next scheduled Visit date not found [facility]04-14-2025 Miscellaneous Notes* Telephone Encounter - Amy [...] spray 12 each 5 Sig: Use 1 [place] in the nose as needed at onset of migraine headache. If symptoms persist or return, may repeat dose in other nostril after 2 hours. Maximum of 2 sprays per 24 hours Last visit 05/03/2024 with Sherif HERNANDEZ Next scheduled Visit date not found documented in this encounterCleveland Clinic [facility] Hospital04-01-2025 History of Present illness Narrative* Rajinder Cotton DO - 05/21/2024 9:30 AM EDT Images from the original note were not included. [facility] [address] [place] [address] [place] [address] Patient: April Nicholson Date of : 1995 Encounter Date: 05/21/2024 Subjective: Chief Complaint Chief Complaint Patient presents with sinus infection History of Present Illness April Nicholson is a 28 y.o. female, established patient, that presents to the office for acute sinus congestion. History provided by patient. Sinus Problem This is a new problem. Episode onset: 4 days ago. Maximum temperature: [place] feverish. Associated symptoms include chills (With associated [...] and frontal sinus tenderness present. Mouth/Throat: Lips: [place]. No lesions. Mouth: Mucous membranes are moist. [...] 03/25/2024 Prolonged emergence from general anesthesia Seizure ([facility]) Last one 03-11-2024 Past Surgical History: Procedure Laterality Date APPENDECTOMY SECTION CHOLE[facility]Y [facility] LYSIS OF ADHESIONS N/A 03/28/2024 Performed by Mundo Martinez MD at [facility] LYSIS OF ADHESIONS N/A 03/28/2024 Performed by Jesse Sultana MD at [facility] [place] OOPHORECTOMY/FROZEN SECTION Bilateral 03/28/2024 Performed by Mnudo Martinez MD at [facility] [...] Physical Activity: Insufficiently Active (01/23/2024) Received from [facility] Exercise Vital Sign Days of Exercise per Week: 7 days Minutes of Exercise per Session: 10 min Stress: Stress Concern Present (01/23/2024) Received from [facility] [place] of Occupational Health - Occupational Stress Questionnaire Feeling of Stress : Rather much Social Connections: Socially Integrated (01/23/2024) Received from [facility] Social Connection and Isolation Panel [NHANES] Frequency of Communication with Friends and Family: More than three times a week Frequency of Social Gatherings with Friends and Family: Twice a week Attends Jehovah'S Witness Services: More than 4 times per year [...] mg total) by mouth in the morning. iohjlpzyvpl-wprucdffm-qymiunxc (TRELEGY ELLIPTA) 200-62.5-25 mcg blister with device [...] DO 05/21/24 10:30 AM documented in this encounterSt. Mary's Medical Center, Iront[facility] CampusFinario [facility]ist[facility] [id number] Instructions* Patient Instructions* Rajinder Cotton DO - [...] yeast infection from antibiotics documented in this encounterMercy Health [facility] Hospital03-26-2025 History of Present illness Narrative* MARY Cintron - 05/15/2024 8:30 AM EDT Subjective: April Nicholson is a 28 y.o. female who is s/p a laparoscopic BSO, FANNY on 03/28/24. Pathology: benign She unfortunately was admitted to [facility] on 04/08/24 after experiencing high fevers [...] at [facility] LYSIS OF ADHESIONS N/A 03/28/2024 Performed by Jesse Sultana MD at [facility] [place] OOPHORECTOMY/FROZEN SECTION [...] Physical Activity: Insufficiently Active (01/23/2024) Received from [facility] Exercise Vital Sign Days of Exercise per Week: 7 days Minutes of Exercise per Session: 10 min Stress: Stress Concern Present (01/23/2024) Received from [facility] [place] of [employer]ational Health - Occupational Stress Questionnaire Feeling of Stress : Rather much Social Connections: Socially Integrated (01/23/2024) Received from [facility] Social Connection and Isolation Panel [NHANES] Frequency of Communication with Friends and Family: More than three times a week Frequency of Social Gatherings with Friends and Family: Twice a week Attends Jehovah'S Witness Services: More than 4 times per year [...] anomaly not found LOC (loss of consciousness) ([facility]) Migraine with aura and without status migrainosus, [...] be continued by her PCP or primary residential direct support professional. Estradiol 1 mg tablet once daily PO. *The patient has a documented plan of care to address pain. All questions were answered to the patient's satisfaction. She is agreeable to this plan of care. *This note was completed using a voice quality control director system. Every effort was made to ensure accuracy. However, inadvertent computerized quality control director errors may be present. .Total time spent was 15 minutes: Preparing to see the patient (e.g., review of tests) Performing a medically appropriate examination and/or evaluation Counseling and educating the patient/family/caregiver Ordering medications, tests, or procedures Documenting clinical information in the electronic or other health record Care coordination (not separately reported) Svetlana Ye PA-C, RD, IF MARY Cintron 05/15/24 0913 documented in this encounterNorth Country HospitalVigilent [id number] Telephone encounter Note* Telephone Encounter - Angely Cotton RN - 05/13/2024 9:19 AM EDT Ambulatory Pharmacy Prior Authorization Note Provider Intervention Required?: No - Pharmacy completed on your behalf. Was the PA documented within the [facility] workqueue?: No Rx [facility] Drug: Ubrelvy 100MG tablets Cover My Meds Chong: [id number] Determination: Approved Prior Authorization/Case #: [id number] Prior Authorization Expiration: 05/07/24 Time to PA [...] refills. Prescriptions will now be processed through [facility] for determination of next steps. For questions relating to this submission, please contact [facility] at [phone] [facility] Work Phone: [phone] 115-998303-24-2025 Miscellaneous Notes* Telephone Encounter - Angely Cotton RN - 05/13/2024 9:19 AM EDT Ambulatory Pharmacy Prior Authorization Note Provider Intervention Required?: No - Pharmacy completed on your behalf. Was the PA documented within the [facility] workqueue?: No Rx Plan: Medicaid MCO ([place]) Drug: Ubrelvy 100MG tablets Cover My Meds Chong: [id number] Determination: Approved Prior Authorization/Case #: [id number] Prior Authorization Expiration: 05/07/24 Time to PA [...] refills. Prescriptions will now be processed through [facility] for determination of next steps. For questions relating to this submission, please contact [facility] at [phone] * Telephone Encounter - Angely Cotton RN - 05/08/2024 3:20 PM EDT [facility] received prescription(s) for Ubrelvy 100MG tablets . Benefits investigation was conducted, indicating that a prior authorization is required. All pertinent clinical information was submitted to insurance. Epic- Referral # [id number] Angely Cotton RN [facility] P: , F: * Telephone Encounter - Angely Cotton RN - 05/07/2024 10:[address] Lepe , Pt's ubrelvy needs a PA . I am unable to complete a PA since your office note is unfinished. Pleaselet me know when you have completed it and I will put in the PA tio. Thanks! Angely Cotton RN [facility] P: , F: documented in this encounterCleveland Clinic [facility] Hospital03-19-2025 Telephone encounter Note * Telephone Encounter - Angely Cotton RN - 05/08/2024 3:20 PM EDT [facility] received prescription(s) for Ubrelvy 100MG tablets . Benefits investigation was conducted, indicating that a prior authorization is required. All pertinent clinical information was submitted to insurance. Epic- Referral # [id number] Angely Cotton RN [facility] P: , F: [facility]03-18-2025 Telephone encounter Note* Telephone Encounter - Angely Cotton RN - 05/07/2024 10:[address] Lepe , Pt's ubrelvy needs a PA . I am unable to complete a PA since your office note is unfinished. Pleaselet me know when you have completed it and I will put in the PA tio. Thanks! Angely Cotton RN [facility] P: , F: [facility]03-14-2025 Instructions* Patient Instructions* Curtis Lepe PA-C [...] and dry mouth. PATIENT ASSISTANCE PROGRAM (PAP): https://www.[employer].com/patients/patient-support/patient-assistance /eligibility-criteria.html#myabbvie - Start taking Ubrelvy as prescribed [...] your clinician as needed. documented in this encounterCleveland Clinic [facility] Hospital03-14-2025 History of Present illness Narrative* Curtis Lepe [...] visit. Either the patient or their legal freight representative has been informed of the risks [...] XL, Qudexy) Anti-Depressant and Antipsychotic Amitriptyline (Elavil) Dunean (Eskalith, Lithobid) Nortriptyline (Pamelor, Aventyl) Anti-Migraine Dihydroergotamine [...] ZOLMitriptan (ZOMIG) 5 mg nasal spray^Use 1 [place] in the nose as needed at onset [...] spontaneous and fluent without dysarthria. Short and fci memory, cognition and general fund of knowledgeare [...] XL, Qudexy) Anti-Depressant and Antipsychotic Amitriptyline (Elavil) Dunean (Eskalith, Lithobid) Nortriptyline (Pamelor, Aventyl) Blood Pressure [...] XL, Qudexy) Anti-Depressant and Antipsychotic Amitriptyline (Elavil) Dunean (Eskalith, Lithobid) Nortriptyline (Pamelor, Aventyl) Blood Pressure [...] time Follow-up: 2 months and call office ([phone]) with problems or concerns before appointment Level of Service: Virtual Visit 35 minutes The patient consented to the use of Peopleclick Authoria software for draft documentation of the visit consistent with [facility] s Notice of Privacy Practices. This note was partially generated using MyOtherDrive voice recognition system, and there may be some incorrect words, spellings, and punctuation that were not noted in checking the note before saving. Curtis Lepe PA-C Headache Section [facility] May 03, 2024 documented in this encounterCleveland Clinic [facility] Hospital03-14-2025 NoteHNO ID: [id number] Author: CURTIS LEPE PA-C Service: ? Author Type: Physician Office Support Clerk Type: Progress Notes Filed: 05/08/2024 00:02 Note [...] visit. Either the patient or their legal freight representative has been informed of the risks [...] Migraine headache severity: 10/ (more content not included)...[facility]03-13-2025 NoteHNO ID: [id number] Author: CLAUDIA MAYNARD RN Service: ? Author [...] and agreeable to plan. Patient discharged to driver/sales workers.[facility]03-13-2025 History of Present illness Narrative* Claudia Maynard [...] and agreeable to plan. Patient discharged to driver/sales workers. documented in this encounterCleveland Clinic [facility] Hospital03-11-2025 Miscellaneous Notes* Telephone Encounter - Caterina Smith CMA - 04/30/2024 8:41 AM EDT Attempted to contact patient regarding refill sent in. No answer, left voicemail. documented in this encounterMercy Health [facility] Hospital03-11-2025 Telephone encounter Note* Telephone Encounter - Caterina Smith CMA - 04/30/2024 8:41 AM EDT Attempted to contact patient regarding refill sent in. No answer, left voicemail. [facility]03-10-2025 History of Present illness Narrative* MARY Cintron - 04/29/2024 2:20 PM EDT Patient called asking for refill of oxycodone for post op pain. Upon reviewing her OARRS it would appear she had Tylenol III refilled last week at [facility] [place] [place]. Discussed this with patient who states [...] post op pain. She expressed understanding. [facility] completing phone call with patient. Pharmacy staff confirmed prescription for Tylenol III was picked up on 3/3/25 with a receipt available to view. MARY Cintron 04/29/24 1440 documented in this encounterMercy Health Anderson Hospital03-10-2025 History of Present illness Narrative* SARAHI Champion - 04/29/2024 9:18 AM EDT The OARRS/MAPPS database was reviewed today and found to be appropriate. No indication of medication diversion, or non compliance. SARAHI Champion 04/29/24 0918 documented in this encounterMercy Health Anderson Hospital03-06-2025 History of Present illness Narrative* Corine Gold MD - 04/25/2024 1:00 PM EST Images from the original note were not included. [address] [place] [address] [address] [facility] [id number] Patient: April Nicholson Date of : 1995 Encounter Date: 04/25/2024 SUBJECTIVE: HISTORY OF PRESENT ILLNESS: Chief Complaint: Chief Complaint Patient presents with [facility] Patient ID: April is a 28 [...] Has 4 special needs children Does require interactive multimedia designer attention Previously had viapti infusion for migraine headaches Is on valium and lamictal for non epileptiform seizure. Has episodes of zoning out. No history of Sleep Study Support system is fragmented -parents -Zoroastrian -2 fathers of childrens - not interested in being involved. PAST MEDICAL HISTORY: Past Medical History: Diagnosis Date Anxiety Asthma BV (bacterial vaginosis) Depression Migraine 15 days out of the month-receives an infusion every 3 months MRSA (methicillin resistant Staphylococcus aureus) In a buttocks wound in 8th grade Ovarian cyst, bilateral 03/25/2024 Prolonged emergence from general anesthesia Seizure ([facility]) Last one 03-11-2024 PAST SURGICAL HISTORY: Past Surgical History: Procedure Laterality Date APPENDECTOMY SECTION CHOLECYSTECTOMY [facility] DV5 LYSIS OF ADHESIONS N/A 03/28/2024 Performed by Mundo Martinez MD at [facility] DV5 LYSIS OF ADHESIONS N/A 03/28/2024 Performed by Jesse Sultana MD at [facility] [place] OOPHORECTOMY/FROZEN SECTION Bilateral 03/28/2024 Performed [...] Physical Activity: Insufficiently Active (01/23/2024) Received from [facility] Exercise Vital Sign Days of Exercise per Week: 7 days Minutes of Exercise per Session: 10 min Stress: Stress Concern Present (01/23/2024) Received from [facility] [place] [facility] [employer] [facility] - Occupational Stress Questionnaire Feeling of Stress : Rather much Social Connections: Socially Integrated (01/23/2024) Received from [facility] Social Connection and Isolation Panel [NHANES] Frequency of Communication with Friends and Family: More than three times a week Frequency of Social Gatherings with Friends and Family: Twice a week Attends Jehovah'S Witness Services: More than 4 times per year [...] TWO PUFFS BY MOUTH EVERY 4 HOURS IMLBIF10 g 1 cetirizine (ZyrTEC) 10 mg tablet Take 1 tablet (10 mg total) by mouth in the morning. 30 tablet 0 diazePAM (VALIUM) 10 mg tablet Take 0.5 tablets (5 mg total) by mouth in the morning and at bedtime. baxrmnlgops-ghnnlcxng-fxtddotz (TRELEGY ELLIPTA) 200-62.5-25 mcg blister with device [...] unremarkable. CORINE GOLD MD Family Medicine Physician [facility] / [facility] 04/25/24 This note was completed with voice recognition software. The document was reviewed for errors however some may still be present. Please do not hesitate to contact/Epic ms the author to verify any questions/concerns. documented in this encounterMer[facility]03-[facility] History of Present illness Narrative* Alice Wright RN - 04/24/2024 3:13 PM EST Images from the original note were not included. [facility] pharmacy notified. Spoke with Leonie. MARY Cintron RN Up to twice daily, thanks! Previous Messages ----- Message ----- From: Alice Wright RN Sent: 04/24/2024 2:17 PM EST To: MARY Cintron [facility] pharmacy called for clarification on the lidocaine cream. How many times a day can she the cream? Please advise. Thank you, Rubi documented in this [facility]03-05-2025 History of Present illness Narrative* MARY Cintron - 04/24/2024 9:30 AM EST Subjective: April Nicholson is a 28 y.o. female who is s/p a laparoscopic BSO, FANNY on 03/28/24. Pathology: benign She unfortunately was admitted to [facility] on 04/08/24 after experiencing high fevers despite being on antibiotics. The patient stated that she completed a 7-day course of clindamycin post-operatively. Oneday prior to presentation to the ED, the patient had been evaluated at [facility] and was given 1 dose [...] at [facility] DV5 LYSIS OF ADHESIONS N/A 03/28/2024 Performed by Jesse Sultana MD at [facility] [place] OOPHORECTOMY/FROZEN SECTION Bilateral 03/28/2024 Performed [...] Physical Activity: Insufficiently Active (01/23/2024) Received from [facility] Exercise Vital Sign Days of Exercise per Week: 7 days Minutes of Exercise per Session: 10 min Stress: Stress Concern Present (01/23/2024) Received from [facility] [place] [employer] - Occupational Stress Questionnaire Feeling of Stress : Rather much Social Connections: Socially Integrated (01/23/2024) Received from [facility] Social Connection and Isolation Panel [NHANES] Frequency of Communication with Friends and Family: More than three times a week Frequency of Social Gatherings with Friends and Family: Twice a week Attends Jehovah'S Witness Services: More than 4 times per year [...] anomaly not found LOC (loss of consciousness) ([facility]) Migraine with aura and without status migrainosus, not intractable Bilateral occipital neuralgia Asthma without status asthmaticus Anxiety Depressive disorder Seizure-like activity ([facility]) Simple partial seizure disorder ([facility]) Psychogenic nonepileptic seizure Acute cough S/P bilateral [...] *This note was completed using a voice quality control director system. Every effort was made to ensure accuracy. However, inadvertent computerized quality control director errors may be present. .Total time spent was 35 minutes: Preparing to see the patient (e.g., review of tests) Performing a medically appropriate examination and/or evaluation Counseling and educating the patient/family/caregiver Ordering medications, tests, or procedures Documenting clinical information in the electronic or other health record Care coordination (not separately reported) Svetlana Ye PA-C, RD, IF MARY Cintron 04/24/24 1228 documented in this encounterMercy [facility]03-03-2025 Telephone encounter Note* Telephone Encounter - Mendoza Dooley - 04/22/2024 4:23 PM EST Calls were returned to patient. Patient is scheduled for [facility]pti [facility]03-03-2025 Miscellaneous Notes* Telephone Encounter - Mendoza Dooley - 04/22/2024 4:23 PM EST Calls were returned to patient. Patient is scheduled for vyepti documented in this encounterCleveland [facility]02-[facility] History of Present illness Narrative* Yumiko [...] in female 12/19/2022 Mixed bipolar I disorder ([facility]) 01/24/2023 Chronic migraine without aura without status migrainosus, not intractable ([facility]) 01/24/2023 Generalized anxiety disorder ([facility]) 01/24/2023 Persistent disorder of initiating or maintaining sleep 01/24/2023 Mild persistent asthma ([facility]) 01/24/2023 Polycystic ovaries 01/24/2023 Psychogenic nonepileptic seizure ([facility]) 01/24/2023 Class 3 severe obesity due to excess calories without serious comorbidity with body mass index (BMI) of 50.0 to 59.9 in adult ([facility]) 03/21/2023 Mild persistent asthma with (acute) exacerbation ([facility]) 10/10/2023 Fatigue 01/01/2024 Encounter for long-term (current) [...] Acute exacerbation of asthma with allergic rhinitis ([facility]) Allergies Asthma ([facility]) At low risk for fall Bipolar affective, mixed (HCC) ([facility]) Change in blood pressure Cholecystitis 2009 Depressive disorder ([facility]) OMID (generalized anxiety disorder) ([facility]) History of hysterectomy 10/01/2021 Insomnia, persistent Migraines ([facility]) Mild persistent asthma without complication ([facility]) Morbid obesity with BMI of 40.0-44.9, adult ([facility]) PCOS (polycystic ovarian syndrome) Right otitis media Seizures ([facility]) HISTORY PAST MEDICAL HISTORY SOCIAL HISTORY Past Medical History: Diagnosis Date Acute exacerbation of asthma with allergic rhinitis ([facility]) Allergies Asthma ([facility]) At low risk for fall Bipolar affective, mixed (HCC) ([facility]) Change in blood pressure high and low Cholecystitis 2008 Chronic migraine without aura without status migrainosus, not intractable ([facility]) Depressive disorder ([facility]) OMID (generalized anxiety disorder) ([facility]) History of hysterectomy 10/01/2021 Insomnia, persistent Migraines ([facility]) Mild persistent asthma without complication ([facility]) Morbid obesity with BMI of 40.0-44.9, adult ([facility]) PCOS (polycystic ovarian syndrome) Psychogenic nonepileptic seizure ([facility]) Right otitis media Seizures ([facility]) stressed induced Social History Tobacco Use Smoking [...] nursing note reviewed. Exam conducted with a quality systems specialist present. Vitals: Estimated body mass index is [...] of: Zay Blas DO documented in this encounterNortheast Regional Medical [id number] History of Present illness Narrative* MARY Cintron - 04/15/2024 9:00 AM EST Subjective: April Nicholson is a 28 y.o. female who is s/p a laparoscopic BSO, FANNY on 03/28/24. Pathology: benign She unfortunately was admitted to [facility] on 04/08/24 after experiencing high fevers despite being on antibiotics. The patient stated that she completed a 7-day course of clindamycin post-operatively. Oneday prior to presentation to the ED, the patient had been evaluated at [facility] and was given 1 dose [...] History: Procedure Laterality Date APPENDECTOMY SECTION CHOLECYSTECTOMY [place] [address] LYSIS OF ADHESIONS N/A 03/28/2024 Performed by Mundo Martinez MD at [place] [address] LYSIS OF ADHESIONS N/A 03/28/2024 Performed by Jesse Sultana MD at [place] [address] [place] OOPHORECTOMY/FROZEN SECTION Bilateral 03/28/2024 Performed by [...] 03/25/2024 Prolonged emergence from general anesthesia Seizure ([facility]) Last one 03-11-2024 Family History Problem [...] Physical Activity: Insufficiently Active (01/23/2024) Received from [facility] Exercise Vital Sign Days of Exercise per Week: 7 days Minutes of Exercise per Session: 10 min Stress: Stress Concern Present (01/23/2024) Received from [facility] [place] [employer] - Occupational Stress Questionnaire Feeling of Stress : Rather much Social Connections: Socially Integrated (01/23/2024) Received from [facility] Social Connection and Isolation Panel [NHANES] Frequency of Communication with Friends and Family: More than three times a week Frequency of Social Gatherings with Friends and Family: Twice a week Attends Jehovah'S Witness Services: More than 4 times per year [...] anomaly not found LOC (loss of consciousness) ([facility]) Migraine with aura and without status migrainosus, not intractable Bilateral occipital neuralgia Asthma without status asthmaticus Anxiety Depressive disorder Seizure-like activity ([facility]) Simple partial seizure disorder ([facility]) Psychogenic nonepileptic seizure Acute cough S/P bilateral [...] *This note was completed using a voice quality control director system. Every effort was made to ensure accuracy. However, inadvertent computerized quality control director errors may be present. .Total time spent was 35 minutes: Preparing to see the patient (e.g., review of tests) Performing a medically appropriate examination and/or evaluation Counseling and educating the patient/family/caregiver Ordering medications, tests, or procedures Documenting clinical information in the electronic or other health record Care coordination (not separately reported) Svetlana Ye PA-C, RD, IF MARY Cintron 04/16/24 1237 documented in this encounterSt. Mary's Medical [facility], [facility]ont[facility] CampusZindigo02-19-2025 Progress note* Discharge Planning Note - Desiree Theodore RN - 04/10/2024 3:04 PM EST DISCHARGE PLANNING NOTE Patient's RN reported that patient would like a rolling walker at discharge, Referral placed on [employer] with script and face to face documentation attached with a requestof delivery to patient's room today for discharge. Cloth Washer Operator will follow for discharge transition - DESIREE THEODORE RN 04/10/24 3:05 PM [facility] [id number] Miscellaneous Notes* Discharge Planning Note - Desiree Theodore RN - 04/10/2024 3:04 PM EST DISCHARGE PLANNING NOTE Patient's RN reported that patient would like a rolling walker at discharge, Referral placed on [employer] with script and face to face documentation attached with a requestof delivery to patient's room today for discharge. Cloth Washer Operator will follow for discharge transition - [...] rounds, barriers to discharge are: No barriers. [facility] referralsent for [facility]. Patient states that she is not comfortable doing her own wound care. Has family that assist 4-5 times per week with wound care. Discharge Plan: Plan is home with HCC if able to find company to agree to care. Will arrange outpatient wound care if unable to find accepting [facility]. Cloth Washer Operator will continue to follow for any discharge needs. - Nicky Buchanan RN 04/10/24 10:38 AM * Plan of Care - Effie Keene RN - 04/10/2024 8:07 AM EST Problem: Pain Goal: Patient goal is pain score less than 4, able to rest, and participant in treatment plan as appropriate Description: INTERVENTIONS: 1. Encourage patient or legal freight representative to report early pain and ask [...] per policy 9. Teach patient or legal freight representative interventions for comforting Outcome: Progressing Note: [...] at the bedside 7. Instruct patient/ patient freight representative about use of safety devices 8. Include patient/ patient freight representative in decisions related to safety Outcome: [...] hygiene technique. 7. Identify and instruct patient/patient freight representative in use of appropriate isolation precautionsfor identified infection/symptoms. 8. Provide and discuss with patient/patient freight representative on educational MDRO sheet. 9. Encourage and monitor nutritional status daily and consult side stapler if indicated. 10. Implement neutropenic guidelines as needed. Outcome: Progressing Note: Evaluation of progress towards goal: Patient afebrile, vital signs stable at this time. Continuing to monitor. Problem: Knowledge Deficit Goal: Patient/patient freight representative demonstrates understanding of disease process, treatment [...] Score of =/> 25 or indicated by [facility] Assessment Goal: Patient should be free from fall Description: Interventions: 1. [place] to environment 2. Hourly rounds addressing the [...] non-skid footwear 11. Teach patient and patient freight representative to maintain environment for safety and [...] (cane, walker) within reach 19. Request patient freight representative bring adaptive equipment/mobility aids from home or obtain and provide as needed 20. Consult pharmacy regarding effects of med's affecting mobility, cognition, and alternatives 21. Obtain physician order for PT if risk factors associated with mobility are present 22. Obtain physician order for OT as appropriate 23. Utilize diversional activities 24. Educate patient and patient freight representative how to maintain a safe environment during visitationtimes (notify nurse prior to leaving bedside) 25. Consider appropriateness of medical or non-medical territory manager 26. Set up voiding schedule as appropriate (every 2 hours) Outcome: Progressing Note: Evaluation of progress towards goal: Patient remains free from falls at this time. Interventions in place to help prevent falls. Continuing to monitor. Problem: Low Risk Fall Score Description: Nath Fall Score of 0 - 24 or [facility] Goal: Patient should be free from fall Description: Interventions: 1. [place] to environment 2. Hourly rounds addressing the [...] non-skid footwear 11. Teach patient and patient freight representative to maintain environment for safety and [...] Description: INTERVENTIONS: 1. Encourage patient or legal freight representative to report early pain and ask [...] per policy 9. Teach patient or legal freight representative interventions for comforting Outcome: Progressing Note: [...] at the bedside 7. Instruct patient/ patient freight representative about use of safety devices 8. Include patient/ patient freight representative in decisions related to safety Outcome: [...] hygiene technique. 7. Identify and instruct patient/patient freight representative in use of appropriate isolation precautionsfor identified infection/symptoms. 8. Provide and discuss with patient/patient freight representative on educational MDRO sheet. 9. Encourage and monitor nutritional status daily and consult side stapler if indicated. 10. Implement neutropenic guidelines as needed. Outcome: Progressing Note: Evaluation of progress towards goal: Standard precautions and hand hygiene used to prevent infection Problem: Knowledge Deficit Goal: Patient/patient freight representative demonstrates understanding of disease process, treatment [...] Collaborate with ancillary departments 14. Include patient/patient freight representative in decisions related to anxiety Outcome: [...] Score of =/> 25 or indicated by [facility] Assessment Goal: Patient should be free from fall Description: Interventions: 1. [place] to environment 2. Hourly rounds addressing the [...] non-skid footwear 11. Teach patient and patient freight representative to maintain environment for safety and [...] (cane, walker) within reach 19. Request patient freight representative bring adaptive equipment/mobility aids from home or obtain and provide as needed 20. Consult pharmacy regarding effects of med's affecting mobility, cognition, and alternatives 21. Obtain physician order for PT if risk factors associated with mobility are present 22. Obtain physician order for OT as appropriate 23. Utilize diversional activities 24. Educate patient and patient freight representative how to maintain a safe environment during visitationtimes (notify nurse prior to leaving bedside) 25. Consider appropriateness of medical or non-medical territory manager 26. Set up voiding schedule as appropriate [...] care 6. Collaborate with pastoral/spiritual care, social media specialist, mental health counselor as needed. 7. Instruct patient on diversional activities such as physical activity, distraction, and deep breathing exercises to assist with coping 8. Involve patient's freight representative in care Outcome: Completed Note: Evaluation of progress towards goal: completed * Discharge Planning Note - Nicky Buchanan RN - 04/09/2024 2:58 PM EST DISCHARGE PLANNING NOTE Update: [facility] unable to accept. Referrals for [place] [facility] per patient choice sent. Waiting on reply. - Nicky Buchanan RN 04/09/24 2:59 PM * Discharge Planning Note - Nicky Buchanan RN - 04/09/2024 10:45 AM EST DISCHARGE PLANNING NOTE [place] met with patient, introduced self, and explained role. Patient educated on safe discharge plan. Pt admitted 04/08/2024 with Abdominal wall cellulitis [L03.311] Sepsis ([facility]) [A41.9] Postoperative surgical complication involving genitourinary system [...] 03/25/2024 Prolonged emergence from general anesthesia Seizure ([facility]) Last one 03-11-2024 Prior to admission patient was living with family and self care. Medical equipment patient used prior to admission includes: None. Patient denies need for transportation/ food/ prescription medication assistance resources. Patient lives with minor children and boyfriend. Has support from mother. Referral sent to [facility] per patient choice- her daughter has used them before. PCP: CORINE GOLD MD Pharmacy:[facility] in [place] PCP and pharmacy confirmed with patient. CN offered to assist with follow up appointment arrangements; patient declines - states will self-schedule follow up appointments. CORINE GOLD MD added to Follow Up Providers for Summary of Care communication. Per patient self-report: Drug use: no Smoking: no ETOH Use: no Current discharge plan is: Home with [facility] for wound care Services Requested: Services Requested Patient expects to be discharged to:: home Discharge Disposition: Home with home health services Does the patient need discharge transportation arranged?: No Patient choice offered: Yes List Provided: Yes [facility] List Provided: Home Care Visiting Physician/Provider: Corine Gold Goals: Goals home (pt-stated) Evaluation of progress towards goal: Patient stated goal is to return home with [facility] for assistance with wound care Will continue [...] Description: INTERVENTIONS: 1. Encourage patient or legal freight representative to report early pain and ask [...] per policy 9. Teach patient or legal freight representative interventions for comforting Outcome: Progressing Note: [...] at the bedside 7. Instruct patient/ patient freight representative about use of safety devices 8. Include patient/ patient freight representative in decisions related to safety Outcome: [...] hygiene technique. 7. Identify and instruct patient/patient freight representative in use of appropriate isolation precautionsfor identified infection/symptoms. 8. Provide and discuss with patient/patient freight representative on educational MDRO sheet. 9. Encourage and monitor nutritional status daily and consult side stapler if indicated. 10. Implement neutropenic guidelines as needed. Outcome: Progressing Note: Evaluation of progress towards goal: on iv atb. Cont to trend labs.fevers Problem: Knowledge Deficit Goal: Patient/patient freight representative demonstrates understanding of disease process, treatment [...] Collaborate with ancillary departments 14. Include patient/patient freight representative in decisions related to anxiety Outcome: [...] care 6. Collaborate with pastoral/spiritual care, social media specialist, mental health counselor as needed. 7. Instruct patient on diversional activities such as physical activity, distraction, and deep breathing exercises to assist with coping 8. Involve patient's freight representative in care Outcome: Progressing Note: Evaluation of progress towards goal: able to voice concerns. Problem: Moderate - High Risk Fall Score Description: Nath Fall Score of =/> 25 or indicated by [facility] Assessment Goal: Patient should be free from fall Description: Interventions: 1. [place] to environment 2. Hourly rounds addressing the [...] non-skid footwear 11. Teach patient and patient freight representative to maintain environment for safety and [...] (cane, walker) within reach 19. Request patient freight representative bring adaptive equipment/mobility aids from home or obtain and provide as needed 20. Consult pharmacy regarding effects of med's affecting mobility, cognition, and alternatives 21. Obtain physician order for PT if risk factors associated with mobility are present 22. Obtain physician order for OT as appropriate 23. Utilize diversional activities 24. Educate patient and patient freight representative how to maintain a safe environment during visitationtimes (notify nurse prior to leaving bedside) 25. Consider appropriateness of medical or non-medical territory manager 26. Set up voiding schedule as appropriate [...] Description: INTERVENTIONS: 1. Encourage patient or legal freight representative to report early pain and ask [...] per policy 9. Teach patient or legal freight representative interventions for comforting Note: Evaluation of [...] at the bedside 7. Instruct patient/ patient freight representative about use of safety devices 8. Include patient/ patient freight representative in decisions related to safety Note: [...] hygiene technique. 7. Identify and instruct patient/patient freight representative in use of appropriate isolation precautionsfor identified infection/symptoms. 8. Provide and discuss with patient/patient freight representative on educational MDRO sheet. 9. Encourage and monitor nutritional status daily and consult side stapler if indicated. 10. Implement neutropenic guidelines as needed. Note: Evaluation of progress towards goal: Wound culture pending. Iv zosyn, vanco, and flagyl administered 04/08. Problem: Knowledge Deficit Goal: Patient/patient freight representative demonstrates understanding of disease process, treatment [...] Collaborate with ancillary departments 14. Include patient/patient freight representative in decisions related to anxiety Note: [...] care 6. Collaborate with pastoral/spiritual care, social media specialist, mental health counselor as needed. 7. Instruct patient on diversional activities such as physical activity, distraction, and deep breathing exercises to assist with coping 8. Involve patient's freight representative in care Note: Evaluation of progress towards goal: Emotional support provided by RN and pts SO. documented in this encounterMer[facility] History of Present illness Narrative* George [...] DC later tonight Zain Pagan, MS3 [facility] Resident Attestation I have seen and evaluated the patient, and have also reviewed the documentation above. I have repeated and performed the chong portions of the physical exam and concur with the student's findings. I agree with the plan as noted above with any changes made as necessary. George Pisano MD Rn Correctional Resident PGY-1 04/10/24 7:50 AM If questions [...] PO antibiotics, home soon * Nicholas Osuna, [facility] - 04/09/2024 9:57 AM EST [...] Date/Time Wound culture superficial includes gram stain [[id number]] Collected: 04/08/242024 Specimen: Wound Swab Updated: 04/08/24 233 Gram Stain Result >25 WHITE BLOOD CELLS/LPF 0 SQUAMOUS EPITHELIAL CELLS/LPF FEW GRAM POSITIVE COCCI Culture PENDING Urine culture [[id number]] Collected: 04/08/24 1616 Specimen: Urine Updated: 04/08/24 1723 Blood culture [[id number]] Collected: 04/08/24 1411 Specimen: Blood Updated: 04/09/24 0229 Culture NO GROWTH <24 HRS SARS/FLU A+B/RSV by NAAT/Molecular (M4RT Collection Tube) [[id number]] Collected: 04/08/24 1403 Specimen: Nasopharynx Updated: 04/08/24 1506 FLU A PCR Negative FLU B PCR Negative RSV by PCR Negative SARS CoV 2 BY PCR Not Detected Blood culture [[id number]] Collected: 04/08/24 1343 Specimen: Blood Updated: 04/09/24 [...] you for consulting. Nicholas Osuna, PharmD, BCPS [id number] * Jaziel Crump MD - 04/09/2024 7:25 [...] MD on 04/08/2024 2:12 PM Assessment: April Nicholosn is a 28 y.o. female s/p RA [...] of care per primary. Sherri Miranda MS3 [facility] 04/09/24 7:25 AM Jaziel Crump MD PGY-3 Surgery Resident 04/09/24 7:25 AM Cosigned by Benjamin Francis MD at 04/09/2024 10:19 PM EST Associated attestation - Benjamin Francis MD - 04/09/2024 10:19 PM EST documented in this encounterMercy Health [facility] Hospital02-19-2025 Progress note* Discharge Planning Note - Trudi Patel - 04/10/2024 11:15 AM EST DISCHARGE PLANNING NOTE Referral sent to multiple facilities or agencies due to patient insurance type/difficult placement/patient is without preference. [facility] [id number] Progress note* Discharge Planning Note - Nicky Buchanan RN - 04/10/2024 10:35 AM EST DISCHARGE PLANNING NOTE Per RN during discharge transition rounds, barriers to discharge are: No barriers. [facility] referralsent for HCC. Patient states that she is not comfortable doing her own wound care. Has family that assist 4-5 times per week with wound care. Discharge Plan: Plan is home with HCC if able to find company to agree to care. Will arrange outpatient wound care if unable to find accepting HCC. Cloth Washer Operator will continue to follow for any discharge needs. - Nicky Buchanan RN 04/10/24 10:38 AM [facility] [id number] Plan of care note* Plan of Care - Effie Keene RN - 04/10/2024 8:07 AM EST Problem: Pain Goal: Patient goal is pain score less than 4, able to rest, and participant in treatment plan as appropriate Description: INTERVENTIONS: 1. Encourage patient or legal freight representative to report early pain and ask [...] per policy 9. Teach patient or legal freight representative interventions for comforting Outcome: Progressing Note: [...] at the bedside 7. Instruct patient/ patient freight representative about use of safety devices 8. Include patient/ patient freight representative in decisions related to safety Outcome: [...] hygiene technique. 7. Identify and instruct patient/patient freight representative in use of appropriate isolation precautionsfor identified infection/symptoms. 8. Provide and discuss with patient/patient freight representative on educational MDRO sheet. 9. Encourage and monitor nutritional status daily and consult side stapler if indicated. 10. Implement neutropenic guidelines as needed. Outcome: Progressing Note: Evaluation of progress towards goal: Patient afebrile, vital signs stable at this time. Continuing to monitor. Problem: Knowledge Deficit Goal: Patient/patient freight representative demonstrates understanding of disease process, treatment [...] be free from fall Description: Interventions: 1. [place] to environment 2. Hourly rounds addressing the [...] non-skid footwear 11. Teach patient and patient freight representative to maintain environment for safety and [...] (cane, walker) within reach 19. Request patient freight representative bring adaptive equipment/mobility aids from home or obtain and provide as needed 20. Consult pharmacy regarding effects of med's affecting mobility, cognition, and alternatives 21. Obtain physician order for PT if risk factors associated with mobility are present 22. Obtain physician order for OT as appropriate 23. Utilize diversional activities 24. Educate patient and patient freight representative how to maintain a safe environment during visitationtimes (notify nurse prior to leaving bedside) 25. Consider appropriateness of medical or non-medical territory manager 26. Set up voiding schedule as appropriate (every 2 hours) Outcome: Progressing Note: Evaluation of progress towards goal: Patient remains free from falls at this time. Interventions in place to help prevent falls. Continuing to monitor. Problem: Low Risk Fall Score Description: Nath Fall Score of 0 - 24 or indicated by [facility] Assessment Goal: Patient should be free from fall Description: Interventions: 1. [place] to environment 2. Hourly rounds addressing the [...] non-skid footwear 11. Teach patient and patient freight representative to maintain environment for safety and engage in all aspects of fall prevention program Outcome: Progressing Note: Evaluation of progress towards goal: Patient remains free from falls at this time. Interventions in place to help prevent falls. Continuing to monitor. [facility]02[facility] Hospital course Narrative* George Pisano MD - 04/10/2024 7:53 AM EST Inpatient Discharge Summary BRIEF OVERVIEW Admitting Provider: Primary Care Physician at Discharge: Admission Date: 04/08/2024 Discharge Date: 04/10/24 Procedures: Bedside I&D for abdominal abscess HPI: April Nicholson is a 28 y.o. female who presented to [facility] ED on 04/08/2024 with hx of abdominal [...] patient had been evaluated at [facility] and was given 1 dose [...] 200 mg given BID during inpatient stay Dunean carbonate 600 mg PO given qd during [...] Zaki Gupta 04/10/24 3rd Year Medical Student, [facility] Resident Attestation I have seen and evaluated the patient, and have also reviewed the documentation above. I have repeated and performed the chong portions of the physical exam and concur with the student's findings. I agree with the plan as noted above with any changes made as necessary. George Pisano MD Rn Correctional Resident PGY-1 04/10/24 9:39 AM Cosigned by Milad Hernandez MD at 04/10/2024 10:59 AM EST Associated attestation - Milad Hernandez MD - 04/10/2024 10:59 AM EST I was present with resident during the history and physical exam. I discussed the case with the resident and agree with the findings and plan as documented in the resident's note, unless otherwise specified. documented in this encounterMercy Health [facility]02-18-2025 Plan of care note * Plan of Care - Corby Bojorquez RN - 04/09/2024 7:31 PM EST Problem: Pain Goal: Patient goal is pain score less than 4, able to rest, and participant in treatment plan as appropriate Description: INTERVENTIONS: 1. Encourage patient or legal freight representative to report early pain and ask [...] per policy 9. Teach patient or legal freight representative interventions for comforting Outcome: Progressing Note: [...] at the bedside 7. Instruct patient/ patient freight representative about use of safety devices 8. Include patient/ patient freight representative in decisions related to safety Outcome: [...] hygiene technique. 7. Identify and instruct patient/patient freight representative in use of appropriate isolation precautionsfor identified infection/symptoms. 8. Provide and discuss with patient/patient freight representative on educational MDRO sheet. 9. Encourage and monitor nutritional status daily and consult side stapler if indicated. 10. Implement neutropenic guidelines as needed. Outcome: Progressing Note: Evaluation of progress towards goal: Standard precautions and hand hygiene used to prevent infection Problem: Knowledge Deficit Goal: Patient/patient freight representative demonstrates understanding of disease process, treatment [...] Collaborate with ancillary departments 14. Include patient/patient freight representative in decisions related to anxiety Outcome: [...] be free from fall Description: Interventions: 1. [place] to environment 2. Hourly rounds addressing the [...] non-skid footwear 11. Teach patient and patient freight representative to maintain environment for safety and [...] (cane, walker) within reach 19. Request patient freight representative bring adaptive equipment/mobility aids from home or obtain and provide as needed 20. Consult pharmacy regarding effects of med's affecting mobility, cognition, and alternatives 21. Obtain physician order for PT if risk factors associated with mobility are present 22. Obtain physician order for OT as appropriate 23. Utilize diversional activities 24. Educate patient and patient freight representative how to maintain a safe environment during visitationtimes (notify nurse prior to leaving bedside) 25. Consider appropriateness of medical or non-medical territory manager 26. Set up voiding schedule as appropriate (every 2 hours) Outcome: Progressing Note: Evaluation of progress towards goal: Interventions in cares/safety in place Problem: Skin/Tissue Integrity - Adult Goal: Incisions, wounds, or drain sites healing without S/S of infection Description: INTERVENTIONS 1. ADMISSION & EVERY SHIFT: Assess and document risk factors for pressure ulcer development utilizing the [place]/Romeo Q scale 2. Assess and document skin [...] care 6. Collaborate with pastoral/spiritual care, social media specialist, mental health counselor as needed. 7. Instruct patient on diversional activities such as physical activity, distraction, and deep breathing exercises to assist with coping 8. Involve patient's freight representative in care Outcome: Completed Note: Evaluation of progress towards goal: completed Qnekt02-18-2025 Progress note* Discharge Planning Note - Nicky Buchanan RN - 04/09/2024 2:58 PM EST DISCHARGE PLANNING NOTE Update[facility] Referrals for [place] and [facility] per patient choice sent. Waiting on reply. - Nicky Buchanan RN 04/09/24 2:59 PM Qnekt02-18-2025 Progress note* Discharge Planning Note - Nicky Buchanan RN - 04/09/2024 10:45 AM EST DISCHARGE PLANNING NOTE Fish Salter met with patient, introduced self, and explained role. Patient educated on safe discharge plan. Pt admitted 04/08/2024 with Abdominal wall cellulitis [L03.311] Sepsis ([facility]) [A41.9] Postoperative surgical complication involving genitourinary system [...] 03/25/2024 Prolonged emergence from general anesthesia Seizure ([facility]) Last one 03-11-2024 Prior to admission patient was living with family and self care. Medical equipment patient used prior to admission includes: None. Patient denies need for transportation/ food/ prescription medication assistance resources. Patient lives with minor children and boyfriend. Has support from mother. Referral sent to [facility] per patient choice- her daughter has used them before. PCP: CORINE GOLD MD Pharmacy:[facility] in [place] PCP and pharmacy confirmed with patient. CN [...] - Nicky Buchanan RN 04/09/24 10:46 AM [facility] [id number] Consult note* George Pisano MD - 04/09/2024 7:52 AM EST Gynecology Oncology Consultation Date of Admission: 04/08/2024 1:04 PM Chief Complaint : Chief Complaint Patient presents with Flu Symptoms Abdominal Pain History of Present Illness : April Nicholson is a 28 y.o. 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 She went [facility] ED yesterday and was given 1 [...] 03/25/2024 Prolonged emergence from general anesthesia Seizure ([facility]) Last one 03-11-2024 Past Surgical History: Past Surgical History: Procedure Laterality Date APPENDECTOMY SECTION CHOLE[facility]OMY [facility] LYSIS OF ADHESIONS N/A 03/28/2024 [facility] LYSIS OF ADHESIONS N/A 03/28/2024 Performed by Jesse Sultana MD at [facility]5 [place] OOPHORECTOMY/FROZEN SECTION Bilateral 03/28/2024 Performed [...] 100 mg, 10 mL, infiltration, Once, George Pisnao MD lithium carbonate tablet 600 mg, 600 [...] Physical Activity: Insufficiently Active (01/23/2024) Received from [facility] Exercise Vital Sign Days of Exercise per Week: 7 days Minutes of Exercise per Session: 10 min Stress: Stress Concern Present (01/23/2024) Received from [facility] [place] [employer] - Occupational Stress Questionnaire Feeling of Stress : Rather much Social Connections: Socially Integrated (01/23/2024) Received from [facility] Social Connection and Isolation Panel [NHANES] Frequency of Communication with Friends and Family: More than three times a week Frequency of Social Gatherings with Friends and Family: Twice a week Attends Jehovah'S Witness Services: More than 4 times per year [...] If questions or concerns, please contact via [facility] pager at [phone]. Resident Attestation I have seen and evaluated the patient, and have also reviewed the documentation above. I have repeated and performed the chong portions of the physical exam and concur with the student's findings. I agree with the plan as noted above with any changes made as necessary. George Pisano MD Rn Correctional Resident PGY-1 04/09/24 7:52 AM Cosigned by [...] Will initiate transdermal estrogen for vasomotor symptoms. [facility]02-[facility] Plan of care note* Plan of Care - Fredi Lowe RN - 04/09/2024 7:52 AM EST Problem: Pain Goal: Patient goal is pain score less than 4, able to rest, and participant in treatment plan as appropriate Description: INTERVENTIONS: 1. Encourage patient or legal freight representative to report early pain and ask [...] per policy 9. Teach patient or legal freight representative interventions for comforting Outcome: Progressing Note: [...] at the bedside 7. Instruct patient/ patient freight representative about use of safety devices 8. Include patient/ patient freight representative in decisions related to safety Outcome: [...] hygiene technique. 7. Identify and instruct patient/patient freight representative in use of appropriate isolation precautionsfor identified infection/symptoms. 8. Provide and discuss with patient/patient freight representative on educational MDRO sheet. 9. Encourage and monitor nutritional status daily and consult side stapler if indicated. 10. Implement neutropenic guidelines as needed. Outcome: Progressing Note: Evaluation of progress towards goal: on iv atb. Cont to trend labs.fevers Problem: Knowledge Deficit Goal: Patient/patient freight representative demonstrates understanding of disease process, treatment [...] Collaborate with ancillary departments 14. Include patient/patient freight representative in decisions related to anxiety Outcome: [...] care 6. Collaborate with pastoral/spiritual care, social media specialist, mental health counselor as needed. 7. Instruct patient on diversional activities such as physical activity, distraction, and deep breathing exercises to assist with coping 8. Involve patient's freight representative in care Outcome: Progressing Note: Evaluation of progress towards goal: able to voice concerns. Problem: Moderate - High Risk Fall Score Description: Nath Fall Score of =/> 25 or indicated by [facility] Assessment Goal: Patient should be free from fall Description: Interventions: 1. [place] to environment 2. Hourly rounds addressing the [...] non-skid footwear 11. Teach patient and patient freight representative to maintain environment for safety and [...] (cane, walker) within reach 19. Request patient freight representative bring adaptive equipment/mobility aids from home or obtain and provide as needed 20. Consult pharmacy regarding effects of med's affecting mobility, cognition, and alternatives 21. Obtain physician order for PT if risk factors associated with mobility are present 22. Obtain physician order for OT as appropriate 23. Utilize diversional activities 24. Educate patient and patient freight representative how to maintain a safe environment during visitationtimes (notify nurse prior to leaving bedside) 25. Consider appropriateness of medical or non-medical territory manager 26. Set up voiding schedule as appropriate (every 2 hours) Outcome: Progressing Note: Evaluation of progress towards goal: free from falls, cont to use nonskid footwear with ambulation. Pt instructed to call out when appropriate to aid with ambulation Qnekt02-18-2025 Consult note* George Pisano MD - 04/09/2024 7:52 AM EST Gynecology Oncology Consultation Date of Admission: 04/08/2024 1:04 PM Chief Complaint : Chief Complaint Patient presents with Flu Symptoms Abdominal Pain History of Present Illness : April Nicholson is a 28 y.o. 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 She went [facility] ED yesterday and was given 1 [...] 03/25/2024 Prolonged emergence from general anesthesia Seizure ([facility]) Last one 03-11-2024 Past Surgical History: Past Surgical History: Procedure Laterality Date APPENDECTOMY SECTION [facility] LYSIS OF ADHESIONS N/A 03/28/2024 Performed by Mundo Martinez MD at [facility] LYSIS OF ADHESIONS N/A 03/28/2024 Performed by Jesse Sultana MD at [facility]5 [place] OOPHORECTOMY/FROZEN SECTION Bilateral 03/28/2024 Performed [...] Physical Activity: Insufficiently Active (01/23/2024) Received from [facility] Exercise Vital Sign Days of Exercise per Week: 7 days Minutes of Exercise per Session: 10 min Stress: Stress Concern Present (01/23/2024) Received from [facility] [place] [employer] - Occupational Stress Questionnaire Feeling of Stress : Rather much Social Connections: Socially Integrated (01/23/2024) Received from [facility] Social Connection and Isolation Panel [NHANES] Frequency of Communication with Friends and Family: More than three times a week Frequency of Social Gatherings with Friends and Family: Twice a week Attends Jehovah'S Witness Services: More than 4 times per year [...] If questions or concerns, please contact via [facility] pager at [phone]. Resident Attestation I have seen and evaluated the patient, and have also reviewed the documentation above. I have repeated and performed the chong portions of the physical exam and concur with the student's findings. I agree with the plan as noted above with any changes made as necessary. George Pisano MD Rn Correctional Resident PGY-1 04/09/24 7:52 AM Cosigned by [...] 03/25/2024 Prolonged emergence from general anesthesia Seizure ([facility]) Last one 03-11-2024 Past Surgical History: Procedure Laterality Date APPENDECTOMY SECTION CHO[facility]OMY [facility] LYSIS OF ADHESIONS N/A 03/28/2024 Performed by Mundo Martinez MD at [facility] LYSIS OF ADHESIONS N/A 03/28/2024 Performed by Jesse Sultana MD at [facility] [place] OOPHORECTOMY/FROZEN SECTION Bilateral 03/28/2024 Performed [...] to allergen)., Disp: 2 each, Rfl: 1 [id number]-iiapongtf-oalxdavo (TRELEGY ELLIPTA) 200-62.5-25 mcg blister with device, [...] Resource Strain: Low Risk (01/23/2024) Received from [facility] Overall Financial Resource Strain (CARDIA) Difficulty of Paying Living Expenses: Not very hard Food Insecurity: No Food Insecurity (02/09/2024) Hunger Screening Food Insecurity - Worry: Never True Food Insecurity - Inability: Never True Transportation Needs: Unknown (01/23/2024) Received from [facility] PRAPARE - Transportation Lack of Transportation (Medical): Patient declined Lack of Transportation (Non-Medical): No Physical Activity: Insufficiently Active (01/23/2024) Received from [facility] Exercise Vital Sign Days of Exercise per Week: 7 days Minutes of Exercise per Session: 10 min Stress: Stress Concern Present (01/23/2024) Received from [facility] [place] [employer] - Occupational Stress Questionnaire Feeling of Stress : Rather much Social Connections: Socially Integrated (01/23/2024) Received from [facility] Social Connection and Isolation Panel [NHANES] Frequency of Communication with Friends and Family: More than three times a week Frequency of Social Gatherings with Friends and Family: Twice a week Attends Jehovah'S Witness Services: More than 4 times per year Active Member of Clubs or Organizations: Yes Attends Club or Organization Meetings: More than 4 times per year Marital Status: Living with partner Interpersonal Safety: Not on file Housing Instability: Low Risk (01/23/2024) Received from [facility] Housing Stability Vital Sign Unable to [...] General Surgery B 6a - 6p Pager: [phone] 6p - 6a Pager: [phone] Cosigned by Benjamin Francis MD at 04/09/2024 9:48 AM EST Associated attestation - Benjamin Francis MD - 04/09/2024 9:48 AM EST Attending attestation: I reviewed the resident's note and discussed the case with the resident. Additional findings/notes: Local wound care. Will sign-off. Benjamin Francis MD, [facility] General Surgery and Minimally Invasive Surgery [address] [place] [address], [address] [place] [address] Office: documented in this encounterMer[facility]02-18-[facility]25 Plan of care note * Plan of Care - Lo Peres RN - 04/09/2024 4:51 AM EST Problem: Pain Goal: Patient goal is pain score less than 4, able to rest, and participant in treatment plan as appropriate Description: INTERVENTIONS: 1. Encourage patient or legal freight representative to report early pain and ask [...] per policy 9. Teach patient or legal freight representative interventions for comforting Note: Evaluation of [...] at the bedside 7. Instruct patient/ patient freight representative about use of safety devices 8. Include patient/ patient freight representative in decisions related to safety Note: [...] hygiene technique. 7. Identify and instruct patient/patient freight representative in use of appropriate isolation precautionsfor identified infection/symptoms. 8. Provide and discuss with patient/patient freight representative on educational MDRO sheet. 9. Encourage and monitor nutritional status daily and consult side stapler if indicated. 10. Implement neutropenic guidelines as needed. Note: Evaluation of progress towards goal: Wound culture pending. Iv zosyn, vanco, and flagyl administered 04/08. Problem: Knowledge Deficit Goal: Patient/patient freight representative demonstrates understanding of disease process, treatment [...] Collaborate with ancillary departments 14. Include patient/patient freight representative in decisions related to anxiety Note: [...] care 6. Collaborate with pastoral/spiritual care, social media specialist, mental health counselor as needed. 7. Instruct patient on diversional activities such as physical activity, distraction, and deep breathing exercises to assist with coping 8. Involve patient's freight representative in care Note: Evaluation of progress towards goal: Emotional support provided by RN and pts SO. [facility]02[facility] Procedure note* Jaziel Crump MD - [...] I reviewed the resident's note. Additional Notes/Findings: [facility] Procedure note* Jaziel Crump MD - [...] resident's note. Additional Notes/Findings: documented in this encounterMercy Health Anderson Hospital02-17-2025 Consult note* Kinsey Toussaint MD - [...] 03/25/2024 Prolonged emergence from general anesthesia Seizure ([facility]) Last one 03-11-2024 Past Surgical History: Procedure Laterality Date APPENDECTOMY SECTION CHOLECYSTECTOMY [facility] LYSIS OF ADHESIONS N/A 03/28/2024 Performed by Mundo Martinez MD at [place] [id number] LYSIS OF ADHESIONS N/A 03/28/2024 Performed by Jesse Sultana MD at [facility] [place] OOPHORECTOMY/FROZEN SECTION Bilateral 03/28/2024 Performed [...] to allergen)., Disp: 2 each, Rfl: 1 faovxoewzre-oxkgqtqbn-rsakaihd (TRELEGY ELLIPTA) 200-62.5-25 mcg blister with device, [...] Resource Strain: Low Risk (01/23/2024) Received from [facility] Overall Financial Resource Strain (CARDIA) Difficulty of Paying Living Expenses: Not very hard Food Insecurity: No Food Insecurity (02/09/2024) Hunger Screening Food Insecurity - Worry: Never True Food Insecurity - Inability: Never True Transportation Needs: Unknown (01/23/2024) Received from [facility] PRAPARE - Transportation Lack of Transportation (Medical): Patient declined Lack of Transportation (Non-Medical): No Physical Activity: Insufficiently Active (01/23/2024) Received from [facility] Exercise Vital Sign Days of Exercise per Week: 7 days Minutes of Exercise per Session: 10 min Stress: Stress Concern Present (01/23/2024) Received from [facility] [employer] [facility] [employer] - Occupational Stress Questionnaire Feeling of Stress : Rather much Social Connections: Socially Integrated (01/23/2024) Received from [facility] Social Connection and Isolation Panel [NHANES] Frequency of Communication with Friends and Family: More than three times a week Frequency of Social Gatherings with Friends and Family: Twice a week Attends Jehovah'S Witness Services: More than 4 times per year Active Member of Clubs or Organizations: Yes Attends Club or Organization Meetings: More than 4 times per year Marital Status: Living with partner Interpersonal Safety: Not on file Housing Instability: Low Risk (01/23/2024) Received from [facility] Housing Stability Vital Sign Unable to [...] General Surgery B 6a - 6p Pager: [phone] 6p - 6a Pager: [phone] Cosigned by Benjamin Francis MD at 04/09/2024 9:48 AM EST Associated attestation - Benjamin Francis MD - 04/09/2024 9:48 AM EST Attending attestation: I reviewed the resident's note and discussed the case with the resident. Additional findings/notes: Local wound care. Will sign-off. Benjamin Francis MD, [facility] General Surgery and Minimally Invasive Surgery [address] [place] [address], [address] [place] [address] Office: [facility] Work Phone: [phone]) 591-225602-17-2025 Physician Emergency department Note* Yordy Melton, DO - 04/08/2024 1:32 PM EST Images from the original note were not included. [facility] - EMERGENCY DEPARTMENT Pt Name: [...] she was recently evaluated at [facility] yesterday and was given Keflex [...] 03/25/2024 Prolonged emergence from general anesthesia Seizure ([facility]) Last one 03-11-2024 Past Surgical History: Past Surgical History: Procedure Laterality Date APPENDECTOMY SECTION CHOLECYST[facility]OMY [facility] LYSIS OF ADHESIONS N/A 03/28/2024 Performed by Mundo Martinez MD at [facility] LYSIS OF ADHESIONS N/A 03/28/2024 Performed by Jesse Sultana MD at [facility]5 [place] OOPHORECTOMY/FROZEN SECTION Bilateral 03/28/2024 Performed [...] Physical Activity: Insufficiently Active (01/23/2024) Received from [facility] Exercise Vital Sign Days of Exercise per Week: 7 days Minutes of Exercise per Session: 10 min Stress: Stress Concern Present (01/23/2024) Received from [facility] [place] [employer] - Occupational Stress Questionnaire Feeling of Stress : Rather much Social Connections: Socially Integrated (01/23/2024) Received from [facility] Social Connection and Isolation Panel [NHANES] Frequency of Communication with Friends and Family: More than three times a week Frequency of Social Gatherings with Friends and Family: Twice a week Attends Jehovah'S Witness Services: More than 4 times per year [...] nursing note reviewed. Exam conducted with a quality systems specialist present. Constitutional: General: She is in acute [...] Given 04/08/24 1640) lidocaine-EPINEPHrine (XYLOCAINE W/EPI) 1 %-1:454521 injection 30 mL (20 mL intradermal Given [...] and physical exam, pt requires admission to Cardiology Nurse Practitioner/Onc for IV antibiotics, pain control, general surgery [...] [JR] 1322 Pain Score: 10 [JR] 1406 Cardiology Nurse Practitioner/Onc evaluating patient at bedside [JR] 1413 X-ray [...] 12 lead Sinus tachycardia, heart rate 103, MO interval 134, QRS 75, QTC 427. No [...] [facility] [...] 4:29 PM Comment Diagnosis: Abdominal wall cellulitis [257237] Attending Provider: MILAD HERNANDEZ [[id number]] Estimated length of stay?: >2 midnights/In-patient only [...] Attestation: I, Dr. Melton personally performed a krrx-yc-hveo diagnostic evaluation on this patient. I have [...] Resident 04/08/242000 Yordy Melton DO 04/09/24 0734 [facility] Work Phone: [phone] Emergency department Note* Yordy Melton DO - 04/08/2024 1:32 PM EST Images from the original note were not included. [facility] - EMERGENCY DEPARTMENT Pt Name: [...] she was recently evaluated at [facility] yesterday and was given Keflex [...] 03/25/2024 Prolonged emergence from general anesthesia Seizure ([facility]) Last one 03-11-2024 Past Surgical History: Past Surgical History: Procedure Laterality Date APPENDECTOMY SECTION CHO[facility]OMY [facility] LYSIS OF ADHESIONS N/A 03/28/2024 Performed by Mundo Martinez MD at [facility] LYSIS OF ADHESIONS N/A 03/28/2024 Performed by Jesse Sultana MD at [facility]5 [place] OOPHORECTOMY/FROZEN SECTION Bilateral 03/28/2024 Performed [...] Physical Activity: Insufficiently Active (01/23/2024) Received from [facility] Exercise Vital Sign Days of Exercise per Week: 7 days Minutes of Exercise per Session: 10 min Stress: Stress Concern Present (01/23/2024) Received from [facility] [place] [employer] - Occupational Stress Questionnaire Feeling of Stress : Rather much Social Connections: Socially Integrated (01/23/2024) Received from [facility] Social Connection and Isolation Panel [NHANES] Frequency of Communication with Friends and Family: More than three times a week Frequency of Social Gatherings with Friends and Family: Twice a week Attends Jehovah'S Witness Services: More than 4 times per year [...] nursing note reviewed. Exam conducted with a quality systems specialist present. Constitutional: General: She is in acute [...] intravenous Given 04/08/241639) lidocaine-EPINEPHrine (XYLOCAINE W/EPI) 1 %-1:198677 injection 30 mL (20 mL intradermal Given [...] and physical exam, pt requires admission to Cardiology Nurse Practitioner/Onc for IV antibiotics, pain control, general surgery [...] [JR] 1322 Pain Score: 10 [JR] 1406 Cardiology Nurse Practitioner/Onc evaluating patient at bedside [JR] 1413 X-ray [...] 12 lead Sinus tachycardia, heart rate 103, MO interval 134, QRS 75, QTC 427. No [...] [facility] [...] 4:29 PM Comment Diagnosis: Abdominal wall cellulitis [[id number]] Attending Provider: MILAD HERNANDEZ [[id number]] Estimated length of stay?: >2 midnights/In-patient only [...] Attestation: I, Dr. Melton personally performed a lijf-wn-dumc diagnostic evaluation on this patient. I have [...] requesting labs in back. documented in this encounterMercy Health [facility] Hospital02-17-2025 Emergency department Note* Tim Jeffery CNA - 04/08/2024 11:29 AM EST Pt tearful in triage, lots of recent blood draws, requesting labs in back. [facility]02-17[facility] Miscellaneous Notes* Telephone Encounter - Sofia Ku CMA - 04/08/2024 8:53 AM EST Patient called reporting persistent fever of 105 F that is not reducing with medication. She has been to the ED in [place] multiple times and has been sent home every time. She also reports pain andgreen drainage from her surgical incision. Spoke to Svetlana Ye PA-C; she recommends that patient visit [facility] ED and and wants to inform patient that our team and residents will be able to round on her there. Patient is agreeable to plan. documented in this encounterMercy Health [facility] Hospital02-17-2025 Telephone encounter Note* Telephone Encounter - Sofia Ku CMA - 04/08/2024 8:53 AM EST Patient called reporting persistent fever of 105 F that is not reducing with medication. She has been to the ED in [place] multiple times and has been sent home every time. She also reports pain andgreen drainage from her surgical incision. Spoke to Svetlana Ye PA-C; she recommends that patient visit [facility] ED and and wants to inform patient that our team and residents will be able to round on her there. Patient is agreeable to plan. [facility]02-[facility] History of Present illness Narrative* Yumiko [...] 01/24/2023 Polycystic ovaries 01/24/2023 Psychogenic nonepileptic seizure ([facility]) 01/24/2023 Class 3 severe obesity due to excess calories without serious comorbidity with body mass index (BMI) of 50.0 to 59.9 in adult ([facility]) 03/21/2023 Mild persistent asthma with (acute) exacerbation ([facility]) 10/10/2023 Fatigue 01/01/2024 Encounter for long-term (current) [...] Acute exacerbation of asthma with allergic rhinitis ([facility]) Allergies Asthma ([facility]) At low risk for fall Bipolar affective, mixed (HCC) ([facility]) Change in blood pressure Cholecystitis 2008 Depressive disorder ([facility]) OMID (generalized anxiety disorder) ([facility]) History of hysterectomy 10/01/2021 Insomnia, persistent Migraines ([facility]) Mild persistent asthma without complication ([facility]) Morbid obesity with BMI of 40.0-44.9, adult ([facility]) PCOS (polycystic ovarian syndrome) Right otitis media Seizures ([facility]) HISTORY PAST MEDICAL HISTORY SOCIAL HISTORY Past Medical History: Diagnosis Date Acute exacerbation of asthma with allergic rhinitis ([facility]) Allergies Asthma ([facility]) At low risk for fall Bipolar affective, mixed (HCC) ([facility]) Change in blood pressure high and low Cholecystitis 2008 Chronic migraine without aura without status migrainosus, not intractable ([facility]) Depressive disorder ([facility]) OMID (generalized anxiety disorder) ([facility]) History of hysterectomy 10/01/2021 Insomnia, persistent Migraines ([facility]/HCC) Mild persistent asthma without complication ([facility]) Morbid obesity with BMI of 40.0-44.9, adult ([facility]) PCOS (polycystic ovarian syndrome) Psychogenic nonepileptic seizure ([facility]) Right otitis media Seizures ([facility]) stressed induced Social History Tobacco Use Smoking [...] nursing note reviewed. Exam conducted with a quality systems specialist present. Vitals: Estimated body mass index is [...] of: Zay Blas DO documented in this encounterNortheast Regional Medical [id number] Miscellaneous Notes* Telephone Encounter - Jania Garrett CMA - 04/01/2024 11:12 AM EST Images from the original note were not included. Medication Received: Yesterday April Nicholson [facility] Gen Surg [facility] [...] see how she was feeling today. Our AGENCY SALES REPRESENTATIVE wanted to make sure that she's not having any nausea, vomiting, fever or chills. The patient didn't answer, so I left her a message. documented in this encounterMercy Health [facility] Hospital02-10-2025 Telephone encounter Note* Telephone Encounter - Jnaia Garrett CMA - 04/01/2024 11:12 AM EST Images from the original note were not included. Medication [facility]: [facility] [...] see how she was feeling today. Our AGENCY SALES REPRESENTATIVE wanted to make sure that she's not having any nausea, vomiting, fever or chills. The patient didn't answer, so I left her a message. [facility]02-10-[facility] History of Present illness Narrative* MARY [...] MARY Cintron 04/01/24 1107 documented in this encounterMercy Health Anderson Hospital02-10-2025 Miscellaneous Notes* Telephone Encounter - Samira [...] with her sick child. documented in this encounterMercy Health [facility] Hospital02-10-2025 Telephone encounter Note* Telephone Encounter - [...] pain meds also. Message to Svetlana HERNANDEZ. [facility]02-10-[facility] Telephone encounter Note* Telephone Encounter - [...] now helping her with her sick child. [facility]02-03-20[facility] Instructions* Patient Instructions* Mari Saldaña RN - 03/25/2024 2:15 PM EST Your surgery/procedure is scheduled at [facility] on 03-28-2024 at 9am Arrival Time: 7am [facility] Address: [address] [place] [address] Park in Parking lot located on [facility]. Report to the Entrance B. Check in at the information desk the surgery. The waiting room located on the second floor. If you have any questions prior to surgery, please call Pre-Admission Clinic at [phone] between 7:30 am and 4:30 pm Monday through Monday. If you have questions the morning of surgery, please call the Pre-op Department at [phone]. Notify your SURGEON if you develop any [...] piercings ,hair extensions that contain metal, nail tajik, make-up, and contact lens. You may brush [...] RIGHTS AND RESPONSIBILITIES As a patient at [facility], you have the right to: Receive medical care and be informed of who is taking care of you Be treated with dignity and respect Have a family member/freight representative of choice and your physician notified of your admission Receive information and actively participate in decisions about your care and treatment Refuse care, treatment and services Decide who may provide your support and speak for you Access roman catholic and spiritual services Participate in ethical issues [...] of hospital charges and payment methods Patient/patient freight representative responsibilities are to: Provide information about [...] surgery in clean clothes. documented in this encounterMercy Health [facility] Hospital01-30-2025 Miscellaneous Notes* Telephone Encounter - Nicky Zapata - 03/21/2024 11:47 AM EST ----- Message from Dr. Mundo Martinez MD sent at 03/21/2024 11:39 AM EST ----- Should be ok ----- Message ----- From: Nicky Zapata Sent: 03/21/2024 9:43 AM EST To: Mundo Martinez MD Pt is [facility] and getting migraine infusion Vyepti [...] of Dr. Martinez response documented in this encounterMercy Health [facility] Hospital01-30-2025 Telephone encounter Note* Telephone Encounter - Nicky Zapata - 03/21/2024 11:47 AM EST ----- Message from Dr. Mundo Martinez MD sent at 03/21/2024 11:39 AM EST ----- Should be ok ----- Message ----- From: Nicky Zapata Sent: 03/21/2024 9:43 AM EST To: Mundo Martinez MD Pt is going [facility] and getting migraine infusion Vyepti infusion for migranies, during the infusion pt will get Toradol and benadryl, patient has surgery next week and she wants to make sure this infusion is ok to take and will not delay surgery, please advise. [facility]01-30-[facility] Telephone encounter Note* Telephone Encounter - Nicky Zapata - 03/21/2024 11:47 AM EST Pt was notified of Dr. Martinez response [facility]01-30-2025 NoteHNO ID: [id number] Author: SAGAR BARTH APRN.AGENCY SALES REPRESENTATIVE Service: ? Author Type: Nurse Practitioner Type: [...] visit. Either the patient or their legal freight representative has been informed of the risks [...] XL, Qudexy) Anti-Depressant and Antipsychotic Amitriptyline (Elavil) Dunean (Eskalith, Lithobid) Nortriptyline (Pamelor, Aventyl) Anti-Migraine Dihydroergotamine [...] ZOLMitriptan (ZOMIG) 5 mg nasal sprayUse 1 [place] in the nose as needed at onset [...] capsule by mouth ann (more content not included)...[facility]01-30-2025 History of Present illness Narrative* Sagar Barth APRN.AGENCY SALES REPRESENTATIVE - 03/21/2024 8:48 AM EST Images from [...] visit. Either the patient or their legal freight representative has been informed of the risks [...] XL, Qudexy) Anti-Depressant and Antipsychotic Amitriptyline (Elavil) Dunean (Eskalith, Lithobid) Nortriptyline (Pamelor, Aventyl) Anti-Migraine Dihydroergotamine [...] ZOLMitriptan (ZOMIG) 5 mg nasal spray^Use 1 [place] in the nose as needed at onset [...] these with the patient: yes Sagar Barth APRN.AGENCY SALES REPRESENTATIVE HEADACHE SCORES: 12/05/2023 01/17/2024 03/20/2024 Headache Questions [...] spontaneous and fluent without dysarthria. Short and fci memory, cognition and general fund of knowledgeare [...] XL, Qudexy) Anti-Depressant and Antipsychotic Amitriptyline (Elavil) Dunean (Eskalith, Lithobid) Nortriptyline (Pamelor, Aventyl) Blood Pressure [...] 30 minutes Sagar Barth APRN.FADY Headache Section [facility] March 21, 2024 documented in this encounterCleveland Clinic [facility]01-29-2025 History of Present illness Narrative* Vincent [...] pulmonary with Dr. Jason at [facility]. She has been treated with [...] Asthma BV (bacterial vaginosis) Depression Migraine Seizure ([facility]) Past Surgical History: Procedure Laterality Date [...] (exposure to allergen). 06/07/22 Yes ELSIE Luke hhncehqzywx-bokpqfasz-yiceavor (TRELEGY ELLIPTA) 100-62.5-25 mcg blister with device [...] chest is warranted. Dr. Vincent Peña DO. [facility] Physicians Pulmonary & Critical Care Office: [phone] documented in this encounterMercy Health [facility] Hospital01-27-2025 History of Present illness Narrative* Mundo [...] which is why she doesn't go to [place] or [place]. She has had diarrhea for the last [...] lot of steroids. 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 Last hospitalized a couple years ago. Not [...] Asthma BV (bacterial vaginosis) Depression Migraine Seizure ([facility]) Lamictal for non-epileptiform seizure and depression/anxiety - [...] anomaly not found LOC (loss of consciousness) ([facility]) Migraine with aura and without status [...] procedures Referring and communicating with other health career development coordinator (not separately reported) Documenting clinical information in the electronic or other health record Independently interpreting results (not separately reported) and communicating results to the patient/family/caregiver Care coordination (not separately reported) Dunean and lamictal, trazodone as needed MUNDO MARTINEZ MD documented in this encounterMercy Health [facility] Hospital01-15-2025 History of Present illness Narrative* Yumiko [...] in female 12/19/2022 Mixed bipolar I disorder ([facility]) 01/24/2023 Chronic migraine without aura without status migrainosus, not intractable ([facility]) 01/24/2023 Generalized anxiety disorder ([facility]) 01/24/2023 Persistent disorder of initiating or maintaining sleep 01/24/2023 Mild persistent asthma ([facility]) 01/24/2023 Polycystic ovaries 01/24/2023 Psychogenic nonepileptic seizure ([facility]) 01/24/2023 Class 3 severe obesity due to excess calories without serious comorbidity with body mass index (BMI) of 50.0 to 59.9 in adult ([facility]) 03/21/2023 Mild persistent asthma with (acute) exacerbation ([facility]) 10/10/2023 Fatigue 01/01/2024 Encounter for long-term (current) [...] Acute exacerbation of asthma with allergic rhinitis ([facility]) Allergies Asthma ([facility]) At low risk for fall Bipolar affective, mixed ([facility]) ([facility]) Change in blood pressure Cholecystitis 2009 Depressive disorder ([facility]) OMID (generalized anxiety disorder) ([facility]) History of hysterectomy 10/01/2021 Insomnia, persistent Migraines ([facility]) Mild persistent asthma without complication ([facility]) Morbid obesity with BMI of 40.0-44.9, adult ([facility]) PCOS (polycystic ovarian syndrome) Right otitis media Seizures ([facility]) HISTORY PAST MEDICAL HISTORY SOCIAL HISTORY Past Medical History: Diagnosis Date Acute exacerbation of asthma with allergic rhinitis ([facility]) Allergies Asthma ([facility]) At low risk for fall Bipolar affective, mixed (HCC) ([facility]) Change in blood pressure high and low Cholecystitis 2008 Chronic migraine without aura without status migrainosus, not intractable ([facility]) Depressive disorder ([facility]) OMID (generalized anxiety disorder) ([facility]) History of hysterectomy 10/01/2021 Insomnia, persistent Migraines ([facility]) Mild persistent asthma without complication ([facility]) Morbid obesity with BMI of 40.0-44.9, adult ([facility]) PCOS (polycystic ovarian syndrome) Psychogenic nonepileptic seizure ([facility]) Right otitis media Seizures ([facility]) stressed induced Social History Tobacco Use Smoking [...] nursing note reviewed. Exam conducted with a quality systems specialist present. Vitals: Estimated body mass index is [...] of: Zay Blas DO documented in this encounterNortheast Regional Medical [id number] History of Present illness Narrative* Yumiko Worrell [...] in female 12/19/2022 Mixed bipolar I disorder ([facility]) 01/24/2023 Chronic migraine without aura without status migrainosus, not intractable [place] [place] 01/24/2023 Generalized anxiety disorder ([facility]) 01/24/2023 Persistent disorder of initiating or maintaining sleep 01/24/2023 Mild persistent asthma ([facility]) 01/24/2023 Polycystic ovaries 01/24/2023 Psychogenic nonepileptic seizure ([facility]) 01/24/2023 Class 3 severe obesity due to excess calories without serious comorbidity with body mass index (BMI) of 50.0 to 59.9 in adult ([facility]) 03/21/2023 Mild persistent asthma with (acute) exacerbation ([facility]) 10/10/2023 Fatigue 01/01/2024 Encounter for long-term (current) [...] Acute exacerbation of asthma with allergic rhinitis ([facility]) Allergies Asthma ([facility]) At low risk for fall Bipolar affective, mixed (HCC) ([facility]) Change in blood pressure Cholecystitis 2009 Depressive disorder [place] [place] OMID (generalized anxiety disorder) [place] [place] History of hysterectomy 10/01/2021 Insomnia, persistent Migraines (CMS/HCC) Mild persistent asthma without complication (CMS/HCC) Morbid obesity with BMI of 40.0-44.9, adult ([facility]) PCOS (polycystic ovarian syndrome) Right otitis media Seizures ([facility]) HISTORY PAST MEDICAL HISTORY SOCIAL HISTORY Past Medical History: Diagnosis Date Acute exacerbation of asthma with allergic rhinitis (CMS/HCC) Allergies Asthma (CMS/HCC) At low risk for fall Bipolar affective, mixed (HCC) ([facility]) Change in blood pressure high and low Cholecystitis 2008 Chronic migraine without aura without status migrainosus, not intractable ([facility]) Depressive disorder ([facility]) OMID (generalized anxiety disorder) ([facility]) History of hysterectomy 10/01/2021 Insomnia, persistent Migraines (CMS/HCC) Mild persistent asthma without complication ([facility]) Morbid obesity with BMI of 40.0-44.9, adult ([facility]) PCOS (polycystic ovarian syndrome) Psychogenic nonepileptic seizure ([facility]) Right otitis media Seizures ([facility]) stressed induced Social History Tobacco Use Smoking [...] nursing note reviewed. Exam conducted with a quality systems specialist present. Vitals: Estimated body mass index is [...] of: Zay Blas DO documented in this encounterNOSaint Francis Medical [id number] Telephone encounter Note* Telephone Encounter - Claudia Lemon - 02/26/2024 1:05 PM EST Pt advised [facility] [id number] Miscellaneous Notes* Telephone Encounter - Claudia Lemon - 02/26/2024 1:05 PM EST Pt advised * Telephone Encounter - Mesha Zelaya LPN - 02/26/2024 11:25 AM EST UNABLE TP ACCEPT PT * Telephone Encounter - Claudia Lemon - 02/26/2024 11:12 AM EST Patients elizabeth harmon is gma and they are both pts of DB. She wondered if she could become a cut off man here with us. And if not db she asked for dominic. Pt does know we are not accepting new patients but asked if I could send this back - was told no on Monday. documented in this encounterNortheast Regional Medical [id number] Telephone encounter Note* Telephone Encounter - Mesha Zelaya LPN - 02/26/2024 11:25 AM EST UNABLE TP ACCEPT PT [facility] [id number] Telephone encounter Note* Telephone Encounter - Claudia Lemon - 02/26/2024 11:12 AM EST Patients elizabeth harmon is gma and they are both pts of DB. She wondered if she could become a cut off man here with us. And if not db she asked for dominic. Pt does know we are not accepting new patients but asked if I could send this back - was told no on Monday. [facility] Medical [id number] Telephone encounter Note* Telephone Encounter - Jannette Castrejon, PRATIBHA - 02/22/2024 12:02 PM ESTSumderik: MARY Jordan Images from the original note were not included. Prior Authorization submitted via CoverMyMeds on 02/22/2024: Insurance: [place] Medicaid Medication: Zolmitriptan Chong Code: [email or web address] Awaiting Response [facility]01-02-2025 Miscellaneous Notes* Telephone Encounter - Jannette Castrejon RN - 02/22/2024 12:02 PM ESTSummary: MARY Zolmitriptan Images from the original note were not included. Prior Authorization submitted via CoverMyMeds on 02/22/2024: Insurance: [place] Medicaid Medication: Zolmitriptan Chong Code: [email or web address] Awaiting Response documented in this encounterCleveland [facility]12-[facility]-2024 History of Present illness Narrative* Lamont Blair MD - 02/09/2024 12:19 PM ESTAssociated Problem(s): Mild persistent asthma with (acute) exacerbation ([facility]) Recent flare but not able to take [...] and wo IV contrast documented in this encounterNortheast Regional Medical [id number] Note* Addendum Note - Sagar Barth APRN.CNP - 01/30/2024 2:59 PM ESTAddended by: SAGAR BARTH on: 01/30/2024 02:59 PM Modules accepted: Orders [facility]12-10-2024 Telephone encounter Note* Telephone Encounter - Sagar Barth APRN.CNP - 01/30/2024 2:59 PM EST The following approved medication requests have been transmitted electronically. Requested Prescriptions Signed Prescriptions Disp Refills ZOLMitriptan (ZOMIG) 5 mg nasal spray 12 Each 5 Sig: Use 1 [place] in the nose as needed at onset of migraine headache. If symptoms persist or return, may repeat dose in other nostril after 2 hours. Maximum of 2 sprays per 24 hours Authorizing Provider: SAGAR BARTH APRN.CNP [facility]12-10-2024 Miscellaneous Notes* Addendum Note - Sagar Barth APRN.CNP - 01/30/2024 2:59 PM ESTAddended by: SAGAR BARTH on: 01/30/2024 02:59 PM Modules accepted: Orders * Telephone Encounter - Sagar Barth APRN.CNP - 01/30/2024 2:59 PM EST The following approved medication requests have been transmitted electronically. Requested Prescriptions Signed Prescriptions Disp Refills ZOLMitriptan (ZOMIG) 5 mg nasal spray 12 Each 5 Sig: Use 1 [place] in the nose as needed at onset [...] Each 5 11/10/2023 -- Sig: Use 1 [place] in the nose as needed at onset [...] to verify quantity on zolmitriptan. Callback number: [phone] documented in this encounterCleveland Clinic [facility] Hospital12-10-2024 Telephone encounter Note * Telephone Encounter - Sagar Barth APRN.CNP - 01/30/2024 2:56 PM EST Dispense 12 pls. I rewrote the rx. Sagar Barth APRN.CNP [facility]12-09-2024 Telephone encounter Note* Telephone Encounter - Amy Shrestha MA - 01/29/2024 11:18 AM EST Per last Rx on 11/10/2023: Disp Refills Start End ZOLMitriptan (ZOMIG) 5 mg nasal spray 10 Each 5 11/10/2023 -- Sig: Use 1 [place] in the nose as needed at onset of migraine headache. If symptoms persist or return, may repeat dose in other nostril after 2 hours. Maximum of 2 sprays per 24 hours I called the pharmacy and hey need to know if Provider would like to dispense #6 or #12 cartridges.They do not come in 10. Please advise. Thank you [facility]12-09-2024 Telephone encounter Note* Telephone Encounter - Kelsey Patel - 01/29/2024 10:51 AM EST Name of Caller: nicky Relationship to patient: pharmacy Last visit in this department: 09/19/2023 Reason for Call: Other : need to verify quantity on zolmitriptan. Callback number: [phone] [facility]12-03-2024 History of Present illness Narrative* Lamont Blair MD - 01/23/2024 1:55 PM ESTAssociated Problem(s): SOB (shortness of breath) on exertion Severe symptom and check CXR. Use albuterol PRN and start prednisone. * Lamont Blair MD - 01/23/2024 1:55 PM ESTAssociated Problem(s): Mild persistent asthma with (acute) exacerbation ([facility]) Continued symptoms and treat with prednisone and [...] panel CBC and differential documented in this encounterNortheast Regional Medical [id number] NoteHNO ID: [id number] Author: GETACHEW DOMINGO RN Service: ? Author Type: Registered Nurse Type: Progress Notes Filed: 01/22/2024 15:58 Note Text: Pt in for third day of infusion. Pt rated headache 9/10. Pt has severe nausea and moderate dizziness. Educated pt on medications to be administered. Pt agreed to proceed as ordered. Engineering Program Analyst yes Patient reports she stopped vomiting but nausea is still pretty severe. She continues to retain fluids, hands and lower extremities appear puffy, non pitting edema. Mohamed Hamdan, AGENCY SALES REPRESENTATIVE aware, patient seen. Patient referred to pcp [...] room via wheelchair to her in the lobby.[facility]12-02-2024 History of Present illness Narrative* Getachew Domingo RN - 01/22/2024 2:18 PM EST Pt in for third day of infusion. Pt rated headache 9/10. Pt has severe nausea and moderate dizziness. Educated pt on medications to be administered. Pt agreed to proceed as ordered. Engineering Program Analyst yes Patient reports she stopped vomiting but [...] her in the lobby. documented in this encounterCleveland Clinic [facility] Hospital12-02-2024 NoteHNO ID: [id number] Author: RAIZA SHIELDS APRN.AGENCY SALES REPRESENTATIVE Service: ? Author Type: Nurse Practitioner Type: [...] ZOLMitriptan (ZOMIG) 5 mg nasal sprayUse 1 [place] in the nose as needed at onset [...] and clear, coherent, and relevant. Short and fci memory, cognition and general [...] service, which included p (more content not included)...[facility]12-02-2024 History of Present illness Narrative* Raiza Shields APRN.AGENCY SALES REPRESENTATIVE - 01/22/2024 1:30 PM EST Images from [...] ZOLMitriptan (ZOMIG) 5 mg nasal spray^Use 1 [place] in the nose as needed at onset [...] articulation, and clear,coherent, and relevant. 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 Raiza Shields APRN.FADY Headache Section [facility] January 22, 2024 documented in this encounterCleveland Clinic [facility]11-29-2024 NoteHNO ID: [id number] Author: GETACHEW DOMINGO RN Service: ? Author Type: Registered Nurse Type: Progress Notes Filed: 01/19/2024 11:55 Note Text: Pt in for second day of infusion. Pt rated headache 10/10. Pt has severe nausea and severe dizziness. Educated pt on medications to be administered. Pt agreed to proceed as ordered. Engineering Program Analyst: yes Patient took Valium 10 mg tabl [...] Pt d/c via wheelchair to her in [facility]. Instructed patient and to take caution with ambulating. Patient is feeling sedated.[facility]11-29-2024 History of Present illness Narrative* Getachew Domingo RN - 01/19/2024 9:37 AM EST Pt in for second day of infusion. Pt rated headache 10/10. Pt has severe nausea and severe dizziness. Educated pt on medications to be administered. Pt agreed to proceed as ordered. Engineering Program Analyst: yes Patient took Valium 10 mg tabl [...] Pt d/c via wheelchair to her in [facility]. Instructed patient and to take caution with ambulating. Patient is feeling sedated. documented in this encounterCleveland [facility]11-27-2024 NoteHNO ID: [id number] Author: CLAUDIA MAYNARD RN Service: ? Author [...] PRN Zofran given for nausea. Discharged to driver/sales workers via wheelchair.[facility]11-27-2024 History of Present illness Narrative* Claudia Maynard, [...] PRN Zofran given for nausea. Discharged to driver/sales workers via wheelchair. documented in this encounterCleveland Clinic [facility]11-27-2024 NoteHNO ID: [id number] Author: ОЛЬГА SHABAZZ APRN.AGENCY SALES REPRESENTATIVE Service: ? Author Type: Nurse Practitioner Type: Progress Notes Filed: 01/17/2024 07:59 Note Text: Headache Center - Virtual Visit Infusion Triage This visit was conducted as a virtual visit, with patient's permission, via ZOOM. It required patient-provider interaction for the medical decision making as documented below. Patient stated name and Patient location [place], [place] I have communicated my name and active licensure. The patient's identity and physical location were verified at the time of this visit. Either the patient or their legal freight representative has been informed of the risks [...] [place], New health events/diagnosis since last visit (RI/stroke/DM/HTN/etc): denies Cardiovascular risk factors: obesity Past infusion [...] XL, Qudexy) Anti-Depressant and Antipsychotic Amitriptyline (Elavil) Dunean (Eskalith, Lithobid) Nortriptyline (Pamelor, Aventyl) Anti-Migraine Dihydroergotamine [...] sprayUse 1 Sp (more content not included)... [facility]11-26-2024 Telephone encounter Note* Telephone Encounter - Michelle Givens RN - 01/16/2024 9:25 AM EST PAPO: 12/05/2023 with Ольга Shabazz APRN.AGENCY SALES REPRESENTATIVE [facility]11-26-2024 Miscellaneous Notes* Telephone Encounter - Michelle Givens RN - 01/16/2024 9:25 AM EST PAPO: 12/05/2023 with Ольга Shabazz APRN.AGENCY SALES REPRESENTATIVE documented in this encounterCleveland Clinic [facility] Hospital11-19-2024 History of Present illness Narrative* Lamont [...] and follow with specialists. Mild persistent asthma ([facility]) - Primary Class 3 severe obesity due to excess calories without serious comorbidity with body mass index (BMI) of 50.0 to 59.9 in adult ([facility]) Patient overweight and difficult time losing weight. [...] (Ultram) 50 MG tablet documented in this encounterNortheast Regional Medical [id number] NoteHNO ID: [id number] Author: LENNIE PALACIOS RN Service: ? Author [...] after Benadryl given. 1345 Patient discharged to driver/sales workers in wheelchair , patient sleepy but verbalizing and ambulating wheelchair used as a precaution Patient able to walk to wheelchair without difficulty.[facility]11-15-2024 History of Present illness Narrative* Lennie Palacios, [...] after Benadryl given. 1345 Patient discharged to driver/sales workers in wheelchair , patient sleepy but verbalizing and ambulating wheelchair used as a precaution Patient able to walk to wheelchair without difficulty. documented in this encounterCleveland Clinic [facility] Hospital10-15-2024 History of Present illness Narrative* Ольга Shabazz APRN.AGENCY SALES REPRESENTATIVE - 12/05/2023 7:00 AM EDT Images from the original note were not included. Headache Center - Follow up Virtual Visit Last OV: 08/23/23 Sona Barth APRN Accompanied by: Self This visit was conducted as a virtual visit, with patient's permission, via ZOOM. It required patient-provider interaction for the medical decision making as documented below. Patient stated name and Patient location [place], [place] I have communicated my name and active licensure. The patient's identity and physical location wereverified at the time of this visit. Either the patient or their legal freight representative has been informed of the risks [...] (ZOMIG) 5 mg nasal spray Use 1 [place] in the nose as needed at onset [...] these with the patient: yes Ольга Shabazz APRN.AGENCY SALES REPRESENTATIVE Studies to Review: No New Health Issues: [...] XL, Qudexy) Anti-Depressant and Antipsychotic Amitriptyline (Elavil) Dunean (Eskalith, Lithobid) Nortriptyline (Pamelor, Aventyl) Blood Pressure [...] which included preparing to see the patient, [id number] patient care, completing clinical documentation, and counseling and educating the patient/family/caregiver. Ольга Shabazz APRN.AGENCY SALES REPRESENTATIVE documented in this encounterC[facility]09-25-2024 History of Present illness Narrative* Lamont [...] 800-160 MG per tablet documented in this encounterNortheast Regional Medical CenterPhufjdsguo19-34-7422 Telephone encounter Note* Telephone Encounter - Sagar Barth APRN.CNP - 11/10/2023 2:12 PM EDT The following approved medication requests have been transmitted electronically. Requested Prescriptions Signed Prescriptions Disp Refills ZOLMitriptan (ZOMIG) 5 mg nasal spray 10 Each 5 Sig: Use 1 [place] in the nose as needed at onset [...] Authorizing Provider: SAGAR BARTH APRN.CNP [facility]09-20-2024 Miscellaneous Notes* Telephone Encounter - Sagar Barth APRN.CNP - 11/10/2023 2:12 PM EDT The following approved medication requests have been transmitted electronically. Requested Prescriptions Signed Prescriptions Disp Refills ZOLMitriptan (ZOMIG) 5 mg nasal spray 10 Each 5 Sig: Use 1 [place] in the nose as needed at onset [...] spray 10 Each 5 Sig: Use 1 [place] in the nose as needed at onset [...] for muscle spasm (migraine). documented in this encounterCleveland Clinic [facility] Hospital09-20-2024 Telephone encounter Note * Telephone Encounter - Sagar Barth APRN.CNP - 11/10/2023 2:11 PM EDT The following approved medication requests have been transmitted electronically. Requested Prescriptions Signed Prescriptions Disp Refills promethazine (PHENERGAN) 25 mg tablet 90 tablet 5 Sig: Take 1 tablet by mouth every 4 hours as needed. FOR NAUSEA Authorizing Provider: SAGAR BARTH APRN.CNP [facility]09-20-2024 Miscellaneous Notes* Telephone Encounter - Sagar [...] [facility] documented in this encounterCleveland Clinic [facility] Hospital09-20-2024 Telephone encounter Note * Telephone Encounter [...] NAUSEA Pharmacy Name: [facility]09-20-2024 Telephone encounter Note* Telephone Encounter - Michelle Givens RN - 11/10/2023 1:26 PM EDT patient requesting refill via ITaohart. Last OV: 09/19/2023 Future OV: None scheduled Last prescribed: 4 months ago (07/10/2023) by Sagar Barth APRN.AGENCY SALES REPRESENTATIVE Requested Prescriptions Pending Prescriptions Disp Refills ZOLMitriptan (ZOMIG) 5 mg nasal spray 10 Each 5 Sig: Use 1 [place] in the nose as needed at onset [...] needed for muscle spasm (migraine). [facility]08-23-2024 History of Present illness Narrative* Getachew Domingo RN - 10/13/2023 12:44 PM EDT Pt in for Vyepti infusion. Pt rated headache 8 /10. Pt has severe nausea and mild dizziness. Educated pt on medications to be administered. Pt agreed to proceed as ordered. Engineering Program Analyst: yes Zofran 8 mg IVP given for [...] Patient d/c via wheelchair.. documented in this encounterCleveland Clinic [facility] Hospital08-20-2024 History of Present illness Narrative* Lamont Blair MD - 10/10/2023 10:04 AM EDTAssociated Problem(s): Mild persistent asthma with (acute) exacerbation ([facility]) Continued symptoms and treat with prednisone and [...] Visit Mild persistent asthma with (acute) exacerbation ([facility]) Continued symptoms and treat with prednisone and [...] 800-160 MG per tablet documented in this encounterNortheast Regional Medical [id number] History of Present illness Narrative* Sagar Barth APRN.AGENCY SALES REPRESENTATIVE - 09/19/2023 2:30 PM EDT Images from [...] XL, Qudexy) Anti-Depressant and Antipsychotic Amitriptyline (Elavil) Dunean (Eskalith, Lithobid) Nortriptyline (Pamelor, Aventyl) Anti-Migraine Dihydroergotamine [...] ZOLMitriptan (ZOMIG) 5 mg nasal spray^Use 1 [place] in the nose as needed at onset [...] these with the patient: yes Sagar Barth APRN.AGENCY SALES REPRESENTATIVE HEADACHE SCORES: 03/22/2023 07/10/2023 09/19/2023 Headache Questions [...] spontaneous and fluent without dysarthria. 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 Sagar Barth APRN.[facility] Headache Section [facility] September 19, 2023 documented in this encounterCleveland Clinic [facility]06-28-2024 Instructions* Patient Instructions* Curtis Lepe PA-C - 08/18/2023 2:39 PM EDT You received a greater occipital nerve block (GONB) today You may feel sore tomorrow at the site of the injection. You may use heat or ice for discomfort andgentle stretching. This should resolve in 24-36 hours. Greater Occipital Nerve Block (GONB) Article in [employer] Journal By: Molina Barraza MD Many patients with chronic headache report that their pain typically arises from the neck or, more specifically, the base of the skull. Often that pain arises on one side or the other and extends forward to involve the top of the head, the episcopal, the forehead, the eye or some combination [...] give it at least one more try. https://americanheadachesociety.org/wp-content/uploads//Kjzpvekrc-Lrlua-D locks_Jun-2009.pdf documented in this encounterCleveland Clinic [facility] Hospital06-28-2024 History of Present illness Narrative* Curtis [...] Curtis Lepe PA-C Headache Section [facility] August 18, 2023 documented in this encounterCleveland Clinic [facility] Hospital06-26-2024 Telephone encounter Note * Telephone Encounter - Michelle Givens RN - 08/16/2023 9:18 AM EDT Forwarded to provider for review. PAPO: 07/10/2023 Future OV: 09/19/2023 Encounter from [facility] today 08/16/2023 [facility]06-26-2024 Miscellaneous Notes* Telephone Encounter - Michelle Givens RN - 08/16/2023 9:18 AM EDT Forwarded to provider for review. PAPO: 07/10/2023 Future OV: 09/19/2023 Encounter from [facility] today 08/16/2023 documented in this encounterC[facility] History of Present illness Narrative* Sagar Barth APRN.AGENCY SALES REPRESENTATIVE - 07/10/2023 11:30 AM EDT Images from [...] visit. Either the patient or their legal freight representative has been informed of the risks [...] XL, Qudexy) Anti-Depressant and Antipsychotic Amitriptyline (Elavil) Dunean (Eskalith, Lithobid) Nortriptyline (Pamelor, Aventyl) Anti-Migraine Dihydroergotamine [...] ZOLMitriptan (ZOMIG) 5 mg nasal spray^Use 1 [place] in the nose as needed at onset [...] these with the patient: yes Sagar Barth APRN.AGENCY SALES REPRESENTATIVE HEADACHE SCORES: 12/12/2022 03/22/2023 07/10/2023 Headache Questions [...] spontaneous and fluent without dysarthria. 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 States she was seen this morning at [facility] and given a Compazine and steroid shot States she cannot remember the name of steroid that was given. Informationpassed on to care team. Marc TOMAS RN Clinical Upholsterer Apprentice [facility] Neuro Headache [facility]05-06-2024 Miscellaneous Notes* Telephone Encounter - Kings Saez RN - 06/26/2023 3:00 PM EDT Called Pt to clarify ER visit. States she was seen this morning at [facility] and given a Compazine and steroid shot States she cannot remember the name of steroid that was given. Informationpassed on to care team. Marc TOMAS RN Clinical Upholsterer Apprentice [facility] Neuro Headache [facility] documented in this encounterCleveland Clinic [facility]05-06-2024 Telephone encounter Note * Telephone Encounter - Michelle Givens RN - 06/26/2023 11:42 AM EDT Forwarded to provider for review. PAPO: 04/14/2023 with Suzan Ivey APRN.AGENCY SALES REPRESENTATIVE Future OV: None scheduled [facility]05-06-[facility]24 Miscellaneous Notes* Telephone Encounter - Michelle Givens RN - 06/26/2023 11:42 AM EDT Forwarded to provider for review. PAPO: 04/14/2023 with Suzan Ivey APRN.AGENCY SALES REPRESENTATIVE Future OV: None scheduled * Telephone Encounter - Michelle Givens RN - 06/26/2023 10:01 AM EDT MyChart message sent to patient to gain more information in regards to patient's migraine. documented in this encounterCleveland Clinic [facility]05-06-2024 Telephone encounter Note * Telephone Encounter - Michelle Givens RN - 06/26/2023 10:01 AM EDT MyChart message sent to patient to gain more information in regards to patient's migraine. [facility]02-23-[facility] Instructions* Patient Instructions* Suzan Ivey APRN.AGENCY SALES REPRESENTATIVE - 04/14/2023 10:49 AM EST Follow up/ [...] medication refilled without delays. documented in this encounterCleveland Clinic [facility] Hospital02-23-2024 History of Present illness Narrative* Suzan [...] Level: 4/10 Hysterectomy for contraceptive Has a driver/sales workers Current Preventative: recently prescribed aimovig Current Abortive: [...] ZOLMitriptan (ZOMIG) 5 mg nasal spray^Use 1 [place] in the nose as needed at onset [...] articulation, and clear,coherent, and relevant. 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 Suzan Ivey APRN.AGENCY SALES REPRESENTATIVE Headache Section [facility] documented in this encounterC[facility] Clinic [facility]02-23-2024 History of Present illness Narrative* Vielka Nair RN - 04/14/2023 8:19 AM EST Pt in for 3rd day of infusion. Pt rated headache 6/10. Pt has severe nausea and moderate dizziness.Educated pt on medications to be administered. Pt agreed to proceed as ordered. Patient has driver/sales workers today. @0915: Patient tearful and c/o PIV site burning and very painful. No infiltration or redness of site noted, Ice-pack placed over PIV site. After a few minutes pt reported the ice-pack did not help and wanted PIV to be removed. PIV site removed. Patient remained very anxious and tearful, and requesting if anything else can be given for anxiety. [facility] DEWATERER OPERATOR notified. New PIV site started, 2nd doseof Benadryl given for anxiety. 2nd line: Compazine given for severe nausea. Per [facility] DEWATERER OPERATOR to hold Periactin today as the two doses of Benadryl and Compazine can cause drowsiness. Pts infusion complete, tolerated infusion. Headache 4/10. Pt stated no nausea and moderate dizziness. PIV site removed. Pt discharged from txt room at 1124 via wheelchair to ride in [facility]. documented in this encounterC[facility]02-22-2024 History of Present illness Narrative* Getachew [...] She is working with a psychiatrist in [place] . Voiced stress isher biggest trigger for headaches. 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 I mentioned to patient our reboot program . Patient very interested to learn about it. Message sendto our quarantine officer and Rhina Lim to set up patient for evaluation. 1020 Patient sleeping on and off. Nausea subsiding. Patient declined Zofran. Stated Zofran ineffective. 1050 Infusion complete. Patient slept on and off. Nausea resolved. PINEDA 6/10. Patient verbal , appears sedated . D/c via wheel chair to her in [facility]. documented in this encounterCleveland Clinic [facility] Hospital02-22-2024 Miscellaneous Notes* Telephone Encounter - Getachew Domingo RN - 04/13/2023 9:28 AM EST Patient is currently receiving infusions for headache. She is interested in learning about reboot program. Please schedule for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 Intractable chronic migraine without aura and with status migrainosus- Primary Chronic migraine without aura, with intractable migraine, so stated, with status migrainosus documented [facility] this encounter [facility]* Diagnosis Chronic migraine [...] with status migrainosus [facility] Diagnosis Chronic migraine w/o aura, not intractable, w/o stat migr Cervicalgia Migraine without aura and without status migrainosus, not intractable Migraine without aura, without mention of intractable migraine without mention of status migrainosus documented [facility] this [facility]* Diagnosis Intractable chronic [...] migrainosus documented in this encounter [facility]* Diagnosis Intractable chronic migraine without aura and without status migrainosus- Primary Chronic migraine without aura, with intractable migraine, so stated, without mention of status migrainosus documented in this encounter [facility]* Diagnosis Intractable chronic migraine without aura and without status migrainosus- Primary Chronic migraine without aura, with intractable migraine, so stated, without mention of status migrainosus documented in this encounter [facility]* Diagnosis Acute [...] (CMS/HCC) Pain, dental [facility]* Diagnosis Chronic migraine without aura, with intractable migraine, so stated, with status migrainosus- Primary Intractable chronic migraine without aura and with status migrainosus Chronic migraine without aura, with intractable migraine, so stated, with status migrainosus documented [facility] encounter [facility]* Diagnosis Chronic migraine without aura, with intractable migraine, so stated, with status migrainosus- Primary Intractable chronic migraine without aura and with status migrainosus Chronic migraine without aura, with intractable migraine, so stated, with status migrainosus documented in this encounter [facility]* Diagnosis Acute right flank pain- Primary Mild persistent asthma without complication (CMS/HCC) Morbid obesity (CMS/HCC) Morbid obesity Body mass index [BMI] 45.0-49.9, adult (Z68.42) Acute bronchitis due to other specified organisms- Primary Mild persistent asthma with (acute) exacerbation ([facility]) Acute bronchitis due to other specified organisms- Primary Mixed bipolar I disorder ([facility]) Bipolar I disorder, most recent episode (or current) mixed, unspecified Mild persistent asthma without complication ([facility])- Primary Class 3 severe obesity due to excess calories without serious comorbidity with body mass index (BMI) of 50.0 to 59.9 in adult ([facility]) Fatigue, unspecified type Mixed bipolar I disorder ([facility]) Bipolar I disorder, most recent episode (or current) mixed, unspecified Chronic migraine without aura without status migrainosus, not intractable ([facility]) Pain, dental Pain, dental [facility]* Diagnosis Chronic migraine without aura, with intractable migraine, so stated, with status migrainosus- Primary documented in this encounter [facility]* Diagnosis Chronic migraine without aura, with intractable migraine, so stated, with status migrainosus- Primary Intractable chronic migraine without aura and with status migrainosus Chronic migraine without aura, with intractable migraine, so stated, with status migrainosus documented in this encounter [facility]* Diagnosis Acute right flank pain- Primary Mild persistent asthma without complication ([facility]) Morbid obesity ([facility]) Morbid obesity Body mass index [BMI] 45.0-49.9, adult (Z68.42) Acute bronchitis due to other specified organisms- Primary Mild persistent asthma with (acute) exacerbation ([facility]) Acute bronchitis due to other specified organisms- Primary Mixed bipolar I disorder ([facility]) Bipolar I disorder, most recent episode (or current) mixed, unspecified Mild persistent asthma without complication ([facility])- Primary Class 3 severe obesity due to excess calories without serious comorbidity with body mass index (BMI) of 50.0 to 59.9 in adult ([facility]) Fatigue, unspecified type Mixed bipolar I disorder ([facility]) Bipolar I disorder, most recent episode (or current) mixed, unspecified Chronic migraine without aura without status migrainosus, not intractable ([facility]) Pain, dental Mild persistent asthma with (acute) exacerbation ([facility])- Primary Generalized edema Edema SOB (shortness of breath) on exertion Shortness of breath [facility] Diagnosis Acute right flank pain- Primary Mild persistent asthma without complication ([facility]) Morbid obesity ([facility]) Morbid obesity Body mass index [BMI] 45.0-49.9, adult (Z68.42) Acute bronchitis due to other specified organisms- Primary Mild persistent asthma with (acute) exacerbation ([facility]) Acute bronchitis due to other specified organisms- Primary Mixed bipolar I disorder ([facility]) Bipolar I disorder, most recent episode (or current) mixed, unspecified Mild persistent asthma without complication ([facility])- Primary Class 3 severe obesity due to excess calories without serious comorbidity with body mass index (BMI) of 50.0 to 59.9 in adult ([facility]) Fatigue, unspecified type Mixed bipolar I disorder ([facility]) Bipolar I disorder, most recent episode (or current) mixed, unspecified Chronic migraine without aura without status migrainosus, not intractable ([facility]) Pain, dental Mild persistent asthma with (acute) exacerbation ([facility])- Primary Generalized edema Edema SOB (shortness of breath) on exertion Shortness of breath COVID-19 [facility]* Diagnosis Severe persistent asthma without complication ([facility]) [facility]* Diagnosis Acute bronchitis due to other specified organisms- Primary Mild persistent asthma with (acute) exacerbation ([facility]) [facility]* Diagnosis Acute bronchitis due to other specified organisms- Primary Mixed bipolar I disorder ([facility]) Bipolar I disorder, most recent episode (or current) mixed, unspecified [facility]* Diagnosis Acute right flank pain- Primary Mild persistent asthma without complication ([facility]) Morbid obesity ([facility]) Morbid obesity Body mass index [BMI] 45.0-49.9, adult (Z68.42) Acute bronchitis due to other specified organisms- Primary Mild persistent asthma with (acute) exacerbation ([facility]) Acute bronchitis due to other specified organisms- Primary Mixed bipolar I disorder ([facility]) Bipolar I disorder, most recent episode (or current) mixed, unspecified Mild persistent asthma without complication ([facility])- Primary Class 3 severe obesity due to excess calories without serious comorbidity with body mass index (BMI) of 50.0 to 59.9 in adult ([facility]) Fatigue, unspecified type Mixed bipolar I disorder ([facility]) Bipolar I disorder, most recent episode (or current) mixed, unspecified Chronic migraine without aura without status migrainosus, not intractable ([facility]) Pain, dental Mild persistent asthma with (acute) exacerbation ([facility])- Primary Generalized edema Edema SOB (shortness of breath) on exertion Shortness of breath Generalized abdominal pain- Primary Abdominal pain, generalized Intractable nausea and vomiting Mild persistent asthma with (acute) exacerbation ([facility]) documented [facility] this [facility]* Diagnosis Acute right flank pain- Primary Mild persistent asthma without complication ([facility]) Morbid obesity ([facility]) Morbid obesity Body mass index [BMI] 45.0-49.9, adult (Z68.42) Acute bronchitis due to other specified organisms- Primary Mild persistent asthma with (acute) exacerbation ([facility]) Acute bronchitis due to other specified organisms- Primary Mixed bipolar I disorder ([facility]) Bipolar I disorder, most recent episode (or current) mixed, unspecified Mild persistent asthma without complication ([facility])- Primary Class 3 severe obesity due to excess calories without serious comorbidity with body mass index (BMI) of 50.0 to 59.9 in adult ([facility]) Fatigue, unspecified type Mixed bipolar I disorder ([facility]) Bipolar I disorder, most recent episode (or current) mixed, unspecified Chronic migraine without aura without status migrainosus, not intractable ([facility]) Pain, dental Mild persistent asthma with (acute) exacerbation ([facility])- Primary Generalized edema Edema SOB (shortness of breath) on exertion Shortness of breath Generalized abdominal pain- Primary Abdominal pain, generalized Intractable nausea and vomiting Mild persistent asthma with (acute) exacerbation ([facility]) Pelvic pain in female Unspecified symptom associated with female genital organs Complex ovarian cyst [facility]* Diagnosis Acute right flank pain- Primary Mild persistent asthma without complication ([facility]) Morbid obesity ([facility]) Morbid obesity Body mass index [BMI] 45.0-49.9, adult (Z68.42) Acute bronchitis due to other specified organisms- Primary Mild persistent asthma with (acute) exacerbation ([facility]) Acute bronchitis due to other specified organisms- Primary Mixed bipolar I disorder ([facility]) Bipolar I disorder, most recent episode (or current) mixed, unspecified Mild persistent asthma without complication ([facility])- Primary Class 3 severe obesity due to excess calories without serious comorbidity with body mass index (BMI) of 50.0 to 59.9 in adult ([facility]) Fatigue, unspecified type Mixed bipolar I disorder ([facility]) Bipolar I disorder, most recent episode (or current) mixed, unspecified Chronic migraine without aura without status migrainosus, not intractable ([facility]) Pain, dental Mild persistent asthma with (acute) exacerbation ([facility])- Primary Generalized edema Edema SOB (shortness of breath) on exertion Shortness of breath Generalized abdominal pain- Primary Abdominal pain, generalized Intractable nausea and vomiting Mild persistent asthma with (acute) exacerbation ([facility]) Cyst of right ovary Other and unspecified ovarian cyst Pelvic pain in female Unspecified symptom associated with female genital organs Pelvic peritoneal adhesions, female Pelvic peritoneal adhesions, female (postoperative) (postinfection) [facility] Diagnosis Bilateral ovarian cysts- Primary Other and unspecified ovarian cyst Preop testing Unspecified pre-operative examination [facility] Diagnosis Bilateral ovarian cysts- Primary Other and unspecified ovarian cyst Moderate asthma with acute exacerbation, unspecified whether persistent Encounter for preoperative pulmonary examination [facility] Diagnosis Acute cough [R05.1]- Primary [facility]* Diagnosis Intractable chronic migraine without aura and without status migrainosus- Primary Chronic migraine without aura, with intractable migraine, so stated, without mention of status migrainosus [facility] Diagnosis Asthma, unspecified asthma severity, unspecified whether complicated, unspecified whether persistent- Primary Bilateral ovarian cysts Other and unspecified ovarian cyst Moderate asthma with acute exacerbation, unspecified whether persistent Encounter for preoperative pulmonary examination Pulmonary nodule Other diseases of lung, not elsewhere classified Gastroesophageal reflux disease, unspecified whether esophagitis present documented [facility]* Diagnosis Cyst of right ovary- Primary Other and unspecified ovarian cyst [facility]* Diagnosis Preop testing- Primary Unspecified pre-operative examination Bilateral ovarian cysts Other and unspecified ovarian cyst [facility]* Diagnosis S/P bilateral salpingo-oophorectomy Acquired absence of organ, genital organs documented [facility]* Diagnosis Post-op pain- Primary Other acute postoperative pain [facility]* Diagnosis Acute right flank pain- Primary Mild persistent asthma without complication (CMS/HCC) Morbid obesity ([facility]) Morbid obesity Body mass index [BMI] [...] (BMI) of 50.0 to 59.9 in adult ([facility]) Fatigue, unspecified type Mixed bipolar I disorder ([facility]) Bipolar I disorder, most recent episode (or current) mixed, unspecified Chronic migraine without aura without status migrainosus, not intractable ([facility]) Pain, dental Mild persistent asthma with (acute) exacerbation ([facility]/HCC)- Primary Generalized edema Edema SOB (shortness of breath) on exertion Shortness of breath Generalized abdominal pain- Primary Abdominal pain, generalized Intractable nausea and vomiting Mild persistent asthma with (acute) exacerbation ([facility]CC) Visit for wound check Yeast infection [facility] Diagnosis Abdominal wall cellulitis- Primary Postoperative surgical complication involving genitourinary system associated with genitourinary procedure, unspecified complication Postoperative surgical complication involving genitourinary system associated with genitourinary procedure [facility] Diagnosis Acute right flank pain- Primary Mild persistent asthma without complication (CMS/HCC) Morbid obesity ([facility]) Morbid obesity Body mass index [BMI] 45.0-49.9, adult (Z68.42) Acute bronchitis due to other specified organisms- Primary Mild persistent asthma with (acute) exacerbation (CMS/HCC) Acute bronchitis due to other specified organisms- Primary Mixed bipolar I disorder (CMS/HCC) Bipolar I disorder, most recent episode (or current) mixed, unspecified Mild persistent asthma without complication ([facility])- Primary Class 3 severe obesity due to excess calories without serious comorbidity with body mass index (BMI) of 50.0 to 59.9 in adult ([facility]) Fatigue, unspecified type Mixed bipolar I disorder ([facility]) Bipolar I disorder, most recent episode (or current) mixed, unspecified Chronic migraine without aura without status migrainosus, not intractable ([facility]) Pain, dental Mild persistent asthma with (acute) exacerbation ([facility])- Primary Generalized edema Edema SOB (shortness of breath) on exertion Shortness of breath Generalized abdominal pain- Primary Abdominal pain, generalized Intractable nausea and vomiting Mild persistent asthma with (acute) exacerbation ([facility]) Well woman exam with routine gynecological exam Routine gynecological examination [facility] Postoperative surgical complication involving genitourinary system associated with genitourinary procedure, unspecified complication- Primary Post-op pain Other acute postoperative pain Sweating profusely Generalized hyperhidrosis Menopausal symptoms Symptomatic menopausal or female climacteric states Nausea and vomiting, unspecified vomiting type [facility] Diagnosis Post-operative pain- Primary Other acute postoperative pain [facility] Diagnosis Muscle spasm- Primary Spasm of muscle Fatigue due to depression Nausea and vomiting, unspecified vomiting type Mild persistent asthma without status asthmaticus without complication Psychogenic nonepileptic seizure [facility] Diagnosis Postoperative surgical complication involving genitourinary system associated with genitourinary procedure, unspecified complication [facility] Diagnosis Postoperative surgical complication involving genitourinary system associated with genitourinary procedure, unspecified complication [facility]* Diagnosis Moderate persistent asthma, unspecified whether complicated [facility] Diagnosis Postoperative infection, unspecified type, subsequent encounter- Primary [facility]* Diagnosis Chronic migraine without aura, [...] migrainosus [facility] Diagnosis Intractable chronic migraine without aura and with status migrainosus- Primary Chronic migraine without aura, with intractable migraine, so stated, with status migrainosus Nausea Nausea alone Generalized anxiety disorder documented in this encounter [facility]* Diagnosis S/P bilateral salpingo-oophorectomy- Primary Acquired absence of organ, genital organs Menopausal symptoms Symptomatic menopausal or female climacteric states documented [facility]* Diagnosis Moderate persistent asthma with acute exacerbation- Primary Acute pansinusitis, recurrence not specified Antibiotic-induced yeast infection documented in [facility]* Diagnosis Moderate persistent asthma, unspecified whether complicated documented [facility]* Diagnosis Intractable chronic migraine without aura and without status migrainosus Chronic migraine without aura, with intractable migraine, so stated, without mention of status migrainosus [facility] Diagnosis Weight loss- Primary Loss of weight Moderate persistent asthma with acute exacerbation Seasonal allergic rhinitis, unspecified trigger documented [facility]* Diagnosis Seasonal allergic rhinitis, unspecified trigger documented [facility]* Diagnosis Family history of genetic disorder- Primary Family history of other condition [facility] Diagnosis Acute right flank pain- [...] Dyspareunia in female [facility] Diagnosis Status migrainosus- Primary Variants of [...] migrainosus [facility]* Diagnosis Eye infection, bilateral- Primary Ingrown nail of great toe documented [facility]* Diagnosis Intractable chronic migraine without aura and without status migrainosus- Primary Chronic migraine without aura, with intractable migraine, so stated, without mention of status migrainosus [facility] Diagnosis Chronic migraine without aura, with intractable migraine, so stated, with status migrainosus- Primary Intractable chronic migraine without aura and with status migrainosus Chronic migraine without aura, with intractable migraine, so stated, with status migrainosus [facility]* Diagnosis Intractable chronic migraine without aura and with status migrainosus- Primary Chronic migraine without aura, with intractable migraine, so stated, with status migrainosus Status migrainosus Variants of migraine, not elsewhere classified, without mention of intractable migraine without mention of status migrainosus [facility]* Diagnosis Family history of genetic disorder- Primary Family history of other condition [facility] Diagnosis Allergic reaction, sequela- Primary [facility]* Diagnosis Intractable chronic migraine without aura and without status migrainosus- Primary Chronic migraine without aura, with intractable migraine, so stated, without mention of status migrainosus [facility] Diagnosis Acute right flank pain- Primary Mild persistent asthma without complication (HCC) Morbid obesity ([facility]) Morbid obesity Body mass index [BMI] [...] (BMI) of 50.0 to 59.9 in adult ([facility]) Fatigue, unspecified type Mixed bipolar I disorder [...] vomiting Mild persistent asthma with (acute) exacerbation ([facility]) Hot flashes due to surgical menopause [facility] Diagnosis Moderate persistent asthma, unspecified whether complicated [facility] Diagnosis Muscle spasm Spasm of muscle [facility]* Diagnosis Left otitis media, unspecified otitis media type- Primary Mild asthma with exacerbation, unspecified whether persistent [facility]* Diagnosis Moderate asthma with acute exacerbation, unspecified whether persistent [facility]* Diagnosis JUAN DAVID (obstructive sleep apnea)- Primary Obstructive sleep apnea (adult) (pediatric) [facility]* Diagnosis Moderate persistent asthma without complication- Primary Gastroesophageal reflux disease without esophagitis Esophageal reflux Environmental allergies Other allergy, other than to medicinal agents [facility]* Diagnosis Moderate persistent asthma without [...] sent through Care Everywhere. * Ingrown toenail (Beninese) [facility]Not on file documented in this encounter[facility] SystemInstructionsNot on file documented in this encounterPro[facility] SystemInstructionsNot on file documented in this encounterPro[facility] SystemInstructions* Attachments The following attachments cannot be sent through Care Everywhere. * Olopatadine (Ophthalmic) (Beninese) documented in this encounterPro[facility] SystemReason for referral (narrative)* Outpatient Procedure (Routine) - Pending ReviewSpecialtyDiagnoses / ProceduresReferred By ContactReferred To [facility]NEUROLOGICAL INSTITUTE Diagnoses Seizure-like activity (HCC) Procedures EPIL EEG LEAD PLACEMENT EEG EXTENDED MONITORING 61-119 MINUTES ELECTROENCEPHALOGRAM REC COMA/SLEEP ONLY Geri Madera APRN.AGENCY SALES REPRESENTATIVE [address] [place] [address] [place] [address] Referral IDStatusMarlipershing memorial hospitalStnolan DateExpiration DateVisits RequestedVisits [id number] Review Auto-Generated Referral / [facility] for referral (narrative)* Outpatient Procedure (Routine) - Pending ReviewSpecialtyDiagnoses / ProceduresReferred By ContactReferred To [facility] Diagnoses Psychogenic nonepileptic seizure Spells of trembling Procedures EPIL AMBULATORY EEG EEG COMPLETE STD PHYS/QHP&GT;84 HR W/O Tyrone Diaz MD, PhD [id number] [place] [address] Referral IDStatusReasonStart DateExpiration DateVisits RequestedVisits [id number] Review Auto-Generated Referral * Outpatient Procedure (Routine) - Pending ReviewSpecialtyDiagnoses / Procedures Referred By ContactReferred To [facility] Diagnoses Psychogenic nonepileptic seizure Spells of trembling Procedures EPIL AMBULATORY EEG EEG COMPLETE STD PHYS/QHP&GT;84 HR W/O Tyrone Diaz MD, PhD [id number] [place] [address] Referral IDStatusReasonStart DateExpiration DateVisits RequestedVisits [id number] Review Auto-Generated Referral / * Consult, Test, Treat (Routine) - AuthorizedSpecialtyDiagnoses / Procedures Referred By ContactReferred To Contact Diagnoses Chronic intractable headache, unspecified headache type Procedures CONSULT TO HEADACHE CLINIC OFFICE/OUTPATIENT NEW HIGH MDM 60-74 MINUTES Tyrone Dolan MD, PhD [address] [place] [address] Referral IDStatusReasonStart DateExpiration DateVisits RequestedVisits [id number] PCP Requested Referral / [facility] for referral (narrative)* Outpatient Procedure (Routine) - Pending ReviewSpecialtyDiagnoses / ProceduresReferred By ContactReferred [facility] Diagnoses Seizure-like activity (HCC) Procedures EPIL EEG ROUTINE ELECTROENCEPHALOGRAM REC COMA/SLEEP ONLY Nelly Saldaña PA-C [address] [place] [address] Neu[facility] [place] [place] [address] Referral IDStatusReasonStnolan DateExpiration DateVisits RequestedVisits [id number] Review Auto-Generated Referral [facility] for referral (narrative)* Misc (Routine) - Pending Review SpecialtyDiagnoses / ProceduresReferred By ContactReferred To Contact Procedures Discharge Follow-Up George Michelle MD [address] [facility], [address] [place] [address] Phone: tel: fax: Referral IDStatusReasonStart DateExpiration DateVisits RequestedVisits [id number] Review * Misc (Routine) - Pending ReviewSpecialtyDiagnoses / ProceduresReferred By ContactReferred To Contact Procedures Hygiene George Michelle MD [address] [address] Phone: tel: fax: Referral IDStatusMarliasonStart DateExpiration DateVisits RequestedVisits [id number] Review [facility] Advance Directives TypeDate RecordedPatient RepresentativeExplanationACP-Advance DirectiveACP-Power [...] push over 2-5 minutes. Given07/28/2022 8:23 AM BZE413 mg magnesium sulfate 1 g in D5W [...] and Hematology/Oncology 4) Eclampsia or Preeclampsia New Bag/Syringe/Vstpys8907/28/2022 9:08 AM EDT1 g100 mL/hr methocarbamol iv infusion 1,000 mg in NaCl 0.9% 100 mL (ROBAXIN) 1,000 mg, INTRAVENOUS, Administer over 30 Minutes, ONCE, 1 dose, On Meg 07/28/22 at 0800, Administer IV while in recumbent position. Maintain position for at least 10-15 minutes following infusion. New Bag/Syringe/Ghaumn4707/28/2022 8:32 AM EDT1,000 mg promethazine 25 mg [...] push over 2-5 minutes. Given11/11/2022 8:45 AM PUM444 mg magnesium sulfate 1 g in D5W [...] and Hematology/Oncology 4) Eclampsia or Preeclampsia New Bag/Syringe/Tedzxt6111/11/2022 9:21 AM EDT1 g100 mL/hr methocarbamol iv infusion 1,000 mg in NaCl 0.9% 100 mL (ROBAXIN) 1,000 mg, INTRAVENOUS, Administer over 30 Minutes, ONCE, 1 dose, On Mon11/11/22 at 0830, AdministerIV while in recumbent position. Maintain position for at least 10-15 minutes following infusion. New Bag/Syringe/Ahobwc0311/11/2022 8:50 AM EDT1,000 mg NaCl 0.9% 500 mL iv bolus 500 mL, INTRAVENOUS, at 999 mL/hr, Administer over 0.5 Hours, ONCE, 1 dose, On Mon11/11/22 at 0830 New Bag/Syringe/Waptfc2711/11/2022 8:40 AM ODW608 mL999 mL/hr ondansetron (PF) 8 mg injection [...] By ContactReferred To Contact Jesse Borrego MD [address] [place] [address] Referral IDStatusReasonStart DateExpiration DateVisits RequestedVisits [id number] / ProceduresReferred By Contact Referred To Contact Diagnoses Intractable chronic migraine without aura and with status migrainosus Intractable chronic migraine without aura and without status migrainosus Procedures PROVIDER ORDERED FOLLOW UP OFFICE/OUTPATIENT [facility] 60 MINUTES Suzan Ivey APRN.AGENCY SALES REPRESENTATIVE [id number] Referral IDStatusReasonStart DateExpiration DateVisits RequestedVisits [id number] PCP Requested Referral /[id number] / ProceduresReferred By ContactReferred To Contact Diagnoses Intractable chronic migraine without aura and without status migrainosus Procedures PROVIDER ORDERED FOLLOW UP OFFICE/OUTPATIENT [facility] 60 MINUTES Sagar Barth APRN.AGENCY SALES REPRESENTATIVE [address] [place] [address] Referral IDStatusReasonStart DateExpiration DateVisits RequestedVisits [id number] PCP Requested Referral /[id number] / ProceduresReferred By ContactReferred To Contact Sagar Barth APRN.AGENCY SALES REPRESENTATIVE [address] [phone] Referral IDStatusReasonStart DateExpiration DateVisits RequestedVisits [id number] / Procedures Referred By ContactReferred To ContactPsychology Diagnoses Psychogenic nonepileptic seizure Procedures CONSULT TO PSYCHOLOGY OFFICE/OUTPATIENT [facility] [place] 60 MINUTES Curtis Lepe PA-C [address] [place] [address] Referral IDStatusReasonStart DateExpiration DateVisits RequestedVisits [id number] Review PCP Requested Referral / Additional Source Comments Source Comments (unrecognize d section and content) In the event this informatio n is protected by the Federal Confidentiality of Alcohol and Drug Abuse Patient Records regulations: The Federal rules restrict any use of the information to criminally investigate or prosecute any alcohol or drug abuse patient.[facility] the event this information is protected by the Federal Confidentiality of Alcohol and Drug Abuse Patient Records regulations: The Federal rules restrict any use of the information to criminally investigate or prosecute any alcohol or drug abuse patient.[facility] HospitalIn the event this information is protected by the Federal Confidentiality of Alcohol and Drug Abuse Patient Records regulations: The Federal rules restrict any use of the information to criminally investigate or prosecute any alcohol or drug abuse patient.[facility] HospitalIn the event this information is protected by the Federal Confidentiality of Alcohol and Drug Abuse Patient Records regulations: The Federal rules restrict any use of the information to criminally investigate or prosecute any alcohol or drug abuse patient.[facility] HospitalIn the event this information is protected by the Federal Confidentiality of Alcohol and Drug Abuse Patient Records regulations: The Federal rules restrict any use of the information to criminally investigate or prosecute any alcohol or drug abuse patient.[facility] HospitalIn the event this information is protected by the Federal Confidentiality of Alcohol and Drug Abuse Patient Records regulations: The Federal rules restrict any use of the information to criminally investigate or prosecute any alcohol or drug abuse patient.[facility] HospitalIn the event this information is protected by the Federal Confidentiality of Alcohol and Drug Abuse Patient Records regulations: The Federal rules restrict any use of the information to criminally investigate or prosecute any alcohol or drug abuse patient.[facility] HospitalIn the event this information is protected by the Federal Confidentiality of Alcohol and Drug Abuse Patient Records regulations: The Federal rules restrict any use of the information to criminally investigate or prosecute any alcohol or drug abuse patient.[facility] HospitalIn the event this information is protected by the Federal Confidentiality of Alcohol and Drug Abuse Patient Records regulations: The Federal rules restrict any use of the information to criminally investigate or prosecute any alcohol or drug abuse patient.[facility] HospitalIn the event this information is protected by the Federal Confidentiality of Alcohol and Drug Abuse Patient Records regulations: The Federal rules restrict any use of the information to criminally investigate or prosecute any alcohol or drug abuse patient.[facility] Hospital[facility] the event this information is protected by the Federal Confidentiality of Alcohol and Drug Abuse Patient Records regulations: The Federal rules restrict any use of the information to criminally investigate or prosecute any alcohol or drug abuse patient.[facility] HospitalIn the event this information is protected by the Federal Confidentiality of Alcohol and Drug Abuse Patient Records regulations: The Federal rules restrict any use of the information to criminally investigate or prosecute any alcohol or drug abuse patient.[facility] HospitalIn the event this information is protected by the Federal Confidentiality of Alcohol and Drug Abuse Patient Records regulations: The Federal rules restrict any use of the information to criminally investigate or prosecute any alcohol or drug abuse patient.[facility] HospitalIn the event this information is protected by the Federal Confidentiality of Alcohol and Drug Abuse Patient Records regulations: The Federal rules restrict any use of the information to criminally investigate or prosecute any alcohol or drug abuse patient.[facility] HospitalIn the event this information is protected by the Federal Confidentiality of Alcohol and Drug Abuse Patient Records regulations: The Federal rules restrict any use of the information to criminally investigate or prosecute any alcohol or drug abuse patient.[facility] HospitalIn the event this information is protected by the Federal Confidentiality of Alcohol and Drug Abuse Patient Records regulations: The Federal rules restrict any use of the information to criminally investigate or prosecute any alcohol or drug abuse patient.[facility] HospitalIn the event this information is protected by the Federal Confidentiality of Alcohol and Drug Abuse Patient Records regulations: The Federal rules restrict any use of the information to criminally investigate or prosecute any alcohol or drug abuse patient.[facility] HospitalIn the event this information is protected by the Federal Confidentiality of Alcohol and Drug Abuse Patient Records regulations: The Federal rules restrict any use of the information to criminally investigate or prosecute any alcohol or drug abuse patient.[facility] HospitalIn the event this information is protected by the Federal Confidentiality of Alcohol and Drug Abuse Patient Records regulations: The Federal rules restrict any use of the information to criminally investigate or prosecute any alcohol or drug abuse patient.[facility] HospitalIn the event this information is protected by the Federal Confidentiality of Alcohol and Drug Abuse Patient Records regulations: The Federal rules restrict any use of the information to criminally investigate or prosecute any alcohol or drug abuse patient.[facility] HospitalIn the event this information is protected by the Federal Confidentiality of Alcohol and Drug Abuse Patient Records regulations: The Federal rules restrict any use of the information to criminally investigate or prosecute any alcohol or drug abuse patient.[facility] HospitalIn the event this information is protected by the Federal Confidentiality of Alcohol and Drug Abuse Patient Records regulations: The Federal rules restrict any use of the information to criminally investigate or prosecute any alcohol or drug abuse patient.[facility] HospitalIn the event this information is protected by the Federal Confidentiality of Alcohol and Drug Abuse Patient Records regulations: The Federal rules restrict any use of the information to criminally investigate or prosecute any alcohol or drug abuse patient.[facility] HospitalIn the event this information is protected by the Federal Confidentiality of Alcohol and Drug Abuse Patient Records regulations: The Federal rules restrict any use of the information to criminally investigate or prosecute any alcohol or drug abuse patient.[facility] HospitalIn the event this information is protected by the Federal Confidentiality of Alcohol and Drug Abuse Patient Records regulations: The Federal rules restrict any use of the information to criminally investigate or prosecute any alcohol or drug abuse patient.[facility] HospitalIn the event this information is protected by the Federal Confidentiality of Alcohol and Drug Abuse Patient Records regulations: The Federal rules restrict any use of the information to criminally investigate or prosecute any alcohol or drug abuse patient.[facility] HospitalIn the event this information is protected by the Federal Confidentiality of Alcohol and Drug Abuse Patient Records regulations: The Federal rules restrict any use of the information to criminally investigate or prosecute any alcohol or drug abuse patient.[facility] HospitalIn the event this information is protected by the Federal Confidentiality of Alcohol and Drug Abuse Patient Records regulations: The Federal rules restrict any use of the information to criminally investigate or prosecute any alcohol or drug abuse patient.[facility] HospitalIn the event this information is protected by the Federal Confidentiality of Alcohol and Drug Abuse Patient Records regulations: The Federal rules restrict any use of the information to criminally investigate or prosecute any alcohol or drug abuse patient.[facility] HospitalIn the event this information is protected by the Federal Confidentiality of Alcohol and Drug Abuse Patient Records regulations: The Federal rules restrict any use of the information to criminally investigate or prosecute any alcohol or drug abuse patient.[facility] HospitalIn the event this information is protected by the Federal Confidentiality of Alcohol and Drug Abuse Patient Records regulations: The Federal rules restrict any use of the information to criminally investigate or prosecute any alcohol or drug abuse patient.[facility] HospitalIn the event this information is protected by the Federal Confidentiality of Alcohol and Drug Abuse Patient Records regulations: The Federal rules restrict any use of the information to criminally investigate or prosecute any alcohol or drug abuse patient.[facility] HospitalIn the event this information is protected by the Federal Confidentiality of Alcohol and Drug Abuse Patient Records regulations: The Federal rules restrict any use of the information to criminally investigate or prosecute any alcohol or drug abuse patient.[facility] HospitalIn the event this information is protected by the Federal Confidentiality of Alcohol and Drug Abuse Patient Records regulations: The Federal rules restrict any use of the information to criminally investigate or prosecute any alcohol or drug abuse patient.[facility] HospitalIn the event this information is protected by the Federal Confidentiality of Alcohol and Drug Abuse Patient Records regulations: The Federal rules restrict any use of the information to criminally investigate or prosecute any alcohol or drug abuse patient.[facility] HospitalIn the event this information is protected by the Federal Confidentiality of Alcohol and Drug Abuse Patient Records regulations: The Federal rules restrict any use of the information to criminally investigate or prosecute any alcohol or drug abuse patient.[facility] HospitalIn the event this information is protected by the Federal Confidentiality of Alcohol and Drug Abuse Patient Records regulations: The Federal rules restrict any use of the information to criminally investigate or prosecute any alcohol or drug abuse patient.[facility] HospitalIn the event this information is protected by the Federal Confidentiality of Alcohol and Drug Abuse Patient Records regulations: The Federal rules restrict any use of the information to criminally investigate or prosecute any alcohol or drug abuse patient.[facility] HospitalIn the event this information is protected by the Federal Confidentiality of Alcohol and Drug Abuse Patient Records regulations: The Federal rules restrict any use of the information to criminally investigate or prosecute any alcohol or drug abuse patient.[facility] HospitalIn the event this information is protected by the Federal Confidentiality of Alcohol and Drug Abuse Patient Records regulations: The Federal rules restrict any use of the information to criminally investigate or prosecute any alcohol or drug abuse patient.[facility] HospitalIn the event this information is protected by the Federal Confidentiality of Alcohol and Drug Abuse Patient Records regulations: The Federal rules restrict any use of the information to criminally investigate or prosecute any alcohol or drug abuse patient.[facility] HospitalIn the event this information is protected by the Federal Confidentiality of Alcohol and Drug Abuse Patient Records regulations: The Federal rules restrict any use of the information to criminally investigate or prosecute any alcohol or drug abuse patient.[facility] HospitalIn the event this information is protected by the Federal Confidentiality of Alcohol and Drug Abuse Patient Records regulations: The Federal rules restrict any use of the information to criminally investigate or prosecute any alcohol or drug abuse patient.[facility] HospitalIn the event this information is protected by the Federal Confidentiality of Alcohol and Drug Abuse Patient Records regulations: The Federal rules restrict any use of the information to criminally investigate or prosecute any alcohol or drug abuse patient.[facility] HospitalIn the event this information is protected by the Federal Confidentiality of Alcohol and Drug Abuse Patient Records regulations: The Federal rules restrict any use of the information to criminally investigate or prosecute any alcohol or drug abuse patient.[facility] HospitalIn the event this information is protected by the Federal Confidentiality of Alcohol and Drug Abuse Patient Records regulations: The Federal rules restrict any use of the information to criminally investigate or prosecute any alcohol or drug abuse patient.[facility] HospitalIn the event this information is protected by the Federal Confidentiality of Alcohol and Drug Abuse Patient Records regulations: The Federal rules restrict any use of the information to criminally investigate or prosecute any alcohol or drug abuse patient.[facility] HospitalIn the event this information is protected by the Federal Confidentiality of Alcohol and Drug Abuse Patient Records regulations: The Federal rules restrict any use of the information to criminally investigate or prosecute any alcohol or drug abuse patient.[facility] HospitalIn the event this information is protected by the Federal Confidentiality of Alcohol and Drug Abuse Patient Records regulations: The Federal rules restrict any use of the information to criminally investigate or prosecute any alcohol or drug abuse patient.[facility] HospitalIn the event this information is protected by the Federal Confidentiality of Alcohol and Drug Abuse Patient Records regulations: The Federal rules restrict any use of the information to criminally investigate or prosecute any alcohol or drug abuse patient.[facility] HospitalIn the event this information is protected by the Federal Confidentiality of Alcohol and Drug Abuse Patient Records regulations: The Federal rules restrict any use of the information to criminally investigate or prosecute any alcohol or drug abuse patient.[facility] HospitalIn the event this information is protected by the Federal Confidentiality of Alcohol and Drug Abuse Patient Records regulations: The Federal rules restrict any use of the information to criminally investigate or prosecute any alcohol or drug abuse patient.[facility] HospitalIn the event this information is protected by the Federal Confidentiality of Alcohol and Drug Abuse Patient Records regulations: The Federal rules restrict any use of the information to criminally investigate or prosecute any alcohol or drug abuse patient.[facility] HospitalIn the event this information is protected by the Federal Confidentiality of Alcohol and Drug Abuse Patient Records regulations: The Federal rules restrict any use of the information to criminally investigate or prosecute any alcohol or drug abuse patient.[facility] HospitalIn the event this information is protected by the Federal Confidentiality of Alcohol and Drug Abuse Patient Records regulations: The Federal rules restrict any use of the information to criminally investigate or prosecute any alcohol or drug abuse patient.[facility] HospitalIn the event this information is protected by the Federal Confidentiality of Alcohol and Drug Abuse Patient Records regulations: The Federal rules restrict any use of the information to criminally investigate or prosecute any alcohol or drug abuse patient.[facility] HospitalIn the event this information is protected by the Federal Confidentiality of Alcohol and Drug Abuse Patient Records regulations: The Federal rules restrict any use of the information to criminally investigate or prosecute any alcohol or drug abuse patient.[facility] HospitalIn the event this information is protected by the Federal Confidentiality of Alcohol and Drug Abuse Patient Records regulations: The Federal rules restrict any use of the information to criminally investigate or prosecute any alcohol or drug abuse patient.[facility] HospitalIn the event this information is protected by the Federal Confidentiality of Alcohol and Drug Abuse Patient Records regulations: The Federal rules restrict any use of the information to criminally investigate or prosecute any alcohol or drug abuse patient.[facility] HospitalIn the event this information is protected by the Federal Confidentiality of Alcohol and Drug Abuse Patient Records regulations: The Federal rules restrict any use of the information to criminally investigate or prosecute any alcohol or drug abuse patient.[facility] HospitalIn the event this information is protected by the Federal Confidentiality of Alcohol and Drug Abuse Patient Records regulations: The Federal rules restrict any use of the information to criminally investigate or prosecute any alcohol or drug abuse patient.[facility] HospitalIn the event this information is protected by the Federal Confidentiality of Alcohol and Drug Abuse Patient Records regulations: The Federal rules restrict any use of the information to criminally investigate or prosecute any alcohol or drug abuse patient.[facility] HospitalIn the event this information is protected by the Federal Confidentiality of Alcohol and Drug Abuse Patient Records regulations: The Federal rules restrict any use of the information to criminally investigate or prosecute any alcohol or drug abuse patient.[facility] HospitalIn the event this information is protected by the Federal Confidentiality of Alcohol and Drug Abuse Patient Records regulations: The Federal rules restrict any use of the information to criminally investigate or prosecute any alcohol or drug abuse patient.[facility] HospitalIn the event this information is protected by the Federal Confidentiality of Alcohol and Drug Abuse Patient Records regulations: The Federal rules restrict any use of the information to criminally investigate or prosecute any alcohol or drug abuse patient.[facility] HospitalIn the event this information is protected by the Federal Confidentiality of Alcohol and Drug Abuse Patient Records regulations: The Federal rules restrict any use of the information to criminally investigate or prosecute any alcohol or drug abuse patient.[facility] HospitalIn the event this information is protected by the Federal Confidentiality of Alcohol and Drug Abuse Patient Records regulations: The Federal rules restrict any use of the information to criminally investigate or prosecute any alcohol or drug abuse patient.[facility] HospitalIn the event this information is protected by the Federal Confidentiality of Alcohol and Drug Abuse Patient Records regulations: The Federal rules restrict any use of the information to criminally investigate or prosecute any alcohol or drug abuse patient.[facility] HospitalIn the event this information is protected by the Federal Confidentiality of Alcohol and Drug Abuse Patient Records regulations: The Federal rules restrict any use of the information to criminally investigate or prosecute any alcohol or drug abuse patient.[facility] HospitalIn the event this information is protected by the Federal Confidentiality of Alcohol and Drug Abuse Patient Records regulations: The Federal rules restrict any use of the information to criminally investigate or prosecute any alcohol or drug abuse patient.[facility] Reason for Visit (unrecogniz ed section and content) ReasonCommentsHeadacheSpecialtyDiagnoses / ProceduresReferred By ContactReferred To Contact Diagnoses Intractable chronic migraine without aura and without status migrainosus Procedures INJECTION, EPTINEZUMAB-JJMR, 1 MG Sagar Barth, UMANG.AGENCY SALES REPRESENTATIVE [address] [place] [address] Phone: tel: fax: Neurology [address] [place], [place] Phone: tel: fax: Referral IDStatusReasonStart DateExpiration DateVisits RequestedVisits [id number]/31/20248/[id number]kcgyjn SpecialtyDiagnoses / ProceduresReferred By ContactReferred To Contact Diagnoses Intractable chronic migraine without aura and without status migrainosus Procedures INJECTION, EPTINEZUMAB-JJMR, 1 MG Sagar Barth, COUNTER CHECKER.AGENCY SALES REPRESENTATIVE [address] [place] [address] Phone: tel: fax: Neurology [address] [place] [id number] Phone: tel: fax: ReasonCommentsInfusionHeadacheSpecialtyDiagnoses / ProceduresReferred By Contact Referred To ContactNeurology / HEADACHE Diagnoses NON-DHE #1 Procedures INFUSION HEADACHE Suzan Ivey APRN.AGENCY SALES REPRESENTATIVE [address] [place] [address] Neur Headache Main S[address] [place] [id number] Referral IDStatusReasonStart DateExpiration DateVisits RequestedVisits [id number]/21/202412/31/[id number] SpecialtyDiagnoses / ProceduresReferred By ContactReferred To Contact Diagnoses Intractable chronic migraine without aura and without status migrainosus Procedures PROVIDER ORDERED FOLLOW UP OFFICE/OUTPATIENT [facility] [place] 60 MINUTES Sagar Barth APRN.AGENCY SALES REPRESENTATIVE [address] [place] [address] Referral IDStatusReasonStart DateExpiration DateVisits RequestedVisits [id number] PCP Requested Referral [id number] / ProceduresReferred By ContactReferred To Contact Diagnoses Intractable chronic migraine without aura and without status migrainosus Procedures INJECTION, EPTINEZUMAB-JJMR, 1 MG Sagar Barth, UMANG.AGENCY SALES REPRESENTATIVE [address] [place] [address] Neur Headache Main [address] [place] [address] Referral IDStatusReasonStart DateExpiration DateVisits RequestedVisits [id number]/31/20241/141105XckvdeBhmbshqfVpjta Block SpecialtyDiagnoses / ProceduresReferred By ContactReferred To ContactNeurology / HEADACHE Diagnoses NON-DHE #1 Procedures INFUSION HEADACHE Suzan Ivey APRN.AGENCY SALES REPRESENTATIVE [address] [place] [address] Neur Headache Main [address] [place] [address] ReasonCommentsFuture AppointmentNew [place], [place], AnyReasonCommentsMigraineseen at [place] yesterday for Migrane and D & C for miscarrageReasonCommentsNew Patient ReasonCommentsOrdersReasonCommentsSeizuresFollow UpReasonCommentsMigrainex 2 week lasts up to 4 days light sensitivity, sees silver dots looks like stars. Goes into convulsions during migraines. No meds for migraines has ever worked. ReasonCommentsAppointmentinfusionSpecialtyDiagnoses / ProceduresReferred By ContactReferred To ContactNeurology / HEADACHE Diagnoses DHE Procedures INFUSION HEADACHE Abdifatah Brady MD [address] [place] [address] Neur Headache Main [address] [place] [address] Referral IDStatusReasonStart DateExpiration DateVisits RequestedVisits [id number]/8/20238/[id number] MigraineReason CommentsChronic MigraineReasonCommentsInsurance AuthorizationZomig 5MG nasal sprayReasonCommentsInfusionSpecialtyDiagnoses / ProceduresReferred By Contact Referred To ContactNeurology / HEADACHE Diagnoses POSSIBLE DHE/WAITING FOR ORDERS Procedures INFUSION HEADACHE Self Neur Headache Main [address] [place] [address] Referral IDStatusReasonStart DateExpiration DateVisits RequestedVisits [id number]/21/202312/[id number] DateCommentsRefill Xksyzvi9312/09/2022ReasonOnset DateCommentsRefill Fcephoy9412/13/2022ReasonComments InfusionHEADACHE INFUSIONSReasonCommentsInsurance AuthorizationAimovig 70MG/ML auto-injectorsReasonCommentsAppointmentPatient currently receiving infusions for headache. She is interested in learning about reboot program. Please schedule patient for evaluation if appropriate to proceed.ReasonCommentsMigraineReason CommentsMigraineSpecialtyDiagnoses / ProceduresReferred By ContactReferred To ContactNeurology / HEADACHE Diagnoses Chronic migraine without aura, intractable, without status migrainosus Migraines Nerve Block Procedures INJECTION AA&/STRD GREATER OCCIPITAL NERVE NERVE BLOCK Sagar Barth, UMANG.AGENCY SALES REPRESENTATIVE [address] [place] [address] Tyrone Dolan MD, PhD [address] [facility] [address] [place] [address] Referral IDStatusReasonStart DateExpiration DateVisits RequestedVisits [id number]/8/202412/[id number] DateCommentsRefill Jzbvofl2611/10/2023SpecialtyDiagnoses / ProceduresReferred By ContactReferred To Contact Diagnoses Intractable chronic migraine without aura and without status migrainosus Procedures INJECTION, EPTINEZUMAB-JJMR, 1 MG Sagar Barth, COUNTER CHECKER.AGENCY SALES REPRESENTATIVE [address] [place] [address] Neur Headache Main S[address] [place] [address] ReasonCommentsFatigueDizzy, shaky, very tired, can't stay awake. [...] for preoperative pulmonary examination Mundo Martinez MD [address] [place] [address] Phone: tel: fax: Jefry Hills MD [address], [address] [address] Phone: tel: fax: Referral IDStatusReasonStart DateExpiration DateVisits RequestedVisits [id number] Review Specialty Services Required [id number] CheckReasonCommentsFlu SymptomsAbdominal PainSpecialtyDiagnoses / ProceduresReferred By ContactReferred To Contact Diagnoses Sepsis ([facility]) Abdominal wall cellulitis [facility] - Emergency Department [address] [facility] [place] [address] Phone: tel: fax: Referral IDStatusReasonStart DateExpiration DateVisits RequestedVisits [id number] Women VisitReasonCommentsPost-op2 week post-opReasonCommentsEstablish CareReasonCommentsMigraineChronic MigraineReason CommentsInsurance AuthorizationubrelvyReasonCommentsFollow-upReasonCommentssinus infectionReasonOnset DateCommentsMed Zvqfum5305/24/2024ReasonOnset DateComments Refill Vkbolfo0205/31/2024ReasonCommentsFatigueReasonCommentsMed Change Request ReasonCommentsVaginitis/Bacterial VaginosisReasonCommentsInfusionHeadache infusion schedulingReasonCommentsEye PainSpecialtyDiagnoses / ProceduresReferred By ContactReferred To ContactNeurology / HEADACHE Diagnoses NON-DHE INFUSION Procedures DEHYDROERGOTAMINE INJECTION INFUSION HEADACHE [facility] [address] [place] [address] Phone: tel:59 Neurology [address] [place] [address] Phone: tel: fax: Referral IDStatusReasonStart DateExpiration DateVisits RequestedVisits [id number]/13/202512/[id number] AuthorizationZavzpret 10MG/ACT solutionZavzpret 10MG/ACT solutionReasonOnset DateCommentsGenetic Testing Prior Authorization Wgrzflo1306/25/2024ReasonComments Discuss HormonesReasonCommentsNasal CongestionReasonCommentsAnnual ExamObesity ReasonOnset DateCommentsSleep Lab12/12/2024omp [...] c section) * 0834 (Given - Provider: Clemnetine Cm RN) acetaminophen (TYLENOL) tablet 650 mg [...] needed per OBGYN) lidocaine-EPINEPHrine (XYLOCAINE W/EPI) 1 %-1:499722 injection 30 mL (COMPLETED) 30 mL, intradermal, [...] * 1525 (Given - Provider: Lamar Carrington [facility]) iohexoL (OMNIPAQUE) 300 mg iodine/mL 30 mL [...] RN) * 0203 (Given - Provider: Lo Perse, RN) * 0704 (Given - Provider: Lo [...] section and content) DATE CREATED AUTHOR 12/26/2020 [facility] DATE CREATED AUTHOR AUTHOR'S ORGANIZ ATION 10/25/2021 [facility] DATE CREATED AUTHOR AUTHOR'S ORGANIZ ATION 05/26/2022 [facility] DATE CREATED AUTHOR AUTHOR'S ORGANIZ ATION 08/02/2022 [facility] DATE CREATED AUTHOR AUTHOR'S ORGANIZ ATION 07/20/2024 [facility] DATE CREATED AUTHOR AUTHOR'S ORGANIZ ATION 09/07/2024 [facility] DATE CREATED AUTHOR AUTHOR'S ORGANIZ ATION 12/08/2024 [facility] DATE CREATED AUTHOR AUTHOR'S ORGANIZ ATION 12/18/2024 [facility] Ordered Prescriptions (unrec ognized section and content) PrescriptionSigDispensedRefillsStart DateEnd Date lamoTRIgine (LAMICTAL) 25 MG tablet Take 2 tablets by mouth daily 30 tablet Care Teams (unrecognized sec tion and content) Team MemberRelationshipSpecialtyStart DateEnd Date Derik Weber, COUNTER CHECKER - AGENCY SALES REPRESENTATIVE [address] [place] [place] [address] PCP - GeneralNurse Jlrhgaaewtyr67/4/21Team MemberRelationshipSpecialtyStart Date End Date Abdifatah Brady (Historical) [...] Blair MD [address] [place] [address] PCP - GeneralFamily Medicine03/14/23Team MemberRelationshipSpecialtyStart DateEnd Date Abdifatah Brady (Historical) PCP - General05/21/13Team MemberRelationshipSpecialtyStart DateEnd Date Lamont Blair MD [address] [place] [address] PCP - GeneralFamily Medicine03/14/23Team MemberRelationshipSpecialtyStart DateEnd Date Lamont Blair MD [address] [place] [address] PCP - GeneralFamily Medicine03/14/23Team MemberRelationshipSpecialtyStart DateEnd Date Abdifatah Brady (Historical) PCP - General05/21/13Team MemberRelationshipSpecialtyStart DateEnd Date Abdifatah Brady (Historical) PCP - General05/21/13Team MemberRelationshipSpecialtyStart DateEnd Date Lamont Blair MD [address] [place] [address] PCP - GeneralFamily Medicine03/14/23Team MemberRelationshipSpecialtyStart DateEnd Date Jose Antonio Abdifatah Lynn (Historical) PCP - General05/21/13Team MemberRelationshipSpecialtyStart DateEnd Date Lamont Blair MD [address] [place] [address] PCP - GeneralFamily Medicine03/14/23Team MemberRelationshipSpecialtyStart DateEnd Date Lamont Blair MD [address] [place] [address] PCP - GeneralFamily Medicine03/14/23Team MemberRelationshipSpecialtyStart DateEnd Date Lamont Blair MD [address] [place] [address] PCP - GeneralFamily Medicine03/14/23Team MemberRelationshipSpecialtyStart DateEnd Date Lamont Blair MD [address] [place] [address] PCP - GeneralFamily Medicine03/14/23Team MemberRelationshipSpecialtyStart DateEnd Date Lamont Blair MD [address] [place] [address] PCP - GeneralFamily Medicine03/14/23Team MemberRelationshipSpecialtyStart DateEnd Date Lamont Blair MD [address] [place] [address] PCP - GeneralFamily Medicine03/14/23Team MemberRelationshipSpecialtyStart DateEnd Date Lamont Blair MD [address] [place] [address] PCP - GeneralFamily Medicine03/14/23Team MemberRelationshipSpecialtyStart DateEnd Date Lamont Blair MD [address] [place] [address] PCP - GeneralFamily Medicine03/14/23Team MemberRelationshipSpecialtyStart DateEnd Date Lamont Blair MD [address] [place] [address] PCP - GeneralFamily Medicine03/14/23Team MemberRelationshipSpecialtyStart DateEnd Date Lamont Blair MD [address] [place] [address] PCP - GeneralFamily Medicine03/14/23Team MemberRelationshipSpecialtyStart DateEnd Date Lamont Blair MD [address] [place] [address] PCP - GeneralFamily Medicine03/14/23Team MemberRelationshipSpecialtyStart DateEnd Date Lamont Blair MD [address] [place] [address] PCP - GeneralFamily Medicine03/14/23Team MemberRelationshipSpecialtyStart DateEnd Date Lamont Blair MD [address] [place] [address] PCP - GeneralFamily Medicine03/14/23Team MemberRelationshipSpecialtyStart DateEnd Date Lamont Blair MD [address] [place] [address] PCP - GeneralFamily Medicine03/14/23Team MemberRelationshipSpecialtyStart DateEnd Date [...] Corine Gold MD [address] [facility] [place] [address] PCP - GeneralInternal Medicine03/25/24Team MemberRelationshipSpecialtyStart Date End Date Corine Gold MD [address], [place] [address] PCP - GeneralInternal Medicine03/25/24Team MemberRelationshipSpecialtyStart Date End Date Corine Gold MD [address], [place] [address] PCP - GeneralUnited [facility]03/25/24Team MemberRelationshipSpecialtyStart Date End Date Corine Gold MD [address] [place] [address] PCP - GeneralInternal Medicine03/25/24Team MemberRelationshipSpecialtyStart Date End Date Lamont Blair MD [facility] [place] [address] [place] [address] PCP - GeneralFamily Medicine03/14/23Team MemberRelationshipSpecialtyStart DateEnd Date Corine Gold MD [address] [place] [address] PCP - GeneralInternal Medicine03/25/24Team MemberRelationshipSpecialtyStart Date End Date Lamont Blair MD [address] [place] [phone] PCP - [facility] Medicine03/14/23am MemberRelationshipSpecialtyStart DateEnd Date Lamont Blair MD [address] [place] [address] PCP - [facility]03/14/23am MemberRelationshipSpecialtyStart DateEnd Date Corine Gold MD [address], [place] [address] [facility]03/25/24 MemberRelationshipSpecialtyStart Date End Date Corine Gold MD [address], [place] [address] [facility]03/25/24am MemberRelationshipSpecialtyStart Date End Date Corine Gold MD [address] [place] [address] [facility]03/25/24am MemberRelationshipSpecialtyStart Date End Date Corine Gold MD [address] [place] [address] [facility]03/25/24Team MemberRelationshipSpecialtyStart Date End Date Corine Gold MD [address] [place] [address] PCP - GeneralInternal Medicine03/25/24am MemberRelationshipSpecialtyStart Date End Date Corine Gold MD [address], [place] [address] PCP - GeneralInternal Medicine03/25/24am MemberRelationshipSpecialtyStart Date End Date Corine Gold MD [address], [place] [address] PCP - GeneralUnited [facility] Medicine03/25/24 MemberRelationshipSpecialtyStart Date End Date Corine Gold MD [address], [place] [address] PCP - [facility]03/25/24 MemberRelationshipSpecialtyStart Date End Date Corine Gold MD [address], [place] [address] PCP - GeneralUnited [facility] Medicine03/25/24am MemberRelationshipSpecialtyStart Date End Date Corine Gold MD [address], [address] [address] PCP - GeneralInternal Medicine03/25/24am MemberRelationshipSpecialtyStart Date End Date Corine Gold MD [address], [place] [address] PCP - GeneralInternal Medicine03/25/24Team MemberRelationshipSpecialtyStart Date End Date Abdifatah Brady (Historical) PCP - General05/21/13Team MemberRelationshipSpecialtyStart DateEnd Date Corine Gold MD [address] [place] [address] PCP - GeneralInternal Medicine03/25/24Team MemberRelationshipSpecialtyStart Date End Date Corine Gold MD [address] [place] [address] PCP - GeneralUnited [facility] Medicine03/25/24am MemberRelationshipSpecialtyStart Date End Date Unallocated, Noms MD Anoop [address] [place] [address] PCP - [facility] Medicine04/22/24Team MemberRelationshipSpecialtyStart DateEnd Date Unallocated, Noms MD Anoop [address] [place] [address] PCP - [facility] Medicine04/22/24 MemberRelationshipSpecialtyStart DateEnd Date Corine Gold MD [address] [place] [address] [facility] - [facility]06/11/24Team MemberRelationshipSpecialtyStart DateEnd Date Corine Gold MD [address] [place] [address] PCP - GeneralUnited [facility] Medicine03/25/24Team MemberRelationshipSpecialtyStart Date End Date Corine Gold MD [address] [place] [address] [facility]06/11/24Team MemberRelationshipSpecialtyStart DateEnd Date Abdifatah Brady (Historical) PCP - General05/21/13am MemberRelationshipSpecialtyStart DateEnd Date Abdifatah Brady (Historical) PCP - General05/21/13am MemberRelationshipSpecialtyStart DateEnd Date Corine Gold MD [address], [place] [address] PCP - GeneralInternal Medicine03/25/24Team MemberRelationshipSpecialtyStart Date End Date Corine Gold MD [address], [place] [address] PCP - GeneralUnited [facility] Medicine03/25/24Te MemberRelationshipSpecialtyStart Date End Date Corine Gold MD [address], [place] [address] PCP - GeneralUnited [facility] Medicine03/25/24 MemberRelationshipSpecialtyStart Date End Date Corine Gold MD [address], [place] [address] PCP - GeneralInternal Medicine03/25/24Team MemberRelationshipSpecialtyStart Date End Date Corine Gold MD [address], [place] [address] PCP - GeneralInternal Medicine03/25/24am MemberRelationshipSpecialtyStart Date End Date Lamont Blair MD [facility] - [facility]/ Unallocated, Arlen Davalos MD [address] [place] [address] PCP - GeneralFatxly Medicine Lamont Blair MD [address] [place] [address] PCP - [facility]05/21/2510Team MemberRelationshipSpecialtyStart Date End Date Corine Gold MD [address] [facility] [address] [place] [place], [place] [id number] PCP - GeneralInternal Medicine03/25/24 Inactive Administered Medications [...] and Hematology/Oncology 4) Eclampsia or Preeclampsia New Bag/Syringe/Qcakto1404/12/2023 12:24 PM EST2 g280 mL/hr methocarbamol iv infusion 1,000 mg in NaCl 0.9% 100 mL (ROBAXIN) 1,000 mg, INTRAVENOUS, Administer over 30 Minutes, ONCE, 1 dose, On Mon04/12/23 at 1130, AdministerIV while in recumbent position. Maintain position for at least 10-15 minutes following infusion. New Bag/Syringe/Rfnqdn5904/12/2023 11:50 AM EST1,000 mg NaCl 0.9% 1,000 mL iv bolus 1,000 mL, INTRAVENOUS, at 999 mL/hr, Administer over 1 Hours, ONCE, 1 dose, On Mon04/12/23 at 1130 New Bag/Syringe/Trgkwb2704/12/2023 11:30 AM EST1,000 mL999 mL/hr promethazine 25 [...] and Hematology/Oncology 4) Eclampsia or Preeclampsia New Bag/Syringe/Yooycs5604/13/2023 9:46 AM EST2 g250 mL/hr methocarbamol iv infusion 1,000 mg in NaCl 0.9% 100 mL (ROBAXIN) 1,000 mg, INTRAVENOUS, Administer over 30 Minutes, ONCE, 1 dose, On Meg 04/13/23 at 0830, AdministerIV while in recumbent position. Maintain position for at least 10-15 minutes following infusion. New Bag/Syringe/Coziig3404/13/2023 9:12 AM EST1,000 mg NaCl 0.9% 1,000 mL iv bolus 1,000 mL, INTRAVENOUS, at 999 mL/hr, Administer over 1 Hours, ONCE, 1 dose, On Mon04/13/23 at 0830 New Bag/Syringe/Fwsyxs3104/13/2023 8:53 AM EST1,000 mL999 mL/hr promethazine 25 [...] 0928,Sedation/Dystonia/Akathisia/Anxiety 3rd line Given04/14/2023 9:28 AM EST25 kkSktdo8204/14/2023 8:46 AM EST25 mg keTORolac 30 mg [...] and Hematology/Oncology 4) Eclampsia or Preeclampsia New Bag/Syringe/Xzxizk3304/14/2023 10:07 AM EST2 g250 mL/hr methocarbamol iv infusion 1,000 mg in NaCl 0.9% 100 mL (ROBAXIN) 1,000 mg, INTRAVENOUS, Administer over 30 Minutes, ONCE, 1 dose, On Mon04/14/23 at 0830, AdministerIV while in recumbent position. Maintain position for at least 10-15 minutes following infusion. Jhxoisdxz62/23/2024 9:30 AM ESTNew Bag/Syringe/Ctgbrj5604/14/2023 8:53 AM EST1,000 mg NaCl 0.9% 1,000 mL iv bolus 1,000 mL, INTRAVENOUS, at 999 mL/hr, Administer over 1 Hours, ONCE, 1 dose, On Mon04/14/23 at 0830 Kbjmhseti44/23/2024 9:30 AM AGC774 mL/hrNew Bag/Syringe/Nayqls1704/14/2023 8:53 AM EST1,000 mL999 mL/hr prochlorperazine 10 [...] BE BASED ON THE PRIMARY CLINICAL RECORDS. [facility]. provides no warranty or guarantee of the accuracy or completeness of information in this document.
--- NOTE | 2025-02-17 09:13 | PC.NURSE ---
Follow up appt. with Dr. Gold (PCP) 02/18 @ 8:30am Follow up appt. with Dr. Peña (pulmonology) 03/25/25 @ 9:45am
--- NOTE | 2025-02-17 13:21 | CM.DCFOLLOWU ---
1st attempt, no answer, 02/17
--- NOTE | 2025-02-17 15:05 | CM.DCFOLLOWU ---
Person spoke with:Sandie How are you feeling? Ok How is your pain? No pain Did you understand your discharge instructions? Yes Do you have any questions about your discharge instructions? No Were you given any prescriptions at discharge? Yes Were you able to get your prescriptions filled? Yes Do you understand how to take your medications as ordered? Yes Do you have any questions about your follow up appointment and do you plan to keep your follow up appointment? The patient was notified of her appt with Dr Gold on 02/[address] Peña on 03/25 at 0930. Is there anything else that you would like to discuss? No Questions/Comments/Concerns/Other:
== END 2025-02-15 11:10 | disposition home or self-care (01) | DRG 141 ==
LOC: ER 18:27 → MS 02-15 09:21
PROVIDERS: Admitting Provider Internal Medicine; Emergency Provider Student in an Organized Health Care Education/Training Program; PCP Student in an Organized Health Care Education/Training Program; Visit Provider Internal Medicine
DX: J45.901 Unspecified asthma with (acute) exacerbation (principal); J96.01 Acute respiratory failure with hypoxia; J11.1 Influenza due to unidentified influenza virus with other respiratory manifestations; G43.909 Migraine, unspecified, not intractable, without status migrainosus; D64.9 Anemia, unspecified; G40.909 Epilepsy, unspecified, not intractable, without status epilepticus; F32.A Depression, unspecified; F41.9 Anxiety disorder, unspecified; K21.9 Gastro-esophageal reflux disease without esophagitis; I34.1 Nonrheumatic mitral (valve) prolapse; M54.81 Occipital neuralgia; E28.2 Polycystic ovarian syndrome; Z79.52 Long term (current) use of systemic steroids; Z79.899 Other long term (current) drug therapy
CPT/HCPCS: 36415; 71045; 80048; 83735; 84703; 85007; 85025; 85027; 85378; 87804; 87811; 93005; 94640; 94761; 96365; 96372; 96375; 99285; J1650; J2919; J3475